=== PATIENT | male | born 1960 | race Caucasian/White ===

== ENCOUNTER 2024-04-05 15:06 | Inpatient (IN) | payer MEDICARE, MEDICAID, SELFPAY ==
[2024-04-05 15:07] VITALS: BP 126/78; PULSE 78; RESP 16; TEMP 36.6; O2SAT 99
[2024-04-05 15:08] VITALS: BP 178/107; PULSE 117; RESP 18; TEMP 36.2; O2SAT 98; BMI 23.3
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
[2024-04-05] MEDS: Ondansetron 4 MG/2 ML Vial IV (15:30)
[2024-04-05] MEDS: Phenobarbital 32.4 MG Tablet 97.2 MG PO (15:30)
[2024-04-05 15:44] LABS: Absolute Lymphocyte Count 2.59 X10^3/uL (0.83-4.51); Absolute Neutrophil Count 2.7 X10^3/uL (2.0-7.7); Basophil# 0.04 X10^3/uL; Basophil% 0.7 % (0-1); Eosinophil# 0.02 X10^3/uL; Eosinophils% 0.3 % (0-5); Hematocrit 33.1 % (40-54); Hemoglobin 11.6 g/dL (13.0-16.5); Lymphocyte # 2.59 X10^3/ul (0.83-4.51); Mean Corpuscular Hgb 31.1 pg (27.0-32.0); Mean Corpuscular Volume 88.7 fL (80-94); Mean Platelet Vol. 8.6 fl (6.2-12.0); Monocyte# 0.56 X10^3/uL; Monocyte% 9.5 % (0-10); NRBC Flagged by Analyzer 0 % (0-5); Neutrophil # 2.66 X10^3/uL (2.7-7.7); Neutrophil % 45.2 % (47-70); Platelet Count 114 K/mm3 (150-450); RBC Distribution Width SD 45.4 fl (35.1-43.9); Red Blood Count 3.73 M/mm3 (4.6-6.2); White Blood Count 5.9 K/mm3 (4.4-11.0)
[2024-04-05 15:53] LABS: International Normalized Ratio 1.1; Prothrombin Time (Protime)PT. 13.8 SECONDS (11.7-14.9)
[2024-04-05 16:06] LABS: AST(SGOT) 30 U/L (15-37); Alanine Aminotransfer ALT/SGPT 21 U/L (16-61); Albumin, Serum 3.8 g/dL (3.2-5.0); Alkaline Phosphatase 84 U/L (45-117); Anion Gap 14 (5-15); BUN 4 mg/dL (7-18); BUN/Creat Ratio 4.3 RATIO (10-20); Calcium,Total 8.7 mg/dL (8.5-10.1); Chloride 96 mmol/L (98-107); Creatinine, Serum 0.94 mg/dL (0.70-1.30); EST Glomerular Filtration Rate 86 mL/min (>60); Est Glom Filt Rate - Afr Amer 104 mL/min (>60); Estimated Creatinine Clearance 81.97 ml/min; Globulin 3.9 g/dL (2.2-4.2); Glucose 99 mg/dL (74-106); Potassium 3.3 mmol/L (3.5-5.1); Protein, Total 7.7 g/dL (6.4-8.2); Sodium Level 127 mmol/L (136-145)
--- NOTE | 2024-04-05 16:25 | NURSING ---
[facility] ETOH DEPENDENCE
[2024-04-05 16:27] LABS: Amphetamine Urine VISTA NEGATIVE (<1000 ng/mL); Barbiturate Urine VISTA NEGATIVE (< 200 ng/mL); Benzodiazepine Urine VISTA NEGATIVE (< 200 ng/mL); Cocaine Urine VISTA NEGATIVE (< 300 ng/mL); Ecstacy Urine VISTA NEGATIVE (< 500 ng/mL); Methadone Urine VISTA NEGATIVE (< 300 ng/mL); PCP Urine VISTA NEGATIVE (< 25 ng/mL); THC Urine VISTA POSITIVE (< 50 ng/mL); Vista UDS pH Range 6
[2024-04-05 17:02] VITALS: BP 155/92; PULSE 94; RESP 16; TEMP 36.3; O2SAT 98
[2024-04-05 17:07] VITALS: BP 155/92; PULSE 94; RESP 16; TEMP 36.3; O2SAT 98
[2024-04-05] MEDS: 0.9% Normal Saline (1000mL) 1,000 ML 150 ML IV (17:08)
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
[2024-04-05 17:24] VITALS: BMI 23.1
[2024-04-05 18:00] VITALS: BP 162/92; PULSE 96; RESP 18; TEMP 36.9; O2SAT 100
[2024-04-05] MEDS: hydrOXYzine PAM 25 MG Capsule 50 MG PO (18:02)
[2024-04-05] MEDS: Potassium Chloride Oral Tablet 20 MEQ 40 MEQ PO (18:02)
[2024-04-05] MEDS: Loperamide 2 MG Capsule PO (18:02)
[2024-04-05] MEDS: Acetaminophen 500 MG Tablet PO (18:02)
[2024-04-05] MEDS: Pantoprazole Sodium 40 MG Tablet PO ×2 (18:02→22:49)
[2024-04-05] MEDS: Tamsulosin HCl 0.4 MG Capsule PO (18:02)
[2024-04-05] MEDS: 0.9% Normal Saline (1000mL) 1,000 ML 75 ML IV (18:02)
[2024-04-05 18:22] LABS: Phosphorus 1.7 mg/dL (2.5-4.9)
[2024-04-05] MEDS: Losartan Potassium 100 MG Tablet PO (18:42)
[2024-04-05 19:55] VITALS: BP 120/50; PULSE 115; RESP 18; TEMP 36.4; O2SAT 98
[2024-04-05] MEDS: Phenobarbital 32.4 MG Tablet 64.8 MG PO (20:00)
[2024-04-05 21:02] LABS: Magnesium 1.2 mg/dL (1.6-2.6); Sodium Level 135 mmol/L (136-145)
[2024-04-05] MEDS: Pravastatin 40 MG Tablet PO (22:49)
[2024-04-05] MEDS: Sodium Chloride 1 GM Tablet PO (22:49)
[2024-04-05] MEDS: Mirtazapine 15 MG Tablet PO (22:49)
[2024-04-05 23:14] LABS: Bedside Glucose 108 mg/dL (74-106)
[2024-04-06 00:10] LABS: Sodium Level 138 mmol/L (136-145)
[2024-04-06 00:18] VITALS: BP 138/78; PULSE 95; RESP 18; TEMP 36.6; O2SAT 98
[2024-04-06] MEDS: Phenobarbital 32.4 MG Tablet 64.8 MG PO ×7 (00:23→23:22)
[2024-04-06 04:24] VITALS: BP 151/82; PULSE 100; RESP 18; TEMP 36.8; O2SAT 99
[2024-04-06] MEDS: Levothyroxine 75 MCG Tablet PO (06:32)
[2024-04-06] MEDS: 0.9% Normal Saline (1000mL) 1,000 ML 75 ML IV (06:32)
[2024-04-06 06:57] LABS: Bedside Glucose 91 mg/dL (74-106)
--- NOTE | 2024-04-06 07:24 | PN.HOSP_ITS ---
Reason for Visit Reason for Visit: Acute alcohol withdrawal/detox Subjective Subjective Mr. Carrasco is a 64-year-old white male who presents emergency department at [facility] on 04/05/2024 for alcohol detox. Patient has a history of chronic alcohol use and drinks about 20 beers daily. He drank about 4-5 beers prior to coming to the emergency department and reported he felt mildly restless jittery and anxious at the time of presentation but denied any tremor, shivering, or disequilibrium as well as nausea vomiting. His remote history of tobacco abuse. 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 He denied any other substance abuse. He has been through detox before but had relapsed. Vital signs on presentation showed temperature of 97.8, heart rate 78, respiratory rate 16, blood pressure was 126/78, pulse ox was 99% on room air. His CBC showed a mild normocytic anemia with a hemoglobin of 11.6 and a thrombocytopenia with a platelet count of 114,000. Chemistry panel was markedly abnormal on presentation with a sodium of 127 but on repeat improved to 138, hypokalemia with potassium of 3.3 and a serum bicarb of 17. Serum creatinine was normal. Phosphorus was low at 1.7 and magnesium was 1.2. Total bilirubin was 1.2 liver enzymes were normal. His toxicology screen was positive for cannabis and his EtOH level was 297. He was admitted to the medical surgical floor and placed on a phenobarbital taper as well as adjunctive medication for symptom control, thiamine, and folate. CIAL was ordered for monitoring and 180 was consulted. Objective Data Objective Data Vital Signs: Vital Signs Temp Pulse Resp BP Pulse Ox O2 Del Method 98.3 F 100 18 151/82 H 99 Room Air 04/06/24 04:24 04/06/24 04:24 04/06/24 04:24 04/06/24 04:24 04/06/24 04:24 04/06/24 04:24 Oxygen Delivery Method Room Air Weight: 73.255 kg Body Mass Index (BMI) 23.1 Intake & Output: Intake and Output for Last 24 Hours 04/04/24 04/05/24 04/06/24 23:59 23:59 23:59 Intake Total 152.5 / 152.5 1837.5 / 1837.5 Balance 152.5 / 152.5 1837.5 / 1837.5 Lab / Micro Data 04/05/24 15:25 04/06/24 07:41 Labs: Laboratory Results - last 24 hr 04/05/24 15:13: Urine Opiates Screen NEGATIVE, Urine Methadone Screen NEGATIVE, Ur Barbiturates Screen NEGATIVE, Ur Phencyclidine Scrn NEGATIVE, Ur Amphetamines Screen NEGATIVE, MDMA (Ecstasy) Screen NEGATIVE, U Benzodiazepines Scrn NEGATIVE, Urine Cocaine Screen NEGATIVE, U Cannabinoids Screen POSITIVE H, Ur Drug Screen Comment 04/05/24 15:25: WBC 5.9, RBC 3.73 L, Hgb 11.6 L, Hct 33.1 L, MCV 88.7, MCH 31.1, MCHC 35.0, RDW Std Deviation 45.4 H, RDW Coeff of Heidi 14.0, Plt Count 114 L, MPV 8.6, Immature Gran % (Auto) 0.300, Neut % (Auto) 45.2 L, Lymph % (Auto) 44.0 H, Highland % (Auto) 9.5, Eos % (Auto) 0.3, Baso % (Auto) 0.7, Absolute Neuts (auto) 2.7, Absolute Lymphs (auto) 2.59, Nucleated RBC % 0, PT 13.8, INR 1.1, Sodium 127 L, Potassium 3.3 L, Chloride 96 L, Carbon Dioxide 17.0 L, Anion Gap 14, BUN 4 L, Creatinine 0.94, Estim Creat Clear Calc 81.97, Est GFR (MDRD) Af Amer 104, Est GFR (MDRD) Non-Af 86, BUN/Creatinine Ratio 4.3 L, Glucose 99, Calcium 8.7, P hosphorus 1.7 L, Total Bilirubin 1.20 H, AST 30, ALT 21, Alkaline Phosphatase 84, Total Protein 7.7, Albumin 3.8, Globulin 3.9, Albumin/Globulin Ratio 1.0, Ethyl Alcohol 297.0 04/05/24 20:38: Sodium 135 L, Magnesium 1.2 L 04/05/24 22:52: POC Glucose 108 H 04/05/24 23:39: Sodium 138 04/06/24 06:36: POC Glucose 91 Physical Exam Const alert, oriented x3, no apparent distress and average body habitus; Negative for healthy appearing Constitutional Narrative: Middle-aged, white male, lying in bed, appears older than stated age, appears comfortable, nontoxic, very cooperative and pleasant HEENT head/scalp atraumatic and moist oral mucous membranes HEENT Narrative: Mallampati 2, no thrush, patient is a dentulous Head and Scalp: normocephalic Eyes PERRL, EOMs intact bilaterally and conjunctivae normal Eyes Narrative: No scleral icterus Neck no lymphadenopathy and supple Neck Narrative: Trachea midline, no thyroid enlargement Resp normal respiratory effort, no retractions, no use of accessory muscles and clear to auscultation bilaterally Auscultation: Negative for rales, rhonchi or wheezes Cardio regular rate, regular rhythm, S1 normal heart sound, S2 normal heart sound, no murmurs, no rub, no gallops and no clicks GI normal to inspection, nondistended, normoactive bowel sounds, soft to palpation and non-tender Extremity no clubbing, cyanosis or edema Extremity Narrative: Pedal pulses are 2+ Skin no wounds, skin turgor normal, no jaundice, no petechiae and no mottling Neuro oriented x3, moves all extremities and no focal motor deficits Neuro Narrative: Tremor noted Speech: speech normal Psych affect normal Psych Narrative: Very pleasant, interacts appropriately Assessment & Plan Assessment/Plan (1) Alcohol dependence: (2) Alcohol withdrawal: (3) Hypokalemia: (4) Hyponatremia: (5) Hypophosphatemia: (6) Hypomagnesemia: PLAN: Plan Acute alcohol withdrawal -Drinks about 20 beers a day and was intoxicated at time of presentation with a blood alcohol level of 297 -Continue phenobarbital taper -continue CIWA -Supportive medications for symptom management -Continue thiamine -Continue with folate -180 consultation for assistance with discharge planning Hypomagnesemia -Repeat a.m. lab and replace if low Hypophosphatemia -Repeat a.m. lab and replace if low Hypokalemia -Repeat a.m. lab and replace if low Hyponatremia -Resolved Metabolic acidosis -Serum bicarb on admission was 17 with an elevated ion anion gap -Suspect starvation versus alcohol -A.m. lab is pending Normocytic anemia -Baseline is unknown -Will repeat CBC in a.m. for stability Thrombocytopenia -Platelets 114,000 on admission -Suspect chronic with history of liver disease however baseline is unknown -Repeat lab to monitor for stability in the a.m. 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 Mcmahan after discharge -No current signs of decompensation GERD -Suspect some acute gastritis with the amount of alcohol he drinks and symptoms on presentation -Discontinue home famotidine -Continue Protonix IV twice daily -GI referral at discharge BPH with obstruction -Continue Flomax DM-2 -Hemoglobin A1c is pending -Hold home metformin -SSI -Accu-Cheks as ordered Hypertension -continue home losartan -Continue home Lasix -Continue home amlodipine 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 -Continue home levothyroxine Osteoporosis -Restart Fosamax at discharge Gout -Continue home colchicine DVT prophylaxis -SCDs -Overall low risk and encourage early and frequent ambulation CODE STATUS -Full code as per discussion--> will place order Charges/Coding Visit Charges Inpatient E&M: 67900 [facility] Hosp L3
[2024-04-06 08:00] VITALS: BP 162/89; PULSE 96; RESP 13; TEMP 36.9; O2SAT 98
[2024-04-06] MEDS: Ondansetron 8 MG Tablet PO (08:09)
[2024-04-06] MEDS: Furosemide 20 MG Tablet PO (08:09)
[2024-04-06] MEDS: Folic Acid 1 MG Tablet PO (08:09)
[2024-04-06] MEDS: Loperamide 2 MG Capsule PO ×2 (08:09→16:35)
[2024-04-06] MEDS: Pantoprazole Sodium 40 MG Tablet PO ×2 (08:10→19:48)
[2024-04-06] MEDS: Thiamine Hydrochloride 100 MG Tablet PO (08:10)
[2024-04-06] MEDS: Potassium Chloride Oral Tablet 20 MEQ 40 MEQ PO (08:10)
[2024-04-06] MEDS: amLODIPine 2.5 MG Tablet PO (08:10)
[2024-04-06] MEDS: Losartan Potassium 100 MG Tablet PO (08:11)
[2024-04-06] MEDS: Sodium Chloride 1 GM Tablet PO ×2 (08:12→21:30)
[2024-04-06] MEDS: hydrOXYzine PAM 25 MG Capsule 50 MG PO ×2 (08:17→16:35)
[2024-04-06] MEDS: Dicyclomine 10 MG Capsule 20 MG PO ×2 (08:17→16:35)
[2024-04-06] MEDS: Gabapentin 300 MG Capsule PO ×2 (08:18→18:55)
[2024-04-06] MEDS: Acetaminophen 500 MG Tablet PO (08:18)
[2024-04-06 08:27] LABS: Anion Gap 5 (5-15); BUN 6 mg/dL (7-18); BUN/Creat Ratio 6.4 RATIO (10-20); Calcium,Total 8.4 mg/dL (8.5-10.1); Chloride 111 mmol/L (98-107); Creatinine, Serum 0.93 mg/dL (0.70-1.30); EST Glomerular Filtration Rate 87 mL/min (>60); Est Glom Filt Rate - Afr Amer 105 mL/min (>60); Estimated Creatinine Clearance 82.86 ml/min; Glucose 96 mg/dL (74-106); Magnesium 1.3 mg/dL (1.6-2.6); Phosphorus 1.6 mg/dL (2.5-4.9); Sodium Level 137 mmol/L (136-145)
--- NOTE | 2024-04-06 10:57 | ADDICTION ---
This property underwriter met with PT to conduct ASAM, MSE, AUDIT, DUDIT assessments. PT A+Ox4 and participated actively. All RAMP assessments completed. PT reports that plans to f/u with treatment services in [facility]. He has agreed to outpatient treatment as well as meets the criteria for the Vivitrol shot and would like it prior to d/c. [facility] will follow up with later injections.
[2024-04-06] MEDS: Insulin Lispro 100 UNIT/ML INSULN.PEN SC (11:34)
[2024-04-06 11:53] LABS: Bedside Glucose 180 mg/dL (74-106)
[2024-04-06 12:08] LABS: Hemoglobin A1c 4.6 % (3.8-5.6)
[2024-04-06] MEDS: Magnesium Sulfate 2 GM in Dextrose 5%-Water (100mL Bag) 100 ML IV (12:19)
[2024-04-06] MEDS: Sodium Phosphate/Na Biphos 30 MMOL in 0.9% Normal Saline (250mL Bag) 250 ML 62.5 MMOL IV (12:20)
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
--- NOTE | 2024-04-06 15:57 | CHAPLAIN ---
Type of Pastoral Visit ___ Initial Visit ___ Follow-up Visit ___ On-call Visit ___ General Patient Visit ___ Spiritual Assessment ___ Family Conference ___ Bereavement ___ Rapid Response ___ Code Blue ___ Other (describe below) Pastoral Care Referral From ___ Patient ___ Family ___ Nurse ___ Physician ___ Doubler Helper ___ Collections Analyst ___ Other (describe below) Sacrament/Intervention ___ Active listening ___ Anointing ___ Evangelical ___ Bereavement ___ Communion ___ Zari exploration ___ ___ Life review ___ Prayer ___ Reconciliation ___ Sacrament of Sick ___ Supportive presence ___ Wedding ___ Other (describe below) Pastoral Comments patient was sound asleep; left a calling card and will attempt a visit tomorrow
[2024-04-06 16:00] VITALS: BP 135/91; PULSE 90; RESP 13; TEMP 36.7; O2SAT 99
[2024-04-06] MEDS: Tamsulosin HCl 0.4 MG Capsule PO (16:23)
[2024-04-06 16:34] VITALS: BP 165/91; PULSE 90
[2024-04-06] MEDS: hydrALAZINE 20 MG/ML Vial 10 MG IV (16:34)
[2024-04-06 17:04] LABS: Bedside Glucose 97 mg/dL (74-106)
[2024-04-06] MEDS: Mirtazapine 15 MG Tablet PO (21:30)
[2024-04-06] MEDS: Pravastatin 40 MG Tablet PO (21:30)
[2024-04-06 22:00] VITALS: BP 132/71; PULSE 95; RESP 17; TEMP 36.4; O2SAT 99
[2024-04-07 01:48] LABS: Bedside Glucose 108 mg/dL (74-106)
[2024-04-07] MEDS: Phenobarbital 32.4 MG Tablet 64.8 MG PO ×6 (03:43→23:50)
[2024-04-07] MEDS: Levothyroxine 75 MCG Tablet PO (03:44)
[2024-04-07 03:45] VITALS: BP 144/90; PULSE 96; RESP 16; TEMP 36.6; O2SAT 100
[2024-04-07] MEDS: hydrOXYzine PAM 25 MG Capsule 50 MG PO ×3 (05:27→18:16)
[2024-04-07] MEDS: Gabapentin 300 MG Capsule PO ×3 (05:28→21:34)
[2024-04-07 06:05] LABS: Anion Gap 5 (5-15); BUN 8 mg/dL (7-18); BUN/Creat Ratio 7.8 RATIO (10-20); Calcium,Total 8.5 mg/dL (8.5-10.1); Chloride 109 mmol/L (98-107); Creatinine, Serum 1.02 mg/dL (0.70-1.30); EST Glomerular Filtration Rate 78 mL/min (>60); Est Glom Filt Rate - Afr Amer 95 mL/min (>60); Estimated Creatinine Clearance 75.54 ml/min; Glucose 131 mg/dL (74-106); Magnesium 1.5 mg/dL (1.6-2.6); Phosphorus 2.2 mg/dL (2.5-4.9); Potassium 3.9 mmol/L (3.5-5.1); Sodium Level 140 mmol/L (136-145)
[2024-04-07 07:11] LABS: Bedside Glucose 132 mg/dL (74-106)
[2024-04-07] MEDS: Potassium Chloride Oral Tablet 20 MEQ 40 MEQ PO (07:20)
[2024-04-07] MEDS: Thiamine Hydrochloride 100 MG Tablet PO (07:20)
[2024-04-07] MEDS: amLODIPine 2.5 MG Tablet PO (07:20)
[2024-04-07] MEDS: Pantoprazole Sodium 40 MG Tablet PO ×2 (07:20→21:34)
[2024-04-07] MEDS: Folic Acid 1 MG Tablet PO (07:20)
[2024-04-07] MEDS: Losartan Potassium 100 MG Tablet PO (07:21)
[2024-04-07] MEDS: Furosemide 20 MG Tablet PO (07:21)
[2024-04-07] MEDS: Sodium Chloride 1 GM Tablet PO ×2 (07:21→21:34)
[2024-04-07] MEDS: Dicyclomine 10 MG Capsule 20 MG PO ×3 (07:29→23:50)
[2024-04-07] MEDS: Loperamide 2 MG Capsule PO (07:29)
[2024-04-07 07:30] VITALS: BP 145/93; PULSE 101; RESP 14; RESP 15; TEMP 36.7; O2SAT 99
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
[2024-04-07] MEDS: Magnesium Sulfate 2 GM in Dextrose 5%-Water (100mL Bag) 100 ML IV (10:34)
[2024-04-07] MEDS: Sodium Phosphate/Na Biphos 21 MMOL in 0.9% Normal Saline (250mL Bag) 250 ML 84 MMOL IV (10:34)
[2024-04-07] MEDS: 0.9% Saline Lock 10 ML Syringe IV ×2 (10:35→10:47)
[2024-04-07] MEDS: 0.9% Normal Saline (250mL Bag) 250 ML 15 ML IV ×2 (10:46→10:48)
[2024-04-07 11:23] LABS: Bedside Glucose 132 mg/dL (74-106)
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
--- NOTE | 2024-04-07 13:25 | PCM.PN.HOSP ---
Reason for Visit Reason for Visit: Alcohol detox Subjective Subjective Patient states he is developed a sinus headache and some congestion. Concerned that he may have a viral upper respiratory infection versus allergies. Otherwise states that from a withdrawal standpoint he seems to be doing okay. He is reporting that the plan is for inpatient treatment and wants with however it looks like he is supposed to follow-up as an outpatient in [place] and receive Vivitrol. We did discuss probable discharge tomorrow if he continues to feel well and patient is agreeable. Objective Data Objective Data Vital Signs: Vital Signs Temp Pulse Resp BP Pulse Ox O2 Del Method 98.0 F 101 H 15 145/93 H 99 Room Air 04/07/24 07:30 04/07/24 07:30 04/07/24 07:30 04/07/24 07:30 04/07/24 07:30 04/07/24 07:30 Oxygen Delivery Method Room Air Weight: 73.255 kg Body Mass Index (BMI) 23.1 Intake & Output: Intake and Output for Last 24 Hours 04/05/24 04/06/24 04/07/24 23:59 23:59 23:59 Intake Total 152.5 / 152.5 3201.5 / 3201.5 300.25 / 300.25 Balance 152.5 / 152.5 3201.5 / 3201.5 300.25 / 300.25 Lab / Micro Data 04/05/24 15:25 04/07/24 05:05 Labs: Laboratory Results - last 24 hr 04/06/24 16:25: POC Glucose 97 04/06/24 21:27: POC Glucose 108 H 04/07/24 05:05: Sodium 140, Potassium 3.9, Chloride 109 H, Carbon Dioxide 26.0, Anion Gap 5, BUN 8, Creatinine 1.02, Estim Creat Clear Calc 75.54, Est GFR (MDRD) Af Amer 95, Est GFR (MDRD) Non-Af 78, BUN/Creatinine Ratio 7.8 L, Glucose 131 H, Calcium 8.5, Phosphorus 2.2 L, Magnesium 1.5 L 04/07/24 06:37: POC Glucose 132 H 04/07/24 10:57: POC Glucose 132 H Physical Exam Const alert, oriented x3, no apparent distress, average body habitus and well nourished; Negative for healthy appearing Constitutional Narrative: Middle-aged, white male, lying in bed, appears older than stated age, appears comfortable, nontoxic, very cooperative and pleasant HEENT head/scalp atraumatic and moist oral mucous membranes Resp normal respiratory effort, no retractions, no use of accessory muscles and clear to auscultation bilaterally Auscultation: Negative for rales, rhonchi or wheezes Cardio regular rate, regular rhythm, S1 normal heart sound, S2 normal heart sound, no murmurs, no rub, no gallops and no clicks GI normal to inspection, nondistended, normoactive bowel sounds, soft to palpation and non-tender Extremity no clubbing, cyanosis or edema Neuro oriented x3, moves all extremities and no focal motor deficits Neuro Narrative: Tremor has significantly improved Speech: speech normal Psych affect normal Psych Narrative: Very pleasant, interacts appropriately Assessment & Plan Assessment/Plan (1) Alcohol dependence: (2) Alcohol withdrawal: (3) Hypokalemia: (4) Hyponatremia: (5) Hypophosphatemia: (6) Hypomagnesemia: PLAN: Plan Acute alcohol withdrawal -Drinks about 20 beers a day and was intoxicated at time of presentation with a blood alcohol level of 297 -Continue phenobarbital taper -continue CIWA -Supportive medications for symptom management -Continue thiamine -Continue with folate -180 has seen the patient plan discharge follow-up outpatient Hypomagnesemia -Improved but still low will rebolus today and recheck Hypophosphatemia -Improved but still low will rebolus and recheck tomorrow Hypokalemia -Resolved Hyponatremia -Resolved Metabolic acidosis -Resolved Normocytic anemia -Baseline is unknown Thrombocytopenia -Platelets 114,000 on admission -Suspect chronic with history of liver disease however baseline is unknown Alcoholic liver disease -Per report patient states he has seen GI previously but 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 Mcmahan after discharge -No current signs of decompensation GERD -Suspect some acute gastritis with the amount of alcohol he drinks and symptoms on presentation -Transition Protonix from IV to p.o. daily -GI referral at discharge BPH with obstruction -Continue Flomax DM-2 -4.6 A1c -Hold home metformin -SSI -Accu-Cheks as ordered Hypertension -continue home losartan -Continue home Lasix -Continue home amlodipine 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 -Continue home levothyroxine Osteoporosis -Restart Fosamax at discharge Gout -Continue home colchicine DVT prophylaxis -SCDs -Overall low risk and encourage early and frequent ambulation CODE STATUS -Full code as per discussion Charges/Coding Visit Charges Inpatient E&M: 02156 [facility] Hosp L2
[2024-04-07 14:00] VITALS: BP 142/85; PULSE 101; RESP 14; TEMP 36.4; O2SAT 97
[2024-04-07] MEDS: Tamsulosin HCl 0.4 MG Capsule PO (16:25)
[2024-04-07 16:36] LABS: Bedside Glucose 117 mg/dL (74-106)
[2024-04-07] MEDS: Acetaminophen 500 MG Tablet PO (18:16)
[2024-04-07 20:19] VITALS: BP 153/87; PULSE 97; RESP 16; TEMP 36.6; O2SAT 100
[2024-04-07] MEDS: Mirtazapine 15 MG Tablet PO (21:34)
[2024-04-07] MEDS: Pravastatin 40 MG Tablet PO (21:34)
[2024-04-07] MEDS: Insulin Lispro 100 UNIT/ML INSULN.PEN SC (21:34)
[2024-04-07 21:58] LABS: Bedside Glucose 152 mg/dL (74-106)
[2024-04-08] MEDS: Phenobarbital 32.4 MG Tablet 64.8 MG PO ×3 (02:35→15:19)
[2024-04-08] MEDS: hydrOXYzine PAM 25 MG Capsule 50 MG PO ×3 (02:35→13:14)
[2024-04-08] MEDS: Acetaminophen 500 MG Tablet PO ×2 (02:35→07:05)
[2024-04-08 02:42] VITALS: BP 140/87; PULSE 80; RESP 16; TEMP 36.3; O2SAT 100
[2024-04-08] MEDS: Levothyroxine 75 MCG Tablet PO (06:19)
[2024-04-08] MEDS: Ondansetron 8 MG Tablet PO ×2 (06:24→15:18)
[2024-04-08] MEDS: Dicyclomine 10 MG Capsule 20 MG PO ×2 (06:24→13:14)
[2024-04-08] MEDS: Gabapentin 300 MG Capsule PO ×2 (06:26→13:15)
[2024-04-08 07:31] LABS: Bedside Glucose 147 mg/dL (74-106)
[2024-04-08 08:03] LABS: Magnesium 1.8 mg/dL (1.6-2.6); Phosphorus 2.5 mg/dL (2.5-4.9)
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
[2024-04-08] MEDS: amLODIPine 2.5 MG Tablet PO (09:01)
[2024-04-08] MEDS: Pantoprazole Sodium 40 MG Tablet PO (09:01)
[2024-04-08] MEDS: Potassium Chloride Oral Tablet 20 MEQ 40 MEQ PO (09:01)
[2024-04-08] MEDS: Folic Acid 1 MG Tablet PO (09:01)
[2024-04-08] MEDS: Losartan Potassium 100 MG Tablet PO (09:02)
[2024-04-08] MEDS: Thiamine Hydrochloride 100 MG Tablet PO (09:02)
[2024-04-08] MEDS: Furosemide 20 MG Tablet PO (09:02)
[2024-04-08] MEDS: Sodium Chloride 1 GM Tablet PO (09:02)
[2024-04-08 09:13] VITALS: BP 141/85; PULSE 84; RESP 18; TEMP 36.4; O2SAT 100
[2024-04-08 09:18] VITALS: BP 141/85; PULSE 84; RESP 18; TEMP 36.4; O2SAT 100
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
--- NOTE | 2024-04-08 12:12 | CHAPLAIN ---
Type of Pastoral Visit ___ Initial Visit _x__ Follow-up Visit ___ On-call Visit ___ General Patient Visit ___ Spiritual Assessment ___ Family Conference ___ Bereavement ___ Rapid Response ___ Code Blue ___ Other (describe below) Pastoral Care Referral From _x__ Patient ___ Family ___ Nurse ___ Physician ___ Automatic Grinding Machine Operator ___ Security Sme _x__ Other (describe below) Sacrament/Intervention _x__ Active listening ___ Anointing ___ Yarsanism ___ Bereavement ___ Communion _x__ Zari exploration ___ ___ Life review _x__ Prayer ___ Reconciliation ___ Sacrament of Sick _x__ Supportive presence ___ Wedding ___ Other (describe below) Pastoral Comments call came to this retail center receptionist for a visit to this patient who had been seen yesterday; pt had requested visit from retail center receptionist again; per community health outreach worker the pt has a sitter due to SI and comments made during the night; today the patient is upset and verbally expressive of his frustration at news that I can't go to the rehab but I'm going to be sent to psychiatric hospital; pt makes plea for help and intervention; pt states that he has no clothes and has no ride unless they call my [id number]; pt continues to verbalize his fears and feelings of helplessness stating I have no one, I'm alone in this world, if I don't go to rehab I'm just going to drink again; pt asks for prayers and for this retail center receptionist to stay with me today; this retail center receptionist gave prayer and asked pt to focus on the possibilities of good that could come from this and to give these decisions a try at working; this retail center receptionist gave underwear, socks, shorts, and a blanket to the pt as a gift from retail center receptionist supplies
--- NOTE | 2024-04-08 13:20 | NURSING ---
Pt repeatedly stating medications withheld and not getting the medications needed. Santos NICOLAS for med administration. PRN medications requested administered with in 10 min. Pt complaining that his stuff was taken away and bathroom door was locked. Pt is a [facility]AMP pt and bathroom door was locked per protocol for suicide precautions.
--- NOTE | 2024-04-08 13:33 | PCM.DC.SUM ---
Providers Date of Admission: 04/05/24 Date of Discharge: 04/08/24 Primary Care Physician: Dr. Sudarshan Llanos MD Reason For Visit: ETOH DEPENDENCE Diagnosis Discharge Diagnosis (1) Alcohol dependence: Status: Acute Code(s): F10.20 - Alcohol dependence, uncomplicated (2) Alcohol withdrawal: Status: Acute Code(s): F10.939 - Alcohol use, unspecified with withdrawal, unspecified (3) Hypokalemia: Status: Acute Code(s): E87.6 - Hypokalemia (4) Hyponatremia: Status: Acute Code(s): E87.1 - Hypo-osmolality and hyponatremia (5) Hypophosphatemia: Status: Acute Code(s): E83.39 - Other disorders of phosphorus metabolism (6) Hypomagnesemia: Status: Acute Code(s): E83.42 - Hypomagnesemia Plan Medications at Discharge Home Medications alendronate 70 mg tablet (Fosamax) 70 mg PO MO 11/11/22 ondansetron 4 mg disintegrating tablet 4 mg PO Q8H 11/11/22 amlodipine 2.5 mg tablet 2.5 mg PO DAILY #3 tabs 04/08/24 colchicine 0.6 mg tablet 0.6 mg PO TID #9 tabs 04/08/24 dicyclomine 20 mg tablet 20 mg PO TID #9 tabs 04/08/24 furosemide 20 mg tablet 20 mg PO DAILY #3 tabs 04/08/24 hydroxyzine pamoate 25 mg capsule 50 mg (2 x 25 mg) PO BID #6 caps 04/08/24 levothyroxine 75 mcg tablet (Synthroid) 75 mcg PO DAILY #3 tabs 04/08/24 loratadine 10 mg tablet 10 mg PO DAILY #3 tabs 04/08/24 losartan 100 mg tablet 100 mg PO DAILY #3 tabs 04/08/24 metformin 500 mg tablet 500 mg PO BID #6 tabs 04/08/24 mirtazapine 15 mg tablet 15 mg PO QHS #3 tabs 04/08/24 nitroglycerin 0.4 mg sublingual tablet (Nitrostat) 0.4 mg sublingual Q5M PRN chest pain #3 tabs 04/08/24 pantoprazole 40 mg tablet,delayed release 40 mg PO DAILY #3 tabs 04/08/24 potassium chloride 10 mEq capsule,extended release 10 meq PO DAILY #3 caps 04/08/24 pravastatin 40 mg tablet 40 mg PO DAILY #3 tabs 04/08/24 tamsulosin 0.4 mg capsule 0.4 mg PO DAILY #3 caps 04/08/24 tizanidine 4 mg tablet 4 mg PO Q6H #12 tabs 04/08/24 Hospital Course Operations None Procedures None Summary of Care Provided Minutes Spent on Discharge: 37 Hospital Course: Mr. Ni is a 64-year-old white male who presents emergency department at [facility] on 04/05/2024 for alcohol detox. Patient has a history of chronic alcohol use and drinks about 20 beers daily. He drank about 4-5 beers prior to coming to the emergency department and reported he felt mildly restless jittery and anxious at the time of presentation but denied any tremor, shivering, or disequilibrium as well as nausea vomiting. His remote history of tobacco abuse. 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 He denied any other substance abuse. He has been through detox before but had relapsed. Vital signs on presentation showed temperature of 97.8, heart rate 78, respiratory rate 16, blood pressure was 126/78, pulse ox was 99% on room air. His CBC showed a mild normocytic anemia with a hemoglobin of 11.6 and a thrombocytopenia with a platelet count of 114,000. Chemistry panel was markedly abnormal on presentation with a sodium of 127 but on repeat improved to 138, hypokalemia with potassium of 3.3 and a serum bicarb of 17. Serum creatinine was normal. Phosphorus was low at 1.7 and magnesium was 1.2. Total bilirubin was 1.2 liver enzymes were normal. His toxicology screen was positive for cannabis and his EtOH level was 297. He was admitted to the medical surgical floor and placed on a phenobarbital taper as well as adjunctive medication for symptom control, thiamine, and folate. CIWA was ordered for monitoring and 180 was consulted. Patient had a overall uneventful withdrawal. He was maintained on his home medications and had no severe symptoms. He was evaluated by 180 as his hope was for inpatient treatment and we were able to arrange that at the time of discharge. They felt that he would be a good Vivitrol candidate as well and was given 1 dose prior to him going to the rehab facility on 04/08/2024. He did have significant electrolyte abnormalities which were corrected. Prescriptions for 72 hours of medications were sent to the pharmacy here prior to discharge to ensure he can have treatment over the weekend at the rehab facility at which she is being discharged. Patient did have some intermittent mood disorder during his stay and did at 1 point threatening suicide and was evaluated by crisis. They cleared him for discharge to rehab facility. Discharge diagnoses: Acute alcohol withdrawal-resolved Hypomagnesemia-resolved Hypophosphatemia-resolved Hypokalemia-resolved Hyponatremia-resolved Metabolic acidosis-resolved Chronic normocytic anemia Chronic thrombocytopenia Alcoholic liver disease GERD BPH DM-2 Hypertension 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 Osteoporosis Gout Physical Exam Const alert, oriented x3, no apparent distress, average body habitus, no limitations and well nourished; Negative for healthy appearing Constitutional Narrative: Middle-aged, white male, sitting up in a chair at the bedside, sitter at the bedside, appears comfortable, nontoxic General Appearance: cooperative, comfortable, well kempt, well developed and anxious Orientation / Consciousness: awake, oriented to person and oriented to place Exam Limitations: no limitations HEENT normocephalic, head/scalp atraumatic, hearing grossly normal bilaterally and moist oral mucous membranes HEENT Narrative: Mallampati 2, no thrush Eyes PERRL, EOMs intact bilaterally and conjunctivae normal Eyes Narrative: No scleral icterus Neck no lymphadenopathy and supple Neck Narrative: Trachea midline, no thyroid enlargement Resp normal respiratory effort, no retractions, no use of accessory muscles and clear to auscultation bilaterally Auscultation: Negative for rales, rhonchi or wheezes Cardio regular rate, regular rhythm, S1 normal heart sound, S2 normal heart sound, no murmurs, no rub, no gallops and no clicks GI normal to inspection, nondistended, normoactive bowel sounds, soft to palpation and non-tender Extremity no clubbing, cyanosis or edema Extremity Narrative: Pedal pulses are 2+ Skin no rashes or lesions noted, no wounds, skin turgor normal, no jaundice, no petechiae and no mottling Neuro oriented x3, CN's II-XII intact bilaterally, moves all extremities and no focal motor deficits Neuro Narrative: No tremor at this time Speech: speech normal Psych affect normal Psych Narrative: Affect is flatter today as he initially thought he was not can to be able to go to an inpatient rehab center and he was quite tearful, mood significantly improved after he found out he had a place to go for inpatient rehab Mood & Affect: anxious Weight / BMI Weight Weight: 73.255 kg Body Mass Index (BMI) 23.1 ABG / Lab / Microbiology Data 04/05/24 15:25 04/07/24 05:05 Laboratory: Laboratory Results - last 24 hr 04/07/24 16:16: POC Glucose 117 H 04/07/24 21:32: POC Glucose 152 H 04/08/24 06:11: Phosphorus 2.5, Magnesium 1.8 04/08/24 06:18: POC Glucose 147 H D/C Instructions Discharge Diet: Low fat / Low cholesterol Meaningful Use Info Meaningful Use Meaningful Use Diagnoses (Choose all that apply): None applicable Ischemic Stroke Statin Dosing Therapy Reference: STATIN DOSE THERAPY REFERENCE: * Patients > 75 years receive moderate or high dose statin therapy. * Patients 75 years or YOUNGER should receive HIGH intensity statin dose unless contraindicated. You will be required to document reason for non-treatment if statin daily dose does not meet guidelines. HIGH DOSE STATIN THERAPY DAILY Atorvastatin > than or = to 40 mg Rosuvastatin > than or = to 20 mg Amlodipine + Atorvastatin > than or = to 2.5/40 mg Ezetimibe + Simvastatin 10/80 mg Simvastatin 80mg Discharge Plan Admission Admit Date/Time: 04/05/24 16:57 Primary Reason for Your Visit: Alcohol detox Attending Provider: Zulma Walsh Primary Care Provider: Sudarshan Llanos Consulting Providers: Cody Parmar Discharge Orders/Prescriptions Prescriptions: Continued ondansetron 4 mg tablet,disintegrating 4 mg PO Q8H alendronate [Fosamax] 70 mg tablet 70 mg PO MO metformin 500 mg tablet 500 mg PO BID Qty: 6 0RF potassium chloride 10 mEq capsule, extended release 10 meq PO DAILY Qty: 3 0RF pravastatin 40 mg tablet 40 mg PO DAILY Qty: 3 0RF tizanidine 4 mg tablet 4 mg PO Q6H Qty: 12 0RF amlodipine 2.5 mg tablet 2.5 mg PO DAILY Qty: 3 0RF levothyroxine [Synthroid] 75 mcg tablet 75 mcg PO DAILY Qty: 3 0RF tamsulosin 0.4 mg capsule 0.4 mg PO DAILY Qty: 3 0RF dicyclomine 20 mg tablet 20 mg PO TID Qty: 9 0RF pantoprazole 40 mg tablet,delayed release (DR/EC) 40 mg PO DAILY Qty: 3 0RF nitroglycerin [Nitrostat] 0.4 mg tablet, sublingual 0.4 mg sublingual Q5M PRN (Reason: chest pain) Qty: 3 0RF Rx Instructions: do not exceed 3 doses per episode furosemide 20 mg tablet 20 mg PO DAILY Qty: 3 0RF mirtazapine 15 mg tablet 15 mg PO QHS Qty: 3 0RF colchicine 0.6 mg tablet 0.6 mg PO TID Qty: 9 0RF losartan 100 mg tablet 100 mg PO DAILY Qty: 3 0RF loratadine 10 mg tablet 10 mg PO DAILY Qty: 3 0RF hydroxyzine pamoate 25 mg capsule 50 mg PO BID Qty: 6 0RF Discontinued olmesartan 40 mg tablet 40 mg PO DAILY albuterol sulfate 90 mcg/actuation HFA aerosol inhaler 1 inh inhalation ONCE famotidine 20 mg tablet 20 mg PO QHS PRN (Reason: stomach upset) sodium chloride 1,000 mg tablet,soluble 1,000 mg PO BID Patient Comments: PT STATES HE HASNT TAKEN IN APPROX 3 WEEKS, TOO EXPENSIVE hydroxyzine HCl 25 mg tablet 25 mg PO Q6H PRN (Reason: itch) Referrals / Follow Up: Sudarshan Llanos MD [Primary Care Provider] - Within 1 Month Disposition Disposition (needs filled in before D/C Order can be placed): Inpatient Rehab Unit/Facility Charges/Coding Visit Charges Inpatient E&M: 69260 Disch Hosp >30min
--- NOTE | 2024-04-08 13:56 | PHA.DC.MR.R ---
Pharmacy [facility] Reconciliation Pharmacy Service has performed discharge medication reconciliation for this patient. The patient's discharge medication list was reviewed for discrepancies and discrepancies were resolved. Medications at Discharge Home Medications alendronate 70 mg tablet (Fosamax) 70 mg PO MO 11/11/22 ondansetron 4 mg disintegrating tablet 4 mg PO Q8H 11/11/22 amlodipine 2.5 mg tablet 2.5 mg PO DAILY #3 tabs 04/08/24 colchicine 0.6 mg tablet 0.6 mg PO TID #9 tabs 04/08/24 dicyclomine 20 mg tablet 20 mg PO TID #9 tabs 04/08/24 furosemide 20 mg tablet 20 mg PO DAILY #3 tabs 04/08/24 hydroxyzine pamoate 25 mg capsule 50 mg (2 x 25 mg) PO BID #6 caps 04/08/24 levothyroxine 75 mcg tablet (Synthroid) 75 mcg PO DAILY #3 tabs 04/08/24 loratadine 10 mg tablet 10 mg PO DAILY #3 tabs 04/08/24 losartan 100 mg tablet 100 mg PO DAILY #3 tabs 04/08/24 metformin 500 mg tablet 500 mg PO BID #6 tabs 04/08/24 mirtazapine 15 mg tablet 15 mg PO QHS #3 tabs 04/08/24 nitroglycerin 0.4 mg sublingual tablet (Nitrostat) 0.4 mg sublingual Q5M PRN chest pain #3 tabs 04/08/24 pantoprazole 40 mg tablet,delayed release 40 mg PO DAILY #3 tabs 04/08/24 potassium chloride 10 mEq capsule,extended release 10 meq PO DAILY #3 caps 04/08/24 pravastatin 40 mg tablet 40 mg PO DAILY #3 tabs 04/08/24 tamsulosin 0.4 mg capsule 0.4 mg PO DAILY #3 caps 04/08/24 tizanidine 4 mg tablet 4 mg PO Q6H #12 tabs 04/08/24
[2024-04-08 14:00] VITALS: BP 139/79; PULSE 90; RESP 18; TEMP 36.4; O2SAT 100
[2024-04-08] MEDS: Vivitrol Administration Needles 1 EACH MC (15:12)
[2024-04-08] MEDS: Naltrexone Microspheres 380 MG SYRINGE IM (15:12)
[2024-04-08] MEDS: Vivitrol ID Card 1 EACH MC (15:13)
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
== END 2024-04-08 18:05 | DRG 897 ==
LOC: ED 16:21 → MS3 17:06
PROVIDERS: Admitting Provider Internal Medicine; Emergency Provider Emergency Medicine; PCP Internal Medicine; Visit Provider Internal Medicine
DX: F10.239 Alcohol dependence with withdrawal, unspecified (principal); E87.1 Hypo-osmolality and hyponatremia; D69.6 Thrombocytopenia, unspecified; E83.39 Other disorders of phosphorus metabolism; E11.22 Type 2 diabetes mellitus with diabetic chronic kidney disease; D64.9 Anemia, unspecified; N18.30 Chronic kidney disease, stage 3 unspecified; E11.40 Type 2 diabetes mellitus with diabetic neuropathy, unspecified; K29.20 Alcoholic gastritis without bleeding; I12.9 Hypertensive chronic kidney disease with stage 1 through stage 4 chronic kidney disease, or unspecified chronic kidney disease; E03.9 Hypothyroidism, unspecified; K70.9 Alcoholic liver disease, unspecified; K21.9 Gastro-esophageal reflux disease without esophagitis; E87.6 Hypokalemia; E83.42 Hypomagnesemia; G47.33 Obstructive sleep apnea (adult) (pediatric); M10.9 Gout, unspecified; N40.0 Benign prostatic hyperplasia without lower urinary tract symptoms; Z79.899 Other long term (current) drug therapy; Z87.891 Personal history of nicotine dependence; Y90.8 Blood alcohol level of 240 mg/100 ml or more
CPT/HCPCS: 36415; 80048; 80053; 80307; 80320; 82962; 83036; 83735; 84100; 84295; 85025; 85610; 97110; 97162; 97166; 97530; 97535; 99284; 99406; J7030; J7050; A4216; G0480; J2405

== ENCOUNTER 2024-05-02 22:55 | Emergency (ER) | payer MEDICARE, MEDICAID, SELFPAY ==
[2024-05-02 22:56] VITALS: BP 179/89; PULSE 97; RESP 18; TEMP 36.8; O2SAT 94; BMI 25.0
--- NOTE | 2024-05-02 23:20 | CT_ITS ---
INDICATION: fall EXAMINATION: CT CERVICAL SPINE - CT Spine Cervical W/O Contrast Injection TECHNIQUE: Helically acquired images were obtained of the cervical spine. 2D reformatted images were reviewed. A radiation dose optimization technique was used for this scan. IV Contrast dosage and agent: None. COMPARISON: CT head on same day. FINDINGS: VERTEBRAE: No fracture or compression deformity. No discrete lytic or blastic abnormality. Normal alignment. Normal craniocervical junction and cervicothoracic junction with mild degenerative change. DISCS and SPINAL CANAL: Mid cervical disc height loss most prominent C5-C6 with small posterior disc osteophyte complexes most prominent C3-C4 and C5-C6 with moderate spinal canal stenosis and moderate to severe neural foraminal stenosis. No critical stenosis. NECK SOFT TISSUES: No prevertebral soft tissue swelling. There is no cervical adenopathy. Bilateral carotid atherosclerosis. LUNG APICES: Clear. CT/Spine Cervical without Contras IMPRESSION: No evidence of acute cervical spinal fracture. Spondylosis as above. Electronically Signed: Beto Urena MD at 0:18 EDT ,
--- NOTE | 2024-05-02 23:20 | CT_ITS ---
INDICATION: head injury EXAMINATION: CT BRAIN - CT Head or Brain W/O Contrast Injection TECHNIQUE: Multiple axial images were obtained of the head without intravenous contrast. A radiation dose optimization technique was used for this scan. IV Contrast dosage and agent: None. 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 No intra- or extra-axial hemorrhage. No evidence of acute infarct. No intracranial mass or mass effect. Mild periventricular and subcortical white matter hypodense chronic small vessel white matter ischemic change. There is preservation of the chaudhry/white matter interface. Posterior fossa structures are unremarkable. Mild carotid atherosclerosis. CSF SPACES: Cerebral volume appropriate for age. No hydrocephalus. Basal cisterns are patent. CALVARIUM, SKULL BASE, PARANASAL SINUSES AND MASTOID AIR CELLS: No acute osseous finding. Paransasal sinuses are clear. Mastoid air cells are clear. ORBITS: Both globes, extraocular muscles, optic nerves and retrobulbar fat appear unremarkable. ASPECTS Score for Acute Strokes: 10 CT/Brain/Head without Contrast IMPRESSION: No CT evidence of acute intracranial hemorrhage or injury. 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 Electronically Signed: Beto Urena MD at 0:15 EDT ,
--- NOTE | 2024-05-02 23:20 | RAD_ITS ---
INDICATION: fall EXAMINATION/TECHNIQUE: X-RAY - XR Pelvis 1 or 2 Views: AP pelvis COMPARISON: None. FINDINGS: PELVIC BONES: No displaced fracture, destructive or sclerotic lesions. Note that overlapping bowel shadows may however obscure fine detail. Sacroiliac joints are unremarkable with mild degenerative change. No widening of the pubic symphysis. Lower lumbar bridging osteophytes. HIPS: Normal bilateral hip alignment with minimal joint space narrowing and osteophyte formation. No visible femoral neck fracture on AP view SOFT TISSUES: No soft tissue swelling or gas. RAD/Pelvis 1 or 2 Views IMPRESSION: No visible fracture. Electronically Signed: Beto Urena MD at 0:10 EDT ,
[2024-05-02 23:31] LABS: Absolute Lymphocyte Count 2.93 X10^3/uL (0.83-4.51); Absolute Neutrophil Count 4.2 X10^3/uL (2.0-7.7); Basophil# 0.05 X10^3/uL; Basophil% 0.6 % (0-1); Eosinophil# 0.21 X10^3/uL; Eosinophils% 2.6 % (0-5); Hematocrit 34.9 % (40-54); Lymphocyte # 2.93 X10^3/ul (0.83-4.51); Lymphocyte % 36.9 % (19-41); Mean Corp Hgb Conc 34.4 g/dL (32-36); Mean Corpuscular Volume 87.3 fL (80-94); Mean Platelet Vol. 8.6 fl (6.2-12.0); Monocyte# 0.48 X10^3/uL; Monocyte% 6.1 % (0-10); NRBC Flagged by Analyzer 0 % (0-5); Neutrophil # 4.19 X10^3/uL (2.7-7.7); Neutrophil % 52.9 % (47-70); Platelet Count 185 K/mm3 (150-450); White Blood Count 7.9 K/mm3 (4.4-11.0)
[2024-05-02 23:50] LABS: AST(SGOT) 29 U/L (15-37); Alanine Aminotransfer ALT/SGPT 29 U/L (16-61); Albumin, Serum 3.8 g/dL (3.2-5.0); Alkaline Phosphatase 49 U/L (45-117); Anion Gap 16 (5-15); BUN 12 mg/dL (7-18); BUN/Creat Ratio 12.7 RATIO (10-20); Bilirubin, Direct 0.14 mg/dL (0.00-0.30); Calcium,Total 8.7 mg/dL (8.5-10.1); Chloride 100 mmol/L (98-107); Creatinine, Serum 0.95 mg/dL (0.70-1.30); EST Glomerular Filtration Rate 85 mL/min (>60); Est Glom Filt Rate - Afr Amer 103 mL/min (>60); Estimated Creatinine Clearance 81.11 ml/min; Globulin 3.6 g/dL (2.2-4.2); Glucose 88 mg/dL (74-106); Potassium 3.3 mmol/L (3.5-5.1); Protein, Total 7.4 g/dL (6.4-8.2); Sodium Level 132 mmol/L (136-145)
[2024-05-02 23:56] VITALS: BP 174/89; PULSE 82; RESP 16; O2SAT 98
[2024-05-03] VITALS: BP 160/70; PULSE 79; RESP 18; O2SAT 99
[2024-05-03] LABS: Amphetamine Urine VISTA NEGATIVE (<1000 ng/mL); Barbiturate Urine VISTA POSITIVE (< 200 ng/mL); Benzodiazepine Urine VISTA NEGATIVE (< 200 ng/mL); Cocaine Urine VISTA NEGATIVE (< 300 ng/mL); Ecstacy Urine VISTA NEGATIVE (< 500 ng/mL); Methadone Urine VISTA NEGATIVE (< 300 ng/mL); PCP Urine VISTA NEGATIVE (< 25 ng/mL); THC Urine VISTA POSITIVE (< 50 ng/mL); Vista UDS pH Range 5
[2024-05-03 01:00] VITALS: BP 171/94; PULSE 89; RESP 18; TEMP 36.8; O2SAT 95
--- NOTE | 2024-05-03 01:04 | PCM.HP.STD ---
[facility] General Date of Service: 05/03/24 Chief Complaint: Wants alcohol detox. [facility] Narrative WOODY NI, is a 64 M with a past medical history of essential hypertension, hypothyroidism, DM-2; of unknown control on Metformin, history of tobacco abuse; with subsequent COPD, SHAYLA; noncompliant with CPAP, CKD; stage III, RA, Gout, Osteoporosis, history of renal calculi, BPH, GERD, history of colonic diverticulosis, RLS, Chronic Depression, PTSD, history of migraine headaches, Glaucoma, OA; with Chronic Pain due to Lumbago and Sciatica, Chronic Anemia with Thrombocytopenia likely due to marrow suppression from EtOH, history of seizure ~1 year ago; likely related to EtOH Withdrawal, history of EtOH Pancreatitis, Chronic Hepatitis C and Chronic EtOH Abuse since age 13; with patient admitting to ~20 beers/day with subsequent Cirrhosis and recent admission here for from April 05, 2024 to April 08, 2024 for EtOH Detox complicated by Hypokalemia, Hyponatremia, Hypophosphatemia and Hypomagnesemia who re-presents to [facility] ER complaining of wanting EtOH Detox again. Mr. Ni was apparently found drunk on the floor of his home by his sister and she had him brought in for further evaluation and treatment. He states he has no one to help him and he is feeling depressed overall but he denies related fever, chills, nausea, vomiting, tremors, jitteriness or hallucinations. In the ER he was noted to have a SHE of 347 mg/dL consistent with Acute EtOH Intoxication in the setting of Chronic EtOH Abuse complicated by a UDS positive for barbiturates and cannabis compounded by clinical evidence of uncontrolled depression and patient being unable to care for himself in his current condition and he was then admitted to the PCU for ongoing care for a stay that is expected to extend beyond 2 midnights. [facility] Medical History Alcohol dependence Alcohol abuse Diabetes Rheumatoid arthritis Osteoporosis Kidney disease Pancreatitis Hepatitis BiPAP (biphasic positive airway pressure) dependence CPAP (continuous positive airway pressure) dependence Smoker COPD (chronic obstructive pulmonary disease) Migraines Seizures Diabetic neuropathy Muscle weakness Personal history of colonic polyps Deficiency of other specified B group vitamins Hyperkalemia Unilateral inguinal hernia PTSD (post-traumatic stress disorder) Abdominal pain Renal stone Slow transit constipation Dysphagia Thrombocytopenia Disorder of teeth and supporting structures Diverticulosis SHAYLA (obstructive sleep apnea) Enlarged prostate without urinary obstruction Insomnia Bilateral foot pain GERD (gastroesophageal reflux disease) Elevated LFTs Gait abnormality Knee pain Chronic pain Anxiety Asthma Glaucoma Localized edema Gout Biotin-dependent carboxylase deficiency, unspecified 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 Lumbago with sciatica HLD (hyperlipidemia) HTN (hypertension) Chronic hepatitis C Alcohol use disorder Diarrhea Nausea and vomiting Anemia Type 2 diabetes mellitus Depression Adrenogenital disorder, unspecified Chronic kidney disease, stage 3 Liver cirrhosis Emphysema lung History of syncope Gallbladder sludge Home Medications ?Medication ?Instructions ?Recorded ?Last Taken ?Type alendronate 70 mg tablet (Fosamax) 70 mg PO MO 11/11/22 03/21/24 History ondansetron 4 mg disintegrating 4 mg PO Q8H 11/11/22 04/02/24 History tablet furosemide 20 mg tablet 20 mg PO DAILY #3 tabs 04/08/24 04/02/24 Rx hydroxyzine pamoate 25 mg capsule 50 mg (2 x 25 mg) PO BID #6 caps 04/08/24 04/02/24 Rx levothyroxine 75 mcg tablet 75 mcg PO DAILY #3 tabs 04/08/24 Unknown Rx (Synthroid) loratadine 10 mg tablet 10 mg PO DAILY #3 tabs 04/08/24 Unknown Rx losartan 100 mg tablet 100 mg PO DAILY #3 tabs 04/08/24 Unknown Rx metformin 500 mg tablet 500 mg PO BID #6 tabs 04/08/24 Unknown Rx mirtazapine 15 mg tablet 15 mg PO QHS #3 tabs 04/08/24 Unknown Rx nitroglycerin 0.4 mg sublingual 0.4 mg sublingual Q5M PRN chest 04/08/24 Unknown Rx tablet (Nitrostat) pain #3 tabs pantoprazole 40 mg tablet,delayed 40 mg PO DAILY #3 tabs 04/08/24 Unknown Rx release pravastatin 40 mg tablet 40 mg PO DAILY #3 tabs 04/08/24 Unknown Rx tizanidine 4 mg tablet 4 mg PO Q6H #12 tabs 04/08/24 Unknown Rx albuterol sulfate 90 mcg/actuation 2 puff inhalation Q6H PRN PRN 05/02/24 Unknown History aerosol inhaler shortness of breath or wheezing famotidine 20 mg tablet 20 mg PO QHS PRN PRN GERD 05/03/24 Unknown History olmesartan 40 mg tablet 40 mg PO DAILY 05/03/24 Unknown History potassium chloride 10 mEq 10 meq PO DAILY 05/03/24 Unknown History tablet,extended release sertraline 50 mg tablet 50 mg PO DAILY 05/03/24 Unknown History Allergy/AdvReac Type Severity Reaction Status Date / Time allopurinol Allergy Intermediate Other Verified 05/02/24 23:01 codeine Allergy Intermediate Other Verified 05/02/24 23:01 Penicillins Allergy Intermediate Other Verified 05/02/24 23:01 Family History Father Prostate cancer History of quadruple bypass Myocardial infarction Surgical History History of cholecystectomy H/O oral surgery Previous back surgery Social History Smoking Status: Never smoker alcohol intake: current alcohol intake frequency: 3 or more drinks per day Alcohol type: beer details: Averages 18 beers per day Vital Signs Vital Signs Vital Signs: 05/02/24 22:56 05/02/24 23:56 05/03/24 00:00 Temperature 98.3 F Temperature Source Temporal Pulse Rate 97 82 79 Respiratory Rate 18 16 18 Blood Pressure 179/89 H 174/89 H 160/70 H Blood Pressure Mean 119 117 100 Pulse Ox 94 98 99 Oxygen Delivery Method Room Air Room Air Room Air Weight Weight: 174 lb 6.17 oz Body Mass Index (BMI) 25.0 Results Medical Records Data Attestation: I reviewed the patient's medical records Lab / Micro Data Attestation: I reviewed the patient's lab results. 05/02/24 23:05 05/02/24 23:05 Labs: Laboratory Results - last 24 hr 05/02/24 23:05: WBC 7.9, RBC 4.00 L, Hgb 12.0 L, Hct 34.9 L, MCV 87.3, MCH 30.0, MCHC 34.4, RDW Std Deviation 45.0 H, RDW Coeff of Heidi 14.0, Plt Count 185, MPV 8.6, Immature Gran % (Auto) 0.900, Neut % (Auto) 52.9, Lymph % (Auto) 36.9, [place] % (Auto) 6.1, Eos % (Auto) 2.6, Baso % (Auto) 0.6, Absolute Neuts (auto) 4.2, Absolute Lymphs (auto) 2.93, Nucleated RBC % 0, Sodium 132 L, Potassium 3.3 L, Chloride 100, Carbon Dioxide 16.0 L, Anion Gap 16 H, BUN 12, Creatinine 0.95, Estim Creat Clear Calc 81.11, Est GFR (MDRD) Af Amer 103, Est GFR (MDRD) Non-Af 85, BUN/Creatinine Ratio 12.7, Glucose 88, Calcium 8.7, Total Bilirubin 0.30, Direct Bilirubin 0.14, AST 29, ALT 29, Alkaline Phosphatase 49, Total Protein 7.4, Albumin 3.8, Globulin 3.6, Ethyl Alcohol 347.0 H* 05/02/24 23:26: Urine Opiates Screen NEGATIVE, Urine Methadone Screen NEGATIVE, Ur Barbiturates Screen POSITIVE H, Ur Phencyclidine Scrn NEGATIVE, Ur Amphetamines Screen NEGATIVE, MDMA (Ecstasy) Screen NEGATIVE, U Benzodiazepines Scrn NEGATIVE, Urine Cocaine Screen NEGATIVE, U Cannabinoids Screen POSITIVE H, Ur Drug Screen Comment Imaging Radiology Impression Brain CT 05/02/24 23:20 IMPRESSION: No CT evidence of acute intracranial hemorrhage or injury. 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 Electronically Signed: Beto Urena MD at 0:15 EDT , Cervical Spine CT 05/02/24 23:20 IMPRESSION: No evidence of acute cervical spinal fracture. Spondylosis as above. Electronically Signed: Beto Urena MD at 0:18 EDT , Pelvis X-Ray 05/02/24 23:20 IMPRESSION: No visible fracture. Electronically Signed: Beto Urena MD at 0:10 EDT , Assessment & Plan Assessment/Plan PLAN: Plan 1. SHE of 347 mg/dL consistent with Acute EtOH Intoxication in the setting of Chronic EtOH Abuse since age 13; with patient admitting to ~20 beers/day with subsequent Cirrhosis in the setting of known Chronic Hepatitis C - Admit to PCU for treatment under the EtOH Detox protocol primarily consisting of Phenobarbital taper. EtOH cessation will be strongly encouraged once patient michael up. Avoid Tylenol and other potentially hepatotoxic agents. We will consult Case Management and [facility] to see this patient on-rounds in the AM for further recommendations with help appreciated in advance. 2. UDS positive for barbiturates and cannabis complicating #1 - Patient will be encouraged not to use illicit drugs. 3. Uncontrolled Depression with PTSD compounding #1 & #2 - Continue home regimen and consider formal psychiatric evaluation once alcohol level drops. 4. Hypokalemia of 3.3 mmol/L present on admission adding to the pathology of #1 - #3 - Give supplemental KCl and then recheck level in the AM to ensure improvement. 5. Recent admission here for from April 05, 2024 to April 08, 2024 for EtOH Detox complicated by Hypokalemia, Hyponatremia, Hypophosphatemia and Hypomagnesemia - Noted. 6. Chronic Anemia with Thrombocytopenia likely due to marrow suppression from EtOH - Stable with hemoglobin of 12 g/dL and platelet count of 185K present on admission. 7. History of seizure ~1 year ago; likely related to EtOH Withdrawal - Noted. 8. History of EtOH Pancreatitis - Noted with no signs of recurrence at this time. 9. OA; with Chronic Pain due to Lumbago and Sciatica amplifying the negative impact of #1 - #7 - Give Ibuprofen prn. 10. Essential hypertension - Continue home regimen plus give IV Hydralazine prn for systolic blood pressure > 160 mmHg. 11. 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 - Resume Synthroid and check TSH. 12. DM-2; of unknown control on Metformin - Hold Metformin. ADA diet. FSBS q. AC/HS plus SSI. Check HgbA1c to objectively assess quality of diabetic control. 13. History of tobacco abuse; with subsequent COPD - Stable with no evidence of acute flare at this time. Tobacco cessation will be strongly encouraged with Nicotine patch offered to control cravings. 14. SHAYLA; noncompliant with CPAP - Noted. 15. CKD; stage III - Stable with creatinine of 0.95 mg/dL, BUN of 12 mg/dL and eGFR of 85 mL/min present on admission. 16. RA - Stable with no evidence of acute flare at this time. 17. Gout - Stable with no evidence of acute flare at this time. 18. Osteoporosis - Stable. 19. History of renal calculi - Noted. 20. BPH - Stable with no signs of urinary retention. 21. GERD - Continue Protonix 40 mg PO daily. 22. History of colonic diverticulosis - Noted. 23. RLS - Resume Mirtazapine as previous. 24. History of migraine headaches - Stable with no evidence of recurrence. 25. Glaucoma - Apparently stable with no complaints of vision loss or eye pain. 26. DVT prophylaxis - Lovenox 40 mg sq daily plus SCD's. Total time: Approximately 75 minutes.
--- NOTE | 2024-05-03 01:08 | EX.ED.DYSGE1 ---
HPI History of Present Illness Chief Complaint: ETOH Intox Informant: patient and EMS Narrative Narrative: Patient is a 64-year-old male with longstanding history of alcohol abuse. He states he drinks roughly 20 beers a day. He states he has done this for almost 50 years. He was recently admitted to our facility for alcohol detox roughly 3 to 4 weeks ago. He states that he has had his father his friend his dog dying and his leave him in the last few months and this is contributed to worsening substance abuse. He states this evening he was drinking as he normally does and lost his balance and fell. He states he is disabled and could not get up. He states his sister found him and called EMS and therefore he was brought to the hospital for evaluation [facility] Medical History Alcohol dependence Alcohol abuse Diabetes Rheumatoid arthritis Osteoporosis Kidney disease Pancreatitis Hepatitis BiPAP (biphasic positive airway pressure) dependence CPAP (continuous positive airway pressure) dependence Smoker COPD (chronic obstructive pulmonary disease) Migraines Seizures Diabetic neuropathy Muscle weakness Personal history of colonic polyps Deficiency of other specified B group vitamins Hyperkalemia Unilateral inguinal hernia PTSD (post-traumatic stress disorder) Abdominal pain Renal stone Slow transit constipation Dysphagia Thrombocytopenia Disorder of teeth and supporting structures Diverticulosis SHAYLA (obstructive sleep apnea) Enlarged prostate without urinary obstruction Insomnia Bilateral foot pain GERD (gastroesophageal reflux disease) Elevated LFTs Gait abnormality Knee pain Chronic pain Anxiety Asthma Glaucoma Localized edema Gout Biotin-dependent carboxylase deficiency, unspecified 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 Lumbago with sciatica HLD (hyperlipidemia) HTN (hypertension) Chronic hepatitis C Alcohol use disorder Diarrhea Nausea and vomiting Anemia Type 2 diabetes mellitus Depression Adrenogenital disorder, unspecified Chronic kidney disease, stage 3 Liver cirrhosis Emphysema lung History of syncope Gallbladder sludge Home Medications ?Medication ?Instructions ?Recorded ?Last Taken ?Type alendronate 70 mg tablet (Fosamax) 70 mg PO MO 11/11/22 03/21/24 History ondansetron 4 mg disintegrating 4 mg PO Q8H 11/11/22 04/02/24 History tablet furosemide 20 mg tablet 20 mg PO DAILY #3 tabs 04/08/24 04/02/24 Rx hydroxyzine pamoate 25 mg capsule 50 mg (2 x 25 mg) PO BID #6 caps 04/08/24 04/02/24 Rx levothyroxine 75 mcg tablet 75 mcg PO DAILY #3 tabs 04/08/24 Unknown Rx (Synthroid) loratadine 10 mg tablet 10 mg PO DAILY #3 tabs 04/08/24 Unknown Rx losartan 100 mg tablet 100 mg PO DAILY #3 tabs 04/08/24 Unknown Rx metformin 500 mg tablet 500 mg PO BID #6 tabs 04/08/24 Unknown Rx mirtazapine 15 mg tablet 15 mg PO QHS #3 tabs 04/08/24 Unknown Rx nitroglycerin 0.4 mg sublingual 0.4 mg sublingual Q5M PRN chest 04/08/24 Unknown Rx tablet (Nitrostat) pain #3 tabs pantoprazole 40 mg tablet,delayed 40 mg PO DAILY #3 tabs 04/08/24 Unknown Rx release pravastatin 40 mg tablet 40 mg PO DAILY #3 tabs 04/08/24 Unknown Rx tizanidine 4 mg tablet 4 mg PO Q6H #12 tabs 04/08/24 Unknown Rx albuterol sulfate 90 mcg/actuation 2 puff inhalation Q6H PRN PRN 05/02/24 Unknown History aerosol inhaler shortness of breath or wheezing famotidine 20 mg tablet 20 mg PO QHS PRN PRN GERD 05/03/24 Unknown History olmesartan 40 mg tablet 40 mg PO DAILY 05/03/24 Unknown History potassium chloride 10 mEq 10 meq PO DAILY 05/03/24 Unknown History tablet,extended release sertraline 50 mg tablet 50 mg PO DAILY 05/03/24 Unknown History Allergy/AdvReac Type Severity Reaction Status Date / Time allopurinol Allergy Intermediate Other Verified 05/02/24 23:01 codeine Allergy Intermediate Other Verified 05/02/24 23:01 Penicillins Allergy Intermediate Other Verified 05/02/24 23:01 Family History Father Prostate cancer History of quadruple bypass Myocardial infarction Surgical History History of cholecystectomy H/O oral surgery Previous back surgery Social History Smoking Status: Never smoker alcohol intake: current alcohol intake frequency: 3 or more drinks per day Alcohol type: beer details: Averages 18 beers per day ROS ROS ED Constitutional Constitutional ED: Denies chills or fever(s) Eyes Eyes: Denies blurry vision or change in vision ENT ENT ED: Denies sore throat Cardiovascular Cardiovascular: Denies chest pain, palpitations or racing heartbeat Respiratory/Chest Respiratory/Chest: Denies cough or dyspnea Gastrointestinal Gastrointestinal: Denies abdominal pain, diarrhea, nausea or vomiting Genitourinary Genitourinary ED: Denies dysuria Musculoskeletal Musculoskeletal: Reports myalgias Integumentary Reports Abrasions Neurologic Neurologic: Denies headache(s) Psychiatric Psychiatric: Reports depression Hematologic/Lymphatic Hematologic/Lymphatic: Denies easy bleeding or easy bruising EXAM Physical Exam Const Vital Signs: 05/02/24 22:56 05/02/24 23:56 05/03/24 00:00 Temperature 98.3 F Temperature Source Temporal Pulse Rate 97 82 79 Respiratory Rate 18 16 18 Blood Pressure 179/89 H 174/89 H 160/70 H Blood Pressure Mean 119 117 100 Pulse Ox 94 98 99 Oxygen Delivery Method Room Air Room Air Room Air 05/03/24 01:00 05/03/24 02:03 Temperature 98.2 F 98.5 F Temperature Source Pulse Rate 89 66 Respiratory Rate 18 18 Blood Pressure 171/94 H 165/87 H Blood Pressure Mean 119 113 Pulse Ox 95 97 Oxygen Delivery Method Positive well nourished and well developed General Appearance ED: well developed HEENT HEENT Narrative: Normocephalic atraumatic No signs of depressed or basilar skull fracture Eyes PERRL and EOMs intact bilaterally General Eye ED: Negative for scleral icterus Neck supple Neck Narrative: No bony deformity or step-off of the cervical spine no midline tenderness to palpation Chest Wall palpation of chest normal Chest Narrative: Chest wall stable without bony deformity or crepitance Resp normal respiratory effort and clear to auscultation bilaterally Resp Narrative: Breath sounds are diminished throughout but overall clear to auscultation without signs of respiratory distress Cardio regular rate and regular rhythm GI normal to inspection, nondistended, normoactive bowel sounds, non-tender and non-distended GI Narrative: No voluntary guarding or rigidity or pulsatile mass Auscultation: normoactive bowel sounds Palpation: soft Back/Spine Back/Spine Narrative: No bony deformity or step-off of the thoracic or lumbar spine no midline tenderness to palpation Extremity normal to inspection Extremity Narrative: Pelvis is stable there is no shortening or external rotation of either lower extremities Patient can lift both arms and legs without difficulty Neuro oriented x3 and CN's II-XII intact bilaterally Sensorium / Orientation: alert Psych Psych Narrative: Patient has a depressed/flat affect Skin no rashes or lesions noted Skin Narrative: Patient has scattered ecchymotic lesions consistent with recurrent falls and superficial abrasions but no signs of secondary infection MDM MDM MDM Narrative Medical decision making narrative: Patient arrived to the hospital hypertensive otherwise with stable vitals. He reported a longstanding history of alcohol abuse and voiced no real desire to quit. However because he had fallen from his alcohol use there was concern that he had a traumatic subdural or subarachnoid hemorrhage or potential compression fracture of the cervical spine. Secondary to his images were obtained. CT scans revealed no underlying trauma. Lab work showed polysubstance abuse with him testing positive for habituate and marijuana and an elevated alcohol level consistent with history of intoxication and abuse. The patient stated I do not care what you do with me. I have never quit drinking for more than 60 days at a time. And I have nothing to live for. Based on his intoxication history of abuse and the statement I felt he would benefit from talking to psychiatry and potentially trying to go through rehab 1 more time. Secondary to this I did try to admit the patient. However the patient is adamant that he does not want to stay in the hospital so we did contact family. Family states that as the patient is unwilling to stay in the hospital to discuss recurrent rehab and that her workup today has not show any signs of trauma that they will take him home and see if they can get him to a facility as an outpatient. History & Record Review Discussion w/independent historian: EMS personnel and Patient Lab Data Attestation: I reviewed the patient's lab results. Labs: Laboratory Results - last 24 hr 05/02/24 05/02/24 23:05 23:26 WBC 7.9 RBC 4.00 L Hgb 12.0 L Hct 34.9 L MCV 87.3 MCH 30.0 MCHC 34.4 RDW Std Deviation 45.0 H RDW Coeff of Heidi 14.0 Plt Count 185 MPV 8.6 Immature Gran % (Auto) 0.900 Neut % (Auto) 52.9 Lymph % (Auto) 36.9 [place] % (Auto) 6.1 Eos % (Auto) 2.6 Baso % (Auto) 0.6 Absolute Neuts (auto) 4.2 Absolute Lymphs (auto) 2.93 Nucleated RBC % 0 Sodium 132 L Potassium 3.3 L Chloride 100 Carbon Dioxide 16.0 L Anion Gap 16 H BUN 12 Creatinine 0.95 Estim Creat Clear Calc 81.11 Est GFR (MDRD) Af Amer 103 Est GFR (MDRD) Non-Af 85 BUN/Creatinine Ratio 12.7 Glucose 88 Calcium 8.7 Total Bilirubin 0.30 Direct Bilirubin 0.14 AST 29 ALT 29 Alkaline Phosphatase 49 Total Protein 7.4 Albumin 3.8 Globulin 3.6 Urine Opiates Screen NEGATIVE Urine Methadone Screen NEGATIVE Ur Barbiturates Screen POSITIVE H Ur Phencyclidine Scrn NEGATIVE Ur Amphetamines Screen NEGATIVE MDMA (Ecstasy) Screen NEGATIVE U Benzodiazepines Scrn NEGATIVE Urine Cocaine Screen NEGATIVE U Cannabinoids Screen POSITIVE H Ur Drug Screen Comment Ethyl Alcohol 347.0 H* Radiography Diagnostic Testing: Clinical Impression(s) from Imaging Studies Brain CT 05/02/24 23:20 IMPRESSION: No CT evidence of acute intracranial hemorrhage or injury. 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 Electronically Signed: Beto Urena MD at 0:15 EDT , Cervical Spine CT 05/02/24 23:20 IMPRESSION: No evidence of acute cervical spinal fracture. Spondylosis as above. Electronically Signed: Beto Urena MD at 0:18 EDT , Pelvis X-Ray 05/02/24 23:20 IMPRESSION: No visible fracture. Electronically Signed: Beto Urena MD at 0:10 EDT , Discharge Plan Triage Chief Complaint: ETOH Intox ED Provider: Daniel Knapp Dx/Rx/DC Orders Clinical Impression: Alcohol intoxication, Alcohol abuse, Depression, Accidental fall, Hypertension Instructions: Alcohol and Older Adults, Counseling for Depression Prescriptions: No Action ondansetron 4 mg tablet,disintegrating 4 mg PO Q8H alendronate [Fosamax] 70 mg tablet 70 mg PO MO metformin 500 mg tablet 500 mg PO BID Qty: 6 0RF pravastatin 40 mg tablet 40 mg PO DAILY Qty: 3 0RF tizanidine 4 mg tablet 4 mg PO Q6H Qty: 12 0RF levothyroxine [Synthroid] 75 mcg tablet 75 mcg PO DAILY Qty: 3 0RF pantoprazole 40 mg tablet,delayed release (DR/EC) 40 mg PO DAILY Qty: 3 0RF nitroglycerin [Nitrostat] 0.4 mg tablet, sublingual 0.4 mg sublingual Q5M PRN (Reason: chest pain) Qty: 3 0RF Rx Instructions: do not exceed 3 doses per episode furosemide 20 mg tablet 20 mg PO DAILY Qty: 3 0RF mirtazapine 15 mg tablet 15 mg PO QHS Qty: 3 0RF losartan 100 mg tablet 100 mg PO DAILY Qty: 3 0RF loratadine 10 mg tablet 10 mg PO DAILY Qty: 3 0RF hydroxyzine pamoate 25 mg capsule 50 mg PO BID Qty: 6 0RF albuterol sulfate 90 mcg/actuation HFA aerosol inhaler 2 puff inhalation Q6H PRN PRN (Reason: shortness of breath or wheezing) famotidine 20 mg tablet 20 mg PO QHS PRN PRN (Reason: GERD) potassium chloride 10 mEq tablet extended release 10 meq PO DAILY sertraline 50 mg tablet 50 mg PO DAILY olmesartan 40 mg tablet 40 mg PO DAILY Primary Care Provider: Sudarshan Llanos Referrals: Sudarshan Llanos MD [Primary Care Provider] - Print Language: Occitan Disposition Disposition: Home, Self Care Discharge Date/Time: 05/03/24 02:18
[2024-05-03 02:03] VITALS: BP 165/87; PULSE 66; RESP 18; TEMP 36.9; O2SAT 97
--- NOTE | 2024-05-03 02:05 | ED.RN ---
PATIENT GIVEN D/C INSTRUCTIONS AFTER REQUESTING TO GO HOME AND REFUSING TO BE ADMITTED. I INFORMED THE PATIENT THAT I WOULD SPEAK W/ THE DOCTOR. IN THE MEANTIME THE PATIENT ASKED RN Serene SIMPSON TO GO HOME. TRANSPORTATION WAS ESTABLISHED AND IS IN ROUTE. PATIENT GIVEN D/C INSTRUCTIONS. PATIENT CAME DRESSED IN UNDERWEAR AND T-SHIRT. HE WAS GIVEN HOSPITAL PANTS TO WEAR HOME.
== END 2024-05-03 02:18 | disposition home or self-care (01) ==
LOC: ED 05-03 01:08 → MS3 05-03 01:56
PROVIDERS: Emergency Provider Emergency Medicine; PCP Internal Medicine; Visit Provider Emergency Medicine
DX: F10.129 Alcohol abuse with intoxication, unspecified (principal); E11.22 Type 2 diabetes mellitus with diabetic chronic kidney disease; E11.40 Type 2 diabetes mellitus with diabetic neuropathy, unspecified; N18.30 Chronic kidney disease, stage 3 unspecified; Y90.8 Blood alcohol level of 240 mg/100 ml or more; I12.9 Hypertensive chronic kidney disease with stage 1 through stage 4 chronic kidney disease, or unspecified chronic kidney disease; F32.A Depression, unspecified; E78.5 Hyperlipidemia, unspecified; R29.6 Repeated falls; Z63.4 Disappearance and death of family member; Z63.5 Disruption of family by separation and divorce; Z79.84 Long term (current) use of oral hypoglycemic drugs; Z79.899 Other long term (current) drug therapy
CPT/HCPCS: 70450; 72125; 72170; 80048; 80076; 80307; 82077; 85025; 99285; A4216

== ENCOUNTER 2024-05-21 19:49 | Inpatient (IN) | payer MEDICARE, MEDICAID, SELFPAY ==
[2024-05-21 19:50] VITALS: BP 126/55; PULSE 86; RESP 16; TEMP 36.6; O2SAT 98; BMI 23.7
--- NOTE | 2024-05-21 20:14 | CT_ITS ---
STUDY: CT CERVICAL SPINE WITHOUT CONTRAST REASON FOR EXAM: Male, 64 years old. fall RADIATION DOSAGE (If Supplied By Facility): CTDIvol = ( 19.89 ) mGy, DLP = ( 420.91 ) mGycm TECHNIQUE: High resolution transaxial imaging was performed without contrast material. Sagittal and coronal images were reconstructed. Individualized dose optimization techniques were used for this CT. COMPARISON: None FINDINGS: Normal craniovertebral junction. Normal anterior atlantoaxial articulation. Normal odontoid process. Normal cervical lordosis. Normal vertebral bodies and posterior osseous elements. C2-3: Normal endplates. Normal disc height and morphology. Normal central canal and intervertebral neuroforamina. C3-4: Normal endplates. Normal disc height with mild posterior annular bulge. Mild spurring protruding to the central canal. Uncovertebral spurring narrowing the intervertebral neuroforamina, right more than left. C4-5: Normal endplates. Normal disc height and morphology. Normal central canal. Uncovertebral spurring slightly narrowing the right intervertebral neural foramen. C5-6: Spurring at the endplates. Slightly narrowed disc height. There is a prominent left paramedian disc herniation with slight mass effect upon the cord Endplate spurring protruding to the central canal. Uncovertebral spurring narrowing the intervertebral neuroforamina, right more than left. C6-7: Normal endplates. Normal disc height and morphology. Normal central canal and intervertebral neuroforamina. C7-T1: Normal endplates. Normal disc height and morphology. Normal central canal and intervertebral neuroforamina. Normal visualized soft tissue structures. CT/Spine Cervical without Contras IMPRESSION: Degenerative vertebral changes of the cervical spine. Left paramedian disc herniation at C5-6. Electronically Signed: Mundo Mackenzie DO at 22:12 EDT Reading Location ID and State: [facility] / [place] Tel [phone], Service support ,
--- NOTE | 2024-05-21 20:14 | CT_ITS ---
STUDY: CT BRAIN WITHOUT CONTRAST REASON FOR EXAM: Male, 64 years old. fall RADIATION DOSAGE (If Supplied By Facility): CTDIvol = ( 44.99 ) mGy, DLP = ( 829.85 ) mGycm TECHNIQUE: Transaxial CT imaging of the brain was performed without administration of intravenous contrast material. Individualized dose optimization techniques were used for this CT. COMPARISON: No relevant priors. FINDINGS: Normal soft tissue structures. Normal calvarium. Normal size ventricles and extra-axial spaces for the patient''s age. Normal white matter tracts of the cerebral hemispheres. Normal basal ganglia and thalami. Normal brainstem. Normal cerebellum. There is no intracranial hemorrhage. There are no findings of an acute ischemic infarction. Normal visualized paranasal sinuses. CT/Brain/Head without Contrast IMPRESSION: Normal unenhanced CT scan of the brain. Electronically Signed: Mundo Mackenzie DO at 21:57 EDT ,
--- NOTE | 2024-05-21 20:15 | EDS_ITS ---
HPI History of Present Illness Chief Complaint: Substance Abuse Detail of Chief Complaint: Alcohol abuse and fall with head injury Informant: patient Narrative Narrative: Patient presents to the emergency department via EMS after he had fallen on his kitchen floor. Patient states that he was getting ready go to bed when he fell on the kitchen tile floor. Patient states he been drinking heavily since 6 AM and had about 24 beers. Patient has history of alcohol abuse. He complains of injury to his head and pain in his neck. He denies chest pain or abdomen pain. Denies illicit drug use. Patient wants detox from alcohol. [facility] Medical History Alcohol dependence Alcohol abuse Diabetes Rheumatoid arthritis Osteoporosis Kidney disease Pancreatitis Hepatitis BiPAP (biphasic positive airway pressure) dependence CPAP (continuous positive airway pressure) dependence Smoker COPD (chronic obstructive pulmonary disease) Migraines Seizures Diabetic neuropathy Muscle weakness Personal history of colonic polyps Deficiency of other specified B group vitamins Hyperkalemia Unilateral inguinal hernia PTSD (post-traumatic stress disorder) Abdominal pain Renal stone Slow transit constipation Dysphagia Thrombocytopenia Disorder of teeth and supporting structures Diverticulosis SHAYLA (obstructive sleep apnea) Enlarged prostate without urinary obstruction Insomnia Bilateral foot pain GERD (gastroesophageal reflux disease) Elevated LFTs Gait abnormality Knee pain Chronic pain Anxiety Asthma Glaucoma Localized edema Gout Biotin-dependent carboxylase deficiency, unspecified 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 Lumbago with sciatica HLD (hyperlipidemia) HTN (hypertension) Chronic hepatitis C Alcohol use disorder Diarrhea Nausea and vomiting Anemia Type 2 diabetes mellitus Depression Adrenogenital disorder, unspecified Chronic kidney disease, stage 3 Liver cirrhosis Emphysema lung History of syncope Gallbladder sludge Home Medications ?Medication ?Instructions ?Recorded ?Last Taken ?Type ondansetron 4 mg disintegrating 4 mg PO Q8H 11/11/22 04/02/24 History tablet hydroxyzine pamoate 25 mg capsule 50 mg (2 x 25 mg) PO BID #6 caps 04/08/24 04/02/24 Rx levothyroxine 75 mcg tablet 75 mcg PO DAILY #3 tabs 04/08/24 Unknown Rx (Synthroid) loratadine 10 mg tablet 10 mg PO DAILY #3 tabs 04/08/24 Unknown Rx losartan 100 mg tablet 100 mg PO DAILY #3 tabs 04/08/24 Unknown Rx metformin 500 mg tablet 500 mg PO BID #6 tabs 04/08/24 Unknown Rx mirtazapine 15 mg tablet 15 mg PO QHS #3 tabs 04/08/24 Unknown Rx nitroglycerin 0.4 mg sublingual 0.4 mg sublingual Q5M PRN chest 04/08/24 Unknown Rx tablet (Nitrostat) pain #3 tabs pantoprazole 40 mg tablet,delayed 40 mg PO DAILY #3 tabs 04/08/24 Unknown Rx release pravastatin 40 mg tablet 40 mg PO DAILY #3 tabs 04/08/24 Unknown Rx tizanidine 4 mg tablet 4 mg PO Q6H #12 tabs 04/08/24 Unknown Rx albuterol sulfate 90 mcg/actuation 2 puff inhalation Q6H PRN PRN 05/02/24 Unknown History aerosol inhaler shortness of breath or wheezing famotidine 20 mg tablet 20 mg PO QHS PRN PRN GERD 05/03/24 Unknown History olmesartan 40 mg tablet 40 mg PO DAILY 05/03/24 Unknown History potassium chloride 10 mEq 10 meq PO DAILY 05/03/24 Unknown History tablet,extended release sertraline 50 mg tablet 50 mg PO DAILY 05/03/24 Unknown History Allergy/AdvReac Type Severity Reaction Status Date / Time allopurinol Allergy Intermediate Other Verified 05/21/24 19:55 codeine Allergy Intermediate Other Verified 05/21/24 19:55 Penicillins Allergy Intermediate Other Verified 05/21/24 19:55 Family History Father Prostate cancer History of quadruple bypass Myocardial infarction Surgical History History of cholecystectomy H/O oral surgery Previous back surgery Social History Smoking Status: Never smoker alcohol intake: current alcohol intake frequency: 3 or more drinks per day Alcohol type: beer details: Averages 18 beers per day ROS ROS ED Review of Systems ROS Unobtainable: other Constitutional Constitutional ED: Reports lethargy; Denies chills, fever(s), sweats or weight loss Eyes Eyes: Denies blurry vision, change in vision or diplopia ENT ENT ED: Denies rhinorrhea or sore throat Cardiovascular Cardiovascular: Denies chest pain, orthopnea or racing heartbeat Respiratory/Chest Respiratory/Chest: Denies cough, dyspnea, dyspnea on exertion, orthopnea or sputum Gastrointestinal Gastrointestinal: Denies abdominal pain, diarrhea, nausea or vomiting Genitourinary Genitourinary ED: Denies dysuria, hematuria or urinary frequency Musculoskeletal Musculoskeletal: Reports neck pain; Denies arthralgias, back pain or myalgias Integumentary Denies abscess, Abrasions or rash Neurologic Neurologic: Reports headache(s); Denies weakness Psychiatric Psychiatric: Denies anxiety, depression or suicidal thoughts Endocrine Endocrinology: Denies polydipsia, polyphagia or polyuria Hematologic/Lymphatic Hematologic/Lymphatic: Denies easy bleeding, easy bruising or lymphadenopathy Allergic/Immunologic Allergic/Immunologic ED: Denies mouth swelling, tongue swelling or urticaria EXAM Physical Exam Const Vital Signs: 05/21/24 19:50 05/21/24 20:49 05/21/24 21:00 Temperature 98 F Temperature Source Temporal Pulse Rate 86 77 78 Respiratory Rate 16 14 18 Blood Pressure 126/55 H 121/67 H 123/56 H Blood Pressure Mean 78 85 78 Pulse Ox 98 96 95 Oxygen Delivery Method Room Air Room Air Room Air 05/21/24 22:00 05/21/24 22:02 Temperature 98 F Temperature Source Pulse Rate 94 88 Respiratory Rate 16 18 Blood Pressure 132/76 H 132/76 H Blood Pressure Mean 94 94 Pulse Ox 99 98 Oxygen Delivery Method Room Air Positive well nourished and well developed General Appearance ED: well developed and NAD HEENT Reports TM's clear and moist mucous membranes HEENT Narrative: Patient with contusion to left frontal scalp. No bony depressions. No lacerations. normocephalic and atraumatic; Negative for trauma or tenderness Tympanic Membrane ED: Yes TM's clear Eyes PERRL and EOMs intact bilaterally General Eye ED: Negative for pale conjunctiva or scleral icterus Neck no lymphadenopathy, supple and no JVD Neck Narrative: Mild diffuse tenderness. There is no bony step-offs noted or depressions. C- collar in place. General: tenderness Chest Wall inspection of chest normal and palpation of chest normal Chest: Negative for tenderness Resp normal respiratory effort and clear to auscultation bilaterally Effort and Inspection: Negative for respiratory distress or pain with movement Auscultation: Negative for rhonchi, wheezes or diminished lung sounds Cardio regular rate, regular rhythm, S1 normal heart sound, S2 normal heart sound and no murmurs Peripheral Pulses: pulses 2+ throughout GI normal to inspection, nondistended, normoactive bowel sounds, soft to palpation, non-tender, non-distended and no masses Back/Spine no CVA tenderness and no thoracic nor lumbar tenderness Extremity Extremity Narrative: Left upper arm-patient has small superficial skin tears. No bony tenderness on exam. Normal range of motion at the shoulder and elbow as well as the wrist. Neurovascular intact distally. General Extremety ED: Negative for edema General Extremity: Negative for edema Neuro oriented x3, CN's II-XII intact bilaterally, no sensory deficits noted and gait normal Sensorium / Orientation: awake, alert, oriented to person, oriented to place and oriented to time Motor Exam: strength 5/5 throughout and strength abnormal Psych mental status grossly normal Skin no rashes or lesions noted and no wounds MDM MDM MDM Narrative Medical decision making narrative: Patient presents via EMS from home. He had a mechanical fall. Patient has been drinking heavily and his history of alcohol abuse. He was admitted to our facility in March and sent to an outpatient rehab center where they apparently put him on the sixth floor and he is having a hard time walking to even go to breakfast so he left the rehab facility. Patient started drinking again. IV line established. CT scan of the brain without contrast obtained was unremarkable. CT C-spine results pending but on my interpretation do not appreciate any obvious fractures or dislocations. CBC with differential shows white count of 3.3 with hemoglobin 11.3 and platelet count of 54. Chemistries show sodium 127 with potassium 4.1 and chloride of 92. BUN 11 and creatinine 1.23. LFTs showed a slightly elevated AST of 197 and an ALT of 84 with a normal total bilirubin of 0.9 and alkaline phosphatase of 96. Urine tox screen positive for THC. Alcohol was 294.. Will discuss case with hospitalist to evaluate patient for admission for alcohol detox. Lab Data Attestation: I reviewed the patient's lab results. Labs: Laboratory Results - last 24 hr 05/21/24 05/21/24 20:45 21:12 WBC 3.3 L RBC 3.74 L Hgb 11.3 L Hct 33.5 L MCV 89.6 MCH 30.2 MCHC 33.7 RDW Std Deviation 50.6 H RDW Coeff of Heidi 15.4 H Plt Count 54 L MPV 9.7 Immature Gran % (Auto) 0.600 Neut % (Auto) 80.4 H Lymph % (Auto) 12.0 L [place] % (Auto) 6.1 Eos % (Auto) 0.3 Baso % (Auto) 0.6 Absolute Neuts (auto) 2.6 Absolute Lymphs (auto) 0.39 L Nucleated RBC % 0 Differential Comment SEECOMMENT Platelet Estimate MOD DEC RBC Morphology N CHROM Anisocytosis RARE Macrocytosis RARE Sodium 127 L Potassium 4.1 Chloride 92 L Carbon Dioxide 17.0 L Anion Gap 18 H BUN 11 Creatinine 1.23 Estim Creat Clear Calc 62.65 Est GFR (MDRD) Af Amer 76 Est GFR (MDRD) Non-Af 63 BUN/Creatinine Ratio 8.9 L Glucose 96 Calcium 8.6 Total Bilirubin 0.90 AST 197 H ALT 84 H Alkaline Phosphatase 96 Total Protein 7.1 Albumin 3.7 Globulin 3.4 Albumin/Globulin Ratio 1.1 Urine Opiates Screen NEGATIVE Urine Methadone Screen NEGATIVE Ur Barbiturates Screen NEGATIVE Ur Phencyclidine Scrn NEGATIVE Ur Amphetamines Screen NEGATIVE MDMA (Ecstasy) Screen NEGATIVE U Benzodiazepines Scrn NEGATIVE Urine Cocaine Screen NEGATIVE U Cannabinoids Screen POSITIVE H Ur Drug Screen Comment Ethyl Alcohol 294.0 Radiography Diagnostic Testing: Clinical Impression(s) from Imaging Studies Brain CT 05/21/24 20:14 IMPRESSION: Normal unenhanced CT scan of the brain. Electronically Signed: Mundo Mackenzie DO at 21:57 EDT , Cervical Spine CT 05/21/24 20:14 IMPRESSION: Degenerative vertebral changes of the cervical spine. Left paramedian disc herniation at C5-6. Electronically Signed: Mundo Mackenzie DO at 22:12 EDT , Discharge Plan Dx/Rx/DC Orders Clinical Impression: Alcohol intoxication, Fall, Closed head injury, Skin tear, Admitted to alcohol detoxification center Disposition Disposition: Acute Care [facility]
[2024-05-21] MEDS: 0.9% Normal Saline (1000mL) 1,000 ML 150 ML IV ×2 (20:45→23:55)
[2024-05-21 20:49] VITALS: BP 121/67; PULSE 77; RESP 14; O2SAT 96
[2024-05-21 20:55] LABS: Absolute Lymphocyte Count 0.39 X10^3/uL (0.83-4.51); Absolute Neutrophil Count 2.6 X10^3/uL (2.0-7.7); Basophil# 0.02 X10^3/uL; Basophil% 0.6 % (0-1); Eosinophil# 0.01 X10^3/uL; Eosinophils% 0.3 % (0-5); Hematocrit 33.5 % (40-54); Hemoglobin 11.3 g/dL (13.0-16.5); Lymphocyte # 0.39 X10^3/ul (0.83-4.51); Mean Corp Hgb Conc 33.7 g/dL (32-36); Mean Corpuscular Hgb 30.2 pg (27.0-32.0); Mean Corpuscular Volume 89.6 fL (80-94); Mean Platelet Vol. 9.7 fl (6.2-12.0); Monocyte% 6.1 % (0-10); NRBC Flagged by Analyzer 0 % (0-5); Neutrophil # 2.62 X10^3/uL (2.7-7.7); Neutrophil % 80.4 % (47-70); POSITIVE COUNT YES; POSITIVE DIFFERENTIAL YES; Platelet Count 54 K/mm3 (150-450); RBC Distribution Width CV 15.4 % (11.6-14.6); RBC Distribution Width SD 50.6 fl (35.1-43.9); Red Blood Count 3.74 M/mm3 (4.6-6.2); White Blood Count 3.3 K/mm3 (4.4-11.0)
[2024-05-21 20:56] LABS: Differential Indicated SCAN CRITERIA MET
[2024-05-21 21:00] VITALS: BP 123/56; PULSE 78; RESP 18; O2SAT 95
[2024-05-21 21:13] LABS: ALB/GLOB Ratio 1.1 RATIO (0.9-2.4); AST(SGOT) 197 U/L (15-37); Alanine Aminotransfer ALT/SGPT 84 U/L (16-61); Albumin, Serum 3.7 g/dL (3.2-5.0); Alkaline Phosphatase 96 U/L (45-117); Anion Gap 18 (5-15); BUN 11 mg/dL (7-18); BUN/Creat Ratio 8.9 RATIO (10-20); Calcium,Total 8.6 mg/dL (8.5-10.1); Chloride 92 mmol/L (98-107); Creatinine, Serum 1.23 mg/dL (0.70-1.30); EST Glomerular Filtration Rate 63 mL/min (>60); Est Glom Filt Rate - Afr Amer 76 mL/min (>60); Estimated Creatinine Clearance 62.65 ml/min; Globulin 3.4 g/dL (2.2-4.2); Glucose 96 mg/dL (74-106); Potassium 4.1 mmol/L (3.5-5.1); Protein, Total 7.1 g/dL (6.4-8.2); Sodium Level 127 mmol/L (136-145)
[2024-05-21 21:51] LABS: Amphetamine Urine VISTA NEGATIVE (<1000 ng/mL); Barbiturate Urine VISTA NEGATIVE (< 200 ng/mL); Benzodiazepine Urine VISTA NEGATIVE (< 200 ng/mL); Cocaine Urine VISTA NEGATIVE (< 300 ng/mL); Ecstacy Urine VISTA NEGATIVE (< 500 ng/mL); Methadone Urine VISTA NEGATIVE (< 300 ng/mL); PCP Urine VISTA NEGATIVE (< 25 ng/mL); THC Urine VISTA POSITIVE (< 50 ng/mL); Vista UDS pH Range 6
[2024-05-21 22:00] VITALS: BP 132/76; PULSE 94; RESP 16; O2SAT 99
[2024-05-21 22:01] LABS: Differential Comment SEECOMMENT
[2024-05-21 22:02] VITALS: BP 132/76; PULSE 88; RESP 18; TEMP 36.6; O2SAT 98
[2024-05-21 22:02] LABS: Anisocytosis RARE; Macrocytosis RARE; Platelet Estimate MOD DEC (ADEQ); Red Cell Morphology N CHROM NORMAL (NORM C&C)
--- NOTE | 2024-05-21 23:06 | HP.PCM.HOS_ITS ---
HPI - General General Date of Admission: 05/21/24 Date of Service: 05/21/24 Chief Complaint: fall HPI Narrative WOODY RECINOS, is a 64 M who presents after a fall. Patient was intoxicated and fell hitting his head. He underwent a workup including a CT of the cervical spine that showed degenerative changes and left paramedian disc herniation of C5-C6, negative head CT. Patient was admitted last month for alcohol withdrawal and went to acute alcohol rehab. Patient was on the 6 floor did not have an elevator and was too weak to be able to go up that so that was in [facility] presented to [facility] [place] who discharged him to home. Patient has continued to drink since being at home. After his fall he is now requesting treatment for alcohol withdrawal. [facility] Medical History Alcohol dependence Alcohol abuse Diabetes Rheumatoid arthritis Osteoporosis Kidney disease Pancreatitis Hepatitis BiPAP (biphasic positive airway pressure) dependence CPAP (continuous positive airway pressure) dependence Smoker COPD (chronic obstructive pulmonary disease) Migraines Seizures Diabetic neuropathy Muscle weakness Personal history of colonic polyps Deficiency of other specified B group vitamins Hyperkalemia Unilateral inguinal hernia PTSD (post-traumatic stress disorder) Abdominal pain Renal stone Slow transit constipation Dysphagia Thrombocytopenia Disorder of teeth and supporting structures Diverticulosis SHAYLA (obstructive sleep apnea) Enlarged prostate without urinary obstruction Insomnia Bilateral foot pain GERD (gastroesophageal reflux disease) Elevated LFTs Gait abnormality Knee pain Chronic pain Anxiety Asthma Glaucoma Localized edema Gout Biotin-dependent carboxylase deficiency, unspecified 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 Lumbago with sciatica HLD (hyperlipidemia) HTN (hypertension) Chronic hepatitis C Alcohol use disorder Diarrhea Nausea and vomiting Anemia Type 2 diabetes mellitus Depression Adrenogenital disorder, unspecified Chronic kidney disease, stage 3 Liver cirrhosis Emphysema lung History of syncope Gallbladder sludge Home Medications ?Medication ?Instructions ?Recorded ?Last Taken ?Type ondansetron 4 mg disintegrating 4 mg PO Q8H 11/11/22 04/02/24 History tablet hydroxyzine pamoate 25 mg capsule 50 mg (2 x 25 mg) PO BID #6 caps 04/08/24 04/02/24 Rx levothyroxine 75 mcg tablet 75 mcg PO DAILY #3 tabs 04/08/24 Unknown Rx (Synthroid) loratadine 10 mg tablet 10 mg PO DAILY #3 tabs 04/08/24 Unknown Rx losartan 100 mg tablet 100 mg PO DAILY #3 tabs 04/08/24 Unknown Rx metformin 500 mg tablet 500 mg PO BID #6 tabs 04/08/24 Unknown Rx mirtazapine 15 mg tablet 15 mg PO QHS #3 tabs 04/08/24 Unknown Rx nitroglycerin 0.4 mg sublingual 0.4 mg sublingual Q5M PRN chest 04/08/24 Unknown Rx tablet (Nitrostat) pain #3 tabs pantoprazole 40 mg tablet,delayed 40 mg PO DAILY #3 tabs 04/08/24 Unknown Rx release pravastatin 40 mg tablet 40 mg PO DAILY #3 tabs 04/08/24 Unknown Rx tizanidine 4 mg tablet 4 mg PO Q6H #12 tabs 04/08/24 Unknown Rx albuterol sulfate 90 mcg/actuation 2 puff inhalation Q6H PRN PRN 05/02/24 Unknown History aerosol inhaler shortness of breath or wheezing famotidine 20 mg tablet 20 mg PO QHS PRN PRN GERD 05/03/24 Unknown History olmesartan 40 mg tablet 40 mg PO DAILY 05/03/24 Unknown History potassium chloride 10 mEq 10 meq PO DAILY 05/03/24 Unknown History tablet,extended release sertraline 50 mg tablet 50 mg PO DAILY 05/03/24 Unknown History Allergy/AdvReac Type Severity Reaction Status Date / Time allopurinol Allergy Intermediate Other Verified 05/21/24 19:55 codeine Allergy Intermediate Other Verified 05/21/24 19:55 Penicillins Allergy Intermediate Other Verified 05/21/24 19:55 Family History Father Prostate cancer History of quadruple bypass Myocardial infarction Surgical History History of cholecystectomy H/O oral surgery Previous back surgery Social History Smoking Status: Never smoker alcohol intake: current alcohol intake frequency: 3 or more drinks per day Alcohol type: beer details: Averages 18 beers per day ROS ROS Narrative Chronically weak and uses a walker at baseline. All review of systems were negative except as mentioned above in the history of present illness and the other review of systems. Vital Signs Vital Signs Vital Signs: 05/21/24 19:50 05/21/24 20:49 05/21/24 21:00 Temperature 36.6 C Temperature Source Temporal Pulse Rate 86 77 78 Respiratory Rate 16 14 18 Blood Pressure 126/55 H 121/67 H 123/56 H Blood Pressure Mean 78 85 78 Pulse Ox 98 96 95 Oxygen Delivery Method Room Air Room Air Room Air 05/21/24 22:00 05/21/24 22:02 Temperature 36.6 C Temperature Source Pulse Rate 94 88 Respiratory Rate 16 18 Blood Pressure 132/76 H 132/76 H Blood Pressure Mean 94 94 Pulse Ox 99 98 Oxygen Delivery Method Room Air Weight Weight: 75 kg Body Mass Index (BMI) 23.7 Physical Exam Const alert and no apparent distress Constitutional Narrative: Appears older than stated age. HEENT normocephalic and head/scalp atraumatic Resp normal respiratory effort, no retractions, no use of accessory muscles and clear to auscultation bilaterally Cardio regular rate, regular rhythm, S1 normal heart sound and S2 normal heart sound GI normal to inspection, nondistended, normoactive bowel sounds, soft to palpation, non-tender and non-distended Extremity normal to inspection and full ROM Neuro Sensorium / Orientation: awake and alert Psych affect normal Results Lab / Micro Data Attestation: I reviewed the patient's lab results. 05/21/24 20:45 05/21/24 20:45 Labs: Laboratory Results - last 24 hr 05/21/24 20:45: WBC 3.3 L, RBC 3.74 L, Hgb 11.3 L, Hct 33.5 L, MCV 89.6, MCH 30.2, MCHC 33.7, RDW Std Deviation 50.6 H, RDW Coeff of Heidi 15.4 H, Plt Count 54 L, MPV 9.7, Immature Gran % (Auto) 0.600, Neut % (Auto) 80.4 H, Lymph % (Auto) 12.0 L, [place] % (Auto) 6.1, Eos % (Auto) 0.3, Baso % (Auto) 0.6, Absolute Neuts (auto) 2.6, Absolute Lymphs (auto) 0.39 L, Nucleated RBC % 0, Differential Comment SEECOMMENT, Platelet Estimate MOD DEC, RBC Morphology N CHROM, Anisocytosis RARE, Macrocytosis RARE, Sodium 127 L, Potassium 4.1, Chloride 92 L , Carbon Dioxide 17.0 L, Anion Gap 18 H, BUN 11, Creatinine 1.23, Estim Creat Clear Calc 62.65, Est GFR (MDRD) Af Amer 76, Est GFR (MDRD) Non-Af 63, B UN/Creatinine Ratio 8.9 L, Glucose 96, Calcium 8.6, Total Bilirubin 0.90, AST 197 H, ALT 84 H, Alkaline Phosphatase 96, Total Protein 7.1, Albumin 3.7, Globulin 3.4, Albumin/Globulin Ratio 1.1, Ethyl Alcohol 294.0 05/21/24 21:12: Urine Opiates Screen NEGATIVE, Urine Methadone Screen NEGATIVE, Ur Barbiturates Screen NEGATIVE, Ur Phencyclidine Scrn NEGATIVE, Ur Amphetamines Screen NEGATIVE, MDMA (Ecstasy) Screen NEGATIVE, U Benzodiazepines Scrn NEGATIVE, Urine Cocaine Screen NEGATIVE, U Cannabinoids Screen POSITIVE H, Ur Drug Screen Comment Imaging Radiology Impression Brain CT 05/21/24 20:14 IMPRESSION: Normal unenhanced CT scan of the brain. Electronically Signed: Mundo Mackenzie DO at 21:57 EDT , Cervical Spine CT 05/21/24 20:14 IMPRESSION: Degenerative vertebral changes of the cervical spine. Left paramedian disc herniation at C5-6. Electronically Signed: Mundo Mackenzie DO at 22:12 EDT , Assessment & Plan Assessment/Plan (1) Alcohol intoxication: PLAN: With impending alcohol withdrawal. Patient alcohol level 294. Patient drinking 24 beers per day. Was admitted here earlier for alcohol withdrawal and went to rehab but was went there for 1 day because he could not go up the stairs and did not have an elevator available. Patient will be on phenobarbital drip. Thiamine and folate. Addiction medicine to see and facilitate outpatient programs. (2) Fall: PLAN: Certainly due to his alcohol intoxication. The patient also has a likely poor performance status PT OT evaluate and treat (3) Transaminitis: PLAN: Secondary to alcohol. Patient states that 95% of his liver has been compromised. Not sure how that number came to be but he does not appear to be working on 5% of the liver capacity. Will monitor (4) Pancytopenia: PLAN: Likely due to splenomegaly Will monitor. PLAN: Plan Chronic conditions * 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: Continue with levothyroxine * Hyperlipidemia: Hold statin given transaminitis VTE prophylaxis: Low risk. CODE STATUS: Addressed with the patient. Patient wishes to be full code.
[2024-05-21 23:24] VITALS: BMI 22.6
[2024-05-21 23:34] VITALS: BP 121/70; PULSE 85; RESP 18; TEMP 36.5; O2SAT 99
--- NOTE | 2024-05-21 23:48 | NURSING ---
This nurse spoke with patients PRADEEP, which is his brother in law, on the phone. Pts POA stated they would like patient to go to a exterminator helper detox. Stated he's been to 30 day treatment facilities and it just is not long enough. This nurse stated she would pass information along to patients nurse.
[2024-05-22 00:19] LABS: Bedside Glucose 69 mg/dL (74-106)
[2024-05-22] MEDS: Phenobarbital 32.4 MG Tablet PO ×7 (00:22→23:42)
[2024-05-22 00:34] LABS: Bedside Glucose 98 mg/dL (74-106)
[2024-05-22 03:33] VITALS: BP 115/56; PULSE 95; RESP 18; TEMP 37.1; O2SAT 100
[2024-05-22] MEDS: hydrOXYzine PAM 25 MG Capsule 50 MG PO ×3 (03:38→20:09)
[2024-05-22] MEDS: Dicyclomine 10 MG Capsule 20 MG PO ×2 (03:38→11:45)
[2024-05-22] MEDS: 0.9% Normal Saline (1000mL) 1,000 ML 150 ML IV (06:05)
[2024-05-22] MEDS: Ondansetron 8 MG Tablet PO (06:05)
[2024-05-22] MEDS: Levothyroxine 75 MCG Tablet PO (06:05)
[2024-05-22 06:55] LABS: Absolute Lymphocyte Count 0.68 X10^3/uL (0.83-4.51); Absolute Neutrophil Count 1.7 X10^3/uL (2.0-7.7); Basophil# 0.02 X10^3/uL; Basophil% 0.8 % (0-1); Eosinophil# 0.03 X10^3/uL; Eosinophils% 1.1 % (0-5); Hematocrit 29.2 % (40-54); Hemoglobin 9.9 g/dL (13.0-16.5); Lymphocyte # 0.68 X10^3/ul (0.83-4.51); Lymphocyte % 25.9 % (19-41); Mean Corp Hgb Conc 33.9 g/dL (32-36); Mean Corpuscular Hgb 30.7 pg (27.0-32.0); Mean Corpuscular Volume 90.4 fL (80-94); Mean Platelet Vol. 9.7 fl (6.2-12.0); Monocyte# 0.21 X10^3/uL; NRBC Flagged by Analyzer 0 % (0-5); Neutrophil # 1.69 X10^3/uL (2.7-7.7); Neutrophil % 64.2 % (47-70); POSITIVE COUNT YES; RBC Distribution Width CV 15.5 % (11.6-14.6); RBC Distribution Width SD 51.6 fl (35.1-43.9); Red Blood Count 3.23 M/mm3 (4.6-6.2); White Blood Count 2.6 K/mm3 (4.4-11.0)
[2024-05-22 07:00] LABS: Differential Indicated SCAN CRITERIA MET; Platelet Count 44 K/mm3 (150-450)
[2024-05-22 07:11] LABS: Bedside Glucose 52 mg/dL (74-106)
[2024-05-22 07:11] LABS: Bedside Glucose 92 mg/dL (74-106)
[2024-05-22 07:12] LABS: AST(SGOT) 168 U/L (15-37); Alanine Aminotransfer ALT/SGPT 76 U/L (16-61); Albumin, Serum 3.2 g/dL (3.2-5.0); Alkaline Phosphatase 87 U/L (45-117); Anion Gap 14 (5-15); BUN 9 mg/dL (7-18); BUN/Creat Ratio 8.7 RATIO (10-20); Calcium,Total 7.9 mg/dL (8.5-10.1); Chloride 101 mmol/L (98-107); Creatinine, Serum 1.04 mg/dL (0.70-1.30); EST Glomerular Filtration Rate 76 mL/min (>60); Est Glom Filt Rate - Afr Amer 92 mL/min (>60); Estimated Creatinine Clearance 72.47 ml/min; Globulin 3.1 g/dL (2.2-4.2); Glucose 91 mg/dL (74-106); Protein, Total 6.3 g/dL (6.4-8.2); Sodium Level 133 mmol/L (136-145)
[2024-05-22 08:07] VITALS: BP 125/74; PULSE 96; RESP 18; TEMP 36.6; O2SAT 99
[2024-05-22] MEDS: Pantoprazole Sodium 40 MG Tablet PO (08:09)
[2024-05-22] MEDS: Folic Acid 1 MG Tablet PO (08:09)
[2024-05-22] MEDS: Thiamine Hydrochloride 100 MG Tablet PO (08:09)
[2024-05-22] MEDS: Sertraline 50 MG Tablet PO (08:09)
[2024-05-22] MEDS: Loratadine 10 MG Tablet PO (08:09)
[2024-05-22 08:34] LABS: Magnesium 1.4 mg/dL (1.6-2.6); Phosphorus 1.8 mg/dL (2.5-4.9)
[2024-05-22 11:40] VITALS: BP 138/79; PULSE 90; RESP 18; TEMP 36.8; O2SAT 100
[2024-05-22] MEDS: Losartan Potassium 100 MG Tablet PO (11:44)
[2024-05-22] MEDS: Acetaminophen 500 MG Tablet PO (11:45)
--- NOTE | 2024-05-22 11:46 | PCM.PN.HOSP ---
Reason for Visit Reason for Visit: Diagnoses Other pancytopenia (05/21/24) Alcohol use, unspecified with intoxication, unspecified (05/21/24) Elevation of levels of liver transaminase levels (05/21/24) Unspecified fall, initial encounter (05/21/24) Subjective Subjective Patient admitted yesterday evening for acute alcohol intoxication with pending withdrawal. Saw patient bedside this morning. Patient was fatigued appearing and did have a noticeable slight tremor in his bilateral hands. Heart rate was in the 90s. Patient stated that he felt okay this morning, was having some withdrawal symptoms including tremor and mild nausea. He had been given 3 doses of phenobarbital by the time of my encounter, stated this was somewhat helpful for his symptoms but did not cause any somnolence for him and did not fully control his symptoms. He notably denied any hallucinations or sensory changes. No other new concerns at this time. Objective Data Objective Data Vital Signs: Vital Signs Temp Pulse Resp BP Pulse Ox O2 Del Method 98.3 F 90 18 138/79 H 100 Room Air 05/22/24 11:40 05/22/24 11:40 05/22/24 11:40 05/22/24 11:40 05/22/24 11:40 05/22/24 11:40 Oxygen Delivery Method Room Air Weight: 71.4 kg Body Mass Index (BMI) 22.6 Intake & Output: Intake and Output for Last 24 Hours 05/20/24 05/21/24 05/22/24 23:59 23:59 23:59 Intake Total 475 / 475 1325 / 1325 Balance 475 / 475 1325 / 1325 Lab / Micro Data 05/22/24 06:38 05/22/24 06:38 Labs: Laboratory Results - last 24 hr 05/21/24 20:45: WBC 3.3 L, RBC 3.74 L, Hgb 11.3 L, Hct 33.5 L, MCV 89.6, MCH 30.2, MCHC 33.7, RDW Std Deviation 50.6 H, RDW Coeff of Heidi 15.4 H, Plt Count 54 L, MPV 9.7, Immature Gran % (Auto) 0.600, Neut % (Auto) 80.4 H, Lymph % (Auto) 12.0 L, Collier % (Auto) 6.1, Eos % (Auto) 0.3, Baso % (Auto) 0.6, Absolute Neuts (auto) 2.6, Absolute Lymphs (auto) 0.39 L, Nucleated RBC % 0, Differential Comment SEECOMMENT, Platelet Estimate MOD DEC, RBC Morphology N CHROM, Anisocytosis RARE, Macrocytosis RARE, Sodium 127 L, Potassium 4.1, Chloride 92 L, Carbon Dioxide 17.0 L, Anion Gap 18 H, BUN 11, Creatinine 1.23, Estim Creat Clear Calc 62.65, Est GFR (MDRD) Af Amer 76, Est GFR (MDRD) Non-Af 63, BUN/Creatinine Ratio 8.9 L, Glucose 96, Calcium 8.6, Total Bilirubin 0.90, AST 197 H, ALT 84 H, Alkaline Phosphatase 96, Total Protein 7.1, Albumin 3.7, Globulin 3.4, Albumin/Globulin Ratio 1.1, Ethyl Alcohol 294.0 05/21/24 21:12: Urine Opiates Screen NEGATIVE, Urine Methadone Screen NEGATIVE, Ur Barbiturates Screen NEGATIVE, Ur Phencyclidine Scrn NEGATIVE, Ur Amphetamines Screen NEGATIVE, MDMA (Ecstasy) Screen NEGATIVE, U Benzodiazepines Scrn NEGATIVE, Urine Cocaine Screen NEGATIVE, U Cannabinoids Screen POSITIVE H, Ur Drug Screen Comment 05/21/24 23:47: POC Glucose 69 L 05/22/24 00:16: POC Glucose 98 05/22/24 05:51: POC Glucose 52 L 05/22/24 06:28: POC Glucose 92 05/22/24 06:38: WBC 2.6 L, RBC 3.23 L, Hgb 9.9 L, Hct 29.2 L, MCV 90.4, MCH 30.7, MCHC 33.9, RDW Std Deviation 51.6 H, RDW Coeff of Heidi 15.5 H, Plt Count 44 L*, MPV 9.7, Immature Gran % (Auto) 0.000, Neut % (Auto) 64.2, Lymph % (Auto) 25.9, Collier % (Auto) 8.0, Eos % (Auto) 1.1, Baso % (Auto) 0.8, Absolute Neuts (auto) 1.7 L, Absolute Lymphs (auto) 0.68 L, Nucleated RBC % 0, Diff Path Review February, Sodium 133 L, Potassium 4.0, Chloride 101, Carbon Dioxide 18.0 L, Anion Gap 14, BUN 9, Creatinine 1.04, Estim Creat Clear Calc 72.47, Est GFR (MDRD) Af Amer 92, Est GFR (MDRD) Non-Af 76, BUN/Creatinine Ratio 8.7 L, Glucose 91, Calcium 7.9 L, Phosphorus 1.8 L, Magnesium 1.4 L, Total Bilirubin 1.00, AST 168 H, ALT 76 H, Alkaline Phosphatase 87, Total Protein 6.3 L, Albumin 3.2, Globulin 3.1, Albumin/Globulin Ratio 1.0 Radiography Diagnostic Testing: Radiology Impression Brain CT 05/21/24 20:14 IMPRESSION: Normal unenhanced CT scan of the brain. Electronically Signed: Mundo Mackenzie DO at 21:57 EDT , Cervical Spine CT 05/21/24 20:14 IMPRESSION: Degenerative vertebral changes of the cervical spine. Left paramedian disc herniation at C5-6. Electronically Signed: Mundo Mackenzie DO at 22:12 EDT , Physical Exam Const alert, oriented x3, no apparent distress and average body habitus Constitutional Narrative: Middle-aged male, appears older than stated age, chronically ill-appearing, fatigued, mild bilateral upper extremity tremor noted, otherwise laying comfortably in bed, conversing normally, in no acute distress. General Appearance: cooperative and comfortable HEENT normocephalic, head/scalp atraumatic, hearing grossly normal bilaterally, nasal mucous membranes and turbinates normal and moist oral mucous membranes Eyes PERRL, EOMs intact bilaterally and conjunctivae normal Neck full ROM Chest inspection of chest normal Resp normal respiratory effort, normal air movement, no use of accessory muscles and clear to auscultation bilaterally Cardio regular rate, regular rhythm, no murmurs and peripheral pulses 2+ throughout GI normal to inspection, nondistended, normoactive bowel sounds, soft to palpation, non-tender and non-distended Back/Spine normal ROM Extremity normal to inspection, full ROM and no pedal edema Skin no rashes or lesions noted Neuro no focal motor deficits and no sensory deficits noted Speech: speech normal Psych mental status grossly normal Mood & Affect: anxious Assessment & Plan Assessment/Plan (1) Alcohol abuse: (2) Desire for detoxification: (3) Weakness: (4) Pancytopenia: (5) Transaminitis: PLAN: Plan Patient is a 64-year-old male who presented [facility] ED on 05/21/2024 with weakness and requesting alcohol detoxification. 1. Alcohol abuse with withdrawal and desire for detoxification ? Addiction medicine consulted. Alcohol level 274 on admit. Reported drinking around 24 beers daily. Started on phenobarbital taper with as needed medications per alcohol withdrawl order set on admission, will continue this. Symptoms not fully controlled, added Ativan as needed on 05/22 and will continue regular CIWA scoring. Continue folate and thiamine. Noted during recent hospitalization in March that patient follows as an outpatient in [place] and received Vivitrol there. Appreciate addiction medicine assistance. 2. Generalized weakness ? PT/OT/case management following. Patient reportedly had fall on day of admission, suspected due to acute alcohol intoxication but also some degree of general debility in setting of poor nutrition and active alcohol abuse. Decent therapy scores on hospital day 2, likely home with either home health care or outpatient therapy on discharge. 3. Alcoholic liver disease with mild transaminitis ? No formal diagnosis of cirrhosis but findings of pancytopenia with low platelets especially and physical exam findings fairly consistent with chronic liver disease. Mildly elevated LFTs likely due to mild degree of acute alcoholic hepatitis. LFTs downtrending on hospital day 2, no need to monitor further. 4. Pancytopenia ? Hemoglobin 11.3, WBC count 3.3, platelets 54 on admit. All slightly down trended on hospital day 2 after IV fluid resuscitation, platelet count 44. Presumed secondary to alcoholic liver disease with likely some degree of anemia of chronic disease. Continue to monitor CBC daily. SCDs for DVT prophylaxis. 5. Electrolyte abnormalities ? Sodium 127, magnesium 1.4, phosphorus 1.8 on admit presumed secondary to poor p.o. intake and alcohol use. Sodium 133 on hospital day 2 after IV fluid resuscitation. Monitor sodium level daily. Replete magnesium and phosphorus as needed. Chronic medical conditions: ? Hypertension: Stable. Continue home losartan. ? Type 2 diabetes mellitus: Most recent A1c 4.6%. On home metformin 500 mg twice daily. Blood sugars consistently below 100 on admission. Hold home metformin and no need for sliding scale insulin while inpatient, will plan to hold metformin on discharge as well. ? GERD: Continue home PPI. ? 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: Continue home Synthroid. ? Depression: Continue home sertraline. DVT prophylaxis: SCDs CODE STATUS: Full code, verified Expected disposition: Home, 2 to 3 days Total clinical time spent by myself addressing the patient's medical issues, reviewing all the data, and collaborating with patient's care team: 35 minutes. Charges/Coding Visit Charges Inpatient E&M: 98882 Subs Hosp L2
[2024-05-22 14:56] VITALS: BP 147/72; PULSE 88; RESP 18; O2SAT 98
[2024-05-22] MEDS: Glucerna Shake 120 ML LIQUID PO ×3 (14:59→20:09)
[2024-05-22] MEDS: Na Biphos/Potassium Phosphate PACKET 1 PACKET PO ×2 (16:16→20:09)
[2024-05-22] MEDS: Magnesium Sulfate 4gm/100mL 4 GM/100 ML IV.SOLN. IV (16:16)
[2024-05-22 16:42] LABS: Bedside Glucose 105 mg/dL (74-106)
[2024-05-22 18:50] VITALS: BP 140/71; PULSE 80; RESP 18; O2SAT 97
[2024-05-22] MEDS: Loperamide 2 MG Capsule PO (18:53)
[2024-05-22] MEDS: traZODone 100 MG Tablet PO (20:09)
[2024-05-22] MEDS: Mirtazapine 15 MG Tablet PO (20:09)
[2024-05-22 23:24] VITALS: BP 137/74; PULSE 85; RESP 16; TEMP 36.7; O2SAT 100
[2024-05-23 01:26] LABS: Bedside Glucose 139 mg/dL (74-106)
[2024-05-23 02:59] VITALS: BP 163/70; PULSE 85; RESP 18; TEMP 36.6; O2SAT 100
[2024-05-23] MEDS: Phenobarbital 32.4 MG Tablet PO ×6 (03:01→23:28)
[2024-05-23] MEDS: Gabapentin 300 MG Capsule PO ×3 (03:01→23:29)
[2024-05-23 06:42] VITALS: BP 131/84; PULSE 84; RESP 18; TEMP 36.7; O2SAT 99
[2024-05-23] MEDS: Thiamine Hydrochloride 100 MG Tablet PO (06:47)
[2024-05-23] MEDS: Folic Acid 1 MG Tablet PO (06:47)
[2024-05-23] MEDS: hydrOXYzine PAM 25 MG Capsule 50 MG PO ×3 (06:47→20:03)
[2024-05-23] MEDS: Levothyroxine 75 MCG Tablet PO (06:47)
[2024-05-23] MEDS: Na Biphos/Potassium Phosphate PACKET 1 PACKET PO ×3 (06:47→20:03)
[2024-05-23 07:01] LABS: Hematocrit 31.2 % (40-54); Hemoglobin 10.6 g/dL (13.0-16.5); Mean Corpuscular Hgb 31.3 pg (27.0-32.0); POSITIVE COUNT YES; RBC Distribution Width CV 15.6 % (11.6-14.6); RBC Distribution Width SD 52.8 fl (35.1-43.9); Red Blood Count 3.39 M/mm3 (4.6-6.2); White Blood Count 2.4 K/mm3 (4.4-11.0)
[2024-05-23 07:14] LABS: Bedside Glucose 115 mg/dL (74-106)
[2024-05-23 07:29] LABS: Platelet Count 34 K/mm3 (150-450)
[2024-05-23 07:30] LABS: Scan Indicated on CBC? Y/N YES- FLAGS NOTED
[2024-05-23 07:35] LABS: Anion Gap 7 (5-15); BUN 8 mg/dL (7-18); BUN/Creat Ratio 8.4 RATIO (10-20); Calcium,Total 8.2 mg/dL (8.5-10.1); Chloride 103 mmol/L (98-107); Creatinine, Serum 0.95 mg/dL (0.70-1.30); EST Glomerular Filtration Rate 85 mL/min (>60); Est Glom Filt Rate - Afr Amer 102 mL/min (>60); Estimated Creatinine Clearance 79.33 ml/min; Glucose 124 mg/dL (74-106); Magnesium 2.2 mg/dL (1.6-2.6); Potassium 3.7 mmol/L (3.5-5.1); Sodium Level 136 mmol/L (136-145)
[2024-05-23 07:44] LABS: Phosphorus 1.3 mg/dL (2.5-4.9)
[2024-05-23 07:49] LABS: Differential Comment SCANNED
[2024-05-23 09:13] VITALS: BP 130/78; PULSE 88; RESP 18; TEMP 36.4; O2SAT 99
[2024-05-23] MEDS: Pantoprazole Sodium 40 MG Tablet PO (09:28)
[2024-05-23] MEDS: Sertraline 50 MG Tablet PO (09:28)
[2024-05-23] MEDS: Loratadine 10 MG Tablet PO (09:28)
[2024-05-23] MEDS: Losartan Potassium 100 MG Tablet PO (09:28)
[2024-05-23] MEDS: Loperamide 2 MG Capsule PO (09:37)
[2024-05-23] MEDS: Acetaminophen 500 MG Tablet PO (09:37)
[2024-05-23] MEDS: Glucerna Shake 120 ML LIQUID PO ×4 (09:37→20:02)
--- NOTE | 2024-05-23 10:35 | ADDICTION ---
Addendum entered by Vesta Muir 05/23/24 10:42: Spoke with the Director of [facility], which is where he had inpatient previously. They have agreed to place him on the 2nd floor (They do not have 5 floors, only two) upon his return. Original Note: This comic writer met with PT to conduct ASAM, MSE, AUDIT, DUDIT assessments. PT A+Ox4 and participated actively. All RAMP assessments completed. PT reports that plans to f/u with residential treatment services, [facility]. They will [place]
--- NOTE | 2024-05-23 11:18 | ADDICTION ---
Upon further assessment and speaking with the pt, he reports he cannot walk well, at as as well as struggles with incontinence. Spoke with ALEX about possible SNF or [facility] placement. Caron STONE) will follow up.
[2024-05-23] MEDS: Menthol/Lanolin/Calamine/Znox 113 GM Tube 1 APPLIC TOPICAL ×2 (11:36→20:02)
--- NOTE | 2024-05-23 12:23 | PCM.PN.HOSP ---
Reason for Visit Reason for Visit: Diagnoses Other pancytopenia (05/21/24) Alcohol abuse, uncomplicated (05/21/24) Alcohol use, unspecified with intoxication, unspecified (05/21/24) Weakness (05/21/24) Elevation of levels of liver transaminase levels (05/21/24) Unspecified fall, initial encounter (05/21/24) Subjective Subjective No acute events overnight. Saw patient at bedside's morning. Patient had improved energy this morning, was sitting up comfortably in bed, conversing normally, in no acute distress. Patient does continue to feel quite weak. He was able to move with assistance from nursing staff from bed to bedside chair. He is concerned about being able to take care of himself at home on discharge. He otherwise denies any acute alcohol withdrawal symptoms today. No other new concerns today. Objective Data Objective Data Vital Signs: Vital Signs Temp Pulse Resp BP Pulse Ox O2 Del Method 97.6 F L 88 18 130/78 H 99 Room Air 05/23/24 09:13 05/23/24 09:13 05/23/24 09:13 05/23/24 09:13 05/23/24 09:13 05/23/24 09:18 Oxygen Delivery Method Room Air Weight: 71.4 kg Body Mass Index (BMI) 22.6 Intake & Output: Intake and Output for Last 24 Hours 05/21/24 05/22/24 05/23/24 23:59 23:59 23:59 Intake Total 475 / 475 2945 / 2945 490 / 490 Balance 475 / 475 2945 / 2945 490 / 490 Medical Nutrition Assessment Dietitian: Malnutrition Criteria Met Start: 05/22/24 12:24 Freq: Status: Active Protocol: Document 05/22/24 12:24 SLA (Rec: 05/22/24 12:24 SLA [id number]) Nutrition Malnutrition Evidence of Malnutrition Exists Yes Malnutrition (severe): Social/Behavioral/ Environmental Evidenced By Suboptimal Energy Intake ( Severe),Weight Loss (Severe) Clinical Problem Acute Disease or Injury Related Malnutrition Etiology related to etoh abuse (18-24 beers/day0 and decreased appetite at meals d/t not feeling good Signs/Symptoms as evidenced by po intake mtg <75% of est nutritional needs x 5 days and 10.2% unintended 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 Order 4 oz glucerna shake 4x/ day with medpass for increased nutrition if consumed. Lab / Micro Data 05/23/24 06:33 05/23/24 06:33 Labs: Laboratory Results - last 24 hr 05/22/24 16:21: POC Glucose 105 05/22/24 20:08: POC Glucose 139 H 05/23/24 06:33: WBC 2.4 L, RBC 3.39 L, Hgb 10.6 L, Hct 31.2 L, MCV 92.0, MCH 31.3, MCHC 34.0, RDW Std Deviation 52.8 H, RDW Coeff of Heidi 15.6 H, Plt Count 34 L*, MPV 10.0, Differential Comment SCANNED, Diff Path Review February foll, Sodium 136, Potassium 3.7, Chloride 103, Carbon Dioxide 26.0, Anion Gap 7, BUN 8, Creatinine 0.95, Estim Creat Clear Calc 79.33, Est GFR (MDRD) Af Amer 102, Est GFR (MDRD) Non-Af 85, BUN/Creatinine Ratio 8.4 L, Glucose 124 H, Calcium 8.2 L, Phosphorus 1.3 L, Magnesium 2.2 05/23/24 06:44: POC Glucose 115 H Physical Exam Const alert, oriented x3, no apparent distress and average body habitus Constitutional Narrative: Middle-aged male, appears older than stated age, chronically ill-appearing, mildly fatigued but energy improving, no tremor noted, otherwise laying comfortably in bed, conversing normally, in no acute distress. Improving. General Appearance: cooperative and comfortable HEENT normocephalic, head/scalp atraumatic, hearing grossly normal bilaterally, nasal mucous membranes and turbinates normal and moist oral mucous membranes Eyes PERRL, EOMs intact bilaterally and conjunctivae normal Neck full ROM Chest inspection of chest normal Resp normal respiratory effort, normal air movement, no use of accessory muscles and clear to auscultation bilaterally Cardio regular rate, regular rhythm, no murmurs and peripheral pulses 2+ throughout GI normal to inspection, nondistended, normoactive bowel sounds, soft to palpation, non-tender and non-distended Back/Spine normal ROM Extremity normal to inspection, full ROM and no pedal edema Skin no rashes or lesions noted Neuro no focal motor deficits and no sensory deficits noted Speech: speech normal Psych mental status grossly normal Mood & Affect: anxious Assessment & Plan Assessment/Plan (1) Alcohol abuse: (2) Desire for detoxification: (3) Weakness: (4) Pancytopenia: (5) Transaminitis: PLAN: Plan Patient is a 64-year-old male who presented [facility] ED on 05/21/2024 with weakness and requesting alcohol detoxification. 1. Alcohol abuse with withdrawal and desire for detoxification ? Addiction medicine following. Alcohol level 274 on admit. Reported drinking around 24 beers daily. Started on phenobarbital taper with as needed medications per alcohol withdrawl order set on admission, will continue this. Symptoms not fully controlled, added Ativan as needed on 05/22 and will continue regular CIWA scoring. Improved on 05/23, no withdrawal symptoms. Continue folate and thiamine. Initially planning for discharge to alcohol treatment facility but given his weakness, will need SNF placement on discharge. Case management assisting with this as noted below. 2. Generalized weakness ? PT/OT/case management following. Patient reportedly had fall on day of admission, suspected due to acute alcohol intoxication but also some degree of general debility in setting of poor nutrition and active alcohol abuse. Therapy scores borderline but patient requesting SNF placement. Planning for SNF on discharge, referral sent on 05/23. 3. Alcoholic liver disease with mild transaminitis ? No formal diagnosis of cirrhosis but findings of pancytopenia with low platelets especially and physical exam findings fairly consistent with chronic liver disease. Mildly elevated LFTs likely due to mild degree of acute alcoholic hepatitis. LFTs downtrending on hospital day 2, no need to monitor further. 4. Pancytopenia ? Hemoglobin 11.3, WBC count 3.3, platelets 54 on admit. All slightly down trended on hospital day 2 after IV fluid resuscitation, now stable. Presumed secondary to alcoholic liver disease with likely some degree of anemia of chronic disease. No need to monitor further CBCs. SCDs for DVT prophylaxis. 5. Electrolyte abnormalities ? Sodium 127, magnesium 1.4, phosphorus 1.8 on admit presumed secondary to poor p.o. intake and alcohol use. Sodium 133 on hospital day 2 after IV fluid resuscitation. Monitor sodium level daily. Replete magnesium and phosphorus as needed. Chronic medical conditions: ? Hypertension: Stable. Continue home losartan. ? Type 2 diabetes mellitus: Most recent A1c 4.6%. On home metformin 500 mg twice daily. Blood sugars consistently below 100 on admission. Hold home metformin and no need for sliding scale insulin while inpatient, will plan to hold metformin on discharge as well. ? GERD: Continue home PPI. ? 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: Continue home Synthroid. ? Depression: Continue home sertraline. DVT prophylaxis: SCDs CODE STATUS: Full code, verified Expected disposition: SNF, likely medically ready for discharge on 05/24 Total clinical time spent by myself addressing the patient's medical issues, reviewing all the data, and collaborating with patient's care team: 35 minutes. Charges/Coding Visit Charges Inpatient E&M: 20047 Subs Hosp L2
--- NOTE | 2024-05-23 12:43 | CASEMGMT ---
Discharge Planning A list of SNF providers including quality and resource use data and consistent with the patient's preferred geographic region, medical needs, and insurance network was created in [facility].? This list was provided to the ALEX Guerra Discharge Planning Asst.
[2024-05-23 13:33] LABS: Pathologist Review Reviewed
[2024-05-23 14:04] VITALS: BP 125/81; PULSE 89; RESP 18; TEMP 36.6; O2SAT 99
--- NOTE | 2024-05-23 14:59 | CASEMGMT ---
Social Work SW met w/pt in room in regard to prior level of function and anticipated discharge plan. Pt normally lives alone in a house, his brother in law and sister live next door, and his other sister lives on the same street. Pt's PCP is Dr. Llanos, pt gets his prescriptions from [facility] in [place]. Pt states his family helps him with meals and with transportation, cleaning. Pt states he does not shower as he only has a tub and cannot get in and out of the tub. Pt states he just wears the same clothes all the time. Pt also states runs out of food, SW gave pt resources for food. He thought he qualified for food stamps, asked if we can check. SW sent an email to Amy to see if she can check on this. Pt has a walker and cane, uses the walker at times. Pt would like to go to SNF, with the goal of going back home. ALEX provided to pt a list from [facility] of fpc facilities in network w/pt's insurance, in pt's preferred geographic area, and complete w/quality and resource use data. Pt would like to go to [facility] or [facility] for rehab. Pt also shared w/SW that he lost his father and best friend in February, and his girlfriend of 30 years left him in March. He states she took the dogs and she told him both dogs . ALEX offered support to pt, as pt has had multiple losses recently. ALEX inquired if pt would be interested in counseling, he is open to this. ALEX provided to pt a list of counseling agencies in the area. ALEX inquired if it would be okay to call his brother in law Piotr, as he had called in asking about placement for pt. Pt states that Piotr is over me, (Piotr is his POA) and is fine to call him. homero Bell/juany city planning teacher will make referrals in [facility]. ALEX called Piotr, let him know SW spoke w/pt about going to a long term, pt agreeable. ALEX let Piotr know referrals are being sent to [facility] and [facility]. Piotr does not want pt going to [facility], as he had a loved one he feels due to the poor care he had at the facility. Piotr is hoping pt would stay for a couple of months to get stronger. ALEX explained first we need to get pt accepted and then look to insurance to approve. After that, once pt is at the facility it's up to the insurance, pt and family and SNF to coordinate. Piotr states understanding. ALEX will continue to follow for SNF placement, awaiting acceptance and precert. SANDY Cool
--- NOTE | 2024-05-23 15:02 | CASEMGMT ---
Addendum entered by Arabella Guerra 05/24/24 11:25: [facility] has declined. SW updated. Arabella Guerra DC Planning Asst. Original Note: Discharge Planning Referral sent via [facility] to [facility]. Arabella Guerra DC Planning Asst.
--- NOTE | 2024-05-23 15:06 | CHAPLAIN ---
Type of Pastoral Visit _x__ Initial Visit ___ Follow-up Visit ___ On-call Visit ___ General Patient Visit ___ Spiritual Assessment ___ Family Conference ___ Bereavement ___ Rapid Response ___ Code Blue ___ Other (describe below) Pastoral Care Referral From _x__ Patient ___ Family ___ Nurse ___ Physician ___ Mechanical Engineering Intern ___ Operations Lead ___ Other (describe below) Sacrament/Intervention _x__ Active listening ___ Anointing ___ Latter Day ___ Bereavement ___ Communion _x__ Zari exploration ___ _x__ Life review _x__ Prayer ___ Reconciliation ___ Sacrament of Sick _x__ Supportive presence ___ Wedding ___ Other (describe below) Pastoral Comments patient was seen in previous admission this year; pt gives some updated information and repeats some of the traumas of his past; pt is scientology sensitive and seeks supportive presence, encouragement, and prayers from this nursing student; pt is talkative and is open to talk about his feelings, experiences, and concerns; pt has a plan for rehab for immediate future
[2024-05-23] MEDS: Calcium Carbonate 500 MG Tablet PO (15:57)
[2024-05-23 20:00] VITALS: BP 122/83; PULSE 89; RESP 16; TEMP 36.8; O2SAT 100
[2024-05-23] MEDS: Mirtazapine 15 MG Tablet PO (20:03)
[2024-05-23 20:28] LABS: Bedside Glucose 143 mg/dL (74-106)
[2024-05-23 23:27] VITALS: BP 143/93; PULSE 92; RESP 18; TEMP 36.6; O2SAT 99
[2024-05-23] MEDS: traZODone 100 MG Tablet PO (23:29)
[2024-05-23] MEDS: Famotidine 20 MG Tablet PO (23:29)
[2024-05-24] MEDS: Acetaminophen 500 MG Tablet PO ×2 (03:33→17:31)
[2024-05-24] MEDS: Phenobarbital 32.4 MG Tablet PO ×4 (03:33→18:09)
[2024-05-24 06:45] VITALS: BP 135/71; PULSE 85; RESP 18; TEMP 36.8; O2SAT 99
[2024-05-24] MEDS: Levothyroxine 75 MCG Tablet PO (06:47)
[2024-05-24] MEDS: Na Biphos/Potassium Phosphate PACKET 1 PACKET PO ×3 (06:47→20:33)
[2024-05-24] MEDS: Gabapentin 300 MG Capsule PO ×3 (06:48→22:56)
[2024-05-24] MEDS: Folic Acid 1 MG Tablet PO (06:48)
[2024-05-24] MEDS: Thiamine Hydrochloride 100 MG Tablet PO (06:48)
[2024-05-24 07:11] LABS: Bedside Glucose 102 mg/dL (74-106)
[2024-05-24 07:42] LABS: Albumin, Serum 2.9 g/dL (3.2-5.0); BUN 7 mg/dL (7-18); BUN/Creat Ratio 7.4 RATIO (10-20); Calcium,Total 8.5 mg/dL (8.5-10.1); Chloride 103 mmol/L (98-107); Creatinine, Serum 0.95 mg/dL (0.70-1.30); EST Glomerular Filtration Rate 85 mL/min (>60); Est Glom Filt Rate - Afr Amer 103 mL/min (>60); Estimated Creatinine Clearance 79.33 ml/min; Glucose 108 mg/dL (74-106); Potassium 3.9 mmol/L (3.5-5.1); Sodium Level 135 mmol/L (136-145)
[2024-05-24 07:57] VITALS: BP 123/78; PULSE 83; RESP 18; TEMP 36.8; O2SAT 100
[2024-05-24] MEDS: Potassium Phosphate 40 MM in 0.9% Normal Saline (500mL Bag) 500 ML 62.5 MM IV (09:15)
[2024-05-24] MEDS: 0.9% Saline Lock 10 ML Syringe IV ×2 (09:15→16:19)
[2024-05-24] MEDS: Glucerna Shake 120 ML LIQUID PO ×4 (09:22→20:33)
[2024-05-24] MEDS: Loratadine 10 MG Tablet PO (09:22)
[2024-05-24] MEDS: Losartan Potassium 100 MG Tablet PO (09:22)
[2024-05-24] MEDS: Pantoprazole Sodium 40 MG Tablet PO (09:22)
[2024-05-24] MEDS: Sertraline 50 MG Tablet PO (09:22)
[2024-05-24] MEDS: Menthol/Lanolin/Calamine/Znox 113 GM Tube 1 APPLIC TOPICAL ×2 (09:23→20:33)
--- NOTE | 2024-05-24 09:53 | PCM.PN.HOSP ---
Reason for Visit Reason for Visit: Diagnoses Other pancytopenia (05/21/24) Alcohol abuse, uncomplicated (05/21/24) Alcohol use, unspecified with intoxication, unspecified (05/21/24) Weakness (05/21/24) Elevation of levels of liver transaminase levels (05/21/24) Unspecified fall, initial encounter (05/21/24) Subjective Subjective No acute events overnight. Saw patient at bedside this morning. Appeared similar to yesterday, sitting up comfortably in bedside chair, conversing normally, in no acute distress. Continues to report feeling weaker than his baseline. Otherwise denies any alcohol withdrawal symptoms today. No new concerns today. Objective Data Objective Data Vital Signs: Vital Signs Temp Pulse Resp BP Pulse Ox O2 Del Method 98.3 F 83 18 123/78 H 100 Room Air 05/24/24 07:57 05/24/24 07:57 05/24/24 07:57 05/24/24 07:57 05/24/24 07:57 05/24/24 07:57 Oxygen Delivery Method Room Air Weight: 71.4 kg Body Mass Index (BMI) 22.6 Intake & Output: Intake and Output for Last 24 Hours 05/22/24 05/23/24 05/24/24 23:59 23:59 23:59 Intake Total 2945 / 2945 1150 / 1475 565 / 565 Balance 2945 / 2945 1150 / 1475 565 / 565 Medical Nutrition Assessment Dietitian: Malnutrition Criteria Met Start: 05/22/24 12:24 Freq: Status: Active Protocol: Document 05/22/24 12:24 SLA (Rec: 05/22/24 12:24 SLA [id number]) Nutrition Malnutrition Evidence of Malnutrition Exists Yes Malnutrition (severe): Social/Behavioral/ Environmental Evidenced By Suboptimal Energy Intake ( Severe),Weight Loss (Severe) Clinical Problem Acute Disease or Injury Related Malnutrition Etiology related to etoh abuse (18-24 beers/day0 and decreased appetite at meals d/t not feeling good Signs/Symptoms as evidenced by po intake mtg <75% of est nutritional needs x 5 days and 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 Order 4 oz glucerna shake 4x/ day with medpass for increased nutrition if consumed. Lab / Micro Data 05/23/24 06:33 05/24/24 06:12 Labs: Laboratory Results - last 24 hr 05/22/24 06:38: Diff Path Review Reviewed 05/23/24 20:08: POC Glucose 143 H 05/24/24 06:12: Sodium 135 L, Potassium 3.9, Chloride 103, Carbon Dioxide 26.0, BUN 7, Creatinine 0.95, Estim Creat Clear Calc 79.33, Est GFR (MDRD) Af Amer 103, Est GFR (MDRD) Non-Af 85, BUN/Creatinine Ratio 7.4 L, Glucose 108 H, Calcium 8.5, Phosphorus 1.0 L*, Albumin 2.9 L 05/24/24 06:47: POC Glucose 102 Physical Exam Const alert, oriented x3, no apparent distress and average body habitus Constitutional Narrative: Middle-aged male, appears older than stated age, chronically ill-appearing, mildly fatigued but energy improving, no tremor noted, otherwise sitting up comfortably in bedside chair, conversing normally, in no acute distress. Improving. General Appearance: cooperative and comfortable HEENT normocephalic, head/scalp atraumatic, hearing grossly normal bilaterally, nasal mucous membranes and turbinates normal and moist oral mucous membranes Eyes PERRL, EOMs intact bilaterally and conjunctivae normal Neck full ROM Chest inspection of chest normal Resp normal respiratory effort, normal air movement, no use of accessory muscles and clear to auscultation bilaterally Cardio regular rate, regular rhythm, no murmurs and peripheral pulses 2+ throughout GI normal to inspection, nondistended, normoactive bowel sounds, soft to palpation, non-tender and non-distended Back/Spine normal ROM Extremity normal to inspection, full ROM and no pedal edema Skin no rashes or lesions noted Neuro no focal motor deficits and no sensory deficits noted Speech: speech normal Psych mental status grossly normal Mood & Affect: anxious Assessment & Plan Assessment/Plan (1) Alcohol abuse: (2) Desire for detoxification: (3) Weakness: (4) Pancytopenia: (5) Transaminitis: PLAN: Plan Patient is a 64-year-old male who presented [facility] ED on 05/21/2024 with weakness and requesting alcohol detoxification. 1. Alcohol abuse with withdrawal and desire for detoxification ? Addiction medicine following. Alcohol level 274 on admit. Reported drinking around 24 beers daily. Started on phenobarbital taper with as needed medications per alcohol withdrawl order set on admission. Symptoms not fully controlled, added Ativan as needed on 05/22 and will continue regular CIWA scoring. Improved on 05/23, no withdrawal symptoms. Continue phenobarb taper. Continue folate and thiamine. Initially planning for discharge to alcohol treatment facility but given his weakness, will need SNF placement on discharge. Case management assisting with this as noted below. Will be medically ready for discharge once hypophosphatemia as noted below improves, likely in next 1 to 2 days. 2. Generalized weakness ? PT/OT/case management following. Patient reportedly had fall on day of admission, suspected due to acute alcohol intoxication but also some degree of general debility in setting of poor nutrition and active alcohol abuse. Therapy scores borderline but patient requesting SNF placement. Planning for SNF on discharge, referrals sent on 05/23. 3. Alcoholic liver disease with mild transaminitis ? No formal diagnosis of cirrhosis but findings of pancytopenia with low platelets especially and physical exam findings fairly consistent with chronic liver disease. Mildly elevated LFTs likely due to mild degree of acute alcoholic hepatitis. LFTs downtrending on hospital day 2, no need to monitor further. 4. Pancytopenia, stable ? Hemoglobin 11.3, WBC count 3.3, platelets 54 on admit. All slightly down trended on hospital day 2 after IV fluid resuscitation, now stable. Presumed secondary to alcoholic liver disease with likely some degree of anemia of chronic disease. No need to monitor further CBCs. SCDs for DVT prophylaxis. 5. Hyponatremia, resolved ? Sodium 127 on admission. Suspect due to poor p.o. intake and alcohol use. Improved to 136 by 05/23, no need to monitor further sodium levels. ? Sodium 127, magnesium 1.4, phosphorus 1.8 on admit presumed secondary to poor p.o. intake and alcohol use. Sodium 133 on hospital day 2 after IV fluid resuscitation. Monitor sodium level daily. Replete magnesium and phosphorus as needed. 6. Hypophosphatemia, hypomagnesemia ? Phosphorus 1.8, magnesium 1.4 on admit. Presumed secondary to poor p.o. intake and alcohol use. Phosphorus unfortunately slowly dropping despite p.o. repletion, lisseth of 1.0 on 05/24. Repleting IV on 05/24 and will continue p.o repletion as well. Magnesium improved. Chronic medical conditions: ? Hypertension: Stable. Continue home losartan. ? Type 2 diabetes mellitus: Most recent A1c 4.6%. On home metformin 500 mg twice daily. Blood sugars consistently below 100 on admission. Hold home metformin and no need for sliding scale insulin while inpatient, will plan to hold metformin on discharge as well. ? GERD: Continue home PPI. ? 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: Continue home Synthroid. ? Depression: Continue home sertraline. DVT prophylaxis: SCDs CODE STATUS: Full code, verified Expected disposition: SNF, 1 to 2 days Total clinical time spent by myself addressing the patient's medical issues, reviewing all the data, and collaborating with patient's care team: 35 minutes. Charges/Coding Visit Charges Inpatient E&M: 59267 Subs Hosp L2
--- NOTE | 2024-05-24 10:13 | CASEMGMT ---
Social Work SW spoke w/pt, let him know the referral at [facility] is still pending. SW asked for additional choices as his POA/Brother in law had said he was not in favor of pt going to [facility]. Pt states he understands this as states his father was there. Pt gave SW additional choices, [facility], [facility], [facility]. Pt states he does not really care where he goes, to just go down the list. SW also gave pt the number for [facility], let him know he would need to call himself to ask about food stamps, as Amy had let SW know they will not communicate [facility] information to her. SW also asked about pt's seizure disorder, pt states he has had that since he was a child. The hospital exemption will reflect this information. SW will continue to follow. We are still waiting for an answer from [facility]. If they cannot take pt will make additional referrals. SANDY Cool
--- NOTE | 2024-05-24 11:30 | CASEMGMT ---
Addendum entered by Arabella Guerra 05/24/24 14:04: [facility] declined referral. SW updated. Arabella Guerra DC Planning Asst. Addendum entered by Arabella Guerra 05/24/24 14:00: [facility] declined. SW updated. Arabella Guerra DC Planning Asst. Original Note: Discharge Planning Referral sent to [facility] and [facility] via [facility]. Arabella Guerra DC Planning Asst.
[2024-05-24] MEDS: hydrOXYzine PAM 25 MG Capsule 50 MG PO ×3 (11:48→22:56)
[2024-05-24] MEDS: Ondansetron 8 MG Tablet PO (11:48)
[2024-05-24] MEDS: Loperamide 2 MG Capsule PO (11:48)
[2024-05-24 12:46] LABS: Bedside Glucose 148 mg/dL (74-106)
--- NOTE | 2024-05-24 14:06 | CASEMGMT ---
Addendum entered by Arabella Guerra 05/25/24 12:19: Updates sent to [facility] with request that precert be submitted. Arabella Guerra DC Planning Asst. Addendum entered by Arabella Guerra 05/25/24 08:56: [facility] has accepted. SW updated. Arabella Guerra DC Planning Asst. Original Note: Discharge Planning Referral sent to [facility] via [employer]. Arabella Guerra DC Planning Asst.
[2024-05-24 14:45] VITALS: BP 108/71; PULSE 97; RESP 18; TEMP 36.7; O2SAT 100
[2024-05-24 14:53] LABS: Pathologist Review Reviewed
[2024-05-24] MEDS: Arthritis Pain Compound 60 CLICK TUBE TOPICAL (16:19)
[2024-05-24] MEDS: Calcium Carbonate 500 MG Tablet PO (17:31)
[2024-05-24 20:27] VITALS: BP 121/56; PULSE 85; RESP 18; TEMP 36.5; O2SAT 100
[2024-05-24] MEDS: Mirtazapine 15 MG Tablet PO (20:33)
[2024-05-24] MEDS: traZODone 100 MG Tablet PO (22:56)
[2024-05-25 02:07] VITALS: BP 98/62; PULSE 82; RESP 16; TEMP 36.6; O2SAT 98
[2024-05-25] MEDS: Phenobarbital 32.4 MG Tablet PO ×4 (02:09→19:15)
[2024-05-25] MEDS: Acetaminophen 500 MG Tablet PO ×3 (04:30→21:25)
[2024-05-25] MEDS: hydrOXYzine PAM 25 MG Capsule 50 MG PO ×5 (04:30→21:25)
--- NOTE | 2024-05-25 05:33 | NURSING ---
Patient complaining of chest pain and asking for Nitro. This RN told patient I need to get vitals and an EKG before I can give Nitro. Patient yelled Well then fuck you, I'm not doing that. You can all go to hell. This RN educated patient of policies in place for chest pain.
[2024-05-25 06:36] LABS: Albumin, Serum 3.2 g/dL (3.2-5.0); BUN 7 mg/dL (7-18); BUN/Creat Ratio 6.6 RATIO (10-20); Calcium,Total 8.8 mg/dL (8.5-10.1); Chloride 97 mmol/L (98-107); Creatinine, Serum 1.06 mg/dL (0.70-1.30); EST Glomerular Filtration Rate 75 mL/min (>60); Est Glom Filt Rate - Afr Amer 90 mL/min (>60); Glucose 147 mg/dL (74-106); Phosphorus 2.6 mg/dL (2.5-4.9); Potassium 3.6 mmol/L (3.5-5.1); Sodium Level 130 mmol/L (136-145)
[2024-05-25] MEDS: Gabapentin 300 MG Capsule PO ×2 (06:58→15:22)
[2024-05-25] MEDS: Levothyroxine 75 MCG Tablet PO (06:58)
[2024-05-25] MEDS: Na Biphos/Potassium Phosphate PACKET 1 PACKET PO ×3 (06:58→21:13)
[2024-05-25] MEDS: Sertraline 50 MG Tablet PO (08:13)
[2024-05-25] MEDS: Ondansetron 8 MG Tablet PO (08:14)
[2024-05-25] MEDS: Folic Acid 1 MG Tablet PO (08:14)
[2024-05-25] MEDS: Thiamine Hydrochloride 100 MG Tablet PO (08:14)
[2024-05-25] MEDS: Loratadine 10 MG Tablet PO (08:14)
[2024-05-25] MEDS: Pantoprazole Sodium 40 MG Tablet PO (08:14)
[2024-05-25] MEDS: Losartan Potassium 100 MG Tablet PO (08:15)
[2024-05-25] MEDS: Calcium Carbonate 500 MG Tablet PO (08:20)
[2024-05-25 09:00] VITALS: BP 115/70; PULSE 97; RESP 18; TEMP 36.8; O2SAT 100
[2024-05-25] MEDS: Menthol/Lanolin/Calamine/Znox 113 GM Tube 1 APPLIC TOPICAL ×2 (11:24→21:13)
--- NOTE | 2024-05-25 12:29 | PCM.PN.HOSP ---
Reason for Visit Reason for Visit: Diagnoses Other pancytopenia (05/21/24) Alcohol abuse, uncomplicated (05/21/24) Alcohol use, unspecified with intoxication, unspecified (05/21/24) Weakness (05/21/24) Elevation of levels of liver transaminase levels (05/21/24) Unspecified fall, initial encounter (05/21/24) Subjective Subjective Overnight patient did have a small fall onto his left side when getting up out of his bedside chair. Has some bruising noted on his left leg and left arm, with small scrape on his left forearm that is bandaged. Patient was generally unhappy with many things this morning. He was not happy about the alarm going off whenever he left his chair, though I told him this was because he had the fall last night. He stated the Tylenol was not cutting it for his worsening left-sided pain now and was asking for something stronger. He was unhappy that his medications were apparently being given to him after they were scheduled to be given. He otherwise stated he was eating and drinking fine and denied any alcohol withdrawal symptoms. No other acute concerns. Objective Data Objective Data Vital Signs: Vital Signs Temp Pulse Resp BP Pulse Ox O2 Del Method 98.3 F 97 18 115/70 100 Room Air 05/25/24 09:00 05/25/24 09:00 05/25/24 09:00 05/25/24 09:00 05/25/24 09:00 05/25/24 09:00 Oxygen Delivery Method Room Air Weight: 71.4 kg Body Mass Index (BMI) 22.6 Intake & Output: Intake and Output for Last 24 Hours 05/23/24 05/24/24 05/25/24 23:59 23:59 23:59 Intake Total 1150 / 1475 2017.3333 Balance 1150 / 1475 2017.3 Medical Nutrition Assessment Dietitian: Malnutrition Criteria Met Start: 05/22/24 12:24 Freq: Status: Active Protocol: Document 05/24/24 12:13 RMA (Rec: 05/24/24 12:13 RMA [id number]) Nutrition Malnutrition Evidence of Malnutrition Exists Yes Malnutrition (severe): Chronic,Social/Behavioral/ Environmental Evidenced By Suboptimal Energy Intake ( Severe),Weight Loss (Severe) Clinical Problem Acute Disease or Injury Related Malnutrition Etiology severe protein-calorie malnutrition in the context of chronic disease/social circumstance related to alcohol abuse and inadequate nutrient intake/nutrient-dense foods Signs/Symptoms as evidenced by BMI 22.6, PO intake meeting <50% of estimated nutritional needs x 1 month and ~10% unintentional weight loss x 6 past 1-2 months Status Active Problem Recommendation Dietitian Recommendations/Changes Continue liberal regular diet d/t signs and symptoms of malnutrition - change to CHO Control if blood glucose rises . Continue 4 oz glucerna shake 4x/day with medpass for increased nutrition if consumed. Adjust ONS as needed if PO declines at meals. Lab / Micro Data 05/23/24 06:33 05/25/24 05:22 Labs: Laboratory Results - last 24 hr 05/23/24 06:33: Diff Path Review Reviewed 05/24/24 12:27: POC Glucose 148 H 05/25/24 05:22: Sodium 130 L, Potassium 3.6, Chloride 97 L, Carbon Dioxide 22.0, BUN 7, Creatinine 1.06, Estim Creat Clear Calc 71.10, Est GFR (MDRD) Af Amer 90, Est GFR (MDRD) Non-Af 75, BUN/Creatinine Ratio 6.6 L, Glucose 147 H, Calcium 8.8, Phosphorus 2.6, Albumin 3.2 Physical Exam Const alert, oriented x3, no apparent distress and average body habitus Constitutional Narrative: Middle-aged male, appears older than stated age, chronically ill-appearing, mildly fatigued, no tremor noted, otherwise sitting up comfortably in bedside chair, conversing normally, in no acute distress. Stable. General Appearance: cooperative and comfortable HEENT normocephalic, head/scalp atraumatic, hearing grossly normal bilaterally, nasal mucous membranes and turbinates normal and moist oral mucous membranes Eyes PERRL, EOMs intact bilaterally and conjunctivae normal Neck full ROM Chest inspection of chest normal Resp normal respiratory effort, normal air movement, no use of accessory muscles and clear to auscultation bilaterally Cardio regular rate, regular rhythm, no murmurs and peripheral pulses 2+ throughout GI normal to inspection, nondistended, normoactive bowel sounds, soft to palpation, non-tender and non-distended Back/Spine normal ROM Extremity Extremity Narrative: Bruising noted on left hip and left forearm and upper arm. Neuro no focal motor deficits and no sensory deficits noted Speech: speech normal Psych mental status grossly normal Assessment & Plan Assessment/Plan (1) Alcohol abuse: (2) Desire for detoxification: (3) Weakness: (4) Pancytopenia: (5) Transaminitis: PLAN: Plan Patient is a 64-year-old male who presented [facility] ED on 05/21/2024 with weakness and requesting alcohol detoxification. 1. Alcohol abuse with withdrawal and desire for detoxification ? Addiction medicine following. Alcohol level 274 on admit. Reported drinking around 24 beers daily. Started on phenobarbital taper with as needed medications per alcohol withdrawl order set on admission. Symptoms not fully controlled, added Ativan as needed on 05/22 and will continue regular CIWA scoring. Improved on 05/23, no withdrawal symptoms. Continue phenobarb taper. Continue folate and thiamine. Initially planning for discharge to alcohol treatment facility but given his weakness, will need SNF placement on discharge. Case management assisting with this as noted below. Medically ready for discharge on 05/25. 2. Generalized weakness ? PT/OT/case management following. Patient reportedly had fall on day of admission, suspected due to acute alcohol intoxication but also some degree of general debility in setting of poor nutrition and active alcohol abuse. Therapy scores borderline but patient requesting SNF placement. Planning for SNF on discharge, accepted to [facility], pre-CERT pending. 3. Alcoholic liver disease with mild transaminitis ? No formal diagnosis of cirrhosis but findings of pancytopenia with low platelets especially and physical exam findings fairly consistent with chronic liver disease. Mildly elevated LFTs likely due to mild degree of acute alcoholic hepatitis. LFTs downtrending on hospital day 2, no need to monitor further. 4. Pancytopenia, stable ? Hemoglobin 11.3, WBC count 3.3, platelets 54 on admit. All slightly down trended on hospital day 2 after IV fluid resuscitation. Platelet count notably down to mid 30s, stable. Presumed secondary to alcoholic liver disease with likely some degree of anemia of chronic disease. No need to monitor further CBCs. SCDs for DVT prophylaxis. 5. Hyponatremia, resolved ? Sodium 127 on admission. Suspect due to poor p.o. intake and alcohol use. Improved to 136 by 05/23, no need to monitor further sodium levels. ? Sodium 127, magnesium 1.4, phosphorus 1.8 on admit presumed secondary to poor p.o. intake and alcohol use. Sodium 133 on hospital day 2 after IV fluid resuscitation. Monitor sodium level daily. Replete magnesium and phosphorus as needed. 6. Hypophosphatemia, hypomagnesemia ? Phosphorus 1.8, magnesium 1.4 on admit. Presumed secondary to poor p.o. intake and alcohol use. Phosphorus dropped despite p.o. repletion with lisseth of 1.0 on 05/24, significantly improved on 05/25 with IV Phos repletion. Continue to monitor labs daily and replete as needed. Chronic medical conditions: ? Hypertension: Stable. Continue home losartan. ? Type 2 diabetes mellitus: Most recent A1c 4.6%. On home metformin 500 mg twice daily. Blood sugars consistently below 100 on admission. Hold home metformin and no need for sliding scale insulin while inpatient, will plan to hold metformin on discharge as well. ? GERD: Continue home PPI. ? 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: Continue home Synthroid. ? Depression: Continue home sertraline. DVT prophylaxis: SCDs CODE STATUS: Full code, verified Expected disposition: SNF, medically ready for discharge on 05/25, pre-CERT pending Total clinical time spent by myself addressing the patient's medical issues, reviewing all the data, and collaborating with patient's care team: 35 minutes. Charges/Coding Visit Charges Inpatient E&M: 98450 Subs Hosp L2
[2024-05-25] MEDS: HYDROcodone Bitartrate/Apap 5/325 Tablet PO ×2 (12:40→18:45)
[2024-05-25] MEDS: Arthritis Pain Compound 60 CLICK TUBE TOPICAL (13:40)
[2024-05-25 14:07] VITALS: BP 133/83; PULSE 88; RESP 18; TEMP 37.1; O2SAT 98
[2024-05-25] MEDS: Mirtazapine 15 MG Tablet PO (21:13)
[2024-05-25] MEDS: traZODone 100 MG Tablet PO (21:25)
[2024-05-25] MEDS: Famotidine 20 MG Tablet PO (21:25)
[2024-05-25 21:37] VITALS: BP 127/76; PULSE 86; RESP 16; TEMP 36.4; O2SAT 100
[2024-05-26] MEDS: Gabapentin 300 MG Capsule PO ×2 (00:01→08:52)
[2024-05-26] MEDS: Loperamide 2 MG Capsule PO ×2 (00:01→06:37)
[2024-05-26] MEDS: Arthritis Pain Compound 60 CLICK TUBE TOPICAL ×2 (00:01→11:27)
[2024-05-26] MEDS: Ondansetron 8 MG Tablet PO ×2 (00:01→08:52)
[2024-05-26] MEDS: Dicyclomine 10 MG Capsule 20 MG PO ×2 (00:01→06:37)
[2024-05-26] MEDS: Phenobarbital 32.4 MG Tablet PO (00:26)
[2024-05-26] MEDS: Levothyroxine 75 MCG Tablet PO (06:36)
[2024-05-26] MEDS: Acetaminophen 500 MG Tablet PO (06:37)
[2024-05-26] MEDS: Na Biphos/Potassium Phosphate PACKET 1 PACKET PO ×2 (06:37→15:47)
[2024-05-26 06:42] VITALS: BP 97/64; PULSE 84; RESP 16; TEMP 36.1; O2SAT 94
[2024-05-26 08:00] VITALS: BP 117/84; PULSE 87; RESP 18; TEMP 36.9; O2SAT 98
[2024-05-26 08:02] LABS: Albumin, Serum 2.6 g/dL (3.2-5.0); BUN 7 mg/dL (7-18); BUN/Creat Ratio 6.3 RATIO (10-20); Calcium,Total 8.4 mg/dL (8.5-10.1); Chloride 100 mmol/L (98-107); Creatinine, Serum 1.11 mg/dL (0.70-1.30); EST Glomerular Filtration Rate 71 mL/min (>60); Est Glom Filt Rate - Afr Amer 86 mL/min (>60); Glucose 92 mg/dL (74-106); Phosphorus 3.6 mg/dL (2.5-4.9); Potassium 4.1 mmol/L (3.5-5.1); Sodium Level 132 mmol/L (136-145)
[2024-05-26] MEDS: Folic Acid 1 MG Tablet PO (08:52)
[2024-05-26] MEDS: hydrOXYzine PAM 25 MG Capsule 50 MG PO (08:52)
[2024-05-26] MEDS: Loratadine 10 MG Tablet PO (08:52)
[2024-05-26] MEDS: tiZANidine HCl 2 MG Tablet 4 MG PO ×2 (08:52)
[2024-05-26] MEDS: Pantoprazole Sodium 40 MG Tablet PO (08:52)
[2024-05-26] MEDS: Sertraline 50 MG Tablet PO (08:52)
[2024-05-26] MEDS: Thiamine Hydrochloride 100 MG Tablet PO (08:53)
[2024-05-26] MEDS: Losartan Potassium 100 MG Tablet PO (08:53)
[2024-05-26] MEDS: Menthol/Lanolin/Calamine/Znox 113 GM Tube 1 APPLIC TOPICAL (08:53)
--- NOTE | 2024-05-26 09:22 | CASEMGMT ---
Discharge Planning [facility] has obtained auth to admit. SW updated. Arabella Guerra DC Planning Asst.
--- NOTE | 2024-05-26 09:34 | PCM.TXEXTCAR ---
Diet Diet Order/Speech Therapy: 05/21/24 23:24 Diet: Regular - General Food consistency:: Regular Liquid Consistency:: Regular/Thin Diet Comments: With snacks three times daily as tolerated Routine Orders/Code Status Routine Lab Work: CBC and BMP Code Status: Full Code Wound(s) Left arm: Wound Type: Skin Tear left lower arm above elbow: Wound Type: Skin Tear Therapies Physical Therapy: Eval and Treat Occupational Therapy: Eval and Treat Problem/Diagnosis (1) Alcohol abuse: Status: Acute Code(s): F10.10 - Alcohol abuse, uncomplicated (2) Desire for detoxification: Status: Acute (3) Weakness: Status: Acute Code(s): R53.1 - Weakness (4) Pancytopenia: Status: Acute Code(s): D61.818 - Other pancytopenia (5) Transaminitis: Status: Acute Code(s): R74.01 - Elevation of levels of liver transaminase levels Allergies/Procedures Done in Hospital Allergies allopurinol Allergy (Intermediate, Verified 05/21/24 19:55) Other codeine Allergy (Intermediate, Verified 05/21/24 19:55) Other Penicillins Allergy (Intermediate, Verified 05/21/24 19:55) Other Procedures: None Type of Care/Length of Stay Estimated LOS: Convalescent Care Less Than 30 days Type of Care Needed: Skilled Rehab Potential: Good Prognosis: Good Additional Orders/Day of Discharge Day of Discharge: 05/26/24 Dietary and Speech Recommendations Dietitian Recommendations/Changes: Continue liberal regular diet d/t signs and symptoms of malnutrition - change to CHO Control if blood glucose rises. Continue 4 oz glucerna shake 4x/day with medpass for increased nutrition if consumed. Adjust ONS as needed if PO declines at meals. Discharge Plan Admission Admit Date/Time: 05/21/24 22:15 Attending Provider: Richie Ayala Primary Care Provider: Sudarshan Llanos Consulting Providers: Ruddy Galdamez; Wilber Jaeger Discharge Orders/Prescriptions Prescriptions: New Arthritis Pain Compound 2 click topical BID PRN PRNQty: 0 0RF Continued ondansetron 4 mg tablet,disintegrating 4 mg PO Q8H metformin 500 mg tablet 500 mg PO BID Qty: 6 0RF pravastatin 40 mg tablet 40 mg PO DAILY Qty: 3 0RF tizanidine 4 mg tablet 4 mg PO Q6H Qty: 12 0RF levothyroxine [Synthroid] 75 mcg tablet 75 mcg PO DAILY Qty: 3 0RF pantoprazole 40 mg tablet,delayed release (DR/EC) 40 mg PO DAILY Qty: 3 0RF nitroglycerin [Nitrostat] 0.4 mg tablet, sublingual 0.4 mg sublingual Q5M PRN (Reason: chest pain) Qty: 3 0RF Rx Instructions: do not exceed 3 doses per episode mirtazapine 15 mg tablet 15 mg PO QHS Qty: 3 0RF losartan 100 mg tablet 100 mg PO DAILY Qty: 3 0RF loratadine 10 mg tablet 10 mg PO DAILY Qty: 3 0RF hydroxyzine pamoate 25 mg capsule 50 mg PO BID Qty: 6 0RF albuterol sulfate 90 mcg/actuation HFA aerosol inhaler 2 puff inhalation Q6H PRN PRN (Reason: shortness of breath or wheezing) famotidine 20 mg tablet 20 mg PO QHS PRN PRN (Reason: GERD) potassium chloride 10 mEq tablet extended release 10 meq PO DAILY sertraline 50 mg tablet 50 mg PO DAILY olmesartan 40 mg tablet 40 mg PO DAILY hydroxyzine HCl 25 mg tablet 25 mg PO Q6H PRN (Reason: itching) Patient Comments: TAKE ONE TABLET BY MOUTH EVERY 6 HOURS NEEDED FOR itching ketoconazole 2 % shampoo 1 applic TOPICAL DAILY PRN Patient Comments: USE to WASH scalp daily, LEAVE on FOR 5 MINUTES, THEN rinse DIRECTED Referrals / Follow Up: Sudarshan Llanos MD [Primary Care Provider] - Disposition Disposition (needs filled in before D/C Order can be placed): [facility]itentiary Facility
--- NOTE | 2024-05-26 09:52 | CASEMGMT ---
Social Work Precert has been obtained for pt to discharge to [facility] today. Physician updated and pt is ready for dc today. 7000 exemption form completed in [facility]. DC sales service assistant notified and to complete dc Dispostion: [facility], skilled level of care, under convalescent stay GISSELL Suarez
--- NOTE | 2024-05-26 10:12 | PHA.DC.MR.R ---
Pharmacy [place] Med Reconciliation Pharmacy Service has performed discharge medication reconciliation for this patient. The patient's discharge medication list was reviewed for discrepancies and discrepancies were resolved. Medications at Discharge Home Medications ondansetron 4 mg disintegrating tablet 4 mg PO Q8H 11/11/22 hydroxyzine pamoate 25 mg capsule 50 mg (2 x 25 mg) PO BID #6 caps 04/08/24 levothyroxine 75 mcg tablet (Synthroid) 75 mcg PO DAILY #3 tabs 04/08/24 loratadine 10 mg tablet 10 mg PO DAILY #3 tabs 04/08/24 losartan 100 mg tablet 100 mg PO DAILY #3 tabs 04/08/24 metformin 500 mg tablet 500 mg PO BID #6 tabs 04/08/24 mirtazapine 15 mg tablet 15 mg PO QHS #3 tabs 04/08/24 nitroglycerin 0.4 mg sublingual tablet (Nitrostat) 0.4 mg sublingual Q5M PRN chest pain #3 tabs 04/08/24 pantoprazole 40 mg tablet,delayed release 40 mg PO DAILY #3 tabs 04/08/24 pravastatin 40 mg tablet 40 mg PO DAILY #3 tabs 04/08/24 tizanidine 4 mg tablet 4 mg PO Q6H #12 tabs 04/08/24 albuterol sulfate 90 mcg/actuation aerosol inhaler 2 puff inhalation Q6H PRN PRN shortness of breath or wheezing 05/02/24 famotidine 20 mg tablet 20 mg PO QHS PRN PRN GERD 05/03/24 olmesartan 40 mg tablet 40 mg PO DAILY 05/03/24 potassium chloride 10 mEq tablet,extended release 10 meq PO DAILY 05/03/24 sertraline 50 mg tablet 50 mg PO DAILY 05/03/24 hydroxyzine HCl 25 mg tablet 25 mg PO Q6H PRN itching 05/24/24 ketoconazole 2 % shampoo 1 applic topical DAILY PRN HEAD SORES 05/24/24 Arthritis Pain Compound 2 click topical BID PRN PRN ##0 05/26/24
[2024-05-26 11:23] VITALS: BP 80/52; PULSE 73; RESP 18; TEMP 36.6; O2SAT 96
--- NOTE | 2024-05-26 11:27 | DS.PCM_ITS ---
Providers Date of Admission: 05/21/24 Primary Care Physician: Dr. Sudarshan Llanos MD Reason For Visit: ALCOHOL WITHDRAWAL Diagnosis Discharge Diagnosis (1) Alcohol abuse: Status: Acute Code(s): F10.10 - Alcohol abuse, uncomplicated (2) Desire for detoxification: Status: Acute (3) Weakness: Status: Acute Code(s): R53.1 - Weakness (4) Pancytopenia: Status: Acute Code(s): D61.818 - Other pancytopenia (5) Transaminitis: Status: Acute Code(s): R74.01 - Elevation of levels of liver transaminase levels Medications at Discharge Home Medications ondansetron 4 mg disintegrating tablet 4 mg PO Q8H 11/11/22 losartan 100 mg tablet 100 mg PO DAILY #3 tabs 04/08/24 mirtazapine 15 mg tablet 15 mg PO QHS #3 tabs 04/08/24 nitroglycerin 0.4 mg sublingual tablet (Nitrostat) 0.4 mg sublingual Q5M PRN chest pain #3 tabs 04/08/24 tizanidine 4 mg tablet 4 mg PO Q6H #12 tabs 04/08/24 albuterol sulfate 90 mcg/actuation aerosol inhaler 2 puff inhalation Q6H PRN PRN shortness of breath or wheezing 05/02/24 famotidine 20 mg tablet 20 mg PO QHS PRN PRN GERD 05/03/24 potassium chloride 10 mEq tablet,extended release 10 meq PO DAILY 05/03/24 sertraline 50 mg tablet 50 mg PO DAILY 05/03/24 hydroxyzine HCl 25 mg tablet 25 mg PO Q6H PRN itching 05/24/24 ketoconazole 2 % shampoo 1 applic topical DAILY PRN HEAD SORES 05/24/24 Arthritis Pain Compound 2 click topical BID PRN PRN ##0 05/26/24 Hospital Course Operations None Procedures None Summary of Care Provided Minutes Spent on Discharge: 36 Hospital Course: Per HPI: WOODY RECINOS, is a 64 M who presents after a fall. Patient was intoxicated and fell hitting his head. He underwent a workup including a CT of the cervical spine that showed degenerative changes and left paramedian disc herniation of C5-C6, negative head CT. Patient was admitted last month for alcohol withdrawal and went to acute alcohol rehab. Patient was on the 6 floor did not have an elevator and was too weak to be able to go up that so that was in [facility] presented to [facility] who discharged him to home. Patient has continued to drink since being at home. After his fall he is now requesting treatment for alcohol withdrawal. Hospital Course: 1. Alcohol abuse with withdrawal and desire for detoxification ? Addiction medicine following. Alcohol level 274 on admit. Reported drinking around 24 beers daily. Started on phenobarbital taper with as needed medications per alcohol withdrawl order set on admission. Symptoms not fully controlled, added Ativan as needed on 05/22 and will continue regular CIWA scoring. Improved on 05/23, no withdrawal symptoms. Continue phenobarb taper. Continue folate and thiamine. Initially planning for discharge to alcohol treatment facility but given his weakness, will need SNF placement on discharge. Case management assisting with this as noted below. Medically ready for discharge on 05/25. 05/26/2024: Has completed alcohol withdrawal protocol 2. Generalized weakness ? PT/OT/case management following. Patient reportedly had fall on day of admission, suspected due to acute alcohol intoxication but also some degree of general debility in setting of poor nutrition and active alcohol abuse. Therapy scores borderline but patient requesting SNF placement. Planning for SNF on discharge, accepted to [facility], pre-CERT pending. 05/26/2024: Has received pre-CERT,, discussed with him the plan for discharge today he expressed understanding of the risk benefits going to the long term and would like to go today. 3. Alcoholic liver disease with mild transaminitis ? No formal diagnosis of cirrhosis but findings of pancytopenia with low platelets especially and physical exam findings fairly consistent with chronic liver disease. Mildly elevated LFTs likely due to mild degree of acute alcoholic hepatitis. LFTs downtrending on hospital day 2, no need to monitor further. 4. Pancytopenia, stable ? Hemoglobin 11.3, WBC count 3.3, platelets 54 on admit. All slightly down trended on hospital day 2 after IV fluid resuscitation. Platelet count notably down to mid 30s, stable. Presumed secondary to alcoholic liver disease with likely some degree of anemia of chronic disease. No need to monitor further CBCs. SCDs for DVT prophylaxis. 05/26/2024: This will need to be monitored as an outpatient, it is due to his alcoholic liver disease as well as likely marrow suppression from his alcohol Chronic medical conditions: ? Hypertension: Stable. Continue home losartan. ? Type 2 diabetes mellitus: Most recent A1c 4.6%. 05/26/2024: Discontinued metformin on discharge ? GERD: Last fill was in March for 3 days, will discontinue on discharge ? 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: Continue home Synthroid. No TSH in our system and his last fill was in March for 3 days, we will discontinue would recommend outpatient monitoring ? Depression: Continue home sertraline. Physical Exam Narrative General: Alert, Oriented x3, Cooperative, No apparent distress HEENT: Atraumatic, PERRLA, EOMI, Normocephalic Oral: Moist Mucosa Neck: Supple, No JVD Lungs: Diminished, Normal air movement, No rhonchi, No wheeze, No rales Cardiovascular: Regular rate, Regular Rhythm, Normal S1, Normal S2, No murmurs Abdomen: Soft, Non Tender, Non-Distended, No Hepato-splenomegaly Extremities: No edema, Capillary Refill Less than 3 Seconds Skin: Some ecchymosis over his left side from a fall while in the hospital no joint tenderness Musculoskeletal: No Tenderness to Palpation of Joints or Extremities Neurological: No focal neurological deficits, Motor Exam 5/5 strength throughout, Sensory exam intact to light touch and pain Psych/Mental Status: Normal Affect, Appropriate Medical Records Data Medical Nutrition Assessment Dietitian: Malnutrition Criteria Met Start: 05/22/24 12:24 Freq: Status: Active Protocol: Document 05/24/24 12:13 RMA (Rec: 05/24/24 12:13 RMA [id number]) Nutrition Malnutrition Evidence of Malnutrition Exists Yes Malnutrition (severe): Chronic,Social/Behavioral/ Environmental Evidenced By Suboptimal Energy Intake ( Severe),Weight Loss (Severe) Clinical Problem Acute Disease or Injury Related Malnutrition Etiology severe protein-calorie malnutrition in the context of chronic disease/social circumstance related to alcohol abuse and inadequate nutrient intake/nutrient-dense foods Signs/Symptoms as evidenced by BMI 22.6, PO intake meeting <50% of estimated nutritional needs x 1 month and ~10% unintentional weight loss x 6 past 1-2 months Status Active Problem Recommendation Dietitian Recommendations/Changes Continue liberal regular diet d/t signs and symptoms of malnutrition - change to CHO Control if blood glucose rises . Continue 4 oz glucerna shake 4x/day with medpass for increased nutrition if consumed. Adjust ONS as needed if PO declines at meals. Weight / BMI Weight Weight: 157 lb 6.561 oz Body Mass Index (BMI) 22.6 ABG / Lab / Microbiology Data 05/23/24 06:33 05/26/24 07:09 Laboratory: Laboratory Results - last 24 hr 05/26/24 07:09: Sodium 132 L, Potassium 4.1, Chloride 100, Carbon Dioxide 26.0, BUN 7, Creatinine 1.11, Estim Creat Clear Calc 67.90, Est GFR (MDRD) Af Amer 86, Est GFR (MDRD) Non-Af 71, BUN/Creatinine Ratio 6.3 L, Glucose 92, Calcium 8.4 L, Phosphorus 3.6, Albumin 2.6 L Meaningful Use Info Meaningful Use Meaningful Use Diagnoses (Choose all that apply): None applicable Ischemic Stroke Statin Dosing Therapy Reference: STATIN DOSE THERAPY REFERENCE: * Patients > 75 years receive moderate or high dose statin therapy. * Patients 75 years or YOUNGER should receive HIGH intensity statin dose unless contraindicated. You will be required to document reason for non-treatment if statin daily dose does not meet guidelines. HIGH DOSE STATIN THERAPY DAILY Atorvastatin > than or = to 40 mg Rosuvastatin > than or = to 20 mg Amlodipine + Atorvastatin > than or = to 2.5/40 mg Ezetimibe + Simvastatin 10/80 mg Simvastatin 80mg Discharge Plan Admission Admit Date/Time: 05/21/24 22:15 Attending Provider: Richie Ayala Primary Care Provider: Sudarshan Llanos Consulting Providers: Ruddy Galdamez; Wilber Jaeger Discharge Orders/Prescriptions Prescriptions: New Arthritis Pain Compound 2 click topical BID PRN PRNQty: 0 0RF Continued ondansetron 4 mg tablet,disintegrating 4 mg PO Q8H tizanidine 4 mg tablet 4 mg PO Q6H Qty: 12 0RF nitroglycerin [Nitrostat] 0.4 mg tablet, sublingual 0.4 mg sublingual Q5M PRN (Reason: chest pain) Qty: 3 0RF Rx Instructions: do not exceed 3 doses per episode mirtazapine 15 mg tablet 15 mg PO QHS Qty: 3 0RF losartan 100 mg tablet 100 mg PO DAILY Qty: 3 0RF albuterol sulfate 90 mcg/actuation HFA aerosol inhaler 2 puff inhalation Q6H PRN PRN (Reason: shortness of breath or wheezing) famotidine 20 mg tablet 20 mg PO QHS PRN PRN (Reason: GERD) potassium chloride 10 mEq tablet extended release 10 meq PO DAILY sertraline 50 mg tablet 50 mg PO DAILY hydroxyzine HCl 25 mg tablet 25 mg PO Q6H PRN (Reason: itching) Patient Comments: TAKE ONE TABLET BY MOUTH EVERY 6 HOURS NEEDED FOR itching ketoconazole 2 % shampoo 1 applic TOPICAL DAILY PRN Patient Comments: USE to WASH scalp daily, LEAVE on FOR 5 MINUTES, THEN rinse DIRECTED Discontinued metformin 500 mg tablet 500 mg PO BID Qty: 6 0RF pravastatin 40 mg tablet 40 mg PO DAILY Qty: 3 0RF levothyroxine [Synthroid] 75 mcg tablet 75 mcg PO DAILY Qty: 3 0RF pantoprazole 40 mg tablet,delayed release (DR/EC) 40 mg PO DAILY Qty: 3 0RF loratadine 10 mg tablet 10 mg PO DAILY Qty: 3 0RF hydroxyzine pamoate 25 mg capsule 50 mg PO BID Qty: 6 0RF olmesartan 40 mg tablet 40 mg PO DAILY Referrals / Follow Up: Sudarshan Llanos MD [Primary Care Provider] - Disposition Disposition (needs filled in before D/C Order can be placed): [facility] Charges/Coding Visit Charges Inpatient E&M: 86735 Disch Hosp >30min
--- NOTE | 2024-05-26 11:34 | CASEMGMT ---
Discharge Planning Discharge orders, signed med list, and transport time sent to [facility] via [facility]. Physicians will transport patient by wheelchair at 11:30a. Nursing, SW, and patient updated. VM left for patients [id number] POA (Piotr). Arabella Guerra DC Planning Asst.
[2024-05-26 11:59] VITALS: BP 80/52; PULSE 73; RESP 18; TEMP 36.6; O2SAT 96
[2024-05-26] MEDS: HYDROcodone Bitartrate/Apap 5/325 Tablet PO (12:00)
--- NOTE | 2024-05-26 13:12 | NURSING ---
Delayed discharge due to low bp.
--- NOTE | 2024-05-26 13:39 | CHAPLAIN ---
Type of Pastoral Visit ___ Initial Visit _x__ Follow-up Visit ___ On-call Visit ___ General Patient Visit ___ Spiritual Assessment ___ Family Conference ___ Bereavement ___ Rapid Response ___ Code Blue ___ Other (describe below) Pastoral Care Referral From _x__ Patient ___ Family ___ Nurse ___ Physician ___ [place] Turner ___ Oven Loader ___ Other (describe below) Sacrament/Intervention _x__ Active listening ___ Anointing ___ Latter Day ___ Bereavement ___ Communion ___ Zari exploration ___ ___ Life review _x__ Prayer ___ Reconciliation ___ Sacrament of Sick _x__ Supportive presence ___ Wedding ___ Other (describe below) Pastoral Comments follow up to this patient that was being moved for transport; however pt was told now that he cannot leave hospital due to his BP and thus the transport team put him back to bed; pt is not frustrated and expressive of his displeasure over decisions and being told he must stay in bed; pt is hungry and states that he wants to eat but that he cannot eat in bed; pt continues his protest over decisions concerning his health needs; this substitute teacher sat at bedside with the patient to encourage and support him; offered prayer and ongoing presence; pt continued his verbal expression of frustration and would not eat at this time;
[2024-05-26 15:18] VITALS: BP 90/55; PULSE 91; RESP 18; O2SAT 95
[2024-05-26 16:40] VITALS: BP 105/68; PULSE 79
== END 2024-05-26 16:45 | DRG 896 ==
LOC: ED 22:11 → MS3 22:30
PROVIDERS: Hospitalist; Emergency Provider Emergency Medicine; PCP Internal Medicine; Visit Provider Family Medicine
DX: F10.139 Alcohol abuse with withdrawal, unspecified (principal); E43 Unspecified severe protein-calorie malnutrition; E87.1 Hypo-osmolality and hyponatremia; D69.6 Thrombocytopenia, unspecified; D63.8 Anemia in other chronic diseases classified elsewhere; E11.22 Type 2 diabetes mellitus with diabetic chronic kidney disease; E11.40 Type 2 diabetes mellitus with diabetic neuropathy, unspecified; N18.30 Chronic kidney disease, stage 3 unspecified; K70.10 Alcoholic hepatitis without ascites; J44.9 Chronic obstructive pulmonary disease, unspecified; E03.9 Hypothyroidism, unspecified; I12.9 Hypertensive chronic kidney disease with stage 1 through stage 4 chronic kidney disease, or unspecified chronic kidney disease; F32.A Depression, unspecified; K21.9 Gastro-esophageal reflux disease without esophagitis; E78.5 Hyperlipidemia, unspecified; G47.33 Obstructive sleep apnea (adult) (pediatric); F41.9 Anxiety disorder, unspecified; W07.XXXA Fall from chair, initial encounter; S80.12XA Contusion of left lower leg, initial encounter; S40.022A Contusion of left upper arm, initial encounter; F10.129 Alcohol abuse with intoxication, unspecified; R74.01 Elevation of levels of liver transaminase levels; Z79.51 Long term (current) use of inhaled steroids; Z79.899 Other long term (current) drug therapy; Z79.84 Long term (current) use of oral hypoglycemic drugs; Y90.8 Blood alcohol level of 240 mg/100 ml or more; Z68.22 Body mass index [BMI] 22.0-22.9, adult
CPT/HCPCS: 36415; 70450; 72125; 80048; 80053; 80069; 80307; 82077; 82962; 83735; 84100; 85025; 85027; 97110; 97162; 97166; 97530; 97535; 97802; 99285; J7030; J7040; A4216

== ENCOUNTER 2025-05-07 23:02 | Inpatient (IN) | payer MEDICARE, MEDICAID, SELFPAY ==
[2025-05-07 23:03] VITALS: BP 158/91; PULSE 106; RESP 18; TEMP 36.6; O2SAT 97
--- NOTE | 2025-05-07 23:08 | CT_ITS ---
PROCEDURE: BRAIN/HEAD WITHOUT CONTRAST 05/07/2025 REASON FOR EXAM: FALL/TRAUMA, HEADACHE TECHNIQUE: BRAIN/HEAD WITHOUT CONTRAST Coronal and Sagittal reconstruction series were provided. One or more dose reduction techniques were used (e.g., Automated exposure control, adjustment of the mA and/or kV according to patient size, use of iterative reconstruction technique. RADIATION DOSE SUMMARY: CTDlvol: 45 mGy DLP: 816 mGycm COMPARISON: 05/21/2024 FINDINGS: Mild atrophy. No acute abnormal brain densities. No intracranial hemorrhage. No hydrocephalus or midline shift. No acute scalp or skull pathology. Clear sinuses. Unremarkable orbits. CT/Brain/Head without Contrast IMPRESSION: No acute findings Reading Location: [place] [address]
--- NOTE | 2025-05-07 23:10 | EX.ED.SAOD ---
HPI History of Present Illness Chief Complaint: ETOH Intox Informant: patient Narrative Narrative: 65-year-old male requesting alcohol detox. States he has not been in detox for a while, it was 1 year ago according to records, at least here. He states other than the occasional marijuana he does no other illicit substances. He states he drinks 24 beers per day in addition to about 6 shots of week cinnamon whiskey. States he always has the shakes in the morning when he wakes up until he starts drinking. His last drink was shortly prior to arrival, a beer. [facility] Medical History (Updated 05/08/25 @ 00:[address] Eddy Haddad MD) Marijuana smoker Alcohol abuse Diabetes Rheumatoid arthritis Osteoporosis Kidney disease Pancreatitis Hepatitis BiPAP (biphasic positive airway pressure) dependence CPAP (continuous positive airway pressure) dependence Smoker COPD (chronic obstructive pulmonary disease) Migraines Seizures Alcohol dependence Diabetic neuropathy Muscle weakness Personal history of colonic polyps Deficiency of other specified B group vitamins Hyperkalemia Unilateral inguinal hernia PTSD (post-traumatic stress disorder) Abdominal pain Renal stone Slow transit constipation Dysphagia Thrombocytopenia Disorder of teeth and supporting structures Diverticulosis SHAYLA (obstructive sleep apnea) Enlarged prostate without urinary obstruction Insomnia Bilateral foot pain GERD (gastroesophageal reflux disease) Elevated LFTs Gait abnormality Knee pain Chronic pain Anxiety Asthma Glaucoma Localized edema Gout Biotin-dependent carboxylase deficiency, unspecified 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 Lumbago with sciatica HLD (hyperlipidemia) HTN (hypertension) Chronic hepatitis C Alcohol use disorder Diarrhea Nausea and vomiting Anemia Type 2 diabetes mellitus Depression Adrenogenital disorder, unspecified Chronic kidney disease, stage 3 Liver cirrhosis Emphysema lung History of syncope Gallbladder sludge Home Medications Medication Instructions Recorded Last Taken Type ondansetron 4 mg disintegrating 4 mg PO Q8H 11/11/22 04/02/24 History tablet losartan 100 mg tablet 100 mg PO DAILY #3 tabs 04/08/24 Unknown Rx mirtazapine 15 mg tablet 15 mg PO QHS #3 tabs 04/08/24 Unknown Rx nitroglycerin 0.4 mg sublingual 0.4 mg sublingual Q5M PRN chest 04/08/24 Unknown Rx tablet (Nitrostat) pain #3 tabs tizanidine 4 mg tablet 4 mg PO Q6H #12 tabs 04/08/24 Unknown Rx albuterol sulfate 90 mcg/actuation 2 puff inhalation Q6H PRN PRN 05/02/24 Unknown History aerosol inhaler shortness of breath or wheezing famotidine 20 mg tablet 20 mg PO QHS PRN PRN GERD 05/03/24 Unknown History potassium chloride 10 mEq 10 meq PO DAILY 05/03/24 Unknown History tablet,extended release sertraline 50 mg tablet 50 mg PO DAILY 05/03/24 Unknown History hydroxyzine HCl 25 mg tablet 25 mg PO Q6H PRN itching 05/24/24 Unknown History ketoconazole 2 % shampoo 1 applic topical DAILY PRN HEAD 05/24/24 Unknown History SORES Arthritis Pain Compound 2 click topical BID PRN PRN ##0 05/26/24 Unknown Rx Allergy/AdvReac Type Severity Reaction Status Date / Time allopurinol Allergy Intermediate Other Verified 05/07/25 23:03 codeine Allergy Intermediate Other Verified 05/07/25 23:03 Penicillins Allergy Intermediate Other Verified 05/07/25 23:03 Family History Father Prostate cancer History of quadruple bypass Myocardial infarction Surgical History History of cholecystectomy H/O oral surgery Previous back surgery Social History Smoking Status: Current every day smoker tobacco type: cigarettes and smokeless tobacco alcohol intake: current alcohol intake frequency: 3 or more drinks per day Alcohol type: beer details: Averages 18 beers per day ROS ROS ED Constitutional Constitutional ED: Denies chills or fever(s) Eyes Eyes: Denies change in vision or diplopia ENT ENT ED: Denies rhinorrhea or sore throat Cardiovascular Cardiovascular: Denies chest pain or palpitations Respiratory/Chest Respiratory/Chest: Denies cough or dyspnea Gastrointestinal Gastrointestinal: Reports diarrhea, hemorrhoids and other Details: chronic upper abd soreness, no changes now ; Denies early satiety, hematemesis, hematochezia, melena, nausea or vomiting Genitourinary Genitourinary ED: Denies dysuria or hematuria Musculoskeletal Musculoskeletal: Denies back pain or neck pain Integumentary Denies abscess or rash Neurologic Neurologic: Reports headache(s); Denies paresthesias or weakness Psychiatric Psychiatric: Denies anxiety or suicidal thoughts EXAM Physical Exam Const Vital Signs: 05/07/25 23:03 05/07/25 23:12 Temperature 97.8 F 97.8 F Temperature Source Oral Oral Pulse Rate 106 H 106 H Respiratory Rate 18 18 Blood Pressure 158/91 H 158/91 H Blood Pressure Mean 113 113 Blood Pressure Source Monitor Blood Pressure Position Semi-Fowlers Blood Pressure Location Left Arm Pulse Ox 97 97 Oxygen Delivery Method Room Air Room Air Positive well nourished and well developed Constitutional Narrative: Intoxicated pleasant cooperative General Appearance ED: well developed and NAD HEENT Reports moist mucous membranes HEENT Narrative: Bilateral periorbital ecchymosis, yellowed/subacute, as well as similar nontender contusion forehead and nasal bridge without crepitance or deformity or evidence of epistaxis; no Rosario sign, no CSF otorhinorrhea, no hemotympanum. normocephalic and atraumatic Eyes PERRL and EOMs intact bilaterally Neck full ROM and supple Thyroid: Negative for tender Resp normal respiratory effort and clear to auscultation bilaterally Cardio regular rate, regular rhythm and no murmurs GI non-tender and non-distended Auscultation: normoactive bowel sounds Palpation: soft Back/Spine no CVA tenderness General Back: other FROM Extremity normal to inspection General Extremety ED: Negative for edema, pulses abnormal or tenderness General Extremity: Negative for edema or pulses abnormal Neuro oriented x3, CN's II-XII intact bilaterally and no sensory deficits noted Sensorium / Orientation: awake and alert Motor Exam: strength 5/5 throughout Psych thought process normal Skin no rashes or lesions noted and no wounds MDM MDM MDM Narrative Medical decision making narrative: Due to his periorbital ecchymosis bilaterally obtain a CT of the head to rule out intracranial injury. I reviewed the images and the result which I agree with, it is negative. He does have a contusion on the forehead, and given the lack of a basilar skull fracture on CT, his periorbital ecchymosis is likely due to simply to traumatic hematoma settling down around his preseptal orbital areas with gravity. His facial exam otherwise is fairly benign. The rest of his labs are unremarkable except for hyponatremia at 124. He has had no seizures that he knows of. His alcohol level is high right now I gave him a dose of phenobarbital to get things started to keep him from starting that withdrawal, started him on IV slow saline, and discussed with hospitalist for admission. Lab Data Attestation: I reviewed the patient's lab results. Labs: Laboratory Results - last 24 hr 05/07/25 05/07/25 23:30 23:40 WBC 9.6 RBC 4.08 L Hgb 13.1 Hct 36.2 L MCV 88.7 MCH 32.1 H MCHC 36.2 H RDW Std Deviation 46.7 H RDW Coeff of Heidi 14.5 Plt Count 129 L MPV 9.2 Immature Gran % (Auto) 1.000 H Neut % (Auto) 45.2 L Lymph % (Auto) 46.2 H [place] % (Auto) 6.7 Eos % (Auto) 0.6 Baso % (Auto) 0.3 Absolute Neuts (auto) 4.3 Absolute Lymphs (auto) 4.43 Nucleated RBC % 0 PT 13.7 INR 1.0 Sodium 124 L Potassium 3.6 Chloride 85 L Carbon Dioxide 19.1 L Anion Gap 20 H BUN 9 Creatinine 1.02 Est GFR (MDRD) Non-Af 82 BUN/Creatinine Ratio 8.6 L Glucose 98 Calcium 9.0 Total Bilirubin 0.69 AST 22 ALT 12 Alkaline Phosphatase 89 Total Protein 7.1 Albumin 4.4 Globulin 2.8 Albumin/Globulin Ratio 1.6 Urine Opiates Screen NEGATIVE U Buprenorphine Qual NEGATIVE Ur Oxycodone Screen NEGATIVE Urine Methadone Screen NEGATIVE Urine Fentanyl Screen NEGATIVE Ur Barbiturates Screen NEGATIVE Ur Phencyclidine Scrn NEGATIVE Ur Amphetamines Screen NEGATIVE U Benzodiazepines Scrn NEGATIVE Urine Cocaine Screen NEGATIVE U Cannabinoids Screen PRESUMPTIVE POSITIVE Ethyl Alcohol 272.0 H Radiography Diagnostic Testing: Clinical Impression(s) from Imaging Studies Brain CT 05/07/25 23:08 IMPRESSION: No acute findings Reading Location: [place] [address] Management Discussion w/another healthcare provider: Hospitalist Discharge Plan Triage Chief Complaint: ETOH Intox ED Provider: Eddy Haddad Dx/Rx/DC Orders Clinical Impression: Acute hyponatremia, Desire for detoxification, Alcohol dependence Prescriptions: No Action ondansetron 4 mg tablet,disintegrating 4 mg PO Q8H tizanidine 4 mg tablet 4 mg PO Q6H Qty: 12 0RF nitroglycerin [Nitrostat] 0.4 mg tablet, sublingual 0.4 mg sublingual Q5M PRN (Reason: chest pain) Qty: 3 0RF Rx Instructions: do not exceed 3 doses per episode mirtazapine 15 mg tablet 15 mg PO QHS Qty: 3 0RF losartan 100 mg tablet 100 mg PO DAILY Qty: 3 0RF albuterol sulfate 90 mcg/actuation HFA aerosol inhaler 2 puff inhalation Q6H PRN PRN (Reason: shortness of breath or wheezing) famotidine 20 mg tablet 20 mg PO QHS PRN PRN (Reason: GERD) potassium chloride 10 mEq tablet extended release 10 meq PO DAILY sertraline 50 mg tablet 50 mg PO DAILY hydroxyzine HCl 25 mg tablet 25 mg PO Q6H PRN (Reason: itching) Patient Comments: TAKE ONE TABLET BY MOUTH EVERY 6 HOURS NEEDED FOR itching ketoconazole 2 % shampoo 1 applic TOPICAL DAILY PRN Patient Comments: USE to WASH scalp daily, LEAVE on FOR 5 MINUTES, THEN rinse DIRECTED Arthritis Pain Compound 2 click topical BID PRN PRNQty: 0 0RF Primary Care Provider: Sudarshan Llanos Referrals: Sudarshan Llanos MD [Primary Care Provider] - Print Language: Ugandan Disposition Disposition: Acute Care Hospital [facility]
[2025-05-07 23:12] VITALS: BP 158/91; PULSE 106; RESP 18; TEMP 36.6; O2SAT 97
--- NOTE | 2025-05-07 23:15 | ED.RN ---
Unable to obtain medication list from the patient d/t the patient being a poor historian and intoxicated. aware.
--- OUTSIDE RECORDS SUMMARY | 2025-05-07 23:59 | XMS RPT_ITS | CCD ---
Author Organization [facility] Care Team Providers Care Steel Handler Name Role Phone ABEL HOLDER Unavailable Unavailable AN NEISHAABDI DAS Unavailable Unavailable ABEL HOLDER Unavailable Unavailable ABEL HOLDER Unavailable Unavailable JADA OCONNOR () Unavailable Unavailable Jani Quezada Primary Care Provider [phone] Jani Quezada Primary Care Provider [phone] Jani Quezada MD Primary Care Provider Jani Quezada Primary Care Provider Jani Quezada Referring Unavailable Hany Ybarra Attending Unavailable Jani Quezada Primary Care Unavailable Ashlyn Atkinson Attending Unavailable Jani Quezada Referring Unavailable Jani Quezada Primary Care Unavailable Jani Quezada Primary Care Provider Ana Callaway MD Unavailable [phone] Jani Quezada Primary Care Provider [phone] Ana Callaway MD Unavailable Lea Koehler RN Unavailable Unavailable JANI QUEZADA Primary Care UnavailJANI Pringle Referring Unavaila MUNIRA Martin Attending Unavailable MUNIRA STALEY Referring Unavailable JANI QUEZADA Primary Care Unavaila MUNIRA Martin Referring Unavailable JANI QUEZADA Primary Care Unavaila arleen STALEY, MUNIRA Referring Unavailable JANI QUEZADA Primary Care Unavaila YUE Sosa Attending Unavaila JANI Serna Primary Care Unavailable Kevin Ramires Attending Unavailabl e Katsaros, Peter Primary Care Unavailable Jopperi, Ruddy Admitting Unavailable Jopperi, Ruddy Consulting Unavailable Katsaros, Peter Primary Care Unavailable Richie Ayala Attending Unavailable Wilber Jaeger Consulting Unavailable Jopperi, Ruddy Admitting Unavailable Jopperi, Ruddy Consulting Unavailable Wilber Jaeger Attending Unavailable Katsaros, Peter Primary Care Unavailable Heide Wilber Consulting Unavailable Richie Ayala Attending Unavailable Richie Ayala Consulting Unavailable Katsaros, Peter Primary Care Unavailable Ghulam, Cody Attending Unavailable Ghulam, Cody Consulting Unavailable Ghulam, Cody Admitting Unavailable Zulma Walsh Attending Unavailable NicoTommyyn Consulting Unavailable Jopperi, Ruddy Attending Unavailable Katsaros, Peter Primary Care Unavailable Ghulam, Cody Consulting Unavailable Ghulam, Cody Admitting Unavailable Tommy Walshyn Attending Unavailable Katsaros, Peter Primary Care Unavailable Rosa Guevara Attending Unavailable Katsaros, Peter Primary Care Unavailable Rosa Guevara Attending Unavailable Katsaros, Peter Primary Care Unavailable Daniel Knapp Attending Unavailable KATSAROS, PETER Primary Care Unavailable LISA GARG Admitting Unavailable EMILIANO CHURCH Attending Unavailable NIR CRUZ Consulting Unavailable KATSAROS, PETER Primary Care Unavailable KIEL KING Admitting Unavailable CARMEN JERONIMO Consulting Unavailable CED KOENIG Attending Unavailable KATSAROS, PETER Primary Care Unavailable HAYES SCOTT Admitting Unavailable KINGSLEY WHITE Consulting Unavailable JOSE MARIA ABAD Attending Unavailable QUYNH MCKEON Referring Unavailable KATSAROS, PETER Primary Care Unavailable HAYES CASTANEDA Admitting Unavailable JOSÉ LUIS PEREZ Consulting Unavailable CARMEN JERONIMO Attending Unavailable KATSAROS, PETER Primary Care Unavailable RHIANNON BARKER Admitting Unavailable FLAVIO SHERMAN Consulting Unavailable LAURA STEVENS Attending Unavailable KATSAROS, PETER Primary Care Unavailable JÚNIOR LO Attending Unavailable KATSAROS, PETER Primary Care Unavailable MARJAN EDWARDS Admitting Unavailable EDITA SALGUERO Consulting Unavailable VAISHALI RICO Attending Unavailable FREDDIE KELLY Consulting Unavailable JÚNIOR LO Referring Unavailable KATSAROS, PETER Primary Care Unavailable JÚNIOR LO Referring Unavailable KATSAROS, PETER Primary Care Unavailable ASHLEY BELL Referring Unavailable KATSAROS, PETER Primary Care Unavailable ASHLEY BELL Referring Unavailable KATSAROS, PETER Primary Care Unavailable JÚNIOR LO Referring Unavailable JANI QUEZADA Primary Care Unavailable Allergies Allergy Classification Reported Allergen(s) Allergy Type Date of Onset Reaction(s) Facility Allopurinol (1 source) Allopurinol Drug Allergy 7 Other [facility] Opioid Agonists (1 source) Codeine Drug Allergy 3 Nausea Only [facility] Penicillins (antibiotic) (1 source) Penicillin G Drug Allergy 7 Swelling [facility] (20 sources) allopurinol; Translations: [ALLOPURINOL] Drug Allergy 7 Other: See Comments, Other [facility] (6 sources) penicillin; Translations: [PENICILLIN] Drug Allergy 7 Swelling [facility] (6 sources) Penicillins; Translations: [PENICILLINS] Propensity to adverse reactions to drug 7 [place], [place] (20 sources) Penicillin G Drug Allergy 7 Swelling [facility] (20 sources) Codeine; Translations: [CODEINE] Drug Allergy 3 Nausea Only [facility] (1 source) Codeine Drug Allergy [address] [facility] Repository (1 source) Penicillins Drug allergy (disorder) [address] [facility] Repository (4 sources) Lactose (non-medical use) Propensity to adverse reactions 4 [facility] Medications Current Medications Medication Drug Class(es) Dates Sig (Normalized) Sig (Original) acetaminophen 325 mg / oxyCODONE hydrochloride 7.5 mg oral tablet (17 sources) Opioid Agonist Start: 10-26-2023 End: 10-31-2023 take 1 tablet by mouth every six hours as needed for pain oxyCODONE-acetami nophen (Percocet) 7.5-325 MG tablet Indications: Chronic pain syndrome Take 1 tablet by mouth every 6 hours as needed for severe pain (7-10) for up to 5 days. 15 tablet 0 10/26/2023 10/31/2023 Active Start: 10-26-2023 End: 10-27-2023 take 1 tablet by mouth every six hours as needed for pain oxyCODONE-acetaminophen (Percocet) 7.5-3 25 MG per tablet 1 tablet Start: 07-03-2023 End: 07-05-2023 take 1 tablet by mouth every six hours as needed for pain oxyCODONE-acetaminophen (Percocet) 5-325 MG per tablet 1 tablet Start: 01-09-2023 End: 01-09-2023 oxyCODONE-acetaminophen (Per cocet) 5-325 MG per tablet 1 tablet Start: 01-05-2023 End: 01-12-2023 take 1 tablet by mouth every four hours as needed for pain oxyCODONE-acetaminophen (Percocet) 10-32 5 MG tablet Indications: RUQ pain Take 1 tablet by mouth every 4 hours as needed for severe pain (7-10) for up to 7 days. 42 tablet 0 01/05/2023 01/12/2023 Active Start: 06-06-2022 End: 06-07-2022 oxyCODONE-acetaminophen (PER COCET) 5-325 MG per tablet Indications: Spinal stenosis of lumbar region, unspecified whether neurogenic claudication present Take 2 tablets by mouth every 6 hours as needed for Pain for up to 1 day. Intended supply: 5 days. Take lowest dose possible to manage pain 20 tablet 0 06/06/2022 06/07/2022 Active Start: 12-23-2017 End: 06-06-2022 oxyCODONE-acetaminophen (PER COCET) 10-325 MG per tablet TAKE ONE TABLET EVERY 4 TO 6 HOURS NEEDED FOR PAIN. DO not TAKE more THAN FIVE PER DAY. 0 12/23/2017 06/06/2022 Discontinued (Stop Taking at Discharge) Start: 06-20-2017 End: 06-25-2022 take 1 tablet by mouth every six hours as needed oxyCODONE-acetaminophen (PERCOCET) 10-32 5 mg tablet Take 1 tablet by mouth every 6 hours as needed for Pain. 50 tablet 0 06/20/2017 06/25/2022 Discontinued Comment on above: Take 1 tablet by remy every 6 hours as needed for Pain. famotidine 20 mg oral tablet (20 sources) Histamine-2 Receptor Antagonist Start: 04-13-2023 End: 04-14-2024 take 1 tablet by mouth twice daily famotidine (Pepcid) 20 MG tablet Take 1 tablet (20 mg) by mouth 2 times daily. 60 tablet 04/15/2023 Active Start: 04-02-2023 End: 04-02-2023 famotidine (Pepcid) injectio n 20 mg Start: 01-05-2023 End: 01-05-2023 famotidine (Pepcid) tablet 2 0 mg levothyroxine sodium 0.075 mg oral tablet (20 sources) l-Thyroxine Start: 07-22-2024 End: 07-22-2025 take 1 tablet by mouth once daily before breakfast levothyroxine (Synthroid, Levoxyl) 75 MCG tablet Indications: 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 Take 1 tablet (75 mcg) by mouth every morning (before breakfast). 30 tablet 07/22/2024 07/22/2025 Active Start: 04-23-2024 End: 04-30-2024 take 75 ug by mouth once daily before breakfast 75 mcg, Oral, Daily before breakfast, First dose on 04/23/24 at 0600, Tube feeding (TF) interaction, obtain physician order to manage, recommend holding TF for 30 minutes before and after dose. Start: 01-21-2024 End: 01-26-2024 levothyroxine (Synthroid, Le voxyl) tablet 75 mcg Start: 10-21-2023 End: 10-27-2023 take 50 ug by mouth once daily before breakfast 50 mcg, Oral, Daily before breakfast, First dose on Thu10/21/23 at 0700, Tube feeding (TF) interaction, obtain physician order to manage, recommend holding TF for 30 minutes before and after dose. Start: 07-01-2023 End: 07-05-2023 take 50 ug by mouth once daily before breakfast 50 mcg, Oral, Daily before breakfast, First dose on Thu07/01/23 at 0700 Tube feeding (TF) interaction, obtain physician order to manage, recommend holding TF for 30 minutes before and after dose. Start: 04-11-2023 End: 04-15-2023 take 50 ug by mouth once daily before breakfast 50 mcg, Oral, Daily before breakfast, First dose on Thu04/11/23 at 0700 Tube feeding (TF) interaction, obtain physician order to manage, recommend holding TF for 30 minutes before and after dose. Start: 04-03-2023 End: 04-07-2023 take 50 ug by mouth once daily before breakfast 50 mcg, Oral, Daily before breakfast, First dose on Thu04/03/23 at 1000 Tube feeding (TF) interaction, obtain physician order to manage, recommend holding TF for 30 minutes before and after dose. Start: 03-30-2023 End: 10-27-2023 take 1 tablet by mouth once daily before breakfast levothyroxine (Synthroid, Levoxyl) 75 MCG tablet Take 75 mcg by mouth every morning (before breakfast). TAKE ON AN EMPTY STOMACH 0 03/30/2023 10/27/2023 Discontinued (Stop taking at discharge) Start: 02-11-2023 End: 02-14-2023 take 50 ug by mouth once daily before breakfast 50 mcg, Oral, Daily before breakfast, First dose on Thu02/11/23 at 0700 Tube feeding (TF) interaction, obtain physician order to manage, recommend holding TF for 30 minutes before and after dose. Start: 12-23-2022 End: 12-25-2022 take 50 ug by mouth once daily before breakfast 50 mcg, Oral, Daily before breakfast, First dose on Thu12/23/22 at 0700 Tube feeding (TF) interaction, obtain physician order to manage, recommend holding TF for 30 minutes before and after dose. Start: 10-14-2022 End: 11-06-2022 take 1 tablet by mouth once daily levothyroxine (Synthroid, Levoxyl) 75 MCG tablet Take 75 mcg by mouth daily. 0 10/14/2022 11/06/2022 Discontinued Start: 06-07-2022 take 1 tablet by remy th once daily levothyroxine (SYNTHROID) 50 MCG tablet Take 1 tablet by mouth Daily 30 tablet 0 06/07/2022 Active Start: 09-05-2019 End: 06-25-2022 take 1 tablet by mouth once daily levothyroxine (SYNTHROID) 75 mcg tablet Take 75 mcg by mouth once daily. 0 09/05/2019 06/25/2022 Discontinued Start: 04-13-2017 End: 07-21-2024 take 1 tablet by mouth once daily levothyroxine (Synthroid, Levoxyl) 50 MCG tablet TAKE 1 TABLET BY MOUTH DAILY 30 tablet 0 06/06/2022 06/06/2023 Active Start: 04-13-2017 End: 01-28-2023 levothyroxine (Synthroid, Le voxyl) 75 MCG tablet Every 24 hours. 0 04/13/2017 01/28/2023 Discontinued (Duplicate order) Start: 04-13-2017 End: 06-06-2022 take 1 tablet by mouth once daily levothyroxine (SYNTHROID) 100 mcg tablet Take 100 mcg by mouth once daily. 0 04/13/2017 Active Comment on above: Take 100 mcg by mout h once daily. Take 75 mcg by mouth once daily. lidocaine 0.04 mg/mg medicated patch (20 sources) Antiarrhythmic, Amide Local Anesthetic Start: 3 End: 3 apply 1 dose transdermal route once daily Lidocaine 4 % patch Place 1 patch on the skin daily. Do not start before April 16, 2023. 15 patch 0 04/16/2023 Active Start: 06-04-2022 lidocaine 4 % external patch 1 patch Start: 11-18-2019 End: 02-10-2023 lidocaine (Xylocaine) 2 % so lution End: 02-10-2023 lidocaine (Xylocaine) 5 % oi ntment every 8 hours. PRN 0 02/10/2023 Discontinued magnesium chloride 535 mg delayed release oral tablet (20 sources) Start: 01-19-2024 End: 07-10-2024 take 1 tablet by mouth once daily at breakfast magnesium chloride 64 MG EC tablet Indications: Hypomagnesemia Take 1 tablet (64 mg) by mouth daily (with breakfast). 60 tablet 01/21/2024 Active melatonin 5 mg oral tablet (4 sources) Start: 01-21-2024 End: 02-25-2024 take 1 tablet by mouth once daily as needed for sleep melatonin 5 MG tablet Take 1 tablet (5 mg) by mouth Nightly as needed (sleep). 30 tablet 0 01/26/2024 02/25/2024 Active miconazole nitrate 0.02 mg/mg topical powder (4 sources) Azole Antifungal Start: 01-15-2024 End: 02-19-2024 miconazole (Micotin) 2 % powder Apply topically 2 times daily. 85 g 0 01/20/2024 02/19/2024 Active nicotine 2 mg oral lozenge (20 sources) Cholinergic Nicotinic Agonist Start: 01-20-2024 End: 07-10-2024 nicotine polacrilex (Commit) 2 MG lozenge Dissolve 1 lozenge (2 mg) in the mouth every 2 hours as needed for smoking cessation. 100 lozenge 01/20/2024 Active Start: 10-27-2023 End: 04-30-2024 nicotine (Nicoderm, Step 1) 21 MG/24HR patch Place 1 patch on the skin daily. 10/27/2023 04/30/2024 Discontinued (Stop taking at discharge) Start: 10-21-2023 End: 10-27-2023 nicotine (Nicoderm, Step 1) 21 MG/24HR patch 1 patch Start: 07-01-2023 End: 07-05-2023 nicotine (Nicoderm, Step 1) 21 MG/24HR patch 1 patch nystatin [id number] unt/ml topical cream (4 sources) Polyene Antifungal Start: 01-20-2024 End: 02-19-2024 nystatin (Mycostatin) cream Apply topically 2 times daily. 30 g 0 01/20/2024 02/19/2024 Active Start: 01-15-2024 End: 01-25-2024 nystatin (Mycostatin) cream prazosin 5 mg oral capsule (1 source) alpha-Adrenergic Barbara Start: 08-01-2024 End: 08-01-2025 take 1 capsule by mouth once daily prazosin (Minipress) 5 MG capsule Indications: Nightmares Take 1 capsule (5 mg) by mouth Nightly. 30 capsule 08/01/2024 08/01/2025 Active QUEtiapine 100 mg oral tablet (1 source) Atypical Antipsychotic Start: 08-01-2024 take 1 tablet by mouth three times daily QUEtiapine (SEROquel) 100 MG tablet Indications: anxiety Take 1 tablet (100 mg) by mouth 3 times daily. 90 tablet 08/01/2024 Active sertraline 50 mg oral tablet (20 sources) Serotonin Reuptake Inhibitor Start: 07-22-2024 take 3 tablets by mouth once daily sertraline (Zoloft) 50 MG tablet Indications: Major Depressive Disorder Take 3 tablets (150 mg) by mouth daily. 07/22/2024 Active Start: 07-10-2024 End: 07-09-2024 take 1 tablet by mouth once daily sertraline (Zoloft) 100 MG tablet Take 1 tablet (100 mg) by mouth daily. 07/10/2024 07/09/2024 Discontinued Start: 07-10-2024 End: 07-10-2025 take 1 tablet by mouth once daily sertraline (Zoloft) 100 MG tablet Take 1 tablet (100 mg) by mouth daily. Do not start before July 10, 2024. 30 tablet 11 07/10/2024 07/10/2025 Suspended Start: 07-09-2024 End: 07-10-2024 take 100 mg by mouth once daily 100 mg, Oral, Daily, F irst dose (after last modification) on 07/09/24 at 0900 Start: 04-25-2024 End: 07-10-2024 take 1 tablet by mouth once daily sertraline (Zoloft) 50 MG tablet Take 1 tablet (50 mg) by mouth daily. 30 tablet 1 04/30/2024 07/10/2024 Discontinued (Stop taking at discharge) Start: 03-09-2024 End: 03-09-2024 sertraline (Zoloft) tablet 5 0 mg sodium chloride flush 0.9 % injection 3 mL (2 sources) Start: 05-15-2022 sodium chlorid e flush 0.9 % injection 3 mL Start: 06-24-2020 sodium chlorid e flush 0.9 % injection 3 mL spironolactone 25 mg oral tablet (16 sources) Aldosterone Antagonist Start: 06-10-2024 End: 07-10-2024 take 1 tablet by mouth once daily in the morning spironolactone (Aldactone) 25 MG tablet Indications: Hypertension Take 25 mg by mouth every morning. 06/10/2024 Active tamsulosin hydrochloride 0.4 mg oral capsule (20 sources) alpha-Adrenergic Barbara Start: 06-25-2020 End: 07-10-2024 take 1 capsule by mouth once daily tamsulosin (Flomax) 0.4 MG 24 hr capsule Indications: Benign Prostatic Hypertrophy Take 0.4 mg by mouth daily. 01/27/2022 Active End: 01-28-2023 tamsulosin (Flomax) 0.4 MG 2 4 hr capsule Every 24 hours. 0 01/28/2023 Discontinued tiZANidine 4 mg oral tablet (20 sources) Central alpha-2 Adrenergic Agonist Start: 01-20-2024 End: 04-30-2024 take 1 tablet by mouth every six hours as needed tiZANidine (Zanaflex) 4 MG tablet Take 1 tablet (4 mg) by mouth every 6 hours as needed for muscle spasms for up to 10 days. 30 tablet 01/26/2024 Active traZODone hydrochloride 50 mg oral tablet (3 sources) Serotonin Reuptake Inhibitor Start: 07-21-2024 take 1 tablet by mouth once daily as needed for sleep traZODone (Desyrel) 50 MG tablet Indications: Insomnia Take 1 tablet (50 mg) by mouth Nightly as needed for sleep. 07/21/2024 Active Start: 04-02-2023 End: 04-07-2023 traZODone (Desyrel) tablet 1 00 mg Completed/Discontinued Medications Medication Drug Class(es) Dates Sig (Normalized) Sig (Original) acetaminophen 500 mg oral tablet (20 sources) Start: 07-05-2024 End: 07-10-2024 take 1 tablet by mouth every six hours as needed for pain and fever 500 mg, Oral, Every 6 hours PRN, mild pain (1-3), fever, For temp greater than 100.4 F (38 C), Starting on Thu07/05/24 at 0134, Maximum dose of acetaminophen is 4000 mg from all sources in 24 hours. Start: 04-22-2024 End: 04-30-2024 take 1 tablet by mouth every six hours as needed for pain and fever acetaminophen (Tylenol) tablet 650 mg Start: 01-15-2024 End: 01-26-2024 take 1 tablet by mouth every six hours as needed for pain and fever acetaminophen (Tylenol) tablet 650 mg Start: 10-20-2023 End: 10-27-2023 take 1 tablet by mouth every six hours as needed for pain and fever acetaminophen (Tylenol) tablet 650 mg Start: 06-30-2023 End: 07-05-2023 take 1 tablet by mouth every six hours as needed for pain and fever acetaminophen (Tylenol) tablet 650 mg Start: 04-02-2023 End: 04-07-2023 take 1 tablet by mouth every six hours as needed for pain and pain and headache and fever acetaminophen (Tylenol) tablet 650 mg Start: 02-10-2023 End: 02-14-2023 take 1 tablet by mouth every six hours as needed for pain and fever acetaminophen (Tylenol) tablet 650 mg Start: 12-22-2022 End: 12-25-2022 take 1 tablet by mouth every six hours as needed for pain and fever acetaminophen (Tylenol) tablet 650 mg End: 04-15-2023 acetaminophen (Tylenol) 325 MG tablet every 4 hours as needed. 0 04/15/2023 Discontinued (Stop taking at discharge) [id number] 200 actuat albuter ol 0.09 mg/actuat metered dose inhaler (20 sources) beta2-Adrenergic Agonist Start: 07-05-2024 End: 07-10-2024 Start: 04-22-2024 End: 04-30-2024 Start: 10-20-2023 End: 10-27-2023 take 1 puff(s) by inhalation every four hours as needed for wheezing 1 puff, Inhalation, Every 4 hours PRN, shortness of breath, wheezing, Starting on Thu10/20/23 at 2154 Start: 04-10-2023 End: 04-15-2023 2.5 mg, Nebulization, 2 time s daily PRN, shortness of breath, wheezing, Starting on Thu04/10/23 at 1032 Start: 04-03-2023 End: 04-07-2023 take 1 puff(s) by inhalation every six hours as needed for wheezing 1 puff, Inhalation, Every 6 hours PRN, wheezing, Starting on Thu04/03/23 at 0950 1st line PRN wheezing Start: 04-03-2023 End: 04-07-2023 2.5 mg, Nebulization, Daily PRN, wheezing, shortness of breath, Starting on Thu04/03/23 at 0950 Start: 12-23-2022 End: 12-25-2022 2.5 mg, Nebulization, As nee ded, wheezing, shortness of breath, Starting on Thu12/23/22 at 0055 Start: 06-04-2022 take 2 puff(s) by in halation every six hours as needed 2 puff, Inhalation, EVERY 6 HOURS PRN, Starting on Thu06/04/22 at 0236, Until Discontinued, Wheezing Initiate RT Bronchodilator Protocol: Yes - Inpatient Protocol Start: 11-09-2019 End: 01-28-2023 take 2 puff(s) by mouth four times daily albuterol 108 (90 Base) MCG/ACT inhaler INHALE TWO PUFFS BY MOUTH FOUR TIMES DAILY 0 11/09/2019 01/28/2023 Discontinued (Duplicate order) Start: 11-09-2019 take 2 puff(s) by mo uth four times daily PROAIR HFA 90 mcg/actuation inhaler INHALE TWO PUFFS BY MOUTH FOUR TIMES DAILY 0 11/09/2019 Active Start: 05-05-2017 PROAIR HFA 108 (90 Base) MCG/ACT inhaler Start: 05-05-2017 PROAIR HFA 108 (90 Base) MCG/ACT inhaler End: 04-15-2023 albuterol (2.5 MG/3ML) 0.083 % nebulizer solution Take 2.5 mg by nebulization 2 times daily as needed. PRN 0 04/15/2023 Discontinued (Stop taking at discharge) albuterol (2.5 M G/3ML) 0.083% nebulizer solution Inhale 2.5 mg. PRN 0 Active albuterol 108 (9 0 Base) MCG/ACT inhaler every 4 hours. 0 Active albuterol (PROVE NTIL) 2.5 mg /3 mL (0.083 %) nebulizer solution Use 2.5 mg via nebulizer as needed. 0 Active Comment on above: Use 2.5 mg via nebul izer as needed. INHALE TWO PUFFS BY MOUTH FOUR TIMES DAILY albuterol 0.833 mg/ml / ipratropium bromide 0.167 mg/ml inhalation solution (20 sources) Anticholinergic, beta2-Adrenergic Agonist Start: 07-06-2024 End: 07-10-2024 3 mL, Nebulization, Every 4 hours PRN, wheezing, Starting on Thu07/06/24 at 1645 Start: 07-05-2024 End: 07-06-2024 3 mL, Nebulization, 2 times daily, First dose on Thu07/05/24 at 0130 Start: 07-02-2023 End: 07-05-2023 ipratropium-albuterol (Duo-N eb) 0.5-2.5 mg/3 mL nebulizer solution 3 mL Start: 06-30-2023 End: 07-01-2023 3 mL, Nebulization, Every 6 hours, First dose on Thu06/30/23 at 2110 alendronic acid 70 mg oral tablet (20 sources) Bisphosphonate Start: 05-19-2017 End: 07-21-2024 take 1 tablet by mouth every week alendronate (Fosamax) 70 MG tablet Take 70 mg by mouth once a week. 05/19/2017 07/21/2024 Discontinued (Stop taking at discharge) Comment on above: Take 70 mg by mouth once each week. ALPRAZolam 0.25 mg disintegrating oral tablet (2 sources) Benzodiazepine Start: 01-05-2023 End: 01-05-2023 ALPRAZolam (Xanax) disintegrating tablet 0.25 mg aluminum hydroxide 40 mg/ml / magnesium hydroxide 40 mg/ml / simethicone 4 mg/ml oral suspension (2 sources) Start: 04-02-2023 End: 04-07-2023 aluminum & magnesium hydroxide-simethico ne (Mylanta) 200-200-20 MG/5ML oral suspension 10 mL amLODIPine 5 mg oral tablet (20 sources) Dihydropyridine Calcium Channel Barbara Start: 07-05-2024 End: 07-10-2024 take 2.5 mg by mouth once daily 2.5 mg, Oral, Daily, First dose on Thu07/05/24 at 0900 Start: 06-01-2024 take 1 tablet by remy th once daily amLODIPine (Norvasc) 2.5 MG tablet Indications: Hypertension Take 2.5 mg by mouth daily. 06/01/2024 Active Start: 04-03-2023 End: 04-07-2023 take 2.5 mg by mouth once daily 2.5 mg, Oral, Daily, F irst dose on Thu04/03/23 at 1000 Start: 05-27-2017 End: 01-26-2024 take 2.5 mg by mouth once daily 2.5 mg, Oral, Daily, F irst dose on Thu12/23/22 at 0800 Start: 04-27-2017 End: 06-06-2022 take 10 mg by mouth once daily 10 mg, Oral, DAILY, Fir st dose on Thu06/04/22 at 0900, Until Discontinued Comment on above: Take 2.5 mg by mouth once daily. betamethasone 0.5 mg/ml / clotrimazole 10 mg/ml topical cream (20 sources) Azole Antifungal, Corticosteroid Start: 03-31-2017 End: 02-14-2023 clotrimazole-betamethas one (Lotrisone) cream PRN 0 03/31/2017 02/14/2023 Discontinued (Stop taking at discharge) Bioflavonoid Products (Alana-C) tablet (20 sources) End: 01-26-2024 Bioflavonoid Products (Alana-C) tablet Every 24 hours. 0 01/26/2024 Discontinued (Stop taking at discharge) Bioflavonoid Pro ducts (Alana-C) tablet Every 24 hours. 0 Suspended Bioflavonoid Pro ducts (Alana-C) tablet Every 24 hours. 0 Active 12 hr buPROPion hydrochloride 150 mg extended release oral tablet (7 sources) Aminoketone Start: 10-17-2019 End: 06-25-2022 take 1 tablet by mouth twice daily buPROPion SR (ZYBAN SR; WELLBUTRIN SR) 150 mg 12 hr tablet Take 150 mg by mouth twice daily. 0 10/17/2019 06/25/2022 Discontinued Start: 01-06-2018 take 150 mg by mouth once daily in the morning 150 mg, Oral, EVERY MORNING, First dose on Thu06/04/22 at 0900, Until Discontinued Do not crush or break. Comment on above: Take 150 mg by mouth twice daily. calcium carbonate 500 mg chewable tablet (20 sources) Start: 07-04-2023 End: 07-05-2023 calcium carbonate (Tums) chewable tablet 1,000 mg Start: 02-12-2023 End: 02-15-2024 calcium carbonate (Tums) ho wable tablet 500 mg calcium chloride 0.0014 meq/ ml / potassium chloride 0.004 meq/ml / sodium chloride 0.103 meq/ml / sodium lactate 0.028 meq/ml injectable solution (12 sources) Start: 01-15-2024 End: 01-16-2024 lactated ringers bolus 1,000 mL Start: 04-02-2023 End: 04-02-2023 lactated ringers bolus 1,000 mL Start: 01-05-2023 End: 01-05-2023 lactated [facility] Start: 12-23-2022 End: 12-25-2022 lactated [facility] infusion cholecalciferol 9.52 unt/ml / glucose 357 mg/ml oral gel (4 sources) Vitamin D Start: 04-22-2024 End: 04-30-2024 Start: 01-05-2023 End: 01-05-2023 glucose oral gel 15 g cloNIDine hydrochloride 0.1 mg oral tablet (4 sources) Central alpha-2 Adrenergic Agonist Start: 06-05-2022 End: 02-14-2023 cloNIDine (Catapres) 0.1 MG tablet Take 0.1 mg by mouth. 0 06/05/2022 02/14/2023 Discontinued (Stop taking at discharge) colchicine 0.6 mg oral tablet (20 sources) Start: 03-09-2023 End: 10-27-2023 take 1 tablet by mouth three times daily colchicine 0.6 MG tablet Take 0.6 mg by mouth 3 times daily. 0 03/09/2023 10/27/2023 Discontinued (Stop taking at discharge) Start: 05-16-2017 End: 12-25-2022 colchicine 0.6 MG tablet Abdoul e 0.6 mg by mouth in the morning and 0.6 mg at noon and 0.6 mg in the evening. 0 05/16/2017 12/25/2022 Discontinued (Stop taking at discharge) Start: 05-16-2017 take 0.6 mg by mouth once daily 0.6 mg, Oral, DAILY, First dose on Thu06/04/22 at 0900, Until Discontinued End: 02-14-2023 colchicine 0.6 MG tablet gavin ry 8 hours. 0 02/14/2023 Discontinued (Stop taking at discharge) Comment on above: Take 0.6 mg by mouth three times daily. cyclobenzaprine hydrochloride 10 mg oral tablet (1 source) Muscle Relaxant Start: 017 End: take 1 tablet by mouth every eight hours as needed cyclobenzaprine (FLEXERIL) 10 mg tablet Take 10 mg by mouth three times daily as needed. 0 05/28/2017 06/25/2022 Discontinued Comment on above: Take 10 mg by mouth three times daily as needed. diclofenac sodium 0.01 mg/mg topical gel (6 sources) Nonsteroidal Anti-inflammatory Drug Start: 024 End: 024 2 g, Topical, 2 times daily, First dose on Thu04/28/24 at 1330, Apply to affected area Start: 01-20-2024 End: 02-19-2024 Diclofenac Sodium (Voltaren) 1 % gel Apply 4 g topically 2 times daily. 240 g 0 01/20/2024 02/19/2024 Active Start: 01-19-2024 End: 01-25-2024 Diclofenac Sodium (Voltaren) 1 % gel 4 g dicyclomine hydrochloride 20 mg oral tablet (20 sources) Anticholinergic Start: 05-16-2024 End: 07-10-2024 take 1 tablet by mouth three times daily dicyclomine (Bentyl) 20 MG tablet Indications: Irritable Bowel Syndrome Take 20 mg by mouth 3 times daily. 05/16/2024 Suspended Start: 10-20-2023 End: 10-27-2023 take 20 mg by mouth three times daily before mealtime 20 mg, Oral, 3 times daily before meals, First dose on Thu10/20/23 at 2200 Start: 07-01-2023 End: 07-05-2023 dicyclomine (Bentyl) capsule 20 mg Start: 04-10-2023 End: 04-15-2023 take 20 mg by mouth three times daily before mealtime 20 mg, Oral, 3 times daily before meals, First dose on Thu04/10/23 at 1100 Start: 04-09-2023 End: 04-09-2023 dicyclomine (Bentyl) capsule 10 mg Start: 02-11-2023 End: 02-14-2023 take 20 mg by mouth three times daily before mealtime 20 mg, Oral, 3 times daily before meals, First dose on Thu02/11/23 at 0730 Start: 12-22-2022 End: 12-25-2022 take 20 mg by mouth three times daily before mealtime 20 mg, Oral, 3 times daily before meals, First dose on Thu12/22/22 at 2115 Start: 06-03-2022 End: 06-03-2022 dicyclomine (BENTYL) capsule 10 mg Start: 06-03-2022 End: 11-07-2023 dicyclomine (Bentyl) 20 MG t ablet Take 1 tablet (20 mg) by mouth in the morning and 1 tablet (20 mg) at noon and 1 tablet (20 mg) in the evening. Take before meals. 90 tablet 1 11/07/2022 11/07/2023 Active diphenhydrAMINE hydrochloride 50 mg oral capsule (17 sources) Histamine-1 Receptor Antagonist Start: 01-26-2024 diphenhydrAMINE (BENADryl) injection 25 mg Start: 01-26-2024 End: 04-30-2024 take 1 capsule by mouth every six hours as needed diphenhydrAMINE (BENADryl) 50 MG capsule Take 1 capsule (50 mg) by mouth every 6 hours as needed for itching. 30 tablet 01/26/2024 04/30/2024 Discontinued (Stop taking at discharge) Start: 01-21-2024 End: 01-26-2024 take 1 tablet by mouth every six hours as needed diphenhydrAMINE (BENADryl) tablet/capsule 50 mg Start: 01-05-2023 End: 01-05-2023 diphenhydrAMINE (BENADryl) i njection 12.5 mg diphenhydrAMINE hydrochloride 10 mg/ml / zinc acetate 1 mg/ml topical cream (20 sources) Histamine-1 Receptor Antagonist Start: 01-26-2024 End: 01-25-2025 diphenhydrAMINE-zinc acetate (BENADryl) cream Apply topically 3 times daily as needed for itching. 28 g 1 01/26/2024 07/05/2024 Discontinued Start: 01-21-2024 End: 01-26-2024 diphenhydrAMINE-zinc acetate (BENADryl) cream 0.4 ml enoxaparin sodium 100 mg/ml prefilled syringe (6 sources) Low Molecular Weight Heparin Start: 04-23-2024 End: 04-27-2024 inject 40 mg by subcutaneous injection every twenty-four hours 40 mg, SubCUTAneous, Every 24 hours scheduled (Daily), First dose on Thu04/23/24 at 0900, Indication of Use: Prophylaxis-DVT/PE, Indications: Prophylaxis of Venous Thromboembolism Start: 07-01-2023 End: 07-05-2023 inject 40 mg by subcutaneous injection every twenty-four hours 40 mg, SubCUTAneous, Every 24 hours scheduled (Daily), First dose on Thu07/01/23 at 0900 Indication of Use: Prophylaxis-DVT/PE Indications: Prophylaxis of Venous Thromboembolism Start: 12-22-2022 End: 12-25-2022 enoxaparin (Lovenox) syringe 30 mg escitalopram 20 mg oral tablet (8 sources) Serotonin Reuptake Inhibitor Start: 11-02-2019 End: 06-25-2022 take 1 tablet by mouth twice daily escitalopram oxalate (LEXAPRO) 20 mg tablet Take 20 mg by mouth twice daily. 0 11/02/2019 06/25/2022 Discontinued Start: 01-06-2018 take 20 mg by mouth once daily 20 mg, Oral, DAILY, First dose on Thu06/04/22 at 0900, Until Discontinued Start: 05-25-2017 End: 06-25-2022 take 1 tablet by mouth once daily escitalopram oxalate (LEXAPRO) 10 mg tablet Take 10 mg by mouth once daily. 0 05/25/2017 06/25/2022 Discontinued Comment on above: Take 10 mg by mouth once daily. Take 20 mg by mouth twice daily. 2 ml fentaNYL 0.05 mg/ml injection (4 sources) Opioid Agonist Start: 01-05-2023 End: 01-05-2023 fentaNYL (Sublimaze) injection 50 mcg Start: 01-05-2023 End: 01-05-2023 fentaNYL (Sublimaze) injecti on 25 mcg fluticasone propionate 0.05 mg/actuat metered dose nasal spray (20 sources) Corticosteroid Start: 06-30-2023 End: 07-05-2023 1 spray, Each Nostril, Daily PRN, rhinitis, Starting on Thu06/30/23 at 2109 Shake gently. Before first use, prime pump (press 6 times until fine spray appears). After use, clean tip and replace cap. Start: 04-27-2017 take 1 spray(s) nasa l route once daily as needed fluticasone (Flonase) 50 MCG/ACT nasal spray Indications: Nasal Congestion Administer 1 spray into each nostril daily as needed. 04/27/2017 Suspended Start: 04-27-2017 fluticasone (F lonase) 50 MCG/ACT nasal spray Administer 1 spray into affected nostril(s). 0 04/27/2017 Active Start: 04-27-2017 fluticasone (F LONASE) 50 mcg/actuation nasal spray Use 1 Ringold in the nose once daily as needed. 0 04/27/2017 Active End: 01-28-2023 fluticasone (Flonase) 50 MCG /ACT nasal spray Every 24 hours. 0 01/28/2023 Discontinued (Duplicate order) Comment on above: Use 1 Ringold in the n ose once daily as needed. folic acid 1 mg oral tablet (20 sources) Start: 04-10-2023 End: 04-30-2025 take 1 tablet by mouth once daily folic acid (Folvite) 1 MG tablet Take 1 tablet (1 mg) by mouth daily. 30 tablet 04/30/2024 07/05/2024 Discontinued (Therapy completed) Start: 04-03-2023 End: 04-07-2023 folic acid (Folvite) tablet 1 mg Start: 04-02-2023 End: 04-02-2023 folic acid (Folvite) tablet 1 mg Start: 12-22-2022 End: 12-25-2022 folic acid (Folvite) tablet 1 mg Start: 06-07-2022 take 1 tablet by remy th once daily folic acid (FOLVITE) 1 MG tablet Take 1 tablet by mouth daily 30 tablet 0 06/07/2022 Active Start: 06-04-2022 End: 06-06-2023 take 1 tablet by mouth once daily folic acid (Folvite) 1 MG tablet TAKE 1 TABLET BY MOUTH DAILY 30 tablet 0 06/06/2022 06/06/2023 Active folic acid 1 mg in dextrose 5 % 50 mL IVPB (2 sources) Start: 07-05-2024 End: 07-08-2024 1 mg, IntraVENous, at 100 mL/hr, Administer over 30 Minutes, Daily, First dose on Thu07/05/24 at 0900, For 3 doses furosemide 20 mg oral tablet (20 sources) Loop Diuretic Start: 05-18-2017 End: 02-14-2023 take 2 tablets by mouth twice daily furosemide (Lasix) 20 MG tablet Take 40 mg by mouth 2 times daily. 0 05/18/2017 02/14/2023 Discontinued (Stop taking at discharge) Start: 05-18-2017 take 1 tablet by remy th twice daily furosemide (Lasix) 20 MG tablet Take 20 mg by mouth 2 times daily. 0 05/18/2017 Active Start: 05-18-2017 End: 06-06-2022 take 1 tablet by mouth once daily furosemide (Lasix) 20 MG tablet Take 20 mg by mouth daily. 0 05/18/2017 Active End: 01-28-2023 furosemide (Lasix) 20 MG tab let Every 24 hours. 0 01/28/2023 Discontinued Comment on above: Take 20 mg by mouth once daily as needed. gabapentin 300 mg oral capsule (20 sources) Anti-epileptic Agent Start: 07-05-2024 End: 07-10-2024 take 300 mg by mouth three times daily 300 mg, Oral, 3 times daily, First dose (after last modification) on Thu07/05/24 at 2100 Start: 07-05-2024 End: 07-05-2024 take 100 mg by mouth twice daily 100 mg, Oral, 2 times daily, First dose on Thu07/05/24 at 0130 Start: 06-10-2024 take 2 capsules by m outh three times daily gabapentin (Neurontin) 100 MG capsule Indications: Neuropathic Pain TAKE TWO CAPSULES BY MOUTH 3 TIMES DAILY 06/10/2024 Active Start: 01-05-2023 End: 01-05-2023 gabapentin (Neurontin) capsu le 100 mg glucagon (rdna) 1 mg injecti on (5 sources) Antihypoglycemic Agent Start: 04-22-2024 End: 04-30-2024 Start: 01-05-2023 End: 01-05-2023 glucagon (human recombinant) injection 1 mg Start: 06-04-2022 glucagon (rDNA ) injection 1 mg 150 ml glucose 50 mg/ml inje ction (11 sources) Start: 04-22-2024 End: 04-30-2024 Start: 04-22-2024 End: 04-30-2024 Start: 01-05-2023 End: 01-05-2023 dextrose 50 % solution 12.5 g Start: 01-05-2023 End: 01-05-2023 dextrose 5 % infusion Start: 06-04-2022 glucose (GLUTO SE) 40 % oral gel 15 g Start: 06-04-2022 dextrose 50 % IV solution Start: 06-04-2022 dextrose 5 % s olution 250 ml glucose 50 mg/ml / sodium chloride 9 mg/ml injection (6 sources) Start: 07-04-2024 End: 07-04-2024 125 mL/hr, IntraVENous, Once , On Thu07/04/24 at 1835, For 1 dose Start: 03-09-2024 End: 03-09-2024 dextrose 5 % and sodium chlo ride 0.45 % infusion Start: 03-08-2024 End: 03-09-2024 dextrose 5 % and sodium chlo ride 0.9 % infusion 0.5 ml heparin sodium, porcine 23734 unt/ml prefilled syringe (2 sources) Unfractionated Heparin, Anti-coagulant Start: 07-05-2024 End: 07-10-2024 inject 1 dose by subcutaneous injection three times daily 5,000 Units, SubCUTAneous, Every 8 hours scheduled (3 times per day), First dose on Thu07/05/24 at 0600 1 ml hydrALAZINE hydrochloride 20 mg/ml injection (3 sources) Arteriolar Vasodilator Start: 04-22-2024 End: 04-30-2024 take 10 mg intravenously every four hours as needed for hypertension Start: 10-21-2023 End: 10-27-2023 take 10 mg intravenously every four hours as needed for hypertension hydrALAZINE (Apresoline) injection 10 mg hydrOXYzine pamoate 25 mg oral capsule (20 sources) Antihistamine Start: 04-28-2024 End: 04-30-2024 take 1 capsule by mouth every six hours as needed for anxiety 25 mg, Oral, Every 6 hours PRN, itching, anxiety, Starting on Thu04/28/24 at 1833 Start: 01-20-2024 End: 02-05-2024 take 1 capsule by mouth every eight hours as needed for anxiety hydrOXYzine pamoate (Vistaril) 25 MG capsule Take 1 capsule (25 mg) by mouth every 8 hours as needed for anxiety for up to 10 days. 30 capsule 01/26/2024 Suspended Start: 04-02-2023 End: 04-07-2023 take 1 capsule by mouth every six hours as needed for anxiety hydrOXYzine pamoate (Vistaril) capsule 50 mg End: 04-30-2024 take 1 tablet by mouth every six hours as needed hydrOXYzine HCl (Atarax) 25 MG tablet Take 25 mg by mouth every 6 hours as needed for itching. 04/30/2024 Discontinued (Stop taking at discharge) insulin lispro 100 unt/ml injectable solution (7 sources) Insulin Analog Start: 06-04-2022 End: 02-11-2023 Insulin Lispro (Humalog) injection 0-12 Units Iopamidol (1 source) Radiographic Contrast Agent Start: 07-19-2019 End: 07-19-2019 iopamidol (ISOVUE-370) 76 % injection 75 mL iopamidol (Isovue-370) 76 % injection 75 mL (2 sources) Start: 07-05-2024 End: 07-05-2024 take 75 mL intravenously once as needed 75 mL, IntraVENous, IMG once PRN, contrast, Starting on Thu07/05/24 at 1309, For 1 dose ipratropium bromide 0.2 mg/ml inhalation solution (20 sources) Anticholinergic Start: 05-04-2017 End: 04-15-2023 ipratropium (Atrovent) 0.02 % nebulizer solution PRN 0 05/04/2017 04/15/2023 Discontinued (Stop taking at discharge) ketoconazole 20 mg/ml medicated shampoo (20 sources) Azole Antifungal Start: 11-18-2019 End: 07-05-2024 ketoconazole (NIZOral) 2 % shampoo EVERY THREE DAYS 11/18/2019 07/05/2024 Discontinued (Therapy completed) Start: 11-18-2019 ketoconazole ( NIZOral) 2 % shampoo 1 ml ketorolac tromethamine 30 mg/ml cartridge (1 source) Nonsteroidal Anti-inflammatory Drug, Cyclooxygenase Inhibitor Start: 06-24-2020 End: 06-24-2020 ketorolac (TORADOL) injection 15 mg labetalol hydrochloride 5 mg/ml injectable solution (4 sources) beta-Adrenergic Barbara Start: 01-15-2024 End: 01-26-2024 labetalol (Normodyne,Tranda te) injection 10 mg labetalol (Normodyne,Trandate ) injection 5 mg (2 sources) Start: 01-05-2023 End: 01-05-2023 labetalol (Normodyne,Tranda te) injection 5 mg lansoprazole 30 mg delayed release oral capsule (1 source) Proton Pump Inhibitor Start: 03-30-2017 End: 06-25-2022 take 1 capsule by mouth once daily lansoprazole (PREVACID) 30 mg capsule Take 30 mg by mouth once daily. 0 03/30/2017 06/25/2022 Discontinued Comment on above: Take 30 mg by mouth once daily. loperamide hydrochloride 2 mg oral capsule (20 sources) Opioid Agonist Start: 07-06-2024 End: 07-10-2024 2 mg, Oral, 2 times daily, First dose (after last modification) on Thu07/06/24 at 2100, After each loose stool Start: 06-10-2024 End: 07-06-2024 take 1 capsule by mouth once daily in the morning loperamide (Imodium) 2 MG capsule Indications: Diarrhea Take 2 mg by mouth every morning. 06/10/2024 Suspended Start: 10-22-2023 End: 10-27-2023 loperamide (Imodium) capsule 2 mg Start: 04-10-2023 End: 04-15-2023 loperamide (Imodium) capsule 2 mg Start: 04-02-2023 End: 04-07-2023 loperamide (Imodium) capsule 2 mg End: 02-10-2023 loperamide (Imodium A-D) 2 M G tablet every 6 hours. PRN 0 02/10/2023 Discontinued loratadine 10 mg oral tablet (20 sources) End: 02-10-2023 loratadine (Claritin) 10 MG tablet Every 24 hours. PRN 0 02/10/2023 Discontinued LORazepam 0.5 mg oral tablet (20 sources) Benzodiazepine Start: 07-10-2024 End: 07-10-2024 take 0.5 mg by mouth once 0.5 mg, Oral, Once, On Thu07/10/24 at 0000, For 1 dose Start: 07-05-2024 End: 07-10-2024 take 1 tablet by mouth every four hours as needed for anxiety 1 mg, Oral, Every 4 hours PRN, anxiety, Starting on Thu07/05/24 at 0132 Start: 07-04-2024 End: 07-04-2024 1 mg, IntraVENous, Once, On Thu07/04/24 at 2015, For 1 dose, For IV doses dilute dose with 1ml NS. Start: 04-22-2024 End: 04-22-2024 2 mg, IntraVENous, Once, On Thu04/22/24 at 2120, For 1 dose, For IV doses dilute dose with 1ml NS. Start: 03-08-2024 End: 03-09-2024 LORazepam (Ativan) tablet 1 mg Start: 01-20-2024 End: 01-25-2024 take 1 tablet by mouth every eight hours as needed LORazepam (Ativan) tablet 0.5 mg Start: 01-18-2024 End: 01-20-2024 take 1 tablet by mouth every eight hours as needed LORazepam (Ativan) tablet 1 mg Start: 01-16-2024 End: 01-18-2024 take 1 tablet by mouth every six hours as needed LORazepam (Ativan) tablet 2 mg Start: 01-15-2024 End: 01-15-2024 LORazepam (Ativan) injection 2 mg Start: 10-20-2023 End: 10-27-2023 LORazepam (Ativan) tablet 1 mg Start: 02-10-2023 End: 02-10-2023 LORazepam (Ativan) injection 1 mg Start: 01-05-2023 End: 01-05-2023 LORazepam (Ativan) injection 0.5 mg Start: 06-05-2022 LORazepam (ATI VAN) tablet 1 mg losartan potassium 100 mg oral tablet (20 sources) Angiotensin 2 Receptor Barbara Start: 04-23-2024 End: 04-30-2024 take 100 mg by mouth once daily 100 mg, Oral, Daily, First dose on Thu04/23/24 at 0900 Start: 10-21-2023 End: 10-27-2023 take 100 mg by mouth once daily 100 mg, Oral, Daily, F irst dose on Thu10/21/23 at 0900 Start: 07-01-2023 End: 07-05-2023 take 100 mg by mouth once daily 100 mg, Oral, Daily, F irst dose on Thu07/01/23 at 0900 Start: 04-10-2023 End: 04-15-2023 take 100 mg by mouth once daily 100 mg, Oral, Daily, F irst dose on Thu04/10/23 at 1045 Start: 02-15-2023 End: 07-10-2024 take 1 tablet by mouth once daily losartan (Cozaar) 10 0 MG tablet Take 1 tablet (100 mg) by mouth daily. Do not start before February 15, 2023. 30 tablet 11 02/15/2023 Active Start: 02-11-2023 End: 02-14-2023 losartan (Cozaar) tablet 100 mg Start: 12-23-2022 End: 12-25-2022 losartan (Cozaar) tablet 100 mg magnesium oxide 400 mg oral tablet (12 sources) Start: 10-26-2023 End: 01-26-2024 take 2 tablets by mouth twice daily magnesium oxide (Mag-Ox) 400 (240 Mg) MG tablet Take 2 tablets (800 mg) by mouth 2 times daily. 0 10/26/2023 01/26/2024 Discontinued (Stop taking at discharge) Start: 10-26-2023 End: 10-27-2023 magnesium oxide (Mag-Ox) tab let 800 mg 50 ml magnesium sulfate 40 mg/ml injection (15 sources) Start: 07-04-2024 End: 07-04-2024 2,000 mg, IntraVENous, at 25 mL/hr, Administer over 2 Hours, Once, On 07/04/24 at 1835, For 1 dose, Recommended infusion rate not to exceed 1,000 mg (milligrams) per hour. Start: 04-23-2024 End: 04-23-2024 2,000 mg, IntraVENous, at 25 mL/hr, Administer over 2 Hours, Once, On 04/23/24 at 0700, For 1 dose, Recommended infusion rate not to exceed 1,000 mg (milligrams) per hour. Start: 01-22-2024 End: 01-22-2024 magnesium sulfate IVPB premi x 2,000 mg Start: 01-17-2024 End: 01-17-2024 magnesium sulfate IVPB premi x 2,000 mg Start: 10-25-2023 End: 10-26-2023 magnesium sulfate IVPB premi x 2,000 mg Start: 10-23-2023 End: 10-23-2023 magnesium sulfate IVPB 4,000 mg Start: 04-13-2023 End: 04-13-2023 magnesium sulfate IVPB premi x 2,000 mg meloxicam 7.5 mg oral tablet (1 source) Nonsteroidal Anti-inflammatory Drug Start: 04-30-2017 End: 06-25-2022 take 1 tablet by mouth once daily meloxicam (MOBIC) 7.5 mg tablet Take 7.5 mg by mouth once daily. 0 04/30/2017 06/25/2022 Discontinued Comment on above: Take 7.5 mg by mouth once daily. 1 ml meperidine hydrochloride 25 mg/ml cartridge (2 sources) Opioid Agonist Start: 01-05-2023 End: 01-05-2023 meperidine (Demerol) injection 12.5 mg metFORMIN hydrochloride 500 mg oral tablet (20 sources) Biguanide Start: 12-23-2022 End: 12-25-2022 take 1000 mg by mouth once daily at breakfast 1,000 mg, Oral, Daily with breakfast, First dose on Thu12/23/22 at 0800 Start: 05-21-2017 End: 02-14-2023 take 2 tablets by mouth once daily at breakfast metFORMIN (Glucophage) 500 MG tablet Take 1,000 mg by mouth daily (with breakfast). 0 05/21/2017 02/14/2023 Discontinued (Stop taking at discharge) Start: 05-21-2017 End: 01-28-2023 metFORMIN (GLUCOPHAGE) 500 M G tablet End: 11-06-2022 metFORMIN (Glucophage) 500 M G tablet every 12 hours. 0 11/06/2022 Discontinued Comment on above: Take 1,000 mg by remy th daily with breakfast. 5 ml metoprolol tartrate 1 mg/ml injection (1 source) beta-Adrenergic Barbara Start: 10-23-19 End: 10-27-19 take 5 mg intravenously every six hours as needed metoprolol tartrate (Lopressor) injection 5 mg mirtazapine 15 mg oral tablet (20 sources) Start: 01-22-20 End: 08-08-20 take 1 tablet by mouth once daily mirtazapine (Remeron) 15 MG tablet Take 1 tablet (15 mg) by mouth Nightly. 30 tablet 1 04/30/2024 07/09/2024 Discontinued 1 ml morphine sulfate 4 mg/ml cartridge (8 sources) Opioid Agonist Start: 10-20-19 End: 10-26-19 take 4 mg intravenously every four hours as needed for pain 4 mg, IntraVENous, Every 4 hours PRN, severe pain (7-10), Starting on Thu10/20/23 at 2154, If oral and IV narcotics ordered, use oral first and only use IV if oral is ineffective or cannot take oral. Do Not give oral and IV within 1 hour of each other unless specifically ordered. Start: 07-03-2023 End: 07-03-2023 morphine injection 2 mg Start: 12-22-2022 End: 12-25-2022 take 2 mg intravenously every four hours as needed for pain 2 mg, IntraVENous, Every 4 hours PRN, severe pain (7-10), Starting on Thu12/22/22 at 2112 Start: 12-22-2022 End: 12-22-2022 morphine sulfate (PF) inject ion 2 mg Start: 05-15-2022 End: 05-15-2022 morphine sulfate (PF) inject ion 4 mg Multiple Vitamin (Multi Vitamin) tablet (1 source) End: 01-28-2023 Multiple Vitamin (Multi Vitamin) tablet Every 24 hours. 0 01/28/2023 Discontinued 1 ml naloxone hydrochloride 0.4 mg/ml injection (1 source) Opioid Antagonist Start: 10-21-2023 End: 10-27-2023 naloxone (Narcan) injection 0.4 mg niacin 100 mg oral tablet (20 sources) Nicotinic Acid End: 07-05-2024 niacin 100 MG tablet Every 24 hours. 07/05/2024 Discontinued (Therapy completed) nitroglycerin 0.4 mg sublingual tablet (20 sources) Nitrate Vasodilator Start: 04-03-2023 End: 04-07-2023 0.4 mg, SubLINGual, Every 5 min PRN, chest pain, Starting on Thu04/03/23 at 0951 May administer up to 3 doses per episode. End: 07-05-2024 nitroglycerin (Nitrostat) 0. 4 MG SL tablet 1 tab(s) sublingually every 5 minutes x 3 doses prn 07/05/2024 Discontinued olmesartan medoxomil 40 mg oral tablet (20 sources) Angiotensin 2 Receptor Barbara Start: 03-30-2023 End: 01-26-2024 take 1 tablet by mouth once daily olmesartan (BENIcar) 40 MG tablet Take 40 mg by mouth daily. 0 03/30/2023 01/26/2024 Discontinued (Stop taking at discharge) Start: 10-14-2022 End: 02-14-2023 olmesartan (BENIcar) 40 MG t ablet Every 24 hours. 0 10/14/2022 02/14/2023 Discontinued (Stop taking at discharge) Start: 10-14-2022 End: 01-28-2023 take 1 tablet by mouth once daily olmesartan (BENIcar) 40 MG tablet Take 40 mg by mouth daily. 0 10/14/2022 01/28/2023 Discontinued 2 ml ondansetron 2 mg/ml injection (20 sources) Serotonin-3 Receptor Antagonist Start: 01-15-2024 End: 01-15-2024 ondansetron (Zofran) injection 4 mg Start: 10-20-2023 End: 10-20-2023 ondansetron (Zofran) injecti on 4 mg Start: 04-15-2023 End: 04-22-2023 take 1 tablet by mouth every eight hours as needed for nausea and vomiting ondansetron ODT (Zofran-ODT) 4 MG disintegrating tablet Take 1 tablet (4 mg) by mouth every 8 hours as needed for nausea or vomiting for up to 7 days. 20 tablet 0 04/15/2023 04/22/2023 Active Start: 04-09-2023 End: 04-10-2023 ondansetron (Zofran) injecti on 4 mg Start: 04-02-2023 End: 04-07-2023 take 1 tablet by mouth every six hours as needed for nausea and vomiting ondansetron ODT (Zofran-ODT) disintegrating tablet 4 mg Start: 02-10-2023 End: 02-10-2023 ondansetron (Zofran) injecti on 4 mg Start: 01-05-2023 End: 01-12-2023 take 1 tablet by mouth every eight hours as needed for vomiting and nausea ondansetron (Zofran) 4 MG tablet Take 1 tablet (4 mg) by mouth every 8 hours as needed for vomiting or nausea for up to 7 days. 20 tablet 0 01/05/2023 01/12/2023 Active Start: 01-05-2023 End: 01-05-2023 ondansetron (Zofran) injecti on 4 mg Start: 12-22-2022 End: 12-22-2022 ondansetron (Zofran) injecti on 4 mg Start: 06-05-2022 ondansetron (Z OFRAN) injection 8 mg Start: 06-04-2022 End: 06-05-2022 take 8 mg under the tongue three times daily as needed for nausea 8 mg, SubLINGual, 3 TIMES DAILY PRN, Starting on Thu06/04/22 at 0236, Until Mariela 06/05/22 at 1753, Nausea, Vomiting Start: 06-04-2022 End: 06-05-2022 4 mg, IntraVENous, EVERY 6 H OURS PRN, Starting on Thu06/04/22 at 0236, Until Thu06/05/22 at 1753, Nausea, Vomiting Start: 06-04-2022 End: 06-04-2022 ondansetron (ZOFRAN) injecti on 8 mg Start: 06-03-2022 End: 06-03-2022 ondansetron (ZOFRAN-ODT) disintegrating tablet 4 mg Start: 05-15-2022 End: 05-15-2022 ondansetron (ZOFRAN) injecti on 4 mg Start: 05-15-2022 End: 01-28-2023 ondansetron ODT (Zofran-ODT) [address] 4-8 mg under the tongue. PRN 0 05/15/2022 01/28/2023 Discontinued (Duplicate order) Start: 06-25-2020 End: 05-15-2022 take 1 tablet by mouth three times daily as needed for nausea ondansetron (ZOFRAN-ODT) 4 MG disintegrating tablet Take 1 tablet by mouth 3 times daily as needed for Nausea or Vomiting 21 tablet 0 06/25/2020 05/15/2022 Discontinued (LIST CLEANUP) Start: 06-24-2020 End: 06-24-2020 ondansetron (ZOFRAN) injecti on 4 mg Start: 05-11-2017 End: 06-25-2020 ondansetron (ZOFRAN) 4 mg ta blet Take 4 mg by mouth as needed. 0 05/11/2017 Active End: 04-15-2023 ondansetron (Zofran) 4 MG ta blet Every 24 hours. 0 04/15/2023 Discontinued (Stop taking at discharge) Comment on above: Take 4 mg by mouth a s needed. ondansetron ODT (Zofran-ODT) disintegrating tablet 4 mg (15 sources) Start: 07-05-20 End: 07-10-20 take 1 tablet by mouth every eight hours as needed for nausea and vomiting ondansetron ODT (Zofran-ODT) disintegrating tablet 4 mg Start: 04-22-2024 End: 04-30-2024 take 1 tablet by mouth every eight hours as needed for nausea and vomiting ondansetron ODT (Zofran-ODT) disintegrating tablet 4 mg Start: 01-15-2024 End: 01-26-2024 take 1 tablet by mouth every eight hours as needed for nausea and vomiting ondansetron ODT (Zofran-ODT) disintegrating tablet 4 mg Start: 10-20-2023 End: 10-27-2023 take 1 tablet by mouth every four hours as needed for nausea and vomiting ondansetron ODT (Zofran-ODT) disintegrating tablet 4 mg Start: 06-30-2023 End: 07-05-2023 take 1 tablet by mouth every eight hours as needed for nausea and vomiting ondansetron ODT (Zofran-ODT) disintegrating tablet 4 mg Start: 04-10-2023 End: 04-15-2023 take 1 tablet by mouth every eight hours as needed for nausea and vomiting ondansetron ODT (Zofran-ODT) disintegrating tablet 4 mg Start: 02-10-2023 End: 02-14-2023 take 1 tablet by mouth every eight hours as needed for nausea and vomiting ondansetron ODT (Zofran-ODT) disintegrating tablet 4 mg Start: 12-22-2022 End: 12-25-2022 take 1 tablet by mouth every four hours as needed for nausea and vomiting ondansetron ODT (Zofran-ODT) disintegrating tablet 4 mg oxyCODONE hydrochloride 5 mg oral tablet (20 sources) Opioid Agonist Start: 04-10-2023 End: 04-15-2023 take 1 tablet by mouth every six hours as needed for pain oxyCODONE (Roxicodone) immediate release tablet 5 mg Start: 04-07-2023 End: 04-07-2023 oxyCODONE (Roxicodone) immed iate release tablet 10 mg Start: 02-10-2023 End: 02-14-2023 take 10 mg by mouth three times daily 10 mg, Oral, 3 times daily, First dose on Thu02/10/23 at 2320 Start: 01-05-2023 End: 01-05-2023 oxyCODONE (Roxicodone) immed iate release tablet 5 mg Start: 12-22-2022 End: 12-25-2022 take 1 tablet by mouth every six hours oxyCODONE (Roxicodone) immediate release tablet 10 mg Start: 06-04-2022 oxyCODONE (AMISHA ICODONE) immediate release tablet 10 mg Start: 05-29-2017 oxyCODONE (Amisha icodone) 10 MG immediate release tablet Take 10 mg by mouth in the morning and 10 mg at noon and 10 mg in the evening and 10 mg before bedtime. 0 05/29/2017 Suspended take 2 capsules by m outh every four hours as needed for pain oxyCODONE 5 MG capsule Take 10 mg by mouth every 4 hours as needed for Pain. 0 Active take 1 capsule by mo uth every four hours as needed for pain oxyCODONE 5 MG capsule Take 5 mg by mouth every 4 hours as needed for Pain.. 0 Active Comment on above: Take 10 mg by mouth four times daily. pantoprazole 40 mg delayed release oral tablet (20 sources) Proton Pump Inhibitor Start: 10-27-2023 End: 07-10-2024 take 40 mg by mouth once daily before breakfast 40 mg, Oral, Daily before breakfast, First dose on Thu07/05/24 at 0600, Do not crush, chew, or split. Start: 10-22-2023 End: 10-26-2024 take 1 tablet by mouth in the morning pantoprazole (ProtoNix) 40 MG EC tablet Take 1 tablet (40 mg) by mouth in the morning and 1 tablet (40 mg) in the evening. Take before meals. Do not crush, chew, or split.. 10/27/2023 07/05/2024 Discontinued (Therapy completed) Start: 11-22-2019 End: 04-15-2023 take 40 mg by mouth once daily 40 mg, Oral, Daily, Fir st dose on Thu12/23/22 at 0900 Do not crush, chew, or split. End: 04-12-2023 pantoprazole (ProtoNix) 40 M G EC tablet Every 24 hours. 0 01/28/2023 Discontinued PHENobarbital 32 mg oral tablet (20 sources) Start: 04-28-2024 End: 04-30-2024 take 1 tablet by mouth every eight hours 32.4 mg, Oral, Every 8 hours, First dose (after last modification) on Thu04/28/24 at 1800 Start: 04-27-2024 End: 04-28-2024 take 1 tablet by mouth every eight hours 64.8 mg, Oral, Every 8 hours, First dose (after last modification) on Thu04/27/24 at 1800 Start: 04-26-2024 End: 04-27-2024 take 1 tablet by mouth every six hours 64.8 mg, Oral, Every 6 hours, First dose (after last modification) on Thu04/26/24 at 1600 Start: 04-23-2024 End: 04-26-2024 take 1 tablet by mouth every four hours 64.8 mg, Oral, Every 4 hours, First dose on Thu04/23/24 at 0100 Start: 04-04-2024 End: 04-04-2024 take 97.2 mg by mouth once 97.2 mg, Oral, Once, On Thu04/04/24 at 1620, For 1 dose Start: 01-19-2024 End: 01-20-2024 PHENobarbital (Luminal) tabl et 16.2 mg Start: 01-15-2024 End: 01-15-2024 PHENobarbital (Luminal) tabl et 97.2 mg Start: 10-20-2023 End: 10-23-2023 take 1 tablet by mouth every six hours PHENobarbital (Luminal) tablet 64.8 mg Start: 07-03-2023 take 1 tablet by remy th every eight hours PHENobarbital (Luminal) tablet 32.4 mg Start: 06-30-2023 End: 07-03-2023 take 1 tablet by mouth every four hours 64.8 mg, Oral, Every 4 hours, First dose on Thu06/30/23 at 2110 OK to HOLD if overly sedated Start: 06-26-2023 End: 10-27-2023 take 1 tablet by mouth every four hours PHENobarbital (Luminal) 64.8 MG tablet Indications: Alcohol withdrawal syndrome without complication (HCC) Take 1 tablet (64.8 mg) by mouth every 4 hours. 180 tablet 0 06/26/2023 10/27/2023 Discontinued (Stop taking at discharge) Start: 04-07-2023 End: 04-07-2023 take 1 tablet by mouth every six hours PHENobarbital (Luminal) tablet 16.2 mg Start: 04-06-2023 End: 04-07-2023 take 1 tablet by mouth every six hours PHENobarbital (Luminal) tablet 32.4 mg Start: 04-04-2023 End: 04-06-2023 take 1 tablet by mouth every six hours PHENobarbital (Luminal) tablet 64.8 mg Start: 04-03-2023 End: 04-04-2023 take 1 tablet by mouth every four hours PHENobarbital (Luminal) tablet 97.2 mg Start: 04-02-2023 End: 04-02-2023 PHENobarbital (Luminal) inje ction 220 mg PHENobarbital (Luminal) injection 100 mg (2 sources) Start: 07-05-2024 End: 07-06-2024 take 100 mg intravenously every four hours 100 mg, IntraVENous, Every 4 hours, First dose (after last modification) on Thu07/05/24 at 1800, Administer no faster than 1 mg/kg/minute, to a max of 60 mg/min in adults. Hold for sedation. PHENobarbital (Luminal) injection 130 mg (2 sources) Start: 04-22-2024 End: 04-22-2024 130 mg, IntraVENous, Once, On Thu04/22/24 at 2120, For 1 dose, Administer no faster than 1 mg/kg/minute, to a max of 60 mg/min in adults. PHENobarbital (Luminal) injection 65 mg (2 sources) Start: 07-05-2024 End: 07-05-2024 65 mg, IntraVENous, 3 times daily, First dose on Thu07/05/24 at 0900, Administer no faster than 1 mg/kg/minute, to a max of 60 mg/min in adults. polyethylene glycol 3350 78535 mg powder for oral solution (16 sources) Osmotic Laxative Start: 07-05-2024 End: 07-10-2024 take 17 g by mouth every twenty-four hours as needed for constipation 17 g, Oral, Daily PRN, constipation, Starting on Thu07/05/24 at 0134, 1st line for treatment of constipation - give scheduled if no bowel movement in past 24 hours. Start: 04-22-2024 End: 04-30-2024 take 17 g by mouth every twenty-four hours as needed for constipation Start: 01-15-2024 End: 01-26-2024 take 17 g by mouth every twenty-four hours as needed for constipation 17 g, Oral, Daily PRN, constipation, Starting on Thu01/15/24 at 1842, 1st line for treatment of constipation - give scheduled if no bowel movement in past 24 hours. Start: 10-20-2023 End: 10-27-2023 take 17 g by mouth every twenty-four hours as needed for constipation 17 g, Oral, Daily PRN, constipation, Starting on Thu10/20/23 at 2154, 1st line for treatment of constipation - give scheduled if no bowel movement in past 24 hours. Start: 06-30-2023 End: 07-05-2023 take 17 g by mouth every twenty-four hours as needed for constipation 17 g, Oral, Daily PRN, constipation, Starting on Thu06/30/23 at 2109 1st line for treatment of constipation - give scheduled if no bowel movement in past 24 hours. Start: 04-10-2023 End: 04-15-2023 take 17 g by mouth every twenty-four hours as needed for constipation polyethylene glycol (PEG) 3350 (Miralax) packet 17 g Start: 02-10-2023 End: 02-14-2023 take 17 g by mouth every twenty-four hours as needed for constipation 17 g, Oral, Daily PRN, constipation, Starting on Thu02/10/23 at 2316 1st line for treatment of constipation - give scheduled if no bowel movement in past 24 hours. Start: 12-23-2022 End: 12-25-2022 take 17 g by mouth every twenty-four hours as needed for constipation 17 g, Oral, Daily PRN, constipation, Starting on Thu12/23/22 at 0055 1st line for treatment of constipation - give scheduled if no bowel movement in past 24 hours. Start: 05-26-2017 End: 06-25-2022 polyethylene glycol 3350 (MIRALAX, GLYCOLAX) 17 gram/dose powder Take 17 g by mouth once daily as needed. 0 05/26/2017 06/25/2022 Discontinued Comment on above: Take 17 g by mouth o nce daily as needed. potassium bicarbonate 20 meq effervescent oral tablet (1 source) Start: 06-04-2022 End: 06-04-2022 potassium bicarb-citric acid (EFFER-K) effervescent tablet 40 mEq 100 ml potassium chloride 0.1 meq/ml injection (20 sources) Start: 07-04-2024 End: 07-04-2024 10 mEq, IntraVENous, at 100 mL/hr, Administer over 1 Hours, Every 1 hour, First dose on 07/04/24 at 1835, For 4 doses, Total dose: 40 mEq Start: 06-22-2024 take 1 tablet by remy th once daily in the morning potassium chloride CR (Klor-Con) 10 MEQ ER tablet Indications: Hypokalemia Take 10 mEq by mouth every morning. 06/22/2024 Active Start: 04-23-2024 End: 04-23-2024 40 mEq, Oral, Once, On Sat at 0700, For 1 dose, Best given with food and plenty of water to minimize gastric irritation. Do not crush or chew. Start: 04-23-2024 End: 04-23-2024 40 mEq, Oral, Once, On Sat at 0700, For 1 dose, Best given with food and plenty of water to minimize gastric irritation. Do not crush or chew. Start: 01-22-2024 End: 01-22-2024 potassium chloride CR (Klor- Con M10) ER tablet 40 mEq Start: 01-16-2024 End: 01-17-2024 potassium chloride (Klor-Con ) packet 40 mEq Start: 10-23-2023 End: 10-23-2023 potassium chloride IVPB 10 m Eq Start: 10-22-2023 End: 10-22-2023 potassium chloride CR (Klor- Con M20) ER tablet 40 mEq Start: 10-21-2023 End: 10-27-2023 take 10 capsules by mouth once daily 10 mEq, Oral, Daily, First dose on Thu10/21/23 at 0800, Capsule may be swallowed whole, or may be opened and its contents sprinkled on applesauce if consumed immediately without chewing. Do not crush or chew. Start: 07-01-2023 End: 07-05-2023 take 1 [oz_av] by mouth once daily 10 mEq, Oral, Daily, First dose on Thu07/01/23 at 0800 Capsule may be swallowed whole, or may be opened and its contents sprinkled on applesauce if consumed immediately without chewing. Dissolve each packet in 4 ounces of water = 5 mEq per 1 oz fluid. Start: 04-06-2023 End: 10-27-2023 potassium chloride CR (Klor- Con) 10 MEQ ER tablet Start: 04-03-2023 End: 04-07-2023 potassium chloride CR (Klor- Con M10) ER tablet 10 mEq Start: 02-11-2023 End: 02-14-2023 take 10 capsules by mouth once daily 10 mEq, Oral, Daily, First dose on Thu02/11/23 at 0800 Capsule may be swallowed whole, or may be opened and its contents sprinkled on applesauce if consumed immediately without chewing. Do not crush or chew. Start: 12-24-2022 End: 01-28-2023 take 1 tablet by mouth once daily potassium chloride CR (Klor-Con) 10 MEQ ER tablet Take 10 mEq by mouth daily. 0 12/24/2022 01/28/2023 Discontinued Start: 09-29-2022 End: 11-06-2022 take 1 tablet by mouth once daily potassium chloride CR (Klor-Con) 10 MEQ ER tablet Take 10 mEq by mouth daily. 0 09/29/2022 11/06/2022 Discontinued Start: 06-04-2022 10 mEq, Oral, DAILY, First dose on Thu06/04/22 at 0900, Until Discontinued Do not crush or break. Start: 06-25-2020 End: 06-25-2020 potassium chloride (KLOR-CON M) extended release tablet 20 mEq Start: 03-30-2017 End: 01-26-2024 potassium chloride ER (Micro -K) 10 MEQ ER capsule Take 10 mEq by mouth in the morning. 0 03/30/2017 01/26/2024 Discontinued (Stop taking at discharge) End: 01-28-2023 potassium chloride CR (Klor- Con) 10 MEQ ER tablet Every 24 hours. 0 01/28/2023 Discontinued End: 11-06-2022 potassium chloride CR (Klor- Con M10) 10 MEQ ER tablet Every 24 hours. 0 11/06/2022 Discontinued Comment on above: Take 10 mEq by mouth once daily. 1000 ml potassium chloride 0.02 meq/ml / sodium chloride 9 mg/ml injection (2 sources) Start: 07-05-20 End: 07-07-20 take 125 mL intravenously every hour 125 mL/hr, IntraVENous, Continuous, Starting on Thu07/05/24 at 0145 pravastatin sodium 40 mg oral tablet (20 sources) HMG-CoA Reductase Inhibitor Start: 06-14-20 End: 07-05-20 take 1 tablet by mouth once daily at bedtime pravastatin (Pravachol) 40 MG tablet 1 tab(s) orally once a day (at bedtime) 90 days 06/14/2024 07/05/2024 Discontinued (Therapy completed) Start: 06-04-2022 take 20 mg by mouth once daily 20 mg, Oral, NIGHTLY, First dose on Thu06/04/22 at 2100, Until Discontinued Start: 04-30-2017 End: 02-11-2023 take 1 tablet by mouth in the morning pravastatin (Pravachol) 40 MG tablet Take 40 mg by mouth in the morning. 0 04/30/2017 02/11/2023 Discontinued (Therapy completed) Comment on above: Take 40 mg by mouth once daily. predniSONE 20 mg oral tablet (19 sources) Start: 03-02-2023 End: 10-27-2023 take 1 tablet by mouth twice daily predniSONE (Deltasone) 20 MG tablet TAKE ONE TABLET BY MOUTH TWICE DAILY FOR 5 DAYS 0 03/02/2023 10/27/2023 Discontinued (Stop taking at discharge) Start: 01-05-2023 End: 02-14-2023 predniSONE (Deltasone) 20 MG tablet Start: 10-27-2022 End: 12-25-2022 take 1 tablet by mouth twice daily predniSONE (Deltasone) 20 MG tablet TAKE ONE TABLET BY MOUTH TWICE DAILY FOR 5 DAYS 0 10/27/2022 12/25/2022 Discontinued (Stop taking at discharge) Start: 11-18-2019 End: 06-25-2022 predniSONE (DELTASONE) 20 mg tablet prochlorperazine 5 mg/ml injectable solution (2 sources) Phenothiazine Start: 04-02-2023 End: 04-02-2023 prochlorperazine (Compazine) injection 10 mg Promethazine (4 sources) Phenothiazine Start: 01-19-2024 End: 01-26-2024 take 1 tablet by mouth every six hours as needed for nausea and vomiting promethazine (Phenergan) tablet 25 mg Start: 04-06-2023 End: 04-07-2023 inject 25 mg by intramuscular injection every six hours as needed for nausea and vomiting promethazine (Phenergan) injection 25 mg 50 ml sodium chloride 9 mg/m l injection (20 sources) Start: 07-04-2024 End: 07-04-2024 1,000 mL, IntraVENous, at 1, 000 mL/hr, Administer over 1 Hours, Once, On Thu07/04/24 at 1725, For 1 dose Start: 04-22-2024 End: 04-23-2024 take 75 mL intravenously every hour 75 mL/hr, IntraVENous, Continuous, Starting on Thu04/22/24 at 2300, For 14 hours Start: 04-04-2024 End: 04-04-2024 1,000 mL, IntraVENous, at 1, 000 mL/hr, Administer over 1 Hours, Once, On Thu04/04/24 at 1705, For 1 dose Start: 03-08-2024 End: 03-09-2024 sodium chloride 0.9 % bolus 1,000 mL Start: 01-19-2024 End: 01-20-2024 sodium chloride 0.9 % infusi on Start: 01-15-2024 End: 01-26-2024 sodium chloride 0.9 % bolus 30 mL Start: 10-20-2023 End: 10-26-2023 take 125 mL intravenously every hour 125 mL/hr, IntraVENous, Continuous, Starting on Thu10/20/23 at 2155 Start: 10-20-2023 End: 10-27-2023 10 mL, IntraVENous, Every 12 hours scheduled (2 times per day), First dose on Thu10/20/23 at 2155 Start: 10-20-2023 End: 10-27-2023 take 100 mL intravenously every hour as needed, then take 20 mL intravenously every hour as needed 5-250 mL/hr, IntraVENous, PRN, if patient receiving piggyback infusions and maintenance fluids are not ordered OR KVO fluids to protect IV site / prevent frequent line interruptions/ long duration, Starting on Thu10/20/23 at 2154, For piggyback infusion, administer at same rate as piggyback for a total of 25 mL. Enter 25 mL into dose field and piggyback rate into rate field of order. If piggyback is infusing at a rate less than 100 mL/hr, enter 25 mL into dose field and 100 mL/hr into rate field of order. For KVO fluids, enter rate of 20 mL/hr or less into rate field of order. Start: 10-20-2023 End: 10-27-2023 take 10 mL intravenously once as needed 10 mL, IntraVENous, PRN, line care, Starting on Thu10/20/23 at 2154, After every IV line use Start: 10-20-2023 End: 10-20-2023 sodium chloride 0.9 % bolus 1,000 mL Start: 07-03-2023 End: 07-03-2023 sodium chloride 0.9 % infusi on Start: 06-30-2023 End: 07-01-2023 take 100 mL intravenously every hour 100 mL/hr, IntraVENous, Continuous, Starting on Thu06/30/23 at 2110 Start: 04-14-2023 End: 04-14-2023 sodium chloride 0.9 % infusi on Start: 04-09-2023 End: 04-09-2023 sodium chloride 0.9 % bolus 1,000 mL Start: 02-13-2023 End: 02-14-2024 sodium chloride tablet 1 g Start: 02-12-2023 End: 02-12-2023 sodium chloride 0.9 % infusi on Start: 02-10-2023 End: 02-14-2023 take 100 mL intravenously every hour 100 mL/hr, IntraVENous, Continuous, Starting on Thu02/10/23 at 2320 Start: 02-10-2023 End: 02-11-2023 sodium chloride 0.9 % bolus 1,000 mL Start: 01-05-2023 End: 01-05-2023 sodium chloride 0.9 % bolus 500 mL Start: 01-05-2023 End: 01-05-2023 sodium chloride 0.9 % infusi on Start: 01-05-2023 End: 01-05-2023 sodium chloride 0.9% (NS) fl ush 10 mL Start: 12-22-2022 End: 12-23-2022 take 100 mL intravenously every hour 100 mL/hr, IntraVENous, Continuous, Starting on Thu12/22/22 at 2110 Start: 12-22-2022 End: 12-22-2022 sodium chloride 0.9 % bolus 1,000 mL Start: 06-04-2022 take 1 dose intraven ously twice daily 5-40 mL, IntraVENous, EVERY 12 HOURS SCHEDULED (2 times per day), First dose on Thu06/04/22 at 0900, Until Discontinued For Line Patency: Peripheral IV = 5 mL; Midline or Central Line = 10 mL/lumen. If following IV push medication, administer flush at same rate as the IV push. Flush volume is determined by type of infusion therapy being given. For non-viscous solutions use: Peripheral IV = 5 mL Midline or Central Line = 10 mL/lumen For viscous solutions (i.e. blood components, parenteral nutrition, contrast media, or after obtaining blood sample) use: Peripheral IV = 10 mL Midline or Central Line = 20 mL/lumen Start: 06-04-2022 IntraVENous, a t 5-250 mL/hr, PRN, if patient receiving piggyback infusions and maintenance fluids are not ordered OR KVO fluids to protect IV site / prevent frequent line interruptions/ long duration, Starting on Thu06/04/22 at 0236 For piggyback infusion, administer at same rate as piggyback for a total of 25 mL. Enter 25 mL into dose field and piggyback rate into rate field of order. If piggyback is infusing at a rate less than 100 mL/hr, enter 25 mL into dose field and 100 mL/hr into rate field of order. For KVO fluids, enter rate of 20 mL/hr or less into rate field of order. Start: 06-04-2022 take 5-40 mL intrave nously once as needed 5-40 mL, IntraVENous, PRN, Starting on Thu06/04/22 at 0236, Until Discontinued, Line Care, After every IV line use For Line Patency: Peripheral IV = 5 mL; Midline or Central Line = 10 mL/lumen. If following IV push medication, administer flush at same rate as the IV push. Flush volume is determined by type of infusion therapy being given. For non-viscous solutions use: Peripheral IV = 5 mL Midline or Central Line = 10 mL/lumen For viscous solutions (i.e. blood components, parenteral nutrition, contrast media, or after obtaining blood sample) use: Peripheral IV = 10 mL Midline or Central Line = 20 mL/lumen Start: 06-04-2022 End: 06-04-2022 0.9 % sodium chloride infusi on Start: 06-03-2022 End: 06-03-2022 0.9 % sodium chloride bolus Start: 05-15-2022 End: 05-15-2022 0.9 % sodium chloride bolus Start: 06-24-2020 End: 06-25-2020 0.9 % sodium chloride bolus stomahesive in petrolatum (ET Mix) (2 sources) Start: 01-15-2024 End: 01-26-2024 stomahesive in petrolatum (ET Mix) sulfacetamide sodium 100 mg/ml ophthalmic solution (1 source) Sulfonamide Antibacterial Start: 11-28-2019 End: 06-25-2022 take 2 drop(s) into the eye(s) every four hours sulfacetamide (BLEPH-10) 10 % ophthalmic solution instill TWO DROPS in THE affected EYE EVERY FOUR HOURS WHILE AWAKE 0 11/28/2019 06/25/2022 Discontinued Comment on above: instill TWO DROPS in THE affected EYE EVERY FOUR HOURS WHILE AWAKE testosterone micronized, bulk, 100 % powd (1 source) Start: 04-30-2017 End: 06-25-2022 testosterone micronized, bulk, 100 % powd therapeutic multivitamin-mineral s (Theragran-M) tablet (2 sources) Start: 04-02-2023 End: 04-07-2023 therapeutic multivitamin-minera ls (Theragran-M) tablet thiamine hydrochloride 100 mg/ml injectable solution (20 sources) Start: 07-05-2024 End: 07-07-2024 100 mg, IntraVENous, Daily, First dose on Thu07/05/24 at 0900, For 3 doses Start: 07-04-2024 End: 07-04-2024 100 mg, IntraVENous, Once, O n 07/04/24 at 1725, For 1 dose Start: 04-10-2023 End: 07-05-2024 take 1 tablet by mouth once daily thiamine (Vitamin B-1) 100 MG tablet Take 1 tablet (100 mg) by mouth daily. Do not start before April 16, 2023. 30 tablet 04/16/2023 07/05/2024 Discontinued (Therapy completed) Start: 04-03-2023 End: 04-07-2023 Thiamine Mononitrate (Vitami n B1) tablet 100 mg Start: 04-02-2023 End: 04-02-2023 Thiamine Mononitrate (Vitami n B1) tablet 100 mg Start: 06-07-2022 take 1 tablet by remy once daily thiamine 100 MG tablet Take 1 tablet by mouth daily 30 tablet 0 06/07/2022 Active Start: 06-04-2022 End: 02-11-2023 thiamine (Vitamin B-1) 100 M G tablet Every 24 hours. 0 06/04/2022 02/11/2023 Discontinued (Therapy completed) Start: 06-04-2022 End: 06-06-2023 take 1 tablet by mouth once daily thiamine (Vitamin B-1) 100 MG tablet TAKE 1 TABLET BY MOUTH DAILY 30 tablet 0 06/06/2022 12/22/2022 Discontinued vitamin b12 0.1 mg oral tablet (20 sources) Vitamin B12 Start: 04-03-2023 End: 04-07-2023 cyanocobalamin (Vitamin B-12 ) tablet 100 mcg inject 1 mL by intra muscular injection every month cyanocobalamin (Vitamin B-12) 1000 MCG/ML injection Indications: Vitamin B12 Deficiency 1 mL intramuscularly once a month Active inject 1 mL by intra muscular injection every month cyanocobalamin (Vitamin B-12) 1000 MCG/ML injection Indications: Vitamin B12 Deficiency 1 mL intramuscularly once a month Suspended inject 1 mL by intra muscular injection every month cyanocobalamin (Vitamin B-12) 1000 MCG/ML injection 1 mL intramuscularly once a month Suspended inject 1 mL by intra muscular injection every month cyanocobalamin (Vitamin B-12) 1000 MCG/ML injection 1 mL intramuscularly once a month Active inject 1 mL by intra muscular injection every month cyanocobalamin (Vitamin B-12) 1000 MCG/ML injection 1 mL intramuscularly once a month 0 Active End: 01-28-2023 Cyanocobalamin 5000 MCG tabl et dispersible Infuse into a venous catheter every 30 (thirty) days. 0 01/28/2023 Discontinued End: 01-28-2023 Cyanocobalamin (VITAMIN B-12 IJ) Inject as directed every 30 (thirty) days. 0 01/28/2023 Discontinued End: 01-05-2023 Cyanocobalamin (Vitamin B-12 ) 5000 MCG tablet dispersible every 12 hours. 0 01/05/2023 Discontinued (Therapy completed) Cyanocobalamin ( VITAMIN B-12 IJ) Inject as directed every 30 (thirty) days. 0 Active zolpidem tartrate 5 mg oral tablet (2 sources) gamma-Aminobutyric Acid-ergic Agonist Start: 07-04-2023 End: 07-05-2023 zolpidem (Ambien) tablet 5 mg Problems Active Problems Problem Classification Problem Date Documented Da te Episodic/Chronic Alcohol-related disorders (20 sources) Alcoholic cirrhosis of liver without ascites; Translations: [Chronic alcoholic hepatitis] Onset: 06-10-2017 Chronic Allergic reactions (4 sources) Allergy status to penicillin; Translations: [Allergy status to other drugs, medicaments and biological substances status] Onset: 05-15-2022 Episodic Anxiety disorders (5 sources) Anxiety disorder, unspecified; Translations: [Chronic post-traumatic stress disorder] Onset: 06-04-2022 Chronic Asthma (20 sources) Unspecified asthma, uncomplicated; Translations: [Asthma] Onset: 06-10-2017 08-26-2017 Chronic Calculus of urinary tract (2 sources) Calculus of kidney; Translations: [Calculus of kidney] Onset: 06-04-2022 Episodic Deficiency and other anemia (5 sources) Other pancytopenia; Translations: [Other pancytopenia] Onset: 06-04-2022 Chronic Deficiency and other anemia (20 sources) Pancytopenia; Translations: [Other pancytopenia] Onset: 01-20-2024 01-20-2024 Chronic Diabetes mellitus without complication (20 sources) Type 2 diabetes mellitus without complications; Translations: [Diabetes mellitus] Onset: 06-10-2017 08-26-2017 Chronic Disorders of lipid metabolism (20 sources) Hyperlipidemia, unspecified; Translations: [Hyperlipidemia] Onset: 06-10-2017 08-26-2017 Chronic E Codes: Adverse effects of medical drugs (2 sources) Adverse effect of loop [high-ceiling] diuretics, initial encounter; Translations: [Adverse effect of loop diuretics, initial encounter] Onset: 06-04-2022 Episodic E Codes: Fall (1 source) Unspecified fall, initial encounter; Translations: [Unspecified fall, initial encounter] Onset: 05-26-2024 Episodic E Codes: Unspecified (2 sources) Blood alcohol level of 120-199 mg/100 ml; Translations: [Blood alcohol level of 120-199 mg/100 ml] Onset: 06-04-2022 Episodic Essential hypertension (20 sources) Essential (primary) hypertension; Translations: [Essential hypertension] Onset: 06-10-2017 08-26-2017 Chronic Gastritis and duodenitis (2 sources) Gastritis, unspecified, without bleeding; Translations: [Gastritis, unspecified, without bleeding] Onset: 06-04-2022 Episodic Gout and other crystal arthropathies (2 sources) Gout, unspecified; Translations: [Gout, unspecified] Onset: 06-04-2022 Chronic Hepatitis (2 sources) Chronic viral hepatitis C; Translations: [Chronic viral hepatitis C] Onset: 06-04-2022 Chronic Malaise and fatigue (2 sources) Malaise and fatigue; Translations: [Weakness] Onset: 05-26-2024 Episodic Menopausal disorders (2 sources) Hormone replacement therapy; Translations: [Hormone replacement therapy] Onset: 06-04-2022 Episodic Mood disorders (20 sources) Recurrent major depressive episodes, mild ; Translations: [Major depressive disorder, recurrent, mild] Onset: 11-06-2022 11-06-2022 Chronic Mood disorders (20 sources) Mood disorders; Translations: [Depression, unspecified] Onset: 04-03-2023 Resolved: 07-23-2024 Nutritional deficiencies (20 sources) Nutritional marasmus; Translations: [Unspecified severe protein-calorie malnutrition] Onset: 06-04-2022 Chronic Other aftercare (2 sources) terminal gauger supervisor (current) use of oral hypoglycemic drugs; Translations: [skilled nursing (current) use of oral hypoglycemic drugs] Onset: 06-04-2022 Episodic Other aftercare (2 sources) terminal gauger supervisor (current) use of bisphosphonates; Translations: [terminal gauger supervisor (current) use of bisphosphonates] Onset: 06-04-2022 Episodic Other aftercare (2 sources) skilled nursing (current) use of opiate analgesic; Translations: [terminal gauger supervisor (current) use of opiate analgesic] Onset: 06-04-2022 Episodic Other aftercare (2 sources) Other computer terminal operator (current) drug therapy; Translations: [Other skilled nursing (current) drug therapy] Onset: 05-15-2022 Episodic Other aftercare (1 source) Postoperative visit; Translations: [Encounter for other specified surgical aftercare] Episodic Other circulatory disease (2 sources) Hypotension, unspecified; Translations: [Hypotension, unspecified] Onset: 06-04-2022 Episodic Other gastrointestinal disorders (1 source) History of esophageal varices; Translations: [Personal history of other diseases of the digestive system] Episodic Other gastrointestinal disorders (1 source) Diarrhea; Translations: [Diarrhea, unspecified] Episodic Other infections; including parasitic (2 sources) History of hepatitis C; Translations: [Personal history of other infectious and parasitic diseases] Episodic Other liver diseases (2 sources) Unspecified cirrhosis of liver; Translations: [Inflammatory liver disease, unspecified] Onset: 06-10-2017 Chronic Other liver diseases (20 sources) Inflammatory disease of liver; Translations: [Inflammatory liver disease, unspecified] Onset: 08-26-2017 08-26-2017 Chronic Other liver diseases (20 sources) Cirrhosis of liver; Translations: [Unspecified cirrhosis of liver] Onset: 08-26-2017 08-26-2017 Chronic Other nervous system disorders (2 sources) Other chronic pain; Translations: [Other chronic pain] Onset: 06-04-2022 Chronic Other nervous system disorders (20 sources) Chronic pain syndrome; Translations: [Chronic pain syndrome] Onset: 11-06-2022 11-06-2022 Chronic Other nutritional; endocrine; and metabolic disorders (1 source) Other disorders of phosphorus metabolism; Translations: [Other disorders of phosphorus metabolism] Onset: 04-08-2024 Chronic Other nutritional; endocrine; and metabolic disorders (3 sources) Hypomagnesemia; Translations: [Hypomagnesemia] Onset: 04-08-2024 Chronic Other nutritional; endocrine; and metabolic disorders (2 sources) Ketosis; Translations: [Other specified metabolic disorders] 07-04-2024 Chronic Other nutritional; endocrine; and metabolic disorders (2 sources) Hypomagnesemia; Translations: [Hypomagnesemia] 07-05-2024 Chronic Other nutritional; endocrine; and metabolic disorders (2 sources) Other specified metabolic disorders; Translations: [Other specified metabolic disorders (HCC)] Onset: 07-04-2024 Chronic Residual codes; unclassified (20 sources) Sleep apnea; Translations: [Sleep apnea, unspecified] Onset: 08-26-2017 08-26-2017 Chronic Residual codes; unclassified (20 sources) Obstructive sleep apnea syndrome; Translations: [Obstructive sleep apnea (adult) (pediatric)] Onset: 08-26-2017 12-29-2022 Chronic Residual codes; unclassified (2 sources) Edema of lower extremity; Translations: [Localized edema] 01-20-2024 Episodic Residual codes; unclassified (2 sources) Current drinker; Translations: [Other specified health status] 07-04-2024 Episodic Residual codes; unclassified (3 sources) Amnesia; Translations: [Other amnesia] Onset: 07-26-2024 07-26-2024 Episodic Screening and history of mental health and substance abuse codes (2 sources) Personal history of nicotine dependence; Translations: [Personal history of nicotine dependence] Onset: 06-04-2022 Episodic Septicemia (except in labor) (2 sources) Severe sepsis without septic shock; Translations: [Severe sepsis without septic shock] Onset: 06-04-2022 Episodic Spondylosis; intervertebral disc disorders; other back problems (20 sources) Disorder of joint of spine; Translations: [Other spondylosis with radiculopathy, lumbar region] Onset: 03-12-2018 03-12-2018 Chronic Thyroid disorders (2 sources) 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, unspecified; Translations: [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, unspecified] Onset: 06-04-2022 Chronic Unclassified (2 sources) Alcohol use, unspecified with withdrawal, unspecified; Translations: [Alcohol use, unspecified with withdrawal, unspecified] Onset: 06-04-2022 Unclassified (1 source) Low back pain, unspecified; Translations: [Low back pain, unspecified] Onset: 05-15-2022 Unclassified (1 source) Alcohol use, unspecified with withdrawal, uncomplicated; Translations: [Alcohol use, unspecified with withdrawal, uncomplicated] Onset: 04-08-2024 Unclassified (1 source) Alcohol abuse with withdrawal, unspecified; Translations: [Alcohol abuse with withdrawal, unspecified] Onset: 06-14-2024 Unclassified (1 source) Elevation of levels of liver transaminase levels; Translations: [Elevation of levels of liver transaminase levels] Onset: 05-26-2024 Unclassified (1 source) Alcohol use, unspecified with withdrawal delirium; Translations: [Alcohol use, unspecified with withdrawal delirium] Onset: 04-08-2024 Unclassified (1 source) Alcohol use, unspecified, uncomplicated; Translations: [Alcohol use, unspecified, uncomplicated] Onset: 07-24-2024 Unclassified (1 source) Other acidosis; Translations: [Other acidosis] Onset: 07-04-2024 Unclassified (1 source) Alcohol use, unspecified with withdrawal, uncomplicated (HCC); Translations: [Alcohol use, unspecified with withdrawal, uncomplicated (HCC)] Onset: 01-15-2024 Viral infection (2 sources) Disease caused by 2019-nCoV; Translations: [COVID-19] 01-15-2024 Episodic Viral infection (2 sources) COVID-19; Translations: [COVID-19] Onset: 01-15-2024 Past or Other Problems Problem Classification Problem Date Documented Date Episodic/Chronic Abdominal pain (20 sources) Right flank pain; Translations: [Unspecified abdominal pain] Onset: 05-15-2022 Episodic Acute and unspecified renal failure (20 sources) Acute kidney failure, unspecified; Translations: [Acute injury of kidney] Onset: 06-04-2022 Episodic Alcohol-related disorders (8 sources) Alcohol intoxication; Translations: [Alcohol use, unspecified with intoxication, uncomplicated] Onset: 06-04-2022 Episodic Biliary tract disease (20 sources) Hydrops of gallbladder; Translations: [Hydrops of gallbladder] Onset: 01-05-2023 Episodic Complications of surgical procedures or medical care (20 sources) Complication of surgical procedure; Translations: [Unspecified complication of procedure, initial encounter] Onset: 11-06-2022 11-06-2022 Episodic Conditions associated with dizziness or vertigo (20 sources) Postural dizziness; Translations: [Dizziness and giddiness] Onset: 06-04-2022 Episodic Fluid and electrolyte disorders (20 sources) Dehydration; Translations: [Dehydration] Onset: 06-03-2022 Episodic Genitourinary symptoms and ill-defined conditions (1 source) Discharge from penis; Translations: [Penile discharge] Episodic Medical examination/evaluatio n (1 source) Encounter for other preprocedural examination; Translations: [Encounter for other preprocedural examination] Onset: 06-10-2017 Episodic Nausea and vomiting (20 sources) Nausea; Translations: [Nausea and vomiting] Onset: 06-04-2022 Episodic Nonspecific chest pain (20 sources) Pain of intercostal space; Translations: [Intercostal pain] Onset: 11-06-2022 11-06-2022 Episodic Other connective tissue disease (20 sources) Muscle pain; Translations: [Myalgia, unspecified site] Onset: 11-06-2022 11-06-2022 Episodic Other connective tissue disease (20 sources) Recurrent falls ; Translations: [Repeated falls] Onset: 07-01-2023 07-01-2023 Episodic Other connective tissue disease (20 sources) Falls; Translations: [Repeated falls] Onset: 06-26-2023 10-21-2023 Episodic Other non-traumatic joint disorders (20 sources) Pain in right hip joint; Translations: [Pain in right hip] Onset: 11-06-2022 11-06-2022 Episodic Other non-traumatic joint disorders (20 sources) Shoulder joint pain; Translations: [Pain in unspecified shoulder] Onset: 11-06-2022 11-06-2022 Episodic Other non-traumatic joint disorders (10 sources) Hip pain; Translations: [Pain in right hip] Onset: 11-06-2022 11-06-2022 Episodic Other screening for suspected conditions (not mental disorders or infectious disease) (6 sources) Computed tomography result abnormal; Translations: [Abnormal findings on diagnostic imaging of other parts of digestive tract] Onset: 04-04-2024 Episodic Pancreatic disorders (not diabetes) (20 sources) Alcohol-induced acute pancreatitis; Translations: [Alcohol induced acute pancreatitis without necrosis or infection] Onset: 10-20-2023 10-26-2023 Episodic Residual codes; unclassified (20 sources) Alcoholism; Translations: [Alcohol use disorder] Onset: 04-02-2023 04-02-2023 Episodic Residual codes; unclassified (2 sources) Other specified health status; Translations: [Other specified health status] Onset: 07-04-2024 Episodic Residual codes; unclassified (2 sources) Localized edema; Translations: [Localized edema] Onset: 01-15-2024 Episodic Spondylosis; intervertebral disc disorders; other back problems (20 sources) Spinal stenosis, lumbar region; Translations: [Spinal stenosis of lumbar region] Onset: 06-10-2017 08-26-2017 Episodic Suicide and intentional self-inflicted injury (5 sources) Suicidal thoughts; Translations: [Suicidal ideations] Onset: 07-22-2024 07-22-2024 Episodic Syncope (5 sources) Syncope and collapse; Translations: [Syncope and collapse] Onset: 04-04-2024 Episodic Thyroid disorders (20 sources) Disorder of thyroid gland; Translations: [Disorder of thyroid, unspecified] Onset: 08-26-2017 08-26-2017 Episodic Unclassified (1 source) Alcohol use, unspecified with withdrawal, unspecified; Translations: [Alcohol use, unspecified with withdrawal, unspecified] Onset: 06-04-2022 Unclassified (1 source) Low back pain, unspecified; Translations: [Low back pain, unspecified] Onset: 05-15-2022 Unclassified (1 source) Alcohol use, unspecified with withdrawal, uncomplicated; Translations: [Alcohol use, unspecified with withdrawal, uncomplicated] Onset: 04-08-2024 Unclassified (1 source) Alcohol use, unspecified, uncomplicated; Translations: [Alcohol use, unspecified, uncomplicated] Onset: 07-22-2024 Unclassified (1 source) Other acidosis; Translations: [Other acidosis] Onset: 07-04-2024 Unclassified (1 source) Alcohol use, unspecified with withdrawal, uncomplicated (HCC); Translations: [Alcohol use, unspecified with withdrawal, uncomplicated (HCC)] Onset: 01-15-2024 Results Test Name Value [facility] 36on 10-03-[address] [place] [address] [id number] 08-01-[id number] [facility] Behavioral Health Treatment Planon 08-01-2024 Behavioral Health Treatment Plan Normal [facility] CARECOORDon 08-01-2024 [place] Normal [facility] CARECOORD TCT brother in law, l/m re dc today Normal [facility] IDNon 08-01-2024 IDN Normal [facility] IDN Normal [facility] Nursing Noteon 08-01-2024 Nursing Note Discharge instructtom salcido reviewed, all questions answered, all concerns addressed. Patient declined flu vaccine stating he will follow up with his PCP. Normal [facility] Nursing Note Normal [facility] Nursing Note Normal [facility] Progress Noteon 08-01-2024 Progress Note TCT Piotr, updated re dc today. Grateful for care and tx Normal [facility] Nursing Noteon 07-31-2024 Nursing Note Patient approached R N requesting throat spray and vistaril. Patient stated he was having some pain in his throat and having some generalized anxiety. PRN vistaril and throat spray given. Normal [facility] Nursing Note Assumed care of harika ent. Patient denies needs at this time. Normal [facility] Nursing Note Pt pleasant, coopera tive, AOx 3, Denies pain, Denies thoughts of harm to self and others, no delusional thinking voiced. Compliant with meds. Gait steady with walker, speech clear. No s/s of physical distress noted. Normal [facility] Nursing Note Normal [facility] Progress Noteon 07-31-2024 Progress Note Normal [facility] IDNon 07-30-2024 IDN Normal [facility] IDN Normal [facility] IDN Normal [facility] IDN Normal [facility] IDN Normal [facility] Nursing Noteon 07-30-2024 Nursing Note Normal [facility] Nursing Note Tums 500 mg given fo r indigestion at 1623. Normal [facility] Nursing Note Vistaril 50 mg PO gi oziel for anxiety after redirection was ineffective. Normal [facility] Nursing Note Normal [facility] Nursing Note Pt complaining of restlessness and increased anxiety. Agreeable to PRN Vistaril, given at this time. Normal [facility] Progress Noteon 07-30-2024 Progress Note Normal [facility] Progress Note Normal [facility] BASIC METABOLIC PANELon 07-19 Anion gap [Moles/Vol] 7 mmol/L Normal 3-13 [facility] Comment on above: Performed By: #### L AB15 ####Flame Channeler: ARA WRIGHT ([phone])[facility])[address] [place] [address] Calcium [Mass/Vol] 9.4 mg/dL Normal 8.4-10.4 [facility] Comment on above: Performed By: #### L AB15 ####Flame Channeler: ARA WRIGHT ([phone])[facility])[address] [place] [address] Chloride [Moles/Vol] 109 mmol/L High 98-107 [facility] Comment on above: Performed By: #### L AB15 ####Flame Channeler: ARA WRIGHT ([id number])[facility] ([facility])[address] [place] [address] CO2 [Moles/Vol] 17 mmol/L Low 22-30 [facility] Comment on above: Performed By: #### L AB15 ####Flame Channeler: ARA WRIGHT ([phone])[facility])[address] [place] [address] Creatinine [Mass/Vol] 0.92 mg/dL Normal 0.66-1.25 [facility] Comment on above: Performed By: #### L AB15 ####Flame Channeler: ARA WRIGHT ([phone])[facility])[address] [place] [address] GLOMERULAR FILTRATION RATE ML/MIN/1.73 SQ M.PREDICTED >90.0 Normal >60.0 [facility] Comment on above: Result Comment: Calc ulation based on the Chronic Kidney Disease Epidemiology Collaboration (CKD-EPI) equation refit without adjustment for race Performed By: #### L AB15 ####Flame Channeler: ARA [id number])[facility] [place] [address] Glucose [Mass/Vol] 111 mg/dL High 70-100 [facility] Comment on above: Performed By: #### L AB15 ####Flame Channeler: ARA WRIGHT ([id number])[facility] ([facility])[address] [place] [address] Potassium [Moles/Vol] 4.4 mmol/L Normal 3.5-5.1 [facility] Comment on above: Performed By: #### L AB15 ####Flame Channeler: ARA WRIGHT ([phone])[facility] ([facility])[address] [place] [address] Sodium [Moles/Vol] 134 mmol/L Low 135-145 [facility] Comment on above: Performed By: #### L AB15 ####Flame Channeler: ARA WRIGHT ([phone])[facility] ([facility])[address] [place] [address] Urea nitrogen [Mass/Vol] 17 mg/dL Normal 9-20 [facility] Comment on above: Performed By: #### L AB15 ####Flame Channeler: ARA WRIGHT ([phone])[facility] ([facility])[address] [place] [address] CARECOORDon 07-29-2024 [place] Spoke to admissions [facility] and [facility] pt will not qualify for CD treatment at facilities. Normal [facility] CAR[place]OORD Normal [facility] Nursing Noteon 07-29-2024 Nursing Note Normal [facility] Nursing Note PRN Vistaril effecti ve. Patient requesting PRN Tylenol and PRN Tums. Rates sinus pain / and has complaints of acid reflux. Normal [facility] Nursing Note Patient requesting P RN Vistaril for anxiety rated 8/ Normal [facility] Nursing Note Normal [facility] Nursing Note Patient is calm and cooperative with care and medication. Alert and oriented x 3 watching TV with peers. Denies pain SI, HI, visual and Auditory hallucination. No voiced concerns or stressors at this time. Safety precaution maintained. Normal [facility] Progress Noteon 07-29-2024 Progress Note Normal [facility] CARECOORDon 07-28-2024 CAR[place]OORD Normal [facility] GROUPNOTEon 07-28-2024 GROUPNOTE Normal [facility] IDNon 07-28-2024 IDN Normal [facility] IDN Consuming supplement s. Will increase Magic cup to tid Normal [facility] IDN Normal [facility] Nursing Noteon 07-28-2024 Nursing Note Tylenol 650 mg given for generalized pain, Vistaril 50 mg given for anxiety and Tums given for indigestion. Normal [facility] Nursing Note Normal [facility] Nursing Note Vistaril 50 mg PO gi oziel for anxiety after redirection was ineffective. Normal [facility] Nursing Note Patient given Tums 5 00 mg for indigestion. Normal [facility] Progress Noteon 07-28-2024 Progress Note Normal [facility] Progress Note Normal [facility] Progress Note Normal [facility] Progress Note Normal [facility] CARECOORDon 07-27-2024 CAR[place]OORD TCT FARIBA, l/m Normal [facility] IDNon 07-27-2024 IDN Normal [facility] Nursing Noteon 07-27-2024 Nursing Note Normal [facility] Nursing Note Patient up with walk er and a steady gait. Resting in bed, social with staff and peers. Normal [facility] Nursing Note Normal [facility] Nursing Note PRN tylenol and vist aril effective Normal [facility] Nursing Note PRN tylenol for pain and vistaril for anxiety given Normal [facility] Progress Noteon 07-27-2024 Progress Note Normal [facility] 36on 07-26-2024 36 Called and spoke yuri Gillespie and scheduled hosp f/up with ALYSSA Armas on 09/13/2024 at 3:00 pm. Thank you [facility] BASIC METABOLIC PANELon 10-0 8-2024 Anion gap [Moles/Vol] 8 mmol/L Normal 3-13 [facility] Comment on above: Performed By: #### L AB15 ####Flame Channeler: ARA WRIGHT ([phone])[facility] ([facility])[address] [place] [address] Calcium [Mass/Vol] 9.4 mg/dL Normal 8.4-10.4 [facility] Comment on above: Performed By: #### L AB15 ####Flame Channeler: ARA WRIGHT ([id number])[facility] [place] [address] Chloride [Moles/Vol] 104 mmol/L Normal 98-107 [facility] Comment on above: Performed By: #### L AB15 ####Flame Channeler: ARA WRIGHT ([phone])[facility] [place] [address] CO2 [Moles/Vol] 17 mmol/L Low 22-30 [facility] Comment on above: Performed By: #### L AB15 ####Flame Channeler: ARA WRIGHT ([phone])[facility] ([facility])[address] [place] [address] Creatinine [Mass/Vol] 0.84 mg/dL Normal 0.66-1.25 [facility] Comment on above: Performed By: #### L AB15 ####Flame Channeler: ARA WRIGHT ([phone])[facility] ([facility])[address] [place] [address] GLOMERULAR FILTRATION RATE ML/MIN/1.73 SQ M.PREDICTED >90.0 Normal >60.0 [facility] Comment on above: Result Comment: Calc ulation based on the Chronic Kidney Disease Epidemiology Collaboration (CKD-EPI) equation refit without adjustment for race Performed By: #### L AB15 ####Flame Channeler: ARA WRIGHT ([id number])[facility] [place] [address] Glucose [Mass/Vol] 100 mg/dL Normal 70-100 [facility] Comment on above: Performed By: #### L AB15 ####Flame Channeler: ARA WRIGHT ([phone])[facility])[address] [place] [address] Potassium [Moles/Vol] 4.4 mmol/L Normal 3.5-5.1 [facility] Comment on above: Performed By: #### L AB15 ####Flame Channeler: ARA WRIGHT ([phone])[facility])[address] [place] [address] Sodium [Moles/Vol] 129 mmol/L Low 135-145 [facility] Comment on above: Performed By: #### L AB15 ####Flame Channeler: ARA WRIGHT ([phone])[facility])[address] [place] [address] Urea nitrogen [Mass/Vol] 14 mg/dL Normal 9-20 [facility] Comment on above: Performed By: #### L AB15 ####Flame Channeler: ARA WRIGHT ([id number])[facility])[address] [place] [address] CARECOORDon 07-26-2024 [place] TCT PRADEEP Saldaña l/m [facility] Consulton 07-26-2024 Consult Normal [facility] GROUPNOTEon 07-26-2024 GROUPNOTE Normal [facility] IDNon 07-26-2024 IDN Normal [facility] IDN Normal [facility] Nursing Noteon 07-26-2024 Nursing Note PRN tylenol and vist aril effective Normal [facility] Nursing Note Normal [facility] Nursing Note Patient became sad o olinda another patient who was confused on the unit and felt she reminded him of his mother. Patient wanted to then be in his room for a little bit and was feeling anxious. Prn PO vistaril given for anxiety. Normal [facility] Nursing Note Normal [facility] Nursing Note PRN vistaril, tyleno l and TUMS effective Normal [facility] Nursing Note PRN Vistaril for anx iety, TUMS for heartburn, and tylenol for headache pain given. Normal [facility] Progress Noteon 07-26-2024 Progress Note Normal [facility] Progress Note Normal [facility] Progress Note Normal [facility] Progress Note Normal [facility] BASIC METABOLIC PANELon 10-0 Anion gap [Moles/Vol] 10 mmol/L Normal 3-13 [facility] Comment on above: Performed By: #### L AB15 ####Flame Channeler: ARA WRIGHT ([phone])[facility])[address] [place] [address] Calcium [Mass/Vol] 9.6 mg/dL Normal 8.4-10.4 [facility] Comment on above: Performed By: #### L AB15 ####Flame Channeler: ARA WRIGHT ([phone])[facility])[address] [place] [address] Chloride [Moles/Vol] 104 mmol/L Normal 98-107 [facility] Comment on above: Performed By: #### L AB15 ####Flame Channeler: ARA WRIGHT ([phone])[facility] ([facility])[address] [place] [address] CO2 [Moles/Vol] 16 mmol/L Low 22-30 [facility] Comment on above: Performed By: #### L AB15 ####Flame Channeler: ARA WRIGHT ([phone])[facility])[address] [place] [address] Creatinine [Mass/Vol] 0.84 mg/dL Normal 0.66-1.25 [facility] Comment on above: Performed By: #### L AB15 ####Flame Channeler: ARA WRIGHT ([phone])[facility])[address] [place] [address] GLOMERULAR FILTRATION RATE ML/MIN/1.73 SQ M.PREDICTED >90.0 Normal >60.0 [facility] Comment on above: Result Comment: Calc ulation based on the Chronic Kidney Disease Epidemiology Collaboration (CKD-EPI) equation refit without adjustment for race Performed By: #### L AB15 ####Flame Channeler: ARA WRIGHT ([phone])[facility] [place] [address] Glucose [Mass/Vol] 113 mg/dL High 70-100 [facility] Comment on above: Performed By: #### L AB15 ####Flame Channeler: ARA WRIGHT ([phone])[facility] ([facility])[address] [place] [address] Potassium [Moles/Vol] 4.2 mmol/L Normal 3.5-5.1 [facility] Comment on above: Performed By: #### L AB15 ####Flame Channeler: ARA WRIGHT ([phone])[facility] ([facility])[address] [place] [address] Sodium [Moles/Vol] 130 mmol/L Low 135-145 [facility] Comment on above: Performed By: #### L AB15 ####Flame Channeler: ARA WRIGHT ([phone])[facility] ([facility])[address] [place] [address] Urea nitrogen [Mass/Vol] 14 mg/dL Normal 9-20 [facility] Comment on above: Performed By: #### L AB15 ####Flame Channeler: ARA WRIGHT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 Pt requested P RN tylenol for pain. Pt rated pain a 3/10. PRN tylenol was administered. No further concerns at this time. Normal [facility] Progress Noteon 07-15-2024 Progress Note Normal [facility] Progress Note Normal [facility] Progress Note Normal [facility] XR FOREARM 2 VIEWS RIGHTon 0 07-15-2024 XR FOREARM 2 VIEWS RIGHT Normal [facility] GROUPNOTEon 07-14-2024 GROUPNOTE Normal [facility] Nursing Noteon 07-14-2024 Nursing Note Normal [facility] Nursing Note Normal [facility] Nursing Note Normal [facility] Nursing Note Normal [facility] Progress Noteon 07-14-2024 Progress Note Normal [facility] Progress Note Normal [facility] Progress Note Normal [facility] GROUPNOTEon 07-13-2024 GROUPNOTE Normal [facility] IDNon 07-13-2024 IDN Normal [facility] IDN Normal [facility] Nursing Noteon 07-13-2024 Nursing Note Normal [facility] Nursing Note Normal [facility] Progress Noteon 07-13-2024 Progress Note Normal [facility] XR CHEST 1 VIEWon 07-13-2024 XR CHEST 1 VIEW Normal [facility] BASIC METABOLIC PANELon 06-20 Anion gap [Moles/Vol] 10 mmol/L Normal 3-13 [facility] Comment on above: Performed By: #### L AB15 ####Flame Channeler: ARA WRIGHT ([phone])[facility])[address] [place] [address] [place] Calcium [Mass/Vol] 9.5 mg/dL Normal 8.4-10.4 [facility] Comment on above: Performed By: #### L AB15 ####Flame Channeler: ARA WRIGHT ([id number])[facility] ([facility])[address] [place] [address] [place] Chloride [Moles/Vol] 103 mmol/L Normal 98-107 [facility] Comment on above: Performed By: #### L AB15 ####Flame Channeler: ARA WRIGHT ([id number])[facility] ([facility])[address] [place] [address] [place] CO2 [Moles/Vol] 19 mmol/L Low 22-30 [facility] Comment on above: Performed By: #### L AB15 ####Flame Channeler: ARA WRIGHT ([id number])[facility] ([facility])[address] [place] [address] [place] Creatinine [Mass/Vol] 1.00 mg/dL Normal 0.66-1.25 [facility] Comment on above: Performed By: #### L AB15 ####Flame Channeler: ARA WRIGHT ([phone])[facility])[address] [place] [address] GLOMERULAR FILTRATION RATE ML/MIN/1.73 SQ M.PREDICTED 84.0 mL/min/1.73m*2 Normal >60.0 [facility] Comment on above: Result Comment: Calc ulation based on the Chronic Kidney Disease Epidemiology Collaboration (CKD-EPI) equation refit without adjustment for race Performed By: #### L AB15 ####Flame Channeler: ARA WRIGHT ([id number])[facility] ([facility])[address] [place] [address] Glucose [Mass/Vol] 129 mg/dL High 70-100 [facility] Comment on above: Performed By: #### L AB15 ####Flame Channeler: ARA WRIGHT ([phone])[facility])[address] [place] [address] Potassium [Moles/Vol] 4.2 mmol/L Normal 3.5-5.1 [facility] Comment on above: Performed By: #### L AB15 ####Flame Channeler: ARA WRIGHT ([id number])[facility] ([facility])[address] [place] [address] Sodium [Moles/Vol] 132 mmol/L Low 135-145 [facility] Comment on above: Performed By: #### L AB15 ####Flame Channeler: ARA WRIGHT ([phone])[facility])[address] [place] [address] Urea nitrogen [Mass/Vol] 14 mg/dL Normal 9-20 [facility] Comment on above: Performed By: #### L AB15 ####Flame Channeler: ARA WRIGHT ([phone])[facility])[address] [place] [address] [place] GROUPNOTEon 07-12-2024 GROUPNOTE Normal [facility] Nursing Noteon 09-24-2024 Nursing Note Normal [facility] Progress Noteon 07-12-2024 Progress Note Normal [facility] Progress Note Normal [facility] Behavioral Health Treatment Planon 07-11-2024 Behavioral Health Treatment Plan Normal [facility] CARECOORDon 07-11-2024 CARECOORD Normal [facility] CARECOORD Normal [facility] CARECOORD IMM letter given to patient. Normal [facility] Consulton 07-11-2024 Consult Normal [facility] IDNon 07-11-2024 IDN Normal [facility] LIPID PANELon 07-11-2024 Cholesterol [Mass/Vol] 170 mg/dL Normal <200 [facility] Comment on above: Order Comment: If no t done within last 12 months Performed By: #### L AB129, LAB18 ####Flame Channeler: ARA WRIGHT ([phone])[address] Cholesterol in HDL [Mass/Vol] 55 mg/dL Normal 40-60 [facility] Comment on above: Order Comment: If no t done within last 12 months Performed By: #### L AB129, LAB18 ####Flame Channeler: ARA WRIGHT ([phone])[address] Cholesterol.total/Chol esterol in HDL [Mass ratio] 3 {ratio} Normal [facility] Comment on above: Order Comment: If no t done within last 12 months Result Comment: Ref Range:< 3 Low Risk for CHD3-6 Mod Risk for CHD> 6 High Risk for CHD Performed By: #### L AB129, LAB18 ####Flame Channeler: ARA WRIGHT ([phone])[address] LOW DENSITY LIPOPROTEIN 80 mg/dL Normal 0-<100 [facility] Comment on above: Order Comment: If no t done within last 12 months Performed By: #### L AB129, LAB18 ####Flame Channeler: ARA [id number])[facility] ([facility])[address] [place] [address] Triglyceride [Mass/Vol] 175 mg/dL High <150 [facility] Comment on above: Order Comment: If no t done within last 12 months Performed By: #### L AB129, LAB18 ####Flame Channeler: ARA WRIGHT ([id number])[facility] ([facility])[address] [place] [address] Nursing Noteon 07-11-2024 Nursing Note Normal [facility] Nursing Note Pt withdrawn to room , denies any physical concerns at this time. Pt encouraged to perform ADLs and join peers for meals. Report called to Chitra CROWLEY. Normal [facility] Nursing Note Pt pleasant, coopera tive, AOx 3, Denies pain, Denies thoughts of harm to self and others, no delusional thinking voiced. Compliant with medications. Gait steady with walker, speech clear. No s/s of physical distress noted. ADLs encouraged Normal [facility] Nursing Note Pt mostly secluded t o room, admits to periods of depression but feels safe on the unit and denies SI HI or AVH, was med compliant. Up for a brief period of time to eat a snack and use bathroom at 0130. Behavior in control. Normal [facility] Progress Noteon 07-11-2024 Progress Note Normal [facility] Progress Note Normal [facility] Progress Note Normal [facility] THYROID STIMULATING HORMONEo n 07-11-2024 THYROID STIMULATING HORMONE 7.622 uIU/mL High 0.465-4.680 [facility] Comment on above: Performed By: #### L AB129, LAB18 ####Flame Channeler: ARA WRIGHT ([id number])[facility] ([facility])[address] [place] [address] BASIC METABOLIC PANELon 06-20 Anion gap [Moles/Vol] 8 mmol/L Normal 3-13 [facility] Comment on above: Performed By: #### L AB15 ####Flame Channeler: ARA WRIGHT ([phone])[facility] ([facility])[address] [place] [address] Calcium [Mass/Vol] 9.2 mg/dL Normal 8.4-10.4 [facility] Comment on above: Performed By: #### L AB15 ####Flame Channeler: ARA WRIGHT ([id number])[facility] ([facility])[address] [place] [address] Chloride [Moles/Vol] 107 mmol/L Normal 98-107 [facility] Comment on above: Performed By: #### L AB15 ####Flame Channeler: ARA WRIGHT ([phone])[facility] ([facility])[address] [place] [address] CO2 [Moles/Vol] 21 mmol/L Low 22-30 [facility] Comment on above: Performed By: #### L AB15 ####Flame Channeler: ARA WRIGHT ([phone])[facility] ([facility])[address] [place] [address] Creatinine [Mass/Vol] 0.99 mg/dL Normal 0.66-1.25 [facility] Comment on above: Performed By: #### L AB15 ####Flame Channeler: ARA WRIGHT ([id number])[facility] ([facility])[address] [place] [address] GLOMERULAR FILTRATION RATE ML/MIN/1.73 SQ M.PREDICTED 85.1 mL/min/1.73m*2 Normal >60.0 [facility] Comment on above: Result Comment: Calc ulation based on the Chronic Kidney Disease Epidemiology Collaboration (CKD-EPI) equation refit without adjustment for race Performed By: #### L AB15 ####Flame Channeler: ARA WRIGHT ([id number])[facility] ([facility])[address] [place] [address] [place] Glucose [Mass/Vol] 137 mg/dL High 70-100 [facility] Comment on above: Performed By: #### L AB15 ####Flame Channeler: ARA WRIGHT ([phone])[facility] ([facility])[address] [place] [address] Potassium [Moles/Vol] 4.2 mmol/L Normal 3.5-5.1 [facility] Comment on above: Performed By: #### L AB15 ####Flame Channeler: ARA WRIGHT ([id number])[facility] ([facility])[address] [place] [address] Sodium [Moles/Vol] 136 mmol/L Normal 135-145 [facility] Comment on above: Performed By: #### L AB15 ####Flame Channeler: ARA WRIGHT ([id number])[facility] ([facility])[address] [place] [address] Urea nitrogen [Mass/Vol] 13 mg/dL Normal 9-20 [facility] Comment on above: Performed By: #### L AB15 ####Flame Channeler: ARA WRIGHT ([phone])[facility] ([facility])[address] [place] [address] Basic metabolic 1998 panelon 07-10-2024 Anion gap [Moles/Vol] 8 mmol/L 3 - 13 mmol/L [facility] Calcium [Mass/Vol] 9.2 mg/dL 8.4 - 10. 4 mg/dL [facility] Chloride [Moles/Vol] 107 mmol/L 98 - 10 7 mmol/L [facility] CO2 [Moles/Vol] 21 mmol/L Low 22 - 30 mmol/L [facility] Creatinine [Mass/Vol] 0.99 mg/dL 0.66 - 1.25 mg/dL [facility] GFR/1.73 sq M.predicted (S/P/Bld) [Vol rate/Area] 85.1 mL/min - [facility] Comment on above: Calculation based on the Chronic Kidney Disease Epidemiology Collaboration (CKD-EPI) equation refit without adjustment for race Glucose [Mass/Vol] 137 mg/dL High 70 - 100 mg/dL [facility] Interpretation and review of laboratory results Abnormal [facility] Potassium [Moles/Vol] 4.2 mmol/L 3.5 - 5.1 mmol/L [facility] Sodium [Moles/Vol] 136 mmol/L 135 - 145 mmol/L [facility] Urea nitrogen [Mass/Vol] 13 mg/dL 9 - 20 mg/dL [facility] CARECOORDon 07-10-2024 CARECOORD Normal [facility] CBC (HEMOGRAM)on 07-10-2024 Erythrocyte distribution width (RBC) [Ratio] 14.3 % Normal 11.5-15.0 [facility] Comment on above: Performed By: #### L AB294 ####Flame Channeler: ARA WRIGHT ([id number])[facility])[address] [place] [address] Hematocrit (Bld) [Volume fraction] 29.2 % Low 40.0-52.0 [facility] Comment on above: Performed By: #### L AB294 ####Flame Channeler: ARA WRIGHT ([phone])[facility])[address] [place] [address] Hemoglobin (Bld) [Mass/Vol] 9.8 g/dL Low 13.0-18.0 [facility] Comment on above: Performed By: #### L AB294 ####Flame Channeler: ARA WRIGHT ([phone])[facility])[address] [place] [address] MCH (RBC) [Entitic mass] 30.5 pg Normal 26.0-34.0 [facility] Comment on above: Performed By: #### L AB294 ####Flame Channeler: ARA WRIGHT ([phone])[facility])[address] [place] [address] MCHC 33.6 % Normal 30.5-36.0 [facility] Comment on above: Performed By: #### L AB294 ####Flame Channeler: ARA WRIGHT ([phone])[facility])[address] [place] [address] MCV (RBC) [Entitic vol] 91.0 fL Normal 77.0-99.0 [facility] Comment on above: Performed By: #### L AB294 ####Flame Channeler: ARA WRIGHT ([id number])[facility])[address] [place] [address] Platelet mean volume (Bld) [Entitic vol] 10.4 fL Normal 9.0-12.7 [facility] Comment on above: Performed By: #### L AB294 ####Flame Channeler: ARA WRIGHT ([id number])[facility] ([facility])[address] [place] [address] Platelets (Bld) [#/Vol] 150 10*3/uL Normal 140-440 [facility] Comment on above: Performed By: #### L AB294 ####Flame Channeler: ARA WRIGHT ([id number])[facility] ([facility])[address] [place] [address] RBC (Bld) [#/Vol] 3.21 10*6/uL Low 4.40-5.90 [facility] Comment on above: Performed By: #### L [id number] ####Flame Channeler: ARA WRIGHT ([id number])[facility] ([facility])[address] [place] [address] WBC (Bld) [#/Vol] 5.7 10*3/uL Normal 3.6-10.7 [facility] Comment on above: Performed By: #### L [id number] ####Flame Channeler: ARA WRIGHT ([phone])[facility] ([facility])[address] [place] [address] CBC panel Auto (Bld)on 07-10 Erythrocyte distribution width (RBC) [Ratio] 14.3 % 11.5 - 15.0 % [facility] Hematocrit (Bld) [Volume fraction] 29.2 % Low 40.0 - 52.0 % [facility] Hemoglobin (Bld) [Mass/Vol] 9.8 g/dL Low 13.0 - 18.0 g/dL [facility] Interpretation and review of laboratory results Abnormal [facility] MCH (RBC) [Entitic mass] 30.5 pg 26.0 - 34.0 pg [facility] MCHC (RBC) [Mass/Vol] 33.6 % 30.5 - 36.0 % [facility] MCV (RBC) [Entitic vol] 91.0 fL 77.0 - 99.0 fL [facility] Platelet mean volume (Bld) [Entitic vol] 10.4 fL 9.0 - 12.7 fL [facility] Platelets (Bld) [#/Vol] 150 10*3/uL 140 - 440 10*3/uL [facility] RBC (Bld) [#/Vol] 3.21 10*6/uL Low 4.40 - 5.9 0 10*6/uL [facility] WBC (Bld) [#/Vol] 5.7 10*3/uL 3.6 - 10.7 10*3/uL [facility] IDNon 07-10-2024 IDN Normal [facility] IDN Normal [facility] Laboratory - Microbiology an d Antimicrobial susceptibilityOrdered By: Daniel Madison on 07-10-2024 SARS-CoV-2 (COVID-19) Ag IA.rapid Ql (Resp) Negative Negative [facility] Comment on above: A negative result do es not rule out the possibility of SARS-CoV-2 infection. NAAT-based methods should be considered for symptomatic patients presenting greater than seven days after onset of symptoms. Method: Lateral flow immunoassay. Fact sheets for healthcare providers and patients can be found at the following sites: https://www.fda.gov/media/605507/download https://www.fda.gov/media/277035/download Nursing Noteon 07-10-2024 Nursing Note Notified Resp about patient's Tx ordered. Normal [facility] Nursing Note Patient did not want a resp TX, his lungs are clear, no SOB. Pulse ox was 97% on RA. Normal [facility] Nursing Note Normal [facility] Progress Noteon 07-10-2024 Progress Note Nutrition update completed. Chart reviewed. Patient to be monitored and followed by the diet ammonia technician. LATRICE José Normal [facility] Progress Note Normal [facility] Progress Note Normal [facility] Progress Note Normal [facility] SARS-COV-2 ANTIGENon 024 SARS-COV-2 ANTIGEN Normal [facility] Comment on above: Performed By: #### L [id number] ####Flame Channeler: ARA WRIGHT ([phone])[address] SARS-CoV-2 (COVID-19) Ag IA. rapid Ql (Resp)Ordered By: Daniel Madison on 07-10-2024 Interpretation and review of laboratory results Normal [facility] BASIC METABOLIC PANELon 06-20 Anion gap [Moles/Vol] 8 mmol/L Normal 3-13 [facility] Comment on above: Performed By: #### L [id number] ####Flame Channeler: ARA WRIGHT ([phone])[facility])[address] [place] [address] Calcium [Mass/Vol] 9.0 mg/dL Normal 8.4-10.4 [facility] Comment on above: Performed By: #### L AB15 ####Flame Channeler: ARA WRIGHT ([id number])[facility])[address] [place] [address] Chloride [Moles/Vol] 109 mmol/L High 98-107 [facility] Comment on above: Performed By: #### L AB15 ####Flame Channeler: ARA WRIGHT ([id number])[facility] ([facility])[address] [place] [address] CO2 [Moles/Vol] 18 mmol/L Low 22-30 [facility] Comment on above: Performed By: #### L AB15 ####Flame Channeler: ARA WRIGHT ([phone])[facility])[address] [place] [address] Creatinine [Mass/Vol] 0.93 mg/dL Normal 0.66-1.25 [facility] Comment on above: Performed By: #### L AB15 ####Flame Channeler: ARA WRIGHT ([phone])[facility])[address] [place] [address] GLOMERULAR FILTRATION RATE ML/MIN/1.73 SQ M.PREDICTED >90.0 Normal >60.0 [facility] Comment on above: Result Comment: Calc ulation based on the Chronic Kidney Disease Epidemiology Collaboration (CKD-EPI) equation refit without adjustment for race Performed By: #### L AB15 ####Flame Channeler: ARA WRIGHT ([id number])[facility] ([facility])[address] [place] [address] Glucose [Mass/Vol] 125 mg/dL High 70-100 [facility] Comment on above: Performed By: #### L AB15 ####Flame Channeler: ARA WRIGHT ([phone])[facility] ([facility])[address] [place] [address] Potassium [Moles/Vol] 3.9 mmol/L Normal 3.5-5.1 [facility] Comment on above: Performed By: #### L AB15 ####Flame Channeler: ARA WRIGHT ([phone])[facility] ([facility])[address] [place] [address] Sodium [Moles/Vol] 135 mmol/L Normal 135-145 [facility] Comment on above: Performed By: #### L AB15 ####Flame Channeler: ARA WRIGHT ([phone])[facility] ([facility])[address] [place] [address] Urea nitrogen [Mass/Vol] 8 mg/dL Low 9-20 [facility] Comment on above: Performed By: #### L AB15 ####Flame Channeler: ARA WRIGHT ([phone])[facility])[address] [place] [address] Basic metabolic 1998 panelon 07-09-2024 Anion gap [Moles/Vol] 8 mmol/L 3 - 13 mmol/L [facility] Calcium [Mass/Vol] 9.0 mg/dL 8.4 - 10. 4 mg/dL [facility] Chloride [Moles/Vol] 109 mmol/L High 98 - 10 7 mmol/L [facility] CO2 [Moles/Vol] 18 mmol/L Low 22 - 30 mmol/L [facility] Creatinine [Mass/Vol] 0.93 mg/dL 0.66 - 1.25 mg/dL [facility] GFR/1.73 sq M.predicted (S/P/Bld) [Vol rate/Area] - PINF [facility] Comment on above: Calculation based on the Chronic Kidney Disease Epidemiology Collaboration (CKD-EPI) equation refit without adjustment for race Glucose [Mass/Vol] 125 mg/dL High 70 - 100 mg/dL [facility] Interpretation and review of laboratory results Abnormal [facility] Potassium [Moles/Vol] 3.9 mmol/L 3.5 - 5.1 mmol/L [facility] Sodium [Moles/Vol] 135 mmol/L 135 - 145 mmol/L [facility] Urea nitrogen [Mass/Vol] 8 mg/dL Low 9 - 20 mg/dL [facility] CBC (HEMOGRAM)on 07-09-2024 Erythrocyte distribution width (RBC) [Ratio] 13.9 % Normal 11.5-15.0 [facility] Comment on above: Performed By: #### L [id number] ####Flame Channeler: ARA WRIGHT ([phone])[address] Hematocrit (Bld) [Volume fraction] 28.3 % Low 40.0-52.0 [facility] Comment on above: Performed By: #### L [id number] ####Flame Channeler: ARA WRIGHT ([phone])[address] Hemoglobin (Bld) [Mass/Vol] 9.8 g/dL Low 13.0-18.0 [facility] Comment on above: Performed By: #### L [id number] ####Flame Channeler: ARA WRIGHT ([id number])[facility])[address] [place] [address] MCH (RBC) [Entitic mass] 30.8 pg Normal 26.0-34.0 [facility] Comment on above: Performed By: #### L [id number] ####Flame Channeler: ARA WRIGHT ([id number])[address] MCHC 34.6 % Normal 30.5-36.0 [facility] Comment on above: Performed By: #### L [id number] ####Flame Channeler: ARA WRIGHT ([phone])[facility] ([facility])[address] [place] [address] MCV (RBC) [Entitic vol] 89.0 fL Normal 77.0-99.0 [facility] Comment on above: Performed By: #### L [id number] ####Flame Channeler: ARA WRIGHT ([id number])[facility])[address] [place] [address] Platelet mean volume (Bld) [Entitic vol] 9.7 fL Normal 9.0-12.7 [facility] Comment on above: Performed By: #### L [id number] ####Flame Channeler: ARA WRIGHT ([phone])[facility])[address] [place] [address] Platelets (Bld) [#/Vol] 164 10*3/uL Normal 140-440 [facility] Comment on above: Performed By: #### L [id number] ####Flame Channeler: ARA WRIGHT ([id number])[facility])[address] [place] [address] RBC (Bld) [#/Vol] 3.18 10*6/uL Low 4.40-5.90 [facility] Comment on above: Performed By: #### L [id number] ####Flame Channeler: ARA WRIGHT ([phone])[facility])[address] [place] [address] WBC (Bld) [#/Vol] 6.3 10*3/uL Normal 3.6-10.7 [facility] Comment on above: Performed By: #### L [id number] ####Flame Channeler: ARA WRIGHT ([id number])[facility])[address] [place] [address] CBC panel Auto (Bld)on 07-09 Erythrocyte distribution width (RBC) [Ratio] 13.9 % 11.5 - 15.0 % [facility] Hematocrit (Bld) [Volume fraction] 28.3 % Low 40.0 - 52.0 % [facility] Hemoglobin (Bld) [Mass/Vol] 9.8 g/dL Low 13.0 - 18.0 g/dL [facility] Interpretation and review of laboratory results Abnormal [facility] MCH (RBC) [Entitic mass] 30.8 pg 26.0 - 34.0 pg [facility] MCHC (RBC) [Mass/Vol] 34.6 % 30.5 - 36.0 % [facility] MCV (RBC) [Entitic vol] 89.0 fL 77.0 - 99.0 fL [facility] Platelet mean volume (Bld) [Entitic vol] 9.7 fL 9.0 - 12.7 fL [facility] Platelets (Bld) [#/Vol] 164 10*3/uL 140 - 440 10*3/uL [facility] RBC (Bld) [#/Vol] 3.18 10*6/uL Low 4.40 - 5.9 0 10*6/uL [facility] WBC (Bld) [#/Vol] 6.3 10*3/uL 3.6 - 10.7 10*3/uL [facility] IDNon 07-09-2024 IDN Normal [facility] Nursing Noteon 07-09-2024 Nursing Note Normal [facility] Progress Noteon 07-09-2024 Progress Note Normal [facility] BASIC METABOLIC PANELon 06-20 Anion gap [Moles/Vol] 5 mmol/L Normal 3-13 [facility] Comment on above: Performed By: #### L AB15 ####Flame Channeler: ARA WRIGHT ([id number])[address] Calcium [Mass/Vol] 8.9 mg/dL Normal 8.4-10.4 [facility] Comment on above: Performed By: #### L AB15 ####Flame Channeler: ARA WRIGHT ([phone])[facility] ([facility])[address] [place] [address] Chloride [Moles/Vol] 108 mmol/L High 98-107 [facility] Comment on above: Performed By: #### L AB15 ####Flame Channeler: ARA WRIGHT ([phone])[facility] ([facility])[address] [place] [address] CO2 [Moles/Vol] 22 mmol/L Normal 22-30 [facility] Comment on above: Performed By: #### L AB15 ####Flame Channeler: ARA WRIGHT ([id number])[facility] ([facility])[address] [place] [address] Creatinine [Mass/Vol] 0.90 mg/dL Normal 0.66-1.25 [facility] Comment on above: Performed By: #### L AB15 ####Flame Channeler: ARA WRIGHT ([phone])[facility] ([facility])[address] [place] [address] GLOMERULAR FILTRATION RATE ML/MIN/1.73 SQ M.PREDICTED >90.0 Normal >60.0 [facility] Comment on above: Result Comment: Calc ulation based on the Chronic Kidney Disease Epidemiology Collaboration (CKD-EPI) equation refit without adjustment for race Performed By: #### L AB15 ####Flame Channeler: ARA WRIGHT ([phone])[facility] ([facility])[address] [place] [address] [place] Glucose [Mass/Vol] 97 mg/dL Normal 70-100 [facility] Comment on above: Performed By: #### L AB15 ####Flame Channeler: ARA WRIGHT ([id number])[facility] ([facility])[address] [place] [address] [place] Potassium [Moles/Vol] 4.0 mmol/L Normal 3.5-5.1 [facility] Comment on above: Performed By: #### L AB15 ####Flame Channeler: ARA WRIGHT ([id number])[facility] ([facility])[address] [place] [address] [place] Sodium [Moles/Vol] 135 mmol/L Normal 135-145 [facility] Comment on above: Performed By: #### L AB15 ####Flame Channeler: ARA WRIGHT ([id number])[facility] ([facility])[address] [place] [address] [place] Urea nitrogen [Mass/Vol] 8 mg/dL Low 9-20 [facility] Comment on above: Performed By: #### L AB15 ####Flame Channeler: ARA WRIGHT ([id number])[facility])[address] [place] [address] Basic metabolic 1998 panelon 07-08-2024 Anion gap [Moles/Vol] 5 mmol/L 3 - 13 mmol/L [facility] Calcium [Mass/Vol] 8.9 mg/dL 8.4 - 10. 4 mg/dL [facility] Chloride [Moles/Vol] 108 mmol/L High 98 - 10 7 mmol/L [facility] CO2 [Moles/Vol] 22 mmol/L 22 - 30 mmol/L [facility] Creatinine [Mass/Vol] 0.90 mg/dL 0.66 - 1.25 mg/dL [facility] GFR/1.73 sq M.predicted (S/P/Bld) [Vol rate/Area] - PINF [facility] Comment on above: Calculation based on the Chronic Kidney Disease Epidemiology Collaboration (CKD-EPI) equation refit without adjustment for race Glucose [Mass/Vol] 97 mg/dL 70 - 100 mg/dL [facility] Interpretation and review of laboratory results Abnormal [facility] Potassium [Moles/Vol] 4.0 mmol/L 3.5 - 5.1 mmol/L [facility] Sodium [Moles/Vol] 135 mmol/L 135 - 145 mmol/L [facility] Urea nitrogen [Mass/Vol] 8 mg/dL Low 9 - 20 mg/dL [facility] CARECOORDon 07-08-2024 CARECOORD Normal [facility] CARECOORD Normal [facility] CBC (HEMOGRAM)on 07-08-2024 Erythrocyte distribution width (RBC) [Ratio] 13.8 % Normal 11.5-15.0 [facility] Comment on above: Performed By: #### L [id number] ####Flame Channeler: ARA WRIGHT ([id number])[facility] ([facility])[address] [place] [address] Hematocrit (Bld) [Volume fraction] 29.1 % Low 40.0-52.0 [facility] Comment on above: Performed By: #### L [id number] ####Flame Channeler: ARA WRIGHT ([id number])[facility] ([facility])[address] [place] [address] Hemoglobin (Bld) [Mass/Vol] 10.0 g/dL Low 13.0-18.0 [facility] Comment on above: Performed By: #### L [id number] ####Flame Channeler: ARA WRIGHT ([phone])[facility])[address] [place] [address] MCH (RBC) [Entitic mass] 30.8 pg Normal 26.0-34.0 [facility] Comment on above: Performed By: #### L [id number] ####Flame Channeler: ARA WRIGHT ([phone])[facility])[address] [place] [address] MCHC 34.4 % Normal 30.5-36.0 [facility] Comment on above: Performed By: #### L [id number] ####Flame Channeler: ARA WRIGHT ([id number])[facility] ([facility])[address] [place] [address] MCV (RBC) [Entitic vol] 89.5 fL Normal 77.0-99.0 [facility] Comment on above: Performed By: #### L [id number] ####Flame Channeler: ARA WRIGHT ([id number])[facility] ([facility])[address] [place] [address] Platelet mean volume (Bld) [Entitic vol] 9.5 fL Normal 9.0-12.7 [facility] Comment on above: Performed By: #### L [id number] ####Flame Channeler: ARA WRIGHT ([id number])[facility] ([facility])[address] [place] [address] Platelets (Bld) [#/Vol] 172 10*3/uL Normal 140-440 [facility] Comment on above: Performed By: #### L [id number] ####Flame Channeler: ARA WRIGHT ([id number])[facility])[address] [place] [address] RBC (Bld) [#/Vol] 3.25 10*6/uL Low 4.40-5.90 [facility] Comment on above: Performed By: #### L [id number] ####Flame Channeler: ARA WRIGHT ([id number])[facility] ([facility])[address] [place] [address] WBC (Bld) [#/Vol] 5.4 10*3/uL Normal 3.6-10.7 [facility] Comment on above: Performed By: #### L [id number] ####Flame Channeler: ARA WRIGHT ([id number])[facility] [place] [address] CBC panel Auto (Bld)on 07-08 Erythrocyte distribution width (RBC) [Ratio] 13.8 % 11.5 - 15.0 % [facility] Hematocrit (Bld) [Volume fraction] 29.1 % Low 40.0 - 52.0 % [facility] Hemoglobin (Bld) [Mass/Vol] 10.0 g/dL Low 13.0 - 18.0 g/dL [facility] Interpretation and review of laboratory results Abnormal [facility] MCH (RBC) [Entitic mass] 30.8 pg 26.0 - 34.0 pg [facility] MCHC (RBC) [Mass/Vol] 34.4 % 30.5 - 36.0 % [facility] MCV (RBC) [Entitic vol] 89.5 fL 77.0 - 99.0 fL [facility] Platelet mean volume (Bld) [Entitic vol] 9.5 fL 9.0 - 12.7 fL [facility] Platelets (Bld) [#/Vol] 172 10*3/uL 140 - 440 10*3/uL [facility] RBC (Bld) [#/Vol] 3.25 10*6/uL Low 4.40 - 5.9 0 10*6/uL [facility] WBC (Bld) [#/Vol] 5.4 10*3/uL 3.6 - 10.7 10*3/uL [facility] IDNon 07-08-2024 IDN Normal [facility] IDN Normal [facility] IDN Normal [facility] Laboratory - Chemistry and C hemistry - challengeon 07-08-2024 Fat Ql (Stl) Normal Normal [facility] Comment on above: INTERPRETIVE INFORMA TION: Fecal Fat Qualitative Neutral fats include the monoglycerides, diglycerides, and triglycerides while split fats are the free fatty acids that are liberated from them. Impaired synthesis or secretion of pancreatic enzymes or bile may cause an increase in neutral fats while an increase in split fats suggests impaired absorption of nutrients. Performed By: [facility] [address] [place] [id number] Auto Adjud[employer] Specialist: Ana Heredia MD, PhD CLIA Number: [id number] Fat.neutral Ql (Stl) Normal Normal [facility] No Panel Informationon 07-08 [facility] Progress Noteon 07-08-2024 Progress Note Normal [facility] Progress Note Normal [facility] Progress Note Normal [facility] Progress Note Normal [facility] 36on 07-07-2024 36 Pt is currently admi tted. Will contact pt when he get discharge. Thank you Normal [facility] 36 GI Staff to schedule d hospital follow up and colonoscopy once discharged. Normal [facility] BASIC METABOLIC PANELon 06-19 Anion gap [Moles/Vol] 5 mmol/L Normal 3-13 [facility] Comment on above: Performed By: #### L AB15 ####Flame Channeler: ARA WRIGHT ([phone])[facility] ([facility])[address] [place] [address] Calcium [Mass/Vol] 8.5 mg/dL Normal 8.4-10.4 [facility] Comment on above: Performed By: #### L AB15 ####Flame Channeler: ARA WRIGHT ([phone])[facility] ([facility])[address] [place] [address] [place] Chloride [Moles/Vol] 111 mmol/L High 98-107 [facility] Comment on above: Performed By: #### L AB15 ####Flame Channeler: ARA WRIGHT ([id number])[facility] ([facility])[address] [place] [address] [place] CO2 [Moles/Vol] 17 mmol/L Low 22-30 [facility] Comment on above: Performed By: #### L AB15 ####Flame Channeler: ARA WRIGHT ([phone])[facility])[address] [place] [address] Creatinine [Mass/Vol] 0.86 mg/dL Normal 0.66-1.25 [facility] Comment on above: Performed By: #### L AB15 ####Flame Channeler: ARA WRIGHT ([phone])[facility])[address] [place] [address] GLOMERULAR FILTRATION RATE ML/MIN/1.73 SQ M.PREDICTED >90.0 Normal >60.0 [facility] Comment on above: Result Comment: Calc ulation based on the Chronic Kidney Disease Epidemiology Collaboration (CKD-EPI) equation refit without adjustment for race Performed By: #### L AB15 ####Flame Channeler: ARA WRIGHT ([id number])[facility])[address] [place] [address] Glucose [Mass/Vol] 131 mg/dL High 70-100 [facility] Comment on above: Performed By: #### L AB15 ####Flame Channeler: ARA WRIHGT ([phone])[facility])[address] [place] [address] Potassium [Moles/Vol] 3.9 mmol/L Normal 3.5-5.1 [facility] Comment on above: Performed By: #### L AB15 ####Flame Channeler: ARA WRIGHT ([phone])[facility])[address] [place] [address] [place] Sodium [Moles/Vol] 134 mmol/L Low 135-145 [facility] Comment on above: Performed By: #### L AB15 ####Flame Channeler: ARA WRIGHT ([phone])[facility])[address] [place] [address] [place] Urea nitrogen [Mass/Vol] 9 mg/dL Normal 9-20 [facility] Comment on above: Performed By: #### L AB15 ####Flame Channeler: ARA WRIGHT ([id number])[facility] ([facility])[address] [place] [address] Basic metabolic 1998 panelon 07-07-2024 Anion gap [Moles/Vol] 5 mmol/L 3 - 13 mmol/L [facility] Calcium [Mass/Vol] 8.5 mg/dL 8.4 - 10. 4 mg/dL [facility] Chloride [Moles/Vol] 111 mmol/L High 98 - 10 7 mmol/L [facility] CO2 [Moles/Vol] 17 mmol/L Low 22 - 30 mmol/L [facility] Creatinine [Mass/Vol] 0.86 mg/dL 0.66 - 1.25 mg/dL [facility] GFR/1.73 sq M.predicted (S/P/Bld) [Vol rate/Area] - PINF [facility] Comment on above: Calculation based on the Chronic Kidney Disease Epidemiology Collaboration (CKD-EPI) equation refit without adjustment for race Glucose [Mass/Vol] 131 mg/dL High 70 - 100 mg/dL [facility] Interpretation and review of laboratory results Abnormal [facility] Potassium [Moles/Vol] 3.9 mmol/L 3.5 - 5.1 mmol/L [facility] Sodium [Moles/Vol] 134 mmol/L Low 135 - 145 mmol/L [facility] Urea nitrogen [Mass/Vol] 9 mg/dL 9 - 20 mg/dL [facility] CARECOORDon 07-07-2024 CARECOORD Normal [facility] CBC (HEMOGRAM)on 07-07-2024 Erythrocyte distribution width (RBC) [Ratio] 13.6 % Normal 11.5-15.0 [facility] Comment on above: Performed By: #### L [id number] ####Flame Channeler: ARA WRIGHT ([id number])[facility] ([facility])[address] [place] [address] Hematocrit (Bld) [Volume fraction] 27.4 % Low 40.0-52.0 [facility] Comment on above: Performed By: #### L [id number] ####Flame Channeler: ARA WRIGHT ([id number])[facility] ([facility])[address] [place] [address] Hemoglobin (Bld) [Mass/Vol] 9.5 g/dL Low 13.0-18.0 [facility] Comment on above: Performed By: #### L [id number] ####Flame Channeler: ARA WRIGHT ([phone])[facility])[address] [place] [address] MCH (RBC) [Entitic mass] 30.7 pg Normal 26.0-34.0 [facility] Comment on above: Performed By: #### L [id number] ####Flame Channeler: ARA WRIGHT ([id number])[facility])[address] [place] [address] MCHC 34.7 % Normal 30.5-36.0 [facility] Comment on above: Performed By: #### L [id number] ####Flame Channeler: ARA WRIGHT ([phone])[facility] ([facility])[address] [place] [address] MCV (RBC) [Entitic vol] 88.7 fL Normal 77.0-99.0 [facility] Comment on above: Performed By: #### L [id number] ####Flame Channeler: ARA WRIGHT ([phone])[facility])[address] [place] [address] Platelet mean volume (Bld) [Entitic vol] 9.7 fL Normal 9.0-12.7 [facility] Comment on above: Performed By: #### L [id number] ####Flame Channeler: ARA WRIGHT ([id number])[facility] ([facility])[address] [place] [address] Platelets (Bld) [#/Vol] 176 10*3/uL Normal 140-440 [facility] Comment on above: Performed By: #### L [id number] ####Flame Channeler: ARA WRIGHT ([phone])[facility])[address] [place] [address] RBC (Bld) [#/Vol] 3.09 10*6/uL Low 4.40-5.90 [facility] Comment on above: Performed By: #### L [id number] ####Flame Channeler: ARA WRIGHT ([phone])[facility] ([facility])[address] [place] [address] WBC (Bld) [#/Vol] 5.3 10*3/uL Normal 3.6-10.7 [facility] Comment on above: Performed By: #### L [id number] ####Flame Channeler: ARA WRIGHT ([phone])[facility] [place] [address] CBC panel Auto (Bld)on 07-07 Erythrocyte distribution width (RBC) [Ratio] 13.6 % 11.5 - 15.0 % [facility] Hematocrit (Bld) [Volume fraction] 27.4 % Low 40.0 - 52.0 % [facility] Hemoglobin (Bld) [Mass/Vol] 9.5 g/dL Low 13.0 - 18.0 g/dL [facility] Interpretation and review of laboratory results Abnormal [facility] MCH (RBC) [Entitic mass] 30.7 pg 26.0 - 34.0 pg [facility] MCHC (RBC) [Mass/Vol] 34.7 % 30.5 - 36.0 % [facility] MCV (RBC) [Entitic vol] 88.7 fL 77.0 - 99.0 fL [facility] Platelet mean volume (Bld) [Entitic vol] 9.7 fL 9.0 - 12.7 fL [facility] Platelets (Bld) [#/Vol] 176 10*3/uL 140 - 440 10*3/uL [facility] RBC (Bld) [#/Vol] 3.09 10*6/uL Low 4.40 - 5.9 0 10*6/uL [facility] WBC (Bld) [#/Vol] 5.3 10*3/uL 3.6 - 10.7 10*3/uL [facility] IDNon 07-07-2024 IDN Normal [facility] IDN Normal [facility] IDN Normal [facility] Nursing Noteon 07-07-2024 Nursing Note This nurse entered r oom, patient was bleeding from his Right arm 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 Notified Physician. Normal [facility] Progress Noteon 07-07-2024 Progress Note Normal [facility] Progress Note Normal [facility] Progress Note Normal [facility] Progress Note Normal [facility] Progress Note Normal [facility] 36on 07-06-2024 36 Patient evaluated inpatient for diarrhea and abdominal pain. Needs OP colonoscopy. OV and please use inpatient colon spot for colonoscopy. Ok for LEENA. Normal [facility] BASIC METABOLIC PANELon 06-19 Anion gap [Moles/Vol] 10 mmol/L Normal 3-13 [facility] Comment on above: Performed By: #### L AB103, LAB15 ####Flame Channeler: ARA WRIGHT ([phone])[facility])[address] [place] [address] Calcium [Mass/Vol] 8.9 mg/dL Normal 8.4-10.4 [facility] Comment on above: Performed By: #### L AB103, LAB15 ####Flame Channeler: ARA WRIGHT ([phone])[facility])[address] [place] [address] Chloride [Moles/Vol] 108 mmol/L High 98-107 [facility] Comment on above: Performed By: #### L AB103, LAB15 ####Flame Channeler: ARA WRIGHT ([phone])[facility])[address] [place] [address] CO2 [Moles/Vol] 16 mmol/L Low 22-30 [facility] Comment on above: Performed By: #### L AB103, LAB15 ####Flame Channeler: ARA WRIGHT ([phone])[facility])[address] [place] [address] Creatinine [Mass/Vol] 0.93 mg/dL Normal 0.66-1.25 [facility] Comment on above: Performed By: #### L AB103, LAB15 ####Flame Channeler: ARA [id number])[facility])[address] [place] [address] GLOMERULAR FILTRATION RATE ML/MIN/1.73 SQ M.PREDICTED >90.0 Normal >60.0 [facility] Comment on above: Result Comment: Calc ulation based on the Chronic Kidney Disease Epidemiology Collaboration (CKD-EPI) equation refit without adjustment for race Performed By: #### L AB103, LAB15 ####Flame Channeler: ARA WRIGHT ([id number])[facility] ([facility])[address] [place] [address] Glucose [Mass/Vol] 184 mg/dL High 70-100 [facility] Comment on above: Performed By: #### L AB103, LAB15 ####Flame Channeler: ARA WRIGHT ([phone])[facility])[address] [place] [address] Potassium [Moles/Vol] 3.4 mmol/L Low 3.5-5.1 [facility] Comment on above: Performed By: #### L AB103, LAB15 ####Flame Channeler: ARA WRIGHT ([phone])[facility] ([facility])[address] [place] [address] Sodium [Moles/Vol] 135 mmol/L Normal 135-145 [facility] Comment on above: Performed By: #### L AB103, LAB15 ####Flame Channeler: ARA WRIGHT ([phone])[facility])[address] [place] [address] Urea nitrogen [Mass/Vol] 13 mg/dL Normal 9-20 [facility] Comment on above: Performed By: #### L AB103, LAB15 ####Flame Channeler: ARA WRIGHT ([phone])[facility])[address] [place] [address] Basic metabolic 1998 panelon 07-06-2024 Anion gap [Moles/Vol] 10 mmol/L 3 - 13 mmol/L [facility] Calcium [Mass/Vol] 8.9 mg/dL 8.4 - 10. 4 mg/dL [facility] Chloride [Moles/Vol] 108 mmol/L High 98 - 10 7 mmol/L [facility] CO2 [Moles/Vol] 16 mmol/L Low 22 - 30 mmol/L [facility] Creatinine [Mass/Vol] 0.93 mg/dL 0.66 - 1.25 mg/dL [facility] GFR/1.73 sq M.predicted (S/P/Bld) [Vol rate/Area] - PINF [facility] Comment on above: Calculation based on the Chronic Kidney Disease Epidemiology Collaboration (CKD-EPI) equation refit without adjustment for race Glucose [Mass/Vol] 184 mg/dL High 70 - 100 mg/dL [facility] Interpretation and review of laboratory results Abnormal [facility] Potassium [Moles/Vol] 3.4 mmol/L Low 3.5 - 5.1 mmol/L [facility] Sodium [Moles/Vol] 135 mmol/L 135 - 145 mmol/L [facility] Urea nitrogen [Mass/Vol] 13 mg/dL 9 - 20 mg/dL [facility] CARECOORDon 07-06-2024 CARECOORD Normal [facility] CBC (HEMOGRAM)on 07-06-2024 Erythrocyte distribution width (RBC) [Ratio] 13.3 % Normal 11.5-15.0 [facility] Comment on above: Performed By: #### L [id number] ####Flame Channeler: ARA WRIGHT ([phone])[address] Hematocrit (Bld) [Volume fraction] 33.1 % Low 40.0-52.0 [facility] Comment on above: Performed By: #### L [id number] ####Flame Channeler: ARA WRIGHT ([phone])[facility] ([facility])[address] [place] [address] [place] Hemoglobin (Bld) [Mass/Vol] 11.1 g/dL Low 13.0-18.0 [facility] Comment on above: Performed By: #### L AB294 ####Flame Channeler: ARA WRIGHT ([phone])[facility] ([facility])[address] [place] [address] MCH (RBC) [Entitic mass] 30.2 pg Normal 26.0-34.0 [facility] Comment on above: Performed By: #### L [id number] ####Flame Channeler: ARA WRIGHT ([phone])[facility])[address] [place] [address] MCHC 33.5 % Normal 30.5-36.0 [facility] Comment on above: Performed By: #### L [id number] ####Flame Channeler: ARA WRIGHT ([phone])[facility])[address] [place] [address] MCV (RBC) [Entitic vol] 90.2 fL Normal 77.0-99.0 [facility] Comment on above: Performed By: #### L AB294 ####Flame Channeler: ARA WRIGHT ([phone])[facility])[address] [place] [address] Platelet mean volume (Bld) [Entitic vol] 9.2 fL Normal 9.0-12.7 [facility] Comment on above: Performed By: #### L AB294 ####Flame Channeler: ARA WRIGHT ([id number])[facility])[address] [place] [address] Platelets (Bld) [#/Vol] 192 10*3/uL Normal 140-440 [facility] Comment on above: Performed By: #### L [id number] ####Flame Channeler: ARA WRIGHT ([phone])[facility])[address] [place] [address] RBC (Bld) [#/Vol] 3.67 10*6/uL Low 4.40-5.90 [facility] Comment on above: Performed By: #### L [id number] ####Flame Channeler: ARA WRIGHT ([phone])[facility])[address] [place] [address] WBC (Bld) [#/Vol] 4.5 10*3/uL Normal 3.6-10.7 [facility] Comment on above: Performed By: #### L [id number] ####Flame Channeler: ARA WRIGHT ([id number])[facility] ([facility])[address] [place] [address] CBC panel Auto (Bld)on 07-06 Erythrocyte distribution width (RBC) [Ratio] 13.3 % 11.5 - 15.0 % [facility] Hematocrit (Bld) [Volume fraction] 33.1 % Low 40.0 - 52.0 % [facility] Hemoglobin (Bld) [Mass/Vol] 11.1 g/dL Low 13.0 - 18.0 g/dL [facility] Interpretation and review of laboratory results Abnormal [facility] MCH (RBC) [Entitic mass] 30.2 pg 26.0 - 34.0 pg [facility] MCHC (RBC) [Mass/Vol] 33.5 % 30.5 - 36.0 % [facility] MCV (RBC) [Entitic vol] 90.2 fL 77.0 - 99.0 fL [facility] Platelet mean volume (Bld) [Entitic vol] 9.2 fL 9.0 - 12.7 fL [facility] Platelets (Bld) [#/Vol] 192 10*3/uL 140 - 440 10*3/uL [facility] RBC (Bld) [#/Vol] 3.67 10*6/uL Low 4.40 - 5.9 0 10*6/uL [facility] WBC (Bld) [#/Vol] 4.5 10*3/uL 3.6 - 10.7 10*3/uL [facility] IDNon 07-06-2024 IDN Normal [facility] Laboratory - Chemistry and C hemistry - challengeon 07-06-2024 Magnesium [Mass/Vol] 1.4 mg/dL Low 1.6 - 2 .3 mg/dL [facility] MAGNESIUMon 07-06-2024 Magnesium [Mass/Vol] 1.4 mg/dL Low 1.6-2.3 [facility] Comment on above: Performed By: #### L AB103, LAB15 ####Flame Channeler: ARA WRIGHT ([phone])[facility] [place] [address] Magnesium [Mass/Vol]on 07-06 Interpretation and review of laboratory results Abnormal [facility] Progress Noteon 07-06-2024 Progress Note Normal [facility] Progress Note Normal [facility] Progress Note Normal [facility] Progress Note Normal [facility] BASIC METABOLIC PANELon 06-19 Anion gap [Moles/Vol] 8 mmol/L Normal 3-13 [facility] Comment on above: Performed By: #### L AB99, LAB15 ####Flame Channeler: ARA WRIGHT ([phone])[facility] [place] [address] Calcium [Mass/Vol] 8.6 mg/dL Normal 8.4-10.4 [facility] Comment on above: Performed By: #### L AB99, LAB15 ####Flame Channeler: ARA WRIGHT ([phone])[facility] [place] [address] [place] Chloride [Moles/Vol] 100 mmol/L Normal 98-107 [facility] Comment on above: Performed By: #### L AB99, LAB15 ####Flame Channeler: ARA WRIGHT ([phone])[facility] ([facility])[address] [place] [address] [place] CO2 [Moles/Vol] 18 mmol/L Low 22-30 [facility] Comment on above: Performed By: #### L AB99, LAB15 ####Flame Channeler: ARA WRIGHT ([phone])[facility] [place] [address] [place] Creatinine [Mass/Vol] 1.13 mg/dL Normal 0.66-1.25 [facility] Comment on above: Performed By: #### L AB99, LAB15 ####Flame Channeler: ARA WRIGHT ([phone])[facility])[address] [place] [address] [place] GLOMERULAR FILTRATION RATE ML/MIN/1.73 SQ M.PREDICTED 72.6 mL/min/1.73m*2 Normal >60.0 [facility] Comment on above: Result Comment: Calc ulation based on the Chronic Kidney Disease Epidemiology Collaboration (CKD-EPI) equation refit without adjustment for race Performed By: #### L AB99, LAB15 ####Flame Channeler: ARA WRIGHT ([id number])[facility] ([facility])[address] [place] [address] Glucose [Mass/Vol] 125 mg/dL High 70-100 [facility] Comment on above: Performed By: #### L AB99, LAB15 ####Flame Channeler: ARA WRIGHT ([phone])[facility] ([facility])[address] [place] [address] Potassium [Moles/Vol] 3.1 mmol/L Low 3.5-5.1 [facility] Comment on above: Performed By: #### L AB99, LAB15 ####Flame Channeler: ARA WRIGHT ([phone])[facility] ([facility])[address] [place] [address] Sodium [Moles/Vol] 127 mmol/L Low 135-145 [facility] Comment on above: Performed By: #### L AB99, LAB15 ####Flame Channeler: RAA WRIGHT ([phone])[facility])[address] [place] [address] Urea nitrogen [Mass/Vol] 17 mg/dL Normal 9-20 [facility] Comment on above: Performed By: #### L AB99, LAB15 ####Flame Channeler: ARA WRIGHT ([phone])[facility])[address] [place] [address] Basic metabolic 1998 panelOr dered By: Gold Diaz on 07-05-2024 Anion gap [Moles/Vol] 8 mmol/L 3 - 13 mmol/L [facility] Calcium [Mass/Vol] 8.6 mg/dL 8.4 - 10. 4 mg/dL [facility] Chloride [Moles/Vol] 100 mmol/L 98 - 10 7 mmol/L [facility] CO2 [Moles/Vol] 18 mmol/L Low 22 - 30 mmol/L [facility] Creatinine [Mass/Vol] 1.13 mg/dL 0.66 - 1.25 mg/dL [facility] GFR/1.73 sq M.predicted (S/P/Bld) [Vol rate/Area] 72.6 mL/min - PINF [facility] Comment on above: Calculation based on the Chronic Kidney Disease Epidemiology Collaboration (CKD-EPI) equation refit without adjustment for race Glucose [Mass/Vol] 125 mg/dL High 70 - 100 mg/dL [facility] Interpretation and review of laboratory results Abnormal [facility] Potassium [Moles/Vol] 3.1 mmol/L Low 3.5 - 5.1 mmol/L [facility] Sodium [Moles/Vol] 127 mmol/L Low 135 - 145 mmol/L [facility] Urea nitrogen [Mass/Vol] 17 mg/dL 9 - 20 mg/dL [facility] C. DIFFICILE BY PCR WITH REF BEATRICE TO EIAon 07-05-2024 C. DIFFICILE BY PCR WITH REFLEX TO EIA C. DIFFICILE TOXIN PCR Reference Not Detected Not Detected ORDER COMMENTS: C. difficile infection is unlikely to be present. Methodology: Real-time PCR Normal [facility] Comment on above: Performed By: #### L [id number], [id number] ####Flame Channeler: ARA WRIGHT ([phone])[address] C. difficile toxin genes SHANE +probe Ql (Stl)on 07-05-2024 C. difficile toxin B tcdB gene SHANE+probe Ql (Stl) Not detected Not Detected [facility] Interpretation and review of laboratory results Normal [facility] C. difficile infecti on is unlikely to be present. Methodology: Real-time PCR [facility] CALPROTECTIN STOOL (BKR QUES T)on 07-05-2024 [facility] CALPROTECTIN, STOOL 38 mcg/g Normal [facility] Comment on above: Result Comment: Refe rence Range: <50 Normal 50-120 Borderline >120 ElevatedCalprotectin in Crohn's disease and ulcerativecolitis can be five to several thousand timesabove the reference population (50 mcg/g or less).Levels are usually 50 mcg/g or less in healthypatients and with irritable bowel syndrome. Repeattesting in 4-6 weeks is suggested for borderlinevalues.Test performed by [facility] [id number] [place] [address] [employer] Director: Rochelle Rodriguez MD,PHD,MBATest Reported by [facility],EDMdesigner [facility],[address] [place], [place] [address]Ezfzhtjhaider Soto M.D., Ph.D., Director of [phone], CLIA [id number] Performed By: #### L [id number] ####[employer] (AMDBEAKER)[id number] [place], [place] [facility] CBC W Auto Differential pane l (Bld)on 07-05-2024 Basophils (Bld) [#/Vol] 0.1 10*3/uL 0.0 - 0.2 10*3/uL [facility] Basophils/100 WBC (Bld) 0.7 % 0.0 - 2.0 % [facility] Eosinophils (Bld) [#/Vol] 0.1 10*3/uL 0.0 - 0.5 10*3/uL [facility] Eosinophils/100 WBC (Bld) 2.1 % 0.0 - 6.0 % [facility] Erythrocyte distribution width (RBC) [Ratio] 12.8 % 11.5 - 15.0 % [facility] Hematocrit (Bld) [Volume fraction] 31.6 % Low 40.0 - 52.0 % [facility] Hemoglobin (Bld) [Mass/Vol] 10.9 g/dL Low 13.0 - 18.0 g/dL [facility] Immature granulocytes (Bld) [#/Vol] 0.0 10*3/uL NINF - 0.1 10*3/uL [facility] Immature granulocytes/100 WBC (Bld) 0.4 % 0.0 - 2.0 % [facility] Interpretation and review of laboratory results Abnormal [facility] Lymphocytes (Bld) [#/Vol] 1.6 10*3/uL 1.0 - 4.3 10*3/uL [facility] Lymphocytes/100 WBC (Bld) 24.0 % 15.0 - 45.0 % [facility] MCH (RBC) [Entitic mass] 29.8 pg 26.0 - 34.0 pg [facility] MCHC (RBC) [Mass/Vol] 34.5 % 30.5 - 36.0 % [facility] MCV (RBC) [Entitic vol] 86.3 fL 77.0 - 99.0 fL [facility] Monocytes (Bld) [#/Vol] 0.6 10*3/uL 0.0 - 0.9 10*3/uL [facility] Monocytes/100 WBC (Bld) 9.1 % 5.0 - 13.0 % [facility] Neutrophils (Bld) [#/Vol] 4.3 10*3/uL 1.8 - 7.5 10*3/uL [facility] Neutrophils/100 WBC (Bld) 63.7 % 38.0 - 82.0 % [facility] Nucleated RBC/100 WBC (Bld) [Ratio] 0.0 % [facility] Platelet mean volume (Bld) [Entitic vol] 9.1 fL 9.0 - 12.7 fL [facility] Platelets (Bld) [#/Vol] 187 10*3/uL 140 - 440 10*3/uL [facility] RBC (Bld) [#/Vol] 3.66 10*6/uL Low 4.40 - 5.9 0 10*6/uL [facility] WBC (Bld) [#/Vol] 6.7 10*3/uL 3.6 - 10.7 10*3/uL [facility] CBC WITH AUTO DIFFERENTIALon 07-05-2024 Basophils (Bld) [#/Vol] 0.1 10*3/uL Normal 0.0-0.2 [facility] Comment on above: Performed By: #### L [id number] ####Flame Channeler: ARA WRIGHT ([id number])[address] Basophils/100 WBC (Bld) 0.7 % Normal 0.0-2.0 [facility] Comment on above: Performed By: #### L [id number] ####Flame Channeler: ARA WRIGHT ([phone])[facility] ([facility])[address] [place] [address] Eosinophils (Bld) [#/Vol] 0.1 10*3/uL Normal 0.0-0.5 [facility] Comment on above: Performed By: #### L [id number] ####Flame Channeler: ARA WRIGHT ([phone])[facility])[address] [place] [address] Eosinophils/100 WBC (Bld) 2.1 % Normal 0.0-6.0 [facility] Comment on above: Performed By: #### L [id number] ####Flame Channeler: ARA WRIGHT ([phone])[address] Erythrocyte distribution width (RBC) [Ratio] 12.8 % Normal 11.5-15.0 [facility] Comment on above: Performed By: #### L [id number] ####Flame Channeler: ARA WRIGHT ([id number])[address] Hematocrit (Bld) [Volume fraction] 31.6 % Low 40.0-52.0 [facility] Comment on above: Performed By: #### L [id number] ####Flame Channeler: ARA WRIGHT ([id number])[address] Hemoglobin (Bld) [Mass/Vol] 10.9 g/dL Low 13.0-18.0 [facility] Comment on above: Performed By: #### L [id number] ####Flame Channeler: ARA WRIGHT ([id number])[address] IMMATURE GRANS % 0.4 % Normal 0.0-2.0 [facility] Comment on above: Performed By: #### L [id number] ####Flame Channeler: ARA WRIGHT ([phone])[address] IMMATURE GRANS ABSOLUTE 0.0 10*3/uL Normal <0.1 [facility] Comment on above: Performed By: #### L [id number] ####Flame Channeler: ARA WRIGHT ([phone])[facility])[address] [place] [address] Lymphocytes (Bld) [#/Vol] 1.6 10*3/uL Normal 1.0-4.3 [facility] Comment on above: Performed By: #### L [id number] ####Flame Channeler: ARA WRIGHT ([phone])[facility])[address] [place] [address] Lymphocytes/100 WBC (Bld) 24.0 % Normal 15.0-45.0 [facility] Comment on above: Performed By: #### L [id number] ####Flame Channeler: ARA WRIGHT ([id number])[facility])[address] [place] [address] MCH (RBC) [Entitic mass] 29.8 pg Normal 26.0-34.0 [facility] Comment on above: Performed By: #### L [id number] ####Flame Channeler: ARA WRIGHT ([id number])[facility])[address] [place] [address] MCHC 34.5 % Normal 30.5-36.0 [facility] Comment on above: Performed By: #### L [id number] ####Flame Channeler: ARA WRIGHT ([phone])[facility])[address] [place] [address] MCV (RBC) [Entitic vol] 86.3 fL Normal 77.0-99.0 [facility] Comment on above: Performed By: #### L [id number] ####Flame Channeler: ARA WRIGHT ([phone])[facility])[address] [place] [address] Monocytes (Bld) [#/Vol] 0.6 10*3/uL Normal 0.0-0.9 [facility] Comment on above: Performed By: #### L [id number] ####Flame Channeler: ARA WRIGHT ([phone])[facility] [place] [address] Monocytes/100 WBC (Bld) 9.1 % Normal 5.0-13.0 [facility] Comment on above: Performed By: #### L [id number] ####Flame Channeler: ARA WRIGHT ([phone])[facility])[address] [place] [address] NEUTROPHILS ABSOLUTE 4.3 10*3/uL Normal 1.8-7.5 [facility] Comment on above: Performed By: #### L [id number] ####Flame Channeler: ARA WRIGHT ([phone])[facility])[address] [place] [address] Neutrophils/100 WBC (Bld) 63.7 % Normal 38.0-82.0 [facility] Comment on above: Performed By: #### L [id number] ####Flame Channeler: ARA WRIGHT ([phone])[facility] ([facility])[address] [place] [address] NRBC 0.0 /100 WBCs Normal 0.0-2.0 [facility] Comment on above: Performed By: #### L [id number] ####Flame Channeler: ARA WRIGHT ([id number])[facility] ([facility])[address] [place] [address] Platelet mean volume (Bld) [Entitic vol] 9.1 fL Normal 9.0-12.7 [facility] Comment on above: Performed By: #### L [id number] ####Flame Channeler: ARA WRIGHT ([phone])[facility] ([facility])[address] [place] [address] Platelets (Bld) [#/Vol] 187 10*3/uL Normal 140-440 [facility] Comment on above: Performed By: #### L [id number] ####Flame Channeler: ARA WRIGHT ([phone])[facility] ([facility])[address] [place] [address] RBC (Bld) [#/Vol] 3.66 10*6/uL Low 4.40-5.90 [facility] Comment on above: Performed By: #### L [id number] ####Flame Channeler: ARA WRIGHT ([id number])[facility] ([facility])[address] [place] [address] WBC (Bld) [#/Vol] 6.7 10*3/uL Normal 3.6-10.7 [facility] Comment on above: Performed By: #### L [id number] ####Flame Channeler: ARA ROBERTSONTim ([phone])[facility] [place] [address] CT ABDOMEN PELVIS W CONTRAST on 07-05-2024 CT ABDOMEN PELVIS W CONTRAST Normal [facility] CT Abdomen and Pelvis W cont rast Joaquin 07-05-2024 1. No acute process. Report Dictated on Electronically Signed By: Lloyd Onofre MD Electronically Signed Date/Time: 07/05/2024 1:55 PM T [facility] [employer] [facility]: [facility] NI : 1960 [id number] Exam Date/Time: 07/05/2024 13:10 Procedure: CT ABDOMEN PELVIS W CONTRAST Ordering Provider: PIERCE MARGIT Reason For Exam: abdominal pain, diarrhea EXAMINATION: CT ABDOMEN PELVIS W CONTRAST CLINICAL HISTORY: abdominal pain, diarrhea COMPARISON: None TECHNIQUE: Contiguous axial images were obtained through the abdomen and pelvis from the level of the diaphragmatic domes through the pubic symphysis following bolus administration of intravenous contrast. Dose reduction was employed with automated exposure control. FINDINGS: Included images of the lower thorax: No focal lung consolidation or pleural effusion. Hepatobiliary: Unremarkable liver without biliary dilation evident. The gallbladder is surgically absent. Pancreas: Unremarkable Spleen: Unremarkable Adrenal Glands: Unremarkable Kidneys and ureters: No calculi or hydroureteronephrosis. Abdominal vasculature: Atherosclerotic wall calcifications are present without aneurysm. GI tract: No evidence of obstruction. The appendix is normal. Peritoneum and retroperitoneum: No free fluid or free air is noted. Lymph Nodes: No abdominal lymphadenopathy is evident. Pelvis: Unremarkable Visualized musculoskeletal structures: No acute fracture or destructive osseous lesion is identified. Mild retrolisthesis of L2-3, L2-L5 laminectomies. [facility] Lloyd Onofre M D - 07/05/2024 Patient Name: WOODY NI : 1960 Exam Date/Time: 07/05/2024 13:10 Procedure: CT ABDOMEN PELVIS W CONTRAST Ordering Provider: PIERCE MARGIT Reason For Exam: abdominal pain, diarrhea EXAMINATION: CT ABDOMEN PELVIS W CONTRAST CLINICAL HISTORY: abdominal pain, diarrhea COMPARISON: None TECHNIQUE: Contiguous axial images were obtained through the abdomen and pelvis from the level of the diaphragmatic domes through the pubic symphysis following bolus administration of intravenous contrast. Dose reduction was employed with automated exposure control. FINDINGS: Included images of the lower thorax: No focal lung consolidation or pleural effusion. Hepatobiliary: Unremarkable liver without biliary dilation evident. The gallbladder is surgically absent. Pancreas: Unremarkable Spleen: Unremarkable Adrenal Glands: Unremarkable Kidneys and ureters: No calculi or hydroureteronephrosis. Abdominal vasculature: Atherosclerotic wall calcifications are present without aneurysm. GI tract: No evidence of obstruction. The appendix is normal. Peritoneum and retroperitoneum: No free fluid or free air is noted. Lymph Nodes: No abdominal lymphadenopathy is evident. Pelvis: Unremarkable Visualized musculoskeletal structures: No acute fracture or destructive osseous lesion is identified. Mild retrolisthesis of L2-3, L2-L5 laminectomies. IMPRESSION: 1. No acute process. Report Dictated on Electronically Signed By: Lloyd Onofre MD Electronically Signed Date/Time: 07/05/2024 1:55 PM EDT [facility] Radiology Study observation (narrative) [facility] CT Abdomen and Pelvis W cont rast IVOrdered By: Lloyd Onofre on 07-05-2024 [facility] [employer] Work Phone: Consulton 07-05-2024 Consult Normal [facility] Consult Normal [facility] Consult Normal [facility] Consult Normal [facility] Consult Normal [facility] FECAL FAT, QUALITATIVEon FECAL FAT - NEUTRAL Normal Normal Normal [facility] Comment on above: Performed By: #### L [id number] ####[facility] ([facility])[address] [place] [address] [place] FECAL FAT - SPLIT Normal Normal Normal [facility] Comment on above: Result Comment: INTE RPRETIVE INFORMATION: Fecal Fat QualitativeNeutral fats include the monoglycerides, diglycerides, andtriglycerides while split fats are the free fatty acidsthat are liberated from them. Impaired synthesis orsecretion of pancreatic enzymes or bile may cause anincrease in neutral fats while an increase in split fatssuggests impaired absorption of nutrients.Performed By: about.me[address] [place], [place] [address]Aoyntduqep Director: Ana Heredia MD, PhDCLIA Number: [id number] Performed By: #### L [id number] ####[facility] ([facility])[address] [place] [address] [place] GASTROINTESTINAL PCR PANELon 07-05-2024 GASTROINTESTINAL PCR PANEL Normal [facility] Comment on above: Performed By: #### L [id number], [id number] ####Flame Channeler: ARA WRIGHT ([phone])[facility] ([address] Gastrointestinal pathogens p mac SHANE+probe (Stl)Ordered By: Jose Bell on 07-05-2024 Adenovirus F 40/41 Not detected Not Detected [facility] Astrovirus Not detected Not Detected [facility] Campylobacter Not detected Not Detected [facility] Cryptosporidium Not detected Not Detected [facility] Cyclospora cayetanensis Not detected Not Detected [facility] Entamoeba histolytica Not detected Not Detected [facility] Enterotoxigenic E coli (ETEC) Not detected Not Detected [facility] Giardia lamblia Not detected Not Detected [facility] Interpretation and review of laboratory results Normal [facility] Norovirus GI/GII Not detected Not Detected [facility] Plesiomonas shigelloides Not detected Not Detected [facility] Rotavirus A Not detected Not Detected [facility] Salmonella Not detected Not Detected [facility] Sapovirus Not detected Not Detected [facility] Shiga toxin-producing E coli (STEC) Not detected Not Detected [facility] Shigella/Enteroinvasiv e E coli (EIEC) Not detected Not Detected [facility] Vibrio cholerae Not detected Not Detected [facility] Vibrio species Not detected Not Detected [facility] Yersinia enterocolitica Not detected Not Detected [facility] A positive Norovirus result on the Film Array GI panel should be interpreted in the context of the patient's history and clinical picture. If results are not consistent, result should be confirmed with a Norovirus specific assay. Methodology: Multiplex PCR [facility] IDNon 07-05-2024 IDN Normal [facility] IDN Normal [facility] LACTIC ACID WITH REFLEXon Lactate [Moles/Vol] 0.7 mmol/L Normal 0.7-2.0 [facility] Comment on above: Performed By: #### L [id number] ####Flame Channeler: ARA WRIGHT ([phone])[facility] ([facility])[address] [place] [address] LIPASEon 07-05-2024 Lipase [Catalytic activity/Vol] 134 U/L Normal 23-300 [facility] Comment on above: Performed By: #### L AB99, LAB15 ####Flame Channeler: ARA WRIGHT ([id number])[facility] ([address] Laboratory - Chemistry and C hemistry - challengeon 07-05-2024 Lipase [Catalytic activity/Vol] 134 U/L 23 - 300 U/L [facility] Lactate [Moles/Vol] 0.7 mmol/L 0.7 - 2. 0 mmol/L [facility] Lipase [Catalytic activity/V ol]on 07-05-2024 Interpretation and review of laboratory results Normal [facility] No Panel Informationon 07-05 Interpretation and review of laboratory results Normal [facility] Progress Noteon 07-05-2024 Progress Note Normal [facility] Progress Note Normal [facility] Progress Note Normal [facility] Progress Note Normal [facility] US ABDOMEN COMPLETEon 2023 US ABDOMEN COMPLETE Normal [facility] US Abdomenon 07-05-2024 1. Status post cholecystectomy. No biliary ductal dilatation. 2. Mild hepatocellular disease. 3. Pancreas is obscured by overlying bowel gas and not well visualized or evaluated. Report Dictated on Electronically Signed By: Juan Jose Abreu MD Electronically Signed Date/Time: 07/05/2024 8:51 AM EDT [facility] Patient Name: WOODY NI : 1960 Exam Date/Time: 07/05/2024 08:35 Procedure: US ABDOMEN COMPLETE Ordering Provider: ALMANZA FREDRICK Reason For Exam: ALCOHOLIC CIRRHOSIS ULTRASOUND ABDOMEN COMPLETE CLINICAL INDICATION: Abdominal pain cirrhosis TECHNIQUE: Grayscale sonographic images were obtained of the abdomen. Color Doppler was utilized. COMPARISON: Correlation is made to several prior studies including CT abdomen pelvis 12/22/2022 FINDINGS: Limitations: Overlying bowel gas and rib shadowing limits evaluation to some extent. Liver: Normal in size. Hepatic parenchymal echotexture is heterogeneous and coarsened. No discrete liver lesion. Gallbladder/biliary: Status post cholecystectomy. As per the neurology technologist, no sonographic Ortiz sign was present. No sonographic evidence of intrahepatic biliary ductal dilatation. Common bile duct is normal in caliber measuring six mm. Pancreas: Largely obscured by bowel gas and not well visualized or evaluated. Right kidney: 11.0 x 4.2 x 5.8 cm. Cortical thickness and echotexture appear within normal limits. No obstructive uropathy or nephrolithiasis. Punctate nonobstructing calculi better seen on prior CT Left kidney: 10.0 x 4.9 x 5.8 cm. Cortical thickness and echotexture appear within normal limits. No obstructive uropathy or nephrolithiasis. Spleen: Homogeneous in appearance. Measures 11.4 x 4.6 x 6.1 cm. Aorta and Inferior vena cava: Visualized portions appear within normal limits Ascites/additional findings: No significant ascites or other additional abnormality [facility] Lulu Abreu MD - 07/05/2024 Patient Name: WOODY NI : 1960 Exam Date/Time: 07/05/2024 08:35 Procedure: US ABDOMEN COMPLETE Ordering Provider: ALMANZA FREDRICK Reason For Exam: ALCOHOLIC CIRRHOSIS ULTRASOUND ABDOMEN COMPLETE CLINICAL INDICATION: Abdominal pain cirrhosis TECHNIQUE: Grayscale sonographic images were obtained of the abdomen. Color Doppler was utilized. COMPARISON: Correlation is made to several prior studies including CT abdomen pelvis 12/22/2022 FINDINGS: Limitations: Overlying bowel gas and rib shadowing limits evaluation to some extent. Liver: Normal in size. Hepatic parenchymal echotexture is heterogeneous and coarsened. No discrete liver lesion. Gallbladder/biliary: Status post cholecystectomy. As per the neurology technologist, no sonographic Ortiz sign was present. No sonographic evidence of intrahepatic biliary ductal dilatation. Common bile duct is normal in caliber measuring six mm. Pancreas: Largely obscured by bowel gas and not well visualized or evaluated. Right kidney: 11.0 x 4.2 x 5.8 cm. Cortical thickness and echotexture appear within normal limits. No obstructive uropathy or nephrolithiasis. Punctate nonobstructing calculi better seen on prior CT Left kidney: 10.0 x 4.9 x 5.8 cm. Cortical thickness and echotexture appear within normal limits. No obstructive uropathy or nephrolithiasis. Spleen: Homogeneous in appearance. Measures 11.4 x 4.6 x 6.1 cm. Aorta and Inferior vena cava: Visualized portions appear within normal limits Ascites/additional findings: No significant ascites or other additional abnormality IMPRESSION: 1. Status post cholecystectomy. No biliary ductal dilatation. 2. Mild hepatocellular disease. 3. Pancreas is obscured by overlying bowel gas and not well visualized or evaluated. Report Dictated on Electronically Signed By: Juan Jose Abreu MD Electronically Signed Date/Time: 07/05/2024 8:51 AM EDT [facility] Radiology Study observation (narrative) [facility] US AbdomenOrdered By: Lisandro Abreu on 07-05-2024 [facility] [employer] Work Phone: AMMONIAon 07-04-2024 Ammonia (P) [Moles/Vol] 17 umol/L Normal 9-30 [facility] Comment on above: Performed By: #### L [id number] ####Flame Channeler: TRESSA SANTIZO ([phone])[facility] ([facility])[address] [place] [address] BETA HYDROXYBUTYRATEon 07-04 BETA HYDROXYBUTYRATE 20.30 mg/dL High 0.20-2.81 [facility] Comment on above: Performed By: #### L [id number], LAB99, EIR772, LAB17, DKI087, LAB46 ####Flame Channeler: ARA WRIGHT ([phone])[facility] ([facility])[address] BLOOD GAS, VENOUS (SWR AND S HC)on 07-04-2024 BASE EXCESS (MMOL/L) IN VENOUS BLOOD -8.0 mmol/L Low -3.0-3.0 [facility] Comment on above: Performed By: #### L [id number] ####Flame Channeler: ARA WRIGHT ([phone])[facility] ([facility])[address] [place] [address] CARBON DIOXIDE (MM HG) IN VENOUS BLOOD 32 mm(Hg) Low 40-55 [facility] Comment on above: Performed By: #### L [id number] ####Flame Channeler: ARA WRIGHT ([phone])[facility] ([facility])[address] [place] [address] [place] OXYGEN (MM HG) IN VENOUS BLOOD 62 mm(Hg) Normal [facility] Comment on above: Performed By: #### L [id number] ####Flame Channeler: ARA WRIGHT ([phone])[facility] ([facility])[address] [place] [address] [place] OXYGEN SATURATION (%) IN VENOUS BLOOD 90.0 % High 60.0-80.0 [facility] Comment on above: Performed By: #### L [id number] ####Flame Channeler: ARA WRIGHT ([id number])[facility] ([facility])[address] [place] [address] BLOOD GAS, VENOUS (SWR AND S HC)Ordered By: Bhupinder Motta on 07-04-2024 CO2 [Moles/Vol] 18.0 mmol/L Low 24.0-28.0 [facility] Comment on above: Performed By: #### L [id number] ####Flame Channeler: ARA WRIGHT ([phone])[facility] ([facility])[address] [place] [address] HCO3 (Bld) [Moles/Vol] 17.5 mmol/L Low 23.0-27.0 [facility] Comment on above: Performed By: #### L [id number] ####Flame Channeler: ARA WRIGHT ([phone])[facility] ([facility])[address] [place] [address] pH (Bld) 7.343 [pH] Normal 7.310-7.410 [facility] Comment on above: Performed By: #### L [id number] ####Flame Channeler: ARA WRIGHT ([id number])[facility] ([facility])[address] [place] [address] Source Of Oxygen Room Air Normal [facility] Comment on above: Performed By: #### L [id number] ####Flame Channeler: ARA WRIGHT ([phone])[facility] ([facility])[address] [place] [address] CBC W Auto Differential pane l (Bld)Ordered By: Diana Núñez on 07-04-2024 Basophils (Bld) [#/Vol] 0.1 10*3/uL 0.0 - 0.2 10*3/uL [facility] Basophils/100 WBC (Bld) 0.7 % 0.0 - 2.0 % [facility] Eosinophils (Bld) [#/Vol] 0.1 10*3/uL 0.0 - 0.5 10*3/uL [facility] Eosinophils/100 WBC (Bld) 1.5 % 0.0 - 6.0 % [facility] Erythrocyte distribution width (RBC) [Ratio] 12.8 % 11.5 - 15.0 % [facility] Hematocrit (Bld) [Volume fraction] 32.5 % Low 40.0 - 52.0 % [facility] Hemoglobin (Bld) [Mass/Vol] 11.7 g/dL Low 13.0 - 18.0 g/dL [facility] Immature granulocytes (Bld) [#/Vol] 0.0 10*3/uL NINF - 0.1 10*3/uL [facility] Immature granulocytes/100 WBC (Bld) 0.3 % 0.0 - 2.0 % [facility] Interpretation and review of laboratory results Abnormal [facility] Lymphocytes (Bld) [#/Vol] 2.5 10*3/uL 1.0 - 4.3 10*3/uL [facility] Lymphocytes/100 WBC (Bld) 26.3 % 15.0 - 45.0 % [facility] MCH (RBC) [Entitic mass] 30.5 pg 26.0 - 34.0 pg [facility] MCHC (RBC) [Mass/Vol] 36.0 % 30.5 - 36.0 % [facility] MCV (RBC) [Entitic vol] 84.6 fL 77.0 - 99.0 fL [facility] Monocytes (Bld) [#/Vol] 0.7 10*3/uL 0.0 - 0.9 10*3/uL [facility] Monocytes/100 WBC (Bld) 7.5 % 5.0 - 13.0 % [facility] Neutrophils (Bld) [#/Vol] 6.1 10*3/uL 1.8 - 7.5 10*3/uL [facility] Neutrophils/100 WBC (Bld) 63.7 % 38.0 - 82.0 % [facility] Nucleated RBC/100 WBC (Bld) [Ratio] 0.0 % [facility] Platelet mean volume (Bld) [Entitic vol] 8.9 fL Low 9.0 - 12.7 fL [facility] Comment on above: MPV is a calculated measurement using platelet volume ratio Platelets (Bld) [#/Vol] 227 10*3/uL 140 - 440 10*3/uL [facility] RBC (Bld) [#/Vol] 3.84 10*6/uL Low 4.40 - 5.9 0 10*6/uL [facility] WBC (Bld) [#/Vol] 9.6 10*3/uL 3.6 - 10.7 10*3/uL [facility] CBC WITH AUTO DIFFERENTIALon 07-04-2024 Basophils (Bld) [#/Vol] 0.1 10*3/uL Normal 0.0-0.2 [facility] Comment on above: Performed By: #### L [id number] ####Flame Channeler: ARA WRIGHT ([id number])[facility] ([facility])[address] [place] [address] [place] Basophils/100 WBC (Bld) 0.7 % Normal 0.0-2.0 [facility] Comment on above: Performed By: #### L [id number] ####Flame Channeler: ARA WRIGHT ([phone])[facility] ([facility])[address] [place] [address] Eosinophils (Bld) [#/Vol] 0.1 10*3/uL Normal 0.0-0.5 [facility] Comment on above: Performed By: #### L [id number] ####Flame Channeler: ARA WRIGHT ([phone])[facility] ([facility])[address] [place] [address] Eosinophils/100 WBC (Bld) 1.5 % Normal 0.0-6.0 [facility] Comment on above: Performed By: #### L [id number] ####Flame Channeler: ARA WRIGHT ([phone])[facility] ([facility])[address] [place] [address] Erythrocyte distribution width (RBC) [Ratio] 12.8 % Normal 11.5-15.0 [facility] Comment on above: Performed By: #### L [id number] ####Flame Channeler: ARA WRIGHT ([phone])[facility] ([facility])[address] [place] [address] Hematocrit (Bld) [Volume fraction] 32.5 % Low 40.0-52.0 [facility] Comment on above: Performed By: #### L [id number] ####Flame Channeler: ARA WRIGHT ([phone])[facility] ([facility])[address] [place] [address] Hemoglobin (Bld) [Mass/Vol] 11.7 g/dL Low 13.0-18.0 [facility] Comment on above: Performed By: #### L [id number] ####Flame Channeler: ARA WRIGHT ([id number])[facility] ([facility])[address] [place] [address] IMMATURE GRANS % 0.3 % Normal 0.0-2.0 [facility] Comment on above: Performed By: #### L [id number] ####Flame Channeler: ARA WRIGHT ([phone])[facility] ([facility])[address] [place] [address] IMMATURE GRANS ABSOLUTE 0.0 10*3/uL Normal <0.1 [facility] Comment on above: Performed By: #### L [id number] ####Flame Channeler: ARA WRIGHT ([phone])[facility] ([facility])[address] [place] [address] Lymphocytes (Bld) [#/Vol] 2.5 10*3/uL Normal 1.0-4.3 [facility] Comment on above: Performed By: #### L [id number] ####Flame Channeler: ARA WRIGHT ([id number])[facility] ([facility])[address] [place] [address] Lymphocytes/100 WBC (Bld) 26.3 % Normal 15.0-45.0 [facility] Comment on above: Performed By: #### L [id number] ####Flame Channeler: ARA WRIGHT ([id number])[facility] ([facility])[address] [place] [address] MCH (RBC) [Entitic mass] 30.5 pg Normal 26.0-34.0 [facility] Comment on above: Performed By: #### L [id number] ####Flame Channeler: ARA WRIGHT ([phone])[facility] ([facility])[address] [place] [address] MCHC 36.0 % Normal 30.5-36.0 [facility] Comment on above: Performed By: #### L [id number] ####Flame Channeler: ARA WRIGHT ([phone])[facility] ([facility])[address] [place] [address] MCV (RBC) [Entitic vol] 84.6 fL Normal 77.0-99.0 [facility] Comment on above: Performed By: #### L [id number] ####Flame Channeler: ARA WRIGHT ([phone])[facility] ([facility])[address] [place] [address] Monocytes (Bld) [#/Vol] 0.7 10*3/uL Normal 0.0-0.9 [facility] Comment on above: Performed By: #### L [id number] ####Flame Channeler: ARA WRIGHT ([id number])[facility] ([facility])[address] [place] [address] [place] Monocytes/100 WBC (Bld) 7.5 % Normal 5.0-13.0 [facility] Comment on above: Performed By: #### L [id number] ####Flame Channeler: ARA WRIGHT ([phone])[facility] ([facility])[address] [place] [address] [place] NEUTROPHILS ABSOLUTE 6.1 10*3/uL Normal 1.8-7.5 [facility] Comment on above: Performed By: #### L [id number] ####Flame Channeler: ARA WRIGHT ([phone])[facility] ([facility])[address] [place] [address] Neutrophils/100 WBC (Bld) 63.7 % Normal 38.0-82.0 [facility] Comment on above: Performed By: #### L [id number] ####Flame Channeler: ARA WRIGHT ([phone])[facility] ([facility])[address] [place] [address] NRBC 0.0 /100 WBCs Normal 0.0-2.0 [facility] Comment on above: Performed By: #### L [id number] ####Flame Channeler: ARA WRIGHT ([phone])[facility] ([facility])[address] [place] [address] Platelet mean volume (Bld) [Entitic vol] 8.9 fL Low 9.0-12.7 [facility] Comment on above: Result Comment: MPV is a calculated measurement using platelet volume ratio Performed By: #### L [id number] ####Flame Channeler: ARA WRIGHT ([id number])[facility] ([facility])[address] [place] [address] [place] Platelets (Bld) [#/Vol] 227 10*3/uL Normal 140-440 [facility] Comment on above: Performed By: #### L [id number] ####Flame Channeler: ARA WRIGHT ([phone])[facility] ([facility])[address] [place] [address] RBC (Bld) [#/Vol] 3.84 10*6/uL Low 4.40-5.90 [facility] Comment on above: Performed By: #### L [id number] ####Flame Channeler: ARA WRIGHT ([phone])[facility] ([facility])[address] [place] [address] [place] WBC (Bld) [#/Vol] 9.6 10*3/uL Normal 3.6-10.7 [facility] Comment on above: Performed By: #### L [id number] ####Flame Channeler: ARA WRIGHT ([phone])[facility] ([facility])[address] COMPREHENSIVE METABOLIC PANE Peter 07-04-2024 Albumin [Mass/Vol] 4.1 g/dL Normal 3.5-5.0 [facility] Comment on above: Performed By: #### L [id number], LAB99, JZB585, LAB17, OUT532, LAB46 ####Flame Channeler: ARA WRIGHT ([id number])[facility] ([facility])[address] ALP [Catalytic activity/Vol] 68 U/L Normal 38-126 [facility] Comment on above: Performed By: #### L [id number], LAB99, SIF347, LAB17, TSA641, LAB46 ####Flame Channeler: ARA WRIGHT ([phone])[facility] ([facility])[address] ALT [Catalytic activity/Vol] 17 U/L Normal 0-49 [facility] Comment on above: Performed By: #### L [id number], LAB99, YLP289, LAB17, NSS161, LAB46 ####Flame Channeler: ARA WRIGHT ([phone])[facility] ([facility])[address] [place] [address] Anion gap [Moles/Vol] 20 mmol/L High 3-13 [facility] Comment on above: Performed By: #### L [id number], LAB99, WTN650, LAB17, OIY534, LAB46 ####Flame Channeler: ARA WRIGHT ([id number])[facility] ([facility])[address] [place] [address] [place] AST [Catalytic activity/Vol] 38 U/L Normal 15-46 [facility] Comment on above: Performed By: #### L [id number], LAB99, RJZ160, LAB17, EJF594, LAB46 ####Flame Channeler: ARA WRIGHT ([phone])[facility] ([facility])[address] [place], [place] [address] [place] Bilirubin [Mass/Vol] 0.8 mg/dL Normal 0.2-1.3 [facility] Comment on above: Performed By: #### L [id number], LAB99, VMZ728, LAB17, MME960, LAB46 ####Flame Channeler: ARA WRIGHT ([phone])[facility] ([facility])[address] Calcium [Mass/Vol] 8.8 mg/dL Normal 8.4-10.4 [facility] Comment on above: Performed By: #### L [id number], LAB99, KAY377, LAB17, HYU823, LAB46 ####Flame Channeler: ARA WRIGHT ([phone])[facility] ([facility])[address] [place] [address] [place] Chloride [Moles/Vol] 90 mmol/L Low 98-107 [facility] Comment on above: Performed By: #### L [id number], LAB99, AFQ712, LAB17, WJD041, LAB46 ####Flame Channeler: AAR WRIGHT ([phone])[facility] ([facility])[address] [place] [address] [place] CO2 [Moles/Vol] 14 mmol/L Low 22-30 [facility] Comment on above: Performed By: #### L [id number], LAB99, NZU868, LAB17, LEE655, LAB46 ####Flame Channeler: ARA WRIGHT ([phone])[facility] ([facility])[address] Creatinine [Mass/Vol] 1.33 mg/dL High 0.66-1.25 [facility] Comment on above: Performed By: #### L [id number], LAB99, ZLJ695, LAB17, RYB017, LAB46 ####Flame Channeler: ARA WRIGHT ([phone])[facility]ALTH[facility] DUNCAN RITTMAN (SWRLAB)[address] GLOMERULAR FILTRATION RATE ML/MIN/1.73 SQ M.PREDICTED 59.7 mL/min/1.73m*2 Low >60.0 [facility] Comment on above: Result Comment: Calc ulation based on the Chronic Kidney Disease Epidemiology Collaboration (CKD-EPI) equation refit without adjustment for race Performed By: #### L [id number], LAB99, MRH093, LAB17, YKH131, LAB46 ####Flame Channeler: ARA WRIGHT ([phone])[facility] HEALTHOctavia DUNCAN [place]TM[facility] (SWRLAB)[address] Glucose [Mass/Vol] 86 mg/dL Normal 70-100 [facility] Comment on above: Performed By: #### L [id number], LAB99, MZA566, LAB17, RBK067, LAB46 ####Flame Channeler: ARA WRIGHT ([phone])[facility] HEALTHOctavia DUNCAN RITTMAN (SWRLAB)[address] [place] [address] [place] Potassium [Moles/Vol] 2.7 mmol/L Low 3.5-5.1 [facility] Comment on above: Performed By: #### L [id number], LAB99, FFP439, LAB17, YBY110, LAB46 ####Flame Channeler: ARA WRIGHT ([phone])[facility] HEALTHOctavia DUNCAN RITTMAN (SWRLAB)[address] [place] [address] Protein [Mass/Vol] 6.6 g/dL Normal 6.3-8.2 [facility] Comment on above: Performed By: #### L [id number], LAB99, GWD729, LAB17, OEX120, LAB46 ####Flame Channeler: ARA WRIGHT ([phone])[facility]ALTHOct[facility] DUNCAN R[place]TMAN (SWRLAB)[address] [place] [address] [place] Sodium [Moles/Vol] 124 mmol/L Low 135-145 [facility] Comment on above: Performed By: #### L [id number], LAB99, ULD553, LAB17, KJM046, LAB46 ####Flame Channeler: ARA WRIGHT ([phone])[facility] (SW[facility])[address] [place] [address] Urea nitrogen [Mass/Vol] 18 mg/dL Normal 9-20 [facility] Comment on above: Performed By: #### L [id number], LAB99, RLM815, LAB17, GGZ583, LAB46 ####Flame Channeler: AAR WRIGHT ([phone])[facility] (SWRLAB)[address] [place] [address] CT HEAD WO IV CONTRASTon CT HEAD WO IV CONTRAST Normal [facility] CT Head WO contraston 2023 No acute intracrania l abnormality. 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 Report Dictated on Electronically Signed By: Barbara Henriquez MD Electronically Signed Date/Time: 07/04/2024 6:[address] [facility] Patient Name: WOODY NI : 1960 [id number] Exam Date/Time: 07/04/2024 18:06 Procedure: CT HEAD WO IV CONTRAST Ordering Provider: BELL SCOTT Reason For Exam: dizziness, generalized weakness, alcoholic CT HEAD: CLINICAL INDICATION: dizziness, generalized weakness, alcoholic TECHNIQUE: Transaxial CT sequence performed through the head with 3 mm reconstruction. Sagittal and Coronal reconstruction images included. Dose reduction was employed with automated exposure control. COMPARISON: CT head from 04/04/2024 FINDINGS: Cerebral and cerebellar parenchyma: Small focus of encephalomalacia in the left temporal lobe, likely due to a small remote infarct. Mild diffuse cortical volume loss. No acute intraparenchymal hemorrhage. No midline shift. Ventricles and Extra-axial spaces: Normal in size and morphology for the patient's age. No abnormal extracerebral collection identified. Visualized Paranasal sinuses: Mucosal thickening in the left maxillary sinus. Mastoid air cells: Normal. Visualized Orbits: Normal Calvarium and skull base: Normal [facility] Barbara Henriquez M D - 07/04/2024 Patient Name: WOODY NI: 1960 [facility]#: [id number] Exam Date/Time: 07/04/2024 18:06 Procedure: CT HEAD WO IV CONTRAST Ordering Provider: BELL SCOTT Reason For Exam: dizziness, generalized weakness, alcoholic CT HEAD: CLINICAL INDICATION: dizziness, generalized weakness, alcoholic TECHNIQUE: Transaxial CT sequence performed through the head with 3 mm reconstruction. Sagittal and Coronal reconstruction images included. Dose reduction was employed with automated exposure control. COMPARISON: CT head from 04/04/2024 FINDINGS: Cerebral and cerebellar parenchyma: Small focus of encephalomalacia in the left temporal lobe, likely due to a small remote infarct. Mild diffuse cortical volume loss. No acute intraparenchymal hemorrhage. No midline shift. Ventricles and Extra-axial spaces: Normal in size and morphology for the patient's age. No abnormal extracerebral collection identified. Visualized Paranasal sinuses: Mucosal thickening in the left maxillary sinus. Mastoid air cells: Normal. Visualized Orbits: Normal Calvarium and skull base: Normal IMPRESSION: No acute intracranial abnormality. 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 Report Dictated on Electronically Signed By: Barbara Henriquez MD Electronically Signed Date/Time: 07/04/2024 6:28 PM EDT [facility] Radiology Study observation (narrative) [facility] CT Head WO contrastOrdered B y: Barbara Henriquez on 07-04-2024 [facility] [employer] Work Phone: Comprehensive metabolic 1998 panelon 07-04-2024 Albumin [Mass/Vol] 4.1 g/dL 3.5 - 5.0 g/dL [facility] ALP [Catalytic activity/Vol] 68 U/L 38 - 126 U/L [facility] ALT [Catalytic activity/Vol] 17 U/L 0 - 49 U/L [facility] Anion gap [Moles/Vol] 20 mmol/L High 3 - 13 mmol/L [facility] AST [Catalytic activity/Vol] 38 U/L 15 - 46 U/L [facility] Bilirubin [Mass/Vol] 0.8 mg/dL 0.2 - 1 .3 mg/dL [facility] Calcium [Mass/Vol] 8.8 mg/dL 8.4 - 10. 4 mg/dL [facility] Chloride [Moles/Vol] 90 mmol/L Low 98 - 10 7 mmol/L [facility] CO2 [Moles/Vol] 14 mmol/L Low 22 - 30 mmol/L [facility] Creatinine [Mass/Vol] 1.33 mg/dL High 0.66 - 1.25 mg/dL [facility] GFR/1.73 sq M.predicted (S/P/Bld) [Vol rate/Area] 59.7 mL/min Low - PINF [facility] Comment on above: Calculation based on the Chronic Kidney Disease Epidemiology Collaboration (CKD-EPI) equation refit without adjustment for race Glucose [Mass/Vol] 86 mg/dL 70 - 100 mg/dL [facility] Potassium [Moles/Vol] 2.7 mmol/L Low 3.5 - 5.1 mmol/L [facility] Protein [Mass/Vol] 6.6 g/dL 6.3 - 8.2 g/dL [facility] Sodium [Moles/Vol] 124 mmol/L Low 135 - 145 mmol/L [facility] Urea nitrogen [Mass/Vol] 18 mg/dL 9 - 20 mg/dL [facility] ECG 12-LEADon 07-04-2024 ECG 12-LEAD IMPRESSION: Sinus rhythm RBBB and LAFB Electronically Signed On 07-04-2024 17:44:57 EDT by Ashley Bell Normal [facility] ED Nursing Noteon 07-04-2024 ED Nursing Note Report to Diana BRODERICK [address] [place] [address]. Pt signed transfer consent. Emilee Gonzalez RN 07/04/[address] [facility] ED Nursing Note Attempted to call re port to W. On hold x 6 min. Will try again Emilee Gonzalez RN 07/04/24 221 Normal [facility] ED Nursing Note Pt to [facility] via [facility] are. Pt a&ox4. VSS at transfer [facility] ED Nursing Note Normal [facility] ED Provider Noteon ED Provider Note Normal [facility] ETHANOLon 07-04-2024 ETHANOL IN SER/PLAS 0.032 g/dL High 0.000-0.010 [facility] Comment on above: Result Comment: ORDE R COMMENTS:NOTE: This result is for medical treatment only. Analysis performed using non-forensic procedures. Performed By: #### L [id number], LAB99, UHM233, LAB17, FXD215, LAB46 ####Flame Channeler: ARA WRIGHT ([id number])[facility] HEALTHOctavia CEDENO (SWRLAB)[address] [place] [address] Ethanol (Bld) [Mass/Vol]on 0 07-04-2024 Ethanol [Mass/Vol] 0.032 g/dL High 0.000 - 0.010 g/dL [facility] LACTIC ACID WITH REFLEXon Lactate [Moles/Vol] 0.6 mmol/L Low 0.7-2.0 [facility] Comment on above: Performed By: #### L [id number] ####Flame Channeler: ARA WRIGHT ([phone])[facility]ALTHOct[facility] CEDENO (SWRLAB)[address] [place] [address] Lactate [Moles/Vol] 2.6 mmol/L High 0.7-2.0 [facility] Comment on above: Performed By: #### L [id number] ####Flame Channeler: ARA WRIGHT ([phone])[facility]ALTHOct[facility] CEDENO (RLAB)[address] [place] [address] LIPASEon 07-04-2024 Lipase [Catalytic activity/Vol] 133 U/L Normal 23-300 [facility] Comment on above: Performed By: #### L [id number], LAB99, AHC400, LAB17, PCD854, LAB46 ####Flame Channeler: ARA WRIGHT ([phone])[facility]ALTHOct[facility] CEDENO (RLAB)[address] [place] [address] Laboratory - Chemistry and C hemistry - challengeon 07-04-2024 Lactate [Moles/Vol] 0.6 mmol/L Low 0.7 - 2. 0 mmol/L [facility] Ammonia (P) [Moles/Vol] 17 umol/L 9 - 30 umol/L [facility] Magnesium [Mass/Vol] 1.5 mg/dL Low 1.6 - 2 .3 mg/dL [facility] Troponin I.cardiac [Mass/Vol] 0.026 ng/mL NINF - 0.034 ng/mL [facility] Beta hydroxybutyrate [Mass/Vol] 20.30 mg/dL High 0.20 - 2.81 mg/dL [facility] Lactate [Moles/Vol] 2.6 mmol/L High 0.7 - 2. 0 mmol/L [facility] Lipase [Catalytic activity/Vol] 133 U/L 23 - 300 U/L [facility] Laboratory - Chemistry and C hemistry - challengeOrdered By: Bhupinder Motta on 07-04-2024 Oxygen (Bld) [Partial pressure] 62 mm[Hg] mm(Hg) [facility] Laboratory - Coagulationon 0 07-04-2024 PT Coag (Bld) [Time] 12.4 s High 9.0 - 12.[address] [facility] Laboratory - Microbiology an d Antimicrobial susceptibilityon 07-04-2024 FLUAV RNA SHANE+probe Ql (Resp) Not detected Not Detected [facility] FLUBV RNA SHANE+probe Ql (Resp) Not detected Not Detected [facility] RSV RNA SHANE+probe Ql (Resp) Not detected Not Detected [facility] SARS-CoV-2 (COVID-19) RNA SHANE+probe Ql (Resp) Not detected Not Detected [facility] SARS-CoV-2 (COVID-19) RNA SHANE+probe Ql (Unsp spec) Methodology: real-time, RT-PCR The SARS-CoV-2, Flu A/B, and RSV Combo assay is intended for in vitro diagnostic use under the FDA Emergency Use Authorization (EUA). This test has not been FDA cleared or approved. In compliance with this authorization, please visit www.fda.gov/media/503471/ download or www.fda.gov/media/384345/ download to access the applicable information sheets. [facility] Lipase [Catalytic activity/V ol]on 07-04-2024 Interpretation and review of laboratory results Normal [facility] MAGNESIUMon 07-04-2024 Magnesium [Mass/Vol] 1.5 mg/dL Low 1.6-2.3 [facility] Comment on above: Performed By: #### L [id number], LAB99, SLJ213, LAB17, BQM159, LAB46 ####Flame Channeler: ARA WRIGHT ([phone])[facility] (SWRLAB)[address] [place] [address] [place] Magnesium [Mass/Vol]on 07-04 Interpretation and review of laboratory results Abnormal [facility] No Panel Informationon 07-04 Interpretation and review of laboratory results Abnormal [facility] Interpretation and review of laboratory results Normal [facility] Interpretation and review of laboratory results Abnormal [facility] Interpretation and review of laboratory results Abnormal [facility] Interpretation and review of laboratory results Abnormal [facility] Heart Rate 96 bpm [facility] P [place] 58 degrees [facility] TX Interval 142 ms [facility] QRS [place] -58 degrees [facility] QRSD Interval 154 ms [facility] QT Interval 450 ms [facility] QTC Interval 570 ms [facility] T Wave [place] 10 degrees [facility] Sinus rhythm RBBB and LAFB Electronically Signed On 07-04-2024 17:44:57 EDT by Ashley Bell Ashley Hilliard MD - 07/04/2024 IMPRESSION: Sinus rhythm RBBB and LAFB Electronically Signed On 07-04-2024 17:44:57 EDT by Ashley Bell [facility] No Panel InformationOrdered By: Bhupinder Motta on 07-04-2024 BASE EXCESS -8.0 mmol/L Low -3.0 - 3.0 mmol/L [facility] pCO2 32 Low [facility] PROTHROMBIN TIMEon INR Coag (PPP) [Relative time] 1.1 {INR} Normal 0.9-1.1 [facility] Comment on above: Result Comment: Fantasma mmended Anticoagulant Therapy: SEE BELOW----- INR of 2.0 - 3.0 : - Prophylaxis of Venous Thrombosis (high-risk surgery) - Treatment of Venous Thrombosis - Treatment of Pulmonary Embolism (Includes tissue heart valves, Acute Myocardial Infarction to prevent systemic embolism, Valvular Heart Disease, and Atrial Fibrillation)----- INR of 2.5 - 3.5 : - Mechanical Prosthetic Valves (high risk) - If oral anticoagulant therapy is used to prevent Myocardial Infarction Performed By: #### L [id number] ####Flame Channeler: ARA WRIGHT ([phone])[facility] S[facility] (SWRLAB)[address] [place] [address] PT Coag (PPP) [Time] 12.4 s High 9.0-12.0 [facility] Comment on above: Performed By: #### L AB320 ####Flame Channeler: ARA WRIGHT ([phone])[facility] SJTMAN (SWRLAB)[address] [place] [address] PT Coag (Bld) [Time]on 07-04 INR Coag (PPP) [Relative time] 1.1 {INR} 0.9 - 1.1 [facility] Comment on above: Recommended Anticoag ulant Therapy: SEE BELOW ----- INR of 2.0 - 3.0 : - Prophylaxis of Venous Thrombosis (high-risk surgery) - Treatment of Venous Thrombosis - Treatment of Pulmonary Embolism (Includes tissue heart valves, Acute Myocardial Infarction to prevent systemic embolism, Valvular Heart Disease, and Atrial Fibrillation) ----- INR of 2.5 - 3.5 : - Mechanical Prosthetic Valves (high risk) - If oral anticoagulant therapy is used to prevent Myocardial Infarction SARS-COV-2, FLU A/B, AND RSV COMBOon 07-04-2024 SARS-CoV-2 (COVID-19) RNA SHANE+probe Ql (Unsp spec) Normal [facility] Comment on above: Performed By: #### L [id number] ####Flame Channeler: ARA WRIGHT ([phone])[facility] DAKOTA SIMMONSAN (SWRLAB)[address] [place] [address] SARS-CoV-2, Flu A/B, and RSV Comboon 07-04-2024 Interpretation and review of laboratory results Normal [facility] TROPONIN Ion 07-04-2024 Troponin I.cardiac [Mass/Vol] 0.026 ng/mL Normal <0.034 [facility] Comment on above: Result Comment: CLAIRE Rivera COMMENTS:Patients with high levels of Biotin oral intake (ie >5 mg/day) may have falsely decreased Troponin levels. Performed By: #### L [id number], LAB99, RZO692, LAB17, AFY196, LAB46 ####Flame Channeler: ARA WRIGHT ([phone])[facility] (RLAB)[address] [place] [address] Troponin I.cardiac [Mass/Vol ]on 07-04-2024 Interpretation and review of laboratory results Normal [facility] Patients with high l evels of Biotin oral intake (ie >5 mg/day) may have falsely decreased Troponin levels. [facility] Vital signsOrdered By: Bhupinder Motta on 07-04-2024 Oxygen saturation in Blood 90.0 % High 60.0 - 80.0 % [facility] XR Chest Single viewon 07-04 No acute cardiopulmonary disease. Report Dictated on Electronically Signed By: Marjan Ruth MD Electronically Signed Date/Time: 07/04/2024 6:[address] [facility] Patient Name: WOODY NI : 1960 [id number] Exam Date/Time: 07/04/2024 17:52 Procedure: XR CHEST 1 VIEW Ordering Provider: BELL SCOTT Reason For Exam: Muscle weakness (generalized) AP CHEST X-RAY CLINICAL INDICATION: Muscle weakness (generalized) TECHNIQUE: AP portable x-ray of the chest. COMPARISON: April 04, 2024 FINDINGS: Lines/Tubes: None Heart/Mediastinum: Within normal limits Lungs: Well-inflated and clear. No pneumothorax. Bones: Degenerative changes are seen in the thoracic spine and shoulders. No acute osseous findings. [facility] Marjan Ruth MD - 07/04/2024 Patient Name: WOODY NI : 1960 Exam Date/Time: 07/04/2024 17:52 Procedure: XR CHEST 1 VIEW Ordering Provider: BELL SCOTT Reason For Exam: Muscle weakness (generalized) AP CHEST X-RAY CLINICAL INDICATION: Muscle weakness (generalized) TECHNIQUE: AP portable x-ray of the chest. COMPARISON: April 04, 2024 FINDINGS: Lines/Tubes: None Heart/Mediastinum: Within normal limits Lungs: Well-inflated and clear. No pneumothorax. Bones: Degenerative changes are seen in the thoracic spine and shoulders. No acute osseous findings. IMPRESSION: No acute cardiopulmonary disease. Report Dictated on Electronically Signed By: Marjan Ruth MD Electronically Signed Date/Time: 07/04/2024 6:00 PM EDT [facility] [employer] Radiology Study observation (narrative) [employer] XR Chest Single viewOrdered By: Marjan Ruth on 07-04-2024 [employer] Work Phone: Basic Metabolic Profile (BMP )on 06-06-2024 BUN/CRE 11.8 RATIO Normal 10-[address] [facility] Comment on above: Order Comment: 306.1 Performed By: #### L 500.2500, L100.0100, L501.5200 #### [facility] [address] [place], [address] CA,Total 8.9 mg/dL Normal 8.5-10.[address] [facility] Comment on above: Order Comment: 306.1 Performed By: #### L 500.2500, L100.0100, L501.5200 #### [facility] [address] [place], [address] Chloride [Moles/Vol] 99 mmol/L Normal 98-107 [facility] Comment on above: Order Comment: 306.1 Performed By: #### L 500.2500, L100.0100, L501.5200 #### [facility] [address] [place], [address] CO2 [Moles/Vol] 27.0 mmol/L Normal 21.0-32.[address] [facility] Comment on above: Order Comment: 306.1 Performed By: #### L 500.2500, L100.0100, L501.5200 #### [facility] [address] [place], [address] Creatinine [Mass/Vol] 1.02 mg/dL Normal 0.70-1.30 [facility] Comment on above: Order Comment: 306.1 Result Comment: The validity of the calculated GFR GFRAA in patients over 70 years has not been determined. Clinical correlation is essential. Performed By: #### L 500.2500, L100.0100, L501.5200 #### [facility] [address] [place], [address] EST GFR - AA 95 mL/min Normal >[address] [facility] Comment on above: Order Comment: 306.1 Result Comment: Afri can Polish GFR Calc Performed By: #### L 500.2500, L100.0100, L501.5200 #### [facility] [address] [place], [address] GAP 6 Normal 5-[address] [facility] Comment on above: Order Comment: 306.1 Performed By: #### L 500.2500, L100.0100, L501.5200 #### [facility] [address] [place], [address] GFR/1.73 sq M.predicted among non-blacks MDRD (S/P/Bld) [Vol rate/Area] 78 mL/min/{1.73_m2} Normal >[address] [facility] Comment on above: Order Comment: 306.1 Result Comment: Non- GFR Calc Performed By: #### L 500.2500, L100.0100, L501.5200 #### [facility] [address] [place], [address] Glucose [Mass/Vol] 93 mg/dL Normal 74-106 [facility] Comment on above: Order Comment: 306.1 Performed By: #### L 500.2500, L100.0100, L501.5200 #### [facility] [address] [place], [address] Potassium [Moles/Vol] 3.9 mmol/L Normal 3.5-5.1 [facility] Comment on above: Order Comment: 306.1 Performed By: #### L 500.2500, L100.0100, L501.5200 #### [facility] [address] [place], [address] Sodium [Moles/Vol] 132 mmol/L Low 136-145 [facility] Comment on above: Order Comment: 306.1 Performed By: #### L 500.2500, L100.0100, L501.5200 #### [facility] [address] [place], [address] Urea nitrogen [Mass/Vol] 12 mg/dL Normal 7-[address] [facility] Comment on above: Order Comment: 306.1 Performed By: #### L 500.2500, L100.0100, L501.5200 #### [facility] [address] [place], [address] CBC W/Diff, Automatedon 08 Absolute Lymph 1.55 X10 3/uL Normal 0.83-4.[address] [facility] Comment on above: Order Comment: 306.1 Performed By: #### L 500.2500, L100.0100, L501.5200 #### [facility] [address] [place], [address] Absolute Neut 2.6 X10 3/uL Normal 2.0-7.[address] [facility] Comment on above: Order Comment: 306.1 Performed By: #### L 500.2500, L100.0100, L501.5200 #### [facility] [address] [place], [address] Basophils/100 WBC (Bld) 1.5 % High 0-[address] [facility] Comment on above: Order Comment: 306.1 Performed By: #### L 500.2500, L100.0100, L501.5200 #### [facility] [address] [place], [address] Eosinophils/100 WBC (Bld) 4.2 % Normal 0-[address] [facility] Comment on above: Order Comment: 306.1 Performed By: #### L 500.2500, L100.0100, L501.5200 #### [facility] [address] [place], [address] Erythrocyte distribution width (RBC) [Ratio] 15.0 % High 11.6-14.[address] [facility] Comment on above: Order Comment: 306.1 Performed By: #### L 500.2500, L100.0100, L501.5200 #### [facility] [address] [place], [address] Hematocrit (Bld) [Volume fraction] 31.4 % Low 40-[address] [facility] Comment on above: Order Comment: 306.1 Performed By: #### L 500.2500, L100.0100, L501.5200 #### [facility] [address] [place], [address] Hemoglobin (Bld) [Mass/Vol] 10.2 g/dL Low 13.0-16.[address] [facility] Comment on above: Order Comment: 306.1 Performed By: #### L 500.2500, L100.0100, L501.5200 #### [facility] [address] [place], [address] IG% 0.600 Normal 0.0-0.[address] [facility] Comment on above: Order Comment: 306.1 Result Comment: IG% - Immature Granulocytes (promyelocytes, myelocytes and metamyelocytes) > 1% indicates that a LEFT SHIFT is Present. Performed By: #### L 500.2500, L100.0100, L501.5200 #### [facility] [address] [place], [address] Lymphocytes/100 WBC (Bld) 32.2 % Normal 19-[address] [facility] Comment on above: Order Comment: 306.1 Performed By: #### L 500.2500, L100.0100, L501.5200 #### [facility] [address] [place], [address] MCH (RBC) [Entitic mass] 31.2 pg Normal 27.0-32.[address] [facility] Comment on above: Order Comment: 306.1 Performed By: #### L 500.2500, L100.0100, L501.5200 #### [facility] [address] [place], [address] MCHC (RBC) [Mass/Vol] 32.5 g/dL Normal 32-36 [facility] Comment on above: Order Comment: 306.1 Performed By: #### L 500.2500, L100.0100, L501.5200 #### [facility] [address] [place], [address] MCV (RBC) [Entitic vol] 96.0 fL High 80-[address] [facility] Comment on above: Order Comment: 306.1 Performed By: #### L 500.2500, L100.0100, L501.5200 #### [facility] [address] [place], [address] Monocytes/100 WBC (Bld) 7.9 % Normal 0-[address] [facility] Comment on above: Order Comment: 306.1 Performed By: #### L 500.2500, L100.0100, L501.5200 #### [facility] [address] [place], [address] Neutrophils/100 WBC (Bld) 53.6 % Normal 47-[address] [facility] Comment on above: Order Comment: 306.1 Performed By: #### L 500.2500, L100.0100, L501.5200 #### [facility] [address] [place], [address] Nucleated RBC (Bld) [#/Vol] 0 10*3/uL Normal 0-[address] [facility] Comment on above: Order Comment: 306.1 Performed By: #### L 500.2500, L100.0100, L501.5200 #### [facility] [address] [place], [address] Platelet mean volume (Bld) [Entitic vol] 9.7 fL Normal 6.2-12.[address] [facility] Comment on above: Order Comment: 306.1 Performed By: #### L 500.2500, L100.0100, L501.5200 #### [facility] [address] [place], [address] Platelets (Bld) [#/Vol] 242 10*3/uL Normal 150-[address] [facility] Comment on above: Order Comment: 306.1 Performed By: #### L 500.2500, L100.0100, L501.5200 #### [facility] [address] [place], [address] RBC (Bld) [#/Vol] 3.27 10*6/uL Low 4.6-6.2 [facility] Comment on above: Order Comment: 306.1 Performed By: #### L 500.2500, L100.0100, L501.5200 #### [facility] [address] [place], [address] RDW SD 52.6 fl High 35.1-43.[address] [facility] Comment on above: Order Comment: 306.1 Performed By: #### L 500.2500, L100.0100, L501.5200 #### [facility] [address] [place], [address] WBC (Bld) [#/Vol] 4.8 10*3/uL Normal 4.4-11.0 [facility] Comment on above: Order Comment: 306.1 Performed By: #### L 500.2500, L100.0100, L501.5200 #### [facility] [address] [place], [address] Magnesiumon 06-06-2024 Magnesium [Mass/Vol] 1.5 mg/dL Low 1.6-2.6 [facility] Comment on above: Order Comment: 306.1 Performed By: #### L 500.2500, L100.0100, L501.5200 #### [facility] [address] [place], [address] Basic Metabolic Profile (BMP )on 05-30-2024 BUN/CRE 12.1 RATIO Normal 10-[address] [facility] Comment on above: Performed By: #### L 501.5300, L501.5200 #### [facility] [address] [place], [address] CA,Total 8.4 mg/dL Low 8.5-10.[address] [facility] Comment on above: Performed By: #### L 501.5300, L501.5200 #### [facility] [address] [place], [address] Chloride [Moles/Vol] 98 mmol/L Normal 98-107 [facility] Comment on above: Performed By: #### L 501.5300, L501.5200 #### [facility] [address] [place], [address] CO2 [Moles/Vol] 24.0 mmol/L Normal 21.0-32.[address] [facility] Comment on above: Performed By: #### L 501.5300, L501.5200 #### [facility] [address] [place], [address] Creatinine [Mass/Vol] 1.07 mg/dL Normal 0.70-1.30 [facility] Comment on above: Result Comment: The validity of the calculated GFR GFRAA in patients over 70 years has not been determined. Clinical correlation is essential. Performed By: #### L 501.5300, L501.5200 #### [facility] [address] [place], [address] EST GFR - AA 89 mL/min Normal >[address] [facility] Comment on above: Result Comment: Afri can Polish GFR Calc Performed By: #### L 501.5300, L501.5200 #### [facility] [address] [place], [address] GAP 8 Normal 5-[address] [facility] Comment on above: Performed By: #### L 501.5300, L501.5200 #### [facility] [address] [place], [address] GFR/1.73 sq M.predicted among non-blacks MDRD (S/P/Bld) [Vol rate/Area] 74 mL/min/{1.73_m2} Normal >[address] [facility] Comment on above: Result Comment: Non- GFR Calc Performed By: #### L 501.5300, L501.5200 #### [facility] [address] [place], [address] Glucose [Mass/Vol] 119 mg/dL High 74-106 [facility] Comment on above: Result Comment: Fast ing Glucose result from 100 to 125 mg/dL suggests IMPAIRED HOMEOSTASIS per A.D.A. criteria. Performed By: #### L 501.5300, L501.5200 #### [facility] [address] [place], [address] Potassium [Moles/Vol] 3.9 mmol/L Normal 3.5-5.1 [facility] Comment on above: Performed By: #### L 501.5300, L501.5200 #### [facility] [address] [place], [address] Sodium [Moles/Vol] 130 mmol/L Low 136-145 [facility] Comment on above: Performed By: #### L 501.5300, L501.5200 #### [facility] [address] [place], [address] Urea nitrogen [Mass/Vol] 13 mg/dL Normal 7-[address] [facility] Comment on above: Performed By: #### L 501.5300, L501.5200 #### [facility] [address] [place], [address] CBC W/Diff, Automatedon 05-19-2023 Absolute Lymph 1.36 X10 3/uL Normal 0.83-4.[address] [facility] Comment on above: Performed By: #### L 501.5300, L501.5200 #### [facility] [address] [place], [address] Absolute Neut 1.6 X10 3/uL Low 2.0-7.[address] [facility] Comment on above: Performed By: #### L 501.5300, L501.5200 #### [facility] [address] [place], [address] Basophils/100 WBC (Bld) 0.8 % Normal 0-[address] [facility] Comment on above: Performed By: #### L 501.5300, L501.5200 #### [facility] [address] [place], [address] Eosinophils/100 WBC (Bld) 1.9 % Normal 0-[address] [facility] Comment on above: Performed By: #### L 501.5300, L501.5200 #### [facility] [address] [place], [address] Erythrocyte distribution width (RBC) [Ratio] 15.3 % High 11.6-14.[address] [facility] Comment on above: Performed By: #### L 501.5300, L501.5200 #### [facility] [address] [place], [address] Hematocrit (Bld) [Volume fraction] 28.3 % Low 40-[address] [facility] Comment on above: Performed By: #### L 501.5300, L501.5200 #### [facility] [address] [place], [address] Hemoglobin (Bld) [Mass/Vol] 9.2 g/dL Low 13.0-16.[address] [facility] Comment on above: Performed By: #### L 501.5300, L501.5200 #### [facility] [address] [place], [address] IG% 0.600 Normal 0.0-0.[address] [facility] Comment on above: Result Comment: IG% - Immature Granulocytes (promyelocytes, myelocytes and metamyelocytes) > 1% indicates that a LEFT SHIFT is Present. Performed By: #### L 501.5300, L501.5200 #### [facility] [address] [place], [address] Lymphocytes/100 WBC (Bld) 37.8 % Normal 19-[address] [facility] Comment on above: Performed By: #### L 501.5300, L501.5200 #### [facility] [address] [place], [address] MCH (RBC) [Entitic mass] 31.0 pg Normal 27.0-32.[address] [facility] Comment on above: Performed By: #### L 501.5300, L501.5200 #### [facility] [address] [place], [address] MCHC (RBC) [Mass/Vol] 32.5 g/dL Normal 32-36 [facility] Comment on above: Performed By: #### L 501.5300, L501.5200 #### [facility] [address] [place], [address] MCV (RBC) [Entitic vol] 95.3 fL High 80-[address] [facility] Comment on above: Performed By: #### L 501.5300, L501.5200 #### [facility] [address] [place], [address] Monocytes/100 WBC (Bld) 14.4 % High 0-[address] [facility] Comment on above: Performed By: #### L 501.5300, L501.5200 #### [facility] [address] [place], [address] Neutrophils/100 WBC (Bld) 44.5 % Low 47-[address] [facility] Comment on above: Performed By: #### L 501.5300, L501.5200 #### [facility] [address] [place], [address] Nucleated RBC (Bld) [#/Vol] 0 10*3/uL Normal 0-[address] [facility] Comment on above: Performed By: #### L 501.5300, L501.5200 #### [facility] [address] [place], [address] Platelet mean volume (Bld) [Entitic vol] 10.0 fL Normal 6.2-12.[address] [facility] Comment on above: Performed By: #### L 501.5300, L501.5200 #### [facility] [address] [place], [address] Platelets (Bld) [#/Vol] 125 10*3/uL Low 150-[address] [facility] Comment on above: Performed By: #### L 501.5300, L501.5200 #### [facility] [address] [place], [address] RBC (Bld) [#/Vol] 2.97 10*6/uL Low 4.6-6.2 [facility] Comment on above: Performed By: #### L 501.5300, L501.5200 #### [facility] [address] [place], [address] RDW SD 53.9 fl High 35.1-43.[address] [facility] Comment on above: Performed By: #### L 501.5300, L501.5200 #### [facility] [address] [place], [address] WBC (Bld) [#/Vol] 3.6 10*3/uL Low 4.4-11.0 [facility] Comment on above: Performed By: #### L 501.5300, L501.5200 #### [facility] [address] [place], [address] Magnesiumon 05-30-2024 Magnesium [Mass/Vol] 1.2 mg/dL Low 1.6-2.6 [facility] Comment on above: Performed By: #### L 501.5300, L501.5200 #### [facility] [address] [place], [address] Basic Metabolic Profile (BMP )on 05-27-2024 BUN/CRE 7.5 RATIO Low 10-[address] [facility] Comment on above: Order Comment: 306-1 Performed By: #### L 505.5000, L501.9100, L500.4050, L100.0100, L300.3900 #### [facility] [address] [place], [address] CA,Total 8.5 mg/dL Normal 8.5-10.[address] [facility] Comment on above: Order Comment: 306-1 Performed By: #### L 505.5000, L501.9100, L500.4050, L100.0100, L300.3900 #### [facility] [address] [place], [address] Chloride [Moles/Vol] 95 mmol/L Low 98-107 [facility] Comment on above: Order Comment: 306-1 Performed By: #### L 505.5000, L501.9100, L500.4050, L100.0100, L300.3900 #### [facility] [address] [place], [address] CO2 [Moles/Vol] 27.0 mmol/L Normal 21.0-32.[address] [facility] Comment on above: Order Comment: 306- Performed By: #### L 505.5000, L501.9100, L500.4050, L100.0100, L300.3900 #### [facility] [address] [place], [address] Creatinine [Mass/Vol] 1.33 mg/dL High 0.70-1.30 [facility] Comment on above: Order Comment: 306- Result Comment: The validity of the calculated GFR GFRAA in patients over 70 years has not been determined. Clinical correlation is essential. Performed By: #### L 505.5000, L501.9100, L500.4050, L100.0100, L300.3900 #### [facility] [address] [place], [address] EST GFR - AA 70 mL/min Normal >[address] [facility] Comment on above: Order Comment: 306- Result Comment: Afri can Polish GFR Calc Performed By: #### L 505.5000, L501.9100, L500.4050, L100.0100, L300.3900 #### [facility] [address] [place], [address] GAP 8 Normal 5-[address] [facility] Comment on above: Order Comment: 306- Performed By: #### L 505.5000, L501.9100, L500.4050, L100.0100, L300.3900 #### [facility] [address] [place], [address] GFR/1.73 sq M.predicted among non-blacks MDRD (S/P/Bld) [Vol rate/Area] 58 mL/min/{1.73_m2} Low >[address] [facility] Comment on above: Order Comment: 306-1 Result Comment: Non- GFR Calc Performed By: #### L 505.5000, L501.9100, L500.4050, L100.0100, L300.3900 #### [facility] [address] [place], [address] Glucose [Mass/Vol] 85 mg/dL Normal 74-106 [facility] Comment on above: Order Comment: 306-1 Performed By: #### L 505.5000, L501.9100, L500.4050, L100.0100, L300.3900 #### [facility] [address] [place], [address] Potassium [Moles/Vol] 3.9 mmol/L Normal 3.5-5.1 [facility] Comment on above: Order Comment: 306-1 Performed By: #### L 505.5000, L501.9100, L500.4050, L100.0100, L300.3900 #### [facility] [address] [place], [address] Sodium [Moles/Vol] 130 mmol/L Low 136-145 [facility] Comment on above: Order Comment: 306-1 Performed By: #### L 505.5000, L501.9100, L500.4050, L100.0100, L300.3900 #### [facility] [address] [place], [address] Urea nitrogen [Mass/Vol] 10 mg/dL Normal 7-[address] [facility] Comment on above: Order Comment: 306-1 Performed By: #### L 505.5000, L501.9100, L500.4050, L100.0100, L300.3900 #### [facility] [address] [place], [address] CBC W/Diff, Automatedon 08-0 9-2024 Absolute Lymph 1.55 X10 3/uL Normal 0.83-4.[address] [facility] Comment on above: Order Comment: 306-1 Performed By: #### L 505.5000, L501.9100, L500.4050, L100.0100, L300.3900 #### [facility] [address] [place], [address] Absolute Neut 1.8 X10 3/uL Low 2.0-7.[address] [facility] Comment on above: Order Comment: 306-1 Performed By: #### L 505.5000, L501.9100, L500.4050, L100.0100, L300.3900 #### [facility] [address] [place], [address] Basophils/100 WBC (Bld) 0.7 % Normal 0-[address] [facility] Comment on above: Order Comment: 306-1 Performed By: #### L 505.5000, L501.9100, L500.4050, L100.0100, L300.3900 #### [facility] [address] [place], [address] Eosinophils/100 WBC (Bld) 2.9 % Normal 0-[address] [facility] Comment on above: Order Comment: 306-1 Performed By: #### L 505.5000, L501.9100, L500.4050, L100.0100, L300.3900 #### [facility] [address] [place], [address] Erythrocyte distribution width (RBC) [Ratio] 15.0 % High 11.6-14.[address] [facility] Comment on above: Order Comment: 306-1 Performed By: #### L 505.5000, L501.9100, L500.4050, L100.0100, L300.3900 #### [facility] [address] [place], [address] Hematocrit (Bld) [Volume fraction] 28.8 % Low 40-[address] [facility] Comment on above: Order Comment: 306-1 Performed By: #### L 505.5000, L501.9100, L500.4050, L100.0100, L300.3900 #### [facility] [address] [place], [address] Hemoglobin (Bld) [Mass/Vol] 9.6 g/dL Low 13.0-16.[address] [facility] Comment on above: Order Comment: 306-1 Performed By: #### L 505.5000, L501.9100, L500.4050, L100.0100, L300.3900 #### [facility] [address] [place], [address] IG% 0.700 Normal 0.0-0.[address] [facility] Comment on above: Order Comment: 306-1 Result Comment: IG% - Immature Granulocytes (promyelocytes, myelocytes and metamyelocytes) > 1% indicates that a LEFT SHIFT is Present. Performed By: #### L 505.5000, L501.9100, L500.4050, L100.0100, L300.3900 #### [facility] [address] [place], [address] Lymphocytes/100 WBC (Bld) 37.8 % Normal 19-[address] [facility] Comment on above: Order Comment: 306-1 Performed By: #### L 505.5000, L501.9100, L500.4050, L100.0100, L300.3900 #### [facility] [address] [place], [address] MCH (RBC) [Entitic mass] 31.1 pg Normal 27.0-32.[address] [facility] Comment on above: Order Comment: 306-1 Performed By: #### L 505.5000, L501.9100, L500.4050, L100.0100, L300.3900 #### [facility] [address] [place], [address] MCHC (RBC) [Mass/Vol] 33.3 g/dL Normal 32-36 [facility] Comment on above: Order Comment: 306-1 Performed By: #### L 505.5000, L501.9100, L500.4050, L100.0100, L300.3900 #### [facility] [address] [place], [address] MCV (RBC) [Entitic vol] 93.2 fL Normal 80-[address] [facility] Comment on above: Order Comment: 306-1 Performed By: #### L 505.5000, L501.9100, L500.4050, L100.0100, L300.3900 #### [facility] [address] [place], [address] Monocytes/100 WBC (Bld) 15.1 % High 0-[address] [facility] Comment on above: Order Comment: 306-1 Performed By: #### L 505.5000, L501.9100, L500.4050, L100.0100, L300.3900 #### [facility] [address] [place], [address] Neutrophils/100 WBC (Bld) 42.8 % Low 47-[address] [facility] Comment on above: Order Comment: 306-1 Performed By: #### L 505.5000, L501.9100, L500.4050, L100.0100, L300.3900 #### [facility] [address] [place], [address] Nucleated RBC (Bld) [#/Vol] 0 10*3/uL Normal 0-[address] [facility] Comment on above: Order Comment: 306-1 Performed By: #### L 505.5000, L501.9100, L500.4050, L100.0100, L300.3900 #### [facility] [address] [place], [address] Platelet mean volume (Bld) [Entitic vol] 10.7 fL Normal 6.2-12.[address] [facility] Comment on above: Order Comment: 306-1 Performed By: #### L 505.5000, L501.9100, L500.4050, L100.0100, L300.3900 #### [facility] [address] [place], [address] Platelets (Bld) [#/Vol] 69 10*3/uL Low 150-[address] [facility] Comment on above: Order Comment: 306-1 Performed By: #### L 505.5000, L501.9100, L500.4050, L100.0100, L300.3900 #### [facility] [address] [place], [address] RBC (Bld) [#/Vol] 3.09 10*6/uL Low 4.6-6.2 [facility] Comment on above: Order Comment: 306-1 Performed By: #### L 505.5000, L501.9100, L500.4050, L100.0100, L300.3900 #### [facility] [address] [place], [address] RDW SD 51.8 fl High 35.1-43.[address] [facility] Comment on above: Order Comment: 306-1 Performed By: #### L 505.5000, L501.9100, L500.4050, L100.0100, L300.3900 #### [facility] [address] [place], [address] WBC (Bld) [#/Vol] 4.1 10*3/uL Low 4.4-11.0 [facility] Comment on above: Order Comment: 306-1 Performed By: #### L 505.5000, L501.9100, L500.4050, L100.0100, L300.3900 #### [facility] [address] [place], [place], [address] Magnesiumon 05-27-2024 Magnesium [Mass/Vol] 0.8 mg/dL Invalid Interpretation Code 1.6-2.[address] [facility] Comment on above: Order Comment: 306 Result Comment: Crit ical Result(s) Called at: 08:22:29 05/27/2024 by: JONNY Moraes. Results read back by same. Performed By: #### L 505.5000, L501.9100, L500.4050, L100.0100, L300.3900 #### [facility] [address] [place], [address] Thyroid Stim Hormone (TSH)on 05-27-2024 TSH 6.41 uIU/mL High 0.358-3.[address] [facility] Comment on above: Order Comment: Performed By: #### L 505.5000, L501.9100, L500.4050, L100.0100, L300.3900 #### [facility] [address] [place], [address] Vitamin B12on 05-27-2024 Cobalamin (Vitamin B12) [Mass/Vol] 737 pg/mL Normal 211-[address] [facility] Comment on above: Order Comment: Performed By: #### L 505.5000, L501.9100, L500.4050, L100.0100, L300.3900 #### [facility] [address] [place], [address] Vitamin D,25 Hydroxyon 05-27 Vitamin D 25-OH 64.3 ng/mL Normal [facility] Comment on above: Order Comment: Result Comment: Celine min D 25(OH) Status Range Deficiency <20 ng/mL (50nmol/L) Insufficiency 20 - 30 ng/mL (50 - 75 nmol/L) Sufficiency 30 - 100 ng/mL (75 - 250 nmol/L) Toxicity >100 ng/mL (>250 nmol/L) Performed By: #### L 505.5000, L501.9100, L500.4050, L100.0100, L300.3900 #### [facility] [address] [place], [address] Renal Profileon 05-26-2024 Albumin [Mass/Vol] 2.6 g/dL Low 3.2-5.0 [facility] Comment on above: Performed By: #### L 505.5000, L501.9100, L500.4050, L100.0100, L300.3900 #### [facility] [address] [place], [address] BUN/CRE 6.3 RATIO Low 10-[address] [facility] Comment on above: Performed By: #### L 505.5000, L501.9100, L500.4050, L100.0100, L300.3900 #### [facility] [address] [place], [address] CA,Total 8.4 mg/dL Low 8.5-10.[address] [facility] Comment on above: Performed By: #### L 505.5000, L501.9100, L500.4050, L100.0100, L300.3900 #### [facility] [address] [place], [address] Chloride [Moles/Vol] 100 mmol/L Normal 98-107 [facility] Comment on above: Performed By: #### L 505.5000, L501.9100, L500.4050, L100.0100, L300.3900 #### [facility] [address] [place], [address] CO2 [Moles/Vol] 26.0 mmol/L Normal 21.0-32.[address] [facility] Comment on above: Performed By: #### L 505.5000, L501.9100, L500.4050, L100.0100, L300.3900 #### [facility] [address] [place], [address] Creatinine [Mass/Vol] 1.11 mg/dL Normal 0.70-1.30 [facility] Comment on above: Result Comment: The validity of the calculated GFR GFRAA in patients over 70 years has not been determined. Clinical correlation is essential. Performed By: #### L 505.5000, L501.9100, L500.4050, L100.0100, L300.3900 #### [facility] [address] [place], [address] ECRCL 67.90 ml/min Normal [facility] Comment on above: Performed By: #### L 505.5000, L501.9100, L500.4050, L100.0100, L300.3900 #### [facility] [address] [place], [address] EST GFR - AA 86 mL/min Normal >[address] [facility] Comment on above: Result Comment: Afri can Polish GFR Calc Performed By: #### L 505.5000, L501.9100, L500.4050, L100.0100, L300.3900 #### [facility] [address] [place], [address] GFR/1.73 sq M.predicted among non-blacks MDRD (S/P/Bld) [Vol rate/Area] 71 mL/min/{1.73_m2} Normal >[address] [facility] Comment on above: Result Comment: Non- GFR Calc Performed By: #### L 505.5000, L501.9100, L500.4050, L100.0100, L300.3900 #### [facility] [address] [place], [address] Glucose [Mass/Vol] 92 mg/dL Normal 74-106 [facility] Comment on above: Performed By: #### L 505.5000, L501.9100, L500.4050, L100.0100, L300.3900 #### [facility] [address] [place], [address] Phosphate [Mass/Vol] 3.6 mg/dL Normal 2.5-4.9 [facility] Comment on above: Performed By: #### L 505.5000, L501.9100, L500.4050, L100.0100, L300.3900 #### [facility] [address] [place], [address] Potassium [Moles/Vol] 4.1 mmol/L Normal 3.5-5.1 [facility] Comment on above: Performed By: #### L 505.5000, L501.9100, L500.4050, L100.0100, L300.3900 #### [facility] [address] [place], [address] Sodium [Moles/Vol] 132 mmol/L Low 136-145 [facility] Comment on above: Performed By: #### L 505.5000, L501.9100, L500.4050, L100.0100, L300.3900 #### [facility] [address] [place], [address] Urea nitrogen [Mass/Vol] 7 mg/dL Normal 7-[address] [facility] Comment on above: Performed By: #### L 505.5000, L501.9100, L500.4050, L100.0100, L300.3900 #### [facility] [facility] [address] [place], [address] Renal Profileon 05-25-2024 Albumin [Mass/Vol] 3.2 g/dL Normal 3.2-5.0 [facility] Comment on above: Performed By: #### L 505.5000, L501.9100, L500.4050, L100.0100, L300.3900 #### [facility] [address] [place], [address] BUN/CRE 6.6 RATIO Low 10-[address] [facility] Comment on above: Performed By: #### L 505.5000, L501.9100, L500.4050, L100.0100, L300.3900 #### [facility] [address] [place], [address] CA,Total 8.8 mg/dL Normal 8.5-10.[address] [facility] Comment on above: Performed By: #### L 505.5000, L501.9100, L500.4050, L100.0100, L300.3900 #### [facility] [address] [place], [address] Chloride [Moles/Vol] 97 mmol/L Low 98-107 [facility] Comment on above: Performed By: #### L 505.5000, L501.9100, L500.4050, L100.0100, L300.3900 #### [facility] [address] [place], [address] CO2 [Moles/Vol] 22.0 mmol/L Normal 21.0-32.[address] [facility] Comment on above: Performed By: #### L 505.5000, L501.9100, L500.4050, L100.0100, L300.3900 #### [facility] [address] [place], [address] Creatinine [Mass/Vol] 1.06 mg/dL Normal 0.70-1.30 [facility] Comment on above: Result Comment: The validity of the calculated GFR GFRAA in patients over 70 years has not been determined. Clinical correlation is essential. Performed By: #### L 505.5000, L501.9100, L500.4050, L100.0100, L300.3900 #### [facility] [address] [place], [address] ECRCL 71.10 ml/min Normal [facility] Comment on above: Performed By: #### L 505.5000, L501.9100, L500.4050, L100.0100, L300.3900 #### [facility] [address] [place], [address] EST GFR - AA 90 mL/min Normal >[address] [facility] Comment on above: Result Comment: Afri can Polish GFR Calc Performed By: #### L 505.5000, L501.9100, L500.4050, L100.0100, L300.3900 #### [facility] [address] [place], [address] GFR/1.73 sq M.predicted among non-blacks MDRD (S/P/Bld) [Vol rate/Area] 75 mL/min/{1.73_m2} Normal >[address] [facility] Comment on above: Result Comment: Non- GFR Calc Performed By: #### L 505.5000, L501.9100, L500.4050, L100.0100, L300.3900 #### [facility] [address] [place], [address] Glucose [Mass/Vol] 147 mg/dL High 74-106 [facility] Comment on above: Result Comment: Fast ing Glucose result greater than or equal to 126 mg/dL suggests DIABETES MELLITUS per A.D.A. criteria. Performed By: #### L 505.5000, L501.9100, L500.4050, L100.0100, L300.3900 #### [facility] [address] [place], [address] Phosphate [Mass/Vol] 2.6 mg/dL Normal 2.5-4.9 [facility] Comment on above: Performed By: #### L 505.5000, L501.9100, L500.4050, L100.0100, L300.3900 #### [facility] [address] [place], [address] Potassium [Moles/Vol] 3.6 mmol/L Normal 3.5-5.1 [facility] Comment on above: Performed By: #### L 505.5000, L501.9100, L500.4050, L100.0100, L300.3900 #### [facility] [address] [place], [address] Sodium [Moles/Vol] 130 mmol/L Low 136-145 [facility] Comment on above: Performed By: #### L 505.5000, L501.9100, L500.4050, L100.0100, L300.3900 #### [facility] [address] [place], [address] Urea nitrogen [Mass/Vol] 7 mg/dL Normal 7-[address] [facility] Comment on above: Performed By: #### L 505.5000, L501.9100, L500.4050, L100.0100, L300.3900 #### [facility] [address] [place], [address] Bedside Glucoseon 05-24-2024 FINGERSTICK GLU 148 mg/dL High 74-[address] [facility] Comment on above: Result Comment: CORINNE GEMENT OF PATIENT CARE PER NURSING PROTOCOL Performed By: #### L 505.5000, L501.9100, L500.4050, L100.0100, L300.3900 #### [facility] [address] [place], [address] FINGERSTICK GLU 102 mg/dL Normal 74-[address] [facility] Comment on above: Result Comment: CORINNE GEMENT OF PATIENT CARE PER NURSING PROTOCOL Performed By: #### L 505.5000, L501.9100, L500.4050, L100.0100, L300.3900 #### [facility] [address] [place], [address] CBC-Complete Blood Cnt No Di ffon 05-24-2024 PATH REV Reviewed Normal [facility] Comment on above: Result Comment: Panc ytopenia. Leukopenia and neutropenia. Normocytic anemia. MARKED Thrombocytopenia. Clinical correlation necessary. Sundar Lei M.D. 05/24/24 AMENDED REPORT 05/24/24 1453 PATH REV previously reported as: February Performed By: #### L 501.5300, L501.5200 #### [facility] [address] [place], [address] Renal Profileon 05-24-2024 Albumin [Mass/Vol] 2.9 g/dL Low 3.2-5.0 [facility] Comment on above: Performed By: #### L 505.5000, L501.9100, L500.4050, L100.0100, L300.3900 #### [facility] [address] [place], [address] BUN/CRE 7.4 RATIO Low 10-[address] [facility] Comment on above: Performed By: #### L 505.5000, L501.9100, L500.4050, L100.0100, L300.3900 #### [facility] [address] [place], [address] CA,Total 8.5 mg/dL Normal 8.5-10.[address] [facility] Comment on above: Performed By: #### L 505.5000, L501.9100, L500.4050, L100.0100, L300.3900 #### [facility] [address] [place], [address] Chloride [Moles/Vol] 103 mmol/L Normal 98-107 [facility] Comment on above: Performed By: #### L 505.5000, L501.9100, L500.4050, L100.0100, L300.3900 #### [facility] [address] [place], [address] CO2 [Moles/Vol] 26.0 mmol/L Normal 21.0-32.[address] [facility] Comment on above: Performed By: #### L 505.5000, L501.9100, L500.4050, L100.0100, L300.3900 #### [facility] [address] [place], [address] Creatinine [Mass/Vol] 0.95 mg/dL Normal 0.70-1.30 [facility] Comment on above: Result Comment: The validity of the calculated GFR GFRAA in patients over 70 years has not been determined. Clinical correlation is essential. Performed By: #### L 505.5000, L501.9100, L500.4050, L100.0100, L300.3900 #### [facility] [address] [place], [address] ECRCL 79.33 ml/min Normal [facility] Comment on above: Performed By: #### L 505.5000, L501.9100, L500.4050, L100.0100, L300.3900 #### [facility] [address] [place], [address] EST GFR - AA 103 mL/min Normal >[address] [facility] Comment on above: Result Comment: Afri can Polish GFR Calc Performed By: #### L 505.5000, L501.9100, L500.4050, L100.0100, L300.3900 #### [facility] [address] [place], [address] GFR/1.73 sq M.predicted among non-blacks MDRD (S/P/Bld) [Vol rate/Area] 85 mL/min/{1.73_m2} Normal >[address] [facility] Comment on above: Result Comment: Non- GFR Calc Performed By: #### L 505.5000, L501.9100, L500.4050, L100.0100, L300.3900 #### [facility] [address] [place], [address] Glucose [Mass/Vol] 108 mg/dL High 74-106 [facility] Comment on above: Result Comment: Fast ing Glucose result from 100 to 125 mg/dL suggests IMPAIRED HOMEOSTASIS per A.D.A. criteria. Performed By: #### L 505.5000, L501.9100, L500.4050, L100.0100, L300.3900 #### [facility] [address] [place], [address] Phosphate [Mass/Vol] 1.0 mg/dL Invalid Interpretation Code 2.5-4.[address] [facility] Comment on above: Result Comment: Crit ical Result(s) Called at: 07:38:55 05/24/2024 by: JONNY SLAUGHTER to Aminta Alas. Results read back by same. Performed By: #### L 505.5000, L501.9100, L500.4050, L100.0100, L300.3900 #### [facility] [address] [place], [address] Potassium [Moles/Vol] 3.9 mmol/L Normal 3.5-5.1 [facility] Comment on above: Performed By: #### L 505.5000, L501.9100, L500.4050, L100.0100, L300.3900 #### [facility] [address] [place], [address] Sodium [Moles/Vol] 135 mmol/L Low 136-145 [facility] Comment on above: Performed By: #### L 505.5000, L501.9100, L500.4050, L100.0100, L300.3900 #### [facility] [address] [place], [address] Urea nitrogen [Mass/Vol] 7 mg/dL Normal 7-[address] [facility] Comment on above: Performed By: #### L 505.5000, L501.9100, L500.4050, L100.0100, L300.3900 #### [facility] [address] [place], [address] Basic Metabolic Profile (BMP )on 05-23-2024 BUN/CRE 8.4 RATIO Low 10-[address] [facility] Comment on above: Performed By: #### L 505.5000, L501.9100, L500.4050, L100.0100, L300.3900 #### [facility] [address] [place], [address] CA,Total 8.2 mg/dL Low 8.5-10.[address] [facility] Comment on above: Performed By: #### L 505.5000, L501.9100, L500.4050, L100.0100, L300.3900 #### [facility] [address] [place], [address] Chloride [Moles/Vol] 103 mmol/L Normal 98-107 [facility] Comment on above: Performed By: #### L 505.5000, L501.9100, L500.4050, L100.0100, L300.3900 #### [facility] [address] [place], [address] CO2 [Moles/Vol] 26.0 mmol/L Normal 21.0-32.[address] [facility] Comment on above: Performed By: #### L 505.5000, L501.9100, L500.4050, L100.0100, L300.3900 #### [facility] [address] [place], [address] Creatinine [Mass/Vol] 0.95 mg/dL Normal 0.70-1.30 [facility] Comment on above: Result Comment: The validity of the calculated GFR GFRAA in patients over 70 years has not been determined. Clinical correlation is essential. Performed By: #### L 505.5000, L501.9100, L500.4050, L100.0100, L300.3900 #### [facility] [address] [place], [address] ECRCL 79.33 ml/min Normal [facility] Comment on above: Performed By: #### L 505.5000, L501.9100, L500.4050, L100.0100, L300.3900 #### [facility] [address] [place], [address] EST GFR - AA 102 mL/min Normal >[address] [facility] Comment on above: Result Comment: Afri can Polish GFR Calc Performed By: #### L 505.5000, L501.9100, L500.4050, L100.0100, L300.3900 #### [facility] [address] [place], [address] GAP 7 Normal 5-[address] [facility] Comment on above: Performed By: #### L 505.5000, L501.9100, L500.4050, L100.0100, L300.3900 #### [facility] [address] [place], [address] GFR/1.73 sq M.predicted among non-blacks MDRD (S/P/Bld) [Vol rate/Area] 85 mL/min/{1.73_m2} Normal >[address] [facility] Comment on above: Result Comment: Non- GFR Calc Performed By: #### L 505.5000, L501.9100, L500.4050, L100.0100, L300.3900 #### [facility] [address] [place], [address] Glucose [Mass/Vol] 124 mg/dL High 74-106 [facility] Comment on above: Result Comment: Fast ing Glucose result from 100 to 125 mg/dL suggests IMPAIRED HOMEOSTASIS per A.D.A. criteria. Performed By: #### L 505.5000, L501.9100, L500.4050, L100.0100, L300.3900 #### [facility] [address] [place], [address] Potassium [Moles/Vol] 3.7 mmol/L Normal 3.5-5.1 [facility] Comment on above: Performed By: #### L 505.5000, L501.9100, L500.4050, L100.0100, L300.3900 #### [facility] [address] [place], [address] Sodium [Moles/Vol] 136 mmol/L Normal 136-145 [facility] Comment on above: Performed By: #### L 505.5000, L501.9100, L500.4050, L100.0100, L300.3900 #### [facility] [address] [place], [address] Urea nitrogen [Mass/Vol] 8 mg/dL Normal 7-[address] [facility] Comment on above: Performed By: #### L 505.5000, L501.9100, L500.4050, L100.0100, L300.3900 #### [facility] [address] [place], [address] Bedside Glucoseon 05-23-2024 FINGERSTICK GLU 143 mg/dL High 74-[address] [facility] Comment on above: Result Comment: CORINNE GEMENT OF PATIENT CARE PER NURSING PROTOCOL Performed By: #### L 505.5000, L501.9100, L500.4050, L100.0100, L300.3900 #### [facility] [address] [place], [address] FINGERSTICK GLU 115 mg/dL High 74-[address] [facility] Comment on above: Result Comment: CORINEN GEMENT OF PATIENT CARE PER NURSING PROTOCOL Performed By: #### L 505.5000, L501.9100, L500.4050, L100.0100, L300.3900 #### [facility] [address] [place], [address] FINGERSTICK GLU 139 mg/dL High 74-[address] [facility] Comment on above: Result Comment: CORINNE LONDONO OF PATIENT CARE PER NURSING PROTOCOL Performed By: #### L 505.5000, L501.9100, L500.4050, L100.0100, L300.3900 #### [facility] [address] [place], [address] CBC W/Diff, Automatedon 08-0 PATH REV Reviewed Normal [facility] Comment on above: Order Comment: CRITI JAMES VALUE VERIFIED. CALLED TO DEMETRIUS GRIFFITH05/22/24 Huma3 Jonh Powers.RESULTS READ BACK BY SAME. Result Comment: Panc ytopenia. Leukopenia and neutropenia. Normocytic anemia. MARKED Thrombocytopenia. Clinical correlation necessary. Sundar Lei M.D. 05/23/24 AMENDED REPORT 05/23/24 1332 PATH REV previously reported as: February kathleen Performed By: #### L 505.5000, L501.9100, L500.4050, L100.0100, L300.3900 #### [facility] [address] [place], [address] Differential Commenton 05-23 SMEAR COMMENT SCANNED Normal [facility] Comment on above: Result Comment: JÚNIOR ED THROMBOCYTOPENIA Performed By: #### L 501.5300, L501.5200 #### [facility] [address] [place], [address] Magnesiumon 05-23-2024 Magnesium [Mass/Vol] 2.2 mg/dL Normal 1.6-2.6 [facility] Comment on above: Performed By: #### L 505.5000, L501.9100, L500.4050, L100.0100, L300.3900 #### [facility] [address] [place], [address] Phosphoruson 05-23-2024 Phosphate [Mass/Vol] 1.3 mg/dL Low 2.5-4.9 [facility] Comment on above: Performed By: #### L 505.5000, L501.9100, L500.4050, L100.0100, L300.3900 #### [facility] [address] [place], [address] Bedside Glucoseon 05-22-2024 FINGERSTICK GLU 105 mg/dL Normal 74-[address] [facility] Comment on above: Result Comment: CORINNE GEMENT OF PATIENT CARE PER NURSING PROTOCOL Performed By: #### L 505.5000, L501.9100, L500.4050, L100.0100, L300.3900 #### [facility] [address] [place], [address] FINGERSTICK GLU 52 mg/dL Low 74-[address] [facility] Comment on above: Result Comment: CORINNE GEMENT OF PATIENT CARE PER NURSING PROTOCOL Performed By: #### L 501.5300, L501.5200 #### [facility] [address] [place], [address] FINGERSTICK GLU 92 mg/dL Normal 74-[address] [facility] Comment on above: Result Comment: CORINNE GEMENT OF PATIENT CARE PER NURSING PROTOCOL Performed By: #### L 505.5000, L501.9100, L500.4050, L100.0100, L300.3900 #### [facility] [address] [place], [address] FINGERSTICK GLU 98 mg/dL Normal 74-[address] [facility] Comment on above: Result Comment: CORINNE GEMENT OF PATIENT CARE PER NURSING PROTOCOL Performed By: #### L 505.5000, L501.9100, L500.4050, L100.0100, L300.3900 #### [facility] [address] [place], [address] FINGERSTICK GLU 69 mg/dL Low 74-[address] [facility] Comment on above: Result Comment: CORINNE GEMENT OF PATIENT CARE PER NURSING PROTOCOL Performed By: #### L 505.5000, L501.9100, L500.4050, L100.0100, L300.3900 #### [facility] [address] [place], [address] Comprehensive Metabolic Prof ilon 05-22-2024 Albumin [Mass/Vol] 3.2 g/dL Normal 3.2-5.0 [facility] Comment on above: Performed By: #### L 505.5000, L501.9100, L500.4050, L100.0100, L300.3900 #### [facility] [address] [place], [address] Albumin/Globulin [Mass ratio] 1.0 {ratio} Normal 0.9-2.[address] [facility] Comment on above: Performed By: #### L 505.5000, L501.9100, L500.4050, L100.0100, L300.3900 #### [facility] [address] [place], [address] ALK P 87 U/L Normal 45-[address] [facility] Comment on above: Performed By: #### L 505.5000, L501.9100, L500.4050, L100.0100, L300.3900 #### [facility] [address] [place], [address] ALT [Catalytic activity/Vol] 76 U/L High 16-[address] [facility] Comment on above: Performed By: #### L 505.5000, L501.9100, L500.4050, L100.0100, L300.3900 #### [facility] [address] [place], [address] AST [Catalytic activity/Vol] 168 U/L High 15-[address] [facility] Comment on above: Performed By: #### L 505.5000, L501.9100, L500.4050, L100.0100, L300.3900 #### [facility] [address] [place], [address] Bilirubin [Mass/Vol] 1.00 mg/dL Normal 0.20-1.00 [facility] Comment on above: Result Comment: For patients on eltrombopag therapy, use of Dimension [place] TBIL is not recommended. Performed By: #### L 505.5000, L501.9100, L500.4050, L100.0100, L300.3900 #### [facility] [address] [place], [address] BUN/CRE 8.7 RATIO Low 10-[address] [facility] Comment on above: Performed By: #### L 505.5000, L501.9100, L500.4050, L100.0100, L300.3900 #### [facility] [address] [place], [address] CA,Total 7.9 mg/dL Low 8.5-10.[address] [facility] Comment on above: Performed By: #### L 505.5000, L501.9100, L500.4050, L100.0100, L300.3900 #### [facility] [address] [place], [address] Chloride [Moles/Vol] 101 mmol/L Normal 98-107 [facility] Comment on above: Performed By: #### L 505.5000, L501.9100, L500.4050, L100.0100, L300.3900 #### [facility] [address] [place], [address] CO2 [Moles/Vol] 18.0 mmol/L Low 21.0-32.[address] [facility] Comment on above: Performed By: #### L 505.5000, L501.9100, L500.4050, L100.0100, L300.3900 #### [facility] [address] [place], [address] Creatinine [Mass/Vol] 1.04 mg/dL Normal 0.70-1.30 [facility] Comment on above: Result Comment: The validity of the calculated GFR GFRAA in patients over 70 years has not been determined. Clinical correlation is essential. Performed By: #### L 505.5000, L501.9100, L500.4050, L100.0100, L300.3900 #### [facility] [address] [place], [address] ECRCL 72.47 ml/min Normal [facility] Comment on above: Performed By: #### L 505.5000, L501.9100, L500.4050, L100.0100, L300.3900 #### [facility] [address] [place], [address] EST GFR - AA 92 mL/min Normal >[address] [facility] Comment on above: Result Comment: Afri can Polish GFR Calc Performed By: #### L 505.5000, L501.9100, L500.4050, L100.0100, L300.3900 #### [facility] [address] [place], [address] GAP 14 Normal 5-[address] [facility] Comment on above: Performed By: #### L 505.5000, L501.9100, L500.4050, L100.0100, L300.3900 #### [facility] [address] [place], [address] GFR/1.73 sq M.predicted among non-blacks MDRD (S/P/Bld) [Vol rate/Area] 76 mL/min/{1.73_m2} Normal >[address] [facility] Comment on above: Result Comment: Non- GFR Calc Performed By: #### L 505.5000, L501.9100, L500.4050, L100.0100, L300.3900 #### [facility] [address] [place], [address] Globulin (S) [Mass/Vol] 3.1 g/dL Normal 2.2-4.[address] [facility] Comment on above: Performed By: #### L 505.5000, L501.9100, L500.4050, L100.0100, L300.3900 #### [facility] [address] [place], [address] Glucose [Mass/Vol] 91 mg/dL Normal 74-106 [facility] Comment on above: Performed By: #### L 505.5000, L501.9100, L500.4050, L100.0100, L300.3900 #### [facility] [address] [place], [address] Potassium [Moles/Vol] 4.0 mmol/L Normal 3.5-5.1 [facility] Comment on above: Performed By: #### L 505.5000, L501.9100, L500.4050, L100.0100, L300.3900 #### [facility] [address] [place], [address] Sodium [Moles/Vol] 133 mmol/L Low 136-145 [facility] Comment on above: Performed By: #### L 505.5000, L501.9100, L500.4050, L100.0100, L300.3900 #### [facility] [address] [place], [address] T PROT 6.3 g/dL Low 6.4-8.[address] [facility] Comment on above: Performed By: #### L 505.5000, L501.9100, L500.4050, L100.0100, L300.3900 #### [facility] [address] [place], [address] Urea nitrogen [Mass/Vol] 9 mg/dL Normal 7-[address] [facility] Comment on above: Performed By: #### L 505.5000, L501.9100, L500.4050, L100.0100, L300.3900 #### [facility] [address] [place], [address] Magnesiumon 05-22-2024 Magnesium [Mass/Vol] 1.4 mg/dL Low 1.6-2.6 [facility] Comment on above: Performed By: #### L 505.5000, L501.9100, L500.4050, L100.0100, L300.3900 #### [facility] [address] [place], [address] Phosphoruson 05-22-2024 Phosphate [Mass/Vol] 1.8 mg/dL Low 2.5-4.9 [facility] Comment on above: Performed By: #### L 505.5000, L501.9100, L500.4050, L100.0100, L300.3900 #### [facility] [address] [place], [address] Alcohol, Blood (Medical)-Ser umon 05-21-2024 SERUM ETOH 294.0 mg/dL Normal [facility] Comment on above: Result Comment: The serum:whole blood ethanol ratio is approximately 1.14 and varies slightly with hematocrit. Medical Alcohol reference interval and critical value in non-tolerant individuals; 50 - 100 Impairment 100 Intoxication 100 - 250 Severe Poisoning 250 - 400 Deep/possible fatal coma Performed By: #### L 505.5000, L501.9100, L500.4050, L100.0100, L300.3900 #### [facility] [address] [place], [address] Brain/Head without Contrasto n 05-21-2024 Brain/Head without Contrast [facility] Imaging Services [address] [place] [address] Brain/Head without Contrast MR#: [id number] Acct: [id number] Name: WOODY NI Rep #: [id number] : 1960 M 64 From: Mundo Mackenzie DO PCP: Dr. Jani Quezada MD Status: REG ER Study: Brain/Head without Contrast Date of Exam: 01/09 Exam# [id number] Ordering Dr: Stella Mackay DO [id number] STUDY: CT BRAIN WITHOUT CONTRAST REASON FOR EXAM: Male, 64 years old. fall RADIATION DOSAGE (If Supplied By Facility): CTDIvol = ( 44.99 ) mGy, DLP = ( 829.85 ) mGycm TECHNIQUE: Transaxial CT imaging of the brain was performed without administration of intravenous contrast material. Individualized dose optimization techniques were used for this CT. COMPARISON: No relevant priors. FINDINGS: Normal soft tissue structures. Normal calvarium. Normal size ventricles and extra-axial spaces for the patient''s age. Normal white matter tracts of the cerebral hemispheres. Normal basal ganglia and thalami. Normal brainstem. Normal cerebellum. There is no intracranial hemorrhage. There are no findings of an acute ischemic infarction. Normal visualized paranasal sinuses. CT/Brain/Head without Contrast IMPRESSION: Normal unenhanced CT scan of the brain. Electronically Signed: Mundo Mackenzie DO at 21:57 EDT Reading Location ID and State: [facility] / [place] Tel [phone], Service support , CC: Dr. Jani Quezada MD; Dr. Stella Mackay DO Senior Manufacturing Test Engineer: Signed Normal [facility] CBC W/Diff, Automatedon Anisocytosis Ql (Bld) RARE Normal [facility] Comment on above: Performed By: #### L 505.5000, L501.9100, L500.4050, L100.0100, L300.3900 #### [facility] [address] [place], [address] MACROCYTOSIS RARE Normal [facility] Comment on above: Performed By: #### L 505.5000, L501.9100, L500.4050, L100.0100, L300.3900 #### [facility] [address] [place], [address] PLT EST MOD DEC Normal ADEQ [facility] Comment on above: Performed By: #### L 505.5000, L501.9100, L500.4050, L100.0100, L300.3900 #### [facility] [address] [place], [address] RED CELL MORPH N CHROM Normal NORM C C [facility] Comment on above: Performed By: #### L 505.5000, L501.9100, L500.4050, L100.0100, L300.3900 #### [facility] [address] [place], [address] SMEAR COMMENT SEECOMMENT Normal [facility] Comment on above: Result Comment: LYMP HOPENIA NOTED Performed By: #### L 505.5000, L501.9100, L500.4050, L100.0100, L300.3900 #### [facility] [address] [place], [address] Comprehensive Metabolic Prof saul 05-21-2024 Albumin [Mass/Vol] 3.7 g/dL Normal 3.2-5.0 [facility] Comment on above: Performed By: #### L 505.5000, L501.9100, L500.4050, L100.0100, L300.3900 #### [facility] [address] [place], [address] Albumin/Globulin [Mass ratio] 1.1 {ratio} Normal 0.9-2.[address] [facility] Comment on above: Performed By: #### L 505.5000, L501.9100, L500.4050, L100.0100, L300.3900 #### [facility] [address] [place], [address] ALK P 96 U/L Normal 45-[address] [facility] Comment on above: Performed By: #### L 505.5000, L501.9100, L500.4050, L100.0100, L300.3900 #### [facility] [address] [place], [address] ALT [Catalytic activity/Vol] 84 U/L High 16-[address] [facility] Comment on above: Performed By: #### L 505.5000, L501.9100, L500.4050, L100.0100, L300.3900 #### [facility] [address] [place], [address] AST [Catalytic activity/Vol] 197 U/L High 15-[address] [facility] Comment on above: Performed By: #### L 505.5000, L501.9100, L500.4050, L100.0100, L300.3900 #### [facility] [address] [place], [address] Bilirubin [Mass/Vol] 0.90 mg/dL Normal 0.20-1.00 [facility] Comment on above: Result Comment: For patients on eltrombopag therapy, use of Dimension [place] TBIL is not recommended. Performed By: #### L 505.5000, L501.9100, L500.4050, L100.0100, L300.3900 #### [facility] [address] [place], [address] BUN/CRE 8.9 RATIO Low 10-[address] [facility] Comment on above: Performed By: #### L 505.5000, L501.9100, L500.4050, L100.0100, L300.3900 #### [facility] [address] [place], [address] CA,Total 8.6 mg/dL Normal 8.5-10.[address] [facility] Comment on above: Performed By: #### L 505.5000, L501.9100, L500.4050, L100.0100, L300.3900 #### [facility] [address] [place], [address] Chloride [Moles/Vol] 92 mmol/L Low 98-107 [facility] Comment on above: Performed By: #### L 505.5000, L501.9100, L500.4050, L100.0100, L300.3900 #### [facility] [address] [place], [address] CO2 [Moles/Vol] 17.0 mmol/L Low 21.0-32.[address] [facility] Comment on above: Performed By: #### L 505.5000, L501.9100, L500.4050, L100.0100, L300.3900 #### [facility] [address] [place], [address] Creatinine [Mass/Vol] 1.23 mg/dL Normal 0.70-1.30 [facility] Comment on above: Result Comment: The validity of the calculated GFR GFRAA in patients over 70 years has not been determined. Clinical correlation is essential. Performed By: #### L 505.5000, L501.9100, L500.4050, L100.0100, L300.3900 #### [facility] [address] [place], [address] ECRCL 62.65 ml/min Normal [facility] Comment on above: Performed By: #### L 505.5000, L501.9100, L500.4050, L100.0100, L300.3900 #### [facility] [address] [place], [address] EST GFR - AA 76 mL/min Normal >[address] [facility] Comment on above: Result Comment: Afri can Polish GFR Calc Performed By: #### L 505.5000, L501.9100, L500.4050, L100.0100, L300.3900 #### [facility] [address] [place], [address] GAP 18 High 5-[address] [facility] Comment on above: Performed By: #### L 505.5000, L501.9100, L500.4050, L100.0100, L300.3900 #### [facility] [address] [place], [address] GFR/1.73 sq M.predicted among non-blacks MDRD (S/P/Bld) [Vol rate/Area] 63 mL/min/{1.73_m2} Normal >[address] [facility] Comment on above: Result Comment: Non- GFR Calc Performed By: #### L 505.5000, L501.9100, L500.4050, L100.0100, L300.3900 #### [facility] [address] [place], [address] Globulin (S) [Mass/Vol] 3.4 g/dL Normal 2.2-4.[address] [facility] Comment on above: Performed By: #### L 505.5000, L501.9100, L500.4050, L100.0100, L300.3900 #### [facility] [address] [place], [address] Glucose [Mass/Vol] 96 mg/dL Normal 74-106 [facility] Comment on above: Performed By: #### L 505.5000, L501.9100, L500.4050, L100.0100, L300.3900 #### [facility] [address] [place], [address] Potassium [Moles/Vol] 4.1 mmol/L Normal 3.5-5.1 [facility] Comment on above: Performed By: #### L 505.5000, L501.9100, L500.4050, L100.0100, L300.3900 #### [facility] [address] [place], [address] Sodium [Moles/Vol] 127 mmol/L Low 136-145 [facility] Comment on above: Performed By: #### L 505.5000, L501.9100, L500.4050, L100.0100, L300.3900 #### [facility] [address] [place], [address] T PROT 7.1 g/dL Normal 6.4-8.[address] [facility] Comment on above: Performed By: #### L 505.5000, L501.9100, L500.4050, L100.0100, L300.3900 #### [facility] [address] [place], [address] Urea nitrogen [Mass/Vol] 11 mg/dL Normal 7-[address] [facility] Comment on above: Performed By: #### L 505.5000, L501.9100, L500.4050, L100.0100, L300.3900 #### [facility] [address] [place], [address] Emergency Department Summary on 05-21-2024 Emergency Department Summary [facility] Medical Records Department [address] [place] [address] Emergency Department Summary 05/21/24 MR#: [id number] Acct: [id number] Name: WOODY NI Rep #: [id number] : 1960 64 From: Stella Mackay DO PCP: Dr. Jani Quezada MD Status:REG ER Location: ED HPI History of Present Illness Chief Complaint: Substance Abuse Detail of Chief Complaint: Alcohol abuse and fall with head injury Informant: patient Narrative Narrative: Patient presents to the emergency department via EMS after he had fallen on his kitchen floor. Patient states that he was getting ready go to bed when he fell on the kitchen tile floor. Patient states he been drinking heavily since 6 AM and had about 24 beers. Patient has history of alcohol abuse. He complains of injury to his head and pain in his neck. He denies chest pain or abdomen pain. Denies illicit drug use. Patient wants detox from alcohol. [facility] Medical History Alcohol dependence Alcohol abuse Diabetes Rheumatoid arthritis Osteoporosis Kidney disease Pancreatitis Hepatitis BiPAP (biphasic positive airway pressure) dependence CPAP (continuous positive airway pressure) dependence Smoker COPD (chronic obstructive pulmonary disease) Migraines Seizures Diabetic neuropathy Muscle weakness Personal history of colonic polyps Deficiency of other specified B group vitamins Hyperkalemia Unilateral inguinal hernia PTSD (post-traumatic stress disorder) Abdominal pain Renal stone Slow transit constipation Dysphagia Thrombocytopenia Disorder of teeth and supporting structures Diverticulosis SHAYLA (obstructive sleep apnea) Enlarged prostate without urinary obstruction Insomnia Bilateral foot pain GERD (gastroesophageal reflux disease) Elevated LFTs Gait abnormality Knee pain Chronic pain Anxiety Asthma Glaucoma Localized edema Gout Biotin-dependent carboxylase deficiency, unspecified 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 Lumbago with sciatica HLD (hyperlipidemia) HTN (hypertension) Chronic hepatitis C Alcohol use disorder Diarrhea Nausea and vomiting Anemia Type 2 diabetes mellitus Depression Adrenogenital disorder, unspecified Chronic kidney disease, stage 3 Liver cirrhosis Emphysema lung History of syncope Gallbladder sludge Home Medications ???Medication ???Instructions ???Recorded ???Last Taken ???Type ondansetron 4 mg disintegrating 4 mg PO Q8H 11/11/22 04/02/24 History tablet hydroxyzine pamoate 25 mg capsule 50 mg (2 x 25 mg) PO BID #6 caps 04/08/24 04/02/24 Rx levothyroxine 75 mcg tablet 75 mcg PO DAILY #3 tabs 04/08/24 Unknown Rx (Synthroid) loratadine 10 mg tablet 10 mg PO DAILY #3 tabs 04/08/24 Unknown Rx losartan 100 mg tablet 100 mg PO DAILY #3 tabs 04/08/24 Unknown Rx metformin 500 mg tablet 500 mg PO BID #6 tabs 04/08/24 Unknown Rx mirtazapine 15 mg tablet 15 mg PO QHS #3 tabs 04/08/24 Unknown Rx nitroglycerin 0.4 mg sublingual 0.4 mg sublingual Q5M PRN chest 04/08/24 Unknown Rx tablet (Nitrostat) pain #3 tabs pantoprazole 40 mg tablet,delayed 40 mg PO DAILY #3 tabs 04/08/24 Unknown Rx release pravastatin 40 mg tablet 40 mg PO DAILY #3 tabs 04/08/24 Unknown Rx tizanidine 4 mg tablet 4 mg PO Q6H #12 tabs 04/08/24 Unknown Rx albuterol sulfate 90 mcg/actuation 2 puff inhalation Q6H PRN PRN 05/02/24 Unknown History aerosol inhaler shortness of breath or wheezing famotidine 20 mg tablet 20 mg PO QHS PRN PRN GERD 05/03/24 Unknown History olmesartan 40 mg tablet 40 mg PO DAILY 05/03/24 Unknown History potassium chloride 10 mEq 10 meq PO DAILY 05/03/24 Unknown History tablet,extended release sertraline 50 mg tablet 50 mg PO DAILY 05/03/24 Unknown History Allergy/AdvReac Type Severity Reaction Status Date / Time allopurinol Allergy Intermediate Other Verified 05/21/24 19:55 codeine Allergy Intermediate Other Verified 05/21/24 19:55 Penicillins Allergy Intermediate Other Verified 05/21/24 19:55 Family History Father Prostate cancer History of quadruple bypass Myocardial infarction Surgical History History of cholecystectomy H/O oral surgery Previous back surgery Social History Smoking Status: Never smoker alcohol intake: current alcohol intake frequency: 3 or more drinks per day Alcohol type: beer details: Averages 18 beers per day ROS ROS ED Review of Systems ROS Unobtainable: other Constitutional Constitutional ED: Reports lethargy; Denies chills, fever(s), sweats or weight loss Eyes Eyes: Denies blurry vision, change in vision or diplopia ENT ENT ED: Denies rhinorr (more content not included)... Normal [facility]P Exam - Hospitalist [facility] Medical Records Department [address] [place] [address] H P Exam - Hospitalist 05/21/24 2306 MR#: [id number] Acct: [id number] Name: WOODY NI Rep #: [id number] : 1960 64 From: Ruddy Galdamez DO PCP: Dr. Jani Quezada MD Status:ADM [place] [id number] HPI - General General Date of Admission: 05/21/24 Date of Service: 05/21/24 Chief Complaint: fall HPI Narrative WOODY NI, is a 64 M who presents after a fall. Patient was intoxicated and fell hitting his head. He underwent a workup including a CT of the cervical spine that showed degenerative changes and left paramedian disc herniation of C5-C6, negative head CT. Patient was admitted last month for alcohol withdrawal and went to acute alcohol rehab. Patient was on the 6 floor did not have an elevator and was too weak to be able to go up that so that was in [facility] presented to [facility] who discharged him to home. Patient has continued to drink since being at home. After his fall he is now requesting treatment for alcohol withdrawal. [facility] Medical History Alcohol dependence Alcohol abuse Diabetes Rheumatoid arthritis Osteoporosis Kidney disease Pancreatitis Hepatitis BiPAP (biphasic positive airway pressure) dependence CPAP (continuous positive airway pressure) dependence Smoker COPD (chronic obstructive pulmonary disease) Migraines Seizures Diabetic neuropathy Muscle weakness Personal history of colonic polyps Deficiency of other specified B group vitamins Hyperkalemia Unilateral inguinal hernia PTSD (post-traumatic stress disorder) Abdominal pain Renal stone Slow transit constipation Dysphagia Thrombocytopenia Disorder of teeth and supporting structures Diverticulosis SHAYLA (obstructive sleep apnea) Enlarged prostate without urinary obstruction Insomnia Bilateral foot pain GERD (gastroesophageal reflux disease) Elevated LFTs Gait abnormality Knee pain Chronic pain Anxiety Asthma Glaucoma Localized edema Gout Biotin-dependent carboxylase deficiency, unspecified 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 Lumbago with sciatica HLD (hyperlipidemia) HTN (hypertension) Chronic hepatitis C Alcohol use disorder Diarrhea Nausea and vomiting Anemia Type 2 diabetes mellitus Depression Adrenogenital disorder, unspecified Chronic kidney disease, stage 3 Liver cirrhosis Emphysema lung History of syncope Gallbladder sludge Home Medications ???Medication ???Instructions ???Recorded ???Last Taken ???Type ondansetron 4 mg disintegrating 4 mg PO Q8H 11/11/22 04/02/24 History tablet hydroxyzine pamoate 25 mg capsule 50 mg (2 x 25 mg) PO BID #6 caps 04/08/24 04/02/24 Rx levothyroxine 75 mcg tablet 75 mcg PO DAILY #3 tabs 04/08/24 Unknown Rx (Synthroid) loratadine 10 mg tablet 10 mg PO DAILY #3 tabs 04/08/24 Unknown Rx losartan 100 mg tablet 100 mg PO DAILY #3 tabs 04/08/24 Unknown Rx metformin 500 mg tablet 500 mg PO BID #6 tabs 04/08/24 Unknown Rx mirtazapine 15 mg tablet 15 mg PO QHS #3 tabs 04/08/24 Unknown Rx nitroglycerin 0.4 mg sublingual 0.4 mg sublingual Q5M PRN chest 04/08/24 Unknown Rx tablet (Nitrostat) pain #3 tabs pantoprazole 40 mg tablet,delayed 40 mg PO DAILY #3 tabs 04/08/24 Unknown Rx release pravastatin 40 mg tablet 40 mg PO DAILY #3 tabs 04/08/24 Unknown Rx tizanidine 4 mg tablet 4 mg PO Q6H #12 tabs 04/08/24 Unknown Rx albuterol sulfate 90 mcg/actuation 2 puff inhalation Q6H PRN PRN 05/02/24 Unknown History aerosol inhaler shortness of breath or wheezing famotidine 20 mg tablet 20 mg PO QHS PRN PRN GERD 05/03/24 Unknown History olmesartan 40 mg tablet 40 mg PO DAILY 05/03/24 Unknown History potassium chloride 10 mEq 10 meq PO DAILY 05/03/24 Unknown History tablet,extended release sertraline 50 mg tablet 50 mg PO DAILY 05/03/24 Unknown History Allergy/AdvReac Type Severity Reaction Status Date / Time allopurinol Allergy Intermediate Other Verified 05/21/24 19:55 codeine Allergy Intermediate Other Verified 05/21/24 19:55 Penicillins Allergy Intermediate Other Verified 05/21/24 19:55 Family History Father Prostate cancer History of quadruple bypass Myocardial infarction Surgical History History of cholecystectomy H/O oral surgery Previous back surgery Social History Smoking Status: Never smoker alcohol intake: current alcohol intake frequency: 3 or more drinks per day Alcohol type: beer details: Averages 18 beers per day ROS ROS Narrative Chronically weak and uses a walker at baseline. All review of systems were negative except as mentioned abov (more content not included)... Normal [facility] Spine Cervical without Contr ason 05-21-2024 Spine Cervical without Contras [facility] Imaging Services [address] [place] [address] Spine Cervical without Contras MR#: [id number] Acct: [id number] Name: WOODY NI Rep #: [id number] : 1960 M 64 From: Mundo Mackenzie DO PCP: Dr. Jani Quezada MD Status: REG ER Study: Spine Cervical without Contras Date of Exam: 0 05/21/24 Exam# [id number] Ordering Dr: Stella Mackay DO [id number] STUDY: CT CERVICAL SPINE WITHOUT CONTRAST REASON FOR EXAM: Male, 64 years old. fall RADIATION DOSAGE (If Supplied By Facility): CTDIvol = ( 19.89 ) mGy, DLP = ( 420.91 ) mGycm TECHNIQUE: High resolution transaxial imaging was performed without contrast material. Sagittal and coronal images were reconstructed. Individualized dose optimization techniques were used for this CT. COMPARISON: None FINDINGS: Normal craniovertebral junction. Normal anterior atlantoaxial articulation. Normal odontoid process. Normal cervical lordosis. Normal vertebral bodies and posterior osseous elements. C2-3: Normal endplates. Normal disc height and morphology. Normal central canal and intervertebral neuroforamina. C3-4: Normal endplates. Normal disc height with mild posterior annular bulge. Mild spurring protruding to the central canal. Uncovertebral spurring narrowing the intervertebral neuroforamina, right more than left. C4-5: Normal endplates. Normal disc height and morphology. Normal central canal. Uncovertebral spurring slightly narrowing the right intervertebral neural foramen. C5-6: Spurring at the endplates. Slightly narrowed disc height. There is a prominent left paramedian disc herniation with slight mass effect upon the cord Endplate spurring protruding to the central canal. Uncovertebral spurring narrowing the intervertebral neuroforamina, right more than left. C6-7: Normal endplates. Normal disc height and morphology. Normal central canal and intervertebral neuroforamina. C7-T1: Normal endplates. Normal disc height and morphology. Normal central canal and intervertebral neuroforamina. Normal visualized soft tissue structures. CT/Spine Cervical without Contras IMPRESSION: Degenerative vertebral changes of the cervical spine. Left paramedian disc herniation at C5-6. Electronically Signed: Mundo Mackenzie DO at 22:12 EDT Reading Location ID and State: [facility] / [place] Tel [phone], Service support , CC: Dr. Jani Quezada MD; Dr. Stella Mackay DO Senior Manufacturing Test Engineer: Signed Normal [facility] Urine Drug Screen (VISTA)on 05-21-2024 AMPHETAMINES Negative Normal <1000 ng/mL [facility] Comment on above: Performed By: #### L 501.5300, L501.5200 #### [facility] [address] [place], [address] BARBITIURATES Negative Normal < 200 ng/mL [facility] Comment on above: Performed By: #### L 501.5300, L501.5200 #### [facility] [address] [place], [place], [address] BENZODIAZIPINE Negative Normal < 200 ng/mL [facility] Comment on above: Performed By: #### L 501.5300, L501.5200 #### [facility] [address] [place], [address] COCAINE Negative Normal < 300 ng/mL [facility] Comment on above: Performed By: #### L 501.5300, L501.5200 #### [facility] [address] [place], [address] ECSTACY Negative Normal < 500 ng/mL [facility] Comment on above: Performed By: #### L 501.5300, L501.5200 #### [facility] [address] [place], [address] METHADONE Negative Normal < 300 ng/mL [facility] Comment on above: Performed By: #### L 501.5300, L501.5200 #### [facility] [address] [place], [address] OPIATES Negative Normal < 300 ng/mL [facility] Comment on above: Performed By: #### L 501.5300, L501.5200 #### [facility] [address] [place], [address] PCP Negative Normal < 25 ng/mL [facility] Comment on above: Performed By: #### L 501.5300, L501.5200 #### [facility] [address] [place], [address] THC Positive Abnormal < 50 ng/mL [facility] Comment on above: Performed By: #### L 501.5300, L501.5200 #### [facility] [address] [place], [address] VISTA UDS PH [address] [facility] Comment on above: Performed By: #### L 501.5300, L501.5200 #### [facility] [address] [place], [address] Emergency Department Summary on 05-03-2024 Emergency Department Summary [facility] Medical Records Department [address] [place] [address] Emergency Department Summary 05/03/24 MR#: [id number] Acct: [id number] Name: WOODY NI Rep #: [id number] : 1960 64 From: Daniel Knapp DO PCP: Dr. Jani Quezada MD Status:DEP ER Location: ED HPI History of Present Illness Chief Complaint: ETOH Intox Informant: patient and EMS Narrative Narrative: Patient is a 64-year-old male with longstanding history of alcohol abuse. He states he drinks roughly 20 beers a day. He states he has done this for almost 50 years. He was recently admitted to our facility for alcohol detox roughly 3 to 4 weeks ago. He states that he has had his father his friend his dog dying and his leave him in the last few months and this is contributed to worsening substance abuse. He states this evening he was drinking as he normally does and lost his balance and fell. He states he is "disabled" and could not get up. He states his sister found him and called EMS and therefore he was brought to the hospital for evaluation [facility] Medical History Alcohol dependence Alcohol abuse Diabetes Rheumatoid arthritis Osteoporosis Kidney disease Pancreatitis Hepatitis BiPAP (biphasic positive airway pressure) dependence CPAP (continuous positive airway pressure) dependence Smoker COPD (chronic obstructive pulmonary disease) Migraines Seizures Diabetic neuropathy Muscle weakness Personal history of colonic polyps Deficiency of other specified B group vitamins Hyperkalemia Unilateral inguinal hernia PTSD (post-traumatic stress disorder) Abdominal pain Renal stone Slow transit constipation Dysphagia Thrombocytopenia Disorder of teeth and supporting structures Diverticulosis SHAYLA (obstructive sleep apnea) Enlarged prostate without urinary obstruction Insomnia Bilateral foot pain GERD (gastroesophageal reflux disease) Elevated LFTs Gait abnormality Knee pain Chronic pain Anxiety Asthma Glaucoma Localized edema Gout Biotin-dependent carboxylase deficiency, unspecified 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 Lumbago with sciatica HLD (hyperlipidemia) HTN (hypertension) Chronic hepatitis C Alcohol use disorder Diarrhea Nausea and vomiting Anemia Type 2 diabetes mellitus Depression Adrenogenital disorder, unspecified Chronic kidney disease, stage 3 Liver cirrhosis Emphysema lung History of syncope Gallbladder sludge Home Medications ???Medication ???Instructions ???Recorded ???Last Taken ???Type alendronate 70 mg tablet (Fosamax) 70 mg PO MO 11/11/22 03/21/24 History ondansetron 4 mg disintegrating 4 mg PO Q8H 11/11/22 04/02/24 History tablet furosemide 20 mg tablet 20 mg PO DAILY #3 tabs 04/08/24 04/02/24 Rx hydroxyzine pamoate 25 mg capsule 50 mg (2 x 25 mg) PO BID #6 caps 04/08/24 04/02/24 Rx levothyroxine 75 mcg tablet 75 mcg PO DAILY #3 tabs 04/08/24 Unknown Rx (Synthroid) loratadine 10 mg tablet 10 mg PO DAILY #3 tabs 04/08/24 Unknown Rx losartan 100 mg tablet 100 mg PO DAILY #3 tabs 04/08/24 Unknown Rx metformin 500 mg tablet 500 mg PO BID #6 tabs 04/08/24 Unknown Rx mirtazapine 15 mg tablet 15 mg PO QHS #3 tabs 04/08/24 Unknown Rx nitroglycerin 0.4 mg sublingual 0.4 mg sublingual Q5M PRN chest 04/08/24 Unknown Rx tablet (Nitrostat) pain #3 tabs pantoprazole 40 mg tablet,delayed 40 mg PO DAILY #3 tabs 04/08/24 Unknown Rx release pravastatin 40 mg tablet 40 mg PO DAILY #3 tabs 04/08/24 Unknown Rx tizanidine 4 mg tablet 4 mg PO Q6H #12 tabs 04/08/24 Unknown Rx albuterol sulfate 90 mcg/actuation 2 puff inhalation Q6H PRN PRN 05/02/24 Unknown History aerosol inhaler shortness of breath or wheezing famotidine 20 mg tablet 20 mg PO QHS PRN PRN GERD 05/03/24 Unknown History olmesartan 40 mg tablet 40 mg PO DAILY 05/03/24 Unknown History potassium chloride 10 mEq 10 meq PO DAILY 05/03/24 Unknown History tablet,extended release sertraline 50 mg tablet 50 mg PO DAILY 05/03/24 Unknown History Allergy/AdvReac Type Severity Reaction Status Date / Time allopurinol Allergy Intermediate Other Verified 05/02/24 23:01 codeine Allergy Intermediate Other Verified 05/02/24 23:01 Penicillins Allergy Intermediate Other Verified 05/02/24 23:01 Family History Father Prostate cancer History of quadruple bypass Myocardial infarction Surgical History History of cholecystectomy H/O oral surgery Previous back surgery Social History Smoking Status: Never smoker alcohol intake: current alcohol intake frequency: 3 or more drinks per day Alcohol type: beer (more content not included)... Normal [facility] Urine Drug Screen (VISTA)on 05-03-2024 AMPHETAMINES Negative Normal <1000 ng/mL [facility] Comment on above: Performed By: #### L 500.2500, L100.0100, L501.5200 #### [facility] [address] [facility] [address] BARBITIURATES Positive Abnormal < 200 ng/mL [facility] Comment on above: Performed By: #### L 500.2500, L100.0100, L501.5200 #### [facility] [address] [facility] [address] BENZODIAZIPINE Negative Normal < 200 ng/mL [facility] Comment on above: Performed By: #### L 500.2500, L100.0100, L501.5200 #### [facility] [address] [facility] [address] COCAINE Negative Normal < 300 ng/mL [facility] Comment on above: Performed By: #### L 500.2500, L100.0100, L501.5200 #### [facility] [address] [place], [address] ECSTACY Negative Normal < 500 ng/mL [facility] Comment on above: Performed By: #### L 500.2500, L100.0100, L501.5200 #### [facility] [address] [facility] [address] METHADONE Negative Normal < 300 ng/mL [facility] Comment on above: Performed By: #### L 500.2500, L100.0100, L501.5200 #### [facility] [address] [facility] [address] OPIATES Negative Normal < 300 ng/mL [facility] Comment on above: Performed By: #### L 500.2500, L100.0100, L501.5200 #### [facility] [address] [place], [address] PCP Negative Normal < 25 ng/mL [facility] Comment on above: Performed By: #### L 500.2500, L100.0100, L501.5200 #### [facility] [address] [place], [address] THC Positive Abnormal < 50 ng/mL [facility] Comment on above: Performed By: #### L 500.2500, L100.0100, L501.5200 #### [facility] [address] [place], [address] VISTA UDS PH [address] [facility] Comment on above: Performed By: #### L 500.2500, L100.0100, L501.5200 #### [facility] [address] [place], [address] Alcohol, Blood (Medical)-Ser umon 05-02-2024 SERUM ETOH 347.0 mg/dL Invalid Interpretation Code [facility] Comment on above: Result Comment: Crit ical Result(s) Called at: 23:58:38 05/02/2024 by: Moshe Werner. to [facility] [place]. Results read back by same. The serum:whole blood ethanol ratio is approximately 1.14 and varies slightly with hematocrit. Medical Alcohol reference interval and critical value in non-tolerant individuals; 50 - 100 Impairment 100 Intoxication 100 - 250 Severe Poisoning 250 - 400 Deep/possible fatal coma Performed By: #### L 500.2500, L100.0100, L501.5200 #### [facility] [address] [place], [address] Basic Metabolic Profile (BMP )on 05-02-2024 BUN/CRE 12.7 RATIO Normal 10-[address] [facility] Comment on above: Performed By: #### L 500.2500, L100.0100, L501.5200 #### [facility] [address] [place], [address] CA,Total 8.7 mg/dL Normal 8.5-10.[address] [facility] Comment on above: Performed By: #### L 500.2500, L100.0100, L501.5200 #### [facility] [address] [place], [address] Chloride [Moles/Vol] 100 mmol/L Normal 98-107 [facility] Comment on above: Performed By: #### L 500.2500, L100.0100, L501.5200 #### [facility] [address] [place], [address] CO2 [Moles/Vol] 16.0 mmol/L Low 21.0-32.[address] [facility] Comment on above: Performed By: #### L 500.2500, L100.0100, L501.5200 #### [facility] [address] [place], [address] Creatinine [Mass/Vol] 0.95 mg/dL Normal 0.70-1.30 [facility] Comment on above: Result Comment: The validity of the calculated GFR GFRAA in patients over 70 years has not been determined. Clinical correlation is essential. Performed By: #### L 500.2500, L100.0100, L501.5200 #### [facility] [address] [place], [address] ECRCL 81.11 ml/min Normal [facility] Comment on above: Performed By: #### L 500.2500, L100.0100, L501.5200 #### [facility] [address] [place], [address] EST GFR - AA 103 mL/min Normal >[address] [facility] Comment on above: Result Comment: Afri can Polish GFR Calc Performed By: #### L 500.2500, L100.0100, L501.5200 #### [facility] [address] [place], [address] GAP 16 High 5-[address] [facility] Comment on above: Performed By: #### L 500.2500, L100.0100, L501.5200 #### [facility] [address] [place], [address] GFR/1.73 sq M.predicted among non-blacks MDRD (S/P/Bld) [Vol rate/Area] 85 mL/min/{1.73_m2} Normal >[address] [facility] Comment on above: Result Comment: Non- GFR Calc Performed By: #### L 500.2500, L100.0100, L501.5200 #### [facility] [address] [place], [address] Glucose [Mass/Vol] 88 mg/dL Normal 74-106 [facility] Comment on above: Performed By: #### L 500.2500, L100.0100, L501.5200 #### [facility] [address] [place], [address] Potassium [Moles/Vol] 3.3 mmol/L Low 3.5-5.1 [facility] Comment on above: Performed By: #### L 500.2500, L100.0100, L501.5200 #### [facility] [address] [place], [address] Sodium [Moles/Vol] 132 mmol/L Low 136-145 [facility] Comment on above: Performed By: #### L 500.2500, L100.0100, L501.5200 #### [facility] [address] [place], [address] Urea nitrogen [Mass/Vol] 12 mg/dL Normal 7-[address] [facility] Comment on above: Performed By: #### L 500.2500, L100.0100, L501.5200 #### [facility] [address] [place], [address] Brain/Head without Contrasto n 05-02-2024 Brain/Head without Contrast [facility] Imaging Services [address] [place] [address] Brain/Head without Contrast MR#: [id number] Acct: [id number] Name: WOODY NI Rep #: [id number] : 1960 M 64 From: Beto Urena MD PCP: Dr. Jani Quezada MD Status: REG ER Study: Brain/Head without Contrast Date of Exam: 04/18 03/11 Exam# [id number] Ordering Dr: Daniel Knapp DO [id number] INDICATION: head injury EXAMINATION: CT BRAIN - CT Head or Brain W/O Contrast Injection TECHNIQUE: Multiple axial images were obtained of the head without intravenous contrast. A radiation dose optimization technique was used for this scan. IV Contrast dosage and agent: None. 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 No intra- or extra-axial hemorrhage. No evidence of acute infarct. No intracranial mass or mass effect. Mild periventricular and subcortical white matter hypodense chronic small vessel white matter ischemic change. There is preservation of the chaudhry/white matter interface. Posterior fossa structures are unremarkable. Mild carotid atherosclerosis. CSF SPACES: Cerebral volume appropriate for age. No hydrocephalus. Basal cisterns are patent. CALVARIUM, SKULL BASE, PARANASAL SINUSES AND MASTOID AIR CELLS: No acute osseous finding. Paransasal sinuses are clear. Mastoid air cells are clear. ORBITS: Both globes, extraocular muscles, optic nerves and retrobulbar fat appear unremarkable. ASPECTS Score for Acute Strokes: 10 CT/Brain/Head without Contrast IMPRESSION: No CT evidence of acute intracranial hemorrhage or injury. 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 Electronically Signed: Beto Urena MD at 0:15 EDT , CC: Dr. Jani Quezada MD; Daniel Knapp DO Senior Manufacturing Test Engineer: Signed Normal [facility] CBC W/Diff, Automatedon 04-18 Absolute Lymph 2.93 X10 3/uL Normal 0.83-4.[address] [facility] Comment on above: Performed By: #### L 500.2500, L100.0100, L501.5200 #### [facility] [address] [place], [address] Absolute Neut 4.2 X10 3/uL Normal 2.0-7.[address] [facility] Comment on above: Performed By: #### L 500.2500, L100.0100, L501.5200 #### [facility] [address] [place], [address] Basophils/100 WBC (Bld) 0.6 % Normal 0-[address] [facility] Comment on above: Performed By: #### L 500.2500, L100.0100, L501.5200 #### [facility] [address] [place], [address] Eosinophils/100 WBC (Bld) 2.6 % Normal 0-[address] [facility] Comment on above: Performed By: #### L 500.2500, L100.0100, L501.5200 #### [facility] [address] [place], [address] Erythrocyte distribution width (RBC) [Ratio] 14.0 % Normal 11.6-14.[address] [facility] Comment on above: Performed By: #### L 500.2500, L100.0100, L501.5200 #### [facility] [address] [place], [address] Hematocrit (Bld) [Volume fraction] 34.9 % Low 40-[address] [facility] Comment on above: Performed By: #### L 500.2500, L100.0100, L501.5200 #### [facility] [address] [place], [address] Hemoglobin (Bld) [Mass/Vol] 12.0 g/dL Low 13.0-16.[address] [facility] Comment on above: Performed By: #### L 500.2500, L100.0100, L501.5200 #### [facility] [address] [place], [address] IG% 0.900 Normal 0.0-0.[address] [facility] Comment on above: Result Comment: IG% - Immature Granulocytes (promyelocytes, myelocytes and metamyelocytes) > 1% indicates that a LEFT SHIFT is Present. Performed By: #### L 500.2500, L100.0100, L501.5200 #### [facility] [address] [place], [address] Lymphocytes/100 WBC (Bld) 36.9 % Normal 19-[address] [facility] Comment on above: Performed By: #### L 500.2500, L100.0100, L501.5200 #### [facility] [address] [place], [address] MCH (RBC) [Entitic mass] 30.0 pg Normal 27.0-32.[address] [facility] Comment on above: Performed By: #### L 500.2500, L100.0100, L501.5200 #### [facility] [address] [place], [address] MCHC (RBC) [Mass/Vol] 34.4 g/dL Normal 32-36 [facility] Comment on above: Performed By: #### L 500.2500, L100.0100, L501.5200 #### [facility] [address] [place], [address] MCV (RBC) [Entitic vol] 87.3 fL Normal 80-[address] [facility] Comment on above: Performed By: #### L 500.2500, L100.0100, L501.5200 #### [facility] [address] [place], [address] Monocytes/100 WBC (Bld) 6.1 % Normal 0-[address] [facility] Comment on above: Performed By: #### L 500.2500, L100.0100, L501.5200 #### [facility] [address] [place], [address] Neutrophils/100 WBC (Bld) 52.9 % Normal 47-[address] [facility] Comment on above: Performed By: #### L 500.2500, L100.0100, L501.5200 #### [facility] [address] [place], [address] Nucleated RBC (Bld) [#/Vol] 0 10*3/uL Normal 0-[address] [facility] Comment on above: Performed By: #### L 500.2500, L100.0100, L501.5200 #### [facility] [address] [place], [address] Platelet mean volume (Bld) [Entitic vol] 8.6 fL Normal 6.2-12.[address] [facility] Comment on above: Performed By: #### L 500.2500, L100.0100, L501.5200 #### [facility] [address] [place], [address] Platelets (Bld) [#/Vol] 185 10*3/uL Normal 150-[address] [facility] Comment on above: Performed By: #### L 500.2500, L100.0100, L501.5200 #### [facility] [address] [place], [address] RBC (Bld) [#/Vol] 4.00 10*6/uL Low 4.6-6.2 [facility] Comment on above: Performed By: #### L 500.2500, L100.0100, L501.5200 #### [facility] [address] [place], [address] RDW SD 45.0 fl High 35.1-43.[address] [facility] Comment on above: Performed By: #### L 500.2500, L100.0100, L501.5200 #### [facility] [address] [place], [address] WBC (Bld) [#/Vol] 7.9 10*3/uL Normal 4.4-11.0 [facility] Comment on above: Performed By: #### L 500.2500, L100.0100, L501.5200 #### [facility] [address] [place], [address] Liver Profileon 05-02-2024 Albumin [Mass/Vol] 3.8 g/dL Normal 3.2-5.0 [facility] Comment on above: Performed By: #### L 500.2500, L100.0100, L501.5200 #### [facility] [address] [place], [address] ALK P 49 U/L Normal 45-[address] [facility] Comment on above: Performed By: #### L 500.2500, L100.0100, L501.5200 #### [facility] [address] [place], [address] ALT [Catalytic activity/Vol] 29 U/L Normal 16-[address] [facility] Comment on above: Performed By: #### L 500.2500, L100.0100, L501.5200 #### [facility] [address] [place], [address] AST [Catalytic activity/Vol] 29 U/L Normal 15-[address] [facility] Comment on above: Performed By: #### L 500.2500, L100.0100, L501.5200 #### [facility] [address] [place], [address] Bilirubin [Mass/Vol] 0.30 mg/dL Normal 0.20-1.00 [facility] Comment on above: Result Comment: For patients on eltrombopag therapy, use of Dimension [place] TBIL is not recommended. Performed By: #### L 500.2500, L100.0100, L501.5200 #### [facility] [address] [place], [address] Bilirubin.direct [Mass/Vol] 0.14 mg/dL Normal 0.00-0.[address] [facility] Comment on above: Performed By: #### L 500.2500, L100.0100, L501.5200 #### [facility] [address] [place], [address] Globulin (S) [Mass/Vol] 3.6 g/dL Normal 2.2-4.[address] [facility] Comment on above: Performed By: #### L 500.2500, L100.0100, L501.5200 #### [facility] [address] [place], [address] T PROT 7.4 g/dL Normal 6.4-8.[address] [facility] Comment on above: Performed By: #### L 500.2500, L100.0100, L501.5200 #### [facility] [address] [place], [address] Pelvis 1 or 2 Viewson 2023 Pelvis 1 or 2 Views [facility] Imaging Services [address] [place] [address] Pelvis 1 or 2 Views MR#: [id number] Acct: [id number] Name: WOODY NI Rep #: [id number] : 1960 M 64 From: Beot Urena MD PCP: Dr. Jani Quezada MD Status: REG ER Study: Pelvis 1 or 2 Views Date of Exam: 05/02/24 Exam# [id number] Ordering Dr: Daniel Knapp DO [id number] INDICATION: fall EXAMINATION/TECHNIQUE: X-RAY - XR Pelvis 1 or 2 Views: AP pelvis COMPARISON: None. FINDINGS: PELVIC BONES: No displaced fracture, destructive or sclerotic lesions. Note that overlapping bowel shadows may however obscure fine detail. Sacroiliac joints are unremarkable with mild degenerative change. No widening of the pubic symphysis. Lower lumbar bridging osteophytes. HIPS: Normal bilateral hip alignment with minimal joint space narrowing and osteophyte formation. No visible femoral neck fracture on AP view SOFT TISSUES: No soft tissue swelling or gas. RAD/Pelvis 1 or 2 Views IMPRESSION: No visible fracture. Electronically Signed: Beto Urena MD at 0:10 EDT , CC: Dr. Jani Quezada MD; Daniel Knapp DO Senior Manufacturing Test Engineer: Signed Normal [facility] Spine Cervical without Contr ason 05-02-2024 Spine Cervical without Contras [facility] Imaging Services [address] [place], [place] [id number] Spine Cervical without Contras MR#: [id number] Acct: [id number] Name: WOODY NI Rep #: [id number] : 1960 M 64 From: Beto Urena MD PCP: Dr. Jani Quezada MD Status: REG ER Study: Spine Cervical without Contras Date of Exam: 0 05/02/24 Exam# [id number] Ordering Dr: Daniel Knapp DO [id number] INDICATION: fall EXAMINATION: CT CERVICAL SPINE - CT Spine Cervical W/O Contrast Injection TECHNIQUE: Helically acquired images were obtained of the cervical spine. 2D reformatted images were reviewed. A radiation dose optimization technique was used for this scan. IV Contrast dosage and agent: None. COMPARISON: CT head on same day. FINDINGS: VERTEBRAE: No fracture or compression deformity. No discrete lytic or blastic abnormality. Normal alignment. Normal craniocervical junction and cervicothoracic junction with mild degenerative change. DISCS and SPINAL CANAL: Mid cervical disc height loss most prominent C5-C6 with small posterior disc osteophyte complexes most prominent C3-C4 and C5-C6 with moderate spinal canal stenosis and moderate to severe neural foraminal stenosis. No critical stenosis. NECK SOFT TISSUES: No prevertebral soft tissue swelling. There is no cervical adenopathy. Bilateral carotid atherosclerosis. LUNG APICES: Clear. CT/Spine Cervical without Contras IMPRESSION: No evidence of acute cervical spinal fracture. Spondylosis as above. Electronically Signed: Beto Urena MD at 0:18 EDT Reading Location ID and State: [facility] / [place] Tel , Service support , CC: Dr. Jani Quezada MD; Daniel Knapp DO Senior Manufacturing Test Engineer: Signed Normal [facility] CARECOORDon 05-01-2024 CARECOAVERY Normal [facility] CARECOORDon 04-30-2024 CARECOAVERY Normal [facility] IDNon 04-30-2024 IDN Normal [facility] Laboratory - Chemistry and C hemistry - challengeon 04-30-2024 Glucose [Mass/Vol] 134 mg/dL High 70 - 100 mg/dL [facility] Glucose [Mass/Vol] 137 mg/dL High 70 - 100 mg/dL [facility] No Panel Informationon 04-30 Interpretation and review of laboratory results Abnormal [facility] Performed by: [facility], [address] [facility] [address] CLIA ID: [id number] [facility] Interpretation and review of laboratory results Abnormal [facility] Performed by: [facility], [address] [facility] [address] CLIA ID: [id number] [facility] Nursing Noteon 04-30-2024 Nursing Note AVS medication list and follow up appointment reviewed with pt. Pt medications sent to [facility] per his request. Pt states understanding. . [facility] [id number] 04-29-2024 [id number] Pt refusing home car e services. PACC signing off. Normal [facility] [id number] Tool 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 IF denied SNF placement - will follow for discharge plan for possibly home with home care. [facility] CARECOORDon 04-29-2024 CARECOAVERY Normal [facility] CAREKYORD Normal [facility] CARECOAVERY Normal [facility] Normal [facility] Laboratory - Chemistry and C hemistry - challengeon 04-29-2024 Glucose [Mass/Vol] 135 mg/dL High 70 - 100 mg/dL [facility] Glucose [Mass/Vol] 115 mg/dL High 70 - 100 mg/dL [facility] Glucose [Mass/Vol] 130 mg/dL High 70 - 100 mg/dL [facility] Glucose [Mass/Vol] 103 mg/dL High 70 - 100 mg/dL [facility] No Panel Informationon 04-29 Interpretation and review of laboratory results Abnormal [facility] Performed by: [facility], [address] [facility] [address] CLIA ID: [id number] [facility] Interpretation and review of laboratory results Abnormal [facility] Performed by: [facility], [address] [place], [facility] [address] CLIA ID: [id number] [facility] Interpretation and review of laboratory results Abnormal [facility] Performed by: [facility], [address], [facility] [address] CLIA ID: [id number] [facility] Interpretation and review of laboratory results Abnormal [facility] Performed by: [facility], [address], [facility] [address] CLIA ID: [id number] [facility] Progress Noteon 04-29-2024 Progress Note Normal [facility] Progress Note Normal [facility] Progress Note Normal [facility] Progress Note Nutrition update completed. Chart reviewed. Patient continues as a level 1 for nutrition care. Normal [facility] Progress Note Normal [facility] CARECOORDon 04-28-2024 [place] Reviewed careport an d continue to await auth. . Normal [facility] [place] Normal [facility] Laboratory - Chemistry and C hemistry - challengeon 04-28-2024 Glucose [Mass/Vol] 106 mg/dL High 70 - 100 mg/dL [facility] Glucose [Mass/Vol] 78 mg/dL 70 - 100 mg/dL [facility] Glucose [Mass/Vol] 96 mg/dL 70 - 100 mg/dL [facility] No Panel Informationon 04-28 Interpretation and review of laboratory results Abnormal [facility] Performed by: [facility], [address], [facility] [address] CLIA ID: [id number] [facility] Interpretation and review of laboratory results Normal [facility] Performed by: [facility], [address], [facility] [address] CLIA ID: [id number] [facility] Interpretation and review of laboratory results Normal [facility] Performed by: [facility], [address], [facility] [address] CLIA ID: [id number] [facility] Progress Noteon 04-28-2024 Progress Note Normal [facility] Progress Note Normal [facility] Progress Note Normal [facility] Progress Note Normal [facility] Progress Note Normal [facility] CARECOORDon 04-27-2024 [place] Normal [facility] [place] Normal [facility] [place] Normal [facility] [place] Sent updated notes lulu Rhodes via Careport per TCC request. Await review and response regarding ability to accept. TCC notified. Normal [facility] CBC W Auto Differential pane l (Bld)on 04-27-2024 Basophils (Bld) [#/Vol] 0.0 10*3/uL 0.0 - 0.2 10*3/uL [facility] Basophils/100 WBC (Bld) 0.6 % 0.0 - 2.0 % [facility] Eosinophils (Bld) [#/Vol] 0.3 10*3/uL 0.0 - 0.5 10*3/uL [facility] Eosinophils/100 WBC (Bld) 4.7 % 0.0 - 6.0 % [facility] Erythrocyte distribution width (RBC) [Ratio] 13.7 % 11.5 - 15.0 % [facility] Hematocrit (Bld) [Volume fraction] 34.2 % Low 40.0 - 52.0 % [facility] Hemoglobin (Bld) [Mass/Vol] 11.2 g/dL Low 13.0 - 18.0 g/dL [facility] Immature granulocytes (Bld) [#/Vol] 0.1 10*3/uL High NINF - 0.1 10*3/uL [facility] Immature granulocytes/100 WBC (Bld) 0.8 % 0.0 - 2.0 % [facility] Interpretation and review of laboratory results Abnormal [facility] IPF 3 [facility] Lymphocytes (Bld) [#/Vol] 2.5 10*3/uL 1.0 - 4.3 10*3/uL [facility] Lymphocytes/100 WBC (Bld) 38.4 % 15.0 - 45.0 % [facility] MCH (RBC) [Entitic mass] 30.4 pg 26.0 - 34.0 pg [facility] MCHC (RBC) [Mass/Vol] 32.7 % 30.5 - 36.0 % [facility] MCV (RBC) [Entitic vol] 92.9 fL 77.0 - 99.0 fL [facility] Monocytes (Bld) [#/Vol] 0.6 10*3/uL 0.0 - 0.9 10*3/uL [facility] Monocytes/100 WBC (Bld) 8.9 % 5.0 - 13.0 % [facility] Neutrophils (Bld) [#/Vol] 3.0 10*3/uL 1.8 - 7.5 10*3/uL [facility] Neutrophils/100 WBC (Bld) 46.6 % 38.0 - 82.0 % [facility] Nucleated RBC/100 WBC (Bld) [Ratio] 0.0 % [facility] Platelet mean volume (Bld) [Entitic vol] 9.7 fL 9.0 - 12.7 fL [facility] Platelets (Bld) [#/Vol] 105 10*3/uL Low 140 - 440 10*3/uL [facility] RBC (Bld) [#/Vol] 3.68 10*6/uL Low 4.40 - 5.9 0 10*6/uL [facility] WBC (Bld) [#/Vol] 6.4 10*3/uL 3.6 - 10.7 10*3/uL [facility] CBC WITH AUTO DIFFERENTIALon 04-27-2024 Basophils (Bld) [#/Vol] 0.0 10*3/uL Normal 0.0-0.2 [facility] Comment on above: Performed By: #### L [id number] ####Flame Channeler: TRESSA SANTIZO ([id number])[facility] [place] [address] Basophils/100 WBC (Bld) 0.6 % Normal 0.0-2.0 [facility] Comment on above: Performed By: #### L [id number] ####Flame Channeler: TRESSA SANTIZO ([phone])[facility] ([facility])[address] Eosinophils (Bld) [#/Vol] 0.3 10*3/uL Normal 0.0-0.5 [facility] Comment on above: Performed By: #### L [id number] ####Flame Channeler: TRESSA SANTIZO ([id number])[facility] ([facility])[address] Eosinophils/100 WBC (Bld) 4.7 % Normal 0.0-6.0 [facility] Comment on above: Performed By: #### L [id number] ####Flame Channeler: TRESSA SANTIZO ([id number])[facility])[address] Erythrocyte distribution width (RBC) [Ratio] 13.7 % Normal 11.5-15.0 [facility] Comment on above: Performed By: #### L [id number] ####Flame Channeler: TRESSA SANTIZO ([id number])[facility] ([facility])[address] Hematocrit (Bld) [Volume fraction] 34.2 % Low 40.0-52.0 [facility] Comment on above: Performed By: #### L [id number] ####Flame Channeler: TRESSA SANTIZO ([phone])[facility] ([facility])[address] [place] [address] Hemoglobin (Bld) [Mass/Vol] 11.2 g/dL Low 13.0-18.0 [facility] Comment on above: Performed By: #### L [id number] ####Flame Channeler: TRESSA SANTIZO ([phone])[facility] ([facility])[address] IMMATURE GRANS % 0.8 % Normal 0.0-2.0 [facility] Comment on above: Performed By: #### L [id number] ####Flame Channeler: TRESSA SANTIZO ([phone])[facility] ([facility])[address] IMMATURE GRANS ABSOLUTE 0.1 10*3/uL High <0.1 [facility] Comment on above: Performed By: #### L [id number] ####Flame Channeler: TRESSA SANTIZO ([phone])[facility] ([facility])[address] IPF 3 Normal [facility] Comment on above: Performed By: #### L [id number] ####Flame Channeler: TRESSA SANTIZO ([id number])[facility] ([facility])[address] Lymphocytes (Bld) [#/Vol] 2.5 10*3/uL Normal 1.0-4.3 [facility] Comment on above: Performed By: #### L [id number] ####Flame Channeler: TRESSA SANTIZO ([phone])[facility] ([facility])[address] Lymphocytes/100 WBC (Bld) 38.4 % Normal 15.0-45.0 [facility] Comment on above: Performed By: #### L [id number] ####Flame Channeler: TRESSA SANTIZO ([id number])[facility] ([facility])[address] MCH (RBC) [Entitic mass] 30.4 pg Normal 26.0-34.0 [facility] Comment on above: Performed By: #### L [id number] ####Flame Channeler: TRESSA SANTIZO ([phone])[facility] ([facility])[address] [place] [address] MCHC 32.7 % Normal 30.5-36.0 [facility] Comment on above: Performed By: #### L [id number] ####Flame Channeler: TRESSA SANTIZO ([id number])[facility] ([facility])[address] MCV (RBC) [Entitic vol] 92.9 fL Normal 77.0-99.0 [facility] Comment on above: Performed By: #### L [id number] ####Flame Channeler: TRESSA SANTIZO ([phone])[facility] ([facility])[address] Monocytes (Bld) [#/Vol] 0.6 10*3/uL Normal 0.0-0.9 [facility] Comment on above: Performed By: #### L [id number] ####Flame Channeler: TRESSA SANTIZO ([phone])[facility] ([facility])[address] Monocytes/100 WBC (Bld) 8.9 % Normal 5.0-13.0 [facility] Comment on above: Performed By: #### L [id number] ####Flame Channeler: TRESSA SANTIZO ([phone])[facility] ([facility])[address] NEUTROPHILS ABSOLUTE 3.0 10*3/uL Normal 1.8-7.5 [facility] Comment on above: Performed By: #### L [id number] ####Flame Channeler: TRESSA SANTIZO ([id number])[facility] ([facility])[address] Neutrophils/100 WBC (Bld) 46.6 % Normal 38.0-82.0 [facility] Comment on above: Performed By: #### L [id number] ####Flame Channeler: TRESSA SANTIZO ([id number])[facility] ([facility])[address] NRBC 0.0 /100 WBCs Normal 0.0-2.0 [facility] Comment on above: Performed By: #### L [id number] ####Flame Channeler: TRESSA SANTIZO ([id number])[facility] ([facility])[address] Platelet mean volume (Bld) [Entitic vol] 9.7 fL Normal 9.0-12.7 [facility] Comment on above: Performed By: #### L [id number] ####Flame Channeler: TRESSA SANTIZO ([phone])[facility] ([facility])[address] Platelets (Bld) [#/Vol] 105 10*3/uL Low 140-440 [facility] Comment on above: Performed By: #### L [id number] ####Flame Channeler: TRESSA SANTIZO ([id number])[facility] ([facility])[address] RBC (Bld) [#/Vol] 3.68 10*6/uL Low 4.40-5.90 [facility] Comment on above: Performed By: #### L [id number] ####Flame Channeler: TRESSA SANTIZO ([id number])[facility] ([facility])[address] WBC (Bld) [#/Vol] 6.4 10*3/uL Normal 3.6-10.7 [facility] Comment on above: Performed By: #### L [id number] ####Flame Channeler: TRESSA SANTIZO ([id number])[facility] ([facility])[address] COMPREHENSIVE METABOLIC PANE Peter 04-27-2024 Albumin [Mass/Vol] 3.9 g/dL Normal 3.5-5.0 [facility] Comment on above: Performed By: #### L [id number] ####Flame Channeler: TRESSA SANTIZO ([id number])[facility] ([facility])[address] ALP [Catalytic activity/Vol] 45 U/L Normal 38-126 [facility] Comment on above: Performed By: #### L AB17 ####Flame Channeler: TRESSA SANTIZO ([id number])[facility] ([facility])[address] ALT [Catalytic activity/Vol] 19 U/L Normal 0-49 [facility] Comment on above: Performed By: #### L AB17 ####Flame Channeler: TRESSA SANTIZO ([id number])[facility] ([facility])[address] Anion gap [Moles/Vol] 7 mmol/L Normal 3-13 [facility] Comment on above: Performed By: #### L AB17 ####Flame Channeler: TRESSA SANTIZO ([id number])[facility] ([facility])[address] AST [Catalytic activity/Vol] 29 U/L Normal 15-46 [facility] Comment on above: Performed By: #### L AB17 ####Flame Channeler: TRESSA SANTIZO ([id number])[facility])[address] Bilirubin [Mass/Vol] 0.4 mg/dL Normal 0.2-1.3 [facility] Comment on above: Performed By: #### L AB17 ####Flame Channeler: TRESSA SANTIZO ([id number])[facility] ([facility])[address] Calcium [Mass/Vol] 9.2 mg/dL Normal 8.4-10.4 [facility] Comment on above: Performed By: #### L AB17 ####Flame Channeler: TRESSA SANTIZO ([id number])[facility])[address] [place] [address] [place] Chloride [Moles/Vol] 100 mmol/L Normal 98-107 [facility] Comment on above: Performed By: #### L AB17 ####Flame Channeler: TRESSA SANTIZO ([id number])[facility] ([facility])[address] CO2 [Moles/Vol] 25 mmol/L Normal 22-30 [facility] Comment on above: Performed By: #### L AB17 ####Flame Channeler: TRESSA SANTIZO ([id number])[facility] ([facility])[address] Creatinine [Mass/Vol] 0.85 mg/dL Normal 0.66-1.25 [facility] Comment on above: Performed By: #### L AB17 ####Flame Channeler: TRESSA SANTIZO ([phone])[facility] ([facility])[address] GLOMERULAR FILTRATION RATE ML/MIN/1.73 SQ M.PREDICTED >90.0 Normal >60.0 [facility] Comment on above: Result Comment: Calc ulation based on the Chronic Kidney Disease Epidemiology Collaboration (CKD-EPI) equation refit without adjustment for raceORDER COMMENTS:Slightly Hemolyzed Performed By: #### L AB17 ####Flame Channeler: TRESSA SANTIZO ([id number])[facility] ([facility])[address] Glucose [Mass/Vol] 73 mg/dL Normal 70-100 [facility] Comment on above: Performed By: #### L AB17 ####Flame Channeler: TRESSA SANTIZO ([id number])[facility] ([facility])[address] [place] [address] [place] Potassium [Moles/Vol] 4.1 mmol/L Normal 3.5-5.1 [facility] Comment on above: Performed By: #### L AB17 ####Flame Channeler: TRESSA SANTIZO ([id number])[facility] ([facility])[address] [place] [address] [place] Protein [Mass/Vol] 6.7 g/dL Normal 6.3-8.2 [facility] Comment on above: Performed By: #### L AB17 ####Flame Channeler: TRESSA SANTIZO ([id number])[facility] ([facility])[address] [place] [address] [place] Sodium [Moles/Vol] 132 mmol/L Low 135-145 [facility] Comment on above: Performed By: #### L AB17 ####Flame Channeler: TRESSA SANTIZO ([id number])[facility] ([facility])[address] Urea nitrogen [Mass/Vol] 9 mg/dL Normal 9-20 [facility] Comment on above: Performed By: #### L AB17 ####Flame Channeler: TRESSA SANTIZO ([id number])[facility] ([facility])[address] Comprehensive metabolic 1998 panelon 04-27-2024 Albumin [Mass/Vol] 3.9 g/dL 3.5 - 5.0 g/dL [facility] ALP [Catalytic activity/Vol] 45 U/L 38 - 126 U/L [facility] ALT [Catalytic activity/Vol] 19 U/L 0 - 49 U/L [facility] Anion gap [Moles/Vol] 7 mmol/L 3 - 13 mmol/L [facility] AST [Catalytic activity/Vol] 29 U/L 15 - 46 U/L [facility] Bilirubin [Mass/Vol] 0.4 mg/dL 0.2 - 1 .3 mg/dL [facility] Calcium [Mass/Vol] 9.2 mg/dL 8.4 - 10. 4 mg/dL [facility] Chloride [Moles/Vol] 100 mmol/L 98 - 10 7 mmol/L [facility] CO2 [Moles/Vol] 25 mmol/L 22 - 30 mmol/L [facility] Creatinine [Mass/Vol] 0.85 mg/dL 0.66 - 1.25 mg/dL [facility] GFR/1.73 sq M.predicted MDRD (S/P/Bld) [Vol rate/Area] - PINF [facility] Comment on above: Calculation based on the Chronic Kidney Disease Epidemiology Collaboration (CKD-EPI) equation refit without adjustment for race Glucose [Mass/Vol] 73 mg/dL 70 - 100 mg/dL [facility] Interpretation and review of laboratory results Abnormal [facility] Potassium [Moles/Vol] 4.1 mmol/L 3.5 - 5.1 mmol/L [facility] Protein [Mass/Vol] 6.7 g/dL 6.3 - 8.2 g/dL [facility] Sodium [Moles/Vol] 132 mmol/L Low 135 - 145 mmol/L [facility] Urea nitrogen [Mass/Vol] 9 mg/dL 9 - 20 mg/dL [facility] Slightly Hemolyzed [facility] Laboratory - Chemistry and C hemistry - challengeon 04-27-2024 Glucose [Mass/Vol] 107 mg/dL High 70 - 100 mg/dL [facility] Glucose [Mass/Vol] 111 mg/dL High 70 - 100 mg/dL [facility] Glucose [Mass/Vol] 110 mg/dL High 70 - 100 mg/dL [facility] Glucose [Mass/Vol] 76 mg/dL 70 - 100 mg/dL [facility] No Panel Informationon 04-27 Interpretation and review of laboratory results Abnormal [facility] Performed by: [facility], [address] , [facility] [address] CLIA ID: [id number] [facility] Interpretation and review of laboratory results Abnormal [facility] Performed by: [facility], [address] , [facility] [address] CLIA ID: [id number] [facility] Interpretation and review of laboratory results Abnormal [facility] Performed by: [facility], [address] , [facility] [address] CLIA ID: [id number] [facility] Interpretation and review of laboratory results Normal [facility] Performed by: [facility], [address], [facility] [address] CLIA ID: [id number] [facility] Progress Noteon 04-27-2024 Progress Note Normal [facility] Progress Note Normal [facility] Progress Note Normal [facility] Progress Note Normal [facility] CARECOORDon 04-26-2024 [place] [facility] unable to accept. Dakota Rhodes able to accept and pt agreeable. Anticipate starting auth 04/27 Normal [facility] [place] Normal [facility] [place] Normal [facility] CBC W Auto Differential pane l (Bld)on 04-26-2024 Basophils (Bld) [#/Vol] 0.0 10*3/uL 0.0 - 0.2 10*3/uL [facility] Basophils/100 WBC (Bld) 0.5 % 0.0 - 2.0 % [facility] Eosinophils (Bld) [#/Vol] 0.2 10*3/uL 0.0 - 0.5 10*3/uL [facility] Eosinophils/100 WBC (Bld) 3.5 % 0.0 - 6.0 % [facility] Erythrocyte distribution width (RBC) [Ratio] 13.9 % 11.5 - 15.0 % [facility] Hematocrit (Bld) [Volume fraction] 34.3 % Low 40.0 - 52.0 % [facility] Hemoglobin (Bld) [Mass/Vol] 11.3 g/dL Low 13.0 - 18.0 g/dL [facility] Immature granulocytes (Bld) [#/Vol] 0.0 10*3/uL NINF - 0.1 10*3/uL [facility] Immature granulocytes/100 WBC (Bld) 0.7 % 0.0 - 2.0 % [facility] Interpretation and review of laboratory results Abnormal [facility] Lymphocytes (Bld) [#/Vol] 1.7 10*3/uL 1.0 - 4.3 10*3/uL [facility] Lymphocytes/100 WBC (Bld) 27.8 % 15.0 - 45.0 % [facility] MCH (RBC) [Entitic mass] 30.1 pg 26.0 - 34.0 pg [facility] MCHC (RBC) [Mass/Vol] 32.9 % 30.5 - 36.0 % [facility] MCV (RBC) [Entitic vol] 91.5 fL 77.0 - 99.0 fL [facility] Monocytes (Bld) [#/Vol] 0.5 10*3/uL 0.0 - 0.9 10*3/uL [facility] Monocytes/100 WBC (Bld) 7.4 % 5.0 - 13.0 % [facility] Neutrophils (Bld) [#/Vol] 3.6 10*3/uL 1.8 - 7.5 10*3/uL [facility] Neutrophils/100 WBC (Bld) 60.1 % 38.0 - 82.0 % [facility] Nucleated RBC/100 WBC (Bld) [Ratio] 0.0 % [facility] Platelet mean volume (Bld) [Entitic vol] 9.3 fL 9.0 - 12.7 fL [facility] Platelets (Bld) [#/Vol] 123 10*3/uL Low 140 - 440 10*3/uL [facility] RBC (Bld) [#/Vol] 3.75 10*6/uL Low 4.40 - 5.9 0 10*6/uL [facility] WBC (Bld) [#/Vol] 6.1 10*3/uL 3.6 - 10.7 10*3/uL [facility] CBC WITH AUTO DIFFERENTIALon 04-26-2024 Basophils (Bld) [#/Vol] 0.0 10*3/uL Normal 0.0-0.2 [facility] Comment on above: Performed By: #### L [id number] ####Flame Channeler: TRESSA SANTIZO ([id number])[facility])[address] [place] [address] Basophils/100 WBC (Bld) 0.5 % Normal 0.0-2.0 [facility] Comment on above: Performed By: #### L [id number] ####Flame Channeler: TRESSA SANTIZO ([phone])[facility])[address] [place] [address] Eosinophils (Bld) [#/Vol] 0.2 10*3/uL Normal 0.0-0.5 [facility] Comment on above: Performed By: #### L [id number] ####Flame Channeler: TRESSA SANTIZO ([id number])[facility])[address] Eosinophils/100 WBC (Bld) 3.5 % Normal 0.0-6.0 [facility] Comment on above: Performed By: #### L [id number] ####Flame Channeler: TRESSA SANTIZO ([id number])[facility])[address] [place] [address] Erythrocyte distribution width (RBC) [Ratio] 13.9 % Normal 11.5-15.0 [facility] Comment on above: Performed By: #### L [id number] ####Flame Channeler: TRESSA DARLYN ([id number])[facility] ([facility])[address] Hematocrit (Bld) [Volume fraction] 34.3 % Low 40.0-52.0 [facility] Comment on above: Performed By: #### L [id number] ####Flame Channeler: TRESSA DARLYN ([id number])[facility] ([facility])[address] Hemoglobin (Bld) [Mass/Vol] 11.3 g/dL Low 13.0-18.0 [facility] Comment on above: Performed By: #### L [id number] ####Flame Channeler: TRESSA SANTIZO ([id number])[facility])[address] [place] [address] IMMATURE GRANS % 0.7 % Normal 0.0-2.0 [facility] Comment on above: Performed By: #### L [id number] ####Flame Channeler: TRESSA JONESScarJAVY ([id number])[facility])[address] [place] [address] IMMATURE GRANS ABSOLUTE 0.0 10*3/uL Normal <0.1 [facility] Comment on above: Performed By: #### L [id number] ####Flame Channeler: TRESSA CHRISJAVY ([id number])[facility] ([facility])[address] [place] [address] Lymphocytes (Bld) [#/Vol] 1.7 10*3/uL Normal 1.0-4.3 [facility] Comment on above: Performed By: #### L [id number] ####Flame Channeler: TRESSA CHRISJAVY ([id number])[facility] ([facility])[address] [place] [address] Lymphocytes/100 WBC (Bld) 27.8 % Normal 15.0-45.0 [facility] Comment on above: Performed By: #### L [id number] ####Flame Channeler: TRESSA JONESScarJAVY ([id number])[facility] ([facility])[address] MCH (RBC) [Entitic mass] 30.1 pg Normal 26.0-34.0 [facility] Comment on above: Performed By: #### L [id number] ####Flame Channeler: TRESSA DARLYN ([id number])[facility] ([facility])[address] MCHC 32.9 % Normal 30.5-36.0 [facility] Comment on above: Performed By: #### L [id number] ####Flame Channeler: TRESSA DARLYN ([id number])[facility] ([facility])[address] [place] [address] MCV (RBC) [Entitic vol] 91.5 fL Normal 77.0-99.0 [facility] Comment on above: Performed By: #### L [id number] ####Flame Channeler: TRESSA CHRISJAVY ([phone])[facility] ([facility])[address] Monocytes (Bld) [#/Vol] 0.5 10*3/uL Normal 0.0-0.9 [facility] Comment on above: Performed By: #### L [id number] ####Flame Channeler: TRESSA SANTIZO ([phone])[facility] ([facility])[address] Monocytes/100 WBC (Bld) 7.4 % Normal 5.0-13.0 [facility] Comment on above: Performed By: #### L [id number] ####Flame Channeler: TRESSA SANTIZO ([id number])[facility] ([facility])[address] NEUTROPHILS ABSOLUTE 3.6 10*3/uL Normal 1.8-7.5 [facility] Comment on above: Performed By: #### L [id number] ####Flame Channeler: TRESSARAY SANTIZO ([phone])[facility] ([facility])[address] Neutrophils/100 WBC (Bld) 60.1 % Normal 38.0-82.0 [facility] Comment on above: Performed By: #### L [id number] ####Flame Channeler: TRESSA SANTIZO ([phone])[facility] ([facility])[address] NRBC 0.0 /100 WBCs Normal 0.0-2.0 [facility] Comment on above: Performed By: #### L [id number] ####Flame Channeler: TRESSA SANTIZO ([phone])[facility] ([facility])[address] Platelet mean volume (Bld) [Entitic vol] 9.3 fL Normal 9.0-12.7 [facility] Comment on above: Performed By: #### L [id number] ####Flame Channeler: TRESSARAY SANTIZO ([phone])[facility] ([facility])[address] Platelets (Bld) [#/Vol] 123 10*3/uL Low 140-440 [facility] Comment on above: Performed By: #### L [id number] ####Flame Channeler: TRESSA DARLYN ([phone])[facility] (SBHLAB)[address] RBC (Bld) [#/Vol] 3.75 10*6/uL Low 4.40-5.90 [facility] Comment on above: Performed By: #### L [id number] ####Flame Channeler: TRESSA DARLYN ([phone])[facility] (SB[facility])[address] WBC (Bld) [#/Vol] 6.1 10*3/uL Normal 3.6-10.7 [facility] Comment on above: Performed By: #### L [id number] ####Flame Channeler: TRESSA SANTIZO ([phone])[facility] (SBHLAB)[address] [place] [address] [place] IDNon 04-26-2024 IDN Normal [facility] IDN Normal [facility] Laboratory - Chemistry and C hemistry - challengeon 04-26-2024 Glucose [Mass/Vol] 102 mg/dL High 70 - 100 mg/dL [facility] Glucose [Mass/Vol] 91 mg/dL 70 - 100 mg/dL [facility] Glucose [Mass/Vol] 107 mg/dL High 70 - 100 mg/dL [facility] Glucose [Mass/Vol] 99 mg/dL 70 - 100 mg/dL [facility] No Panel Informationon 04-26 Interpretation and review of laboratory results Abnormal [facility] Performed by: [facility], [address] [place] [address] CLIA ID: [id number] [facility] Interpretation and review of laboratory results Normal [facility] Performed by: [facility], [address] [place] [address] CLIA ID: [id number] [facility] Interpretation and review of laboratory results Abnormal [facility] Performed by: [facility], [address] [place] [address] CLIA ID: [id number] [facility] Interpretation and review of laboratory results Normal [facility] Performed by: [facility], [address] [place] [address] CLIA ID: [id number] [facility] Nursing Noteon 04-26-2024 Nursing Note Normal [facility] Progress Noteon 04-26-2024 Progress Note Normal [facility] Progress Note Normal [facility] Progress Note Normal [facility] Progress Note Normal [facility] BASIC METABOLIC PANELon Anion gap [Moles/Vol] 6 mmol/L Normal 3-13 [facility] Comment on above: Performed By: #### L [id number] ####Flame Channeler: TRESSA SANTIZO ([phone])[facility] (SBHLAB)[address] Calcium [Mass/Vol] 9.2 mg/dL Normal 8.4-10.4 [facility] Comment on above: Performed By: #### L AB15 ####Flame Channeler: TRESSA SANTIZO ([phone])[facility] (SBHLAB)[address] Chloride [Moles/Vol] 100 mmol/L Normal 98-107 [facility] Comment on above: Performed By: #### L AB15 ####Flame Channeler: TRESSA SANTIZO ([phone])[facility] [place] ([facility])[address] CO2 [Moles/Vol] 25 mmol/L Normal 22-30 [facility] Comment on above: Performed By: #### L AB15 ####Flame Channeler: TRESSA SANTIZO ([phone])[facility] ([facility])[address] Creatinine [Mass/Vol] 0.89 mg/dL Normal 0.66-1.25 [facility] Comment on above: Performed By: #### L AB15 ####Flame Channeler: TRESSA SANTIZO ([phone])[facility] (SBHLAB)[address] GLOMERULAR FILTRATION RATE ML/MIN/1.73 SQ M.PREDICTED >90.0 Normal >60.0 [facility] Comment on above: Result Comment: Calc ulation based on the Chronic Kidney Disease Epidemiology Collaboration (CKD-EPI) equation refit without adjustment for race Performed By: #### L AB15 ####Flame Channeler: TRESSA SANTIZO ([phone])[facility] [place] ([facility])[address] [place] [address] [place] Glucose [Mass/Vol] 114 mg/dL High 70-100 [facility] Comment on above: Performed By: #### L AB15 ####Flame Channeler: TRESSA SANTIZO ([phone])[facility] ([facility])[address] Potassium [Moles/Vol] 4.0 mmol/L Normal 3.5-5.1 [facility] Comment on above: Performed By: #### L AB15 ####Flame Channeler: TRESSA SANTIZO ([phone])[facility] (SBHLAB)[address] Sodium [Moles/Vol] 131 mmol/L Low 135-145 [facility] Comment on above: Performed By: #### L AB15 ####Flame Channeler: TRESSA SANTIZO ([phone])[facility] (SBHLAB)[address] Urea nitrogen [Mass/Vol] 10 mg/dL Normal 9-20 [facility] Comment on above: Performed By: #### L AB15 ####Flame Channeler: TRESSA CHRISJAVY ([phone])[facility] (SBHLAB)[address] [place] [address] Basic metabolic 1998 panelon 04-25-2024 Anion gap [Moles/Vol] 6 mmol/L 3 - 13 mmol/L [facility] Calcium [Mass/Vol] 9.2 mg/dL 8.4 - 10. 4 mg/dL [facility] Chloride [Moles/Vol] 100 mmol/L 98 - 10 7 mmol/L [facility] CO2 [Moles/Vol] 25 mmol/L 22 - 30 mmol/L [facility] Creatinine [Mass/Vol] 0.89 mg/dL 0.66 - 1.25 mg/dL [facility] GFR/1.73 sq M.predicted MDRD (S/P/Bld) [Vol rate/Area] - PINF [facility] Comment on above: Calculation based on the Chronic Kidney Disease Epidemiology Collaboration (CKD-EPI) equation refit without adjustment for race Glucose [Mass/Vol] 114 mg/dL High 70 - 100 mg/dL [facility] Interpretation and review of laboratory results Abnormal [facility] Potassium [Moles/Vol] 4.0 mmol/L 3.5 - 5.1 mmol/L [facility] Sodium [Moles/Vol] 131 mmol/L Low 135 - 145 mmol/L [facility] Urea nitrogen [Mass/Vol] 10 mg/dL 9 - 20 mg/dL [facility] CARECOORDon 04-25-2024 CARECOORD Normal [facility] CBC W Auto Differential pane l (Bld)Ordered By: Philip Medrano on 04-25-2024 Erythrocyte distribution width (RBC) [Ratio] 14.1 % 11.5 - 15.0 % [facility] Hematocrit (Bld) [Volume fraction] 35.6 % Low 40.0 - 52.0 % [facility] Hemoglobin (Bld) [Mass/Vol] 11.7 g/dL Low 13.0 - 18.0 g/dL [facility] Interpretation and review of laboratory results Abnormal [facility] MCH (RBC) [Entitic mass] 30.2 pg 26.0 - 34.0 pg [facility] MCHC (RBC) [Mass/Vol] 32.9 % 30.5 - 36.0 % [facility] MCV (RBC) [Entitic vol] 91.8 fL 77.0 - 99.0 fL [facility] Platelet mean volume (Bld) [Entitic vol] 8.7 fL Low 9.0 - 12.7 fL [facility] Platelets (Bld) [#/Vol] 127 10*3/uL Low 140 - 440 10*3/uL [facility] RBC (Bld) [#/Vol] 3.88 10*6/uL Low 4.40 - 5.9 0 10*6/uL [facility] WBC (Bld) [#/Vol] 8.4 10*3/uL 3.6 - 10.7 10*3/uL [facility] CBC WITH AUTO DIFFERENTIALon 04-25-2024 Erythrocyte distribution width (RBC) [Ratio] 14.1 % Normal 11.5-15.0 [facility] Comment on above: Performed By: #### L [id number], [id number] ####Flame Channeler: TRESSA SANTIZO ([phone])[facility] ([facility])[address] [place] [address] Hematocrit (Bld) [Volume fraction] 35.6 % Low 40.0-52.0 [facility] Comment on above: Performed By: #### L [id number], [id number] ####Flame Channeler: TRESSA SANTIZO ([phone])[facility] (SBHLAB)[address] Hemoglobin (Bld) [Mass/Vol] 11.7 g/dL Low 13.0-18.0 [facility] Comment on above: Performed By: #### L [id number], [id number] ####Flame Channeler: TRESSA SANTIZO ([phone])[facility] (SBHLAB)[address] MCH (RBC) [Entitic mass] 30.2 pg Normal 26.0-34.0 [facility] Comment on above: Performed By: #### L [id number], [id number] ####Flame Channeler: TRESSA CHRISJAVY ([id number])[facility] (HLAB)[address] MCHC 32.9 % Normal 30.5-36.0 [facility] Comment on above: Performed By: #### L [id number], [id number] ####Flame Channeler: TRESSA SANTIZO ([id number])[facility] (SBHLAB)[address] MCV (RBC) [Entitic vol] 91.8 fL Normal 77.0-99.0 [facility] Comment on above: Performed By: #### L [id number], [id number] ####Flame Channeler: TRESSA SANTIZO ([id number])[facility] (SBHLAB)[address] Platelet mean volume (Bld) [Entitic vol] 8.7 fL Low 9.0-12.7 [facility] Comment on above: Performed By: #### L [id number], [id number] ####Flame Channeler: TRESSA SANTIZO ([phone])[facility] (SBHLAB)[address] Platelets (Bld) [#/Vol] 127 10*3/uL Low 140-440 [facility] Comment on above: Performed By: #### L [id number], [id number] ####Flame Channeler: TRESSA SANTIZO ([phone])[facility] (SBHLAB)[address] [place] [address] RBC (Bld) [#/Vol] 3.88 10*6/uL Low 4.40-5.90 [facility] Comment on above: Performed By: #### L [id number], [id number] ####Flame Channeler: TRESSA SANTIZO ([id number])[facility] (SBHLAB)[address] [place] [address] WBC (Bld) [#/Vol] 8.4 10*3/uL Normal 3.6-10.7 [facility] Comment on above: Performed By: #### L [id number], [id number] ####Flame Channeler: TRESSA SANTIZO ([phone])[facility] (SBHLAB)[address] [place] [address] Consulton 04-25-2024 Consult Normal [facility] Consult Normal [facility] IDNon 04-25-2024 IDN Normal [facility] Laboratory - Chemistry and C hemistry - challengeon 04-25-2024 Glucose [Mass/Vol] 105 mg/dL High 70 - 100 mg/dL [facility] Glucose [Mass/Vol] 128 mg/dL High 70 - 100 mg/dL [facility] Glucose [Mass/Vol] 104 mg/dL High 70 - 100 mg/dL [facility] Glucose [Mass/Vol] 110 mg/dL High 70 - 100 mg/dL [facility] Laboratory - Hematology and Cell countson 04-25-2024 Band form neutrophils (Bld) [#/Vol] 0.6 10*3/uL High NINF - 0.0 10*3/uL [facility] Band form neutrophils/100 WBC (Bld) 7 % High NINF - 0 % [facility] Eosinophils (Bld) [#/Vol] 0.2 10*3/uL 0.0 - 0.5 10*3/uL [facility] Eosinophils/100 WBC (Bld) 2 % 0 - 6 % [facility] Lymphocytes (Bld) [#/Vol] 0.2 10*3/uL Low 1.0 - 4.3 10*3/uL [facility] Lymphocytes/100 WBC (Bld) 2 % Low 15 - 45 % [facility] Monocytes (Bld) [#/Vol] 0.1 10*3/uL 0.0 - 0.9 10*3/uL [facility] Monocytes/100 WBC (Bld) 1 % Low 5 - 13 % [facility] Neutrophils (Bld) [#/Vol] 8.0 10*3/uL High 1.8 - 7.5 10*3/uL [facility] RBC morphology finding Nom (Bld) Normal [facility] Segmented neutrophils/100 WBC (Bld) 88 % High 38 - 82 % [facility] MANUAL DIFFERENTIAL (CELLAVI ILIANA)on 04-25-2024 BAND NEUTROPHILS TOTAL PER COUNTED LEUKOCYTES BY MANUAL COUNT 7 Normal [facility] Comment on above: Performed By: #### L [id number], [id number] ####Flame Channeler: TRESSA SANTIZO ([phone])[facility] [place] (SBHLAB)[address] [place] [address] BANDS (10*3/UL) IN BLOOD-CELLAVISION 0.6 10*3/uL High <=0.0 [facility] Comment on above: Performed By: #### L [id number], [id number] ####Flame Channeler: TRESSA SANTIZO ([id number])[facility] [place] (SB[facility]AB)[address] [place] [address] [place] BASOPHILS TOTAL PER COUNTED LEUKOCYTES BY MANUAL COUNT Normal [facility] Comment on above: Performed By: #### L [id number], [id number] ####Flame Channeler: TRESSA SANTIZO ([phone])[facility] [place] (SB[facility]AB)[address] [place] [address] [place] BLASTS TOTAL PER COUNTED LEUKOCYTES BY MANUAL COUNT Normal [facility] Comment on above: Performed By: #### L [id number], [id number] ####Flame Channeler: TRESSA SANTIZO ([phone])[facility] (SBHLAB)[address] [place] [address] [place] EOSINOPHILS (10*3/UL) IN BLOOD-CELLAVISION 0.2 10*3/uL Normal 0.0-0.5 [facility] Comment on above: Performed By: #### L [id number], [id number] ####Flame Channeler: TRESSA CHRISJAVY ([id number])[facility] [place] ([facility])[address] [place] [address] [place] EOSINOPHILS TOTAL PER COUNTED LEUKOCYTES BY MANUAL COUNT 2 High 0-1 [facility] Comment on above: Performed By: #### L [id number], [id number] ####Flame Channeler: TRESSA OJEDACER ([id number])[facility] [place] ([facility])[address] [place] [address] [place] EOSINOPHILS/100 LEUKOCYTES IN BLOOD-CELLAVISION 2 % Normal 0-6 [facility] Comment on above: Performed By: #### L [id number], [id number] ####Flame Channeler: TRESSA CHRISJAVY ([phone])[facility] (SBHLAB)[address] [place] [address] [place] LYMPHOCYTES (10*3/UL) IN BLOOD-CELLAVISION 0.2 10*3/uL Low 1.0-4.3 [facility] Comment on above: Performed By: #### L [id number], [id number] ####Flame Channeler: TRESSA SANTIZO ([id number])[facility] [place] ([facility])[address] [place] [address] [place] LYMPHOCYTES TOTAL PER COUNTED LEUKOCYTES BY MANUAL COUNT 2 Normal [facility] Comment on above: Performed By: #### L [id number], [id number] ####Flame Channeler: TRESSA CHRISJAVY ([id number])[facility] [place] ([facility])[address] [place] [address] [place] LYMPHOCYTES/100 LEUKOCYTES IN BLOOD-CELLAVISION 2 % Low 15-45 [facility] Comment on above: Performed By: #### L [id number], [id number] ####Flame Channeler: TRESSA SANTIZO ([phone])[facility] (SBHLAB)[address] [place] [address] [place] METAMYELOCYTES TOTAL PER COUNTED LEUKOCYTES BY MANUAL COUNT Normal [facility] Comment on above: Performed By: #### L [id number], [id number] ####Flame Channeler: TRESSA SANTIZO ([id number])[facility] [place] ([facility])[address] [place] [address] [place] MONOCYTES (10*3/UL) IN BLOOD-CELLAVISION 0.1 10*3/uL Normal 0.0-0.9 [facility] Comment on above: Performed By: #### L [id number], [id number] ####Flame Channeler: TRESSA SANTIZO ([id number])[facility] [place] ([facility])[address] MONOCYTES TOTAL PER COUNTED LEUKOCYTES BY MANUAL COUNT 1 Normal [facility] Comment on above: Performed By: #### L [id number], [id number] ####Flame Channeler: TRESSA SANTIZO ([phone])[facility] [place] ([facility])[address] [place] [address] [place] MONOCYTES/100 LEUKOCYTES IN BLOOD-JOSE 1 % Low 5-13 [facility] Comment on above: Performed By: #### L [id number], [id number] ####Flame Channeler: TRESSA SANTIZO ([phone])[facility] [place] ([facility])[address] [place] [address] [place] MYELOCYTES COUNTED BY MANUAL COUNT Normal [facility] Comment on above: Performed By: #### L [id number], [id number] ####Flame Channeler: TRESSA SANTIZO ([phone])[facility] [place] ([facility])[address] [place] [address] [place] NEUTROPHILS BAND FORM/100 LEUKOCYTES IN BLOOD-CELLAVISI 7 % High <=0 [facility] Comment on above: Performed By: #### L [id number], [id number] ####Flame Channeler: RTESSA [id number])[facility] (SBHLAB)[address] [place] [address] [place] NEUTROPHILS TOTAL PER COUNTED LEUKOCYTES BY MANUAL COUNT [address] [facility] Comment on above: Performed By: #### L [id number], [id number] ####Flame Channeler: TRESSA SANTIZO ([phone])[facility] (SBHLAB)[address] [place] [address] [place] PROMYELOCYTES TOTAL PER COUNTED LEUKOCYTES BY MANUAL COUNT Normal [facility] Comment on above: Performed By: #### L [id number], [id number] ####Flame Channeler: TRESSA SANTIZO ([phone])[facility] (SBHLAB)[address] RBC MORPHOLOGY IN BLOOD Normal [facility] Comment on above: Performed By: #### L [id number], [id number] ####Flame Channeler: TRESSA SANTIZO ([phone])[facility] [place] ([facility])[address] [place] [address] [place] SEGMENTED NEUTROPHILS (10*3/UL) IN BLOOD-CELLAVISION 8.0 10*3/uL High 1.8-7.5 [facility] Comment on above: Performed By: #### L [id number], [id number] ####Flame Channeler: TRESSA SANTIZO ([phone])[facility] [place] ([facility])[address] [place] [address] [place] SEGMENTED NEUTROPHILS/100 LEUKOCYTES-CE 88 % High 38-82 [facility] Comment on above: Performed By: #### L [id number], [id number] ####Flame Channeler: TRESSA SANTIZO ([phone])[facility] [place] ([facility])[address] [place] [address] [place] UNCLASSIFIED CELLS TOTAL PER COUNTED LEUKOCYTES BY MANUAL COUNT [facility] Comment on above: Performed By: #### L [id number], [id number] ####Flame Channeler: TRESSA SANTIZO ([phone])[facility] [place] ([facility])[address] [place] [address] VARIANT LYMPHOCYTES TOTAL PER COUNTED LEUKOCYTES BY MANUAL COUNT Normal [facility] Comment on above: Performed By: #### L [id number], [id number] ####Flame Channeler: TRESSA SANTIZO ([id number])[facility] (SBHLAB)[address] [place] [address] No Panel Informationon 04-25 Interpretation and review of laboratory results Abnormal [facility] Performed by: [facility], [address] [place] [address] CLIA ID: [id number] [facility] Interpretation and review of laboratory results Abnormal [facility] Performed by: [facility], [address] [place] [address] CLIA ID: [id number] [facility] Interpretation and review of laboratory results Abnormal [facility] Performed by: [facility], [address] [place] [address] CLIA ID: [id number] [facility] Interpretation and review of laboratory results Abnormal [facility] Performed by: [facility], [address] [place] [address] CLIA ID: [id number] [facility] Atypical Lymphocytes Manual [facility] Bands Manual 7 [facility] Basophils Manual [facility] Blasts Manual [facility] Eosinophils Manual 2 High 0 - 1 [facility] Interpretation and review of laboratory results Abnormal [facility] Lymphocytes Manual 2 [facility] Metamyelocytes Manual [facility] Monocytes Manual 1 [facility] Myelocytes Manual [facility] Neutrophils Manual 88 [facility] Promyelocytes Manual [facility] Unclassified Cells, Manual [facility] Nursing Noteon 04-25-2024 Nursing Note Normal [facility] Progress Noteon 04-25-2024 Progress Note Normal [facility] Progress Note Normal [facility] Progress Note Normal [facility] Progress Note Pt had a couple epis odes of emesis- yellow and undigested food. Zofran given and vitals assessed. Pt expresses that this is common for him to have emesis like this. Pt reported feeling better after IV Zofran was given. Normal [facility] CARECOORDon 04-24-2024 CAR[place]OORD Normal [facility] CBC W Auto Differential pane l (Bld)Ordered By: Michael Quinn on 04-24-2024 Basophils (Bld) [#/Vol] 0.0 10*3/uL 0.0 - 0.2 10*3/uL [facility] Basophils/100 WBC (Bld) 0.9 % 0.0 - 2.0 % [facility] Eosinophils (Bld) [#/Vol] 0.1 10*3/uL 0.0 - 0.5 10*3/uL [facility] Eosinophils/100 WBC (Bld) 2.2 % 0.0 - 6.0 % [facility] Erythrocyte distribution width (RBC) [Ratio] 14.2 % 11.5 - 15.0 % [facility] Hematocrit (Bld) [Volume fraction] 33.1 % Low 40.0 - 52.0 % [facility] Hemoglobin (Bld) [Mass/Vol] 10.9 g/dL Low 13.0 - 18.0 g/dL [facility] Immature granulocytes (Bld) [#/Vol] 0.0 10*3/uL NINF - 0.1 10*3/uL [facility] Immature granulocytes/100 WBC (Bld) 0.2 % 0.0 - 2.0 % [facility] Interpretation and review of laboratory results Abnormal [facility] Lymphocytes (Bld) [#/Vol] 1.4 10*3/uL 1.0 - 4.3 10*3/uL [facility] Lymphocytes/100 WBC (Bld) 30.3 % 15.0 - 45.0 % [facility] MCH (RBC) [Entitic mass] 30.1 pg 26.0 - 34.0 pg [facility] MCHC (RBC) [Mass/Vol] 32.9 % 30.5 - 36.0 % [facility] MCV (RBC) [Entitic vol] 91.4 fL 77.0 - 99.0 fL [facility] Monocytes (Bld) [#/Vol] 0.3 10*3/uL 0.0 - 0.9 10*3/uL [facility] Monocytes/100 WBC (Bld) 7.6 % 5.0 - 13.0 % [facility] Neutrophils (Bld) [#/Vol] 2.6 10*3/uL 1.8 - 7.5 10*3/uL [facility] Neutrophils/100 WBC (Bld) 58.8 % 38.0 - 82.0 % [facility] Nucleated RBC/100 WBC (Bld) [Ratio] 0.0 % [facility] Platelet mean volume (Bld) [Entitic vol] 8.7 fL Low 9.0 - 12.7 fL [facility] Platelets (Bld) [#/Vol] 137 10*3/uL Low 140 - 440 10*3/uL [facility] RBC (Bld) [#/Vol] 3.62 10*6/uL Low 4.40 - 5.9 0 10*6/uL [facility] WBC (Bld) [#/Vol] 4.5 10*3/uL 3.6 - 10.7 10*3/uL [facility] CBC WITH AUTO DIFFERENTIALon 04-24-2024 Basophils (Bld) [#/Vol] 0.0 10*3/uL Normal 0.0-0.2 [facility] Comment on above: Performed By: #### L [id number] ####Flame Channeler: TRESSA SANTIZO ([phone])[facility] [place] [address] Basophils/100 WBC (Bld) 0.9 % Normal 0.0-2.0 [facility] Comment on above: Performed By: #### L [id number] ####Flame Channeler: TRESSA SANTIZO ([phone])[facility])[address] [place] [address] [place] Eosinophils (Bld) [#/Vol] 0.1 10*3/uL Normal 0.0-0.5 [facility] Comment on above: Performed By: #### L [id number] ####Flame Channeler: TRESSA SANTIZO ([id number])[facility])[address] Eosinophils/100 WBC (Bld) 2.2 % Normal 0.0-6.0 [facility] Comment on above: Performed By: #### L [id number] ####Flame Channeler: TRESSA SANTIZO ([phone])[facility] [place] ([facility])[address] Erythrocyte distribution width (RBC) [Ratio] 14.2 % Normal 11.5-15.0 [facility] Comment on above: Performed By: #### L [id number] ####Flame Channeler: TRESSA SANTIZO ([phone])[facility])[address] Hematocrit (Bld) [Volume fraction] 33.1 % Low 40.0-52.0 [facility] Comment on above: Performed By: #### L [id number] ####Flame Channeler: TRESSA SANTIZO ([phone])[facility] ([facility])[address] [place] [address] Hemoglobin (Bld) [Mass/Vol] 10.9 g/dL Low 13.0-18.0 [facility] Comment on above: Performed By: #### L [id number] ####Flame Channeler: TRESSA SANTIZO ([phone])[facility])[address] IMMATURE GRANS % 0.2 % Normal 0.0-2.0 [facility] Comment on above: Performed By: #### L [id number] ####Flame Channeler: TRESSA SANTIZO ([phone])[facility])[address] IMMATURE GRANS ABSOLUTE 0.0 10*3/uL Normal <0.1 [facility] Comment on above: Performed By: #### L [id number] ####Flame Channeler: TRESSA SANTIZO ([phone])[facility])[address] Lymphocytes (Bld) [#/Vol] 1.4 10*3/uL Normal 1.0-4.3 [facility] Comment on above: Performed By: #### L [id number] ####Flame Channeler: TRESSA SANTIZO ([phone])[facility] ([facility])[address] Lymphocytes/100 WBC (Bld) 30.3 % Normal 15.0-45.0 [facility] Comment on above: Performed By: #### L [id number] ####Flame Channeler: TRESSA SANTIZO ([id number])[facility] ([facility])[address] MCH (RBC) [Entitic mass] 30.1 pg Normal 26.0-34.0 [facility] Comment on above: Performed By: #### L [id number] ####Flame Channeler: TRESSA SANTIZO ([id number])[facility] [place] ([facility])[address] MCHC 32.9 % Normal 30.5-36.0 [facility] Comment on above: Performed By: #### L [id number] ####Flame Channeler: TRESSA SANTIZO ([id number])[facility] ([facility])[address] MCV (RBC) [Entitic vol] 91.4 fL Normal 77.0-99.0 [facility] Comment on above: Performed By: #### L [id number] ####Flame Channeler: TRESSA SANTIZO ([phone])[facility] (SBHLAB)[address] [place] [address] [place] Monocytes (Bld) [#/Vol] 0.3 10*3/uL Normal 0.0-0.9 [facility] Comment on above: Performed By: #### L [id number] ####Flame Channeler: TRESSA SANTIZO ([phone])[facility] UNITTim (SBHLAB)[address] Monocytes/100 WBC (Bld) 7.6 % Normal 5.0-13.0 [facility] Comment on above: Performed By: #### L [id number] ####Flame Channeler: TRESSA SANTIZO ([phone])[facility] (SBHLAB)[address] NEUTROPHILS ABSOLUTE 2.6 10*3/uL Normal 1.8-7.5 [facility] Comment on above: Performed By: #### L [id number] ####Flame Channeler: TRESSA SANTIZO ([phone])[facility] [place] (SBHLAB)[address] Neutrophils/100 WBC (Bld) 58.8 % Normal 38.0-82.0 [facility] Comment on above: Performed By: #### L [id number] ####Flame Channeler: TRESSA SANTIZO ([phone])[facility] [place] (SBHLAB)[address] NRBC 0.0 /100 WBCs Normal 0.0-2.0 [facility] Comment on above: Performed By: #### L [id number] ####Flame Channeler: TRESSA SANTIZO ([id number])[facility] [place] (SBHLAB)[address] Platelet mean volume (Bld) [Entitic vol] 8.7 fL Low 9.0-12.7 [facility] Comment on above: Performed By: #### L [id number] ####Flame Channeler: TRESSA SANTIZO ([phone])[facility] [place] (SBHLAB)[address] [place] [address] [place] Platelets (Bld) [#/Vol] 137 10*3/uL Low 140-440 [facility] Comment on above: Performed By: #### L [id number] ####Flame Channeler: TRESSA SANTIZO ([phone])[facility] [place] (SBHLAB)[address] [place] [address] [place] RBC (Bld) [#/Vol] 3.62 10*6/uL Low 4.40-5.90 [facility] Comment on above: Performed By: #### L [id number] ####Flame Channeler: TRESSA SANTIZO ([id number])[facility] (SBHLAB)[address] WBC (Bld) [#/Vol] 4.5 10*3/uL Normal 3.6-10.7 [facility] Comment on above: Performed By: #### L [id number] ####Flame Channeler: TRESSA SANTIZO ([phone])[facility] [place] (SBHLAB)[address] COMPREHENSIVE METABOLIC PANE Peter 04-24-2024 Albumin [Mass/Vol] 3.5 g/dL Normal 3.5-5.0 [facility] Comment on above: Performed By: #### L AB17 ####Flame Channeler: TRESSA SANTIZO ([id number])[facility] [place] (SBHLAB)[address] ALP [Catalytic activity/Vol] 53 U/L Normal 38-126 [facility] Comment on above: Performed By: #### L AB17 ####Flame Channeler: TRESSA SANTIZO ([phone])[facility] [place] (SBHLAB)[address] ALT [Catalytic activity/Vol] 21 U/L Normal 0-49 [facility] Comment on above: Performed By: #### L AB17 ####Flame Channeler: TRESSA SANTIZO ([phone])[facility] [place] (SBHLAB)[address] Anion gap [Moles/Vol] 6 mmol/L Normal 3-13 [facility] Comment on above: Performed By: #### L AB17 ####Flame Channeler: TRESSA SANTIZO ([id number])[facility] [place] (SBHLAB)[address] AST [Catalytic activity/Vol] 23 U/L Normal 15-46 [facility] Comment on above: Performed By: #### L AB17 ####Flame Channeler: TRESSA SANTIZO ([phone])[facility] [place] (SBHLAB)[address] Bilirubin [Mass/Vol] 0.6 mg/dL Normal 0.2-1.3 [facility] Comment on above: Performed By: #### L AB17 ####Flame Channeler: TRESSA SANTIZO ([phone])[facility] [place] (SBHLAB)[address] Calcium [Mass/Vol] 8.8 mg/dL Normal 8.4-10.4 [facility] Comment on above: Performed By: #### L AB17 ####Flame Channeler: TRESSA SANTIZO ([phone])[facility] [place] (SBHLAB)[address] Chloride [Moles/Vol] 100 mmol/L Normal 98-107 [facility] Comment on above: Performed By: #### L AB17 ####Flame Channeler: TRESSA SANTIZO ([phone])[facility] [place] (SBHLAB)[address] CO2 [Moles/Vol] 26 mmol/L Normal 22-30 [facility] Comment on above: Performed By: #### L AB17 ####Flame Channeler: TRESSA SANTIZO ([phone])[facility] [place] (SBHLAB)[address] Creatinine [Mass/Vol] 0.87 mg/dL Normal 0.66-1.25 [facility] Comment on above: Performed By: #### L AB17 ####Flame Channeler: TRESSA SANTIZO ([phone])[facility] [place] (SBHLAB)[address] GLOMERULAR FILTRATION RATE ML/MIN/1.73 SQ M.PREDICTED >90.0 Normal >60.0 [facility] Comment on above: Result Comment: Calc ulation based on the Chronic Kidney Disease Epidemiology Collaboration (CKD-EPI) equation refit without adjustment for race Performed By: #### L AB17 ####Flame Channeler: TRESSA SANTIZO ([phone])[facility] [place] (SBHLAB)[address] Glucose [Mass/Vol] 147 mg/dL High 70-100 [facility] Comment on above: Performed By: #### L AB17 ####Flame Channeler: TRESSA SANTIZO ([id number])[facility] (SBHLAB)[address] Potassium [Moles/Vol] 4.0 mmol/L Normal 3.5-5.1 [facility] Comment on above: Performed By: #### L AB17 ####Flame Channeler: TRESSA SANTIZO ([phone])[facility] (SBHLAB)[address] Protein [Mass/Vol] 6.2 g/dL Low 6.3-8.2 [facility] Comment on above: Performed By: #### L AB17 ####Flame Channeler: TRESSA SANTIZO ([id number])[facility] (SBHLAB)[address] Sodium [Moles/Vol] 132 mmol/L Low 135-145 [facility] Comment on above: Performed By: #### L AB17 ####Flame Channeler: TRESSA SANTIZO ([id number])[facility] (SBHLAB)[address] Urea nitrogen [Mass/Vol] 7 mg/dL Low 9-20 [facility] Comment on above: Performed By: #### L AB17 ####Flame Channeler: TRESSA SANTIZO ([phone])[facility] (SBHLAB)[address] Comprehensive metabolic 1998 panelon 04-24-2024 Albumin [Mass/Vol] 3.5 g/dL 3.5 - 5.0 g/dL [facility] ALP [Catalytic activity/Vol] 53 U/L 38 - 126 U/L [facility] ALT [Catalytic activity/Vol] 21 U/L 0 - 49 U/L [facility] Anion gap [Moles/Vol] 6 mmol/L 3 - 13 mmol/L [facility] AST [Catalytic activity/Vol] 23 U/L 15 - 46 U/L [facility] Bilirubin [Mass/Vol] 0.6 mg/dL 0.2 - 1 .3 mg/dL [facility] Calcium [Mass/Vol] 8.8 mg/dL 8.4 - 10. 4 mg/dL [facility] Chloride [Moles/Vol] 100 mmol/L 98 - 10 7 mmol/L [facility] CO2 [Moles/Vol] 26 mmol/L 22 - 30 mmol/L [facility] Creatinine [Mass/Vol] 0.87 mg/dL 0.66 - 1.25 mg/dL [facility] GFR/1.73 sq M.predicted MDRD (S/P/Bld) [Vol rate/Area] - PINF [facility] Comment on above: Calculation based on the Chronic Kidney Disease Epidemiology Collaboration (CKD-EPI) equation refit without adjustment for race Glucose [Mass/Vol] 147 mg/dL High 70 - 100 mg/dL [facility] Interpretation and review of laboratory results Abnormal [facility] Potassium [Moles/Vol] 4.0 mmol/L 3.5 - 5.1 mmol/L [facility] Protein [Mass/Vol] 6.2 g/dL Low 6.3 - 8.2 g/dL [facility] Sodium [Moles/Vol] 132 mmol/L Low 135 - 145 mmol/L [facility] Urea nitrogen [Mass/Vol] 7 mg/dL Low 9 - 20 mg/dL [facility] IDNon 04-24-2024 IDN Normal [facility] Laboratory - Chemistry and C hemistry - challengeon 04-24-2024 Glucose [Mass/Vol] 176 mg/dL High 70 - 100 mg/dL [facility] Glucose [Mass/Vol] 98 mg/dL 70 - 100 mg/dL [facility] Glucose [Mass/Vol] 140 mg/dL High 70 - 100 mg/dL [facility] Glucose [Mass/Vol] 119 mg/dL High 70 - 100 mg/dL [facility] No Panel Informationon 04-24 Interpretation and review of laboratory results Abnormal [facility] Performed by: [facility], [address] [place] [address] [place] [address] CLIA ID: [id number] [facility] Interpretation and review of laboratory results Normal [facility] Performed by: [facility], [address] , [facility] [address] CLIA ID: [id number] [facility] Interpretation and review of laboratory results Abnormal [facility] Performed by: [facility], [address] , [facility] [address] CLIA ID: [id number] [facility] Interpretation and review of laboratory results Abnormal [facility] Performed by: [facility], [address] , [facility] [address] CLIA ID: [id number] [facility] Nursing Noteon 04-24-2024 Nursing Note Normal [facility] Progress Noteon 04-24-2024 Progress Note Nutrition rescreen completed. Patient assigned a level 1 for nutrition care. Normal [facility] Progress Note Normal [facility] CBC W Auto Differential pane l (Bld)on 04-23-2024 Basophils (Bld) [#/Vol] 0.1 10*3/uL 0.0 - 0.2 10*3/uL [facility] Basophils/100 WBC (Bld) 1.2 % 0.0 - 2.0 % [facility] Eosinophils (Bld) [#/Vol] 0.2 10*3/uL 0.0 - 0.5 10*3/uL [facility] Eosinophils/100 WBC (Bld) 2.0 % 0.0 - 6.0 % [facility] Erythrocyte distribution width (RBC) [Ratio] 13.9 % 11.5 - 15.0 % [facility] Hematocrit (Bld) [Volume fraction] 32.8 % Low 40.0 - 52.0 % [facility] Hemoglobin (Bld) [Mass/Vol] 11.3 g/dL Low 13.0 - 18.0 g/dL [facility] Immature granulocytes (Bld) [#/Vol] 0.0 10*3/uL NINF - 0.1 10*3/uL [facility] Immature granulocytes/100 WBC (Bld) 0.4 % 0.0 - 2.0 % [facility] Interpretation and review of laboratory results Abnormal [facility] Lymphocytes (Bld) [#/Vol] 3.7 10*3/uL 1.0 - 4.3 10*3/uL [facility] Lymphocytes/100 WBC (Bld) 48.2 % High 15.0 - 45.0 % [facility] MCH (RBC) [Entitic mass] 30.4 pg 26.0 - 34.0 pg [facility] MCHC (RBC) [Mass/Vol] 34.5 % 30.5 - 36.0 % [facility] MCV (RBC) [Entitic vol] 88.2 fL 77.0 - 99.0 fL [facility] Monocytes (Bld) [#/Vol] 0.5 10*3/uL 0.0 - 0.9 10*3/uL [facility] Monocytes/100 WBC (Bld) 6.3 % 5.0 - 13.0 % [facility] Neutrophils (Bld) [#/Vol] 3.2 10*3/uL 1.8 - 7.5 10*3/uL [facility] Neutrophils/100 WBC (Bld) 41.9 % 38.0 - 82.0 % [facility] Nucleated RBC/100 WBC (Bld) [Ratio] 0.0 % [facility] Platelet mean volume (Bld) [Entitic vol] 8.5 fL Low 9.0 - 12.7 fL [facility] Platelets (Bld) [#/Vol] 200 10*3/uL 140 - 440 10*3/uL [facility] RBC (Bld) [#/Vol] 3.72 10*6/uL Low 4.40 - 5.9 0 10*6/uL [facility] WBC (Bld) [#/Vol] 7.6 10*3/uL 3.6 - 10.7 10*3/uL [facility] CBC WITH AUTO DIFFERENTIALon 04-23-2024 Basophils (Bld) [#/Vol] 0.1 10*3/uL Normal 0.0-0.2 [facility] Comment on above: Performed By: #### L [id number] ####Flame Channeler: TRESSA SANTIZO ([phone])[facility] ([facility])[address] [place] [address] Basophils/100 WBC (Bld) 1.2 % Normal 0.0-2.0 [facility] Comment on above: Performed By: #### L [id number] ####Flame Channeler: TRESSA SANTIZO ([id number])[facility] [place] (SB[facility])[address] [place] [address] Eosinophils (Bld) [#/Vol] 0.2 10*3/uL Normal 0.0-0.5 [facility] Comment on above: Performed By: #### L [id number] ####Flame Channeler: TRESSA SANTIZO ([id number])[facility] ([facility])[address] Eosinophils/100 WBC (Bld) 2.0 % Normal 0.0-6.0 [facility] Comment on above: Performed By: #### L [id number] ####Flame Channeler: TRESSA SANTIZO ([phone])[facility] ([facility])[address] [place] [address] Erythrocyte distribution width (RBC) [Ratio] 13.9 % Normal 11.5-15.0 [facility] Comment on above: Performed By: #### L [id number] ####Flame Channeler: TRESSA SANTIZO ([id number])[facility] ([facility])[address] [place] [address] Hematocrit (Bld) [Volume fraction] 32.8 % Low 40.0-52.0 [facility] Comment on above: Performed By: #### L [id number] ####Flame Channeler: TRESSA SANTIZO ([phone])[facility] ([facility])[address] [place] [address] Hemoglobin (Bld) [Mass/Vol] 11.3 g/dL Low 13.0-18.0 [facility] Comment on above: Performed By: #### L [id number] ####Flame Channeler: TRESSA SANTIZO ([phone])[facility] ([facility])[address] IMMATURE GRANS % 0.4 % Normal 0.0-2.0 [facility] Comment on above: Performed By: #### L [id number] ####Flame Channeler: TRESSA SANTIZO ([phone])[facility] (SBHLAB)[address] IMMATURE GRANS ABSOLUTE 0.0 10*3/uL Normal <0.1 [facility] Comment on above: Performed By: #### L [id number] ####Flame Channeler: TRESSA SANTIZO ([phone])[facility]ESCAL[facility] UNITTim (SBHLAB)[address] Lymphocytes (Bld) [#/Vol] 3.7 10*3/uL Normal 1.0-4.3 [facility] Comment on above: Performed By: #### L [id number] ####Flame Channeler: TRESSA SANTIZO ([id number])[facility] UNITTim (SBAB)[address] Lymphocytes/100 WBC (Bld) 48.2 % High 15.0-45.0 [facility] Comment on above: Performed By: #### L [id number] ####Flame Channeler: TRESSA SANTIZO ([id number])[facility] UNITTim (SBHLAB)[address] MCH (RBC) [Entitic mass] 30.4 pg Normal 26.0-34.0 [facility] Comment on above: Performed By: #### L [id number] ####Flame Channeler: TRESSA SANTIZO ([phone])[facility] (SBHLAB)[address] MCHC 34.5 % Normal 30.5-36.0 [facility] Comment on above: Performed By: #### L [id number] ####Flame Channeler: TRESSA SANTIZO ([id number])[facility] UNITTim (SBHLAB)[address] MCV (RBC) [Entitic vol] 88.2 fL Normal 77.0-99.0 [facility] Comment on above: Performed By: #### L [id number] ####Flame Channeler: TRESSA SANTIZO ([id number])[facility] (SBHLAB)[address] Monocytes (Bld) [#/Vol] 0.5 10*3/uL Normal 0.0-0.9 [facility] Comment on above: Performed By: #### L [id number] ####Flame Channeler: TRESSA SANTIZO ([id number])[facility] (SBHLAB)[address] Monocytes/100 WBC (Bld) 6.3 % Normal 5.0-13.0 [facility] Comment on above: Performed By: #### L [id number] ####Flame Channeler: TRESSA SANTIZO ([id number])[facility] (SBHLAB)[address] NEUTROPHILS ABSOLUTE 3.2 10*3/uL Normal 1.8-7.5 [facility] Comment on above: Performed By: #### L [id number] ####Flame Channeler: TRESSA SANTIZO ([id number])[facility] [place] (SBHLAB)[address] Neutrophils/100 WBC (Bld) 41.9 % Normal 38.0-82.0 [facility] Comment on above: Performed By: #### L [id number] ####Flame Channeler: TRESSA SANTIZO ([phone])[facility] (SBHLAB)[address] NRBC 0.0 /100 WBCs Normal 0.0-2.0 [facility] Comment on above: Performed By: #### L [id number] ####Flame Channeler: TRESSA SANTIZO ([phone])[facility] (SBHLAB)[address] [place] [address] [place] Platelet mean volume (Bld) [Entitic vol] 8.5 fL Low 9.0-12.7 [facility] Comment on above: Performed By: #### L [id number] ####Flame Channeler: TRESSA SANTIZO ([id number])[facility] [place] (SBHLAB)[address] Platelets (Bld) [#/Vol] 200 10*3/uL Normal 140-440 [facility] Comment on above: Performed By: #### L [id number] ####Flame Channeler: TRESSA SANTIZO ([id number])[facility] (SBHLAB)[address] RBC (Bld) [#/Vol] 3.72 10*6/uL Low 4.40-5.90 [facility] Comment on above: Performed By: #### L [id number] ####Flame Channeler: TRESSA SANTIZO ([id number])[facility] (SBHLAB)[address] WBC (Bld) [#/Vol] 7.6 10*3/uL Normal 3.6-10.7 [facility] Comment on above: Performed By: #### L [id number] ####Flame Channeler: TRESSA SANTIZO ([id number])[facility] (SBHLAB)[address] [place] [address] COMPREHENSIVE METABOLIC PANE Peter 04-23-2024 Albumin [Mass/Vol] 3.7 g/dL Normal 3.5-5.0 [facility] Comment on above: Performed By: #### L AB129, LAB17, YKR338, LAB67 ####Flame Channeler: TRESSA SANTIZO ([id number])[facility] (SBHLAB)[address] ALP [Catalytic activity/Vol] 49 U/L Normal 38-126 [facility] Comment on above: Performed By: #### L AB129, LAB17, PQO829, LAB67 ####Flame Channeler: TRESSA SANTIZO ([id number])[facility] (SBHLAB)[address] ALT [Catalytic activity/Vol] 26 U/L Normal 0-49 [facility] Comment on above: Performed By: #### L AB129, LAB17, KEM211, LAB67 ####Flame Channeler: TRESSA SANTIZO ([id number])[facility] (SB[facility]AB)[address] [place] [address] [place] Anion gap [Moles/Vol] 13 mmol/L Normal 3-13 [facility] Comment on above: Performed By: #### L AB129, LAB17, VGL301, LAB67 ####Flame Channeler: TRESSA SANTIZO ([id number])[facility] (SBHLAB)[address] AST [Catalytic activity/Vol] 45 U/L Normal 15-46 [facility] Comment on above: Performed By: #### L AB129, LAB17, GCR783, LAB67 ####Flame Channeler: TRESSA SANTIZO ([id number])[facility] (SBHLAB)[address] Bilirubin [Mass/Vol] 0.5 mg/dL Normal 0.2-1.3 [facility] Comment on above: Performed By: #### L AB129, LAB17, EWK449, LAB67 ####Flame Channeler: TRESSA SANTIZO ([id number])[facility] (SBHLAB)[address] Calcium [Mass/Vol] 8.5 mg/dL Normal 8.4-10.4 [facility] Comment on above: Performed By: #### L AB129, LAB17, DPN048, LAB67 ####Flame Channeler: TRESSA SANTIZO ([phone])[facility] [place] (SB[facility])[address] [place] [address] [place] Chloride [Moles/Vol] 93 mmol/L Low 98-107 [facility] Comment on above: Performed By: #### L AB129, LAB17, EXZ460, LAB67 ####Flame Channeler: TRESSA SANTIZO ([id number])[facility] (SB[facility])[address] [place] [address] [place] CO2 [Moles/Vol] 22 mmol/L Normal 22-30 [facility] Comment on above: Performed By: #### L AB129, LAB17, CTL257, LAB67 ####Flame Channeler: TRESSA SANTIZO ([id number])[facility])[address] Creatinine [Mass/Vol] 0.94 mg/dL Normal 0.66-1.25 [facility] Comment on above: Performed By: #### L AB129, LAB17, RUN584, LAB67 ####Flame Channeler: TRESSA SANTIZO ([id number])[facility] [place] ([facility])[address] [place] [address] GLOMERULAR FILTRATION RATE ML/MIN/1.73 SQ M.PREDICTED >90.0 Normal >60.0 [facility] Comment on above: Result Comment: Calc ulation based on the Chronic Kidney Disease Epidemiology Collaboration (CKD-EPI) equation refit without adjustment for race Performed By: #### L AB129, LAB17, WHG507, LAB67 ####Flame Channeler: TRESSA SANTIZO ([id number])[facility] ([facility])[address] [place] [address] [place] Glucose [Mass/Vol] 127 mg/dL High 70-100 [facility] Comment on above: Performed By: #### L AB129, LAB17, JLR168, LAB67 ####Flame Channeler: TRESSA SANTIZO ([id number])[facility])[address] [place] [address] [place] Potassium [Moles/Vol] 3.4 mmol/L Low 3.5-5.1 [facility] Comment on above: Performed By: #### L AB129, LAB17, OYW143, LAB67 ####Flame Channeler: TRESSA SANTIZO ([phone])[facility] ([facility])[address] Protein [Mass/Vol] 6.3 g/dL Normal 6.3-8.2 [facility] Comment on above: Performed By: #### L AB129, LAB17, JWE450, LAB67 ####Flame Channeler: TRESSA SANTIZO ([id number])[facility] (SBHLAB)[address] Sodium [Moles/Vol] 128 mmol/L Low 135-145 [facility] Comment on above: Performed By: #### L AB129, LAB17, UMU816, LAB67 ####Flame Channeler: TRESSA SANTIZO ([id number])[facility] (SBHLAB)[address] Urea nitrogen [Mass/Vol] 5 mg/dL Low 9-20 [facility] Comment on above: Performed By: #### L AB129, LAB17, SSY028, LAB67 ####Flame Channeler: TRESSA CHRISJAVY ([id number])[facility] (SBHLAB)[address] Cobalamin (Vitamin B12) [Mas s/Vol]on 04-23-2024 Interpretation and review of laboratory results Normal [facility] Comprehensive metabolic 1998 panelon 04-23-2024 Albumin [Mass/Vol] 3.7 g/dL 3.5 - 5.0 g/dL [facility] ALP [Catalytic activity/Vol] 49 U/L 38 - 126 U/L [facility] ALT [Catalytic activity/Vol] 26 U/L 0 - 49 U/L [facility] Anion gap [Moles/Vol] 13 mmol/L 3 - 13 mmol/L [facility] AST [Catalytic activity/Vol] 45 U/L 15 - 46 U/L [facility] Bilirubin [Mass/Vol] 0.5 mg/dL 0.2 - 1 .3 mg/dL [facility] Calcium [Mass/Vol] 8.5 mg/dL 8.4 - 10. 4 mg/dL [facility] Chloride [Moles/Vol] 93 mmol/L Low 98 - 10 7 mmol/L [facility] CO2 [Moles/Vol] 22 mmol/L 22 - 30 mmol/L [facility] Creatinine [Mass/Vol] 0.94 mg/dL 0.66 - 1.25 mg/dL [facility] GFR/1.73 sq M.predicted MDRD (S/P/Bld) [Vol rate/Area] - PINF [facility] Comment on above: Calculation based on the Chronic Kidney Disease Epidemiology Collaboration (CKD-EPI) equation refit without adjustment for race Glucose [Mass/Vol] 127 mg/dL High 70 - 100 mg/dL [facility] Interpretation and review of laboratory results Abnormal [facility] Potassium [Moles/Vol] 3.4 mmol/L Low 3.5 - 5.1 mmol/L [facility] Protein [Mass/Vol] 6.3 g/dL 6.3 - 8.2 g/dL [facility] Sodium [Moles/Vol] 128 mmol/L Low 135 - 145 mmol/L [facility] Urea nitrogen [Mass/Vol] 5 mg/dL Low 9 - 20 mg/dL [facility] ECG 12-LEADon 04-23-2024 ECG 12-LEAD IMPRESSION: Sinus tachycardia RBBB and LAFB Electronically Signed On 04-23-2024 06:02:53 EDT by Marjan Doran Normal [facility] HEMOGLOBIN A1Con 04-23-2024 Glucose [Mass/Vol] 88 mg/dL Normal [facility] Comment on above: Order Comment: If no t done within the last 3 mos Performed By: #### L AB90 ####Flame Channeler: TRESSA SANTIZO ([phone])[facility] ([facility])[address] [place] [address] HbA1c (Bld) [Mass fraction] 4.7 % Normal <5.7 [facility] Comment on above: Order Comment: If no t done within the last 3 mos Result Comment: Norm al less than 5.7%Prediabetes 5.7% to 6.4%Diabetes 6.5% or higher--HgbA1C levels may not be accurate in patients who have renal disease, received recent blood transfusions, are anemic, or who have dyshemoglobinemia. Performed By: #### L AB90 ####Flame Channeler: TRESSA SANTIZO ([phone])[facility] ([facility])[address] [place] [address] Laboratory - Chemistry and C hemistry - challengeon 04-23-2024 Glucose [Mass/Vol] 142 mg/dL High 70 - 100 mg/dL [facility] Glucose [Mass/Vol] 133 mg/dL High 70 - 100 mg/dL [facility] Glucose [Mass/Vol] 187 mg/dL High 70 - 100 mg/dL [facility] Glucose [Mass/Vol] 124 mg/dL High 70 - 100 mg/dL [facility] Magnesium [Mass/Vol] 1.4 mg/dL Low 1.6 - 2 .3 mg/dL [facility] Average glucose Estimated from glycated hemoglobin (Bld) [Mass/Vol] 88 mg/dL [facility] Cobalamin (Vitamin B12) [Mass/Vol] 684 pg/mL 239 - 931 pg/mL [facility] TSH Qn 4.014 m[IU]/L [facility] Glucose [Mass/Vol] 148 mg/dL High 70 - 100 mg/dL [facility] Laboratory - Hematology and Cell countson 04-23-2024 HbA1c (Bld) [Mass fraction] 4.7 % NINF - 5.7 % [facility] Comment on above: Normal less than 5.7 % Prediabetes 5.7% to 6.4% Diabetes 6.5% or higher --HgbA1C levels may not be accurate in patients who have renal disease, received recent blood transfusions, are anemic, or who have dyshemoglobinemia. MAGNESIUMon 04-23-2024 Magnesium [Mass/Vol] 1.4 mg/dL Low 1.6-2.3 [facility] Comment on above: Performed By: #### L AB129, LAB17, [id number], LAB67 ####Flame Channeler: TRESSA SANTIZO ([id number])HANNA HERNANDEZ (SBHLAB)[address] [place] [address] Magnesium [Mass/Vol]on 04-23 Interpretation and review of laboratory results Abnormal [facility] No Panel Informationon 04-23 Interpretation and review of laboratory results Abnormal [facility] Performed by: [facility], [address] [address] CLIA ID: [id number] [facility] Interpretation and review of laboratory results Abnormal [facility] Performed by: [facility], [address] [facility] [address] CLIA ID: [id number] [facility] Interpretation and review of laboratory results Abnormal [facility] [employer] Performed by: [facility], [address] [facility] [address] CLIA ID: [id number] [facility] [employer] [facility] Interpretation and review of laboratory results Abnormal [facility] [employer] Performed by: [facility], [address] [facility] [address] CLIA ID: [id number] [facility] Sinus tachycardia RBBB and LAFB Electronically Signed On 04-23-2024 06:02:53 EDT by Marjan Doran CV Marjan Paredes MD - 04/23/2024 IMPRESSION: Sinus tachycardia RBBB and LAFB Electronically Signed On 04-23-2024 06:02:53 EDT by Marjan Doran [facility] [employer] Interpretation and review of laboratory results Abnormal [facility] [employer] Performed by: [facility], [address] [facility] [address] CLIA ID: [id number] [facility] [employer] No Panel InformationOrdered By: Marjan Doran on 04-23-2024 P [place] 41 degrees [employer] Work Phone: TX Interval 169 ms [facility] [employer] Work Phone: QRS [place] -48 degrees [employer] Work Phone: QRSD Interval 147 ms [employer] Work Phone: QT Interval 396 ms [employer] Work Phone: QTC Interval 513 ms [facility] Work Phone: T Wave [place] -4 degrees [employer] Work Phone: [employer] Work Phone: Nursing Noteon 04-23-2024 Nursing Note Normal [facility] Progress Noteon 04-23-2024 Progress Note Normal [facility] Progress Note Normal [facility] Progress Note Normal [facility] THYROID STIMULATING HORMONEo n 04-23-2024 THYROID STIMULATING HORMONE 4.014 uIU/mL Normal 0.465-4.680 [facility] Comment on above: Performed By: #### L AB129, LAB17, [id number], LAB67 ####Flame Channeler: TRESSA SANTIZO ([phone])[facility] ROSARIOMESCALERO SERVICE UNITTim (SBHLAB)[address] TSH Qnon 04-23-2024 Interpretation and review of laboratory results Normal [facility] VITAMIN B12on 04-23-2024 Cobalamin (Vitamin B12) [Mass/Vol] 684 pg/mL Normal 239-931 [facility] Comment on above: Performed By: #### L AB129, LAB17, [id number], LAB67 ####Flame Channeler: TRESSA SANTIZO ([phone])[facility] (SB[facility]AB)[address] Vital signsOrdered By: Jaylon Doran on 04-23-2024 Heart rate 101 /min bpm [facility] Work Phone: ACETAMINOPHEN LEVELon 2023 Acetaminophen [Mass/Vol] ug/mL Low 10.0-30.0 [facility] Comment on above: Performed By: #### L AB43, LAB17, LAB46 ####Flame Channeler: TRESSA SANTIZO ([phone])[facility])[address] [place] [address] CBC W Auto Differential pane l (Bld)Ordered By: Lorin Carmona on 04-22-2024 Erythrocyte distribution width (RBC) [Ratio] 13.7 % 11.5 - 15.0 % [facility] Hematocrit (Bld) [Volume fraction] 36.5 % Low 40.0 - 52.0 % [facility] Hemoglobin (Bld) [Mass/Vol] 12.9 g/dL Low 13.0 - 18.0 g/dL [facility] Interpretation and review of laboratory results Abnormal [facility] MCH (RBC) [Entitic mass] 30.4 pg 26.0 - 34.0 pg [facility] MCHC (RBC) [Mass/Vol] 35.3 % 30.5 - 36.0 % [facility] MCV (RBC) [Entitic vol] 86.1 fL 77.0 - 99.0 fL [facility] Platelet mean volume (Bld) [Entitic vol] 8.2 fL Low 9.0 - 12.7 fL [facility] Platelets (Bld) [#/Vol] 269 10*3/uL 140 - 440 10*3/uL [facility] RBC (Bld) [#/Vol] 4.24 10*6/uL Low 4.40 - 5.9 0 10*6/uL [facility] WBC (Bld) [#/Vol] 11.2 10*3/uL High 3.6 - 10.7 10*3/uL [facility] CBC WITH AUTO DIFFERENTIALon 04-22-2024 Erythrocyte distribution width (RBC) [Ratio] 13.7 % Normal 11.5-15.0 [facility] Comment on above: Performed By: #### L [id number], [id number] ####Flame Channeler: TRESSA SANTIZO ([phone])[facility] ([facility])[address] [place] [address] Hematocrit (Bld) [Volume fraction] 36.5 % Low 40.0-52.0 [facility] Comment on above: Performed By: #### L [id number], [id number] ####Flame Channeler: TRESSA SANTIZO ([phone])[facility] ([facility])[address] [place] [address] Hemoglobin (Bld) [Mass/Vol] 12.9 g/dL Low 13.0-18.0 [facility] Comment on above: Performed By: #### L [id number], [id number] ####Flame Channeler: TRESSA SANTIZO ([phone])[facility])[address] [place] [address] MCH (RBC) [Entitic mass] 30.4 pg Normal 26.0-34.0 [facility] Comment on above: Performed By: #### L [id number], [id number] ####Flame Channeler: TRESSA SANTIZO ([id number])[facility] ([facility])[address] [place] [address] MCHC 35.3 % Normal 30.5-36.0 [facility] Comment on above: Performed By: #### L [id number], [id number] ####Flame Channeler: TRESSA SANTIZO ([id number])[facility] [place] (SBHLAB)[address] MCV (RBC) [Entitic vol] 86.1 fL Normal 77.0-99.0 [facility] Comment on above: Performed By: #### L [id number], [id number] ####Flame Channeler: TRESSA SANTIZO ([id number])[facility] [place] ([facility])[address] Platelet mean volume (Bld) [Entitic vol] 8.2 fL Low 9.0-12.7 [facility] Comment on above: Performed By: #### L [id number], [id number] ####Flame Channeler: TRESSA SANTIZO ([id number])[facility] [place] ([facility])[address] Platelets (Bld) [#/Vol] 269 10*3/uL Normal 140-440 [facility] Comment on above: Performed By: #### L [id number], [id number] ####Flame Channeler: TRESSA SANTIZO ([id number])[facility] [place] ([facility])[address] RBC (Bld) [#/Vol] 4.24 10*6/uL Low 4.40-5.90 [facility] Comment on above: Performed By: #### L [id number], [id number] ####Flame Channeler: TRESSA SANTIZO ([id number])[facility] [place] ([facility])[address] [place] [address] [place] WBC (Bld) [#/Vol] 11.2 10*3/uL High 3.6-10.7 [facility] Comment on above: Performed By: #### L [id number], [id number] ####Flame Channeler: TRESSA SANTIZO ([phone])[facility] [place] ([facility])[address] COMPLETE URINALYSISon 2023 BILIRUBIN, TOTAL PRESENCE IN URINE Negative Normal Negative [facility] Comment on above: Performed By: #### L AB347 ####Flame Channeler: TRESSA SANTIZO ([phone])[facility] ([facility])[address] Clarity (U) Clear Normal Clear [facility] Comment on above: Performed By: #### L AB347 ####Flame Channeler: TRESSA SANTIZO ([phone])[facility] ([facility])[address] Color (U) Colorless Normal Lt. Yellow [facility] Comment on above: Performed By: #### L AB347 ####Flame Channeler: TRESSA SANTIZO ([phone])[facility] ([facility])[address] GLUCOSE (MG/DL) IN URINE Normal Normal Normal (<70) [facility] Comment on above: Performed By: #### L AB347 ####Flame Channeler: TRESSA SANTIZO ([id number])[facility] ([facility])[address] HEMOGLOBIN PRESENCE IN URINE Negative Normal Negative [facility] Comment on above: Performed By: #### L AB347 ####Flame Channeler: TRESSA SANTIZO ([phone])[facility])[address] Ketones Ql (U) Negative Normal Negative [facility] Comment on above: Performed By: #### L AB347 ####Flame Channeler: TRESSA SANTIZO ([id number])[facility] ([facility])[address] LEUKOCYTE ESTERASE PRESENCE IN URINE BY TEST STRIP Negative Normal Negative [facility] Comment on above: Performed By: #### L AB347 ####Flame Channeler: TRESSA SANTIZO ([id number])[facility] [place] ([facility])[address] NITRITE PRESENCE IN URINE Negative Normal Negative [facility] Comment on above: Performed By: #### L AB347 ####Flame Channeler: TRESSA SANTIZO ([id number])[facility] [place] ([facility])[address] pH (U) 5.5 [pH] Normal 5.0-8.0 [facility] Comment on above: Performed By: #### L AB347 ####Flame Channeler: TRESSA SANTIZO ([id number])[facility] (SB[facility])[address] Protein (U) [Mass/Vol] Negative Normal Negative [facility] Comment on above: Performed By: #### L AB347 ####Flame Channeler: TRESSA SANTIZO ([id number])[facility] (SB[facility])[address] Specific gravity (U) [Rel density] 1.003 Low 1.005-1.030 [facility] Comment on above: Performed By: #### L AB347 ####Flame Channeler: TRESSA SANTIZO ([id number])[facility] (SB[facility])[address] [place] [address] UROBILINOGEN (MG/DL) IN URINE Normal Normal Normal (0-1) [facility] Comment on above: Performed By: #### L AB347 ####Flame Channeler: TRESSA SANTIZO ([id number])[facility] (SBHLAB)[address] COMPREHENSIVE METABOLIC PANE Peter 04-22-2024 Albumin [Mass/Vol] 4.6 g/dL Normal 3.5-5.0 [facility] Comment on above: Performed By: #### L AB43, LAB17, LAB46 ####Flame Channeler: TRESSA SANTIZO ([id number])[facility] ([facility])[address] [place] [address] [place] ALP [Catalytic activity/Vol] 73 U/L Normal 38-126 [facility] Comment on above: Performed By: #### Popeye AB43, LAB17, LAB46 ####Flame Channeler: TRESSA SANTIZO ([id number])[facility] ([facility])[address] [place] [address] [place] ALT [Catalytic activity/Vol] 31 U/L Normal 0-49 [facility] Comment on above: Performed By: #### Popeye AB43, LAB17, LAB46 ####Flame Channeler: TRESSA SANTIZO ([id number])[facility] [place] ([facility])[address] Anion gap [Moles/Vol] 18 mmol/L High 3-13 [facility] Comment on above: Performed By: #### Popeye DERAS43, LAB17, LAB46 ####Flame Channeler: TRESSA SANTIZO ([id number])[facility] [place] ([facility])[address] [place] [address] [place] AST [Catalytic activity/Vol] 53 U/L High 15-46 [facility] Comment on above: Performed By: #### Popeye DERAS43, LAB17, LAB46 ####Flame Channeler: TRESSA SANTIZO ([id number])[facility] [place] ([facility])[address] [place] [address] [place] Bilirubin [Mass/Vol] 0.5 mg/dL Normal 0.2-1.3 [facility] Comment on above: Performed By: #### Popeye AB43, LAB17, LAB46 ####Flame Channeler: TRESSA SANTIZO ([id number])[facility] [place] ([facility])[address] [place] [address] [place] Calcium [Mass/Vol] 9.4 mg/dL Normal 8.4-10.4 [facility] Comment on above: Performed By: #### L AB43, LAB17, LAB46 ####Flame Channeler: TRESSA SANTIZO ([id number])[facility] [place] ([facility])[address] Chloride [Moles/Vol] 89 mmol/L Low 98-107 [facility] Comment on above: Performed By: #### Popeye AB43, LAB17, LAB46 ####Flame Channeler: TRESSA SANTIZO ([phone])[facility] (SB[facility])[address] CO2 [Moles/Vol] 20 mmol/L Low 22-30 [facility] Comment on above: Performed By: #### Popeye AB43, LAB17, LAB46 ####Flame Channeler: TRESSA SANTIZO ([phone])[facility] ([facility])[address] Creatinine [Mass/Vol] 0.78 mg/dL Normal 0.66-1.25 [facility] Comment on above: Performed By: #### Popeye PERALES, LAB17, LAB46 ####Flame Channeler: TRESSA SANTIZO ([id number])[facility] (HLAB)[address] GLOMERULAR FILTRATION RATE ML/MIN/1.73 SQ M.PREDICTED >90.0 Normal >60.0 [facility] Comment on above: Result Comment: Calc ulation based on the Chronic Kidney Disease Epidemiology Collaboration (CKD-EPI) equation refit without adjustment for race Performed By: #### Popeye DERAS43, LAB17, LAB46 ####Flame Channeler: TRESSA SANTIZO ([phone])[facility] (HLAB)[address] Glucose [Mass/Vol] 92 mg/dL Normal 70-100 [facility] Comment on above: Performed By: #### Popeye DERAS43, LAB17, LAB46 ####Flame Channeler: TRESSA SANTIZO ([id number])[facility] (HLAB)[address] Potassium [Moles/Vol] 4.2 mmol/L Normal 3.5-5.1 [facility] Comment on above: Performed By: #### L AB43, LAB17, LAB46 ####Flame Channeler: TRESSA DARLYN ([id number])[facility] (SB[facility])[address] Protein [Mass/Vol] 7.5 g/dL Normal 6.3-8.2 [facility] Comment on above: Performed By: #### L AB43, LAB17, LAB46 ####Flame Channeler: TRESSA SANTIZO ([phone])[facility] (SB[facility])[address] Sodium [Moles/Vol] 127 mmol/L Low 135-145 [facility] Comment on above: Performed By: #### L AB43, LAB17, LAB46 ####Flame Channeler: TRESSA CHRISJAVY ([id number])[facility] (SB[facility])[address] [place] [address] Urea nitrogen [Mass/Vol] 5 mg/dL Low 9-20 [facility] Comment on above: Performed By: #### L AB43, LAB17, LAB46 ####Flame Channeler: TRESSA JONESALEKSANDR ([phone])[facility] (SB[facility])[address] [place] [address] Comprehensive metabolic 1998 panelon 04-22-2024 Albumin [Mass/Vol] 4.6 g/dL 3.5 - 5.0 g/dL [facility] ALP [Catalytic activity/Vol] 73 U/L 38 - 126 U/L [facility] ALT [Catalytic activity/Vol] 31 U/L 0 - 49 U/L [facility] Anion gap [Moles/Vol] 18 mmol/L High 3 - 13 mmol/L [facility] AST [Catalytic activity/Vol] 53 U/L High 15 - 46 U/L [facility] Bilirubin [Mass/Vol] 0.5 mg/dL 0.2 - 1 .3 mg/dL [facility] Calcium [Mass/Vol] 9.4 mg/dL 8.4 - 10. 4 mg/dL [facility] Chloride [Moles/Vol] 89 mmol/L Low 98 - 10 7 mmol/L [facility] CO2 [Moles/Vol] 20 mmol/L Low 22 - 30 mmol/L [facility] Creatinine [Mass/Vol] 0.78 mg/dL 0.66 - 1.25 mg/dL [facility] GFR/1.73 sq M.predicted MDRD (S/P/Bld) [Vol rate/Area] - PINF [facility] Comment on above: Calculation based on the Chronic Kidney Disease Epidemiology Collaboration (CKD-EPI) equation refit without adjustment for race Glucose [Mass/Vol] 92 mg/dL 70 - 100 mg/dL [facility] Potassium [Moles/Vol] 4.2 mmol/L 3.5 - 5.1 mmol/L [facility] Protein [Mass/Vol] 7.5 g/dL 6.3 - 8.2 g/dL [facility] Sodium [Moles/Vol] 127 mmol/L Low 135 - 145 mmol/L [facility] Urea nitrogen [Mass/Vol] 5 mg/dL Low 9 - 20 mg/dL [facility] DRUGS OF ABUSEon 04-22-2024 AMPHETAMINE SCREEN Negative Normal [facility] Comment on above: Performed By: #### L [id number], AGY537, JJD042 ####Flame Channeler: TRESSA SANTIZO ([phone])[facility] (SBAB)[address] [place] [address] BARBITURATES SCREEN Positive Normal [facility] Comment on above: Performed By: #### L [id number], BPC448, [id number] ####Flame Channeler: TRESSA SANTIZO ([id number])[facility] (SB[facility])[address] [place] [address] BENZODIAZEPINE SCREEN Negative Normal [facility] Comment on above: Performed By: #### L [id number], XWH263, GEW798 ####Flame Channeler: TRESSA SANTIZO ([id number])[facility] (SB[facility])[address] [place] [address] COCAINE METAB. SCREEN Negative Normal [facility] Comment on above: Performed By: #### L [id number], [id number], GYR789 ####Flame Channeler: TRESSA SANTIZO ([id number])[facility] (SB[facility])[address] METHADONE SCREEN Negative Normal [facility] Comment on above: Performed By: #### L [id number], DJZ936, IIG819 ####Flame Channeler: TRESSA SANTIZO ([id number])[facility] [place] ([facility])[address] OPIATES SCREEN Negative Normal [facility] Comment on above: Performed By: #### L [id number], TFV270, RJY922 ####Flame Channeler: TRESSA SANTIZO ([phone])[facility] (SBHL[facility])[address] OXYCODONE SCREEN Positive Normal [facility] Comment on above: Performed By: #### L [id number], MEM611, IUT694 ####Flame Channeler: TRESSA SANTIZO ([phone])[facility] (SB[facility])[address] PHENCYCLIDINE SCREEN Negative Normal [facility] Comment on above: Result Comment: ORDE R COMMENTS:The expected value for all of the drugs listed above is Negative.The following drugs or drug groups have been screened for by Immunoassay at the following thresholds:Amphetamine class (1000 ng/mL)Barbiturates (200 ng/mL)Benzodiazepines (200 ng/mL)Cocaine (300 ng/mL)Methadone (300 ng/mL)Opiates (300 ng/mL)Oxycodone (100 ng/mL)PCP (25 ng/mL)NOTE: These results are for medical treatment only. Analysis performed using non-forensic procedures. POSITIVE results are NOT confirmed by a more specificalternative method unless requested. If confirmation is needed, request confirmation under separate order. Performed By: #### L [id number], KJC637, RNM226 ####Flame Channeler: TRESSA SANTIZO ([id number])[facility] (SBHLAB)[address] ED Nursing Noteon 04-22-2024 ED Nursing Note Normal [facility] ED Nursing Note Normal [facility] ED Nursing Note Detox rules signed b y patient. Witnessed by ACC RN. Ruperto Cortez RN 04/22/244 Normal [facility] ED Provider Noteon ED Provider Note Normal [facility] ETHANOLon 04-22-2024 ETHANOL IN SER/PLAS 0.309 g/dL Critically high 0.000-0.010 [facility] Comment on above: Result Comment: ORDE R COMMENTS:NOTE: This result is for medical treatment only. Analysis performed using non-forensic procedures. Performed By: #### L AB43, LAB17, LAB46 ####Flame Channeler: TRESSA SANTIZO ([id number])[facility] ([facility])[address] [place] [address] Ethanol (Bld) [Mass/Vol]Orde red By: Marlyn Levine on 04-22-2024 Ethanol [Mass/Vol] 0.309 g/dL Critically high 0.000 - 0.010 g/dL [facility] Interpretation and review of laboratory results Abnormal [facility] Laboratory - Chemistry and C hemistry - challengeOrdered By: Daniel Allen on 04-22-2024 Osmolality [Osmolality] 333 mosm/kg High [facility] - Chemistry and C hemistry - challengeon 04-22-2024 Glucose [Mass/Vol] 73 mg/dL 70 - 100 mg/dL [facility] Sodium (24H U) [Mass/Vol] 7 mmol/L Low 30 - 90 mmol/L [facility] - Drug toxicology on 04-22-2024 Amphetamines Screen method >1000 ng/mL Ql (U) Negative [facility] Barbiturates Screen method >200 ng/mL Ql (U) Positive [facility] Benzodiazepines Ql (U) Negative [facility] Methadone Screen Ql (U) Negative [facility] Opiates Screen Ql (U) Negative [facility] oxyCODONE Ql (U) Positive [facility] Phencyclidine Ql (U) Negative [facility] Acetaminophen [Mass/Vol] ug/mL Low 10.0 - 30.0 ug/mL [facility] - Hematology and Cell countson 04-22-2024 Basophils (Bld) [#/Vol] 0.2 10*3/uL 0.0 - 0.2 10*3/uL [facility] Basophils/100 WBC (Bld) 2 % 0 - 2 % [facility] Eosinophils (Bld) [#/Vol] 0.3 10*3/uL 0.0 - 0.5 10*3/uL [facility] Eosinophils/100 WBC (Bld) 3 % 0 - 6 % [facility] Lymphocytes (Bld) [#/Vol] 4.3 10*3/uL 1.0 - 4.3 10*3/uL [facility] Lymphocytes/100 WBC (Bld) 38 % 15 - 45 % [facility] Monocytes (Bld) [#/Vol] 0.1 10*3/uL 0.0 - 0.9 10*3/uL [facility] Monocytes/100 WBC (Bld) 1 % Low 5 - 13 % [facility] Neutrophils (Bld) [#/Vol] 6.3 10*3/uL 1.8 - 7.5 10*3/uL [facility] RBC morphology finding Nom (Bld) Normal [facility] Segmented neutrophils/100 WBC (Bld) 56 % 38 - 82 % [facility] - Microbiology an d Antimicrobial susceptibilityOrdered By: Aylin Moran on 04-22-2024 SARS-CoV-2 (COVID-19) Ag IA.rapid Ql (Resp) Negative Negative [facility] Comment on above: A negative result do es not rule out the possibility of SARS-CoV-2 infection. NAAT-based methods should be considered for symptomatic patients presenting greater than seven days after onset of symptoms. Method: Lateral flow immunoassay. Fact sheets for healthcare providers and patients can be found at the following sites: https://www.fda.gov/media/510767/download https://www.fda.gov/media/785064/download MANUAL DIFFERENTIAL (CELLAVI ILIANA)on 04-22-2024 BAND NEUTROPHILS TOTAL PER COUNTED LEUKOCYTES BY MANUAL COUNT Normal [facility] Comment on above: Performed By: #### L [id number], [id number] ####Flame Channeler: TRESSA SANTIZO ([id number])[facility] ([facility])[address] [place] [address] BASOPHILS (10*3/UL) IN BLOOD-CELLAVISION 0.2 10*3/uL Normal 0.0-0.2 [facility] Comment on above: Performed By: #### L [id number], [id number] ####Flame Channeler: TRESSA SANTIZO ([id number])[facility] (SB[facility])[address] [place] [address] [place] BASOPHILS TOTAL PER COUNTED LEUKOCYTES BY MANUAL COUNT 2 Normal [facility] Comment on above: Performed By: #### L [id number], [id number] ####Flame Channeler: TRESSA SANTIZO ([id number])[facility] ([facility])[address] [place] [address] [place] BASOPHILS/100 LEUKOCYTES IN BLOOD-CELLAVISION 2 % Normal 0-2 [facility] Comment on above: Performed By: #### L [id number], [id number] ####Flame Channeler: TRESSA CHRISJAVY ([id number])[facility] ([facility])[address] [place] [address] [place] BLASTS TOTAL PER COUNTED LEUKOCYTES BY MANUAL COUNT [facility] Comment on above: Performed By: #### L [id number], [id number] ####Flame Channeler: TRESSA SANTIZO ([id number])[facility] ([facility])[address] [place] [address] [place] EOSINOPHILS (10*3/UL) IN BLOOD-CELLAVISION 0.3 10*3/uL Normal 0.0-0.5 [facility] Comment on above: Performed By: #### L [id number], [id number] ####Flame Channeler: TRESSA CHRISJAVY ([id number])[facility] ([facility])[address] [place] [address] [place] EOSINOPHILS TOTAL PER COUNTED LEUKOCYTES BY MANUAL COUNT 3 High 0-1 [facility] Comment on above: Performed By: #### L [id number], [id number] ####Flame Channeler: TRESSA SANTIZO ([phone])[facility] ([facility])[address] [place] [address] [place] EOSINOPHILS/100 LEUKOCYTES IN BLOOD-CELLAVISION 3 % Normal 0-6 [facility] Comment on above: Performed By: #### L [id number], [id number] ####Flame Channeler: TRESSA SANTIZO ([id number])[facility] ([facility])[address] [place] [address] [place] LYMPHOCYTES (10*3/UL) IN BLOOD-CELLAVISION 4.3 10*3/uL Normal 1.0-4.3 [facility] Comment on above: Performed By: #### L [id number], [id number] ####Flame Channeler: TRESSA SANTIZO ([id number])[facility] ([facility])[address] LYMPHOCYTES TOTAL PER COUNTED LEUKOCYTES BY MANUAL COUNT 38 Normal [facility] Comment on above: Performed By: #### L [id number], [id number] ####Flame Channeler: TRESSA SANTIZO ([id number])[facility] ([facility])155 [place] [address] [place] LYMPHOCYTES/100 LEUKOCYTES IN BLOOD-CELLAVISION 38 % Normal 15-45 [facility] Comment on above: Performed By: #### L [id number], [id number] ####Flame Channeler: TRESSA SANTIZO ([phone])[facility] ([facility])[address] METAMYELOCYTES TOTAL PER COUNTED LEUKOCYTES BY MANUAL COUNT [facility] Comment on above: Performed By: #### L [id number], [id number] ####Flame Channeler: TRESSA CHRISJAVY ([id number])[facility] ([facility])[address] [place] [address] [place] MONOCYTES (10*3/UL) IN BLOOD-CELLAVISION 0.1 10*3/uL Normal 0.0-0.9 [facility] Comment on above: Performed By: #### L [id number], [id number] ####Flame Channeler: TRESSA SANTIZO ([phone])[facility] ([facility])[address] [place] [address] [place] MONOCYTES TOTAL PER COUNTED LEUKOCYTES BY MANUAL COUNT 1 Normal [facility] Comment on above: Performed By: #### L [id number], [id number] ####Flame Channeler: TRESSA SANTIZO ([id number])[facility] ([facility])[address] [place] [address] [place] MONOCYTES/100 LEUKOCYTES IN BLOOD-JOSE 1 % Low 5-13 [facility] Comment on above: Performed By: #### L [id number], [id number] ####Flame Channeler: TRESSA SANTIZO ([phone])[facility] ([facility])[address] [place] [address] [place] MYELOCYTES COUNTED BY MANUAL COUNT Normal [facility] Comment on above: Performed By: #### L [id number], [id number] ####Flame Channeler: TRESSA SANTIZO ([phone])[facility] ([facility])[address] [place] [address] [place] NEUTROPHILS TOTAL PER COUNTED LEUKOCYTES BY MANUAL COUNT 56 Normal [facility] Comment on above: Performed By: #### L [id number], [id number] ####Flame Channeler: TRESSA SANTIZO ([phone])[facility] ([facility])[address] [place] [address] [place] PROMYELOCYTES TOTAL PER COUNTED LEUKOCYTES BY MANUAL COUNT Normal [facility] Comment on above: Performed By: #### L [id number], [id number] ####Flame Channeler: TRESSA SANTIZO ([id number])[facility] ([facility])[address] [place] [address] [place] RBC MORPHOLOGY IN BLOOD Normal [facility] Comment on above: Performed By: #### L [id number], [id number] ####Flame Channeler: TRESSA SANTIZO ([id number])[facility] ([facility])[address] [place] [address] [place] SEGMENTED NEUTROPHILS (10*3/UL) IN BLOOD-CELLAVISION 6.3 10*3/uL Normal 1.8-7.5 [facility] Comment on above: Performed By: #### L [id number], [id number] ####Flame Channeler: TRESSA SANTIZO ([phone])[facility] [place] [address] SEGMENTED NEUTROPHILS/100 LEUKOCYTES-CE 56 % Normal 38-82 [facility] Comment on above: Performed By: #### L [id number], [id number] ####Flame Channeler: TRESSA SANTIZO ([phone])[facility] ([facility])[address] [place] [address] UNCLASSIFIED CELLS TOTAL PER COUNTED LEUKOCYTES BY MANUAL COUNT Normal [facility] Comment on above: Performed By: #### L [id number], [id number] ####Flame Channeler: TRESSA SANTIZO ([phone])[facility] ([facility])[address] [place] [address] VARIANT LYMPHOCYTES TOTAL PER COUNTED LEUKOCYTES BY MANUAL COUNT Normal [facility] Comment on above: Performed By: #### L [id number], [id number] ####Flame Channeler: TRESSA SANTIZO ([phone])[facility] ([facility])[address] [place] [address] No Panel InformationOrdered By: Daniel Allen on 04-22-2024 Interpretation and review of laboratory results Abnormal [facility] No Panel Informationon 04-22 Interpretation and review of laboratory results Normal [facility] Performed by: [facility], [address] [place] [address] CLIA ID: [id number] [facility] Interpretation and review of laboratory results Abnormal [facility] Atypical Lymphocytes Manual [facility] Bands Manual [facility] Basophils Manual 2 [facility] Blasts Manual [facility] Eosinophils Manual 3 High 0 - 1 [facility] Interpretation and review of laboratory results Abnormal [facility] Lymphocytes Manual 38 [facility] Metamyelocytes Manual [facility] Monocytes Manual 1 [facility] Myelocytes Manual [facility] Neutrophils Manual 56 [facility] Promyelocytes Manual [facility] Unclassified Cells, Manual [facility] COCAINE METAB. SCREEN Negative [facility] The expected value f or all of the drugs listed above is Negative. The following drugs or drug groups have been screened for by Immunoassay at the following thresholds: Amphetamine class (1000 ng/mL) Barbiturates (200 ng/mL) Benzodiazepines (200 ng/mL) Cocaine (300 ng/mL) Methadone (300 ng/mL) Opiates (300 ng/mL) Oxycodone (100 ng/mL) PCP (25 ng/mL) NOTE: These results are for medical treatment only. Analysis performed using non-forensic procedures. POSITIVE results are NOT confirmed by a more specific alternative method unless requested. If confirmation is needed, request confirmation under separate order. [facility] Interpretation and review of laboratory results Abnormal [facility] No Panel InformationOrdered By: Dee Viramontes on 04-22-2024 Interpretation and review of laboratory results Abnormal [facility] OSMOLALITY, URINE 154 Low [facility] OSMOLALITY, SERUMon 04-22-20 24 OSMOLALITY, SERUM 333 mOsm/kg High 280-300 [facility] Comment on above: Performed By: #### L [id number] ####Flame Channeler: TRESSA SANTIZO ([phone])[facility])[address] OSMOLALITY, URINEon 04-22-20 24 OSMOLALITY, URINE 154 mOsm/kg Low 300-1000 [facility] Comment on above: Performed By: #### L [id number], [id number], [id number] ####Flame Channeler: TRESSA SANTIZO ([phone])[facility] ([facility])[address] [place] [address] Progress Noteon 04-22-2024 Progress Note Normal [facility] SARS-COV-2 ANTIGENon 024 SARS-COV-2 ANTIGEN Normal [facility] Comment on above: Performed By: #### L [id number] ####Flame Channeler: TRESSA SANTIZO ([phone])[facility])[address] SARS-CoV-2 (COVID-19) Ag IA. rapid Ql (Resp)Ordered By: Aylin Moran on 04-22-2024 Interpretation and review of laboratory results Normal [facility] SODIUM, URINE, RANDOMon -0 Sodium (U) [Moles/Vol] 7 mmol/L Low 30-90 [facility] Comment on above: Performed By: #### L [id number], [id number], [id number] ####Flame Channeler: TRESSA SANTIZO ([phone])[facility] ([facility])[address] [place] [address] Urinalysis complete panel (U )on 04-22-2024 Bilirubin Ql (U) Negative Negative mg/dL [facility] Clarity (U) Clear Clear [facility] Color (U) Colorless Lt. Yellow [facility] Glucose Ql (U) Normal Normal (<70) mg/dL [facility] Hemoglobin Ql (U) Negative Negative mg/dL [facility] Interpretation and review of laboratory results Abnormal [facility] Ketones (U) [Mass/Vol] Negative Negat zenia mg/dL [facility] Leukocyte esterase Test strip Ql (U) Negative Negative Emma/uL [facility] Nitrite Ql (U) Negative Negative [facility] pH (U) 5.5 [pH] 5.0 - 8.0 pH [facility] Protein (U) [Mass/Vol] Negative Negat zenia mg/dL [facility] Specific gravity (U) [Rel density] 1.003 Low 1.005 - 1.030 [facility] Urobilinogen (U) [Mass/Vol] Normal Normal (0-1) mg/dL [facility] ALCOHOL, MEDICALon ALCOHOL MEDICAL < Normal <10.0 [facility] Comment on above: Result Comment: Alco hol cutoff: <10.00 mg/dL = None Detected Performed By: #### [id number] #### [facility] [address] [place] [address] Eunice Rodriguez M.D. [id number] BASIC METABOLIC PANELon 03-20 Anion gap [Moles/Vol] 17 mmol/L Normal 10-20 [facility] Comment on above: Order Comment: [facility] has implemented the eGFR calculation approach that does not have a coefficient for race that conforms to the NKF-ASN Task Force Recommendations. Performed By: #### 4 [id number] #### [facility] [address] [place], [place] [address] Eunice Rodriguez M.D. [id number] Calcium [Mass/Vol] 9.7 mg/dL Normal 8.4-10.2 [facility] Comment on above: Order Comment: [facility] has implemented the eGFR calculation approach that does not have a coefficient for race that conforms to the NKF-ASN Task Force Recommendations. Performed By: #### 4 [id number] #### [facility] [address] [place], [place] [address] Eunice Rodriguez M.D. [id number] Chloride [Moles/Vol] 103 mmol/L Normal 98-108 [facility] Comment on above: Order Comment: [facility] has implemented the eGFR calculation approach that does not have a coefficient for race that conforms to the NKF-ASN Task Force Recommendations. Performed By: #### 4 [id number] #### [facility] [address] [place], [place] [address] Eunice Rodriguez M.D. [id number] Creatinine [Mass/Vol] 1.01 mg/dL Normal 0.80-1.30 [facility] Comment on above: Order Comment: [facility] has implemented the eGFR calculation approach that does not have a coefficient for race that conforms to the NKF-ASN Task Force Recommendations. Performed By: #### 4 [id number] #### [facility] [address] [place], [place] [address] Eunice Rodriguez M.D. [id number] EGFR 83 mL/min/1.73 m2 Normal >=60 [facility] Comment on above: Order Comment: [facility] has implemented the eGFR calculation approach that does not have a coefficient for race that conforms to the NKF-ASN Task Force Recommendations. Result Comment: Brie mated GFR was calculated using the 2020 CKD-EPI creatinine equation. Performed By: #### 4 [id number] #### [facility] [address] [place], [place] [address] Eunice Rodriguez M.D. [id number] Glucose [Mass/Vol] 101 mg/dL High 65-99 [facility] Comment on above: Order Comment: [facility] has implemented the eGFR calculation approach that does not have a coefficient for race that conforms to the NKF-ASN Task Force Recommendations. Performed By: #### 4 6124 #### [facility] [address] [place], [place] [address] Eunice Rodriguez M.D. [id number] HCO3 (Bld) [Moles/Vol] 24 mmol/L Normal 21-32 [facility] Comment on above: Order Comment: [facility] has implemented the eGFR calculation approach that does not have a coefficient for race that conforms to the NKF-ASN Task Force Recommendations. Performed By: #### 4 6124 #### [facility] [address] [place], [place] [address] Eunice Rodriguez M.D. [id number] Potassium [Moles/Vol] 4.0 mmol/L Normal 3.5-5.1 [facility] Comment on above: Order Comment: [facility] has implemented the eGFR calculation approach that does not have a coefficient for race that conforms to the NKF-ASN Task Force Recommendations. Performed By: #### 4 [id number] #### [facility] [address] [place], [place] [address] Eunice Rodriguez M.D. [id number] Sodium [Moles/Vol] 140 mmol/L Normal 135-145 [facility] Comment on above: Order Comment: [facility] has implemented the eGFR calculation approach that does not have a coefficient for race that conforms to the NKF-ASN Task Force Recommendations. Performed By: #### 4 6124 #### [facility] [address] [place], [place] [address] Eunice Rodriguez M.D. [id number] Urea nitrogen [Mass/Vol] 8 mg/dL Normal 8-25 [facility] Comment on above: Order Comment: [facility] has implemented the eGFR calculation approach that does not have a coefficient for race that conforms to the NKF-ASN Task Force Recommendations. Performed By: #### 4 6124 #### [facility] [address] [place], [place] [address] Eunice Rodriguez M.D. [id number] Urea nitrogen/Creatinine [Mass ratio] 7.9 mg/mg Low 10.0-20.0 [facility] Comment on above: Order Comment: [facility] has implemented the eGFR calculation approach that does not have a coefficient for race that conforms to the NKF-ASN Task Force Recommendations. Performed By: #### 4 [id number] #### [facility] [address] [place] [address] Eunice Rodriguez M.D. [id number] CBC WITH AUTO DIFFERENTIALon 04-09-2024 AUTO NRBC 0.0 % Normal [facility] Comment on above: Performed By: #### L [id number] #### [facility] [address] [place] [address] Eunice Rodriguez M.D. [id number] AUTO NRBC ABS COUNT 0.00 K/mcL Normal 0.00-0.00 [facility] Comment on above: Performed By: #### L [id number] #### [facility] [address] [place] [address] Eunice Rodriguez M.D. [id number] BASOPHILS ABSOLUTE COUNT 0.03 K/mcL Normal 0.00-0.30 [facility] Comment on above: Performed By: #### L [id number] #### [facility] [address] [place] [address] Eunice Rodriguez M.D. [id number] Basophils/100 WBC (Bld) 0.5 % Normal [facility] Comment on above: Performed By: #### L [id number] #### [facility] [address] [place] [address] Eunice Rodriguez M.D. [id number] Eosinophils (Bld) [#/Vol] 0.05 10*3/uL Normal 0.00-0.50 [facility] Comment on above: Performed By: #### L [id number] #### [facility] [address] [place] [address] Eunice Rodriguez M.D. [id number] Eosinophils/100 WBC (Bld) 0.9 % [facility] Comment on above: Performed By: #### L [id number] #### [facility] [address] [place] [address] Eunice Rodriguez M.D. [id number] Erythrocyte distribution width (RBC) [Ratio] 15.2 % High 11.6-14.8 [facility] Comment on above: Performed By: #### L [id number] #### [facility] [address] [place] [address] Eunice Rodriguez M.D. [id number] Hematocrit (Bld) [Volume fraction] 37.1 % Low 41.0-53.0 [facility] Comment on above: Performed By: #### L [id number] #### [facility] [address] [address] Eunice Rodriguez M.D. [id number] Hemoglobin (Bld) [Mass/Vol] 12.4 g/dL Low 13.5-17.5 [facility] Comment on above: Performed By: #### L [id number] #### [facility] [address] [place] [address] Eunice Rodriguez M.D. [id number] IG ABSOLUTE 0.04 K/mcL Normal 0.00-0.30 [facility]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 tablet 15 mg PO QHS 04/05/24 04/02/24 History sodium chloride 1,000 mg soluble 1,000 mg PO BID 04/05/24 Unknown History tablet tizanidine 4 mg tablet 4 mg PO Q6H 04/05/24 04/02/24 History Allergy/AdvReac Type Severity Reaction Status Date / Time allopurinol Allergy Intermediate Other Verified 04/05/24 15:08 codeine Allergy Intermediate Other Verified 04/05/24 15:08 Penicillins Allergy Intermediate Other Verified 04/05/24 15:08 Family History Father Prostate cancer History of quadruple bypass Myocardial infarction Surgical History (more content not included)... Normal [facility] Magnesiumon 04-05-2024 Magnesium [Mass/Vol] 1.2 mg/dL Low 1.6-2.6 [facility] Comment on above: Performed By: #### L 501.5300, L501.5200 #### [facility] [address] [place], [place], [address] No Panel Informationon 04-05 P [place] 60 degrees [facility] [place] Interval 188 ms [facility] QRS [place] -49 degrees [facility] QRSD Interval 144 ms [facility] QT Interval 404 ms [facility] QTC Interval 503 ms [facility] T Wave [place] 11 degrees [facility] SINUS RHYTHM RBBB AND LAFB Compared to ECG 01/19/24 No significant change Electronically Signed On 04-05-2024 01:10:01 EDT by Rubén Hopkins D O - 04/05/2024 IMPRESSION: SINUS RHYTHM RBBB AND LAFB Compared to ECG 01/19/24 No significant change Electronically Signed On 04-05-2024 01:10:01 EDT by Rubén Hoang [facility] Phosphoruson 04-05-2024 Phosphate [Mass/Vol] 1.7 mg/dL Low 2.5-4.9 [facility] Comment on above: Performed By: #### L 501.5300, L501.5200 #### [facility] [address] [place], [place], [id number] Prothrombin Time w/INRon INR Coag (PPP) [Relative time] 1.1 {INR} Normal [facility] Comment on above: Performed By: #### L 505.5000, L501.9100, L500.4050, L100.0100, L300.3900 #### [facility] [address] [place], [address] PT Coag (PPP) [Time] 13.8 s Normal 11.7-14.9 [facility] Comment on above: Performed By: #### L 505.5000, L501.9100, L500.4050, L100.0100, L300.3900 #### [facility] [address] [place], [address] Sodium Levelon 04-05-2024 Sodium [Moles/Vol] 135 mmol/L Low 136-145 [facility] Comment on above: Performed By: #### L 501.5300, L501.5200 #### [facility] Laboratory [address] [place], [address] Urine Drug Screen (VISTA)on 04-05-2024 AMPHETAMINES Negative Normal <1000 ng/mL [facility] Comment on above: Performed By: #### L 505.5000, L501.9100, L500.4050, L100.0100, L300.3900 #### [facility] Laboratory [address] [place], [address] BARBITIURATES Negative Normal < 200 ng/mL [facility] Comment on above: Performed By: #### L 505.5000, L501.9100, L500.4050, L100.0100, L300.3900 #### [facility] Laboratory [address] [place], [address] BENZODIAZIPINE Negative Normal < 200 ng/mL [facility] Comment on above: Performed By: #### L 505.5000, L501.9100, L500.4050, L100.0100, L300.3900 #### [facility] Laboratory [address] [place], [address] COCAINE Negative Normal < 300 ng/mL [facility] Comment on above: Performed By: #### L 505.5000, L501.9100, L500.4050, L100.0100, L300.3900 #### [facility] Laboratory [address] [place], [address] ECSTACY Negative Normal < 500 ng/mL [facility] Comment on above: Performed By: #### L 505.5000, L501.9100, L500.4050, L100.0100, L300.3900 #### [facility] Laboratory [address] [place], [place], [facility] METHADONE Negative Normal < 300 ng/mL [facility] Comment on above: Performed By: #### L 505.5000, L501.9100, L500.4050, L100.0100, L300.3900 #### [facility] [address] [place], [address] OPIATES Negative Normal < 300 ng/mL [facility] Comment on above: Performed By: #### L 505.5000, L501.9100, L500.4050, L100.0100, L300.3900 #### [facility] Laboratory [address] [place], [address] PCP Negative Normal < 25 ng/mL [facility] Comment on above: Performed By: #### L 505.5000, L501.9100, L500.4050, L100.0100, L300.3900 #### [facility] [address] [place], [place], [facility] THC Positive Abnormal < 50 ng/mL [facility] Comment on above: Performed By: #### L 505.5000, L501.9100, L500.4050, L100.0100, L300.3900 #### [facility] Laboratory [address] [place], [address] VISTA UDS PH [address] [facility] Comment on above: Performed By: #### L 505.5000, L501.9100, L500.4050, L100.0100, L300.3900 #### [facility] Laboratory [address] [place], [address] Vital signson 04-05-2024 Heart rate 93 /min bpm [facility] BETA HYDROXYBUTYRATEon 04-04 BETA HYDROXYBUTYRATE 2.29 mg/dL Normal 0.20-2.81 [facility] Comment on above: Performed By: #### L [id number], [id number], [id number], [id number] ####Flame Channeler: ARA WRIGHT ([phone])[facility] (SWRLAB)[address] [place] [address] [place] BLOOD GAS, VENOUS (SWR AND S HC)on 04-04-2024 BASE EXCESS (MMOL/L) IN VENOUS BLOOD -8.0 mmol/L Low -3.0-3.0 [facility] Comment on above: Performed By: #### L [id number] ####Flame Channeler: ARA WRIGHT ([phone])[facility] (SWRLAB)[address] [place] [address] [place] CARBON DIOXIDE (MM HG) IN VENOUS BLOOD 35 mm(Hg) Low 40-55 [facility] Comment on above: Performed By: #### L [id number] ####Flame Channeler: ARA WRIGHT ([phone])[facility] (SWRLAB)[address] [place] [address] [place] CO2 [Moles/Vol] 19.0 mmol/L Low 24.0-28.0 [facility] Comment on above: Performed By: #### L [id number] ####Flame Channeler: ARA WRIGHT ([phone])[facility] (SWRLAB)[address] [place] [address] [place] HCO3 (Bld) [Moles/Vol] 17.9 mmol/L Low 23.0-27.0 [facility] Comment on above: Performed By: #### L [id number] ####Flame Channeler: ARA WRIGHT ([phone])[facility] (SWRLAB)[address] [place] [address] OXYGEN (MM HG) IN VENOUS BLOOD 31 mm(Hg) Normal [facility] Comment on above: Performed By: #### L [id number] ####Flame Channeler: ARA WRIGHT ([phone])[facility] (SWRLAB)[address] [place] [address] OXYGEN SATURATION (%) IN VENOUS BLOOD 56.0 % Low 60.0-80.0 [facility] Comment on above: Performed By: #### L [id number] ####Flame Channeler: ARA WRIGHT ([phone])[facility] (SWRLAB)[address] [place] [address] pH (Bld) 7.323 [pH] Normal 7.310-7.410 [facility] Comment on above: Performed By: #### L [id number] ####Flame Channeler: ARA WRIGHT ([phone])[facility] (SWRLAB)[address] [place] [address] SOURCE OF OXYGEN Room Air Normal [facility] Comment on above: Performed By: #### L [id number] ####Flame Channeler: ARA WRIGHT ([phone])[facility] (SWRLAB)[address] [place] [address] CBC W Auto Differential pane l (Bld)on 04-04-2024 Basophils (Bld) [#/Vol] 0.0 10*3/uL 0.0 - 0.2 10*3/uL [facility] Basophils/100 WBC (Bld) 0.6 % 0.0 - 2.0 % [facility] Eosinophils (Bld) [#/Vol] 0.0 10*3/uL 0.0 - 0.5 10*3/uL [facility] Eosinophils/100 WBC (Bld) 0.2 % 0.0 - 6.0 % [facility] Erythrocyte distribution width (RBC) [Ratio] 14.0 % 11.5 - 15.0 % [facility] Hematocrit (Bld) [Volume fraction] 31.7 % Low 40.0 - 52.0 % [facility] Hemoglobin (Bld) [Mass/Vol] 11.2 g/dL Low 13.0 - 18.0 g/dL [facility] [employer] Immature granulocytes (Bld) [#/Vol] 0.0 10*3/uL NINF - 0.1 10*3/uL [facility] [employer] Immature granulocytes/100 WBC (Bld) 0.2 % 0.0 - 2.0 % [facility] Interpretation and review of laboratory results Abnormal [facility] IPF 1 [facility] Lymphocytes (Bld) [#/Vol] 1.8 10*3/uL 1.0 - 4.3 10*3/uL [facility] Lymphocytes/100 WBC (Bld) 38.2 % 15.0 - 45.0 % [facility] MCH (RBC) [Entitic mass] 31.1 pg 26.0 - 34.0 pg [facility] MCHC (RBC) [Mass/Vol] 35.3 % 30.5 - 36.0 % [facility] MCV (RBC) [Entitic vol] 88.1 fL 77.0 - 99.0 fL [facility] [employer] Monocytes (Bld) [#/Vol] 0.5 10*3/uL 0.0 - 0.9 10*3/uL [facility] Monocytes/100 WBC (Bld) 10.3 % 5.0 - 13.0 % [facility] Neutrophils (Bld) [#/Vol] 2.4 10*3/uL 1.8 - 7.5 10*3/uL [facility] Neutrophils/100 WBC (Bld) 50.5 % 38.0 - 82.0 % [facility] Nucleated RBC/100 WBC (Bld) [Ratio] 0.0 % [facility] Platelet mean volume (Bld) [Entitic vol] 8.4 fL Low 9.0 - 12.7 fL [facility] [employer] Platelets (Bld) [#/Vol] 110 10*3/uL Low 140 - 440 10*3/uL [facility] RBC (Bld) [#/Vol] 3.60 10*6/uL Low 4.40 - 5.9 0 10*6/uL [facility] WBC (Bld) [#/Vol] 4.7 10*3/uL 3.6 - 10.7 10*3/uL [facility] CBC WITH AUTO DIFFERENTIALon 04-04-2024 Basophils (Bld) [#/Vol] 0.0 10*3/uL Normal 0.0-0.2 [facility] Comment on above: Performed By: #### L [id number] ####Flame Channeler: ARA WRIGHT ([phone])[facility] (SWRLAB)[address] [place] [address] Basophils/100 WBC (Bld) 0.6 % Normal 0.0-2.0 [facility] Comment on above: Performed By: #### L [id number] ####Flame Channeler: ARA WRIGHT ([phone])[facility] (SWRLAB)[address] [place] [address] Eosinophils (Bld) [#/Vol] 0.0 10*3/uL Normal 0.0-0.5 [facility] Comment on above: Performed By: #### L [id number] ####Flame Channeler: ARA WRIGHT ([phone])[facility] (SWRLAB)[address] [place] [address] Eosinophils/100 WBC (Bld) 0.2 % Normal 0.0-6.0 [facility] Comment on above: Performed By: #### L [id number] ####Flame Channeler: ARA WRIGHT ([phone])[facility] (SWRLAB)[address] [place] [address] Erythrocyte distribution width (RBC) [Ratio] 14.0 % Normal 11.5-15.0 [facility] Comment on above: Performed By: #### L [id number] ####Flame Channeler: ARA WRIGHT ([id number])[facility] (SWRLAB)[address] [place] [address] Hematocrit (Bld) [Volume fraction] 31.7 % Low 40.0-52.0 [facility] Comment on above: Performed By: #### L [id number] ####Flame Channeler: ARA WRIGHT ([phone])HANNA DUNC[facility]TM[facility] (SWRLAB)[address] [place] [address] Hemoglobin (Bld) [Mass/Vol] 11.2 g/dL Low 13.0-18.0 [facility] Comment on above: Performed By: #### L [id number] ####Flame Channeler: ARA WRIGHT ([phone])[facility] (SWRLAB)[address] [place] [address] IMMATURE GRANS % 0.2 % Normal 0.0-2.0 [facility] Comment on above: Performed By: #### L [id number] ####Flame Channeler: ARA WRIGHT ([phone])[facility] (SWRLAB)[address] [place] [address] IMMATURE GRANS ABSOLUTE 0.0 10*3/uL Normal <0.1 [facility] Comment on above: Performed By: #### L [id number] ####Flame Channeler: ARA WRIGHT ([phone])[facility] (SWRLAB)[address] [place] [address] [place] IPF 1 Normal [facility] Comment on above: Performed By: #### L [id number] ####Flame Channeler: ARA WRIGHT ([phone])[facility] (SWRLAB)[address] [place] [address] [place] Lymphocytes (Bld) [#/Vol] 1.8 10*3/uL Normal 1.0-4.3 [facility] Comment on above: Performed By: #### L [id number] ####Flame Channeler: ARA WRIGHT ([phone])[facility] (SWRLAB)[address] [place] [address] Lymphocytes/100 WBC (Bld) 38.2 % Normal 15.0-45.0 [facility] Comment on above: Performed By: #### L [id number] ####Flame Channeler: ARA WRIGHT ([phone])[facility] (SWRLAB)[address] [place] [address] MCH (RBC) [Entitic mass] 31.1 pg Normal 26.0-34.0 [facility] Comment on above: Performed By: #### L [id number] ####Flame Channeler: ARA WRIGHT ([phone])[facility] (SWRLAB)[address] [place] [address] MCHC 35.3 % Normal 30.5-36.0 [facility] Comment on above: Performed By: #### L [id number] ####Flame Channeler: ARA WRIGHT ([phone])[facility] (SWRLAB)[address] [place] [address] MCV (RBC) [Entitic vol] 88.1 fL Normal 77.0-99.0 [facility] Comment on above: Performed By: #### L [id number] ####Flame Channeler: ARA WRIGHT ([phone])[facility] (SWRLAB)[address] [place] [address] Monocytes (Bld) [#/Vol] 0.5 10*3/uL Normal 0.0-0.9 [facility] Comment on above: Performed By: #### L [id number] ####Flame Channeler: ARA WRIGHT ([phone])[facility] (SWRLAB)[address] [place] [address] [place] Monocytes/100 WBC (Bld) 10.3 % Normal 5.0-13.0 [facility] Comment on above: Performed By: #### L [id number] ####Flame Channeler: ARA WRIGHT ([phone])[facility] (SWRLAB)[address] [place] [address] NEUTROPHILS ABSOLUTE 2.4 10*3/uL Normal 1.8-7.5 [facility] Comment on above: Performed By: #### L [id number] ####Flame Channeler: ARA WRIGHT ([phone])HANNA DUNC[facility] RITTMAN (SWRLAB)[address] [place] [address] [place] Neutrophils/100 WBC (Bld) 50.5 % Normal 38.0-82.0 [facility] Comment on above: Performed By: #### L [id number] ####Flame Channeler: ARA WRIGHT ([phone])HANNA DUNC[facility] RITTMAN (SWRLAB)[address] [place] [address] [place] NRBC 0.0 /100 WBCs Normal 0.0-2.0 [facility] Comment on above: Performed By: #### L [id number] ####Flame Channeler: ARA WRIGHT ([phone])[facility]NA DUNC[facility] R[facility]TMAN (SWRLAB)[address] [place] [address] [place] Platelet mean volume (Bld) [Entitic vol] 8.4 fL Low 9.0-12.7 [facility] Comment on above: Performed By: #### L [id number] ####Flame Channeler: ARA WRIGHT ([phone])[facility]UNC[facility] R[facility]TMAN (SWRLAB)[address] [place] [address] [place] Platelets (Bld) [#/Vol] 110 10*3/uL Low 140-440 [facility] Comment on above: Performed By: #### L [id number] ####Flame Channeler: ARA WRIGHT ([phone])[facility] (SWRLAB)[address] [place] [address] [place] RBC (Bld) [#/Vol] 3.60 10*6/uL Low 4.40-5.90 [facility] Comment on above: Performed By: #### L [id number] ####Flame Channeler: ARA WRIGHT ([phone])[facility] (SWRLAB)[address] [place] [address] [place] WBC (Bld) [#/Vol] 4.7 10*3/uL Normal 3.6-10.7 [facility] Comment on above: Performed By: #### L [id number] ####Flame Channeler: ARA WRIGHT ([phone])[facility] GUSTAFSONTMAN (SWRLAB)[address] COMPREHENSIVE METABOLIC PANE Peter 04-04-2024 Albumin [Mass/Vol] 4.2 g/dL Normal 3.5-5.0 [facility] Comment on above: Performed By: #### L AB46, [id number], [id number], LAB17 ####Flame Channeler: ARA WRIGHT ([phone])[facility] (SWRLAB)[address] [place] [address] ALP [Catalytic activity/Vol] 67 U/L Normal 38-126 [facility] Comment on above: Performed By: #### L AB46, [id number], [id number], LAB17 ####Flame Channeler: ARA WRIGHT ([phone])[facility] (SWRLAB)[address] [place] [address] ALT [Catalytic activity/Vol] 17 U/L Normal 0-49 [facility] Comment on above: Performed By: #### L AB46, [id number], [id number], LAB17 ####Flame Channeler: ARA WRIGHT ([phone])[facility] (SWRLAB)[address] [place] [address] Anion gap [Moles/Vol] 14 mmol/L High 3-13 [facility] Comment on above: Performed By: #### L AB46, [id number], [id number], LAB17 ####Flame Channeler: ARA WRIGHT ([phone])[facility] (SWRLAB)[address] AST [Catalytic activity/Vol] 39 U/L Normal 15-46 [facility] Comment on above: Performed By: #### L AB46, [id number], [id number], LAB17 ####Flame Channeler: ARA WRIGHT ([phone])[facility] (SWRLAB)[address] [place] [address] [place] Bilirubin [Mass/Vol] 1.0 mg/dL Normal 0.2-1.3 [facility] Comment on above: Performed By: #### L AB46, [id number], [id number], LAB17 ####Flame Channeler: ARA WRIGHT ([phone])[facility] (SWRLAB)[address] [place] [address] Calcium [Mass/Vol] 8.8 mg/dL Normal 8.4-10.4 [facility] Comment on above: Performed By: #### Popeye AB46, [id number], [id number], LAB17 ####Flame Channeler: ARA WRIGHT ([phone])[facility] (SWRLAB)[address] [place] [address] [place] Chloride [Moles/Vol] 98 mmol/L Normal 98-107 [facility] Comment on above: Performed By: #### L 46, [id number], [id number], LAB17 ####Flame Channeler: ARA WRIGHT ([id number])[facility] (SWRLAB)[address] [place] [address] [place] CO2 [Moles/Vol] 16 mmol/L Low 22-30 [facility] Comment on above: Performed By: #### L AB46, [id number], [id number], LAB17 ####Flame Channeler: ARA WRIGHT ([phone])[facility] (SWRLAB)[address] [place] [address] [place] Creatinine [Mass/Vol] 0.92 mg/dL Normal 0.66-1.25 [facility] Comment on above: Performed By: #### L AB46, [id number], [id number], LAB17 ####Flame Channeler: ARA WRIGHT ([phone])[facility] (SWRLAB)[address] GLOMERULAR FILTRATION RATE ML/MIN/1.73 SQ M.PREDICTED >90.0 Normal >60.0 [facility] Comment on above: Result Comment: Calc ulation based on the Chronic Kidney Disease Epidemiology Collaboration (CKD-EPI) equation refit without adjustment for race Performed By: #### L AB46, [id number], [id number], LAB17 ####Flame Channeler: ARA WRIGHT ([phone])[facility] (SWRLAB)[address] [place] [address] [place] Glucose [Mass/Vol] 97 mg/dL Normal 70-100 [facility] Comment on above: Performed By: #### L AB46, [id number], [id number], LAB17 ####Flame Channeler: ARA WRIGHT ([phone])[facility] (SWRLAB)[address] [place] [address] [place] Potassium [Moles/Vol] 3.5 mmol/L Normal 3.5-5.1 [facility] Comment on above: Performed By: #### L AB46, [id number], [id number], LAB17 ####Flame Channeler: ARA WRIGHT ([phone])[facility] (SWRLAB)[address] [place] [address] [place] Protein [Mass/Vol] 7.2 g/dL Normal 6.3-8.2 [facility] Comment on above: Performed By: #### L AB46, [id number], [id number], LAB17 ####Flame Channeler: ARA WRIGHT ([phone])[facility] (SWRLAB)[address] [place] [address] [place] Sodium [Moles/Vol] 128 mmol/L Low 135-145 [facility] Comment on above: Performed By: #### L AB46, [id number], [id number], LAB17 ####Flame Channeler: ARA WRIGHT ([id number])[facility] IRISAN (SWRLAB)[address] Urea nitrogen [Mass/Vol] 8 mg/dL Low 9-20 [facility] Comment on above: Performed By: #### L AB46, [id number], [id number], LAB17 ####Flame Channeler: ARA WRIGHT ([phone])[facility] SJMARILYN (SWRLAB)[address] CERVICAL SPINE WO IV CONT RASTon 04-04-2024 CT CERVICAL SPINE WO IV CONTRAST Normal [facility] CT Cervical spine WO contras ton 04-04-2024 Patient Name: [facility] NI : 1960 [id number] Exam Date/Time: 04/04/2024 16:40 Procedure: CT CERVICAL SPINE WO IV CONTRAST Ordering Provider: LO MARK Reason For Exam: Neck trauma, intoxicated or obtunded (Age >= 16y) CT HEAD: CLINICAL INDICATION: Trauma TECHNIQUE: Transaxial CT sequence performed through the head with 3 mm reconstruction. Sagittal and Coronal reconstruction images included. Dose reduction employed with automated exposure control. COMPARISON: 06/30/2023 FINDINGS: Ventricles and Extra-axial spaces: Generalized enlargement of the ventricles and sulci is noted. No abnormal extracerebral collection identified. Cerebral and cerebellar parenchyma: Periventricular low attenuation areas are noted bilaterally, corresponding to chronic microvascular ischemic change. Focal encephalomalacia seen in the anterior left temporal lobe. No additional focal mass lesion or evidence for acute infarct is identified throughout the cerebrum or cerebellum. Brainstem: Normal Visualized Paranasal sinuses: Normal. Mastoid air cells: Normal Visualized Orbits: Normal Calvarium and skull base: Normal CT CERVICAL SPINE: TECHNIQUE: Transaxial sequence through the cervical spine. Coronal and sagittal reconstructions included. Dose reduction was employed with automated exposure control. COMPARISON: 06/30/2023 FINDINGS: Cervical vertebrae and joints: No fracture, subluxation or other malalignment. Normal cervical lordosis is observed. Multilevel facet and uncovertebral joint arthropathy is observed. No suspicious osseous lesion identified. Intervertebral disc spaces and spinal canal: Multilevel discogenic degenerative changes of the cervical spine is noted with anterior predominant osteophytosis observed. This is noted particularly at C5-C6. No bony encroachment upon the cervical spinal canal. Soft tissues: Surrounding soft tissues of the neck are unremarkable on this noncontrast study. Other: Lung apices are unremarkable. [facility] Don Melara MD - 04/04/2024 Patient Name: WOODY NI : 1960 [id number] Exam Date/Time: 04/04/2024 16:40 Procedure: CT CERVICAL SPINE WO IV CONTRAST Ordering Provider: LO MARK Reason For Exam: Neck trauma, intoxicated or obtunded (Age >= 16y) CT HEAD: CLINICAL INDICATION: Trauma TECHNIQUE: Transaxial CT sequence performed through the head with 3 mm reconstruction. Sagittal and Coronal reconstruction images included. Dose reduction employed with automated exposure control. COMPARISON: 06/30/2023 FINDINGS: Ventricles and Extra-axial spaces: Generalized enlargement of the ventricles and sulci is noted. No abnormal extracerebral collection identified. Cerebral and cerebellar parenchyma: Periventricular low attenuation areas are noted bilaterally, corresponding to chronic microvascular ischemic change. Focal encephalomalacia seen in the anterior left temporal lobe. No additional focal mass lesion or evidence for acute infarct is identified throughout the cerebrum or cerebellum. Brainstem: Normal Visualized Paranasal sinuses: Normal. Mastoid air cells: Normal Visualized Orbits: Normal Calvarium and skull base: Normal CT CERVICAL SPINE: TECHNIQUE: Transaxial sequence through the cervical spine. Coronal and sagittal reconstructions included. Dose reduction was employed with automated exposure control. COMPARISON: 06/30/2023 FINDINGS: Cervical vertebrae and joints: No fracture, subluxation or other malalignment. Normal cervical lordosis is observed. Multilevel facet and uncovertebral joint arthropathy is observed. No suspicious osseous lesion identified. Intervertebral disc spaces and spinal canal: Multilevel discogenic degenerative changes of the cervical spine is noted with anterior predominant osteophytosis observed. This is noted particularly at C5-C6. No bony encroachment upon the cervical spinal canal. Soft tissues: Surrounding soft tissues of the neck are unremarkable on this noncontrast study. Other: Lung apices are unremarkable. IMPRESSION: Diminished cerebral volume and evidence of chronic microvascular ischemic change without acute intracranial abnormality. Focal encephalomalacia of the anterior left temporal lobe suggesting old ischemic change or infarct. No acute abnormality identified throughout the cervical spine. Multilevel degenerative changes of the cervical spine as discussed. Report Dictated on Electronically Signed By: Don Melara MD Electronically Signed Date/Time: 04/04/2024 4:53 PM EDT [facility] Radiology Study observation (narrative) [facility] CT HEAD WO IV CONTRASTon CT HEAD WO IV CONTRAST Normal [facility] CT Head WO contraston 2023 Patient Name: WOODY NI : 1960 Exam Date/Time: 04/04/2024 16:40 Procedure: CT HEAD WO IV CONTRAST Ordering Provider: LO MARK Reason For Exam: Head trauma, moderate-severe CT HEAD: CLINICAL INDICATION: Trauma TECHNIQUE: Transaxial CT sequence performed through the head with 3 mm reconstruction. Sagittal and Coronal reconstruction images included. Dose reduction employed with automated exposure control. COMPARISON: 06/30/2023 FINDINGS: Ventricles and Extra-axial spaces: Generalized enlargement of the ventricles and sulci is noted. No abnormal extracerebral collection identified. Cerebral and cerebellar parenchyma: Periventricular low attenuation areas are noted bilaterally, corresponding to chronic microvascular ischemic change. Focal encephalomalacia seen in the anterior left temporal lobe. No additional focal mass lesion or evidence for acute infarct is identified throughout the cerebrum or cerebellum. Brainstem: Normal Visualized Paranasal sinuses: Normal. Mastoid air cells: Normal Visualized Orbits: Normal Calvarium and skull base: Normal CT CERVICAL SPINE: TECHNIQUE: Transaxial sequence through the cervical spine. Coronal and sagittal reconstructions included. Dose reduction was employed with automated exposure control. COMPARISON: 06/30/2023 FINDINGS: Cervical vertebrae and joints: No fracture, subluxation or other malalignment. Normal cervical lordosis is observed. Multilevel facet and uncovertebral joint arthropathy is observed. No suspicious osseous lesion identified. Intervertebral disc spaces and spinal canal: Multilevel discogenic degenerative changes of the cervical spine is noted with anterior predominant osteophytosis observed. This is noted particularly at C5-C6. No bony encroachment upon the cervical spinal canal. Soft tissues: Surrounding soft tissues of the neck are unremarkable on this noncontrast study. Other: Lung apices are unremarkable. [facility] Don Melara MD - 04/04/2024 Patient Name: WOODY NI : 1960 [facility]#: [id number] Exam Date/Time: 04/04/2024 16:40 Procedure: CT HEAD WO IV CONTRAST Ordering Provider: LO MARK Reason For Exam: Head trauma, moderate-severe CT HEAD: CLINICAL INDICATION: Trauma TECHNIQUE: Transaxial CT sequence performed through the head with 3 mm reconstruction. Sagittal and Coronal reconstruction images included. Dose reduction employed with automated exposure control. COMPARISON: 06/30/2023 FINDINGS: Ventricles and Extra-axial spaces: Generalized enlargement of the ventricles and sulci is noted. No abnormal extracerebral collection identified. Cerebral and cerebellar parenchyma: Periventricular low attenuation areas are noted bilaterally, corresponding to chronic microvascular ischemic change. Focal encephalomalacia seen in the anterior left temporal lobe. No additional focal mass lesion or evidence for acute infarct is identified throughout the cerebrum or cerebellum. Brainstem: Normal Visualized Paranasal sinuses: Normal. Mastoid air cells: Normal Visualized Orbits: Normal Calvarium and skull base: Normal CT CERVICAL SPINE: TECHNIQUE: Transaxial sequence through the cervical spine. Coronal and sagittal reconstructions included. Dose reduction was employed with automated exposure control. COMPARISON: 06/30/2023 FINDINGS: Cervical vertebrae and joints: No fracture, subluxation or other malalignment. Normal cervical lordosis is observed. Multilevel facet and uncovertebral joint arthropathy is observed. No suspicious osseous lesion identified. Intervertebral disc spaces and spinal canal: Multilevel discogenic degenerative changes of the cervical spine is noted with anterior predominant osteophytosis observed. This is noted particularly at C5-C6. No bony encroachment upon the cervical spinal canal. Soft tissues: Surrounding soft tissues of the neck are unremarkable on this noncontrast study. Other: Lung apices are unremarkable. IMPRESSION: Diminished cerebral volume and evidence of chronic microvascular ischemic change without acute intracranial abnormality. Focal encephalomalacia of the anterior left temporal lobe suggesting old ischemic change or infarct. No acute abnormality identified throughout the cervical spine. Multilevel degenerative changes of the cervical spine as discussed. Report Dictated on Electronically Signed By: Don Melara MD Electronically Signed Date/Time: 04/04/2024 4:53 PM EDT [facility] Radiology Study observation (narrative) [facility] Comprehensive metabolic 1998 panelon 04-04-2024 Albumin [Mass/Vol] 4.2 g/dL 3.5 - 5.0 g/dL [facility] ALP [Catalytic activity/Vol] 67 U/L 38 - 126 U/L [facility] ALT [Catalytic activity/Vol] 17 U/L 0 - 49 U/L [facility] Anion gap [Moles/Vol] 14 mmol/L High 3 - 13 mmol/L [facility] AST [Catalytic activity/Vol] 39 U/L 15 - 46 U/L [facility] Bilirubin [Mass/Vol] 1.0 mg/dL 0.2 - 1 .3 mg/dL [facility] Calcium [Mass/Vol] 8.8 mg/dL 8.4 - 10. 4 mg/dL [facility] Chloride [Moles/Vol] 98 mmol/L 98 - 10 7 mmol/L [facility] CO2 [Moles/Vol] 16 mmol/L Low 22 - 30 mmol/L [facility] Creatinine [Mass/Vol] 0.92 mg/dL 0.66 - 1.25 mg/dL [facility] GFR/1.73 sq M.predicted MDRD (S/P/Bld) [Vol rate/Area] [facility] Comment on above: Calculation based on the Chronic Kidney Disease Epidemiology Collaboration (CKD-EPI) equation refit without adjustment for race Glucose [Mass/Vol] 97 mg/dL 70 - 100 mg/dL [facility] Potassium [Moles/Vol] 3.5 mmol/L 3.5 - 5.1 mmol/L [facility] Protein [Mass/Vol] 7.2 g/dL 6.3 - 8.2 g/dL [facility] Sodium [Moles/Vol] 128 mmol/L Low 135 - 145 mmol/L [facility] Urea nitrogen [Mass/Vol] 8 mg/dL Low 9 - 20 mg/dL [facility] ED Nursing Noteon 04-04-2024 ED Nursing Note Warm blanket provide d to patient per request. Martha Okeefe RN 04/04/24 1630 Normal [facility] ED Nursing Note Normal [facility] ED Provider Noteon ED Provider Note Normal [facility] ETHANOLon 04-04-2024 ETHANOL IN SER/PLAS 0.201 g/dL High 0.000-0.010 [facility] Comment on above: Result Comment: CLAIRE Rivera COMMENTS:NOTE: This result is for medical treatment only. Analysis performed using non-forensic procedures. Performed By: #### L AB46, [id number], [id number], LAB17 ####Flame Channeler: ARA WRIGHT ([phone])[facility] [place] (SWRLAB)[address] Ethanol (Bld) [Mass/Vol]on 0 04-04-2024 Ethanol [Mass/Vol] 0.201 g/dL High 0.000 - 0.010 g/dL [facility] LACTIC ACID WITH REFLEXon Lactate [Moles/Vol] 3.8 mmol/L High 0.7-2.0 [facility] Comment on above: Performed By: #### L [id number] ####Flame Channeler: ARA WRIGHT ([phone])[facility] [place] (SWRLAB)[address] [place] [address] Laboratory - Chemistry and C hemistry - challengeon 04-04-2024 Lactate [Moles/Vol] 3.8 mmol/L High 0.7 - 2. 0 mmol/L [facility] Beta hydroxybutyrate [Mass/Vol] 2.29 mg/dL 0.20 - 2.81 mg/dL [facility] Troponin I.cardiac [Mass/Vol] ng/mL NINF - 0.034 ng/mL [facility] Laboratory - Chemistry and C hemistry - challengeOrdered By: Perla Garcia on 04-04-2024 CO2 [Moles/Vol] 19.0 mmol/L Low 24.0 - 28.0 mmol/L [facility] HCO3 (Bld) [Moles/Vol] 17.9 mmol/L Low 23.0 - 27.0 mmol/L [facility] Oxygen (Bld) [Partial pressure] 31 mm[Hg] mm(Hg) [facility] pH (Bld) 7.323 [pH] 7.310 - 7.410 [facility] No Panel Informationon 04-04 Interpretation and review of laboratory results Abnormal [facility] Interpretation and review of laboratory results Normal [facility] Diminished cerebral volume and evidence of chronic microvascular ischemic change without acute intracranial abnormality. Focal encephalomalacia of the anterior left temporal lobe suggesting old ischemic change or infarct. No acute abnormality identified throughout the cervical spine. Multilevel degenerative changes of the cervical spine as discussed. Report Dictated on Electronically Signed By: Don Melara MD Electronically Signed Date/Time: 04/04/2024 4:53 PM EDT [facility] Interpretation and review of laboratory results Abnormal [facility] No Panel InformationOrdered By: Perla Garcia on 04-04-2024 BASE EXCESS -8.0 mmol/L Low -3.0 - 3.0 mmol/L [facility] Interpretation and review of laboratory results Abnormal [facility] pCO2 35 Low [facility] Source Of Oxygen Room Air [facility] No Panel InformationOrdered By: Don Melara on 04-04-2024 [facility] Work Phone: TROPONIN, WITH SERIAL REFLEX on 04-04-2024 Troponin I.cardiac [Mass/Vol] ng/mL Normal <0.034 [facility] Comment on above: Result Comment: CLAIRE Rivera COMMENTS:Patients with high levels of Biotin oral intake (ie >5 mg/day) may have falsely decreased Troponin levels. Performed By: #### L AB46, [id number], [id number], LAB17 ####Flame Channeler: ARA WRIGHT ([phone])[facility] ([address] Troponin I.cardiac [Mass/Vol ]on 04-04-2024 Interpretation and review of laboratory results Normal [facility] Patients with high l evels of Biotin oral intake (ie >5 mg/day) may have falsely decreased Troponin levels. [facility] Vital signsOrdered By: Raz Garcia on 04-04-2024 Oxygen saturation in Blood 56.0 % Low 60.0 - 80.0 % [facility] XR Chest Single viewon 04-04 1. No evidence of an acute cardiopulmonary process. Report Dictated on Electronically Signed By: Tom Orourke MD Electronically Signed Date/Time: 04/04/2024 6:[address] [facility] Patient Name[facility] WOODY NI : 1960 [id number] Exam Date/Time: 04/04/2024 17:37 Procedure: XR CHEST 1 VIEW Ordering Provider: LO MARK Reason For Exam: CHEST PAIN CLINICAL INFORMATION: Chest pain. Portable view of the chest at 1725 hours is provided and compared with a previous study dated 10/20/2023. FINDINGS: The cardiac silhouette and mediastinum are within normal limits. The lungs are free of infiltrate or pleural effusion. The visualized bones and soft tissues are grossly unremarkable. [facility] Tom Orourke MD - 04/04/2024 Patient Name: WOODY NI : 1960 Exam Date/Time: 04/04/2024 17:37 Procedure: XR CHEST 1 VIEW Ordering Provider: LO MARK Reason For Exam: CHEST PAIN CLINICAL INFORMATION: Chest pain. Portable view of the chest at 1725 hours is provided and compared with a previous study dated 10/20/2023. FINDINGS: The cardiac silhouette and mediastinum are within normal limits. The lungs are free of infiltrate or pleural effusion. The visualized bones and soft tissues are grossly unremarkable. IMPRESSION: 1. No evidence of an acute cardiopulmonary process. Report Dictated on Electronically Signed By: Tom Orourke MD Electronically Signed Date/Time: 04/04/2024 6:12 PM EDT [facility] Radiology Study observation (narrative) [facility] [employer] XR Chest Single viewOrdered By: Tom Orourke on 04-04-2024 [employer] Work Phone: Acetaminophen [Mass/Vol]on 0 03-09-2024 Interpretation and review of laboratory results Abnormal [facility] ED Nursing Noteon 03-09-2024 ED Nursing Note Called pt home numbe r and notified family that pt left his glasses and I will be leaving them with protective services Anna Ramey RN 03/09/24 1545 Normal [facility] ED Nursing Note Normal [facility] ED Nursing Note Received call back f [place] PD that pt home is secured. Pt still wanting to leave. Per Dr. Stevens pt is OK to leave AMA. Pt ride called. Anna Ramey RN 03/09/24 1251 Normal [facility] ED Nursing Note Normal [facility] Laboratory - Chemistry and C hemistry - challengeon 03-09-2024 Glucose [Mass/Vol] 81 mg/dL 70 - 100 mg/dL [facility] Beta hydroxybutyrate [Mass/Vol] 0.81 mg/dL 0.20 - 2.81 mg/dL [facility] Base excess Calc (BldV) [Moles/Vol] -6.6000 mmol/L Low -3 - 3 mmol/L [facility] CO2 (BldV) [Partial pressure] 27.6 mm[Hg] Low [facility] HCO3 (Bld) [Moles/Vol] 16.8 mmol/L Low 23.0 - 27.0 mmol/L [facility] Oxygen (BldV) [Partial pressure] 60.7 mm[Hg] mm Hg [facility] pH (BldV) 7.392 [pH] 7.330 - 7.430 pH [facility] Laboratory - Drug toxicology on 03-09-2024 Acetaminophen [Mass/Vol] ug/mL Low 10.0 - 30.0 ug/mL [facility] Salicylates [Mass/Vol] mg/dL NINF - 20.0 mg/dL [facility] No Panel Informationon 03-09 Interpretation and review of laboratory results Normal [facility] Performed by: [facility], [address] [place] [id number] CLIA ID: [id number] [facility] Interpretation and review of laboratory results Normal [facility] FIO2 [facility] Interpretation and review of laboratory results Abnormal [facility] Performed by: [facility], [address] [facility] [address] CLIA ID: [id number] [facility] Radiology Study observation (narrative) [facility] No Panel InformationOrdered By: Steve Rose on 03-09-2024 ACETONE, SERUM Not detected Toxic > 20 Reporting Limit 5 mg/dL mg/dL [facility] ETHANOL, SERUM 0.203 Reporting Limit 0.01 g/dL g/dL (W/V) [facility] ISOPROPANOL, SERUM Not detected Toxic > 2 0 Reporting Limit 5 mg/dL mg/dL [facility] METHANOL, SERUM Not detected Toxic > 20 mg/dL, Reporting Limit 5 mg/dL mg/dL [facility] Progress Noteon 03-09-2024 Progress Note Normal [facility] Salicylates [Mass/Vol]on Interpretation and review of laboratory results Normal [facility] VOLATILE PANEL,SERUMon 03-09 ACETONE, SERUM-CAT LIST Not detected Normal Toxic > 20 Reporting Limit 5 mg/dL [facility] Comment on above: Performed By: #### L [id number] ####Flame Channeler: ARA WRIGHT ([id number])[address] ETHANOL, SERUM-NUMERIC 0.203 g/dL (W/V) Normal R eporting Limit 0.01 g/dL [facility] Comment on above: Performed By: #### L [id number] ####Flame Channeler: ARA WRIGHT ([phone])[address] ISOPROPANOL, SERUM-CAT LIST Not detected Normal Toxic > 20 Reporting Limit 5 mg/dL [facility] Comment on above: Result Comment: CLAIRE Rivera COMMENTS:NOTE:These results are for medical treatment only. Analysis performed using non-forensic procedures.This test has not been cleared by the [place] Food and Drug Administration (FDA). The FDA has determined that such clearance or approval is not necessary. The performance chararcteristics have been determined by the clinical laboratories of [facility]. Performed By: #### L [id number] ####Flame Channeler: ARA WRIGHT ([phone])[address] METHANOL, SERUM-CAT LIST Not detected Normal Toxic > 20 mg/dL, Reporting Limit 5 mg/dL [facility] Comment on above: Performed By: #### L [id number] ####Flame Channeler: ARA WRIGHT ([id number])[facility] ([facility])[address] [place] [address] Vital signson 03-09-2024 Oxygen saturation in Venous blood 91.2 % [facility] Comment on above: Performed by CLIA ID : [id number] [place], [place] ?Device: [id number] Binder Layer ID: [id number] ACETAMINOPHEN LEVELon 2023 Acetaminophen [Mass/Vol] ug/mL Low 10.0-30.0 [facility] Comment on above: Performed By: #### L AB34, LAB43, LAB17, [id number], LAB46 ####Flame Channeler: TRESSA SANTIZO ([phone])[facility])[address] [place] [address] BETA HYDROXYBUTYRATEon 03-08 BETA HYDROXYBUTYRATE 0.81 mg/dL Normal 0.20-2.81 [facility] Comment on above: Performed By: #### L AB34, LAB43, LAB17, [id number], LAB46 ####Flame Channeler: TRESSA SANTIZO ([phone])[facility])[address] [place] [address] CBC W Auto Differential pane l (Bld)Ordered By: Alen Beavers on 03-08-2024 Basophils (Bld) [#/Vol] 0.0 10*3/uL 0.0 - 0.2 10*3/uL [facility] Basophils/100 WBC (Bld) 0.1 % 0.0 - 2.0 % [facility] Eosinophils (Bld) [#/Vol] 0.0 10*3/uL 0.0 - 0.5 10*3/uL [facility] Eosinophils/100 WBC (Bld) 0.0 % 0.0 - 6.0 % [facility] Erythrocyte distribution width (RBC) [Ratio] 11.9 % 11.5 - 15.0 % [facility] Hematocrit (Bld) [Volume fraction] 37.0 % Low 40.0 - 52.0 % [facility] Hemoglobin (Bld) [Mass/Vol] 13.2 g/dL 13.0 - 18.0 g/dL [facility] [employer] Immature granulocytes (Bld) [#/Vol] 0.2 10*3/uL High NINF - 0.1 10*3/uL [facility] Immature granulocytes/100 WBC (Bld) 2.2 % High 0.0 - 2.0 % [facility] Interpretation and review of laboratory results Abnormal [facility] Lymphocytes (Bld) [#/Vol] 1.0 10*3/uL 1.0 - 4.3 10*3/uL [facility] Lymphocytes/100 WBC (Bld) 11.6 % Low 15.0 - 45.0 % [facility] MCH (RBC) [Entitic mass] 30.6 pg 26.0 - 34.0 pg [facility] MCHC (RBC) [Mass/Vol] 35.7 % 30.5 - 36.0 % [facility] MCV (RBC) [Entitic vol] 85.6 fL 77.0 - 99.0 fL [facility] [employer] Monocytes (Bld) [#/Vol] 0.1 10*3/uL 0.0 - 0.9 10*3/uL [facility] Monocytes/100 WBC (Bld) 1.2 % Low 5.0 - 13.0 % [facility] Neutrophils (Bld) [#/Vol] 7.6 10*3/uL High 1.8 - 7.5 10*3/uL [facility] Neutrophils/100 WBC (Bld) 84.9 % High 38.0 - 82.0 % [facility] Nucleated RBC/100 WBC (Bld) [Ratio] 0.0 % [facility] Platelet mean volume (Bld) [Entitic vol] 9.1 fL 9.0 - 12.7 fL [facility] Platelets (Bld) [#/Vol] 204 10*3/uL 140 - 440 10*3/uL [facility] RBC (Bld) [#/Vol] 4.32 10*6/uL Low 4.40 - 5.9 0 10*6/uL [facility] WBC (Bld) [#/Vol] 9.0 10*3/uL 3.6 - 10.7 10*3/uL [facility] CBC WITH AUTO DIFFERENTIALon 03-08-2024 Basophils (Bld) [#/Vol] 0.0 10*3/uL Normal 0.0-0.2 [facility] Comment on above: Performed By: #### L [id number] ####Flame Channeler: TRESSA CHRISJAVY ([id number])[facility] ([facility])[address] Basophils/100 WBC (Bld) 0.1 % Normal 0.0-2.0 [facility] Comment on above: Performed By: #### L [id number] ####Flame Channeler: TRESSA JONESKALAJAVY ([id number])[facility] ([facility])[address] Eosinophils (Bld) [#/Vol] 0.0 10*3/uL Normal 0.0-0.5 [facility] Comment on above: Performed By: #### L [id number] ####Flame Channeler: TRESSA CHRISJAVY ([id number])[facility] ([facility])[address] Eosinophils/100 WBC (Bld) 0.0 % Normal 0.0-6.0 [facility] Comment on above: Performed By: #### L [id number] ####Flame Channeler: TRESSA CHRISJAVY ([id number])[facility] ([facility])[address] [place] [address] Erythrocyte distribution width (RBC) [Ratio] 11.9 % Normal 11.5-15.0 [facility] Comment on above: Performed By: #### L [id number] ####Flame Channeler: TRESSA CHRISJAVY ([phone])[facility] [place] ([facility])[address] Hematocrit (Bld) [Volume fraction] 37.0 % Low 40.0-52.0 [facility] Comment on above: Performed By: #### L [id number] ####Flame Channeler: TRESSA SANTIZO ([phone])[facility] [place] ([facility])[address] Hemoglobin (Bld) [Mass/Vol] 13.2 g/dL Normal 13.0-18.0 [facility] Comment on above: Performed By: #### L [id number] ####Flame Channeler: TRESSA SANTIZO ([phone])[facility] ([facility])[address] IMMATURE GRANS % 2.2 % High 0.0-2.0 [facility] Comment on above: Performed By: #### L [id number] ####Flame Channeler: TRESSA SANTIZO ([phone])[facility] [place] ([facility])[address] IMMATURE GRANS ABSOLUTE 0.2 10*3/uL High <0.1 [facility] Comment on above: Performed By: #### L [id number] ####Flame Channeler: TRESSA SANTIZO ([id number])[facility] ([facility])[address] Lymphocytes (Bld) [#/Vol] 1.0 10*3/uL Normal 1.0-4.3 [facility] Comment on above: Performed By: #### L [id number] ####Flame Channeler: TRESSA SANTIZO ([phone])[facility] [place] ([facility])[address] Lymphocytes/100 WBC (Bld) 11.6 % Low 15.0-45.0 [facility] Comment on above: Performed By: #### L [id number] ####Flame Channeler: TRESSA SANTIZO ([phone])[facility] ([facility])[address] MCH (RBC) [Entitic mass] 30.6 pg Normal 26.0-34.0 [facility] Comment on above: Performed By: #### L [id number] ####Flame Channeler: TRESSA SANTIZO ([id number])[facility] ([facility])[address] MCHC 35.7 % Normal 30.5-36.0 [facility] Comment on above: Performed By: #### L [id number] ####Flame Channeler: TRESSA CHRISJAVY ([phone])[facility] ([facility])[address] MCV (RBC) [Entitic vol] 85.6 fL Normal 77.0-99.0 [facility] Comment on above: Performed By: #### L [id number] ####Flame Channeler: TRESSA CHRISJAVY ([id number])[facility] ([facility])[address] Monocytes (Bld) [#/Vol] 0.1 10*3/uL Normal 0.0-0.9 [facility] Comment on above: Performed By: #### L [id number] ####Flame Channeler: TRESSA CHRISJAVY ([id number])[facility] ([facility])[address] [place] [address] [place] Monocytes/100 WBC (Bld) 1.2 % Low 5.0-13.0 [facility] Comment on above: Performed By: #### L [id number] ####Flame Channeler: TRESSA SANTIZO ([phone])[facility] [place] ([facility])[address] NEUTROPHILS ABSOLUTE 7.6 10*3/uL High 1.8-7.5 [facility] Comment on above: Performed By: #### L [id number] ####Flame Channeler: TRESSA CHRISJAVY ([phone])[facility] [place] ([facility])[address] [place] [address] [place] Neutrophils/100 WBC (Bld) 84.9 % High 38.0-82.0 [facility] Comment on above: Performed By: #### L [id number] ####Flame Channeler: TRESSA SANTIZO ([phone])[facility] [place] ([facility])[address] NRBC 0.0 /100 WBCs Normal 0.0-2.0 [facility] Comment on above: Performed By: #### L [id number] ####Flame Channeler: TRESSA SANTIZO ([phone])[facility] [place] ([facility])[address] Platelet mean volume (Bld) [Entitic vol] 9.1 fL Normal 9.0-12.7 [facility] Comment on above: Performed By: #### L [id number] ####Flame Channeler: TRESSA SANTIZO ([phone])[facility] [place] ([facility])[address] Platelets (Bld) [#/Vol] 204 10*3/uL Normal 140-440 [facility] Comment on above: Performed By: #### L [id number] ####Flame Channeler: TRESSA SANTIZO ([phone])[facility] [place] ([facility])[address] RBC (Bld) [#/Vol] 4.32 10*6/uL Low 4.40-5.90 [facility] Comment on above: Performed By: #### L [id number] ####Flame Channeler: TRESSA SANTIZO ([phone])[facility] [place] ([facility])[address] WBC (Bld) [#/Vol] 9.0 10*3/uL Normal 3.6-10.7 [facility] Comment on above: Performed By: #### L [id number] ####Flame Channeler: TRESSA SANTIZO ([id number])[facility] [place] ([facility])[address] COMPREHENSIVE METABOLIC PANE Peter 03-08-2024 Albumin [Mass/Vol] 4.2 g/dL Normal 3.5-5.0 [facility] Comment on above: Performed By: #### L AB34, LAB43, LAB17, [id number], LAB46 ####Flame Channeler: TRESSA SANTIZO ([phone])[facility] [place] ([facility])[address] ALP [Catalytic activity/Vol] 49 U/L Normal 38-126 [facility] Comment on above: Performed By: #### L AB34, LAB43, LAB17, [id number], LAB46 ####Flame Channeler: TRESSA SANTIZO ([phone])[facility] ([facility])[address] ALT [Catalytic activity/Vol] 33 U/L Normal 0-49 [facility] Comment on above: Performed By: #### L AB34, LAB43, LAB17, PMA0586, LAB46 ####Flame Channeler: TRESSA SANTIZO ([id number])[facility] ([facility])[address] Anion gap [Moles/Vol] 19 mmol/L High 3-13 [facility] Comment on above: Performed By: #### L AB34, LAB43, LAB17, [id number], LAB46 ####Flame Channeler: TRESSA SANTIZO ([id number])[facility] ([facility])[address] AST [Catalytic activity/Vol] 35 U/L Normal 15-46 [facility] Comment on above: Performed By: #### L AB34, LAB43, LAB17, [id number], LAB46 ####Flame Channeler: TRESSA SANTIZO ([id number])[facility] ([facility])[address] Bilirubin [Mass/Vol] 0.9 mg/dL Normal 0.2-1.3 [facility] Comment on above: Performed By: #### L AB34, LAB43, LAB17, [id number], LAB46 ####Flame Channeler: TRESSA SANTIZO ([phone])[facility] ([facility])[address] Calcium [Mass/Vol] 8.7 mg/dL Normal 8.4-10.4 [facility] Comment on above: Performed By: #### L AB34, LAB43, LAB17, [id number], LAB46 ####Flame Channeler: TRESSA SANTIZO ([phone])[facility])[address] Chloride [Moles/Vol] 96 mmol/L Low 98-107 [facility] Comment on above: Performed By: #### L AB34, LAB43, LAB17, [id number], LAB46 ####Flame Channeler: TRESSA SANTIZO ([phone])[facility])[address] [place] [address] [place] CO2 [Moles/Vol] 14 mmol/L Low 22-30 [facility] Comment on above: Performed By: #### L AB34, LAB43, LAB17, ICV6994, LAB46 ####Flame Channeler: TRESSA SANTIZO ([phone])[facility])[address] Creatinine [Mass/Vol] 0.89 mg/dL Normal 0.66-1.25 [facility] Comment on above: Performed By: #### L AB34, LAB43, LAB17, [id number], LAB46 ####Flame Channeler: TRESSA SANTIZO ([id number])[facility] ([facility])[address] GLOMERULAR FILTRATION RATE ML/MIN/1.73 SQ M.PREDICTED >90.0 Normal >60.0 [facility] Comment on above: Result Comment: Calc ulation based on the Chronic Kidney Disease Epidemiology Collaboration (CKD-EPI) equation refit without adjustment for race Performed By: #### L AB34, LAB43, LAB17, [id number], LAB46 ####Flame Channeler: TRESSA SANTIZO ([phone])[facility] ([facility] Glucose [Mass/Vol] 138 mg/dL High 70-100 [facility] Comment on above: Performed By: #### L AB34, LAB43, LAB17, [id number], LAB46 ####Flame Channeler: TRESSA SANTIZO ([phone])[facility] ([facility])[address] Potassium [Moles/Vol] 4.4 mmol/L Normal 3.5-5.1 [facility] Comment on above: Performed By: #### L AB34, LAB43, LAB17, [id number], LAB46 ####Flame Channeler: TRESSA SANTIZO ([id number])[facility] ([facility])[address] Protein [Mass/Vol] 7.1 g/dL Normal 6.3-8.2 [facility] Comment on above: Performed By: #### L AB34, LAB43, LAB17, [id number], LAB46 ####Flame Channeler: TRESSA SANTIZO ([id number])[facility] ([facility])[address] Sodium [Moles/Vol] 130 mmol/L Low 135-145 [facility] Comment on above: Performed By: #### L AB34, LAB43, LAB17, [id number], LAB46 ####Flame Channeler: TRESSA SANTIZO ([phone])[facility] ([facility])[address] Urea nitrogen [Mass/Vol] 16 mg/dL Normal 9-20 [facility] Comment on above: Performed By: #### L AB34, LAB43, LAB17, [id number], LAB46 ####Flame Channeler: TRESSA SANTIZO ([id number])[facility] ([facility])[address] Comprehensive metabolic 1998 panelon 03-08-2024 Albumin [Mass/Vol] 4.2 g/dL 3.5 - 5.0 g/dL [facility] ALP [Catalytic activity/Vol] 49 U/L 38 - 126 U/L [facility] ALT [Catalytic activity/Vol] 33 U/L 0 - 49 U/L [facility] Anion gap [Moles/Vol] 19 mmol/L High 3 - 13 mmol/L [facility] AST [Catalytic activity/Vol] 35 U/L 15 - 46 U/L [facility] Bilirubin [Mass/Vol] 0.9 mg/dL 0.2 - 1 .3 mg/dL [facility] Calcium [Mass/Vol] 8.7 mg/dL 8.4 - 10. 4 mg/dL [facility] Chloride [Moles/Vol] 96 mmol/L Low 98 - 10 7 mmol/L [facility] CO2 [Moles/Vol] 14 mmol/L Low 22 - 30 mmol/L [facility] Creatinine [Mass/Vol] 0.89 mg/dL 0.66 - 1.25 mg/dL [facility] GFR/1.73 sq M.predicted MDRD (S/P/Bld) [Vol rate/Area] - PINF [facility] Comment on above: Calculation based on the Chronic Kidney Disease Epidemiology Collaboration (CKD-EPI) equation refit without adjustment for race Glucose [Mass/Vol] 138 mg/dL High 70 - 100 mg/dL [facility] Potassium [Moles/Vol] 4.4 mmol/L 3.5 - 5.1 mmol/L [facility] Protein [Mass/Vol] 7.1 g/dL 6.3 - 8.2 g/dL [facility] Sodium [Moles/Vol] 130 mmol/L Low 135 - 145 mmol/L [facility] Urea nitrogen [Mass/Vol] 16 mg/dL 9 - 20 mg/dL [facility] DRUGS OF ABUSEon 03-08-2024 AMPHETAMINE SCREEN Negative Normal [facility] Comment on above: Performed By: #### L [id number] ####Flame Channeler: TRESSA SANTIZO ([phone])[facility] ([facility])[address] [place] [address] BARBITURATES SCREEN Negative Normal [facility] Comment on above: Performed By: #### L [id number] ####Flame Channeler: TRESSA SANTIZO ([phone])[facility] [place] [address] BENZODIAZEPINE SCREEN Negative Normal [facility] Comment on above: Performed By: #### L [id number] ####Flame Channeler: TRESSA SANTIZO ([id number])[facility] ([facility])[address] COCAINE METAB. SCREEN Negative Normal [facility] Comment on above: Performed By: #### L [id number] ####Flame Channeler: TRESSA JONESALEKSANDR ([id number])[facility] ([facility])[address] METHADONE SCREEN Negative Normal [facility] Comment on above: Performed By: #### L [id number] ####Flame Channeler: TRESSA JONESALEKSANDR ([id number])[facility] ([facility])[address] OPIATES SCREEN Negative Normal [facility] Comment on above: Performed By: #### L [id number] ####Flame Channeler: TRESSA CHRISJAVY ([id number])[facility] ([facility])[address] OXYCODONE SCREEN Negative Normal [facility] Comment on above: Performed By: #### L [id number] ####Flame Channeler: TRESSA JONESALEKSANDR ([id number])[facility] ([facility])[address] PHENCYCLIDINE SCREEN Negative Normal [facility] Comment on above: Result Comment: CLAIRE R COMMENTS:The expected value for all of the drugs listed above is Negative.The following drugs or drug groups have been screened for by Immunoassay at the following thresholds:Amphetamine class (1000 ng/mL)Barbiturates (200 ng/mL)Benzodiazepines (200 ng/mL)Cocaine (300 ng/mL)Methadone (300 ng/mL)Opiates (300 ng/mL)Oxycodone (100 ng/mL)PCP (25 ng/mL)NOTE: These results are for medical treatment only. Analysis performed using non-forensic procedures. POSITIVE results are NOT confirmed by a more specificalternative method unless requested. If confirmation is needed, request confirmation under separate order. Performed By: #### L [id number] ####Flame Channeler: TRESSA CHRISJAVY ([id number])[facility] ([facility])[address] ED Nursing Noteon 03-08-2024 ED Nursing Note Pt. 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 Seizure pads applied to hospital bed. Marjan An RN 03/08/24 2135 Normal [facility] ED Nursing Note Normal [facility] ED Nursing Note Normal [facility] ED Provider Noteon ED Provider Note Normal [facility] ETHANOLon 03-08-2024 ETHANOL IN SER/PLAS 0.284 g/dL High 0.000-0.010 [facility] Comment on above: Result Comment: ALDAE R COMMENTS:NOTE: This result is for medical treatment only. Analysis performed using non-forensic procedures. Performed By: #### L AB34, LAB43, LAB17, [id number], LAB46 ####Flame Channeler: TRESSA SANTIZO ([phone])[facility])[address] Ethanol (Bld) [Mass/Vol]on 0 03-08-2024 Ethanol [Mass/Vol] 0.284 g/dL High 0.000 - 0.010 g/dL [facility] - Drug toxicology Ordered By: Maricruz Mesa on 03-08-2024 Amphetamines Screen method >1000 ng/mL Ql (U) Negative [facility] Barbiturates Screen method >200 ng/mL Ql (U) Negative [facility] Benzodiazepines Ql (U) Negative [facility] Methadone Screen Ql (U) Negative [facility] Opiates Screen Ql (U) Negative [facility] oxyCODONE Ql (U) Negative [facility] Phencyclidine Ql (U) Negative [facility] - Microbiology an d Antimicrobial susceptibilityon 03-08-2024 SARS-CoV-2 (COVID-19) Ag IA.rapid Ql (Resp) Negative Negative [facility] Comment on above: A negative result do es not rule out the possibility of SARS-CoV-2 infection. NAAT-based methods should be considered for symptomatic patients presenting greater than seven days after onset of symptoms. Method: Lateral flow immunoassay. Fact sheets for healthcare providers and patients can be found at the following sites: https://www.fda.gov/media/046668/download https://www.fda.gov/media/667477/download No Panel InformationOrdered By: Maricruz Mesa on 03-08-2024 COCAINE METAB. SCREEN Negative [facility] The expected value f or all of the drugs listed above is Negative. The following drugs or drug groups have been screened for by Immunoassay at the following thresholds: Amphetamine class (1000 ng/mL) Barbiturates (200 ng/mL) Benzodiazepines (200 ng/mL) Cocaine (300 ng/mL) Methadone (300 ng/mL) Opiates (300 ng/mL) Oxycodone (100 ng/mL) PCP (25 ng/mL) NOTE: These results are for medical treatment only. Analysis performed using non-forensic procedures. POSITIVE results are NOT confirmed by a more specific alternative method unless requested. If confirmation is needed, request confirmation under separate order. [facility] No Panel Informationon 03-08 Interpretation and review of laboratory results Abnormal [facility] Radiology Study observation (narrative) [facility] SALICYLATEon 03-08-2024 SALICYLATES <1.0 Normal <20.0 [facility] Comment on above: Performed By: #### L AB34, LAB43, LAB17, [id number], LAB46 ####Flame Channeler: TRESSA SANTIZO ([id number])[facility] ([facility])[address] [place] [address] SARS-COV-2 ANTIGENon 024 SARS-COV-2 ANTIGEN Normal [facility] Comment on above: Performed By: #### L [id number] ####Flame Channeler: TRESSA SANTIZO ([phone])[facility] ([facility])[address] [place] [address] SARS-CoV-2 (COVID-19) Ag IA. rapid Ql (Resp)on 03-08-2024 Interpretation and review of laboratory results Normal [facility] 36on 02-26-2024 36 Normal [facility] CARECOORDon 01-27-2024 [place] Patient Choice Patient Name: WOODY NI Date of : 1960 Normal [facility] CARECOORDon 01-26-2024 [place] Normal [facility] [place] Normal [facility] CARECOAVERY Asked by TCC to set transport to [facility]. Wheel chair transportation arranged through [employer] for 1300 last picker. 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 Normal [facility] Discharge med list transmitted to [facility] via [facility] per TCC request. 7000 was entered into [employer] for the [facility]. Normal [facility] CBC (HEMOGRAM)on 01-26-2024 Erythrocyte distribution width (RBC) [Ratio] 13.5 % Normal 11.5-15.0 [facility] Comment on above: Performed By: #### L [id number] ####Flame Channeler: ARA WRIGHT ([id number])[address] Hematocrit (Bld) [Volume fraction] 32.2 % Low 40.0-52.0 [facility] Comment on above: Performed By: #### L [id number] ####Flame Channeler: ARA WRIGHT ([id number])[address] Hemoglobin (Bld) [Mass/Vol] 11.2 g/dL Low 13.0-18.0 [facility] Comment on above: Performed By: #### L [id number] ####Flame Channeler: ARA WRIGHT ([id number])[address] MCH (RBC) [Entitic mass] 31.7 pg Normal 26.0-34.0 [facility] Comment on above: Performed By: #### L [id number] ####Flame Channeler: ARA WRIGHT ([id number])[address] MCHC 34.8 % Normal 30.5-36.0 [facility] Comment on above: Performed By: #### L [id number] ####Flame Channeler: ARA WRIGHT ([id number])[facility])[address] [place] [address] MCV (RBC) [Entitic vol] 91.2 fL Normal 77.0-99.0 [facility] Comment on above: Performed By: #### L [id number] ####Flame Channeler: ARA WRIGHT ([phone])[facility])[address] [place] [address] Platelet mean volume (Bld) [Entitic vol] 9.1 fL Normal 9.0-12.7 [facility] Comment on above: Performed By: #### L [id number] ####Flame Channeler: ARA WRIGHT ([id number])[facility])[address] [place] [address] Platelets (Bld) [#/Vol] 151 10*3/uL Normal 140-440 [facility] Comment on above: Performed By: #### L [id number] ####Flame Channeler: ARA WRIGHT ([id number])[facility])[address] [place] [address] RBC (Bld) [#/Vol] 3.53 10*6/uL Low 4.40-5.90 [facility] Comment on above: Performed By: #### L [id number] ####Flame Channeler: ARA WRIGHT ([id number])[facility])[address] [place] [address] WBC (Bld) [#/Vol] 6.1 10*3/uL Normal 3.6-10.7 [facility] Comment on above: Performed By: #### L [id number] ####Flame Channeler: ARA WRIGHT ([id number])[facility])[address] [place] [address] CBC panel Auto (Bld)on 04-09 -2024 Erythrocyte distribution width (RBC) [Ratio] 13.5 % 11.5 - 15.0 % [facility] Hematocrit (Bld) [Volume fraction] 32.2 % Low 40.0 - 52.0 % [facility] Hemoglobin (Bld) [Mass/Vol] 11.2 g/dL Low 13.0 - 18.0 g/dL [facility] Interpretation and review of laboratory results Abnormal [facility] MCH (RBC) [Entitic mass] 31.7 pg 26.0 - 34.0 pg [facility] MCHC (RBC) [Mass/Vol] 34.8 % 30.5 - 36.0 % [facility] MCV (RBC) [Entitic vol] 91.2 fL 77.0 - 99.0 fL [facility] Platelet mean volume (Bld) [Entitic vol] 9.1 fL 9.0 - 12.7 fL [facility] Platelets (Bld) [#/Vol] 151 10*3/uL 140 - 440 10*3/uL [facility] RBC (Bld) [#/Vol] 3.53 10*6/uL Low 4.40 - 5.9 0 10*6/uL [facility] WBC (Bld) [#/Vol] 6.1 10*3/uL 3.6 - 10.7 10*3/uL [facility] COMPREHENSIVE METABOLIC PANE Peter 01-26-2024 Albumin [Mass/Vol] 3.8 g/dL Normal 3.5-5.0 [facility] Comment on above: Performed By: #### L AB17 ####Flame Channeler: ARA WRIGHT ([phone])[address] ALP [Catalytic activity/Vol] 50 U/L Normal 38-126 [facility] Comment on above: Performed By: #### L AB17 ####Flame Channeler: ARA WRIGHT ([id number])[address] ALT [Catalytic activity/Vol] 18 U/L Normal 0-49 [facility] Comment on above: Performed By: #### L AB17 ####Flame Channeler: ARA WRIGHT ([id number])[facility] ([facility])[address] [place] [address] Anion gap [Moles/Vol] 10 mmol/L Normal 3-13 [facility] Comment on above: Performed By: #### L AB17 ####Flame Channeler: ARA WRIGHT ([id number])[facility] ([facility])[address] [place] [address] AST [Catalytic activity/Vol] 22 U/L Normal 15-46 [facility] Comment on above: Performed By: #### L AB17 ####Flame Channeler: ARA WRIGHT ([id number])[facility] ([facility])[address] [place] [address] Bilirubin [Mass/Vol] 0.6 mg/dL Normal 0.2-1.3 [facility] Comment on above: Performed By: #### L AB17 ####Flame Channeler: ARA WRIGHT ([id number])[facility] ([facility])[address] [place] [address] Calcium [Mass/Vol] 8.9 mg/dL Normal 8.4-10.4 [facility] Comment on above: Performed By: #### L AB17 ####Flame Channeler: ARA WRIGHT ([id number])[facility] ([facility])[address] [place] [address] Chloride [Moles/Vol] 101 mmol/L Normal 98-107 [facility] Comment on above: Performed By: #### L AB17 ####Flame Channeler: ARA WRIGHT ([id number])[facility] ([facility])[address] [place] [address] [place] CO2 [Moles/Vol] 17 mmol/L Low 22-30 [facility] Comment on above: Performed By: #### L AB17 ####Flame Channeler: ARA WRIGHT ([phone])[facility] ([facility])[address] [place] [address] Creatinine [Mass/Vol] 0.92 mg/dL Normal 0.66-1.25 [facility] Comment on above: Performed By: #### L AB17 ####Flame Channeler: ARA WRIGHT ([id number])[facility] ([facility])[address] [place] [address] GLOMERULAR FILTRATION RATE ML/MIN/1.73 SQ M.PREDICTED >90.0 Normal >60.0 [facility] Comment on above: Result Comment: Calc ulation based on the Chronic Kidney Disease Epidemiology Collaboration (CKD-EPI) equation refit without adjustment for race Performed By: #### L AB17 ####Flame Channeler: ARA WRIGHT ([id number])[facility] ([facility])[address] [place] [address] Glucose [Mass/Vol] 95 mg/dL Normal 70-100 [facility] Comment on above: Performed By: #### L AB17 ####Flame Channeler: ARA WRIGHT ([id number])[facility] ([facility])[address] [place] [address] Potassium [Moles/Vol] 3.7 mmol/L Normal 3.5-5.1 [facility] Comment on above: Performed By: #### L AB17 ####Flame Channeler: ARA WRIGHT ([id number])[facility] ([facility])[address] [place] [address] Protein [Mass/Vol] 6.7 g/dL Normal 6.3-8.2 [facility] Comment on above: Performed By: #### L AB17 ####Flame Channeler: ARA WRIGHT ([id number])[facility] ([facility])[address] [place] [address] [place] Sodium [Moles/Vol] 128 mmol/L Low 135-145 [facility] Comment on above: Performed By: #### L AB17 ####Flame Channeler: ARA WRIGHT ([id number])[facility] ([facility])[address] [place] [address] [place] Urea nitrogen [Mass/Vol] 5 mg/dL Low 9-20 [facility] Comment on above: Performed By: #### L AB17 ####Flame Channeler: ARA WRIGHT ([id number])[facility] ([facility])[address] [place], [place] [id number] [facility] Comprehensive metabolic 1998 panelon 01-26-2024 Albumin [Mass/Vol] 3.8 g/dL 3.5 - 5.0 g/dL [facility] ALP [Catalytic activity/Vol] 50 U/L 38 - 126 U/L [facility] ALT [Catalytic activity/Vol] 18 U/L 0 - 49 U/L [facility] Anion gap [Moles/Vol] 10 mmol/L 3 - 13 mmol/L [facility] AST [Catalytic activity/Vol] 22 U/L 15 - 46 U/L [facility] Bilirubin [Mass/Vol] 0.6 mg/dL 0.2 - 1 .3 mg/dL [facility] Calcium [Mass/Vol] 8.9 mg/dL 8.4 - 10. 4 mg/dL [facility] Chloride [Moles/Vol] 101 mmol/L 98 - 10 7 mmol/L [facility] CO2 [Moles/Vol] 17 mmol/L Low 22 - 30 mmol/L [facility] Creatinine [Mass/Vol] 0.92 mg/dL 0.66 - 1.25 mg/dL [facility] GFR/1.73 sq M.predicted MDRD (S/P/Bld) [Vol rate/Area] - PINF [facility] Comment on above: Calculation based on the Chronic Kidney Disease Epidemiology Collaboration (CKD-EPI) equation refit without adjustment for race Glucose [Mass/Vol] 95 mg/dL 70 - 100 mg/dL [facility] Interpretation and review of laboratory results Abnormal [facility] Potassium [Moles/Vol] 3.7 mmol/L 3.5 - 5.1 mmol/L [facility] Protein [Mass/Vol] 6.7 g/dL 6.3 - 8.2 g/dL [facility] Sodium [Moles/Vol] 128 mmol/L Low 135 - 145 mmol/L [facility] Urea nitrogen [Mass/Vol] 5 mg/dL Low 9 - 20 mg/dL [facility] Progress Noteon 01-26-2024 Progress Note Normal [facility] [id number] 01-25-2024 [id number] Tool 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 Asked to follow per tcc and check cost/benefits for home infusion. Will send to [facility] to inquire. Normal [facility] BASIC METABOLIC PANELon 04-0 Anion gap [Moles/Vol] 11 mmol/L Normal 3-13 [facility] Comment on above: Performed By: #### L AB15, [id number] ####Flame Channeler: ARA WRIGHT ([id number])[facility] [place] [address] Calcium [Mass/Vol] 9.3 mg/dL Normal 8.4-10.4 [facility] Comment on above: Performed By: #### L AB15, [id number] ####Flame Channeler: ARA WRIGHT ([id number])[facility] [place] [address] Chloride [Moles/Vol] 102 mmol/L Normal 98-107 [facility] Comment on above: Performed By: #### L AB15, [id number] ####Flame Channeler: ARA WRIGHT ([id number])[facility] [place] [address] CO2 [Moles/Vol] 16 mmol/L Low 22-30 [facility] Comment on above: Performed By: #### L AB15, [id number] ####Flame Channeler: ARA WRIGHT ([id number])[facility] ([facility])[address] [place] [address] Creatinine [Mass/Vol] 0.94 mg/dL Normal 0.66-1.25 [facility] Comment on above: Performed By: #### L AB15, [id number] ####Flame Channeler: ARA WRIGHT ([id number])[facility] ([facility])[address] [place] [address] GLOMERULAR FILTRATION RATE ML/MIN/1.73 SQ M.PREDICTED >90.0 Normal >60.0 [facility] Comment on above: Result Comment: Calc ulation based on the Chronic Kidney Disease Epidemiology Collaboration (CKD-EPI) equation refit without adjustment for race Performed By: #### L AB15, [id number] ####Flame Channeler: ARA WRIGHT ([id number])[facility] ([facility])[address] [place] [address] Glucose [Mass/Vol] 100 mg/dL Normal 70-100 [facility] Comment on above: Performed By: #### L AB15, [id number] ####Flame Channeler: ARA WRIGHT ([id number])[facility] ([facility])[address] [place] [address] Potassium [Moles/Vol] 3.6 mmol/L Normal 3.5-5.1 [facility] Comment on above: Performed By: #### L AB15, [id number] ####Flame Channeler: ARA WRIGHT ([id number])[facility] ([facility])[address] [place] [address] Sodium [Moles/Vol] 129 mmol/L Low 135-145 [facility] Comment on above: Performed By: #### L AB15, [id number] ####Flame Channeler: ARA WRIGHT ([id number])[facility] ([facility])[address] [place] [address] Urea nitrogen [Mass/Vol] 9 mg/dL Normal 9-20 [facility] Comment on above: Performed By: #### L AB15, [id number] ####Flame Channeler: ARA WRIGHT ([id number])[facility] ([facility])[address] [place] [address] Basic metabolic 1998 panelon 01-25-2024 Anion gap [Moles/Vol] 11 mmol/L 3 - 13 mmol/L [facility] Calcium [Mass/Vol] 9.3 mg/dL 8.4 - 10. 4 mg/dL [facility] Chloride [Moles/Vol] 102 mmol/L 98 - 10 7 mmol/L [facility] CO2 [Moles/Vol] 16 mmol/L Low 22 - 30 mmol/L [facility] Creatinine [Mass/Vol] 0.94 mg/dL 0.66 - 1.25 mg/dL [facility] GFR/1.73 sq M.predicted MDRD (S/P/Bld) [Vol rate/Area] - PINF [facility] Comment on above: Calculation based on the Chronic Kidney Disease Epidemiology Collaboration (CKD-EPI) equation refit without adjustment for race Glucose [Mass/Vol] 100 mg/dL 70 - 100 mg/dL [facility] Potassium [Moles/Vol] 3.6 mmol/L 3.5 - 5.1 mmol/L [facility] Sodium [Moles/Vol] 129 mmol/L Low 135 - 145 mmol/L [facility] Urea nitrogen [Mass/Vol] 9 mg/dL 9 - 20 mg/dL [facility] CARECOORDon 01-25-2024 [place] Updated notes placed to [facility] via [facility] per TCC request. Await review and response regarding ability to accept. TCC notified. Normal [facility] CAR[place]OORD Normal [facility] CBC W Auto Differential pane l (Bld)on 01-25-2024 Basophils (Bld) [#/Vol] 0.0 10*3/uL 0.0 - 0.2 10*3/uL [facility] Basophils/100 WBC (Bld) 0.7 % 0.0 - 2.0 % [facility] Eosinophils (Bld) [#/Vol] 0.1 10*3/uL 0.0 - 0.5 10*3/uL [facility] Eosinophils/100 WBC (Bld) 2.0 % 0.0 - 6.0 % [facility] Erythrocyte distribution width (RBC) [Ratio] 13.7 % 11.5 - 15.0 % [facility] Hematocrit (Bld) [Volume fraction] 34.0 % Low 40.0 - 52.0 % [facility] Hemoglobin (Bld) [Mass/Vol] 11.7 g/dL Low 13.0 - 18.0 g/dL [facility] Immature granulocytes (Bld) [#/Vol] 0.0 10*3/uL NINF - 0.1 10*3/uL [facility] Immature granulocytes/100 WBC (Bld) 0.3 % 0.0 - 2.0 % [facility] Interpretation and review of laboratory results Abnormal [facility] Lymphocytes (Bld) [#/Vol] 2.3 10*3/uL 1.0 - 4.3 10*3/uL [facility] Lymphocytes/100 WBC (Bld) 39.1 % 15.0 - 45.0 % [facility] MCH (RBC) [Entitic mass] 31.5 pg 26.0 - 34.0 pg [facility] MCHC (RBC) [Mass/Vol] 34.4 % 30.5 - 36.0 % [facility] MCV (RBC) [Entitic vol] 91.6 fL 77.0 - 99.0 fL [facility] Monocytes (Bld) [#/Vol] 0.7 10*3/uL 0.0 - 0.9 10*3/uL [facility] Monocytes/100 WBC (Bld) 11.0 % 5.0 - 13.0 % [facility] Neutrophils (Bld) [#/Vol] 2.8 10*3/uL 1.8 - 7.5 10*3/uL [facility] Neutrophils/100 WBC (Bld) 46.9 % 38.0 - 82.0 % [facility] Nucleated RBC/100 WBC (Bld) [Ratio] 0.0 % [facility] Platelet mean volume (Bld) [Entitic vol] 9.4 fL 9.0 - 12.7 fL [facility] Platelets (Bld) [#/Vol] 141 10*3/uL 140 - 440 10*3/uL [facility] RBC (Bld) [#/Vol] 3.71 10*6/uL Low 4.40 - 5.9 0 10*6/uL [facility] WBC (Bld) [#/Vol] 6.0 10*3/uL 3.6 - 10.7 10*3/uL [facility] CBC WITH AUTO DIFFERENTIALon 01-25-2024 Basophils (Bld) [#/Vol] 0.0 10*3/uL Normal 0.0-0.2 [facility] Comment on above: Performed By: #### L [id number] ####Flame Channeler: ARA WRIGHT ([phone])[address] Basophils/100 WBC (Bld) 0.7 % Normal 0.0-2.0 [facility] Comment on above: Performed By: #### L [id number] ####Flame Channeler: ARA WRIGHT ([phone])[facility])[address] [place] [address] Eosinophils (Bld) [#/Vol] 0.1 10*3/uL Normal 0.0-0.5 [facility] Comment on above: Performed By: #### L [id number] ####Flame Channeler: ARA WRIGHT ([phone])[facility])[address] [place] [address] Eosinophils/100 WBC (Bld) 2.0 % Normal 0.0-6.0 [facility] Comment on above: Performed By: #### L [id number] ####Flame Channeler: ARA WRIGHT ([phone])[facility])[address] [place] [address] Erythrocyte distribution width (RBC) [Ratio] 13.7 % Normal 11.5-15.0 [facility] Comment on above: Performed By: #### L [id number] ####Flame Channeler: ARA WRIGHT ([phone])[address] Hematocrit (Bld) [Volume fraction] 34.0 % Low 40.0-52.0 [facility] Comment on above: Performed By: #### L [id number] ####Flame Channeler: ARA WRIGHT ([phone])[address] Hemoglobin (Bld) [Mass/Vol] 11.7 g/dL Low 13.0-18.0 [facility] Comment on above: Performed By: #### L [id number] ####Flame Channeler: ARA WRIGHT ([phone])[address] IMMATURE GRANS % 0.3 % Normal 0.0-2.0 [facility] Comment on above: Performed By: #### L [id number] ####Flame Channeler: ARA WRIGHT ([phone])[address] IMMATURE GRANS ABSOLUTE 0.0 10*3/uL Normal <0.1 [facility] Comment on above: Performed By: #### L [id number] ####Flame Channeler: ARA WRIGHT ([id number])[facility])[address] [place] [address] Lymphocytes (Bld) [#/Vol] 2.3 10*3/uL Normal 1.0-4.3 [facility] Comment on above: Performed By: #### L [id number] ####Flame Channeler: ARA WRIGHT ([phone])[facility])[address] [place] [address] Lymphocytes/100 WBC (Bld) 39.1 % Normal 15.0-45.0 [facility] Comment on above: Performed By: #### L [id number] ####Flame Channeler: ARA WRIGHT ([phone])[address] MCH (RBC) [Entitic mass] 31.5 pg Normal 26.0-34.0 [facility] Comment on above: Performed By: #### L [id number] ####Flame Channeler: ARA WRIGHT ([phone])[facility])[address] [place] [address] MCHC 34.4 % Normal 30.5-36.0 [facility] Comment on above: Performed By: #### L [id number] ####Flame Channeler: ARA WRIGHT ([id number])[facility])[address] [place] [address] MCV (RBC) [Entitic vol] 91.6 fL Normal 77.0-99.0 [facility] Comment on above: Performed By: #### L [id number] ####Flame Channeler: ARA WRIGHT ([phone])[facility])[address] [place] [address] Monocytes (Bld) [#/Vol] 0.7 10*3/uL Normal 0.0-0.9 [facility] Comment on above: Performed By: #### L [id number] ####Flame Channeler: ARA WRIGHT ([phone])[facility] [place] [address] Monocytes/100 WBC (Bld) 11.0 % Normal 5.0-13.0 [facility] Comment on above: Performed By: #### L [id number] ####Flame Channeler: ARA WRIGHT ([phone])[facility] ([facility])[address] [place] [address] NEUTROPHILS ABSOLUTE 2.8 10*3/uL Normal 1.8-7.5 [facility] Comment on above: Performed By: #### L [id number] ####Flame Channeler: ARA WRIGHT ([phone])[facility])[address] [place] [address] Neutrophils/100 WBC (Bld) 46.9 % Normal 38.0-82.0 [facility] Comment on above: Performed By: #### L [id number] ####Flame Channeler: ARA WRIGHT ([phone])[facility] ([facility])[address] [place] [address] NRBC 0.0 /100 WBCs Normal 0.0-2.0 [facility] Comment on above: Performed By: #### L [id number] ####Flame Channeler: ARA WRIGHT ([phone])[facility])[address] [place] [address] Platelet mean volume (Bld) [Entitic vol] 9.4 fL Normal 9.0-12.7 [facility] Comment on above: Performed By: #### L [id number] ####Flame Channeler: ARA WRIGHT ([phone])[facility] ([facility])[address] [place] [address] Platelets (Bld) [#/Vol] 141 10*3/uL Normal 140-440 [facility] Comment on above: Performed By: #### L [id number] ####Flame Channeler: ARA WRIGHT ([phone])[facility])[address] [place] [address] RBC (Bld) [#/Vol] 3.71 10*6/uL Low 4.40-5.90 [facility] Comment on above: Performed By: #### L [id number] ####Flame Channeler: ARA WRIGHT ([phone])[facility])[address] [place] [address] WBC (Bld) [#/Vol] 6.0 10*3/uL Normal 3.6-10.7 [facility] Comment on above: Performed By: #### L [id number] ####Flame Channeler: ARA WRIGHT ([phone])[facility] ([facility])[address] [place] [address] Laboratory - Chemistry and C hemistry - challengeon 01-25-2024 Magnesium [Mass/Vol] 1.5 mg/dL Low 1.6 - 2 .3 mg/dL [facility] MAGNESIUMon 01-25-2024 Magnesium [Mass/Vol] 1.5 mg/dL Low 1.6-2.3 [facility] Comment on above: Performed By: #### L AB15, [id number] ####Flame Channeler: ARA WRIGHT ([phone])[address] No Panel Informationon 01-24 Interpretation and review of laboratory results Abnormal [facility] Progress Noteon 01-25-2024 Progress Note Normal [facility] Progress Note Normal [facility] Progress Note Normal [facility] Progress Note PHYSICAL THERAPY [facility] Name/MRN: Woody Ni ([id number]) Date: 01/25/2024 Attempted PT. Pt states he can't do any therapy right now because he needs his meds first. Will re-attempt as schedule allows. Amarilys Leary, NEEDLE BOARD REPAIRER Normal [facility] Progress Note Normal [facility] BASIC METABOLIC PANELon Anion gap [Moles/Vol] 11 mmol/L Normal 3-13 [facility] Comment on above: Performed By: #### L AB103, LAB15 ####Flame Channeler: ARA WRIGHT ([phone])[facility])[address] [place] [address] Calcium [Mass/Vol] 9.6 mg/dL Normal 8.4-10.4 [facility] Comment on above: Performed By: #### L AB103, LAB15 ####Flame Channeler: ARA WRIGHT ([phone])[facility] ([facility])[address] [place] [address] Chloride [Moles/Vol] 103 mmol/L Normal 98-107 [facility] Comment on above: Performed By: #### L AB103, LAB15 ####Flame Channeler: ARA WRIGHT ([phone])[facility] ([facility])[address] [place] [address] [place] CO2 [Moles/Vol] 18 mmol/L Low 22-30 [facility] Comment on above: Performed By: #### L AB103, LAB15 ####Flame Channeler: ARA WRIGHT ([phone])[facility] ([facility])[address] [place] [address] Creatinine [Mass/Vol] 0.86 mg/dL Normal 0.66-1.25 [facility] Comment on above: Performed By: #### L AB103, LAB15 ####Flame Channeler: ARA WRIGHT ([phone])[facility])[address] [place] [address] GLOMERULAR FILTRATION RATE ML/MIN/1.73 SQ M.PREDICTED >90.0 Normal >60.0 [facility] Comment on above: Result Comment: Calc ulation based on the Chronic Kidney Disease Epidemiology Collaboration (CKD-EPI) equation refit without adjustment for race Performed By: #### L AB103, LAB15 ####Flame Channeler: ARA WRIGHT ([id number])[facility] ([facility])[address] [place] [address] [place] Glucose [Mass/Vol] 97 mg/dL Normal 70-100 [facility] Comment on above: Performed By: #### L AB103, LAB15 ####Flame Channeler: ARA WRIGHT ([phone])[facility])[address] [place] [address] [place] Potassium [Moles/Vol] 4.0 mmol/L Normal 3.5-5.1 [facility] Comment on above: Performed By: #### L AB103, LAB15 ####Flame Channeler: ARA WRIGHT ([phone])[facility] ([facility])[address] [place] [address] Sodium [Moles/Vol] 132 mmol/L Low 135-145 [facility] Comment on above: Performed By: #### L AB103, LAB15 ####Flame Channeler: ARA WRIGHT ([phone])[facility] ([facility])[address] [place] [address] Urea nitrogen [Mass/Vol] 12 mg/dL Normal 9-20 [facility] Comment on above: Performed By: #### L AB103, LAB15 ####Flame Channeler: ARA WRIGHT ([phone])[facility] ([facility])[address] [place] [address] Basic metabolic 1998 panelon 01-24-2024 Anion gap [Moles/Vol] 11 mmol/L 3 - 13 mmol/L [facility] Calcium [Mass/Vol] 9.6 mg/dL 8.4 - 10. 4 mg/dL [facility] Chloride [Moles/Vol] 103 mmol/L 98 - 10 7 mmol/L [facility] CO2 [Moles/Vol] 18 mmol/L Low 22 - 30 mmol/L [facility] Creatinine [Mass/Vol] 0.86 mg/dL 0.66 - 1.25 mg/dL [facility] GFR/1.73 sq M.predicted MDRD (S/P/Bld) [Vol rate/Area] - PINF [facility] Comment on above: Calculation based on the Chronic Kidney Disease Epidemiology Collaboration (CKD-EPI) equation refit without adjustment for race Glucose [Mass/Vol] 97 mg/dL 70 - 100 mg/dL [facility] Interpretation and review of laboratory results Abnormal [facility] Potassium [Moles/Vol] 4.0 mmol/L 3.5 - 5.1 mmol/L [facility] Sodium [Moles/Vol] 132 mmol/L Low 135 - 145 mmol/L [facility] Urea nitrogen [Mass/Vol] 12 mg/dL 9 - 20 mg/dL [facility] CBC W Auto Differential pane l (Bld)on 01-24-2024 Basophils (Bld) [#/Vol] 0.0 10*3/uL 0.0 - 0.2 10*3/uL [facility] Basophils/100 WBC (Bld) 0.5 % 0.0 - 2.0 % [facility] Eosinophils (Bld) [#/Vol] 0.1 10*3/uL 0.0 - 0.5 10*3/uL [facility] Eosinophils/100 WBC (Bld) 2.3 % 0.0 - 6.0 % [facility] Erythrocyte distribution width (RBC) [Ratio] 13.9 % 11.5 - 15.0 % [facility] Hematocrit (Bld) [Volume fraction] 33.0 % Low 40.0 - 52.0 % [facility] Hemoglobin (Bld) [Mass/Vol] 11.6 g/dL Low 13.0 - 18.0 g/dL [facility] [employer] Immature granulocytes (Bld) [#/Vol] 0.0 10*3/uL NINF - 0.1 10*3/uL [facility] [employer] Immature granulocytes/100 WBC (Bld) 0.3 % 0.0 - 2.0 % [facility] Interpretation and review of laboratory results Abnormal [facility] Lymphocytes (Bld) [#/Vol] 2.4 10*3/uL 1.0 - 4.3 10*3/uL [facility] Lymphocytes/100 WBC (Bld) 38.5 % 15.0 - 45.0 % [facility] MCH (RBC) [Entitic mass] 32.0 pg 26.0 - 34.0 pg [facility] MCHC (RBC) [Mass/Vol] 35.2 % 30.5 - 36.0 % [facility] MCV (RBC) [Entitic vol] 91.2 fL 77.0 - 99.0 fL [facility] [employer] Monocytes (Bld) [#/Vol] 0.7 10*3/uL 0.0 - 0.9 10*3/uL [facility] Monocytes/100 WBC (Bld) 12.1 % 5.0 - 13.0 % [facility] Neutrophils (Bld) [#/Vol] 2.8 10*3/uL 1.8 - 7.5 10*3/uL [facility] Neutrophils/100 WBC (Bld) 46.3 % 38.0 - 82.0 % [facility] Nucleated RBC/100 WBC (Bld) [Ratio] 0.0 % [facility] Platelet mean volume (Bld) [Entitic vol] 9.3 fL 9.0 - 12.7 fL [facility] Platelets (Bld) [#/Vol] 128 10*3/uL Low 140 - 440 10*3/uL [facility] RBC (Bld) [#/Vol] 3.62 10*6/uL Low 4.40 - 5.9 0 10*6/uL [facility] WBC (Bld) [#/Vol] 6.1 10*3/uL 3.6 - 10.7 10*3/uL [facility] CBC WITH AUTO DIFFERENTIALon 01-24-2024 Basophils (Bld) [#/Vol] 0.0 10*3/uL Normal 0.0-0.2 [facility] Comment on above: Performed By: #### L [id number] ####Flame Channeler: ARA WRIGHT ([phone])[facility])[address] [place] [address] Basophils/100 WBC (Bld) 0.5 % Normal 0.0-2.0 [facility] Comment on above: Performed By: #### L [id number] ####Flame Channeler: ARA WRIGHT ([phone])[facility])[address] [place] [address] Eosinophils (Bld) [#/Vol] 0.1 10*3/uL Normal 0.0-0.5 [facility] Comment on above: Performed By: #### L [id number] ####Flame Channeler: ARA WRIGHT ([phone])[facility])[address] [place] [address] Eosinophils/100 WBC (Bld) 2.3 % Normal 0.0-6.0 [facility] Comment on above: Performed By: #### L [id number] ####Flame Channeler: ARA WRIGHT ([phone])[facility])[address] [place] [address] Erythrocyte distribution width (RBC) [Ratio] 13.9 % Normal 11.5-15.0 [facility] Comment on above: Performed By: #### L [id number] ####Flame Channeler: ARA WRIGHT ([phone])[facility])[address] [place] [address] Hematocrit (Bld) [Volume fraction] 33.0 % Low 40.0-52.0 [facility] Comment on above: Performed By: #### L [id number] ####Flame Channeler: ARA WRIGHT ([phone])[facility])[address] [place] [address] Hemoglobin (Bld) [Mass/Vol] 11.6 g/dL Low 13.0-18.0 [facility] Comment on above: Performed By: #### L [id number] ####Flame Channeler: ARA WRIGHT ([phone])[facility])[address] [place] [address] IMMATURE GRANS % 0.3 % Normal 0.0-2.0 [facility] Comment on above: Performed By: #### L [id number] ####Flame Channeler: ARA WRIGHT ([phone])[facility])[address] [place] [address] IMMATURE GRANS ABSOLUTE 0.0 10*3/uL Normal <0.1 [facility] Comment on above: Performed By: #### L [id number] ####Flame Channeler: ARA WRIGHT ([phone])[facility])[address] [place] [address] Lymphocytes (Bld) [#/Vol] 2.4 10*3/uL Normal 1.0-4.3 [facility] Comment on above: Performed By: #### L [id number] ####Flame Channeler: ARA WRIGHT ([id number])[facility])[address] [place] [address] Lymphocytes/100 WBC (Bld) 38.5 % Normal 15.0-45.0 [facility] Comment on above: Performed By: #### L [id number] ####Flame Channeler: ARA WRIGHT ([phone])[facility])[address] [place] [address] MCH (RBC) [Entitic mass] 32.0 pg Normal 26.0-34.0 [facility] Comment on above: Performed By: #### L [id number] ####Flame Channeler: ARA WRIGHT ([phone])[facility])[address] [place] [address] MCHC 35.2 % Normal 30.5-36.0 [facility] Comment on above: Performed By: #### L [id number] ####Flame Channeler: ARA WRIGHT ([phone])[facility])[address] [place] [address] MCV (RBC) [Entitic vol] 91.2 fL Normal 77.0-99.0 [facility] Comment on above: Performed By: #### L [id number] ####Flame Channeler: ARA WRIGHT ([phone])[facility])[address] [place] [address] Monocytes (Bld) [#/Vol] 0.7 10*3/uL Normal 0.0-0.9 [facility] Comment on above: Performed By: #### L [id number] ####Flame Channeler: ARA WRIGHT ([phone])[facility])[address] [place] [address] Monocytes/100 WBC (Bld) 12.1 % Normal 5.0-13.0 [facility] Comment on above: Performed By: #### L [id number] ####Flame Channeler: ARA WRIGHT ([phone])[facility])[address] [place] [address] NEUTROPHILS ABSOLUTE 2.8 10*3/uL Normal 1.8-7.5 [facility] Comment on above: Performed By: #### L [id number] ####Flame Channeler: ARA [id number])[facility] ([facility])[address] [place] [address] Neutrophils/100 WBC (Bld) 46.3 % Normal 38.0-82.0 [facility] Comment on above: Performed By: #### L [id number] ####Flame Channeler: ARA WRIGHT ([phone])[facility] ([facility])[address] [place] [address] NRBC 0.0 /100 WBCs Normal 0.0-2.0 [facility] Comment on above: Performed By: #### L [id number] ####Flame Channeler: ARA WRIGHT ([phone])[facility] ([facility])[address] [place] [address] Platelet mean volume (Bld) [Entitic vol] 9.3 fL Normal 9.0-12.7 [facility] Comment on above: Performed By: #### L [id number] ####Flame Channeler: ARA WRIGHT ([phone])[facility] ([facility])[address] [place] [address] Platelets (Bld) [#/Vol] 128 10*3/uL Low 140-440 [facility] Comment on above: Performed By: #### L [id number] ####Flame Channeler: ARA WRIGHT ([phone])[facility] ([facility])[address] [place] [address] RBC (Bld) [#/Vol] 3.62 10*6/uL Low 4.40-5.90 [facility] Comment on above: Performed By: #### L [id number] ####Flame Channeler: ARA WRIGHT ([phone])[facility] ([facility])[address] [place] [address] WBC (Bld) [#/Vol] 6.1 10*3/uL Normal 3.6-10.7 [facility] Comment on above: Performed By: #### L [id number] ####Flame Channeler: ARA WRIGHT ([phone])[facility] ([facility])[address] [place] [address] Laboratory - Chemistry and C hemistry - challengeon 01-24-2024 Magnesium [Mass/Vol] 1.6 mg/dL 1.6 - 2 .3 mg/dL [facility] MAGNESIUMon 01-24-2024 Magnesium [Mass/Vol] 1.6 mg/dL Normal 1.6-2.3 [facility] Comment on above: Performed By: #### L AB103, LAB15 ####Flame Channeler: ARA WRIGHT ([phone])[facility])[address] [place] [address] Magnesium [Mass/Vol]on 01-23 Interpretation and review of laboratory results Normal [facility] No Panel Informationon 01-23 [facility] Progress Noteon 01-24-2024 Progress Note Normal [facility] Progress Note Patient requesting A tivan stating so anxious and shaky Also requested tylenol and nausea med Normal [facility] BASIC METABOLIC PANELon Anion gap [Moles/Vol] 12 mmol/L Normal 3-13 [facility] Comment on above: Performed By: #### L AB15, [id number] ####Flame Channeler: ARA WRIGHT ([phone])[facility])[address] [place] [address] Calcium [Mass/Vol] 9.8 mg/dL Normal 8.4-10.4 [facility] Comment on above: Performed By: #### L AB15, [id number] ####Flame Channeler: ARA WRIGHT ([id number])[facility])[address] [place] [address] Chloride [Moles/Vol] 98 mmol/L Normal 98-107 [facility] Comment on above: Performed By: #### L AB15, [id number] ####Flame Channeler: ARA WRIGHT ([phone])[facility])[address] [place] [address] CO2 [Moles/Vol] 19 mmol/L Low 22-30 [facility] Comment on above: Performed By: #### L AB15, [id number] ####Flame Channeler: ARA WRIGHT ([phone])[facility] [place] [address] Creatinine [Mass/Vol] 0.90 mg/dL Normal 0.66-1.25 [facility] Comment on above: Performed By: #### L AB15, [id number] ####Flame Channeler: ARA WRIGHT ([phone])[facility] ([facility])[address] [place] [address] GLOMERULAR FILTRATION RATE ML/MIN/1.73 SQ M.PREDICTED >90.0 Normal >60.0 [facility] Comment on above: Result Comment: Calc ulation based on the Chronic Kidney Disease Epidemiology Collaboration (CKD-EPI) equation refit without adjustment for race Performed By: #### L AB15, SCH306 ####Flame Channeler: ARA WRIGHT ([id number])[facility] ([facility])[address] [place] [address] [place] Glucose [Mass/Vol] 136 mg/dL High 70-100 [facility] Comment on above: Performed By: #### L AB15, [id number] ####Flame Channeler: ARA WRIGHT ([phone])[facility] ([facility])[address] [place] [address] [place] Potassium [Moles/Vol] 3.9 mmol/L Normal 3.5-5.1 [facility] Comment on above: Performed By: #### L AB15, [id number] ####Flame Channeler: ARA WRIGHT ([id number])[facility] ([facility])[address] [place] [address] [place] Sodium [Moles/Vol] 130 mmol/L Low 135-145 [facility] Comment on above: Performed By: #### L AB15, [id number] ####Flame Channeler: ARA WRIGHT ([phone])[facility] ([facility])[address] [place] [address] [place] Urea nitrogen [Mass/Vol] 8 mg/dL Low 9-20 [facility] Comment on above: Performed By: #### L AB15, [id number] ####Flame Channeler: ARA WRIGHT ([id number])[facility] ([facility])[address] [place] [address] Basic metabolic 1998 panelon 01-23-2024 Anion gap [Moles/Vol] 12 mmol/L 3 - 13 mmol/L [facility] [employer] Calcium [Mass/Vol] 9.8 mg/dL 8.4 - 10. 4 mg/dL [facility] [employer] Chloride [Moles/Vol] 98 mmol/L 98 - 10 7 mmol/L [facility] [employer] CO2 [Moles/Vol] 19 mmol/L Low 22 - 30 mmol/L [facility] [employer] Creatinine [Mass/Vol] 0.90 mg/dL 0.66 - 1.25 mg/dL [facility] [employer] GFR/1.73 sq M.predicted MDRD (S/P/Bld) [Vol rate/Area] - PINF [facility] Comment on above: Calculation based on the Chronic Kidney Disease Epidemiology Collaboration (CKD-EPI) equation refit without adjustment for race Glucose [Mass/Vol] 136 mg/dL High 70 - 100 mg/dL [facility] [employer] Interpretation and review of laboratory results Abnormal [facility] [employer] Potassium [Moles/Vol] 3.9 mmol/L 3.5 - 5.1 mmol/L [facility] [employer] Sodium [Moles/Vol] 130 mmol/L Low 135 - 145 mmol/L [facility] [employer] Urea nitrogen [Mass/Vol] 8 mg/dL Low 9 - 20 mg/dL [facility] [employer] CBC W Auto Differential pane l (Bld)Ordered By: Rita Swan on 01-23-2024 Basophils (Bld) [#/Vol] 0.0 10*3/uL 0.0 - 0.2 10*3/uL [employer] Basophils/100 WBC (Bld) 0.4 % 0.0 - 2.0 % [facility] [employer] Eosinophils (Bld) [#/Vol] 0.2 10*3/uL 0.0 - 0.5 10*3/uL [employer] Eosinophils/100 WBC (Bld) 2.3 % 0.0 - 6.0 % [facility] [employer] Erythrocyte distribution width (RBC) [Ratio] 14.2 % 11.5 - 15.0 % [facility] [employer] Hematocrit (Bld) [Volume fraction] 36.0 % Low 40.0 - 52.0 % [facility] [employer] Hemoglobin (Bld) [Mass/Vol] 12.4 g/dL Low 13.0 - 18.0 g/dL [facility] Immature granulocytes (Bld) [#/Vol] 0.0 10*3/uL NINF - 0.1 10*3/uL [facility] Immature granulocytes/100 WBC (Bld) 0.4 % 0.0 - 2.0 % [facility] Interpretation and review of laboratory results Abnormal [facility] IPF 2 [facility] Lymphocytes (Bld) [#/Vol] 1.8 10*3/uL 1.0 - 4.3 10*3/uL [facility] Lymphocytes/100 WBC (Bld) 25.3 % 15.0 - 45.0 % [facility] MCH (RBC) [Entitic mass] 31.8 pg 26.0 - 34.0 pg [facility] MCHC (RBC) [Mass/Vol] 34.4 % 30.5 - 36.0 % [facility] MCV (RBC) [Entitic vol] 92.3 fL 77.0 - 99.0 fL [facility] Monocytes (Bld) [#/Vol] 1.0 10*3/uL High 0.0 - 0.9 10*3/uL [facility] Monocytes/100 WBC (Bld) 13.6 % High 5.0 - 13.0 % [facility] Neutrophils (Bld) [#/Vol] 4.1 10*3/uL 1.8 - 7.5 10*3/uL [facility] Neutrophils/100 WBC (Bld) 58.0 % 38.0 - 82.0 % [facility] Nucleated RBC/100 WBC (Bld) [Ratio] 0.0 % [facility] Platelet mean volume (Bld) [Entitic vol] 9.4 fL 9.0 - 12.7 fL [facility] Platelets (Bld) [#/Vol] 139 10*3/uL Low 140 - 440 10*3/uL [facility] RBC (Bld) [#/Vol] 3.90 10*6/uL Low 4.40 - 5.9 0 10*6/uL [facility] WBC (Bld) [#/Vol] 7.1 10*3/uL 3.6 - 10.7 10*3/uL [facility] CBC WITH AUTO DIFFERENTIALon 01-23-2024 Basophils (Bld) [#/Vol] 0.0 10*3/uL Normal 0.0-0.2 [facility] Comment on above: Performed By: #### L [id number] ####Flame Channeler: ARA WRIGHT ([phone])[facility])[address] [place] [address] Basophils/100 WBC (Bld) 0.4 % Normal 0.0-2.0 [facility] Comment on above: Performed By: #### L [id number] ####Flame Channeler: ARA WRIGHT ([phone])[facility])[address] [place] [address] Eosinophils (Bld) [#/Vol] 0.2 10*3/uL Normal 0.0-0.5 [facility] Comment on above: Performed By: #### L [id number] ####Flame Channeler: ARA WRIGHT ([phone])[facility])[address] [place] [address] Eosinophils/100 WBC (Bld) 2.3 % Normal 0.0-6.0 [facility] Comment on above: Performed By: #### L [id number] ####Flame Channeler: ARA WRIGHT ([phone])[facility])[address] [place] [address] Erythrocyte distribution width (RBC) [Ratio] 14.2 % Normal 11.5-15.0 [facility] Comment on above: Performed By: #### L [id number] ####Flame Channeler: ARA WRIGHT ([phone])[facility])[address] [place] [address] Hematocrit (Bld) [Volume fraction] 36.0 % Low 40.0-52.0 [facility] Comment on above: Performed By: #### L [id number] ####Flame Channeler: ARA WRIGHT ([phone])[facility])[address] [place] [address] Hemoglobin (Bld) [Mass/Vol] 12.4 g/dL Low 13.0-18.0 [facility] Comment on above: Performed By: #### L [id number] ####Flame Channeler: ARA WRIGHT ([phone])[facility])[address] [place] [address] IMMATURE GRANS % 0.4 % Normal 0.0-2.0 [facility] Comment on above: Performed By: #### L [id number] ####Flame Channeler: ARA WRIGHT ([phone])[facility])[address] [place] [address] IMMATURE GRANS ABSOLUTE 0.0 10*3/uL Normal <0.1 [facility] Comment on above: Performed By: #### L [id number] ####Flame Channeler: ARA WRIGHT ([phone])[address] IPF 2 Normal [facility] Comment on above: Performed By: #### L [id number] ####Flame Channeler: ARA WRIGHT ([phone])[facility])[address] [place] [address] Lymphocytes (Bld) [#/Vol] 1.8 10*3/uL Normal 1.0-4.3 [facility] Comment on above: Performed By: #### L [id number] ####Flame Channeler: ARA WRIGHT ([phone])[address] Lymphocytes/100 WBC (Bld) 25.3 % Normal 15.0-45.0 [facility] Comment on above: Performed By: #### L [id number] ####Flame Channeler: ARA WRIGHT ([phone])[facility])[address] [place] [address] MCH (RBC) [Entitic mass] 31.8 pg Normal 26.0-34.0 [facility] Comment on above: Performed By: #### L [id number] ####Flame Channeler: ARA WRIGHT ([phone])[address] MCHC 34.4 % Normal 30.5-36.0 [facility] Comment on above: Performed By: #### L [id number] ####Flame Channeler: ARA WRIGHT ([phone])[facility])[address] [place] [address] MCV (RBC) [Entitic vol] 92.3 fL Normal 77.0-99.0 [facility] Comment on above: Performed By: #### L [id number] ####Flame Channeler: ARA WRIGHT ([phone])[facility] ([facility])[address] [place] [address] Monocytes (Bld) [#/Vol] 1.0 10*3/uL High 0.0-0.9 [facility] Comment on above: Performed By: #### L [id number] ####Flame Channeler: ARA WRIGHT ([phone])[facility])[address] [place] [address] Monocytes/100 WBC (Bld) 13.6 % High 5.0-13.0 [facility] Comment on above: Performed By: #### L [id number] ####Flame Channeler: ARA WRIGHT ([phone])[facility])[address] [place] [address] NEUTROPHILS ABSOLUTE 4.1 10*3/uL Normal 1.8-7.5 [facility] Comment on above: Performed By: #### L [id number] ####Flame Channeler: ARA WRIGHT ([phone])[facility])[address] [place] [address] Neutrophils/100 WBC (Bld) 58.0 % Normal 38.0-82.0 [facility] Comment on above: Performed By: #### L [id number] ####Flame Channeler: ARA WRIGHT ([phone])[facility])[address] [place] [address] NRBC 0.0 /100 WBCs Normal 0.0-2.0 [facility] Comment on above: Performed By: #### L [id number] ####Flame Channeler: ARA WRIGHT ([phone])[facility] ([facility])[address] [place] [address] Platelet mean volume (Bld) [Entitic vol] 9.4 fL Normal 9.0-12.7 [facility] Comment on above: Performed By: #### L [id number] ####Flame Channeler: ARA WRIGHT ([phone])[facility] ([facility])[address] [place] [address] Platelets (Bld) [#/Vol] 139 10*3/uL Low 140-440 [facility] Comment on above: Performed By: #### L [id number] ####Flame Channeler: ARA WRIGHT ([phone])[facility] ([facility])[address] [place] [address] RBC (Bld) [#/Vol] 3.90 10*6/uL Low 4.40-5.90 [facility] Comment on above: Performed By: #### L [id number] ####Flame Channeler: ARA WRIGHT ([phone])[facility] ([facility])[address] [place] [address] WBC (Bld) [#/Vol] 7.1 10*3/uL Normal 3.6-10.7 [facility] Comment on above: Performed By: #### L [id number] ####Flame Channeler: ARA WRIGHT ([phone])[facility] ([facility])[address] [place] [address] Laboratory - Chemistry and C hemistry - challengeon 01-23-2024 Magnesium [Mass/Vol] 1.7 mg/dL 1.6 - 2 .3 mg/dL [facility] MAGNESIUMon 01-23-2024 Magnesium [Mass/Vol] 1.7 mg/dL Normal 1.6-2.3 [facility] Comment on above: Performed By: #### L [id number], [id number] ####Flame Channeler: ARA WRIGHT ([phone])[facility] ([facility])[address] [place] [address] Magnesium [Mass/Vol]on 01-22 Interpretation and review of laboratory results Normal [facility] No Panel Informationon 01-22 [facility] Progress Noteon 01-23-2024 Progress Note Normal [facility] C. DIFFICILE BY PCR WITH REF BEATRICE TO EIAon 01-22-2024 C. DIFFICILE BY PCR WITH REFLEX TO EIA C. DIFFICILE TOXIN PCR Reference Not Detected Not Detected ORDER COMMENTS: C. difficile infection is unlikely to be present. Methodology: Real-time PCR Normal [facility] Comment on above: Performed By: #### L [id number] ####Flame Channeler: ARA WRIGHT ([id number])[facility])[address] [place] [address] C. difficile toxin genes SHANE +probe Ql (Stl)on 01-22-2024 C. difficile toxin B tcdB gene SHANE+probe Ql (Stl) Not detected Not Detected [facility] Interpretation and review of laboratory results Normal [facility] C. difficile infecti on is unlikely to be present. Methodology: Real-time PCR [facility] CARECOORDon 01-22-2024 CARECOORD Normal [facility] CARECOORD Normal [facility] CBC W Auto Differential pane l (Bld)on 01-22-2024 Basophils (Bld) [#/Vol] 0.0 10*3/uL 0.0 - 0.2 10*3/uL [facility] Basophils/100 WBC (Bld) 0.4 % 0.0 - 2.0 % [facility] Eosinophils (Bld) [#/Vol] 0.1 10*3/uL 0.0 - 0.5 10*3/uL [facility] Eosinophils/100 WBC (Bld) 1.5 % 0.0 - 6.0 % [facility] Erythrocyte distribution width (RBC) [Ratio] 14.0 % 11.5 - 15.0 % [facility] Hematocrit (Bld) [Volume fraction] 30.1 % Low 40.0 - 52.0 % [facility] Hemoglobin (Bld) [Mass/Vol] 10.6 g/dL Low 13.0 - 18.0 g/dL [facility] Immature granulocytes (Bld) [#/Vol] 0.0 10*3/uL NINF - 0.1 10*3/uL [facility] Immature granulocytes/100 WBC (Bld) 0.2 % 0.0 - 2.0 % [facility] Interpretation and review of laboratory results Abnormal [facility] IPF 3 [facility] Lymphocytes (Bld) [#/Vol] 1.7 10*3/uL 1.0 - 4.3 10*3/uL [facility] Lymphocytes/100 WBC (Bld) 35.7 % 15.0 - 45.0 % [facility] MCH (RBC) [Entitic mass] 32.5 pg 26.0 - 34.0 pg [facility] MCHC (RBC) [Mass/Vol] 35.2 % 30.5 - 36.0 % [facility] MCV (RBC) [Entitic vol] 92.3 fL 77.0 - 99.0 fL [facility] Monocytes (Bld) [#/Vol] 0.7 10*3/uL 0.0 - 0.9 10*3/uL [facility] Monocytes/100 WBC (Bld) 13.9 % High 5.0 - 13.0 % [facility] Neutrophils (Bld) [#/Vol] 2.3 10*3/uL 1.8 - 7.5 10*3/uL [facility] Neutrophils/100 WBC (Bld) 48.3 % 38.0 - 82.0 % [facility] Nucleated RBC/100 WBC (Bld) [Ratio] 0.0 % [facility] Platelet mean volume (Bld) [Entitic vol] 10.2 fL 9.0 - 12.7 fL [facility] Platelets (Bld) [#/Vol] 83 10*3/uL Low 140 - 440 10*3/uL [facility] RBC (Bld) [#/Vol] 3.26 10*6/uL Low 4.40 - 5.9 0 10*6/uL [facility] WBC (Bld) [#/Vol] 4.7 10*3/uL 3.6 - 10.7 10*3/uL [facility] CBC WITH AUTO DIFFERENTIALon 01-22-2024 Basophils (Bld) [#/Vol] 0.0 10*3/uL Normal 0.0-0.2 [facility] Comment on above: Performed By: #### L [id number] ####Flame Channeler: ARA WRIGHT ([phone])[facility])[address] [place] [address] Basophils/100 WBC (Bld) 0.4 % Normal 0.0-2.0 [facility] Comment on above: Performed By: #### L [id number] ####Flame Channeler: ARA WRIGHT ([phone])[facility])[address] [place] [address] Eosinophils (Bld) [#/Vol] 0.1 10*3/uL Normal 0.0-0.5 [facility] Comment on above: Performed By: #### L [id number] ####Flame Channeler: ARA WRIGHT ([phone])[address] Eosinophils/100 WBC (Bld) 1.5 % Normal 0.0-6.0 [facility] Comment on above: Performed By: #### L [id number] ####Flame Channeler: ARA WRIGHT ([phone])[facility])[address] [place] [address] Erythrocyte distribution width (RBC) [Ratio] 14.0 % Normal 11.5-15.0 [facility] Comment on above: Performed By: #### L [id number] ####Flame Channeler: ARA WRIGHT ([id number])[address] Hematocrit (Bld) [Volume fraction] 30.1 % Low 40.0-52.0 [facility] Comment on above: Performed By: #### L [id number] ####Flame Channeler: ARA WRIGHT ([phone])[facility])[address] [place] [address] Hemoglobin (Bld) [Mass/Vol] 10.6 g/dL Low 13.0-18.0 [facility] Comment on above: Performed By: #### L [id number] ####Flame Channeler: ARA WRIGHT ([phone])[facility])[address] [place] [address] IMMATURE GRANS % 0.2 % Normal 0.0-2.0 [facility] Comment on above: Performed By: #### L [id number] ####Flame Channeler: ARA WRIGHT ([phone])[facility])[address] [place] [address] IMMATURE GRANS ABSOLUTE 0.0 10*3/uL Normal <0.1 [facility] Comment on above: Performed By: #### L [id number] ####Flame Channeler: ARA WRIGHT ([phone])[facility])[address] [place] [address] [place] IPF 3 Normal [facility] Comment on above: Performed By: #### L [id number] ####Flame Channeler: ARA WRIGHT ([id number])[facility])[address] [place] [address] Lymphocytes (Bld) [#/Vol] 1.7 10*3/uL Normal 1.0-4.3 [facility] Comment on above: Performed By: #### L [id number] ####Flame Channeler: ARA WRIGHT ([phone])[facility])[address] [place] [address] Lymphocytes/100 WBC (Bld) 35.7 % Normal 15.0-45.0 [facility] Comment on above: Performed By: #### L [id number] ####Flame Channeler: ARA WRIGHT ([phone])[facility])[address] [place] [address] MCH (RBC) [Entitic mass] 32.5 pg Normal 26.0-34.0 [facility] Comment on above: Performed By: #### L [id number] ####Flame Channeler: ARA WRIGHT ([phone])[facility])[address] [place] [address] MCHC 35.2 % Normal 30.5-36.0 [facility] Comment on above: Performed By: #### L [id number] ####Flame Channeler: ARA WRIGHT ([phone])[facility] ([facility])[address] [place] [address] MCV (RBC) [Entitic vol] 92.3 fL Normal 77.0-99.0 [facility] Comment on above: Performed By: #### L [id number] ####Flame Channeler: ARA WRIGHT ([id number])[facility] ([facility])[address] [place] [address] Monocytes (Bld) [#/Vol] 0.7 10*3/uL Normal 0.0-0.9 [facility] Comment on above: Performed By: #### L [id number] ####Flame Channeler: ARA WRIGHT ([id number])[facility] ([facility])[address] [place] [address] Monocytes/100 WBC (Bld) 13.9 % High 5.0-13.0 [facility] Comment on above: Performed By: #### L [id number] ####Flame Channeler: ARA WRIGHT ([id number])[facility] ([facility])[address] [place] [address] NEUTROPHILS ABSOLUTE 2.3 10*3/uL Normal 1.8-7.5 [facility] Comment on above: Performed By: #### L [id number] ####Flame Channeler: ARA WRIGHT ([phone])[facility] ([facility])[address] [place] [address] Neutrophils/100 WBC (Bld) 48.3 % Normal 38.0-82.0 [facility] Comment on above: Performed By: #### L [id number] ####Flame Channeler: ARA WRIGHT ([phone])[facility])[address] [place] [address] NRBC 0.0 /100 WBCs Normal 0.0-2.0 [facility] Comment on above: Performed By: #### L [id number] ####Flame Channeler: ARA WRIGHT ([phone])[facility] ([facility])[address] [place] [address] Platelet mean volume (Bld) [Entitic vol] 10.2 fL Normal 9.0-12.7 [facility] Comment on above: Performed By: #### L [id number] ####Flame Channeler: ARA WRIGHT ([id number])[facility])[address] [place] [address] Platelets (Bld) [#/Vol] 83 10*3/uL Low 140-440 [facility] Comment on above: Performed By: #### L [id number] ####Flame Channeler: ARA WRIGHT ([id number])[facility])[address] [place] [address] RBC (Bld) [#/Vol] 3.26 10*6/uL Low 4.40-5.90 [facility] Comment on above: Performed By: #### L [id number] ####Flame Channeler: ARA WRIGHT ([phone])[facility] ([facility])[address] [place] [address] WBC (Bld) [#/Vol] 4.7 10*3/uL Normal 3.6-10.7 [facility] Comment on above: Performed By: #### L [id number] ####Flame Channeler: ARA WRIGHT ([phone])[facility])[address] [place] [address] COMPREHENSIVE METABOLIC PANE Peter 01-22-2024 Albumin [Mass/Vol] 3.9 g/dL Normal 3.5-5.0 [facility] Comment on above: Performed By: #### L AB103, LAB17 ####Flame Channeler: ARA WRIGHT ([phone])[facility])[address] [place] [address] ALP [Catalytic activity/Vol] 43 U/L Normal 38-126 [facility] Comment on above: Performed By: #### L AB103, LAB17 ####Flame Channeler: ARA WRIGHT ([phone])[facility])[address] [place] [address] [place] ALT [Catalytic activity/Vol] 20 U/L Normal 0-49 [facility] Comment on above: Performed By: #### L ADRIANNA, LAB17 ####Flame Channeler: ARA WRIGHT ([phone])[facility] ([facility])[address] [place] [address] Anion gap [Moles/Vol] 9 mmol/L Normal 3-13 [facility] Comment on above: Performed By: #### L ADRIANNA, LAB17 ####Flame Channeler: ARA WRIGHT ([phone])[facility] ([facility])[address] [place] [address] AST [Catalytic activity/Vol] 29 U/L Normal 15-46 [facility] Comment on above: Performed By: #### Popeye RODAS, LAB17 ####Flame Channeler: ARA WRIGHT ([phone])[facility] ([facility])[address] [place] [address] Bilirubin [Mass/Vol] 0.4 mg/dL Normal 0.2-1.3 [facility] Comment on above: Performed By: #### Popeye RODAS, LAB17 ####Flame Channeler: ARA WRIGHT ([phone])[facility])[address] [place] [address] Calcium [Mass/Vol] 9.2 mg/dL Normal 8.4-10.4 [facility] Comment on above: Performed By: #### Popeye RODAS, LAB17 ####Flame Channeler: ARA WRIGHT ([phone])[facility])[address] [place] [address] [place] Chloride [Moles/Vol] 102 mmol/L Normal 98-107 [facility] Comment on above: Performed By: #### L AB103, LAB17 ####Flame Channeler: ARA WRIGHT ([phone])[facility])[address] [place] [address] [place] CO2 [Moles/Vol] 20 mmol/L Low 22-30 [facility] Comment on above: Performed By: #### L AB103, LAB17 ####Flame Channeler: ARA WRIGHT ([phone])[facility])[address] [place] [address] Creatinine [Mass/Vol] 0.71 mg/dL Normal 0.66-1.25 [facility] Comment on above: Performed By: #### L AB103, LAB17 ####Flame Channeler: ARA WRIGHT ([phone])[facility])[address] [place] [address] GLOMERULAR FILTRATION RATE ML/MIN/1.73 SQ M.PREDICTED >90.0 Normal >60.0 [facility] Comment on above: Result Comment: Calc ulation based on the Chronic Kidney Disease Epidemiology Collaboration (CKD-EPI) equation refit without adjustment for race Performed By: #### L ADRIANNA, LAB17 ####Flame Channeler: ARA WRIGHT ([phone])[facility] ([facility])[address] [place] [address] Glucose [Mass/Vol] 111 mg/dL High 70-100 [facility] Comment on above: Performed By: #### L 103, LAB17 ####Flame Channeler: ARA WRIGHT ([phone])[facility])[address] [place] [address] Potassium [Moles/Vol] 3.4 mmol/L Low 3.5-5.1 [facility] Comment on above: Performed By: #### L ABJenn, LAB17 ####Flame Channeler: ARA WRIGHT ([phone])[facility])[address] [place] [address] Protein [Mass/Vol] 6.8 g/dL Normal 6.3-8.2 [facility] Comment on above: Performed By: #### L AB103, LAB17 ####Flame Channeler: ARA WRIGHT ([phone])[facility])[address] [place] [address] Sodium [Moles/Vol] 132 mmol/L Low 135-145 [facility] Comment on above: Performed By: #### L AB103, LAB17 ####Flame Channeler: ARA WRIGHT ([phone])[facility] ([facility])[address] [place] [address] Urea nitrogen [Mass/Vol] 13 mg/dL Normal 9-20 [facility] Comment on above: Performed By: #### L AB103, LAB17 ####Flame Channeler: ARA WRIGHT ([phone])[facility] [place] [address] Comprehensive metabolic 1998 panelon 01-22-2024 Albumin [Mass/Vol] 3.9 g/dL 3.5 - 5.0 g/dL [facility] ALP [Catalytic activity/Vol] 43 U/L 38 - 126 U/L [facility] ALT [Catalytic activity/Vol] 20 U/L 0 - 49 U/L [facility] Anion gap [Moles/Vol] 9 mmol/L 3 - 13 mmol/L [facility] AST [Catalytic activity/Vol] 29 U/L 15 - 46 U/L [facility] Bilirubin [Mass/Vol] 0.4 mg/dL 0.2 - 1 .3 mg/dL [facility] Calcium [Mass/Vol] 9.2 mg/dL 8.4 - 10. 4 mg/dL [facility] Chloride [Moles/Vol] 102 mmol/L 98 - 10 7 mmol/L [facility] CO2 [Moles/Vol] 20 mmol/L Low 22 - 30 mmol/L [facility] Creatinine [Mass/Vol] 0.71 mg/dL 0.66 - 1.25 mg/dL [facility] GFR/1.73 sq M.predicted MDRD (S/P/Bld) [Vol rate/Area] - PINF [facility] Comment on above: Calculation based on the Chronic Kidney Disease Epidemiology Collaboration (CKD-EPI) equation refit without adjustment for race Glucose [Mass/Vol] 111 mg/dL High 70 - 100 mg/dL [facility] Interpretation and review of laboratory results Abnormal [facility] Potassium [Moles/Vol] 3.4 mmol/L Low 3.5 - 5.1 mmol/L [facility] Protein [Mass/Vol] 6.8 g/dL 6.3 - 8.2 g/dL [facility] Sodium [Moles/Vol] 132 mmol/L Low 135 - 145 mmol/L [facility] Urea nitrogen [Mass/Vol] 13 mg/dL 9 - 20 mg/dL [facility] Consulton 01-22-2024 Consult Normal [facility] IDNon 01-22-2024 IDN Normal [facility] Laboratory - Chemistry and C hemistry - challengeon 01-22-2024 Magnesium [Mass/Vol] 1.5 mg/dL Low 1.6 - 2 .3 mg/dL [facility] MAGNESIUMon 01-22-2024 Magnesium [Mass/Vol] 1.5 mg/dL Low 1.6-2.3 [facility] Comment on above: Performed By: #### L AB103, LAB17 ####Flame Channeler: ARA WRIGHT ([phone])[address] Magnesium [Mass/Vol]on 01-21 Interpretation and review of laboratory results Abnormal [facility] Progress Noteon 01-22-2024 Progress Note Normal [facility] Progress Note Normal [facility] Progress Note Normal [facility] CARECOORDon 01-21-2024 CARECOORD Normal [facility] CBC W Auto Differential pane l (Bld)on 01-21-2024 Basophils (Bld) [#/Vol] 0.0 10*3/uL 0.0 - 0.2 10*3/uL [facility] Basophils/100 WBC (Bld) 0.4 % 0.0 - 2.0 % [facility] Eosinophils (Bld) [#/Vol] 0.1 10*3/uL 0.0 - 0.5 10*3/uL [facility] Eosinophils/100 WBC (Bld) 1.3 % 0.0 - 6.0 % [facility] Erythrocyte distribution width (RBC) [Ratio] 13.9 % 11.5 - 15.0 % [facility] Hematocrit (Bld) [Volume fraction] 33.8 % Low 40.0 - 52.0 % [facility] Hemoglobin (Bld) [Mass/Vol] 11.8 g/dL Low 13.0 - 18.0 g/dL [facility] Immature granulocytes (Bld) [#/Vol] 0.0 10*3/uL NINF - 0.1 10*3/uL [facility] Immature granulocytes/100 WBC (Bld) 0.4 % 0.0 - 2.0 % [facility] Interpretation and review of laboratory results Abnormal [facility] IPF 3 [facility] Lymphocytes (Bld) [#/Vol] 1.5 10*3/uL 1.0 - 4.3 10*3/uL [facility] Lymphocytes/100 WBC (Bld) 33.6 % 15.0 - 45.0 % [facility] MCH (RBC) [Entitic mass] 31.8 pg 26.0 - 34.0 pg [facility] MCHC (RBC) [Mass/Vol] 34.9 % 30.5 - 36.0 % [facility] MCV (RBC) [Entitic vol] 91.1 fL 77.0 - 99.0 fL [facility] Monocytes (Bld) [#/Vol] 0.5 10*3/uL 0.0 - 0.9 10*3/uL [facility] Monocytes/100 WBC (Bld) 11.4 % 5.0 - 13.0 % [facility] Neutrophils (Bld) [#/Vol] 2.4 10*3/uL 1.8 - 7.5 10*3/uL [facility] Neutrophils/100 WBC (Bld) 52.9 % 38.0 - 82.0 % [facility] Nucleated RBC/100 WBC (Bld) [Ratio] 0.0 % [facility] Platelet mean volume (Bld) [Entitic vol] 10.0 fL 9.0 - 12.7 fL [facility] Platelets (Bld) [#/Vol] 82 10*3/uL Low 140 - 440 10*3/uL [facility] RBC (Bld) [#/Vol] 3.71 10*6/uL Low 4.40 - 5.9 0 10*6/uL [facility] WBC (Bld) [#/Vol] 4.6 10*3/uL 3.6 - 10.7 10*3/uL [facility] CBC WITH AUTO DIFFERENTIALon 01-21-2024 Basophils (Bld) [#/Vol] 0.0 10*3/uL Normal 0.0-0.2 [facility] Comment on above: Performed By: #### L [id number] ####Flame Channeler: ARA WRIGHT ([phone])[facility])[address] [place] [address] Basophils/100 WBC (Bld) 0.4 % Normal 0.0-2.0 [facility] Comment on above: Performed By: #### L [id number] ####Flame Channeler: ARA WRIGHT ([id number])[facility])[address] [place] [address] Eosinophils (Bld) [#/Vol] 0.1 10*3/uL Normal 0.0-0.5 [facility] Comment on above: Performed By: #### L [id number] ####Flame Channeler: ARA WRIGHT ([id number])[address] Eosinophils/100 WBC (Bld) 1.3 % Normal 0.0-6.0 [facility] Comment on above: Performed By: #### L [id number] ####Flame Channeler: ARA WRIGHT ([id number])[facility])[address] [place] [address] Erythrocyte distribution width (RBC) [Ratio] 13.9 % Normal 11.5-15.0 [facility] Comment on above: Performed By: #### L [id number] ####Flame Channeler: ARA WRIGHT ([id number])[address] Hematocrit (Bld) [Volume fraction] 33.8 % Low 40.0-52.0 [facility] Comment on above: Performed By: #### L [id number] ####Flame Channeler: ARA WRIGHT ([id number])[address] Hemoglobin (Bld) [Mass/Vol] 11.8 g/dL Low 13.0-18.0 [facility] Comment on above: Performed By: #### L [id number] ####Flame Channeler: ARA WRIGHT ([id number])[facility])[address] [place] [address] IMMATURE GRANS % 0.4 % Normal 0.0-2.0 [facility] Comment on above: Performed By: #### L [id number] ####Flame Channeler: ARA WRIGHT ([id number])[facility])[address] [place] [address] IMMATURE GRANS ABSOLUTE 0.0 10*3/uL Normal <0.1 [facility] Comment on above: Performed By: #### L [id number] ####Flame Channeler: ARA WRIGHT ([id number])[facility])[address] [place] [address] [place] IPF 3 Normal [facility] Comment on above: Performed By: #### L [id number] ####Flame Channeler: ARA WRIGHT ([phone])[facility])[address] [place] [address] Lymphocytes (Bld) [#/Vol] 1.5 10*3/uL Normal 1.0-4.3 [facility] Comment on above: Performed By: #### L [id number] ####Flame Channeler: ARA WRIGHT ([id number])[address] Lymphocytes/100 WBC (Bld) 33.6 % Normal 15.0-45.0 [facility] Comment on above: Performed By: #### L [id number] ####Flame Channeler: ARA WRIGHT ([phone])[facility])[address] [place] [address] MCH (RBC) [Entitic mass] 31.8 pg Normal 26.0-34.0 [facility] Comment on above: Performed By: #### L [id number] ####Flame Channeler: ARA WRIGHT ([id number])[address] MCHC 34.9 % Normal 30.5-36.0 [facility] Comment on above: Performed By: #### L [id number] ####Flame Channeler: ARA WRIGHT ([phone])[facility] ([facility])[address] [place] [address] MCV (RBC) [Entitic vol] 91.1 fL Normal 77.0-99.0 [facility] Comment on above: Performed By: #### L [id number] ####Flame Channeler: ARA WRIGHT ([phone])[facility] ([facility])[address] [place] [address] Monocytes (Bld) [#/Vol] 0.5 10*3/uL Normal 0.0-0.9 [facility] Comment on above: Performed By: #### L [id number] ####Flame Channeler: ARA WRIGHT ([id number])[facility])[address] [place] [address] Monocytes/100 WBC (Bld) 11.4 % Normal 5.0-13.0 [facility] Comment on above: Performed By: #### L [id number] ####Flame Channeler: ARA WRIGHT ([id number])[facility] ([facility])[address] [place] [address] NEUTROPHILS ABSOLUTE 2.4 10*3/uL Normal 1.8-7.5 [facility] Comment on above: Performed By: #### L [id number] ####Flame Channeler: ARA WRIGHT ([phone])[facility])[address] [place] [address] Neutrophils/100 WBC (Bld) 52.9 % Normal 38.0-82.0 [facility] Comment on above: Performed By: #### L [id number] ####Flame Channeler: ARA WRIGHT ([phone])[facility] ([facility])[address] [place] [address] [place] NRBC 0.0 /100 WBCs Normal 0.0-2.0 [facility] Comment on above: Performed By: #### L [id number] ####Flame Channeler: ARA WRIGHT ([phone])[facility])[address] [place] [address] Platelet mean volume (Bld) [Entitic vol] 10.0 fL Normal 9.0-12.7 [facility] Comment on above: Performed By: #### L [id number] ####Flame Channeler: ARA WRIGHT ([id number])[facility] ([facility])[address] [place] [address] Platelets (Bld) [#/Vol] 82 10*3/uL Low 140-440 [facility] Comment on above: Performed By: #### L [id number] ####Flame Channeler: ARA WRIGHT ([id number])[facility] ([facility])[address] [place] [address] RBC (Bld) [#/Vol] 3.71 10*6/uL Low 4.40-5.90 [facility] Comment on above: Performed By: #### L [id number] ####Flame Channeler: ARA WRIGHT ([id number])[facility] ([facility])[address] [place] [address] WBC (Bld) [#/Vol] 4.6 10*3/uL Normal 3.6-10.7 [facility] Comment on above: Performed By: #### L [id number] ####Flame Channeler: ARA WRIGHT ([id number])[facility] ([facility])[address] [place] [address] COMPREHENSIVE METABOLIC PANE Peter 01-21-2024 Albumin [Mass/Vol] 4.0 g/dL Normal 3.5-5.0 [facility] Comment on above: Performed By: #### L [id number] ####Flame Channeler: ARA WRIGHT ([phone])[facility])[address] [place] [address] ALP [Catalytic activity/Vol] 56 U/L Normal 38-126 [facility] Comment on above: Performed By: #### L [id number] ####Flame Channeler: ARA WRIGHT ([id number])[facility])[address] [place] [address] ALT [Catalytic activity/Vol] 22 U/L Normal 0-49 [facility] Comment on above: Performed By: #### L [id number] ####Flame Channeler: ARA WRIGHT ([phone])[facility] ([facility])[address] [place] [address] Anion gap [Moles/Vol] 7 mmol/L Normal 3-13 [facility] Comment on above: Performed By: #### L [id number] ####Flame Channeler: ARA WRIGHT ([id number])[facility] ([facility])[address] [place] [address] AST [Catalytic activity/Vol] 33 U/L Normal 15-46 [facility] Comment on above: Performed By: #### L [id number] ####Flame Channeler: ARA WRIGHT ([id number])[facility] ([facility])[address] [place] [address] Bilirubin [Mass/Vol] 0.5 mg/dL Normal 0.2-1.3 [facility] Comment on above: Performed By: #### L [id number] ####Flame Channeler: ARA WRIGHT ([phone])[facility] ([facility])[address] [place] [address] Calcium [Mass/Vol] 9.6 mg/dL Normal 8.4-10.4 [facility] Comment on above: Performed By: #### L [id number] ####Flame Channeler: ARA WRIGHT ([id number])[facility] ([facility])[address] [place] [address] [place] Chloride [Moles/Vol] 104 mmol/L Normal 98-107 [facility] Comment on above: Performed By: #### L [id number] ####Flame Channeler: ARA WRIGHT ([id number])[facility] ([facility])[address] [place] [address] [place] CO2 [Moles/Vol] 22 mmol/L Normal 22-30 [facility] Comment on above: Performed By: #### L [id number] ####Flame Channeler: ARA WRIGHT ([id number])[facility] ([facility])[address] [place] [address] Creatinine [Mass/Vol] 0.75 mg/dL Normal 0.66-1.25 [facility] Comment on above: Performed By: #### L [id number] ####Flame Channeler: ARA WRIGHT ([id number])[facility] ([facility])[address] [place] [address] GLOMERULAR FILTRATION RATE ML/MIN/1.73 SQ M.PREDICTED >90.0 Normal >60.0 [facility] Comment on above: Result Comment: Calc ulation based on the Chronic Kidney Disease Epidemiology Collaboration (CKD-EPI) equation refit without adjustment for race Performed By: #### L [id number] ####Flame Channeler: ARA WRIGHT ([phone])[facility] ([facility])[address] [place] [address] Glucose [Mass/Vol] 101 mg/dL High 70-100 [facility] Comment on above: Performed By: #### L [id number] ####Flame Channeler: ARA WRIGHT ([id number])[facility] ([facility])[address] [place] [address] Potassium [Moles/Vol] 3.7 mmol/L Normal 3.5-5.1 [facility] Comment on above: Performed By: #### L [id number] ####Flame Channeler: ARA WRIGHT ([id number])[facility] ([facility])[address] [place] [address] Protein [Mass/Vol] 7.1 g/dL Normal 6.3-8.2 [facility] Comment on above: Performed By: #### L [id number] ####Flame Channeler: ARA WRIGHT ([id number])[facility] ([facility])[address] [place] [address] [place] Sodium [Moles/Vol] 133 mmol/L Low 135-145 [facility] Comment on above: Performed By: #### L [id number] ####Flame Channeler: ARA WRIGHT ([id number])[facility] ([facility])[address] [place] [address] Urea nitrogen [Mass/Vol] 14 mg/dL Normal 9-20 [facility] Comment on above: Performed By: #### L [id number] ####Flame Channeler: ARA WRIGHT ([id number])[facility] ([address] Comprehensive metabolic 1998 panelon 01-21-2024 Albumin [Mass/Vol] 4.0 g/dL 3.5 - 5.0 g/dL [facility] ALP [Catalytic activity/Vol] 56 U/L 38 - 126 U/L [facility] ALT [Catalytic activity/Vol] 22 U/L 0 - 49 U/L [facility] Anion gap [Moles/Vol] 7 mmol/L 3 - 13 mmol/L [facility] AST [Catalytic activity/Vol] 33 U/L 15 - 46 U/L [facility] Bilirubin [Mass/Vol] 0.5 mg/dL 0.2 - 1 .3 mg/dL [facility] Calcium [Mass/Vol] 9.6 mg/dL 8.4 - 10. 4 mg/dL [facility] Chloride [Moles/Vol] 104 mmol/L 98 - 10 7 mmol/L [facility] CO2 [Moles/Vol] 22 mmol/L 22 - 30 mmol/L [facility] Creatinine [Mass/Vol] 0.75 mg/dL 0.66 - 1.25 mg/dL [facility] GFR/1.73 sq M.predicted MDRD (S/P/Bld) [Vol rate/Area] - PINF [facility] Comment on above: Calculation based on the Chronic Kidney Disease Epidemiology Collaboration (CKD-EPI) equation refit without adjustment for race Glucose [Mass/Vol] 101 mg/dL High 70 - 100 mg/dL [facility] Interpretation and review of laboratory results Abnormal [facility] Potassium [Moles/Vol] 3.7 mmol/L 3.5 - 5.1 mmol/L [facility] Protein [Mass/Vol] 7.1 g/dL 6.3 - 8.2 g/dL [facility] Sodium [Moles/Vol] 133 mmol/L Low 135 - 145 mmol/L [facility] Urea nitrogen [Mass/Vol] 14 mg/dL 9 - 20 mg/dL [facility] No Panel Informationon 01-20 No evidence of deep vein or superficial vein thrombosis in the right lower extremity. Vessels demonstrate normal compressibility, color filling, and phasic and spontaneous flow. No evidence of deep vein or superficial vein thrombosis in the left lower extremity. Vessels demonstrate normal compressibility, color filling, and phasic and spontaneous flow. Right Lower Venous No evidence of deep vein or superficial vein thrombosis. The common femoral, saphenofemoral junction, femoral, popliteal, gastrocnemius, soleal, greater saphenous, posterior tibial, and peroneal veins were imaged in the transverse view and showed normal compressibility. The common femoral, middle femoral, and popliteal veins were imaged in the longitudinal view and showed normal color filling and normal phasic and spontaneous flow. Left Lower Venous No evidence of deep vein or superficial vein thrombosis. The common femoral, saphenofemoral junction, femoral, popliteal, gastrocnemius, soleal, greater saphenous, posterior tibial, and peroneal veins were imaged in the transverse view and showed normal compressibility. The common femoral, middle femoral, and popliteal veins were imaged in the longitudinal view and showed normal color filling and normal phasic and spontaneous flow. Construction Grip Details A chaudhry scale, color Doppler imaging and spectral Doppler analysis ultrasound was performed. During the study longitudinal views were obtained. The exam was performed with the patient in the supine position. Overall the study quality was adequate. Study was technically difficult due to: bedside exam. CV CPACS Nursing Noteon 01-21-2024 Nursing Note Normal [facility] Progress Noteon 01-21-2024 Progress Note Normal [facility] Progress Note Normal [facility] CARECOORDon 01-20-2024 [place] Called pt to discuss SDOH resources; pt did not answer phone. Will reach out again; noted PT recommending snf. Normal [facility] [place] Normal [facility] CBC W Auto Differential pane l (Bld)Ordered By: Oksana Hurst on 01-20-2024 Basophils (Bld) [#/Vol] 0.0 10*3/uL 0.0 - 0.2 10*3/uL [facility] Basophils/100 WBC (Bld) 0.4 % 0.0 - 2.0 % [facility] Eosinophils (Bld) [#/Vol] 0.1 10*3/uL 0.0 - 0.5 10*3/uL [facility] Eosinophils/100 WBC (Bld) 1.7 % 0.0 - 6.0 % [facility] Erythrocyte distribution width (RBC) [Ratio] 13.6 % 11.5 - 15.0 % [facility] Hematocrit (Bld) [Volume fraction] 33.2 % Low 40.0 - 52.0 % [facility] Hemoglobin (Bld) [Mass/Vol] 11.7 g/dL Low 13.0 - 18.0 g/dL [facility] Immature granulocytes (Bld) [#/Vol] 0.0 10*3/uL NINF - 0.1 10*3/uL [facility] Immature granulocytes/100 WBC (Bld) 0.4 % 0.0 - 2.0 % [facility] Interpretation and review of laboratory results Abnormal [facility] IPF 4 [facility] Lymphocytes (Bld) [#/Vol] 1.9 10*3/uL 1.0 - 4.3 10*3/uL [facility] Lymphocytes/100 WBC (Bld) 35.7 % 15.0 - 45.0 % [facility] MCH (RBC) [Entitic mass] 32.0 pg 26.0 - 34.0 pg [facility] MCHC (RBC) [Mass/Vol] 35.2 % 30.5 - 36.0 % [facility] MCV (RBC) [Entitic vol] 90.7 fL 77.0 - 99.0 fL [facility] Monocytes (Bld) [#/Vol] 0.6 10*3/uL 0.0 - 0.9 10*3/uL [facility] Monocytes/100 WBC (Bld) 11.3 % 5.0 - 13.0 % [facility] Neutrophils (Bld) [#/Vol] 2.7 10*3/uL 1.8 - 7.5 10*3/uL [facility] Neutrophils/100 WBC (Bld) 50.5 % 38.0 - 82.0 % [facility] Nucleated RBC/100 WBC (Bld) [Ratio] 0.0 % [facility] Platelet mean volume (Bld) [Entitic vol] 10.1 fL 9.0 - 12.7 fL [facility] Platelets (Bld) [#/Vol] 79 10*3/uL Low 140 - 440 10*3/uL [facility] RBC (Bld) [#/Vol] 3.66 10*6/uL Low 4.40 - 5.9 0 10*6/uL [facility] WBC (Bld) [#/Vol] 5.3 10*3/uL 3.6 - 10.7 10*3/uL [facility] CBC WITH AUTO DIFFERENTIALon 01-20-2024 Basophils (Bld) [#/Vol] 0.0 10*3/uL Normal 0.0-0.2 [facility] Comment on above: Performed By: #### L [id number] ####Flame Channeler: ARA WRIGHT ([phone])[facility])[address] [place] [address] Basophils/100 WBC (Bld) 0.4 % Normal 0.0-2.0 [facility] Comment on above: Performed By: #### L [id number] ####Flame Channeler: ARA WRIGHT ([phone])[facility])[address] [place] [address] Eosinophils (Bld) [#/Vol] 0.1 10*3/uL Normal 0.0-0.5 [facility] Comment on above: Performed By: #### L [id number] ####Flame Channeler: ARA WRIGHT ([phone])[facility])[address] [place] [address] Eosinophils/100 WBC (Bld) 1.7 % Normal 0.0-6.0 [facility] Comment on above: Performed By: #### L [id number] ####Flame Channeler: ARA WRIGHT ([phone])[facility])[address] [place] [address] Erythrocyte distribution width (RBC) [Ratio] 13.6 % Normal 11.5-15.0 [facility] Comment on above: Performed By: #### L [id number] ####Flame Channeler: ARA WRIGHT ([phone])[facility])[address] [place] [address] Hematocrit (Bld) [Volume fraction] 33.2 % Low 40.0-52.0 [facility] Comment on above: Performed By: #### L [id number] ####Flame Channeler: ARA WRIGHT ([id number])[facility])[address] [place] [address] Hemoglobin (Bld) [Mass/Vol] 11.7 g/dL Low 13.0-18.0 [facility] Comment on above: Performed By: #### L [id number] ####Flame Channeler: ARA WRIGHT ([id number])[facility])[address] [place] [address] IMMATURE GRANS % 0.4 % Normal 0.0-2.0 [facility] Comment on above: Performed By: #### L [id number] ####Flame Channeler: ARA WRIGHT ([phone])[facility])[address] [place] [address] IMMATURE GRANS ABSOLUTE 0.0 10*3/uL Normal <0.1 [facility] Comment on above: Performed By: #### L [id number] ####Flame Channeler: ARA WRIGHT ([phone])[facility])[address] [place] [address] [place] IPF 4 Normal [facility] Comment on above: Performed By: #### L [id number] ####Flame Channeler: ARA WRIGHT ([id number])[facility])[address] [place] [address] Lymphocytes (Bld) [#/Vol] 1.9 10*3/uL Normal 1.0-4.3 [facility] Comment on above: Performed By: #### L [id number] ####Flame Channeler: ARA WRIGHT ([id number])[facility])[address] [place] [address] [place] Lymphocytes/100 WBC (Bld) 35.7 % Normal 15.0-45.0 [facility] Comment on above: Performed By: #### L [id number] ####Flame Channeler: ARA WRIGHT ([id number])[facility])[address] [place] [address] MCH (RBC) [Entitic mass] 32.0 pg Normal 26.0-34.0 [facility] Comment on above: Performed By: #### L [id number] ####Flame Channeler: ARA WRIGHT ([id number])[facility])[address] [place] [address] MCHC 35.2 % Normal 30.5-36.0 [facility] Comment on above: Performed By: #### L [id number] ####Flame Channeler: ARA WRIGHT ([phone])[facility])[address] [place] [address] MCV (RBC) [Entitic vol] 90.7 fL Normal 77.0-99.0 [facility] Comment on above: Performed By: #### L [id number] ####Flame Channeler: ARA WRIGHT ([id number])[facility])[address] [place] [address] Monocytes (Bld) [#/Vol] 0.6 10*3/uL Normal 0.0-0.9 [facility] Comment on above: Performed By: #### L [id number] ####Flame Channeler: ARA WRIGHT ([phone])[facility])[address] [place] [address] Monocytes/100 WBC (Bld) 11.3 % Normal 5.0-13.0 [facility] Comment on above: Performed By: #### L [id number] ####Flame Channeler: ARA WRIGHT ([id number])[facility])[address] [place] [address] NEUTROPHILS ABSOLUTE 2.7 10*3/uL Normal 1.8-7.5 [facility] Comment on above: Performed By: #### L [id number] ####Flame Channeler: ARA WRIGHT ([phone])[facility])[address] [place] [address] Neutrophils/100 WBC (Bld) 50.5 % Normal 38.0-82.0 [facility] Comment on above: Performed By: #### L [id number] ####Flame Channeler: ARA WRIGHT ([id number])[facility])[address] [place] [address] NRBC 0.0 /100 WBCs Normal 0.0-2.0 [facility] Comment on above: Performed By: #### L [id number] ####Flame Channeler: ARA WRIGHT ([id number])[facility])[address] [place] [address] Platelet mean volume (Bld) [Entitic vol] 10.1 fL Normal 9.0-12.7 [facility] Comment on above: Performed By: #### L [id number] ####Flame Channeler: ARA WRIGHT ([id number])[facility])[address] [place] [address] Platelets (Bld) [#/Vol] 79 10*3/uL Low 140-440 [facility] Comment on above: Performed By: #### L [id number] ####Flame Channeler: ARA WRIGHT ([phone])[facility])[address] [place] [address] RBC (Bld) [#/Vol] 3.66 10*6/uL Low 4.40-5.90 [facility] Comment on above: Performed By: #### L [id number] ####Flame Channeler: ARA WRIGHT ([phone])[facility])[address] [place] [address] WBC (Bld) [#/Vol] 5.3 10*3/uL Normal 3.6-10.7 [facility] Comment on above: Performed By: #### L [id number] ####Flame Channeler: ARA WRIGHT ([id number])[facility])[address] [place] [address] COMPREHENSIVE METABOLIC PANE Peter 01-20-2024 Albumin [Mass/Vol] 4.0 g/dL Normal 3.5-5.0 [facility] Comment on above: Performed By: #### L [id number], LAB17 ####Flame Channeler: ARA WRIGHT ([phone])[facility] ([facility])[address] [place] [address] ALP [Catalytic activity/Vol] 58 U/L Normal 38-126 [facility] Comment on above: Performed By: #### L AB137, LAB17 ####Flame Channeler: ARA WRIGHT ([phone])[facility] ([facility])[address] [place] [address] ALT [Catalytic activity/Vol] 21 U/L Normal 0-49 [facility] Comment on above: Performed By: #### L AB137, LAB17 ####Flame Channeler: ARA WRIGHT ([id number])[facility] ([facility])[address] [place] [address] Anion gap [Moles/Vol] 9 mmol/L Normal 3-13 [facility] Comment on above: Performed By: #### L AB137, LAB17 ####Flame Channeler: ARA WRIGHT ([phone])[facility] ([facility])[address] [place] [address] AST [Catalytic activity/Vol] 38 U/L Normal 15-46 [facility] Comment on above: Performed By: #### L AB137, LAB17 ####Flame Channeler: ARA WRIGHT ([phone])[facility] ([facility])[address] [place] [address] Bilirubin [Mass/Vol] 0.5 mg/dL Normal 0.2-1.3 [facility] Comment on above: Performed By: #### L AB137, LAB17 ####Flame Channeler: ARA WRIGHT ([id number])[facility])[address] [place] [address] Calcium [Mass/Vol] 9.2 mg/dL Normal 8.4-10.4 [facility] Comment on above: Performed By: #### L AB137, LAB17 ####Flame Channeler: ARA WRIGHT ([id number])[facility])[address] [place] [address] Chloride [Moles/Vol] 98 mmol/L Normal 98-107 [facility] Comment on above: Performed By: #### L AB137, LAB17 ####Flame Channeler: ARA WRIGHT ([id number])[facility] [place] [address] CO2 [Moles/Vol] 21 mmol/L Low 22-30 [facility] Comment on above: Performed By: #### L AB137, LAB17 ####Flame Channeler: ARA WRIGHT ([id number])[facility])57 [place] [address] Creatinine [Mass/Vol] 0.74 mg/dL Normal 0.66-1.25 [facility] Comment on above: Performed By: #### L AB137, LAB17 ####Flame Channeler: ARA WRIGHT ([phone])[facility] ([facility])[address] [place] [address] GLOMERULAR FILTRATION RATE ML/MIN/1.73 SQ M.PREDICTED >90.0 Normal >60.0 [facility] Comment on above: Result Comment: Calc ulation based on the Chronic Kidney Disease Epidemiology Collaboration (CKD-EPI) equation refit without adjustment for race Performed By: #### L AB137, LAB17 ####Flame Channeler: ARA WRIGHT ([phone])[facility] [place] [address] Glucose [Mass/Vol] 100 mg/dL Normal 70-100 [facility] Comment on above: Performed By: #### L AB137, LAB17 ####Flame Channeler: ARA WRIGHT ([phone])[facility])[address] [place] [address] Potassium [Moles/Vol] 3.7 mmol/L Normal 3.5-5.1 [facility] Comment on above: Performed By: #### L AB137, LAB17 ####Flame Channeler: ARA [phone])[facility])[address] [place] [address] Protein [Mass/Vol] 7.0 g/dL Normal 6.3-8.2 [facility] Comment on above: Performed By: #### L AB137, LAB17 ####Flame Channeler: ARA WRIGHT ([id number])[facility] ([facility])[address] [place] [address] Sodium [Moles/Vol] 129 mmol/L Low 135-145 [facility] Comment on above: Performed By: #### L AB137, LAB17 ####Flame Channeler: ARA WRIGHT ([phone])[facility] ([facility])[address] [place] [address] Urea nitrogen [Mass/Vol] 8 mg/dL Low 9-20 [facility] Comment on above: Performed By: #### L AB137, LAB17 ####Flame Channeler: ARA WRIGHT ([phone])[facility] ([facility])[address] [place] [address] Comprehensive metabolic 1998 panelon 01-20-2024 Albumin [Mass/Vol] 4.0 g/dL 3.5 - 5.0 g/dL [facility] ALP [Catalytic activity/Vol] 58 U/L 38 - 126 U/L [facility] ALT [Catalytic activity/Vol] 21 U/L 0 - 49 U/L [facility] Anion gap [Moles/Vol] 9 mmol/L 3 - 13 mmol/L [facility] AST [Catalytic activity/Vol] 38 U/L 15 - 46 U/L [facility] Bilirubin [Mass/Vol] 0.5 mg/dL 0.2 - 1 .3 mg/dL [facility] Calcium [Mass/Vol] 9.2 mg/dL 8.4 - 10. 4 mg/dL [facility] Chloride [Moles/Vol] 98 mmol/L 98 - 10 7 mmol/L [facility] CO2 [Moles/Vol] 21 mmol/L Low 22 - 30 mmol/L [facility] Creatinine [Mass/Vol] 0.74 mg/dL 0.66 - 1.25 mg/dL [facility] GFR/1.73 sq M.predicted MDRD (S/P/Bld) [Vol rate/Area] - PINF [facility] Comment on above: Calculation based on the Chronic Kidney Disease Epidemiology Collaboration (CKD-EPI) equation refit without adjustment for race Glucose [Mass/Vol] 100 mg/dL 70 - 100 mg/dL [facility] Interpretation and review of laboratory results Abnormal [facility] Potassium [Moles/Vol] 3.7 mmol/L 3.5 - 5.1 mmol/L [facility] Protein [Mass/Vol] 7.0 g/dL 6.3 - 8.2 g/dL [facility] Sodium [Moles/Vol] 129 mmol/L Low 135 - 145 mmol/L [facility] Urea nitrogen [Mass/Vol] 8 mg/dL Low 9 - 20 mg/dL [facility] ECG 12-LEADon 01-20-2024 ECG 12-LEAD IMPRESSION: Sinus rhythm RBBB and LAFB Electronically Signed On 01-20-2024 12:33:18 EDT by Júnior Salter Normal [facility] FREE T4on 01-20-2024 Free T4 [Mass/Vol] 1.07 ng/dL Normal 0.78-2.19 [facility] Comment on above: Performed By: #### L [id number] ####Flame Channeler: ARA WRIGHT ([phone])[address] Free T3 [Mass/Vol]on Interpretation and review of laboratory results Normal [facility] Free T4 [Mass/Vol]on Free T4 Dialysis [Mass/Vol] 1.07 ng/dL 0.78 - 2.19 ng/dL [facility] Interpretation and review of laboratory results Normal [facility] Laboratory - Chemistry and C hemistry - challengeon 01-20-2024 Free T3 [Mass/Vol] 3.48 pg/mL 2.77 - 5. 27 pg/mL [facility] No Panel InformationOrdered By: Júnior Salter on 01-20-2024 P [place] 47 degrees [facility] [employer] Work Phone: TX Interval 162 ms [employer] Work Phone: QRS [place] -50 degrees [employer] Work Phone: QRSD Interval 138 ms [employer] Work Phone: QT Interval 394 ms [place] [facility] Work Phone: QTC Interval 471 ms [employer] Work Phone: T Wave [place] 7 degrees [employer] Work Phone: [employer] Work Phone: No Panel Informationon 01-19 Sinus rhythm RBBB and LAFB Electronically Signed On 01-20-2024 12:33:18 EDT by Júnior Dockery MD - 01/20/2024 IMPRESSION: Sinus rhythm RBBB and LAFB Electronically Signed On 01-20-2024 12:33:18 EDT by Júnior Salter [facility] Progress Noteon 01-20-2024 Progress Note Normal [facility] Progress Note Normal [facility] Progress Note Normal [facility] T3 FREEon 01-20-2024 Free T3 [Mass/Vol] 3.48 pg/mL Normal 2.77-5.27 [facility] Comment on above: Performed By: #### L AB137, LAB17 ####Flame Channeler: ARA WRIGHT ([phone])[address] Vital signsOrdered By: Júnior Salter on 01-20-2024 Heart rate 86 /min bpm [employer] Work Phone: CARECOORDon 01-19-2024 [place]ORD Normal [facility] CBC W Auto Differential pane l (Bld)on 01-19-2024 Basophils (Bld) [#/Vol] 0.0 10*3/uL 0.0 - 0.2 10*3/uL [facility] Basophils/100 WBC (Bld) 0.4 % 0.0 - 2.0 % [facility] Eosinophils (Bld) [#/Vol] 0.1 10*3/uL 0.0 - 0.5 10*3/uL [facility] Eosinophils/100 WBC (Bld) 1.4 % 0.0 - 6.0 % [facility] Erythrocyte distribution width (RBC) [Ratio] 13.4 % 11.5 - 15.0 % [facility] [employer] Hematocrit (Bld) [Volume fraction] 33.2 % Low 40.0 - 52.0 % [facility] Hemoglobin (Bld) [Mass/Vol] 11.5 g/dL Low 13.0 - 18.0 g/dL [facility] [employer] Immature granulocytes (Bld) [#/Vol] 0.0 10*3/uL NINF - 0.1 10*3/uL [facility] Health Immature granulocytes/100 WBC (Bld) 0.2 % 0.0 - 2.0 % [facility] Interpretation and review of laboratory results Abnormal [facility] IPF 3 [facility] Lymphocytes (Bld) [#/Vol] 1.8 10*3/uL 1.0 - 4.3 10*3/uL [facility] Lymphocytes/100 WBC (Bld) 31.7 % 15.0 - 45.0 % [facility] MCH (RBC) [Entitic mass] 31.8 pg 26.0 - 34.0 pg [facility] MCHC (RBC) [Mass/Vol] 34.6 % 30.5 - 36.0 % [facility] MCV (RBC) [Entitic vol] 91.7 fL 77.0 - 99.0 fL [facility] [employer] Monocytes (Bld) [#/Vol] 0.5 10*3/uL 0.0 - 0.9 10*3/uL [facility] Monocytes/100 WBC (Bld) 8.6 % 5.0 - 13.0 % [facility] Neutrophils (Bld) [#/Vol] 3.2 10*3/uL 1.8 - 7.5 10*3/uL [facility] Neutrophils/100 WBC (Bld) 57.7 % 38.0 - 82.0 % [facility] Nucleated RBC/100 WBC (Bld) [Ratio] 0.0 % [facility] [employer] Platelet mean volume (Bld) [Entitic vol] 10.0 fL 9.0 - 12.7 fL [facility] [employer] Platelets (Bld) [#/Vol] 70 10*3/uL Low 140 - 440 10*3/uL [facility] RBC (Bld) [#/Vol] 3.62 10*6/uL Low 4.40 - 5.9 0 10*6/uL [facility] WBC (Bld) [#/Vol] 5.6 10*3/uL 3.6 - 10.7 10*3/uL [facility] CBC WITH AUTO DIFFERENTIALon 01-19-2024 Basophils (Bld) [#/Vol] 0.0 10*3/uL Normal 0.0-0.2 [facility] Comment on above: Performed By: #### L [id number] ####Flame Channeler: ARA WRIGHT ([phone])[facility])[address] [place] [address] Basophils/100 WBC (Bld) 0.4 % Normal 0.0-2.0 [facility] Comment on above: Performed By: #### L [id number] ####Flame Channeler: ARA WRIGHT ([phone])[facility])[address] [place] [address] Eosinophils (Bld) [#/Vol] 0.1 10*3/uL Normal 0.0-0.5 [facility] Comment on above: Performed By: #### L [id number] ####Flame Channeler: ARA WRIGHT ([phone])[facility] ([facility])[address] [place] [address] Eosinophils/100 WBC (Bld) 1.4 % Normal 0.0-6.0 [facility] Comment on above: Performed By: #### L [id number] ####Flame Channeler: ARA WRIGHT ([phone])[facility])[address] [place] [address] Erythrocyte distribution width (RBC) [Ratio] 13.4 % Normal 11.5-15.0 [facility] Comment on above: Performed By: #### L [id number] ####Flame Channeler: ARA WRIGHT ([phone])[facility])[address] [place] [address] Hematocrit (Bld) [Volume fraction] 33.2 % Low 40.0-52.0 [facility] Comment on above: Performed By: #### L [id number] ####Flame Channeler: ARA WRIGHT ([phone])[facility])[address] [place] [address] Hemoglobin (Bld) [Mass/Vol] 11.5 g/dL Low 13.0-18.0 [facility] Comment on above: Performed By: #### L [id number] ####Flame Channeler: ARA WRIGHT ([phone])[facility])[address] [place] [address] IMMATURE GRANS % 0.2 % Normal 0.0-2.0 [facility] Comment on above: Performed By: #### L [id number] ####Flame Channeler: ARA WRIGHT ([phone])[facility])[address] [place] [address] IMMATURE GRANS ABSOLUTE 0.0 10*3/uL Normal <0.1 [facility] Comment on above: Performed By: #### L [id number] ####Flame Channeler: ARA WRIGHT ([phone])[facility])[address] [place] [address] [place] IPF 3 Normal [facility] Comment on above: Performed By: #### L [id number] ####Flame Channeler: ARA WRIGHT ([phone])[facility])[address] [place] [address] Lymphocytes (Bld) [#/Vol] 1.8 10*3/uL Normal 1.0-4.3 [facility] Comment on above: Performed By: #### L [id number] ####Flame Channeler: ARA WRIGHT ([phone])[facility])[address] [place] [address] Lymphocytes/100 WBC (Bld) 31.7 % Normal 15.0-45.0 [facility] Comment on above: Performed By: #### L [id number] ####Flame Channeler: ARA WRIGHT ([phone])[facility])[address] [place] [address] MCH (RBC) [Entitic mass] 31.8 pg Normal 26.0-34.0 [facility] Comment on above: Performed By: #### L [id number] ####Flame Channeler: ARA WRIGHT ([phone])[facility])[address] [place] [address] MCHC 34.6 % Normal 30.5-36.0 [facility] Comment on above: Performed By: #### L [id number] ####Flame Channeler: ARA WRIGHT ([phone])[facility])[address] [place] [address] MCV (RBC) [Entitic vol] 91.7 fL Normal 77.0-99.0 [facility] Comment on above: Performed By: #### L [id number] ####Flame Channeler: ARA WRIGHT ([id number])[facility])[address] [place] [address] Monocytes (Bld) [#/Vol] 0.5 10*3/uL Normal 0.0-0.9 [facility] Comment on above: Performed By: #### L [id number] ####Flame Channeler: ARA WRIGHT ([phone])[facility])[address] [place] [address] Monocytes/100 WBC (Bld) 8.6 % Normal 5.0-13.0 [facility] Comment on above: Performed By: #### L [id number] ####Flame Channeler: ARA WRIGHT ([phone])[facility])[address] [place] [address] NEUTROPHILS ABSOLUTE 3.2 10*3/uL Normal 1.8-7.5 [facility] Comment on above: Performed By: #### L [id number] ####Flame Channeler: ARA WRIGHT ([id number])[facility])[address] [place] [address] Neutrophils/100 WBC (Bld) 57.7 % Normal 38.0-82.0 [facility] Comment on above: Performed By: #### L [id number] ####Flame Channeler: ARA WRIGHT ([phone])[facility])[address] [place] [address] NRBC 0.0 /100 WBCs Normal 0.0-2.0 [facility] Comment on above: Performed By: #### L [id number] ####Flame Channeler: ARA WRIGHT ([phone])[facility] ([facility])[address] [place] [address] Platelet mean volume (Bld) [Entitic vol] 10.0 fL Normal 9.0-12.7 [facility] Comment on above: Performed By: #### L [id number] ####Flame Channeler: ARA WRIGHT ([phone])[facility] ([facility])[address] [place] [address] Platelets (Bld) [#/Vol] 70 10*3/uL Low 140-440 [facility] Comment on above: Performed By: #### L [id number] ####Flame Channeler: ARA WRIGHT ([id number])[facility] ([facility])[address] [place] [address] RBC (Bld) [#/Vol] 3.62 10*6/uL Low 4.40-5.90 [facility] Comment on above: Performed By: #### L [id number] ####Flame Channeler: ARA WRIGHT ([phone])[facility])[address] [place] [address] WBC (Bld) [#/Vol] 5.6 10*3/uL Normal 3.6-10.7 [facility] Comment on above: Performed By: #### L [id number] ####Flame Channeler: ARA WRIGHT ([phone])[facility])[address] [place] [address] COMPREHENSIVE METABOLIC PANE Peter 01-19-2024 Albumin [Mass/Vol] 3.9 g/dL Normal 3.5-5.0 [facility] Comment on above: Performed By: #### L AB17, [id number], [id number] ####Flame Channeler: ARA WRIGHT ([id number])[facility])[address] [place] [address] [place] ALP [Catalytic activity/Vol] 56 U/L Normal 38-126 [facility] Comment on above: Performed By: #### L AB17, [id number], [id number] ####Flame Channeler: ARA WRIGHT ([phone])[facility] [place] [address] [place] ALT [Catalytic activity/Vol] 16 U/L Normal 0-49 [facility] Comment on above: Performed By: #### L AB17, [id number], [id number] ####Flame Channeler: ARA WRIGHT ([phone])[facility])[address] [place] [address] Anion gap [Moles/Vol] 9 mmol/L Normal 3-13 [facility] Comment on above: Performed By: #### Popeye AB17, [id number], [id number] ####Flame Channeler: ARA WRIGHT ([phone])[facility])[address] [place] [address] AST [Catalytic activity/Vol] 27 U/L Normal 15-46 [facility] Comment on above: Performed By: #### Popeye WOOD, [id number], [id number] ####Flame Channeler: ARA WRIGHT ([phone])[facility] ([facility])[address] [place] [address] [place] Bilirubin [Mass/Vol] 0.5 mg/dL Normal 0.2-1.3 [facility] Comment on above: Performed By: #### Popeye AB17, [id number], [id number] ####Flame Channeler: ARA WRIGHT ([phone])[facility] ([facility])[address] [place] [address] [place] Calcium [Mass/Vol] 9.2 mg/dL Normal 8.4-10.4 [facility] Comment on above: Performed By: #### L AB17, QGY426, VQX649 ####Flame Channeler: ARA WRIGHT ([id number])[facility] [place] [address] [place] Chloride [Moles/Vol] 100 mmol/L Normal 98-107 [facility] Comment on above: Performed By: #### L AB17, [id number], [id number] ####Flame Channeler: ARA WRIGHT ([id number])[facility])[address] [place] [address] CO2 [Moles/Vol] 20 mmol/L Low 22-30 [facility] Comment on above: Performed By: #### L AB17, YBD386, SGI750 ####Flame Channeler: ARA WRIGHT ([phone])[facility] ([facility])[address] [place] [address] Creatinine [Mass/Vol] 0.72 mg/dL Normal 0.66-1.25 [facility] Comment on above: Performed By: #### Popeye AB17, [id number], LRQ472 ####Flame Channeler: ARA WRIGHT ([phone])[facility])[address] [place] [address] GLOMERULAR FILTRATION RATE ML/MIN/1.73 SQ M.PREDICTED >90.0 Normal >60.0 [facility] Comment on above: Result Comment: Calc ulation based on the Chronic Kidney Disease Epidemiology Collaboration (CKD-EPI) equation refit without adjustment for race Performed By: #### Popeye AB17, [id number], [id number] ####Flame Channeler: ARA WRIGHT ([id number])[facility] ([facility])[address] [place] [address] Glucose [Mass/Vol] 126 mg/dL High 70-100 [facility] Comment on above: Performed By: #### L AB17, CUS413, UTE161 ####Flame Channeler: ARA WRIGHT ([phone])[facility])[address] [place] [address] Potassium [Moles/Vol] 3.7 mmol/L Normal 3.5-5.1 [facility] Comment on above: Performed By: #### L AB17, AIF150, DEP158 ####Flame Channeler: ARA WRIGHT ([phone])[facility])[address] [place] [address] Protein [Mass/Vol] 6.9 g/dL Normal 6.3-8.2 [facility] Comment on above: Performed By: #### L AB17, [id number], [id number] ####Flame Channeler: ARA WRIGHT ([id number])[facility] ([facility])[address] [place] [address] Sodium [Moles/Vol] 129 mmol/L Low 135-145 [facility] Comment on above: Performed By: #### L AB17, ADK510, [id number] ####Flame Channeler: ARA WRIGHT ([phone])[facility] ([facility])[address] [place] [address] Urea nitrogen [Mass/Vol] 14 mg/dL Normal 9-20 [facility] Comment on above: Performed By: #### L AB17, [id number], NJE394 ####Flame Channeler: ARA WRIGHT ([phone])[facility] ([facility])[address] [place] [address] Comprehensive metabolic 1998 panelon 01-19-2024 Albumin [Mass/Vol] 3.9 g/dL 3.5 - 5.0 g/dL [facility] ALP [Catalytic activity/Vol] 56 U/L 38 - 126 U/L [facility] ALT [Catalytic activity/Vol] 16 U/L 0 - 49 U/L [facility] Anion gap [Moles/Vol] 9 mmol/L 3 - 13 mmol/L [facility] AST [Catalytic activity/Vol] 27 U/L 15 - 46 U/L [facility] Bilirubin [Mass/Vol] 0.5 mg/dL 0.2 - 1 .3 mg/dL [facility] Calcium [Mass/Vol] 9.2 mg/dL 8.4 - 10. 4 mg/dL [facility] Chloride [Moles/Vol] 100 mmol/L 98 - 10 7 mmol/L [facility] CO2 [Moles/Vol] 20 mmol/L Low 22 - 30 mmol/L [facility] Creatinine [Mass/Vol] 0.72 mg/dL 0.66 - 1.25 mg/dL [facility] GFR/1.73 sq M.predicted MDRD (S/P/Bld) [Vol rate/Area] - PINF [facility] Comment on above: Calculation based on the Chronic Kidney Disease Epidemiology Collaboration (CKD-EPI) equation refit without adjustment for race Glucose [Mass/Vol] 126 mg/dL High 70 - 100 mg/dL [facility] Interpretation and review of laboratory results Abnormal [facility] Potassium [Moles/Vol] 3.7 mmol/L 3.5 - 5.1 mmol/L [facility] Protein [Mass/Vol] 6.9 g/dL 6.3 - 8.2 g/dL [facility] Sodium [Moles/Vol] 129 mmol/L Low 135 - 145 mmol/L [facility] Urea nitrogen [Mass/Vol] 14 mg/dL 9 - 20 mg/dL [facility] IDNon 01-19-2024 IDN Normal [facility] Laboratory - Chemistry and C hemistry - challengeon 01-19-2024 TSH Qn 4.844 m[IU]/L High [facility] Magnesium [Mass/Vol] 1.6 mg/dL 1.6 - 2 .3 mg/dL [facility] MAGNESIUMon 01-19-2024 Magnesium [Mass/Vol] 1.6 mg/dL Normal 1.6-2.3 [facility] Comment on above: Performed By: #### L AB17, [id number], [id number] ####Flame Channeler: ARA WRIGHT ([phone])[facility])[address] [place] [address] Magnesium [Mass/Vol]on 01-18 Interpretation and review of laboratory results Normal [facility] Progress Noteon 01-19-2024 Progress Note Normal [facility] Progress Note Normal [facility] Progress Note Normal [facility] Progress Note Normal [facility] THYROID STIMULATING HORMONEo n 01-19-2024 THYROID STIMULATING HORMONE 4.844 uIU/mL High 0.465-4.680 [facility] Comment on above: Performed By: #### L AB17, [id number], [id number] ####Flame Channeler: ARA WRIGHT ([phone])[facility] ([facility])[address] [place] [address] [place] TSH Qnon 01-19-2024 Interpretation and review of laboratory results Abnormal [facility] CARECOORDon 01-18-2024 CARECOORD Normal [facility] CBC W Auto Differential pane l (Bld)Ordered By: Anna Hensley on 01-18-2024 Basophils (Bld) [#/Vol] 0.0 10*3/uL 0.0 - 0.2 10*3/uL [facility] Basophils/100 WBC (Bld) 0.4 % 0.0 - 2.0 % [facility] Eosinophils (Bld) [#/Vol] 0.1 10*3/uL 0.0 - 0.5 10*3/uL [facility] Eosinophils/100 WBC (Bld) 1.9 % 0.0 - 6.0 % [facility] Erythrocyte distribution width (RBC) [Ratio] 13.5 % 11.5 - 15.0 % [facility] Hematocrit (Bld) [Volume fraction] 34.3 % Low 40.0 - 52.0 % [facility] Hemoglobin (Bld) [Mass/Vol] 12.1 g/dL Low 13.0 - 18.0 g/dL [facility] Immature granulocytes (Bld) [#/Vol] 0.0 10*3/uL NINF - 0.1 10*3/uL [facility] Immature granulocytes/100 WBC (Bld) 0.6 % 0.0 - 2.0 % [facility] Interpretation and review of laboratory results Abnormal [facility] IPF 4 [facility] Lymphocytes (Bld) [#/Vol] 2.0 10*3/uL 1.0 - 4.3 10*3/uL [facility] Lymphocytes/100 WBC (Bld) 37.8 % 15.0 - 45.0 % [facility] MCH (RBC) [Entitic mass] 31.8 pg 26.0 - 34.0 pg [facility] MCHC (RBC) [Mass/Vol] 35.3 % 30.5 - 36.0 % [facility] MCV (RBC) [Entitic vol] 90.0 fL 77.0 - 99.0 fL [facility] Monocytes (Bld) [#/Vol] 0.4 10*3/uL 0.0 - 0.9 10*3/uL [facility] Monocytes/100 WBC (Bld) 7.9 % 5.0 - 13.0 % [facility] Neutrophils (Bld) [#/Vol] 2.7 10*3/uL 1.8 - 7.5 10*3/uL [facility] Neutrophils/100 WBC (Bld) 51.4 % 38.0 - 82.0 % [facility] Nucleated RBC/100 WBC (Bld) [Ratio] 0.0 % [facility] Platelet mean volume (Bld) [Entitic vol] 10.2 fL 9.0 - 12.7 fL [facility] Platelets (Bld) [#/Vol] 62 10*3/uL Low 140 - 440 10*3/uL [facility] RBC (Bld) [#/Vol] 3.81 10*6/uL Low 4.40 - 5.9 0 10*6/uL [facility] WBC (Bld) [#/Vol] 5.3 10*3/uL 3.6 - 10.7 10*3/uL [facility] CBC WITH AUTO DIFFERENTIALon 01-18-2024 Basophils (Bld) [#/Vol] 0.0 10*3/uL Normal 0.0-0.2 [facility] Comment on above: Performed By: #### L [id number] ####Flame Channeler: ARA WRIGHT ([phone])[address] Basophils/100 WBC (Bld) 0.4 % Normal 0.0-2.0 [facility] Comment on above: Performed By: #### L [id number] ####Flame Channeler: ARA WRIGHT ([phone])[facility])[address] [place] [address] Eosinophils (Bld) [#/Vol] 0.1 10*3/uL Normal 0.0-0.5 [facility] Comment on above: Performed By: #### L [id number] ####Flame Channeler: ARA WRIGHT ([id number])[facility])[address] [place] [address] Eosinophils/100 WBC (Bld) 1.9 % Normal 0.0-6.0 [facility] Comment on above: Performed By: #### L [id number] ####Flame Channeler: ARA WRIGHT ([id number])[facility])[address] [place] [address] Erythrocyte distribution width (RBC) [Ratio] 13.5 % Normal 11.5-15.0 [facility] Comment on above: Performed By: #### L [id number] ####Flame Channeler: ARA WRIGHT ([id number])[facility])[address] [place] [address] Hematocrit (Bld) [Volume fraction] 34.3 % Low 40.0-52.0 [facility] Comment on above: Performed By: #### L [id number] ####Flame Channeler: ARA WRIGHT ([id number])[facility])[address] [place] [address] Hemoglobin (Bld) [Mass/Vol] 12.1 g/dL Low 13.0-18.0 [facility] Comment on above: Performed By: #### L [id number] ####Flame Channeler: ARA WRIGHT ([phone])[facility])[address] [place] [address] IMMATURE GRANS % 0.6 % Normal 0.0-2.0 [facility] Comment on above: Performed By: #### L [id number] ####Flame Channeler: ARA WRIGHT ([id number])[facility])[address] [place] [address] IMMATURE GRANS ABSOLUTE 0.0 10*3/uL Normal <0.1 [facility] Comment on above: Performed By: #### L [id number] ####Flame Channeler: ARA WRIGHT ([phone])[facility])[address] [place] [address] IPF 4 Normal [facility] Comment on above: Performed By: #### L [id number] ####Flame Channeler: ARA WRIGHT ([phone])[facility])[address] [place] [address] Lymphocytes (Bld) [#/Vol] 2.0 10*3/uL Normal 1.0-4.3 [facility] Comment on above: Performed By: #### L [id number] ####Flame Channeler: ARA WRIGHT ([phone])[facility])[address] [place] [address] Lymphocytes/100 WBC (Bld) 37.8 % Normal 15.0-45.0 [facility] Comment on above: Performed By: #### L [id number] ####Flame Channeler: ARA WRIGHT ([phone])[facility])[address] [place] [address] MCH (RBC) [Entitic mass] 31.8 pg Normal 26.0-34.0 [facility] Comment on above: Performed By: #### L [id number] ####Flame Channeler: ARA WRIGHT ([phone])[facility])[address] [place] [address] MCHC 35.3 % Normal 30.5-36.0 [facility] Comment on above: Performed By: #### L [id number] ####Flame Channeler: ARA WRIGHT ([phone])[facility])[address] [place] [address] MCV (RBC) [Entitic vol] 90.0 fL Normal 77.0-99.0 [facility] Comment on above: Performed By: #### L [id number] ####Flame Channeler: ARA WRIGHT ([phone])[facility])[address] [place] [address] Monocytes (Bld) [#/Vol] 0.4 10*3/uL Normal 0.0-0.9 [facility] Comment on above: Performed By: #### L [id number] ####Flame Channeler: ARA WRIGHT ([id number])[facility])[address] [place] [address] Monocytes/100 WBC (Bld) 7.9 % Normal 5.0-13.0 [facility] Comment on above: Performed By: #### L [id number] ####Flame Channeler: ARA WRIGHT ([id number])[facility] ([facility])[address] [place] [address] NEUTROPHILS ABSOLUTE 2.7 10*3/uL Normal 1.8-7.5 [facility] Comment on above: Performed By: #### L [id number] ####Flame Channeler: ARA WRIGHT ([phone])[facility] ([facility])[address] [place] [address] Neutrophils/100 WBC (Bld) 51.4 % Normal 38.0-82.0 [facility] Comment on above: Performed By: #### L [id number] ####Flame Channeler: ARA WRIGHT ([id number])[facility])[address] [place] [address] NRBC 0.0 /100 WBCs Normal 0.0-2.0 [facility] Comment on above: Performed By: #### L [id number] ####Flame Channeler: ARA WRIGHT ([phone])[facility] ([facility])[address] [place] [address] Platelet mean volume (Bld) [Entitic vol] 10.2 fL Normal 9.0-12.7 [facility] Comment on above: Performed By: #### L [id number] ####Flame Channeler: ARA WRIGHT ([id number])[facility] ([facility])[address] [place] [address] Platelets (Bld) [#/Vol] 62 10*3/uL Low 140-440 [facility] Comment on above: Performed By: #### L [id number] ####Flame Channeler: ARA WRIGHT ([phone])[facility] ([facility])[address] [place] [address] [place] RBC (Bld) [#/Vol] 3.81 10*6/uL Low 4.40-5.90 [facility] Comment on above: Performed By: #### L [id number] ####Flame Channeler: ARA WRIGHT ([phone])[facility] ([facility])[address] [place] [address] WBC (Bld) [#/Vol] 5.3 10*3/uL Normal 3.6-10.7 [facility] Comment on above: Performed By: #### L [id number] ####Flame Channeler: ARA WRIGHT ([phone])[facility] ([facility])[address] [place] [address] COMPREHENSIVE METABOLIC PANE Peter 01-18-2024 Albumin [Mass/Vol] 3.9 g/dL Normal 3.5-5.0 [facility] Comment on above: Performed By: #### L AB17, [id number] ####Flame Channeler: ARA WRIGHT ([id number])[facility] ([facility])[address] [place] [address] ALP [Catalytic activity/Vol] 59 U/L Normal 38-126 [facility] Comment on above: Performed By: #### L AB17, [id number] ####Flame Channeler: ARA WRIGHT ([phone])[facility] ([facility])[address] [place] [address] ALT [Catalytic activity/Vol] 16 U/L Normal 0-49 [facility] Comment on above: Performed By: #### L AB17, [id number] ####Flame Channeler: ARA WRIGHT ([phone])[facility] ([facility])[address] [place] [address] Anion gap [Moles/Vol] 9 mmol/L Normal 3-13 [facility] Comment on above: Performed By: #### L AB17, [id number] ####Flame Channeler: ARA WRIGHT ([id number])[facility] ([facility])[address] [place] [address] AST [Catalytic activity/Vol] 26 U/L Normal 15-46 [facility] Comment on above: Performed By: #### L AB17, [id number] ####Flame Channeler: ARA WRIGHT ([phone])[facility] ([facility])[address] [place] [address] Bilirubin [Mass/Vol] 0.7 mg/dL Normal 0.2-1.3 [facility] Comment on above: Performed By: #### L AB17, [id number] ####Flame Channeler: ARA WRIGHT ([phone])[facility])[address] [place] [address] Calcium [Mass/Vol] 9.0 mg/dL Normal 8.4-10.4 [facility] Comment on above: Performed By: #### L AB17, [id number] ####Flame Channeler: ARA WRIGHT ([phone])[facility])[address] [place] [address] Chloride [Moles/Vol] 101 mmol/L Normal 98-107 [facility] Comment on above: Performed By: #### L AB17, [id number] ####Flame Channeler: ARA WRIGHT ([phone])[facility] ([facility])[address] [place] [address] CO2 [Moles/Vol] 22 mmol/L Normal 22-30 [facility] Comment on above: Performed By: #### L AB17, [id number] ####Flame Channeler: ARA WRIGHT ([phone])[facility] ([facility])[address] [place] [address] Creatinine [Mass/Vol] 0.70 mg/dL Normal 0.66-1.25 [facility] Comment on above: Performed By: #### L AB17, [id number] ####Flame Channeler: ARA WRIGHT ([phone])[facility])[address] [place] [address] GLOMERULAR FILTRATION RATE ML/MIN/1.73 SQ M.PREDICTED >90.0 Normal >60.0 [facility] Comment on above: Result Comment: Calc ulation based on the Chronic Kidney Disease Epidemiology Collaboration (CKD-EPI) equation refit without adjustment for race Performed By: #### L AB17, [id number] ####Flame Channeler: ARA WRIGHT ([phone])[facility] ([facility])[address] [place] [address] [place] Glucose [Mass/Vol] 123 mg/dL High 70-100 [facility] Comment on above: Performed By: #### L AB17, [id number] ####Flame Channeler: ARA WRIGHT ([phone])[facility])[address] [place] [address] Potassium [Moles/Vol] 3.6 mmol/L Normal 3.5-5.1 [facility] Comment on above: Performed By: #### L AB17, [id number] ####Flame Channeler: ARA WRIGHT ([id number])[facility] ([facility])[address] [place] [address] Protein [Mass/Vol] 6.9 g/dL Normal 6.3-8.2 [facility] Comment on above: Performed By: #### L AB17, [id number] ####Flame Channeler: ARA WRIGHT ([phone])[facility] ([facility])[address] [place] [address] Sodium [Moles/Vol] 132 mmol/L Low 135-145 [facility] Comment on above: Performed By: #### L AB17, [id number] ####Flame Channeler: ARA WRIGHT ([id number])[facility] ([facility])[address] [place] [address] Urea nitrogen [Mass/Vol] 14 mg/dL Normal 9-20 [facility] Comment on above: Performed By: #### L AB17, [id number] ####Flame Channeler: ARA WRIGHT ([id number])[facility])[address] [place] [address] Comprehensive metabolic 1998 panelon 01-18-2024 Albumin [Mass/Vol] 3.9 g/dL 3.5 - 5.0 g/dL [facility] ALP [Catalytic activity/Vol] 59 U/L 38 - 126 U/L [facility] ALT [Catalytic activity/Vol] 16 U/L 0 - 49 U/L [facility] Anion gap [Moles/Vol] 9 mmol/L 3 - 13 mmol/L [facility] AST [Catalytic activity/Vol] 26 U/L 15 - 46 U/L [facility] Bilirubin [Mass/Vol] 0.7 mg/dL 0.2 - 1 .3 mg/dL [facility] Calcium [Mass/Vol] 9.0 mg/dL 8.4 - 10. 4 mg/dL [facility] Chloride [Moles/Vol] 101 mmol/L 98 - 10 7 mmol/L [facility] CO2 [Moles/Vol] 22 mmol/L 22 - 30 mmol/L [facility] Creatinine [Mass/Vol] 0.70 mg/dL 0.66 - 1.25 mg/dL [facility] GFR/1.73 sq M.predicted MDRD (S/P/Bld) [Vol rate/Area] - PINF [facility] Comment on above: Calculation based on the Chronic Kidney Disease Epidemiology Collaboration (CKD-EPI) equation refit without adjustment for race Glucose [Mass/Vol] 123 mg/dL High 70 - 100 mg/dL [facility] Interpretation and review of laboratory results Abnormal [facility] Potassium [Moles/Vol] 3.6 mmol/L 3.5 - 5.1 mmol/L [facility] Protein [Mass/Vol] 6.9 g/dL 6.3 - 8.2 g/dL [facility] Sodium [Moles/Vol] 132 mmol/L Low 135 - 145 mmol/L [facility] Urea nitrogen [Mass/Vol] 14 mg/dL 9 - 20 mg/dL [facility] Laboratory - Chemistry and C hemistry - challengeon 01-18-2024 Magnesium [Mass/Vol] 1.8 mg/dL 1.6 - 2 .3 mg/dL [facility] MAGNESIUMon 01-18-2024 Magnesium [Mass/Vol] 1.8 mg/dL Normal 1.6-2.3 [facility] Comment on above: Performed By: #### L AB17, [id number] ####Flame Channeler: ARA WRIGHT ([phone])[facility] ([address] Magnesium [Mass/Vol]on 01-17 Interpretation and review of laboratory results Normal [facility] Progress Noteon 01-18-2024 Progress Note Normal [facility] Progress Note Normal [facility] Progress Note Normal [facility] CBC W Auto Differential pane l (Bld)Ordered By: Denita Chappell on 01-17-2024 Basophils (Bld) [#/Vol] 0.0 10*3/uL 0.0 - 0.2 10*3/uL [facility] Basophils/100 WBC (Bld) 0.5 % 0.0 - 2.0 % [facility] Eosinophils (Bld) [#/Vol] 0.0 10*3/uL 0.0 - 0.5 10*3/uL [facility] Eosinophils/100 WBC (Bld) 1.0 % 0.0 - 6.0 % [facility] Erythrocyte distribution width (RBC) [Ratio] 13.2 % 11.5 - 15.0 % [facility] Hematocrit (Bld) [Volume fraction] 33.3 % Low 40.0 - 52.0 % [facility] Hemoglobin (Bld) [Mass/Vol] 11.8 g/dL Low 13.0 - 18.0 g/dL [facility] Immature granulocytes (Bld) [#/Vol] 0.0 10*3/uL NINF - 0.1 10*3/uL [facility] Immature granulocytes/100 WBC (Bld) 0.2 % 0.0 - 2.0 % [facility] Interpretation and review of laboratory results Abnormal [facility] IPF 3 [facility] Lymphocytes (Bld) [#/Vol] 1.6 10*3/uL 1.0 - 4.3 10*3/uL [facility] Lymphocytes/100 WBC (Bld) 39.1 % 15.0 - 45.0 % [facility] MCH (RBC) [Entitic mass] 32.0 pg 26.0 - 34.0 pg [facility] MCHC (RBC) [Mass/Vol] 35.4 % 30.5 - 36.0 % [facility] MCV (RBC) [Entitic vol] 90.2 fL 77.0 - 99.0 fL [facility] Monocytes (Bld) [#/Vol] 0.3 10*3/uL 0.0 - 0.9 10*3/uL [facility] Monocytes/100 WBC (Bld) 7.5 % 5.0 - 13.0 % [facility] Neutrophils (Bld) [#/Vol] 2.1 10*3/uL 1.8 - 7.5 10*3/uL [facility] Neutrophils/100 WBC (Bld) 51.7 % 38.0 - 82.0 % [facility] Nucleated RBC/100 WBC (Bld) [Ratio] 0.0 % [facility] Platelet mean volume (Bld) [Entitic vol] 9.8 fL 9.0 - 12.7 fL [facility] Platelets (Bld) [#/Vol] 52 10*3/uL Low 140 - 440 10*3/uL [facility] RBC (Bld) [#/Vol] 3.69 10*6/uL Low 4.40 - 5.9 0 10*6/uL [facility] WBC (Bld) [#/Vol] 4.1 10*3/uL 3.6 - 10.7 10*3/uL [facility] CBC WITH AUTO DIFFERENTIALon 01-17-2024 Basophils (Bld) [#/Vol] 0.0 10*3/uL Normal 0.0-0.2 [facility] Comment on above: Performed By: #### L [id number] ####Flame Channeler: ARA WRIGHT ([phone])[address] Basophils/100 WBC (Bld) 0.5 % Normal 0.0-2.0 [facility] Comment on above: Performed By: #### L [id number] ####Flame Channeler: ARA WRIGHT ([phone])[facility])[address] [place] [address] Eosinophils (Bld) [#/Vol] 0.0 10*3/uL Normal 0.0-0.5 [facility] Comment on above: Performed By: #### L [id number] ####Flame Channeler: ARA WRIGHT ([id number])[facility])[address] [place] [address] Eosinophils/100 WBC (Bld) 1.0 % Normal 0.0-6.0 [facility] Comment on above: Performed By: #### L [id number] ####Flame Channeler: ARA WRIGHT ([phone])[facility])[address] [place] [address] Erythrocyte distribution width (RBC) [Ratio] 13.2 % Normal 11.5-15.0 [facility] Comment on above: Performed By: #### L [id number] ####Flame Channeler: ARA WRIGHT ([phone])[address] Hematocrit (Bld) [Volume fraction] 33.3 % Low 40.0-52.0 [facility] Comment on above: Performed By: #### L [id number] ####Flame Channeler: ARA WRIGHT ([phone])[facility])[address] [place] [address] Hemoglobin (Bld) [Mass/Vol] 11.8 g/dL Low 13.0-18.0 [facility] Comment on above: Performed By: #### L [id number] ####Flame Channeler: ARA WRIGHT ([phone])[address] IMMATURE GRANS % 0.2 % Normal 0.0-2.0 [facility] Comment on above: Performed By: #### L [id number] ####Flame Channeler: ARA WRIGHT ([id number])[address] IMMATURE GRANS ABSOLUTE 0.0 10*3/uL Normal <0.1 [facility] Comment on above: Performed By: #### L [id number] ####Flame Channeler: ARA WRIGHT ([id number])[address] IPF 3 Normal [facility] Comment on above: Performed By: #### L [id number] ####Flame Channeler: ARA WRIGHT ([id number])[address] Lymphocytes (Bld) [#/Vol] 1.6 10*3/uL Normal 1.0-4.3 [facility] Comment on above: Performed By: #### L [id number] ####Flame Channeler: ARA WRIGHT ([phone])[facility])[address] [place] [address] Lymphocytes/100 WBC (Bld) 39.1 % Normal 15.0-45.0 [facility] Comment on above: Performed By: #### L [id number] ####Flame Channeler: ARA WRIGHT ([phone])[facility])[address] [place] [address] MCH (RBC) [Entitic mass] 32.0 pg Normal 26.0-34.0 [facility] Comment on above: Performed By: #### L [id number] ####Flame Channeler: ARA WRIGHT ([phone])[facility])[address] [place] [address] MCHC 35.4 % Normal 30.5-36.0 [facility] Comment on above: Performed By: #### L [id number] ####Flame Channeler: ARA WRIGHT ([phone])[facility])[address] [place] [address] MCV (RBC) [Entitic vol] 90.2 fL Normal 77.0-99.0 [facility] Comment on above: Performed By: #### L [id number] ####Flame Channeler: ARA WRIGHT ([phone])[facility])[address] [place] [address] Monocytes (Bld) [#/Vol] 0.3 10*3/uL Normal 0.0-0.9 [facility] Comment on above: Performed By: #### L [id number] ####Flame Channeler: ARA WRIGHT ([phone])[facility])[address] [place] [address] Monocytes/100 WBC (Bld) 7.5 % Normal 5.0-13.0 [facility] Comment on above: Performed By: #### L [id number] ####Flame Channeler: ARA WRIGHT ([phone])[facility])[address] [place] [address] NEUTROPHILS ABSOLUTE 2.1 10*3/uL Normal 1.8-7.5 [facility] Comment on above: Performed By: #### L [id number] ####Flame Channeler: ARA WRIGHT ([phone])[facility])[address] [place] [address] Neutrophils/100 WBC (Bld) 51.7 % Normal 38.0-82.0 [facility] Comment on above: Performed By: #### L [id number] ####Flame Channeler: ARA WRIGHT ([phone])[facility] ([facility])[address] [place] [address] NRBC 0.0 /100 WBCs Normal 0.0-2.0 [facility] Comment on above: Performed By: #### L [id number] ####Flame Channeler: ARA WRIGHT ([phone])[facility])[address] [place] [address] Platelet mean volume (Bld) [Entitic vol] 9.8 fL Normal 9.0-12.7 [facility] Comment on above: Performed By: #### L [id number] ####Flame Channeler: ARA WRIGHT ([id number])[facility] ([facility])[address] [place] [address] [place] Platelets (Bld) [#/Vol] 52 10*3/uL Low 140-440 [facility] Comment on above: Performed By: #### L [id number] ####Flame Channeler: ARA WRIGHT ([phone])[facility] ([facility])[address] [place] [address] RBC (Bld) [#/Vol] 3.69 10*6/uL Low 4.40-5.90 [facility] Comment on above: Performed By: #### L [id number] ####Flame Channeler: ARA WRIGHT ([phone])[facility])[address] [place] [address] WBC (Bld) [#/Vol] 4.1 10*3/uL Normal 3.6-10.7 [facility] Comment on above: Performed By: #### L [id number] ####Flame Channeler: ARA WRIGHT ([phone])[facility] ([facility])[address] [place] [address] COMPREHENSIVE METABOLIC PANE Peter 01-17-2024 Albumin [Mass/Vol] 3.9 g/dL Normal 3.5-5.0 [facility] Comment on above: Performed By: #### L AB103, LAB17 ####Flame Channeler: ARA WRIGHT ([phone])[facility] ([facility])[address] [place] [address] ALP [Catalytic activity/Vol] 64 U/L Normal 38-126 [facility] Comment on above: Performed By: #### L AB103, LAB17 ####Flame Channeler: ARA WRIGHT ([phone])[facility] ([facility])[address] [place] [address] ALT [Catalytic activity/Vol] 19 U/L Normal 0-49 [facility] Comment on above: Performed By: #### L AB103, LAB17 ####Flame Channeler: ARA WRIGHT ([id number])[facility] ([facility])[address] [place] [address] Anion gap [Moles/Vol] 11 mmol/L Normal 3-13 [facility] Comment on above: Performed By: #### L AB103, LAB17 ####Flame Channeler: ARA WRIGHT ([phone])[facility] ([facility])[address] [place] [address] AST [Catalytic activity/Vol] 33 U/L Normal 15-46 [facility] Comment on above: Performed By: #### L AB103, LAB17 ####Flame Channeler: ARA WRIGHT ([id number])[facility] ([facility])[address] [place] [address] Bilirubin [Mass/Vol] 0.8 mg/dL Normal 0.2-1.3 [facility] Comment on above: Performed By: #### L AB103, LAB17 ####Flame Channeler: ARA WRIGHT ([phone])[facility])[address] [place] [address] [place] Calcium [Mass/Vol] 8.9 mg/dL Normal 8.4-10.4 [facility] Comment on above: Performed By: #### L AB103, LAB17 ####Flame Channeler: ARA WRIGHT ([id number])[facility] [place] [address] [place] Chloride [Moles/Vol] 100 mmol/L Normal 98-107 [facility] Comment on above: Performed By: #### L AB103, LAB17 ####Flame Channeler: ARA WRIGHT ([phone])[facility] ([facility])[address] [place] [address] CO2 [Moles/Vol] 22 mmol/L Normal 22-30 [facility] Comment on above: Performed By: #### L AB103, LAB17 ####Flame Channeler: ARA WRIGHT ([id number])[facility] ([facility])[address] [place] [address] Creatinine [Mass/Vol] 0.79 mg/dL Normal 0.66-1.25 [facility] Comment on above: Performed By: #### L AB103, LAB17 ####Flame Channeler: ARA WRIGHT ([phone])[facility])[address] [place] [address] GLOMERULAR FILTRATION RATE ML/MIN/1.73 SQ M.PREDICTED >90.0 Normal >60.0 [facility] Comment on above: Result Comment: Calc ulation based on the Chronic Kidney Disease Epidemiology Collaboration (CKD-EPI) equation refit without adjustment for race Performed By: #### L AB103, LAB17 ####Flame Channeler: ARA WRIGHT ([phone])[facility] ([facility])[address] [place] [address] [place] Glucose [Mass/Vol] 111 mg/dL High 70-100 [facility] Comment on above: Performed By: #### L AB103, LAB17 ####Flame Channeler: ARA [id number])[facility])[address] [place] [address] Potassium [Moles/Vol] 3.4 mmol/L Low 3.5-5.1 [facility] Comment on above: Performed By: #### L AB103, LAB17 ####Flame Channeler: ARA WRIGHT ([phone])[facility] ([facility])[address] [place] [address] Protein [Mass/Vol] 6.8 g/dL Normal 6.3-8.2 [facility] Comment on above: Performed By: #### L AB103, LAB17 ####Flame Channeler: ARA WRIGHT ([id number])[facility] ([facility])[address] [place] [address] Sodium [Moles/Vol] 134 mmol/L Low 135-145 [facility] Comment on above: Performed By: #### L AB103, LAB17 ####Flame Channeler: ARA WRIGHT ([phone])[facility] ([facility])[address] [place] [address] Urea nitrogen [Mass/Vol] 12 mg/dL Normal 9-20 [facility] Comment on above: Performed By: #### L AB103, LAB17 ####Flame Channeler: ARA WRIGHT ([phone])[facility])[address] [place] [address] Comprehensive metabolic 1998 panelon 01-17-2024 Albumin [Mass/Vol] 3.9 g/dL 3.5 - 5.0 g/dL [facility] ALP [Catalytic activity/Vol] 64 U/L 38 - 126 U/L [facility] ALT [Catalytic activity/Vol] 19 U/L 0 - 49 U/L [facility] Anion gap [Moles/Vol] 11 mmol/L 3 - 13 mmol/L [facility] AST [Catalytic activity/Vol] 33 U/L 15 - 46 U/L [facility] Bilirubin [Mass/Vol] 0.8 mg/dL 0.2 - 1 .3 mg/dL [facility] Calcium [Mass/Vol] 8.9 mg/dL 8.4 - 10. 4 mg/dL [facility] Chloride [Moles/Vol] 100 mmol/L 98 - 10 7 mmol/L [facility] CO2 [Moles/Vol] 22 mmol/L 22 - 30 mmol/L [facility] Creatinine [Mass/Vol] 0.79 mg/dL 0.66 - 1.25 mg/dL [facility] GFR/1.73 sq M.predicted MDRD (S/P/Bld) [Vol rate/Area] - PINF [facility] Comment on above: Calculation based on the Chronic Kidney Disease Epidemiology Collaboration (CKD-EPI) equation refit without adjustment for race Glucose [Mass/Vol] 111 mg/dL High 70 - 100 mg/dL [facility] Interpretation and review of laboratory results Abnormal [facility] Potassium [Moles/Vol] 3.4 mmol/L Low 3.5 - 5.1 mmol/L [facility] Protein [Mass/Vol] 6.8 g/dL 6.3 - 8.2 g/dL [facility] Sodium [Moles/Vol] 134 mmol/L Low 135 - 145 mmol/L [facility] Urea nitrogen [Mass/Vol] 12 mg/dL 9 - 20 mg/dL [facility] [facility] IDNon 01-17-2024 IDN Normal [facility] Laboratory - Chemistry and C hemistry - challengeon 01-17-2024 Magnesium [Mass/Vol] 1.3 mg/dL Low 1.6 - 2 .3 mg/dL [facility] MAGNESIUMon 01-17-2024 Magnesium [Mass/Vol] 1.3 mg/dL Low 1.6-2.3 [facility] Comment on above: Performed By: #### L [id number], LAB17 ####Flame Channeler: ARA WRIGHT ([phone])[facility] ([address] Magnesium [Mass/Vol]on 01-16 Interpretation and review of laboratory results Abnormal [facility] Progress Noteon 01-17-2024 Progress Note Normal [facility] Progress Note Normal [facility] CBC W Auto Differential pane l (Bld)Ordered By: Rommel Card on 01-16-2024 Basophils (Bld) [#/Vol] 0.0 10*3/uL 0.0 - 0.2 10*3/uL [facility] Basophils/100 WBC (Bld) 0.3 % 0.0 - 2.0 % [facility] Eosinophils (Bld) [#/Vol] 0.0 10*3/uL 0.0 - 0.5 10*3/uL [facility] Eosinophils/100 WBC (Bld) 0.3 % 0.0 - 6.0 % [facility] Erythrocyte distribution width (RBC) [Ratio] 13.6 % 11.5 - 15.0 % [facility] Hematocrit (Bld) [Volume fraction] 33.2 % Low 40.0 - 52.0 % [facility] Hemoglobin (Bld) [Mass/Vol] 11.5 g/dL Low 13.0 - 18.0 g/dL [facility] Immature granulocytes (Bld) [#/Vol] 0.0 10*3/uL NINF - 0.1 10*3/uL [facility] Immature granulocytes/100 WBC (Bld) 0.3 % 0.0 - 2.0 % [facility] Interpretation and review of laboratory results Abnormal [facility] IPF 3 [facility] Lymphocytes (Bld) [#/Vol] 1.3 10*3/uL 1.0 - 4.3 10*3/uL [facility] Lymphocytes/100 WBC (Bld) 33.3 % 15.0 - 45.0 % [facility] MCH (RBC) [Entitic mass] 31.4 pg 26.0 - 34.0 pg [facility] MCHC (RBC) [Mass/Vol] 34.6 % 30.5 - 36.0 % [facility] MCV (RBC) [Entitic vol] 90.7 fL 77.0 - 99.0 fL [facility] Monocytes (Bld) [#/Vol] 0.3 10*3/uL 0.0 - 0.9 10*3/uL [facility] Monocytes/100 WBC (Bld) 7.0 % 5.0 - 13.0 % [facility] Neutrophils (Bld) [#/Vol] 2.3 10*3/uL 1.8 - 7.5 10*3/uL [facility] Neutrophils/100 WBC (Bld) 58.8 % 38.0 - 82.0 % [facility] Nucleated RBC/100 WBC (Bld) [Ratio] 0.0 % [facility] Platelet mean volume (Bld) [Entitic vol] 9.9 fL 9.0 - 12.7 fL [facility] Platelets (Bld) [#/Vol] 50 10*3/uL Low 140 - 440 10*3/uL [facility] RBC (Bld) [#/Vol] 3.66 10*6/uL Low 4.40 - 5.9 0 10*6/uL [facility] WBC (Bld) [#/Vol] 3.8 10*3/uL 3.6 - 10.7 10*3/uL [facility] CBC WITH AUTO DIFFERENTIALon 01-16-2024 Basophils (Bld) [#/Vol] 0.0 10*3/uL Normal 0.0-0.2 [facility] Comment on above: Performed By: #### L [id number] ####Flame Channeler: ARA WRIGHT ([phone])[facility])[address] [place] [address] Basophils/100 WBC (Bld) 0.3 % Normal 0.0-2.0 [facility] Comment on above: Performed By: #### L [id number] ####Flame Channeler: ARA WRIGHT ([phone])[facility])[address] [place] [address] Eosinophils (Bld) [#/Vol] 0.0 10*3/uL Normal 0.0-0.5 [facility] Comment on above: Performed By: #### L [id number] ####Flame Channeler: ARA WRIGHT ([phone])[facility])[address] [place] [address] Eosinophils/100 WBC (Bld) 0.3 % Normal 0.0-6.0 [facility] Comment on above: Performed By: #### L [id number] ####Flame Channeler: ARA WRIGHT ([phone])[facility])[address] [place] [address] Erythrocyte distribution width (RBC) [Ratio] 13.6 % Normal 11.5-15.0 [facility] Comment on above: Performed By: #### L [id number] ####Flame Channeler: ARA [phone])[facility])[address] [place] [address] Hematocrit (Bld) [Volume fraction] 33.2 % Low 40.0-52.0 [facility] Comment on above: Performed By: #### L [id number] ####Flame Channeler: ARA WRIGHT ([phone])[facility])[address] [place] [address] Hemoglobin (Bld) [Mass/Vol] 11.5 g/dL Low 13.0-18.0 [facility] Comment on above: Performed By: #### L [id number] ####Flame Channeler: ARA WRIGHT ([phone])[facility])[address] [place] [address] IMMATURE GRANS % 0.3 % Normal 0.0-2.0 [facility] Comment on above: Performed By: #### L [id number] ####Flame Channeler: ARA WRIGHT ([phone])[facility] ([facility])[address] [place] [address] IMMATURE GRANS ABSOLUTE 0.0 10*3/uL Normal <0.1 [facility] Comment on above: Performed By: #### L [id number] ####Flame Channeler: ARA WRIGHT ([phone])[facility])[address] [place] [address] [place] IPF 3 Normal [facility] Comment on above: Performed By: #### L [id number] ####Flame Channeler: ARA WRIGHT ([phone])[facility] ([facility])[address] [place] [address] [place] Lymphocytes (Bld) [#/Vol] 1.3 10*3/uL Normal 1.0-4.3 [facility] Comment on above: Performed By: #### L [id number] ####Flame Channeler: ARA WRIGHT ([phone])[facility])[address] [place] [address] [place] Lymphocytes/100 WBC (Bld) 33.3 % Normal 15.0-45.0 [facility] Comment on above: Performed By: #### L [id number] ####Flame Channeler: ARA WRIGHT ([phone])[facility])[address] [place] [address] MCH (RBC) [Entitic mass] 31.4 pg Normal 26.0-34.0 [facility] Comment on above: Performed By: #### L [id number] ####Flame Channeler: ARA WRIGHT ([phone])[facility])[address] [place] [address] MCHC 34.6 % Normal 30.5-36.0 [facility] Comment on above: Performed By: #### L [id number] ####Flame Channeler: ARA WRIGHT ([phone])[facility])[address] [place] [address] MCV (RBC) [Entitic vol] 90.7 fL Normal 77.0-99.0 [facility] Comment on above: Performed By: #### L [id number] ####Flame Channeler: ARA WRIGHT ([phone])[facility])[address] [place] [address] Monocytes (Bld) [#/Vol] 0.3 10*3/uL Normal 0.0-0.9 [facility] Comment on above: Performed By: #### L [id number] ####Flame Channeler: ARA WRIGHT ([phone])[facility])[address] [place] [address] Monocytes/100 WBC (Bld) 7.0 % Normal 5.0-13.0 [facility] Comment on above: Performed By: #### L [id number] ####Flame Channeler: ARA WRIGHT ([phone])[facility])[address] [place] [address] NEUTROPHILS ABSOLUTE 2.3 10*3/uL Normal 1.8-7.5 [facility] Comment on above: Performed By: #### L [id number] ####Flame Channeler: ARA WRIGHT ([phone])[facility] ([facility])[address] [place] [address] Neutrophils/100 WBC (Bld) 58.8 % Normal 38.0-82.0 [facility] Comment on above: Performed By: #### L [id number] ####Flame Channeler: ARA WRIGHT ([phone])[facility] ([facility])[address] [place] [address] NRBC 0.0 /100 WBCs Normal 0.0-2.0 [facility] Comment on above: Performed By: #### L [id number] ####Flame Channeler: ARA WIRGHT ([phone])[facility] ([facility])[address] [place] [address] Platelet mean volume (Bld) [Entitic vol] 9.9 fL Normal 9.0-12.7 [facility] Comment on above: Performed By: #### L [id number] ####Flame Channeler: ARA WRIGHT ([id number])[facility] ([facility])[address] [place] [address] Platelets (Bld) [#/Vol] 50 10*3/uL Low 140-440 [facility] Comment on above: Performed By: #### L [id number] ####Flame Channeler: ARA WRIGHT ([phone])[facility] ([facility])[address] [place] [address] RBC (Bld) [#/Vol] 3.66 10*6/uL Low 4.40-5.90 [facility] Comment on above: Performed By: #### L [id number] ####Flame Channeler: ARA WRIGHT ([phone])[facility] ([facility])[address] [place] [address] [place] WBC (Bld) [#/Vol] 3.8 10*3/uL Normal 3.6-10.7 [facility] Comment on above: Performed By: #### L [id number] ####Flame Channeler: ARA WRIGHT ([phone])[facility] ([facility])[address] [place] [address] COMPREHENSIVE METABOLIC PANE Peter 01-16-2024 Albumin [Mass/Vol] 4.3 g/dL Normal 3.5-5.0 [facility] Comment on above: Performed By: #### L 103, LAB17 ####Flame Channeler: ARA WRIGHT ([phone])[facility] ([facility])[address] [place] [address] ALP [Catalytic activity/Vol] 74 U/L Normal 38-126 [facility] Comment on above: Performed By: #### L 103, LAB17 ####Flame Channeler: ARA WRIGHT ([phone])[facility] ([facility])[address] [place] [address] ALT [Catalytic activity/Vol] 23 U/L Normal 0-49 [facility] Comment on above: Performed By: #### Popeye RODAS, LAB17 ####Flame Channeler: ARA WRIGHT ([phone])[facility] ([facility])[address] [place] [address] Anion gap [Moles/Vol] 14 mmol/L High 3-13 [facility] Comment on above: Performed By: #### L ADRIANNA, LAB17 ####Flame Channeler: ARA WRIGHT ([phone])[facility] ([facility])[address] [place] [address] AST [Catalytic activity/Vol] 47 U/L High 15-46 [facility] Comment on above: Performed By: #### L ADRIANNA, LAB17 ####Flame Channeler: ARA WRIGHT ([phone])[facility] ([facility])[address] [place] [address] [place] Bilirubin [Mass/Vol] 1.6 mg/dL High 0.2-1.3 [facility] Comment on above: Performed By: #### L AB103, LAB17 ####Flame Channeler: ARA WRIGHT ([phone])[facility] ([facility])[address] [place] [address] [place] Calcium [Mass/Vol] 8.6 mg/dL Normal 8.4-10.4 [facility] Comment on above: Performed By: #### L AB103, LAB17 ####Flame Channeler: ARA WRIGHT ([phone])[facility])[address] [place] [address] Chloride [Moles/Vol] 106 mmol/L Normal 98-107 [facility] Comment on above: Performed By: #### L 103, LAB17 ####Flame Channeler: ARA WRIGHT ([phone])[facility])[address] [place] [address] CO2 [Moles/Vol] 18 mmol/L Low 22-30 [facility] Comment on above: Performed By: #### Popeye RODAS, LAB17 ####Flame Channeler: ARA WRIGHT ([phone])[facility])[address] [place] [address] Creatinine [Mass/Vol] 0.71 mg/dL Normal 0.66-1.25 [facility] Comment on above: Performed By: #### Popeye DERAS103, LAB17 ####Flame Channeler: ARA WRIGHT ([phone])[facility])[address] [place] [address] GLOMERULAR FILTRATION RATE ML/MIN/1.73 SQ M.PREDICTED >90.0 Normal >60.0 [facility] Comment on above: Result Comment: Calc ulation based on the Chronic Kidney Disease Epidemiology Collaboration (CKD-EPI) equation refit without adjustment for race Performed By: #### L ADRIANNA, LAB17 ####Flame Channeler: ARA RWIGHT ([phone])[facility] ([facility])[address] [place] [address] Glucose [Mass/Vol] 84 mg/dL Normal 70-100 [facility] Comment on above: Performed By: #### L AB103, LAB17 ####Flame Channeler: ARA WRIGHT ([phone])[facility])[address] [place] [address] Potassium [Moles/Vol] 3.2 mmol/L Low 3.5-5.1 [facility] Comment on above: Performed By: #### L AB103, LAB17 ####Flame Channeler: ARA WRIGHT ([phone])[facility] ([facility])[address] [place] [address] Protein [Mass/Vol] 7.4 g/dL Normal 6.3-8.2 [facility] Comment on above: Performed By: #### Popeye DERAS103, LAB17 ####Flame Channeler: ARA WRIGHT ([phone])[facility] ([facility])[address] [place] [address] Sodium [Moles/Vol] 138 mmol/L Normal 135-145 [facility] Comment on above: Performed By: #### Popeye RODAS, LAB17 ####Flame Channeler: ARA WRIGHT ([phone])[facility] ([facility])[address] [place] [address] Urea nitrogen [Mass/Vol] 11 mg/dL Normal 9-20 [facility] Comment on above: Performed By: #### Popeye RODAS, LAB17 ####Flame Channeler: ARA WRIGHT ([phone])[facility] ([facility])[address] [place] [address] Comprehensive metabolic 1998 panelon 01-16-2024 Albumin [Mass/Vol] 4.3 g/dL 3.5 - 5.0 g/dL [facility] ALP [Catalytic activity/Vol] 74 U/L 38 - 126 U/L [facility] ALT [Catalytic activity/Vol] 23 U/L 0 - 49 U/L [facility] Anion gap [Moles/Vol] 14 mmol/L High 3 - 13 mmol/L [facility] AST [Catalytic activity/Vol] 47 U/L High 15 - 46 U/L [facility] Bilirubin [Mass/Vol] 1.6 mg/dL High 0.2 - 1 .3 mg/dL [facility] Calcium [Mass/Vol] 8.6 mg/dL 8.4 - 10. 4 mg/dL [facility] Chloride [Moles/Vol] 106 mmol/L 98 - 10 7 mmol/L [facility] CO2 [Moles/Vol] 18 mmol/L Low 22 - 30 mmol/L [facility] Creatinine [Mass/Vol] 0.71 mg/dL 0.66 - 1.25 mg/dL [facility] GFR/1.73 sq M.predicted MDRD (S/P/Bld) [Vol rate/Area] - PINF [facility] Comment on above: Calculation based on the Chronic Kidney Disease Epidemiology Collaboration (CKD-EPI) equation refit without adjustment for race Glucose [Mass/Vol] 84 mg/dL 70 - 100 mg/dL [facility] Interpretation and review of laboratory results Abnormal [facility] Potassium [Moles/Vol] 3.2 mmol/L Low 3.5 - 5.1 mmol/L [facility] Protein [Mass/Vol] 7.4 g/dL 6.3 - 8.2 g/dL [facility] Sodium [Moles/Vol] 138 mmol/L 135 - 145 mmol/L [facility] Urea nitrogen [Mass/Vol] 11 mg/dL 9 - 20 mg/dL [facility] Consulton 01-16-2024 Consult Normal [facility] IDNon 01-16-2024 IDN Normal [facility] Laboratory - Chemistry and C hemistry - challengeon 01-16-2024 Magnesium [Mass/Vol] 1.4 mg/dL Low 1.6 - 2 .3 mg/dL [facility] MAGNESIUMon 01-16-2024 Magnesium [Mass/Vol] 1.4 mg/dL Low 1.6-2.3 [facility] Comment on above: Performed By: #### L AB103, LAB17 ####Flame Channeler: ARA WRIGHT ([phone])[address] Magnesium [Mass/Vol]on 01-15 Interpretation and review of laboratory results Abnormal [facility] Progress Noteon 01-16-2024 Progress Note Normal [facility] Progress Note Normal [facility] Progress Note Normal [facility] CBC W Auto Differential pane l (Bld)Ordered By: Warner Francisco on 01-15-2024 Basophils (Bld) [#/Vol] 0.0 10*3/uL 0.0 - 0.2 10*3/uL [facility] Basophils/100 WBC (Bld) 0.5 % 0.0 - 2.0 % [facility] Eosinophils (Bld) [#/Vol] 0.0 10*3/uL 0.0 - 0.5 10*3/uL [facility] Eosinophils/100 WBC (Bld) 0.4 % 0.0 - 6.0 % [facility] Erythrocyte distribution width (RBC) [Ratio] 13.6 % 11.5 - 15.0 % [facility] Hematocrit (Bld) [Volume fraction] 34.5 % Low 40.0 - 52.0 % [facility] Hemoglobin (Bld) [Mass/Vol] 12.7 g/dL Low 13.0 - 18.0 g/dL [facility] Immature granulocytes (Bld) [#/Vol] 0.0 10*3/uL NINF - 0.1 10*3/uL [facility] Immature granulocytes/100 WBC (Bld) 0.3 % 0.0 - 2.0 % [facility] Interpretation and review of laboratory results Abnormal [facility] Lymphocytes (Bld) [#/Vol] 1.5 10*3/uL 1.0 - 4.3 10*3/uL [facility] Lymphocytes/100 WBC (Bld) 19.8 % 15.0 - 45.0 % [facility] MCH (RBC) [Entitic mass] 33.2 pg 26.0 - 34.0 pg [facility] MCHC (RBC) [Mass/Vol] 36.8 % High 30.5 - 36.0 % [facility] MCV (RBC) [Entitic vol] 90.1 fL 77.0 - 99.0 fL [facility] Monocytes (Bld) [#/Vol] 0.2 10*3/uL 0.0 - 0.9 10*3/uL [facility] Monocytes/100 WBC (Bld) 2.4 % Low 5.0 - 13.0 % [facility] Neutrophils (Bld) [#/Vol] 5.7 10*3/uL 1.8 - 7.5 10*3/uL [facility] Neutrophils/100 WBC (Bld) 76.6 % 38.0 - 82.0 % [facility] Nucleated RBC/100 WBC (Bld) [Ratio] 0.0 % [facility] Platelet mean volume (Bld) [Entitic vol] 9.4 fL 9.0 - 12.7 fL [facility] Platelets (Bld) [#/Vol] 73 10*3/uL Low 140 - 440 10*3/uL [facility] RBC (Bld) [#/Vol] 3.83 10*6/uL Low 4.40 - 5.9 0 10*6/uL [facility] WBC (Bld) [#/Vol] 7.4 10*3/uL 3.6 - 10.7 10*3/uL [facility] CBC WITH AUTO DIFFERENTIALon 01-15-2024 Basophils (Bld) [#/Vol] 0.0 10*3/uL Normal 0.0-0.2 [facility] Comment on above: Performed By: #### L [id number] ####Flame Channeler: ARA WRIGHT ([phone])[facility])[address] [place] [address] Basophils/100 WBC (Bld) 0.5 % Normal 0.0-2.0 [facility] Comment on above: Performed By: #### L [id number] ####Flame Channeler: ARA WRIGHT ([phone])[facility])[address] [place] [address] [place] Eosinophils (Bld) [#/Vol] 0.0 10*3/uL Normal 0.0-0.5 [facility] Comment on above: Performed By: #### L [id number] ####Flame Channeler: ARA WRIGHT ([phone])[facility])[address] [place] [address] [place] Eosinophils/100 WBC (Bld) 0.4 % Normal 0.0-6.0 [facility] Comment on above: Performed By: #### L [id number] ####Flame Channeler: ARA WRIGHT ([phone])[facility])[address] [place] [address] Erythrocyte distribution width (RBC) [Ratio] 13.6 % Normal 11.5-15.0 [facility] Comment on above: Performed By: #### L [id number] ####Flame Channeler: ARA WRIGHT ([phone])[facility] ([facility])[address] [place] [address] Hematocrit (Bld) [Volume fraction] 34.5 % Low 40.0-52.0 [facility] Comment on above: Performed By: #### L [id number] ####Flame Channeler: ARA WRIGHT ([phone])[facility])[address] [place] [address] Hemoglobin (Bld) [Mass/Vol] 12.7 g/dL Low 13.0-18.0 [facility] Comment on above: Performed By: #### L [id number] ####Flame Channeler: ARA WRIGHT ([id number])[facility])[address] [place] [address] IMMATURE GRANS % 0.3 % Normal 0.0-2.0 [facility] Comment on above: Performed By: #### L [id number] ####Flame Channeler: ARA WRIGHT ([phone])[facility])[address] [place] [address] IMMATURE GRANS ABSOLUTE 0.0 10*3/uL Normal <0.1 [facility] Comment on above: Performed By: #### L [id number] ####Flame Channeler: ARA WRIGHT ([id number])[facility])[address] [place] [address] Lymphocytes (Bld) [#/Vol] 1.5 10*3/uL Normal 1.0-4.3 [facility] Comment on above: Performed By: #### L [id number] ####Flame Channeler: ARA WRIGHT ([phone])[facility] ([facility])[address] [place] [address] [place] Lymphocytes/100 WBC (Bld) 19.8 % Normal 15.0-45.0 [facility] Comment on above: Performed By: #### L [id number] ####Flame Channeler: ARA WRIGHT ([phone])[facility])[address] [place] [address] MCH (RBC) [Entitic mass] 33.2 pg Normal 26.0-34.0 [facility] Comment on above: Performed By: #### L [id number] ####Flame Channeler: ARA WRIGHT ([phone])[facility] ([facility])[address] [place] [address] MCHC 36.8 % High 30.5-36.0 [facility] Comment on above: Performed By: #### L [id number] ####Flame Channeler: ARA WRIGHT ([phone])[facility] ([facility])[address] [place] [address] MCV (RBC) [Entitic vol] 90.1 fL Normal 77.0-99.0 [facility] Comment on above: Performed By: #### L [id number] ####Flame Channeler: ARA WRIGHT ([phone])[facility])[address] [place] [address] Monocytes (Bld) [#/Vol] 0.2 10*3/uL Normal 0.0-0.9 [facility] Comment on above: Performed By: #### L [id number] ####Flame Channeler: ARA WRIGHT ([phone])[facility] ([facility])[address] [place] [address] [place] Monocytes/100 WBC (Bld) 2.4 % Low 5.0-13.0 [facility] Comment on above: Performed By: #### L [id number] ####Flame Channeler: ARA WRIGHT ([id number])[facility] ([facility])[address] [place] [address] NEUTROPHILS ABSOLUTE 5.7 10*3/uL Normal 1.8-7.5 [facility] Comment on above: Performed By: #### L [id number] ####Flame Channeler: ARA WRIGHT ([phone])[facility] ([facility])[address] [place] [address] [place] Neutrophils/100 WBC (Bld) 76.6 % Normal 38.0-82.0 [facility] Comment on above: Performed By: #### L [id number] ####Flame Channeler: ARA WRIGHT ([phone])[facility] ([facility])[address] [place] [address] [place] NRBC 0.0 /100 WBCs Normal 0.0-2.0 [facility] Comment on above: Performed By: #### L [id number] ####Flame Channeler: ARA WRIGHT ([phone])[facility] ([facility])[address] [place] [address] [place] Platelet mean volume (Bld) [Entitic vol] 9.4 fL Normal 9.0-12.7 [facility] Comment on above: Performed By: #### L [id number] ####Flame Channeler: ARA WRIGHT ([phone])[facility] ([facility])[address] [place] [address] [place] Platelets (Bld) [#/Vol] 73 10*3/uL Low 140-440 [facility] Comment on above: Performed By: #### L [id number] ####Flame Channeler: ARA WRIGHT ([phone])[facility]ALTH[facility] DUNCAN R[facility]TMAN (SWRLAB)[address] [place] [address] [place] RBC (Bld) [#/Vol] 3.83 10*6/uL Low 4.40-5.90 [facility] Comment on above: Performed By: #### L [id number] ####Flame Channeler: ARA WRIGHT ([phone])[facility]ALTHOctavia DUNCAN RITTMAN (SWRLAB)[address] [place] [address] [place] WBC (Bld) [#/Vol] 7.4 10*3/uL Normal 3.6-10.7 [facility] Comment on above: Performed By: #### L [id number] ####Flame Channeler: ARA WRIGHT ([phone])[facility] HEALTHOctavia DUNCAN RITTMAN (SWRLAB)[address] COMPLETE URINALYSISon 2023 AMORPHOUS URATES (#/HPF) IN URINE Few Abnormal Negative [facility] Comment on above: Performed By: #### L [id number] ####Flame Channeler: ARA WRIGHT ([phone])[facility] [place] [facility] (SWRLAB)[address] [place] [address] [place] BACTERIA (#/HPF) IN URINE Few Abnormal Negative [facility] Comment on above: Performed By: #### L [id number] ####Flame Channeler: ARA WRIGHT ([phone])[facility] [place] [facility] (SWRLAB)[address] [place] [address] [place] BILIRUBIN, TOTAL PRESENCE IN URINE Negative Normal Negative [facility] Comment on above: Performed By: #### L [id number] ####Flame Channeler: ARA WRIGHT ([phone])[facility] [place] [facility] (SWRLAB)[address] [place] [address] Clarity (U) Clear Normal Clear [facility] Comment on above: Performed By: #### L [id number] ####Flame Channeler: ARA WRIGHT ([phone])[facility] [place] [facility] (SWRLAB)[address] [place] [address] Color (U) Light Yellow Normal Lt. Yellow [facility] Comment on above: Performed By: #### L [id number] ####Flame Channeler: ARA WRIGHT ([id number])[facility] (SWRL[facility])[address] [place] [address] [place] GLUCOSE (MG/DL) IN URINE Normal Normal Normal (<70) [facility] Comment on above: Performed By: #### L [id number] ####Flame Channeler: ARA WRIGHT ([id number])[facility] ([facility])[address] [place] [address] [place] HEMOGLOBIN PRESENCE IN URINE Negative Normal Negative [facility] Comment on above: Performed By: #### L [id number] ####Flame Channeler: ARA WRIGHT ([id number])[facility] ([facility])[address] [place] [address] [place] Ketones Ql (U) Trace Abnormal Negative [facility] Comment on above: Performed By: #### L [id number] ####Flame Channeler: ARA WRIGHT ([phone])[facility] ([facility])[address] [place] [address] LEUKOCYTE ESTERASE PRESENCE IN URINE BY TEST STRIP Negative Normal Negative [facility] Comment on above: Performed By: #### L [id number] ####Flame Channeler: ARA WRIGHT ([phone])[facility] ([facility])[address] [place] [address] NITRITE PRESENCE IN URINE Negative Normal Negative [facility] Comment on above: Performed By: #### L [id number] ####Flame Channeler: ARA WRIGHT ([phone])[facility] ([facility])[address] [place] [address] [place] pH (U) 5.5 [pH] Normal 5.0-8.0 [facility] Comment on above: Performed By: #### L [id number] ####Flame Channeler: ARA WRIGHT ([phone])[facility] ([facility])[address] [place] [address] [place] Protein (U) [Mass/Vol] 20 mg/dL Abnormal Negative [facility] Comment on above: Performed By: #### L [id number] ####Flame Channeler: ARA WRIGHT ([id number])[facility] ([facility])[address] [place] [address] [place] RBC (#/HPF) IN URINE SEDIMENT Negative Normal 0-2 [facility] Comment on above: Performed By: #### L [id number] ####Flame Channeler: ARA WRIGHT ([phone])[facility] [place] (SWRLAB)[address] Specific gravity (U) [Rel density] 1.014 Normal 1.005-1.030 [facility] Comment on above: Performed By: #### L [id number] ####Flame Channeler: ARA WRIGHT ([id number])[facility] ([facility])[address] [place] [address] Specimen volume (U) 12 mL Normal [facility] Comment on above: Performed By: #### L [id number] ####Flame Channeler: ARA WRIGHT ([phone])[facility] ([facility])[address] [place] [address] SQUAMOUS EPITHELIAL CELLS (#/HPF) IN URINE SEDIMENT Negative Normal 3-5 [facility] Comment on above: Performed By: #### L [id number] ####Flame Channeler: ARA WRIGHT ([phone])[facility] ([facility])[address] [place] [address] [place] UROBILINOGEN (MG/DL) IN URINE Normal Normal Normal (0-1) [facility] Comment on above: Performed By: #### L [id number] ####Flame Channeler: ARA WRIGHT ([phone])[facility] ([facility])[address] [place] [address] [place] WBC (LEUKOCYTE) (#/HPF) IN URINE SEDIMENT Negative Normal 0-5 [facility] Comment on above: Performed By: #### L [id number] ####Flame Channeler: ARA WRIGHT ([phone])[facility] ([facility])[address] [place] [address] COMPREHENSIVE METABOLIC PANE Peter 01-15-2024 Albumin [Mass/Vol] 4.7 g/dL Normal 3.5-5.0 [facility] Comment on above: Performed By: #### Popeye DERAS99, LAB17 ####Flame Channeler: ARA WRIGHT ([phone])[facility] ([facility])[address] ALP [Catalytic activity/Vol] 86 U/L Normal 38-126 [facility] Comment on above: Performed By: #### L AB99, LAB17 ####Flame Channeler: ARA WRIGHT ([phone])[facility] ([facility])[address] ALT [Catalytic activity/Vol] 29 U/L Normal 0-49 [facility] Comment on above: Performed By: #### Popeye DERAS99, LAB17 ####Flame Channeler: ARA WRIGHT ([phone])[facility] ([facility])[address] Anion gap [Moles/Vol] 14 mmol/L High 3-13 [facility] Comment on above: Performed By: #### Popeye DERAS99, LAB17 ####Flame Channeler: ARA WRIGHT ([phone])[facility] ([facility])[address] AST [Catalytic activity/Vol] 58 U/L High 15-46 [facility] Comment on above: Performed By: #### L AB99, LAB17 ####Flame Channeler: ARA WRIGHT ([phone])[facility] ([facility])[address] [place] [address] [place] Bilirubin [Mass/Vol] 1.8 mg/dL High 0.2-1.3 [facility] Comment on above: Performed By: #### L AB99, LAB17 ####Flame Channeler: ARA WRIGHT ([phone])[facility] ([facility])[address] [place] [address] [place] Calcium [Mass/Vol] 9.6 mg/dL Normal 8.4-10.4 [facility] Comment on above: Performed By: #### Popeye LASSITER, LAB17 ####Flame Channeler: ARA WRIGHT ([phone])[facility] ([facility])[address] [place] [address] [place] Chloride [Moles/Vol] 109 mmol/L High 98-107 [facility] Comment on above: Performed By: #### Popeye LASSITER, LAB17 ####Flame Channeler: ARA WRIGHT ([id number])[facility] ([facility])[address] [place] [address] [place] CO2 [Moles/Vol] 17 mmol/L Low 22-30 [facility] Comment on above: Performed By: #### Popeye LASSITER, LAB17 ####Flame Channeler: ARA WRIGHT ([phone])[facility] ([facility])[address] [place] [address] [place] Creatinine [Mass/Vol] 0.90 mg/dL Normal 0.66-1.25 [facility] Comment on above: Performed By: #### Popeye LASSITER, LAB17 ####Flame Channeler: ARA WRIGHT ([phone])[facility] ([facility])[address] [place] [address] GLOMERULAR FILTRATION RATE ML/MIN/1.73 SQ M.PREDICTED >90.0 Normal >60.0 [facility] Comment on above: Result Comment: Calc ulation based on the Chronic Kidney Disease Epidemiology Collaboration (CKD-EPI) equation refit without adjustment for race Performed By: #### L SRAVANI, LAB17 ####Flame Channeler: ARA WRIGHT ([phone])[facility] ([facility])[address] [place] [address] [place] Glucose [Mass/Vol] 133 mg/dL High 70-100 [facility] Comment on above: Performed By: #### L SRAVANI, LAB17 ####Flame Channeler: ARA WRIGHT ([phone])[facility] ([facility])[address] Potassium [Moles/Vol] 4.0 mmol/L Normal 3.5-5.1 [facility] Comment on above: Performed By: #### L AB99, LAB17 ####Flame Channeler: ARA WRIGHT ([phone])[facility] ([facility])[address] Protein [Mass/Vol] 8.1 g/dL Normal 6.3-8.2 [facility] Comment on above: Performed By: #### L AB99, LAB17 ####Flame Channeler: ARA WRIGHT ([id number])[facility] ([facility])[address] Sodium [Moles/Vol] 140 mmol/L Normal 135-145 [facility] Comment on above: Performed By: #### L AB99, LAB17 ####Flame Channeler: ARA WRIGHT ([phone])[facility] ([facility])[address] Urea nitrogen [Mass/Vol] 11 mg/dL Normal 9-20 [facility] Comment on above: Performed By: #### L AB99, LAB17 ####Flame Channeler: ARA WRIGHT ([phone])[facility] ([facility])[address] Comprehensive metabolic 1998 panelon 01-15-2024 Albumin [Mass/Vol] 4.7 g/dL 3.5 - 5.0 g/dL [facility] ALP [Catalytic activity/Vol] 86 U/L 38 - 126 U/L [facility] ALT [Catalytic activity/Vol] 29 U/L 0 - 49 U/L [facility] Anion gap [Moles/Vol] 14 mmol/L High 3 - 13 mmol/L [facility] AST [Catalytic activity/Vol] 58 U/L High 15 - 46 U/L [facility] Bilirubin [Mass/Vol] 1.8 mg/dL High 0.2 - 1 .3 mg/dL [facility] Calcium [Mass/Vol] 9.6 mg/dL 8.4 - 10. 4 mg/dL [facility] Chloride [Moles/Vol] 109 mmol/L High 98 - 10 7 mmol/L [facility] CO2 [Moles/Vol] 17 mmol/L Low 22 - 30 mmol/L [facility] Creatinine [Mass/Vol] 0.90 mg/dL 0.66 - 1.25 mg/dL [facility] GFR/1.73 sq M.predicted MDRD (S/P/Bld) [Vol rate/Area] - PINF [facility] Comment on above: Calculation based on the Chronic Kidney Disease Epidemiology Collaboration (CKD-EPI) equation refit without adjustment for race Glucose [Mass/Vol] 133 mg/dL High 70 - 100 mg/dL [facility] Interpretation and review of laboratory results Abnormal [facility] Potassium [Moles/Vol] 4.0 mmol/L 3.5 - 5.1 mmol/L [facility] Protein [Mass/Vol] 8.1 g/dL 6.3 - 8.2 g/dL [facility] Sodium [Moles/Vol] 140 mmol/L 135 - 145 mmol/L [facility] Urea nitrogen [Mass/Vol] 11 mg/dL 9 - 20 mg/dL [facility] DRUGS OF ABUSEon 01-15-2024 AMPHETAMINE SCREEN Negative Normal [facility] Comment on above: Performed By: #### L [id number] ####Flame Channeler: ARA WRIGHT ([id number])[facility] [place] [facility] ([facility])[address] [place] [address] BARBITURATES SCREEN Negative Normal [facility] Comment on above: Performed By: #### L [id number] ####Flame Channeler: ARA WRIGHT ([phone])[facility] [place] (SWRL[facility])[address] [place] [address] BENZODIAZEPINE SCREEN Negative Normal [facility] Comment on above: Performed By: #### L [id number] ####Flame Channeler: ARA WRIGHT ([id number])[facility])[address] COCAINE METAB. SCREEN Negative Normal [facility] Comment on above: Performed By: #### L [id number] ####Flame Channeler: ARA WRIGHT ([id number])[facility] [place] ([facility])[address] METHADONE SCREEN Negative Normal [facility] Comment on above: Performed By: #### L [id number] ####Flame Channeler: ARA WRIGHT ([id number])[facility] [place] ([facility])[address] OPIATES SCREEN Positive Normal [facility] Comment on above: Performed By: #### L [id number] ####Flame Channeler: ARA WRIGHT ([id number])[facility] ([facility])[address] [place] [address] OXYCODONE SCREEN Negative Normal [facility] Comment on above: Performed By: #### L [id number] ####Flame Channeler: ARA WRIGHT ([id number])[facility] [place] ([facility])[address] [place] [address] PHENCYCLIDINE SCREEN Negative Normal [facility] Comment on above: Result Comment: CLAIRE Rivera COMMENTS:The expected value for all of the drugs listed above is Negative.The following drugs or drug groups have been screened for by Immunoassay at the following thresholds:Amphetamine class (1000 ng/mL)Barbiturates (200 ng/mL)Benzodiazepines (200 ng/mL)Cocaine (300 ng/mL)Methadone (300 ng/mL)Opiates (300 ng/mL)Oxycodone (100 ng/mL)PCP (25 ng/mL)NOTE: These results are for medical treatment only. Analysis performed using non-forensic procedures. POSITIVE results are NOT confirmed by a more specificalternative method unless requested. If confirmation is needed, request confirmation under separate order. Performed By: #### L [id number] ####Flame Channeler: ARA WRIGHT ([phone])[facility] ([facility])[address] ED Nursing Noteon 01-15-2024 ED Nursing Note Phoned [facility]. Hand off report given to MEGGAN Laurent. Nurse requesting that patient have another dose of ativan prior to leaving. Physician informed. Pratibha Okeefe RN 01/15/24 1647 Normal [facility] ED Nursing Note RN spoke Christie per patient request and asked her to bring him glasses and his cane, Christie acknowledged and thanked RN for the call. Aubree Ratliff RN 01/15/24 1322 Normal [facility] ED Nursing Note Patient declined any thing to eat or drink at this time. Call light within reach Pratibha Okeefe RN 01/15/24 1241 Normal [facility] ED Nursing Note Normal [facility] ED Provider Noteon ED Provider Note Normal [facility] ETHANOLon 01-15-2024 ETHANOL IN SER/PLAS <0.010 Normal 0.000-0.010 [facility] Comment on above: Result Comment: CLAIRE Rivera COMMENTS:NOTE: This result is for medical treatment only. Analysis performed using non-forensic procedures. Performed By: #### L AB46 ####Flame Channeler: ARA WRIGHT ([phone])[facility] (RLAB)[address] [place] [address] Ethanol (Bld) [Mass/Vol]on 0 01-15-2024 Ethanol [Mass/Vol] g/dL 0.000 - 0.010 g/dL [facility] Interpretation and review of laboratory results Normal [facility] IDNon 01-15-2024 IDN Normal [facility] LIPASEon 01-15-2024 Lipase [Catalytic activity/Vol] 124 U/L Normal 23-300 [facility] Comment on above: Performed By: #### L AB99, LAB17 ####Flame Channeler: ARA WRIGHT ([id number])[facility] ([facility])[address] [place] [address] Laboratory - Chemistry and C hemistry - challengeon 01-15-2024 Lipase [Catalytic activity/Vol] 124 U/L 23 - 300 U/L [facility] - Drug toxicology Ordered By: Perla Garcia on 01-15-2024 Amphetamines Screen method >1000 ng/mL Ql (U) Negative [facility] Barbiturates Screen method >200 ng/mL Ql (U) Negative [facility] Benzodiazepines Ql (U) Negative [facility] Methadone Screen Ql (U) Negative [facility] Opiates Screen Ql (U) Positive [facility] oxyCODONE Ql (U) Negative [facility] Phencyclidine Ql (U) Negative [facility] Laboratory - Microbiology an d Antimicrobial susceptibilityon 01-15-2024 SARS-CoV-2 (COVID-19) Ag IA.rapid Ql (Resp) Positive Abnormal Negative [facility] Comment on above: This test detects moreno th viable and non-viable virus. Positive results do not differentiate between SARS-CoV and SARS-CoV-2. If differentiation of specific SARS is needed, additional testing with a NAAT-based method is required. Method: Lateral flow immunoassay. Fact sheets for healthcare providers and patients can be found at the following sites: https://www.fda.gov/media/765110/download https://www.fda.gov/media/792247/download Lipase [Catalytic activity/V ol]on 01-15-2024 Interpretation and review of laboratory results Normal [facility] No Panel InformationOrdered By: Perla Garcia on 01-15-2024 COCAINE METAB. SCREEN Negative [facility] The expected value f or all of the drugs listed above is Negative. The following drugs or drug groups have been screened for by Immunoassay at the following thresholds: Amphetamine class (1000 ng/mL) Barbiturates (200 ng/mL) Benzodiazepines (200 ng/mL) Cocaine (300 ng/mL) Methadone (300 ng/mL) Opiates (300 ng/mL) Oxycodone (100 ng/mL) PCP (25 ng/mL) NOTE: These results are for medical treatment only. Analysis performed using non-forensic procedures. POSITIVE results are NOT confirmed by a more specific alternative method unless requested. If confirmation is needed, request confirmation under separate order. [facility] No Panel Informationon 01-14 [facility] SARS-COV-2 ANTIGENon 024 SARS-COV-2 ANTIGEN Normal [facility] Comment on above: Performed By: #### L [id number] ####Flame Channeler: ARA WRIGHT ([phone])[facility] (SWRL[facility])[address] [place] [address] SARS-CoV-2 (COVID-19) Ag IA. rapid Ql (Resp)on 01-15-2024 Interpretation and review of laboratory results Abnormal [facility] Urinalysis complete panel (U )on 01-15-2024 Amorphous Urates, Urine Few Abnormal Negative /HPF [facility] Bacteria LM.HPF (Urine sed) [#/Area] Few Abnormal Negative /HPF [facility] Bilirubin Ql (U) Negative Negative mg/dL [facility] Clarity (U) Clear Clear [facility] Color (U) Light Yellow Lt. Yellow [facility] Epithelial cells.squamous LM.HPF (Urine sed) [#/Area] Negative [facility] Glucose Ql (U) Normal Normal (<70) mg/dL [facility] Hemoglobin Ql (U) Negative Negative mg/dL [facility] Interpretation and review of laboratory results Abnormal [facility] Ketones (U) [Mass/Vol] Trace Abnormal Negat zenia mg/dL [facility] Leukocyte esterase Test strip Ql (U) Negative Negative Emma/uL [facility] Nitrite Ql (U) Negative Negative [facility] pH (U) 5.5 [pH] 5.0 - 8.0 pH [facility] Protein (U) [Mass/Vol] 20 mg/dL Abnormal Negative [facility] RBC LM.HPF (Urine sed) [#/Area] Negative [facility] Specific gravity (U) [Rel density] 1.014 1.005 - 1.030 [facility] Urobilinogen (U) [Mass/Vol] Normal Normal (0-1) mg/dL [facility] Volume, Urine 12 mL [facility] WBC LM.HPF (Urine sed) [#/Area] Negative [facility] CNPNon 12-29-2023 CNPN Telephone (GSTNOR) ----- WOODY NI ([id number]) 1960 M T Date Time Provider Department 12/29/23 MUNIRA STALEY During your visit today, we recorded the following information about you: Simin Benjamin MA 12/29/2023 10:50 AM Signed Left lab results on Jose Juan VM Allergies As of Date: 12/29/2023 Noted Allergy Reaction ALLOPURINOL 06/05/2017 14 - Other: See Comments Comments: Breaks out in blisters CODEINE 12/24/2023 8 - GI Upset PENICILLIN 06/05/2017 7 - Swelling Date Reviewed: 12/25/2023 Reviewed by: Curtis Isabel RT(R) - Fully Assessed Reason for Visit: Results [95] Prescriptions as of 12/29/2023 - Calcium Carb-Magnesium Cmb #10 200 mg calcium- 100 mg chew Take by mouth. - cyanocobalamin (VITAMIN B-12) 100 mcg tab Take 100 mcg by mouth once daily. - dicyclomine (BENTYL) 20 mg tablet Take 20 mg by mouth before meals and at bedtime. - famotidine (PEPCID) 20 mg tablet Take 20 mg by mouth two times a day. - folic acid 1 mg tablet Take 1 mg by mouth once daily. - hydrocortisone (HYTONE) 2.5 % lotion Apply to affected area two times a day. - magnesium oxide 400 mg magnesium tab Take by mouth. - olmesartan (BENICAR) 40 mg tablet Take 40 mg by mouth once daily. - sodium chloride 1,000 mg TbSO Take 1,000 mg by mouth three times a day. - tamsulosin (FLOMAX) 0.4 mg Take 0.4 mg by mouth once daily. - THIAMINE HCL ORAL Take by mouth. - pantoprazole DR (PROTONIX) 40 mg tablet Take 1 tablet by mouth two times a day. On empty stomach at least 30 minutes before eating. - ondansetron (ZOFRAN) 8 mg tablet Take 1 tablet by mouth every 8 hours as needed for nausea/vomiting. - albuterol (PROVENTIL) 2.5 mg /3 mL (0.083 %) nebulizer solution Use 2.5 mg via nebulizer as needed. - alendronate (FOSAMAX) 70 mg tablet Take 70 mg by mouth once each week. - amLODIPine (NORVASC) 2.5 mg tablet Take 2.5 mg by mouth once daily. - potassium chloride SR (MICRO-K) 10 mEq CR capsule Take 10 mEq by mouth once daily. Problem List As Of Date 12/29/2023 Noted Resolved Cirrhosis (HCC) [K74.60] Hepatitis [K75.9] Thyroid disease [E07.9] Sleep apnea [G47.30] Diabetes (HCC) [E11.9] Asthma [J45.909] Essential hypertension [I10] HLD (hyperlipidemia) [E78.5] Lumbar stenosis [M48.061] 06/10/2017 Encounter Status:Closed by SIMIN BENJAMIN on 12/29/[address] [facility] A1AT SerPl-mCncon 12-25-2023 Alpha 1 antitrypsin [Mass/Vol] 147 mg/dL Normal 90-200 [facility] Comment on above: Order Comment: Speci radha Type: BLOOD SPECIMEN Ordering Facility: [facility] Address: [address] [place] [address] Performed By: #### 2 276-4, 2064-4, 1825-9, 3040-3 #### [facility] CLIA [id number] [address] [place] [address] [place] JONH BY IFA WITH REFLEXon Nuclear Ab Ql (S) Negative Normal Negative [facility] Comment on above: Order Comment: Kel garcia Type: BLOOD SPECIMEN Ordering Facility: [facility] Address: [facility], [place] [address] Result Comment: Anti -nuclear antibody test is used as an aid in diagnosis of systemic autoimmune diseases. Where positive and clinically warranted, follow-up using disease-specific testing is recommended. Low positive titers are not uncommon with advanced age, certain chronic infections, and malignancies among others. Test methodology: Indirect fluorescence immunoassay (IFA) using HEp-2 cells. Performed By: #### P LATF4 #### [facility] CLIA [id number] [address] [place] [address] [place] Ammonia Plas-sCncon 12-25-19 24 Ammonia (P) [Moles/Vol] 17 umol/L Normal 16-60 [facility] Comment on above: Order Comment: Speci men Type: BLOOD SPECIMEN Ordering Facility: [facility] Address: [facility], [place] [address] Performed By: #### P LATF4 #### [facility] CLIA [id number] [address] [place] [address] [place] CBC W Auto Differential pane l (Bld)on 12-25-2023 Basophils (Bld) [#/Vol] 0.04 10*3/uL Normal <0.11 [facility] Comment on above: Order Comment: Speci men Type: BLOOD SPECIMEN Ordering Facility: [facility] Address: [address] [place] [address] Performed By: #### 5 7021-8 #### [facility] CLIA [id number] [address] [place] [address] [place] Basophils/100 WBC (Bld) 0.4 % Normal [facility] Comment on above: Order Comment: Speci men Type: BLOOD SPECIMEN Ordering Facility: [facility] Address: [address] [place] [address] Performed By: #### 5 7021-8 #### [facility] CLIA [id number] [address] [place] [address] [place] Differential cell count method Nom (Bld) Auto Normal [facility] Comment on above: Order Comment: Speci men Type: BLOOD SPECIMEN Ordering Facility: [facility] Address: [address] [place] [address] Performed By: #### 5 7021-8 #### [facility] CLIA [id number] [address] [place] [address] [place] Eosinophils (Bld) [#/Vol] 0.04 10*3/uL Normal <0.46 [facility] Comment on above: Order Comment: Speci men Type: BLOOD SPECIMEN Ordering Facility: [facility] Address: [address] [place] [address] Performed By: #### 5 7021-8 #### [facility] CLIA [id number] [address] [place] [address] [place] Eosinophils/100 WBC (Bld) 0.4 % Normal [facility] Comment on above: Order Comment: Speci men Type: BLOOD SPECIMEN Ordering Facility: [facility] Address: [address] [place] [address] Performed By: #### 5 7021-8 #### [facility] CLIA [id number] [address] [place] [address] [place] Erythrocyte distribution width (RBC) [Ratio] 12.4 % Normal 11.5-15.0 [facility] Comment on above: Order Comment: Speci men Type: BLOOD SPECIMEN Ordering Facility: [facility] Address: [address] [place] [address] Performed By: #### 5 7021-8 #### [facility] CLIA [id number] [address] [place] [address] [place] Hematocrit (Bld) [Volume fraction] 39.0 % Normal 39.0-51.0 [facility] Comment on above: Order Comment: Speci men Type: BLOOD SPECIMEN Ordering Facility: [facility] Address: [address] [place] [address] Performed By: #### 5 7021-8 #### [facility] CLIA [id number] [address] [place] [address] [place] Hemoglobin (Bld) [Mass/Vol] 13.5 g/dL Normal 13.0-17.0 [facility] Comment on above: Order Comment: Speci men Type: BLOOD SPECIMEN Ordering Facility: [facility] Address: [address] [place] [address] Performed By: #### 5 7021-8 #### [facility] CLIA [id number] [address] [place] [address] [place] Immature granulocytes (Bld) [#/Vol] 0.10 10*3/uL High <0.10 [facility] Comment on above: Order Comment: Speci men Type: BLOOD SPECIMEN Ordering Facility: [facility] Address: [address] [place] [address] Performed By: #### 5 7021-8 #### [facility] CLIA [id number] [address] [place] [address] [place] Immature granulocytes/100 WBC (Bld) 1.0 % Normal [facility] Comment on above: Order Comment: Speci men Type: BLOOD SPECIMEN Ordering Facility: [facility] Address: [address] [place] [address] Performed By: #### 5 7021-8 #### [facility] CLIA [id number] [address] [place] [address] [place] Lymphocytes (Bld) [#/Vol] 2.60 10*3/uL Normal 1.00-4.00 [facility] Comment on above: Order Comment: Speci men Type: BLOOD SPECIMEN Ordering Facility: [facility] Address: [address] [place] [address] Performed By: #### 5 7021-8 #### [facility] CLIA [id number] [address] [place] [address] [place] Lymphocytes/100 WBC (Bld) 25.2 % Normal [facility] Comment on above: Order Comment: Speci men Type: BLOOD SPECIMEN Ordering Facility: [facility] Address: [address] [place] [address] Performed By: #### 5 7021-8 #### [facility] CLIA [id number] [address] [place] [address] [place] MCH (RBC) [Entitic mass] 32.0 pg Normal 26.0-34.0 [facility] Comment on above: Order Comment: Speci men Type: BLOOD SPECIMEN Ordering Facility: [facility] Address: [address] [place] [address] Performed By: #### 5 7021-8 #### [facility] CLIA [id number] [address] [place] [address] [place] MCHC (RBC) [Mass/Vol] 34.6 g/dL Normal 30.5-36.0 [facility] Comment on above: Order Comment: Speci men Type: BLOOD SPECIMEN Ordering Facility: [facility] Address: [address] [place] [address] Performed By: #### 5 7021-8 #### [facility] CLIA [id number] [address] [place] [address] [place] MCV (RBC) [Entitic vol] 92.4 fL Normal 80.0-100.0 [facility] Comment on above: Order Comment: Speci men Type: BLOOD SPECIMEN Ordering Facility: [facility] Address: [address] [place] [address] Performed By: #### 5 7021-8 #### [facility] CLIA [id number] [address] [place] [address] [place] Monocytes (Bld) [#/Vol] 0.46 10*3/uL Normal <0.87 [facility] Comment on above: Order Comment: Speci men Type: BLOOD SPECIMEN Ordering Facility: [facility] Address: [address] [place] [address] Performed By: #### 5 7021-8 #### [facility] CLIA [id number] [address] [place] [address] [place] Monocytes/100 WBC (Bld) 4.5 % Normal [facility] Comment on above: Order Comment: Speci men Type: BLOOD SPECIMEN Ordering Facility: [facility] Address: [address] [place] [address] Performed By: #### 5 7021-8 #### [facility] CLIA [id number] [address] [place] [address] [place] Neutrophils (Bld) [#/Vol] 7.09 10*3/uL Normal 1.45-7.50 [facility] Comment on above: Order Comment: Speci men Type: BLOOD SPECIMEN Ordering Facility: [facility] Address: [address] [place] [address] Performed By: #### 5 7021-8 #### [facility] CLIA [id number] [address] [place] [address] [place] Neutrophils/100 WBC (Bld) 68.5 % Normal [facility] Comment on above: Order Comment: Speci men Type: BLOOD SPECIMEN Ordering Facility: [facility] Address: [address] [place] [address] Performed By: #### 5 7021-8 #### [facility] CLIA [id number] [address] [place] [address] [place] Nucleated RBC (Bld) [#/Vol] 10*3/uL Normal <0.01 [facility] Comment on above: Order Comment: Speci men Type: BLOOD SPECIMEN Ordering Facility: [facility] Address: [address] [place] [address] Performed By: #### 5 7021-8 #### [facility] CLIA [id number] [address] [place] [address] [place] Nucleated RBC/100 WBC (Bld) [Ratio] 0.0 /[address] [facility] Comment on above: Order Comment: Speci men Type: BLOOD SPECIMEN Ordering Facility: [facility] Address: [address] [place] [address] Performed By: #### 5 7021-8 #### [facility] CLIA [id number] [address] [place] [address] [place] Platelet mean volume (Bld) [Entitic vol] 8.7 fL Low 9.0-12.7 [facility] Comment on above: Order Comment: Speci men Type: BLOOD SPECIMEN Ordering Facility: [facility] Address: [address] [place] [address] Performed By: #### 5 7021-8 #### [facility] CLIA [id number] [address] [place] [address] [place] Platelets (Bld) [#/Vol] 153 10*3/uL Normal 150-400 [facility] Comment on above: Order Comment: Speci men Type: BLOOD SPECIMEN Ordering Facility: [facility] Address: [address] [place] [address] Performed By: #### 5 7021-8 #### [facility] CLIA [id number] [address] [place] [address] [place] RBC (Bld) [#/Vol] 4.22 10*6/uL Normal 4.20-6.00 [facility] Comment on above: Order Comment: Speci men Type: BLOOD SPECIMEN Ordering Facility: [facility] Address: [address] [place] [address] Performed By: #### 5 7021-8 #### [facility] CLIA [id number] [address] [place] [address] [place] WBC (Bld) [#/Vol] 10.33 10*3/uL Normal 3.70-11.00 [facility] Comment on above: Order Comment: Speci men Type: BLOOD SPECIMEN Ordering Facility: [facility] Address: [address] [place] [address] Performed By: #### 5 7021-8 #### [facility] CLIA [id number] [address] [place] [address] [place] CT ABD/PEL W IVCONon 024 CT ABD/PEL W IVCON * * *Final Report* * * DATE OF EXAM: Dec 25 2023 2:24PM [facility] 0530 - CT ABD/PEL W IVCON / PROCEDURE REASON: multiple diagnoses * * * * Physician Interpretation * * * * EXAMINATION: CT ABDOMEN AND PELVIS WITH IV CONTRAST CLINICAL HISTORY: Abdominal pain TECHNIQUE: CT of the abdomen and pelvis was performed using standard technique, scanning from just above the dome of the diaphragm to the symphysis pubis. MQ: CTAP_3 Contrast: IV: 100 ml of Omnipaque 350 Oral: 12 ml of Omni 240 10-25ml diluted with water CT Radiation dose: Integrated Dose-length product (DLP) for this visit = 495 mGy*cm. CT Dose Reduction Employed: Automated exposure control(AEC) and iterative recon COMPARISON: None. RESULT: Liver: The liver demonstrates a nodular contour. There are a few small subcentimeter hypodensities in the liver which are too small to characterize. Otherwise, the liver appears unremarkable. Biliary: No bile duct dilation. The gallbladder is not visualized. Spleen: No mass. No splenomegaly. Pancreas: No mass or duct dilation. Adrenals: No mass. Kidneys: No hydronephrosis or ureteral stones are identified. A few small nonobstructive 1 mm renal calculi are noted in the upper pole the right kidney. Small left renal lesions are noted suggestive of cysts. GI tract: No dilation or wall thickening. The appendix appears normal. Lymph nodes: No abdominal or pelvic lymphadenopathy. Mesentery/Peritoneum: No ascites or mass. Retroperitoneum: No mass. Vasculature: - Abdominal aorta and iliac arteries: Atherosclerotic calcifications without aneurysm. - Celiac and SMA: Patent without stenosis. - Portal venous system (SMV, splenic vein, portal vein and branches): Patent. - Hepatic veins: Patent. Pelvis: No mass, ascites or fluid collection. Bones/Soft Tissues: No acute osseous abnormalities are identified. Degenerative changes are noted in the thoracic and lumbar spine. Convex leftward lumbar scoliosis is noted. Postsurgical changes/laminectomies from L2 through L5 S1. Multiple old rib fractures are noted bilaterally. Lower thorax: Unremarkable. Poultry Hatchery Man (topogram) images: IMPRESSION: 1. No acute findings are identified. 2. Cirrhotic morphology. 3. Right nephrolithiasis. No hydronephrosis. Senior Manufacturing Test Engineer: HAJA Transcribe Date/Time: Dec 25 2023 2:29P Dictated by : OKSANA KLINE MD This examination was interpreted and the report reviewed and electronically signed by: OKSANA KLINE MD on Dec 25 2023 2:39PM EST [id number] Normal [facility] Ceruloplasmin SerPl-mCncon 0 12-25-2023 Ceruloplasmin [Mass/Vol] 21 mg/dL Normal 15-30 [facility] Comment on above: Order Comment: Speci men Type: BLOOD SPECIMEN Ordering Facility: [facility] Address: [address] [place] [address] Performed By: #### 2 276-4, 2064-4, 1825-9, 3040-3 #### [facility] CLIA [id number] [address] [place] [address] [facility] Comprehensive metabolic 2000 panelon 12-25-2023 Albumin [Mass/Vol] 4.3 g/dL Normal 3.9-4.[address] [facility] Comment on above: Order Comment: Speci men Type: BLOOD SPECIMEN Ordering Facility: [facility] Address: [address] [place] [address] Performed By: #### 2 4323-8, 00647-6 #### [facility] CLIA [id number] [address] [place] [address] [place] ALP [Catalytic activity/Vol] 69 U/L Normal 38-113 [facility] Comment on above: Order Comment: Speci men Type: BLOOD SPECIMEN Ordering Facility: [facility] Address: [address] [place] [address] Performed By: #### 2 4323-8, 01100-9 #### [facility] CLIA [id number] [address] [place] [address] [place] ALT [Catalytic activity/Vol] 15 U/L Normal 10-54 [facility] Comment on above: Order Comment: Speci men Type: BLOOD SPECIMEN Ordering Facility: [facility] Address: [address] [place] [address], [place] [address] Performed By: #### 2 432-8, #### [facility] CLIA [id number] [address] [place] [address] [place] Anion gap [Moles/Vol] 12 mmol/L Normal 9-18 [facility] Comment on above: Order Comment: Speci men Type: BLOOD SPECIMEN Ordering Facility: [facility] Address: [address] [place] [address] Performed By: #### 2 432-8, #### [facility] CLIA [id number] [address] [place] [address] [place] AST [Catalytic activity/Vol] 16 U/L Normal 14-40 [facility] Comment on above: Order Comment: Speci men Type: BLOOD SPECIMEN Ordering Facility: [facility] Address: [address] [place] [address] Performed By: #### 2 8, #### [facility] CLIA [id number] [address] [place] [address] [place] Bilirubin [Mass/Vol] 0.6 mg/dL Normal 0.2-1.3 [facility] Comment on above: Order Comment: Speci men Type: BLOOD SPECIMEN Ordering Facility: [facility] Address: [facility] [place] [address] Performed By: #### 2 4323-05, #### [facility] CLIA [id number] [address] [place] [address] [place] Calcium [Mass/Vol] 9.6 mg/dL Normal 8.5-10.[address] [facility] Comment on above: Order Comment: Speci men Type: BLOOD SPECIMEN Ordering Facility: [facility] Address: [address] [place] [address] Performed By: #### 2 4322-8, #### [facility] CLIA [id number] [address] [place] [address] [place] Chloride [Moles/Vol] 95 mmol/L Low 97-105 [facility] Comment on above: Order Comment: Speci men Type: BLOOD SPECIMEN Ordering Facility: [facility] Address: [address] [place] [address] Performed By: #### 2 4323-8, 93204-2 #### [facility] CLIA [id number] [address] [place] [address] [place] CO2 [Moles/Vol] 23 mmol/L Normal 22-30 [facility] Comment on above: Order Comment: Speci men Type: BLOOD SPECIMEN Ordering Facility: [facility] Address: [address] [place] [address] Performed By: #### 2 4323-8, 03478-4 #### [facility] CLIA [id number] [address] [place] [address] [place] Creatinine [Mass/Vol] 0.78 mg/dL Normal 0.73-1.22 [facility] Comment on above: Order Comment: Speci men Type: BLOOD SPECIMEN Ordering Facility: [facility] Address: [address] [place] [address] Performed By: #### 2 4323-8, 17773-1 #### [facility] CLIA [id number] [address] [place] [address] [place] Creatinine and Glomerular filtration rate.predicted panel (S/P/Bld) 100 mL/min/1.73m??? Normal >=60 [facility] Comment on above: Order Comment: Speci men Type: BLOOD SPECIMEN Ordering Facility: [facility] Address: [address] [place] [address] Result Comment: Brie mated Glomerular Filtration Rate (eGFR) is calculated using the 2020 CKD-EPI creatinine equation. This equation utilizes serum creatinine, sex, and age as parameters. The creatinine assay has traceable calibration to isotope dilution-mass spectrometry. Refer to KDIGO guidelines for clinical interpretation. In patients with unstable renal function, e.g. those with acute kidney injury, the eGFR may not accurately reflect actual GFR. Performed By: #### 2 43212-24, #### [facility] CLIA [id number] [address] [place] [address] [place] Glucose [Mass/Vol] 108 mg/dL High 74-[address] [facility] Comment on above: Order Comment: Kel garcia Type: BLOOD SPECIMEN Ordering Facility: [facility] Address: [address] [place] [address] Result Comment: The [place] Diabetes Association (ADA) provides guidance for cutoff values for fasting glucose and random glucose. The ADA defines fasting as no caloric intake for at least 8 hours. Fasting plasma glucose results between 100 to 125 mg/dL indicate increased risk for diabetes (prediabetes). Fasting plasma glucose results greater than or equal to 126 mg/dL meet the criteria for diagnosis of diabetes. In the absence of unequivocal hyperglycemia, results should be confirmed by repeat testing. In a patient with classic symptoms of hyperglycemia or hyperglycemic crisis, random plasma glucose results greater than or equal to 200 mg/dL meet the criteria for diagnosis of diabetes. Reference: Standards of Medical Care in Diabetes 2016, [place] [employer] Association. Diabetes Care. 2016.39(Suppl 1). Performed By: #### 2 43212-24, #### [facility] CLIA [id number] [address] [place] [address] [place] Potassium [Moles/Vol] 3.5 mmol/L Low 3.7-5.1 [facility] Comment on above: Order Comment: Kel garcia Type: BLOOD SPECIMEN Ordering Facility: [facility] Address: [address] [place] [address] Performed By: #### 2 43212-24, #### [facility] CLIA [id number] [address] [place] [address] [place] Protein [Mass/Vol] 7.3 g/dL Normal 6.3-8.[address] [facility] Comment on above: Order Comment: Speci men Type: BLOOD SPECIMEN Ordering Facility: [facility] Address: [address] [place] [address] Performed By: #### 2 4323-8, #### [id number] [address] [place] [address] [place] Sodium [Moles/Vol] 130 mmol/L Low 136-[address] [facility] Comment on above: Order Comment: Speci men Type: BLOOD SPECIMEN Ordering Facility: [facility] Address: [address] [place] [address] Performed By: #### 2 4323-8, #### [facility] [id number] [address] [place] [address] [place] Urea nitrogen [Mass/Vol] 11 mg/dL Normal 9-24 [facility] Comment on above: Order Comment: Speci men Type: BLOOD SPECIMEN Ordering Facility: [facility] Address: [address] [place] [address] Performed By: #### 2 4323-8, #### [facility] [id number] [address] [place] [address] [place] Ferritin SerPl-mCncon 2023 Ferritin [Mass/Vol] 295.0 ng/mL Normal 30.3-565.7 [facility] Comment on above: Order Comment: Speci men Type: BLOOD SPECIMEN Ordering Facility: [facility] Address: [address] [place] [address] Performed By: #### 2 276-4, 2064-4, 1825-9, 3040-3 #### [facility] CLIA [id number] [address] [facility] [id number] [address] [place] Lipase SerPl-cCncon 12-25-19 24 Lipase [Catalytic activity/Vol] 39 U/L Normal 16-61 [facility] Comment on above: Order Comment: Speci men Type: BLOOD SPECIMEN Ordering Facility: [facility] Address: [address] [place] [address] Performed By: #### 2 276-4, 2064-4, 1825-9, 3040-3 #### [facility] CLIA [id number] [address] [place] [address] [place] Magnesium SerPl-mCncon 12-24 Magnesium [Mass/Vol] 1.8 mg/dL Normal 1.7-2.3 [facility] Comment on above: Order Comment: Speci men Type: BLOOD SPECIMEN Ordering Facility: [facility] Address: [address] [place] [address] Performed By: #### 2 4323-8, 90876-4 #### [facility] CLIA [id number] [address] [place] [address] [place] Mitochondria Ab IF Ql (S)on 12-25-2023 Mitochondria M2 Ab IA Qn (S) 1.6 Units Normal <=20.0 [facility] Comment on above: Order Comment: Speci men Type: BLOOD SPECIMEN Ordering Facility: [facility] Address: [address] [place] [address] Performed By: #### 1 4252-1, JAN, 93504-9 #### [facility] CLIA [id number] [address] [place] [address] [place] Mitochondria M2 Ab Ql (S) Negative Normal Negative [facility] Comment on above: Order Comment: Speci men Type: BLOOD SPECIMEN Ordering Facility: [facility] Address: [address] [place] [address] Result Comment: Anti -mitochondrial antibody test is used as an aid in diagnosis of primary biliary cholangitis. Clinical correlation is required. Performed By: #### 1 4252-1, JAN, 48370-2 #### [facility] CLIA [id number] [address] [place] [address] [place] PT panel Coag (PPP)on 2023 INR Coag (PPP) [Relative time] 1.0 {INR} Normal 0.9-1.3 [facility] Comment on above: Order Comment: Kel garcia Type: BLOOD SPECIMEN Ordering Facility: [facility] Address: [facility], [place] [address] Result Comment: Celine min K Antagonist (VKA) Therapeutic Range: INR 2 to 3 (Target INR of 2.5) Note: For patients treated with VKA drugs, such as warfarin, the [place] [employer] 2012 Guideline recommends a therapeutic INR range of 2 to 3 (target INR of 2.5). This recommendation includes high-risk patients with antiphospholipid syndrome with previous arterial or venous thromboembolism, current-generation mechanical or bioprosthetic aortic heart valve replacement. Note: Patients with mechanical aortic valve replacement and additional risk factors for thromboembolic events (atrial fibrillation, previous thromboembolism, LV dysfunction, hypercoagulable conditions) or an older generation mechanical AVR (i.e., ball in-Cage) or any mechanical MVR should have a INR therapeutic range of 2.5 to 3.5 (target INR of 3). Beltran GH, et al. Chest 2012, 141:7S-47S Vandana RA, et al. [facility] 2017, 70: 252-289 Performed By: #### P LATF4 #### [facility] CLIA [id number] [address] [place] [address] [place] PT Coag (PPP) [Time] 10.2 s Normal <13.1 [facility] Comment on above: Order Comment: Kel garcia Type: BLOOD SPECIMEN Ordering Facility: [facility] Address: [facility], [place] [address] Performed By: #### P LATF4 #### [facility] CLIA [id number] [address] [place] [address] [place] Smooth muscle Ab Ql (S)on ACTIN SMOOTH MUSCLE IGG QUALITATIVE Negative Normal Negative [facility] Comment on above: Order Comment: Kel garcia Type: BLOOD SPECIMEN Ordering Facility: [facility] Address: [address] [place] [address] Performed By: #### 1 4252-1, JAN, 26338-5 #### [facility] CLIA [id number] [address] [place] [address] [place] ACTIN SMOOTH MUSCLE IGG QUANTITATIVE 13 Units Normal <20 [facility] Comment on above: Order Comment: Speci men Type: BLOOD SPECIMEN Ordering Facility: [facility] Address: [address] [place] [address] Performed By: #### 1 4252-1, JAN, 12383-0 #### [facility] CLIA [id number] [address] [place] [address] [place] CNOVon 12-24-2023 CNOV Office Visit ([facility] ) ----- JORJEWOODY ([id number]) 1960 M T Date Time Provider Department 12/24/23 10:30 AM MUNIRA STALEY [facility] During your visit today, we recorded the following information about you: Pulse Blood pressure Weight Height 110/minute 120/72 78.9 kg 1.778 m Munira Staley PA-C 12/24/2023 12:52 PM Signed CHIEF COMPLAINT: Patient presents with: Hospital F/U: ER 10/20/23 HPI Accompanied by significant other Kingsley Ni is a 63 year old male with PMHx positive for DM, HTN, HLD here today for Hospital F/U (ER 10/20/23). Seen last in 2021 for h/o Hep C, cirrhosis, EtOH abuse. Pt performed labs, got recommended EGD through [facility]. Recently admitted at [facility] 10/2023 due to alcohol induced pancreatitis, wanting to quit EtOH. Hospital course reviewed and copied/pasted below. No imaging performed. Following with [facility] addition medicine program to d/c alcohol. Currently drinking 12-18 beers per day. Admits to generalized abdominal pain, 10/10, increased acid indigestion on a regular basis, intermittent episodes of emesis daily. No longer taking previously prescribed Protonix. Bms are multiple per day, loose to watery, no blood/black coloring. Weight has been fluctuating at about 10 lbs. Low grade fevers at home. [facility] Admission 10/2023 HOSPITAL COURSE: Woody Ni is a 63 y.o. male who presents to the emergency department with chief complaint of nausea and vomiting associated with upper abdominal pain. Patient has had nausea and vomiting for the past few days. The only thing he is drinking his alcohol. He has history of alcohol abuse. He has history of cirrhosis. He states he would like to quit drinking. Complains of persistent nausea and vomiting. Complains of upper abdominal discomfort. Denies chest pain or shortness of breath. States he received a phone call last week on outpatient laboratory studies done by his doctor that were abnormal but he does not know what the abnormal labs were. In the ER he was diagnosed with acute pancreatitis , his lipase was elevated he is being admitted for management and treatment . He was treated with iv fluids and pain meds. Addiction med saw him for etoh withdrawal and he was on phenobarbital. I had palliative see him as well because he was talking about just wanting to . He did speak with them but remains full code. His labs had improved he was eating a regular diet and he is being discharged to [facility] 2021 OV 2021 Woody Ni is a 62 year old male who presents for Nausea AND Vomiting (Gas, stomach upset). Has h/o Hep C, cirrhosis, pt states this never required treatment. Currently drinking four beers a day, has been drinking this for years. Takes Lasix 20 mg PRN Has been on protonix for years, no emesis for the past two weeks. Bms are solely diarrhea never formed for the past 2 mos, no blood. Lost 40 lbs unintentionally in the past four mos. Denies abd pain, fevers, current emesis/nausea. CT abd 04/2022 nonobstructing right sided kidney stone, mural stomach thickening Current Outpatient Medications Medication Sig LIDOCAINE VISCOUS 2 % solution PROAIR HFA 90 mcg/actuation inhaler INHALE TWO PUFFS BY MOUTH FOUR TIMES DAILY ketoconazole (NIZORAL) 2 % shampoo pantoprazole DR (PROTONIX) 40 mg tablet albuterol (PROVENTIL) 2.5 mg /3 mL (0.083 %) nebulizer solution Use 2.5 mg via nebulizer as needed. alendronate (FOSAMAX) 70 mg tablet Take 70 mg by mouth once each week. amLODIPine (NORVASC) 2.5 mg tablet Take 2.5 mg by mouth once daily. TRUE METRIX GLUCOSE TEST STRIP test strip clotrimazole-betamethason e (LOTRISONE) cream COLCRYS 0.6 mg tablet Take 0.6 mg by mouth three times daily. fluticasone (FLONASE) 50 mcg/actuation nasal spray Use 1 [place] in the nose once daily as needed. furosemide (LASIX) 20 mg tablet Take 20 mg by mouth once daily as needed. ipratropium (ATROVENT) 0.02 % nebulizer solution TRUEPLUS LANCETS 30 gauge misc levothyroxine (SYNTHROID) 100 mcg tablet Take 100 mcg by mouth once daily. metFORMIN (GLUCOPHAGE) 500 mg tablet Take 1,000 mg by mouth daily with breakfast. ondansetron (ZOFRAN) 4 mg tablet Take 4 mg by mouth as needed. oxyCODONE IR (ROXICODONE) 10 mg tab Take 10 mg by mouth four times daily. potassium chloride SR (MICRO-K) 10 mEq CR capsule Take 10 mEq by mouth once daily. pravastatin (PRAVACHOL) 40 mg tablet Take 40 mg by mouth once daily. No current facility-administered medications for this visit. ALLERGIES Allergen Reactions Allopurinol Other: See Comments Breaks out in blisters Penicillin Swelling Social History Tobacco Use Smoking status: Former Types: Cigars Smokeless tobacco: Never Vaping Use Vaping Use: Never used Substance Use Topics Alcohol use: No Comment: Quit drinking Drug use: No PAST MEDICAL HISTORY Diagnosis Date Anemia, iron deficiency (more content not included)... Normal [facility] CBC panel Auto (Bld)on 10-27 Erythrocyte distribution width (RBC) [Ratio] 13.8 % 11.5 - 14.5 % [facility] Hematocrit (Bld) [Volume fraction] 32.1 % Low 40.0 - 52.0 % [facility] Hemoglobin (Bld) [Mass/Vol] 10.8 g/dL Low 13.0 - 18.0 g/dL [facility] Interpretation and review of laboratory results Abnormal [facility] MCH (RBC) [Entitic mass] 34.0 pg 26.0 - 34.0 pg [facility] MCHC (RBC) [Mass/Vol] 33.7 % 32.0 - 36.0 % [facility] MCV (RBC) [Entitic vol] 100.9 fL High 80.0 - 98.0 fL [facility] Platelet mean volume (Bld) [Entitic vol] 8.2 fL 7.4 - 12.4 fL [facility] Platelets (Bld) [#/Vol] 76 10*3/uL Low 140 - 440 10*3/uL [facility] RBC (Bld) [#/Vol] 3.18 10*6/uL Low 4.40 - 5.9 0 10*6/uL [facility] WBC (Bld) [#/Vol] 3.3 10*3/uL Low 3.6 - 10.7 10*3/uL [facility] Comprehensive metabolic 1998 panelon 10-27-2023 Albumin [Mass/Vol] 3.5 g/dL 3.5 - 5.0 g/dL [facility] ALP [Catalytic activity/Vol] 70 U/L 38 - 126 U/L [facility] ALT [Catalytic activity/Vol] 50 U/L High 0 - 49 U/L [facility] Anion gap [Moles/Vol] 10 mmol/L 3 - 13 mmol/L [facility] AST [Catalytic activity/Vol] 63 U/L High 15 - 46 U/L [facility] Bilirubin [Mass/Vol] 0.6 mg/dL 0.2 - 1 .3 mg/dL [facility] Calcium [Mass/Vol] 9.1 mg/dL 8.4 - 10. 4 mg/dL [facility] Chloride [Moles/Vol] 100 mmol/L 98 - 10 7 mmol/L [facility] CO2 [Moles/Vol] 24 mmol/L 22 - 30 mmol/L [facility] Creatinine [Mass/Vol] 0.66 mg/dL 0.66 - 1.25 mg/dL [facility] GFR/1.73 sq M.predicted MDRD (S/P/Bld) [Vol rate/Area] - PINF [facility] Comment on above: Calculation based on the Chronic Kidney Disease Epidemiology Collaboration (CKD-EPI) equation refit without adjustment for race Glucose [Mass/Vol] 111 mg/dL High 70 - 100 mg/dL [facility] Potassium [Moles/Vol] 3.6 mmol/L 3.5 - 5.1 mmol/L [facility] Protein [Mass/Vol] 6.5 g/dL 6.3 - 8.2 g/dL [facility] Sodium [Moles/Vol] 134 mmol/L Low 135 - 145 mmol/L [facility] Urea nitrogen [Mass/Vol] 11 mg/dL 9 - 20 mg/dL [facility] Lipaseon 10-27-2023 Lipase [Catalytic activity/Vol] 309 U/L High 23 - 300 U/L [facility] No Panel Informationon 10-27 Interpretation and review of laboratory results Abnormal [facility] CBC panel Auto (Bld)on 10-26 Erythrocyte distribution width (RBC) [Ratio] 13.3 % 11.5 - 14.5 % [facility] Hematocrit (Bld) [Volume fraction] 30.3 % Low 40.0 - 52.0 % [facility] Hemoglobin (Bld) [Mass/Vol] 10.2 g/dL Low 13.0 - 18.0 g/dL [facility] Interpretation and review of laboratory results Abnormal [facility] MCH (RBC) [Entitic mass] 33.8 pg 26.0 - 34.0 pg [facility] MCHC (RBC) [Mass/Vol] 33.7 % 32.0 - 36.0 % [facility] MCV (RBC) [Entitic vol] 100.2 fL High 80.0 - 98.0 fL [facility] Platelet mean volume (Bld) [Entitic vol] 8.6 fL 7.4 - 12.4 fL [facility] Platelets (Bld) [#/Vol] 52 10*3/uL Low 140 - 440 10*3/uL [facility] RBC (Bld) [#/Vol] 3.02 10*6/uL Low 4.40 - 5.9 0 10*6/uL [facility] WBC (Bld) [#/Vol] 3.7 10*3/uL 3.6 - 10.7 10*3/uL [facility] Comprehensive metabolic 1998 panelon 10-26-2023 Albumin [Mass/Vol] 3.2 g/dL Low 3.5 - 5.0 g/dL [facility] ALP [Catalytic activity/Vol] 67 U/L 38 - 126 U/L [facility] ALT [Catalytic activity/Vol] 46 U/L 0 - 49 U/L [facility] Anion gap [Moles/Vol] 5 mmol/L 3 - 13 mmol/L [facility] AST [Catalytic activity/Vol] 61 U/L High 15 - 46 U/L [facility] Bilirubin [Mass/Vol] 0.6 mg/dL 0.2 - 1 .3 mg/dL [facility] Calcium [Mass/Vol] 8.8 mg/dL 8.4 - 10. 4 mg/dL [facility] Chloride [Moles/Vol] 100 mmol/L 98 - 10 7 mmol/L [facility] CO2 [Moles/Vol] 24 mmol/L 22 - 30 mmol/L [facility] Creatinine [Mass/Vol] 0.60 mg/dL Low 0.66 - 1.25 mg/dL [facility] GFR/1.73 sq M.predicted MDRD (S/P/Bld) [Vol rate/Area] - PINF [facility] Comment on above: Calculation based on the Chronic Kidney Disease Epidemiology Collaboration (CKD-EPI) equation refit without adjustment for race Glucose [Mass/Vol] 104 mg/dL High 70 - 100 mg/dL [facility] Potassium [Moles/Vol] 4.1 mmol/L 3.5 - 5.1 mmol/L [facility] Protein [Mass/Vol] 6.1 g/dL Low 6.3 - 8.2 g/dL [facility] Sodium [Moles/Vol] 130 mmol/L Low 135 - 145 mmol/L [facility] Urea nitrogen [Mass/Vol] 9 mg/dL 9 - 20 mg/dL [facility] Heparin-induced platelet ant ibodyOrdered By: Anastacia Stevenson on 10-26-2023 INTERPRETATION (PF4) Negative Negative [facility] PLATELET AB, HEPARIN 0.138 NINF [facility] No anti-platelet fac tor 4 IgG antibody is detected by JORDI assay. Heparin-induced thrombocytopenia (HIT) is unlikely, but should be excluded based on clinical factors. [facility] Lipaseon 10-26-2023 Lipase [Catalytic activity/Vol] 314 U/L High 23 - 300 U/L [facility] Magnesiumon 10-26-2023 Magnesium [Mass/Vol] 1.5 mg/dL Low 1.6 - 2 .3 mg/dL [facility] Magnesium [Mass/Vol]on 10-26 Interpretation and review of laboratory results Abnormal [facility] No Panel Informationon 10-26 Interpretation and review of laboratory results Abnormal [facility] CBC panel Auto (Bld)on 10-25 Erythrocyte distribution width (RBC) [Ratio] 13.2 % 11.5 - 14.5 % [facility] Hematocrit (Bld) [Volume fraction] 28.2 % Low 40.0 - 52.0 % [facility] Hemoglobin (Bld) [Mass/Vol] 9.8 g/dL Low 13.0 - 18.0 g/dL [facility] Interpretation and review of laboratory results Abnormal [facility] MCH (RBC) [Entitic mass] 34.4 pg High 26.0 - 34.0 pg [facility] MCHC (RBC) [Mass/Vol] 34.6 % 32.0 - 36.0 % [facility] MCV (RBC) [Entitic vol] 99.3 fL High 80.0 - 98.0 fL [facility] Platelet mean volume (Bld) [Entitic vol] 7.6 fL 7.4 - 12.4 fL [facility] Platelets (Bld) [#/Vol] 40 10*3/uL Low 140 - 440 10*3/uL [facility] RBC (Bld) [#/Vol] 2.84 10*6/uL Low 4.40 - 5.9 0 10*6/uL [facility] WBC (Bld) [#/Vol] 3.3 10*3/uL Low 3.6 - 10.7 10*3/uL [facility] Comprehensive metabolic 1998 panelon 10-25-2023 Albumin [Mass/Vol] 3.1 g/dL Low 3.5 - 5.0 g/dL [facility] ALP [Catalytic activity/Vol] 64 U/L 38 - 126 U/L [facility] ALT [Catalytic activity/Vol] 45 U/L 0 - 49 U/L [facility] Anion gap [Moles/Vol] 7 mmol/L 3 - 13 mmol/L [facility] AST [Catalytic activity/Vol] 69 U/L High 15 - 46 U/L [facility] Bilirubin [Mass/Vol] 0.7 mg/dL 0.2 - 1 .3 mg/dL [facility] Calcium [Mass/Vol] 8.4 mg/dL 8.4 - 10. 4 mg/dL [facility] Chloride [Moles/Vol] 103 mmol/L 98 - 10 7 mmol/L [facility] CO2 [Moles/Vol] 22 mmol/L 22 - 30 mmol/L [facility] Creatinine [Mass/Vol] 0.60 mg/dL Low 0.66 - 1.25 mg/dL [facility] GFR/1.73 sq M.predicted MDRD (S/P/Bld) [Vol rate/Area] - PINF [facility] Comment on above: Calculation based on the Chronic Kidney Disease Epidemiology Collaboration (CKD-EPI) equation refit without adjustment for race Glucose [Mass/Vol] 94 mg/dL 70 - 100 mg/dL [facility] Potassium [Moles/Vol] 4.0 mmol/L 3.5 - 5.1 mmol/L [facility] Protein [Mass/Vol] 5.9 g/dL Low 6.3 - 8.2 g/dL [facility] Sodium [Moles/Vol] 131 mmol/L Low 135 - 145 mmol/L [facility] Urea nitrogen [Mass/Vol] 7 mg/dL Low 9 - 20 mg/dL [facility] Lipaseon 10-25-2023 Lipase [Catalytic activity/Vol] 321 U/L High 23 - 300 U/L [facility] Magnesiumon 10-25-2023 Magnesium [Mass/Vol] 1.4 mg/dL Low 1.6 - 2 .3 mg/dL [facility] No Panel Informationon 10-25 Interpretation and review of laboratory results Abnormal [facility] CBC panel Auto (Bld)on 10-24 Erythrocyte distribution width (RBC) [Ratio] 13.2 % 11.5 - 14.5 % [facility] Hematocrit (Bld) [Volume fraction] 33.7 % Low 40.0 - 52.0 % [facility] Hemoglobin (Bld) [Mass/Vol] 11.4 g/dL Low 13.0 - 18.0 g/dL [facility] Interpretation and review of laboratory results Abnormal [facility] MCH (RBC) [Entitic mass] 34.0 pg 26.0 - 34.0 pg [facility] MCHC (RBC) [Mass/Vol] 33.8 % 32.0 - 36.0 % [facility] MCV (RBC) [Entitic vol] 100.7 fL High 80.0 - 98.0 fL [facility] Platelet mean volume (Bld) [Entitic vol] 7.8 fL 7.4 - 12.4 fL [facility] Platelets (Bld) [#/Vol] 37 10*3/uL Low 140 - 440 10*3/uL [facility] RBC (Bld) [#/Vol] 3.35 10*6/uL Low 4.40 - 5.9 0 10*6/uL [facility] WBC (Bld) [#/Vol] 3.0 10*3/uL Low 3.6 - 10.7 10*3/uL [facility] Comprehensive metabolic 1998 panelon 10-24-2023 Albumin [Mass/Vol] 3.8 g/dL 3.5 - 5.0 g/dL [facility] ALP [Catalytic activity/Vol] 84 U/L 38 - 126 U/L [facility] ALT [Catalytic activity/Vol] 65 U/L High 0 - 49 U/L [facility] Anion gap [Moles/Vol] 9 mmol/L 3 - 13 mmol/L [facility] AST [Catalytic activity/Vol] 112 U/L High 15 - 46 U/L [facility] Bilirubin [Mass/Vol] 1.7 mg/dL High 0.2 - 1 .3 mg/dL [facility] Calcium [Mass/Vol] 8.5 mg/dL 8.4 - 10. 4 mg/dL [facility] Chloride [Moles/Vol] 103 mmol/L 98 - 10 7 mmol/L [facility] CO2 [Moles/Vol] 19 mmol/L Low 22 - 30 mmol/L [facility] Creatinine [Mass/Vol] 0.59 mg/dL Low 0.66 - 1.25 mg/dL [facility] GFR/1.73 sq M.predicted MDRD (S/P/Bld) [Vol rate/Area] - PINF [facility] Comment on above: Calculation based on the Chronic Kidney Disease Epidemiology Collaboration (CKD-EPI) equation refit without adjustment for race Glucose [Mass/Vol] 89 mg/dL 70 - 100 mg/dL [facility] Interpretation and review of laboratory results Abnormal [facility] Potassium [Moles/Vol] 4.3 mmol/L 3.5 - 5.1 mmol/L [facility] Protein [Mass/Vol] 7.1 g/dL 6.3 - 8.2 g/dL [facility] Sodium [Moles/Vol] 131 mmol/L Low 135 - 145 mmol/L [facility] Urea nitrogen [Mass/Vol] 6 mg/dL Low 9 - 20 mg/dL [facility] Slightly Hemolyzed [facility] Lipaseon 10-24-2023 Lipase [Catalytic activity/Vol] 389 U/L High 23 - 300 U/L [facility] Lipase [Catalytic activity/V ol]on 10-24-2023 Interpretation and review of laboratory results Abnormal [facility] Magnesiumon 10-24-2023 Magnesium [Mass/Vol] 1.9 mg/dL 1.6 - 2 .3 mg/dL [facility] Magnesium [Mass/Vol]on 10-24 Interpretation and review of laboratory results Normal [facility] ANTI PLT FACTOR 4 ABon 10-23 Heparin induced platelet IgG Armani (S) [Interp] Negative Normal Negative [facility] Comment on above: Order Comment: Specadelaida garcia Type: BLOOD SPECIMEN Ordering Facility: [facility] Address: [place] [address] Result Comment: No a nti-platelet factor 4 IgG antibody is detected by JORDI assay. Heparin-induced thrombocytopenia (HIT) is unlikely, but should be excluded based on clinical factors. Performed By: #### P LATF4 #### [facility] CLIA [id number] [address] [place] [address] [place] Platelet factor 4 Qn (PPP) 0.138 OD Normal <0.400 [facility] Comment on above: Order Comment: Kel garcia Type: BLOOD SPECIMEN Ordering Facility: [facility] Address: [facility] [place] [address] Result Comment: Not calculated Performed By: #### P LATF4 #### [facility] CLIA [id number] [address] [place] [address] [place] CBC panel Auto (Bld)Ordered By: Daniel Allen on 10-23-2023 Erythrocyte distribution width (RBC) [Ratio] 13.3 % 11.5 - 14.5 % [facility] Hematocrit (Bld) [Volume fraction] 31.8 % Low 40.0 - 52.0 % [facility] Hemoglobin (Bld) [Mass/Vol] 11.0 g/dL Low 13.0 - 18.0 g/dL [facility] Interpretation and review of laboratory results Abnormal [facility] MCH (RBC) [Entitic mass] 34.0 pg 26.0 - 34.0 pg [facility] MCHC (RBC) [Mass/Vol] 34.5 % 32.0 - 36.0 % [facility] MCV (RBC) [Entitic vol] 98.7 fL High 80.0 - 98.0 fL [facility] Platelet mean volume (Bld) [Entitic vol] 8.2 fL 7.4 - 12.4 fL [facility] Platelets (Bld) [#/Vol] 38 10*3/uL Low 140 - 440 10*3/uL [facility] RBC (Bld) [#/Vol] 3.23 10*6/uL Low 4.40 - 5.9 0 10*6/uL [facility] WBC (Bld) [#/Vol] 4.3 10*3/uL 3.6 - 10.7 10*3/uL [facility] Cobalamin (Vitamin B12) [Mas s/Vol]on 10-23-2023 Interpretation and review of laboratory results Normal [facility] Comprehensive metabolic 1998 panelOrdered By: Montrell Charles on 10-23-2023 Albumin [Mass/Vol] 2.7 g/dL Low 3.5 - 5.0 g/dL [facility] ALP [Catalytic activity/Vol] 56 U/L 38 - 126 U/L [facility] ALT [Catalytic activity/Vol] 41 U/L 0 - 49 U/L [facility] Anion gap [Moles/Vol] 7 mmol/L 3 - 13 mmol/L [facility] AST [Catalytic activity/Vol] 86 U/L High 15 - 46 U/L [facility] Bilirubin [Mass/Vol] 1.7 mg/dL High 0.2 - 1 .3 mg/dL [facility] Calcium [Mass/Vol] 6.4 mg/dL Low 8.4 - 10. 4 mg/dL [facility] Chloride [Moles/Vol] 107 mmol/L 98 - 10 7 mmol/L [facility] CO2 [Moles/Vol] 18 mmol/L Low 22 - 30 mmol/L [facility] Creatinine [Mass/Vol] 0.47 mg/dL Low 0.66 - 1.25 mg/dL [facility] GFR/1.73 sq M.predicted MDRD (S/P/Bld) [Vol rate/Area] - PINF [facility] Comment on above: Calculation based on the Chronic Kidney Disease Epidemiology Collaboration (CKD-EPI) equation refit without adjustment for race Glucose [Mass/Vol] 90 mg/dL 70 - 100 mg/dL [facility] Interpretation and review of laboratory results Abnormal [facility] Potassium [Moles/Vol] 2.7 mmol/L Low 3.5 - 5.1 mmol/L [facility] Protein [Mass/Vol] 5.1 g/dL Low 6.3 - 8.2 g/dL [facility] Sodium [Moles/Vol] 132 mmol/L Low 135 - 145 mmol/L [facility] Urea nitrogen [Mass/Vol] 7 mg/dL Low 9 - 20 mg/dL [facility] Ferritinon 10-23-2023 Ferritin [Mass/Vol] 1190 ng/mL High 18 - 464 ng/mL [facility] Ferritin [Mass/Vol]on 2023 Interpretation and review of laboratory results Abnormal [facility] Folateon 10-23-2023 Folate [Mass/Vol] 15.8 ng/mL 2.9 - PINF ng/mL [facility] Folate [Mass/Vol]on 10-23-19 Interpretation and review of laboratory results Normal [facility] Haptoglobinon 10-23-2023 Haptoglobin [Mass/Vol] 161.5 mg/dL 30.0 - 200.0 mg/dL [facility] Interpretation and review of laboratory results Normal [facility] Iron and Iron binding capaci ty panelon 10-23-2023 Interpretation and review of laboratory results Abnormal [facility] Iron [Mass/Vol] 62 ug/dL 49 - 181 ug/dL [facility] Iron binding capacity [Mass/Vol] 201 ug/dL Low 261 - 497 ug/dL [facility] Iron saturation [Mass fraction] 31 % 15 - 50 % [facility] LDH Lactate to pyruvate reac tion [Catalytic activity/Vol]on 10-23-2023 Interpretation and review of laboratory results Normal [facility] Lactate dehydrogenaseon LDH Lactate to pyruvate reaction [Catalytic activity/Vol] 231 U/L 120 - 246 U/L [facility] Lipaseon 10-23-2023 Lipase [Catalytic activity/Vol] 446 U/L High 23 - 300 U/L [facility] Lipase [Catalytic activity/V ol]on 10-23-2023 Interpretation and review of laboratory results Abnormal [facility] Magnesiumon 10-23-2023 Magnesium [Mass/Vol] 0.8 mg/dL Critically low 1.6 - 2.3 mg/dL [facility] Magnesium [Mass/Vol]on 10-23 Interpretation and review of laboratory results Abnormal [facility] No Panel Informationon 10-23 [facility] Vitamin B12on 10-23-2023 Cobalamin (Vitamin B12) [Mass/Vol] 850 pg/mL 239 - 931 pg/mL [facility] CBC panel Auto (Bld)Ordered By: Sandy Nance on 10-22-2023 Erythrocyte distribution width (RBC) [Ratio] 13.2 % 11.5 - 14.5 % [facility] Hematocrit (Bld) [Volume fraction] 27.3 % Low 40.0 - 52.0 % [facility] Hemoglobin (Bld) [Mass/Vol] 9.1 g/dL Low 13.0 - 18.0 g/dL [facility] Interpretation and review of laboratory results Abnormal [facility] MCH (RBC) [Entitic mass] 33.6 pg 26.0 - 34.0 pg [facility] MCHC (RBC) [Mass/Vol] 33.4 % 32.0 - 36.0 % [facility] MCV (RBC) [Entitic vol] 100.6 fL High 80.0 - 98.0 fL [facility] Platelet mean volume (Bld) [Entitic vol] 7.8 fL 7.4 - 12.4 fL [facility] Platelets (Bld) [#/Vol] 36 10*3/uL Low 140 - 440 10*3/uL [facility] RBC (Bld) [#/Vol] 2.71 10*6/uL Low 4.40 - 5.9 0 10*6/uL [facility] WBC (Bld) [#/Vol] 2.0 10*3/uL Low 3.6 - 10.7 10*3/uL [facility] Comprehensive metabolic 1998 panelon 10-22-2023 Albumin [Mass/Vol] 3.8 g/dL 3.5 - 5.0 g/dL [facility] ALP [Catalytic activity/Vol] 84 U/L 38 - 126 U/L [facility] ALT [Catalytic activity/Vol] 63 U/L High 0 - 49 U/L [facility] Anion gap [Moles/Vol] 11 mmol/L 3 - 13 mmol/L [facility] AST [Catalytic activity/Vol] 153 U/L High 15 - 46 U/L [facility] Bilirubin [Mass/Vol] 3.1 mg/dL High 0.2 - 1 .3 mg/dL [facility] Calcium [Mass/Vol] 8.1 mg/dL Low 8.4 - 10. 4 mg/dL [facility] Chloride [Moles/Vol] 95 mmol/L Low 98 - 10 7 mmol/L [facility] CO2 [Moles/Vol] 23 mmol/L 22 - 30 mmol/L [facility] Creatinine [Mass/Vol] 0.59 mg/dL Low 0.66 - 1.25 mg/dL [facility] GFR/1.73 sq M.predicted MDRD (S/P/Bld) [Vol rate/Area] - PINF [facility] Comment on above: Calculation based on the Chronic Kidney Disease Epidemiology Collaboration (CKD-EPI) equation refit without adjustment for race Glucose [Mass/Vol] 121 mg/dL High 70 - 100 mg/dL [facility] Interpretation and review of laboratory results Abnormal [facility] Potassium [Moles/Vol] 3.2 mmol/L Low 3.5 - 5.1 mmol/L [facility] Protein [Mass/Vol] 7.0 g/dL 6.3 - 8.2 g/dL [facility] Sodium [Moles/Vol] 129 mmol/L Low 135 - 145 mmol/L [facility] Urea nitrogen [Mass/Vol] 5 mg/dL Low 9 - 20 mg/dL [facility] Iron and Iron binding capaci ty panelon 10-22-2023 Interpretation and review of laboratory results Abnormal [facility] Iron [Mass/Vol] 62 ug/dL 49 - 181 ug/dL [facility] Iron binding capacity [Mass/Vol] 202 ug/dL Low 261 - 497 ug/dL [facility] Iron saturation [Mass fraction] 31 % 15 - 50 % [facility] Specimen slightly hemolyzed, interpret results with caution [facility] CBC W Auto Differential pane l (Bld)Ordered By: Philip Medrano on 10-21-2023 Erythrocyte distribution width (RBC) [Ratio] 13.8 % 11.5 - 14.5 % [facility] Hematocrit (Bld) [Volume fraction] 34.9 % Low 40.0 - 52.0 % [facility] Hemoglobin (Bld) [Mass/Vol] 12.0 g/dL Low 13.0 - 18.0 g/dL [facility] Interpretation and review of laboratory results Abnormal [facility] MCH (RBC) [Entitic mass] 33.9 pg 26.0 - 34.0 pg [facility] MCHC (RBC) [Mass/Vol] 34.3 % 32.0 - 36.0 % [facility] MCV (RBC) [Entitic vol] 99.1 fL High 80.0 - 98.0 fL [facility] Nucleated RBC/100 WBC (Bld) [Ratio] 0.1 % [facility] Platelet mean volume (Bld) [Entitic vol] 6.6 fL Low 7.4 - 12.4 fL [facility] Platelets (Bld) [#/Vol] 51 10*3/uL Low 140 - 440 10*3/uL [facility] RBC (Bld) [#/Vol] 3.52 10*6/uL Low 4.40 - 5.9 0 10*6/uL [facility] WBC (Bld) [#/Vol] 4.6 10*3/uL 3.6 - 10.7 10*3/uL [facility] Lipaseon 10-21-2023 Lipase [Catalytic activity/Vol] 483 U/L High 23 - 300 U/L [facility] Lipase [Catalytic activity/V ol]on 10-21-2023 Interpretation and review of laboratory results Abnormal [facility] Manual differential performe d Ql (Bld)on 10-21-2023 Basophils (Bld) [#/Vol] 0.0 10*3/uL 0.0 - 0.2 10*3/uL [facility] Basophils Manual 1 [facility] Basophils/100 WBC (Bld) 1 % 0 - 2 % [facility] [employer] Cells Counted Total (Bld) [#] 100 {cells} [facility] [employer] Differential Method Automated differenti al reported after manual slide review [facility] [employer] Eosinophils (Bld) [#/Vol] 0.0 10*3/uL 0.0 - 0.5 10*3/uL [facility] Eosinophils Manual 1 0 - 1 [facility] Eosinophils/100 WBC (Bld) 1 % 1 - 6 % [facility] [employer] Leukocyte morphology finding Nom (Bld) Normal [facility] Lymphocytes (Bld) [#/Vol] 1.2 10*3/uL 1.0 - 4.3 10*3/uL [facility] Lymphocytes Manual 25 [facility] Lymphocytes/100 WBC (Bld) 25 % 20 - 40 % [facility] [employer] Monocytes (Bld) [#/Vol] 0.4 10*3/uL 0.0 - 0.8 10*3/uL [facility] [employer] Monocytes Manual 8 [facility] Monocytes/100 WBC (Bld) 8 % 2 - 10 % [facility] Neutrophils (Bld) [#/Vol] 3.0 10*3/uL 1.8 - 7.0 10*3/uL [facility] [employer] Neutrophils Manual 65 [facility] [employer] Platelet morphology finding Nom (Bld) Normal [facility] RBC morphology finding Nom (Bld) Normal [facility] Segmented neutrophils/100 WBC (Bld) 65 % 40 - 80 % [facility] WBC corrected for nucl RBC (Bld) [#/Vol] 4.6 10*3/uL 3.6 - 10.7 10*3/uL [facility] [employer] No Panel InformationOrdered By: Philip Medrano on 10-21-2023 [facility] [employer] Basic metabolic 1998 panelon 10-20-2023 Anion gap [Moles/Vol] 19 mmol/L High 3 - 13 mmol/L [facility] [employer] Calcium [Mass/Vol] 9.3 mg/dL 8.4 - 10. 4 mg/dL [facility] [employer] Chloride [Moles/Vol] 94 mmol/L Low 98 - 10 7 mmol/L [facility] [employer] CO2 [Moles/Vol] 19 mmol/L Low 22 - 30 mmol/L [facility] [employer] Creatinine [Mass/Vol] 0.71 mg/dL 0.66 - 1.25 mg/dL [facility] GFR/1.73 sq M.predicted MDRD (S/P/Bld) [Vol rate/Area] - PINF [facility] Comment on above: Calculation based on the Chronic Kidney Disease Epidemiology Collaboration (CKD-EPI) equation refit without adjustment for race Glucose [Mass/Vol] 92 mg/dL 70 - 100 mg/dL [facility] Potassium [Moles/Vol] 4.3 mmol/L 3.5 - 5.1 mmol/L [facility] Sodium [Moles/Vol] 133 mmol/L Low 135 - 145 mmol/L [facility] Urea nitrogen [Mass/Vol] 12 mg/dL 9 - 20 mg/dL [facility] CBC W Auto Differential pane l (Bld)Ordered By: Alen Beavers on 10-20-2023 Basophils (Bld) [#/Vol] 0.0 10*3/uL 0.0 - 0.2 10*3/uL [facility] Basophils/100 WBC (Bld) 0.9 % 0.0 - 2.0 % [facility] Eosinophils (Bld) [#/Vol] 0.0 10*3/uL 0.0 - 0.5 10*3/uL [facility] Eosinophils/100 WBC (Bld) 0.6 % Low 1.0 - 6.0 % [facility] Erythrocyte distribution width (RBC) [Ratio] 13.7 % 11.5 - 14.5 % [facility] Hematocrit (Bld) [Volume fraction] 38.3 % Low 40.0 - 52.0 % [facility] Hemoglobin (Bld) [Mass/Vol] 13.1 g/dL 13.0 - 18.0 g/dL [facility] Interpretation and review of laboratory results Abnormal [facility] Lymphocytes (Bld) [#/Vol] 1.7 10*3/uL 1.0 - 4.3 10*3/uL [facility] Lymphocytes/100 WBC (Bld) 32.5 % 20.0 - 40.0 % [facility] MCH (RBC) [Entitic mass] 33.5 pg 26.0 - 34.0 pg [facility] MCHC (RBC) [Mass/Vol] 34.1 % 32.0 - 36.0 % [facility] MCV (RBC) [Entitic vol] 98.2 fL High 80.0 - 98.0 fL [facility] Monocytes (Bld) [#/Vol] 0.4 10*3/uL 0.0 - 0.8 10*3/uL [facility] Monocytes/100 WBC (Bld) 6.8 % 2.0 - 10.0 % [facility] Neutrophils (Bld) [#/Vol] 3.1 10*3/uL 1.8 - 7.0 10*3/uL [facility] Neutrophils/100 WBC (Bld) 59.2 % 40.0 - 80.0 % [facility] Nucleated RBC/100 WBC (Bld) [Ratio] 0.2 % [facility] Platelet mean volume (Bld) [Entitic vol] 6.9 fL Low 7.4 - 12.4 fL [facility] Platelets (Bld) [#/Vol] 76 10*3/uL Low 140 - 440 10*3/uL [facility] RBC (Bld) [#/Vol] 3.90 10*6/uL Low 4.40 - 5.9 0 10*6/uL [facility] WBC (Bld) [#/Vol] 5.2 10*3/uL 3.6 - 10.7 10*3/uL [facility] COVID-19, Flu A/B, and RSV C [facility] 10-20-2023 FLUAV RNA SHANE+probe Ql (Resp) Not detected Not Detected [facility] FLUBV RNA SHANE+probe Ql (Resp) Not detected Not Detected [facility] Interpretation and review of laboratory results Normal [facility] RSV RNA SHANE+probe Ql (Resp) Not detected Not Detected [facility] SARS-CoV-2 (COVID-19) RNA SHANE+probe Ql (Resp) Not detected Not Detected [facility] SARS-CoV-2 (COVID-19) RNA SHANE+probe Ql (Unsp spec) Methodology: real-time, RT-PCR The SARS-CoV-2, Flu A/B, and RSV Combo assay is intended for in vitro diagnostic use under the FDA Emergency Use Authorization (EUA). This test has not been FDA cleared or approved. In compliance with this authorization, please visit www.fda.gov/media/979316/ download or www.fda.gov/media/614490/ download to access the applicable information sheets. [facility] Comprehensive metabolic 1998 panelon 10-20-2023 Albumin [Mass/Vol] 3.7 g/dL 3.5 - 5.0 g/dL [facility] ALP [Catalytic activity/Vol] 80 U/L 38 - 126 U/L [facility] ALT [Catalytic activity/Vol] 71 U/L High 0 - 49 U/L [facility] Anion gap [Moles/Vol] 16 mmol/L High 3 - 13 mmol/L [facility] AST [Catalytic activity/Vol] 207 U/L High 15 - 46 U/L [facility] Bilirubin [Mass/Vol] 1.2 mg/dL 0.2 - 1 .3 mg/dL [facility] Calcium [Mass/Vol] 8.4 mg/dL 8.4 - 10. 4 mg/dL [facility] Chloride [Moles/Vol] 98 mmol/L 98 - 10 7 mmol/L [facility] CO2 [Moles/Vol] 20 mmol/L Low 22 - 30 mmol/L [facility] Creatinine [Mass/Vol] 0.74 mg/dL 0.66 - 1.25 mg/dL [facility] GFR/1.73 sq M.predicted MDRD (S/P/Bld) [Vol rate/Area] - PINF [facility] Comment on above: Calculation based on the Chronic Kidney Disease Epidemiology Collaboration (CKD-EPI) equation refit without adjustment for race Glucose [Mass/Vol] 70 mg/dL 70 - 100 mg/dL [facility] Potassium [Moles/Vol] 3.6 mmol/L 3.5 - 5.1 mmol/L [facility] Protein [Mass/Vol] 6.8 g/dL 6.3 - 8.2 g/dL [facility] Sodium [Moles/Vol] 133 mmol/L Low 135 - 145 mmol/L [facility] Urea nitrogen [Mass/Vol] 10 mg/dL 9 - 20 mg/dL [facility] Drug screen panel, emergency Ordered By: Hafsa Purcell on 10-20-2023 Amphetamines Screen method >1000 ng/mL Ql (U) Negative [facility] Barbiturates Screen method >200 ng/mL Ql (U) Negative [facility] Benzodiazepines Ql (U) Negative [facility] COCAINE METAB. SCREEN Negative [facility] Methadone Screen Ql (U) Negative [facility] Opiates Screen Ql (U) Negative [facility] oxyCODONE Ql (U) Negative [facility] Phencyclidine Ql (U) Negative [facility] The expected value f or all of the drugs listed above is Negative. The following drugs or drug groups have been screened for by Immunoassay at the following thresholds: Amphetamine class (1000 ng/mL) Barbiturates (200 ng/mL) Benzodiazepines (200 ng/mL) Cocaine (300 ng/mL) Methadone (300 ng/mL) Opiates (300 ng/mL) Oxycodone (100 ng/mL) PCP (25 ng/mL) NOTE: These results are for medical treatment only. Analysis performed using non-forensic procedures. POSITIVE results are NOT confirmed by a more specific alternative method unless requested. If confirmation is needed, request confirmation under separate order. [facility] ECG 12 leadon 10-20-2023 Heart rate 99 /min bpm [facility] P [place] 0 degrees [facility] TX Interval 127 ms [facility] QRS [place] -57 degrees [facility] QRSD Interval 148 ms [facility] QT Interval 392 ms [facility] QTC Interval 503 ms [facility] T Wave [place] 6 degrees [facility] Sinus rhythm RBBB and LAFB No significant changes compared to previous Electronically Signed On 10-20-2023 18:25:24 EST by Khurram Bob CV Khurram Sinha MD - 10/20/2023 IMPRESSION: Sinus rhythm RBBB and LAFB No significant changes compared to previous Electronically Signed On 10-20-2023 18:25:24 EST by Khurram Bob [facility] Ethanol (Bld) [Mass/Vol]Orde red By: Lorin Carmona on 10-20-2023 Ethanol [Mass/Vol] 0.390 g/dL Critically high 0.000 - 0.010 g/dL [facility] Interpretation and review of laboratory results Abnormal [facility] Hepatic function 2000 panelo n 10-20-2023 Albumin [Mass/Vol] 4.6 g/dL 3.5 - 5.0 g/dL [facility] ALP [Catalytic activity/Vol] 105 U/L 38 - 126 U/L [facility] ALT [Catalytic activity/Vol] 85 U/L High 0 - 49 U/L [facility] AST [Catalytic activity/Vol] 250 U/L High 15 - 46 U/L [facility] Bilirubin [Mass/Vol] 1.4 mg/dL High 0.2 - 1 .3 mg/dL [facility] Bilirubin.conjugated [Mass/Vol] 0.0 mg/dL 0.0 - 0.3 mg/dL [facility] Protein [Mass/Vol] 8.2 g/dL 6.3 - 8.2 g/dL [facility] Lipaseon 10-20-2023 Lipase [Catalytic activity/Vol] 537 U/L High 23 - 300 U/L [facility] Lipase [Catalytic activity/Vol] 615 U/L High 23 - 300 U/L [facility] No Panel Informationon 10-20 Interpretation and review of laboratory results Abnormal [facility] Interpretation and review of laboratory results Abnormal [facility] Troponin Ion 10-20-2023 Troponin I.cardiac [Mass/Vol] ng/mL NINF - 0.034 ng/mL [facility] Troponin I.cardiac [Mass/Vol ]on 10-20-2023 Interpretation and review of laboratory results Normal [facility] Patients with high l evels of Biotin oral intake (ie >5 mg/day) may have falsely decreased Troponin levels. [facility] Interpretation and review of laboratory results Normal [facility] Patients with high l evels of Biotin oral intake (ie >5 mg/day) may have falsely decreased Troponin levels. [facility] Troponin, with Serial Reflex on 10-20-2023 Troponin I.cardiac [Mass/Vol] ng/mL NINF - 0.034 ng/mL [facility] Urinalysis complete panel (U )on 10-20-2023 Bilirubin Ql (U) Negative Negative mg/dL [facility] Clarity (U) Clear Clear [facility] Color (U) Light Yellow Lt. Yellow [facility] Glucose Ql (U) Normal Normal (<70) mg/dL [facility] Hemoglobin Ql (U) Negative Negative mg/dL [facility] Interpretation and review of laboratory results Normal [facility] Ketones (U) [Mass/Vol] Negative Negat zenia mg/dL [facility] Leukocyte esterase Test strip Ql (U) Negative Negative Emma/uL [facility] Nitrite Ql (U) Negative Negative [facility] pH (U) 5.0 [pH] 5.0 - 8.0 pH [facility] Protein (U) [Mass/Vol] Negative Negat zenia mg/dL [facility] Specific gravity (U) [Rel density] 1.006 1.005 - 1.030 [facility] Urobilinogen (U) [Mass/Vol] Normal Normal (0-1) mg/dL [facility] [employer] XR Chest Single viewon 10-20 FINDINGS AND IMPRESS ION: SUPPORT DEVICES: None OSSEOUS STRUCTURES: Unremarkable. HEART AND MEDIASTINUM: The cardiomediastinal silhouette appears unchanged from the prior exam. LUNGS AND PLEURA: The lungs are clear. No sizable pleural effusion. Report Dictated on Electronically Signed By: Richie Morrison MD Electronically Signed Date/Time: 10/20/2023 5:24 PM [facility] [employer] Patient Name: WOODY NI : 1960 Exam Date/Time: 10/20/2023 17:10 Procedure: XR CHEST 1 VIEW Ordering Provider: BOB KEVIN Reason For Exam: ABDOMINAL PAIN CHEST CLINICAL INDICATION: Abdominal pain TECHNIQUE: AP portable chest COMPARISON: 06/25/[address] [facility] Richie Morrison MD - 10/20/2023 Patient Name: WOODY NI : 1960 Exam Date/Time: 10/20/2023 17:10 Procedure: XR CHEST 1 VIEW Ordering Provider: BOB KEVIN Reason For Exam: ABDOMINAL PAIN CHEST CLINICAL INDICATION: Abdominal pain TECHNIQUE: AP portable chest COMPARISON: 06/25/2023 IMPRESSION: FINDINGS AND IMPRESSION: SUPPORT DEVICES: None OSSEOUS STRUCTURES: Unremarkable. HEART AND MEDIASTINUM: The cardiomediastinal silhouette appears unchanged from the prior exam. LUNGS AND PLEURA: The lungs are clear. No sizable pleural effusion. Report Dictated on Electronically Signed By: Richie Morrison MD Electronically Signed Date/Time: 10/20/2023 5:24 PM EST [facility] Radiology Study observation (narrative) [facility] XR Chest Single viewOrdered By: Richie Morrison on 10-20-2023 [facility] [employer] Work Phone: Basic metabolic 1998 panelon 07-05-2023 Anion gap [Moles/Vol] 5 mmol/L 3 - 13 mmol/L [facility] Calcium [Mass/Vol] 9.3 mg/dL 8.4 - 10. 4 mg/dL [facility] Chloride [Moles/Vol] 100 mmol/L 98 - 10 7 mmol/L [facility] CO2 [Moles/Vol] 25 mmol/L 22 - 30 mmol/L [facility] Creatinine [Mass/Vol] 0.87 mg/dL 0.66 - 1.25 mg/dL [facility] GFR/1.73 sq M.predicted MDRD (S/P/Bld) [Vol rate/Area] - PINF [facility] Comment on above: Calculation based on the Chronic Kidney Disease Epidemiology Collaboration (CKD-EPI) equation refit without adjustment for race Glucose [Mass/Vol] 88 mg/dL 70 - 100 mg/dL [facility] Interpretation and review of laboratory results Abnormal [facility] Potassium [Moles/Vol] 4.4 mmol/L 3.5 - 5.1 mmol/L [facility] Sodium [Moles/Vol] 130 mmol/L Low 135 - 145 mmol/L [facility] Urea nitrogen [Mass/Vol] 11 mg/dL 9 - 20 mg/dL [facility] CBC panel Auto (Bld)Ordered By: Daniel Allen on 07-05-2023 Erythrocyte distribution width (RBC) [Ratio] 14.8 % High 11.5 - 14.5 % [facility] Hematocrit (Bld) [Volume fraction] 29.4 % Low 40.0 - 52.0 % [facility] Hemoglobin (Bld) [Mass/Vol] 10.1 g/dL Low 13.0 - 18.0 g/dL [facility] Interpretation and review of laboratory results Abnormal [facility] MCH (RBC) [Entitic mass] 33.5 pg 26.0 - 34.0 pg [facility] MCHC (RBC) [Mass/Vol] 34.3 % 32.0 - 36.0 % [facility] MCV (RBC) [Entitic vol] 97.8 fL 80.0 - 98.0 fL [facility] Platelet mean volume (Bld) [Entitic vol] 7.4 fL 7.4 - 12.4 fL [facility] Platelets (Bld) [#/Vol] 219 10*3/uL 140 - 440 10*3/uL [facility] RBC (Bld) [#/Vol] 3.01 10*6/uL Low 4.40 - 5.9 0 10*6/uL [facility] WBC (Bld) [#/Vol] 4.8 10*3/uL 3.6 - 10.7 10*3/uL [facility] Basic metabolic 1998 panelon 07-04-2023 Anion gap [Moles/Vol] 7 mmol/L 3 - 13 mmol/L [facility] Calcium [Mass/Vol] 9.5 mg/dL 8.4 - 10. 4 mg/dL [facility] Chloride [Moles/Vol] 100 mmol/L 98 - 10 7 mmol/L [facility] CO2 [Moles/Vol] 25 mmol/L 22 - 30 mmol/L [facility] Creatinine [Mass/Vol] 0.97 mg/dL 0.66 - 1.25 mg/dL [facility] GFR/1.73 sq M.predicted MDRD (S/P/Bld) [Vol rate/Area] 87.7 mL/min/{1.73_m2} - PINF [facility] Comment on above: Calculation based on the Chronic Kidney Disease Epidemiology Collaboration (CKD-EPI) equation refit without adjustment for race Glucose [Mass/Vol] 107 mg/dL High 70 - 100 mg/dL [facility] Interpretation and review of laboratory results Abnormal [facility] Potassium [Moles/Vol] 4.8 mmol/L 3.5 - 5.1 mmol/L [facility] Sodium [Moles/Vol] 132 mmol/L Low 135 - 145 mmol/L [facility] Urea nitrogen [Mass/Vol] 12 mg/dL 9 - 20 mg/dL [facility] Anion gap [Moles/Vol] 8 mmol/L 3 - 13 mmol/L [facility] Calcium [Mass/Vol] 8.7 mg/dL 8.4 - 10. 4 mg/dL [facility] Chloride [Moles/Vol] 102 mmol/L 98 - 10 7 mmol/L [facility] CO2 [Moles/Vol] 20 mmol/L Low 22 - 30 mmol/L [facility] Creatinine [Mass/Vol] 0.90 mg/dL 0.66 - 1.25 mg/dL [facility] GFR/1.73 sq M.predicted MDRD (S/P/Bld) [Vol rate/Area] - [facility] Comment on above: Calculation based on the Chronic Kidney Disease Epidemiology Collaboration (CKD-EPI) equation refit without adjustment for race Glucose [Mass/Vol] 140 mg/dL High 70 - 100 mg/dL [facility] Interpretation and review of laboratory results Abnormal [facility] Potassium [Moles/Vol] 4.2 mmol/L 3.5 - 5.1 mmol/L [facility] Sodium [Moles/Vol] 130 mmol/L Low 135 - 145 mmol/L [facility] Urea nitrogen [Mass/Vol] 8 mg/dL Low 9 - 20 mg/dL [facility] Anion gap [Moles/Vol] 3 mmol/L 3 - 13 mmol/L [facility] Calcium [Mass/Vol] 8.9 mg/dL 8.4 - 10. 4 mg/dL [facility] Chloride [Moles/Vol] 103 mmol/L 98 - 10 7 mmol/L [facility] CO2 [Moles/Vol] 24 mmol/L 22 - 30 mmol/L [facility] Creatinine [Mass/Vol] 0.85 mg/dL 0.66 - 1.25 mg/dL [facility] GFR/1.73 sq M.predicted MDRD (S/P/Bld) [Vol rate/Area] - [facility] Comment on above: Calculation based on the Chronic Kidney Disease Epidemiology Collaboration (CKD-EPI) equation refit without adjustment for race Glucose [Mass/Vol] 98 mg/dL 70 - 100 mg/dL [facility] Interpretation and review of laboratory results Abnormal [facility] Potassium [Moles/Vol] 4.5 mmol/L 3.5 - 5.1 mmol/L [facility] Sodium [Moles/Vol] 130 mmol/L Low 135 - 145 mmol/L [facility] Urea nitrogen [Mass/Vol] 10 mg/dL 9 - 20 mg/dL [facility] CBC panel Auto (Bld)on 07-04 Erythrocyte distribution width (RBC) [Ratio] 14.9 % High 11.5 - 14.5 % [facility] Hematocrit (Bld) [Volume fraction] 28.1 % Low 40.0 - 52.0 % [facility] Hemoglobin (Bld) [Mass/Vol] 9.5 g/dL Low 13.0 - 18.0 g/dL [facility] Interpretation and review of laboratory results Abnormal [facility] MCH (RBC) [Entitic mass] 33.2 pg 26.0 - 34.0 pg [facility] MCHC (RBC) [Mass/Vol] 33.9 % 32.0 - 36.0 % [facility] MCV (RBC) [Entitic vol] 98.0 fL 80.0 - 98.0 fL [facility] Platelet mean volume (Bld) [Entitic vol] 7.5 fL 7.4 - 12.4 fL [facility] Platelets (Bld) [#/Vol] 190 10*3/uL 140 - 440 10*3/uL [facility] RBC (Bld) [#/Vol] 2.86 10*6/uL Low 4.40 - 5.9 0 10*6/uL [facility] WBC (Bld) [#/Vol] 3.2 10*3/uL Low 3.6 - 10.7 10*3/uL [facility] Basic metabolic 1998 panelon 07-03-2023 Anion gap [Moles/Vol] 6 mmol/L 3 - 13 mmol/L [facility] Calcium [Mass/Vol] 9.1 mg/dL 8.4 - 10. 4 mg/dL [facility] Chloride [Moles/Vol] 103 mmol/L 98 - 10 7 mmol/L [facility] CO2 [Moles/Vol] 23 mmol/L 22 - 30 mmol/L [facility] Creatinine [Mass/Vol] 0.82 mg/dL 0.66 - 1.25 mg/dL [facility] GFR/1.73 sq M.predicted MDRD (S/P/Bld) [Vol rate/Area] - PINF [facility] Comment on above: Calculation based on the Chronic Kidney Disease Epidemiology Collaboration (CKD-EPI) equation refit without adjustment for race Glucose [Mass/Vol] 112 mg/dL High 70 - 100 mg/dL [facility] Interpretation and review of laboratory results Abnormal [facility] Potassium [Moles/Vol] 4.5 mmol/L 3.5 - 5.1 mmol/L [facility] Sodium [Moles/Vol] 131 mmol/L Low 135 - 145 mmol/L [facility] Urea nitrogen [Mass/Vol] 9 mg/dL 9 - 20 mg/dL [facility] Anion gap [Moles/Vol] 6 mmol/L 3 - 13 mmol/L [facility] Calcium [Mass/Vol] 9.4 mg/dL 8.4 - 10. 4 mg/dL [facility] Chloride [Moles/Vol] 97 mmol/L Low 98 - 10 7 mmol/L [facility] CO2 [Moles/Vol] 24 mmol/L 22 - 30 mmol/L [facility] Creatinine [Mass/Vol] 0.85 mg/dL 0.66 - 1.25 mg/dL [facility] GFR/1.73 sq M.predicted MDRD (S/P/Bld) [Vol rate/Area] - [facility] Comment on above: Calculation based on the Chronic Kidney Disease Epidemiology Collaboration (CKD-EPI) equation refit without adjustment for race Glucose [Mass/Vol] 148 mg/dL High 70 - 100 mg/dL [facility] Interpretation and review of laboratory results Abnormal [facility] Potassium [Moles/Vol] 4.5 mmol/L 3.5 - 5.1 mmol/L [facility] Sodium [Moles/Vol] 127 mmol/L Low 135 - 145 mmol/L [facility] Urea nitrogen [Mass/Vol] 8 mg/dL Low 9 - 20 mg/dL [facility] Anion gap [Moles/Vol] 7 mmol/L 3 - 13 mmol/L [facility] Calcium [Mass/Vol] 9.2 mg/dL 8.4 - 10. 4 mg/dL [facility] Chloride [Moles/Vol] 98 mmol/L 98 - 10 7 mmol/L [facility] CO2 [Moles/Vol] 23 mmol/L 22 - 30 mmol/L [facility] Creatinine [Mass/Vol] 0.85 mg/dL 0.66 - 1.25 mg/dL [facility] GFR/1.73 sq M.predicted MDRD (S/P/Bld) [Vol rate/Area] - [facility] Comment on above: Calculation based on the Chronic Kidney Disease Epidemiology Collaboration (CKD-EPI) equation refit without adjustment for race Glucose [Mass/Vol] 137 mg/dL High 70 - 100 mg/dL [facility] Interpretation and review of laboratory results Abnormal [facility] Potassium [Moles/Vol] 4.4 mmol/L 3.5 - 5.1 mmol/L [facility] Sodium [Moles/Vol] 127 mmol/L Low 135 - 145 mmol/L [facility] Urea nitrogen [Mass/Vol] 6 mg/dL Low 9 - 20 mg/dL [facility] Anion gap [Moles/Vol] 6 mmol/L 3 - 13 mmol/L [facility] Calcium [Mass/Vol] 9.0 mg/dL 8.4 - 10. 4 mg/dL [facility] Chloride [Moles/Vol] 98 mmol/L 98 - 10 7 mmol/L [facility] CO2 [Moles/Vol] 22 mmol/L 22 - 30 mmol/L [facility] Creatinine [Mass/Vol] 0.82 mg/dL 0.66 - 1.25 mg/dL [facility] GFR/1.73 sq M.predicted MDRD (S/P/Bld) [Vol rate/Area] - PINF [facility] Comment on above: Calculation based on the Chronic Kidney Disease Epidemiology Collaboration (CKD-EPI) equation refit without adjustment for race Glucose [Mass/Vol] 122 mg/dL High 70 - 100 mg/dL [facility] Interpretation and review of laboratory results Abnormal [facility] Potassium [Moles/Vol] 3.9 mmol/L 3.5 - 5.1 mmol/L [facility] Sodium [Moles/Vol] 126 mmol/L Low 135 - 145 mmol/L [facility] Urea nitrogen [Mass/Vol] 7 mg/dL Low 9 - 20 mg/dL [facility] Basic metabolic 1998 panelon 07-02-2023 Anion gap [Moles/Vol] 6 mmol/L 3 - 13 mmol/L [facility] Calcium [Mass/Vol] 8.9 mg/dL 8.4 - 10. 4 mg/dL [facility] Chloride [Moles/Vol] 97 mmol/L Low 98 - 10 7 mmol/L [facility] CO2 [Moles/Vol] 23 mmol/L 22 - 30 mmol/L [facility] Creatinine [Mass/Vol] 0.80 mg/dL 0.66 - 1.25 mg/dL [facility] GFR/1.73 sq M.predicted MDRD (S/P/Bld) [Vol rate/Area] - [facility] Comment on above: Calculation based on the Chronic Kidney Disease Epidemiology Collaboration (CKD-EPI) equation refit without adjustment for race Glucose [Mass/Vol] 138 mg/dL High 70 - 100 mg/dL [facility] Interpretation and review of laboratory results Abnormal [facility] Potassium [Moles/Vol] 3.9 mmol/L 3.5 - 5.1 mmol/L [facility] Sodium [Moles/Vol] 127 mmol/L Low 135 - 145 mmol/L [facility] Urea nitrogen [Mass/Vol] 8 mg/dL Low 9 - 20 mg/dL [facility] Anion gap [Moles/Vol] 5 mmol/L 3 - 13 mmol/L [facility] Calcium [Mass/Vol] 8.5 mg/dL 8.4 - 10. 4 mg/dL [facility] Chloride [Moles/Vol] 101 mmol/L 98 - 10 7 mmol/L [facility] CO2 [Moles/Vol] 23 mmol/L 22 - 30 mmol/L [facility] Creatinine [Mass/Vol] 0.92 mg/dL 0.66 - 1.25 mg/dL [facility] GFR/1.73 sq M.predicted MDRD (S/P/Bld) [Vol rate/Area] - PINF [facility] Comment on above: Calculation based on the Chronic Kidney Disease Epidemiology Collaboration (CKD-EPI) equation refit without adjustment for race Glucose [Mass/Vol] 102 mg/dL High 70 - 100 mg/dL [facility] Interpretation and review of laboratory results Abnormal [facility] Potassium [Moles/Vol] 3.6 mmol/L 3.5 - 5.1 mmol/L [facility] Sodium [Moles/Vol] 130 mmol/L Low 135 - 145 mmol/L [facility] Urea nitrogen [Mass/Vol] 14 mg/dL 9 - 20 mg/dL [facility] CBC panel Auto (Bld)Ordered By: Sandy Nance on 07-02-2023 Erythrocyte distribution width (RBC) [Ratio] 15.3 % High 11.5 - 14.5 % [facility] Hematocrit (Bld) [Volume fraction] 29.2 % Low 40.0 - 52.0 % [facility] Hemoglobin (Bld) [Mass/Vol] 10.4 g/dL Low 13.0 - 18.0 g/dL [facility] Interpretation and review of laboratory results Abnormal [facility] MCH (RBC) [Entitic mass] 34.2 pg High 26.0 - 34.0 pg [facility] MCHC (RBC) [Mass/Vol] 35.5 % 32.0 - 36.0 % [facility] MCV (RBC) [Entitic vol] 96.2 fL 80.0 - 98.0 fL [facility] Platelet mean volume (Bld) [Entitic vol] 7.0 fL Low 7.4 - 12.4 fL [facility] Platelets (Bld) [#/Vol] 197 10*3/uL 140 - 440 10*3/uL [facility] RBC (Bld) [#/Vol] 3.03 10*6/uL Low 4.40 - 5.9 0 10*6/uL [facility] WBC (Bld) [#/Vol] 3.3 10*3/uL Low 3.6 - 10.7 10*3/uL [facility] Comprehensive metabolic 1998 panelon 07-02-2023 Albumin [Mass/Vol] 3.7 g/dL 3.5 - 5.0 g/dL [facility] ALP [Catalytic activity/Vol] 87 U/L 38 - 126 U/L [facility] ALT [Catalytic activity/Vol] 28 U/L 0 - 49 U/L [facility] Anion gap [Moles/Vol] 5 mmol/L 3 - 13 mmol/L [facility] AST [Catalytic activity/Vol] 46 U/L 15 - 46 U/L [facility] Bilirubin [Mass/Vol] 0.8 mg/dL 0.2 - 1 .3 mg/dL [facility] Calcium [Mass/Vol] 9.1 mg/dL 8.4 - 10. 4 mg/dL [facility] Chloride [Moles/Vol] 100 mmol/L 98 - 10 7 mmol/L [facility] CO2 [Moles/Vol] 23 mmol/L 22 - 30 mmol/L [facility] Creatinine [Mass/Vol] 0.97 mg/dL 0.66 - 1.25 mg/dL [facility] GFR/1.73 sq M.predicted MDRD (S/P/Bld) [Vol rate/Area] 87.7 mL/min/{1.73_m2} - PINF [facility] Comment on above: Calculation based on the Chronic Kidney Disease Epidemiology Collaboration (CKD-EPI) equation refit without adjustment for race Glucose [Mass/Vol] 133 mg/dL High 70 - 100 mg/dL [facility] Interpretation and review of laboratory results Abnormal [facility] Potassium [Moles/Vol] 3.9 mmol/L 3.5 - 5.1 mmol/L [facility] Protein [Mass/Vol] 6.5 g/dL 6.3 - 8.2 g/dL [facility] Sodium [Moles/Vol] 127 mmol/L Low 135 - 145 mmol/L [facility] Urea nitrogen [Mass/Vol] 13 mg/dL 9 - 20 mg/dL [facility] Basic metabolic 1998 panelon 07-01-2023 Anion gap [Moles/Vol] 6 mmol/L 3 - 13 mmol/L [facility] Calcium [Mass/Vol] 8.6 mg/dL 8.4 - 10. 4 mg/dL [facility] Chloride [Moles/Vol] 99 mmol/L 98 - 10 7 mmol/L [facility] CO2 [Moles/Vol] 22 mmol/L 22 - 30 mmol/L [facility] Creatinine [Mass/Vol] 1.06 mg/dL 0.66 - 1.25 mg/dL [facility] GFR/1.73 sq M.predicted MDRD (S/P/Bld) [Vol rate/Area] 78.9 mL/min/{1.73_m2} - PINF [facility] Comment on above: Calculation based on the Chronic Kidney Disease Epidemiology Collaboration (CKD-EPI) equation refit without adjustment for race Glucose [Mass/Vol] 133 mg/dL High 70 - 100 mg/dL [facility] Interpretation and review of laboratory results Abnormal [facility] Potassium [Moles/Vol] 3.8 mmol/L 3.5 - 5.1 mmol/L [facility] Sodium [Moles/Vol] 128 mmol/L Low 135 - 145 mmol/L [facility] Urea nitrogen [Mass/Vol] 15 mg/dL 9 - 20 mg/dL [facility] Anion gap [Moles/Vol] 8 mmol/L 3 - 13 mmol/L [facility] Calcium [Mass/Vol] 8.7 mg/dL 8.4 - 10. 4 mg/dL [facility] Chloride [Moles/Vol] 99 mmol/L 98 - 10 7 mmol/L [facility] CO2 [Moles/Vol] 21 mmol/L Low 22 - 30 mmol/L [facility] Creatinine [Mass/Vol] 1.08 mg/dL 0.66 - 1.25 mg/dL [facility] [employer] GFR/1.73 sq M.predicted MDRD (S/P/Bld) [Vol rate/Area] 77.1 mL/min/{1.73_m2} - [facility] Comment on above: Calculation based on the Chronic Kidney Disease Epidemiology Collaboration (CKD-EPI) equation refit without adjustment for race Glucose [Mass/Vol] 104 mg/dL High 70 - 100 mg/dL [facility] Interpretation and review of laboratory results Abnormal [facility] [employer] Potassium [Moles/Vol] 4.1 mmol/L 3.5 - 5.1 mmol/L [facility] [employer] Sodium [Moles/Vol] 128 mmol/L Low 135 - 145 mmol/L [facility] Urea nitrogen [Mass/Vol] 14 mg/dL 9 - 20 mg/dL [facility] Anion gap [Moles/Vol] 9 mmol/L 3 - 13 mmol/L [facility] Calcium [Mass/Vol] 8.6 mg/dL 8.4 - 10. 4 mg/dL [facility] Chloride [Moles/Vol] 98 mmol/L 98 - 10 7 mmol/L [facility] [employer] CO2 [Moles/Vol] 21 mmol/L Low 22 - 30 mmol/L [facility] Creatinine [Mass/Vol] 1.04 mg/dL 0.66 - 1.25 mg/dL [facility] GFR/1.73 sq M.predicted MDRD (S/P/Bld) [Vol rate/Area] 80.7 mL/min/{1.73_m2} - [facility] Comment on above: Calculation based on the Chronic Kidney Disease Epidemiology Collaboration (CKD-EPI) equation refit without adjustment for race Glucose [Mass/Vol] 78 mg/dL 70 - 100 mg/dL [facility] Interpretation and review of laboratory results Abnormal [facility] Potassium [Moles/Vol] 4.5 mmol/L 3.5 - 5.1 mmol/L [facility] Sodium [Moles/Vol] 128 mmol/L Low 135 - 145 mmol/L [facility] Urea nitrogen [Mass/Vol] 11 mg/dL 9 - 20 mg/dL [facility] CBC W Auto Differential pane l (Bld)Ordered By: Philip Medrano on 07-01-2023 Basophils (Bld) [#/Vol] 0.0 10*3/uL 0.0 - 0.2 10*3/uL [facility] Basophils/100 WBC (Bld) 0.4 % 0.0 - 2.0 % [facility] Eosinophils (Bld) [#/Vol] 0.1 10*3/uL 0.0 - 0.5 10*3/uL [facility] Eosinophils/100 WBC (Bld) 1.1 % 1.0 - 6.0 % [facility] Erythrocyte distribution width (RBC) [Ratio] 15.1 % High 11.5 - 14.5 % [facility] Hematocrit (Bld) [Volume fraction] 34.1 % Low 40.0 - 52.0 % [facility] Hemoglobin (Bld) [Mass/Vol] 12.2 g/dL Low 13.0 - 18.0 g/dL [facility] Interpretation and review of laboratory results Abnormal [facility] Lymphocytes (Bld) [#/Vol] 1.2 10*3/uL 1.0 - 4.3 10*3/uL [facility] Lymphocytes/100 WBC (Bld) 22.5 % 20.0 - 40.0 % [facility] MCH (RBC) [Entitic mass] 33.8 pg 26.0 - 34.0 pg [facility] MCHC (RBC) [Mass/Vol] 35.7 % 32.0 - 36.0 % [facility] MCV (RBC) [Entitic vol] 94.7 fL 80.0 - 98.0 fL [facility] Monocytes (Bld) [#/Vol] 0.8 10*3/uL 0.0 - 0.8 10*3/uL [facility] Monocytes/100 WBC (Bld) 14.8 % High 2.0 - 10.0 % [facility] Neutrophils (Bld) [#/Vol] 3.1 10*3/uL 1.8 - 7.0 10*3/uL [facility] Neutrophils/100 WBC (Bld) 61.2 % 40.0 - 80.0 % [facility] Nucleated RBC/100 WBC (Bld) [Ratio] 0.0 % [facility] Platelet mean volume (Bld) [Entitic vol] 7.2 fL Low 7.4 - 12.4 fL [facility] Platelets (Bld) [#/Vol] 242 10*3/uL 140 - 440 10*3/uL [facility] RBC (Bld) [#/Vol] 3.60 10*6/uL Low 4.40 - 5.9 0 10*6/uL [facility] WBC (Bld) [#/Vol] 5.1 10*3/uL 3.6 - 10.7 10*3/uL [facility] Comprehensive metabolic 1998 panelOrdered By: Montrell Charles on 07-01-2023 Albumin [Mass/Vol] 4.1 g/dL 3.5 - 5.0 g/dL [facility] ALP [Catalytic activity/Vol] 92 U/L 38 - 126 U/L [facility] ALT [Catalytic activity/Vol] 40 U/L 0 - 49 U/L [facility] Anion gap [Moles/Vol] 13 mmol/L 3 - 13 mmol/L [facility] AST [Catalytic activity/Vol] 73 U/L High 15 - 46 U/L [facility] Bilirubin [Mass/Vol] 0.7 mg/dL 0.2 - 1 .3 mg/dL [facility] Calcium [Mass/Vol] 8.9 mg/dL 8.4 - 10. 4 mg/dL [facility] Chloride [Moles/Vol] 95 mmol/L Low 98 - 10 7 mmol/L [facility] CO2 [Moles/Vol] 19 mmol/L Low 22 - 30 mmol/L [facility] Creatinine [Mass/Vol] 1.19 mg/dL 0.66 - 1.25 mg/dL [facility] GFR/1.73 sq M.predicted MDRD (S/P/Bld) [Vol rate/Area] 68.6 mL/min/{1.73_m2} - [facility] Comment on above: Calculation based on the Chronic Kidney Disease Epidemiology Collaboration (CKD-EPI) equation refit without adjustment for race Glucose [Mass/Vol] 75 mg/dL 70 - 100 mg/dL [facility] Interpretation and review of laboratory results Abnormal [facility] Potassium [Moles/Vol] 4.0 mmol/L 3.5 - 5.1 mmol/L [facility] Protein [Mass/Vol] 7.0 g/dL 6.3 - 8.2 g/dL [facility] Sodium [Moles/Vol] 128 mmol/L Low 135 - 145 mmol/L [facility] Urea nitrogen [Mass/Vol] 10 mg/dL 9 - 20 mg/dL [facility] Laboratory - Chemistry and C hemistry - challengeon 07-01-2023 Sodium (24H U) [Mass/Vol] 5 mmol/L Low 30 - 90 mmol/L [facility] No Panel InformationOrdered By: Sergio Chamberlain on 07-01-2023 Interpretation and review of laboratory results Abnormal [facility] OSMOLALITY, URINE 135 Low [facility] No Panel Informationon 07-01 Interpretation and review of laboratory results Abnormal [facility] CBC W Auto Differential pane l (Bld)Ordered By: Maricruz Mesa on 06-30-2023 Basophils (Bld) [#/Vol] 0.0 10*3/uL 0.0 - 0.2 10*3/uL [facility] Basophils/100 WBC (Bld) 0.3 % 0.0 - 2.0 % [facility] Eosinophils (Bld) [#/Vol] 0.1 10*3/uL 0.0 - 0.5 10*3/uL [facility] Eosinophils/100 WBC (Bld) 1.5 % 1.0 - 6.0 % [facility] Erythrocyte distribution width (RBC) [Ratio] 15.2 % High 11.5 - 14.5 % [facility] Hematocrit (Bld) [Volume fraction] 36.9 % Low 40.0 - 52.0 % [facility] Hemoglobin (Bld) [Mass/Vol] 13.0 g/dL 13.0 - 18.0 g/dL [facility] Interpretation and review of laboratory results Abnormal [facility] Lymphocytes (Bld) [#/Vol] 2.1 10*3/uL 1.0 - 4.3 10*3/uL [facility] Lymphocytes/100 WBC (Bld) 31.6 % 20.0 - 40.0 % [facility] MCH (RBC) [Entitic mass] 33.5 pg 26.0 - 34.0 pg [facility] MCHC (RBC) [Mass/Vol] 35.3 % 32.0 - 36.0 % [facility] MCV (RBC) [Entitic vol] 95.0 fL 80.0 - 98.0 fL [facility] Monocytes (Bld) [#/Vol] 0.7 10*3/uL 0.0 - 0.8 10*3/uL [facility] Monocytes/100 WBC (Bld) 10.9 % High 2.0 - 10.0 % [facility] Neutrophils (Bld) [#/Vol] 3.6 10*3/uL 1.8 - 7.0 10*3/uL [facility] Neutrophils/100 WBC (Bld) 55.7 % 40.0 - 80.0 % [facility] Nucleated RBC/100 WBC (Bld) [Ratio] 0.2 % [facility] Platelet mean volume (Bld) [Entitic vol] 6.9 fL Low 7.4 - 12.4 fL [facility] Platelets (Bld) [#/Vol] 256 10*3/uL 140 - 440 10*3/uL [facility] RBC (Bld) [#/Vol] 3.89 10*6/uL Low 4.40 - 5.9 0 10*6/uL [facility] WBC (Bld) [#/Vol] 6.5 10*3/uL 3.6 - 10.7 10*3/uL [facility] CT Cervical spine WO contras ton 06-30-2023 [facility]: [facility] NI : 1960 [id number] Exam Date/Time: 06/30/2023 17:49 Procedure: CT CERVICAL SPINE WO IV CONTRAST Ordering Provider: WHITLEY QUENTIN Reason For Exam: Neck trauma, dangerous injury mechanism (Age 16-64y) CT BRAIN AND CERVICAL SPINE WITHOUT CONTRAST CLINICAL INDICATION: Head trauma, abnormal mental status (Age 18-64y) TECHNIQUE: CT scan of the brain and cervical spine without IV contrast. Multiplanar reformations. Dose reduction was employed with automated exposure control. COMPARISON: CT brain, June,. FINDINGS: Brain: No parenchymal mass, mass effect, hemorrhage, midline shift or hydrocephalus. No evidence of acute cortical infarct. No abnormal, extra-axial fluid or air collection. Mild, patchy low density in the periventricular and subcortical white matter is nonspecific, but may relate to chronic small vessel ischemic change. Focal encephalomalacia suggesting old ischemic change or infarct(s) in the left temporal region again noted. Mild, diffuse volume loss. Osseous calvarium grossly intact. Cervical spine: Multilevel degenerative disc disease and spondylosis. No acute compression deformity or gross malalignment of cervical vertebral bodies. No acute fracture. No acute, osseous central spinal canal encroachment. Paraspinal soft tissues grossly unremarkable. [facility] Dallas Hanks MD - 06/30/2023 Patient Name: WOODY NI : 1960 Exam Date/Time: 06/30/2023 17:49 Procedure: CT CERVICAL SPINE WO IV CONTRAST Ordering Provider: WHITLEY QUENTIN Reason For Exam: Neck trauma, dangerous injury mechanism (Age 16-64y) CT BRAIN AND CERVICAL SPINE WITHOUT CONTRAST CLINICAL INDICATION: Head trauma, abnormal mental status (Age 18-64y) TECHNIQUE: CT scan of the brain and cervical spine without IV contrast. Multiplanar reformations. Dose reduction was employed with automated exposure control. COMPARISON: CT brain, June,. FINDINGS: Brain: No parenchymal mass, mass effect, hemorrhage, midline shift or hydrocephalus. No evidence of acute cortical infarct. No abnormal, extra-axial fluid or air collection. Mild, patchy low density in the periventricular and subcortical white matter is nonspecific, but may relate to chronic small vessel ischemic change. Focal encephalomalacia suggesting old ischemic change or infarct(s) in the left temporal region again noted. Mild, diffuse volume loss. Osseous calvarium grossly intact. Cervical spine: Multilevel degenerative disc disease and spondylosis. No acute compression deformity or gross malalignment of cervical vertebral bodies. No acute fracture. No acute, osseous central spinal canal encroachment. Paraspinal soft tissues grossly unremarkable. IMPRESSION: 1. No acute intracranial findings. Chronic ischemic and atrophic changes. 2. No acute compression deformity or apparent fracture in the cervical spine. Degenerative spondylosis. Report Dictated on Electronically Signed By: Dallas Hanks MD Electronically Signed Date/Time: 06/30/2023 5:58 PM EDT [facility] CT Head WO contraston 2022 Patient Name: WOODY NI : 1960 Exam Date/Time: 06/30/2023 17:48 Procedure: CT HEAD WO IV CONTRAST Ordering Provider: WHITLEY QUENTIN Reason For Exam: Head trauma, abnormal mental status (Age 18-64y) CT BRAIN AND CERVICAL SPINE WITHOUT CONTRAST CLINICAL INDICATION: Head trauma, abnormal mental status (Age 18-64y) TECHNIQUE: CT scan of the brain and cervical spine without IV contrast. Multiplanar reformations. Dose reduction was employed with automated exposure control. COMPARISON: CT brain, June,. FINDINGS: Brain: No parenchymal mass, mass effect, hemorrhage, midline shift or hydrocephalus. No evidence of acute cortical infarct. No abnormal, extra-axial fluid or air collection. Mild, patchy low density in the periventricular and subcortical white matter is nonspecific, but may relate to chronic small vessel ischemic change. Focal encephalomalacia suggesting old ischemic change or infarct(s) in the left temporal region again noted. Mild, diffuse volume loss. Osseous calvarium grossly intact. Cervical spine: Multilevel degenerative disc disease and spondylosis. No acute compression deformity or gross malalignment of cervical vertebral bodies. No acute fracture. No acute, osseous central spinal canal encroachment. Paraspinal soft tissues grossly unremarkable. [facility] Dlalas Hanks MD - 06/30/2023 Patient Name: WOODY NI : 1960 Exam Date/Time: 06/30/2023 17:48 Procedure: CT HEAD WO IV CONTRAST Ordering Provider: WHITLEY QUENTIN Reason For Exam: Head trauma, abnormal mental status (Age 18-64y) CT BRAIN AND CERVICAL SPINE WITHOUT CONTRAST CLINICAL INDICATION: Head trauma, abnormal mental status (Age 18-64y) TECHNIQUE: CT scan of the brain and cervical spine without IV contrast. Multiplanar reformations. Dose reduction was employed with automated exposure control. COMPARISON: CT brain, June,. FINDINGS: Brain: No parenchymal mass, mass effect, hemorrhage, midline shift or hydrocephalus. No evidence of acute cortical infarct. No abnormal, extra-axial fluid or air collection. Mild, patchy low density in the periventricular and subcortical white matter is nonspecific, but may relate to chronic small vessel ischemic change. Focal encephalomalacia suggesting old ischemic change or infarct(s) in the left temporal region again noted. Mild, diffuse volume loss. Osseous calvarium grossly intact. Cervical spine: Multilevel degenerative disc disease and spondylosis. No acute compression deformity or gross malalignment of cervical vertebral bodies. No acute fracture. No acute, osseous central spinal canal encroachment. Paraspinal soft tissues grossly unremarkable. IMPRESSION: 1. No acute intracranial findings. Chronic ischemic and atrophic changes. 2. No acute compression deformity or apparent fracture in the cervical spine. Degenerative spondylosis. Report Dictated on Electronically Signed By: Dallas Hanks MD Electronically Signed Date/Time: 06/30/2023 5:58 PM EDT [facility] Comprehensive metabolic 1998 panelOrdered By: Hafsa Purcell on 06-30-2023 Albumin [Mass/Vol] 4.8 g/dL 3.5 - 5.0 g/dL [facility] ALP [Catalytic activity/Vol] 102 U/L 38 - 126 U/L [facility] ALT [Catalytic activity/Vol] 45 U/L 0 - 49 U/L [facility] Anion gap [Moles/Vol] 14 mmol/L High 3 - 13 mmol/L [facility] AST [Catalytic activity/Vol] 83 U/L High 15 - 46 U/L [facility] Bilirubin [Mass/Vol] 0.8 mg/dL 0.2 - 1 .3 mg/dL [facility] Calcium [Mass/Vol] 9.2 mg/dL 8.4 - 10. 4 mg/dL [facility] Chloride [Moles/Vol] 86 mmol/L Low 98 - 10 7 mmol/L [facility] CO2 [Moles/Vol] 19 mmol/L Low 22 - 30 mmol/L [facility] Creatinine [Mass/Vol] 1.36 mg/dL High 0.66 - 1.25 mg/dL [facility] GFR/1.73 sq M.predicted MDRD (S/P/Bld) [Vol rate/Area] 58.5 mL/min/{1.73_m2} Low - PINF [facility] Comment on above: Calculation based on the Chronic Kidney Disease Epidemiology Collaboration (CKD-EPI) equation refit without adjustment for race Glucose [Mass/Vol] 82 mg/dL 70 - 100 mg/dL [facility] Interpretation and review of laboratory results Abnormal [facility] Potassium [Moles/Vol] 4.3 mmol/L 3.5 - 5.1 mmol/L [facility] Protein [Mass/Vol] 8.4 g/dL High 6.3 - 8.2 g/dL [facility] Sodium [Moles/Vol] 119 mmol/L Critically low 135 - 1 45 mmol/L [facility] Urea nitrogen [Mass/Vol] 11 mg/dL 9 - 20 mg/dL [facility] Ethanol (Bld) [Mass/Vol]on 0 06-30-2023 Ethanol [Mass/Vol] 0.270 g/dL High 0.000 - 0.010 g/dL [facility] Interpretation and review of laboratory results Abnormal [facility] Laboratory - Drug toxicology on 06-30-2023 Amphetamines Screen method >1000 ng/mL Ql (U) Negative [facility] Barbiturates Screen method >200 ng/mL Ql (U) Positive [facility] Benzodiazepines Ql (U) Negative [facility] Methadone Screen Ql (U) Negative [facility] Opiates Screen Ql (U) Negative [facility] oxyCODONE Ql (U) Negative [facility] Phencyclidine Ql (U) Negative [facility] Laboratory - Microbiology an d Antimicrobial susceptibilityon 06-30-2023 SARS-CoV-2 (COVID-19) Ag IA.rapid Ql (Resp) Negative Negative [facility] Comment on above: A negative result do es not rule out the possibility of SARS-CoV-2 infection. NAAT-based methods should be considered for symptomatic patients presenting greater than seven days after onset of symptoms. Method: Lateral flow immunoassay. Fact sheets for healthcare providers and patients can be found at the following sites: https://www.fda.gov/media/659625/download https://www.fda.gov/media/016519/download No Panel Informationon 06-30 COCAINE METAB. SCREEN Negative [facility] The expected value f or all of the drugs listed above is Negative. The following drugs or drug groups have been screened for by Immunoassay at the following thresholds: Amphetamine class (1000 ng/mL) Barbiturates (200 ng/mL) Benzodiazepines (200 ng/mL) Cocaine (300 ng/mL) Methadone (300 ng/mL) Opiates (300 ng/mL) Oxycodone (100 ng/mL) PCP (25 ng/mL) NOTE: These results are for medical treatment only. Analysis performed using non-forensic procedures. POSITIVE results are NOT confirmed by a more specific alternative method unless requested. If confirmation is needed, request confirmation under separate order. [facility] 1. No acute intracranial findings. Chronic ischemic and atrophic changes. 2. No acute compression deformity or apparent fracture in the cervical spine. Degenerative spondylosis. Report Dictated on Electronically Signed By: Dallas Hanks MD Electronically Signed Date/Time: 06/30/2023 5:58 PM EDT [facility] Radiology Study observation (narrative) [facility] No Panel InformationOrdered By: Dallas Hanks on 06-30-2023 [facility] Work Phone: SARS-CoV-2 (COVID-19) Ag IA. rapid Ql (Resp)on 06-30-2023 Interpretation and review of laboratory results Normal [facility] CBC panel Auto (Bld)on 04-15 Erythrocyte distribution width (RBC) [Ratio] 14.1 % 11.5 - 14.5 % [facility] Hematocrit (Bld) [Volume fraction] 31.0 % Low 40.0 - 52.0 % [facility] Hemoglobin (Bld) [Mass/Vol] 10.6 g/dL Low 13.0 - 18.0 g/dL [facility] Interpretation and review of laboratory results Abnormal [facility] MCH (RBC) [Entitic mass] 34.2 pg High 26.0 - 34.0 pg [facility] MCHC (RBC) [Mass/Vol] 34.2 % 32.0 - 36.0 % [facility] MCV (RBC) [Entitic vol] 99.9 fL High 80.0 - 98.0 fL [facility] Platelet mean volume (Bld) [Entitic vol] 7.7 fL 7.4 - 12.4 fL [facility] Platelets (Bld) [#/Vol] 185 10*3/uL 140 - 440 10*3/uL [facility] RBC (Bld) [#/Vol] 3.11 10*6/uL Low 4.40 - 5.9 0 10*6/uL [facility] WBC (Bld) [#/Vol] 4.3 10*3/uL 3.6 - 10.7 10*3/uL [facility] Comprehensive metabolic 1998 panelon 04-15-2023 Albumin [Mass/Vol] 3.6 g/dL 3.5 - 5.0 g/dL [facility] ALP [Catalytic activity/Vol] 58 U/L 38 - 126 U/L [facility] ALT [Catalytic activity/Vol] 65 U/L High 0 - 49 U/L [facility] Anion gap [Moles/Vol] 6 mmol/L 3 - 13 mmol/L [facility] AST [Catalytic activity/Vol] 87 U/L High 15 - 46 U/L [facility] Bilirubin [Mass/Vol] 0.4 mg/dL 0.2 - 1 .3 mg/dL [facility] Calcium [Mass/Vol] 8.8 mg/dL 8.4 - 10. 4 mg/dL [facility] Chloride [Moles/Vol] 100 mmol/L 98 - 10 7 mmol/L [facility] CO2 [Moles/Vol] 23 mmol/L 22 - 30 mmol/L [facility] Creatinine [Mass/Vol] 0.77 mg/dL 0.66 - 1.25 mg/dL [facility] GFR/1.73 sq M.predicted MDRD (S/P/Bld) [Vol rate/Area] - PIN[facility] Comment on above: Calculation based on the Chronic Kidney Disease Epidemiology Collaboration (CKD-EPI) equation refit without adjustment for race Glucose [Mass/Vol] 105 mg/dL High 70 - 100 mg/dL [facility] Interpretation and review of laboratory results Abnormal [facility] Potassium [Moles/Vol] 3.9 mmol/L 3.5 - 5.1 mmol/L [facility] Protein [Mass/Vol] 6.4 g/dL 6.3 - 8.2 g/dL [facility] Sodium [Moles/Vol] 129 mmol/L Low 135 - 145 mmol/L [facility] Urea nitrogen [Mass/Vol] 6 mg/dL Low 9 - 20 mg/dL [facility] CBC panel Auto (Bld)on 04-14 Erythrocyte distribution width (RBC) [Ratio] 13.8 % 11.5 - 14.5 % [facility] Hematocrit (Bld) [Volume fraction] 29.8 % Low 40.0 - 52.0 % [facility] Hemoglobin (Bld) [Mass/Vol] 10.3 g/dL Low 13.0 - 18.0 g/dL [facility] Interpretation and review of laboratory results Abnormal [facility] MCH (RBC) [Entitic mass] 34.0 pg 26.0 - 34.0 pg [facility] MCHC (RBC) [Mass/Vol] 34.6 % 32.0 - 36.0 % [facility] MCV (RBC) [Entitic vol] 98.4 fL High 80.0 - 98.0 fL [facility] Platelet mean volume (Bld) [Entitic vol] 7.4 fL 7.4 - 12.4 fL [facility] Platelets (Bld) [#/Vol] 153 10*3/uL 140 - 440 10*3/uL [facility] RBC (Bld) [#/Vol] 3.03 10*6/uL Low 4.40 - 5.9 0 10*6/uL [facility] WBC (Bld) [#/Vol] 3.5 10*3/uL Low 3.6 - 10.7 10*3/uL [facility] Comprehensive metabolic 1998 panelon 04-14-2023 Albumin [Mass/Vol] 3.5 g/dL 3.5 - 5.0 g/dL [facility] ALP [Catalytic activity/Vol] 65 U/L 38 - 126 U/L [facility] ALT [Catalytic activity/Vol] 61 U/L High 0 - 49 U/L [facility] Anion gap [Moles/Vol] 7 mmol/L 3 - 13 mmol/L [facility] AST [Catalytic activity/Vol] 83 U/L High 15 - 46 U/L [facility] Bilirubin [Mass/Vol] 0.5 mg/dL 0.2 - 1 .3 mg/dL [facility] Calcium [Mass/Vol] 8.4 mg/dL 8.4 - 10. 4 mg/dL [facility] Chloride [Moles/Vol] 97 mmol/L Low 98 - 10 7 mmol/L [facility] CO2 [Moles/Vol] 21 mmol/L Low 22 - 30 mmol/L [facility] Creatinine [Mass/Vol] 0.77 mg/dL 0.66 - 1.25 mg/dL [facility] GFR/1.73 sq M.predicted MDRD (S/P/Bld) [Vol rate/Area] - PINF [facility] Comment on above: Calculation based on the Chronic Kidney Disease Epidemiology Collaboration (CKD-EPI) equation refit without adjustment for race Glucose [Mass/Vol] 95 mg/dL 70 - 100 mg/dL [facility] Interpretation and review of laboratory results Abnormal [facility] Potassium [Moles/Vol] 3.7 mmol/L 3.5 - 5.1 mmol/L [facility] Protein [Mass/Vol] 6.2 g/dL Low 6.3 - 8.2 g/dL [facility] Sodium [Moles/Vol] 125 mmol/L Low 135 - 145 mmol/L [facility] Urea nitrogen [Mass/Vol] 6 mg/dL Low 9 - 20 mg/dL [facility] Laboratory - Chemistry and C hemistry - challengeon 04-14-2023 Magnesium [Mass/Vol] 1.8 mg/dL 1.6 - 2 .3 mg/dL [facility] Magnesium [Mass/Vol]on 04-14 Interpretation and review of laboratory results Normal [facility] CBC panel Auto (Bld)Ordered By: Sandy Nance on 04-13-2023 Erythrocyte distribution width (RBC) [Ratio] 13.7 % 11.5 - 14.5 % [facility] Hematocrit (Bld) [Volume fraction] 29.7 % Low 40.0 - 52.0 % [facility] Hemoglobin (Bld) [Mass/Vol] 10.3 g/dL Low 13.0 - 18.0 g/dL [facility] Interpretation and review of laboratory results Abnormal [facility] MCH (RBC) [Entitic mass] 34.4 pg High 26.0 - 34.0 pg [facility] MCHC (RBC) [Mass/Vol] 34.7 % 32.0 - 36.0 % [facility] MCV (RBC) [Entitic vol] 99.2 fL High 80.0 - 98.0 fL [facility] Platelet mean volume (Bld) [Entitic vol] 8.0 fL 7.4 - 12.4 fL [facility] Platelets (Bld) [#/Vol] 145 10*3/uL 140 - 440 10*3/uL [facility] RBC (Bld) [#/Vol] 2.99 10*6/uL Low 4.40 - 5.9 0 10*6/uL [facility] WBC (Bld) [#/Vol] 3.1 10*3/uL Low 3.6 - 10.7 10*3/uL [facility] Comprehensive metabolic 1998 panelon 04-13-2023 Albumin [Mass/Vol] 3.2 g/dL Low 3.5 - 5.0 g/dL [facility] ALP [Catalytic activity/Vol] 47 U/L 38 - 126 U/L [facility] ALT [Catalytic activity/Vol] 46 U/L 0 - 49 U/L [facility] Anion gap [Moles/Vol] 4 mmol/L 3 - 13 mmol/L [facility] AST [Catalytic activity/Vol] 67 U/L High 15 - 46 U/L [facility] Bilirubin [Mass/Vol] 0.5 mg/dL 0.2 - 1 .3 mg/dL [facility] Calcium [Mass/Vol] 7.9 mg/dL Low 8.4 - 10. 4 mg/dL [facility] Chloride [Moles/Vol] 99 mmol/L 98 - 10 7 mmol/L [facility] CO2 [Moles/Vol] 24 mmol/L 22 - 30 mmol/L [facility] Creatinine [Mass/Vol] 0.76 mg/dL 0.66 - 1.25 mg/dL [facility] GFR/1.73 sq M.predicted MDRD (S/P/Bld) [Vol rate/Area] - PINF [facility] Comment on above: Calculation based on the Chronic Kidney Disease Epidemiology Collaboration (CKD-EPI) equation refit without adjustment for race Glucose [Mass/Vol] 91 mg/dL 70 - 100 mg/dL [facility] Interpretation and review of laboratory results Abnormal [facility] Potassium [Moles/Vol] 3.5 mmol/L 3.5 - 5.1 mmol/L [facility] Protein [Mass/Vol] 5.7 g/dL Low 6.3 - 8.2 g/dL [facility] Sodium [Moles/Vol] 127 mmol/L Low 135 - 145 mmol/L [facility] Urea nitrogen [Mass/Vol] 8 mg/dL Low 9 - 20 mg/dL [facility] Laboratory - Chemistry and C hemistry - challengeOrdered By: Daniel Allen on 06-26-2023 Magnesium [Mass/Vol] 0.9 mg/dL Critically low 1.6 - 2.3 mg/dL [facility] Magnesium [Mass/Vol]Ordered By: Daniel Allen on 04-13-2023 Interpretation and review of laboratory results Abnormal [facility] CBC panel Auto (Bld)Ordered By: Philip Medrano on 04-12-2023 Erythrocyte distribution width (RBC) [Ratio] 14.0 % 11.5 - 14.5 % [facility] Hematocrit (Bld) [Volume fraction] 27.9 % Low 40.0 - 52.0 % [facility] Hemoglobin (Bld) [Mass/Vol] 9.8 g/dL Low 13.0 - 18.0 g/dL [facility] Interpretation and review of laboratory results Abnormal [facility] MCH (RBC) [Entitic mass] 34.7 pg High 26.0 - 34.0 pg [facility] MCHC (RBC) [Mass/Vol] 35.0 % 32.0 - 36.0 % [facility] MCV (RBC) [Entitic vol] 99.1 fL High 80.0 - 98.0 fL [facility] Platelet mean volume (Bld) [Entitic vol] 8.2 fL 7.4 - 12.4 fL [facility] Platelets (Bld) [#/Vol] 134 10*3/uL Low 140 - 440 10*3/uL [facility] RBC (Bld) [#/Vol] 2.82 10*6/uL Low 4.40 - 5.9 0 10*6/uL [facility] WBC (Bld) [#/Vol] 3.1 10*3/uL Low 3.6 - 10.7 10*3/uL [facility] Comprehensive metabolic 1998 panelon 04-12-2023 Albumin [Mass/Vol] 3.2 g/dL Low 3.5 - 5.0 g/dL [facility] ALP [Catalytic activity/Vol] 59 U/L 38 - 126 U/L [facility] ALT [Catalytic activity/Vol] 50 U/L High 0 - 49 U/L [facility] Anion gap [Moles/Vol] 4 mmol/L 3 - 13 mmol/L [facility] AST [Catalytic activity/Vol] 75 U/L High 15 - 46 U/L [facility] Bilirubin [Mass/Vol] 0.3 mg/dL 0.2 - 1 .3 mg/dL [facility] Calcium [Mass/Vol] 8.2 mg/dL Low 8.4 - 10. 4 mg/dL [facility] Chloride [Moles/Vol] 104 mmol/L 98 - 10 7 mmol/L [facility] CO2 [Moles/Vol] 24 mmol/L 22 - 30 mmol/L [facility] Creatinine [Mass/Vol] 0.90 mg/dL 0.66 - 1.25 mg/dL [facility] GFR/1.73 sq M.predicted MDRD (S/P/Bld) [Vol rate/Area] - PINF [facility] Comment on above: Calculation based on the Chronic Kidney Disease Epidemiology Collaboration (CKD-EPI) equation refit without adjustment for race Glucose [Mass/Vol] 97 mg/dL 70 - 100 mg/dL [facility] Interpretation and review of laboratory results Abnormal [facility] Potassium [Moles/Vol] 3.6 mmol/L 3.5 - 5.1 mmol/L [facility] Protein [Mass/Vol] 5.8 g/dL Low 6.3 - 8.2 g/dL [facility] Sodium [Moles/Vol] 131 mmol/L Low 135 - 145 mmol/L [facility] Urea nitrogen [Mass/Vol] 8 mg/dL Low 9 - 20 mg/dL [facility] CBC panel Auto (Bld)Ordered By: Montrell Charles on 04-11-2023 Erythrocyte distribution width (RBC) [Ratio] 14.2 % 11.5 - 14.5 % [facility] Hematocrit (Bld) [Volume fraction] 28.8 % Low 40.0 - 52.0 % [facility] Hemoglobin (Bld) [Mass/Vol] 9.9 g/dL Low 13.0 - 18.0 g/dL [facility] Interpretation and review of laboratory results Abnormal [facility] MCH (RBC) [Entitic mass] 34.6 pg High 26.0 - 34.0 pg [facility] MCHC (RBC) [Mass/Vol] 34.6 % 32.0 - 36.0 % [facility] MCV (RBC) [Entitic vol] 100.0 fL High 80.0 - 98.0 fL [facility] Platelet mean volume (Bld) [Entitic vol] 7.8 fL 7.4 - 12.4 fL [facility] Platelets (Bld) [#/Vol] 119 10*3/uL Low 140 - 440 10*3/uL [facility] RBC (Bld) [#/Vol] 2.88 10*6/uL Low 4.40 - 5.9 0 10*6/uL [facility] WBC (Bld) [#/Vol] 2.3 10*3/uL Low 3.6 - 10.7 10*3/uL [facility] Comprehensive metabolic 1998 panelon 04-11-2023 Albumin [Mass/Vol] 3.2 g/dL Low 3.5 - 5.0 g/dL [facility] ALP [Catalytic activity/Vol] 64 U/L 38 - 126 U/L [facility] ALT [Catalytic activity/Vol] 60 U/L High 0 - 49 U/L [facility] Anion gap [Moles/Vol] 5 mmol/L 3 - 13 mmol/L [facility] AST [Catalytic activity/Vol] 100 U/L High 15 - 46 U/L [facility] Bilirubin [Mass/Vol] 0.4 mg/dL 0.2 - 1 .3 mg/dL [facility] Calcium [Mass/Vol] 8.3 mg/dL Low 8.4 - 10. 4 mg/dL [facility] Chloride [Moles/Vol] 103 mmol/L 98 - 10 7 mmol/L [facility] CO2 [Moles/Vol] 22 mmol/L 22 - 30 mmol/L [facility] Creatinine [Mass/Vol] 0.94 mg/dL 0.66 - 1.25 mg/dL [facility] GFR/1.73 sq M.predicted MDRD (S/P/Bld) [Vol rate/Area] - PINF [facility] Comment on above: Calculation based on the Chronic Kidney Disease Epidemiology Collaboration (CKD-EPI) equation refit without adjustment for race Glucose [Mass/Vol] 89 mg/dL 70 - 100 mg/dL [facility] Interpretation and review of laboratory results Abnormal [facility] Potassium [Moles/Vol] 3.6 mmol/L 3.5 - 5.1 mmol/L [facility] Protein [Mass/Vol] 5.7 g/dL Low 6.3 - 8.2 g/dL [facility] Sodium [Moles/Vol] 130 mmol/L Low 135 - 145 mmol/L [facility] Urea nitrogen [Mass/Vol] 10 mg/dL 9 - 20 mg/dL [facility] [employer] [facility] [employer] No Panel InformationOrdered By: Richie Iniguez on 04-11-2023 P [place] 106 degrees [employer] Work Phone: TX Interval 158 ms [employer] Work Phone: QRS [place] -40 degrees [employer] Work Phone: QRSD Interval 140 ms [employer] Work Phone: QT Interval 368 ms [employer] Work Phone: QTC Interval 485 ms [employer] Work Phone: T Wave [place] 7 degrees [employer] Work Phone: [employer] Work Phone: No Panel Informationon 04-11 SINUS TACHYCARDIA APC RBBB and LAFB Compared to ECG 08/28/2022 19:38:24 there has been no significant interval change Electronically Signed On 04-11-2023 12:14:19 EDT by Richie Iniguez Richie Huff MD - 04/11/2023 IMPRESSION: SINUS TACHYCARDIA APC RBBB and LAFB Compared to ECG 08/28/2022 19:38:24 there has been no significant interval change Electronically Signed On 04-11-2023 12:14:19 EDT by Richie Iniguez [facility] Vital signsOrdered By: Clifton Iniguez on 04-11-2023 Heart rate 104 /min bpm [facility] [employer] Work Phone: Comprehensive metabolic 1998 panelon 04-10-2023 Albumin [Mass/Vol] 3.3 g/dL Low 3.5 - 5.0 g/dL [facility] [employer] ALP [Catalytic activity/Vol] 54 U/L 38 - 126 U/L [facility] [employer] ALT [Catalytic activity/Vol] 62 U/L High 0 - 49 U/L [facility] Anion gap [Moles/Vol] 5 mmol/L 3 - 13 mmol/L [facility] AST [Catalytic activity/Vol] 142 U/L High 15 - 46 U/L [facility] Bilirubin [Mass/Vol] 0.3 mg/dL 0.2 - 1 .3 mg/dL [facility] Calcium [Mass/Vol] 8.2 mg/dL Low 8.4 - 10. 4 mg/dL [facility] Chloride [Moles/Vol] 101 mmol/L 98 - 10 7 mmol/L [facility] CO2 [Moles/Vol] 23 mmol/L 22 - 30 mmol/L [facility] Creatinine [Mass/Vol] 0.94 mg/dL 0.66 - 1.25 mg/dL [facility] GFR/1.73 sq M.predicted MDRD (S/P/Bld) [Vol rate/Area] - PINF [facility] Comment on above: Calculation based on the Chronic Kidney Disease Epidemiology Collaboration (CKD-EPI) equation refit without adjustment for race Glucose [Mass/Vol] 83 mg/dL 70 - 100 mg/dL [facility] Interpretation and review of laboratory results Abnormal [facility] Potassium [Moles/Vol] 4.1 mmol/L 3.5 - 5.1 mmol/L [facility] Protein [Mass/Vol] 6.0 g/dL Low 6.3 - 8.2 g/dL [facility] Sodium [Moles/Vol] 129 mmol/L Low 135 - 145 mmol/L [facility] Urea nitrogen [Mass/Vol] 6 mg/dL Low 9 - 20 mg/dL [facility] Gastrointestinal pathogens p mac SHANE+probe (Stl)Ordered By: Edy Garcia on 04-10-2023 Adenovirus F 40/41 Not detected Not Detected [facility] Astrovirus Not detected Not Detected [facility] Campylobacter Not detected Not Detected [facility] Cryptosporidium Not detected Not Detected [facility] Cyclospora cayetanensis Not detected Not Detected [facility] Entamoeba histolytica Not detected Not Detected [facility] Enterotoxigenic E coli (ETEC) Not detected Not Detected [facility] Giardia lamblia Not detected Not Detected [facility] Interpretation and review of laboratory results Normal [facility] Norovirus GI/GII Not detected Not Detected [facility] Plesiomonas shigelloides Not detected Not Detected [facility] Rotavirus A Not detected Not Detected [facility] Salmonella Not detected Not Detected [facility] Sapovirus Not detected Not Detected [facility] Shiga toxin-producing E coli (STEC) Not detected Not Detected [facility] Shigella/Enteroinvasiv e E coli (EIEC) Not detected Not Detected [facility] Vibrio cholerae Not detected Not Detected [facility] Vibrio species Not detected Not Detected [facility] Yersinia enterocolitica Not detected Not Detected [facility] Methodology: Multipl ex PCR [facility] Laboratory - Chemistry and C hemistry - challengeon 04-10-2023 Sodium (24H U) [Mass/Vol] 41 mmol/L 30 - 90 mmol/L [facility] TSH Qn 3.864 m[IU]/L [facility] Sodium (24H U) [Mass/Vol] 8 mmol/L Low 30 - 90 mmol/L [facility] No Panel Informationon 04-10 Interpretation and review of laboratory results Normal [facility] Interpretation and review of laboratory results Abnormal [facility] OSMOLALITY, URINE 88 Low [facility] Interpretation and review of laboratory results Abnormal [facility] No Panel InformationOrdered By: Gabriela Franco on 04-10-2023 Interpretation and review of laboratory results Abnormal [facility] OSMOLALITY, URINE 230 Low [facility] No Panel InformationOrdered By: Aylin Moran on 04-10-2023 Interpretation and review of laboratory results Normal [facility] OSMOLALITY, SERUM 286 [facility] TSH Qnon 04-10-2023 Interpretation and review of laboratory results Normal [facility] Urinalysis complete panel (U )on 04-10-2023 Bilirubin Ql (U) Negative Negative mg/dL [facility] Clarity (U) Clear Clear [facility] Color (U) Light Yellow Lt. Yellow [facility] Glucose Ql (U) Normal Normal (<70) mg/dL [facility] Hemoglobin Ql (U) Negative Negative mg/dL [facility] Interpretation and review of laboratory results Normal [facility] Ketones (U) [Mass/Vol] Negative Negat zenia mg/dL [facility] Leukocyte esterase Test strip Ql (U) Negative Negative Emma/uL [facility] Nitrite Ql (U) Negative Negative [facility] pH (U) 5.5 [pH] 5.0 - 8.0 pH [facility] Protein (U) [Mass/Vol] Negative Negat zenia mg/dL [facility] Specific gravity (U) [Rel density] 1.006 1.005 - 1.030 [facility] Urobilinogen (U) [Mass/Vol] Normal Normal (0-1) mg/dL [facility] CBC panel Auto (Bld)Ordered By: Sloane Rubin on 04-09-2023 Erythrocyte distribution width (RBC) [Ratio] 12.8 % 11.5 - 14.5 % [facility] Hematocrit (Bld) [Volume fraction] 28.5 % Low 40.0 - 52.0 % [facility] Hemoglobin (Bld) [Mass/Vol] 10.0 g/dL Low 13.0 - 18.0 g/dL [facility] Interpretation and review of laboratory results Abnormal [facility] MCH (RBC) [Entitic mass] 33.9 pg 26.0 - 34.0 pg [facility] MCHC (RBC) [Mass/Vol] 35.1 % 32.0 - 36.0 % [facility] MCV (RBC) [Entitic vol] 96.6 fL 80.0 - 98.0 fL [facility] Platelet mean volume (Bld) [Entitic vol] 9.2 fL 7.4 - 12.4 fL [facility] Platelets (Bld) [#/Vol] 106 10*3/uL Low 140 - 440 10*3/uL [facility] RBC (Bld) [#/Vol] 2.95 10*6/uL Low 4.40 - 5.9 0 10*6/uL [facility] WBC (Bld) [#/Vol] 3.3 10*3/uL Low 3.6 - 10.7 10*3/uL [facility] Comprehensive metabolic 1998 panelon 04-09-2023 Albumin [Mass/Vol] 3.8 g/dL 3.5 - 5.0 g/dL [facility] ALP [Catalytic activity/Vol] 63 U/L 38 - 126 U/L [facility] ALT [Catalytic activity/Vol] 58 U/L High 0 - 49 U/L [facility] Anion gap [Moles/Vol] 12 mmol/L 3 - 13 mmol/L [facility] AST [Catalytic activity/Vol] 103 U/L High 15 - 46 U/L [facility] Bilirubin [Mass/Vol] 0.3 mg/dL 0.2 - 1 .3 mg/dL [facility] Calcium [Mass/Vol] 8.7 mg/dL 8.4 - 10. 4 mg/dL [facility] Chloride [Moles/Vol] 93 mmol/L Low 98 - 10 7 mmol/L [facility] CO2 [Moles/Vol] 19 mmol/L Low 22 - 30 mmol/L [facility] Creatinine [Mass/Vol] 1.04 mg/dL 0.66 - 1.25 mg/dL [facility] GFR/1.73 sq M.predicted MDRD (S/P/Bld) [Vol rate/Area] 80.7 mL/min/{1.73_m2} - PINF [facility] Comment on above: Calculation based on the Chronic Kidney Disease Epidemiology Collaboration (CKD-EPI) equation refit without adjustment for race Glucose [Mass/Vol] 110 mg/dL High 70 - 100 mg/dL [facility] Potassium [Moles/Vol] 3.9 mmol/L 3.5 - 5.1 mmol/L [facility] Protein [Mass/Vol] 6.6 g/dL 6.3 - 8.2 g/dL [facility] Sodium [Moles/Vol] 124 mmol/L Low 135 - 145 mmol/L [facility] Urea nitrogen [Mass/Vol] 9 mg/dL 9 - 20 mg/dL [facility] Ethanol (Bld) [Mass/Vol]on 0 04-09-2023 Ethanol [Mass/Vol] 0.210 g/dL High 0.000 - 0.010 g/dL [facility] Laboratory - Chemistry and C hemistry - challengeon 04-09-2023 Troponin I.cardiac [Mass/Vol] ng/mL 0.000 - 0.034 ng/mL [facility] Lipase [Catalytic activity/Vol] 287 U/L 23 - 300 U/L [facility] Laboratory - Coagulationon 0 04-09-2023 PT Coag (Bld) [Time] 11.3 s 9.0 - 12.[address] [facility] No Panel Informationon 04-09 Interpretation and review of laboratory results Normal [facility] Interpretation and review of laboratory results Abnormal [facility] PT Coag (Bld) [Time]on 04-09 INR Coag (PPP) [Relative time] 1.0 {INR} 0.9 - 1.1 [facility] Comment on above: Recommended Anticoag ulant Therapy: SEE BELOW ----- INR of 2.0 - 3.0 : - Prophylaxis of Venous Thrombosis (high-risk surgery) - Treatment of Venous Thrombosis - Treatment of Pulmonary Embolism (Includes tissue heart valves, Acute Myocardial Infarction to prevent systemic embolism, Valvular Heart Disease, and Atrial Fibrillation) ----- INR of 2.5 - 3.5 : - Mechanical Prosthetic Valves (high risk) - If oral anticoagulant therapy is used to prevent Myocardial Infarction Troponin I.cardiac [Mass/Vol ]on 04-09-2023 Interpretation and review of laboratory results Normal [facility] Patients with high l evels of Biotin oral intake (ie >5 mg/day) may have falsely decreased Troponin levels. [facility] Urinalysis complete panel (U )on 04-09-2023 Bilirubin Ql (U) Negative Negative mg/dL [facility] Clarity (U) Clear Clear [facility] Color (U) Colorless Lt. Yellow [facility] Glucose Ql (U) Normal Normal (<70) mg/dL [facility] Hemoglobin Ql (U) Negative Negative mg/dL [facility] Interpretation and review of laboratory results Abnormal [facility] Ketones (U) [Mass/Vol] Negative Negat zenia mg/dL [facility] Leukocyte esterase Test strip Ql (U) Negative Negative Emma/uL [facility] Nitrite Ql (U) Negative Negative [facility] pH (U) 5.5 [pH] 5.0 - 8.0 pH [facility] Protein (U) [Mass/Vol] Negative Negat zenia mg/dL [facility] Specific gravity (U) [Rel density] 1.002 Low 1.005 - 1.030 [facility] Urobilinogen (U) [Mass/Vol] Normal Normal (0-1) mg/dL [facility] Laboratory - Chemistry and C hemistry - challengeon 04-07-2023 Elastase.pancreatic (Stl) [Mass/Mass] >800 100 - PINF ug/g [facility] Comment on above: REFERENCE INTERVAL: Pancreatic Elastase Fecal by Immunoassay Less than 100 ug/g............Severe insufficiency 100 - 199 ug/g................Moderate insufficiency 200 ug/g or greater...........Normal INTERPRETIVE INFORMATION: Pancreatic Elastase Fecal by Immunoassay Reference intervals do not apply for infants less than one month old. Performed by [email or web address], [address] [place] [id number] [email or web address], Ana Heredia MD, PHD, Lab. Director Glucose [Mass/Vol] 114 mg/dL High 70 - 100 mg/dL [facility] Laboratory - Serology - non- microOrdered By: Adama Arteaga on 04-07-2023 Gliadin IgG IA Qn (S) U/ml NINF - 15.0 U/ml [facility] tTG IgA IA Qn (S) U/mL NINF - 15. 0 U/mL [facility] tTG IgA IA Qn (S) U/mL NINF - 15. 0 U/mL [facility] No Panel Informationon 04-07 [facility] Interpretation and review of laboratory results Abnormal [facility] Performed by: [facility], [address] [place] [address] CLIA ID: [id number] [facility] No Panel InformationOrdered By: Adama Arteaga on 04-07-2023 Deam Gliadin Peptide IgA 0.3 U/ml NINF - 15.0 U/ml [facility] Interpretation and review of laboratory results Normal [facility] TTG Interpretive Information: Results of 15 Units/mL or greater = POSITIVE Results Less than 15 Units/mL = NEGATIVE De[facility] Gliadin Peptide Interpretive Information: Results of 15 Units/mL or greater = POSITIVE Results Less than 15 Units/mL = NEGATIVE [facility] HIV 1+2 Ab+HIV1 p24 Ag IA Ql on 04-06-2023 Interpretation and review of laboratory results Normal [facility] Laboratory - Chemistry and C hemistry - challengeon 04-06-2023 Glucose [Mass/Vol] 164 mg/dL High 70 - 100 mg/dL [facility] - Drug toxicology on 04-06-2023 PHENobarbital [Mass/Vol] 32.1 ug/mL 10.0 - 40.0 ug/mL [facility] - Microbiology an d Antimicrobial susceptibilityon 04-06-2023 HIV 1+2 Ab+HIV1 p24 Ag IA Ql Non-Reactive Nonreactive [facility] Comment on above: The specimen was non -reactive for HIV-1 and HIV-2 antibodies and p24 antigen using an FDA-cleared 4th generation HIV test. Based on this non-reactive screen result, further reflexive testing was not indicated and was, therefore, not performed. No Panel Informationon 04-06 Interpretation and review of laboratory results Abnormal [facility] Performed by: [facility], [address] [place] [address] CLIA ID: [id number] [facility] Interpretation and review of laboratory results Normal [facility] No Panel InformationOrdered By: Beto De La O on 04-06-2023 Case Report Peripheral Smear Corey e: [id number] Authorizing Provider: Inder Stein DO Collected: 04/04/2023 1445 Ordering Location: [address] Received: 04/04/2023 1549 Pathologist: Beto De La O DO Specimen: Blood, Venous [facility] [employer] Phone: Pathologist Interpretation Location [facility], [address] [place] [address], CLIA: [id number]; Joint Commission: [id number]; CAP: [id number] [facility] [employer] Phone: Pathology report final diagnosis Narrative s7dfhCBsHFModTZdDWHlDeose fIbWNRmeLSpL8PhytqrDKlqNQ 9vKH9ixYmecPSlzRAhGDOuZqI px8fda422aQMuq2kvGWJKYMcr IWIELEq8k2vrRBJXmQ2pa9z7l FoeHcPaS337pmsgivGOUXr5bC keBmZqT9hpQ9PqbgeyI760k4z uz6nxgbXfgLG5dLwbWbequOY5 tLLxiUU7WAofz3DitMejxCtcL HafRBArDiGnOQlro0C5QH5nyL E5SScgLOQ4MElrz4IqUY6gIZa 3LWdql5XdjNWguGW6HLlty8An UNYthKwpSPFrdN6wWnUaNEdbg mVsbmZjbjIzXGxldmVsamMwXG wubwVoz9AyjzXouVO9TXrblhB qlJK4nPhfTCDyrG5dWMTeSM81 cRhrpQZ3HUxepL5jSXWyN58wE jFcbGkzNjBcZmktMzYwfXtcbG lzdGxldmVsXGxldmVsbmZjMjN ewLZ3UNhmAuChDzAznDT0WAkx VaRgvMV2IInuzTKhvXC6WHcgu WH8LAy0DTr8NUpoBQ32hXuzoO S9ZNbdmH4hXKTkM38nTgZluDy bXRisLCXbLNY9YP39EFfvb6Dg RDHpdDozHAQrnL9yZjLaZCrzx mVsbmZjbjIzXGxldmVsamMwXG xyydGdx5NaotTgkME6PVxvqgE ouXH2lKquIISjmN9kVRE9DG07 dDpukNZ6NHuwwG9xZBMgE71vC iFxwYefEMBuVKEvWLJ0RM75EJ ocb9KuAQLciWjhMZNefR9lAhT zXGxldmVsbmZjbjIzXGxldmVs vfPySJkbhfZgf1MjeyLtbKY0W FuqjxUzoCM0wYixEXRnyU5ePG NrAB67oBiqmJP8JBtqpX4tDEX lL35jRuSztImyZUJxZVXxBCK7 DI40UWody5MlCOMnoDbgYTYrv A7kOnDlQHabnwVwinLwxgVqGW kqiqUfmzXwCFkydnZfr8MvejY daAQ9IGwocvTpqPA8nSwsJPVy J974ZCqscaTtzvRzXtQmrml4V ZJjKRaoFcW7WBkhwG1lZoX0e1 surYP5gRD8SUdfaVF4AWddYgL cO8raFGQevE3aY64pK9atOWMl jZfrGFlcNVZgtKT1TML7WZGux 1xsZXZlbHRleHRcJzAxXHUtMz kyOSA/B348RSfcatRnmiBxUgI egza3WVNzOTjqIdy4VXexiC1c WfH4d6szhKQ7wRV6IGvqbCU0R AikFfHvI9oeLJLbjC0bB50rP5 efFUCxpLzzWHbsNDUpnNU4SEY 3HHKxn6tzCXQujAXzgNEoOoOw XHUtMzkxMyA/P748IFrfvlChc gXrLlVdhwk8FMJzHPqqMNQ9DG zdaZ0oJmA3i4iuyUM1nCQ8LTg tiJP5XCnxLsOgI6zgIDHdcD1q S14eG0krLHUbyMewSMpsUCQfq TB1GIQ5PJXlw9ohDSRdoIDtcN LfHrBqezb8d2clASZulU59zCT eodX7mRcdZmjjlKL2TGBaYnlw MzYwfXtcbGlzdGxldmVsXGxld aHkgkRtJlDinQQ2IPtnUrFuHp JpdLW7RRnmZfPycTY0NXhodIF bkHN4BSxbvVJ9XLp8YWp2PCus TNa9PYO8RnsyWrk8w5dqMMXhz O95yTClnoZ0gXeqJ5donCVqWx DjKruqHjOlbQ92a6qmWDvod1E ogvGqkheuJRGjFkzmc8waFOzs l1ScsaPawcecVDxuhFA6sPR2F XSpBQNfPmBfwKwxeP13WGGmxA HuZ569fqNmXQxzIE64LIPmrSN bscYbRsXgRLHnnYLefEU6PVEv TJ0vanugYWzvEKqeVCRcurM0T ELafIRwB0PzUGNmEZ1annxgSI Q0XSyaNZMtPQX0HeNmQXDdl1V izlf1FgEpoOBiZJjjyZRevfou czIwIFBlcmlwaGVyYWwgQmxvb 4VdJ23xCSC0DCgbBCDilJcyTh QkSgypPsInXQlhuiV6YDbmgnD pjKr0wPAkkNmfdR4pLzPwIXYI IS7cgXPolYUzsKThn7l3fZIeA OSgb2BvznfhWXMjg1wulxtrXR Krd8l0nNTkmkP1gXKrpMXqrSA qCE2gZXByr57llVQhDNj5fXHu n7ZsjffrRNVlCLEcy0V8eEmqH E1vzt7mO3shx46hLqCpruQjkD XhLOIqKNC2lCSjpQFeO8x4o1K rtsezRwKraJHeJNV5zSMrx3A5 YIcjlcKpFAAas4Tav9LxTNEar 35mNCyan2ZjEU73rFMbrNrqdz DySRWaQuocsGFoJ6lzylltiN2 qAVF8qI0kEJJ9mCWdLSS6PVKj ySP7NYVeTOYcQNJ0npIvkiMcl 5WzkZ1efG2kNW8fTAmmdPLmYD RsDLRgxDM3QNXvl9AcnZZ9oS5 yPB0rINVlmCJtq3IwKBVpi10v OVRwbcRIbYZbxGPhFQ3xMCS5r 1seFZ91xD4eo5urc5zrNBAzIO Mbm5AmkMDixmSlIsypIT7gyIA yfQ== [employer] Work Phone: [place] [facility] Work Phone: Basic metabolic 1998 panelon 04-04-2023 Anion gap [Moles/Vol] 9 mmol/L 3 - 13 mmol/L [facility] [employer] Calcium [Mass/Vol] 8.3 mg/dL Low 8.4 - 10. 4 mg/dL [facility] [employer] Chloride [Moles/Vol] 99 mmol/L 98 - 10 7 mmol/L [facility] CO2 [Moles/Vol] 21 mmol/L Low 22 - 30 mmol/L [facility] Creatinine [Mass/Vol] 0.82 mg/dL 0.66 - 1.25 mg/dL [facility] GFR/1.73 sq M.predicted MDRD (S/P/Bld) [Vol rate/Area] - PINF [facility] Comment on above: Calculation based on the Chronic Kidney Disease Epidemiology Collaboration (CKD-EPI) equation refit without adjustment for race Glucose [Mass/Vol] 188 mg/dL High 70 - 100 mg/dL [facility] Interpretation and review of laboratory results Abnormal [facility] Potassium [Moles/Vol] 3.6 mmol/L 3.5 - 5.1 mmol/L [facility] Sodium [Moles/Vol] 128 mmol/L Low 135 - 145 mmol/L [facility] Urea nitrogen [Mass/Vol] 7 mg/dL Low 9 - 20 mg/dL [facility] Cobalamin (Vitamin B12) [Mas s/Vol]on 04-04-2023 Interpretation and review of laboratory results Normal [facility] Gastrointestinal pathogens p mac SHANE+probe (Stl)Ordered By: Albert Reid on 04-04-2023 Adenovirus F 40/41 Not detected Not Detected [facility] Astrovirus Not detected Not Detected [facility] Campylobacter Not detected Not Detected [facility] Cryptosporidium Not detected Not Detected [facility] Cyclospora cayetanensis Not detected Not Detected [facility] Entamoeba histolytica Not detected Not Detected [facility] Enterotoxigenic E coli (ETEC) Not detected Not Detected [facility] Giardia lamblia Not detected Not Detected [facility] Interpretation and review of laboratory results Normal [facility] Norovirus GI/GII Not detected Not Detected [facility] Plesiomonas shigelloides Not detected Not Detected [facility] Rotavirus A Not detected Not Detected [facility] Salmonella Not detected Not Detected [facility] Sapovirus Not detected Not Detected [facility] Shiga toxin-producing E coli (STEC) Not detected Not Detected [facility] Shigella/Enteroinvasiv e E coli (EIEC) Not detected Not Detected [facility] Vibrio cholerae Not detected Not Detected [facility] Vibrio species Not detected Not Detected [facility] Yersinia enterocolitica Not detected Not Detected [facility] Methodology: Multipl ex PCR [facility] HCV Ab IA QlOrdered By: Luisana Ayala on 04-04-2023 Interpretation and review of laboratory results Abnormal [facility] HbA1c (Bld) [Mass fraction]o n 04-04-2023 Average glucose Estimated from glycated hemoglobin (Bld) [Mass/Vol] 88 mg/dL [facility] Laboratory - Chemistry and C hemistry - challengeon 04-04-2023 Cobalamin (Vitamin B12) [Mass/Vol] 605 pg/mL 239 - 931 pg/mL [facility] TSH Qn 0.787 m[IU]/L [facility] Beta hydroxybutyrate [Mass/Vol] 5.35 mg/dL High 0.20 - 2.81 mg/dL [facility] Laboratory - Hematology and Cell countson 04-04-2023 HbA1c (Bld) [Mass fraction] 4.7 % NINF - 5.7 % [facility] Comment on above: Normal less than 5.7 % Prediabetes 5.7% to 6.4% Diabetes 6.5% or higher --HgbA1C levels may not be accurate in patients who have renal disease, received recent blood transfusions, are anemic, or who have dyshemoglobinemia. Laboratory - Microbiology an d Antimicrobial susceptibilityOrdered By: Quynh Ayala on 04-04-2023 HCV Ab IA Ql Detected Abnormal Not Detected [facility] Comment on above: Patients with DETECT ED Hepatitis C Ab results should have a new specimen submitted for supplemental testing with a Hepatitis C Quantitative RNA assay (viral load), if clinically indicated. No Panel Informationon 04-04 Interpretation and review of laboratory results Abnormal [facility] TSH Qnon 04-04-2023 Interpretation and review of laboratory results Normal [facility] XR Chest Single viewon 04-04 No acute process. Report Dictated on Electronically Signed By: Frankie Lambert Electronically Signed Date/Time: 04/04/2023 1:49 PM T [facility] RADIOLOGY SYSTEM Patient Name: WOODY NI : 1960 Exam Date/Time: 04/04/2023 08:56 Procedure: XR CHEST 1 VIEW Ordering Provider: STEIN JAREK Reason For Exam: Unintentional weight loss, hx of smoking PORTABLE CHEST: INDICATION: Weight loss COMPARISON: 06/24/2020 Obtained at 0 850 hours. A single portable AP radiograph of the chest was obtained. The heart is normal in size. The mediastinal silhouette is normal. The lungs are clear. There are no effusions or infiltrates. There is no pleural thickening. Arthritic changes of the spine and shoulders are present. [facility] Frankie Lambert DO - 04/04/2023 [facility] Name: [facility] NI : 1960 [id number] Exam Date/Time: 04/04/2023 08:56 Procedure: XR CHEST 1 VIEW Ordering Provider: STEIN JAREK Reason For Exam: Unintentional weight loss, hx of smoking PORTABLE CHEST: INDICATION: Weight loss COMPARISON: 06/24/2020 Obtained at 0 850 hours. A single portable AP radiograph of the chest was obtained. The heart is normal in size. The mediastinal silhouette is normal. The lungs are clear. There are no effusions or infiltrates. There is no pleural thickening. Arthritic changes of the spine and shoulders are present. IMPRESSION: No acute process. Report Dictated on Electronically Signed By: Frankie Lambert Electronically Signed Date/Time: 04/04/2023 1:49 PM EDT [facility] Radiology Study observation (narrative) [facility] [employer] XR Chest Single viewOrdered By: Frankie Lambert on 04-04-2023 [facility] [employer] Work Phone: CBC W Auto Differential pane l (Bld)Ordered By: Perla Garcia on 04-02-2023 Basophils (Bld) [#/Vol] 0.0 10*3/uL 0.0 - 0.2 10*3/uL [facility] [employer] Basophils/100 WBC (Bld) 0.0 % 0.0 - 2.0 % [facility] Eosinophils (Bld) [#/Vol] 0.0 10*3/uL 0.0 - 0.5 10*3/uL [facility] [employer] Eosinophils/100 WBC (Bld) 0.0 % Low 1.0 - 6.0 % [facility] Erythrocyte distribution width (RBC) [Ratio] 13.0 % 11.5 - 14.5 % [facility] Hematocrit (Bld) [Volume fraction] 31.7 % Low 40.0 - 52.0 % [facility] Hemoglobin (Bld) [Mass/Vol] 11.4 g/dL Low 13.0 - 18.0 g/dL [facility] Immature granulocytes (Bld) [#/Vol] 0.0 10*3/uL NINF - 0.0 10*3/uL [facility] Immature granulocytes/100 WBC (Bld) 0.8 % High NINF - 0.0 % [facility] Interpretation and review of laboratory results Abnormal [facility] Lymphocytes (Bld) [#/Vol] 0.7 10*3/uL Low 1.0 - 4.3 10*3/uL [facility] Lymphocytes/100 WBC (Bld) 28.7 % 20.0 - 40.0 % [facility] MCH (RBC) [Entitic mass] 34.2 pg High 26.0 - 34.0 pg [facility] MCHC (RBC) [Mass/Vol] 36.0 % 32.0 - 36.0 % [facility] MCV (RBC) [Entitic vol] 95.2 fL 80.0 - 98.0 fL [facility] Monocytes (Bld) [#/Vol] 0.1 10*3/uL 0.0 - 0.8 10*3/uL [facility] Monocytes/100 WBC (Bld) 4.3 % 2.0 - 10.0 % [facility] Neutrophils (Bld) [#/Vol] 1.7 10*3/uL Low 1.8 - 7.0 10*3/uL [facility] Neutrophils/100 WBC (Bld) 66.2 % 40.0 - 80.0 % [facility] Platelet mean volume (Bld) [Entitic vol] 9.0 fL 7.4 - 12.4 fL [facility] Platelets (Bld) [#/Vol] 93 10*3/uL Low 140 - 440 10*3/uL [facility] RBC (Bld) [#/Vol] 3.33 10*6/uL Low 4.40 - 5.9 0 10*6/uL [facility] WBC (Bld) [#/Vol] 2.5 10*3/uL Low 3.6 - 10.7 10*3/uL [facility] CRP [Mass/Vol]on 04-02-2023 Interpretation and review of laboratory results Normal [facility] Comprehensive metabolic 1998 panelon 04-02-2023 Albumin [Mass/Vol] 4.3 g/dL 3.5 - 5.0 g/dL [facility] ALP [Catalytic activity/Vol] 79 U/L 38 - 126 U/L [facility] ALT [Catalytic activity/Vol] 89 U/L High 0 - 49 U/L [facility] Anion gap [Moles/Vol] 16 mmol/L High 3 - 13 mmol/L [facility] AST [Catalytic activity/Vol] 208 U/L High 15 - 46 U/L [facility] Bilirubin [Mass/Vol] 0.7 mg/dL 0.2 - 1 .3 mg/dL [facility] Calcium [Mass/Vol] 8.8 mg/dL 8.4 - 10. 4 mg/dL [facility] Chloride [Moles/Vol] 100 mmol/L 98 - 10 7 mmol/L [facility] CO2 [Moles/Vol] 18 mmol/L Low 22 - 30 mmol/L [facility] Creatinine [Mass/Vol] 0.86 mg/dL 0.66 - 1.25 mg/dL [facility] GFR/1.73 sq M.predicted MDRD (S/P/Bld) [Vol rate/Area] - PINF [facility] Comment on above: Calculation based on the Chronic Kidney Disease Epidemiology Collaboration (CKD-EPI) equation refit without adjustment for race Glucose [Mass/Vol] 111 mg/dL High 70 - 100 mg/dL [facility] Potassium [Moles/Vol] 4.3 mmol/L 3.5 - 5.1 mmol/L [facility] Protein [Mass/Vol] 7.3 g/dL 6.3 - 8.2 g/dL [facility] Sodium [Moles/Vol] 134 mmol/L Low 135 - 145 mmol/L [facility] Urea nitrogen [Mass/Vol] 4 mg/dL Low 9 - 20 mg/dL [facility] Ethanol (Bld) [Mass/Vol]Orde red By: Diane Urbina on 04-02-2023 Ethanol [Mass/Vol] 0.352 g/dL Critically high 0.000 - 0.010 g/dL [facility] Interpretation and review of laboratory results Abnormal [facility] Laboratory - Chemistry and C hemistry - challengeon 04-02-2023 CO2 [Moles/Vol] 19.0 mmol/L Low 24.0 - 28.0 mmol/L [facility] HCO3 (Bld) [Moles/Vol] 18.4 mmol/L Low 23.0 - 27.0 mmol/L [facility] Oxygen (Bld) [Partial pressure] 168 mm[Hg] High [facility] pH (Bld) 7.363 [pH] 7.330 - 7.430 [facility] CRP [Mass/Vol] mg/L NINF - 10.0 mg/L [facility] Lipase [Catalytic activity/Vol] 365 U/L High 23 - 300 U/L [facility] Laboratory - Drug toxicology Ordered By: Ashly Okeefe on 04-02-2023 Amphetamines Screen method >1000 ng/mL Ql (U) Negative [facility] Barbiturates Screen method >200 ng/mL Ql (U) Positive [facility] Benzodiazepines Ql (U) Negative [facility] Methadone Screen Ql (U) Negative [facility] Opiates Screen Ql (U) Negative [facility] oxyCODONE Ql (U) Negative [facility] Phencyclidine Ql (U) Negative [facility] Laboratory - Microbiology an d Antimicrobial susceptibilityon 04-02-2023 SARS-CoV-2 (COVID-19) Ag IA.rapid Ql (Resp) Negative Negative [facility] Comment on above: A negative result do es not rule out the possibility of SARS-CoV-2 infection. NAAT-based methods should be considered for symptomatic patients presenting greater than seven days after onset of symptoms. Method: Lateral flow immunoassay. Fact sheets for healthcare providers and patients can be found at the following sites: https://www.fda.gov/media/076592/download https://www.fda.gov/media/922970/download No Panel InformationOrdered By: Ashly Okeefe on 04-02-2023 COCAINE METAB. SCREEN Negative [facility] The expected value f or all of the drugs listed above is Negative. The following drugs or drug groups have been screened for by Immunoassay at the following thresholds: Amphetamine class (1000 ng/mL) Barbiturates (200 ng/mL) Benzodiazepines (200 ng/mL) Cocaine (300 ng/mL) Methadone (300 ng/mL) Opiates (300 ng/mL) Oxycodone (100 ng/mL) PCP (25 ng/mL) NOTE: These results are for medical treatment only. Analysis performed using non-forensic procedures. POSITIVE results are NOT confirmed by a more specific alternative method unless requested. If confirmation is needed, request confirmation under separate order. [facility] No Panel Informationon 04-02 BASE EXCESS -7.0 mmol/L Low -3.0 - 3.0 mmol/L [facility] Interpretation and review of laboratory results Abnormal [facility] pCO2 32 Low [facility] Source Of Oxygen Room Air [facility] Interpretation and review of laboratory results Abnormal [facility] Radiology Study observation (narrative) [facility] SARS-CoV-2 (COVID-19) Ag IA. rapid Ql (Resp)on 04-02-2023 Interpretation and review of laboratory results Normal [facility] US Abdomenon 04-02-2023 1. Diffuse hepatic steatosis. No acute finding. Report Dictated on Electronically Signed By: Ruperto Wheeler Electronically Signed Date/Time: 04/02/2023 5:54 PM [facility] RAD[facility] Patient Name: WOODY NI : 1960 [id number] Exam Date/Time: 04/02/2023 17:47 Procedure: US ABDOMEN COMPLETE Ordering Provider: BERMUDEZ NISHIT Reason For Exam: Evaluate aorta, right upper quadrant, kidneys. Abdominal pain COMPLETE ULTRASOUND OF THE ABDOMEN CLINICAL INDICATION: Evaluate aorta, right upper quadrant, kidneys. Abdominal pain TECHNIQUE: Real-time ultrasound of the abdomen. COMPARISON: 02/12/2023 FINDINGS: Liver shows diffuse hepatic steatosis. No focal lesion seen. No biliary tree dilatation. Gallbladder surgically absent. Common bile duct is 8.5 mm. Pancreas poorly seen secondary to overlying bowel gas. Normal kidneys measuring 11.0 x 5.2 x 6.4 cm on the right and 11.6 x 5.5 x 4.6 cm on the left. Spleen measures 9.0 x 5.1 x 7.7 cm and shows no focal lesion though evaluation is limited secondary to positioning. Visualized portions of aorta and IVC unremarkable. Proximal aorta difficult to visualize secondary to bowel gas. [facility] Ruperto Wheeler MD - 04/02/2023 Patient Name: WOODY NI : 1960 [facility]#: [id number] Exam Date/Time: 04/02/2023 17:47 Procedure: US ABDOMEN COMPLETE Ordering Provider: BERMUDEZ NISHIT Reason For Exam: Evaluate aorta, right upper quadrant, kidneys. Abdominal pain COMPLETE ULTRASOUND OF THE ABDOMEN CLINICAL INDICATION: Evaluate aorta, right upper quadrant, kidneys. Abdominal pain TECHNIQUE: Real-time ultrasound of the abdomen. COMPARISON: 02/12/2023 FINDINGS: Liver shows diffuse hepatic steatosis. No focal lesion seen. No biliary tree dilatation. Gallbladder surgically absent. Common bile duct is 8.5 mm. Pancreas poorly seen secondary to overlying bowel gas. Normal kidneys measuring 11.0 x 5.2 x 6.4 cm on the right and 11.6 x 5.5 x 4.6 cm on the left. Spleen measures 9.0 x 5.1 x 7.7 cm and shows no focal lesion though evaluation is limited secondary to positioning. Visualized portions of aorta and IVC unremarkable. Proximal aorta difficult to visualize secondary to bowel gas. IMPRESSION: 1. Diffuse hepatic steatosis. No acute finding. Report Dictated on Electronically Signed By: Ruperto Wheeler Electronically Signed Date/Time: 04/02/2023 5:54 PM EDT [facility] [employer] US AbdomenOrdered By: Ruperto díaz on 04-02-2023 [employer] Work Phone: Urinalysis complete panel (U )on 04-02-2023 Bilirubin Ql (U) Negative Negative mg/dL [facility] [employer] Clarity (U) Clear Clear [facility] [employer] Color (U) Colorless Lt. Yellow [facility] [employer] Glucose Ql (U) Normal Normal (<70) mg/dL [facility] [employer] Hemoglobin Ql (U) Negative Negative mg/dL [facility] [employer] Interpretation and review of laboratory results Abnormal [facility] Ketones (U) [Mass/Vol] Negative Negat zenia mg/dL [facility] Leukocyte esterase Test strip Ql (U) Negative Negative Emma/uL [facility] [employer] Nitrite Ql (U) Negative Negative [facility] pH (U) 5.0 [pH] 5.0 - 8.0 pH [facility] Protein (U) [Mass/Vol] Negative Negat zenia mg/dL [facility] Specific gravity (U) [Rel density] 1.002 Low 1.005 - 1.030 [facility] Urobilinogen (U) [Mass/Vol] Normal Normal (0-1) mg/dL [facility] Vital signson 04-02-2023 Oxygen saturation in Blood 99.0 % High 60.0 - 80.0 % [facility] XR Chest View and Abdomen [place] 04-02-2023 1. No acute finding. Possible ingested pill or other foreign body lower right hemipelvis. Report Dictated on Electronically Signed By: Ruperto Wheeler Electronically Signed Date/Time: 04/02/2023 6:15 PM EDT [facility] [employer] [facility] Patient Name: WOODY NI : 1960 Exam Date/Time: 04/02/2023 18:06 Procedure: XR ABDOMEN 2 VIEWS WITH CHEST 1 VIEW Ordering Provider: BERMUDEZ NISHIT Reason For Exam: abdominal pain ACUTE ABDOMINAL SERIES CLINICAL INDICATION: abdominal pain TECHNIQUE: AP and upright or decubitus views of the abdomen, frontal view of the chest. COMPARISON: None FINDINGS: Lungs are clear. No pleural effusion or pneumothorax. No vascular congestion. Heart size normal. No free intraperitoneal gas seen. Nonspecific bowel gas pattern. [place] density in the lower right hemipelvis could represent an ingested pill or other foreign body measuring about 12 x 4.[address] [facility] Ruperto Wheeler MD - 04/02/2023 Patient Name: WOODY NI : 1960 Exam Date/Time: 04/02/2023 18:06 Procedure: XR ABDOMEN 2 VIEWS WITH CHEST 1 VIEW Ordering Provider: BERMUDEZ NISHIT Reason For Exam: abdominal pain ACUTE ABDOMINAL SERIES CLINICAL INDICATION: abdominal pain TECHNIQUE: AP and upright or decubitus views of the abdomen, frontal view of the chest. COMPARISON: None FINDINGS: Lungs are clear. No pleural effusion or pneumothorax. No vascular congestion. Heart size normal. No free intraperitoneal gas seen. Nonspecific bowel gas pattern. [place] density in the lower right hemipelvis could represent an ingested pill or other foreign body measuring about 12 x 4.5 mm. IMPRESSION: 1. No acute finding. Possible ingested pill or other foreign body lower right hemipelvis. Report Dictated on Electronically Signed By: Ruperto Wheeler Electronically Signed Date/Time: 04/02/2023 6:15 PM EDT [employer] XR Chest View and Abdomen [place] and UprightOrdered By: Ruperto Wheeler on 04-02-2023 [employer] Work Phone: Basic metabolic 1998 panelon 02-14-2023 Anion gap [Moles/Vol] 0 mmol/L Low 3 - 13 mmol/L [facility] [employer] Calcium [Mass/Vol] 9.6 mg/dL 8.4 - 10. 4 mg/dL [facility] [employer] Chloride [Moles/Vol] 103 mmol/L 98 - 10 7 mmol/L [facility] [employer] CO2 [Moles/Vol] 24 mmol/L 22 - 30 mmol/L [facility] [employer] Creatinine [Mass/Vol] 1.23 mg/dL 0.66 - 1.25 mg/dL [facility] [employer] GFR/1.73 sq M.predicted MDRD (S/P/Bld) [Vol rate/Area] 66.0 mL/min/{1.73_m2} - PINF [facility] Comment on above: Calculation based on the Chronic Kidney Disease Epidemiology Collaboration (CKD-EPI) equation refit without adjustment for race Glucose [Mass/Vol] 91 mg/dL 70 - 100 mg/dL [facility] Interpretation and review of laboratory results Abnormal [facility] [employer] Potassium [Moles/Vol] 4.4 mmol/L 3.5 - 5.1 mmol/L [facility] [employer] Sodium [Moles/Vol] 128 mmol/L Low 135 - 145 mmol/L [facility] [employer] Urea nitrogen [Mass/Vol] 15 mg/dL 9 - 20 mg/dL [facility] [employer] Laboratory - Chemistry and C hemistry - challengeon 02-13-2023 Sodium [Moles/Vol] 128 mmol/L Low 135 - 145 mmol/L [facility] Sodium (24H U) [Mass/Vol] mmol/L Low 30 - 90 mmol/L [facility] Sodium [Moles/Vol] 125 mmol/L Low 135 - 145 mmol/L [facility] No Panel Informationon 02-13 Interpretation and review of laboratory results Abnormal [facility] Interpretation and review of laboratory results Abnormal [facility] Interpretation and review of laboratory results Abnormal [facility] No Panel InformationOrdered By: Aminta Ackerman on 02-13-2023 Interpretation and review of laboratory results Abnormal [facility] OSMOLALITY, URINE 111 Low [facility] Basic metabolic 1998 panelon 02-12-2023 Anion gap [Moles/Vol] 5 mmol/L 3 - 13 mmol/L [facility] Calcium [Mass/Vol] 8.3 mg/dL Low 8.4 - 10. 4 mg/dL [facility] Chloride [Moles/Vol] 100 mmol/L 98 - 10 7 mmol/L [facility] CO2 [Moles/Vol] 20 mmol/L Low 22 - 30 mmol/L [facility] Creatinine [Mass/Vol] 1.36 mg/dL High 0.66 - 1.25 mg/dL [facility] GFR/1.73 sq M.predicted MDRD (S/P/Bld) [Vol rate/Area] 58.5 mL/min/{1.73_m2} Low - PINF [facility] Comment on above: Calculation based on the Chronic Kidney Disease Epidemiology Collaboration (CKD-EPI) equation refit without adjustment for race Glucose [Mass/Vol] 104 mg/dL High 70 - 100 mg/dL [facility] Interpretation and review of laboratory results Abnormal [facility] Potassium [Moles/Vol] 4.5 mmol/L 3.5 - 5.1 mmol/L [facility] Sodium [Moles/Vol] 125 mmol/L Low 135 - 145 mmol/L [facility] Urea nitrogen [Mass/Vol] 15 mg/dL 9 - 20 mg/dL [facility] CBC panel Auto (Bld)Ordered By: Sandy Nance on 02-12-2023 Erythrocyte distribution width (RBC) [Ratio] 13.7 % 11.5 - 14.5 % [facility] Hematocrit (Bld) [Volume fraction] 28.3 % Low 40.0 - 52.0 % [facility] Hemoglobin (Bld) [Mass/Vol] 9.8 g/dL Low 13.0 - 18.0 g/dL [facility] Interpretation and review of laboratory results Abnormal [facility] MCH (RBC) [Entitic mass] 33.9 pg 26.0 - 34.0 pg [facility] MCHC (RBC) [Mass/Vol] 34.8 % 32.0 - 36.0 % [facility] MCV (RBC) [Entitic vol] 97.4 fL 80.0 - 98.0 fL [facility] Platelet mean volume (Bld) [Entitic vol] 8.2 fL 7.4 - 12.4 fL [facility] Platelets (Bld) [#/Vol] 79 10*3/uL Low 140 - 440 10*3/uL [facility] RBC (Bld) [#/Vol] 2.91 10*6/uL Low 4.40 - 5.9 0 10*6/uL [facility] WBC (Bld) [#/Vol] 2.3 10*3/uL Low 3.6 - 10.7 10*3/uL [facility] Comprehensive metabolic 1998 panelon 02-12-2023 Albumin [Mass/Vol] 3.4 g/dL Low 3.5 - 5.0 g/dL [facility] ALP [Catalytic activity/Vol] 57 U/L 38 - 126 U/L [facility] ALT [Catalytic activity/Vol] 86 U/L High 0 - 49 U/L [facility] Anion gap [Moles/Vol] 2 mmol/L Low 3 - 13 mmol/L [facility] AST [Catalytic activity/Vol] 123 U/L High 15 - 46 U/L [facility] Bilirubin [Mass/Vol] 0.7 mg/dL 0.2 - 1 .3 mg/dL [facility] Calcium [Mass/Vol] 8.0 mg/dL Low 8.4 - 10. 4 mg/dL [facility] Chloride [Moles/Vol] 100 mmol/L 98 - 10 7 mmol/L [facility] CO2 [Moles/Vol] 23 mmol/L 22 - 30 mmol/L [facility] Creatinine [Mass/Vol] 1.53 mg/dL High 0.66 - 1.25 mg/dL [facility] GFR/1.73 sq M.predicted MDRD (S/P/Bld) [Vol rate/Area] 50.8 mL/min/{1.73_m2} Low - PINF [facility] Comment on above: Calculation based on the Chronic Kidney Disease Epidemiology Collaboration (CKD-EPI) equation refit without adjustment for race Glucose [Mass/Vol] 94 mg/dL 70 - 100 mg/dL [facility] Interpretation and review of laboratory results Abnormal [facility] Potassium [Moles/Vol] 4.0 mmol/L 3.5 - 5.1 mmol/L [facility] Protein [Mass/Vol] 5.8 g/dL Low 6.3 - 8.2 g/dL [facility] Sodium [Moles/Vol] 124 mmol/L Low 135 - 145 mmol/L [facility] Urea nitrogen [Mass/Vol] 13 mg/dL 9 - 20 mg/dL [facility] Free T3 [Mass/Vol]on 023 Interpretation and review of laboratory results Normal [facility] Free T4 [Mass/Vol]on 023 Free T4 Dialysis [Mass/Vol] 1.83 ng/dL 0.78 - 2.19 ng/dL [facility] Interpretation and review of laboratory results Normal [facility] Laboratory - Chemistry and C hemistry - challengeon 02-12-2023 Sodium [Moles/Vol] 124 mmol/L Low 135 - 145 mmol/L [facility] Free T3 [Mass/Vol] 2.81 pg/mL 2.77 - 5. 27 pg/mL [facility] Sodium [Moles/Vol] 124 mmol/L Low 135 - 145 mmol/L [facility] No Panel Informationon 02-12 Interpretation and review of laboratory results Abnormal [facility] Interpretation and review of laboratory results Abnormal [facility] US Abdomenon 02-12-2023 1. No acute sonograp hic abnormality identified. 2. Hepatic steatosis. 3. Thinning of the renal cortex, which could relate to medical renal disease. Report Dictated on Electronically Signed By: Cuco Melara Electronically Signed Date/Time: 02/12/2023 9:44 AM [facility] RADIOLOGY SYSTEM Patient Name: WOODY NI : 1960 [id number] Exam Date/Time: 02/12/2023 08:56 Procedure: US ABDOMEN COMPLETE Ordering Provider: CALLAWAY JONATHAN Reason For Exam: Epigastric pain EXAMINATION: Complete abdominal ultrasound. EXAM DATE & TIME: 02/12/2023 8:56 AM EDT INDICATION: Epigastric pain ADDITIONAL INFORMATION: 63-year-old male with epigastric pain presents for evaluation COMPARISON: Gallbladder ultrasound dated 08/28/[address] abdomen pelvis dated 12/22/2022 LIMITATIONS: As below TECHNIQUE: Ultrasound real-time scan with image documentation of the abdominal contents was performed. Color Doppler imaging was also employed. FINDINGS: LIVER Echogenicity: There is increased hepatic parenchymal echogenicity and coarsening of the hepatic parenchymal echotexture. Surface nodularity: Not visualized. Masses (size and location): None. GALLBLADDER The gallbladder is surgically absent. Pericholecystic fluid: None. Sonographic Ortiz's sign: Negative. BILE DUCTS Intrahepatic ducts: No biliary dilation Common bile duct: Normal caliber. Diameter: 5 mm PANCREAS The imaged portion of the pancreatic head is unremarkable. Visualization of the body and tail is limited due to overlying bowel gas artifact. RIGHT KIDNEY Size: 10.6 x 5.4 x 5.5 cm Renal cortex: There is thinning of the renal cortex. Hydronephrosis: None. Calculi, cysts or masses: None. LEFT KIDNEY Size: 11.2 x 5.6 x 6.1 cm Renal cortex: There is thinning of the renal cortex. Hydronephrosis: None. Calculi, cysts or masses: None. SPLEEN Size: 11.5 x 6.0 x 6.1 cm Parenchyma: Unremarkable. VESSELS Aorta: Visualized portions are unremarkable. IVC: Visualized portions are unremarkable. OTHER FINDINGS None. [facility] Cuco Melara MD - 02/12/2023 Patient Name: WOODY NI : 1960 Exam Date/Time: 02/12/2023 08:56 Procedure: US ABDOMEN COMPLETE Ordering Provider: CALLAWAY JONATHAN Reason For Exam: Epigastric pain EXAMINATION: Complete abdominal ultrasound. EXAM DATE & TIME: 02/12/2023 8:56 AM EDT INDICATION: Epigastric pain ADDITIONAL INFORMATION: 63-year-old male with epigastric pain presents for evaluation COMPARISON: Gallbladder ultrasound dated 08/28/[address] abdomen pelvis dated 12/22/2022 LIMITATIONS: As below TECHNIQUE: Ultrasound real-time scan with image documentation of the abdominal contents was performed. Color Doppler imaging was also employed. FINDINGS: LIVER Echogenicity: There is increased hepatic parenchymal echogenicity and coarsening of the hepatic parenchymal echotexture. Surface nodularity: Not visualized. Masses (size and location): None. GALLBLADDER The gallbladder is surgically absent. Pericholecystic fluid: None. Sonographic Ortiz's sign: Negative. BILE DUCTS Intrahepatic ducts: No biliary dilation Common bile duct: Normal caliber. Diameter: 5 mm PANCREAS The imaged portion of the pancreatic head is unremarkable. Visualization of the body and tail is limited due to overlying bowel gas artifact. RIGHT KIDNEY Size: 10.6 x 5.4 x 5.5 cm Renal cortex: There is thinning of the renal cortex. Hydronephrosis: None. Calculi, cysts or masses: None. LEFT KIDNEY Size: 11.2 x 5.6 x 6.1 cm Renal cortex: There is thinning of the renal cortex. Hydronephrosis: None. Calculi, cysts or masses: None. SPLEEN Size: 11.5 x 6.0 x 6.1 cm Parenchyma: Unremarkable. VESSELS Aorta: Visualized portions are unremarkable. IVC: Visualized portions are unremarkable. OTHER FINDINGS None. IMPRESSION: 1. No acute sonographic abnormality identified. 2. Hepatic steatosis. 3. Thinning of the renal cortex, which could relate to medical renal disease. Report Dictated on Electronically Signed By: Cuco Melara Electronically Signed Date/Time: 02/12/2023 9:44 AM EDT [facility] Study observation (narrative) [employer] US AbdomenOrdered By: Remigio Melara on 02-12-2023 [employer] Work Phone: Basic metabolic 1998 panelon 02-11-2023 Anion gap [Moles/Vol] 8 mmol/L 3 - 13 mmol/L [facility] Calcium [Mass/Vol] 7.6 mg/dL Low 8.4 - 10. 4 mg/dL [facility] Chloride [Moles/Vol] 94 mmol/L Low 98 - 10 7 mmol/L [facility] CO2 [Moles/Vol] 20 mmol/L Low 22 - 30 mmol/L [facility] Creatinine [Mass/Vol] 1.36 mg/dL High 0.66 - 1.25 mg/dL [facility] GFR/1.73 sq M.predicted MDRD (S/P/Bld) [Vol rate/Area] 58.5 mL/min/{1.73_m2} Low - PINF [facility] Comment on above: Calculation based on the Chronic Kidney Disease Epidemiology Collaboration (CKD-EPI) equation refit without adjustment for race Glucose [Mass/Vol] 87 mg/dL 70 - 100 mg/dL [facility] Interpretation and review of laboratory results Abnormal [facility] Potassium [Moles/Vol] 4.2 mmol/L 3.5 - 5.1 mmol/L [facility] Sodium [Moles/Vol] 121 mmol/L Low 135 - 145 mmol/L [facility] Urea nitrogen [Mass/Vol] 13 mg/dL 9 - 20 mg/dL [facility] Slightly hemolyzed [facility] Anion gap [Moles/Vol] 10 mmol/L 3 - 13 mmol/L [facility] Calcium [Mass/Vol] 8.4 mg/dL 8.4 - 10. 4 mg/dL [facility] Chloride [Moles/Vol] 88 mmol/L Low 98 - 10 7 mmol/L [facility] CO2 [Moles/Vol] 21 mmol/L Low 22 - 30 mmol/L [facility] Creatinine [Mass/Vol] 1.35 mg/dL High 0.66 - 1.25 mg/dL [facility] GFR/1.73 sq M.predicted MDRD (S/P/Bld) [Vol rate/Area] 59.0 mL/min/{1.73_m2} Low - PINF [facility] Comment on above: Calculation based on the Chronic Kidney Disease Epidemiology Collaboration (CKD-EPI) equation refit without adjustment for race Glucose [Mass/Vol] 126 mg/dL High 70 - 100 mg/dL [facility] Interpretation and review of laboratory results Abnormal [facility] Potassium [Moles/Vol] 3.8 mmol/L 3.5 - 5.1 mmol/L [facility] Sodium [Moles/Vol] 120 mmol/L Low 135 - 145 mmol/L [facility] Urea nitrogen [Mass/Vol] 13 mg/dL 9 - 20 mg/dL [facility] C. difficile toxin genes SHANE +probe Ql (Stl)on 02-11-2023 C. difficile toxin PCR Not detected Not Detecte d [facility] Interpretation and review of laboratory results Normal [facility] C. difficile infecti on is unlikely to be present. Methodology: Real-time PCR [facility] CBC W Auto Differential pane l (Bld)Ordered By: Montrell Charles on 02-11-2023 Basophils (Bld) [#/Vol] 0.0 10*3/uL 0.0 - 0.2 10*3/uL [facility] Basophils/100 WBC (Bld) 0.5 % 0.0 - 2.0 % [facility] Eosinophils (Bld) [#/Vol] 0.0 10*3/uL 0.0 - 0.5 10*3/uL [facility] Eosinophils/100 WBC (Bld) 0.6 % Low 1.0 - 6.0 % [facility] Erythrocyte distribution width (RBC) [Ratio] 13.5 % 11.5 - 14.5 % [facility] Hematocrit (Bld) [Volume fraction] 28.1 % Low 40.0 - 52.0 % [facility] Hemoglobin (Bld) [Mass/Vol] 9.4 g/dL Low 13.0 - 18.0 g/dL [facility] Interpretation and review of laboratory results Abnormal [facility] Lymphocytes (Bld) [#/Vol] 0.6 10*3/uL Low 1.0 - 4.3 10*3/uL [facility] Lymphocytes/100 WBC (Bld) 24.3 % 20.0 - 40.0 % [facility] MCH (RBC) [Entitic mass] 32.7 pg 26.0 - 34.0 pg [facility] MCHC (RBC) [Mass/Vol] 33.5 % 32.0 - 36.0 % [facility] MCV (RBC) [Entitic vol] 97.9 fL 80.0 - 98.0 fL [facility] Monocytes (Bld) [#/Vol] 0.4 10*3/uL 0.0 - 0.8 10*3/uL [facility] Monocytes/100 WBC (Bld) 15.9 % High 2.0 - 10.0 % [facility] Neutrophils (Bld) [#/Vol] 1.4 10*3/uL Low 1.8 - 7.0 10*3/uL [facility] Neutrophils/100 WBC (Bld) 58.7 % 40.0 - 80.0 % [facility] Nucleated RBC/100 WBC (Bld) [Ratio] 0.1 % [facility] Platelet mean volume (Bld) [Entitic vol] 8.6 fL 7.4 - 12.4 fL [facility] Platelets (Bld) [#/Vol] 77 10*3/uL Low 140 - 440 10*3/uL [facility] RBC (Bld) [#/Vol] 2.87 10*6/uL Low 4.40 - 5.9 0 10*6/uL [facility] WBC (Bld) [#/Vol] 2.4 10*3/uL Low 3.6 - 10.7 10*3/uL [facility] Gastrointestinal pathogens p mac SHANE+probe (Stl)Ordered By: Nikos Mcdonough on 02-11-2023 Adenovirus F 40/41 Not detected Not Detected [facility] Astrovirus Not detected Not Detected [facility] Campylobacter Not detected Not Detected [facility] Cryptosporidium Not detected Not Detected [facility] Cyclospora cayetanensis Not detected Not Detected [facility] Entamoeba histolytica Not detected Not Detected [facility] Enterotoxigenic E coli (ETEC) Not detected Not Detected [facility] Giardia lamblia Not detected Not Detected [facility] Interpretation and review of laboratory results Normal [facility] Norovirus GI/GII Not detected Not Detected [facility] Plesiomonas shigelloides Not detected Not Detected [facility] Rotavirus A Not detected Not Detected [facility] Salmonella Not detected Not Detected [facility] Sapovirus Not detected Not Detected [facility] Shiga toxin-producing E coli (STEC) Not detected Not Detected [facility] Shigella/Enteroinvasiv e E coli (EIEC) Not detected Not Detected [facility] Vibrio cholerae Not detected Not Detected [facility] Vibrio species Not detected Not Detected [facility] Yersinia enterocolitica Not detected Not Detected [facility] Methodology: Multipl ex PCR [facility] Iron and Iron binding capaci ty panelon 02-11-2023 Interpretation and review of laboratory results Abnormal [facility] Iron [Mass/Vol] 89 ug/dL 49 - 181 ug/dL [facility] Iron binding capacity [Mass/Vol] 237 ug/dL Low 261 - 497 ug/dL [facility] Iron saturation [Mass fraction] 38 % 15 - 50 % [facility] Laboratory - Chemistry and C hemistry - challengeon 02-11-2023 Sodium [Moles/Vol] 121 mmol/L Low 135 - 145 mmol/L [facility] Sodium [Moles/Vol] 121 mmol/L Low 135 - 145 mmol/L [facility] TSH Qn 4.885 m[IU]/L High [facility] Sodium (24H U) [Mass/Vol] 7 mmol/L Low 30 - 90 mmol/L [facility] Glucose [Mass/Vol] 89 mg/dL 70 - 100 mg/dL [facility] No Panel Informationon 02-11 Interpretation and review of laboratory results Abnormal [facility] Interpretation and review of laboratory results Abnormal [facility] Interpretation and review of laboratory results Abnormal [facility] Interpretation and review of laboratory results Normal [facility] Performed by: Hanna Hernandez [facility], [address] [place] [address] CLIA ID: [id number] [facility] No Panel InformationOrdered By: Ophelia Mane on 02-11-2023 Interpretation and review of laboratory results Abnormal [facility] OSMOLALITY, URINE 143 Low [facility] TSH Qnon 02-11-2023 Interpretation and review of laboratory results Abnormal [facility] Urinalysis complete panel (U )on 02-11-2023 Bilirubin Ql (U) Negative Negative mg/dL [facility] Clarity (U) Clear Clear [facility] Color (U) Light Yellow Lt. Yellow [facility] Glucose Ql (U) Normal Normal (<70) mg/dL [facility] Hemoglobin Ql (U) Negative Negative mg/dL [facility] Interpretation and review of laboratory results Normal [facility] Ketones (U) [Mass/Vol] Negative Negat zenia mg/dL [facility] Leukocyte esterase Test strip Ql (U) Negative Negative Emma/uL [facility] Nitrite Ql (U) Negative Negative [facility] pH (U) 6.0 [pH] 5.0 - 8.0 pH [facility] Protein (U) [Mass/Vol] Negative Negat zenia mg/dL [facility] Specific gravity (U) [Rel density] 1.005 1.005 - 1.030 [facility] Urobilinogen (U) [Mass/Vol] Normal Normal (0-1) mg/dL [facility] CBC W Auto Differential pane l (Bld)Ordered By: Ashly Okeefe on 02-10-2023 Basophils (Bld) [#/Vol] 0.0 10*3/uL 0.0 - 0.2 10*3/uL [facility] Basophils/100 WBC (Bld) 0.2 % 0.0 - 2.0 % [facility] Eosinophils (Bld) [#/Vol] 0.0 10*3/uL 0.0 - 0.5 10*3/uL [facility] Eosinophils/100 WBC (Bld) 0.2 % Low 1.0 - 6.0 % [facility] Erythrocyte distribution width (RBC) [Ratio] 12.2 % 11.5 - 14.5 % [facility] Hematocrit (Bld) [Volume fraction] 32.1 % Low 40.0 - 52.0 % [facility] Hemoglobin (Bld) [Mass/Vol] 11.7 g/dL Low 13.0 - 18.0 g/dL [facility] Immature granulocytes (Bld) [#/Vol] 0.1 10*3/uL High NINF - 0.0 10*3/uL [facility] Immature granulocytes/100 WBC (Bld) 1.8 % High NINF - 0.0 % [facility] Interpretation and review of laboratory results Abnormal [facility] Lymphocytes (Bld) [#/Vol] 0.7 10*3/uL Low 1.0 - 4.3 10*3/uL [facility] Lymphocytes/100 WBC (Bld) 13.5 % Low 20.0 - 40.0 % [facility] MCH (RBC) [Entitic mass] 32.9 pg 26.0 - 34.0 pg [facility] MCHC (RBC) [Mass/Vol] 36.4 % High 32.0 - 36.0 % [facility] MCV (RBC) [Entitic vol] 90.2 fL 80.0 - 98.0 fL [facility] Monocytes (Bld) [#/Vol] 0.6 10*3/uL 0.0 - 0.8 10*3/uL [facility] Monocytes/100 WBC (Bld) 12.9 % High 2.0 - 10.0 % [facility] Neutrophils (Bld) [#/Vol] 3.5 10*3/uL 1.8 - 7.0 10*3/uL [facility] Neutrophils/100 WBC (Bld) 71.4 % 40.0 - 80.0 % [facility] Platelet mean volume (Bld) [Entitic vol] 9.6 fL 7.4 - 12.4 fL [facility] Comment on above: MPV is a calculated measurement using platelet volume ratio Platelets (Bld) [#/Vol] 108 10*3/uL Low 140 - 440 10*3/uL [facility] RBC (Bld) [#/Vol] 3.56 10*6/uL Low 4.40 - 5.9 0 10*6/uL [facility] WBC (Bld) [#/Vol] 4.9 10*3/uL 3.6 - 10.7 10*3/uL [facility] Comprehensive metabolic 1998 panelon 02-10-2023 Albumin [Mass/Vol] 4.6 g/dL 3.5 - 5.0 g/dL [facility] ALP [Catalytic activity/Vol] 80 U/L 38 - 126 U/L [facility] ALT [Catalytic activity/Vol] 121 U/L High 0 - 49 U/L [facility] Anion gap [Moles/Vol] 14 mmol/L High 3 - 13 mmol/L [facility] AST [Catalytic activity/Vol] 148 U/L High 15 - 46 U/L [facility] Bilirubin [Mass/Vol] 1.3 mg/dL 0.2 - 1 .3 mg/dL [facility] Calcium [Mass/Vol] 9.0 mg/dL 8.4 - 10. 4 mg/dL [facility] Chloride [Moles/Vol] 84 mmol/L Low 98 - 10 7 mmol/L [facility] CO2 [Moles/Vol] 19 mmol/L Low 22 - 30 mmol/L [facility] Creatinine [Mass/Vol] 1.50 mg/dL High 0.66 - 1.25 mg/dL [facility] GFR/1.73 sq M.predicted MDRD (S/P/Bld) [Vol rate/Area] 52.0 mL/min/{1.73_m2} Low - PINF [facility] Comment on above: Calculation based on the Chronic Kidney Disease Epidemiology Collaboration (CKD-EPI) equation refit without adjustment for race Glucose [Mass/Vol] 151 mg/dL High 70 - 100 mg/dL [facility] Interpretation and review of laboratory results Abnormal [facility] Potassium [Moles/Vol] 3.8 mmol/L 3.5 - 5.1 mmol/L [facility] Protein [Mass/Vol] 7.7 g/dL 6.3 - 8.2 g/dL [facility] Sodium [Moles/Vol] 118 mmol/L Critically low 135 - 1 45 mmol/L [facility] Urea nitrogen [Mass/Vol] 13 mg/dL 9 - 20 mg/dL [facility] Laboratory - Chemistry and C hemistry - challengeon 02-10-2023 Lipase [Catalytic activity/Vol] 152 U/L 23 - 300 U/L [facility] Laboratory - Coagulationon 0 02-10-2023 PT Coag (Bld) [Time] 12.3 s High 9.0 - 12.[address] [facility] Lipase [Catalytic activity/V ol]on 02-10-2023 Interpretation and review of laboratory results Normal [facility] PT Coag (Bld) [Time]on 02-10 INR Coag (PPP) [Relative time] 1.1 {INR} 0.9 - 1.1 [facility] Comment on above: Recommended Anticoag ulant Therapy: SEE BELOW ----- INR of 2.0 - 3.0 : - Prophylaxis of Venous Thrombosis (high-risk surgery) - Treatment of Venous Thrombosis - Treatment of Pulmonary Embolism (Includes tissue heart valves, Acute Myocardial Infarction to prevent systemic embolism, Valvular Heart Disease, and Atrial Fibrillation) ----- INR of 2.5 - 3.5 : - Mechanical Prosthetic Valves (high risk) - If oral anticoagulant therapy is used to prevent Myocardial Infarction Interpretation and review of laboratory results Abnormal [facility] Urinalysis complete panel (U )on 02-10-2023 Bilirubin Ql (U) Negative Negative mg/dL [facility] Clarity (U) Clear Clear [facility] Color (U) Light Yellow Lt. Yellow [facility] Glucose Ql (U) Normal Normal (<70) mg/dL [facility] Hemoglobin Ql (U) Negative Negative mg/dL [facility] Interpretation and review of laboratory results Normal [facility] Ketones (U) [Mass/Vol] Negative Negat zenia mg/dL [facility] Leukocyte esterase Test strip Ql (U) Negative Negative Emma/uL [facility] Nitrite Ql (U) Negative Negative [facility] pH (U) 5.5 [pH] 5.0 - 8.0 pH [facility] Protein (U) [Mass/Vol] Negative Negat zenia mg/dL [facility] Specific gravity (U) [Rel density] 1.008 1.005 - 1.030 [facility] Urobilinogen (U) [Mass/Vol] Normal Normal (0-1) mg/dL [facility] CNCOon 01-21-2023 CNCO Letter Text Normal [facility] Laboratory - Chemistry and C hemistry - challengeon 01-05-2023 Glucose [Mass/Vol] 169 mg/dL High 70 - 100 mg/dL [facility] Glucose [Mass/Vol] 114 mg/dL High 70 - 100 mg/dL [facility] No Panel Informationon 01-05 Interpretation and review of laboratory results Abnormal [facility] Performed by: [facility], [address] [place] [address] CLIA ID: [id number] [facility] Interpretation and review of laboratory results Abnormal [facility] Performed by: [facility], [address] [place] [address] CLIA ID: [id number] [facility] Basic metabolic 1998 panelon 12-25-2022 Anion gap [Moles/Vol] 5 mmol/L 3 - 13 mmol/L [facility] Calcium [Mass/Vol] 8.7 mg/dL 8.4 - 10. 4 mg/dL [facility] Chloride [Moles/Vol] 102 mmol/L 98 - 10 7 mmol/L [facility] CO2 [Moles/Vol] 23 mmol/L 22 - 30 mmol/L [facility] Creatinine [Mass/Vol] 1.36 mg/dL High 0.66 - 1.25 mg/dL [facility] GFR/1.73 sq M.predicted MDRD (S/P/Bld) [Vol rate/Area] 58.8 mL/min/{1.73_m2} Low - PINF [facility] Comment on above: Calculation based on the Chronic Kidney Disease Epidemiology Collaboration (CKD-EPI) equation refit without adjustment for race Glucose [Mass/Vol] 110 mg/dL High 70 - 100 mg/dL [facility] Interpretation and review of laboratory results Abnormal [facility] Potassium [Moles/Vol] 4.0 mmol/L 3.5 - 5.1 mmol/L [facility] Sodium [Moles/Vol] 131 mmol/L Low 135 - 145 mmol/L [facility] Urea nitrogen [Mass/Vol] 13 mg/dL 9 - 20 mg/dL [facility] Slightly Hemolyzed [facility] Laboratory - Coagulationon 0 12-25-2022 aPTT Coag (PPP) [Time] 24.2 s 20.0 - 30.5 s [facility] INR Coag (PPP) [Relative time] 1.2 {INR} High 0.9 - 1.1 [facility] Comment on above: Recommended Anticoag ulant Therapy: SEE BELOW ----- INR of 2.0 - 3.0 : - Prophylaxis of Venous Thrombosis (high-risk surgery) - Treatment of Venous Thrombosis - Treatment of Pulmonary Embolism (Includes tissue heart valves, Acute Myocardial Infarction to prevent systemic embolism, Valvular Heart Disease, and Atrial Fibrillation) ----- INR of 2.5 - 3.5 : - Mechanical Prosthetic Valves (high risk) - If oral anticoagulant therapy is used to prevent Myocardial Infarction PT Coag (Bld) [Time] 12.6 s High 9.0 - 12.[address] [facility] No Panel Informationon 12-25 Interpretation and review of laboratory results Abnormal [facility] Bacteria identified Cx Nom ( U)Ordered By: Ann Perry on 12-24-2022 Interpretation and review of laboratory results Normal [facility] Bilirubin.indirect [Mass/Vol ]on 12-24-2022 Bilirubin.conjugated [Mass/Vol] 0.0 mg/dL 0.0 - 0.3 mg/dL [facility] Interpretation and review of laboratory results Normal [facility] CBC panel Auto (Bld)Ordered By: Montrell Charles on 12-24-2022 Erythrocyte distribution width (RBC) [Ratio] 13.2 % 11.5 - 14.5 % [facility] Hematocrit (Bld) [Volume fraction] 34.9 % Low 40.0 - 52.0 % [facility] Hemoglobin (Bld) [Mass/Vol] 11.7 g/dL Low 13.0 - 18.0 g/dL [facility] Interpretation and review of laboratory results Abnormal [facility] MCH (RBC) [Entitic mass] 33.4 pg 26.0 - 34.0 pg [facility] MCHC (RBC) [Mass/Vol] 33.6 % 32.0 - 36.0 % [facility] MCV (RBC) [Entitic vol] 99.2 fL High 80.0 - 98.0 fL [facility] Platelet mean volume (Bld) [Entitic vol] 8.6 fL 7.4 - 12.4 fL [facility] Platelets (Bld) [#/Vol] 70 10*3/uL Low 140 - 440 10*3/uL [facility] RBC (Bld) [#/Vol] 3.52 10*6/uL Low 4.40 - 5.9 0 10*6/uL [facility] WBC (Bld) [#/Vol] 2.5 10*3/uL Low 3.6 - 10.7 10*3/uL [facility] Comprehensive metabolic 1998 panelon 12-24-2022 Albumin [Mass/Vol] 3.8 g/dL 3.5 - 5.0 g/dL [facility] ALP [Catalytic activity/Vol] 52 U/L 38 - 126 U/L [facility] ALT [Catalytic activity/Vol] 169 U/L High 0 - 49 U/L [facility] Anion gap [Moles/Vol] 5 mmol/L 3 - 13 mmol/L [facility] AST [Catalytic activity/Vol] 141 U/L High 15 - 46 U/L [facility] Bilirubin [Mass/Vol] 1.4 mg/dL High 0.2 - 1 .3 mg/dL [facility] Calcium [Mass/Vol] 9.0 mg/dL 8.4 - 10. 4 mg/dL [facility] Chloride [Moles/Vol] 101 mmol/L 98 - 10 7 mmol/L [facility] CO2 [Moles/Vol] 22 mmol/L 22 - 30 mmol/L [facility] Creatinine [Mass/Vol] 2.09 mg/dL High 0.66 - 1.25 mg/dL [facility] GFR/1.73 sq M.predicted MDRD (S/P/Bld) [Vol rate/Area] 35.1 mL/min/{1.73_m2} Low - PINF [facility] Comment on above: Calculation based on the Chronic Kidney Disease Epidemiology Collaboration (CKD-EPI) equation refit without adjustment for race Glucose [Mass/Vol] 89 mg/dL 70 - 100 mg/dL [facility] Interpretation and review of laboratory results Abnormal [facility] Potassium [Moles/Vol] 3.7 mmol/L 3.5 - 5.1 mmol/L [facility] Protein [Mass/Vol] 6.4 g/dL 6.3 - 8.2 g/dL [facility] Sodium [Moles/Vol] 129 mmol/L Low 135 - 145 mmol/L [facility] Urea nitrogen [Mass/Vol] 21 mg/dL High 9 - 20 mg/dL [facility] Laboratory - Chemistry and C hemistry - challengeon 12-24-2022 Glucose [Mass/Vol] 115 mg/dL High 70 - 100 mg/dL [facility] Glucose [Mass/Vol] 98 mg/dL 70 - 100 mg/dL [facility] Glucose [Mass/Vol] 136 mg/dL High 70 - 100 mg/dL [facility] Glucose [Mass/Vol] 87 mg/dL 70 - 100 mg/dL [facility] Laboratory - Microbiology an d Antimicrobial susceptibilityOrdered By: Ann Perry on 12-24-2022 Bacteria identified Cx Nom (U) No growth (<1,000 CFU/mL) [facility] No Panel Informationon 12-24 Interpretation and review of laboratory results Abnormal [facility] Performed by: [facility], [address] [place] [address] CLIA ID: [id number] [facility] Interpretation and review of laboratory results Normal [facility] Performed by: [facility], [address] [place] [address] CLIA ID: [id number] [facility] Interpretation and review of laboratory results Abnormal [facility] Performed by: [facility], [address] [facility] [address] CLIA ID: [id number] [facility] Interpretation and review of laboratory results Normal [facility] Performed by: [facility], [address] [place] [address] CLIA ID: [id number] [facility] Basic metabolic 1998 panelOr dered By: Daniel Allen on 12-23-2022 Anion gap [Moles/Vol] 7 mmol/L 3 - 13 mmol/L [facility] Calcium [Mass/Vol] 8.6 mg/dL 8.4 - 10. 4 mg/dL [facility] Chloride [Moles/Vol] 103 mmol/L 98 - 10 7 mmol/L [facility] CO2 [Moles/Vol] 18 mmol/L Low 22 - 30 mmol/L [facility] Creatinine [Mass/Vol] 5.24 mg/dL High 0.66 - 1.25 mg/dL [facility] GFR/1.73 sq M.predicted MDRD (S/P/Bld) [Vol rate/Area] 11.7 mL/min/{1.73_m2} Low - PINF [facility] Comment on above: Calculation based on the Chronic Kidney Disease Epidemiology Collaboration (CKD-EPI) equation refit without adjustment for race Glucose [Mass/Vol] 78 mg/dL 70 - 100 mg/dL [facility] Interpretation and review of laboratory results Abnormal [facility] Potassium [Moles/Vol] 4.3 mmol/L 3.5 - 5.1 mmol/L [facility] Sodium [Moles/Vol] 128 mmol/L Low 135 - 145 mmol/L [facility] Urea nitrogen [Mass/Vol] 41 mg/dL High 9 - 20 mg/dL [facility] CBC W Auto Differential pane l (Bld)Ordered By: Philip Medrano on 12-23-2022 Basophils (Bld) [#/Vol] 0.0 10*3/uL 0.0 - 0.2 10*3/uL [facility] Basophils/100 WBC (Bld) 0.5 % 0.0 - 2.0 % [facility] Eosinophils (Bld) [#/Vol] 0.1 10*3/uL 0.0 - 0.5 10*3/uL [facility] Eosinophils/100 WBC (Bld) 2.3 % 1.0 - 6.0 % [facility] Erythrocyte distribution width (RBC) [Ratio] 12.9 % 11.5 - 14.5 % [facility] Hematocrit (Bld) [Volume fraction] 33.8 % Low 40.0 - 52.0 % [facility] Hemoglobin (Bld) [Mass/Vol] 11.3 g/dL Low 13.0 - 18.0 g/dL [facility] [employer] Lymphocytes (Bld) [#/Vol] 1.2 10*3/uL 1.0 - 4.3 10*3/uL [facility] Lymphocytes/100 WBC (Bld) 39.2 % 20.0 - 40.0 % [facility] MCH (RBC) [Entitic mass] 33.4 pg 26.0 - 34.0 pg [facility] [employer] MCHC (RBC) [Mass/Vol] 33.5 % 32.0 - 36.0 % [facility] MCV (RBC) [Entitic vol] 99.5 fL High 80.0 - 98.0 fL [facility] Monocytes (Bld) [#/Vol] 0.5 10*3/uL 0.0 - 0.8 10*3/uL [facility] Monocytes/100 WBC (Bld) 15.1 % High 2.0 - 10.0 % [facility] Neutrophils (Bld) [#/Vol] 1.3 10*3/uL Low 1.8 - 7.0 10*3/uL [facility] Neutrophils/100 WBC (Bld) 42.9 % 40.0 - 80.0 % [facility] [employer] Nucleated RBC/100 WBC (Bld) [Ratio] 0.0 % [facility] [employer] Platelet mean volume (Bld) [Entitic vol] 8.5 fL 7.4 - 12.4 fL [facility] [employer] Platelets (Bld) [#/Vol] 56 10*3/uL Low 140 - 440 10*3/uL [facility] RBC (Bld) [#/Vol] 3.39 10*6/uL Low 4.40 - 5.9 0 10*6/uL [facility] WBC (Bld) [#/Vol] 3.1 10*3/uL Low 3.6 - 10.7 10*3/uL [facility] [employer] Creatinine (U) [Mass/Vol]on 12-23-2022 CREATININE, URINE 34.6 mg/dL No Range [facility] Laboratory - Chemistry and C hemistry - challengeon 12-23-2022 Glucose [Mass/Vol] 82 mg/dL 70 - 100 mg/dL [facility] [employer] Glucose [Mass/Vol] 83 mg/dL 70 - 100 mg/dL [facility] Urea nitrogen (U) [Mass/Vol] 153 mg/dL No Range [facility] Chloride (U) [Moles/Vol] 51 mmol/L 19 - 209 mmol/L [facility] Sodium (24H U) [Mass/Vol] 30 mmol/L 30 - 90 mmol/L [facility] Glucose [Mass/Vol] 144 mg/dL High 70 - 100 mg/dL [facility] Glucose [Mass/Vol] 71 mg/dL 70 - 100 mg/dL [facility] Glucose [Mass/Vol] 72 mg/dL 70 - 100 mg/dL [facility] Laboratory - Urinalysison Protein (U) [Mass/Vol] 16 mg/dL High 0 - 12 mg/dL [facility] Manual differential performe d Ql (Bld)on 12-23-2022 Anisocytosis Ql (Bld) Slight Abnormal (none) [facility] Giant platelets LM Ql (Bld) Rare Abnormal (none) [facility] Leukocyte morphology finding Nom (Bld) Normal [facility] Ovalocytes LM Ql (Bld) Slight Abnormal (none) [facility] No Panel Informationon 12-23 Interpretation and review of laboratory results Normal [facility] Performed by: [facility], [address] [place] [address] CLIA ID: [id number] [facility] Interpretation and review of laboratory results Normal [facility] Performed by: [facility], [address] [place] [address] CLIA ID: [id number] [facility] Interpretation and review of laboratory results Normal [facility] Interpretation and review of laboratory results Abnormal [facility] Interpretation and review of laboratory results Abnormal [facility] Performed by: [facility], [address] [place] [id number] CLIA ID: [id number] [facility] Interpretation and review of laboratory results Normal [facility] Performed by: [facility], [address] [place] [address] CLIA ID: [id number] [facility] Interpretation and review of laboratory results Normal [facility] Performed by: [facility], [address] [place] [address] CLIA ID: [id number] [facility] No Panel InformationOrdered By: Philip Medrano on 12-23-2022 Interpretation and review of laboratory results Abnormal [facility] Urinalysis complete panel (U )Ordered By: Aminta Ackerman on 12-23-2022 Bilirubin Ql (U) Negative Negative mg/dL [facility] Clarity (U) Clear Clear [facility] Color (U) Colorless Lt. Yellow [facility] Glucose Ql (U) Normal Normal (<70) mg/dL [facility] Hemoglobin Ql (U) Negative Negative mg/dL [facility] Interpretation and review of laboratory results Abnormal [facility] Ketones (U) [Mass/Vol] Negative Negat zenia mg/dL [facility] Leukocyte esterase Test strip Ql (U) Negative Negative Emma/uL [facility] Nitrite Ql (U) Negative Negative [facility] pH (U) 5.0 [pH] 5.0 - 8.0 pH [facility] Protein (U) [Mass/Vol] Negative Negat zenia mg/dL [facility] Specific gravity (U) [Rel density] 1.004 Low 1.005 - 1.030 [facility] Urobilinogen (U) [Mass/Vol] Normal Normal (0-1) mg/dL [facility] CBC W Auto Differential pane l (Bld)Ordered By: Ashly Okeefe on 12-22-2022 Basophils (Bld) [#/Vol] 0.0 10*3/uL 0.0 - 0.2 10*3/uL [facility] Basophils/100 WBC (Bld) 0.6 % 0.0 - 2.0 % [facility] Eosinophils (Bld) [#/Vol] 0.1 10*3/uL 0.0 - 0.5 10*3/uL [facility] Eosinophils/100 WBC (Bld) 1.6 % 1.0 - 6.0 % [facility] Erythrocyte distribution width (RBC) [Ratio] 11.9 % 11.5 - 14.5 % [facility] Hematocrit (Bld) [Volume fraction] 35.8 % Low 40.0 - 52.0 % [facility] Hemoglobin (Bld) [Mass/Vol] 12.3 g/dL Low 13.0 - 18.0 g/dL [facility] Immature granulocytes (Bld) [#/Vol] 0.0 10*3/uL NINF - 0.0 10*3/uL [facility] Immature granulocytes/100 WBC (Bld) 0.8 % High NINF - 0.0 % [facility] Interpretation and review of laboratory results Abnormal [facility] Lymphocytes (Bld) [#/Vol] 1.4 10*3/uL 1.0 - 4.3 10*3/uL [facility] Lymphocytes/100 WBC (Bld) 27.7 % 20.0 - 40.0 % [facility] MCH (RBC) [Entitic mass] 33.6 pg 26.0 - 34.0 pg [facility] MCHC (RBC) [Mass/Vol] 34.4 % 32.0 - 36.0 % [facility] MCV (RBC) [Entitic vol] 97.8 fL 80.0 - 98.0 fL [facility] Monocytes (Bld) [#/Vol] 0.7 10*3/uL 0.0 - 0.8 10*3/uL [facility] Monocytes/100 WBC (Bld) 13.6 % High 2.0 - 10.0 % [facility] Neutrophils (Bld) [#/Vol] 2.7 10*3/uL 1.8 - 7.0 10*3/uL [facility] Neutrophils/100 WBC (Bld) 55.7 % 40.0 - 80.0 % [facility] Platelet mean volume (Bld) [Entitic vol] 10.5 fL 7.4 - 12.4 fL [facility] Platelets (Bld) [#/Vol] 76 10*3/uL Low 140 - 440 10*3/uL [facility] RBC (Bld) [#/Vol] 3.66 10*6/uL Low 4.40 - 5.9 0 10*6/uL [facility] WBC (Bld) [#/Vol] 4.9 10*3/uL 3.6 - 10.7 10*3/uL [facility] This is an appended report. These results have been appended to a previously verified report. [employer] CT Abdomen WO contraston Patient Name: WOODY NI : 1960 Exam Date/Time: 12/22/2022 19:41 Procedure: CT ABDOMEN PELVIS WO IV CONTRAST Ordering Provider: MARIN MATTHEW Reason For Exam: Nausea/vomiting CT ABDOMEN AND PELVIS WITHOUT IV CONTRAST CLINICAL INDICATION: Nausea and vomiting TECHNIQUE: Multidetector spiral transaxial sequence was performed through the abdomen and pelvis. Images were reconstructed at 3 mm slice width at 3 mm interval. Dose reduction was employed with automated exposure control. COMPARISON:05/15/2022 CT abdomen and pelvis FINDINGS: Exam quality: This examination is limited for the evaluation of solid organs and vascular structures due to the lack of intravenous contrast. Lower chest: Mild bibasilar atelectasis without evidence of pleural effusion or focal consolidation. The heart is normal in size without evidence of pericardial effusion. The distal esophagus is unremarkable. Liver: The liver is normal in size without evidence of focal liver lesion. Biliary tree: Intrahepatic and extrahepatic ducts are nondilated. Gallbladder: The gallbladder is nondistended and without evidence of radiopaque stones. Pancreas: The pancreas appears unremarkable without evidence of ductal dilatation or mass. Spleen: The spleen is enlarged measuring 14 cm in length. Adrenals: Bilateral adrenal glands appear normal. Kidneys: The bilateral kidneys are normal in size. There are two 3 mm nonobstructing calculi in the superior pole of the right kidney. No evidence of hydroureteronephrosis or ureterolithiasis. Bladder: The bladder is decompressed limiting evaluation. Pelvic organs/viscera: No mass identified Bowel: The stomach is unremarkable. Questionable circumferential wall thickening of the rectum. Otherwise the visualized bowel is unremarkable without evidence of wall thickening or dilatation. Retroperitoneal/mesenteri c lymphadenopathy: There is no free fluid, loculated fluid collection, or free air. No evidence of abdominal pelvic lymphadenopathy. Aorta: There is no aneurysmal dilatation of the abdominal aorta. Moderate atherosclerotic calcifications of the abdominal aorta and its branches. Abdominal wall: Fat-containing left inguinal hernia. Bones: Moderate multilevel discogenic degenerative changes. Stable retrolisthesis at L2-L3. [facility] Ryan White MD - 12/22/2022 Patient Name: WOODY NI : 1960 [id number] Exam Date/Time: 12/22/2022 19:41 Procedure: CT ABDOMEN PELVIS WO IV CONTRAST Ordering Provider: MARIN MATTHEW Reason For Exam: Nausea/vomiting CT ABDOMEN AND PELVIS WITHOUT IV CONTRAST CLINICAL INDICATION: Nausea and vomiting TECHNIQUE: Multidetector spiral transaxial sequence was performed through the abdomen and pelvis. Images were reconstructed at 3 mm slice width at 3 mm interval. Dose reduction was employed with automated exposure control. COMPARISON:05/15/2022 CT abdomen and pelvis FINDINGS: Exam quality: This examination is limited for the evaluation of solid organs and vascular structures due to the lack of intravenous contrast. Lower chest: Mild bibasilar atelectasis without evidence of pleural effusion or focal consolidation. The heart is normal in size without evidence of pericardial effusion. The distal esophagus is unremarkable. Liver: The liver is normal in size without evidence of focal liver lesion. Biliary tree: Intrahepatic and extrahepatic ducts are nondilated. Gallbladder: The gallbladder is nondistended and without evidence of radiopaque stones. Pancreas: The pancreas appears unremarkable without evidence of ductal dilatation or mass. Spleen: The spleen is enlarged measuring 14 cm in length. Adrenals: Bilateral adrenal glands appear normal. Kidneys: The bilateral kidneys are normal in size. There are two 3 mm nonobstructing calculi in the superior pole of the right kidney. No evidence of hydroureteronephrosis or ureterolithiasis. Bladder: The bladder is decompressed limiting evaluation. Pelvic organs/viscera: No mass identified Bowel: The stomach is unremarkable. Questionable circumferential wall thickening of the rectum. Otherwise the visualized bowel is unremarkable without evidence of wall thickening or dilatation. Retroperitoneal/mesenteri c lymphadenopathy: There is no free fluid, loculated fluid collection, or free air. No evidence of abdominal pelvic lymphadenopathy. Aorta: There is no aneurysmal dilatation of the abdominal aorta. Moderate atherosclerotic calcifications of the abdominal aorta and its branches. Abdominal wall: Fat-containing left inguinal hernia. Bones: Moderate multilevel discogenic degenerative changes. Stable retrolisthesis at L2-L3. IMPRESSION: Questionable circumferential wall thickening of the rectum, please correlate with clinical concern for colitis. Further evaluation with direct visualization may be obtained as indicated. Splenomegaly. Nonobstructing right renal calculi. Report Dictated on Electronically Signed By: Ryan White Electronically Signed Date/Time: 12/22/2022 8:01 PM EST [facility] Radiology Study observation (narrative) [facility] CT Abdomen WO contrastOrdere d By: Ryan White on 12-22-2022 [facility] Work Phone: Comprehensive metabolic 1998 panelon 12-22-2022 Albumin [Mass/Vol] 4.6 g/dL 3.5 - 5.0 g/dL [facility] ALP [Catalytic activity/Vol] 59 U/L 38 - 126 U/L [facility] ALT [Catalytic activity/Vol] 214 U/L High 0 - 49 U/L [facility] Anion gap [Moles/Vol] 9 mmol/L 3 - 13 mmol/L [facility] AST [Catalytic activity/Vol] 205 U/L High 15 - 46 U/L [facility] Bilirubin [Mass/Vol] 1.0 mg/dL 0.2 - 1 .3 mg/dL [facility] Calcium [Mass/Vol] 9.6 mg/dL 8.4 - 10. 4 mg/dL [facility] Chloride [Moles/Vol] 92 mmol/L Low 98 - 10 7 mmol/L [facility] CO2 [Moles/Vol] 22 mmol/L 22 - 30 mmol/L [facility] Creatinine [Mass/Vol] 6.62 mg/dL High 0.66 - 1.25 mg/dL [facility] GFR/1.73 sq M.predicted MDRD (S/P/Bld) [Vol rate/Area] 8.8 mL/min/{1.73_m2} Low - PINF [facility] Comment on above: Calculation based on the Chronic Kidney Disease Epidemiology Collaboration (CKD-EPI) equation refit without adjustment for race Glucose [Mass/Vol] 101 mg/dL High 70 - 100 mg/dL [facility] Interpretation and review of laboratory results Abnormal [facility] Potassium [Moles/Vol] 5.1 mmol/L 3.5 - 5.1 mmol/L [facility] Protein [Mass/Vol] 7.8 g/dL 6.3 - 8.2 g/dL [facility] Sodium [Moles/Vol] 124 mmol/L Low 135 - 145 mmol/L [facility] Urea nitrogen [Mass/Vol] 46 mg/dL High 9 - 20 mg/dL [facility] Laboratory - Chemistry and C hemistry - challengeon 12-22-2022 Lipase [Catalytic activity/Vol] 111 U/L 23 - 300 U/L [employer] Lipase [Catalytic activity/V ol]on 12-22-2022 Interpretation and review of laboratory results Normal [facility] No Panel Informationon 12-22 [facility] Urinalysis complete panel (U )on 12-22-2022 Bacteria LM.HPF (Urine sed) [#/Area] Moderate Abnormal Negative /HPF [facility] Bilirubin Ql (U) Negative Negative mg/dL [facility] Clarity (U) Clear Clear [facility] Color (U) Yellow Lt. Yellow [facility] Epithelial cells.squamous LM.HPF (Urine sed) [#/Area] 0-2 [facility] Glucose Ql (U) Normal Normal (<70) mg/dL [facility] Hemoglobin Ql (U) 0.03 mg/dL Abnormal Negative [facility] Hyaline casts Auto (Urine sed) [#/Area] 3-5 Abnormal Negative /LPF [facility] Interpretation and review of laboratory results Abnormal [facility] Ketones (U) [Mass/Vol] Negative Negat zenia mg/dL [facility] Leukocyte esterase Test strip Ql (U) Negative Negative Emma/uL [facility] Mucus LM.HPF (Urine sed) [#/Area] Few Negative /LPF [facility] Nitrite Ql (U) Negative Negative [facility] pH (U) 5.0 [pH] 5.0 - 8.0 pH [facility] Protein (U) [Mass/Vol] 30 mg/dL Abnormal Negative [facility] RBC LM.HPF (Urine sed) [#/Area] Negative [facility] Specific gravity (U) [Rel density] 1.017 1.005 - 1.030 [facility] Urobilinogen (U) [Mass/Vol] Normal Normal (0-1) mg/dL [facility] Volume, Urine 12 mL [facility] WBC LM.HPF (Urine sed) [#/Area] 0-2 [facility] No Panel Informationon 07-08 [facility] Blood Occult Stool Screen #1 on 06-06-2022 Hemoglobin.gastrointes tinal Ql (Stl) Negative Negative NA [facility] Test Performed by [facility], [address], [place], [place] [address] [facility] Comp Metabolic Panelon 06-06 ALP [Catalytic activity/Vol] 65 U/L Normal 38-126 [facility] Comment on above: Performed By: #### N A3 #### [facility] [address] [place] [address] ALT [Catalytic activity/Vol] 183 U/L High 0-49 [facility] Comment on above: Result Comment: The ALT test is performed by an updated assay method. Please note that the reference intervals have been changed and are now sex specific. Performed By: #### N A3 #### [facility] [address] [place] [address] AST [Catalytic activity/Vol] 175 U/L High 15-46 [facility] Comment on above: Performed By: #### N A3 #### [facility] [address] [place] [address] Calcium [Mass/Vol] 9.0 mg/dL Normal 8.4-10.4 [facility] Comment on above: Performed By: #### N A3 #### [facility] [address] [place] [address] Glucose [Mass/Vol] 94 mg/dL Normal 70-100 [facility] Comment on above: Performed By: #### N A3 #### [place] [address] [place] [address] Protein [Mass/Vol] 6.1 g/dL Low 6.3-8.2 [facility] Comment on above: Performed By: #### N A3 #### [facility] [address] [place] [address] Urea nitrogen [Mass/Vol] 7 mg/dL Normal 7-17 [facility] Comment on above: Performed By: #### N A3 #### [facility] [address] [place] [address] Anion gap [Moles/Vol] 4 mmol/L Normal 3-13 [facility] Comment on above: Performed By: #### N A3 #### [facility] [address] [place] [address] Bilirubin [Mass/Vol] 0.7 mg/dL Normal 0.2-1.3 [facility] Comment on above: Performed By: #### N A3 #### [facility] [address] [place] [address] CO2 [Moles/Vol] 23 mmol/L Normal 22-30 [facility] Comment on above: Performed By: #### N A3 #### [facility] [address] [place] [address] Creatinine [Mass/Vol] 1.23 mg/dL Normal 0.52-1.25 [facility] Comment on above: Performed By: #### N A3 #### [facility] [address] [place] [address] GFR/1.73 sq M.predicted among blacks MDRD (S/P/Bld) [Vol rate/Area] 72.3 mL/min/{1.73_m2} Normal >60 [facility] Comment on above: Performed By: #### N A3 #### [facility] [address] [place] [address] GFR/1.73 sq M.predicted among non-blacks MDRD (S/P/Bld) [Vol rate/Area] 62.4 mL/min/{1.73_m2} Normal >60 [facility] Comment on above: Result Comment: KDIG O guidelines provide the following GFR categories: Stage GFR(ml/min/1.73 m2) Terms G1 >=90 Normal or high G2 60-89 Mildly decreased* G3a 45-59 Mildly to moderately decreased G3b 30-44 Moderately to severely decreased G4 15-29 Severely decreased G5 <15 Kidney failure *Relative to young adult level. In the absence of evidence of kidney damage, neither GFR category G1 nor G2 fulfill the criteria for CKD. The CKD-EPI equation is validated in individuals 18 years of age and older. Currently the best equation for estimating glomerular filtration rate (GFR) from serum creatinine in children is the Bedside Benjamin equation. It is less accurate in patients with extremes of muscle mass, restriction of dietary protein, ingestion of creatine, extra-renal metabolism of creatinine, or treatment with medications that affect renal tubular creatinine secretion. Performed By: #### N A3 #### [facility] [address] [place] [address] Albumin [Mass/Vol] 3.7 g/dL Normal 3.5-5.0 [facility] Comment on above: Performed By: #### N A3 #### [facility] [address] [place] [address] Chloride [Moles/Vol] 100 mmol/L Normal 98-107 [facility] Comment on above: Performed By: #### N A3 #### [facility] [address] [place] [address] Potassium [Moles/Vol] 4.6 mmol/L Normal 3.5-5.1 [facility] Comment on above: Performed By: #### N A3 #### [facility] [address] [place] [address] Sodium [Moles/Vol] 127 mmol/L Low 135-145 [facility] Comment on above: Performed By: #### N A3 #### [facility] [address] [place] [address] Comprehensive Metabolic Pane peter 06-06-2022 Albumin [Mass/Vol] 3.7 g/dL 3.5 - 5 g/dL [facility] ALP (Bld) [Catalytic activity/Vol] 65 U/L 38 - 126 U/L [facility] ALT [Catalytic activity/Vol] 183 U/L High 0 - 49 U/L [facility] Comment on above: The ALT test is perf ormed by an updated assay method. Please note that the reference intervals have been changed and are now sex specific. Anion gap [Moles/Vol] 4 mmol/L 3 - 13 mmol/L [facility] AST [Catalytic activity/Vol] 175 U/L High 15 - 46 U/L [facility] Bilirubin [Mass/Vol] 0.7 mg/dL 0.2 - 1 .3 mg/dL [facility] Calcium [Mass/Vol] 9.0 mg/dL 8.4 - 10. 4 mg/dL [facility] Chloride [Moles/Vol] 100 mmol/L 98 - 10 7 mmol/L [facility] CO2 [Moles/Vol] 23 mmol/L 22 - 30 mmol/L [facility] Creatinine [Mass/Vol] 1.23 mg/dL 0.52 - 1.25 mg/dL [facility] EGFR IF NonAfrican Polish 62.4 mL/min 60 - PINF mL/min [facility] Comment on above: KDIGO guidelines pro vide the following GFR categories: Stage GFR(ml/min/1.73 m2) Terms G1 >=90 Normal or high G2 60-89 Mildly decreased* G3a 45-59 Mildly to moderately decreased G3b 30-44 Moderately to severely decreased G4 15-29 Severely decreased G5 <15 Kidney failure *Relative to young adult level. In the absence of evidence of kidney damage, neither GFR category G1 nor G2 fulfill the criteria for CKD. The CKD-EPI equation is validated in individuals 18 years of age and older. Currently the best equation for estimating glomerular filtration rate (GFR) from serum creatinine in children is the Bedside Benjamin equation. It is less accurate in patients with extremes of muscle mass, restriction of dietary protein, ingestion of creatine, extra-renal metabolism of creatinine, or treatment with medications that affect renal tubular creatinine secretion. Free PSA/Total PSA [Mass fraction] 6.1 g/dL Low 6.3 - 8.2 g/dL [facility] GFR/1.73 sq M.predicted among blacks MDRD (S/P/Bld) [Vol rate/Area] 72.3 mL/min/{1.73_m2} 60 - PINF mL/min [facility] Glucose [Mass/Vol] 94 mg/dL 70 - 100 mg/dL [facility] Interpretation and review of laboratory results Abnormal [facility] Potassium [Moles/Vol] 4.6 mmol/L 3.5 - 5.1 mmol/L [facility] Sodium [Moles/Vol] 127 mmol/L Low 135 - 145 mmol/L [facility] Urea nitrogen (BldV) [Mass/Vol] 7 mg/dL 7 - 17 mg/dL [facility] Test Performed by [facility], [address] [place], [place] [address] [facility] Fecal Occult,Stool Single Sp econ 06-06-2022 Fecal Occult,Stool Single Spec Negative Normal Negative [facility] Comment on above: Performed By: #### N A3 #### [facility] [address] [place] [address] Glucose,Bedsideon 06-06-2022 Glucose [Mass/Vol] 153 mg/dL High 70-100 [facility] Comment on above: Result Comment: Test performed by glucose meter. Results may be 10%-15% lower than serum/plasma values. (CLIA ID [id number]) Performed By: #### N A3 #### [facility] [address] [place] [address] Glucose [Mass/Vol] 133 mg/dL High 70-100 [facility] Comment on above: Result Comment: Test performed by glucose meter. Results may be 10%-15% lower than serum/plasma values. (CLIA ID [id number]) Performed By: #### B GLU #### [facility] [address] [place] [address] [place] GASTRIC EMPTYINGon 2021 Patient Name: WOODY NI Nuclear Medicine ACCESSION EXAM DATE/TIME PROCEDURE ORDERING PROVIDER [id number] 06/06/2022 12:02 EDT [place] Gastric Emptying [id number] -OLEGHE, IFIJEN Study CPT code 80397 Reason For Exam (NM Gastric Emptying Study) Possible gastroparesis Report SOLID PHASE GASTRIC EMPTYING STUDY CLINICAL INDICATION: Gastroparesis The patient was given a standard meal of 1.1 millicurie of technetium-99m sulfur colloid prepared with egg. Anterior and posterior images over the abdomen were obtained up to two hours after ingestion. MALINI activity curves over the stomach were then calculated. COMPARISON: None FINDINGS: At one hour, there is 58 percent of original activity within the stomach. At two hours after ingestion, 27 percent of original activity remains within the stomach. Normal at two hours following ingestion is between 19 and 52 percent. IMPRESSION: Normal gastric emptying with solid meal. Report Dictated on --- Final --- Dictating Physician: MD LYN JONATHAN R Signed Date and Time: 06/06/2022 12:13 pm Signed by: MD LYN JONATHAN R Transcribed Date and Time: 06/06/2022 12:14 [facility] Ana Lyn MD - 06/06/2022 Patient Name: WOODY NI Nuclear Medicine ACCESSION EXAM DATE/TIME PROCEDURE ORDERING PROVIDER [id number] 06/06/2022 12:02 EDT NM Gastric Emptying [id number] -OLEGHE, IFIJEN Study CPT code 03212 Reason For Exam (NM Gastric Emptying Study) Possible gastroparesis Report SOLID PHASE GASTRIC EMPTYING STUDY CLINICAL INDICATION: Gastroparesis The patient was given a standard meal of 1.1 millicurie of technetium-99m sulfur colloid prepared with egg. Anterior and posterior images over the abdomen were obtained up to two hours after ingestion. MALINI activity curves over the stomach were then calculated. COMPARISON: None FINDINGS: At one hour, there is 58 percent of original activity within the stomach. At two hours after ingestion, 27 percent of original activity remains within the stomach. Normal at two hours following ingestion is between 19 and 52 percent. IMPRESSION: Normal gastric emptying with solid meal. Report Dictated on --- Final --- Dictating Physician: MD LYN JONATHAN R Signed Date and Time: 06/06/2022 12:13 pm Signed by: MD LYN JONATHAN R Transcribed Date and Time: 06/06/2022 12:14 [facility] Work Phone: Radiology Study observation (narrative) [facility] Work Phone: [place] GASTRIC EMPTYINGOrdered B y: Ana Lyn on 06-06-2022 [facility] Work Phone: NM Gastric Emptying Studyon 06-06-2022 NM Gastric Emptying Study Patient Name: WOODY NI Nuclear Medicine ACCESSION EXAM DATE/TIME PROCEDURE ORDERING PROVIDER [id number] 06/06/2022 12:02 EDT NM Gastric Emptying [id number] -JUAN IFICHAPO Study CPT code 87090 Reason For Exam (NM Gastric Emptying Study) Possible gastroparesis Report SOLID PHASE GASTRIC EMPTYING STUDY CLINICAL INDICATION: Gastroparesis The patient was given a standard meal of 1.1 millicurie of technetium-99m sulfur colloid prepared with egg. Anterior and posterior images over the abdomen were obtained up to two hours after ingestion. MALINI activity curves over the stomach were then calculated. COMPARISON: None FINDINGS: At one hour, there is 58 percent of original activity within the stomach. At two hours after ingestion, 27 percent of original activity remains within the stomach. Normal at two hours following ingestion is between 19 and 52 percent. IMPRESSION: Normal gastric emptying with solid meal. Report Dictated on Final Dictating Physician: MD LYN JONATHAN R Signed Date and Time: 06/06/2022 12:13 pm Signed by: MD EBONI, ANA [employer] Date and Time: 06/06/2022 12:14 Normal [facility] POCT Glucoseon 06-06-2022 Glucose [Mass/Vol] 153 mg/dL High 70 - 100 mg/dL [facility] Work Phone: Comment on above: Test performed by gl ucose meter. Results may be 10%-15% lower than serum/plasma values. (CLIA ID [id number]) Interpretation and review of laboratory results Abnormal [facility] Work Phone: Test Performed by [facility], [address] LAB [facility] Work Phone: Test Performed by [facility], [address] LAB POCT GlucoseOrdered By: Kaia Schaefer on 06-06-2022 Glucose [Mass/Vol] 133 mg/dL High 70 - 100 mg/dL [facility] Work Phone: Comment on above: Test performed by gl ucose meter. Results may be 10%-15% lower than serum/plasma values. (CLIA ID [id number]) Interpretation and review of laboratory results Abnormal [facility] Work Phone: [facility] Work Phone: Sodiumon 06-06-2022 Sodium [Moles/Vol] 129 mmol/L Low 135-145 [facility] Comment on above: Performed By: #### N A3 #### [facility] [address] [place] [address] CBCon 06-05-2022 Hematocrit (Bld) [Volume fraction] 31.7 % Low 40 - 52 % [facility] Hemoglobin (Bld) [Mass/Vol] 10.9 g/dL Low 13 - 18 g/dL [facility] Interpretation and review of laboratory results Abnormal [facility] MCH (RBC) [Entitic mass] 34.0 pg 26 - 34 pg [facility] MCHC (RBC) [Mass/Vol] 34.5 % 32 - 36 % [facility] MCV (RBC) [Entitic vol] 98.7 fL High 80 - 98 fL [facility] Platelet distribution width (Bld) [Ratio] 13.4 % 11.5 - 14.5 % [facility] Platelet mean volume (Bld) [Entitic vol] 8.6 fL 7.4 - 12.4 fL [facility] Comment on above: MPV is a calculated measurement using platelet volume ratio. Platelets (Bld) [#/Vol] 104 10*3/uL Low 140 - 440 10*3/uL [facility] RBC (Bld) [#/Vol] 3.21 10*6/uL Low 4.4 - 5.9 10*6/uL [facility] WBC (Bld) [#/Vol] 3.4 10*3/uL Low 3.6 - 10.7 10*3/uL [facility] Test Performed by [facility], [address] [place] [address] [facility] LAB [facility] Comp Metabolic Panelon 06-05 ALP [Catalytic activity/Vol] 58 U/L Normal 38-126 [facility] Comment on above: Performed By: #### B GLU #### [facility] [address] [place] [address] ALT [Catalytic activity/Vol] 191 U/L High 0-49 [facility] Comment on above: Result Comment: The ALT test is performed by an updated assay method. Please note that the reference intervals have been changed and are now sex specific. Performed By: #### B GLU #### [facility] [address] [place] [address] Anion gap [Moles/Vol] 7 mmol/L Normal 3-13 [facility] Comment on above: Performed By: #### B GLU #### [facility] [address] [place] [address] AST [Catalytic activity/Vol] 178 U/L High 15-46 [facility] Comment on above: Performed By: #### B GLU #### [facility] [address] [place] [address] Calcium [Mass/Vol] 8.9 mg/dL Normal 8.4-10.4 [facility] Comment on above: Performed By: #### B GLU #### [facility] [address] [place] [address] CO2 [Moles/Vol] 24 mmol/L Normal 22-30 [facility] Comment on above: Performed By: #### B GLU #### [facility] [address] [place] [address] Glucose [Mass/Vol] 93 mg/dL Normal 70-100 [facility] Comment on above: Performed By: #### B GLU #### [facility] [address] [place] [address] Protein [Mass/Vol] 6.2 g/dL Low 6.3-8.2 [facility] Comment on above: Performed By: #### B GLU #### [facility] [address] [place] [address] Urea nitrogen [Mass/Vol] 8 mg/dL Normal 7-17 [facility] Comment on above: Performed By: #### B GLU #### [facility] [address] [place] [address] Bilirubin [Mass/Vol] 0.6 mg/dL Normal 0.2-1.3 [facility] Comment on above: Performed By: #### B GLU #### [facility] [address] [place] [address] Creatinine [Mass/Vol] 1.19 mg/dL Normal 0.52-1.25 [facility] Comment on above: Performed By: #### B GLU #### [facility] [address] [place] [address] GFR/1.73 sq M.predicted among blacks MDRD (S/P/Bld) [Vol rate/Area] 75.2 mL/min/{1.73_m2} Normal >60 [facility] Comment on above: Performed By: #### B GLU #### [facility] [address] [place] [address] GFR/1.73 sq M.predicted among non-blacks MDRD (S/P/Bld) [Vol rate/Area] 64.9 mL/min/{1.73_m2} Normal >60 [facility] Comment on above: Result Comment: KDIG O guidelines provide the following GFR categories: Stage GFR(ml/min/1.73 m2) Terms G1 >=90 Normal or high G2 60-89 Mildly decreased* G3a 45-59 Mildly to moderately decreased G3b 30-44 Moderately to severely decreased G4 15-29 Severely decreased G5 <15 Kidney failure *Relative to young adult level. In the absence of evidence of kidney damage, neither GFR category G1 nor G2 fulfill the criteria for CKD. The CKD-EPI equation is validated in individuals 18 years of age and older. Currently the best equation for estimating glomerular filtration rate (GFR) from serum creatinine in children is the Bedside Benjamin equation. It is less accurate in patients with extremes of muscle mass, restriction of dietary protein, ingestion of creatine, extra-renal metabolism of creatinine, or treatment with medications that affect renal tubular creatinine secretion. Performed By: #### B GLU #### [facility] [address] [place] [address] Albumin [Mass/Vol] 3.7 g/dL Normal 3.5-5.0 [facility] Comment on above: Performed By: #### B GLU #### [facility] [address] [place] [address] Chloride [Moles/Vol] 97 mmol/L Low 98-107 [facility] Comment on above: Performed By: #### B GLU #### [facility] [address] [place] [address] Potassium [Moles/Vol] 4.5 mmol/L Normal 3.5-5.1 [facility] Comment on above: Performed By: #### B GLU #### [facility] [address] [place] [address] Sodium [Moles/Vol] 128 mmol/L Low 135-145 [facility] Comment on above: Performed By: #### B GLU #### [facility] [address] [place] [address] Comprehensive Metabolic Pane peter 06-05-2022 Albumin [Mass/Vol] 3.7 g/dL 3.5 - 5 g/dL [facility] ALP (Bld) [Catalytic activity/Vol] 58 U/L 38 - 126 U/L [facility] ALT [Catalytic activity/Vol] 191 U/L High 0 - 49 U/L [facility] Comment on above: The ALT test is perf ormed by an updated assay method. Please note that the reference intervals have been changed and are now sex specific. Anion gap [Moles/Vol] 7 mmol/L 3 - 13 mmol/L [facility] AST [Catalytic activity/Vol] 178 U/L High 15 - 46 U/L [facility] Bilirubin [Mass/Vol] 0.6 mg/dL 0.2 - 1 .3 mg/dL [facility] Calcium [Mass/Vol] 8.9 mg/dL 8.4 - 10. 4 mg/dL [facility] Chloride [Moles/Vol] 97 mmol/L Low 98 - 10 7 mmol/L [facility] CO2 [Moles/Vol] 24 mmol/L 22 - 30 mmol/L [facility] Creatinine [Mass/Vol] 1.19 mg/dL 0.52 - 1.25 mg/dL [facility] EGFR IF NonAfrican Polish 64.9 mL/min 60 - PINF mL/min [facility] Comment on above: KDIGO guidelines pro vide the following GFR categories: Stage GFR(ml/min/1.73 m2) Terms G1 >=90 Normal or high G2 60-89 Mildly decreased* G3a 45-59 Mildly to moderately decreased G3b 30-44 Moderately to severely decreased G4 15-29 Severely decreased G5 <15 Kidney failure *Relative to young adult level. In the absence of evidence of kidney damage, neither GFR category G1 nor G2 fulfill the criteria for CKD. The CKD-EPI equation is validated in individuals 18 years of age and older. Currently the best equation for estimating glomerular filtration rate (GFR) from serum creatinine in children is the Bedside Benjamin equation. It is less accurate in patients with extremes of muscle mass, restriction of dietary protein, ingestion of creatine, extra-renal metabolism of creatinine, or treatment with medications that affect renal tubular creatinine secretion. Free PSA/Total PSA [Mass fraction] 6.2 g/dL Low 6.3 - 8.2 g/dL [facility] GFR/1.73 sq M.predicted among blacks MDRD (S/P/Bld) [Vol rate/Area] 75.2 mL/min/{1.73_m2} 60 - PINF mL/min [facility] Glucose [Mass/Vol] 93 mg/dL 70 - 100 mg/dL [facility] Interpretation and review of laboratory results Abnormal [facility] Potassium [Moles/Vol] 4.5 mmol/L 3.5 - 5.1 mmol/L [facility] Sodium [Moles/Vol] 128 mmol/L Low 135 - 145 mmol/L [facility] Urea nitrogen (BldV) [Mass/Vol] 8 mg/dL 7 - 17 mg/dL [facility] Test Performed by [facility], [address] [place] [address] [facility] LAB [facility] Glucose,Bedsideon 06-05-2022 Glucose [Mass/Vol] 107 mg/dL High 70-100 [facility] Comment on above: Result Comment: Test performed by glucose meter. Results may be 10%-15% lower than serum/plasma values. (CLIA ID [id number]) Performed By: #### B GLU #### [facility] [address] [place] [address] Glucose [Mass/Vol] 94 mg/dL Normal 70-100 [facility] Comment on above: Result Comment: Test performed by glucose meter. Results may be 10%-15% lower than serum/plasma values. (CLIA ID [id number]) Performed By: #### B GLU #### [facility] [address] [place] [address] Glucose [Mass/Vol] 96 mg/dL Normal 70-100 [facility] Comment on above: Result Comment: Test performed by glucose meter. Results may be 10%-15% lower than serum/plasma values. (CLIA ID [id number]) Performed By: #### B GLU #### [facility] [address] [place] [address] Glucose [Mass/Vol] 105 mg/dL High 70-100 [facility] Comment on above: Result Comment: Test performed by glucose meter. Results may be 10%-15% lower than serum/plasma values. (CLIA ID [id number]) Performed By: #### B GLU #### [facility] [address] [place] [address] HM ENDOSCOPY REPORTon 2021 Ordered by an unspec ified provider. [facility] Hemogramon 06-05-2022 Erythrocyte distribution width (RBC) [Ratio] 13.4 % Normal 11.5-14.5 [facility] Comment on above: Performed By: #### B GLU #### [facility] [address] [place] [address] Hematocrit (Bld) [Volume fraction] 31.7 % Low 40.0-52.0 [facility] Comment on above: Performed By: #### B GLU #### [facility] [address] [place] [address] Hemoglobin (Bld) [Mass/Vol] 10.9 g/dL Low 13.0-18.0 [facility] Comment on above: Performed By: #### B GLU #### [facility] [address] [place] [address] MCH (RBC) [Entitic mass] 34.0 pg Normal 26.0-34.0 [facility] Comment on above: Performed By: #### B GLU #### [facility] [address] [place] [address] MCHC 34.5 % Normal 32.0-36.0 [facility] Comment on above: Performed By: #### B GLU #### [facility] [address] [place] [address] MCV (RBC) [Entitic vol] 98.7 fL High 80.0-98.0 [facility] Comment on above: Performed By: #### B GLU #### [facility] [address] [place] [address] Platelet mean volume (Bld) [Entitic vol] 8.6 fL Normal 7.4-12.4 [facility] Comment on above: Result Comment: MPV is a calculated measurement using platelet volume ratio. Performed By: #### B GLU #### [facility] [address] [place] [address] Platelets (Bld) [#/Vol] 104 10*3/uL Low 140-440 [facility] Comment on above: Performed By: #### B GLU #### [facility] [address] [place] [address] RBC (Bld) [#/Vol] 3.21 10*6/uL Low 4.40-5.90 [facility] Comment on above: Performed By: #### B GLU #### [facility] [address] [place] [address] WBC (Bld) [#/Vol] 3.4 10*3/uL Low 3.6-10.7 [facility] Comment on above: Performed By: #### B GLU #### [facility] [address] [place] [address] POCT GlucoseOrdered By: Елена Yoo on 06-05-2022 Glucose [Mass/Vol] 107 mg/dL High 70 - 100 mg/dL [facility] Work Phone: Comment on above: Test performed by gl ucose meter. Results may be 10%-15% lower than serum/plasma values. (CLIA ID [id number]) Interpretation and review of laboratory results Abnormal [facility] Work Phone: [facility] Work Phone: POCT Glucoseon 06-05-2022 Test Performed by [facility], [address] LAB Glucose [Mass/Vol] 94 mg/dL 70 - 100 mg/dL [facility] Work Phone: Comment on above: Test performed by gl ucose meter. Results may be 10%-15% lower than serum/plasma values. (CLIA ID [id number]) Test Performed by [facility], [address] LAB [facility] Work Phone: Test Performed by [facility], [address] LAB Test Performed by [facility], [address] LAB POCT GlucoseOrdered By: Jennifer Cordova on 06-05-2022 Glucose [Mass/Vol] 96 mg/dL 70 - 100 mg/dL [facility] Comment on above: Test performed by gl ucose meter. Results may be 10%-15% lower than serum/plasma values. (CLIA ID [id number]) [facility] POCT GlucoseOrdered By: Janett Monaco on 06-05-2022 Glucose [Mass/Vol] 105 mg/dL High 70 - 100 mg/dL [facility] Comment on above: Test performed by gl ucose meter. Results may be 10%-15% lower than serum/plasma values. (CLIA ID [id number]) Interpretation and review of laboratory results Abnormal [facility] Retic Count(%)on 06-05-2022 Retic Count(%) 1.5 Normal [facility] Comment on above: Result Comment: Newb orn < 5% Adults 0.5 - 1.5% Performed By: #### B GLU #### [facility] [address] [place] [address] Reticulocyteson 06-05-[address] Pct 1.5 [facility] Comment on above: < 5% Adults 0.5 - 1.5% Test Performed by [facility], [facility] [address] LAB [facility] Sodiumon 06-05-2022 Interpretation and review of laboratory results Abnormal [facility] Sodium [Moles/Vol] 129 mmol/L Low 135 - 145 mmol/L [facility] Test Performed by [facility], [facility] [address] LAB [facility] Sodium [Moles/Vol] 127 mmol/L Low 135-145 [facility] Comment on above: Performed By: #### N A3 #### [facility] [address] [place] [address] Interpretation and review of laboratory results Abnormal [facility] Sodium [Moles/Vol] 127 mmol/L Low 135 - 145 mmol/L [facility] Test Performed by [facility], [facility] [address] LAB [facility] Sodium [Moles/Vol] 126 mmol/L Low 135-145 [facility] Comment on above: Performed By: #### N A3 #### [facility] [address] [place] [address] Interpretation and review of laboratory results Abnormal [facility] Sodium [Moles/Vol] 126 mmol/L Low 135 - 145 mmol/L [facility] Test Performed by [facility], [address] LAB [facility] Sodium [Moles/Vol] 127 mmol/L Low 135-145 [facility] Comment on above: Performed By: #### B GLU #### [facility] [address] [place] [address] Sodium, Ur Randomon 06-05-20 22 Sodium [Moles/Vol] 63 mmol/L Normal 30-90 [facility] Comment on above: Performed By: #### N A3 #### [facility] [address] [place] [address] Sodium, Urine, Randomon 05-19 Sodium (U) [Moles/Vol] 63 mmol/L 30 - 90 mmol/L [facility] Test Performed by [facility], [address] [place], [place] [address] [facility] LAB [facility] Surgical Pathologyon 022 Surgical Pathology [id number] [facility] PATHOLOGY AND LABORATORY MEDICINE [address] [place] [address] Fax - FINAL SURGICAL PATHOLOGY REPORT NAME: WODOY NI : 1960 62 Y M [facility] NO.: [id number] LOCATION: [place] [address] PROCEDURE 06/05/2022 DATE: SURGEON: ANA CALLAWAY M.D. RECEIVED 06/05/2022 DATE: ATTENDING: MARLYN DASH MD REPORT DATE: 06/09/2022 COPIES TO: DIAGNOSIS: STOMACH, ANTRUM, BIOPSY - REACTIVE GASTROPATHY. Comment: Evaluation of the H&E-stained sections shows no evidence of Helicobacter pylori or any morphologic features to suggest infection with the organism; as such, further studies for Helicobacter are not indicated. There is no evidence of intestinal metaplasia, dysplasia or malignancy. CRH/CRH Signature> TRESSA SANTIZO M.D. CLINICAL INFORMATION: Nausea with vomiting SPECIMEN: GASTRIC BIOPSY GROSS DESCRIPTION: Received in formalin labeled "stomach antrum" is an irregular-shaped segment of pink-quezada soft tissue measuring 0.3 x 0.2 x 0.2 cm. Submitted in one cassette. BSC/JAM Disclaimer: The following statement applies to all immunohistochemistry, in situ hybridization, molecular studies, and immunofluorescence testing. The use of one or more reagents in the above tests is regulated as an analyte specific reagent (ASR). These tests were developed and their performance characteristics determined by the clinical laboratories of [facility]. They have not been cleared by the US Food and Drug Administration (FDA). The FDA has determined that such clearance or approval is not necessary. All the above immunostains were performed on paraffin embedded tissue. Appropriate positive and negative controls (where applicable) were run in parallel with the patient's specimen; these controls showed expected staining pattern, with acceptable intensity of staining. Immunohistochemical assays have not been validated on decalcified tissues. Results should be interpreted with caution given the raised possibility of false negativity on decalcified specimens. Case reviewed at [place] [address] [place] [address]. DEPARTMENT OF PATHOLOGY AND LABORATORY MEDICINE [place], [place] [address] [email or web address] Normal [facility] Add On Lab Teston 06-04-2022 Add On Rejected [facility] Test Performed by [facility], [address], [place], [place] [address] [facility] Add on test from HISon 06-04 Add on test from HIS Rejected Normal [facility] Comment on above: Performed By: #### B GLU #### [facility] [address] [place] [address] C. difficile toxin Molecular on 06-04-2022 C. difficile toxin Molecular NEGATIVE Methodology - Real Time PCR ([employer]) Clinical judgement must be used when interpreting results. Positive results may reflect colonization. Indeterminate results suggest a new specimen be submitted. _ [facility] 1 [facility] CBCon 06-04-2022 Hematocrit (Bld) [Volume fraction] 23.4 % Low 40 - 52 % [facility] Hemoglobin (Bld) [Mass/Vol] 8.0 g/dL Low 13 - 18 g/dL [facility] Interpretation and review of laboratory results Abnormal [facility] MCH (RBC) [Entitic mass] 34.5 pg High 26 - 34 pg [facility] MCHC (RBC) [Mass/Vol] 34.3 % 32 - 36 % [facility] MCV (RBC) [Entitic vol] 100.5 fL High 80 - 98 fL [facility] Platelet distribution width (Bld) [Ratio] 13.2 % 11.5 - 14.5 % [facility] Platelet mean volume (Bld) [Entitic vol] 9.2 fL 7.4 - 12.4 fL [facility] Comment on above: MPV is a calculated measurement using platelet volume ratio. Platelets (Bld) [#/Vol] 72 10*3/uL Low 140 - 440 10*3/uL [facility] RBC (Bld) [#/Vol] 2.33 10*6/uL Low 4.4 - 5.9 10*6/uL [facility] WBC (Bld) [#/Vol] 2.4 10*3/uL Low 3.6 - 10.7 10*3/uL [facility] Test Performed by [facility], [address], [place], [place] [address] [facility] CBC with Auto Differentialon 06-04-2022 Hematocrit (Bld) [Volume fraction] 30.5 % Low 40 - 52 % [facility] Hemoglobin (Bld) [Mass/Vol] 10.5 g/dL Low 13 - 18 g/dL [facility] Interpretation and review of laboratory results Abnormal [facility] MCH (RBC) [Entitic mass] 34.3 pg High 26 - 34 pg [facility] MCHC (RBC) [Mass/Vol] 34.5 % 32 - 36 % [facility] MCV (RBC) [Entitic vol] 99.5 fL High 80 - 98 fL [facility] Platelet distribution width (Bld) [Ratio] 13.3 % 11.5 - 14.5 % [facility] Platelet mean volume (Bld) [Entitic vol] 9.0 fL 7.4 - 12.4 fL [facility] Comment on above: MPV is a calculated measurement using platelet volume ratio. Platelets (Bld) [#/Vol] 98 10*3/uL Low 140 - 440 10*3/uL [facility] RBC (Bld) [#/Vol] 3.07 10*6/uL Low 4.4 - 5.9 10*6/uL [facility] WBC (Bld) [#/Vol] 3.5 10*3/uL Low 3.6 - 10.7 10*3/uL [facility] Test Performed by [facility], [address], [place], [place] [address] [facility] Clostridium difficile PCRon 06-04-2022 Clostridium difficile PCR Clostridium difficile by PCR --> Status: F NEGATIVE Methodology - Real Time PCR (Cepheid) Clinical judgement must be used when interpreting results. Positive results may reflect colonization. Indeterminate results suggest a new specimen be submitted. _ Methodology - Real Time PCR (Cepheid) Clinical judgement must be used when interpreting results. Positive results may reflect colonization. Indeterminate results suggest a new specimen be submitted. _ Normal [facility] Comment on above: Performed By: #### C DPCR #### , [id number] The performing lab is in the report. Comp Metabolic Panelon 06-04 ALP [Catalytic activity/Vol] 38 U/L Normal 38-126 [facility] Comment on above: Performed By: #### B GLU #### [facility] [address] [place] [address] ALT [Catalytic activity/Vol] 172 U/L High 0-49 [facility] Comment on above: Result Comment: The ALT test is performed by an updated assay method. Please note that the reference intervals have been changed and are now sex specific. Performed By: #### B GLU #### [facility] [address] [place] [address] Anion gap [Moles/Vol] 6 mmol/L Normal 3-13 [facility] Comment on above: Performed By: #### B GLU #### [facility] [address] [place] [address] AST [Catalytic activity/Vol] 177 U/L High 15-46 [facility] Comment on above: Performed By: #### B GLU #### [facility] [address] [place] [address] Bilirubin [Mass/Vol] 0.3 mg/dL Normal 0.2-1.3 [facility] Comment on above: Performed By: #### B GLU #### [facility] [address] [place] [address] Calcium [Mass/Vol] 6.3 mg/dL Low 8.4-10.4 [facility] Comment on above: Performed By: #### B GLU #### [facility] [address] [place] [address] CO2 [Moles/Vol] 16 mmol/L Low 22-30 [facility] Comment on above: Performed By: #### B GLU #### [facility] [address] [place] [address] Glucose [Mass/Vol] 76 mg/dL Normal 70-100 [facility] Comment on above: Performed By: #### B GLU #### [facility] [address] [place] [address] Protein [Mass/Vol] 4.7 g/dL Low 6.3-8.2 [facility] Comment on above: Performed By: #### B GLU #### [facility] [address] [place] [address] Urea nitrogen [Mass/Vol] 4 mg/dL Low 7-17 [facility] Comment on above: Performed By: #### B GLU #### [facility] [address] [place] [address] Creatinine [Mass/Vol] 1.04 mg/dL Normal 0.52-1.25 [facility] Comment on above: Performed By: #### B GLU #### [facility] [address] [place] [address] GFR/1.73 sq M.predicted among blacks MDRD (S/P/Bld) [Vol rate/Area] 88.6 mL/min/{1.73_m2} Normal >60 [facility] Comment on above: Performed By: #### B GLU #### [facility] [address] [place] [address] GFR/1.73 sq M.predicted among non-blacks MDRD (S/P/Bld) [Vol rate/Area] 76.4 mL/min/{1.73_m2} Normal >60 [facility] Comment on above: Result Comment: KDIG O guidelines provide the following GFR categories: Stage GFR(ml/min/1.73 m2) Terms G1 >=90 Normal or high G2 60-89 Mildly decreased* G3a 45-59 Mildly to moderately decreased G3b 30-44 Moderately to severely decreased G4 15-29 Severely decreased G5 <15 Kidney failure *Relative to young adult level. In the absence of evidence of kidney damage, neither GFR category G1 nor G2 fulfill the criteria for CKD. The CKD-EPI equation is validated in individuals 18 years of age and older. Currently the best equation for estimating glomerular filtration rate (GFR) from serum creatinine in children is the Bedside Benjamin equation. It is less accurate in patients with extremes of muscle mass, restriction of dietary protein, ingestion of creatine, extra-renal metabolism of creatinine, or treatment with medications that affect renal tubular creatinine secretion. Performed By: #### B GLU #### [facility] [address] [place] [address] Albumin [Mass/Vol] 2.7 g/dL Low 3.5-5.0 [facility] Comment on above: Performed By: #### B GLU #### [facility] [address] [place] [address] Chloride [Moles/Vol] 108 mmol/L High 98-107 [facility] Comment on above: Performed By: #### B GLU #### [facility] [address] [place] [address] Potassium [Moles/Vol] 3.4 mmol/L Low 3.5-5.1 [facility] Comment on above: Performed By: #### B GLU #### [facility] [address] [place] [address] Sodium [Moles/Vol] 130 mmol/L Low 135-145 [facility] Comment on above: Performed By: #### B GLU #### [facility] [address] [place] [address] Comprehensive Metabolic Pane peter 06-04-2022 Albumin [Mass/Vol] 2.7 g/dL Low 3.5 - 5 g/dL [facility] ALP (Bld) [Catalytic activity/Vol] 38 U/L 38 - 126 U/L [facility] ALT [Catalytic activity/Vol] 172 U/L High 0 - 49 U/L [facility] Comment on above: The ALT test is perf ormed by an updated assay method. Please note that the reference intervals have been changed and are now sex specific. Anion gap [Moles/Vol] 6 mmol/L 3 - 13 mmol/L [facility] AST [Catalytic activity/Vol] 177 U/L High 15 - 46 U/L [facility] Bilirubin [Mass/Vol] 0.3 mg/dL 0.2 - 1 .3 mg/dL [facility] Calcium [Mass/Vol] 6.3 mg/dL Low 8.4 - 10. 4 mg/dL [facility] Chloride [Moles/Vol] 108 mmol/L High 98 - 10 7 mmol/L [facility] CO2 [Moles/Vol] 16 mmol/L Low 22 - 30 mmol/L [facility] Creatinine [Mass/Vol] 1.04 mg/dL 0.52 - 1.25 mg/dL [facility] EGFR IF NonAfrican Polish 76.4 mL/min 60 - PINF mL/min [facility] Comment on above: KDIGO guidelines pro vide the following GFR categories: Stage GFR(ml/min/1.73 m2) Terms G1 >=90 Normal or high G2 60-89 Mildly decreased* G3a 45-59 Mildly to moderately decreased G3b 30-44 Moderately to severely decreased G4 15-29 Severely decreased G5 <15 Kidney failure *Relative to young adult level. In the absence of evidence of kidney damage, neither GFR category G1 nor G2 fulfill the criteria for CKD. The CKD-EPI equation is validated in individuals 18 years of age and older. Currently the best equation for estimating glomerular filtration rate (GFR) from serum creatinine in children is the Bedside Benjamin equation. It is less accurate in patients with extremes of muscle mass, restriction of dietary protein, ingestion of creatine, extra-renal metabolism of creatinine, or treatment with medications that affect renal tubular creatinine secretion. Free PSA/Total PSA [Mass fraction] 4.7 g/dL Low 6.3 - 8.2 g/dL [facility] GFR/1.73 sq M.predicted among blacks MDRD (S/P/Bld) [Vol rate/Area] 88.6 mL/min/{1.73_m2} 60 - PINF mL/min [facility] Glucose [Mass/Vol] 76 mg/dL 70 - 100 mg/dL [facility] Interpretation and review of laboratory results Abnormal [facility] Potassium [Moles/Vol] 3.4 mmol/L Low 3.5 - 5.1 mmol/L [facility] Sodium [Moles/Vol] 130 mmol/L Low 135 - 145 mmol/L [facility] Urea nitrogen (BldV) [Mass/Vol] 4 mg/dL Low 7 - 17 mg/dL [facility] Test Performed by [address] LAB [facility] EKG 12 Lead - Chest Painon 0 06-04-2022 [facility] Test Date: 2022-06-03 Pat Name: WOODY NI Department: EMERGENCY Room: 243 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1960 Requested By: DANIEL EWING Order Number: [id number] Reading MD: Khurram Bob Measurements Intervals [place] Rate: 75 P: 0 TX: 159 QRS: -32 QRSD: 141 T: 11 QT: 412 QTc: 459 Interpretive Statements Sinus rhythm Right bundle branch block No previous ECG available for comparison Electronically Signed On 06-04-2022 7:11:00 EDT by Khurram Bob [facility] Khurram Bob MD - 06/04/2022 [facility] Test Date: 2022-06-03 Pat Name: WOODY NI Department: EMERGENCY Room: 243 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1960 Requested By: DANIEL EWING Order Number: [id number] Reading MD: Khurram Bob Measurements Intervals [place] Rate: 75 P: 0 TX: 159 QRS: -32 QRSD: 141 T: 11 QT: 412 QTc: 459 Interpretive Statements Sinus rhythm Right bundle branch block No previous ECG available for comparison Electronically Signed On 06-04-2022 7:11:00 EDT by Khurram Bob [facility] Work Phone: EKG 12 Lead - Chest PainOrde red By: Khurram Bob on 06-04-2022 [facility] Work Phone: Ferritinon 06-04-2022 Ferritin [Mass/Vol] 981 ng/mL High 18-464 [facility] Comment on above: Performed By: #### N A3 #### [facility] [address] [place] [address] Ferritin [Mass/Vol] 981 ng/mL High 18 - 464 ng/mL [facility] Interpretation and review of laboratory results Abnormal [facility] Test Performed by [facility], [address] [place], [place] [address] [facility] GASTROINTESTINAL PCR PANELon 06-04-2022 GASTROINTESTINAL PCR PANEL GASTROINTESTINAL PCR PANEL --> Status: F NEGATIVE: No targets were detected by the [employer] Gastrointestinal PCR Panel. _ The [employer] Gastrointestinal PCR Panel can detect the following targets: Campylobacter, Plesiomonas shigelloides, Salmonella, Vibrio species, Vibrio cholerae, Yersinia enterocolitica, Shiga toxin-producing E coli (STEC) including E coli O157, Enterotoxigenic E coli (ETEC), Shigella/Enteroinvasive E coli (EIEC), Cryptosporidium, Cyclospora cayetanensis, Entamoeba histolytica, Giardia lamblia, Adenovirus F 40/41, Astrovirus, Norovirus GI/GII, Rotavirus A, Sapovirus Gastrointestinal PCR Panel. _ The [employer] Gastrointestinal PCR Panel can detect the following targets: Campylobacter, Plesiomonas shigelloides, Salmonella, Vibrio species, Vibrio cholerae, Yersinia enterocolitica, Shiga toxin-producing E coli (STEC) including E coli O157, Enterotoxigenic E coli (ETEC), Shigella/Enteroinvasive E coli (EIEC), Cryptosporidium, Cyclospora cayetanensis, Entamoeba histolytica, Giardia lamblia, Adenovirus F 40/41, Astrovirus, Norovirus GI/GII, Rotavirus A, Sapovirus Normal [facility] Comment on above: Performed By: #### B FGI #### [address] [id number] Gastrointestinal Panel by GARRY Morales 06-04-2022 Gastrointestinal PCR Panel NEGATIVE: No targets were detected by the [employer] Gastrointestinal PCR Panel. _ The [employer] Gastrointestinal PCR Panel can detect the following targets: Campylobacter, Plesiomonas shigelloides, Salmonella, Vibrio species, Vibrio cholerae, Yersinia enterocolitica, Shiga toxin-producing E coli (STEC) including E coli O157, Enterotoxigenic E coli (ETEC), Shigella/Enteroinvasive E coli (EIEC), Cryptosporidium, Cyclospora cayetanensis, Entamoeba histolytica, Giardia lamblia, Adenovirus F 40/41, Astrovirus, Norovirus GI/GII, Rotavirus A, Sapovirus [facility] Test Performed by [facility], [address] [place] [id number] [place] [address] LAB Glucose,Bedsideon 06-04-2022 Glucose [Mass/Vol] 89 mg/dL Normal 70-[address] [place] [address] Comment on above: Result Comment: Test performed by glucose meter. Results may be 10%-15% lower than serum/plasma values. (CLIA ID [id number]) Performed By: #### N A3 #### [facility] [address] [place] [address] Glucose [Mass/Vol] 104 mg/dL High 70-100 [facility] Comment on above: Result Comment: Test performed by glucose meter. Results may be 10%-15% lower than serum/plasma values. (CLIA ID [id number]) Performed By: #### N A3 #### [facility] [address] [place] [address] Glucose [Mass/Vol] 122 mg/dL High 70-100 [facility] Comment on above: Result Comment: Test performed by glucose meter. Results may be 10%-15% lower than serum/plasma values. (CLIA ID [id number]) Performed By: #### N A3 #### [facility] [address] [facility] [place] [address] Glucose [Mass/Vol] 100 mg/dL Normal 70-100 [facility] Comment on above: Result Comment: Test performed by glucose meter. Results may be 10%-15% lower than serum/plasma values. (CLIA ID [id number]) Performed By: #### B GLU #### [facility] [address] [place] [address] Hemoglobin A1Con 06-04-2022 Glucose [Mass/Vol] 94 mg/dL Normal [facility] Comment on above: Performed By: #### H A1C2 #### [facility] [address] [facility] [place] [address] HbA1c (Bld) [Mass fraction] 4.9 % Normal [facility] Comment on above: Result Comment: Norm al less than 5.7% Prediabetes 5.7% to 6.4% Diabetes 6.5% or higher --HgbA1C levels may not be accurate in patients who have renal disease, received recent blood transfusions, are anemic, or who have dyshemoglobinemia. Performed By: #### H A1C2 #### [facility] [address] [place] [address] Hemoglobin A1con 06-04-2022 HbA1c (Bld) [Mass fraction] 4.9 % [facility] Comment on above: Normal less than 5.7 % Prediabetes 5.7% to 6.4% Diabetes 6.5% or higher --HgbA1C levels may not be accurate in patients who have renal disease, received recent blood transfusions, are anemic, or who have dyshemoglobinemia. Magnesium [Mass/Vol] 94 mg/dL [facility] Test Performed by [facility], [address] [place], [place] [address] [facility] Hemogramon 06-04-2022 Erythrocyte distribution width (RBC) [Ratio] 13.2 % Normal 11.5-14.5 [facility] Comment on above: Performed By: #### B GLU #### [facility] [address] [place] [address] Hematocrit (Bld) [Volume fraction] 23.4 % Low 40.0-52.0 [facility] Comment on above: Performed By: #### B GLU #### [facility] [address] [place] [address] Hemoglobin (Bld) [Mass/Vol] 8.0 g/dL Low 13.0-18.0 [facility] Comment on above: Performed By: #### B GLU #### [facility] [address] [place] [address] MCH (RBC) [Entitic mass] 34.5 pg High 26.0-34.0 [facility] Comment on above: Performed By: #### B GLU #### [facility] [address] [place] [address] MCHC 34.3 % Normal 32.0-36.0 [facility] Comment on above: Performed By: #### B GLU #### [facility] [address] [place] [address] MCV (RBC) [Entitic vol] 100.5 fL High 80.0-98.0 [facility] Comment on above: Performed By: #### B GLU #### [facility] [address] [place] [address] Platelet mean volume (Bld) [Entitic vol] 9.2 fL Normal 7.4-12.4 [facility] Comment on above: Result Comment: MPV is a calculated measurement using platelet volume ratio. Performed By: #### B GLU #### [facility] [address] [place] [address] Platelets (Bld) [#/Vol] 72 10*3/uL Low 140-440 [facility] Comment on above: Performed By: #### B GLU #### [facility] [address] [place] [address] RBC (Bld) [#/Vol] 2.33 10*6/uL Low 4.40-5.90 [facility] Comment on above: Performed By: #### B GLU #### [facility] [address] [place] [address] WBC (Bld) [#/Vol] 2.4 10*3/uL Low 3.6-10.7 [facility] Comment on above: Performed By: #### B GLU #### [facility] [address] [place] [address] Hemogram w/ Autodiffon 06-04 Erythrocyte distribution width (RBC) [Ratio] 13.3 % Normal 11.5-14.5 [facility] Comment on above: Performed By: #### N A3 #### [facility] [address] [place] [address] Hematocrit (Bld) [Volume fraction] 30.5 % Low 40.0-52.0 [facility] Comment on above: Performed By: #### N A3 #### [facility] [address] [place] [address] Hemoglobin (Bld) [Mass/Vol] 10.5 g/dL Low 13.0-18.0 [facility] Comment on above: Performed By: #### N A3 #### [facility] [address] [place] [address] MCH (RBC) [Entitic mass] 34.3 pg High 26.0-34.0 [facility] Comment on above: Performed By: #### N A3 #### [facility] [address] [place] [address] MCHC 34.5 % Normal 32.0-36.0 [facility] Comment on above: Performed By: #### N A3 #### [facility] [address] [place] [address] MCV (RBC) [Entitic vol] 99.5 fL High 80.0-98.0 [facility] Comment on above: Performed By: #### N A3 #### [facility] [address] [place] [address] Platelet mean volume (Bld) [Entitic vol] 9.0 fL Normal 7.4-12.4 [facility] Comment on above: Result Comment: MPV is a calculated measurement using platelet volume ratio. Performed By: #### N A3 #### [facility] [address] [place] [address] Platelets (Bld) [#/Vol] 98 10*3/uL Low 140-440 [facility] Comment on above: Performed By: #### N A3 #### [facility] [address] [place] [address] RBC (Bld) [#/Vol] 3.07 10*6/uL Low 4.40-5.90 [facility] Comment on above: Performed By: #### N A3 #### [facility] [address] [place] [address] WBC (Bld) [#/Vol] 3.5 10*3/uL Low 3.6-10.7 [facility] Comment on above: Performed By: #### N A3 #### [facility] [address] [place] [address] Hepatic Functionon 2 ALP [Catalytic activity/Vol] 52 U/L Normal 38-126 [facility] Comment on above: Performed By: #### N A3 #### [facility] [address] [place] [address] ALT [Catalytic activity/Vol] 182 U/L High 0-49 [facility] Comment on above: Result Comment: The ALT test is performed by an updated assay method. Please note that the reference intervals have been changed and are now sex specific. Performed By: #### N A3 #### [facility] [address] [place] [address] AST [Catalytic activity/Vol] 192 U/L High 15-46 [facility] Comment on above: Performed By: #### N A3 #### [facility] [address] [place] [address] Bilirubin [Mass/Vol] 0.4 mg/dL Normal 0.2-1.3 [facility] Comment on above: Performed By: #### N A3 #### [facility] [address] [place] [address] Bilirubin.indirect [Mass/Vol] 0.0 mg/dL Normal 0.0-0.3 [facility] Comment on above: Performed By: #### N A3 #### [facility] [address] [place] [address] Protein [Mass/Vol] 5.8 g/dL Low 6.3-8.2 [facility] Comment on above: Performed By: #### N A3 #### [facility] [address] [place] [address] Albumin [Mass/Vol] 3.6 g/dL Normal 3.5-5.0 [facility] Comment on above: Performed By: #### N A3 #### [facility] [address] [place] [address] Hepatic Function Panelon Albumin [Mass/Vol] 3.6 g/dL 3.5 - 5 g/dL [facility] ALP (Bld) [Catalytic activity/Vol] 52 U/L 38 - 126 U/L [facility] ALT [Catalytic activity/Vol] 182 U/L High 0 - 49 U/L [facility] Comment on above: The ALT test is perf ormed by an updated assay method. Please note that the reference intervals have been changed and are now sex specific. AST [Catalytic activity/Vol] 192 U/L High 15 - 46 U/L [facility] Bilirubin [Mass/Vol] 0.4 mg/dL 0.2 - 1 .3 mg/dL [facility] Bilirubin.indirect [Mass/Vol] 0.0 mg/dL 0 - 0.3 mg/dL [facility] Free PSA/Total PSA [Mass fraction] 5.8 g/dL Low 6.3 - 8.2 g/dL [facility] Interpretation and review of laboratory results Abnormal [facility] Iron AND TIBCon 06-04-2022 Saturation 55 % High 15-50 [facility] Comment on above: Performed By: #### N A3 #### [facility] [address] [place] [address] Total Iron Binding Cap. 216 ug/dL Low 261-497 [facility] Comment on above: Performed By: #### N A3 #### [facility] [address] [place] [address] Iron, Total 119 ug/dL Normal 49-181 [facility] Comment on above: Performed By: #### N A3 #### [facility] [address] [place] [address] Iron and TIBCon 06-04-2022 Interpretation and review of laboratory results Abnormal [facility] Iron [Mass/Vol] 119 ug/dL 49 - 181 ug/dL [facility] Sat 55 % High 15 - 50 % [facility] TIBC 216 ug/dL Low 261 - 497 ug/dL [facility] Test Performed by [facility], [address] [place] [address] [facility] Lipaseon 06-04-2022 Lipase [Catalytic activity/Vol] 99 U/L Normal 23-300 [facility] Comment on above: Performed By: #### N A3 #### [facility] [address] [place] [address] Lipase [Catalytic activity/Vol] 99 U/L 23 - 300 U/L [facility] Manual Diffon 06-04-2022 Abs Eosin Cnt 0.1 10*3/uL Normal 0.0-0.5 [facility] Comment on above: Performed By: #### N A3 #### [facility] [address] [place] [address] Abs Lymph Cnt 0.9 10*3/uL Low 1.1-4.5 [facility] Comment on above: Performed By: #### N A3 #### [place] [address] [place] [address] Abs Monocyte Cnt 0.3 10*3/uL Normal 0.2-1.1 [facility] Comment on above: Performed By: #### N A3 #### [facility] [address] [place] [address] Abs Neutrophile Cnt 2.2 10*3/uL Normal 2.2-8.2 [facility] Comment on above: Performed By: #### N A3 #### [facility] [address] [place] [address] Eosinophils 3 % Normal 1-6 [facility] Comment on above: Performed By: #### N A3 #### [facility] [address] [place] [address] Hypochromia Slight Normal [facility] Comment on above: Performed By: #### N A3 #### [facility] [address] [place] [address] Lymphocytes 26 % Normal 20-40 [facility] Comment on above: Performed By: #### N A3 #### [facility] [address] [place] [address] Monocytes 8 % Normal 2-10 [facility] Comment on above: Performed By: #### N A3 #### [facility] [address] [place] [address] RBC Morphology ABNORMAL Normal [facility] Comment on above: Performed By: #### N A3 #### [facility] [address] [place] [address] Seg Neutrophils 63 % Normal 40-80 [facility] Comment on above: Performed By: #### N A3 #### [facility] [address] [place] [address] Abs Baso Cnt 0.0 10*3/uL Normal 0.0-0.2 [facility] Comment on above: Performed By: #### N A3 #### [facility] [address] [place] [address] Bands 0 % Normal 0-3 [facility] Comment on above: Performed By: #### N A3 #### [facility] [address] [place] [address] Basophils 0 % Normal 0-2 [facility] Comment on above: Performed By: #### N A3 #### [facility] [address] [place] [address] Cells counted 100 Normal [facility] Comment on above: Performed By: #### N A3 #### [facility] [address] [place] [address] Manual Differentialon 2021 Absolute Baso # 0.0 10*3/uL 0 - 0.2 10*3/uL [facility] Absolute Eos # 0.1 10*3/uL 0 - 0.5 10*3/uL [facility] Absolute Lymph # 0.9 10*3/uL Low 1.1 - 4.5 10*3/uL [facility] Absolute [place] # 0.3 10*3/uL 0.2 - 1.1 10*3/uL [facility] Absolute Neut # 2.2 10*3/uL 2.2 - 8.2 10*3/uL [facility] Bands 0 % 0 - 3 % [facility] Basophils/100 WBC (Bld) 0 % 0 - 2 % [facility] Eosinophils/100 WBC (Bld) 3 % 1 - 6 % [facility] Hypochromia Slight [facility] Interpretation and review of laboratory results Abnormal [facility] Lymphocytes/100 WBC (Bld) 26 % 20 - 40 % [facility] Monocytes/100 WBC (Bld) 8 % 2 - 10 % [facility] RBC (Bld) [#/Vol] ABNORMAL [facility] Seg Neutrophils 63 % 40 - 80 % [facility] TOTAL CELLS COUNTED 100 [facility] Test Performed by [facility], [address] [place], [address] LAB [facility] No Panel Informationon 06-04 [facility] Test Performed by [facility], [facility] [address] [place], [address] LAB [facility] Interpretation and review of laboratory results Abnormal [facility] Test Performed by [facility], [facility] [address] [place], [address] LAB [facility] Osmolalityon 06-04-2022 Serum Osmolality 265 mosm/kg Low 280 - 300 mosm/kg [facility] Osmolality,Serumon 2 Osmolality,Serum 265 mosm/kg Low 280-300 [facility] Comment on above: Performed By: #### B GLU #### [facility] [address] [place] [address] POCT GlucoseOrdered By: Alexander Walsh on 06-04-2022 Glucose [Mass/Vol] 89 mg/dL 70 - 100 mg/dL [facility] Work Phone: Comment on above: Test performed by gl ucose meter. Results may be 10%-15% lower than serum/plasma values. (CLIA ID [id number]) [facility] Work Phone: POCT Glucoseon 06-04-2022 Test Performed by [facility], [address] [place], [address] LAB Glucose [Mass/Vol] 104 mg/dL High 70 - 100 mg/dL [facility] Work Phone: Comment on above: Test performed by gl ucose meter. Results may be 10%-15% lower than serum/plasma values. (CLIA ID [id number]) Interpretation and review of laboratory results Abnormal [facility] Work Phone: Test Performed by [facility], [address] LAB [facility] Work Phone: Test Performed by [facility], [address] [place], [place], [place] [id number] [place] [address] LAB Test Performed by [facility], [address] [place], [place], [place] [id number] [place] [address] LAB POCT GlucoseOrdered By: Carter Scott on 06-04-2022 Glucose [Mass/Vol] 122 mg/dL High 70 - 100 mg/dL [facility] Work Phone: Comment on above: Test performed by gl ucose meter. Results may be 10%-15% lower than serum/plasma values. (CLIA ID [id number]) Interpretation and review of laboratory results Abnormal [facility] Work Phone: [facility] Work Phone: POCT GlucoseOrdered By: Arabella Robert on 06-04-2022 Glucose [Mass/Vol] 100 mg/dL 70 - 100 mg/dL [facility] Work Phone: Comment on above: Test performed by gl ucose meter. Results may be 10%-15% lower than serum/plasma values. (CLIA ID [id number]) [facility] Work Phone: Prothrombin Timeon 2 INR 1.3 High 0.9-1.1 [facility] [employer] [facility] Comment on above: Result Comment: Fantasma mmended Anticoagulant Therapy: SEE BELOW ----- INR of 2.0 - 3.0 : - Prophylaxis of Venous Thrombosis (high-risk surgery) - Treatment of Venous Thrombosis - Treatment of Pulmonary Embolism (Includes tissue heart valves, Acute Myocardial Infarction to prevent systemic embolism, Valvular Heart Disease, and Atrial Fibrillation) ----- INR of 2.5 - 3.5 : - Mechanical Prosthetic Valves (high risk) - If oral anticoagulant therapy is used to prevent Myocardial Infarction Performed By: #### B GLU #### [facility] [address] [place] [address] PT Coag (PPP) [Time] 13.8 s High 9.0-12.0 [facility] [employer] [facility] Comment on above: Result Comment: . Performed By: #### B GLU #### [facility] [address] [place] [address] Protime-INRon 06-04-2022 INR Coag (Bld) [Relative time] 1.3 {INR} High [facility] Comment on above: Recommended Anticoag ulant Therapy: SEE BELOW ----- INR of 2.0 - 3.0 : - Prophylaxis of Venous Thrombosis (high-risk surgery) - Treatment of Venous Thrombosis - Treatment of Pulmonary Embolism (Includes tissue heart valves, Acute Myocardial Infarction to prevent systemic embolism, Valvular Heart Disease, and Atrial Fibrillation) ----- INR of 2.5 - 3.5 : - Mechanical Prosthetic Valves (high risk) - If oral anticoagulant therapy is used to prevent Myocardial Infarction PT Coag (PPP) [Time] 13.8 s High 9 - 12 s [facility] Comment on above: . Sodiumon 06-04-2022 Interpretation and review of laboratory results Abnormal [facility] Sodium [Moles/Vol] 127 mmol/L Low 135 - 145 mmol/L [facility] Test Performed by [facility], [address] [place] [address] LAB [facility] Sodium [Moles/Vol] 125 mmol/L Low 135-145 [facility] Comment on above: Performed By: #### B GLU #### [facility] [address] [place] [address] Interpretation and review of laboratory results Abnormal [facility] Sodium [Moles/Vol] 125 mmol/L Low 135 - 145 mmol/L [facility] Test Performed by [facility], [address] [place] [address] LAB [facility] Sodium [Moles/Vol] 127 mmol/L Low 135-145 [facility] Comment on above: Performed By: #### B GLU #### [facility] [address] [place] [address] Interpretation and review of laboratory results Abnormal [facility] Sodium [Moles/Vol] 127 mmol/L Low 135 - 145 mmol/L [facility] Test Performed by [facility], [address] [place] [address] LAB [facility] TSHon 06-04-2022 TSH Qn 2.601 u[IU]/mL 0.465 - 4.68 u[IU]/mL [facility] Test Performed by [facility], [address] [place], [place] [id number] [place] [address] LAB [facility] Thyroid Stim. Hormoneon 05-19 Thyroid Stim. Hormone 2.601 u[IU]/mL Normal 0.465-4.68 0 [facility] Comment on above: Performed By: #### N A3 #### [facility] [address] [place] [address] Vitamin B12on 06-04-2022 Cobalamin (Vitamin B12) [Mass/Vol] 725 pg/mL Normal 239-931 [facility] Comment on above: Performed By: #### N A3 #### [facility] [address] [place] [address] Cobalamin (Vitamin B12) [Mass/Vol] 725 pg/mL 239 - 931 pg/mL [facility] Test Performed by [facility], [address] LAB [facility] CBC with Auto Differentialon 06-03-2022 Absolute Baso # 0.0 10*3/uL 0 - 0.2 10*3/uL [facility] Absolute Neut # 2.0 10*3/uL 1.8 - 7 10*3/uL [facility] Basophils/100 WBC (Bld) 0.5 % 0 - 2 % [facility] Eosinophils (Bld) [#/Vol] 0.2 10*3/uL 0 - 0.5 10*3/uL [facility] Eosinophils/100 WBC (Bld) 4.5 % 1 - 6 % [facility] Granulocytes/100 WBC (Bld) 50.8 % 40 - 80 % [facility] Hematocrit (Bld) [Volume fraction] 29.3 % Low 40 - 52 % [facility] Hemoglobin (Bld) [Mass/Vol] 10.6 g/dL Low 13 - 18 g/dL [facility] Interpretation and review of laboratory results Abnormal [facility] Lymphocytes (Bld) [#/Vol] 1.4 10*3/uL 1 - 4.3 10*3/uL [facility] Lymphocytes/100 WBC (Bld) 34.8 % 20 - 40 % [facility] MCH (RBC) [Entitic mass] 34.4 pg High 26 - 34 pg [facility] MCHC (RBC) [Mass/Vol] 36.2 % High 32 - 36 % [facility] MCV (RBC) [Entitic vol] 95.1 fL 80 - 98 fL [facility] Monocytes (Bld) [#/Vol] 0.4 10*3/uL 0 - 0.8 10*3/uL [facility] Monocytes/100 WBC (Bld) 8.7 % 2 - 10 % [facility] Platelet distribution width (Bld) [Ratio] 42.4 % High 11.5 - 14.5 % [facility] Platelet mean volume (Bld) [Entitic vol] 11.3 fL 7.4 - 12.4 fL [facility] Comment on above: MPV is a calculated measurement using platelet volume ratio. Platelets (Bld) [#/Vol] 91 10*3/uL Low 140 - 440 10*3/uL [facility] Comment on above: Slide scanned - slig ht thrombocytopenia RBC (Bld) [#/Vol] 3.08 10*6/uL Low 4.4 - 5.9 10*6/uL [facility] WBC (Bld) [#/Vol] 4.0 10*3/uL 3.6 - 10.7 10*3/uL [facility] Test Performed by [facility], [address] , [place], [place] [id number] [place] [address] LAB [facility] Comp Metabolic Panelon 06-03 Albumin [Mass/Vol] 4.0 g/dL Normal 3.5-5.0 [facility] Comment on above: Performed By: #### B GLU #### [facility] [address] [place] [address] ALP [Catalytic activity/Vol] 49 U/L Normal 38-126 [facility] Comment on above: Performed By: #### B GLU #### [facility] [address] [place] [address] ALT [Catalytic activity/Vol] 227 U/L High 0-49 [facility] Comment on above: Result Comment: The ALT test is performed by an updated assay method. Please note that the reference intervals have been changed and are now sex specific. Performed By: #### B GLU #### [facility] [address] [place] [address] Anion gap [Moles/Vol] 13 mmol/L Normal 3-13 [facility] Comment on above: Performed By: #### B GLU #### [facility] [address] [place] [address] AST [Catalytic activity/Vol] 288 U/L High 15-46 [facility] Comment on above: Performed By: #### B GLU #### [facility] [address] [place] [address] Bilirubin [Mass/Vol] 0.6 mg/dL Normal 0.2-1.3 [facility] Comment on above: Performed By: #### B GLU #### [facility] [address] [place] [address] Calcium [Mass/Vol] 8.6 mg/dL Normal 8.4-10.4 [facility] Comment on above: Performed By: #### B GLU #### [facility] [address] [place] [address] Chloride [Moles/Vol] 92 mmol/L Low 98-107 [facility] Comment on above: Performed By: #### B GLU #### [facility] [address] [place] [address] CO2 [Moles/Vol] 14 mmol/L Low 22-30 [facility] Comment on above: Performed By: #### B GLU #### [facility] [address] [place] [address] Creatinine [Mass/Vol] 1.66 mg/dL High 0.52-1.25 [facility] Comment on above: Performed By: #### B GLU #### [facility] [address] [place] [address] GFR/1.73 sq M.predicted among blacks MDRD (S/P/Bld) [Vol rate/Area] 50.3 mL/min/{1.73_m2} Abnormal >60 [facility] Comment on above: Performed By: #### B GLU #### [facility] [address] [place] [address] GFR/1.73 sq M.predicted among non-blacks MDRD (S/P/Bld) [Vol rate/Area] 43.4 mL/min/{1.73_m2} Abnormal >60 [facility] Comment on above: Result Comment: KDIG O guidelines provide the following GFR categories: Stage GFR(ml/min/1.73 m2) Terms G1 >=90 Normal or high G2 60-89 Mildly decreased* G3a 45-59 Mildly to moderately decreased G3b 30-44 Moderately to severely decreased G4 15-29 Severely decreased G5 <15 Kidney failure *Relative to young adult level. In the absence of evidence of kidney damage, neither GFR category G1 nor G2 fulfill the criteria for CKD. The CKD-EPI equation is validated in individuals 18 years of age and older. Currently the best equation for estimating glomerular filtration rate (GFR) from serum creatinine in children is the Bedside Benjamin equation. It is less accurate in patients with extremes of muscle mass, restriction of dietary protein, ingestion of creatine, extra-renal metabolism of creatinine, or treatment with medications that affect renal tubular creatinine secretion. Performed By: #### B GLU #### [facility] [address] [place] [address] Glucose [Mass/Vol] 114 mg/dL High 70-100 [facility] Comment on above: Performed By: #### B GLU #### [facility] [address] [place] [address] Potassium [Moles/Vol] 4.2 mmol/L Normal 3.5-5.1 [facility] Comment on above: Performed By: #### B GLU #### [facility] [address] [place] [address] Protein [Mass/Vol] 6.5 g/dL Normal 6.3-8.2 [facility] Comment on above: Performed By: #### B GLU #### [facility] [address] [place] [address] Sodium [Moles/Vol] 119 mmol/L Critically low 135-145 [facility] Comment on above: Performed By: #### B GLU #### [facility] [address] [place] [address] Urea nitrogen [Mass/Vol] 8 mg/dL Normal 7-17 [facility] Comment on above: Performed By: #### B GLU #### [facility] [address] [place] [address] Complete Urinalysison 2021 VOLUME, URINE 12 ml Normal [facility] Comment on above: Result Comment: . Performed By: #### B GLU #### [facility] [address] [place] [address] Appearance (U) Clear Normal Clear [facility] Comment on above: Result Comment: . Performed By: #### B GLU #### [facility] [address] [place] [address] Bilirubin,Urine Negative Normal Negative [facility] Comment on above: Result Comment: . Performed By: #### B GLU #### [facility] [address] [place] [address] Color (U) LIGHT YELLOW Normal Lt. Yellow [facility] Comment on above: Result Comment: . Performed By: #### B GLU #### [facility] [address] [place] [address] Glucose Ql (U) Normal Normal Normal (<70) [facility] Comment on above: Result Comment: . Performed By: #### B GLU #### [facility] [address] [place] [address] Ketone,Urine Negative Normal Negative [facility] Comment on above: Result Comment: . Performed By: #### B GLU #### [facility] [address] [place] [address] Leukocytes,Urine Negative Normal Negative [facility] Comment on above: Result Comment: . Performed By: #### B GLU #### [facility] [address] [place] [address] Nitrites,Urine Negative Normal Negative [facility] Comment on above: Result Comment: . Performed By: #### B GLU #### [facility] [address] [place] [address] Occult Blood,Urine Negative Normal Negative [facility] Comment on above: Result Comment: . Performed By: #### B GLU #### [facility] [address] [place] [address] pH,Urine 5.5 Normal 5.0-8.0 [facility] Comment on above: Result Comment: . Performed By: #### B GLU #### [facility] [address] [place] [address] Specific [place],Urine 1.007 Normal 1.005 - 1.030 [facility] Comment on above: Result Comment: . Performed By: #### B GLU #### [facility] [address] [place] [address] Total Protein,Urine Negative Normal Negative [facility] Comment on above: Result Comment: . Performed By: #### B GLU #### [facility] [address] [place] [address] Urobilinogen,Urine Normal Normal Normal (0-1) [facility] Comment on above: Result Comment: . Performed By: #### B GLU #### [facility] [address] [place] [address] Comprehensive Metabolic Pane peter 06-03-2022 Albumin [Mass/Vol] 4.0 g/dL 3.5 - 5 g/dL [facility] ALP (Bld) [Catalytic activity/Vol] 49 U/L 38 - 126 U/L [facility] ALT [Catalytic activity/Vol] 227 U/L High 0 - 49 U/L [facility] Comment on above: The ALT test is perf ormed by an updated assay method. Please note that the reference intervals have been changed and are now sex specific. Anion gap [Moles/Vol] 13 mmol/L 3 - 13 mmol/L [facility] AST [Catalytic activity/Vol] 288 U/L High 15 - 46 U/L [facility] Bilirubin [Mass/Vol] 0.6 mg/dL 0.2 - 1 .3 mg/dL [facility] Calcium [Mass/Vol] 8.6 mg/dL 8.4 - 10. 4 mg/dL [facility] Chloride [Moles/Vol] 92 mmol/L Low 98 - 10 7 mmol/L [facility] CO2 [Moles/Vol] 14 mmol/L Low 22 - 30 mmol/L [facility] Creatinine [Mass/Vol] 1.66 mg/dL High 0.52 - 1.25 mg/dL [facility] EGFR IF NonAfrican Polish 43.4 mL/min Abnormal 60 - PINF mL/min [facility] Comment on above: KDIGO guidelines pro vide the following GFR categories: Stage GFR(ml/min/1.73 m2) Terms G1 >=90 Normal or high G2 60-89 Mildly decreased* G3a 45-59 Mildly to moderately decreased G3b 30-44 Moderately to severely decreased G4 15-29 Severely decreased G5 <15 Kidney failure *Relative to young adult level. In the absence of evidence of kidney damage, neither GFR category G1 nor G2 fulfill the criteria for CKD. The CKD-EPI equation is validated in individuals 18 years of age and older. Currently the best equation for estimating glomerular filtration rate (GFR) from serum creatinine in children is the Bedside Benjamin equation. It is less accurate in patients with extremes of muscle mass, restriction of dietary protein, ingestion of creatine, extra-renal metabolism of creatinine, or treatment with medications that affect renal tubular creatinine secretion. Free PSA/Total PSA [Mass fraction] 6.5 g/dL 6.3 - 8.2 g/dL [facility] GFR/1.73 sq M.predicted among blacks MDRD (S/P/Bld) [Vol rate/Area] 50.3 mL/min/{1.73_m2} Abnormal 60 - PINF mL/min [facility] Glucose [Mass/Vol] 114 mg/dL High 70 - 100 mg/dL [facility] Interpretation and review of laboratory results Abnormal [facility] Potassium [Moles/Vol] 4.2 mmol/L 3.5 - 5.1 mmol/L [facility] Sodium [Moles/Vol] 119 mmol/L Critically low 135 - 1 45 mmol/L [facility] Urea nitrogen (BldV) [Mass/Vol] 8 mg/dL 7 - 17 mg/dL [facility] Ethanolon 06-03-2022 Ethanol Lvl 0.132 g/dL High 0 - 0.01 g/dL [facility] Comment on above: NOTE: This result is for medical treatment only. Analysis performed using non-forensic procedures. Interpretation and review of laboratory results Abnormal [facility] Test Performed by [facility], [address] , [place], [place] [id number] [place] [address] LAB [facility] Ethanol Serum/Plasmaon 06-03 Ethanol-Serum/Plasma 0.132 g/dL High 0.000-0.010 [facility] Comment on above: Result Comment: NOTE : This result is for medical treatment only. Analysis performed using non-forensic procedures. Performed By: #### B GLU #### [facility] [address] [place] [address] Hemogram w/ Autodiffon 06-03 Abs Baso Cnt 0.0 10*3/uL Normal 0.0-0.2 [facility] Comment on above: Performed By: #### B GLU #### [facility] [address] [place] [address] Abs Neutrophile Cnt 2.0 10*3/uL Normal 1.8-7.0 [facility] Comment on above: Performed By: #### B GLU #### [facility] [address] [place] [address] Basophils/100 WBC (Bld) 0.5 % Normal 0.0-2.0 [facility] Comment on above: Performed By: #### B GLU #### [facility] [address] [place] [address] Eosinophils (Bld) [#/Vol] 0.2 10*3/uL Normal 0.0-0.5 [facility] Comment on above: Performed By: #### B GLU #### [facility] [address] [place] [address] Eosinophils/100 WBC (Bld) 4.5 % Normal 1.0-6.0 [facility] Comment on above: Performed By: #### B GLU #### [facility] [address] [place] [address] Erythrocyte distribution width (RBC) [Ratio] 42.4 % High 11.5-14.5 [facility] Comment on above: Performed By: #### B GLU #### [facility] [address] [place] [address] Granulocytes/100 WBC (Bld) 50.8 % Normal 40.0-80.0 [facility] Comment on above: Performed By: #### B GLU #### [facility] [address] [place] [address] Hematocrit (Bld) [Volume fraction] 29.3 % Low 40.0-52.0 [facility] Comment on above: Performed By: #### B GLU #### [facility] [address] [place] [address] Hemoglobin (Bld) [Mass/Vol] 10.6 g/dL Low 13.0-18.0 [facility] Comment on above: Performed By: #### B GLU #### [place] [address] [place] [address] Lymphocytes (Bld) [#/Vol] 1.4 10*3/uL Normal 1.0-4.3 [facility] Comment on above: Performed By: #### B GLU #### [facility] [address] [place] [address] Lymphocytes/100 WBC (Bld) 34.8 % Normal 20.0-40.0 [facility] Comment on above: Performed By: #### B GLU #### [facility] [address] [place] [address] MCH (RBC) [Entitic mass] 34.4 pg High 26.0-34.0 [facility] Comment on above: Performed By: #### B GLU #### [facility] [address] [place] [address] MCHC 36.2 % High 32.0-36.0 [facility] Comment on above: Performed By: #### B GLU #### [facility] [address] [place] [address] MCV (RBC) [Entitic vol] 95.1 fL Normal 80.0-98.0 [facility] Comment on above: Performed By: #### B GLU #### [facility] [address] [place] [address] Monocytes (Bld) [#/Vol] 0.4 10*3/uL Normal 0.0-0.8 [facility] Comment on above: Performed By: #### B GLU #### [facility] [address] [place] [address] Monocytes/100 WBC (Bld) 8.7 % Normal 2.0-10.0 [facility] Comment on above: Performed By: #### B GLU #### [facility] [address] [place] [address] Platelet mean volume (Bld) [Entitic vol] 11.3 fL Normal 7.4-12.4 [facility] Comment on above: Result Comment: MPV is a calculated measurement using platelet volume ratio. Performed By: #### B GLU #### [facility] [address] [place] [address] Platelets (Bld) [#/Vol] 91 10*3/uL Low 140-440 [facility] Comment on above: Result Comment: Slid e scanned - slight thrombocytopenia Performed By: #### B GLU #### [facility] [address] [place] [address] RBC (Bld) [#/Vol] 3.08 10*6/uL Low 4.40-5.90 [facility] Comment on above: Performed By: #### B GLU #### [facility] [address] [place] [address] WBC (Bld) [#/Vol] 4.0 10*3/uL Normal 3.6-10.7 [facility] Comment on above: Performed By: #### B GLU #### [facility] [address] [place] [address] Lipaseon 06-03-2022 Lipase [Catalytic activity/Vol] 142 U/L Normal 23-300 [facility] Comment on above: Performed By: #### B GLU #### [facility] [address] [place] [address] Lipase [Catalytic activity/Vol] 142 U/L 23 - 300 U/L [facility] No Panel Informationon 06-03 Test Performed by [facility], [address] [place], [place] [address] [place] [address] LAB [facility] Troponin Ion 06-03-2022 Troponin I.cardiac [Mass/Vol] ng/mL Normal 0.000-0.034 [facility] Comment on above: Result Comment: . Performed By: #### B GLU #### [facility] [address] [place] [address] Troponin x1on 06-03-2022 Troponin I.cardiac [Mass/Vol] ng/mL 0 - 0.034 ng/mL [facility] Comment on above: . Urinalysison 06-03-2022 Appearance (U) Clear Clear NA [facility] Comment on above: . Bilirubin Urine Negative Negative mg/dL [facility] Comment on above: . Color (U) LIGHT YELLOW Lt. Yellow NA [facility] Comment on above: . Glucose, Ur Normal Normal (<70) mg/dL [facility] Comment on above: . Ketones Ql (U) Negative Negative mg/dL [facility] Comment on above: . LEUKOCYTES, UA Negative Negative Emma/uL [facility] Comment on above: . Nitrite, Urine Negative Negative NA [facility] Comment on above: . Occult Blood,Urine Negative Negative mg/dL [facility] Comment on above: . pH (U) 5.5 [pH] [facility] Comment on above: . Specific [place], Urine 1.007 [facility] Comment on above: . Total Protein, Urine Negative Negativ e mg/dL [facility] Comment on above: . Urobilinogen, Urine Normal Normal ( 0-1) mg/dL [facility] Comment on above: . Volume 12 ml [facility] Comment on above: . Test Performed by [facility], [address] , [place], [place] [id number] [place] [address] LAB [facility] Basic Metabolic Panelon 04-19 Calcium [Mass/Vol] 9.3 mg/dL Normal 8.4-10.4 [facility] Comment on above: Performed By: #### N A3 #### [facility] [address] [place] [address] Glucose [Mass/Vol] 99 mg/dL Normal 70-100 [facility] Comment on above: Performed By: #### N A3 #### [facility] [address] [place] [address] Urea nitrogen [Mass/Vol] 5 mg/dL Low 7-17 [facility] Comment on above: Performed By: #### N A3 #### [facility] [address] [place] [address] Anion gap [Moles/Vol] 18 mmol/L High 3-13 [facility] Comment on above: Performed By: #### N A3 #### [facility] [address] [place] [address] CO2 [Moles/Vol] 12 mmol/L Low 22-30 [facility] Comment on above: Performed By: #### N A3 #### [facility] [address] [place] [address] Creatinine [Mass/Vol] 1.40 mg/dL High 0.52-1.25 [facility] Comment on above: Performed By: #### N A3 #### [facility] [address] [place] [address] GFR/1.73 sq M.predicted among blacks MDRD (S/P/Bld) [Vol rate/Area] 61.8 mL/min/{1.73_m2} Normal >60 [facility] Comment on above: Performed By: #### N A3 #### [facility] [address] [place] [address] GFR/1.73 sq M.predicted among non-blacks MDRD (S/P/Bld) [Vol rate/Area] 53.4 mL/min/{1.73_m2} Abnormal >60 [facility] Comment on above: Result Comment: KDIG O guidelines provide the following GFR categories: Stage GFR(ml/min/1.73 m2) Terms G1 >=90 Normal or high G2 60-89 Mildly decreased* G3a 45-59 Mildly to moderately decreased G3b 30-44 Moderately to severely decreased G4 15-29 Severely decreased G5 <15 Kidney failure *Relative to young adult level. In the absence of evidence of kidney damage, neither GFR category G1 nor G2 fulfill the criteria for CKD. The CKD-EPI equation is validated in individuals 18 years of age and older. Currently the best equation for estimating glomerular filtration rate (GFR) from serum creatinine in children is the Bedside Benjamin equation. It is less accurate in patients with extremes of muscle mass, restriction of dietary protein, ingestion of creatine, extra-renal metabolism of creatinine, or treatment with medications that affect renal tubular creatinine secretion. Performed By: #### N A3 #### [facility] [address] [place] [address] Potassium [Moles/Vol] 3.5 mmol/L Normal 3.5-5.1 [facility] Comment on above: Performed By: #### N A3 #### [facility] [address] [place] [address] Sodium [Moles/Vol] 137 mmol/L Normal 135-145 [facility] Comment on above: Performed By: #### N A3 #### [facility] [facility] [address] [place] [address] Chloride [Moles/Vol] 107 mmol/L Normal 98-107 [facility] Comment on above: Performed By: #### N A3 #### [facility] [address] [place] [address] Anion gap [Moles/Vol] 18 mmol/L High 3 - 13 mmol/L [facility] Work Phone: [phone] Calcium [Mass/Vol] 9.3 mg/dL 8.4 - 10. 4 mg/dL [facility] Work Phone: [phone] Chloride [Moles/Vol] 107 mmol/L 98 - 10 7 mmol/L [facility] Work Phone: ) [phone] CO2 [Moles/Vol] 12 mmol/L Low 22 - 30 mmol/L [facility] Work Phone: [phone] Creatinine [Mass/Vol] 1.4 mg/dL High 0.52 - 1.25 mg/dL [facility] Work Phone: [phone] EGFR IF NonAfrican Polish 53.4 mL/min Abnormal 60 - PINF mL/min [facility] Work Phone: [phone] Comment on above: KDIGO guidelines pro vide the following GFR categories: Stage GFR(ml/min/1.73 m2) Terms G1 >=90 Normal or high G2 60-89 Mildly decreased* G3a 45-59 Mildly to moderately decreased G3b 30-44 Moderately to severely decreased G4 15-29 Severely decreased G5 <15 Kidney failure *Relative to young adult level. In the absence of evidence of kidney damage, neither GFR category G1 nor G2 fulfill the criteria for CKD. The CKD-EPI equation is validated in individuals 18 years of age and older. Currently the best equation for estimating glomerular filtration rate (GFR) from serum creatinine in children is the Bedside Benjamin equation. It is less accurate in patients with extremes of muscle mass, restriction of dietary protein, ingestion of creatine, extra-renal metabolism of creatinine, or treatment with medications that affect renal tubular creatinine secretion. GFR/1.73 sq M.predicted among blacks MDRD (S/P/Bld) [Vol rate/Area] 61.8 mL/min/{1.73_m2} 60 - PINF mL/min [facility] Work Phone: [phone] Glucose [Mass/Vol] 99 mg/dL 70 - 100 mg/dL [facility] Work Phone: [phone] Interpretation and review of laboratory results Abnormal [facility] Work Phone: [phone] Potassium [Moles/Vol] 3.5 mmol/L 3.5 - 5.1 mmol/L [facility] Work Phone: [phone] Sodium [Moles/Vol] 137 mmol/L 135 - 145 mmol/L [facility] Work Phone: [phone] Urea nitrogen (BldV) [Mass/Vol] 5 mg/dL Low 7 - 17 mg/dL [facility] Work Phone: [phone] Test Performed by [facility], [address] , [place], [place] [id number] [place] [address] LAB [facility] Work Phone: ) CBC with Auto Differentialon 05-15-2022 Absolute Baso # 0.0 10*3/uL 0 - 0.2 10*3/uL [facility] Work Phone: [phone] Absolute Neut # 3.4 10*3/uL 1.8 - 7 10*3/uL [facility] Work Phone: () [phone] Basophils/100 WBC (Bld) 0.8 % 0 - 2 % [facility] Work Phone: ) [phone] Eosinophils (Bld) [#/Vol] 0.0 10*3/uL 0 - 0.5 10*3/uL [facility] Work Phone: [phone] Eosinophils/100 WBC (Bld) 0.2 % Low 1 - 6 % [facility] Work Phone: () [phone] Granulocytes/100 WBC (Bld) 67.5 % 40 - 80 % [facility] Work Phone: () Hematocrit (Bld) [Volume fraction] 34.3 % Low 40 - 52 % [facility] Work Phone: [phone] Hemoglobin (Bld) [Mass/Vol] 11.8 g/dL Low 13 - 18 g/dL [facility] Work Phone: [phone] Interpretation and review of laboratory results Abnormal [facility] Work Phone: () [phone] Lymphocytes (Bld) [#/Vol] 1.2 10*3/uL 1 - 4.3 10*3/uL [facility] Work Phone: [phone] Lymphocytes/100 WBC (Bld) 23.3 % 20 - 40 % [facility] Work Phone: [phone] MCH (RBC) [Entitic mass] 34.1 pg High 26 - 34 pg [facility] Work Phone: [phone] MCHC (RBC) [Mass/Vol] 34.4 % 32 - 36 % [facility] Work Phone: [phone]() MCV (RBC) [Entitic vol] 99.1 fL High 80 - 98 fL [facility] Work Phone: () Monocytes (Bld) [#/Vol] 0.4 10*3/uL 0 - 0.8 10*3/uL [facility] Work Phone: () [phone] Monocytes/100 WBC (Bld) 7.8 % 2 - 10 % [facility] Work Phone: [phone]() Platelet distribution width (Bld) [Ratio] 13.0 % 11.5 - 14.5 % [facility] Work Phone: ) Platelet mean volume (Bld) [Entitic vol] 9.7 fL 7.4 - 12.4 fL [facility] Work Phone: [phone] Comment on above: MPV is a calculated measurement using platelet volume ratio. Platelets (Bld) [#/Vol] 112 10*3/uL Low 140 - 440 10*3/uL [facility] Work Phone: [phone] RBC (Bld) [#/Vol] 3.46 10*6/uL Low 4.4 - 5.9 10*6/uL [facility] Work Phone: [phone] WBC (Bld) [#/Vol] 5.1 10*3/uL 3.6 - 10.7 10*3/uL [facility] Work Phone: [phone] Test Performed by [facility], [facility] [place] , [address] LAB [facility] Work Phone: [phone] Abdomen Pelvis Wo Contras ton 05-15-2022 Patient Name: WOODY NI Computed Tomography ACCESSION EXAM DATE/TIME PROCEDURE ORDERING PROVIDER [id number] 05/15/2022 17:[address] Abdomen/Pelvis (No MD AMADA, HANY Lawson PO, No IV) CPT code 18004 Reason For Exam (CT Abdomen/Pelvis (No PO, No IV)) RIGHT flank pain, Hx: kidney stones Report Examination: CT abdomen/pelvis Indication: RIGHT flank pain, Hx: kidney stones Technique: Axial CT images of the abdomen/pelvis were obtained without oral or IV contrast at 3 mm intervals. Images were acquired from the lung bases through the symphysis pubis. Coronal and sagittal reconstructions were also provided for review. Findings: Diffusely diminished attenuation of the liver is present. There are two tiny nonobstructing renal stones of the right kidney. No significant hydronephrosis of either kidney. The solid organs in the upper abdomen are otherwise unremarkable. Large and small bowel are grossly unremarkable. Question diffuse mural thickening along the greater curvature the stomach. Mild aortoiliac calcification present. No abdominal/pelvic adenopathy. Levoscoliosis of the lumbar spine is present with fairly advanced degenerative disc disease, greatest at L2/L3 and L4/L5. Laminectomy changes of the lumbar spine are present. The lung bases are grossly clear. Left posterior rib fracture is present with mild hypertrophic change. Impression: Punctate nonobstructing renal stones of the right kidney. No hydronephrosis. Question diffuse mural thickening along the greater curvature the stomach. Follow-up EGD is suggested. Computed Tomography Report Report Dictated on --- Final --- Dictating Physician: MD KAM KRIKOR Signed Date and Time: 05/15/2022 5:58 pm Signed by: MD KAM KRIKOR Transcribed Date and Time: 05/15/2022 5:59 [facility] Veronica Kam MD - 05/15/2022 Patient Name: WOODY NI Computed Tomography ACCESSION EXAM DATE/TIME PROCEDURE ORDERING PROVIDER [id number] 05/15/2022 17:[address] Abdomen/Pelvis (Soheila YBARRA MD, HANY Lawson PO, No IV) CPT code 14201 Reason For Exam (CT Abdomen/Pelvis (No PO, No IV)) RIGHT flank pain, Hx: kidney stones Report Examination: CT abdomen/pelvis Indication: RIGHT flank pain, Hx: kidney stones Technique: Axial CT images of the abdomen/pelvis were obtained without oral or IV contrast at 3 mm intervals. Images were acquired from the lung bases through the symphysis pubis. Coronal and sagittal reconstructions were also provided for review. Findings: Diffusely diminished attenuation of the liver is present. There are two tiny nonobstructing renal stones of the right kidney. No significant hydronephrosis of either kidney. The solid organs in the upper abdomen are otherwise unremarkable. Large and small bowel are grossly unremarkable. Question diffuse mural thickening along the greater curvature the stomach. Mild aortoiliac calcification present. No abdominal/pelvic adenopathy. Levoscoliosis of the lumbar spine is present with fairly advanced degenerative disc disease, greatest at L2/L3 and L4/L5. Laminectomy changes of the lumbar spine are present. The lung bases are grossly clear. Left posterior rib fracture is present with mild hypertrophic change. Impression: Punctate nonobstructing renal stones of the right kidney. No hydronephrosis. Question diffuse mural thickening along the greater curvature the stomach. Follow-up EGD is suggested. Computed Tomography Report Report Dictated on --- Final --- Dictating Physician: MD KAM KRIKOR Signed Date and Time: 05/15/2022 5:58 pm Signed by: MD KAM KRIKOR Transcribed Date and Time: 05/15/2022 5:59 [facility] Work Phone: Radiology Study observation (narrative) [facility] Work Phone: CT Abdomen Pelvis Wo Contras tOrdered By: Veronica Kam on 05-15-2022 [facility] Work Phone: CT Abdomen/Pelvis w/o Contra ston 05-15-2022 CT Abdomen/Pelvis w/o Contrast Patient Name: WOODY NI Computed Tomography ACCESSION EXAM DATE/TIME PROCEDURE ORDERING PROVIDER [id number] 05/15/2022 17:[address] Abdomen/Pelvis (No MD AMADA, HANY Lawson PO, No IV) CPT code 65015 Reason For Exam (CT Abdomen/Pelvis (No PO, No IV)) RIGHT flank pain, Hx: kidney stones Report Examination: CT abdomen/pelvis Indication: RIGHT flank pain, Hx: kidney stones Technique: Axial CT images of the abdomen/pelvis were obtained without oral or IV contrast at 3 mm intervals. Images were acquired from the lung bases through the symphysis pubis. Coronal and sagittal reconstructions were also provided for review. Findings: Diffusely diminished attenuation of the liver is present. There are two tiny nonobstructing renal stones of the right kidney. No significant hydronephrosis of either kidney. The solid organs in the upper abdomen are otherwise unremarkable. Large and small bowel are grossly unremarkable. Question diffuse mural thickening along the greater curvature the stomach. Mild aortoiliac calcification present. No abdominal/pelvic adenopathy. Levoscoliosis of the lumbar spine is present with fairly advanced degenerative disc disease, greatest at L2/L3 and L4/L5. Laminectomy changes of the lumbar spine are present. The lung bases are grossly clear. Left posterior rib fracture is present with mild hypertrophic change. Impression: Punctate nonobstructing renal stones of the right kidney. No hydronephrosis. Question diffuse mural thickening along the greater curvature the stomach. Follow-up EGD is suggested. Computed Tomography Report Report Dictated on Final Dictating Physician: MD KAM KRIKOR Signed Date and Time: 05/15/2022 5:58 pm Signed by: MD KAM KRIKOR Transcribed Date and Time: 05/15/2022 5:59 Normal [facility] Complete Urinalysison 2021 Bacteria LM.HPF (Urine sed) [#/Area] Negative Normal Negative [facility] Comment on above: Result Comment: . Performed By: #### B GLU #### [facility] [address] [place] [address] Cast, Hyaline 0 - 2 Abnormal Negative [facility] Comment on above: Result Comment: . Performed By: #### B GLU #### [facility] [address] [place] [address] Mucous Threads Few Normal Negative [facility] Comment on above: Result Comment: . Performed By: #### B GLU #### [facility] [address] [place] [address] RBC LM.HPF (Urine sed) [#/Area] Negative Normal 0-2 [facility] Comment on above: Result Comment: . Performed By: #### B GLU #### [facility] [address] [place] [address] Squamous Epithelial 3 - 5 Normal 3-5 [facility] Comment on above: Result Comment: . Performed By: #### B GLU #### [facility] [address] [place] [address] VOLUME, URINE 12 ml Normal [facility] Comment on above: Result Comment: . Performed By: #### B GLU #### [facility] [address] [place] [address] WBC, Urine 0 - 2 Normal 0-5 [facility] Comment on above: Result Comment: . Performed By: #### B GLU #### [facility] [address] [place] [address] Appearance (U) Clear Normal Clear [facility] Comment on above: Result Comment: . Performed By: #### B GLU #### [facility] [address] [place] [address] Bilirubin,Urine Negative Normal Negative [facility] Comment on above: Result Comment: . Performed By: #### B GLU #### [facility] [address] [place] [address] Color (U) LIGHT YELLOW Normal Lt. Yellow [facility] Comment on above: Result Comment: . Performed By: #### B GLU #### [facility] [address] [place] [address] Glucose Ql (U) Normal Normal Normal (<70) [facility] Comment on above: Result Comment: . Performed By: #### B GLU #### [facility] [address] [place] [address] Ketone,Urine Negative Normal Negative [facility] Comment on above: Result Comment: . Performed By: #### B GLU #### [facility] [address] [place] [address] Leukocytes,Urine Negative Normal Negative [facility] Comment on above: Result Comment: . Performed By: #### B GLU #### [facility] [address] [place] [address] Nitrites,Urine Negative Normal Negative [facility] Comment on above: Result Comment: . Performed By: #### B GLU #### [facility] [address] [place] [address] Occult Blood,Urine Negative Normal Negative [facility] Comment on above: Result Comment: . Performed By: #### B GLU #### [facility] [address] [place] [address] pH,Urine 5.5 Normal 5.0-8.0 [facility] Comment on above: Result Comment: . Performed By: #### B GLU #### [facility] [address] [place] [address] Protein (U) [Mass/Vol] 20 mg/dL Abnormal Negative [facility] Comment on above: Result Comment: . Performed By: #### B GLU #### [facility] [address] [place] [address] Specific [place],Urine 1.006 Normal 1.005 - 1.030 [facility] Comment on above: Result Comment: . Performed By: #### B GLU #### [facility] [address] [place] [address] Urobilinogen,Urine Normal Normal Normal (0-1) [facility] Comment on above: Result Comment: . Performed By: #### B GLU #### [facility] [address] [place] [address] Hemogram w/ Autodiffon 05-15 Abs Baso Cnt 0.0 10*3/uL Normal 0.0-0.2 [facility] Comment on above: Performed By: #### N A3 #### [facility] [address] [place] [address] Abs Neutrophile Cnt 3.4 10*3/uL Normal 1.8-7.0 [facility] Comment on above: Performed By: #### N A3 #### [facility] [address] [place] [address] Basophils/100 WBC (Bld) 0.8 % Normal 0.0-2.0 [facility] Comment on above: Performed By: #### N A3 #### [place] [address] [place] [address] Eosinophils (Bld) [#/Vol] 0.0 10*3/uL Normal 0.0-0.5 [facility] Comment on above: Performed By: #### N A3 #### [facility] [address] [place] [address] Eosinophils/100 WBC (Bld) 0.2 % Low 1.0-6.0 [facility] Comment on above: Performed By: #### N A3 #### [facility] [address] [place] [address] Erythrocyte distribution width (RBC) [Ratio] 13.0 % Normal 11.5-14.5 [facility] Comment on above: Performed By: #### N A3 #### [facility] [address] [place] [address] Granulocytes/100 WBC (Bld) 67.5 % Normal 40.0-80.0 [facility] Comment on above: Performed By: #### N A3 #### [facility] [address] [place] [address] Hematocrit (Bld) [Volume fraction] 34.3 % Low 40.0-52.0 [facility] Comment on above: Performed By: #### N A3 #### [facility] [address] [place] [address] Hemoglobin (Bld) [Mass/Vol] 11.8 g/dL Low 13.0-18.0 [facility] Comment on above: Performed By: #### N A3 #### [facility] [address] [place] [address] Lymphocytes (Bld) [#/Vol] 1.2 10*3/uL Normal 1.0-4.3 [facility] Comment on above: Performed By: #### N A3 #### [facility] [address] [place] [address] Lymphocytes/100 WBC (Bld) 23.3 % Normal 20.0-40.0 [facility] Comment on above: Performed By: #### N A3 #### [facility] [address] [place] [address] MCH (RBC) [Entitic mass] 34.1 pg High 26.0-34.0 [facility] Comment on above: Performed By: #### N A3 #### [facility] [address] [place] [address] MCHC 34.4 % Normal 32.0-36.0 [facility] Comment on above: Performed By: #### N A3 #### [facility] [address] [place] [address] MCV (RBC) [Entitic vol] 99.1 fL High 80.0-98.0 [facility] Comment on above: Performed By: #### N A3 #### [facility] [address] [place] [address] Monocytes (Bld) [#/Vol] 0.4 10*3/uL Normal 0.0-0.8 [facility] Comment on above: Performed By: #### N A3 #### [facility] [address] [place] [address] Monocytes/100 WBC (Bld) 7.8 % Normal 2.0-10.0 [facility] Comment on above: Performed By: #### N A3 #### [facility] [address] [place] [address] Platelet mean volume (Bld) [Entitic vol] 9.7 fL Normal 7.4-12.4 [facility] Comment on above: Result Comment: MPV is a calculated measurement using platelet volume ratio. Performed By: #### N A3 #### [facility] [address] [place] [address] Platelets (Bld) [#/Vol] 112 10*3/uL Low 140-440 [facility] Comment on above: Performed By: #### N A3 #### [facility] [address] [place] [address] RBC (Bld) [#/Vol] 3.46 10*6/uL Low 4.40-5.90 [facility] Comment on above: Performed By: #### N A3 #### [facility] [address] [place] [address] WBC (Bld) [#/Vol] 5.1 10*3/uL Normal 3.6-10.7 [facility] Comment on above: Performed By: #### N A3 #### [facility] [address] [place] [address] Urinalysison 07-28-2022 Appearance (U) Clear Clear NA [facility] Work Phone: [phone] Comment on above: . Bacteria, UA Negative Negative /[HPF] [facility] Work Phone: [phone] Comment on above: . Bilirubin Urine Negative Negative mg/dL [facility] Work Phone: [phone] Comment on above: . Color (U) LIGHT YELLOW Lt. Yellow NA [facility] Work Phone: [phone] Comment on above: . Glucose, Ur Normal Normal (<70) mg/dL [facility] Work Phone: [phone] Comment on above: . Hyaline Casts, UA 0-2 Abnormal Negative /[LPF] [facility] Work Phone: [phone] Comment on above: . Interpretation and review of laboratory results Abnormal [facility] Work Phone: [phone] Ql (U) Negative Negative mg/dL [facility] Work Phone: [phone] Comment on above: . LEUKOCYTES, UA Negative Negative Emma/uL [facility] Work Phone: [phone] Comment on above: . Mucous Threads Few Negative /[LPF] [facility] Work Phone: [phone] Comment on above: . Nitrite, Urine Negative Negative NA [facility] Work Phone: [phone] Comment on above: . Occult Blood,Urine Negative Negative mg/dL [facility] Work Phone: [phone] Comment on above: . pH (U) 5.5 [pH] [facility] Work Phone: [phone] Comment on above: . Protein (U) [Mass/Vol] 20 mg/dL Abnormal Negative [facility] Work Phone: [phone] Comment on above: . RBC (U) [#/Vol] Negative 0 - 2 /[HPF] [facility] Work Phone: [phone] Comment on above: . Specific [place], Urine 1.006 [facility] Work Phone: [phone] Comment on above: . Squam Epithel, UA 3-5 3 - 5 /[HPF] [facility] Work Phone: [phone] Comment on above: . Urobilinogen, Urine Normal Normal ( 0-1) mg/dL [facility] Work Phone: Comment on above: . Volume 12 ml [facility] Work Phone: Comment on above: . WBC, UA /[HPF] 0 - 5 /[HPF] [facility] Work Phone: Comment on above: . Test Performed by [facility], [address] , [address] LAB [facility] Work Phone: CT Abdomen Pelvis Wo Fannie ton 06-24-2020 Chris, [facility] Incoming Radiology Results From [facility] - 06/24/2020 11:47 PM EDT Patient Name: WOODY NI ---CT--- Exam Date/Time 06/24/2020 23:23:[address] Abdomen/Pelvis (No PO, No IV) Ordering Physician [id number] CANTU Accession Number [id number] CPT4 Codes 72813 (CT Abdomen/Pelvis (No PO, No IV)) Reason For Exam right sided flank pain Report CT ABDOMEN AND PELVIS WITHOUT CONTRAST CLINICAL INDICATION: right sided flank pain TECHNIQUE: CT scan of the abdomen and pelvis, without IV contrast. Multiplanar reformations. COMPARISON: July,. FINDINGS: Abdomen: Solid organ evaluation limited due to lack of IV contrast. Visualized lung bases grossly clear. Old fracture deformities in left posteroinferior ribs again evident. No radiopaque gallstones. Punctate calcifications x2 in the right renal upper pole measuring approximately 2 mm each. Mild prominence of bilateral renal collecting systems about the same. No significant hydronephrosis or abnormal perinephric fluid collection. Remainder of abdominal parenchyma grossly unremarkable. Pelvis: No apparent calcifications or significant dilatation in the distal ureters. Bowel grossly unremarkable. Appendix within normal limits. No significant, free peritoneal fluid or apparent adenopathy. Abdominal aorta is nonaneurysmal. Extensive degenerative and postictal change again noted in the lumbar spine. Mild retrolisthesis in the L2-L3 level, about the same. IMPRESSION: 1. Punctate, nonobstructing, right renal calcifications. No significant hydronephrosis. Report Dictated on Workstation: [email or web address] --- Final --- Dictating Physician: MD HANKS WENDELL Signed Date and Time: 06/24/2020 11:46 pm Signed by: MD HANKS WENDELL Transcribed Date and Time: 06/24/2020 11:47 [place], [place] Patient Name: WOODY NI ---CT--- Exam Date/Time 06/24/2020 23:23:[address] Abdomen/Pelvis (No PO, No IV) Ordering Physician [id number] CANTU Accession Number [id number] CPT4 Codes 31373 (CT Abdomen/Pelvis (No PO, No IV)) Reason For Exam right sided flank pain Report CT ABDOMEN AND PELVIS WITHOUT CONTRAST CLINICAL INDICATION: right sided flank pain TECHNIQUE: CT scan of the abdomen and pelvis, without IV contrast. Multiplanar reformations. COMPARISON: July,. FINDINGS: Abdomen: Solid organ evaluation limited due to lack of IV contrast. Visualized lung bases grossly clear. Old fracture deformities in left posteroinferior ribs again evident. No radiopaque gallstones. Punctate calcifications x2 in the right renal upper pole measuring approximately 2 mm each. Mild prominence of bilateral renal collecting systems about the same. No significant hydronephrosis or abnormal perinephric fluid collection. Remainder of abdominal parenchyma grossly unremarkable. Pelvis: No apparent calcifications or significant dilatation in the distal ureters. Bowel grossly unremarkable. Appendix within normal limits. No significant, free peritoneal fluid or apparent adenopathy. Abdominal aorta is nonaneurysmal. Extensive degenerative and postictal change again noted in the lumbar spine. Mild retrolisthesis in the L2-L3 level, about the same. IMPRESSION: 1. Punctate, nonobstructing, right renal calcifications. No significant hydronephrosis. Report Dictated on Workstation: [email or web address] --- Final --- Dictating Physician: MD HANKS WENDELL Signed Date and Time: 06/24/2020 11:46 pm Signed by: MD HANKS WENDELL Transcribed Date and Time: 06/24/2020 11:47 [place], [place] Comprehensive Metabolic Pane peter 06-24-2020 Albumin [Mass/Vol] 4.6 g/dL 3.5 - 5 g/dL [place], [place] ALP [Catalytic activity/Vol] 62 U/L 38 - 126 U/L [place], [place] ALT [Catalytic activity/Vol] 60 U/L High 0 - 49 U/L [place], [place] Comment on above: The ALT test is perf ormed by an updated assay method. Please note that the reference intervals have been changed and are now sex specific. Anion gap [Moles/Vol] 13 mmol/L [place], [place] AST [Catalytic activity/Vol] 74 U/L High 15 - 46 U/L [place], [place] Bilirubin Ql (U) 1.1 mg/dL 0.2 - 1.3 mg/dL [place], [place] Calcium [Mass/Vol] 9.4 mg/dL 8.4 - 10. 4 mg/dL [place], [place] Chloride [Moles/Vol] 100 mmol/L 98 - 10 7 mmol/L [place], [place] CO2 [Moles/Vol] 26 mmol/L 22 - 30 mmol/L [place], [place] Creatinine [Mass/Vol] 0.98 mg/dL 0.52 - 1.25 mg/dL [place] EGFR IF NonAfrican Polish 83.2 mL/min >60 [place] Comment on above: KDIGO guidelines pro vide the following GFR categories: Stage GFR(ml/min/1.73 m2) Terms G1 >=90 Normal or high G2 60-89 Mildly decreased* G3a 45-59 Mildly to moderately decreased G3b 30-44 Moderately to severely decreased G4 15-29 Severely decreased G5 <15 Kidney failure *Relative to young adult level. In the absence of evidence of kidney damage, neither GFR category G1 nor G2 fulfill the criteria for CKD. The CKD-EPI equation is validated in individuals 18 years of age and older. Currently the best equation for estimating glomerular filtration rate (GFR) from serum creatinine in children is the Bedside Benjamin equation. It is less accurate in patients with extremes of muscle mass, restriction of dietary protein, ingestion of creatine, extra-renal metabolism of creatinine, or treatment with medications that affect renal tubular creatinine secretion. GFR/1.73 sq M predicted among blacks MDRD (S/P/Bld) [Vol rate/Area] mL/min/{1.73_m2} >60 mL/min [place] Glucose [Mass/Vol] 108 mg/dL High 70 - 100 mg/dL [place] Interpretation and review of laboratory results Abnormal [place] Potassium [Moles/Vol] 3.4 mmol/L Low 3.5 - 5.1 mmol/L [place] Protein [Mass/Vol] 8.0 g/dL 6.3 - 8.2 g/dL [place] Sodium [Moles/Vol] 138 mmol/L 135 - 145 mmol/L [place] Urea nitrogen [Mass/Vol] 13 mg/dL 7 - 20 mg/dL [place] Hemogram (CBC) w/Auto Diffon 06-24-2020 Absolute Baso # 0.1 10*3/uL 0 - 0.2 10*3/uL [place] Absolute Neut # 3.6 10*3/uL 1.8 - 7 10*3/uL [place] Basophils/100 WBC (Bld) 0.7 % 0 - 2 % [place] Eosinophils (Bld) [#/Vol] 0.3 10*3/uL 0 - 0.5 10*3/uL [place] Eosinophils/100 WBC (Bld) 4.2 % 1 - 6 % [place] Erythrocyte distribution width (RBC) [Ratio] 13.5 % 11.5 - 14.5 % [place] Granulocytes/100 WBC (Bld) 50.8 % 40 - 80 % [place] Hematocrit (Bld) [Volume fraction] 44.5 % 40 - 52 % [place] Hemoglobin (Bld) [Mass/Vol] 15.0 g/dL 13 - 18 g/dL [place] Lymphocytes (Bld) [#/Vol] 2.7 10*3/uL 1 - 4.3 10*3/uL [place] Lymphocytes/100 WBC (Bld) 37.0 % 20 - 40 % [place] MCH (RBC) [Entitic mass] 32.1 pg 26 - 34 pg [place] MCHC (RBC) [Mass/Vol] 33.7 % 32 - 36 % [facility] [place], [place] MCV (RBC) [Entitic vol] 95.2 fL 80 - 98 fL [place] Monocytes (Bld) [#/Vol] 0.5 10*3/uL 0 - 0.8 10*3/uL [place] Monocytes/100 WBC (Bld) 7.3 % 2 - 10 % [place] Platelet mean volume (Bld) [Entitic vol] 8.3 fL 7.4 - 10.4 fL [place] Platelets (Bld) [#/Vol] 157 10*3/uL 140 - 440 10*3/uL [place] RBC (Bld) [#/Vol] 4.67 10*6/uL 4.4 - 5.9 10*6/uL [place] WBC (Bld) [#/Vol] 7.2 10*3/uL 3.6 - 10.7 10*3/uL [place] Lipaseon 06-24-2020 Lipase [Catalytic activity/Vol] 26 U/L 23 - 300 U/L [place] Otheron 06-24-2020 Test Performed by [facility], [address] Test Performed by [facility], [address] Urinalysison 06-24-2020 Appearance (U) Clear Clear [place], [place] Comment on above: . Bilirubin Urine Negative Negative mg/dL [place] Comment on above: . Color (U) Light-Yellow Lt. Yellow [place] Comment on above: . Glucose, Ur Normal Normal (<70) mg/dL [place] Comment on above: . Ketones Ql (U) Negative Negative mg/dL [place] Comment on above: . LEUKOCYTES, UA Negative Negative Emma/uL [place] Comment on above: . Nitrite, Urine Negative Negative [place] Comment on above: . Occult Blood,Urine Negative Negative mg/dL [place] Comment on above: . pH (U) 6.0 [pH] [place] Comment on above: . Protein (U) [Mass/Vol] Negative Negat zenia mg/dL [place] Comment on above: . Specific [place], Urine 1.007 [place] Comment on above: . Urobilinogen, Urine Normal Normal ( 0-1) mg/dL [place] Comment on above: . XR CHEST PORTABLEon 06-24-20 [facility] Incoming Radiology Results From [facility] - 06/24/2020 10:50 PM EDT Patient Name: WOODY NI ---Diagnostic Radiology--- Exam Date/Time 06/24/2020 22:50:03 EDT Exam CR Chest Portable Ordering Physician MACK DAVIS Accession Number [id number] CPT4 Codes 01598 () Reason For Exam productive cough 3 days Report CHEST PORTABLE CLINICAL INDICATION: productive cough 3 days TECHNIQUE: Single, portable chest x-ray. COMPARISON: July,. FINDINGS: Cardiac and mediastinal silhouette within normal limits. Lungs are grossly clear. No significant vascular congestion. No apparent pleural effusion or pneumothorax. Bony thorax grossly unremarkable. IMPRESSION: 1. No acute consolidation. Report Dictated on Workstation: [id number] --- Final --- Dictating Physician: MD HANKS WENDELL Signed Date and Time: 06/24/2020 10:47 pm Signed by: MD HANKS WENDELL Transcribed Date and Time: 06/24/2020 10:50 [place] Patient Name: WOODY NI ---Diagnostic Radiology--- Exam Date/Time 06/24/2020 22:50:03 EDT Exam CR Chest Portable Ordering Physician [id number] BERRY Accession Number [id number] CPT4 Codes 01874 () Reason For Exam productive cough 3 days Report CHEST PORTABLE CLINICAL INDICATION: productive cough 3 days TECHNIQUE: Single, portable chest x-ray. COMPARISON: July,. FINDINGS: Cardiac and mediastinal silhouette within normal limits. Lungs are grossly clear. No significant vascular congestion. No apparent pleural effusion or pneumothorax. Bony thorax grossly unremarkable. IMPRESSION: 1. No acute consolidation. Report Dictated on Workstation: [id number] --- Final --- Dictating Physician: MD HANKS WENDELL Signed Date and Time: 06/24/2020 10:47 pm Signed by: MD HANKS WENDELL Transcribed Date and Time: 06/24/2020 10:50 [facility]- [place], CT CT ABDOMEN W CONTRAST Additi onal Contrast? Oralon 07-19-2019 Patient Name: WOODY NI ---CT--- Exam Date/Time 07/19/2019 10:40:[address] Abdomen w/ Contrast (IV Only) Ordering Physician [id number] -DANIEL LONDON Accession Number [id number] CPT4 Codes Q9967 (CT ISOVUE 370MG/ML&[id number]&ML&1 ), 21204 (CT Abdomen w/ Contrast (IV Only)) Reason For Exam GENERLIZED ABD PAIN Report EXAMINATION: CT of the Abdomen with Contrast. COMPARISON: 09/11/2015. REASON FOR STUDY: Generalized abdominal pain. TECHNIQUE: Contiguous axial 3 mm images along with multiplanar reformations were extended from the lung bases through the upper pelvis after intravenous infusion of 75 mL of Isovue-370. FINDINGS: Solid Organs: The hepatic parenchyma, spleen, pancreas and adrenal glands appear normal. Biliary Tree: The biliary tree is not appreciably dilated. The gallbladder appears normal. System: The kidneys and ureters appear normal. GI System: The stomach and bowel loops appear normal. Peritoneum, Retroperitoneum And Mesentery: No inflammatory change, free fluid or abnormal mass is shown. Vasculature: No abnormality seen. Musculoskeletal: Displaced left 9th, 10th and 11th rib fractures are evident. There is callus formation at the fracture sites. No extraskeletal soft tissue abnormality noted. Lung Bases: No abnormality noted. CONCLUSIONS: 1. No intra-abdominal or soft tissue injury identified. 2. Age-indeterminate displaced left 9th, 10th and 11th rib fractures. Report Dictated on --- Final --- Dictating Physician: MD MOE B NELSON Signed Date and Time: 07/19/2019 1:33 pm Signed by: MD MOE B NELSON Transcribed Date and Time: 07/19/2019 1:34 [place] [facility], [facility] Incoming Radiology Results From [facility] - 07/19/2019 1:34 PM EDT Patient Name: WOODY NI ---CT--- Exam Date/Time 07/19/2019 10:40:[address] Abdomen w/ Contrast (IV Only) Ordering Physician [id number] -DANIEL LONDON Accession Number [id number] CPT4 Codes Q9967 (CT ISOVUE 370MG/ML&[id number]&ML&1 ), 36322 (CT Abdomen w/ Contrast (IV Only)) Reason For Exam GENERLIZED ABD PAIN Report EXAMINATION: CT of the Abdomen with Contrast. COMPARISON: 09/11/2015. REASON FOR STUDY: Generalized abdominal pain. TECHNIQUE: Contiguous axial 3 mm images along with multiplanar reformations were extended from the lung bases through the upper pelvis after intravenous infusion of 75 mL of Isovue-370. FINDINGS: Solid Organs: The hepatic parenchyma, spleen, pancreas and adrenal glands appear normal. Biliary Tree: The biliary tree is not appreciably dilated. The gallbladder appears normal. System: The kidneys and ureters appear normal. GI System: The stomach and bowel loops appear normal. Peritoneum, Retroperitoneum And Mesentery: No inflammatory change, free fluid or abnormal mass is shown. Vasculature: No abnormality seen. Musculoskeletal: Displaced left 9th, 10th and 11th rib fractures are evident. There is callus formation at the fracture sites. No extraskeletal soft tissue abnormality noted. Lung Bases: No abnormality noted. CONCLUSIONS: 1. No intra-abdominal or soft tissue injury identified. 2. Age-indeterminate displaced left 9th, 10th and 11th rib fractures. Report Dictated on --- Final --- Dictating Physician: MD MOE B NELSON Signed Date and Time: 07/19/2019 1:33 pm Signed by: MD MOE B NELSON Transcribed Date and Time: 07/19/2019 1:34 [facility], [place] XR RIBS LEFT (2 VIEWS)on Patient Name: WOODY NI ---Diagnostic Radiology--- Exam Date/Time 07/19/2019 09:50:11 EDT Exam CR Ribs 2 Views Left Ordering Physician [id number] LIN Accession Number [id number] CPT4 Codes 36561 () Reason For Exam intercostal pain Report LEFT RIBS AND CHEST CLINICAL INDICATION: Pain. TECHNIQUE: Three views were obtained. PA chest. COMPARISON: None. FINDINGS: The cardiac and mediastinal silhouettes are unremarkable. The lungs demonstrate no consolidation or area of atelectasis. The costophrenic angles are sharp. No pneumothorax is noted. Known fractures of the left ninth 10th, and 11th ribs, best seen on the CT abdomen of 07/19/2019. Degenerative changes of the thoracic spine. Levoscoliosis of the lumbar spine with postsurgical change. IMPRESSION: 1.No acute cardiopulmonary disease. 2.Known fractures of the left ninth 10th, and 11th ribs, best seen on the CT abdomen of 07/19/2019. Report Dictated on --- Final --- Dictating Physician: MD BENZ JASON Signed Date and Time: 07/19/2019 9:49 pm Signed by: MD BENZ JASON Transcribed Date and Time: 07/19/2019 9:50 [place] [facility] Incoming Radiology Results From [facility] - 07/19/2019 9:51 PM EDT Patient Name: WOODY NI ---Diagnostic Radiology--- Exam Date/Time 07/19/2019 09:50:11 EDT Exam CR Ribs 2 Views Left Ordering Physician DANIEL ARTEAGA Accession Number [id number] CPT4 Codes 21731 () Reason For Exam intercostal pain Report LEFT RIBS AND CHEST CLINICAL INDICATION: Pain. TECHNIQUE: Three views were obtained. PA chest. COMPARISON: None. FINDINGS: The cardiac and mediastinal silhouettes are unremarkable. The lungs demonstrate no consolidation or area of atelectasis. The costophrenic angles are sharp. No pneumothorax is noted. Known fractures of the left ninth 10th, and 11th ribs, best seen on the CT abdomen of 07/19/2019. Degenerative changes of the thoracic spine. Levoscoliosis of the lumbar spine with postsurgical change. IMPRESSION: 1.No acute cardiopulmonary disease. 2.Known fractures of the left ninth 10th, and 11th ribs, best seen on the CT abdomen of 07/19/2019. Report Dictated on --- Final --- Dictating Physician: MD BENZ JASON Signed Date and Time: 07/19/2019 9:49 pm Signed by: MD BENZ JASON Transcribed Date and Time: 07/19/2019 9:50 [place] BUN 07-16-2019 Urea nitrogen [Mass/Vol] 20 mg/dL 7 - 20 mg/dL [place] Creatinine, Serumon 07-16-20 19 Creatinine [Mass/Vol] 1.13 mg/dL 0.52 - 1.25 mg/dL [place] EGFR IF NonAfrican Polish >60.0 >60 mL/min [place] Comment on above: Source- MDRD equatio n with creatinine calibration to IDMS(NKDEP) eGFR not recommended for drug dose adjustment GFR/1.73 sq M predicted among blacks MDRD (S/P/Bld) [Vol rate/Area] mL/min/{1.73_m2} >60 mL/min [place] Otheron 07-16-2019 Test Performed by [facility], [address] [place] [address]. [address] CASE MANAGEMon 06-20-2017 CASE MANAGEM HNO ID: [id number] thor: Emilee (Rn) ELEANOR Voervice: Case ManagementAuthor Type: Registered NurseType: Care Mgt Progress NoteFiled: 06/20/2017 11:32 AMNote Text:CARE MANAGEMENT DISCHARGE NOTESERVICE DATE: 06/20/2017SERVICE TIME: 11:25 AM LOS: 2 daysAdmission Date: 06/18/2017DISCHARGE ARRANGEMENT (list agency and phone number)Home and Home careProvider: [facility] FFYLAYT COMMUNICATION:Primary Care Physician: Jani Quezada Phone Number: [phone] to [facility] - Received return call from Adama @ [facility] @11:30am and informed of patient discharge home today and all dc documentssent to office thru AllscriptsTRANSPORTATION ARRANGEMENTS:Car - Family to transport homeADDITIONAL CONTACT RESOURCES:FOLLOW UP: With Dr Holder in 1-2 weeks (or as already scheduled)[phone] NATURE: Emilee Vo RN PATIENT NAME: Woody NiDATE: June 20, 2017 : 11:25 AM PAGER/CONTACT #: [phone] [facility] 06-20-2017 CNDS HNO ID: [id number] thor: ELEANOR Vasquezervice: NeurosurgeryAuthor Type: Registered NurseType: Discharge SummariesFiled: 06/23/2017 7:04 PMNote Text:DISCHARGE SUMMARYPATIENT NAME: Woody Ni ADMISSION DATE: 06/18/2017MRN: [id number] DISCHARGE DATE: 06/20/2017Attending Physician: No att. providers foundReason for Hospitalization: lumbar stenosisLumbar stenosisAsthmaDiabetes mellitusHypertensionObstr uctive sleep apneaHyperlipidemiaAlcoho lic cirrhosisHepatitis C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AnxietyHis tory of Present Illness: This is a 57-year-old male, who presents withclinical signs and symptoms of L2-S1 spondylosis, stenosis, intractablelow back pain, and lumbar radiculopathy. He has a past medical historyof asthma, DM, HLD,SHAYLA,alcoholic cirrhosis, hepatitis C, hypothyroidism,and anxiety. His imaging studies are diagnostic of multilevel lumbarspondylosis, stenosis of varying degrees of severity with associatedneural compression. The significant areas affected extend from [id number] S1.?Operations During Hospitalization: L2, L3, L4, L5, and S1 laminectomiesand decompression.Procedures During Hospitalization: No procedures performedHospital Course:Mr. Ni was taken to the operating room for the above surgery.Postoperatively he was admitted for routine postoperative care. Internalmedicine was consulted for medical management. He was started on a paincontrol regimen, DVT prophylaxis and physical therapy. He progressed andhad an uncomplicated post operative course. He was discharged.Labs and Procedures Pending at Discharge: No pending results.Consulting Teams During Hospitalization:Internal medicinePatient Condition @ Discharge: StableDischarge Disposition: Home with Home Health CareInformation Provided to Patient: Smoking Cessation Material Givendischarge instructions givenDischarge Medications: Discharge Medication List as of 06/20/2017 10:06 AMSTART taking these medicationsoxyCODONE-acet aminophen (PERCOCET) 10-325 mg tabletTake 1 tablet by mouth every 6 hours as needed for Pain.Print RX, Disp-50 tablet, R-0CONTINUE these medications which have NOT CHANGEDalendronate (FOSAMAX) 70 mg tabletTake 70 mg by mouth once each week.Historical MedamLODIPine (NORVASC) 10 mg tabletTake 10 mg by mouth once daily.Historical MedCOLCRYS 0.6 mg tabletTake 0.6 mg by mouth three times daily.Historical Med, DAWlansoprazole (PREVACID) 30 mg capsuleTake 30 mg by mouth once daily.Historical Medlevothyroxine (SYNTHROID) 100 mcg tabletTake 100 mcg by mouth once daily.Historical Medmeloxicam (MOBIC) 7.5 mg tabletTake 7.5 mg by mouth once daily.Historical MedmetFORMIN (GLUCOPHAGE) 500 mg tabletTake 1,000 mg by mouth daily with breakfast.Historical MedoxyCODONE IR (ROXICODONE) 10 mg tabTake 10 mg by mouth four times daily.Historical Medpotassium chloride SR (MICRO-K) 10 mEq CR capsuleTake 10 mEq by mouth once daily.Historical Medpravastatin (PRAVACHOL) 40 mg tabletTake 40 mg by mouth once daily.Historical Medalbuterol (PROVENTIL) 2.5 mg /3 mL (0.083 %) nebulizer solutionUse 2.5 mg via nebulizer as needed.Historical MedTRUE METRIX GLUCOSE TEST STRIP test stripHistorical Med, DAWclotrimazole-betametha sone (LOTRISONE) creamHistorical Medcyclobenzaprine (FLEXERIL) 10 mg tabletTake 10 mg by mouth three times daily as needed.Historical Medescitalopram oxalate (LEXAPRO) 10 mg tabletTake 10 mg by mouth once daily.Historical Medfluticasone (FLONASE) 50 mcg/actuation nasal sprayUse 1 Ringold in the nose once daily as needed.Historical Medfurosemide (LASIX) 20 mg tabletTake 20 mg by mouth once daily as needed.Historical Medipratropium (ATROVENT) 0.02 % nebulizer solutionHistorical MedTRUEPLUS LANCETS 30 gauge miscHistorical Med, DAWondansetron (ZOFRAN) 4 mg tabletTake 4 mg by mouth as needed.Historical Medpolyethylene glycol 3350 (MIRALAX, GLYCOLAX) 17 gram/dose powderTake 17 g by mouth once daily as needed.Historical Medtestosterone micronized, bulk, 100 % powdHistorical MedFuture Appointments:No future appointments.SIGNATURE: Gauri Carolina RN PAGER:DATE: June 23, 2017TIME: 6:53 PM [facility] CONSULT PROGon 06-20-2017 CONSULT PROG HNO ID: [id number] thor: Vianey Lau: General Internal MedicineAuthor Type: PhysicianType: Consult Progress NoteFiled: 06/20/2017 11:03 AMNote Text:INTERNAL MEDICINECONSULT PROGRESS NOTESUBJECTIVEINTERVAL HPI:Pain controlledNo nausea, vomitingMEDICATIONS: ReviewedCurrent hospital medications:lactated ringers infusion 30 mL/hr INTRAVENOUS CONTINUOUSoxyCODONE IR 10 mg tab(s) (ROXICODONE) 10 mg ORAL QIDmetFORMIN 1,000 mg tab(s) (GLUCOPHAGE) 1,000 mg ORAL DAILY WITH BREAKFASTsimvastatin 20 mg tab(s) (ZOCOR) 20 mg ORAL DAILYalbuterol 2.5 mg /3 mL (0.083 %) 2.5 mg (PROVENTIL) 2.5 mg INHALATION q 6H PRNamLODIPine 10 mg tab(s) (NORVASC) 10 mg ORAL DAILYcolchicine 0.6 mg tab(s) 0.6 mg ORAL TIDpolyethylene glycol 3350 17 g packet (MIRALAX, GLYCOLAX) 17 g ORAL DAILYPRNpotassium chloride 10 mEq tablet (K-TAB) [address] 40 mg tab(s) (PROTONIX) 40 mg ORAL DAILYescitalopram oxalate 10 mg tab(s) (LEXAPRO) 10 mg ORAL DAILYcyclobenzaprine 10 mg tab(s) (FLEXERIL) 10 mg ORAL TID PRNlevothyroxine 100 mcg tab(s) (SYNTHROID) 100 mcg ORAL DAILYNaCl 0.9% iv infusion 50 mL/hr INTRAVENOUS CONTINUOUSacetaminophen 325-650 mg tab(s) (TYLENOL) 325-650 mg ORAL q 4 H PRNoxyCODONE-acetaminophe n 5-325 mg 1-2 tablet (PERCOCET) 1-2 tablet ORAL q 4H PRNmorphine 2-5 mg injection 2-5 mg INTRAVENOUS q 2 H PRNondansetron orally disintegrating 4 mg tab(s) (ZOFRAN ODT) 4 mg ORAL q 6 HPRNondansetron (PF) 4 mg injection (ZOFRAN) 4 mg INTRAVENOUS q 6 H PRNdocusate sodium 100 mg cap(s) (COLACE) 100 mg ORAL BIDbisacodyl EC 10 mg tab(s) (DULCOLAX) 10 mg ORAL DAILYmagnesium hydroxide 400 mg/5 mL 30 mL (MOM) 30 mL ORAL DAILY PRNOBJECTIVEPHYSICAL EXAM: BP 127/71 Pulse 100 Temp (Src) 97.5 (Oral) Resp 18 Ht 5' 10" (1.78m) Wt 218 lb 4.1 oz (99.0kg) SpO2 94% BMI 31.32kg/(m2).GENERAL: Alert, no distress, cooperativeLUNGS: Lungs clear to auscultation, Good diaphragmatic excursionCARDIAC: Normal S1 and S2; no rubs, murmurs, or gallopsABDOMEN: Abdomen soft, non-tender, BS normal, No masses or organomegalyEXTREMITIES: Extremities normal, no deformities, edema, clubbing or skindiscoloration. Good capillary refill., No ulcersWOUND: Clean, dry and intactDATA:Diagnostic tests reviewed for today's visit:Most recent labsMost recent imagingIMPRESSION/RECOMME NDATIONSActive Problems:Lumbar stenosis s/p decompressionAsthmaDiabet es mellitus type 2HTNHyperlipidemiaOSAAlco holic CirrhosisHepatitis C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Anxiety?PL AN:Pain controlPT/OTDVT prophylaxisResume home medsMonitor blood sugarsOkay for DC todaySIGNATURE: Vianey Tiwari MD PATIENT NAME: Woody Ni [facility] NURSING PROGon 06-20-2017 NURSING PROG HNO ID: [id number] thor: Leonora (Rn) ELEANOR Srivastavaervice: (none)Author Type: Registered NurseType: Nursing Progress NoteFiled: 06/20/2017 10:39 AMNote Text:Discharge instructions provided regarding laminectomy, percoset, follow upappointment. Questions answered, patient verbalized understanding.Discharged via wheelchair with spouse and PCNA. [facility] PROGRESSon 06-20-2017 PROGRESS HNO ID: [id number] thor: Abel Londono: NeurosurgeryAuthor Type: PhysicianType: Progress NotesFiled: 06/20/2017 9:28 AMNote Text:NEUROSURGERY PROGRESS NOTESASSESSMENT AND PLAN:Feels good, will dc to home. Narcotic needs beyond state guidelines dueto chronic pain, complexity and size of surgical procedureSUBJECTIVE: preop symptoms resolved, feet still cooper numbness, not muchback pain now, amb better than preopMEDICATIONS:Current hospital medications:lactated ringers infusion 30 mL/hr INTRAVENOUS CONTINUOUSoxyCODONE IR 10 mg tab(s) (ROXICODONE) 10 mg ORAL QIDmetFORMIN 1,000 mg tab(s) (GLUCOPHAGE) 1,000 mg ORAL DAILY WITH BREAKFASTsimvastatin 20 mg tab(s) (ZOCOR) 20 mg ORAL DAILYalbuterol 2.5 mg /3 mL (0.083 %) 2.5 mg (PROVENTIL) 2.5 mg INHALATION q 6H PRNamLODIPine 10 mg tab(s) (NORVASC) 10 mg ORAL DAILYcolchicine 0.6 mg tab(s) 0.6 mg ORAL TIDpolyethylene glycol 3350 17 g packet (MIRALAX, GLYCOLAX) 17 g ORAL DAILYPRNpotassium chloride 10 mEq tablet (K-TAB) [address] 40 mg tab(s) (PROTONIX) 40 mg ORAL DAILYescitalopram oxalate 10 mg tab(s) (LEXAPRO) 10 mg ORAL DAILYcyclobenzaprine 10 mg tab(s) (FLEXERIL) 10 mg ORAL TID PRNlevothyroxine 100 mcg tab(s) (SYNTHROID) 100 mcg ORAL DAILYNaCl 0.9% iv infusion 50 mL/hr INTRAVENOUS CONTINUOUSacetaminophen 325-650 mg tab(s) (TYLENOL) 325-650 mg ORAL q 4 H PRNoxyCODONE-acetaminophe n 5-325 mg 1-2 tablet (PERCOCET) 1-2 tablet ORAL q 4H PRNmorphine 2-5 mg injection 2-5 mg INTRAVENOUS q 2 H PRNondansetron orally disintegrating 4 mg tab(s) (ZOFRAN ODT) 4 mg ORAL q 6 HPRNondansetron (PF) 4 mg injection (ZOFRAN) 4 mg INTRAVENOUS q 6 H PRNdocusate sodium 100 mg cap(s) (COLACE) 100 mg ORAL BIDbisacodyl EC 10 mg tab(s) (DULCOLAX) 10 mg ORAL DAILYmagnesium hydroxide 400 mg/5 mL 30 mL (MOM) 30 mL ORAL DAILY PRNOBJECTIVE: BP 127/71 Pulse 100 Temp 36.4 ?C (97.5 ?F) (Oral) Resp 18 Ht 177.8 cm (5' 10") Wt 99 kg (218 lb 4.1 oz) SpO2 94% BMI 31.32kg/m2 str 5 no focal deficits, incision looks goodSIGNATURE: Abel Holder, MDPAGER: [phone] (ELIANE)DATE of SERVICE: 06/20/2017TIME of SERVICE: 9:25 AM Normal [facility] Basic Metabolic Panlon 06-19 Anion gap 9 mmol/L Normal 0-15 [facility] Comment on above: Performed By: #### C ONABO ####[facility] [id number] [place] [address] Calcium 8.4 mg/dL Low 8.5-10.5 [facility] Comment on above: Performed By: #### C ONABO ####[facility] [address] [place] [address] Chloride 102 mmol/L Normal 98-110 [facility] Comment on above: Performed By: #### C ONABO ####[facility] [id number] [place] [address] CO2 32 mmol/L Normal 23-32 [facility] Comment on above: Result Comment: Rech ecked Performed By: #### C ONABO ####[facility] [id number] [place] [address] Creatinine 0.86 mg/dL Normal 0.70-1.40 [facility] Comment on above: Performed By: #### C ONABO ####[facility] [id number] [place] [address] eGFR (non-black) mL/min/{1.73_m2} Normal [facility] Comment on above: Performed By: #### C ONABO ####[facility] [id number] [place] [address] Result Comment: eGFR (Estimated GFR) Units of measure: mL/min/1.73 meters squaredeGFR is derived from the reexpressed MDRD Study equation using the following parameters: serum creatinine, age, gender and race. The creatinine assay has been calibrated to be traceable to IDMS.An eGFR <60 mL/min/1.73m2 for >3 months is consistent with chronic kidney disease. Refer to KDOQI guidelines for clinical interpretation.In patients with unstable renal function, e.g. those with acute kidney injury, the eGFR may not accurately reflect actual GFR. Glucose mass conc 114 mg/dL High 65-100 [facility] Comment on above: Performed By: #### C ONABO ####[facility] [id number] [place] [address] Potassium molar conc 3.4 mmol/L Low 3.5-5.0 [facility] Comment on above: Performed By: #### C ONABO ####[facility] [address] [place] [address] Sodium 143 mmol/L Normal 135-146 [facility] Comment on above: Performed By: #### C ONABO ####[facility] [address] [place] [address] Urea nitrogen 6 mg/dL Low 10-25 [facility] Comment on above: Performed By: #### C ONABO ####[facility] [address] [place] [address] CASE MANAGEMon 06-19-2017 CASE MANAGEM HNO ID: [id number] thor: Vanesa (Rn) ELEANOR Wilsonervice: Case ManagementAuthor Type: Registered NurseType: Care Mgt Progress NoteFiled: 06/19/2017 2:50 PMNote Text:CARE MANAGEMENT PROGRESS NOTESERVICE DATE: 06/19/2017SERVICE TIME: 2:47 PM LOS: 1 dayFREEDOM OF CHOICE GIVEN:Yes 06/19/2017Financial Disclosure ProvidedThe patient and/or family has been given the Provider List: YesProvider List: Home CarePreference: [facility] CareNeeds Prior to Discharge: Home Care Order;Other: See Comment;DischargePrescrip tions (Medical Clearance)EMR reviewed. PT and OT are recommending HHC at discharge. RN CM met withpatient at bedside to discuss discharge plan. List of HHC providers givenand FOC explained. [facility]. Anticipate d/c tomorrow. S/O to transport. CM department willcontinue to follow.SIGNATURE: Vanesa Wilson RN PATIENT NAME: Woody PosadaTE: June 19, 2017 : 2:47 PM PAGER/CONTACT #: [phone] Normal [facility] CBCon 06-19-2017 Erythrocyte distribution width Auto Ratio (RBC) 14.0 % Normal 11.5-15.0 [facility] Comment on above: Performed By: #### C ONABO ####[facility] [address] [place] [address] Erythrocytes (RBC) 4.15 10*6/uL Low 4.20-6.00 [facility] Comment on above: Performed By: #### C ONABO ####[facility] [address] [place] [address] Hematocrit (HCT) 37.8 % Low 39.0-51.0 [facility] Comment on above: Performed By: #### C ONABO ####[facility] [address] [place] [address] Hemoglobin mass conc (Bld) 12.9 g/dL Low 13.0-17.0 [facility] Comment on above: Performed By: #### C ONABO ####[facility] [address] [place] [address] MCH 31.1 pG Normal 26.0-34.0 [facility] Comment on above: Performed By: #### C ONABO ####[facility] [address] [place] [address] MCHC mass conc (RBC) 34.1 g/dL Normal 30.5-36.0 [facility] Comment on above: Performed By: #### C ONABO ####[facility] [address] MCV 91.1 fL Normal 80.0-100.0 [facility] Comment on above: Performed By: #### C ONABO ####[facility] Is[address]cmqkp9899 [address] Platelet mean volume (PMV) 11.1 fL Normal 9.0-12.7 [facility] Comment on above: Performed By: #### C ONABO ####[facility] [address] Platelets 122 10*3/uL Low 150-400 [facility] Comment on above: Performed By: #### C ONABO ####[facility] [address]a5640 [address] WBC (Leukocytes) 8.26 10*3/uL Normal 3.70-11.00 [facility] Comment on above: Performed By: #### C ONABO ####[facility] [address] [place], [place] [address] CONSULT PROGon 06-19-2017 CONSULT PROG HNO ID: [id number] thor: Vianey Lau: General Internal MedicineAuthor Type: PhysicianType: Consult Progress NoteFiled: 06/20/2017 12:46 AMNote Text:INTERNAL MEDICINECONSULT PROGRESS NOTESUBJECTIVEINTERVAL HPI:Pain controlledNo nausea, vomitingMEDICATIONS: ReviewedCurrent hospital medications:dexamethasone sodium phosphate 4 mg injection (DECADRON) 4 mg INTRAVENOUSq 6 Hlactated ringers infusion 30 mL/hr INTRAVENOUS CONTINUOUSoxyCODONE IR 10 mg tab(s) (ROXICODONE) 10 mg ORAL QIDmetFORMIN 1,000 mg tab(s) (GLUCOPHAGE) 1,000 mg ORAL DAILY WITH BREAKFASTsimvastatin 20 mg tab(s) (ZOCOR) 20 mg ORAL DAILYalbuterol 2.5 mg /3 mL (0.083 %) 2.5 mg (PROVENTIL) 2.5 mg INHALATION q 6H PRNamLODIPine 10 mg tab(s) (NORVASC) 10 mg ORAL DAILYcolchicine 0.6 mg tab(s) 0.6 mg ORAL TIDpolyethylene glycol 3350 17 g packet (MIRALAX, GLYCOLAX) 17 g ORAL DAILYPRNpotassium chloride 10 mEq tablet (K-TAB) [address] 40 mg tab(s) (PROTONIX) 40 mg ORAL DAILYescitalopram oxalate 10 mg tab(s) (LEXAPRO) 10 mg ORAL DAILYcyclobenzaprine 10 mg tab(s) (FLEXERIL) 10 mg ORAL TID PRNlevothyroxine 100 mcg tab(s) (SYNTHROID) 100 mcg ORAL DAILYNaCl 0.9% iv infusion 50 mL/hr INTRAVENOUS CONTINUOUSacetaminophen 325-650 mg tab(s) (TYLENOL) 325-650 mg ORAL q 4 H PRNoxyCODONE-acetaminophe n 5-325 mg 1-2 tablet (PERCOCET) 1-2 tablet ORAL q 4H PRNmorphine 2-5 mg injection 2-5 mg INTRAVENOUS q 2 H PRNondansetron orally disintegrating 4 mg tab(s) (ZOFRAN ODT) 4 mg ORAL q 6 HPRNondansetron (PF) 4 mg injection (ZOFRAN) 4 mg INTRAVENOUS q 6 H PRNdocusate sodium 100 mg cap(s) (COLACE) 100 mg ORAL BIDbisacodyl EC 10 mg tab(s) (DULCOLAX) 10 mg ORAL DAILYmagnesium hydroxide 400 mg/5 mL 30 mL (MOM) 30 mL ORAL DAILY PRNOBJECTIVEPHYSICAL EXAM: BP 116/64 Pulse 93 Temp (Src) 98 (Oral) Resp 16 Ht5' 10" (1.78m) Wt 218 lb 4.1 oz (99.0kg) SpO2 98% BMI 31.32kg/(m2).GENERAL: Alert, no distress, cooperativeLUNGS: Lungs clear to auscultation, Good diaphragmatic excursionCARDIAC: Normal S1 and S2; no rubs, murmurs, or gallopsABDOMEN: Abdomen soft, non-tender, BS normal, No masses or organomegalyEXTREMITIES: Extremities normal, no deformities, edema, clubbing or skindiscoloration. Good capillary refill., No ulcersWOUND: Clean, dry and intactDATA:Diagnostic tests reviewed for today's visit:Most recent labsMost recent imagingIMPRESSION/RECOMME NDATIONSActive Problems:Lumbar stenosis s/p decompressionAsthmaDiabet es mellitus type 2HTNHyperlipidemiaOSAAlco holic CirrhosisHepatitis C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Anxiety?PL AN:Pain controlPT/OTDVT prophylaxisResume home medsMonitor blood sugarsSIGNATURE: Vianey Tiwari MD PATIENT NAME: Woody Ni [facility] NURSING PROGon 06-19-2017 NURSING PROG HNO ID: [id number] thor: Zachariah LarsenRn) Doug Mcpherson: NursingAuthor Type: Registered NurseType: Nursing Progress NoteFiled: 06/19/2017 11:39 AMNote Text: Nursing Progress NotePatient Name: Woody NiMRN: [id number] [facility]: [id number] 0745- Assessment complete. Patient extremely agitated, belligerent ,uncooperative. Says he has not slept all night, pain was not controlled.No one brought him pain medication and no one would help him. He says hewould not eat breakfast this morning because he didn't want to have to getup and put his tray in the hallway like he did last night after dinner.Called previous nurse a liar when she said he slept most of the hhalr8531- Patient says he is not "having bad thoughts" any longer since hereceived his Lexapro.This note was completed by: Zachariah Mcpherson RN [facility] NURSING PROG HNO ID: [id number] thor: Ida Torres) Doug Gibson: (none)Author Type: Registered NurseType: Nursing Progress NoteFiled: 06/19/2017 8:07 AMNote Text:When I assumed care of Pt he stated he had not slept and would like tosleep. I gave morphine per MAR and Pt was sleeping/ snoring whenreassessed. Was pleasant all evening until around 3am became agitatedstating he was not receiving all of his narcotics. I explained hismaintenance narcotics were scheduled for 4x's during the day not buws81mfm, his flexeril 3x's a day as needed, and had morphine and percocetavailable and we can not give multiple narcotics all at once we would haveto wait at least 30 min inbetween. I offered to call To have orders retimed, but Pt refused, said he would speak to him this morning. He wasonce again pleasant, until shift change. Oncoming RN was asked the samequestions about narcotics I was asked hours earlier. When given the sameresponse Pt became increasingly agitated stating I was lying about himsleeping. [facility] PROGRESSon 06-19-2017 PROGRESS HNO ID: [id number] thor: Korin Gatese: NeurosurgeryAuthor Type: Nurse PractitionerType: Progress NotesFiled: 06/19/2017 9:20 AMNote Text:INPATIENT PROGRESS NOTESERVICE DATE: 06/19/2017SERVICE TIME: 9:18 AMSUBJECTIVECHIEF COMPLAINT: c/o painPRIMARY SERVICE: NeurosurgeryINTERVAL HPI: He states he did not get his pain medication. He believes atnight time they wouldn't give it to him. He has low back pain and leg painbilat. Has not worked with PT yet.Current hospital medications:dexamethasone sodium phosphate 4 mg injection (DECADRON) 4 mg INTRAVENOUSq 6 Hlactated ringers infusion 30 mL/hr INTRAVENOUS CONTINUOUSoxyCODONE IR 10 mg tab(s) (ROXICODONE) 10 mg ORAL QIDmetFORMIN 1,000 mg tab(s) (GLUCOPHAGE) 1,000 mg ORAL DAILY WITH BREAKFASTsimvastatin 20 mg tab(s) (ZOCOR) 20 mg ORAL DAILYalbuterol 2.5 mg /3 mL (0.083 %) 2.5 mg (PROVENTIL) 2.5 mg INHALATION q 6H PRNamLODIPine 10 mg tab(s) (NORVASC) 10 mg ORAL DAILYcolchicine 0.6 mg tab(s) 0.6 mg ORAL TIDpolyethylene glycol 3350 17 g packet (MIRALAX, GLYCOLAX) 17 g ORAL DAILYPRNpotassium chloride 10 mEq tablet (K-TAB) [address] mg tab(s) (PROTONIX) 40 mg ORAL DAILYescitalopram oxalate 10 mg tab(s) (LEXAPRO) 10 mg ORAL DAILYcyclobenzaprine 10 mg tab(s) (FLEXERIL) 10 mg ORAL TID PRNlevothyroxine 100 mcg tab(s) (SYNTHROID) 100 mcg ORAL DAILYNaCl 0.9% iv infusion 50 mL/hr INTRAVENOUS CONTINUOUSacetaminophen 325-650 mg tab(s) (TYLENOL) 325-650 mg ORAL q 4 H PRNoxyCODONE-acetaminophe n 5-325 mg 1-2 tablet (PERCOCET) 1-2 tablet ORAL q 4H PRNmorphine 2-5 mg injection 2-5 mg INTRAVENOUS q 2 H PRNondansetron orally disintegrating 4 mg tab(s) (ZOFRAN ODT) 4 mg ORAL q 6 HPRNondansetron (PF) 4 mg injection (ZOFRAN) 4 mg INTRAVENOUS q 6 H PRNdocusate sodium 100 mg cap(s) (COLACE) 100 mg ORAL BID[START ON 06/20/2017] bisacodyl EC 10 mg tab(s) (DULCOLAX) 10 mg ORAL DAILYmagnesium hydroxide 400 mg/5 mL 30 mL (MOM) 30 mL ORAL DAILY PRNOBJECTIVEPHYSICAL EXAM:BP 134/71 Pulse 104 Temp (Src) 98.2 (Oral) Resp 16 Ht 5' 10"(1.78m) Wt 218 lb 4.1 oz (99.0kg) SpO2 97% BMI 31.32 kg/(m2). GENERAL: Alert, no distress, cooperativeBACK: Back symmetric, ANTONIA drain with bloody drainage 220cc. Dressing dryand intact.EXTREMITIES: Normal exam of the extremitiesNEURO: Grossly normal cognition, motor function, and cranial nervesIII-XII. SENIOR x4, strength at least 4+/5.DATA:Diagnostic tests reviewed for today's visit:Most recent labs and imaging results.ASSESSMENT/PLANAc tive Problems: Lumbar stenosis POA: Yes Assessment AND Plan: s/p L2-S1 Laminectomy/ decompression-Keep ANTONIA drain-Decadron x 24 hour for BLE pain-Ambulate with PT-Pain control as orderedDiscussed with Dr. BurtATURE: Korin E Guilda, BEHAVIORAL INTERVENTIONIST PATIENT NAME: Woody PosadaTE: June 19, 2017 : 9:17 AM PAGER: [phone] [facility] THERAPY NTon 06-19-2017 THERAPY NT HNO ID: [id number] thor: Emilee (Ot/L) CecilService: Occupational TherapyAuthor Type: Occupational TherapistType: Therapy (PT/OT/Speech/Resp)Filed: 06/19/2017 1:34 PMNote Text:Occupational Therapy EvaluationSERVICE DATE: 06/19/2017SERVICE TIME: 1105 to 1142ROOM: [id number] Discharge Disposition: Home OTRecommended Discharge Disposition Comments: To increase safety, ease andindependence during ADLs, IADLs and functional mobilityRecommended Home Assist Level: 24 hour assistAnticipated Discharge Needs: Assist at Home;EquipmentRecommended Discharge Equipment: ReacherOT Recommendations to Nursing: Assist of 1 person to bathroom forADL?s;Encourage patient participation in ADL?s;OOB for meals;Equipment abram used in roomEquipment To Be Used In Room: (gait belt)OT 6 Clicks Score: 16Precautions/Activity Restrictions: Brace;FallRisk;Lines/Tube s/Drains;SpinePrecaution/ Activity Restriction Comments: LSO when ambulatingASSESSMENT:Ugo guidry Limited By PainPt presents with back pain and impaired functional mobility, ADLperformance, and strength impacting his ability to function without assistfrom caregivers. Requires frequent cues for safety due to impulsivityduring transfers and functional mobility, however, requires no more thanSBA-CGA. Pt requires assistance for ADLs due to pain level and post-opprecautions. Requires skilled therapy to address mobility and self-carelimitations as well as progress activities within safe limits, as ptappears to be functioning below baseline. Pt would benefit from continuedOT services post acute stay to increase ease, safety and independenceduring ADLs, IADLs and functional mobility in the home environment.Occupational Therapy Problem List: Decreased Strength;Decreased ActivityTolerance;Impaire d Self Care;Pain;Functional Mobility Impairment;SafetyDeficits Patient /Caregiver Goals: Go HomeGoals for Plan of Care:Grooming with: Supervision (at sink)Upper Body Dressing with: Supervision (to don lumbar brace)Lower Body Dressing with: Supervision (for pants/underwear with use ofadaptive equipment)Chair Transfer with: SupervisionToilet Transfer with: SupervisionProgress Toward Goals: Progressing as expectedRehab Potential: GoodPLAN:Treatment Frequency (times per week): 5 Current admissionTreatment Interventions: Education;Self Care / Home Management;FunctionalMobi lity TrainingPlan of Care developed with: Patient;FamilyTREATMENT INTERVENTIONS:Therapy Diagnosis: Reduced mobility-other;Decreased activities of dailyliving (ADL)Interventions Provided: Evaluation;Therapeutic Activity (32832);Self CareHome Management (35277)$ Evaluation-Low (86623) Billed Units: 1 unitTherapeutic Activity (61600) Treatment Minutes: 101 unitSkilled Intervention(s): Pt instructed in order to use lumbar brace duringfunctional mobility. Instructed pt in sit to stand technique with properhand placement and body positioning at edge of bedside chair. Ptinstructed and cued in use of toilet grab bar for increased independenceand safety with toilet transfers. Pt instructed and cued in proper postureand staying within frame of walker and slow pace of movement duringfunctional mobility to bathroom, sink, chair and bed. Pt instructed insafe walker placement during standing ADL at sink. Instructed and cued ptin stand to sit technique with lower extremities touching chair/bed andreaching back for surface. Instructed, cued and facilitated pt in supineto sit with log roll technique.Self Group Home Management (86104) Treatment Minutes: 141 unitSkilled Intervention(s): Pt educated in role of OT and importance notsitting up in chair for longer than 30-45 minutes at a time. Pt educatedin importance of out of bed activity (active participation in daily care,sitting in chair for meals and throughout day, functional mobility forhealing) for rehabilitation and to prevent functional decline.. Pteducated and cued in assessing self for dizziness/lightheadedness uponchanges in position. Instructed in post-op spinal instructions duringADLs and functional mobility. Provided instruction, cuing and facilitationfor donning/doffing lumbar brace. Pt educated in safe technique fordonning/doffing pants/underwear with use of adapted physical education aide. Pt educated on useof long handled sponge for increased ease and independence during lowerbody bathing. Pt instructed and cued in safe technique for clothingmanagement during toileting task. Pt educated on safe technique forstanding grooming task at sink. Pt educated on benefits of use of toiletarmrests for increased ease during toilet transfers, and of benefits ofuse of bedside commode frame over toilet at home. Pt educated in homesafety: Maintaining clean/well lit pathways, use of walker bag/basket tocarry items during functional mobility. Pt provided with "Spinal Care" OTinstructional handout. Pt educated in importance of use of call buttonfor all needs and to call and wait for nursing/therapist assistance forall out of bed/chair activity. Education in OT POC and dischargerecommendation.T otal Timed Code Treatment Minutes: 24Total Treatment Time (minutes): 37 (-3 min for toileting)FUNCTIONAL G CODE:OT 6 Clicks Score: 16 (06/19/17 1105)Self Care Current Status (G8987): CK (06/19/17 1105)Self Care Goal Status (G8988): CK (06/19/17 1105)Based on clinical assessment and the score on the 6 Clicks FunctionalAssessment Tool, the G code and corresponding severity modifiers aredocumented above.SUBJECTIVE:Current Hospital Course: Chart reviewed; Patient is a 57 year old male s/pL2-S1 decompression laminectomy. PMH: Anemia, DM, hepatitis, arthritis,asthma, essential HTN, back surgery (2004)Patient Report: Patient sitting in chair upon OT arrival, requesting touse bathroom. Patient declined use of lumbar brace to go to bathroom,however, agreeable to don once standing at sink. Patient stated plan forspouse to continue with assisting patient with socks upon return home.Home EnvironmentPatient Lives With: Family (spouse and grand kids)Assistance Available: interactive multimedia designer (works 3-9 during week)Entry To Home: Stairs;Without RailNumber Of Stairs Into Home: 2Number Of Stairs To Bed/Bath: 1Tub/Shower Type: tub showerEquipment Owned: Shower Chair;Commode-Bedside;Whe elchair;WheeledWalker;Can e; Long Handled SpongePrior Functional Level: Required AssistanceAssistance Required With: Cleaning;Laundry;Meals;Se lfCare;Shopping;Transport ationPrior Functional Level Comments: Pt utilizes cane to ambulate, does notwork, denies falls in last 6 months; spouse dons socks, indep otherwisefor ADLsOBJECTIVE:Responsiven ess: Alert;Awake (impulsive at times)Follows Commands: 3-step Commands;Cueing NeededCueing to Follow Commands: MinimumVision Deficits: Wears glassesCURRENT FUNCTIONAL STATUS:Current Activities of Daily Living Assist LevelFeeding Independent (per clinical judgment)Grooming Stand By Assistance (hand hygiene at sink)Bathing Upper Body Set Up (per clinical judgment seated)Bathing Lower Body Moderate Assistance (per clinical judgment seated)Dressing Upper Body Maximal Assistance (to don lumbar brace; Min to doffwhile seated)Dressing Lower Body Maximal Assistance (per clinical judgment)Toileting Stand By Assistance (standing clothing management)Functional Mobility Assist LevelRollingSupine to SitSit to Supine Minimal Assistance (HOB flat) Assistance provided for BLEs.ScootingSit to Stand Stand By Assistance (from chair to walker level; 2 trials)Stand to Sit Stand By Assistance (to chair, bed from walker level)Bed to Chair Stand By Assistance Stand PivotWheeled WalkerToilet/Commode Contact Guard Assistance (bathroom toilet with R grab bar)Functional Mobility Stand By Assistance (chair to bathroom to sink tochair ) Wheeled Walker; Verbal cues required for slower pace of movement, as pttends to move quickly. Line/tube management required.-Gait belt used during functional mobility and transfers for optimalsafetyHand Dominance: RightRange Of Motion: Within Functional LimitsStrength: Within Functional Limits ExceptLocation Strength Not WFL: Upper ExtremityLeft Upper Extremity Strength: Prox: 4/5, distal: NT per pt request d/t IVplacement, health outcomes liaison: WFLRight Upper Extremity Strength: Prox: 4/5, distal: 4/5, health outcomes liaison: WFLBalance: Dynamic Standing;Static StandingStatic Standing Balance: Stand By AssistanceDynamic Standing Balance: Stand By AssistanceActivity Tolerance: (denied lightheadedness/dizziness ; c/o painthroughout)Please see discipline specific clinical documentation flowsheet forcomplete details for this therapy evaluation/treatment.Pt and nursing agreeable to OT services. At end of session, pt resting inbed with bed in lowest position with HOB elevated. Lines/tubes/drainsintact include: SCDs, ANTONIA drain, peripheral IV. Tray table and call lightwithin reach. Pt's significant other in room at end of session. Nursing(RN) notified of current pt status.SIGNATURE: Emilee Payton OT/L PATIENT NAME: Woody NiDATE: June 19, 2017 : 1:21 PM PAGER: [phone] [facility] THERAPY NT HNO ID: [id number] thor: Samantha (Pt) Gaele: Physical TherapyAuthor Type: Physical TherapistType: Therapy (PT/OT/Speech/Resp)Filed: 06/19/2017 11:21 AMNote Text:Physical Therapy EvaluationSERVICE DATE: 06/19/2017SERVICE TIME: 1003 to 1038 time allowed for chart reviewROOM: [id number] Discharge Disposition: Home PTRecommended Discharge Disposition Comments: Pt with decline in functionpost lumbar surgery indicating a need for continued therapy post acutestay.Recommended Home Assist Level: 24 hour assist (initially then PRN)Recommended Discharge Equipment: No equipment needs anticipatedPT Recommendations to Nursing: Ambulate with device;To bathroom;Withassist of 1 person;OOB for mealsAmbulation Device: Wheeled WalkerPT 6 Clicks Score: 17Precautions/Activity Restrictions: Brace;FallRisk;Lines/Tube s/Drains;SpinePrecaution/ Activity Restriction Comments: LSO when ambulatingASSESSMENT :Pt presents with impaired functional mobility, strength, balance andendurance making functional activity difficult at this time. Pt is min toCGA with activity, unable to progress ambulation distance due to LSO notavailable at this time. Pt would be appropriate for home PT to assesssafety around home and address deficits for return to PLOF.Tolerated Full SessionPhysical Therapy Problem List: Pain;Decreased Strength;Functional MobilityImpairment;Balanc e ImpairedPatient /Caregiver Goals: Go HomeGoals for Plan of Care:Able to perform HEP with: Verbal Cues Only (for increased functionalstrength)Cornell g with: Stand By Assistance (to move to sidelying)Transfer supine to/from sit with: Stand By Assistance (HOB flat, no use ofbed rails to sit EOB)Transfer sit to/from stand with: Stand By Assistance (LRAD to move bed tochair)Ambulate with: Stand By AssistanceDistance: 150Device: (LRAD, LSO to navigate within home environment)Ambulate up and down curb step with: Stand By Assistance (to reachg bedand bath)Device: (LRAD if needed)Ambulate up and down steps with: Stand By AssistanceNumber of steps: 2Device: (LRAD if needed to enter home)Car transfer with: Verbal Cues OnlyGoal: Pt to demonstrate competence in donning/doffing LSO to allow forsafety with ambulationRehab Potential: GoodPLAN:Treatment Frequency (times per week): 7 (BID day 1 if able then QD) Current admissionTreatment Interventions: Education;Joint Mobility;Strengthening;Fu nctionalMobility Training;Balance Training;ModalitiesModali ties: IcePlan of Care developed with: PatientTREATMENT INTERVENTIONS:Therapy Diagnosis: Reduced mobility-other;Muscle Weakness(generalized);Uns teadiness on feetInterventions Provided: Evaluation;Therapeutic Activity (31257);GaitTraining (20108)$ Evaluation-Low (15826) Billed Units: 1 unitTherapeutic Activity (33991) Treatment Minutes: 141 unitSkilled Intervention(s):Instructe d patient in log roll technique - cues provided for hooklypositionInstructed patient in supine to sit pushing with upper extremities to situp from sidelying position, demonstration and verbal explanation alsoprovidedInstruction in sit to stand technique with proper hand placement and bodypositioning at edge of bed/chairInstruction in stand to sit technique with lower extremities touchingchair/bed and reaching back for surfaceEducation: Pt educated in role of PT during acute stay and PT POC, spinalprecautions, importance of OOB activity/ambulation with nursing to reducerisk of functional decline, rationale for discharge recommendation ofhomePT, use of call light 100% of the time for assist, parameters for safehome going, rationale for equipment recommendation of walker for stabilitywith gait, parameters of wearing LSOGait Training (98716) Treatment Minutes: 50 unitsSkilled Intervention(s):Instructi on in sequencing, gait pattern,Instruction in correction of gait deviationsInstruction in use of equipment, cues for sequence and patternTotal Timed Code Treatment Minutes: 19Total Treatment Time (minutes): 35SUBJECTIVE:Current Hospital Course: Chart reviewed; Pt presents s/p lumbarlaminectomy 06/18/2017. 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)Entry To Home: Stairs;Without RailNumber Of Stairs Into Home: 2Number Of Stairs To Bed/Bath: 1Tub/Shower Type: tub showerEquipment Owned: Shower Chair;Commode-Bedside;Whe elchair;WheeledWalker;Can ePrior Functional Level: Required AssistanceAssistance Required With: Cleaning;Laundry;Meals;Se lfCare;Shopping;Transport ationPrior Functional Level Comments: Pt utilizes cane to ambulate, does notwork, denies falls in last 6 monthsOBJECTIVE:Range Of Motion: Within Functional Limits ExceptLocation ROM Not WFL: AnkleLeft Ankle ROM: limited PF due to painRight Ankle ROM: limited PF due to painStrength: Within Functional Limits ExceptLocation Strength Not WFL: Hip Flexion;Knee Flexion;Knee Extension;AnkleDorsiflexi onLeft Hip Flexion Strength: 4-/5Right Hip Flexion Strength: 4-/5Left Knee Flexion Strength: 4-/5Right Knee Flexion Strength: 4-/5Left Knee Extension Strength: 4/5Right Knee Extension Strength: 4/5Left Ankle Dorsiflexion Strength: 4/5Right Ankle Dorsiflexion Strength: 4/5CURRENT FUNCTIONAL STATUS:Current Functional Mobility Assist Level Additional InformationRollingSupine to Sit Minimal Assistance HOB flat, use of bed railsSit to SupineScooting Contact Guard AssistanceSit to Stand Contact Guard Assistance X 2 trialsStand to Sit Contact Guard AssistanceBed to Chair Contact Guard Assistance Use of cane bed to chairToilet/CommodeGait Contact Guard Assistance Gait Device: Wheeled Walker Gait Distance (feet): 12 (forward/retro steps)StairsCurb StepCar TransferGeneral Gait Deviations: Heide decreasedBalance: Static Sitting;Dynamic Sitting;Static Standing;Dynamic StandingStatic Sitting Balance: IndependentDynamic Sitting Balance: IndependentStatic Standing Balance: Contact Guard AssistanceDynamic Standing Balance: Contact Guard Assistance-Patient in chair post-treatment, call [place] and personal belongings MEGGAN stallworth notified of patient status, denies needs at this time.-Gait belt in place for safety with all functional mobility-Lines/Tubes/Drai ns: Intact and as follows: peripheral IV, Q1Wminkc see discipline specific clinical documentation flowsheet forcomplete details for this therapy evaluation/treatment.SIGN ATURE: Samantha Trujillo PT PATIENT NAME: Woody PosadaTE: June 19, 2017 : 11:01 AM PAGER/CONTACT #: [phone] [facility] ANES Parminder 06-18-2017 ANES POST HNO ID: [id number] thor: Emmanuelle Grecoervice: AnesthesiologyAuthor Type: AnesthesiologistType: Anesthesia PostOpFiled: 06/18/2017 3:45 PMNote Text:POST ANESTHESIA EVALUATION NOTESERVICE DATE: 06/18/2017SERVICE TIME: 3:44 PMDOB: 1960Vitals: 06/18/1714Temp: 36.6 ?C (97.9 ?F) 37.2 ?C (99 ?F) 06/18/1715BP: 132/75 139/72 148/78 126/63 06/18/1715Pulse: 111 106 120 115 06/18/1715Resp: 18 18 18 18 06/18/1715SpO2: 97% 98% 97% 98%Validated Vital Signs: YesPOST ANES STATUS: No apparent anesthetic complications. The patient isappropriately hydrated with stable respiratory and cardiovascular status.Patient has safe and adequate airway control. The patient has appropriatepain relief and no significant post operative nausea or vomiting. Thepatient has achieved baseline mental status.Further assessment by Anesthesia Service: NoneOther Remarks:SIGNATURE: Emmanuelle Patino MD PATIENT NAME: Woody PosadaTE: June 18, 2017 : 3:44 PM PAGER/CONTACT #: [phone] [facility] ANES PREOPon 06-18-2017 ANES PREOP HNO ID: [id number] thor: Emmanuelle Grecoervice: AnesthesiologyAuthor Type: AnesthesiologistType: Anesthesia PreOpFiled: 06/18/2017 11:22 AMNote Text: ANESTHESIOLOGY DAY OF SURGERY NOTESERVICE DATE: 06/18/2017SERVICE TIME: 11:19 AMDOB: 1960Procedure(s) (LRB):DECOMPRESSION LAMINECTOMY LUMBAR POSTERIOR LEVEL 1 WITH C ARM (N/A)DECOMPRESSION LAMINECTOMY 1ST ADD'L LUMBAR SEGMENT (N/A)Surgeon(s):Abel HolderEstimated body mass index is 33.15 kg/(m2) as calculated from thefollowing: Height as of this encounter: 177.8 cm (5' 10"). Weight as of this encounter: 104.8 kg (231 lb).Most recent hematocrit and potassium results:Hematocrit 46.4 06/10/2017Potassium 3.8 06/10/2017ANES DOS/PREOP NOTE:Vitals: 024BP: 138/83Pulse: 94Resp: 18Temp: 36.6 ?C (97.9 ?F)TempSrc: Temporal ArterySpO2: 98%Weight: 104.8 kg (231 lb)Height: 177.8 cm (5' 10")ACTIVE PROBLEM LISTCirrhosis (Hcc)HepatitisThyroid DiseaseSleep ApneaDiabetes (Hcc)AsthmaEssential HypertensionHld (Hyperlipidemia)Lumbar StenosisPAST MEDICAL HISTORYDiagnosis Date- Anemia, iron deficiency- Arthritis- Asthma- Cirrhosis (HCC)- Colonic polyp- Diabetes (HCC)- Diverticula of colon- Esophageal varices (HCC)- Essential hypertension- Hepatitis- HLD (hyperlipidemia)- Sleep apnea- Thyroid diseasePAST SURGICAL HISTORYProcedure Laterality Date- BACK SURGERY HX 2005- COLONOSCOPY- WRIST SURGERY HX Left 1984FAMILY HISTORYProblem Relation Age of Onset- Prostate Cancer Father- Heart Father Open heart surgery- Diabetes Sister- Diabetes Other- Diabetes MotherSocial History:Social HistorySubstance Use Topics- Smoking status: Former Smoker Years: 4.00 Types: Cigars Quit date: 06/10/1983- Smokeless tobacco: Never Used- Alcohol use No Comment: Quit drinkingNo current facility-administered medications on file prior to encounter.No current outpatient prescriptions on file prior to encounter.Current Facility-Administered Medications:vancomycin 1 g in D5W 200 mL 1 g INTRAVENOUS Pre-Op Once Korin E Guilda 1g at 06/18/17 1100lactated ringers infusion 30 mL/hr INTRAVENOUS CONTINUOUS Korin E GuildaLast Rate: 30 mL/hr at 06/18/17 1100 30 mL/hr at 06/18/17 1100Allergies:ALLERGIESAl lergen Reactions- Allopurinol Other: See Comments Breaks out in blisters- Penicillin SwellingDOS EXAM: Adequate NPO Status: YesAnesthetic Risks, Benefits, Alternatives, Personnel and Consent Discussed:YesPatient agrees to proceed: YesPrevious Anesthesia: No history of adverse eventAirway Assessment: MP 3; Neck ROM: Full ROM without neurologic symptoms;Airway Evaluation: Short Neck and Thick neckSymptoms of Sleep Apnea: SHAYLA(+)Dentition: EdentulousAdditional Physical Exam:Lungs: Patient health status unchanged since recent history and physical.See history and physical for exam findings.Cardiac: Patient health status unchanged since recent history andphysical. See history and physical for exam findings.Additional Pertinent Findings: N/ABlood Products: Not anticipated for this procedureAnesthetic Plan: GeneralAnesthetic Monitoring: Standard ASA MonitorsPain Management Plan: Parenteral or OralASA Class: 3Other Medical Problems: NoneChronic Beta Barbara medication administered within 24 hours: N/AI have interviewed and examined the patient. I have reviewed the medicalrecord and/or the pre-anesthesia evaluation, pertinent labs, and testresults.Significant changes in the patient's condition since the History andPhysical, not otherwise documented in primary service progress notes: NoThis contains updated information obtained within 48 hours ofSurgery/Procedure.MARCOS WADDELL: Emmanuelle Patino MD PATIENT NAME: Woody Martin: June 18, 2017 : 11:19 AM CSN: [id number] [facility] BRIEF OP NOTon 06-18-2017 BRIEF OP NOT HNO ID: [id number] thor: Abel J DonichService: NeurosurgeryAuthor Type: PhysicianType: Brief Op NoteFiled: 06/18/2017 2:28 PMNote Text:BRIEF OPERATIVE NOTEPatient Name: Woody NiMRN: [id number] ID: [id number] Date: 06/18/2017Surgeon(s) and Share Holder(s):Surgeon(s) and Role: * Abel Holder - PrimaryProcedures and Anesthesia:Procedure(s) and Anesthesia Type: * DECOMPRESSION LAMINECTOMY LUMBAR POSTERIOR LEVEL 1 WITH C ARM -General * DECOMPRESSION LAMINECTOMY 1ST ADD'L LUMBAR SEGMENT - GeneralFindings: See full op reportEstimated Blood Loss: 150ccIntravenous Fluids: see anesthesiaCondition: goodSpecimens: nonePostop Diagnosis: lumbar stenosisSignature: Abel Holder, MDDate: June 18, 2017Time: 2:28 PM [facility] CASE MGT INIT [facility] 2016 CASE MGT [facility] HNO ID: [id number] thor: Monica (Rn) ELEANOR Maloneervice: Care ManagementAuthor Type: Registered NurseType: Care Mgt Initial AssessmentFiled: 06/18/2017 8:00 PMNote Text:CARE MANAGEMENT: ASSESSMENT AND DISCHARGE PLANSERVICE DATE: 06/18/2017SERVICE TIME: IMARY CARE PHYSICIAN:Jani Quezada, SANIYAhone: [phone] STATUS: InpatientPOTENTIAL DISCHARGE PLANSHomeHome OT/PTSkilled Nursing Facility/Intermediate Care FacilityTo Be DeterminedPatient/Represe ntative Stated Goals: to return homeNeeds Prior to Discharge: To Be Determined;OT/PT EvaluationHealth Insurance: Medicare, MedicaidLiving Arrangement: HomeLives With: with sig. otherFinancial Resources: DisabledPrimary Contact:Extended Emergency Contact InformationPrimary Emergency Contact: Susie Carl Jaxbtmng: Significant otherSupportive: YesOther Important Patient Contacts: NoneCAREGIVER ASSESSMENT:Caregiver is ready, willing and able to meet the patient's needs asrecommended by the inter-professional team? YesPatient's transition needs and plan for meeting these needs: tbdDoes the patient have an acute stroke diagnosis, or has the patient had astroke during this admission? NoADVANCE DIRECTIVES:Does Patient Have Advance Directives? No, Patient refusedDoes Patient Have Concerns About Advance Directives? NoPRIOR TO ADMISSION:Baseline Mental Status: Alert AND Oriented, Person, Place , Time andSituationFunctional Status: IndependentDoes Patient Currently Receive Any Community Services or Home Care? NoneEquipment Prior to Admission: Aerosols/Intermittent positivebreathing/Respira tory TreatmentsBedside [facility] PAPHEALTH:Health Issues Impacting Discharge Plan: Lumbar Decompression LaminectomyHealth Literacy Issues: NoPSYCHOSOCIAL:Is the Patient Psychosocially Complex? NoFamily/Patient Understanding of Illness/Diagnosis: yesMedication Adherence:Do you forget to take your medications? I do not forget to take mymedicationHave you ever stopped taking medications because you felt worse? None ofthe timeHave you ever taken less of your medication than what was prescribed byyour doctor? None of the timeIn the past 3 months, have you had issues obtaining one or more of yourmedications? None of the timeAre you interested in bedside delivery of your medications? NoFood Concerns:In the Last Month, Have You had Trouble Getting Food? No trouble gettingfoodDuring the Last Month, Have You Worried Whether Your Food Would Run OutBefore You Had Enough Money to Buy More? NoPsychosocial Needs: NoneUTILIZATION:Last Admission Date: noneIs this Within the Past 30 days? NoHas the Patient Been in a Detention Facility in the Past 30 days? NoFREEDOM OF CHOICE EXPLAINED:No waiting PT/OT evals.HANDOFF COMMUNICATION:to be done at dischargePt. Here s/p Lumbar Decompression Laminectomy today. PT/OT still to seept. Pt. States sig. Other [facility] is providing ride home. Has walker, cane,w/c and other DME at home. CM will continue to follow through discharge.SIGNATURE: Monica Malone RN PATIENT NAME: Woody PosadaTE: June 18, 2017 : 7:55 PM PAGER/CONTACT #: [phone] [facility] CONSULTon 06-18-2017 CONSULT HNO ID: [id number] thor: Vianey SharmaService: General Internal MedicineAuthor Type: PhysicianType: ConsultsFiled: 06/18/2017 10:22 PMNote Text:INTERNAL MEDICINEINITIAL CONSULTSERVICE DATE: 06/18/2017SERVICE TIME: 5 PMPrimary Care Physician: MORRIS Hoffmann FOR CONSULT: Medical managementREQUESTING PHYSICIAN: Abel Dockery COMPLAINT: Back painHPI: This is a 57 year old male who presents with back pain for anelective lumbar decompression that was done today. The post-op course sofar has been uneventful. Pain is controlled. No nausea, vomiting, fever,difficulty breathing.PAST MEDICAL HISTORYDiagnosis Date- Anemia, iron deficiency- Arthritis- Asthma- Cirrhosis (HCC)- Colonic polyp- Diabetes (HCC)- Diverticula of colon- Esophageal varices (HCC)- Essential hypertension- Hepatitis- HLD (hyperlipidemia)- Sleep apnea- Thyroid diseasePAST SURGICAL HISTORYProcedure Laterality Date- BACK SURGERY HX 2004- COLONOSCOPY- WRIST SURGERY HX Left 1984FAMILY HISTORYProblem Relation Age of Onset- Prostate Cancer Father- Heart Father Open heart surgery- Diabetes Sister- Diabetes Other- Diabetes MotherSocial HistorySubstance Use Topics- Smoking status: Former Smoker Years: 4.00 Types: Cigars Quit date: 06/10/1983- Smokeless tobacco: Never Used- Alcohol use No Comment: Quit drinkingMEDICATIONS: ReviewedALLERGIESAllergen Reactions- Allopurinol Other: See Comments Breaks out in blisters- Penicillin SwellingREVIEW OF SYSTEMS:All systems reviewed and negative except as noted above.OBJECTIVEPHYSICAL EXAM: BP 138/79 Pulse 118 Temp (Src) 98.2 (Oral) Resp 20 Ht 5' 10" (1.78m) Wt 218 lb 4.1 oz (99.0kg) SpO2 97% BMI 31.32kg/(m2).GENERAL: Alert, no distress, cooperativeSKIN: Skin color, texture, turgor normal. No rashes or lesions.HEAD/SINUSES: No significant findingsEYES: PERRLA, EOMIEARS: External ears normal, canals clearNOSE: Nares normal. Septum midline.OROPHARYNX: Lips, mucosa, and tongue normal. Teeth and gums normal.Oropharynx normal.NECK: No jugulovenous distention, No carotid bruits, Carotid pulse normalcontour, SuppleLUNGS: Lungs clear to auscultation, Good diaphragmatic excursionCARDIAC: Normal S1 and S2; no rubs, murmurs, or gallopsABDOMEN: Abdomen soft, non-tender, BS normal, No masses or organomegalyEXTREMITIES: Extremities normal, no deformities, edema, clubbing or skindiscoloration. Good capillary refill., No ulcersNEURO: Cranial nerves II-XII intactPULSES: 2+ radial, 2+ carotidWOUND: Clean, dry and intactDATA:Diagnostic tests reviewed for today's visit:Most recent labsMost recent imagingMost recent EKGIMPRESSION/RECOMMENDAT IONSActive Problems:Lumbar stenosis s/p decompressionAsthmaDiabet es mellitus type 2HTNHyperlipidemiaOSAAlco holic CirrhosisHepatitis C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AnxietyPLA N:Pain controlPT/OTDVT prophylaxisResume home medsMonitor blood sugarsSIGNATURE: Vianey Tiwari MD PATIENT NAME: Woody Martin: June 18, 2017 [facility] HISTORY PHYSICALon 7 HISTORY PHYSICAL HNO ID: [id number] thor: Abel HolderService: NeurosurgeryAuthor Type: PhysicianType: HANDPFiled: 06/18/2017 12:10 PMNote Text:UPDATED HISTORY AND PHYSICAL EXAMINATIONSERVICE DATE: 06/18/2017SERVICE TIME: 12:09 PMPHYSICAL EXAM MUST BE COMPLETED ON ADMISSIONThe History and Physical (completed in the past 30 days) has been reviewedand the patient has been examined. The contents accurately reflect thepatient's condition with the following additions or revisions since theHANDP was completed.Examination indicates no changes.This HANDP can be found in the Electronic Medical Record dated within 30days.SIGNATURE: Abel Holder MD PATIENT NAME: Woody Martin: June 18, 2017 : 12:09 PM PAGER: [facility] NURSING PROGon 06-18-2017 NURSING PROG HNO ID: [id number] thor: Josefina LarsenRnELEANOR Glezervice: NursingAuthor Type: Registered NurseType: Nursing Progress NoteFiled: 06/18/2017 11:10 AMNote Text:1010 pt to ASCU 7. AANDOx3. SENIOR TCX4. Ambulates with cane. Pt c/o back pain.PIV started without difficulty. VSS no s/sx of distress.1057 pt ready for OR. Family @ BS. Normal [facility] OPERATIVE NOon 06-18-2017 OPERATIVE NO HNO ID: [id number] thor: Abel HolderService: NeurosurgeryAuthor Type: PhysicianType: Operative ReportFiled: 06/20/2017 9:08 AMNote Text:[facility]- Operative ReportWOODY NIDOB: 1960 AGE: 57 SEX: MMRN: [id number] ACCTNUM: [id number] SVC: [facility] LOCATION: [id number] PHYSICIAN: Abel Holder M.D.DATE OF PROCEDURE: 06/18/2017SURGEON: Abel Holder M.D.PAYROLL AND BENEFITS ANALYST: Korin Lee ANIMAL CONTROL SPECIALIST.ANESTHESIA:PREOPERATI VE DIAGNOSIS(ES): L2-S1 spondylosis, stenosis, intractable lowback pain, and lumbar radiculopathy.POSTOPERATI VE DIAGNOSIS(ES): Same.NAME OF OPERATION: L2, L3, L4, L5, and S1 laminectomies anddecompression.INDICATI ONS: This is a 57-year-old male, who presents with clinical signsand symptoms of the above-stated diagnosis. His imaging studies arediagnostic of multilevel lumbar spondylosis, stenosis of varying degreesof severity with associated neural compression. The significant areasaffected extend from L2 through S1. He is felt to be an adequatecandidate for the procedure and has failed treatment thus far.EXPECTED LENGTH OF HOSPITAL STAY: Based on the complexity of theprocedure, the expected length of hospital stay is 2 to 3 nights ofinpatient stay.Based on the extent and complexity of the procedure, the patient isexpected to require narcotic pain medication in excess of state mandatedue to the procedure itself for a period of an estimated 1 to 4 weekspostoperatively.PROC EDURE: After carefully explaining the risks, benefits, andalternatives of the procedure, informed consent was obtained. Thepatient was taken to the operating suite and placed under generalendotracheal anesthesia. He was positioned prone on the Greg table.The lumbar region was prepped and draped in routine sterile fashion. Amidline vertical incision was made extending from L2 through S1 spinalsegments. Midline sharp dissection and electrocautery were used todissect down through a level inferior to the fascial layer, at which timea subperiosteal dissection was then undertaken to facilitate retraction ofthe paraspinal musculature and promote visualization of theabove-mentioned spinal segments. Intraoperative fluoroscopy was used forlevel localization. A combination of rongeurs, a high-speed drill, andKerrison punches were then used to remove the lamina at the L2, L3, L4,L5 and S1 segments with laminectomies at each level. A centraldecompression was carried out, followed by lateral recess decompressioneach side. Lateral recess decompression was performed utilizing theKerrison rongeurs and included wide foraminotomies at each level. Widediskectomy was carried out bilaterally at L4-5 including osteotomes andpituitary rongeurs.Operative findings included the following; there was a moderate stenosisat L2 and L3, severe stenosis at L4 and L5, and moderate stenosis at S1.The stenosis was secondary to multiple factors including facethypertrophy, redundant ligamentum flavum, disk herniations at each level. There was also epidural scarring related to previous surgery at L4-5.At the conclusion of the decompression, a blunt instrument could bepassed freely throughout. Meticulous hemostasis was achieved. Anepidural drain was applied and secured at a skin exit point with a suture. Marcaine and Exparel were infused through the tissue planes and theincision was then closed in multiple layers in the usual manner. Steriledressing was applied. The patient tolerated the procedurewell without apparent complications and postoperatively was transferred tothe Postanesthesia Care Unit in satisfactory condition.Abel Holder M.D.NeurosurgeryDD:[id number]: 06/18/2017 14:26:21T: 06/18/2017 23:12:00Job #: [id number] [facility] XR FLUOROSCOPYon 06-18-2017 XR FLUOROSCOPY * * *Final Report* * *DATE OF EXAM: Jun 18 2017 12:40PM MDX 1394 - XR FLUOROSCOPY / REASON: L2-S1 DECOMPRESSION * * * * Physician Interpretation * * * * EXAMINATION: Portable images obtained in operating room:HISTORY: L2-S1 DECOMPRESSIONFLUOROSCOPY TIME: 0:02 minutes.RESULTS/IMPRESSIO N: Intra-operative fluoroscopy was provided. Single lateral view of lumbosacral spine demonstrates tip of surgical instrument overlying the posterior lowest lumbar level.Senior Manufacturing Test Engineer: HAJA Transcribe Date/Time: Jun 19 2017 7:09ADictated by : JERRY WINSTON MDThis examination was interpreted and the report reviewed and electronically signed by: JERRY WINSTON MD on Jun 19 2017 7:09AM EST Normal [facility] NURSING PROGon 06-11-2017 NURSING PROG HNO ID: [id number] thor: Anna (Rn) Kel, RNService: (none)Author Type: Registered NurseType: Nursing Progress NoteFiled: 06/11/2017 7:46 AMNote Text:PACC visit complete on 06/10/17. HANDP by Aron Meeks CNP. Cbc/diff, Cmp,Pt/Ptt, TANDS and conabo from 06/10/17 results reviewed in chart. EKG dated05/28/17 and stress test dated 06/08/17 reviewed in chart with scan date of06/10/17. Chart check complete. Anna Begum RN [facility] APTTon 06-10-2017 aPTT 26.2 s Normal 23.0-32.4 [facility] Comment on above: Result Comment: The APTT can be used to monitor the therapeutic effect of heparin.The recommended therapeutic range for treatment of venous and arterial thrombosis with intravenous unfractionated heparin is 60 to 85 seconds, which corresponds to a heparin anti Xa activity level of 0.3 to 0.7 IU/mL.In patients with concomitant therapy with thrombolytic agents and/or platelet glycoprotein IIb/IIIa antagonists, the recommended therapeutic range is 53 to 71 seconds, corresponding to a heparin anti Xa activity level of 0.2 to 0.5 IU/mL.The APTT therapeutic range has been determined for the current lot of laboratory APTT reagent. Performed By: #### P T, PTT ####[facility], [place] [phone] CBC and Differentialon 06-10 Abs Baso 0.05 k/uL Normal 0.00-0.10 [facility] Comment on above: Performed By: #### C BCDIF, CMP ####[facility] [place] [phone] Abs [place] 0.61 k/uL Normal 0.00-0.86 [facility] Comment on above: Performed By: #### C BCDIF, CMP ####[place] [address] [address] [place] [phone] Abs Neut 4.65 k/uL Normal 1.45-7.50 [facility] Comment on above: Performed By: #### C BCDIF, CMP ####[place] [address] [address] [place] [phone] Basophils/100 WBC Auto (Bld) 0.6 % Normal [facility] Comment on above: Performed By: #### C BCDIF, CMP ####[place] [address] [address] [place] [phone] DTYPE Auto Diff Normal [facility] Comment on above: Performed By: #### C BCDIF, CMP ####[place] [address] [phone] Eosinophils 0.08 10*3/uL Normal 0.00-0.45 [facility] Comment on above: Performed By: #### C BCDIF, CMP ####[place] [address] [address] [place] [phone] Eosinophils/100 leukocytes 0.9 % Normal [facility] Comment on above: Performed By: #### C BCDIF, CMP ####[place] [address] [address] [place] [phone] Erythrocyte distribution width Auto Ratio (RBC) 13.1 % Normal 11.5-15.0 [facility] Comment on above: Performed By: #### C BCDIF, CMP ####[place] [address] [address] [place] [phone] Erythrocytes (RBC) 0.00 10*6/uL Normal [facility] Comment on above: Performed By: #### C BCDIF, CMP ####[place] [address] [address] [place] [phone] Erythrocytes (RBC) 0.0 /100 WBC Normal 0 [facility] Comment on above: Performed By: #### C BCDIF, CMP ####[place] [address] [address] [place] [phone] Erythrocytes (RBC) 5.13 10*6/uL Normal 4.20-6.00 [facility] Comment on above: Performed By: #### C BCDIF, CMP ####[place] [address] [address] [place] [phone] Hematocrit (HCT) 46.4 % Normal 39.0-51.0 [facility] Comment on above: Performed By: #### C BCDIF, CMP ####[place] [address] [address] [place] [phone] Hemoglobin mass conc (Bld) 15.8 g/dL Normal 13.0-17.0 [facility] Comment on above: Performed By: #### C BCDIF, CMP ####[place] [address] [address] [place] [phone] Lymphocytes 3.47 10*3/uL Normal 1.00-4.00 [facility] Comment on above: Performed By: #### C BCDIF, CMP ####[place] [address] [address] [place] [phone] Lymphocytes/100 leukocytes 39.2 % Normal [facility] Comment on above: Performed By: #### C BCDIF, CMP ####[place] [address] [address] [place] [phone] MCH 30.8 pG Normal 26.0-34.0 [facility] Comment on above: Performed By: #### C BCDIF, CMP ####[place] [address] [address] [place] [phone] MCHC mass conc (RBC) 34.1 g/dL Normal 30.5-36.0 [facility] Comment on above: Performed By: #### C BCDIF, CMP ####[place] [address]CTampa, [place] [phone] MCV 90.4 fL Normal 80.0-100.0 [facility] Comment on above: Performed By: #### C BCDIF, CMP ####[place] [address] [address], [place] [phone] Monocytes/100 leukocytes 6.9 % Normal [facility] Comment on above: Performed By: #### C BCDIF, CMP ####[place] [address] [address], [place] [phone] Neutrophils/100 WBC Auto (Bld) 52.4 % Normal [facility] Comment on above: Performed By: #### C BCDIF, CMP ####[address] [phone] Platelet mean volume (PMV) 11.0 fL Normal 9.0-12.7 [facility] Comment on above: Performed By: #### C BCELEAZARF, CMP ####[place] [address] [address] [place], [place] [phone] Platelets 224 10*3/uL Normal 150-400 [facility] Comment on above: Performed By: #### C BCDIF, CMP ####[place] [address] [place], [place] [phone] WBC (Leukocytes) 8.86 10*3/uL Normal 3.70-11.00 [facility] Comment on above: Performed By: #### C BCDIF, CMP ####[place] [address] [address], [place] [phone] Comp Metabolic Panelon 06-10 Alanine aminotransferase (ALT) 47 U/L Normal 10-54 [facility] Comment on above: Performed By: #### C BCDIF, CMP ####[address], [place] [phone] Albumin 4.9 g/dL Normal 3.9-4.9 [facility] Comment on above: Performed By: #### C BCDIF, CMP ####[place] [address] [address] [place] [phone] Alkaline phosphatase (ALP) 64 U/L Normal 36-108 [facility] Comment on above: Performed By: #### C BCDIF, CMP ####[place] [address] [address] [place] [phone] Anion gap 17 mmol/L Normal 9-18 [facility] Comment on above: Performed By: #### C BCDIF, CMP ####[place] [address] [address] [place] [phone] Aspartate aminotransferase (AST) 44 U/L High 14-40 [facility] Comment on above: Performed By: #### C BCDIF, CMP ####[place] [address] [address] [place] [phone] Bilirubin (total) 1.0 mg/dL Normal 0.2-1.3 [facility] Comment on above: Performed By: #### C BCDIF, CMP ####[place] [address] [address] [place] [phone] Calcium 9.4 mg/dL Normal 8.5-10.2 [facility] Comment on above: Performed By: #### C BCDIF, CMP ####[place] [address] [address] [place] [phone] Chloride 96 mmol/L Low 97-105 [facility] Comment on above: Performed By: #### C BCDIF, CMP ####[place] [address] [address] [place] [phone] CO2 21 mmol/L Low 22-30 [facility] Comment on above: Performed By: #### C BCDIF, CMP ####[place] [address] [place], [place] [phone] Creatinine 1.02 mg/dL Normal 0.73-1.22 [facility] Comment on above: Performed By: #### C LUCIANO, CMP ####[facility] [place], [place] [phone] eGFR (non-black) mL/min/{1.73_m2} Normal [facility] Comment on above: Performed By: #### C LUCIANO, CMP ####[address] [phone] Result Comment: eGFR (Estimated GFR) Units of measure: mL/min/1.73 meters squaredeGFR is derived from the reexpressed MDRD Study equation using the following parameters: serum creatinine, age, gender and race. The creatinine assay has been calibrated to be traceable to IDMS.An eGFR <60 mL/min/1.73m2 for >3 months is consistent with chronic kidney disease. Refer to KDOQI guidelines for clinical interpretation.In patients with unstable renal function, e.g. those with acute kidney injury, the eGFR may not accurately reflect actual GFR. Glucose mass conc 103 mg/dL High 74-99 [facility] Comment on above: Result Comment: The [place] Diabetes Association (ADA) provides guidance for cutoff values for fasting glucose and random glucose. The ADA defines fasting as no caloric intake for at least 8 hours. Fasting plasma glucose results between 100 to 125 mg/dL indicate increased risk for diabetes (prediabetes).Fasting plasma glucose results greater than or equal to 126 mg/dL meet the criteria for diagnosis of diabetes. In the absence of unequivocal hyperglycemia, results should be confirmed by repeat testing. In a patient with classic symptoms of hyperglycemia or hyperglycemic crisis, random plasma glucose results greater than or equal to 200 mg/dL meet the criteria for diagnosis of diabetes.Reference: Standards of Medical Care in Diabetes 2016, [place] [employer] Association. Diabetes Care. 2016.39(Suppl 1). Performed By: #### C LUCIANO, CMP ####[facility] [place], [place] [phone] Potassium molar conc 3.8 mmol/L Normal 3.7-5.1 [facility] Comment on above: Performed By: #### C BCDIF, CMP ####[facility] [address], [place] [phone] Protein 7.4 g/dL Normal 6.3-8.0 [facility] Comment on above: Performed By: #### C BCDIF, CMP ####[facility] [address]CTampa, [place] [phone] Sodium 134 mmol/L Low 136-144 [facility] Comment on above: Performed By: #### C BCDIF, CMP ####[facility] [address]CAmanda [place] [phone] Urea nitrogen 9 mg/dL Normal 9-24 [facility] Comment on above: Performed By: #### C BCDIF, CMP ####[facility] [address] [place], [place] [phone] Confirm Blood Typeon 017 ABO/RH(D) Positive Normal [facility] Comment on above: Performed By: #### C ONABO ####[facility] [address] [place] [phone] HISTORY PHYSICALon 7 HISTORY PHYSICAL HNO ID: [id number] thor: Debora (Analytics Intern) KELLY MeeksService: (none)Author Type: Nurse PractitionerType: HANDPFiled: 06/10/2017 10:29 AMNote Text:HISTORY AND PHYSICAL EXAMINATIONSERVICE DATE: 06/10/2017SERVICE TIME: 9:30 [facility] PH[facility]: MORRIS Hoffmann FOR VISIT:Woody Ni is a 57 year old male who is scheduled for L 2 - S 1DECOMPRESSION at the request of Dr. Abel Holder for consultation. Myfinal recommendation will be communicated back to the requesting physicianby way of shared medical record or letter.The patient has the following:ACTIVE PROBLEM LISTCirrhosis (Hcc)HepatitisThyroid DiseaseSleep ApneaDiabetes (Hcc)AsthmaEssential HypertensionHld (Hyperlipidemia)SUBJECTIV ECHIEF COMPLAINT: Pre-Op ExamHPI: 57 year old male presents with back pain. Patient states he had anemergency surgery on the back in 2004 due to his back "splintering intwo." He did have some relief after this surgery. Back pain is constantand sharp/shooting in sensation. Pain does also radiate into both lowerextremities. He does have some constant numbness and tingling in bothlower extremities. Any kind of activity and bending seems to aggravatethe pain. Pain medication helps to alleviate some of the pain. He doesfollow with pain management. Pain does tend to interfere with thepatient's sleep as well. He does ambulate with a cane for support. Norecent injections in the back. Denies recent fevers or chills.PAST MEDICAL HISTORYDiagnosis Date- Anemia, iron deficiency- Arthritis- Asthma- Cirrhosis (HCC)- Colonic polyp- Diabetes (HCC)- Diverticula of colon- Esophageal varices (HCC)- Essential hypertension- Hepatitis- HLD (hyperlipidemia)- Sleep apnea- Thyroid diseasePAST SURGICAL HISTORYProcedure Laterality Date- BACK SURGERY HX 2004- COLONOSCOPY- WRIST SURGERY HX Left 1984FAMILY HISTORYProblem Relation Age of Onset- Prostate Cancer Father- Heart Father Open heart surgery- Diabetes Sister- Diabetes Other- Diabetes MotherSOCIAL HISTORY:Social History Marital status: Single Spouse name: Years of education: Number of children:Social History Main Topics Smoking status: Former Smoker Packs/day: 0.00 Years: 4.00 Types: Cigars Quit date: 06/10/1983 Smokeless status: Never Used Alcohol use: No Comment: Quit drinking Drug use: NoMEDICATIONS:Prior to Admission medications as of 06/10/17 0955Medication Sig Last Dose Takingalbuterol (PROVENTIL) 2.5 mg /3 mL (0.083 %) nebulizer solution Use 2.5 mgvia nebulizer as needed. Yesalendronate (FOSAMAX) 70 mg tablet Take 70 mg by mouth once each week.YesamLODIPine (NORVASC) 10 mg tablet Take 10 mg by mouth once daily. YesTRUE METRIX GLUCOSE TEST STRIP test strip Yesclotrimazole-betametha sone (LOTRISONE) cream YesCOLCRYS 0.6 mg tablet Take 0.6 mg by mouth three times daily. Yescyclobenzaprine (FLEXERIL) 10 mg tablet Take 10 mg by mouth three timesdaily as needed. Yesescitalopram oxalate (LEXAPRO) 10 mg tablet Take 10 mg by mouth oncedaily. Yesfluticasone (FLONASE) 50 mcg/actuation nasal spray Use 1 Ringold in the noseonce daily as needed. Yesfurosemide (LASIX) 20 mg tablet Take 20 mg by mouth once daily as needed.Yesipratropium (ATROVENT) 0.02 % nebulizer solution YesTRUEPLUS LANCETS 30 gauge misc Yeslansoprazole (PREVACID) 30 mg capsule Take 30 mg by mouth once daily. Yeslevothyroxine (SYNTHROID) 100 mcg tablet Take 100 mcg by mouth once daily. Yesmeloxicam (MOBIC) 7.5 mg tablet Take 7.5 mg by mouth once daily. YesmetFORMIN (GLUCOPHAGE) 500 mg tablet Take 1,000 mg by mouth daily withbreakfast. Yesondansetron (ZOFRAN) 4 mg tablet Take 4 mg by mouth as needed. YesoxyCODONE IR (ROXICODONE) 10 mg tab Take 10 mg by mouth four times daily.Yespolyethylene glycol 3350 (MIRALAX, GLYCOLAX) 17 gram/dose powder Take 17 gby mouth once daily as needed. Yespotassium chloride SR (MICRO-K) 10 mEq CR capsule Take 10 mEq by mouthonce daily. Yespravastatin (PRAVACHOL) 40 mg tablet Take 40 mg by mouth once daily. Yestestosterone micronized, bulk, 100 % powd YesNo medication comments found.CURRENT ALLERGIES:ALLERGIESAllerg en Reactions- Allopurinol Other: See Comments Breaks out in blisters- Penicillin SwellingREVIEW OF SYSTEMS:PAIN ASSESSMENT: PainPain Score: 10/10Pain Location: Back-LowerDescription: AchingIntervention: MedicationGeneral: No weight loss, malaise or fevers.Neuro: Postive for Impaired Sensorium - SEE HPI. Denies TIAs, strokes,seizures, HAs.Respiratory: Positive for SHAYLA using CPAP. (+) Asthma - PRN nebulizer.Denies SOB with activity. No recent bronchitis or pneumonia.Cardiovascular: Positive for: Hypertension on Rx. (+) HLD on Rx. Normalstress test earlier this month. Denies CP, [place], DVT, PE, lightheaded,dizziness, palpitations or CHF.GI: Positive for GERD - well controlled on Rx. 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 Hepatitis C - stateshe has antibodies but not the disease. No treatment. Follows with . Denies vomiting, constipation, diarrhea.: Positive for nighttime frequency - up twice to void. Denies pain orburning with urination; no recent UTIs. No hematuria or incontinence. Nohistory of kidney stones or renal disease.Endocrine: Diabetes Mellitus on oral agent. Type 2. (+) 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on Rx.Hematology: No history of bleeding or clotting disorder. Pt is not takinganti-coagulation or platelet medications. No history of hematologicalsymptoms or problems.Oncology: No history of CA metastasis, chemo within 30 days, orradiotherapy within 90 days. Has not lost 10% of body wt in 6 months. Nohistory of oncological symptoms or problems.Psych: Anxiety - well controlled on Rx.Musculoskeletal: See HPI. (+) Bilateral knee pain r/t gout; has beenbetter since stopped drinking. No swelling of extremities.Skin: Negative for lesions, rash and itching.OBJECTIVEPHYSICAL EXAM:VITALS:BP 141/74 Pulse 94 Temp (Src) 99 (Tympanic) Resp 16 Ht 5' 10"(1.78m) Wt 213 lb (96.6kg) SpO2 98% BMI 30.56 kg/(m2).General: Alert and oriented, No acute distress, ObeseSkin: Normal color, no rash, no lesions.HEENT: Pupils equal, round and reactive., No carotid bruitsCardiovascular: Normal S1 AND S2, no rubs, murmurs or gallops. No JVD. Pulseregular.Lungs: Normal breath sounds, no wheezes or crackles., No chest deformitiesor chest wall tenderness.Abdomen: Soft, non-tender, no rigidity., No masses or organomegaly.Extremities: No deformity, no edema or tenderness, no joint swelling orclubbing.Neurological: Normal cognition. Ambulates with cane.Pulses: Carotid and radial pulses normal +2.Diagnostic tests reviewed for today's visit: Lab Value Units Date High Low HB No results within date range. HCT No results within date range. WBC No results within date range. PLT No results within date range. NA No results within date range. K No results within date range. GLUC No results within date range. BUN No results within date range. CREAT No results within date range. PTSEC No results within date range. INR No results within date range. APTT No results within date range. ALT No results within date range. AST No results within date range. TBILI No results within date range. TSH No results within date range. Lab Value Units Date High Low HCGQT No results within date range. UHCG No results within date range. HCG, BODY* No results within date range. Lab Value Units Date High Low ABORHD No results within date range. ABSCREEN No results within date range.No results found for: AGE5YMpnt recent labsMost recent imaging in Care EverywhereMost recent stress test in Care EverywhereEKG requested from Dr. Quezada' officeAssessmentASSESSWinchendon Hospital - Advised to continue same medication.Diabetes - well controlled on PO Rx. Last A1C - 5.4 (04/2017).HTN - BP 141/74 on RxHyperlipidemia on RxOSA - Patient is using CPAP/BIPAP. Advised to bring CPAP/BIPAP machine tohospitalCirrhosis r/t alcohol use; last drink March 2015Hepatitis C - LFTs WNL (04/2017). Follows with Dr. Reyes.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 on RxGERD on RxAnxiety on RxMETS:Climb a flight of stairs or walk up a hill (5.50 METs)Patient denies any chest pain or undue shortness of breath with the abovephysical activity.ASA Class: 3ANESTHESIA FINDINGS:Intubation History: No history of difficult intubationSignificant Anesthesia Considerations: NoneAirway Exam: General: Obese Mallampati Score is CLASS III ULBT: Unable to perform Neck: Normal appearance and function, Distance from hyoid to mentumduring neck extension is at least 3 finger breaths Mouth: Normal tongue size and Mouth opening greater than 2 finger breaths Dentition: EdentulousAirway History: No abnormal airway historySTOP BANG Score: SHAYLA uses CPAP/BiPAPPLANThis patient is optimally prepared for surgery pending LABS.CBC, CMP and EKG scanned into Tradyo.CONSULTS:Patient does not require consults for optimization at this time.The Following Tests/Procedures Have Been Initiated:Orders Placed This Encounter ACTIVATED PTT PROTHROMBIN TIME/PT TYPE + SCREEN,30 DAY CONABOPlanned Anesthetic: GeneralInstructions Given to Patient:Patient given verbal and written preop instructions and voicescomprehension and compliance.SIGNATURE: Debora Meeks CNP PATIENT NAME: Woody NiDATE: June 10, 2017 : 9:30 AM PAGER/CONTACT #: [facility] Protimeon 06-10-2017 INR Coag RelTime (Bld) 1.1 {INR} Normal 0.8-1.2 [facility] Comment on above: Result Comment: The PT/INR can be used to monitor the therapeutic effect of oral anticoagulants, such as warfarin. The recommended therapeutic range is an INR of 2.0 to 3.0 for most applications, including treatment and prevention of venous thrombosis,treatment of pulmonary embolism, prevention of strokes/TIA in patients with atrial fibrillation, prevention and treatment of thrombosis in patients with a lupus anticoagulant and prevention of systemic embolization in patients with heart valve disorders.There are certain conditions where clinicians may decide to use a lower or higher therapeutic range eg. 1.5 to 1.9 for secondary prevention of idiopathic venous thromboembolism and an INR 2.5 to 3.5 for older generation mechanical heart valves.Ansell, et al. CHEST 2004: 126:204S to 233S. Performed By: #### P T, PTT ####[facility] [place], [place] [phone] PT Sec 12.1 sec Normal 8.4-13.0 [facility] Comment on above: Performed By: #### P T, PTT ####[facility] [place], [place] [phone] Type and SCR (30D)on 017 ABO/RH(D) Positive [facility] Comment on above: Performed By: #### T SCR30 ####[facility] [address] [phone] Antibody Screen Negative [facility] Comment on above: Performed By: #### T SCR30 ####[facility] [address] [phone] HOSPon 05-27-2017 HOSP Patient:Kimberly Ni esMRN : Height:5' 10"(1.778 m)Weight:213 lb (96.616 kg)Outpatient Medications as of 06/18/17:albuterol (PROVENTIL) 2.5 mg /3 mL (0.083 %) nebulizer solutionalendronate (FOSAMAX) 70 mg tabletamLODIPine (NORVASC) 10 mg tabletTRUE METRIX GLUCOSE TEST STRIP test stripclotrimazole-betamet hasone (LOTRISONE) creamCOLCRYS 0.6 mg tabletcyclobenzaprine (FLEXERIL) 10 mg tabletescitalopram oxalate (LEXAPRO) 10 mg tabletfluticasone (FLONASE) 50 mcg/actuation nasal sprayfurosemide (LASIX) 20 mg tabletipratropium (ATROVENT) 0.02 % nebulizer solutionTRUEPLUS LANCETS 30 gauge misclansoprazole (PREVACID) 30 mg capsulelevothyroxine (SYNTHROID) 100 mcg tabletmeloxicam (MOBIC) 7.5 mg tabletmetFORMIN (GLUCOPHAGE) 500 mg tabletondansetron (ZOFRAN) 4 mg tabletoxyCODONE IR (ROXICODONE) 10 mg tabpolyethylene glycol 3350 (MIRALAX, GLYCOLAX) 17 gram/dose powderpotassium chloride SR (MICRO-K) 10 mEq CR capsulepravastatin (PRAVACHOL) 40 mg tablettestosterone micronized, bulk, 100 % powdAdmission/Clinic Administered Medications as of 06/18/17:lactated ringers infusionProblem List:Cirrhosis (HCC) [K74.60]Hepatitis [K75.9]Thyroid disease [E07.9]Sleep apnea [G47.30]Diabetes (HCC) [E11.9]Asthma [J45.909]Essential hypertension [I10]HLD (hyperlipidemia) [E78.5]Lumbar stenosis [M48.06]Allergies:Allopur inolPenicillinDate Verified: 06/18/17Lab ValuesLab Value Units Date High LowPOTA* 3.8 mmol/L 06/10/2017 5.1 3.7HEMA* 46.4 % 06/10/2017 51.0 39.0Progress Notes ([facility]):Neisha Reyes MD 06/05/2017 11:03 AM Josesito Ni is a 57 year old male here today in follow-up Cirrhosis. Patientto have back surgery on June 18. He denies abdominal pain, jaundice, rashoritching. He does complain of occasional dependent edema. States he has not usedalcohol in 25 months. Denies any abdominal Sxs. Still has back pain due tospinal stenosis. On pain management. Not on any unauthorized narcotics.Lab data- Nl. Liver profile and renal panel. Nl. CBC.Current Outpatient Prescriptions:PROAIR HFA 90 mcg/actuation inhaleralendronate (FOSAMAX) 70 mg tabletamLODIPine (NORVASC) 10 mg tabletazithromycin (ZITHROMAX) 250 mg tabletTRUE METRIX GLUCOSE TEST STRIP test stripclotrimazole-betamet hasone (LOTRISONE) creamCOLCRYS 0.6 mg tabletcyclobenzaprine (FLEXERIL) 10 mg tabletescitalopram oxalate (LEXAPRO) 10 mg tabletfluticasone (FLONASE) 50 mcg/actuation nasal sprayfurosemide (LASIX) 20 mg tablethydrOXYzine HCl (ATARAX) 25 mg tabletipratropium (ATROVENT) 0.02 % nebulizer solutionTRUEPLUS LANCETS 30 gauge misclansoprazole (PREVACID) 30 mg capsulelevothyroxine (SYNTHROID) 100 mcg tabletmeloxicam (MOBIC) 7.5 mg tabletmetFORMIN (GLUCOPHAGE) 500 mg tabletondansetron (ZOFRAN) 4 mg tabletoxyCODONE IR (ROXICODONE) 10 mg tabpolyethylene glycol 3350 (MIRALAX, GLYCOLAX) 17 gram/dose powderpotassium chloride SR (MICRO-K) 10 mEq CR capsulepravastatin (PRAVACHOL) 40 mg tabletpredniSONE (DELTASONE) 20 mg tablettestosterone micronized, bulk, 100 % powdNo current facility-administered medications for this visit.ALLERGIESAllergen Reactions- Allopurinol Other: See Comments Breaks out in blisters- Penicillin SwellingSocial HistorySubstance Use Topics- Smoking status: Former Smoker Types: Cigarettes- Smokeless tobacco: Never Used- Alcohol use No Comment: Quit drinkingPAST MEDICAL HISTORYDiagnosis Date- Anemia, iron deficiency- Arthritis- Asthma- Cirrhosis (HCC)- Colonic polyp- Diabetes (HCC)- Diverticula of colon- Esophageal varices (HCC)- Hepatitis- Sleep apnea- Thyroid diseasePAST SURGICAL HISTORYNo date: BACK SURGERY HXNo date: WRIST SURGERY HXFAMILY HISTORY Prostate Cancer Father Diabetes Sister Diabetes OtherREVIEW OF SYSTEMSReview of SystemsConstitutional: Positive for fatigue.Eyes: Positive for visual disturbance.Cardiovascula r: Positive for leg swelling.Endocrine: Positive for polydipsia.Musculoskeleta l: Positive for arthralgias and back pain.Neurological: Positive for weakness.Psychiatric/Beha vioral: Positive for sleep disturbance. AnxietyDepressionAll other systems reviewed and are negative.PHYSICAL EXAMBP 140/90 Pulse 92 Ht 5' 10" (1.78m) Wt 219 lb (99.3kg) BMI 31.42kg/(m2).Physical ExamConstitutional: He is oriented to person, place, and time. He appearswell-developed and well-nourished.HENT:Head: Normocephalic and atraumatic.Right Ear: External ear normal.Left Ear: External ear normal.Nose: Nose normal.Mouth/Throat: Oropharynx is clear and moist.Eyes: Conjunctivae and EOM are normal. Pupils are equal, round, and reactive tolight.Neck: Normal range of motion. Neck supple.Cardiovascular: Normal rate, regular rhythm, normal heart sounds and intactdistal pulses.Pulmonary/Chest: Effort normal and breath sounds normal.Abdominal: Soft. Bowel sounds are normal.Musculoskeletal: Normal range of motion.Uses a cane for free ambulation from weakness in legs.Neurological: He is alert and oriented to person, place, and time. He has normalreflexes.Skin: Skin is warm and dry.Psychiatric: He has a normal mood and affect. His behavior is normal. 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) (primary encounterdiagnosis)Type 2 diabetes mellitus without complication, without long-term current use ofinsulin (hcc)PLAN:Office Visit on 06/05/17-COMP METABOLIC PANEL-CBC + DIFFReturn in about 1 year (around 06/05/2018).Neisha Reyes MDDATE: 06/05/17TIME: 10:57 AMPrevious Version Normal [facility] Vital Signs Date Time Vital Sign Value Performing Clinician Facility 07-10-2024 15:01-0400 Body temperature 98.2 [degF] Ashley Bell MD Work Phone: [facility] [employer] 07-10-2024 15:01-0400 Diastolic blood pressure 82 mm[Hg] Ashley Bell MD Work Phone: [facility] [employer] 07-10-2024 15:01-0400 Heart rate 106 /min Ashley Bell MD Work Phone: [facility] [employer] 07-10-2024 15:01-0400 Respiratory rate 16 /min Ashley Bell MD Work Phone: [facility] [employer] 07-10-2024 15:01-0400 SaO2% (BldA) [Mass fraction] 96 % Ashley Bell MD Work Phone: [facility] [employer] 07-10-2024 15:01-0400 Systolic blood pressure 135 mm[Hg] Ashley Bell MD Work Phone: [facility] [employer] 07-05-2024 00:28-0400 Body height 177.8 cm Ashley Bell MD Work Phone: [facility] [employer] 07-05-2024 00:28-0400 Body mass index (BMI) [Ratio] 23.53 kg/m2 Ashley Bell MD Work Phone: [facility] [employer] 07-05-2024 00:28-0400 Body weight 74.4 kg Ashley Bell MD Work Phone: [facility] [employer] 04-30-2024 07:29-0400 Body temperature 96.3 [degF] Kassandra Adkins MD [facility] Phone: [facility] [facility] [employer] 04-30-2024 07:29-0400 Diastolic blood pressure 74 mm[Hg] Kassandra Adkins MD Work Phone: [facility] [employer] 04-30-2024 07:29-0400 Heart rate 68 /min Kassandra Adkins MD Work Phone: [facility] [employer] 04-30-2024 07:29-0400 Respiratory rate 17 /min Kassandra Adkins MD Work Phone: [facility] [employer] 04-30-2024 07:29-0400 SaO2% (BldA) [Mass fraction] 99 % Kassandra Adkins MD Work Phone: [facility] [employer] 04-30-2024 07:29-0400 Systolic blood pressure 134 mm[Hg] Kassandra Adkins MD Work Phone: [facility] [employer] 04-30-2024 06:11-0400 Body mass index (BMI) [Ratio] 25.68 kg/m2 Kassandra Adkins MD Work Phone: [facility] [employer] 04-30-2024 06:11-0400 Body weight 81.19 kg Kassandra Adkins MD Work Phone: [facility] [employer] 04-22-2024 20:43-0400 Body height 177.8 cm Kassandra Adkins MD Work Phone: [facility] [employer] 04-04-2024 17:44-0400 Diastolic blood pressure 75 mm[Hg] Júnior Lo MD Work Phone: [facility] [employer] 04-04-2024 17:44-0400 Heart rate 96 /min Júnior Lo MD Work Phone: [facility] [employer] 04-04-2024 17:44-0400 Respiratory rate 17 /min Júnior Lo MD Work Phone: [facility] [employer] 04-04-2024 17:44-0400 Systolic blood pressure 140 mm[Hg] Júnior Lo MD Work Phone: [facility] [employer] 04-04-2024 16:45-0400 SaO2% (BldA) [Mass fraction] 100 % Júnior Lo MD Work Phone: [facility] [employer] 04-04-2024 15:28-0400 Body height 177.8 cm Júnior Lo MD Work Phone: [facility] [employer] 04-04-2024 15:28-0400 Body mass index (BMI) [Ratio] 22.96 kg/m2 Júnior Lo MD Work Phone: [facility] [employer] 04-04-2024 15:28-0400 Body temperature 97.3 [degF] Júnior Lo MD Work Phone: [employer] 04-04-2024 15:28-0400 Body weight 72.58 kg Júnior Lo MD Work Phone: [employer] 03-09-2024 10:31-0400 Diastolic blood pressure 92 mm[Hg] Nir Driscoll DO Work Phone: [employer] 03-09-2024 10:31-0400 Systolic blood pressure 166 mm[Hg] Nir Driscoll DO Work Phone: [employer] 03-09-2024 09:45-0400 Heart rate 103 /min Nir Driscoll DO Work Phone: [employer] 03-09-2024 09:45-0400 Respiratory rate 16 /min Nir Driscoll DO Work Phone: [employer] 03-09-2024 09:45-0400 SaO2% (BldA) [Mass fraction] 98 % Nir Driscoll DO Work Phone: [employer] 03-08-2024 22:34-0400 Body height 177.8 cm Nir Driscoll DO Work Phone: [employer] 03-08-2024 22:34-0400 Body mass index (BMI) [Ratio] 23.68 kg/m2 Nir Driscoll DO Work Phone: [employer] 03-08-2024 22:34-0400 Body weight 74.84 kg Nir Driscoll DO Work Phone: [employer] 03-08-2024 22:32-0400 Body temperature 97.9 [degF] Nir Driscoll DO Work Phone: [facility] [employer] 01-26-2024 07:47-0400 Body temperature 97.39 [degF] Daniel Ewing DO Work Phone: [employer] [employer] 01-26-2024 07:47-0400 Diastolic blood pressure 78 mm[Hg] Daniel Gombash DO Work Phone: [employer] 01-26-2024 07:47-0400 Heart rate 82 /min Daniel Gombash DO Work Phone: [employer] 01-26-2024 07:47-0400 Respiratory rate 18 /min Daniel Gombash DO Work Phone: [employer] 01-26-2024 07:47-0400 SaO2% (BldA) [Mass fraction] 97 % Daniel Gombash DO Work Phone: [employer] 01-26-2024 07:47-0400 Systolic blood pressure 138 mm[Hg] Daniel Gombash DO Work Phone: [employer] 01-26-2024 05:50-0400 Body mass index (BMI) [Ratio] 24.85 kg/m2 Daniel Gombash DO Work Phone: [employer] 01-26-2024 05:50-0400 Body weight 78.56 kg Daniel Gombash DO Work Phone: [employer] 01-19-2024 09:58-0400 Body height 177.8 cm Daniel Gombash DO Work Phone: [employer] 10-27-2023 11:46-0500 Body temperature 97.39 [degF] Khurram Bob MD Work Phone: [employer] 10-27-2023 11:46-0500 Diastolic blood pressure 93 mm[Hg] Khurram Bob MD Work Phone: [employer] 10-27-2023 11:46-0500 Heart rate 101 /min Khurram Bob MD Work Phone: [employer] 10-27-2023 11:46-0500 Respiratory rate 16 /min Khurram Bob MD Work Phone: [employer] 10-27-2023 11:46-0500 SaO2% (BldA) [Mass fraction] 97 % Khurram Bob MD Work Phone: [employer] 10-27-2023 11:46-0500 Systolic blood pressure 134 mm[Hg] Khurram Bob MD Work Phone: [facility] [employer] 10-22-2023 10:18-0500 Body height 177.8 cm Khurram Bob MD Work Phone: [facility] [employer] 10-21-2023 17:52-0500 Body mass index (BMI) [Ratio] 22.96 kg/m2 Khurram Bob MD Work Phone: [facility] [employer] 10-21-2023 17:52-0500 Body weight 72.58 kg Khurram Bob MD Work Phone: [facility] [employer] 07-05-2023 07:36-0400 Body temperature 98.29 [degF] Steve Whitley MD Work Phone: [facility] [employer] 07-05-2023 07:36-0400 Diastolic blood pressure 90 mm[Hg] Steve Whitley MD Work Phone: [facility] [employer] 07-05-2023 07:36-0400 Heart rate 89 /min Steve Whitley MD Work Phone: [facility] [employer] 07-05-2023 07:36-0400 Respiratory rate 17 /min Steve Whitley MD Work Phone: [facility] [employer] 07-05-2023 07:36-0400 SaO2% (BldA) [Mass fraction] 97 % Steve Whitley MD Work Phone: [facility] [employer] 07-05-2023 07:36-0400 Systolic blood pressure 147 mm[Hg] Steve Whitley MD Work Phone: [facility] [employer] 07-03-2023 11:31-0400 Body height 177.8 cm Steve Whitley MD Work Phone: [facility] [employer] 04-15-2023 07:46-0400 Body temperature 97.2 [degF] Richie Acosta MD Work Phone: [facility] [employer] 04-15-2023 07:46-0400 Diastolic blood pressure 88 mm[Hg] Richie Acosta MD Work Phone: [facility] [employer] 04-15-2023 07:46-0400 Heart rate 82 /min Richie Acosta MD Work Phone: [facility] [employer] 04-15-2023 07:46-0400 Respiratory rate 18 /min Richie Acosta MD Work Phone: [facility] [employer] 04-15-2023 07:46-0400 SaO2% (BldA) [Mass fraction] 100 % Richie Acosta MD Work Phone: [facility] [employer] 04-15-2023 07:46-0400 Systolic blood pressure 142 mm[Hg] Richie Acosta MD Work Phone: [facility] [employer] 04-11-2023 08:39-0400 Body height 177.8 cm Richie Acosta MD Work Phone: [facility] [employer] 04-10-2023 08:28-0400 Body mass index (BMI) [Ratio] 22.96 kg/m2 Richie Acosta MD Work Phone: [facility] [employer] 04-10-2023 08:28-0400 Body weight 72.58 kg Richie Acosta MD Work Phone: [facility] [employer] 04-07-2023 12:14-0400 Body temperature 98.2 [degF] José Luis Bermudez MD Work Phone: [facility] [employer] 04-07-2023 12:14-0400 Diastolic blood pressure 83 mm[Hg] José Luis Bermudez MD Work Phone: [facility] [employer] 04-07-2023 12:14-0400 Heart rate 100 /min José Luis Bermudez MD Work Phone: [facility] [employer] 04-07-2023 12:14-0400 Respiratory rate 18 /min José Luis Bermudez MD Work Phone: [facility] [employer] 04-07-2023 12:14-0400 SaO2% (BldA) [Mass fraction] 97 % José Luis Bermudez MD Work Phone: [facility] [employer] 04-07-2023 12:14-0400 Systolic blood pressure 127 mm[Hg] José Luis Bermudez MD Work Phone: [facility] [employer] 04-04-2023 14:36-0400 Body height 177.8 cm José Luis Bermudez MD Work Phone: [facility] [employer] 04-02-2023 15:52-0400 Body mass index (BMI) [Ratio] 22.96 kg/m2 José Luis Bermudez MD Work Phone: [facility] [employer] 04-02-2023 15:52-0400 Body weight 72.58 kg José Luis Bermudez MD Work Phone: [facility] [employer] 02-14-2023 07:42-0400 Body temperature 97.3 [degF] Rubén Nesheim DO Work Phone: [facility] [employer] 02-14-2023 07:42-0400 Diastolic blood pressure 75 mm[Hg] Rubén Nesheim DO Work Phone: [facility] [employer] 02-14-2023 07:42-0400 Heart rate 91 /min Rubén Nesheim DO Work Phone: [facility] [employer] 02-14-2023 07:42-0400 Respiratory rate 17 /min Rubén Nesheim DO Work Phone: [facility] [employer] 02-14-2023 07:42-0400 SaO2% (BldA) [Mass fraction] 99 % Rubén Nesheim DO Work Phone: [facility] [employer] 02-14-2023 07:42-0400 Systolic blood pressure 123 mm[Hg] Rubén Nesheim DO Work Phone: [facility] [employer] 02-13-2023 05:53-0400 Body mass index (BMI) [Ratio] 26.14 kg/m2 Rubén Nesheim DO Work Phone: [facility] [employer] 02-13-2023 05:53-0400 Body weight 82.64 kg Rubén Nesheim DO Work Phone: [facility] [employer] 02-11-2023 11:27-0400 Body height 177.8 cm Rubén Nesheim DO Work Phone: [employer] 01-28-2023 10:14-0400 Body height 177.8 cm Beryl Friedt PA-C Work Phone: [employer] [employer] 01-28-2023 10:14-0400 Body mass index (BMI) [Ratio] 25.4 kg/m2 Beryl Friedt PA-C Work Phone: [facility] [employer] 01-28-2023 10:14-0400 Body temperature 98.2 [degF] Beryl Friedt PA-C Work Phone: [facility] [employer] 01-28-2023 10:140400 Body weight 80.29 kg Beryl Friedt PA-C Work Phone: [employer] [employer] 01-28-2023 10:14-0400 Diastolic blood pressure 64 mm[Hg] Beryl Friedt PA-C Work Phone: [facility] [employer] 01-28-2023 10:14-0400 Heart rate 86 /min Beryl Friedt PA-C Work Phone: [employer] 01-28-2023 10:14-0400 Systolic blood pressure 130 mm[Hg] Beryl Friedt PA-C Work Phone: [employer] 01-09-2023 14:06-0400 Diastolic blood pressure 77 mm[Hg] Júnior Lo MD Work Phone: [employer] 01-09-2023 14:06-0400 Heart rate 79 /min Júnior Lo MD Work Phone: [employer] 01-09-2023 14:06-0400 Respiratory rate 17 /min Júnior Lo MD Work Phone: [employer] 01-09-2023 14:06-0400 SaO2% (BldA) [Mass fraction] 100 % Júnior Lo MD Work Phone: [employer] 01-09-2023 14:06-0400 Systolic blood pressure 126 mm[Hg] Júnior Lo MD Work Phone: [facility] [employer] 01-09-2023 11:34-0400 Body height 177.8 cm Júnior Lo MD Work Phone: [facility] [employer] 01-09-2023 11:34-0400 Body mass index (BMI) [Ratio] 26.54 kg/m2 Júnior Lo MD Work Phone: [facility] [employer] 01-09-2023 11:34-0400 Body temperature 98.01 [degF] Júnior Lo MD Work Phone: [facility] [employer] 01-09-2023 11:34-0400 Body weight 83.92 kg Júnior Lo MD Work Phone: [facility] [employer] 01-05-2023 11:15-0400 Body temperature 97.3 [degF] Ruperto Fang MD Work Phone: [facility] [employer] 01-05-2023 11:15-0400 Heart rate 92 /min Ruperto Fang MD Work Phone: [facility] [employer] 01-05-2023 11:15-0400 Respiratory rate 15 /min Ruperto Fang MD Work Phone: [facility] [employer] 01-05-2023 11:15-0400 SaO2% (BldA) [Mass fraction] 99 % Ruperto Fang MD Work Phone: [facility] [employer] 01-05-2023 11:00-0400 Diastolic blood pressure 74 mm[Hg] Ruperto Fang MD Work Phone: [facility] [employer] 01-05-2023 11:00-0400 Systolic blood pressure 145 mm[Hg] Ruperto Fang MD Work Phone: [facility] [employer] 01-05-2023 07:55-0400 Body height 177.8 cm Ruperto Fang MD Work Phone: [facility] [employer] 01-05-2023 07:55-0400 Body mass index (BMI) [Ratio] 26.26 kg/m2 Ruperto Fang MD Work Phone: [facility] [employer] 01-05-2023 07:55-0400 Body weight 83.01 kg Ruperto Fang MD Work Phone: [facility] [employer] 12-25-2022 07:39-0500 Body temperature 97.59 [degF] Rubén Nesheim DO Work Phone: [facility] [employer] 12-25-2022 07:39-0500 Diastolic blood pressure 66 mm[Hg] Rubén Nesheim DO Work Phone: [facility] [employer] 12-25-2022 07:39-0500 Heart rate 92 /min Rubén Nesheim DO Work Phone: [facility] [employer] 12-25-2022 07:39-0500 Respiratory rate 16 /min Rubén Nesheim DO Work Phone: [facility] [employer] 12-25-2022 07:39-0500 SaO2% (BldA) [Mass fraction] 96 % Rubén Nesheim DO Work Phone: [facility] [employer] 12-25-2022 07:39-0500 Systolic blood pressure 104 mm[Hg] Rubén Nesheim DO Work Phone: [facility] [employer] 12-23-2022 07:04-0500 Body height 177.8 cm Rubén Nesheim DO Work Phone: [facility] [employer] 12-23-2022 01:13-0500 Body mass index (BMI) [Ratio] 25.46 kg/m2 Rubén Nesheim DO Work Phone: [facility] [employer] 12-23-2022 01:13-0500 Body weight 80.5 kg Rubén Nesheim DO Work Phone: [facility] [employer] 11-07-2022 11:38-0500 Body height 177.8 cm Ruperto Fang MD Work Phone: [facility] [employer] 11-07-2022 11:38-0500 Body mass index (BMI) [Ratio] 26.4 kg/m2 Ruperto Fang MD Work Phone: [facility] [employer] 11-07-2022 11:38-0500 Body temperature 96.69 [degF] Ruperto Fang MD Work Phone: [facility] 11-07-2022 11:38-0500 Body weight 83.46 kg Ruperto Fang MD Work Phone: [facility] 11-07-2022 11:38-0500 Diastolic blood pressure 105 mm[Hg] Ruperto Fang MD Work Phone: [facility] 11-07-2022 11:38-0500 Heart rate 103 /min Ruperto Fang MD Work Phone: [facility] 11-07-2022 11:38-0500 Systolic blood pressure 163 mm[Hg] Ruperto Fang MD Work Phone: [facility] 06-25-2022 15:12-0400 Body height 177.8 cm Munira Kalka PA-C Work Phone: [facility] 06-25-2022 15:12-0400 Body weight 74.39 kg Munira Kalka PA-C Work Phone: [facility] 06-25-2022 15:12-0400 Diastolic blood pressure 88 mm[Hg] Munira Kalka PA-C Work Phone: [facility] 06-25-2022 15:12-0400 Heart rate 102 /min Munira Kalka PA-C Work Phone: [facility] 06-25-2022 15:12-0400 Systolic blood pressure 142 mm[Hg] Munira Kalka PA-C Work Phone: [facility] 06-06-2022 08:02-0400 Body temperature 97.11 [degF] Daniel Gombash DO Work Phone: [facility] 06-06-2022 08:02-0400 Diastolic blood pressure 81 mm[Hg] Daniel Gombash DO Work Phone: [facility] 06-06-2022 08:02-0400 Heart rate 96 /min Daniel Gombash DO Work Phone: [facility] 06-06-2022 08:02-0400 Respiratory rate 18 /min Daniel Gombash DO Work Phone: [facility] 06-06-2022 08:02-0400 SaO2% (BldA) [Mass fraction] 99 % Daniel Gombash DO Work Phone: [facility] 06-06-2022 08:02-0400 Systolic blood pressure 130 mm[Hg] Daniel Gombash DO Work Phone: [facility] 06-05-2022 12:25-0400 Body height 177.8 cm Daniel Gombash DO Work Phone: [facility] 06-05-2022 12:25-0400 Body mass index (BMI) [Ratio] 25.4 kg/m2 Daniel Gombash DO Work Phone: [facility] 06-05-2022 12:25-0400 Body weight 80.29 kg Daniel Gombash DO Work Phone: [facility] 05-15-2022 18:35-0400 Diastolic blood pressure 74 mm[Hg] Hany Ybarra MD Work Phone: [facility] 05-15-2022 18:35-0400 Heart rate 100 /min Hany Ybarra MD Work Phone: [facility] 05-15-2022 18:35-0400 Respiratory rate 16 /min Hany Ybarra MD Work Phone: [facility] 05-15-2022 18:35-0400 SaO2% (BldA) [Mass fraction] 97 % Hany Ybarra MD Work Phone: [facility] 05-15-2022 18:35-0400 Systolic blood pressure 127 mm[Hg] Hany Ybarra MD Work Phone: [facility] 05-15-2022 17:05-0400 Body height 177.8 cm Hany Ybarra MD Work Phone: [facility] 05-15-2022 17:05-0400 Body mass index (BMI) [Ratio] 25.4 kg/m2 Hany Ybarra MD Work Phone: [facility] 05-15-2022 17:05-0400 Body temperature 98.49 [degF] Hany Ybarra MD Work Phone: [facility] 05-15-2022 17:05-0400 Body weight 80.29 kg Hany Ybarra MD Work Phone: [facility] 06-25-2020 00:27-0400 BP Diastolic 96 mm[Hg[facility] [place] [facility] [place] 06-25-2020 00:27-0400 BP Systolic 153 mm[Hg] [facility] [place] [facility] [place] 06-25-2020 00:27-0400 Pulse (Heart Rate) 97 /min [facility] [place] [place] 06-25-2020 00:27-0400 Pulse Oximetry 95 % [facility] [place] [facility] [place] 06-25-2020 00:27-0400 Respiratory Rate 18 /[facility] [place] [place] 06-24-2020 22:04-0400 Body Temperature 97.3 [degF] [facility] [place] 06-24-2020 22:01-0400 BMI (Body Mass Index) 29.89 kg/m2 [facility] [place] 06-24-2020 22:01-0400 Body weight 94.48 kg [facility] [place] [facility] [place] 06-24-2020 22:01-0400 Height 177.8 cm [facility] [place] [facility] [place] Encounters Encounter Date Encounter Type Care Provider Facility Start: 10-03-2024 End: 10-08-2024 [facility] Start: 10-03-2024 End: 10-08-2024 Patient encounter procedure Savanna Montgomery Clinical Communication Start: 07-22-2024 End: 08-01-2024 Evaluation and management of inpatient [facility] Start: 07-10-2024 End: 07-21-2024 Evaluation and management of inpatient QUYNH MCKEON [facility] Start: 07-06-2024 End: 07-06-2024 Telephone encounter Verónica Pierce PA-C Work Phone: [facility] [place] Comment on above: Care Coordination Start: 07-04-2024 End: 07-04-2024 Subsequent hospital visit by physician [facility] Exam Room [address] [facility] [address] Comment on above: Arrived Start: 07-04-2024 End: 07-04-2024 Emergency department patient visit ASHLEY BELL [facility] Start: 07-04-2024 End: 07-10-2024 Evaluation and management of inpatient Ashley Bell MD Work Phone: [facility] Trauma Neuro Progressive Care Unit PCU 3W Comment on above: Metabolic acidosis, increased anion gap (Primary Dx); Ketosis (HCC); Alcohol use; Hypokalemia; Hypomagnesemia Start: 06-06-2024 ambulatory Jani Alvarezsaros Facility :[facility] Start: 05-30-2024 ambulatory [facility] Facility :[facility] Start: 05-27-2024 ambulatory Kevin SALES Facility:[facility] Start: 05-23-2024 End: 08-21-2024 Refill Carmen Jeronimo MD Work Phone: [facility] Medical Surgical Unit MSU 4S Start: 05-21-2024 [facility] Start: 05-21-2024 End: 05-26-2024 Evaluation and management of inpatient Ruddy Jopperi Facility:[facility] Start: 05-02-2024 End: 05-03-2024 Emergency department patient visit Jani Quezada Facility:[facility] Start: 04-22-2024 End: 04-30-2024 Evaluation and management of inpatient Kassandra Adkins MD Work Phone: [facility] Medical Surgical Unit MSU 4S Comment on above: Alcohol use disorder (Primary Dx) Start: 04-08-2024 End: 04-09-2024 Emergency department patient visit YUE DU[facility] Start: 04-05-2024 ambulatory Jani Quezada Facility :[facility] Start: 04-05-2024 End: 04-08-2024 Evaluation and management of inpatient aJni Alvarezsamarti Facility:[facility] Start: 04-04-2024 End: 04-04-2024 Subsequent hospital visit by physician [facility] Exam Room [address] [facility] [address] Comment on above: Arrived Start: 04-04-2024 End: 04-04-2024 Emergency department patient visit Júnior Lo MD Work Phone: [facility] Comment on above: Syncope, unspecified syncope type (Primary Dx); Elevated lactic acid level Start: 03-08-2024 End: 03-09-2024 Evaluation and management of inpatient Nir Driscoll DO Work Phone: [facility] ED Comment on above: Hyponatremia (Primar y Dx); Alcoholic intoxication without complication (CMS/HCC) (HCC); Alcohol withdrawal syndrome without complication (HCC); High anion gap metabolic acidosis Start: 02-26-2024 ambulatory José Luis Alarcon RN [facility] Start: 02-26-2024 Patient encounter procedure José Luis Alarcon RN [facility] Communication Start: 01-15-2024 End: 01-26-2024 Evaluation and management of inpatient Daniel Ewing DO Work Phone: [facility] Observation Unit 5E Comment on above: Alcohol withdrawal s yndrome without complication (HCC) (Primary Dx); COVID-19; Leg edema; Other pancytopenia (CMS/HCC) (HCC); Alcoholic cirrhosis of liver without ascites (CMS/HCC) (HCC); Mild recurrent major depression (HCC) Start: 12-25-2023 End: 12-26-2023 ambulatory MUNIRA STALEY Facility:[facility] Start: 12-24-2023 End: 12-24-2023 ambulatory JANI QUEZADA Facility:[facility] Start: 12-17-2023 End: 12-17-2023 Subsequent hospital visit by physician Carmen Jeronimo MD Work Phone: [facility] Addiction IOP Comment on above: Arrived Start: 12-15-2023 End: 12-15-2023 Subsequent hospital visit by physician Carmen Jeronimo MD Work Phone: [facility] Addiction IOP Comment on above: Arrived Start: 12-07-2023 End: 12-07-2023 Subsequent hospital visit by physician Carmen Jeronimo MD Work Phone: [facility] Addiction IOP Comment on above: Severe alcohol use d isorder (HCC) Start: 10-20-2023 End: 10-27-2023 Evaluation and management of inpatient Khurram Bob MD Work Phone: [facility] Medical Surgical Unit MSU 4S Comment on above: 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 (Primary Dx); Alcohol use disorder, severe, dependence (HCC); Nausea and vomiting, unspecified vomiting type; Chronic pain syndrome Start: 06-30-2023 End: 07-05-2023 Evaluation and management of inpatient Steve Whitley MD Work Phone: [facility] 2E TELEMETRY Comment on above: Hyponatremia (Primar y Dx) Start: 05-26-2023 ambulatory Corinne Romeo RN [facility] Start: 05-26-2023 Patient encounter procedure Corinne Romeo RN [facility] Clinical Communication Start: 04-09-2023 End: 04-15-2023 Evaluation and management of inpatient Richie Acosta MD Work Phone: [facility] 2E TELEMETRY Comment on above: Hyponatremia (Primar y Dx); DENNYS (acute kidney injury) (CMS/HCC) (HCC) Start: 04-05-2023 Telephone encounter Anna Abbott CNP Work Phone: [facility] Gastroenterology Comment on above: Hospital Follow-up Start: 04-02-2023 End: 04-02-2023 Subsequent hospital visit by physician [facility] Us Exam Room 2 [facility] Comment on above: Arrived Start: 04-02-2023 End: 04-07-2023 Evaluation and management of inpatient José Luis Bermudez MD Work Phone: [facility] 4E DETOX Comment on above: Alcohol withdrawal s yndrome without complication (HCC) (Primary Dx); Alcohol use disorder Start: 02-16-2023 Telephone encounter Casandra Salinas RN [facility] Clinical Communication Comment on above: Hospital Follow-up Start: 02-10-2023 End: 02-14-2023 Evaluation and management of inpatient Rubén Hoang DO Work Phone: [facility] 2E TELEMETRY Comment on above: Hyponatremia (Primar y Dx); Alcohol dependence with unspecified alcohol-induced disorder (HCC); Chronic pain syndrome; Myalgia; Acute kidney injury (CMS/HCC) (HCC) Start: 01-28-2023 End: 01-28-2023 Postop follow up visit related to original px Beryl Holder PA-C Work Phone: [facility] Comment on above: Encounter for postop erative care (Primary Dx); Gallbladder sludge; 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) Start: 01-12-2023 Telephone encounter Ruperto castelan MD Work Phone: [facility] Comment on above: Advice Only Start: 01-09-2023 End: 01-09-2023 Emergency department patient visit Júnior Lo MD Work Phone: [facility] Comment on above: Ascites due to alcoh olic cirrhosis (CMS/HCC) (HCC) (Primary Dx) Start: 01-05-2023 End: 01-05-2023 Subsequent hospital visit by physician Ruperto Fang MD Work Phone: [facility] Comment on above: RUQ pain (Primary Dx ); Right upper quadrant pain; Other specified diseases of gallbladder Start: 12-30-2022 Telephone encounter Beryl chandler PA-C Work Phone: [facility] Start: 12-27-2022 Telephone encounter Leah Kimble RN [facility] Clinical Communication Comment on above: Hospital Follow-up Start: 12-22-2022 End: 12-22-2022 Subsequent hospital visit by physician [facility] Ct Exam Room [address] [facility] [address] Comment on above: Arrived Canceled (Patient) Start: 12-22-2022 End: 12-25-2022 Evaluation and management of inpatient Rubén Hoang DO Work Phone: [facility] Comment on above: DENNYS (acute kidney in jury) (CMS/HCC) (HCC) (Primary Dx); Acute kidney injury (CMS/HCC) (HCC) Start: 12-11-2022 Orders Only Beryl Holder PA-C Work Phone: [facility] Comment on above: Preop examination (P rimary Dx) Start: 12-11-2022 Preprocedural examination done Beryl Gallo EDWARDS Work Phone: [facility] Start: 11-20-2022 Telephone encounter Ruperto castelan MD Work Phone: [facility] [place] [facility] Comment on above: Surgery Scheduling Start: 11-07-2022 End: 11-07-2022 Office outpatient new 30 minutes Ruperto Fang MD Work Phone: [facility] Comment on above: Right upper quadrant abdominal pain (Primary Dx); Gallbladder sludge; Alcoholic cirrhosis of liver without ascites (CMS/HCC) (HCC) Start: 07-11-2022 Telephone encounter Munira RAMIREZC Work Phone: [facility] Comment on above: Results Start: 07-08-2022 Telephone encounter Munira SHAH-C Work Phone: [facility] Comment on above: Results Start: 07-08-2022 End: 07-08-2022 Subsequent hospital visit by physician [facility] Work Phone: Radiology Comment on above: History of hepatitis C [Z86.19] Start: 06-25-2022 End: 06-25-2022 Patient encounter procedure Munira Staley PA-C Work Phone: [facility] Comment on above: Abnormal CT scan, st [facility] (Primary Dx); History of esophageal varices; Diarrhea, unspecified type; History of hepatitis C; Abnormal results of liver function studies Start: 06-04-2022 End: 06-06-2022 Evaluation and management of inpatient Ashlyn Atkinson [facility] Start: 06-03-2022 End: 06-06-2022 Evaluation and management of inpatient Daniel Faulknerjonathanmicheal Work Phone: [facility] Comment on above: Syncope and collapse (Primary Dx); Hyponatremia; Acute alcoholic intoxication without complication (HCC); Spinal stenosis of lumbar region, unspecified whether neurogenic claudication present Start: 05-15-2022 End: 05-15-2022 Emergency department patient visit Jani Quezada [facility] Start: 05-15-2022 End: 05-15-2022 Emergency department patient visit Hany Ybarra MD Work Phone: [facility] Comment on above: Acute exacerbation o f chronic low back pain (Primary Dx); Non-intractable vomiting with nausea, unspecified vomiting type; Dehydration Start: 06-24-2020 End: 06-25-2020 Emergency department patient visit Jani Quezada [facility] ED Comment on above: Right flank pain (Pr imary Dx); Penile discharge; Malaise and fatigue; Nausea Start: 07-19-2019 End: 07-19-2019 Subsequent hospital visit by physician Daniel London Work Phone: [facility] Comment on above: Arrived Start: 07-16-2019 End: 07-16-2019 Subsequent hospital visit by physician Daniel London Work Phone: [facility] Laboratory Start: 06-18-2017 End: 06-20-2017 Evaluation and management of inpatient [facility] Start: 06-10-2017 End: 06-10-2017 Ambulatory [facility] Procedures Date Procedure Procedure Detail Performing Clinician Start: 07-11-2024 Lipid 1996 panel - S tomas or Plasma Verónica Pierce PA-C Work Phone: Start: 07-11-2024 Thyrotropin [Units/v olume] in Serum or Plasma Verónica Pierce PA-C Work Phone: Start: 07-10-2024 SARS-CoV-2 (COVID-19 ) Ag [Presence] in Respiratory specimen by Rapid immunoassay Emiliano Church [employer] Work Phone: Start: 07-10-2024 Basic metabolic pane l calcium total Emiliano Church DO Work Phone: Start: 07-09-2024 Basic metabolic pane l calcium total Emiliano Church DO Work Phone: Start: 07-08-2024 Basic metabolic pane l calcium total Emiliano Lulu. Church DO Work Phone: Start: 07-07-2024 Basic metabolic pane l calcium total Emiliano Lulu. Church DO Work Phone: Start: 07-06-2024 Basic metabolic pane l calcium total Emiliano Lawson. Church DO Work Phone: Start: 07-05-2024 Fat/lipids feces qualitative Verónica SHAH-Humberto Work Phone: Start: 07-05-2024 Ct abdomen & pelvis w/contrast material Verónica Pierce PA-C Work Phone: Start: 07-05-2024 Us abdominal real ti me w/image documentation Virgilio Almanza MD Work Phone: Start: 07-05-2024 Iadna-dna/rna gi pth gn multiplex probe tq 12-25 Virgilio Almanza MD Work Phone: Start: 07-05-2024 Inf agent det nuclei c acid clostridium amp probe Verónica SHAH-C Work Phone: Start: 07-05-2024 Basic metabolic pane l calcium total Virgilio Almanza MD Work Phone: Start: 07-04-2024 Assay of lactate Ashlye Bell MD Work Phone: Start: 07-04-2024 Ct head/brain w/o co ntrast material Ashley Bell MD Work Phone: Start: 07-04-2024 Radiologic exam ches t single view Ashley Bell MD Work Phone: Start: 07-04-2024 Ecg routine ecg w/le ast 12 lds trcg only w/o i&r Ashley Bell MD Work Phone: Start: 07-04-2024 SARS-COV-2, FLU A/B, AND RSV COMBO Ashley Bell MD Work Phone: Start: 07-04-2024 Blood gases any comb ination ph pco2 po2 co2 hco3 Ashley Bell MD Work Phone: Start: 07-04-2024 Comprehensive metabo lic panel Ashley Bell MD Work Phone: Start: 07-04-2024 Drug test def 1-7 classes Ashley Bell MD Work Phone: Start: 04-30-2024 Glucose quantitative blood xcpt reagent strip Ced Koenig MD Work Phone: Start: 04-30-2024 Glucose quantitative blood xcpt reagent strip Ced Koenig MD Work Phone: Start: 04-29-2024 Glucose quantitative blood xcpt reagent strip Ced Koenig MD Work Phone: Start: 04-29-2024 Glucose quantitative blood xcpt reagent strip Ced Koenig MD Work Phone: Start: 04-29-2024 Glucose quantitative blood xcpt reagent strip Ced Koenig MD Work Phone: Start: 04-29-2024 Glucose quantitative blood xcpt reagent strip Ced Koenig MD Work Phone: Start: 04-28-2024 Glucose quantitative blood xcpt reagent strip Ced Koenig MD Work Phone: Start: 04-28-2024 Glucose quantitative blood xcpt reagent strip Ced Koenig MD Work Phone: Start: 04-28-2024 Glucose quantitative blood xcpt reagent strip Ced Koenig MD Work Phone: Start: 04-27-2024 Glucose quantitative blood xcpt reagent strip Ced Koenig MD Work Phone: Start: 04-27-2024 Glucose quantitative blood xcpt reagent strip Ced Koenig MD Work Phone: Start: 04-27-2024 Glucose quantitative blood xcpt reagent strip Ced Koenig MD Work Phone: Start: 04-27-2024 Glucose quantitative blood xcpt reagent strip Ced Koenig MD Work Phone: Start: 04-27-2024 Blood count complete auto&auto difrntl wbc Reid Ilodi DO Work Phone: Start: 04-27-2024 Comprehensive metabo lic panel Ced Koenig MD Work Phone: Start: 04-26-2024 Glucose quantitative blood xcpt reagent strip Ced Koenig MD Work Phone: Start: 04-26-2024 Glucose quantitative blood xcpt reagent strip Ced Koenig MD Work Phone: Start: 04-26-2024 Blood count complete auto&auto difrntl wbc Reid Fu DO Work Phone: Start: 04-26-2024 Glucose quantitative blood xcpt reagent strip Ced Koenig MD Work Phone: Start: 04-26-2024 Glucose quantitative blood xcpt reagent strip Ced Koenig MD Work Phone: Start: 04-25-2024 Glucose quantitative blood xcpt reagent strip Reid Fu DO Work Phone: Start: 04-25-2024 Glucose quantitative blood xcpt reagent strip Reid Fu DO Work Phone: Start: 04-25-2024 Glucose quantitative blood xcpt reagent strip Reid Fu DO Work Phone: Start: 04-25-2024 Glucose quantitative blood xcpt reagent strip Reid Fu DO Work Phone: Start: 04-25-2024 Basic metabolic pane l calcium total Reid Fu DO Work Phone: Start: 04-25-2024 Manual Differential panel - Blood Reid Fu DO Work Phone: Start: 04-24-2024 Glucose quantitative blood xcpt reagent strip Reid Fu DO Work Phone: Start: 04-24-2024 Glucose quantitative blood xcpt reagent strip Reid Fu DO Work Phone: Start: 04-24-2024 Glucose quantitative blood xcpt reagent strip Reid Fu DO Work Phone: Start: 04-24-2024 Comprehensive metabo lic panel Kiel King MD Work Phone: Start: 04-24-2024 Glucose quantitative blood xcpt reagent strip Reid Ilodi DO Work Phone: Start: 04-23-2024 Glucose quantitative blood xcpt reagent strip Kiel King MD Work Phone: Start: 04-23-2024 Glucose quantitative blood xcpt reagent strip Kiel King MD Work Phone: Start: 04-23-2024 Glucose quantitative blood xcpt reagent strip Angi Astorga MD Work Phone: Start: 04-23-2024 Glucose quantitative blood xcpt reagent strip Angi Astorga MD Work Phone: Start: 04-23-2024 End: 04-23-2024 Comprehensive metabolic panel Kiel King MD Work Phone: Start: 04-23-2024 Thyrotropin [Units/v olume] in Serum or Plasma Ashley Bell MD Work Phone: Start: 04-22-2024 End: 04-22-2024 Assay of osmolality blood Kiel King MD Work Phone: Start: 04-22-2024 SARS-CoV-2 (COVID-19 ) Ag [Presence] in Respiratory specimen by Rapid immunoassay Kassandra Adkins MD Work Phone: Start: 04-22-2024 Urinalysis complete panel - Urine Kassandra Adkins MD Work Phone: Start: 04-22-2024 Urnls dip stick/tabl et rgnt auto w/o microscopy Kassandra Adkins MD Work Phone: Start: 04-22-2024 End: 04-22-2024 Comprehensive metabolic panel Kassandra Adkins MD Work Phone: Start: 04-22-2024 End: 04-22-2024 Drug test def 1-7 classes Kassandra lowry MD Work Phone: Start: 04-22-2024 Manual Differential panel - Blood Kassandra Adkins MD Work Phone: Start: 04-22-2024 Ecg routine ecg w/le ast 12 lds trcg only w/o i&r Kassandra Adkins MD Work Phone: Start: 04-04-2024 Radiologic exam ches t single view Júnior Lo MD Work Phone: Start: 04-04-2024 Blood gases any comb ination ph pco2 po2 co2 hco3 Júnior Lo MD Work Phone: Start: 04-04-2024 Ct cervical spine w/ o contrast material Júnior Lo MD Work Phone: Start: 04-04-2024 Ct head/brain w/o co ntrast material Júnior Lo MD Work Phone: Start: 04-04-2024 Ecg routine ecg w/le ast 12 lds trcg only w/o i&r Júnior Lo MD Work Phone: Start: 04-04-2024 End: 04-04-2024 Comprehensive metabolic panel Júnior Lo MD Work Phone: Start: 04-04-2024 Drug test def 1-7 classes Júnior Lo MD Work Phone: Start: 03-09-2024 Glucose quantitative blood xcpt reagent strip Nir Wilber Driscoll DO Work Phone: Start: 03-09-2024 VOLATILE PANEL,SERUM Krystle jesica Driscoll DO Work Phone: Start: 03-08-2024 Blood gases any comb ination ph pco2 po2 co2 hco3 Nir Wilber Driscoll DO Work Phone: Start: 03-08-2024 SARS-CoV-2 (COVID-19 ) Ag [Presence] in Respiratory specimen by Rapid immunoassay Marjan Reyes MD Work Phone: Start: 03-08-2024 Comprehensive metabo lic panel Marjan Reyes MD Work Phone: Start: 03-08-2024 End: 03-08-2024 Drug screen analgesics non-opioid 1 or 2 Nir Driscoll DO Work Phone: Start: 01-26-2024 Comprehensive metabo lic panel Radha Berry MD Work Phone: Start: 01-25-2024 Basic metabolic pane l calcium total Ethel Kuzmin DO Work Phone: Start: 01-24-2024 Basic metabolic pane l calcium total Ethel Kuzmin DO Work Phone: Start: 01-23-2024 Basic metabolic pane l calcium total Ethel Kuzmin DO Work Phone: Start: 01-22-2024 Inf agent det nuclei c acid clostridium amp probe Ethel Kuzmin DO Work Phone: Start: 01-22-2024 Comprehensive metabo lic panel Radha Berry MD Work Phone: Start: 01-21-2024 Dup-scan xtr veins c omplete bilateral study Ethel Kuzmin DO Work Phone: Start: 01-21-2024 Comprehensive metabo lic panel Radha Berry MD Work Phone: Start: 01-20-2024 Assay of free thyroxine Ethel Kuzmin DO Work Phone: Start: 01-20-2024 Comprehensive metabo lic panel Radha Berry MD Work Phone: Start: 01-19-2024 Ecg routine ecg w/le ast 12 lds trcg only w/o i&r Ethel Leezmin DO Work Phone: Start: 01-19-2024 Thyrotropin [Units/v olume] in Serum or Plasma Daniel Nateash DO Work Phone: Start: 01-19-2024 Comprehensive metabo lic panel Radha Berry MD Work Phone: Start: 01-18-2024 Comprehensive metabo lic panel Hayes Scott MD Work Phone: Start: 01-17-2024 Comprehensive metabo lic panel Hayes Scott MD Work Phone: Start: 01-16-2024 Comprehensive metabo lic panel Hayes Scott MD Work Phone: Start: 01-15-2024 SARS-CoV-2 (COVID-19 ) Ag [Presence] in Respiratory specimen by Rapid immunoassay Daniel Ewing DO Work Phone: Start: 01-15-2024 Urinalysis complete panel - Urine Daniel Ewing DO Work Phone: Start: 01-15-2024 Urnls dip stick/tabl et reagent auto microscopy Daniel Ewing DO Work Phone: Start: 01-15-2024 Comprehensive metabo lic panel Daniel Ewing DO Work Phone: Start: 01-15-2024 End: 01-15-2024 Drug test def 1-7 classes Daniel luna DO Work Phone: Start: 10-27-2023 Comprehensive metabo lic panel Kacie M Esterle DO Work Phone: Start: 10-26-2023 Comprehensive metabo lic panel Kacie M Esterle DO Work Phone: Start: 10-25-2023 Comprehensive metabo lic panel Kacie M Esterle DO Work Phone: Start: 10-24-2023 Comprehensive metabo lic panel Kacie M Esterle DO Work Phone: Start: 10-23-2023 Antibody identificat ion platelet antibodies Jose Ellsworth MD Work Phone: Start: 10-23-2023 Comprehensive metabo lic panel Kacie M Esterle DO Work Phone: Start: 10-22-2023 Assay of iron Kacie Misha Es terle DO Work Phone: Start: 10-22-2023 Comprehensive metabo lic panel Kaice M Esterle DO Work Phone: Start: 10-22-2023 Blood count complete automated Kacie Misha Esterle DO Work Phone: Start: 10-21-2023 Assay of lipase Kacie M Esterle DO Work Phone: Start: 10-21-2023 Blood count complete automated Kacie Benz DO Work Phone: Start: 10-21-2023 Manual differential performed [Presence] in Blood Kacie Cabral Esterkrzysztof DO Work Phone: Start: 10-20-2023 Comprehensive metabo lic panel Kacie Benz DO Work Phone: Start: 10-20-2023 Urinalysis complete panel - Urine Khurram Bob MD Work Phone: Start: 10-20-2023 Urnls dip stick/tabl et rgnt auto w/o microscopy Khurram Bbo MD Work Phone: Start: 10-20-2023 Basic metabolic pane l calcium total Khurram Bob MD Work Phone: Start: 10-20-2023 End: 10-20-2023 Drug test def 1-7 classes Khurram byrd MD Work Phone: Start: 10-20-2023 SARS-COV-2, FLU A/B, AND RSV COMBO Khurram Bob MD Work Phone: Start: 10-20-2023 Ecg routine ecg w/le ast 12 lds trcg only w/o i&r Khurram Bob MD Work Phone: Start: 10-20-2023 Radiologic exam ches t single view Khurram Bob MD Work Phone: Start: 07-05-2023 Basic metabolic pane l calcium total Kacie Cabral Esterle DO Work Phone: Start: 07-04-2023 Basic metabolic pane l calcium total Kacie Misha Esterle DO Work Phone: Start: 07-04-2023 Basic metabolic pane l calcium total Ophelia Ramos [employer]INCIPLE SOFTWARE ENGINEER - [employer]IMAL [employer]IST Work Phone: Start: 07-04-2023 Basic metabolic pane l calcium total Ophelia Ramos PRINCIPLE SOFTWARE ENGINEER - ANIMAL CONTROL SPECIALIST Work Phone: Start: 07-03-2023 Basic metabolic pane l calcium total Ophelia Ramos [facility] Work Phone: Start: 07-03-2023 Basic metabolic pane l calcium total Ophelia Ramos [facility] Work Phone: Start: 07-03-2023 Basic metabolic pane l calcium total Ophelia Ramos [facility] Work Phone: Start: 07-02-2023 End: 07-03-2023 Basic metabolic panel calcium total Ophelia Ramos [facility] Work Phone: Start: 07-02-2023 Basic metabolic pane l calcium total Kacie Cabral Esterle Work Phone: Start: 07-02-2023 Comprehensive metabo lic panel Ophelia Ramos [facility] Work Phone: Start: 07-01-2023 Basic metabolic pane l calcium total Ophelia Ramos [facility] Work Phone: Start: 07-01-2023 Basic metabolic pane l calcium total Ophelia Ramos [facility] Work Phone: Start: 07-01-2023 Basic metabolic pane l calcium total Ophelia Ramos [facility] Work Phone: Start: 07-01-2023 Comprehensive metabo lic panel Kacie Cabral Esterle DO Work Phone: Start: 06-30-2023 SARS-CoV-2 (COVID-19 ) Ag [Presence] in Respiratory specimen by Rapid immunoassay Steve Whitley MD Work Phone: Start: 06-30-2023 End: 06-30-2023 Comprehensive metabolic panel Steve Whitley MD Work Phone: Start: 06-30-2023 End: 06-30-2023 Drug test def 1-7 classes Steve gomez MD Work Phone: Start: 06-30-2023 Ct cervical spine w/ o contrast material Steve Whitley MD Work Phone: Start: 06-30-2023 Ct head/brain w/o co ntrast material Steve Whitley MD Work Phone: Start: 04-15-2023 Comprehensive metabo lic panel Laura Stevens MD Work Phone: Start: 04-14-2023 Comprehensive metabo lic panel Laura Stevens MD Work Phone: Start: 04-13-2023 Assay of magnesium Michelle Stevens MD Work Phone: Start: 04-13-2023 Comprehensive metabo lic panel Daja Johnson MD Work Phone: Start: 04-12-2023 Comprehensive metabo lic panel Daja Johnson MD Work Phone: Start: 04-11-2023 Comprehensive metabo lic panel Daja Johnson MD Work Phone: Start: 04-10-2023 Assay of osmolality urine Ophelia Sanchez [employer]INCIPLE SOFTWARE ENGINEER - ANIMAL CONTROL SPECIALIST Work Phone: Start: 04-10-2023 Urnls dip stick/tabl et rgnt auto w/o microscopy Ophelia Sanchez [employer]INCIPLE SOFTWARE ENGINEER - ANIMAL CONTROL SPECIALIST Work Phone: Start: 04-10-2023 Comprehensive metabo lic panel Rhiannon Barker MD Work Phone: Start: 04-10-2023 End: 04-10-2023 Assay of osmolality blood Rhiannon Barker MD Work Phone: Start: 04-10-2023 Thyrotropin [Units/v olume] in Serum or Plasma Richie Acosta MD Work Phone: Start: 04-09-2023 Iadna-dna/rna gi pth gn multiplex probe tq 10-12 Richie Acosta MD Work Phone: Start: 04-09-2023 Urnls dip stick/tabl et rgnt auto w/o microscopy Richie Acosta MD Work Phone: Start: 04-09-2023 Comprehensive metabo lic panel Richie Acosta MD Work Phone: Start: 04-09-2023 Drug test def 1-7 classes Richie Acosta MD Work Phone: Start: 04-09-2023 Ecg routine ecg w/le ast 12 lds trcg only w/o i&r Richie Acosta MD Work Phone: Start: 04-07-2023 Glucose quantitative blood xcpt reagent strip Maxwell Hinosn MD Work Phone: Start: 04-06-2023 Glucose quantitative blood xcpt reagent strip Maxwell Hinson MD Work Phone: Start: 04-06-2023 Drug screen quantita tive phenobarbital Alberto Perez MD Work Phone: Start: 04-04-2023 PANCREATIC ELASTASE, FECAL Inder Stein DO Work Phone: Start: 04-04-2023 Basic metabolic pane l calcium total Inder Stein DO Work Phone: Start: 04-04-2023 Hepatitis c antibody Ja rekacie Stein DO Work Phone: Start: 04-04-2023 End: 04-04-2023 Iaad ia hiv-1 ag w/hiv-1 & hiv-2 antbdy single Inder Delacruzva DO Work Phone: Start: 04-04-2023 Radiologic exam ches t single view Inder Stein DO Work Phone: Start: 04-02-2023 Blood gases any comb ination ph pco2 po2 co2 hco3 José Luis Bermudez MD Work Phone: Start: 04-02-2023 Radiologic exam comp lete acute abdomen series José Luis Bermudez MD Work Phone: Start: 04-02-2023 SARS-CoV-2 (COVID-19 ) Ag [Presence] in Respiratory specimen by Rapid immunoassay José Luis Bermudez MD Work Phone: Start: 04-02-2023 Drug tst prsmv instr mnt chem analyzers pr date José Luis Bermudez MD Work Phone: Start: 04-02-2023 Urinalysis complete panel - Urine José Luis Bermudez MD Work Phone: Start: 04-02-2023 Urnls dip stick/tabl et rgnt auto w/o microscopy José Luis Bermudez MD Work Phone: Start: 04-02-2023 Us abdominal real ti me w/image documentation José Luis Bermudez MD Work Phone: Start: 04-02-2023 Comprehensive metabo lic panel José Luis Bermudez MD Work Phone: Start: 04-02-2023 Drug test def 1-7 classes José Luis Bermudez MD Work Phone: Start: 04-02-2023 End: 04-02-2023 Thyrotropin [Units/volume] in Serum or Plasma Inder Morteza Stein DO Work Phone: Start: 02-14-2023 Basic metabolic pane l calcium total Ophelia Ramos PRINCIPLE SOFTWARE ENGINEER - [employer]IMAL CONTROL SPECIALIST Work Phone: Start: 02-13-2023 Sodium serum plasma or whole blood Ophelia Ramos PRINCIPLE SOFTWARE ENGINEER - ANIMAL CONTROL SPECIALIST Work Phone: Start: 02-13-2023 Sodium serum plasma or whole blood Ophelia Ramos PRINCIPLE SOFTWARE ENGINEER - ANIMAL CONTROL SPECIALIST Work Phone: Start: 02-12-2023 Basic metabolic pane l calcium total Kacie Benz DO Work Phone: Start: 02-12-2023 Sodium serum plasma or whole blood Ophelia Ramos PRINCIPLE SOFTWARE ENGINEER - ANIMAL CONTROL SPECIALIST Work Phone: Start: 02-12-2023 Sodium serum plasma or whole blood Ophelia Ramos PRINCIPLE SOFTWARE ENGINEER - ANIMAL CONTROL SPECIALIST Work Phone: Start: 02-12-2023 Us abdominal real ti me w/image documentation Ana Callaway MD Work Phone: Start: 02-12-2023 Comprehensive metabo lic panel Kacie Benz DO Work Phone: Start: 02-11-2023 Sodium serum plasma or whole blood Ophelia Ramos PRINCIPLE SOFTWARE ENGINEER [employer] Work Phone: Start: 02-11-2023 End: 02-11-2023 Sodium serum plasma or whole blood Ophelia Ramos PRINCIPLE SOFTWARE ENGINEER [employer] Work Phone: Start: 02-11-2023 Assay of osmolality urine Ophelia Ramos PRINCIPLE SOFTWARE ENGINEER [employer] Work Phone: Start: 02-11-2023 Urnls dip stick/tabl et rgnt auto w/o microscopy Ophelia Ramos PRINCIPLE SOFTWARE ENGINEER [employer] Work Phone: Start: 02-11-2023 Iadna-dna/rna gi pth gn multiplex probe tq 10-12 Kacie Benz DO Work Phone: Start: 02-11-2023 Inf agent det nuclei c acid clostridium amp probe Kacie Benz DO Work Phone: Start: 02-11-2023 End: 02-11-2023 Blood count complete auto&auto difrntl wbc Kacie Benz DO Work Phone: Start: 02-11-2023 Basic metabolic pane l calcium total Kacie Benz DO Work Phone: Start: 02-11-2023 Thyrotropin [Units/v olume] in Serum or Plasma Rubén Nesheim DO Work Phone: Start: 02-11-2023 Basic metabolic pane l calcium total Rubén G Nesheim DO Work Phone: Start: 02-10-2023 Urinalysis complete panel - Urine Rubén G Nesheim DO Work Phone: Start: 02-10-2023 Urnls dip stick/tabl et rgnt auto w/o microscopy Rubén Hoang DO Work Phone: Start: 02-10-2023 Comprehensive metabo lic panel Rubén Hoang DO Work Phone: Start: 01-05-2023 Glucose quantitative blood xcpt reagent strip Ruperto Fang MD Work Phone: Start: 01-05-2023 Glucose quantitative blood xcpt reagent strip Ruperto Fang MD Work Phone: Start: 12-25-2022 Basic metabolic pane l calcium total Kacie M Esterle DO Work Phone: Start: 12-24-2022 Glucose quantitative blood xcpt reagent strip Kacie M Esterle DO Work Phone: Start: 12-24-2022 Glucose quantitative blood xcpt reagent strip Kacie M Esterle DO Work Phone: Start: 12-24-2022 Glucose quantitative blood xcpt reagent strip Kacie M Esterle DO Work Phone: Start: 12-24-2022 Glucose quantitative blood xcpt reagent strip Kacie M Esterle DO Work Phone: Start: 12-24-2022 Comprehensive metabo lic panel Kacie M Esterle DO Work Phone: Start: 12-23-2022 Glucose quantitative blood xcpt reagent strip Kacie M Esterle DO Work Phone: Start: 12-23-2022 Glucose quantitative blood xcpt reagent strip Kacie M Esterle DO Work Phone: Start: 12-23-2022 Chloride urine Ophelia Okeefe PRINCIPLE SOFTWARE ENGINEER - ANIMAL CONTROL SPECIALIST Work Phone: Start: 12-23-2022 Urnls dip stick/tabl et rgnt auto w/o microscopy Ophelia Maldonado PRINCIPLE SOFTWARE ENGINEER - ANIMAL CONTROL SPECIALIST Work Phone: Start: 12-23-2022 Glucose quantitative blood xcpt reagent strip Kacie M Esterle DO Work Phone: Start: 12-23-2022 End: 12-23-2022 Glucose quantitative blood xcpt reagent strip Kacie M Esterle DO Work Phone: Start: 12-23-2022 Basic metabolic pane l calcium total Kacie Benz DO Work Phone: Start: 12-23-2022 Manual differential performed [Presence] in Blood Kacie Benz DO Work Phone: Start: 12-22-2022 Ct abdomen & pelvis w/o contrast material Beto Marin DO Work Phone: Start: 12-22-2022 Culture bacterial quanttative colony count urine Kacie Benz DO Work Phone: Start: 12-22-2022 Urinalysis complete panel - Urine Beto Marin DO Work Phone: Start: 12-22-2022 Comprehensive metabo lic panel Beto Marin DO Work Phone: Start: 07-08-2022 Us abdominal real ti me w/image limited Munira Staley PA-C Work Phone: Start: 06-06-2022 Gluc bld gluc mntr d ev cleared fda spec home use Marlyn Dash MD Work Phone: Start: 06-06-2022 Gastric emptying dorie ging study Ashlyn Atkinson MD Work Phone: Start: 06-06-2022 Gluc bld gluc mntr d ev cleared fda spec home use Marlyn Dash MD Work Phone: Start: 06-06-2022 Comprehensive metabo lic panel Marlyn Dash MD Work Phone: Start: 06-06-2022 Virus centrifuge enh ncd id imfluor stain ea Anna Stewart PRINCIPLE SOFTWARE ENGINEER - ANIMAL CONTROL SPECIALIST Work Phone: Start: 06-05-2022 Sodium serum plasma or whole blood Marlyn Dash MD Work Phone: Start: 06-05-2022 Gluc bld gluc mntr d ev cleared fda spec home use Marlyn Dash MD Work Phone: Start: 06-05-2022 Sodium serum plasma or whole blood Marlyn Dash MD Work Phone: Start: 06-05-2022 Gluc bld gluc mntr d ev cleared fda spec home use Daniel Ewing DO Work Phone: Start: 06-05-2022 [facility] ENDOSCOPY REPORT Phy josie Generic Start: 06-05-2022 End: 06-05-2022 Sodium serum plasma or whole blood Marlyn Dash MD Work Phone: Start: 06-05-2022 End: 06-05-2022 Comprehensive metabolic panel Marlyn Dash MD Work Phone: Start: 06-05-2022 Gluc bld gluc mntr d ev cleared fda spec home use Daniel Ewing DO Work Phone: Start: 06-04-2022 Sodium serum plasma or whole blood Marlyn Dash MD Work Phone: Start: 06-04-2022 Gluc bld gluc mntr d ev cleared fda spec home use Marlyn Dash MD Work Phone: Start: 06-04-2022 End: 06-04-2022 Sodium serum plasma or whole blood Marlyn Dash MD Work Phone: Start: 06-04-2022 End: 06-04-2022 Cyanocobalamin vitamin b-12 Jonny Cerdal PRINCIPLE SOFTWARE ENGINEER - ANIMAL CONTROL SPECIALIST Work Phone: Start: 06-04-2022 Hepatic function panel Jonny Raffel PRINCIPLE SOFTWARE ENGINEER - ANIMAL CONTROL SPECIALIST Work Phone: Start: 06-04-2022 Manual Differential panel - Blood Unknown Provider Result Start: 06-04-2022 ADD ON LAB TEST Maldonado Stewart PRINCIPLE SOFTWARE ENGINEER - ANIMAL CONTROL SPECIALIST Work Phone: Start: 06-04-2022 Hemoglobin glycosylated a1c Marlyn Dash MD Work Phone: Start: 06-04-2022 Iadna-dna/rna gi pth gn multiplex probe tq 12-25 Marlyn Dash MD Work Phone: Start: 06-04-2022 Inf agent det nuclei c acid clostridium amp probe Marlyn Dash MD Work Phone: Start: 06-04-2022 Gluc bld gluc mntr d ev cleared fda spec home use Daniel Faulknermbash DO Work Phone: Start: 06-04-2022 Comprehensive metabo lic panel Marlyn Dash MD Work Phone: Start: 06-04-2022 Thyrotropin [Units/v olume] in Serum or Plasma Ruperto Fang MD Work Phone: Start: 06-03-2022 Urnls dip stick/tabl et rgnt auto w/o microscopy Daniel A Gombash DO Work Phone: Start: 06-03-2022 Assay of ethanol Daniel Octavia Gombash DO Work Phone: Start: 06-03-2022 Comprehensive metabo lic panel Daniel Octavia Gombash DO Work Phone: Start: 06-03-2022 Ecg routine ecg w/le ast 12 lds w/i&r Daniel Faulknermbash DO Work Phone: Start: 05-15-2022 Ct abdomen & pelvis w/o contrast material Hany Ybarra MD Work Phone: Start: 05-15-2022 Basic metabolic pane l calcium total Hany Ybarra MD Work Phone: Start: 05-15-2022 Urnls dip stick/tabl et rgnt auto w/o microscopy Hany Ybarra MD Work Phone: Start: 06-24-2020 Ct abdomen & pelvis w/o contrast material Mack N Polce Work Phone: Start: 06-24-2020 Assay of lipase Mack N Polce Work Phone: Start: 06-24-2020 Blood count complete auto&auto difrntl wbc Mack N Polce Work Phone: Start: 06-24-2020 Comprehensive metabo lic panel Mack N Polce Work Phone: Start: 06-24-2020 Urnls dip stick/tabl et rgnt auto w/o microscopy Mack Palacios Work Phone: Start: 06-24-2020 Radiologic exam ches t single view Mack Tim Palacios Work Phone: Start: 07-19-2019 Ct abdomen w/contras t material Daniel Lulu London Work Phone: Start: 07-19-2019 Radex ribs unilatera l 2 views Daniel Lawson Wipster Work Phone: Start: 07-16-2019 Assay of urea nitrog en quantitative Daniel London Work Phone: Start: 07-16-2019 Creatinine blood Daniel Lawson Drummond Work Phone: Plan of Treatment Date Care Activity Detail Author Start: 08-26-2028 DTaP/Tdap/Td vaccine (2 - Td or Tdap) DTaP/Tdap/Td vaccine (2 - Td or Tdap) [facility] Start: 08-26-2028 DTaP/Tdap/Td Vaccines (2 - Td or Tdap) DTaP/Tdap/Td Vaccines (2 - Td or Tdap) [facility] Start: 07-29-2025 Diabetes: Estimated Glomerular Filtration Rate for Kidney Health Diabetes: Estimated Glomerular Filtration Rate for Kidney Health [facility] Start: 07-26-2025 Diabetes: Estimated Glomerular Filtration Rate for Kidney Health Diabetes: Estimated Glomerular Filtration Rate for Kidney Health [facility] Start: 07-22-2025 Hemoglobin A1c measurement Diabetes: Hemoglobin A1C [facility] Start: 07-16-2025 Diabetes: Estimated Glomerular Filtration Rate for Kidney Health Diabetes: Estimated Glomerular Filtration Rate for Kidney Health [facility] Start: 07-12-2025 Diabetes: Estimated Glomerular Filtration Rate for Kidney Health Diabetes: Estimated Glomerular Filtration Rate for Kidney Health [facility] Start: 07-11-2025 Lipid panel Lipid Panel [facility] Start: 07-11-2025 Thyroid stimulating hormone measurement TSH Level [facility] Start: 07-10-2025 Diabetes: Estimated Glomerular Filtration Rate for Kidney Health Diabetes: Estimated Glomerular Filtration Rate for Kidney Health [facility] Start: 07-07-2025 Diabetes: Estimated Glomerular Filtration Rate for Kidney Health Diabetes: Estimated Glomerular Filtration Rate for Kidney Health [facility] Start: 07-06-2025 Diabetes: Estimated Glomerular Filtration Rate for Kidney Health Diabetes: Estimated Glomerular Filtration Rate for Kidney Health [facility] Start: 07-05-2025 Diabetes: Estimated Glomerular Filtration Rate for Kidney Health Diabetes: Estimated Glomerular Filtration Rate for Kidney Health [facility] Start: 04-27-2025 Diabetes: Estimated Glomerular Filtration Rate for Kidney Health Diabetes: Estimated Glomerular Filtration Rate for Kidney Health [facility] Start: 04-23-2025 Hemoglobin A1c measurement Diabetes: Hemoglobin A1C [facility] Start: 04-23-2025 Thyroid stimulating hormone measurement TSH Level [facility] Start: 04-04-2025 Diabetes: Estimated Glomerular Filtration Rate for Kidney Health Diabetes: Estimated Glomerular Filtration Rate for Kidney Health [facility] Start: 03-08-2025 Diabetes: Estimated Glomerular Filtration Rate for Kidney Health Diabetes: Estimated Glomerular Filtration Rate for Kidney Health [facility] Start: 01-25-2025 Diabetes: Estimated Glomerular Filtration Rate for Kidney Health Diabetes: Estimated Glomerular Filtration Rate for Kidney Health [facility] Start: 01-21-2025 Depression Monitoring Depression Monitoring [facility] Start: 01-18-2025 Thyroid stimulating hormone measurement TSH Level [facility] Start: 01-07-2025 Depression Monitoring Depression Monitoring [facility] Start: 01-02-2025 Depression Monitoring Depression Monitoring [facility] Start: 10-26-2024 Depression Monitoring Depression Monitoring [facility] Start: 09-13-2024 End: 09-13-2024 Patient encounter procedure 09/13/2024 3:00 PM EST Office Visit [facility] [place] [address] [phone] Ana Armas PA-C [address] [id number] [facility] [place] Start: 07-23-2024 Depression Monitoring Depression Monitoring [facility] Start: 07-23-2024 Depresssion Monitoring Depresssion Monitoring [facility] Start: 06-19-2024 COVID-19 Vaccine ( season) COVID-19 Vaccine () [facility] Start: 06-19-2024 COVID-19 Vaccine () COVID-19 Vaccine () [facility] Start: 06-19-2024 Influenza vaccination [facility] Start: 06-06-2024 Depresssion Monitoring Depresssion Monitoring [facility] Start: 04-10-2024 Thyroid stimulating hormone measurement TSH Level [facility] Start: 04-02-2024 Hemoglobin A1c measurement Diabetes: Hemoglobin A1C [facility] Start: 04-02-2024 Thyroid stimulating hormone measurement TSH Level [facility] Start: 02-12-2024 Thyroid stimulating hormone measurement TSH Level [facility] Start: 01-21-2024 End: 01-21-2024 Patient encounter procedure 01/21/2024 5:30 PM EDT Appointment [facility] [address] [place] [address] Carmen Jeronimo MD [address] [place] [phone] [employer] [facility] Start: 01-19-2024 End: 01-19-2024 Patient encounter procedure 01/19/2024 5:30 PM EDT Appointment [facility] [address] [place] [address] Carmen Jeronimo MD [address] [place] [phone] [facility] Start: 01-18-2024 End: 01-18-2024 Patient encounter procedure 01/18/2024 5:30 PM EDT Appointment [facility] [address] [place] [address] Carmen Jeronimo MD [address] [place] [phone] [facility] Start: 01-14-2024 End: 01-14-2024 Patient encounter procedure 01/14/2024 5:30 PM EDT Appointment [facility] [address] [place] [phone] Carmen Jeronimo MD [address] [place] [address] [address] [place] [address] [facility] Start: 01-12-2024 End: 01-12-2024 Patient encounter procedure 01/12/2024 5:30 PM EDT Appointment [facility] [address] [place] [address] Carmen Jeronimo MD [address] [place] [phone] [facility] Start: 01-11-2024 End: 01-11-2024 Patient encounter procedure 01/11/2024 5:30 PM EDT Appointment [facility] [address] [place] [phone] Carmen Jeronimo MD [address] [place] [phone] [employer] [facility] Start: 01-07-2024 End: 01-07-2024 Patient encounter procedure 01/07/2024 5:30 PM EDT Appointment [facility] [address] [place] [phone] Carmen Jeronimo MD [address] [place] [phone] [employer] Start: 01-05-2024 End: 01-05-2024 Patient encounter procedure 01/05/2024 5:30 PM EDT Appointment [facility] [address] [place] [address] Carmen Jeronimo MD [address] [place] [phone] [facility] Start: 01-04-2024 End: 01-04-2024 Patient encounter procedure 01/04/2024 5:30 PM EDT Appointment [facility] [address] [facility] [place] [address] Carmen Jeronimo MD [address] [place] [phone] [facility] Start: 12-31-2023 End: 12-31-2023 Patient encounter procedure 12/31/2023 5:30 PM EDT Appointment [facility] [address] [facility] [place] [address] Carmen Jeronimo MD [address] [place] [phone] [facility] Start: 12-29-2023 End: 12-29-2023 Patient encounter procedure 12/29/2023 5:30 PM EDT Appointment [facility] [address] [place] [address], [place] [address] Carmen Jeronimo MD [address] [place] [phone] [employer] [facility] Start: 12-28-2023 End: 12-28-2023 Patient encounter procedure 12/28/2023 5:30 PM EDT Appointment [facility] [address] [facility] [place] [address] Carmen Jeronimo MD [address] [place] [phone] [facility] Start: 12-24-2023 End: 12-24-2023 Patient encounter procedure 12/24/2023 5:30 PM EST Appointment [facility] [address] [place] [address] Carmen Jeronimo MD [address] [place] [address] [address] [place] [address] [employer] [facility] Start: 12-22-2023 End: 12-22-2023 Patient encounter procedure 12/22/2023 5:30 PM EST Appointment [facility] [address] [place] [address] Carmen Jeronimo MD [address] [place] [address] [address] [place] [phone] [employer] [facility] Start: 12-21-2023 End: 12-21-2023 Patient encounter procedure 12/21/2023 5:30 PM EST Appointment [facility] [address] [place] [address] Carmen Jeronimo MD [address] [place] [address] [address] [place] [address] [employer] [facility] Start: 12-17-2023 End: 12-17-2023 Patient encounter procedure [facility] Start: 12-15-2023 End: 12-15-2023 Patient encounter procedure [facility] Start: 10-19-2023 Medicare Advantage Annual Wellness Visit Medicare Advantage Annual Wellness Visit [facility] Start: 10-03-2023 Depresssion Monitoring Depresssion Monitoring [facility] Start: 07-03-2023 Hemoglobin A1c measurement Diabetes: Hemoglobin A1C [facility] Start: 06-19-2023 COVID-19 Vaccine ( season) COVID-19 Vaccine () [facility] Start: 06-19-2023 Influenza vaccination [facility] Start: 06-06-2023 Screening for malignant neoplasm of colon [facility] Start: 06-04-2023 Hemoglobin A1c measurement A1C test (Diabetic or Prediabetic) [facility] Start: 06-04-2023 Thyroid stimulating hormone measurement TSH Level [employer] Start: 04-27-2023 End: 04-15-2024 Basic metabolic 1998 panel - Serum or Plasma Basic metabolic panel Lab Routine Hyponatremia Expected: 04/27/2023 (Approximate), Expires: 04/15/2024 [employer] Work Phone: Comment on above: Expected: 04/27/2023 (Approximate), Expi res: 04/15/2024 Start: 03-31-2023 Hemoglobin A1c measurement Diabetes: Hemoglobin A1C [facility] [employer] Start: 02-15-2023 End: 02-15-2024 Basic metabolic 1998 panel - Serum or Plasma Basic metabolic panel Lab Routine Hyponatremia Acute kidney injury (CMS/HCC) (HCC) Expected: 02/15/2023 (Approximate), Expires: 02/15/2024 [employer] Work Phone: Comment on above: Expected: 02/15/2023 (Approximate), Expi res: 02/15/2024 Start: 01-21-2023 End: 01-21-2023 Patient encounter procedure 01/21/2023 Office Visit General Surgery [facility] Start: 01-05-2023 End: 01-05-2023 Admission to same day surgery center 01/05/2023 Surgery Procedural Ruperto Fang MD [address] [place] [address] [address] [place] [address] LAPAROSCOPIC CHOLECYSTECTOMY, POSSIBLE OPEN [12801 (CPT )] [facility] Comment on above: LAPAROSCOPIC CHOLECYSTECTOMY, POSSIBLE O PEN [64337 (CPT )] Start: 01-05-2023 End: 01-05-2023 Anesthesia consultation 01/05/2023 Anesthesia Event Procedural Erika Lazar, PRINCIPLE SOFTWARE ENGINEER - ANIMAL CONTROL SPECIALIST [address] [place] [address] [facility] Start: 01-05-2023 End: 01-05-2023 Laparoscopy surg cholecystectomy LAPAROSCOPIC CHOLECYSTECTOMY Right upper quadrant pain Other specified diseases of gallbladder 01/05/2023 9:30 AM EDT [facility] Start: 01-05-2023 Subsequent hospital visit by physician 01/05/2023 Hospital Encounter Procedural Ruperto Fang MD [address] [place] [address] [address] [place] [address] [facility] Start: 12-29-2022 End: 12-29-2022 Admission to establishment [facility] Pre-Admit Testing Start: 12-11-2022 End: 12-11-2023 Hepatic function 2000 panel - Serum or Plasma Hepatic function panel Lab Routine Preop examination Expected: 12/11/2022 (Approximate), Expires: 12/11/2023 [facility] Work Phone: Comment on above: Expected: 12/11/2022 (Approximate), Expi res: 12/11/2023 Start: 09-04-2022 Hemoglobin A1c measurement Diabetes: Hemoglobin A1C [facility] Start: 06-25-2022 End: 08-25-2022 CBC W Auto Differential panel - Blood CBC + DIFF Lab Routine Abnormal CT scan, stomach Expected: 06/25/2022, Expires: 08/25/2022 [facility] Work Phone: Comment on above: Expected: 06/25/2022, Expires: 2 Start: 06-25-2022 End: 08-25-2022 Comprehensive metabolic 2000 panel - Serum or Plasma COMP METABOLIC PANEL Lab Routine Abnormal CT scan, stomach Expected: 06/25/2022, Expires: 08/25/2022 [facility] Work Phone: Comment on above: Expected: 06/25/2022, Expires: 2 Start: 06-25-2022 End: 08-25-2022 HEPATITIS A ANTIBODY, IGG HEPATITIS A ANTIBODY, IGG Lab Routine History of hepatitis C Expected: 06/25/2022, Expires: 08/25/2022 [facility] Work Phone: Comment on above: Expected: 06/25/2022, Expires: 2 Start: 06-25-2022 End: 08-25-2022 Hepatitis B virus core Ab [Presence] in Serum HEP B CORE AB TOTAL Lab Routine History of hepatitis C Expected: 06/25/2022, Expires: 08/25/2022 [facility] Work Phone: Comment on above: Expected: 06/25/2022, Expires: 2 Start: 06-25-2022 End: 08-25-2022 Hepatitis B virus surface Ab [Presence] in Serum by Immunoassay HEP B SURF AG SCRN Lab Routine History of hepatitis C Expected: 06/25/2022, Expires: 08/25/2022 [facility] Work Phone: Comment on above: Expected: 06/25/2022, Expires: 2 Start: 06-25-2022 End: 08-25-2022 Hepatitis B virus surface Ab [Units/volume] in Serum HEP B SURF AB QUANT Lab Routine History of hepatitis C Expected: 06/25/2022, Expires: 08/25/2022 [facility] Work Phone: Comment on above: Expected: 06/25/2022, Expires: 2 Start: 06-25-2022 End: 08-25-2022 Hepatitis C virus RNA [Units/volume] (viral load) in Serum or Plasma by SHANE with probe detection HCV QUANT RNA BY PCR Lab Routine History of hepatitis C Expected: 06/25/2022, Expires: 08/25/2022 [facility] Work Phone: Comment on above: Expected: 06/25/2022, Expires: 2 Start: 06-25-2022 End: 08-25-2022 Lipase [Enzymatic activity/volume] in Serum or Plasma LIPASE BLD Lab Routine Abnormal CT scan, stomach Expected: 06/25/2022, Expires: 08/25/2022 [facility] Work Phone: Comment on above: Expected: 06/25/2022, Expires: 2 Start: 06-25-2022 End: 08-25-2022 PT panel - Platelet poor plasma by Coagulation assay PROTHROMBIN TIME/PT Lab Routine History of hepatitis C Abnormal results of liver function studies Expected: 06/25/2022, Expires: 08/25/2022 [facility] Work Phone: Comment on above: Expected: 06/25/2022, Expires: 2 Start: 06-19-2022 Influenza vaccination [facility] Start: 07-16-2020 Creatinine measurement Creatinine monitoring [place], [place] Start: 07-16-2020 Creatinine monitoring Creatinine monitoring [place], [place] Start: 06-19-2020 Influenza vaccination Flu vaccine (#1) [place], [place] Start: 2020 HEPATITIS B (1 of 3 - Risk 3-dose series) HEPATITIS B (1 of 3 - Risk 3-dose series) [facility] Start: 2020 Hepatitis B Vaccines (1 of 3 - Risk 3-dose series) Hepatitis B Vaccines (1 of 3 - Risk 3-dose series) [facility] Start: 2020 RSV Immunization aged 60 or older (1 - 1-dose 60+ series) RSV Immunization aged 60 or older (1 - 1-dose 60+ series) [facility] Start: 2020 RSV Immunization for Adults (1 - Risk 60-74 years 1-dose series) RSV Immunization for Adults (1 - Risk 60-74 years 1-dose series) [facility] Start: 07-19-2019 Hospital Encounter 07/19/2019 Hospital Encounter Radiology Daniel London MD [address] [phone] [facility] Start: 06-19-2019 Influenza vaccination Flu vaccine (#1) [place] Start: 04-10-2019 Annual Wellness Visit (AWV) Annual Wellness Visit (AWV) [place] Start: 08-28-2018 Pneumococcal 0-64 years Vaccine (2 - PPSV23 or PCV20) Pneumococcal 0-64 years Vaccine (2 - PPSV23 or PCV20) [facility] Start: 08-28-2018 Pneumococcal Vaccine: Pediatrics (0 to 5 Years) and At-Risk Patients (6 to 64 Years) (2 - PPSV23 if available, else PCV20) Pneumococcal Vaccine: Pediatrics (0 to 5 Years) and At-Risk Patients (6 to 64 Years) (2 - PPSV23 if available, else PCV20) [facility] Start: 10-23-2017 Pneumococcal Vaccine: 50+ Years (2 of 2 - PPSV23) Pneumococcal Vaccine: 50+ Years (2 of 2 - PPSV23) [facility] Start: 10-23-2017 Pneumococcal Vaccine: Pediatrics (0 to 5 Years) and At-Risk Patients (6 to 64 Years) (2 - PPSV23 if available, else PCV20) Pneumococcal Vaccine: Pediatrics (0 to 5 Years) and At-Risk Patients (6 to 64 Years) (2 - PPSV23 if available, else PCV20) [facility] Start: 10-23-2017 Pneumococcal Vaccine: Pediatrics (0 to 5 Years) and At-Risk Patients (6 to 64 Years) (2 of 2 - PPSV23 or PCV20) Pneumococcal Vaccine: Pediatrics (0 to 5 Years) and At-Risk Patients (6 to 64 Years) (2 of 2 - PPSV23 or PCV20) [facility] Start: 09-06-2016 A1C test (Diabetic or Prediabetic) A1C test (Diabetic or Prediabetic) [place] Start: 09-06-2016 Creatinine monitoring Creatinine monitoring [place], [place] Start: 09-06-2016 HbA1c (Bld) [Mass fraction] A1C test (Diabetic or Prediabetic) [place] Start: 09-06-2016 Hemoglobin A1c measurement A1C test (Diabetic or Prediabetic) [facility] Start: 09-06-2016 Lipid panel [facility] Start: 09-06-2016 Lipid screen Lipid screen [place] Start: 09-06-2016 Potassium monitoring Potassium monitoring [place] Start: 02-03-2015 PROSTATE CANCER SCREENING DISCUSSION PROSTATE CANCER SCREENING DISCUSSION [facility] Start: 02-03-2010 Colon cancer screen colonoscopy Colon cancer screen colonoscopy [place] Start: 02-03-2010 Screening for malignant neoplasm of colon Colon cancer screen colonoscopy [place] Start: 02-03-2010 Shingles Vaccine (1 of 2) Shingles Vaccine (1 of 2) [facility] Start: 02-03-2010 SHINGRIX VACCINE (1 of 2) SHINGRIX VACCINE (1 of 2) [facility] Start: 02-03-2010 Zoster Vaccines (1 of 2) Zoster Vaccines (1 of 2) [facility] Start: 02-03-2005 COLOGUARD (FIT-DNA) COLOGUARD (FIT-DNA) [facility] Start: 02-03-2005 Colonoscopy COLONOSCOPY [facility] Start: 02-03-2005 COLORECTAL CANCER SCREENING COLORECTAL CANCER SCREENING [facility] Start: 02-03-[address] COLONOGRAPHY [facility] Start: 02-03-2005 FECAL OCCULT BLOOD FECAL OCCULT BLOOD [facility] Start: 02-03-2005 Screening for malignant neoplasm of colon [facility] Start: 02-03-2005 SIGMOIDOSCOPY SIGMOIDOSCOPY [facility] Start: 2000 Prostate specific antigen measurement Prostate Specific Antigen (PSA) Screening or Monitoring [facility] Start: 02-03-1979 DTaP/Tdap/Td vaccine (1 - Tdap) DTaP/Tdap/Td vaccine (1 - Tdap) [facility] Start: 02-03-1979 Hepatitis A Vaccines (1 of 2 - Risk 2-dose series) Hepatitis A Vaccines (1 of 2 - Risk 2-dose series) [facility] Start: 02-03-1979 Hepatitis B Vaccine (1 of 3 - Risk 3-dose series) Hepatitis B Vaccine (1 of 3 - Risk 3-dose series) [email or web address] Start: 02-03-1979 Urine microalbumin profile DTAP,TDAP,TD (1 - Tdap) [facility] Start: 02-03-1979 Urine screening for protein Diabetes: Urine Protein Screening [facility] Start: 02-03-1978 ANNUAL PCP TEAM CHRONIC DISEASE VISIT ANNUAL PCP TEAM CHRONIC DISEASE VISIT [facility] Start: 02-03-1978 BP CONTROLLED (<130/80) BP CONTROLLED (<130/80) [facility] in Start: 02-03-1978 Diabetes: Urine Albumin-Creatinine Ratio for [facility]ney Health Diabetes: Urine Albumin-Creatinine Ratio for Kidney Health [facility] Start: 02-03-1978 Diabetic microalbuminuria test Diabetic microalbuminuria test [facility] Start: 02-03-1978 Diabetic retinal exam Diabetic retinal exam [facility] Start: 02-03-1978 Hepatitis B surface antibody level LDL CHOLESTEROL [facility] Start: 02-03-1978 Hepatitis C screening Hepatitis C screen [facility] Start: 02-03-1978 HIV SCREENING HIV SCREENING [facility] Start: 02-03-1978 SPIROMETRY SPIROMETRY [facility] Start: 02-03-1978 Urine screening for protein Diabetic microalbuminuria test [facility] Start: 02-03-1975 HIV screen HIV screen [place], [place] Start: 02-03-1975 HIV screening HIV screen [facility] Start: 1972 Adult depression screening assessment DEPRESSION SCREENING [facility] Start: 1972 Depression Screen Depression Screen [facility] Start: 1972 Depresssion Monitoring Depresssion Monitoring [facility] Start: 02-03-1970 [object Object] Diabetic foot exam [facility] Start: 02-03-1970 Diabetic foot examination [facility] Start: 02-03-1970 Diabetic retinal exam Diabetic retinal exam [place], [place] Start: 02-03-1970 Glaucoma screening Diabetes: Retinopathy Screening [facility] Start: 02-03-1970 Hepatitis B screening URINE ALBUMIN:CREATININE RATIO [facility] Start: 02-03-1970 Hepatitis C antibody, confirmatory test DILATED RETINAL EXAM [facility] Start: 02-03-1970 Preventive dental service Diabetes: Dental Exam [facility] Start: 02-03-1966 PNEUMOCOCCAL (1 - PCV) PNEUMOCOCCAL (1 - PCV) [facility] Start: 02-03-1966 Pneumococcal 0-64 years Vaccine (1 - PCV) Pneumococcal 0-64 years Vaccine (1 - PCV) [facility] Start: 02-03-1966 Pneumococcal 0-64 years Vaccine (1 of 1 - PPSV23) Pneumococcal 0-64 years Vaccine (1 of 1 - PPSV23) [place] Start: 02-03-1965 Hemoglobin A1c/Hemoglobin.total in Blood HBA1C [facility] Start: 02-03-1961 HEPATITIS A (1 of 2 - Risk 2-dose series) HEPATITIS A (1 of 2 - Risk 2-dose series) [facility] Start: 02-03-1961 Hepatitis A vaccine (1 of 2 - Risk 2-dose series) Hepatitis A vaccine (1 of 2 - Risk 2-dose series) [facility] Start: 02-03-1961 Hepatitis A Vaccines (1 of 2 - Risk 2-dose series) Hepatitis A Vaccines (1 of 2 - Risk 2-dose series) [facility] Start: 02-03-1961 MMR Vaccines (1 of 1 - Standard series) MMR Vaccines (1 of 1 - Standard series) [facility] Start: 1960 COVID-19 Vaccine (#1) COVID-19 Vaccine (#1) [facility] Start: 1960 Annual wellness visit Medicare Initial Physical (IPPE) [facility] Start: 1960 Annual Wellness Visit (AWV) Annual Wellness Visit (AWV) [facility] Start: 1960 Hepatitis C screen Hepatitis C screen [place], [place] Start: 1960 Hepatitis C screening Hepatitis C screen [place] Start: 1960 HIV screening HIV Screening [facility] Start: 1960 Lipid panel Lipid Panel [facility] Start: 1960 Medicare Advantage Annual Wellness Visit (AWV) Medicare Advantage Annual Wellness Visit (AWV) [facility] Start: 1960 Medicare Annual Wellness (AWV) Medicare Annual Wellness (AWV) [facility] Start: 1960 Screening for malignant neoplasm of colon [facility] End: 06-25-2020 Add On Lab Test Add On Lab Test Lab Routine One Time for 1 Occurrences starting 06/25/2020 until 06/25/2020 [place] Comment on above: One Time for 1 Occurrences starting 04/2020 until 06/25/2020 End: 03-08-2024 Blood gases, venous measurement Blood gas, venous (ACH and SBH) Lab STAT Once (Lab) for 1 Occurrences starting 03/08/2024 until 03/08/2024 [facility] Work Phone: Comment on above: Once (Lab) for 1 Occurrences starting until 03/08/2024 End: 06-04-2022 C. difficile toxin Molecular C. difficile toxin Molecular Microbiology Add-On 48 HRS for 47 Hours starting 06/04/2022 until 06/04/2022 [facility] Comment on above: 48 HRS for 47 Hours starting 05/19 until 06/04/2022 End: 06-24-2020 C. Trachomatis / N. Gonorrhoeae, DNA Probe C. Trachomatis / N. Gonorrhoeae, DNA Probe Microbiology Routine One Time for 1 Occurrences starting 06/24/2020 until 06/24/2020 [place] Comment on above: One Time for 1 Occurrences starting 03/2020 until 06/24/2020 C. Trachomatis / N. Gonorrhoeae, DNA Probe C. Trachomatis / N. Gonorrhoeae, DNA Probe Microbiology STAT 06/24/2020 11:30 PM EDT [facility] [place] End: 07-05-2024 Calprotectin (BKR QUEST) [facility] [employer] Work Phone: Comment on above: Once (Lab) for 1 Occurrences starting until 07/05/2024 Clostridioides diffi cile toxin genes [Presence] in Stool by SHANE with probe detection C. DIFFICILE PCR Lab Routine Diarrhea, unspecified type Ordered: 06/25/2022 [facility] Work Phone: Comment on above: Ordered: 06/25/2022 End: 06-25-2023 EGD DIAGNOSTIC EGD DIAGNOSTIC Endoscopy Routine Abnormal CT scan, stomach History of esophageal varices 1 Occurrences starting 06/25/2022 until 06/25/2023 [facility] Work Phone: Comment on above: 1 Occurrences starting 06/25/2022 until 06/25/2023 ENTERIC BACTERIAL PA LEVON BY PCR ENTERIC BACTERIAL PANEL BY PCR Lab Routine Diarrhea, unspecified type Ordered: 06/25/2022 [facility] Work Phone: Comment on above: Ordered: 06/25/2022 Giardia lamblia+Cryptosporidium sp Ag [Presence] in Stool by Immunoassay CRYPTOSPORIDIUM AND GIARDIA ANTIGENS BY EIA Microbiology Routine Diarrhea, unspecified type Ordered: 06/25/2022 [facility] Work Phone: Comment on above: Ordered: 06/25/2022 Glucose [Mass/volume ] in Serum or Plasma POCT GLUCOSE Point of Care Testing Routine 4X Daily (AC & HS) until discontinued starting 06/04/2022 [facility] Work Phone: Comment on above: 4X Daily (AC & HS) until discontinued st arting 06/04/2022 Glucose [Mass/volume ] in Serum or Plasma [employer] Work Phone: Comment on above: 4X Daily (AC & HS) until discontinued st arting 06/04/2022 As Needed until disc ontinued starting 06/04/2022 End: 04-05-2023 Hepatitis C virus RNA panel (viral load) in Serum or Plasma by SHANE with probe detection Hepatitis C viral load Lab Routine Morning draw (Lab) for 1 Occurrences starting 04/05/2023 until 04/05/2023 [facility] [employer] [facility] Work Phone: Comment on above: Morning draw (Lab) for 1 Occurrences sta rting 04/05/2023 until 04/05/2023 Hepatitis C virus RN A panel (viral load) in Serum or Plasma by SHANE with probe detection Hepatitis C viral load Lab Routine 04/05/2023 6:15 AM EDT [facility] [employer] Oxygen therapy [[facility] Data Set] Initiate Oxygen Therapy Protocol Respiratory Care Routine As Needed until discontinued starting 06/04/2022 [employer] Work Phone: Comment on above: As Needed until discontinued starting End: 06-05-2022 Reticulocytes Reticulocytes Lab Add-On One Time for 1 Occurrences starting 06/05/2022 until 06/05/2022 [employer] Work Phone: Comment on above: One Time for 1 Occurrences starting 05/19 until 06/05/2022 End: 06-05-2022 Surgical Pathology Surgical Pathology Lab Routine Once for 1 Occurrences starting 06/05/2022 until 06/05/2022 [employer] Work Phone: Comment on above: Once for 1 Occurrences starting 06/05/20 until 06/05/2022 Surgical Pathology Surgical Path ology Lab Routine 06/05/2022 12:00 AM EDT [facility] Work Phone: Tissue exam [facility] [employer] Work Phone: Comment on above: Release Upon Ordering for 1 Occurrences starting 01/05/2023 End: 07-25-2023 Us abdominal real time w/image limited US ABD RT UPPER QUADRANT Radiology Routine History of hepatitis C 1 Occurrences starting 06/25/2022 until 07/25/2023 [facility] Work Phone: Comment on above: 1 Occurrences starting 06/25/2022 until 07/25/2023 Immunizations Immunization Date Immunization Notes Care Provider Venu barrios 07-01-2023 influenza vac subuni t quadrivalent (Flucelvax) injection 0.5 mL Steve Whitley MD Work Phone: [facility] [employer] 07-17-2020 influenza, injectabl e, quadrivalent, contains preservative Beryl Friedt PA-C Work Phone: [facility] [employer] 07-17-2020 influenza virus vaccine, unspecified formulation Beryl Friedt PA-C Work Phone: [facility] [employer] 08-16-2019 influenza, injectabl e, quadrivalent, contains preservative Beryl Friedt PA-C Work Phone: [facility] [employer] 08-26-2018 influenza, injectabl e, quadrivalent, contains preservative Beryl Friedt PA-C Work Phone: [facility] [employer] 08-26-2018 tetanus toxoid, reduced diphtheria toxoid, and acellular pertussis vaccine, adsorbed Beryl Friedt PA-C Work Phone: [facility] [employer] 08-28-2017 influenza, injectabl e, quadrivalent, contains preservative Beryl Friedt PA-C Work Phone: [facility] [employer] 08-28-2017 pneumococcal conjuga te vaccine, 13 valent Beryl Friedt PA-C Work Phone: [facility] 07-18-2016 influenza, seasonal, injectable Munira Staley PA-C Work Phone: [facility] 07-11-2016 influenza, injectabl e, quadrivalent, contains preservative Beryl Friedt PA-C Work Phone: [facility] [employer] 08-17-2015 influenza, injectabl e, quadrivalent, contains preservative Beryl Friedt PA-C Work Phone: [facility] [employer] NEGATED: Highlighted row has not occurred!07-06-2024 influenza, injectable, madin candido canine kidney, preservative free Verónica Pierce PA-C Work Phone: [facility] [employer] Comment on above: Deferred: Other - Pt states "not right now" NEGATED: Highlighted row has not occurred!12-23-2022 influenza, injectable, quadrivalent, preservative free Beryl Friedt PA-C Work Phone: [facility] Comment on above: Deferred: Patient Re fused Payers Date Payer Category Payer Self-pay 2023 Medicare HMO ANTHEM DUAL ADVA NTAGE [id number] 2023 Medicare [id number] 2018 Medicaid MEDICAID [facility] DEPT OF JOB xxxxxxxxxxxx 2018-Present [phone] [address] [place] [address] xxxxxxxxxxxx [id number] 2017 Medicaid [id number] 2017 Medicaid [id number] 2016 Medicare MEDICARE MEDICAR E PART A AND B xxxxxxxxxx 2016-Present [phone] [place] [address] xxxxxxxxxx [id number] 2016 Medicare MEDICARE MEDICAR E PART A AND B [id number] 2016-Present [phone] [place] [address] [id number] 2007 Medicare [id number] 1960 Unknown [id number] 1960 Unknown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 intramuscularly once a month dicyclomine (BENTYL) 20 mg, Oral, 3 times daily famotidine (PEPCID) 20 mg, Oral, 2 times daily fluticasone (Flonase) 50 MCG/ACT nasal spray 1 spray, Each Nostril, Daily PRN gabapentin (Neurontin) 100 MG capsule TAKE TWO CAPSULES BY MOUTH 3 TIMES DAILY hydrOXYzine pamoate (VISTARIL) 25 mg, Oral, Every 8 hours PRN ipratropium-albuterol (Duo-Neb) 0.5-2.5 mg/3 mL nebulizer solution Every 6 hours levothyroxine (Synthroid, Levoxyl) 50 MCG tablet TAKE 1 TABLET BY MOUTH DAILY loperamide (IMODIUM) 2 mg, Oral, Every morning losartan (COZAAR) 100 mg, Oral, Daily magnesium chloride 64 mg, Oral, Daily with breakfast mirtazapine (REMERON) 15 mg, Oral, Nightly nicotine polacrilex (COMMIT) 2 mg, Mouth/Throat, Every 2 hour PRN potassium chloride CR (Klor-Con) 10 MEQ ER tablet 10 mEq, Oral, Every morning sertraline (ZOLOFT) 50 mg, Oral, Daily spironolactone (ALDACTONE) 25 mg, Oral, Every morning tamsulosin (FLOMAX) 0.4 mg, Oral, Daily tiZANidine (ZANAFLEX) 4 mg, Oral, Every 6 hours PRN Allergies: Allergies Allergen Reactions Allopurinol Other Breaks out in blisters Codeine Nausea Only Penicillin G Swelling History: Past Medical and Psychiatric History: 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 Nausea and vomiting 12/22/22-12/26/22 admitted at [facility] Pain management Sleep apnea noncompliant with device Family Psychiatric and Medical History: Family History Problem Relation Name Age of Onset Depression Mother Depression Maternal Grandmother PAST SURGICAL HISTORY Past Surgical History: Procedure Laterality Date BACK SURGERY x 2 CHOLECYSTECTOMY LAMINECTOMY LAP,CHOLECYSTECTOMY (HISTORICAL) N/A 01/05/2023 WISDOM TOOTH EXTRACTION Social History: Social Connections: Socially Isolated (12/07/2023) Social Connection and Isolation Panel [NHANES] Frequency of Communication with Friends and Family: Never Frequency of Social Gatherings with Friends and Family: Never Attends Amish Services: Never Active Member of Clubs or Organizations: No Attends Club or Organization Meetings: Not on file Marital Status: Living with partner Social Determinants of Health Tobacco Use: High Risk (04/29/2024) Patient History Smoking Tobacco Use: Every Day Smokeless Tobacco Use: Former Passive Exposure: Not on file Alcohol Use: Alcohol Misuse (07/05/2024) AUDIT-C Frequency of Alcohol Consumption: 4 or more times a week Average Number of Drinks: 7 to 9 Frequency of Binge Drinking: Daily or almost daily Financial Resource Strain: High Risk (01/15/2024) Overall Financial Resource Strain (CARDIA) Difficulty of Paying Living Expenses: Hard Food Insecurity: Food Insecurity Present (07/05/2024) Hunger Vital Sign Worried About Running Out of Food in the Last Year: Sometimes true Ran Out of Food in the Last Year: Sometimes true Transportation Needs: No Transportation Needs (07/05/2024) PRAPARE - Transportation Lack of Transportation (Medical): No Lack of Transportation (Non-Medical): No Physical Activity: Unknown (01/15/2024) Exercise Vital Sign Days of Exercise per Week: 0 days Minutes of Exercise per Session: Not on file Recent Concern: Physical Activity - Inactive (01/15/2024) Exercise Vital Sign Days of Exercise per Week: 0 days Minutes of Exercise per Session: 0 min Stress: No Stress Concern Present (04/03/2023) [facility] [place] [facility] [employer] [facility] - Occupational Stress Questionnaire Feeling of Stress : Not at all Social Connections: Socially Isolated (12/07/2023) Social Connection and Isolation Panel [NHANES] Frequency of Communication with Friends and Family: Never Frequency of Social Gatherings with Friends and Family: Never Attends Amish Services: Never Active Member of Clubs or Organizations: No Attends Club or Organization Meetings: Not on file Marital Status: Living with partner Intimate Partner Violence: Not At Risk (07/05/2024) Humiliation, Afraid, Rape, and Kick questionnaire Fear of Current or Ex-Partner: No Emotionally Abused: No Physically Abused: No Sexually Abused: No Depression: At risk (07/05/2024) PHQ-2 PHQ-2 Score: 6 Housing Stability: Low Risk (07/05/2024) Housing Stability Vital Sign Unable to Pay for Housing in the Last Year: No Number of Times Moved in the Last Year: 1 Homeless in the Last Year: No Utilities: Not At Risk (07/05/2024) [facility] Utilities Threatened with loss of utilities: No Health Literacy: Not on file OBJECTIVE: PHYSICAL EXAM: Vitals: Vitals: 07/07/24 0555 07/07/24 0741 07/07/24 1645 07/07/24 2124 BP: 122/77 133/93 151/94 116/63 BP Location: Left arm Right arm Patient Position: Lying Lying Pulse: 95 106 115 99 Resp: Temp: 36.3 C (97.4 F) 36.7 C (98 F) TempSrc: Temporal Temporal SpO2: 100% 100% 99% Weight: Height: Physical Exam: Physical Exam Vitals and nursing note reviewed. Exam conducted with a employment representative present. Constitutional: General: He is not in acute distress. Appearance: Normal appearance. He is not ill-appearing. HENT: Head: Normocephalic and atraumatic. Cardiovascular: Rate and Rhythm: Normal rate. Pulmonary: Effort: Pulmonary effort is normal. No respiratory distress. Skin: General: Skin is warm and dry. Neurological: Mental Status: He is alert and oriented to person, place, and time. Psychiatric: Attention and Perception: Attention and perception normal. Mood and Affect: Mood and affect normal. Speech: Speech normal. Behavior: Behavior normal. Behavior is cooperative. Thought Content: Thought content normal. Thought content does not include suicidal ideation. Thought content does not include suicidal plan. Cognition and Memory: Cognition and memory normal. Judgment: Judgment normal. Labs: I reviewed pertinent laboratory results, radiographic results, Most recent EKG, and Other Clinical Notes at the time of today's encounter. Recent Results (from the past 72 hour(s)) CBC Collection Time: 07/06/24 10:41 AM Result Value Ref Range Auto WBC 4.5 3.6 - 10.7 10*3/uL RBC 3.67 (L) 4.40 - 5.90 10*6/uL Hemoglobin 11.1 (L) 13.0 - 18.0 g/dL Hematocrit 33.1 (L) 40.0 - 52.0 % MCV 90.2 77.0 - 99.0 fL MCH 30.2 26.0 - 34.0 pg MCHC 33.5 30.5 - 36.0 % RDW 13.3 11.5 - 15.0 % Platelets 192 140 - 440 10*3/uL MPV 9.2 9.0 - 12.7 fL Basic metabolic panel Collection Time: 07/06/24 10:41 AM Result Value Ref Range SODIUM 135 135 - 145 mmol/L POTASSIUM 3.4 (L) 3.5 - 5.1 mmol/L CHLORIDE 108 (H) 98 - 107 mmol/L CARBON DIOXIDE 16 (L) 22 - 30 mmol/L UREA NITROGEN 13 9 - 20 mg/dL CREATININE 0.93 0.66 - 1.25 mg/dL GLUCOSE 184 (H) 70 - 100 mg/dL CALCIUM 8.9 8.4 - 10.4 mg/dL ANION GAP 10 3 - 13 mmol/L eGFR >90.0 >60.0 mL/min/1.73m*2 Magnesium Collection Time: 07/06/24 10:41 AM Result Value Ref Range MAGNESIUM 1.4 (L) 1.6 - 2.3 mg/dL CBC Collection Time: 07/07/24 3:30 AM Result Value Ref Range Auto WBC 5.3 3.6 - 10.7 10*3/uL RBC 3.09 (L) 4.40 - 5.90 10*6/uL Hemoglobin 9.5 (L) 13.0 - 18.0 g/dL Hematocrit 27.4 (L) 40.0 - 52.0 % MCV 88.7 77.0 - 99.0 fL MCH 30.7 26.0 - 34.0 pg MCHC 34.7 30.5 - 36.0 % RDW 13.6 11.5 - 15.0 % Platelets 176 140 - 440 10*3/uL MPV 9.7 9.0 - 12.7 fL Basic metabolic panel Collection Time: 07/07/24 3:30 AM Result Value Ref Range SODIUM 134 (L) 135 - 145 mmol/L POTASSIUM 3.9 3.5 - 5.1 mmol/L CHLORIDE 111 (H) 98 - 107 mmol/L CARBON DIOXIDE 17 (L) 22 - 30 mmol/L UREA NITROGEN 9 9 - 20 mg/dL CREATININE 0.86 0.66 - 1.25 mg/dL GLUCOSE 131 (H) 70 - 100 mg/dL CALCIUM 8.5 8.4 - 10.4 mg/dL ANION GAP 5 3 - 13 mmol/L eGFR >90.0 >60.0 mL/min/1.73m*2 CBC Collection Time: 07/08/24 3:28 AM Result Value Ref Range Auto WBC 5.4 3.6 - 10.7 10*3/uL RBC 3.25 (L) 4.40 - 5.90 10*6/uL Hemoglobin 10.0 (L) 13.0 - 18.0 g/dL Hematocrit 29.1 (L) 40.0 - 52.0 % MCV 89.5 77.0 - 99.0 fL MCH 30.8 26.0 - 34.0 pg MCHC 34.4 30.5 - 36.0 % RDW 13.8 11.5 - 15.0 % Platelets 172 140 - 440 10*3/uL MPV 9.5 9.0 - 12.7 fL Basic metabolic panel Collection Time: 07/08/24 3:28 AM Result Value Ref Range SODIUM 135 135 - 145 mmol/L POTASSIUM 4.0 3.5 - 5.1 mmol/L CHLORIDE 108 (H) 98 - 107 mmol/L CARBON DIOXIDE 22 22 - 30 mmol/L UREA NITROGEN 8 (L) 9 - 20 mg/dL CREATININE 0.90 0.66 - 1.25 mg/dL GLUCOSE 97 70 - 100 mg/dL CALCIUM 8.9 8.4 - 10.4 mg/dL ANION GAP 5 3 - 13 mmol/L eGFR >90.0 >60.0 mL/min/1.73m*2 Mental Status Exam: MSE: Level of consciousness: Alert Orientation: Person, Place, and Year Appearance: Appropriate ; appears stated age Gait: Did Not Observe Behavior: Cooperative Eye contact: good Motor Activity: WNL Speech: WNL Mood: Euthymic Affect: Mood Congruent Thought Process: Organized Thought Content: Denies Suicidal/Homicidal Ideation, Intent, or Plan, Hopeful, and Future Oriented Thought Perception: WNL Fund of Knowledge: appropriate for education level Attention/Concentration: WNL Cognition: WNL Memory: WNL Insight: Fair Judgement: Fair ASSESSMENT: Patient Active Problem List Diagnosis Osteoarthritis of spine with radiculopathy, lumbar region Essential hypertension Hyponatremia Diabetes (HCC) Hypovolemia Cirrhosis (HCC) Chronic alcoholic hepatitis Asthma Severe malnutrition (CMS/HCC) (HCC) Thyroid disease SHAYLA (obstructive sleep apnea) Lumbar stenosis Postural dizziness with presyncope HLD (hyperlipidemia) Hepatitis Intractable nausea and vomiting Chronic pain syndrome Complication of surgical procedure Intercostal pain Low back pain Mild recurrent major depression (HCC) Myalgia Right hip pain Shoulder joint pain Acute kidney injury (HCC) DENNYS (acute kidney injury) (HCC) Gallbladder sludge RUQ pain Acute on chronic cholecystitis 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) Severe alcohol use disorder (HCC) Alcohol withdrawal syndrome with complication (HCC) Alcohol abuse Recurrent falls Alcohol induced acute pancreatitis without necrosis or infection Repeated falls Moderate malnutrition (CMS/HCC) (HCC) Alcohol withdrawal syndrome without complication (HCC) Other pancytopenia (CMS/HCC) (HCC) Alcohol use disorder Metabolic acidosis, increased anion gap 1. Metabolic acidosis, increased anion gap 2. Ketosis (HCC) 3. Alcohol use 4. Hypokalemia 5. Hypomagnesemia Major depressive disorder, recurrent, severe, without psychotic features PLAN: RECOMMENDATIONS: Disposition: Pt is accepting of medical care, denies suicidal/homicidal ideation, intent or plan, and no noted bere or psychosis. Pt does not meet criteria for inpatient psychiatric hospitalization. Will discontinue psychiatric hold and constant steam presser. Medications: Will increase sertraline to 100 mg daily Labs: per georgina Delirium precautions: Avoid sedating/anticholinergic medications, encourage sleep hygiene, minimize barriers to nutrition, optimize sensory input and access to assistive devices (dentures, glasses, etc) where indicated, encourage time up in chair as able, D/c Pascual, restraints, IV lines, as able and reserve agitation PRNs for instances where patient is danger to self/others/treatment. Recommendations shared with primary team. Follow up: peripherally as able, provided [facility] resources for OP follow up after ETOH rehabilitation. On this day, 07/08/24, I spent total time 35 minutes preparing to see the pt, reviewing previous notes, obtaining/reviewing separately obtained, history, test results, coordinating care with hospital staff, counseling/educating the patient/family/caregiver and face to face with the patient discussing the diagnosis, current symptom burden, medication side effects, medication change options, and importance of compliance with the treatment plan as well as documenting all relevant and pertinent clinical information in the patient's electronic record on the day of the visit. Images from the original note were not included. ADDICTION MEDICINE PROGRESS NOTE Patient: Woody Ni Problem List: Principal Problem: Metabolic acidosis, increased anion gap SUBJECTIVE Chief Complaint Patient presents with Dizziness Vomiting Alcohol Problem Last 4 CIWA scores per RN assessments Interim History Patient's withdrawal symptoms continue to improve. He denies nausea, vomiting, constipation, and diarrhea. He denies SI/HI/AH. He continues to see some "floating embers" in his vision, but does not find them concerning. He has no other questions or concerns at this time. Review of Systems Review of Systems Constitutional: Negative for activity change, appetite change, diaphoresis, fatigue and fever. HENT: Negative for rhinorrhea. Eyes: Negative for photophobia. Respiratory: Negative for chest tightness and shortness of breath. Cardiovascular: Negative for chest pain. Gastrointestinal: Negative for abdominal pain, constipation, diarrhea, nausea and vomiting. Musculoskeletal: Negative for arthralgias, back pain, gait problem and myalgias. Skin: Negative for rash and wound. Neurological: Negative for dizziness, tremors, seizures, weakness, light-headedness, numbness and headaches. Psychiatric/Behavioral: Positive for hallucinations (visual hallucinations). Negative for agitation, confusion, decreased concentration, dysphoric mood, sleep disturbance and suicidal ideas. The patient is not nervous/anxious. All other systems reviewed and are negative. OBJECTIVE Vitals Vitals: 07/07/24 0555 07/07/24 0741 07/07/24 1645 07/07/24 2124 BP: 122/77 133/93 151/94 116/63 BP Location: Left arm Right arm Patient Position: Lying Lying Pulse: 95 106 115 99 Resp: 16 Temp: 36.3 C (97.4 F) 36.7 C (98 F) TempSrc: Temporal Temporal SpO2: 100% 100% 99% Weight: Height: Physical Exam Vitals and nursing note reviewed. Constitutional: General: He is not in acute distress. Appearance: Normal appearance. He is not ill-appearing, toxic-appearing or diaphoretic. HENT: Head: Normocephalic. Nose: Nose normal. Mouth/Throat: Mouth: Mucous membranes are moist. Eyes: Extraocular Movements: Extraocular movements intact. Cardiovascular: Pulses: Normal pulses. Pulmonary: Effort: Pulmonary effort is normal. Skin: General: Skin is warm and dry. Neurological: General: No focal deficit present. Mental Status: He is alert and oriented to person, place, and time. Cranial Nerves: Cranial nerves 2-12 are intact. Motor: Motor function is intact. Psychiatric: Attention and Perception: Attention normal. He perceives visual ("floating embers") hallucinations. Mood and Affect: Mood and affect normal. Speech: Speech normal. Behavior: Behavior normal. Behavior is cooperative. Thought Content: Thought content normal. Cognition and Memory: Cognition and memory normal. Judgment: Judgment normal. Medications Home Meds Current Outpatient Medications Medication Instructions albuterol 108 (90 Base) MCG/ACT inhaler 2 puffs, Inhalation, Every 6 hours PRN alendronate (FOSAMAX) 70 mg, Oral, Weekly amLODIPine (NORVASC) 2.5 mg, Oral, Daily cyanocobalamin (Vitamin B-12) 1000 MCG/ML injection 1 mL intramuscularly once a month dicyclomine (BENTYL) 20 mg, Oral, 3 times daily famotidine (PEPCID) 20 mg, Oral, 2 times daily fluticasone (Flonase) 50 MCG/ACT nasal spray 1 spray, Each Nostril, Daily PRN gabapentin (Neurontin) 100 MG capsule TAKE TWO CAPSULES BY MOUTH 3 TIMES DAILY hydrOXYzine pamoate (VISTARIL) 25 mg, Oral, Every 8 hours PRN ipratropium-albuterol (Duo-Neb) 0.5-2.5 mg/3 mL nebulizer solution Every 6 hours levothyroxine (Synthroid, Levoxyl) 50 MCG tablet TAKE 1 TABLET BY MOUTH DAILY loperamide (IMODIUM) 2 mg, Oral, Every morning losartan (COZAAR) 100 mg, Oral, Daily magnesium chloride 64 mg, Oral, Daily with breakfast mirtazapine (REMERON) 15 mg, Oral, Nightly nicotine polacrilex (COMMIT) 2 mg, Mouth/Throat, Every 2 hour PRN potassium chloride CR (Klor-Con) 10 MEQ ER tablet 10 mEq, Oral, Every morning sertraline (ZOLOFT) 50 mg, Oral, Daily spironolactone (ALDACTONE) 25 mg, Oral, Every morning tamsulosin (FLOMAX) 0.4 mg, Oral, Daily tiZANidine (ZANAFLEX) 4 mg, Oral, Every 6 hours PRN Scheduled Inpatient Meds amLODIPine, 2.5 mg, Oral, Daily dicyclomine, 20 mg, Oral, TID gabapentin, 300 mg, Oral, TID heparin, 5,000 Units, SubCUTAneous, 3 times per day influenza, 0.5 mL, IntraMUSCular, Once loperamide, 2 mg, Oral, BID losartan, 100 mg, Oral, Daily magnesium chloride, 1 tablet, Oral, Daily with breakfast mirtazapine, 15 mg, Oral, Nightly pantoprazole, 40 mg, Oral, qAM AC PHENobarbital, 100 mg, IntraVENous, q8h Followed by [START ON 07/09/2024] PHENobarbital, 100 mg, IntraVENous, q12h sertraline, 50 mg, Oral, Daily spironolactone, 25 mg, Oral, q AM tamsulosin, 0.4 mg, Oral, Daily PRN Inpatient Meds PRN medications: acetaminophen, albuterol, ipratropium-albuterol, LORazepam, nicotine polacrilex, ondansetron ODT OR ondansetron, polyethylene glycol (PEG) 3350 Continuous Inpatient Infusions Recent Imaging CT abdomen pelvis w contrast Result Date: 07/05/2024 Patient Name: WOOYD NI : 1960 Exam Date/Time: 07/05/2024 13:10 Procedure: CT ABDOMEN PELVIS W CONTRAST Ordering Provider: PIERCE MARGIT Reason For Exam: abdominal pain, diarrhea EXAMINATION: CT ABDOMEN PELVIS W CONTRAST CLINICAL HISTORY: abdominal pain, diarrhea COMPARISON: None TECHNIQUE: Contiguous axial images were obtained through the abdomen and pelvis from the level of the diaphragmatic domes through the pubic symphysis following bolus administration of intravenous contrast. Dose reduction was employed with automated exposure control. FINDINGS: Included images of the lower thorax: No focal lung consolidation or pleural effusion. Hepatobiliary: Unremarkable liver without biliary dilation evident. The gallbladder is surgically absent. Pancreas: Unremarkable Spleen: Unremarkable Adrenal Glands: Unremarkable Kidneys and ureters: No calculi or hydroureteronephrosis. Abdominal vasculature: Atherosclerotic wall calcifications are present without aneurysm. GI tract: No evidence of obstruction. The appendix is normal. Peritoneum and retroperitoneum: No free fluid or free air is noted. Lymph Nodes: No abdominal lymphadenopathy is evident. Pelvis: Unremarkable Visualized musculoskeletal structures: No acute fracture or destructive osseous lesion is identified. Mild retrolisthesis of L2-3, L2-L5 laminectomies. 1. No acute process. Report Dictated on Electronically Signed By: Lloyd Onofre MD Electronically Signed Date/Time: 07/05/2024 1:55 PM EDT US abdomen complete Result Date: 07/05/2024 [facility] Name: [facility] NI : 1960 [id number] Exam Date/Time: 07/05/2024 08:35 Procedure: US ABDOMEN COMPLETE Ordering Provider: ALMANZA FREDRICK Reason For Exam: ALCOHOLIC CIRRHOSIS ULTRASOUND ABDOMEN COMPLETE CLINICAL INDICATION: Abdominal pain cirrhosis TECHNIQUE: Grayscale sonographic images were obtained of the abdomen. Color Doppler was utilized. COMPARISON: Correlation is made to several prior studies including CT abdomen pelvis 12/22/2022 FINDINGS: Limitations: Overlying bowel gas and rib shadowing limits evaluation to some extent. Liver: Normal in size. Hepatic parenchymal echotexture is heterogeneous and coarsened. No discrete liver lesion. Gallbladder/biliary: Status post cholecystectomy. As per the neurology technologist, no sonographic Ortiz sign was present. No sonographic evidence of intrahepatic biliary ductal dilatation. Common bile duct is normal in caliber measuring six mm. Pancreas: Largely obscured by bowel gas and not well visualized or evaluated. Right kidney: 11.0 x 4.2 x 5.8 cm. Cortical thickness and echotexture appear within normal limits. No obstructive uropathy or nephrolithiasis. Punctate nonobstructing calculi better seen on prior CT Left kidney: 10.0 x 4.9 x 5.8 cm. Cortical thickness and echotexture appear within normal limits. No obstructive uropathy or nephrolithiasis. Spleen: Homogeneous in appearance. Measures 11.4 x 4.6 x 6.1 cm. Aorta and Inferior vena cava: Visualized portions appear within normal limits Ascites/additional findings: No significant ascites or other additional abnormality 1. Status post cholecystectomy. No biliary ductal dilatation. 2. Mild hepatocellular disease. 3. Pancreas is obscured by overlying bowel gas and not well visualized or evaluated. Report Dictated on Electronically Signed By: Juan Jose Abreu MD Electronically Signed Date/Time: 07/05/2024 8:[address] head wo IV contrast Result Date: 07/04/2024 Patient Name: WOODY NI : 1960 Exam Date/Time: 07/04/2024 18:06 Procedure: CT HEAD WO IV CONTRAST Ordering Provider: BELL SCOTT Reason For Exam: dizziness, generalized weakness, alcoholic CT HEAD: CLINICAL INDICATION: dizziness, generalized weakness, alcoholic TECHNIQUE: Transaxial CT sequence performed through the head with 3 mm reconstruction. Sagittal and Coronal reconstruction images included. Dose reduction was employed with automated exposure control. COMPARISON: CT head from 04/04/2024 FINDINGS: Cerebral and cerebellar parenchyma: Small focus of encephalomalacia in the left temporal lobe, likely due to a small remote infarct. Mild diffuse cortical volume loss. No acute intraparenchymal hemorrhage. No midline shift. Ventricles and Extra-axial spaces: Normal in size and morphology for the patient's age. No abnormal extracerebral collection identified. Visualized Paranasal sinuses: Mucosal thickening in the left maxillary sinus. Mastoid air cells: Normal. Visualized Orbits: Normal Calvarium and skull base: Normal No acute intracranial abnormality. 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 Report Dictated on Electronically Signed By: Barbara Henriquez MD Electronically Signed Date/Time: 07/04/2024 6:28 PM EDT XR chest 1 view Result Date: 07/04/2024 Patient Name: WOODY NI : 1960 Exam Date/Time: 07/04/2024 17:52 Procedure: XR CHEST 1 VIEW Ordering Provider: BELL SCOTT Reason For Exam: Muscle weakness (generalized) AP CHEST X-RAY CLINICAL INDICATION: Muscle weakness (generalized) TECHNIQUE: AP portable x-ray of the chest. COMPARISON: April 04, 2024 FINDINGS: Lines/Tubes: None Heart/Mediastinum: Within normal limits Lungs: Well-inflated and clear. No pneumothorax. Bones: Degenerative changes are seen in the thoracic spine and shoulders. No acute osseous findings. No acute cardiopulmonary disease. Report Dictated on Electronically Signed By: Marjan Ruth MD Electronically Signed Date/Time: 07/04/2024 6:00 PM EDT ECG 12 lead if not already done by Squad Sinus rhythm RBBB and LAFB Electronically Signed On 07-04-2024 17:44:57 EDT by Ashley Bell Labs CBC: Recent Labs 07/06/24 1041 07/07/24 0330 07/08/24 0328 WBC 4.5 5.3 5.4 HGB 11.1* 9.5* 10.0* PLT 192 176 172 MCV 90.2 88.7 89.5 RDW 13.3 13.6 13.8 BMP: Recent Labs 07/06/24 1041 07/07/24 0330 07/08/24 0328 NA 135 134* 135 K 3.4* 3.9 4.0 CL 108* 111* 108* CO2 16* 17* 22 BUN 13 9 8* CREATININE 0.93 0.86 0.90 CALCIUM 8.9 8.5 8.9 MG 1.4* -- -- Liver Profile: No results for input(s): "AST", "ALT", "BILITOT", "ALKPHOS", "PROT", "LIPASE", "INR" in the last 72 hours. No lab exists for component: LABALBU Glucose: Recent Labs 07/06/24 1041 07/07/24 0330 07/08/24 0328 GLUCOSE 184* 131* 97 Lactic Acid: No lab exists for component: "LACTA" Cardiac Injury Profile: No results for input(s): "CKTOTAL", "CKMB", "TROPONINI" in the last 72 hours. Last 24 Hours: Recent Results (from the past 24 hour(s)) CBC Collection Time: 07/08/24 3:28 AM Result Value Ref Range Auto WBC 5.4 3.6 - 10.7 10*3/uL RBC 3.25 (L) 4.40 - 5.90 10*6/uL Hemoglobin 10.0 (L) 13.0 - 18.0 g/dL Hematocrit 29.1 (L) 40.0 - 52.0 % MCV 89.5 77.0 - 99.0 fL MCH 30.8 26.0 - 34.0 pg MCHC 34.4 30.5 - 36.0 % RDW 13.8 11.5 - 15.0 % Platelets 172 140 - 440 10*3/uL MPV 9.5 9.0 - 12.7 fL Basic metabolic panel Collection Time: 07/08/24 3:28 AM Result Value Ref Range SODIUM 135 135 - 145 mmol/L POTASSIUM 4.0 3.5 - 5.1 mmol/L CHLORIDE 108 (H) 98 - 107 mmol/L CARBON DIOXIDE 22 22 - 30 mmol/L UREA NITROGEN 8 (L) 9 - 20 mg/dL CREATININE 0.90 0.66 - 1.25 mg/dL GLUCOSE 97 70 - 100 mg/dL CALCIUM 8.9 8.4 - 10.4 mg/dL ANION GAP 5 3 - 13 mmol/L eGFR >90.0 >60.0 mL/min/1.73m*2 ASSESSMENT & PLAN Alcohol use disorder Counseled patient on biopsychosocial consequences of substance use. Encouraged professional chemical dependency treatment. Encouraged 12 step meeting attendance. Follow up plan for addiction management discussed with patient: Patient advised to follow up with AA outpatient. Patient wishes to be started on Naltrexone post detox. Naltrexone 50 mg Daily PO Alcohol withdrawal Last use of EtOH was on 07/03/2024 at 1800. Phenobarbital taper to manage alcohol withdrawal symptoms. 100 mg IV q12h for today. Adjunct thiamine/folic acid Gabapentin 300 mg 3 times daily CIWA scores per unit protocol. PRN medications for withdrawal symptom management added. Depression PTSD Continue home medications: Sertraline 50 mg daily Remeron 15 mg nightly Consulted psychiatry for further treatment and management. Patient placed on yellow slip. Disposition: Discharge per primary team ADM will sign off. Secure chat if further consultation needed. This patient was staffed with Dr. Perez. Electronically signed by Josefina Newton MD at 9:13 AM Associated attestation - Alberto Perez MD - 07/08/2024 12:55 PM EDT Patient seen and examined by me. Discussed patient with the resident/fellow/LEENA. Agree with assessment and plan as written. I discussion regarding this patient's condition ,chemical dependency, psychiatric and medical history, symptoms and signs , reviewing past detoxification hospitalizations, assessing withdrawal status, evaluating detoxification medications, and discussing lab work and treatment plan ,importance of compliance with the treatment with providing options, as well as documenting on the day of the visit. Alberto Perez MD 07/08/24 12:55 PM Images from the original note were not included. OCCUPATIONAL THERAPY [facility] Treatment Note Name/MRN: Woody Ni ([id number]) Date of : 1960 Age: 64 y.o. Room/Bed: W3-336/W3-336 B Discharge Recommendation: Detention Facility, Home with assist PRN Prior Level of Function ADL Assistance: Independent Ambulation Assistance: Independent Transfer Assistance: Independent Assessment Limited session, pt to have IV placed, needs to be in bed for same. Would benefit from ongoing therapies, SNF vs home with assist/HHC. Will further assess when more functional activities can be completed. Subjective Pt in bed, RN to put IV in soon. Pt agrees to OT bed level while awaiting. Pain: No specific c/o pain this session. Medical Precautions: No active isolations Proper PPE donned/doffed in accordance with facility standards. Fall Risk: Maurice Fall Risk Score: 85 (Medium Risk) Maurice Fall Risk Score: 85 (High Risk) Family/Caregiver Present: none Objective ADLs Grooming: Supervision, bed level Bed Mobility Supv to reposition at midline Exercise Comment: BUE ROM, 2 sets x 10 reps x 5 exer with brief rest breaks, min cues for technique. Suggest completion of same 2-3x/day. Pt verbalizes understanding, states has been doing "some" LE exer as well. Plan Continue acute OT per plan of care. Safety/Education Safety Safety Devices in place: call light within reach, left in bed, and steam presser present Restraints: N/A Education exer Will need ongoing education. AM-PAC AM-PAC Inpatient Daily Activity Raw Score: 21 ADL Inpatient CMS G-Code Modifier: CJ Goals Patient Stated Goal: No specific goal stated this session Encounter Problems Encounter Problems (Active) Balance Patient will maintain static standing balance for 5 minutes with independence in order to demonstrate decreased risk of falling. (Not Addressed) Start: 07/05/24 Expected End: 08/02/24 Bathing Patient will utilize adaptive techniques to bathe body mod indep. (Not Addressed) Start: 07/05/24 Expected End: 08/02/24 Cognition Patient will utilize 1 coping skill to reduce risk of substance use and to increase independence with daily routines with no more than min cues. (Not Addressed) Start: 07/05/24 Expected End: 08/02/24 Dressings Lower Extremities Patient will dress lower body indep. (Not Addressed) Start: 07/05/24 Expected End: 08/02/24 Instrumental Activities of Daily Living Patient will implement 2 energy conservation techniques during ADLs with no more than min cues. (Not Addressed) Start: 07/05/24 Expected End: 08/02/24 Toileting Patient will complete toileting tasks indep. (Not Addressed) Start: 07/05/24 Expected End: 08/02/24 Transfers Patient will complete functional transfer with least restrictive device with independence in order to prepare for ambulation. (Not Addressed) Start: 07/05/24 Expected End: 08/02/24 Therapy Time Individual Co-treatment Time In 1445 Time Out 1453 Minutes 8 Timed Code Treatment Minutes: (Ther Ex--1) DARWIN Gonzales Images from the original note were not included. PHYSICAL THERAPY [facility] Name/MRN: Woody Ni ([id number]) Date: 07/07/2024 Per nursing staff, patient has been agitated, restless, and tearful this date. Upon arrival to room, 1:1 sitter reports that patient has only just finally calmed down and fell asleep. Will attempt later as able. Concepcion Aguirre PTA [facility] Department of Psychiatry Nurse Practitioner Note *Please contact Outpatient 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Psychiatry Listed in [facility] On-Call Finder Mon-Fri: From 1700 - 0800 and on Thursday & Thursday* TODAY'S DATE: 07/07/24 ADMISSION DATE: 07/04/2024 Hospital Day: 3 IDENTIFYING INFORMATION Name: Woody Ni : 1960 Consulting Practitioner: DARREN Khoury SUBJECTIVE: CHIEF COMPLAINT: CC: Chief Complaint Patient presents with Dizziness Vomiting Alcohol Problem Principal Problem: Metabolic acidosis, increased anion gap For every encounter with this patient, if applicable this Provider wore appropriate PPE including but not limited to standard precautions, N95 mask, surgical mask, gown and/or protective eyewear. Chart reviewed, including notes, labs, imagining, allergies, and medications, all pertinent information discussed with medical staff, nursing, social work, and patient/family if necessary. HISTORY OF PRESENT ILLNESS: HPI: In brief, Woody Ni is a 64 y.o., male who was hospitalized at [facility] for Metabolic acidosis, increased anion gap on 07/04/2024. PMH of depression, HTN, DM admitted for metabolic acidosis. Psychiatry consulted for depression. Interval History: pt seen in follow up for depression with suicidal ideation. The patient was seen and examined. The chart was reviewed. Pt seen sleeping soundly with constant steam presser at bedside. Pt does not arouse to voice, no noted distress, respirations equal and unlabored. Tolerating Rx mirtazapine and sertraline without side effects. REVIEW OF SYSTEMS: MEDICAL REVIEW OF SYMPTOMS: Review of Systems Constitutional: Positive for activity change. Respiratory: Negative for cough and shortness of breath. Cardiovascular: Negative for chest pain. Gastrointestinal: Positive for abdominal pain, diarrhea and nausea. Neurological: Negative for speech difficulty. Psychiatric/Behavioral: Positive for dysphoric mood and suicidal ideas. All other systems reviewed and are negative. Medications: Current Facility Administered Medications: Current Facility-Administered Medications: acetaminophen (Tylenol) tablet 500 mg, 500 mg, Oral, q6h PRN, Virgilio Almanza MD, 500 mg at 07/07/24 0612 albuterol 108 (90 Base) MCG/ACT inhaler 2 puff, 2 puff, Inhalation, q6h PRN, Virgilio Almanza MD amLODIPine (Norvasc) tablet 2.5 mg, 2.5 mg, Oral, Daily, Virgilio Almanza MD, 2.5 mg at 07/07/24 0949 dicyclomine (Bentyl) tablet 20 mg, 20 mg, Oral, TID, Virgilio Almanza MD, 20 mg at 07/07/24 1440 folic acid 1 mg in dextrose 5 % 50 mL IVPB, 1 mg, IntraVENous, Daily, Virgilio Almanza MD, Stopped at 07/06/24 0856 gabapentin (Neurontin) capsule 300 mg, 300 mg, Oral, TID, Josefina Newton MD, 300 mg at 07/07/24 1440 heparin injection 5,000 Units, 5,000 Units, SubCUTAneous, 3 times per day, Virgilio Almanza MD, 5,000 Units at 07/07/24 1440 influenza vac tiss-cult subunt (Flucelvax) injection 0.5 mL, 0.5 mL, IntraMUSCular, Once, Virgilio Almanza MD ipratropium-albuterol (Duo-Neb) 0.5-2.5 mg/3 mL nebulizer solution 3 mL, 3 mL, Nebulization, q4h PRN, Emiliano Church DO loperamide (Imodium) capsule 2 mg, 2 mg, Oral, BID, Verónica Pierce PA-C, 2 mg at 07/07/24 0949 LORazepam (Ativan) tablet 1 mg, 1 mg, Oral, q4h PRN, Virgilio Almanza MD, 1 mg at 07/07/24 1219 losartan (Cozaar) tablet 100 mg, 100 mg, Oral, Daily, Virgilio Almanza MD, 100 mg at 07/07/24 0949 magnesium chloride EC tablet 64 mg, 1 tablet, Oral, Daily with breakfast, Virgiilo Almanza MD, 64 mg at 07/06/24 1032 mirtazapine (Remeron) tablet 15 mg, 15 mg, Oral, Nightly, Virgilio Almanza MD, 15 mg at 07/06/242025 nicotine polacrilex (Commit) lozenge 2 mg, 2 mg, Mouth/Throat, q2h PRN, Virgilio Almanza MD ondansetron ODT (Zofran-ODT) disintegrating tablet 4 mg, 4 mg, Oral, q8h PRN OR ondansetron (Zofran) injection 4 mg, 4 mg, IntraVENous, q6h PRN, Virgilio Almanza MD pantoprazole (ProtoNix) EC tablet 40 mg, 40 mg, Oral, qAM AC, Virgilio Almanza MD, 40 mg at 07/07/24 0607 [] PHENobarbital (Luminal) injection 100 mg, 100 mg, IntraVENous, Q4H, 100 mg at 07/07/24 0131 FOLLOWED BY PHENobarbital (Luminal) injection 100 mg, 100 mg, IntraVENous, q6h, 100 mg at 07/07/24 1430 FOLLOWED BY [START ON 07/08/2024] PHENobarbital (Luminal) injection 100 mg, 100 mg, IntraVENous, q8h FOLLOWED BY [START ON 07/09/2024] PHENobarbital (Luminal) injection 100 mg, 100 mg, IntraVENous, q12h, Josefina Newton MD polyethylene glycol (PEG) 3350 (Miralax) packet 17 g, 17 g, Oral, Daily PRN, Virgilio Almanza MD sertraline (Zoloft) tablet 50 mg, 50 mg, Oral, Daily, Emiliano Church, , 50 mg at 07/07/24 0948 sodium chloride 0.9 % with KCl 20 mEq/L infusion, 125 mL/hr, IntraVENous, Continuous, Virgilio Almanza MD, Stopped at 07/07/24 0603 spironolactone (Aldactone) tablet 25 mg, 25 mg, Oral, q AM, Virgilio Almanza MD, 25 mg at 07/07/24 0949 tamsulosin (Flomax) 24 hr capsule 0.4 mg, 0.4 mg, Oral, Daily, Virgilio Almanza MD, 0.4 mg at 07/07/24 0949 Medications Prior to Admission: Current Outpatient Medications Medication Instructions albuterol 108 (90 Base) MCG/ACT inhaler 2 puffs, Inhalation, Every 6 hours PRN alendronate (FOSAMAX) 70 mg, Oral, Weekly amLODIPine (NORVASC) 2.5 mg, Oral, Daily cyanocobalamin (Vitamin B-12) 1000 MCG/ML injection 1 mL intramuscularly once a month dicyclomine (BENTYL) 20 mg, Oral, 3 times daily famotidine (PEPCID) 20 mg, Oral, 2 times daily fluticasone (Flonase) 50 MCG/ACT nasal spray 1 spray, Each Nostril, Daily PRN gabapentin (Neurontin) 100 MG capsule TAKE TWO CAPSULES BY MOUTH 3 TIMES DAILY hydrOXYzine pamoate (VISTARIL) 25 mg, Oral, Every 8 hours PRN ipratropium-albuterol (Duo-Neb) 0.5-2.5 mg/3 mL nebulizer solution Every 6 hours levothyroxine (Synthroid, Levoxyl) 50 MCG tablet TAKE 1 TABLET BY MOUTH DAILY loperamide (IMODIUM) 2 mg, Oral, Every morning losartan (COZAAR) 100 mg, Oral, Daily magnesium chloride 64 mg, Oral, Daily with breakfast mirtazapine (REMERON) 15 mg, Oral, Nightly nicotine polacrilex (COMMIT) 2 mg, Mouth/Throat, Every 2 hour PRN potassium chloride CR (Klor-Con) 10 MEQ ER tablet 10 mEq, Oral, Every morning sertraline (ZOLOFT) 50 mg, Oral, Daily spironolactone (ALDACTONE) 25 mg, Oral, Every morning tamsulosin (FLOMAX) 0.4 mg, Oral, Daily tiZANidine (ZANAFLEX) 4 mg, Oral, Every 6 hours PRN Allergies: Allergies Allergen Reactions Allopurinol Other Breaks out in blisters Codeine Nausea Only Penicillin G Swelling History: Past Medical and Psychiatric History: 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 Nausea and vomiting 12/22/22-12/26/22 admitted at [facility] Pain management Sleep apnea noncompliant with device Family Psychiatric and Medical History: Family History Problem Relation Name Age of Onset Depression Mother Depression Maternal Grandmother PAST SURGICAL HISTORY Past Surgical History: Procedure Laterality Date BACK SURGERY x 2 CHOLECYSTECTOMY LAMINECTOMY LAP,CHOLECYSTECTOMY (HISTORICAL) N/A 01/05/2023 WISDOM TOOTH EXTRACTION Social History: Social Connections: Socially Isolated (12/07/2023) Social Connection and Isolation Panel [NHANES] Frequency of Communication with Friends and Family: Never Frequency of Social Gatherings with Friends and Family: Never Attends Amish Services: Never Active Member of Clubs or Organizations: No Attends Club or Organization Meetings: Not on file Marital Status: Living with partner Social Determinants of Health Tobacco Use: High Risk (04/29/2024) Patient History Smoking Tobacco Use: Every Day Smokeless Tobacco Use: Former Passive Exposure: Not on file Alcohol Use: Alcohol Misuse (07/05/2024) AUDIT-C Frequency of Alcohol Consumption: 4 or more times a week Average Number of Drinks: 7 to 9 Frequency of Binge Drinking: Daily or almost daily Financial Resource Strain: High Risk (01/15/2024) Overall Financial Resource Strain (CARDIA) Difficulty of Paying Living Expenses: Hard Food Insecurity: Food Insecurity Present (07/05/2024) Hunger Vital Sign Worried About Running Out of Food in the Last Year: Sometimes true Ran Out of Food in the Last Year: Sometimes true Transportation Needs: No Transportation Needs (07/05/2024) PRAPARE - Transportation Lack of Transportation (Medical): No Lack of Transportation (Non-Medical): No Physical Activity: Unknown (01/15/2024) Exercise Vital Sign Days of Exercise per Week: 0 days Minutes of Exercise per Session: Not on file Recent Concern: Physical Activity - Inactive (01/15/2024) Exercise Vital Sign Days of Exercise per Week: 0 days Minutes of Exercise per Session: 0 min Stress: No Stress Concern Present (04/03/2023) [employer] [place] [employer] - Occupational Stress Questionnaire Feeling of Stress : Not at all Social Connections: Socially Isolated (12/07/2023) Social Connection and Isolation Panel [NHANES] Frequency of Communication with Friends and Family: Never Frequency of Social Gatherings with Friends and Family: Never Attends Amish Services: Never Active Member of Clubs or Organizations: No Attends Club or Organization Meetings: Not on file Marital Status: Living with partner Intimate Partner Violence: Not At Risk (07/05/2024) Humiliation, Afraid, Rape, and Kick questionnaire Fear of Current or Ex-Partner: No Emotionally Abused: No Physically Abused: No Sexually Abused: No Depression: At risk (07/05/2024) PHQ-2 PHQ-2 Score: 6 Housing Stability: Low Risk (07/05/2024) Housing Stability Vital Sign Unable to Pay for Housing in the Last Year: No Number of Times Moved in the Last Year: 1 Homeless in the Last Year: No Utilities: Not At Risk (07/05/2024) [facility] Utilities Threatened with loss of utilities: No Health Literacy: Not on file OBJECTIVE: PHYSICAL EXAM: Vitals: Vitals: 07/07/24 0135 07/07/24 0219 07/07/24 0555 07/07/24 0741 BP: 99/53 122/77 133/93 BP Location: Right arm Left arm Patient Position: Lying Lying Pulse: 92 95 106 Resp: 16 16 Temp: 36.4 C (97.6 F) 36.3 C (97.4 F) TempSrc: Temporal Temporal SpO2: 96% 98% 100% Weight: Height: Physical Exam: Physical Exam Physical Exam Vitals and nursing note reviewed. Constitutional: General: He is not in acute distress. Appearance: Normal appearance. He is not ill-appearing. HENT: Head: Normocephalic and atraumatic. Nose: Nose normal. Cardiovascular: Rate and Rhythm: Tachycardia present. Pulmonary: Effort: Pulmonary effort is normal. No respiratory distress. Skin: General: Skin is warm and dry. Neurological: Mental Status: He is alert and oriented to person, place, and time. Psychiatric: Attention and Perception: Attention normal. He perceives visual (black shadows in peripheral vision) hallucinations. Mood and Affect: Mood is depressed. Affect is mood congruent Speech: Speech normal. Behavior: Behavior normal. Behavior is cooperative. Thought Content: Thought content includes suicidal ideation. Thought content includes suicidal plan. Cognition and Memory: Cognition and memory normal. Judgment: Judgment normal. Labs: I reviewed pertinent laboratory results, radiographic results, Most recent EKG, and Other Clinical Notes at the time of today's encounter. Recent Results (from the past 72 hour(s)) CBC auto differential Collection Time: 07/04/24 5:35 PM Result Value Ref Range Auto WBC 9.6 3.6 - 10.7 10*3/uL RBC 3.84 (L) 4.40 - 5.90 10*6/uL Hemoglobin 11.7 (L) 13.0 - 18.0 g/dL Hematocrit 32.5 (L) 40.0 - 52.0 % MCV 84.6 77.0 - 99.0 fL MCH 30.5 26.0 - 34.0 pg MCHC 36.0 30.5 - 36.0 % RDW 12.8 11.5 - 15.0 % Platelets 227 140 - 440 10*3/uL MPV 8.9 (L) 9.0 - 12.7 fL nRBC 0.0 0.0 - 2.0 /100 WBCs Neutrophils Relative 63.7 38.0 - 82.0 % Lymphocytes Relative 26.3 15.0 - 45.0 % Monocytes Relative 7.5 5.0 - 13.0 % Eosinophils Relative 1.5 0.0 - 6.0 % Basophils Relative 0.7 0.0 - 2.0 % Immature Grans % 0.3 0.0 - 2.0 % Neutrophils Absolute 6.1 1.8 - 7.5 10*3/uL Lymphocytes Absolute 2.5 1.0 - 4.3 10*3/uL Monocytes Absolute 0.7 0.0 - 0.9 10*3/uL Eosinophils Absolute 0.1 0.0 - 0.5 10*3/uL Basophils Absolute 0.1 0.0 - 0.2 10*3/uL Immature Grans Absolute 0.0 <0.1 10*3/uL Troponin I Collection Time: 07/04/24 5:35 PM Result Value Ref Range TROPONIN I 0.026 <0.034 ng/mL Lactic acid with reflex Collection Time: 07/04/24 5:35 PM Result Value Ref Range LACTIC ACID 2.6 (H) 0.7 - 2.0 mmol/L Ethanol Collection Time: 07/04/24 5:35 PM Result Value Ref Range ETHANOL IN SER/PLAS 0.032 (H) 0.000 - 0.010 g/dL Beta Hydroxybutyrate Collection Time: 07/04/24 5:35 PM Result Value Ref Range BETA HYDROXYBUTYRATE 20.30 (H) 0.20 - 2.81 mg/dL Blood gas, venous ([place]) Collection Time: 07/04/24 5:35 PM Result Value Ref Range pH 7.343 7.310 - 7.410 pCO2 32 (L) 40 - 55 mm(Hg) pO2 62 mm(Hg) BASE EXCESS -8.0 (L) -3.0 - 3.0 mmol/L HCO3 17.5 (L) 23.0 - 27.0 mmol/L TCO2 18.0 (L) 24.0 - 28.0 mmol/L O2 Saturation 90.0 (H) 60.0 - 80.0 % Source Of Oxygen Room Air Protime-INR Collection Time: 07/04/24 5:35 PM Result Value Ref Range PROTHROMBIN TIME 12.4 (H) 9.0 - 12.0 s INR 1.1 0.9 - 1.1 Ammonia Collection Time: 07/04/24 5:35 PM Result Value Ref Range AMMONIA 17 9 - 30 umol/L Lipase Collection Time: 07/04/24 5:35 PM Result Value Ref Range LIPASE 133 23 - 300 U/L Comprehensive metabolic panel Collection Time: 07/04/24 5:35 PM Result Value Ref Range SODIUM 124 (L) 135 - 145 mmol/L POTASSIUM 2.7 (L) 3.5 - 5.1 mmol/L CHLORIDE 90 (L) 98 - 107 mmol/L CARBON DIOXIDE 14 (L) 22 - 30 mmol/L ANION GAP 20 (H) 3 - 13 mmol/L UREA NITROGEN 18 9 - 20 mg/dL CREATININE 1.33 (H) 0.66 - 1.25 mg/dL GLUCOSE 86 70 - 100 mg/dL CALCIUM 8.8 8.4 - 10.4 mg/dL AST (SGOT) 38 15 - 46 U/L ALT 17 0 - 49 U/L ALKALINE PHOSPHATASE 68 38 - 126 U/L ALBUMIN 4.1 3.5 - 5.0 g/dL BILIRUBIN, TOTAL 0.8 0.2 - 1.3 mg/dL TOTAL PROTEIN 6.6 6.3 - 8.2 g/dL eGFR 59.7 (L) >60.0 mL/min/1.73m*2 Magnesium Collection Time: 07/04/24 5:35 PM Result Value Ref Range MAGNESIUM 1.5 (L) 1.6 - 2.3 mg/dL SARS-CoV-2, Flu A/B, and RSV Combo Collection Time: 07/04/24 5:37 PM Specimen: Nasopharynx; Swab Result Value Ref Range SARS-CoV-2 Not Detected Not Detected Respiratory Syncytial Virus Not Detected Not Detected Influenza A Not Detected Not Detected Influenza B Not Detected Not Detected ECG 12 lead if not already done by Squad Collection Time: 07/04/24 5:41 PM Result Value Ref Range Heart Rate 96 bpm QRSD Interval 154 ms QT Interval 450 ms QTC Interval 570 ms P [place] 58 degrees QRS [place] -58 degrees T Wave [place] 10 degrees TX Interval 142 ms Lactic acid with reflex Collection Time: 07/04/24 10:02 PM Result Value Ref Range LACTIC ACID 0.6 (L) 0.7 - 2.0 mmol/L Basic metabolic panel Collection Time: 07/05/24 2:46 AM Result Value Ref Range SODIUM 127 (L) 135 - 145 mmol/L POTASSIUM 3.1 (L) 3.5 - 5.1 mmol/L CHLORIDE 100 98 - 107 mmol/L CARBON DIOXIDE 18 (L) 22 - 30 mmol/L UREA NITROGEN 17 9 - 20 mg/dL CREATININE 1.13 0.66 - 1.25 mg/dL GLUCOSE 125 (H) 70 - 100 mg/dL CALCIUM 8.6 8.4 - 10.4 mg/dL ANION GAP 8 3 - 13 mmol/L eGFR 72.6 >60.0 mL/min/1.73m*2 CBC auto differential Collection Time: 07/05/24 2:46 AM Result Value Ref Range Auto WBC 6.7 3.6 - 10.7 10*3/uL RBC 3.66 (L) 4.40 - 5.90 10*6/uL Hemoglobin 10.9 (L) 13.0 - 18.0 g/dL Hematocrit 31.6 (L) 40.0 - 52.0 % MCV 86.3 77.0 - 99.0 fL MCH 29.8 26.0 - 34.0 pg MCHC 34.5 30.5 - 36.0 % RDW 12.8 11.5 - 15.0 % Platelets 187 140 - 440 10*3/uL MPV 9.1 9.0 - 12.7 fL nRBC 0.0 0.0 - 2.0 /100 WBCs Neutrophils Relative 63.7 38.0 - 82.0 % Lymphocytes Relative 24.0 15.0 - 45.0 % Monocytes Relative 9.1 5.0 - 13.0 % Eosinophils Relative 2.1 0.0 - 6.0 % Basophils Relative 0.7 0.0 - 2.0 % Immature Grans % 0.4 0.0 - 2.0 % Neutrophils Absolute 4.3 1.8 - 7.5 10*3/uL Lymphocytes Absolute 1.6 1.0 - 4.3 10*3/uL Monocytes Absolute 0.6 0.0 - 0.9 10*3/uL Eosinophils Absolute 0.1 0.0 - 0.5 10*3/uL Basophils Absolute 0.1 0.0 - 0.2 10*3/uL Immature Grans Absolute 0.0 <0.1 10*3/uL Lactic acid with reflex Collection Time: 07/05/24 2:46 AM Result Value Ref Range LACTIC ACID 0.7 0.7 - 2.0 mmol/L Lipase Collection Time: 07/05/24 2:46 AM Result Value Ref Range LIPASE 134 23 - 300 U/L Gastrointestinal PCR Panel Collection Time: 07/05/24 4:09 AM Specimen: Per Rectum; Stool Result Value Ref Range Campylobacter Not Detected Not Detected Plesiomonas shigelloides Not Detected Not Detected Salmonella Not Detected Not Detected Vibrio species Not Detected Not Detected Vibrio cholerae Not Detected Not Detected Yersinia enterocolitica Not Detected Not Detected Enterotoxigenic E coli (ETEC) Not Detected Not Detected Shiga toxin-producing E coli (STEC) Not Detected Not Detected Shigella/Enteroinvasive E coli (EIEC) Not Detected Not Detected Cryptosporidium Not Detected Not Detected Cyclospora cayetanensis Not Detected Not Detected Entamoeba histolytica Not Detected Not Detected Giardia lamblia Not Detected Not Detected Adenovirus F 40/41 Not Detected Not Detected Astrovirus Not Detected Not Detected Norovirus GI/GII Not Detected Not Detected Rotavirus A Not Detected Not Detected Sapovirus Not Detected Not Detected C. DIFFICILE by PCR with Reflex to EIA Collection Time: 07/05/24 4:09 AM Specimen: Per Rectum; Stool Result Value Ref Range C. difficile toxin PCR Not Detected Not Detected CBC Collection Time: 07/06/24 10:41 AM Result Value Ref Range Auto WBC 4.5 3.6 - 10.7 10*3/uL RBC 3.67 (L) 4.40 - 5.90 10*6/uL Hemoglobin 11.1 (L) 13.0 - 18.0 g/dL Hematocrit 33.1 (L) 40.0 - 52.0 % MCV 90.2 77.0 - 99.0 fL MCH 30.2 26.0 - 34.0 pg MCHC 33.5 30.5 - 36.0 % RDW 13.3 11.5 - 15.0 % Platelets 192 140 - 440 10*3/uL MPV 9.2 9.0 - 12.7 fL Basic metabolic panel Collection Time: 07/06/24 10:41 AM Result Value Ref Range SODIUM 135 135 - 145 mmol/L POTASSIUM 3.4 (L) 3.5 - 5.1 mmol/L CHLORIDE 108 (H) 98 - 107 mmol/L CARBON DIOXIDE 16 (L) 22 - 30 mmol/L UREA NITROGEN 13 9 - 20 mg/dL CREATININE 0.93 0.66 - 1.25 mg/dL GLUCOSE 184 (H) 70 - 100 mg/dL CALCIUM 8.9 8.4 - 10.4 mg/dL ANION GAP 10 3 - 13 mmol/L eGFR >90.0 >60.0 mL/min/1.73m*2 Magnesium Collection Time: 07/06/24 10:41 AM Result Value Ref Range MAGNESIUM 1.4 (L) 1.6 - 2.3 mg/dL CBC Collection Time: 07/07/24 3:30 AM Result Value Ref Range Auto WBC 5.3 3.6 - 10.7 10*3/uL RBC 3.09 (L) 4.40 - 5.90 10*6/uL Hemoglobin 9.5 (L) 13.0 - 18.0 g/dL Hematocrit 27.4 (L) 40.0 - 52.0 % MCV 88.7 77.0 - 99.0 fL MCH 30.7 26.0 - 34.0 pg MCHC 34.7 30.5 - 36.0 % RDW 13.6 11.5 - 15.0 % Platelets 176 140 - 440 10*3/uL MPV 9.7 9.0 - 12.7 fL Basic metabolic panel Collection Time: 07/07/24 3:30 AM Result Value Ref Range SODIUM 134 (L) 135 - 145 mmol/L POTASSIUM 3.9 3.5 - 5.1 mmol/L CHLORIDE 111 (H) 98 - 107 mmol/L CARBON DIOXIDE 17 (L) 22 - 30 mmol/L UREA NITROGEN 9 9 - 20 mg/dL CREATININE 0.86 0.66 - 1.25 mg/dL GLUCOSE 131 (H) 70 - 100 mg/dL CALCIUM 8.5 8.4 - 10.4 mg/dL ANION GAP 5 3 - 13 mmol/L eGFR >90.0 >60.0 mL/min/1.73m*2 Mental Status Exam: MSE: Deferred dt pt sleeping ASSESSMENT: Patient Active Problem List Diagnosis Osteoarthritis of spine with radiculopathy, lumbar region Essential hypertension Hyponatremia Diabetes (HCC) Hypovolemia Cirrhosis (HCC) Chronic alcoholic hepatitis Asthma Severe malnutrition (CMS/HCC) (HCC) Thyroid disease SHAYLA (obstructive sleep apnea) Lumbar stenosis Postural dizziness with presyncope HLD (hyperlipidemia) Hepatitis Intractable nausea and vomiting Chronic pain syndrome Complication of surgical procedure Intercostal pain Low back pain Mild recurrent major depression (HCC) Myalgia Right hip pain Shoulder joint pain Acute kidney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 alcoholic hepatitis Asthma Severe malnutrition (CMS/HCC) (HCC) Thyroid disease SHAYLA (obstructive sleep apnea) Lumbar stenosis Postural dizziness with presyncope HLD (hyperlipidemia) Hepatitis Intractable nausea and vomiting Chronic pain syndrome Complication of surgical procedure Intercostal pain Low back pain Mild recurrent major depression (HCC) Myalgia Right hip pain Shoulder joint pain Acute kidney injury (HCC) DENNYS (acute kidney injury) (HCC) Gallbladder sludge RUQ pain Acute on chronic cholecystitis 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) Severe alcohol use disorder (HCC) Alcohol withdrawal syndrome with complication (HCC) Alcohol abuse Recurrent falls Alcohol induced acute pancreatitis without necrosis or infection Repeated falls Moderate malnutrition (CMS/HCC) (HCC) Alcohol withdrawal syndrome without complication (HCC) Other pancytopenia (CMS/HCC) (HCC) Alcohol use disorder Metabolic acidosis, increased anion gap 1. Metabolic acidosis, increased anion gap 2. Ketosis (HCC) 3. Alcohol use 4. Hypokalemia 5. Hypomagnesemia Major depressive disorder, recurrent, severe, without psychotic features Suicidal Ideation PLAN: RECOMMENDATIONS: Disposition: Pt is currently medically admitted. 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 Pt may not leave AMA. Medications: continue home sertraline and mirtazapine as currently prescribed Labs: per primary Delirium precautions: Avoid sedating/anticholinergic medications, encourage sleep hygiene, minimize barriers to nutrition, optimize sensory input and access to assistive devices (dentures, glasses, etc) where indicated, encourage time up in chair as able, D/c Pasc[place], restraints, IV lines, as able and reserve agitation PRNs for instances where patient is danger to self/others/treatment. Follow up: psychiatry to follow On this day, 07/06/24, I spent total time 35 minutes preparing to see the pt, reviewing previous notes, obtaining/reviewing separately obtained, history, test results, coordinating care with hospital staff, counseling/educating the patient/family/caregiver and face to face with the patient discussing the diagnosis, current symptom burden, medication side effects, medication change options, and importance of compliance with the treatment plan as well as documenting all relevant and pertinent clinical information in the patient's electronic record on the day of the visit. [facility] Respiratory Care Department Progress Note As part of the Respiratory Assessment Program (RAP), the following Respiratory Therapist evaluation has been completed, including a chart review and clinical/physical assessment. Respiratory Therapist RAP Evaluation Guideline Points 0 1 2 3 4 Points Strongly Consider History Factor No Pulmonary conditions Stable Pulmonary condition(s) Surgery or Intervention that may impact Pulmonary system (at risk) Surgery or Intervention that is impacting Pulmonary system Active Exacerbation of Pulmonary Condition 0 Respiratory Pattern Regular, RR= 12-18 TABOR or Increased RR= 19-24 Irregular, or RR= 25-30 SOB, talk in short sentences, or RR= 31-35 Severe SOB, accessory muscle use, one word answers, or RR>35 0 Aerosol Med(s), High Flow O2 Breath Sounds Clear Diminished in 1 lobe Diminished in ? 2 lobes Adventitious breath sounds Coarse crackles, Wheezes, or Diminished in >2 lobes 0 Aerosol Med(s), Bronchial Hygiene, Hyperinflation Cough & Sputum Strong cough, no secretion retention or production Weak cough, no secretion retention or production Weak cough, w/ production (less often than Q2hr), or secretion retention No cough, w/ secretion retention or production (less often than Q2hr) Significant secretion production (more often than Q2hr) or mucus plug 0 Aerosol Med(s), Bronchial Hygiene, Hyperinflation Level of Activity Ambulatory Ambulatory with Assist Up in chair or edge of bed (dangle) Non-ambulatory, bedridden with active ROM Completely paralyzed or without active ROM 0 Triage 5 0-2 Triage 4 3-5 Triage 3 6-10 Triage 2 11-14 Triage 1 ?15 Total 0 Triage Score = 5 TRIAGE SCORING - SUGGESTED FREQUENCIES Aerosol Therapy Bronchial Hygiene Hyperinflation Triage Score Q4h & PRN 1 Q4hWA (QID) & PRN 2 TID & PRN 3 BID & PRN 4 PRN 5 Therapy(s) Indicated Yes/No Aerosol Medication n Hyperinflation n Bronchial Hygiene n High Flow Oxygen n RT to enter/modify frequency of treatment order in EMR/EHR to match this RAP evaluation. Based on this RAP evaluation the following therapy is being initiated: N/A At the following frequency: Duoneb Q4PRN Comments: R/A Spo2 99% Thank you for involving Respiratory in the care of this patient, Images from the original note were not included. ADDICTION MEDICINE PROGRESS NOTE Patient: Woody Ni Problem List: Principal Problem: Metabolic acidosis, increased anion gap SUBJECTIVE Chief Complaint Patient presents with Dizziness Vomiting Alcohol Problem Last 4 CIWA scores per RN assessments - N/A Interim History Patient was found lying in bed upon entering the room. Patient was calm and cooperative throughout the interview. Patient states that he is feeling better than yesterday. His weakness, nausea, and vomiting have resolved. Patient is still experiencing visual hallucinations of small, black, indistinguishable objects moving through his vision mostly in the periphery. He is also experiencing tinnitus bilaterally. Patient denies auditory hallucinations or homicidal ideation. Patient is having passive suicidal ideation without plan with thoughts of "I have been on this earth too long". He is not having thoughts of wanting to do anything to end his life at the moment, but he is tired of being on this earth. He discloses that he is still having flashbacks regarding his past trauma, but he did not have any nightmares overnight. Review of Systems Review of Systems Constitutional: Negative for activity change, appetite change, diaphoresis, fatigue and fever. HENT: Positive for tinnitus (bilateral). Negative for rhinorrhea. Eyes: Negative for photophobia. Respiratory: Negative for chest tightness and shortness of breath. Cardiovascular: Negative for chest pain. Gastrointestinal: Negative for abdominal pain, constipation, diarrhea, nausea and vomiting. Musculoskeletal: Negative for arthralgias, back pain, gait problem and myalgias. Skin: Negative for rash and wound. Neurological: Negative for dizziness, tremors, seizures, weakness, light-headedness, numbness and headaches. Psychiatric/Behavioral: Positive for dysphoric mood, hallucinations (VH of small, black, indistinguishable objects) and suicidal ideas (passive, w/o plan). Negative for agitation, confusion, decreased concentration and sleep disturbance. The patient is not nervous/anxious. Endorses flashbacks All other systems reviewed and are negative. OBJECTIVE Vitals Vitals: 07/05/24 2242 07/06/24 0359 07/06/24 0652 07/06/24 1300 BP: 102/61 121/78 115/74 125/90 BP Location: Right arm Patient Position: Lying Pulse: 89 99 88 114 Resp: Temp: 36.3 C (97.3 F) 36.3 C (97.3 F) 36.4 C (97.6 F) TempSrc: Temporal Temporal Temporal SpO2: 97% 98% 99% 99% Weight: Height: Physical Exam Vitals and nursing note reviewed. Constitutional: General: He is not in acute distress. Appearance: Normal appearance. He is not ill-appearing or toxic-appearing. HENT: Head: Normocephalic. Nose: Nose normal. Mouth/Throat: Mouth: Mucous membranes are moist. Eyes: Extraocular Movements: Extraocular movements intact. Right eye: Nystagmus (mild) present. Left eye: Nystagmus (mild) present. Pulmonary: Effort: Pulmonary effort is normal. Skin: General: Skin is warm and dry. Neurological: General: No focal deficit present. Mental Status: He is alert and oriented to person, place, and time. Cranial Nerves: Cranial nerves 2-12 are intact. Motor: Motor function is intact. Comments: Bilateral hand tremor-improved from yesterday Psychiatric: Attention and Perception: Attention normal. He perceives visual (black shadows in peripheral vision) hallucinations. Mood and Affect: Mood is depressed. Affect is blunt. Speech: Speech normal. Behavior: Behavior normal. Behavior is cooperative. Thought Content: Thought content normal. Cognition and Memory: Cognition and memory normal. Comments: Insight: Fair Judgment: Fair Medications Home Meds Current Outpatient Medications Medication Instructions albuterol 108 (90 Base) MCG/ACT inhaler 2 puffs, Inhalation, Every 6 hours PRN alendronate (FOSAMAX) 70 mg, Oral, Weekly amLODIPine (NORVASC) 2.5 mg, Oral, Daily cyanocobalamin (Vitamin B-12) 1000 MCG/ML injection 1 mL intramuscularly once a month dicyclomine (BENTYL) 20 mg, Oral, 3 times daily famotidine (PEPCID) 20 mg, Oral, 2 times daily fluticasone (Flonase) 50 MCG/ACT nasal spray 1 spray, Each Nostril, Daily PRN gabapentin (Neurontin) 100 MG capsule TAKE TWO CAPSULES BY MOUTH 3 TIMES DAILY hydrOXYzine pamoate (VISTARIL) 25 mg, Oral, Every 8 hours PRN ipratropium-albuterol (Duo-Neb) 0.5-2.5 mg/3 mL nebulizer solution Every 6 hours levothyroxine (Synthroid, Levoxyl) 50 MCG tablet TAKE 1 TABLET BY MOUTH DAILY loperamide (IMODIUM) 2 mg, Oral, Every morning losartan (COZAAR) 100 mg, Oral, Daily magnesium chloride 64 mg, Oral, Daily with breakfast mirtazapine (REMERON) 15 mg, Oral, Nightly nicotine polacrilex (COMMIT) 2 mg, Mouth/Throat, Every 2 hour PRN potassium chloride CR (Klor-Con) 10 MEQ ER tablet 10 mEq, Oral, Every morning sertraline (ZOLOFT) 50 mg, Oral, Daily spironolactone (ALDACTONE) 25 mg, Oral, Every morning tamsulosin (FLOMAX) 0.4 mg, Oral, Daily tiZANidine (ZANAFLEX) 4 mg, Oral, Every 6 hours PRN Scheduled Inpatient Meds amLODIPine, 2.5 mg, Oral, Daily dicyclomine, 20 mg, Oral, TID folic acid 1 mg in dextrose 5 % 50 mL IVPB, 1 mg, IntraVENous, Daily gabapentin, 300 mg, Oral, TID heparin, 5,000 Units, SubCUTAneous, 3 times per day influenza, 0.5 mL, IntraMUSCular, Once ipratropium-albuterol, 3 mL, Nebulization, BID loperamide, 2 mg, Oral, BID losartan, 100 mg, Oral, Daily magnesium chloride, 1 tablet, Oral, Daily with breakfast mirtazapine, 15 mg, Oral, Nightly pantoprazole, 40 mg, Oral, qAM AC PHENobarbital, 100 mg, IntraVENous, Q4H Followed by [START ON 07/07/2024] PHENobarbital, 100 mg, IntraVENous, q6h Followed by [START ON 07/08/2024] PHENobarbital, 100 mg, IntraVENous, q8h Followed by [START ON 07/09/2024] PHENobarbital, 100 mg, IntraVENous, q12h sertraline, 50 mg, Oral, Daily spironolactone, 25 mg, Oral, q AM tamsulosin, 0.4 mg, Oral, Daily thiamine, 100 mg, IntraVENous, Daily PRN Inpatient Meds PRN medications: acetaminophen, albuterol, LORazepam, nicotine polacrilex, ondansetron ODT OR ondansetron, polyethylene glycol (PEG) 3350 Continuous Inpatient Infusions sodium chloride 0.9 % with KCl, 125 mL/hr, Last Rate: 125 mL/hr (07/06/24 0550) Recent Imaging CT abdomen pelvis w contrast Result Date: 07/05/2024 Patient Name: WOODY NI : 1960 Exam Date/Time: 07/05/2024 13:10 Procedure: CT ABDOMEN PELVIS W CONTRAST Ordering Provider: PIERCE MARGIT Reason For Exam: abdominal pain, diarrhea EXAMINATION: CT ABDOMEN PELVIS W CONTRAST CLINICAL HISTORY: abdominal pain, diarrhea COMPARISON: None TECHNIQUE: Contiguous axial images were obtained through the abdomen and pelvis from the level of the diaphragmatic domes through the pubic symphysis following bolus administration of intravenous contrast. Dose reduction was employed with automated exposure control. FINDINGS: Included images of the lower thorax: No focal lung consolidation or pleural effusion. Hepatobiliary: Unremarkable liver without biliary dilation evident. The gallbladder is surgically absent. Pancreas: Unremarkable Spleen: Unremarkable Adrenal Glands: Unremarkable Kidneys and ureters: No calculi or hydroureteronephrosis. Abdominal vasculature: Atherosclerotic wall calcifications are present without aneurysm. GI tract: No evidence of obstruction. The appendix is normal. Peritoneum and retroperitoneum: No free fluid or free air is noted. Lymph Nodes: No abdominal lymphadenopathy is evident. Pelvis: Unremarkable Visualized musculoskeletal structures: No acute fracture or destructive osseous lesion is identified. Mild retrolisthesis of L2-3, L2-L5 laminectomies. 1. No acute process. Report Dictated on Electronically Signed By: Lloyd Onofre MD Electronically Signed Date/Time: 07/05/2024 1:55 PM EDT US abdomen complete Result Date: 07/05/2024 [facility] Name[facility] NI : 1960 [id number] Exam Date/Time: 07/05/2024 08:35 Procedure: US ABDOMEN COMPLETE Ordering Provider: ALMANZA FREDRICK Reason For Exam: ALCOHOLIC CIRRHOSIS ULTRASOUND ABDOMEN COMPLETE CLINICAL INDICATION: Abdominal pain cirrhosis TECHNIQUE: Grayscale sonographic images were obtained of the abdomen. Color Doppler was utilized. COMPARISON: Correlation is made to several prior studies including CT abdomen pelvis 12/22/2022 FINDINGS: Limitations: Overlying bowel gas and rib shadowing limits evaluation to some extent. Liver: Normal in size. Hepatic parenchymal echotexture is heterogeneous and coarsened. No discrete liver lesion. Gallbladder/biliary: Status post cholecystectomy. As per the neurology technologist, no sonographic Ortiz sign was present. No sonographic evidence of intrahepatic biliary ductal dilatation. Common bile duct is normal in caliber measuring six mm. Pancreas: Largely obscured by bowel gas and not well visualized or evaluated. Right kidney: 11.0 x 4.2 x 5.8 cm. Cortical thickness and echotexture appear within normal limits. No obstructive uropathy or nephrolithiasis. Punctate nonobstructing calculi better seen on prior CT Left kidney: 10.0 x 4.9 x 5.8 cm. Cortical thickness and echotexture appear within normal limits. No obstructive uropathy or nephrolithiasis. Spleen: Homogeneous in appearance. Measures 11.4 x 4.6 x 6.1 cm. Aorta and Inferior vena cava: Visualized portions appear within normal limits Ascites/additional findings: No significant ascites or other additional abnormality 1. Status post cholecystectomy. No biliary ductal dilatation. 2. Mild hepatocellular disease. 3. Pancreas is obscured by overlying bowel gas and not well visualized or evaluated. Report Dictated on Electronically Signed By: Juan Jose Abreu MD Electronically Signed Date/Time: 07/05/2024 8:[address] head wo IV contrast Result Date: 07/04/2024 Patient Name: WOODY NI : 1960 [id number] Exam Date/Time: 07/04/2024 18:06 Procedure: CT HEAD WO IV CONTRAST Ordering Provider: BELL SCOTT Reason For Exam: dizziness, generalized weakness, alcoholic CT HEAD: CLINICAL INDICATION: dizziness, generalized weakness, alcoholic TECHNIQUE: Transaxial CT sequence performed through the head with 3 mm reconstruction. Sagittal and Coronal reconstruction images included. Dose reduction was employed with automated exposure control. COMPARISON: CT head from 04/04/2024 FINDINGS: Cerebral and cerebellar parenchyma: Small focus of encephalomalacia in the left temporal lobe, likely due to a small remote infarct. Mild diffuse cortical volume loss. No acute intraparenchymal hemorrhage. No midline shift. Ventricles and Extra-axial spaces: Normal in size and morphology for the patient's age. No abnormal extracerebral collection identified. Visualized Paranasal sinuses: Mucosal thickening in the left maxillary sinus. Mastoid air cells: Normal. Visualized Orbits: Normal Calvarium and skull base: Normal No acute intracranial abnormality. 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 Report Dictated on Electronically Signed By: Barbara Henriquez MD Electronically Signed Date/Time: 07/04/2024 6:28 PM EDT XR chest 1 view Result Date: 07/04/2024 Patient Name: WOODY NI : 1960 [id number] Exam Date/Time: 07/04/2024 17:52 Procedure: XR CHEST 1 VIEW Ordering Provider: BELL SCOTT Reason For Exam: Muscle weakness (generalized) AP CHEST X-RAY CLINICAL INDICATION: Muscle weakness (generalized) TECHNIQUE: AP portable x-ray of the chest. COMPARISON: April 04, 2024 FINDINGS: Lines/Tubes: None Heart/Mediastinum: Within normal limits Lungs: Well-inflated and clear. No pneumothorax. Bones: Degenerative changes are seen in the thoracic spine and shoulders. No acute osseous findings. No acute cardiopulmonary disease. Report Dictated on Electronically Signed By: Marjan Ruth MD Electronically Signed Date/Time: 07/04/2024 6:00 PM EDT ECG 12 lead if not already done by Squad Sinus rhythm RBBB and LAFB Electronically Signed On 07-04-2024 17:44:57 EDT by Ashley Bell Labs CBC: Recent Labs 07/04/24173407/05/2424507/06/24 1041 WBC 9.6 6.7 4.5 HGB 11.7* 10.9* 11.1* PLT 227 187 192 MCV 84.6 86.3 90.2 RDW 12.8 12.8 13.3 BMP: Recent Labs 07/04/24173407/05/246 07/06/24 1041 NA 124* 127* 135 K 2.7* 3.1* 3.4* CL 90* 100 108* CO2 14* 18* 16* BUN 18 17 13 CREATININE 1.33* 1.13 0.93 CALCIUM 8.8 8.6 8.9 MG 1.5* -- 1.4* Liver Profile: Recent Labs 07/04/24173407/05/24245 AST 38 -- ALT 17 -- BILITOT 0.8 -- ALKPHOS 68 -- PROT 6.6 -- LIPASE 133 134 INR 1.1 -- Glucose: Recent Labs 07/04/24 1735 07/05/24 0246 07/06/24 1041 GLUCOSE 86 125* 184* Lactic Acid: No lab exists for component: "LACTA" Cardiac Injury Profile: Recent Labs 07/04/24 1735 TROPONINI 0.026 Last 24 Hours: Recent Results (from the past 24 hour(s)) CBC Collection Time: 07/06/24 10:41 AM Result Value Ref Range Auto WBC 4.5 3.6 - 10.7 10*3/uL RBC 3.67 (L) 4.40 - 5.90 10*6/uL Hemoglobin 11.1 (L) 13.0 - 18.0 g/dL Hematocrit 33.1 (L) 40.0 - 52.0 % MCV 90.2 77.0 - 99.0 fL MCH 30.2 26.0 - 34.0 pg MCHC 33.5 30.5 - 36.0 % RDW 13.3 11.5 - 15.0 % Platelets 192 140 - 440 10*3/uL MPV 9.2 9.0 - 12.7 fL Basic metabolic panel Collection Time: 07/06/24 10:41 AM Result Value Ref Range SODIUM 135 135 - 145 mmol/L POTASSIUM 3.4 (L) 3.5 - 5.1 mmol/L CHLORIDE 108 (H) 98 - 107 mmol/L CARBON DIOXIDE 16 (L) 22 - 30 mmol/L UREA NITROGEN 13 9 - 20 mg/dL CREATININE 0.93 0.66 - 1.25 mg/dL GLUCOSE 184 (H) 70 - 100 mg/dL CALCIUM 8.9 8.4 - 10.4 mg/dL ANION GAP 10 3 - 13 mmol/L eGFR >90.0 >60.0 mL/min/1.73m*2 Magnesium Collection Time: 07/06/24 10:41 AM Result Value Ref Range MAGNESIUM 1.4 (L) 1.6 - 2.3 mg/dL ASSESSMENT & PLAN Alcohol use disorder Counseled patient on biopsychosocial consequences of substance use. Encouraged professional chemical dependency treatment. Encouraged 12 step meeting attendance. Follow up plan for addiction management discussed with patient: Patient shows interest in CD IOP, AA, and naltrexone/Vivitrol options to maintain sobriety post discharge. Alcohol withdrawal Last use of EtOH was on 07/03/2024 at 1800. Phenobarbital taper to manage alcohol withdrawal symptoms. 100 mg IV q for hours for today. Adjunct thiamine/folic acid Gabapentin 300 mg 3 times daily CIWA scores per unit protocol. PRN medications for withdrawal symptom management added. Depression PTSD Continue home medications: Sertraline 50 mg daily Remeron 15 mg nightly Consulted psychiatry for further treatment and management. Patient placed on yellow slip. Disposition: Discharge anticipated in 3-4 days. Will follow. This patient was staffed with Dr. Perez. Electronically signed by Josefina Newton MD at 1:09 PM Associated attestation - Alberto Perez MD - 07/06/2024 3:02 PM EDT Patient seen and examined by me. Discussed patient with the resident/fellow/LEENA. Agree with assessment and plan as written. I provided discussion regarding this patient's condition ,chemical dependency, psychiatric and medical history, symptoms and signs , reviewing past detoxification hospitalizations, assessing withdrawal status, evaluating detoxification medications, and discussing lab work and treatment plan ,importance of compliance with the treatment with providing options, as well as documenting on the day of the visit. Alberto Perez MD 07/06/24 3:02 PM Department of Internal Medicine Gastroenterology Progress Note SUBJECTIVE: GI following for Diarrhea. Pt is laying in bed without any acute distress. Pt denies any current abdominal pain, however, does exhibit rebound tenderness on physical exam. Pt reports no significant changes related to his diarrhea. He initially reports 10-12 watery BM later reducing number to 8. Denies any blood or mucus in stool. When pt is asked, if current frequency of BM is normal for him, he states that he has 15-20 BM at home, saying he feels the need to go after every beer he drinks. Pt reports improvement in nausea with no vomiting since last visit. Pt denies any SOB or chest discomfort. Denies fever and chills. Pt endorses no further questions or complaints. Medications Scheduled Meds: Current Facility-Administered Medications: acetaminophen (Tylenol) tablet 500 mg, 500 mg, Oral, q6h PRN, Virgilio Almanza MD, 500 mg at 07/05/24 1640 albuterol 108 (90 Base) MCG/ACT inhaler 2 puff, 2 puff, Inhalation, q6h PRN, Virgilio Almanza MD amLODIPine (Norvasc) tablet 2.5 mg, 2.5 mg, Oral, Daily, Virgilio Almanza MD, 2.5 mg at 07/05/24935 dicyclomine (Bentyl) tablet 20 mg, 20 mg, Oral, TID, Virgilio Almanza MD, 20 mg at 07/05/242004 folic acid 1 mg in dextrose 5 % 50 mL IVPB, 1 mg, IntraVENous, Daily, Virgilio Almanza MD, Stopped at 07/05/24 1010 gabapentin (Neurontin) capsule 300 mg, 300 mg, Oral, TID, Josefina Newton MD, 300 mg at 07/05/242003 heparin injection 5,000 Units, 5,000 Units, SubCUTAneous, 3 times per day, Virgilio Almanza MD, 5,000 Units at 07/06/24 0550 influenza vac tiss-cult subunt (Flucelvax) injection 0.5 mL, 0.5 mL, IntraMUSCular, Once, Virgilio Almanza MD ipratropium-albuterol (Duo-Neb) 0.5-2.5 mg/3 mL nebulizer solution 3 mL, 3 mL, Nebulization, BID, Virgilio Almanza MD, 3 mL at 07/05/24 1544 loperamide (Imodium) capsule 2 mg, 2 mg, Oral, q AM, Virgilio Almanza MD, 2 mg at 07/05/24935 LORazepam (Ativan) tablet 1 mg, 1 mg, Oral, q4h PRN, Virgilio Almanza MD, 1 mg at 07/06/24 0030 losartan (Cozaar) tablet 100 mg, 100 mg, Oral, Daily, Virgilio Almanza MD, 100 mg at 07/05/2436 magnesium chloride EC tablet 64 mg, 1 tablet, Oral, Daily with breakfast, Virgilio Almanza MD, 64 mg at 07/05/24 0938 mirtazapine (Remeron) tablet 15 mg, 15 mg, Oral, Nightly, Virgilio Almanza MD, 15 mg at 07/05/242003 nicotine polacrilex (Commit) lozenge 2 mg, 2 mg, Mouth/Throat, q2h PRN, Virgilio Almanza MD ondansetron ODT (Zofran-ODT) disintegrating tablet 4 mg, 4 mg, Oral, q8h PRN OR ondansetron (Zofran) injection 4 mg, 4 mg, IntraVENous, q6h PRN, Virgilio Almanza MD pantoprazole (ProtoNix) EC tablet 40 mg, 40 mg, Oral, qAM AC, Virgilio Almanza MD, 40 mg at 07/06/24 0549 PHENobarbital (Luminal) injection 100 mg, 100 mg, IntraVENous, Q4H, Josefina Newton MD, 100 mg at 07/06/24 0334 polyethylene glycol (PEG) 3350 (Miralax) packet 17 g, 17 g, Oral, Daily PRN, Virgilio Almanza MD sertraline (Zoloft) tablet 50 mg, 50 mg, Oral, Daily, Emiliano Church, , 50 mg at 07/05/24 1155 sodium chloride 0.9 % with KCl 20 mEq/L infusion, 125 mL/hr, IntraVENous, Continuous, Virgilio Almanza MD, Last Rate: 125 mL/hr at 07/06/24 0550, 125 mL/hr at 07/06/24 0550 spironolactone (Aldactone) tablet 25 mg, 25 mg, Oral, q AM, Virgilio Almanza MD, 25 mg at 07/05/24 0936 tamsulosin (Flomax) 24 hr capsule 0.4 mg, 0.4 mg, Oral, Daily, Virgilio Almanza MD, 0.4 mg at 07/05/24 0936 thiamine (Vitamin B1) injection 100 mg, 100 mg, IntraVENous, Daily, Virgilio Almanza MD, 100 mg at 07/05/24 0937 OBJECTIVE VITALS: BP 115/74 Pulse 88 Temp 36.3 C (97.3 F) (Temporal) Resp 18 Ht 5' 10" (1.778 m) Wt 164 lb 0.4 oz (74.4 kg) SpO2 99% BMI 23.53 kg/m Average, Min, and Max for last24 hours Vitals: TEMPERATURE: Temp Av.4 C (97.5 F) Min: 36.3 C (97.3 F) Max: 36.7 C (98.1 F) RESPIRATIONS RANGE: Resp Av.2 Min: 16 Max: 20 PULSE RANGE: Pulse Av.2 Min: 88 Max: 104 BLOOD PRESSURE RANGE: Systolic (24hrs), Av , Min:101 , Max:134 ; Diastolic (24hrs), Av, Min:61, Max:78 PULSE OXIMETRY RANGE:SpO2 Av % Min: 94 % Max: 99 % No intake/output data recorded. Constitutional: No acute distress. Eyes: Pupils are equal and round; Conjunctiva are not injected; Sclera are non-icteric. ENT: Ears/nose without external abnormalities. Oral mucosa is pink and moist. Neck: No JVD. No carotid bruits; No thyromegaly. Respiratory: Clear to auscultation bilaterally without any added sounds. Effort is normal Heart: Regular, Normal S1 and S2. No murmur; No added sounds. Abdomen: Normal BS, soft, non-tender,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 is visibly tearful and distraught. Pt tells this RN "You are my best chance right now, and I trust you and I need to be honest with you. I tried calling my ex- a little bit ago and she told me to lose her number and forget her. None of my family has come to see me and they don't care about me. I lied to the psychiatrist yesterday, and I am not proud of it as it was a huge mistake. I have no friends, you nurses are my best friends right now. I want to kill myself and I can not get rid of these thoughts no matter how hard I try." Pt endorses feelings of hopelessness, shame, and deep sadness. Pt says his heart hurts and he needs help badly. Pt says he is scared that he would do something he can not reverse if he were to leave the hospital in this state. Pt remains tearful throughout entire encounter. Attending and psychiatry notified. This RN remains at the bedside until a steam presser can be present for pt safety. Attending Dr. Church came to the bedside to speak with the pt at this time. Pt reassured and comforted. 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 Notified Physician. documented in this encounter [facility] 07-09-2024 Plan of care note The patient is Moderately Stable - Low risk of patient condition declining or worsening The patient's goals for the shift include pt safety The clinical goals for the shift include stay safe and free from falls Over the shift, the patient did make progress toward the following goals. Barriers to progression include none. Recommendations to address these barriers include none. Problem: Pain - Adult Goal: Verbalizes/displays adequate comfort level or baseline comfort level Outcome: Progressing Problem: Safety - Adult Goal: Free from fall injury Outcome: Progressing Problem: Discharge Planning Goal: Discharge to home or other facility with appropriate resources Outcome: Progressing Problem: Chronic Conditions and Co-morbidities Goal: Patient's chronic conditions and co-morbidity symptoms are monitored and maintained or improved Outcome: Progressing Problem: Knowledge Deficit Goal: Patient/family/caregiver demonstrates understanding of disease process, treatment plan, medications, and discharge instructions Outcome: Progressing Problem: Potential for Compromised Skin Integrity Goal: Skin Integrity is Maintained or Improved Outcome: Progressing Goal: Nutritional status is improving Outcome: Progressing Problem: Urinary Incontinence Goal: Perineal skin integrity is maintained or improved Outcome: Progressing Problem: Inadequate Coping Goal: Demonstrates ability to cope effectively Outcome: Progressing Goal: Verbalizes adaptive coping mechanisms Outcome: Progressing Goal: Verbalizes personal strengths Outcome: Progressing Problem: Potential for Suicide Goal: Remain free from self harm Outcome: Progressing Problem: Discharge Barriers Goal: My discharge needs are met Outcome: Progressing T [facility] 07-08-2024 Plan of care note Problem: Pain - Adult Goal: Verbalizes/displays adequate comfort level or baseline comfort level Outcome: Progressing Problem: Safety - Adult Goal: Free from fall injury Outcome: Progressing Problem: Discharge Planning Goal: Discharge to home or other facility with appropriate resources Outcome: Progressing Problem: Chronic Conditions and Co-morbidities Goal: Patient's chronic conditions and co-morbidity symptoms are monitored and maintained or improved Outcome: Progressing Problem: Knowledge Deficit Goal: Patient/family/caregiver demonstrates understanding of disease process, treatment plan, medications, and discharge instructions Outcome: Progressing T [facility] 07-08-2024 Note Formatting of this n ote might be different from the original. Patient Choice Patient Name: WOODY NI Date of : 1960 All Providers Sent Referral Name: Dakota Rhodes [facility] Member Phone: [phone] Address: [address] [place] [address] Name: [facility] Phone: [phone] Address: [address] [place] [address] Name: [facility] Phone: [phone] Address: [address] [place] [address] [facility] 07-08-2024 Note Formatting of this n ote might be different from the original. Patient Choice Patient Name: WOODY NI Date of : 1960 All Providers Sent Referral Name: Dakota Rhodes - [facility] Member Phone: [phone] Address: [address] [place] [address] Name: [facility] Phone: [phone] Address: [address] [place] [address] Name: [facility] Phone: [phone] Address: [address] [place] [address] [facility] 07-08-2024 Note Formatting of this n ote might be different from the original. [facility] per [facility] request. Await review and response regarding ability to accept. TCC notified. [facility] 07-08-2024 Note Formatting of this n ote might be different from the original. Referral placed to SNFs [facility] via [facility] per TCC request. Await review and response regarding ability to accept. TCC notified. [facility] 07-08-2024 Note Formatting of this n ote might be different from the original. Met with patient- sitter discontinued SI discontinued . Ready for discharge NOT going to [facility] , feels better- wants to go to SNF. [facility]errals sent to [facility]- [facility] 2-[facility] 3- [facility] T[facility] tasked weekend to follow need therapy and auth isaias , 7000. Not able to discharge ti ll Thursday [facility] 07-08-2024 Note Formatting of this n ote might be different from the original. Met with patient- sitter discontinued SI discontinued . Ready for discharge NOT going to [facility] , feels better- wants to go to SNF. Referrals sent to [address] [place] [address] [facility] tasked weekend to follow need therapy and auth isaias , 7000. Not able to discharge ti thursday [facility] 07-08-2024 Hospital Discharge instructions LEAH Jimenez CNP - 07/08/2024 11:35 AM EDT [facility] Address: [address] [place] [address] Walk-in Clinic: 12:00 pm [facility] [address], [address] [place] [address] [facility] documented in this encounter [facility] 07-08-2024 Plan of care note The patient is Moderately Stable - Low risk of patient condition declining or worsening The patient's goals for the shift include safety and rest The clinical goals for the shift include stay safe and free from falls Over the shift, the patient did make progress toward the following goals. Barriers to progression include none. Recommendations to address these barriers include none. Problem: Pain - Adult Goal: Verbalizes/displays adequate comfort level or baseline comfort level Outcome: Progressing Problem: Safety - Adult Goal: Free from fall injury Outcome: Progressing Problem: Discharge Planning Goal: Discharge to home or other facility with appropriate resources Outcome: Progressing Problem: Chronic Conditions and Co-morbidities Goal: Patient's chronic conditions and co-morbidity symptoms are monitored and maintained or improved Outcome: Progressing Problem: Knowledge Deficit Goal: Patient/family/caregiver demonstrates understanding of disease process, treatment plan, medications, and discharge instructions Outcome: Progressing Problem: Potential for Compromised Skin Integrity Goal: Skin Integrity is Maintained or Improved Outcome: Progressing Goal: Nutritional status is improving Outcome: Progressing Problem: Urinary Incontinence Goal: Perineal skin integrity is maintained or improved Outcome: Progressing Problem: Inadequate Coping Goal: Demonstrates ability to cope effectively Outcome: Progressing Goal: Verbalizes adaptive coping mechanisms Outcome: Progressing Goal: Verbalizes personal strengths Outcome: Progressing Problem: Potential for Suicide Goal: Remain free from self harm Outcome: Progressing Problem: Discharge Barriers Goal: My discharge needs are met Outcome: Progressing T [facility] 07-08-2024 Plan of care note Problem: Pain - Adult Goal: Verbalizes/displays adequate comfort level or baseline comfort level 07/08/2024144 by Jazmin Evans RN Outcome: Progressing 07/07/20242130 by Jazmin Evans RN Outcome: Progressing Flowsheets (Taken 07/07/20242117) Verbalizes/displays adequate comfort level or baseline comfort level: Encourage patient to monitor pain and request assistance Assess pain using appropriate pain scale Problem: Safety - Adult Goal: Free from fall injury 07/08/2024144 by Jazmin Evans RN Outcome: Progressing 07/07/20242130 by Jazmin Evans RN Outcome: Progressing Flowsheets (Taken 07/07/20241958) Free from fall injury: Instruct family/caregiver on patient safety Problem: Discharge Planning Goal: Discharge to home or other facility with appropriate resources 07/08/2024144 by Jazmin Evans RN Outcome: Progressing 07/07/20242130 by Jazmin Evans RN Outcome: Progressing Problem: Chronic Conditions and Co-morbidities Goal: Patient's chronic conditions and co-morbidity symptoms are monitored and maintained or improved 07/08/2024144 by Jazmin Evans RN Outcome: Progressing 07/07/20242130 by Jazmin Evans RN Outcome: Progressing Problem: Knowledge Deficit Goal: Patient/family/caregiver demonstrates understanding of disease process, treatment plan, medications, and discharge instructions 07/08/2024144 by Jazmin Evans RN Outcome: Progressing 07/07/20242130 by Jazmin Evans RN Outcome: Progressing Problem: Potential for Compromised Skin Integrity Goal: Skin Integrity is Maintained or Improved 07/08/2024 014 by Jazmin Evans RN Outcome: Progressing 07/07/20242130 by Jazmin Evans RN Outcome: Progressing Goal: Nutritional status is improving 07/08/2024 014 by Jazmin Evans RN Outcome: Progressing 07/07/2024 213 by Jazmin Evans RN Outcome: Progressing Problem: Urinary Incontinence Goal: Perineal skin integrity is maintained or improved 07/08/2024 014 by Jazmin Evans RN Outcome: Progressing 07/07/2024 213 by Jazmin Evans RN Outcome: Progressing Problem: Inadequate Coping Goal: Demonstrates ability to cope effectively 07/08/2024 014 by Jazmin Evans RN Outcome: Progressing 07/07/20242130 by Jazmin Evans RN Outcome: Progressing Goal: Verbalizes adaptive coping mechanisms 07/08/2024 014 by Jazmin Evans RN Outcome: Progressing 07/07/20242130 by Jazmin Evans RN Outcome: Progressing Goal: Verbalizes personal strengths 07/08/2024144 by Jazmin Evans RN Outcome: Progressing 07/07/2024 213 by Jazmin Evans RN Outcome: Progressing Problem: Potential for Suicide Goal: Remain free from self harm 07/08/2024144 by Jazmin Evans RN Outcome: Progressing 07/07/20242130 by Jazmin Evans RN Outcome: Progressing Problem: Discharge Barriers Goal: My discharge needs are met 07/08/2024144 by Jazmin Evans RN Outcome: Progressing 07/07/20242130 by Jazmin Evans RN Outcome: Progressing [facility] 07-07-2024 Nurse Note This nurse entered room, patient was bleeding from his Right arm 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 Notified Physician. [facility] 07-07-2024 Plan of care note The patient is Moderately Stable - Low risk of patient condition declining or worsening The patient's goals for the shift include Pt safety, withdrawal management. The clinical goals for the shift include stay safe and free from fallsanxiety management. Over the shift, the patient did not make progress toward the following goals. Barriers to progression include Picking at skin. Recommendations to address these barriers include Sitter encouraged to watch patient closely, covered open area with dressing and adaptic. . Problem: Potential for Compromised Skin Integrity Goal: Skin Integrity is Maintained or Improved Outcome: Not Progressing [facility] 07-07-2024 Telephone encounter Note Pt is currently admitted. Will contact pt when he get discharge. Thank you [facility] 07-07-2024 Miscellaneous Notes Pt is currently admitted. Will contact pt when he get discharge. Thank you GI Staff to scheduled hospital follow up and colonoscopy once discharged. Patient evaluated inpatient for diarrhea and abdominal pain. Needs OP colonoscopy. OV and please use inpatient colon spot for colonoscopy. Ok for LEENA. documented in this encounter [facility] 07-07-2024 Miscellaneous Notes Pt is currently admitted. Will contact pt when he get discharge. Thank you GI Staff to scheduled hospital follow up and colonoscopy once discharged. Patient evaluated inpatient for diarrhea and abdominal pain. Needs OP colonoscopy. OV and please use inpatient colon spot for colonoscopy. Ok for LEENA. documented in this encounter [facility] [employer] 07-07-2024 Note Formatting of this n ote might be different from the original. Care Managment Initial Assessment Date: 07/07/2024 Patient Name: Woody Ni : 1960 Patient Information Source of Information: Patient Cognition/Language: WFL - Within Functional Limits Permission given to speak with patient underwriting account representative/caregiver as indicated: Yes Confirmation of Payer with patient/family: Yes Payer Name: [employer] medicare [place]: No Confirmation of Primary Care Physician: Confirmed PCP Name: dr quezada Seen in last 2 years?: Yes Primary Caregiver: Self If assistance needed, confirmed caregiver ready, willing and able to care for patient at discharge: No Confirmed with: Living Arrangements Current Residence: Private Residence Number of Floors Number of Entry Steps: Bed/Bath Levels: Facility: Facility Name: Plan to Return: Lives with: Alone Support Systems: Family members, Friends/neighbors Activities of Daily Living Ambulation: Assistance Bathing/Dressing: Assistance Elimination/Continence/Toileting: Assistance Feeding: Assistance Who Assists with Activities of Daily Living: self Instrumental Activities of Daily Living Prescription Coverage: Yes Pharmacy Used: [address] [facility] Retail Pharmacy [facility] Retail Pharmacy Medication Management: Independent Transportation/Shopping: Independent Transportation Mode: Car Needs Assistance with Transportation at Discharge: Yes Meal Preparation: Independent Laundry/Cleaning: Independent Finances/Bill Paying: Independent Communication: Independent Types of Care Services/Equipment Utilized Care Services: Dialysis Type: Durable Medical Equipment: Cane, Walker, Wheelchair (standard or power), Bedside Commode, Scooter, Nebulizer, Raised Toilet Seat Patient's Goal/Discharge Plan Patient expects to be discharged to: [facility] Discharge Planning Actions: Continue to follow Patient's Choice Rights and [employer] and Collaborative Relationships Disclosed as Indicated for Post-Acute Care: Interdisciplinary Team Engagement: Social Work Referral for: Transportation Assistance, Community Resources, Direction Home Waiver Additional Information: Re admitted , from home. Has pcp , script coverage, . Sig SDOH, sw met with him, he is agreeable to go to [facility] [place] . Vs snf active with services. SW following . Waiting on medical stability for transfer Anna Yoder RN [facility] 07-07-2024 Note Formatting of this n ote might be different from the original. Care Managment Initial Assessment Date: 07/07/2024 Patient Name: Woody Ni : 1960 Patient Information Source of Information: Patient Cognition/Language: WFL - Within Functional Limits Permission given to speak with patient underwriting account representative/caregiver as indicated: Yes Confirmation of Payer with patient/family: Yes Payer Name: [employer] medicare [place]: No Confirmation of Primary Care Physician: Confirmed PCP Name: dr quezada Seen in last 2 years?: Yes Primary Caregiver: Self If assistance needed, confirmed caregiver ready, willing and able to care for patient at discharge: No Confirmed with: Living Arrangements Current Residence: Private Residence Number of Floors Number of Entry Steps: Bed/Bath Levels: Facility: Facility Name: Plan to Return: Lives with: Alone Support Systems: Family members, Friends/neighbors Activities of Daily Living Ambulation: Assistance Bathing/Dressing: Assistance Elimination/Continence/Toileting: Assistance Feeding: Assistance Who Assists with Activities of Daily Living: self Instrumental Activities of Daily Living Prescription Coverage: Yes Pharmacy Used: [facility] [place] [place] - [address] [facility] [address] [facility] Retail Pharmacy [facility] Retail Pharmacy Medication Management: Independent Transportation/Shopping: Independent Transportation Mode: Car Needs Assistance with Transportation at Discharge: Yes Meal Preparation: Independent Laundry/Cleaning: Independent Finances/Bill Paying: Independent Communication: Independent Types of Care Services/Equipment Utilized Care Services: Dialysis Type: Durable Medical Equipment: Cane, Walker, Wheelchair (standard or power), Bedside Commode, Scooter, Nebulizer, Raised Toilet Seat Patient's Goal/Discharge Plan Patient expects to be discharged to: [facility] Discharge Planning Actions: Continue to follow Patient's Choice Rights and [employer] and Collaborative Relationships Disclosed as Indicated for Post-Acute Care: Interdisciplinary Team Engagement: Social Work Referral for: Transportation Assistance, Community Resources, Direction Home Waiver Additional Information: Re admitted , from home. Has pcp , script coverage, . Sig SDOH, sw met with him, he is agreeable to go to [facility] . Vs snf active with services. SW following . Waiting on medical stability for transfer Anna Yoder RN [facility] 07-07-2024 Telephone encounter Note GI Staff to scheduled hospital follow up and colonoscopy once discharged. [facility] 07-07-2024 Plan of care note Problem: Pain - Adult Goal: Verbalizes/displays adequate comfort level or baseline comfort level 07/07/2024352 by Jazmin Evans RN Outcome: Progressing 07/07/2024344 by Jazmin Evans RN Outcome: Progressing 07/07/2024 012 by Jazmin Evans RN Outcome: Progressing Flowsheets (Taken 07/07/2024 0016) Verbalizes/displays adequate comfort level or baseline comfort level: Encourage patient to monitor pain and request assistance Assess pain using appropriate pain scale 07/07/2024 000 by Jazmin Evans RN Outcome: Progressing Problem: Safety - Adult Goal: Free from fall injury 07/07/2024 035 by aJzmin Evans RN Outcome: Progressing 07/07/2024 0345 by Jazmin Evans RN Outcome: Progressing 07/07/2024 012 by Jazmin Evans RN Outcome: Progressing 07/07/2024 0009 by Jazmin Evans, RN Outcome: Progressing Problem: Discharge Planning Goal: Discharge to home or other facility with appropriate resources 07/07/2024352 by Jazmin Evans, RN Outcome: Progressing 07/07/2024344 by Jazmin Evans, RN Outcome: Progressing 07/07/2024123 by Jazmin Evans, RN Outcome: Progressing 07/07/2024 000 by Jazmin Evans, RN Outcome: Progressing Problem: Chronic Conditions and Co-morbidities Goal: Patient's chronic conditions and co-morbidity symptoms are monitored and maintained or improved 07/07/2024352 by Jazmin Evans, RN Outcome: Progressing 07/07/2024344 by Jazmin Evans, RN Outcome: Progressing 07/07/2024123 by Jazmin Evans, RN Outcome: Progressing 07/07/2024 000 by Jazmin Evans, RN Outcome: Progressing Problem: Knowledge Deficit Goal: Patient/family/caregiver demonstrates understanding of disease process, treatment plan, medications, and discharge instructions 07/07/2024352 by Jazmin Evans, RN Outcome: Progressing 07/07/2024344 by Jazmin Evans, RN Outcome: Progressing 07/07/2024123 by Jazmin Evans, RN Outcome: Progressing 07/07/2024 000 by Jazmin Evans, RN Outcome: Progressing Problem: Potential for Compromised Skin Integrity Goal: Skin Integrity is Maintained or Improved 07/07/2024352 by Jazmin Evans, RN Outcome: Progressing 07/07/2024344 by Jazmin Evans, RN Outcome: Progressing 07/07/2024123 by Jazmin Evans, RN Outcome: Progressing 07/07/2024 000 by Jazmin Evans, RN Outcome: Progressing Goal: Nutritional status is improving 07/07/2024352 by Jazmin Evans, RN Outcome: Progressing 07/07/2024344 by Jazmin Evans, RN Outcome: Progressing 07/07/2024123 by Jazmin Evans, RN Outcome: Progressing 07/07/2024 000 by Jazmin Evans, RN Outcome: Progressing Problem: Urinary Incontinence Goal: Perineal skin integrity is maintained or improved 07/07/2024352 by Jazmin Evans, RN Outcome: Progressing 07/07/2024344 by Jazmin Evans, RN Outcome: Progressing 07/07/2024 012 by Jazmin Evans, RN Outcome: Progressing 07/07/2024 000 by Jazmin Evans, RN Outcome: Progressing Problem: Inadequate Coping Goal: Demonstrates ability to cope effectively 07/07/2024 035 by Jazmin Evans, RN Outcome: Progressing 07/07/2024 034 by Jazmin Evans, RN Outcome: Progressing 07/07/2024 012 by Jazmin Evans, RN Outcome: Progressing 07/07/2024 000 by Jazmin Evans, RN Outcome: Progressing Goal: Verbalizes adaptive coping mechanisms 07/07/2024 035 by Jazmin Evans, RN Outcome: Progressing 07/07/2024344 by Jazmin Evans, RN Outcome: Progressing 07/07/2024123 by Jazmin Evans, RN Outcome: Progressing 07/07/2024 000 by Jazmin Evans, RN Outcome: Progressing Goal: Verbalizes personal strengths 07/07/2024352 by Jazmin Evans, RN Outcome: Progressing 07/07/2024 034 by Jazmin Evans, RN Outcome: Progressing 07/07/2024 012 by Jazmin Evans, RN Outcome: Progressing 07/07/2024 000 by Jazmin Evans, RN Outcome: Progressing Problem: Potential for Suicide Goal: Remain free from self harm 07/07/2024352 by Jazmin Evans, RN Outcome: Progressing 07/07/2024 034 by Jazmin Evans, RN Outcome: Progressing 07/07/2024123 by Jazmin Evans, RN Outcome: Progressing 07/07/2024 000 by Jazmin Evans, RN Outcome: Progressing Problem: Discharge Barriers Goal: My discharge needs are met 07/07/2024352 by Jazmin Evans, RN Outcome: Progressing 07/07/2024 034 by Jazmin Evans, RN Outcome: Progressing 07/07/2024 012 by Jazmin Evans, RN Outcome: Progressing 07/07/2024 000 by Jazmin Evans, RN Outcome: Progressing [facility] 07-07-2024 Plan of care note Problem: Pain - Adult Goal: Verbalizes/displays adequate comfort level or baseline comfort level 07/07/2024123 by Jazmin Evans RN Outcome: Progressing 07/07/20248 by Jazmin Evans RN Outcome: Progressing Problem: Safety - Adult Goal: Free from fall injury 07/07/2024123 by Jazmin Evans RN Outcome: Progressing 07/07/20248 by Jazmin Evans RN Outcome: Progressing Problem: Discharge Planning Goal: Discharge to home or other facility with appropriate resources 07/07/2024123 by Jazmin Evans RN Outcome: Progressing 07/07/20248 by Jazmin Evans RN Outcome: Progressing Problem: Chronic Conditions and Co-morbidities Goal: Patient's chronic conditions and co-morbidity symptoms are monitored and maintained or improved 07/07/2024123 by Jazmin Evans RN Outcome: Progressing 07/07/20248 by Jazmin Evans RN Outcome: Progressing Problem: Knowledge Deficit Goal: Patient/family/caregiver demonstrates understanding of disease process, treatment plan, medications, and discharge instructions 07/07/2024123 by Jazmin Evans RN Outcome: Progressing 07/07/20248 by Jazmin Evans RN Outcome: Progressing Problem: Potential for Compromised Skin Integrity Goal: Skin Integrity is Maintained or Improved 07/07/2024123 by Jazmin Evans RN Outcome: Progressing 07/07/20248 by Jazmin Evans RN Outcome: Progressing Goal: Nutritional status is improving 07/07/2024123 by Jazmin Evans RN Outcome: Progressing 07/07/20248 by Jazmin Evans RN Outcome: Progressing Problem: Urinary Incontinence Goal: Perineal skin integrity is maintained or improved 07/07/2024123 by Jazmin Evans RN Outcome: Progressing 07/07/20248 by Jazmin Evans RN Outcome: Progressing Problem: Inadequate Coping Goal: Demonstrates ability to cope effectively 07/07/2024123 by Jazmin Evans RN Outcome: Progressing 07/07/20248 by Jazmin Evans RN Outcome: Progressing Goal: Verbalizes adaptive coping mechanisms 07/07/2024123 by Jazmin Evans RN Outcome: Progressing 07/07/20248 by Jazmin Evans RN Outcome: Progressing Goal: Verbalizes personal strengths 07/07/2024123 by Jazmin Evans RN Outcome: Progressing 07/07/20248 by Jazmin Evans RN Outcome: Progressing Problem: Potential for Suicide Goal: Remain free from self harm 07/07/2024123 by Jazmin Evans RN Outcome: Progressing 07/07/20248 by Jazmin Evans RN Outcome: Progressing Problem: Discharge Barriers Goal: My discharge needs are met 07/07/2024123 by Jazmin Evans RN Outcome: Progressing 07/07/20248 by Jazmin Evans RN Outcome: Progressing [facility] 07-06-2024 Note Formatting of this n ote might be different from the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 Grans % 0.3 0.0 - 2.0 % Neutrophils Absolute 6.1 1.8 - 7.5 10*3/uL Lymphocytes Absolute 2.5 1.0 - 4.3 10*3/uL Monocytes Absolute 0.7 0.0 - 0.9 10*3/uL Eosinophils Absolute 0.1 0.0 - 0.5 10*3/uL Basophils Absolute 0.1 0.0 - 0.2 10*3/uL Immature Grans Absolute 0.0 <0.1 10*3/uL Troponin I Collection Time: 07/04/24 5:35 PM Result Value Ref Range TROPONIN I 0.026 <0.034 ng/mL Lactic acid with reflex Collection Time: 07/04/24 5:35 PM Result Value Ref Range LACTIC ACID 2.6 (H) 0.7 - 2.0 mmol/L Ethanol Collection Time: 07/04/24 5:35 PM Result Value Ref Range ETHANOL IN SER/PLAS 0.032 (H) 0.000 - 0.010 g/dL Beta Hydroxybutyrate Collection Time: 07/04/24 5:35 PM Result Value Ref Range BETA HYDROXYBUTYRATE 20.30 (H) 0.20 - 2.81 mg/dL Blood gas, venous ([place] and [place]) Collection Time: 07/04/24 5:35 PM Result Value Ref Range pH 7.343 7.310 - 7.410 pCO2 32 (L) 40 - 55 mm(Hg) pO2 62 mm(Hg) BASE EXCESS -8.0 (L) -3.0 - 3.0 mmol/L HCO3 17.5 (L) 23.0 - 27.0 mmol/L TCO2 18.0 (L) 24.0 - 28.0 mmol/L O2 Saturation 90.0 (H) 60.0 - 80.0 % Source Of Oxygen Room Air Protime-INR Collection Time: 07/04/24 5:35 PM Result Value Ref Range PROTHROMBIN TIME 12.4 (H) 9.0 - 12.0 s INR 1.1 0.9 - 1.1 Ammonia Collection Time: 07/04/24 5:35 PM Result Value Ref Range AMMONIA 17 9 - 30 umol/L Lipase Collection Time: 07/04/24 5:35 PM Result Value Ref Range LIPASE 133 23 - 300 U/L Comprehensive metabolic panel Collection Time: 07/04/24 5:35 PM Result Value Ref Range SODIUM 124 (L) 135 - 145 mmol/L POTASSIUM 2.7 (L) 3.5 - 5.1 mmol/L CHLORIDE 90 (L) 98 - 107 mmol/L CARBON DIOXIDE 14 (L) 22 - 30 mmol/L ANION GAP 20 (H) 3 - 13 mmol/L UREA NITROGEN 18 9 - 20 mg/dL CREATININE 1.33 (H) 0.66 - 1.25 mg/dL GLUCOSE 86 70 - 100 mg/dL CALCIUM 8.8 8.4 - 10.4 mg/dL AST (SGOT) 38 15 - 46 U/L ALT 17 0 - 49 U/L ALKALINE PHOSPHATASE 68 38 - 126 U/L ALBUMIN 4.1 3.5 - 5.0 g/dL BILIRUBIN, TOTAL 0.8 0.2 - 1.3 mg/dL TOTAL PROTEIN 6.6 6.3 - 8.2 g/dL eGFR 59.7 (L) >60.0 mL/min/1.73m*2 Magnesium Collection Time: 07/04/24 5:35 PM Result Value Ref Range MAGNESIUM 1.5 (L) 1.6 - 2.3 mg/dL SARS-CoV-2, Flu A/B, and RSV Combo Collection Time: 07/04/24 5:37 PM Specimen: Nasopharynx; Swab Result Value Ref Range SARS-CoV-2 Not Detected Not Detected Respiratory Syncytial Virus Not Detected Not Detected Influenza A Not Detected Not Detected Influenza B Not Detected Not Detected ECG 12 lead if not already done by Squad Collection Time: 07/04/24 5:41 PM Result Value Ref Range Heart Rate 96 bpm QRSD Interval 154 ms QT Interval 450 ms QTC Interval 570 ms P [place] 58 degrees QRS [place] -58 degrees T Wave [place] 10 degrees TX Interval 142 ms Lactic acid with reflex Collection Time: 07/04/24 10:02 PM Result Value Ref Range LACTIC ACID 0.6 (L) 0.7 - 2.0 mmol/L Basic metabolic panel Collection Time: 07/05/24 2:46 AM Result Value Ref Range SODIUM 127 (L) 135 - 145 mmol/L POTASSIUM 3.1 (L) 3.5 - 5.1 mmol/L CHLORIDE 100 98 - 107 mmol/L CARBON DIOXIDE 18 (L) 22 - 30 mmol/L UREA NITROGEN 17 9 - 20 mg/dL CREATININE 1.13 0.66 - 1.25 mg/dL GLUCOSE 125 (H) 70 - 100 mg/dL CALCIUM 8.6 8.4 - 10.4 mg/dL ANION GAP 8 3 - 13 mmol/L eGFR 72.6 >60.0 mL/min/1.73m*2 CBC auto differential Collection Time: 07/05/24 2:46 AM Result Value Ref Range Auto WBC 6.7 3.6 - 10.7 10*3/uL RBC 3.66 (L) 4.40 - 5.90 10*6/uL Hemoglobin 10.9 (L) 13.0 - 18.0 g/dL Hematocrit 31.6 (L) 40.0 - 52.0 % MCV 86.3 77.0 - 99.0 fL MCH 29.8 26.0 - 34.0 pg MCHC 34.5 30.5 - 36.0 % RDW 12.8 11.5 - 15.0 % Platelets 187 140 - 440 10*3/uL MPV 9.1 9.0 - 12.7 fL nRBC 0.0 0.0 - 2.0 /100 WBCs Neutrophils Relative 63.7 38.0 - 82.0 % Lymphocytes Relative 24.0 15.0 - 45.0 % Monocytes Relative 9.1 5.0 - 13.0 % Eosinophils Relative 2.1 0.0 - 6.0 % Basophils Relative 0.7 0.0 - 2.0 % Immature Grans % 0.4 0.0 - 2.0 % Neutrophils Absolute 4.3 1.8 - 7.5 10*3/uL Lymphocytes Absolute 1.6 1.0 - 4.3 10*3/uL Monocytes Absolute 0.6 0.0 - 0.9 10*3/uL Eosinophils Absolute 0.1 0.0 - 0.5 10*3/uL Basophils Absolute 0.1 0.0 - 0.2 10*3/uL Immature Grans Absolute 0.0 <0.1 10*3/uL Lactic acid with reflex Collection Time: 07/05/24 2:46 AM Result Value Ref Range LACTIC ACID 0.7 0.7 - 2.0 mmol/L Lipase Collection Time: 07/05/24 2:46 AM Result Value Ref Range LIPASE 134 23 - 300 U/L Gastrointestinal PCR Panel Collection Time: 07/05/24 4:09 AM Specimen: Per Rectum; Stool Result Value Ref Range Campylobacter Not Detected Not Detected Plesiomonas shigelloides Not Detected Not Detected Salmonella Not Detected Not Detected Vibrio species Not Detected Not Detected Vibrio cholerae Not Detected Not Detected Yersinia enterocolitica Not Detected Not Detected Enterotoxigenic E coli (ETEC) Not Detected Not Detected Shiga toxin-producing E coli (STEC) Not Detected Not Detected Shigella/Enteroinvasive E coli (EIEC) Not Detected Not Detected Cryptosporidium Not Detected Not Detected Cyclospora cayetanensis Not Detected Not Detected Entamoeba histolytica Not Detected Not Detected Giardia lamblia Not Detected Not Detected Adenovirus F 40/41 Not Detected Not Detected Astrovirus Not Detected Not Detected Norovirus GI/GII Not Detected Not Detected Rotavirus A Not Detected Not Detected Sapovirus Not Detected Not Detected MEDICATIONS Home Meds Current Outpatient Medications Medication Instructions albuterol 108 (90 Base) MCG/ACT inhaler 2 puffs, Inhalation, Every 6 hours PRN alendronate (FOSAMAX) 70 mg, Oral, Weekly amLODIPine (NORVASC) 2.5 mg, Oral, Daily cyanocobalamin (Vitamin B-12) 1000 MCG/ML injection 1 mL intramuscularly once a month dicyclomine (BENTYL) 20 mg, Oral, 3 times daily famotidine (PEPCID) 20 mg, Oral, 2 times daily fluticasone (Flonase) 50 MCG/ACT nasal spray 1 spray, Each Nostril, Daily PRN gabapentin (Neurontin) 100 MG capsule TAKE TWO CAPSULES BY MOUTH 3 TIMES DAILY hydrOXYzine pamoate (VISTARIL) 25 mg, Oral, Every 8 hours PRN ipratropium-albuterol (Duo-Neb) 0.5-2.5 mg/3 mL nebulizer solution Every 6 hours levothyroxine (Synthroid, Levoxyl) 50 MCG tablet TAKE 1 TABLET BY MOUTH DAILY loperamide (IMODIUM) 2 mg, Oral, Every morning losartan (COZAAR) 100 mg, Oral, Daily magnesium chloride 64 mg, Oral, Daily with breakfast mirtazapine (REMERON) 15 mg, Oral, Nightly nicotine polacrilex (COMMIT) 2 mg, Mouth/Throat, Every 2 hour PRN potassium chloride CR (Klor-Con) 10 MEQ ER tablet 10 mEq, Oral, Every morning sertraline (ZOLOFT) 50 mg, Oral, Daily spironolactone (ALDACTONE) 25 mg, Oral, Every morning tamsulosin (FLOMAX) 0.4 mg, Oral, Daily tiZANidine (ZANAFLEX) 4 mg, Oral, Every 6 hours PRN Scheduled Inpatient Meds amLODIPine, 2.5 mg, Oral, Daily dicyclomine, 20 mg, Oral, TID folic acid 1 mg in dextrose 5 % 50 mL IVPB, 1 mg, IntraVENous, Daily gabapentin, 100 mg, Oral, BID heparin, 5,000 Units, SubCUTAneous, 3 times per day [START ON 07/06/2024] influenza, 0.5 mL, IntraMUSCular, Once ipratropium-albuterol, 3 mL, Nebulization, BID loperamide, 2 mg, Oral, q AM losartan, 100 mg, Oral, Daily magnesium chloride, 1 tablet, Oral, Daily with breakfast mirtazapine, 15 mg, Oral, Nightly pantoprazole, 40 mg, Oral, qAM AC PHENobarbital, 65 mg, IntraVENous, TID spironolactone, 25 mg, Oral, q AM tamsulosin, 0.4 mg, Oral, Daily thiamine, 100 mg, IntraVENous, Daily PRN Inpatient Meds PRN medications: acetaminophen, albuterol, LORazepam, nicotine polacrilex, ondansetron ODT OR ondansetron, polyethylene glycol (PEG) 3350 Continuous Inpatient Infusions sodium chloride 0.9 % with KCl, 125 mL/hr, Last Rate: 125 mL/hr (07/05/24 0208) ASSESSMENT & PLAN Alcohol use disorder Counseled patient on biopsychosocial consequences of substance use. Encouraged professional chemical dependency treatment. Encouraged 12 step meeting attendance. Follow up plan for addiction management discussed with patient: Patient shows interest in [facility] IOP, AA, and naltrexone/Vivitrol options to maintain sobriety post discharge. Alcohol withdrawal Last use of EtOH was on 07/03/2024 at 1800. Phenobarbital taper to manage alcohol withdrawal symptoms. 100 mg IV q for hours for today. Adjunct thiamine/folic acid Gabapentin 300 mg 3 times daily CIWA scores per unit protocol. PRN medications for withdrawal symptom management added. Depression PTSD Continue home medications: Sertraline 50 mg daily Remeron 15 mg nightly Nightmares and associated physical symptoms. Consider addition of prazosin 2 mg nightly. Consulted psychiatry for further treatment and management. Disposition: Discharge anticipated in 4-5 days. Will follow. This patient was staffed with Dr. Perez. Electronically signed by Josefina Newton MD at 8:50 AM. Associated attestation - Alberto Perez MD - 07/06/2024 1:26 PM EDT Patient seen and examined by me yesterday Discussed patient with the resident/fellow/LEENA. Agree with assessment and plan as written. I provided discussion regarding this patient's condition ,chemical dependency, psychiatric and medical history, symptoms and signs , reviewing past detoxification hospitalizations, assessing withdrawal status, evaluating detoxification medications, and discussing lab work and treatment plan ,importance of compliance with the treatment with providing options, as well as documenting on the day of the visit. Alberto Perez MD 07/06/24 1:26 PM [facility] 07-05-2024 History and physical note Attending History and Physical Admit Date: 07/04/2024 PCP: Jani Quezada CHIEF COMPLAINT: Weakness Reason for Admission: Diarrhea History Obtained From: patient HISTORY OF PRESENT ILLNESS: Woody is a 64 y.o. male with past medical history below who presents with chief complaint listed above. The patient has not eaten for at least 5 days, he states his left him. He does drink at least 24 beers a day has had diarrhea which is liquid loose watery no blood melena or hematochezia. Patient currently is being admitted for intoxication, volume depletion, hypokalemia, hyponatremia, metabolic acidosis, probably related to alcohol his lactic acid is elevated at 2.6 with fluid resuscitation did decrease to 0.6. He also was complaining of abdominal pain nausea however no vomiting. Beta hydroxybutyrate level 20.30, ethanol level 0.032. Will admit for further evaluation and management. 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 Nausea and vomiting 12/22/22-12/26/22 admitted at [facility] Pain management Sleep apnea noncompliant with device Past Surgical History: Past Surgical History: Procedure Laterality Date BACK SURGERY x 2 CHOLECYSTECTOMY LAMINECTOMY LAP,CHOLECYSTECTOMY (HISTORICAL) N/A 01/05/2023 WISDOM TOOTH EXTRACTION Social History: Social History Socioeconomic History Marital status: Spouse name: Not on file Number of children: Not on file Years of education: Not on file Highest education level: Not on file Occupational History Not on file Tobacco Use Smoking status: Every Day Types: Cigars Smokeless tobacco: Former Vaping Use Vaping status: Every Day Substances: CBD, canabis Devices: Disposable Substance and Sexual Activity Alcohol use: Yes Alcohol/week: 105.0 standard drinks of alcohol Types: 105 Cans of beer per week Comment: 15-18 beers/day Drug use: Yes Types: Marijuana Comment: daily Sexual activity: Not Currently Other Topics Concern Not on file Social History Narrative Not on file Social Determinants of Health Financial Resource Strain: High Risk (01/15/2024) Overall Financial Resource Strain (CARDIA) Difficulty of Paying Living Expenses: Hard Food Insecurity: Food Insecurity Present (07/05/2024) Hunger Vital Sign Worried About Running Out of Food in the Last Year: Sometimes true Ran Out of Food in the Last Year: Sometimes true Transportation Needs: No Transportation Needs (07/05/2024) PRAPARE - Transportation Lack of Transportation (Medical): No Lack of Transportation (Non-Medical): No Physical Activity: Unknown (01/15/2024) Exercise Vital Sign Days of Exercise per Week: 0 days Minutes of Exercise per Session: Not on file Recent Concern: Physical Activity - Inactive (01/15/2024) Exercise Vital Sign Days of Exercise per Week: 0 days Minutes of Exercise per Session: 0 min Stress: No Stress Concern Present (04/03/2023) [employer] - Occupational Stress Questionnaire Feeling of Stress : Not at all Social Connections: Socially Isolated (12/07/2023) Social Connection and Isolation Panel [NHANES] Frequency of Communication with Friends and Family: Never Frequency of Social Gatherings with Friends and Family: Never Attends Amish Services: Never Active Member of Clubs or Organizations: No Attends Club or Organization Meetings: Not on file Marital Status: Living with partner Intimate Partner Violence: Not At Risk (07/05/2024) Humiliation, Afraid, Rape, and Kick questionnaire Fear of Current or Ex-Partner: No Emotionally Abused: No Physically Abused: No Sexually Abused: No Housing Stability: Low Risk (07/05/2024) Housing Stability Vital Sign Unable to Pay for Housing in the Last Year: No Number of Times Moved in the Last Year: 1 Homeless in the Last Year: No Family History: Family History Problem Relation Name Age of Onset Depression Mother Depression Maternal Grandmother Medications Prior to Admission: No current facility-administered medications on file prior to encounter. Current Outpatient Medications on File Prior to Encounter Medication Sig Dispense Refill amLODIPine (Norvasc) 2.5 MG tablet Take 2.5 mg by mouth daily. dicyclomine (Bentyl) 20 MG tablet Take 20 mg by mouth 3 times daily. gabapentin (Neurontin) 100 MG capsule TAKE TWO CAPSULES BY MOUTH 3 TIMES DAILY loperamide (Imodium) 2 MG capsule Take 2 mg by mouth every morning. potassium chloride CR (Klor-Con) 10 MEQ ER tablet Take 10 mEq by mouth every morning. spironolactone (Aldactone) 25 MG tablet Take 25 mg by mouth every morning. [DISCONTINUED] pravastatin (Pravachol) 40 MG tablet 1 tab(s) orally once a day (at bedtime) 90 days albuterol 108 (90 Base) MCG/ACT inhaler Inhale 2 puffs every 6 hours as needed for shortness of breath or wheezing. alendronate (Fosamax) 70 MG tablet Take 70 mg by mouth once a week. cyanocobalamin (Vitamin B-12) 1000 MCG/ML injection 1 mL intramuscularly once a month famotidine (Pepcid) 20 MG tablet Take 1 tablet (20 mg) by mouth 2 times daily. 60 tablet 0 fluticasone (Flonase) 50 MCG/ACT nasal spray Administer 1 spray into each nostril daily as needed. hydrOXYzine pamoate (Vistaril) 25 MG capsule Take 1 capsule (25 mg) by mouth every 8 hours as needed for anxiety for up to 10 days. 30 capsule 0 ipratropium-albuterol (Duo-Neb) 0.5-2.5 mg/3 mL nebulizer solution every 6 hours. levothyroxine (Synthroid, Levoxyl) 50 MCG tablet TAKE 1 TABLET BY MOUTH DAILY (Patient taking differently: Take 75 mcg by mouth every morning (before breakfast).) 30 tablet 0 losartan (Cozaar) 100 MG tablet Take 1 tablet (100 mg) by mouth daily. Do not start before February 15, 2023. 30 tablet 11 magnesium chloride 64 MG EC tablet Take 1 tablet (64 mg) by mouth daily (with breakfast). 60 tablet 0 mirtazapine (Remeron) 15 MG tablet Take 1 tablet (15 mg) by mouth Nightly. 30 tablet 1 nicotine polacrilex (Commit) 2 MG lozenge Dissolve 1 lozenge (2 mg) in the mouth every 2 hours as needed for smoking cessation. 100 lozenge 0 sertraline (Zoloft) 50 MG tablet Take 1 tablet (50 mg) by mouth daily. 30 tablet 1 tamsulosin (Flomax) 0.4 MG 24 hr capsule Take 0.4 mg by mouth daily. tiZANidine (Zanaflex) 4 MG tablet Take 1 tablet (4 mg) by mouth every 6 hours as needed for muscle spasms for up to 10 days. 30 tablet 0 [DISCONTINUED] diphenhydrAMINE-zinc acetate (BENADryl) cream Apply topically 3 times daily as needed for itching. 28 g 1 [DISCONTINUED] folic acid (Folvite) 1 MG tablet Take 1 tablet (1 mg) by mouth daily. 30 tablet 0 [DISCONTINUED] ketoconazole (NIZOral) 2 % shampoo EVERY THREE DAYS [DISCONTINUED] niacin 100 MG tablet Every 24 hours. [DISCONTINUED] nitroglycerin (Nitrostat) 0.4 MG SL tablet 1 tab(s) sublingually every 5 minutes x 3 doses prn [DISCONTINUED] pantoprazole (ProtoNix) 40 MG EC tablet Take 1 tablet (40 mg) by mouth in the morning and 1 tablet (40 mg) in the evening. Take before meals. Do not crush, chew, or split.. [DISCONTINUED] thiamine (Vitamin B-1) 100 MG tablet Take 1 tablet (100 mg) by mouth daily. Do not start before April 16, 2023. 30 tablet 0 Allergies: Allergies Allergen Reactions Allopurinol Other Breaks out in blisters Codeine Nausea Only Lactose Penicillin G Swelling REVIEW OF SYSTEMS: Constitutional: Negative for fever, chills, activity change and unexpected weight change. HEENT: Negative for congestion, postnasal drip and sneezing. Eyes: Negative for itching and visual disturbance. Respiratory: Negative for apnea, cough, choking, chest tightness, shortness of breath, wheezing and stridor. Cardiovascular: Negative for chest pain. Gastrointestinal: Negative for nausea, vomiting, abdominal pain, diarrhea and blood in stool. Genitourinary: Negative for dysuria, frequency and flank pain. Musculoskeletal: Negative for myalgias and joint swelling. Skin: Negative for rash. Neurological: Negative for dizziness, tremors, seizures, syncope, facial asymmetry, speech difficulty, weakness, numbness and headaches. Hematological: Negative for adenopathy. Psychiatric/Behavioral: Negative for suicidal ideas, behavioral problems, self-injury and dysphoric mood. Vitals: BP 127/69 (BP Location: Right arm, Patient Position: Lying) Pulse 89 Temp (!) 35.9 C (96.6 F) (Temporal) Resp 16 Ht 5' 10" (1.778 m) Wt 164 lb 0.4 oz (74.4 kg) SpO2 98% BMI 23.53 kg/m BMI Classification: Normal Weight (BMI 18.5-24.9) Pulse Ox: SpO2 Av.2 % Min: 96 % Max: 99 % Supplemental O2: PHYSICAL EXAM: Physical Exam General Appearance is that of a debilitated disheveled middle-aged gentleman in acute distress alert and oriented at the time of examination however, is slow to respond. The head was normal no evidence of any trauma neck was supple there was no JVD HJR or lymphadenopathy no evidence of organomegaly Lungs reveal rare crackles at both bases otherwise clear there were no wheezes noted. There were no rhonchi. Heart rhythm regular and rapid S1/S2 heart sounds are distant there were no extrasystoles premature systoles clicks or rubs. The abdomen was soft there was mid epigastric subxiphoid and right upper quadrant tenderness to palpation no rebound tenderness or guarding the liver edge could not be palpated. Lower abdominal examination was otherwise unremarkable. Range of motion of both upper and lower extremities appear to be symmetrical there are no lateralizing signs skin is otherwise warm and dry to touch. There were no ecchymosis or petechial lesions noted in either the upper or the lower extremities bilaterally. DATA: CBC: Recent Labs 07/04/24 1735 WBC 9.6 RBC 3.84* HGB 11.7* HCT 32.5* MCV 84.6 RDW 12.8 PLT 227 BMP: Recent Labs 07/04/24 1735 NA 124* K 2.7* CL 90* CO2 14* BUN 18 CREATININE 1.33* GLUCOSE 86 CALCIUM 8.8 ANIONGAP 20* LIVER PROFILE: Recent Labs 07/04/24 1735 AST 38 ALT 17 BILITOT 0.8 ALKPHOS 68 PROT 6.6 PT/INR: Recent Labs 07/04/24 1735 PROTIME 12.4* INR 1.1 CARDIAC ENZYMES: Recent Labs 07/04/24 1735 TROPONINI 0.026 Procalcitonin: No results found for: "PROCAL" Urine Culture: Results for orders placed or performed during the hospital encounter of 12/22/22 Urine culture Specimen: Urine, Clean Catch Result Value Ref Range Urine Culture No growth (<1,000 CFU/mL) COVID-19 PCR: No results for input(s): "COVID19" in the last 72 hours. I reviewed: [x] laboratory results [x] radiographic results At the time of today's encounter. Pt was advised of the results. Data: (CAT1) Reviewed 3 or more notes from different specialty or health system (each=1). (LOW: 2x CAT1 or independent historian MOD: 3x CAT1 or 1x CAT3 EXTENSIVE: 3x CAT1 and 1x CAT3) Assessment Discussed management with the ED provider and agree with hospitalization. Acute, acute on chronic, unstable/uncontrolled chronic problems/diagnoses: Alcohol intoxication with metabolic acidosis, the patient did have a resting tremor at the time of examination. Hypokalemia Hyponatremia [place] Tobacco dependency by history. Stable chronic problems affecting care, new non-acute diagnoses: Diarrhea probably result of alcohol usage. Labile hypertension Insomnia Plan As a result of the above findings & factors, the following mgmt was pursued: -Thiamine 100 mg IV x 3 days, folic acid 1 mg IV x 3 days, IV fluids, potassium replacement. Monitor sodium levels, may require phenobarbital IV as well as Ativan as needed - am labs, replace lytes prn - PT/OT/CM/SW - delirium precautions: increase activity - DVT prophylaxis: enoxaparin and encourage ambulation Complexity: Acute illness or injury posing a threat to life or body function (HIGH). Risk: Use/consideration of a high risk treatment or study: IV controlled substances (HIGH). Advance Directive: Prior Anticipated Discharge - Date -07/08/2024 - Location - Home - Pending the following -treatment results 30 Total time spent (which include face to face and non face to face encounters) : 30 minutes. Extended Emergency Contact Information Primary Emergency Contact: Kingsley Carl Mobile Relation: Significant Other [employer] Woody Ni : 1960 Primary Care Physician: Jani Quezada The patient and/or family/surrogate voluntarily agreed to participate in ACP services. Patient s cognitive capacity: Alert and oriented x 3 Code Status: [X_] [FULL CODE - Continue all advanced life support: CPR,intubation,invasive procedures] [_] [DNR-[facility] - DO NOT do CPR, intubation] [_] [DNR-[facility] - Comfort care only] [_] DNR form [was/was not] signed Summary of discussion: The patient health care POA/ surrogate is the following: Not available. [Condition that instigated the ACP on this DOS, relevant PMH, functional status, goals of care, and whom this was discussed with including names and relationship to the patient, and any relevant advance care documentation discussion] I answered all the patient/family questions that I could within the range and scope of the current medical situation. We discussed the medical conditions, risks, benefits, outcomes, and goals of care at this time for the patient's medical issues at hand in the face of the patient's chronic issues and current presentation. Total time spent: 30 alert and oriented x 3 minutes were spent discussing the patient's resuscitation status, advance care planning, and end of life care, with patient and/or family/surrogate. Virgilio Almanza MD [facility] [employer] Work Phone: 07-05-2024 Note [employer] [facility] 07-05-2024 History and physical note Attending History and Physical Admit Date: 07/04/2024 PCP: Jani Quezada CHIEF COMPLAINT: Weakness Reason for Admission: Diarrhea History Obtained From: patient HISTORY OF PRESENT ILLNESS: Woody is a 64 y.o. male with past medical history below who presents with chief complaint listed above. The patient has not eaten for at least 5 days, he states his left him. He does drink at least 24 beers a day has had diarrhea which is liquid loose watery no blood melena or hematochezia. Patient currently is being admitted for intoxication, volume depletion, hypokalemia, hyponatremia, metabolic acidosis, probably related to alcohol his lactic acid is elevated at 2.6 with fluid resuscitation did decrease to 0.6. He also was complaining of abdominal pain nausea however no vomiting. Beta hydroxybutyrate level 20.30, ethanol level 0.032. Will admit for further evaluation and management. 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 Nausea and vomiting 12/22/22-12/26/22 admitted at [facility] Pain management Sleep apnea noncompliant with device Past Surgical History: Past Surgical History: Procedure Laterality Date BACK SURGERY x 2 CHOLECYSTECTOMY LAMINECTOMY LAP,CHOLECYSTECTOMY (HISTORICAL) N/A 01/05/2023 WISDOM TOOTH EXTRACTION Social History: Social History Socioeconomic History Marital status: Spouse name: Not on file Number of children: Not on file Years of education: Not on file Highest education level: Not on file Occupational History Not on file Tobacco Use Smoking status: Every Day Types: Cigars Smokeless tobacco: Former Vaping Use Vaping status: Every Day Substances: CBD, canabis Devices: Disposable Substance and Sexual Activity Alcohol use: Yes Alcohol/week: 105.0 standard drinks of alcohol Types: 105 Cans of beer per week Comment: 15-18 beers/day Drug use: Yes Types: Marijuana Comment: daily Sexual activity: Not Currently Other Topics Concern Not on file Social History Narrative Not on file Social Determinants of Health Financial Resource Strain: High Risk (01/15/2024) Overall Financial Resource Strain (CARDIA) Difficulty of Paying Living Expenses: Hard Food Insecurity: Food Insecurity Present (07/05/2024) Hunger Vital Sign Worried About Running Out of Food in the Last Year: Sometimes true Ran Out of Food in the Last Year: Sometimes true Transportation Needs: No Transportation Needs (07/05/2024) PRAPARE - Transportation Lack of Transportation (Medical): No Lack of Transportation (Non-Medical): No Physical Activity: Unknown (01/15/2024) Exercise Vital Sign Days of Exercise per Week: 0 days Minutes of Exercise per Session: Not on file Recent Concern: Physical Activity - Inactive (01/15/2024) Exercise Vital Sign Days of Exercise per Week: 0 days Minutes of Exercise per Session: 0 min Stress: No Stress Concern Present (04/03/2023) [employer] [place] [employer] - Occupational Stress Questionnaire Feeling of Stress : Not at all Social Connections: Socially Isolated (12/07/2023) Social Connection and Isolation Panel [NHANES] Frequency of Communication with Friends and Family: Never Frequency of Social Gatherings with Friends and Family: Never Attends [employer] Services: Never Active Member of Clubs or Organizations: No Attends Club or Organization Meetings: Not on file Marital Status: Living with partner Intimate Partner Violence: Not At Risk (07/05/2024) Humiliation, Afraid, Rape, and Kick questionnaire Fear of Current or Ex-Partner: No Emotionally Abused: No Physically Abused: No Sexually Abused: No Housing Stability: Low Risk (07/05/2024) Housing Stability Vital Sign Unable to Pay for Housing in the Last Year: No Number of Times Moved in the Last Year: 1 Homeless in the Last Year: No Family History: Family History Problem Relation Name Age of Onset Depression Mother Depression Maternal Grandmother Medications Prior to Admission: No current facility-administered medications on file prior to encounter. Current Outpatient Medications on File Prior to Encounter Medication Sig Dispense Refill amLODIPine (Norvasc) 2.5 MG tablet Take 2.5 mg by mouth daily. dicyclomine (Bentyl) 20 MG tablet Take 20 mg by mouth 3 times daily. gabapentin (Neurontin) 100 MG capsule TAKE TWO CAPSULES BY MOUTH 3 TIMES DAILY loperamide (Imodium) 2 MG capsule Take 2 mg by mouth every morning. potassium chloride CR (Klor-Con) 10 MEQ ER tablet Take 10 mEq by mouth every morning. spironolactone (Aldactone) 25 MG tablet Take 25 mg by mouth every morning. [DISCONTINUED] pravastatin (Pravachol) 40 MG tablet 1 tab(s) orally once a day (at bedtime) 90 days albuterol 108 (90 Base) MCG/ACT inhaler Inhale 2 puffs every 6 hours as needed for shortness of breath or wheezing. alendronate (Fosamax) 70 MG tablet Take 70 mg by mouth once a week. cyanocobalamin (Vitamin B-12) 1000 MCG/ML injection 1 mL intramuscularly once a month famotidine (Pepcid) 20 MG tablet Take 1 tablet (20 mg) by mouth 2 times daily. 60 tablet 0 fluticasone (Flonase) 50 MCG/ACT nasal spray Administer 1 spray into each nostril daily as needed. hydrOXYzine pamoate (Vistaril) 25 MG capsule Take 1 capsule (25 mg) by mouth every 8 hours as needed for anxiety for up to 10 days. 30 capsule 0 ipratropium-albuterol (Duo-Neb) 0.5-2.5 mg/3 mL nebulizer solution every 6 hours. levothyroxine (Synthroid, Levoxyl) 50 MCG tablet TAKE 1 TABLET BY MOUTH DAILY (Patient taking differently: Take 75 mcg by mouth every morning (before breakfast).) 30 tablet 0 losartan (Cozaar) 100 MG tablet Take 1 tablet (100 mg) by mouth daily. Do not start before February 15, 2023. 30 tablet 11 magnesium chloride 64 MG EC tablet Take 1 tablet (64 mg) by mouth daily (with breakfast). 60 tablet 0 mirtazapine (Remeron) 15 MG tablet Take 1 tablet (15 mg) by mouth Nightly. 30 tablet 1 nicotine polacrilex (Commit) 2 MG lozenge Dissolve 1 lozenge (2 mg) in the mouth every 2 hours as needed for smoking cessation. 100 lozenge 0 sertraline (Zoloft) 50 MG tablet Take 1 tablet (50 mg) by mouth daily. 30 tablet 1 tamsulosin (Flomax) 0.4 MG 24 hr capsule Take 0.4 mg by mouth daily. tiZANidine (Zanaflex) 4 MG tablet Take 1 tablet (4 mg) by mouth every 6 hours as needed for muscle spasms for up to 10 days. 30 tablet 0 [DISCONTINUED] diphenhydrAMINE-zinc acetate (BENADryl) cream Apply topically 3 times daily as needed for itching. 28 g 1 [DISCONTINUED] folic acid (Folvite) 1 MG tablet Take 1 tablet (1 mg) by mouth daily. 30 tablet 0 [DISCONTINUED] ketoconazole (NIZOral) 2 % shampoo EVERY THREE DAYS [DISCONTINUED] niacin 100 MG tablet Every 24 hours. [DISCONTINUED] nitroglycerin (Nitrostat) 0.4 MG SL tablet 1 tab(s) sublingually every 5 minutes x 3 doses prn [DISCONTINUED] pantoprazole (ProtoNix) 40 MG EC tablet Take 1 tablet (40 mg) by mouth in the morning and 1 tablet (40 mg) in the evening. Take before meals. Do not crush, chew, or split.. [DISCONTINUED] thiamine (Vitamin B-1) 100 MG tablet Take 1 tablet (100 mg) by mouth daily. Do not start before April 16, 2023. 30 tablet 0 Allergies: Allergies Allergen Reactions Allopurinol Other Breaks out in blisters Codeine Nausea Only Lactose Penicillin G Swelling REVIEW OF SYSTEMS: Constitutional: Negative for fever, chills, activity change and unexpected weight change. HEENT: Negative for congestion, postnasal drip and sneezing. Eyes: Negative for itching and visual disturbance. Respiratory: Negative for apnea, cough, choking, chest tightness, shortness of breath, wheezing and stridor. Cardiovascular: Negative for chest pain. Gastrointestinal: Negative for nausea, vomiting, abdominal pain, diarrhea and blood in stool. Genitourinary: Negative for dysuria, frequency and flank pain. Musculoskeletal: Negative for myalgias and joint swelling. Skin: Negative for rash. Neurological: Negative for dizziness, tremors, seizures, syncope, facial asymmetry, speech difficulty, weakness, numbness and headaches. Hematological: Negative for adenopathy. Psychiatric/Behavioral: Negative for suicidal ideas, behavioral problems, self-injury and dysphoric mood. Vitals: BP 127/69 (BP Location: Right arm, Patient Position: Lying) Pulse 89 Temp (!) 35.9 C (96.6 F) (Temporal) Resp 16 Ht 5' 10" (1.778 m) Wt 164 lb 0.4 oz (74.4 kg) SpO2 98% BMI 23.53 kg/m BMI Classification: Normal Weight (BMI 18.5-24.9) Pulse Ox: SpO2 Av.2 % Min: 96 % Max: 99 % Supplemental O2: PHYSICAL EXAM: Physical Exam General Appearance is that of a debilitated disheveled middle-aged gentleman in acute distress alert and oriented at the time of examination however, is slow to respond. The head was normal no evidence of any trauma neck was supple there was no JVD HJR or lymphadenopathy no evidence of organomegaly Lungs reveal rare crackles at both bases otherwise clear there were no wheezes noted. There were no rhonchi. Heart rhythm regular and rapid S1/S2 heart sounds are distant there were no extrasystoles premature systoles clicks or rubs. The abdomen was soft there was mid epigastric subxiphoid and right upper quadrant tenderness to palpation no rebound tenderness or guarding the liver edge could not be palpated. Lower abdominal examination was otherwise unremarkable. Range of motion of both upper and lower extremities appear to be symmetrical there are no lateralizing signs skin is otherwise warm and dry to touch. There were no ecchymosis or petechial lesions noted in either the upper or the lower extremities bilaterally. DATA: CBC: Recent Labs 07/04/24 1735 WBC 9.6 RBC 3.84* HGB 11.7* HCT 32.5* MCV 84.6 RDW 12.8 PLT 227 BMP: Recent Labs 07/04/24 1735 NA 124* K 2.7* CL 90* CO2 14* BUN 18 CREATININE 1.33* GLUCOSE 86 CALCIUM 8.8 ANIONGAP 20* LIVER PROFILE: Recent Labs 07/04/24 1735 AST 38 ALT 17 BILITOT 0.8 ALKPHOS 68 PROT 6.6 PT/INR: Recent Labs 07/04/24 1735 PROTIME 12.4* INR 1.1 CARDIAC ENZYMES: Recent Labs 07/04/24 1735 TROPONINI 0.026 Procalcitonin: No results found for: "PROCAL" Urine Culture: Results for orders placed or performed during the hospital encounter of 12/22/22 Urine culture Specimen: Urine, Clean Catch Result Value Ref Range Urine Culture No growth (<1,000 CFU/mL) COVID-19 PCR: No results for input(s): "COVID19" in the last 72 hours. I reviewed: [x] laboratory results [x] radiographic results At the time of today's encounter. Pt was advised of the results. Data: (CAT1) Reviewed 3 or more notes from different specialty or health system (each=1). (LOW: 2x CAT1 or independent historian MOD: 3x CAT1 or 1x CAT3 EXTENSIVE: 3x CAT1 and 1x CAT3) Assessment Discussed management with the ED provider and agree with hospitalization. Acute, acute on chronic, unstable/uncontrolled chronic problems/diagnoses: Alcohol intoxication with metabolic acidosis, the patient did have a resting tremor at the time of examination. Hypokalemia Hyponatremia DENNYS Tobacco dependency by history. Stable chronic problems affecting care, new non-acute diagnoses: Diarrhea probably result of alcohol usage. Labile hypertension Insomnia Plan As a result of the above findings & factors, the following mgmt was pursued: -Thiamine 100 mg IV x 3 days, folic acid 1 mg IV x 3 days, IV fluids, potassium replacement. Monitor sodium levels, may require phenobarbital IV as well as Ativan as needed - am labs, replace lytes prn - PT/OT/CM/SW - delirium precautions: increase activity - DVT prophylaxis: enoxaparin and encourage ambulation Complexity: Acute illness or injury posing a threat to life or body function (HIGH). Risk: Use/consideration of a high risk treatment or study: IV controlled substances (HIGH). Advance Directive: Prior Anticipated Discharge - Date -07/08/2024 - Location - Home - Pending the following -treatment results 30 Total time spent (which include face to face and non face to face encounters) : 30 minutes. Extended Emergency Contact Information Primary Emergency Contact: Kingsley Carl Mobile Relation: Significant Other [employer] Woody Ni : 1960 Primary Care Physician: Jani Quezada The patient and/or family/surrogate voluntarily agreed to participate in ACP services. Patient s cognitive capacity: Alert and oriented x 3 Code Status: [X_] [FULL CODE - Continue all advanced life support: CPR,intubation,invasive procedures] [_] [DNR-[facility] - DO NOT do CPR, intubation] [_] [DNR-[facility] - Comfort care only] [_] DNR form [was/was not] signed Summary of discussion: The patient health care POA/ surrogate is the following: Not available. [Condition that instigated the ACP on this DOS, relevant PMH, functional status, goals of care, and whom this was discussed with including names and relationship to the patient, and any relevant advance care documentation discussion] I answered all the patient/family questions that I could within the range and scope of the current medical situation. We discussed the medical conditions, risks, benefits, outcomes, and goals of care at this time for the patient's medical issues at hand in the face of the patient's chronic issues and current presentation. Total time spent: 30 alert and oriented x 3 minutes were spent discussing the patient's resuscitation status, advance care planning, and end of life care, with patient and/or family/surrogate. Virgilio Almanza MD Division of Hospitalist Medicine [facility] documented in this encounter [facility] 07-05-2024 Plan of care note Problem: Pain - Adult Goal: Verbalizes/displays adequate comfort level or baseline comfort level Outcome: Progressing Problem: Safety - Adult Goal: Free from fall injury Outcome: Progressing Problem: Discharge Planning Goal: Discharge to home or other facility with appropriate resources Outcome: Progressing Problem: Chronic Conditions and Co-morbidities Goal: Patient's chronic conditions and co-morbidity symptoms are monitored and maintained or improved Outcome: Progressing [facility] 07-04-2024 Emergency department [facility]. Pt signed transfer consent. Emilee Gonzalez RN 07/04/242243 [facility] 07-04-2024 Emergency department Note Report to Diana Wooten [facility]. Pt signed transfer consent. Emilee Gonzalez RN 07/04/24 2244 Attempted to call report to 3W. On hold x 6 min. Will try again Emilee Gonzalez RN 07/04/24 2218 EMERGENCY DEPARTMENT ENCOUNTER Pt Name: Woody Ni Birthdate 1960 Date of evaluation: 07/04/2024 ED Provider: Ashley Bell MD CHIEF COMPLAINT Chief Complaint Patient presents with Dizziness Vomiting Alcohol Problem HISTORY OF PRESENT ILLNESS (Location/Symptom, Timing/Onset, Context/Setting, Quality, Duration, Modifying Factors, Severity) Note limiting factors. I wore appropriate PPE for the entirety of this encounter. HPI Woody Ni is a 64 y.o. who presents to the emergency department chief complaint of feeling unwell for the last 5 days. Patient states that he feels dizzy when he moves his head. States it is transient before improving. Patient endorses drinking a case or 12 tall boy, but ice daily. States that recently he has been only to drink a couple. Reportedly lives by himself. States that he is had nausea, vomiting, diarrhea. Denies chest pain or shortness of breath. Denies abdominal pain. Noted medically and detoxed in April of this year, about 5 months prior. Nursing Notes were reviewed. Outside historians: EMS REVIEW OF SYSTEMS Review of Systems Constitutional: Negative for fever. HENT: Negative for sore throat. Eyes: Negative for visual disturbance. Respiratory: Negative for cough and shortness of breath. Cardiovascular: Negative for chest pain. Gastrointestinal: Positive for diarrhea, nausea and vomiting. Negative for abdominal pain. Genitourinary: Negative for dysuria. Musculoskeletal: Negative for neck pain and neck stiffness. Skin: Negative for wound. Neurological: Positive for dizziness. Negative for headaches. Pertinent positives and negatives as per HPI PAST MEDICAL HISTORY 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 Nausea and vomiting 12/22/22-12/26/22 admitted at [facility] Pain management Sleep apnea noncompliant with device SURGICAL HISTORY Past Surgical History: Procedure Laterality Date BACK SURGERY x 2 CHOLECYSTECTOMY LAMINECTOMY LAP,CHOLECYSTECTOMY (HISTORICAL) N/A 01/05/2023 WISDOM TOOTH EXTRACTION CURRENT MEDICATIONS Current Discharge Medication List CONTINUE these medications which have NOT CHANGED Details amLODIPine (Norvasc) 2.5 MG tablet Take 2.5 mg by mouth daily. dicyclomine (Bentyl) 20 MG tablet Take 20 mg by mouth 3 times daily. gabapentin (Neurontin) 100 MG capsule TAKE TWO CAPSULES BY MOUTH 3 TIMES DAILY loperamide (Imodium) 2 MG capsule Take 2 mg by mouth every morning. potassium chloride CR (Klor-Con) 10 MEQ ER tablet Take 10 mEq by mouth every morning. spironolactone (Aldactone) 25 MG tablet Take 25 mg by mouth every morning. albuterol 108 (90 Base) MCG/ACT inhaler Inhale 2 puffs every 6 hours as needed for shortness of breath or wheezing. alendronate (Fosamax) 70 MG tablet Take 70 mg by mouth once a week. cyanocobalamin (Vitamin B-12) 1000 MCG/ML injection 1 mL intramuscularly once a month famotidine (Pepcid) 20 MG tablet Take 1 tablet (20 mg) by mouth 2 times daily. Qty: 60 tablet, Refills: 0 fluticasone (Flonase) 50 MCG/ACT nasal spray Administer 1 spray into each nostril daily as needed. hydrOXYzine pamoate (Vistaril) 25 MG capsule Take 1 capsule (25 mg) by mouth every 8 hours as needed for anxiety for up to 10 days. Qty: 30 capsule, Refills: 0 ipratropium-albuterol (Duo-Neb) 0.5-2.5 mg/3 mL nebulizer solution every 6 hours. levothyroxine (Synthroid, Levoxyl) 50 MCG tablet TAKE 1 TABLET BY MOUTH DAILY Qty: 30 tablet, Refills: 0 Comments: RX MIAN:0 DISPS MIAN:0 losartan (Cozaar) 100 MG tablet Take 1 tablet (100 mg) by mouth daily. Do not start before February 15, 2023. Qty: 30 tablet, Refills: 11 magnesium chloride 64 MG EC tablet Take 1 tablet (64 mg) by mouth daily (with breakfast). Qty: 60 tablet, Refills: 0 mirtazapine (Remeron) 15 MG tablet Take 1 tablet (15 mg) by mouth Nightly. Qty: 30 tablet, Refills: 1 nicotine polacrilex (Commit) 2 MG lozenge Dissolve 1 lozenge (2 mg) in the mouth every 2 hours as needed for smoking cessation. Qty: 100 lozenge, Refills: 0 sertraline (Zoloft) 50 MG tablet Take 1 tablet (50 mg) by mouth daily. Qty: 30 tablet, Refills: 1 tamsulosin (Flomax) 0.4 MG 24 hr capsule Take 0.4 mg by mouth daily. tiZANidine (Zanaflex) 4 MG tablet Take 1 tablet (4 mg) by mouth every 6 hours as needed for muscle spasms for up to 10 days. Qty: 30 tablet, Refills: 0 ALLERGIES Allopurinol, Codeine, Lactose, and Penicillin g FAMILY HISTORY Family History Problem Relation Name Age of Onset Depression Mother Depression Maternal Grandmother SOCIAL HISTORY Social History Socioeconomic History Marital status: Tobacco Use Smoking status: Every Day Types: Cigars Smokeless tobacco: Former Vaping Use Vaping status: Every Day Substances: CBD, canabis Devices: Disposable Substance and Sexual Activity Alcohol use: Yes Alcohol/week: 105.0 standard drinks of alcohol Types: 105 Cans of beer per week Comment: 15-18 beers/day Drug use: Yes Types: Marijuana Comment: daily Sexual activity: Not Currently Social Determinants of Health Financial Resource Strain: High Risk (01/15/2024) Overall Financial Resource Strain (CARDIA) Difficulty of Paying Living Expenses: Hard Food Insecurity: Food Insecurity Present (07/05/2024) Hunger Vital Sign Worried About Running Out of Food in the Last Year: Sometimes true Ran Out of Food in the Last Year: Sometimes true Transportation Needs: No Transportation Needs (07/05/2024) PRAPARE - Transportation Lack of Transportation (Medical): No Lack of Transportation (Non-Medical): No Physical Activity: Unknown (01/15/2024) Exercise Vital Sign Days of Exercise per Week: 0 days Recent Concern: Physical Activity - Inactive (01/15/2024) Exercise Vital Sign Days of Exercise per Week: 0 days Minutes of Exercise per Session: 0 min Stress: No Stress Concern Present (04/03/2023) [place] [employer] - Occupational Stress Questionnaire Feeling of Stress : Not at all Social Connections: Socially Isolated (12/07/2023) Social Connection and Isolation Panel [NHANES] Frequency of Communication with Friends and Family: Never Frequency of Social Gatherings with Friends and Family: Never Attends Amish Services: Never Active Member of Clubs or Organizations: No Marital Status: Living with partner Intimate Partner Violence: Not At Risk (07/05/2024) Humiliation, Afraid, Rape, and Kick questionnaire Fear of Current or Ex-Partner: No Emotionally Abused: No Physically Abused: No Sexually Abused: No Housing Stability: Low Risk (07/05/2024) Housing Stability Vital Sign Unable to Pay for Housing in the Last Year: No Number of Times Moved in the Last Year: 1 Homeless in the Last Year: No PHYSICAL EXAM ED Triage Vitals [07/04/24 1721] Temp Heart Rate Resp BP 36.8 C (98.2 F) 100 16 98/59 SpO2 Temp Source Heart Rate Source Patient Position 96 % Oral Monitor Lying BP Location FiO2 (%) Right arm -- Physical Exam Vitals and nursing note reviewed. Constitutional: General: He is not in acute distress. Comments: 64-year-old male HENT: Head: Normocephalic and atraumatic. Mouth/Throat: Mouth: Mucous membranes are dry. Pharynx: Oropharynx is clear. Comments: No tongue fasciculations. Eyes: Extraocular Movements: Extraocular movements intact. Pupils: Pupils are equal, round, and reactive to light. Cardiovascular: Rate and Rhythm: Regular rhythm. Tachycardia present. Pulmonary: Effort: Pulmonary effort is normal. Abdominal: Palpations: Abdomen is soft. Tenderness: There is no abdominal tenderness. Musculoskeletal: Cervical back: Normal range of motion. Skin: General: Skin is warm and dry. Neurological: General: No focal deficit present. Mental Status: He is alert and oriented to person, place, and time. Sensory: No sensory deficit. Motor: No weakness. Gait: Gait normal. Comments: Able to lift all 4 extremities against gravity. Bilateral lower leg weakness. No focal neurological deficit appreciated on exam. No significant tremors or tongue fasciculations on exam. DIAGNOSTIC RESULTS RADIOLOGY (Per Emergency Physician): Interpretation per the Radiologist below, if available at the time of this note: CT head wo IV contrast Final Result No acute intracranial abnormality. 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 Report Dictated on Electronically Signed By: Barbara Henriquez MD Electronically Signed Date/Time: 07/04/2024 6:28 PM EDT XR chest 1 view Final Result No acute cardiopulmonary disease. Report Dictated on Electronically Signed By: Marjan Ruth MD Electronically Signed Date/Time: 07/04/2024 6:00 PM EDT US abdomen complete (Results Pending) LABS: Labs Reviewed CBC WITH AUTO DIFFERENTIAL - Abnormal Result Value Auto WBC 9.6 RBC 3.84 (*) Hemoglobin 11.7 (*) Hematocrit 32.5 (*) MCV 84.6 MCH 30.5 MCHC 36.0 RDW 12.8 Platelets 227 MPV 8.9 (*) nRBC 0.0 Neutrophils Relative 63.7 Lymphocytes Relative 26.3 Monocytes Relative 7.5 Eosinophils Relative 1.5 Basophils Relative 0.7 Immature Grans % 0.3 Neutrophils Absolute 6.1 Lymphocytes Absolute 2.5 Monocytes Absolute 0.7 Eosinophils Absolute 0.1 Basophils Absolute 0.1 Immature Grans Absolute 0.0 LACTIC ACID WITH REFLEX - Abnormal LACTIC ACID 2.6 (*) ETHANOL - Abnormal ETHANOL IN SER/PLAS 0.032 (*) Narrative: NOTE: This result is for medical treatment only. Analysis performed using non-forensic procedures. BETA HYDROXYBUTYRATE - Abnormal BETA HYDROXYBUTYRATE 20.30 (*) BLOOD GAS, VENOUS (SWR AND SHC) - Abnormal pH 7.343 pCO2 32 (*) pO2 62 BASE EXCESS -8.0 (*) HCO3 17.5 (*) TCO2 18.0 (*) O2 Saturation 90.0 (*) Source Of Oxygen Room Air PROTHROMBIN TIME - Abnormal PROTHROMBIN TIME 12.4 (*) INR 1.1 COMPREHENSIVE METABOLIC PANEL - Abnormal SODIUM 124 (*) POTASSIUM 2.7 (*) CHLORIDE 90 (*) CARBON DIOXIDE 14 (*) ANION GAP 20 (*) UREA NITROGEN 18 CREATININE 1.33 (*) GLUCOSE 86 CALCIUM 8.8 AST (SGOT) 38 ALT 17 ALKALINE PHOSPHATASE 68 ALBUMIN 4.1 BILIRUBIN, TOTAL 0.8 TOTAL PROTEIN 6.6 eGFR 59.7 (*) MAGNESIUM - Abnormal MAGNESIUM 1.5 (*) LACTIC ACID WITH REFLEX - Abnormal LACTIC ACID 0.6 (*) BASIC METABOLIC PANEL - Abnormal SODIUM 127 (*) POTASSIUM 3.1 (*) CHLORIDE 100 CARBON DIOXIDE 18 (*) UREA NITROGEN 17 CREATININE 1.13 GLUCOSE 125 (*) CALCIUM 8.6 ANION GAP 8 eGFR 72.6 CBC WITH AUTO DIFFERENTIAL - Abnormal Auto WBC 6.7 RBC 3.66 (*) Hemoglobin 10.9 (*) Hematocrit 31.6 (*) MCV 86.3 MCH 29.8 MCHC 34.5 RDW 12.8 Platelets 187 MPV 9.1 nRBC 0.0 Neutrophils Relative 63.7 Lymphocytes Relative 24.0 Monocytes Relative 9.1 Eosinophils Relative 2.1 Basophils Relative 0.7 Immature Grans % 0.4 Neutrophils Absolute 4.3 Lymphocytes Absolute 1.6 Monocytes Absolute 0.6 Eosinophils Absolute 0.1 Basophils Absolute 0.1 Immature Grans Absolute 0.0 SARS-COV-2, FLU A/B, AND RSV COMBO - Normal SARS-CoV-2 Not Detected Respiratory Syncytial Virus Not Detected Influenza A Not Detected Influenza B Not Detected Narrative: Methodology: real-time, RT-PCR The SARS-CoV-2, Flu A/B, and RSV Combo assay is intended for in vitro diagnostic use under the FDA Emergency Use Authorization (EUA). This test has not been FDA cleared or approved. In compliance with this authorization, please visit www.fda.gov/media/506080/download or www.fda.gov/media/794087/download to access the applicable information sheets. GASTROINTESTINAL PCR PANEL - Normal Campylobacter Not Detected Plesiomonas shigelloides Not Detected Salmonella Not Detected Vibrio species Not Detected Vibrio cholerae Not Detected Yersinia enterocolitica Not Detected Enterotoxigenic E coli (ETEC) Not Detected Shiga toxin-producing E coli (STEC) Not Detected Shigella/Enteroinvasive E coli (EIEC) Not Detected Cryptosporidium Not Detected Cyclospora cayetanensis Not Detected Entamoeba histolytica Not Detected Giardia lamblia Not Detected Adenovirus F 40/41 Not Detected Astrovirus Not Detected Norovirus GI/GII Not Detected Rotavirus A Not Detected Sapovirus Not Detected Narrative: A positive Norovirus result on the Film Array GI panel should be interpreted in the context of the patient's history and clinical picture. If results are not consistent, result should be confirmed with a Norovirus specific assay. Methodology: Multiplex PCR TROPONIN I - Normal TROPONIN I 0.026 Narrative: Patients with high levels of Biotin oral intake (ie >5 mg/day) may have falsely decreased Troponin levels. AMMONIA - Normal AMMONIA 17 LIPASE - Normal LIPASE 133 LACTIC ACID WITH REFLEX - Normal LACTIC ACID 0.7 LIPASE - Normal LIPASE 134 COMPREHENSIVE METABOLIC PANEL WITH MG REFLEX Narrative: The following orders were created for panel order Comprehensive Metabolic Panel with Mg Reflex. Procedure Abnormality Status --------- ------ Comprehensive metabolic p...[[id number]] Abnormal Final result Please view results for these tests on the individual orders. All other labs were within normal range or not returned as of this dictation. EMERGENCY DEPARTMENT COURSE and DIFFERENTIAL DIAGNOSIS/MDM: Vitals: Vitals: 07/04/24 2207 07/04/24 2309 07/05/24 0028 07/05/24 0538 BP: 121/68 125/70 127/69 137/71 BP Location: Right arm Right arm Patient Position: Lying Lying Pulse: 86 89 89 88 Resp: 14 17 16 16 Temp: (!) 35.9 C (96.6 F) 36.1 C (96.9 F) TempSrc: Temporal Temporal SpO2: 96% 99% 98% 99% Weight: 74.4 kg (164 lb 0.4 oz) Height: 1.778 m (5' 10") Medications tamsulosin (Flomax) 24 hr capsule 0.4 mg (has no administration in time range) albuterol 108 (90 Base) MCG/ACT inhaler 2 puff (has no administration in time range) ipratropium-albuterol (Duo-Neb) 0.5-2.5 mg/3 mL nebulizer solution 3 mL (has no administration in time range) magnesium chloride EC tablet 64 mg (has no administration in time range) amLODIPine (Norvasc) tablet 2.5 mg (has no administration in time range) dicyclomine (Bentyl) tablet 20 mg (has no administration in time range) gabapentin (Neurontin) capsule 100 mg (100 mg Oral Given 07/05/24 0208) loperamide (Imodium) capsule 2 mg (has no administration in time range) spironolactone (Aldactone) tablet 25 mg (has no administration in time range) mirtazapine (Remeron) tablet 15 mg (15 mg Oral Given 07/05/24207) nicotine polacrilex (Commit) lozenge 2 mg (has no administration in time range) losartan (Cozaar) tablet 100 mg (has no administration in time range) sodium chloride 0.9 % with KCl 20 mEq/L infusion (125 mL/hr IntraVENous New Bag 07/05/24207) folic acid 1 mg in dextrose 5 % 50 mL IVPB (has no administration in time range) PHENobarbital (Luminal) injection 65 mg (has no administration in time range) LORazepam (Ativan) tablet 1 mg (1 mg Oral Given 07/05/24557) acetaminophen (Tylenol) tablet 500 mg (has no administration in time range) ondansetron ODT (Zofran-ODT) disintegrating tablet 4 mg (has no administration in time range) Or ondansetron (Zofran) injection 4 mg (has no administration in time range) polyethylene glycol (PEG) 3350 (Miralax) packet 17 g (has no administration in time range) influenza vac tiss-cult subunt (Flucelvax) injection 0.5 mL (has no administration in time range) heparin injection 5,000 Units (5,000 Units SubCUTAneous Given 07/05/24557) thiamine (Vitamin B1) injection 100 mg (has no administration in time range) pantoprazole (ProtoNix) EC tablet 40 mg (40 mg Oral Given 07/05/24557) sodium chloride 0.9 % bolus 1,000 mL (0 mL IntraVENous Stopped 07/04/241842) thiamine (Vitamin B1) injection 100 mg (100 mg IntraVENous Given 07/04/241742) magnesium sulfate IVPB premix 2,000 mg (0 mg IntraVENous Stopped 07/04/242048) potassium chloride IVPB 10 mEq (0 mEq IntraVENous Stopped 07/04/242305) dextrose 5 % and sodium chloride 0.9 % infusion (125 mL/hr IntraVENous New Bag 07/04/241848) LORazepam (Ativan) injection 1 mg (1 mg IntraVENous Given 07/04/242032) Patient evaluated for his generalized malaise and feeling unwell. Patient overall is nontoxic-appearing he does not appear to be withdrawing from alcohol. Blood pressure is at lower limits. Regular rate around 100 bpm. No clinical signs of withdrawal. Patient clinically is dehydrated. Concern for failure to thrive. Blood work concerning for an anion gap metabolic acidosis. Normal blood glucose level. [place] to be consistent with a suspected alcoholic, starvation ketosis. Patient treated with thiamine. Started on D5 normal saline drip. Patient has electrolyte abnormalities with hypokalemia and hypomagnesia. Provided intravenous replacement. Patient discussed with hospitalist and admitted for further evaluation monitoring. Patient elected for [facility] as he expressed interest in further addiction medicine, detoxification assistance once medically cleared. SCREENINGS Cheryl Coma Scale Best Eye Response: Spontaneous Best Verbal Response: Oriented Best Motor Response: Follows commands Cheryl Coma Scale Score: 15 ED Course as of 07/05/24 0745 ThuJul 04, [id number] eGFR(!): 59.7 DENNYS [SP] 182 Carbon Dioxide (CO2)(!): 14 [SP] 182 ANION GAP(!): 20 [SP] 1828 Anion gap metabolic acidosis [SP] 182 PH: 7.343 [SP] 1828 HCO3(!): 17.5 [SP] 1828 pCO2(!): 32 [SP] 1828 Respiratory compensation [SP] 1828 POTASSIUM(!): 2.7 [SP] 1828 SODIUM(!): 124 [SP] 1828 CHLORIDE(!): 90 [SP] 1828 BETA HYDROXYBUTYRATE(!): 20.30 [SP] 1828 LACTIC ACID(!): 2.6 [SP] 1828 GLUCOSE: 86 [SP] 1828 Suspected alcoholic starvation ketosis. [SP] 1829 ETHANOL IN SER/PLAS(!): 0.032 Patient currently does not appear to be withdrawing. Blood pressure within normal limits. [SP] 1829 TROPONIN I: 0.026 [SP] 1829 LACTIC ACID(!): 2.6 [SP] 1836 SARS-CoV-2, Flu A/B, and RSV Combo Not detected [SP] 185 POTASSIUM(!): 2.7 [SP] 1855 MAGNESIUM(!): 1.5 [SP] ED Course User Index [SP] Ashley Bell MD Diagnoses as of 07/05/24 0745 Metabolic acidosis, increased anion gap Ketosis (HCC) Alcohol use Hypokalemia Hypomagnesemia MDM elements: The patient presented with chief complaint of generalized malaise with nausea and vomiting. The differential diagnosis associated with this patient's presentation includes ACS, pancreatitis, gastritis, gastroenteritis, electrolyte abnormalities, viral syndrome. Our workup consisted of ordering/reviewing: EKG, blood work x-ray, respiratory test. To aid in management, I performed an independent interpretation of EKG; see my interpretation elsewhere in the chart. I discussed their care with Admitting team . The patient will be Admitted. Patient is in agreement with this plan. PROCEDURES: Unless otherwise noted below, none Procedures CRITICAL CARE TIME Total Critical Care time was at least 20 minutes, excluding separately reportable procedures. There was a high probability of clinically significant/life threatening deterioration in the patient's condition which required my urgent intervention. FINAL IMPRESSION 1. Metabolic acidosis, increased anion gap 2. Ketosis (HCC) 3. Alcohol use 4. Hypokalemia 5. Hypomagnesemia DISPOSITION Admit 07/04/2024 06:56:55 PM PATIENT REFERRED TO: No follow-up provider specified. DISCHARGE MEDICATIONS: Current Discharge Medication List (Comment: Please note this report has been produced using speech recognition software and may contain errors related to that system including errors in grammar, punctuation, and spelling, as well as words and phrases that may be inappropriate. If there are any questions or concerns please feel free to contact the dictating provider for clarification.) Ashley Bell MD (electronically signed) Emergency Medicine Provider Ashley Bell MD 07/05/24 0747 Pt to ER by [facility] with complaints of vomiting, diarrhea, dizziness, general weakness, and ETOH use. States has not felt well x 5 days. Generalized abd pain. States he is not eating and is drinking less ETOH than usual. Had "4 tall boys and some beers" today. Denies fever, chills, chest pain, shortness of breath, cough. Denies being around anyone else who has been sick recently. Pt alert and oriented x 4. Skin warm and dry. Respirations even and unlabored. Call light in reach. Side rails up x 2 for safety. Pt to [facility] via [facility]. Pt a&ox4. VSS at transfer documented in this encounter [facility] 07-04-2024 Emergency department Note Attempted to call report to 3W. On hold x 6 min. Will try again Emilee Gonzalez RN 07/04/248 [facility] 07-04-2024 Note NOTE: This result is for medical treatment only. Analysis performed using non-forensic procedures. [facility] 07-04-2024 Emergency department Triage note Pt to ER by [facility] with complaints of vomiting, diarrhea, dizziness, general weakness, and ETOH use. States has not felt well x 5 days. Generalized abd pain. States he is not eating and is drinking less ETOH than usual. Had "4 tall boys and some beers" today. Denies fever, chills, chest pain, shortness of breath, cough. Denies being around anyone else who has been sick recently. Pt alert and oriented x 4. Skin warm and dry. Respirations even and unlabored. Call light in reach. Side rails up x 2 for safety. [facility] 07-04-2024 Emergency department Triage note Pt to [facility] via [facility]. Pt a&ox4. VSS at transfer [facility] 07-04-2024 Physician Emergency department Note EMERGENCY DEPARTMENT ENCOUNTER Pt Name: Woody Ni Birthdate 1960 Date of evaluation: 07/04/2024 ED Provider: Ashley Bell MD CHIEF COMPLAINT Chief Complaint Patient presents with Dizziness Vomiting Alcohol Problem HISTORY OF PRESENT ILLNESS (Location/Symptom, Timing/Onset, Context/Setting, Quality, Duration, Modifying Factors, Severity) Note limiting factors. I wore appropriate PPE for the entirety of this encounter. HPI Woody Ni is a 64 y.o. who presents to the emergency department chief complaint of feeling unwell for the last 5 days. Patient states that he feels dizzy when he moves his head. States it is transient before improving. Patient endorses drinking a case or 12 tall boy, but ice daily. States that recently he has been only to drink a couple. Reportedly lives by himself. States that he is had nausea, vomiting, diarrhea. Denies chest pain or shortness of breath. Denies abdominal pain. Noted medically and detoxed in April of this year, about 5 months prior. Nursing Notes were reviewed. Outside historians: EMS REVIEW OF SYSTEMS Review of Systems Constitutional: Negative for fever. HENT: Negative for sore throat. Eyes: Negative for visual disturbance. Respiratory: Negative for cough and shortness of breath. Cardiovascular: Negative for chest pain. Gastrointestinal: Positive for diarrhea, nausea and vomiting. Negative for abdominal pain. Genitourinary: Negative for dysuria. Musculoskeletal: Negative for neck pain and neck stiffness. Skin: Negative for wound. Neurological: Positive for dizziness. Negative for headaches. Pertinent positives and negatives as per HPI PAST MEDICAL HISTORY 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 Nausea and vomiting 12/22/22-12/26/22 admitted at [facility] Pain management Sleep apnea noncompliant with device SURGICAL HISTORY Past Surgical History: Procedure Laterality Date BACK SURGERY x 2 CHOLECYSTECTOMY LAMINECTOMY LAP,CHOLECYSTECTOMY (HISTORICAL) N/A 01/05/2023 WISDOM TOOTH EXTRACTION CURRENT MEDICATIONS Current Discharge Medication List CONTINUE these medications which have NOT CHANGED Details amLODIPine (Norvasc) 2.5 MG tablet Take 2.5 mg by mouth daily. dicyclomine (Bentyl) 20 MG tablet Take 20 mg by mouth 3 times daily. gabapentin (Neurontin) 100 MG capsule TAKE TWO CAPSULES BY MOUTH 3 TIMES DAILY loperamide (Imodium) 2 MG capsule Take 2 mg by mouth every morning. potassium chloride CR (Klor-Con) 10 MEQ ER tablet Take 10 mEq by mouth every morning. spironolactone (Aldactone) 25 MG tablet Take 25 mg by mouth every morning. albuterol 108 (90 Base) MCG/ACT inhaler Inhale 2 puffs every 6 hours as needed for shortness of breath or wheezing. alendronate (Fosamax) 70 MG tablet Take 70 mg by mouth once a week. cyanocobalamin (Vitamin B-12) 1000 MCG/ML injection 1 mL intramuscularly once a month famotidine (Pepcid) 20 MG tablet Take 1 tablet (20 mg) by mouth 2 times daily. Qty: 60 tablet, Refills: 0 fluticasone (Flonase) 50 MCG/ACT nasal spray Administer 1 spray into each nostril daily as needed. hydrOXYzine pamoate (Vistaril) 25 MG capsule Take 1 capsule (25 mg) by mouth every 8 hours as needed for anxiety for up to 10 days. Qty: 30 capsule, Refills: 0 ipratropium-albuterol (Duo-Neb) 0.5-2.5 mg/3 mL nebulizer solution every 6 hours. levothyroxine (Synthroid, Levoxyl) 50 MCG tablet TAKE 1 TABLET BY MOUTH DAILY Qty: 30 tablet, Refills: 0 Comments: RX MIAN:0 DISPS MIAN:0 losartan (Cozaar) 100 MG tablet Take 1 tablet (100 mg) by mouth daily. Do not start before February 15, 2023. Qty: 30 tablet, Refills: 11 magnesium chloride 64 MG EC tablet Take 1 tablet (64 mg) by mouth daily (with breakfast). Qty: 60 tablet, Refills: 0 mirtazapine (Remeron) 15 MG tablet Take 1 tablet (15 mg) by mouth Nightly. Qty: 30 tablet, Refills: 1 nicotine polacrilex (Commit) 2 MG lozenge Dissolve 1 lozenge (2 mg) in the mouth every 2 hours as needed for smoking cessation. Qty: 100 lozenge, Refills: 0 sertraline (Zoloft) 50 MG tablet Take 1 tablet (50 mg) by mouth daily. Qty: 30 tablet, Refills: 1 tamsulosin (Flomax) 0.4 MG 24 hr capsule Take 0.4 mg by mouth daily. tiZANidine (Zanaflex) 4 MG tablet Take 1 tablet (4 mg) by mouth every 6 hours as needed for muscle spasms for up to 10 days. Qty: 30 tablet, Refills: 0 ALLERGIES Allopurinol, Codeine, Lactose, and Penicillin g FAMILY HISTORY Family History Problem Relation Name Age of Onset Depression Mother Depression Maternal Grandmother SOCIAL HISTORY Social History Socioeconomic History Marital status: Tobacco Use Smoking status: Every Day Types: Cigars Smokeless tobacco: Former Vaping Use Vaping status: Every Day Substances: CBD, canabis Devices: Disposable Substance and Sexual Activity Alcohol use: Yes Alcohol/week: 105.0 standard drinks of alcohol Types: 105 Cans of beer per week Comment: 15-18 beers/day Drug use: Yes Types: Marijuana Comment: daily Sexual activity: Not Currently Social Determinants of Health Financial Resource Strain: High Risk (01/15/2024) Overall Financial Resource Strain (CARDIA) Difficulty of Paying Living Expenses: Hard Food Insecurity: Food Insecurity Present (07/05/2024) Hunger Vital Sign Worried About Running Out of Food in the Last Year: Sometimes true Ran Out of Food in the Last Year: Sometimes true Transportation Needs: No Transportation Needs (07/05/2024) PRAPARE - Transportation Lack of Transportation (Medical): No Lack of Transportation (Non-Medical): No Physical Activity: Unknown (01/15/2024) Exercise Vital Sign Days of Exercise per Week: 0 days Recent Concern: Physical Activity - Inactive (01/15/2024) Exercise Vital Sign Days of Exercise per Week: 0 days Minutes of Exercise per Session: 0 min Stress: No Stress Concern Present (04/03/2023) [place] [employer] - Occupational Stress Questionnaire Feeling of Stress : Not at all Social Connections: Socially Isolated (12/07/2023) Social Connection and Isolation Panel [NHANES] Frequency of Communication with Friends and Family: Never Frequency of Social Gatherings with Friends and Family: Never Attends Amish Services: Never Active Member of Clubs or Organizations: No Marital Status: Living with partner Intimate Partner Violence: Not At Risk (07/05/2024) Humiliation, Afraid, Rape, and Kick questionnaire Fear of Current or Ex-Partner: No Emotionally Abused: No Physically Abused: No Sexually Abused: No Housing Stability: Low Risk (07/05/2024) Housing Stability Vital Sign Unable to Pay for Housing in the Last Year: No Number of Times Moved in the Last Year: 1 Homeless in the Last Year: No PHYSICAL EXAM ED Triage Vitals [07/04/24 1721] Temp Heart Rate Resp BP 36.8 C (98.2 F) 100 16 98/59 SpO2 Temp Source Heart Rate Source Patient Position 96 % Oral Monitor Lying BP Location FiO2 (%) Right arm -- Physical Exam Vitals and nursing note reviewed. Constitutional: General: He is not in acute distress. Comments: 64-year-old male HENT: Head: Normocephalic and atraumatic. Mouth/Throat: Mouth: Mucous membranes are dry. Pharynx: Oropharynx is clear. Comments: No tongue fasciculations. Eyes: Extraocular Movements: Extraocular movements intact. Pupils: Pupils are equal, round, and reactive to light. Cardiovascular: Rate and Rhythm: Regular rhythm. Tachycardia present. Pulmonary: Effort: Pulmonary effort is normal. Abdominal: Palpations: Abdomen is soft. Tenderness: There is no abdominal tenderness. Musculoskeletal: Cervical back: Normal range of motion. Skin: General: Skin is warm and dry. Neurological: General: No focal deficit present. Mental Status: He is alert and oriented to person, place, and time. Sensory: No sensory deficit. Motor: No weakness. Gait: Gait normal. Comments: Able to lift all 4 extremities against gravity. Bilateral lower leg weakness. No focal neurological deficit appreciated on exam. No significant tremors or tongue fasciculations on exam. DIAGNOSTIC RESULTS RADIOLOGY (Per Emergency Physician): Interpretation per the Radiologist below, if available at the time of this note: CT head wo IV contrast Final Result No acute intracranial abnormality. 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 Report Dictated on Electronically Signed By: Barbara Henriquez MD Electronically Signed Date/Time: 07/04/2024 6:28 PM EDT XR chest 1 view Final Result No acute cardiopulmonary disease. Report Dictated on Electronically Signed By: Marjan Ruth MD Electronically Signed Date/Time: 07/04/2024 6:00 PM EDT US abdomen complete (Results Pending) LABS: Labs Reviewed CBC WITH AUTO DIFFERENTIAL - Abnormal Result Value Auto WBC 9.6 RBC 3.84 (*) Hemoglobin 11.7 (*) Hematocrit 32.5 (*) MCV 84.6 MCH 30.5 MCHC 36.0 RDW 12.8 Platelets 227 MPV 8.9 (*) nRBC 0.0 Neutrophils Relative 63.7 Lymphocytes Relative 26.3 Monocytes Relative 7.5 Eosinophils Relative 1.5 Basophils Relative 0.7 Immature Grans % 0.3 Neutrophils Absolute 6.1 Lymphocytes Absolute 2.5 Monocytes Absolute 0.7 Eosinophils Absolute 0.1 Basophils Absolute 0.1 Immature Grans Absolute 0.0 LACTIC ACID WITH REFLEX - Abnormal LACTIC ACID 2.6 (*) ETHANOL - Abnormal ETHANOL IN SER/PLAS 0.032 (*) Narrative: NOTE: This result is for medical treatment only. Analysis performed using non-forensic procedures. BETA HYDROXYBUTYRATE - Abnormal BETA HYDROXYBUTYRATE 20.30 (*) BLOOD GAS, VENOUS (SWR AND SHC) - Abnormal pH 7.343 pCO2 32 (*) pO2 62 BASE EXCESS -8.0 (*) HCO3 17.5 (*) TCO2 18.0 (*) O2 Saturation 90.0 (*) Source Of Oxygen Room Air PROTHROMBIN TIME - Abnormal PROTHROMBIN TIME 12.4 (*) INR 1.1 COMPREHENSIVE METABOLIC PANEL - Abnormal SODIUM 124 (*) POTASSIUM 2.7 (*) CHLORIDE 90 (*) CARBON DIOXIDE 14 (*) ANION GAP 20 (*) UREA NITROGEN 18 CREATININE 1.33 (*) GLUCOSE 86 CALCIUM 8.8 AST (SGOT) 38 ALT 17 ALKALINE PHOSPHATASE 68 ALBUMIN 4.1 BILIRUBIN, TOTAL 0.8 TOTAL PROTEIN 6.6 eGFR 59.7 (*) MAGNESIUM - Abnormal MAGNESIUM 1.5 (*) LACTIC ACID WITH REFLEX - Abnormal LACTIC ACID 0.6 (*) BASIC METABOLIC PANEL - Abnormal SODIUM 127 (*) POTASSIUM 3.1 (*) CHLORIDE 100 CARBON DIOXIDE 18 (*) UREA NITROGEN 17 CREATININE 1.13 GLUCOSE 125 (*) CALCIUM 8.6 ANION GAP 8 eGFR 72.6 CBC WITH AUTO DIFFERENTIAL - Abnormal Auto WBC 6.7 RBC 3.66 (*) Hemoglobin 10.9 (*) Hematocrit 31.6 (*) MCV 86.3 MCH 29.8 MCHC 34.5 RDW 12.8 Platelets 187 MPV 9.1 nRBC 0.0 Neutrophils Relative 63.7 Lymphocytes Relative 24.0 Monocytes Relative 9.1 Eosinophils Relative 2.1 Basophils Relative 0.7 Immature Grans % 0.4 Neutrophils Absolute 4.3 Lymphocytes Absolute 1.6 Monocytes Absolute 0.6 Eosinophils Absolute 0.1 Basophils Absolute 0.1 Immature Grans Absolute 0.0 SARS-COV-2, FLU A/B, AND RSV COMBO - Normal SARS-CoV-2 Not Detected Respiratory Syncytial Virus Not Detected Influenza A Not Detected Influenza B Not Detected Narrative: Methodology: real-time, RT-PCR The SARS-CoV-2, Flu A/B, and RSV Combo assay is intended for in vitro diagnostic use under the FDA Emergency Use Authorization (EUA). This test has not been FDA cleared or approved. In compliance with this authorization, please visit www.fda.gov/media/492802/download or www.fda.gov/media/109363/download to access the applicable information sheets. GASTROINTESTINAL PCR PANEL - Normal Campylobacter Not Detected Plesiomonas shigelloides Not Detected Salmonella Not Detected Vibrio species Not Detected Vibrio cholerae Not Detected Yersinia enterocolitica Not Detected Enterotoxigenic E coli (ETEC) Not Detected Shiga toxin-producing E coli (STEC) Not Detected Shigella/Enteroinvasive E coli (EIEC) Not Detected Cryptosporidium Not Detected Cyclospora cayetanensis Not Detected Entamoeba histolytica Not Detected Giardia lamblia Not Detected Adenovirus F 40/41 Not Detected Astrovirus Not Detected Norovirus GI/GII Not Detected Rotavirus A Not Detected Sapovirus Not Detected Narrative: A positive Norovirus result on the Film Array GI panel should be interpreted in the context of the patient's history and clinical picture. If results are not consistent, result should be confirmed with a Norovirus specific assay. Methodology: Multiplex PCR TROPONIN I - Normal TROPONIN I 0.026 Narrative: Patients with high levels of Biotin oral intake (ie >5 mg/day) may have falsely decreased Troponin levels. AMMONIA - Normal AMMONIA 17 LIPASE - Normal LIPASE 133 LACTIC ACID WITH REFLEX - Normal LACTIC ACID 0.7 LIPASE - Normal LIPASE 134 COMPREHENSIVE METABOLIC PANEL WITH MG REFLEX Narrative: The following orders were created for panel order Comprehensive Metabolic Panel with Mg Reflex. Procedure Abnormality Status --------- ------ Comprehensive metabolic p...[[id number]] Abnormal Final result Please view results for these tests on the individual orders. All other labs were within normal range or not returned as of this dictation. EMERGENCY DEPARTMENT COURSE and DIFFERENTIAL DIAGNOSIS/MDM: Vitals: Vitals: 07/04/24 2207 07/04/24 2309 07/05/24 0028 07/05/24 0538 BP: 121/68 125/70 127/69 137/71 BP Location: Right arm Right arm Patient Position: Lying Lying Pulse: 86 89 89 88 Resp: Temp: (!) 35.9 C (96.6 F) 36.1 C (96.9 F) TempSrc: Temporal Temporal SpO2: 96% 99% 98% 99% Weight: 74.4 kg (164 lb 0.4 oz) Height: 1.778 m (5' 10") Medications tamsulosin (Flomax) 24 hr capsule 0.4 mg (has no administration in time range) albuterol 108 (90 Base) MCG/ACT inhaler 2 puff (has no administration in time range) ipratropium-albuterol (Duo-Neb) 0.5-2.5 mg/3 mL nebulizer solution 3 mL (has no administration in time range) magnesium chloride EC tablet 64 mg (has no administration in time range) amLODIPine (Norvasc) tablet 2.5 mg (has no administration in time range) dicyclomine (Bentyl) tablet 20 mg (has no administration in time range) gabapentin (Neurontin) capsule 100 mg (100 mg Oral Given 07/05/24207) loperamide (Imodium) capsule 2 mg (has no administration in time range) spironolactone (Aldactone) tablet 25 mg (has no administration in time range) mirtazapine (Remeron) tablet 15 mg (15 mg Oral Given 07/05/24 020) nicotine polacrilex (Commit) lozenge 2 mg (has no administration in time range) losartan (Cozaar) tablet 100 mg (has no administration in time range) sodium chloride 0.9 % with KCl 20 mEq/L infusion (125 mL/hr IntraVENous New Bag 07/05/24207) folic acid 1 mg in dextrose 5 % 50 mL IVPB (has no administration in time range) PHENobarbital (Luminal) injection 65 mg (has no administration in time range) LORazepam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 partner Intimate Partner Violence: Not At Risk (04/22/2024) Humiliation, Afraid, Rape, and Kick questionnaire Fear of Current or Ex-Partner: No Emotionally Abused: No Physically Abused: No Sexually Abused: No Housing Stability: Low Risk (01/15/2024) Housing Stability Vital Sign Unable to Pay for Housing in the Last Year: No Number of Places Lived in the Last Year: 1 Unstable Housing in the Last Year: No Recent Concern: Housing Stability - High Risk (10/21/2023) Housing Stability Vital Sign Unable to Pay for Housing in the Last Year: Yes Number of Places Lived in the Last Year: 1 Unstable Housing in the Last Year: No 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 Nausea and vomiting 12/22/22-12/26/22 admitted at [facility] Pain management Sleep apnea noncompliant with device Past Surgical History: Procedure Laterality Date BACK SURGERY x 2 CHOLECYSTECTOMY LAMINECTOMY LAP,CHOLECYSTECTOMY (HISTORICAL) N/A 01/05/2023 WISDOM TOOTH EXTRACTION Family History Problem Relation Name Age of Onset Depression Mother Depression Maternal Grandmother Labs Recent Results (from the past 48 hour(s)) POCT glucose meter Collection Time: 04/27/24 9:08 PM Result Value Ref Range Glucose 107 (H) 70 - 100 mg/dL POCT glucose meter Collection Time: 04/28/24 8:32 AM Result Value Ref Range Glucose 96 70 - 100 mg/dL POCT glucose meter Collection Time: 04/28/24 11:58 AM Result Value Ref Range Glucose 78 70 - 100 mg/dL POCT glucose meter Collection Time: 04/28/24 7:33 PM Result Value Ref Range Glucose 106 (H) 70 - 100 mg/dL POCT glucose meter Collection Time: 04/29/24 7:34 AM Result Value Ref Range Glucose 103 (H) 70 - 100 mg/dL POCT glucose meter Collection Time: 04/29/24 12:01 PM Result Value Ref Range Glucose 130 (H) 70 - 100 mg/dL POCT glucose meter Collection Time: 04/29/24 4:07 PM Result Value Ref Range Glucose 115 (H) 70 - 100 mg/dL Medications Home Meds: Prior to Admission medications Medication Sig Start Date End Date Taking? Authorizing Provider albuterol 108 (90 Base) MCG/ACT inhaler Inhale 2 puffs every 6 hours as needed for shortness of breath or wheezing. Yes Historical Provider, diphenhydrAMINE-zinc acetate (BENADryl) cream Apply topically 3 times daily as needed for itching. 01/26/24 01/25/25 Yes Jose Maria Abad MD hydrOXYzine HCl (Atarax) 25 MG tablet Take 25 mg by mouth every 6 hours as needed for itching. Yes Historical Provider, ipratropium-albuterol (Duo-Neb) 0.5-2.5 mg/3 mL nebulizer solution every 6 hours. Yes Historical Provider, magnesium chloride 64 MG EC tablet Take 1 tablet (64 mg) by mouth daily (with breakfast). 01/21/24 Yes Ethel Anna, DO niacin 100 MG tablet Every 24 hours. Yes Historical Provider, pantoprazole (ProtoNix) 40 MG EC tablet Take 1 tablet (40 mg) by mouth in the morning and 1 tablet (40 mg) in the evening. Take before meals. Do not crush, chew, or split.. 10/27/23 10/26/24 Yes Kacie Benz, DO tamsulosin (Flomax) 0.4 MG 24 hr capsule Take 0.4 mg by mouth daily. 01/27/22 Yes Historical Provider, thiamine (Vitamin B-1) 100 MG tablet Take 1 tablet (100 mg) by mouth daily. Do not start before April 16, 2023. 04/16/23 Yes Ced Koenig MD alendronate (Fosamax) 70 MG tablet Take 70 mg by mouth once a week. 05/19/17 Historical Provider, cyanocobalamin (Vitamin B-12) 1000 MCG/ML injection 1 mL intramuscularly once a month Historical Provider, diphenhydrAMINE (BENADryl) 50 MG capsule Take 1 capsule (50 mg) by mouth every 6 hours as needed for itching. 01/26/24 02/25/24 Jose Maria Abad MD famotidine (Pepcid) 20 MG tablet Take 1 tablet (20 mg) by mouth 2 times daily. 04/15/23 04/14/24 Ced Koenig MD fluticasone (Flonase) 50 MCG/ACT nasal spray Administer 1 spray into each nostril daily as needed. 04/27/17 Historical ProviderMD hydrOXYzine pamoate (Vistaril) 25 MG capsule Take 1 capsule (25 mg) by mouth every 8 hours as needed for anxiety for up to 10 days. 01/26/24 02/05/24 Jose Maria Abad MD ketoconazole (NIZOral) 2 % shampoo EVERY THREE DAYS 11/18/19 Historical Provider, levothyroxine (Synthroid, Levoxyl) 50 MCG tablet TAKE 1 TABLET BY MOUTH DAILY Patient taking differently: Take 75 mcg by mouth every morning (before breakfast). 06/06/22 01/18/24 Nicolas Qiu losartan (Cozaar) 100 MG tablet Take 1 tablet (100 mg) by mouth daily. Do not start before February 15, 2023. 02/15/23 02/15/24 Kacie Benz DO mirtazapine (Remeron) 15 MG tablet Take 1 tablet (15 mg) by mouth Nightly. 04/25/24 06/24/24 Carmen Jeronimo MD nicotine (Nicoderm, Step 1) 21 MG/24HR patch Place 1 patch on the skin daily. 10/27/23 11/26/23 Kacie Benz DO nicotine polacrilex (Commit) 2 MG lozenge Dissolve 1 lozenge (2 mg) in the mouth every 2 hours as needed for smoking cessation. 01/20/24 02/19/24 Ethel Anna, nitroglycerin (Nitrostat) 0.4 MG SL tablet 1 tab(s) sublingually every 5 minutes x 3 doses prn Historical Provider, sertraline (Zoloft) 50 MG tablet Take 1 tablet (50 mg) by mouth daily. 04/25/24 06/24/24 Carmen Jeronimo MD tiZANidine (Zanaflex) 4 MG tablet Take 1 tablet (4 mg) by mouth every 6 hours as needed for muscle spasms for up to 10 days. 01/26/24 02/05/24 Jose Maria Abad MD mirtazapine (Remeron) 15 MG tablet Take 1 tablet (15 mg) by mouth Nightly. 01/26/24 04/25/24 Jose Maria Abad MD Inpatient Scheduled Meds: Diclofenac Sodium, 2 g, Topical, BID folic acid, 1 mg, Oral, Daily levothyroxine, 75 mcg, Oral, qAM AC losartan, 100 mg, Oral, Daily mirtazapine, 15 mg, Oral, Nightly pantoprazole, 40 mg, Oral, BID AC PHENobarbital, 32.4 mg, Oral, q8h sertraline, 50 mg, Oral, Daily tamsulosin, 0.4 mg, Oral, Daily thiamine, 100 mg, Oral, Daily Inpatient PRN Meds: PRN medications: acetaminophen OR acetaminophen, albuterol, dextrose, dextrose, glucagon (rDNA), glucose, hydrALAZINE, hydrOXYzine pamoate, ondansetron ODT OR ondansetron, polyethylene glycol (PEG) 3350, tiZANidine Exam Vitals: 04/28/24 0839 04/28/24 1935 04/29/24 0500 04/29/24 0736 BP: 141/87 112/55 112/63 BP Location: Left arm Left arm Left arm Patient Position: Sitting Lying Lying Pulse: 78 80 73 Resp: 19 18 Temp: 36.2 C (97.2 F) 36.1 C (97 F) (!) 35.5 C (95.9 F) TempSrc: Temporal Temporal Temporal SpO2: 100% 99% 98% Weight: 81.1 kg (178 lb 12.8 oz) Height: Physical Exam Patient resting in bed. He is not flushed or diaphoretic. Oriented x 4. Anxious, restless, very despondent. No significant tremors. No auditory, tactile or visual disturbances Assessment & Plan Diagnosis: Alcohol dependence/withdrawal Patient essentially stable from a detox perspective. Phenobarbital changed to as needed only. Since the patient appears to be going home, I am providing him with referral for the [facility] IOP program hopefully-- he will call to schedule an appointment to enter the program. Flavio Sherman MD Addiction Medicine 04/29/2024 at 5:04 PM --50-- minutes were spent reviewing the patient's records, evaluating the patient, entering orders, coordinating care with the treatment team, and creating a progress note. Narrative portions of the note are written utilizing [employer] software. While every effort is made to dictate clearly and proofread, errors in the dictation may still occur. If there are any questions regarding the dictation please do not hesitate to contact the author. Images from the original note were not included. OCCUPATIONAL THERAPY [facility] Treatment Note Name/MRN: Woody Ni ([id number]) Date of : 1960 Age: 64 y.o. Room/Bed: B4-451/B4-451 A Visit #: 5 out of 5 Discharge Recommendation: Detention Facility, Continue to assess pending progress Equipment Needed: Yes Other: TBD at next level of care Assessment Pt tolerated session fair and is making progress with OT POC. Pt performed transfers/mobility with SBA. Pt is limited by impaired strength, balance, and endurance. Pt demo's mild instability with mobility without use of device, requiring SBA to ensure safety/stability. He would continue to benefit from skilled OT services in order to improve safety and IND in occupational performance. OT rec is SNF upon planned discharge. Subjective Pt supine in bed upon arrival, pleasant and agreeable. Per RN, pt okay to see. Pain: RN managing pain. Medical Precautions: No active isolations Proper PPE donned/doffed in accordance with facility standards. Fall Risk: Maurice Fall Risk Score: 45 (High Risk) Family/Caregiver Present: none Objective Bed Mobility Pt seated in chair pre/post session. Transfers/Mobility Sit to stand: SBA Stand to sit: SBA Standing balance: SBA Functional mobility: SBA Pt performed STS to/from chair with no device with SBA, VC's for hand placement for push up from/reach back to seated surface with good carry over. Increased time to rise. SBA for standing balance with no device, slight instability but no true LOB noted. Pt required use of environmental supports throughout for stability. Pt performed functional mobility within room with SBA with no device. Pt with mild reliance on environmental supports for ambulation within room. SBA for safety throughout. VC's for safety awareness with good understanding noted. Device(s) used: front wheeled walker Cognition Exceptions - Safety judgement: decreased awareness of need for safety - Problem solving: assistance required to generate solutions, assistance required to implement solutions, assistance required to identify errors made, and assistance required to correct errors made - Insights: decreased awareness of deficits Plan Continue acute OT per plan of care. Safety/Education Safety Safety Devices in place: All fall risk precautions in place, call light within reach, left in chair, gait belt, patient at risk for falls, nurse notified, and no alarms engaged upon entry Restraints: No Education Education Given To: patient Education Provided: OT Role, Plan of Care, Transfer Training, Energy Conservation, Fall Prevention Education, Discharge Recommendations, and Benefits of Increasing Activity Education Method: Verbal, Demonstration, and Teach Back Barriers to Learning: None Education Outcome: Verbalized Understanding, Demonstrated Understanding, and Continued Education Needed AM-PAC AM-PAC Inpatient Daily Activity Raw Score: 22 ADL Inpatient CMS G-Code Modifier: CJ Goals Patient Stated Goal: Encounter Problems Encounter Problems (Active) Balance Patient will tolerate standing for 4 minutes to allow for completion of ADL tasks, SBA level. (Progressing) Start: 04/23/24 Expected End: 04/28/24 Dressings Lower Extremities Patient will complete lower body ADL's at SBA level. (Not Addressed) Start: 04/23/24 Expected End: 04/28/24 Mobility pt will complete functional mobility to bathroom with LRAD at SBA level. (Progressing) Start: 04/23/24 Expected End: 04/28/24 Therapeutic Exercise pt will demo good participation in BUE exercises to increase endurance and strength for participation in ADL tasks. (Not Addressed) Start: 04/23/24 Expected End: 04/28/24 Toileting Patient will complete toileting tasks at standard toilet with SBA. (Not Addressed) Start: 04/23/24 Expected End: 04/28/24 Transfers pt will complete std toilet transfers at SBA level (Progressing) Start: 04/23/24 Expected End: 04/28/24 Therapy Time Individual Co-treatment Time In 0158 Time Out 0207 Minutes 9 Timed Code Treatment Minutes: 9 Minutes (1 THER ACT) BERTA Valdovinos Hospitalist Progress Note 04/29/2024 Subjective: Admit Date: 04/22/2024 PCP: Jnai Quezada Room#: B4-762/B4-711 A BRIEF HOSPITAL COURSE: Admitted for alcohol use Interval History: Sitting on chair. 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 CARDIAC ENZYMES: No results for input(s): "TROPONINI" in the last 72 hours. Procalcitonin: No results found for: "PROCAL" COVID-19 PCR: No results for input(s): "COVID19" in the last 72 hours. Objective: Vitals: BP 112/63 (BP Location: Left arm, Patient Position: Lying) Pulse 73 Temp (!) 35.5 C (95.9 F) (Temporal) Resp 18 Ht 5' 10" (1.778 m) Wt 178 lb 12.8 oz (81.1 kg) Comment: Standing Scale SpO2 98% BMI 25.66 kg/m Pulse Ox: SpO2 Av.5 % Min: 98 % Max: 99 % Supplemental O2: Physical Exam Constitutional: Appearance: Normal appearance. Cardiovascular: Rate and Rhythm: Normal rate and regular rhythm. Heart sounds: Normal heart sounds. Pulmonary: Effort: Pulmonary effort is normal. Breath sounds: Normal breath sounds. Abdominal: General: Bowel sounds are normal. Palpations: Abdomen is soft. Musculoskeletal: Comments: Trace edema LE Neurological: General: No focal deficit present. Mental Status: He is alert and oriented to person, place, and time. Medications: Scheduled PRN Diclofenac Sodium, 2 g, Topical, BID folic acid, 1 mg, Oral, Daily levothyroxine, 75 mcg, Oral, qAM AC losartan, 100 mg, Oral, Daily mirtazapine, 15 mg, Oral, Nightly pantoprazole, 40 mg, Oral, BID AC PHENobarbital, 32.4 mg, Oral, q8h sertraline, 50 mg, Oral, Daily tamsulosin, 0.4 mg, Oral, Daily thiamine, 100 mg, Oral, Daily PRN medications: acetaminophen OR acetaminophen, albuterol, dextrose, dextrose, glucagon (rDNA), glucose, hydrALAZINE, hydrOXYzine pamoate, ondansetron ODT OR ondansetron, polyethylene glycol (PEG) 3350, tiZANidine Continuous Assessment Data: (CAT1) Reviewed 1 notes from different specialty or health system (each=1). (LOW: 2x CAT1 or independent historian MOD: 3x CAT1 or 1x CAT3 EXTENSIVE: 3x CAT1 and 1x CAT3) Acute, acute on chronic, unstable/uncontrolled chronic problems/diagnoses: Alcohol intoxication Alcohol use disorder Major depressive disorder, recurrent, severe, without psychosis Unspecified anxiety disorder DM2 Electrolyte imbalance Thrombocytopenia Stable chronic problems affecting care, new non-acute diagnoses: Hypertension Anemia Depression Hep C 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 GERD SHAYLA BPH Chronic pain Plan As a result of the above findings & factors, the following mgmt was pursued: - continue phenobarb taper. - DC planning - am labs, replace lytes prn - PT/OT/CM/SW - delirium precautions: increase activity - DVT prophylaxis: enoxaparin and encourage ambulation Advance Directive: Full Code Anticipated Discharge Extended Emergency Contact Information Primary Emergency Contact: Kingsley Carl Mobile Relation: Significant Other Ced Koenig MD Division of Hospitalist Medicine [employer] Nutrition update completed. Chart reviewed. Patient continues as a level 1 for nutrition care. Images from the original note were not included. PHYSICAL THERAPY [facility] Name/MRN: Woody Ni ([id number]) Date: 04/29/2024 Chart Reviewed. PT attempted. Pt very agitated about a worker that "belittled him all night" Reports that his pain levels are very high and his sugar is low and he feels just as bad as he did yesterday. Will re-attempt as schedule permits. Nurse aware of situation. Jennifer Fallon, NEEDLE BOARD REPAIRER Images from the original note were not included. PHYSICAL THERAPY [facility] Name/MRN: Woody Ni ([id number]) Date: 04/28/2024 PT chart reviewed. Upon PT entry patient was sitting in a chair. Patient refused skilled PT services at this time due to complaints of "dizziness" and "low blood sugar". Patient reported that they need to order food and will not participate until they eat. Will re attempt if time permits. Marisa Kelly, SPT Images from the original note were not included. Addiction Medicine Patient: Woody Ni Admit Date: 04/22/2024 Primary Care Physician: Jani Quezada History of Present Illness Diagnosis: Alcohol dependence/withdrawal The patient continues to be monitored by chemical dependency services. As of this morning the patient was receiving phenobarbital 64.8 mg every 8 hours. He did state that he felt much better in reference to withdrawal symptomatology. Anxiety, tremors minimal. Appetite intact. He is anticipating [facility] to [facility]. Social History Socioeconomic History Marital status: Spouse name: Not on file Number of children: Not on file Years of education: Not on file Highest education level: Not on file Occupational History Not on file Tobacco Use Smoking status: Every Day Types: Cigars Smokeless tobacco: Former Vaping Use Vaping status: Every Day Substances: CBD, canabis Devices: Disposable Substance and Sexual Activity Alcohol use: Yes Alcohol/week: 105.0 standard drinks of alcohol Types: 105 Cans of beer per week Comment: 15-18 beers/day Drug use: Yes Types: Marijuana Comment: daily Sexual activity: Not on file Other Topics Concern Not on file Social History Narrative Not on file Social Determinants of Health Financial Resource Strain: High Risk (01/15/2024) Overall Financial Resource Strain (CARDIA) Difficulty of Paying Living Expenses: Hard Food Insecurity: Food Insecurity Present (01/15/2024) Hunger Vital Sign Worried About Running Out of Food in the Last Year: Sometimes true Ran Out of Food in the Last Year: Sometimes true Transportation Needs: No Transportation Needs (01/15/2024) PRAPARE - Transportation Lack of Transportation (Medical): No Lack of Transportation (Non-Medical): No Physical Activity: Unknown (01/15/2024) Exercise Vital Sign Days of Exercise per Week: 0 days Minutes of Exercise per Session: Not on file Recent Concern: Physical Activity - Inactive (01/15/2024) Exercise Vital Sign Days of Exercise per Week: 0 days Minutes of Exercise per Session: 0 min Stress: No Stress Concern Present (04/03/2023) [employer] [place] [employer] - Occupational Stress Questionnaire Feeling of Stress : Not at all Social Connections: Socially Isolated (12/07/2023) Social Connection and Isolation Panel [NHANES] Frequency of Communication with Friends and Family: Never Frequency of Social Gatherings with Friends and Family: Never Attends [employer]ish Services: Never Active Member of Clubs or Organizations: No Attends Club or Organization Meetings: Not on file Marital Status: Living with partner Intimate Partner Violence: Not At Risk (04/22/2024) Humiliation, Afraid, Rape, and Kick questionnaire Fear of Current or Ex-Partner: No Emotionally Abused: No Physically Abused: No Sexually Abused: No Housing Stability: Low Risk (01/15/2024) Housing Stability Vital Sign Unable to Pay for Housing in the Last Year: No Number of Places Lived in the Last Year: 1 Unstable Housing in the Last Year: No Recent Concern: Housing Stability - High Risk (10/21/2023) Housing Stability Vital Sign Unable to Pay for Housing in the Last Year: Yes Number of Places Lived in the Last Year: 1 Unstable Housing in the Last Year: No 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 Nausea and vomiting 12/22/22-12/26/22 admitted at [facility] Pain management Sleep apnea noncompliant with device Past Surgical History: Procedure Laterality Date BACK SURGERY x 2 CHOLECYSTECTOMY LAMINECTOMY LAP,CHOLECYSTECTOMY (HISTORICAL) N/A 01/05/2023 WISDOM TOOTH EXTRACTION Family History Problem Relation Name Age of Onset Depression Mother Depression Maternal Grandmother Labs Recent Results (from the past 48 hour(s)) CBC auto differential Collection Time: 04/26/24 12:45 PM Result Value Ref Range Auto WBC 6.1 3.6 - 10.7 10*3/uL RBC 3.75 (L) 4.40 - 5.90 10*6/uL Hemoglobin 11.3 (L) 13.0 - 18.0 g/dL Hematocrit 34.3 (L) 40.0 - 52.0 % MCV 91.5 77.0 - 99.0 fL MCH 30.1 26.0 - 34.0 pg MCHC 32.9 30.5 - 36.0 % RDW 13.9 11.5 - 15.0 % Platelets 123 (L) 140 - 440 10*3/uL MPV 9.3 9.0 - 12.7 fL nRBC 0.0 0.0 - 2.0 /100 WBCs Neutrophils Relative 60.1 38.0 - 82.0 % Lymphocytes Relative 27.8 15.0 - 45.0 % Monocytes Relative 7.4 5.0 - 13.0 % Eosinophils Relative 3.5 0.0 - 6.0 % Basophils Relative 0.5 0.0 - 2.0 % Immature Grans % 0.7 0.0 - 2.0 % Neutrophils Absolute 3.6 1.8 - 7.5 10*3/uL Lymphocytes Absolute 1.7 1.0 - 4.3 10*3/uL Monocytes Absolute 0.5 0.0 - 0.9 10*3/uL Eosinophils Absolute 0.2 0.0 - 0.5 10*3/uL Basophils Absolute 0.0 0.0 - 0.2 10*3/uL Immature Grans Absolute 0.0 <0.1 10*3/uL POCT glucose meter Collection Time: 04/26/24 4:54 PM Result Value Ref Range Glucose 91 70 - 100 mg/dL POCT glucose meter Collection Time: 04/26/24 7:31 PM Result Value Ref Range Glucose 102 (H) 70 - 100 mg/dL Comprehensive metabolic panel Collection Time: 04/27/24 3:22 AM Result Value Ref Range SODIUM 132 (L) 135 - 145 mmol/L POTASSIUM 4.1 3.5 - 5.1 mmol/L CHLORIDE 100 98 - 107 mmol/L CARBON DIOXIDE 25 22 - 30 mmol/L ANION GAP 7 3 - 13 mmol/L UREA NITROGEN 9 9 - 20 mg/dL CREATININE 0.85 0.66 - 1.25 mg/dL GLUCOSE 73 70 - 100 mg/dL CALCIUM 9.2 8.4 - 10.4 mg/dL AST (SGOT) 29 15 - 46 U/L ALT 19 0 - 49 U/L ALKALINE PHOSPHATASE 45 38 - 126 U/L ALBUMIN 3.9 3.5 - 5.0 g/dL BILIRUBIN, TOTAL 0.4 0.2 - 1.3 mg/dL TOTAL PROTEIN 6.7 6.3 - 8.2 g/dL eGFR >90.0 >60.0 mL/min/1.73m*2 CBC auto differential Collection Time: 04/27/24 6:01 AM Result Value Ref Range Auto WBC 6.4 3.6 - 10.7 10*3/uL RBC 3.68 (L) 4.40 - 5.90 10*6/uL Hemoglobin 11.2 (L) 13.0 - 18.0 g/dL Hematocrit 34.2 (L) 40.0 - 52.0 % MCV 92.9 77.0 - 99.0 fL MCH 30.4 26.0 - 34.0 pg MCHC 32.7 30.5 - 36.0 % RDW 13.7 11.5 - 15.0 % Platelets 105 (L) 140 - 440 10*3/uL MPV 9.7 9.0 - 12.7 fL nRBC 0.0 0.0 - 2.0 /100 WBCs Neutrophils Relative 46.6 38.0 - 82.0 % Lymphocytes Relative 38.4 15.0 - 45.0 % Monocytes Relative 8.9 5.0 - 13.0 % Eosinophils Relative 4.7 0.0 - 6.0 % Basophils Relative 0.6 0.0 - 2.0 % Immature Grans % 0.8 0.0 - 2.0 % Neutrophils Absolute 3.0 1.8 - 7.5 10*3/uL Lymphocytes Absolute 2.5 1.0 - 4.3 10*3/uL Monocytes Absolute 0.6 0.0 - 0.9 10*3/uL Eosinophils Absolute 0.3 0.0 - 0.5 10*3/uL Basophils Absolute 0.0 0.0 - 0.2 10*3/uL Immature Grans Absolute 0.1 (H) <0.1 10*3/uL IPF 3 POCT glucose meter Collection Time: 04/27/24 7:34 AM Result Value Ref Range Glucose 76 70 - 100 mg/dL POCT glucose meter Collection Time: 04/27/24 11:08 AM Result Value Ref Range Glucose 110 (H) 70 - 100 mg/dL POCT glucose meter Collection Time: 04/27/24 4:25 PM Result Value Ref Range Glucose 111 (H) 70 - 100 mg/dL POCT glucose meter Collection Time: 04/27/24 9:08 PM Result Value Ref Range Glucose 107 (H) 70 - 100 mg/dL POCT glucose meter Collection Time: 04/28/24 8:32 AM Result Value Ref Range Glucose 96 70 - 100 mg/dL Medications Home Meds: Prior to Admission medications Medication Sig Start Date End Date Taking? Authorizing Provider albuterol 108 (90 Base) MCG/ACT inhaler Inhale 2 puffs every 6 hours as needed for shortness of breath or wheezing. Yes Historical Provider, diphenhydrAMINE-zinc acetate (BENADryl) cream Apply topically 3 times daily as needed for itching. 01/26/24 01/25/25 Yes Jose Maria Abad MD hydrOXYzine HCl (Atarax) 25 MG tablet Take 25 mg by mouth every 6 hours as needed for itching. Yes Historical Provider, ipratropium-albuterol (Duo-Neb) 0.5-2.5 mg/3 mL nebulizer solution every 6 hours. Yes Historical Provider, magnesium chloride 64 MG EC tablet Take 1 tablet (64 mg) by mouth daily (with breakfast). 01/21/24 Yes Ethel Anna, DO niacin 100 MG tablet Every 24 hours. Yes Historical Provider, pantoprazole (ProtoNix) 40 MG EC tablet Take 1 tablet (40 mg) by mouth in the morning and 1 tablet (40 mg) in the evening. Take before meals. Do not crush, chew, or split.. 10/27/23 10/26/24 Yes Kacie Benz, DO tamsulosin (Flomax) 0.4 MG 24 hr capsule Take 0.4 mg by mouth daily. 01/27/22 Yes Historical Provider, thiamine (Vitamin B-1) 100 MG tablet Take 1 tablet (100 mg) by mouth daily. Do not start before April 16, 2023. 04/16/23 Yes Ced Koenig MD alendronate (Fosamax) 70 MG tablet Take 70 mg by mouth once a week. 05/19/17 Historical Provider, cyanocobalamin (Vitamin B-12) 1000 MCG/ML injection 1 mL intramuscularly once a month Historical Provider, diphenhydrAMINE (BENADryl) 50 MG capsule Take 1 capsule (50 mg) by mouth every 6 hours as needed for itching. 01/26/24 02/25/24 Jose Maria Abad MD famotidine (Pepcid) 20 MG tablet Take 1 tablet (20 mg) by mouth 2 times daily. 04/15/23 04/14/24 Ced Koenig MD fluticasone (Flonase) 50 MCG/ACT nasal spray Administer 1 spray into each nostril daily as needed. 04/27/17 Historical Provider, hydrOXYzine pamoate (Vistaril) 25 MG capsule Take 1 capsule (25 mg) by mouth every 8 hours as needed for anxiety for up to 10 days. 01/26/24 02/05/24 Jose Maria Abad MD ketoconazole (NIZOral) 2 % shampoo EVERY THREE DAYS 11/18/19 Historical Provider, levothyroxine (Synthroid, Levoxyl) 50 MCG tablet TAKE 1 TABLET BY MOUTH DAILY Patient taking differently: Take 75 mcg by mouth every morning (before breakfast). 06/06/22 01/18/24 Nicolas Qiu losartan (Cozaar) 100 MG tablet Take 1 tablet (100 mg) by mouth daily. Do not start before February 15, 2023. 02/15/23 02/15/24 Kacie Benz DO mirtazapine (Remeron) 15 MG tablet Take 1 tablet (15 mg) by mouth Nightly. 04/25/24 06/24/24 Carmen Jeronimo MD nicotine (Nicoderm, Step 1) 21 MG/24HR patch Place 1 patch on the skin daily. 10/27/23 11/26/23 Kacie Benz, DO nicotine polacrilex (Commit) 2 MG lozenge Dissolve 1 lozenge (2 mg) in the mouth every 2 hours as needed for smoking cessation. 01/20/24 02/19/24 Ethel Anna, nitroglycerin (Nitrostat) 0.4 MG SL tablet 1 tab(s) sublingually every 5 minutes x 3 doses prn Historical Provider, sertraline (Zoloft) 50 MG tablet Take 1 tablet (50 mg) by mouth daily. 04/25/24 06/24/24 Carmen Jeronimo MD tiZANidine (Zanaflex) 4 MG tablet Take 1 tablet (4 mg) by mouth every 6 hours as needed for muscle spasms for up to 10 days. 01/26/24 02/05/24 Jose Maria Abad MD mirtazapine (Remeron) 15 MG tablet Take 1 tablet (15 mg) by mouth Nightly. 01/26/24 04/25/24 Jose Maria Abad MD Inpatient Scheduled Meds: folic acid, 1 mg, Oral, Daily levothyroxine, 75 mcg, Oral, qAM AC losartan, 100 mg, Oral, Daily mirtazapine, 15 mg, Oral, Nightly pantoprazole, 40 mg, Oral, BID AC PHENobarbital, 32.4 mg, Oral, q8h sertraline, 50 mg, Oral, Daily tamsulosin, 0.4 mg, Oral, Daily thiamine, 100 mg, Oral, Daily Inpatient PRN Meds: PRN medications: acetaminophen OR acetaminophen, albuterol, dextrose, dextrose, glucagon (rDNA), glucose, hydrALAZINE, ondansetron ODT OR ondansetron, polyethylene glycol (PEG) 3350 Exam Vitals: 04/27/24 0831 04/27/24 1851 04/28/24 0500 04/28/24 0839 BP: 154/84 150/84 141/87 BP Location: Right arm Left arm Patient Position: Sitting Sitting Pulse: 78 88 78 Resp: 18 Temp: 36.1 C (97 F) (!) 35.7 C (96.2 F) 36.2 C (97.2 F) TempSrc: Temporal Temporal Temporal SpO2: 100% 99% 100% Weight: 74.9 kg (165 lb 1.5 oz) Height: Physical Exam Patient is not flushed or diaphoretic. Oriented x 4. Mild tremors persist. No auditory, tactile or visual disturbances Assessment & Plan Diagnosis: Alcohol dependence/withdrawal Phenobarbital decreased to 34.8 mg every 8 hours. As noted, tentative plan is for this patient to transition to nursing facility. Will monitor Flavio Sherman MD Addiction Medicine 04/28/2024 at 11:40 AM --50-- minutes were spent reviewing the patient's records, evaluating the patient, entering orders, coordinating care with the treatment team, and creating a progress note. Narrative portions of the note are written utilizing [employer] software. While every effort is made to dictate clearly and proofread, errors in the dictation may still occur. If there are any questions regarding the dictation please do not hesitate to contact the author. Hospitalist Progress Note 04/28/2024 Subjective: Admit Date: 04/22/2024 PCP: Jani Quezada Room#: B4-885/B4-005 A BRIEF HOSPITAL COURSE: Admitted for alcohol use Interval History: Sitting on chair. 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 CARDIAC ENZYMES: No results for input(s): "TROPONINI" in the last 72 hours. Procalcitonin: No results found for: "PROCAL" COVID-19 PCR: No results for input(s): "COVID19" in the last 72 hours. Objective: Vitals: BP 141/87 (BP Location: Left arm, Patient Position: Sitting) Pulse 78 Temp 36.2 C (97.2 F) (Temporal) Resp 18 Ht 5' 10" (1.778 m) Wt 165 lb 1.5 oz (74.9 kg) SpO2 100% BMI 23.69 kg/m Pulse Ox: SpO2 Av.5 % Min: 99 % Max: 100 % Supplemental O2: Physical Exam Constitutional: Appearance: Normal appearance. Cardiovascular: Rate and Rhythm: Normal rate and regular rhythm. Heart sounds: Normal heart sounds. Pulmonary: Effort: Pulmonary effort is normal. Breath sounds: Normal breath sounds. Abdominal: General: Bowel sounds are normal. Palpations: Abdomen is soft. Musculoskeletal: Comments: Trace edema LE Neurological: General: No focal deficit present. Mental Status: He is alert and oriented to person, place, and time. Medications: Scheduled PRN folic acid, 1 mg, Oral, Daily levothyroxine, 75 mcg, Oral, qAM AC losartan, 100 mg, Oral, Daily mirtazapine, 15 mg, Oral, Nightly pantoprazole, 40 mg, Oral, BID AC PHENobarbital, 32.4 mg, Oral, q8h sertraline, 50 mg, Oral, Daily tamsulosin, 0.4 mg, Oral, Daily thiamine, 100 mg, Oral, Daily PRN medications: acetaminophen OR acetaminophen, albuterol, dextrose, dextrose, glucagon (rDNA), glucose, hydrALAZINE, ondansetron ODT OR ondansetron, polyethylene glycol (PEG) 3350 Continuous Assessment Data: (CAT1) Reviewed 1 notes from different specialty or health system (each=1). (LOW: 2x CAT1 or independent historian MOD: 3x CAT1 or 1x CAT3 EXTENSIVE: 3x CAT1 and 1x CAT3) Acute, acute on chronic, unstable/uncontrolled chronic problems/diagnoses: Alcohol intoxication Alcohol use disorder Major depressive disorder, recurrent, severe, without psychosis Unspecified anxiety disorder DM2 Electrolyte imbalance Thrombocytopenia Stable chronic problems affecting care, new non-acute diagnoses: Hypertension Anemia Depression Hep C 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 GERD SHAYLA BPH Chronic pain Plan As a result of the above findings & factors, the following mgmt was pursued: - continue with phenobarb taper - plan to DC to SNF - am labs, replace lytes prn - PT/OT/CM/SW - delirium precautions: increase activity - DVT prophylaxis: enoxaparin and encourage ambulation Advance Directive: Full Code Anticipated Discharge Extended Emergency Contact Information Primary Emergency Contact: Kingsley Carl Mobile Relation: Significant Other Ced Koenig MD Division of Hospitalist Medicine [facility] Hospitalist Progress Note 04/28/2024 Subjective: Admit Date: 04/22/2024 PCP: Jani Quezada Room#: [id number] A BRIEF HOSPITAL COURSE: Admitted for alcohol use Interval History: Sitting comfortably on chair. No new complaints. Adult diet Regular; Low Sodium (2 gm); 1800 ml 24HR INTAKE/OUTPUT: No intake or output data in the 24 hours ending 04/28/24 1113 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 Nausea and vomiting 12/22/22-12/26/22 admitted at [facility] Pain management Sleep apnea noncompliant with device LABS: CBC: Recent Labs 04/26/24 1245 04/27/24 0601 WBC 6.1 6.4 RBC 3.75* 3.68* HGB 11.3* 11.2* HCT 34.3* 34.2* MCV 91.5 92.9 RDW 13.9 13.7 PLT 123* 105* BMP: Recent Labs 04/27/24 0322 NA 132* K 4.1 CL 100 CO2 25 BUN 9 CREATININE 0.85 GLUCOSE 73 CALCIUM 9.2 ANIONGAP 7 LIVER PROFILE: Recent Labs 04/27/24 0322 AST 29 ALT 19 BILITOT 0.4 ALKPHOS 45 PROT 6.7 PT/INR: No results for input(s): "PROTIME", "INR" in the last 72 hours. CARDIAC ENZYMES: No results for input(s): "TROPONINI" in the last 72 hours. Procalcitonin: No results found for: "PROCAL" COVID-19 PCR: No results for input(s): "COVID19" in the last 72 hours. Objective: Vitals: BP 141/87 (BP Location: Left arm, Patient Position: Sitting) Pulse 78 Temp 36.2 C (97.2 F) (Temporal) Resp 18 Ht 5' 10" (1.778 m) Wt 165 lb 1.5 oz (74.9 kg) SpO2 100% BMI 23.69 kg/m Pulse Ox: SpO2 Av.5 % Min: 99 % Max: 100 % Supplemental O2: Physical Exam Constitutional: Appearance: Normal appearance. Cardiovascular: Rate and Rhythm: Normal rate and regular rhythm. Heart sounds: Normal heart sounds. Pulmonary: Effort: Pulmonary effort is normal. Breath sounds: Normal breath sounds. Abdominal: General: Bowel sounds are normal. Palpations: Abdomen is soft. Musculoskeletal: Comments: Trace edema LE Neurological: General: No focal deficit present. Mental Status: He is alert and oriented to person, place, and time. Medications: Scheduled PRN folic acid, 1 mg, Oral, Daily insulin lispro, 0-12 Units, SubCUTAneous, TID WC And insulin lispro, 0-12 Units, SubCUTAneous, Nightly levothyroxine, 75 mcg, Oral, qAM AC losartan, 100 mg, Oral, Daily mirtazapine, 15 mg, Oral, Nightly pantoprazole, 40 mg, Oral, BID AC PHENobarbital, 64.8 mg, Oral, q8h sertraline, 50 mg, Oral, Daily tamsulosin, 0.4 mg, Oral, Daily thiamine, 100 mg, Oral, Daily PRN medications: acetaminophen OR acetaminophen, albuterol, dextrose, dextrose, glucagon (rDNA), glucose, hydrALAZINE, ondansetron ODT OR ondansetron, polyethylene glycol (PEG) 3350 Continuous Assessment Data: (CAT1) Reviewed 1 notes from different specialty or health system (each=1). (LOW: 2x CAT1 or independent historian MOD: 3x CAT1 or 1x CAT3 EXTENSIVE: 3x CAT1 and 1x CAT3) Acute, acute on chronic, unstable/uncontrolled chronic problems/diagnoses: Alcohol intoxication Alcohol use disorder Major depressive disorder, recurrent, severe, without psychosis Unspecified anxiety disorder DM2 Electrolyte imbalance Thrombocytopenia Stable chronic problems affecting care, new non-acute diagnoses: Hypertension Anemia Depression Hep C 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 GERD SHAYLA BPH Chronic pain Plan As a result of the above findings & factors, the following mgmt was pursued: - continue with phenobarb taper - plan to DC to SNF - am labs, replace lytes prn - PT/OT/CM/SW - delirium precautions: increase activity - DVT prophylaxis: enoxaparin and encourage ambulation Advance Directive: Full Code Anticipated Discharge Extended Emergency Contact Information Primary Emergency Contact: Malcom,Kingsley Mobile Relation: Significant Other Ced Koenig MD Division of Hospitalist Medicine [facility] Images from the original note were not included. OCCUPATIONAL THERAPY [facility] Treatment Note Name/MRN: Woody Ni ([id number]) Date of : 1960 Age: 64 y.o. Room/Bed: [facility] A Visit #: 4 out of 5 visits Discharge Recommendation: Detention Facility, Continue to assess pending progress Equipment Needed: Yes Other: TBD at next level of care Prior Level of Function ADL Assistance: Needs Assist assist for LB ADL's. Sponge bathes. Ambulation Assistance: Independent Transfer Assistance: Independent Assessment Pt seated up in chair upon arrival. STS at CGA. Functional mobility at [facility] with occ Eliezer for stability. Activity tolerance of ~ 4min. Pt is limited by impaired strength, balance, and endurance. SOB noted. He would continue to benefit from skilled OT services in order to improve safety and IND in occupational performance. OT rec is SNF upon planned discharge. Subjective Agreeable for OT this date. Per RNzachary for tx Pain: 0-10 pain scale: 5/10 Location: generalized Medical Precautions: No active isolations Proper PPE donned/doffed in accordance with facility standards. Fall Risk: Maurice Fall Risk Score: 35 (Medium Risk) Precautions/Restrictions: N/A Family/Caregiver Present: none Objective ADLs LE Dressing: SBA Pt performed LB dressing at SBA with max cuing for initiation of tasks with pt stating "once my clothes are on I don't take them off, haven't showered in years". Pt able to claritza/doff socks and shoes with no physical assist using figure 4 technique. Transfers/Mobility Sit to stand: Contact Guard Stand to sit: Contact Guard Standing balance: Contact Guard Functional mobility: Contact Guard, Min Assist Pt performed STS at CGA. Functional mobility in eubanks with FWW at CGA for balance with occ instability noted with Eliezer for balance. Pt stating increased generalized pain this date presenting with limited endurance and frequent standing rest breaks. SOB noted with cuing for PLB with good carryover. Activity tolerance of ~ 4min this date. Device(s) used: standard walker Cognition Exceptions - Safety judgement: decreased awareness of need for safety - Problem solving: assistance required to generate solutions, assistance required to implement solutions, assistance required to identify errors made, and assistance required to correct errors made - Insights: decreased awareness of deficits Plan Continue acute OT per plan of care. Safety/Education Safety Safety Devices in place: All fall risk precautions in place, call light within reach, left in chair, gait belt, and patient at risk for falls Restraints: No Education Education Given To: patient Education Provided: OT Role, Plan of Care, Transfer Training, and Benefits of Increasing Activity Education Method: Verbal and Teach Back Barriers to Learning: Cognition Education Outcome: Verbalized Understanding, Demonstrated Understanding, and Continued Education Needed AM-PAC AM-PAC Inpatient Daily Activity Raw Score: 22 ADL Inpatient CMS G-Code Modifier: CJ Goals Patient Stated Goal: get stronger Encounter Problems Encounter Problems (Active) Balance Patient will tolerate standing for 4 minutes to allow for completion of ADL tasks, SBA level. (Progressing) Start: 04/23/24 Expected End: 04/28/24 Dressings Lower Extremities Patient will complete lower body ADL's at SBA level. (Progressing) Start: 04/23/24 Expected End: 04/28/24 Mobility pt will complete functional mobility to bathroom with LRAD at SBA level. (Progressing) Start: 04/23/24 Expected End: 04/28/24 Therapeutic Exercise pt will demo good participation in BUE exercises to increase endurance and strength for participation in ADL tasks. (Not Addressed) Start: 04/23/24 Expected End: 04/28/24 Toileting Patient will complete toileting tasks at standard toilet with SBA. (Not Addressed) Start: 04/23/24 Expected End: 04/28/24 Transfers pt will complete std toilet transfers at SBA level (Progressing) Start: 04/23/24 Expected End: 04/28/24 Therapy Time Individual Co-treatment Time In 0854 Time Out 0913 Minutes 19 Timed Code Treatment Minutes: 19 Minutes (1 TA) KIERSTEN Diaz Hospitalist Progress Note 04/27/2024 Subjective: Admit Date: 04/22/2024 PCP: Jani Quezada Room#: [id number] A BRIEF HOSPITAL COURSE: Admitted for alcohol use Interval History: Sitting comfortably on chair. No new complaints. 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 Nausea and vomiting 12/22/22-12/26/22 admitted at [facility] Pain management Sleep apnea noncompliant with device LABS: CBC: Recent Labs 04/25/24 0231 04/26/24 1245 04/27/24 0601 WBC 8.4 6.1 6.4 RBC 3.88* 3.75* 3.68* HGB 11.7* 11.3* 11.2* HCT 35.6* 34.3* 34.2* MCV 91.8 91.5 92.9 RDW 14.1 13.9 13.7 PLT 127* 123* 105* BMP: Recent Labs 04/25/24 0231 04/27/24 0322 NA 131* 132* K 4.0 4.1 CL 100 100 CO2 25 25 BUN 10 9 CREATININE 0.89 0.85 GLUCOSE 114* 73 CALCIUM 9.2 9.2 ANIONGAP 6 7 LIVER PROFILE: Recent Labs 04/27/24 0322 AST 29 ALT 19 BILITOT 0.4 ALKPHOS 45 PROT 6.7 PT/INR: No results for input(s): "PROTIME", "INR" in the last 72 hours. CARDIAC ENZYMES: No results for input(s): "TROPONINI" in the last 72 hours. Procalcitonin: No results found for: "PROCAL" COVID-19 PCR: No results for input(s): "COVID19" in the last 72 hours. Objective: Vitals: BP 154/84 Pulse 78 Temp 36.1 C (97 F) (Temporal) Resp 18 Ht 5' 10" (1.778 m) Wt 164 lb 3.2 oz (74.5 kg) SpO2 100% BMI 23.56 kg/m Pulse Ox: SpO2 Av.5 % Min: 97 % Max: 100 % Supplemental O2: Physical Exam Constitutional: Appearance: Normal appearance. Cardiovascular: Rate and Rhythm: Normal rate and regular rhythm. Heart sounds: Normal heart sounds. Pulmonary: Effort: Pulmonary effort is normal. Breath sounds: Normal breath sounds. Abdominal: General: Bowel sounds are normal. Palpations: Abdomen is soft. Musculoskeletal: Comments: Trace edema LE Neurological: General: No focal deficit present. Mental Status: He is alert and oriented to person, place, and time. Medications: Scheduled PRN folic acid, 1 mg, Oral, Daily insulin lispro, 0-12 Units, SubCUTAneous, TID WC And insulin lispro, 0-12 Units, SubCUTAneous, Nightly levothyroxine, 75 mcg, Oral, qAM AC losartan, 100 mg, Oral, Daily mirtazapine, 15 mg, Oral, Nightly pantoprazole, 40 mg, Oral, BID AC PHENobarbital, 64.8 mg, Oral, q8h sertraline, 50 mg, Oral, Daily tamsulosin, 0.4 mg, Oral, Daily thiamine, 100 mg, Oral, Daily PRN medications: acetaminophen OR acetaminophen, albuterol, dextrose, dextrose, glucagon (rDNA), glucose, hydrALAZINE, ondansetron ODT OR ondansetron, polyethylene glycol (PEG) 3350 Continuous Assessment Data: (CAT1) Reviewed 1 notes from different specialty or health system (each=1). (LOW: 2x CAT1 or independent historian MOD: 3x CAT1 or 1x CAT3 EXTENSIVE: 3x CAT1 and 1x CAT3) Acute, acute on chronic, unstable/uncontrolled chronic problems/diagnoses: Alcohol intoxication Alcohol use disorder Major depressive disorder, recurrent, severe, without psychosis Unspecified anxiety disorder DM2 Electrolyte imbalance Thrombocytopenia Stable chronic problems affecting care, new non-acute diagnoses: Hypertension Anemia Depression Hep C 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 GERD SHAYLA BPH Chronic pain Plan As a result of the above findings & factors, the following mgmt was pursued: - continue with phenobarb taper - plan to DC to SNF - am labs, replace lytes prn - PT/OT/CM/SW - delirium precautions: increase activity - DVT prophylaxis: enoxaparin and encourage ambulation Advance Directive: Full Code Anticipated Discharge Extended Emergency Contact Information Primary Emergency Contact: Kingsley Carl [place] Relation: Significant Other Ced Koenig MD Division of Hospitalist Medicine [facility] Images from the original note were not included. OCCUPATIONAL THERAPY [facility] Treatment Note Name/MRN: Woody Ni ([id number]) Date of : 1960 Age: 64 y.o. Room/Bed: B4-451/B4451 A Visit #: 3 out of 5 visits Discharge Recommendation: Detention Facility, Continue to assess pending progress Equipment Needed: Yes Other: TBD at next level of care Prior Level of Function ADL Assistance: Needs Assist assist for LB ADL's. Sponge bathes. Ambulation Assistance: Independent Transfer Assistance: Independent Assessment Pt tolerated session fair and is making progress towards OT POC. He completed transfers/mobility with CGA-Min A. Pt is limited by impaired strength, balance, and endurance. Pt demo's mild instability with mobility without use of device, requiring CGA to ensure safety/stability. He would continue to benefit from skilled OT services in order to improve safety and IND in occupational performance. OT rec is SNF upon planned discharge. Subjective Pt supine in bed upon arrival, pleasant and agreeable. Per RN, pt okay to see. Pain: 0-10 pain scale: 6/10 Location: Generalized Medical Precautions: No active isolations Proper PPE donned/doffed in accordance with facility standards. Fall Risk: Maurice Fall Risk Score: 50 (High Risk) Precautions/Restrictions: N/A Family/Caregiver Present: none Objective ADLs LE Dressing: SBA Pt performed LE dressing with SBA while seated EOB, he utilized modified figure 4 tech to doff/don fariba socks. Increased time to complete. Bed Mobility Pt seated in chair pre/post session. Transfers/Mobility Sit to stand: Contact Guard Stand to sit: Contact Guard Standing balance: Contact Guard Functional mobility: Contact Guard, Min Assist Pt performed STS to/from chair with no device with CGA, VC's for hand placement for push up from/reach back to seated surface with good carry over. CGA for standing balance with no device, slight instability but no true LOB noted. Pt required use of environmental supports throughout for stability. Pt performed functional mobility within room/hallway with CGA-Min A with no device, pt required Min A x1 for slight correction of LOB. Pt with mild reliance on environmental supports for ambulation within hallway. CGA for safety throughout. Device(s) used: none Cognition Exceptions - Safety judgement: decreased awareness of need for safety - Problem solving: assistance required to generate solutions, assistance required to implement solutions, assistance required to identify errors made, and assistance required to correct errors made - Insights: decreased awareness of deficits Plan Continue acute OT per plan of care. Safety/Education Safety Safety Devices in place: All fall risk precautions in place, call light within reach, gait belt, patient at risk for falls, nurse notified, and no alarms engaged upon entry Restraints: No Education Education Given To: patient Education Provided: OT Role, Plan of Care, ADL Adaptive Strategies, Transfer Training, Energy Conservation, Fall Prevention Education, Discharge Recommendations, and Benefits of Increasing Activity Education Method: Verbal, Demonstration, and Teach Back Barriers to Learning: None Education Outcome: Verbalized Understanding, Demonstrated Understanding, and Continued Education Needed AM-PAC AM-PAC Inpatient Daily Activity Raw Score: 22 ADL Inpatient CMS G-Code Modifier: CJ Goals Patient Stated Goal: get stronger Encounter Problems Encounter Problems (Active) Balance Patient will tolerate standing for 4 minutes to allow for completion of ADL tasks, SBA level. (Progressing) Start: 04/23/24 Expected End: 04/28/24 Dressings Lower Extremities Patient will complete lower body ADL's at SBA level. (Progressing) Start: 04/23/24 Expected End: 04/28/24 Mobility pt will complete functional mobility to bathroom with LRAD at SBA level. (Progressing) Start: 04/23/24 Expected End: 04/28/24 Therapeutic Exercise pt will demo good participation in BUE exercises to increase endurance and strength for participation in ADL tasks. (Not Addressed) Start: 04/23/24 Expected End: 04/28/24 Toileting Patient will complete toileting tasks at standard toilet with SBA. (Progressing) Start: 04/23/24 Expected End: 04/28/24 Transfers pt will complete std toilet transfers at SBA level (Progressing) Start: 04/23/24 Expected End: 04/28/24 Therapy Time Individual Co-treatment Time In 1145 Time Out 1202 Minutes 17 Timed Code Treatment Minutes: 17 Minutes (1 THER ACT) BERTA Valdovinos Images from the original note were not included. Addiction Medicine Patient: Woody Ni Admit Date: 04/22/2024 Primary Care Physician: Jani Quezada History of Present Illness Diagnosis: Alcohol dependence/withdrawal The patient continues to be monitored by chemical dependency services. As of this morning he was receiving phenobarbital 64.8 mg every 6 hours. In reference to withdrawal symptomatology, the patient did state that he feels better each day. Anxiety, sweats, tremors steadily abating. Appetite improved. Tentative plans are for this patient to transition to nursing facility. Social History Socioeconomic History Marital status: Spouse name: Not on file Number of children: Not on file Years of education: Not on file Highest education level: Not on file Occupational History Not on file Tobacco Use Smoking status: Every Day Types: Cigars Smokeless tobacco: Former Vaping Use Vaping status: Every Day Substances: CBD, canabis Devices: Disposable Substance and Sexual Activity Alcohol use: Yes Alcohol/week: 105.0 standard drinks of alcohol Types: 105 Cans of beer per week Comment: 15-18 beers/day Drug use: Yes Types: Marijuana Comment: daily Sexual activity: Not on file Other Topics Concern Not on file Social History Narrative Not on file Social Determinants of Health Financial Resource Strain: High Risk (01/15/2024) Overall Financial Resource Strain (CARDIA) Difficulty of Paying Living Expenses: Hard Food Insecurity: Food Insecurity Present (01/15/2024) Hunger Vital Sign Worried About Running Out of Food in the Last Year: Sometimes true Ran Out of Food in the Last Year: Sometimes true Transportation Needs: No Transportation Needs (01/15/2024) PRAPARE - Transportation Lack of Transportation (Medical): No Lack of Transportation (Non-Medical): No Physical Activity: Unknown (01/15/2024) Exercise Vital Sign Days of Exercise per Week: 0 days Minutes of Exercise per Session: Not on file Recent Concern: Physical Activity - Inactive (01/15/2024) Exercise Vital Sign Days of Exercise per Week: 0 days Minutes of Exercise per Session: 0 min Stress: No Stress Concern Present (04/03/2023) [employer] [place] [employer] - Occupational Stress Questionnaire Feeling of Stress : Not at all Social Connections: Socially Isolated (12/07/2023) Social Connection and Isolation Panel [NHANES] Frequency of Communication with Friends and Family: Never Frequency of Social Gatherings with Friends and Family: Never Attends Amish Services: Never Active Member of Clubs or Organizations: No Attends Club or Organization Meetings: Not on file Marital Status: Living with partner Intimate Partner Violence: Not At Risk (04/22/2024) Humiliation, Afraid, Rape, and Kick questionnaire Fear of Current or Ex-Partner: No Emotionally Abused: No Physically Abused: No Sexually Abused: No Housing Stability: Low Risk (01/15/2024) Housing Stability Vital Sign Unable to Pay for Housing in the Last Year: No Number of Places Lived in the Last Year: 1 Unstable Housing in the Last Year: No Recent Concern: Housing Stability - High Risk (10/21/2023) Housing Stability Vital Sign Unable to Pay for Housing in the Last Year: Yes Number of Places Lived in the Last Year: 1 Unstable Housing in the Last Year: No 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 Nausea and vomiting 12/22/22-12/26/22 admitted at [facility] Pain management Sleep apnea noncompliant with device Past Surgical History: Procedure Laterality Date BACK SURGERY x 2 CHOLECYSTECTOMY LAMINECTOMY LAP,CHOLECYSTECTOMY (HISTORICAL) N/A 01/05/2023 WISDOM TOOTH EXTRACTION Family History Problem Relation Name Age of Onset Depression Mother Depression Maternal Grandmother Labs Recent Results (from the past 48 hour(s)) POCT glucose meter Collection Time: 04/25/24 11:46 AM Result Value Ref Range Glucose 104 (H) 70 - 100 mg/dL POCT glucose meter Collection Time: 04/25/24 4:39 PM Result Value Ref Range Glucose 128 (H) 70 - 100 mg/dL POCT glucose meter Collection Time: 04/25/24 8:20 PM Result Value Ref Range Glucose 105 (H) 70 - 100 mg/dL POCT glucose meter Collection Time: 04/26/24 7:42 AM Result Value Ref Range Glucose 99 70 - 100 mg/dL POCT glucose meter Collection Time: 04/26/24 11:08 AM Result Value Ref Range Glucose 107 (H) 70 - 100 mg/dL CBC auto differential Collection Time: 04/26/24 12:45 PM Result Value Ref Range Auto WBC 6.1 3.6 - 10.7 10*3/uL RBC 3.75 (L) 4.40 - 5.90 10*6/uL Hemoglobin 11.3 (L) 13.0 - 18.0 g/dL Hematocrit 34.3 (L) 40.0 - 52.0 % MCV 91.5 77.0 - 99.0 fL MCH 30.1 26.0 - 34.0 pg MCHC 32.9 30.5 - 36.0 % RDW 13.9 11.5 - 15.0 % Platelets 123 (L) 140 - 440 10*3/uL MPV 9.3 9.0 - 12.7 fL nRBC 0.0 0.0 - 2.0 /100 WBCs Neutrophils Relative 60.1 38.0 - 82.0 % Lymphocytes Relative 27.8 15.0 - 45.0 % Monocytes Relative 7.4 5.0 - 13.0 % Eosinophils Relative 3.5 0.0 - 6.0 % Basophils Relative 0.5 0.0 - 2.0 % Immature Grans % 0.7 0.0 - 2.0 % Neutrophils Absolute 3.6 1.8 - 7.5 10*3/uL Lymphocytes Absolute 1.7 1.0 - 4.3 10*3/uL Monocytes Absolute 0.5 0.0 - 0.9 10*3/uL Eosinophils Absolute 0.2 0.0 - 0.5 10*3/uL Basophils Absolute 0.0 0.0 - 0.2 10*3/uL Immature Grans Absolute 0.0 <0.1 10*3/uL POCT glucose meter Collection Time: 04/26/24 4:54 PM Result Value Ref Range Glucose 91 70 - 100 mg/dL POCT glucose meter Collection Time: 04/26/24 7:31 PM Result Value Ref Range Glucose 102 (H) 70 - 100 mg/dL Comprehensive metabolic panel Collection Time: 04/27/24 3:22 AM Result Value Ref Range SODIUM 132 (L) 135 - 145 mmol/L POTASSIUM 4.1 3.5 - 5.1 mmol/L CHLORIDE 100 98 - 107 mmol/L CARBON DIOXIDE 25 22 - 30 mmol/L ANION GAP 7 3 - 13 mmol/L UREA NITROGEN 9 9 - 20 mg/dL CREATININE 0.85 0.66 - 1.25 mg/dL GLUCOSE 73 70 - 100 mg/dL CALCIUM 9.2 8.4 - 10.4 mg/dL AST (SGOT) 29 15 - 46 U/L ALT 19 0 - 49 U/L ALKALINE PHOSPHATASE 45 38 - 126 U/L ALBUMIN 3.9 3.5 - 5.0 g/dL BILIRUBIN, TOTAL 0.4 0.2 - 1.3 mg/dL TOTAL PROTEIN 6.7 6.3 - 8.2 g/dL eGFR >90.0 >60.0 mL/min/1.73m*2 CBC auto differential Collection Time: 04/27/24 6:01 AM Result Value Ref Range Auto WBC 6.4 3.6 - 10.7 10*3/uL RBC 3.68 (L) 4.40 - 5.90 10*6/uL Hemoglobin 11.2 (L) 13.0 - 18.0 g/dL Hematocrit 34.2 (L) 40.0 - 52.0 % MCV 92.9 77.0 - 99.0 fL MCH 30.4 26.0 - 34.0 pg MCHC 32.7 30.5 - 36.0 % RDW 13.7 11.5 - 15.0 % Platelets 105 (L) 140 - 440 10*3/uL MPV 9.7 9.0 - 12.7 fL nRBC 0.0 0.0 - 2.0 /100 WBCs Neutrophils Relative 46.6 38.0 - 82.0 % Lymphocytes Relative 38.4 15.0 - 45.0 % Monocytes Relative 8.9 5.0 - 13.0 % Eosinophils Relative 4.7 0.0 - 6.0 % Basophils Relative 0.6 0.0 - 2.0 % Immature Grans % 0.8 0.0 - 2.0 % Neutrophils Absolute 3.0 1.8 - 7.5 10*3/uL Lymphocytes Absolute 2.5 1.0 - 4.3 10*3/uL Monocytes Absolute 0.6 0.0 - 0.9 10*3/uL Eosinophils Absolute 0.3 0.0 - 0.5 10*3/uL Basophils Absolute 0.0 0.0 - 0.2 10*3/uL Immature Grans Absolute 0.1 (H) <0.1 10*3/uL IPF 3 POCT glucose meter Collection Time: 04/27/24 7:34 AM Result Value Ref Range Glucose 76 70 - 100 mg/dL POCT glucose meter Collection Time: 04/27/24 11:08 AM Result Value Ref Range Glucose 110 (H) 70 - 100 mg/dL Medications Home Meds: Prior to Admission medications Medication Sig Start Date End Date Taking? Authorizing Provider albuterol 108 (90 Base) MCG/ACT inhaler Inhale 2 puffs every 6 hours as needed for shortness of breath or wheezing. Yes Historical Provider, diphenhydrAMINE-zinc acetate (BENADryl) cream Apply topically 3 times daily as needed for itching. 01/26/24 01/25/25 Yes Jose Maria Abad MD hydrOXYzine HCl (Atarax) 25 MG tablet Take 25 mg by mouth every 6 hours as needed for itching. Yes Historical Provider, ipratropium-albuterol (Duo-Neb) 0.5-2.5 mg/3 mL nebulizer solution every 6 hours. Yes Historical Provider, magnesium chloride 64 MG EC tablet Take 1 tablet (64 mg) by mouth daily (with breakfast). 01/21/24 Yes Ethel Anna, DO niacin 100 MG tablet Every 24 hours. Yes Historical Provider, pantoprazole (ProtoNix) 40 MG EC tablet Take 1 tablet (40 mg) by mouth in the morning and 1 tablet (40 mg) in the evening. Take before meals. Do not crush, chew, or split.. 10/27/23 10/26/24 Yes Kacie Benz, DO tamsulosin (Flomax) 0.4 MG 24 hr capsule Take 0.4 mg by mouth daily. 01/27/22 Yes Historical Provider, thiamine (Vitamin B-1) 100 MG tablet Take 1 tablet (100 mg) by mouth daily. Do not start before April 16, 2023. 04/16/23 Yes Ced Koenig MD alendronate (Fosamax) 70 MG tablet Take 70 mg by mouth once a week. 05/19/17 Historical Provider, cyanocobalamin (Vitamin B-12) 1000 MCG/ML injection 1 mL intramuscularly once a month Historical Provider, diphenhydrAMINE (BENADryl) 50 MG capsule Take 1 capsule (50 mg) by mouth every 6 hours as needed for itching. 01/26/24 02/25/24 Jose Maria Abad MD famotidine (Pepcid) 20 MG tablet Take 1 tablet (20 mg) by mouth 2 times daily. 04/15/23 04/14/24 Ced Koenig MD fluticasone (Flonase) 50 MCG/ACT nasal spray Administer 1 spray into each nostril daily as needed. 04/27/17 Historical Provider, hydrOXYzine pamoate (Vistaril) 25 MG capsule Take 1 capsule (25 mg) by mouth every 8 hours as needed for anxiety for up to 10 days. 01/26/24 02/05/24 Jose Maria Abad MD ketoconazole (NIZOral) 2 % shampoo EVERY THREE DAYS 11/18/19 Historical Provider, levothyroxine (Synthroid, Levoxyl) 50 MCG tablet TAKE 1 TABLET BY MOUTH DAILY Patient taking differently: Take 75 mcg by mouth every morning (before breakfast). 06/06/22 01/18/24 Nicolas Qiu losartan (Cozaar) 100 MG tablet Take 1 tablet (100 mg) by mouth daily. Do not start before February 15, 2023. 02/15/23 02/15/24 Kacie Benz DO mirtazapine (Remeron) 15 MG tablet Take 1 tablet (15 mg) by mouth Nightly. 04/25/24 06/24/24 Carmen Jeronimo MD nicotine (Nicoderm, Step 1) 21 MG/24HR patch Place 1 patch on the skin daily. 10/27/23 11/26/23 Kacie Benz DO nicotine polacrilex (Commit) 2 MG lozenge Dissolve 1 lozenge (2 mg) in the mouth every 2 hours as needed for smoking cessation. 01/20/24 02/19/24 Ethel Anna, nitroglycerin (Nitrostat) 0.4 MG SL tablet 1 tab(s) sublingually every 5 minutes x 3 doses prn Historical Provider, sertraline (Zoloft) 50 MG tablet Take 1 tablet (50 mg) by mouth daily. 04/25/24 06/24/24 Carmen Jeronimo MD tiZANidine (Zanaflex) 4 MG tablet Take 1 tablet (4 mg) by mouth every 6 hours as needed for muscle spasms for up to 10 days. 01/26/24 02/05/24 Jose Maria Abad MD mirtazapine (Remeron) 15 MG tablet Take 1 tablet (15 mg) by mouth Nightly. 01/26/24 04/25/24 Jose Maria Abad MD Inpatient Scheduled Meds: folic acid, 1 mg, Oral, Daily insulin lispro, 0-12 Units, SubCUTAneous, TID WC And insulin lispro, 0-12 Units, SubCUTAneous, Nightly levothyroxine, 75 mcg, Oral, qAM AC losartan, 100 mg, Oral, Daily mirtazapine, 15 mg, Oral, Nightly pantoprazole, 40 mg, Oral, BID AC PHENobarbital, 64.8 mg, Oral, q6h sertraline, 50 mg, Oral, Daily tamsulosin, 0.4 mg, Oral, Daily thiamine, 100 mg, Oral, Daily Inpatient PRN Meds: PRN medications: acetaminophen OR acetaminophen, albuterol, dextrose, dextrose, glucagon (rDNA), glucose, hydrALAZINE, ondansetron ODT OR ondansetron, polyethylene glycol (PEG) 3350 Exam Vitals: 04/26/24 0742 04/26/24 1929 04/27/24 0500 04/27/24 0831 BP: (!) 157/104 158/85 154/84 BP Location: Left arm Left arm Patient Position: Lying Lying Pulse: 85 91 78 Resp: 18 18 Temp: 36.8 C (98.2 F) 36.9 C (98.4 F) 36.1 C (97 F) TempSrc: Temporal Temporal Temporal SpO2: 99% 97% 100% Weight: 74.5 kg (164 lb 3.2 oz) Height: Physical Exam Patient resting in the day chair. He is not flushed or diaphoretic. Oriented x 4. Pleasant mild tremors noted. No auditory, tactile or visual disturbances Assessment & Plan Diagnosis: Alcohol dependence/withdrawal Will continue phenobarbital taper for alcohol withdrawal syndrome, monitor. As noted, plans are for him to enter a nursing facility once he is released from the hospital. At that point in time arrangements for counseling can be made. Flavio Sherman MD Addiction Medicine 04/27/2024 at 11:30 AM --50-- minutes were spent reviewing the patient's records, evaluating the patient, entering orders, coordinating care with the treatment team, and creating a progress note. Narrative portions of the note are written utilizing [employer] software. While every effort is made to dictate clearly and proofread, errors in the dictation may still occur. If there are any questions regarding the dictation please do not hesitate to contact the author. Images from the original note were not included. PHYSICAL THERAPY [facility] Name/MRN: Woody Ni ([id number]) Date: 04/27/2024 Chart review completed. Patient currently working with OT and unavailable to participate in PT at this time.. Will continue to follow and re-attempt as schedule allows. Melina Gonzalez-[facility] Images from the original note were not included. OCCUPATIONAL THERAPY [facility] Treatment Note Name/MRN: Woody Ni ([id number]) Date of : 1960 Age: 64 y.o. [facility] A Visit #: 1 out of 5 visits Discharge Recommendation: Detention Facility, Continue to assess pending progress Equipment Needed: Yes Other: TBD at next level of care Prior Level of Function ADL Assistance: Needs Assist assist for LB ADL's. Sponge bathes. Ambulation Assistance: Independent Transfer Assistance: Independent Assessment Pt pleasant and agreeable to OT. States he would like to wash his hair and get some clean socks and underwear. Pt is SBA for bathing and UB/LB dressing including socks and slippers. Min assist needed to wash his hair at the sink as he did not want to get right wrist IV wet. Pt also reports back pain and could not bend over too far. Pt is SBA for mouth care standing at the sink. Pt appreciative for ADL's and states he feels better. Pt limited by fatigue and can be a little impulsive at times. Pt is recommended for SNF but will continue to assess progress. Subjective Pleasant and cooperative. Was singing in his room after therapy session. Pain: Pt reports back pain in standing but did not rate. Medical Precautions: No active isolations Proper PPE donned/doffed in accordance with facility standards. Fall Risk: Maurice Fall Risk Score: 50 (High Risk) Precautions/Restrictions: N/A Family/Caregiver Present: none Objective ADLs Grooming: SBA UE Bathing: SBA LE Bathing: SBA UE Dressing: SBA LE Dressing: SBA Pt is SBA in standing for safety with balance. Tends to be a little impulsive when reaching for items and does most everything standing except starting pants over feet and socks. Pt does not use a device for balance but holds onto the sink to steady himself during ADL's. Bed Mobility Supine to sit: Modified Independent Transfers/Mobility Sit to stand: Supervision Stand to sit: Supervision Sitting balance: Modified Independent Standing balance: Supervision, SBA Functional mobility: SBA Pt is SBA to take steps between the sink and the bed. No LOB but moves quickly and over reaches at times. Denies dizziness. Device(s) used: none Cognition Exceptions - Safety judgement: decreased awareness of need for safety - Problem solving: assistance required to generate solutions, assistance required to implement solutions, assistance required to identify errors made, and assistance required to correct errors made - Insights: decreased awareness of deficits Pt initially frustrated and "wanting to walk out". Then tearful and states "I have no one" and then at end of session, pt happy and singing. Plan Continue acute OT per plan of care. Safety/Education Safety Safety Devices in place: All fall risk precautions in place, call light within reach, left in bed, gait belt, and patient left sitting EOB Restraints: No Education Education Given To: patient Education Provided: OT Role, Plan of Care, ADL Adaptive Strategies, Transfer Training, Fall Prevention Education, and Benefits of Increasing Activity Education Method: Verbal and Demonstration Barriers to Learning: Cognition Education Outcome: Verbalized Understanding, Demonstrated Understanding, and Continued Education Needed AM-PAC AM-PAC Inpatient Daily Activity Raw Score: 22 ADL Inpatient CMS G-Code Modifier: CJ Goals Patient Stated Goal: get stronger Encounter Problems Encounter Problems (Active) Balance Patient will tolerate standing for 4 minutes to allow for completion of ADL tasks, SBA level. (Progressing) Start: 04/23/24 Expected End: 04/28/24 Dressings Lower Extremities Patient will complete lower body ADL's at SBA level. (Progressing) Start: 04/23/24 Expected End: 04/28/24 Mobility pt will complete functional mobility to bathroom with LRAD at SBA level. (Not Addressed) Start: 04/23/24 Expected End: 04/28/24 Therapeutic Exercise pt will demo good participation in BUE exercises to increase endurance and strength for participation in ADL tasks. (Not Addressed) Start: 04/23/24 Expected End: 04/28/24 Toileting Patient will complete toileting tasks at standard toilet with SBA. (Not Addressed) Start: 04/23/24 Expected End: 04/28/24 Transfers pt will complete std toilet transfers at SBA level (Not Addressed) Start: 04/23/24 Expected End: 04/28/24 Therapy Time Individual Co-treatment Time In 1455 Time Out 1518 Minutes 23 Timed Code Treatment Minutes: 23 Minutes (adl and ther act) DARWIN Mckinley Images from the original note were not included. PHYSICAL THERAPY [facility] Treatment Note Name/MRN: Woody Ni ([id number]) Date of : 1960 Age: 64 y.o. Room/Bed: [facility] A Visit #: 2 out of 7 visits Discharge Recommendation: Continue to assess pending progress, Detention Facility Other: TBD at next level of care Prior Level of Function ADL Assistance: Needs Assist - assist for LB dressing and some assist for bathing Ambulation Assistance: Independent Device(s) used: quad cane Transfer Assistance: Independent Assessment Pt demonstrates continued motivation to participate in mobility progressing to SBA with FWW, CGA/Eliezer with no device and SBA for transfers with and without device. Pt remains a high fall risk due to level of fatigue, weakness and level of assist to complete steps (Eliezer/modA x 1) increasing his risk of readmission. Pt could benefit from continued PT in order to progress toward goals. SNF remains appropriate at this time due to fall risk and safety concerns. Subjective Patient very pleasant and agreeable to therapy session this date. Per RN patient okay for therapy. Observation: no lines present Pain: Pt denies any current pain. Medical Precautions: No active isolations Proper PPE donned/doffed in accordance with facility standards. Fall Risk: Maurice Fall Risk Score: 50 (High Risk) Precautions/Restrictions: N/A Overall Cognitive Status: WFL Overall Orientation Status: Oriented x4 Family/Caregiver Present: none Objective Transfers/Mobility Sit to stand: SBA, Contact Guard, to FWW from EOB, to no device from chair with no UE support 10x with rest breaks Stand to sit: SBA, Contact Guard Denies dizziness on initial stance. No true LOB on initial stance. Increased time to complete 10 STS with no UE support in order to challenge strength and balance. Pt able to complete without true LOB, increased time to complete with rest breaks to complete. Pt very motivated to complete to the best of his ability. Device(s) used: none and front wheeled walker Ambulation Ambulation 1 Assistive device(s) used: front wheeled walker Assist level: SBA Distance (ft): 80 ft x 2 Quality of gait: No LOB, reciprocal stepping, B foot clearance, slow heide Pt requires cues for posture and proximity to FWW in order to improve safety and stability. Pt corrects with cues. Increased fatigue noted with increased distance. Ambulation 2 Assistive device(s) used: none Assist level: Contact Guard, Min Assist Distance (ft): 80 ft x 2 Quality of gait: No LOB, reciprocal stepping, shuffling, uneven step length, wide JM, slow heide, postural sway Pt ambulated with no device this date in order to challenge functional balance. Pt with increased instability with no device and poor gait mechanics, worsening with fatigue. Pt could benefit from a FWW at this time for safety. Stairs Stairs 1 Assistive device(s) used: none Assist level: Min Assist, Mod Assist # of steps: 1 step, 2 steps Rails: left Additional factors: non-reciprocal going up, non-reciprocal going down Pt requires physical assist for support to complete 1 and 2 steps with hand rail at this time due to weakness and fatigue. Pt with poor eccentric control noted on descent and momentum to complete ascent. Pt is unsafe to complete steps without assist at this time. Plan Continue acute PT per plan of care. Safety/Education Safety Safety Devices in place: All fall risk precautions in place, call light within reach, left in chair, gait belt, patient at risk for falls, nurse notified, and no alarms engaged upon entry Restraints: N/A Education Education Given To: patient Education Provided: PT Role, PT Goals, Gait Training, Plan of Care, Transfer Training, Equipment, Fall Prevention Education, Discharge Recommendations, and Benefits of Increasing Activity Education Method: Verbal, Demonstration, and Teach Back Barriers to Learning: None Education Outcome: Verbalized Understanding, Demonstrated Understanding, and Continued Education Needed Outcome Measures AM-PAC AM-PAC Inpatient Mobility Raw Score : 17 AM-PAC Inpatient Mobility Raw Score (No Stairs) : 15 Goals Patient Stated Goal: Patient states he wants to get stronger and walk better. Encounter Problems Encounter Problems (Active) Balance Patient will maintain dynamic standing balance for 5 minutes with modified independence in order to demonstrate decreased risk of falling. (Progressing) Start: 04/23/24 Expected End: 04/30/24 Exercise Patient will complete lower extremity exercises for 1-2 sets / 10 reps in order to improve strength and activity tolerance for mobility. (Not Addressed) Start: 04/23/24 Expected End: 04/30/24 Mobility Patient will ambulate 100 feet with modified independence and least restrictive device in order to improve safety and independence with mobility. (Progressing) Start: 04/23/24 Expected End: 04/30/24 Patient will be able to go up and down a curb/step 2x with least restrictive device and supervision in order to safely negotiate home. (Progressing) Start: 04/23/24 Expected End: 04/30/24 Transfers Patient will perform bed mobility with modified independence in order to improve independence and prepare for out of bed mobility. (Not Addressed) Start: 04/23/24 Expected End: 04/30/24 Patient will complete functional transfers with least restrictive device with modified independence in order to prepare for ambulation. (Progressing) Start: 04/23/24 Expected End: 04/30/24 Therapy Time Individual Co-treatment Time In 1350 Time Out 1421 Minutes 31 Timed Code Treatment Minutes: 26 Minutes (gait x 1, theract x 1) Debora Li PT Hospitalist Progress Note 04/26/2024 Subjective: Admit Date: 04/22/2024 PCP: Jani Quezada Room#: B4-451/B4-451 A BRIEF HOSPITAL COURSE: Admitted for alcohol use Interval History: No new complaints. Tolerating diet well. 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 Nausea and vomiting 12/22/22-12/26/22 admitted at [facility] Pain management Sleep apnea noncompliant with device LABS: CBC: Recent Labs 04/24/24 0838 04/25/24 0231 WBC 4.5 8.4 RBC 3.62* 3.88* HGB 10.9* 11.7* HCT 33.1* 35.6* MCV 91.4 91.8 RDW 14.2 14.1 PLT 137* 127* BMP: Recent Labs 04/24/24 0838 04/25/24 0231 NA 132* 131* K 4.0 4.0 CL 100 100 CO2 26 25 BUN 7* 10 CREATININE 0.87 0.89 GLUCOSE 147* 114* CALCIUM 8.8 9.2 ANIONGAP 6 6 LIVER PROFILE: Recent Labs 04/24/24 0838 AST 23 ALT 21 BILITOT 0.6 ALKPHOS 53 PROT 6.2* PT/INR: No results for input(s): "PROTIME", "INR" in the last 72 hours. CARDIAC ENZYMES: No results for input(s): "TROPONINI" in the last 72 hours. Procalcitonin: No results found for: "PROCAL" COVID-19 PCR: No results for input(s): "COVID19" in the last 72 hours. Objective: Vitals: BP (!) 157/104 (BP Location: Left arm, Patient Position: Lying) Pulse 85 Temp 36.8 C (98.2 F) (Temporal) Resp 18 Ht 5' 10" (1.778 m) Wt 165 lb 3.2 oz (74.9 kg) SpO2 99% BMI 23.70 kg/m Pulse Ox: SpO2 Av.8 % Min: 98 % Max: 100 % Supplemental O2: Physical Exam Constitutional: Appearance: Normal appearance. Cardiovascular: Rate and Rhythm: Normal rate and regular rhythm. Heart sounds: Normal heart sounds. Pulmonary: Effort: Pulmonary effort is normal. Breath sounds: Normal breath sounds. Abdominal: General: Bowel sounds are normal. Palpations: Abdomen is soft. Musculoskeletal: Comments: Trace edema LE Neurological: General: No focal deficit present. Mental Status: He is alert and oriented to person, place, and time. Medications: Scheduled PRN enoxaparin, 40 mg, SubCUTAneous, Daily folic acid, 1 mg, Oral, Daily insulin lispro, 0-12 Units, SubCUTAneous, TID WC And insulin lispro, 0-12 Units, SubCUTAneous, Nightly levothyroxine, 75 mcg, Oral, qAM AC losartan, 100 mg, Oral, Daily mirtazapine, 15 mg, Oral, Nightly pantoprazole, 40 mg, Oral, BID AC PHENobarbital, 64.8 mg, Oral, q6h sertraline, 50 mg, Oral, Daily tamsulosin, 0.4 mg, Oral, Daily thiamine, 100 mg, Oral, Daily PRN medications: acetaminophen OR acetaminophen, albuterol, dextrose, dextrose, glucagon (rDNA), glucose, hydrALAZINE, ondansetron ODT OR ondansetron, polyethylene glycol (PEG) 3350 Continuous Assessment Data: (CAT1) Reviewed 1 notes from different specialty or health system (each=1). (LOW: 2x CAT1 or independent historian MOD: 3x CAT1 or 1x CAT3 EXTENSIVE: 3x CAT1 and 1x CAT3) Acute, acute on chronic, unstable/uncontrolled chronic problems/diagnoses: Alcohol intoxication Alcohol use disorder Major depressive disorder, recurrent, severe, without psychosis Unspecified anxiety disorder DM2 Electrolyte imbalance Thrombocytopenia Stable chronic problems affecting care, new non-acute diagnoses: Hypertension Anemia Depression Hep C 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 GERD SHAYLA BPH Chronic pain Plan As a result of the above findings & factors, the following mgmt was pursued: - psych meds adjusted by psychiatry - addiction medicine consulted>> decreased dos of phenobarb today to 64.5 - labs in am - am labs, replace lytes prn - PT/OT/CM/SW - delirium precautions: increase activity - DVT prophylaxis: enoxaparin and encourage ambulation Advance Directive: Full Code Anticipated Discharge Extended Emergency Contact Information Primary Emergency Contact: Kingsley Carl [place] Relation: Significant Other Ced Koenig MD Division of Hospitalist Medicine [facility] Images from the original note were not included. Addiction Medicine Patient: Woody Ni Admit Date: 04/22/2024 Primary Care Physician: Jani Quezada History of Present Illness Diagnosis: Alcohol dependence/withdrawal Patient continues to be monitored by chemical dependency services. As of this morning patient was receiving phenobarbital 64.8 mg every 4 hours for alcohol withdrawal. In reference to withdrawal symptomatology, the patient stated that he feels better, but continues to experience intermittent anxiety, restlessness, tremulousness. It is my understanding that this patient ultimately will be transitioning to a nursing facility. Consequently, arrangements for the intensive outpatient program will have to be held for now and addressed while he is at the [facility]pc. Social History Socioeconomic History Marital status: Spouse name: Not on file Number of children: Not on file Years of education: Not on file Highest education level: Not on file Occupational History Not on file Tobacco Use Smoking status: Every Day Types: Cigars Smokeless tobacco: Former Vaping Use Vaping status: Every Day Substances: CBD, canabis Devices: Disposable Substance and Sexual Activity Alcohol use: Yes Alcohol/week: 105.0 standard drinks of alcohol Types: 105 Cans of beer per week Comment: 15-18 beers/day Drug use: Yes Types: Marijuana Comment: daily Sexual activity: Not on file Other Topics Concern Not on file Social History Narrative Not on file Social Determinants of Health Financial Resource Strain: High Risk (01/15/2024) Overall Financial Resource Strain (CARDIA) Difficulty of Paying Living Expenses: Hard Food Insecurity: Food Insecurity Present (01/15/2024) Hunger Vital Sign Worried About Running Out of Food in the Last Year: Sometimes true Ran Out of Food in the Last Year: Sometimes true Transportation Needs: No Transportation Needs (01/15/2024) PRAPARE - Transportation Lack of Transportation (Medical): No Lack of Transportation (Non-Medical): No Physical Activity: Unknown (01/15/2024) Exercise Vital Sign Days of Exercise per Week: 0 days Minutes of Exercise per Session: Not on file Recent Concern: Physical Activity - Inactive (01/15/2024) Exercise Vital Sign Days of Exercise per Week: 0 days Minutes of Exercise per Session: 0 min Stress: No Stress Concern Present (04/03/2023) [employer] [place] [employer] - Occupational Stress Questionnaire Feeling of Stress : Not at all Social Connections: Socially Isolated (12/07/2023) Social Connection and Isolation Panel [NHANES] Frequency of Communication with Friends and Family: Never Frequency of Social Gatherings with Friends and Family: Never Attends [employer] Services: Never Active Member of Clubs or Organizations: No Attends Club or Organization Meetings: Not on file Marital Status: Living with partner Intimate Partner Violence: Not At Risk (04/22/2024) Humiliation, Afraid, Rape, and Kick questionnaire Fear of Current or Ex-Partner: No Emotionally Abused: No Physically Abused: No Sexually Abused: No Housing Stability: Low Risk (01/15/2024) Housing Stability Vital Sign Unable to Pay for Housing in the Last Year: No Number of Places Lived in the Last Year: 1 Unstable Housing in the Last Year: No Recent Concern: Housing Stability - High Risk (10/21/2023) Housing Stability Vital Sign Unable to Pay for Housing in the Last Year: Yes Number of Places Lived in the Last Year: 1 Unstable Housing in the Last Year: No 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 Nausea and vomiting 12/22/22-12/26/22 admitted at [facility] Pain management Sleep apnea noncompliant with device Past Surgical History: Procedure Laterality Date BACK SURGERY x 2 CHOLECYSTECTOMY LAMINECTOMY LAP,CHOLECYSTECTOMY (HISTORICAL) N/A 01/05/2023 WISDOM TOOTH EXTRACTION Family History Problem Relation Name Age of Onset Depression Mother Depression Maternal Grandmother Labs Recent Results (from the past 48 hour(s)) POCT glucose meter Collection Time: 04/24/24 5:25 PM Result Value Ref Range Glucose 98 70 - 100 mg/dL POCT glucose meter Collection Time: 04/24/24 7:43 PM Result Value Ref Range Glucose 176 (H) 70 - 100 mg/dL CBC auto differential Collection Time: 04/25/24 2:31 AM Result Value Ref Range Auto WBC 8.4 3.6 - 10.7 10*3/uL RBC 3.88 (L) 4.40 - 5.90 10*6/uL Hemoglobin 11.7 (L) 13.0 - 18.0 g/dL Hematocrit 35.6 (L) 40.0 - 52.0 % MCV 91.8 77.0 - 99.0 fL MCH 30.2 26.0 - 34.0 pg MCHC 32.9 30.5 - 36.0 % RDW 14.1 11.5 - 15.0 % Platelets 127 (L) 140 - 440 10*3/uL MPV 8.7 (L) 9.0 - 12.7 fL Basic metabolic panel Collection Time: 04/25/24 2:31 AM Result Value Ref Range SODIUM 131 (L) 135 - 145 mmol/L POTASSIUM 4.0 3.5 - 5.1 mmol/L CHLORIDE 100 98 - 107 mmol/L CARBON DIOXIDE 25 22 - 30 mmol/L UREA NITROGEN 10 9 - 20 mg/dL CREATININE 0.89 0.66 - 1.25 mg/dL GLUCOSE 114 (H) 70 - 100 mg/dL CALCIUM 9.2 8.4 - 10.4 mg/dL ANION GAP 6 3 - 13 mmol/L eGFR >90.0 >60.0 mL/min/1.73m*2 MANUAL DIFFERENTIAL (CELLAVISION) Collection Time: 04/25/24 2:31 AM Result Value Ref Range RBC Morphology Normal Neutrophils % 88 (H) 38 - 82 % Bands % 7 (H) <=0 % Lymphocytes % 2 (L) 15 - 45 % Monocytes % 1 (L) 5 - 13 % Eosinophils % 2 0 - 6 % Absolute Neutrophil Count 8.0 (H) 1.8 - 7.5 10*3/uL Bands Absolute 0.6 (H) <=0.0 10*3/uL Lymphocytes Absolute 0.2 (L) 1.0 - 4.3 10*3/uL Monocytes Absolute 0.1 0.0 - 0.9 10*3/uL Eosinophils Absolute 0.2 0.0 - 0.5 10*3/uL Neutrophils Manual 88 Lymphocytes Manual 2 Monocytes Manual 1 Eosinophils Manual 2 (H) 0 - 1 Basophils Manual Bands Manual 7 Metamyelocytes Manual Myelocytes Manual Promyelocytes Manual Blasts Manual Atypical Lymphocytes Manual Unclassified Cells, Manual POCT glucose meter Collection Time: 04/25/24 6:07 AM Result Value Ref Range Glucose 110 (H) 70 - 100 mg/dL POCT glucose meter Collection Time: 04/25/24 11:46 AM Result Value Ref Range Glucose 104 (H) 70 - 100 mg/dL POCT glucose meter Collection Time: 04/25/24 4:39 PM Result Value Ref Range Glucose 128 (H) 70 - 100 mg/dL POCT glucose meter Collection Time: 04/25/24 8:20 PM Result Value Ref Range Glucose 105 (H) 70 - 100 mg/dL POCT glucose meter Collection Time: 04/26/24 7:42 AM Result Value Ref Range Glucose 99 70 - 100 mg/dL POCT glucose meter Collection Time: 04/26/24 11:08 AM Result Value Ref Range Glucose 107 (H) 70 - 100 mg/dL Medications Home Meds: Prior to Admission medications Medication Sig Start Date End Date Taking? Authorizing Provider albuterol 108 (90 Base) MCG/ACT inhaler Inhale 2 puffs every 6 hours as needed for shortness of breath or wheezing. Yes Historical Provider, diphenhydrAMINE-zinc acetate (BENADryl) cream Apply topically 3 times daily as needed for itching. 01/26/24 01/25/25 Yes Jose Maria Abad MD hydrOXYzine HCl (Atarax) 25 MG tablet Take 25 mg by mouth every 6 hours as needed for itching. Yes Historical Provider, ipratropium-albuterol (Duo-Neb) 0.5-2.5 mg/3 mL nebulizer solution every 6 hours. Yes Historical Provider, magnesium chloride 64 MG EC tablet Take 1 tablet (64 mg) by mouth daily (with breakfast). 01/21/24 Yes Ethel Anna, DO niacin 100 MG tablet Every 24 hours. Yes Historical Provider, pantoprazole (ProtoNix) 40 MG EC tablet Take 1 tablet (40 mg) by mouth in the morning and 1 tablet (40 mg) in the evening. Take before meals. Do not crush, chew, or split.. 10/27/23 10/26/24 Yes Kacie Benz, DO tamsulosin (Flomax) 0.4 MG 24 hr capsule Take 0.4 mg by mouth daily. 01/27/22 Yes Historical Provider, thiamine (Vitamin B-1) 100 MG tablet Take 1 tablet (100 mg) by mouth daily. Do not start before April 16, 2023. 04/16/23 Yes Ced Koenig MD alendronate (Fosamax) 70 MG tablet Take 70 mg by mouth once a week. 05/19/17 Historical Provider, cyanocobalamin (Vitamin B-12) 1000 MCG/ML injection 1 mL intramuscularly once a month Historical Provider, diphenhydrAMINE (BENADryl) 50 MG capsule Take 1 capsule (50 mg) by mouth every 6 hours as needed for itching. 01/26/24 02/25/24 Jose Maria Abad MD famotidine (Pepcid) 20 MG tablet Take 1 tablet (20 mg) by mouth 2 times daily. 04/15/23 04/14/24 Ced Koenig MD fluticasone (Flonase) 50 MCG/ACT nasal spray Administer 1 spray into each nostril daily as needed. 04/27/17 Historical Provider, hydrOXYzine pamoate (Vistaril) 25 MG capsule Take 1 capsule (25 mg) by mouth every 8 hours as needed for anxiety for up to 10 days. 01/26/24 02/05/24 Jose Maria Abad MD ketoconazole (NIZOral) 2 % shampoo EVERY THREE DAYS 11/18/19 Historical Provider, levothyroxine (Synthroid, Levoxyl) 50 MCG tablet TAKE 1 TABLET BY MOUTH DAILY Patient taking differently: Take 75 mcg by mouth every morning (before breakfast). 06/06/22 01/18/24 Nicolas Qiu losartan (Cozaar) 100 MG tablet Take 1 tablet (100 mg) by mouth daily. Do not start before February 15, 2023. 02/15/23 02/15/24 Kacie Benz DO mirtazapine (Remeron) 15 MG tablet Take 1 tablet (15 mg) by mouth Nightly. 04/25/24 06/24/24 Carmen Jeronimo MD nicotine (Nicoderm, Step 1) 21 MG/24HR patch Place 1 patch on the skin daily. 10/27/23 11/26/23 Kacie Benz DO nicotine polacrilex (Commit) 2 MG lozenge Dissolve 1 lozenge (2 mg) in the mouth every 2 hours as needed for smoking cessation. 01/20/24 02/19/24 Ethel Anna DO nitroglycerin (Nitrostat) 0.4 MG SL tablet 1 tab(s) sublingually every 5 minutes x 3 doses prn Historical Provider, sertraline (Zoloft) 50 MG tablet Take 1 tablet (50 mg) by mouth daily. 04/25/24 06/24/24 Carmen Jeronimo MD tiZANidine (Zanaflex) 4 MG tablet Take 1 tablet (4 mg) by mouth every 6 hours as needed for muscle spasms for up to 10 days. 01/26/24 02/05/24 Jose Maria Abad MD mirtazapine (Remeron) 15 MG tablet Take 1 tablet (15 mg) by mouth Nightly. 01/26/24 04/25/24 Jose Maria Abad MD Inpatient Scheduled Meds: enoxaparin, 40 mg, SubCUTAneous, Daily folic acid, 1 mg, Oral, Daily insulin lispro, 0-12 Units, SubCUTAneous, TID WC And insulin lispro, 0-12 Units, SubCUTAneous, Nightly levothyroxine, 75 mcg, Oral, qAM AC losartan, 100 mg, Oral, Daily mirtazapine, 15 mg, Oral, Nightly pantoprazole, 40 mg, Oral, BID AC PHENobarbital, 64.8 mg, Oral, q6h sertraline, 50 mg, Oral, Daily tamsulosin, 0.4 mg, Oral, Daily thiamine, 100 mg, Oral, Daily Inpatient PRN Meds: PRN medications: acetaminophen OR acetaminophen, albuterol, dextrose, dextrose, glucagon (rDNA), glucose, hydrALAZINE, ondansetron ODT OR ondansetron, polyethylene glycol (PEG) 3350 Exam Vitals: 04/25/24 2139 04/26/24 0147 04/26/24 0546 04/26/24 0742 BP: 111/72 111/63 151/83 (!) 157/104 BP Location: Right arm Left arm Patient Position: Lying Lying Pulse: 88 79 85 85 Resp: 18 18 18 Temp: 36.8 C (98.2 F) 36.6 C (97.8 F) 36.8 C (98.2 F) TempSrc: Temporal Temporal Temporal SpO2: 98% 98% 99% Weight: Height: Physical Exam Patient slightly flushed but is not diaphoretic. Moderate tremors persist. Still anxious, restless. Oriented x 4. No auditory, tactile or visual disturbances Assessment & Plan Diagnosis: Alcohol dependence/withdrawal Phenobarbital decreased to 64.8 mg every 6 hours. Will monitor. Flavio Sherman MD Addiction Medicine 04/26/2024 at 12:12 PM --50-- minutes were spent reviewing the patient's records, evaluating the patient, entering orders, coordinating care with the treatment team, and creating a progress note. Narrative portions of the note are written utilizing [employer] software. While every effort is made to dictate clearly and proofread, errors in the dictation may still occur. If there are any questions regarding the dictation please do not hesitate to contact the author. Images from the original note were not included. OCCUPATIONAL THERAPY [facility] Treatment Note Name/MRN: Woody Ni ([id number]) Date of : 1960 Age: 64 y.o. [facility]: [facility] A Visit #: 1 out of 5 visits Discharge Recommendation: Detention Facility, Continue to assess pending progress Equipment Needed: Yes Other: TBD at next level of care Prior Level of Function ADL Assistance: Needs Assist assist for LB ADL's. Sponge bathes. Ambulation Assistance: Independent Transfer Assistance: Independent Assessment Pt tolerated session fair and is making progress towards OT POC. He completed bed mobility with SBA and increased time, and transfers/mobility with CGA. Pt is limited by impaired strength, balance, and endurance. He would continue to benefit from skilled OT services in order to improve safety and IND in occupational performance. OT rec is SNF upon planned discharge. Subjective Pt supine in bed upon arrival, pleasant and agreeable. Per RN, pt okay to see. Pain: Pt denies any current pain. Medical Precautions: No active isolations Proper PPE donned/doffed in accordance with facility standards. Fall Risk: Maurice Fall Risk Score: 50 (High Risk) Precautions/Restrictions: N/A Family/Caregiver Present: none Objective Bed Mobility Supine to sit: SBA Sit to supine: SBA Pt performed bed mobility to/from supine to EOB with SBA, HOB elevated and with use of bed rails. No physical assist required. Denied dizziness with positional change. Transfers/Mobility Sit to stand: Contact Guard Stand to sit: Contact Guard Standing balance: Contact Guard Functional mobility: Contact Guard Pt performed STS to/from EOB to FWW with CGA, VC's for hand placement for push up from/reach back to seated surface with good carry over. CGA for standing balance at FWW, slight instability but no true LOB noted. Pt performed functional household distance mobility with use of FWW, he tolerated fair and demo'd good safety awareness. He required seated recovery period d/t fatigue. Device(s) used: front wheeled walker and hospital bed Cognition Exceptions - Safety judgement: decreased awareness of need for safety - Problem solving: assistance required to generate solutions, assistance required to implement solutions, assistance required to identify errors made, and assistance required to correct errors made - Insights: decreased awareness of deficits Plan Continue acute OT per plan of care. Safety/Education Safety Safety Devices in place: All fall risk precautions in place, call light within reach, left in bed, gait belt, patient at risk for falls, nurse notified, and no alarms engaged upon entry Restraints: No Education Education Given To: patient Education Provided: OT Role, Plan of Care, Transfer Training, Energy Conservation, Fall Prevention Education, Discharge Recommendations, and Benefits of Increasing Activity Education Method: Verbal, Demonstration, and Teach Back Barriers to Learning: None Education Outcome: Verbalized Understanding, Demonstrated Understanding, and Continued Education Needed AM-PAC AM-PAC Inpatient Daily Activity Raw Score: 21 ADL Inpatient CMS G-Code Modifier: CJ Goals Patient Stated Goal: get stronger Encounter Problems Encounter Problems (Active) Balance Patient will tolerate standing for 4 minutes to allow for completion of ADL tasks, SBA level. (Progressing) Start: 04/23/24 Expected End: 04/28/24 Dressings Lower Extremities Patient will complete lower body ADL's at SBA level. (Not Addressed) Start: 04/23/24 Expected End: 04/28/24 Mobility pt will complete functional mobility to bathroom with LRAD at SBA level. (Progressing) Start: 04/23/24 Expected End: 04/28/24 Therapeutic Exercise pt will demo good participation in BUE exercises to increase endurance and strength for participation in ADL tasks. (Not Addressed) Start: 04/23/24 Expected End: 04/28/24 Toileting Patient will complete toileting tasks at standard toilet with SBA. (Not Addressed) Start: 04/23/24 Expected End: 04/28/24 Transfers pt will complete std toilet transfers at SBA level (Progressing) Start: 04/23/24 Expected End: 04/28/24 Therapy Time Individual Co-treatment Time In 0152 Time Out 0209 Minutes 17 Timed Code Treatment Minutes: 17 Minutes (1 THER ACT) BERTA Valdovinos Hospitalist Progress Note 04/25/2024 Subjective: Admit Date: 04/22/2024 PCP: Jani Quezada Room#: E3-560/G7-295 A Brief Hospital course: Presents for alcohol detox. He has been depressed over his father dying in February, his dog dying and his spouse leaving him in March. He drinks a case of beer a day. He is intoxicated. He would like help with detox. He has been drinking for many years. He has had withdrawal seizures in the past. Admitted for further evaluation and management. Interval History: 04/25/2024-Patient had some nausea and vomiting overnight. Feels better today. Less tremulous. Case and plan discussed with patient. All questions answered. 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 Nausea and vomiting 12/22/22-12/26/22 admitted at [facility] Pain management Sleep apnea noncompliant with device Adult diet Regular; Low Sodium (2 gm); 1800 ml 24HR INTAKE/OUTPUT: Intake/Output Summary (Last 24 hours) at 04/25/2024 1734 Last data filed at 04/25/2024 0744 Gross per 24 hour Intake 240 ml Output -- Net 240 ml LABS: CBC: Recent Labs 04/23/2421904/24/24 0838 04/25/24 0231 WBC 7.6 4.5 8.4 RBC 3.72* 3.62* 3.88* HGB 11.3* 10.9* 11.7* HCT 32.8* 33.1* 35.6* MCV 88.2 91.4 91.8 RDW 13.9 14.2 14.1 PLT 200 137* 127* BMP: Recent Labs 04/23/2421904/24/24 0838 04/25/24 0231 NA 128* 132* 131* K 3.4* 4.0 4.0 CL 93* 100 100 CO2 22 26 25 BUN 5* 7* 10 CREATININE 0.94 0.87 0.89 GLUCOSE 127* 147* 114* CALCIUM 8.5 8.8 9.2 ANIONGAP 13 6 6 LIVER PROFILE: Recent Labs 04/22/24211906/24 0220 04/24/24 0838 AST 53* 45 23 ALT 31 26 21 BILITOT 0.5 0.5 0.6 ALKPHOS 73 49 53 PROT 7.5 6.3 6.2* PT/INR: No results for input(s): "PROTIME", "INR" in the last 72 hours. CARDIAC ENZYMES: No results for input(s): "TROPONINI" in the last 72 hours. Procalcitonin: No results found for: "PROCAL" COVID-19 PCR: No results for input(s): "COVID19" in the last 72 hours. Objective: Vitals: BP 105/66 (BP Location: Right arm, Patient Position: Lying) Pulse 99 Temp 36.6 C (97.8 F) (Temporal) Resp 17 Ht 5' 10" (1.778 m) Wt 165 lb 3.2 oz (74.9 kg) SpO2 96% BMI 23.70 kg/m Pulse Ox: SpO2 Av.7 % Min: 94 % Max: 97 % Supplemental O2: Physical Exam Cardiovascular: Rate and Rhythm: Normal rate and regular rhythm. Pulses: Normal pulses. Heart sounds: Normal heart sounds. Pulmonary: Effort: Pulmonary effort is normal. Breath sounds: Normal breath sounds. Abdominal: General: Bowel sounds are normal. Palpations: Abdomen is soft. Medications: Scheduled PRN enoxaparin, 40 mg, SubCUTAneous, Daily folic acid, 1 mg, Oral, Daily insulin lispro, 0-12 Units, SubCUTAneous, TID WC And insulin lispro, 0-12 Units, SubCUTAneous, Nightly levothyroxine, 75 mcg, Oral, qAM AC losartan, 100 mg, Oral, Daily mirtazapine, 15 mg, Oral, Nightly pantoprazole, 40 mg, Oral, BID AC PHENobarbital, 64.8 mg, Oral, Q4H sertraline, 50 mg, Oral, Daily tamsulosin, 0.4 mg, Oral, Daily thiamine, 100 mg, Oral, Daily PRN medications: acetaminophen OR acetaminophen, albuterol, dextrose, dextrose, glucagon (rDNA), glucose, hydrALAZINE, ondansetron ODT OR ondansetron, polyethylene glycol (PEG) 3350 Continuous Assessment Data: (CAT1) Reviewed 3 or more notes from different specialty or health system (each=1). (LOW: 2x CAT1 or independent historian MOD: 3x CAT1 or 1x CAT3 EXTENSIVE: 3x CAT1 and 1x CAT3) Acute, acute on chronic, unstable/uncontrolled chronic problems/diagnoses: Alcohol intoxication Alcohol use disorder Major depressive disorder, recurrent, severe, without psychosis Unspecified anxiety disorder DM2 Electrolyte imbalance Stable chronic problems affecting care, new non-acute diagnoses: Hypertension Anemia Depression Hep C 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 GERD SHAYLA BPH Chronic pain Plan As a result of the above findings & factors, the following mgmt was pursued: - CIWA protocol, scheduled phenobarb, addiction medicine following and patient will follow up outpatient at [facility] - psych recs noted and appreciated, continue Remeron, started on Zoloft and continue at discharge - am labs, replace lytes prn - PT/OT/CM/SW - delirium precautions: increase activity - DVT prophylaxis: enoxaparin and encourage ambulation Complexity: Acute illness or injury posing a threat to life or body function (HIGH). Risk: Prescription drug/IVF/colloid was initiated, discontinued, adjusted; or reviewed with decision to maintain current orders (MOD). Advance Directive: Full Code Anticipated Discharge - Date - 04/26/24-04/27/24? - Location - Home - Pending the following - facility choice, insurance auth/precert Total time spent (which include face to face and non face to face encounters) : 39 minutes Extended Emergency Contact Information Primary Emergency Contact: MalcomKingsley Mobile Relation: Significant Other Reid Fu DO Division of Hospitalist Medicine [place] [facility] [place] [place] from the original note were not included. PHYSICAL THERAPY [facility] Treatment Note Name/MRN: Woody Ni ([id number]) Date of : 1960 Age: 64 y.o. Room/Bed: B4451/B4-043 A Visit #: 1 out of 7 visits . Discharge Recommendation: Continue to assess pending progress, Detention Facility Other: TBD at next level of care Prior Level of Function ADL Assistance: Needs Assist - assist for LB dressing and some assist for bathing Ambulation Assistance: Independent Device(s) used: quad cane Transfer Assistance: Independent Assessment Pt demonstrates continued motivation to participate in PT in order to improve strength and activity tolerance for home going. Pt demonstrates improved stability this date with FWW and improved distance for ambulation. Pt remains a high fall risk secondary to his increased fatigue and weakness. Pt requires CGA with FWW and CGA/Eliezer with no device. could benefit from continued PT in order to progress toward goals. Subjective Patient very kind and pleasant and agreeable to therapy session this date. Per RN patient okay for therapy. Observation: no lines present Pain: Pt denies any current pain. Medical Precautions: No active isolations Proper PPE donned/doffed in accordance with facility standards. Fall Risk: Maurice Fall Risk Score: 50 (High Risk) Precautions/Restrictions: N/A Overall Cognitive Status: WFL Overall Orientation Status: Oriented x4 Family/Caregiver Present: none Objective Bed Mobility Supine to sit: Supervision Sit to supine: NT patient up in bathroom end of session Scooting: Supervision Denies dizziness with positional changes. Transfers/Mobility Sit to stand: SBA, to FWW and to no device from EOB Stand to sit: SBA Denies dizziness on initial stance. No true LOB or instability. Cues for safe placement of FWW. Device(s) used: none and front wheeled walker Ambulation Ambulation 1 Assistive device(s) used: front wheeled walker Assist level: SBA, Contact Guard Distance (ft): 80 ft x 4 (standing rest breaks) Quality of gait: No LOB, reciprocal stepping, B foot clearance, slow heide, path deviations Pt demonstrates increased tolerance for mobility this date demonstrating ability to complete multiple bouts of ambulation with standing rest breaks between trials in order to improve functional activity tolerance and strength. Pt continues to c/o fatigue and demonstrates occasional instability requiring CGA and FWW. Ambulation 2 Assistive device(s) used: none Assist level: Contact Guard Distance (ft): 10 ft x 1 Quality of gait: reciprocal stepping, uneven step length, wide JM, slow heide, postural sway, path deviations, instability through all phases Pt demonstrates instability with no device and need for B UE support at this time. Pt agreeable to continue to use FWW at this time. Exercises Gluteal Sets: 1 set / 10 reps in sitting Marchin set / 1 minute B LE in sitting Knee Long Arc Quad: 1 set / 10 reps R and L LE in sitting Ankle Pumps: 1 set / 10 reps B LE in sitting Comments: Initiated B LE exercises in order to improve strength and activity tolerance for mobility. Pt educated on technique and rationale for exercises in order to improve patients understanding and compliance with exercises. Pt demonstrates good understanding and ability to complete at this time. Plan Continue acute PT per plan of care. Safety/Education Safety Safety Devices in place: All fall risk precautions in place, call light within reach, left in chair, gait belt, patient at risk for falls, nurse notified, no alarms engaged upon entry, and left in bathroom Restraints: N/A Education Education Given To: patient Education Provided: PT Role, PT Goals, Gait Training, Plan of Care, Home Exercise Program, Transfer Training, Equipment, Fall Prevention Education, Discharge Recommendations, and Benefits of Increasing Activity Education Method: Verbal, Demonstration, and Teach Back Barriers to Learning: None Education Outcome: Verbalized Understanding, Demonstrated Understanding, and Continued Education Needed Outcome Measures AM-PAC AM-PAC Inpatient Mobility Raw Score (No Stairs) : 15 Goals Patient Stated Goal: Patient states he wants to get stronger and walk better. Encounter Problems Encounter Problems (Active) Balance Patient will maintain dynamic standing balance for 5 minutes with modified independence in order to demonstrate decreased risk of falling. (Progressing) Start: 04/23/24 Expected End: 04/30/24 Exercise Patient will complete lower extremity exercises for 1-2 sets / 10 reps in order to improve strength and activity tolerance for mobility. (Progressing) Start: 04/23/24 Expected End: 04/30/24 Mobility Patient will ambulate 100 feet with modified independence and least restrictive device in order to improve safety and independence with mobility. (Progressing) Start: 04/23/24 Expected End: 04/30/24 Patient will be able to go up and down a curb/step 2x with least restrictive device and supervision in order to safely negotiate home. (Not Addressed) Start: 04/23/24 Expected End: 04/30/24 Transfers Patient will perform bed mobility with modified independence in order to improve independence and prepare for out of bed mobility. (Progressing) Start: 04/23/24 Expected End: 04/30/24 Patient will complete functional transfers with least restrictive device with modified independence in order to prepare for ambulation. (Progressing) Start: 04/23/24 Expected End: 04/30/24 Therapy Time Individual Co-treatment Time In 1037 Time Out 1104 Minutes 27 Timed Code Treatment Minutes: 25 Minutes (gait x 1, therex x 1) Debora Li PT Pt had a couple episodes of emesis- yellow and undigested food. Zofran given and vitals assessed. Pt expresses that this is common for him to have emesis like this. Pt reported feeling better after IV Zofran was given. Nutrition rescreen completed. Patient assigned a level 1 for nutrition care. Hospitalist Progress Note 04/24/2024 Subjective: Admit Date: 04/22/2024 PCP: Jani Quezada Room#: B4-451/B4-451 A Brief Hospital course: Presents for alcohol detox. He has been depressed over his father dying in February, his dog dying and his spouse leaving him in March. He drinks a case of beer a day. He is intoxicated. He would like help with detox. He has been drinking for many years. He has had withdrawal seizures in the past. Admitted for further evaluation and management. Interval History: 04/24/2024-No overnight issues. Patient states that he still has shaking in hands/tremulous. Case and plan discussed with patient. All questions answered. 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 Nausea and vomiting 12/22/22-12/26/22 admitted at [facility] Pain management Sleep apnea noncompliant with device Adult diet Regular; Low Sodium (2 gm); 1800 ml 24HR INTAKE/OUTPUT: Intake/Output Summary (Last 24 hours) at 04/24/2024 1353 Last data filed at 04/24/2024 0835 Gross per 24 hour Intake 240 ml Output -- Net 240 ml LABS: CBC: Recent Labs 04/22/24211904/23/2421904/24/24 0838 WBC 11.2* 7.6 4.5 RBC 4.24* 3.72* 3.62* HGB 12.9* 11.3* 10.9* HCT 36.5* 32.8* 33.1* MCV 86.1 88.2 91.4 RDW 13.7 13.9 14.2 PLT 269 200 137* BMP: Recent Labs 04/22/24211904/23/2421904/24/24 0838 NA 127* 128* 132* K 4.2 3.4* 4.0 CL 89* 93* 100 CO2 20* 22 26 BUN 5* 5* 7* CREATININE 0.78 0.94 0.87 GLUCOSE 92 127* 147* CALCIUM 9.4 8.5 8.8 ANIONGAP 18* 13 6 LIVER PROFILE: Recent Labs 04/22/24211904/23/2421904/24/24 0838 AST 53* 45 23 ALT 31 26 21 BILITOT 0.5 0.5 0.6 ALKPHOS 73 49 53 PROT 7.5 6.3 6.2* PT/INR: No results for input(s): "PROTIME", "INR" in the last 72 hours. CARDIAC ENZYMES: No results for input(s): "TROPONINI" in the last 72 hours. Procalcitonin: No results found for: "PROCAL" COVID-19 PCR: No results for input(s): "COVID19" in the last 72 hours. Objective: Vitals: BP 122/84 (BP Location: Right arm, Patient Position: Lying) Pulse 86 Temp 36.9 C (98.5 F) (Temporal) Resp 20 Ht 5' 10" (1.778 m) Wt 165 lb 3.2 oz (74.9 kg) SpO2 92% BMI 23.70 kg/m Pulse Ox: SpO2 Av.3 % Min: 92 % Max: 99 % Supplemental O2: Physical Exam Cardiovascular: Rate and Rhythm: Normal rate and regular rhythm. Pulses: Normal pulses. Heart sounds: Normal heart sounds. Pulmonary: Effort: Pulmonary effort is normal. Breath sounds: Normal breath sounds. Abdominal: General: Bowel sounds are normal. Palpations: Abdomen is soft. Medications: Scheduled PRN enoxaparin, 40 mg, SubCUTAneous, Daily folic acid, 1 mg, Oral, Daily insulin lispro, 0-12 Units, SubCUTAneous, TID WC And insulin lispro, 0-12 Units, SubCUTAneous, Nightly levothyroxine, 75 mcg, Oral, qAM AC losartan, 100 mg, Oral, Daily mirtazapine, 15 mg, Oral, Nightly pantoprazole, 40 mg, Oral, BID AC PHENobarbital, 64.8 mg, Oral, Q4H tamsulosin, 0.4 mg, Oral, Daily thiamine, 100 mg, Oral, Daily PRN medications: acetaminophen OR acetaminophen, albuterol, dextrose, dextrose, glucagon (rDNA), glucose, hydrALAZINE, ondansetron ODT OR ondansetron, polyethylene glycol (PEG) 3350 Continuous Assessment Data: (CAT1) Reviewed 3 or more notes from different specialty or health system (each=1). (LOW: 2x CAT1 or independent historian MOD: 3x CAT1 or 1x CAT3 EXTENSIVE: 3x CAT1 and 1x CAT3) Acute, acute on chronic, unstable/uncontrolled chronic problems/diagnoses: Alcohol intoxication Alcohol use disorder Depression DM2 Electrolyte imbalance Stable chronic problems affecting care, new non-acute diagnoses: Hypertension Anemia Depression Hep C 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 GERD SHAYLA BPH Chronic pain Plan As a result of the above findings & factors, the following mgmt was pursued: - CIWA protocol, scheduled phenobarb, addiction medicine consulted - am labs, replace lytes prn - PT/OT/CM/SW - delirium precautions: increase activity - DVT prophylaxis: enoxaparin and encourage ambulation Complexity: Acute illness or injury posing a threat to life or body function (HIGH). Risk: Prescription drug/IVF/colloid was initiated, discontinued, adjusted; or reviewed with decision to maintain current orders (MOD). Advance Directive: Full Code Anticipated Discharge - Date - 04/26/24? - Location - Home - Pending the following - detox Total time spent (which include face to face and non face to face encounters) : 38 minutes Extended Emergency Contact Information Primary Emergency Contact: Kingsley Carl Mobile Relation: Significant Other Reid Fu DO Division of Hospitalist Medicine [place] [place] from the original note were not included. OCCUPATIONAL THERAPY [facility] Initial Evaluation Name/MRN: Woody Ni ([id number]) Evaluation Date: 04/23/2024 Date of : 1960 Admission Date: 04/22/2024 8:39 PM Age: 64 y.o. Room/Bed: B4-451/B4-451 A Discharge Recommendation: Detention Facility, Continue to assess pending progress Equipment Needed: Yes Other: TBD at next level of care Assessment IMPRESSION: Pt admitted to ED on 04/22 with depression and need for detox. Prior to admission, pt lived with spouse and performed ADLs with min assist and mobility indep with quad cane. Upon eval, pt required SBA for bed mobility, CGA for transfers, CGA progressing to min assist for mobility with FWW, and min for ADLs. Pt presents with the following deficits including but not limited to safety awareness, balance, activity tolerance, ADL's, transfers. Recommend SNF upon DC. Pt would benefit from skilled OT services in order to increase safety and independence in occupational tasks. Performance Deficits /Impairments: Increased Pain, Decreased Functional Mobility, Decreased ADL status, Decreased Strength, Decreased Safety Awareness, Decreased Endurance, Decreased Balance, and Decreased High Level IADLs Prognosis: Fair Decision Making: Medium Complexity Subjective OK to see pt per nurse. Pt lying in bed upon therapist arrival. Agreeable to evaluation. Pain: 0-10 pain scale: 10/10 Location: generalized 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 Nausea and vomiting 12/22/22-12/26/22 admitted at [facility] Pain management Sleep apnea noncompliant with device Past Surgical History: Past Surgical History: Procedure Laterality Date BACK SURGERY x 2 CHOLECYSTECTOMY LAMINECTOMY LAP,CHOLECYSTECTOMY (HISTORICAL) N/A 01/05/2023 WISDOM TOOTH EXTRACTION Admission Diagnosis: Patient Active Problem List Diagnosis Date Noted Alcohol use disorder 04/22/2024 Other pancytopenia (CMS/HCC) (HCC) 01/20/2024 Alcohol withdrawal syndrome without complication (HCC) 01/15/2024 Moderate malnutrition (CMS/HCC) (HCC) 10/22/2023 Alcohol induced acute pancreatitis without necrosis or infection 10/20/2023 Recurrent falls 07/01/2023 Repeated falls 06/26/2023 Alcohol abuse 06/22/2023 Severe malnutrition (CMS/HCC) (HCC) 04/11/2023 Severe alcohol use disorder (HCC) 04/02/2023 Alcohol withdrawal syndrome with complication (HCC) 04/02/2023 Gallbladder sludge 01/05/2023 RUQ pain 01/05/2023 Acute on chronic cholecystitis 01/05/2023 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) 01/05/2023 Acute kidney injury (HCC) 12/22/2022 [place] (acute kidney injury) (HCC) 12/22/2022 Chronic pain syndrome 11/06/2022 Complication of surgical procedure 11/06/2022 Intercostal pain 11/06/2022 Low back pain 11/06/2022 Mild recurrent major depression (HCC) 11/06/2022 Myalgia 11/06/2022 Right hip pain 11/06/2022 Shoulder joint pain 11/06/2022 Intractable nausea and vomiting 06/05/2022 Hypovolemia 06/04/2022 Chronic alcoholic hepatitis 06/04/2022 Postural dizziness with presyncope 06/04/2022 Hyponatremia 06/03/2022 Osteoarthritis of spine with radiculopathy, lumbar region 03/12/2018 Essential hypertension 08/26/2017 Diabetes (HCC) 08/26/2017 Cirrhosis (HCC) 08/26/2017 Asthma 08/26/2017 Thyroid disease 08/26/2017 SHAYLA (obstructive sleep apnea) 08/26/2017 HLD (hyperlipidemia) 08/26/2017 Hepatitis 08/26/2017 Lumbar stenosis 06/10/2017 Medical Precautions: No active isolations Proper PPE donned/doffed in accordance with facility standards. Fall Risk: Maurice Fall Risk Score: 35 (Medium Risk) Precautions/Restrictions: N/A Family/Caregiver Present: none Overall Cognitive Status: Exceptions - Safety judgement: decreased awareness of need for safety - Problem solving: assistance required to generate solutions, assistance required to implement solutions, assistance required to identify errors made, and assistance required to correct errors made - Insights: decreased awareness of deficits Overall Orientation Status: Oriented x4 Social/Functional History Patient admitted from home. Lives With: Spouse Type of Home: single family home Home Layout: Two Level Home Home Access: Stairs to Enter without Rails (# of stairs: 2) Bathroom Shower/Tub: Tub/Shower Combo does not use Toilet: Standard Home Equipment: quad cane Homemaking Responsibilities: Needs Assist Receives Help From: Spouse Active Environmental Field Office Manager: No Prior Level of Function ADL Assistance: Needs Assist assist for LB ADL's. Sponge bathes. Ambulation Assistance: Independent Transfer Assistance: Independent Objective ADLs LE Dressing: Min Assist Toileting: Contact Guard Don 1 slipper with SBA. Pt reports he is unable to don socks. Complete toileting on std toilet. Upper Extremity Assessment AROM: WFL PROM: WFL Strength: Exceptions: generalized weakness Vision: wears glasses at all times and and are being used during the eval Hearing: normal Bed Mobility Supine to sit: SBA Sit to supine: SBA Scooting: SBA No reports of dizziness with change of position. Use of bed features. Transfers/Functional Mobility Sit to stand: Contact Guard Stand to sit: Contact Guard Toilet: Contact Guard Standing balance: Contact Guard Functional mobility: Min Assist Device(s) used: Front wheeled walker Sit to stand from EOB, CGA. Amb throughout hallway and to the BR, use of FWW, CGA progressing to min assist with fatigue. Completes toilet transfer to std toilet, CGA. Cues for safe walker techniques. AM-PAC AM-PAC Inpatient Daily Activity Raw Score: 21 ADL Inpatient CMS G-Code Modifier: CJ Plan Pt would benefit from skilled acute OT services to address Strengthening, Balance Training, Functional Mobility Training, Endurance Training, Safety Education and Training, Patient/Caregiver Training, Equipment Evaluation/Education, and Self-Care/ADL Training. Frequency: 5 visits during current hospital admission or until additional recommendations are made Barriers: Pain, Limited family support, Limited safety awareness, Depression, Decreased endurance, Lower extremity weakness, and Long standing deficits Prognosis: good Safety/Education Safety Safety Devices in place: All fall risk precautions in place, call light within reach, left in bed, gait belt, and patient at risk for falls Restraints: N/A Education Education Given To: patient Education Provided: OT Role, Plan of Care, and Benefits of Increasing Activity Education Method: Verbal and Demonstration Barriers to Learning: None Education Outcome: Verbalized Understanding Goals Patient Stated Goal: get stronger Encounter Problems Encounter Problems (Active) Balance Patient will tolerate standing for 4 minutes to allow for completion of ADL tasks, SBA level. Start: 04/23/24 Expected End: 04/28/24 Dressings Lower Extremities Patient will complete lower body ADL's at SBA level. Start: 04/23/24 Expected End: 04/28/24 Mobility pt will complete functional mobility to bathroom with LRAD at SBA level. Start: 04/23/24 Expected End: 04/28/24 Therapeutic Exercise pt will demo good participation in BUE exercises to increase endurance and strength for participation in ADL tasks. Start: 04/23/24 Expected End: 04/28/24 Toileting Patient will complete toileting tasks at standard toilet with SBA. Start: 04/23/24 Expected End: 04/28/24 Transfers pt will complete std toilet transfers at SBA level Start: 04/23/24 Expected End: 04/28/24 Therapy Time Individual Co-treatment Time In 1317 Time Out 1334 Minutes 17 Arabella Silva OT Patient's Occupational Therapy Plan of Care supervision is transferred to a [facility] Therapy Services Occupational Therapist. Goals and/or treatment plan was established in collaboration with patient/family/other representatives. Images from the original note were not included. PHYSICAL THERAPY [facility] Initial Evaluation Name/MRN: Woody Ni ([id number]) Evaluation Date: 04/23/2024 Date of : 1960 Admission Date: 04/22/2024 8:39 PM Age: 64 y.o. Room/Bed: B4-451/B4451 A Discharge Recommendation: Detention Facility Other: TBD at next level of care Assessment IMPRESSION: Pt presents with decreased functional mobility, decreased strength, decreased safety awareness, decreased endurance and impaired balance. Pt has decreased standing balance, poor activity tolerance, decreased safety awareness and weakness requiring physical assist of 1 person in order to safely complete minimal OOB mobility placing him at a high risk of falling. Pt could benefit from skilled PT in order to address his decreased functional mobility, strength, balance and safety. Pt has medical history as listed below that that contributes to his clinical presentation. At baseline patient is functionally independent with a quad cane. Currently patient is unsafe to return home secondary to his increased need for assist and fall risks with mobility. Diagnosis: Pt admitted for ETOH detox. Prognosis: good Performance Deficits /Impairments: Increased Pain, Decreased Functional Mobility, Decreased Strength, Decreased Safety Awareness, Decreased Endurance, and Decreased Balance Decision Making: Medium Complexity Subjective Patient pleasant and agreeable to therapy session this date. Per RN patient okay for therapy. Co-eval with OT. Observation: PIV intact Pain: 0-10 pain scale: 10/10 Location: generalized 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 Nausea and vomiting 12/22/22-12/26/22 admitted at [facility] Pain management Sleep apnea noncompliant with device Past Surgical History: Past Surgical History: Procedure Laterality Date BACK SURGERY x 2 CHOLECYSTECTOMY LAMINECTOMY LAP,CHOLECYSTECTOMY (HISTORICAL) N/A 01/05/2023 WISDOM TOOTH EXTRACTION Admission Diagnosis: Patient Active Problem List Diagnosis Date Noted Alcohol use disorder 04/22/2024 Other pancytopenia (CMS/HCC) (HCC) 01/20/2024 Alcohol withdrawal syndrome without complication (HCC) 01/15/2024 Moderate malnutrition (CMS/HCC) (HCC) 10/22/2023 Alcohol induced acute pancreatitis without necrosis or infection 10/20/2023 Recurrent falls 07/01/2023 Repeated falls 06/26/2023 Alcohol abuse 06/22/2023 Severe malnutrition (CMS/HCC) (HCC) 04/11/2023 Severe alcohol use disorder (HCC) 04/02/2023 Alcohol withdrawal syndrome with complication (HCC) 04/02/2023 Gallbladder sludge 01/05/2023 RUQ pain 01/05/2023 Acute on chronic cholecystitis 01/05/2023 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) 01/05/2023 Acute kidney injury (HCC) 12/22/2022 [place] (acute kidney injury) (HCC) 12/22/2022 Chronic pain syndrome 11/06/2022 Complication of surgical procedure 11/06/2022 Intercostal pain 11/06/2022 Low back pain 11/06/2022 Mild recurrent major depression (HCC) 11/06/2022 Myalgia 11/06/2022 Right hip pain 11/06/2022 Shoulder joint pain 11/06/2022 Intractable nausea and vomiting 06/05/2022 Hypovolemia 06/04/2022 Chronic alcoholic hepatitis 06/04/2022 Postural dizziness with presyncope 06/04/2022 Hyponatremia 06/03/2022 Osteoarthritis of spine with radiculopathy, lumbar region 03/12/2018 Essential hypertension 08/26/2017 Diabetes (HCC) 08/26/2017 Cirrhosis (HCC) 08/26/2017 Asthma 08/26/2017 Thyroid disease 08/26/2017 SHAYLA (obstructive sleep apnea) 08/26/2017 HLD (hyperlipidemia) 08/26/2017 Hepatitis 08/26/2017 Lumbar stenosis 06/10/2017 Medical Precautions: No active isolations Proper PPE donned/doffed in accordance with facility standards. Fall Risk: Maurice Fall Risk Score: 35 (Medium Risk) Precautions/Restrictions: Seizure Precautions Family/Caregiver Present: none Overall Cognitive Status: Exceptions - Safety judgement: decreased awareness of need for safety - Problem solving: assistance required to generate solutions, assistance required to implement solutions, assistance required to identify errors made, assistance required to correct errors made, and decreased awareness of errors - Insights: decreased awareness of deficits - Sequencing: requires cues for some Overall Orientation Status: Oriented x4 Vision: wears glasses at all times and and are being used during the eval Hearing: normal Social/Functional History Patient admitted from home. Lives With: Spouse Type of Home: single family home Home Layout: Two Level Home and Able to Live on Main Level Home Access: Stairs to Enter without Rails (# of stairs: 1+1) Bathroom Shower/Tub: Washes at sink/bed - unable to utilize main floor shower due to shower not working properly, has been sponge bathing for years per patient report Toilet: Standard Home Equipment: front wheeled walker and quad cane Homemaking Responsibilities: Needs Assist Receives Help From: Spouse Active Environmental Field Office Manager: No Prior Level of Function ADL Assistance: Needs Assist - assist for LB dressing and some assist for bathing Ambulation Assistance: Independent Device(s) used: quad cane Transfer Assistance: Independent Objective Lower Extremity Assessment AROM: WFL Strength: Pt demonstrates appropriate B LE and quad strength in order to safely participate in OOB mobility, generalized weakness noted Bed Mobility: Supine to sit: SBA Sit to supine: SBA Scooting: SBA Denies dizziness with positional changes. Momentum to complete with use of bed rails. Transfers Sit to stand: Contact Guard, to FWW from EOB and commode Stand to sit: Contact Guard Denies dizziness on initial stance. Cues for safety and FWW placement. Decreased eccentric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 in [place]. He grew up with both parents. He finished high school. No college. He has never been . He does not have any kids. He has a girlfriend of 30 years recently left him. Also his father recently. 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 Mental status exam: This is a middle-aged male who appears his stated age of 64. He was disheveled and unkempt. He made fair eye contact. No abnormal involuntary movements were noted. His gait and station was normal. Muscle tone and strength appeared to be within normal range. No atrophy deformities noted. No spasticity, cogwheel rigidity or facility was noted. Psychomotor activity was within normal range. Mood was depressed. Affect was constricted. Speech and thought process: Normal rate, rhythm and volume. Generally organized, current and spontaneous. Not tangential or circumstantial. No paucity of speech or perseveration was noted. Thought process was devoid of any loose associations, paranoid thought blocking. Thought content: No hallucinations or delusions. Denied any current suicidal or homicidal ideations, intent or plan. No obsessions or compulsions. No preoccupations. Sensorium: Alert and oriented x 3. His recent and remote memory was intact. He had an average intelligence. His fund of knowledge is appropriate for his level of education. His attention concentration was fair. His use of language was appropriate. Impulse control was fair. Reality testing was intact. Insight and judgment was fair. His vitals include a temperature of 97.8 F, respirations 17/min, heart rate 79/min, blood pressure is 105/66 mmHg Assessment: Major depressive disorder, recurrent, severe, without psychosis Unspecified anxiety disorder Plan: At this time I will continue his Remeron 15 mg nightly and we will start him on Zoloft 50 mg daily. The dose of Zoloft had been increased to titrate with his symptoms. The patient is not actively suicidal or homicidal. He does not need inpatient psychiatric care at this time. Associated Order(s): IP CONSULT TO ADDICTION MEDICINE Images from the original note were not included. Addiction Medicine Patient: Woody Ni Admit Date: 04/22/2024 Primary Care Physician: Jani Quezada History of Present Illness Diagnosis: Alcohol dependence/withdrawal The patient is a 64-year-old male presenting to [facility] for treatment of alcohol dependence/withdrawal. Patient well-known to chemical dependency services. Prior to coming the hospital consuming at least 24 beers daily, with the most recent use just prior to admission. His blood alcohol level at the time of admission was 0.309 Previous treatment-he has been seen both on the detoxification unit and by the consultation service on several occasions.. Most recent consultations were in June 2023 and January 2024. He has never been involved in any formal treatment beyond detoxification-typically has not followed up with counseling recommendations. At one point in time he was abstinent for 2 years but relapsed 7 years ago. There is a clear history loss of control, increased tolerance, continued use despite adverse consequences, inability to abstain successfully on his own. Withdrawal positive for anxiety, sweats, tremors and withdrawal seizures. He did allude to multiple losses recently. His father and dog both . His spouse also recently left him. He does report increased depressive symptomatology. Social History Socioeconomic History Marital status: Spouse name: Not on file Number of children: Not on file Years of education: Not on file Highest education level: Not on file Occupational History Not on file Tobacco Use Smoking status: Every Day Types: Cigars Smokeless tobacco: Former Vaping Use Vaping status: Every Day Substances: CBD, canabis Devices: Disposable Substance and Sexual Activity Alcohol use: Yes Alcohol/week: 105.0 standard drinks of alcohol Types: 105 Cans of beer per week Comment: 15-18 beers/day Drug use: Yes Types: Marijuana Comment: daily Sexual activity: Not on file Other Topics Concern Not on file Social History Narrative Not on file Social Determinants of Health Financial Resource Strain: High Risk (01/15/2024) Overall Financial Resource Strain (CARDIA) Difficulty of Paying Living Expenses: Hard Food Insecurity: Food Insecurity Present (01/15/2024) Hunger Vital Sign Worried About Running Out of Food in the Last Year: Sometimes true Ran Out of Food in the Last Year: Sometimes true Transportation Needs: No Transportation Needs (01/15/2024) PRAPARE - Transportation Lack of Transportation (Medical): No Lack of Transportation (Non-Medical): No Physical Activity: Unknown (01/15/2024) Exercise Vital Sign Days of Exercise per Week: 0 days Minutes of Exercise per Session: Not on file Recent Concern: Physical Activity - Inactive (01/15/2024) Exercise Vital Sign Days of Exercise per Week: 0 days Minutes of Exercise per Session: 0 min Stress: No Stress Concern Present (04/03/2023) [employer] - Occupational Stress Questionnaire Feeling of Stress : Not at all Social Connections: Socially Isolated (12/07/2023) Social Connection and Isolation Panel [NHANES] Frequency of Communication with Friends and Family: Never Frequency of Social Gatherings with Friends and Family: Never Attends [employer] Services: Never Active Member of Clubs or Organizations: No Attends Club or Organization Meetings: Not on file Marital Status: Living with partner Intimate Partner Violence: Not At Risk (04/22/2024) Humiliation, Afraid, Rape, and Kick questionnaire Fear of Current or Ex-Partner: No Emotionally Abused: No Physically Abused: No Sexually Abused: No Housing Stability: Low Risk (01/15/2024) Housing Stability Vital Sign Unable to Pay for Housing in the Last Year: No Number of Places Lived in the Last Year: 1 Unstable Housing in the Last Year: No Recent Concern: Housing Stability - High Risk (10/21/2023) Housing Stability Vital Sign Unable to Pay for Housing in the Last Year: Yes Number of Places Lived in the Last Year: 1 Unstable Housing in the Last Year: No 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 Nausea and vomiting 12/22/22-12/26/22 admitted at [facility] Pain management Sleep apnea noncompliant with device Past Surgical History: Procedure Laterality Date BACK SURGERY x 2 CHOLECYSTECTOMY LAMINECTOMY LAP,CHOLECYSTECTOMY (HISTORICAL) N/A 01/05/2023 WISDOM TOOTH EXTRACTION Family History Problem Relation Name Age of Onset Depression Mother Depression Maternal Grandmother Labs Recent Results (from the past 48 hour(s)) POCT glucose meter Collection Time: 04/23/24 4:13 PM Result Value Ref Range Glucose 133 (H) 70 - 100 mg/dL POCT glucose meter Collection Time: 04/23/24 7:21 PM Result Value Ref Range Glucose 142 (H) 70 - 100 mg/dL POCT glucose meter Collection Time: 04/24/24 7:33 AM Result Value Ref Range Glucose 119 (H) 70 - 100 mg/dL CBC auto differential Collection Time: 04/24/24 8:38 AM Result Value Ref Range Auto WBC 4.5 3.6 - 10.7 10*3/uL RBC 3.62 (L) 4.40 - 5.90 10*6/uL Hemoglobin 10.9 (L) 13.0 - 18.0 g/dL Hematocrit 33.1 (L) 40.0 - 52.0 % MCV 91.4 77.0 - 99.0 fL MCH 30.1 26.0 - 34.0 pg MCHC 32.9 30.5 - 36.0 % RDW 14.2 11.5 - 15.0 % Platelets 137 (L) 140 - 440 10*3/uL MPV 8.7 (L) 9.0 - 12.7 fL nRBC 0.0 0.0 - 2.0 /100 WBCs Neutrophils Relative 58.8 38.0 - 82.0 % Lymphocytes Relative 30.3 15.0 - 45.0 % Monocytes Relative 7.6 5.0 - 13.0 % Eosinophils Relative 2.2 0.0 - 6.0 % Basophils Relative 0.9 0.0 - 2.0 % Immature Grans % 0.2 0.0 - 2.0 % Neutrophils Absolute 2.6 1.8 - 7.5 10*3/uL Lymphocytes Absolute 1.4 1.0 - 4.3 10*3/uL Monocytes Absolute 0.3 0.0 - 0.9 10*3/uL Eosinophils Absolute 0.1 0.0 - 0.5 10*3/uL Basophils Absolute 0.0 0.0 - 0.2 10*3/uL Immature Grans Absolute 0.0 <0.1 10*3/uL Comprehensive metabolic panel Collection Time: 04/24/24 8:38 AM Result Value Ref Range SODIUM 132 (L) 135 - 145 mmol/L POTASSIUM 4.0 3.5 - 5.1 mmol/L CHLORIDE 100 98 - 107 mmol/L CARBON DIOXIDE 26 22 - 30 mmol/L ANION GAP 6 3 - 13 mmol/L UREA NITROGEN 7 (L) 9 - 20 mg/dL CREATININE 0.87 0.66 - 1.25 mg/dL GLUCOSE 147 (H) 70 - 100 mg/dL CALCIUM 8.8 8.4 - 10.4 mg/dL AST (SGOT) 23 15 - 46 U/L ALT 21 0 - 49 U/L ALKALINE PHOSPHATASE 53 38 - 126 U/L ALBUMIN 3.5 3.5 - 5.0 g/dL BILIRUBIN, TOTAL 0.6 0.2 - 1.3 mg/dL TOTAL PROTEIN 6.2 (L) 6.3 - 8.2 g/dL eGFR >90.0 >60.0 mL/min/1.73m*2 POCT glucose meter Collection Time: 04/24/24 11:27 AM Result Value Ref Range Glucose 140 (H) 70 - 100 mg/dL POCT glucose meter Collection Time: 04/24/24 5:25 PM Result Value Ref Range Glucose 98 70 - 100 mg/dL POCT glucose meter Collection Time: 04/24/24 7:43 PM Result Value Ref Range Glucose 176 (H) 70 - 100 mg/dL CBC auto differential Collection Time: 04/25/24 2:31 AM Result Value Ref Range Auto WBC 8.4 3.6 - 10.7 10*3/uL RBC 3.88 (L) 4.40 - 5.90 10*6/uL Hemoglobin 11.7 (L) 13.0 - 18.0 g/dL Hematocrit 35.6 (L) 40.0 - 52.0 % MCV 91.8 77.0 - 99.0 fL MCH 30.2 26.0 - 34.0 pg MCHC 32.9 30.5 - 36.0 % RDW 14.1 11.5 - 15.0 % Platelets 127 (L) 140 - 440 10*3/uL MPV 8.7 (L) 9.0 - 12.7 fL Basic metabolic panel Collection Time: 04/25/24 2:31 AM Result Value Ref Range SODIUM 131 (L) 135 - 145 mmol/L POTASSIUM 4.0 3.5 - 5.1 mmol/L CHLORIDE 100 98 - 107 mmol/L CARBON DIOXIDE 25 22 - 30 mmol/L UREA NITROGEN 10 9 - 20 mg/dL CREATININE 0.89 0.66 - 1.25 mg/dL GLUCOSE 114 (H) 70 - 100 mg/dL CALCIUM 9.2 8.4 - 10.4 mg/dL ANION GAP 6 3 - 13 mmol/L eGFR >90.0 >60.0 mL/min/1.73m*2 MANUAL DIFFERENTIAL (CELLAVISION) Collection Time: 04/25/24 2:31 AM Result Value Ref Range RBC Morphology Normal Neutrophils % 88 (H) 38 - 82 % Bands % 7 (H) <=0 % Lymphocytes % 2 (L) 15 - 45 % Monocytes % 1 (L) 5 - 13 % Eosinophils % 2 0 - 6 % Absolute Neutrophil Count 8.0 (H) 1.8 - 7.5 10*3/uL Bands Absolute 0.6 (H) <=0.0 10*3/uL Lymphocytes Absolute 0.2 (L) 1.0 - 4.3 10*3/uL Monocytes Absolute 0.1 0.0 - 0.9 10*3/uL Eosinophils Absolute 0.2 0.0 - 0.5 10*3/uL Neutrophils Manual 88 Lymphocytes Manual 2 Monocytes Manual 1 Eosinophils Manual 2 (H) 0 - 1 Basophils Manual Bands Manual 7 Metamyelocytes Manual Myelocytes Manual Promyelocytes Manual Blasts Manual Atypical Lymphocytes Manual Unclassified Cells, Manual POCT glucose meter Collection Time: 04/25/24 6:07 AM Result Value Ref Range Glucose 110 (H) 70 - 100 mg/dL Medications Home Meds: Prior to Admission medications Medication Sig Start Date End Date Taking? Authorizing Provider albuterol 108 (90 Base) MCG/ACT inhaler Inhale 2 puffs every 6 hours as needed for shortness of breath or wheezing. Yes Historical Provider, diphenhydrAMINE-zinc acetate (BENADryl) cream Apply topically 3 times daily as needed for itching. 01/26/24 01/25/25 Yes Jose Maria Abad MD hydrOXYzine HCl (Atarax) 25 MG tablet Take 25 mg by mouth every 6 hours as needed for itching. Yes Historical Provider, ipratropium-albuterol (Duo-Neb) 0.5-2.5 mg/3 mL nebulizer solution every 6 hours. Yes Historical Provider, magnesium chloride 64 MG EC tablet Take 1 tablet (64 mg) by mouth daily (with breakfast). 01/21/24 Yes Ethel Anna, niacin 100 MG tablet Every 24 hours. Yes Historical Provider, pantoprazole (ProtoNix) 40 MG EC tablet Take 1 tablet (40 mg) by mouth in the morning and 1 tablet (40 mg) in the evening. Take before meals. Do not crush, chew, or split.. 10/27/23 10/26/24 Yes Kacie Benz, tamsulosin (Flomax) 0.4 MG 24 hr capsule Take 0.4 mg by mouth daily. 01/27/22 Yes Historical Provider, thiamine (Vitamin B-1) 100 MG tablet Take 1 tablet (100 mg) by mouth daily. Do not start before April 16, 2023. 04/16/23 Yes Ced Koenig MD alendronate (Fosamax) 70 MG tablet Take 70 mg by mouth once a week. 05/19/17 Historical Provider, cyanocobalamin (Vitamin B-12) 1000 MCG/ML injection 1 mL intramuscularly once a month Historical Provider, diphenhydrAMINE (BENADryl) 50 MG capsule Take 1 capsule (50 mg) by mouth every 6 hours as needed for itching. 01/26/24 02/25/24 Jose Maria Abad MD famotidine (Pepcid) 20 MG tablet Take 1 tablet (20 mg) by mouth 2 times daily. 04/15/23 04/14/24 Ced Koenig MD fluticasone (Flonase) 50 MCG/ACT nasal spray Administer 1 spray into each nostril daily as needed. 04/27/17 Historical Provider, hydrOXYzine pamoate (Vistaril) 25 MG capsule Take 1 capsule (25 mg) by mouth every 8 hours as needed for anxiety for up to 10 days. 01/26/24 02/05/24 Jose Maria Abad MD ketoconazole (NIZOral) 2 % shampoo EVERY THREE DAYS 11/18/19 Historical Provider, levothyroxine (Synthroid, Levoxyl) 50 MCG tablet TAKE 1 TABLET BY MOUTH DAILY Patient taking differently: Take 75 mcg by mouth every morning (before breakfast). 06/06/22 01/18/24 Nicolas Qiu losartan (Cozaar) 100 MG tablet Take 1 tablet (100 mg) by mouth daily. Do not start before February 15, 2023. 02/15/23 02/15/24 Kacie Benz DO mirtazapine (Remeron) 15 MG tablet Take 1 tablet (15 mg) by mouth Nightly. 01/26/24 02/25/24 Jose Maria Abad MD nicotine (Nicoderm, Step 1) 21 MG/24HR patch Place 1 patch on the skin daily. 10/27/23 11/26/23 Kacie Benz DO nicotine polacrilex (Commit) 2 MG lozenge Dissolve 1 lozenge (2 mg) in the mouth every 2 hours as needed for smoking cessation. 01/20/24 02/19/24 Etheleliza Anna DO nitroglycerin (Nitrostat) 0.4 MG SL tablet 1 tab(s) sublingually every 5 minutes x 3 doses prn Historical Provider, tiZANidine (Zanaflex) 4 MG tablet Take 1 tablet (4 mg) by mouth every 6 hours as needed for muscle spasms for up to 10 days. 01/26/24 02/05/24 Jose Maria Abad MD Inpatient Scheduled Meds: enoxaparin, 40 mg, SubCUTAneous, Daily folic acid, 1 mg, Oral, Daily insulin lispro, 0-12 Units, SubCUTAneous, TID WC And insulin lispro, 0-12 Units, SubCUTAneous, Nightly levothyroxine, 75 mcg, Oral, qAM AC losartan, 100 mg, Oral, Daily mirtazapine, 15 mg, Oral, Nightly pantoprazole, 40 mg, Oral, BID AC PHENobarbital, 64.8 mg, Oral, Q4H tamsulosin, 0.4 mg, Oral, Daily thiamine, 100 mg, Oral, Daily Inpatient PRN Meds: PRN medications: acetaminophen OR acetaminophen, albuterol, dextrose, dextrose, glucagon (rDNA), glucose, hydrALAZINE, ondansetron ODT OR ondansetron, polyethylene glycol (PEG) 3350 Exam Vitals: 04/24/24 0735 04/24/24 1943 04/25/24 0118 04/25/24 0744 BP: 122/84 120/63 129/78 105/66 BP Location: Right arm Right arm Right arm Right arm Patient Position: Lying Sitting Lying Lying Pulse: 86 95 101 99 Resp: 20 16 18 17 Temp: 36.9 C (98.5 F) 37 C (98.6 F) 37.2 C (98.9 F) 36.6 C (97.8 F) TempSrc: Temporal Temporal Temporal Temporal SpO2: 92% 97% 94% 96% Weight: Height: Physical Exam Patient bed ridden, flushed, diaphoretic. Oriented x 4. Cooperative. Moderate tremors persist. No auditory, tactile or visual disturbances. Assessment & Plan Diagnosis: Dependence/withdrawal Will continue phenobarbital as ordered for alcohol withdrawal syndrome. He is willing to pursue the outpatient program. I have requested the counselor from [facility] meet with the patient to facilitate his entry into the program. Psychiatric evaluation also ordered due to multiple recent losses in his life. Flavio Sherman MD Addiction Medicine 04/25/2024 at 11:44 AM --55-- minutes were spent reviewing the patient's records, evaluating the patient, entering orders, coordinating care with the treatment team, and creating a progress note. Narrative portions of the note are written utilizing [employer] software. While every effort is made to dictate clearly and proofread, errors in the dictation may still occur. If there are any questions regarding the dictation please do not hesitate to contact the author. documented in this encounter [facility] 04-25-2024 Consult note Associated Order (s): IP CONSULT TO ADDICTION MEDICINE Images from the original note were not included. Addiction Medicine Patient: Woody Ni Admit Date: 04/22/2024 Primary Care Physician: Jani Quezada History of Present Illness Diagnosis: Alcohol dependence/withdrawal The patient is a 64-year-old male presenting to [facility] for treatment of alcohol dependence/withdrawal. Patient well-known to chemical dependency services. Prior to coming the hospital consuming at least 24 beers daily, with the most recent use just prior to admission. His blood alcohol level at the time of admission was 0.309 Previous treatment-he has been seen both on the detoxification unit and by the consultation service on several occasions.. Most recent consultations were in June 2023 and January 2024. He has never been involved in any formal treatment beyond detoxification-typically has not followed up with counseling recommendations. At one point in time he was abstinent for 2 years but relapsed 7 years ago. There is a clear history loss of control, increased tolerance, continued use despite adverse consequences, inability to abstain successfully on his own. Withdrawal positive for anxiety, sweats, tremors and withdrawal seizures. He did allude to multiple losses recently. His father and dog both . His spouse also recently left him. He does report increased depressive symptomatology. Social History Socioeconomic History Marital status: Spouse name: Not on file Number of children: Not on file Years of education: Not on file Highest education level: Not on file Occupational History Not on file Tobacco Use Smoking status: Every Day Types: Cigars Smokeless tobacco: Former Vaping Use Vaping status: Every Day Substances: CBD, canabis Devices: Disposable Substance and Sexual Activity Alcohol use: Yes Alcohol/week: 105.0 standard drinks of alcohol Types: 105 Cans of beer per week Comment: 15-18 beers/day Drug use: Yes Types: Marijuana Comment: daily Sexual activity: Not on file Other Topics Concern Not on file Social History Narrative Not on file Social Determinants of Health Financial Resource Strain: High Risk (01/15/2024) Overall Financial Resource Strain (CARDIA) Difficulty of Paying Living Expenses: Hard Food Insecurity: Food Insecurity Present (01/15/2024) Hunger Vital Sign Worried About Running Out of Food in the Last Year: Sometimes true Ran Out of Food in the Last Year: Sometimes true Transportation Needs: No Transportation Needs (01/15/2024) PRAPARE - Transportation Lack of Transportation (Medical): No Lack of Transportation (Non-Medical): No Physical Activity: Unknown (01/15/2024) Exercise Vital Sign Days of Exercise per Week: 0 days Minutes of Exercise per Session: Not on file Recent Concern: Physical Activity - Inactive (01/15/2024) Exercise Vital Sign Days of Exercise per Week: 0 days Minutes of Exercise per Session: 0 min Stress: No Stress Concern Present (04/03/2023) [employer] - Occupational Stress Questionnaire Feeling of Stress : Not at all Social Connections: Socially Isolated (12/07/2023) Social Connection and Isolation Panel [NHANES] Frequency of Communication with Friends and Family: Never Frequency of Social Gatherings with Friends and Family: Never Attends [employer] Services: Never Active Member of Clubs or Organizations: No Attends Club or Organization Meetings: Not on file Marital Status: Living with partner Intimate Partner Violence: Not At Risk (04/22/2024) Humiliation, Afraid, Rape, and Kick questionnaire Fear of Current or Ex-Partner: No Emotionally Abused: No Physically Abused: No Sexually Abused: No Housing Stability: Low Risk (01/15/2024) Housing Stability Vital Sign Unable to Pay for Housing in the Last Year: No Number of Places Lived in the Last Year: 1 Unstable Housing in the Last Year: No Recent Concern: Housing Stability - High Risk (10/21/2023) Housing Stability Vital Sign Unable to Pay for Housing in the Last Year: Yes Number of Places Lived in the Last Year: 1 Unstable Housing in the Last Year: No 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 Nausea and vomiting 12/22/22-12/26/22 admitted at [facility] Pain management Sleep apnea noncompliant with device Past Surgical History: Procedure Laterality Date BACK SURGERY x 2 CHOLECYSTECTOMY LAMINECTOMY LAP,CHOLECYSTECTOMY (HISTORICAL) N/A 01/05/2023 WISDOM TOOTH EXTRACTION Family History Problem Relation Name Age of Onset Depression Mother Depression Maternal Grandmother Labs Recent Results (from the past 48 hour(s)) POCT glucose meter Collection Time: 04/23/24 4:13 PM Result Value Ref Range Glucose 133 (H) 70 - 100 mg/dL POCT glucose meter Collection Time: 04/23/24 7:21 PM Result Value Ref Range Glucose 142 (H) 70 - 100 mg/dL POCT glucose meter Collection Time: 04/24/24 7:33 AM Result Value Ref Range Glucose 119 (H) 70 - 100 mg/dL CBC auto differential Collection Time: 04/24/24 8:38 AM Result Value Ref Range Auto WBC 4.5 3.6 - 10.7 10*3/uL RBC 3.62 (L) 4.40 - 5.90 10*6/uL Hemoglobin 10.9 (L) 13.0 - 18.0 g/dL Hematocrit 33.1 (L) 40.0 - 52.0 % MCV 91.4 77.0 - 99.0 fL MCH 30.1 26.0 - 34.0 pg MCHC 32.9 30.5 - 36.0 % RDW 14.2 11.5 - 15.0 % Platelets 137 (L) 140 - 440 10*3/uL MPV 8.7 (L) 9.0 - 12.7 fL nRBC 0.0 0.0 - 2.0 /100 WBCs Neutrophils Relative 58.8 38.0 - 82.0 % Lymphocytes Relative 30.3 15.0 - 45.0 % Monocytes Relative 7.6 5.0 - 13.0 % Eosinophils Relative 2.2 0.0 - 6.0 % Basophils Relative 0.9 0.0 - 2.0 % Immature Grans % 0.2 0.0 - 2.0 % Neutrophils Absolute 2.6 1.8 - 7.5 10*3/uL Lymphocytes Absolute 1.4 1.0 - 4.3 10*3/uL Monocytes Absolute 0.3 0.0 - 0.9 10*3/uL Eosinophils Absolute 0.1 0.0 - 0.5 10*3/uL Basophils Absolute 0.0 0.0 - 0.2 10*3/uL Immature Grans Absolute 0.0 <0.1 10*3/uL Comprehensive metabolic panel Collection Time: 04/24/24 8:38 AM Result Value Ref Range SODIUM 132 (L) 135 - 145 mmol/L POTASSIUM 4.0 3.5 - 5.1 mmol/L CHLORIDE 100 98 - 107 mmol/L CARBON DIOXIDE 26 22 - 30 mmol/L ANION GAP 6 3 - 13 mmol/L UREA NITROGEN 7 (L) 9 - 20 mg/dL CREATININE 0.87 0.66 - 1.25 mg/dL GLUCOSE 147 (H) 70 - 100 mg/dL CALCIUM 8.8 8.4 - 10.4 mg/dL AST (SGOT) 23 15 - 46 U/L ALT 21 0 - 49 U/L ALKALINE PHOSPHATASE 53 38 - 126 U/L ALBUMIN 3.5 3.5 - 5.0 g/dL BILIRUBIN, TOTAL 0.6 0.2 - 1.3 mg/dL TOTAL PROTEIN 6.2 (L) 6.3 - 8.2 g/dL eGFR >90.0 >60.0 mL/min/1.73m*2 POCT glucose meter Collection Time: 04/24/24 11:27 AM Result Value Ref Range Glucose 140 (H) 70 - 100 mg/dL POCT glucose meter Collection Time: 04/24/24 5:25 PM Result Value Ref Range Glucose 98 70 - 100 mg/dL POCT glucose meter Collection Time: 04/24/24 7:43 PM Result Value Ref Range Glucose 176 (H) 70 - 100 mg/dL CBC auto differential Collection Time: 04/25/24 2:31 AM Result Value Ref Range Auto WBC 8.4 3.6 - 10.7 10*3/uL RBC 3.88 (L) 4.40 - 5.90 10*6/uL Hemoglobin 11.7 (L) 13.0 - 18.0 g/dL Hematocrit 35.6 (L) 40.0 - 52.0 % MCV 91.8 77.0 - 99.0 fL MCH 30.2 26.0 - 34.0 pg MCHC 32.9 30.5 - 36.0 % RDW 14.1 11.5 - 15.0 % Platelets 127 (L) 140 - 440 10*3/uL MPV 8.7 (L) 9.0 - 12.7 fL Basic metabolic panel Collection Time: 04/25/24 2:31 AM Result Value Ref Range SODIUM 131 (L) 135 - 145 mmol/L POTASSIUM 4.0 3.5 - 5.1 mmol/L CHLORIDE 100 98 - 107 mmol/L CARBON DIOXIDE 25 22 - 30 mmol/L UREA NITROGEN 10 9 - 20 mg/dL CREATININE 0.89 0.66 - 1.25 mg/dL GLUCOSE 114 (H) 70 - 100 mg/dL CALCIUM 9.2 8.4 - 10.4 mg/dL ANION GAP 6 3 - 13 mmol/L eGFR >90.0 >60.0 mL/min/1.73m*2 MANUAL DIFFERENTIAL (CELLAVISION) Collection Time: 04/25/24 2:31 AM Result Value Ref Range RBC Morphology Normal Neutrophils % 88 (H) 38 - 82 % Bands % 7 (H) <=0 % Lymphocytes % 2 (L) 15 - 45 % Monocytes % 1 (L) 5 - 13 % Eosinophils % 2 0 - 6 % Absolute Neutrophil Count 8.0 (H) 1.8 - 7.5 10*3/uL Bands Absolute 0.6 (H) <=0.0 10*3/uL Lymphocytes Absolute 0.2 (L) 1.0 - 4.3 10*3/uL Monocytes Absolute 0.1 0.0 - 0.9 10*3/uL Eosinophils Absolute 0.2 0.0 - 0.5 10*3/uL Neutrophils Manual 88 Lymphocytes Manual 2 Monocytes Manual 1 Eosinophils Manual 2 (H) 0 - 1 Basophils Manual Bands Manual 7 Metamyelocytes Manual Myelocytes Manual Promyelocytes Manual Blasts Manual Atypical Lymphocytes Manual Unclassified Cells, Manual POCT glucose meter Collection Time: 04/25/24 6:07 AM Result Value Ref Range Glucose 110 (H) 70 - 100 mg/dL Medications Home Meds: Prior to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 [phone] [facility] [place] [phone] [facility], [place], [place] [phone] [facility], [place], [place] [phone] [facility], [place], [place] [phone] [facility] [place], [place], [place] [phone] [facility], [facility], [place], [place]-PHP, [facility], [facility] [phone] [employer] [facility] - Peer Youth Development Professional service: [phone] [facility]: [phone] ext. [phone] Medicaid Health Coverage: [employer] JFS: [phone] Ruperto Cortez RN 04/22/242209 Detox rules signed by patient. Witnessed by ACC RN. Ruperto Cortez RN 04/22/242203 EMERGENCY DEPARTMENT ENCOUNTER Pt Name: Woody Ni Birthdate 1960 Date of evaluation: 04/22/2024 ED Provider: Kassandra Adkins MD CHIEF COMPLAINT Chief Complaint Patient presents with Alcohol Intoxication Pt presents with squad for etoh intoxication. Per pt, he has consumed 24 beers this afternoon, which he reports is his normal for what he reports "for the last 50 years". Pt denies any cp, sob, n/v/d or headache. Pt also denies n/v/d. Pt has no other complaints or concerns at this time. Last drink at 1842. HISTORY OF PRESENT ILLNESS (Location/Symptom, Timing/Onset, Context/Setting, Quality, Duration, Modifying Factors, Severity) Note limiting factors. HPI Woody Ni is a 64 y.o. male who presents to the emergency department for alcohol intoxication. Patient states that he drinks about 24 beers a day and has been doing this since the age of 13. Has gone to alcohol drawl in the past and has had alcohol withdrawal seizures as well. His last drink was around 6 PM this evening. States that he was coming in in order to get help with detoxification. Nursing Notes were reviewed. 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 ALENDRONATE (FOSAMAX) 70 MG TABLET Take 70 mg by mouth once a week. CYANOCOBALAMIN (VITAMIN B-12) 1000 MCG/ML INJECTION 1 mL intramuscularly once a month DIPHENHYDRAMINE (BENADRYL) 50 MG CAPSULE Take 1 capsule (50 mg) by mouth every 6 hours as needed for itching. DIPHENHYDRAMINE-ZINC ACETATE (BENADRYL) CREAM Apply topically 3 times daily as needed for itching. FAMOTIDINE (PEPCID) 20 MG TABLET Take 1 tablet (20 mg) by mouth 2 times daily. FLUTICASONE (FLONASE) 50 MCG/ACT NASAL SPRAY Administer 1 spray into each nostril daily as needed. HYDROXYZINE HCL (ATARAX) 25 MG TABLET Take 25 mg by mouth every 6 hours as needed for itching. HYDROXYZINE PAMOATE (VISTARIL) 25 MG CAPSULE Take 1 capsule (25 mg) by mouth every 8 hours as needed for anxiety for up to 10 days. IPRATROPIUM-ALBUTEROL (DUO-NEB) 0.5-2.5 MG/3 ML NEBULIZER SOLUTION every 6 hours. KETOCONAZOLE (NIZORAL) 2 % SHAMPOO EVERY THREE DAYS LEVOTHYROXINE (SYNTHROID, LEVOXYL) 50 MCG TABLET TAKE 1 TABLET BY MOUTH DAILY LOSARTAN (COZAAR) 100 MG TABLET Take 1 tablet (100 mg) by mouth daily. Do not start before February 15, 2023. MAGNESIUM CHLORIDE 64 MG EC TABLET Take 1 tablet (64 mg) by mouth daily (with breakfast). MIRTAZAPINE (REMERON) 15 MG TABLET Take 1 tablet (15 mg) by mouth Nightly. NIACIN 100 MG TABLET Every 24 hours. NICOTINE (NICODERM, STEP 1) 21 MG/24HR PATCH Place 1 patch on the skin daily. NICOTINE POLACRILEX (COMMIT) 2 MG LOZENGE Dissolve 1 lozenge (2 mg) in the mouth every 2 hours as needed for smoking cessation. NITROGLYCERIN (NITROSTAT) 0.4 MG SL TABLET 1 tab(s) sublingually every 5 minutes x 3 doses prn PANTOPRAZOLE (PROTONIX) 40 MG EC TABLET Take 1 tablet (40 mg) by mouth in the morning and 1 tablet (40 mg) in the evening. Take before meals. Do not crush, chew, or split.. TAMSULOSIN (FLOMAX) 0.4 MG 24 HR CAPSULE Take 0.4 mg by mouth daily. THIAMINE (VITAMIN B-1) 100 MG TABLET Take 1 tablet (100 mg) by mouth daily. Do not start before April 16, 2023. TIZANIDINE (ZANAFLEX) 4 MG TABLET Take 1 tablet (4 mg) by mouth every 6 hours as needed for muscle spasms for up to 10 days. ALLERGIES Allopurinol, Codeine, and Penicillin g FAMILY HISTORY Family History Problem Relation Name Age of Onset Depression Mother Depression Maternal Grandmother SOCIAL HISTORY Social History Socioeconomic History Marital status: Tobacco Use Smoking status: Every Day Types: Cigars Smokeless tobacco: Former Vaping Use Vaping status: Every Day Substances: CBD, canabis Devices: Disposable Substance and Sexual Activity Alcohol use: Yes Alcohol/week: 105.0 standard drinks of alcohol Types: 105 Cans of beer per week Comment: 15-18 beers/day Drug use: Yes Types: Marijuana Comment: daily Social Determinants of Health Financial Resource Strain: High Risk (01/15/2024) Overall Financial Resource Strain (CARDIA) Difficulty of Paying Living Expenses: Hard Food Insecurity: Food Insecurity Present (01/15/2024) Hunger Vital Sign Worried About Running Out of Food in the Last Year: Sometimes true Ran Out of Food in the Last Year: Sometimes true Transportation Needs: No Transportation Needs (01/15/2024) PRAPARE - Transportation Lack of Transportation (Medical): No Lack of Transportation (Non-Medical): No Physical Activity: Unknown (01/15/2024) Exercise Vital Sign Days of Exercise per Week: 0 days Recent Concern: Physical Activity - Inactive (01/15/2024) Exercise Vital Sign Days of Exercise per Week: 0 days Minutes of Exercise per Session: 0 min Stress: No Stress Concern Present (04/03/2023) [employer] [place] [employer] - Occupational Stress Questionnaire Feeling of Stress : Not at all Social Connections: Socially Isolated (12/07/2023) Social Connection and Isolation Panel [NHANES] Frequency of Communication with Friends and Family: Never Frequency of Social Gatherings with Friends and Family: Never Attends Amish Services: Never Active Member of Clubs or Organizations: No Marital Status: Living with partner Intimate Partner Violence: Not At Risk (01/15/2024) Humiliation, Afraid, Rape, and Kick questionnaire Fear of Current or Ex-Partner: No Emotionally Abused: No Physically Abused: No Sexually Abused: No Housing Stability: Low Risk (01/15/2024) Housing Stability Vital Sign Unable to Pay for Housing in the Last Year: No Number of Places Lived in the Last Year: 1 Unstable Housing in the Last Year: No Recent Concern: Housing Stability - High Risk (10/21/2023) Housing Stability Vital Sign Unable to Pay for Housing in the Last Year: Yes Number of Places Lived in the Last Year: 1 Unstable Housing in the Last Year: No SCREENINGS [place] Coma Scale Best Eye Response: Spontaneous Best Verbal Response: Oriented Best Motor Response: Follows commands Cheryl Coma Scale Score: 15 PHYSICAL EXAM ED Triage Vitals [04/22/242042] Temp Heart Rate Resp BP 37 C (98.6 F) 100 16 (!) 165/108 SpO2 Temp Source Heart Rate Source Patient Position 98 % Oral -- -- BP Location FiO2 (%) -- -- Physical Exam Intoxicated Male in no acute distress. Vital signs reviewed and unremarkable. Head is normocephalic and atraumatic. Lungs are clear to auscultation bilaterally. No increased work of breathing. Abdomen soft nontender to palpation. DIAGNOSTIC RESULTS RADIOLOGY (Per Emergency Physician): Interpretation per the Radiologist below, if available at the time of this note: No orders to display LABS: Labs Reviewed CBC WITH AUTO DIFFERENTIAL - Abnormal Result Value Auto WBC 11.2 (*) RBC 4.24 (*) Hemoglobin 12.9 (*) Hematocrit 36.5 (*) MCV 86.1 MCH 30.4 MCHC 35.3 RDW 13.7 Platelets 269 MPV 8.2 (*) COMPREHENSIVE METABOLIC PANEL - Abnormal SODIUM 127 (*) POTASSIUM 4.2 CHLORIDE 89 (*) CARBON DIOXIDE 20 (*) ANION GAP 18 (*) UREA NITROGEN 5 (*) CREATININE 0.78 GLUCOSE 92 CALCIUM 9.4 AST (SGOT) 53 (*) ALT 31 ALKALINE PHOSPHATASE 73 ALBUMIN 4.6 BILIRUBIN, TOTAL 0.5 TOTAL PROTEIN 7.5 eGFR >90.0 ETHANOL - Abnormal ETHANOL IN SER/PLAS 0.309 (*) Narrative: NOTE: This result is for medical treatment only. Analysis performed using non-forensic procedures. ACETAMINOPHEN LEVEL - Abnormal ACETAMINOPHEN <10.0 (*) COMPLETE URINALYSIS - Abnormal Color, Urine Colorless Clarity, Urine Clear pH, Urine 5.5 Leukocytes, Urine Negative Nitrite, Urine Negative Protein, Urine Negative Glucose, Urine Normal Bilirubin, Urine Negative Ketones, Urine Negative Urobilinogen, Urine Normal Blood, Urine Negative SPECIFIC GRAVITY OF URINE (NUMERIC) 1.003 (*) SARS-COV-2 ANTIGEN DRUGS OF ABUSE AMPHETAMINE SCREEN Negative BARBITURATES SCREEN Positive BENZODIAZEPINE SCREEN Negative COCAINE METAB. SCREEN Negative METHADONE SCREEN Negative OPIATES SCREEN Negative OXYCODONE SCREEN Positive PHENCYCLIDINE SCREEN Negative Narrative: The expected value for all of the drugs listed above is Negative. The following drugs or drug groups have been screened for by Immunoassay at the following thresholds: Amphetamine class (1000 ng/mL) Barbiturates (200 ng/mL) Benzodiazepines (200 ng/mL) Cocaine (300 ng/mL) Methadone (300 ng/mL) Opiates (300 ng/mL) Oxycodone (100 ng/mL) PCP (25 ng/mL) NOTE: These results are for medical treatment only. Analysis performed using non-forensic procedures. POSITIVE results are NOT confirmed by a more specific alternative method unless requested. If confirmation is needed, request confirmation under separate order. COMPLETE URINALYSIS WITH REFLEX TO CULTURE Narrative: The following orders were created for panel order Complete Urinalysis with reflex to Culture. Procedure Abnormality Status --------- ------ Complete Urinalysis[[id number]] Abnormal Final result Please view results for these tests on the individual orders. MANUAL DIFFERENTIAL (CELLAVISION) All other labs were within normal range or not returned as of this dictation. EMERGENCY DEPARTMENT COURSE and DIFFERENTIAL DIAGNOSIS/MDM: Vitals: Vitals: 04/22/24204204/22/242102 BP: (!) 165/108 (!) 165/108 Pulse: 100 100 Resp: 16 Temp: 37 C (98.6 F) TempSrc: Oral SpO2: 98% Weight: 72.6 kg (160 lb) Height: 1.778 m (5' 10") Medications folic acid (Folvite) tablet 1 mg (1 mg Oral Given 04/22/242140) thiamine (Vitamin B1) tablet 100 mg (100 mg Oral Given 04/22/242140) LORazepam (Ativan) injection 2 mg (2 mg IntraVENous Given 04/22/242129) PHENobarbital (Luminal) injection 130 mg (130 mg IntraVENous Given 04/22/242132) Medical Decision Making Problems Addressed: Alcohol use disorder: complicated acute illness or injury Amount and/or Complexity of Data Reviewed Labs: ordered. ECG/medicine tests: ordered. Risk OTC drugs. Prescription drug management. Decision regarding hospitalization. 64-year-old male presenting to the emergency department today for alcohol use disorder at home for detoxification. Afebrile hemodynamically stable on arrival. States that he was helping to get help with detox as he drinks 24 beers a day. Has been going through a lot recently which is caused him to relapse including his leaving him as well as his dad dying and his dog dying. He is not suicidal or homicidal at this time. Medical clearance labs were done and he does have elevated ethanol level which is to be expected in the setting of alcohol use disorder. The addiction care medicine nurse did come to evaluate the patient and recommended medical admission for help with detox. Patient is agreeable to admission. Admitted in stable condition. Diagnostic tests considered but not performed: External records reviewed: Diagnostics interpreted by me: Discussions with other clinicians: ADM nurse Chronic conditions impacting care: Social determinants of health affecting care: Alcoholism ED Medications managed: Medications folic acid (Folvite) tablet 1 mg (1 mg Oral Given 04/22/242140) thiamine (Vitamin B1) tablet 100 mg (100 mg Oral Given 04/22/242140) LORazepam (Ativan) injection 2 mg (2 mg IntraVENous Given 04/22/242129) PHENobarbital (Luminal) injection 130 mg (130 mg IntraVENous Given 04/22/242132) Prescription drugs considered: I Kassandra Adkins MD am the primary teacher of record. FINAL IMPRESSION 1. Alcohol use disorder DISPOSITION Admit 04/22/2024 10:07:27 PM PATIENT REFERRED TO: No follow-up provider specified. DISCHARGE MEDICATIONS: New Prescriptions No medications on file (Comment: Please note this report has been produced using speech recognition software and may contain errors related to that system including errors in grammar, punctuation, and spelling, as well as words and phrases that may be inappropriate. If there are any questions or concerns please feel free to contact the dictating provider for clarification.) Kassandra Adkins MD (electronically signed) Emergency Medicine Provider Kassandra Adkins MD 04/22/242209 documented in this encounter [facility] 04-22-2024 Emergency department Note Below are additional resources that you may find beneficial in your treatment: 12-Step: Heroin Anonymous : Nestor Fernandez: [phone], Dong Sanchez: [phone] Narcotics Anonymous: 888-GET_HOPE ([phone]) Izzy Moneye.org Alcohol Anonymous: [place].org Cocaine Anonymous: https://www.[place].org/meetings/akr onmeetings, NarAnon: 568.696.1533: 12-step program for families & friends of people with addiction. CRISIS: Homeless Hotline: 215.809.7983 Domestic Violence help line anytime: 179.707.2033 Crisis Hotline: 11/05- 431.305.4627 ADM Addiction Helpline: 993.220.4548 (available 8:30 AM to 4:00 PM ) 2-1-1 2-1-1 helps people across [facility] find local resources when they don't know where to turn for help. We are available 24 hours a day, 7 days a week. For help, simply dial 1-1 to speak to one of our trained professionals. METHADONE TREATMENT: [facility], [place] [phone] [facility] [place], [place] [phone] [facility], [place] [phone] [facility], [place] [phone] [facility]- [phone] ext. [phone] [facility] ([place])- [phone] DETOX TREATMENT: [facility]: anytime @ [phone] for alcohol & drug addiction help. [facility] [place], [place] [phone] [facility] coordination: [phone] (Medicare not accepted) [facility] [place]: [phone] (Adrian Medicaid not accepted) [facility] [place]: [phone] (Adrian Medicaid not accepted) [place], [place]: [phone] (Will Coordinate Transportation) [facility] [place]: [phone] [place]: [phone], [facility] [place]: [phone] [place], [place] [phone] [facility] [place] [facility] [place]: [phone] (Will Coordinate Transportation) [facility], [place], [place] [phone] ext. [phone] [place], [place] (pt. must be medically cleared prior to admission in ED) [place], [place] [phone] [place], [place]: [phone] (Adrian Medicaid not accepted) Jerad LOGAN [facility] [place] [phone] (Will Coordinate Transportation) [phone] OUTPATIENT TREATMENT: [facility] @ [place], [place] [phone] [facility]: Inpatient or Outpatient- [phone] 1st Step MAT Program @ [facility] ED: [phone] 1st Step MAT Program @ [facility] ED: [phone] 1st Step MAT Program @ [facility] ED: [phone], INTENSIVE OUTPATIENT PROGRAMS @ [facility] [place], [place] [phone] [place], [place] [phone] [place], [place] [phone] [place], [place] [phone] [facility]: [phone] [facility], [place], [place] [phone] [facility], [place]: [phone], [place]: [phone] [facility] [place]: [phone] [facility], [place]: [phone], [place]: [phone] [facility], [place]: [phone]; [place]: [phone] [facility] (Emphasis on minorities): [email or web address], [place], [place] [phone] [facility]: [facility] & [place], [place]: [phone] [place], [place] [phone] [facility] [place], [place] [phone] [facility] [phone] [facility] SERVICES: [employer] (180): [place] [phone] Day [place] & [place]: [phone] RESIDENTIAL TREATMENT FACILITIES: [facility] [place], [place] [phone] (admission coordinated by -Adamaris Mcgovern ext [phone]) [facility] [place]: [phone]; Men's services inpt. & women services - Outpt. [place], [place] [phone] [place], [place] [phone] [facility], [place], [place] [phone] [facility], [place], [place] [phone] [facility], [place], [place] [phone] [facility], [place], [place] [phone] [facility] [place], [place], [place] [phone] [facility], [place], [place]-[facility], [facility], [facility] [phone] [facility] Professional service: [phone] [facility]: [phone] ext. [phone] Medicaid Health Coverage: [employer] JFS: [phone] Ruperto Cortez RN 04/22/242209 [facility] [employer] 04-22-2024 History and physical note Attending History and Physical Admit Date: 04/22/2024 PCP: Jani Quezada CHIEF COMPLAINT: depression/help with alcohol detox Reason for Admission: depression/help with alcohol detox History Obtained From: patient/chart HISTORY OF PRESENT ILLNESS: Woody is a 64 y.o. male with past medical history below who presents with chief complaint listed above. He has been depressed over his father dying in February, his dog dying and his spouse leaving him in March. He drinks a case of beer a day. He is intoxicated. He would like help with detox. He has been drinking for many years. He has had withdrawal seizures in the past. He denies cp, sob, cough, n/v, f/c, dizziness. He is weak. Will admit for further evaluation and management. 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 Nausea and vomiting 12/22/22-12/26/22 admitted at [facility] Pain management Sleep apnea noncompliant with device Past Surgical History: Past Surgical History: Procedure Laterality Date BACK SURGERY x 2 CHOLECYSTECTOMY LAMINECTOMY LAP,CHOLECYSTECTOMY (HISTORICAL) N/A 01/05/2023 WISDOM TOOTH EXTRACTION Social History: Social History Socioeconomic History Marital status: Spouse name: Not on file Number of children: Not on file Years of education: Not on file Highest education level: Not on file Occupational History Not on file Tobacco Use Smoking status: Every Day Types: Cigars Smokeless tobacco: Former Vaping Use Vaping status: Every Day Substances: CBD, canabis Devices: Disposable Substance and Sexual Activity Alcohol use: Yes Alcohol/week: 105.0 standard drinks of alcohol Types: 105 Cans of beer per week Comment: 15-18 beers/day Drug use: Yes Types: Marijuana Comment: daily Sexual activity: Not on file Other Topics Concern Not on file Social History Narrative Not on file Social Determinants of Health Financial Resource Strain: High Risk (01/15/2024) Overall Financial Resource Strain (CARDIA) Difficulty of Paying Living Expenses: Hard Food Insecurity: Food Insecurity Present (01/15/2024) Hunger Vital Sign Worried About Running Out of Food in the Last Year: Sometimes true Ran Out of Food in the Last Year: Sometimes true Transportation Needs: No Transportation Needs (01/15/2024) PRAPARE - Transportation Lack of Transportation (Medical): No Lack of Transportation (Non-Medical): No Physical Activity: Unknown (01/15/2024) Exercise Vital Sign Days of Exercise per Week: 0 days Minutes of Exercise per Session: Not on file Recent Concern: Physical Activity - Inactive (01/15/2024) Exercise Vital Sign Days of Exercise per Week: 0 days Minutes of Exercise per Session: 0 min Stress: No Stress Concern Present (04/03/2023) [employer] [place] [employer] - Occupational Stress Questionnaire Feeling of Stress : Not at all Social Connections: Socially Isolated (12/07/2023) Social Connection and Isolation Panel [NHANES] Frequency of Communication with Friends and Family: Never Frequency of Social Gatherings with Friends and Family: Never Attends Amish Services: Never Active Member of Clubs or Organizations: No Attends Club or Organization Meetings: Not on file Marital Status: Living with partner Intimate Partner Violence: Not At Risk (01/15/2024) Humiliation, Afraid, Rape, and Kick questionnaire Fear of Current or Ex-Partner: No Emotionally Abused: No Physically Abused: No Sexually Abused: No Housing Stability: Low Risk (01/15/2024) Housing Stability Vital Sign Unable to Pay for Housing in the Last Year: No Number of Places Lived in the Last Year: 1 Unstable Housing in the Last Year: No Recent Concern: Housing Stability - High Risk (10/21/2023) Housing Stability Vital Sign Unable to Pay for Housing in the Last Year: Yes Number of Places Lived in the Last Year: 1 Unstable Housing in the Last Year: No Family History: Family History Problem Relation Name Age of Onset Depression Mother Depression Maternal Grandmother Medications Prior to Admission: No current facility-administered medications on file prior to encounter. Current Outpatient Medications on File Prior to Encounter Medication Sig Dispense Refill albuterol 108 (90 Base) MCG/ACT inhaler Inhale 2 puffs every 6 hours as needed for shortness of breath or wheezing. alendronate (Fosamax) 70 MG tablet Take 70 mg by mouth once a week. cyanocobalamin (Vitamin B-12) 1000 MCG/ML injection 1 mL intramuscularly once a month diphenhydrAMINE (BENADryl) 50 MG capsule Take 1 capsule (50 mg) by mouth every 6 hours as needed for itching. 30 tablet 0 diphenhydrAMINE-zinc acetate (BENADryl) cream Apply topically 3 times daily as needed for itching. 28 g 1 famotidine (Pepcid) 20 MG tablet Take 1 tablet (20 mg) by mouth 2 times daily. 60 tablet 0 fluticasone (Flonase) 50 MCG/ACT nasal spray Administer 1 spray into each nostril daily as needed. [] folic acid (Folvite) 1 MG tablet Take 1 tablet (1 mg) by mouth daily. Do not start before April 16, 2023. 30 tablet 0 hydrOXYzine HCl (Atarax) 25 MG tablet Take 25 mg by mouth every 6 hours as needed for itching. hydrOXYzine pamoate (Vistaril) 25 MG capsule Take 1 capsule (25 mg) by mouth every 8 hours as needed for anxiety for up to 10 days. 30 capsule 0 ipratropium-albuterol (Duo-Neb) 0.5-2.5 mg/3 mL nebulizer solution every 6 hours. ketoconazole (NIZOral) 2 % shampoo EVERY THREE DAYS levothyroxine (Synthroid, Levoxyl) 50 MCG tablet TAKE 1 TABLET BY MOUTH DAILY (Patient taking differently: Take 75 mcg by mouth every morning (before breakfast).) 30 tablet 0 losartan (Cozaar) 100 MG tablet Take 1 tablet (100 mg) by mouth daily. Do not start before February 15, 2023. 30 tablet 11 magnesium chloride 64 MG EC tablet Take 1 tablet (64 mg) by mouth daily (with breakfast). 60 tablet 0 mirtazapine (Remeron) 15 MG tablet Take 1 tablet (15 mg) by mouth Nightly. 30 tablet 0 niacin 100 MG tablet Every 24 hours. nicotine (Nicoderm, Step 1) 21 MG/24HR patch Place 1 patch on the skin daily. nicotine polacrilex (Commit) 2 MG lozenge Dissolve 1 lozenge (2 mg) in the mouth every 2 hours as needed for smoking cessation. 100 lozenge 0 nitroglycerin (Nitrostat) 0.4 MG SL tablet 1 tab(s) sublingually every 5 minutes x 3 doses prn pantoprazole (ProtoNix) 40 MG EC tablet Take 1 tablet (40 mg) by mouth in the morning and 1 tablet (40 mg) in the evening. Take before meals. Do not crush, chew, or split.. tamsulosin (Flomax) 0.4 MG 24 hr capsule Take 0.4 mg by mouth daily. thiamine (Vitamin B-1) 100 MG tablet Take 1 tablet (100 mg) by mouth daily. Do not start before April 16, 2023. 30 tablet 0 tiZANidine (Zanaflex) 4 MG tablet Take 1 tablet (4 mg) by mouth every 6 hours as needed for muscle spasms for up to 10 days. 30 tablet 0 Allergies: Allergies Allergen Reactions Allopurinol Other Breaks out in blisters Codeine Nausea Only Penicillin G Swelling REVIEW OF SYSTEMS: As per HPI otherwise 10 system review is unremarkable. Vitals: BP (!) 165/108 Pulse 100 Temp 37 C (98.6 F) (Oral) Resp 16 Ht 5' 10" (1.778 m) Wt 160 lb (72.6 kg) SpO2 98% BMI 22.96 kg/m BMI Classification: Normal Weight (BMI 18.5-24.9) Pulse Ox: SpO2 Av % Min: 98 % Max: 98 % Supplemental O2: PHYSICAL EXAM: Physical Exam Vitals and nursing note reviewed. Constitutional: General: He is not in acute distress. HENT: Head: Normocephalic and atraumatic. Mouth/Throat: Mouth: Mucous membranes are dry. Eyes: Extraocular Movements: Extraocular movements intact. Conjunctiva/sclera: Conjunctivae normal. Pupils: Pupils are equal, round, and reactive to light. Cardiovascular: Rate and Rhythm: Regular rhythm. Tachycardia present. Pulses: Normal pulses. Heart sounds: Murmur heard. Pulmonary: Effort: Pulmonary effort is normal. Breath sounds: Normal breath sounds. Abdominal: General: Bowel sounds are normal. There is no distension. Palpations: Abdomen is soft. Tenderness: There is no abdominal tenderness. There is no rebound. Musculoskeletal: General: Normal range of motion. Cervical back: Neck supple. Right lower leg: No edema. Left lower leg: No edema. Skin: General: Skin is warm and dry. Capillary Refill: Capillary refill takes less than 2 seconds. Neurological: General: No focal deficit present. Mental Status: He is alert. He is disoriented. Psychiatric: Comments: Calm currently. Appears intoxicated DATA: CBC: Recent Labs 04/22/242119 WBC 11.2* RBC 4.24* HGB 12.9* HCT 36.5* MCV 86.1 RDW 13.7 PLT 269 BMP: Recent Labs 04/22/242119 NA 127* K 4.2 CL 89* CO2 20* BUN 5* CREATININE 0.78 GLUCOSE 92 CALCIUM 9.4 ANIONGAP 18* LIVER PROFILE: Recent Labs 04/22/242119 AST 53* ALT 31 BILITOT 0.5 ALKPHOS 73 PROT 7.5 PT/INR: No results for input(s): "PROTIME", "INR" in the last 72 hours. CARDIAC ENZYMES: No results for input(s): "TROPONINI" in the last 72 hours. Procalcitonin: No results found for: "PROCAL" Urine Culture: Results for orders placed or performed during the hospital encounter of 12/22/22 Urine culture Specimen: Urine, Clean Catch Result Value Ref Range Urine Culture No growth (<1,000 CFU/mL) COVID-19 PCR: No results for input(s): "COVID19" in the last 72 hours. I reviewed: [x] laboratory results [x] radiographic results At the time of today's encounter. Pt was advised of the results. Assessment Alcohol intoxication Alcohol use disorder HTN with increased BP DM2 Hyponatremia Anemia Depression Hep C 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 GERD SHAYLA BPH Chronic pain Plan I discussed management with the ED clinician and agree with the need for hospitalization, monitor on telemetry, CIWA, phenobarb, ADM evaluation, prn apresoline, follow up BP, IVF, POCT ,SS insulin, fluid restriction, check serum/urine OSM, urine sodium, IS, PT/OT, follow up labs, review home meds and continue as appropriate, discharge planning, see admission orders. - am labs, replace lytes prn - PT/OT/CM/SW - delirium precautions: increase activity - DVT prophylaxis: enoxaparin and encourage ambulation Advance Directive: Prior Anticipated Discharge - Date - 04/25-04/26 - Location - Home vs skilled facility - Pending the following - clinical improvement, completion of detox, PT/OT, disposition finalization and when OK with ADM Total time spent (which include face to face and non face to face encounters) : 64 minutes. Toxic drug monitoring/narrow therapeutic index drug monitoring : # Drug name : # Route administered : # Method of monitoring : Extended Emergency Contact Information Primary Emergency Contact: Kingsley Carl Mobile Relation: Significant Other Kiel King MD Division of Hospitalist Medicine [facility] 04-22-2024 Note [facility] 04-22-2024 History and physical note Attending History and Physical Admit Date: 04/22/2024 PCP: Jani Quezada CHIEF COMPLAINT: depression/help with alcohol detox Reason for Admission: depression/help with alcohol detox History Obtained From: patient/chart HISTORY OF PRESENT ILLNESS: Woody is a 64 y.o. male with past medical history below who presents with chief complaint listed above. He has been depressed over his father dying in February, his dog dying and his spouse leaving him in March. He drinks a case of beer a day. He is intoxicated. He would like help with detox. He has been drinking for many years. He has had withdrawal seizures in the past. He denies cp, sob, cough, n/v, f/c, dizziness. He is weak. Will admit for further evaluation and management. 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 Nausea and vomiting 12/22/22-12/26/22 admitted at [facility] Pain management Sleep apnea noncompliant with device Past Surgical History: Past Surgical History: Procedure Laterality Date BACK SURGERY x 2 CHOLECYSTECTOMY LAMINECTOMY LAP,CHOLECYSTECTOMY (HISTORICAL) N/A 01/05/2023 WISDOM TOOTH EXTRACTION Social History: Social History Socioeconomic History Marital status: Spouse name: Not on file Number of children: Not on file Years of education: Not on file Highest education level: Not on file Occupational History Not on file Tobacco Use Smoking status: Every Day Types: Cigars Smokeless tobacco: Former Vaping Use Vaping status: Every Day Substances: CBD, canabis Devices: Disposable Substance and Sexual Activity Alcohol use: Yes Alcohol/week: 105.0 standard drinks of alcohol Types: 105 Cans of beer per week Comment: 15-18 beers/day Drug use: Yes Types: Marijuana Comment: daily Sexual activity: Not on file Other Topics Concern Not on file Social History Narrative Not on file Social Determinants of Health Financial Resource Strain: High Risk (01/15/2024) Overall Financial Resource Strain (CARDIA) Difficulty of Paying Living Expenses: Hard Food Insecurity: Food Insecurity Present (01/15/2024) Hunger Vital Sign Worried About Running Out of Food in the Last Year: Sometimes true Ran Out of Food in the Last Year: Sometimes true Transportation Needs: No Transportation Needs (01/15/2024) PRAPARE - Transportation Lack of Transportation (Medical): No Lack of Transportation (Non-Medical): No Physical Activity: Unknown (01/15/2024) Exercise Vital Sign Days of Exercise per Week: 0 days Minutes of Exercise per Session: Not on file Recent Concern: Physical Activity - Inactive (01/15/2024) Exercise Vital Sign Days of Exercise per Week: 0 days Minutes of Exercise per Session: 0 min Stress: No Stress Concern Present (04/03/2023) [employer] - Occupational Stress Questionnaire Feeling of Stress : Not at all Social Connections: Socially Isolated (12/07/2023) Social Connection and Isolation Panel [NHANES] Frequency of Communication with Friends and Family: Never Frequency of Social Gatherings with Friends and Family: Never Attends Amish Services: Never Active Member of Clubs or Organizations: No Attends Club or Organization Meetings: Not on file Marital Status: Living with partner Intimate Partner Violence: Not At Risk (01/15/2024) Humiliation, Afraid, Rape, and Kick questionnaire Fear of Current or Ex-Partner: No Emotionally Abused: No Physically Abused: No Sexually Abused: No Housing Stability: Low Risk (01/15/2024) Housing Stability Vital Sign Unable to Pay for Housing in the Last Year: No Number of Places Lived in the Last Year: 1 Unstable Housing in the Last Year: No Recent Concern: Housing Stability - High Risk (10/21/2023) Housing Stability Vital Sign Unable to Pay for Housing in the Last Year: Yes Number of Places Lived in the Last Year: 1 Unstable Housing in the Last Year: No Family History: Family History Problem Relation Name Age of Onset Depression Mother Depression Maternal Grandmother Medications Prior to Admission: No current facility-administered medications on file prior to encounter. Current Outpatient Medications on File Prior to Encounter Medication Sig Dispense Refill albuterol 108 (90 Base) MCG/ACT inhaler Inhale 2 puffs every 6 hours as needed for shortness of breath or wheezing. alendronate (Fosamax) 70 MG tablet Take 70 mg by mouth once a week. cyanocobalamin (Vitamin B-12) 1000 MCG/ML injection 1 mL intramuscularly once a month diphenhydrAMINE (BENADryl) 50 MG capsule Take 1 capsule (50 mg) by mouth every 6 hours as needed for itching. 30 tablet 0 diphenhydrAMINE-zinc acetate (BENADryl) cream Apply topically 3 times daily as needed for itching. 28 g 1 famotidine (Pepcid) 20 MG tablet Take 1 tablet (20 mg) by mouth 2 times daily. 60 tablet 0 fluticasone (Flonase) 50 MCG/ACT nasal spray Administer 1 spray into each nostril daily as needed. [] folic acid (Folvite) 1 MG tablet Take 1 tablet (1 mg) by mouth daily. Do not start before April 16, 2023. 30 tablet 0 hydrOXYzine HCl (Atarax) 25 MG tablet Take 25 mg by mouth every 6 hours as needed for itching. hydrOXYzine pamoate (Vistaril) 25 MG capsule Take 1 capsule (25 mg) by mouth every 8 hours as needed for anxiety for up to 10 days. 30 capsule 0 ipratropium-albuterol (Duo-Neb) 0.5-2.5 mg/3 mL nebulizer solution every 6 hours. ketoconazole (NIZOral) 2 % shampoo EVERY THREE DAYS levothyroxine (Synthroid, Levoxyl) 50 MCG tablet TAKE 1 TABLET BY MOUTH DAILY (Patient taking differently: Take 75 mcg by mouth every morning (before breakfast).) 30 tablet 0 losartan (Cozaar) 100 MG tablet Take 1 tablet (100 mg) by mouth daily. Do not start before February 15, 2023. 30 tablet 11 magnesium chloride 64 MG EC tablet Take 1 tablet (64 mg) by mouth daily (with breakfast). 60 tablet 0 mirtazapine (Remeron) 15 MG tablet Take 1 tablet (15 mg) by mouth Nightly. 30 tablet 0 niacin 100 MG tablet Every 24 hours. nicotine (Nicoderm, Step 1) 21 MG/24HR patch Place 1 patch on the skin daily. nicotine polacrilex (Commit) 2 MG lozenge Dissolve 1 lozenge (2 mg) in the mouth every 2 hours as needed for smoking cessation. 100 lozenge 0 nitroglycerin (Nitrostat) 0.4 MG SL tablet 1 tab(s) sublingually every 5 minutes x 3 doses prn pantoprazole (ProtoNix) 40 MG EC tablet Take 1 tablet (40 mg) by mouth in the morning and 1 tablet (40 mg) in the evening. Take before meals. Do not crush, chew, or split.. tamsulosin (Flomax) 0.4 MG 24 hr capsule Take 0.4 mg by mouth daily. thiamine (Vitamin B-1) 100 MG tablet Take 1 tablet (100 mg) by mouth daily. Do not start before April 16, 2023. 30 tablet 0 tiZANidine (Zanaflex) 4 MG tablet Take 1 tablet (4 mg) by mouth every 6 hours as needed for muscle spasms for up to 10 days. 30 tablet 0 Allergies: Allergies Allergen Reactions Allopurinol Other Breaks out in blisters Codeine Nausea Only Penicillin G Swelling REVIEW OF SYSTEMS: As per HPI otherwise 10 system review is unremarkable. Vitals: BP (!) 165/108 Pulse 100 Temp 37 C (98.6 F) (Oral) Resp 16 Ht 5' 10" (1.778 m) Wt 160 lb (72.6 kg) SpO2 98% BMI 22.96 kg/m BMI Classification: Normal Weight (BMI 18.5-24.9) Pulse Ox: SpO2 Av % Min: 98 % Max: 98 % Supplemental O2: PHYSICAL EXAM: Physical Exam Vitals and nursing note reviewed. Constitutional: General: He is not in acute distress. HENT: Head: Normocephalic and atraumatic. Mouth/Throat: Mouth: Mucous membranes are dry. Eyes: Extraocular Movements: Extraocular movements intact. Conjunctiva/sclera: Conjunctivae normal. Pupils: Pupils are equal, round, and reactive to light. Cardiovascular: Rate and Rhythm: Regular rhythm. Tachycardia present. Pulses: Normal pulses. Heart sounds: Murmur heard. Pulmonary: Effort: Pulmonary effort is normal. Breath sounds: Normal breath sounds. Abdominal: General: Bowel sounds are normal. There is no distension. Palpations: Abdomen is soft. Tenderness: There is no abdominal tenderness. There is no rebound. Musculoskeletal: General: Normal range of motion. Cervical back: Neck supple. Right lower leg: No edema. Left lower leg: No edema. Skin: General: Skin is warm and dry. Capillary Refill: Capillary refill takes less than 2 seconds. Neurological: General: No focal deficit present. Mental Status: He is alert. He is disoriented. Psychiatric: Comments: Calm currently. Appears intoxicated DATA: CBC: Recent Labs 04/22/242119 WBC 11.2* RBC 4.24* HGB 12.9* HCT 36.5* MCV 86.1 RDW 13.7 PLT 269 BMP: Recent Labs 04/22/242119 NA 127* K 4.2 CL 89* CO2 20* BUN 5* CREATININE 0.78 GLUCOSE 92 CALCIUM 9.4 ANIONGAP 18* LIVER PROFILE: Recent Labs 04/22/242119 AST 53* ALT 31 BILITOT 0.5 ALKPHOS 73 PROT 7.5 PT/INR: No results for input(s): "PROTIME", "INR" in the last 72 hours. CARDIAC ENZYMES: No results for input(s): "TROPONINI" in the last 72 hours. Procalcitonin: No results found for: "PROCAL" Urine Culture: Results for orders placed or performed during the hospital encounter of 12/22/22 Urine culture Specimen: Urine, Clean Catch Result Value Ref Range Urine Culture No growth (<1,000 CFU/mL) COVID-19 PCR: No results for input(s): "COVID19" in the last 72 hours. I reviewed: [x] laboratory results [x] radiographic results At the time of today's encounter. Pt was advised of the results. Assessment Alcohol intoxication Alcohol use disorder HTN with increased BP DM2 Hyponatremia Anemia Depression Hep C 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 GERD SHAYLA BPH Chronic pain Plan I discussed management with the ED clinician and agree with the need for hospitalization, monitor on telemetry, CIWA, phenobarb, ADM evaluation, prn apresoline, follow up BP, IVF, POCT ,SS insulin, fluid restriction, check serum/urine OSM, urine sodium, IS, PT/OT, follow up labs, review home meds and continue as appropriate, discharge planning, see admission orders. - am labs, replace lytes prn - PT/OT/CM/SW - delirium precautions: increase activity - DVT prophylaxis: enoxaparin and encourage ambulation Advance Directive: Prior Anticipated Discharge - Date - 04/25-04/26 - Location - Home vs skilled facility - Pending the following - clinical improvement, completion of detox, PT/OT, disposition finalization and when OK with ADM Total time spent (which include face to face and non face to face encounters) : 64 minutes. Toxic drug monitoring/narrow therapeutic index drug monitoring : # Drug name : # Route administered : # Method of monitoring : Extended Emergency Contact Information Primary Emergency Contact: Kingsley Carl Mobile Relation: Significant Other Kiel King MD Division of Hospitalist Medicine [facility] documented in this encounter [facility] 04-22-2024 Emergency department Note Detox rules signed by patient. Witnessed by [facility] RN. Ruperto Cortez RN 04/22/242203 [facility] 04-22-2024 Note NOTE: This result is for medical treatment only. Analysis performed using non-forensic procedures. [facility] 04-22-2024 Physician Emergency department Note EMERGENCY DEPARTMENT ENCOUNTER Pt Name: Woody Ni Birthdate 1960 Date of evaluation: 04/22/2024 ED Provider: Kassandra Adkins MD CHIEF COMPLAINT Chief Complaint Patient presents with Alcohol Intoxication Pt presents with squad for etoh intoxication. Per pt, he has consumed 24 beers this afternoon, which he reports is his normal for what he reports "for the last 50 years". Pt denies any cp, sob, n/v/d or headache. Pt also denies n/v/d. Pt has no other complaints or concerns at this time. Last drink at 1842. HISTORY OF PRESENT ILLNESS (Location/Symptom, Timing/Onset, Context/Setting, Quality, Duration, Modifying Factors, Severity) Note limiting factors. HPI Woody Ni is a 64 y.o. male who presents to the emergency department for alcohol intoxication. Patient states that he drinks about 24 beers a day and has been doing this since the age of 13. Has gone to alcohol drawl in the past and has had alcohol withdrawal seizures as well. His last drink was around 6 PM this evening. States that he was coming in in order to get help with detoxification. Nursing Notes were reviewed. 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 ALENDRONATE (FOSAMAX) 70 MG TABLET Take 70 mg by mouth once a week. CYANOCOBALAMIN (VITAMIN B-12) 1000 MCG/ML INJECTION 1 mL intramuscularly once a month DIPHENHYDRAMINE (BENADRYL) 50 MG CAPSULE Take 1 capsule (50 mg) by mouth every 6 hours as needed for itching. DIPHENHYDRAMINE-ZINC ACETATE (BENADRYL) CREAM Apply topically 3 times daily as needed for itching. FAMOTIDINE (PEPCID) 20 MG TABLET Take 1 tablet (20 mg) by mouth 2 times daily. FLUTICASONE (FLONASE) 50 MCG/ACT NASAL SPRAY Administer 1 spray into each nostril daily as needed. HYDROXYZINE HCL (ATARAX) 25 MG TABLET Take 25 mg by mouth every 6 hours as needed for itching. HYDROXYZINE PAMOATE (VISTARIL) 25 MG CAPSULE Take 1 capsule (25 mg) by mouth every 8 hours as needed for anxiety for up to 10 days. IPRATROPIUM-ALBUTEROL (DUO-NEB) 0.5-2.5 MG/3 ML NEBULIZER SOLUTION every 6 hours. KETOCONAZOLE (NIZORAL) 2 % SHAMPOO EVERY THREE DAYS LEVOTHYROXINE (SYNTHROID, LEVOXYL) 50 MCG TABLET TAKE 1 TABLET BY MOUTH DAILY LOSARTAN (COZAAR) 100 MG TABLET Take 1 tablet (100 mg) by mouth daily. Do not start before February 15, 2023. MAGNESIUM CHLORIDE 64 MG EC TABLET Take 1 tablet (64 mg) by mouth daily (with breakfast). MIRTAZAPINE (REMERON) 15 MG TABLET Take 1 tablet (15 mg) by mouth Nightly. NIACIN 100 MG TABLET Every 24 hours. NICOTINE (NICODERM, STEP 1) 21 MG/24HR PATCH Place 1 patch on the skin daily. NICOTINE POLACRILEX (COMMIT) 2 MG LOZENGE Dissolve 1 lozenge (2 mg) in the mouth every 2 hours as needed for smoking cessation. NITROGLYCERIN (NITROSTAT) 0.4 MG SL TABLET 1 tab(s) sublingually every 5 minutes x 3 doses prn PANTOPRAZOLE (PROTONIX) 40 MG EC TABLET Take 1 tablet (40 mg) by mouth in the morning and 1 tablet (40 mg) in the evening. Take before meals. Do not crush, chew, or split.. TAMSULOSIN (FLOMAX) 0.4 MG 24 HR CAPSULE Take 0.4 mg by mouth daily. THIAMINE (VITAMIN B-1) 100 MG TABLET Take 1 tablet (100 mg) by mouth daily. Do not start before April 16, 2023. TIZANIDINE (ZANAFLEX) 4 MG TABLET Take 1 tablet (4 mg) by mouth every 6 hours as needed for muscle spasms for up to 10 days. ALLERGIES Allopurinol, Codeine, and Penicillin g FAMILY HISTORY Family History Problem Relation Name Age of Onset Depression Mother Depression Maternal Grandmother SOCIAL HISTORY Social History Socioeconomic History Marital status: Tobacco Use Smoking status: Every Day Types: Cigars Smokeless tobacco: Former Vaping Use Vaping status: Every Day Substances: CBD, canabis Devices: Disposable Substance and Sexual Activity Alcohol use: Yes Alcohol/week: 105.0 standard drinks of alcohol Types: 105 Cans of beer per week Comment: 15-18 beers/day Drug use: Yes Types: Marijuana Comment: daily Social Determinants of Health Financial Resource Strain: High Risk (01/15/2024) Overall Financial Resource Strain (CARDIA) Difficulty of Paying Living Expenses: Hard Food Insecurity: Food Insecurity Present (01/15/2024) Hunger Vital Sign Worried About Running Out of Food in the Last Year: Sometimes true Ran Out of Food in the Last Year: Sometimes true Transportation Needs: No Transportation Needs (01/15/2024) PRAPARE - Transportation Lack of Transportation (Medical): No Lack of Transportation (Non-Medical): No Physical Activity: Unknown (01/15/2024) Exercise Vital Sign Days of Exercise per Week: 0 days Recent Concern: Physical Activity - Inactive (01/15/2024) Exercise Vital Sign Days of Exercise per Week: 0 days Minutes of Exercise per Session: 0 min Stress: No Stress Concern Present (04/03/2023) [employer] - Occupational Stress Questionnaire Feeling of Stress : Not at all Social Connections: Socially Isolated (12/07/2023) Social Connection and Isolation Panel [NHANES] Frequency of Communication with Friends and Family: Never Frequency of Social Gatherings with Friends and Family: Never Attends [employer] Services: Never Active Member of Clubs or Organizations: No Marital Status: Living with partner Intimate Partner Violence: Not At Risk (01/15/2024) Humiliation, Afraid, Rape, and Kick questionnaire Fear of Current or Ex-Partner: No Emotionally Abused: No Physically Abused: No Sexually Abused: No Housing Stability: Low Risk (01/15/2024) Housing Stability Vital Sign Unable to Pay for Housing in the Last Year: No Number of Places Lived in the Last Year: 1 Unstable Housing in the Last Year: No Recent Concern: Housing Stability - High Risk (10/21/2023) Housing Stability Vital Sign Unable to Pay for Housing in the Last Year: Yes Number of Places Lived in the Last Year: 1 Unstable Housing in the Last Year: No SCREENINGS Cheryl Coma Scale Best Eye Response: Spontaneous Best Verbal Response: Oriented Best Motor Response: Follows commands Cheryl Coma Scale Score: 15 PHYSICAL EXAM ED Triage Vitals [04/22/242042] Temp Heart Rate Resp BP 37 C (98.6 F) 100 16 (!) 165/108 SpO2 Temp Source Heart Rate Source Patient Position 98 % Oral -- -- BP Location FiO2 (%) -- -- Physical Exam Intoxicated Male in no acute distress. Vital signs reviewed and unremarkable. Head is normocephalic and atraumatic. Lungs are clear to auscultation bilaterally. No increased work of breathing. Abdomen soft nontender to palpation. DIAGNOSTIC RESULTS RADIOLOGY (Per Emergency Physician): Interpretation per the Radiologist below, if available at the time of this note: No orders to display LABS: Labs Reviewed CBC WITH AUTO DIFFERENTIAL - Abnormal Result Value Auto WBC 11.2 (*) RBC 4.24 (*) Hemoglobin 12.9 (*) Hematocrit 36.5 (*) MCV 86.1 MCH 30.4 MCHC 35.3 RDW 13.7 Platelets 269 MPV 8.2 (*) COMPREHENSIVE METABOLIC PANEL - Abnormal SODIUM 127 (*) POTASSIUM 4.2 CHLORIDE 89 (*) CARBON DIOXIDE 20 (*) ANION GAP 18 (*) UREA NITROGEN 5 (*) CREATININE 0.78 GLUCOSE 92 CALCIUM 9.4 AST (SGOT) 53 (*) ALT 31 ALKALINE PHOSPHATASE 73 ALBUMIN 4.6 BILIRUBIN, TOTAL 0.5 TOTAL PROTEIN 7.5 eGFR >90.0 ETHANOL - Abnormal ETHANOL IN SER/PLAS 0.309 (*) Narrative: NOTE: This result is for medical treatment only. Analysis performed using non-forensic procedures. ACETAMINOPHEN LEVEL - Abnormal ACETAMINOPHEN <10.0 (*) COMPLETE URINALYSIS - Abnormal Color, Urine Colorless Clarity, Urine Clear pH, Urine 5.5 Leukocytes, Urine Negative Nitrite, Urine Negative Protein, Urine Negative Glucose, Urine Normal Bilirubin, Urine Negative Ketones, Urine Negative Urobilinogen, Urine Normal Blood, Urine Negative SPECIFIC GRAVITY OF URINE (NUMERIC) 1.003 (*) SARS-COV-2 ANTIGEN DRUGS OF ABUSE AMPHETAMINE SCREEN Negative BARBITURATES SCREEN Positive BENZODIAZEPINE SCREEN Negative COCAINE METAB. SCREEN Negative METHADONE SCREEN Negative OPIATES SCREEN Negative OXYCODONE SCREEN Positive PHENCYCLIDINE SCREEN Negative Narrative: The expected value for all of the drugs listed above is Negative. The following drugs or drug groups have been screened for by Immunoassay at the following thresholds: Amphetamine class (1000 ng/mL) Barbiturates (200 ng/mL) Benzodiazepines (200 ng/mL) Cocaine (300 ng/mL) Methadone (300 ng/mL) Opiates (300 ng/mL) Oxycodone (100 ng/mL) PCP (25 ng/mL) NOTE: These results are for medical treatment only. Analysis performed using non-forensic procedures. POSITIVE results are NOT confirmed by a more specific alternative method unless requested. If confirmation is needed, request confirmation under separate order. COMPLETE URINALYSIS WITH REFLEX TO CULTURE Narrative: The following orders were created for panel order Complete Urinalysis with reflex to Culture. Procedure Abnormality Status --------- ------ Complete Urinalysis[[id number]] Abnormal Final result Please view results for these tests on the individual orders. MANUAL DIFFERENTIAL (CELLAVISION)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 Types: Marijuana Comment: daily Social Determinants of Health Financial Resource Strain: High Risk (01/15/2024) Overall Financial Resource Strain (CARDIA) Difficulty of Paying Living Expenses: Hard Food Insecurity: Food Insecurity Present (01/15/2024) Hunger Vital Sign Worried About Running Out of Food in the Last Year: Sometimes true Ran Out of Food in the Last Year: Sometimes true Transportation Needs: No Transportation Needs (01/15/2024) PRAPARE - Transportation Lack of Transportation (Medical): No Lack of Transportation (Non-Medical): No Physical Activity: Inactive (01/15/2024) Exercise Vital Sign Days of Exercise per Week: 0 days Minutes of Exercise per Session: 0 min Stress: No Stress Concern Present (04/03/2023) [employer] - Occupational Stress Questionnaire Feeling of Stress : Not at all Social Connections: Socially Isolated (12/07/2023) Social Connection and Isolation Panel [NHANES] Frequency of Communication with Friends and Family: Never Frequency of Social Gatherings with Friends and Family: Never Attends Amish Services: Never Active Member of Clubs or Organizations: No Marital Status: Living with partner Intimate Partner Violence: Not At Risk (01/15/2024) Humiliation, Afraid, Rape, and Kick questionnaire Fear of Current or Ex-Partner: No Emotionally Abused: No Physically Abused: No Sexually Abused: No Housing Stability: Low Risk (01/15/2024) Housing Stability Vital Sign Unable to Pay for Housing in the Last Year: No Number of Places Lived in the Last Year: 1 Unstable Housing in the Last Year: No Recent Concern: Housing Stability - High Risk (10/21/2023) Housing Stability Vital Sign Unable to Pay for Housing in the Last Year: Yes Number of Places Lived in the Last Year: 1 Unstable Housing in the Last Year: No PHYSICAL EXAM ED Triage Vitals [03/08/24 2232] Temp Heart Rate Resp BP 36.6 C (97.9 F) 109 18 133/87 SpO2 Temp Source Heart Rate Source Patient Position 95 % Temporal Monitor -- BP Location FiO2 (%) -- -- Physical Exam Constitutional: General: He is not in acute distress. Appearance: He is not ill-appearing. HENT: Head: Normocephalic. Eyes: Conjunctiva/sclera: Conjunctivae normal. Pulmonary: Effort: Pulmonary effort is normal. Abdominal: General: Abdomen is flat. Tenderness: There is no abdominal tenderness. Musculoskeletal: General: No deformity. Skin: General: Skin is warm and dry. Psychiatric: Mood and Affect: Mood normal. DIAGNOSTIC RESULTS RADIOLOGY (Per Emergency Physician): Interpretation per the Radiologist below, if available at the time of this note: No orders to display LABS: Labs Reviewed CBC WITH AUTO DIFFERENTIAL - Abnormal Result Value Auto WBC 9.0 RBC 4.32 (*) Hemoglobin 13.2 Hematocrit 37.0 (*) MCV 85.6 MCH 30.6 MCHC 35.7 RDW 11.9 Platelets 204 MPV 9.1 nRBC 0.0 Neutrophils Relative 84.9 (*) Lymphocytes Relative 11.6 (*) Monocytes Relative 1.2 (*) Eosinophils Relative 0.0 Basophils Relative 0.1 Immature Grans % 2.2 (*) Neutrophils Absolute 7.6 (*) Lymphocytes Absolute 1.0 Monocytes Absolute 0.1 Eosinophils Absolute 0.0 Basophils Absolute 0.0 Immature Grans Absolute 0.2 (*) COMPREHENSIVE METABOLIC PANEL - Abnormal SODIUM 130 (*) POTASSIUM 4.4 CHLORIDE 96 (*) CARBON DIOXIDE 14 (*) ANION GAP 19 (*) UREA NITROGEN 16 CREATININE 0.89 GLUCOSE 138 (*) CALCIUM 8.7 AST (SGOT) 35 ALT 33 ALKALINE PHOSPHATASE 49 ALBUMIN 4.2 BILIRUBIN, TOTAL 0.9 TOTAL PROTEIN 7.1 eGFR >90.0 ETHANOL - Abnormal ETHANOL IN SER/PLAS 0.284 (*) Narrative: NOTE: This result is for medical treatment only. Analysis performed using non-forensic procedures. ACETAMINOPHEN LEVEL - Abnormal ACETAMINOPHEN <10.0 (*) POCT VENOUS BLOOD GAS UNSOLICITED RESULTS - Abnormal pH, Venous 7.392 pCO2, Venous 27.6 (*) pO2, Venous 60.7 HCO3, Venous 16.8 (*) Base Excess, Venous -6.6 (*) SO2, Venous 91.2 FIO2 Narrative: Performed by: [facility], [address] [place] [id number] CLIA ID: [id number] SARS-COV-2 ANTIGEN - Normal SARS-CoV-2 Antigen Negative BETA HYDROXYBUTYRATE - Normal BETA HYDROXYBUTYRATE 0.81 SALICYLATE - Normal SALICYLATES <1.0 DRUGS OF ABUSE AMPHETAMINE SCREEN Negative BARBITURATES SCREEN Negative BENZODIAZEPINE SCREEN Negative COCAINE METAB. SCREEN Negative METHADONE SCREEN Negative OPIATES SCREEN Negative OXYCODONE SCREEN Negative PHENCYCLIDINE SCREEN Negative Narrative: The expected value for all of the drugs listed above is Negative. The following drugs or drug groups have been screened for by Immunoassay at the following thresholds: Amphetamine class (1000 ng/mL) Barbiturates (200 ng/mL) Benzodiazepines (200 ng/mL) Cocaine (300 ng/mL) Methadone (300 ng/mL) Opiates (300 ng/mL) Oxycodone (100 ng/mL) PCP (25 ng/mL) NOTE: These results are for medical treatment only. Analysis performed using non-forensic procedures. POSITIVE results are NOT confirmed by a more specific alternative method unless requested. If confirmation is needed, request confirmation under separate order. BLOOD GAS, VENOUS VOLATILE PANEL,SERUM All other labs were within normal range or not returned as of this dictation. EMERGENCY DEPARTMENT COURSE and DIFFERENTIAL DIAGNOSIS/MDM: Vitals: Vitals: 03/08/24 2232 03/08/24223303/08/24 2317 BP: 133/87 133/87 Pulse: 109 109 Resp: 18 Temp: 36.6 C (97.9 F) TempSrc: Temporal SpO2: 95% Weight: 74.8 kg (165 lb) Height: 1.778 m (5' 10") Medications thiamine (Vitamin B1) tablet 100 mg (has no administration in time range) folic acid (Folvite) tablet 1 mg (has no administration in time range) LORazepam (Ativan) tablet 1 mg ( Oral See Alternative 03/08/242347) Or LORazepam (Ativan) injection 1 mg ( IntraVENous See Alternative 03/08/242347) Or LORazepam (Ativan) tablet 2 mg (2 mg Oral Given 03/08/242347) Or LORazepam (Ativan) injection 2 mg ( IntraVENous See Alternative 03/08/242347) Or LORazepam (Ativan) tablet 3 mg ( Oral See Alternative 03/08/242347) Or LORazepam (Ativan) injection 3 mg ( IntraVENous See Alternative 03/08/242347) Or LORazepam (Ativan) tablet 4 mg ( Oral See Alternative 03/08/242347) Or LORazepam (Ativan) injection 4 mg ( IntraVENous See Alternative 03/08/242347) sodium chloride 0.9 % bolus 1,000 mL (1,000 mL IntraVENous New Bag 03/08/24 2342) dextrose 5 % and sodium chloride 0.9 % infusion (100 mL/hr IntraVENous New Bag 03/08/243) SCREENINGS 11:12 PM - The patient presented with chief complaint of alcohol intoxication, seeking detox. See history and physical exam above. Differential diagnose includes but is not limited to alcohol intoxication, alcohol withdrawal syndrome, other drug intoxication. Ativan ordered per [facility] protocol. To aid in management, I performed an independent interpretation of all laboratory tests, EKG, imaging, and other diagnostics ordered. Labs reveal hyponatremia, low bicarb, and elevated anion gap. VBG reveals normal pH, the patient is compensated. Beta hydroxybutyrate is negative, salicylate, acetaminophen, and volatile panel were ordered. The patient was given 1 L normal saline bolus and D5 normal saline infusion. Given the patient's electrolyte abnormalities he will require admission for further monitoring and evaluation. I discussed the case with admitting physician, Dr. Barker, who is agreeable. Patient's care was significantly impacted by social determinants of health including Alcoholism. PROCEDURES: Unless otherwise noted below, none Procedures CRITICAL CARE TIME FINAL IMPRESSION 1. Hyponatremia 2. Alcoholic intoxication without complication (CMS/HCC) (HCC) 3. Alcohol withdrawal syndrome without complication (HCC) 4. High anion gap metabolic acidosis DISPOSITION Admit 03/09/2024 12:37:06 AM PATIENT REFERRED TO: No follow-up provider specified. DISCHARGE MEDICATIONS: New Prescriptions No medications on file (Comment: Please note this report has been produced using speech recognition software and may contain errors related to that system including errors in grammar, punctuation, and spelling, as well as words and phrases that may be inappropriate. If there are any questions or concerns please feel free to contact the dictating provider for clarification.) Nir Driscoll DO (electronically signed) Emergency Medicine Provider Nir Driscoll DO 03/09/24 0038 documented in this encounter [facility] 03-09-2024 Hospital course Narrative Discharge Summary Woody Ni : 1960 ADMIT DATE: 03/08/2024 DISCHARGE DATE: 03/09/2024 PRIMARY CARE PHYSICIAN: Jani Quezada VISIT STATUS: Observation CODE STATUS: Prior DISCHARGE DIAGNOSES: Chronic ethanol abuse for detox Ethanol withdrawals mild with sweating and tremors High anion gap metabolic acidosis Major depression and anxiety Acute hyponatremia HOSPITAL COURSE: Patient is a 64-year-old gentleman with chronic ethanol abuse admitted to the hospital for interest in detox he had mild withdrawal effects with sweating and tremors, was in high anion gap metabolic acidosis with hyponatremia has history of major depression and anxiety, patient admitted and placed on CIWA protocol with thiamine and folic acid along with IV fluids, addiction medicine consulted for further management, however patient signed out AGAINST MEDICAL ADVICE citing reason : Home situation SIGNIFICANT DIAGNOSTIC STUDIES: CBC and CMP CONSULTANTS: Addiction medicine-not seen the patient RECOMMENDED NEXT STEPS: Follow-up with PCP/addiction medicine quit drinking ethanol DISCHARGE MEDICATIONS: Medication List ASK your doctor about these medications albuterol 108 (90 Base) MCG/ACT inhaler alendronate 70 MG tablet Commonly known as: Fosamax cyanocobalamin 1000 MCG/ML injection Commonly known as: Vitamin B-12 diphenhydrAMINE 50 MG capsule Commonly known as: BENADryl Take 1 capsule (50 mg) by mouth every 6 hours as needed for itching. diphenhydrAMINE-zinc acetate cream Commonly known as: BENADryl Apply topically 3 times daily as needed for itching. famotidine 20 MG tablet Commonly known as: Pepcid Take 1 tablet (20 mg) by mouth 2 times daily. fluticasone 50 MCG/ACT nasal spray Commonly known as: Flonase folic acid 1 MG tablet Commonly known as: Folvite Take 1 tablet (1 mg) by mouth daily. Do not start before April 16, 2023. hydrOXYzine HCl 25 MG tablet Commonly known as: Atarax hydrOXYzine pamoate 25 MG capsule Commonly known as: Vistaril Take 1 capsule (25 mg) by mouth every 8 hours as needed for anxiety for up to 10 days. ipratropium-albuterol 0.5-2.5 mg/3 mL nebulizer solution Commonly known as: Duo-Neb ketoconazole 2 % shampoo Commonly known as: NIZOral levothyroxine 50 MCG tablet Commonly known as: Synthroid, Levoxyl TAKE 1 TABLET BY MOUTH DAILY losartan 100 MG tablet Commonly known as: Cozaar Take 1 tablet (100 mg) by mouth daily. Do not start before February 15, 2023. magnesium chloride 64 MG EC tablet Take 1 tablet (64 mg) by mouth daily (with breakfast). mirtazapine 15 MG tablet Commonly known as: Remeron Take 1 tablet (15 mg) by mouth Nightly. niacin 100 MG tablet nicotine 21 MG/24HR patch Commonly known as: Nicoderm, Step 1 Place 1 patch on the skin daily. nicotine polacrilex 2 MG lozenge Commonly known as: Commit Dissolve 1 lozenge (2 mg) in the mouth every 2 hours as needed for smoking cessation. nitroglycerin 0.4 MG SL tablet Commonly known as: Nitrostat pantoprazole 40 MG EC tablet Commonly known as: ProtoNix Take 1 tablet (40 mg) by mouth in the morning and 1 tablet (40 mg) in the evening. Take before meals. Do not crush, chew, or split.. tamsulosin 0.4 MG 24 hr capsule Commonly known as: Flomax thiamine 100 MG tablet Commonly known as: Vitamin B-1 Take 1 tablet (100 mg) by mouth daily. Do not start before April 16, 2023. tiZANidine 4 MG tablet Commonly known as: Zanaflex Take 1 tablet (4 mg) by mouth every 6 hours as needed for muscle spasms for up to 10 days. DIET: Adult diet Regular ACTIVITY: COMPLEXITY OF FOLLOW UP: [] Moderate Complexity: follow up within 7-14 calendar days (97770) [] Severe Complexity: follow up within 7 calendar days (08119) FOLLOW UP TESTING, PENDING RESULTS OR REFERRALS AT TRANSITIONAL CARE VISIT: [] Yes [] No PENDING STUDIES: DISPOSITION: FACILITY/HOME CARE AGENCY NAME: Follow up with No follow-up provider specified. on INSTRUCTIONS TO MA/SW: Please call patient on day after discharge (must document patient contacted within 2 business days of discharge). FOLLOW UP QUESTIONS FOR MA/SW: 1. Did you get medications filled and taking them as instructed from discharge? 2. Are you following your discharge instructions from your hospital stay? 3. Please confirm patient is scheduled for a follow up appointment within the above time frame. DISCHARGE TIME : >56 min SIGNED: LAURA STEVENS MD, MD 03/09/2024, 4:07 PM documented in this encounter [facility] 03-09-2024 Note [facility] 03-09-2024 Emergency department Note [facility] RN spoke to pt. Regarding treatment. RN encouraged pt. To continue the plan to receive inpt. Detox tx.. Pt. Voiced concern for his belongings as he was not home when his SO left the pt. To go to [place]. [facility] RN reviewed residential treatment opportunities; [facility] in [place], [place] the pt. Must be detox/sober. [facility] in [place], [place] & [facility] who have male residential treatment facilities in [place], [place] & [place], [place] & the will coordinate transportation for the pt. & intoxicated. Both those residential companies will provide inpt. Detox & than move the pt. Into residential treatment. Pt. Has the contact information. Marjan An RN 03/09/24 1414 [facility] 03-09-2024 Emergency department Note Received call back from that pt home is secured. Pt still wanting to leave. Per Dr. Stevens pt is OK to leave AMA. Pt ride called. Anna Ramey RN 03/09/24 1251 [facility] 03-09-2024 Note Formatting of this n ote might be different from the original. Patient wants to leave the hospital seen at bedside and requested him to stay, he declined, he has mental capacity to make decisions. # He will sign out AGAINST MEDICAL ADVICE # He will return to the emergency department if symptoms severe -advised not to drive [facility] 03-09-2024 Note Formatting of this n ote might be different from the original. Patient wants to leave the hospital seen at bedside and requested him to stay, he declined, he has mental capacity to make decisions. # He will sign out AGAINST MEDICAL ADVICE # He will return to the emergency department if symptoms severe -advised not to drive [facility] 03-09-2024 Miscellaneous Notes Patient wants to leave the hospital seen at bedside and requested him to stay, he declined, he has mental capacity to make decisions. # He will sign out AGAINST MEDICAL ADVICE # He will return to the emergency department if symptoms severe -advised not to drive documented in this encounter [facility] 03-09-2024 Emergency department Note Pt states he is concerned about his home being open and would like to leave AMA. Pt has attempted contacting family and no one is able to go make sure his home is secure. This RN called [place] [employer] non-emergent line and requested officers secure the pt home. Pt aware and states he still wishes to leave AMA. Dr. Perez made aware. Anna Ramey RN 03/09/24 1225 [facility] 03-09-2024 Note NOTE:These results a re for medical treatment only. Analysis performed using non-forensic procedures. This test has not been cleared by the US Food and Drug Administration (FDA). The FDA has determined that such clearance or approval is not necessary. The performance chararcteristics have been determined by the clinical laboratories of [facility]. [facility] 03-09-2024 Note NOTE:These results a re for medical treatment only. Analysis performed using non-forensic procedures. This test has not been cleared by the US Food and Drug Administration (FDA). The FDA has determined that such clearance or approval is not necessary. The performance chararcteristics have been determined by the clinical laboratories of [facility]. [facility] 03-09-2024 History and physical note Images from the original note were not included. Attending History and Physical Admit Date: 03/08/2024 PCP: Jani Quezada CHIEF COMPLAINT: I want to be detoxed Reason for Admission: For ethanol detox, prevention of ethanol withdrawal effects History Obtained From: HISTORY OF PRESENT ILLNESS: Woody is a 64 y.o. male with past medical history below who presents with chief complaint listed above. Patient drinks about 18 beers every day drinking for last few years, he is also depressed as his left him and his dad 2 weeks ago Interested in detox-currently having mild tremors and diaphoresis, denies chest pain or shortness of breath, denies vomiting or diarrhea, patient given normal saline bolus in the emergency department along with CIWA protocol placement. Labs personally interpreted by me, venous ABG pCO2 27.6 and bicarb 16.8, sodium 130, potassium 4.4, bicarb of 14 and anion gap of 19 with BUN and creatinine 0.89/16, AST/ALT 35/33, serum glucose of 81, H&H 13.2/37, serum ethanol level 0.824 Urine drug screen is negative. Will admit for further evaluation and management. 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 Nausea and vomiting 12/22/22-12/26/22 admitted at [facility] Pain management Sleep apnea noncompliant with device Past Surgical History: Past Surgical History: Procedure Laterality Date BACK SURGERY x 2 CHOLECYSTECTOMY LAMINECTOMY LAP,CHOLECYSTECTOMY (HISTORICAL) N/A 01/05/2023 WISDOM TOOTH EXTRACTION Social History: Social History Socioeconomic History Marital status: Spouse name: Not on file Number of children: Not on file Years of education: Not on file Highest education level: Not on file Occupational History Not on file Tobacco Use Smoking status: Every Day Types: Cigars Smokeless tobacco: Former Vaping Use Vaping Use: Every day Substances: CBD, canabis Devices: Disposable Substance and Sexual Activity Alcohol use: Yes Alcohol/week: 105.0 standard drinks of alcohol Types: 105 Cans of beer per week Comment: 15-18 beers/day Drug use: Yes Types: Marijuana Comment: daily Sexual activity: Not on file Other Topics Concern Not on file Social History Narrative Not on file Social Determinants of Health Financial Resource Strain: High Risk (01/15/2024) Overall Financial Resource Strain (CARDIA) Difficulty of Paying Living Expenses: Hard Food Insecurity: Food Insecurity Present (01/15/2024) Hunger Vital Sign Worried About Running Out of Food in the Last Year: Sometimes true Ran Out of Food in the Last Year: Sometimes true Transportation Needs: No Transportation Needs (01/15/2024) PRAPARE - Transportation Lack of Transportation (Medical): No Lack of Transportation (Non-Medical): No Physical Activity: Inactive (01/15/2024) Exercise Vital Sign Days of Exercise per Week: 0 days Minutes of Exercise per Session: 0 min Stress: No Stress Concern Present (04/03/2023) [employer] - Occupational Stress Questionnaire Feeling of Stress : Not at all Social Connections: Socially Isolated (12/07/2023) Social Connection and Isolation Panel [NHANES] Frequency of Communication with Friends and Family: Never Frequency of Social Gatherings with Friends and Family: Never Attends [employer]ish Services: Never Active Member of Clubs or Organizations: No Attends Club or Organization Meetings: Not on file Marital Status: Living with partner Intimate Partner Violence: Not At Risk (01/15/2024) Humiliation, Afraid, Rape, and Kick questionnaire Fear of Current or Ex-Partner: No Emotionally Abused: No Physically Abused: No Sexually Abused: No Housing Stability: Low Risk (01/15/2024) Housing Stability Vital Sign Unable to Pay for Housing in the Last Year: No Number of Places Lived in the Last Year: 1 Unstable Housing in the Last Year: No Recent Concern: Housing Stability - High Risk (10/21/2023) Housing Stability Vital Sign Unable to Pay for Housing in the Last Year: Yes Number of Places Lived in the Last Year: 1 Unstable Housing in the Last Year: No Family History: Family History Problem Relation Name Age of Onset Depression Mother Depression Maternal Grandmother Medications Prior to Admission: No current facility-administered medications on file prior to encounter. Current Outpatient Medications on File Prior to Encounter Medication Sig Dispense Refill albuterol 108 (90 Base) MCG/ACT inhaler Inhale 2 puffs every 6 hours as needed for shortness of breath or wheezing. alendronate (Fosamax) 70 MG tablet Take 70 mg by mouth once a week. cyanocobalamin (Vitamin B-12) 1000 MCG/ML injection 1 mL intramuscularly once a month diphenhydrAMINE (BENADryl) 50 MG capsule Take 1 capsule (50 mg) by mouth every 6 hours as needed for itching. 30 tablet 0 diphenhydrAMINE-zinc acetate (BENADryl) cream Apply topically 3 times daily as needed for itching. 28 g 1 famotidine (Pepcid) 20 MG tablet Take 1 tablet (20 mg) by mouth 2 times daily. 60 tablet 0 fluticasone (Flonase) 50 MCG/ACT nasal spray Administer 1 spray into each nostril daily as needed. folic acid (Folvite) 1 MG tablet Take 1 tablet (1 mg) by mouth daily. Do not start before April 16, 2023. 30 tablet 0 hydrOXYzine HCl (Atarax) 25 MG tablet Take 25 mg by mouth every 6 hours as needed for itching. hydrOXYzine pamoate (Vistaril) 25 MG capsule Take 1 capsule (25 mg) by mouth every 8 hours as needed for anxiety for up to 10 days. 30 capsule 0 ipratropium-albuterol (Duo-Neb) 0.5-2.5 mg/3 mL nebulizer solution every 6 hours. ketoconazole (NIZOral) 2 % shampoo EVERY THREE DAYS levothyroxine (Synthroid, Levoxyl) 50 MCG tablet TAKE 1 TABLET BY MOUTH DAILY (Patient taking differently: Take 75 mcg by mouth every morning (before breakfast).) 30 tablet 0 losartan (Cozaar) 100 MG tablet Take 1 tablet (100 mg) by mouth daily. Do not start before February 15, 2023. 30 tablet 11 magnesium chloride 64 MG EC tablet Take 1 tablet (64 mg) by mouth daily (with breakfast). 60 tablet 0 mirtazapine (Remeron) 15 MG tablet Take 1 tablet (15 mg) by mouth Nightly. 30 tablet 0 niacin 100 MG tablet Every 24 hours. nicotine (Nicoderm, Step 1) 21 MG/24HR patch Place 1 patch on the skin daily. nicotine polacrilex (Commit) 2 MG lozenge Dissolve 1 lozenge (2 mg) in the mouth every 2 hours as needed for smoking cessation. 100 lozenge 0 nitroglycerin (Nitrostat) 0.4 MG SL tablet 1 tab(s) sublingually every 5 minutes x 3 doses prn pantoprazole (ProtoNix) 40 MG EC tablet Take 1 tablet (40 mg) by mouth in the morning and 1 tablet (40 mg) in the evening. Take before meals. Do not crush, chew, or split.. tamsulosin (Flomax) 0.4 MG 24 hr capsule Take 0.4 mg by mouth daily. thiamine (Vitamin B-1) 100 MG tablet Take 1 tablet (100 mg) by mouth daily. Do not start before April 16, 2023. 30 tablet 0 tiZANidine (Zanaflex) 4 MG tablet Take 1 tablet (4 mg) by mouth every 6 hours as needed for muscle spasms for up to 10 days. 30 tablet 0 Allergies: Allergies Allergen Reactions Allopurinol Other Breaks out in blisters Codeine Nausea Only Penicillin G Swelling REVIEW OF SYSTEMS: Constitutional: positive for tremors and sweating HEENT: Negative for congestion, postnasal drip and sneezing. Eyes: Negative for itching and visual disturbance. Respiratory: Negative for apnea, cough, choking, chest tightness, shortness of breath, wheezing and stridor. Cardiovascular: Negative for chest pain. Gastrointestinal: Positive for nausea, negative for vomiting, abdominal pain, diarrhea and blood in stool. Genitourinary: Negative for dysuria, frequency and flank pain. Musculoskeletal: Negative for myalgias and joint swelling. Skin: Negative for rash. Neurological: Negative for dizziness, tremors, seizures, syncope, facial asymmetry, speech difficulty, weakness, numbness and headaches. Hematological: Negative for adenopathy. Psychiatric/Behavioral: Positive for anxiety and depression, denies suicidal ideation Vitals: BP 113/61 Pulse 80 Temp 36.6 C (97.9 F) (Temporal) Resp 18 Ht 5' 10" (1.778 m) Wt 165 lb (74.8 kg) SpO2 96% BMI 23.68 kg/m BMI Classification: Normal Weight (BMI 18.5-24.9) Pulse Ox: SpO2 Av.3 % Min: 95 % Max: 100 % Supplemental O2: PHYSICAL EXAM: Physical Exam Constitutional: Appearance: He is ill-appearing and diaphoretic. Cardiovascular: Rate and Rhythm: Regular rhythm. Tachycardia present. Pulses: Normal pulses. Heart sounds: Normal heart sounds. Pulmonary: Effort: Pulmonary effort is normal. Breath sounds: Normal breath sounds. Abdominal: Palpations: Abdomen is soft. Musculoskeletal: General: Normal range of motion. Skin: General: Skin is warm. Capillary Refill: Capillary refill takes less than 2 seconds. Neurological: Mental Status: He is oriented to person, place, and time. Psychiatric: Mood and Affect: Mood is anxious. DATA: CBC: Recent Labs 03/08/240 WBC 9.0 RBC 4.32* HGB 13.2 HCT 37.0* MCV 85.6 RDW 11.9 PLT 204 BMP: Recent Labs 03/08/242299 NA 130* K 4.4 CL 96* CO2 14* BUN 16 CREATININE 0.89 GLUCOSE 138* CALCIUM 8.7 ANIONGAP 19* LIVER PROFILE: Recent Labs 03/08/242299 AST 35 ALT 33 BILITOT 0.9 ALKPHOS 49 PROT 7.1 PT/INR: No results for input(s): "PROTIME", "INR" in the last 72 hours. CARDIAC ENZYMES: No results for input(s): "TROPONINI" in the last 72 hours. Procalcitonin: No results found for: "PROCAL" Urine Culture: Results for orders placed or performed during the hospital encounter of 12/22/22 Urine culture Specimen: Urine, Clean Catch Result Value Ref Range Urine Culture No growth (<1,000 CFU/mL) COVID-19 PCR: No results for input(s): "COVID19" in the last 72 hours. I reviewed: [x] laboratory results [x] radiographic results At the time of today's encounter. Pt was advised of the results. Assessment Discussed management with the ED provider and agree with hospitalization. Acute, acute on chronic, unstable/uncontrolled chronic problems/diagnoses: Chronic ethanol abuse for detox Ethanol withdrawals mild with sweating and tremors High anion gap metabolic acidosis Major depression and anxiety Stable chronic problems affecting care, new non-acute diagnoses: 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 Nausea and vomiting 12/22/22-12/26/22 admitted at [facility] Pain management Sleep apnea noncompliant with device Plan As a result of the above findings & factors, the following mgmt was pursued: -Admit to the medical floor, consult addiction medicine, CIWA protocol, thiamine and folic acid, start Zoloft 50 mg daily Needs outpatient addiction medicine and psychiatry follow-up - am labs, replace lytes prn - PT/OT/CM/SW - delirium precautions: - DVT prophylaxis: Complexity: Risk: Advance Directive: Prior Anticipated Discharge - Date - - Location - - Pending the following - Total time spent (which include face to face and non face to face encounters) : 74 minutes. Toxic drug monitoring/narrow therapeutic index drug monitoring : # Drug name : # Route administered : # Method of monitoring : Extended Emergency Contact Information Primary Emergency Contact: Kingsley Carl Relation: Significant Other [employer] Woody Ni : 1960 Primary Care Physician: Jani Quezada The patient and/or family/surrogate voluntarily agreed to participate in ACP services. Patient s cognitive capacity: Code Status: [_] [FULL CODE - Continue all advanced life support: CPR,intubation,invasive procedures] [_] [DNR-CCA - DO NOT do CPR, intubation] [_] [DNR-HARDWOOD SAWYER - Comfort care only] [_] DNR form [was/was not] signed Summary of discussion: The patient health care POA/ surrogate is the following: [Condition that instigated the ACP on this DOS, relevant PMH, functional status, goals of care, and whom this was discussed with including names and relationship to the patient, and any relevant advance care documentation discussion] I answered all the patient/family questions that I could within the range and scope of the current medical situation. We discussed the medical conditions, risks, benefits, outcomes, and goals of care at this time for the patient's medical issues at hand in the face of the patient's chronic issues and current presentation. Total time spent: minutes were spent discussing the patient's resuscitation status, advance care planning, and end of life care, with patient and/or family/surrogate. LAURA STEVENS MD, MD Division of Hospitalist Medicine [facility] 03-09-2024 Note [facility] 03-09-2024 History and physical note Images from the original note were not included. Attending History and Physical Admit Date: 03/08/2024 PCP: Jani Quezada CHIEF COMPLAINT: I want to be detoxed Reason for Admission: For ethanol detox, prevention of ethanol withdrawal effects History Obtained From: HISTORY OF PRESENT ILLNESS: Woody is a 64 y.o. male with past medical history below who presents with chief complaint listed above. Patient drinks about 18 beers every day drinking for last few years, he is also depressed as his left him and his dad 2 weeks ago Interested in detox-currently having mild tremors and diaphoresis, denies chest pain or shortness of breath, denies vomiting or diarrhea, patient given normal saline bolus in the emergency department along with CIWA protocol placement. Labs personally interpreted by me, venous ABG pCO2 27.6 and bicarb 16.8, sodium 130, potassium 4.4, bicarb of 14 and anion gap of 19 with BUN and creatinine 0.89/16, AST/ALT 35/33, serum glucose of 81, H&H 13.2/37, serum ethanol level 0.824 Urine drug screen is negative. Will admit for further evaluation and management. 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 Nausea and vomiting 12/22/22-12/26/22 admitted at [facility] Pain management Sleep apnea noncompliant with device Past Surgical History: Past Surgical History: Procedure Laterality Date BACK SURGERY x 2 CHOLECYSTECTOMY LAMINECTOMY LAP,CHOLECYSTECTOMY (HISTORICAL) N/A 01/05/2023 WISDOM TOOTH EXTRACTION Social History: Social History Socioeconomic History Marital status: Spouse name: Not on file Number of children: Not on file Years of education: Not on file Highest education level: Not on file Occupational History Not on file Tobacco Use Smoking status: Every Day Types: Cigars Smokeless tobacco: Former Vaping Use Vaping Use: Every day Substances: CBD, canabis Devices: Disposable Substance and Sexual Activity Alcohol use: Yes Alcohol/week: 105.0 standard drinks of alcohol Types: 105 Cans of beer per week Comment: 15-18 beers/day Drug use: Yes Types: Marijuana Comment: daily Sexual activity: Not on file Other Topics Concern Not on file Social History Narrative Not on file Social Determinants of Health Financial Resource Strain: High Risk (01/15/2024) Overall Financial Resource Strain (CARDIA) Difficulty of Paying Living Expenses: Hard Food Insecurity: Food Insecurity Present (01/15/2024) Hunger Vital Sign Worried About Running Out of Food in the Last Year: Sometimes true Ran Out of Food in the Last Year: Sometimes true Transportation Needs: No Transportation Needs (01/15/2024) PRAPARE - Transportation Lack of Transportation (Medical): No Lack of Transportation (Non-Medical): No Physical Activity: Inactive (01/15/2024) Exercise Vital Sign Days of Exercise per Week: 0 days Minutes of Exercise per Session: 0 min Stress: No Stress Concern Present (04/03/2023) [employer] [place] [employer] - Occupational Stress Questionnaire Feeling of Stress : Not at all Social Connections: Socially Isolated (12/07/2023) Social Connection and Isolation Panel [NHANES] Frequency of Communication with Friends and Family: Never Frequency of Social Gatherings with Friends and Family: Never Attends Amish Services: Never Active Member of Clubs or Organizations: No Attends Club or Organization Meetings: Not on file Marital Status: Living with partner Intimate Partner Violence: Not At Risk (01/15/2024) Humiliation, Afraid, Rape, and Kick questionnaire Fear of Current or Ex-Partner: No Emotionally Abused: No Physically Abused: No Sexually Abused: No Housing Stability: Low Risk (01/15/2024) Housing Stability Vital Sign Unable to Pay for Housing in the Last Year: No Number of Places Lived in the Last Year: 1 Unstable Housing in the Last Year: No Recent Concern: Housing Stability - High Risk (10/21/2023) Housing Stability Vital Sign Unable to Pay for Housing in the Last Year: Yes Number of Places Lived in the Last Year: 1 Unstable Housing in the Last Year: No Family History: Family History Problem Relation Name Age of Onset Depression Mother Depression Maternal Grandmother Medications Prior to Admission: No current facility-administered medications on file prior to encounter. Current Outpatient Medications on File Prior to Encounter Medication Sig Dispense Refill albuterol 108 (90 Base) MCG/ACT inhaler Inhale 2 puffs every 6 hours as needed for shortness of breath or wheezing. alendronate (Fosamax) 70 MG tablet Take 70 mg by mouth once a week. cyanocobalamin (Vitamin B-12) 1000 MCG/ML injection 1 mL intramuscularly once a month diphenhydrAMINE (BENADryl) 50 MG capsule Take 1 capsule (50 mg) by mouth every 6 hours as needed for itching. 30 tablet 0 diphenhydrAMINE-zinc acetate (BENADryl) cream Apply topically 3 times daily as needed for itching. 28 g 1 famotidine (Pepcid) 20 MG tablet Take 1 tablet (20 mg) by mouth 2 times daily. 60 tablet 0 fluticasone (Flonase) 50 MCG/ACT nasal spray Administer 1 spray into each nostril daily as needed. folic acid (Folvite) 1 MG tablet Take 1 tablet (1 mg) by mouth daily. Do not start before April 16, 2023. 30 tablet 0 hydrOXYzine HCl (Atarax) 25 MG tablet Take 25 mg by mouth every 6 hours as needed for itching. hydrOXYzine pamoate (Vistaril) 25 MG capsule Take 1 capsule (25 mg) by mouth every 8 hours as needed for anxiety for up to 10 days. 30 capsule 0 ipratropium-albuterol (Duo-Neb) 0.5-2.5 mg/3 mL nebulizer solution every 6 hours. ketoconazole (NIZOral) 2 % shampoo EVERY THREE DAYS levothyroxine (Synthroid, Levoxyl) 50 MCG tablet TAKE 1 TABLET BY MOUTH DAILY (Patient taking differently: Take 75 mcg by mouth every morning (before breakfast).) 30 tablet 0 losartan (Cozaar) 100 MG tablet Take 1 tablet (100 mg) by mouth daily. Do not start before February 15, 2023. 30 tablet 11 magnesium chloride 64 MG EC tablet Take 1 tablet (64 mg) by mouth daily (with breakfast). 60 tablet 0 mirtazapine (Remeron) 15 MG tablet Take 1 tablet (15 mg) by mouth Nightly. 30 tablet 0 niacin 100 MG tablet Every 24 hours. nicotine (Nicoderm, Step 1) 21 MG/24HR patch Place 1 patch on the skin daily. nicotine polacrilex (Commit) 2 MG lozenge Dissolve 1 lozenge (2 mg) in the mouth every 2 hours as needed for smoking cessation. 100 lozenge 0 nitroglycerin (Nitrostat) 0.4 MG SL tablet 1 tab(s) sublingually every 5 minutes x 3 doses prn pantoprazole (ProtoNix) 40 MG EC tablet Take 1 tablet (40 mg) by mouth in the morning and 1 tablet (40 mg) in the evening. Take before meals. Do not crush, chew, or split.. tamsulosin (Flomax) 0.4 MG 24 hr capsule Take 0.4 mg by mouth daily. thiamine (Vitamin B-1) 100 MG tablet Take 1 tablet (100 mg) by mouth daily. Do not start before April 16, 2023. 30 tablet 0 tiZANidine (Zanaflex) 4 MG tablet Take 1 tablet (4 mg) by mouth every 6 hours as needed for muscle spasms for up to 10 days. 30 tablet 0 Allergies: Allergies Allergen Reactions Allopurinol Other Breaks out in blisters Codeine Nausea Only Penicillin G Swelling REVIEW OF SYSTEMS: Constitutional: positive for tremors and sweating HEENT: Negative for congestion, postnasal drip and sneezing. Eyes: Negative for itching and visual disturbance. Respiratory: Negative for apnea, cough, choking, chest tightness, shortness of breath, wheezing and stridor. Cardiovascular: Negative for chest pain. Gastrointestinal: Positive for nausea, negative for vomiting, abdominal pain, diarrhea and blood in stool. Genitourinary: Negative for dysuria, frequency and flank pain. Musculoskeletal: Negative for myalgias and joint swelling. Skin: Negative for rash. Neurological: Negative for dizziness, tremors, seizures, syncope, facial asymmetry, speech difficulty, weakness, numbness and headaches. Hematological: Negative for adenopathy. Psychiatric/Behavioral: Positive for anxiety and depression, denies suicidal ideation Vitals: BP 113/61 Pulse 80 Temp 36.6 C (97.9 F) (Temporal) Resp 18 Ht 5' 10" (1.778 m) Wt 165 lb (74.8 kg) SpO2 96% BMI 23.68 kg/m BMI Classification: Normal Weight (BMI 18.5-24.9) Pulse Ox: SpO2 Av.3 % Min: 95 % Max: 100 % Supplemental O2: PHYSICAL EXAM: Physical Exam Constitutional: Appearance: He is ill-appearing and diaphoretic. Cardiovascular: Rate and Rhythm: Regular rhythm. Tachycardia present. Pulses: Normal pulses. Heart sounds: Normal heart sounds. Pulmonary: Effort: Pulmonary effort is normal. Breath sounds: Normal breath sounds. Abdominal: Palpations: Abdomen is soft. Musculoskeletal: General: Normal range of motion. Skin: General: Skin is warm. Capillary Refill: Capillary refill takes less than 2 seconds. Neurological: Mental Status: He is oriented to person, place, and time. Psychiatric: Mood and Affect: Mood is anxious. DATA: CBC: Recent Labs 03/08/24 2300 WBC 9.0 RBC 4.32* HGB 13.2 HCT 37.0* MCV 85.6 RDW 11.9 PLT 204 BMP: Recent Labs 03/08/242299 NA 130* K 4.4 CL 96* CO2 14* BUN 16 CREATININE 0.89 GLUCOSE 138* CALCIUM 8.7 ANIONGAP 19* LIVER PROFILE: Recent Labs 03/08/24 2300 AST 35 ALT 33 BILITOT 0.9 ALKPHOS 49 PROT 7.1 PT/INR: No results for input(s): "PROTIME", "INR" in the last 72 hours. CARDIAC ENZYMES: No results for input(s): "TROPONINI" in the last 72 hours. Procalcitonin: No results found for: "PROCAL" Urine Culture: Results for orders placed or performed during the hospital encounter of 12/22/22 Urine culture Specimen: Urine, Clean Catch Result Value Ref Range Urine Culture No growth (<1,000 CFU/mL) COVID-19 PCR: No results for input(s): "COVID19" in the last 72 hours. I reviewed: [x] laboratory results [x] radiographic results At the time of today's encounter. Pt was advised of the results. Assessment Discussed management with the ED provider and agree with hospitalization. Acute, acute on chronic, unstable/uncontrolled chronic problems/diagnoses: Chronic ethanol abuse for detox Ethanol withdrawals mild with sweating and tremors High anion gap metabolic acidosis Major depression and anxiety Stable chronic problems affecting care, new non-acute diagnoses: 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 Nausea and vomiting 12/22/22-12/26/22 admitted at [facility] Pain management Sleep apnea noncompliant with device Plan As a result of the above findings & factors, the following mgmt was pursued: -Admit to the medical floor, consult addiction medicine, CIWA protocol, thiamine and folic acid, start Zoloft 50 mg daily Needs outpatient addiction medicine and psychiatry follow-up - am labs, replace lytes prn - PT/OT/CM/SW - delirium precautions: - DVT prophylaxis: Complexity: Risk: Advance Directive: Prior Anticipated Discharge - Date - - Location - - Pending the following - Total time spent (which include face to face and non face to face encounters) : 74 minutes. Toxic drug monitoring/narrow therapeutic index drug monitoring : # Drug name : # Route administered : # Method of monitoring : Extended Emergency Contact Information Primary Emergency Contact: Kingsley Carl Relation: Significant Other [employer] Woody Ni : 1960 Primary Care Physician: Jani Quezada The patient and/or family/surrogate voluntarily agreed to participate in ACP services. Patient s cognitive capacity: Code Status: [_] [FULL CODE - Continue all advanced life support: CPR,intubation,invasive procedures] [_] [DNR-CCA - DO NOT do CPR, intubation] [_] [DNR-HARDWOOD SAWYER - Comfort care only] [_] DNR form [was/was not] signed Summary of discussion: The patient health care POA/ surrogate is the following: [Condition that instigated the ACP on this DOS, relevant PMH, functional status, goals of care, and whom this was discussed with including names and relationship to the patient, and any relevant advance care documentation discussion] I answered all the patient/family questions that I could within the range and scope of the current medical situation. We discussed the medical conditions, risks, benefits, outcomes, and goals of care at this time for the patient's medical issues at hand in the face of the patient's chronic issues and current presentation. Total time spent: minutes were spent discussing the patient's resuscitation status, advance care planning, and end of life care, with patient and/or family/surrogate. LAURA STEVENS MD, MD Division of Hospitalist Medicine [facility] documented in this encounter [facility] 03-08-2024 Emergency department Note Pt. 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 Seizure pads applied to hospital bed. Marjan An RN 03/08/24 3742 [facility] 03-08-2024 Emergency department Note ACC RN spoke to pt. Regarding his Audit C score + 12; pt. Drinks daily > 18 beers daily over thew last 2 weeks. Pt. Drank today, 18 beers. Pt's. CIWA -14. Pt. Reports he recent inpt. Detox @ [facility] admit 01/15/24 thru 04/09/24 - 11 days. Pt. requesting inpt. Detox. ACC RN discussed residential treatment following detox to allow pt. time in a structured environment as the pt. completes IOP. ACC RN provided pt. With educational info regarding Strategies for Sobriety, Long & short-term effects of alcohol use, [facility] Resource info, [facility] Tx. Services, other community tx. Resources, Peer Youth Development Professional service info.. Pt. Signed MALINI for SO () & 2 sisters. Pt. Reports Mood disorder - anxiety, grieving loss of father & separation from SO. Pt. signed detox unit guidelines. Pt. has Medicare with [employer]. Marjan An RN 03/08/24 5300 [facility] 03-08-2024 Note NOTE: This result is for medical treatment only. Analysis performed using non-forensic procedures. [facility] 03-08-2024 Emergency department Note Below are additional resources that you may find beneficial in your treatment: 12-Step: Alcohol Anonymous: [place] [employer] Anon: [phone]: 12-step program for families & friends of people with addiction. CRISIS: Homeless Hotline: 722.161.1651 [facility]OMELESS [facility] 11/05 line-11/05 OFFICE: [phone] [facility]: [address] [place] [address] [phone] (24 Hours) Domestic Violence help line anytime: 797.923.3943 Crisis Hotline: 11/05- 226.734.9682 [facility] Addiction Helpline: 982.339.3854 (available 8:30 AM to 4:00 PM ) 2-1-1 2-1-1 helps people across [facility] find local resources when they don't know where to turn for help. We are available 24 hours a day, 7 days a week. For help, simply dial -- to speak to one of our trained professionals. DETOX TREATMENT: [facility], [place], [place] [phone] /[facility] Crisis Center: anytime @ [phone] for alcohol & drug addiction help. [facility] coordination: [phone] (Medicare not accepted) [facility], [place], [place] [phone] [facility] [place]: [phone] [facility], [place]: [phone], [place], [place]: [phone] [facility] [place] [phone] Adolescent detox [place], [place] [phone] [facility], [place]: [phone] [facility], [place], [place] [phone] ext. [phone] [place], [place] (pt. must be medically cleared prior to admission in ED) [facility], [place], [place] [phone] OUTPATIENT TREATMENT: [facility] Addiction [facility] @ [place], [place] [phone]. Intensive Outpatient Programs- [place], [place] [phone] [place], [place] [phone] [facility] [phone] [facility] Addiction Treatment: [place], [place] [phone] or [phone]. [facility]: [phone] [facility], [place]: [phone], [place]: [phone] [facility] [place]: [phone] [facility], [place]: [phone], [place]: [phone] [facility] [place]: [phone] [facility], [place], [place] [phone] [place] [facility], [place], [place] [phone] Behavioral Health Services: [facility]: [phone]-[phone], [place]-[phone], [place]- [phone] [facility], [place]: [phone]: [phone] [facility], [place], [place] [phone] [facility], [place], [place] [phone] RESIDENTIAL TREATMENT FACILITIES: [facility]: inpt. Or outpt. - [phone] [facility], [place], [place] [phone] [address] [place], [place] [phone] [facility] ([facility]) @ [facility] [phone] [facility] tx., [place], [place] [phone] (admission coordinated by -Adamaris Mcgovern ext [phone]) [facility], [place], [place]: [phone]; Men's services inpt. & women services - Outpt. [place], [place] [phone] [facility], [place], [place] [phone] [facility] [place], [place] [phone] [facility], [place], [place] [phone] [facility] [place], [place] [phone] [facility] - [place], [place] [phone] [facility], [place], [place] [phone] [place], [place] [phone] OTHER SERVICES: [email or web address] - [facility] Professional Service: [phone] [facility]: [phone] ext. [phone] Medicaid Health Coverage: [employer] [place]. JFS: [phone] Marjan An RN 03/08/24 [facility] 03-08-2024 Physician Emergency department Note EMERGENCY DEPARTMENT ENCOUNTER Pt Name: Woody Ni Birthdate 1960 Date of evaluation: 03/08/2024 ED Provider: Nir Driscoll DO CHIEF COMPLAINT Chief Complaint Patient presents with Alcohol Intoxication Pt requesting alcohol detox, states he drinking an 18 pack of beer daily. Pt states two recent periods of sobriety, one of 51 days and one of 59. Pt states he is depressed secondary to father passing two weeks ago and leaving him. Pt denies SI, HI, AVH. Pt denies seizures with detox. HISTORY OF PRESENT ILLNESS (Location/Symptom, Timing/Onset, Context/Setting, Quality, Duration, Modifying Factors, Severity) Note limiting factors. I wore appropriate PPE for the entirety of this encounter. HPI Woody Ni is a 64 y.o. who presents to the emergency department with alcohol intoxication seeking detox. The patient was brought to the emergency department by police. He reports that he has been drinking alcohol every day for a few weeks. He reports drinking about 18 standard drinks daily. His last drink was about 12 hours prior to presentation. He reports that he is seeking detox, he has prior history of periods of time where he has not been drinking alcohol. He admits to history of alcohol withdrawal seizures. He reports that he feels anxiety at this time. He denies other drug use. Denies other complaints. Nursing Notes were reviewed. Limitations to history: Outside historians: REVIEW OF SYSTEMS Review of Systems Psychiatric/Behavioral: The patient is nervous/anxious. Pertinent positives and negatives as per HPI PAST MEDICAL HISTORY 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 Nausea and vomiting 12/22/22-12/26/22 admitted at [facility] Pain management Sleep apnea noncompliant with device SURGICAL HISTORY Past Surgical History: Procedure Laterality Date BACK SURGERY x 2 CHOLECYSTECTOMY LAMINECTOMY LAP,CHOLECYSTECTOMY (HISTORICAL) N/A 01/05/2023 WISDOM TOOTH EXTRACTION CURRENT MEDICATIONS Previous Medications ALBUTEROL 108 (90 BASE) MCG/ACT INHALER Inhale 2 puffs every 6 hours as needed for shortness of breath or wheezing. ALENDRONATE (FOSAMAX) 70 MG TABLET Take 70 mg by mouth once a week. CYANOCOBALAMIN (VITAMIN B-12) 1000 MCG/ML INJECTION 1 mL intramuscularly once a month DIPHENHYDRAMINE (BENADRYL) 50 MG CAPSULE Take 1 capsule (50 mg) by mouth every 6 hours as needed for itching.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 Goal: Skin Integrity is Maintained or Improved Outcome: Progressing Goal: Nutritional status is improving Outcome: Progressing Problem: Urinary Incontinence Goal: Perineal skin integrity is maintained or improved Outcome: Progressing Problem: Problem Interventions Goal: Assess Nutritional Intake Outcome: Progressing The patient is Moderately Stable - Low risk of patient condition declining or worsening The patient's goals for the shift include rest The clinical goals for the shift include get admitted Problem: Pain Goal: My pain/discomfort is manageable Outcome: Progressing Problem: Safety Goal: Patient will be injury free during hospitalization Outcome: Progressing Problem: Safety Goal: I will remain free of falls Outcome: Progressing Problem: Daily Care Goal: Daily care needs are met Outcome: Progressing Problem: Psychosocial Needs Goal: Demonstrates ability to cope with hospitalization/illness Outcome: Progressing The patient is Moderately Stable - Low risk of patient condition declining or worsening The patient's goals for the shift include rest The clinical goals for the shift include remain HDS Problem: Pain Goal: My pain/discomfort is manageable Outcome: Progressing Problem: Safety Goal: Patient will be injury free during hospitalization Outcome: Progressing Goal: I will remain free of falls Outcome: Progressing Problem: Daily Care Goal: Daily care needs are met Outcome: Progressing Problem: Psychosocial Needs Goal: Demonstrates ability to cope with hospitalization/illness Outcome: Progressing Goal: Collaborate with me, my family, and caregiver to identify my specific goals Outcome: Progressing Problem: Discharge Barriers Goal: My discharge needs are met Outcome: Progressing Problem: Knowledge Deficit Goal: Patient/family/caregiver demonstrates understanding of disease process, treatment plan, medications, and discharge instructions Outcome: Progressing Problem: Potential for Compromised Skin Integrity Goal: Skin Integrity is Maintained or Improved Outcome: Progressing Goal: Nutritional status is improving Outcome: Progressing Problem: Urinary Incontinence Goal: Perineal skin integrity is maintained or improved Outcome: Progressing documented in this encounter [facility] 01-26-2024 Note Formatting of this n ote might be different from the original. Asked by [facility] to set transport to [facility]. Wheel chair transportation arranged through [employer] for 1300 last picker. 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 T [facility] 01-26-2024 Note Formatting of this n ote might be different from the original. Asked by [facility] to set transport to [facility]. Wheel chair transportation arranged through [facility] for 1300 last picker. 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 T [facility] 01-26-2024 Note Formatting of this n ote might be different from the original. Patient Choice Patient Name: WOODY NI Date of : 1960 All Providers Sent Referral Name: Zahroof Valves. Address: [address] [place] [address] Name: [place] - [facility] Member Phone: [phone] Address: [address] [place] [id number] T [facility] 01-26-2024 Note Formatting of this n ote might be different from the original. Patient Choice Patient Name: WOODY NI Date of : 1960 All Providers Sent Referral Name: Zahroof Valves. Address: [address] [place] [address] Name: [facility]al [facility] - [facility] Member Phone: [phone] Address: [address] [place] [id number] T [facility] 01-26-2024 Note Formatting of this n ote might be different from the original. Discharge med list transmitted to [facility] via [employer] per TCC request. [id number] was entered into [employer] for the [facility]. [facility] 01-26-2024 Note Formatting of this n ote might be different from the original. Discharge med list transmitted to [facility] via [employer] per TCC request. [id number] was entered into [employer] for the [facility]. [facility] 01-26-2024 Note [facility] 01-26-2024 Hospital course Narrative Discharge Summary Woody Ni : 1960 ADMIT DATE: 01/15/2024 DISCHARGE DATE: 01/26/2024 PRIMARY CARE PHYSICIAN: Jani Quezada VISIT STATUS: Admission CODE STATUS: Full Code DISCHARGE DIAGNOSES: Principal Problem: Alcohol withdrawal syndrome without complication (HCC) Active Problems: Other pancytopenia (CMS/HCC) (HCC) HOSPITAL COURSE: Pt with h/o alcoholism, anxiety/depression, HTN, hypothyroidism, SHAYLA, gout, HepC, liver cirrhosis, chronic pain , DM2, hyponatremia, ETOH induced pancreatitis Pt drinks 18 beer daily, last drink on 01/13 at 6 pm . Woke up in the morning with abdominal pain a/w N/V/Diarrhea and presented to [place] ED. In ED he was feeling tremulous like going through WD. Feeling better after antiemetics and lorazepam. Found to have COVID infection and unable to go to detox unit and was admitted to for further eval and management He completed 3 days remdesivir for severe disease ppx Completed phenobarb taper 01/19 Benadryl helps his chronic pruritus He was DC to [facility] SIGNIFICANT DIAGNOSTIC STUDIES: none CONSULTANTS: Psychiatry RECOMMENDED NEXT STEPS: SNF DISCHARGE MEDICATIONS: Medication List START taking these medications Diclofenac Sodium 1 % gel Commonly known as: Voltaren Apply 4 g topically 2 times daily. folic acid 1 MG tablet Commonly known as: Folvite Take 1 tablet (1 mg) by mouth daily. Do not start before April 16, 2023. magnesium chloride 64 MG EC tablet Take 1 tablet (64 mg) by mouth daily (with breakfast). miconazole 2 % powder Commonly known as: Micotin Apply topically 2 times daily. nicotine polacrilex 2 MG lozenge Commonly known as: Commit Dissolve 1 lozenge (2 mg) in the mouth every 2 hours as needed for smoking cessation. nystatin cream Commonly known as: Mycostatin Apply topically 2 times daily. CHANGE how you take these medications levothyroxine 50 MCG tablet Commonly known as: Synthroid, Levoxyl TAKE 1 TABLET BY MOUTH DAILY What changed: how much to take how to take this when to take this CONTINUE taking these medications albuterol 108 (90 Base) MCG/ACT inhaler alendronate 70 MG tablet Commonly known as: Fosamax cyanocobalamin 1000 MCG/ML injection Commonly known as: Vitamin B-12 famotidine 20 MG tablet Commonly known as: Pepcid Take 1 tablet (20 mg) by mouth 2 times daily. fluticasone 50 MCG/ACT nasal spray Commonly known as: Flonase hydrOXYzine HCl 25 MG tablet Commonly known as: Atarax ipratropium-albuterol 0.5-2.5 mg/3 mL nebulizer solution Commonly known as: Duo-Neb ketoconazole 2 % shampoo Commonly known as: NIZOral niacin 100 MG tablet nicotine 21 MG/24HR patch Commonly known as: Nicoderm, Step [address] Place 1 patch on the skin daily. nitroglycerin 0.4 MG SL tablet Commonly known as: Nitrostat pantoprazole 40 MG EC tablet Commonly known as: ProtoNix Take 1 tablet (40 mg) by mouth in the morning and 1 tablet (40 mg) in the evening. Take before meals. Do not crush, chew, or split.. tamsulosin 0.4 MG 24 hr capsule Commonly known as: Flomax thiamine 100 MG tablet Commonly known as: Vitamin B-1 Take 1 tablet (100 mg) by mouth daily. Do not start before April 16, 2023. STOP taking these medications calcium carbonate 500 MG chewable tablet Commonly known as: Tums Alana-C tablet magnesium oxide 400 (240 Mg) MG tablet Commonly known as: Mag-Ox ASK your doctor about these medications amLODIPine 2.5 MG tablet Commonly known as: Norvasc losartan 100 MG tablet Commonly known as: Cozaar Take 1 tablet (100 mg) by mouth daily. Do not start before February 15, 2023. olmesartan 40 MG tablet Commonly known as: BENIcar potassium chloride ER 10 MEQ ER capsule Commonly known as: Micro-K sodium chloride 1 g tablet Take 1 tablet (1 g) by mouth in the morning and 1 tablet (1 g) in the evening. Take with meals. Where to Get Your Medications These medications were sent to [facility] [address] [facility] [address], [facility] [id number] Diclofenac Sodium 1 % gel magnesium chloride 64 MG EC tablet miconazole 2 % powder nicotine polacrilex 2 MG lozenge nystatin cream DIET: Adult diet Regular; 2000 ml ACTIVITY: No restriction. COMPLEXITY OF FOLLOW UP: [x] Moderate Complexity: follow up within 7-14 calendar days (19296) [] Severe Complexity: follow up within 7 calendar days (14873) FOLLOW UP TESTING, PENDING RESULTS OR REFERRALS AT TRANSITIONAL CARE VISIT: [] Yes [x] No PENDING STUDIES: none DISPOSITION: Skilled Facility FACILITY/HOME CARE AGENCY NAME: [facility] Follow up with No follow-up provider specified. To pioneer MACKENZIE to schedule follow up INSTRUCTIONS TO MA/SW: Please call patient on day after discharge (must document patient contacted within 2 business days of discharge). FOLLOW UP QUESTIONS FOR MA/SW: 1. Did you get medications filled and taking them as instructed from discharge? 2. Are you following your discharge instructions from your hospital stay? 3. Please confirm patient is scheduled for a follow up appointment within the above time frame. DISCHARGE TIME: > 30 minutes SIGNED: Jose Maria Abad MD 01/26/2024, 8:11 AM documented in this encounter [facility] 01-26-2024 History of Present illness Narrative Images from the original note were not included. Hospitalist Progress Note 01/26/2024 Subjective: Admit Date: 01/15/2024 PCP: Jani Quezada Room#: D0-703/E5-359 A Chief Complaint Patient presents with Vomiting Withdrawal Alcohol BRIEF HOSPITAL COURSE: Pt with h/o alcoholism, anxiety/depression, HTN, hypothyroidism, SHAYLA, gout, HepC, liver cirrhosis, chronic pain , DM2, hyponatremia, ETOH induced pancreatitis Pt drinks 18 beer daily, last drink on 01/13 at 6 pm . Woke up in the morning with abdominal pain a/w N/V/Diarrhea and presented to [place] ED. In ED he was feeling tremulous like going through WD. Feeling better after antiemetics and lorazepam. Found to have COVID infection and unable to go to detox unit and was admitted to for further eval and management He completed 3 days remdesivir for severe disease ppx Completed phenobarb taper 01/19 Benadryl helps his chronic pruritus Awaiting SNF Interval History: No acute overnight changes He c/o itching and chronic pain and leg edema, unchanged. Patient is seen and examined, sitting comfortably on his bedside chair, not in acute distress, denies any new acute complaints Detox completed, Ativan discontinued Labs reviewed sodium 128, mildly low Case and plan of care discussed with patient and bedside nurse. All questions answered Adult diet Regular; 2000 ml 24HR INTAKE/OUTPUT: Intake/Output Summary (Last 24 hours) at 01/26/2024 0744 Last data filed at 01/26/2024 0626 Gross per 24 hour Intake 150 ml Output -- Net 150 ml 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 Nausea and vomiting 12/22/22-12/26/22 admitted at [facility] Pain management Sleep apnea noncompliant with device LABS: CBC: Recent Labs 01/24/24 0051 01/25/24 0114 01/26/24 0206 WBC 6.1 6.0 6.1 RBC 3.62* 3.71* 3.53* HGB 11.6* 11.7* 11.2* HCT 33.0* 34.0* 32.2* MCV 91.2 91.6 91.2 RDW 13.9 13.7 13.5 PLT 128* 141 151 BMP: Recent Labs 01/24/24 0051 01/25/24 0114 01/26/24 0206 NA 132* 129* 128* K 4.0 3.6 3.7 CL 103 102 101 CO2 18* 16* 17* BUN 12 9 5* CREATININE 0.86 0.94 0.92 GLUCOSE 97 100 95 CALCIUM 9.6 9.3 8.9 ANIONGAP 11 11 10 LIVER PROFILE: Recent Labs 01/26/24 0206 AST 22 ALT 18 BILITOT 0.6 ALKPHOS 50 PROT 6.7 PT/INR: No results for input(s): "PROTIME", "INR" in the last 72 hours. CARDIAC ENZYMES: No results for input(s): "TROPONINI" in the last 72 hours. Procalcitonin: No results found for: "PROCAL" COVID-19 PCR: No results for input(s): "COVID19" in the last 72 hours. Objective: Vitals: BP 157/93 (BP Location: Left arm, Patient Position: Sitting) Pulse 99 Temp 36.7 C (98 F) (Temporal) Resp 20 Ht 5' 10" (1.778 m) Wt 173 lb 3.2 oz (78.6 kg) SpO2 99% BMI 24.85 kg/m Pulse Ox: SpO2 Av.3 % Min: 97 % Max: 99 % Supplemental O2: O2 Flow Rate (L/min): 2.5 L/min Physical Exam Vitals and nursing note reviewed. Constitutional: Appearance: Ill appearance: chronically. Comments: Looks better HENT: Head: Normocephalic and atraumatic. Nose: Nose normal. Mouth/Throat: Mouth: Mucous membranes are moist. Eyes: Extraocular Movements: Extraocular movements intact. Cardiovascular: Rate and Rhythm: Normal rate and regular rhythm. Pulmonary: Effort: Pulmonary effort is normal. No respiratory distress. Breath sounds: Decreased breath sounds present. Abdominal: General: Bowel sounds are normal. There is no distension. Tenderness: There is no abdominal tenderness. Musculoskeletal: General: Swelling (improved) present. No tenderness. Skin: General: Skin is warm and dry. Neurological: General: No focal deficit present. Mental Status: He is alert. Medications: Scheduled PRN folic acid, 1 mg, Oral, Daily levothyroxine, 75 mcg, Oral, qAM AC losartan, 100 mg, Oral, Daily magnesium chloride, 1 tablet, Oral, Daily with breakfast miconazole, , Topical, BID mirtazapine, 15 mg, Oral, Nightly pantoprazole, 40 mg, Oral, BID sodium chloride, 1 g, Oral, BID WC tamsulosin, 0.4 mg, Oral, Daily thiamine, 100 mg, Oral, TID PRN medications: acetaminophen OR acetaminophen, calcium carbonate, diphenhydrAMINE, diphenhydrAMINE-zinc acetate, hydrOXYzine pamoate, labetalol, melatonin, ondansetron ODT OR ondansetron, polyethylene glycol (PEG) 3350, promethazine OR promethazine OR promethazine, sodium chloride, stomahesive in petrolatum, tiZANidine Continuous Assessment Data: (CAT1) Reviewed 2 or more notes from different specialty or health system (each=1). (CAT1) Reviewed 3 or more labs/studies ordered by another provider not previously counted (each=1, panels count as 1). (CAT3) Mgmt of the patient was discussed with RN regarding pt's condition and Tx plan (LOW: 2x CAT1 or independent historian MOD: 3x CAT1 or 1x CAT3 EXTENSIVE: 3x CAT1 and 1x CAT3) Acute, acute on chronic, unstable/uncontrolled chronic problems/diagnoses: ETOH withdrawal/severe alcohol dependence - phenobarb taper -> completed 01/19 - continue ativan prn . Needed x 2 in last 24 hrs - CIWA - thiamine, folate COVID -19 infection - completed remdesivir x 3 days - no hypoxia USD + opiates ( none given in ED and none prescribed on PDMP since 2022) Chronic pain - cont prn tylenol, voltaren gel, - lido patches - declining - prn tizanidine Abd pain/nausea/v/diarrhea - abd pain/n/v resolved - still occasional diarrhea/loose stools - appetite is poor , but improving --> encouraged ONS Dehydration Hyponatremia - acute on chronic - Na = 129 --> 133 -> 132--> 129-->128 - no improvement with NS --> IVF discontinued 01/19 - tsh,slightly elevated, but t3/4 wnl - supplement mg PO to keep >2 - noted pt used to be on salt tabs --> resumed 01/20 - add oral fluid restriction - monitor Groin irritation - miconazole powder + nystatin cream 9.. Hypomagnesemia - Mg = 1.6 on 01/18 -> supplement PO - today Mg = 1.5 - > cont PO and give 2 g IV 10. Hypokalemia - replace PO x 2 to keep K >4 11. Pruritus - benadryl prn 12. Leg edema - LE US : no DVT 13. Diarrhea - likely covid related - c. Diff negative Stable chronic problems affecting care, new non-acute diagnoses: Repeated falls Thrombocytopenia Anemia - b12, folate wnl in October 2023 Moderate malnutrition SHAYLA ( noncompliant with CPAP) Gout HCV - lft ok GERD BPH - resume flomax 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 - resume home levothyroxine Depression/anxiety - prn hydroxyzine . C/s psychiatry -->started mirtazapine. Appreciate input Chronic pain - lido patches , voltaren gel, prn tylenol HTN - at home on norvasc 2.5 and losartan 100 --> cont to hold norvasc ( leg edema) ; resumed losartan and monitor Plan As a result of the above findings & factors, the following mgmt was pursued: - as above - am labs, replace lytes prn - PT/OT/CM/SW - delirium precautions: increase activity and limit nighttime disturbances - DVT prophylaxis: SCDs and encourage ambulation Complexity: Acute illness with systemic symptoms (MOD). Risk: Prescription drug/IVF/colloid was initiated, discontinued, adjusted; or reviewed with decision to maintain current orders (MOD). Advance Directive: Full Code Anticipated Discharge - Date - tbd - Location -[facility] - Pending the following - precert (per notes accepted at [facility]) Total time spent (which include face to face and non face to face encounters) : 35 minutes Toxic drug monitoring/narrow therapeutic index drug monitoring : # Drug name : # Route administered : # Method of monitoring : Extended Emergency Contact Information Primary Emergency Contact: MalcomKingsley Relation: Significant Other Jose Maria Abad MD Division of Hospitalist Medicine Acute [facility] Pt asking RN this morning for ativan, zofran, zanaflex, vistaril, tylenol, and benedryl all at the same time. RN educated pt that these are PRN medications and not scheduled and can't all be given at the same time. Images from the original note were not included. PHYSICAL THERAPY [facility] Treatment Note Name/MRN: Woody Ni ([id number]) Date of : 1960 Age: 63 y.o. Room/Bed: [facility] A Discharge Recommendation: Detention Facility Equipment Needed: (TBD at next level of care) Prior Level of Function ADL Assistance: Independent Ambulation Assistance: Independent Device(s) used: cane Transfer Assistance: Independent Reports his works "all the time," does not have other assistance available. Assessment Pt with unsteady gait, forward flexed. Min assist for balance. Currently recommend SNF level therapy at discharge. Subjective Pt standing in room and walking towards trash can to throw away a bunch of old food. Agreeable to PT. Pt expresses that he is excited about going to [facility] later today. Pain: c/o chronic back pain, did not rate it on a pain scale. Medical Precautions: Droplet Plus Proper PPE donned/doffed in accordance with facility standards. Fall Risk: Maurice Fall Risk Score: 45 (High Risk) Precautions/Restrictions: Seizure Precautions Overall Cognitive Status: WNL Overall Orientation Status: Oriented x4 Family/Caregiver Present: none Objective Ambulation Ambulation 1 Assistive device(s) used: none Assist level: Min Assist Distance (ft): 5 ft, 12 ft Quality of gait: slow heide, instability through all phases, forward flexed. Transfers/Mobility Stand to sit: Min Assist Cues for hand placement, decreased eccentric control Device(s) used: none Exercises Exercises Hip Flexion: seated marching x 10 reps, AROM Hip Abduction: seated with no resistance x 10 reps Hip Adduction: seated with pillow squeeze x 10 reps Knee Long Arc Quad: seated x 10 reps, AROM with thigh supported Ankle Pumps: seated x 10 reps, AROM Upper Extremity: BUE punches x 10 reps, AROM Plan Continue acute PT per plan of care. Safety/Education Safety Safety Devices in place: All fall risk precautions in place, call light within reach, left in chair, and no alarms engaged upon entry Restraints: No Education HEP, Gait Outcome Measures AM-PAC AM-PAC Inpatient Mobility Raw Score (No Stairs) : 17 JH-HLM JH-HLM Score: Walked 10 steps or more (i.e. walked to restroom) Goals Patient Stated Goal: To get better, "I just need help" "to go to [facility] today" Encounter Problems Encounter Problems (Active) Mobility Patient will ambulate 300 feet with modified independence and least restrictive device in order to improve safety and independence with mobility. (Initiated) Start: 01/20/24 Expected End: 02/10/24 Transfers Patient will perform bed mobility with modified independence in order to improve independence and prepare for out of bed mobility. (Not Addressed) Start: 01/20/24 Expected End: 02/10/24 Patient will complete functional transfer with least restrictive device with modified independence in order to prepare for ambulation. (Progressing) Start: 01/20/24 Expected End: 02/10/24 Therapy Time Individual Co-treatment Time In 1139 Time Out 1156 Minutes 17 Timed Code Treatment Minutes: 17 Minutes (TP) Amarilys Leary PTA Images from the original note were not included. OCCUPATIONAL THERAPY [facility] Treatment Note Name/MRN: Woody Ni ([id number]) Date of : 1960 Age: 63 y.o. Room/Bed: E5-507/E5-507 A Discharge Recommendation: Detention Facility Other: TBD next level therapy Prior Level of Function ADL Assistance: Needs Assist Ambulation Assistance: Independent Device(s) used: cane Transfer Assistance: Independent Assessment Min assist for sit<->stand, standing, LE dressing and supv for set up for self feeding. Pt. demonstrated body tremors noted with standing. See above for dc recommendation. Subjective Pt. Up in his recliner, 10/10 back pain and requesting Ativan -informed nursing. Pt. Agreeable to OT with encouragment. Medical Precautions: Droplet Plus Proper PPE donned/doffed in accordance with facility standards. Fall Risk: Maurice Fall Risk Score: 35 (Medium Risk) Precautions/Restrictions: Seizure Precautions Family/Caregiver Present: none Objective ADLs Feeding: Supervision, after setup LE Dressing: Min Assist to doff/don socks and shoes sitting in the recliner Transfers/Mobility Sit to stand: Min Assist Stand to sit: Min Assist Standing balance: Min Assist With OT 2-3 min's. Device(s) used: none Cognition - Arousal/alertness: appropriate responses to stimuli - Following commands: follows one step commands with increased time and follows one step commands with repetition - Attention span: attends with cues to redirect - Memory: appears intact - Safety judgement: decreased awareness of need for assistance and decreased awareness of need for safety - Problem solving: assistance required to generate solutions - Insights: decreased awareness of deficits - Initiation: requires cues for some - Sequencing: requires cues for some Plan Continue acute OT per plan of care. Safety/Education Safety Safety Devices in place: All fall risk precautions in place, call light within reach, left in chair, patient at risk for falls, nurse notified, and no alarms engaged upon entry Restraints: No Education Education Given To: patient Education Provided: ADL Adaptive Strategies, Transfer Training, and Fall Prevention Education Education Method: Verbal and Demonstration Barriers to Learning: None Education Outcome: Verbalized Understanding and Demonstrated Understanding AM-PAC AM-PAC Inpatient Daily Activity Raw Score: 18 ADL Inpatient CMS G-Code Modifier: CK Goals Patient Stated Goal: To go to rehab Encounter Problems Encounter Problems (Active) Balance Patient will maintain dynamic standing balance for 6 minutes with modified independence in order to demonstrate decreased risk of falling. (Progressing) Start: 01/21/24 Expected End: 02/18/24 Bathing Patient will utilize adaptive techniques to bathe body with mod I (Not Addressed) Start: 01/21/24 Expected End: 02/18/24 Dressings Lower Extremities Patient will dress lower body with mod I (Progressing) Start: 01/21/24 Expected End: 02/18/24 Toileting Patient will complete toileting tasks at standard toilet with modified independence. (Not Addressed) Start: 01/21/24 Expected End: 02/18/24 Transfers Patient will complete functional transfer with straight cane with modified independence in order to prepare for ambulation. (Progressing) Start: 01/21/24 Expected End: 02/18/24 Therapy Time Individual Co-treatment Time In 1031 Time Out 1051 Minutes 20 Timed Code Treatment Minutes: 20 Minutes (selfcare-1) DARWIN Wade Images from the original note were not included. PHYSICAL THERAPY [facility] Name/MRN: Woody Ni ([id number]) Date: 01/25/2024 Attempted PT. Pt states he can't do any therapy right now because he needs his meds first. Will re-attempt as schedule allows. Amarilys Leary PTA Images from the original note were not included. Hospitalist Progress Note 01/25/2024 Subjective: Admit Date: 01/15/2024 PCP: Jani Quezada Room#: [id number] A Chief Complaint Patient presents with Vomiting Withdrawal Alcohol BRIEF HOSPITAL COURSE: Pt with h/o alcoholism, anxiety/depression, HTN, hypothyroidism, SHAYLA, gout, HepC, liver cirrhosis, chronic pain , DM2, hyponatremia, ETOH induced pancreatitis Pt drinks 18 beer daily, last drink on 01/13 at 6 pm . Woke up in the morning with abdominal pain a/w N/V/Diarrhea and presented to [place] ED. In ED he was feeling tremulous like going through WD. Feeling better after antiemetics and lorazepam. Found to have COVID infection and unable to go to detox unit and was admitted to for further eval and management He completed 3 days remdesivir for severe disease ppx Completed phenobarb taper / Benadryl helps his chronic pruritus Awaiting SNF Interval History: No acute overnight changes Patient is seen and examined, sitting comfortably on his bedside chair, not in acute distress, denies any new acute complaints Detox completed, Ativan discontinued Labs reviewed sodium 129, mildly low Case and plan of care discussed with patient and bedside nurse. All questions answered Adult diet Regular 24HR INTAKE/OUTPUT: No intake or output data in the 24 hours ending 01/25/24 1213 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 Nausea and vomiting 12/22/22-12/26/22 admitted at [facility] Pain management Sleep apnea noncompliant with device LABS: CBC: Recent Labs 01/23/24 0841 01/24/24 0051 01/25/24 0114 WBC 7.1 6.1 6.0 RBC 3.90* 3.62* 3.71* HGB 12.4* 11.6* 11.7* HCT 36.0* 33.0* 34.0* MCV 92.3 91.2 91.6 RDW 14.2 13.9 13.7 PLT 139* 128* 141 BMP: Recent Labs 01/23/24 0841 01/24/24 0051 01/25/24 011 NA 130* 132* 129* K 3.9 4.0 3.6 CL 98 103 102 CO2 19* 18* 16* BUN 8* 12 9 CREATININE 0.90 0.86 0.94 GLUCOSE 136* 97 100 CALCIUM 9.8 9.6 9.3 ANIONGAP 12 11 11 LIVER PROFILE: No results for input(s): "AST", "ALT", "BILITOT", "ALKPHOS", "PROT" in the last 72 hours. No lab exists for component: LABALBU PT/INR: No results for input(s): "PROTIME", "INR" in the last 72 hours. CARDIAC ENZYMES: No results for input(s): "TROPONINI" in the last 72 hours. Procalcitonin: No results found for: "PROCAL" COVID-19 PCR: No results for input(s): "COVID19" in the last 72 hours. Objective: Vitals: BP (!) 173/101 (BP Location: Right arm, Patient Position: Sitting) Pulse 89 Temp 36.8 C (98.3 F) (Temporal) Resp 18 Ht 5' 10" (1.778 m) Wt 172 lb 3.6 oz (78.1 kg) SpO2 99% BMI 24.71 kg/m Pulse Ox: SpO2 Av.5 % Min: 99 % Max: 100 % Supplemental O2: O2 Flow Rate (L/min): 2.5 L/min Physical Exam Vitals and nursing note reviewed. Constitutional: Appearance: Ill appearance: chronically. Comments: Looks better HENT: Head: Normocephalic and atraumatic. Nose: Nose normal. Mouth/Throat: Mouth: Mucous membranes are moist. Eyes: Extraocular Movements: Extraocular movements intact. Cardiovascular: Rate and Rhythm: Normal rate and regular rhythm. Pulmonary: Effort: Pulmonary effort is normal. No respiratory distress. Breath sounds: Decreased breath sounds present. Abdominal: General: Bowel sounds are normal. There is no distension. Tenderness: There is no abdominal tenderness. Musculoskeletal: General: Swelling (improved) present. No tenderness. Skin: General: Skin is warm and dry. Neurological: General: No focal deficit present. Mental Status: He is alert. Medications: Scheduled PRN folic acid, 1 mg, Oral, Daily levothyroxine, 75 mcg, Oral, qAM AC losartan, 100 mg, Oral, Daily magnesium chloride, 1 tablet, Oral, Daily with breakfast miconazole, , Topical, BID mirtazapine, 15 mg, Oral, Nightly pantoprazole, 40 mg, Oral, BID sodium chloride, 1 g, Oral, BID WC tamsulosin, 0.4 mg, Oral, Daily thiamine, 100 mg, Oral, TID PRN medications: acetaminophen OR acetaminophen, calcium carbonate, diphenhydrAMINE, diphenhydrAMINE-zinc acetate, hydrOXYzine pamoate, labetalol, melatonin, ondansetron ODT OR ondansetron, polyethylene glycol (PEG) 3350, promethazine OR promethazine OR promethazine, sodium chloride, stomahesive in petrolatum, tiZANidine Continuous Assessment Data: (CAT1) Reviewed 2 or more notes from different specialty or health system (each=1). (CAT1) Reviewed 3 or more labs/studies ordered by another provider not previously counted (each=1, panels count as 1). (CAT3) Mgmt of the patient was discussed with RN regarding pt's condition and Tx plan (LOW: 2x CAT1 or independent historian MOD: 3x CAT1 or 1x CAT3 EXTENSIVE: 3x CAT1 and 1x CAT3) Acute, acute on chronic, unstable/uncontrolled chronic problems/diagnoses: ETOH withdrawal/severe alcohol dependence - phenobarb taper -> completed 01/19 - continue ativan prn . Needed x 2 in last 24 hrs - CIWA - thiamine, folate COVID -19 infection - completed remdesivir x 3 days - no hypoxia USD + opiates ( none given in ED and none prescribed on PDMP since 2022) Chronic pain - cont prn tylenol, voltaren gel, - lido patches - declining - prn tizanidine Abd pain/nausea/v/diarrhea - abd pain/n/v resolved - still occasional diarrhea/loose stools - appetite is poor , but improving --> encouraged ONS Dehydration Hyponatremia - acute on chronic - Na = 129 --> 133 -> 132--> 129 - no improvement with NS --> IVF discontinued 01/19 - tsh,slightly elevated, but t3/4 wnl - supplement mg PO to keep >2 - noted pt used to be on salt tabs --> resumed 01/20 - monitor Groin irritation - miconazole powder + nystatin cream 9.. Hypomagnesemia - Mg = 1.6 on 01/18 -> supplement PO - today Mg = 1.5 - > cont PO and give 2 g IV 10. Hypokalemia - replace PO x 2 to keep K >4 11. Pruritus - benadryl pnr 12. Leg edema - LE US : no DVT 13. Diarrhea - likely covid related - c. Diff negative Stable chronic problems affecting care, new non-acute diagnoses: Repeated falls Thrombocytopenia Anemia - b12, folate wnl in October 2023 Moderate malnutrition SHAYLA ( noncompliant with CPAP) Gout HCV - lft ok GERD BPH - resume flomax 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 - resume home levothyroxine Depression/anxiety - prn hydroxyzine . C/s psychiatry -->started mirtazapine. Appreciate input Chronic pain - lido patches , voltaren gel, prn tylenol HTN - at home on norvasc 2.5 and losartan 100 --> cont to hold norvasc ( leg edema) ; resumed losartan and monitor Plan As a result of the above findings & factors, the following mgmt was pursued: - as above - am labs, replace lytes prn - PT/OT/CM/SW - delirium precautions: increase activity and limit nighttime disturbances - DVT prophylaxis: SCDs and encourage ambulation Complexity: Acute illness with systemic symptoms (MOD). Risk: Prescription drug/IVF/colloid was initiated, discontinued, adjusted; or reviewed with decision to maintain current orders (MOD). Advance Directive: Full Code Anticipated Discharge - Date - tbd - Location -SNF - Pending the following - snf acceptance and precert Total time spent (which include face to face and non face to face encounters) : 35 minutes Toxic drug monitoring/narrow therapeutic index drug monitoring : # Drug name : # Route administered : # Method of monitoring : Extended Emergency Contact Information Primary Emergency Contact: Kingsley Carl Relation: Significant Other Radha Berry MD Division of Hospitalist Medicine [facility] Images from the original note were not included. Hospitalist Progress Note 01/24/2024 Subjective: Admit Date: 01/15/2024 PCP: Jani Quezada Room#: [id number] A Chief Complaint Patient presents with Vomiting Withdrawal Alcohol BRIEF HOSPITAL COURSE: Pt with h/o alcoholism, anxiety/depression, HTN, hypothyroidism, SHAYLA, gout, HepC, liver cirrhosis, chronic pain , DM2, hyponatremia, ETOH induced pancreatitis Pt drinks 18 beer daily, last drink on 01/13 at 6 pm . Woke up in the morning with abdominal pain a/w N/V/Diarrhea and presented to [place] ED. In ED he was feeling tremulous like going through WD. Feeling better after antiemetics and lorazepam. Found to have COVID infection and unable to go to detox unit and was admitted to for further eval and management He completed 3 days remdesivir for severe disease ppx Completed phenobarb taper /3 Benadryl helps his chronic pruritus Interval History: Required ativan x 2 in the last 24 hrs again Reports sore throat today, says he vomited yesterday and this am Still having diarrhea. 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 Nausea and vomiting 12/22/22-12/26/22 admitted at [facility] Pain management Sleep apnea noncompliant with device LABS: CBC: Recent Labs 01/22/24 0003 01/23/24 0841 01/24/24 0051 WBC 4.7 7.1 6.1 RBC 3.26* 3.90* 3.62* HGB 10.6* 12.4* 11.6* HCT 30.1* 36.0* 33.0* MCV 92.3 92.3 91.2 RDW 14.0 14.2 13.9 PLT 83* 139* 128* BMP: Recent Labs 01/22/24 0003 01/23/24 0841 01/24/24 0051 NA 132* 130* 132* K 3.4* 3.9 4.0 CL 102 98 103 CO2 20* 19* 18* BUN 13 8* 12 CREATININE 0.71 0.90 0.86 GLUCOSE 111* 136* 97 CALCIUM 9.2 9.8 9.6 ANIONGAP 9 12 11 LIVER PROFILE: Recent Labs 01/22/24 0003 AST 29 ALT 20 BILITOT 0.4 ALKPHOS 43 PROT 6.8 PT/INR: No results for input(s): "PROTIME", "INR" in the last 72 hours. CARDIAC ENZYMES: No results for input(s): "TROPONINI" in the last 72 hours. Procalcitonin: No results found for: "PROCAL" COVID-19 PCR: No results for input(s): "COVID19" in the last 72 hours. Objective: Vitals: BP 127/80 (BP Location: Right arm, Patient Position: Lying) Pulse 68 Temp 36.6 C (97.9 F) (Temporal) Resp 13 Ht 5' 10" (1.778 m) Wt 172 lb 3.6 oz (78.1 kg) SpO2 97% BMI 24.71 kg/m Pulse Ox: SpO2 Av % Min: 97 % Max: 97 % Supplemental O2: O2 Flow Rate (L/min): 2.5 L/min Physical Exam Vitals and nursing note reviewed. Constitutional: Appearance: Ill appearance: chronically. HENT: Head: Normocephalic and atraumatic. Nose: Nose normal. Mouth/Throat: Mouth: Mucous membranes are moist. Eyes: Extraocular Movements: Extraocular movements intact. Cardiovascular: Rate and Rhythm: Normal rate and regular rhythm. Pulmonary: Effort: Pulmonary effort is normal. No respiratory distress. Breath sounds: Decreased breath sounds present. Abdominal: General: Bowel sounds are normal. There is no distension. Tenderness: There is no abdominal tenderness. Musculoskeletal: General: Swelling present. No tenderness. Skin: General: Skin is warm and dry. Neurological: General: No focal deficit present. Mental Status: He is alert. Medications: Scheduled PRN Diclofenac Sodium, 4 g, Topical, BID folic acid, 1 mg, Oral, Daily levothyroxine, 75 mcg, Oral, qAM AC Lidocaine, 2 patch, TransDERmal, Daily losartan, 100 mg, Oral, Daily magnesium chloride, 1 tablet, Oral, Daily with breakfast miconazole, , Topical, BID mirtazapine, 15 mg, Oral, Nightly nystatin, , Topical, BID sodium chloride, 1 g, Oral, BID WC tamsulosin, 0.4 mg, Oral, Daily thiamine, 100 mg, Oral, TID PRN medications: acetaminophen OR acetaminophen, calcium carbonate, diphenhydrAMINE, diphenhydrAMINE-zinc acetate, hydrOXYzine pamoate, labetalol, LORazepam, LORazepam, melatonin, nicotine polacrilex OR nicotine polacrilex, ondansetron ODT OR ondansetron, polyethylene glycol (PEG) 3350, promethazine OR promethazine OR promethazine, sodium chloride, stomahesive in petrolatum, tiZANidine Continuous Assessment Data: (CAT1) Reviewed 1 or more notes from different specialty or health system (each=1). (CAT1) Reviewed 2 or more labs/studies ordered by another provider not previously counted (each=1, panels count as 1). (CAT3) Mgmt of the patient was discussed with RN regarding pt's condition and Tx plan (LOW: 2x CAT1 or independent historian MOD: 3x CAT1 or 1x CAT3 EXTENSIVE: 3x CAT1 and 1x CAT3) Acute, acute on chronic, unstable/uncontrolled chronic problems/diagnoses: ETOH withdrawal/severe alcohol dependence - phenobarb taper -> completed 01/19 - continue ativan prn . Needed x 2 in last 24 hrs - CIWA - thiamine, folate COVID -19 infection - completed remdesivir x 3 days - no hypoxia USD + opiates ( none given in ED and none prescribed on PDMP since 2022) Chronic pain - cont prn tylenol, voltaren gel, - lido patches - declining - prn tizanidine Abd pain/nausea/v/diarrhea - abd pain/n/v resolved - still occasional diarrhea/loose stools - appetite is poor , but improving --> encouraged ONS Dehydration Hyponatremia - acute on chronic - Na = 129 --> 133 -> 132 - no improvement with NS --> IVF discontinued 01/19 - tsh,slightly elevated, but t3/4 wnl - supplement mg PO to keep >2 - noted pt used to be on salt tabs --> resumed 01/20, continue - monitor Groin irritation - miconazole powder + nystatin cream 9.. Hypomagnesemia - supplemented PO and IV - cont PO 10. Hypokalemia - replaced and improved 11. Pruritus - benadryl pnr 12. Leg edema - LE US : no DVT 13. Diarrhea - likely covid related - c. Diff negative Stable chronic problems affecting care, new non-acute diagnoses: Repeated falls Thrombocytopenia Anemia - b12, folate wnl in October 2023 Moderate malnutrition SHAYLA ( noncompliant with CPAP) Gout HCV - lft ok GERD BPH - resume flomax 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 - resume home levothyroxine Depression/anxiety - prn hydroxyzine . C/s psychiatry -->started mirtazapine. Appreciate input Chronic pain - lido patches , voltaren gel, prn tylenol HTN - at home on norvasc 2.5 and losartan 100 --> cont to hold norvasc ( leg edema) ; resumed losartan and monitor Plan As a result of the above findings & factors, the following mgmt was pursued: - as above - am labs, replace lytes prn - PT/OT/CM/SW - delirium precautions: increase activity and limit nighttime disturbances - DVT prophylaxis: SCDs and encourage ambulation Complexity: Acute illness with systemic symptoms (MOD). Risk: Prescription drug/IVF/colloid was initiated, discontinued, adjusted; or reviewed with decision to maintain current orders (MOD). Advance Directive: Full Code Anticipated Discharge - Date - tbd - Location -SNF - Pending the following - snf acceptance and precert Total time spent (which include face to face and non face to face encounters) : minutes Toxic drug monitoring/narrow therapeutic index drug monitoring : # Drug name : # Route administered : # Method of monitoring : Extended Emergency Contact Information Primary Emergency Contact: Kingsley Carl Relation: Significant Other Ethel Anna DO Division of Hospitalist Medicine [facility] Patient requesting Ativan stating so anxious and shaky Also requested tylenol and nausea med Images from the original note were not included. Hospitalist Progress Note 01/23/2024 Subjective: Admit Date: 01/15/2024 PCP: Jani Quezada Room#: [id number] A Chief Complaint Patient presents with Vomiting Withdrawal Alcohol BRIEF HOSPITAL COURSE: Pt with h/o alcoholism, anxiety/depression, HTN, hypothyroidism, SHAYLA, gout, HepC, liver cirrhosis, chronic pain , DM2, hyponatremia, ETOH induced pancreatitis Pt drinks 18 beer daily, last drink on 01/13 at 6 pm . Woke up in the morning with abdominal pain a/w N/V/Diarrhea and presented to [place] ED. In ED he was feeling tremulous like going through WD. Feeling better after antiemetics and lorazepam. Found to have COVID infection and unable to go to detox unit and was admitted to for further eval and management He completed 3 days remdesivir for severe disease ppx Completed phenobarb taper /3 Benadryl helps his chronic pruritus Interval History: Required ativan x 2 in the last 24 hrs Appetite is better Still having diarrhea, c.diff negative Awaiting SNF Adult diet Regular 24HR INTAKE/OUTPUT: No intake or output data in the 24 hours ending 01/23/24 0640 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 Nausea and vomiting 12/22/22-12/26/22 admitted at [facility] Pain management Sleep apnea noncompliant with device LABS: CBC: Recent Labs 01/21/2432201/22/24 0003 WBC 4.6 4.7 RBC 3.71* 3.26* HGB 11.8* 10.6* HCT 33.8* 30.1* MCV 91.1 92.3 RDW 13.9 14.0 PLT 82* 83* BMP: Recent Labs 01/21/2432201/22/24 0003 NA 133* 132* K 3.7 3.4* CL 104 102 CO2 22 20* BUN 14 13 CREATININE 0.75 0.71 GLUCOSE 101* 111* CALCIUM 9.6 9.2 ANIONGAP 7 9 LIVER PROFILE: Recent Labs 01/21/2432201/22/24 0003 AST 33 29 ALT 22 20 BILITOT 0.5 0.4 ALKPHOS 56 43 PROT 7.1 6.8 PT/INR: No results for input(s): "PROTIME", "INR" in the last 72 hours. CARDIAC ENZYMES: No results for input(s): "TROPONINI" in the last 72 hours. Procalcitonin: No results found for: "PROCAL" COVID-19 PCR: No results for input(s): "COVID19" in the last 72 hours. Objective: Vitals: BP 135/81 (BP Location: Left arm, Patient Position: Sitting) Pulse 85 Temp 36.7 C (98.1 F) (Temporal) Resp 18 Ht 5' 10" (1.778 m) Wt 172 lb 3.6 oz (78.1 kg) SpO2 98% BMI 24.71 kg/m Pulse Ox: SpO2 Av % Min: 98 % Max: 100 % Supplemental O2: O2 Flow Rate (L/min): 2.5 L/min Physical Exam Vitals and nursing note reviewed. Constitutional: Appearance: Ill appearance: chronically. Comments: Looks better HENT: Head: Normocephalic and atraumatic. Nose: Nose normal. Mouth/Throat: Mouth: Mucous membranes are moist. Eyes: Extraocular Movements: Extraocular movements intact. Cardiovascular: Rate and Rhythm: Normal rate and regular rhythm. Pulmonary: Effort: Pulmonary effort is normal. No respiratory distress. Breath sounds: Decreased breath sounds present. Abdominal: General: Bowel sounds are normal. There is no distension. Tenderness: There is no abdominal tenderness. Musculoskeletal: General: Swelling (improved) present. No tenderness. Skin: General: Skin is warm and dry. Neurological: General: No focal deficit present. Mental Status: He is alert. Medications: Scheduled PRN Diclofenac Sodium, 4 g, Topical, BID folic acid, 1 mg, Oral, Daily levothyroxine, 75 mcg, Oral, qAM AC Lidocaine, 2 patch, TransDERmal, Daily losartan, 100 mg, Oral, Daily magnesium chloride, 1 tablet, Oral, Daily with breakfast miconazole, , Topical, BID mirtazapine, 15 mg, Oral, Nightly nystatin, , Topical, BID sodium chloride, 1 g, Oral, BID WC tamsulosin, 0.4 mg, Oral, Daily thiamine, 100 mg, Oral, TID PRN medications: acetaminophen OR acetaminophen, calcium carbonate, diphenhydrAMINE, diphenhydrAMINE-zinc acetate, hydrOXYzine pamoate, labetalol, LORazepam, LORazepam, melatonin, nicotine polacrilex OR nicotine polacrilex, ondansetron ODT OR ondansetron, polyethylene glycol (PEG) 3350, promethazine OR promethazine OR promethazine, sodium chloride, stomahesive in petrolatum, tiZANidine Continuous Assessment Data: (CAT1) Reviewed 2 or more notes from different specialty or health system (each=1). (CAT1) Reviewed 3 or more labs/studies ordered by another provider not previously counted (each=1, panels count as 1). (CAT3) Mgmt of the patient was discussed with RN regarding pt's condition and Tx plan (LOW: 2x CAT1 or independent historian MOD: 3x CAT1 or 1x CAT3 EXTENSIVE: 3x CAT1 and 1x CAT3) Acute, acute on chronic, unstable/uncontrolled chronic problems/diagnoses: ETOH withdrawal/severe alcohol dependence - phenobarb taper -> completed 01/19 - continue ativan prn . Needed x 2 in last 24 hrs - CIWA - thiamine, folate COVID -19 infection - completed remdesivir x 3 days - no hypoxia USD + opiates ( none given in ED and none prescribed on PDMP since 2022) Chronic pain - cont prn tylenol, voltaren gel, - lido patches - declining - prn tizanidine Abd pain/nausea/v/diarrhea - abd pain/n/v resolved - still occasional diarrhea/loose stools - appetite is poor , but improving --> encouraged ONS Dehydration Hyponatremia - acute on chronic - Na = 129 --> 133 -> 132 - no improvement with NS --> IVF discontinued 01/19 - tsh,slightly elevated, but t3/4 wnl - supplement mg PO to keep >2 - noted pt used to be on salt tabs --> resumed 01/20 - monitor Groin irritation - miconazole powder + nystatin cream 9.. Hypomagnesemia - Mg = 1.6 on 01/18 -> supplement PO - today Mg = 1.5 - > cont PO and give 2 g IV 10. Hypokalemia - replace PO x 2 to keep K >4 11. Pruritus - benadryl pnr 12. Leg edema - LE US : no DVT 13. Diarrhea - likely covid related - c. Diff negative Stable chronic problems affecting care, new non-acute diagnoses: Repeated falls Thrombocytopenia Anemia - b12, folate wnl in October 2023 Moderate malnutrition SHAYLA ( noncompliant with CPAP) Gout HCV - lft ok GERD BPH - resume flomax 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 - resume home levothyroxine Depression/anxiety - prn hydroxyzine . C/s psychiatry -->started mirtazapine. Appreciate input Chronic pain - lido patches , voltaren gel, prn tylenol HTN - at home on norvasc 2.5 and losartan 100 --> cont to hold norvasc ( leg edema) ; resumed losartan and monitor Plan As a result of the above findings & factors, the following mgmt was pursued: - as above - am labs, replace lytes prn - PT/OT/CM/SW - delirium precautions: increase activity and limit nighttime disturbances - DVT prophylaxis: SCDs and encourage ambulation Complexity: Acute illness with systemic symptoms (MOD). Risk: Prescription drug/IVF/colloid was initiated, discontinued, adjusted; or reviewed with decision to maintain current orders (MOD). Advance Directive: Full Code Anticipated Discharge - Date - tbd - Location -SNF - Pending the following - snf acceptance and precert Total time spent (which include face to face and non face to face encounters) : minutes Toxic drug monitoring/narrow therapeutic index drug monitoring : # Drug name : # Route administered : # Method of monitoring : Extended Emergency Contact Information Primary Emergency Contact: Kingsley Carl Relation: Significant Other Ethel Anna DO Division of Hospitalist Medicine [facility] Nutrition Assessment Type and Reason for Visit: Reassess Nutrition Recommendations/Plan: Per MNT Protocol, will liberalize diet to promote PO intake Continue ONS: Ensure HP TID Encouraged frequent small meals Obtain current, actual weight (as able) for malnutrition assessment - will order per MNT protocol RD will monitor overall nutrition status and will follow weekly Malnutrition Assessment: Malnutrition Status: Insufficient data Context: Acute Illness Findings of the 6 clinical characteristics of malnutrition: Energy Intake: 50% or less of estimated energy requirements for 5 or more days Weight Loss: Unable to assess (need current weight) Body Fat Loss: Unable to assess (COVID isolation) Muscle Mass Loss: Unable to assess (COVID isolation) Fluid Accumulation: No significant fluid accumulation (per flowsheet) Sterilisation Technician Strength: Normal health outcomes liaison strength Nutrition Assessment: Pt with PMH including alcoholism, cirrhosis, HTN, DM, hepatitis C, hypothyroidism, gout, chronic back pain, SHAYLA, depression, falls, debility, presented to [facility] ED on 01/15/24 with N/V/D and abdominal pain present upon awakening. Pt reported that he drinks 18 beers daily, feeling tremulous like going through withdrawals. Symptoms improved with lorazepam + antiemetics + phenobarb; found to have COVID infection. He requests admission for detox, however due to isolation status cannot not go to detox unit. Noted social work is following due to complaints of food insecurity and financial struggles. He remains in [facility] plus isolation. RD called into room for interview. Pt reports no improvement in appetite or PO intake, states he is taking zofran however food is often cold when medicine takes effect. He is consuming ONS 100% generally and states he is tolerating those well. Pt does complain that santiago items he would like to order are prohibited. He is unsure why he has a GI soft diet ordered and denies symptoms of GERD or hx of ulcers. RD advised that diet will be liberalized and encouraged pt to order snack foods he can consume any time when appetite is good and medicine is effective. Ptverbalized understanding. Estimated Daily Nutrient Needs: Energy Requirements Based On: Kcal/kg Weight Used for Energy Requirements: [place] Weight for Energy Calculation (kg): 75 kg Total Energy Requirements (kcals/day): 27 kcal/kg = 2024 kcal/day Weight Used for Protein Requirements: [place] Weight in Kg Used for Protein Requirements: 75 kg Estimated Total Protein (g/day): 1.1 g/kg = 83 g/day Estimated Daily Total Fluid (ml/day): per MD Nutrition Related Findings: Nutrition History: Independent of feeding. Lives with: Spouse/significant other, Children Room Service Room Service: Selective GI symptoms: Decreased appetite. Pranav Scale Score: 21 .Wound Type: None Net IO Since Admission: -42 mL [01/22/24 1413] Edema: none Bowel Sounds (All Quadrants): Active, Present Abdomen Inspection: Soft, Nondistended Last BM Date: 01/18/24 Labs and meds reviewed: Diclofenac Sodium, 4 g, Topical, BID folic acid, 1 mg, Oral, Daily levothyroxine, 75 mcg, Oral, qAM AC Lidocaine, 2 patch, TransDERmal, Daily losartan, 100 mg, Oral, Daily magnesium chloride, 1 tablet, Oral, Daily with breakfast magnesium sulfate, 2,000 mg, IntraVENous, Once miconazole, , Topical, BID mirtazapine, 15 mg, Oral, Nightly nystatin, , Topical, BID potassium chloride CR, 40 mEq, Oral, BID sodium chloride, 1 g, Oral, BID WC tamsulosin, 0.4 mg, Oral, Daily thiamine, 100 mg, Oral, TID BMP: Recent Labs 01/20/24 0537 01/21/24 0323 01/22/24 0003 NA 129* 133* 132* K 3.7 3.7 3.4* CL 98 104 102 CO2 21* 22 20* BUN 8* 14 13 CREATININE 0.74 0.75 0.71 GLUCOSE 100 101* 111* CALCIUM 9.2 9.6 9.2 MG -- -- 1.5* Current Nutrition Therapies: Adult diet Regular; GI Catron (GERD/Peptic Ulcer) Current Oral Intake Average Meal Intake: 0% Average Supplements Intake: 76-100% (per pt report) Anthropometric Measures: Height: 177.8 cm (5' 10") Current Body Weight: (DANTE- no new weight) Admission Body Weight: 79.3 kg (174 lb 13.2 oz) ([facility] 01/14) Usual Body Weight: (171# on 02/11/23, 172# on 04/11/23, 160# on 10/22/23) [place] Body Weight (lbs) (Calculated): 166 lbs [place] Body Weight (Kg) (Calculated): 75 kg % [place] Body Weight (Calculated): 105.3 % BMI (kg/m2) (Calculated): 25.1 Weight Adjustment For: No Adjustment BMI Categories: Overweight (BMI 25.0-29.9) Wt Readings from Last 10 Encounters: 01/18/24 79.3 kg (174 lb 13.2 oz) 10/21/23 72.6 kg (160 lb) 06/22/23 74.8 kg (165 lb) 04/10/23 72.6 kg (160 lb) 03/10/23 78 kg (172 lb) 02/13/23 82.6 kg (182 lb 3.2 oz) 01/28/23 80.3 kg (177 lb) 01/09/23 83.9 kg (185 lb) 01/05/23 83 kg (183 lb) 12/29/22 83.3 kg (183 lb 11.2 oz) Nutrition Diagnosis: Inadequate protein-energy intake related to catabolic illness, altered GI function as evidenced by vomiting, nausea (reported poor intake, increased needs related to COVID infection) Inadequate protein intake related to other (comment) (excessive ETOH abuse) as evidenced by lab values, poor intake prior to admission Nutrition Interventions: Food and/or Nutrient Delivery: Continue Oral Nutrition Supplement, Modify Current Diet Nutrition Education/Counseling: No recommendation at this time Coordination of Nutrition Care: Continue to monitor while inpatient Goals: Goals: PO intake 75% or greater, by next RD assessment Nutrition Monitoring and Evaluation: Behavioral-Environmental Outcomes: None Identified Food/Nutrient Intake Outcomes: Food and Nutrient Intake, Supplement Intake Physical Signs/Symptoms Outcomes: Biochemical Data, Nutrition Focused Physical Findings, Skin, Weight, Diarrhea, GI Status, Nausea or Vomiting, Fluid Status or Edema, Hemodynamic Status, Meal Time Behavior Discharge Planning: Too soon to determine Sloane Lyons RD, LD Contact: *[phone] or via Tradyo chat Images from the original note were not included. OCCUPATIONAL THERAPY [facility] Treatment Note Name/MRN: Woody Ni ([id number]) Date of : 1960 Age: 63 y.o. Room/Bed: E5507/E5507 A Discharge Recommendation: Detention Facility Other: TBD next level therapy Prior Level of Function ADL Assistance: Needs Assist Ambulation Assistance: Independent Device(s) used: cane Transfer Assistance: Independent Assessment Currently, Pt required CGA for functional transfers and MIN A for functional mobility using FWW. Pt required MIN A for UB ADL and MIN A for LB ADL. Pt required CGA for toilet transfer and SBA for all aspects of toilet hygiene. Pt is limited by pain, decreased standing balance and decreased mobility hindering indep and safety with functional tasks. Recommending SNF upon discharge in order to achieve highest level of function. Subjective Pt seated in chair upon entry. Pt reports pain 10/10 in thoracic region, bilateral legs, and stomach- nsg notifed of such. Pt stated "I'm itching so damn bad- I could scratch my skin right off!" GRANADOS/L offered to assist in applying cream to arms, legs and back for comfort - Pt receptive- nsg notified of c/o of itching. Pt reported "I don't have anyone left that cares about me!" GRANADOS/L provdied Pt provided with coping and grounding strategies to assist with emotional wellbeing- Nsg notified that Pt verbally expressing feelings of depression/ anxiety. Pain: RN managing pain. Medical Precautions: Droplet Plus Proper PPE donned/doffed in accordance with facility standards. Fall Risk: Maurice Fall Risk Score: 30 (Medium Risk) Precautions/Restrictions: Seizure Precautions Family/Caregiver Present: none Objective ADLs Grooming: Contact Guard- progressed from sitting to standing to perform oral hygiene with verbal cues for sequencing and gathering ADL supplies required. UE Bathing: MIN A - physical assist to wash back and apply cream to dorsal aspects of bilateral arms and sides of body d/t c/o of itching. LE Bathing: Contact Guard- to wash from thighs to knees- difficulty with functional reach/ pain in thoracic region- educated on LHS to increase safety and indep. LE Dressing: MIN A to doff/ claritza gripper socks with physical assist to claritza R sock- Pt able to claritza L sock using figure four method- however, declined use of AE. Toileting: Min Assist- for safety turning and backing up towards commode; SBA for all aspects of toilet hygiene. - Pt declined UB Dressing- and opted to keep personal clothes on and not claritza new clothing at this time. Transfers/Mobility Sit to stand: Contact Guard- x 3 from chair level with tactile cues for anterior wt shift. Stand to sit: SBA + verbal cues for correct hand placement. Sitting balance: Supervision Standing balance: Contact Guard, Min Assist- CGA for static standing balance approx 6 minutes ; MIN A for dynamic standing balance with focus on functional reaching in multiple directions and heights d/t decreased wt shifting when crossing midline + tactile cues for improved posture and wt shifting to increase safety. Functional mobility: Min Assist- ambulating from chair towards bathroom x 2 using FWW + tactile cues for safe walker mgmt and increasing narrow JM. Device(s) used: front wheeled walker Cognition - Following commands: follows one step commands with increased time - Memory: decreased short term memory - Safety judgement: decreased awareness of need for assistance - Problem solving: assistance required to generate solutions - Insights: decreased awareness of deficits - Initiation: requires cues for some - Sequencing: requires cues for some Plan Continue acute OT per plan of care. Safety/Education Safety Safety Devices in place: All fall risk precautions in place, call light within reach, left in chair, chair alarm in place, and nurse notified Restraints: No Education Education Given To: patient Education Provided: OT Role, Plan of Care, Transfer Training, Energy Conservation, Orientation, Discharge Recommendations, Benefits of Increasing Activity, Breathing Techniques, and Coping/ grounding strategies d/t anxiety and depression. Education Method: Verbal, Demonstration, and Teach Back Barriers to Learning: Cognition Education Outcome: Verbalized Understanding and Continued Education Needed AM-PAC AM-PAC Inpatient Daily Activity Raw Score: 18 ADL Inpatient CMS G-Code Modifier: CK Goals Patient Stated Goal: To go to rehab Encounter Problems Encounter Problems (Active) Balance Patient will maintain dynamic standing balance for 6 minutes with modified independence in order to demonstrate decreased risk of falling. (Slowly Progressing) Start: 01/21/24 Expected End: 02/18/24 Bathing Patient will utilize adaptive techniques to bathe body with mod I (Progressing) Start: 01/21/24 Expected End: 02/18/24 Dressings Lower Extremities Patient will dress lower body with mod I (Progressing) Start: 01/21/24 Expected End: 02/18/24 Toileting Patient will complete toileting tasks at standard toilet with modified independence. (Progressing) Start: 01/21/24 Expected End: 02/18/24 Transfers Patient will complete functional transfer with straight cane with modified independence in order to prepare for ambulation. (Slowly Progressing) Start: 01/21/24 Expected End: 02/18/24 Therapy Time Individual Co-treatment Time In 922 Time Out 1001 Minutes 38 Timed Code Treatment Minutes: 38 Minutes (2-ADL; 1- FUNCT ACT) DARWIN Lewis Images from the original note were not included. Hospitalist Progress Note 01/22/2024 Subjective: Admit Date: 01/15/2024 PCP: Jani Quezada Room#: E5-550/E5-656 A Chief Complaint Patient presents with Vomiting Withdrawal Alcohol BRIEF HOSPITAL COURSE: Pt with h/o alcoholism, anxiety/depression, HTN, hypothyroidism, SHAYLA, gout, HepC, liver cirrhosis, chronic pain , DM2, hyponatremia, ETOH induced pancreatitis Pt drinks 18 beer daily, last drink on 01/13 at 6 pm . Woke up in the morning with abdominal pain a/w N/V/Diarrhea and presented to [place] ED. In ED he was feeling tremulous like going through WD. Feeling better after antiemetics and lorazepam. Found to have COVID infection and unable to go to detox unit and was admitted to for further eval and management He completed 3 days remdesivir for severe disease ppx Interval History: Completed phenobarb taper 01/19 Received ativan x 1 yesterday Benadryl helps his pruritus Says his skin has been itchy for years, says drinking alcohol helps Reports 7 - 8 episodes of diarrhea since yesterday Appetite improved Adult diet Regular; GI Catron (GERD/Peptic Ulcer) 24HR INTAKE/OUTPUT: Intake/Output Summary (Last 24 hours) at 01/22/2024 0824 Last data filed at 01/22/2024 0526 Gross per 24 hour Intake 880 ml Output 300 ml Net 580 ml 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 Nausea and vomiting 12/22/22-12/26/22 admitted at [facility] Pain management Sleep apnea noncompliant with device LABS: CBC: Recent Labs 01/20/2453601/21/2432201/22/24 0003 WBC 5.3 4.6 4.7 RBC 3.66* 3.71* 3.26* HGB 11.7* 11.8* 10.6* HCT 33.2* 33.8* 30.1* MCV 90.7 91.1 92.3 RDW 13.6 13.9 14.0 PLT 79* 82* 83* BMP: Recent Labs 01/20/2453601/21/2432201/22/24 0003 NA 129* 133* 132* K 3.7 3.7 3.4* CL 98 104 102 CO2 21* 22 20* BUN 8* 14 13 CREATININE 0.74 0.75 0.71 GLUCOSE 100 101* 111* CALCIUM 9.2 9.6 9.2 ANIONGAP 9 7 9 LIVER PROFILE: Recent Labs 01/20/2453601/21/2432201/22/24 0003 AST 38 33 29 ALT 21 22 20 BILITOT 0.5 0.5 0.4 ALKPHOS 58 56 43 PROT 7.0 7.1 6.8 PT/INR: No results for input(s): "PROTIME", "INR" in the last 72 hours. CARDIAC ENZYMES: No results for input(s): "TROPONINI" in the last 72 hours. Procalcitonin: No results found for: "PROCAL" COVID-19 PCR: No results for input(s): "COVID19" in the last 72 hours. Objective: Vitals: BP (!) 161/104 (BP Location: Left arm, Patient Position: Sitting) Pulse 85 Temp 36.4 C (97.5 F) (Temporal) Resp 16 Ht 5' 10" (1.778 m) Wt 174 lb 13.2 oz (79.3 kg) SpO2 100% BMI 25.08 kg/m Pulse Ox: SpO2 Av.7 % Min: 97 % Max: 100 % Supplemental O2: O2 Flow Rate (L/min): 2.5 L/min Physical Exam Vitals and nursing note reviewed. Constitutional: Appearance: Ill appearance: chronically. Comments: HENT: Head: Normocephalic and atraumatic. Nose: Nose normal. Mouth/Throat: Mouth: Mucous membranes are moist. Eyes: Extraocular Movements: Extraocular movements intact. Cardiovascular: Rate and Rhythm: Normal rate and regular rhythm. Pulmonary: Effort: Pulmonary effort is normal. No respiratory distress. Breath sounds: Decreased breath sounds present. Abdominal: General: Bowel sounds are normal. There is no distension. Tenderness: There is no abdominal tenderness. Musculoskeletal: General: Swelling (improved) present. No tenderness. Skin: General: Skin is warm and dry. Neurological: General: No focal deficit present. Mental Status: He is alert. Medications: Scheduled PRN Diclofenac Sodium, 4 g, Topical, BID folic acid, 1 mg, Oral, Daily levothyroxine, 75 mcg, Oral, qAM AC Lidocaine, 2 patch, TransDERmal, Daily losartan, 100 mg, Oral, Daily magnesium chloride, 1 tablet, Oral, Daily with breakfast magnesium sulfate, 2,000 mg, IntraVENous, Once miconazole, , Topical, BID nystatin, , Topical, BID potassium chloride CR, 40 mEq, Oral, BID sodium chloride, 1 g, Oral, BID WC tamsulosin, 0.4 mg, Oral, Daily thiamine, 100 mg, Oral, TID PRN medications: acetaminophen OR acetaminophen, calcium carbonate, diphenhydrAMINE, diphenhydrAMINE-zinc acetate, hydrOXYzine pamoate, labetalol, LORazepam, LORazepam, melatonin, nicotine polacrilex OR nicotine polacrilex, ondansetron ODT OR ondansetron, polyethylene glycol (PEG) 3350, promethazine OR promethazine OR promethazine, sodium chloride, stomahesive in petrolatum, tiZANidine Continuous Assessment Data: (CAT1) Reviewed 1 or more notes from different specialty or health system (each=1). (CAT1) Reviewed 3 or more labs/studies ordered by another provider not previously counted (each=1, panels count as 1). (CAT3) Mgmt of the patient was discussed with TCC - >plan for SNF , await acceptance/approval D/w RN regarding pt feeling depressed -> psychiatry c/s ordered (LOW: 2x CAT1 or independent historian MOD: 3x CAT1 or 1x CAT3 EXTENSIVE: 3x CAT1 and 1x CAT3) Acute, acute on chronic, unstable/uncontrolled chronic problems/diagnoses: ETOH withdrawal/severe alcohol dependence - phenobarb taper -> completed 01/19 - continue ativan prn - CIWA - thiamine, folate COVID -19 infection - completed remdesivir x 3 days - no hypoxia USD + opiates ( none given in ED and none prescribed on PDMP since 2022) Chronic pain - cont prn tylenol, voltaren gel, lido patches, prn tizanidine Abd pain/nausea/v/diarrhea - abd pain/n/v resolved - still occasional diarrhea/loose stools - appetite is poor , but improving --> encouraged ONS Dehydration Hyponatremia - acute on chronic - Na = 129 --> 133 -> 132 - no improvement with NS --> IVF discontinued 01/19 - tsh,slightly elevated, but t3/4 wnl - supplement mg PO to keep >2 - noted pt used to be on salt tabs --> resumed 01/20 - monitor Groin irritation - miconazole powder + nystatin cream 9.. Hypomagnesemia - Mg = 1.6 on 01/18 -> supplement PO - today Mg = 1.5 - > cont PO and give 2 g IV 10. Hypokalemia - replace PO x 2 to keep K >4 11. Pruritus - benadryl pnr 12. Leg edema - LE US : no DVT 13. Diarrhea - possibly covid related. Check c. diff Stable chronic problems affecting care, new non-acute diagnoses: Repeated falls Thrombocytopenia Anemia - b12, folate wnl in October 2023 Moderate malnutrition SHAYLA ( noncompliant with CPAP) Gout HCV - lft ok GERD BPH - resume flomax 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 - resume home levothyroxine Depression/anxiety - prn hydroxyzine . C/s psychiatry -->started mirtazapine. Appreciate input Chronic pain - lido patches , voltaren gel, prn tylenol HTN - at home on norvasc 2.5 and losartan 100 --> cont to hold norvasc ( leg edema) ; resumed losartan and monitor Plan As a result of the above findings & factors, the following mgmt was pursued: - as above - am labs, replace lytes prn - PT/OT/CM/SW - delirium precautions: increase activity and limit nighttime disturbances - DVT prophylaxis: SCDs and encourage ambulation Complexity: Acute illness with systemic symptoms (MOD). Risk: Prescription drug/IVF/colloid was initiated, discontinued, adjusted; or reviewed with decision to maintain current orders (MOD). Advance Directive: Full Code Anticipated Discharge - Date - tbd - Location -SNF - Pending the following - snf acceptance and precert Total time spent (which include face to face and non face to face encounters) : minutes Toxic drug monitoring/narrow therapeutic index drug monitoring : # Drug name : # Route administered : # Method of monitoring : Extended Emergency Contact Information Primary Emergency Contact: Kingsley Carl Relation: Significant Other Ethel Anna DO Division of Hospitalist Medicine Acute care [facility] Images from the original note were not included. OCCUPATIONAL THERAPY [facility] Initial Evaluation Name/MRN: Woody Ni ([id number]) Evaluation Date: 01/21/2024 Date of : 1960 Admission Date: 01/15/2024 10:30 AM Age: 63 y.o. Room/Bed: [facility] A Discharge Recommendation: Detention Facility Other: TBD next level therapy Assessment IMPRESSION: Patient is a 63 yo male admitted due to alcohol withdrawal syndrome and Covid-19. He is able to complete lower body ADLs with min assist and supervision for all other ADLs. The pt completes functional mobility at min assist level with increased time for balance. Mostly limited by impaired endurance and generalized weakness, and impaired balance. The pt is not safe to return home upon discharge and SNF level therapy is recommended. Performance Deficits /Impairments: Decreased Functional Mobility, Decreased ADL status, Decreased Strength, Decreased Safety Awareness, Decreased Cognition, Decreased Endurance, Decreased Balance, and Decreased High Level IADLs Prognosis: Good Decision Making: Low Complexity Subjective Pt seen sitting upright in chair and agreeable to therapy. Pain: Pt denies any current pain. 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 Nausea and vomiting 12/22/22-12/26/22 admitted at [facility] Pain management Sleep apnea noncompliant with device Past Surgical History: Past Surgical History: Procedure Laterality Date BACK SURGERY x 2 CHOLECYSTECTOMY LAMINECTOMY LAP,CHOLECYSTECTOMY (HISTORICAL) N/A 01/05/2023 WISDOM TOOTH EXTRACTION Admission Diagnosis: Patient Active Problem List Diagnosis Date Noted Other pancytopenia (CMS/HCC) (HCC) 01/20/2024 Alcohol withdrawal syndrome without complication (HCC) 01/15/2024 Moderate malnutrition (CMS/HCC) (HCC) 10/22/2023 Alcohol induced acute pancreatitis without necrosis or infection 10/20/2023 Recurrent falls 07/01/2023 Repeated falls 06/26/2023 Alcohol abuse 06/22/2023 Severe malnutrition (CMS/HCC) (HCC) 04/11/2023 Severe alcohol use disorder (HCC) 04/02/2023 Alcohol withdrawal syndrome with complication (HCC) 04/02/2023 Gallbladder sludge 01/05/2023 RUQ pain 01/05/2023 Acute on chronic cholecystitis 01/05/2023 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) 01/05/2023 Acute kidney injury (HCC) 12/22/2022 DENNYS (acute kidney injury) (HCC) 12/22/2022 Chronic pain syndrome 11/06/2022 Complication of surgical procedure 11/06/2022 Intercostal pain 11/06/2022 Low back pain 11/06/2022 Mild recurrent major depression (HCC) 11/06/2022 Myalgia 11/06/2022 Right hip pain 11/06/2022 Shoulder joint pain 11/06/2022 Intractable nausea and vomiting 06/05/2022 Hypovolemia 06/04/2022 Chronic alcoholic hepatitis 06/04/2022 Postural dizziness with presyncope 06/04/2022 Hyponatremia 06/03/2022 Osteoarthritis of spine with radiculopathy, lumbar region 03/12/2018 Essential hypertension 08/26/2017 Diabetes (HCC) 08/26/2017 Cirrhosis (HCC) 08/26/2017 Asthma 08/26/2017 Thyroid disease 08/26/2017 SHAYLA (obstructive sleep apnea) 08/26/2017 HLD (hyperlipidemia) 08/26/2017 Hepatitis 08/26/2017 Lumbar stenosis 06/10/2017 Medical Precautions: Droplet Plus Proper PPE donned/doffed in accordance with facility standards. Fall Risk: Maurice Fall Risk Score: 35 (Medium Risk) Precautions/Restrictions: Seizure Precautions Family/Caregiver Present: none Overall Cognitive Status: WFL Overall Orientation Status: Oriented x4 Social/Functional History Patient admitted from home. Lives With: Spouse Type of Home: single family home Home Layout: Two Level Home, ADLs on Main Level, and Able to Live on Main Level Home Access: Stairs to Enter with Rails (# of stairs: 2) Bathroom Shower/Tub: Pt reports he has not been able to shower in 18 months due to not being able to get into tub. Would eventually benefit from TTB and grab bars Toilet: Standard Home Equipment: cane Homemaking Responsibilities: Needs Assist Receives Help From: Spouse Active Environmental Field Office Manager: No Prior Level of Function ADL Assistance: Needs Assist Ambulation Assistance: Independent Device(s) used: cane Transfer Assistance: Independent Objective ADLs LE Dressing: Min Assist, Assist needed to thread R LE through pant holes. Toileting: SBA Upper Extremity Assessment AROM: WFL PROM: WNL Strength: WFL Vision: not assessed this session Hearing: normal Bed Mobility Not tested as pt sitting upright in chair upon OT arrival Transfers/Functional Mobility Sit to stand: Contact Guard Stand to sit: Contact Guard Toilet: Contact Guard Sitting balance: Independent Standing balance: Min Assist Functional mobility: Min Assist, Hand held assist with cane in opposite hand to steady balance for all functional mobility. Device(s) used: cane Hand dominance: Right AM-PAC Plan Pt would benefit from skilled acute OT services to address Strengthening, ROM, Balance Training, Functional Mobility Training, Endurance Training, Cognitive Reorientation, Pain Management, Safety Education and Training, Patient/Caregiver Training, Equipment Evaluation/Education, Positioning, Self-Care/ADL Training, and Home Management Training. Frequency: 2x/week for 4 weeks Barriers: None Prognosis: good Safety/Education Safety Safety Devices in place: All fall risk precautions in place, call light within reach, left in chair, chair alarm in place, gait belt, patient at risk for falls, and nurse notified Restraints: No Education Education Given To: patient Education Provided: OT Role, Plan of Care, and Discharge Recommendations Education Method: Verbal Barriers to Learning: None Education Outcome: Verbalized Understanding Goals Patient Stated Goal: To go to rehab Encounter Problems Encounter Problems (Active) Balance Patient will maintain dynamic standing balance for 6 minutes with modified independence in order to demonstrate decreased risk of falling. Start: 01/21/24 Expected End: 02/18/24 Bathing Patient will utilize adaptive techniques to bathe body with mod I Start: 01/21/24 Expected End: 02/18/24 Dressings Lower Extremities Patient will dress lower body with mod I Start: 01/21/24 Expected End: 02/18/24 Toileting Patient will complete toileting tasks at standard toilet with modified independence. Start: 01/21/24 Expected End: 02/18/24 Transfers Patient will complete functional transfer with straight cane with modified independence in order to prepare for ambulation. Start: 01/21/24 Expected End: 02/18/24 Therapy Time Individual Co-treatment Time In 1145 Time Out 1206 Minutes 21 Jefferson Mora OT Patient's Occupational Therapy Plan of Care supervision is transferred to a [facility] Services Occupational Therapist. Goals and/or treatment plan was established in collaboration with patient/family/other representatives. Images from the original note were not included. Hospitalist Progress Note 01/21/2024 Subjective: Admit Date: 01/15/2024 PCP: Jani Quezada Room#: [id number] A Chief Complaint Patient presents with Vomiting Withdrawal Alcohol BRIEF HOSPITAL COURSE: Pt with h/o alcoholism, anxiety/depression, HTN, hypothyroidism, SHAYLA, gout, HepC, liver cirrhosis, chronic pain , DM2, hyponatremia, ETOH induced pancreatitis Pt drinks 18 beer daily, last drink on 01/13 at 6 pm . Woke up in the morning with abdominal pain a/w N/V/Diarrhea and presented to [place] ED. In ED he was feeling tremulous like going through WD. Feeling better after antiemetics and lorazepam. Found to have COVID infection and unable to go to detox unit and was admitted to for further eval and management He completed 3 days remdesivir for severe disease ppx Interval History: Completed phenobarb taper yesterday . Has received ativan prn x 3 in the last 24 hrs Refused salt tab yesterday Appetite improving + loose stool this am Overall feeling better today. Notes itching. 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 Nausea and vomiting 12/22/22-12/26/22 admitted at [facility] Pain management Sleep apnea noncompliant with device LABS: CBC: Recent Labs 01/19/248 01/20/2437 01/21/24322 WBC 5.6 5.3 4.6 RBC 3.62* 3.66* 3.71* HGB 11.5* 11.7* 11.8* HCT 33.2* 33.2* 33.8* MCV 91.7 90.7 91.1 RDW 13.4 13.6 13.9 PLT 70* 79* 82* BMP: Recent Labs 01/19/248 01/20/2437 01/21/24 0323 NA 129* 129* 133* K 3.7 3.7 3.7 CL 100 98 104 CO2 20* 21* 22 BUN 14 8* 14 CREATININE 0.72 0.74 0.75 GLUCOSE 126* 100 101* CALCIUM 9.2 9.2 9.6 ANIONGAP 9 9 7 LIVER PROFILE: Recent Labs 01/19/24 0028 01/20/24 0537 01/21/24 0323 AST 27 38 33 ALT 16 21 22 BILITOT 0.5 0.5 0.5 ALKPHOS 56 58 56 PROT 6.9 7.0 7.1 PT/INR: No results for input(s): "PROTIME", "INR" in the last 72 hours. CARDIAC ENZYMES: No results for input(s): "TROPONINI" in the last 72 hours. Procalcitonin: No results found for: "PROCAL" COVID-19 PCR: No results for input(s): "COVID19" in the last 72 hours. Objective: Vitals: BP 158/91 (BP Location: Right arm, Patient Position: Sitting) Pulse 100 Temp 36.8 C (98.3 F) (Temporal) Resp 20 Ht 5' 10" (1.778 m) Wt 174 lb 13.2 oz (79.3 kg) SpO2 98% BMI 25.08 kg/m Pulse Ox: SpO2 Av.7 % Min: 98 % Max: 100 % Supplemental O2: O2 Flow Rate (L/min): 2.5 L/min Physical Exam Vitals and nursing note reviewed. Constitutional: Appearance: Ill appearance: chronically. Comments: Looks better today HENT: Head: Normocephalic and atraumatic. Nose: Nose normal. Mouth/Throat: Mouth: Mucous membranes are moist. Eyes: Extraocular Movements: Extraocular movements intact. Cardiovascular: Rate and Rhythm: Normal rate and regular rhythm. Pulmonary: Effort: Pulmonary effort is normal. No respiratory distress. Breath sounds: Decreased breath sounds present. Abdominal: General: Bowel sounds are normal. There is no distension. Tenderness: There is no abdominal tenderness. Musculoskeletal: General: Swelling (improved) present. No tenderness. Skin: General: Skin is warm and dry. Neurological: General: No focal deficit present. Mental Status: He is alert. Medications: Scheduled PRN Diclofenac Sodium, 4 g, Topical, BID diphenhydrAMINE, 50 mg, Oral, Once folic acid, 1 mg, Oral, Daily levothyroxine, 75 mcg, Oral, qAM AC Lidocaine, 2 patch, TransDERmal, Daily losartan, 100 mg, Oral, Daily magnesium chloride, 1 tablet, Oral, Daily with breakfast miconazole, , Topical, BID nystatin, , Topical, BID sodium chloride, 1 g, Oral, BID WC tamsulosin, 0.4 mg, Oral, Daily thiamine, 100 mg, Oral, TID PRN medications: acetaminophen OR acetaminophen, hydrOXYzine pamoate, labetalol, LORazepam, LORazepam, nicotine polacrilex OR nicotine polacrilex, ondansetron ODT OR ondansetron, polyethylene glycol (PEG) 3350, promethazine OR promethazine OR promethazine, sodium chloride, stomahesive in petrolatum, tiZANidine Continuous Assessment Data: (CAT1) Reviewed 1 or more notes from different specialty or health system (each=1). (CAT1) Reviewed 1 or more labs/studies ordered by another provider not previously counted (each=1, panels count as 1). Reviewed 1 tests ordered by myself (CAT3) Mgmt of the patient was discussed with TCC - >plan for SNF D/w RN regarding meds/pruritus (LOW: 2x CAT1 or independent historian MOD: 3x CAT1 or 1x CAT3 EXTENSIVE: 3x CAT1 and 1x CAT3) Acute, acute on chronic, unstable/uncontrolled chronic problems/diagnoses: ETOH withdrawal/severe alcohol dependence - phenobarb taper -> completed 01/19 - continue ativan prn - CIWA - thiamine, folate COVID -19 infection - completed remdesivir x 3 days - no hypoxia USD + opiates ( none given in ED and none prescribed on PDMP since 2022) Chronic pain - pt is asking for oxycodone " while he is here" - would like to avoid given addictive properties - cont prn tylenol, voltaren gel, lido patches, prn tizanidine Abd pain/nausea/v/diarrhea - abd pain/n/v resolved - still occasional diarrhea/loose stools - appetite is poor , but improving --> encouraged ONS Dehydration Hyponatremia - acute on chronic - Na = 129 --> 133 - no improvement with NS --> IVF discontinued 01/19 - tsh,slightly elevated, but t3/4 wnl - supplement mg PO to keep >2 - noted pt used to be on salt tabs --> resumed 01/19, however he didn't want to take - monitor Groin irritation - miconazole powder + nystatin cream 9.. Hypomagnesemia - Mg = 1.6 on 01/18 -> supplement PO 10. Leg edema - LE US : no DVT 11. Pruritus - benadryl pnr Stable chronic problems affecting care, new non-acute diagnoses: Repeated falls Thrombocytopenia Anemia - b12, folate wnl in October 2023 Moderate malnutrition SHAYLA ( noncompliant with CPAP) Gout HCV - lft ok GERD BPH - resume flomax 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 - resume home levothyroxine Depression/anxiety - resume hydroxyzine Chronic pain - lido patches , voltaren gel, prn tylenol HTN - at home on norvasc 2.5 and losartan 100 --> cont to hold norvasc ( leg edema) ; resumed losartan and monitor Plan As a result of the above findings & factors, the following mgmt was pursued: - as above - am labs, replace lytes prn - PT/OT/CM/SW - delirium precautions: increase activity and limit nighttime disturbances - DVT prophylaxis: SCDs and encourage ambulation Complexity: Acute illness with systemic symptoms (MOD). Risk: Prescription drug/IVF/colloid was initiated, discontinued, adjusted; or reviewed with decision to maintain current orders (MOD). Advance Directive: Full Code Anticipated Discharge - Date - tbd - Location -SNF - Pending the following - snf acceptance and precert Total time spent (which include face to face and non face to face encounters) : minutes Toxic drug monitoring/narrow therapeutic index drug monitoring : # Drug name : # Route administered : # Method of monitoring : Extended Emergency Contact Information Primary Emergency Contact: Kingsley Carl Relation: Significant Other Ethel Anna DO Division of Hospitalist Medicine [facility] Images from the original note were not included. Addiction Team Progress Note January,. 2024 WednesDAY ACTIVE PROBLEMS: Alcohol Dependence Alcohol Withdrawal COVID infection (isolation/remdisivir) Remains in isolation; Per attending RN, he's less irritable than yesterday; extending phenobarb for w/d seemed to help. Visited with pt in person today while wearing PPE Alert, fully oriented & coherent; Pleasant mood with congenial affect; Withdrawal; NO symptoms evident upon assessing; CIWA score this am: 9 (tremor/Headache/anxiety); Has not been threatening AMA dischsrge LAST scheduled dose of phenobarb 16mg received this am; 3 doses PRN ativan in 24 hrs. Addiction Did not discuss at this time due to OT/PT needs; Provided him with packet of information on : 1) area treatment options; 2) anticraving medications; 3) AA Meeting Schedule 4) [facility] Per notes, PT is recommending SKNF transition due to debility EXAM: Disheveled but overall appearing much better; NO tremors or Diaphoresis noted Debilitated / walker dependent NO janudice evident NO tachycardia; minor elevations in BP readings Afebrile Na remains low at 129; Platelet level at 79 Plan: No further phenobarbital PRN ativan to 0.5mg q 8 hrs/withdrawal Hopefully, he'll be accepted at a nursing facility that has Addiction Treatment as part of their offerings. Has packet of resources as noted above. Will sign off but be available for any further help needed. Mona Eckert APRN Images from the original note were not included. Hospitalist Progress Note 01/20/2024 Subjective: Admit Date: 01/15/2024 PCP: Jani Quezada Room#: [id number] A Chief Complaint Patient presents with Vomiting Withdrawal Alcohol BRIEF HOSPITAL COURSE: Pt with h/o alcoholism, anxiety/depression, HTN, hypothyroidism, SHAYLA, gout, HepC, liver cirrhosis, chronic pain , DM2, hyponatremia, ETOH induced pancreatitis Pt drinks 18 beer daily, last drink on 01/13 at 6 pm . Woke up in the morning with abdominal pain a/w N/V/Diarrhea and presented to [place] ED. In ED he was feeling tremulous like going through WD. Feeling better after antiemetics and lorazepam. Found to have COVID infection and unable to go to detox unit and was admitted to for further eval and management He completed 3 days remdesivir for severe disease ppx Interval History: Today pt reports feeling a little better. Phenobarb taper was extended yesterday and he found it helpful Reports ongoing aches all over and asking if he can have oxycodone for it Appetite remains poor He has ensure supplements piled on the table. Says he has not been drinking them because of difficulty opening the seal. Helped him to open and he finished one bottle quickly --> broke the plastic seal of 2 more bottles and encouraged him to drink to improve his nutrition status Reports multiple Bms today No overnight issues. Case and plan discussed with patient and bedside nurse. All questions answered. 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 Nausea and vomiting 12/22/22-12/26/22 admitted at [facility] Pain management Sleep apnea noncompliant with device LABS: CBC: Recent Labs 01/18/24 0620 01/19/24 0028 01/20/24 0537 WBC 5.3 5.6 5.3 RBC 3.81* 3.62* 3.66* HGB 12.1* 11.5* 11.7* HCT 34.3* 33.2* 33.2* MCV 90.0 91.7 90.7 RDW 13.5 13.4 13.6 PLT 62* 70* 79* BMP: Recent Labs 01/18/24 0620 01/19/24 0028 01/20/24 0537 NA 132* 129* 129* K 3.6 3.7 3.7 CL 101 100 98 CO2 22 20* 21* BUN 14 14 8* CREATININE 0.70 0.72 0.74 GLUCOSE 123* 126* 100 CALCIUM 9.0 9.2 9.2 ANIONGAP 9 9 9 LIVER PROFILE: Recent Labs 01/18/24 0620 01/19/24 0028 01/20/24 0537 AST 26 27 38 ALT 16 16 21 BILITOT 0.7 0.5 0.5 ALKPHOS 59 56 58 PROT 6.9 6.9 7.0 PT/INR: No results for input(s): "PROTIME", "INR" in the last 72 hours. CARDIAC ENZYMES: No results for input(s): "TROPONINI" in the last 72 hours. Procalcitonin: No results found for: "PROCAL" COVID-19 PCR: No results for input(s): "COVID19" in the last 72 hours. Objective: Vitals: BP 150/95 (BP Location: Left arm, Patient Position: Sitting) Pulse 82 Temp 36.6 C (97.9 F) (Temporal) Resp 16 Ht 5' 10" (1.778 m) Wt 174 lb 13.2 oz (79.3 kg) SpO2 97% BMI 25.08 kg/m Pulse Ox: SpO2 Av.5 % Min: 97 % Max: 98 % Supplemental O2: O2 Flow Rate (L/min): 2.5 L/min Physical Exam Vitals and nursing note reviewed. Constitutional: Appearance: Ill appearance: chronically. HENT: Head: Normocephalic and atraumatic. Nose: Nose normal. Mouth/Throat: Mouth: Mucous membranes are moist. Eyes: Extraocular Movements: Extraocular movements intact. Cardiovascular: Rate and Rhythm: Normal rate and regular rhythm. Pulmonary: Effort: Pulmonary effort is normal. No respiratory distress. Breath sounds: Decreased breath sounds present. Abdominal: General: Bowel sounds are normal. There is no distension. Tenderness: There is no abdominal tenderness. Musculoskeletal: General: Swelling present. No tenderness. Skin: General: Skin is warm and dry. Neurological: General: No focal deficit present. Mental Status: He is alert. Medications: Scheduled PRN Diclofenac Sodium, 4 g, Topical, BID folic acid, 1 mg, Oral, Daily Lidocaine, 2 patch, TransDERmal, Daily magnesium chloride, 1 tablet, Oral, Daily with breakfast miconazole, , Topical, BID nystatin, , Topical, BID thiamine, 100 mg, Oral, TID PRN medications: acetaminophen OR acetaminophen, labetalol, LORazepam, LORazepam, nicotine polacrilex OR nicotine polacrilex, ondansetron ODT OR ondansetron, polyethylene glycol (PEG) 3350, promethazine OR promethazine OR promethazine, sodium chloride, stomahesive in petrolatum Continuous sodium chloride, 100 mL/hr, Last Rate: 100 mL/hr (01/19/24 2306) Assessment Data: (CAT1) Reviewed 2 or more notes from different specialty or health system (each=1). (CAT1) Reviewed 2 or more labs/studies ordered by another provider not previously counted (each=1, panels count as 1). (CAT3) Mgmt of the patient was discussed with TCC - > possibly SNF with ETOH rehab support capabilities pending acceptance/precert (LOW: 2x CAT1 or independent historian MOD: 3x CAT1 or 1x CAT3 EXTENSIVE: 3x CAT1 and 1x CAT3) Acute, acute on chronic, unstable/uncontrolled chronic problems/diagnoses: ETOH withdrawal/severe alcohol dependence - phenobarb taper -> completed today - continue ativan prn - CIWA - thiamine, folate COVID -19 infection - completed remdesivir x 3 days - no hypoxia USD + opiates ( none given in ED and none prescribed on PDMP since 2022) Chronic pain - pt is asking for oxycodone " while he is here" - would like to avoid given addictive properties - prn tylenol, voltaren gel, lido patches - add prn tizanidine Abd pain/nausea/v/diarrhea - resolved - appetite is poor --> encouraged ONS Dehydration Hyponatremia - acute on chronic - Na = 129 today - NS @ 100 ml/hr with no improvement in NA --> stop at this time - tsh,slightly elevated, but t3/4 wnl - supplement mg PO to keep >2 - noted pt used to be on salt tabs --> resume and monitor Groin irritation - miconazole powder + nystatin cream 9.. Hypomagnesemia - Mg = 1.6 on 01/18 -> supplement PO 10. Leg edema - check LE US Stable chronic problems affecting care, new non-acute diagnoses: Repeated falls Thrombocytopenia Anemia - b12, folate wnl in October 2023 Moderate malnutrition SHAYLA ( noncompliant with CPAP) Gout HCV - lft ok GERD BPH - resume flomax 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 - resume home levothyroxine Depression/anxiety - resume hydroxyzine Chronic pain - lido patches , voltaren gel, prn tylenol HTN - at home on norvasc 2.5 and losartan 100 --> cont to hold losartan ( leg edema) ; resume losartan and monitor Plan As a result of the above findings & factors, the following mgmt was pursued: - as above - am labs, replace lytes prn - PT/OT/CM/SW - delirium precautions: increase activity and limit nighttime disturbances - DVT prophylaxis: SCDs and encourage ambulation Complexity: Acute illness or injury posing a threat to life or body function (HIGH). Risk: Use/consideration of therapy requiring intensive monitoring: medical management EtOH withdrawal (seizures, autonomic hyperactivity, electrolyte derangements, delirium tremens, ); telemetry, BMP, +/- phenobarb levels (HIGH). Advance Directive: Full Code Anticipated Discharge - Date - tbd - Location - Home vs SNF - Pending the following - hyponatremia improvement ; snf acceptance and precert Total time spent (which include face to face and non face to face encounters) : minutes Toxic drug monitoring/narrow therapeutic index drug monitoring : # Drug name : # Route administered : # Method of monitoring : Extended Emergency Contact Information Primary Emergency Contact: Kingsley Carl Relation: Significant Other Ethel Anna DO Division of Hospitalist Medicine [facility] Images from the original note were not included. PHYSICAL THERAPY [facility] Initial Evaluation Name/MRN: Woody Ni ([id number]) Evaluation Date: 01/20/2024 Date of : 1960 Admission Date: 01/15/2024 10:30 AM Age: 63 y.o. Room/Bed: [id number] A Discharge Recommendation: Detention Facility Equipment Needed: (TBD) Assessment IMPRESSION: Patient is a 63 yo male admitted due to alcohol withdrawal syndrome and Covid-19. He is most limited by general weakness and impaired standing balance. He performed bed mobility with SBA and transfers with CGA. He ambulated short distances using straight cane vs no device with min A due to unsteadiness, tends to reach for lujan/furniture for stability. Patient is not safe to return home, recommend SNF level therapies at discharge. Diagnosis: alcohol withdrawal syndrome and Covid-19 Prognosis: good Performance Deficits /Impairments: Increased Pain, Decreased Functional Mobility, Decreased ADL status, Decreased Strength, Decreased Endurance, Decreased Balance, and Decreased Coordination Decision Making: Medium Complexity Subjective RN cleared patient for PT eval. Patient awake in bed, agreeable to therapy. 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 Nausea and vomiting 12/22/22-12/26/22 admitted at [facility] Pain management Sleep apnea noncompliant with device Past Surgical History: Past Surgical History: Procedure Laterality Date BACK SURGERY x 2 CHOLECYSTECTOMY LAMINECTOMY LAP,CHOLECYSTECTOMY (HISTORICAL) N/A 01/05/2023 WISDOM TOOTH EXTRACTION Admission Diagnosis: Patient Active Problem List Diagnosis Date Noted Alcohol withdrawal syndrome without complication (HCC) 01/15/2024 Moderate malnutrition (CMS/HCC) (HCC) 10/22/2023 Alcohol induced acute pancreatitis without necrosis or infection 10/20/2023 Recurrent falls 07/01/2023 Repeated falls 06/26/2023 Alcohol abuse 06/22/2023 Severe malnutrition (CMS/HCC) (HCC) 04/11/2023 Severe alcohol use disorder (HCC) 04/02/2023 Alcohol withdrawal syndrome with complication (HCC) 04/02/2023 Gallbladder sludge 01/05/2023 RUQ pain 01/05/2023 Acute on chronic cholecystitis 01/05/2023 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) 01/05/2023 Acute kidney injury (HCC) 12/22/2022 DENNYS (acute kidney injury) (HCC) 12/22/2022 Chronic pain syndrome 11/06/2022 Complication of surgical procedure 11/06/2022 Intercostal pain 11/06/2022 Low back pain 11/06/2022 Mild recurrent major depression (HCC) 11/06/2022 Myalgia 11/06/2022 Right hip pain 11/06/2022 Shoulder joint pain 11/06/2022 Intractable nausea and vomiting 06/05/2022 Hypovolemia 06/04/2022 Chronic alcoholic hepatitis 06/04/2022 Postural dizziness with presyncope 06/04/2022 Hyponatremia 06/03/2022 Osteoarthritis of spine with radiculopathy, lumbar region 03/12/2018 Essential hypertension 08/26/2017 Diabetes (HCC) 08/26/2017 Cirrhosis (HCC) 08/26/2017 Asthma 08/26/2017 Thyroid disease 08/26/2017 SHAYLA (obstructive sleep apnea) 08/26/2017 HLD (hyperlipidemia) 08/26/2017 Hepatitis 08/26/2017 Lumbar stenosis 06/10/2017 Medical Precautions: Droplet Plus Proper PPE donned/doffed in accordance with facility standards. Fall Risk: Maurice Fall Risk Score: 45 (High Risk) Precautions/Restrictions: Seizure Precautions Lines/Drains/Airways: PIV Skin care precautions, fall precautions Family/Caregiver Present: none Overall Cognitive Status: WFL Overall Orientation Status: Oriented x4 Hearing: normal Social/Functional History Patient admitted from home. Lives With: Spouse Type of Home: single family home Home Layout: Two Level Home, ADLs on Main Level, and Able to Live on Main Level Home Access: Stairs to Enter with Rails (# of stairs: 2) Bathroom Shower/Tub: Toilet: Home Equipment: cane Homemaking Responsibilities: Needs Assist Receives Help From: Spouse Active Environmental Field Office Manager: No Prior Level of Function ADL Assistance: Independent Ambulation Assistance: Independent Device(s) used: cane Transfer Assistance: Independent Reports his works "all the time," does not have other assistance available. Objective Lower Extremity Assessment AROM: WFL PROM: WFL Strength: WFL (BLE at least 3+/5 based on functional observation) Bed Mobility: Supine to sit: SBA Scooting: SBA Transfers Sit to stand: Contact Guard Stand to sit: Contact Guard From EOB x2 reps, slow velocity, unsteady Ambulation Ambulation 1 Assistive device(s) used: none Assist level: Min Assist Distance (ft): 15 Quality of gait: step to pattern, wide JM, slow heide, instability through all phases, tends to reach for lujan/furniture for stability, easily fatigued Ambulation 2 Assistive device(s) used: cane Assist level: Min Assist Distance (ft): 15 Quality of gait: step to pattern, wide JM, slow heide, instability through all phases, tends to reach for lujan/furniture for stability, easily fatigued Tremors: yes (noted intention tremors BUE) Outcome Measures AM-PAC How much HELP from another person do you currently need Turning from your back to your side while in a flat bed without using bedrails?: None Moving from lying on your back to sitting on the side of a flat bed without using bedrails?: None Moving to and from a bed to a chair (including a wheelchair)?: A Little Standing up from a chair using your arms (wheelchair or bedside chair)?: A Little Walking in a hospital room?: A Little Stair climbing assessed?: No AM-PAC Inpatient Mobility Raw Score (No Stairs) : 17 [facility] Score: Walked 25 ft or more (i.e. walked outside of room) Plan Pt would benefit from skilled acute PT services to address Strengthening, Balance Training, Functional Mobility Training, Endurance Training, Gait Training, Neuromuscular Re-Education Training, Safety Education and Training, Patient/Caregiver Training, Equipment Evaluation/Education, and HEP . Frequency: 2x/week 3 weeks Barriers: Pain, Limited family support, Decreased endurance, Medical complications, and Stairs at home Safety/Education Safety Safety Devices in place: call light within reach, left in chair, gait belt, patient at risk for falls, nurse notified, and no alarms engaged upon entry Restraints: No Education Education Given To: patient Education Provided: PT Role, PT Goals, Plan of Care, Discharge Recommendations, and Benefits of Increasing Activity Education Method: Verbal Barriers to Learning: None Education Outcome: Verbalized Understanding Goals Patient Stated Goal: To get better, I just need help Encounter Problems Encounter Problems (Active) Mobility Patient will ambulate 300 feet with modified independence and least restrictive device in order to improve safety and independence with mobility. Start: 01/20/24 Expected End: 02/10/24 Transfers Patient will perform bed mobility with modified independence in order to improve independence and prepare for out of bed mobility. Start: 01/20/24 Expected End: 02/10/24 Patient will complete functional transfer with least restrictive device with modified independence in order to prepare for ambulation. Start: 01/20/24 Expected End: 02/10/24 Therapy Time Individual Co-treatment Time In 1054 Time Out 1108 Minutes 14 Ida Case PT Patient's Physical Therapy Plan of Care supervision is transferred to a [facility] Therapy Services Physical Therapist. Goals and/or treatment plan was established in collaboration with patient/family/other representatives. This provider wore appropriate PPE throughout session per facility guidelines. Images from the original note were not included. Addiction Team Progress Note January,. 2023 ACTIVE PROBLEMS: Alcohol Dependence Alcohol Withdrawal COVID infection (isolation/remdisivir) Remains in isolation; Encounter completed per: >Collaborating with attending RN >Chart review >Phone discussion with patient; >Phone discussion with family member (per pt request) RN tells me he's more agitated and wanting to leave AMA (Notes: this is a repeating pattern) Chart review shows LOW platelet level (70) Phenobarb taper placed by primary team completed last ; He continues to receive PRN ativan Course of Remdisivir completed. VS reflect modest elevations in HR and BP readings. LABS show acute drop in Na (129) Following admission in October, noted transition to Detention Facility ([facility]) Patient phone call: fully oriented/coherent; irritable saying he wants to leave hospital as he no longer is getting phenobarb and has to wait for PRN ativan. He agrees to remain in hospital for continuation of phenobarbital taper. He has no plans for what he'll do when he returns home. He tells me he called his neighbor (as we discussed yesterday), advising that he NOT deliver beer to him. We discussed option of [facility] program which his son completed, HOWEVER (per family), he's not eligible as he was not "honorably" discharged from [employer]. Family/Friend discussion: Friend, Kingsley, talked with me; she reports that even if neighbor sincerely commits to not bringing beer, it would not last. PLAN Taper PRN ativan to 1mg q 8 hrs Extend Luminal taper to 16mg tid x 3; then stop Recommend PT/OT evaluation for recommendations on disposition: If assisted facility is recommended due to debility: one that offers CHEMDEP treatment as part of their program may be his best option towards Recovery (ie: [facility] or [facility]) Will follow thru tomorrow and provide list of viable treatment options for RECOVERY Nutrition Assessment Type and Reason for Visit: Reassess Nutrition Recommendations/Plan: Continue diet as ordered Encourage PO intake Continue ONS RD will monitor PO intake, weight, labs, overall nutrition status and will follow weekly Malnutrition Assessment: Malnutrition Status: At risk for malnutrition (Comment) Context: Acute Illness Findings of the 6 clinical characteristics of malnutrition: Energy Intake: Mild decrease in energy intake (Comment) (poor intake during admission, ? meeting energy needs with etoh intake prior to admission) Weight Loss: No significant weight loss (per weight hx) Body Fat Loss: Unable to assess (COVID isolation) Muscle Mass Loss: Unable to assess (COVID isolation) Fluid Accumulation: No significant fluid accumulation (per flowsheet) Sterilisation Technician Strength: Normal health outcomes liaison strength Nutrition Assessment: Pt with PMH including alcoholism, cirrhosis, HTN, DM, hepatitis C, hypothyroidism, gout, chronic back pain, SHAYLA, depression, falls, debility, presented to [facility] ED on 01/15/24 with N/V/D and abdominal pain present upon awakening. Pt reported that he drinks 18 beers daily, feeling tremulous like going through withdrawals. Symptoms improved with lorazepam + antiemetics + phenobarb; found to have COVID infection. He requests admission for detox, however due to isolation status cannot not go to detox unit. He remains in droplet plus isolation. RD called into pt room for interview. He reports continued poor intake at meals, is ordering three meals daily but reports minimal intake. He is documented with PO intake for three meals: one with >50% consumed and two with >75 % consumed. Pt states he has missed some Ensure but is generally consuming them completely and reports "they're helping." He also reports nausea and vomiting "every now and again" however denies further needs, reporting plan for discharge today ("they're kicking me out today"). Estimated Daily Nutrient Needs: Energy Requirements Based On: Kcal/kg Weight Used for Energy Requirements: [place] Weight for Energy Calculation (kg): 75 kg Total Energy Requirements (kcals/day): 27 kcal/kg = 2024 kcal/day Weight Used for Protein Requirements: [place] Weight in Kg Used for Protein Requirements: 75 kg Estimated Total Protein (g/day): 1.1 g/kg = 83 g/day Estimated Daily Total Fluid (ml/day): per MD Nutrition Related Findings: Lives with: Spouse/significant other, Children Room Service Room Service: Selective Pranav Scale Score: 20 .Wound Type: None Net IO Since Admission: 688 mL [01/19/24 1400] Edema: none Bowel Sounds (All Quadrants): Active Abdomen Inspection: Soft, Nondistended Last BM Date: 01/18/24 Labs and meds reviewed: folic acid, 1 mg, Oral, Daily Lidocaine, 2 patch, TransDERmal, Daily magnesium chloride, 1 tablet, Oral, Daily with breakfast miconazole, , Topical, BID nystatin, , Topical, BID thiamine, 100 mg, Oral, TID sodium chloride, 100 mL/hr, Last Rate: 100 mL/hr (01/19/24 1311) BMP: Recent Labs 01/17/24 0053 01/18/24 0620 01/19/24 0028 NA 134* 132* 129* K 3.4* 3.6 3.7 CL 100 101 100 CO2 22 22 20* BUN 12 14 14 CREATININE 0.79 0.70 0.72 GLUCOSE 111* 123* 126* CALCIUM 8.9 9.0 9.2 MG 1.3* 1.8 1.6 Lab Results Component Value Date HGBA1C 4.7 04/02/2023 Current Nutrition Therapies: Adult diet Regular; GI Catron (GERD/Peptic Ulcer) Current Oral Intake Average Meal Intake: 76-100% Average Supplements Intake: 51-75% Anthropometric Measures: Height: 177.8 cm (5' 10") Current Body Weight: 79.3 kg (174 lb 13.2 oz) (01/17) Admission Body Weight: 79.3 kg (174 lb 13.2 oz) ([facility] 01/14) Usual Body Weight: (171# on 02/11/23, 172# on 04/11/23, 160# on 10/22/23) [place] Body Weight (lbs) (Calculated): 166 lbs [place] Body Weight (Kg) (Calculated): 75 kg % [place] Body Weight (Calculated): 105.3 % BMI (kg/m2) (Calculated): 25.1 Weight Adjustment For: No Adjustment BMI Categories: Overweight (BMI 25.0-29.9) Wt Readings from Last 10 Encounters: 01/18/24 79.3 kg (174 lb 13.2 oz) 10/21/23 72.6 kg (160 lb) 06/22/23 74.8 kg (165 lb) 04/10/23 72.6 kg (160 lb) 03/10/23 78 kg (172 lb) 02/13/23 82.6 kg (182 lb 3.2 oz) 01/28/23 80.3 kg (177 lb) 01/09/23 83.9 kg (185 lb) 01/05/23 83 kg (183 lb) 12/29/22 83.3 kg (183 lb 11.2 oz) Nutrition Diagnosis: Inadequate protein-energy intake related to catabolic illness, altered GI function as evidenced by vomiting, nausea (reported poor intake, increased needs related to COVID infection) Nutrition Interventions: Food and/or Nutrient Delivery: Continue Current Diet, Continue Oral Nutrition Supplement Nutrition Education/Counseling: No recommendation at this time Coordination of Nutrition Care: Continue to monitor while inpatient Goals: Goals: PO intake 75% or greater, by next RD assessment Nutrition Monitoring and Evaluation: Behavioral-Environmental Outcomes: None Identified Food/Nutrient Intake Outcomes: Food and Nutrient Intake, Supplement Intake Physical Signs/Symptoms Outcomes: Biochemical Data, Nutrition Focused Physical Findings, Skin, Weight, Diarrhea, GI Status, Nausea or Vomiting, Fluid Status or Edema, Hemodynamic Status, Meal Time Behavior Discharge Planning: Too soon to determine Sloane Lyons RD, LD Contact: *[phone] or via Tradyo chat Wound Care consulted for Pressure Injury Prevention. Pt's Pranav score= 18 on 01/15, Pranav now=20 Skin Care precaution order set in place. Spoilage Worker consult in place. PT consult N/A, subscores=3. Will continue to follow pt. Please Voicera for any questions or concerns. Gina Sarmiento RN, CWCN Images from the original note were not included. Hospitalist Progress Note 01/19/2024 Subjective: Admit Date: 01/15/2024 PCP: Jani Quezada Room#: [id number] A Chief Complaint Patient presents with Vomiting Withdrawal Alcohol BRIEF HOSPITAL COURSE: Pt with h/o alcoholism, anxiety/depression, HTN, hypothyroidism, SHAYLA, gout, HepC, liver cirrhosis, chronic pain , DM2, hyponatremia, ETOH induced pancreatitis Pt drinks 18 beer daily, last drink on 01/13 at 6 pm . Woke up in the morning with abdominal pain a/w N/V/Diarrhea and presented to [place] ED. In ED he was feeling tremulous like going through WD. Feeling better after antiemetics and lorazepam. Found to have COVID infection and unable to go to detox unit and was admitted to for further eval and management He completed 3 days remdesivir for severe disease ppx Interval History: This am pt was agitated, wanting to go home On my evaluation pt reports he is having aches and pains all over, congestion in his L ear Says he is drinking alcohol to help with his pain Na is down to 129 today. Says he has not been eating for the last couple days because he has not had zofran and is afraid his nausea would flair up No overnight issues. Case and plan discussed with patient and bedside nurse. All questions answered. 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 Nausea and vomiting 12/22/22-12/26/22 admitted at [facility] Pain management Sleep apnea noncompliant with device LABS: CBC: Recent Labs 01/17/245201/18/2461901/19/24 0028 WBC 4.1 5.3 5.6 RBC 3.69* 3.81* 3.62* HGB 11.8* 12.1* 11.5* HCT 33.3* 34.3* 33.2* MCV 90.2 90.0 91.7 RDW 13.2 13.5 13.4 PLT 52* 62* 70* BMP: Recent Labs 01/17/245201/18/2461901/19/24 0028 NA 134* 132* 129* K 3.4* 3.6 3.7 CL 100 101 100 CO2 22 22 20* BUN 12 14 14 CREATININE 0.79 0.70 0.72 GLUCOSE 111* 123* 126* CALCIUM 8.9 9.0 9.2 ANIONGAP 11 9 9 LIVER PROFILE: Recent Labs 01/17/245201/18/2461901/19/2427 AST 33 26 27 ALT 19 16 16 BILITOT 0.8 0.7 0.5 ALKPHOS 64 59 56 PROT 6.8 6.9 6.9 PT/INR: No results for input(s): "PROTIME", "INR" in the last 72 hours. CARDIAC ENZYMES: No results for input(s): "TROPONINI" in the last 72 hours. Procalcitonin: No results found for: "PROCAL" COVID-19 PCR: No results for input(s): "COVID19" in the last 72 hours. Objective: Vitals: BP (!) 159/101 (BP Location: Left arm, Patient Position: Lying) Pulse 98 Temp 36.7 C (98 F) (Temporal) Resp 16 Ht 5' 10" (1.778 m) Wt 174 lb 13.2 oz (79.3 kg) SpO2 98% BMI 25.08 kg/m Pulse Ox: SpO2 Av.8 % Min: 97 % Max: 98 % Supplemental O2: O2 Flow Rate (L/min): 2.5 L/min Physical Exam Vitals and nursing note reviewed. Constitutional: Appearance: Ill appearance: chronically. HENT: Head: Normocephalic and atraumatic. Right Ear: There is impacted cerumen. Nose: Nose normal. Mouth/Throat: Mouth: Mucous membranes are moist. Eyes: Extraocular Movements: Extraocular movements intact. Cardiovascular: Rate and Rhythm: Normal rate and regular rhythm. Pulmonary: Effort: Pulmonary effort is normal. No respiratory distress. Breath sounds: Decreased breath sounds present. Abdominal: General: Bowel sounds are normal. There is no distension. Tenderness: There is no abdominal tenderness. Musculoskeletal: General: No swelling or tenderness. Skin: General: Skin is warm and dry. Neurological: General: No focal deficit present. Mental Status: He is alert. Medications: Scheduled PRN folic acid, 1 mg, Oral, Daily miconazole, , Topical, BID nystatin, , Topical, BID thiamine, 100 mg, Oral, TID PRN medications: acetaminophen OR acetaminophen, labetalol, LORazepam, LORazepam, nicotine polacrilex OR nicotine polacrilex, ondansetron ODT OR ondansetron, polyethylene glycol (PEG) 3350, sodium chloride, stomahesive in petrolatum Continuous Assessment Data: (CAT1) Reviewed 3 or more notes from different specialty or health system (each=1). (CAT1) Reviewed 3 or more labs/studies ordered by another provider not previously counted (each=1, panels count as 1). (CAT3) Mgmt of the patient was discussed with TCC, plan to DC home when ready (LOW: 2x CAT1 or independent historian MOD: 3x CAT1 or 1x CAT3 EXTENSIVE: 3x CAT1 and 1x CAT3) Acute, acute on chronic, unstable/uncontrolled chronic problems/diagnoses: ETOH withdrawal/severe alcohol dependence - phenobarb taper -> completed - ativan prn - CIWA - thiamine, folate COVID -19 infection - completed remdesivir x 3 days - no hypoxia USD + opiates ( none given in ED and none prescribed on PDMP since 2022) Abd pain/nausea/v/diarrhea - resolved Dehydration Hyponatremia - acute on chronic - Na = 129 today - start NS @ 100 ml/hr and monitor - check tsh, mg Groin irritation - miconazole powder + nystatin cream 8. Hypomagnesemia - replaced, recheck Mg = 1.6 -> supplement PO Stable chronic problems affecting care, new non-acute diagnoses: Repeated falls Thrombocytopenia Anemia Moderate malnutrition SHAYLA ( noncompliant with CPAP) Gout HCV - lft ok GERD BPH 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 Depression/anxiety Chronic pain - lido patches , voltaren gel, prn tylenol Plan As a result of the above findings & factors, the following mgmt was pursued: - as above - am labs, replace lytes prn - PT/OT/CM/SW - delirium precautions: increase activity and limit nighttime disturbances - DVT prophylaxis: SCDs and encourage ambulation Complexity: Acute illness or injury posing a threat to life or body function (HIGH). Risk: Use/consideration of therapy requiring intensive monitoring: medical management EtOH withdrawal (seizures, autonomic hyperactivity, electrolyte derangements, delirium tremens, ); telemetry, BMP, +/- phenobarb levels (HIGH). Advance Directive: Full Code Anticipated Discharge - Date - 01/20/24 - Location - Home - Pending the following - hyponatremia improvement Total time spent (which include face to face and non face to face encounters) : minutes Toxic drug monitoring/narrow therapeutic index drug monitoring : # Drug name : # Route administered : # Method of monitoring : Extended Emergency Contact Information Primary Emergency Contact: Kingsley Carl Relation: Significant Other Ethel Anna DO Division of Hospitalist Medicine [facility] Addiction Team Progress Note January, ACTIVE PROBLEMS: Alcohol Dependence Alcohol Withdrawal COVID infection (isolation/remdisivir) Remains isolated, on remdisivir. In effort to diminish chance of transmitting virus and to preserve equipment, encounter conducted via chart note review: FIDENCIO britt; talking with attending RN, talking with Woody via room phone. RN reports that he seems in no acute distress; no overt s/s of withdrawal In talking with Woody, he sounds weak, lethargic; coughing frequently. Endorses feeling " about the same" as yesterday, maybe a "little better" Tells me headaches (?COVID) continue. Withdrawal VS readings show mild tachycardia and intermittent hypertensive readings Labs show drop in Na (132); LFTs/bili nml. PLTS low: (52) Luminal has been tapering (per primary team): 32mg q 8 today 3 doses PRN ativan 2mg in past 24 hrs. Addiction Issues: We talked at length about his inability to refrain/stop alcohol consumption. Says he wants to stop and continued to use the word :"try" when discussing what he may do. Tells me beer is "delivered" to him by his neighbor. He agrees to call neighbor to tell him he wants to stop drinking, Tells me that alcoholism has controlled his life; that he can hardly walk. Would like to enter a [facility] but debility poses a challenge. PLAN Luminal tapering per primary team Continue PRN ativan, HOWEVER, will taper to 1mg PRN q 8hrs. Continue thiamine Will follow and discuss available options for treatment in consideration of physical limitations.: IF pt/ot recommend a skilled facility, one that has addiction treatment as part of their program may be a viable option. Mona Eckert APRN Images from the original note were not included. Hospitalist Progress Note 01/18/2024 Subjective: Admit Date: 01/15/2024 PCP: Jani Quezada Room#: [id number] A Brief Hospital course: Woody is a 63 y.o. male with past medical history below who presents with chief complaint of abdominal pain associated with nausea, vomiting, diarrhea. Patient initially presented to [facility] ED with N/V/D with abdominal pain. Reports that he drinks 18 beers daily, went to bed after last drink at 1800 on 01/13, symptoms present upon awakening. Feeling tremulous like going through withdrawals. History of EtOH-related pancreatitis, however lipase normal and symptoms improved with lorazepam + antiemetics + phenobarb; found to have COVID infection, due to isolation status cannot not go to detox unit. Will admit for further evaluation and management. On arrival to floor reports still having some loose stools, but nausea and abdominal pain have completely resolved. Addiction medicine following, on phenobarbital taper Interval History: 01/18/2024-No overnight issues. Patient is seen and examined, sleeping on his bed comfortably, not in acute distress, easy to awaken, he offers no new acute complaints Labs reviewed sodium 132, hemoglobin 12.1, stable, magnesium levels ordered Case and plan discussed with patient and bedside nurse. All questions answered. 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 Nausea and vomiting 12/22/22-12/26/22 admitted at [facility] Pain management Sleep apnea noncompliant with device Adult diet Regular; GI Catron (GERD/Peptic Ulcer) 24HR INTAKE/OUTPUT: Intake/Output Summary (Last 24 hours) at 01/18/2024 0658 Last data filed at 01/17/2024 1336 Gross per 24 hour Intake 43.33 ml Output -- Net 43.33 ml LABS: CBC: Recent Labs 01/16/24 0028 01/17/24 0053 01/18/24 0620 WBC 3.8 4.1 5.3 RBC 3.66* 3.69* 3.81* HGB 11.5* 11.8* 12.1* HCT 33.2* 33.3* 34.3* MCV 90.7 90.2 90.0 RDW 13.6 13.2 13.5 PLT 50* 52* 62* BMP: Recent Labs 01/15/24 1050 01/16/24 0028 01/17/24 0053 NA 140 138 134* K 4.0 3.2* 3.4* CL 109* 106 100 CO2 17* 18* 22 BUN 11 11 12 CREATININE 0.90 0.71 0.79 GLUCOSE 133* 84 111* CALCIUM 9.6 8.6 8.9 ANIONGAP 14* 14* 11 LIVER PROFILE: Recent Labs 01/15/24 1050 01/16/24 0028 01/17/24 0053 AST 58* 47* 33 ALT 29 23 19 BILITOT 1.8* 1.6* 0.8 ALKPHOS 86 74 64 PROT 8.1 7.4 6.8 PT/INR: No results for input(s): "PROTIME", "INR" in the last 72 hours. CARDIAC ENZYMES: No results for input(s): "TROPONINI" in the last 72 hours. Procalcitonin: No results found for: "PROCAL" COVID-19 PCR: No results for input(s): "COVID19" in the last 72 hours. Objective: Vitals: BP 138/94 Pulse 108 Temp 36.9 C (98.5 F) (Temporal) Resp 16 Ht 5' 10" (1.778 m) Wt 174 lb 13.2 oz (79.3 kg) SpO2 97% BMI 25.08 kg/m Pulse Ox: SpO2 Av.5 % Min: 95 % Max: 97 % Supplemental O2: O2 Flow Rate (L/min): 2.5 L/min Physical Exam HENT: Head: Normocephalic and atraumatic. Mouth/Throat: Mouth: Mucous membranes are moist. Cardiovascular: Rate and Rhythm: Tachycardia present. Pulmonary: Effort: Pulmonary effort is normal. Abdominal: Palpations: Abdomen is soft. Skin: General: Skin is warm and dry. Neurological: Mental Status: He is alert and oriented to person, place, and time. Psychiatric: Mood and Affect: Mood normal. Medications: Scheduled PRN folic acid, 1 mg, Oral, Daily miconazole, , Topical, BID nystatin, , Topical, BID PHENobarbital, 32.4 mg, Oral, TID thiamine, 100 mg, Oral, TID PRN medications: acetaminophen OR acetaminophen, labetalol, LORazepam, LORazepam, nicotine polacrilex OR nicotine polacrilex, ondansetron ODT OR ondansetron, polyethylene glycol (PEG) 3350, sodium chloride, stomahesive in petrolatum Continuous Assessment Data: (CAT1) Reviewed 3 or more notes from different specialty or health system (each=1). (CAT1) Reviewed 3 or more labs/studies previously ordered by me not previously counted (each=1, panels count as 1). (CAT1) Ordered 2 new labs and/or studies (each=1, panels count as 1). (LOW: 2x CAT1 or independent historian MOD: 3x CAT1 or 1x CAT3 EXTENSIVE: 3x CAT1 and 1x CAT3) Acute, acute on chronic, unstable/uncontrolled chronic problems/diagnoses: AUD, severe Repeated falls, chronic Moderate malnutrition per prior documentation, chronic Macrocytic anemia (MCV normal today), chronic Thrombocytopenia, chronic UDS (+)opiates, none given in ED and none prescribed in PDMP since 2022 COVID-19, SpO2 >97% on RA Diarrhea Dehydration hypovolemia d/t the above Groin irritation Stable chronic problems affecting care, new non-acute diagnoses: DM2 HTN Hyponatremia SHAYLA noncompliant with CPAP Chronic pain (pain mgmt) Gout HCV GERD BPH 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 Depression & anxiety Plan As a result of the above findings & factors, the following mgmt was pursued: - phenobarb taper - CIWA -COVID isolation, completed remdesivir -Addiction medicine following - miconazole powder & skin care -Labs reviewed sodium 132, hemoglobin 12.1, stable, magnesium levels ordered - am labs, replace lytes prn - PT/OT/CM/SW - delirium precautions: increase activity, limit nighttime disturbances, and avoid anticholinergic meds, benzos, etc - DVT prophylaxis: SCDs and encourage ambulation Complexity: Acute illness with systemic symptoms (MOD). Risk: Advance Directive: Full Code Anticipated Discharge - Date -1 to 2 days - Location -likely home - Pending the following -pending alcohol detox Total time spent (which include face to face and non face to face encounters) : 36 minutes Extended Emergency Contact Information Primary Emergency Contact: Kingsley Carl Relation: Significant Other Radha Berry MD Division of Hospitalist Medicine Inpatient Medical Services[place] Respiratory Care Department Progress Note Comment or reasoning for refusal: Patient was seen in attempts to fulfill CPAP/BiPAP/AutoPAP order. Patient refused PAP therapy/study at this time. Patient was educated on medical need and reasoning for physician order to ensure patient was making an informed medical decision. All of the patient's questions were answered at this time and patient was informed that if the patient changes their mind regarding wearing PAP to hit their "call light" or inform their nurse to contact Respiratory. A second, consecutive night of refusing PAP therapy/study results in order completion in the EMR. If future CPAP/BiPAP/AutoPAP therapy or study is indicated please place another order in the EMR and the assigned Respiratory Therapist will reattempt to fulfill orders. Reason for refusal: pt refused Thank you for involving Respiratory in the care of this patient, Addiction Team Progress Note January 17, 2024Thursday ACTIVE PROBLEMS: Alcohol Dependence Alcohol Withdrawal COVID infection (isolation/remdisivir) Remains isolated, on remdisivir. In effort to diminish chance of transmitting virus and to preserve equipment, encounter conducted via chart note review: FIDENCIO britt; talking with attending RN, talking with Woody via room phone. RN reports positive tremors but NO diaphoresis; In talking with Woody, he sounds weak, lethargic, anxious. Endorses feeling "shakey" but says the phenobarb and ativan helps Tells me he's having headaches (?COVID) and not able to attend to TV or reading. Tells me his family "left me" to go out of town; has been unable to talk with them. Withdrawal VS readings show tachycardia and hypertension Labs show drop inMg 1.3; Bili now wnl Luminal has been tapering (per primary team): 64mg q 6 thru today; 32mg q 8 tomorrow. 3 doses PRN ativan 2mg in past 24 hrs. Addiction Issues: He expresses desire for rehab towards [facility]; will discuss options as he progresses PLAN Luminal tapering per primary team Continue PRN ativan Continue thiamine Will follow and discuss available options for treatment in consideration of physical limitations. Mona Eckert APRN Images from the original note were not included. Hospitalist Progress Note 01/17/2024 Subjective: Admit Date: 01/15/2024 PCP: Jani Quezada Room#: [id number] A Brief Hospital course: Woody is a 63 y.o. male with past medical history below who presents with chief complaint of abdominal pain associated with nausea, vomiting, diarrhea. Patient initially presented to [facility] with N/V/D with abdominal pain. Reports that he drinks 18 beers daily, went to bed after last drink at 1800 on 01/13, symptoms present upon awakening. Feeling tremulous like going through withdrawals. History of EtOH-related pancreatitis, however lipase normal and symptoms improved with lorazepam + antiemetics + phenobarb; found to have COVID infection, due to isolation status cannot not go to detox unit. Will admit for further evaluation and management. On arrival to floor reports still having some loose stools, but nausea and abdominal pain have completely resolved. Interval History: 01/17/2024-No overnight issues. Patient is seen and examined, comfortably lying on his bed without in any acute distress Labs reviewed potassium 3.4, replaced, magnesium 1.3, replaced, hemoglobin 11.8, stable Case and plan discussed with patient and bedside nurse. All questions answered. 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 Nausea and vomiting 12/22/22-12/26/22 admitted at [facility] Pain management Sleep apnea noncompliant with device Adult diet Regular; GI Catron (GERD/Peptic Ulcer) 24HR INTAKE/OUTPUT: Intake/Output Summary (Last 24 hours) at 01/17/2024 0807 Last data filed at 01/16/2024 1200 Gross per 24 hour Intake 250 ml Output -- Net 250 ml LABS: CBC: Recent Labs 01/15/24 1050 01/16/24 0028 01/17/24 0053 WBC 7.4 3.8 4.1 RBC 3.83* 3.66* 3.69* HGB 12.7* 11.5* 11.8* HCT 34.5* 33.2* 33.3* MCV 90.1 90.7 90.2 RDW 13.6 13.6 13.2 PLT 73* 50* 52* BMP: Recent Labs 01/15/24 1050 01/16/24 0028 01/17/24 0053 NA 140 138 134* K 4.0 3.2* 3.4* CL 109* 106 100 CO2 17* 18* 22 BUN 11 11 12 CREATININE 0.90 0.71 0.79 GLUCOSE 133* 84 111* CALCIUM 9.6 8.6 8.9 ANIONGAP 14* 14* 11 LIVER PROFILE: Recent Labs 01/15/24 1050 01/16/24 0028 01/17/24 0053 AST 58* 47* 33 ALT 29 23 19 BILITOT 1.8* 1.6* 0.8 ALKPHOS 86 74 64 PROT 8.1 7.4 6.8 PT/INR: No results for input(s): "PROTIME", "INR" in the last 72 hours. CARDIAC ENZYMES: No results for input(s): "TROPONINI" in the last 72 hours. Procalcitonin: No results found for: "PROCAL" COVID-19 PCR: No results for input(s): "COVID19" in the last 72 hours. Objective: Vitals: BP (!) 162/95 (BP Location: Left arm, Patient Position: Lying) Pulse 95 Temp 36.4 C (97.5 F) (Temporal) Resp 18 Ht 5' 10" (1.778 m) Wt 174 lb 13.2 oz (79.3 kg) SpO2 99% BMI 25.08 kg/m Pulse Ox: SpO2 Av.6 % Min: 97 % Max: 99 % Supplemental O2: O2 Flow Rate (L/min): 2.5 L/min Physical Exam HENT: Head: Normocephalic and atraumatic. Mouth/Throat: Mouth: Mucous membranes are moist. Cardiovascular: Rate and Rhythm: Tachycardia present. Pulmonary: Effort: Pulmonary effort is normal. Abdominal: Palpations: Abdomen is soft. Skin: General: Skin is warm and dry. Comments: Bilateral groin with maceration & irritation. Neurological: Mental Status: He is alert and oriented to person, place, and time. Psychiatric: Mood and Affect: Mood normal. Medications: Scheduled PRN folic acid, 1 mg, Oral, Daily miconazole, , Topical, BID nystatin, , Topical, BID PHENobarbital, 64.8 mg, Oral, q6h Followed by PHENobarbital, 32.4 mg, Oral, TID remdesivir (Veklury) 100 mg in sodium chloride 0.9 % 250 mL IVPB, 100 mg, IntraVENous, q24h thiamine, 100 mg, Oral, TID PRN medications: acetaminophen OR acetaminophen, labetalol, LORazepam, LORazepam, nicotine polacrilex OR nicotine polacrilex, ondansetron ODT OR ondansetron, polyethylene glycol (PEG) 3350, sodium chloride, stomahesive in petrolatum Continuous Assessment Data: (CAT1) Reviewed 3 or more notes from different specialty or health system (each=1). (CAT1) Reviewed 3 or more labs/studies previously ordered by me not previously counted (each=1, panels count as 1). (CAT1) Ordered 2 new labs and/or studies (each=1, panels count as 1). (LOW: 2x CAT1 or independent historian MOD: 3x CAT1 or 1x CAT3 EXTENSIVE: 3x CAT1 and 1x CAT3) Acute, acute on chronic, unstable/uncontrolled chronic problems/diagnoses: AUD, severe Repeated falls, chronic Moderate malnutrition per prior documentation, chronic Macrocytic anemia (MCV normal today), chronic Thrombocytopenia, chronic UDS (+)opiates, none given in ED and none prescribed in PDMP since 2022 COVID-19, SpO2 >97% on RA Diarrhea Dehydration hypovolemia d/t the above Stable chronic problems affecting care, new non-acute diagnoses: DM2 HTN Hyponatremia SHAYLA noncompliant with CPAP Chronic pain (pain mgmt) Gout HCV GERD BPH 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 Depression & anxiety Plan As a result of the above findings & factors, the following mgmt was pursued: - IVF - phenobarb taper - CIWA -COVID isolation, continue with remdesivir -Addiction medicine following, appreciated - miconazole powder & skin care -Labs reviewed potassium 3.4, replaced, magnesium 1.3, replaced, hemoglobin 11.8, stable - am labs, replace lytes prn - PT/OT/CM/SW - delirium precautions: increase activity, limit nighttime disturbances, and avoid anticholinergic meds, benzos, etc - DVT prophylaxis: SCDs and encourage ambulation Complexity: Acute illness with systemic symptoms (MOD). Risk: Advance Directive: Full Code Anticipated Discharge - Date -TBD - Location -likely home - Pending the following -pending alcohol detox Total time spent (which include face to face and non face to face encounters) : 36.5 minutes Extended Emergency Contact Information Primary Emergency Contact: Kingsley Carl Relation: Significant Other Radha Berry MD Division of Hospitalist Medicine [facility]patient [facility] [place] Nutrition Assessment Type and Reason for Visit: Initial, Positive Nutrition Screen (-# weight loss, decreased intake/appetite) Nutrition Recommendations/Plan: Recommend liberalize diet to Regular. Pt reports continued emesis and diarrhea. Per MNT protocol, will initiate Ensure HP vanilla TID. Pt requested 4 daily, so will monitor need to increase frequency. Recommend obtain updated A1c. Recommend multivitamin. Noted Pot and Mag levels low, recommend continue to replace PRN and monitor for refeeding syndrome. Will monitor weights. Monitor weight, labs, I/Os, skin integrity and overall nutrition status. RD to follow up weekly. Malnutrition Assessment: Malnutrition Status: At risk for malnutrition (Comment) (Hx chronic moderate malnutrition from 10/22/23. Only meets 1 criteria at this time) Context: Chronic Illness Findings of the 6 clinical characteristics of malnutrition: Energy Intake: 75% or less estimated energy requirements for 1 month or longer (Pt with chronic ETOH abuse drinking 18 beers daily with little intake of actual food (per pt). Now with acute nausea/vomiting/diarrhea since 01/14) Weight Loss: Mild weight loss (specify amount and time period) (pt with weight decline from 210# 08/2022 to 182# 02/13/23 to 160# 10/21/23 and CBW 174# bed weight 01/14) Body Fat Loss: Unable to assess (Droplet Plus isolation) Muscle Mass Loss: Unable to assess (Droplet Plus isolation) Fluid Accumulation: No significant fluid accumulation Sterilisation Technician Strength: Not Performed Nutrition Assessment: 63yo M with PMHx ETOH abuse, Alcoholic Cirrhosis, Chronic Macrocytic anemia, Chronic Thrombocytopenia, Hyponatremia, Opiate Abuse, Chronic Pain, Diabetes, 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, HTN and Gout who presented to the ED with N/V/D and abdominal pain present upon awakening this AM. Reports that he drinks 18 beers daily, went to bed after last drink at 1800 yesterday, symptoms present upon awakening. Feeling tremulous like going through withdrawals. History of EtOH-related pancreatitis, however lipase normal and symptoms improved with lorazepam + antiemetics + phenobarb; found to have COVID infection (+01/14). He requests admission for detox, however due to isolation status cannot not go to detox unit. Labs with dehydration hypovolemia. On arrival to floor reports still having some loose stools, but nausea and abdominal pain have completely resolved. UDS (+)opiates. On phenobarb taper w/ ADM consulted. On a Regular; GI bland diet. Of note, pt with a hx of chronic moderate malnutrition identified on 10/22/23 r/t decreased appetite x 1 month prior d/t increased daily ETOH intake and weight loss over the past 1-2 years from 210# 08/2022 --> 182# 02/13/23 --> 160# bed 10/21/23. Pt with a CBW of 174# (bed). RD spoke with pt via phone d/t Droplet Plus isolation. He reports he started throwing up again and having diarrhea so he needs 'a lot of Ensures'. Likes the vanilla flavor and requested "at least 4" per day d/t not being able to tolerate PO intake d/t emesis. Interview was kept brief d/t pt's nausea but he states he wasn't really eating anything at home aside from drinking beer. RD asked how long this was going on and pt replied "50 years, since I was 13 years old". He reports his weight has been around 170#. Estimated Daily Nutrient Needs: Energy Requirements Based On: Kcal/kg Weight Used for Energy Requirements: [place] Weight for Energy Calculation (kg): 75 kg Total Energy Requirements (kcals/day): 27 kcal/kg = 2024 kcal/day Weight Used for Protein Requirements: [place] Weight in Kg Used for Protein Requirements: 75 kg Estimated Total Protein (g/day): 1.1 g/kg = 83 g/day Estimated Daily Total Fluid (ml/day): per MD Nutrition Related Findings: Pranav = 18, GI = bm 01/14 (loose), +nausea, I/O+, Labs: Pot 3.2, Mag 1.4, AST 47, Bili 1.6, HgbA1c 4.7 (03/2023), Meds: Folic Acid, Remdesivir Wound Type: Wound Consult Pending Current Nutrition Therapies: Adult diet Regular; GI Catron (GERD/Peptic Ulcer) Current Oral Intake Average Meal Intake: Unable to assess Average Supplements Intake: None Ordered Anthropometric Measures: Height: 177.8 cm (5' 10") Current Body Weight: 79.3 kg (174 lb 13.2 oz) (01/14 bed) Admission Body Weight: 72.6 kg (160 lb 0.9 oz) (01/14 stated) Usual Body Weight: (Per chart: 10/21 160# bed, 06/22 165# bed, 04/10 160#, 03/10 172#, 02/11 171#, 12/29 183#, 12/22 180#) [place] Body Weight (lbs) (Calculated): 166 lbs [place] Body Weight (Kg) (Calculated): 75 kg % [place] Body Weight (Calculated): 105.3 % BMI (kg/m2) (Calculated): 25.1 Weight Adjustment For: No Adjustment BMI Categories: Overweight (BMI 25.0-29.9) Nutrition Diagnosis: In context of acute illness or injury related to inadequate protein-energy intake, altered GI function as evidenced by nausea, vomiting, diarrhea In context of social or environmental circumstances, Inadequate protein intake related to other (comment) (excessive ETOH abuse) as evidenced by lab values, poor intake prior to admission Nutrition Interventions: Nutrition Education/Counseling: No recommendation at this time Coordination of Nutrition Care: Continue to monitor while inpatient Goals: Goals: PO intake 75% or greater, by next RD assessment Nutrition Monitoring and Evaluation: Behavioral-Environmental Outcomes: None Identified Food/Nutrient Intake Outcomes: Food and Nutrient Intake, Supplement Intake Physical Signs/Symptoms Outcomes: Biochemical Data, Nutrition Focused Physical Findings, Skin, Weight, Diarrhea, GI Status, Nausea or Vomiting, Fluid Status or Edema, Hemodynamic Status, Meal Time Behavior Discharge Planning: Too soon to determine Raya Blandon RD Contact: *[phone] Images from the original note were not included. Hospitalist Progress Note 01/16/2024 Subjective: Admit Date: 01/15/2024 PCP: Jani Quezada Room#: [id number] A Brief Hospital course: Woody is a 63 y.o. male with past medical history below who presents with chief complaint of abdominal pain associated with nausea, vomiting, diarrhea. Patient initially presented to [facility] with N/V/D with abdominal pain. Reports that he drinks 18 beers daily, went to bed after last drink at 1800 on 01/13, symptoms present upon awakening. Feeling tremulous like going through withdrawals. History of EtOH-related pancreatitis, however lipase normal and symptoms improved with lorazepam + antiemetics + phenobarb; found to have COVID infection, due to isolation status cannot not go to detox unit. Will admit for further evaluation and management. On arrival to floor reports still having some loose stools, but nausea and abdominal pain have completely resolved. Interval History: 01/16/2024-No overnight issues. Patient is seen and examined, resting on his bed comfortably, not in acute distress Labs reviewed potassium 3.3, replaced, hemoglobin 11.5, dropped from 12.7 Case and plan discussed with patient and bedside nurse. All questions answered. 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 Nausea and vomiting 12/22/22-12/26/22 admitted at [facility] Pain management Sleep apnea noncompliant with device Adult diet Regular; GI Catron (GERD/Peptic Ulcer) 24HR INTAKE/OUTPUT: Intake/Output Summary (Last 24 hours) at 01/16/2024 0805 Last data filed at 01/16/2024 0612 Gross per 24 hour Intake 1482 ml Output 1300 ml Net 182 ml LABS: CBC: Recent Labs 01/15/24 1050 01/16/24 0028 WBC 7.4 3.8 RBC 3.83* 3.66* HGB 12.7* 11.5* HCT 34.5* 33.2* MCV 90.1 90.7 RDW 13.6 13.6 PLT 73* 50* BMP: Recent Labs 01/15/24 1050 01/16/24 0028 NA 140 138 K 4.0 3.2* CL 109* 106 CO2 17* 18* BUN 11 11 CREATININE 0.90 0.71 GLUCOSE 133* 84 CALCIUM 9.6 8.6 ANIONGAP 14* 14* LIVER PROFILE: Recent Labs 01/15/24 1050 01/16/24 0028 AST 58* 47* ALT 29 23 BILITOT 1.8* 1.6* ALKPHOS 86 74 PROT 8.1 7.4 PT/INR: No results for input(s): "PROTIME", "INR" in the last 72 hours. CARDIAC ENZYMES: No results for input(s): "TROPONINI" in the last 72 hours. Procalcitonin: No results found for: "PROCAL" COVID-19 PCR: No results for input(s): "COVID19" in the last 72 hours. Objective: Vitals: BP 150/99 Pulse 104 Temp 37.2 C (98.9 F) (Temporal) Resp 18 Ht 5' 10" (1.778 m) Wt 174 lb 13.2 oz (79.3 kg) SpO2 99% BMI 25.08 kg/m Pulse Ox: SpO2 Av.4 % Min: 97 % Max: 100 % Supplemental O2: O2 Flow Rate (L/min): 2.5 L/min Physical Exam HENT: Head: Normocephalic and atraumatic. Mouth/Throat: Mouth: Mucous membranes are moist. Cardiovascular: Rate and Rhythm: Tachycardia present. Pulmonary: Effort: Pulmonary effort is normal. Abdominal: Palpations: Abdomen is soft. Skin: General: Skin is warm and dry. Comments: Bilateral groin with maceration & irritation. Neurological: Mental Status: He is alert and oriented to person, place, and time. Psychiatric: Mood and Affect: Mood normal. Medications: Scheduled PRN folic acid, 1 mg, Oral, Daily miconazole, , Topical, BID nystatin, , Topical, BID PHENobarbital, 64.8 mg, Oral, Q4H Followed by PHENobarbital, 64.8 mg, Oral, q6h Followed by [START ON 01/17/2024] PHENobarbital, 32.4 mg, Oral, TID remdesivir (Veklury) 100 mg in sodium chloride 0.9 % 250 mL IVPB, 100 mg, IntraVENous, q24h thiamine, 100 mg, Oral, Daily PRN medications: acetaminophen OR acetaminophen, labetalol, LORazepam OR LORazepam OR LORazepam OR LORazepam OR LORazepam OR LORazepam OR LORazepam OR LORazepam, nicotine polacrilex OR nicotine polacrilex, ondansetron ODT OR ondansetron, polyethylene glycol (PEG) 3350, sodium chloride, stomahesive in petrolatum Continuous Assessment Data: (CAT1) Reviewed 3 or more notes from different specialty or health system (each=1). (CAT1) Reviewed 3 or more labs/studies ordered by another provider not previously counted (each=1, panels count as 1). (CAT1) Ordered 2 new labs and/or studies (each=1, panels count as 1). (LOW: 2x CAT1 or independent historian MOD: 3x CAT1 or 1x CAT3 EXTENSIVE: 3x CAT1 and 1x CAT3) Acute, acute on chronic, unstable/uncontrolled chronic problems/diagnoses: AUD, severe Repeated falls, chronic Moderate malnutrition per prior documentation, chronic Macrocytic anemia (MCV normal today), chronic Thrombocytopenia, chronic UDS (+)opiates, none given in ED and none prescribed in PDMP since 2022 COVID-19, SpO2 >97% on RA Diarrhea Dehydration hypovolemia d/t the above Stable chronic problems affecting care, new non-acute diagnoses: DM2 HTN Hyponatremia SHAYLA noncompliant with CPAP Chronic pain (pain mgmt) Gout HCV GERD BPH 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 Depression & anxiety Plan As a result of the above findings & factors, the following mgmt was pursued: - IVF - phenobarb taper - CIWA - has risk factors for more severe COVID infection and AST/ALT okay, will start 3-day course remdes - ADM consult - miconazole powder & skin care - am labs, replace lytes prn - PT/OT/CM/SW - delirium precautions: increase activity, limit nighttime disturbances, and avoid anticholinergic meds, benzos, etc - DVT prophylaxis: SCDs and encourage ambulation Complexity: Acute illness with systemic symptoms (MOD). Risk: Advance Directive: Full Code Anticipated Discharge - Date -TBD - Location -likely home - Pending the following -pending alcohol detox Total time spent (which include face to face and non face to face encounters) : 40.5 minutes Extended Emergency Contact Information Primary Emergency Contact: Kingsley Carl Relation: Significant Other Radha Berry MD Division of Hospitalist Medicine Inpatient Medical Services[place] Respiratory Care Department Progress Note Comment or reasoning for refusal: Patient was seen in attempts to fulfill CPAP/BiPAP/AutoPAP order. Patient refused PAP therapy/study at this time. Patient was educated on medical need and reasoning for physician order to ensure patient was making an informed medical decision. All of the patient's questions were answered at this time and patient was informed that if the patient changes their mind regarding wearing PAP to hit their "call light" or inform their nurse to contact Respiratory. A second, consecutive night of refusing PAP therapy/study results in order completion in the EMR. If future CPAP/BiPAP/AutoPAP therapy or study is indicated please place another order in the EMR and the assigned Respiratory Therapist will reattempt to fulfill orders. Reason for refusal: pt didn't want to try PAP on 2l nc Thank you for involving Respiratory in the care of this patient, documented in this encounter [facility] 01-25-2024 Note Formatting of this n ote might be different from the original. Updated notes placed to [facility] via [facility] per TCC request. Await review and response regarding ability to accept. TCC notified. [facility] 01-25-2024 Note Formatting of this n ote might be different from the original. Updated notes placed to [facility] via [facility] per TCC request. Await review and response regarding ability to accept. TCC notified. [facility] 01-25-2024 Note Formatting of this n ote might be different from the original. Pt remains on east. Pt is medically ready for DC. TCC tasked PT and OT to see today. [facility]. No covid needed, pt is able to go now with [facility] covid isolation policy. Updated PT and OT notes in. TCC tasked [facility] to send updated MD,PT, and OT notes to [facility]. TCC messaged SNF via careport to start auth once updated notes are received. TCC updated pt at bedside. Pt agreeable to plan. Auth pending. TCC will follow for auth approval. [facility] 01-25-2024 Note Formatting of this n ote might be different from the original. Pt remains on 5 east. Pt is medically ready for DC. TCC tasked PT and OT to see today. [facility]. No covid needed, pt is able to go now with SNF covid isolation policy. Updated PT and OT notes in. TCC tasked [facility] to send updated MD,PT, and OT notes to [facility]. TCC messaged SNF via careport to start auth once updated notes are received. TCC updated pt at bedside. Pt agreeable to plan. Auth pending. TCC will follow for auth approval. [facility] 01-22-2024 Hospital Discharge instructions LEAH Jimenez CNP - 01/22/2024 2:46 PM EDT [facility] Traumatic Stress [address], [address] [place] [address] [facility] Address: [address] [place] [address], [place] [address] Walk-in Clinic: 12:00 pm [facility] [address] , [address] [place] [address] ALEXANDER Rosario - 01/22/2024 12:36 PM EDT Phone numbers for Community Assistance: Food [place] [phone] [facility] Community Assistance [phone] [facility] [phone] Dedra Raymundo RN - 01/26/2024 8:11 AM EDT Continuity of Care Form Patient Name: Woody Ni : 1960 Admit date: 01/15/2024 Discharge date: 01/26/2024 Code Status Order: Full Code Advance Directives: N Admitting Physician: Hayes Scott MD PCP: Jani Quezada Discharging Nurse: Roxanna BRODERICK Discharging Hospital Unit/Room#: E5-507/E5-507 A Discharging Unit Emergency Contact: Extended Emergency Contact Information Primary Emergency Contact: Kingsley Carl Troy Relation: Significant Other Past Surgical History: Past Surgical History: Procedure Laterality Date BACK SURGERY x 2 CHOLECYSTECTOMY LAMINECTOMY LAP,CHOLECYSTECTOMY (HISTORICAL) N/A 01/05/2023 WISDOM TOOTH EXTRACTION Immunization History: Immunization History Administered Date(s) Administered Influenza, injectable, quadrivalent 08/17/2015, 07/11/2016, 08/28/2017, 08/26/2018, 08/16/2019, 07/17/2020 Influenza, seasonal, injectable 07/18/2016 Pneumococcal Conjugate PCV 13 08/28/2017 Tdap 08/26/2018 Active Problems: Medical Problems Problem List * (Principal) Alcohol withdrawal syndrome without complication (HCC) Hyponatremia Hypovolemia Chronic alcoholic hepatitis Severe malnutrition (CMS/HCC) (HCC) (Chronic) Postural dizziness with presyncope Intractable nausea and vomiting Chronic pain syndrome Complication of surgical procedure Intercostal pain Low back pain Mild recurrent major depression (HCC) Myalgia Right hip pain Shoulder joint pain Acute kidney injury (HCC) DENNYS (acute kidney injury) (HCC) Gallbladder sludge RUQ pain Acute on chronic cholecystitis 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) Severe alcohol use disorder (HCC) (Chronic) Alcohol withdrawal syndrome with complication (HCC) Alcohol abuse Recurrent falls Alcohol induced acute pancreatitis without necrosis or infection Repeated falls Moderate malnutrition (CMS/HCC) (HCC) (Chronic) Other pancytopenia (CMS/HCC) (HCC) Osteoarthritis of spine with radiculopathy, lumbar region Essential hypertension Diabetes (HCC) Cirrhosis (HCC) Asthma Thyroid disease SHAYLA (obstructive sleep apnea) Lumbar stenosis HLD (hyperlipidemia) Hepatitis Isolation/Infection: No active isolations No active infections Nurse Assessment: Last Vital Signs: BP 138/78 (BP Location: Left arm, Patient Position: Lying) Pulse 82 Temp 36.3 C (97.4 F) (Temporal) Resp 18 Ht 5' 10" (1.778 m) Wt 173 lb 3.2 oz (78.6 kg) SpO2 97% BMI 24.85 kg/m Last documented pain score (0-10 scale): Last Weight: Wt Readings from Last 1 Encounters: 01/26/24 173 lb 3.2 oz (78.6 kg) Mental Status: ISAIAS Patient Mental Status: oriented and alert IV Access: ISAIAS IV Access: None Nursing Mobility/ADLs: Walking Minimal assistance Transfer Independent Bathing Independent Dressing Independent Toileting Independent 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 Independent Med Delivery no Wound Care Documentation and Therapy: Elimination: Continence: Bowel: yes Bladder: yes Urinary Catheter: None Colostomy/Ileostomy/Ileal Conduit: None Date of Last BM: 01/26/2024 Intake/Output Summary (Last 24 hours) at 01/26/2024 0810 Last data filed at 01/26/2024 0626 Gross per 24 hour Intake 150 ml Output -- Net 150 ml I/O last 3 completed shifts: In: 150 (1.9 mL/kg) [P.O.:150] Out: - (0 mL/kg) Weight: 78.6 kg Safety Concerns: at risk for falls Impairments/Disabilities: none Nutrition Therapy: Current Nutrition Therapy: Oral diet: general Routes of Feeding: oral Liquids: no restrictions Daily Fluid Restriction: no Last Modified Barium Swallow with Video (Video Swallowing Test): not done Treatments at the Time of Hospital Discharge: Respiratory Treatments: NA Oxygen Therapy: is not on home oxygen therapy. Ventilator: No ventilator support Rehab Therapies: physical therapy and occupational therapy Weight Bearing Status/Restrictions: no restriction Other Medical Equipment (for information only, NOT a DME order): wheeled walker Other Treatments: NA Patient's personal belongings (please select all that are sent with patient): none RN SIGNATURE: MANAGEMENT/SOCIAL WORK SECTION Inpatient Status Date: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 the shift include remain HDS Problem: Pain Goal: My pain/discomfort is manageable Outcome: Progressing Problem: Safety Goal: Patient will be injury free during hospitalization Outcome: Progressing Goal: I will remain free of falls Outcome: Progressing Problem: Daily Care Goal: Daily care needs are met Outcome: Progressing Problem: Psychosocial Needs Goal: Demonstrates ability to cope with hospitalization/illness Outcome: Progressing Goal: Collaborate with me, my family, and caregiver to identify my specific goals Outcome: Progressing Problem: Discharge Barriers Goal: My discharge needs are met Outcome: Progressing Problem: Knowledge Deficit Goal: Patient/family/caregiver demonstrates understanding of disease process, treatment plan, medications, and discharge instructions Outcome: Progressing Problem: Potential for Compromised Skin Integrity Goal: Skin Integrity is Maintained or Improved Outcome: Progressing Goal: Nutritional status is improving Outcome: Progressing Problem: Urinary Incontinence Goal: Perineal skin integrity is maintained or improved Outcome: Progressing [facility] 01-15-2024 History and physical note Images from the original note were not included. Attending History and Physical Admit Date: 01/15/2024 PCP: Jani Quezada CHIEF COMPLAINT: N/V/D with abdominal pain Reason for Admission: medically-managed EtOH detox History Obtained From: Patient HISTORY OF PRESENT ILLNESS: Woody is a 63 y.o. male with past medical history below who presents with chief complaint listed above. Patient presented to [facility] ED with N/V/D with abdominal pain present upon awakening this AM. Reports that he drinks 18 beers daily, went to bed after last drink at 1800 yesterday, symptoms present upon awakening. Feeling tremulous like going through withdrawals. History of EtOH-related pancreatitis, however lipase normal and symptoms improved with lorazepam + antiemetics + phenobarb; found to have COVID infection. He requests admission for detox, however due to isolation status cannot not go to detox unit. Will admit for further evaluation and management. On arrival to floor reports still having some loose stools, but nausea and abdominal pain have completely resolved. 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 Nausea and vomiting 12/22/22-12/26/22 admitted at [facility] Pain management Sleep apnea noncompliant with device Past Surgical History: Past Surgical History: Procedure Laterality Date BACK SURGERY x 2 CHOLECYSTECTOMY LAMINECTOMY LAP,CHOLECYSTECTOMY (HISTORICAL) N/A 01/05/2023 WISDOM TOOTH EXTRACTION Social History: Social History Socioeconomic History Marital status: Spouse name: Not on file Number of children: Not on file Years of education: Not on file Highest education level: Not on file Occupational History Not on file Tobacco Use Smoking status: Every Day Types: Cigars Smokeless tobacco: Former Vaping Use Vaping Use: Every day Substances: CBD, canabis Devices: Disposable Substance and Sexual Activity Alcohol use: Yes Alcohol/week: 105.0 standard drinks of alcohol Types: 105 Cans of beer per week Comment: 15-18 beers/day Drug use: Yes Types: Marijuana Comment: daily Sexual activity: Not on file Other Topics Concern Not on file Social History Narrative Not on file Social Determinants of Health Financial Resource Strain: High Risk (01/15/2024) Overall Financial Resource Strain (CARDIA) Difficulty of Paying Living Expenses: Hard Food Insecurity: Food Insecurity Present (01/15/2024) Hunger Vital Sign Worried About Running Out of Food in the Last Year: Sometimes true Ran Out of Food in the Last Year: Sometimes true Transportation Needs: No Transportation Needs (01/15/2024) PRAPARE - Transportation Lack of Transportation (Medical): No Lack of Transportation (Non-Medical): No Physical Activity: Inactive (01/15/2024) Exercise Vital Sign Days of Exercise per Week: 0 days Minutes of Exercise per Session: 0 min Stress: No Stress Concern Present (04/03/2023) [employer] [place] - Occupational Stress Questionnaire Feeling of Stress : Not at all Social Connections: Socially Isolated (12/07/2023) Social Connection and Isolation Panel [NHANES] Frequency of Communication with Friends and Family: Never Frequency of Social Gatherings with Friends and Family: Never Attends Amish Services: Never Active Member of Clubs or Organizations: No Attends Club or Organization Meetings: Not on file Marital Status: Living with partner Intimate Partner Violence: Not At Risk (01/15/2024) Humiliation, Afraid, Rape, and Kick questionnaire Fear of Current or Ex-Partner: No Emotionally Abused: No Physically Abused: No Sexually Abused: No Housing Stability: Low Risk (01/15/2024) Housing Stability Vital Sign Unable to Pay for Housing in the Last Year: No Number of Places Lived in the Last Year: 1 Unstable Housing in the Last Year: No Recent Concern: Housing Stability - High Risk (10/21/2023) Housing Stability Vital Sign Unable to Pay for Housing in the Last Year: Yes Number of Places Lived in the Last Year: 1 Unstable Housing in the Last Year: No Family History: Family History Problem Relation Name Age of Onset Depression Mother Depression Maternal Grandmother Medications Prior to Admission: Current Outpatient Medications Medication Instructions albuterol 108 (90 Base) MCG/ACT inhaler 1 puff, Inhalation, Every 4 hours PRN alendronate (FOSAMAX) 70 mg, Oral, Weekly amLODIPine (NORVASC) 2.5 mg, Oral, Daily Bioflavonoid Products (Alana-C) tablet Every 24 hours calcium carbonate (TUMS) 500 mg, Oral, Daily cyanocobalamin (Vitamin B-12) 1000 MCG/ML injection 1 mL intramuscularly once a month famotidine (PEPCID) 20 mg, Oral, 2 times daily fluticasone (Flonase) 50 MCG/ACT nasal spray 1 spray, Each Nostril, Daily PRN folic acid (FOLVITE) 1 mg, Oral, Daily ipratropium-albuterol (Duo-Neb) 0.5-2.5 mg/3 mL nebulizer solution Every 6 hours ketoconazole (NIZOral) 2 % shampoo EVERY THREE DAYS levothyroxine (Synthroid, Levoxyl) 50 MCG tablet TAKE 1 TABLET BY MOUTH DAILY losartan (COZAAR) 100 mg, Oral, Daily magnesium oxide (MAG-OX) 800 mg, Oral, 2 times daily niacin 100 MG tablet Every 24 hours nicotine (Nicoderm, Step 1) 21 MG/24HR patch 1 patch, TransDERmal, Daily nitroglycerin (Nitrostat) 0.4 MG SL tablet 1 tab(s) sublingually every 5 minutes x 3 doses prn olmesartan (BENICAR) 40 mg, Oral, Daily pantoprazole (PROTONIX) 40 mg, Oral, 2 times daily before meals, Do not crush, chew, or split. potassium chloride ER (Micro-K) 10 MEQ ER capsule 10 mEq, Oral, Daily sodium chloride 1 g, Oral, 2 times daily with meals tamsulosin (FLOMAX) 0.4 mg, Oral, Daily thiamine (VITAMIN B-1) 100 mg, Oral, Daily Allergies: Allergies Allergen Reactions Allopurinol Other Breaks out in blisters Codeine Nausea Only Penicillin G Swelling REVIEW OF SYSTEMS: See HPI. Vitals: BP (!) 171/119 (BP Location: Left arm) Pulse (!) 121 Temp 37 C (98.6 F) (Temporal) Resp 17 Ht 5' 10" (1.778 m) Wt 174 lb 13.2 oz (79.3 kg) SpO2 97% BMI 25.08 kg/m BMI Classification: Overweight (BMI 25.0-29.9) Pulse Ox: SpO2 Av.8 % Min: 97 % Max: 99 % PHYSICAL EXAM: General appearance: NAD. Cooperative with exam. Respiratory: CTAB. Normal effort. Cardiovascular: Mildly tachycardic, regular. No M/R/G. No pedal edema. Abdomen: NBS. Soft. NT/ND. Integument: Bilateral groin with maceration & irritation. Neurologic: Alert. Answering questions & following directions appropriately. Visible tremor in hands. LABS/STUDIES/REVIEW OF EXTERNAL RECORDS: The following labs and/or studies were reviewed by me as part of the admissions process. HEME: Recent Labs 01/15/24 1050 WBC 7.4 RBC 3.83* HGB 12.7* HCT 34.5* MCV 90.1 RDW 13.6 PLT 73* CHEM: Recent Labs 01/15/24 1050 NA 140 K 4.0 CL 109* CO2 17* BUN 11 CREATININE 0.90 EGFR >90.0 GLUCOSE 133* CALCIUM 9.6 ANIONGAP 14* LIVER: Recent Labs 01/15/24 1050 AST 58* ALT 29 BILITOT 1.8* ALKPHOS 86 ALBUMIN 4.7 PROT 8.1 LIPASE 124 URINE: Recent Labs 01/15/24 1131 COLORU Light Yellow CLARITYU Clear RENU 5.5 LEUKOCYTESU Negative NITRITEU Negative PROTUR 20* GLUCOSEU Normal BILIRUBINU Negative KETONESU Trace* UROBILINOGEN Normal BLOODU Negative Recent Labs 01/15/24 1131 RBCU Negative WBCU Negative SQUAMEPIU Negative BACTERIAU Few* Encounter Date: 10/20/23 ECG 12 lead Result Value Heart Rate 99 QRSD Interval 148 QT Interval 392 QTC Interval 503 P [place] 0 QRS [place] -57 T Wave [place] 6 TX Interval 127 Impression Sinus rhythm RBBB and LAFB No significant changes compared to previous Electronically Signed On 10-20-2023 18:25:24 EST by Khurram Bob CXR portable: SUPPORT DEVICES: None OSSEOUS STRUCTURES: Unremarkable. HEART AND MEDIASTINUM: The cardiomediastinal silhouette appears unchanged from the prior exam. LUNGS AND PLEURA: The lungs are clear. No sizable pleural effusion. MEDICAL DECISION MAKING: Acute, acute on chronic, unstable/uncontrolled chronic problems: AUD, severe Repeated falls, chronic Moderate malnutrition per prior documentation, chronic Macrocytic anemia (MCV normal today), chronic Thrombocytopenia, chronic UDS (+)opiates, none given in ED and none prescribed in PDMP since 2022 COVID-19, SpO2 >97% on RA Diarrhea Dehydration hypovolemia d/t the above Stable chronic problems affecting care, new non-acute diagnoses: DM2 HTN Hyponatremia SHAYLA noncompliant with CPAP Chronic pain (pain mgmt) Gout HCV GERD BPH 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 Depression & anxiety As a result of the above findings & factors, the following mgmt was pursued: - IVF - phenobarb taper - CIWA - has risk factors for more severe COVID infection and AST/ALT okay, will start 3-day course remdes - ADM consult - miconazole powder & skin care - delirium precautions: increase activity - DVT prophylaxis: SCDs and encourage ambulation Data: (CAT1) Reviewed 3 or more labs and/or studies obtained by the ED (each=1, lab panels count as 1). (CAT3) Discussed with ED provider, Dr. Ewing , regarding patient's eval & mgmt thus far, and agree with the plan for transfer to [facility] & hospitalization. Code status: Full Code I have discussed code status with patient, and they have elected for FULL CODE at time of admission. They state that they do have an advance directive. Please forward a copy of this H&P to the patient's PCP. Thank you. Hayes Scott MD Division of Hospitalist Medicine Inpatient Medical Services[place] Data: Extensive (Two out of three: 3x CAT1, 1x CAT2, 1x CAT3) Risk: Admission to hospital-level care was considered or occurred (HIGH). [employer] Work Phone: 01-15-2024 Note [employer] [facility] 01-15-2024 History and physical note Images from the original note were not included. Attending History and Physical Admit Date: 01/15/2024 PCP: Jani Quezada CHIEF COMPLAINT: N/V/D with abdominal pain Reason for Admission: medically-managed EtOH detox History Obtained From: Patient HISTORY OF PRESENT ILLNESS: Woody is a 63 y.o. male with past medical history below who presents with chief complaint listed above. Patient presented to [facility] ED with N/V/D with abdominal pain present upon awakening this AM. Reports that he drinks 18 beers daily, went to bed after last drink at 1800 yesterday, symptoms present upon awakening. Feeling tremulous like going through withdrawals. History of EtOH-related pancreatitis, however lipase normal and symptoms improved with lorazepam + antiemetics + phenobarb; found to have COVID infection. He requests admission for detox, however due to isolation status cannot not go to detox unit. Will admit for further evaluation and management. On arrival to floor reports still having some loose stools, but nausea and abdominal pain have completely resolved. 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 Nausea and vomiting 12/22/22-12/26/22 admitted at [facility] Pain management Sleep apnea noncompliant with device Past Surgical History: Past Surgical History: Procedure Laterality Date BACK SURGERY x 2 CHOLECYSTECTOMY LAMINECTOMY LAP,CHOLECYSTECTOMY (HISTORICAL) N/A 01/05/2023 WISDOM TOOTH EXTRACTION Social History: Social History Socioeconomic History Marital status: Spouse name: Not on file Number of children: Not on file Years of education: Not on file Highest education level: Not on file Occupational History Not on file Tobacco Use Smoking status: Every Day Types: Cigars Smokeless tobacco: Former Vaping Use Vaping Use: Every day Substances: CBD, canabis Devices: Disposable Substance and Sexual Activity Alcohol use: Yes Alcohol/week: 105.0 standard drinks of alcohol Types: 105 Cans of beer per week Comment: 15-18 beers/day Drug use: Yes Types: Marijuana Comment: daily Sexual activity: Not on file Other Topics Concern Not on file Social History Narrative Not on file Social Determinants of Health Financial Resource Strain: High Risk (01/15/2024) Overall Financial Resource Strain (CARDIA) Difficulty of Paying Living Expenses: Hard Food Insecurity: Food Insecurity Present (01/15/2024) Hunger Vital Sign Worried About Running Out of Food in the Last Year: Sometimes true Ran Out of Food in the Last Year: Sometimes true Transportation Needs: No Transportation Needs (01/15/2024) PRAPARE - Transportation Lack of Transportation (Medical): No Lack of Transportation (Non-Medical): No Physical Activity: Inactive (01/15/2024) Exercise Vital Sign Days of Exercise per Week: 0 days Minutes of Exercise per Session: 0 min Stress: No Stress Concern Present (04/03/2023) [employer] [place] [employer] - Occupational Stress Questionnaire Feeling of Stress : Not at all Social Connections: Socially Isolated (12/07/2023) Social Connection and Isolation Panel [NHANES] Frequency of Communication with Friends and Family: Never Frequency of Social Gatherings with Friends and Family: Never Attends Amish Services: Never Active Member of Clubs or Organizations: No Attends Club or Organization Meetings: Not on file Marital Status: Living with partner Intimate Partner Violence: Not At Risk (01/15/2024) Humiliation, Afraid, Rape, and Kick questionnaire Fear of Current or Ex-Partner: No Emotionally Abused: No Physically Abused: No Sexually Abused: No Housing Stability: Low Risk (01/15/2024) Housing Stability Vital Sign Unable to Pay for Housing in the Last Year: No Number of Places Lived in the Last Year: 1 Unstable Housing in the Last Year: No Recent Concern: Housing Stability - High Risk (10/21/2023) Housing Stability Vital Sign Unable to Pay for Housing in the Last Year: Yes Number of Places Lived in the Last Year: 1 Unstable Housing in the Last Year: No Family History: Family History Problem Relation Name Age of Onset Depression Mother Depression Maternal Grandmother Medications Prior to Admission: Current Outpatient Medications Medication Instructions albuterol 108 (90 Base) MCG/ACT inhaler 1 puff, Inhalation, Every 4 hours PRN alendronate (FOSAMAX) 70 mg, Oral, Weekly amLODIPine (NORVASC) 2.5 mg, Oral, Daily Bioflavonoid Products (Alana-C) tablet Every 24 hours calcium carbonate (TUMS) 500 mg, Oral, Daily cyanocobalamin (Vitamin B-12) 1000 MCG/ML injection 1 mL intramuscularly once a month famotidine (PEPCID) 20 mg, Oral, 2 times daily fluticasone (Flonase) 50 MCG/ACT nasal spray 1 spray, Each Nostril, Daily PRN folic acid (FOLVITE) 1 mg, Oral, Daily ipratropium-albuterol (Duo-Neb) 0.5-2.5 mg/3 mL nebulizer solution Every 6 hours ketoconazole (NIZOral) 2 % shampoo EVERY THREE DAYS levothyroxine (Synthroid, Levoxyl) 50 MCG tablet TAKE 1 TABLET BY MOUTH DAILY losartan (COZAAR) 100 mg, Oral, Daily magnesium oxide (MAG-OX) 800 mg, Oral, 2 times daily niacin 100 MG tablet Every 24 hours nicotine (Nicoderm, Step 1) 21 MG/24HR patch 1 patch, TransDERmal, Daily nitroglycerin (Nitrostat) 0.4 MG SL tablet 1 tab(s) sublingually every 5 minutes x 3 doses prn olmesartan (BENICAR) 40 mg, Oral, Daily pantoprazole (PROTONIX) 40 mg, Oral, 2 times daily before meals, Do not crush, chew, or split. potassium chloride ER (Micro-K) 10 MEQ ER capsule 10 mEq, Oral, Daily sodium chloride 1 g, Oral, 2 times daily with meals tamsulosin (FLOMAX) 0.4 mg, Oral, Daily thiamine (VITAMIN B-1) 100 mg, Oral, Daily Allergies: Allergies Allergen Reactions Allopurinol Other Breaks out in blisters Codeine Nausea Only Penicillin G Swelling REVIEW OF SYSTEMS: See HPI. Vitals: BP (!) 171/119 (BP Location: Left arm) Pulse (!) 121 Temp 37 C (98.6 F) (Temporal) Resp 17 Ht 5' 10" (1.778 m) Wt 174 lb 13.2 oz (79.3 kg) SpO2 97% BMI 25.08 kg/m BMI Classification: Overweight (BMI 25.0-29.9) Pulse Ox: SpO2 Av.8 % Min: 97 % Max: 99 % PHYSICAL EXAM: General appearance: NAD. Cooperative with exam. Respiratory: CTAB. Normal effort. Cardiovascular: Mildly tachycardic, regular. No M/R/G. No pedal edema. Abdomen: NBS. Soft. NT/ND. Integument: Bilateral groin with maceration & irritation. Neurologic: Alert. Answering questions & following directions appropriately. Visible tremor in hands. LABS/STUDIES/REVIEW OF EXTERNAL RECORDS: The following labs and/or studies were reviewed by me as part of the admissions process. HEME: Recent Labs 01/15/24 1050 WBC 7.4 RBC 3.83* HGB 12.7* HCT 34.5* MCV 90.1 RDW 13.6 PLT 73* CHEM: Recent Labs 01/15/24 1050 NA 140 K 4.0 CL 109* CO2 17* BUN 11 CREATININE 0.90 EGFR >90.0 GLUCOSE 133* CALCIUM 9.6 ANIONGAP 14* LIVER: Recent Labs 01/15/24 1050 AST 58* ALT 29 BILITOT 1.8* ALKPHOS 86 ALBUMIN 4.7 PROT 8.1 LIPASE 124 URINE: Recent Labs 01/15/24 1131 COLORU Light Yellow CLARITYU Clear RENU 5.5 LEUKOCYTESU Negative NITRITEU Negative PROTUR 20* GLUCOSEU Normal BILIRUBINU Negative KETONESU Trace* UROBILINOGEN Normal BLOODU Negative Recent Labs 01/15/24 1131 RBCU Negative WBCU Negative SQUAMEPIU Negative BACTERIAU Few* Encounter Date: 10/20/23 ECG 12 lead Result Value Heart Rate 99 QRSD Interval 148 QT Interval 392 QTC Interval 503 P [place] 0 QRS [place] -57 T Wave [place] 6 TX Interval 127 Impression Sinus rhythm RBBB and LAFB No significant changes compared to previous Electronically Signed On 10-20-2023 18:25:24 EST by Khurram Bob CXR portable: SUPPORT DEVICES: None OSSEOUS STRUCTURES: Unremarkable. HEART AND MEDIASTINUM: The cardiomediastinal silhouette appears unchanged from the prior exam. LUNGS AND PLEURA: The lungs are clear. No sizable pleural effusion. MEDICAL DECISION MAKING: Acute, acute on chronic, unstable/uncontrolled chronic problems: AUD, severe Repeated falls, chronic Moderate malnutrition per prior documentation, chronic Macrocytic anemia (MCV normal today), chronic Thrombocytopenia, chronic UDS (+)opiates, none given in ED and none prescribed in PDMP since 2022 COVID-19, SpO2 >97% on RA Diarrhea Dehydration hypovolemia d/t the above Stable chronic problems affecting care, new non-acute diagnoses: DM2 HTN Hyponatremia SHAYLA noncompliant with CPAP Chronic pain (pain mgmt) Gout HCV GERD BPH 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 Depression & anxiety As a result of the above findings & factors, the following mgmt was pursued: - IVF - phenobarb taper - CIWA - has risk factors for more severe COVID infection and AST/ALT okay, will start 3-day course remdes - ADM consult - miconazole powder & skin care - delirium precautions: increase activity - DVT prophylaxis: SCDs and encourage ambulation Data: (CAT1) Reviewed 3 or more labs and/or studies obtained by the ED (each=1, lab panels count as 1). (CAT3) Discussed with ED provider, Dr. Ewing , regarding patient's eval & mgmt thus far, and agree with the plan for transfer to [facility] & hospitalization. Code status: Full Code I have discussed code status with patient, and they have elected for FULL CODE at time of admission. They state that they do have an advance directive. Please forward a copy of this H&P to the patient's PCP. Thank you. Hayes Scott MD Division of Hospitalist Medicine [place] [place]: Extensive (Two out of three: 3x CAT1, 1x CAT2, 1x CAT3) Risk: Admission to hospital-level care was considered or occurred (HIGH). documented in this encounter [facility] 01-15-2024 Emergency department Note Phoned [facility]. Hand off report given to MEGGAN Laurent. Nurse requesting that patient have another dose of ativan prior to leaving. Physician informed. Pratibha Okeefe RN 01/15/24 1647 [facility] 01-15-2024 Emergency department Note Phoned [facility]. Hand off report given to MEGGAN Laurent. Nurse requesting that patient have another dose of ativan prior to leaving. Physician informed. Pratibha Okeefe RN 01/15/24 1647 RN spoke Christie per patient request and asked her to bring him glasses and his cane, Christie acknowledged and thanked RN for the call. Aubree Ratliff RN 01/15/24 1322 Patient declined anything to eat or drink at this time. Call light within reach Pratibha Okeefe RN 01/15/24 1241 EMERGENCY DEPARTMENT ENCOUNTER Pt Name: Woody Ni Birthdate 1960 Date of evaluation: 01/15/2024 ED Provider: Daniel Ewing DO CHIEF COMPLAINT Chief Complaint Patient presents with Vomiting Withdrawal Alcohol HISTORY OF PRESENT ILLNESS (Location/Symptom, Timing/Onset, Context/Setting, Quality, Duration, Modifying Factors, Severity) Note limiting factors. I wore appropriate PPE for the entirety of this encounter. HPI Woody Ni is a 63 y.o. male who presents to the emergency department with nausea vomiting diarrhea upper abdominal pain. Also feeling tremulous like he is going through alcohol withdrawals. Patient drinks 18 beers a day. Last drink was around 6 PM last night. Woke up this morning with upper abdominal pain nausea and vomiting and tremulousness prompting him to call 911. Admitted in October with pancreatitis and alcohol withdrawals. Has never had alcohol withdrawal seizure. Denies any other illicit drug use. No fevers chills chest pain shortness of breath. Denies any urinary symptoms. Nursing Notes were reviewed. REVIEW OF SYSTEMS 14 systems reviewed and otherwise acutely negative except as in the [place]. 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 ALENDRONATE (FOSAMAX) 70 MG TABLET Take 70 mg by mouth once a week. AMLODIPINE (NORVASC) 2.5 MG TABLET Take 2.5 mg by mouth in the morning. BIOFLAVONOID PRODUCTS (ALANA-C) TABLET Every 24 hours. CALCIUM CARBONATE (TUMS) 500 MG CHEWABLE TABLET Chew 1 tablet (500 mg) daily. Do not start before February 15, 2023. CYANOCOBALAMIN (VITAMIN B-12) 1000 MCG/ML INJECTION 1 mL intramuscularly once a month FAMOTIDINE (PEPCID) 20 MG TABLET Take 1 tablet (20 mg) by mouth 2 times daily. FLUTICASONE (FLONASE) 50 MCG/ACT NASAL SPRAY Administer 1 spray into each nostril daily as needed. FOLIC ACID (FOLVITE) 1 MG TABLET Take 1 tablet (1 mg) by mouth daily. Do not start before April 16, 2023. IPRATROPIUM-ALBUTEROL (DUO-NEB) 0.5-2.5 MG/3 ML NEBULIZER SOLUTION every 6 hours. KETOCONAZOLE (NIZORAL) 2 % SHAMPOO EVERY THREE DAYS LEVOTHYROXINE (SYNTHROID, LEVOXYL) 50 MCG TABLET TAKE 1 TABLET BY MOUTH DAILY LOSARTAN (COZAAR) 100 MG TABLET Take 1 tablet (100 mg) by mouth daily. Do not start before February 15, 2023. MAGNESIUM OXIDE (MAG-OX) 400 (240 MG) MG TABLET Take 2 tablets (800 mg) by mouth 2 times daily. NIACIN 100 MG TABLET Every 24 hours. NICOTINE (NICODERM, STEP 1) 21 MG/24HR PATCH Place 1 patch on the skin daily. NITROGLYCERIN (NITROSTAT) 0.4 MG SL TABLET 1 tab(s) sublingually every 5 minutes x 3 doses prn OLMESARTAN (BENICAR) 40 MG TABLET Take 40 mg by mouth daily. PANTOPRAZOLE (PROTONIX) 40 MG EC TABLET Take 1 tablet (40 mg) by mouth in the morning and 1 tablet (40 mg) in the evening. Take before meals. Do not crush, chew, or split.. POTASSIUM CHLORIDE ER (MICRO-K) 10 MEQ ER CAPSULE Take 10 mEq by mouth in the morning. SODIUM CHLORIDE 1 G TABLET Take 1 tablet (1 g) by mouth in the morning and 1 tablet (1 g) in the evening. Take with meals. TAMSULOSIN (FLOMAX) 0.4 MG 24 HR CAPSULE Take 0.4 mg by mouth daily. THIAMINE (VITAMIN B-1) 100 MG TABLET Take 1 tablet (100 mg) by mouth daily. Do not start before April 16, 2023. ALLERGIES Allopurinol, Codeine, and Penicillin g FAMILY HISTORY Family History Problem Relation Name Age of Onset Depression Mother Depression Maternal Grandmother SOCIAL HISTORY Social History Socioeconomic History Marital status: Tobacco Use Smoking status: Every Day Types: Cigars Smokeless tobacco: Former Vaping Use Vaping Use: Every day Substances: CBD, canabis Devices: Disposable Substance and Sexual Activity Alcohol use: Yes Alcohol/week: 105.0 standard drinks of alcohol Types: 105 Cans of beer per week Comment: 15-18 beers/day Drug use: Yes Types: Marijuana Comment: daily Social Determinants of Health Financial Resource Strain: High Risk (12/07/2023) Overall Financial Resource Strain (CARDIA) Difficulty of Paying Living Expenses: Hard Food Insecurity: No Food Insecurity (12/07/2023) Hunger Vital Sign Worried About Running Out of Food in the Last Year: Never true Ran Out of Food in the Last Year: Never true Transportation Needs: No Transportation Needs (10/21/2023) PRAPARE - Transportation Lack of Transportation (Medical): No Lack of Transportation (Non-Medical): No Physical Activity: Inactive (04/03/2023) Exercise Vital Sign Days of Exercise per Week: 0 days Minutes of Exercise per Session: 0 min Stress: No Stress Concern Present (04/03/2023) [employer] [place] [employer] - Occupational Stress Questionnaire Feeling of Stress : Not at all Social Connections: Socially Isolated (12/07/2023) Social Connection and Isolation Panel [NHANES] Frequency of Communication with Friends and Family: Never Frequency of Social Gatherings with Friends and Family: Never Attends Amish Services: Never Active Member of Clubs or Organizations: No Marital Status: Living with partner Intimate Partner Violence: Not At Risk (10/21/2023) Humiliation, Afraid, Rape, and Kick questionnaire Fear of Current or Ex-Partner: No Emotionally Abused: No Physically Abused: No Sexually Abused: No Housing Stability: Low Risk (12/07/2023) Housing Stability Vital Sign Unable to Pay for Housing in the Last Year: No Number of Places Lived in the Last Year: 1 Unstable Housing in the Last Year: No Recent Concern: Housing Stability - High Risk (10/21/2023) Housing Stability Vital Sign Unable to Pay for Housing in the Last Year: Yes Number of Places Lived in the Last Year: 1 Unstable Housing in the Last Year: No SCREENINGS PHYSICAL EXAM ED Triage Vitals Temp Pulse Resp BP -- -- -- -- SpO2 Temp src Heart Rate Source Patient Position -- -- -- -- BP Location FiO2 (%) -- -- CONSTITUTIONAL: AOx4, no apparent distress, appears stated age, tremulous HEAD: normocephalic, atraumatic EYES: PERRL, EOMI ENT: moist mucous membranes, uvula midline NECK: supple, symmetric BACK: symmetric LUNGS: clear to auscultation bilaterally CARDIOVASCULAR: Tachycardic rate and regular rhythm ABDOMEN: soft, mild epigastric tenderness to palpation, non-distended with normal active bowel sounds : deferred NEUROLOGIC: MAEx4, no focal sensory or motor deficits MUSCULOSKELETAL: no clubbing, cyanosis or edema SKIN: no exposed rash DIAGNOSTIC RESULTS Procedures/EKG: EKG was reviewed by myself. Physician EKG interpretation can be found in [facility] RADIOLOGY (Per Emergency Physician): Interpretation per the Radiologist below, if available at the time of this note: No orders to display ED BEDSIDE ULTRASOUND: Performed by ED Physician - none LABS: Labs Reviewed SARS-COV-2 ANTIGEN - Abnormal Result Value SARS-CoV-2 Antigen Positive (*) CBC WITH AUTO DIFFERENTIAL - Abnormal Auto WBC 7.4 RBC 3.83 (*) Hemoglobin 12.7 (*) Hematocrit 34.5 (*) MCV 90.1 MCH 33.2 MCHC 36.8 (*) RDW 13.6 Platelets 73 (*) MPV 9.4 nRBC 0.0 Neutrophils Relative 76.6 Lymphocytes Relative 19.8 Monocytes Relative 2.4 (*) Eosinophils Relative 0.4 Basophils Relative 0.5 Immature Grans % 0.3 Neutrophils Absolute 5.7 Lymphocytes Absolute 1.5 Monocytes Absolute 0.2 Eosinophils Absolute 0.0 Basophils Absolute 0.0 Immature Grans Absolute 0.0 COMPREHENSIVE METABOLIC PANEL - Abnormal SODIUM 140 POTASSIUM 4.0 CHLORIDE 109 (*) CARBON DIOXIDE 17 (*) ANION GAP 14 (*) UREA NITROGEN 11 CREATININE 0.90 GLUCOSE 133 (*) CALCIUM 9.6 AST (SGOT) 58 (*) ALT 29 ALKALINE PHOSPHATASE 86 ALBUMIN 4.7 BILIRUBIN, TOTAL 1.8 (*) TOTAL PROTEIN 8.1 eGFR >90.0 COMPLETE URINALYSIS - Abnormal Color, Urine Light Yellow Clarity, Urine Clear pH, Urine 5.5 Leukocytes, Urine Negative Nitrite, Urine Negative Protein, Urine 20 (*) Glucose, Urine Normal Bilirubin, Urine Negative Ketones, Urine Trace (*) Urobilinogen, Urine Normal Blood, Urine Negative Volume, Urine 12 mL RBC, Urine Negative WBC, Urine Negative Squamous Epithelial, Urine Negative Bacteria, Urine Few (*) Amorphous Urates, Urine Few (*) SPECIFIC GRAVITY OF URINE (NUMERIC) 1.014 LIPASE - Normal LIPASE 124 ETHANOL - Normal ETHANOL IN SER/PLAS <0.010 Narrative: NOTE: This result is for medical treatment only. Analysis performed using non-forensic procedures. COMPLETE URINALYSIS WITH REFLEX TO CULTURE Narrative: The following orders were created for panel order Urinalysis Complete with reflex to Culture. Procedure Abnormality Status --------- ------ Complete Urinalysis[[id number]] Abnormal Final result Please view results for these tests on the individual orders. DRUGS OF ABUSE AMPHETAMINE SCREEN Negative BARBITURATES SCREEN Negative BENZODIAZEPINE SCREEN Negative COCAINE METAB. SCREEN Negative METHADONE SCREEN Negative OPIATES SCREEN Positive OXYCODONE SCREEN Negative PHENCYCLIDINE SCREEN Negative Narrative: The expected value for all of the drugs listed above is Negative. The following drugs or drug groups have been screened for by Immunoassay at the following thresholds: Amphetamine class (1000 ng/mL) Barbiturates (200 ng/mL) Benzodiazepines (200 ng/mL) Cocaine (300 ng/mL) Methadone (300 ng/mL) Opiates (300 ng/mL) Oxycodone (100 ng/mL) PCP (25 ng/mL) NOTE: These results are for medical treatment only. Analysis performed using non-forensic procedures. POSITIVE results are NOT confirmed by a more specific alternative method unless requested. If confirmation is needed, request confirmation under separate order. All other labs were within normal range or not returned as of this dictation. EMERGENCY DEPARTMENT COURSE and DIFFERENTIAL DIAGNOSIS/MDM: Vitals: Vitals: 01/15/24 1237 01/15/24 1342 01/15/24 1345 01/15/24 1438 BP: (!) 171/105 (!) 172/102 (!) 172/102 (!) 163/102 BP Location: Right arm Patient Position: Sitting Pulse: (!) 113 (!) 119 (!) 118 (!) 120 Resp: 23 Temp: TempSrc: SpO2: 99% Weight: EMERGENCY DEPARTMENT COURSE and DIFFERENTIAL DIAGNOSIS/MDM: Vitals: Vitals: 01/15/24 1237 01/15/24 1342 01/15/24 1345 01/15/24 1438 BP: (!) 171/105 (!) 172/102 (!) 172/102 (!) 163/102 BP Location: Right arm Patient Position: Sitting Pulse: (!) 113 (!) 119 (!) 118 (!) 120 Resp: 23 Temp: TempSrc: SpO2: 99% Weight: The patient presented with a chief complaint of tremulousness feels like he is withdrawing from alcohol, last drink 6 PM. Patient also with mild epigastric pain. Does have a history of alcoholic pancreatitis. Patient also would like to go through detox. The differential diagnosis associated with this patient's presentation includes alcohol withdrawal, pancreatitis, COVID. Our workup consisted of ordering/reviewing abdominal lab work which are near his baseline. No elevation in lipase. Patient feeling improved after Ativan Zofran and fluids. As he is requesting detox, urine drug screen COVID ordered, was positive for opiates. Patient denies illicit drug abuse. Patient also found to be COVID-19 positive. As he is COVID-positive, will admit the patient medically with a consultation to detox. Oral phenobarbital administered after the patient's nausea improved. Admitted to [facility]. Diagnoses as of 01/15/24 1506 Alcohol withdrawal syndrome without complication (HCC) COVID-19 Diagnostic tests considered but not performed: CT scan of the abdomen pelvis however pain rather benign and resolving as his withdrawal symptoms improved External records reviewed: Inpatient notes discharge summary reviewed from 10/27/2023 the patient was admitted for alcohol withdrawal and pancreatitis Diagnostics interpreted by me: none Discussions with other clinicians: Admitting team ACS Chronic conditions impacting care: Hepatitis C Social determinants of health affecting care: Alcoholism ED Medications managed: Medications ondansetron (Zofran) injection 4 mg (4 mg IntraVENous Given 01/15/24 1051) LORazepam (Ativan) injection 2 mg (2 mg IntraVENous Given 01/15/24 1051) sodium chloride 0.9 % bolus 1,000 mL (0 mL IntraVENous Stopped 01/15/24 1229) PHENobarbital (Luminal) tablet 97.2 mg (97.2 mg Oral Given 01/15/24 1233) CONSULTS: None PROCEDURES: Unless otherwise noted below, none Procedures Patients symptoms are consistent with sepsis, severe sepsis, or septic shock (If yes use ".sepsiscoremeasure"): FINAL IMPRESSION 1. Alcohol withdrawal syndrome without complication (HCC) 2. COVID-19 DISPOSITION/PLAN admit PATIENT REFERRED TO: No follow-up provider specified. DISCHARGE MEDICATIONS: New Prescriptions No medications on file (Comment: Please note this report has been produced using speech recognition software and may contain errors related to that system including errors in grammar, punctuation, and spelling, as well as words and phrases that may be inappropriate. If there are any questions or concerns please feel free to contact the dictating provider for clarification.) Daniel Ewing DO (electronically signed) Emergency Medicine Provider Daniel Ewing DO 01/15/24 1510 Patient arrived from home via squad to room 6. Patient transferred from [facility] to ED bed by medics without difficulty. Patient called squad for generalized weakness and alcohol withdrawal. Patient actively coughing, vomiting and shaking upon arrival. Patient admits to drinking 18 beers yesterday but has had nothing today because he feels ill. Patient also complains of headache and diarrhea. Patient placed on acidizer and CIWA done upon arrival. Seizure pads placed on bed. documented in this encounter [facility] 01-15-2024 Emergency department Note RN spoke Christie per patient request and asked her to bring him glasses and his cane, Christie acknowledged and thanked RN for the call. Aubree Ratliff RN 01/15/24 1322 [facility] 01-15-2024 Note NOTE: This result is for medical treatment only. Analysis performed using non-forensic procedures. [facility] 01-15-2024 Emergency department Note Patient declined anything to eat or drink at this time. Call light within reach Pratibha Okeefe RN 01/15/24 1241 [facility] 01-15-2024 Emergency department Triage note Patient arrived from home via squad to room 6. Patient transferred from [facility] to ED bed by medics without difficulty. Patient called squad for generalized weakness and alcohol withdrawal. Patient actively coughing, vomiting and shaking upon arrival. Patient admits to drinking 18 beers yesterday but has had nothing today because he feels ill. Patient also complains of headache and diarrhea. Patient placed on acidizer and CIWA done upon arrival. Seizure pads placed on bed. [facility] 01-15-2024 Physician Emergency department Note EMERGENCY DEPARTMENT ENCOUNTER Pt Name: Woody Ni Birthdate 1960 Date of evaluation: 01/15/2024 ED Provider: Daniel Ewing DO CHIEF COMPLAINT Chief Complaint Patient presents with Vomiting Withdrawal Alcohol HISTORY OF PRESENT ILLNESS (Location/Symptom, Timing/Onset, Context/Setting, Quality, Duration, Modifying Factors, Severity) Note limiting factors. I wore appropriate PPE for the entirety of this encounter. HPI Woody Ni is a 63 y.o. male who presents to the emergency department with nausea vomiting diarrhea upper abdominal pain. Also feeling tremulous like he is going through alcohol withdrawals. Patient drinks 18 beers a day. Last drink was around 6 PM last night. Woke up this morning with upper abdominal pain nausea and vomiting and tremulousness prompting him to call 911. Admitted in October with pancreatitis and alcohol withdrawals. Has never had alcohol withdrawal seizure. Denies any other illicit drug use. No fevers chills chest pain shortness of breath. Denies any urinary symptoms. Nursing Notes were reviewed. REVIEW OF SYSTEMS 14 systems reviewed and otherwise acutely negative except as in the [place]. 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 ALENDRONATE (FOSAMAX) 70 MG TABLET Take 70 mg by mouth once a week. AMLODIPINE (NORVASC) 2.5 MG TABLET Take 2.5 mg by mouth in the morning. BIOFLAVONOID PRODUCTS (ALANA-C) TABLET Every 24 hours. CALCIUM CARBONATE (TUMS) 500 MG CHEWABLE TABLET Chew 1 tablet (500 mg) daily. Do not start before February 15, 2023. CYANOCOBALAMIN (VITAMIN B-12) 1000 MCG/ML INJECTION 1 mL intramuscularly once a month FAMOTIDINE (PEPCID) 20 MG TABLET Take 1 tablet (20 mg) by mouth 2 times daily. FLUTICASONE (FLONASE) 50 MCG/ACT NASAL SPRAY Administer 1 spray into each nostril daily as needed. FOLIC ACID (FOLVITE) 1 MG TABLET Take 1 tablet (1 mg) by mouth daily. Do not start before April 16, 2023. IPRATROPIUM-ALBUTEROL (DUO-NEB) 0.5-2.5 MG/3 ML NEBULIZER SOLUTION every 6 hours. KETOCONAZOLE (NIZORAL) 2 % SHAMPOO EVERY THREE DAYS LEVOTHYROXINE (SYNTHROID, LEVOXYL) 50 MCG TABLET TAKE 1 TABLET BY MOUTH DAILY LOSARTAN (COZAAR) 100 MG TABLET Take 1 tablet (100 mg) by mouth daily. Do not start before February 15, 2023. MAGNESIUM OXIDE (MAG-OX) 400 (240 MG) MG TABLET Take 2 tablets (800 mg) by mouth 2 times daily. NIACIN 100 MG TABLET Every 24 hours. NICOTINE (NICODERM, STEP 1) 21 MG/24HR PATCH Place 1 patch on the skin daily. NITROGLYCERIN (NITROSTAT) 0.4 MG SL TABLET 1 tab(s) sublingually every 5 minutes x 3 doses prn OLMESARTAN (BENICAR) 40 MG TABLET Take 40 mg by mouth daily. PANTOPRAZOLE (PROTONIX) 40 MG EC TABLET Take 1 tablet (40 mg) by mouth in the morning and 1 tablet (40 mg) in the evening. Take before meals. Do not crush, chew, or split.. POTASSIUM CHLORIDE ER (MICRO-K) 10 MEQ ER CAPSULE Take 10 mEq by mouth in the morning. SODIUM CHLORIDE 1 G TABLET Take 1 tablet (1 g) by mouth in the morning and 1 tablet (1 g) in the evening. Take with meals. TAMSULOSIN (FLOMAX) 0.4 MG 24 HR CAPSULE Take 0.4 mg by mouth daily. THIAMINE (VITAMIN B-1) 100 MG TABLET Take 1 tablet (100 mg) by mouth daily. Do not start before April 16, 2023. ALLERGIES Allopurinol, Codeine, and Penicillin g FAMILY HISTORY Family History Problem Relation Name Age of Onset Depression Mother Depression Maternal Grandmother SOCIAL HISTORY Social History Socioeconomic History Marital status: Tobacco Use Smoking status: Every Day Types: Cigars Smokeless tobacco: Former Vaping Use Vaping Use: Every day Substances: CBD, canabis Devices: Disposable Substance and Sexual Activity Alcohol use: Yes Alcohol/week: 105.0 standard drinks of alcohol Types: 105 Cans of beer per week Comment: 15-18 beers/day Drug use: Yes Types: Marijuana Comment: daily Social Determinants of Health Financial Resource Strain: High Risk (12/07/2023) Overall Financial Resource Strain (CARDIA) Difficulty of Paying Living Expenses: Hard Food Insecurity: No Food Insecurity (12/07/2023) Hunger Vital Sign Worried About Running Out of Food in the Last Year: Never true Ran Out of Food in the Last Year: Never true Transportation Needs: No Transportation Needs (10/21/2023) PRAPARE - Transportation Lack of Transportation (Medical): No Lack of Transportation (Non-Medical): No Physical Activity: Inactive (04/03/2023) Exercise Vital Sign Days of Exercise per Week: 0 days Minutes of Exercise per Session: 0 min Stress: No Stress Concern Present (04/03/2023) [employer] [place] [employer] - Occupational Stress Questionnaire Feeling of Stress : Not at all Social Connections: Socially Isolated (12/07/2023) Social Connection and Isolation Panel [NHANES] Frequency of Communication with Friends and Family: Never Frequency of Social Gatherings with Friends and Family: Never Attends [employer] Services: Never Active Member of Clubs or Organizations: No Marital Status: Living with partner Intimate Partner Violence: Not At Risk (10/21/2023) Humiliation, Afraid, Rape, and Kick questionnaire Fear of Current or Ex-Partner: No Emotionally Abused: No Physically Abused: No Sexually Abused: No Housing Stability: Low Risk (12/07/2023) Housing Stability Vital Sign Unable to Pay for Housing in the Last Year: No Number of Places Lived in the Last Year: 1 Unstable Housing in the Last Year: No Recent Concern: Housing Stability - High Risk (10/21/2023) Housing Stability Vital Sign Unable to Pay for Housing in the Last Year: Yes Number of Places Lived in the Last Year: 1 Unstable Housing in the Last Year: No SCREENINGS PHYSICAL EXAM ED Triage Vitals Temp Pulse Resp BP -- -- -- -- SpO2 Temp src Heart Rate Source Patient Position -- -- -- -- BP Location FiO2 (%) -- -- CONSTITUTIONAL: AOx4, no apparent distress, appears stated age, tremulous HEAD: normocephalic, atraumatic EYES: PERRL, EOMI ENT: moist mucous membranes, uvula midline NECK: supple, symmetric BACK: symmetric LUNGS: clear to auscultation bilaterally CARDIOVASCULAR: Tachycardic rate and regular rhythm ABDOMEN: soft, mild epigastric tenderness to palpation, non-distended with normal active bowel sounds : deferred NEUROLOGIC: MAEx4, no focal sensory or motor deficits MUSCULOSKELETAL: no clubbing, cyanosis or edema SKIN: no exposed rash DIAGNOSTIC RESULTS Procedures/EKG: EKG was reviewed by myself. Physician EKG interpretation can be found in [facility] RADIOLOGY (Per Emergency Physician): Interpretation per the Radiologist below, if available at the time of this note: No orders to display ED BEDSIDE ULTRASOUND: Performed by ED Physician - none LABS: Labs Reviewed SARS-COV-2 ANTIGEN - Abnormal Result Value SARS-CoV-2 Antigen Positive (*) CBC WITH AUTO DIFFERENTIAL - Abnormal Auto WBC 7.4 RBC 3.83 (*) Hemoglobin 12.7 (*) Hematocrit 34.5 (*) MCV 90.1 MCH 33.2 MCHC 36.8 (*) RDW 13.6 Platelets 73 (*) MPV 9.4 nRBC 0.0 Neutrophils Relative 76.6 Lymphocytes Relative 19.8 Monocytes Relative 2.4 (*) Eosinophils Relative 0.4 Basophils Relative 0.5 Immature Grans % 0.3 Neutrophils Absolute 5.7 Lymphocytes Absolute 1.5 Monocytes Absolute 0.2 Eosinophils Absolute 0.0 Basophils Absolute 0.0 Immature Grans Absolute 0.0 COMPREHENSIVE METABOLIC PANEL - Abnormal SODIUM 140 POTASSIUM 4.0 CHLORIDE 109 (*) CARBON DIOXIDE 17 (*) ANION GAP 14 (*) UREA NITROGEN 11 CREATININE 0.90 GLUCOSE 133 (*) CALCIUM 9.6 AST (SGOT) 58 (*) ALT 29 ALKALINE PHOSPHATASE 86 ALBUMIN 4.7 BILIRUBIN, TOTAL 1.8 (*) TOTAL PROTEIN 8.1 eGFR >90.0 COMPLETE URINALYSIS - Abnormal Color, Urine Light Yellow Clarity, Urine Clear pH, Urine 5.5 Leukocytes, Urine Negative Nitrite, Urine Negative Protein, Urine 20 (*) Glucose, Urine Normal Bilirubin, Urine Negative Ketones, Urine Trace (*) Urobilinogen, Urine Normal Blood, Urine Negative Volume, Urine 12 mL RBC, Urine Negative WBC, Urine Negative Squamous Epithelial, Urine Negative Bacteria, Urine Few (*) Amorphous Urates, Urine Few (*) SPECIFIC GRAVITY OF URINE (NUMERIC) 1.014 LIPASE - Normal LIPASE 124 ETHANOL - Normal ETHANOL IN SER/PLAS <0.010 Narrative: NOTE: This result is for medical treatment only. Analysis performed using non-forensic procedures. COMPLETE URINALYSIS WITH REFLEX TO CULTURE Narrative: The following orders were created for panel order Urinalysis Complete with reflex to Culture. Procedure Abnormality Status --------- ------ Complete Urinalysis[[id number]] Abnormal Final result Please view results for these tests on the individual orders. DRUGS OF ABUSE AMPHETAMINE SCREEN Negative BARBITURATES SCREEN Negative BENZODIAZEPINE SCREEN Negative COCAINE METAB. SCREEN Negative METHADONE SCREEN Negative OPIATES SCREEN Positive OXYCODONE SCREEN Negative PHENCYCLIDINE SCREEN Negative Narrative: The expected value for all of the drugs listed above is Negative. The following drugs or drug groups have been screened for by Immunoassay at the following thresholds: Amphetamine class (1000 ng/mL) Barbiturates (200 ng/mL) Benzodiazepines (200 ng/mL) Cocaine (300 ng/mL) Methadone (300 ng/mL) Opiates (300 ng/mL) Oxycodone (100 ng/mL) PCP (25 ng/mL) NOTE: These results are for medical treatment only. Analysis performed using non-forensic procedures. POSITIVE results are NOT confirmed by a more specific alternative method unless requested. If confirmation is needed, request confirmation under separate order. All other labs were within normal range or not returned as of this dictation. EMERGENCY DEPARTMENT COURSE and DIFFERENTIAL DIAGNOSIS/MDM: Vitals: Vitals: 01/15/24 1237 01/15/24 1342 01/15/24 1345 01/15/24 1438 BP: (!) 171/105 (!) 172/102 (!) 172/102 (!) 163/102 BP Location: Right arm Patient Position: Sitting Pulse: (!) 113 (!) 119 (!) 118 (!) 120 Resp: 23 Temp: TempSrc: SpO2: 99% Weight: EMERGENCY DEPARTMENT COURSE and DIFFERENTIAL DIAGNOSIS/MDM: Vitals: Vitals: 01/15/24 1237 01/15/24 1342 01/15/24 1345 01/15/24 1438 BP: (!) 171/105 (!) 172/102 (!) 172/102 (!) 163/102 BP Location: Right arm Patient Position: Sitting Pulse: (!) 113 (!) 119 (!) 118 (!) 120 Resp: 23 Temp: TempSrc: SpO2: 99% Weight: The patient presented with a chief complaint of tremulousness feels like he is withdrawing from alcohol, last drink 6 PM. Patient also with mild epigastric pain. Does have a history of alcoholic pancreatitis. Patient also would like to go through detox. The differential diagnosis associated with this patient's presentation includes alcohol withdrawal, pancreatitis, COVID. Our workup consisted of ordering/reviewing abdominal lab work which are near his baseline. No elevation in lipase. Patient feeling improved after Ativan Zofran and fluids. As he is requesting detox, urine drug screen COVID ordered, was positive for opiates. Patient denies illicit drug abuse. Patient also found to be COVID-19 positive. As he is COVID-positive, will admit the patient medically with a consultation to detox. Oral phenobarbital administered after the patient's nausea improved. Admitted to [facility]. Diagnoses as of 01/15/24 1506 Alcohol withdrawal syndrome without complication (HCC) COVID-19 Diagnostic tests considered but not performed: CT scan of the abdomen pelvis however pain rather benign and resolving as his withdrawal symptoms improved External records reviewed: Inpatient notes discharge summary reviewed from 10/27/2023 the patient was admitted for alcohol withdrawal and pancreatitis Diagnostics interpreted by me: none Discussions with other clinicians: Admitting team ACS Chronic conditions impacting care: Hepatitis C Social determinants of health affecting care: Alcoholism ED Medications managed: Medications ondansetron (Zofran) injection 4 mg (4 mg IntraVENous Given 01/15/24 1051) LORazepam (Ativan) injection 2 mg (2 mg IntraVENous Given 01/15/24 1051) sodium chloride 0.9 % bolus 1,000 mL (0 mL IntraVENous Stopped 01/15/24 1229) PHENobarbital (Luminal) tablet 97.2 mg (97.2 mg Oral Given 01/15/24 1233) CONSULTS: None PROCEDURES: Unless otherwise noted below, none Procedures Patients symptoms are consistent with sepsis, severe sepsis, or septic shock (If yes use ".sepsiscoremeasure"): FINAL IMPRESSION 1. Alcohol withdrawal syndrome without complication (HCC) 2. COVID-19 DISPOSITION/PLAN admit PATIENT REFERRED TO: No follow-up provider specified. DISCHARGE MEDICATIONS: New Prescriptions No medications on file (Comment: Please note this report has been produced using speech recognition software and may contain errors related to that system including errors in grammar, punctuation, and spelling, as well as words and phrases that may be inappropriate. If there are any questions or concerns please feel free to contact the dictating provider for clarification.) Daniel Ewing DO (electronically signed) Emergency Medicine Provider Daniel Ewing DO 01/15/24 1510 [facility] 12-25-2023 Note HNO ID: [id number] Author: CURTIS ISABEL RT(R) Service: ? Author Type: Concrete Building Assembler Type: Progress Notes Filed: 12/25/2023 14:59 Note Text: Radiology Service Progress Note DATE OF SERVICE: December 25, 2023 TIME: 2:59 PM PATIENT IDENTITY VERIFICATION COMPLETED USING TWO (2) STANDARD IDENTIFIERS: Name and Date of confirmed by patient verbally. FALL SCREENING: Has the patient had 2 falls in the last year or 1 fall with injury or currently using an Ambulatory Assistive Device (Walker, Cane, Wheelchair, Crutches, etc.)? No PATIENT GENDER DATA: Male PATIENT RELEVANT IMPLANT DATA REVIEWED: Yes PATIENT PRESENTS WITH AN IMPLANTABLE OR ATTACHED FIRER DIESEL LOCOMOTIVE: No ALLERGIES: Reviewed and unchanged CONTRAST ALLERGY: NO. EXAM: CT -CONTRAST INDUCED NEPHROPATHY RISK FACTORS: Patient age > 60 years CREATININE: Creatinine Date Value Ref Range Status 12/25/2023 0.78 0.73 - 1.22 mg/dL Final 07/08/2022 1.09 0.73 - 1.22 mg/dL Final 06/19/2017 0.86 0.70 - 1.40 mg/dL Final Estimated Glomerular Filtration Rate Date Value Ref Range Status 12/25/2023 100 >=60 mL/min/1.73m? Final Comment: Estimated Glomerular Filtration Rate (eGFR) is calculated using the 2020 CKD-EPI creatinine equation. This equation utilizes serum creatinine, sex, and age as parameters. The creatinine assay has traceable calibration to isotope dilution-mass spectrometry. Refer to KDIGO guidelines for clinical interpretation. In patients with unstable renal function, e.g. those with acute kidney injury, the eGFR may not accurately reflect actual GFR. eGFR- Date Value Ref Range Status 06/19/2017 >60 Final P.O.C.T. RESULTS: POC done: Yes, See Lab Tab December 25, 2023 TREATMENT: N/A PERIPHERAL IV DATA: Ambulatory: A peripheral IV was started in the Left antecubital site with a Angio cath: 22 gauge. RADIOLOGY DEPARTMENT: CT; Exam(s) Completed: Abdomen/Pelvis SIGNATURE: RT Carly(R) PATIENT NAME: Woody Ni DATE: December 25, 2023 TIME: 2:[address] [facility] 12-24-2023 Note HNO ID: [id number] Author: MUNIRA STALEY PA-C Service: ? Author Type: Physician Share Holder Type: Progress Notes Filed: 12/24/2023 12:52 Note Text: CHIEF COMPLAINT: Patient presents with: Hospital F/U: ER 10/20/23 HPI Accompanied by significant other Kingsley Ni is a 63 year old male with PMHx positive for DM, HTN, HLD here today for Hospital F/U (ER 10/20/23). Seen last in 2021 for h/o Hep C, cirrhosis, EtOH abuse. Pt performed labs, got recommended EGD through [facility]. Recently admitted at [facility] 10/2023 due to alcohol induced pancreatitis, wanting to quit EtOH. Hospital course reviewed and copied/pasted below. No imaging performed. Following with [facility] addition medicine program to d/c alcohol. Currently drinking 12-18 beers per day. Admits to generalized abdominal pain, 10/10, increased acid indigestion on a regular basis, intermittent episodes of emesis daily. No longer taking previously prescribed Protonix. Bms are multiple per day, loose to watery, no blood/black coloring. Weight has been fluctuating at about 10 lbs. Low grade fevers at home. [facility] Admission 10/2023 HOSPITAL COURSE: Woody Ni is a 63 y.o. male who presents to the emergency department with chief complaint of nausea and vomiting associated with upper abdominal pain. Patient has had nausea and vomiting for the past few days. The only thing he is drinking his alcohol. He has history of alcohol abuse. He has history of cirrhosis. He states he would like to quit drinking. Complains of persistent nausea and vomiting. Complains of upper abdominal discomfort. Denies chest pain or shortness of breath. States he received a phone call last week on outpatient laboratory studies done by his doctor that were abnormal but he does not know what the abnormal labs were. In the ER he was diagnosed with acute pancreatitis , his lipase was elevated he is being admitted for management and treatment . He was treated with iv fluids and pain meds. Addiction med saw him for etoh withdrawal and he was on phenobarbital. I had palliative see him as well because he was talking about just wanting to . He did speak with them but remains full code. His labs had improved he was eating a regular diet and [facility] 2021 Woody Ni is a 62 year old male who presents for Nausea AND Vomiting (Gas, stomach upset). Has h/o Hep C, cirrhosis, pt states this never required treatment. Currently drinking four beers a day, has been drinking this for years. Takes Lasix 20 mg PRN Has been on protonix for years, no emesis for the past two weeks. Bms are solely diarrhea never formed for the past 2 mos, no blood. Lost 40 lbs unintentionally in the past four mos. Denies abd pain, fevers, current emesis/nausea. CT abd 04/2022 nonobstructing right sided kidney stone, mural stomach thickening Current Outpatient Medications Medication Sig LIDOCAINE VISCOUS 2 % solution PROAIR HFA 90 mcg/actuation inhaler INHALE TWO PUFFS BY MOUTH FOUR TIMES DAILY ketoconazole (NIZORAL) 2 % shampoo pantoprazole DR (PROTONIX) 40 mg tablet albuterol (PROVENTIL) 2.5 mg /3 mL (0.083 %) nebulizer solution Use 2.5 mg via nebulizer as needed. alendronate (FOSAMAX) 70 mg tablet Take 70 mg by mouth once each week. amLODIPine (NORVASC) 2.5 mg tablet Take 2.5 mg by mouth once daily. TRUE METRIX GLUCOSE TEST STRIP test strip clotrimazole-betamethasone (LOTRISONE) cream COLCRYS 0.6 mg tablet Take 0.6 mg by mouth three times daily. fluticasone (FLONASE) 50 mcg/actuation nasal spray Use 1 [place] in the nose once daily as needed. furosemide (LASIX) 20 mg tablet Take 20 mg by mouth once daily as needed. ipratropium (ATROVENT) 0.02 % nebulizer solution TRUEPLUS LANCETS 30 gauge misc levothyroxine (SYNTHROID) 100 mcg tablet Take 100 mcg by mouth once daily. metFORMIN (GLUCOPHAGE) 500 mg tablet Take 1,000 mg by mouth daily with breakfast. ondansetron (ZOFRAN) 4 mg tablet Take 4 mg by mouth as needed. oxyCODONE IR (ROXICODONE) 10 mg tab Take 10 mg by mouth four times daily. potassium chloride SR (MICRO-K) 10 mEq CR capsule Take 10 mEq by mouth once daily. pravastatin (PRAVACHOL) 40 mg tablet Take 40 mg by mouth once daily. No current facility-administered medications for this visit. ALLERGIES Allergen Reactions Allopurinol Other: See Comments Breaks out in blisters Penicillin Swelling Social History Tobacco Use Smoking status: Former Types: Cigars Smokeless tobacco: Never Vaping Use Vaping Use: Never used Substance Use Topics Alcohol use: No Comment: Quit drinking Drug use: No PAST MEDICAL HISTORY Diagnosis Date Anemia, iron deficiency Arthritis Asthma Cirrhosis (HCC) Colonic polyp Diabetes (HCC) Diverticula of colon Esophageal varices (HCC) Essential hypertension Hepatitis HLD (hyperlipidemia) Sleep apnea Thyroid disease PAST SURGICAL HISTORY Procedure Laterality (more content not included)... [facility] 12-07-2023 History of Present illness Narrative Outpatient Behavioral Health Initial Assessment Start Time: 856, End Time: [address]8 [address] a [address] Appointed Guardian? None Does patient have a Durable Power of Search Engine Optimization Consultant? Yes (Name) (Kingsley Murdock only) Does the patient have an Advanced Directive? If Yes, copy received? Patient would like information No Screening Tool Score Comment (required for each screening tool) PHQ-9 23 (PHQ-2: 6) severe NEMESIO-7 21 severe AUDIT-C 12 significant DAST-10 (!) 8 significant Life Events Checklist Positive 8 items selected PCL-5 0 insignificant Language Preferred Language: Portuguese Languages Spoken: Portuguese Presenting Problem(s) Reason for visit as reported by patient Chief Complaint Patient presents with Alcohol Problem Referral Information Referral source as reported by patient: Emergency Department (Comment Name) ([facility]) History of presenting problem(s) (Onset, duration, precipitating factors, why person is here now, contributing stressors): Pt reported problem drinking at age 13. He stated he's been drinking over 50 years. He stated he has cirrhosis, HEP C, thyroid disease, kidney disease. He stated, "They took my gall bladder out. My stomach kills me all the time." Pt reported drinking 18+ beer daily. Current Environment/Living Situation Housing Stability In the last 12 months, was there a time when you were not able to pay the mortgage or rent on time?: No In the last 12 months, how many places have you lived?: 1 In the last 12 months, was there a time when you did not have a steady place to sleep or slept in a long-term (including now)?: No Patient feels safe at home: Yes Living Arrangements: Spouse/significant other Type of Residence: Private residence Current Family Circumstances (include family involvement, level of family support for treatment, bereavement concerns) Support Systems: Spouse/significant other, Family members Lack of Caregiver Support: No Childhood/Adolescent History (note any significant developmental issues, history of abuse/neglect, history of emotional or behavioral concerns, what was it like growing up in your family, etc.): Pt reported, "Played baseball, football, basketball." Pt reported his dad worked everyday and his mother took care of them. He stated they worked in a garden. He stated he used to aggravate his sister's horse. Family of Origin History Parents' Marital Status: If parents never each other, which parent was primary caregiver? How does patient describe relationship with parents: "Great." He stated he misses his mother. Pt stated his mother passed Jun 2010. How were drugs/alcohol used in your family growing up?: Pt stated his uncle was the only one who drank. Uncle got him into it. Relationship History Describe history of significant partner relationships: (describe history of marriages/other significant romantic relationships): Pt reported he's been in a committed relationship for "too long." Number of Children: 1 Ages: Pt has one adult child, 3 "step" kids but all are adult; 7 grandkids Custody status/concerns (if any): NA Has any spouse/significant other struggled with mental health, alcohol or drug problems? No Does patient have any history (childhood or as an adult) of any of the following (document in the medical history): Abuse/Domestic Violence: No Neglect: No Exploitation: No Sexual History Gender Identify: male Sexual Orientation: Straight Have you ever traded sex for anything (i.e. food, money, drugs)? No Have you ever been coerced or forced to engage in any sexual activity? No Cultural & Ethnic Information (note patient's cultural beliefs, values and traditions and identify any impact on treatment) Pt denies Jainism/Spiritual Orientation (note if patient identifies any belief in higher power, yazdanism belief, or not. Identify any spiritual/yazdanism beliefs about suicide) Pt denies Educational History Highest level of education attained: Pt reported one year in college Education background (type, setting): public Academic performance and preferred areas of study: finance and accounting Attitude toward academic achievement: "I should have done better." Interest in future education/training: "No" Vocation/Employment History (If not employed, is patient seeking work, disabled, comment if unemployment related to behavioral health needs at this time) Employment Status: Disabled Current Employer: Not answered Start Date: Not answered Service Status: [place] [employer]: [employer] Years Served: 4 Additional Comments: Financial Issues How hard is it for you to pay for the very basics like food, housing, medical care, and heating?: Hard Social/Support System (describe usual social, peer-group, environmental settings - note if any recent changes) Support Systems: Spouse/significant other, Family members Social Connections In a typical week, how many times do you talk on the phone with family, friends, or neighbors?: Never How often do you get together with friends or relatives?: Never How often do you attend temple or yazdanism services?: Never Do you belong to any clubs or organizations such as temple groups, unions, fraternal or athletic groups, or school groups?: No Are you , , , , never , or living with a partner?: Living with partner (pt twice) Leisure & Recreational Interests (hobbies, interests, usual social activities - note if any recent changes) Pt reported, "word games, word search, play solitaire." Ability to Self Care It's almost impossible. My shower is broke and I can't get down or up." Pt reported he cleans at the sink. [facility] Resources Accessed Medicare and Medicaid Legal History Current Legal Issues?: No Legal Guardian: NA Are Legal Issues Impacting Treatment?: No Comments: No on 12/07/2023 (Age - 63y) Current Issue Description: NA Custody Issues?: NA Days Incarcerated in Past Month: 0 Past Legal Issue: No Comments: No on 12/07/2023 (Age - 63y) Previous DUI?: Drug Related Charges?: No Comments: No on 12/07/2023 (Age - 63y) If the patient has ever been arrested, describe the charges:: NA If the patient has ever been to [facility] or in [facility], list where and how much time the patient served:: NA Is there a relationship between the presenting condition and legal involvement? 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 Primary Care Provider Jani Quezada Date of last visit/physical (note patient estimate if date unknown & offer referral if more than 12 months ago): "this month" - Dr. Quezada Allergies Allergies Allergen Reactions Allopurinol Other Breaks out in blisters Codeine Nausea Only Penicillin G Swelling Pain Screening (note if involved with pain management program, date(s) and reason) Are you currently experiencing physical pain that makes it difficult to function in your normal routines at home, work, etc.?: Yes Are you receiving medical treatment to treat your physical pain?: No Please note any concerns regarding your physical pain impacting your ability to actively participate in your behavioral health treatment at this time:: Pt reported that he has had back surgeries and was on pain mgmt 20 years. Got off Jun 2023 due to alcohol use. Pt stated he was drinking to stop the pain. Clinician Concerns, Clarifications, Referral Note any concerns or clarifications:: PCP Referral Indicated:: No Nutrition Screening (note any specific concerns) If you are following a specific diet, please identify:: NA Do you have any food allergies or sensitivities?: No Have you experienced a weight loss or gain of 10 pounds or more in the last 3 months?: No Do you have tooth/mouth/dental problems that make it hard for you to eat?: Yes (no teeth) Have you experienced a decrease in food intake and/or appetite?: No Within the past 12 months, you worried that your food would run out before you got the money to buy more.: Never true Within the past 12 months, the food you bought just didn't last and you didn't have money to get more.: Never true Do you have any other nutrition concerns at this time?: No Clinician Concerns, Clarifications, Referral Note any concerns or clarifications:: NA Referral Indicated:: No Hospitalized/ER/Surgery in the last 3 months (if yes, include date and reason) Pt went to detox 10/20/23. He was in a assisted rehab facility 11/10/23 Past Surgical History: Procedure Laterality Date BACK SURGERY x 2 CHOLECYSTECTOMY LAMINECTOMY LAP,CHOLECYSTECTOMY (HISTORICAL) N/A 01/05/2023 WISDOM TOOTH EXTRACTION Psychiatric & Substance Use Treatment History (Current/Past, Inpatient/Outpatient) Inpatient Hospitalization: No Comments: No on 12/07/2023 Outpatient Hospitalization: No Comments: No on 12/07/2023 Partial Hospitalization: No Comments: No on 12/07/2023 Emergency Room Visits: No Comments: No on 12/07/2023 In-home Behavioral Health Services: No Comments: No on 12/07/2023 Intensive Outpatient: No Comments: No on 12/07/2023 Subacute Treatment: No Comments: No on 12/07/2023 Inpatient Substance Abuse Treatment: No Comments: No on 12/07/2023 Extended Day Treatment: No Comments: No on 12/07/2023 Outpatient Substance Abuse Treatment: No Comments: No on 12/07/2023 Emotional & Behavioral Symptoms & Functioning (current and past history) Depression Description: Onset 20 years ago, recurrent Symptoms: Feelings of worthlessness or guilt, Depressed mood most of the day, nearly every day for at least two weeks, Change in energy level, Impaired concentration, Loss of interest, Depressed mood, Increased irritability, Feelings of hopelessness, Indecisiveness, Isolative, Sleep disturbance Bere Description: No problems reported or observed Symptoms: Anxiety Symptoms: Generalized, Restless or feeling keyed up or on edge, Excessive anxiety and worry that occurs more days than not for at least 6 months about a number of events or activities, Excessive anxiety and worry, Palpitations, Difficulty concentrating or mind going blank, Social phobias Description: "Ever since I was little, I had anxiety. Shaky, nervous, don't want to be around anybody." Pt reported social anxiety. Dr. Márquez used to treat him for NEMESIO Panic Description: Pt reported, "It just happens, you can't control it." Pt reported "sweat, shake, heart hurts, stomach hurts, your mind goes crazy." Pt has panic attacks once every two months. Symptoms: Fear of "going crazy", Fear of losing control, Quickened heart beat, Palpitations, Shaking, One or more attacks followed by a month (or longer) of significant abnormal change in behavior in response to the attack(s), One or more attacks followed by a month (or longer) of persistent worry about having more panic attacks, Abnormal sweating Trauma Description: Symptoms: No problems reported or observed Other notable emotional/behavioral symptoms/functioning not listed above: NA In-Depth Substance Use Assessment In-Depth Substance Use Assessment needed? Yes If no assessment needed, reason: No data recorded If assessment needed, substance(s): Alcohol Alcohol Age at first use: 13 year(s) old How was/is alcohol obtained: purchase Current type, amount and frequency: 18+beers daily for 30 years Pattern of use: daily Last use date and amount: 49 days ago Current route or method of ingestion: oral Tolerance or withdrawal: yes, yes Marijuana (No data recorded) Age at first use: No data recorded How was/is marijuana obtained: No data recorded Current type, amount and frequency: No data recorded Pattern of use: No data recorded Last use date and amount: No data recorded Current route or method of ingestion: No data recorded Tolerance or withdrawal: No data recorded Opiates (No data recorded) Age at first use: No data recorded How were/are opiates obtained: No data recorded Current type, amount and frequency: No data recorded Pattern of use: No data recorded Last use date and amount: No data recorded Current route or method of ingestion: No data recorded Tolerance or withdrawal: No data recorded Sedatives (No data recorded Age at first use: No data recorded How were/are sedatives obtained: No data recorded Current type, amount and frequency: No data recorded Pattern of use: No data recorded Last use date and amount: No data recorded Current route or method of ingestion: No data recorded Tolerance or withdrawal: No data recorded Nicotine (No data recorded) Age at first use: No data recorded How was/is nicotine obtained: No data recorded Current type, amount and frequency: No data recorded Pattern of use: No data recorded Last use date and amount: No data recorded Current route or method of ingestion: No data recorded Tolerance or withdrawal: No data recorded Stimulants (No data recorded) Age at first use: No data recorded How were/are stimulants obtained: No data recorded Current type, amount and frequency: No data recorded Pattern of use: No data recorded Last use date and amount: No data recorded Current route or method of ingestion: No data recorded Tolerance or withdrawal: No data recorded Other Hallucinogens (No data recorded) Age at first use: No data recorded How were/are hallucinogens obtained: No data recorded Current type, amount and frequency: No data recorded Pattern of use: No data recorded Last use date and amount: No data recorded Current route or method of ingestion: No data recorded Tolerance or withdrawal: No data recorded Any other forms of addiction noted? N/A Additional Information Regarding Drug of Choice Morning use? Yes Do you believe you can control your use once you start? No Longest and last period of voluntary abstinence: 2 year period of sobriety in [id number]. Then his medication got reduced. Twelve-step meeting attendance? No (while in detox) Are you willing to attend 12-Step meetings? Maybe Do you have a sponsor? No When you have cut down or stopped using your drug(s) of choice, have you experienced any of the following? Shakes/tremors; Weakness; Nervousness/irritability; Cravings; Sleep difficulties; Heart palpitations; Depression; Nausea/vomiting; Muscle aches; Bloody diarrhea; Strange dreams; Sweating History of/Need for Detox Admission Number of detox admissions: 6 Location: "6 in the last year" Date: No data recorded Is there an immediate need for a detox admission at the time of this assessment? Yes Diagnostic Criteria for Substance-Use Disorders Checklist 1. Is the substance often taken in larger amounts or over a longer period than was intended? Yes 2. Is there a persistent desire or unsuccessful efforts to cut down or control use? Yes 3. Is a great deal of time spent in activities necessary to obtain a substance, or recovering from its effects? Yes 4. Does the client have a craving or strong desire or urge to use substances? Yes 5. Is there a recurrent substance use resulting in a failure to fulfill major role obligations at work, school or home? Yes 6. Is there continued substance use despite having persistent or recurrent social or interpersonal problems caused or exacerbated by the effects of the substance use? Yes 7. Are important social, occupational, or recreational activities given up or reduced because of substance use? No 8. Is there recurrent substance use in situations in which it is physically hazardous? No 9. Is substance use continued despite knowledge of having a persistent or recurrent physical or psychological problem that is likely to have been cause or exacerbated by substance use? Yes 10a) Does client have a need for markedly increased amounts of a substance to achieve intoxication or desired effect? Yes 10b) Does client experience a markedly diminished effect with continued use of the same amount of a substance? Yes 11a) Has the client experienced withdrawal syndrome? Yes 11b) Has the client continued to take a substance to avoid withdrawal, or taken some other substance in order to feel okay? Yes Substance: Alcohol Alcohol Severity: Severe Substance Use Disorder Cannabis Severity: No data recorded Hallucinogens Severity: No data recorded Inhalants Severity: No data recorded Opioids Severity: No data recorded Sedative/Hypnotics Severity: No data recorded Stimulants Severity: No data recorded Other Severity: No data recorded Remission Status Specify remission status if applicable: No data recorded Substance(s) in remission: Alcohol How long has client been free of all symptoms? 49 days Summary of Multidimensional Assessment (ASAM) 0 Dimension 1 Severity Rating (Substance Use, Acute Intoxication, Withdrawal Potential): No Risk/Stable, Rationale: Pt reported 49 days sober 3 Dimension 2 Severity Rating (Biomedical Conditions and Complications): Severe, Rationale: chronic health conditions 3 Dimension 3 Severity Rating (Emotional, Behavioral, or Cognitive Conditions and Complications): Severe, Rationale: severe anxiety, depression, social anxiety, panic attacks, isolative behaviors 2 Dimension 4 Severity Rating (Readiness to Change): Moderate, Rationale: apprehensive with group settings; has some motivation but fiance encouraging treatment 2 Dimension 5 Severity Rating (Relapse, Continued Use, or Continued Problem Potential): Moderate, Rationale: has friend who delivers alcohol, pt has chronic pain and shakes a lot; had 2 yr period of alcohol cessation but was on pain management 2 Dimension 6 Severity Rating (Recovery/Living Environment): Moderate, Rationale: fiance is supportive of recovery; pt stays home primarily Needs, Strengths, Preferences, and Goals (short & long-term personal goals) Needs: BELKYS, MH medication evaluation, screen for MAT Strengths: Support from family, Sense of humor, Stable housing Preferences: evening group Goals Increase coping skills to promote long-term recovery and improve ability to perform daily activities (pt-stated) Clearing out my mind. Mental Status Exam General Observations Appearance: Unkempt Demeanor: Spontaneous Activity: Tremors Speech: Logical/coherent Eye Contact: Glaring Mood & Affect Mood: Anxious, Dysphoric Affect: Normal Behavior Behavior: Cooperative Cognition Orientation Level: Oriented X4 Level of Consciousness: Alert Thought Processes: Bailey Thought Content: Unremarkable Delusions: (none reported or observed) Perceptions: Not altered Memory Tested: No Memory Disturbance: Yes Attention Deficit: No Judgment: Limited Insight: Impaired Suicide Risk Assessment Suicide Risk Assessment (Assess lethality if SI present) Ideation: Pt denies Intent: Pt denies Plan: Pt denies Self abusive behaviors: Pt denies Assessed Level of Suicide Risk Suicidal Ideation 1. Wish to be (Lifetime): Yes Wish to be Description (Lifetime): Pt reported "years ago" when he was in the [place]. 2. Non-Specific Active Suicidal Thoughts (Lifetime): No Suicidal Behavior Actual Attempt (Lifetime): No Actual Attempt (Past 3 Months): No Has subject engaged in non-suicidal self-injurious behavior? (Lifetime): No Has subject engaged in non-suicidal self-injurious behavior? (Past 3 Months): No Interrupted Attempts (Lifetime): No Interrupted Attempts (Past 3 Months): No Aborted or Self-Interrupted Attempt (Lifetime): No Aborted or Self-Interrupted Attempt (Past 3 Months): No Preparatory Acts or Behavior (Lifetime): No Preparatory Acts or Behavior (Past 3 Months): No C-SSRS Risk (Lifetime/Recent) Calculated C-SSRS Risk Score (Lifetime/Recent): No Risk Indicated Suicidal and Self-Injurious Behavior Actual Attempt (Past 3 Months): No Actual Attempt (Lifetime): No Interrupted Attempts (Past 3 Months): No Interrupted Attempts (Lifetime): No Aborted or Self-Interrupted Attempt (Past 3 Months): No Aborted or Self-Interrupted Attempt (Lifetime): No Preparatory Acts or Behavior (Past 3 Months): No Preparatory Acts or Behavior (Lifetime): No Has subject engaged in non-suicidal self-injurious behavior? (Past 3 Months): No Has subject engaged in non-suicidal self-injurious behavior? (Lifetime): No Clinical Status (Recent) Clinical Status (Recent): Substance abuse or dependence, Agitation or severe anxiety, Major depressive episode, Chronic physical pain or other acute medical problem (HIV/AIDS, COPD, cancer, etc.) Protective Factors (Recent) Protective Factors (Recent): Supportive social network or family Other Protective Factors Other Protective Factors: "my grandkids" Suicidal, Self-Injurious or Aggressive Behavior Describe any suicidal, self-injurious or aggressive behavior (include dates): Pt denies SIB Rationale for Risk Level (Narrative to include description of ALL FOUR of the following: historical and current suicidal ideation, suicidal behaviors, non-suicidal self-harming behaviors, and protective factors that support the level of suicide-risk selected. Rationale to include comment on each endorsed item on C-SSRS as well as clarification re: any baseline and/or significant changes in thoughts and behaviors related to suicide risk): Pt appears to be low risk at time of assessment. He denies SI. He stated he had a wish to be while serving in the . Pt identified protective factors including grandchildren. He stated he is too "chicken" to think about killing himself. He has support from fiance and other family members. Resources/Interventions Provided Suicidal ideation will be monitored each program day, Other (Comment) (provided 988 magnet and instructions for use) Homicide/Aggressive Behavior Risk Assessment Does patient have any current/history of homicidal ideation? (Explain: identify any history of ideation, intent, plan and/or actual homicidal behaviors) History: No Current: No Does patient have any history of aggressive behavior/threats towards others that does not include homicidal intent? History: No Current: No Comments Re: Significant MSE Findings NA Recommended Level of Care 2.1 Intensive Outpatient Services Level of Care Placed 2.1 Intensive Outpatient Services Patient's Response to Recommendations Pt open to trying IOP, prefers no therapy but open to psych eval for medication Diagnostic Impression (F10.20) Severe alcohol use disorder (HCC) Narrative Summary & Justification for Level of Care Pt is a 63 y.o. twice male referred by detox for CD assessment/treatment. Pt reported drinking 18+ beers daily for the last 50 years. He started drinking at age [age] years old. He has not had any alcohol for 49 days to date of this assessment. He went to detox in October followed by 2 wks at a assisted facility. Pt was terminated from pain management Jun 2023. He was accompanied by fiance at assessment. He collects disability. Pt has several chronic conditions including but not limited to high cholesterol, high blood pressure, cirrhosis, hepatitis C, hypodthyroidism. He reported back problems and had surgeries in the past. Pt reported 2 year period of alcohol abstinence but the doctor's decreased his dosage, causing him to drink to manage pain. Pt reported ongoing shakiness and black stool. He was advised to seek medical attention. He is open to evaluation for Vivitrol and psychotropic meds to manage anxiety and depression. He noted anxiety, panic attacks, and social anxiety during childhood. R/O NEMESIO with panic attacks and dysthymia. Pt stated he doesn't like to leave the house. He communicates with family and live-in [facility]. He reported a friend delivers his alcohol but has been advised not to do so anymore. He reported Dr. Márquez used to prescribe him Lexapro and Wellbutrin but she relocated to [place]. Pt interested in establishing care with a psychiatrist. Pt advised to contact [facility] psychiatry or community mental health. Pt apprehensive but open to trying CD IOP. He will start 12/15/23 in the evening. Pt uses a cane to walk. He was advised to use wheelchair as needed when he reports to group. Linked Episodes Type: Episode: Status: Noted: Resolved: Last update: Updated by: Behavioral Health - Addiction IOP Behavioral Health - Addiction IOP - November 2023 Active 11/25/2023 12/07/2023 10:15 AM Obstetrics Physician Template Comments:Episode created by system 11/25/2023 1:19 PM HIPOLITO Lafleur documented in this encounter [facility] 10-27-2023 History of Present illness Narrative Report given to Iliana at [facility]. Images from the original note were not included. PHYSICAL THERAPY [facility] Treatment Note Name/MRN: Woody Ni ([id number]) Date of : 1960 Age: 63 y.o. Room/Bed: B4-454/B4-454 B Visit #: 1 out of 5 visits Discharge Recommendation: Detention Facility Equipment Needed: No Prior Level of Function ADL Assistance: Independent Ambulation Assistance: Independent Device(s) used: quad cane Transfer Assistance: Independent Assessment Pt demonstrates decreased functional mobility with reports of severe pain all over however demonstrates ability to mobilize with limited assist. Pt did express increased pain in R hip with exercises and required light assist to decrease friction. Pt required cueing and light assist to complete transfers but reports inability to mobilize and does demonstrate full body tremors while in stance but was stable. Pt will benefit from continued therapy to further improve functional mobility to prior level of function as was recommended Subjective Pt hesitant to participate but agreed with coaxing. Pt reports being lonely with no visitors. Pain: 0-10 pain scale: 10/10 Location: all over all the time Medical Precautions: No active isolations Proper PPE donned/doffed in accordance with facility standards. Fall Risk: Maurice Fall Risk Score: 60 (High Risk) Precautions/Restrictions: N/A Overall Cognitive Status: WFL Overall Orientation Status: Oriented x4 Family/Caregiver Present: none Objective Transfers/Mobility Sit to stand: Min Assist Stand to sit: Min Assist Pt required cueing for safer hand placement during transitions with light assist to support and weight shift with cueing for technique while performing. Pt able to come to a full stand to walker. Pt required cueing for hand placement when returning to sit and light support to control eccentrically. Pt reports surprise in ability to perform stance but declined a second attempt Device(s) used: front wheeled walker Exercises Exercises Quad Sets: 1 set / 10 reps in supine B LE Heelslides: 1 set / 10 reps in supine B LE alternating with decreased ROM on R LE noted due to weakness and hip pain Gluteal Sets: 1 set / 10 reps in supine Hip Abduction: 1 set / 10 reps in supine B LE individually with light assist to decrease friction Knee Short Arc Quad: 1 set / 10 reps in supine B LE individually Ankle Pumps: 1 set / 10 reps in supine B LE Comments: Exercises performed to increase strength and activity tolerance for mobility with good teach back but limited movement on R LE due to increased hip pain Bed Mobility Supine to sit: Independent Sit to supine: Independent Pt completed transitions to and from a flat surface without usage of bed rails and no instability noted Balance: Pt demonstrated ability to maintain stance with slightly flexed knees and trunk with inability to correct with cueing and noted full tremors while in stance in which pt reports having all the time ( even from a child) No balance loss occurred while standing for 2 minutes with close SBA /light MIN A for safety Plan Continue acute PT per plan of care. Safety/Education Safety Safety Devices in place: All fall risk precautions in place, call light within reach, left in bed, gait belt, patient at risk for falls, and nurse notified Restraints: No Education Education Given To: patient Education Provided: PT Role, PT Goals, Plan of Care, Home Exercise Program, Precautions, Transfer Training, and Equipment Education Method: Verbal, Demonstration, and Teach Back Barriers to Learning: None Education Outcome: Verbalized Understanding, Demonstrated Understanding, and Continued Education Needed Outcome Measures AM-PAC AM-PAC Inpatient Mobility Raw Score (No Stairs) : 13 Goals Patient Stated Goal: Pt did not state. Encounter Problems Encounter Problems (Active) Balance Patient will maintain dynamic standing balance for 5 minutes with SBA in order to demonstrate decreased risk of falling. (Progressing) Start: 10/21/23 Expected End: 10/27/23 Exercise Patient will complete lower extremity exercises for 1-2 sets / 5-10 reps in order to improve strength and activity tolerance for mobility. (Progressing) Start: 10/21/23 Expected End: 10/27/23 Mobility Patient will ambulate 50 feet with SBA and least restrictive device in order to improve safety and independence with mobility. (Not Addressed) Start: 10/21/23 Expected End: 10/27/23 Pain - Adult Transfers Patient will perform bed mobility with modified independence in order to improve independence and prepare for out of bed mobility. (Completed) Start: 10/21/23 Expected End: 10/27/23 Resolved: 10/26/23 Patient will complete functional transfer with least restrictive device with SBA in order to prepare for ambulation. (Progressing) Start: 10/21/23 Expected End: 10/27/23 Therapy Time Individual Co-treatment Time In 1050 Time Out 1115 Minutes 25 Timed Code Treatment Minutes: 23 Minutes (ther ex and ther act) Zakiya Jaffe PTA Images from the original note were not included. OCCUPATIONAL THERAPY [facility] Treatment Note Name/MRN: Woody Ni ([id number]) Date of : 1960 Age: 63 y.o. Room[facility]: [facility]/B[facility] B Visit #: 2 out of 5 visits Discharge Recommendation: Detention Facility Equipment Needed: No Prior Level of Function ADL Assistance: Independent Ambulation Assistance: Independent Device(s) used: quad cane Transfer Assistance: Independent Assessment Pt with poor activity tolerance this date. Pt was laying on his right side and propped up on his right elbow when GRANADOS entered the room. IV beeping and pt hitting the cancel button on the IV approximately 8-10 times. Pt agrees to a BSC transfer. Pt is SBA but poor safety awareness and poor hand placement. Pt had stood up by pushing on the BSC that was about 8 inches away and facing the bed. Also a towel on the floor that he was standing on. Pt needing cues for which way to turn due to the IV in right arm. Pt was able to manage pants up/down and padmini-care in standing after voiding in the BSC. Pt is CGA to transfer back to the bed and cues to turn and for safety. Pt not turning completely before sitting on the bed. Towel removed from under the BSC at end of transfer and washed his face sitting EOB. Pt reports 10/10 pain in back and RN aware. Min assist for scooting to center of the bed once in supine. Pt would benefit from continued OT to increase strength and endurance needed for ADL's and transfers. OT recs SNF at discharge. Subjective Pt reports 10/10 pain and wants morphine. RN made aware. Pt also states "I feel like I'm getting a cold. I have a sore throat" Pain: 0-10 pain scale: 10/10 Location: back Medical Precautions: No active isolations Proper PPE donned/doffed in accordance with facility standards. Fall Risk: Maurice Fall Risk Score: 60 (High Risk) Precautions/Restrictions: N/A Family/Caregiver Present: none Objective ADLs Grooming: SBA, after setup, washed his face sitting EOB. Pt declines to comb his hair. Toileting: Contact Guard, Pt agreeable to use the BSC. Was able to manage pulling his pants up and down in standing and was able to perform padmini-care with a warm bath wipe. Pt stood approximately 30-45 seconds for task. Pt had no true LOB but is unsteady with poor safety awareness when standing. Towel under his feet and also under the BSC. Pt in too much pain and declines other ADL's. Pt wearing a clean brief and pants. Bed Mobility Supine to sit: Supervision Sit to supine: Supervision Scooting: Min Assist, Min assist to scoot hips to center of the bed. Transfers/Mobility Sit to stand: Supervision, Contact Guard, supervision from EOB and CGA from the BSC Stand to sit: Contact Guard Bedside commode: Contact Guard Sitting balance: Modified Independent Standing balance: Contact Guard Functional mobility: Not attempted. Pt states several times that he cannot walk. Pt in too much pain and did not want to attempt at this time. RN medicating pt for pain at end of session. Pt stood 30-45 sec for padmini-care after toileting. No LOB or c/o dizziness. Pt educated on safety and towel was removed from under the BSC. Pt wearing non-slip socks. Device(s) used: bedside commode and hospital bed Cognition Pt continues to demo diminished cognition at this time. Demonstrates poor safety awareness with transfers. Pt needs increased cueing for safety and proper hand placement during OOB activity. Cueing for sequencing and initiation of tasks. Pt demos diminished problem solving capability during BSC transfer at this time. Impaired Plan Continue acute OT per plan of care. Safety/Education Safety Safety Devices in place: All fall risk precautions in place, call light within reach, left in bed, and nurse notified Restraints: No Education Education Given To: patient Education Provided: OT Role, Plan of Care, Transfer Training, Fall Prevention Education, and Benefits of Increasing Activity Education Method: Verbal and Demonstration Barriers to Learning: None Education Outcome: Verbalized Understanding, Demonstrated Understanding, and Continued Education Needed AM-PAC AM-PAC Inpatient Daily Activity Raw Score: 17 ADL Inpatient CMS G-Code Modifier: CK Goals Patient Stated Goal: none stated Encounter Problems Encounter Problems (Active) Balance Patient will tolerate standing mod I for 3 minutes to allow for increased participation in functional activities (Progressing) Start: 10/21/23 Expected End: 10/29/23 Dressings Lower Extremities Patient will dress lower body mod I (Not Addressed) Start: 10/21/23 Expected End: 10/29/23 Mobility Patient will demonstrate functional ambulation mod I (Not Addressed) Start: 10/21/23 Expected End: 10/29/23 Toileting Patient will complete toileting tasks at standard toilet with modified independence. (Slowly Progressing) Start: 10/21/23 Expected End: 10/29/23 Transfers Patient will complete functional transfer with least restrictive device with modified independence in order to prepare for ambulation. (Progressing) Start: 10/21/23 Expected End: 10/29/23 Therapy Time Individual Co-treatment Time In 0844 Time Out 0853 Minutes 9 Timed Code Treatment Minutes: 8 Minutes (adl) [facility] Department of Family Medicine Daily Progress Note Subjective Chief Complaint (required for billing): Alcohol induced acute pancreatitis without necrosis or infection Pt not doing well today very sad tells me he can't take much more. He just wants to at times I will have palliative see him today. ROS: Review of Systems Objective BP (!) 132/91 (BP Location: Left arm, Patient Position: Sitting) Pulse 104 Temp 36.5 C (97.7 F) (Temporal) Resp 18 Ht 5' 10" (1.778 m) Wt 160 lb (72.6 kg) SpO2 98% BMI 22.96 kg/m Physical Exam Pt is alert and oriented x 3 Heent wnl Heart regular Lungs ctab Abd epigastric tenderness Ext no edema Labs Notable Labs: Current Medications Medication orders reviewed, see MAR Assessment/Plan Principal Problem: Alcohol induced acute pancreatitis without necrosis or infection Active Problems: Severe alcohol use disorder (HCC) Alcohol withdrawal syndrome with complication (HCC) Repeated falls Moderate malnutrition (CMS/HCC) (HCC) Acute pancreatitis Etoh abuse Cirrhosis HPL HTN Pancytopenia due to etoh Anemia worse Hypomagnesemia Hypokalemia Plan Replace electrolytes Monitor labs Await snf placement Dc iv morphine change to po Consult palliative FEN:Adult diet Regular GI prophylaxis: ppi DVT prophylaxis: none # Anticipated Discharge - Date - 1-2 d - Location - Skilled Facility - Pending the following - KACIE BENZ DO 10/26/23 8:49 AM Department of Family Medicine Daily Progress Note Subjective Chief Complaint (required for billing): Alcohol induced acute pancreatitis without necrosis or infection Pt states he feels miserable today but is eating ok so far ROS: Review of Systems Objective BP (!) 160/102 (BP Location: Left arm, Patient Position: Sitting) Pulse 98 Temp 36.6 C (97.9 F) (Temporal) Resp 18 Ht 5' 10" (1.778 m) Wt 160 lb (72.6 kg) SpO2 97% BMI 22.96 kg/m Physical Exam Pt is alert and oriented x 3 Heent wnl Heart regular Lungs ctab Abd epigastric tenderness Ext no edema Labs Notable Labs: Current Medications Medication orders reviewed, see MAR Assessment/Plan Principal Problem: Alcohol induced acute pancreatitis without necrosis or infection Active Problems: Severe alcohol use disorder (HCC) Alcohol withdrawal syndrome with complication (HCC) Repeated falls Moderate malnutrition (CMS/HCC) (HCC) Acute pancreatitis Etoh abuse Cirrhosis HPL HTN Pancytopenia due to etoh Anemia worse Hypomagnesemia Hypokalemia Plan Replace electrolytes Monitor labs Await snf placement FEN:Adult diet Regular GI prophylaxis: PPI ordered DVT prophylaxis: none # Anticipated Discharge - Date - 1-2 d - Location - Skilled Facility - Pending the following - jessy EBNZ DO 10/25/23 9:56 AM Patient seen and chart reviewed. No bleed or thrombosis. Afebrile. Adequate oxygenation on room air. Baseline mentation. Persistent low grade HTN and tachycardia. Exam otherwise stable X 5 systems. Hgb 11.4 WBC 3.0 K Platelets 37 K BUN 6 Creatinine 0.59 GFR > 90 ml/min. LDH 231 Haptoglobin 161.5. No hemolysis. Pancytopenia unchanged. Discussed with patient, , and staff genetic counselor. Total visit time > 35 minutes. Department of Family Medicine Daily Progress Note Subjective Chief Complaint (required for billing): Alcohol induced acute pancreatitis without necrosis or infection Pt sound asleep this am lipase is trending down he is less tachycardic and bp is improving ROS: Review of Systems Objective BP 130/84 (BP Location: Left arm, Patient Position: Lying) Pulse 105 Temp 36.5 C (97.7 F) (Temporal) Resp 16 Ht 5' 10" (1.778 m) Wt 160 lb (72.6 kg) SpO2 99% BMI 22.96 kg/m Physical Exam Pt is alert and oriented x 3 Heent wnl Heart regular Lungs ctab Abd epigastric tenderness Ext no edema Labs Notable Labs: Current Medications Medication orders reviewed, see MAR Assessment/Plan Principal Problem: Alcohol induced acute pancreatitis without necrosis or infection Active Problems: Severe alcohol use disorder (HCC) Alcohol withdrawal syndrome with complication (HCC) Repeated falls Moderate malnutrition (CMS/HCC) (HCC) Acute pancreatitis Etoh abuse Cirrhosis HPL HTN Pancytopenia due to etoh Anemia worse Hypomagnesemia Hypokalemia FEN:Adult diet Regular GI prophylaxis: PPI ordered DVT prophylaxis: none # Anticipated Discharge - Date - 1-2 d - Location - [facility] Facility - Pending the following - auth KACIE BENZ DO 10/24/23 10:46 AM Hematology/Oncology Attending Progress Note SUBJECTIVE: Patient seen and chart reviewed. No bleed or thrombosis. OBJECTIVE BP 130/84 (BP Location: Left arm, Patient Position: Lying) Pulse 105 Temp 36.5 C (97.7 F) (Temporal) Resp 16 Ht 1.778 m (5' 10") Wt 72.6 kg (160 lb) SpO2 99% BMI 22.96 kg/m Physical CONSTITUTIONAL: Fatigue NECK: Not evaluated HEMATOLOGIC/LYMPHATICS: no significant cervical adenopathy, no significant axillary adenopathy, and no significant inguinal adenopathy LUNGS: crackles and rhonchi CARDIOVASCULAR: S1, S2, tachycardia. ABDOMEN: soft the abdomen diffusely tender. NEUROLOGIC: No focal signs. SKIN: Traumatic purpura. 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 Pharmacy has raised the possibility of spontaneous HIT even without heparin exposure. Low possibility for HIT on [place] criteria. Will order PF4 titer. Discussed with patient's staff genetic counselor. Will continue to monitor. Total visit time > 35 minutes. Images from the original note were not included. PHYSICAL THERAPY [facility] Name/MRN: Woody Ni ([id number]) Date: 10/23/2023 Chart review completed this date. PT attempted. RN cleared for therapy. States pt is currently on the BSC. NEEDLE BOARD REPAIRER enters the room to find pt in bed c/o not being allowed to use the BSC. NEEDLE BOARD REPAIRER notices BSC lid up with urine in the basin. Pt states nsg won't let him get up for anything...not to walk, go to the bathroom, nothing! NEEDLE BOARD REPAIRER explains she is there to see how he is moving and to allow him to get up and move about. Pt scoffs and says, No! The nurse says I can't get up so I am not getting up." Pt then rolls away from NEEDLE BOARD REPAIRER and closes his eyes. Max encouragement provided with no success. Multiple options for therapy participation provided with no success. PT will continue to follow. Will re-attempt another time/date as schedule permits. Iliana Anne, NEEDLE BOARD REPAIRER Images from the original note were not included. OCCUPATIONAL THERAPY [facility] Treatment Note Name/MRN: Woody Ni ([id number]) Date of : 1960 Age: 63 y.o. Room/Bed: B4-454/B4454 B Visit #: 1 out of 5 visits Discharge Recommendation: Detention Facility Equipment Needed: No Prior Level of Function ADL Assistance: Independent Ambulation Assistance: Independent Device(s) used: quad cane Transfer Assistance: Independent Assessment Pt seen for OT treatment focused on functional transfers, bed mobility, mobility with a FWW, and bathroom level toileting this date. He was able to complete bathroom level toileiting this date with CGA overall for safety and stability. He requires increased cueing for safety throughout. No physical assist for transfers / mobility this date with CGA overall and cueing for proper device management and problem solving. He continues to be limited by diminished fatigue and cognition at this time. He would benefit from skilled OT services to address the below. Recommend planned discharge for SNF. Subjective Pleasant and cooperative. OK to see per RN. Pain: Pt denies any current pain. Medical Precautions: No active isolations Proper PPE donned/doffed in accordance with facility standards. Fall Risk: Maurice Fall Risk Score: 60 (High Risk) Precautions/Restrictions: N/A Family/Caregiver Present: none Objective ADLs Toileting: Contact Guard Pt completed bathroom level toileting this date with increased time. No true LOB noted this date with OOB activity. He was able to complete pericare and pants management without physical assist at this time, however diminished stability noted at this time and increased cueing for sequencing and safety throughout. Bed Mobility Supine to sit: SBA Sit to supine: SBA Scooting: SBA HOB elevated, increased time required to complete. Denies dizziness with positional changes. Increased reliance on bed rails for completion of bed mob. Pt was able to mobilize BLE and trunk into / OOB without physical assist at this time. Mild instability noted. Transfers/Mobility Sit to stand: Contact Guard Stand to sit: Contact Guard Toilet: Contact Guard Sitting balance: SBA Standing balance: Contact Guard Functional mobility: Contact Guard Pt completed sit<>stand from EOB to FWW with increased time and fair hand placement with cueing required to push up from / reach back for seated surfaces. He denies dizziness with positional changes this date. He was able to complete short mobility in room to bathroom with FWW with fair device management. Pt required cueing for problem solving side steps at EOB d/t limitations from space in room for device management. He completed short mobility in hallway with increased time this date and fair device management. Mild fatigue noted with completion. Device(s) used: front wheeled walker Cognition: Pt continues to demo diminished cognition at this time. He requires increased cueing for safety and proper hand placement / device management during OOB activity. Cueing for sequencing and initiation required during OOB activity. Pt demos diminished problem solving capability during device management around EOB at this time. Plan Continue acute OT per plan of care. Safety/Education Safety Safety Devices in place: All fall risk precautions in place, call light within reach, left in bed, bed alarm in place, gait belt, patient at risk for falls, nurse notified, and steam presser present Restraints: No Education Education Given To: patient Education Provided: Plan of Care, ADL Adaptive Strategies, Transfer Training, Equipment, Fall Prevention Education, and Benefits of Increasing Activity Education Method: Verbal, Demonstration, and Teach Back Barriers to Learning: Cognition Education Outcome: Verbalized Understanding and Continued Education Needed AM-PAC AM-PAC Inpatient Daily Activity Raw Score: 17 ADL Inpatient CMS G-Code Modifier: CK Goals Patient Stated Goal: none stated Encounter Problems Encounter Problems (Active) Balance Patient will tolerate standing mod I for 3 minutes to allow for increased participation in functional activities (Progressing) Start: 10/21/23 Expected End: 10/29/23 Dressings Lower Extremities Patient will dress lower body mod I (Not Addressed) Start: 10/21/23 Expected End: 10/29/23 Mobility Patient will demonstrate functional ambulation mod I (Progressing) Start: 10/21/23 Expected End: 10/29/23 Toileting Patient will complete toileting tasks at standard toilet with modified independence. (Progressing) Start: 10/21/23 Expected End: 10/29/23 Transfers Patient will complete functional transfer with least restrictive device with modified independence in order to prepare for ambulation. (Progressing) Start: 10/21/23 Expected End: 10/29/23 Therapy Time Individual Co-treatment Time In 912 Time Out 0930 Minutes 17 Timed Code Treatment Minutes: 17 Minutes (ADL) Maicol Ortiz OT I wrote for the phenobarbital taper to be completed by Thursday, but he doesn't necessarily have to stay until then if withdrawal symptoms have resolved by then. He is greatly improved from a withdrawal standpoint. Thrombocytopenia likely 2/2 to skilled nursing alcoholism but no signs of bleeding or need for transfusion now. IV mag ordered for hypomagnesemia. I put contact information for [facility] cessation counseling programs and MAT options in his discharge instructions. Signing off. Department of Family Medicine Daily Progress Note Subjective Chief Complaint (required for billing): Alcohol induced acute pancreatitis without necrosis or infection Pt sleeping this am no new issues overnight. His lipase is down a little but his K and mag are low ROS: Review of Systems Objective BP 117/80 (BP Location: Right arm, Patient Position: Lying) Pulse (!) 121 Temp 36.2 C (97.2 F) (Temporal) Resp 18 Ht 5' 10" (1.778 m) Wt 160 lb (72.6 kg) SpO2 95% BMI 22.96 kg/m Physical Exam Pt is alert and oriented x 3 Heent wnl Heart regular Lungs ctab Abd epigastric tenderness Ext no edema Labs Notable Labs: k 2.7 mag 0.8 Current Medications Medication orders reviewed, see MAR Assessment/Plan Principal Problem: Alcohol induced acute pancreatitis without necrosis or infection Active Problems: Severe alcohol use disorder (HCC) Alcohol withdrawal syndrome with complication (HCC) Repeated falls Moderate malnutrition (CMS/HCC) (HCC) Acute pancreatitis Etoh abuse Cirrhosis HPL HTN Pancytopenia due to etoh Anemia worse Hypomagnesemia Hypokalemia Plan Replace electrolytes. Monitor labs FEN:Adult diet Regular GI prophylaxis: NA DVT prophylaxis: SCDs # Anticipated Discharge - Date - 1-2 d - Location - Skilled Facility - Pending the following - auth KACIE BENZ DO 10/23/23 9:56 AM Nutrition Assessment Type and Reason for Visit: Initial, Positive Nutrition Screen (wound, decreased PO, wt loss) Nutrition Recommendations/Plan: Continue with Adult diet Full liquid as tolerated. Recommend goal diet of Low Fat/chol for tolerance of diet with Pancreatitis. Lipase still slightly elevated, but trending down towards wnl. Most recently 483. Please document pt's PO intakes via flowsheet to accurately assess PO intake adequacy. Initiate Ensure high protein BID per MNT protocol. Ensure High Protein provides 160 kcals, 16 g protein per serving. ETOH hx- on Thiamine/Folate supplementation. Receiving K+ replacement for slight hypokalemia (3.2) Monitor intakes, weights, and labs weekly. RD will follow. Malnutrition Assessment: Malnutrition Status: Moderate malnutrition Context: Social/Environmental Circumstances Findings of the 6 clinical characteristics of malnutrition: Energy Intake: Less than 75% estimated energy requirements for 3 months or longer Weight Loss: Greater than 20% over 1 year (Total of 23.8% wt loss in 1 yr, 2 mo; 12.1% wt loss in 9 mo) Body Fat Loss: No significant body fat loss Muscle Mass Loss: Mild muscle mass loss Thigh (quadraceps), Calf (gastrocnemius) Fluid Accumulation: No significant fluid accumulation Sterilisation Technician Strength: Not Performed Nutrition Assessment: Pt was admitted with ab pain, nausea/vomiting due to Acute Alcoholic Pancreatitis. Lipase still elevated but trending down, most recently 483. Pt was advanced to full liquids this AM. Encouraged pt to trial full liquids at bedside. Pt was adamant that he was told he could have solid foods. Explained to pt that we have to ensure he is first tolerating full liquids prior to further advancement to solids foods. Clarified with Dr. Benz- pt to remain on full liquids for now due to ongoing GI symptoms. Pt reported that he has had a decreased appetite for about a month. Pt with extensive ETOH use history, noted use of about 42 beers a week per hx, or upwards 18 beers daily some days. This AM, pt is weak and shaky, high risk for alcohol withdrawal. When asked about his UBW, pt stated that he weighed up to 250# at one point, but unable to state exact time frame. Per EMR wt history review, pt did have a weight of 210# on 08/2022, 182#-02/13/23. Pt endorses a 12.1% wt loss in 9 mo and a total of 23.8% wt loss in a year and 2 months. Estimated Daily Nutrient Needs: Energy Requirements Based On: Kcal/kg Weight Used for Energy Requirements: Current Weight for Energy Calculation (kg): 73 kg Total Energy Requirements (kcals/day): 1267-6894 kcals (25-30 kcals/kg) Weight Used for Protein Requirements: Current Weight in Kg Used for Protein Requirements: 73 kg Estimated Total Protein (g/day): 73-88 (1-1.2g/kg) Estimated Daily Total Fluid (ml/day): 3041-5851 ml/day or per MD Nutrition Related Findings: no edema; Na 129, K+ 3.2, Cl 95, BUN 5, Cr 0.59, glucose 121, 70, 92, Ca++ 8.1, Hgb 9.1, Hct 27.3, Lipase 483, albumin 3.8 Wound Type: (bruising) Current Nutrition Therapies: Adult diet Full liquid Current Oral Intake Average Meal Intake: (just advanced from clear liquids to full liquids) Average Supplements Intake: None Ordered Anthropometric Measures: Height: 177.8 cm (5' 10") Current Body Weight: 72.5 kg (159 lb 12.8 oz) Weight Source: Bed Scale Admission Body Weight: 72.6 kg (160 lb) (bed scale) Usual Body Weight: 95.3 kg (210 lb) (210#- 08/2022, 182#-02/13/23) % Weight Change (Calculated): -23.9 [place] Body Weight (lbs) (Calculated): 166 lbs [place] Body Weight (Kg) (Calculated): 75 kg % [place] Body Weight (Calculated): 96.3 % BMI (kg/m2) (Calculated): 22.9 Weight Adjustment For: No Adjustment BMI Categories: Normal Weight (BMI 18.5-24.9) Nutrition Diagnosis: Moderate malnutrition related to psychological cause or life stress, inadequate protein-energy intake, other (comment), altered GI function (ETOH hx) as evidenced by poor intake prior to admission, mild muscle loss, weight loss greater than or equal to 20% in 1 year Altered GI function related to acute injury/trauma as evidenced by nausea, vomiting, diarrhea, GI abnormality Nutrition Interventions: Nutrition Education/Counseling: No recommendation at this time Coordination of Nutrition Care: Continue to monitor while inpatient Plan of Care discussed with: Patient, Dr. Benz Goals: Goals: PO intake 75% or greater, by next RD assessment, other (specify) Specify Other Goals: Altered GI symptoms will resolve Nutrition Monitoring and Evaluation: Behavioral-Environmental Outcomes: None Identified Food/Nutrient Intake Outcomes: Diet Advancement/Tolerance, Food and Nutrient Intake, Supplement Intake Physical Signs/Symptoms Outcomes: Biochemical Data, GI Status, Fluid Status or Edema, Nutrition Focused Physical Findings, Skin, Weight Discharge Planning: Too soon to determine Kristine George RD Contact: *[phone] or via Secure Chat Department of Family Medicine Daily Progress Note Subjective Chief Complaint (required for billing): Alcohol induced acute pancreatitis without necrosis or infection Pt doing ok today he is still having some nausea and emesis pain is still there. He wants to eat more but I dont want to advance him too fast ROS: Review of Systems Objective BP (!) 141/100 (BP Location: Left arm, Patient Position: Sitting) Comment: RN notified Pulse 105 Temp 36.3 C (97.4 F) (Temporal) Resp 18 Ht 5' 10" (1.778 m) Wt 160 lb (72.6 kg) SpO2 98% BMI 22.96 kg/m Physical Exam Pt is alert and oriented x 3 Heent wnl Heart regular Lungs ctab Abd epigastric tenderness Ext no edema Labs Notable Labs: pancytopenia Current Medications Medication orders reviewed, see MAR Assessment/Plan Principal Problem: Alcohol induced acute pancreatitis without necrosis or infection Active Problems: Severe alcohol use disorder (HCC) Alcohol withdrawal syndrome with complication (HCC) Repeated falls Acute pancreatitis Etoh abuse Cirrhosis HPL HTN Pancytopenia due to etoh Anemia worse today no signs of active bleeding Plan Consult heme due to low platelets and hemoglobin ? Need for EGD Monitor labs Replace K Full liquid diet FEN:Adult diet Clear liquid GI prophylaxis: PPI ordered DVT prophylaxis: none # Anticipated Discharge - Date - ? - Location - Skilled Facility - Pending the following - KACIE BENZ DO 10/22/23 9:03 AM Images from the original note were not included. OCCUPATIONAL THERAPY [facility] Initial Evaluation Name/MRN: Woody Ni ([id number]) Evaluation Date: 10/21/2023 Date of : 1960 Admission Date: 10/20/2023 5:00 PM Age: 63 y.o. Room/Bed: 09/29 Discharge Recommendation: Detention Facility Equipment Needed: No Assessment IMPRESSION: Pt admitted 10/20 with vomiting. Pt found to have alcohol induced pancreatitis. Pt is independent with ADLs and functional mobility with cane at baseline. At time of eval, pt is min-max A with ADLs and min A for transfers and side steps with fww. Pt is limited by weakness, balance deficits, poor activity tolerance, and cognition. Pt noted to have full body tremors during eval. Pt is functioning below baseline and would benefit from skilled OT services to maximize safety and independence with ADLs and functional mobility. Rec SNF. Performance Deficits /Impairments: Increased Pain, Decreased Functional Mobility, Decreased ADL status, Decreased Strength, Decreased Safety Awareness, Decreased Cognition, Decreased Endurance, Decreased Balance, and Decreased High Level IADLs Prognosis: Fair Decision Making: Medium Complexity Subjective Pt supine in bed at arrival. Pt ok to see per RN. ED tele in tact. Pt was agreeable to OT eval. Pain: c/o pain throughout session, did not rate 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 Nausea and vomiting 12/22/22-12/26/22 admitted at [facility] Pain management Sleep apnea noncompliant with device Past Surgical History: Past Surgical History: Procedure Laterality Date BACK SURGERY x 2 CHOLECYSTECTOMY LAMINECTOMY LAP,CHOLECYSTECTOMY (HISTORICAL) N/A 01/05/2023 WISDOM TOOTH EXTRACTION Admission Diagnosis: Patient Active Problem List Diagnosis Date Noted Alcohol induced acute pancreatitis without necrosis or infection 10/20/2023 Recurrent falls 07/01/2023 Repeated falls 06/26/2023 Alcohol abuse 06/22/2023 Severe malnutrition (CMS/HCC) (HCC) 04/11/2023 Severe alcohol use disorder (HCC) 04/02/2023 Alcohol withdrawal syndrome with complication (HCC) 04/02/2023 Gallbladder sludge 01/05/2023 RUQ pain 01/05/2023 Acute on chronic cholecystitis 01/05/2023 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) 01/05/2023 Acute kidney injury (HCC) 12/22/2022 DENN[place] (acute kidney injury) (HCC) 12/22/2022 Chronic pain syndrome 11/06/2022 Complication of surgical procedure 11/06/2022 Intercostal pain 11/06/2022 Low back pain 11/06/2022 Mild recurrent major depression (HCC) 11/06/2022 Myalgia 11/06/2022 Right hip pain 11/06/2022 Shoulder joint pain 11/06/2022 Intractable nausea and vomiting 06/05/2022 Hypovolemia 06/04/2022 Chronic alcoholic hepatitis 06/04/2022 Postural dizziness with presyncope 06/04/2022 Hyponatremia 06/03/2022 Osteoarthritis of spine with radiculopathy, lumbar region 03/12/2018 Essential hypertension 08/26/2017 Diabetes (HCC) 08/26/2017 Cirrhosis (HCC) 08/26/2017 Asthma 08/26/2017 Thyroid disease 08/26/2017 SHAYLA (obstructive sleep apnea) 08/26/2017 HLD (hyperlipidemia) 08/26/2017 Hepatitis 08/26/2017 Lumbar stenosis 06/10/2017 Medical Precautions: No active isolations Proper PPE donned/doffed in accordance with facility standards. Fall Risk: Maurice Fall Risk Score: 35 (Medium Risk) Precautions/Restrictions: N/A Family/Caregiver Present: none Overall Cognitive Status: Exceptions - Attention span: attends with cues to redirect - Memory: decreased short term memory - Safety judgement: decreased awareness of need for safety - Problem solving: decreased awareness of errors - Initiation: requires cues for some - Sequencing: requires cues for some Overall Orientation Status: Oriented to Place and Oriented to Person Social/Functional History Patient admitted from home. Lives With: Spouse Type of Home: House Home Layout: Two level, Able to Live on Main level with bedroom/bathroom Home Access: Stairs to enter without rails Entrance Stairs - Number of Steps: 1 Bathroom Shower/Tub: Tub/Shower unit, Shower chair with back Bathroom Toilet: Standard Bathroom Equipment: Grab bars in shower Bathroom Accessibility: Accessible ADL Assistance: Needs assistance Homemaking Assistance: Needs assistance Homemaking Responsibilities: No Ambulation Assistance: Independent With device?: Yes Device: small base quad cane Transfer Assistance: Independent Active Environmental Field Office Manager: No Occupation: On disability Prior Level of Function ADL Assistance: Independent Ambulation Assistance: Independent Device(s) used: quad cane Transfer Assistance: Independent Objective ADLs LE Dressing: Max Assist Pt required max A for donning bilateral shoes sitting EOB. Pt declined further ADLs. Pt anticipated to require min A for balance with standing aspects of ADLs. Pt requires BSC level toileting d/t transfer status. Upper Extremity Assessment AROM: WFL PROM: WFL Strength: Exceptions: mild weakness Vision: no visual deficits Hearing: normal Bed Mobility Supine to sit: Min Assist Sit to supine: Contact Guard Scooting: SBA Denies dizziness in sitting. Increased time to complete and Eliezer for trunk management. Transfers/Functional Mobility Sit to stand: Min Assist Stand to sit: Min Assist Functional mobility: Min Assist Pt standing from EOB to fww with min A for elevation and balance. Pt demo full body tremors and rapid fatigue in standing. Pt able to take a few lateral steps along EOB with fww with min Afor balance and walker mgmt. Pt unable to attempt further ambulation d/t fatigue. Device(s) used: front wheeled walker AM-PAC AM-PAC Inpatient Daily Activity Raw Score: 16 ADL Inpatient CMS G-Code Modifier: CK Plan Pt would benefit from skilled acute OT services to address Strengthening, ROM, Balance Training, Functional Mobility Training, Endurance Training, Pain Management, Safety Education and Training, Patient/Caregiver Training, Equipment Evaluation/Education, Self-Care/ADL Training, Home Management Training, and Cognitive/Perceptual Training. Frequency: 5 visits during current hospital admission or until additional recommendations are made Barriers: Confusion and Decreased endurance Prognosis: fair Safety/Education Safety Safety Devices in place: All fall risk precautions in place, call light within reach, left in bed, gait belt, patient at risk for falls, nurse notified, and no alarms engaged upon entry Restraints: N/A Education Education Given To: patient Education Provided: OT Role, Plan of Care, Transfer Training, Equipment, Fall Prevention Education, and Discharge Recommendations Education Method: Verbal and Teach Back Barriers to Learning: None Education Outcome: Verbalized Understanding and Continued Education Needed Goals Patient Stated Goal: none stated Encounter Problems Encounter Problems (Active) Balance Patient will tolerate standing mod I for 3 minutes to allow for increased participation in functional activities Start: 10/21/23 Expected End: 10/29/23 Dressings Lower Extremities Patient will dress lower body mod I Start: 10/21/23 Expected End: 10/29/23 Mobility Patient will demonstrate functional ambulation mod I Start: 10/21/23 Expected End: 10/29/23 Toileting Patient will complete toileting tasks at standard toilet with modified independence. Start: 10/21/23 Expected End: 10/29/23 Transfers Patient will complete functional transfer with least restrictive device with modified independence in order to prepare for ambulation. Start: 10/21/23 Expected End: 10/29/23 Therapy Time Individual Co-treatment Time In 1048 Time Out 1058 (co eval with PT) Minutes 10 Veronica Padilla OT Patient's Occupational Therapy Plan of Care supervision is transferred to a [facility] Therapy Services Occupational Therapist. Goals and/or treatment plan was established in collaboration with patient/family/other representatives. Images from the original note were not included. PHYSICAL THERAPY [facility] Initial Evaluation Name/MRN: Woody Ni ([id number]) Evaluation Date: 10/21/2023 Date of : 1960 Admission Date: 10/20/2023 5:00 PM Age: 63 y.o. Room/Bed: 09/29 Discharge Recommendation: Detention Facility Equipment Needed: No Assessment IMPRESSION: Pt admitted 10/20 with vomiting and ETOH abuse. Pt presents with the below deficits limiting his functional independence. On evaluation patient requires Min-CGA for bed mobility and Eliezer for transfers and steps along EOB with use of FWW. Pt is limited by rapid fatigue and significant tremors in UE and LE in standing. Pt should benefit from skilled PT to increase functional independence and safety. Rec SNF. Prognosis: good Performance Deficits /Impairments: Increased Pain, Decreased Functional Mobility, Decreased ADL status, Decreased Strength, Decreased Safety Awareness, Decreased Cognition, Decreased Endurance, Decreased Balance, and Decreased Posture Decision Making: Medium Complexity Subjective Pt lying in bed and agreeable to therapy Pain: Pt denies any current pain. 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 Nausea and vomiting 12/22/22-12/26/22 admitted at [facility] Pain management Sleep apnea noncompliant with device Past Surgical History: Past Surgical History: Procedure Laterality Date BACK SURGERY x 2 CHOLECYSTECTOMY LAMINECTOMY LAP,CHOLECYSTECTOMY (HISTORICAL) N/A 01/05/2023 WISDOM TOOTH EXTRACTION Admission Diagnosis: Patient Active Problem List Diagnosis Date Noted Alcohol induced acute pancreatitis without necrosis or infection 10/20/2023 Recurrent falls 07/01/2023 Alcohol abuse 06/22/2023 Severe malnutrition (CMS/HCC) (HCC) 04/11/2023 Severe alcohol use disorder (HCC) 04/02/2023 Alcohol withdrawal syndrome without complication (HCC) 04/02/2023 Gallbladder sludge 01/05/2023 RUQ pain 01/05/2023 Acute on chronic cholecystitis 01/05/2023 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) 01/05/2023 Acute kidney injury (HCC) 12/22/2022 DENNYS (acute kidney injury) (HCC) 12/22/2022 Chronic pain syndrome 11/06/2022 Complication of surgical procedure 11/06/2022 Intercostal pain 11/06/2022 Low back pain 11/06/2022 Mild recurrent major depression (HCC) 11/06/2022 Myalgia 11/06/2022 Right hip pain 11/06/2022 Shoulder joint pain 11/06/2022 Intractable nausea and vomiting 06/05/2022 Hypovolemia 06/04/2022 Chronic alcoholic hepatitis 06/04/2022 Postural dizziness with presyncope 06/04/2022 Hyponatremia 06/03/2022 Osteoarthritis of spine with radiculopathy, lumbar region 03/12/2018 Essential hypertension 08/26/2017 Diabetes (HCC) 08/26/2017 Cirrhosis (HCC) 08/26/2017 Asthma 08/26/2017 Thyroid disease 08/26/2017 SHAYLA (obstructive sleep apnea) 08/26/2017 HLD (hyperlipidemia) 08/26/2017 Hepatitis 08/26/2017 Lumbar stenosis 06/10/2017 Medical Precautions: No active isolations Proper PPE donned/doffed in accordance with facility standards. Fall Risk: Maurice Fall Risk Score: 35 (Medium Risk) Precautions/Restrictions: Seizure Precautions Family/Caregiver Present: none Overall Cognitive Status: WFL Overall Orientation Status: Oriented to Place and Oriented to Person Vision: no visual deficits Hearing: normal Social/Functional History Lives With: Spouse Type of Home: House Home Layout: Two level, Able to Live on Main level with bedroom/bathroom Home Access: Stairs to enter without rails Entrance Stairs - Number of Steps: 1 Bathroom Shower/Tub: Tub/Shower unit, Shower chair with back Bathroom Toilet: Standard Bathroom Equipment: Grab bars in shower Bathroom Accessibility: Accessible ADL Assistance: Needs assistance Homemaking Assistance: Needs assistance Homemaking Responsibilities: No Ambulation Assistance: Independent With device?: Yes Device: small base quad cane Transfer Assistance: Independent Active Environmental Field Office Manager: No Occupation: On disability Prior Level of Function ADL Assistance: Independent Ambulation Assistance: Independent Device(s) used: quad cane Transfer Assistance: Independent Objective Lower Extremity Assessment AROM: WFL PROM: WFL Strength: Exceptions: <3/5 observed functionally Bed Mobility: Supine to sit: Min Assist Sit to supine: Contact Guard Scooting: SBA Denies dizziness in sitting. Increased time to complete and Eliezer for trunk management. Transfers Sit to stand: Min Assist Stand to sit: Min Assist From EOB to FWW with Eliezer to complete. Denies dizziness. Demos increased tremors and rapid fatigue in standing. Completed a few lateral steps along EOB, however unable to attempt ambulation due to fatigue. Ambulation Did not assess this session. Outcome Measures AM-PAC How much HELP from another person do you currently need Turning from your back to your side while in a flat bed without using bedrails?: A Little Moving from lying on your back to sitting on the side of a flat bed without using bedrails?: A Little Moving to and from a bed to a chair (including a wheelchair)?: A Little Standing up from a chair using your arms (wheelchair or bedside chair)?: A Little Walking in a hospital room?: A Lot Stair climbing assessed?: No AM-PAC Inpatient Mobility Raw Score (No Stairs) : 14 Plan Pt would benefit from skilled acute PT services to address Strengthening, ROM, Balance Training, Functional Mobility Training, Endurance Training, Gait Training, Pain Management, Safety Education and Training, Patient/Caregiver Training, Equipment Evaluation/Education, and Positioning. Frequency: 5 visits Barriers: Decreased endurance Safety/Education Safety Safety Devices in place: All fall risk precautions in place, call light within reach, left in bed, gait belt, patient at risk for falls, and nurse notified Restraints: N/A Education Education Given To: patient Education Provided: PT Role, PT Goals, Plan of Care, Precautions, Transfer Training, Equipment, and Discharge Recommendations Education Method: Verbal and Demonstration Barriers to Learning: None Education Outcome: Continued Education Needed Goals Patient Stated Goal: Pt did not state. Encounter Problems Encounter Problems (Active) Balance Patient will maintain dynamic standing balance for 5 minutes with SBA in order to demonstrate decreased risk of falling. Start: 10/21/23 Expected End: 10/27/23 Exercise Patient will complete lower extremity exercises for 1-2 sets / 5-10 reps in order to improve strength and activity tolerance for mobility. Start: 10/21/23 Expected End: 10/27/23 Mobility Patient will ambulate 50 feet with SBA and least restrictive device in order to improve safety and independence with mobility. Start: 10/21/23 Expected End: 10/27/23 Transfers Patient will perform bed mobility with modified independence in order to improve independence and prepare for out of bed mobility. Start: 10/21/23 Expected End: 10/27/23 Patient will complete functional transfer with least restrictive device with SBA in order to prepare for ambulation. Start: 10/21/23 Expected End: 10/27/23 Therapy Time Individual Co-treatment Time In 1048 Time Out 1058 Minutes 10 Krystle Bull PT Patient's Physical Therapy Plan of Care supervision is transferred to a [facility] Therapy Services Physical Therapist. Goals and/or treatment plan was established in collaboration with patient/family/other representatives. documented in this encounter [facility] 10-27-2023 Note Formatting of this n ote might be different from the original. SW follow up. Met with patient at bedside, introduced self and role. Patient reports that he has completed HCPOA in the past. Reports that he has appointed his significant other, Kingsley as his HCPOA. Patient report he has signed paperwork awhile ago. Patient asking for SW to call and discuss this with Kingsley to verify. Spoke with Kingsley and she verifies that HCPOA has been completed. No other SW needs identified. SW remains available if any other needs or concerns arise. [facility] 10-27-2023 Miscellaneous Notes SW follow up. Met with patient at bedside, introduced self and role. Patient reports that he has completed HCPOA in the past. Reports that he has appointed his significant other, Kingsley as his HCPOA. Patient report he has signed paperwork awhile ago. Patient asking for SW to call and discuss this with Kingsley to verify. Spoke with Kingsley and she verifies that HCPOA has been completed. No other SW needs identified. SW remains available if any other needs or concerns arise. Transportation arranged through [facility] by cot set for 12 pm. Notified RN and TCC of transportation time. [facility]ified [facility] of [facility]. Will update patient at bedside. Patient does have a SW consult for HCPOA. Will complete HCPOA paperwork with patient prior to discharge. Patient Choice Patient Name: WOODY NI Date of : 1960 All Providers Sent Referral Name: [facility] - CPAN Member Phone: [phone] [address]: [address] [place] [address] [facility] per TCC request. 7000 was entered into [facility] for the SNF- Facility is aware Discharge order written. Tasked FLOUR TESTER to complete 7000 and send dc packet to [facility]. Did update primary care nurse and home health care social worker. . Updated attending that auth has been obtained for [facility]. Checking to determine if auth is good through tomorrow. . Images from the original note were not included. [facility] Palliative Care Transitions of Care Note Woody Ni : 1960 ADMIT DATE: 10/20/2023 DISCHARGE DATE: TBD PRIMARY CARE PHYSICIAN: Jani Quezada CODE STATUS: Full Code DISCHARGE DIAGNOSES: Principal Problem: Alcohol induced acute pancreatitis without necrosis or infection Active Problems: Severe alcohol use disorder (HCC) Alcohol withdrawal syndrome with complication (HCC) Repeated falls Moderate malnutrition (CMS/HCC) (HCC) HOSPITAL COURSE: Woody Ni is a 63 y.o. male with PMHx of Chronic back pain of last 25 yrs, Chronic alcohol abuse who was admitted to [facility] on 10/20/23 with complain of nausea, vomiting, abdominal pain. Patient admitted with diagnosis of acute pancreatitis. Patient was started on IVF, GI, Addiction medicine consult. Chronic pain - patient has chronic pain which he states is from his back and has been there for last 25 yrs - patient stated that his goal is for his back pain to be controlled - patient stated he has had 2 back surgeries, he is on disability - stated he used to go to pain management services but he was discharged from their practice because of his alcohol use - discussed with patient that since patient's pain is chronic and our team do not specialize in chronic pain management, our team would not be able to assist his pain Abdominal pain/nausea/vomiting/diarrhea - patient seen by GI team, per notes lipase is elevated suggesting pancreatitis Chronic alcohol abuse - patient has long history of alcohol abuse - patient seen by Joya from addition medicine program on 10/21, per his notes SW to finalize an addition treatment plan before discharge - per Dr. Hinson's notes he will likely need to go to SNF before he is accepted at a residential alcohol treatment facility CODE STATUS DISCUSSIONS: - met with patient this morning, introduced self and role - patient was awake, alert, oriented X 3, patient at this time has medical decision making capacity - discussed HCPOA, patient stated that his one and only friend Kingsley Carl of last 26 yrs and who he has been living with makes all his medical decisions - no official HCPOA document has been signed, will request assistance from home health care social worker - discussed CPR, intubation, vent - patient stated that he is not ready to give up, is not ready to - stated he wants everything possible to be done to save his life including CPR, intubation, vent - Code status remains Full Code - since patient has clearly established goals our team will sign off at this time DISPOSITION: TBD Follow up with PCP on patient to call. If appointment not scheduled, patient should be scheduled within 1 weeks. Reason for Outpatient/Home/ECF Palliative Care follow-up: N/A Opiate Prescribing Not prescribed by our team SIGNED: ERNESTINE MARTIN MD 10/26/2023, 9:32 AM Images from the original note were not included. Care Management Progress Note Remains on cont ivf, did receive iv ativan x 1 last pm and is still requiring iv morphine for pain. Continue to await auth for [facility]. Did call and request OT also see patient this am for insurance updates. .. Discharge Milestones and Delays Expected Date/Time: 10/25/[address] discharge order Complete med reconciliation Case mgmt discharge readiness Clinical Stability Diagnsotic Workup Expected Discharge History Expected Date/Time Set By Reviewed At 10/25/2023 Monica Scott RN 10/23/2023 8:51 AM ciwas protocol, addiction med, gi, will need auth for snf" 10/24/2023 Lea Gee RN 10/22/2023 8:32 AM ciwas protocol, addiction med, gi, will need auth for snf and choices." 10/23/2023 Kacie Benz DO 10/21/2023 5:41 PM 10/23/2023 Kacie Benz DO 10/20/2023 7:35 PM 10/23/2023 Khurram Bob MD 10/20/2023 6:20 PM Length of Stay (Days): 6 GMLOS: 4.7 Referral placed to [facility] via [facility] per TCC request. Await review and response regarding ability to accept. TCC notified. Care Managment Initial Assessment Date: 10/22/2023 Patient Name: Woody Ni : 1960 Patient Information Source of Information: Patient Name/Contact Information: KINGSLEY CARL [phone] SIGNIFICANT OTHER Cognition/Language: WFL - Within Functional Limits Permission given to speak with patient underwriting account representative/caregiver as indicated: Yes Confirmation of Payer with patient/family: Payer Name: [employer] MED[employer]AGE AND MEDICAID : Yes Confirmation of Primary Care Physician: Confirmed PCP Name: BRYANT Seen in last 2 years?: Yes Primary Caregiver: Self If assistance needed, confirmed caregiver ready, willing and able to care for patient at discharge: Yes Confirmed with: PER PATIENT HIS S.O. KINGSLEY Living Arrangements Current Residence: House Number of Floors 2 Number of Entry Steps: 3 Bed/Bath Levels: Both first floor Facility: Facility Name: [facility] Plan to Return: Comments ([place]) Lives with: Spouse/significant other, Children (SPOUSE AND 41 YR OLD STEP SON MARTIN MONTANEZ) Support Systems: Spouse/significant other, Children Activities of Daily Living Ambulation: Independent (FWW) Bathing/Dressing: Assistance Elimination/Continence/Toileting: Independent (BSC) Feeding: Independent Who Assists with Activities of Daily Living: NA Instrumental Activities of Daily Living Prescription Coverage: Yes Pharmacy Used: [facility] [place] Medication Management: Prescription pick-up Who assists with medication securing and setup?: KINGSLEY Transportation/Shopping: Assistance Provider Transportation/Shopping Assistance Provider Name: KINGSLEY Transportation Mode: Car Needs Assistance with Transportation at Discharge: Yes Meal Preparation: Assistance Provider Meal Prep Assistance Provider Name: KINGSLEY Laundry/Cleaning: Assistance Provider Laundry/Cleaning Assistance Provider Name: KINGSLEY Finances/Bill Paying: Assistance Provider Finances/Bill Payer Assistance Provider Name: KINGSLEY Communication: Independent Types of Care Services/Equipment Utilized Care Services: Dialysis Type: NA Durable Medical Equipment: Walker, Wheelchair (standard or power), Bedside Commode, Raised Toilet Seat, Shower Seat, Nebulizer Patient's Goal/Discharge Plan Patient expects to be discharged to: HOME WITH HHC VS SNF Discharge Planning Actions: Detention Facility referral indicated [place] of choice: [place] of choice discussed, Choice list provided Patient's Choice Rights and [employer] and Collaborative Relationships Disclosed as Indicated for Post-Acute Care: Interdisciplinary Team Engagement: PT/OT, Home Health Care Social Work Referral for: Additional Information: Inpatient status from home with etoh induced pancreatitis. Discharge preparation checklist reviewed with patient. He lives at home with significant other and his 41 year old step son. States uses fww and wc at home. States significant other assist with bathing and household tasks. Therapy is recommending snf. Did provide with snf list. States he will need to discuss with his significant other regarding if he will need snf upon discharge. Did call and spoke with Kingsley and she would like referral made to [facility]. Tasked [facility] to place referral to [facility] and requested that if they are able to accept to please submit for insurance authorization. . . Lea Gee RN Problem: Pain - Adult Goal: Verbalizes/displays adequate comfort level or baseline comfort level Outcome: Progressing Problem: Safety - Adult Goal: Free from fall injury Outcome: Progressing Problem: Discharge Planning Goal: Discharge to home or other facility with appropriate resources Outcome: Progressing Problem: Chronic Conditions and Co-morbidities Goal: Patient's chronic conditions and co-morbidity symptoms are monitored and maintained or improved Outcome: Progressing Problem: Knowledge Deficit Goal: Patient/family/caregiver demonstrates understanding of disease process, treatment plan, medications, and discharge instructions Outcome: Progressing Problem: Potential for Compromised Skin Integrity Goal: Skin Integrity is Maintained or Improved Outcome: Progressing Goal: Nutritional status is improving Outcome: Progressing Problem: Urinary Incontinence Goal: Perineal skin integrity is maintained or improved Outcome: Progressing The patient is Moderately Stable - Low risk of patient condition declining or worsening The patient's goals for the shift include rest The clinical goals for the shift include rest Admitted from home with alcohol induced pancreatitis. Admitted to telemetry unit. . GI and addiction med consulted. Started on phenobarbital taper, ivf, ciwa protocol, clear liquids and pt/ot. Ciwa score has ranged from 2-16 in last 24 hours. Last 12 hours has been 2. Did receive prn iv ativan 2 mg at 1830 last evening. Increased Neutropenia and thrombocytopenia this am. Sodium and potassium down. LFTs are improving. Therapy recommending snf. Will provide patient with snf list to review. Will need accepting facility and insurance auth prior to discharge... Problem: Pain - Adult Goal: Verbalizes/displays adequate comfort level or baseline comfort level Outcome: Progressing Problem: Safety - Adult Goal: Free from fall injury Outcome: Progressing Problem: Discharge Planning Goal: Discharge to home or other facility with appropriate resources Outcome: Progressing Problem: Chronic Conditions and Co-morbidities Goal: Patient's chronic conditions and co-morbidity symptoms are monitored and maintained or improved Outcome: Progressing The patient is Moderately Stable - Low risk of patient condition declining or worsening The patient's goals for the shift include The clinical goals for the shift include documented in this encounter [facility] 10-27-2023 Hospital course Narrative Discharge Summary Woody Ni : 1960 ADMIT DATE: 10/20/2023 DISCHARGE DATE: 10/27/2023 PRIMARY CARE PHYSICIAN: Jani Quezada VISIT STATUS: Admission CODE STATUS: Full Code DISCHARGE DIAGNOSES: Principal Problem: Alcohol induced acute pancreatitis without necrosis or infection Active Problems: Severe alcohol use disorder (HCC) Alcohol withdrawal syndrome with complication (HCC) Repeated falls Moderate malnutrition (CMS/HCC) (HCC) HOSPITAL COURSE: Woody Ni is a 63 y.o. male who presents to the emergency department with chief complaint of nausea and vomiting associated with upper abdominal pain. Patient has had nausea and vomiting for the past few days. The only thing he is drinking his alcohol. He has history of alcohol abuse. He has history of cirrhosis. He states he would like to quit drinking. Complains of persistent nausea and vomiting. Complains of upper abdominal discomfort. Denies chest pain or shortness of breath. States he received a phone call last week on outpatient laboratory studies done by his doctor that were abnormal but he does not know what the abnormal labs were. In the ER he was diagnosed with acute pancreatitis , his lipase was elevated he is being admitted for management and treatment . He was treated with iv fluids and pain meds. Addiction med saw him for etoh withdrawal and he was on phenobarbital. I had palliative see him as well because he was talking about just wanting to . He did speak with them but remains full code. His labs had improved he was eating a regular diet and he is being discharged to [facility] SIGNIFICANT DIAGNOSTIC STUDIES: Labs xrays CONSULTANTS: GI addiction med RECOMMENDED NEXT STEPS: snf DISCHARGE MEDICATIONS: Medication List START taking these medications folic acid 1 MG tablet Commonly known as: Folvite Take 1 tablet (1 mg) by mouth daily. Do not start before April 16, 2023. magnesium oxide 400 (240 Mg) MG tablet Commonly known as: Mag-Ox Take 2 tablets (800 mg) by mouth 2 times daily. nicotine 21 MG/24HR patch Commonly known as: Nicoderm, Step 1 Place 1 patch on the skin daily. oxyCODONE-acetaminophen 7.5-325 MG tablet Commonly known as: Percocet Take 1 tablet by mouth every 6 hours as needed for severe pain (7-10) for up to 5 days. pantoprazole 40 MG EC tablet Commonly known as: ProtoNix Take 1 tablet (40 mg) by mouth in the morning and 1 tablet (40 mg) in the evening. Take before meals. Do not crush, chew, or split.. CHANGE how you take these medications levothyroxine 50 MCG tablet Commonly known as: Synthroid, Levoxyl TAKE 1 TABLET BY MOUTH DAILY What changed: Another medication with the same name was removed. Continue taking this medication, and follow the directions you see here. potassium chloride ER 10 MEQ ER capsule Commonly known as: Micro-K What changed: Another medication with the same name was removed. Continue taking this medication, and follow the directions you see here. CONTINUE taking these medications albuterol 108 (90 Base) MCG/ACT inhaler alendronate 70 MG tablet Commonly known as: Fosamax amLODIPine 2.5 MG tablet Commonly known as: Norvasc calcium carbonate 500 MG chewable tablet Commonly known as: Tums Chew 1 tablet (500 mg) daily. Do not start before February 15, 2023. cyanocobalamin 1000 MCG/ML injection Commonly known as: Vitamin B-12 dicyclomine 20 MG tablet Commonly known as: Bentyl Take 1 tablet (20 mg) by mouth in the morning and 1 tablet (20 mg) at noon and 1 tablet (20 mg) in the evening. Take before meals. Alana-C tablet famotidine 20 MG tablet Commonly known as: Pepcid Take 1 tablet (20 mg) by mouth 2 times daily. fluticasone 50 MCG/ACT nasal spray Commonly known as: Flonase ipratropium-albuterol 0.5-2.5 mg/3 mL nebulizer solution Commonly known as: Duo-Neb ketoconazole 2 % shampoo Commonly known as: NIZOral losartan 100 MG tablet Commonly known as: Cozaar Take 1 tablet (100 mg) by mouth daily. Do not start before February 15, 2023. niacin 100 MG tablet nitroglycerin 0.4 MG SL tablet Commonly known as: Nitrostat olmesartan 40 MG tablet Commonly known as: BENIcar sodium chloride 1 g tablet Take 1 tablet (1 g) by mouth in the morning and 1 tablet (1 g) in the evening. Take with meals. tamsulosin 0.4 MG 24 hr capsule Commonly known as: Flomax thiamine 100 MG tablet Commonly known as: Vitamin B-1 Take 1 tablet (100 mg) by mouth daily. Do not start before April 16, 2023. STOP taking these medications colchicine 0.6 MG tablet PHENobarbital 64.8 MG tablet Commonly known as: Luminal predniSONE 20 MG tablet Commonly known as: Deltasone Where to Get Your Medications You can get these medications from any pharmacy Bring a paper prescription for each of these medications oxyCODONE-acetaminophen 7.5-325 MG tablet Information about where to get these medications is not yet available Ask your nurse or doctor about these medications magnesium oxide 400 (240 Mg) MG tablet nicotine 21 MG/24HR patch pantoprazole 40 MG EC tablet DIET: Adult diet Regular ACTIVITY: Up with assist COMPLEXITY OF FOLLOW UP: [] Moderate Complexity: follow up within 7-14 calendar days (66008) [] Severe Complexity: follow up within 7 calendar days (30646) FOLLOW UP TESTING, PENDING RESULTS OR REFERRALS AT TRANSITIONAL CARE VISIT: [] Yes [] No PENDING STUDIES: none DISPOSITION: Skilled Facility [facility] Follow up with Wild Rowe DO [address] [facility] [address] Schedule an appointment as soon as possible for a visit Peg to help with alcohol cravings [facility] IOP [address] [facility] [id number] Schedule an appointment as soon as possible for a visit Intensive Outpatient Program (IOP) for alcohol cessation counseling INSTRUCTIONS TO MA/SW: Please call patient on day after discharge (must document patient contacted within 2 business days of discharge). FOLLOW UP QUESTIONS FOR MA/SW: 1. Did you get medications filled and taking them as instructed from discharge? 2. Are you following your discharge instructions from your hospital stay? 3. Please confirm patient is scheduled for a follow up appointment within the above time frame. DISCHARGE TIME: > 30 minutes SIGNED: KACIE BENZ DO 10/27/2023, 9:00 AM documented in this encounter [facility] 10-27-2023 Note Formatting of this n ote might be different from the original. Transportation arranged through [facility] by cot set for 12 pm. Notified RN and TCC of transportation time. Notified Dakota [facility] of transportation via [employer]. Will update patient at bedside. Patient does have a SW consult for HCPOA. Will complete HCPOA paperwork with patient prior to discharge. [facility] 10-27-2023 Note Formatting of this n ote might be different from the original. Patient Choice Patient Name: WOODY NI Date of : 1960 All Providers Sent Referral Name: Dakota LIZ Member Phone: [phone] Address: [address] [place] [id number] [facility] [employer] 10-27-2023 Note Formatting of this n ote might be different from the original. Discharge med list transmitted to [facility] via [facility] per TCC request. 7000 was entered into [facility] for the SNF- Facility is aware [facility] 10-27-2023 Note Formatting of this n ote might be different from the original. Discharge order written. Tasked [employer] to complete 7000 and send dc packet to Dakota Rhodes. Did update primary care nurse and home health care social worker. . [facility] 10-26-2023 Note Formatting of this n ote might be different from the original. Updated attending that auth has been obtained for [facility]. Checking to determine if auth is good through tomorrow. . [facility] 10-26-2023 Note Formatting of this n ote is different from the original. Images from the original note were not included. [facility] Palliative Care Transitions of Care Note Woody Ni : 1960 ADMIT DATE: 10/20/2023 DISCHARGE DATE: TBD PRIMARY CARE PHYSICIAN: Jani Quezada CODE STATUS: Full Code DISCHARGE DIAGNOSES: Principal Problem: Alcohol induced acute pancreatitis without necrosis or infection Active Problems: Severe alcohol use disorder (HCC) Alcohol withdrawal syndrome with complication (HCC) Repeated falls Moderate malnutrition (CMS/HCC) (HCC) HOSPITAL COURSE: Woody Ni is a 63 y.o. male with PMHx of Chronic back pain of last 25 yrs, Chronic alcohol abuse who was admitted to [facility] on 10/20/23 with complain of nausea, vomiting, abdominal pain. Patient admitted with diagnosis of acute pancreatitis. Patient was started on IVF, GI, Addiction medicine consult. Chronic pain - patient has chronic pain which he states is from his back and has been there for last 25 yrs - patient stated that his goal is for his back pain to be controlled - patient stated he has had 2 back surgeries, he is on disability - stated he used to go to pain management services but he was discharged from their practice because of his alcohol use - discussed with patient that since patient's pain is chronic and our team do not specialize in chronic pain management, our team would not be able to assist his pain Abdominal pain/nausea/vomiting/diarrhea - patient seen by GI team, per notes lipase is elevated suggesting pancreatitis Chronic alcohol abuse - patient has long history of alcohol abuse - patient seen by Joya from addition medicine program on 10/21, per his notes SW to finalize an addition treatment plan before discharge - per Dr. Hinson's notes he will likely need to go to SNF before he is accepted at a residential alcohol treatment facility CODE STATUS DISCUSSIONS: - met with patient this morning, introduced self and role - patient was awake, alert, oriented X 3, patient at this time has medical decision making capacity - discussed HCPOA, patient stated that his one and only friend Kingsley Carl of last 26 yrs and who he has been living with makes all his medical decisions - no official HCPOA document has been signed, will request assistance from home health care social worker - discussed CPR, intubation, vent - patient stated that he is not ready to give up, is not ready to - stated he wants everything possible to be done to save his life including CPR, intubation, vent - Code status remains Full Code - since patient has clearly established goals our team will sign off at this time DISPOSITION: TBD Follow up with PCP on patient to call. If appointment not scheduled, patient should be scheduled within 1 weeks. Reason for Outpatient/Home/ECF Palliative Care follow-up: N/A Opiate Prescribing Not prescribed by our team SIGNED: ERNESTINE MARTIN MD 10/26/2023, 9:32 AM [facility] 10-26-2023 Consult note Associated Order (s): IP CONSULT TO PALLIATIVE CARE Images from the original note were not included. Palliative Care Initial Consult Chief Complaint: Woody Ni is a 63 y.o. male with chief complaint of nausea, vomiting , abdominal pain Palliative care consulted for goals of care Palliative Care is actively following. Assessment/Plan Goals of care - met with patient this morning, introduced self and role - patient was awake, alert, oriented X 3, patient at this time has medical decision making capacity - discussed HCPOA, patient stated that his one and only friend Kingsley Carl of last 26 yrs and who he has been living with makes all his medical decisions - no official HCPOA document has been signed, will request assistance from home health care social worker - discussed CPR, intubation, vent - patient stated that he is not ready to give up, is not ready to - stated he wants everything possible to be done to save his life including CPR, intubation, vent - Code status remains Full Code - since patient has clearly established goals our team will sign off at this time Chronic pain - patient has chronic pain which he states is from his back and has been there for last 25 yrs - patient stated that his goal is for his back pain to be controlled - patient stated he has had 2 back surgeries, he is on disability - stated he used to go to pain management services but he was discharged from their practice because of his alcohol use - discussed with patient that since patient's pain is chronic and our team do not specialize in chronic pain management, our team would not be able to assist his pain Abdominal pain/nausea/vomiting/diarrhea - patient seen by GI team, per notes lipase is elevated suggesting pancreatitis Chronic alcohol abuse - patient has long history of alcohol abuse - patient seen by Joya from addition medicine program on 10/21, per his notes SW to finalize an addition treatment plan before discharge - per Dr. Hinson's notes he will likely need to go to SNF before he is accepted at a residential alcohol treatment facility Palliative Care Encounter - will continue to follow for ongoing monitoring of progression of Dyspnea, Pain, and Constipation as well as for appropriateness for hospice care due to Acute pancreatitis - will continue to evaluate test results related to Acute pancreatitis , medication effectiveness for Pain and Agitation, response to treatment of Acute pancreatitis Total of 85 minutes spent on this encounter including Chart review, Patient visit and exam, Documentation in EHR, Care coordination, and Communicating with primary attending or other consultants. Discharge planning: Ready for discharge from Palliative Care perspective, no follow-up needed Patient meets criteria for general inpatient hospice care including the following: N/A - Palliative Care Patient Referrals to: None Discussed patient and the plan of care with the other interdisciplinary team (IDT) members of Palliative Care Team, and with Patient Subjective: Hospital days prior to consult: 6 days Trauma Consult: no. (If yes, please add .traumapall dotphrase for tracking purposes.) Subjective/Events Woody Ni is a 63 y.o. male with PMHx of Chronic back pain of last 25 yrs, Chronic alcohol abuse who was admitted to [facility] on 10/20/23 with complain of nausea, vomiting, abdominal pain. Patient admitted with diagnosis of acute pancreatitis. Patient was started on IVF, GI, Addiction medicine consult. Pain Assessment (If Pain Scale >0) Description: sharp Duration: year(s) Frequency:Daily Location: back Alleviating Factors: pain medication Exacerbating Factors: movement Effect:Change in Function, Interference with Activities, Sleep, and Mood Goals of care:Cure and Live Longer Advance Directives: Full Code Surrogate: Friend Prognosis: depends upon goals Spiritual assessment: No spiritual distress identified Bereavement and grief: Low Risk Bereavement 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 Nausea and vomiting 12/22/22-12/26/22 admitted at [facility] Pain management Sleep apnea noncompliant with device Past Surgical History: Procedure Laterality Date BACK SURGERY x 2 CHOLECYSTECTOMY LAMINECTOMY LAP,CHOLECYSTECTOMY (HISTORICAL) N/A 01/05/2023 WISDOM TOOTH EXTRACTION Family History Problem Relation Name Age of Onset Depression Mother Depression Maternal Grandmother Unable to obtain family history due to N/A- family history available Allergies Allergen Reactions Allopurinol Other Breaks out in blisters Codeine Nausea Only Penicillin G Swelling Review of Systems ROS: See palliative care ROS/ESAS below; All other systems were reviewed and are negative. [place] Symptom Assessment Score [place] Score Pain Score 9 Tiredness Score 6 Nausea Score 3 Depression Score 0 Anxiety Score 0 Drowsiness Score 0 Anorexia Score (0= eating well, 10= not eating) 6 Wellbeing Score (10= worst sense of well-being) 8 Constipation 0 Dyspnea Score (0= no shortness of breath) 0 FLACC Scale (For Pain Assessment of the Non-Verbal Patient) Patient verbal Assessed by: provider. Social history: [place] status: yes, served in [employer] Marital status: co-habitating Living status: with friend Work history: on disability Advance Care Planning: The patient has capacity to make healthcare and advanced care planning decisions Yes The patient's identified surrogate decision maker is Friend. Discussion participants: Provider - myself and PatientDiagnosis and Prognosis, Goals of Care, Treatment Options, Advanced Care Planning, and Prior Expressed Wishes We discussed goals of care related to the patient's current health as documented below: - see A and P We discussed [id number] concerns identified by the patient/surrogate, including - see A and P Interventions reviewed: Resuscitation procedures (CPR), Mechanical ventilator support, and Diagnostic testing Advance Care Planning Documents: Healthcare Power of [employer] Consultant: Not completed Financial Power of [employer] Engine [employer] Consultant: Other Unknown Living Will: Not completed Code Status: Full Code In addition to the time spent evaluating and managing the patient's medical diagnoses above, 15 minutes of this encounter was spent discussing advanced care planning documented above. Please bill [id number] for 16-46 minutes and add additional [id number] for >46 minutes. Family Meeting: Participants: patient Family meeting was held to discuss:Diagnosis and Prognosis, Goals of Care, Treatment Options, Symptom Management, Advanced Care Planning, and Prior Expressed Wishes Objective: Physical Exam BP (!) 132/91 (BP Location: Left arm, Patient Position: Sitting) Pulse 104 Temp 36.5 C (97.7 F) (Temporal) Resp 18 Ht 5' 10" (1.778 m) Wt 160 lb (72.6 kg) SpO2 98% BMI 22.96 kg/m Physical Exam Constitutional: Appearance: He is ill-appearing. HENT: Head: Normocephalic and atraumatic. Right Ear: External ear normal. Nose: Nose normal. Mouth/Throat: Mouth: Mucous membranes are moist. Eyes: General: No scleral icterus. Pupils: Pupils are equal, round, and reactive to light. Cardiovascular: Rate and Rhythm: Regular rhythm. Tachycardia present. Pulses: Normal pulses. Heart sounds: Normal heart sounds. No murmur heard. Pulmonary: Breath sounds: No stridor. No wheezing or rhonchi. Comments: Bilateral basal crackles present Abdominal: General: Bowel sounds are normal. Palpations: Abdomen is soft. Musculoskeletal: General: No swelling. Cervical back: Normal range of motion and neck supple. Right lower leg: No edema. Left lower leg: No edema. Skin: General: Skin is warm. Coloration: Skin is not jaundiced. Neurological: Mental Status: He is alert and oriented to person, place, and time. Motor: Weakness present. Psychiatric: Comments: No agitation Current Medications: Inpatient medications reviewed: yes Home medications reviewed: yes OARRS Reviewed: Yes-03/12/23 Oxycodobe 10 mg # 120 24 Hour PRN Meds: Percocet 7.5/325 mg x 1, Morphine 4 mg IV X 4 Results/Verification of Data Review Objective data reviewed (be specific which labs, imaging reports with dates reviewed): - labs, imaging, OARRS reviewed 10/26/23 Data in Support of Terminal Illness: Is patient hospice appropriate? TBD Transition Note Initiated: yes. [facility] [employer] Phone: 10-26-2023 Consult note Associated Order (s): IP CONSULT TO PALLIATIVE CARE Images from the original note were not included. Palliative Care Initial Consult Chief Complaint: Woody Ni is a 63 y.o. male with chief complaint of nausea, vomiting , abdominal pain Palliative care consulted for goals of care Palliative Care is actively following. Assessment/Plan Goals of care - met with patient this morning, introduced self and role - patient was awake, alert, oriented X 3, patient at this time has medical decision making capacity - discussed HCPOA, patient stated that his one and only friend Kingsley Carl of last 26 yrs and who he has been living with makes all his medical decisions - no official HCPOA document has been signed, will request assistance from home health care social worker - discussed CPR, intubation, vent - patient stated that he is not ready to give up, is not ready to - stated he wants everything possible to be done to save his life including CPR, intubation, vent - Code status remains Full Code - since patient has clearly established goals our team will sign off at this time Chronic pain - patient has chronic pain which he states is from his back and has been there for last 25 yrs - patient stated that his goal is for his back pain to be controlled - patient stated he has had 2 back surgeries, he is on disability - stated he used to go to pain management services but he was discharged from their practice because of his alcohol use - discussed with patient that since patient's pain is chronic and our team do not specialize in chronic pain management, our team would not be able to assist his pain Abdominal pain/nausea/vomiting/diarrhea - patient seen by GI team, per notes lipase is elevated suggesting pancreatitis Chronic alcohol abuse - patient has long history of alcohol abuse - patient seen by Joya from addition medicine program on 10/21, per his notes SW to finalize an addition treatment plan before discharge - per Dr. Hinson's notes he will likely need to go to SNF before he is accepted at a residential alcohol treatment facility Palliative Care Encounter - will continue to follow for ongoing monitoring of progression of Dyspnea, Pain, and Constipation as well as for appropriateness for hospice care due to Acute pancreatitis - will continue to evaluate test results related to Acute pancreatitis , medication effectiveness for Pain and Agitation, response to treatment of Acute pancreatitis Total of 85 minutes spent on this encounter including Chart review, Patient visit and exam, Documentation in EHR, Care coordination, and Communicating with primary attending or other consultants. Discharge planning: Ready for discharge from Palliative Care perspective, no follow-up needed Patient meets criteria for general inpatient hospice care including the following: N/A - Palliative Care Patient Referrals to: None Discussed patient and the plan of care with the other interdisciplinary team (IDT) members of Palliative Care Team, and with Patient Subjective: Hospital days prior to consult: 6 days Trauma Consult: no. (If yes, please add .traumapall dotphrase for tracking purposes.) Subjective/Events Woody Ni is a 63 y.o. male with PMHx of Chronic back pain of last 25 yrs, Chronic alcohol abuse who was admitted to [facility] on 10/20/23 with complain of nausea, vomiting, abdominal pain. Patient admitted with diagnosis of acute pancreatitis. Patient was started on IVF, GI, Addiction medicine consult. Pain Assessment (If Pain Scale >0) Description: sharp Duration: year(s) Frequency:Daily Location: back Alleviating Factors: pain medication Exacerbating Factors: movement Effect:Change in Function, Interference with Activities, Sleep, and Mood Goals of care:Cure and Live Longer Advance Directives: Full Code Surrogate: Friend Prognosis: depends upon goals Spiritual assessment: No spiritual distress identified Bereavement and grief: Low Risk Bereavement Past Medical History: Diagnosis Date Acid reflux Alcoholism (CMS/HCC) ([facility]) Anxiety Back pain Chronic pain syndrome Cirrhosis (HCC) Dehydration 12/22/22-12/26/22 admitted to [facility] Depression Diabetes mellitus (HCC) Gout Hepatitis C Hypertension Hyponatremia 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 Nausea and vomiting 12/22/22-12/26/22 admitted at [facility] Pain management Sleep apnea noncompliant with device Past Surgical History: Procedure Laterality Date BACK SURGERY x 2 CHOLECYSTECTOMY LAMINECTOMY LAP,CHOLECYSTECTOMY (HISTORICAL) N/A 01/05/2023 WISDOM TOOTH EXTRACTION Family History Problem Relation Name Age of Onset Depression Mother Depression Maternal Grandmother Unable to obtain family history due to N/A- family history available Allergies Allergen Reactions Allopurinol Other Breaks out in blisters Codeine Nausea Only Penicillin G Swelling Review of Systems ROS: See palliative care ROS/ESAS below; All other systems were reviewed and are negative. [place] Symptom Assessment Score [place] Score Pain Score 9 Tiredness Score 6 Nausea Score 3 Depression Score 0 Anxiety Score 0 Drowsiness Score 0 Anorexia Score (0= eating well, 10= not eating) 6 Wellbeing Score (10= worst sense of well-being) 8 Constipation 0 Dyspnea Score (0= no shortness of breath) 0 FLACC Scale (For Pain Assessment of the Non-Verbal Patient) Patient verbal Assessed by: provider. Social history: [place] status: yes, served in [employer] Marital status: co-habitating Living status: with friend Work history: on disability Advance Care Planning: The patient has capacity to make healthcare and advanced care planning decisions Yes The patient's identified surrogate decision maker is Friend. Discussion participants: Provider - myself and PatientDiagnosis and Prognosis, Goals of Care, Treatment Options, Advanced Care Planning, and Prior Expressed Wishes We discussed goals of care related to the patient's current health as documented below: - see A and P We discussed [id number] concerns identified by the patient/surrogate, including - see A and P Interventions reviewed: Resuscitation procedures (CPR), Mechanical ventilator support, and Diagnostic testing Advance Care Planning Documents: Healthcare Power of Search Engine Optimization Consultant: Not completed Financial Power of Search Engine Optimization Consultant: Other Unknown Living Will: Not completed Code Status: Full Code In addition to the time spent evaluating and managing the patient's medical diagnoses above, 15 minutes of this encounter was spent discussing advanced care planning documented above. Please bill [id number] for 16-46 minutes and add additional [id number] for >46 minutes. Family Meeting: Participants: patient Family meeting was held to discuss:Diagnosis and Prognosis, Goals of Care, Treatment Options, Symptom Management, Advanced Care Planning, and Prior Expressed Wishes Objective: Physical Exam BP (!) 132/91 (BP Location: Left arm, Patient Position: Sitting) Pulse 104 Temp 36.5 C (97.7 F) (Temporal) Resp 18 Ht 5' 10" (1.778 m) Wt 160 lb (72.6 kg) SpO2 98% BMI 22.96 kg/m Physical Exam Constitutional: Appearance: He is ill-appearing. HENT: Head: Normocephalic and atraumatic. Right Ear: External ear normal. Nose: Nose normal. Mouth/Throat: Mouth: Mucous membranes are moist. Eyes: General: No scleral icterus. Pupils: Pupils are equal, round, and reactive to light. Cardiovascular: Rate and Rhythm: Regular rhythm. Tachycardia present. Pulses: Normal pulses. Heart sounds: Normal heart sounds. No murmur heard. Pulmonary: Breath sounds: No stridor. No wheezing or rhonchi. Comments: Bilateral basal crackles present Abdominal: General: Bowel sounds are normal. Palpations: Abdomen is soft. Musculoskeletal: General: No swelling. Cervical back: Normal range of motion and neck supple. Right lower leg: No edema. Left lower leg: No edema. Skin: General: Skin is warm. Coloration: Skin is not jaundiced. Neurological: Mental Status: He is alert and oriented to person, place, and time. Motor: Weakness present. Psychiatric: Comments: No agitation Current Medications: Inpatient medications reviewed: yes Home medications reviewed: yes OARRS Reviewed: Yes-03/12/23 Oxycodobe 10 mg # 120 24 Hour PRN Meds: Percocet 7.5/325 mg x 1, Morphine 4 mg IV X 4 Results/Verification of Data Review Objective data reviewed (be specific which labs, imaging reports with dates reviewed): - labs, imaging, OARRS reviewed 10/26/23 Data in Support of Terminal Illness: Is patient hospice appropriate? TBD Transition Note Initiated: yes. Associated Order(s): IP CONSULT TO HEM/ONC This is dictation of a consultation on a Woody Ni. Patient of Dr. Benz currently 454 bed B. This is a 63-year-old white male presented to [facility] ER 10/20/2023 with complaints of nausea, vomiting, and upper abdominal pain. Patient has a history of approximately 18 cans of beer on a daily basis consisting of "tall boys". During the course of evaluation patient was noted to have thrombocytopenia and I have been asked to assess. Patient was seen in consultation June 2023 for similar hematological findings. Prior to June 2023 patient denied any prior hematological disorder. Patient denied any prior hematological evaluation. Patient currently has no weight loss, fevers, chills, or night sweats. Past medical history includes acid reflux, alcoholism, anxiety, back pain, chronic pain syndrome, cirrhosis, dehydration, depression, diabetes mellitus, gout, hepatitis C, hypertension, hyponatremia, hypothyroidism, skilled nursing prescription opioid use, nausea and vomiting, pain management, and sleep apnea. Patient is noncompliant with CPAP. Past surgical history includes back surgery x 2, cholecystectomy, laminectomy, and remote history of teeth extraction. Patient denies any bleeding or thrombotic events associated with surgical procedures. Patient denies any episode of thrombophilia. Other than bruising patient denies any active bleeding diathesis including mopped assist, hematic emesis, bright red blood per rectum, melanotic stool, or hematuria. Patient's last colonoscopy was 15 years ago. 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 Patient denies any XRT exposure. Patient has had delirium tremens in the past with visual hallucinations. Otherwise patient's review of systems is negative for 10 systems. Patient family psychosocial history. Patient lives in the home environment assisted by server security administrator family members. Objective examination shows middle-aged white male, chronically debilitated, alert and appropriate. BMI of 22.96. HEENT is without pathological adenopathy. Lungs coarse breath sounds few basal crackles. Heart shows an S1-S2 tachycardia. The abdomen is soft distended no palpable organomegaly. Some left upper quadrant tenderness to palpation. Groin/Fem without adenopathy. Extremities show chronic stasis changes. Skin shows traumatic purpura. Breast show gynecomastia. Neurological fails to reveal any focal neurological sign Labs shows a hemoglobin 9.1 hematocrit 27.3 white count 2.0 MCV of 100.6 platelets 36,000. Sodium 129 potassium 3.2 BUN 5 creatinine 0.59 GFR greater than 90 cc/min glucose 121 calcium 8.1 total protein 7.0 albumin 3.8 alk phos 84 AST 153 AST 63 total bilirubin 3.1 troponin 0.012. Platelet morphology is normal. WBC morphology is normal. SARS COVID 2 by PCR not detected. Influenza A and Influenza B by PCR not detected. RSV by PCR not detected. Urinalysis specific gravity is 1.006.. Urobilinogen is normal. Leukocyte Estrace is negative. Alcohol level at admission was 0.390. Drug screen was otherwise negative. Chest x-ray reveals a cardiomediastinal silhouette stable. Lungs are clear. No sizable pleural effusions. EKG shows normal sinus rhythm with right bundle branch block and left anterior fascicular block. No significant changes compared to previous studies. IMPRESSION and PLAN: Middle-aged white male with pancytopenia with evidence for acute on chronic thrombocytopenia. Suspect the patient has component of chronic thrombocytopenia dating from at least the last 2 years associated with steatosis and possibly splenic sequestration. Acute pancytopenia is most likely reflective of bone marrow suppression associated with high active use of alcohol at the time of admission. Suspect that pancytopenia should improve with cessation of further alcohol use. No indication for platelet transfusion unless active bleed or platelet count less than 10,000. Otherwise concur with current measures. Will continue to monitor. Extensive discussion with patient and staff genetic counselor. Patient represents a case of high complexity medical decision making. Signature: Jose Ellsworth MD Associated Order(s): Inpatient consult to Gastroenterology Images from the original note were not included. GI CONSULTATION Patient: Woody Ni : 1960 Primary Care Physician: Jani Quezada Inpatient consult to Gastroenterology Consult performed by: Ana Callaway MD Consult ordered by: Kacie Benz DO REASON FOR CONSULTATION: Acute alcoholic pancreatitis HISTORY OF PRESENT ILLNESS: Woody Ni is a 63 y.o. male with PMH below who presented to the ER complaining of abdominal pain and nausea/vomiting/diarrhea. Patient reports that he was in his usual state of health when on Thursday he began to get upper abdominal pain. Reports this was a sharp stabbing pain radiating to the back. On a pain scale he rates it a 10 out of 10. Eventually he began to have nausea and vomiting as well as some occasional diarrhea. Pain persisted and he reported that it felt similar to previous episodes of pancreatitis. Patient has a history of alcohol abuse and continues to drink. In the ER labs showed: Sodium 133, potassium 4.3, BUN 12, creatinine 0.71, lipase 615, total bilirubin 1.4, alkaline phosphatase 105, AST 250, ALT 85, WBC 5.2, hemoglobin 13.1, MCV 98.2, platelet 76. Patient was admitted for further evaluation management. 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 He has quit using smokeless tobacco. ETOH: reports current alcohol use of about 42.0 standard drinks of alcohol per week. DRUGS: reports current drug use. Drug: Marijuana. Medications: Prior to Admission medications Medication Sig Start Date End Date Taking? Authorizing Provider albuterol 108 (90 Base) MCG/ACT inhaler Inhale 1 puff every 4 hours as needed. Historical Provider, alendronate (Fosamax) 70 MG tablet Take 70 mg by mouth once a week. 05/19/17 Historical Provider, amLODIPine (Norvasc) 2.5 MG tablet Take 2.5 mg by mouth in the morning. 05/27/17 Historical Provider, Bioflavonoid Products (Alana-C) tablet Every 24 hours. Historical Provider, calcium carbonate (Tums) 500 MG chewable tablet Chew 1 tablet (500 mg) daily. Do not start before February 15, 2023. 02/15/23 02/15/24 Kacie Benz DO cyanocobalamin (Vitamin B-12) 1000 MCG/ML injection 1 mL intramuscularly once a month Historical Provider, dicyclomine (Bentyl) 20 MG tablet Take 1 tablet (20 mg) by mouth in the morning and 1 tablet (20 mg) at noon and 1 tablet (20 mg) in the evening. Take before meals. 11/07/22 11/07/23 Beryl Holder PA-C famotidine (Pepcid) 20 MG tablet Take 1 tablet (20 mg) by mouth 2 times daily. 04/15/23 04/14/24 Ced Koenig MD fluticasone (Flonase) 50 MCG/ACT nasal spray Administer 1 spray into each nostril daily as needed. 04/27/17 Historical ProviderMD folic acid (Folvite) 1 MG tablet Take 1 tablet (1 mg) by mouth daily. Do not start before April 16, 2023. 04/16/23 04/15/24 Ced Koenig MD ipratropium-albuterol (Duo-Neb) 0.5-2.5 mg/3 mL nebulizer solution every 6 hours. Historical Provider, ketoconazole (NIZOral) 2 % shampoo EVERY THREE DAYS 11/18/19 Historical Provider, levothyroxine (Synthroid, Levoxyl) 50 MCG tablet TAKE 1 TABLET BY MOUTH DAILY 06/06/22 06/06/23 Nicolas Qiu losartan (Cozaar) 100 MG tablet Take 1 tablet (100 mg) by mouth daily. Do not start before February 15, 2023. 02/15/23 02/15/24 Kacie Benz DO niacin 100 MG tablet Every 24 hours. Historical Provider, nitroglycerin (Nitrostat) 0.4 MG SL tablet 1 tab(s) sublingually every 5 minutes x 3 doses prn Historical Provider, PHENobarbital (Luminal) 64.8 MG tablet Take 1 tablet (64.8 mg) by mouth every 4 hours. 06/26/23 07/26/23 Kacie Benz DO potassium chloride ER (Micro-K) 10 MEQ ER capsule Take 10 mEq by mouth in the morning. 03/30/17 Historical Provider, sodium chloride 1 g tablet Take 1 tablet (1 g) by mouth in the morning and 1 tablet (1 g) in the evening. Take with meals. 02/14/23 02/14/24 Kacie Benz DO tamsulosin (Flomax) 0.4 MG 24 hr capsule Take 0.4 mg by mouth daily. 01/27/22 Historical Provider, thiamine (Vitamin B-1) 100 MG tablet Take 1 tablet (100 mg) by mouth daily. Do not start before April 16, 2023. 04/16/23 Ced Koenig MD @MEDCMED@ ALLERGIES: Allergies Allergen Reactions Allopurinol Other Breaks out in blisters Codeine Nausea Only Penicillin G Swelling REVIEW OF SYSTEMS: No fever, chills, or sweats. Normal appetite and weight. No GRANADOS, visual disturbance, eye pain, jaundice, sore throat or mouth ulcers. No skin rash or itching. No CP, SOB, TABOR, cough or wheeze. No urinary frequency, urgency, hematuria, or dysuria. No myalgia, arthralgia, or joint swelling. No weakness, numbness, or confusion. GI per HPI. No polyuria, polydipsia, heat or cold intolerance. PHYSICAL EXAM: VS: BP (!) 140/86 Pulse 102 Temp 37.3 C (99.2 F) (Oral) Resp 16 SpO2 96% There is no height or weight on file to calculate BMI. GENERAL: Pleasant and NAD. HEENT: NCAT, PERRLA, EOMI, Scleral anicteric. Oropharhynx clear with no erythema or exudate. Neck supple, no cervical LAD or thyromegaly. CV: RRR, NL S1/S2, no murmurs. Distal pulses palpable and equal b/l. LUNGS: CTA b/l. Normal percussion and palpation. No W/R/R. Abdomen: + BS, soft, epigastric TTP. non-distended. No hepatosplenomegaly. No mass felt. No rebound or guarding. No hernia. Extremities: No C/C/E. No muscle atrophy. Skin: No skin lesion or breakdown. Lymph: No cervical or supraclavicular LAD. Musculoskeletal: Strength 5/5 in all exts. No joint tenderness or effusions in LEs. Neurologic: A&O x 3, CN II-XII grossly intact. No asterixis. Non-focal. Psych: Normal affect and speech. LABS AND IMAGING: Recent blood work and relevant radiologic and endoscopic studies were reviewed and discussed with the patient. CBC: Recent Labs 10/20/23171810/21/23 0641 WBC 5.2 4.6 HGB 13.1 12.0* HCT 38.3* 34.9* PLT 76* 51* HEPATIC: Recent Labs 10/20/23171810/20/23 2243 AST 250* 207* ALT 85* 71* BILITOT 1.4* 1.2 ALKPHOS 105 80 LIPASE/AMYLASE: Recent Labs 10/20/23224210/21/23 1122 LIPASE 537* 483* LACTATE: No lab exists for component: "LACTA" BNP: No results for input(s): "BNP" in the last 72 hours. INR: No results for input(s): "INR" in the last 72 hours. ECG 12 lead Sinus rhythm RBBB and LAFB No significant changes compared to previous Electronically Signed On 10-20-2023 18:25:24 EST by Khurram Bob XR chest 1 view Narrative: Patient Name: WOODY NI : 1960 Exam Date/Time: 10/20/2023 17:10 Procedure: XR CHEST 1 VIEW Ordering Provider: BOB KEVIN Reason For Exam: ABDOMINAL PAIN CHEST CLINICAL INDICATION: Abdominal pain TECHNIQUE: AP portable chest COMPARISON: 06/25/2023 Impression: FINDINGS AND IMPRESSION: SUPPORT DEVICES: None OSSEOUS STRUCTURES: Unremarkable. HEART AND MEDIASTINUM: The cardiomediastinal silhouette appears unchanged from the prior exam. LUNGS AND PLEURA: The lungs are clear. No sizable pleural effusion. Report Dictated on Electronically Signed By: Richie Morrison MD Electronically Signed Date/Time: 10/20/2023 5:24 PM EST IMPRESSION / RECOMMENDATIONS: Hyperlipidemia Diabetes Obstructive sleep apnea Marijuana use Alcohol abuse -CIWA -Thiamine and folic acid - addiction medicine following -Encourage complete cessation of all alcohol Thrombocytopenia Macrocytic anemia Abdominal pain/nausea/vomiting/diarrhea: Lipase is elevated suggesting pancreatitis. This would likely be related to alcohol use EGD 06/05/2022: Normal duodenum. Mild gastritis. Normal esophagus with questionable decreased motility. -IV hydration -Supportive therapies per primary service -Monitor LFTs/lipase -Clear liquid diet until patient has some improvement in abdominal pain. Currently rating it a 10 out of 10. -Monitor electrolytes and replace as needed -Antiemetics and analgesics per primary service (Comment: Please note this report has been produced using speech recognition software and may contain errors related to that system including errors in grammar, punctuation, and spelling, as well as words and phrases that may be inappropriate. If there are any questions or concerns please feel free to contact the dictating provider for clarification.) Associated Order(s): IP CONSULT TO ADDICTION MEDICINE Images from the original note were not included. ADDICTION MEDICINE CONSULTATION H&P Patient: Woody Ni Admit Date: 10/20/2023 Primary Care Physician: Jani Quezada Reason for Consultation: "ETOH abuse." HISTORY OF PRESENT ILLNESS Chief Complaint Patient presents with Vomiting Pt comes to the ed today due to vomiting pts family states he is a heavy drinker pt is positive ETOH aprox 18 beers pt states he would like to speak to someone about resources to quit drinking pt is nauseous in triage. Woody Ni is a 63 y.o. obese, white male with a PMH of DM, Hep C, cirrhosis, hypothyroidism, gout, chronic back pain, SHAYLA, depression, previous history of prescription opioid use that was admitted for alcohol withdrawal management. He also has concerns regarding placement due to recurrent falls, generalized weakness, and an ability to take care of himself. This is occurring in the context of alcoholism. He was admitted back in June 2023 for the same reason. Case management was attempting to find him placement at a SNF at that time but he ended up leaving AMA before that could be finalized. It seems he resumed drinking immediately after leaving then and has continued to drink since. Continues to have functional limitations with repeated falls and an inability to care for himself. PT has recommended he go directly to a SNF again after this hospitalization. From a previous consultation note in June 2023: He was discharged directly to [facility] for assisted due to generalized weakness, ambulation issues, etc. He was having frequent falls at home prior to that admission. Unfortunately, it seems he left AMA from that facility within a day or so and resumed drinking immediately. It seems his family brought him back to the ED. Of note, patient had liver biopsy while admitted at [facility] in 12/2022 and findings consistent with liver cirrhosis. Patient was receiving opioids for chronic pain from a pain management facility but around February 2023 he was dismissed from that program due to alcohol use while receiving prescription opioids. He no longer receives opioids for pain, and it seems his alcohol use has escalated to compensate for a lack of narcotics for pain control. He has now been admitted to a hospital at least 4 times since then for the same issues. He has never pursued professional chemical dependency treatment after any of those admissions and usually leaves AMA. Woody Ni states that he is having withdrawal symptoms now. On admission, a urine drug screen was negative, and a serum alcohol level was 390 on 10/20/23 @ 1719. Liver enzymes were elevated, and Na was 133 on admission. Lipase was elevated at 615 on admission. Abdominal pain is ongoing but improved. SUBSTANCE USE HISTORY Brief Substance Use Narrative Patient reports that he for started drinking alcohol when he was 16 years old. 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 Patient denies any history withdrawal seizures, or DTs. Patient does report history of falls while intoxicated including hitting his head during these falls. He has also been diagnosed with numerous biopsychosocial problems related to alcoholism including liver cirrhosis, recurrent falls, thrombocytopenia, etc... Patient is currently drinking to the point of intoxication, blackouts, and vomiting. Patient denies any history of MAT for substance use disorder, engagement in IOP or AA. He did receive chronic narcotic therapy for back issues for years, but did continue drinking while receiving those narcotics and was dismissed from that clinic around 02/2023. Otherwise, he denies abusing opioids or any other drugs. Current Substance Use Alcohol: about a case, 24 cans of 12 oz beer, daily. Amphetamines: denies. Benzos: denies. Cocaine: denies. Hallucinogens: denies. Marijuana: denies, but has admitted in the past. Nicotine: daily. Opioids: formerly prescribed narcotics, not since February 2023. Treatment History Inpatient Rehab: denies. Chem Dep IOP: denies. Detoxifications: several at [facility] but usually leaves [facility] Step Meetings: denies. Medication Assisted Treatment: denies. Consequences [] IVDA. [x] Blackouts related to substance use. [] History of withdrawal seizures. [] History of delirium tremens. [] History of overdoses. [] Legal consequences of substance use. Substance Use Disorder Criteria 2-3 = mild; 4-5 = moderate; 6 or >6 = severe substance use disorder [x] Taking substance in larger amounts and/or for longer than intended. [x] Wanting to cut down or quit but not being able to. [x] Spending a lot of time obtaining the substance. [x] Craving or a strong desire to use substance. [x] Repeatedly doesn't carry out major obligations due to substance use. [x] Using despite recurring social or interpersonal problems. [x] Reducing social, occupational, or recreational activities. [x] Recurrent use in physically hazardous situations. [x] Consistent use despite recurrent physical or psychological difficulties. [x] Tolerance (increased amounts to achieve intoxication or diminished effect). [x] Withdrawal syndrome or the substance is used to avoid withdrawal. REMAINING HISTORY Psychiatric History Current Psychiatrist: denies Current Medications: denies Diagnoses: denies but likely meets criteria for depression Previous Medication Trials: denies Psychiatric Hospitalizations: denies Previous Suicide Attempts: denies Adverse Childhood Events: denies Trauma History: likely History of Head Injuries: yes Past Medical History 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 Nausea and vomiting 12/22/22-12/26/22 admitted at [facility] Pain management Sleep apnea noncompliant with device Past Surgical History Past Surgical History: Procedure Laterality Date BACK SURGERY x 2 CHOLECYSTECTOMY LAMINECTOMY LAP,CHOLECYSTECTOMY (HISTORICAL) N/A 01/05/2023 WISDOM TOOTH EXTRACTION Family History Family History Problem Relation Name Age of Onset Depression Mother Depression Maternal Grandmother Social Determinants of Health Tobacco Use: High Risk (07/01/2023) Patient History Smoking Tobacco Use: Every Day Smokeless Tobacco Use: Former Passive Exposure: Not on file Alcohol Use: Alcohol Misuse (06/22/2023) AUDIT-C Frequency of Alcohol Consumption: 4 or more times a week Average Number of Drinks: 10 or more Frequency of Binge Drinking: Daily or almost daily Financial Resource Strain: Not on file Food Insecurity: Not on file Transportation Needs: No Transportation Needs (06/22/2023) PRAPARE - Transportation Lack of Transportation (Medical): No Lack of Transportation (Non-Medical): No Physical Activity: Inactive (04/03/2023) Exercise Vital Sign Days of Exercise per Week: 0 days Minutes of Exercise per Session: 0 min Stress: No Stress Concern Present (04/03/2023) [employer] [place] [employer] - Occupational Stress Questionnaire Feeling of Stress : Not at all Social Connections: Not on file Intimate Partner Violence: Not At Risk (06/22/2023) Humiliation, Afraid, Rape, and Kick questionnaire Fear of Current or Ex-Partner: No Emotionally Abused: No Physically Abused: No Sexually Abused: No Depression: None or minimal depression (04/03/2023) PHQ-9 PHQ-9 Score: 3 Housing Stability: Low Risk (06/22/2023) Housing Stability Vital Sign Unable to Pay for Housing in the Last Year: No Number of Places Lived in the Last Year: 1 Unstable Housing in the Last Year: No Utilities: Not on file REVIEW OF SYSTEMS Review of Systems Constitutional: Positive for activity change, appetite change and diaphoresis. Gastrointestinal: Positive for abdominal distention, abdominal pain and nausea. Neurological: Positive for tremors and weakness (recurrent falls). Psychiatric/Behavioral: Positive for sleep disturbance. The patient is nervous/anxious. All other systems reviewed and are negative. EXAM Vitals Vitals: 10/21/23 0438 10/21/23 0710 10/21/23 0800 10/21/23 1200 BP: (!) 158/81 (!) 157/97 (!) 161/103 (!) 140/86 Pulse: 97 107 102 102 Resp: 18 18 16 16 Temp: TempSrc: SpO2: 96% 96% 97% 96% Physical Exam Vitals and nursing note reviewed. Constitutional: Appearance: He is obese. He is ill-appearing. HENT: Head: Normocephalic and atraumatic. Mouth/Throat: Mouth: Mucous membranes are dry. Eyes: General: No scleral icterus. Extraocular Movements: Extraocular movements intact. Conjunctiva/sclera: Conjunctivae normal. Cardiovascular: Rate and Rhythm: Regular rhythm. Tachycardia present. Pulmonary: Effort: Pulmonary effort is normal. Breath sounds: Normal breath sounds. Abdominal: General: There is distension. Tenderness: There is abdominal tenderness. There is no guarding. Musculoskeletal: General: Normal range of motion. Skin: General: Skin is warm and dry. Neurological: General: No focal deficit present. Mental Status: He is alert and oriented to person, place, and time. Motor: Tremor present. Psychiatric: Attention and Perception: Attention and perception normal. Mood and Affect: Mood and affect normal. IMAGING ECG 12 lead Result Date: 10/20/2023 Sinus rhythm RBBB and LAFB No significant changes compared to previous Electronically Signed On 10-20-2023 18:25:24 EST by Khurram Bob XR chest 1 view Result Date: 10/20/2023 Patient Name: WOODY NI : 1960 [id number] Exam Date/Time: 10/20/2023 17:10 Procedure: XR CHEST 1 VIEW Ordering Provider: BOB KEVIN Reason For Exam: ABDOMINAL PAIN CHEST CLINICAL INDICATION: Abdominal pain TECHNIQUE: AP portable chest COMPARISON: 06/25/2023 FINDINGS AND IMPRESSION: SUPPORT DEVICES: None OSSEOUS STRUCTURES: Unremarkable. HEART AND MEDIASTINUM: The cardiomediastinal silhouette appears unchanged from the prior exam. LUNGS AND PLEURA: The lungs are clear. No sizable pleural effusion. Report Dictated on Electronically Signed By: Richie Morrison MD Electronically Signed Date/Time: 10/20/2023 5:24 PM EST LABS Recent Results (from the past 48 hour(s)) ECG 12 lead Collection Time: 10/20/23 5:14 PM Result Value Ref Range Heart Rate 99 bpm QRSD Interval 148 ms QT Interval 392 ms QTC Interval 503 ms P [place] 0 degrees QRS [place] -57 degrees T Wave [place] 6 degrees [place] Interval 127 ms COVID-19, Flu A/B, and RSV Combo Collection Time: 10/20/23 5:18 PM Specimen: Nasopharynx; Swab Result Value Ref Range SARS-CoV-2 Not Detected Not Detected Respiratory Syncytial Virus Not Detected Not Detected Influenza A Not Detected Not Detected Influenza B Not Detected Not Detected CBC auto differential Collection Time: 10/20/23 5:19 PM Result Value Ref Range Auto WBC 5.2 3.6 - 10.7 10*3/uL RBC 3.90 (L) 4.40 - 5.90 10*6/uL Hemoglobin 13.1 13.0 - 18.0 g/dL Hematocrit 38.3 (L) 40.0 - 52.0 % MCV 98.2 (H) 80.0 - 98.0 fL MCH 33.5 26.0 - 34.0 pg MCHC 34.1 32.0 - 36.0 % RDW 13.7 11.5 - 14.5 % Platelets 76 (L) 140 - 440 10*3/uL MPV 6.9 (L) 7.4 - 12.4 fL nRBC 0.2 0.0 - 2.0 /100 WBCs Neutrophils Relative 59.2 40.0 - 80.0 % Lymphocytes Relative 32.5 20.0 - 40.0 % Monocytes Relative 6.8 2.0 - 10.0 % Eosinophils Relative 0.6 (L) 1.0 - 6.0 % Basophils Relative 0.9 0.0 - 2.0 % Neutrophils Absolute 3.1 1.8 - 7.0 10*3/uL Lymphocytes Absolute 1.7 1.0 - 4.3 10*3/uL Monocytes Absolute 0.4 0.0 - 0.8 10*3/uL Eosinophils Absolute 0.0 0.0 - 0.5 10*3/uL Basophils Absolute 0.0 0.0 - 0.2 10*3/uL Lipase Collection Time: 10/20/23 5:19 PM Result Value Ref Range LIPASE 615 (H) 23 - 300 U/L Basic metabolic panel Collection Time: 10/20/23 5:19 PM Result Value Ref Range SODIUM 133 (L) 135 - 145 mmol/L POTASSIUM 4.3 3.5 - 5.1 mmol/L CHLORIDE 94 (L) 98 - 107 mmol/L CARBON DIOXIDE 19 (L) 22 - 30 mmol/L UREA NITROGEN 12 9 - 20 mg/dL CREATININE 0.71 0.66 - 1.25 mg/dL GLUCOSE 92 70 - 100 mg/dL CALCIUM 9.3 8.4 - 10.4 mg/dL ANION GAP 19 (H) 3 - 13 mmol/L eGFR >90.0 >60.0 mL/min/1.73m*2 Hepatic function panel Collection Time: 10/20/23 5:19 PM Result Value Ref Range BILIRUBIN, TOTAL 1.4 (H) 0.2 - 1.3 mg/dL BILIRUBIN, DIRECT 0.0 0.0 - 0.3 mg/dL ALKALINE PHOSPHATASE 105 38 - 126 U/L AST (SGOT) 250 (H) 15 - 46 U/L ALT 85 (H) 0 - 49 U/L ALBUMIN 4.6 3.5 - 5.0 g/dL TOTAL PROTEIN 8.2 6.3 - 8.2 g/dL Troponin, with Serial Reflex Collection Time: 10/20/23 5:19 PM Result Value Ref Range TROPONIN I <0.012 <0.034 ng/mL Ethanol Collection Time: 10/20/23 5:19 PM Result Value Ref Range ETHANOL IN SER/PLAS 0.390 (HH) 0.000 - 0.010 g/dL Drug screen panel, emergency Collection Time: 10/20/23 5:37 PM Result Value Ref Range AMPHETAMINE SCREEN Negative BARBITURATES SCREEN Negative BENZODIAZEPINE SCREEN Negative COCAINE METAB. SCREEN Negative METHADONE SCREEN Negative OPIATES SCREEN Negative OXYCODONE SCREEN Negative PHENCYCLIDINE SCREEN Negative Complete Urinalysis Collection Time: 10/20/23 5:37 PM Result Value Ref Range Color, Urine Light Yellow Lt. Yellow Clarity, Urine Clear Clear pH, Urine 5.0 5.0 - 8.0 pH Leukocytes, Urine Negative Negative Emma/uL Nitrite, Urine Negative Negative Protein, Urine Negative Negative mg/dL Glucose, Urine Normal Normal (<70) mg/dL Bilirubin, Urine Negative Negative mg/dL Ketones, Urine Negative Negative mg/dL Urobilinogen, Urine Normal Normal (0-1) mg/dL Blood, Urine Negative Negative mg/dL SPECIFIC GRAVITY OF URINE (NUMERIC) 1.006 1.005 - 1.030 Troponin I Collection Time: 10/20/23 10:43 PM Result Value Ref Range TROPONIN I <0.012 <0.034 ng/mL Lipase Collection Time: 10/20/23 10:43 PM Result Value Ref Range LIPASE 537 (H) 23 - 300 U/L Comprehensive metabolic panel Collection Time: 10/20/23 10:43 PM Result Value Ref Range SODIUM 133 (L) 135 - 145 mmol/L POTASSIUM 3.6 3.5 - 5.1 mmol/L CHLORIDE 98 98 - 107 mmol/L CARBON DIOXIDE 20 (L) 22 - 30 mmol/L ANION GAP 16 (H) 3 - 13 mmol/L UREA NITROGEN 10 9 - 20 mg/dL CREATININE 0.74 0.66 - 1.25 mg/dL GLUCOSE 70 70 - 100 mg/dL CALCIUM 8.4 8.4 - 10.4 mg/dL AST (SGOT) 207 (H) 15 - 46 U/L ALT 71 (H) 0 - 49 U/L ALKALINE PHOSPHATASE 80 38 - 126 U/L ALBUMIN 3.7 3.5 - 5.0 g/dL BILIRUBIN, TOTAL 1.2 0.2 - 1.3 mg/dL TOTAL PROTEIN 6.8 6.3 - 8.2 g/dL eGFR >90.0 >60.0 mL/min/1.73m*2 CBC auto differential Collection Time: 10/21/23 6:41 AM Result Value Ref Range Auto WBC 4.6 3.6 - 10.7 10*3/uL RBC 3.52 (L) 4.40 - 5.90 10*6/uL Hemoglobin 12.0 (L) 13.0 - 18.0 g/dL Hematocrit 34.9 (L) 40.0 - 52.0 % MCV 99.1 (H) 80.0 - 98.0 fL MCH 33.9 26.0 - 34.0 pg MCHC 34.3 32.0 - 36.0 % RDW 13.8 11.5 - 14.5 % Platelets 51 (L) 140 - 440 10*3/uL MPV 6.6 (L) 7.4 - 12.4 fL nRBC 0.1 0.0 - 2.0 /100 WBCs Man Differential Collection Time: 10/21/23 6:41 AM Result Value Ref Range Adjusted WBC 4.6 3.6 - 10.7 10*3/uL Neutrophils % 65 40 - 80 % Lymphocytes % 25 20 - 40 % Monocytes % 8 2 - 10 % Eosinophils % 1 1 - 6 % Basophils % 1 0 - 2 % Absolute Neutrophil Count 3.0 1.8 - 7.0 10*3/uL Lymphocytes Absolute 1.2 1.0 - 4.3 10*3/uL Monocytes Absolute 0.4 0.0 - 0.8 10*3/uL Eosinophils Absolute 0.0 0.0 - 0.5 10*3/uL Basophils Absolute 0.0 0.0 - 0.2 10*3/uL RBC Morphology Normal WBC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 He has quit using smokeless tobacco. ETOH: reports current alcohol use of about 42.0 standard drinks of alcohol per week. DRUGS: reports current drug use. Drug: Marijuana. Medications: Prior to Admission medications Medication Sig Start Date End Date Taking? Authorizing Provider albuterol 108 (90 Base) MCG/ACT inhaler Inhale 1 puff every 4 hours as needed. Historical Provider, alendronate (Fosamax) 70 MG tablet Take 70 mg by mouth once a week. 05/19/17 Historical Provider, amLODIPine (Norvasc) 2.5 MG tablet Take 2.5 mg by mouth in the morning. 05/27/17 Historical Provider, Bioflavonoid Products (Alana-C) tablet Every 24 hours. Historical Provider, calcium carbonate (Tums) 500 MG chewable tablet Chew 1 tablet (500 mg) daily. Do not start before February 15, 2023. 02/15/23 02/15/24 Kacie Benz DO cyanocobalamin (Vitamin B-12) 1000 MCG/ML injection 1 mL intramuscularly once a month Historical Provider, dicyclomine (Bentyl) 20 MG tablet Take 1 tablet (20 mg) by mouth in the morning and 1 tablet (20 mg) at noon and 1 tablet (20 mg) in the evening. Take before meals. 11/07/22 11/07/23 Beryl Holder PA-C famotidine (Pepcid) 20 MG tablet Take 1 tablet (20 mg) by mouth 2 times daily. 04/15/23 04/14/24 Ced Koenig MD fluticasone (Flonase) 50 MCG/ACT nasal spray Administer 1 spray into each nostril daily as needed. 04/27/17 Historical Provider, folic acid (Folvite) 1 MG tablet Take 1 tablet (1 mg) by mouth daily. Do not start before April 16, 2023. 04/16/23 04/15/24 Ced Koenig MD ipratropium-albuterol (Duo-Neb) 0.5-2.5 mg/3 mL nebulizer solution every 6 hours. Historical Provider, ketoconazole (NIZOral) 2 % shampoo EVERY THREE DAYS 11/18/19 Historical Provider, levothyroxine (Synthroid, Levoxyl) 50 MCG tablet TAKE 1 TABLET BY MOUTH DAILY 06/06/22 06/06/23 Nicolas Qiu losartan (Cozaar) 100 MG tablet Take 1 tablet (100 mg) by mouth daily. Do not start before February 15, 2023. 02/15/23 02/15/24 Kacie Benz DO niacin 100 MG tablet Every 24 hours. Historical Provider, nitroglycerin (Nitrostat) 0.4 MG SL tablet 1 tab(s) sublingually every 5 minutes x 3 doses prn Historical Provider, PHENobarbital (Luminal) 64.8 MG tablet Take 1 tablet (64.8 mg) by mouth every 4 hours. 06/26/23 07/26/23 Kacie Benz DO potassium chloride ER (Micro-K) 10 MEQ ER capsule Take 10 mEq by mouth in the morning. 03/30/17 Historical Provider, sodium chloride 1 g tablet Take 1 tablet (1 g) by mouth in the morning and 1 tablet (1 g) in the evening. Take with meals. 02/14/23 02/14/24 Kacie Benz DO tamsulosin (Flomax) 0.4 MG 24 hr capsule Take 0.4 mg by mouth daily. 01/27/22 Historical Provider, thiamine (Vitamin B-1) 100 MG tablet Take 1 tablet (100 mg) by mouth daily. Do not start before April 16, 2023. 04/16/23 Ced Koenig MD @[facility]@ ALLERGIES: Allergies Allergen Reactions Allopurinol Other Breaks out in blisters Codeine Nausea Only Penicillin G Swelling REVIEW OF SYSTEMS: No fever, chills, or sweats. Normal appetite and weight. No GRANADOS, visual disturbance, eye pain, jaundice, sore throat or mouth ulcers. No skin rash or itching. No CP, SOB, TABOR, cough or wheeze. No urinary frequency, urgency, hematuria, or dysuria. No myalgia, arthralgia, or joint swelling. No weakness, numbness, or confusion. GI per HPI. No polyuria, polydipsia, heat or cold intolerance. PHYSICAL EXAM: VS: BP (!) 140/86 Pulse 102 Temp 37.3 C (99.2 F) (Oral) Resp 16 SpO2 96% There is no height or weight on file to calculate BMI. GENERAL: Pleasant and NAD. HEENT: NCAT, PERRLA, EOMI, Scleral anicteric. Oropharhynx clear with no erythema or exudate. Neck supple, no cervical LAD or thyromegaly. CV: RRR, NL S1/S2, no murmurs. Distal pulses palpable and equal b/l. LUNGS: CTA b/l. Normal percussion and palpation. No W/R/R. Abdomen: + BS, soft, epigastric TTP. non-distended. No hepatosplenomegaly. No mass felt. No rebound or guarding. No hernia. Extremities: No C/C/E. No muscle atrophy. Skin: No skin lesion or breakdown. Lymph: No cervical or supraclavicular LAD. Musculoskeletal: Strength 5/5 in all exts. No joint tenderness or effusions in LEs. Neurologic: A&O x 3, CN II-XII grossly intact. No asterixis. Non-focal. Psych: Normal affect and speech. LABS AND IMAGING: Recent blood work and relevant radiologic and endoscopic studies were reviewed and discussed with the patient. CBC: Recent Labs 10/20/23171810/21/23 0641 WBC 5.2 4.6 HGB 13.1 12.0* HCT 38.3* 34.9* PLT 76* 51* HEPATIC: Recent Labs 10/20/23 17110/20/23 2243 AST 250* 207* ALT 85* 71* BILITOT 1.4* 1.2 ALKPHOS 105 80 LIPASE/AMYLASE: Recent Labs 10/20/23 2243 10/21/23 1122 LIPASE 537* 483* LACTATE: No lab exists for component: "LACTA" BNP: No results for input(s): "BNP" in the last 72 hours. INR: No results for input(s): "INR" in the last 72 hours. ECG 12 lead Sinus rhythm RBBB and LAFB No significant changes compared to previous Electronically Signed On 10-20-2023 18:25:24 EST by Khurram Bob XR chest 1 view Narrative: Patient Name: WOODY NI : 1960 Exam Date/Time: 10/20/2023 17:10 Procedure: XR CHEST 1 VIEW Ordering Provider: BOB KEVIN Reason For Exam: ABDOMINAL PAIN CHEST CLINICAL INDICATION: Abdominal pain TECHNIQUE: AP portable chest COMPARISON: 06/25/2023 Impression: FINDINGS AND IMPRESSION: SUPPORT DEVICES: None OSSEOUS STRUCTURES: Unremarkable. HEART AND MEDIASTINUM: The cardiomediastinal silhouette appears unchanged from the prior exam. LUNGS AND PLEURA: The lungs are clear. No sizable pleural effusion. Report Dictated on Electronically Signed By: Richie Morrison MD Electronically Signed Date/Time: 10/20/2023 5:24 PM EST IMPRESSION / RECOMMENDATIONS: Hyperlipidemia Diabetes Obstructive sleep apnea Marijuana use Alcohol abuse -CIWA -Thiamine and folic acid - addiction medicine following -Encourage complete cessation of all alcohol Thrombocytopenia Macrocytic anemia Abdominal pain/nausea/vomiting/diarrhea: Lipase is elevated suggesting pancreatitis. This would likely be related to alcohol use EGD 06/05/2022: Normal duodenum. Mild gastritis. Normal esophagus with questionable decreased motility. -IV hydration -Supportive therapies per primary service -Monitor LFTs/lipase -Clear liquid diet until patient has some improvement in abdominal pain. Currently rating it a 10 out of 10. -Monitor electrolytes and replace as needed -Antiemetics and analgesics per primary service (Comment: Please note this report has been produced using speech recognition software and may contain errors related to that system including errors in grammar, punctuation, and spelling, as well as words and phrases that may be inappropriate. If there are any questions or concerns please feel free to contact the dictating provider for clarification.) [facility]23 Consult note Associated Order (s): IP CONSULT TO ADDICTION MEDICINE Images from the original note were not included. ADDICTION MEDICINE CONSULTATION H&P Patient: Woody Ni Admit Date: 10/20/2023 Primary Care Physician: Jani Quezada Reason for Consultation: "ETOH abuse." HISTORY OF PRESENT ILLNESS Chief Complaint Patient presents with Vomiting Pt comes to the ed today due to vomiting pts family states he is a heavy drinker pt is positive ETOH aprox 18 beers pt states he would like to speak to someone about resources to quit drinking pt is nauseous in triage. Woody Ni is a 63 y.o. obese, white male with a PMH of DM, Hep C, cirrhosis, hypothyroidism, gout, chronic back pain, SHAYLA, depression, previous history of prescription opioid use that was admitted for alcohol withdrawal management. He also has concerns regarding placement due to recurrent falls, generalized weakness, and an ability to take care of himself. This is occurring in the context of alcoholism. He was admitted back in June 2023 for the same reason. Case management was attempting to find him placement at a SNF at that time but he ended up leaving AMA before that could be finalized. It seems he resumed drinking immediately after leaving then and has continued to drink since. Continues to have functional limitations with repeated falls and an inability to care for himself. PT has recommended he go directly to a SNF again after this hospitalization. From a previous consultation note in June 2023: He was discharged directly to [facility] for assisted due to generalized weakness, ambulation issues, etc. He was having frequent falls at home prior to that admission. Unfortunately, it seems he left AMA from that facility within a day or so and resumed drinking immediately. It seems his family brought him back to the ED. Of note, patient had liver biopsy while admitted at [facility] in 12/2022 and findings consistent with liver cirrhosis. Patient was receiving opioids for chronic pain from a pain management facility but around February 2023 he was dismissed from that program due to alcohol use while receiving prescription opioids. He no longer receives opioids for pain, and it seems his alcohol use has escalated to compensate for a lack of narcotics for pain control. He has now been admitted to a hospital at least 4 times since then for the same issues. He has never pursued professional chemical dependency treatment after any of those admissions and usually leaves AMA. Woody Ni states that he is having withdrawal symptoms now. On admission, a urine drug screen was negative, and a serum alcohol level was 390 on 10/20/23 @ 1719. Liver enzymes were elevated, and Na was 133 on admission. Lipase was elevated at 615 on admission. Abdominal pain is ongoing but improved. SUBSTANCE USE HISTORY Brief Substance Use Narrative Patient reports that he for started drinking alcohol when he was 16 years old. 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 Patient denies any history withdrawal seizures, or DTs. Patient does report history of falls while intoxicated including hitting his head during these falls. He has also been diagnosed with numerous biopsychosocial problems related to alcoholism including liver cirrhosis, recurrent falls, thrombocytopenia, etc... Patient is currently drinking to the point of intoxication, blackouts, and vomiting. Patient denies any history of MAT for substance use disorder, engagement in IOP or AA. He did receive chronic narcotic therapy for back issues for years, but did continue drinking while receiving those narcotics and was dismissed from that clinic around 02/2023. Otherwise, he denies abusing opioids or any other drugs. Current Substance Use Alcohol: about a case, 24 cans of 12 oz beer, daily. Amphetamines: denies. Benzos: denies. Cocaine: denies. Hallucinogens: denies. Marijuana: denies, but has admitted in the past. Nicotine: daily. Opioids: formerly prescribed narcotics, not since February 2023. Treatment History Inpatient Rehab: denies. Chem Dep IOP: denies. Detoxifications: several at [facility] but usually leaves [facility] Meetings: denies. Medication Assisted Treatment: denies. Consequences [] IVDA. [x] Blackouts related to substance use. [] History of withdrawal seizures. [] History of delirium tremens. [] History of overdoses. [] Legal consequences of substance use. Substance Use Disorder Criteria 2-3 = mild; 4-5 = moderate; 6 or >6 = severe substance use disorder [x] Taking substance in larger amounts and/or for longer than intended. [x] Wanting to cut down or quit but not being able to. [x] Spending a lot of time obtaining the substance. [x] Craving or a strong desire to use substance. [x] Repeatedly doesn't carry out major obligations due to substance use. [x] Using despite recurring social or interpersonal problems. [x] Reducing social, occupational, or recreational activities. [x] Recurrent use in physically hazardous situations. [x] Consistent use despite recurrent physical or psychological difficulties. [x] Tolerance (increased amounts to achieve intoxication or diminished effect). [x] Withdrawal syndrome or the substance is used to avoid withdrawal. REMAINING HISTORY Psychiatric History Current Psychiatrist: denies Current Medications: denies Diagnoses: denies but likely meets criteria for depression Previous Medication Trials: denies Psychiatric Hospitalizations: denies Previous Suicide Attempts: denies Adverse Childhood Events: denies Trauma History: likely History of Head Injuries: yes Past Medical History 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 Nausea and vomiting 12/22/22-12/26/22 admitted at [facility] Pain management Sleep apnea noncompliant with device Past Surgical History Past Surgical History: Procedure Laterality Date BACK SURGERY x 2 CHOLECYSTECTOMY LAMINECTOMY LAP,CHOLECYSTECTOMY (HISTORICAL) N/A 01/05/2023 WISDOM TOOTH EXTRACTION Family History Family History Problem Relation Name Age of Onset Depression Mother Depression Maternal Grandmother Social Determinants of Health Tobacco Use: High Risk (07/01/2023) Patient History Smoking Tobacco Use: Every Day Smokeless Tobacco Use: Former Passive Exposure: Not on file Alcohol Use: Alcohol Misuse (06/22/2023) AUDIT-C Frequency of Alcohol Consumption: 4 or more times a week Average Number of Drinks: 10 or more Frequency of Binge Drinking: Daily or almost daily Financial Resource Strain: Not on file Food Insecurity: Not on file Transportation Needs: No Transportation Needs (06/22/2023) PRAPARE - Transportation Lack of Transportation (Medical): No Lack of Transportation (Non-Medical): No Physical Activity: Inactive (04/03/2023) Exercise Vital Sign Days of Exercise per Week: 0 days Minutes of Exercise per Session: 0 min Stress: No Stress Concern Present (04/03/2023) [employer] [place] [employer] - Occupational Stress Questionnaire Feeling of Stress : Not at all Social Connections: Not on file Intimate Partner Violence: Not At Risk (06/22/2023) Humiliation, Afraid, Rape, and Kick questionnaire Fear of Current or Ex-Partner: No Emotionally Abused: No Physically Abused: No Sexually Abused: No Depression: None or minimal depression (04/03/2023) PHQ-9 PHQ-9 Score: 3 Housing Stability: Low Risk (06/22/2023) Housing Stability Vital Sign Unable to Pay for Housing in the Last Year: No Number of Places Lived in the Last Year: 1 Unstable Housing in the Last Year: No Utilities: Not on file REVIEW OF SYSTEMS Review of Systems Constitutional: Positive for activity change, appetite change and diaphoresis. Gastrointestinal: Positive for abdominal distention, abdominal pain and nausea. Neurological: Positive for tremors and weakness (recurrent falls). Psychiatric/Behavioral: Positive for sleep disturbance. The patient is nervous/anxious. All other systems reviewed and are negative. EXAM Vitals Vitals: 10/21/23 0438 10/21/23 0710 10/21/23 0800 10/21/23 1200 BP: (!) 158/81 (!) 157/97 (!) 161/103 (!) 140/86 Pulse: 97 107 102 102 Resp: 18 18 16 16 Temp: TempSrc: SpO2: 96% 96% 97% 96% Physical Exam Vitals and nursing note reviewed. Constitutional: Appearance: He is obese. He is ill-appearing. HENT: Head: Normocephalic and atraumatic. Mouth/Throat: Mouth: Mucous membranes are dry. Eyes: General: No scleral icterus. Extraocular Movements: Extraocular movements intact. Conjunctiva/sclera: Conjunctivae normal. Cardiovascular: Rate and Rhythm: Regular rhythm. Tachycardia present. Pulmonary: Effort: Pulmonary effort is normal. Breath sounds: Normal breath sounds. Abdominal: General: There is distension. Tenderness: There is abdominal tenderness. There is no guarding. Musculoskeletal: General: Normal range of motion. Skin: General: Skin is warm and dry. Neurological: General: No focal deficit present. Mental Status: He is alert and oriented to person, place, and time. Motor: Tremor present. Psychiatric: Attention and Perception: Attention and perception normal. Mood and Affect: Mood and affect normal. IMAGING ECG 12 lead Result Date: 10/20/2023 Sinus rhythm RBBB and LAFB No significant changes compared to previous Electronically Signed On 10-20-2023 18:25:24 EST by Khurram Bob XR chest 1 view Result Date: 10/20/2023 Patient Name: WOODY NI : 1960 Exam Date/Time: 10/20/2023 17:10 Procedure: XR CHEST 1 VIEW Ordering Provider: BOB KEVIN Reason For Exam: ABDOMINAL PAIN CHEST CLINICAL INDICATION: Abdominal pain TECHNIQUE: AP portable chest COMPARISON: 06/25/2023 FINDINGS AND IMPRESSION: SUPPORT DEVICES: None OSSEOUS STRUCTURES: Unremarkable. HEART AND MEDIASTINUM: The cardiomediastinal silhouette appears unchanged from the prior exam. LUNGS AND PLEURA: The lungs are clear. No sizable pleural effusion. Report Dictated on Electronically Signed By: Richie Morrison MD Electronically Signed Date/Time: 10/20/2023 5:24 PM EST LABS Recent Results (from the past 48 hour(s)) ECG 12 lead Collection Time: 10/20/23 5:14 PM Result Value Ref Range Heart Rate 99 bpm QRSD Interval 148 ms QT Interval 392 ms QTC Interval 503 ms P [place] 0 degrees QRS [place] -57 degrees T Wave [place] 6 degrees [place] Interval 127 ms COVID-19, Flu A/B, and RSV Combo Collection Time: 10/20/23 5:18 PM Specimen: Nasopharynx; Swab Result Value Ref Range SARS-CoV-2 Not Detected Not Detected Respiratory Syncytial Virus Not Detected Not Detected Influenza A Not Detected Not Detected Influenza B Not Detected Not Detected CBC auto differential Collection Time: 10/20/23 5:19 PM Result Value Ref Range Auto WBC 5.2 3.6 - 10.7 10*3/uL RBC 3.90 (L) 4.40 - 5.90 10*6/uL Hemoglobin 13.1 13.0 - 18.0 g/dL Hematocrit 38.3 (L) 40.0 - 52.0 % MCV 98.2 (H) 80.0 - 98.0 fL MCH 33.5 26.0 - 34.0 pg MCHC 34.1 32.0 - 36.0 % RDW 13.7 11.5 - 14.5 % Platelets 76 (L) 140 - 440 10*3/uL MPV 6.9 (L) 7.4 - 12.4 fL nRBC 0.2 0.0 - 2.0 /100 WBCs Neutrophils Relative 59.2 40.0 - 80.0 % Lymphocytes Relative 32.5 20.0 - 40.0 % Monocytes Relative 6.8 2.0 - 10.0 % Eosinophils Relative 0.6 (L) 1.0 - 6.0 % Basophils Relative 0.9 0.0 - 2.0 % Neutrophils Absolute 3.1 1.8 - 7.0 10*3/uL Lymphocytes Absolute 1.7 1.0 - 4.3 10*3/uL Monocytes Absolute 0.4 0.0 - 0.8 10*3/uL Eosinophils Absolute 0.0 0.0 - 0.5 10*3/uL Basophils Absolute 0.0 0.0 - 0.2 10*3/uL Lipase Collection Time: 10/20/23 5:19 PM Result Value Ref Range LIPASE 615 (H) 23 - 300 U/L Basic metabolic panel Collection Time: 10/20/23 5:19 PM Result Value Ref Range SODIUM 133 (L) 135 - 145 mmol/L POTASSIUM 4.3 3.5 - 5.1 mmol/L CHLORIDE 94 (L) 98 - 107 mmol/L CARBON DIOXIDE 19 (L) 22 - 30 mmol/L UREA NITROGEN 12 9 - 20 mg/dL CREATININE 0.71 0.66 - 1.25 mg/dL GLUCOSE 92 70 - 100 mg/dL CALCIUM 9.3 8.4 - 10.4 mg/dL ANION GAP 19 (H) 3 - 13 mmol/L eGFR >90.0 >60.0 mL/min/1.73m*2 Hepatic function panel Collection Time: 10/20/23 5:19 PM Result Value Ref Range BILIRUBIN, TOTAL 1.4 (H) 0.2 - 1.3 mg/dL BILIRUBIN, DIRECT 0.0 0.0 - 0.3 mg/dL ALKALINE PHOSPHATASE 105 38 - 126 U/L AST (SGOT) 250 (H) 15 - 46 U/L ALT 85 (H) 0 - 49 U/L ALBUMIN 4.6 3.5 - 5.0 g/dL TOTAL PROTEIN 8.2 6.3 - 8.2 g/dL Troponin, with Serial Reflex Collection Time: 10/20/23 5:19 PM Result Value Ref Range TROPONIN I <0.012 <0.034 ng/mL Ethanol Collection Time: 10/20/23 5:19 PM Result Value Ref Range ETHANOL IN SER/PLAS 0.390 (HH) 0.000 - 0.010 g/dL Drug screen panel, emergency Collection Time: 10/20/23 5:37 PM Result Value Ref Range AMPHETAMINE SCREEN Negative BARBITURATES SCREEN Negative BENZODIAZEPINE SCREEN Negative COCAINE METAB. SCREEN Negative METHADONE SCREEN Negative OPIATES SCREEN Negative OXYCODONE SCREEN Negative PHENCYCLIDINE SCREEN Negative Complete Urinalysis Collection Time: 10/20/23 5:37 PM Result Value Ref Range Color, Urine Light Yellow Lt. Yellow Clarity, Urine Clear Clear pH, Urine 5.0 5.0 - 8.0 pH Leukocytes, Urine Negative Negative Emma/uL Nitrite, Urine Negative Negative Protein, Urine Negative Negative mg/dL Glucose, Urine Normal Normal (<70) mg/dL Bilirubin, Urine Negative Negative mg/dL Ketones, Urine Negative Negative mg/dL Urobilinogen, Urine Normal Normal (0-1) mg/dL Blood, Urine Negative Negative mg/dL SPECIFIC GRAVITY OF URINE (NUMERIC) 1.006 1.005 - 1.030 Troponin I Collection Time: 10/20/23 10:43 PM Result Value Ref Range TROPONIN I <0.012 <0.034 ng/mL Lipase Collection Time: 10/20/23 10:43 PM Result Value Ref Range LIPASE 537 (H) 23 - 300 U/L Comprehensive metabolic panel Collection Time: 10/20/23 10:43 PM Result Value Ref Range SODIUM 133 (L) 135 - 145 mmol/L POTASSIUM 3.6 3.5 - 5.1 mmol/L CHLORIDE 98 98 - 107 mmol/L CARBON DIOXIDE 20 (L) 22 - 30 mmol/L ANION GAP 16 (H) 3 - 13 mmol/L UREA NITROGEN 10 9 - 20 mg/dL CREATININE 0.74 0.66 - 1.25 mg/dL GLUCOSE 70 70 - 100 mg/dL CALCIUM 8.4 8.4 - 10.4 mg/dL AST (SGOT) 207 (H) 15 - 46 U/L ALT 71 (H) 0 - 49 U/L ALKALINE PHOSPHATASE 80 38 - 126 U/L ALBUMIN 3.7 3.5 - 5.0 g/dL BILIRUBIN, TOTAL 1.2 0.2 - 1.3 mg/dL TOTAL PROTEIN 6.8 6.3 - 8.2 g/dL eGFR >90.0 >60.0 mL/min/1.73m*2 CBC auto differential Collection Time: 10/21/23 6:41 AM Result Value Ref Range Auto WBC 4.6 3.6 - 10.7 10*3/uL RBC 3.52 (L) 4.40 - 5.90 10*6/uL Hemoglobin 12.0 (L) 13.0 - 18.0 g/dL Hematocrit 34.9 (L) 40.0 - 52.0 % MCV 99.1 (H) 80.0 - 98.0 fL MCH 33.9 26.0 - 34.0 pg MCHC 34.3 32.0 - 36.0 % RDW 13.8 11.5 - 14.5 % Platelets 51 (L) 140 - 440 10*3/uL MPV 6.6 (L) 7.4 - 12.4 fL nRBC 0.1 0.0 - 2.0 /100 WBCs Man Differential Collection Time: 10/21/23 6:41 AM Result Value Ref Range Adjusted WBC 4.6 3.6 - 10.7 10*3/uL Neutrophils % 65 40 - 80 % Lymphocytes % 25 20 - 40 % Monocytes % 8 2 - 10 % Eosinophils % 1 1 - 6 % Basophils % 1 0 - 2 % Absolute Neutrophil Count 3.0 1.8 - 7.0 10*3/uL Lymphocytes Absolute 1.2 1.0 - 4.3 10*3/uL Monocytes Absolute 0.4 0.0 - 0.8 10*3/uL Eosinophils Absolute 0.0 0.0 - 0.5 10*3/uL Basophils Absolute 0.0 0.0 - 0.2 10*3/uL RBC Morphology Normal WBC Morphology Normal PLT Morphology Normal Total Counted 100 Neutrophils Manual 65 Lymphocytes Manual 25 Monocytes Manual 8 Eosinophils Manual 1 0 - 1 Basophils Manual 1 Differential Method Automated differential reported after manual slide review Lipase Collection Time: 10/21/23 11:22 AM Result Value Ref Range LIPASE 483 (H) 23 - 300 U/L MEDICATIONS Home Meds Current Outpatient Medications Medication Instructions albuterol 108 (90 Base) MCG/ACT inhaler 1 puff, Inhalation, Every 4 hours PRN alendronate (FOSAMAX) 70 mg, Oral, Weekly amLODIPine (NORVASC) 2.5 mg, Oral, Daily Bioflavonoid Products (Alana-C) tablet Every 24 hours calcium carbonate (TUMS) 500 mg, Oral, Daily cyanocobalamin (Vitamin B-12) 1000 MCG/ML injection 1 mL intramuscularly once a month dicyclomine (BENTYL) 20 mg, Oral, 3 times daily before meals famotidine (PEPCID) 20 mg, Oral, 2 times daily fluticasone (Flonase) 50 MCG/ACT nasal spray 1 spray, Each Nostril, Daily PRN folic acid (FOLVITE) 1 mg, Oral, Daily ipratropium-albuterol (Duo-Neb) 0.5-2.5 mg/3 mL nebulizer solution Every 6 hours ketoconazole (NIZOral) 2 % shampoo EVERY THREE DAYS levothyroxine (Synthroid, Levoxyl) 50 MCG tablet TAKE 1 TABLET BY MOUTH DAILY losartan (COZAAR) 100 mg, Oral, Daily niacin 100 MG tablet Every 24 hours nitroglycerin (Nitrostat) 0.4 MG SL tablet 1 tab(s) sublingually every 5 minutes x 3 doses prn PHENobarbital (LUMINAL) 64.8 mg, Oral, Every 4 hours potassium chloride ER (Micro-K) 10 MEQ ER capsule 10 mEq, Oral, Daily sodium chloride 1 g, Oral, 2 times daily with meals tamsulosin (FLOMAX) 0.4 mg, Oral, Daily thiamine (VITAMIN B-1) 100 mg, Oral, Daily Scheduled Inpatient Meds amLODIPine, 2.5 mg, Oral, Daily dicyclomine, 20 mg, Oral, TID AC famotidine, 20 mg, Oral, BID folic acid, 1 mg, Oral, Daily levothyroxine, 50 mcg, Oral, qAM AC losartan, 100 mg, Oral, Daily PHENobarbital, 64.8 mg, Oral, Q4H potassium chloride CR, 10 mEq, Oral, Daily sodium chloride 0.9%, 10 mL, IntraVENous, 2 times per day sodium chloride, 1 g, Oral, BID WC tamsulosin, 0.4 mg, Oral, Daily thiamine, 100 mg, Oral, Daily PRN Inpatient Meds PRN medications: acetaminophen OR acetaminophen, albuterol, hydrALAZINE, LORazepam OR LORazepam OR LORazepam OR LORazepam OR LORazepam OR LORazepam OR LORazepam OR LORazepam, morphine sulfate, naloxone, ondansetron ODT OR ondansetron, polyethylene glycol (PEG) 3350, sodium chloride, sodium chloride 0.9% Continuous Inpatient Infusions sodium chloride, 125 mL/hr, Last Rate: 125 mL/hr (10/21/23 0642) ASSESSMENT & PLAN Severe alcohol use disorder History of prescription opioid use (none recently) Cigarette smoker Counseled patient on biopsychosocial consequences of substance use. Encouraged professional chemical dependency treatment. Encouraged 12 step meeting attendance. SW to finalize an addiction treatment plan before discharge: Unclear at this time He will likely need to go to a SNF before he is accepted at a residential alcohol treatment facility.. Alcohol withdrawal Nicotine withdrawal Last use of alcohol was on 10/20/23. Phenobarbital taper to manage alcohol withdrawal symptoms. Continue 64 mg q 4 hours for today. Symptom-triggered Ativan PRN per CIWA protocol also ordered for in between scheduled phenobarbital. Thiamine/folic acid. Nicotine patch. CIWA scores per unit protocol. PRN medications for withdrawal symptom management added. Recurrent falls Inability to care for himself/failure to thrive PT/OT, will likely need placement again Hyponatremia Alcoholic ketoacidosis Alcoholic pancreatitis - mild Electrolyte abnormalities Severe malnutrition Alcoholic cirrhosis Elevated liver enzymes HTN Mgmt per GI and IM Chronic back pain Formerly on chronic narcotics Last rx in February per [facility], he was dismissed from pain mgmt due to alcoholism Will defer to primary team about need for opioids now but recommend avoiding if possible Disposition: Per primary team. Will follow. I reviewed the patient's medical record, and reviewed test results. I educated and then counseled the patient on any substance use disorder or chemical dependency related issues. This included a face to face evaluation and physical examination, and coordinating care on a substance use disorder treatment plan as well as documenting clinical information on the day of visit. [facility] 10-21-2023 History and physical note Department of Family Medicine Attending History and Physical CHIEF COMPLAINT: n/v abd pain Reason for Admission: acute pancreatitis History Obtained From: patient History of Present Illness Woody Ni is a 63 y.o. male who presents to the emergency department with chief complaint of nausea and vomiting associated with upper abdominal pain. Patient has had nausea and vomiting for the past few days. The only thing he is drinking his alcohol. He has history of alcohol abuse. He has history of cirrhosis. He states he would like to quit drinking. Complains of persistent nausea and vomiting. Complains of upper abdominal discomfort. Denies chest pain or shortness of breath. States he received a phone call last week on outpatient laboratory studies done by his doctor that were abnormal but he does not know what the abnormal labs were. In the ER he was diagnosed with acute pancreatitis , his lipase was elevated he is being admitted for management and treatment 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 Nausea and vomiting 12/22/22-12/26/22 admitted at [facility] Pain management Sleep apnea noncompliant with device Past Surgical History: Past Surgical History: Procedure Laterality Date BACK SURGERY x 2 CHOLECYSTECTOMY LAMINECTOMY LAP,CHOLECYSTECTOMY (HISTORICAL) N/A 01/05/2023 WISDOM TOOTH EXTRACTION Medications Prior to Admission: (Not in a hospital admission) Allergies: Allopurinol, Codeine, and Penicillin g Social History: Social History Socioeconomic History Marital status: Tobacco Use Smoking status: Every Day Types: Cigars Smokeless tobacco: Former Vaping Use Vaping Use: Every day Substances: CBD, canabis Devices: Disposable Substance and Sexual Activity Alcohol use: Yes Alcohol/week: 42.0 standard drinks of alcohol Types: 42 Cans of beer per week Comment: TALL BOY ARE DOUBLE BEERS 42 per week Drug use: Yes Types: Marijuana Comment: daily Social Determinants of Health Transportation Needs: No Transportation Needs (06/22/2023) PRAPARE - Transportation Lack of Transportation (Medical): No Lack of Transportation (Non-Medical): No Physical Activity: Inactive (04/03/2023) Exercise Vital Sign Days of Exercise per Week: 0 days Minutes of Exercise per Session: 0 min Stress: No Stress Concern Present (04/03/2023) [employer] - Occupational Stress Questionnaire Feeling of Stress : Not at all Intimate Partner Violence: Not At Risk (06/22/2023) Humiliation, Afraid, Rape, and Kick questionnaire Fear of Current or Ex-Partner: No Emotionally Abused: No Physically Abused: No Sexually Abused: No Housing Stability: Low Risk (06/22/2023) Housing Stability Vital Sign Unable to Pay for Housing in the Last Year: No Number of Places Lived in the Last Year: 1 Unstable Housing in the Last Year: No Family History: Family History Problem Relation Name Age of Onset Depression Mother Depression Maternal Grandmother REVIEW OF SYSTEMS: Review of Systems 10 point ros negative except for HPI Objective Vitals: BP (!) 161/103 Pulse 102 Temp 37.3 C (99.2 F) (Oral) Resp 18 SpO2 96% Physical Exam Pt is alert and oriented x 3 Heent wnl Heart regular Lungs ctab Abd epigastric tenderness Ext no edema Assessment/Plan Patient Active Problem List Diagnosis Osteoarthritis of spine with radiculopathy, lumbar region Essential hypertension Hyponatremia Diabetes (HCC) Hypovolemia Cirrhosis (HCC) Chronic alcoholic hepatitis Asthma Severe malnutrition (CMS/HCC) (HCC) Thyroid disease SHAYLA (obstructive sleep apnea) Lumbar stenosis Postural dizziness with presyncope HLD (hyperlipidemia) Hepatitis Intractable nausea and vomiting Chronic pain syndrome Complication of surgical procedure Intercostal pain Low back pain Mild recurrent major depression (HCC) Myalgia Right hip pain Shoulder joint pain Acute kidney injury (HCC) DENNYS (acute kidney injury) (HCC) Gallbladder sludge RUQ pain Acute on chronic cholecystitis 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) Severe alcohol use disorder (HCC) Alcohol withdrawal syndrome without complication (HCC) Alcohol abuse Recurrent falls Alcohol induced acute pancreatitis without necrosis or infection Acute pancreatitis Etoh abuse Cirrhosis HPL HTN Plan Admit to med floor Consult GI Consult addiction med Ivf Clears Pain control KACIE BENZ DO 10/21/23 9:07 AM [facility] 10-21-2023 History and physical note Department of Family Medicine Attending History and Physical CHIEF COMPLAINT: n/v abd pain Reason for Admission: acute pancreatitis History Obtained From: patient History of Present Illness Woody Ni is a 63 y.o. male who presents to the emergency department with chief complaint of nausea and vomiting associated with upper abdominal pain. Patient has had nausea and vomiting for the past few days. The only thing he is drinking his alcohol. He has history of alcohol abuse. He has history of cirrhosis. He states he would like to quit drinking. Complains of persistent nausea and vomiting. Complains of upper abdominal discomfort. Denies chest pain or shortness of breath. States he received a phone call last week on outpatient laboratory studies done by his doctor that were abnormal but he does not know what the abnormal labs were. 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 Nausea and vomiting 12/22/22-12/26/22 admitted at [facility] Pain management Sleep apnea noncompliant with device Past Surgical History: Past Surgical History: Procedure Laterality Date BACK SURGERY x 2 CHOLECYSTECTOMY LAMINECTOMY LAP,CHOLECYSTECTOMY (HISTORICAL) N/A 01/05/2023 WISDOM TOOTH EXTRACTION Medications Prior to Admission: (Not in a hospital admission) Allergies: Allopurinol, Codeine, and Penicillin g Social History: Social History Socioeconomic History Marital status: Tobacco Use Smoking status: Every Day Types: Cigars Smokeless tobacco: Former Vaping Use Vaping Use: Every day Substances: CBD, canabis Devices: Disposable Substance and Sexual Activity Alcohol use: Yes Alcohol/week: 42.0 standard drinks of alcohol Types: 42 Cans of beer per week Comment: TALL BOY ARE DOUBLE BEERS 42 per week Drug use: Yes Types: Marijuana Comment: daily Social Determinants of Health Transportation Needs: No Transportation Needs (06/22/2023) PRAPARE - Transportation Lack of Transportation (Medical): No Lack of Transportation (Non-Medical): No Physical Activity: Inactive (04/03/2023) Exercise Vital Sign Days of Exercise per Week: 0 days Minutes of Exercise per Session: 0 min Stress: No Stress Concern Present (04/03/2023) [employer] [place] [employer] - Occupational Stress Questionnaire Feeling of Stress : Not at all Intimate Partner Violence: Not At Risk (06/22/2023) Humiliation, Afraid, Rape, and Kick questionnaire Fear of Current or Ex-Partner: No Emotionally Abused: No Physically Abused: No Sexually Abused: No Housing Stability: Low Risk (06/22/2023) Housing Stability Vital Sign Unable to Pay for Housing in the Last Year: No Number of Places Lived in the Last Year: 1 Unstable Housing in the Last Year: No Family History: Family History Problem Relation Name Age of Onset Depression Mother Depression Maternal Grandmother REVIEW OF SYSTEMS: Review of Systems 10 point ros negative except for HPI Objective Vitals: BP (!) 161/103 Pulse 102 Temp 37.3 C (99.2 F) (Oral) Resp 18 SpO2 96% Physical Exam Pt is alert and oriented x 3 Heent wnl Heart regular Lungs ctab Abd epigastric tenderness Ext no edema Assessment/Plan Patient Active Problem List Diagnosis Osteoarthritis of spine with radiculopathy, lumbar region Essential hypertension Hyponatremia Diabetes (HCC) Hypovolemia Cirrhosis (HCC) Chronic alcoholic hepatitis Asthma Severe malnutrition (CMS/HCC) (HCC) Thyroid disease SHAYLA (obstructive sleep apnea) Lumbar stenosis Postural dizziness with presyncope HLD (hyperlipidemia) Hepatitis Intractable nausea and vomiting Chronic pain syndrome Complication of surgical procedure Intercostal pain Low back pain Mild recurrent major depression (HCC) Myalgia Right hip pain Shoulder joint pain Acute kidney injury (HCC) [place] (acute kidney injury) (HCC) Gallbladder sludge RUQ pain Acute on chronic cholecystitis 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) Severe alcohol use disorder (HCC) Alcohol withdrawal syndrome without complication (HCC) Alcohol abuse Recurrent falls Alcohol induced acute pancreatitis without necrosis or infection Acute pancreatitis Etoh abuse Cirrhosis HPL HTN Plan Admit to med floor Consult GI Consult addiction med Ivf Clears Pain control KACIE BENZ DO 10/21/23 9:07 AM documented in this encounter [facility] 10-20-2023 Note NOTE: This result is for medical treatment only. Analysis performed using non-forensic procedures. [facility] 10-20-2023 Emergency department Note Bed: 12 Expected date: 10/20/23 Expected time: Means of arrival: Comments: Philip Garrido RN [id number] [facility] 10-20-2023 Emergency department Note EMERGENCY DEPARTMENT ENCOUNTER Pt Name: Woody Ni Birthdate 1960 Date of evaluation: 10/20/2023 ED Provider: Khurram Bob MD CHIEF COMPLAINT Chief Complaint Patient presents with Vomiting Pt comes to the ed today due to vomiting pts family states he is a heavy drinker pt is positive ETOH aprox 18 beers pt states he would like to speak to someone about resources to quit drinking pt is nauseous in triage. HISTORY OF PRESENT ILLNESS (Location/Symptom, Timing/Onset, Context/Setting, Quality, Duration, Modifying Factors, Severity) Note limiting factors. I wore appropriate PPE for the entirety of this encounter. HPI Woody Ni is a 63 y.o. male who presents to the emergency department with chief complaint of nausea and vomiting associated with upper abdominal pain. Patient has had nausea and vomiting for the past few days. The only thing he is drinking his alcohol. He has history of alcohol abuse. He has history of cirrhosis. He states he would like to quit drinking. Complains of persistent nausea and vomiting. Complains of upper abdominal discomfort. Denies chest pain or shortness of breath. States he received a phone call last week on outpatient laboratory studies done by his doctor that were abnormal but he does not know what the abnormal labs were. Nursing Notes were reviewed. Limitations to history: None Outside historians: None REVIEW OF SYSTEMS Review of Systems: Pertinent positives as above per history of present illness. Other systems reviewed and found to be negative to a total of 10 systems reviewed. 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 ALENDRONATE (FOSAMAX) 70 MG TABLET Take 70 mg by mouth once a week. AMLODIPINE (NORVASC) 2.5 MG TABLET Take 2.5 mg by mouth in the morning. BIOFLAVONOID PRODUCTS (ALANA-C) TABLET Every 24 hours. CALCIUM CARBONATE (TUMS) 500 MG CHEWABLE TABLET Chew 1 tablet (500 mg) daily. Do not start before February 15, 2023. CYANOCOBALAMIN (VITAMIN B-12) 1000 MCG/ML INJECTION 1 mL intramuscularly once a month DICYCLOMINE (BENTYL) 20 MG TABLET Take 1 tablet (20 mg) by mouth in the morning and 1 tablet (20 mg) at noon and 1 tablet (20 mg) in the evening. Take before meals. FAMOTIDINE (PEPCID) 20 MG TABLET Take 1 tablet (20 mg) by mouth 2 times daily. FLUTICASONE (FLONASE) 50 MCG/ACT NASAL SPRAY Administer 1 spray into each nostril daily as needed. FOLIC ACID (FOLVITE) 1 MG TABLET Take 1 tablet (1 mg) by mouth daily. Do not start before April 16, 2023. IPRATROPIUM-ALBUTEROL (DUO-NEB) 0.5-2.5 MG/3 ML NEBULIZER SOLUTION every 6 hours. KETOCONAZOLE (NIZORAL) 2 % SHAMPOO EVERY THREE DAYS LEVOTHYROXINE (SYNTHROID, LEVOXYL) 50 MCG TABLET TAKE 1 TABLET BY MOUTH DAILY LOSARTAN (COZAAR) 100 MG TABLET Take 1 tablet (100 mg) by mouth daily. Do not start before February 15, 2023. NIACIN 100 MG TABLET Every 24 hours. NITROGLYCERIN (NITROSTAT) 0.4 MG SL TABLET 1 tab(s) sublingually every 5 minutes x 3 doses prn PHENOBARBITAL (LUMINAL) 64.8 MG TABLET Take 1 tablet (64.8 mg) by mouth every 4 hours. POTASSIUM CHLORIDE ER (MICRO-K) 10 MEQ ER CAPSULE Take 10 mEq by mouth in the morning. SODIUM CHLORIDE 1 G TABLET Take 1 tablet (1 g) by mouth in the morning and 1 tablet (1 g) in the evening. Take with meals. TAMSULOSIN (FLOMAX) 0.4 MG 24 HR CAPSULE Take 0.4 mg by mouth daily. THIAMINE (VITAMIN B-1) 100 MG TABLET Take 1 tablet (100 mg) by mouth daily. Do not start before April 16, 2023. ALLERGIES Allopurinol, Codeine, and Penicillin g FAMILY HISTORY Family History Problem Relation Name Age of Onset Depression Mother Depression Maternal Grandmother SOCIAL HISTORY Social History Socioeconomic History Marital status: Tobacco Use Smoking status: Every Day Types: Cigars Smokeless tobacco: Former Vaping Use Vaping Use: Every day Substances: CBD, canabis Devices: Disposable Substance and Sexual Activity Alcohol use: Yes Alcohol/week: 42.0 standard drinks of alcohol Types: 42 Cans of beer per week Comment: TALL BOY ARE DOUBLE BEERS 42 per week Drug use: Yes Types: Marijuana Comment: daily Social Determinants of Health Transportation Needs: No Transportation Needs (06/22/2023) PRAPARE - Transportation Lack of Transportation (Medical): No Lack of Transportation (Non-Medical): No Physical Activity: Inactive (04/03/2023) Exercise Vital Sign Days of Exercise per Week: 0 days Minutes of Exercise per Session: 0 min Stress: No Stress Concern Present (04/03/2023) [employer] - Occupational Stress Questionnaire Feeling of Stress : Not at all Intimate Partner Violence: Not At Risk (06/22/2023) Humiliation, Afraid, Rape, and Kick questionnaire Fear of Current or Ex-Partner: No Emotionally Abused: No Physically Abused: No Sexually Abused: No Housing Stability: Low Risk (06/22/2023) Housing Stability Vital Sign Unable to Pay for Housing in the Last Year: No Number of Places Lived in the Last Year: 1 Unstable Housing in the Last Year: No SCREENINGS PHYSICAL EXAM ED Triage Vitals Temp Heart Rate Resp BP 10/20/23 1645 10/20/23 1645 10/20/23 1650 10/20/23 1650 36.2 C (97.2 F) 108 17 (!) 159/113 SpO2 Temp Source Heart Rate Source Patient Position 10/20/23 1645 10/20/23 1645 10/20/23 1645 -- 97 % Temporal Monitor BP Location FiO2 (%) -- -- Physical Exam: Vital signs reviewed in nurse's notes. Patient is nontoxic in appearance. No respiratory distress. Head: Normocephalic, atraumatic Eyes: Pupils are equal, round and reactive to light. EOMI. Conjunctiva clear. Sclera anicteric ENT: Mucous membranes moist. Throat shows no erythema exudates or edema. Neck: No anterior adenopathy. No tenderness or stiffness. Chest: Nontender. No obvious flail segments. Lungs: Clear to auscultation bilaterally. No wheezing rales or rhonchi. Heart: Regular rate and rhythm. No audible murmur or gallop. Abdomen: Soft, nondistended, with epigastric area tenderness. No rebound or guarding. No signs of peritonitis. Back: No midline tenderness. No flank area tenderness. Extremities: No gross deformity. No obvious tenderness. No obvious joint swelling. No calf tenderness. Negative Homans sign. Good distal pulses in all 4 extremities. Neurologic: Alert and fully oriented. No focal motor, sensory deficits in all 4 extremities. Cranial nerves II through XII grossly intact. Cerebellar testing intact. DIAGNOSTIC RESULTS Procedures/EKG: Normal sinus rhythm. Rate of 99. Left axis deviation. Right bundle branch block. Left anterior fascicular block. No acute appearing ST segment elevations. No significant change compared to previous of 06/25/2023. Today's EKG interpreted by this examiner EKG was reviewed by myself. Physician EKG interpretation can be found in [facility] (Per Emergency Physician): Chest x-ray: No acute infiltrate. No effusion. Interpreted by this examiner. Interpretation per the Radiologist below, if available at the time of this note: XR chest 1 view Final Result FINDINGS AND IMPRESSION: SUPPORT DEVICES: None OSSEOUS STRUCTURES: Unremarkable. HEART AND MEDIASTINUM: The cardiomediastinal silhouette appears unchanged from the prior exam. LUNGS AND PLEURA: The lungs are clear. No sizable pleural effusion. Report Dictated on Electronically Signed By: Richie Morrison MD Electronically Signed Date/Time: 10/20/2023 5:24 PM EST ED BEDSIDE ULTRASOUND: Performed by ED Physician - none LABS: Labs Reviewed CBC WITH AUTO DIFFERENTIAL - Abnormal Result Value Auto WBC 5.2 RBC 3.90 (*) Hemoglobin 13.1 Hematocrit 38.3 (*) MCV 98.2 (*) MCH 33.5 MCHC 34.1 RDW 13.7 Platelets 76 (*) MPV 6.9 (*) nRBC 0.2 Neutrophils Relative 59.2 Lymphocytes Relative 32.5 Monocytes Relative 6.8 Eosinophils Relative 0.6 (*) Basophils Relative 0.9 Neutrophils Absolute 3.1 Lymphocytes Absolute 1.7 Monocytes Absolute 0.4 Eosinophils Absolute 0.0 Basophils Absolute 0.0 LIPASE - Abnormal LIPASE 615 (*) BASIC METABOLIC PANEL - Abnormal SODIUM 133 (*) POTASSIUM 4.3 CHLORIDE 94 (*) CARBON DIOXIDE 19 (*) UREA NITROGEN 12 CREATININE 0.71 GLUCOSE 92 CALCIUM 9.3 ANION GAP 19 (*) eGFR >90.0 HEPATIC FUNCTION PANEL - Abnormal BILIRUBIN, TOTAL 1.4 (*) BILIRUBIN, DIRECT 0.0 ALKALINE PHOSPHATASE 105 AST (SGOT) 250 (*) ALT 85 (*) ALBUMIN 4.6 TOTAL PROTEIN 8.2 ETHANOL - Abnormal ETHANOL IN SER/PLAS 0.390 (*) Narrative: NOTE: This result is for medical treatment only. Analysis performed using non-forensic procedures. SARS-COV-2, FLU A/B, AND RSV COMBO - Normal SARS-CoV-2 Not Detected Respiratory Syncytial Virus Not Detected Influenza A Not Detected Influenza B Not Detected Narrative: Methodology: real-time, RT-PCR The SARS-CoV-2, Flu A/B, and RSV Combo assay is intended for in vitro diagnostic use under the FDA Emergency Use Authorization (EUA). This test has not been FDA cleared or approved. In compliance with this authorization, please visit www.fda.gov/media/678143/download or www.fda.gov/media/938091/download to access the applicable information sheets. TROPONIN, WITH SERIAL REFLEX - Normal TROPONIN I <0.012 Narrative: Patients with high levels of Biotin oral intake (ie >5 mg/day) may have falsely decreased Troponin levels. COMPLETE URINALYSIS - Normal Color, Urine Light Yellow Clarity, Urine Clear pH, Urine 5.0 Leukocytes, Urine Negative Nitrite, Urine Negative Protein, Urine Negative Glucose, Urine Normal Bilirubin, Urine Negative Ketones, Urine Negative Urobilinogen, Urine Normal Blood, Urine Negative SPECIFIC GRAVITY OF URINE (NUMERIC) 1.006 COMPLETE URINALYSIS WITH REFLEX TO CULTURE Narrative: The following orders were created for panel order Urinalysis Complete with reflex to Culture. Procedure Abnormality Status --------- ------ Complete Urinalysis[[id number]] Normal Final result Please view results for these tests on the individual orders. DRUGS OF ABUSE AMPHETAMINE SCREEN Negative BARBITURATES SCREEN Negative BENZODIAZEPINE SCREEN Negative COCAINE METAB. SCREEN Negative METHADONE SCREEN Negative OPIATES SCREEN Negative OXYCODONE SCREEN Negative PHENCYCLIDINE SCREEN Negative Narrative: The expected value for all of the drugs listed above is Negative. The following drugs or drug groups have been screened for by Immunoassay at the following thresholds: Amphetamine class (1000 ng/mL) Barbiturates (200 ng/mL) Benzodiazepines (200 ng/mL) Cocaine (300 ng/mL) Methadone (300 ng/mL) Opiates (300 ng/mL) Oxycodone (100 ng/mL) PCP (25 ng/mL) NOTE: These results are for medical treatment only. Analysis performed using non-forensic procedures. POSITIVE results are NOT confirmed by a more specific alternative method unless requested. If confirmation is needed, request confirmation under separate order. TROPONIN I Lab studies are obtained. Alcohol level is 390. Bilirubin mildly elevated 1.4 with mildly elevated AST and ALT. Troponin is normal. Lipase is over 600. Laboratory studies reviewed by this examiner. EMERGENCY DEPARTMENT COURSE and DIFFERENTIAL DIAGNOSIS/MDM: Vitals: Vitals: 10/20/23 1645 10/20/23 1650 BP: (!) 159/113 Pulse: 108 103 Resp: 17 Temp: 36.2 C (97.2 F) TempSrc: Temporal SpO2: 97% 98% Patient has nausea and vomiting. He does have a history of hyponatremia but does not have severe hyponatremia here. He has mildly low bicarb, mildly elevated anion gap acidosis. I suspect this is most likely alcoholic ketoacidosis. He has mildly elevated lipase that may represent a pancreatitis. Because of persistent vomiting I do feel he needs to be admitted for IV fluids and monitoring. I discussed this with Dr. Benz covering for patient's primary care provider who agrees with plans for admission. Patient is admitted in stable condition. Of note he reports he would like detox but currently there are no detox beds available. The patient presented with chief complaint of nausea vomiting. The differential diagnosis associated with this patient's presentation includes dehydration, electrolyte abnormality, alcoholism, alcohol ketoacidosis, pancreatitis. Our workup consisted of ordering/reviewing: Laboratory studies, EKG. To aid in management, I performed an independent interpretation of EKG; see my interpretation elsewhere in the chart. I also reviewed external records from Inpatient notes hospitalizations in June of this year 2 different times for treatment of alcohol abuse, alcohol withdrawal, and hyponatremia. Admission in March of this year for hyponatremia and kidney injury. I discussed their care with Admitting team Dr. Benz. Consideration for escalation of care with: Admission/observation for hydration, consideration for detox evaluation. The patient will be Admitted. The patient requires hospitalization due to intractable nausea and vomiting The patient needs Med/surg level of care and not appropriate for a lower acuity location of care due to needing IV fluids, IV medications, frequent vital sign monitoring, observation for potential alcohol withdrawal Patient is in agreement with this plan. Patient's care was significantly impacted by social determinants of health including Alcoholism. Medications sodium chloride 0.9 % bolus 1,000 mL (1,000 mL IntraVENous New Bag 10/20/231736) ondansetron (Zofran) injection 4 mg (4 mg IntraVENous Given 10/20/231736) REVAL: PROCEDURES: Unless otherwise noted below, none Procedures Patients symptoms are consistent with sepsis, severe sepsis, or septic shock (If yes use ".sepsiscoremeasure"): no FINAL IMPRESSION 1. Alcohol induced acute pancreatitis without necrosis or infection 2. Alcohol use disorder, severe, dependence (HCC) 3. Nausea and vomiting, unspecified vomiting type DISPOSITION Admit 10/20/2023 06:20:39 PM PATIENT REFERRED TO: No follow-up provider specified. DISCHARGE MEDICATIONS: New Prescriptions No medications on file (Comment: Please note this report has been produced using speech recognition software and may contain errors related to that system including errors in grammar, punctuation, and spelling, as well as words and phrases that may be inappropriate. If there are any questions or concerns please feel free to contact the dictating provider for clarification.) Khurram Bob MD (electronically signed) Emergency Medicine Provider Khurram Bob MD 10/20/23 1830 Bed: 12 Expected date: 10/20/23 Expected time: Means of arrival: Comments: Philip Garrido RN 10/20/23 2131 documented in this encounter [facility] 10-20-2023 Physician Emergency department Note EMERGENCY DEPARTMENT ENCOUNTER Pt Name: Woody Ni Birthdate 1960 Date of evaluation: 10/20/2023 ED Provider: Khurram Bob MD CHIEF COMPLAINT Chief Complaint Patient presents with Vomiting Pt comes to the ed today due to vomiting pts family states he is a heavy drinker pt is positive ETOH aprox 18 beers pt states he would like to speak to someone about resources to quit drinking pt is nauseous in triage. HISTORY OF PRESENT ILLNESS (Location/Symptom, Timing/Onset, Context/Setting, Quality, Duration, Modifying Factors, Severity) Note limiting factors. I wore appropriate PPE for the entirety of this encounter. HPI Woody Ni is a 63 y.o. male who presents to the emergency department with chief complaint of nausea and vomiting associated with upper abdominal pain. Patient has had nausea and vomiting for the past few days. The only thing he is drinking his alcohol. He has history of alcohol abuse. He has history of cirrhosis. He states he would like to quit drinking. Complains of persistent nausea and vomiting. Complains of upper abdominal discomfort. Denies chest pain or shortness of breath. States he received a phone call last week on outpatient laboratory studies done by his doctor that were abnormal but he does not know what the abnormal labs were. Nursing Notes were reviewed. Limitations to history: None Outside historians: None REVIEW OF SYSTEMS Review of Systems: Pertinent positives as above per history of present illness. Other systems reviewed and found to be negative to a total of 10 systems reviewed. 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 ALENDRONATE (FOSAMAX) 70 MG TABLET Take 70 mg by mouth once a week. AMLODIPINE (NORVASC) 2.5 MG TABLET Take 2.5 mg by mouth in the morning. BIOFLAVONOID PRODUCTS (ALANA-C) TABLET Every 24 hours. CALCIUM CARBONATE (TUMS) 500 MG CHEWABLE TABLET Chew 1 tablet (500 mg) daily. Do not start before February 15, 2023. CYANOCOBALAMIN (VITAMIN B-12) 1000 MCG/ML INJECTION 1 mL intramuscularly once a month DICYCLOMINE (BENTYL) 20 MG TABLET Take 1 tablet (20 mg) by mouth in the morning and 1 tablet (20 mg) at noon and 1 tablet (20 mg) in the evening. Take before meals. FAMOTIDINE (PEPCID) 20 MG TABLET Take 1 tablet (20 mg) by mouth 2 times daily. FLUTICASONE (FLONASE) 50 MCG/ACT NASAL SPRAY Administer 1 spray into each nostril daily as needed. FOLIC ACID (FOLVITE) 1 MG TABLET Take 1 tablet (1 mg) by mouth daily. Do not start before April 16, 2023. IPRATROPIUM-ALBUTEROL (DUO-NEB) 0.5-2.5 MG/3 ML NEBULIZER SOLUTION every 6 hours. KETOCONAZOLE (NIZORAL) 2 % SHAMPOO EVERY THREE DAYS LEVOTHYROXINE (SYNTHROID, LEVOXYL) 50 MCG TABLET TAKE 1 TABLET BY MOUTH DAILY LOSARTAN (COZAAR) 100 MG TABLET Take 1 tablet (100 mg) by mouth daily. Do not start before February 15, 2023. NIACIN 100 MG TABLET Every 24 hours. NITROGLYCERIN (NITROSTAT) 0.4 MG SL TABLET 1 tab(s) sublingually every 5 minutes x 3 doses prn PHENOBARBITAL (LUMINAL) 64.8 MG TABLET Take 1 tablet (64.8 mg) by mouth every 4 hours. POTASSIUM CHLORIDE ER (MICRO-K) 10 MEQ ER CAPSULE Take 10 mEq by mouth in the morning. SODIUM CHLORIDE 1 G TABLET Take 1 tablet (1 g) by mouth in the morning and 1 tablet (1 g) in the evening. Take with meals. TAMSULOSIN (FLOMAX) 0.4 MG 24 HR CAPSULE Take 0.4 mg by mouth daily. THIAMINE (VITAMIN B-1) 100 MG TABLET Take 1 tablet (100 mg) by mouth daily. Do not start before April 16, 2023. ALLERGIES Allopurinol, Codeine, and Penicillin g FAMILY HISTORY Family History Problem Relation Name Age of Onset Depression Mother Depression Maternal Grandmother SOCIAL HISTORY Social History Socioeconomic History Marital status: Tobacco Use Smoking status: Every Day Types: Cigars Smokeless tobacco: Former Vaping Use Vaping Use: Every day Substances: CBD, canabis Devices: Disposable Substance and Sexual Activity Alcohol use: Yes Alcohol/week: 42.0 standard drinks of alcohol Types: 42 Cans of beer per week Comment: TALL BOY ARE DOUBLE BEERS 42 per week Drug use: Yes Types: Marijuana Comment: daily Social Determinants of Health Transportation Needs: No Transportation Needs (06/22/2023) PRAPARE - Transportation Lack of Transportation (Medical): No Lack of Transportation (Non-Medical): No Physical Activity: Inactive (04/03/2023) Exercise Vital Sign Days of Exercise per Week: 0 days Minutes of Exercise per Session: 0 min Stress: No Stress Concern Present (04/03/2023) [employer] - Occupational Stress Questionnaire Feeling of Stress : Not at all Intimate Partner Violence: Not At Risk (06/22/2023) Humiliation, Afraid, Rape, and Kick questionnaire Fear of Current or Ex-Partner: No Emotionally Abused: No Physically Abused: No Sexually Abused: No Housing Stability: Low Risk (06/22/2023) Housing Stability Vital Sign Unable to Pay for Housing in the Last Year: No Number of Places Lived in the Last Year: 1 Unstable Housing in the Last Year: No SCREENINGS PHYSICAL EXAM ED Triage Vitals Temp Heart Rate Resp BP 10/20/23 1645 10/20/23 1645 10/20/23 1650 10/20/23 1650 36.2 C (97.2 F) 108 17 (!) 159/113 SpO2 Temp Source Heart Rate Source Patient Position 10/20/23 1645 10/20/23 1645 10/20/23 1645 -- 97 % Temporal Monitor BP Location FiO2 (%) -- -- Physical Exam: Vital signs reviewed in nurse's notes. Patient is nontoxic in appearance. No respiratory distress. Head: Normocephalic, atraumatic Eyes: Pupils are equal, round and reactive to light. EOMI. Conjunctiva clear. Sclera anicteric ENT: Mucous membranes moist. Throat shows no erythema exudates or edema. Neck: No anterior adenopathy. No tenderness or stiffness. Chest: Nontender. No obvious flail segments. Lungs: Clear to auscultation bilaterally. No wheezing rales or rhonchi. Heart: Regular rate and rhythm. No audible murmur or gallop. Abdomen: Soft, nondistended, with epigastric area tenderness. No rebound or guarding. No signs of peritonitis. Back: No midline tenderness. No flank area tenderness. Extremities: No gross deformity. No obvious tenderness. No obvious joint swelling. No calf tenderness. Negative Homans sign. Good distal pulses in all 4 extremities. Neurologic: Alert and fully oriented. No focal motor, sensory deficits in all 4 extremities. Cranial nerves II through XII grossly intact. Cerebellar testing intact. DIAGNOSTIC RESULTS Procedures/EKG: Normal sinus rhythm. Rate of 99. Left axis deviation. Right bundle branch block. Left anterior fascicular block. No acute appearing ST segment elevations. No significant change compared to previous of 06/25/2023. Today's EKG interpreted by this examiner EKG was reviewed by myself. Physician EKG interpretation can be found in [facility] (Per Emergency Physician): Chest x-ray: No acute infiltrate. No effusion. Interpreted by this examiner. Interpretation per the Radiologist below, if available at the time of this note: XR chest 1 view Final Result FINDINGS AND IMPRESSION: SUPPORT DEVICES: None OSSEOUS STRUCTURES: Unremarkable. HEART AND MEDIASTINUM: The cardiomediastinal silhouette appears unchanged from the prior exam. LUNGS AND PLEURA: The lungs are clear. No sizable pleural effusion. Report Dictated on Electronically Signed By: Richie Morrison MD Electronically Signed Date/Time: 10/20/2023 5:24 PM EST ED BEDSIDE ULTRASOUND: Performed by ED Physician - none LABS: Labs Reviewed CBC WITH AUTO DIFFERENTIAL - Abnormal Result Value Auto WBC 5.2 RBC 3.90 (*) Hemoglobin 13.1 Hematocrit 38.3 (*) MCV 98.2 (*) MCH 33.5 MCHC 34.1 RDW 13.7 Platelets 76 (*) MPV 6.9 (*) nRBC 0.2 Neutrophils Relative 59.2 Lymphocytes Relative 32.5 Monocytes Relative 6.8 Eosinophils Relative 0.6 (*) Basophils Relative 0.9 Neutrophils Absolute 3.1 Lymphocytes Absolute 1.7 Monocytes Absolute 0.4 Eosinophils Absolute 0.0 Basophils Absolute 0.0 LIPASE - Abnormal LIPASE 615 (*) BASIC METABOLIC PANEL - Abnormal SODIUM 133 (*) POTASSIUM 4.3 CHLORIDE 94 (*) CARBON DIOXIDE 19 (*) UREA NITROGEN 12 CREATININE 0.71 GLUCOSE 92 CALCIUM 9.3 ANION GAP 19 (*) eGFR >90.0 HEPATIC FUNCTION PANEL - Abnormal BILIRUBIN, TOTAL 1.4 (*) BILIRUBIN, DIRECT 0.0 ALKALINE PHOSPHATASE 105 AST (SGOT) 250 (*) ALT 85 (*) ALBUMIN 4.6 TOTAL PROTEIN 8.2 ETHANOL - Abnormal ETHANOL IN SER/PLAS 0.390 (*) Narrative: NOTE: This result is for medical treatment only. Analysis performed using non-forensic procedures. SARS-COV-2, FLU A/B, AND RSV COMBO - Normal SARS-CoV-2 Not Detected Respiratory Syncytial Virus Not Detected Influenza A Not Detected Influenza B Not Detected Narrative: Methodology: real-time, RT-PCR The SARS-CoV-2, Flu A/B, and RSV Combo assay is intended for in vitro diagnostic use under the FDA Emergency Use Authorization (EUA). This test has not been FDA cleared or approved. In compliance with this authorization, please visit www.fda.gov/media/161358/download or www.fda.gov/media/709690/download to access the applicable information sheets. TROPONIN, WITH SERIAL REFLEX - Normal TROPONIN I <0.012 Narrative: Patients with high levels of Biotin oral intake (ie >5 mg/day) may have falsely decreased Troponin levels. COMPLETE URINALYSIS - Normal Color, Urine Light Yellow Clarity, Urine Clear pH, Urine 5.0 Leukocytes, Urine Negative Nitrite, Urine Negative Protein, Urine Negative Glucose, Urine Normal Bilirubin, Urine Negative Ketones, Urine Negative Urobilinogen, Urine Normal Blood, Urine Negative SPECIFIC GRAVITY OF URINE (NUMERIC) 1.006 COMPLETE URINALYSIS WITH REFLEX TO CULTURE Narrative: The following orders were created for panel order Urinalysis Complete with reflex to Culture. Procedure Abnormality Status --------- ------ Complete Urinalysis[[id number]] Normal Final result Please view results for these tests on the individual orders. DRUGS OF ABUSE AMPHETAMINE SCREEN Negative BARBITURATES SCREEN Negative BENZODIAZEPINE SCREEN Negative COCAINE METAB. SCREEN Negative METHADONE SCREEN Negative OPIATES SCREEN Negative OXYCODONE SCREEN Negative PHENCYCLIDINE SCREEN Negative Narrative: The expected value for all of the drugs listed above is Negative. The following drugs or drug groups have been screened for by Immunoassay at the following thresholds: Amphetamine class (1000 ng/mL) Barbiturates (200 ng/mL) Benzodiazepines (200 ng/mL) Cocaine (300 ng/mL) Methadone (300 ng/mL) Opiates (300 ng/mL) Oxycodone (100 ng/mL) PCP (25 ng/mL) NOTE: These results are for medical treatment only. Analysis performed using non-forensic procedures. POSITIVE results are NOT confirmed by a more specific alternative method unless requested. If confirmation is needed, request confirmation under separate order. TROPONIN I Lab studies are obtained. Alcohol level is 390. Bilirubin mildly elevated 1.4 with mildly elevated AST and ALT. Troponin is normal. Lipase is over 600. Laboratory studies reviewed by this examiner. EMERGENCY DEPARTMENT COURSE and DIFFERENTIAL DIAGNOSIS/MDM: Vitals: Vitals: 10/20/23 1645 10/20/23 1650 BP: (!) 159/113 Pulse: 108 103 Resp: 17 Temp: 36.2 C (97.2 F) TempSrc: Temporal SpO2: 97% 98% Patient has nausea and vomiting. He does have a history of hyponatremia but does not have severe hyponatremia here. He has mildly low bicarb, mildly elevated anion gap acidosis. I suspect this is most likely alcoholic ketoacidosis. He has mildly elevated lipase that may represent a pancreatitis. Because of persistent vomiting I do feel he needs to be admitted for IV fluids and monitoring. I discussed this with Dr. Benz covering for patient's primary care provider who agrees with plans for admission. Patient is admitted in stable condition. Of note he reports he would like detox but currently there are no detox beds available. The patient presented with chief complaint of nausea vomiting. The differential diagnosis associated with this patient's presentation includes dehydration, electrolyte abnormality, alcoholism, alcohol ketoacidosis, pancreatitis. Our workup consisted of ordering/reviewing: Laboratory studies, EKG. To aid in management, I performed an independent interpretation of EKG; see my interpretation elsewhere in the chart. I also reviewed external records from Inpatient notes hospitalizations in June of this year 2 different times for treatment of alcohol abuse, alcohol withdrawal, and hyponatremia. Admission in March of this year for hyponatremia and kidney injury. I discussed their care with Admitting team Dr. Benz. Consideration for escalation of care with: Admission/observation for hydration, consideration for detox evaluation. The patient will be Admitted. The patient requires hospitalization due to intractable nausea and vomiting The patient needs Med/surg level of care and not appropriate for a lower acuity location of care due to needing IV fluids, IV medications, frequent vital sign monitoring, observation for potential alcohol withdrawal Patient is in agreement with this plan. Patient's care was significantly impacted by social determinants of health including Alcoholism. Medications sodium chloride 0.9 % bolus 1,000 mL (1,000 mL IntraVENous New Bag 10/20/231736) ondansetron (Zofran) injection 4 mg (4 mg IntraVENous Given 10/20/231736) REVAL: PROCEDURES: Unless otherwise noted below, none Procedures Patients symptoms are consistent with sepsis, severe sepsis, or septic shock (If yes use ".sepsiscoremeasure"): no FINAL IMPRESSION 1. Alcohol induced acute pancreatitis without necrosis or infection 2. Alcohol use disorder, severe, dependence (HCC) 3. Nausea and vomiting, unspecified vomiting type DISPOSITION Admit 10/20/2023 06:20:39 PM PATIENT REFERRED TO: No follow-up provider specified. DISCHARGE MEDICATIONS: New Prescriptions No medications on file (Comment: Please note this report has been produced using speech recognition software and may contain errors related to that system including errors in grammar, punctuation, and spelling, as well as words and phrases that may be inappropriate. If there are any questions or concerns please feel free to contact the dictating provider for clarification.) Khurram Bob MD (electronically signed) Emergency Medicine Provider Khurram Bob MD 10/20/23 [facility] [employer] 07-05-2023 History of Present illness Narrative [facility] Progress Note Subjective/ 63 y.o. year old male who we are seeing in consultation for hyponatremia. Restless and upset that nobody is bringing him any pain medications or anxiety medications No shortness of breath No issues with UOP No other new issues at this time ROS done and negative unless mentioned as above No change in PFSH All data labs/interval notes and overnight issues are reviewed Objective/ Vitals: 07/04/23 1500 07/04/23203807/04/23204207/05/23 0736 BP: 138/82 (!) 149/88 (!) 147/90 BP Location: Left arm Left arm Patient Position: Lying Lying Pulse: 100 98 98 89 Resp: 17 18 17 Temp: 37 C (98.6 F) 36.7 C (98 F) 36.8 C (98.3 F) TempSrc: Oral Temporal Temporal SpO2: 99% 98% 98% 97% Height: PF: No intake or output data in the 24 hours ending 07/05/23 1511 amLODIPine, 2.5 mg, Oral, Daily dicyclomine, 20 mg, Oral, TID AC enoxaparin, 40 mg, SubCUTAneous, Daily famotidine, 20 mg, Oral, BID folic acid, 1 mg, Oral, Daily influenza, 0.5 mL, IntraMUSCular, Prior to discharge ipratropium-albuterol, 3 mL, Nebulization, BID ipratropium-albuterol, 3 mL, Nebulization, Once levothyroxine, 50 mcg, Oral, qAM AC losartan, 100 mg, Oral, Daily nicotine, 1 patch, TransDERmal, Daily potassium chloride, 10 mEq, Oral, Daily sodium chloride, 1 g, Oral, BID WC tamsulosin, 0.4 mg, Oral, Daily thiamine, 100 mg, Oral, Daily PRN medications: acetaminophen OR acetaminophen, calcium carbonate, fluticasone, ondansetron ODT OR ondansetron, oxyCODONE-acetaminophen, polyethylene glycol (PEG) 3350, zolpidem Constitutional: Alert, fatigued, no apparent distress Eyes: No icterus, no pallor HEENT: no pallor/cyanosis or icterus Cardiovascular: tachycardia+, S1, S2 without m/r/g Respiratory: CTA B without w/r/r GI: +bs, soft, nt : pascual -ve Ext: no LE edema Neck: supple, no thyroid enlargement, no JVD elevation Skin: warm, moist, no rashes Results from last 7 days Lab Units 07/05/23 0422 07/04/23 1726 07/04/23 0405 SODIUM mmol/L 130* 132* 130* POTASSIUM mmol/L 4.4 4.8 4.2 CHLORIDE mmol/L 100 100 102 CO2 mmol/L 25 25 20* BUN mg/dL 11 12 8* CREATININE mg/dL 0.87 0.97 0.90 GLUCOSE mg/dL 88 107* 140* CALCIUM mg/dL 9.3 9.5 8.7 Results from last 7 days Lab Units 07/05/23 0422 07/04/23 0405 07/02/23 0507 WBC AUTO 10*3/uL 4.8 3.2* 3.3* HEMOGLOBIN g/dL 10.1* 9.5* 10.4* HEMATOCRIT % 29.4* 28.1* 29.2* PLATELETS AUTO 10*3/uL 219 190 197 Assessment/Plan Acute hyponatremia 2/2 beer potomania +/- volume depletion from poor po intake 2. Failure to thrive 3. ETOH abuse 4. Severe protein calorie malnutrition 5. Failure to thrive 6. Fall, multiple 7. HTN essential Plan: -Na levels stable -C/w FR: 1.2L -Encourage 3 meals a day high in protein -Na rate of correction not to exceed >8mEq/L/day to prevent neurological sequelae, please notify nephrology if rate of rise is exceeding above parameters -PVR not done, likely would not be accurate -HCO3 dropped, monitor -Alcohol cessation education -Ok for discharge from renal standpoint for Na >125 -We will follow closely with you -Related concerns of him wanting pain and anxiety meds to patient's RN to be forwarded to primary team. Pt requesting AMA papers. Dr. Benz aware of pt concerns. Discussed issues re: cont. Care and rehab. Pt states, "leaving anyway." Called to room per pt. Pt states, no one has brought meds, offered him water." Teary eyed, on phone with family member discussing same concerns.Assured POC was in place, and Dr Benz was aware of concerns. Called to room per pt, pt noted to be sitting in chair, states, Wants something now for pain and nerves. Dr. Benz aware. [facility] Progress Note Subjective/ 63 y.o. year old male who we are seeing in consultation for hyponatremia. NAEON Resting in chair Family at bedside No issues with UOP No other new issues at this time ROS done and negative unless mentioned as above No change in PFSH All data labs/interval notes and overnight issues are reviewed Objective/ Vitals: 07/03/23 0900 07/03/23 1131 07/03/23201407/04/23 0900 BP: 111/80 (!) 147/92 BP Location: Left arm Patient Position: Sitting Pulse: 102 99 109 Resp: 19 18 20 Temp: 36.7 C (98.1 F) 36.7 C (98.1 F) TempSrc: Temporal Temporal SpO2: 99% 98% 99% Height: 1.778 m (5' 10") PF: Intake/Output Summary (Last 24 hours) at 07/04/2023 1524 Last data filed at 07/03/2023 1700 Gross per 24 hour Intake -- Output 500 ml Net -500 ml amLODIPine, 2.5 mg, Oral, Daily dicyclomine, 20 mg, Oral, TID AC enoxaparin, 40 mg, SubCUTAneous, Daily famotidine, 20 mg, Oral, BID folic acid, 1 mg, Oral, Daily influenza, 0.5 mL, IntraMUSCular, Prior to discharge ipratropium-albuterol, 3 mL, Nebulization, BID ipratropium-albuterol, 3 mL, Nebulization, Once levothyroxine, 50 mcg, Oral, qAM AC losartan, 100 mg, Oral, Daily nicotine, 1 patch, TransDERmal, Daily potassium chloride, 10 mEq, Oral, Daily sodium chloride, 1 g, Oral, BID WC tamsulosin, 0.4 mg, Oral, Daily thiamine, 100 mg, Oral, Daily PRN medications: acetaminophen OR acetaminophen, calcium carbonate, fluticasone, LORazepam OR LORazepam OR LORazepam OR LORazepam OR LORazepam OR LORazepam OR LORazepam OR LORazepam, ondansetron ODT OR ondansetron, oxyCODONE-acetaminophen, polyethylene glycol (PEG) 3350 Constitutional: Alert, fatigued, no apparent distress Eyes: No icterus, no pallor HEENT: no pallor/cyanosis or icterus Cardiovascular: tachycardia+, S1, S2 without m/r/g Respiratory: CTA B without w/r/r GI: +bs, soft, nt : pascual -ve Ext: no LE edema Neck: supple, no thyroid enlargement, no JVD elevation Skin: warm, moist, no rashes Results from last 7 days Lab Units 07/04/23 0405 07/04/23 0110 07/03/23 2135 SODIUM mmol/L 130* 130* 131* POTASSIUM mmol/L 4.2 4.5 4.5 CHLORIDE mmol/L 102 103 103 CO2 mmol/L 20* 24 23 BUN mg/dL 8* 10 9 CREATININE mg/dL 0.90 0.85 0.82 GLUCOSE mg/dL 140* 98 112* CALCIUM mg/dL 8.7 8.9 9.1 Results from last 7 days Lab Units 07/04/23 0405 07/02/23 0507 07/01/23 0505 WBC AUTO 10*3/uL 3.2* 3.3* 5.1 HEMOGLOBIN g/dL 9.5* 10.4* 12.2* HEMATOCRIT % 28.1* 29.2* 34.1* PLATELETS AUTO 10*3/uL 190 197 242 Assessment/Plan Acute hyponatremia 2/2 beer potomania +/- volume depletion from poor po intake 2. Failure to thrive 3. ETOH abuse 4. Severe protein calorie malnutrition 5. Failure to thrive 6. Fall, multiple 7. HTN essential Plan: -Na levels better with IVF. -C/w FR: 1.2L -Encourage 3 meals a day high in protein -Na rate of correction not to exceed >8mEq/L/day to prevent neurological sequelae, please notify nephrology if rate of rise is exceeding above parameters -PVR not done, likely would not be accurate -HCO3 dropped, monitor -Alcohol cessation education -Ok for discharge from renal standpoint for Na >125 -We will follow closely with you Department of Family Medicine Daily Progress Note Subjective Chief Complaint (required for billing): Hyponatremia Pt all concerned about his money today states he cannot go to a snf they take all his money and he cant even call home because his phone was shut of ROS: Review of Systems Objective BP (!) 147/92 Pulse 109 Temp 36.7 C (98.1 F) (Temporal) Resp 20 Ht 5' 10" (1.778 m) SpO2 99% PF (!) 16 L/min BMI 23.68 kg/m Physical Exam Pt is alert and oriented x 3 Heent wnl Heart regular Lungs ctab Abd benign Ext no edema Labs Notable Labs: Current Medications Medication orders reviewed, see MAR Assessment/Plan Principal Problem: Hyponatremia Active Problems: Severe malnutrition (CMS/HCC) (HCC) Severe alcohol use disorder (HCC) Recurrent falls Alcoholism Frequent falls Chronic back pain Hyponatremia Cirrhoisis HTN Plan Awaiting calls back from rehab centers PT now recommending snf FEN:Adult diet Regular GI prophylaxis: PPI ordered DVT prophylaxis: lovenox # Anticipated Discharge - Date - 2d - Location - Skilled Facility - Pending the following - auth KACIE BENZ DO 07/04/23 9:28 AM Physical Therapy Facility/Department: [address] Physical Therapy Daily Treatment Note NAME: Woody Ni : 1960 Date of Service: 07/03/2023 Discharge Recommendations: Detention Facility PT Equipment Recommendations Equipment Needed: No Assessment Requires PT Follow-Up: Yes Assessment: Pt demonstrates continued need for 1 person physical assist for OOB mobility as patient demonstrates poor insight and safety awareness as well as instability with no device placing him at a high risk of falling. Pt is currently CGA for transfers and ambulation with FWW and Eliezer for ambulation with no device. Pt limited by weakness and fatigue and could beneift from continued PT in order to progress toward goals. SNF recommendation is appropriate at this time as 24 hour assist is not an option for home going. Patient Diagnosis(es): The encounter diagnosis was Hyponatremia. has a past medical history of Acid reflux, Alcoholism (CMS/HCC) (HCC), Anxiety, Back pain, Chronic pain syndrome, Cirrhosis (HCC), Dehydration, Depression, Diabetes mellitus (HCC), Gout, Hepatitis C, Hypertension, Hyponatremia, 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, 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, Nausea and vomiting, Pain management, and Sleep apnea. has a past surgical history that includes Back surgery; Laminectomy; [place] tooth extraction; lap,cholecystectomy (historical) (N/A, 01/05/2023); and Cholecystectomy. Restrictions Restrictions/Precautions Restrictions/Precautions: General Precautions, Fall Risk, Seizure (CIWA) Required Braces or Orthoses?: No Subjective General Chart Reviewed: Yes Patient Assessed for Rehabilitation Services: Yes Additional Pertinent Hx: Pt admitted 06/30 with frequent falls, wishing to detox from alcohol. Of note, pt was recently admitted for the same concerns but returned home from the SNF and continued to drink. Family / Caregiver Present: Yes (spouse) Follows Commands: Within Functional Limits General Comment Comments: Per RN patient okay for therapy. Subjective Subjective: Pt pleasant and agreeable to therapy. Patient Stated Goal: Pt did not state Pain Assessment Pain Assessment: No/denies pain Cognition/Orientation Overall Cognitive Status: Exceptions Arousal/Alertness: Appropriate responses to stimuli Following Commands: Follows all commands without difficulty Attention Span: Appears intact Safety Judgement: Decreased awareness of need for assistance, Decreased awareness of need for safety Insights: Decreased awareness of deficits Cognition Comment: mild decreased safety awareness as pt reports not using SPC or FWW at home with frequent falls Overall Orientation Status: Within Functional Limits Objective Bed mobility Supine to Sit: Supervision Sit to Supine: (NT patient up in chair end of session) Scooting: Supervision Comment: Denies dizziness with positional changes. Transfers Sit to Stand: Contact guard assistance (to no device from EOB and to FWW from commode) Stand to sit: Contact guard assistance Comment: Denies dizziness on initial stance. No true LOB, noted postural sway on initial stance. Cues for hand placement on descent to improve safety. Ambulation Ambulation: Yes Ambulation 1 Surface 1: Level tile Device 1: Rolling walker Assistance 1: Contact guard Quality of Gait Comment 1: Pt demonstrates short reciprocal stepping pattern, B foot clearance, no true LOB, instability with turns and fatigue. Distance (ft) 1: 80 ft x 2, 10 ft x 1 Comments 1: Pt demonstrates need for cues to use FWW as patient reports he does not use a device when his is not home and no one tells him to as he doesn't think he needs it. Pt demonstrates need for cues for posture and proximity to device in order to improve safety and adjust/maintain COG over JM. Pt adjusts with cues, however does not maintain. Ambulation 2 Surface 2: Level tile Device 2: No device Assistance 2: Minimum assistance Quality of Gait Comment 2: Pt demonstrates short reciprocal stepping pattern, B foot clearance, wide JM, postural sway and 2 LOB with assist to correct Distance (ft) 2: 40 ft x 1 Comments 2: Completed ambulation without device to challenge balance and demonstrate instability to patient as compared to ambulating with FWW. Pt demonstrates poor insight into deficits and limitations, and decreased balance recovery strategies at this time placing him at a high risk of falling. Exercises Comments: Declined to complete at this time due to fatigue after mobility with PT and recent OT session. Plan # of visits: 5 visits Current Treatment Recommendations: Strengthening, Balance Training, Functional Mobility Training, Transfer Training, Endurance Training, Gait Training, Stair training, Neuromuscular Re-education, Pain Management, Home Exercise Program, Safety Education & Training, Patient/Caregiver Education & Training, Equipment Evaluation, Education, & procurement, Positioning Plan Comment: Goals and/or treatment plan were established in collaboration with patient. Safety Safety Devices Type of Devices: All fall risk precautions in place, Call light within reach, Gait belt, Patient at risk for falls, Nurse notified, No alarms engaged upon entry into room, Left in chair AM-PAC Score AM-PAC Inpatient Mobility Raw Score (No Stairs) : 15 Goals Encounter Problems Encounter Problems (Active) Exercise Patient will complete lower extremity exercises for 1-2 sets / 5-10 reps in order to improve strength and activity tolerance for mobility. (Not Addressed) Start: 07/01/23 Expected End: 07/08/23 Mobility Patient will ambulate 100 feet with modified independence and rolling walker in order to improve safety and independence with mobility. (Progressing) Start: 07/01/23 Expected End: 07/08/23 Patient will ascend and descend 8 stairs with one railing and SBA in order to safely negotiate home. (Not Addressed) Start: 07/01/23 Expected End: 07/08/23 Transfers Patient will perform bed mobility with modified independence in order to improve independence and prepare for out of bed mobility. (Progressing) Start: 07/01/23 Expected End: 07/08/23 Patient will complete functional transfer with least restrictive device with modified independence in order to prepare for ambulation. (Progressing) Start: 07/01/23 Expected End: 07/08/23 Education Education Given To: Patient, Family Education Provided: Goals, Energy Conservation, PT Role, General Safety, Gait Training, Plan of Care, Discharge recommendations, Functional Mobility Training, Equipment, Transfer Training, Precautions, Injury Prevention Education Method: Demonstration, Verbal Barriers to Learning: None Education Outcome: Verbalized understanding, Demonstrated understanding, Continued education needed Therapy Time Individual Co-treatment Time In 1016 Time Out 1029 Minutes 13 Timed Code Treatment Minutes: 11 Minutes (gait x 1) Debora Li PT Nutrition Assessment Type and Reason for Visit: Initial (DTR ref) Nutrition Recommendations/Plan: Continue regular diet. Appetite/intakes are adequate this date. Initiate Ensure Plus TID per pt request. Intakes are good at this time, but with poor nutrition prior to admission. Ensure Plus High Protein provides 350 kcals, 20g protein per serving. Monitor %PO intakes, PO tolerance/GI status, weight trends, labs, overall nutrition status. Malnutrition Assessment: Malnutrition Status: At risk for malnutrition (Comment) (chronic EtOH) Context: Social/Environmental Circumstances Findings of the 6 clinical characteristics of malnutrition: Energy Intake: Less than 75% estimated energy requirements for 3 months or longer (inconsistent nutrition r/t alcohol intake.) Weight Loss: No significant weight loss Body Fat Loss: Unable to assess (did not complete NFPE pt in the middle of lunch) Muscle Mass Loss: Unable to assess Fluid Accumulation: Mild Extremities Sterilisation Technician Strength: Not Performed Nutrition Assessment: Pt admitted 06/30 requesting to detox from alcohol and be placed in rehab facility. Pt recently left AMA from another rehab facility ([facility]) and has been drinking at home since. Family brought pt in d/t fear of pt injuring himself d/t frequent falls. Pt with PMH of anxiety, chronic pain syndrome, EtOH abuse, liver cirrhosis, HTN, T2DM (a1c 4.7% 03/2023), Hep C, hypothyroidism, gout, depression. SHE 0.270 on admit. Pt does have hx of meeting severe malnutrition in March,. Weight appears to of been maintained from that time period (~75kg). Pt reports hx of weighing over 200# a year ago, difficult to pinpoint when this was as there is an office visit weight of 164# 06/25/22. Pt is currently on a regular diet. Nephro following for hyponatremia. Most recent intake 100%. Pt reports good appetite/intakes at this time. Does admit to poor PO prior to admission r/t alcohol. Pt does not have teeth- denies need to alter textures of menu items. Also reports chronic sore throat r/t chronic frequent emesis. Pt is requesting Ensure Plus TID. Estimated Daily Nutrient Needs: Energy Requirements Based On: Kcal/kg Weight Used for Energy Requirements: [place] Weight for Energy Calculation (kg): 75 kg Total Energy Requirements (kcals/day): 2667-4844 Weight Used for Protein Requirements: [place] Weight in Kg Used for Protein Requirements: 75 kg Estimated Total Protein (g/day): 85-100 Estimated Daily Total Fluid (ml/day): Nutrition Related Findings: A&Ox4; +1BLE edema; Pranav 19; +BS; diarrhea; distended abd. Wound Type: None Current Nutrition Therapies: Adult diet Regular Current Oral Intake Average Meal Intake: 76-100% Average Supplements Intake: None Ordered Anthropometric Measures: Height: 177.8 cm (5' 10") Current Body Weight: 74.8 kg (165 lb) Usual Body Weight: 80.7 kg (178 lb) % Weight Change (Calculated): -7.3 [place] Body Weight (lbs) (Calculated): 166 lbs [place] Body Weight (Kg) (Calculated): 75 kg % [place] Body Weight (Calculated): 99.4 % BMI (kg/m2) (Calculated): 23.7 BMI Categories: Normal Weight (BMI 18.5-24.9) Nutrition Diagnosis: Predicted inadequate energy intake related to psychological cause or life stress as evidenced by poor intake prior to admission (chronic EtOH use.) related to as evidenced by Nutrition Interventions: Nutrition Education/Counseling: No recommendation at this time Coordination of Nutrition Care: Continue to monitor while inpatient Goals: Goals: Meet at least 75% of estimated needs, prior to discharge Nutrition Monitoring and Evaluation: Food/Nutrient Intake Outcomes: Diet Advancement/Tolerance, Food and Nutrient Intake, Supplement Intake Physical Signs/Symptoms Outcomes: Biochemical Data, Chewing or Swallowing, GI Status, Fluid Status or Edema, Hemodynamic Status, Nutrition Focused Physical Findings, Skin, Weight, Meal Time Behavior, Diarrhea Discharge Planning: Too soon to determine Christine Viveros RD Contact: [phone] [facility] Progress Note Subjective/ 63 y.o. year old male who we are seeing in consultation for hyponatremia. NAEON BP is high Could be related to pain Resting in chair Family at bedside No issues with UOP No other new issues at this time ROS done and negative unless mentioned as above No change in PFSH All data labs/interval notes and overnight issues are reviewed Objective/ Vitals: 07/03/23 0120 07/03/23 0750 07/03/23 0900 07/03/23 1131 BP: (!) 156/93 (!) 146/80 BP Location: Patient Position: Pulse: 92 101 102 Resp: 18 19 Temp: 36.6 C (97.8 F) 36.7 C (98.1 F) TempSrc: Temporal Temporal SpO2: 98% 98% 99% Height: 1.778 m (5' 10") PF: No intake or output data in the 24 hours ending 07/03/23 1247 amLODIPine, 2.5 mg, Oral, Daily dicyclomine, 20 mg, Oral, TID AC enoxaparin, 40 mg, SubCUTAneous, Daily famotidine, 20 mg, Oral, BID folic acid, 1 mg, Oral, Daily influenza, 0.5 mL, IntraMUSCular, Prior to discharge ipratropium-albuterol, 3 mL, Nebulization, BID levothyroxine, 50 mcg, Oral, qAM AC losartan, 100 mg, Oral, Daily nicotine, 1 patch, TransDERmal, Daily PHENobarbital, 32.4 mg, Oral, q8h potassium chloride, 10 mEq, Oral, Daily sodium chloride, 1 g, Oral, BID WC tamsulosin, 0.4 mg, Oral, Daily thiamine, 100 mg, Oral, Daily sodium chloride, 100 mL/hr PRN medications: acetaminophen OR acetaminophen, fluticasone, LORazepam OR LORazepam OR LORazepam OR LORazepam OR LORazepam OR LORazepam OR LORazepam OR LORazepam, ondansetron ODT OR ondansetron, oxyCODONE-acetaminophen, polyethylene glycol (PEG) 3350 Constitutional: Alert, fatigued, no apparent distress Eyes: No icterus, no pallor HEENT: no pallor/cyanosis or icterus Cardiovascular: tachycardia+, S1, S2 without m/r/g Respiratory: CTA B without w/r/r GI: +bs, soft, nt : pascual -ve Ext: no LE edema Neck: supple, no thyroid enlargement, no JVD elevation Skin: warm, moist, no rashes Results from last 7 days Lab Units 07/03/23 0528 07/03/23 0000 07/02/23 2043 SODIUM mmol/L 127* 126* 127* POTASSIUM mmol/L 4.4 3.9 3.9 CHLORIDE mmol/L 98 98 97* CO2 mmol/L 23 BUN mg/dL 6* 7* 8* CREATININE mg/dL 0.85 0.82 0.80 GLUCOSE mg/dL 137* 122* 138* CALCIUM mg/dL 9.2 9.0 8.9 Results from last 7 days Lab Units 07/02/23 0507 07/01/23 0505 06/30/23 1829 WBC AUTO 10*3/uL 3.3* 5.1 6.5 HEMOGLOBIN g/dL 10.4* 12.2* 13.0 HEMATOCRIT % 29.2* 34.1* 36.9* PLATELETS AUTO 10*3/uL 197 242 256 Assessment/Plan Acute hyponatremia 2/2 beer potomania +/- volume depletion from poor po intake 2. Failure to thrive 3. ETOH abuse 4. Severe protein calorie malnutrition 5. Failure to thrive 6. Fall, multiple 7. HTN essential Plan: -Na now at 127 -C/w FR: 1.2L -Will give 1 more L of NS to gauge response -Ur Na was 17 and could be suggestive of volume depletion vs liver innervated -Encourage 3 meals a day high in protein -Na rate of correction not to exceed >8mEq/L/day to prevent neurological sequelae, please notify nephrology if rate of rise is exceeding above parameters -PVR not done, likely would not be accurate -HCO3 better -Alcohol cessation education -All other care per primary team -Ok for discharge from renal standpoint for Na >125 -We will follow closely with you Thank you for the consult and the opportunity to participate in the care of this patient. Please do not hesitate to contact us with any questions or concerns. Ophelia Ramos APRN, ANIMAL CONTROL SPECIALIST [facility], [facility] [phone] Associated attestation - Kennedi Pérez MD - 07/03/2023 9:59 PM EDT Seen and examined. Agree with above A and P. Hyponatremia +ve, hypovolemic. NS X 1 L today. Alcohol cessation counseling. Lowering PNB to 32 mg q 8 hours for 3 doses then discontinuing. Patient sleeping/snoring when I attempted to see him today Chart reviewed. I believe withdrawal symptoms are near resolution at this point. I did speak to Michael of case management via secure chat - she is working diligently on finding a alcohol rehab center for the patient to attend after discharge. PT/OT re-eval seems to indicate patient not in need for SNF for physical therapy, and he has been walking around the unit with cane per staff. So I revise my original reservation about him going to alcohol rehab directly. t seems unlikely that patient will be accepted directly over the weekend, and Thursday would be the earliest we would here from any facility. Signing off but please contact me over the weekend if I can be of any assistance. Images from the original note were not included. Occupational Therapy OCCUPATIONAL THERAPY [facility] Treatment Note Name/MRN: Woody Ni ([id number]) Date of : 1960 Age: 63 y.o. Room/Bed: [facility] A Visit #: 1 out of 4 of visits Discharge Recommendation: 24 hr care with Home OT Equipment Needed: none Prior Level of Function ADL Assistance: Independent Ambulation Assistance: Independent Device(s) used: cane Transfer Assistance: Independent Assessment Pt is making good progress with OT for ADLS and transfers with pt overall at a sup to CGA level with slight limitations from decrease bal and strength. Pt reports having very little assistance at home due to working 2 jobs. OT is recommending pt to discharge to home with 24 hr care and home health OT but if that is not available then would recommend SNF level therapy. Subjective Pt supine in bed and agreeable to OT tx. Pain: Pt reports generalized pain but does not rate Medical Precautions: No active isolations Proper PPE donned/doffed in accordance with facility standards. Fall Risk: Maurice Fall Risk Score: 85 (High Risk) Precautions/Restrictions: Seizure Precautions Family/Caregiver Present: none Objective ADLs Grooming: Modified Independent LE Dressing: SBA Toileting: Supervision Pt training for ADLs while seated with intermittent standing with figure 4 tech for initiation and then standing to complete LB with SBA. Mod I with grooming tasks while standing at sink with setup. Toilet hygiene while seated with clothing mgmt in standing. Bed Mobility Supine to sit: Min Assist Pt completed bed mob with min A with pt needing to pull up on therapist for trunk control. Pt left seated in recliner at end of session. Transfers/Mobility Sit to stand: Contact Guard Stand to sit: SBA Toilet: Contact Guard Sitting balance: Modified Independent Standing balance: Supervision Functional mobility: SBA Pt training for transfers to FWW with min cues for hand placement and fair teachback by pt, no true LOB noted but slightly unsteady, denies dizziness. Use of grab bars with toilet transfers. Pt completed functional mob in room using FWW with SBA with no true LOB noted. Device(s) used: front wheeled walker, hospital bed, and grab bars Cognition - WFL Plan Continue acute OT per plan of care. Safety/Education Safety Safety Devices in place: All fall risk precautions in place, call light within reach, left in chair, gait belt, patient at risk for falls, nurse notified, and no alarms engaged upon entry Restraints: No Education Education Given To: patient Education Provided: ADL Adaptive Strategies, Transfer Training, and Fall Prevention Education Education Method: Demonstration, Verbal, and Teach Back Barriers to Learning: Cognition Education Outcome: Verbalized Understanding, Demonstrated Understanding, and Continued Education Needed AM-PAC AM-PAC Inpatient Daily Activity Raw Score: 21 ADL Inpatient CMS G-Code Modifier: CJ Goals Patient Stated Goal: to go to alcohol rehab Encounter Problems Encounter Problems (Active) Balance Patient will maintain dynamic standing balance for 4 minutes with modified independence in order to demonstrate decreased risk of falling. (Progressing) Start: 07/01/23 Expected End: 07/05/23 Dressings Lower Extremities Patient will perform full body ADLs with Mod I (Progressing) Start: 07/01/23 Expected End: 07/05/23 Mobility Pt will perform functional mobility and transfers with LRAD and Mod I (Progressing) Start: 07/01/23 Expected End: 07/05/23 Toileting Patient will complete toileting tasks at standard toilet with modified independence. (Progressing) Start: 07/01/23 Expected End: 07/05/23 Therapy Time Individual Co-treatment Time In 810 Time Out 0827 Minutes 16 Timed Code Treatment Minutes: 16 Minutes (1 ADL) BERTA Ramirez Department of Family Medicine Daily Progress Note Subjective Chief Complaint (required for billing): Hyponatremia Pt resting this am still waiting on an accepting facility ROS: Review of Systems Objective BP (!) 146/80 Pulse 102 Temp 36.7 C (98.1 F) (Temporal) Resp 19 SpO2 99% PF (!) 16 L/min Physical Exam Pt is alert and oriented x 3 Heent wnl Heart regular Lungs ctab Abd benign Ext no edema Labs Notable Labs: Current Medications Medication orders reviewed, see MAR Assessment/Plan Principal Problem: Hyponatremia Active Problems: Severe malnutrition (CMS/HCC) (HCC) Severe alcohol use disorder (HCC) Recurrent falls Alcoholism Frequent falls Chronic back pain Hyponatremia Cirrhoisis HTN Plan Awaiting calls back from rehab centers PT now recommending snf FEN:Adult diet Regular GI prophylaxis: PPI ordered DVT prophylaxis: lovenox # Anticipated Discharge - Date - 10-20 d - Location - Skilled Facility - Pending the following - auth KACIE BENZ DO 07/03/23 9:24 AM [facility] Progress Note Subjective/ 63 y.o. year old male who we are seeing in consultation for hyponatremia. NAEON BP is high Resting in bed asleep No issues with UOP No other new issues at this time ROS done and negative unless mentioned as above No change in PFSH All data labs/interval notes and overnight issues are reviewed Objective/ Vitals: 07/01/23199907/01/23 2317 07/02/23 0258 07/02/23 0821 BP: 119/80 (!) 146/91 (!) 148/86 135/85 BP Location: Left arm Left arm Patient Position: Lying Lying Pulse: 92 97 97 99 Resp: 18 16 18 18 Temp: 36.7 C (98.1 F) 36.7 C (98.1 F) 36.7 C (98 F) TempSrc: Oral Oral Tympanic SpO2: 98% 97% 100% PF: No intake or output data in the 24 hours ending 07/02/23 1035 amLODIPine, 2.5 mg, Oral, Daily dicyclomine, 20 mg, Oral, TID AC enoxaparin, 40 mg, SubCUTAneous, Daily famotidine, 20 mg, Oral, BID folic acid, 1 mg, Oral, Daily influenza, 0.5 mL, IntraMUSCular, Prior to discharge ipratropium-albuterol, 3 mL, Nebulization, BID levothyroxine, 50 mcg, Oral, qAM AC losartan, 100 mg, Oral, Daily nicotine, 1 patch, TransDERmal, Daily PHENobarbital, 64.8 mg, Oral, Q4H potassium chloride, 10 mEq, Oral, Daily sodium chloride, 1 g, Oral, BID WC tamsulosin, 0.4 mg, Oral, Daily thiamine, 100 mg, Oral, Daily PRN medications: acetaminophen OR acetaminophen, fluticasone, LORazepam OR LORazepam OR LORazepam OR LORazepam OR LORazepam OR LORazepam OR LORazepam OR LORazepam, ondansetron ODT OR ondansetron, polyethylene glycol (PEG) 3350 Constitutional: Alert, awake, no apparent distress Eyes: No icterus, no pallor HEENT: no pallor/cyanosis or icterus Cardiovascular: S1, S2 without m/r/g Respiratory: CTA B without w/r/r GI: +bs, soft, nt : pascual -ve Ext: no LE edema Neck: supple, no thyroid enlargement, no JVD elevation Skin: warm, moist, no rashes Results from last 7 days Lab Units 07/02/23 0507 07/02/23 0108 07/01/23 1908 SODIUM mmol/L 127* 130* 128* POTASSIUM mmol/L 3.9 3.6 3.8 CHLORIDE mmol/L 100 101 99 CO2 mmol/L 23 23 22 BUN mg/dL 13 14 15 CREATININE mg/dL 0.97 0.92 1.06 GLUCOSE mg/dL 133* 102* 133* CALCIUM mg/dL 9.1 8.5 8.6 Results from last 7 days Lab Units 07/02/23 0507 07/01/23 0505 06/30/23 1829 WBC AUTO 10*3/uL 3.3* 5.1 6.5 HEMOGLOBIN g/dL 10.4* 12.2* 13.0 HEMATOCRIT % 29.2* 34.1* 36.9* PLATELETS AUTO 10*3/uL 197 242 256 Assessment/Plan Acute hyponatremia 2/2 beer potomania +/- volume depletion from poor po intake 2. Acute NAGMA, resolved 3. ETOH abuse 4. Severe protein calorie malnutrition 5. Failure to thrive 6. Fall, multiple 7. HTN essential Plan: -Na now at 127 -Tighten restriction: 1.2L since no longer a concern for overcorrection -Low threshold for more IVF is improvement is stalled -Encourage 3 meals a day high in protein -Na rate of correction not to exceed >8mEq/L/day to prevent neurological sequelae, please notify nephrology if rate of rise is exceeding above parameters -PVR not done -HCO3 better -Needs outpatient assistance with alcohol cessation, recommend addiction med consult -All other care per primary team -We will follow closely with you Thank you for the consult and the opportunity to participate in the care of this patient. Please do not hesitate to contact us with any questions or concerns. Ophelia Ramos APRN, ANIMAL CONTROL SPECIALIST [facility], [facility] [phone] Associated attestation - Kennedi Pérez MD - 07/02/2023 5:26 PM EDT I have reviewed the above assessment and plan with the [facility] [employer] [employer]. I agree with above note. Hyponatremia +, Na levels dropped slightly. Tighten FR. Increased protein in the diet recommended. Alcohol cessation counseling. Department of Family Medicine Daily Progress Note Subjective Chief Complaint (required for billing): Hyponatremia Pt doing ok today his sodium is coming up addiction med still feels that he needs snf for rehab and getting into addiction rehab outpt ROS: Review of Systems Objective BP 135/85 Pulse 99 Temp 36.7 C (98 F) (Tympanic) Resp 18 SpO2 100% PF (!) 16 L/min Physical Exam Pt is alert and oriented x 3 Heent wnl Heart regular Lungs ctab Abd benign Ext no edema Labs Notable Labs: Current Medications Medication orders reviewed, see MAR Assessment/Plan Principal Problem: Hyponatremia Active Problems: Severe malnutrition (CMS/HCC) (HCC) Severe alcohol use disorder (HCC) Recurrent falls Alcoholism Frequent falls Chronic back pain Hyponatremia Cirrhoisis HTN Plan Awaiting calls back from rehab centers FEN:Adult diet Regular GI prophylaxis: PPI ordered DVT prophylaxis: SCDs # Anticipated Discharge - Date 2 d - Location - addiction rehab - Pending the following - KACIE BENZ DO 07/02/23 9:37 AM Nutrition rescreen completed. Pt referred to RD for malnutrition and FTT. [facility] Respiratory Care Department Progress Note As part of the Respiratory Assessment Program (RAP), the following Respiratory Therapist evaluation has been completed, including a chart review and clinical/physical assessment. Respiratory Therapist RAP Evaluation Guideline Points 0 1 2 3 4 Points Strongly Consider History Factor No Pulmonary conditions Stable Pulmonary condition(s) Surgery or Intervention that may impact Pulmonary system (at risk) Surgery or Intervention that is impacting Pulmonary system Active Exacerbation of Pulmonary Condition 0 Respiratory Pattern Regular, RR= 12-18 TABOR or Increased RR= 19-24 Irregular, or RR= 25-30 SOB, talk in short sentences, or RR= 31-35 Severe SOB, accessory muscle use, one word answers, or RR>35 0 Aerosol Med(s), High Flow O2 Breath Sounds Clear Diminished in 1 lobe Diminished in ? 2 lobes Adventitious breath sounds Coarse crackles, Wheezes, or Diminished in >2 lobes 4 Aerosol Med(s), Bronchial Hygiene, Hyperinflation Cough & Sputum Strong cough, no secretion retention or production Weak cough, no secretion retention or production Weak cough, w/ production (less often than Q2hr), or secretion retention No cough, w/ secretion retention or production (less often than Q2hr) Significant secretion production (more often than Q2hr) or mucus plug 0 Aerosol Med(s), Bronchial Hygiene, Hyperinflation Level of Activity Ambulatory Ambulatory with Assist Up in chair or edge of bed (dangle) Non-ambulatory, bedridden with active ROM Completely paralyzed or without active ROM 1 Triage 5 0-2 Triage 4 3-5 Triage 3 6-10 Triage 2 11-14 Triage 1 ?15 Total 5 Triage Score = 4 TRIAGE SCORING - SUGGESTED FREQUENCIES Aerosol Therapy Bronchial Hygiene Hyperinflation Triage Score Q4h & PRN 1 Q4hWA (QID) & PRN 2 TID & PRN 3 BID & PRN 4 PRN 5 Therapy(s) Indicated Yes/No Aerosol Medication y Hyperinflation n Bronchial Hygiene n High Flow Oxygen n RT to enter/modify frequency of treatment order in EMR/EHR to match this RAP evaluation. Based on this RAP evaluation the following therapy is being initiated: DUONEB At the following frequency: BID Comments: Thank you for involving Respiratory in the care of this patient, Physical Therapy Facility/Department: [facility] Physical Therapy Initial Evaluation NAME: Woody Ni : 1960 Date of Service: 07/01/2023 Discharge Recommendations: Home with Home health PT, Home with assist PRN, Continue to assess pending progress PT Equipment Recommendations Equipment Needed: No Assessment Requires PT Follow-Up: Yes Assessment: Pt is a 63 y.o. male admitted 06/30 with frequent falls, wishing to detox from alcohol. Of note, pt was recently admitted for the same concerns but returned home from the SNF and continued to drink. Pt was previously independent with functional mobility with SPC, however, pt endorses frequent falls and forgets to use SPC. Pt is currently requiring SUP for bed mobility, CGA for functional transfers and ambulation with SPC vs FWW. Pt demos improved stability with FWW compared to SPC. Pt is currently limited by endurance, fatigue and is at an increased risk for falls. Pt will benefit from acute skilled PT to address current deficits. Recommend home with [facility] PT and PRN assist pending progress, however, pt endorses wanting to explore alcohol rehab at this time. Performance Deficits/Impairments: Decreased functional mobility , Decreased endurance, Decreased balance, Decreased strength Activity Tolerance Comment: Pt limited by endurance, fatigue Decision Making: Medium Complexity History: Pt admitted 06/30 with frequent falls, wishing to detox from alcohol. Of note, pt was recently admitted for the same concerns but returned home from the SNF and continued to drink. Exam: AM-PAC Clinical Presentation: Pt admitted 06/30 with frequent falls, wishing to detox from alcohol. Of note, pt was recently admitted for the same concerns but returned home from the SNF and continued to drink. Pt has significant past medical history as indicated impacting pt's current clinical presentation. Pt is currently SUP to CGA for functional mobility. Recommend home with [facility] PT and PRN assist pending progress. Barriers to Learning: None Barriers to Learning: None Activity Tolerance Activity Tolerance: Patient limited by fatigue, Patient limited by endurance Patient Diagnosis(es): The encounter diagnosis was Hyponatremia. 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 has a past surgical history that includes Back surgery; Laminectomy; [place] tooth extraction; lap,cholecystectomy (historical) (N/A, 01/05/2023); and Cholecystectomy. Restrictions Restrictions/Precautions Restrictions/Precautions: General Precautions, Fall Risk, Seizure (CIWA) Required Braces or Orthoses?: No Vision/Hearing Vision: Within Functional Limits Hearing: Functional/adequate for paticipation in therapy Cognition/Orientation Overall Cognitive Status: Exceptions Arousal/Alertness: Appropriate responses to stimuli Following Commands: Follows all commands without difficulty Attention Span: Appears intact Insights: Decreased awareness of deficits Cognition Comment: mild decreased safety awareness as pt reports not using SPC at home with frequent falls Overall Orientation Status: Within Functional Limits Subjective General Chart Reviewed: Yes Patient Assessed for Rehabilitation Services: Yes Additional Pertinent Hx: Pt admitted 06/30 with frequent falls, wishing to detox from alcohol. Of note, pt was recently admitted for the same concerns but returned home from the SNF and continued to drink. Family / Caregiver Present: No Follows Commands: Within Functional Limits General Comment Comments: Per RN okay for therapy Subjective Subjective: Pt pleasant and agreeable to therapy session Patient Stated Goal: Pt did not state Pain Assessment Pain Assessment: No/denies pain Social/Functional History Social/Functional History Lives With: Spouse Type of Home: House Home Layout: Two level, Performs ADL's on one level Home Access: Stairs to enter with rails Entrance Stairs - Number of Steps: 8 Bathroom Shower/Tub: Walk-in shower Bathroom Toilet: Standard Home Equipment: Cane, Rolling walker ADL Assistance: Independent Ambulation Assistance: Independent With device?: Yes (SPC) Device: straight cane Transfer Assistance: Independent Objective Observation/Palpation Posture: Good Observation: PIV being disconnected by RN upon therapist arrival Gross Assessment: Yes Strength: Generally decreased, functional Bed mobility Supine to Sit: Unable to assess Sit to Supine: Supervision Scooting: Supervision Comment: Pt sitting EOB at start of session. Pt returns to supine at SUP, no significant difficulty noted. Pt scoots to position in bed at SUP. Transfers Sit to Stand: Contact guard assistance Stand to sit: Contact guard assistance Comment: Pt completes x2 sit<->stand transfers throughout session. x1 from EOB to SPC, x1 from toilet to SPC. Pt completes at CGA to monitor stability, no signficant LOB. Pt denies dizziness with position change. Ambulation Ambulation: Yes Ambulation 1 Surface 1: Level tile Device 1: Single point cane Assistance 1: Contact guard Quality of Gait 1: No LOB, reciprocal stepping, shuffling, postural sway, path deviations Quality of Gait Comment 1: Pt demos short, reciprocal gait pattern, appropriate SPC navigation, general instability without significant LOB Distance (ft) 1: ~75 feet x2 Comments 1: CGA to monitor stability due to lateral sway. Ambulation 2 Surface 2: Level tile Device 2: Rolling walker Assistance 2: Contact guard Quality of Gait 2: No LOB, reciprocal stepping, slow hedie Quality of Gait Comment 2: Pt demos short, reciprocal gait pattern, mild forward flexed posture Distance (ft) 2: ~50 feet Comments 2: Pt requires cues for upright posture, maintain JM within FWW with fair carryover of cues. Pt demos improvement in stability with FWW compared to SPC. Recommended use of FWW compared to SPC with pt verbalizing understanding. Balance Posture: Good Sitting - Static: Good Sitting - Dynamic: Good Standing - Static: Fair Standing - Dynamic: Fair Plan # of visits: 5 Current Treatment Recommendations: Strengthening, Balance Training, Functional Mobility Training, Transfer Training, Endurance Training, Gait Training, Stair training, Neuromuscular Re-education, Pain Management, Home Exercise Program, Safety Education & Training, Patient/Caregiver Education & Training, Equipment Evaluation, Education, & procurement, Positioning Plan Comment: Goals and plan of care established in collaboration with pt Safety Safety Devices Safety Devices in Place: Yes Type of Devices: All fall risk precautions in place, Call light within reach, Gait belt, Patient at risk for falls, Left in bed, Nurse notified, No alarms engaged upon entry into room AM-PAC Score AM-PAC Inpatient Mobility Raw Score (No Stairs) : 15 Goals Encounter Problems Encounter Problems (Active) Exercise Patient will complete lower extremity exercises for 1-2 sets / 5-10 reps in order to improve strength and activity tolerance for mobility. Start: 07/01/23 Expected End: 07/08/23 Mobility Patient will ambulate 100 feet with modified independence and rolling walker in order to improve safety and independence with mobility. Start: 07/01/23 Expected End: 07/08/23 Patient will ascend and descend 8 stairs with one railing and SBA in order to safely negotiate home. Start: 07/01/23 Expected End: 07/08/23 Transfers Patient will perform bed mobility with modified independence in order to improve independence and prepare for out of bed mobility. Start: 07/01/23 Expected End: 07/08/23 Patient will complete functional transfer with least restrictive device with modified independence in order to prepare for ambulation. Start: 07/01/23 Expected End: 07/08/23 Education Education Given To: Patient Education Provided: Goals, Energy Conservation, PT Role, General Safety, Gait Training, Plan of Care, Discharge recommendations, Functional Mobility Training, Equipment, Transfer Training, Precautions, Injury Prevention Education Method: Demonstration, Verbal Barriers to Learning: None Education Outcome: Verbalized understanding, Demonstrated understanding, Continued education needed Therapy Time Individual Co-treatment Time In 900 (co-eval with OT) Time Out 0916 Minutes 15 Munira Ramey PT Images from the original note were not included. Occupational Therapy OCCUPATIONAL THERAPY [facility] Initial Evaluation Name/MRN: Woody Ni ([id number]) Evaluation Date: 07/01/2023 Date of : 1960 Admission Date: 06/30/2023 5:32 PM Age: 63 y.o. Room/Bed: 11/20 Discharge Recommendation: Home with Home OT Equipment Needed: none Assessment IMPRESSION: Pt admitted to ED on 06/30 with a fall and wishing to detox from alcohol. Of note, pt was recently admitted for the same concerns but returned home from the SNF and continued to drink. Prior to admission, pt lived with his significant other and performed ADLs independently. He used a cane for mobility. Upon eval, pt required supervision for bed mobility, CGA for transfers, SBA-CGA for mobility with FWW and cane respectively, and SBA for LB ADLs. Pt is slightly below baseline and would benefit from skilled OT to improve safety and independence. Pt would benefit from alcohol rehab and reports that he wishes to explore this option. At this time, pt will not qualify for SNF placement. Recommend [facility] upon DC from this facility or alcohol rehab. Performance Deficits /Impairments: Decreased Functional Mobility, Decreased ADL status, Decreased Endurance, and Decreased Balance Prognosis: Good Decision Making: Medium Complexity Subjective Pt sitting at EOB, pleasant and cooperative, needing to use the bathroom. Pain: Pt denies any current pain. 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 Nausea and vomiting 12/22/22-12/26/22 admitted at [facility] Pain management Sleep apnea noncompliant with device Past Surgical History: Past Surgical History: Procedure Laterality Date BACK SURGERY x 2 CHOLECYSTECTOMY LAMINECTOMY LAP,CHOLECYSTECTOMY (HISTORICAL) N/A 01/05/2023 WISDOM TOOTH EXTRACTION Admission Diagnosis: Patient Active Problem List Diagnosis Date Noted Alcohol abuse 06/22/2023 Severe malnutrition (CMS/HCC) (HCC) 04/11/2023 Severe alcohol use disorder (HCC) 04/02/2023 Alcohol withdrawal syndrome without complication (HCC) 04/02/2023 Gallbladder sludge 01/05/2023 RUQ pain 01/05/2023 Acute on chronic cholecystitis 01/05/2023 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) 01/05/2023 Acute kidney injury (CMS/HCC) (HCC) 12/22/2022 [place] (acute kidney injury) (CMS/HCC) (HCC) 12/22/2022 Chronic pain syndrome 11/06/2022 Complication of surgical procedure 11/06/2022 Intercostal pain 11/06/2022 Low back pain 11/06/2022 Mild recurrent major depression (HCC) 11/06/2022 Myalgia 11/06/2022 Right hip pain 11/06/2022 Shoulder joint pain 11/06/2022 Intractable nausea and vomiting 06/05/2022 Hypovolemia 06/04/2022 Chronic alcoholic hepatitis 06/04/2022 Postural dizziness with presyncope 06/04/2022 Hyponatremia 06/03/2022 Osteoarthritis of spine with radiculopathy, lumbar region 03/12/2018 Essential hypertension 08/26/2017 Diabetes (HCC) 08/26/2017 Cirrhosis (HCC) 08/26/2017 Asthma 08/26/2017 Thyroid disease 08/26/2017 SHAYLA (obstructive sleep apnea) 08/26/2017 HLD (hyperlipidemia) 08/26/2017 Hepatitis 08/26/2017 Lumbar stenosis 06/10/2017 Medical Precautions: No active isolations Proper PPE donned/doffed in accordance with facility standards. Fall Risk: Maurice Fall Risk Score: 50 (High Risk) Precautions/Restrictions: Seizure Precautions Family/Caregiver Present: none Overall Cognitive Status: Decreased safety. Pt reports that he falls because he does not use his cane. Overall Orientation Status: Oriented x4 Social/Functional History Patient admitted from home. Lives With: Spouse Type of Home: single family home Home Layout: Two Level Home and ADLs on Main Level Home Access: Stairs to Enter without Rails (# of stairs: 8) Bathroom Shower/Tub: Walk in Shower Toilet: Standard Home Equipment: cane Homemaking Responsibilities: Needs Assist Receives Help From: Spouse Active Environmental Field Office Manager: N/A Prior Level of Function ADL Assistance: Independent Ambulation Assistance: Independent Device(s) used: cane Transfer Assistance: Independent Objective ADLs LE Dressing: SBA Toileting: SBA Pt able to perform bathroom level toileting with SBA when performing hygiene after a BM. He doffed his brief and sweat pants and was able to don a new brief, socks, shoes and hospital pants while sitting on the toilet with SBA. Pt then stood at the sink with SBA to wash his hands. Upper Extremity Assessment AROM: WFL PROM: WFL Strength: WFL Coordination: WFL Tone: WFL Sensation: WFL Vision: wears glasses at all times and and are NOT being used during the eval Hearing: normal Hand dominance: N/A Bed Mobility: Sit to supine: Supervision Scooting: Supervision Pt sitting at EOB at beginning of session. He was able to scoot and return to supine with supervision. Denied dizziness. Transfers/Functional Mobility Sit to stand: Contact Guard Stand to sit: Contact Guard Toilet: Contact Guard Sitting balance: Supervision Standing balance: SBA Functional mobility: SBA, Contact Guard Pt able to stand from EOB to the cane with CGA. He transferred on and off the toilet using the R grab bar with CGA. He was able to sit at EOB with supervision and required SBA for standing at the sink to wash hands. He then walked a long functional distance in the eubanks. He initially required CGA using the cane. No overt LOB noted, but pt walked with a lateral sway. Provided a FWW and pt was able to progress to SBA. Less sway noted. Pt admits that he does not always use his cane at home and that likely attributes to his falls. Recommending the FWW to improve balance and safety. Device(s) used: front wheeled walker and cane AM-PAC AM-PAC Inpatient Daily Activity Raw Score: 21 ADL Inpatient CMS G-Code Modifier: CJ Plan Pt would benefit from skilled acute OT services to address Strengthening, Balance Training, Functional Mobility Training, Endurance Training, Safety Education and Training, Patient/Caregiver Training, Equipment Evaluation/Education, Self-Care/ADL Training, and Home Management Training. Frequency: 4 of visits during current hospital admission or until additional recommendations are made Barriers: Limited safety awareness and ETOH use disorder Prognosis: good Safety/Education Safety Safety Devices in place: All fall risk precautions in place, call light within reach, left in bed, gait belt, patient at risk for falls, nurse notified, and no alarms engaged upon entry Restraints: N/A Education Education Given To: patient Education Provided: OT Role, Plan of Care, Equipment, and Discharge Recommendations Education Method: Verbal Barriers to Learning: None Education Outcome: Verbalized Understanding and Continued Education Needed Goals Patient Stated Goal: to go to alcohol rehab Encounter Problems Encounter Problems (Active) Balance Patient will maintain dynamic standing balance for 4 minutes with modified independence in order to demonstrate decreased risk of falling. Start: 07/01/23 Expected End: 07/05/23 Dressings Lower Extremities Patient will perform full body ADLs with Mod I Start: 07/01/23 Expected End: 07/05/23 Mobility Pt will perform functional mobility and transfers with LRAD and Mod I Start: 07/01/23 Expected End: 07/05/23 Toileting Patient will complete toileting tasks at standard toilet with modified independence. Start: 07/01/23 Expected End: 07/05/23 Therapy Time Individual Co-treatment Time In 900 Time Out 0916 Minutes 15 Unique Ortiz OT Patient's Occupational Therapy Plan of Care supervision is transferred to a [facility] Occupational Therapist. Goals and/or treatment plan was established in collaboration with patient/family/other representatives. documented in this encounter [facility] 07-05-2023 Hospital course Narrative Discharge Summary Woody Ni : 1960 ADMIT DATE: 06/30/2023 DISCHARGE DATE: 07/05/2023 PRIMARY CARE PHYSICIAN: Jani Quezdaa VISIT STATUS: Admission CODE STATUS: Prior DISCHARGE DIAGNOSES: Principal Problem: Hyponatremia Active Problems: Severe malnutrition (CMS/HCC) (HCC) Severe alcohol use disorder (HCC) Recurrent falls HOSPITAL COURSE: Woody Ni is a 63 y.o. who presents to the emergency department with chief complaint of requesting detox and placement at rehab. He was just admitted for alcohol detox and then was placed at rehab because he was weak and unable to care for himself or walk. He has been drinking since leaving the rehab facility brought in by family now to try to again get admitted is having frequent falls at home and is likely a danger to himself. He apparently signed out AMA from [facility] and then started drinking again. He states they wouldn't give him phenobarb there his workup today shows a sodium of 119 he is being admitted for further treatment. He was seen by addiction med and they felt he needed a SNF prior to rehab. He was also seen by nephrol due to his low Na . He was doing better overall but case mgmt was having a hard time finding somewhere for him to go the patient got tired of waiting and signed himself out AMA SIGNIFICANT DIAGNOSTIC STUDIES: Labs CONSULTANTS: Nephro and addiction med RECOMMENDED NEXT STEPS: home DISCHARGE MEDICATIONS: Medication List ASK your doctor about these medications albuterol 108 (90 Base) MCG/ACT inhaler alendronate 70 MG tablet Commonly known as: Fosamax amLODIPine 2.5 MG tablet Commonly known as: Norvasc calcium carbonate 500 MG chewable tablet Commonly known as: Tums Chew 1 tablet (500 mg) daily. Do not start before February 15, 2023. cyanocobalamin 1000 MCG/ML injection Commonly known as: Vitamin B-12 dicyclomine 20 MG tablet Commonly known as: Bentyl Take 1 tablet (20 mg) by mouth in the morning and 1 tablet (20 mg) at noon and 1 tablet (20 mg) in the evening. Take before meals. Alana-C tablet famotidine 20 MG tablet Commonly known as: Pepcid Take 1 tablet (20 mg) by mouth 2 times daily. fluticasone 50 MCG/ACT nasal spray Commonly known as: Flonase folic acid 1 MG tablet Commonly known as: Folvite Take 1 tablet (1 mg) by mouth daily. Do not start before April 16, 2023. ipratropium-albuterol 0.5-2.5 mg/3 mL nebulizer solution Commonly known as: Duo-Neb ketoconazole 2 % shampoo Commonly known as: NIZOral levothyroxine 50 MCG tablet Commonly known as: Synthroid, Levoxyl TAKE 1 TABLET BY MOUTH DAILY losartan 100 MG tablet Commonly known as: Cozaar Take 1 tablet (100 mg) by mouth daily. Do not start before February 15, 2023. niacin 100 MG tablet nitroglycerin 0.4 MG SL tablet Commonly known as: Nitrostat PHENobarbital 64.8 MG tablet Commonly known as: Luminal Take 1 tablet (64.8 mg) by mouth every 4 hours. potassium chloride ER 10 MEQ ER capsule Commonly known as: Micro-K sodium chloride 1 g tablet Take 1 tablet (1 g) by mouth in the morning and 1 tablet (1 g) in the evening. Take with meals. tamsulosin 0.4 MG 24 hr capsule Commonly known as: Flomax thiamine 100 MG tablet Commonly known as: Vitamin B-1 Take 1 tablet (100 mg) by mouth daily. Do not start before April 16, 2023. DIET: No diet orders on file ACTIVITY: No restriction. COMPLEXITY OF FOLLOW UP: [] Moderate Complexity: follow up within 7-14 calendar days (39738) [] Severe Complexity: follow up within 7 calendar days (11276) FOLLOW UP TESTING, PENDING RESULTS OR REFERRALS AT TRANSITIONAL CARE VISIT: [] Yes [] No PENDING STUDIES: none DISPOSITION: Home FACILITY/HOME CARE AGENCY NAME: Follow up with Jani Quezada [address] [facility] [facility] [id number] In 2 days INSTRUCTIONS TO MA/SW: Please call patient on day after discharge (must document patient contacted within 2 business days of discharge). FOLLOW UP QUESTIONS FOR MA/SW: 1. Did you get medications filled and taking them as instructed from discharge? 2. Are you following your discharge instructions from your hospital stay? 3. Please confirm patient is scheduled for a follow up appointment within the above time frame. DISCHARGE TIME: < 30 minutes SIGNED: KACIE BENZ DO 07/05/2023, 8:46 PM documented in this encounter [facility] 07-04-2023 Note Formatting of this n ote might be different from the original. Did provide patient with snf list with counseling programs available to choose for post discharge therapy. [facility] 07-04-2023 Note Formatting of this n ote might be different from the original. Did provide patient with snf list with counseling programs available to choose for post discharge therapy. [facility] 07-04-2023 Miscellaneous Notes Did provide patient with snf list with counseling programs available to choose for post discharge therapy. S/W, follow up PT this afternoon is now recommending SNF. I did update TCC of this. I am still awaiting responses back from Treatment Centers. SNFs with a Drug Counseling program would be beneficial for patient. I will continue with search for Treatment Center while SNF being pursued. S/W, follow up I did visit patient in room to discuss planning and updates. I did update the patient on status of attempting to find a Residential Treatment Center. I did also discuss his therapy evaluations recommending [facility]/24 hrs supervision. The patient asked " they think I get around ok?" " I cant do anything." He does acknowledge however that he was able to walk today, groom at the sink, and can do the dishes at home but will need to sit as his legs get weak. I did call patient Significant Other Christie with the patient via speaker phone in his room ( noone else in room) I did update Christie on Treatment Centers and recommendations from therapy. Christie did state that functionally, the patient can ambulate at home. The patient noted he has not been able to take a shower for months. Christie noted the patient will not get in the shower as a knob is broken to the water. They use a knife to to wrench the water on and the patient is afraid the knife will fall on his foot. Christie noted his limiting factor at home is his ETOH use, which causes him to have falls. Await responses from [facility] and [facility]. S/W, follow up I did update Chemical Dependency Physician as to therapy recommendations. OT stating today HHC and 24 hrs supervision, if no 24 hrs supervision then SNF. I did speak with OT, patient not in need of Nursing facility for therapy, but basically 24 hrs supervision. 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 [facility]: No [place] Medicare, PHP with [facility] [place]: No response, placed another call [facility]: No Medicare 1st Step: [facility] [place]: LVM : No bed, maybe an opening next week, faxing info over to [phone]. S/W, follow up Que Maldonado from [facility] did respond and stated they do have open Residential beds. Que did ask for patient clinical info. I did email Que the info this AM. I did include patient therapy evals to show patient is ambulating and recommendation is for HHC. Await clinical review. S/W, follow up Calls placed to the following Treatment Centers: [facility]: Message left for Hafsa Perez ) [facility] [place]: [phone] [facility]: No male beds at this time [facility] [place]: [phone] Await calls back Care Managment Initial Assessment Date: 07/01/2023 Patient Name: Woody Ni : 1960 Patient Information Source of Information: Patient Cognition/Language: WFL - Within Functional Limits Permission given to speak with patient underwriting account representative/caregiver as indicated: Yes Confirmation of Payer with patient/family: Yes Payer Name: [place]/ Medicaid secondary [place]: Yes (Is not Active with [facility]) Confirmation of Primary Care Physician: Confirmed PCP Name: Dr. Quezada Seen in last 2 years?: Yes Primary Caregiver: Spouse/significant other (Christie Carl) If assistance needed, confirmed caregiver ready, willing and able to care for patient at discharge: Yes Confirmed with: Patient Living Arrangements Current Residence: House Number of Floors 2 Number of Entry Steps: 1 Bed/Bath Levels: Both first floor Facility: Facility Name: Plan to Return: Lives with: Spouse/significant other Support Systems: Spouse/significant other Activities of Daily Living Ambulation: Independent Bathing/Dressing: Assistance Elimination/Continence/Toileting: Independent Feeding: Independent Who Assists with Activities of Daily Living: Dennis Rosales Instrumental Activities of Daily Living Prescription Coverage: Yes Pharmacy Used: [facility] Medication Management: Independent (christie will assist if needed) Transportation/Shopping: Assistance Provider Transportation/Shopping Assistance Provider Name: Christie Transportation Mode: Car Needs Assistance with Transportation at Discharge: No Meal Preparation: Assistance Provider Meal Prep Assistance Provider Name: Christie Laundry/Cleaning: Assistance Provider Laundry/Cleaning Assistance Provider Name: Christie Finances/Bill Paying: Assistance Provider Finances/Bill Payer Assistance Provider Name: Christie Communication: Independent Types of Care Services/Equipment Utilized Care Services: Dialysis Type: Durable Medical Equipment: Walker, Cane, Wheelchair (standard or power) (No home O2, daughter currently has his tub bench) Patient's Goal/Discharge Plan Patient expects to be discharged to: Residential Treatment center Discharge Planning Actions: Continue to follow (Residential Treatment center) Patient's Choice Rights and [employer] and Collaborative Relationships Disclosed as Indicated for Post-Acute Care: Yes Interdisciplinary Team Engagement: Addiction Medicine, PT/OT Social Work Referral for: Community Resources, Other (Comment) (ETOH resources) Additional Information: Patient in from home with falls and ETOH intoxication, asking for Detox and Rehab. Patient reports PCP sent him in for evaluation I did visit patient in his ED room to assess. Patient AOX3, no signs of intoxication now. The patient resides with his Girlfriend of 26 years Kingsley. They reside in a 2SH with 1SE. The patient reports he lives on the lower level only, bed and bath on this floor. The patient has a walker, cane and wheelchair. He does not have home O2. He reports no outside services coming in to the home. He sees Dr. Quezada and uses the [facility] in [place] as his pharmacy. He is a [place] but is not [facility] the [facility]. The patient reports that his Significant Other Kingsley ( 26 yrs together) does the cleaning, cooking and finances. He notes she works two jobs. The patient is on Disability from a back injury suffered on the job ( back fractures). Sociall Security is approx $1100 month[address] patient [address] not drive. The patient does admit to drinking 24 beers a day. He has been drinking since he was 14 yrs old. He has gone through detox one time and was Sober for 27 days after. He notes he recently was sent to [facility] for some short term rehab. Chart review reveals he was just sent to the facility on 06/26. He notes he left the facility as they ran out of his Phenobarbitol. He was sent to the facility skilled under his [place] insurance. The patient has been seen again by therapy and HHC has been recommended. The patient has voiced that he desires Residential Treatment for his ETOH. S/W will work to see if patient can get into a facility from here. ELL Murray documented in this encounter [facility] 07-03-2023 Note Formatting of this n ote might be different from the original. S/W, follow up PT this afternoon is now recommending SNF. I did update TCC of this. I am still awaiting responses back from Treatment Centers. SNFs with a Drug Counseling program would be beneficial for patient. I will continue with search for Treatment Center while SNF being pursued. [facility] 07-03-2023 Note Formatting of this n ote might be different from the original. S/W, follow up PT this afternoon is now recommending SNF. I did update TCC of this. I am still awaiting responses back from Treatment Centers. SNFs with a Drug Counseling program would be beneficial for patient. I will continue with search for Treatment Center while SNF being pursued. [facility] 07-03-2023 Note Formatting of this n ote might be different from the original. S/W, follow up I did visit patient in room to discuss planning and updates. I did update the patient on status of attempting to find a Residential Treatment Center. I did also discuss his therapy evaluations recommending [facility]/24 hrs supervision. The patient asked " they think I get around ok?" " I cant do anything." He does acknowledge however that he was able to walk today, groom at the sink, and can do the dishes at home but will need to sit as his legs get weak. I did call patient Significant Other Christie with the patient via speaker phone in his room ( noone else in room) I did update Christie on Treatment Centers and recommendations from therapy. Christie did state that functionally, the patient can ambulate at home. The patient noted he has not been able to take a shower for months. Christie noted the patient will not get in the shower as a knob is broken to the water. They use a knife to to wrench the water on and the patient is afraid the knife will fall on his foot. Christie noted his limiting factor at home is his ETOH use, which causes him to have falls. Await responses from [facility], [facility] and [facility]. [facility] 07-03-2023 Note Formatting of this n ote might be different from the original. S/W, follow up I did visit patient in room to discuss planning and updates. I did update the patient on status of attempting to find a Residential Treatment Center. I did also discuss his therapy evaluations recommending [facility]/24 hrs supervision. The patient asked " they think I get around ok?" " I cant do anything." He does acknowledge however that he was able to walk today, groom at the sink, and can do the dishes at home but will need to sit as his legs get weak. I did call patient Significant Other Christie with the patient via speaker phone in his room ( noone else in room) I did update Christie on Treatment Centers and recommendations from therapy. Christie did state that functionally, the patient can ambulate at home. The patient noted he has not been able to take a shower for months. Christie noted the patient will not get in the shower as a knob is broken to the water. They use a knife to to wrench the water on and the patient is afraid the knife will fall on his foot. Christie noted his limiting factor at home is his ETOH use, which causes him to have falls. Await responses from , y and [facility]. [facility] 07-03-2023 Note Formatting of this n ote might be different from the original. S/W, follow up I did update Chemical Dependency Physician as to therapy recommendations. OT stating today HHC and 24 hrs supervision, if no 24 hrs supervision then SNF. I did speak with OT, patient not in need of Nursing facility for therapy, but basically 24 hrs supervision. 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 [facility]: No [place] Medicare, PHP with [facility] : No response, placed another call [facility]: No Medicare 1st Step: [facility]: [facility] : No bed, maybe an opening next week, faxing info over to [phone]. [facility] 07-03-2023 Note Formatting of this n ote might be different from the original. S/W, follow up I did update Chemical Dependency Physician as to therapy recommendations. OT stating today HHC and 24 hrs supervision, if no 24 hrs supervision then SNF. I did speak with OT, patient not in need of Nursing facility for therapy, but basically 24 hrs supervision. 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 [facility]: No [place] Medicare, PHP with [facility] [place]: No response, placed another call [place]: No Medicare 1st Step: [facility]: [facility] : No bed, maybe an opening next week, faxing info over to [phone]. [facility] 07-03-2023 Note Formatting of this n ote might be different from the original. S/W, follow up Que Okeefe from [facility] did respond and stated they do have open Residential beds. Que did ask for patient clinical info. I did email Que the info this AM. I did include patient therapy evals to show patient is ambulating and recommendation is for HHC. Await clinical review. [facility] 07-03-2023 Note Formatting of this n ote might be different from the original. S/W, follow up Que Okeefe from [facility] did respond and stated they do have open Residential beds. Que did ask for patient clinical info. I did email Que the info this AM. I did include patient therapy evals to show patient is ambulating and recommendation is for [facility]. Await clinical review. [facility] 07-02-2023 Note Formatting of this n ote might be different from the original. S/W, follow up Calls placed to the following Treatment Centers: [facility]: Message left for Hafsa Perez ) [facility] [place]: [phone] [facility]: No male beds at this time [facility] [place]: [phone] Await calls back [facility] 07-02-2023 Note Formatting of this n ote might be different from the original. S/W, follow up Calls placed to the following Treatment Centers: [facility]: Message left for Hafsa Perez ) [place]: [phone] [facility]: No male beds at this time [facility] [place]: [phone] Await calls back [facility] 07-01-2023 Consult note Associated Order (s): IP CONSULT TO ADDICTION MEDICINE Images from the original note were not included. ADDICTION MEDICINE CONSULTATION H&P Patient: Woody Ni Admit Date: 06/30/2023 Primary Care Physician: Jani Quezada Reason for Consultation: "etoh abuse." HISTORY OF PRESENT ILLNESS Chief Complaint Patient presents with Fall Woody Ni is a 63 y.o. year old obese, white male with a PMH of DM, Hep C, cirrhosis, hypothyroidism, gout, chronic back pain, SHAYLA, depression, previous history of prescription opioid use (last rx filled for 30 days on 03/12/23, oxycodone 10 mg tabs, #120) that was admitted to assist with placement due to recurrent falls, generalized weakness, and an ability to take care of himself. This is occurring in the context of alcoholism. He was just admitted at [facility] for the same reasons, from 06/21/23 - 06/26/23. He was seen by my colleague and detoxed from alcohol with a phenobarbital taper. 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 He was discharged directly to [facility] for assisted due to generalized weakness, ambulation issues, etc. He was having frequent falls at home prior to that admission. Unfortunately, it seems he left AMA from that facility within a day or so and resumed drinking immediately. It seems his family brought him back to the ED. Woody Ni states that he is drinking daily, but denies any other drug use. NA 119 on admission and likely due to alcohol. Nephrology has been consulted. Of note, patient had liver biopsy while admitted at [facility] in 12/2022 and findings consistent with liver cirrhosis. Patient was receiving opioids for chronic pain from a pain management facility but around February 2023 he was dismissed from that program due to using alcohol while receiving opioids. He no longer receives opioids for pain, and it seems his alcohol use has escalated to compensate for a lack of narcotics. He has now been admitted to a hospital at least 3 times since then for the same issues. He has never pursued professional chemical dependency treatment after any of those admissions. On admission, a urine drug screen was positive for barbiturates, and a serum alcohol level was 270 on 06/30/23 @ 1829. SUBSTANCE USE HISTORY Brief Substance Use Narrative Patient reports that he for started drinking alcohol when he was 16 years old. 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 Patient denies any history withdrawal seizures, or DTs. Patient does report history of falls while intoxicated including those with head injury. He has also been diagnosed with numerous biopsychosocial problems related to alcoholism including liver cirrhosis, recurrent falls, etc... Patient is currently drinking to the point of intoxication, blackouts, and vomiting. Patient denies any history of MAT for substance use disorder, engagement in IOP or AA. He did receive chronic narcotic therapy for back issues for years, but did continue drinking while receiving those narcotics and was dismissed from that clinic around 02/2023. Otherwise, he denies abusing opioids or any other drugs. Current Substance Use Alcohol: about a case, 24 cans of 12 oz beer, daily. Amphetamines: denies. Benzos: denies. Cocaine: denies. Hallucinogens: denies. Marijuana: denies, but has admitted in the past. Nicotine: daily. Opioids: formerly prescribed narcotics, not since February 2023. Treatment History Inpatient Rehab: denies. Chem Dep IOP: denies. Detoxifications: several at [facility]. 12 Step Meetings: denies. Medication Assisted Treatment: denies. Consequences [] IVDA. [x] Blackouts related to substance use. [] History of withdrawal seizures. [] History of delirium tremens. [] History of overdoses. [] Legal consequences of substance use. Substance Use Disorder Criteria 2-3 = mild; 4-5 = moderate; 6 or >6 = severe substance use disorder [x] Taking substance in larger amounts and/or for longer than intended. [x] Wanting to cut down or quit but not being able to. [x] Spending a lot of time obtaining the substance. [x] Craving or a strong desire to use substance. [x] Repeatedly doesn't carry out major obligations due to substance use. [x] Using despite recurring social or interpersonal problems. [x] Reducing social, occupational, or recreational activities. [x] Recurrent use in physically hazardous situations. [x] Consistent use despite recurrent physical or psychological difficulties. [x] Tolerance (increased amounts to achieve intoxication or diminished effect). [x] Withdrawal syndrome or the substance is used to avoid withdrawal. REMAINING HISTORY Psychiatric History Current Psychiatrist: denies Current Medications: denies Diagnoses: denies but likely meets criteria for depression Previous Medication Trials: denies Psychiatric Hospitalizations: denies Previous Suicide Attempts: denies Adverse Childhood Events: denies Trauma History: likely History of Head Injuries: yes Past Medical History 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 Nausea and vomiting 12/22/22-12/26/22 admitted at [facility] Pain management Sleep apnea noncompliant with device Past Surgical History Past Surgical History: Procedure Laterality Date BACK SURGERY x 2 CHOLECYSTECTOMY LAMINECTOMY LAP,CHOLECYSTECTOMY (HISTORICAL) N/A 01/05/2023 WISDOM TOOTH EXTRACTION Family History Family History Problem Relation Name Age of Onset Depression Mother Depression Maternal Grandmother Social Determinants of Health Tobacco Use: High Risk (07/01/2023) Patient History Smoking Tobacco Use: Every Day Smokeless Tobacco Use: Former Passive Exposure: Not on file Alcohol Use: Heavy Drinker (06/22/2023) AUDIT-C Frequency of Alcohol Consumption: 4 or more times a week Average Number of Drinks: 10 or more Frequency of Binge Drinking: Daily or almost daily Financial Resource Strain: Not on file Food Insecurity: Not on file Transportation Needs: No Transportation Needs (06/22/2023) PRAPARE - Transportation Lack of Transportation (Medical): No Lack of Transportation (Non-Medical): No Physical Activity: Inactive (04/03/2023) Exercise Vital Sign Days of Exercise per Week: 0 days Minutes of Exercise per Session: 0 min Stress: No Stress Concern Present (04/03/2023) [employer] [place] [employer] - Occupational Stress Questionnaire Feeling of Stress : Not at all Social Connections: Not on file Intimate Partner Violence: Not At Risk (06/22/2023) Humiliation, Afraid, Rape, and Kick questionnaire Fear of Current or Ex-Partner: No Emotionally Abused: No Physically Abused: No Sexually Abused: No Depression: None or minimal depression (04/03/2023) PHQ-9 PHQ-9 Score: 3 Housing Stability: Low Risk (06/22/2023) Housing Stability Vital Sign Unable to Pay for Housing in the Last Year: No Number of Places Lived in the Last Year: 1 Unstable Housing in the Last Year: No REVIEW OF SYSTEMS Review of Systems Constitutional: Positive for activity change, appetite change and fatigue. Respiratory: Positive for shortness of breath. Gastrointestinal: Positive for nausea. Musculoskeletal: Positive for arthralgias, back pain and gait problem. Neurological: Positive for tremors, weakness and headaches. Psychiatric/Behavioral: Positive for dysphoric mood and sleep disturbance. The patient is nervous/anxious. EXAM Vitals Vitals: 06/30/23 2300 06/30/23 2306 07/01/23 0500 07/01/23 0923 BP: 131/69 131/81 133/78 Pulse: 83 86 98 97 Resp: 18 18 18 18 Temp: 36.8 C (98.2 F) 36.7 C (98.1 F) 36.7 C (98.1 F) TempSrc: Oral Oral Oral SpO2: 97% 97% 98% 98% PF: (!) 16 L/min Physical Exam Vitals and nursing note reviewed. Constitutional: General: He is not in acute distress. Appearance: He is obese. He is ill-appearing. HENT: Head: Normocephalic and atraumatic. Mouth/Throat: Mouth: Mucous membranes are dry. Eyes: General: No scleral icterus. Extraocular Movements: Extraocular movements intact. Conjunctiva/sclera: Conjunctivae normal. Cardiovascular: Rate and Rhythm: Regular rhythm. Tachycardia present. Pulmonary: Effort: Pulmonary effort is normal. Breath sounds: Normal breath sounds. Abdominal: General: There is distension. Musculoskeletal: General: Normal range of motion. Skin: General: Skin is warm. Neurological: General: No focal deficit present. Mental Status: He is alert and oriented to person, place, and time. Cranial Nerves: Cranial nerves 2-12 are intact. Motor: Weakness and tremor present. Psychiatric: Attention and Perception: Attention and perception normal. Mood and Affect: Mood normal. Affect is flat. Speech: Speech normal. Behavior: Behavior normal. Behavior is cooperative. Judgment: Judgment is inappropriate. IMAGING CT head wo IV contrast Result Date: 06/30/2023 Patient Name: WOODY NI : 1960 Exam Date/Time: 06/30/2023 17:48 Procedure: CT HEAD WO IV CONTRAST Ordering Provider: WHITLEY QUENTIN Reason For Exam: Head trauma, abnormal mental status (Age 18-64y) CT BRAIN AND CERVICAL SPINE WITHOUT CONTRAST CLINICAL INDICATION: Head trauma, abnormal mental status (Age 18-64y) TECHNIQUE: CT scan of the brain and cervical spine without IV contrast. Multiplanar reformations. Dose reduction was employed with automated exposure control. COMPARISON: CT brain, June,. FINDINGS: Brain: No parenchymal mass, mass effect, hemorrhage, midline shift or hydrocephalus. No evidence of acute cortical infarct. No abnormal, extra-axial fluid or air collection. Mild, patchy low density in the periventricular and subcortical white matter is nonspecific, but may relate to chronic small vessel ischemic change. Focal encephalomalacia suggesting old ischemic change or infarct(s) in the left temporal region again noted. Mild, diffuse volume loss. Osseous calvarium grossly intact. Cervical spine: Multilevel degenerative disc disease and spondylosis. No acute compression deformity or gross malalignment of cervical vertebral bodies. No acute fracture. No acute, osseous central spinal canal encroachment. Paraspinal soft tissues grossly unremarkable. 1. No acute intracranial findings. Chronic ischemic and atrophic changes. 2. No acute compression deformity or apparent fracture in the cervical spine. Degenerative spondylosis. Report Dictated on Electronically Signed By: Dallas Hanks MD Electronically Signed Date/Time: 06/30/2023 5:[address] cervical spine wo IV contrast Result Date: 06/30/2023 Patient Name: WOODY NI : 1960 [id number] Exam Date/Time: 06/30/2023 17:49 Procedure: CT CERVICAL SPINE WO IV CONTRAST Ordering Provider: WHITLEY QUENTIN Reason For Exam: Neck trauma, dangerous injury mechanism (Age 16-64y) CT BRAIN AND CERVICAL SPINE WITHOUT CONTRAST CLINICAL INDICATION: Head trauma, abnormal mental status (Age 18-64y) TECHNIQUE: CT scan of the brain and cervical spine without IV contrast. Multiplanar reformations. Dose reduction was employed with automated exposure control. COMPARISON: CT brain, June,. FINDINGS: Brain: No parenchymal mass, mass effect, hemorrhage, midline shift or hydrocephalus. No evidence of acute cortical infarct. No abnormal, extra-axial fluid or air collection. Mild, patchy low density in the periventricular and subcortical white matter is nonspecific, but may relate to chronic small vessel ischemic change. Focal encephalomalacia suggesting old ischemic change or infarct(s) in the left temporal region again noted. Mild, diffuse volume loss. Osseous calvarium grossly intact. Cervical spine: Multilevel degenerative disc disease and spondylosis. No acute compression deformity or gross malalignment of cervical vertebral bodies. No acute fracture. No acute, osseous central spinal canal encroachment. Paraspinal soft tissues grossly unremarkable. 1. No acute intracranial findings. Chronic ischemic and atrophic changes. 2. No acute compression deformity or apparent fracture in the cervical spine. Degenerative spondylosis. Report Dictated on Electronically Signed By: Dallas Hanks MD Electronically Signed Date/Time: 06/30/2023 5:58 PM EDT LABS Recent Results (from the past 48 hour(s)) CBC auto differential Collection Time: 06/30/23 6:29 PM Result Value Ref Range Auto WBC 6.5 3.6 - 10.7 10*3/uL RBC 3.89 (L) 4.40 - 5.90 10*6/uL Hemoglobin 13.0 13.0 - 18.0 g/dL Hematocrit 36.9 (L) 40.0 - 52.0 % MCV 95.0 80.0 - 98.0 fL MCH 33.5 26.0 - 34.0 pg MCHC 35.3 32.0 - 36.0 % RDW 15.2 (H) 11.5 - 14.5 % Platelets 256 140 - 440 10*3/uL MPV 6.9 (L) 7.4 - 12.4 fL nRBC 0.2 0.0 - 2.0 /100 WBCs Neutrophils Relative 55.7 40.0 - 80.0 % Lymphocytes Relative 31.6 20.0 - 40.0 % Monocytes Relative 10.9 (H) 2.0 - 10.0 % Eosinophils Relative 1.5 1.0 - 6.0 % Basophils Relative 0.3 0.0 - 2.0 % Neutrophils Absolute 3.6 1.8 - 7.0 10*3/uL Lymphocytes Absolute 2.1 1.0 - 4.3 10*3/uL Monocytes Absolute 0.7 0.0 - 0.8 10*3/uL Eosinophils Absolute 0.1 0.0 - 0.5 10*3/uL Basophils Absolute 0.0 0.0 - 0.2 10*3/uL Comprehensive metabolic panel Collection Time: 06/30/23 6:29 PM Result Value Ref Range SODIUM 119 (LL) 135 - 145 mmol/L POTASSIUM 4.3 3.5 - 5.1 mmol/L CHLORIDE 86 (L) 98 - 107 mmol/L CARBON DIOXIDE 19 (L) 22 - 30 mmol/L ANION GAP 14 (H) 3 - 13 mmol/L UREA NITROGEN 11 9 - 20 mg/dL CREATININE 1.36 (H) 0.66 - 1.25 mg/dL GLUCOSE 82 70 - 100 mg/dL CALCIUM 9.2 8.4 - 10.4 mg/dL AST (SGOT) 83 (H) 15 - 46 U/L ALT 45 0 - 49 U/L ALKALINE PHOSPHATASE 102 38 - 126 U/L ALBUMIN 4.8 3.5 - 5.0 g/dL BILIRUBIN, TOTAL 0.8 0.2 - 1.3 mg/dL TOTAL PROTEIN 8.4 (H) 6.3 - 8.2 g/dL eGFR 58.5 (L) >60.0 mL/min/1.73m*2 Ethanol Collection Time: 06/30/23 6:29 PM Result Value Ref Range ETHANOL IN SER/PLAS 0.270 (H) 0.000 - 0.010 g/dL Drug screen panel, emergency Collection Time: 06/30/23 6:30 PM Result Value Ref Range AMPHETAMINE SCREEN Negative BARBITURATES SCREEN Positive BENZODIAZEPINE SCREEN Negative COCAINE METAB. SCREEN Negative METHADONE SCREEN Negative OPIATES SCREEN Negative OXYCODONE SCREEN Negative PHENCYCLIDINE SCREEN Negative SARS-CoV-2 Antigen Collection Time: 06/30/23 6:30 PM Specimen: Nasal; Swab Result Value Ref Range SARS-CoV-2 Antigen Negative Negative Sodium, urine, random Collection Time: 06/30/23 6:30 PM Result Value Ref Range SODIUM, URINE 5 (L) 30 - 90 mmol/L Osmolality, urine Collection Time: 06/30/23 6:30 PM Result Value Ref Range OSMOLALITY, URINE 135 (L) 300 - 1,000 mOsm/kg CBC auto differential Collection Time: 07/01/23 5:05 AM Result Value Ref Range Auto WBC 5.1 3.6 - 10.7 10*3/uL RBC 3.60 (L) 4.40 - 5.90 10*6/uL Hemoglobin 12.2 (L) 13.0 - 18.0 g/dL Hematocrit 34.1 (L) 40.0 - 52.0 % MCV 94.7 80.0 - 98.0 fL MCH 33.8 26.0 - 34.0 pg MCHC 35.7 32.0 - 36.0 % RDW 15.1 (H) 11.5 - 14.5 % Platelets 242 140 - 440 10*3/uL MPV 7.2 (L) 7.4 - 12.4 fL nRBC 0.0 0.0 - 2.0 /100 WBCs Neutrophils Relative 61.2 40.0 - 80.0 % Lymphocytes Relative 22.5 20.0 - 40.0 % Monocytes Relative 14.8 (H) 2.0 - 10.0 % Eosinophils Relative 1.1 1.0 - 6.0 % Basophils Relative 0.4 0.0 - 2.0 % Neutrophils Absolute 3.1 1.8 - 7.0 10*3/uL Lymphocytes Absolute 1.2 1.0 - 4.3 10*3/uL Monocytes Absolute 0.8 0.0 - 0.8 10*3/uL Eosinophils Absolute 0.1 0.0 - 0.5 10*3/uL Basophils Absolute 0.0 0.0 - 0.2 10*3/uL Comprehensive metabolic panel Collection Time: 07/01/23 5:05 AM Result Value Ref Range SODIUM 128 (L) 135 - 145 mmol/L POTASSIUM 4.0 3.5 - 5.1 mmol/L CHLORIDE 95 (L) 98 - 107 mmol/L CARBON DIOXIDE 19 (L) 22 - 30 mmol/L ANION GAP 13 3 - 13 mmol/L UREA NITROGEN 10 9 - 20 mg/dL CREATININE 1.19 0.66 - 1.25 mg/dL GLUCOSE 75 70 - 100 mg/dL CALCIUM 8.9 8.4 - 10.4 mg/dL AST (SGOT) 73 (H) 15 - 46 U/L ALT 40 0 - 49 U/L ALKALINE PHOSPHATASE 92 38 - 126 U/L ALBUMIN 4.1 3.5 - 5.0 g/dL BILIRUBIN, TOTAL 0.7 0.2 - 1.3 mg/dL TOTAL PROTEIN 7.0 6.3 - 8.2 g/dL eGFR 68.6 >60.0 mL/min/1.73m*2 Basic metabolic panel Collection Time: 07/01/23 9:30 AM Result Value Ref Range SODIUM 128 (L) 135 - 145 mmol/L POTASSIUM 4.5 3.5 - 5.1 mmol/L CHLORIDE 98 98 - 107 mmol/L CARBON DIOXIDE 21 (L) 22 - 30 mmol/L UREA NITROGEN 11 9 - 20 mg/dL CREATININE 1.04 0.66 - 1.25 mg/dL GLUCOSE 78 70 - 100 mg/dL CALCIUM 8.6 8.4 - 10.4 mg/dL ANION GAP 9 3 - 13 mmol/L eGFR 80.7 >60.0 mL/min/1.73m*2 MEDICATIONS Home Meds Current Outpatient Medications Medication Instructions albuterol 108 (90 Base) MCG/ACT inhaler 1 puff, Inhalation, Every 4 hours PRN alendronate (FOSAMAX) 70 mg, Oral, Weekly amLODIPine (NORVASC) 2.5 mg, Oral, Daily Bioflavonoid Products (Alana-C) tablet Every 24 hours calcium carbonate (TUMS) 500 mg, Oral, Daily cyanocobalamin (Vitamin B-12) 1000 MCG/ML injection 1 mL intramuscularly once a month dicyclomine (BENTYL) 20 mg, Oral, 3 times daily before meals famotidine (PEPCID) 20 mg, Oral, 2 times daily fluticasone (Flonase) 50 MCG/ACT nasal spray 1 spray, Each Nostril, Daily PRN folic acid (FOLVITE) 1 mg, Oral, Daily ipratropium-albuterol (Duo-Neb) 0.5-2.5 mg/3 mL nebulizer solution Every 6 hours ketoconazole (NIZOral) 2 % shampoo EVERY THREE DAYS levothyroxine (Synthroid, Levoxyl) 50 MCG tablet TAKE 1 TABLET BY MOUTH DAILY losartan (COZAAR) 100 mg, Oral, Daily niacin 100 MG tablet Every 24 hours nitroglycerin (Nitrostat) 0.4 MG SL tablet 1 tab(s) sublingually every 5 minutes x 3 doses prn PHENobarbital (LUMINAL) 64.8 mg, Oral, Every 4 hours potassium chloride ER (Micro-K) 10 MEQ ER capsule 10 mEq, Oral, Daily sodium chloride 1 g, Oral, 2 times daily with meals tamsulosin (FLOMAX) 0.4 mg, Oral, Daily thiamine (VITAMIN B-1) 100 mg, Oral, Daily Scheduled Inpatient Meds amLODIPine, 2.5 mg, Oral, Daily dicyclomine, 20 mg, Oral, TID AC enoxaparin, 40 mg, SubCUTAneous, Daily famotidine, 20 mg, Oral, BID folic acid, 1 mg, Oral, Daily influenza, 0.5 mL, IntraMUSCular, Prior to discharge ipratropium-albuterol, 3 mL, Nebulization, q6h levothyroxine, 50 mcg, Oral, qAM AC losartan, 100 mg, Oral, Daily PHENobarbital, 64.8 mg, Oral, Q4H potassium chloride, 10 mEq, Oral, Daily sodium chloride, 1 g, Oral, BID WC tamsulosin, 0.4 mg, Oral, Daily thiamine, 100 mg, Oral, Daily PRN Inpatient Meds PRN medications: acetaminophen OR acetaminophen, fluticasone, LORazepam OR LORazepam OR LORazepam OR LORazepam OR LORazepam OR LORazepam OR LORazepam OR LORazepam, ondansetron ODT OR ondansetron, polyethylene glycol (PEG) 3350 Continuous Inpatient Infusions None ASSESSMENT & PLAN Severe alcohol use disorder Cigarette smoker Counseled patient on biopsychosocial consequences of substance use. Encouraged professional chemical dependency treatment. Encouraged 12 step meeting attendance. There is minimal chance this patient will be accepted at a residential treatment facility for alcoholism in this condition. He has to be able to ambulate and care for himself to be admitted at such a facility. His best best to eventually get admitted to an alcohol rehab (which I believe he desperately needs) is to go to a SNF first and regain strength. Then enroll in [facility]'s chemical dependency intensive outpatient program, and use our assistance to get into an alcohol rehab. This is a 1-2 month process most likely. Alcohol withdrawal - minimal Nicotine withdrawal Last use of alcohol was on 06/30/23. He was just admitted and detoxed from alcohol with phenobarbital from 06/21 - 06/26. Even if he immediately resumed drinking, I doubt he will have severe withdrawal symptoms this time. OK to continue phenobarbital to manage alcohol withdrawal symptoms for today. 64 mg q 4 hours for today. Thiamine/folic acid. OK to continue atian prn per CIWA protocol for in between scheduled phenobarbital doses. CIWA scores per unit protocol. Nicotine patch PRN medications for withdrawal symptom management added. Recurrent falls Inability to care for himself/failure to thrive PT/OT, will likely need placement again CT head negative Hyponatremia Alcoholic ketoacidosis Electrolyte abnormalities Severe malnutrition Alcoholic cirrhosis Elevated liver enzymes HTN Mgmt per nephrology, critical care, IM Chronic back pain Formerly on chronic narcotics Last rx in February per [facility], he was dismissed from pain mgmt due to alcoholism Will defer to primary team about need for opioids now Disposition: per primary team Will follow. I reviewed the patient's medical record, and reviewed test results. I educated and then counseled the patient on any substance use disorder or chemical dependency related issues. This included a face to face evaluation and physical examination, and coordinating care on a substance use disorder treatment plan as well as documenting clinical information on the day of visit. [facility] 07-01-2023 Consult note Associated Order (s): IP CONSULT TO ADDICTION MEDICINE Images from the original note were not included. ADDICTION MEDICINE CONSULTATION H&P Patient: Woody Ni Admit Date: 06/30/2023 Primary Care Physician: Jani Quezada Reason for Consultation: "etoh abuse." HISTORY OF PRESENT ILLNESS Chief Complaint Patient presents with Fall Woody iN is a 63 y.o. year old obese, white male with a PMH of DM, Hep C, cirrhosis, hypothyroidism, gout, chronic back pain, SHAYLA, depression, previous history of prescription opioid use (last rx filled for 30 days on 03/12/23, oxycodone 10 mg tabs, #120) that was admitted to assist with placement due to recurrent falls, generalized weakness, and an ability to take care of himself. This is occurring in the context of alcoholism. He was just admitted at [facility] for the same reasons, from 06/21/23 - 06/26/23. He was seen by my colleague and detoxed from alcohol with a phenobarbital taper. 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 He was discharged directly to [facility] for assisted due to generalized weakness, ambulation issues, etc. He was having frequent falls at home prior to that admission. Unfortunately, it seems he left AMA from that facility within a day or so and resumed drinking immediately. It seems his family brought him back to the ED. Woody Ni states that he is drinking daily, but denies any other drug use. NA 119 on admission and likely due to alcohol. Nephrology has been consulted. Of note, patient had liver biopsy while admitted at [facility] in 12/2022 and findings consistent with liver cirrhosis. Patient was receiving opioids for chronic pain from a pain management facility but around February 2023 he was dismissed from that program due to using alcohol while receiving opioids. He no longer receives opioids for pain, and it seems his alcohol use has escalated to compensate for a lack of narcotics. He has now been admitted to a hospital at least 3 times since then for the same issues. He has never pursued professional chemical dependency treatment after any of those admissions. On admission, a urine drug screen was positive for barbiturates, and a serum alcohol level was 270 on 06/30/23 @ 1829. SUBSTANCE USE HISTORY Brief Substance Use Narrative Patient reports that he for started drinking alcohol when he was 16 years old. 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 Patient denies any history withdrawal seizures, or DTs. Patient does report history of falls while intoxicated including those with head injury. He has also been diagnosed with numerous biopsychosocial problems related to alcoholism including liver cirrhosis, recurrent falls, etc... Patient is currently drinking to the point of intoxication, blackouts, and vomiting. Patient denies any history of MAT for substance use disorder, engagement in IOP or AA. He did receive chronic narcotic therapy for back issues for years, but did continue drinking while receiving those narcotics and was dismissed from that clinic around 02/2023. Otherwise, he denies abusing opioids or any other drugs. Current Substance Use Alcohol: about a case, 24 cans of 12 oz beer, daily. Amphetamines: denies. Benzos: denies. Cocaine: denies. Hallucinogens: denies. Marijuana: denies, but has admitted in the past. Nicotine: daily. Opioids: formerly prescribed narcotics, not since February 2023. Treatment History Inpatient Rehab: denies. Chem Dep IOP: denies. Detoxifications: several at [facility]. 12 Step Meetings: denies. Medication Assisted Treatment: denies. Consequences [] IVDA. [x] Blackouts related to substance use. [] History of withdrawal seizures. [] History of delirium tremens. [] History of overdoses. [] Legal consequences of substance use. Substance Use Disorder Criteria 2-3 = mild; 4-5 = moderate; 6 or >6 = severe substance use disorder [x] Taking substance in larger amounts and/or for longer than intended. [x] Wanting to cut down or quit but not being able to. [x] Spending a lot of time obtaining the substance. [x] Craving or a strong desire to use substance. [x] Repeatedly doesn't carry out major obligations due to substance use. [x] Using despite recurring social or interpersonal problems. [x] Reducing social, occupational, or recreational activities. [x] Recurrent use in physically hazardous situations. [x] Consistent use despite recurrent physical or psychological difficulties. [x] Tolerance (increased amounts to achieve intoxication or diminished effect). [x] Withdrawal syndrome or the substance is used to avoid withdrawal. REMAINING HISTORY Psychiatric History Current Psychiatrist: denies Current Medications: denies Diagnoses: denies but likely meets criteria for depression Previous Medication Trials: denies Psychiatric Hospitalizations: denies Previous Suicide Attempts: denies Adverse Childhood Events: denies Trauma History: likely History of Head Injuries: yes Past Medical History 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 Nausea and vomiting 12/22/22-12/26/22 admitted at [facility] Pain management Sleep apnea noncompliant with device Past Surgical History Past Surgical History: Procedure Laterality Date BACK SURGERY x 2 CHOLECYSTECTOMY LAMINECTOMY LAP,CHOLECYSTECTOMY (HISTORICAL) N/A 01/05/2023 WISDOM TOOTH EXTRACTION Family History Family History Problem Relation Name Age of Onset Depression Mother Depression Maternal Grandmother Social Determinants of Health Tobacco Use: High Risk (07/01/2023) Patient History Smoking Tobacco Use: Every Day Smokeless Tobacco Use: Former Passive Exposure: Not on file Alcohol Use: Heavy Drinker (06/22/2023) AUDIT-C Frequency of Alcohol Consumption: 4 or more times a week Average Number of Drinks: 10 or more Frequency of Binge Drinking: Daily or almost daily Financial Resource Strain: Not on file Food Insecurity: Not on file Transportation Needs: No Transportation Needs (06/22/2023) PRAPARE - Transportation Lack of Transportation (Medical): No Lack of Transportation (Non-Medical): No Physical Activity: Inactive (04/03/2023) Exercise Vital Sign Days of Exercise per Week: 0 days Minutes of Exercise per Session: 0 min Stress: No Stress Concern Present (04/03/2023) [employer] - Occupational Stress Questionnaire Feeling of Stress : Not at all Social Connections: Not on file Intimate Partner Violence: Not At Risk (06/22/2023) Humiliation, Afraid, Rape, and Kick questionnaire Fear of Current or Ex-Partner: No Emotionally Abused: No Physically Abused: No Sexually Abused: No Depression: None or minimal depression (04/03/2023) PHQ-9 PHQ-9 Score: 3 Housing Stability: Low Risk (06/22/2023) Housing Stability Vital Sign Unable to Pay for Housing in the Last Year: No Number of Places Lived in the Last Year: 1 Unstable Housing in the Last Year: No REVIEW OF SYSTEMS Review of Systems Constitutional: Positive for activity change, appetite change and fatigue. Respiratory: Positive for shortness of breath. Gastrointestinal: Positive for nausea. Musculoskeletal: Positive for arthralgias, back pain and gait problem. Neurological: Positive for tremors, weakness and headaches. Psychiatric/Behavioral: Positive for dysphoric mood and sleep disturbance. The patient is nervous/anxious. EXAM Vitals Vitals: 06/30/23 2300 06/30/23 2306 07/01/23 0500 07/01/23 0923 BP: 131/69 131/81 133/78 Pulse: 83 86 98 97 Resp: 18 18 18 18 Temp: 36.8 C (98.2 F) 36.7 C (98.1 F) 36.7 C (98.1 F) TempSrc: Oral Oral Oral SpO2: 97% 97% 98% 98% PF: (!) 16 L/min Physical Exam Vitals and nursing note reviewed. Constitutional: General: He is not in acute distress. Appearance: He is obese. He is ill-appearing. HENT: Head: Normocephalic and atraumatic. Mouth/Throat: Mouth: Mucous membranes are dry. Eyes: General: No scleral icterus. Extraocular Movements: Extraocular movements intact. Conjunctiva/sclera: Conjunctivae normal. Cardiovascular: Rate and Rhythm: Regular rhythm. Tachycardia present. Pulmonary: Effort: Pulmonary effort is normal. Breath sounds: Normal breath sounds. Abdominal: General: There is distension. Musculoskeletal: General: Normal range of motion. Skin: General: Skin is warm. Neurological: General: No focal deficit present. Mental Status: He is alert and oriented to person, place, and time. Cranial Nerves: Cranial nerves 2-12 are intact. Motor: Weakness and tremor present. Psychiatric: Attention and Perception: Attention and perception normal. Mood and Affect: Mood normal. Affect is flat. Speech: Speech normal. Behavior: Behavior normal. Behavior is cooperative. Judgment: Judgment is inappropriate. IMAGING CT head wo IV contrast Result Date: 06/30/2023 Patient Name: WOODY NI : 1960 [facility]#: [id number] Exam Date/Time: 06/30/2023 17:48 Procedure: CT HEAD WO IV CONTRAST Ordering Provider: WHITLEY QUENTIN Reason For Exam: Head trauma, abnormal mental status (Age 18-64y) CT BRAIN AND CERVICAL SPINE WITHOUT CONTRAST CLINICAL INDICATION: Head trauma, abnormal mental status (Age 18-64y) TECHNIQUE: CT scan of the brain and cervical spine without IV contrast. Multiplanar reformations. Dose reduction was employed with automated exposure control. COMPARISON: CT brain, June,. FINDINGS: Brain: No parenchymal mass, mass effect, hemorrhage, midline shift or hydrocephalus. No evidence of acute cortical infarct. No abnormal, extra-axial fluid or air collection. Mild, patchy low density in the periventricular and subcortical white matter is nonspecific, but may relate to chronic small vessel ischemic change. Focal encephalomalacia suggesting old ischemic change or infarct(s) in the left temporal region again noted. Mild, diffuse volume loss. Osseous calvarium grossly intact. Cervical spine: Multilevel degenerative disc disease and spondylosis. No acute compression deformity or gross malalignment of cervical vertebral bodies. No acute fracture. No acute, osseous central spinal canal encroachment. Paraspinal soft tissues grossly unremarkable. 1. No acute intracranial findings. Chronic ischemic and atrophic changes. 2. No acute compression deformity or apparent fracture in the cervical spine. Degenerative spondylosis. Report Dictated on Electronically Signed By: Dallas Hanks MD Electronically Signed Date/Time: 06/30/2023 5:[address] cervical spine wo IV contrast Result Date: 06/30/2023 [facility] Name: WOODY NI : 1960 [id number] Exam Date/Time: 06/30/2023 17:49 Procedure: CT CERVICAL SPINE WO IV CONTRAST Ordering Provider: WHITLEY QUENTIN Reason For Exam: Neck trauma, dangerous injury mechanism (Age 16-64y) CT BRAIN AND CERVICAL SPINE WITHOUT CONTRAST CLINICAL INDICATION: Head trauma, abnormal mental status (Age 18-64y) TECHNIQUE: CT scan of the brain and cervical spine without IV contrast. Multiplanar reformations. Dose reduction was employed with automated exposure control. COMPARISON: CT brain, June,. FINDINGS: Brain: No parenchymal mass, mass effect, hemorrhage, midline shift or hydrocephalus. No evidence of acute cortical infarct. No abnormal, extra-axial fluid or air collection. Mild, patchy low density in the periventricular and subcortical white matter is nonspecific, but may relate to chronic small vessel ischemic change. Focal encephalomalacia suggesting old ischemic change or infarct(s) in the left temporal region again noted. Mild, diffuse volume loss. Osseous calvarium grossly intact. Cervical spine: Multilevel degenerative disc disease and spondylosis. No acute compression deformity or gross malalignment of cervical vertebral bodies. No acute fracture. No acute, osseous central spinal canal encroachment. Paraspinal soft tissues grossly unremarkable. 1. No acute intracranial findings. Chronic ischemic and atrophic changes. 2. No acute compression deformity or apparent fracture in the cervical spine. Degenerative spondylosis. Report Dictated on Electronically Signed By: Dallas Hanks MD Electronically Signed Date/Time: 06/30/2023 5:58 PM EDT LABS Recent Results (from the past 48 hour(s)) CBC auto differential Collection Time: 06/30/23 6:29 PM Result Value Ref Range Auto WBC 6.5 3.6 - 10.7 10*3/uL RBC 3.89 (L) 4.40 - 5.90 10*6/uL Hemoglobin 13.0 13.0 - 18.0 g/dL Hematocrit 36.9 (L) 40.0 - 52.0 % MCV 95.0 80.0 - 98.0 fL MCH 33.5 26.0 - 34.0 pg MCHC 35.3 32.0 - 36.0 % RDW 15.2 (H) 11.5 - 14.5 % Platelets 256 140 - 440 10*3/uL MPV 6.9 (L) 7.4 - 12.4 fL nRBC 0.2 0.0 - 2.0 /100 WBCs Neutrophils Relative 55.7 40.0 - 80.0 % Lymphocytes Relative 31.6 20.0 - 40.0 % Monocytes Relative 10.9 (H) 2.0 - 10.0 % Eosinophils Relative 1.5 1.0 - 6.0 % Basophils Relative 0.3 0.0 - 2.0 % Neutrophils Absolute 3.6 1.8 - 7.0 10*3/uL Lymphocytes Absolute 2.1 1.0 - 4.3 10*3/uL Monocytes Absolute 0.7 0.0 - 0.8 10*3/uL Eosinophils Absolute 0.1 0.0 - 0.5 10*3/uL Basophils Absolute 0.0 0.0 - 0.2 10*3/uL Comprehensive metabolic panel Collection Time: 06/30/23 6:29 PM Result Value Ref Range SODIUM 119 (LL) 135 - 145 mmol/L POTASSIUM 4.3 3.5 - 5.1 mmol/L CHLORIDE 86 (L) 98 - 107 mmol/L CARBON DIOXIDE 19 (L) 22 - 30 mmol/L ANION GAP 14 (H) 3 - 13 mmol/L UREA NITROGEN 11 9 - 20 mg/dL CREATININE 1.36 (H) 0.66 - 1.25 mg/dL GLUCOSE 82 70 - 100 mg/dL CALCIUM 9.2 8.4 - 10.4 mg/dL AST (SGOT) 83 (H) 15 - 46 U/L ALT 45 0 - 49 U/L ALKALINE PHOSPHATASE 102 38 - 126 U/L ALBUMIN 4.8 3.5 - 5.0 g/dL BILIRUBIN, TOTAL 0.8 0.2 - 1.3 mg/dL TOTAL PROTEIN 8.4 (H) 6.3 - 8.2 g/dL eGFR 58.5 (L) >60.0 mL/min/1.73m*2 Ethanol Collection Time: 06/30/23 6:29 PM Result Value Ref Range ETHANOL IN SER/PLAS 0.270 (H) 0.000 - 0.010 g/dL Drug screen panel, emergency Collection Time: 06/30/23 6:30 PM Result Value Ref Range AMPHETAMINE SCREEN Negative BARBITURATES SCREEN Positive BENZODIAZEPINE SCREEN Negative COCAINE METAB. SCREEN Negative METHADONE SCREEN Negative OPIATES SCREEN Negative OXYCODONE SCREEN Negative PHENCYCLIDINE SCREEN Negative SARS-CoV-2 Antigen Collection Time: 06/30/23 6:30 PM Specimen: Nasal; Swab Result Value Ref Range SARS-CoV-2 Antigen Negative Negative Sodium, urine, random Collection Time: 06/30/23 6:30 PM Result Value Ref Range SODIUM, URINE 5 (L) 30 - 90 mmol/L Osmolality, urine Collection Time: 06/30/23 6:30 PM Result Value Ref Range OSMOLALITY, URINE 135 (L) 300 - 1,000 mOsm/kg CBC auto differential Collection Time: 07/01/23 5:05 AM Result Value Ref Range Auto WBC 5.1 3.6 - 10.7 10*3/uL RBC 3.60 (L) 4.40 - 5.90 10*6/uL Hemoglobin 12.2 (L) 13.0 - 18.0 g/dL Hematocrit 34.1 (L) 40.0 - 52.0 % MCV 94.7 80.0 - 98.0 fL MCH 33.8 26.0 - 34.0 pg MCHC 35.7 32.0 - 36.0 % RDW 15.1 (H) 11.5 - 14.5 % Platelets 242 140 - 440 10*3/uL MPV 7.2 (L) 7.4 - 12.4 fL nRBC 0.0 0.0 - 2.0 /100 WBCs Neutrophils Relative 61.2 40.0 - 80.0 % Lymphocytes Relative 22.5 20.0 - 40.0 % Monocytes Relative 14.8 (H) 2.0 - 10.0 % Eosinophils Relative 1.1 1.0 - 6.0 % Basophils Relative 0.4 0.0 - 2.0 % Neutrophils Absolute 3.1 1.8 - 7.0 10*3/uL Lymphocytes Absolute 1.2 1.0 - 4.3 10*3/uL Monocytes Absolute 0.8 0.0 - 0.8 10*3/uL Eosinophils Absolute 0.1 0.0 - 0.5 10*3/uL Basophils Absolute 0.0 0.0 - 0.2 10*3/uL Comprehensive metabolic panel Collection Time: 07/01/23 5:05 AM Result Value Ref Range SODIUM 128 (L) 135 - 145 mmol/L POTASSIUM 4.0 3.5 - 5.1 mmol/L CHLORIDE 95 (L) 98 - 107 mmol/L CARBON DIOXIDE 19 (L) 22 - 30 mmol/L ANION GAP 13 3 - 13 mmol/L UREA NITROGEN 10 9 - 20 mg/dL CREATININE 1.19 0.66 - 1.25 mg/dL GLUCOSE 75 70 - 100 mg/dL CALCIUM 8.9 8.4 - 10.4 mg/dL AST (SGOT) 73 (H) 15 - 46 U/L ALT 40 0 - 49 U/L ALKALINE PHOSPHATASE 92 38 - 126 U/L ALBUMIN 4.1 3.5 - 5.0 g/dL BILIRUBIN, TOTAL 0.7 0.2 - 1.3 mg/dL TOTAL PROTEIN 7.0 6.3 - 8.2 g/dL eGFR 68.6 >60.0 mL/min/1.73m*2 Basic metabolic panel Collection Time: 07/01/23 9:30 AM Result Value Ref Range SODIUM 128 (L) 135 - 145 mmol/L POTASSIUM 4.5 3.5 - 5.1 mmol/L CHLORIDE 98 98 - 107 mmol/L CARBON DIOXIDE 21 (L) 22 - 30 mmol/L UREA NITROGEN 11 9 - 20 mg/dL CREATININE 1.04 0.66 - 1.25 mg/dL GLUCOSE 78 70 - 100 mg/dL CALCIUM 8.6 8.4 - 10.4 mg/dL ANION GAP 9 3 - 13 mmol/L eGFR 80.7 >60.0 mL/min/1.73m*2 MEDICATIONS Home Meds Current Outpatient Medications Medication Instructions albuterol 108 (90 Base) MCG/ACT inhaler 1 puff, Inhalation, Every 4 hours PRN alendronate (FOSAMAX) 70 mg, Oral, Weekly amLODIPine (NORVASC) 2.5 mg, Oral, Daily Bioflavonoid Products (Alana-C) tablet Every 24 hours calcium carbonate (TUMS) 500 mg, Oral, Daily cyanocobalamin (Vitamin B-12) 1000 MCG/ML injection 1 mL intramuscularly once a month dicyclomine (BENTYL) 20 mg, Oral, 3 times daily before meals famotidine (PEPCID) 20 mg, Oral, 2 times daily fluticasone (Flonase) 50 MCG/ACT nasal spray 1 spray, Each Nostril, Daily PRN folic acid (FOLVITE) 1 mg, Oral, Daily ipratropium-albuterol (Duo-Neb) 0.5-2.5 mg/3 mL nebulizer solution Every 6 hours ketoconazole (NIZOral) 2 % shampoo EVERY THREE DAYS levothyroxine (Synthroid, Levoxyl) 50 MCG tablet TAKE 1 TABLET BY MOUTH DAILY losartan (COZAAR) 100 mg, Oral, Daily niacin 100 MG tablet Every 24 hours nitroglycerin (Nitrostat) 0.4 MG SL tablet 1 tab(s) sublingually every 5 minutes x 3 doses prn PHENobarbital (LUMINAL) 64.8 mg, Oral, Every 4 hours potassium chloride ER (Micro-K) 10 MEQ ER capsule 10 mEq, Oral, Daily sodium chloride 1 g, Oral, 2 times daily with meals tamsulosin (FLOMAX) 0.4 mg, Oral, Daily thiamine (VITAMIN B-1) 100 mg, Oral, Daily Scheduled Inpatient Meds amLODIPine, 2.5 mg, Oral, Daily dicyclomine, 20 mg, Oral, TID AC enoxaparin, 40 mg, SubCUTAneous, Daily famotidine, 20 mg, Oral, BID folic acid, 1 mg, Oral, Daily influenza, 0.5 mL, IntraMUSCular, Prior to discharge ipratropium-albuterol, 3 mL, Nebulization, q6h levothyroxine, 50 mcg, Oral, qAM AC losartan, 100 mg, Oral, Daily PHENobarbital, 64.8 mg, Oral, Q4H potassium chloride, 10 mEq, Oral, Daily sodium chloride, 1 g, Oral, BID WC tamsulosin, 0.4 mg, Oral, Daily thiamine, 100 mg, Oral, Daily PRN Inpatient Meds PRN medications: acetaminophen OR acetaminophen, fluticasone, LORazepam OR LORazepam OR LORazepam OR LORazepam OR LORazepam OR LORazepam OR LORazepam OR LORazepam, ondansetron ODT OR ondansetron, polyethylene glycol (PEG) 3350 Continuous Inpatient Infusions None ASSESSMENT & PLAN Severe alcohol use disorder Cigarette smoker Counseled patient on biopsychosocial consequences of substance use. Encouraged professional chemical dependency treatment. Encouraged 12 step meeting attendance. There is minimal chance this patient will be accepted at a residential treatment facility for alcoholism in this condition. He has to be able to ambulate and care for himself to be admitted at such a facility. His best best to eventually get admitted to an alcohol rehab (which I believe he desperately needs) is to go to a SNF first and regain strength. Then enroll in [facility]'s chemical dependency intensive outpatient program, and use our assistance to get into an alcohol rehab. This is a 1-2 month process most likely. Alcohol withdrawal - minimal Nicotine withdrawal Last use of alcohol was on 06/30/23. He was just admitted and detoxed from alcohol with phenobarbital from 06/21 - 06/26. Even if he immediately resumed drinking, I doubt he will have severe withdrawal symptoms this time. OK to continue phenobarbital to manage alcohol withdrawal symptoms for today. 64 mg q 4 hours for today. Thiamine/folic acid. OK to continue atian prn per CIWA protocol for in between scheduled phenobarbital doses. CIWA scores per unit protocol. Nicotine patch PRN medications for withdrawal symptom management added. Recurrent falls Inability to care for himself/failure to thrive PT/OT, will likely need placement again CT head negative Hyponatremia Alcoholic ketoacidosis Electrolyte abnormalities Severe malnutrition Alcoholic cirrhosis Elevated liver enzymes HTN Mgmt per nephrology, critical care, IM Chronic back pain Formerly on chronic narcotics Last rx in February per [facility], he was dismissed from pain mgmt due to alcoholism Will defer to primary team about need for opioids now Disposition: per primary team Will follow. I reviewed the patient's medical record, and reviewed test results. I educated and then counseled the patient on any substance use disorder or chemical dependency related issues. This included a face to face evaluation and physical examination, and coordinating care on a substance use disorder treatment plan as well as documenting clinical information on the day of visit. Associated Order(s): IP CONSULT TO NEPHROLOGY [facility] Consult Note Reason for Consult: hyponatremia Requesting Physician: Steve Whitley MD;Lis* Chief Complaint: Chief Complaint Patient presents with Fall History of Present Ilness: Woody Ni is a 63 y.o. who presents to the emergency department with chief complaint of requesting detox and placement at rehab. He was just admitted for alcohol detox and then was placed at rehab because he was weak and unable to care for himself or walk. He has been drinking since leaving the rehab facility brought in by family now to try to again get admitted is having frequent falls at home and is likely a danger to himself. Denies chest pain, SOB, N/V/D or pain. Nephrology is asked to see the patient for hyponatremia. Patient currently has an Na level of 128, previously 119 and has a chronically low baseline. Patient is known to us from previous admissions. Chronic use of ETOH as mentioned above. Drinking about 24 beers a day per him. Poor protein intake daily is suspected. No use of thiazide diuretics, SSRIs or anti-epileptics. No known use of NSAIDs. Denies issues with UOP. No known head injury. Smokes cigars and marijuana as well. 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 Current Outpatient Medications on File Prior to Encounter Medication Sig Dispense Refill albuterol 108 (90 Base) MCG/ACT inhaler Inhale 1 puff every 4 hours as needed. alendronate (Fosamax) 70 MG tablet Take 70 mg by mouth once a week. amLODIPine (Norvasc) 2.5 MG tablet Take 2.5 mg by mouth in the morning. Bioflavonoid Products (Alana-C) tablet Every 24 hours. calcium carbonate (Tums) 500 MG chewable tablet Chew 1 tablet (500 mg) daily. Do not start before February 15, 2023. 30 tablet 11 cyanocobalamin (Vitamin B-12) 1000 MCG/ML injection 1 mL intramuscularly once a month dicyclomine (Bentyl) 20 MG tablet Take 1 tablet (20 mg) by mouth in the morning and 1 tablet (20 mg) at noon and 1 tablet (20 mg) in the evening. Take before meals. 90 tablet 1 famotidine (Pepcid) 20 MG tablet Take 1 tablet (20 mg) by mouth 2 times daily. 60 tablet 0 fluticasone (Flonase) 50 MCG/ACT nasal spray Administer 1 spray into each nostril daily as needed. folic acid (Folvite) 1 MG tablet Take 1 tablet (1 mg) by mouth daily. Do not start before April 16, 2023. 30 tablet 0 ipratropium-albuterol (Duo-Neb) 0.5-2.5 mg/3 mL nebulizer solution every 6 hours. ketoconazole (NIZOral) 2 % shampoo EVERY THREE DAYS levothyroxine (Synthroid, Levoxyl) 50 MCG tablet TAKE 1 TABLET BY MOUTH DAILY 30 tablet 0 losartan (Cozaar) 100 MG tablet Take 1 tablet (100 mg) by mouth daily. Do not start before February 15, 2023. 30 tablet 11 niacin 100 MG tablet Every 24 hours. nitroglycerin (Nitrostat) 0.4 MG SL tablet 1 tab(s) sublingually every 5 minutes x 3 doses prn PHENobarbital (Luminal) 64.8 MG tablet Take 1 tablet (64.8 mg) by mouth every 4 hours. 180 tablet 0 potassium chloride ER (Micro-K) 10 MEQ ER capsule Take 10 mEq by mouth in the morning. sodium chloride 1 g tablet Take 1 tablet (1 g) by mouth in the morning and 1 tablet (1 g) in the evening. Take with meals. 60 tablet 11 tamsulosin (Flomax) 0.4 MG 24 hr capsule Take 0.4 mg by mouth daily. thiamine (Vitamin B-1) 100 MG tablet Take 1 tablet (100 mg) by mouth daily. Do not start before April 16, 2023. 30 tablet 0 [DISCONTINUED] Lidocaine 4 % patch Place 1 patch on the skin daily. Do not start before April 16, 2023. 15 patch 0 [DISCONTINUED] oxyCODONE (Roxicodone) 10 MG immediate release tablet Take 10 mg by mouth in the morning and 10 mg at noon and 10 mg in the evening and 10 mg before bedtime. Allergies: Allopurinol, Codeine, and Penicillin g Social History: Social History Socioeconomic History Marital status: Spouse name: Not on file Number of children: Not on file Years of education: Not on file Highest education level: Not on file Occupational History Not on file Tobacco Use Smoking status: Every Day Types: Cigars Last attempt to quit: 1982 Years since quittin.7 Smokeless tobacco: Former Vaping Use Vaping Use: Every day Substances: CBD, canabis Devices: Disposable Substance and Sexual Activity Alcohol use: Yes Alcohol/week: 42.0 standard drinks of alcohol Types: 42 Cans of beer per week Comment: TALL BOY ARE DOUBLE BEERS 42 per week Drug use: Yes Types: Marijuana Comment: daily Sexual activity: Not on file Other Topics Concern Not on file Social History Narrative Not on file Social Determinants of Health Financial Resource Strain: Not on file Food Insecurity: Not on file Transportation Needs: No Transportation Needs (06/22/2023) PRAPARE - Transportation Lack of Transportation (Medical): No Lack of Transportation (Non-Medical): No Physical Activity: Inactive (04/03/2023) Exercise Vital Sign Days of Exercise per Week: 0 days Minutes of Exercise per Session: 0 min Stress: No Stress Concern Present (04/03/2023) [employer] - Occupational Stress Questionnaire Feeling of Stress : Not at all Social Connections: Not on file Intimate Partner Violence: Not At Risk (06/22/2023) Humiliation, Afraid, Rape, and Kick questionnaire Fear of Current or Ex-Partner: No Emotionally Abused: No Physically Abused: No Sexually Abused: No Housing Stability: Low Risk (06/22/2023) Housing Stability Vital Sign Unable to Pay for Housing in the Last Year: No Number of Places Lived in the Last Year: 1 Unstable Housing in the Last Year: No Family History: Family History Problem Relation Name Age of Onset Depression Mother Depression Maternal Grandmother Review of Systems: Pertinent positives stated above in HPI. All other systems were reviewed and were negative. Physical exam: Constitutional: Vitals: 06/30/23 1730 06/30/23 2300 06/30/23 2306 07/01/23 0500 BP: (!) 148/87 131/69 131/81 Pulse: 79 83 86 98 Resp: 16 18 18 18 Temp: (!) 35.8 C (96.5 F) 36.8 C (98.2 F) 36.7 C (98.1 F) TempSrc: Temporal Oral Oral SpO2: 98% 97% 97% 98% CURRENT TEMPERATURE: Temp: 36.7 C (98.1 F) MAXIMUM TEMPERATURE OVER 24HRS: Temp (24hrs), Av.4 C (97.6 F), Min:35.8 C (96.5 F), Max:36.8 C (98.2 F) CURRENT PULSE: Heart Rate: 98 CURRENT BLOOD PRESSURE: BP: 131/81 24HR BLOOD PRESSURE RANGE: Systolic (24hrs), Av , Min:131 , Max:148 ; Diastolic (24hrs), Av, Min:69, Max:87 24HR INTAKE/OUTPUT: No intake or output data in the 24 hours ending 07/01/23920 Physical Exam: Appearance: NAD, awake, alert, cooperative to exam, malnourished+ Eyes: PERRLA, clear sclera ENT: hearing normal, no oral thrush, no erythema or exudate on hard or soft palate, tongue normal, dry mucus membranes Neck: supple, no JVD, no thyromegaly Respiratory: breathing unlabored, lungs CTA B/L anteriorly without w/r/r Cardiovascular: heart RRR without m/g/r, pedal pulses palpable Gastrointestinal: abdomen soft, non-tender, non-distended, normoactive bowel sounds. No masses or hernia. Musculoskeletal: normal muscle strength and tone, no edema of BLE Skin: warm and dry, no rash or wounds Neurologic: symmetric strength and sensation Psychiatric: alert and oriented to person/place/time, judgement and insight normal, memory intact, normal mood and range of affect Data: LIVER PROFILE: Recent Labs 06/30/23182807/01/23 0505 AST 83* 73* ALT 45 40 BILITOT 0.8 0.7 ALKPHOS 102 92 CBC: Recent Labs 06/30/23182807/01/23 0505 WBC 6.5 5.1 RBC 3.89* 3.60* HGB 13.0 12.2* HCT 36.9* 34.1* MCV 95.0 94.7 RDW 15.2* 15.1* PLT 256 242 BMP: Recent Labs 06/30/23182807/01/23 0505 NA 119* 128* K 4.3 4.0 CL 86* 95* CO2 19* 19* BUN 11 10 CREATININE 1.36* 1.19 BNP: No results for input(s): BNP in the last 72 hours. ABGs: No results found for: PH, PCO2, PO2, HCO3, O2SAT Nephro Labs: amLODIPine, 2.5 mg, Oral, Daily dicyclomine, 20 mg, Oral, TID AC enoxaparin, 40 mg, SubCUTAneous, Daily famotidine, 20 mg, Oral, BID folic acid, 1 mg, Oral, Daily influenza, 0.5 mL, IntraMUSCular, Prior to discharge ipratropium-albuterol, 3 mL, Nebulization, q6h levothyroxine, 50 mcg, Oral, qAM AC losartan, 100 mg, Oral, Daily PHENobarbital, 64.8 mg, Oral, Q4H potassium chloride, 10 mEq, Oral, Daily sodium chloride, 1 g, Oral, BID WC tamsulosin, 0.4 mg, Oral, Daily thiamine, 100 mg, Oral, Daily PRN medications: acetaminophen OR acetaminophen, fluticasone, LORazepam OR LORazepam OR LORazepam OR LORazepam OR LORazepam OR LORazepam OR LORazepam OR LORazepam, ondansetron ODT OR ondansetron, polyethylene glycol (PEG) 3350 No results for input(s): COLORU, CLARITYU, PH, PHUR, LABSPEC, GLUCOSEU, BLOODU, LEUKOCYTESUR, NITRITE, BILIRUBINUR, UROBILINOGEN, BACTERIA, AMORPHOUS, CASTS in the last 72 hours. No lab exists for component: PROTEINUA, KEYTONESU, RBCUA, WBCUA, CRYSTAL Imaging: reviewed Assessment: Acute hyponatremia 2/2 beer potomania +/- volume depletion from poor po intake 2. Acute NAGMA 3. ETOH abuse 4. Severe protein calorie malnutrition 5. Failure to thrive 6. Fall, multiple 7. HTN essential Plan: -Na 128 from 119, borderline overcorrection -High risk for ODS in the setting of ETOH abuse and low presenting Na level -Ur Na c/w volume depletion, agree with IVF as has been administered, will hold off on further IVF for now to prevent overcorrection -Fluid restriction: 1.8L for now -Encourage 3 meals a day high in protein -Need to control pain/vomiting with prn medications to suppress further ADH stimulation -Na rate of correction not to exceed >8mEq/L/day to prevent neurological sequelae, please notify nephrology if rate of rise is exceeding above parameters -Check bladder scan x1 for pvr -Expect HCO3 to improve on its own now that NS is not infusing -Needs outpatient assistance with alcohol cessation, recommend addiction med consult -All other care per primary team -We will follow closely with you Thank you for the consult and the opportunity to participate in the care of this patient. Please do not hesitate to call with any questions or concerns. Ophelia Ramos APRN, ANIMAL CONTROL SPECIALIST [facility], [facility] [phone] office Associated attestation - Kennedi Pérez MD - 07/01/2023 3:34 PM EDT Seen and examined. Agree with above A and p. Hyponatremia responding to volume. Borderline rapid overcorrection of Na, hold IVF. Periodic Na checks throughout the rest of the day to trend Na. Alcohol cessation counseling. documented in this encounter [facility] 07-01-2023 Note Formatting of this n ote might be different from the original. Care Managment Initial Assessment Date: 07/01/2023 Patient Name: Woody Ni : 1960 Patient Information Source of Information: Patient Cognition/Language: WFL - Within Functional Limits Permission given to speak with patient underwriting account representative/caregiver as indicated: Yes Confirmation of Payer with patient/family: Yes Payer Name: [place]/ Medicaid secondary : Yes (Is not Active with [facility]) Confirmation of Primary Care Physician: Confirmed PCP Name: Dr. Quezada Seen in last 2 years?: Yes Primary Caregiver: Spouse/significant other (Christie Carl) If assistance needed, confirmed caregiver ready, willing and able to care for patient at discharge: Yes Confirmed with: Patient Living Arrangements Current Residence: House Number of Floors 2 Number of Entry Steps: 1 Bed/Bath Levels: Both first floor Facility: Facility Name: Plan to Return: Lives with: Spouse/significant other Support Systems: Spouse/significant other Activities of Daily Living Ambulation: Independent Bathing/Dressing: Assistance Elimination/Continence/Toileting: Independent Feeding: Independent Who Assists with Activities of Daily Living: Dennis Rosales Instrumental Activities of Daily Living Prescription Coverage: Yes Pharmacy Used: [facility] Medication Management: Independent (christie will assist if needed) Transportation/Shopping: Assistance Provider Transportation/Shopping Assistance Provider Name: Christie Transportation Mode: Car Needs Assistance with Transportation at Discharge: No Meal Preparation: Assistance Provider Meal Prep Assistance Provider Name: Christie Laundry/Cleaning: Assistance Provider Laundry/Cleaning Assistance Provider Name: Christie Finances/Bill Paying: Assistance Provider Finances/Bill Payer Assistance Provider Name: Christie Communication: Independent Types of Care Services/Equipment Utilized Care Services: Dialysis Type: Durable Medical Equipment: Walker, Cane, Wheelchair (standard or power) (No home O2, daughter currently has his tub bench) Patient's Goal/Discharge Plan Patient expects to be discharged to: Residential Treatment center Discharge Planning Actions: Continue to follow (Residential Treatment center) Patient's Choice Rights and [employer] and Collaborative Relationships Disclosed as Indicated for Post-Acute Care: Yes Interdisciplinary Team Engagement: Addiction Medicine, PT/OT Social Work Referral for: Community Resources, Other (Comment) (ETOH resources) Additional Information: Patient in from home with falls and ETOH intoxication, asking for Detox and Rehab. Patient reports PCP sent him in for evaluation I did visit patient in his ED room to assess. Patient AOX3, no signs of intoxication now. The patient resides with his Girlfriend of 26 years Kingsley. They reside in a 2SH with 1SE. The patient reports he lives on the lower level only, bed and bath on this floor. The patient has a walker, cane and wheelchair. He does not have home O2. He reports no outside services coming in to the home. He sees Dr. Quezada and uses the [facility] in [place] as his pharmacy. He is a [place] but is not in the [place] medical system. The patient reports that his Significant Other Kingsley ( 26 yrs together) does the cleaning, cooking and finances. He notes she works two jobs. The patient is on Disability from a back injury suffered on the job ( back fractures). Sociall Security is approx $1100 month[address] patient [address] not drive. The patient does admit to drinking 24 beers a day. He has been drinking since he was 14 yrs old. He has gone through detox one time and was Sober for 27 days after. He notes he recently was sent to [facility] for some short term rehab. Chart review reveals he was just sent to the facility on 06/26. He notes he left the facility as they ran out of his Phenobarbitol. He was sent to the facility skilled under his [employer] insurance. The patient has been seen again by therapy and HHC has been recommended. The patient has voiced that he desires Residential Treatment for his ETOH. S/W will work to see if patient can get into a facility from here. [facility] 07-01-2023 Note Formatting of this n ote might be different from the original. Care Managment Initial Assessment Date: 07/01/2023 Patient Name: Woody Ni : 1960 Patient Information Source of Information: Patient Cognition/Language: WFL - Within Functional Limits Permission given to speak with patient underwriting account representative/caregiver as indicated: Yes Confirmation of Payer with patient/family: Yes Payer Name: [place]/ Medicaid secondary : Yes (Is not Active with [facility] medical) Confirmation of Primary Care Physician: Confirmed PCP Name: Dr. Quezada Seen in last 2 years?: Yes Primary Caregiver: Spouse/significant other (Christie Carl) If assistance needed, confirmed caregiver ready, willing and able to care for patient at discharge: Yes Confirmed with: Patient Living Arrangements Current Residence: House Number of Floors 2 Number of Entry Steps: 1 Bed/Bath Levels: Both first floor Facility: Facility Name: Plan to Return: Lives with: Spouse/significant other Support Systems: Spouse/significant other Activities of Daily Living Ambulation: Independent Bathing/Dressing: Assistance Elimination/Continence/Toileting: Independent Feeding: Independent Who Assists with Activities of Daily Living: Dennis Rosales Instrumental Activities of Daily Living Prescription Coverage: Yes Pharmacy Used: [facility] Medication Management: Independent (christie will assist if needed) Transportation/Shopping: Assistance Provider Transportation/Shopping Assistance Provider Name: Christie Transportation Mode: Car Needs Assistance with Transportation at Discharge: No Meal Preparation: Assistance Provider Meal Prep Assistance Provider Name: Christie Laundry/Cleaning: Assistance Provider Laundry/Cleaning Assistance Provider Name: Christie Finances/Bill Paying: Assistance Provider Finances/Bill Payer Assistance Provider Name: Christie Communication: Independent Types of Care Services/Equipment Utilized Care Services: Dialysis Type: Durable Medical Equipment: Walker, Cane, Wheelchair (standard or power) (No home O2, daughter currently has his tub bench) Patient's Goal/Discharge Plan Patient expects to be discharged to: Residential Treatment center Discharge Planning Actions: Continue to follow (Residential Treatment center) Patient's Choice Rights and [employer] and Collaborative Relationships Disclosed as Indicated for Post-Acute Care: Yes Interdisciplinary Team Engagement: Addiction Medicine, PT/OT Social Work Referral for: Community Resources, Other (Comment) (ETOH resources) Additional Information: Patient in from home with falls and ETOH intoxication, asking for Detox and Rehab. Patient reports PCP sent him in for evaluation I did visit patient in his ED room to assess. Patient AOX3, no signs of intoxication now. The patient resides with his Girlfriend of 26 years Kingsley. They reside in a 2SH with 1SE. The patient reports he lives on the lower level only, bed and bath on this floor. The patient has a walker, cane and wheelchair. He does not have home O2. He reports no outside services coming in to the home. He sees Dr. Quezada and uses the [facility] in [place] as his pharmacy. He is a [place] but is not in the [place] medical [place]. The patient reports that his Significant Other Kingsley ( 26 yrs together) does the cleaning, cooking and finances. He notes she works two jobs. The patient is on Disability from a back injury suffered on the job ( back fractures). Sociall Security is approx $1100 month[address] patient [address] not [address]. The patient does admit to drinking 24 beers a day. He has been drinking since he was 14 yrs old. He has gone through detox one time and was Sober for 27 days after. He notes he recently was sent to [facility] for some short term rehab. Chart review reveals he was just sent to the facility on 06/26. He notes he left the facility as they ran out of his Phenobarbitol. He was sent to the facility skilled under his [place] insurance. The patient has been seen again by therapy and HHC has been recommended. The patient has voiced that he desires Residential Treatment for his ETOH. S/W will work to see if patient can get into a facility from here. [facility] 07-01-2023 Consult note Associated Order (s): IP CONSULT TO NEPHROLOGY [facility] Consult Note Reason for Consult: hyponatremia Requesting Physician: Steve Whitley MD;Lis* Chief Complaint: Chief Complaint Patient presents with Fall History of Present Ilness: Woody Ni is a 63 y.o. who presents to the emergency department with chief complaint of requesting detox and placement at rehab. He was just admitted for alcohol detox and then was placed at rehab because he was weak and unable to care for himself or walk. He has been drinking since leaving the rehab facility brought in by family now to try to again get admitted is having frequent falls at home and is likely a danger to himself. Denies chest pain, SOB, N/V/D or pain. Nephrology is asked to see the patient for hyponatremia. Patient currently has an Na level of 128, previously 119 and has a chronically low baseline. Patient is known to us from previous admissions. Chronic use of ETOH as mentioned above. Drinking about 24 beers a day per him. Poor protein intake daily is suspected. No use of thiazide diuretics, SSRIs or anti-epileptics. No known use of NSAIDs. Denies issues with UOP. No known head injury. Smokes cigars and marijuana as well. 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 Current Outpatient Medications on File Prior to Encounter Medication Sig Dispense Refill albuterol 108 (90 Base) MCG/ACT inhaler Inhale 1 puff every 4 hours as needed. alendronate (Fosamax) 70 MG tablet Take 70 mg by mouth once a week. amLODIPine (Norvasc) 2.5 MG tablet Take 2.5 mg by mouth in the morning. Bioflavonoid Products (Alana-C) tablet Every 24 hours. calcium carbonate (Tums) 500 MG chewable tablet Chew 1 tablet (500 mg) daily. Do not start before February 15, 2023. 30 tablet 11 cyanocobalamin (Vitamin B-12) 1000 MCG/ML injection 1 mL intramuscularly once a month dicyclomine (Bentyl) 20 MG tablet Take 1 tablet (20 mg) by mouth in the morning and 1 tablet (20 mg) at noon and 1 tablet (20 mg) in the evening. Take before meals. 90 tablet 1 famotidine (Pepcid) 20 MG tablet Take 1 tablet (20 mg) by mouth 2 times daily. 60 tablet 0 fluticasone (Flonase) 50 MCG/ACT nasal spray Administer 1 spray into each nostril daily as needed. folic acid (Folvite) 1 MG tablet Take 1 tablet (1 mg) by mouth daily. Do not start before April 16, 2023. 30 tablet 0 ipratropium-albuterol (Duo-Neb) 0.5-2.5 mg/3 mL nebulizer solution every 6 hours. ketoconazole (NIZOral) 2 % shampoo EVERY THREE DAYS levothyroxine (Synthroid, Levoxyl) 50 MCG tablet TAKE 1 TABLET BY MOUTH DAILY 30 tablet 0 losartan (Cozaar) 100 MG tablet Take 1 tablet (100 mg) by mouth daily. Do not start before February 15, 2023. 30 tablet 11 niacin 100 MG tablet Every 24 hours. nitroglycerin (Nitrostat) 0.4 MG SL tablet 1 tab(s) sublingually every 5 minutes x 3 doses prn PHENobarbital (Luminal) 64.8 MG tablet Take 1 tablet (64.8 mg) by mouth every 4 hours. 180 tablet 0 potassium chloride ER (Micro-K) 10 MEQ ER capsule Take 10 mEq by mouth in the morning. sodium chloride 1 g tablet Take 1 tablet (1 g) by mouth in the morning and 1 tablet (1 g) in the evening. Take with meals. 60 tablet 11 tamsulosin (Flomax) 0.4 MG 24 hr capsule Take 0.4 mg by mouth daily. thiamine (Vitamin B-1) 100 MG tablet Take 1 tablet (100 mg) by mouth daily. Do not start before April 16, 2023. 30 tablet 0 [DISCONTINUED] Lidocaine 4 % patch Place 1 patch on the skin daily. Do not start before April 16, 2023. 15 patch 0 [DISCONTINUED] oxyCODONE (Roxicodone) 10 MG immediate release tablet Take 10 mg by mouth in the morning and 10 mg at noon and 10 mg in the evening and 10 mg before bedtime. Allergies: Allopurinol, Codeine, and Penicillin g Social History: Social History Socioeconomic History Marital status: Spouse name: Not on file Number of children: Not on file Years of education: Not on file Highest education level: Not on file Occupational History Not on file Tobacco Use Smoking status: Every Day Types: Cigars Last attempt to quit: 1982 Years since quittin.7 Smokeless tobacco: Former Vaping Use Vaping Use: Every day Substances: CBD, canabis Devices: Disposable Substance and Sexual Activity Alcohol use: Yes Alcohol/week: 42.0 standard drinks of alcohol Types: 42 Cans of beer per week Comment: TALL BOY ARE DOUBLE BEERS 42 per week Drug use: Yes Types: Marijuana Comment: daily Sexual activity: Not on file Other Topics Concern Not on file Social History Narrative Not on file Social Determinants of Health Financial Resource Strain: Not on file Food Insecurity: Not on file Transportation Needs: No Transportation Needs (06/22/2023) PRAPARE - Transportation Lack of Transportation (Medical): No Lack of Transportation (Non-Medical): No Physical Activity: Inactive (04/03/2023) Exercise Vital Sign Days of Exercise per Week: 0 days Minutes of Exercise per Session: 0 min Stress: No Stress Concern Present (04/03/2023) [employer] [place] [employer] - Occupational Stress Questionnaire Feeling of Stress : Not at all Social Connections: Not on file Intimate Partner Violence: Not At Risk (06/22/2023) Humiliation, Afraid, Rape, and Kick questionnaire Fear of Current or Ex-Partner: No Emotionally Abused: No Physically Abused: No Sexually Abused: No Housing Stability: Low Risk (06/22/2023) Housing Stability Vital Sign Unable to Pay for Housing in the Last Year: No Number of Places Lived in the Last Year: 1 Unstable Housing in the Last Year: No Family History: Family History Problem Relation Name Age of Onset Depression Mother Depression Maternal Grandmother Review of Systems: Pertinent positives stated above in HPI. All other systems were reviewed and were negative. Physical exam: Constitutional: Vitals: 06/30/23 1730 06/30/23 2300 06/30/23 2306 07/01/23 0500 BP: (!) 148/87 131/69 131/81 Pulse: 79 83 86 98 Resp: 16 18 18 18 Temp: (!) 35.8 C (96.5 F) 36.8 C (98.2 F) 36.7 C (98.1 F) TempSrc: Temporal Oral Oral SpO2: 98% 97% 97% 98% CURRENT TEMPERATURE: Temp: 36.7 C (98.1 F) MAXIMUM TEMPERATURE OVER 24HRS: Temp (24hrs), Av.4 C (97.6 F), Min:35.8 C (96.5 F), Max:36.8 C (98.2 F) CURRENT PULSE: Heart Rate: 98 CURRENT BLOOD PRESSURE: BP: 131/81 24HR BLOOD PRESSURE RANGE: Systolic (24hrs), Av , Min:131 , Max:148 ; Diastolic (24hrs), Av, Min:69, Max:87 24HR INTAKE/OUTPUT: No intake or output data in the 24 hours ending 07/01/23920 Physical Exam: Appearance: NAD, awake, alert, cooperative to exam, malnourished+ Eyes: PERRLA, clear sclera ENT: hearing normal, no oral thrush, no erythema or exudate on hard or soft palate, tongue normal, dry mucus membranes Neck: supple, no JVD, no thyromegaly Respiratory: breathing unlabored, lungs CTA B/L anteriorly without w/r/r Cardiovascular: heart RRR without m/g/r, pedal pulses palpable Gastrointestinal: abdomen soft, non-tender, non-distended, normoactive bowel sounds. No masses or hernia. Musculoskeletal: normal muscle strength and tone, no edema of BLE Skin: warm and dry, no rash or wounds Neurologic: symmetric strength and sensation Psychiatric: alert and oriented to person/place/time, judgement and insight normal, memory intact, normal mood and range of affect Data: LIVER PROFILE: Recent Labs 06/30/23182807/01/23 0505 AST 83* 73* ALT 45 40 BILITOT 0.8 0.7 ALKPHOS 102 92 CBC: Recent Labs 06/30/23182807/01/23 0505 WBC 6.5 5.1 RBC 3.89* 3.60* HGB 13.0 12.2* HCT 36.9* 34.1* MCV 95.0 94.7 RDW 15.2* 15.1* PLT 256 242 BMP: Recent Labs 06/30/23182807/01/23 0505 NA 119* 128* K 4.3 4.0 CL 86* 95* CO2 19* 19* BUN 11 10 CREATININE 1.36* 1.19 BNP: No results for input(s): BNP in the last 72 hours. ABGs: No results found for: PH, PCO2, PO2, HCO3, O2SAT Nephro Labs: amLODIPine, 2.5 mg, Oral, Daily dicyclomine, 20 mg, Oral, TID AC enoxaparin, 40 mg, SubCUTAneous, Daily famotidine, 20 mg, Oral, BID folic acid, 1 mg, Oral, Daily influenza, 0.5 mL, IntraMUSCular, Prior to discharge ipratropium-albuterol, 3 mL, Nebulization, q6h levothyroxine, 50 mcg, Oral, qAM AC losartan, 100 mg, Oral, Daily PHENobarbital, 64.8 mg, Oral, Q4H potassium chloride, 10 mEq, Oral, Daily sodium chloride, 1 g, Oral, BID WC tamsulosin, 0.4 mg, Oral, Daily thiamine, 100 mg, Oral, Daily PRN medications: acetaminophen OR acetaminophen, fluticasone, LORazepam OR LORazepam OR LORazepam OR LORazepam OR LORazepam OR LORazepam OR LORazepam OR LORazepam, ondansetron ODT OR ondansetron, polyethylene glycol (PEG) 3350 No results for input(s): COLORU, CLARITYU, PH, PHUR, LABSPEC, GLUCOSEU, BLOODU, LEUKOCYTESUR, NITRITE, BILIRUBINUR, UROBILINOGEN, BACTERIA, AMORPHOUS, CASTS in the last 72 hours. No lab exists for component: PROTEINUA, KEYTONESU, RBCUA, WBCUA, CRYSTAL Imaging: reviewed Assessment: Acute hyponatremia 2/2 beer potomania +/- volume depletion from poor po intake 2. Acute NAGMA 3. ETOH abuse 4. Severe protein calorie malnutrition 5. Failure to thrive 6. Fall, multiple 7. HTN essential Plan: -Na 128 from 119, borderline overcorrection -High risk for ODS in the setting of ETOH abuse and low presenting Na level -Ur Na c/w volume depletion, agree with IVF as has been administered, will hold off on further IVF for now to prevent overcorrection -Fluid restriction: 1.8L for now -Encourage 3 meals a day high in protein -Need to control pain/vomiting with prn medications to suppress further ADH stimulation -Na rate of correction not to exceed >8mEq/L/day to prevent neurological sequelae, please notify nephrology if rate of rise is exceeding above parameters -Check bladder scan x1 for pvr -Expect HCO3 to improve on its own now that NS is not infusing -Needs outpatient assistance with alcohol cessation, recommend addiction med consult -All other care per primary team -We will follow closely with you Thank you for the consult and the opportunity to participate in the care of this patient. Please do not hesitate to call with any questions or concerns. Ophelia Ramos APRN, ANIMAL CONTROL SPECIALIST [facility], [facility] [phone] office Associated attestation - Kennedi Pérez MD - 07/01/2023 3:34 PM EDT Seen and examined. Agree with above A and p. Hyponatremia responding to volume. Borderline rapid overcorrection of Na, hold IVF. Periodic Na checks throughout the rest of the day to trend Na. Alcohol cessation counseling. [facility] 07-01-2023 History and physical note Department of Family Medicine Attending History and Physical CHIEF COMPLAINT: etoh abuse Reason for Admission: same History Obtained From: patient History of Present Illness Woody Ni is a 63 y.o. who presents to the emergency department with chief complaint of requesting detox and placement at rehab. He was just admitted for alcohol detox and then was placed at rehab because he was weak and unable to care for himself or walk. He has been drinking since leaving the rehab facility brought in by family now to try to again get admitted is having frequent falls at home and is likely a danger to himself. He apparently signed out AMA from [facility] and then started drinking again. 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 Nausea and vomiting 12/22/22-12/26/22 admitted at [facility] Pain management Sleep apnea noncompliant with device Past Surgical History: Past Surgical History: Procedure Laterality Date BACK SURGERY x 2 CHOLECYSTECTOMY LAMINECTOMY LAP,CHOLECYSTECTOMY (HISTORICAL) N/A 01/05/2023 WISDOM TOOTH EXTRACTION Medications Prior to Admission: (Not in a hospital admission) Allergies: Allopurinol, Codeine, and Penicillin g Social History: Social History Socioeconomic History Marital status: Tobacco Use Smoking status: Every Day Types: Cigars Last attempt to quit: 1983 Years since quittin.7 Smokeless tobacco: Former Vaping Use Vaping Use: Every day Substances: CBD, canabis Devices: Disposable Substance and Sexual Activity Alcohol use: Yes Alcohol/week: 42.0 standard drinks of alcohol Types: 42 Cans of beer per week Comment: TALL BOY ARE DOUBLE BEERS 42 per week Drug use: Yes Types: Marijuana Comment: daily Social Determinants of Health Transportation Needs: No Transportation Needs (06/22/2023) PRAPARE - Transportation Lack of Transportation (Medical): No Lack of Transportation (Non-Medical): No Physical Activity: Inactive (04/03/2023) Exercise Vital Sign Days of Exercise per Week: 0 days Minutes of Exercise per Session: 0 min Stress: No Stress Concern Present (04/03/2023) [employer] - Occupational Stress Questionnaire Feeling of Stress : Not at all Intimate Partner Violence: Not At Risk (06/22/2023) Humiliation, Afraid, Rape, and Kick questionnaire Fear of Current or Ex-Partner: No Emotionally Abused: No Physically Abused: No Sexually Abused: No Housing Stability: Low Risk (06/22/2023) Housing Stability Vital Sign Unable to Pay for Housing in the Last Year: No Number of Places Lived in the Last Year: 1 Unstable Housing in the Last Year: No Family History: Family History Problem Relation Name Age of Onset Depression Mother Depression Maternal Grandmother REVIEW OF SYSTEMS: Review of Systems 10 point ros negative except for HPI Objective Vitals: BP 131/81 Pulse 98 Temp 36.7 C (98.1 F) (Oral) Resp 18 SpO2 98% Physical Exam Pt is alert and oriented x 3 Heent wnl Heart regular Lungs ctab Abd benign Ext no edema Assessment/Plan Patient Active Problem List Diagnosis Osteoarthritis of spine with radiculopathy, lumbar region Essential hypertension Hyponatremia Diabetes (HCC) Hypovolemia Cirrhosis (HCC) Chronic alcoholic hepatitis Asthma Severe malnutrition (CMS/HCC) (HCC) Thyroid disease SHAYLA (obstructive sleep apnea) Lumbar stenosis Postural dizziness with presyncope HLD (hyperlipidemia) Hepatitis Intractable nausea and vomiting Chronic pain syndrome Complication of surgical procedure Intercostal pain Low back pain Mild recurrent major depression (HCC) Myalgia Right hip pain Shoulder joint pain Acute kidney injury (CMS/HCC) (HCC) [place] (acute kidney injury) (CMS/HCC) (HCC) Gallbladder sludge RUQ pain Acute on chronic cholecystitis 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) Severe alcohol use disorder (HCC) Alcohol withdrawal syndrome without complication (HCC) Alcohol abuse Alcoholism Frequent falls Chronic back pain Hyponatremia Cirrhoisis HTN Plan Admit to tele Consult renal Consult addiction med KACIE BENZ DO 07/01/23 9:04 AM [facility] 07-01-2023 History and physical note Department of Family Medicine Attending History and Physical CHIEF COMPLAINT: etoh abuse Reason for Admission: same History Obtained From: patient History of Present Illness Woody Ni is a 63 y.o. who presents to the emergency department with chief complaint of requesting detox and placement at rehab. He was just admitted for alcohol detox and then was placed at rehab because he was weak and unable to care for himself or walk. He has been drinking since leaving the rehab facility brought in by family now to try to again get admitted is having frequent falls at home and is likely a danger to himself. He apparently signed out AMA from [facility] and then started drinking again. 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 Nausea and vomiting 12/22/22-12/26/22 admitted at [facility] Pain management Sleep apnea noncompliant with device Past Surgical History: Past Surgical History: Procedure Laterality Date BACK SURGERY x 2 CHOLECYSTECTOMY LAMINECTOMY LAP,CHOLECYSTECTOMY (HISTORICAL) N/A 01/05/2023 WISDOM TOOTH EXTRACTION Medications Prior to Admission: (Not in a hospital admission) Allergies: Allopurinol, Codeine, and Penicillin g Social History: Social History Socioeconomic History Marital status: Tobacco Use Smoking status: Every Day Types: Cigars Last attempt to quit: 1982 Years since quittin.7 Smokeless tobacco: Former Vaping Use Vaping Use: Every day Substances: CBD, canabis Devices: Disposable Substance and Sexual Activity Alcohol use: Yes Alcohol/week: 42.0 standard drinks of alcohol Types: 42 Cans of beer per week Comment: TALL BOY ARE DOUBLE BEERS 42 per week Drug use: Yes Types: Marijuana Comment: daily Social Determinants of Health Transportation Needs: No Transportation Needs (06/22/2023) PRAPARE - Transportation Lack of Transportation (Medical): No Lack of Transportation (Non-Medical): No Physical Activity: Inactive (04/03/2023) Exercise Vital Sign Days of Exercise per Week: 0 days Minutes of Exercise per Session: 0 min Stress: No Stress Concern Present (04/03/2023) [employer] - Occupational Stress Questionnaire Feeling of Stress : Not at all Intimate Partner Violence: Not At Risk (06/22/2023) Humiliation, Afraid, Rape, and Kick questionnaire Fear of Current or Ex-Partner: No Emotionally Abused: No Physically Abused: No Sexually Abused: No Housing Stability: Low Risk (06/22/2023) Housing Stability Vital Sign Unable to Pay for Housing in the Last Year: No Number of Places Lived in the Last Year: 1 Unstable Housing in the Last Year: No Family History: Family History Problem Relation Name Age of Onset Depression Mother Depression Maternal Grandmother REVIEW OF SYSTEMS: Review of Systems 10 point ros negative except for HPI Objective Vitals: BP 131/81 Pulse 98 Temp 36.7 C (98.1 F) (Oral) Resp 18 SpO2 98% Physical Exam Pt is alert and oriented x 3 Heent wnl Heart regular Lungs ctab Abd benign Ext no edema Assessment/Plan Patient Active Problem List Diagnosis Osteoarthritis of spine with radiculopathy, lumbar region Essential hypertension Hyponatremia Diabetes (HCC) Hypovolemia Cirrhosis (HCC) Chronic alcoholic hepatitis Asthma Severe malnutrition (CMS/HCC) (HCC) Thyroid disease SHAYLA (obstructive sleep apnea) Lumbar stenosis Postural dizziness with presyncope HLD (hyperlipidemia) Hepatitis Intractable nausea and vomiting Chronic pain syndrome Complication of surgical procedure Intercostal pain Low back pain Mild recurrent major depression (HCC) Myalgia Right hip pain Shoulder joint pain Acute kidney injury (CMS/HCC) (HCC) [place] (acute kidney injury) (CMS/HCC) (HCC) Gallbladder sludge RUQ pain Acute on chronic cholecystitis 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) Severe alcohol use disorder (HCC) Alcohol withdrawal syndrome without complication (HCC) Alcohol abuse Alcoholism Frequent falls Chronic back pain Hyponatremia Cirrhoisis HTN Plan Admit to tele Consult renal Consult addiction med KACIE BENZ DO 07/01/23 9:04 AM documented in this encounter [facility] 06-30-2023 Note NOTE: This result is for medical treatment only. Analysis performed using non-forensic procedures. [facility] 06-30-2023 Emergency department Note Pt to CT Alea Okeefe RN 06/30/231747 [facility] 06-30-2023 Emergency department Note Pt to CT Alea Okeefe RN 06/30/231747 EMERGENCY DEPARTMENT ENCOUNTER Pt Name: Woody Ni Birthdate 1960 Date of evaluation: 06/30/2023 ED Provider: Steve Whitley MD CHIEF COMPLAINT Chief Complaint Patient presents with Fall HISTORY OF PRESENT ILLNESS (Location/Symptom, Timing/Onset, Context/Setting, Quality, Duration, Modifying Factors, Severity) Note limiting factors. I wore appropriate PPE for the entirety of this encounter. HPI Woody Ni is a 63 y.o. who presents to the emergency department with chief complaint of requesting detox and placement at rehab. He was just admitted for alcohol detox and then was placed at rehab because he was weak and unable to care for himself or walk. He has been drinking since leaving the rehab facility brought in by family now to try to again get admitted is having frequent falls at home and is likely a danger to himself. Nursing Notes were reviewed. Limitations to history: Outside historians: Significant other REVIEW OF SYSTEMS Review of Systems Pertinent positives and negatives as per HPI. 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 ALENDRONATE (FOSAMAX) 70 MG TABLET Take 70 mg by mouth once a week. AMLODIPINE (NORVASC) 2.5 MG TABLET Take 2.5 mg by mouth in the morning. BIOFLAVONOID PRODUCTS (ALANA-C) TABLET Every 24 hours. CALCIUM CARBONATE (TUMS) 500 MG CHEWABLE TABLET Chew 1 tablet (500 mg) daily. Do not start before February 15, 2023. CYANOCOBALAMIN (VITAMIN B-12) 1000 MCG/ML INJECTION 1 mL intramuscularly once a month DICYCLOMINE (BENTYL) 20 MG TABLET Take 1 tablet (20 mg) by mouth in the morning and 1 tablet (20 mg) at noon and 1 tablet (20 mg) in the evening. Take before meals. FAMOTIDINE (PEPCID) 20 MG TABLET Take 1 tablet (20 mg) by mouth 2 times daily. FLUTICASONE (FLONASE) 50 MCG/ACT NASAL SPRAY Administer 1 spray into each nostril daily as needed. FOLIC ACID (FOLVITE) 1 MG TABLET Take 1 tablet (1 mg) by mouth daily. Do not start before April 16, 2023. IPRATROPIUM-ALBUTEROL (DUO-NEB) 0.5-2.5 MG/3 ML NEBULIZER SOLUTION every 6 hours. KETOCONAZOLE (NIZORAL) 2 % SHAMPOO EVERY THREE DAYS LEVOTHYROXINE (SYNTHROID, LEVOXYL) 50 MCG TABLET TAKE 1 TABLET BY MOUTH DAILY LOSARTAN (COZAAR) 100 MG TABLET Take 1 tablet (100 mg) by mouth daily. Do not start before February 15, 2023. NIACIN 100 MG TABLET Every 24 hours. NITROGLYCERIN (NITROSTAT) 0.4 MG SL TABLET 1 tab(s) sublingually every 5 minutes x 3 doses prn PHENOBARBITAL (LUMINAL) 64.8 MG TABLET Take 1 tablet (64.8 mg) by mouth every 4 hours. POTASSIUM CHLORIDE ER (MICRO-K) 10 MEQ ER CAPSULE Take 10 mEq by mouth in the morning. SODIUM CHLORIDE 1 G TABLET Take 1 tablet (1 g) by mouth in the morning and 1 tablet (1 g) in the evening. Take with meals. TAMSULOSIN (FLOMAX) 0.4 MG 24 HR CAPSULE Take 0.4 mg by mouth daily. THIAMINE (VITAMIN B-1) 100 MG TABLET Take 1 tablet (100 mg) by mouth daily. Do not start before April 16, 2023. ALLERGIES Allopurinol, Codeine, and Penicillin g FAMILY HISTORY Family History Problem Relation Name Age of Onset Depression Mother Depression Maternal Grandmother SOCIAL HISTORY Social History Socioeconomic History Marital status: Tobacco Use Smoking status: Every Day Types: Cigars Last attempt to quit: 1983 Years since quittin.7 Smokeless tobacco: Former Vaping Use Vaping Use: Every day Substances: CBD, canabis Devices: Disposable Substance and Sexual Activity Alcohol use: Yes Alcohol/week: 42.0 standard drinks of alcohol Types: 42 Cans of beer per week Comment: TALL BOY ARE DOUBLE BEERS 42 per week Drug use: Yes Types: Marijuana Comment: daily Social Determinants of Health Transportation Needs: No Transportation Needs (06/22/2023) PRAPARE - Transportation Lack of Transportation (Medical): No Lack of Transportation (Non-Medical): No Physical Activity: Inactive (04/03/2023) Exercise Vital Sign Days of Exercise per Week: 0 days Minutes of Exercise per Session: 0 min Stress: No Stress Concern Present (04/03/2023) [employer] - Occupational Stress Questionnaire Feeling of Stress : Not at all Intimate Partner Violence: Not At Risk (06/22/2023) Humiliation, Afraid, Rape, and Kick questionnaire Fear of Current or Ex-Partner: No Emotionally Abused: No Physically Abused: No Sexually Abused: No Housing Stability: Low Risk (06/22/2023) Housing Stability Vital Sign Unable to Pay for Housing in the Last Year: No Number of Places Lived in the Last Year: 1 Unstable Housing in the Last Year: No SCREENINGS PHYSICAL EXAM ED Triage Vitals [06/30/23 1730] Temp Heart Rate Resp BP (!) 35.8 C (96.5 F) 79 16 (!) 148/87 SpO2 Temp Source Heart Rate Source Patient Position 98 % Temporal Monitor -- BP Location FiO2 (%) -- -- Physical Exam Vitals and nursing note reviewed. Constitutional: General: He is not in acute distress. Appearance: He is well-developed. Comments: Intoxicated but awake alert follows commands and can answer questions HENT: Head: Normocephalic and atraumatic. Eyes: Conjunctiva/sclera: Conjunctivae normal. Abdominal: Palpations: Abdomen is soft. Musculoskeletal: Comments: No significant pain on palpation of the CT or L-spine. No significant pain on palpation range of motion of the upper and lower extremities is able to ambulate without pain. Neurological: General: No focal deficit present. Mental Status: He is alert and oriented to person, place, and time. Comments: Moves all 4 extremities with equal strength no numbness throughout. Psychiatric: Mood and Affect: Mood normal. Behavior: Behavior normal. DIAGNOSTIC RESULTS Procedures/EKG: EKG was reviewed by myself. Physician EKG interpretation can be found in [facility] RADIOLOGY (Per Emergency Physician): Interpretation per the Radiologist below, if available at the time of this note: CT head wo IV contrast (Results Pending) CT cervical spine wo IV contrast (Results Pending) ED BEDSIDE ULTRASOUND: Performed by ED Physician - none LABS: Labs Reviewed SARS-COV-2 ANTIGEN CBC WITH AUTO DIFFERENTIAL COMPREHENSIVE METABOLIC PANEL DRUGS OF ABUSE ETHANOL All other labs were within normal range or not returned as of this dictation. EMERGENCY DEPARTMENT COURSE and DIFFERENTIAL DIAGNOSIS/MDM: Vitals: Vitals: 06/30/23 1730 BP: (!) 148/87 Pulse: 79 Resp: 16 Temp: (!) 35.8 C (96.5 F) TempSrc: Temporal SpO2: 98% Patient and family presenting requesting detox and placement as he is having numerous falls and analogies been drinking. He said Dr. Quezada sent him in for evaluation. Plan check labs CT of the head and neck given his frequent falls and if as he michael he still wants to do detox will try to get him readmitted. Diagnoses as of 06/30/231906 Hyponatremia Medications - No data to display REVAL: Patient has a sodium of 119 spoke with the ICU felt that given he is mentating probably okay for the floor which does seem reasonable with Dr. Benz is kind of to admit patient to her service he stable for admission. CRITICAL CARE TIME CONSULTS: None PROCEDURES: Unless otherwise noted below, none Procedures Patients symptoms are consistent with sepsis, severe sepsis, or septic shock (If yes use ".sepsiscoremeasure"): no FINAL IMPRESSION No diagnosis found. DISPOSITION PATIENT REFERRED TO: No follow-up provider specified. DISCHARGE MEDICATIONS: New Prescriptions No medications on file (Comment: Please note this report has been produced using speech recognition software and may contain errors related to that system including errors in grammar, punctuation, and spelling, as well as words and phrases that may be inappropriate. If there are any questions or concerns please feel free to contact the dictating provider for clarification.) Steve Whitley MD (electronically signed) Emergency Medicine Provider Steve Whitley MD 06/30/23 1739 Steve Whitley MD 06/30/231906 Pt presents with increasing falls. Was recently sent to [facility] where he left on his own. Pt admits to drinking a case of beer daily. States he is currently drunk. Pt has generalized bruising to whole body from previous falls. Visitor with pt states pt hit his head last night with fall, no LOC. Not on blood thinners. documented in this encounter [facility] 06-30-2023 Emergency department Triage note Pt presents with increasing falls. Was recently sent to [facility] where he left on his own. Pt admits to drinking a case of beer daily. States he is currently drunk. Pt has generalized bruising to whole body from previous falls. Visitor with pt states pt hit his head last night with fall, no LOC. Not on blood thinners. [facility] 06-30-2023 Physician Emergency department Note EMERGENCY DEPARTMENT ENCOUNTER Pt Name: Woody Ni Birthdate 1960 Date of evaluation: 06/30/2023 ED Provider: Steve Whitley MD CHIEF COMPLAINT Chief Complaint Patient presents with Fall HISTORY OF PRESENT ILLNESS (Location/Symptom, Timing/Onset, Context/Setting, Quality, Duration, Modifying Factors, Severity) Note limiting factors. I wore appropriate PPE for the entirety of this encounter. HPI Woody Ni is a 63 y.o. who presents to the emergency department with chief complaint of requesting detox and placement at rehab. He was just admitted for alcohol detox and then was placed at rehab because he was weak and unable to care for himself or walk. He has been drinking since leaving the rehab facility brought in by family now to try to again get admitted is having frequent falls at home and is likely a danger to himself. Nursing Notes were reviewed. Limitations to history: Outside historians: Significant other REVIEW OF SYSTEMS Review of Systems Pertinent positives and negatives as per HPI. 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 ALENDRONATE (FOSAMAX) 70 MG TABLET Take 70 mg by mouth once a week. AMLODIPINE (NORVASC) 2.5 MG TABLET Take 2.5 mg by mouth in the morning. BIOFLAVONOID PRODUCTS (ALANA-C) TABLET Every 24 hours. CALCIUM CARBONATE (TUMS) 500 MG CHEWABLE TABLET Chew 1 tablet (500 mg) daily. Do not start before February 15, 2023. CYANOCOBALAMIN (VITAMIN B-12) 1000 MCG/ML INJECTION 1 mL intramuscularly once a month DICYCLOMINE (BENTYL) 20 MG TABLET Take 1 tablet (20 mg) by mouth in the morning and 1 tablet (20 mg) at noon and 1 tablet (20 mg) in the evening. Take before meals. FAMOTIDINE (PEPCID) 20 MG TABLET Take 1 tablet (20 mg) by mouth 2 times daily. FLUTICASONE (FLONASE) 50 MCG/ACT NASAL SPRAY Administer 1 spray into each nostril daily as needed. FOLIC ACID (FOLVITE) 1 MG TABLET Take 1 tablet (1 mg) by mouth daily. Do not start before April 16, 2023. IPRATROPIUM-ALBUTEROL (DUO-NEB) 0.5-2.5 MG/3 ML NEBULIZER SOLUTION every 6 hours. KETOCONAZOLE (NIZORAL) 2 % SHAMPOO EVERY THREE DAYS LEVOTHYROXINE (SYNTHROID, LEVOXYL) 50 MCG TABLET TAKE 1 TABLET BY MOUTH DAILY LOSARTAN (COZAAR) 100 MG TABLET Take 1 tablet (100 mg) by mouth daily. Do not start before February 15, 2023. NIACIN 100 MG TABLET Every 24 hours. NITROGLYCERIN (NITROSTAT) 0.4 MG SL TABLET 1 tab(s) sublingually every 5 minutes x 3 doses prn PHENOBARBITAL (LUMINAL) 64.8 MG TABLET Take 1 tablet (64.8 mg) by mouth every 4 hours. POTASSIUM CHLORIDE ER (MICRO-K) 10 MEQ ER CAPSULE Take 10 mEq by mouth in the morning. SODIUM CHLORIDE 1 G TABLET Take 1 tablet (1 g) by mouth in the morning and 1 tablet (1 g) in the evening. Take with meals. TAMSULOSIN (FLOMAX) 0.4 MG 24 HR CAPSULE Take 0.4 mg by mouth daily. THIAMINE (VITAMIN B-1) 100 MG TABLET Take 1 tablet (100 mg) by mouth daily. Do not start before April 16, 2023. ALLERGIES Allopurinol, Codeine, and Penicillin g FAMILY HISTORY Family History Problem Relation Name Age of Onset Depression Mother Depression Maternal Grandmother SOCIAL HISTORY Social History Socioeconomic History Marital status: Tobacco Use Smoking status: Every Day Types: Cigars Last attempt to quit: 1982 Years since quittin.7 Smokeless tobacco: Former Vaping Use Vaping Use: Every day Substances: CBD, canabis Devices: Disposable Substance and Sexual Activity Alcohol use: Yes Alcohol/week: 42.0 standard drinks of alcohol Types: 42 Cans of beer per week Comment: TALL BOY ARE DOUBLE BEERS 42 per week Drug use: Yes Types: Marijuana Comment: daily Social Determinants of Health Transportation Needs: No Transportation Needs (06/22/2023) PRAPARE - Transportation Lack of Transportation (Medical): No Lack of Transportation (Non-Medical): No Physical Activity: Inactive (04/03/2023) Exercise Vital Sign Days of Exercise per Week: 0 days Minutes of Exercise per Session: 0 min Stress: No Stress Concern Present (04/03/2023) [employer] - Occupational Stress Questionnaire Feeling of Stress : Not at all Intimate Partner Violence: Not At Risk (06/22/2023) Humiliation, Afraid, Rape, and Kick questionnaire Fear of Current or Ex-Partner: No Emotionally Abused: No Physically Abused: No Sexually Abused: No Housing Stability: Low Risk (06/22/2023) Housing Stability Vital Sign Unable to Pay for Housing in the Last Year: No Number of Places Lived in the Last Year: 1 Unstable Housing in the Last Year: No SCREENINGS PHYSICAL EXAM ED Triage Vitals [06/30/23 1730] Temp Heart Rate Resp BP (!) 35.8 C (96.5 F) 79 16 (!) 148/87 SpO2 Temp Source Heart Rate Source Patient Position 98 % Temporal Monitor -- BP Location FiO2 (%) -- -- Physical Exam Vitals and nursing note reviewed. Constitutional: General: He is not in acute distress. Appearance: He is well-developed. Comments: Intoxicated but awake alert follows commands and can answer questions HENT: Head: Normocephalic and atraumatic. Eyes: Conjunctiva/sclera: Conjunctivae normal. Abdominal: Palpations: Abdomen is soft. Musculoskeletal: Comments: No significant pain on palpation of the CT or L-spine. No significant pain on palpation range of motion of the upper and lower extremities is able to ambulate without pain. Neurological: General: No focal deficit present. Mental Status: He is alert and oriented to person, place, and time. Comments: Moves all 4 extremities with equal strength no numbness throughout. Psychiatric: Mood and Affect: Mood normal. Behavior: Behavior normal. DIAGNOSTIC RESULTS Procedures/EKG: EKG was reviewed by myself. [facility] RADIOLOGY (Per Emergency Physician): Interpretation per the Radiologist below, if available at the time of this note: CT head wo IV contrast (Results Pending) CT cervical spine wo IV contrast (Results Pending) ED BEDSIDE ULTRASOUND: Performed by ED Physician - none LABS: Labs Reviewed SARS-COV-2 ANTIGEN CBC WITH AUTO DIFFERENTIAL COMPREHENSIVE METABOLIC PANEL DRUGS OF ABUSE ETHANOL All other labs were within normal range or not returned as of this dictation. EMERGENCY DEPARTMENT COURSE and DIFFERENTIAL DIAGNOSIS/MDM: Vitals: Vitals: 06/30/23 1730 BP: (!) 148/87 Pulse: 79 Resp: 16 Temp: (!) 35.8 C (96.5 F) TempSrc: Temporal SpO2: 98% Patient and family presenting requesting detox and placement as he is having numerous falls and analogies been drinking. He said Dr. Quezada sent him in for evaluation. Plan check labs CT of the head and neck given his frequent falls and if as he michael he still wants to do detox will try to get him readmitted. Diagnoses as of 06/30/23 190 Hyponatremia Medications - No data to display REVAL: Patient has a sodium of 119 spoke with the ICU felt that given he is mentating probably okay for the floor which does seem reasonable with Dr. Benz is kind of to admit patient to her service he stable for admission. CRITICAL CARE TIME CONSULTS: None PROCEDURES: Unless otherwise noted below, none Procedures Patients symptoms are consistent with sepsis, severe sepsis, or septic shock (If yes use ".sepsiscoremeasure"): no FINAL IMPRESSION No diagnosis found. DISPOSITION PATIENT REFERRED TO: No follow-up provider specified. DISCHARGE MEDICATIONS: New Prescriptions No medications on file (Comment: Please note this report has been produced using speech recognition software and may contain errors related to that system including errors in grammar, punctuation, and spelling, as well as words and phrases that may be inappropriate. If there are any questions or concerns please feel free to contact the dictating provider for clarification.) Steve Whitley MD (electronically signed) Emergency Medicine Provider Steve Whitley MD 06/30/23 1736 Steve Whitley MD 06/30/23 1904 [facility] 05-26-2023 Telephone encounter Note S: Patient's called to cancel appointment. B: Onset of symptoms/concern 05/26/2023 at 08;00 A: Pt has no transportation to appointment. R: Please call pt back at [phone] to reschedule. Appointment cancelled. Reason for Disposition General information question, no triage required and triager able to answer question Answer Assessment - Initial Assessment Questions 1. REASON FOR CALL or QUESTION: What is your reason for calling today?" or "How can I best help you?" or "What question do you have that I can help answer?" Cancel appointment for 05/26/2023 at 08:00 No transportation Protocols used: Information Only Call - No [id number] [facility] 05-26-2023 Miscellaneous Notes S: Patient's called to cancel appointment. B: Onset of symptoms/concern 05/26/2023 at 08;00 A: Pt has no transportation to appointment. R: Please call pt back at [phone] to reschedule. Appointment cancelled. Reason for Disposition General information question, no triage required and triager able to answer question Answer Assessment - Initial Assessment Questions 1. REASON FOR CALL or QUESTION: What is your reason for calling today?" or "How can I best help you?" or "What question do you have that I can help answer?" Cancel appointment for 05/26/2023 at 08:00 No transportation Protocols used: Information Only Call - No [id number] documented in this encounter [facility] 04-15-2023 History of Present illness Narrative Images from the original note were not included. Addiction Medicine Patient: Woody Ni Admit Date: 04/09/2023 Primary Care Physician: Jani Quezada History of Present Illness Patient continues to be monitored by chemical dependency services. He is stable from a detox perspective, and has not required any detoxification medications since admission. It is my understanding that the patient is being discharged today. Social History Socioeconomic History Marital status: Spouse name: Not on file Number of children: Not on file Years of education: Not on file Highest education level: Not on file Occupational History Not on file Tobacco Use Smoking status: Every Day Types: Cigars Last attempt to quit: 1982 Years since quittin.5 Smokeless tobacco: Former Vaping Use Vaping Use: Every day Substances: CBD, canabis Devices: Disposable Substance and Sexual Activity Alcohol use: Yes Alcohol/week: 42.0 standard drinks of alcohol Types: 42 Cans of beer per week Comment: TALL BOY ARE DOUBLE BEERS 42 per week Drug use: Yes Types: Marijuana Comment: daily Sexual activity: Not on file Other Topics Concern Not on file Social History Narrative Not on file Social Determinants of Health Financial Resource Strain: Not on file Food Insecurity: Not on file Transportation Needs: No Transportation Needs (04/03/2023) PRAPARE - Transportation Lack of Transportation (Medical): No Lack of Transportation (Non-Medical): No Physical Activity: Inactive (04/03/2023) Exercise Vital Sign Days of Exercise per Week: 0 days Minutes of Exercise per Session: 0 min Stress: No Stress Concern Present (04/03/2023) [employer] [place] [employer] - Occupational Stress Questionnaire Feeling of Stress : Not at all Social Connections: Not on file Intimate Partner Violence: Not At Risk (02/11/2023) Humiliation, Afraid, Rape, and Kick questionnaire Fear of Current or Ex-Partner: No Emotionally Abused: No Physically Abused: No Sexually Abused: No Housing Stability: Low Risk (04/03/2023) Housing Stability Vital Sign Unable to Pay for Housing in the Last Year: No Number of Places Lived in the Last Year: 1 Unstable Housing in the Last Year: No 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 Nausea and vomiting 12/22/22-12/26/22 admitted at [facility] Pain management Sleep apnea noncompliant with device Past Surgical History: Procedure Laterality Date BACK SURGERY x 2 CHOLECYSTECTOMY LAMINECTOMY LAP,CHOLECYSTECTOMY (HISTORICAL) N/A 01/05/2023 WISDOM TOOTH EXTRACTION Family History Problem Relation Name Age of Onset Depression Mother Depression Maternal Grandmother Labs Recent Results (from the past 48 hour(s)) Magnesium Collection Time: 04/13/23 11:56 PM Result Value Ref Range MAGNESIUM 1.8 1.6 - 2.3 mg/dL CBC Collection Time: 04/14/23 2:07 AM Result Value Ref Range Auto WBC 3.5 (L) 3.6 - 10.7 10*3/uL RBC 3.03 (L) 4.40 - 5.90 10*6/uL Hemoglobin 10.3 (L) 13.0 - 18.0 g/dL Hematocrit 29.8 (L) 40.0 - 52.0 % MCV 98.4 (H) 80.0 - 98.0 fL MCH 34.0 26.0 - 34.0 pg MCHC 34.6 32.0 - 36.0 % RDW 13.8 11.5 - 14.5 % Platelets 153 140 - 440 10*3/uL MPV 7.4 7.4 - 12.4 fL Comprehensive metabolic panel Collection Time: 04/14/23 2:07 AM Result Value Ref Range SODIUM 125 (L) 135 - 145 mmol/L POTASSIUM 3.7 3.5 - 5.1 mmol/L CHLORIDE 97 (L) 98 - 107 mmol/L CARBON DIOXIDE 21 (L) 22 - 30 mmol/L ANION GAP 7 3 - 13 mmol/L UREA NITROGEN 6 (L) 9 - 20 mg/dL CREATININE 0.77 0.66 - 1.25 mg/dL GLUCOSE 95 70 - 100 mg/dL CALCIUM 8.4 8.4 - 10.4 mg/dL AST (SGOT) 83 (H) 15 - 46 U/L ALT 61 (H) 0 - 49 U/L ALKALINE PHOSPHATASE 65 38 - 126 U/L ALBUMIN 3.5 3.5 - 5.0 g/dL BILIRUBIN, TOTAL 0.5 0.2 - 1.3 mg/dL TOTAL PROTEIN 6.2 (L) 6.3 - 8.2 g/dL eGFR >90.0 >60.0 mL/min/1.73m*2 CBC Collection Time: 04/15/23 3:59 AM Result Value Ref Range Auto WBC 4.3 3.6 - 10.7 10*3/uL RBC 3.11 (L) 4.40 - 5.90 10*6/uL Hemoglobin 10.6 (L) 13.0 - 18.0 g/dL Hematocrit 31.0 (L) 40.0 - 52.0 % MCV 99.9 (H) 80.0 - 98.0 fL MCH 34.2 (H) 26.0 - 34.0 pg MCHC 34.2 32.0 - 36.0 % RDW 14.1 11.5 - 14.5 % Platelets 185 140 - 440 10*3/uL MPV 7.7 7.4 - 12.4 fL Comprehensive metabolic panel Collection Time: 04/15/23 3:59 AM Result Value Ref Range SODIUM 129 (L) 135 - 145 mmol/L POTASSIUM 3.9 3.5 - 5.1 mmol/L CHLORIDE 100 98 - 107 mmol/L CARBON DIOXIDE 23 22 - 30 mmol/L ANION GAP 6 3 - 13 mmol/L UREA NITROGEN 6 (L) 9 - 20 mg/dL CREATININE 0.77 0.66 - 1.25 mg/dL GLUCOSE 105 (H) 70 - 100 mg/dL CALCIUM 8.8 8.4 - 10.4 mg/dL AST (SGOT) 87 (H) 15 - 46 U/L ALT 65 (H) 0 - 49 U/L ALKALINE PHOSPHATASE 58 38 - 126 U/L ALBUMIN 3.6 3.5 - 5.0 g/dL BILIRUBIN, TOTAL 0.4 0.2 - 1.3 mg/dL TOTAL PROTEIN 6.4 6.3 - 8.2 g/dL eGFR >90.0 >60.0 mL/min/1.73m*2 Medications Home Meds: Prior to Admission medications Medication Sig Start Date End Date Taking? Authorizing Provider acetaminophen (Tylenol) 325 MG tablet every 4 hours as needed. Historical Provider, albuterol (2.5 MG/3ML) 0.083% nebulizer solution Take 2.5 mg by nebulization 2 times daily as needed. PRN Historical Provider, albuterol 108 (90 Base) MCG/ACT inhaler Inhale 1 puff every 4 hours as needed. Historical Provider, alendronate (Fosamax) 70 MG tablet Take 70 mg by mouth once a week. 05/19/17 Historical Provider, amLODIPine (Norvasc) 2.5 MG tablet Take 2.5 mg by mouth in the morning. 05/27/17 Historical Provider, Bioflavonoid Products (Alana-C) tablet Every 24 hours. Historical Provider, calcium carbonate (Tums) 500 MG chewable tablet Chew 1 tablet (500 mg) daily. Do not start before February 15, 2023. 02/15/23 02/15/24 Kacie Benz DO cyanocobalamin (Vitamin B-12) 1000 MCG/ML injection 1 mL intramuscularly once a month Historical Provider, dicyclomine (Bentyl) 20 MG tablet Take 1 tablet (20 mg) by mouth in the morning and 1 tablet (20 mg) at noon and 1 tablet (20 mg) in the evening. Take before meals. 11/07/22 11/07/23 Beryl Holder PA-C famotidine (Pepcid) 20 MG tablet Take 1 tablet (20 mg) by mouth 2 times daily. 04/15/23 04/14/24 Ced Koenig MD fluticasone (Flonase) 50 MCG/ACT nasal spray Administer 1 spray into each nostril daily as needed. 04/27/17 Historical ProviderMD folic acid (Folvite) 1 MG tablet Take 1 tablet (1 mg) by mouth daily. Do not start before April 16, 2023. 04/16/23 04/15/24 Ced Koenig MD ipratropium (Atrovent) 0.02 % nebulizer solution PRN 05/04/17 Historical Provider, ipratropium-albuterol (Duo-Neb) 0.5-2.5 mg/3 mL nebulizer solution every 6 hours. Historical Provider, ketoconazole (NIZOral) 2 % shampoo EVERY THREE DAYS 11/18/19 Historical Provider, levothyroxine (Synthroid, Levoxyl) 50 MCG tablet TAKE 1 TABLET BY MOUTH DAILY 06/06/22 06/06/23 Nicolas Qiu Lidocaine 4 % patch Place 1 patch on the skin daily. Do not start before April 16, 2023. 04/16/23 Ced Koenig MD losartan (Cozaar) 100 MG tablet Take 1 tablet (100 mg) by mouth daily. Do not start before February 15, 2023. 02/15/23 02/15/24 Kacie Benz DO niacin 100 MG tablet Every 24 hours. Historical ProviderMD nitroglycerin (Nitrostat) 0.4 MG SL tablet 1 tab(s) sublingually every 5 minutes x 3 doses prn Historical ProviderMD ondansetron (Zofran) 4 MG tablet Every 24 hours. Historical Provider, ondansetron ODT (Zofran-ODT) 4 MG disintegrating tablet Take 1 tablet (4 mg) by mouth every 8 hours as needed for nausea or vomiting for up to 7 days. 04/15/23 04/22/23 Ced Koenig MD oxyCODONE (Roxicodone) 10 MG immediate release tablet Take 10 mg by mouth in the morning and 10 mg at noon and 10 mg in the evening and 10 mg before bedtime. 05/29/17 Historical ProviderMD pantoprazole (ProtoNix) 40 MG EC tablet Take 40 mg by mouth daily. Historical Provider, potassium chloride ER (Micro-K) 10 MEQ ER capsule Take 10 mEq by mouth in the morning. 03/30/17 Historical ProviderMD sodium chloride 1 g tablet Take 1 tablet (1 g) by mouth in the morning and 1 tablet (1 g) in the evening. Take with meals. 02/14/23 02/14/24 Kacie Benz DO tamsulosin (Flomax) 0.4 MG 24 hr capsule Take 0.4 mg by mouth daily. 01/27/22 Historical ProviderMD thiamine (Vitamin B-1) 100 MG tablet Take 1 tablet (100 mg) by mouth daily. Do not start before April 16, 2023. 04/16/23 Ced Koenig MD Inpatient Scheduled Meds: amLODIPine, 2.5 mg, Oral, Daily calcium carbonate, 500 mg, Oral, Daily dicyclomine, 20 mg, Oral, TID AC famotidine, 20 mg, Oral, BID folic acid, 1 mg, Oral, Daily levothyroxine, 50 mcg, Oral, qAM AC Lidocaine, 2 patch, TransDERmal, Daily losartan, 100 mg, Oral, Daily sodium chloride, 1 g, Oral, BID WC tamsulosin, 0.4 mg, Oral, Daily Thiamine Mononitrate, 100 mg, Oral, Daily Inpatient PRN Meds: PRN medications: albuterol, loperamide, ondansetron ODT OR ondansetron, oxyCODONE, polyethylene glycol (PEG) 3350 Exam Vitals: 04/14/23 0738 04/14/23 1529 04/14/23 1945 04/15/23 0746 BP: (!) 156/85 (!) 154/92 (!) 144/92 (!) 142/88 BP Location: Left arm Left arm Left arm Patient Position: Sitting Sitting Sitting Pulse: 87 85 84 82 Resp: 18 18 20 18 Temp: 36.4 C (97.5 F) 36.1 C (97 F) (!) 35.8 C (96.5 F) 36.2 C (97.2 F) TempSrc: Temporal Temporal Temporal Temporal SpO2: 99% 100% 99% 100% Weight: Height: Physical Exam He is sitting in the day chair. He is not flushed or diaphoretic. Pleasant, cooperative. Oriented x4. No tremors. No auditory, tactile or visual disturbances Assessment & Plan Patient discharged to home. I will be contacting the patient in reference to a possible outpatient virtual chemical dependency program which is offered via the [facility]. FLAVIO SHERMAN MD Addiction Medicine 04/15/2023 at 12:03 PM -35- minutes were spent reviewing the patient's records, evaluating the patient, entering orders, coordinating care with the treatment team, and creating a progress note. Narrative portions of the note are written utilizing [employer] software. While every effort is made to dictate clearly and proofread, errors in the dictation may still occur. If there are any questions regarding the dictation please do not hesitate to contact the author. [facility] Progress Note Subjective/ 63 y.o. year old male who we are seeing in consultation for hyponatremia. NAEON Appetite better yesterday Drinking ensures TID Good urine output. BP stable. No SOB. ROS otherwise negative. No change in PFSh. Objective/ Vitals: 04/14/23 0738 04/14/23 1529 04/14/23 1945 04/15/23 0746 BP: (!) 156/85 (!) 154/92 (!) 144/92 (!) 142/88 BP Location: Left arm Left arm Left arm Patient Position: Sitting Sitting Sitting Pulse: 87 85 84 82 Resp: 18 18 20 18 Temp: 36.4 C (97.5 F) 36.1 C (97 F) (!) 35.8 C (96.5 F) 36.2 C (97.2 F) TempSrc: Temporal Temporal Temporal Temporal SpO2: 99% 100% 99% 100% Weight: Height: 24HR INTAKE/OUTPUT: Intake/Output Summary (Last 24 hours) at 04/15/2023 1058 Last data filed at 04/14/2023 1100 Gross per 24 hour Intake 320 ml Output -- Net 320 ml Constitutional: Alert, awake, no apparent distress Head: AT NC Neck: No JVD, no thyromegaly Cardiovascular: S1, S2 without m/r/g Respiratory: CTA B without w/r/r Abdomen: soft, nt Ext: 1+ B/L pitting LE edema amLODIPine, 2.5 mg, Oral, Daily calcium carbonate, 500 mg, Oral, Daily dicyclomine, 20 mg, Oral, TID AC famotidine, 20 mg, Oral, BID folic acid, 1 mg, Oral, Daily levothyroxine, 50 mcg, Oral, qAM AC Lidocaine, 2 patch, TransDERmal, Daily losartan, 100 mg, Oral, Daily sodium chloride, 1 g, Oral, BID WC tamsulosin, 0.4 mg, Oral, Daily Thiamine Mononitrate, 100 mg, Oral, Daily PRN medications: albuterol, loperamide, ondansetron ODT OR ondansetron, oxyCODONE, polyethylene glycol (PEG) 3350 Data/ Recent Labs 04/13/23 0327 04/14/23 0207 04/15/23 0359 WBC 3.1* 3.5* 4.3 HGB 10.3* 10.3* 10.6* HCT 29.7* 29.8* 31.0* MCV 99.2* 98.4* 99.9* PLT 145 153 185 Recent Labs 04/13/23 0327 04/13/23 2356 04/14/23 0207 04/15/23 0359 NA 127* -- 125* 129* K 3.5 -- 3.7 3.9 CL 99 -- 97* 100 CO2 24 -- 21* 23 GLUCOSE 91 -- 95 105* MG 0.9* 1.8 -- -- BUN 8* -- 6* 6* CREATININE 0.76 -- 0.77 0.77 Assessment/ Acute on chronic hyponatremia is multifactorial 2/2 intravascular volume depletion from vomiting/diarrhea vs ADH stimulus from nausea/pain vs hypervolemic hyponatremia from liver disease +/- beer potomania 2. Alcoholic cirrhosis of the liver 3. Protein calorie malnutrition 4. ETOH abuse 5. Pain disorder 6. Pancytopenia 7. 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 Hx of hepatitis C 9. Acute hypomagnesemia Plan/ Na better s/p 500 mL IVF Eating better too yesterday and today Nausea+, likely contributing to ADH stimulus Need to control nausea/pain with prns outpatient to prevent readmission Encourage po protein intake, educated about protein rich foods Maintain FR 1.2 L/day and po protein goal of 1gm/kg/day Renal function at baseline, suspect some component of falsely low scr in the setting of poor muscle mass Cannot increase NaCl tabs due to worsening BP Patient is not a candidate for tolvaptan 2/2 liver decompensation Mg stable s/p supplement yesterday 04/13 Tolerating H2 barbara, keep off PPI if possible 2/2 hypomagnesemia D/w Dr Koenig [facility] [place] further changes Ok for discharge planning from renal standpoint, outpatient BMP ordered and needs close follow up with nephrology in 1 week Will follow. Thank you for the consult and the opportunity to participate in the care of this patient. Please do not hesitate to call with any questions or concerns. Ophelia Ramos APRN, ANIMAL CONTROL SPECIALIST [facility], [facility] [phone] office [facility] Neph[facility] Progress Note Subjective/ 63 y.o. year old male who we are seeing in consultation for hyponatremia. NAEON Not eating solid food Having nausea whenever he eats solid food Drinking ensures TID Good urine output. BP stable. No SOB. ROS otherwise negative. No change in PFSh. Objective/ Vitals: 04/13/23 0744 04/13/23 1540 04/13/23 2122 04/14/23 0738 BP: 124/79 133/80 (!) 152/91 (!) 156/85 BP Location: Left arm Left arm Left arm Left arm Patient Position: Sitting Lying Lying Sitting Pulse: 87 78 81 87 Resp: 18 18 18 18 Temp: 36.9 C (98.5 F) 36.6 C (97.8 F) 36.5 C (97.7 F) 36.4 C (97.5 F) TempSrc: Temporal Temporal Temporal Temporal SpO2: 96% 97% 99% 99% Weight: Height: 24HR INTAKE/OUTPUT: Intake/Output Summary (Last 24 hours) at 04/14/2023 1355 Last data filed at 04/14/2023 1100 Gross per 24 hour Intake 520 ml Output 50 ml Net 470 ml Constitutional: Alert, awake, no apparent distress Head: AT NC Neck: No JVD, no thyromegaly Cardiovascular: S1, S2 without m/r/g Respiratory: CTA B without w/r/r Abdomen: soft, nt Ext: 1+ B/L pitting LE edema amLODIPine, 2.5 mg, Oral, Daily calcium carbonate, 500 mg, Oral, Daily dicyclomine, 20 mg, Oral, TID AC famotidine, 20 mg, Oral, BID folic acid, 1 mg, Oral, Daily levothyroxine, 50 mcg, Oral, qAM AC Lidocaine, 2 patch, TransDERmal, Daily losartan, 100 mg, Oral, Daily sodium chloride, 1 g, Oral, BID WC tamsulosin, 0.4 mg, Oral, Daily Thiamine Mononitrate, 100 mg, Oral, Daily sodium chloride, 100 mL/hr PRN medications: albuterol, loperamide, ondansetron ODT OR ondansetron, oxyCODONE, polyethylene glycol (PEG) 3350 sodium chloride, 100 mL/hr Data/ Recent Labs 04/12/23 0442 04/13/23 0327 04/14/23 0207 WBC 3.1* 3.1* 3.5* HGB 9.8* 10.3* 10.3* HCT 27.9* 29.7* 29.8* MCV 99.1* 99.2* 98.4* PLT 134* 145 153 Recent Labs 04/12/23 0442 04/13/23 0327 04/13/23 2356 04/14/23 0207 NA 131* 127* -- 125* K 3.6 3.5 -- 3.7 CL 104 99 -- 97* CO2 24 24 -- 21* GLUCOSE 97 91 -- 95 MG -- 0.9* 1.8 -- BUN 8* 8* -- 6* CREATININE 0.90 0.76 -- 0.77 Assessment/ Acute on chronic hyponatremia is multifactorial 2/2 intravascular volume depletion from vomiting/diarrhea vs ADH stimulus from nausea/pain vs hypervolemic hyponatremia from liver disease +/- beer potomania 2. Alcoholic cirrhosis of the liver 3. Protein calorie malnutrition 4. ETOH abuse 5. Pain disorder 6. Pancytopenia 7. 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 Hx of hepatitis C 9. Acute hypomagnesemia Plan/ Na continues to worsen Not eating solid food d/t nausea Nausea+, likely contributing to ADH stimulus Need to control nausea/pain with prns Will give 500 mL NS to gauge response Encourage po protein intake, educated about protein rich foods Maintain FR 1.2 L/day. Protein goal of 1gm/kg/day Renal function okay Cannot increase NaCl tabs due to worsening BP Patient is not a candidate for tolvaptan 2/2 liver decompensation Mg stable s/p supplement yesterday 04/13 Tolerating H2 barbara, keep off PPI if possible 2/2 hypomagnesemia D/w Dr Maldonado LOC[facility] No further changes Will follow. Thank you for the consult and the opportunity to participate in the care of this patient. Please do not hesitate to call with any questions or concerns. Ophelia Ramos, LEAH, ANIMAL CONTROL SPECIALIST [facility], [facility] [phone] office Associated attestation - Kennedi Pérez MD - 04/14/2023 4:52 PM EDT I have reviewed the above assessment and plan with the [facility]. I agree with above note. Hyponatremia +, worsening. Needs to eat more and have nausea controlled. NS x 500 ml today. Will not increase sodium tablets as that will worsen BP and volume status Okay to dc from renal standpoint as well as nausea will be taken care of outpatient. Complicated MDM. Images from the original note were not included. Hospitalist Progress Note 04/14/[id number]: Please secure chat me for patient care issues. [phone]: Please secure chat [facility] Hospitalist for any issues. Subjective: Admit Date: 04/09/2023 PCP: Jani Quezada Room#: [id number] A Chief complaint: poor oral intake Interval History: Poor oral intake. Nausea +, no vomiting. Afebrile. No abdominal pain. 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 Nausea and vomiting 12/22/22-12/26/22 admitted at [facility] Pain management Sleep apnea noncompliant with device LABS: CBC: Recent Labs 04/12/23 0442 04/13/23 0327 04/14/23 0207 WBC 3.1* 3.1* 3.5* RBC 2.82* 2.99* 3.03* HGB 9.8* 10.3* 10.3* HCT 27.9* 29.7* 29.8* MCV 99.1* 99.2* 98.4* RDW 14.0 13.7 13.8 PLT 134* 145 153 BMP: Recent Labs 04/12/23 0442 04/13/23 0327 04/14/23 0207 NA 131* 127* 125* K 3.6 3.5 3.7 CL 104 99 97* CO2 24 24 21* BUN 8* 8* 6* CREATININE 0.90 0.76 0.77 GLUCOSE 97 91 95 CALCIUM 8.2* 7.9* 8.4 ANIONGAP 4 4 7 LIVER PROFILE: Recent Labs 04/12/23 0442 04/13/23 0327 04/14/23 0207 AST 75* 67* 83* ALT 50* 46 61* BILITOT 0.3 0.5 0.5 ALKPHOS 59 47 65 PROT 5.8* 5.7* 6.2* PT/INR: No results for input(s): PROTIME, INR in the last 72 hours. CARDIAC ENZYMES: No results for input(s): TROPONINI in the last 72 hours. Procalcitonin: No results found for: PROCAL COVID-19 PCR: No results for input(s): COVID19 in the last 72 hours. Objective: Vitals: BP (!) 156/85 (BP Location: Left arm, Patient Position: Sitting) Pulse 87 Temp 36.4 C (97.5 F) (Temporal) Resp 18 Ht 5' 10" (1.778 m) Wt 160 lb (72.6 kg) SpO2 99% BMI 22.96 kg/m Pulse Ox: SpO2 Av.3 % Min: 97 % Max: 99 % Physical Exam Constitutional: Appearance: Normal appearance. Cardiovascular: Rate and Rhythm: Normal rate and regular rhythm. Pulses: Normal pulses. Heart sounds: Normal heart sounds. Pulmonary: Effort: Pulmonary effort is normal. Breath sounds: Normal breath sounds. Abdominal: General: Bowel sounds are normal. Palpations: Abdomen is soft. Musculoskeletal: Right lower leg: No edema. Left lower leg: No edema. Neurological: General: No focal deficit present. Mental Status: He is alert and oriented to person, place, and time. Psychiatric: Mood and Affect: Mood normal. Medications: amLODIPine, 2.5 mg, Oral, Daily calcium carbonate, 500 mg, Oral, Daily dicyclomine, 20 mg, Oral, TID AC famotidine, 20 mg, Oral, BID folic acid, 1 mg, Oral, Daily levothyroxine, 50 mcg, Oral, qAM AC Lidocaine, 2 patch, TransDERmal, Daily losartan, 100 mg, Oral, Daily sodium chloride, 1 g, Oral, BID WC tamsulosin, 0.4 mg, Oral, Daily Thiamine Mononitrate, 100 mg, Oral, Daily Assessment Acute hyponatremia/SIADH due to excess ethanol intake DENNYS due to dehydration Elevated LFT due to alcohol liver disease Status post liver biopsy December 2022 Acute diarrhea causing volume depletion/dehydration-stool studies negative History of hepatitis C Thrombocytopenia due to liver disease Chronic problems: 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 Hypertension Anxiety and depression Obstructive sleep apnea on Pap noncompliant Gastroesophageal reflux disease Anemia, stable H/H , no overt bleeding Mild leucopenia Medical Decision Making Seen and examined. Feels weak, Sodium down to 125 today- will discuss with nephrology. Still poor oral intake. Labs in am. -am labs, replace lytes prn -increase activity -DVT prophylaxis: [] Lovenox [] Heparin [] SCDs [x] Encourage ambulation [] Already on Anticoagulation Anticipated Discharge - Date -04/15 - Location - if serum NA improves, home - Pending the following - clinical improvement Total time spent (which include face to face and non face to face encounters) : 35 minutes Toxic drug monitoring/narrow therapeutic index drug monitoring : # Drug name : # Route administered : # Method of monitoring : Extended Emergency Contact Information Primary Emergency Contact: Kingsley Carl Relation: Spouse Ced Koenig MD Division of Hospitalist Medicine Acute care [facility] PAGER: Epic chat Occupational Therapy Facility/Department: 2E Occupational Therapy Initial Evaluation NAME: Woody Ni : 1960 Date of Service: 04/13/2023 Discharge Recommendations: Home with assist PRN Assessment REQUIRES OT FOLLOW-UP: No No Skilled OT: Independent with ADL's, Independent with functional mobility, At baseline function, No OT goals identified Assessment: Pt admitted to ED on 04/09 with poor P.O intake, nausea, vomiting, and abdominal pain. Pt found to have tachycardia and HTN and was dx with hyponatremia d/t dehydration. Prior to admission, pt lived with his S/O and required assist for LB ADls. Pt walks minimally in the house with a cane. Upon eval, pt able to perform functional mobility and transfers with Mod I. Pt with no concerns for ADL performance and is at baseline with Mod I for UB and Min A for LB. No acute OT needs identified. Rec home with PRN assist. Prognosis: Good Decision Making: Low Complexity Exam: AM-PAC Assistance / Modification: Mod I Activity Tolerance Activity Tolerance: Patient Tolerated treatment well Patient Diagnosis(es): The encounter diagnosis was Hyponatremia. 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 has a past surgical history that includes Back surgery; Laminectomy; [place] tooth extraction; lap,cholecystectomy (historical) (N/A, 01/05/2023); and Cholecystectomy. Restrictions Restrictions/Precautions Restrictions/Precautions: General Precautions, Fall Risk (CIWA) Required Braces or Orthoses?: No Vision/Hearing Vision: Within Functional Limits Hearing: Functional/adequate for paticipation in therapy Cognition/Orientation Overall Cognitive Status: WFL Overall Orientation Status: Within Normal Limits Subjective General Chart Reviewed: Yes Patient Assessed for Rehabilitation Services: Yes Family / Caregiver Present: Yes (S/O) Subjective Subjective: Pt stating that he is on disability and can't do much but was agreeable to therapy with encouragement. General Comments Comments: Per RN, pt Ok to see Patient Stated Goal: to go home Pain Assessment Pain Assessment: 0-10 Pain Score: 9 Pain Type: Acute pain Pain Location: Back Social/Functional History Social/Functional History Lives With: Spouse Type of Home: House Home Layout: Two level, Able to Live on Main level with bedroom/bathroom Home Access: Stairs to enter without rails Entrance Stairs - Number of Steps: 1 Bathroom Shower/Tub: Tub/Shower unit, Shower chair with back Bathroom Toilet: Standard Bathroom Equipment: Grab bars in shower Bathroom Accessibility: Accessible ADL Assistance: Needs assistance Homemaking Assistance: Needs assistance Homemaking Responsibilities: No Ambulation Assistance: Independent With device?: Yes Device: small base quad cane Transfer Assistance: Independent Active Environmental Field Office Manager: No Occupation: On disability Objective Gross Assessment: Yes AROM: Generally decreased, functional PROM: Generally decreased, functional Strength: Generally decreased, functional Coordination: Generally decreased, functional Tone: Normal Sensation: Impaired (reports diabetic neuropathy) Observation/Palpation Posture: Fair Observation: forward bent posture; PIV intact Balance Sitting Balance: Modified independent Standing Balance: Modified independent Standing Balance Time: ~ 20 seconds Activity: static standing Comment: Pt stood at EOB with Mod I for balance using IV pole for steadying support. Pt with hunched posture. Functional Mobility Functional - Mobility Device: No device Activity: Other Assist Level: Modified independent Functional Mobility Comments: Pt able to walk a moderate distance in the [place] with no AD, however he used the IV pole for steadying support and managed it himself. Pt with a hunched posture and general unsteadiness at times but no true LOB observed. Pt reports this distance to be his baseline ADL Feeding: Modified independent Grooming: Modified independent UE Bathing: Modified independent LE Bathing: Minimal assistance UE Dressing: Modified independent LE Dressing: Minimal assistance Toileting: Modified independent Additional Comments: Pt able to perform UB ADls with Mod I. Can perform bathroom level toileting. Min A for LB ADls which he reports is his baseline. pt declined to learn the AE to improve independence. Bed mobility Supine to Sit: Modified independent Sit to Supine: Modified independent Scooting: Modified independent Comment: Pt completed with Mod I. HOB slightly elevated. denied dizziness. Transfers Sit to stand: Modified independent Stand to sit: Modified independent Transfer Comments: Pt able to perform transfers with mod I. He used the IV pole for steadying support. Plan Times per Week: OT eval only Plan Comment: POC established in collaboration with pt Safety Safety Devices in place: Yes Type of devices: Left in bed, Nurse notified, Call light within reach AM-PAC Score AM-PAC Inpatient Daily Activity Raw Score: 22 ADL Inpatient CMS G-Code Modifier: CJ Goals No goals Education Education Given To: Patient, Family Education Provided: OT role, Plan of care, Discharge recommendations Education Method: Verbal Barriers to Learning: None Education Outcome: Verbalized understanding Therapy Time Individual Co-treatment Time In 1305 Time Out 1314 Minutes 9 Unique Griffin OT Physical Therapy Facility/Department: [facility] Physical Therapy Initial Evaluation NAME: Woody Ni : 1960 Date of Service: 04/13/2023 Discharge Recommendations: Home with assist PRN PT Equipment Recommendations Equipment Needed: No Assessment Requires PT Follow-Up: No Assessment: Pt admitted 04/09 with poor PO intake, abdominal pain, nausea and vomiting. Pt recently admitted for alcohol detox and left for a family event. Pt found to have hypertension, tachycardia and hyponatremia. On evaluation patient completed all mobility MOD I and ambulates with UE support. Pt states he is currently at baseline LOF and has no concerns for returning home. Pt declining [facility] PT services. Will discharge at this time due to no acute needs. Decision Making: Low Complexity History: PMH listed below. Exam: AM-PAC Clinical Presentation: Pt has PMH as indicated below that contributes to his clinical presentation. Barriers to Learning: none Barriers to Learning: none Activity Tolerance Activity Tolerance: Patient Tolerated treatment well Patient Diagnosis(es): The encounter diagnosis was Hyponatremia. has a past medical history of Acid reflux, Alcoholism (CMS/HCC) (HCC), Anxiety, Back pain, Chronic pain syndrome, Cirrhosis (HCC), Dehydration, Depression, Diabetes mellitus (HCC), Gout, Hepatitis C, Hypertension, Hyponatremia, 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, 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, Nausea and vomiting, Pain management, and Sleep apnea. has a past surgical history that includes Back surgery; Laminectomy; [place] tooth extraction; lap,cholecystectomy (historical) (N/A, 01/05/2023); and Cholecystectomy. Restrictions Restrictions/Precautions Restrictions/Precautions: General Precautions, Fall Risk (CIWA) Required Braces or Orthoses?: No Vision/Hearing Vision: Within Functional Limits Hearing: Functional/adequate for paticipation in therapy Cognition/Orientation Overall Cognitive Status: WFL Overall Orientation Status: Within Normal Limits Subjective General Chart Reviewed: Yes Patient Assessed for Rehabilitation Services: Yes Family / Caregiver Present: Yes () Follows Commands: Within Functional Limits General Comment Comments: Per RN patient okay for therapy Subjective Subjective: Pt lying in bed and agreeable to therapy Patient Stated Goal: To return home. Pain Assessment Pain Assessment: 0-10 Pain Score: 9 Pain Type: Chronic pain Pain Location: Back Pain Orientation: Lower Pain Descriptors: Aching Pain Interventions: Ambulation/increased activity, Repositioned Social/Functional History Social/Functional History Lives With: Spouse Type of Home: House Home Layout: Two level, Able to Live on Main level with bedroom/bathroom Home Access: Stairs to enter without rails Entrance Stairs - Number of Steps: 1 Bathroom Shower/Tub: Tub/Shower unit, Shower chair with back Bathroom Toilet: Standard Bathroom Equipment: Grab bars in shower Bathroom Accessibility: Accessible ADL Assistance: Needs assistance Homemaking Assistance: Needs assistance Homemaking Responsibilities: No Ambulation Assistance: Independent With device?: Yes Device: small base quad cane Transfer Assistance: Independent Active Environmental Field Office Manager: No Occupation: On disability Objective Observation/Palpation Posture: Fair Observation: forward bent posture; PIV intact Gross Assessment: Yes AROM: Generally decreased, functional PROM: Generally decreased, functional Strength: Generally decreased, functional Coordination: Generally decreased, functional Tone: Normal Sensation: Impaired (chronic neuropathy in bilateral feet) Bed mobility Supine to Sit: Modified independent Sit to Supine: Modified independent Scooting: Modified independent Comment: HOB slightly elevated. Denies dizziness. No assist needed. Transfers Sit to Stand: Modified independent Stand to sit: Modified independent Comment: from EOB to one UE support. Denies dizziness in standing. No acute LOB noted. Ambulation Ambulation: Yes Ambulation 1 Surface 1: Level tile Device 1: No device (UE support on IV pole) Assistance 1: Mod independent Quality of Gait 1: equal step length, reciprocal stepping, slow hiede Quality of Gait Comment 1: forward bent posture due to chronic LBP Distance (ft) 1: ~100'x1 Comments 1: Pt completed with slow heide and c/o chronic LBP. No acute LOB or unsteadiness noted. No increase in SOB. Balance Posture: Fair Sitting - Static: Good Sitting - Dynamic: Good Standing - Static: Good Standing - Dynamic: Good, - Plan Times per Week: eval only Safety Safety Devices Safety Devices in Place: Yes Type of Devices: All fall risk precautions in place, Call light within reach, Left in bed, Nurse notified AM-PAC Score AM-PAC Inpatient Mobility Raw Score (No Stairs) : 20 Goals Eval only Education Education Given To: Patient Education Provided: PT Role, Plan of Care, Energy Conservation Education Method: Verbal Barriers to Learning: None Education Outcome: Verbalized understanding Therapy Time Individual Co-treatment Time In 1305 Time Out 1314 Minutes 9 Krystle Bull PT [facility] Progress Note Subjective/ 63 y.o. year old male who we are seeing in consultation for hyponatremia. NAEON Eating better. Good urine output. BP stable. No SOB. ROS otherwise negative. No change in PFSh. Objective/ Vitals: 04/12/23 1141 04/12/23 1552 04/12/23 1934 04/13/23 0744 BP: (!) 152/88 125/82 (!) 146/94 124/79 BP Location: Left arm Left arm Left arm Left arm Patient Position: Sitting Sitting Sitting Sitting Pulse: 93 90 83 87 Resp: 18 18 18 18 Temp: 36.4 C (97.5 F) 36.2 C (97.1 F) 36.5 C (97.7 F) 36.9 C (98.5 F) TempSrc: Temporal Temporal Temporal Temporal SpO2: 99% 98% 97% 96% Weight: Height: 24HR INTAKE/OUTPUT: Intake/Output Summary (Last 24 hours) at 04/13/2023 1329 Last data filed at 04/13/2023 1052 Gross per 24 hour Intake 390 ml Output -- Net 390 ml Constitutional: Alert, awake, no apparent distress Head: AT NC Neck: No JVD, no thyromegaly Cardiovascular: S1, S2 without m/r/g Respiratory: CTA B without w/r/r Abdomen: soft, nt Ext: trace B/L pitting LE edema amLODIPine, 2.5 mg, Oral, Daily calcium carbonate, 500 mg, Oral, Daily dicyclomine, 20 mg, Oral, TID AC folic acid, 1 mg, Oral, Daily levothyroxine, 50 mcg, Oral, qAM AC Lidocaine, 2 patch, TransDERmal, Daily losartan, 100 mg, Oral, Daily magnesium sulfate, 2,000 mg, IntraVENous, Once pantoprazole, 40 mg, Oral, Daily sodium chloride, 1 g, Oral, BID WC tamsulosin, 0.4 mg, Oral, Daily Thiamine Mononitrate, 100 mg, Oral, Daily PRN medications: albuterol, loperamide, ondansetron ODT OR ondansetron, oxyCODONE, polyethylene glycol (PEG) 3350 Data/ Recent Labs 04/11/23 0211 04/12/23 44104/13/23 0327 WBC 2.3* 3.1* 3.1* HGB 9.9* 9.8* 10.3* HCT 28.8* 27.9* 29.7* MCV 100.0* 99.1* 99.2* PLT 119* 134* 145 Recent Labs 04/11/23 0211 04/12/23 0442 04/13/23 0327 NA 130* 131* 127* K 3.6 3.6 3.5 CL 103 104 99 CO2 22 24 24 GLUCOSE 89 97 91 MG -- -- 0.9* BUN 10 8* 8* CREATININE 0.94 0.90 0.76 Assessment/ Acute on chronic hyponatremia is multifactorial 2/2 intravascular volume depletion from vomiting/diarrhea vs ADH stimulus from nausea/pain vs hypervolemic hyponatremia from liver disease +/- beer potomania 2. Alcoholic cirrhosis of the liver 3. Protein calorie malnutrition 4. ETOH abuse 5. Pain disorder 6. Pancytopenia 7. 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 Hx of hepatitis C 9. Acute hypomagnesemia Plan/ Hyponatremia fluctuating, Na dropped to 127 from 130 Nausea+, likely contributing to ADH stimulus Need to control nausea/pain with prns Encourage po protein intake, educated about protein rich foods Maintain FR 1.2 L/day. Protein goal of 1gm/kg/day Renal function okay Salt tablets noted, acceptable as long as doesn't worsen BP or volume overload. Agree with magnesium supplementation as ordered Discontinue PPI 2/2 persistent chronic hypomagnesemia, start pepcid BID and monitor symptoms of gerd No further changes Will follow. Thank you for the consult and the opportunity to participate in the care of this patient. Please do not hesitate to call with any questions or concerns. Ophelia Ramos, LEAH, ANIMAL CONTROL SPECIALIST [facility], [facility] [phone] office Associated attestation - Kennedi Pérez MD - 04/13/2023 3:13 PM EDT I have reviewed the above assessment and plan with the [facility]. I agree with above note. Hyponatremia, hypomagnesemia, low BUN. Poor po intake thought of as main etiology multiple abnormalities on bloodwork. PPI changed to H2 barbara. Images from the original note were not included. Addiction Medicine Patient: Woody Ni Admit Date: 04/09/2023 Primary Care Physician: Jani Quezada History of Present Illness The patient continues to be monitored by chemical dependency services. He has been ordered lorazepam on a as needed basis for alcohol withdrawal symptomatology. He has not required any as needed lorazepam since his admission to the hospital. He is essentially stable from a detoxification perspective. He was recently detoxified at [facility], but shortly after release from the hospital he relapsed. Social History Socioeconomic History Marital status: Spouse name: Not on file Number of children: Not on file Years of education: Not on file Highest education level: Not on file Occupational History Not on file Tobacco Use Smoking status: Every Day Types: Cigars Last attempt to quit: 1982 Years since quittin.5 Smokeless tobacco: Former Vaping Use Vaping Use: Every day Substances: CBD, canabis Devices: Disposable Substance and Sexual Activity Alcohol use: Yes Alcohol/week: 42.0 standard drinks of alcohol Types: 42 Cans of beer per week Comment: TALL BOY ARE DOUBLE BEERS 42 per week Drug use: Yes Types: Marijuana Comment: daily Sexual activity: Not on file Other Topics Concern Not on file Social History Narrative Not on file Social Determinants of Health Financial Resource Strain: Not on file Food Insecurity: Not on file Transportation Needs: No Transportation Needs (04/03/2023) PRAPARE - Transportation Lack of Transportation (Medical): No Lack of Transportation (Non-Medical): No Physical Activity: Inactive (04/03/2023) Exercise Vital Sign Days of Exercise per Week: 0 days Minutes of Exercise per Session: 0 min Stress: No Stress Concern Present (04/03/2023) [employer] [place] [facility] [employer] [facility] - Occupational Stress Questionnaire Feeling of Stress : Not at all Social Connections: Not on file Intimate Partner Violence: Not At Risk (02/11/2023) Humiliation, Afraid, Rape, and Kick questionnaire Fear of Current or Ex-Partner: No Emotionally Abused: No Physically Abused: No Sexually Abused: No Housing Stability: Low Risk (04/03/2023) Housing Stability Vital Sign Unable to Pay for Housing in the Last Year: No Number of Places Lived in the Last Year: 1 Unstable Housing in the Last Year: No 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 Nausea and vomiting 12/22/22-12/26/22 admitted at [facility] Pain management Sleep apnea noncompliant with device Past Surgical History: Procedure Laterality Date BACK SURGERY x 2 CHOLECYSTECTOMY LAMINECTOMY LAP,CHOLECYSTECTOMY (HISTORICAL) N/A 01/05/2023 WISDOM TOOTH EXTRACTION Family History Problem Relation Name Age of Onset Depression Mother Depression Maternal Grandmother Labs Recent Results (from the past 48 hour(s)) CBC Collection Time: 04/12/23 4:42 AM Result Value Ref Range Auto WBC 3.1 (L) 3.6 - 10.7 10*3/uL RBC 2.82 (L) 4.40 - 5.90 10*6/uL Hemoglobin 9.8 (L) 13.0 - 18.0 g/dL Hematocrit 27.9 (L) 40.0 - 52.0 % MCV 99.1 (H) 80.0 - 98.0 fL MCH 34.7 (H) 26.0 - 34.0 pg MCHC 35.0 32.0 - 36.0 % RDW 14.0 11.5 - 14.5 % Platelets 134 (L) 140 - 440 10*3/uL MPV 8.2 7.4 - 12.4 fL Comprehensive metabolic panel Collection Time: 04/12/23 4:42 AM Result Value Ref Range SODIUM 131 (L) 135 - 145 mmol/L POTASSIUM 3.6 3.5 - 5.1 mmol/L CHLORIDE 104 98 - 107 mmol/L CARBON DIOXIDE 24 22 - 30 mmol/L ANION GAP 4 3 - 13 mmol/L UREA NITROGEN 8 (L) 9 - 20 mg/dL CREATININE 0.90 0.66 - 1.25 mg/dL GLUCOSE 97 70 - 100 mg/dL CALCIUM 8.2 (L) 8.4 - 10.4 mg/dL AST (SGOT) 75 (H) 15 - 46 U/L ALT 50 (H) 0 - 49 U/L ALKALINE PHOSPHATASE 59 38 - 126 U/L ALBUMIN 3.2 (L) 3.5 - 5.0 g/dL BILIRUBIN, TOTAL 0.3 0.2 - 1.3 mg/dL TOTAL PROTEIN 5.8 (L) 6.3 - 8.2 g/dL eGFR >90.0 >60.0 mL/min/1.73m*2 CBC Collection Time: 04/13/23 3:27 AM Result Value Ref Range Auto WBC 3.1 (L) 3.6 - 10.7 10*3/uL RBC 2.99 (L) 4.40 - 5.90 10*6/uL Hemoglobin 10.3 (L) 13.0 - 18.0 g/dL Hematocrit 29.7 (L) 40.0 - 52.0 % MCV 99.2 (H) 80.0 - 98.0 fL MCH 34.4 (H) 26.0 - 34.0 pg MCHC 34.7 32.0 - 36.0 % RDW 13.7 11.5 - 14.5 % Platelets 145 140 - 440 10*3/uL MPV 8.0 7.4 - 12.4 fL Comprehensive metabolic panel Collection Time: 04/13/23 3:27 AM Result Value Ref Range SODIUM 127 (L) 135 - 145 mmol/L POTASSIUM 3.5 3.5 - 5.1 mmol/L CHLORIDE 99 98 - 107 mmol/L CARBON DIOXIDE 24 22 - 30 mmol/L ANION GAP 4 3 - 13 mmol/L UREA NITROGEN 8 (L) 9 - 20 mg/dL CREATININE 0.76 0.66 - 1.25 mg/dL GLUCOSE 91 70 - 100 mg/dL CALCIUM 7.9 (L) 8.4 - 10.4 mg/dL AST (SGOT) 67 (H) 15 - 46 U/L ALT 46 0 - 49 U/L ALKALINE PHOSPHATASE 47 38 - 126 U/L ALBUMIN 3.2 (L) 3.5 - 5.0 g/dL BILIRUBIN, TOTAL 0.5 0.2 - 1.3 mg/dL TOTAL PROTEIN 5.7 (L) 6.3 - 8.2 g/dL eGFR >90.0 >60.0 mL/min/1.73m*2 Magnesium Collection Time: 04/13/23 3:27 AM Result Value Ref Range MAGNESIUM 0.9 (LL) 1.6 - 2.3 mg/dL Medications Home Meds: Prior to Admission medications Medication Sig Start Date End Date Taking? Authorizing Provider acetaminophen (Tylenol) 325 MG tablet every 4 hours as needed. Historical Provider, albuterol (2.5 MG/3ML) 0.083% nebulizer solution Take 2.5 mg by nebulization 2 times daily as needed. PRN Historical Provider, albuterol 108 (90 Base) MCG/ACT inhaler Inhale 1 puff every 4 hours as needed. Historical Provider, alendronate (Fosamax) 70 MG tablet Take 70 mg by mouth once a week. 05/19/17 Historical Provider, amLODIPine (Norvasc) 2.5 MG tablet Take 2.5 mg by mouth in the morning. 05/27/17 Historical Provider, Bioflavonoid Products (Alana-C) tablet Every 24 hours. Historical Provider, calcium carbonate (Tums) 500 MG chewable tablet Chew 1 tablet (500 mg) daily. Do not start before February 15, 2023. 02/15/23 02/15/24 Kacie Benz, cyanocobalamin (Vitamin B-12) 1000 MCG/ML injection 1 mL intramuscularly once a month Historical Provider, dicyclomine (Bentyl) 20 MG tablet Take 1 tablet (20 mg) by mouth in the morning and 1 tablet (20 mg) at noon and 1 tablet (20 mg) in the evening. Take before meals. 11/07/22 11/07/23 Beryl Holder PA-C fluticasone (Flonase) 50 MCG/ACT nasal spray Administer 1 spray into each nostril daily as needed. 04/27/17 Historical Provider, ipratropium (Atrovent) 0.02 % nebulizer solution PRN 05/04/17 Historical Provider, ipratropium-albuterol (Duo-Neb) 0.5-2.5 mg/3 mL nebulizer solution every 6 hours. Historical Provider, ketoconazole (NIZOral) 2 % shampoo EVERY THREE DAYS 11/18/19 Historical Provider, levothyroxine (Synthroid, Levoxyl) 50 MCG tablet TAKE 1 TABLET BY MOUTH DAILY 06/06/22 06/06/23 Nicolas Qiu losartan (Cozaar) 100 MG tablet Take 1 tablet (100 mg) by mouth daily. Do not start before February 15, 2023. 02/15/23 02/15/24 Kacie Benz DO niacin 100 MG tablet Every 24 hours. Historical Provider, nitroglycerin (Nitrostat) 0.4 MG SL tablet 1 tab(s) sublingually every 5 minutes x 3 doses prn Historical Provider, ondansetron (Zofran) 4 MG tablet Every 24 hours. Historical Provider, oxyCODONE (Roxicodone) 10 MG immediate release tablet Take 10 mg by mouth in the morning and 10 mg at noon and 10 mg in the evening and 10 mg before bedtime. 05/29/17 Historical Provider, pantoprazole (ProtoNix) 40 MG EC tablet Take 40 mg by mouth daily. Historical Provider, potassium chloride ER (Micro-K) 10 MEQ ER capsule Take 10 mEq by mouth in the morning. 03/30/17 Historical Provider, sodium chloride 1 g tablet Take 1 tablet (1 g) by mouth in the morning and 1 tablet (1 g) in the evening. Take with meals. 02/14/23 02/14/24 Kacie Benz DO tamsulosin (Flomax) 0.4 MG 24 hr capsule Take 0.4 mg by mouth daily. 01/27/22 Historical Provider, Inpatient Scheduled Meds: amLODIPine, 2.5 mg, Oral, Daily calcium carbonate, 500 mg, Oral, Daily dicyclomine, 20 mg, Oral, TID AC folic acid, 1 mg, Oral, Daily levothyroxine, 50 mcg, Oral, qAM AC Lidocaine, 2 patch, TransDERmal, Daily losartan, 100 mg, Oral, Daily magnesium sulfate, 2,000 mg, IntraVENous, Once pantoprazole, 40 mg, Oral, Daily sodium chloride, 1 g, Oral, BID WC tamsulosin, 0.4 mg, Oral, Daily Thiamine Mononitrate, 100 mg, Oral, Daily Inpatient PRN Meds: PRN medications: albuterol, loperamide, ondansetron ODT OR ondansetron, oxyCODONE, polyethylene glycol (PEG) 3350 Exam Vitals: 04/12/23 1141 04/12/23 1552 04/12/23 1934 04/13/23 0744 BP: (!) 152/88 125/82 (!) 146/94 124/79 BP Location: Left arm Left arm Left arm Left arm Patient Position: Sitting Sitting Sitting Sitting Pulse: 93 90 83 87 Resp: 18 18 18 18 Temp: 36.4 C (97.5 F) 36.2 C (97.1 F) 36.5 C (97.7 F) 36.9 C (98.5 F) TempSrc: Temporal Temporal Temporal Temporal SpO2: 99% 98% 97% 96% Weight: Height: Physical Exam Patient was sitting up in the day chair. Pleasant, cooperative. Denied any significant withdrawal symptomatology including anxiety, sweats, tremors. He is not flushed or diaphoretic. Oriented x4. There are no auditory, tactile or visual disturbances. He continues to be monitored closely by the medical team for hyponatremia, dehydration, elevated LFTs. Thrombocytopenia, leukopenia. Assessment & Plan Plan is for this patient is to enter the virtual outpatient CD program affiliated with the [facility]. FLAVIO SHERMAN MD Addiction Medicine 04/13/2023 at 12:48 PM -35- minutes were spent reviewing the patient's records, evaluating the patient, entering orders, coordinating care with the treatment team, and creating a progress note. Narrative portions of the note are written utilizing [employer] software. While every effort is made to dictate clearly and proofread, errors in the dictation may still occur. If there are any questions regarding the dictation please do not hesitate to contact the author. Images from the original note were not included. Hospitalist Progress Note 04/13/2023 [phone]: Please secure chat [place] for patient care issues. [phone]: Please secure chat [facility] Hospitalist for any issues. Subjective: Admit Date: 04/09/2023 PCP: Jani Quezada Room#: [id number] A Chief complaint: Having nausea since last night, Zofran helping Interval History: No overnight issues. Denies chest pain, sob, abdominal pain, diarrhea, constipation, fevers, or chills. 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 Nausea and vomiting 12/22/22-12/26/22 admitted at [facility] Pain management Sleep apnea noncompliant with device LABS: CBC: Recent Labs 04/11/2321004/12/232 04/13/23326 WBC 2.3* 3.1* 3.1* RBC 2.88* 2.82* 2.99* HGB 9.9* 9.8* 10.3* HCT 28.8* 27.9* 29.7* MCV 100.0* 99.1* 99.2* RDW 14.2 14.0 13.7 PLT 119* 134* 145 BMP: Recent Labs 04/11/2321004/12/2344104/13/23326 NA 130* 131* 127* K 3.6 3.6 3.5 CL 103 104 99 CO2 22 24 BUN 10 8* 8* CREATININE 0.94 0.90 0.76 GLUCOSE 89 97 91 CALCIUM 8.3* 8.2* 7.9* ANIONGAP 5 4 4 LIVER PROFILE: Recent Labs 04/11/2321004/12/232 04/13/23326 AST 100* 75* 67* ALT 60* 50* 46 BILITOT 0.4 0.3 0.5 ALKPHOS 64 59 47 PROT 5.7* 5.8* 5.7* PT/INR: No results for input(s): PROTIME, INR in the last 72 hours. CARDIAC ENZYMES: No results for input(s): TROPONINI in the last 72 hours. Procalcitonin: No results found for: PROCAL COVID-19 PCR: No results for input(s): COVID19 in the last 72 hours. Objective: Vitals: BP 124/79 (BP Location: Left arm, Patient Position: Sitting) Pulse 87 Temp 36.9 C (98.5 F) (Temporal) Resp 18 Ht 5' 10" (1.778 m) Wt 160 lb (72.6 kg) SpO2 96% BMI 22.96 kg/m Pulse Ox: SpO2 Av % Min: 96 % Max: 98 % Physical Exam Constitutional: Appearance: He is obese. Cardiovascular: Rate and Rhythm: Normal rate and regular rhythm. Pulses: Normal pulses. Heart sounds: Normal heart sounds. Pulmonary: Effort: Pulmonary effort is normal. Breath sounds: Normal breath sounds. Abdominal: General: There is no distension. Palpations: Abdomen is soft. Tenderness: There is no abdominal tenderness. Medications: amLODIPine, 2.5 mg, Oral, Daily calcium carbonate, 500 mg, Oral, Daily dicyclomine, 20 mg, Oral, TID AC folic acid, 1 mg, Oral, Daily levothyroxine, 50 mcg, Oral, qAM AC Lidocaine, 2 patch, TransDERmal, Daily losartan, 100 mg, Oral, Daily magnesium sulfate, 4,000 mg, IntraVENous, Once pantoprazole, 40 mg, Oral, Daily sodium chloride, 1 g, Oral, BID WC tamsulosin, 0.4 mg, Oral, Daily Thiamine Mononitrate, 100 mg, Oral, Daily Assessment Acute hyponatremia/SIADH due to excess ethanol intake DENNYS due to dehydration Elevated LFT due to alcohol liver disease Status post liver biopsy December 2022 Acute diarrhea causing volume depletion/dehydration-stool studies negative History of hepatitis C Thrombocytopenia due to liver disease Severe Malnutrition Chronic problems: 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 Hypertension Anxiety and depression Obstructive sleep apnea on Pap noncompliant Gastroesophageal reflux disease Medical Decision Making Patient admitted for alcohol excess use with hyponatremia, sodium levels fluctuating, 127 today, nephrology following, on fluid restriction at 100 cc/day, protein supplements and salt tablets Patient having nausea-Zofran helping, pain and nausea should be controlled for decreasing ADH stimulation Alcohol cessation advised given, no withdrawal effects, await PT and OT assessments with assisted facility placement -am labs, replace lytes prn -increase activity -DVT prophylaxis: [] Lovenox [] Heparin [] SCDs [x] Encourage ambulation [] Already on Anticoagulation Anticipated Discharge - Date -April 14 or - Location -assisted facility - Pending the following -bed availability and insurance approval Total time spent (which include face to face and non face to face encounters) : 36 minutes Toxic drug monitoring/narrow therapeutic index drug monitoring : # Drug name : Lovenox # Route administered : Subcutaneous # Method of monitoring : CBC Extended Emergency Contact Information Primary Emergency Contact: Kingsley Carl Relation: Spouse LAURA STEVENS MD, Division of Hospitalist Medicine [facility] PAGER: Epic chat [facility] Nephrology Progress Note Subjective/ 63 y.o. year old male who we are seeing in consultation for hyponatremia. Eating better. Good urine output. BP stable. No SOB. ROS otherwise negative. No change in PFSh. Objective/ Vitals: 04/12/23 0436 04/12/23 0749 04/12/23 1141 04/12/23 1552 BP: (!) 156/89 131/86 (!) 152/88 125/82 BP Location: Left arm Left arm Left arm Patient Position: Sitting Sitting Sitting Pulse: 97 68 93 90 Resp: 18 18 18 18 Temp: 36.6 C (97.9 F) 36.6 C (97.8 F) 36.4 C (97.5 F) 36.2 C (97.1 F) TempSrc: Temporal Temporal Temporal Temporal SpO2: 96% 98% 99% 98% Weight: Height: 24HR INTAKE/OUTPUT: Intake/Output Summary (Last 24 hours) at 04/12/2023 1826 Last data filed at 04/12/2023 1721 Gross per 24 hour Intake 420 ml Output -- Net 420 ml Constitutional: Alert, awake, no apparent distress Head: AT NC Neck: No JVD, no thyromegaly Cardiovascular: S1, S2 without m/r/g Respiratory: CTA B without w/r/r Abdomen: soft, nt Ext: NO B/L pitting LE edema @MEDCMED@ Data/ Recent Labs 04/09/236 04/11/23 0211 04/12/23 0442 WBC 3.3* 2.3* 3.1* HGB 10.0* 9.9* 9.8* HCT 28.5* 28.8* 27.9* MCV 96.6 100.0* 99.1* PLT 106* 119* 134* Recent Labs 04/10/23 0529 04/11/23 0211 04/12/23 0442 NA 129* 130* 131* K 4.1 3.6 3.6 CL 101 103 104 CO2 24 GLUCOSE 83 89 97 BUN 6* 10 8* CREATININE 0.94 0.94 0.90 Assessment/ Acute on chronic hyponatremia is multifactorial 2/2 intravascular volume depletion from vomiting/diarrhea vs ADH stimulus from nausea/pain vs hypervolemic hyponatremia from liver disease +/- beer potomania 2. Alcoholic cirrhosis of the liver 3. Protein calorie malnutrition 4. ETOH abuse 5. Pain disorder 6. Pancytopenia 7. 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 Hx of hepatitis C Plan/ Hyponatremia improving slowly Encourage po protein intake. FR 1.2 L/day. Renal function okay. Salt tablets added, acceptable as long as doesn't worsen BP or volume overload. Will follow. Kennedi Pérez MD [facility] Images from the original note were not included. Hospitalist Progress Note 04/12/[id number]: Please secure chat me for patient care issues. [phone]: Please secure chat [facility] Hospitalist for any issues. Subjective: Admit Date: 04/09/2023 PCP: Jani Quezada Room#: [id number] A Chief complaint: Hyponatremia and diarrhea improving Interval History: No overnight issues. Denies chest pain, sob, nausea, vomiting, constipation, fevers, or chills. Adult diet Regular; 1200 ml @[id number]@ 24HR INTAKE/OUTPUT: Intake/Output Summary (Last 24 hours) at 04/12/2023 1217 Last data filed at 04/11/2023 1232 Gross per 24 hour Intake 100 ml Output -- Net 100 ml 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 Nausea and vomiting 12/22/22-12/26/22 admitted at [facility] Pain management Sleep apnea noncompliant with device LABS: CBC: Recent Labs 04/09/23203504/11/2321004/12/23441 WBC 3.3* 2.3* 3.1* RBC 2.95* 2.88* 2.82* HGB 10.0* 9.9* 9.8* HCT 28.5* 28.8* 27.9* MCV 96.6 100.0* 99.1* RDW 12.8 14.2 14.0 PLT 106* 119* 134* BMP: Recent Labs 04/10/2352804/11/2321004/12/23441 NA 129* 130* 131* K 4.1 3.6 3.6 CL 101 103 104 CO2 BUN 6* 10 8* CREATININE 0.94 0.94 0.90 GLUCOSE 83 89 97 CALCIUM 8.2* 8.3* 8.2* ANIONGAP 5 5 4 LIVER PROFILE: Recent Labs 04/10/2352804/11/2321004/12/23441 AST 142* 100* 75* ALT 62* 60* 50* BILITOT 0.3 0.4 0.3 ALKPHOS 54 64 59 PROT 6.0* 5.7* 5.8* PT/INR: Recent Labs 04/09/232035 PROTIME 11.3 INR 1.0 CARDIAC ENZYMES: Recent Labs 04/09/232035 TROPONINI <0.012 Procalcitonin: No results found for: PROCAL COVID-19 PCR: No results for input(s): COVID19 in the last 72 hours. Objective: Vitals: BP (!) 152/88 (BP Location: Left arm, Patient Position: Sitting) Pulse 93 Temp 36.4 C (97.5 F) (Temporal) Resp 18 Ht 5' 10" (1.778 m) Wt 160 lb (72.6 kg) SpO2 99% BMI 22.96 kg/m Pulse Ox: SpO2 Av.1 % Min: 96 % Max: 99 % Physical Exam Constitutional: Appearance: He is obese. Cardiovascular: Rate and Rhythm: Normal rate and regular rhythm. Pulses: Normal pulses. Heart sounds: Normal heart sounds. Pulmonary: Effort: Pulmonary effort is normal. Breath sounds: Normal breath sounds. Abdominal: General: There is no distension. Palpations: Abdomen is soft. Tenderness: There is no abdominal tenderness. Medications: amLODIPine, 2.5 mg, Oral, Daily calcium carbonate, 500 mg, Oral, Daily dicyclomine, 20 mg, Oral, TID AC folic acid, 1 mg, Oral, Daily levothyroxine, 50 mcg, Oral, qAM AC Lidocaine, 2 patch, TransDERmal, Daily losartan, 100 mg, Oral, Daily pantoprazole, 40 mg, Oral, Daily sodium chloride, 1 g, Oral, BID WC tamsulosin, 0.4 mg, Oral, Daily Thiamine Mononitrate, 100 mg, Oral, Daily Assessment Acute hyponatremia due to excess ethanol intake DENNYS due to dehydration Elevated LFT due to alcohol liver disease Status post liver biopsy December 2022 Acute diarrhea causing volume depletion/dehydration-stool studies negative History of hepatitis C Chronic problems: 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 Hypertension Anxiety and depression Obstructive sleep apnea on Pap noncompliant Gastroesophageal reflux disease Medical Decision Making Patient abdominal pain and diarrhea has hyponatremia, nephrology following on fluid restriction and protein intake, feeling better, sodium 131 today On CIWA protocol-no severe withdrawal effects PT and OT assessments -am labs, replace lytes prn -increase activity -DVT prophylaxis: [] Lovenox [] Heparin [] SCDs [x] Encourage ambulation [] Already on Anticoagulation Anticipated Discharge - Date - - Location - - Pending the following - Total time spent (which include face to face and non face to face encounters) : 36minutes Toxic drug monitoring/narrow therapeutic index drug monitoring : # Drug name : # Route administered : # Method of monitoring : Extended Emergency Contact Information Primary Emergency Contact: Kingsley Carl Relation: Spouse LAURA STEVENS MD, Division of Hospitalist Medicine [facility] [employer] PAGER: Epic chat [facility] Progress Note Subjective/ 63 y.o. year old male who we are seeing in consultation for hyponatremia. Eating better. Good urine output. BP stable. No SOB. ROS otherwise negative. No change in PFSh. Objective/ Vitals: 04/11/23 0419 04/11/23 0739 04/11/23 0839 04/11/23 1128 BP: (!) 159/86 123/70 115/73 BP Location: Left arm Left arm Left arm Patient Position: Lying Sitting Sitting Pulse: 93 92 87 Resp: 16 18 18 Temp: 36.4 C (97.6 F) (!) 35.8 C (96.5 F) 36.4 C (97.6 F) TempSrc: Temporal Temporal Temporal SpO2: 99% 99% 97% Weight: Height: 1.778 m (5' 10") 24HR INTAKE/OUTPUT: Intake/Output Summary (Last 24 hours) at 04/11/2023 1509 Last data filed at 04/11/2023 1232 Gross per 24 hour Intake 1287 ml Output -- Net 1287 ml Constitutional: Alert, awake, no apparent distress Head: AT NC Neck: No JVD, no thyromegaly Cardiovascular: S1, S2 without m/r/g Respiratory: CTA B without w/r/r Abdomen: soft, nt Ext: NO B/L pitting LE edema @MEDCMED@ Data/ Recent Labs 04/09/23203504/11/23 0211 WBC 3.3* 2.3* HGB 10.0* 9.9* HCT 28.5* 28.8* MCV 96.6 100.0* PLT 106* 119* Recent Labs 04/09/23203504/10/23 0529 04/11/23 0211 NA 124* 129* 130* K 3.9 4.1 3.6 CL 93* 101 103 CO2 19* 23 22 GLUCOSE 110* 83 89 BUN 9 6* 10 CREATININE 1.04 0.94 0.94 Assessment/ Acute on chronic hyponatremia is multifactorial 2/2 intravascular volume depletion from vomiting/diarrhea vs ADH stimulus from nausea/pain vs hypervolemic hyponatremia from liver disease +/- beer potomania 2. Alcoholic cirrhosis of the liver 3. Protein calorie malnutrition 4. ETOH abuse 5. Pain disorder 6. Pancytopenia 7. 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 Hx of hepatitis C Plan/ Hyponatremia improving slowly Encourage po protein intake. FR 1.2 L/day. Renal function okay. Salt tablets added, acceptable as long as doesn't worsen BP or volume overload. Will follow. Kennedi Pérez MD [facility] Images from the original note were not included. Hospitalist Progress Note 04/11/[id number]: Please page me ([phone]) for patient care issues. [phone]: Please page [facility] Hospitalist for any issues. Subjective: Admit Date: 04/09/2023 PCP: Jani Quezada Room#: [id number]/[id number] A Interval History: Patient doing much better this monring he states. He denies chest pain, sob. Still with abdominal pain but states it is alot better. Back pain is a lot better as well. No nausea, vomiting. Also states diarrhea stopped at 4am. No constipation, fevers, or chills. Adult diet Regular; 1200 ml @[id number]@ 24HR INTAKE/OUTPUT: Intake/Output Summary (Last 24 hours) at 04/11/2023 1308 Last data filed at 04/11/2023 1232 Gross per 24 hour Intake 1287 ml Output -- Net 1287 ml 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 Nausea and vomiting 12/22/22-12/26/22 admitted at [facility] Pain management Sleep apnea noncompliant with device LABS: CBC: Recent Labs 04/09/23203504/11/23 021 WBC 3.3* 2.3* RBC 2.95* 2.88* HGB 10.0* 9.9* HCT 28.5* 28.8* MCV 96.6 100.0* RDW 12.8 14.2 PLT 106* 119* BMP: Recent Labs 04/09/23203504/10/23 0529 04/11/23 0211 NA 124* 129* 130* K 3.9 4.1 3.6 CL 93* 101 103 CO2 * 22 BUN 9 6* 10 CREATININE 1.04 0.94 0.94 GLUCOSE 110* 83 89 CALCIUM 8.7 8.2* 8.3* ANIONGAP 12 5 5 LIVER PROFILE: Recent Labs 04/09/23203504/10/23 0529 04/11/23 0211 AST 103* 142* 100* ALT 58* 62* 60* BILITOT 0.3 0.3 0.4 ALKPHOS 63 54 64 PROT 6.6 6.0* 5.7* PT/INR: Recent Labs 04/09/232035 PROTIME 11.3 INR 1.0 CARDIAC ENZYMES: Recent Labs 04/09/232035 TROPONINI <0.012 Procalcitonin: No results found for: PROCAL COVID-19 PCR: No results for input(s): COVID19 in the last 72 hours. Objective: Vitals: BP 115/73 (BP Location: Left arm, Patient Position: Sitting) Pulse 87 Temp 36.4 C (97.6 F) (Temporal) Resp 18 Ht 5' 10" (1.778 m) Wt 160 lb (72.6 kg) SpO2 97% BMI 22.96 kg/m Pulse Ox: SpO2 Av.3 % Min: 97 % Max: 99 % Supplemental O2: General appearance: No apparent distress, appears stated age, HEENT: Eyes: No scleral icterus Oral: Tongue is semi-moist Cardiovascular: S1/S2 heard, RRR Respiratory: Clear to auscultation bilaterally Abdomen: Soft, some generalize pain to palp but looks completely comfortable, non-distended bowel sounds positive Musculoskeletal: No obvious deformities seen Skin: No visible rashes or lesions. Medications: amLODIPine, 2.5 mg, Oral, Daily calcium carbonate, 500 mg, Oral, Daily dicyclomine, 20 mg, Oral, TID AC folic acid, 1 mg, Oral, Daily levothyroxine, 50 mcg, Oral, qAM AC Lidocaine, 2 patch, TransDERmal, Daily losartan, 100 mg, Oral, Daily pantoprazole, 40 mg, Oral, Daily sodium chloride, 1 g, Oral, BID WC tamsulosin, 0.4 mg, Oral, Daily Thiamine Mononitrate, 100 mg, Oral, Daily Assessment # Hyponatremia - sodium was 124 in ER. Sodium better now at 130. Likely related to ETOH use and poor solute intake/dehydration. Of note, he is on salt tablet outpatient and states he has been taking it. Improved now with NS IVF (now off of IVF). Resumed home salt tablets. Monitor for ongoing improvement. Nephrology following/managing # Mild renal insufficiency on admission due to dehydration - resolved with IVF # Elevated LFTs likely related to Alcoholic hepatitis in the setting of alcoholic cirrhosis - trending down. # Alcoholic cirrhosis - diagnosed by liver biopsy outpatient. # ETOH use disorder with acute intoxication on admission - was just detoxed a week ago but went home and continued drinking beer. Started on thiamine/folate and PRN ativan per [facility] protocol. Addiction med consulted/following. He had made a commitment to follow-up with [facility] virtual program. Hopefully he will return to this program after he is released from the hospital. # Chronic opioid use with acute withdrawal - was seeing pain management and getting opioids outpatient but was stopped 10 days ago by pain management during ETOH use disorder per patient. Addiction med to see. # Acute diarrhea - GI panel was negative. TSH normal. Suspect withdrawing from opioids. Says pain management stopped his pain meds 10 days ago due to his ETOH use. Now resolved with placing on roxicodone po PRN. # Pancytopenia - likely related to ETOH use, bone marrow suppression from ETOH/low platelets from cirrhosis with hypersplenia. Monitor for improvement. # Acute on Chronic pain (back and abd) - hx of seeing pain management outpatient. Was on chronic opioid but was stopped 10 days ago due to his ETOH use per patient. Will use roxicodone PRN while here but explained that cannot prescribe him any on discharge. Also would like input from addiction med as well as if they plan to detox and need to stop the roxicodone, then will stop. Any input from palliative care would also be appreciated. Added lidocaine patch. pain a lot better now. # Hx of Hep C # Chronic hypothyroidism - resumed home synthroid. Check TSH in light of diarrhea. # Reported hx of diabetes in records but NOT a diabetic. NOT on any home diabetic meds and last HgbA1C on 04/02 was stone cold normal at 4.7 # Chronic HTN - resumed home bp meds # Hx of anxiety/depression # SHAYLA - noncompliant with PAP # GERD Plan Check daily labs. Continue to monitor for any signs of ETOH withdrawal. Continue thiamine/folate and prn ativan. Continue lidocaine patch and PRN roxicodone with plans to wean. Continue all other tx the same (see above). Toxic drug monitoring/narrow therapeutic index drug monitoring if any: # Drug name : # Route administered : # Method of monitoring : Extended Emergency Contact Information Primary Emergency Contact: Kingsley Carl Relation: Spouse DAJA JOHNSON MD Division of Hospitalist Medicine Inpatient Medical Services/[facility] PAGER: Epic chat documented in this encounter [facility] 04-15-2023 Note Formatting of this n ote is different from the original. Images from the original note were not included. Care Management Progress Note Pt has discharge order.Denied discharge needs or concerns. Pt to return home with . Instructed pt to follow up with PCP in 1 week & to obtain lab work per attending note. Pt verbalized understanding. Discharge Milestones and Delays Expected Date/Time: 04/15/2023 Discharge provider: Richie Acosta MD Disposition: Home or Self Care Transport status: No current request Discharge Milestones Place discharge order Complete med reconciliation Case mgmt discharge readiness Clinical Stability Diagnsotic Workup Expected Discharge History Expected Date/Time Set By Reviewed At 04/15/2023 Ced Koenig MD 04/15/2023 9:13 AM TCC estimate 04/15/2023 Monica Scott RN 04/14/2023 8:35 AM 04/14/2023 Monica Scott RN 04/13/2023 8:36 AM 04/13/2023 Monica Scott RN 04/10/2023 8:38 AM 04/13/2023 Richie Acosta MD 04/10/2023 7:43 AM 04/12/2023 Richie Acosta MD 04/10/2023 12:25 AM Length of Stay (Days): 5 GMLOS: 2.6 [facility] 04-15-2023 Note Formatting of this n ote is different from the original. Images from the original note were not included. Care Management Progress Note Pt has discharge order.Denied discharge needs or concerns. Pt to return home with . Instructed pt to follow up with PCP in 1 week & to obtain lab work per attending note. Pt verbalized understanding. Discharge Milestones and Delays Expected Date/Time: 04/15/2023 Discharge provider: Richie Acosta MD Disposition: Home or Self Care Transport status: No current request Discharge Milestones Place discharge order Complete med reconciliation Case mgmt discharge readiness Clinical Stability Diagnsotic Workup Expected Discharge History Expected Date/Time Set By Reviewed At 04/15/2023 Ced Koenig MD 04/15/2023 9:13 AM TCC estimate 04/15/2023 Monica Scott RN 04/14/2023 8:35 AM 04/14/2023 Monica Scott RN 04/13/2023 8:36 AM 04/13/2023 Monica Scott RN 04/10/2023 8:38 AM 04/13/2023 Richie Acosta MD 04/10/2023 7:43 AM 04/12/2023 Richie Acosta MD 04/10/2023 12:25 AM Length of Stay (Days): 5 GMLOS: 2.6 [facility] 04-15-2023 Miscellaneous Notes Images from the original note were not included. Care Management Progress Note Pt has discharge order.Denied discharge needs or concerns. Pt to return home with . Instructed pt to follow up with PCP in 1 week & to obtain lab work per attending note. Pt verbalized understanding. Discharge Milestones and Delays Expected Date/Time: 04/15/2023 Discharge provider: Richie Acosta MD Disposition: Home or Self Care Transport status: No current request Discharge Milestones Place discharge order Complete med reconciliation Case mgmt discharge readiness Clinical Stability Diagnsotic Workup Expected Discharge History Expected Date/Time Set By Reviewed At 04/15/2023 Ced Koenig MD 04/15/2023 9:13 AM TCC estimate 04/15/2023 Monica Scott RN 04/14/2023 8:35 AM 04/14/2023 Monica Scott RN 04/13/2023 8:36 AM 04/13/2023 Monica Scott RN 04/10/2023 8:38 AM 04/13/2023 Richie Acosta MD 04/10/2023 7:43 AM 04/12/2023 Richie Acosta MD 04/10/2023 12:25 AM Length of Stay (Days): 5 GMLOS: 2.6 Images from the original note were not included. Care Management Progress Note TRANSITIONAL CARE DAILY NOTE/UPDATES: Patient remains on 2E due to hyponatremia. Clinical updates: Sodium today was 125., Patient states has pain when eating solid food, poor PO intake. Nephrology and addiction med following. Discharge plan: home when medically stable. Discharge obstacles: none noted. TCC to continue to follow. Discharge Milestones and Delays Expected Date/Time: 04/15/2023 Discharge provider: Richie Acosta MD Disposition: Home or Self Care Discharge Milestones Place discharge order Complete med reconciliation Case mgmt discharge readiness Clinical Stability Diagnsotic Workup Expected Discharge History Expected Date/Time Set By Reviewed At 04/15/2023 Monica Scott RN 04/14/2023 8:35 AM TCC estimate 04/14/2023 Monica Scott RN 04/13/2023 8:36 AM 04/13/2023 Monica Scott RN 04/10/2023 8:38 AM 04/13/2023 Richie Acosta MD 04/10/2023 7:43 AM 04/12/2023 Richie Acosta MD 04/10/2023 12:25 AM Length of Stay (Days): 4 GMLOS: 2.6 The patient is Moderately Unstable - Medium risk of patient condition declining or worsening The patient's goals for the shift include rest The clinical goals for the shift include safety Over the shift, the patient did not make progress toward the following goals. Barriers to progression include none at this time. Recommendations to address these barriers include continue current care plan. Patient may be discharged in a.m. to home, once electrolytes stabilize and nausea controlled, did well with PT and OT. Images from the original note were not included. Care Management Progress Note TRANSITIONAL CARE DAILY NOTE/UPDATES: Patient remains on 2E due to hyponatremia. Clinical updates: Sodium today was 127, magnesium was 0.9. Magnesium replaced via IV. Nephrology and addiction med following. Discharge plan: home when medically stable. Discharge obstacles: none noted. TCC to continue to follow. Discharge Milestones and Delays Expected Date/Time: 04/14/2023 Discharge provider: Richie Acosta MD Disposition: Home or Self Care Discharge Milestones Place discharge order Complete med reconciliation Case mgmt discharge readiness Clinical Stability Diagnsotic Workup Expected Discharge History Expected Date/Time Set By Reviewed At 04/14/2023 Monica Scott RN 04/13/2023 8:36 AM TCC estimate 04/13/2023 Monica Scott RN 04/10/2023 8:38 AM 04/13/2023 Richie Acosta MD 04/10/2023 7:43 AM 04/12/2023 Richie Acosta MD 04/10/2023 12:25 AM Length of Stay (Days): 3 GMLOS: 2.6 Met with patient and his significant other this afternoon to complete HCPOA paperwork. Copies given to patient and his girfriend. Copy placed in the chart. Met with patient at his bedside to discuss completing the HCPOA paperwork. Patient states he would like to designate his log term girlfriend of 25 years, Kingsley Carl. He states she will be in after work this afternoon around 2:00 and would like to complete it at that time. Will print the paperwork and have it ready. Provided patient with informational booklet on HCPOA and updated that will inform home health care social worker on Thursday that he would like to complete. Hcpoa paperwork. . Care Managment Initial Assessment Date: 04/10/2023 Patient Name: Woody Ni : 1960 Patient Information Source of Information: Patient Cognition/Language: WFL - Within Functional Limits Permission given to speak with patient underwriting account representative/caregiver as indicated: Yes (Kingsley Carl (Spouse) [phone]) Confirmation of Payer with patient/family: Yes Payer Name: Medicare A&B,, 2 Medicaid [place]: Yes (does not follow with [facility]) Confirmation of Primary Care Physician: Confirmed PCP Name: Jani Quezada Seen in last 2 years?: Yes Primary Caregiver: Self If assistance needed, confirmed caregiver ready, willing and able to care for patient at discharge: Confirmed with: Living Arrangements Current Residence: House Number of Floors 2 Number of Entry Steps: 1 Bed/Bath Levels: Both first floor Facility: Facility Name: Plan to Return: Lives with: Spouse/significant other Support Systems: Spouse/significant other Activities of Daily Living Ambulation: Assistance (walker and/or cane) Bathing/Dressing: Independent Elimination/Continence/Toileting: Independent Feeding: Independent Who Assists with Activities of Daily Living: Instrumental Activities of Daily Living Prescription Coverage: Yes Pharmacy Used: [facility] in [place] Medication Management: Independent Transportation/Shopping: Assistance Provider Transportation/Shopping Assistance Provider Name: Transportation Mode: Car Needs Assistance with Transportation at Discharge: No ( will transport) Meal Preparation: Assistance Provider Meal Prep Assistance Provider Name: Laundry/Cleaning: Assistance Provider Laundry/Cleaning Assistance Provider Name: Finances/Bill Paying: Assistance Provider Finances/Bill Payer Assistance Provider Name: Communication: Independent Types of Care Services/Equipment Utilized Care Services: Dialysis Type: NA Durable Medical Equipment: Cane, Walker, Wheelchair (standard or power) Patient's Goal/Discharge Plan Patient expects to be discharged to: home Discharge Planning Actions: Continue to follow Patient's Choice Rights and [employer] and Collaborative Relationships Disclosed as Indicated for Post-Acute Care: Interdisciplinary Team Engagement: Social Work Referral for: Additional Information: Spoke with patient at bedside. Introduced self and role. Discharge planning needs discussed. Patient denies any needs at this time. Patient in hospital due to abdominal pain and diarrhea. Patient states he hasn't been able to eat in 7 days. Patient was inpatient for several days for detox, was discharged 2 days ago. Sodium on admission was 124, now it's 129. TCC will continue to follow. 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 -DC on salt tablet, fluid restriction and zofran ODT for nausea. - follow up with CMP with PCP DENNYS due to dehydration- improved Elevated LFT due to alcohol liver disease - improving and stable, - follow up with CMP with PCP Acute diarrhea causing volume depletion/dehydration -stool studies negative -diarrhea improved History of hepatitis C Thrombocytopenia due to liver disease- improved mild leucopenia - likely from underlying liver disease, improved and stable Alcohol use disorder - addiction medicine consulted , detoxed - follow up with [facility] virtual program. Alcoholic liver disease /alcoholic cirrhosis -Status post liver biopsy December 2022 Severe malnutrition- decreased oral intake Chronic back pain - lidocaine patch Chronic opioid use - Chronic problems: 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 Hypertension Anxiety and depression Obstructive sleep apnea on Pap noncompliant Gastroesophageal reflux disease Anemia, stable H/H , no overt bleeding HOSPITAL COURSE: Admitted for abdominal pain and diarrhea. Stool studies negative and diarrhea improved. Addiction medicine consulted for acohol use and detoxed using as needed ativan. Serum na low due to dehydration, poor solute intake and underlying SIADH. Improved with salt tablet , fluid restriction. Nephrology consulted. DC home in stable condition with follow up with PCP in 1 week. CBC and CMP on follow up with PCP. SIGNIFICANT DIAGNOSTIC STUDIES: USG abdomen complete: Diffuse hepatic steatosis CONSULTANTS: ID, palliative care, nephrology RECOMMENDED NEXT STEPS: Follow up with PCP in 1 week. CBC, CMP on follow up with PCP Exam: BP (!) 142/88 (BP Location: Left arm, Patient Position: Sitting) Pulse 82 Temp 36.2 C (97.2 F) (Temporal) Resp 18 Ht 5' 10" (1.778 m) Wt 160 lb (72.6 kg) SpO2 100% BMI 22.96 kg/m General: alert, awake Chest : b/l equal air entry, no added sound CVS: s1,s2,mo PA: soft, NT, BS+ Ext; edema + Neuro: alert, awake, appropriate, no focal lateralizing signs noted. DISCHARGE MEDICATIONS: Medication List START taking these medications famotidine 20 MG tablet Commonly known as: Pepcid Take 1 tablet (20 mg) by mouth 2 times daily. folic acid 1 MG tablet Commonly known as: Folvite Take 1 tablet (1 mg) by mouth daily. Do not start before April 16, 2023. Start taking on: April 16, 2023 Lidocaine 4 % patch Place 1 patch on the skin daily. Do not start before April 16, 2023. Start taking on: April 16, 2023 ondansetron ODT 4 MG disintegrating tablet Commonly known as: Zofran-ODT Take 1 tablet (4 mg) by mouth every 8 hours as needed for nausea or vomiting for up to 7 days. thiamine 100 MG tablet Commonly known as: Vitamin B-1 Take 1 tablet (100 mg) by mouth daily. Do not start before April 16, 2023. Start taking on: April 16, 2023 CHANGE how you take these medications albuterol 108 (90 Base) MCG/ACT inhaler What changed: Another medication with the same name was removed. Continue taking this medication, and follow the directions you see here. CONTINUE taking these medications alendronate 70 MG tablet Commonly known as: Fosamax amLODIPine 2.5 MG tablet Commonly known as: Norvasc calcium carbonate 500 MG chewable tablet Commonly known as: Tums Chew 1 tablet (500 mg) daily. Do not start before February 15, 2023. cyanocobalamin 1000 MCG/ML injection Commonly known as: Vitamin B-12 dicyclomine 20 MG tablet Commonly known as: Bentyl Take 1 tablet (20 mg) by mouth in the morning and 1 tablet (20 mg) at noon and 1 tablet (20 mg) in the evening. Take before meals. Alana-C tablet fluticasone 50 MCG/ACT nasal spray Commonly known as: Flonase ipratropium-albuterol 0.5-2.5 mg/3 mL nebulizer solution Commonly known as: Duo-Neb ketoconazole 2 % shampoo Commonly known as: NIZOral levothyroxine 50 MCG tablet Commonly known as: Synthroid, Levoxyl TAKE 1 TABLET BY MOUTH DAILY losartan 100 MG tablet Commonly known as: Cozaar Take 1 tablet (100 mg) by mouth daily. Do not start before February 15, 2023. niacin 100 MG tablet nitroglycerin 0.4 MG SL tablet Commonly known as: Nitrostat oxyCODONE 10 MG immediate release tablet Commonly known as: Roxicodone potassium chloride ER 10 MEQ ER capsule Commonly known as: Micro-K sodium chloride 1 g tablet Take 1 tablet (1 g) by mouth in the morning and 1 tablet (1 g) in the evening. Take with meals. tamsulosin 0.4 MG 24 hr capsule Commonly known as: Flomax STOP taking these medications acetaminophen 325 MG tablet Commonly known as: Tylenol ipratropium 0.02 % nebulizer solution Commonly known as: Atrovent ondansetron 4 MG tablet Commonly known as: Zofran pantoprazole 40 MG EC tablet Commonly known as: ProtoNix Where to Get Your Medications These medications were sent to [facility] [address] [place] [address] Hours: Thursday to Thursday 10 am to 6 pm famotidine 20 MG tablet folic acid 1 MG tablet Lidocaine 4 % patch ondansetron ODT 4 MG disintegrating tablet thiamine 100 MG tablet DIET: Adult diet Regular; 1200 ml ACTIVITY: No restriction. COMPLEXITY OF FOLLOW UP: [x] Moderate Complexity: follow up within 7-14 calendar days (03197) [] Severe Complexity: follow up within 7 calendar days (25245) FOLLOW UP TESTING, PENDING RESULTS OR REFERRALS AT TRANSITIONAL CARE VISIT: [x] Yes [] No PENDING STUDIES: DISPOSITION: Home FACILITY/HOME CARE AGENCY NAME: Follow up with Jani Quezada [address] [facility] [address] [facility] [id number] Follow up in 1 week(s) cbc/CMP on follow up Ophelia Ramos, PRINCIPLE SOFTWARE ENGINEER - ANIMAL CONTROL SPECIALIST [address] [facility] [address] Follow up in 1 week(s) follow up kidney dr on INSTRUCTIONS TO MA/SW: Please call patient on day after discharge (must document patient contacted within 2 business days of discharge). FOLLOW UP QUESTIONS FOR MA/SW: 1. Did you get medications filled and taking them as instructed from discharge? 2. Are you following your discharge instructions from your hospital stay? 3. Please confirm patient is scheduled for a follow up appointment within the above time frame. DISCHARGE TIME: 45 min SIGNED: Ced Koenig MD 04/15/2023, 11:35 AM documented in this encounter [facility] 04-15-2023 Hospital Discharge instructions Ced Koenig MD - 04/15/2023 9:14 AM EDT BMP /CMP on follow up with PCP in 1 week. Follow up with PCP in 1 week. Lea Kim RN - 04/15/2023 11:15 AM EDT As tolerated or instructed by physician Lea Kim RN - 04/15/2023 9:32 AM EDT Fluid restriction of 1200 ml. Avoid processed foods high in salt, sugar, and alcohol Ced Koenig MD - 04/15/2023 9:32 AM EDT Continuity of Care Form Patient Name: Woody Ni : 1960 Admit date: 04/09/2023 Discharge date: Code Status Order: Full Code Advance Directives: N Admitting Physician: Rhiannon Barker MD PCP: Jani Quezada Discharging Nurse: Discharging Hospital Unit/Room#: B2-260/B2-260 A Discharging Unit Phone Number: Emergency Contact: Extended Emergency Contact Information Primary Emergency Contact: Kingsley Carl Relation: Spouse Past Surgical History: Past Surgical History: Procedure Laterality Date BACK SURGERY x 2 CHOLECYSTECTOMY LAMINECTOMY LAP,CHOLECYSTECTOMY (HISTORICAL) N/A 01/05/2023 WISDOM TOOTH EXTRACTION Immunization History: Immunization History Administered Date(s) Administered Influenza, injectable, quadrivalent 08/17/2015, 07/11/2016, 08/28/2017, 08/26/2018, 08/16/2019, 07/17/2020 Influenza, seasonal, injectable 07/18/2016 Pneumococcal Conjugate PCV 13 08/28/2017 Tdap 08/26/2018 Active Problems: Medical Problems Problem List * (Principal) Hyponatremia Hypovolemia Chronic alcoholic hepatitis Severe malnutrition (CMS/HCC) (HCC) (Chronic) Postural dizziness with presyncope Intractable nausea and vomiting Chronic pain syndrome Complication of surgical procedure Intercostal pain Low back pain Mild recurrent major depression (HCC) Myalgia Right hip pain Shoulder joint pain Acute kidney injury (CMS/HCC) (HCC) DENNYS (acute kidney injury) (CMS/HCC) (HCC) Gallbladder sludge RUQ pain Acute on chronic cholecystitis 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) Severe alcohol use disorder (HCC) (Chronic) Alcohol withdrawal syndrome without complication (HCC) Osteoarthritis of spine with radiculopathy, lumbar region Essential hypertension Diabetes (HCC) Cirrhosis (HCC) Asthma Thyroid disease SHAYLA (obstructive sleep apnea) Lumbar stenosis HLD (hyperlipidemia) Hepatitis Isolation/Infection: No active isolations No active infections Nurse Assessment: Last Vital Signs: BP (!) 142/88 (BP Location: Left arm, Patient Position: Sitting) Pulse 82 Temp 36.2 C (97.2 F) (Temporal) Resp 18 Ht 5' 10" (1.778 m) Wt 160 lb (72.6 kg) SpO2 100% BMI 22.96 kg/m Last documented pain score (0-10 scale): Last Weight: Wt Readings from Last 1 Encounters: 04/10/23 160 lb (72.6 kg) Mental Status: {ISAIAS Patient Mental Status:03471} IV Access: {ISAIAS IV Access:76410} Nursing Mobility/ADLs: Walking {GORDON ADL:83419::"Independent"} Transfer {GORDON ADL:82968::"Independent"} Bathing {GORDON ADL:97401::"Independent"} Dressing {GORDON ADL:44604::"Independent"} Toileting {GORDON ADL:29845::"Independent"} Feeding {GORDON ADL:61159::"Independent"} 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 {GORDON ADL:45929::"Independent"} Med Delivery {yes/no:41386} Wound Care Documentation and Therapy: Wound/Incision 01/05/23 Incision Abdomen - Upper Quadrant (Active) Number of days: 99 Elimination: Continence: Bowel: {yes/no:32682} Bladder: {yes/no:05737} Urinary Catheter: {ISAIAS Urinary Catheter:04576} Colostomy/Ileostomy/Ileal Conduit: {YES / NO:} Date of Last BM: Intake/Output Summary (Last 24 hours) at 04/15/2023 0932 Last data filed at 04/14/2023 1100 Gross per 24 hour Intake 320 ml Output -- Net 320 ml I/O last 3 completed shifts: In: 420 (5.8 mL/kg) [P.O.:320; I.V.:100 (1.4 mL/kg)] Out: 50 (0.7 mL/kg) [Urine:50 (0 mL/kg/hr)] Weight: 72.6 kg Safety Concerns: {ISAIAS Safety Concerns:29509} Impairments/Disabilities: {ISAIAS Impairments/Disabilities:73729} Nutrition Therapy: Current Nutrition Therapy: {ISAIAS Diet List:28617} Routes of Feeding: {routes of feedin} Liquids: {liquid consistency:48084} Daily Fluid Restriction: {daily fluid restriction:34229} Last Modified Barium Swallow with Video (Video Swallowing Test): {done not done:38985} Treatments at the Time of Hospital Discharge: Respiratory Treatments: Oxygen Therapy: {Therapy; copd oxygen:41267} Ventilator: {ISAIAS Ventilator:61149} Rehab Therapies: {GEN THERAPY DISCIPLINE SCAL:7093401} Weight Bearing Status/Restrictions: {POD WEIGHT BEARIN} Other Medical Equipment (for information only, NOT a DME order): {Assistive Devices DME:64916} Other Treatments: Patient's personal belongings (please select all that are sent with patient): {ISAIAS Patient Belongings:66829} RN SIGNATURE: {E-signature:76196} CASE MANAGEMENT/SOCIAL WORK SECTION Inpatient Status Date: Readmission Risk Assessment Score: @READMISSIONRISKDETAILS@ Discharging to Facility/ Agency Name: Address: Phone: Fax: Dialysis Facility (if applicable) Name: Address: Dialysis Schedule: Phone: Fax: Automotive T[employer] Worker/Wharf Helper signature: {E-signature:48907} PHYSICIAN SECTION Prognosis: {Rehab Prognosis:69624} Condition at Discharge: {Patient Condition:05888} Rehab Potential (if transferring to Rehab): {Rehab Prognosis:55879} Recommended Labs or Other Treatments After Discharge: Physician Certification: I certify the above information and transfer of Woody Ni is necessary for the continuing treatment of the diagnosis listed and that he requires {ISAIAS Level of Care:52124} for {greater less than:08579} 30 days. Update Admission H&P: {ISAIAS Changes in H&P:68957} PHYSICIAN SIGNATURE: {E-signature:74805} The following attachments cannot be sent through Care Everywhere.Hyponatremia (Portuguese)documented in this encounter [facility] 04-14-2023 Note Formatting of this n ote is different from the original. Images from the original note were not included. Care Management Progress Note TRANSITIONAL CARE DAILY NOTE/UPDATES: Patient remains on 2E due to hyponatremia. Clinical updates: Sodium today was 125., Patient states has pain when eating solid food, poor PO intake. Nephrology and addiction med following. Discharge plan: home when medically stable. Discharge obstacles: none noted. TCC to continue to follow. Discharge Milestones and Delays Expected Date/Time: 04/15/2023 Discharge provider: Richie Acosta MD Disposition: Home or Self Care Discharge Milestones Place discharge order Complete med reconciliation Case mgmt discharge readiness Clinical Stability Diagnsotic Workup Expected Discharge History Expected Date/Time Set By Reviewed At 04/15/2023 Monica Scott RN 04/14/2023 8:35 AM TCC estimate 04/14/2023 Monica Scott RN 04/13/2023 8:36 AM 04/13/2023 Monica Scott RN 04/10/2023 8:38 AM 04/13/2023 Richie Acosta MD 04/10/2023 7:43 AM 04/12/2023 Richie Acosta MD 04/10/2023 12:25 AM Length of Stay (Days): 4 GMLOS: 2.6 [facility] 04-14-2023 Note Formatting of this n ote is different from the original. Images from the original note were not included. Care Management Progress Note TRANSITIONAL CARE DAILY NOTE/UPDATES: Patient remains on 2E due to hyponatremia. Clinical updates: Sodium today was 125., Patient states has pain when eating solid food, poor PO intake. Nephrology and addiction med following. Discharge plan: home when medically stable. Discharge obstacles: none noted. TCC to continue to follow. Discharge Milestones and Delays Expected Date/Time: 04/15/2023 Discharge provider: Richie Acosta MD Disposition: Home or Self Care Discharge Milestones Place discharge order Complete med reconciliation Case mgmt discharge readiness Clinical Stability Diagnsotic Workup Expected Discharge History Expected Date/Time Set By Reviewed At 04/15/2023 Monica Scott RN 04/14/2023 8:35 AM TCC estimate 04/14/2023 Monica Scott RN 04/13/2023 8:36 AM 04/13/2023 Monica Scott RN 04/10/2023 8:38 AM 04/13/2023 Richie Acosta MD 04/10/2023 7:43 AM 04/12/2023 Richie Acosta MD 04/10/2023 12:25 AM Length of Stay (Days): 4 GMLOS: 2.6 [facility] 04-13-2023 Plan of care note The patient is Moderately Unstable - Medium risk of patient condition declining or worsening The patient's goals for the shift include rest The clinical goals for the shift include safety Over the shift, the patient did not make progress toward the following goals. Barriers to progression include none at this time. Recommendations to address these barriers include continue current care plan. T [facility] 04-13-2023 Note Formatting of this n ote might be different from the original. Patient may be discharged in a.m. to home, once electrolytes stabilize and nausea controlled, did well with PT and OT. [facility] 04-13-2023 Note Formatting of this n ote might be different from the original. Patient may be discharged in a.m. to home, once electrolytes stabilize and nausea controlled, did well with PT and OT. [facility] 04-13-2023 Note Formatting of this n ote is different from the original. Images from the original note were not included. Care Management Progress Note TRANSITIONAL CARE DAILY NOTE/UPDATES: Patient remains on 2E due to hyponatremia. Clinical updates: Sodium today was 127, magnesium was 0.9. Magnesium replaced via IV. Nephrology and addiction med following. Discharge plan: home when medically stable. Discharge obstacles: none noted. TCC to continue to follow. Discharge Milestones and Delays Expected Date/Time: 04/14/2023 Discharge provider: Richie Acosta MD Disposition: Home or Self Care Discharge Milestones Place discharge order Complete med reconciliation Case mgmt discharge readiness Clinical Stability Diagnsotic Workup Expected Discharge History Expected Date/Time Set By Reviewed At 04/14/2023 Monica Scott RN 04/13/2023 8:36 AM TCC estimate 04/13/2023 Monica Scott RN 04/10/2023 8:38 AM 04/13/2023 Richie Acosta MD 04/10/2023 7:43 AM 04/12/2023 Richie Acosta MD 04/10/2023 12:25 AM Length of Stay (Days): 3 GMLOS: 2.6 [facility] 04-13-2023 Note Formatting of this n ote is different from the original. Images from the original note were not included. Care Management Progress Note TRANSITIONAL CARE DAILY NOTE/UPDATES: Patient remains on 2E due to hyponatremia. Clinical updates: Sodium today was 127, magnesium was 0.9. Magnesium replaced via IV. Nephrology and addiction med following. Discharge plan: home when medically stable. Discharge obstacles: none noted. TCC to continue to follow. Discharge Milestones and Delays Expected Date/Time: 04/14/2023 Discharge provider: Richie Acosta MD Disposition: Home or Self Care Discharge Milestones Place discharge order Complete med reconciliation Case mgmt discharge readiness Clinical Stability Diagnsotic Workup Expected Discharge History Expected Date/Time Set By Reviewed At 04/14/2023 Monica Scott RN 04/13/2023 8:36 AM TCC estimate 04/13/2023 Monica Scott RN 04/10/2023 8:38 AM 04/13/2023 Richie Acosta MD 04/10/2023 7:43 AM 04/12/2023 Richie Acosta MD 04/10/2023 12:25 AM Length of Stay (Days): 3 GMLOS: 2.6 [facility] 04-13-2023 Note Formatting of this n ote might be different from the original. Met with patient and his significant other this afternoon to complete HCPOA paperwork. Copies given to patient and his girfriend. Copy placed in the chart. [facility] 04-13-2023 Note Formatting of this n ote might be different from the original. Met with patient and his significant other this afternoon to complete HCPOA paperwork. Copies given to patient and his girfriend. Copy placed in the chart. [facility] 04-13-2023 Note Formatting of this n ote might be different from the original. Met with patient at his bedside to discuss completing the HCPOA paperwork. Patient states he would like to designate his log term girlfriend of 25 years, Kingsley Carl. He states she will be in after work this afternoon around 2:00 and would like to complete it at that time. Will print the paperwork and have it ready. [facility] 04-13-2023 Note Formatting of this n ote might be different from the original. Met with patient at his bedside to discuss completing the HCPOA paperwork. Patient states he would like to designate his log term girlfriend of 25 years, Kingsley Carl. He states she will be in after work this afternoon around 2:00 and would like to complete it at that time. Will print the paperwork and have it ready. [facility] 04-11-2023 Note Formatting of this n ote might be different from the original. Provided patient with informational booklet on HCPOA and updated that will inform home health care social worker on Thursday that he would like to complete. Hcpoa paperwork. . [facility] 04-11-2023 Note Formatting of this n ote might be different from the original. Provided patient with informational booklet on HCPOA and updated that will inform home health care social worker on Thursday that he would like to complete. [facility] paperwork. . [facility] 04-11-2023 Consult note Associated Order (s): IP CONSULT TO DIETITIAN Nutrition Assessment Type and Reason for Visit: Initial Nutrition Recommendations/Plan: Continue: Regular diet with 1200 mL daily fluid restriction Assist and encourage room-ser vice participation to assure patient is ordering high protein foods with all meals Per MNT protocol, adjusted ONS Ensure High Protein (+160 kcal, 16 g protein, 240 mL/serving) Ensure Plus High Protein (+350 kcal, 20 g protein, 240 mL/serving) Please record % meals and oral nutrition supplements consumed in flow-sheet for most accurate nutrient intake assessment. Obtain actual standing scale weight as able for most accurate anthropometric data RDN to continue to monitor weekly: fluid accumulation, weight, skin integrity, trends in lab values, ability to meet > 75% estimated needs via PO and ONS, improvement in clinical status, discharge planning. Malnutrition Assessment: Malnutrition Status: Severe malnutrition Context: Social/Environmental Circumstances Findings of the 6 clinical characteristics of malnutrition: Energy Intake: Less than 75% estimated energy requirements for 3 months or longer Weight Loss: Mild weight loss (specify amount and time period) (-6.1% weight loss over six months per EMR) Body Fat Loss: Severe body fat loss Triceps, Orbital, Buccal region Muscle Mass Loss: Severe muscle mass loss Calf (gastrocnemius), Thigh (quadraceps), Clavicles (pectoralis & deltoids), Temples (temporalis) Fluid Accumulation: No significant fluid accumulation Sterilisation Technician Strength: Measurable reduction in health outcomes liaison strength Nutrition Assessment: 63 year old man with PMHX: anxiety, chronic pain syndrome, EtOH abuse (multiple admits over the past six months as result), liver cirrhosis, HTN, DMII(A1C=4.7% on 04/02/23); significant surgical history: S/p Laparoscopic cholecystectomy with liver biopsy (01/05/23). Most recently admitted to [facility] 04/02-04/07/23 requesting dextox, noted SHE on admit: 0.352. Currently presents to [facility] with inability to tolerate oral intake, nausea, emesis, and watery stooling. 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 Significant labs on admit: Na+(124), AST(103), ALT(58), Hb(10), Hct(28.5), unremarkable UA and -GI PCR panel. SHE(0.210). Admitted to F; ADM consulted and following, per their assessment: patient stated that shortly after leaving the hospital he relapsed and has been drinking on virtually daily basis since then . Nephrology consulted and following for hyponatremia. Resting in bed at time of visit, reports he was unable to eat this morning- did drink 100% ensure shake. Poor PO since leaving [facility] less than one week ago: I didn t eat when I was at [facility], and I didn t eat at home . Does like Ensure shakes- educated that Ensure is to supplement diet not replace meals, he verbalized understandings and agreeable to modifying ONS to between meals to encourage PO at meal times. Patient further endorses chronic mastication and swallowing issues. I haven t had diarrhea since 4 am I had it for the last 8 days . Consent obtained and NFPE completed. +Bed scale weight obtained: 78.4 kg or 172.8#. Cites unintentional weight loss over the past year, I used to be 240 pounds, now I m like 160 Estimated Daily Nutrient Needs: Energy Requirements Based On: Kcal/kg Weight Used for Energy Requirements: [place] Weight for Energy Calculation (kg): 75 kg Total Energy Requirements (kcals/day): 1812-9932 (25-30 kcal/kg IBW) Weight Used for Protein Requirements: [place] Weight in Kg Used for Protein Requirements: 75 kg Estimated Total Protein (g/day): 75-113 (1.0-1.5 g protien/kg IBW) Estimated Daily Total Fluid (ml/day): per MD Nutrition Related Findings: Pranav score=18, +multiple scratches and scabs. No edema noted. +I/O balance. Meds and labs reviewed. +Severe PCM on admit to [facility] earlier in the month Wound Type: None Current Nutrition Therapies: Adult diet Regular; 1200 ml Current Oral Intake Average Meal Intake: 1-25% Average Supplements Intake: 76-100% Anthropometric Measures: Height: 177.8 cm (5' 10") Current Body Weight: 78.4 kg (172 lb 13.5 oz) Weight Source: Bed Scale Admission Body Weight: 72.1 kg (159 lb) (stated 04/09/23) Usual Body Weight: 83.5 kg (184 lb) (11/07/22; 177# 01/28/23) % Weight Change (Calculated): -6.1 [place] Body Weight (lbs) (Calculated): 166 lbs [place] Body Weight (Kg) (Calculated): 75 kg % [place] Body Weight (Calculated): 104.1 % BMI (kg/m2) (Calculated): 24.8 Weight Adjustment For: No Adjustment BMI Categories: Normal Weight (BMI 18.5-24.9) Nutrition Diagnosis: Severe malnutrition, In context of social or environmental circumstances related to inadequate protein-energy intake as evidenced by severe loss of subcutaneous fat, severe muscle loss, poor intake prior to admission, Criteria as identified in malnutrition assessment Altered GI function related to biting/chewing (masticatory) difficulty, swallowing difficulty as evidenced by (patient report) Nutrition Interventions: Nutrition Education/Counseling: Education not indicated Coordination of Nutrition Care: Continue to monitor while inpatient Plan of Care discussed with: MEGGAN weeks, ALEX Goals: Goals: Meet at least 75% of estimated needs (via PO and ONS) Nutrition Monitoring and Evaluation: Behavioral-Environmental Outcomes: Readiness for Change Food/Nutrient Intake Outcomes: Food and Nutrient Intake, Supplement Intake Physical Signs/Symptoms Outcomes: Meal Time Behavior, Chewing or Swallowing, Biochemical Data, Hemodynamic Status, Nutrition Focused Physical Findings, Weight, GI Status, Nausea or Vomiting, Fluid Status or Edema, Skin Discharge Planning: Continue current diet, Continue Oral Nutrition Supplement Mona Gardiner RDN, LDN, Contact: *[phone] [facility] 04-11-2023 Consult note Associated Order (s): IP CONSULT TO DIETITIAN Nutrition Assessment Type and Reason for Visit: Initial Nutrition Recommendations/Plan: Continue: Regular diet with 1200 mL daily fluid restriction Assist and encourage room-ser vice participation to assure patient is ordering high protein foods with all meals Per MNT protocol, adjusted ONS Ensure High Protein (+160 kcal, 16 g protein, 240 mL/serving) Ensure Plus High Protein (+350 kcal, 20 g protein, 240 mL/serving) Please record % meals and oral nutrition supplements consumed in flow-sheet for most accurate nutrient intake assessment. Obtain actual standing scale weight as able for most accurate anthropometric data RDN to continue to monitor weekly: fluid accumulation, weight, skin integrity, trends in lab values, ability to meet > 75% estimated needs via PO and ONS, improvement in clinical status, discharge planning. Malnutrition Assessment: Malnutrition Status: Severe malnutrition Context: Social/Environmental Circumstances Findings of the 6 clinical characteristics of malnutrition: Energy Intake: Less than 75% estimated energy requirements for 3 months or longer Weight Loss: Mild weight loss (specify amount and time period) (-6.1% weight loss over six months per EMR) Body Fat Loss: Severe body fat loss Triceps, Orbital, Buccal region Muscle Mass Loss: Severe muscle mass loss Calf (gastrocnemius), Thigh (quadraceps), Clavicles (pectoralis & deltoids), Temples (temporalis) Fluid Accumulation: No significant fluid accumulation Sterilisation Technician Strength: Measurable reduction in health outcomes liaison strength Nutrition Assessment: 63 year old man with PMHX: anxiety, chronic pain syndrome, EtOH abuse (multiple admits over the past six months as result), liver cirrhosis, HTN, DMII(A1C=4.7% on 04/02/23); significant surgical history: S/p Laparoscopic cholecystectomy with liver biopsy (01/05/23). Most recently admitted to [facility] 04/02-04/07/23 requesting dextox, noted SHE on admit: 0.352. Currently presents to [facility] with inability to tolerate oral intake, nausea, emesis, and watery stooling. 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 Significant labs on admit: Na+(124), AST(103), ALT(58), Hb(10), Hct(28.5), unremarkable UA and -GI PCR panel. SHE(0.210). Admitted to F; ADM consulted and following, per their assessment: patient stated that shortly after leaving the hospital he relapsed and has been drinking on virtually daily basis since then . Nephrology consulted and following for hyponatremia. Resting in bed at time of visit, reports he was unable to eat this morning- did drink 100% ensure shake. Poor PO since leaving [facility] less than one week ago: I didn t eat when I was at [facility], and I didn t eat at home . Does like Ensure shakes- educated that Ensure is to supplement diet not replace meals, he verbalized understandings and agreeable to modifying ONS to between meals to encourage PO at meal times. Patient further endorses chronic mastication and swallowing issues. I haven t had diarrhea since 4 am I had it for the last 8 days . Consent obtained and NFPE completed. +Bed scale weight obtained: 78.4 kg or 172.8#. Cites unintentional weight loss over the past year, I used to be 240 pounds, now I m like 160 Estimated Daily Nutrient Needs: Energy Requirements Based On: Kcal/kg Weight Used for Energy Requirements: [place] Weight for Energy Calculation (kg): 75 kg Total Energy Requirements (kcals/day): 3996-7460 (25-30 kcal/kg IBW) Weight Used for Protein Requirements: [place] Weight in Kg Used for Protein Requirements: 75 kg Estimated Total Protein (g/day): 75-113 (1.0-1.5 g protien/kg IBW) Estimated Daily Total Fluid (ml/day): per MD Nutrition Related Findings: Pranav score=18, +multiple scratches and scabs. No edema noted. +I/O balance. Meds and labs reviewed. +Severe PCM on admit to [facility] earlier in the month Wound Type: None Current Nutrition Therapies: Adult diet Regular; 1200 ml Current Oral Intake Average Meal Intake: 1-25% Average Supplements Intake: 76-100% Anthropometric Measures: Height: 177.8 cm (5' 10") Current Body Weight: 78.4 kg (172 lb 13.5 oz) Weight Source: Bed Scale Admission Body Weight: 72.1 kg (159 lb) (stated 04/09/23) Usual Body Weight: 83.5 kg (184 lb) (11/07/22; 177# 01/28/23) % Weight Change (Calculated): -6.1 [place] Body Weight (lbs) (Calculated): 166 lbs [place] Body Weight (Kg) (Calculated): 75 kg % [place] Body Weight (Calculated): 104.1 % BMI (kg/m2) (Calculated): 24.8 Weight Adjustment For: No Adjustment BMI Categories: Normal Weight (BMI 18.5-24.9) Nutrition Diagnosis: Severe malnutrition, In context of social or environmental circumstances related to inadequate protein-energy intake as evidenced by severe loss of subcutaneous fat, severe muscle loss, poor intake prior to admission, Criteria as identified in malnutrition assessment Altered GI function related to biting/chewing (masticatory) difficulty, swallowing difficulty as evidenced by (patient report) Nutrition Interventions: Nutrition Education/Counseling: Education not indicated Coordination of Nutrition Care: Continue to monitor while inpatient Plan of Care discussed with: MEGGAN weeks, SW Goals: Goals: Meet at least 75% of estimated needs (via PO and ONS) Nutrition Monitoring and Evaluation: Behavioral-Environmental Outcomes: Readiness for Change Food/Nutrient Intake Outcomes: Food and Nutrient Intake, Supplement Intake Physical Signs/Symptoms Outcomes: Meal Time Behavior, Chewing or Swallowing, Biochemical Data, Hemodynamic Status, Nutrition Focused Physical Findings, Weight, GI Status, Nausea or Vomiting, Fluid Status or Edema, Skin Discharge Planning: Continue current diet, Continue Oral Nutrition Supplement Mona Gardiner RDN, LDN, Contact: [phone] Associated Order(s): IP CONSULT TO ADDICTION MEDICINE Images from the original note were not included. Addiction Medicine Patient: Woody Ni Admit Date: 04/09/2023 Primary Care Physician: Jani Quezada History of Present Illness The patient is a 63-year-old male presenting to [facility] for stabilization of alcohol dependence/withdrawal. Patient is known to chemical dependency services, and was recently detoxified at [facility] from April 03 to April 07. He stated that shortly after leaving the hospital he relapsed and has been drinking on virtually daily basis since then. There is a clear history of loss of control, increased tolerance, continued use despite adverse consequences, inability to abstain successfully on his own. Withdrawal positive for anxiety, sweats, tremors but there is no documented of DTs or seizures. History of falling on several occasions while intoxicated. In reference to previous treatment, he has never been involved in any formal outpatient treatment or 12-step involvement. At one point in time he was abstinent from alcohol for 2 years but relapsed 6 years ago. Psychiatric history noncontributory Past medical history fairly extensive pertinent hypertension hypothyroidism GERD self reflux, BPH, neuropathy, hyponatremia. He is admitted under the medical service. Social History Socioeconomic History Marital status: Spouse name: Not on file Number of children: Not on file Years of education: Not on file Highest education level: Not on file Occupational History Not on file Tobacco Use Smoking status: Every Day Types: Cigars Last attempt to quit: 1982 Years since quittin.5 Smokeless tobacco: Former Vaping Use Vaping Use: Every day Substances: CBD, canabis Devices: Disposable Substance and Sexual Activity Alcohol use: Yes Alcohol/week: 42.0 standard drinks of alcohol Types: 42 Cans of beer per week Comment: TALL BOY ARE DOUBLE BEERS 42 per week Drug use: Yes Types: Marijuana Comment: daily Sexual activity: Not on file Other Topics Concern Not on file Social History Narrative Not on file Social Determinants of Health Financial Resource Strain: Not on file Food Insecurity: Not on file Transportation Needs: No Transportation Needs (04/03/2023) PRAPARE - Transportation Lack of Transportation (Medical): No Lack of Transportation (Non-Medical): No Physical Activity: Inactive (04/03/2023) Exercise Vital Sign Days of Exercise per Week: 0 days Minutes of Exercise per Session: 0 min Stress: No Stress Concern Present (04/03/2023) [employer] [place] [employer] - Occupational Stress Questionnaire Feeling of Stress : Not at all Social Connections: Not on file Intimate Partner Violence: Not At Risk (02/11/2023) Humiliation, Afraid, Rape, and Kick questionnaire Fear of Current or Ex-Partner: No Emotionally Abused: No Physically Abused: No Sexually Abused: No Housing Stability: Low Risk (04/03/2023) Housing Stability Vital Sign Unable to Pay for Housing in the Last Year: No Number of Places Lived in the Last Year: 1 Unstable Housing in the Last Year: No 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 Nausea and vomiting 12/22/22-12/26/22 admitted at [facility] Pain management Sleep apnea noncompliant with device Past Surgical History: Procedure Laterality Date BACK SURGERY x 2 CHOLECYSTECTOMY LAMINECTOMY LAP,CHOLECYSTECTOMY (HISTORICAL) N/A 01/05/2023 WISDOM TOOTH EXTRACTION Family History Problem Relation Name Age of Onset Depression Mother Depression Maternal Grandmother Labs Recent Results (from the past 48 hour(s)) ECG 12 lead Collection Time: 04/09/23 8:35 PM Result Value Ref Range Heart Rate 104 bpm QRSD Interval 140 ms QT Interval 368 ms QTC Interval 485 ms P [place] 106 degrees QRS [place] -40 degrees T Wave [place] 7 degrees TX Interval 158 ms Comprehensive metabolic panel Collection Time: 04/09/23 8:36 PM Result Value Ref Range SODIUM 124 (L) 135 - 145 mmol/L POTASSIUM 3.9 3.5 - 5.1 mmol/L CHLORIDE 93 (L) 98 - 107 mmol/L CARBON DIOXIDE 19 (L) 22 - 30 mmol/L ANION GAP 12 3 - 13 mmol/L UREA NITROGEN 9 9 - 20 mg/dL CREATININE 1.04 0.66 - 1.25 mg/dL GLUCOSE 110 (H) 70 - 100 mg/dL CALCIUM 8.7 8.4 - 10.4 mg/dL AST (SGOT) 103 (H) 15 - 46 U/L ALT 58 (H) 0 - 49 U/L ALKALINE PHOSPHATASE 63 38 - 126 U/L ALBUMIN 3.8 3.5 - 5.0 g/dL BILIRUBIN, TOTAL 0.3 0.2 - 1.3 mg/dL TOTAL PROTEIN 6.6 6.3 - 8.2 g/dL eGFR 80.7 >60.0 mL/min/1.73m*2 CBC Collection Time: 04/09/23 8:36 PM Result Value Ref Range Auto WBC 3.3 (L) 3.6 - 10.7 10*3/uL RBC 2.95 (L) 4.40 - 5.90 10*6/uL Hemoglobin 10.0 (L) 13.0 - 18.0 g/dL Hematocrit 28.5 (L) 40.0 - 52.0 % MCV 96.6 80.0 - 98.0 fL MCH 33.9 26.0 - 34.0 pg MCHC 35.1 32.0 - 36.0 % RDW 12.8 11.5 - 14.5 % Platelets 106 (L) 140 - 440 10*3/uL MPV 9.2 7.4 - 12.4 fL Lipase Collection Time: 04/09/23 8:36 PM Result Value Ref Range LIPASE 287 23 - 300 U/L Troponin I Collection Time: 04/09/23 8:36 PM Result Value Ref Range TROPONIN I <0.012 0.000 - 0.034 ng/mL Protime-INR Collection Time: 04/09/23 8:36 PM Result Value Ref Range PROTHROMBIN TIME 11.3 9.0 - 12.0 s INR 1.0 0.9 - 1.1 Ethanol Collection Time: 04/09/23 8:36 PM Result Value Ref Range ETHANOL IN SER/PLAS 0.210 (H) 0.000 - 0.010 g/dL Complete Urinalysis Collection Time: 04/09/23 9:29 PM Result Value Ref Range Color, Urine Colorless Lt. Yellow Clarity, Urine Clear Clear pH, Urine 5.5 5.0 - 8.0 pH Leukocytes, Urine Negative Negative Emma/uL Nitrite, Urine Negative Negative Protein, Urine Negative Negative mg/dL Glucose, Urine Normal Normal (<70) mg/dL Bilirubin, Urine Negative Negative mg/dL Ketones, Urine Negative Negative mg/dL Urobilinogen, Urine Normal Normal (0-1) mg/dL Blood, Urine Negative Negative mg/dL SPECIFIC GRAVITY OF URINE (NUMERIC) 1.002 (L) 1.005 - 1.030 Gastrointestinal PCR Panel Collection Time: 04/09/23 10:21 PM Specimen: Per Rectum; Stool Result Value Ref Range Campylobacter Not Detected Not Detected Plesiomonas shigelloides Not Detected Not Detected Salmonella Not Detected Not Detected Vibrio species Not Detected Not Detected Vibrio cholerae Not Detected Not Detected Yersinia enterocolitica Not Detected Not Detected Enterotoxigenic E coli (ETEC) Not Detected Not Detected Shiga toxin-producing E coli (STEC) Not Detected Not Detected Shigella/Enteroinvasive E coli (EIEC) Not Detected Not Detected Cryptosporidium Not Detected Not Detected Cyclospora cayetanensis Not Detected Not Detected Entamoeba histolytica Not Detected Not Detected Giardia lamblia Not Detected Not Detected Adenovirus F 40/41 Not Detected Not Detected Astrovirus Not Detected Not Detected Norovirus GI/GII Not Detected Not Detected Rotavirus A Not Detected Not Detected Sapovirus Not Detected Not Detected Osmolality Collection Time: 04/10/23 2:15 AM Result Value Ref Range OSMOLALITY, SERUM 286 280 - 300 mOsm/kg Osmolality, urine Collection Time: 04/10/23 2:20 AM Result Value Ref Range OSMOLALITY, URINE 88 (L) 300 - 1,000 mOsm/kg Sodium, urine, random Collection Time: 04/10/23 2:20 AM Result Value Ref Range SODIUM, URINE 8 (L) 30 - 90 mmol/L Comprehensive metabolic panel Collection Time: 04/10/23 5:29 AM Result Value Ref Range SODIUM 129 (L) 135 - 145 mmol/L POTASSIUM 4.1 3.5 - 5.1 mmol/L CHLORIDE 101 98 - 107 mmol/L CARBON DIOXIDE 23 22 - 30 mmol/L ANION GAP 5 3 - 13 mmol/L UREA NITROGEN 6 (L) 9 - 20 mg/dL CREATININE 0.94 0.66 - 1.25 mg/dL GLUCOSE 83 70 - 100 mg/dL CALCIUM 8.2 (L) 8.4 - 10.4 mg/dL AST (SGOT) 142 (H) 15 - 46 U/L ALT 62 (H) 0 - 49 U/L ALKALINE PHOSPHATASE 54 38 - 126 U/L ALBUMIN 3.3 (L) 3.5 - 5.0 g/dL BILIRUBIN, TOTAL 0.3 0.2 - 1.3 mg/dL TOTAL PROTEIN 6.0 (L) 6.3 - 8.2 g/dL eGFR >90.0 >60.0 mL/min/1.73m*2 TSH Collection Time: 04/10/23 5:29 AM Result Value Ref Range THYROID STIMULATING HORMONE 3.864 0.465 - 4.680 uIU/mL Complete Urinalysis Collection Time: 04/10/23 12:39 PM Result Value Ref Range Color, Urine Light Yellow Lt. Yellow Clarity, Urine Clear Clear pH, Urine 5.5 5.0 - 8.0 pH Leukocytes, Urine Negative Negative Emma/uL Nitrite, Urine Negative Negative Protein, Urine Negative Negative mg/dL Glucose, Urine Normal Normal (<70) mg/dL Bilirubin, Urine Negative Negative mg/dL Ketones, Urine Negative Negative mg/dL Urobilinogen, Urine Normal Normal (0-1) mg/dL Blood, Urine Negative Negative mg/dL SPECIFIC GRAVITY OF URINE (NUMERIC) 1.006 1.005 - 1.030 Sodium, urine, random Collection Time: 04/10/23 12:39 PM Result Value Ref Range SODIUM, URINE 41 30 - 90 mmol/L Osmolality, urine Collection Time: 04/10/23 12:39 PM Result Value Ref Range OSMOLALITY, URINE 230 (L) 300 - 1,000 mOsm/kg Medications Home Meds: Prior to Admission medications Medication Sig Start Date End Date Taking? Authorizing Provider acetaminophen (Tylenol) 325 MG tablet every 4 hours as needed. Historical ProviderMD albuterol (2.5 MG/3ML) 0.083% nebulizer solution Take 2.5 mg by nebulization 2 times daily as needed. PRN Historical ProviderMD albuterol 108 (90 Base) MCG/ACT inhaler Inhale 1 puff every 4 hours as needed. Historical Provider, alendronate (Fosamax) 70 MG tablet Take 70 mg by mouth once a week. 05/19/17 Historical ProviderMD amLODIPine (Norvasc) 2.5 MG tablet Take 2.5 mg by mouth in the morning. 05/27/17 Historical ProviderMD Bioflavonoid Products (Alana-C) tablet Every 24 hours. Historical Provider, calcium carbonate (Tums) 500 MG chewable tablet Chew 1 tablet (500 mg) daily. Do not start before February 15, 2023. 02/15/23 02/15/24 Kacie Benz DO cyanocobalamin (Vitamin B-12) 1000 MCG/ML injection 1 mL intramuscularly once a month Historical Provider, dicyclomine (Bentyl) 20 MG tablet Take 1 tablet (20 mg) by mouth in the morning and 1 tablet (20 mg) at noon and 1 tablet (20 mg) in the evening. Take before meals. 11/07/22 11/07/23 Beryl Holder PA-C fluticasone (Flonase) 50 MCG/ACT nasal spray Administer 1 spray into each nostril daily as needed. 04/27/17 Historical Provider, ipratropium (Atrovent) 0.02 % nebulizer solution PRN 05/04/17 Historical Provider, ipratropium-albuterol (Duo-Neb) 0.5-2.5 mg/3 mL nebulizer solution every 6 hours. Historical Provider, ketoconazole (NIZOral) 2 % shampoo EVERY THREE DAYS 11/18/19 Historical Provider, levothyroxine (Synthroid, Levoxyl) 50 MCG tablet TAKE 1 TABLET BY MOUTH DAILY 06/06/22 06/06/23 Nicolas Qiu losartan (Cozaar) 100 MG tablet Take 1 tablet (100 mg) by mouth daily. Do not start before February 15, 2023. 02/15/23 02/15/24 Kacie Benz DO niacin 100 MG tablet Every 24 hours. Historical Provider, nitroglycerin (Nitrostat) 0.4 MG SL tablet 1 tab(s) sublingually every 5 minutes x 3 doses prn Historical Provider, ondansetron (Zofran) 4 MG tablet Every 24 hours. Historical Provider, oxyCODONE (Roxicodone) 10 MG immediate release tablet Take 10 mg by mouth in the morning and 10 mg at noon and 10 mg in the evening and 10 mg before bedtime. 05/29/17 Historical Provider, pantoprazole (ProtoNix) 40 MG EC tablet Take 40 mg by mouth daily. Historical Provider, potassium chloride ER (Micro-K) 10 MEQ ER capsule Take 10 mEq by mouth in the morning. 03/30/17 Historical ProviderMD sodium chloride 1 g tablet Take 1 tablet (1 g) by mouth in the morning and 1 tablet (1 g) in the evening. Take with meals. 02/14/23 02/14/24 Kacie Benz, tamsulosin (Flomax) 0.4 MG 24 hr capsule Take 0.4 mg by mouth daily. 01/27/22 Historical Provider, Inpatient Scheduled Meds: amLODIPine, 2.5 mg, Oral, Daily calcium carbonate, 500 mg, Oral, Daily dicyclomine, 20 mg, Oral, TID AC folic acid, 1 mg, Oral, Daily [START ON 04/11/2023] levothyroxine, 50 mcg, Oral, qAM AC Lidocaine, 2 patch, TransDERmal, Daily losartan, 100 mg, Oral, Daily pantoprazole, 40 mg, Oral, Daily sodium chloride, 1 g, Oral, BID WC tamsulosin, 0.4 mg, Oral, Daily Thiamine Mononitrate, 100 mg, Oral, Daily Inpatient PRN Meds: PRN medications: albuterol, loperamide, LORazepam OR LORazepam OR LORazepam OR LORazepam OR LORazepam OR LORazepam OR LORazepam OR LORazepam, ondansetron ODT OR ondansetron, oxyCODONE, polyethylene glycol (PEG) 3350 Exam Vitals: 04/10/23 0700 04/10/23 0758 04/10/23 0828 04/10/23 1120 BP: (!) 142/80 (!) 143/88 BP Location: Left arm Left arm Patient Position: Lying Lying Pulse: 92 91 96 Resp: 18 18 Temp: 36.9 C (98.4 F) 37.2 C (98.9 F) TempSrc: Temporal Temporal SpO2: 97% 98% 97% Weight: 160 lb (72.6 kg) Height: 5' 10" (1.778 m) Physical Exam In meeting with the patient, he was resting at bedside. He is slightly disheveled but is not flushed or diaphoretic. Mild to moderate resting tremors noted. Oriented x4, pleasant, cooperative. There are no auditory, tactile or visual disturbances. He is quite remorseful about his relapse and is committed to do what ever is necessary to stabilize his recovery. Assessment & Plan At this point in time we will continue detox regimen, lorazepam on a as needed basis for alcohol withdrawal symptomatology. He had made a commitment to follow-up with [facility]. Hopefully he will return to this program after he is released from the hospital. We will follow FLAVIO SHERMAN MD Addiction Medicine 04/10/2023 at 1:49 PM -55- minutes were spent reviewing the patient's records, evaluating the patient, entering orders, coordinating care with the treatment team, and creating a progress note. Narrative portions of the note are written utilizing [employer] software. While every effort is made to dictate clearly and proofread, errors in the dictation may still occur. If there are any questions regarding the dictation please do not hesitate to contact the author. Associated Order(s): IP CONSULT TO PALLIATIVE CARE Images from the original note were not included. Palliative Care Initial Consult Chief Complaint: Woody Ni is a 63 y.o. male with chief complaint of hyponatremia, abdominal pain Palliative Care provider will follow-up on 04/13/23. Assessment/Plan Goals of Care - FULL - pt does not advance care planning documents in [facility] - Kingsley [place] (significant other x 25 years): [phone] - pts goal is to abstain from Etoh so he can continue to be prescribed oxycodone - he is interested in inpatient ETOH detox - pt is not . Has long time partner Kingsley - no biological children - Father is still living --> in his late 80s - consult to assist with HCPOA paperwork Chronic opioid prescription use - follows with [facility], [address] --> [phone] - opiates prescribed since 2016 by above - has been on opiates since 2002 - per pt Pain Management team said they would not prescribe oxycodone while he was using alcohol - agree with low dose oxycodone order in place, 5mg q6hrs prn Hyponatremia - chronic --> 118-128 in January 2023; 126 in May 2023 - 124 on admission, now 129 - on fluid restriction of 1200mL - pt wanting to drink ensure as well --> will ask for dietary input/support ETOH Abuse / dependence - recent detox, however resumed active use after discharged - on CIWA protocol - pt states he is wanting to abstain from alcohol so he is able to be prescribed oxycodone for his chronic pain Diarrhea - infectious work up neg - TSH ordered and pending - opiate withdrawal high on differential - add imodium prn Liver Cirrhosis - s/p liver biopsy 12/2022 - no signs of end stage disease --> no ascites, pt denies esoph varices, no encephalopathy - alb 3.8, INR 1.0 - MELD-Na 16 --> <2% 90 day mortality Chronic pain - back and abdominal - agree with lidoderm patches - limited tylenol, 2 grams daily (okay in setting of cirrhosis) an option as well - abdominal exam benign Palliative Care Encounter - plan as above - will sign off Discharge planning: Ready for discharge from Palliative Care perspective, no follow-up needed Patient meets criteria for general inpatient hospice care including the following: N/A - Palliative Care Patient Referrals to: Social work Discussed patient and the plan of care with the other interdisciplinary team (IDT) members of Palliative Care Team, and with Primary Attending and Patient Subjective: Hospital days prior to consult: 1 Subjective/Events 63 y/o man with h/o alcohol use disorder, liver cirrhosis, HTN, hyponatremia, 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 Pt was discharged from inpatient alcohol detox 2 days prior to presentation. Per documentation chronic opioids were stopped by pain management 10 days ago. Na in ED was 124. Pt takes salt tablets at home. He is a full code. Palliative team is consulted to assist with advanced directives, pain and GOC. Pain Assessment (If Pain Scale >0) Description: aching, stabbing, and throbbing Duration: year(s) Frequency:Daily Location: abdomen and back Alleviating Factors: pain medication Exacerbating Factors: unable to associate with any factor Effect:Change in Function and Interference with Activities Goals of care:Improve or Maintain Function/Quality of Life Advance Directives: Full Code Surrogate: pt wanting to complete HCPOA Prognosis: unknown Spiritual assessment: No spiritual distress identified Bereavement and grief: Grief Issues Not Identified 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 Nausea and vomiting 12/22/22-12/26/22 admitted at [facility] Pain management Sleep apnea noncompliant with device Past Surgical History: Procedure Laterality Date BACK SURGERY x 2 CHOLECYSTECTOMY LAMINECTOMY LAP,CHOLECYSTECTOMY (HISTORICAL) N/A 01/05/2023 WISDOM TOOTH EXTRACTION Family History Problem Relation Name Age of Onset Depression Mother Depression Maternal Grandmother Unable to obtain family history due to N/A- family history available Allergies Allergen Reactions Allopurinol Other Breaks out in blisters Codeine Nausea Only Penicillin G Swelling Review of Systems Constitutional: Negative for fever and unexpected weight change. HENT: Positive for sore throat. Eyes: Negative for visual disturbance. Respiratory: Negative for shortness of breath. Cardiovascular: Negative for chest pain and leg swelling. Gastrointestinal: Positive for abdominal pain, diarrhea, nausea and vomiting. Musculoskeletal: Positive for back pain. Neurological: Negative for seizures, syncope and headaches. Hematological: Does not bruise/bleed easily. Psychiatric/Behavioral: Negative for agitation and confusion. ROS: See palliative care ROS/ESAS below; [place] Symptom Assessment Score [place] Score Pain Score "High" Tiredness Score 5 Nausea Score 0 Depression Score 0 Anxiety Score 0 Drowsiness Score 0 Anorexia Score (0= eating well, 10= not eating) 0 Wellbeing Score (10= worst sense of well-being) 5 Constipation 0 Dyspnea Score (0= no shortness of breath) 0 Assessed by: patient and provider. 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 Constitutional: General: He is not in acute distress. Appearance: He is not diaphoretic. Comments: Sitting up in bed, smiling, engaged HENT: Head: Normocephalic and atraumatic. Nose: Nose normal. No rhinorrhea. Mouth/Throat: Pharynx: Oropharynx is clear. No oropharyngeal exudate. Comments: edentulous Eyes: General: No scleral icterus. Conjunctiva/sclera: Conjunctivae normal. Cardiovascular: Rate and Rhythm: Normal rate. Pulses: Normal pulses. Heart sounds: No murmur heard. Pulmonary: Effort: Pulmonary effort is normal. No respiratory distress. Breath sounds: No wheezing or rhonchi. Abdominal: General: There is no distension. Palpations: Abdomen is soft. Tenderness: There is no abdominal tenderness. There is no guarding. Musculoskeletal: Right lower leg: No edema. Left lower leg: No edema. Skin: General: Skin is warm and dry. Coloration: Skin is not jaundiced. Findings: No bruising. Neurological: Mental Status: He is alert and oriented to person, place, and time. Psychiatric: Mood and Affect: Mood normal. Behavior: Behavior normal. Thought Content: Thought content normal. Judgment: Judgment normal. Current Medications: Inpatient medications reviewed: yes Home medications reviewed: yes OARRS Reviewed: Yes-monthly scripts for oxycodone 10mg, #120, 30days; last filled 03/12/23 24 Hour PRN Meds: oxycodone 5mg x 1 Results/Verification of Data Review Objective data reviewed (be specific which labs, imaging reports with dates reviewed): 04/10/23 MAR/vitals/BMP Data in Support of Terminal Illness: Is patient hospice appropriate? no Transition Note Initiated: no. Signing off . Woody Ni has been seen in consultation by [facility] during their admission to [facility]. They currently have no uncontrolled symptoms and have established goals of care and we have signed off of their case. The patient has established follow-up with chronic pain management. Associated Order(s): IP CONSULT TO NEPHROLOGY [facility] Consult Note Reason for Consult: hyponatremia Requesting Physician: Daja Johnson MD Chief Complaint: Chief Complaint Patient presents with Abdominal Pain History of Present Ilness: Woody is a 63 y.o. male with PMH per EMR including alcoholism, chronic pain syndrome, cirrhosis, diabetes, hypertension, hyponatremia, prior cholecystectomy, presents concern for abdominal pain, diarrhea. Patient reports he was hospitalized for alcohol detox for the last week. He describes achy pain throughout his abdomen, he denies fever chills, cough, chest pain, shortness of breath, lightheadedness or dizziness, denies hematochezia or melena, dysuria, or other symptoms or concerns. He reports he last drank 2 beers earlier yesterday, otherwise has not drank for the last week. Patient denies recent antibiotic use. Of note, he was seeing pain management and getting opioids outpatient but was stopped 10 days ago by pain management during ETOH use disorder per patient. Nephrology is asked to see the patient for hyponatremia. Patient currently has an Na level of 129, previously 124 and has a chronically low baseline of ~130. He reports over the last 7 days he has had poor p.o. tolerance including nausea vomiting and watery bowel movements, he endorses diffuse abdominal pain that is ongoing and unchanged for the last 10 years (of note: in [facility], he followed with surgery and had cholecystectomy/liver biopsy in december of this year - biopsy consistent with liver cirrhosis). Denies issues with UOP. No recent falls. No use of thiazides. Daily smoker +ve. 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 Current Outpatient Medications on File Prior to Encounter Medication Sig Dispense Refill acetaminophen (Tylenol) 325 MG tablet every 4 hours as needed. albuterol (2.5 MG/3ML) 0.083% nebulizer solution Take 2.5 mg by nebulization 2 times daily as needed. PRN albuterol 108 (90 Base) MCG/ACT inhaler Inhale 1 puff every 4 hours as needed. alendronate (Fosamax) 70 MG tablet Take 70 mg by mouth once a week. amLODIPine (Norvasc) 2.5 MG tablet Take 2.5 mg by mouth in the morning. Bioflavonoid Products (Alana-C) tablet Every 24 hours. calcium carbonate (Tums) 500 MG chewable tablet Chew 1 tablet (500 mg) daily. Do not start before February 15, 2023. 30 tablet 11 cyanocobalamin (Vitamin B-12) 1000 MCG/ML injection 1 mL intramuscularly once a month dicyclomine (Bentyl) 20 MG tablet Take 1 tablet (20 mg) by mouth in the morning and 1 tablet (20 mg) at noon and 1 tablet (20 mg) in the evening. Take before meals. 90 tablet 1 fluticasone (Flonase) 50 MCG/ACT nasal spray Administer 1 spray into each nostril daily as needed. ipratropium (Atrovent) 0.02 % nebulizer solution PRN ipratropium-albuterol (Duo-Neb) 0.5-2.5 mg/3 mL nebulizer solution every 6 hours. ketoconazole (NIZOral) 2 % shampoo EVERY THREE DAYS levothyroxine (Synthroid, Levoxyl) 50 MCG tablet TAKE 1 TABLET BY MOUTH DAILY 30 tablet 0 losartan (Cozaar) 100 MG tablet Take 1 tablet (100 mg) by mouth daily. Do not start before February 15, 2023. 30 tablet 11 niacin 100 MG tablet Every 24 hours. nitroglycerin (Nitrostat) 0.4 MG SL tablet 1 tab(s) sublingually every 5 minutes x 3 doses prn ondansetron (Zofran) 4 MG tablet Every 24 hours. oxyCODONE (Roxicodone) 10 MG immediate release tablet Take 10 mg by mouth in the morning and 10 mg at noon and 10 mg in the evening and 10 mg before bedtime. pantoprazole (ProtoNix) 40 MG EC tablet Take 40 mg by mouth daily. potassium chloride ER (Micro-K) 10 MEQ ER capsule Take 10 mEq by mouth in the morning. sodium chloride 1 g tablet Take 1 tablet (1 g) by mouth in the morning and 1 tablet (1 g) in the evening. Take with meals. 60 tablet 11 tamsulosin (Flomax) 0.4 MG 24 hr capsule Take 0.4 mg by mouth daily. Allergies: Allopurinol, Codeine, and Penicillin g Social History: Social History Socioeconomic History Marital status: Spouse name: Not on file Number of children: Not on file Years of education: Not on file Highest education level: Not on file Occupational History Not on file Tobacco Use Smoking status: Every Day Types: Cigars Last attempt to quit: 1982 Years since quittin.5 Smokeless tobacco: Former Vaping Use Vaping Use: Every day Substances: CBD, canabis Devices: Disposable Substance and Sexual Activity Alcohol use: Yes Alcohol/week: 42.0 standard drinks of alcohol Types: 42 Cans of beer per week Comment: TALL BOY ARE DOUBLE BEERS 42 per week Drug use: Yes Types: Marijuana Comment: daily Sexual activity: Not on file Other Topics Concern Not on file Social History Narrative Not on file Social Determinants of Health Financial Resource Strain: Not on file Food Insecurity: Not on file Transportation Needs: No Transportation Needs (04/03/2023) PRAPARE - Transportation Lack of Transportation (Medical): No Lack of Transportation (Non-Medical): No Physical Activity: Inactive (04/03/2023) Exercise Vital Sign Days of Exercise per Week: 0 days Minutes of Exercise per Session: 0 min Stress: No Stress Concern Present (04/03/2023) [employer] [place] [employer] - Occupational Stress Questionnaire Feeling of Stress : Not at all Social Connections: Not on file Intimate Partner Violence: Not At Risk (02/11/2023) Humiliation, Afraid, Rape, and Kick questionnaire Fear of Current or Ex-Partner: No Emotionally Abused: No Physically Abused: No Sexually Abused: No Housing Stability: Low Risk (04/03/2023) Housing Stability Vital Sign Unable to Pay for Housing in the Last Year: No Number of Places Lived in the Last Year: 1 Unstable Housing in the Last Year: No Family History: Family History Problem Relation Name Age of Onset Depression Mother Depression Maternal Grandmother Review of Systems: Pertinent positives stated above in HPI. All other systems were reviewed and were negative. Physical exam: Constitutional: Vitals: 04/10/23 0700 04/10/23 0758 04/10/23 0828 04/10/23 1120 BP: (!) 142/80 (!) 143/88 BP Location: Left arm Left arm Patient Position: Lying Lying Pulse: 92 91 96 Resp: 18 18 Temp: 36.9 C (98.4 F) 37.2 C (98.9 F) TempSrc: Temporal Temporal SpO2: 97% 98% 97% Weight: 72.6 kg (160 lb) Height: 1.778 m (5' 10") CURRENT TEMPERATURE: Temp: 37.2 C (98.9 F) MAXIMUM TEMPERATURE OVER 24HRS: Temp (24hrs), Av.9 C (98.4 F), Min:36.7 C (98 F), Max:37.2 C (98.9 F) CURRENT PULSE: Heart Rate: 96 CURRENT BLOOD PRESSURE: BP: (!) 143/88 24HR BLOOD PRESSURE RANGE: Systolic (24hrs), Av , Min:97 , Max:151 ; Diastolic (24hrs), Av, Min:66, Max:95 24HR INTAKE/OUTPUT: Intake/Output Summary (Last 24 hours) at 04/10/2023 1152 Last data filed at 04/10/2023 0532 Gross per 24 hour Intake 1300 ml Output 700 ml Net 600 ml Physical Exam: Appearance: NAD, awake, alert, cooperative to exam Eyes: PERRLA, clear sclera ENT: hearing normal, no oral thrush, no erythema or exudate on hard or soft palate, tongue normal Neck: supple, no JVD, no thyromegaly Respiratory: breathing unlabored, lungs CTA B/L anteriorly without w/r/r Cardiovascular: heart RRR without m/g/r, pedal pulses palpable Gastrointestinal: abdomen soft, non-tender, non-distended, normoactive bowel sounds. No masses or hernia. Musculoskeletal: normal muscle strength and tone, no edema of BLE Skin: warm and dry, no rash or wounds Neurologic: symmetric strength and sensation Psychiatric: alert and oriented to person/place/time, judgement and insight normal, memory intact, normal mood and range of affect Data: LIVER PROFILE: Recent Labs 04/09/23203504/10/23 0529 AST 103* 142* ALT 58* 62* BILITOT 0.3 0.3 ALKPHOS 63 54 CBC: Recent Labs 04/09/232035 WBC 3.3* RBC 2.95* HGB 10.0* HCT 28.5* MCV 96.6 RDW 12.8 PLT 106* BMP: Recent Labs 04/09/23203504/10/23 0529 NA 124* 129* K 3.9 4.1 CL 93* 101 CO2 19* 23 BUN 9 6* CREATININE 1.04 0.94 BNP: No results for input(s): BNP in the last 72 hours. ABGs: No results found for: PH, PCO2, PO2, HCO3, O2SAT Nephro Labs: amLODIPine, 2.5 mg, Oral, Daily calcium carbonate, 500 mg, Oral, Daily dicyclomine, 20 mg, Oral, TID AC folic acid, 1 mg, Oral, Daily [START ON 04/11/2023] levothyroxine, 50 mcg, Oral, qAM AC Lidocaine, 2 patch, TransDERmal, Daily losartan, 100 mg, Oral, Daily pantoprazole, 40 mg, Oral, Daily sodium chloride, 1 g, Oral, BID WC tamsulosin, 0.4 mg, Oral, Daily Thiamine Mononitrate, 100 mg, Oral, Daily PRN medications: albuterol, LORazepam OR LORazepam OR LORazepam OR LORazepam OR LORazepam OR LORazepam OR LORazepam OR LORazepam, ondansetron ODT OR ondansetron, oxyCODONE, polyethylene glycol (PEG) 3350 Recent Labs 04/09/232128 COLORU Colorless CLARITYU Clear GLUCOSEU Normal BLOODU Negative UROBILINOGEN Normal Imaging: reviewed Assessment: Acute on chronic hyponatremia is multifactorial 2/2 intravascular volume depletion from vomiting/diarrhea vs ADH stimulus from nausea/pain vs hypervolemic hyponatremia from liver disease +/- beer potomania 2. Alcoholic cirrhosis of the liver 3. Protein calorie malnutrition 4. ETOH abuse 5. Pain disorder 6. Pancytopenia 7. 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 Hx of hepatitis C Plan: -Na 129, improved from 124 -Responded well to the 1L of IVF, hold further IVF for now -Fluid restriction: 1.2L daily or less -Component of ur Na likely falsely low in the setting of advanced liver disease -Encourage 3 meals a day high in protein and ensure supplements ordered, goal of 1 gm/kg/day -Need to control pain/vomiting with prn medications to suppress further ADH stimulation -Na rate of correction not to exceed >8mEq/L/day to prevent neurological sequelae, please notify nephrology if rate of rise is exceeding above parameters -Bladder scan x1 pvr -Check orthos x1 -Needs to quit alcohol use, beer potomania +ve from calorie/carb intake from beer with lack of protein -Complex MDM -We will follow closely with you Thank you for the consult and the opportunity to participate in the care of this patient. Please do not hesitate to call with any questions or concerns. Ophelia Ramos APRN, ANIMAL CONTROL SPECIALIST [facility], [facility] [phone] office Associated attestation - Kennedi Pérez MD - 04/10/2023 6:35 PM EDT Seen and examined. Agree with above A and p. Patient established with me outpatient. H/o DENNYS 12/2022 when we saw him, recovered from DENNYS well. Here with hyponatremia, better with IVF. FR and higher protein intake for now. Will follow. documented in this encounter [facility] 04-10-2023 Consult note Associated Order (s): IP CONSULT TO ADDICTION MEDICINE Images from the original note were not included. Addiction Medicine Patient: Woody Ni Admit Date: 04/09/2023 Primary Care Physician: Jani Quezada History of Present Illness The patient is a 63-year-old male presenting to [facility] for stabilization of alcohol dependence/withdrawal. Patient is known to chemical dependency services, and was recently detoxified at [facility] from April 03 to April 07. He stated that shortly after leaving the hospital he relapsed and has been drinking on virtually daily basis since then. There is a clear history of loss of control, increased tolerance, continued use despite adverse consequences, inability to abstain successfully on his own. Withdrawal positive for anxiety, sweats, tremors but there is no documented of DTs or seizures. History of falling on several occasions while intoxicated. In reference to previous treatment, he has never been involved in any formal outpatient treatment or 12-step involvement. At one point in time he was abstinent from alcohol for 2 years but relapsed 6 years ago. Psychiatric history noncontributory Past medical history fairly extensive pertinent hypertension hypothyroidism GERD self reflux, BPH, neuropathy, hyponatremia. He is admitted under the medical service. Social History Socioeconomic History Marital status: Spouse name: Not on file Number of children: Not on file Years of education: Not on file Highest education level: Not on file Occupational History Not on file Tobacco Use Smoking status: Every Day Types: Cigars Last attempt to quit: 1982 Years since quittin.5 Smokeless tobacco: Former Vaping Use Vaping Use: Every day Substances: CBD, canabis Devices: Disposable Substance and Sexual Activity Alcohol use: Yes Alcohol/week: 42.0 standard drinks of alcohol Types: 42 Cans of beer per week Comment: TALL BOY ARE DOUBLE BEERS 42 per week Drug use: Yes Types: Marijuana Comment: daily Sexual activity: Not on file Other Topics Concern Not on file Social History Narrative Not on file Social Determinants of Health Financial Resource Strain: Not on file Food Insecurity: Not on file Transportation Needs: No Transportation Needs (04/03/2023) PRAPARE - Transportation Lack of Transportation (Medical): No Lack of Transportation (Non-Medical): No Physical Activity: Inactive (04/03/2023) Exercise Vital Sign Days of Exercise per Week: 0 days Minutes of Exercise per Session: 0 min Stress: No Stress Concern Present (04/03/2023) [employer] [place] [employer] - Occupational Stress Questionnaire Feeling of Stress : Not at all Social Connections: Not on file Intimate Partner Violence: Not At Risk (02/11/2023) Humiliation, Afraid, Rape, and Kick questionnaire Fear of Current or Ex-Partner: No Emotionally Abused: No Physically Abused: No Sexually Abused: No Housing Stability: Low Risk (04/03/2023) Housing Stability Vital Sign Unable to Pay for Housing in the Last Year: No Number of Places Lived in the Last Year: 1 Unstable Housing in the Last Year: No 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 Nausea and vomiting 12/22/22-12/26/22 admitted at [facility] Pain management Sleep apnea noncompliant with device Past Surgical History: Procedure Laterality Date BACK SURGERY x 2 CHOLECYSTECTOMY LAMINECTOMY LAP,CHOLECYSTECTOMY (HISTORICAL) N/A 01/05/2023 WISDOM TOOTH EXTRACTION Family History Problem Relation Name Age of Onset Depression Mother Depression Maternal Grandmother Labs Recent Results (from the past 48 hour(s)) ECG 12 lead Collection Time: 04/09/23 8:35 PM Result Value Ref Range Heart Rate 104 bpm QRSD Interval 140 ms QT Interval 368 ms QTC Interval 485 ms P [place] 106 degrees QRS [place] -40 degrees T Wave [place] 7 degrees TX Interval 158 ms Comprehensive metabolic panel Collection Time: 04/09/23 8:36 PM Result Value Ref Range SODIUM 124 (L) 135 - 145 mmol/L POTASSIUM 3.9 3.5 - 5.1 mmol/L CHLORIDE 93 (L) 98 - 107 mmol/L CARBON DIOXIDE 19 (L) 22 - 30 mmol/L ANION GAP 12 3 - 13 mmol/L UREA NITROGEN 9 9 - 20 mg/dL CREATININE 1.04 0.66 - 1.25 mg/dL GLUCOSE 110 (H) 70 - 100 mg/dL CALCIUM 8.7 8.4 - 10.4 mg/dL AST (SGOT) 103 (H) 15 - 46 U/L ALT 58 (H) 0 - 49 U/L ALKALINE PHOSPHATASE 63 38 - 126 U/L ALBUMIN 3.8 3.5 - 5.0 g/dL BILIRUBIN, TOTAL 0.3 0.2 - 1.3 mg/dL TOTAL PROTEIN 6.6 6.3 - 8.2 g/dL eGFR 80.7 >60.0 mL/min/1.73m*2 CBC Collection Time: 04/09/23 8:36 PM Result Value Ref Range Auto WBC 3.3 (L) 3.6 - 10.7 10*3/uL RBC 2.95 (L) 4.40 - 5.90 10*6/uL Hemoglobin 10.0 (L) 13.0 - 18.0 g/dL Hematocrit 28.5 (L) 40.0 - 52.0 % MCV 96.6 80.0 - 98.0 fL MCH 33.9 26.0 - 34.0 pg MCHC 35.1 32.0 - 36.0 % RDW 12.8 11.5 - 14.5 % Platelets 106 (L) 140 - 440 10*3/uL MPV 9.2 7.4 - 12.4 fL Lipase Collection Time: 04/09/23 8:36 PM Result Value Ref Range LIPASE 287 23 - 300 U/L Troponin I Collection Time: 04/09/23 8:36 PM Result Value Ref Range TROPONIN I <0.012 0.000 - 0.034 ng/mL Protime-INR Collection Time: 04/09/23 8:36 PM Result Value Ref Range PROTHROMBIN TIME 11.3 9.0 - 12.0 s INR 1.0 0.9 - 1.1 Ethanol Collection Time: 04/09/23 8:36 PM Result Value Ref Range ETHANOL IN SER/PLAS 0.210 (H) 0.000 - 0.010 g/dL Complete Urinalysis Collection Time: 04/09/23 9:29 PM Result Value Ref Range Color, Urine Colorless Lt. Yellow Clarity, Urine Clear Clear pH, Urine 5.5 5.0 - 8.0 pH Leukocytes, Urine Negative Negative Emma/uL Nitrite, Urine Negative Negative Protein, Urine Negative Negative mg/dL Glucose, Urine Normal Normal (<70) mg/dL Bilirubin, Urine Negative Negative mg/dL Ketones, Urine Negative Negative mg/dL Urobilinogen, Urine Normal Normal (0-1) mg/dL Blood, Urine Negative Negative mg/dL SPECIFIC GRAVITY OF URINE (NUMERIC) 1.002 (L) 1.005 - 1.030 Gastrointestinal PCR Panel Collection Time: 04/09/23 10:21 PM Specimen: Per Rectum; Stool Result Value Ref Range Campylobacter Not Detected Not Detected Plesiomonas shigelloides Not Detected Not Detected Salmonella Not Detected Not Detected Vibrio species Not Detected Not Detected Vibrio cholerae Not Detected Not Detected Yersinia enterocolitica Not Detected Not Detected Enterotoxigenic E coli (ETEC) Not Detected Not Detected Shiga toxin-producing E coli (STEC) Not Detected Not Detected Shigella/Enteroinvasive E coli (EIEC) Not Detected Not Detected Cryptosporidium Not Detected Not Detected Cyclospora cayetanensis Not Detected Not Detected Entamoeba histolytica Not Detected Not Detected Giardia lamblia Not Detected Not Detected Adenovirus F 40/41 Not Detected Not Detected Astrovirus Not Detected Not Detected Norovirus GI/GII Not Detected Not Detected Rotavirus A Not Detected Not Detected Sapovirus Not Detected Not Detected Osmolality Collection Time: 04/10/23 2:15 AM Result Value Ref Range OSMOLALITY, SERUM 286 280 - 300 mOsm/kg Osmolality, urine Collection Time: 04/10/23 2:20 AM Result Value Ref Range OSMOLALITY, URINE 88 (L) 300 - 1,000 mOsm/kg Sodium, urine, random Collection Time: 04/10/23 2:20 AM Result Value Ref Range SODIUM, URINE 8 (L) 30 - 90 mmol/L Comprehensive metabolic panel Collection Time: 04/10/23 5:29 AM Result Value Ref Range SODIUM 129 (L) 135 - 145 mmol/L POTASSIUM 4.1 3.5 - 5.1 mmol/L CHLORIDE 101 98 - 107 mmol/L CARBON DIOXIDE 23 22 - 30 mmol/L ANION GAP 5 3 - 13 mmol/L UREA NITROGEN 6 (L) 9 - 20 mg/dL CREATININE 0.94 0.66 - 1.25 mg/dL GLUCOSE 83 70 - 100 mg/dL CALCIUM 8.2 (L) 8.4 - 10.4 mg/dL AST (SGOT) 142 (H) 15 - 46 U/L ALT 62 (H) 0 - 49 U/L ALKALINE PHOSPHATASE 54 38 - 126 U/L ALBUMIN 3.3 (L) 3.5 - 5.0 g/dL BILIRUBIN, TOTAL 0.3 0.2 - 1.3 mg/dL TOTAL PROTEIN 6.0 (L) 6.3 - 8.2 g/dL eGFR >90.0 >60.0 mL/min/1.73m*2 TSH Collection Time: 04/10/23 5:29 AM Result Value Ref Range THYROID STIMULATING HORMONE 3.864 0.465 - 4.680 uIU/mL Complete Urinalysis Collection Time: 04/10/23 12:39 PM Result Value Ref Range Color, Urine Light Yellow Lt. Yellow Clarity, Urine Clear Clear pH, Urine 5.5 5.0 - 8.0 pH Leukocytes, Urine Negative Negative Emma/uL Nitrite, Urine Negative Negative Protein, Urine Negative Negative mg/dL Glucose, Urine Normal Normal (<70) mg/dL Bilirubin, Urine Negative Negative mg/dL Ketones, Urine Negative Negative mg/dL Urobilinogen, Urine Normal Normal (0-1) mg/dL Blood, Urine Negative Negative mg/dL SPECIFIC GRAVITY OF URINE (NUMERIC) 1.006 1.005 - 1.030 Sodium, urine, random Collection Time: 04/10/23 12:39 PM Result Value Ref Range SODIUM, URINE 41 30 - 90 mmol/L Osmolality, urine Collection Time: 04/10/23 12:39 PM Result Value Ref Range OSMOLALITY, URINE 230 (L) 300 - 1,000 mOsm/kg Medications Home Meds: Prior to Admission medications Medication Sig Start Date End Date Taking? Authorizing Provider acetaminophen (Tylenol) 325 MG tablet every 4 hours as needed. Historical Provider, albuterol (2.5 MG/3ML) 0.083% nebulizer solution Take 2.5 mg by nebulization 2 times daily as needed. PRN Historical Provider, albuterol 108 (90 Base) MCG/ACT inhaler Inhale 1 puff every 4 hours as needed. Historical Provider, alendronate (Fosamax) 70 MG tablet Take 70 mg by mouth once a week. 05/19/17 Historical Provider, amLODIPine (Norvasc) 2.5 MG tablet Take 2.5 mg by mouth in the morning. 05/27/17 Historical Provider, Bioflavonoid Products (Alana-C) tablet Every 24 hours. Historical Provider, calcium carbonate (Tums) 500 MG chewable tablet Chew 1 tablet (500 mg) daily. Do not start before February 15, 2023. 02/15/23 02/15/24 Kacie Benz DO cyanocobalamin (Vitamin B-12) 1000 MCG/ML injection 1 mL intramuscularly once a month Historical Provider, dicyclomine (Bentyl) 20 MG tablet Take 1 tablet (20 mg) by mouth in the morning and 1 tablet (20 mg) at noon and 1 tablet (20 mg) in the evening. Take before meals. 11/07/22 11/07/23 Beryl Holder PA-C fluticasone (Flonase) 50 MCG/ACT nasal spray Administer 1 spray into each nostril daily as needed. 04/27/17 Historical ProviderMD ipratropium (Atrovent) 0.02 % nebulizer solution PRN 05/04/17 Historical ProviderMD ipratropium-albuterol (Duo-Neb) 0.5-2.5 mg/3 mL nebulizer solution every 6 hours. Historical Provider, ketoconazole (NIZOral) 2 % shampoo EVERY THREE DAYS 11/18/19 Historical Provider, levothyroxine (Synthroid, Levoxyl) 50 MCG tablet TAKE 1 TABLET BY MOUTH DAILY 06/06/22 06/06/23 Nicolas Qiu losartan (Cozaar) 100 MG tablet Take 1 tablet (100 mg) by mouth daily. Do not start before February 15, 2023. 02/15/23 02/15/24 Kacie Benz DO niacin 100 MG tablet Every 24 hours. Historical Provider, nitroglycerin (Nitrostat) 0.4 MG SL tablet 1 tab(s) sublingually every 5 minutes x 3 doses prn Historical Provider, ondansetron (Zofran) 4 MG tablet Every 24 hours. Historical Provider, oxyCODONE (Roxicodone) 10 MG immediate release tablet Take 10 mg by mouth in the morning and 10 mg at noon and 10 mg in the evening and 10 mg before bedtime. 05/29/17 Historical ProviderMD pantoprazole (ProtoNix) 40 MG EC tablet Take 40 mg by mouth daily. Historical Provider, potassium chloride ER (Micro-K) 10 MEQ ER capsule Take 10 mEq by mouth in the morning. 03/30/17 Historical ProviderMD sodium chloride 1 g tablet Take 1 tablet (1 g) by mouth in the morning and 1 tablet (1 g) in the evening. Take with meals. 02/14/23 02/14/24 Kacie Benz DO tamsulosin (Flomax) 0.4 MG 24 hr capsule Take 0.4 mg by mouth daily. 01/27/22 Historical ProviderMD Inpatient Scheduled Meds: amLODIPine, 2.5 mg, Oral, Daily calcium carbonate, 500 mg, Oral, Daily dicyclomine, 20 mg, Oral, TID AC folic acid, 1 mg, Oral, Daily [START ON 04/11/2023] levothyroxine, 50 mcg, Oral, qAM AC Lidocaine, 2 patch, TransDERmal, Daily losartan, 100 mg, Oral, Daily pantoprazole, 40 mg, Oral, Daily sodium chloride, 1 g, Oral, BID WC tamsulosin, 0.4 mg, Oral, Daily Thiamine Mononitrate, 100 mg, Oral, Daily Inpatient PRN Meds: PRN medications: albuterol, loperamide, LORazepam OR LORazepam OR LORazepam OR LORazepam OR LORazepam OR LORazepam OR LORazepam OR LORazepam, ondansetron ODT OR ondansetron, oxyCODONE, polyethylene glycol (PEG) 3350 Exam Vitals: 04/10/23 0700 04/10/23 0758 04/10/23 0828 04/10/23 1120 BP: (!) 142/80 (!) 143/88 BP Location: Left arm Left arm Patient Position: Lying Lying Pulse: 92 91 96 Resp: 18 18 Temp: 36.9 C (98.4 F) 37.2 C (98.9 F) TempSrc: Temporal Temporal SpO2: 97% 98% 97% Weight: 160 lb (72.6 kg) Height: 5' 10" (1.778 m) Physical Exam In meeting with the patient, he was resting at bedside. He is slightly disheveled but is not flushed or diaphoretic. Mild to moderate resting tremors noted. Oriented x4, pleasant, cooperative. There are no auditory, tactile or visual disturbances. He is quite remorseful about his relapse and is committed to do what ever is necessary to stabilize his recovery. Assessment & Plan At this point in time we will continue detox regimen, lorazepam on a as needed basis for alcohol withdrawal symptomatology. He had made a commitment to follow-up with [facility] virtual program. Hopefully he will return to this program after he is released from the hospital. We will follow FLAVIO SHERMAN MD Addiction Medicine 04/10/2023 at 1:49 PM -55- minutes were spent reviewing the patient's records, evaluating the patient, entering orders, coordinating care with the treatment team, and creating a progress note. Narrative portions of the note are written utilizing [employer] software. While every effort is made to dictate clearly and proofread, errors in the dictation may still occur. If there are any questions regarding the dictation please do not hesitate to contact the author. [facility] 04-10-2023 Consult note Associated Order (s): IP CONSULT TO PALLIATIVE CARE Images from the original note were not included. Palliative Care Initial Consult Chief Complaint: Woody Ni is a 63 y.o. male with chief complaint of hyponatremia, abdominal pain Palliative Care provider will follow-up on 04/13/23. Assessment/Plan Goals of Care - FULL - pt does not advance care planning documents in [facility] - Kingsley Carl (significant other x 25 years): [phone] - pts goal is to abstain from Etoh so he can continue to be prescribed oxycodone - he is interested in inpatient ETOH detox - pt is not . Has long time partner Kingsley - no biological children - Father is still living --> in his late 80s - consult to assist with HCPOA paperwork Chronic opioid prescription use - follows with [facility], [address] --> [phone] - opiates prescribed since 2016 by above - has been on opiates since 2002 - per pt Pain Management team said they would not prescribe oxycodone while he was using alcohol - agree with low dose oxycodone order in place, 5mg q6hrs prn Hyponatremia - chronic --> 118-128 in January 2023; 126 in May 2023 - 124 on admission, now 129 - on fluid restriction of 1200mL - pt wanting to drink ensure as well --> will ask for dietary input/support ETOH Abuse / dependence - recent detox, however resumed active use after discharged - on CIWA protocol - pt states he is wanting to abstain from alcohol so he is able to be prescribed oxycodone for his chronic pain Diarrhea - infectious work up neg - TSH ordered and pending - opiate withdrawal high on differential - add imodium prn Liver Cirrhosis - s/p liver biopsy 12/2022 - no signs of end stage disease --> no ascites, pt denies esoph varices, no encephalopathy - alb 3.8, INR 1.0 - MELD-Na 16 --> <2% 90 day mortality Chronic pain - back and abdominal - agree with lidoderm patches - limited tylenol, 2 grams daily (okay in setting of cirrhosis) an option as well - abdominal exam benign Palliative Care Encounter - plan as above - will sign off Discharge planning: Ready for discharge from Palliative Care perspective, no follow-up needed Patient meets criteria for general inpatient hospice care including the following: N/A - Palliative Care Patient Referrals to: Social work Discussed patient and the plan of care with the other interdisciplinary team (IDT) members of Palliative Care Team, and with Primary Attending and Patient Subjective: Hospital days prior to consult: 1 Subjective/Events 63 y/o man with h/o alcohol use disorder, liver cirrhosis, HTN, hyponatremia, 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 Pt was discharged from inpatient alcohol detox 2 days prior to presentation. Per documentation chronic opioids were stopped by pain management 10 days ago. Na in ED was 124. Pt takes salt tablets at home. He is a full code. Palliative team is consulted to assist with advanced directives, pain and GOC. Pain Assessment (If Pain Scale >0) Description: aching, stabbing, and throbbing Duration: year(s) Frequency:Daily Location: abdomen and back Alleviating Factors: pain medication Exacerbating Factors: unable to associate with any factor Effect:Change in Function and Interference with Activities Goals of care:Improve or Maintain Function/Quality of Life Advance Directives: Full Code Surrogate: pt wanting to complete HCPOA Prognosis: unknown Spiritual assessment: No spiritual distress identified Bereavement and grief: Grief Issues Not Identified 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 Nausea and vomiting 12/22/22-12/26/22 admitted at [facility] Pain management Sleep apnea noncompliant with device Past Surgical History: Procedure Laterality Date BACK SURGERY x 2 CHOLECYSTECTOMY LAMINECTOMY LAP,CHOLECYSTECTOMY (HISTORICAL) N/A 01/05/2023 WISDOM TOOTH EXTRACTION Family History Problem Relation Name Age of Onset Depression Mother Depression Maternal Grandmother Unable to obtain family history due to N/A- family history available Allergies Allergen Reactions Allopurinol Other Breaks out in blisters Codeine Nausea Only Penicillin G Swelling Review of Systems Constitutional: Negative for fever and unexpected weight change. HENT: Positive for sore throat. Eyes: Negative for visual disturbance. Respiratory: Negative for shortness of breath. Cardiovascular: Negative for chest pain and leg swelling. Gastrointestinal: Positive for abdominal pain, diarrhea, nausea and vomiting. Musculoskeletal: Positive for back pain. Neurological: Negative for seizures, syncope and headaches. Hematological: Does not bruise/bleed easily. Psychiatric/Behavioral: Negative for agitation and confusion. ROS: See palliative care ROS/ESAS below; [place] Symptom Assessment Score [place] Score Pain Score "High" Tiredness Score 5 Nausea Score 0 Depression Score 0 Anxiety Score 0 Drowsiness Score 0 Anorexia Score (0= eating well, 10= not eating) 0 Wellbeing Score (10= worst sense of well-being) 5 Constipation 0 Dyspnea Score (0= no shortness of breath) 0 Assessed by: patient and provider. 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 Constitutional: General: He is not in acute distress. Appearance: He is not diaphoretic. Comments: Sitting up in bed, smiling, engaged HENT: Head: Normocephalic and atraumatic. Nose: Nose normal. No rhinorrhea. Mouth/Throat: Pharynx: Oropharynx is clear. No oropharyngeal exudate. Comments: edentulous Eyes: General: No scleral icterus. Conjunctiva/sclera: Conjunctivae normal. Cardiovascular: Rate and Rhythm: Normal rate. Pulses: Normal pulses. Heart sounds: No murmur heard. Pulmonary: Effort: Pulmonary effort is normal. No respiratory distress. Breath sounds: No wheezing or rhonchi. Abdominal: General: There is no distension. Palpations: Abdomen is soft. Tenderness: There is no abdominal tenderness. There is no guarding. Musculoskeletal: Right lower leg: No edema. Left lower leg: No edema. Skin: General: Skin is warm and dry. Coloration: Skin is not jaundiced. Findings: No bruising. Neurological: Mental Status: He is alert and oriented to person, place, and time. Psychiatric: Mood and Affect: Mood normal. Behavior: Behavior normal. Thought Content: Thought content normal. Judgment: Judgment normal. Current Medications: Inpatient medications reviewed: yes Home medications reviewed: yes OARRS Reviewed: Yes-monthly scripts for oxycodone 10mg, #120, 30days; last filled 03/12/23 24 Hour PRN Meds: oxycodone 5mg x 1 Results/Verification of Data Review Objective data reviewed (be specific which labs, imaging reports with dates reviewed): 04/10/23 MAR/vitals/BMP Data in Support of Terminal Illness: Is patient hospice appropriate? no Transition Note Initiated: no. Signing off . Woody Ni has been seen in consultation by [facility] during their admission to [facility]. They currently have no uncontrolled symptoms and have established goals of care and we have signed off of their case. The patient has established follow-up with chronic pain management. [facility] Work Phone: 04-10-2023 Consult note Associated Order (s): IP CONSULT TO NEPHROLOGY [facility] Consult Note Reason for Consult: hyponatremia Requesting Physician: Daja Johnson MD Chief Complaint: Chief Complaint Patient presents with Abdominal Pain History of Present Ilness: Woody is a 63 y.o. male with PMH per EMR including alcoholism, chronic pain syndrome, cirrhosis, diabetes, hypertension, hyponatremia, prior cholecystectomy, presents concern for abdominal pain, diarrhea. Patient reports he was hospitalized for alcohol detox for the last week. He describes achy pain throughout his abdomen, he denies fever chills, cough, chest pain, shortness of breath, lightheadedness or dizziness, denies hematochezia or melena, dysuria, or other symptoms or concerns. He reports he last drank 2 beers earlier yesterday, otherwise has not drank for the last week. Patient denies recent antibiotic use. Of note, he was seeing pain management and getting opioids outpatient but was stopped 10 days ago by pain management during ETOH use disorder per patient. Nephrology is asked to see the patient for hyponatremia. Patient currently has an Na level of 129, previously 124 and has a chronically low baseline of ~130. He reports over the last 7 days he has had poor p.o. tolerance including nausea vomiting and watery bowel movements, he endorses diffuse abdominal pain that is ongoing and unchanged for the last 10 years (of note: in [facility], he followed with surgery and had cholecystectomy/liver biopsy in december of this year - biopsy consistent with liver cirrhosis). Denies issues with UOP. No recent falls. No use of thiazides. Daily smoker +ve. 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 Nausea and vomiting 12/22/22-12/26/22 admitted at [facility] Pain management Sleep apnea noncompliant with device Past Surgical History: Past Surgical History: Procedure Laterality Date BACK SURGERY x 2 CHOLECYSTECTOMY LAMINECTOMY LAP,CHOLECYSTECTOMY (HISTORICAL) N/A 01/05/2023 WISDOM TOOTH EXTRACTION Home Medications: No current facility-administered medications on file prior to encounter. Current Outpatient Medications on File Prior to Encounter Medication Sig Dispense Refill acetaminophen (Tylenol) 325 MG tablet every 4 hours as needed. albuterol (2.5 MG/3ML) 0.083% nebulizer solution Take 2.5 mg by nebulization 2 times daily as needed. PRN albuterol 108 (90 Base) MCG/ACT inhaler Inhale 1 puff every 4 hours as needed. alendronate (Fosamax) 70 MG tablet Take 70 mg by mouth once a week. amLODIPine (Norvasc) 2.5 MG tablet Take 2.5 mg by mouth in the morning. Bioflavonoid Products (Alana-C) tablet Every 24 hours. calcium carbonate (Tums) 500 MG chewable tablet Chew 1 tablet (500 mg) daily. Do not start before February 15, 2023. 30 tablet 11 cyanocobalamin (Vitamin B-12) 1000 MCG/ML injection 1 mL intramuscularly once a month dicyclomine (Bentyl) 20 MG tablet Take 1 tablet (20 mg) by mouth in the morning and 1 tablet (20 mg) at noon and 1 tablet (20 mg) in the evening. Take before meals. 90 tablet 1 fluticasone (Flonase) 50 MCG/ACT nasal spray Administer 1 spray into each nostril daily as needed. ipratropium (Atrovent) 0.02 % nebulizer solution PRN ipratropium-albuterol (Duo-Neb) 0.5-2.5 mg/3 mL nebulizer solution every 6 hours. ketoconazole (NIZOral) 2 % shampoo EVERY THREE DAYS levothyroxine (Synthroid, Levoxyl) 50 MCG tablet TAKE 1 TABLET BY MOUTH DAILY 30 tablet 0 losartan (Cozaar) 100 MG tablet Take 1 tablet (100 mg) by mouth daily. Do not start before February 15, 2023. 30 tablet 11 niacin 100 MG tablet Every 24 hours. nitroglycerin (Nitrostat) 0.4 MG SL tablet 1 tab(s) sublingually every 5 minutes x 3 doses prn ondansetron (Zofran) 4 MG tablet Every 24 hours. oxyCODONE (Roxicodone) 10 MG immediate release tablet Take 10 mg by mouth in the morning and 10 mg at noon and 10 mg in the evening and 10 mg before bedtime. pantoprazole (ProtoNix) 40 MG EC tablet Take 40 mg by mouth daily. potassium chloride ER (Micro-K) 10 MEQ ER capsule Take 10 mEq by mouth in the morning. sodium chloride 1 g tablet Take 1 tablet (1 g) by mouth in the morning and 1 tablet (1 g) in the evening. Take with meals. 60 tablet 11 tamsulosin (Flomax) 0.4 MG 24 hr capsule Take 0.4 mg by mouth daily. Allergies: Allopurinol, Codeine, and Penicillin g Social History: Social History Socioeconomic History Marital status: Spouse name: Not on file Number of children: Not on file Years of education: Not on file Highest education level: Not on file Occupational History Not on file Tobacco Use Smoking status: Every Day Types: Cigars Last attempt to quit: 1982 Years since quittin.5 Smokeless tobacco: Former Vaping Use Vaping Use: Every day Substances: CBD, canabis Devices: Disposable Substance and Sexual Activity Alcohol use: Yes Alcohol/week: 42.0 standard drinks of alcohol Types: 42 Cans of beer per week Comment: TALL BOY ARE DOUBLE BEERS 42 per week Drug use: Yes Types: Marijuana Comment: daily Sexual activity: Not on file Other Topics Concern Not on file Social History Narrative Not on file Social Determinants of Health Financial Resource Strain: Not on file Food Insecurity: Not on file Transportation Needs: No Transportation Needs (04/03/2023) PRAPARE - Transportation Lack of Transportation (Medical): No Lack of Transportation (Non-Medical): No Physical Activity: Inactive (04/03/2023) Exercise Vital Sign Days of Exercise per Week: 0 days Minutes of Exercise per Session: 0 min Stress: No Stress Concern Present (04/03/2023) [employer] - Occupational Stress Questionnaire Feeling of Stress : Not at all Social Connections: Not on file Intimate Partner Violence: Not At Risk (02/11/2023) Humiliation, Afraid, Rape, and Kick questionnaire Fear of Current or Ex-Partner: No Emotionally Abused: No Physically Abused: No Sexually Abused: No Housing Stability: Low Risk (04/03/2023) Housing Stability Vital Sign Unable to Pay for Housing in the Last Year: No Number of Places Lived in the Last Year: 1 Unstable Housing in the Last Year: No Family History: Family History Problem Relation Name Age of Onset Depression Mother Depression Maternal Grandmother Review of Systems: Pertinent positives stated above in HPI. All other systems were reviewed and were negative. Physical exam: Constitutional: Vitals: 04/10/23 0700 04/10/23 0758 04/10/23 0828 04/10/23 1120 BP: (!) 142/80 (!) 143/88 BP Location: Left arm Left arm Patient Position: Lying Lying Pulse: 92 91 96 Resp: 18 18 Temp: 36.9 C (98.4 F) 37.2 C (98.9 F) TempSrc: Temporal Temporal SpO2: 97% 98% 97% Weight: 72.6 kg (160 lb) Height: 1.778 m (5' 10") CURRENT TEMPERATURE: Temp: 37.2 C (98.9 F) MAXIMUM TEMPERATURE OVER 24HRS: Temp (24hrs), Av.9 C (98.4 F), Min:36.7 C (98 F), Max:37.2 C (98.9 F) CURRENT PULSE: Heart Rate: 96 CURRENT BLOOD PRESSURE: BP: (!) 143/88 24HR BLOOD PRESSURE RANGE: Systolic (24hrs), Av , Min:97 , Max:151 ; Diastolic (24hrs), Av, Min:66, Max:95 24HR INTAKE/OUTPUT: Intake/Output Summary (Last 24 hours) at 04/10/2023 1152 Last data filed at 04/10/2023 0532 Gross per 24 hour Intake 1300 ml Output 700 ml Net 600 ml Physical Exam: Appearance: NAD, awake, alert, cooperative to exam Eyes: PERRLA, clear sclera ENT: hearing normal, no oral thrush, no erythema or exudate on hard or soft palate, tongue normal Neck: supple, no JVD, no thyromegaly Respiratory: breathing unlabored, lungs CTA B/L anteriorly without w/r/r Cardiovascular: heart RRR without m/g/r, pedal pulses palpable Gastrointestinal: abdomen soft, non-tender, non-distended, normoactive bowel sounds. No masses or hernia. Musculoskeletal: normal muscle strength and tone, no edema of BLE Skin: warm and dry, no rash or wounds Neurologic: symmetric strength and sensation Psychiatric: alert and oriented to person/place/time, judgement and insight normal, memory intact, normal mood and range of affect Data: LIVER PROFILE: Recent Labs 04/09/23203504/10/23 0529 AST 103* 142* ALT 58* 62* BILITOT 0.3 0.3 ALKPHOS 63 54 CBC: Recent Labs 04/09/232035 WBC 3.3* RBC 2.95* HGB 10.0* HCT 28.5* MCV 96.6 RDW 12.8 PLT 106* BMP: Recent Labs 04/09/23203504/10/23 0529 NA 124* 129* K 3.9 4.1 CL 93* 101 CO2 19* 23 BUN 9 6* CREATININE 1.04 0.94 BNP: No results for input(s): BNP in the last 72 hours. ABGs: No results found for: PH, PCO2, PO2, HCO3, O2SAT Nephro Labs: amLODIPine, 2.5 mg, Oral, Daily calcium carbonate, 500 mg, Oral, Daily dicyclomine, 20 mg, Oral, TID AC folic acid, 1 mg, Oral, Daily [START ON 04/11/2023] levothyroxine, 50 mcg, Oral, qAM AC Lidocaine, 2 patch, TransDERmal, Daily losartan, 100 mg, Oral, Daily pantoprazole, 40 mg, Oral, Daily sodium chloride, 1 g, Oral, BID WC tamsulosin, 0.4 mg, Oral, Daily Thiamine Mononitrate, 100 mg, Oral, Daily PRN medications: albuterol, LORazepam OR LORazepam OR LORazepam OR LORazepam OR LORazepam OR LORazepam OR LORazepam OR LORazepam, ondansetron ODT OR ondansetron, oxyCODONE, polyethylene glycol (PEG) 3350 Recent Labs 04/09/232128 COLORU Colorless CLARITYU Clear GLUCOSEU Normal BLOODU Negative UROBILINOGEN Normal Imaging: reviewed Assessment: Acute on chronic hyponatremia is multifactorial 2/2 intravascular volume depletion from vomiting/diarrhea vs ADH stimulus from nausea/pain vs hypervolemic hyponatremia from liver disease +/- beer potomania 2. Alcoholic cirrhosis of the liver 3. Protein calorie malnutrition 4. ETOH abuse 5. Pain disorder 6. Pancytopenia 7. 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 Hx of hepatitis C Plan: -Na 129, improved from 124 -Responded well to the 1L of IVF, hold further IVF for now -Fluid restriction: 1.2L daily or less -Component of ur Na likely falsely low in the setting of advanced liver disease -Encourage 3 meals a day high in protein and ensure supplements ordered, goal of 1 gm/kg/day -Need to control pain/vomiting with prn medications to suppress further ADH stimulation -Na rate of correction not to exceed >8mEq/L/day to prevent neurological sequelae, please notify nephrology if rate of rise is exceeding above parameters -Bladder scan x1 pvr -Check orthos x1 -Needs to quit alcohol use, beer potomania +ve from calorie/carb intake from beer with lack of protein -Complex MDM -We will follow closely with you Thank you for the consult and the opportunity to participate in the care of this patient. Please do not hesitate to call with any questions or concerns. Ophelia Ramos APRN, ANIMAL CONTROL SPECIALIST [facility], [facility] [phone] office Associated attestation - Kennedi Pérez MD - 04/10/2023 6:35 PM EDT Seen and examined. Agree with above A and p. Patient established with me outpatient. H/o DENNYS 12/2022 when we saw him, recovered from DENNYS well. Here with hyponatremia, better with IVF. FR and higher protein intake for now. Will follow. [facility] [employer] 04-10-2023 Note Formatting of this n ote might be different from the original. Care Managment Initial Assessment Date: 04/10/2023 Patient Name: Woody Ni : 1960 Patient Information Source of Information: Patient Cognition/Language: WFL - Within Functional Limits Permission given to speak with patient underwriting account representative/caregiver as indicated: Yes (Kingsley Carl (Spouse) [phone]) Confirmation of Payer with patient/family: Yes Payer Name: Medicare A&B,, 2 Medicaid : Yes (does not follow with VA) Confirmation of Primary Care Physician: Confirmed PCP Name: Jani Quezada Seen in last 2 years?: Yes Primary Caregiver: Self If assistance needed, confirmed caregiver ready, willing and able to care for patient at discharge: Confirmed with: Living Arrangements Current Residence: House Number of Floors 2 Number of Entry Steps: 1 Bed/Bath Levels: Both first floor Facility: Facility Name: Plan to Return: Lives with: Spouse/significant other Support Systems: Spouse/significant other Activities of Daily Living Ambulation: Assistance (walker and/or cane) Bathing/Dressing: Independent Elimination/Continence/Toileting: Independent Feeding: Independent Who Assists with Activities of Daily Living: Instrumental Activities of Daily Living Prescription Coverage: Yes Pharmacy Used: [facility] in [place] Medication Management: Independent Transportation/Shopping: Assistance Provider Transportation/Shopping Assistance Provider Name: Transportation Mode: Car Needs Assistance with Transportation at Discharge: No ( will transport) Meal Preparation: Assistance Provider Meal Prep Assistance Provider Name: Laundry/Cleaning: Assistance Provider Laundry/Cleaning Assistance Provider Name: Finances/Bill Paying: Assistance Provider Finances/Bill Payer Assistance Provider Name: Communication: Independent Types of Care Services/Equipment Utilized Care Services: Dialysis Type: NA Durable Medical Equipment: Cane, Walker, Wheelchair (standard or power) Patient's Goal/Discharge Plan Patient expects to be discharged to: home Discharge Planning Actions: Continue to follow Patient's Choice Rights and [employer] and Collaborative Relationships Disclosed as Indicated for Post-Acute Care: Interdisciplinary Team Engagement: Social Work Referral for: Additional Information: Spoke with patient at bedside. Introduced self and role. Discharge planning needs discussed. Patient denies any needs at this time. Patient in hospital due to abdominal pain and diarrhea. Patient states he hasn't been able to eat in 7 days. Patient was inpatient for several days for detox, was discharged 2 days ago. Sodium on admission was 124, now it's 129. TCC will continue to follow. Monica Scott RN [facility] 04-10-2023 Note Formatting of this n ote might be different from the original. Care Managment Initial Assessment Date: 04/10/2023 Patient Name: Woody Ni : 1960 Patient Information Source of Information: Patient Cognition/Language: WFL - Within Functional Limits Permission given to speak with patient underwriting account representative/caregiver as indicated: Yes (Kingsley Carl (Spouse) [phone]) Confirmation of Payer with patient/family: Yes Payer Name: Medicare A&B,, 2 Medicaid [place]: Yes (does not follow with [facility]) Confirmation of Primary Care Physician: Confirmed PCP Name: Jani Quezada Seen in last 2 years?: Yes Primary Caregiver: Self If assistance needed, confirmed caregiver ready, willing and able to care for patient at discharge: Confirmed with: Living Arrangements Current Residence: House Number of Floors 2 Number of Entry Steps: 1 Bed/Bath Levels: Both first floor Facility: Facility Name: Plan to Return: Lives with: Spouse/significant other Support Systems: Spouse/significant other Activities of Daily Living Ambulation: Assistance (walker and/or cane) Bathing/Dressing: Independent Elimination/Continence/Toileting: Independent Feeding: Independent Who Assists with Activities of Daily Living: Instrumental Activities of Daily Living Prescription Coverage: Yes Pharmacy Used: [facility] in [place] Medication Management: Independent Transportation/Shopping: Assistance Provider Transportation/Shopping Assistance Provider Name: Transportation Mode: Car Needs Assistance with Transportation at Discharge: No ( will transport) Meal Preparation: Assistance Provider Meal Prep Assistance Provider Name: Laundry/Cleaning: Assistance Provider Laundry/Cleaning Assistance Provider Name: Finances/Bill Paying: Assistance Provider Finances/Bill Payer Assistance Provider Name: Communication: Independent Types of Care Services/Equipment Utilized Care Services: Dialysis Type: NA Durable Medical Equipment: Cane, Walker, Wheelchair (standard or power) Patient's Goal/Discharge Plan Patient expects to be discharged to: home Discharge Planning Actions: Continue to follow Patient's Choice Rights and [employer] and Collaborative Relationships Disclosed as Indicated for Post-Acute Care: Interdisciplinary Team Engagement: Social Work Referral for: Additional Information: Spoke with patient at bedside. Introduced self and role. Discharge planning needs discussed. Patient denies any needs at this time. Patient in hospital due to abdominal pain and diarrhea. Patient states he hasn't been able to eat in 7 days. Patient was inpatient for several days for detox, was discharged 2 days ago. Sodium on admission was 124, now it's 129. TCC will continue to follow. Monica Scott RN [facility] 04-10-2023 History and physical note Attending History and Physical Admit Date: 04/09/2023 PCP: Jani Quezada CHIEF COMPLAINT: Abdominal pain/diarrhea History Obtained From: patient/ER HISTORY OF PRESENT ILLNESS: Woody is a 63 y.o. male with PMH per EMR including alcoholism, chronic pain syndrome, cirrhosis, diabetes, hypertension, hyponatremia, prior cholecystectomy, presents concern for abdominal pain, diarrhea. Patient reports he was hospitalized for alcohol detox for the last week, discharged 2 days ago, he reports over the last 7 days he has had poor p.o. tolerance including nausea vomiting and watery bowel movements, he endorses to ER diffuse abdominal pain that is ongoing and unchanged for the last 10 years (of note: in [facility], he followed with surgery and had cholecystectomy/liver biopsy in december of this year - biopsy consistent with liver cirrhosis). He describes achy pain throughout his abdomen, he denies fever chills, cough, chest pain, shortness of breath, lightheadedness or dizziness, denies hematochezia or melena, dysuria, or other symptoms or concerns, he reports he last drank 2 beers earlier today, otherwise has not drank for the last week. Patient denies recent antibiotic use. Of note, he was seeing pain management and getting opioids outpatient but was stopped 10 days ago by pain management during ETOH use disorder per patient. 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 Nausea and vomiting 12/22/22-12/26/22 admitted at [facility] Pain management Sleep apnea noncompliant with device Past Surgical History: Past Surgical History: Procedure Laterality Date BACK SURGERY x 2 CHOLECYSTECTOMY LAMINECTOMY LAP,CHOLECYSTECTOMY (HISTORICAL) N/A 01/05/2023 WISDOM TOOTH EXTRACTION Family History: Family History Problem Relation Name Age of Onset Depression Mother Depression Maternal Grandmother Medications Prior to Admission: No current facility-administered medications on file prior to encounter. Current Outpatient Medications on File Prior to Encounter Medication Sig Dispense Refill acetaminophen (Tylenol) 325 MG tablet every 4 hours as needed. albuterol (2.5 MG/3ML) 0.083% nebulizer solution Take 2.5 mg by nebulization 2 times daily as needed. PRN albuterol 108 (90 Base) MCG/ACT inhaler Inhale 1 puff every 4 hours as needed. alendronate (Fosamax) 70 MG tablet Take 70 mg by mouth once a week. amLODIPine (Norvasc) 2.5 MG tablet Take 2.5 mg by mouth in the morning. Bioflavonoid Products (Alana-C) tablet Every 24 hours. calcium carbonate (Tums) 500 MG chewable tablet Chew 1 tablet (500 mg) daily. Do not start before February 15, 2023. 30 tablet 11 cyanocobalamin (Vitamin B-12) 1000 MCG/ML injection 1 mL intramuscularly once a month dicyclomine (Bentyl) 20 MG tablet Take 1 tablet (20 mg) by mouth in the morning and 1 tablet (20 mg) at noon and 1 tablet (20 mg) in the evening. Take before meals. 90 tablet 1 fluticasone (Flonase) 50 MCG/ACT nasal spray Administer 1 spray into each nostril daily as needed. ipratropium (Atrovent) 0.02 % nebulizer solution PRN ipratropium-albuterol (Duo-Neb) 0.5-2.5 mg/3 mL nebulizer solution every 6 hours. ketoconazole (NIZOral) 2 % shampoo EVERY THREE DAYS levothyroxine (Synthroid, Levoxyl) 50 MCG tablet TAKE 1 TABLET BY MOUTH DAILY 30 tablet 0 losartan (Cozaar) 100 MG tablet Take 1 tablet (100 mg) by mouth daily. Do not start before February 15, 2023. 30 tablet 11 niacin 100 MG tablet Every 24 hours. nitroglycerin (Nitrostat) 0.4 MG SL tablet 1 tab(s) sublingually every 5 minutes x 3 doses prn ondansetron (Zofran) 4 MG tablet Every 24 hours. oxyCODONE (Roxicodone) 10 MG immediate release tablet Take 10 mg by mouth in the morning and 10 mg at noon and 10 mg in the evening and 10 mg before bedtime. pantoprazole (ProtoNix) 40 MG EC tablet Take 40 mg by mouth daily. potassium chloride ER (Micro-K) 10 MEQ ER capsule Take 10 mEq by mouth in the morning. sodium chloride 1 g tablet Take 1 tablet (1 g) by mouth in the morning and 1 tablet (1 g) in the evening. Take with meals. 60 tablet 11 tamsulosin (Flomax) 0.4 MG 24 hr capsule Take 0.4 mg by mouth daily. Allergies: Allopurinol, Codeine, and Penicillin g Social History: Social History Socioeconomic History Marital status: Spouse name: Not on file Number of children: Not on file Years of education: Not on file Highest education level: Not on file Occupational History Not on file Tobacco Use Smoking status: Every Day Types: Cigars Last attempt to quit: 1982 Years since quittin.5 Smokeless tobacco: Former Vaping Use Vaping Use: Every day Substances: CBD, canabis Devices: Disposable Substance and Sexual Activity Alcohol use: Yes Alcohol/week: 42.0 standard drinks of alcohol Types: 42 Cans of beer per week Comment: TALL BOY ARE DOUBLE BEERS 42 per week Drug use: Yes Types: Marijuana Comment: daily Sexual activity: Not on file Other Topics Concern Not on file Social History Narrative Not on file Social Determinants of Health Financial Resource Strain: Not on file Food Insecurity: Not on file Transportation Needs: No Transportation Needs (04/03/2023) PRAPARE - Transportation Lack of Transportation (Medical): No Lack of Transportation (Non-Medical): No Physical Activity: Inactive (04/03/2023) Exercise Vital Sign Days of Exercise per Week: 0 days Minutes of Exercise per Session: 0 min Stress: No Stress Concern Present (04/03/2023) [employer] - Occupational Stress Questionnaire Feeling of Stress : Not at all Social Connections: Not on file Intimate Partner Violence: Not At Risk (02/11/2023) Humiliation, Afraid, Rape, and Kick questionnaire Fear of Current or Ex-Partner: No Emotionally Abused: No Physically Abused: No Sexually Abused: No Housing Stability: Low Risk (04/03/2023) Housing Stability Vital Sign Unable to Pay for Housing in the Last Year: No Number of Places Lived in the Last Year: 1 Unstable Housing in the Last Year: No REVIEW OF SYSTEMS: Other than patient's chronic conditions and those complaints in the history above, the rest of the 10 systems review were done and were negative. Vitals: BP (!) 142/80 (BP Location: Left arm, Patient Position: Lying) Pulse 91 Temp 36.9 C (98.4 F) (Temporal) Resp 18 Ht 5' 10" (1.778 m) Wt 160 lb (72.6 kg) SpO2 98% BMI 22.96 kg/m BMI Classification: Normal Weight (BMI 18.5-24.9) Pulse Ox: SpO2 Av.1 % Min: 92 % Max: 100 % Supplemental O2: PHYSICAL EXAM: General appearance: No apparent distress, appears stated age and cooperative with exam. HEENT: Eyes: No scleral icterus Oral: Tongue is semi-moist Cardiovascular: S1/S2 heard, RRR Respiratory: Clear to auscultation bilaterally Abdomen: Soft, some abdominal pain with palp, non-distended bowel sounds positive Musculoskeletal: No obvious deformities seen Skin: No visible rashes or lesions. DATA: CBC: Recent Labs 04/09/232035 WBC 3.3* RBC 2.95* HGB 10.0* HCT 28.5* MCV 96.6 RDW 12.8 PLT 106* BMP: Recent Labs 04/09/23203504/10/23 0529 NA 124* 129* K 3.9 4.1 CL 93* 101 CO2 19* 23 BUN 9 6* CREATININE 1.04 0.94 GLUCOSE 110* 83 CALCIUM 8.7 8.2* ANIONGAP 12 5 LIVER PROFILE: Recent Labs 04/09/23203504/10/23 0529 AST 103* 142* ALT 58* 62* BILITOT 0.3 0.3 ALKPHOS 63 54 PROT 6.6 6.0* PT/INR: Recent Labs 04/09/232035 PROTIME 11.3 INR 1.0 CARDIAC ENZYMES: Recent Labs 04/09/232035 TROPONINI <0.012 Procalcitonin: No results found for: PROCAL Urine Culture: Results for orders placed or performed during the hospital encounter of 12/22/22 Urine culture Specimen: Urine, Clean Catch Result Value Ref Range Urine Culture No growth (<1,000 CFU/mL) COVID-19 PCR: No results for input(s): COVID19 in the last 72 hours. I reviewed: [x] laboratory results [x] radiographic results At the time of today's encounter. Pt was advised of the results. IMPRESSION: # Hyponatremia - sodium was 124 in ER. Sodium better now at 129. Likely related to ETOH use and poor solute intake/dehydration. Of note, he is on salt tablet outpatient and states he has been taking it. Improved now with NS IVF. Resumed home salt tablets. Off IVF now. Monitor for ongoing improvement. Consult nephrology to manage. # Mild renal insufficiency on admission due to dehydration - resolved with IVF # Elevated LFTs likely related to Alcoholic hepatitis in the setting of alcoholic cirrhosis # Alcoholic cirrhosis - diagnosed by liver biopsy outpatient. # ETOH use disorder with acute intoxication on admission - was just detoxed a week ago but went home and continued drinking beer. Start thiamine/folate and PRN ativan per [facility] protocol. Consult to addiction med. # Chronic opioid use with acute withdrawal - was seeing pain management and getting opioids outpatient but was stopped 10 days ago by pain management during ETOH use disorder per patient. Addiction med to see. # Acute diarrhea - GI panel was negative. Check TSH. Suspect withdrawing from opioids. Says pain management stopped his pain meds 10 days ago due to his ETOH use. # Pancytopenia - likely related to ETOH use, bone marrow suppression from ETOH/low platelets from cirrhosis with hypersplenia. # Chronic pain (back and abd) - hx of seeing pain management outpatient. Was on chronic opioid but was stopped 10 days ago due to his ETOH use per patient. Will use roxicodone PRN while here but explained that cannot prescribe him any on discharge. Also would like input from addiction med as well as if they plan to detox and need to stop the roxicodone, then will stop. Any input from palliative care would also be appreciated. Added lidocaine patch. # Hx of Hep C # Chronic hypothyroidism - resumed home synthroid. Check TSH in light of diarrhea. # Reported hx of diabetes in records but NOT a diabetic. NOT on any home diabetic meds and last HgbA1C on 04/02 was stone cold normal at 4.7 # Chronic HTN - resumed home bp meds # Hx of anxiety/depression # SHAYLA - noncompliant with PAP # GERD PLAN: consult palliative care for symptoms management of chronic back pain/cirrhosis. Added lidocaine patch and will do roxicodone PRN while here until input from addiction med, Heplock IVF. Regular diet, Start thiamine/folate and PRN ativan per [facility] protocol. Consult to addiction med. Check daily labs, monitor for improvement in diarrhea, consider checking for c diff if no improvement, check TSH, resume home meds, lovenox for dvt proph, please see the rest of the orders for plan of care. -PT/OT eval/increase activity -am labs, replace lytes prn -vitals per routine -home meds as ordered -DVT prophylaxis: [] Lovenox [] Heparin [] SCDs [x] Encourage ambulation [] Already on Anticoagulation -see below for additional orders, further recommendations to follow Orders Placed This Encounter Procedures Gastrointestinal PCR Panel Comprehensive metabolic panel CBC Lipase Complete Urinalysis Troponin I Protime-INR Ethanol Osmolality, urine Osmolality Sodium, urine, random Comprehensive Metabolic Panel with Mg Reflex Comprehensive metabolic panel Telemetry monitoring for Other Indication; hyponatremia ECG 12 lead Admit to inpatient Code status: Prior Please forward a copy of this H&P to the patient's PCP. Thank you. Electronically signed by @[email or web address]@ on @TDNR@ at @NOWNR@ [facility] 04-10-2023 History and physical note Attending History and Physical Admit Date: 04/09/2023 PCP: Jani Quezada CHIEF COMPLAINT: Abdominal pain/diarrhea History Obtained From: patient/ER HISTORY OF PRESENT ILLNESS: Woody is a 63 y.o. male with PMH per EMR including alcoholism, chronic pain syndrome, cirrhosis, diabetes, hypertension, hyponatremia, prior cholecystectomy, presents concern for abdominal pain, diarrhea. Patient reports he was hospitalized for alcohol detox for the last week, discharged 2 days ago, he reports over the last 7 days he has had poor p.o. tolerance including nausea vomiting and watery bowel movements, he endorses to ER diffuse abdominal pain that is ongoing and unchanged for the last 10 years (of note: in [facility], he followed with surgery and had cholecystectomy/liver biopsy in december of this year - biopsy consistent with liver cirrhosis). He describes achy pain throughout his abdomen, he denies fever chills, cough, chest pain, shortness of breath, lightheadedness or dizziness, denies hematochezia or melena, dysuria, or other symptoms or concerns, he reports he last drank 2 beers earlier today, otherwise has not drank for the last week. Patient denies recent antibiotic use. Of note, he was seeing pain management and getting opioids outpatient but was stopped 10 days ago by pain management during ETOH use disorder per patient. 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 Nausea and vomiting 12/22/22-12/26/22 admitted at [facility] Pain management Sleep apnea noncompliant with device Past Surgical History: Past Surgical History: Procedure Laterality Date BACK SURGERY x 2 CHOLECYSTECTOMY LAMINECTOMY LAP,CHOLECYSTECTOMY (HISTORICAL) N/A 01/05/2023 WISDOM TOOTH EXTRACTION Family History: Family History Problem Relation Name Age of Onset Depression Mother Depression Maternal Grandmother Medications Prior to Admission: No current facility-administered medications on file prior to encounter. Current Outpatient Medications on File Prior to Encounter Medication Sig Dispense Refill acetaminophen (Tylenol) 325 MG tablet every 4 hours as needed. albuterol (2.5 MG/3ML) 0.083% nebulizer solution Take 2.5 mg by nebulization 2 times daily as needed. PRN albuterol 108 (90 Base) MCG/ACT inhaler Inhale 1 puff every 4 hours as needed. alendronate (Fosamax) 70 MG tablet Take 70 mg by mouth once a week. amLODIPine (Norvasc) 2.5 MG tablet Take 2.5 mg by mouth in the morning. Bioflavonoid Products (Alana-C) tablet Every 24 hours. calcium carbonate (Tums) 500 MG chewable tablet Chew 1 tablet (500 mg) daily. Do not start before February 15, 2023. 30 tablet 11 cyanocobalamin (Vitamin B-12) 1000 MCG/ML injection 1 mL intramuscularly once a month dicyclomine (Bentyl) 20 MG tablet Take 1 tablet (20 mg) by mouth in the morning and 1 tablet (20 mg) at noon and 1 tablet (20 mg) in the evening. Take before meals. 90 tablet 1 fluticasone (Flonase) 50 MCG/ACT nasal spray Administer 1 spray into each nostril daily as needed. ipratropium (Atrovent) 0.02 % nebulizer solution PRN ipratropium-albuterol (Duo-Neb) 0.5-2.5 mg/3 mL nebulizer solution every 6 hours. ketoconazole (NIZOral) 2 % shampoo EVERY THREE DAYS levothyroxine (Synthroid, Levoxyl) 50 MCG tablet TAKE 1 TABLET BY MOUTH DAILY 30 tablet 0 losartan (Cozaar) 100 MG tablet Take 1 tablet (100 mg) by mouth daily. Do not start before February 15, 2023. 30 tablet 11 niacin 100 MG tablet Every 24 hours. nitroglycerin (Nitrostat) 0.4 MG SL tablet 1 tab(s) sublingually every 5 minutes x 3 doses prn ondansetron (Zofran) 4 MG tablet Every 24 hours. oxyCODONE (Roxicodone) 10 MG immediate release tablet Take 10 mg by mouth in the morning and 10 mg at noon and 10 mg in the evening and 10 mg before bedtime. pantoprazole (ProtoNix) 40 MG EC tablet Take 40 mg by mouth daily. potassium chloride ER (Micro-K) 10 MEQ ER capsule Take 10 mEq by mouth in the morning. sodium chloride 1 g tablet Take 1 tablet (1 g) by mouth in the morning and 1 tablet (1 g) in the evening. Take with meals. 60 tablet 11 tamsulosin (Flomax) 0.4 MG 24 hr capsule Take 0.4 mg by mouth daily. Allergies: Allopurinol, Codeine, and Penicillin g Social History: Social History Socioeconomic History Marital status: Spouse name: Not on file Number of children: Not on file Years of education: Not on file Highest education level: Not on file Occupational History Not on file Tobacco Use Smoking status: Every Day Types: Cigars Last attempt to quit: 1982 Years since quittin.5 Smokeless tobacco: Former Vaping Use Vaping Use: Every day Substances: CBD, canabis Devices: Disposable Substance and Sexual Activity Alcohol use: Yes Alcohol/week: 42.0 standard drinks of alcohol Types: 42 Cans of beer per week Comment: TALL BOY ARE DOUBLE BEERS 42 per week Drug use: Yes Types: Marijuana Comment: daily Sexual activity: Not on file Other Topics Concern Not on file Social History Narrative Not on file Social Determinants of Health Financial Resource Strain: Not on file Food Insecurity: Not on file Transportation Needs: No Transportation Needs (04/03/2023) PRAPARE - Transportation Lack of Transportation (Medical): No Lack of Transportation (Non-Medical): No Physical Activity: Inactive (04/03/2023) Exercise Vital Sign Days of Exercise per Week: 0 days Minutes of Exercise per Session: 0 min Stress: No Stress Concern Present (04/03/2023) [facility] [place] [facility] [employer] [facility] - Occupational Stress Questionnaire Feeling of Stress : Not at all Social Connections: Not on file Intimate Partner Violence: Not At Risk (02/11/2023) Humiliation, Afraid, Rape, and Kick questionnaire Fear of Current or Ex-Partner: No Emotionally Abused: No Physically Abused: No Sexually Abused: No Housing Stability: Low Risk (04/03/2023) Housing Stability Vital Sign Unable to Pay for Housing in the Last Year: No Number of Places Lived in the Last Year: 1 Unstable Housing in the Last Year: No REVIEW OF SYSTEMS: Other than patient's chronic conditions and those complaints in the history above, the rest of the 10 systems review were done and were negative. Vitals: BP (!) 142/80 (BP Location: Left arm, Patient Position: Lying) Pulse 91 Temp 36.9 C (98.4 F) (Temporal) Resp 18 Ht 5' 10" (1.778 m) Wt 160 lb (72.6 kg) SpO2 98% BMI 22.96 kg/m BMI Classification: Normal Weight (BMI 18.5-24.9) Pulse Ox: SpO2 Av.1 % Min: 92 % Max: 100 % Supplemental O2: PHYSICAL EXAM: General appearance: No apparent distress, appears stated age and cooperative with exam. HEENT: Eyes: No scleral icterus Oral: Tongue is semi-moist Cardiovascular: S1/S2 heard, RRR Respiratory: Clear to auscultation bilaterally Abdomen: Soft, some abdominal pain with palp, non-distended bowel sounds positive Musculoskeletal: No obvious deformities seen Skin: No visible rashes or lesions. DATA: CBC: Recent Labs 04/09/232035 WBC 3.3* RBC 2.95* HGB 10.0* HCT 28.5* MCV 96.6 RDW 12.8 PLT 106* BMP: Recent Labs 04/09/23203504/10/23 0529 NA 124* 129* K 3.9 4.1 CL 93* 101 CO2 19* 23 BUN 9 6* CREATININE 1.04 0.94 GLUCOSE 110* 83 CALCIUM 8.7 8.2* ANIONGAP 12 5 LIVER PROFILE: Recent Labs 04/09/23203504/10/23 0529 AST 103* 142* ALT 58* 62* BILITOT 0.3 0.3 ALKPHOS 63 54 PROT 6.6 6.0* PT/INR: Recent Labs 04/09/232035 PROTIME 11.3 INR 1.0 CARDIAC ENZYMES: Recent Labs 04/09/232035 TROPONINI <0.012 Procalcitonin: No results found for: PROCAL Urine Culture: Results for orders placed or performed during the hospital encounter of 12/22/22 Urine culture Specimen: Urine, Clean Catch Result Value Ref Range Urine Culture No growth (<1,000 CFU/mL) COVID-19 PCR: No results for input(s): COVID19 in the last 72 hours. I reviewed: [x] laboratory results [x] radiographic results At the time of today's encounter. Pt was advised of the results. IMPRESSION: # Hyponatremia - sodium was 124 in ER. Sodium better now at 129. Likely related to ETOH use and poor solute intake/dehydration. Of note, he is on salt tablet outpatient and states he has been taking it. Improved now with NS IVF. Resumed home salt tablets. Off IVF now. Monitor for ongoing improvement. Consult nephrology to manage. # Mild renal insufficiency on admission due to dehydration - resolved with IVF # Elevated LFTs likely related to Alcoholic hepatitis in the setting of alcoholic cirrhosis # Alcoholic cirrhosis - diagnosed by liver biopsy outpatient. # ETOH use disorder with acute intoxication on admission - was just detoxed a week ago but went home and continued drinking beer. Start thiamine/folate and PRN ativan per [facility] protocol. Consult to addiction med. # Chronic opioid use with acute withdrawal - was seeing pain management and getting opioids outpatient but was stopped 10 days ago by pain management during ETOH use disorder per patient. Addiction med to see. # Acute diarrhea - GI panel was negative. Check TSH. Suspect withdrawing from opioids. Says pain management stopped his pain meds 10 days ago due to his ETOH use. # Pancytopenia - likely related to ETOH use, bone marrow suppression from ETOH/low platelets from cirrhosis with hypersplenia. # Chronic pain (back and abd) - hx of seeing pain management outpatient. Was on chronic opioid but was stopped 10 days ago due to his ETOH use per patient. Will use roxicodone PRN while here but explained that cannot prescribe him any on discharge. Also would like input from addiction med as well as if they plan to detox and need to stop the roxicodone, then will stop. Any input from palliative care would also be appreciated. Added lidocaine patch. # Hx of Hep C # Chronic hypothyroidism - resumed home synthroid. Check TSH in light of diarrhea. # Reported hx of diabetes in records but NOT a diabetic. NOT on any home diabetic meds and last HgbA1C on 6/15 was stone cold normal at 4.7 # Chronic HTN - resumed home bp meds # Hx of anxiety/depression # SHAYLA - noncompliant with PAP # GERD PLAN: consult palliative care for symptoms management of chronic back pain/cirrhosis. Added lidocaine patch and will do roxicodone PRN while here until input from addiction med, Heplock IVF. Regular diet, Start thiamine/folate and PRN ativan per [facility] protocol. Consult to addiction med. Check daily labs, monitor for improvement in diarrhea, consider checking for c diff if no improvement, check TSH, resume home meds, lovenox for dvt proph, please see the rest of the orders for plan of care. -PT/OT eval/increase activity -am labs, replace lytes prn -vitals per routine -home meds as ordered -DVT prophylaxis: [] Lovenox [] Heparin [] SCDs [x] Encourage ambulation [] Already on Anticoagulation -see below for additional orders, further recommendations to follow Orders Placed This Encounter Procedures Gastrointestinal PCR Panel Comprehensive metabolic panel CBC Lipase Complete Urinalysis Troponin I Protime-INR Ethanol Osmolality, urine Osmolality Sodium, urine, random Comprehensive Metabolic Panel with Mg Reflex Comprehensive metabolic panel Telemetry monitoring for Other Indication; hyponatremia ECG 12 lead Admit to inpatient Code status: Prior Please forward a copy of this H&P to the patient's PCP. Thank you. Electronically signed by @[email or web address]@ on @[email or web address]@ at @NOWNR@ documented in this encounter [facility] 04-10-2023 Emergency department Note Report to [facility] staff. Jere Dooley RN 04/10/23701 [facility] 04-10-2023 Emergency department Note Report to [facility] staff. Jere Dooley RN 04/10/23701 Jere Dooley RN 04/10/23 0122 Jere Dooley RN 04/10/23 0134 [facility] called for transport to [facility]. ETA of 3 hours. Jere Dooley RN 04/10/23 0044 Pt ambulatory to and from restroom independently. Pt had BM loose stool; specimen collected and sent to lab. Pt again refers to this RN as "babydoll" then states the police guard is "going to come in here and beat me up" for saying that. Debora Watts RN 04/09/232221 This RN to room to start IV on pt. Pt immediately requesting "phenergan shot." Pt was informed that this RN was in room to start IV and then pt would be medicated by Norma BRODERICK after, and that this RN did not know which specific meds were ordered. Pt stating "OK baby doll" to this RN. Since arrival at [facility] pt has continually been calling staff "baby doll" and other endearing terms and acting inappropriately toward staff. Pt does appear intoxicated as well. fire officer was notified and did speak with pt about addressing staff appropriately. This RN and Norma BRODERICK to bedside together for safety. When staff entered room pt had his blanket over his head and stating that he did not mean to offend staff with his "pet name" use. During EKG, IV insertion and med administration, however, the pt continued to refer to both RN's multiple time as baby doll, dear, etc., then would attempt to correct himself and say "nurses" instead. Then pt would again say "baby doll" and other inappropriate terms. Pt was continually reminded to refrain from this but the behavior persisted. Debora Watts RN 04/09/232052 Debora Watts RN 04/09/232056 Emergency Department Encounter [facility] ED Patient: Woody Ni : 1960 Date of Evaluation: 04/09/2023 ED Provider: Richie Acosta MD Note: I wore an N95 mask and gloves during this encounter. CHIEF COMPLAINT: Abdominal pain, diarrhea HPI: Woody Ni is a 63 y.o. male with PMH per EMR including alcoholism, chronic pain syndrome, cirrhosis, diabetes, hypertension, hyponatremia, prior cholecystectomy, presents concern for abdominal pain, diarrhea. Patient reports he was hospitalized for alcohol detox for the last week, discharged 2 days ago, he reports over the last 7 days he has had poor p.o. tolerance including nausea vomiting and watery bowel movements, he endorses diffuse abdominal pain that is ongoing and unchanged for the last 10 years, describes achy pain throughout his abdomen, he denies fever chills, cough, chest pain, shortness of breath, lightheadedness or dizziness, denies hematochezia or melena, dysuria, or other symptoms or concerns, he reports he last drank 2 beers earlier today, otherwise has not drank for the last week. Patient denies recent antibiotic use. REVIEW OF SYSTEMS: Pertinent positives and negatives as per HPI. HISTORIES: PAST MEDICAL HISTORY: as per HPI SOCIAL HISTORY: Per EMR history of tobacco use, alcohol use, erroneous MEDICATIONS: Nursing notes and EMR reviewed ALLERGIES: Nursing notes and EMR reviewed PHYSICAL EXAM: Vital signs: reviewed General: no apparent discomfort or distress, well appearing Eyes: no conjunctival injection, eyes tracking HEENT: airway patent, mucous membranes dry Cardiovascular: regular rhythm, normal rate Respiratory: non-labored breathing, breath sounds clear, no wheezing crackles or rhonchi Gastrointestinal: soft, non-distended, non-tender to deep palpation throughout, no rigidity rebounding or guarding Extremities: no obvious deformity, non edematous Integumentary: warm, dry Neurologic: aler and oriented, nonslurred speech, answering questions appropriately, moves all extremities MEDICAL DECISION MAKING: Medications ondansetron (Zofran) injection 4 mg (4 mg IntraVENous Given 04/09/232037) sodium chloride 0.9 % bolus 1,000 mL (0 mL IntraVENous Stopped 04/09/232107) dicyclomine (Bentyl) capsule 10 mg (10 mg Oral Given 04/09/232037) ondansetron (Zofran) injection 4 mg (4 mg IntraVENous Given 04/10/23207) Woody Ni is a 63 y.o. male who presents as above, with chronic abdominal pain unchanged from baseline, nausea vomiting and diarrhea ongoing for 7 days, recent hospitalization for alcohol detox reports discharged 2 days ago, benign abdominal exam, nontoxic-appearing, he is afebrile, hypertensive, tachycardic-suspect related to dehydration in the setting of poor p.o. intake and vomiting/diarrhea, presentation concerning for metabolic process including dehydration, electrolyte disturbance, clinically low suspicion for an acute intra-abdominal process, discussed with patient, will obtain work-up to evaluate including laboratory evaluation, EKG, will treat with Zofran and IV fluids. Labs obtained, interpreted by me, notable for sodium 124 previously 128 on 04/04/2023, and 134 on 04/02/2023, AST predominant transaminitis with otherwise unremarkable LFTs and lipase, creatinine 1.04, leukopenia WBC 3.3, hemoglobin 10.0, platelets 106 -comparable to prior evaluation, INR 1.0, ethanol 0.210 EKG obtained, per my interpretation, notable for sinus arrhythmia with tachycardic rate, right bundle branch block with left anterior fascicular block. Troponin WNL Given hyponatremia, poor p.o. tolerance, plan for hospitalization for further evaluation and management including IV hydration, I discussed with admitting Dr. Barker at [facility], accepts patient for telemetry admission, patient agreeable, stable for admission at this time. DIAGNOSIS: Hyponatremia, alcohol intoxication, transaminitis DISPOSITION: Admission at [facility] PRESCRIPTIONS: New Prescriptions No medications on file Comment: Please note this report has been produced using speech recognition software and may contain errors related to that system including errors in grammar, punctuation, and spelling, as well as words and phrases that may be inappropriate. If there are any questions or concerns please feel free to contact the dictating provider for clarification. Richie Acosta MD Acute Care [facility] Richie Acosta MD 04/10/23 0240 Patient is here for abdominal pain. He was in the hospital recently for detox and left early for a birthday constitution party. He states he has not ate in 7 days and his stomach is killing him. He admits to drinking 2 beers daily and he is trying to be good. He drank before arrival. He was dropped off by his . He complains of diarrhea. Patient told the same story 3 times upon arrival and appears intoxicated. He states his dropped him off and he was supposed to be at [facility]. Patient uncooperative with intake and would not answer questions directly. Call light within reach and blanket given for comfort. documented in this encounter [facility] 04-10-2023 Emergency department Note Jere Dooley RN 04/10/23 0122 Jere Dooley RN 04/10/23 0134 [facility] 04-10-2023 Emergency department Note [facility] called for transport to [facility]. ETA of 3 hours. Jere Dooley RN 04/10/23 0044 [facility] 04-09-2023 Emergency department Note Pt ambulatory to and from restroom independently. Pt had BM loose stool; specimen collected and sent to lab. Pt again refers to this RN as "chung" then states the police guard is "going to come in here and beat me up" for saying that. Debora Watts RN 04/09/232221 [facility] 04-09-2023 Note NOTE: This result is for medical treatment only. Analysis performed using non-forensic procedures. [facility] 04-09-2023 Emergency department Note This RN to room to start IV on pt. Pt immediately requesting "phenergan shot." Pt was informed that this RN was in room to start IV and then pt would be medicated by Norma BRODERICK after, and that this RN did not know which specific meds were ordered. Pt stating "OK baby doll" to this RN. Since arrival at [facility] pt has continually been calling staff "baby doll" and other endearing terms and acting inappropriately toward staff. Pt does appear intoxicated as well. fire officer was notified and did speak with pt about addressing staff appropriately. This RN and Norma BRODERICK to bedside together for safety. When staff entered room pt had his blanket over his head and stating that he did not mean to offend staff with his "pet name" use. During EKG, IV insertion and med administration, however, the pt continued to refer to both RN's multiple time as baby doll, dear, etc., then would attempt to correct himself and say "nurses" instead. Then pt would again say "baby doll" and other inappropriate terms. Pt was continually reminded to refrain from this but the behavior persisted. Debora Watts RN 04/09/232052 Debora Watts RN 04/09/232056 [facility] 04-09-2023 Emergency department Triage note Patient is here for abdominal pain. He was in the hospital recently for detox and left early for a birthday constitution party. He states he has not ate in 7 days and his stomach is killing him. He admits to drinking 2 beers daily and he is trying to be good. He drank before arrival. He was dropped off by his . He complains of diarrhea. Patient told the same story 3 times upon arrival and appears intoxicated. He states his dropped him off and he was supposed to be at [facility]. Patient uncooperative with intake and would not answer questions directly. Call light within reach and blanket given for comfort. [facility] 04-09-2023 Physician Emergency department Note Emergency Department Encounter [facility] Patient: Woody Ni : 1960 Date of Evaluation: 04/09/2023 ED Provider: Richie Acosta MD Note: I wore an N95 mask and gloves during this encounter. CHIEF COMPLAINT: Abdominal pain, diarrhea HPI: Woody Ni is a 63 y.o. male with PMH per EMR including alcoholism, chronic pain syndrome, cirrhosis, diabetes, hypertension, hyponatremia, prior cholecystectomy, presents concern for abdominal pain, diarrhea. Patient reports he was hospitalized for alcohol detox for the last week, discharged 2 days ago, he reports over the last 7 days he has had poor p.o. tolerance including nausea vomiting and watery bowel movements, he endorses diffuse abdominal pain that is ongoing and unchanged for the last 10 years, describes achy pain throughout his abdomen, he denies fever chills, cough, chest pain, shortness of breath, lightheadedness or dizziness, denies hematochezia or melena, dysuria, or other symptoms or concerns, he reports he last drank 2 beers earlier today, otherwise has not drank for the last week. Patient denies recent antibiotic use. REVIEW OF SYSTEMS: Pertinent positives and negatives as per HPI. HISTORIES: PAST MEDICAL HISTORY: as per HPI SOCIAL HISTORY: Per EMR history of tobacco use, alcohol use, erroneous MEDICATIONS: Nursing notes and EMR reviewed ALLERGIES: Nursing notes and EMR reviewed PHYSICAL EXAM: Vital signs: reviewed General: no apparent discomfort or distress, well appearing Eyes: no conjunctival injection, eyes tracking HEENT: airway patent, mucous membranes dry Cardiovascular: regular rhythm, normal rate Respiratory: non-labored breathing, breath sounds clear, no wheezing crackles or rhonchi Gastrointestinal: soft, non-distended, non-tender to deep palpation throughout, no rigidity rebounding or guarding Extremities: no obvious deformity, non edematous Integumentary: warm, dry Neurologic: aler and oriented, nonslurred speech, answering questions appropriately, moves all extremities MEDICAL DECISION MAKING: Medications ondansetron (Zofran) injection 4 mg (4 mg IntraVENous Given 04/09/232037) sodium chloride 0.9 % bolus 1,000 mL (0 mL IntraVENous Stopped 04/09/232107) dicyclomine (Bentyl) capsule 10 mg (10 mg Oral Given 04/09/232037) ondansetron (Zofran) injection 4 mg (4 mg IntraVENous Given 04/10/23207) Woody Ni is a 63 y.o. male who presents as above, with chronic abdominal pain unchanged from baseline, nausea vomiting and diarrhea ongoing for 7 days, recent hospitalization for alcohol detox reports discharged 2 days ago, benign abdominal exam, nontoxic-appearing, he is afebrile, hypertensive, tachycardic-suspect related to dehydration in the setting of poor p.o. intake and vomiting/diarrhea, presentation concerning for metabolic process including dehydration, electrolyte disturbance, clinically low suspicion for an acute intra-abdominal process, discussed with patient, will obtain work-up to evaluate including laboratory evaluation, EKG, will treat with Zofran and IV fluids. Labs obtained, interpreted by me, notable for sodium 124 previously 128 on 04/04/2023, and 134 on 04/02/2023, AST predominant transaminitis with otherwise unremarkable LFTs and lipase, creatinine 1.04, leukopenia WBC 3.3, hemoglobin 10.0, platelets 106 -comparable to prior evaluation, INR 1.0, ethanol 0.210 EKG obtained, per my interpretation, notable for sinus arrhythmia with tachycardic rate, right bundle branch block with left anterior fascicular block. Troponin WNL Given hyponatremia, poor p.o. tolerance, plan for hospitalization for further evaluation and management including IV hydration, I discussed with admitting Dr. Barker at [facility], accepts patient for telemetry admission, patient agreeable, stable for admission at this time. DIAGNOSIS: Hyponatremia, alcohol intoxication, transaminitis DISPOSITION: Admission at [facility] PRESCRIPTIONS: New Prescriptions No medications on file Comment: Please note this report has been produced using speech recognition software and may contain errors related to that system including errors in grammar, punctuation, and spelling, as well as words and phrases that may be inappropriate. If there are any questions or concerns please feel free to contact the dictating provider for clarification. Richie Acosta MD Acute [facility] Richie Acosta MD 04/10/23 0240 [facility] 04-09-2023 Telephone encounter Note Called pt and left a VM requesting a callback to get him scheduled for a GI follow up. Callback number provided. [facility] 04-09-2023 Miscellaneous Notes Called pt and left a VM requesting a callback to get him scheduled for a GI follow up. Callback number provided. Pt says he saw Dr Valdes in the hosp and was told to contact the office so he could be seen hernando for a follow up. Pt is recently at hospital. Will send out letter to his mailing address. Thank you Please contact patient for hospital follow up for chronic liver disease, history of ETOH abuse and chronic diarrhea documented in this encounter [facility] 04-09-2023 Telephone encounter Note Pt says he saw Dr Valdes in the hosp and was told to contact the office so he could be seen hernando for a follow up. [facility] 04-07-2023 Nurse Note Patient discharge AVS reviewed with patient. Signature obtained. Patient educated on possible overdose due to lower tolerance. Patient understands. Patient denied having any SI/HI/AVH and any pain. 1245- Patient wheeled off unit via wheelchair by transport. [facility] 04-07-2023 Nurse Note Patient discharge AVS reviewed with patient. Signature obtained. Patient educated on possible overdose due to lower tolerance. Patient understands. Patient denied having any SI/HI/AVH and any pain. 1245- Patient wheeled off unit via wheelchair by transport. Patient alert and oreinted during morning assessment. Patient denied having any SI/HI/AVH. Patient complains of 10/10 headache, and nausea. Patient given PRN tylenol at 0923, PRN Zofran at 0924 and PRN Phenergan injection at 0930. Patient encouraged to notify nursing staff of any needs. Will monitor for patient safety. Pt alert and oriented, med compliant, pt states slept poorly through the night, pt denies SI/HI/AVH, pt complains of nausea, vomiting and diarrhea through the night. Pt complains of back pain, tylenol helped and zofran was helpful with nausea and imodium helped for now with diarrhea, will reevaluate. Pt up in group room and social with peers. Pt unable to keep any food down besides chicken broth and ensure at times. 1239- Pt complains of diarrhea, nausea, and back pain, and anxiety pt medicated with tylenol, zofran and imodium, vistaril 1335- pt states tylenol, zofran, vistaril and imodium were effective. 1557- pt complains of diarrhea, medicated with imodium 1629- Pt medicated with phenergan for vomiting and nausea. 1650- Pt states phenergan was effective Pt encouraged to update staff with any change in condition. Will monitor pt for safety. Patient alert and oriented during morning assessment. Patient denied having any SI/HI/AVH and pain. Patient med compliant. Patient complains of having indigestion. Patient given PRN Mylanta. Patient ordered breakfast but did not eat; has no appetite. Patient seen by gastroenterology this morning. Patient encouraged to notify nursing staff of any needs. Will monitor for patient safety. Patient alert and oriented during morning shift assessment. Patient denied having any withdrawal symptoms/SI/HI/AVH. Patient med compliant with all Meds. Patient complains of having 9/10 lower back pain. Patient given PRN tylenol. Patient requested albuterol; 1 puff given. Patient encouraged to order breakfast. Patient encouraged to notify nursing staff of any needs. Will continue to monitor for patient safety. Blood and stool collected for labs and sent to lab for testing. PRN Imodium given to patient at 1545 for diarrhea. Pt alert and oriented, med compliant, pt complains of poor sleep through the night, pt denies SI/HI/AVH, N&V. Pt complains of diarrhea, back pain, tremors, and anxiety. Pt medicated with phenobarbitol, tylenol, zofran, vistaril, and imodium, will reevaluate effectiveness. Pt back to bed to rest, lunch ordered at 1000 1000- pt states vistaril, zofran, tylenol and imodium were effective. 1144 Pt complains of diarrhea, medicated with imodium. 1244- Pts diarrhea resolved at this time. 1500- Pt complains of indigestion medicated with maalox 1600- Maalox effective at this time. 1733- Maalox given for indigestion and imodium given for diarrhea 1833- Maalox and imodium effective Pt encouraged to update staff with any change in condition. Will monitor pt for safety. documented in this encounter [facility] 04-07-2023 Note Formatting of this n ote might be different from the original. FLIGHT SECURITY SPECIALIST saw patient to discuss aftercare plans and treatment post discharge. Patient was reminded about virtual intake appointment with [facility] program on 04/08/2023 at 1:30 PM. FLIGHT SECURITY SPECIALIST explained that agency has sent a link via text messages on his phone. Patient denied current SI/HI/AVH. Patient reported that their son would be picking them up from the hospital and taking them back home. Patient denied needing anything further from FLIGHT SECURITY SPECIALIST at the time. FLIGHT SECURITY SPECIALIST informed patient's nurse about conversation. [facility] 04-07-2023 Note Formatting of this n ote might be different from the original. FLIGHT SECURITY SPECIALIST saw patient to discuss aftercare plans and treatment post discharge. Patient was reminded about virtual intake appointment with [facility] program on 04/08/2023 at 1:30 PM. FLIGHT SECURITY SPECIALIST explained that agency has sent a link via text messages on his phone. Patient denied current SI/HI/AVH. Patient reported that their son would be picking them up from the hospital and taking them back home. Patient denied needing anything further from FLIGHT SECURITY SPECIALIST at the time. FLIGHT SECURITY SPECIALIST informed patient's nurse about conversation. [facility] 04-07-2023 Miscellaneous Notes FLIGHT SECURITY SPECIALIST saw patient to discuss aftercare plans and treatment post discharge. Patient was reminded about virtual intake appointment with [facility] program on 04/08/2023 at 1:30 PM. FLIGHT SECURITY SPECIALIST explained that agency has sent a link via text messages on his phone. Patient denied current SI/HI/AVH. Patient reported that their son would be picking them up from the hospital and taking them back home. Patient denied needing anything further from FLIGHT SECURITY SPECIALIST at the time. GISSELL informed patient's nurse about conversation. Problem: Sensory Perceptual Alteration as Evidenced by Goal: Cooperates with admission process Outcome: Adequate for Discharge Goal: Patient/Family participate in treatment and discharge plans Outcome: Adequate for Discharge Goal: Patient/Family verbalizes awareness of resources Outcome: Adequate for Discharge Goal: Participates in unit activities Outcome: Adequate for Discharge Goal: Discusses signs/symptoms of illness/treatment options Outcome: Adequate for Discharge Goal: Initiates reality-based interactions Outcome: Adequate for Discharge Goal: Able to discuss content of hallucinations/delusions Outcome: Adequate for Discharge Goal: Notifies staff when experiencing hallucinations/delusions Outcome: Adequate for Discharge Goal: Verbalizes reduction in hallucinations/delusions Outcome: Adequate for Discharge Goal: Will not act on psychotic perception Outcome: Adequate for Discharge Goal: Understands least restrictive measures Outcome: Adequate for Discharge Goal: Free from restraint events Outcome: Adequate for Discharge Problem: Problem Interventions Goal: Dietary Supplements Outcome: Adequate for Discharge Department: [facility] Group Topic: Other Group Date: 04/06/2023 Start Time: 1108 End Time: 1203 Facilitators: Dee Blas Number of Participants: 7 Group Name: Recreation Therapy Treatment Modality: Recreation Therapy Purpose: enhance coping skills, encourage positivity Summary: Gratitude - Patients are given the opportunity to explore positives in their life. Patients explore challenges they face in recognizing gratitude during a difficult time. Name: Woody Ni Date of : 1960 MR: [id number] Appearance: Good eye contact Affect: Appropriate Behavior: Pleasant Alertness: Alert Speech: Appropriate Level/Quality of Participation: engaged Interactions with others: supportive Interventions utilized were Building rapport and engagement and Empathic listening Patient's Response to Intervention: Patient participated appropriately in intervention. Patient engaged in discussion and was able to identify multiple areas of gratitude. Patient spoke about the impact of their addiction on their lives, as well as, plans to improve their lives. Patient had good eye contact with interactions and was supportive toward peers. Continue to encourage group participation as appropriate. Patients Problems: Patient Active Problem List Diagnosis Osteoarthritis of spine with radiculopathy, lumbar region Essential hypertension Hyponatremia Diabetes (HCC) Hypovolemia Cirrhosis (HCC) Chronic alcoholic hepatitis Asthma Severe malnutrition (CMS/HCC) (HCC) Thyroid disease SHAYLA (obstructive sleep apnea) Lumbar stenosis Postural dizziness with presyncope HLD (hyperlipidemia) Hepatitis Intractable nausea and vomiting Chronic pain syndrome Complication of surgical procedure Intercostal pain Low back pain Mild recurrent major depression (HCC) Myalgia Right hip pain Shoulder joint pain Acute kidney injury (CMS/HCC) (HCC) DENNYS (acute kidney injury) (CMS/HCC) (HCC) Gallbladder sludge RUQ pain Acute on chronic cholecystitis 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) Severe alcohol use disorder (HCC) Alcohol withdrawal syndrome without complication (HCC) The patient is Moderately Stable - Low risk of patient condition declining or worsening The patient's goals for the shift include rest The clinical goals for the shift include safety Problem: Sensory Perceptual Alteration as Evidenced by Goal: Cooperates with admission process Outcome: Progressing Goal: Patient/Family participate in treatment and discharge plans Outcome: Progressing Goal: Patient/Family verbalizes awareness of resources Outcome: Progressing Goal: Participates in unit activities Outcome: Progressing Goal: Discusses signs/symptoms of illness/treatment options Outcome: Progressing Goal: Initiates reality-based interactions Outcome: Progressing Goal: Able to discuss content of hallucinations/delusions Outcome: Progressing Goal: Notifies staff when experiencing hallucinations/delusions Outcome: Progressing Goal: Verbalizes reduction in hallucinations/delusions Outcome: Progressing Goal: Will not act on psychotic perception Outcome: Progressing Goal: Understands least restrictive measures Outcome: Progressing Goal: Free from restraint events Outcome: Progressing Problem: Problem Interventions Goal: Dietary Supplements Outcome: Progressing Problem: Sensory Perceptual Alteration as Evidenced by Goal: Cooperates with admission process Outcome: Adequate for Discharge Goal: Patient/Family participate in treatment and discharge plans Outcome: Adequate for Discharge Goal: Patient/Family verbalizes awareness of resources Outcome: Adequate for Discharge Goal: Participates in unit activities Outcome: Adequate for Discharge Goal: Discusses signs/symptoms of illness/treatment options Outcome: Adequate for Discharge Goal: Initiates reality-based interactions Outcome: Adequate for Discharge Goal: Able to discuss content of hallucinations/delusions Outcome: Adequate for Discharge Goal: Notifies staff when experiencing hallucinations/delusions Outcome: Adequate for Discharge Goal: Verbalizes reduction in hallucinations/delusions Outcome: Adequate for Discharge Goal: Will not act on psychotic perception Outcome: Adequate for Discharge Goal: Understands least restrictive measures Outcome: Adequate for Discharge Goal: Free from restraint events Outcome: Adequate for Discharge Problem: Problem Interventions Goal: Dietary Supplements Outcome: Adequate for Discharge Problem: Sensory Perceptual Alteration as Evidenced by Goal: Cooperates with admission process Outcome: Adequate for Discharge Goal: Patient/Family participate in treatment and discharge plans Outcome: Adequate for Discharge Goal: Patient/Family verbalizes awareness of resources Outcome: Adequate for Discharge Goal: Participates in unit activities Outcome: Adequate for Discharge Goal: Discusses signs/symptoms of illness/treatment options Outcome: Adequate for Discharge Goal: Initiates reality-based interactions Outcome: Adequate for Discharge Goal: Able to discuss content of hallucinations/delusions Outcome: Adequate for Discharge Goal: Notifies staff when experiencing hallucinations/delusions Outcome: Adequate for Discharge Goal: Verbalizes reduction in hallucinations/delusions Outcome: Adequate for Discharge Goal: Will not act on psychotic perception Outcome: Adequate for Discharge Goal: Understands least restrictive measures Outcome: Adequate for Discharge Goal: Free from restraint events Outcome: Adequate for Discharge Problem: Problem Interventions Goal: Dietary Supplements Outcome: Adequate for Discharge Problem: Sensory Perceptual Alteration as Evidenced by Goal: Cooperates with admission process Outcome: Progressing Goal: Patient/Family participate in treatment and discharge plans Outcome: Progressing Goal: Patient/Family verbalizes awareness of resources Outcome: Progressing Goal: Participates in unit activities Outcome: Progressing Goal: Discusses signs/symptoms of illness/treatment options Outcome: Progressing Goal: Initiates reality-based interactions Outcome: Progressing Goal: Able to discuss content of hallucinations/delusions Outcome: Progressing Goal: Notifies staff when experiencing hallucinations/delusions Outcome: Progressing Goal: Verbalizes reduction in hallucinations/delusions Outcome: Progressing Goal: Will not act on psychotic perception Outcome: Progressing Goal: Understands least restrictive measures Outcome: Progressing Goal: Free from restraint events Outcome: Progressing Consult acknowledged. Labs and vitals reviewed. The patient will be seen tomorrow with full consult note to follow. Thank you for the opportunity to participate in the care of this patient. Please reach out with concerns or questions. Inder Stein DO FLIGHT SECURITY SPECIALIST met with patient who was still agreeable to virtual IOP program with [facility] program. Patient signed MALINI. FLIGHT SECURITY SPECIALIST will send referral information for intake appointment. All information will be included in patient's discharge paperwork. Behavioral Health Psycho-Social Assessment (Social Work) Date: 04/03/2023 Patient Name: Woody Ni : 1960 Identifying Information: Patient is a 63-year-old male admitted to E4 for detox from alcohol. Patient is unknown to recommended team as he has not been previously on the unit. Presenting Problem: Patient presented to the ED on 04/02/2023 requesting detox from alcohol. Patient reports that he has been drinking with his last drink occurring on 04/02/2023. Patient reports that epigastric abdominal pain. 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 Patient reports seeing a GI specialist and has been advised to stop drinking. Psychiatric History: Patient reports mental health diagnosis of depression and anxiety. Patient is not currently on any medication for mental health needs. Patient does report previous history of being on Ativan. Patient does not currently engage with any outpatient mental health treatment. Patient not report any past history of outpatient mental health treatment. Patient denies any history of psychiatric admission. Patient denies any recent or past history of suicide attempts. Patient denies any current SI/HI/AVH. Patient does report previous history of passive SI secondary to intoxication. Patient denies plan, intent, or method but reports more increased feelings of sadness and depression. Patient denies any recent or past history of SIB. Substance Abuse/Use: Patient reports that he is currently drinking 6, 24 ounce but ice beers daily. Patient denies any liquor use. Patient reports that his last use was 04/02/2023. Patient's labs are positive for alcohol (0.352). Patient's labs are also positive for barbiturates. Patient reports that he for started drinking alcohol when he was 16 years old. Patient reports his drink became regular/social when he turned 18 years old and enlisted in the [employer]. Patient reports his drink became problematic within his 20s. Patient denies any history of alcohol overdoses, withdrawal seizures, or DTs. Patient does report history of falls while intoxicated including those with head injury. Patient is currently drinking to the point of intoxication, blackouts, and vomiting. Patient denies any history of MAT for substance use disorder, engagement in IOP or AA. Patient reports his longest period of sobriety is 5 to 6 years which ended 2 years ago. Patient denies any previous history of detox or residential treatment. Medical/Self-care Issues: Patient reports medical issues of cirrhosis of the liver. Patient reports struggles with self-care secondary to substance use. Patient reports increasing with frequency and tolerance over time. Patient also reports struggling to recover from the effects of substance use. Patient reports experiencing poor hygiene, sleep, and nutrition secondary to substance use disorder. Legal/Trauma/ History: Patient denies any current or past legal issues. Patient denies any history of trauma abuse as an adolescent. Patient denies any history of trauma or abuse as an adult. Patient is a [employer] . Patient reports having a listed shortly after turning 18 years old. Patient reports he was stationed [place] miles from [facility] in -. Patient reports having an honorable discharge. Family Constellation/Childhood History: Patient reports he is currently living in [place] patient denies have any biological children. Patient reports having 3 stepchildren whom he has help to raise. [place] with his longtime girlfriend. Patient has a previous history of divorce. Patient reports that he has 2 sisters whom he maintains a relationship with. Patient reports that his mother . Patient reports his 86-year-old father currently lives with one of his sisters. Patient reports that he grew up in [place] by his biological mother and father. Patient denies any history of adolescent childhood trauma or abuse. 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 Patient is currently unemployed and receives SSI/SSD. Cultural/Spirituality/Leisure: Patient denies any cultural needs or concerns at the current time. Patient denies identify any yazdanism preference at current time. Patient is not attending services anywhere. Patient reports in his leisure time he enjoys watching [place] [employer] sports and football. Support Systems/Collateral Information: Patient reports that his girlfriend is his primary social support. Patient reports that she is sober and supportive of all of his recovery efforts and needs. Patient reports that she is aware that he was admitted to the hospital. C-SSRS Actual Attempt (Past 3 Months): No (Patient denies any history of psychiatric admission. Patient denies any recent history of suicide attempts.) Actual Attempt (Lifetime): No (Patient denies any past history of suicide attempts.) Interrupted Attempts (Past 3 Months): No (Patient denies) Interrupted Attempts (Lifetime): No (Patient denies) Aborted or Self-Interrupted Attempt (Past 3 Months): No (Patient denies) Aborted or Self-Interrupted Attempt (Lifetime): No (Patient denies) Preparatory Acts or Behavior (Past 3 Months): No (Patient denies) Preparatory Acts or Behavior (Lifetime): No (Patient denies) Has subject engaged in non-suicidal self-injurious behavior? (Past 3 Months): No (Patient denies any recent history of SIB.) Has subject engaged in non-suicidal self-injurious behavior? (Lifetime): No (Patient denies any past history of SIB.) Suicidal Ideation: (Patient denies any current SI/HI/AVH. Patient does report previous history of passive SI secondary to intoxication. Patient denies plan, intent, or method but reports more increased feelings of sadness and depression.) Activating Events (Recent): Recent loss(es) or other significant negative event(s) (legal, financial, relationship, etc.) Describe:: Ongoing struggles with substance use disorder. Treatment History: Previous psychiatric diagnoses and treatments, Not receiving treatment (Patient reports mental health diagnosis of depression and anxiety. Patient is not currently on any medication for mental health needs. Patient does report previous history of being on Ativan. Patient does not currently engage with any OP MH Tx) Clinical Status (Recent): Hopelessness, Major depressive episode, Substance abuse or dependence, Agitation or severe anxiety, Highly impulsive behavior, Perceived burden on family or others, Chronic physical pain or other acute medical problem (HIV/AIDS, COPD, cancer, etc.) (Risk factors) Protective Factors (Recent): Identifies reasons for living, Responsibility to family or others and/or living with family, Supportive social network or family (Protective factors) Describe any suicidal, self-injurious or aggressive behavior (include dates): Patient denies any history of psychiatric admission. Patient denies any recent or past history of suicide attempts. Patient denies any current SI/HI/AVH. Patient does report previous history of passive SI secondary to intoxication. Patient denies plan, intent, or method but reports more increased feelings of sadness and depression. Patient denies any recent or past history of SIB. Patient reports mental health diagnosis of depression and anxiety. Patient is not currently on any medication for mental health needs. Patient does report previous history of being on Ativan. Patient does not currently engage with any outpatient mental health treatment. Patient not report any past history of outpatient mental health treatment. Plan: Patient reports having some limitations with outpatient treatment due to transportation issues. Patient and FLIGHT SECURITY SPECIALIST discussed alternative options in the community that provide virtual assessment and IOP services. Patient is interested in the services and willing to engage in them. FLIGHT SECURITY SPECIALIST will assist patient with scheduling aftercare appointments. Patient encouraged to engage in activities that are offered and ways in the unit. Patient not report anything additional at current time. Patient encouraged to seek out FLIGHT SECURITY SPECIALIST unit staff should he identify any additional needs or concerns. Comment: Please note this report has been produced using speech recognition software and may contain errors related to that system including errors in grammar, punctuation, and spelling, as well as words and phrases that may be inappropriate. If there are any questions or concerns please feel free to contact the dictating provider for clarification. documented in this encounter [facility] 04-07-2023 Hospital course Narrative Physician Discharge Summary Patient ID: Woody Ni [id number] y.o. 1960 Admit date: 04/02/2023 Discharge date and time: 04/07/23 Admitting Physician: Maxwell Hinson MD Discharge Physician: ALBERTO PEREZ MD, DO Admission Diagnoses: Alcohol withdrawal syndrome without complication (HCC) [F10.930] Alcohol use disorder [F10.90] Substance dependence disorder Discharge Diagnoses: Alcohol withdrawal syndrome without complication (HCC) [F10.930] Alcohol use disorder [F10.90] Admission Condition: UNSTABLE, IN ACTIVE WITHDRAWAL Discharged Condition: STABLE, GOOD Hospital Course: Patient was admitted to the detox unit and started on phenobarbital, the dose of which was tapered according to his clinical signs and symptoms. Patient was given prn medications as well as thiamine and folic acid. Patient was monitored with the [facility]. On the day of discharge patient was denying residual symptoms of withdrawal. Patient was compliant with the rules and regulations of the unit and appropriate with staff and peers. On the day of discharge the patient was supposed to stay another day but he got so irritated saying that he can not take his pain medication which he failed to mention prior to that He says he has been getting it for 20 years legally and want to go get his script and take his pain meds Advised to tell his provider about his alcohol issue Reviewed his oars and he has been getting his oxycodone regularly ROS Patient denies nausea, vomitting, diarrhea. Denies CP or SOB.Denies audio-, visual or tactile hallucinations. Denies dizziness or visual changes. Denies acute pain. Denies rhinorrhea, lacrimation, cough or sore throat. No difficulty ambulating, urinating, swallowing Review of systems: Denies suicidal or homicidal ideation denies tactile auditory or visual hallucinations All of systems ROS was completed and was negative unless stated above Consults: IP CONSULT TO DIETITIAN IP CONSULT TO INTERNAL MEDICINE IP CONSULT TO GI Significant Diagnostic Studies: Recent Results (from the past 48 hour(s)) Phenobarbital level Collection Time: 04/06/23 4:10 PM Result Value Ref Range PHENOBARBITAL 32.1 10.0 - 40.0 ug/mL POCT glucose meter Collection Time: 04/06/23 6:06 PM Result Value Ref Range Glucose 164 (H) 70 - 100 mg/dL POCT glucose meter Collection Time: 04/07/23 4:18 AM Result Value Ref Range Glucose 114 (H) 70 - 100 mg/dL Discharge Exam: BP 128/80 (BP Location: Right arm, Patient Position: Lying) Pulse 90 Temp 36.2 C (97.2 F) (Temporal) Resp 18 Ht 1.778 m (5' 10") Wt 72.6 kg (160 lb) SpO2 99% BMI 22.96 kg/m Patient seen and examined. Alert and oriented x 3. NAD. Head NCAT. Skin: warm. PERRL. Sclera clear. Conjunctiva clear. No nystagmus. Tongue is pink, moist, midline and non-tremulous. Upper extremeties demonstrate no gross visible or palpable tremor. Chest: moves symmetrically with respiration, no audible wheezes. CNII-XII are grossly intact. Sensation appears to be intact in distal extremities and no visible edema noted in distal extremities. Gait stable. Insight and judgement are fair. Denies suicidal or homocidal ideation. Cognition intact. Denies audio, visual or tactile hallucinations. Not responding to internal stimuli Disposition: home Patient Instructions: @MEDDISCHARGEMEDSCONT@ Activity: RESUME REGULAR ACTIVITY Diet: RESUME REGULAR HOME DIET Follow-up with PCP in 1-2 WEEKS Instructions After detox you should abstain from any use of any mood altering chemical Appointment with your primary care physician should be scheduled It is highly recommended that you attend post hospital treatment Please read the information give to you - Intro to 12 step programs Call the National Suicide Prevention Hotline if needed at: 3-634-882-IBPO (5626) Please call the following number should you have questions regarding your discharge or aftercare appointments: [address] I spent total time 35 minutes counseling and coordinating care and provided discussion regarding the patient condition, diagnosis, symptoms signs and lab work, and treatment plan and options. Signed: ALBERTO PEREZ MD, MD 04/07/2023 11:11 AM documented in this encounter [facility] 04-07-2023 History of Present illness Narrative Chief complaint Chief Complaint Patient presents with Alcohol Problem Seen for follow up of substance dependence and use and to monitor withdrawals S: Patient seen and examined. Overall symptoms improving. REVIEW OF SYMPTOMS: Patient denies CP or SOB.Denies audio-, visual or tactile hallucinations. Denies dizziness or visual changes. Denies acute pain. Denies rhinorrhea, lacrimation, cough or sore throat. No difficulty ambulating, urinating, swallowing. Denies rash Has been having nausea and diarrhea The patient says that theses symptoms has been chronic for long time now even way before coming to the detox and he says that he has appointments with gi for that issue O: Vitals: 04/07/23 0845 BP: 128/80 Pulse: 90 Resp: 18 Temp: 36.2 C (97.2 F) SpO2: 99% Patient seen and examined. Alert and oriented x 3. NAD. Head: NCAT. Skin: warm, dry CNII-XII are grossly intact. And symmetrical Sensation appears to be intact in distal extremities and Gait stable. Insight and judgement are fair. Denies suicidal or homocidal ideation. Cognition intact. Denies audio, visual or tactile hallucinations. Not responding to internal stimuli, good eye contact. Recent Results (from the past 24 hour(s)) Phenobarbital level Collection Time: 04/06/23 4:10 PM Result Value Ref Range PHENOBARBITAL 32.1 10.0 - 40.0 ug/mL POCT glucose meter Collection Time: 04/06/23 6:06 PM Result Value Ref Range Glucose 164 (H) 70 - 100 mg/dL POCT glucose meter Collection Time: 04/07/23 4:18 AM Result Value Ref Range Glucose 114 (H) 70 - 100 mg/dL Assessment/Plan: alcohol use disorder severe with withdrawal Day # 3-4 of no use Evaluated the patient ciwa score and is low, and will adjust the phenobarb according to the current symptoms/signs continue to monitor and participate in the unit acitivities Estimate need 1-2 extra days of detox recommend follow up after discharge per SW I spent total time 50 minutes counseling, coordinating care and provided discussion regarding this patient's condition ,chemical dependency, psychiatric and medical history, symptoms and signs , reviewing past detoxification hospitalizations, assessing withdrawal status, evaluating detoxification medications, and discussing lab work and treatment plan, with providing options. ALBERTO PEREZ MD, MD Addiction Medicine 04/07/2023 at 9:37 AM This nurse to care for patient during shift. Pt cooperative but very intrusive and attention seeking at times. Pt had moments of anger during shift making statements of "I hate the nurses here". When asked why patient stated, "I said I hate that the nurses don't believe me". Pt educated that nurses are doing all they can in giving pt the healthcare we can. Pt became argumentative in which this nurse ended encounter. Pt also continued to bring other patient encounters up throughout the night to this nurse and other nurse on shift. Pt educated that encounter was over and did not need to continue to be brought up. Pt requested oxycodone in which this nurse educated pt that that specific medication was not ordered in which pt than began making comments about "well I didn't sign anything to be here" and " I don't remember signing anything to be here I was drunk" and "I said I would give up my alcohol not my pain pills". This nurse educated patient that this is a voluntary unit and that in order for patient to be admitted to this floor, consent had to be given. Pt behavior began to calm down towards the end of the shift in which pt was laughing and interacting with staff and peers appropriately. Pt apologized to this nurse and other shift nurse for behaviors throughout the night. This nurse educated patient that it was ok and that the staff here cares about the patient and the care being received. Pt verbalized understanding. Pt demonstrated use of the call light appropriately and was encouraged to notify staff of any changes/needs that may arise. Pt again verbalized understanding. Chief complaint Chief Complaint Patient presents with Alcohol Problem Seen for follow up of substance dependence and use and to monitor withdrawals S: Patient seen and examined. Overall symptoms improving. REVIEW OF SYMPTOMS: Patient denies CP or SOB.Denies audio-, visual or tactile hallucinations. Denies dizziness or visual changes. Denies acute pain. Denies rhinorrhea, lacrimation, cough or sore throat. No difficulty ambulating, urinating, swallowing. Denies rash O: Vitals: 04/06/23 1104 BP: 123/71 Pulse: 101 Resp: 16 Temp: 36.4 C (97.5 F) SpO2: 98% Patient seen and examined. Alert and oriented x 3. NAD. Head: NCAT. Skin: warm, dry CNII-XII are grossly intact. And symmetrical Sensation appears to be intact in distal extremities and Gait stable. Insight and judgement are fair. Denies suicidal or homocidal ideation. Cognition intact. Denies audio, visual or tactile hallucinations. Not responding to internal stimuli, good eye contact. No results found for this or any previous visit (from the past 24 hour(s)). Assessment/Plan: alcohol use disorder severe with withdrawal Day # 2-3 of no use Evaluated the patient ciwa score and is low, and will adjust the phenobarb according to the current symptoms/signs continue to monitor and participate in the unit acitivities Estimate need 1-2 extra days of detox recommend follow up after discharge per SW I spent total time 50 minutes counseling, coordinating care and provided discussion regarding this patient's condition ,chemical dependency, psychiatric and medical history, symptoms and signs , reviewing past detoxification hospitalizations, assessing withdrawal status, evaluating detoxification medications, and discussing lab work and treatment plan, with providing options. ALBERTO PEREZ MD, MD Addiction Medicine 04/06/2023 at 11:20 AM Images from the original note were not included. Addiction Medicine Patient: Woody Ni Admit Date: 04/02/2023 Primary Care Physician: Jani Quezada History of Present Illness The patient continues to be monitored by chemical dependency services. As of this morning patient was receiving phenobarbital 64.8 mg every 6 hours for alcohol withdrawal syndrome. He did state that he felt much better in reference to withdrawal symptomatology. Anxiety, sweats, tremors abating. Appetite intact. Feels stronger, more alert. Medical work-up in progress for weight loss, possible neuropathy. Pertinent findings to this point patient positive for hep C virus antibody. Sodium remains low at 128. There is a history of cirrhosis. GI php consultant did recommend outpatient EGD, colonoscopy and work-up for hepatitis C treatment. Social History Socioeconomic History Marital status: Spouse name: Not on file Number of children: Not on file Years of education: Not on file Highest education level: Not on file Occupational History Not on file Tobacco Use Smoking status: Every Day Types: Cigars Last attempt to quit: 1982 Years since quittin.4 Smokeless tobacco: Former Vaping Use Vaping Use: Every day Substances: CBD, canabis Devices: Disposable Substance and Sexual Activity Alcohol use: Yes Alcohol/week: 42.0 standard drinks of alcohol Types: 42 Cans of beer per week Comment: TALL BOY ARE DOUBLE BEERS 42 per week Drug use: Yes Types: Marijuana Comment: daily Sexual activity: Not on file Other Topics Concern Not on file Social History Narrative Not on file Social Determinants of Health Financial Resource Strain: Not on file Food Insecurity: Not on file Transportation Needs: No Transportation Needs (04/03/2023) PRAPARE - Transportation Lack of Transportation (Medical): No Lack of Transportation (Non-Medical): No Physical Activity: Inactive (04/03/2023) Exercise Vital Sign Days of Exercise per Week: 0 days Minutes of Exercise per Session: 0 min Stress: No Stress Concern Present (04/03/2023) [employer] [employer] - Occupational Stress Questionnaire Feeling of Stress : Not at all Social Connections: Not on file Intimate Partner Violence: Not At Risk (02/11/2023) Humiliation, Afraid, Rape, and Kick questionnaire Fear of Current or Ex-Partner: No Emotionally Abused: No Physically Abused: No Sexually Abused: No Housing Stability: Low Risk (04/03/2023) Housing Stability Vital Sign Unable to Pay for Housing in the Last Year: No Number of Places Lived in the Last Year: 1 Unstable Housing in the Last Year: No 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 Nausea and vomiting 12/22/22-12/26/22 admitted at [facility] Pain management Sleep apnea noncompliant with device Past Surgical History: Procedure Laterality Date BACK SURGERY x 2 CHOLECYSTECTOMY LAMINECTOMY LAP,CHOLECYSTECTOMY (HISTORICAL) N/A 01/05/2023 WISDOM TOOTH EXTRACTION Family History Problem Relation Name Age of Onset Depression Mother Depression Maternal Grandmother Labs Recent Results (from the past 48 hour(s)) Hepatitis C antibody Collection Time: 04/04/23 2:45 PM Result Value Ref Range HEPATITIS C VIRUS AB Detected (A) Not Detected Basic metabolic panel Collection Time: 04/04/23 2:45 PM Result Value Ref Range SODIUM 128 (L) 135 - 145 mmol/L POTASSIUM 3.6 3.5 - 5.1 mmol/L CHLORIDE 99 98 - 107 mmol/L CARBON DIOXIDE 21 (L) 22 - 30 mmol/L UREA NITROGEN 7 (L) 9 - 20 mg/dL CREATININE 0.82 0.66 - 1.25 mg/dL GLUCOSE 188 (H) 70 - 100 mg/dL CALCIUM 8.3 (L) 8.4 - 10.4 mg/dL ANION GAP 9 3 - 13 mmol/L eGFR >90.0 >60.0 mL/min/1.73m*2 Vitamin B12 Collection Time: 04/04/23 2:45 PM Result Value Ref Range VITAMIN B12 605 239 - 931 pg/mL Gastrointestinal PCR Panel Collection Time: 04/04/23 3:21 PM Specimen: Per Rectum; Stool Result Value Ref Range Campylobacter Not Detected Not Detected Plesiomonas shigelloides Not Detected Not Detected Salmonella Not Detected Not Detected Vibrio species Not Detected Not Detected Vibrio cholerae Not Detected Not Detected Yersinia enterocolitica Not Detected Not Detected Enterotoxigenic E coli (ETEC) Not Detected Not Detected Shiga toxin-producing E coli (STEC) Not Detected Not Detected Shigella/Enteroinvasive E coli (EIEC) Not Detected Not Detected Cryptosporidium Not Detected Not Detected Cyclospora cayetanensis Not Detected Not Detected Entamoeba histolytica Not Detected Not Detected Giardia lamblia Not Detected Not Detected Adenovirus F 40/41 Not Detected Not Detected Astrovirus Not Detected Not Detected Norovirus GI/GII Not Detected Not Detected Rotavirus A Not Detected Not Detected Sapovirus Not Detected Not Detected Medications Home Meds: Prior to Admission medications Medication Sig Start Date End Date Taking? Authorizing Provider acetaminophen (Tylenol) 325 MG tablet every 4 hours as needed. Historical Provider, albuterol (2.5 MG/3ML) 0.083% nebulizer solution Inhale 2.5 mg. PRN Historical Provider, albuterol 108 (90 Base) MCG/ACT inhaler every 4 hours. Historical Provider, alendronate (Fosamax) 70 MG tablet Take 70 mg by mouth once a week. 05/19/17 Historical Provider, amLODIPine (Norvasc) 2.5 MG tablet Take 2.5 mg by mouth in the morning. 05/27/17 Historical Provider, Bioflavonoid Products (Alana-C) tablet Every 24 hours. Historical Provider, calcium carbonate (Tums) 500 MG chewable tablet Chew 1 tablet (500 mg) daily. Do not start before February 15, 2023. 02/15/23 02/15/24 Kacie Benz, cyanocobalamin (Vitamin B-12) 1000 MCG/ML injection 1 mL intramuscularly once a month Historical Provider, dicyclomine (Bentyl) 20 MG tablet Take 1 tablet (20 mg) by mouth in the morning and 1 tablet (20 mg) at noon and 1 tablet (20 mg) in the evening. Take before meals. 11/07/22 11/07/23 Beryl Holder PA-C fluticasone (Flonase) 50 MCG/ACT nasal spray Administer 1 spray into affected nostril(s). 04/27/17 Historical Provider, ipratropium (Atrovent) 0.02 % nebulizer solution PRN 05/04/17 Historical Provider, ipratropium-albuterol (Duo-Neb) 0.5-2.5 mg/3 mL nebulizer solution every 6 hours. Historical Provider, ketoconazole (NIZOral) 2 % shampoo EVERY THREE DAYS 11/18/19 Historical Provider, levothyroxine (Synthroid, Levoxyl) 50 MCG tablet TAKE 1 TABLET BY MOUTH DAILY 06/06/22 06/06/23 Nicolas Qiu losartan (Cozaar) 100 MG tablet Take 1 tablet (100 mg) by mouth daily. Do not start before February 15, 2023. 02/15/23 02/15/24 Kacie Benz DO niacin 100 MG tablet Every 24 hours. Historical Provider, nitroglycerin (Nitrostat) 0.4 MG SL tablet 1 tab(s) sublingually every 5 minutes x 3 doses prn Historical Provider, ondansetron (Zofran) 4 MG tablet Every 24 hours. Historical Provider, oxyCODONE (Roxicodone) 10 MG immediate release tablet Take 10 mg by mouth in the morning and 10 mg at noon and 10 mg in the evening and 10 mg before bedtime. 05/29/17 Historical Provider, pantoprazole (ProtoNix) 40 MG EC tablet Take 40 mg by mouth daily. Historical Provider, potassium chloride ER (Micro-K) 10 MEQ ER capsule Take 10 mEq by mouth in the morning. 03/30/17 Historical Provider, sodium chloride 1 g tablet Take 1 tablet (1 g) by mouth in the morning and 1 tablet (1 g) in the evening. Take with meals. 02/14/23 02/14/24 Kacie Benz, tamsulosin (Flomax) 0.4 MG 24 hr capsule Take 0.4 mg by mouth daily. 01/27/22 Historical Provider, Inpatient Scheduled Meds: amLODIPine, 2.5 mg, Oral, Daily cyanocobalamin, 100 mcg, Oral, Daily dicyclomine, 20 mg, Oral, TID AC folic acid, 1 mg, Oral, Daily levothyroxine, 50 mcg, Oral, qAM AC losartan, 100 mg, Oral, Daily pantoprazole, 40 mg, Oral, Daily PHENobarbital, 64.8 mg, Oral, q6h potassium chloride CR, 10 mEq, Oral, Daily sodium chloride, 1 g, Oral, BID WC tamsulosin, 0.4 mg, Oral, Daily therapeutic multivitamin-minerals, 1 tablet, Oral, Daily Thiamine Mononitrate, 100 mg, Oral, Daily Inpatient PRN Meds: PRN medications: acetaminophen, albuterol, albuterol, aluminum & magnesium hydroxide-simethicone, hydrOXYzine pamoate, loperamide, nitroglycerin, ondansetron ODT, traZODone Exam Vitals: 04/04/23 2346 04/05/23 0527 04/05/23 0812 04/05/23 1116 BP: 132/88 (!) 133/96 110/74 139/87 BP Location: Right arm Right arm Patient Position: Lying Lying Pulse: 79 84 96 98 Resp: 18 18 16 15 Temp: 36.6 C (97.8 F) 36.7 C (98 F) 36.2 C (97.2 F) 36.4 C (97.5 F) TempSrc: Temporal Temporal Temporal Temporal SpO2: 99% 99% 100% 99% Weight: Height: Physical Exam Patient resting comfortably in bed. He is not flushed or diaphoretic. Oriented x4, pleasant. Moderate tremors persist. Ambulating more steadily with the assistance of a cane. There are no auditory, tactile or visual disturbances. Assessment & Plan At this point in time we will continue phenobarbital taper for alcohol withdrawal syndrome, monitor. Medical work-up continues.. Tentative plan is for this patient to transition to the [facility] intensive outpatient program at [facility] FLAVIO SHERMAN MD Addiction Medicine 04/05/2023 at 1:32 PM -50-- minutes were spent reviewing the patient's records, evaluating the patient, entering orders, coordinating care with the treatment team, and creating a progress note. Narrative portions of the note are written utilizing [employer] software. While every effort is made to dictate clearly and proofread, errors in the dictation may still occur. If there are any questions regarding the dictation please do not hesitate to contact the author. Images from the original note were not included. [facility] Progress Note 6AM-6PM please message me via [employer] Secure Chat. 6PM-6AM please page [facility] [employer] Woody Ni : 1960(63 y.o.) PCP: Jani Quezada Assessment and Plan: Principal Problem: Alcohol withdrawal syndrome without complication (HCC) Active Problems: Severe malnutrition (CMS/HCC) (HCC) Severe alcohol use disorder (HCC) #Unintentional Weight Loss #Malnutrition #EtOH Use disorder #Pancytopenia #Transaminitis -HCV came back positive, viral load has been ordered. 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 Please reach out for questions or change in clinical status I personally examined the patient and reviewed chart, data, labs and radiology reports. Plan of care was discussed with patient, all questions answered. Total time spent: 35 minutes, preparing to see the patient (reviewed prior notes and current laboratory findings/imaging reports), performing the exam and evaluation, counseling the patient, ordering labs and/or diagnostic studies, documenting the encounter and coordinating care. Subjective: Chief Complaint Patient presents with Alcohol Problem Interval History: Patient seen and evaluated at bedside. No acute issues overnight. Feeling better this morning. Vomiting is improved. Continues to have significant diarrhea. He denies F/C, chest pain, sob, abdominal pain, N/V. Review of Systems: Other than patient's chronic conditions and those complaints in the history above, the rest of the 10 systems review were done and were negative. Objective: Vitals: 04/04/23 1436 04/04/23 1722 04/04/23 2346 04/05/23 0527 BP: 136/87 132/88 (!) 133/96 BP Location: Right arm Right arm Patient Position: Lying Lying Pulse: 87 79 84 Resp: 16 18 18 Temp: 36.7 C (98 F) 36.6 C (97.8 F) 36.7 C (98 F) TempSrc: Temporal Temporal Temporal SpO2: 99% 99% 99% Weight: Height: 5' 10" (1.778 m) Physical Exam Constitutional: General: He is not in acute distress. HENT: Head: Normocephalic. Mouth/Throat: Mouth: Mucous membranes are moist. Eyes: Extraocular Movements: Extraocular movements intact. Pulmonary: Effort: Pulmonary effort is normal. Musculoskeletal: General: Normal range of motion. Skin: General: Skin is warm. Neurological: General: No focal deficit present. Mental Status: He is alert. Psychiatric: Mood and Affect: Mood normal. Lab Results Component Value Date WBC 2.5 (L) 04/02/2023 HGB 11.4 (L) 04/02/2023 HCT 31.7 (L) 04/02/2023 MCV 95.2 04/02/2023 PLT 93 (L) 04/02/2023 Lab Results Component Value Date NA 128 (L) 04/04/2023 K 3.6 04/04/2023 CL 99 04/04/2023 CO2 21 (L) 04/04/2023 BUN 7 (L) 04/04/2023 CREATININE 0.82 04/04/2023 GLUCOSE 188 (H) 04/04/2023 CALCIUM 8.3 (L) 04/04/2023 Additional results of the last 24 hours have been reviewed. This nurse to monitor patient throughout shift. Pt calm, cooperative, and friendly. Medication compliant throughout shift. Pt denies si/hi, a/v/t disturbances, and n/v. C/O diarrhea, headache, and anxiety. Pt uses call light appropriately. Pt encouraged to continue to notify staff of any needs/changes that arise. Pt verbalized understanding. Images from the original note were not included. Addiction Medicine Patient: Woody Ni Admit Date: 04/02/2023 Primary Care Physician: Jani Quezada History of Present Illness The patient continues to be monitored by chemical dependency services. He remains on phenobarbital for alcohol withdrawal syndrome. In meeting with the patient today, he was in excellent spirits. He did state that withdrawal symptomatology was significantly improved. Anxiety, sweats, tremors, restlessness abating. Appetite intact. Still ambulating slowly with the assistance of a cane. Social History Socioeconomic History Marital status: Spouse name: Not on file Number of children: Not on file Years of education: Not on file Highest education level: Not on file Occupational History Not on file Tobacco Use Smoking status: Every Day Types: Cigars Last attempt to quit: 1983 Years since quittin.4 Smokeless tobacco: Former Vaping Use Vaping Use: Every day Substances: CBD, canabis Devices: Disposable Substance and Sexual Activity Alcohol use: Yes Alcohol/week: 42.0 standard drinks of alcohol Types: 42 Cans of beer per week Comment: TALL BOY ARE DOUBLE BEERS 42 per week Drug use: Yes Types: Marijuana Comment: daily Sexual activity: Not on file Other Topics Concern Not on file Social History Narrative Not on file Social Determinants of Health Financial Resource Strain: Not on file Food Insecurity: Not on file Transportation Needs: No Transportation Needs (04/03/2023) PRAPARE - Transportation Lack of Transportation (Medical): No Lack of Transportation (Non-Medical): No Physical Activity: Inactive (04/03/2023) Exercise Vital Sign Days of Exercise per Week: 0 days Minutes of Exercise per Session: 0 min Stress: No Stress Concern Present (04/03/2023) [facility] [employer] - Occupational Stress Questionnaire Feeling of Stress : Not at all Social Connections: Not on file Intimate Partner Violence: Not At Risk (02/11/2023) Humiliation, Afraid, Rape, and Kick questionnaire Fear of Current or Ex-Partner: No Emotionally Abused: No Physically Abused: No Sexually Abused: No Housing Stability: Low Risk (04/03/2023) Housing Stability Vital Sign Unable to Pay for Housing in the Last Year: No Number of Places Lived in the Last Year: 1 Unstable Housing in the Last Year: No 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 Nausea and vomiting 12/22/22-12/26/22 admitted at [facility] Pain management Sleep apnea noncompliant with device Past Surgical History: Procedure Laterality Date BACK SURGERY x 2 CHOLECYSTECTOMY LAMINECTOMY LAP,CHOLECYSTECTOMY (HISTORICAL) N/A 01/05/2023 WISDOM TOOTH EXTRACTION Family History Problem Relation Name Age of Onset Depression Mother Depression Maternal Grandmother Labs Recent Results (from the past 48 hour(s)) CBC auto differential Collection Time: 04/02/23 4:42 PM Result Value Ref Range Auto WBC 2.5 (L) 3.6 - 10.7 10*3/uL RBC 3.33 (L) 4.40 - 5.90 10*6/uL Hemoglobin 11.4 (L) 13.0 - 18.0 g/dL Hematocrit 31.7 (L) 40.0 - 52.0 % MCV 95.2 80.0 - 98.0 fL MCH 34.2 (H) 26.0 - 34.0 pg MCHC 36.0 32.0 - 36.0 % RDW 13.0 11.5 - 14.5 % Platelets 93 (L) 140 - 440 10*3/uL MPV 9.0 7.4 - 12.4 fL Neutrophils Relative 66.2 40.0 - 80.0 % Lymphocytes Relative 28.7 20.0 - 40.0 % Monocytes Relative 4.3 2.0 - 10.0 % Eosinophils Relative 0.0 (L) 1.0 - 6.0 % Basophils Relative 0.0 0.0 - 2.0 % Immature Grans % 0.8 (H) <=0.0 % Neutrophils Absolute 1.7 (L) 1.8 - 7.0 10*3/uL Lymphocytes Absolute 0.7 (L) 1.0 - 4.3 10*3/uL Monocytes Absolute 0.1 0.0 - 0.8 10*3/uL Eosinophils Absolute 0.0 0.0 - 0.5 10*3/uL Basophils Absolute 0.0 0.0 - 0.2 10*3/uL Immature Grans Absolute 0.0 <=0.0 10*3/uL Comprehensive metabolic panel Collection Time: 04/02/23 4:42 PM Result Value Ref Range SODIUM 134 (L) 135 - 145 mmol/L POTASSIUM 4.3 3.5 - 5.1 mmol/L CHLORIDE 100 98 - 107 mmol/L CARBON DIOXIDE 18 (L) 22 - 30 mmol/L ANION GAP 16 (H) 3 - 13 mmol/L UREA NITROGEN 4 (L) 9 - 20 mg/dL CREATININE 0.86 0.66 - 1.25 mg/dL GLUCOSE 111 (H) 70 - 100 mg/dL CALCIUM 8.8 8.4 - 10.4 mg/dL AST (SGOT) 208 (H) 15 - 46 U/L ALT 89 (H) 0 - 49 U/L ALKALINE PHOSPHATASE 79 38 - 126 U/L ALBUMIN 4.3 3.5 - 5.0 g/dL BILIRUBIN, TOTAL 0.7 0.2 - 1.3 mg/dL TOTAL PROTEIN 7.3 6.3 - 8.2 g/dL eGFR >90.0 >60.0 mL/min/1.73m*2 Lipase Collection Time: 04/02/23 4:42 PM Result Value Ref Range LIPASE 365 (H) 23 - 300 U/L C-reactive protein Collection Time: 04/02/23 4:42 PM Result Value Ref Range C REACTIVE PROTEIN <5.0 <10.0 mg/L Ethanol Collection Time: 04/02/23 4:42 PM Result Value Ref Range ETHANOL IN SER/PLAS 0.352 (HH) 0.000 - 0.010 g/dL TSH Collection Time: 04/02/23 4:42 PM Result Value Ref Range THYROID STIMULATING HORMONE 0.787 0.465 - 4.680 uIU/mL Hemoglobin A1c Collection Time: 04/02/23 4:42 PM Result Value Ref Range HEMOGLOBIN A1C 4.7 <5.7 % ESTIMATED AVERAGE GLUCOSE 88 mg/dL Beta Hydroxybutyrate Collection Time: 04/02/23 4:42 PM Result Value Ref Range BETA HYDROXYBUTYRATE 5.35 (H) 0.20 - 2.81 mg/dL Complete Urinalysis Collection Time: 04/02/23 5:49 PM Result Value Ref Range Color, Urine Colorless Lt. Yellow Clarity, Urine Clear Clear pH, Urine 5.0 5.0 - 8.0 pH Leukocytes, Urine Negative Negative Emma/uL Nitrite, Urine Negative Negative Protein, Urine Negative Negative mg/dL Glucose, Urine Normal Normal (<70) mg/dL Bilirubin, Urine Negative Negative mg/dL Ketones, Urine Negative Negative mg/dL Urobilinogen, Urine Normal Normal (0-1) mg/dL Blood, Urine Negative Negative mg/dL SPECIFIC GRAVITY OF URINE (NUMERIC) 1.002 (L) 1.005 - 1.030 Drug screen panel, emergency Collection Time: 04/02/23 5:49 PM Result Value Ref Range AMPHETAMINE SCREEN Negative BARBITURATES SCREEN Positive BENZODIAZEPINE SCREEN Negative COCAINE METAB. SCREEN Negative METHADONE SCREEN Negative OPIATES SCREEN Negative OXYCODONE SCREEN Negative PHENCYCLIDINE SCREEN Negative SARS-CoV-2 Antigen Collection Time: 04/02/23 5:51 PM Specimen: Nasal; Swab Result Value Ref Range SARS-CoV-2 Antigen Negative Negative Blood gas, venous ([place]) Collection Time: 04/02/23 6:08 PM Result Value Ref Range pH 7.363 7.330 - 7.430 pCO2 32 (L) 40 - 55 mm(Hg) pO2 168 (H) 30 - 50 mm(Hg) BASE EXCESS -7.0 (L) -3.0 - 3.0 mmol/L HCO3 18.4 (L) 23.0 - 27.0 mmol/L TCO2 19.0 (L) 24.0 - 28.0 mmol/L O2 Saturation 99.0 (H) 60.0 - 80.0 % Source Of Oxygen Room Air Medications Home Meds: Prior to Admission medications Medication Sig Start Date End Date Taking? Authorizing Provider acetaminophen (Tylenol) 325 MG tablet every 4 hours as needed. Historical Provider, albuterol (2.5 MG/3ML) 0.083% nebulizer solution Inhale 2.5 mg. PRN Historical Provider, albuterol 108 (90 Base) MCG/ACT inhaler every 4 hours. Historical Provider, alendronate (Fosamax) 70 MG tablet Take 70 mg by mouth once a week. 05/19/17 Historical Provider, amLODIPine (Norvasc) 2.5 MG tablet Take 2.5 mg by mouth in the morning. 05/27/17 Historical Provider, Bioflavonoid Products (Alana-C) tablet Every 24 hours. Historical Provider, calcium carbonate (Tums) 500 MG chewable tablet Chew 1 tablet (500 mg) daily. Do not start before February 15, 2023. 02/15/23 02/15/24 Kacie Benz, cyanocobalamin (Vitamin B-12) 1000 MCG/ML injection 1 mL intramuscularly once a month Historical Provider, dicyclomine (Bentyl) 20 MG tablet Take 1 tablet (20 mg) by mouth in the morning and 1 tablet (20 mg) at noon and 1 tablet (20 mg) in the evening. Take before meals. 11/07/22 11/07/23 Beryl Holder PA-C fluticasone (Flonase) 50 MCG/ACT nasal spray Administer 1 spray into affected nostril(s). 04/27/17 Historical Provider, ipratropium (Atrovent) 0.02 % nebulizer solution PRN 05/04/17 Historical Provider, ipratropium-albuterol (Duo-Neb) 0.5-2.5 mg/3 mL nebulizer solution every 6 hours. Historical Provider, ketoconazole (NIZOral) 2 % shampoo EVERY THREE DAYS 11/18/19 Historical ProviderMD levothyroxine (Synthroid, Levoxyl) 50 MCG tablet TAKE 1 TABLET BY MOUTH DAILY 06/06/22 06/06/23 Nicolas Qiu losartan (Cozaar) 100 MG tablet Take 1 tablet (100 mg) by mouth daily. Do not start before February 15, 2023. 02/15/23 02/15/24 Kacie Benz DO niacin 100 MG tablet Every 24 hours. Historical Provider, nitroglycerin (Nitrostat) 0.4 MG SL tablet 1 tab(s) sublingually every 5 minutes x 3 doses prn Historical Provider, ondansetron (Zofran) 4 MG tablet Every 24 hours. Historical Provider, oxyCODONE (Roxicodone) 10 MG immediate release tablet Take 10 mg by mouth in the morning and 10 mg at noon and 10 mg in the evening and 10 mg before bedtime. 05/29/17 Historical ProviderMD pantoprazole (ProtoNix) 40 MG EC tablet Take 40 mg by mouth daily. Historical Provider, potassium chloride ER (Micro-K) 10 MEQ ER capsule Take 10 mEq by mouth in the morning. 03/30/17 Historical ProviderMD sodium chloride 1 g tablet Take 1 tablet (1 g) by mouth in the morning and 1 tablet (1 g) in the evening. Take with meals. 02/14/23 02/14/24 Kacie Benz DO tamsulosin (Flomax) 0.4 MG 24 hr capsule Take 0.4 mg by mouth daily. 01/27/22 Historical ProviderMD Inpatient Scheduled Meds: amLODIPine, 2.5 mg, Oral, Daily cyanocobalamin, 100 mcg, Oral, Daily dicyclomine, 20 mg, Oral, TID AC folic acid, 1 mg, Oral, Daily levothyroxine, 50 mcg, Oral, qAM AC losartan, 100 mg, Oral, Daily pantoprazole, 40 mg, Oral, Daily PHENobarbital, 64.8 mg, Oral, q6h potassium chloride CR, 10 mEq, Oral, Daily sodium chloride, 1 g, Oral, BID WC tamsulosin, 0.4 mg, Oral, Daily therapeutic multivitamin-minerals, 1 tablet, Oral, Daily Thiamine Mononitrate, 100 mg, Oral, Daily Inpatient PRN Meds: PRN medications: acetaminophen, albuterol, albuterol, aluminum & magnesium hydroxide-simethicone, hydrOXYzine pamoate, loperamide, nitroglycerin, ondansetron ODT, traZODone Exam Vitals: 04/04/23 0637 04/04/23 0842 04/04/23 1143 04/04/23 1436 BP: (!) 136/101 116/84 (!) 155/95 BP Location: Right arm Patient Position: Lying Pulse: 91 108 83 Resp: 16 16 16 Temp: 36.6 C (97.8 F) 36.8 C (98.3 F) 36.9 C (98.5 F) TempSrc: Temporal Temporal Temporal SpO2: 98% 98% 99% Weight: Height: 1.778 m (5' 10") Physical Exam Patient is slightly flushed but is not diaphoretic. Mild tremors noted. Appears fatigued, slightly sedated. Slow to respond to questions, but pleasant, cooperative. Oriented x4. No auditory, tactile or visual disturbances Assessment & Plan At this point in time we will continue phenobarbital taper for alcohol withdrawal syndrome and will investigate counseling options. Full medical work-up in place for neuropathy, 60 pound weight loss. Lab studies have been ordered. FLAVIO SHERMAN MD Addiction Medicine 04/04/2023 at 3:12 PM -35- minutes were spent reviewing the patient's records, evaluating the patient, entering orders, coordinating care with the treatment team, and creating a progress note. Narrative portions of the note are written utilizing [employer] software. While every effort is made to dictate clearly and proofread, errors in the dictation may still occur. If there are any questions regarding the dictation please do not hesitate to contact the author. Pt medication compliant throughout shift. Calm and cooperative. Denies si/hi. Pt given call light within reach and encouraged to notify staff if any needs/changes arise. Pt demonstrated throughout night knowledge of use. Pt arrived to the unit via wheelchair. Pt is cooperative with admission process. Pt states he has been drinking for 47 years. States he drinks a 12 pk of beer daily. Longest period of sobriety is 2 yrs approx 5-6 years ago. He lives with his long time girlfriend and has been on disability for 20+ years. He states he occasionally smokes marijuana to help with his nausea. Pt states he has lost >60 lbs in 5 mo due to n/v. He is up with a cane and can walk short distances but states he doesn't leave the house often. He denies problems caused by alcohol outside of health problems. Patient presented to the [facility] ER seeking alcohol detox. Alcohol use x40 plus years. Told by MD that he needs detox due to this liver issues and overall health. Was not interested in quitting or detox as recently as 03/10/23. Drinks 12 [place] Lights per day with last use 15 minutes [employer]. Told another nurse that he drinks 42 cans of beer per week. Also says in his history that he drinks [employer] which contains two normal sized beers. ETOH 0.352. No withdrawal symptoms. Given Phenobarbital 220 mg IV. Extensive medical history. Hx of depression and anxiety. Denies SI or HI. Denies plan or intent. Longest period sober was 2 years during which time he claimed to have been taking better care of himself (walking, drinking water, etc.) and talking to family. Served 4 years in the [employer]. Strengths include health insurance coverage. Barriers include extensive medical history and long history of alcohol use. Recommend that patient be admitted to [address] for inpatient detox. documented in this encounter [facility] 04-07-2023 Nurse Note Patient alert and oreinted during morning assessment. Patient denied having any SI/HI/AVH. Patient complains of 10/10 headache, and nausea. Patient given PRN tylenol at 0923, PRN Zofran at 0924 and PRN Phenergan injection at 0930. Patient encouraged to notify nursing staff of any needs. Will monitor for patient safety. [facility] 04-07-2023 Plan of care note Problem: Sensory Perceptual Alteration as Evidenced by Goal: Cooperates with admission process Outcome: Adequate for Discharge Goal: Patient/Family participate in treatment and discharge plans Outcome: Adequate for Discharge Goal: Patient/Family verbalizes awareness of resources Outcome: Adequate for Discharge Goal: Participates in unit activities Outcome: Adequate for Discharge Goal: Discusses signs/symptoms of illness/treatment options Outcome: Adequate for Discharge Goal: Initiates reality-based interactions Outcome: Adequate for Discharge Goal: Able to discuss content of hallucinations/delusions Outcome: Adequate for Discharge Goal: Notifies staff when experiencing hallucinations/delusions Outcome: Adequate for Discharge Goal: Verbalizes reduction in hallucinations/delusions Outcome: Adequate for Discharge Goal: Will not act on psychotic perception Outcome: Adequate for Discharge Goal: Understands least restrictive measures Outcome: Adequate for Discharge Goal: Free from restraint events Outcome: Adequate for Discharge Problem: Problem Interventions Goal: Dietary Supplements Outcome: Adequate for Discharge [facility] 04-06-2023 Note Peripheral smear sli de prepared for evaluation. [employer] Work Phone: 04-06-2023 Note Peripheral smear sli de prepared for evaluation. [facility] Work Phone: 04-06-2023 Group counseling note Department: [facility] ACTIVITIES THERAPY Group Topic: Other Group Date: 04/06/2023 Start Time: 1108 End Time: 1203 Facilitators: Dee Blas Number of Participants: 7 Group Name: Recreation Therapy Treatment Modality: Recreation Therapy Purpose: enhance coping skills, encourage positivity Summary: Gratitude - Patients are given the opportunity to explore positives in their life. Patients explore challenges they face in recognizing gratitude during a difficult time. Name: Woody Ni Date of : 1960 MR: [id number] Appearance: Good eye contact Affect: Appropriate Behavior: Pleasant Alertness: Alert Speech: Appropriate Level/Quality of Participation: engaged Interactions with others: supportive Interventions utilized were Building rapport and engagement and Empathic listening Patient's Response to Intervention: Patient participated appropriately in intervention. Patient engaged in discussion and was able to identify multiple areas of gratitude. Patient spoke about the impact of their addiction on their lives, as well as, plans to improve their lives. Patient had good eye contact with interactions and was supportive toward peers. Continue to encourage group participation as appropriate. Patients Problems: Patient Active Problem List Diagnosis Osteoarthritis of spine with radiculopathy, lumbar region Essential hypertension Hyponatremia Diabetes (HCC) Hypovolemia Cirrhosis (HCC) Chronic alcoholic hepatitis Asthma Severe malnutrition (CMS/HCC) (HCC) Thyroid disease SHAYLA (obstructive sleep apnea) Lumbar stenosis Postural dizziness with presyncope HLD (hyperlipidemia) Hepatitis Intractable nausea and vomiting Chronic pain syndrome Complication of surgical procedure Intercostal pain Low back pain Mild recurrent major depression (HCC) Myalgia Right hip pain Shoulder joint pain Acute kidney injury (CMS/HCC) (HCC) DENNYS (acute kidney injury) (CMS/HCC) (HCC) Gallbladder sludge RUQ pain Acute on chronic cholecystitis 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) Severe alcohol use disorder (HCC) Alcohol withdrawal syndrome without complication (HCC) T [facility] 04-06-2023 Plan of care note The patient is Moderately Stable - Low risk of patient condition declining or worsening The patient's goals for the shift include rest The clinical goals for the shift include safety Problem: Sensory Perceptual Alteration as Evidenced by Goal: Cooperates with admission process Outcome: Progressing Goal: Patient/Family participate in treatment and discharge plans Outcome: Progressing Goal: Patient/Family verbalizes awareness of resources Outcome: Progressing Goal: Participates in unit activities Outcome: Progressing Goal: Discusses signs/symptoms of illness/treatment options Outcome: Progressing Goal: Initiates reality-based interactions Outcome: Progressing Goal: Able to discuss content of hallucinations/delusions Outcome: Progressing Goal: Notifies staff when experiencing hallucinations/delusions Outcome: Progressing Goal: Verbalizes reduction in hallucinations/delusions Outcome: Progressing Goal: Will not act on psychotic perception Outcome: Progressing Goal: Understands least restrictive measures Outcome: Progressing Goal: Free from restraint events Outcome: Progressing Problem: Problem Interventions Goal: Dietary Supplements Outcome: Progressing [facility] 04-06-2023 Nurse Note Pt alert and oriented, med compliant, pt states slept poorly through the night, pt denies SI/HI/AVH, pt complains of nausea, vomiting and diarrhea through the night. Pt complains of back pain, tylenol helped and zofran was helpful with nausea and imodium helped for now with diarrhea, will reevaluate. Pt up in group room and social with peers. Pt unable to keep any food down besides chicken broth and ensure at times. 1239- Pt complains of diarrhea, nausea, and back pain, and anxiety pt medicated with tylenol, zofran and imodium, vistaril 1335- pt states tylenol, zofran, vistaril and imodium were effective. 1557- pt complains of diarrhea, medicated with imodium 1629- Pt medicated with phenergan for vomiting and nausea. 1650- Pt states phenergan was effective Pt encouraged to update staff with any change in condition. Will monitor pt for safety. [facility] 04-06-2023 Telephone encounter Note Pt is recently at hospital. Will send out letter to his mailing address. Thank you [facility] 04-06-2023 Miscellaneous Notes Pt is recently at hospital. Will send out letter to his mailing address. Thank you Please contact patient for hospital follow up for chronic liver disease, history of ETOH abuse and chronic diarrhea documented in this encounter [facility] 04-05-2023 Plan of care note Problem: Sensory Perceptual Alteration as Evidenced by Goal: Cooperates with admission process Outcome: Adequate for Discharge Goal: Patient/Family participate in treatment and discharge plans Outcome: Adequate for Discharge Goal: Patient/Family verbalizes awareness of resources Outcome: Adequate for Discharge Goal: Participates in unit activities Outcome: Adequate for Discharge Goal: Discusses signs/symptoms of illness/treatment options Outcome: Adequate for Discharge Goal: Initiates reality-based interactions Outcome: Adequate for Discharge Goal: Able to discuss content of hallucinations/delusions Outcome: Adequate for Discharge Goal: Notifies staff when experiencing hallucinations/delusions Outcome: Adequate for Discharge Goal: Verbalizes reduction in hallucinations/delusions Outcome: Adequate for Discharge Goal: Will not act on psychotic perception Outcome: Adequate for Discharge Goal: Understands least restrictive measures Outcome: Adequate for Discharge Goal: Free from restraint events Outcome: Adequate for Discharge Problem: Problem Interventions Goal: Dietary Supplements Outcome: Adequate for Discharge T [facility] 04-05-2023 Telephone encounter Note Please contact patient for hospital follow up for chronic liver disease, history of ETOH abuse and chronic diarrhea T [facility] [employer] Work Phone: 04-05-2023 Consult note Associated Order (s): IP CONSULT TO GI Images from the original note were not included. Department of Internal Medicine Gastroenterology Attending Consult Note Reason for Consult: The patient was seen in consultation at the request of Inder Stein re: Daily non-bloody vomiting, 10-15 episodes of diarrhea daily x 1 year CHIEF COMPLAINT: diarrhea History Obtained From: patient, chart HISTORY OF PRESENT ILLNESS: The patient is a 63 y.o. male with significant past medical history of Alcohol abuse, hypertension, hypothyroidism,GERD, BPH, neuropathy who presents with diarrhea. Patient endorses chronic diarrhea x 1 year at least. 10 Bms a day. Associated with urgency and incontinence. Not associated with abdominal pain, hematochezia or melena. Does not know if he has ever had a colonoscopy. Had EGD in the past. Denies n/v currently. No vomiting for three days. Denies ever having hematemesis. Previously followed with Dr. Reyes. Had willow a few months ago and was told he had cirrhosis. Has been drinking alcohol for 46 years. Got worse in the in late 70's early 80's. Lab Results Component Value Date INR 1.1 02/10/2023 INR 1.1 12/29/2022 INR 1.2 (H) 12/25/2022 PROTIME 12.3 (H) 02/10/2023 PROTIME 11.5 12/29/2022 PROTIME 12.6 (H) 12/25/2022 Allergies: Allopurinol, Codeine, and Penicillin g Current Medications: Current Facility-Administered Medications: acetaminophen (Tylenol) tablet 650 mg, 650 mg, Oral, q6h PRN, Maxwell Hinson MD, 650 mg at 04/04/23 2325 albuterol (2.5 MG/3ML) 0.083% nebulizer solution 2.5 mg, 2.5 mg, Nebulization, Daily PRN, Maxwell Hinson MD albuterol 108 (90 Base) MCG/ACT inhaler 1 puff, 1 puff, Inhalation, q6h PRN, Maxwell Hinson MD, 1 puff at 04/04/23 0848 aluminum & magnesium hydroxide-simethicone (Mylanta) 200-200-20 MG/5ML oral suspension 10 mL, 10 mL, Oral, TID PRN, Maxwell Hinson MD, 10 mL at 04/05/23 0930 amLODIPine (Norvasc) tablet 2.5 mg, 2.5 mg, Oral, Daily, Maxwell Hinson MD, 2.5 mg at 04/05/23 0815 cyanocobalamin (Vitamin B-12) tablet 100 mcg, 100 mcg, Oral, Daily, Flavio Sherman MD, 100 mcg at 04/05/23 0814 dicyclomine (Bentyl) tablet 20 mg, 20 mg, Oral, TID AC, Flavio Sherman MD, 20 mg at 04/05/23 0654 folic acid (Folvite) tablet 1 mg, 1 mg, Oral, Daily, Flavio Sherman MD, 1 mg at 04/05/23 08 hydrOXYzine pamoate (Vistaril) capsule 50 mg, 50 mg, Oral, q6h PRN, Maxwell Hinson MD, 50 mg at 04/05/23 0049 levothyroxine (Synthroid, Levoxyl) tablet 50 mcg, 50 mcg, Oral, qAM AC, Maxwell Hinson MD, 50 mcg at 04/05/23 06 loperamide (Imodium) capsule 2 mg, 2 mg, Oral, 4x daily PRN, Maxwell Hinson MD, 2 mg at 04/04/23 2325 losartan (Cozaar) tablet 100 mg, 100 mg, Oral, Daily, Maxwell Hinson MD, 100 mg at 04/05/23813 nitroglycerin (Nitrostat) SL tablet 0.4 mg, 0.4 mg, SubLINGual, q5 min PRN, Maxwell Hinson MD ondansetron ODT (Zofran-ODT) disintegrating tablet 4 mg, 4 mg, Oral, q6h PRN, Maxwell Hinson MD pantoprazole (ProtoNix) EC tablet 40 mg, 40 mg, Oral, Daily, Maxwell Hinson MD, 40 mg at 04/05/23 08 PHENobarbital (Luminal) tablet 64.8 mg, 64.8 mg, Oral, q6h, Flavio Sherman MD, 64.8 mg at 04/05/23 06 potassium chloride CR (Klor-Con M10) ER tablet 10 mEq, 10 mEq, Oral, Daily, Flavio Sherman MD, 10 mEq at 04/05/23813 sodium chloride tablet 1 g, 1 g, Oral, BID WC, Flavio Sherman MD, 1 g at 04/05/23 08 tamsulosin (Flomax) 24 hr capsule 0.4 mg, 0.4 mg, Oral, Daily, Maxwell Hinson MD, 0.4 mg at 04/05/23 08 therapeutic multivitamin-minerals (Theragran-M) tablet, 1 tablet, Oral, Daily, Maxwell Hinson MD, 1 tablet at 04/05/23813 Thiamine Mononitrate (Vitamin B1) tablet 100 mg, 100 mg, Oral, Daily, Flavio Sherman MD, 100 mg at 04/05/23 08 traZODone (Desyrel) tablet 100 mg, 100 mg, Oral, Nightly PRN, Maxwell Hinson MD, 100 mg at 04/04/232111 Past Medical History: Active Ambulatory Problems Diagnosis Date Noted Osteoarthritis of spine with radiculopathy, lumbar region 03/12/2018 Essential hypertension 08/26/2017 Hyponatremia 06/03/2022 Diabetes (HCC) 08/26/2017 Hypovolemia 06/04/2022 Cirrhosis (HCC) 08/26/2017 Chronic alcoholic hepatitis 06/04/2022 Asthma 08/26/2017 Severe malnutrition (CMS/HCC) (HCC) 04/04/2023 Thyroid disease 08/26/2017 SHAYLA (obstructive sleep apnea) 08/26/2017 Lumbar stenosis 06/10/2017 Postural dizziness with presyncope 06/04/2022 HLD (hyperlipidemia) 08/26/2017 Hepatitis 08/26/2017 Intractable nausea and vomiting 06/05/2022 Chronic pain syndrome 11/06/2022 Complication of surgical procedure 11/06/2022 Intercostal pain 11/06/2022 Low back pain 11/06/2022 Mild recurrent major depression (HCC) 11/06/2022 Myalgia 11/06/2022 Right hip pain 11/06/2022 Shoulder joint pain 11/06/2022 Acute kidney injury (CMS/HCC) (HCC) 12/22/2022 DENNYS (acute kidney injury) (CMS/HCC) (HCC) 12/22/2022 Gallbladder sludge 01/05/2023 RUQ pain 01/05/2023 Acute on chronic cholecystitis 01/05/2023 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) 01/05/2023 Resolved Ambulatory Problems Diagnosis Date Noted No Resolved Ambulatory Problems Past Medical History: Diagnosis Date Acid reflux Alcoholism (CMS/HCC) (HCC) Anxiety Back pain Dehydration Depression Diabetes mellitus (HCC) Gout Hepatitis C Hypertension 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 Nausea and vomiting Pain management Sleep apnea Past Surgical History: Social History Socioeconomic History Marital status: Spouse name: Not on file Number of children: Not on file Years of education: Not on file Highest education level: Not on file Occupational History Not on file Tobacco Use Smoking status: Every Day Types: Cigars Last attempt to quit: 1983 Years since quittin.4 Smokeless tobacco: Former Vaping Use Vaping Use: Every day Substances: CBD, canabis Devices: Disposable Substance and Sexual Activity Alcohol use: Yes Alcohol/week: 42.0 standard drinks of alcohol Types: 42 Cans of beer per week Comment: TALL BOY ARE DOUBLE BEERS 42 per week Drug use: Yes Types: Marijuana Comment: daily Sexual activity: Not on file Other Topics Concern Not on file Social History Narrative Not on file Social Determinants of Health Financial Resource Strain: Not on file Food Insecurity: Not on file Transportation Needs: No Transportation Needs (04/03/2023) PRAPARE - Transportation Lack of Transportation (Medical): No Lack of Transportation (Non-Medical): No Physical Activity: Inactive (04/03/2023) Exercise Vital Sign Days of Exercise per Week: 0 days Minutes of Exercise per Session: 0 min Stress: No Stress Concern Present (04/03/2023) [employer] - Occupational Stress Questionnaire Feeling of Stress : Not at all Social Connections: Not on file Intimate Partner Violence: Not At Risk (02/11/2023) Humiliation, Afraid, Rape, and Kick questionnaire Fear of Current or Ex-Partner: No Emotionally Abused: No Physically Abused: No Sexually Abused: No Housing Stability: Low Risk (04/03/2023) Housing Stability Vital Sign Unable to Pay for Housing in the Last Year: No Number of Places Lived in the Last Year: 1 Unstable Housing in the Last Year: No Family History: Family History Problem Relation Name Age of Onset Depression Mother Depression Maternal Grandmother No family history colon or stomach cancer. Social History: TOBACCO: reports that he has been smoking cigars. He has quit using smokeless tobacco. ETOH: reports current alcohol use of about 42.0 standard drinks of alcohol per week. DRUGS: reports current drug use. Drug: Marijuana. 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 Normal appetite and weight. No GRANADOS, visual disturbance, eye pain, jaundice, sore throat or mouth ulcers. No skin rash or itching. No CP, SOB, TABOR, cough or wheeze. No urinary frequency, urgency, hematuria, or dysuria. No myalgia, arthralgia, or joint swelling. No weakness, numbness, or confusion. GI per HPI. No polyuria, polydipsia, heat or cold intolerance. PHYSICAL EXAM: VS: BP 110/74 Pulse 96 Temp 36.2 C (97.2 F) (Temporal) Resp 16 Ht 5' 10" (1.778 m) Wt 160 lb (72.6 kg) SpO2 100% BMI 22.96 kg/m Body mass index is 22.96 kg/m . Constitutional: No acute distress. Well-nourished. Well hydrated Head/Eyes: Pupils are equal and round; Conjunctiva are not injected; Sclera are non-icteric. ENT: Ears/nose without external abnormalities. Oral mucosa is pink and moist. Neck: supple Respiratory: Clear to auscultation bilaterally without any added sounds. Effort is normal Heart: Regular, Normal S1 and S2. No murmur; No added sounds. Abdomen: Normal BS, soft, non-tender, non-distended; no hepatomegaly. Extremities/Skin: No LE edema; Skin warm to touch and well perfused. Musculoskeletal: AROM all extremities Psychiatric: AAO x 3, answers appropriately, normal mood, normal affect. Non-focal. DATA: Recent blood work and relevant radiologic and endoscopic studies were reviewed and discussed with the patient. CBC: Recent Labs 04/02/23 1642 WBC 2.5* RBC 3.33* HGB 11.4* HCT 31.7* MCV 95.2 MCH 34.2* MCHC 36.0 RDW 13.0 PLT 93* MPV 9.0 CMP: Recent Labs 04/02/23 1642 04/04/23 1445 NA 134* 128* K 4.3 3.6 CL 100 99 CO2 18* 21* BUN 4* 7* CREATININE 0.86 0.82 GLUCOSE 111* 188* CALCIUM 8.8 8.3* PROT 7.3 -- BILITOT 0.7 -- ALKPHOS 79 -- AST 208* -- ALT 89* -- Lab Results Component Value Date HEPCAB Detected (A) 04/04/2023 Lab Results Component Value Date LIPASE 365 (H) 04/02/2023 Lab Results Component Value Date CRP <5.0 04/02/2023 PT/INR: No results for input(s): INR in the last 72 hours. Exam Date/Time: 04/02/2023 17:47 Procedure: US ABDOMEN COMPLETE Ordering Provider: BERMUDEZ NISHIT Reason For Exam: Evaluate aorta, right upper quadrant, kidneys. Abdominal pain COMPLETE ULTRASOUND OF THE ABDOMEN CLINICAL INDICATION: Evaluate aorta, right upper quadrant, kidneys. Abdominal pain TECHNIQUE: Real-time ultrasound of the abdomen. COMPARISON: 02/12/2023 FINDINGS: Liver shows diffuse hepatic steatosis. No focal lesion seen. No biliary tree dilatation. Gallbladder surgically absent. Common bile duct is 8.5 mm. Pancreas poorly seen secondary to overlying bowel gas. Normal kidneys measuring 11.0 x 5.2 x 6.4 cm on the right and 11.6 x 5.5 x 4.6 cm on the left. Spleen measures 9.0 x 5.1 x 7.7 cm and shows no focal lesion though evaluation is limited secondary to positioning. Visualized portions of aorta and IVC unremarkable. Proximal aorta difficult to visualize secondary to bowel gas. IMPRESSION: 1. Diffuse hepatic steatosis. No acute finding. Report Dictated on Electronically Signed By: Ruperto Wheeler Electronically Signed Date/Time: 04/02/2023 5:54 PM EDT Exam Date/Time: 02/12/2023 08:56 Procedure: US ABDOMEN COMPLETE Ordering Provider: CALLAWAY JONATHAN Reason For Exam: Epigastric pain EXAMINATION: Complete abdominal ultrasound. EXAM DATE & TIME: 02/12/2023 8:56 AM EDT INDICATION: Epigastric pain ADDITIONAL INFORMATION: 63-year-old male with epigastric pain presents for evaluation COMPARISON: Gallbladder ultrasound dated 08/28/[address] abdomen pelvis dated 12/22/2022 LIMITATIONS: As below TECHNIQUE: Ultrasound real-time scan with image documentation of the abdominal contents was performed. Color Doppler imaging was also employed. FINDINGS: LIVER Echogenicity: There is increased hepatic parenchymal echogenicity and coarsening of the hepatic parenchymal echotexture. Surface nodularity: Not visualized. Masses (size and location): None. GALLBLADDER The gallbladder is surgically absent. Pericholecystic fluid: None. Sonographic Ortiz's sign: Negative. BILE DUCTS Intrahepatic ducts: No biliary dilation Common bile duct: Normal caliber. Diameter: 5 mm PANCREAS The imaged portion of the pancreatic head is unremarkable. Visualization of the body and tail is limited due to overlying bowel gas artifact. RIGHT KIDNEY Size: 10.6 x 5.4 x 5.5 cm Renal cortex: There is thinning of the renal cortex. Hydronephrosis: None. Calculi, cysts or masses: None. LEFT KIDNEY Size: 11.2 x 5.6 x 6.1 cm Renal cortex: There is thinning of the renal cortex. Hydronephrosis: None. Calculi, cysts or masses: None. SPLEEN Size: 11.5 x 6.0 x 6.1 cm Parenchyma: Unremarkable. VESSELS Aorta: Visualized portions are unremarkable. IVC: Visualized portions are unremarkable. OTHER FINDINGS None. IMPRESSION: 1. No acute sonographic abnormality identified. 2. Hepatic steatosis. 3. Thinning of the renal cortex, which could relate to medical renal disease. Exam Date/Time: 12/22/2022 19:41 Procedure: CT ABDOMEN PELVIS WO IV CONTRAST Ordering Provider: MARIN MATTHEW Reason For Exam: Nausea/vomiting CT ABDOMEN AND PELVIS WITHOUT IV CONTRAST CLINICAL INDICATION: Nausea and vomiting TECHNIQUE: Multidetector spiral transaxial sequence was performed through the abdomen and pelvis. Images were reconstructed at 3 mm slice width at 3 mm interval. Dose reduction was employed with automated exposure control. COMPARISON:05/15/2022 CT abdomen and pelvis FINDINGS: Exam quality: This examination is limited for the evaluation of solid organs and vascular structures due to the lack of intravenous contrast. Lower chest: Mild bibasilar atelectasis without evidence of pleural effusion or focal consolidation. The heart is normal in size without evidence of pericardial effusion. The distal esophagus is unremarkable. Liver: The liver is normal in size without evidence of focal liver lesion. Biliary tree: Intrahepatic and extrahepatic ducts are nondilated. Gallbladder: The gallbladder is nondistended and without evidence of radiopaque stones. Pancreas: The pancreas appears unremarkable without evidence of ductal dilatation or mass. Spleen: The spleen is enlarged measuring 14 cm in length. Adrenals: Bilateral adrenal glands appear normal. Kidneys: The bilateral kidneys are normal in size. There are two 3 mm nonobstructing calculi in the superior pole of the right kidney. No evidence of hydroureteronephrosis or ureterolithiasis. Bladder: The bladder is decompressed limiting evaluation. Pelvic organs/viscera: No mass identified Bowel: The stomach is unremarkable. Questionable circumferential wall thickening of the rectum. Otherwise the visualized bowel is unremarkable without evidence of wall thickening or dilatation. Retroperitoneal/mesenteric lymphadenopathy: There is no free fluid, loculated fluid collection, or free air. No evidence of abdominal pelvic lymphadenopathy. Aorta: There is no aneurysmal dilatation of the abdominal aorta. Moderate atherosclerotic calcifications of the abdominal aorta and its branches. Abdominal wall: Fat-containing left inguinal hernia. Bones: Moderate multilevel discogenic degenerative changes. Stable retrolisthesis at L2-L3. IMPRESSION: Questionable circumferential wall thickening of the rectum, please correlate with clinical concern for colitis. Further evaluation with direct visualization may be obtained as indicated. Splenomegaly. Nonobstructing right renal calculi. IMPRESSION/RECOMMENDATIONS: Chronic n/v- resolved x 3 days. Ultrasound/CT steatosis; no obstructive process; no evidence of pancreatitis Chronic liver disease- intraop liver biosy 01/05/2023 consistent with cirrhosis; platlets 93; INR 1.1 Chronic diarrhea- GI panel negative; fecal elastase pending; CRP normal Hepatitis C antibody positive- viral load pending --continue Pantoprazole --continue supportive management --There is no evidence for urgent need for EGD/Colon --recommend outpatient EGD and colonoscopy; variceal screening, colon cancer screening; rule out IBD/microscopic colitis --Hepatitis C tx as indicated- recommend consult to ID if positive --await fecal elastase- consider need for PERT --the GI service will sign off; please reconsult if needed ATTENDING NOTE: Pt is being followed by inpatient GI service for: Nausea, vomiting, diarrhea Above note has also been edited to reflect my additional findings and recommendations Family present at bedside none Brief Exam Gen: comfortable, NAD HEENT: anicteric sclera Chest: normal respiratory effort Abd: benign Ext: no c/c/e Neuro: nonfocal Labs/Studies reviewed in Epic GI PCR negative ASSESSMENT/PLAN: Nausea/Vomiting - now resolved Chronic Diarrhea GERD H/O EGD - done by Dr. Callaway for evaluation of n/v - see above details H/O cholecystectomy H/O liver biopsy 12/2022 during cholecystectomy Cirrhosis HCV Ab+ Alcohol withdrawal --Continue supportive care, antiemetics prn --Advance diet as tolerated --Consider Imodium prn or Cholestyramine --Follow-up pending stool studies and pending labs --Additional assessment and plan as noted above --GI inpatient service will follow peripherally and sign off at this time, please call if new issues/questions arise. --Recommend patient arrange for follow-up in outpatient GI clinic (with his established outpatient Lpn Rn Dr. Reyes) upon discharge from hospital. ZACK VALDES MD [employer] Work Phone: 04-05-2023 Consult note Associated Order (s): IP CONSULT TO GI Images from the original note were not included. Department of Internal Medicine Gastroenterology Attending Consult Note Reason for Consult: The patient was seen in consultation at the request of Inder Stein re: Daily non-bloody vomiting, 10-15 episodes of diarrhea daily x 1 year CHIEF COMPLAINT: diarrhea History Obtained From: patient, chart HISTORY OF PRESENT ILLNESS: The patient is a 63 y.o. male with significant past medical history of Alcohol abuse, hypertension, hypothyroidism,GERD, BPH, neuropathy who presents with diarrhea. Patient endorses chronic diarrhea x 1 year at least. 10 Bms a day. Associated with urgency and incontinence. Not associated with abdominal pain, hematochezia or melena. Does not know if he has ever had a colonoscopy. Had EGD in the past. Denies n/v currently. No vomiting for three days. Denies ever having hematemesis. Previously followed with Dr. Reyes. Had willow a few months ago and was told he had cirrhosis. Has been drinking alcohol for 46 years. Got worse in the in late 70's early 80's. Lab Results Component Value Date INR 1.1 02/10/2023 INR 1.1 12/29/2022 INR 1.2 (H) 12/25/2022 PROTIME 12.3 (H) 02/10/2023 PROTIME 11.5 12/29/2022 PROTIME 12.6 (H) 12/25/2022 Allergies: Allopurinol, Codeine, and Penicillin g Current Medications: Current Facility-Administered Medications: acetaminophen (Tylenol) tablet 650 mg, 650 mg, Oral, q6h PRN, Maxwell Hinson MD, 650 mg at 04/04/23 5996 albuterol (2.5 MG/3ML) 0.083% nebulizer solution 2.5 mg, 2.5 mg, Nebulization, Daily PRN, Maxwell Hinson MD albuterol 108 (90 Base) MCG/ACT inhaler 1 puff, 1 puff, Inhalation, q6h PRN, Maxwell Hinson MD, 1 puff at 04/04/23 0848 aluminum & magnesium hydroxide-simethicone (Mylanta) 200-200-20 MG/5ML oral suspension 10 mL, 10 mL, Oral, TID PRN, Maxwell Hinson MD, 10 mL at 04/05/23 0930 amLODIPine (Norvasc) tablet 2.5 mg, 2.5 mg, Oral, Daily, Maxwell Hinson MD, 2.5 mg at 04/05/23 0815 cyanocobalamin (Vitamin B-12) tablet 100 mcg, 100 mcg, Oral, Daily, Flavio Sherman MD, 100 mcg at 04/05/23 0814 dicyclomine (Bentyl) tablet 20 mg, 20 mg, Oral, TID AC, Flavio Sherman MD, 20 mg at 04/05/23 0654 folic acid (Folvite) tablet 1 mg, 1 mg, Oral, Daily, Flavio Sherman MD, 1 mg at 04/05/23 0814 hydrOXYzine pamoate (Vistaril) capsule 50 mg, 50 mg, Oral, q6h PRN, Maxwell Hinson MD, 50 mg at 04/05/23 0049 levothyroxine (Synthroid, Levoxyl) tablet 50 mcg, 50 mcg, Oral, qAM AC, Maxwell Hinson MD, 50 mcg at 04/05/23 0625 loperamide (Imodium) capsule 2 mg, 2 mg, Oral, 4x daily PRN, Maxwell Hinson MD, 2 mg at 04/04/23 2325 losartan (Cozaar) tablet 100 mg, 100 mg, Oral, Daily, Maxwell Hinson MD, 100 mg at 04/05/23 0814 nitroglycerin (Nitrostat) SL tablet 0.4 mg, 0.4 mg, SubLINGual, q5 min PRN, Maxwell Hinson MD ondansetron ODT (Zofran-ODT) disintegrating tablet 4 mg, 4 mg, Oral, q6h PRN, Maxwell Hinson MD pantoprazole (ProtoNix) EC tablet 40 mg, 40 mg, Oral, Daily, Maxwell Hinson MD, 40 mg at 04/05/23 08 PHENobarbital (Luminal) tablet 64.8 mg, 64.8 mg, Oral, q6h, Flavio Sherman MD, 64.8 mg at 04/05/23 0625 potassium chloride CR (Klor-Con M10) ER tablet 10 mEq, 10 mEq, Oral, Daily, Flavio Sherman MD, 10 mEq at 04/05/23 0814 sodium chloride tablet 1 g, 1 g, Oral, BID WC, Flavio Sherman MD, 1 g at 04/05/23 0815 tamsulosin (Flomax) 24 hr capsule 0.4 mg, 0.4 mg, Oral, Daily, Maxwell Hinson MD, 0.4 mg at 04/05/23 0814 therapeutic multivitamin-minerals (Theragran-M) tablet, 1 tablet, Oral, Daily, Maxwell Hinson MD, 1 tablet at 04/05/23 0814 Thiamine Mononitrate (Vitamin B1) tablet 100 mg, 100 mg, Oral, Daily, Flavio Sherman MD, 100 mg at 04/05/23 08 traZODone (Desyrel) tablet 100 mg, 100 mg, Oral, Nightly PRN, Maxwell Hinson MD, 100 mg at 04/04/232111 Past Medical History: Active Ambulatory Problems Diagnosis Date Noted Osteoarthritis of spine with radiculopathy, lumbar region 03/12/2018 Essential hypertension 08/26/2017 Hyponatremia 06/03/2022 Diabetes (HCC) 08/26/2017 Hypovolemia 06/04/2022 Cirrhosis (HCC) 08/26/2017 Chronic alcoholic hepatitis 06/04/2022 Asthma 08/26/2017 Severe malnutrition (CMS/HCC) (HCC) 04/04/2023 Thyroid disease 08/26/2017 SHAYLA (obstructive sleep apnea) 08/26/2017 Lumbar stenosis 06/10/2017 Postural dizziness with presyncope 06/04/2022 HLD (hyperlipidemia) 08/26/2017 Hepatitis 08/26/2017 Intractable nausea and vomiting 06/05/2022 Chronic pain syndrome 11/06/2022 Complication of surgical procedure 11/06/2022 Intercostal pain 11/06/2022 Low back pain 11/06/2022 Mild recurrent major depression (HCC) 11/06/2022 Myalgia 11/06/2022 Right hip pain 11/06/2022 Shoulder joint pain 11/06/2022 Acute kidney injury (CMS/HCC) (HCC) 12/22/2022 DENNYS (acute kidney injury) (CMS/HCC) (HCC) 12/22/2022 Gallbladder sludge 01/05/2023 RUQ pain 01/05/2023 Acute on chronic cholecystitis 01/05/2023 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) 01/05/2023 Resolved Ambulatory Problems Diagnosis Date Noted No Resolved Ambulatory Problems Past Medical History: Diagnosis Date Acid reflux Alcoholism (CMS/HCC) (HCC) Anxiety Back pain Dehydration Depression Diabetes mellitus (HCC) Gout Hepatitis C Hypertension 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 Nausea and vomiting Pain management Sleep apnea Past Surgical History: Social History Socioeconomic History Marital status: Spouse name: Not on file Number of children: Not on file Years of education: Not on file Highest education level: Not on file Occupational History Not on file Tobacco Use Smoking status: Every Day Types: Cigars Last attempt to quit: 1982 Years since quittin.4 Smokeless tobacco: Former Vaping Use Vaping Use: Every day Substances: CBD, canabis Devices: Disposable Substance and Sexual Activity Alcohol use: Yes Alcohol/week: 42.0 standard drinks of alcohol Types: 42 Cans of beer per week Comment: TALL BOY ARE DOUBLE BEERS 42 per week Drug use: Yes Types: Marijuana Comment: daily Sexual activity: Not on file Other Topics Concern Not on file Social History Narrative Not on file Social Determinants of Health Financial Resource Strain: Not on file Food Insecurity: Not on file Transportation Needs: No Transportation Needs (04/03/2023) PRAPARE - Transportation Lack of Transportation (Medical): No Lack of Transportation (Non-Medical): No Physical Activity: Inactive (04/03/2023) Exercise Vital Sign Days of Exercise per Week: 0 days Minutes of Exercise per Session: 0 min Stress: No Stress Concern Present (04/03/2023) [employer] - Occupational Stress Questionnaire Feeling of Stress : Not at all Social Connections: Not on file Intimate Partner Violence: Not At Risk (02/11/2023) Humiliation, Afraid, Rape, and Kick questionnaire Fear of Current or Ex-Partner: No Emotionally Abused: No Physically Abused: No Sexually Abused: No Housing Stability: Low Risk (04/03/2023) Housing Stability Vital Sign Unable to Pay for Housing in the Last Year: No Number of Places Lived in the Last Year: 1 Unstable Housing in the Last Year: No Family History: Family History Problem Relation Name Age of Onset Depression Mother Depression Maternal Grandmother No family history colon or stomach cancer. Social History: TOBACCO: reports that he has been smoking cigars. He has quit using smokeless tobacco. ETOH: reports current alcohol use of about 42.0 standard drinks of alcohol per week. DRUGS: reports current drug use. Drug: Marijuana. 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 Normal appetite and weight. No GRANADOS, visual disturbance, eye pain, jaundice, sore throat or mouth ulcers. No skin rash or itching. No CP, SOB, TABOR, cough or wheeze. No urinary frequency, urgency, hematuria, or dysuria. No myalgia, arthralgia, or joint swelling. No weakness, numbness, or confusion. GI per HPI. No polyuria, polydipsia, heat or cold intolerance. PHYSICAL EXAM: VS: BP 110/74 Pulse 96 Temp 36.2 C (97.2 F) (Temporal) Resp 16 Ht 5' 10" (1.778 m) Wt 160 lb (72.6 kg) SpO2 100% BMI 22.96 kg/m Body mass index is 22.96 kg/m . Constitutional: No acute distress. Well-nourished. Well hydrated Head/Eyes: Pupils are equal and round; Conjunctiva are not injected; Sclera are non-icteric. ENT: Ears/nose without external abnormalities. Oral mucosa is pink and moist. Neck: supple Respiratory: Clear to auscultation bilaterally without any added sounds. Effort is normal Heart: Regular, Normal S1 and S2. No murmur; No added sounds. Abdomen: Normal BS, soft, non-tender, non-distended; no hepatomegaly. Extremities/Skin: No LE edema; Skin warm to touch and well perfused. Musculoskeletal: AROM all extremities Psychiatric: AAO x 3, answers appropriately, normal mood, normal affect. Non-focal. DATA: Recent blood work and relevant radiologic and endoscopic studies were reviewed and discussed with the patient. CBC: Recent Labs 06/15/23 1642 WBC 2.5* RBC 3.33* HGB 11.4* HCT 31.7* MCV 95.2 MCH 34.2* MCHC 36.0 RDW 13.0 PLT 93* MPV 9.0 CMP: Recent Labs 04/02/23 1642 04/04/23 1445 NA 134* 128* K 4.3 3.6 CL 100 99 CO2 18* 21* BUN 4* 7* CREATININE 0.86 0.82 GLUCOSE 111* 188* CALCIUM 8.8 8.3* PROT 7.3 -- BILITOT 0.7 -- ALKPHOS 79 -- AST 208* -- ALT 89* -- Lab Results Component Value Date HEPCAB Detected (A) 04/04/2023 Lab Results Component Value Date LIPASE 365 (H) 04/02/2023 Lab Results Component Value Date CRP <5.0 04/02/2023 PT/INR: No results for input(s): INR in the last 72 hours. Exam Date/Time: 04/02/2023 17:47 Procedure: US ABDOMEN COMPLETE Ordering Provider: BERMUDEZ NISHIT Reason For Exam: Evaluate aorta, right upper quadrant, kidneys. Abdominal pain COMPLETE ULTRASOUND OF THE ABDOMEN CLINICAL INDICATION: Evaluate aorta, right upper quadrant, kidneys. Abdominal pain TECHNIQUE: Real-time ultrasound of the abdomen. COMPARISON: 02/12/2023 FINDINGS: Liver shows diffuse hepatic steatosis. No focal lesion seen. No biliary tree dilatation. Gallbladder surgically absent. Common bile duct is 8.5 mm. Pancreas poorly seen secondary to overlying bowel gas. Normal kidneys measuring 11.0 x 5.2 x 6.4 cm on the right and 11.6 x 5.5 x 4.6 cm on the left. Spleen measures 9.0 x 5.1 x 7.7 cm and shows no focal lesion though evaluation is limited secondary to positioning. Visualized portions of aorta and IVC unremarkable. Proximal aorta difficult to visualize secondary to bowel gas. IMPRESSION: 1. Diffuse hepatic steatosis. No acute finding. Report Dictated on Electronically Signed By: Ruperto Wheeler Electronically Signed Date/Time: 04/02/2023 5:54 PM EDT Exam Date/Time: 02/12/2023 08:56 Procedure: US ABDOMEN COMPLETE Ordering Provider: CALLAWAY JONATHAN Reason For Exam: Epigastric pain EXAMINATION: Complete abdominal ultrasound. EXAM DATE & TIME: 02/12/2023 8:56 AM EDT INDICATION: Epigastric pain ADDITIONAL INFORMATION: 63-year-old male with epigastric pain presents for evaluation COMPARISON: Gallbladder ultrasound dated 08/28/[address] abdomen pelvis dated 12/22/2022 LIMITATIONS: As below TECHNIQUE: Ultrasound real-time scan with image documentation of the abdominal contents was performed. Color Doppler imaging was also employed. FINDINGS: LIVER Echogenicity: There is increased hepatic parenchymal echogenicity and coarsening of the hepatic parenchymal echotexture. Surface nodularity: Not visualized. Masses (size and location): None. GALLBLADDER The gallbladder is surgically absent. Pericholecystic fluid: None. Sonographic Ortiz's sign: Negative. BILE DUCTS Intrahepatic ducts: No biliary dilation Common bile duct: Normal caliber. Diameter: 5 mm PANCREAS The imaged portion of the pancreatic head is unremarkable. Visualization of the body and tail is limited due to overlying bowel gas artifact. RIGHT KIDNEY Size: 10.6 x 5.4 x 5.5 cm Renal cortex: There is thinning of the renal cortex. Hydronephrosis: None. Calculi, cysts or masses: None. LEFT KIDNEY Size: 11.2 x 5.6 x 6.1 cm Renal cortex: There is thinning of the renal cortex. Hydronephrosis: None. Calculi, cysts or masses: None. SPLEEN Size: 11.5 x 6.0 x 6.1 cm Parenchyma: Unremarkable. VESSELS Aorta: Visualized portions are unremarkable. IVC: Visualized portions are unremarkable. OTHER FINDINGS None. IMPRESSION: 1. No acute sonographic abnormality identified. 2. Hepatic steatosis. 3. Thinning of the renal cortex, which could relate to medical renal disease. Exam Date/Time: 12/22/2022 19:41 Procedure: CT ABDOMEN PELVIS WO IV CONTRAST Ordering Provider: MARIN MATTHEW Reason For Exam: Nausea/vomiting CT ABDOMEN AND PELVIS WITHOUT IV CONTRAST CLINICAL INDICATION: Nausea and vomiting TECHNIQUE: Multidetector spiral transaxial sequence was performed through the abdomen and pelvis. Images were reconstructed at 3 mm slice width at 3 mm interval. Dose reduction was employed with automated exposure control. COMPARISON:05/15/2022 CT abdomen and pelvis FINDINGS: Exam quality: This examination is limited for the evaluation of solid organs and vascular structures due to the lack of intravenous contrast. Lower chest: Mild bibasilar atelectasis without evidence of pleural effusion or focal consolidation. The heart is normal in size without evidence of pericardial effusion. The distal esophagus is unremarkable. Liver: The liver is normal in size without evidence of focal liver lesion. Biliary tree: Intrahepatic and extrahepatic ducts are nondilated. Gallbladder: The gallbladder is nondistended and without evidence of radiopaque stones. Pancreas: The pancreas appears unremarkable without evidence of ductal dilatation or mass. Spleen: The spleen is enlarged measuring 14 cm in length. Adrenals: Bilateral adrenal glands appear normal. Kidneys: The bilateral kidneys are normal in size. There are two 3 mm nonobstructing calculi in the superior pole of the right kidney. No evidence of hydroureteronephrosis or ureterolithiasis. Bladder: The bladder is decompressed limiting evaluation. Pelvic organs/viscera: No mass identified Bowel: The stomach is unremarkable. Questionable circumferential wall thickening of the rectum. Otherwise the visualized bowel is unremarkable without evidence of wall thickening or dilatation. Retroperitoneal/mesenteric lymphadenopathy: There is no free fluid, loculated fluid collection, or free air. No evidence of abdominal pelvic lymphadenopathy. Aorta: There is no aneurysmal dilatation of the abdominal aorta. Moderate atherosclerotic calcifications of the abdominal aorta and its branches. Abdominal wall: Fat-containing left inguinal hernia. Bones: Moderate multilevel discogenic degenerative changes. Stable retrolisthesis at L2-L3. IMPRESSION: Questionable circumferential wall thickening of the rectum, please correlate with clinical concern for colitis. Further evaluation with direct visualization may be obtained as indicated. Splenomegaly. Nonobstructing right renal calculi. IMPRESSION/RECOMMENDATIONS: Chronic n/v- resolved x [address] Ultrasound/CT steatosis; no obstructive process; no evidence of pancreatitis Chronic liver disease- intraop liver biosy 01/05/2023 consistent with cirrhosis; platlets 93; INR 1.1 Chronic diarrhea- GI panel negative; fecal elastase pending; CRP normal Hepatitis C antibody positive- viral load pending --continue Pantoprazole --continue supportive management --There is no evidence for urgent need for EGD/Colon --recommend outpatient EGD and colonoscopy; variceal screening, colon cancer screening; rule out IBD/microscopic colitis --Hepatitis C tx as indicated- recommend consult to ID if positive --await fecal elastase- consider need for PERT --the GI service will sign off; please reconsult if needed ATTENDING NOTE: Pt is being followed by inpatient GI service for: Nausea, vomiting, diarrhea Above note has also been edited to reflect my additional findings and recommendations Family present at bedside none Brief Exam Gen: comfortable, NAD HEENT: anicteric sclera Chest: normal respiratory effort Abd: benign Ext: no c/c/e Neuro: nonfocal Labs/Studies reviewed in [facility] GI PCR negative ASSESSMENT/PLAN: Nausea/Vomiting - now resolved Chronic Diarrhea GERD H/O EGD - done by Dr. Callaway for evaluation of n/v - see above details H/O cholecystectomy H/O liver biopsy 12/2022 during cholecystectomy Cirrhosis HCV Ab+ Alcohol withdrawal --Continue supportive care, antiemetics prn --Advance diet as tolerated --Consider Imodium prn or Cholestyramine --Follow-up pending stool studies and pending labs --Additional assessment and plan as noted above --GI inpatient service will follow peripherally and sign off at this time, please call if new issues/questions arise. --Recommend patient arrange for follow-up in outpatient GI clinic (with his established outpatient Lpn Rn Dr. Reyes) upon discharge from hospital. ZACK VALDES MD Associated Order(s): IP CONSULT TO DIETITIAN Nutrition Assessment Type and Reason for Visit: Initial, Consult, Positive Nutrition Screen (weight loss, decreased appetite, consult for unintentional weight loss) Nutrition Recommendations/Plan: PATIENT MEETS ASPEN/AND GUIDELINES FOR SEVERE MALNUTRITION IN THE CONTEXT OF CHRONIC ILLNESS. 1. Pt is currently ordered a Regular Diet. --> DM history noted however HgbA1c 4.7% on 04/02/23, noted slight hyperglycemia of 111mg/dL in labs today, continue to monitor need for CHO Controlled restrictions however would favor liberal regular diet at this time to promote improved PO intake. --> pt states he has been having issues with swallowing- states that he will go to swallow food and it wont go down and 'will nearly choke me to ' so he has to spit the food out, states that he has no trouble swallowing liquids- may be beneficial to have COIL PLACER assess to ensure no swallowing complications. 2. Will continue to monitor PO intake for adequacy once better established- lunch tray observed with 1 bite of hamburger consumed. 3. Per MNT Protocol will initiate Ensure High Protein TID with meals (monitor need to change to Ensure Plus HP pending bowel status), opted for Ensure HP at this time given lower fat content to hopefully in turn promote improved tolerance (noted elevated lipase), 8fl oz Ensure HP provides 160 calories, 16gm protein, pt favors chocolate flavor. 4. Will continue to monitor GI recommendations as consult is completed and need for nutrition education. 5. Will continue to monitor weight changes, labs and overall nutrition status 6. RD will continue to follow up weekly Malnutrition Assessment: Malnutrition Status: Severe malnutrition Context: Chronic Illness Findings of the 6 clinical characteristics of malnutrition: Energy Intake: 75% or less estimated energy requirements for 1 month or longer Weight Loss: Greater than 5% over 1 month (12.8% loss over 1.5 month time period (182# standing scale on 02/13 to CBW 160#), pt himself reports UBW of 220# with associated 60# weight loss x5 months however this is not corroborated in EPIC review) Body Fat Loss: Unable to assess (deferred at this time for pt comfort) Muscle Mass Loss: Unable to assess (deferred at this time for pt comfort) Fluid Accumulation: No significant fluid accumulation Sterilisation Technician Strength: Not Performed Nutrition Assessment: pt with PMH significant for anxiety, depression, DM, hypothyroidism, HTN, cirrhosis, alcohol abuse and reflux who presented to 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, lab studies demonstrated mild to moderate elevation of LFTs (AST 208, ALT 89, bilirubin 0.7), Na initially low but improved, lipase noted to be elvated at 365, pt initiated on phenobarbital for alcohol withdrawal syndrome and transferred to detox for further management, Medicine service consulted today due to unintentional weight loss- pt stated to that he used to weigh 230-240# at his heaviest but has been losing weight for at least a year, stated he only eats about 1 meal a day due to a decreased appetite, pt has also been having associated non-bloody vomiting (states this can last for 3-4 hours), diarrhea (10-15 non-bloody BM/day x1 year duration) and abdominal pain, pt stated food does not affect his vomiting or diarrhea but feels that EtOH use worsens it, GI consulted today and consult is pending, KUB ordered and showed no acute findings and possible ingested pill or other foreign body lower right hemipelvis measuring 12x4.5mm, abdominal ultrasound completed showing diffuse hepatic steatosis and no acute findings, CXR without acute findings, in terms of nutrition pt is currently ordered a Regular Diet (active since 04/02, no PO intakes in flowsheets to review). RD spoke with pt in room, pt states that his appetite has not been good for awhile, RD observed lunch tray with 2 bites of hamburger eaten with 1 bite spit back out, pt states that he has been having issues with swallowing as well- states that he will go to swallow food and it wont go down and 'will nearly choke me to ' so he has to spit the food out, states that he has no trouble swallowing liquids, pt asking for Ensure- states he will 'bong one right now', states that he likes the chocolate flavor, CBW 160# estimated on 04/02- RD unable to obtain bedscale weight as pt was sitting edge of bed, per EPIC review --> 05/15: 177#, 11/07: 184#, 12/23: 177# bedscale, 02/13: 182# standing scale, 03/10: 172#, pt himself is reporting UBW of ~220# with 60# loss x5 months, will initiate ONS and monitor GI recommendations. Estimated Daily Nutrient Needs: Energy Requirements Based On: Kcal/kg Weight Used for Energy Requirements: Current Weight for Energy Calculation (kg): 72.6 kg Total Energy Requirements (kcals/day): 2033-2178kcals/day Weight Used for Protein Requirements: Current Weight in Kg Used for Protein Requirements: 72.6 kg Estimated Total Protein (g/day): 87-94gm pro/day Estimated Daily Total Fluid (ml/day): per MD recommendations Nutrition Related Findings: Pranav = 19, skin intact, missing teeth, active bowel sounds, BM 04/04- diarrhea, pt states that his poop has been 'extra smelly lately', GI consulted and pending, ongoing swallowing issues with solid foods as well Wound Type: None Current Nutrition Therapies: Adult diet Regular Current Oral Intake Average Meal Intake: 1-25% Average Supplements Intake: None Ordered (pt requested to receive Ensure multiple times during assessment today) Anthropometric Measures: Height: 177.8 cm (5' 10") Current Body Weight: 72.6 kg (160 lb) (estimated 04/02) Weight Source: (estimated) Admission Body Weight: 72.6 kg (160 lb) (estimated 04/02) Usual Body Weight: 82.6 kg (182 lb) (per EPIC review --> 05/15: 177#, 11/07: 184#, 12/23: 177# bedscale, 02/13: 182# standing scale, 03/10: 172#, pt himself reports UBW of 220# with 60# loss x5 months) % Weight Change (Calculated): -12.1 [place] Body Weight (lbs) (Calculated): 166 lbs [place] Body Weight (Kg) (Calculated): 75 kg % [place] Body Weight (Calculated): 96.4 % BMI (kg/m2) (Calculated): 23 Weight Adjustment For: No Adjustment BMI Categories: Normal Weight (BMI 18.5-24.9) Nutrition Diagnosis: Severe malnutrition, In context of chronic illness related to (alcohol use history, ongoing issues with N/V/D for 5 months now with associated poor appetite/intake, eating 1 meal/day at best, having issues with swallowing solid foods) as evidenced by (</=75% energy intake compared to estimated energy needs for >/= 1 month, 12.8% weight loss over 1.5 months (02/13: 182# standing scale to CBW 160#)) Nutrition Interventions: Nutrition Education/Counseling: No recommendation at this time Coordination of Nutrition Care: Continue to monitor while inpatient Goals: Goals: PO intake 50% or greater, by next RD assessment Nutrition Monitoring and Evaluation: Behavioral-Environmental Outcomes: None Identified Food/Nutrient Intake Outcomes: Diet Advancement/Tolerance, Food and Nutrient Intake, Supplement Intake Physical Signs/Symptoms Outcomes: Biochemical Data, GI Status, Diarrhea, Nausea or Vomiting, Fluid Status or Edema, Meal Time Behavior, Weight, Skin, Nutrition Focused Physical Findings Discharge Planning: Continue current diet Karoline Bajwa RD Contact: available via [employer] or *[phone] Associated Order(s): IP CONSULT TO INTERNAL MEDICINE Images from the original note were not included. [facility] Initial Consult Woody Ni : 1960(63 y.o.) PCP: Jani Quezada Assessment and Plan: Principal Problem: Alcohol withdrawal syndrome without complication (HCC) Active Problems: Severe alcohol use disorder (HCC) #Unintentional Weight Loss #Malnutrition #EtOH Use disorder #Pancytopenia #Transaminitis -Patient has lost about 20 pounds in the past year but more overall. I suspect this is most likely due to EtOH use disorder however will start the workup to rule out additional underlying pathology -HCV, HIV, TSH, A1C (was ok a few months ago) ordered -CRP was wnl when checked this admission -CXR ordered -CBC shows pancytopenia. Again this is suspected to be secondary to EtOH use disorder and chronic liver disease however will start will a peripheral smear -Elevated AST/ALT ratio consistent with liver injury secondary to EtOH -Patient is due for repeat colonoscopy -Agree with thiamine and folic acid supplementation #Chronic diarrhea #Daily emesis -Has been having 10-15 bowel movements per day for a year per his report. Not affected by food, no blood -GI panel, fecal elastase and celiac panel ordered -Does have a hx of cholecystectomy which could be contributing to symptoms -Will have GI evaluate to due daily vomiting and significant diarrhea ongoing for at least 1 year #AGMA -Seen on CMP from admission. 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 Hospital medicine will follow along BMI Classification: Body mass index is 22.96 kg/m . morbid obesity BMI 40 or > I personally examined the patient and reviewed chart, data, labs and radiology reports. Plan of care was discussed with patient, all questions answered. Total time spent: 80 minutes , preparing to see the patient (reviewed prior notes and current laboratory findings/imaging reports), performing the exam and evaluation, counseling the patient, ordering labs and/or diagnostic studies, documenting the encounter and coordinating care. 6AM-6PM please page: Dr. Inder Stein, DO 6PM-6AM please page: [facility] Internal Medicine Subjective: Chief Complaint Patient presents with Alcohol Problem Interval History: Woody Ni is a 63 y.o. male admitted to [facility] for EtOH detox. [facility] consulted for unintentional weight loss. Per chart review, since May of 2022, the patient has lost approximately 20 pounds (177->160lbs). He states that he used to weigh 230-240lbs at his heaviest but has been losing weight for at least a year. He states he only eats about 1 meal a day and this is due to a decreased appetite. Associated with the weight loss is daily non-bloody vomiting (states this can last for 3-4 hours), diarrhea (10-15 non-bloody bowel movements for over a year), abdominal pain. He states that food does not affect his vomiting or diarrhea but feels that his EtOH use worsens it. He had a colonoscopy completed 8-9 years ago where he states they found polyps. He states he was told he should undergo a colonoscopy every 2 years however has not followed up since. He denies F/C, chest pain, sob, cough, night sweats, urinary symptoms. 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 Nausea and vomiting 12/22/22-12/26/22 admitted at [facility] Pain management Sleep apnea noncompliant with device Past Surgical History: Procedure Laterality Date BACK SURGERY x 2 CHOLECYSTECTOMY LAMINECTOMY LAP,CHOLECYSTECTOMY (HISTORICAL) N/A 01/05/2023 WISDOM TOOTH EXTRACTION Family History Problem Relation Name Age of Onset Depression Mother Depression Maternal Grandmother Social History Socioeconomic History Marital status: Spouse name: Not on file Number of children: Not on file Years of education: Not on file Highest education level: Not on file Occupational History Not on file Tobacco Use Smoking status: Every Day Types: Cigars Last attempt to quit: 1982 Years since quittin.4 Smokeless tobacco: Former Vaping Use Vaping Use: Every day Substances: CBD, canabis Devices: Disposable Substance and Sexual Activity Alcohol use: Yes Alcohol/week: 42.0 standard drinks of alcohol Types: 42 Cans of beer per week Comment: TALL BOY ARE DOUBLE BEERS 42 per week Drug use: Yes Types: Marijuana Comment: daily Sexual activity: Not on file Other Topics Concern Not on file Social History Narrative Not on file Social Determinants of Health Financial Resource Strain: Not on file Food Insecurity: Not on file Transportation Needs: No Transportation Needs (04/03/2023) PRAPARE - Transportation Lack of Transportation (Medical): No Lack of Transportation (Non-Medical): No Physical Activity: Inactive (04/03/2023) Exercise Vital Sign Days of Exercise per Week: 0 days Minutes of Exercise per Session: 0 min Stress: No Stress Concern Present (04/03/2023) [employer] [place] [employer] - Occupational Stress Questionnaire Feeling of Stress : Not at all Social Connections: Not on file Intimate Partner Violence: Not At Risk (02/11/2023) Humiliation, Afraid, Rape, and Kick questionnaire Fear of Current or Ex-Partner: No Emotionally Abused: No Physically Abused: No Sexually Abused: No Housing Stability: Low Risk (04/03/2023) Housing Stability Vital Sign Unable to Pay for Housing in the Last Year: No Number of Places Lived in the Last Year: 1 Unstable Housing in the Last Year: No Allergies Allergen Reactions Allopurinol Other Breaks out in blisters Codeine Nausea Only Penicillin G Swelling Prior to Admission medications Medication Sig Start Date End Date Taking? Authorizing Provider acetaminophen (Tylenol) 325 MG tablet every 4 hours as needed. Historical Provider, albuterol (2.5 MG/3ML) 0.083% nebulizer solution Inhale 2.5 mg. PRN Historical Provider, albuterol 108 (90 Base) MCG/ACT inhaler every 4 hours. Historical Provider, alendronate (Fosamax) 70 MG tablet Take 70 mg by mouth once a week. 05/19/17 Historical Provider, amLODIPine (Norvasc) 2.5 MG tablet Take 2.5 mg by mouth in the morning. 05/27/17 Historical Provider, Bioflavonoid Products (Alana-C) tablet Every 24 hours. Historical Provider, calcium carbonate (Tums) 500 MG chewable tablet Chew 1 tablet (500 mg) daily. Do not start before February 15, 2023. 02/15/23 02/15/24 Kacie Benz DO cyanocobalamin (Vitamin B-12) 1000 MCG/ML injection 1 mL intramuscularly once a month Historical Provider, dicyclomine (Bentyl) 20 MG tablet Take 1 tablet (20 mg) by mouth in the morning and 1 tablet (20 mg) at noon and 1 tablet (20 mg) in the evening. Take before meals. 11/07/22 11/07/23 Beryl Holder PA-C fluticasone (Flonase) 50 MCG/ACT nasal spray Administer 1 spray into affected nostril(s). 04/27/17 Historical Provider, ipratropium (Atrovent) 0.02 % nebulizer solution PRN 05/04/17 Historical Provider, ipratropium-albuterol (Duo-Neb) 0.5-2.5 mg/3 mL nebulizer solution every 6 hours. Historical Provider, ketoconazole (NIZOral) 2 % shampoo EVERY THREE DAYS 11/18/19 Historical Provider, levothyroxine (Synthroid, Levoxyl) 50 MCG tablet TAKE 1 TABLET BY MOUTH DAILY 06/06/22 06/06/23 Nicolas Qiu losartan (Cozaar) 100 MG tablet Take 1 tablet (100 mg) by mouth daily. Do not start before February 15, 2023. 02/15/23 02/15/24 Kacie Benz DO niacin 100 MG tablet Every 24 hours. Historical Provider, nitroglycerin (Nitrostat) 0.4 MG SL tablet 1 tab(s) sublingually every 5 minutes x 3 doses prn Historical Provider, ondansetron (Zofran) 4 MG tablet Every 24 hours. Historical Provider, oxyCODONE (Roxicodone) 10 MG immediate release tablet Take 10 mg by mouth in the morning and 10 mg at noon and 10 mg in the evening and 10 mg before bedtime. 05/29/17 Historical Provider, pantoprazole (ProtoNix) 40 MG EC tablet Take 40 mg by mouth daily. Historical Provider, potassium chloride ER (Micro-K) 10 MEQ ER capsule Take 10 mEq by mouth in the morning. 03/30/17 Historical Provider, sodium chloride 1 g tablet Take 1 tablet (1 g) by mouth in the morning and 1 tablet (1 g) in the evening. Take with meals. 02/14/23 02/14/24 Kacie Benz, tamsulosin (Flomax) 0.4 MG 24 hr capsule Take 0.4 mg by mouth daily. 01/27/22 Historical Provider, Review of Systems-Please see HPI, otherwise complete ROS is negative Objective: Vitals: 04/03/23 1116 04/03/23 1712 04/03/23 2330 04/04/23 0637 BP: (!) 148/81 127/76 127/74 (!) 136/101 BP Location: Left arm Right arm Left arm Right arm Patient Position: Lying Lying Lying Lying Pulse: 98 103 86 91 Resp: 16 16 16 16 Temp: 36.4 C (97.6 F) 36.9 C (98.4 F) 36.6 C (97.8 F) TempSrc: Temporal Temporal Temporal SpO2: 95% 98% 99% 98% Weight: Height: Physical Exam Constitutional: General: He is not in acute distress. HENT: Head: Normocephalic. Mouth/Throat: Mouth: Mucous membranes are moist. Eyes: Extraocular Movements: Extraocular movements intact. Cardiovascular: Rate and Rhythm: Normal rate and regular rhythm. Heart sounds: No murmur heard. Pulmonary: Effort: Pulmonary effort is normal. Breath sounds: Normal breath sounds. Abdominal: Palpations: Abdomen is soft. Tenderness: There is abdominal tenderness. Comments: Significant tenderness in the RUQ and RLQ Musculoskeletal: General: Normal range of motion. Skin: General: Skin is warm. Comments: Quezada complexion Neurological: Mental Status: He is alert. Mental status is at baseline. Psychiatric: Mood and Affect: Mood normal. Lab Results Component Value Date NA 134 (L) 04/02/2023 K 4.3 04/02/2023 CL 100 04/02/2023 CO2 18 (L) 04/02/2023 BUN 4 (L) 04/02/2023 CREATININE 0.86 04/02/2023 GLUCOSE 111 (H) 04/02/2023 CALCIUM 8.8 04/02/2023 PROT 7.3 04/02/2023 BILITOT 0.7 04/02/2023 ALKPHOS 79 04/02/2023 AST 208 (H) 04/02/2023 ALT 89 (H) 04/02/2023 Lab Results Component Value Date WBC 2.5 (L) 04/02/2023 HGB 11.4 (L) 04/02/2023 HCT 31.7 (L) 04/02/2023 MCV 95.2 04/02/2023 PLT 93 (L) 04/02/2023 Additional results since admission have been reviewed. 6AM-6PM please message me via [employer]. 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 Patient denied having any SI/HI/AVH and pain. Patient med compliant. Patient complains of having indigestion. Patient given PRN Mylanta. Patient ordered breakfast but did not eat; has no appetite. Patient seen by gastroenterology this morning. Patient encouraged to notify nursing staff of any needs. Will monitor for patient safety. [facility] [employer] 04-04-2023 Plan of care note Problem: Sensory Perceptual Alteration as Evidenced by Goal: Cooperates with admission process Outcome: Adequate for Discharge Goal: Patient/Family participate in treatment and discharge plans Outcome: Adequate for Discharge Goal: Patient/Family verbalizes awareness of resources Outcome: Adequate for Discharge Goal: Participates in unit activities Outcome: Adequate for Discharge Goal: Discusses signs/symptoms of illness/treatment options Outcome: Adequate for Discharge Goal: Initiates reality-based interactions Outcome: Adequate for Discharge Goal: Able to discuss content of hallucinations/delusions Outcome: Adequate for Discharge Goal: Notifies staff when experiencing hallucinations/delusions Outcome: Adequate for Discharge Goal: Verbalizes reduction in hallucinations/delusions Outcome: Adequate for Discharge Goal: Will not act on psychotic perception Outcome: Adequate for Discharge Goal: Understands least restrictive measures Outcome: Adequate for Discharge Goal: Free from restraint events Outcome: Adequate for Discharge Problem: Problem Interventions Goal: Dietary Supplements Outcome: Adequate for Discharge [facility] 04-04-2023 Consult note Associated Order (s): IP CONSULT TO DIETITIAN Nutrition Assessment Type and Reason for Visit: Initial, Consult, Positive Nutrition Screen (weight loss, decreased appetite, MD consult for unintentional weight loss) Nutrition Recommendations/Plan: PATIENT MEETS ASPEN/AND GUIDELINES FOR SEVERE MALNUTRITION IN THE CONTEXT OF CHRONIC ILLNESS. 1. Pt is currently ordered a Regular Diet. --> DM history noted however HgbA1c 4.7% on 04/02/23, noted slight hyperglycemia of 111mg/dL in labs today, continue to monitor need for CHO Controlled restrictions however would favor liberal regular diet at this time to promote improved PO intake. --> pt states he has been having issues with swallowing- states that he will go to swallow food and it wont go down and 'will nearly choke me to ' so he has to spit the food out, states that he has no trouble swallowing liquids- may be beneficial to have COIL PLACER assess to ensure no swallowing complications. 2. Will continue to monitor PO intake for adequacy once better established- lunch tray observed with 1 bite of hamburger consumed. 3. Per MNT Protocol will initiate Ensure High Protein TID with meals (monitor need to change to Ensure Plus HP pending bowel status), opted for Ensure HP at this time given lower fat content to hopefully in turn promote improved tolerance (noted elevated lipase), 8fl oz Ensure HP provides 160 calories, 16gm protein, pt favors chocolate flavor. 4. Will continue to monitor GI recommendations as consult is completed and need for nutrition education. 5. Will continue to monitor weight changes, labs and overall nutrition status 6. RD will continue to follow up weekly Malnutrition Assessment: Malnutrition Status: Severe malnutrition Context: Chronic Illness Findings of the 6 clinical characteristics of malnutrition: Energy Intake: 75% or less estimated energy requirements for 1 month or longer Weight Loss: Greater than 5% over 1 month (12.8% loss over 1.5 month time period (182# standing scale on 02/13 to CBW 160#), pt himself reports UBW of 220# with associated 60# weight loss x5 months however this is not corroborated in EPIC review) Body Fat Loss: Unable to assess (deferred at this time for pt comfort) Muscle Mass Loss: Unable to assess (deferred at this time for pt comfort) Fluid Accumulation: No significant fluid accumulation Sterilisation Technician Strength: Not Performed Nutrition Assessment: pt with PMH significant for anxiety, depression, DM, hypothyroidism, HTN, cirrhosis, alcohol abuse and reflux who presented to 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, lab studies demonstrated mild to moderate elevation of LFTs (AST 208, ALT 89, bilirubin 0.7), Na initially low but improved, lipase noted to be elvated at 365, pt initiated on phenobarbital for alcohol withdrawal syndrome and transferred to detox for further management, Medicine service consulted today due to unintentional weight loss- pt stated to MD that he used to weigh 230-240# at his heaviest but has been losing weight for at least a year, stated he only eats about 1 meal a day due to a decreased appetite, pt has also been having associated non-bloody vomiting (states this can last for 3-4 hours), diarrhea (10-15 non-bloody BM/day x1 year duration) and abdominal pain, pt stated food does not affect his vomiting or diarrhea but feels that EtOH use worsens it, GI consulted today and consult is pending, KUB ordered and showed no acute findings and possible ingested pill or other foreign body lower right hemipelvis measuring 12x4.5mm, abdominal ultrasound completed showing diffuse hepatic steatosis and no acute findings, CXR without acute findings, in terms of nutrition pt is currently ordered a Regular Diet (active since 04/02, no PO intakes in flowsheets to review). RD spoke with pt in room, pt states that his appetite has not been good for awhile, RD observed lunch tray with 2 bites of hamburger eaten with 1 bite spit back out, pt states that he has been having issues with swallowing as well- states that he will go to swallow food and it wont go down and 'will nearly choke me to ' so he has to spit the food out, states that he has no trouble swallowing liquids, pt asking for Ensure- states he will 'bong one right now', states that he likes the chocolate flavor, CBW 160# estimated on 04/02- RD unable to obtain bedscale weight as pt was sitting edge of bed, per EPIC review --> 05/15: 177#, 11/07: 184#, 12/23: 177# bedscale, 02/13: 182# standing scale, 03/10: 172#, pt himself is reporting UBW of ~220# with 60# loss x5 months, will initiate ONS and monitor GI recommendations. Estimated Daily Nutrient Needs: Energy Requirements Based On: Kcal/kg Weight Used for Energy Requirements: Current Weight for Energy Calculation (kg): 72.6 kg Total Energy Requirements (kcals/day): 3-2178kcals/day Weight Used for Protein Requirements: Current Weight in Kg Used for Protein Requirements: 72.6 kg Estimated Total Protein (g/day): 87-94gm pro/day Estimated Daily Total Fluid (ml/day): per MD recommendations Nutrition Related Findings: Pranav = 19, skin intact, missing teeth, active bowel sounds, BM 04/04- diarrhea, pt states that his poop has been 'extra smelly lately', GI consulted and pending, ongoing swallowing issues with solid foods as well Wound Type: None Current Nutrition Therapies: Adult diet Regular Current Oral Intake Average Meal Intake: 1-25% Average Supplements Intake: None Ordered (pt requested to receive Ensure multiple times during assessment today) Anthropometric Measures: Height: 177.8 cm (5' 10") Current Body Weight: 72.6 kg (160 lb) (estimated 04/02) Weight Source: (estimated) Admission Body Weight: 72.6 kg (160 lb) (estimated 04/02) Usual Body Weight: 82.6 kg (182 lb) (per EPIC review --> 05/15: 177#, 11/07: 184#, 12/23: 177# bedscale, 02/13: 182# standing scale, 03/10: 172#, pt himself reports UBW of 220# with 60# loss x5 months) % Weight Change (Calculated): -12.1 [place] Body Weight (lbs) (Calculated): 166 lbs [place] Body Weight (Kg) (Calculated): 75 kg % [place] Body Weight (Calculated): 96.4 % BMI (kg/m2) (Calculated): 23 Weight Adjustment For: No Adjustment BMI Categories: Normal Weight (BMI 18.5-24.9) Nutrition Diagnosis: Severe malnutrition, In context of chronic illness related to (alcohol use history, ongoing issues with N/V/D for 5 months now with associated poor appetite/intake, eating 1 meal/day at best, having issues with swallowing solid foods) as evidenced by (/= 1 month, 12.8% weight loss over 1.5 months (02/13: 182# standing scale to CBW 160#)) Nutrition Interventions: Nutrition Education/Counseling: No recommendation at this time Coordination of Nutrition Care: Continue to monitor while inpatient Goals: Goals: PO intake 50% or greater, by next RD assessment Nutrition Monitoring and Evaluation: Behavioral-Environmental Outcomes: None Identified Food/Nutrient Intake Outcomes: Diet Advancement/Tolerance, Food and Nutrient Intake, Supplement Intake Physical Signs/Symptoms Outcomes: Biochemical Data, GI Status, Diarrhea, Nausea or Vomiting, Fluid Status or Edema, Meal Time Behavior, Weight, Skin, Nutrition Focused Physical Findings Discharge Planning: Continue current diet Karoline Bajwa RD Contact: available via [employer] chat or *[phone] [facility] 04-04-2023 Nurse Note Patient alert and oriented during morning shift assessment. Patient denied having any withdrawal symptoms/SI/HI/AVH. Patient med compliant with all Meds. Patient complains of having 9/10 lower back pain. Patient given PRN tylenol. Patient requested albuterol; 1 puff given. Patient encouraged to order breakfast. Patient encouraged to notify nursing staff of any needs. Will continue to monitor for patient safety. Blood and stool collected for labs and sent to lab for testing. PRN Imodium given to patient at 1545 for diarrhea. [facility] 04-04-2023 Consult note Associated Order (s): IP CONSULT TO INTERNAL MEDICINE Images from the original note were not included. [facility] Initial Consult Woody Ni : 1960(63 y.o.) PCP: Jani Quezada Assessment and Plan: Principal Problem: Alcohol withdrawal syndrome without complication (HCC) Active Problems: Severe alcohol use disorder (HCC) #Unintentional Weight Loss #Malnutrition #EtOH Use disorder #Pancytopenia #Transaminitis -Patient has lost about 20 pounds in the past year but more overall. I suspect this is most likely due to EtOH use disorder however will start the workup to rule out additional underlying pathology -HCV, HIV, TSH, A1C (was ok a few months ago) ordered -CRP was wnl when checked this admission -CXR ordered -CBC shows pancytopenia. Again this is suspected to be secondary to EtOH use disorder and chronic liver disease however will start will a peripheral smear -Elevated AST/ALT ratio consistent with liver injury secondary to EtOH -Patient is due for repeat colonoscopy -Agree with thiamine and folic acid supplementation #Chronic diarrhea #Daily emesis -Has been having 10-15 bowel movements per day for a year per his report. Not affected by food, no blood -GI panel, fecal elastase and celiac panel ordered -Does have a hx of cholecystectomy which could be contributing to symptoms -Will have GI evaluate to due daily vomiting and significant diarrhea ongoing for at least 1 year #AGMA -Seen on CMP from admission. 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 Hospital medicine will follow along BMI Classification: Body mass index is 22.96 kg/m . morbid obesity BMI 40 or > I personally examined the patient and reviewed chart, data, labs and radiology reports. Plan of care was discussed with patient, all questions answered. Total time spent: 80 minutes , preparing to see the patient (reviewed prior notes and current laboratory findings/imaging reports), performing the exam and evaluation, counseling the patient, ordering labs and/or diagnostic studies, documenting the encounter and coordinating care. 6AM-6PM please page: Dr. Inder Stein, DO 6PM-6AM please page: [facility] Internal Medicine Subjective: Chief Complaint Patient presents with Alcohol Problem Interval History: Woody Ni is a 63 y.o. male admitted to [facility] for EtOH detox. [facility] consulted for unintentional weight loss. Per chart review, since May of 2022, the patient has lost approximately 20 pounds (177->160lbs). He states that he used to weigh 230-240lbs at his heaviest but has been losing weight for at least a year. He states he only eats about 1 meal a day and this is due to a decreased appetite. Associated with the weight loss is daily non-bloody vomiting (states this can last for 3-4 hours), diarrhea (10-15 non-bloody bowel movements for over a year), abdominal pain. He states that food does not affect his vomiting or diarrhea but feels that his EtOH use worsens it. He had a colonoscopy completed 8-9 years ago where he states they found polyps. He states he was told he should undergo a colonoscopy every 2 years however has not followed up since. He denies F/C, chest pain, sob, cough, night sweats, urinary symptoms. 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 Nausea and vomiting 12/22/22-12/26/22 admitted at [facility] Pain management Sleep apnea noncompliant with device Past Surgical History: Procedure Laterality Date BACK SURGERY x 2 CHOLECYSTECTOMY LAMINECTOMY LAP,CHOLECYSTECTOMY (HISTORICAL) N/A 01/05/2023 WISDOM TOOTH EXTRACTION Family History Problem Relation Name Age of Onset Depression Mother Depression Maternal Grandmother Social History Socioeconomic History Marital status: Spouse name: Not on file Number of children: Not on file Years of education: Not on file Highest education level: Not on file Occupational History Not on file Tobacco Use Smoking status: Every Day Types: Cigars Last attempt to quit: 1983 Years since quittin.4 Smokeless tobacco: Former Vaping Use Vaping Use: Every day Substances: CBD, canabis Devices: Disposable Substance and Sexual Activity Alcohol use: Yes Alcohol/week: 42.0 standard drinks of alcohol Types: 42 Cans of beer per week Comment: TALL BOY ARE DOUBLE BEERS 42 per week Drug use: Yes Types: Marijuana Comment: daily Sexual activity: Not on file Other Topics Concern Not on file Social History Narrative Not on file Social Determinants of Health Financial Resource Strain: Not on file Food Insecurity: Not on file Transportation Needs: No Transportation Needs (04/03/2023) PRAPARE - Transportation Lack of Transportation (Medical): No Lack of Transportation (Non-Medical): No Physical Activity: Inactive (04/03/2023) Exercise Vital Sign Days of Exercise per Week: 0 days Minutes of Exercise per Session: 0 min Stress: No Stress Concern Present (04/03/2023) [employer] - Occupational Stress Questionnaire Feeling of Stress : Not at all Social Connections: Not on file Intimate Partner Violence: Not At Risk (02/11/2023) Humiliation, Afraid, Rape, and Kick questionnaire Fear of Current or Ex-Partner: No Emotionally Abused: No Physically Abused: No Sexually Abused: No Housing Stability: Low Risk (04/03/2023) Housing Stability Vital Sign Unable to Pay for Housing in the Last Year: No Number of Places Lived in the Last Year: 1 Unstable Housing in the Last Year: No Allergies Allergen Reactions Allopurinol Other Breaks out in blisters Codeine Nausea Only Penicillin G Swelling Prior to Admission medications Medication Sig Start Date End Date Taking? Authorizing Provider acetaminophen (Tylenol) 325 MG tablet every 4 hours as needed. Historical Provider, albuterol (2.5 MG/3ML) 0.083% nebulizer solution Inhale 2.5 mg. PRN Historical Provider, albuterol 108 (90 Base) MCG/ACT inhaler every 4 hours. Historical Provider, alendronate (Fosamax) 70 MG tablet Take 70 mg by mouth once a week. 05/19/17 Historical Provider, amLODIPine (Norvasc) 2.5 MG tablet Take 2.5 mg by mouth in the morning. 05/27/17 Historical Provider, Bioflavonoid Products (Alana-C) tablet Every 24 hours. Historical Provider, calcium carbonate (Tums) 500 MG chewable tablet Chew 1 tablet (500 mg) daily. Do not start before February 15, 2023. 02/15/23 02/15/24 Kacie Benz, cyanocobalamin (Vitamin B-12) 1000 MCG/ML injection 1 mL intramuscularly once a month Historical Provider, dicyclomine (Bentyl) 20 MG tablet Take 1 tablet (20 mg) by mouth in the morning and 1 tablet (20 mg) at noon and 1 tablet (20 mg) in the evening. Take before meals. 11/07/22 11/07/23 Beryl Holder PA-C fluticasone (Flonase) 50 MCG/ACT nasal spray Administer 1 spray into affected nostril(s). 04/27/17 Historical Provider, ipratropium (Atrovent) 0.02 % nebulizer solution PRN 05/04/17 Historical Provider, ipratropium-albuterol (Duo-Neb) 0.5-2.5 mg/3 mL nebulizer solution every 6 hours. Historical Provider, ketoconazole (NIZOral) 2 % shampoo EVERY THREE DAYS 11/18/19 Historical Provider, levothyroxine (Synthroid, Levoxyl) 50 MCG tablet TAKE 1 TABLET BY MOUTH DAILY 06/06/22 06/06/23 Nicolas Qiu losartan (Cozaar) 100 MG tablet Take 1 tablet (100 mg) by mouth daily. Do not start before February 15, 2023. 02/15/23 02/15/24 Kacie Benz DO niacin 100 MG tablet Every 24 hours. Historical Provider, nitroglycerin (Nitrostat) 0.4 MG SL tablet 1 tab(s) sublingually every 5 minutes x 3 doses prn Historical Provider, ondansetron (Zofran) 4 MG tablet Every 24 hours. Historical Provider, oxyCODONE (Roxicodone) 10 MG immediate release tablet Take 10 mg by mouth in the morning and 10 mg at noon and 10 mg in the evening and 10 mg before bedtime. 05/29/17 Historical Provider, pantoprazole (ProtoNix) 40 MG EC tablet Take 40 mg by mouth daily. Historical Provider, potassium chloride ER (Micro-K) 10 MEQ ER capsule Take 10 mEq by mouth in the morning. 03/30/17 Historical Provider, sodium chloride 1 g tablet Take 1 tablet (1 g) by mouth in the morning and 1 tablet (1 g) in the evening. Take with meals. 02/14/23 02/14/24 Kacie Benz, tamsulosin (Flomax) 0.4 MG 24 hr capsule Take 0.4 mg by mouth daily. 01/27/22 Historical Provider, Review of Systems-Please see HPI, otherwise complete ROS is negative Objective: Vitals: 04/03/23 1116 04/03/23 1712 04/03/23 2330 04/04/23 0637 BP: (!) 148/81 127/76 127/74 (!) 136/101 BP Location: Left arm Right arm Left arm Right arm Patient Position: Lying Lying Lying Lying Pulse: 98 103 86 91 Resp: 16 16 16 Temp: 36.4 C (97.6 F) 36.9 C (98.4 F) 36.6 C (97.8 F) TempSrc: Temporal Temporal Temporal SpO2: 95% 98% 99% 98% Weight: Height: Physical Exam Constitutional: General: He is not in acute distress. HENT: Head: Normocephalic. Mouth/Throat: Mouth: Mucous membranes are moist. Eyes: Extraocular Movements: Extraocular movements intact. Cardiovascular: Rate and Rhythm: Normal rate and regular rhythm. Heart sounds: No murmur heard. Pulmonary: Effort: Pulmonary effort is normal. Breath sounds: Normal breath sounds. Abdominal: Palpations: Abdomen is soft. Tenderness: There is abdominal tenderness. Comments: Significant tenderness in the RUQ and RLQ Musculoskeletal: General: Normal range of motion. Skin: General: Skin is warm. Comments: Quezada complexion Neurological: Mental Status: He is alert. Mental status is at baseline. Psychiatric: Mood and Affect: Mood normal. Lab Results Component Value Date NA 134 (L) 04/02/2023 K 4.3 04/02/2023 CL 100 04/02/2023 CO2 18 (L) 04/02/2023 BUN 4 (L) 04/02/2023 CREATININE 0.86 04/02/2023 GLUCOSE 111 (H) 04/02/2023 CALCIUM 8.8 04/02/2023 PROT 7.3 04/02/2023 BILITOT 0.7 04/02/2023 ALKPHOS 79 04/02/2023 AST 208 (H) 04/02/2023 ALT 89 (H) 04/02/2023 Lab Results Component Value Date WBC 2.5 (L) 04/02/2023 HGB 11.4 (L) 04/02/2023 HCT 31.7 (L) 04/02/2023 MCV 95.2 04/02/2023 PLT 93 (L) 04/02/2023 Additional results since admission have been reviewed. 6AM-6PM please message me via [employer]. 6PM-6AM please page [facility] [facility] 04-04-2023 Plan of care note Problem: Sensory Perceptual Alteration as Evidenced by Goal: Cooperates with admission process Outcome: Progressing Goal: Patient/Family participate in treatment and discharge plans Outcome: Progressing Goal: Patient/Family verbalizes awareness of resources Outcome: Progressing Goal: Participates in unit activities Outcome: Progressing Goal: Discusses signs/symptoms of illness/treatment options Outcome: Progressing Goal: Initiates reality-based interactions Outcome: Progressing Goal: Able to discuss content of hallucinations/delusions Outcome: Progressing Goal: Notifies staff when experiencing hallucinations/delusions Outcome: Progressing Goal: Verbalizes reduction in hallucinations/delusions Outcome: Progressing Goal: Will not act on psychotic perception Outcome: Progressing Goal: Understands least restrictive measures Outcome: Progressing Goal: Free from restraint events Outcome: Progressing T [facility] 04-03-2023 Plan of care note Consult acknowledged. Labs and vitals reviewed. The patient will be seen tomorrow with full consult note to follow. Thank you for the opportunity to participate in the care of this patient. Please reach out with concerns or questions. Inder Stein DO [facility] 04-03-2023 History and physical note [facility] Patient: Woody Ni Admit Date: 04/02/2023 Primary Care Physician: Jani Quezada History of Present Illness The patient is a 63-year-old male presenting to the detoxification unit for treatment of alcohol dependence/withdrawal. Prior to coming the hospital consuming six 24 ounce beers. Denies hard liquor use. He also denied use of any illicit drugs. When he presented to the hospital his blood alcohol level was 0.32 There is a clear history of loss of control, increased tolerance, continued use despite adverse consequences, inability to abstain successfully on his own. Withdrawal positive for anxiety, sweats, tremors but there is no document history of DTs or seizures. He has fallen on several occasions while intoxicated. He has never been involved in any formal outpatient treatment or 12-step involvement. At one point in time he was abstinent from alcohol for 2 years but relapsed 6 years ago. He was not involved in any 12-step meetings--- basically stayed sober on his own. Psychiatric history noncontributory. Past medical history is pertinent for hypertension, hypothyroidism,GERD, BPH, neuropathy. 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 Lab studies did demonstrate mild to moderate elevation of LFTs AST 208 ALT 89 bilirubin 0.7. Sodium initially low at 121 but most recent value was 134. Social History Socioeconomic History Marital status: Spouse name: Not on file Number of children: Not on file Years of education: Not on file Highest education level: Not on file Occupational History Not on file Tobacco Use Smoking status: Every Day Types: Cigars Last attempt to quit: 1982 Years since quittin.4 Smokeless tobacco: Former Vaping Use Vaping Use: Every day Substances: CBD, canabis Devices: Disposable Substance and Sexual Activity Alcohol use: Yes Alcohol/week: 42.0 standard drinks of alcohol Types: 42 Cans of beer per week Comment: TALL BOY ARE DOUBLE BEERS 42 per week Drug use: Yes Types: Marijuana Comment: daily Sexual activity: Not on file Other Topics Concern Not on file Social History Narrative Not on file Social Determinants of Health Financial Resource Strain: Not on file Food Insecurity: Not on file Transportation Needs: No Transportation Needs (04/03/2023) PRAPARE - Transportation Lack of Transportation (Medical): No Lack of Transportation (Non-Medical): No Physical Activity: Inactive (04/03/2023) Exercise Vital Sign Days of Exercise per Week: 0 days Minutes of Exercise per Session: 0 min Stress: No Stress Concern Present (04/03/2023) [employer] - Occupational Stress Questionnaire Feeling of Stress : Not at all Social Connections: Not on file Intimate Partner Violence: Not At Risk (02/11/2023) Humiliation, Afraid, Rape, and Kick questionnaire Fear of Current or Ex-Partner: No Emotionally Abused: No Physically Abused: No Sexually Abused: No Housing Stability: Low Risk (04/03/2023) Housing Stability Vital Sign Unable to Pay for Housing in the Last Year: No Number of Places Lived in the Last Year: 1 Unstable Housing in the Last Year: No 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 Nausea and vomiting 12/22/22-12/26/22 admitted at [facility] Pain management Sleep apnea noncompliant with device Past Surgical History: Procedure Laterality Date BACK SURGERY x 2 CHOLECYSTECTOMY LAMINECTOMY LAP,CHOLECYSTECTOMY (HISTORICAL) N/A 01/05/2023 WISDOM TOOTH EXTRACTION Family History Problem Relation Name Age of Onset Depression Mother Depression Maternal Grandmother Labs Recent Results (from the past 48 hour(s)) CBC auto differential Collection Time: 04/02/23 4:42 PM Result Value Ref Range Auto WBC 2.5 (L) 3.6 - 10.7 10*3/uL RBC 3.33 (L) 4.40 - 5.90 10*6/uL Hemoglobin 11.4 (L) 13.0 - 18.0 g/dL Hematocrit 31.7 (L) 40.0 - 52.0 % MCV 95.2 80.0 - 98.0 fL MCH 34.2 (H) 26.0 - 34.0 pg MCHC 36.0 32.0 - 36.0 % RDW 13.0 11.5 - 14.5 % Platelets 93 (L) 140 - 440 10*3/uL MPV 9.0 7.4 - 12.4 fL Neutrophils Relative 66.2 40.0 - 80.0 % Lymphocytes Relative 28.7 20.0 - 40.0 % Monocytes Relative 4.3 2.0 - 10.0 % Eosinophils Relative 0.0 (L) 1.0 - 6.0 % Basophils Relative 0.0 0.0 - 2.0 % Immature Grans % 0.8 (H) <=0.0 % Neutrophils Absolute 1.7 (L) 1.8 - 7.0 10*3/uL Lymphocytes Absolute 0.7 (L) 1.0 - 4.3 10*3/uL Monocytes Absolute 0.1 0.0 - 0.8 10*3/uL Eosinophils Absolute 0.0 0.0 - 0.5 10*3/uL Basophils Absolute 0.0 0.0 - 0.2 10*3/uL Immature Grans Absolute 0.0 <=0.0 10*3/uL Comprehensive metabolic panel Collection Time: 04/02/23 4:42 PM Result Value Ref Range SODIUM 134 (L) 135 - 145 mmol/L POTASSIUM 4.3 3.5 - 5.1 mmol/L CHLORIDE 100 98 - 107 mmol/L CARBON DIOXIDE 18 (L) 22 - 30 mmol/L ANION GAP 16 (H) 3 - 13 mmol/L UREA NITROGEN 4 (L) 9 - 20 mg/dL CREATININE 0.86 0.66 - 1.25 mg/dL GLUCOSE 111 (H) 70 - 100 mg/dL CALCIUM 8.8 8.4 - 10.4 mg/dL AST (SGOT) 208 (H) 15 - 46 U/L ALT 89 (H) 0 - 49 U/L ALKALINE PHOSPHATASE 79 38 - 126 U/L ALBUMIN 4.3 3.5 - 5.0 g/dL BILIRUBIN, TOTAL 0.7 0.2 - 1.3 mg/dL TOTAL PROTEIN 7.3 6.3 - 8.2 g/dL eGFR >90.0 >60.0 mL/min/1.73m*2 Lipase Collection Time: 04/02/23 4:42 PM Result Value Ref Range LIPASE 365 (H) 23 - 300 U/L C-reactive protein Collection Time: 04/02/23 4:42 PM Result Value Ref Range C REACTIVE PROTEIN <5.0 <10.0 mg/L Ethanol Collection Time: 04/02/23 4:42 PM Result Value Ref Range ETHANOL IN SER/PLAS 0.352 (HH) 0.000 - 0.010 g/dL Complete Urinalysis Collection Time: 04/02/23 5:49 PM Result Value Ref Range Color, Urine Colorless Lt. Yellow Clarity, Urine Clear Clear pH, Urine 5.0 5.0 - 8.0 pH Leukocytes, Urine Negative Negative Emma/uL Nitrite, Urine Negative Negative Protein, Urine Negative Negative mg/dL Glucose, Urine Normal Normal (<70) mg/dL Bilirubin, Urine Negative Negative mg/dL Ketones, Urine Negative Negative mg/dL Urobilinogen, Urine Normal Normal (0-1) mg/dL Blood, Urine Negative Negative mg/dL SPECIFIC GRAVITY OF URINE (NUMERIC) 1.002 (L) 1.005 - 1.030 Drug screen panel, emergency Collection Time: 04/02/23 5:49 PM Result Value Ref Range AMPHETAMINE SCREEN Negative BARBITURATES SCREEN Positive BENZODIAZEPINE SCREEN Negative COCAINE METAB. SCREEN Negative METHADONE SCREEN Negative OPIATES SCREEN Negative OXYCODONE SCREEN Negative PHENCYCLIDINE SCREEN Negative SARS-CoV-2 Antigen Collection Time: 04/02/23 5:51 PM Specimen: Nasal; Swab Result Value Ref Range SARS-CoV-2 Antigen Negative Negative Blood gas, venous ([place]) Collection Time: 04/02/23 6:08 PM Result Value Ref Range pH 7.363 7.330 - 7.430 pCO2 32 (L) 40 - 55 mm(Hg) pO2 168 (H) 30 - 50 mm(Hg) BASE EXCESS -7.0 (L) -3.0 - 3.0 mmol/L HCO3 18.4 (L) 23.0 - 27.0 mmol/L TCO2 19.0 (L) 24.0 - 28.0 mmol/L O2 Saturation 99.0 (H) 60.0 - 80.0 % Source Of Oxygen Room Air Medications Home Meds: Prior to Admission medications Medication Sig Start Date End Date Taking? Authorizing Provider acetaminophen (Tylenol) 325 MG tablet every 4 hours as needed. Historical Provider, albuterol (2.5 MG/3ML) 0.083% nebulizer solution Inhale 2.5 mg. PRN Historical Provider, albuterol 108 (90 Base) MCG/ACT inhaler every 4 hours. Historical Provider, alendronate (Fosamax) 70 MG tablet Take 70 mg by mouth once a week. 05/19/17 Historical Provider, amLODIPine (Norvasc) 2.5 MG tablet Take 2.5 mg by mouth in the morning. 05/27/17 Historical Provider, Bioflavonoid Products (Alana-C) tablet Every 24 hours. Historical Provider, calcium carbonate (Tums) 500 MG chewable tablet Chew 1 tablet (500 mg) daily. Do not start before February 15, 2023. 02/15/23 02/15/24 Kacie Benz DO cyanocobalamin (Vitamin B-12) 1000 MCG/ML injection 1 mL intramuscularly once a month Historical Provider, dicyclomine (Bentyl) 20 MG tablet Take 1 tablet (20 mg) by mouth in the morning and 1 tablet (20 mg) at noon and 1 tablet (20 mg) in the evening. Take before meals. 11/07/22 11/07/23 Beryl Holder PA-C fluticasone (Flonase) 50 MCG/ACT nasal spray Administer 1 spray into affected nostril(s). 04/27/17 Historical Provider, ipratropium (Atrovent) 0.02 % nebulizer solution PRN 05/04/17 Historical Provider, ipratropium-albuterol (Duo-Neb) 0.5-2.5 mg/3 mL nebulizer solution every 6 hours. Historical Provider, ketoconazole (NIZOral) 2 % shampoo EVERY THREE DAYS 11/18/19 Historical Provider, levothyroxine (Synthroid, Levoxyl) 50 MCG tablet TAKE 1 TABLET BY MOUTH DAILY 06/06/22 06/06/23 Nicolas Qiu losartan (Cozaar) 100 MG tablet Take 1 tablet (100 mg) by mouth daily. Do not start before February 15, 2023. 02/15/23 02/15/24 Kacie Benz DO niacin 100 MG tablet Every 24 hours. Historical Provider, nitroglycerin (Nitrostat) 0.4 MG SL tablet 1 tab(s) sublingually every 5 minutes x 3 doses prn Historical Provider, ondansetron (Zofran) 4 MG tablet Every 24 hours. Historical Provider, oxyCODONE (Roxicodone) 10 MG immediate release tablet Take 10 mg by mouth in the morning and 10 mg at noon and 10 mg in the evening and 10 mg before bedtime. 05/29/17 Historical Provider, pantoprazole (ProtoNix) 40 MG EC tablet Take 40 mg by mouth daily. Historical Provider, potassium chloride ER (Micro-K) 10 MEQ ER capsule Take 10 mEq by mouth in the morning. 03/30/17 Historical Provider, sodium chloride 1 g tablet Take 1 tablet (1 g) by mouth in the morning and 1 tablet (1 g) in the evening. Take with meals. 02/14/23 02/14/24 Kacie Benz, tamsulosin (Flomax) 0.4 MG 24 hr capsule Take 0.4 mg by mouth daily. 01/27/22 Historical Provider, Inpatient Scheduled Meds: amLODIPine, 2.5 mg, Oral, Daily levothyroxine, 50 mcg, Oral, qAM AC losartan, 100 mg, Oral, Daily pantoprazole, 40 mg, Oral, Daily PHENobarbital, 97.2 mg, Oral, Q4H tamsulosin, 0.4 mg, Oral, Daily therapeutic multivitamin-minerals, 1 tablet, Oral, Daily Inpatient PRN Meds: PRN medications: acetaminophen, albuterol, albuterol, aluminum & magnesium hydroxide-simethicone, hydrOXYzine pamoate, loperamide, nitroglycerin, ondansetron ODT, traZODone Exam Vitals: 04/02/23 1846 04/02/23 2230 04/03/23 0532 04/03/23 1116 BP: (!) 134/95 (!) 147/77 139/81 (!) 148/81 BP Location: Left arm Patient Position: Lying Pulse: 94 101 103 98 Resp: 18 16 Temp: 36.9 C (98.4 F) 37.9 C (100.2 F) 36.4 C (97.6 F) TempSrc: Temporal SpO2: 100% 98% 96% 95% Weight: Height: Physical Exam Patient bed ridden, disheveled, flushed, diaphoretic. Moderate to marked tremors noted. Very fatigued, slightly sedated. Pleasant, cooperative. Oriented x4 but slow to respond to questions. No auditory, tactile or visual disturbances. Assessment & Plan At this point in time patient remains on phenobarbital for alcohol withdrawal syndrome. As patient stabilizes will investigate treatment options. I did request medical consultation for medical issues noted above including 60 pound weight loss, neuropathy. FLAVIO SHERMAN MD Addiction Medicine 04/03/2023 at 2:07 PM -75-- minutes were spent reviewing the patient's records, evaluating the patient, entering orders, coordinating care with the treatment team, and creating a progress note. [facility] 04-03-2023 History and physical note [facility] Addiction Medicine Patient: Woody Ni Admit Date: 04/02/2023 Primary Care Physician: Jani Quezada History of Present Illness The patient is a 63-year-old male presenting to the detoxification unit for treatment of alcohol dependence/withdrawal. Prior to coming the hospital consuming six 24 ounce beers. Denies hard liquor use. He also denied use of any illicit drugs. When he presented to the hospital his blood alcohol level was 0.32 There is a clear history of loss of control, increased tolerance, continued use despite adverse consequences, inability to abstain successfully on his own. Withdrawal positive for anxiety, sweats, tremors but there is no document history of DTs or seizures. He has fallen on several occasions while intoxicated. He has never been involved in any formal outpatient treatment or 12-step involvement. At one point in time he was abstinent from alcohol for 2 years but relapsed 6 years ago. He was not involved in any 12-step meetings--- basically stayed sober on his own. Psychiatric history noncontributory. Past medical history is pertinent for hypertension, hypothyroidism,GERD, BPH, neuropathy. 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 Lab studies did demonstrate mild to moderate elevation of LFTs AST 208 ALT 89 bilirubin 0.7. Sodium initially low at 121 but most recent value was 134. Social History Socioeconomic History Marital status: Spouse name: Not on file Number of children: Not on file Years of education: Not on file Highest education level: Not on file Occupational History Not on file Tobacco Use Smoking status: Every Day Types: Cigars Last attempt to quit: 1982 Years since quittin.4 Smokeless tobacco: Former Vaping Use Vaping Use: Every day Substances: CBD, canabis Devices: Disposable Substance and Sexual Activity Alcohol use: Yes Alcohol/week: 42.0 standard drinks of alcohol Types: 42 Cans of beer per week Comment: TALL BOY ARE DOUBLE BEERS 42 per week Drug use: Yes Types: Marijuana Comment: daily Sexual activity: Not on file Other Topics Concern Not on file Social History Narrative Not on file Social Determinants of Health Financial Resource Strain: Not on file Food Insecurity: Not on file Transportation Needs: No Transportation Needs (04/03/2023) PRAPARE - Transportation Lack of Transportation (Medical): No Lack of Transportation (Non-Medical): No Physical Activity: Inactive (04/03/2023) Exercise Vital Sign Days of Exercise per Week: 0 days Minutes of Exercise per Session: 0 min Stress: No Stress Concern Present (04/03/2023) [employer] [place] [employer] - Occupational Stress Questionnaire Feeling of Stress : Not at all Social Connections: Not on file Intimate Partner Violence: Not At Risk (02/11/2023) Humiliation, Afraid, Rape, and Kick questionnaire Fear of Current or Ex-Partner: No Emotionally Abused: No Physically Abused: No Sexually Abused: No Housing Stability: Low Risk (04/03/2023) Housing Stability Vital Sign Unable to Pay for Housing in the Last Year: No Number of Places Lived in the Last Year: 1 Unstable Housing in the Last Year: No 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 Nausea and vomiting 12/22/22-12/26/22 admitted at [facility] Pain management Sleep apnea noncompliant with device Past Surgical History: Procedure Laterality Date BACK SURGERY x 2 CHOLECYSTECTOMY LAMINECTOMY LAP,CHOLECYSTECTOMY (HISTORICAL) N/A 01/05/2023 WISDOM TOOTH EXTRACTION Family History Problem Relation Name Age of Onset Depression Mother Depression Maternal Grandmother Labs Recent Results (from the past 48 hour(s)) CBC auto differential Collection Time: 04/02/23 4:42 PM Result Value Ref Range Auto WBC 2.5 (L) 3.6 - 10.7 10*3/uL RBC 3.33 (L) 4.40 - 5.90 10*6/uL Hemoglobin 11.4 (L) 13.0 - 18.0 g/dL Hematocrit 31.7 (L) 40.0 - 52.0 % MCV 95.2 80.0 - 98.0 fL MCH 34.2 (H) 26.0 - 34.0 pg MCHC 36.0 32.0 - 36.0 % RDW 13.0 11.5 - 14.5 % Platelets 93 (L) 140 - 440 10*3/uL MPV 9.0 7.4 - 12.4 fL Neutrophils Relative 66.2 40.0 - 80.0 % Lymphocytes Relative 28.7 20.0 - 40.0 % Monocytes Relative 4.3 2.0 - 10.0 % Eosinophils Relative 0.0 (L) 1.0 - 6.0 % Basophils Relative 0.0 0.0 - 2.0 % Immature Grans % 0.8 (H) <=0.0 % Neutrophils Absolute 1.7 (L) 1.8 - 7.0 10*3/uL Lymphocytes Absolute 0.7 (L) 1.0 - 4.3 10*3/uL Monocytes Absolute 0.1 0.0 - 0.8 10*3/uL Eosinophils Absolute 0.0 0.0 - 0.5 10*3/uL Basophils Absolute 0.0 0.0 - 0.2 10*3/uL Immature Grans Absolute 0.0 <=0.0 10*3/uL Comprehensive metabolic panel Collection Time: 04/02/23 4:42 PM Result Value Ref Range SODIUM 134 (L) 135 - 145 mmol/L POTASSIUM 4.3 3.5 - 5.1 mmol/L CHLORIDE 100 98 - 107 mmol/L CARBON DIOXIDE 18 (L) 22 - 30 mmol/L ANION GAP 16 (H) 3 - 13 mmol/L UREA NITROGEN 4 (L) 9 - 20 mg/dL CREATININE 0.86 0.66 - 1.25 mg/dL GLUCOSE 111 (H) 70 - 100 mg/dL CALCIUM 8.8 8.4 - 10.4 mg/dL AST (SGOT) 208 (H) 15 - 46 U/L ALT 89 (H) 0 - 49 U/L ALKALINE PHOSPHATASE 79 38 - 126 U/L ALBUMIN 4.3 3.5 - 5.0 g/dL BILIRUBIN, TOTAL 0.7 0.2 - 1.3 mg/dL TOTAL PROTEIN 7.3 6.3 - 8.2 g/dL eGFR >90.0 >60.0 mL/min/1.73m*2 Lipase Collection Time: 04/02/23 4:42 PM Result Value Ref Range LIPASE 365 (H) 23 - 300 U/L C-reactive protein Collection Time: 04/02/23 4:42 PM Result Value Ref Range C REACTIVE PROTEIN <5.0 <10.0 mg/L Ethanol Collection Time: 04/02/23 4:42 PM Result Value Ref Range ETHANOL IN SER/PLAS 0.352 (HH) 0.000 - 0.010 g/dL Complete Urinalysis Collection Time: 04/02/23 5:49 PM Result Value Ref Range Color, Urine Colorless Lt. Yellow Clarity, Urine Clear Clear pH, Urine 5.0 5.0 - 8.0 pH Leukocytes, Urine Negative Negative Emma/uL Nitrite, Urine Negative Negative Protein, Urine Negative Negative mg/dL Glucose, Urine Normal Normal (<70) mg/dL Bilirubin, Urine Negative Negative mg/dL Ketones, Urine Negative Negative mg/dL Urobilinogen, Urine Normal Normal (0-1) mg/dL Blood, Urine Negative Negative mg/dL SPECIFIC GRAVITY OF URINE (NUMERIC) 1.002 (L) 1.005 - 1.030 Drug screen panel, emergency Collection Time: 04/02/23 5:49 PM Result Value Ref Range AMPHETAMINE SCREEN Negative BARBITURATES SCREEN Positive BENZODIAZEPINE SCREEN Negative COCAINE METAB. SCREEN Negative METHADONE SCREEN Negative OPIATES SCREEN Negative OXYCODONE SCREEN Negative PHENCYCLIDINE SCREEN Negative SARS-CoV-2 Antigen Collection Time: 04/02/23 5:51 PM Specimen: Nasal; Swab Result Value Ref Range SARS-CoV-2 Antigen Negative Negative Blood gas, venous ([place]) Collection Time: 04/02/23 6:08 PM Result Value Ref Range pH 7.363 7.330 - 7.430 pCO2 32 (L) 40 - 55 mm(Hg) pO2 168 (H) 30 - 50 mm(Hg) BASE EXCESS -7.0 (L) -3.0 - 3.0 mmol/L HCO3 18.4 (L) 23.0 - 27.0 mmol/L TCO2 19.0 (L) 24.0 - 28.0 mmol/L O2 Saturation 99.0 (H) 60.0 - 80.0 % Source Of Oxygen Room Air Medications Home Meds: Prior to Admission medications Medication Sig Start Date End Date Taking? Authorizing Provider acetaminophen (Tylenol) 325 MG tablet every 4 hours as needed. Historical Provider, albuterol (2.5 MG/3ML) 0.083% nebulizer solution Inhale 2.5 mg. PRN Historical Provider, albuterol 108 (90 Base) MCG/ACT inhaler every 4 hours. Historical Provider, alendronate (Fosamax) 70 MG tablet Take 70 mg by mouth once a week. 05/19/17 Historical Provider, amLODIPine (Norvasc) 2.5 MG tablet Take 2.5 mg by mouth in the morning. 05/27/17 Historical Provider, Bioflavonoid Products (Alana-C) tablet Every 24 hours. Historical Provider, calcium carbonate (Tums) 500 MG chewable tablet Chew 1 tablet (500 mg) daily. Do not start before February 15, 2023. 02/15/23 02/15/24 Kacie Benz DO cyanocobalamin (Vitamin B-12) 1000 MCG/ML injection 1 mL intramuscularly once a month Historical Provider, dicyclomine (Bentyl) 20 MG tablet Take 1 tablet (20 mg) by mouth in the morning and 1 tablet (20 mg) at noon and 1 tablet (20 mg) in the evening. Take before meals. 11/07/22 11/07/23 Beryl Holder PA-C fluticasone (Flonase) 50 MCG/ACT nasal spray Administer 1 spray into affected nostril(s). 04/27/17 Historical ProviderMD ipratropium (Atrovent) 0.02 % nebulizer solution PRN 05/04/17 Historical Provider, ipratropium-albuterol (Duo-Neb) 0.5-2.5 mg/3 mL nebulizer solution every 6 hours. Historical Provider, ketoconazole (NIZOral) 2 % shampoo EVERY THREE DAYS 11/18/19 Historical ProviderMD levothyroxine (Synthroid, Levoxyl) 50 MCG tablet TAKE 1 TABLET BY MOUTH DAILY 06/06/22 06/06/23 Nicolas Kangkrzysztof losartan (Cozaar) 100 MG tablet Take 1 tablet (100 mg) by mouth daily. Do not start before February 15, 2023. 02/15/23 02/15/24 Kacie Benz DO niacin 100 MG tablet Every 24 hours. Historical Provider, nitroglycerin (Nitrostat) 0.4 MG SL tablet 1 tab(s) sublingually every 5 minutes x 3 doses prn Historical Provider, ondansetron (Zofran) 4 MG tablet Every 24 hours. Historical Provider, oxyCODONE (Roxicodone) 10 MG immediate release tablet Take 10 mg by mouth in the morning and 10 mg at noon and 10 mg in the evening and 10 mg before bedtime. 05/29/17 Historical ProviderMD pantoprazole (ProtoNix) 40 MG EC tablet Take 40 mg by mouth daily. Historical Provider, potassium chloride ER (Micro-K) 10 MEQ ER capsule Take 10 mEq by mouth in the morning. 03/30/17 Historical ProviderMD sodium chloride 1 g tablet Take 1 tablet (1 g) by mouth in the morning and 1 tablet (1 g) in the evening. Take with meals. 02/14/23 02/14/24 Kacie Benz DO tamsulosin (Flomax) 0.4 MG 24 hr capsule Take 0.4 mg by mouth daily. 01/27/22 Historical ProviderMD Inpatient Scheduled Meds: amLODIPine, 2.5 mg, Oral, Daily levothyroxine, 50 mcg, Oral, qAM AC losartan, 100 mg, Oral, Daily pantoprazole, 40 mg, Oral, Daily PHENobarbital, 97.2 mg, Oral, Q4H tamsulosin, 0.4 mg, Oral, Daily therapeutic multivitamin-minerals, 1 tablet, Oral, Daily Inpatient PRN Meds: PRN medications: acetaminophen, albuterol, albuterol, aluminum & magnesium hydroxide-simethicone, hydrOXYzine pamoate, loperamide, nitroglycerin, ondansetron ODT, traZODone Exam Vitals: 04/02/23 1846 04/02/23 2230 04/03/23 0532 04/03/23 1116 BP: (!) 134/95 (!) 147/77 139/81 (!) 148/81 BP Location: Left arm Patient Position: Lying Pulse: 94 101 103 98 Resp: 18 17 16 Temp: 36.9 C (98.4 F) 37.9 C (100.2 F) 36.4 C (97.6 F) TempSrc: Temporal SpO2: 100% 98% 96% 95% Weight: Height: Physical Exam Patient bed ridden, disheveled, flushed, diaphoretic. Moderate to marked tremors noted. Very fatigued, slightly sedated. Pleasant, cooperative. Oriented x4 but slow to respond to questions. No auditory, tactile or visual disturbances. Assessment & Plan At this point in time patient remains on phenobarbital for alcohol withdrawal syndrome. As patient stabilizes will investigate treatment options. I did request medical consultation for medical issues noted above including 60 pound weight loss, neuropathy. FLAVIO SHERMAN MD Addiction Medicine 04/03/2023 at 2:07 PM -75-- minutes were spent reviewing the patient's records, evaluating the patient, entering orders, coordinating care with the treatment team, and creating a progress note. documented in this encounter [facility] 04-03-2023 Note Formatting of this n ote might be different from the original. FLIGHT SECURITY SPECIALIST met with patient who was still agreeable to virtual IOP program with [facility] program. Patient signed MALINI. FLIGHT SECURITY SPECIALIST will send referral information for intake appointment. All information will be included in patient's discharge paperwork. [facility] 04-03-2023 Note Formatting of this n ote might be different from the original. FLIGHT SECURITY SPECIALIST met with patient who was still agreeable to virtual IOP program with [facility] program. Patient signed MALINI. FLIGHT SECURITY SPECIALIST will send referral information for intake appointment. All information will be included in patient's discharge paperwork. [facility] 04-03-2023 Hospital Discharge instructions GISSELL Childers - 04/03/2023 9:20 AM EDT After detox you should abstain from any use of any mood altering chemical Appointment with your primary care physician should be scheduled It is highly recommended that you attend post hospital treatment Please read the information give to you - Intro to 12 step programs Call the National Suicide Prevention Hotline if needed at: 0-090-376-TVBM (2280) Please call the following number should you have questions regarding your discharge or aftercare appointments: 4 Psychiatric documented in this encounter [facility] 04-03-2023 Note Formatting of this n ote might be different from the original. Behavioral Health Psycho-Social Assessment (Social Work) Date: 04/03/2023 Patient Name: Woody Ni : 1960 Identifying Information: Patient is a 63-year-old male admitted to for detox from alcohol. Patient is unknown to recommended team as he has not been previously on the unit. Presenting Problem: Patient presented to the ED on 04/02/2023 requesting detox from alcohol. Patient reports that he has been drinking with his last drink occurring on 04/02/2023. Patient reports that epigastric abdominal pain. 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 Patient reports seeing a GI specialist and has been advised to stop drinking. Psychiatric History: Patient reports mental health diagnosis of depression and anxiety. Patient is not currently on any medication for mental health needs. Patient does report previous history of being on Ativan. Patient does not currently engage with any outpatient mental health treatment. Patient not report any past history of outpatient mental health treatment. Patient denies any history of psychiatric admission. Patient denies any recent or past history of suicide attempts. Patient denies any current SI/HI/AVH. Patient does report previous history of passive SI secondary to intoxication. Patient denies plan, intent, or method but reports more increased feelings of sadness and depression. Patient denies any recent or past history of SIB. Substance Abuse/Use: Patient reports that he is currently drinking 6, 24 ounce but ice beers daily. Patient denies any liquor use. Patient reports that his last use was 04/02/2023. Patient's labs are positive for alcohol (0.352). Patient's labs are also positive for barbiturates. Patient reports that he for started drinking alcohol when he was 16 years old. Patient reports his drink became regular/social when he turned 18 years old and enlisted in the [employer]. Patient reports his drink became problematic within his 20s. Patient denies any history of alcohol overdoses, withdrawal seizures, or DTs. Patient does report history of falls while intoxicated including those with head injury. Patient is currently drinking to the point of intoxication, blackouts, and vomiting. Patient denies any history of MAT for substance use disorder, engagement in IOP or AA. Patient reports his longest period of sobriety is 5 to 6 years which ended 2 years ago. Patient denies any previous history of detox or residential treatment. Medical/Self-care Issues: Patient reports medical issues of cirrhosis of the liver. Patient reports struggles with self-care secondary to substance use. Patient reports increasing with frequency and tolerance over time. Patient also reports struggling to recover from the effects of substance use. Patient reports experiencing poor hygiene, sleep, and nutrition secondary to substance use disorder. Legal/Trauma/ History: Patient denies any current or past legal issues. Patient denies any history of trauma abuse as an adolescent. Patient denies any history of trauma or abuse as an adult. Patient is a [employer] . Patient reports having a listed shortly after turning 18 years old. Patient reports he was stationed 5 miles from [facility] in . Patient reports having an honorable discharge. Family Constellation/Childhood History: Patient reports he is currently living in [place] patient denies have any biological children. Patient reports having 3 stepchildren whom he has help to raise. [place] with his longtime girlfriend. Patient has a previous history of divorce. Patient reports that he has 2 sisters whom he maintains a relationship with. Patient reports that his mother . Patient reports his 86-year-old father currently lives with one of his sisters. Patient reports that he grew up in [facility] by his biological mother and father. Patient denies any history of adolescent childhood trauma or abuse. 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 Patient is currently unemployed and receives SSI/SSD. Cultural/Spirituality/Leisure: Patient denies any cultural needs or concerns at the current time. Patient denies identify any yazdanism preference at current time. Patient is not attending services anywhere. Patient reports in his leisure time he enjoys watching [place] [employer] sports and football. Support Systems/Collateral Information: Patient reports that his girlfriend is his primary social support. Patient reports that she is sober and supportive of all of his recovery efforts and needs. Patient reports that she is aware that he was admitted to the hospital. C-SSRS Actual Attempt (Past 3 Months): No (Patient denies any history of psychiatric admission. Patient denies any recent history of suicide attempts.) Actual Attempt (Lifetime): No (Patient denies any past history of suicide attempts.) Interrupted Attempts (Past 3 Months): No (Patient denies) Interrupted Attempts (Lifetime): No (Patient denies) Aborted or Self-Interrupted Attempt (Past 3 Months): No (Patient denies) Aborted or Self-Interrupted Attempt (Lifetime): No (Patient denies) Preparatory Acts or Behavior (Past 3 Months): No (Patient denies) Preparatory Acts or Behavior (Lifetime): No (Patient denies) Has subject engaged in non-suicidal self-injurious behavior? (Past 3 Months): No (Patient denies any recent history of SIB.) Has subject engaged in non-suicidal self-injurious behavior? (Lifetime): No (Patient denies any past history of SIB.) Suicidal Ideation: (Patient denies any current SI/HI/AVH. Patient does report previous history of passive SI secondary to intoxication. Patient denies plan, intent, or method but reports more increased feelings of sadness and depression.) Activating Events (Recent): Recent loss(es) or other significant negative event(s) (legal, financial, relationship, etc.) Describe:: Ongoing struggles with substance use disorder. Treatment History: Previous psychiatric diagnoses and treatments, Not receiving treatment (Patient reports mental health diagnosis of depression and anxiety. Patient is not currently on any medication for mental health needs. Patient does report previous history of being on Ativan. Patient does not currently engage with any OP MH Tx) Clinical Status (Recent): Hopelessness, Major depressive episode, Substance abuse or dependence, Agitation or severe anxiety, Highly impulsive behavior, Perceived burden on family or others, Chronic physical pain or other acute medical problem (HIV/AIDS, COPD, cancer, etc.) (Risk factors) Protective Factors (Recent): Identifies reasons for living, Responsibility to family or others and/or living with family, Supportive social network or family (Protective factors) Describe any suicidal, self-injurious or aggressive behavior (include dates): Patient denies any history of psychiatric admission. Patient denies any recent or past history of suicide attempts. Patient denies any current SI/HI/AVH. Patient does report previous history of passive SI secondary to intoxication. Patient denies plan, intent, or method but reports more increased feelings of sadness and depression. Patient denies any recent or past history of SIB. Patient reports mental health diagnosis of depression and anxiety. Patient is not currently on any medication for mental health needs. Patient does report previous history of being on Ativan. Patient does not currently engage with any outpatient mental health treatment. Patient not report any past history of outpatient mental health treatment. Plan: Patient reports having some limitations with outpatient treatment due to transportation issues. Patient and FLIGHT SECURITY SPECIALIST discussed alternative options in the community that provide virtual assessment and IOP services. Patient is interested in the services and willing to engage in them. FLIGHT SECURITY SPECIALIST will assist patient with scheduling aftercare appointments. Patient encouraged to engage in activities that are offered and ways in the unit. Patient not report anything additional at current time. Patient encouraged to seek out FLIGHT SECURITY SPECIALIST unit staff should he identify any additional needs or concerns. Comment: Please note this report has been produced using speech recognition software and may contain errors related to that system including errors in grammar, punctuation, and spelling, as well as words and phrases that may be inappropriate. If there are any questions or concerns please feel free to contact the dictating provider for clarification. [facility] 04-03-2023 Note Formatting of this n ote might be different from the original. Behavioral Health Psycho-Social Assessment (Social Work) Date: 04/03/2023 Patient Name: Woody Ni : 1960 Identifying Information: Patient is a 63-year-old male admitted to E4 for detox from alcohol. Patient is unknown to recommended team as he has not been previously on the unit. Presenting Problem: Patient presented to the ED on 04/02/2023 requesting detox from alcohol. Patient reports that he has been drinking with his last drink occurring on 04/02/2023. Patient reports that epigastric abdominal pain. 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 Patient reports seeing a GI specialist and has been advised to stop drinking. Psychiatric History: Patient reports mental health diagnosis of depression and anxiety. Patient is not currently on any medication for mental health needs. Patient does report previous history of being on Ativan. Patient does not currently engage with any outpatient mental health treatment. Patient not report any past history of outpatient mental health treatment. Patient denies any history of psychiatric admission. Patient denies any recent or past history of suicide attempts. Patient denies any current SI/HI/AVH. Patient does report previous history of passive SI secondary to intoxication. Patient denies plan, intent, or method but reports more increased feelings of sadness and depression. Patient denies any recent or past history of SIB. Substance Abuse/Use: Patient reports that he is currently drinking 6, 24 ounce but ice beers daily. Patient denies any liquor use. Patient reports that his last use was 04/02/2023. Patient's labs are positive for alcohol (0.352). Patient's labs are also positive for barbiturates. Patient reports that he for started drinking alcohol when he was 16 years old. Patient reports his drink became regular/social when he turned 18 years old and enlisted in the [employer]. Patient reports his drink became problematic within his 20s. Patient denies any history of alcohol overdoses, withdrawal seizures, or DTs. Patient does report history of falls while intoxicated including those with head injury. Patient is currently drinking to the point of intoxication, blackouts, and vomiting. Patient denies any history of MAT for substance use disorder, engagement in IOP or AA. Patient reports his longest period of sobriety is 5 to 6 years which ended 2 years ago. Patient denies any previous history of detox or residential treatment. Medical/Self-care Issues: Patient reports medical issues of cirrhosis of the liver. Patient reports struggles with self-care secondary to substance use. Patient reports increasing with frequency and tolerance over time. Patient also reports struggling to recover from the effects of substance use. Patient reports experiencing poor hygiene, sleep, and nutrition secondary to substance use disorder. Legal/Trauma/ History: Patient denies any current or past legal issues. Patient denies any history of trauma abuse as an adolescent. Patient denies any history of trauma or abuse as an adult. Patient is a [employer] . Patient reports having a listed shortly after turning 18 years old. Patient reports he was stationed 5 miles from [facility] in . Patient reports having an honorable discharge. Family Constellation/Childhood History: Patient reports he is currently living in [place] patient denies have any biological children. Patient reports having 3 stepchildren whom he has help to raise. [place] with his longtime girlfriend. Patient has a previous history of divorce. Patient reports that he has 2 sisters whom he maintains a relationship with. Patient reports that his mother . Patient reports his 86-year-old father currently lives with one of his sisters. Patient reports that he grew up in [facility] by his biological mother and father. Patient denies any history of adolescent childhood trauma or abuse. 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 Patient is currently unemployed and receives SSI/SSD. Cultural/Spirituality/Leisure: Patient denies any cultural needs or concerns at the current time. Patient denies identify any yazdanism preference at current time. Patient is not attending services anywhere. Patient reports in his leisure time he enjoys watching [place] [employer] sports and football. Support Systems/Collateral Information: Patient reports that his girlfriend is his primary social support. Patient reports that she is sober and supportive of all of his recovery efforts and needs. Patient reports that she is aware that he was admitted to the hospital. C-SSRS Actual Attempt (Past 3 Months): No (Patient denies any history of psychiatric admission. Patient denies any recent history of suicide attempts.) Actual Attempt (Lifetime): No (Patient denies any past history of suicide attempts.) Interrupted Attempts (Past 3 Months): No (Patient denies) Interrupted Attempts (Lifetime): No (Patient denies) Aborted or Self-Interrupted Attempt (Past 3 Months): No (Patient denies) Aborted or Self-Interrupted Attempt (Lifetime): No (Patient denies) Preparatory Acts or Behavior (Past 3 Months): No (Patient denies) Preparatory Acts or Behavior (Lifetime): No (Patient denies) Has subject engaged in non-suicidal self-injurious behavior? (Past 3 Months): No (Patient denies any recent history of SIB.) Has subject engaged in non-suicidal self-injurious behavior? (Lifetime): No (Patient denies any past history of SIB.) Suicidal Ideation: (Patient denies any current SI/HI/AVH. Patient does report previous history of passive SI secondary to intoxication. Patient denies plan, intent, or method but reports more increased feelings of sadness and depression.) Activating Events (Recent): Recent loss(es) or other significant negative event(s) (legal, financial, relationship, etc.) Describe:: Ongoing struggles with substance use disorder. Treatment History: Previous psychiatric diagnoses and treatments, Not receiving treatment (Patient reports mental health diagnosis of depression and anxiety. Patient is not currently on any medication for mental health needs. Patient does report previous history of being on Ativan. Patient does not currently engage with any OP MH Tx) Clinical Status (Recent): Hopelessness, Major depressive episode, Substance abuse or dependence, Agitation or severe anxiety, Highly impulsive behavior, Perceived burden on family or others, Chronic physical pain or other acute medical problem (HIV/AIDS, COPD, cancer, etc.) (Risk factors) Protective Factors (Recent): Identifies reasons for living, Responsibility to family or others and/or living with family, Supportive social network or family (Protective factors) Describe any suicidal, self-injurious or aggressive behavior (include dates): Patient denies any history of psychiatric admission. Patient denies any recent or past history of suicide attempts. Patient denies any current SI/HI/AVH. Patient does report previous history of passive SI secondary to intoxication. Patient denies plan, intent, or method but reports more increased feelings of sadness and depression. Patient denies any recent or past history of SIB. Patient reports mental health diagnosis of depression and anxiety. Patient is not currently on any medication for mental health needs. Patient does report previous history of being on Ativan. Patient does not currently engage with any outpatient mental health treatment. Patient not report any past history of outpatient mental health treatment. Plan: Patient reports having some limitations with outpatient treatment due to transportation issues. Patient and FLIGHT SECURITY SPECIALIST discussed alternative options in the community that provide virtual assessment and IOP services. Patient is interested in the services and willing to engage in them. FLIGHT SECURITY SPECIALIST will assist patient with scheduling aftercare appointments. Patient encouraged to engage in activities that are offered and ways in the unit. Patient not report anything additional at current time. Patient encouraged to seek out FLIGHT SECURITY SPECIALIST unit staff should he identify any additional needs or concerns. Comment: Please note this report has been produced using speech recognition software and may contain errors related to that system including errors in grammar, punctuation, and spelling, as well as words and phrases that may be inappropriate. If there are any questions or concerns please feel free to contact the dictating provider for clarification. [facility] 04-03-2023 Nurse Note Pt alert and oriented, med compliant, pt complains of poor sleep through the night, pt denies SI/HI/AVH, N&V. Pt complains of diarrhea, back pain, tremors, and anxiety. Pt medicated with phenobarbitol, tylenol, zofran, vistaril, and imodium, will reevaluate effectiveness. Pt back to bed to rest, lunch ordered at 1000 1000- pt states vistaril, zofran, tylenol and imodium were effective. 1144 Pt complains of diarrhea, medicated with imodium. 1244- Pts diarrhea resolved at this time. 1500- Pt complains of indigestion medicated with maalox 1600- Maalox effective at this time. 1733- Maalox given for indigestion and imodium given for diarrhea 1833- Maalox and imodium effective Pt encouraged to update staff with any change in condition. Will monitor pt for safety. T [facility] 04-02-2023 Emergency department Note Patient left with Physician's crew. Ruperto Velazquez RN 04/02/232058 [facility] 04-02-2023 Emergency department Note Patient left with Physician's crew. Ruperto Velazquez RN 04/02/232058 Warm blanket to patient. Ruperto Velazquez RN 04/02/232040 Patient's belongings inventoried by life science technical officer. Ruperto Velazquez RN 04/02/232014 Report to 4E. Ruperto Velazquez RN 04/02/232014 [facility] gave ETA Ruperto Velazquez RN 04/02/231950 Phone to patient. Ruperto Velazquez RN 04/02/231910 Report from dayshift Rns. Pt. Resting, no distress noted. Ruperto Velazquez RN 04/02/231910 Lab called with panic ETOH 0.352. Dr. Bermudez aware mEilee Gonzalez, MEGGAN 04/02/23 1714 Patient up to bathroom, and back to bed. Ophelia Schultz RN 04/02/23 1641 EMERGENCY DEPARTMENT ENCOUNTER Pt Name: Woody Ni Birthdate 1960 Date of evaluation: 04/02/2023 CHIEF COMPLAINT Chief Complaint Patient presents with Alcohol Problem HISTORY OF PRESENT ILLNESS History provided by: Patient and friend Woody Ni is a 63 y.o. male who presents to the emergency department reporting he wants detox from alcohol. He reports he has been drinking alcohol including today. He reports some epigastric abdominal pain. He reports that pain is from alcoholic cirrhosis. He reports he has seen a GI specialist for that and has been advised to stop drinking. He has been vomiting. He has been having diarrhea. REVIEW OF SYSTEMS Review of Systems CURRENT MEDICATIONS Previous Medications ACETAMINOPHEN (TYLENOL) 325 MG TABLET every 4 hours as needed. ALBUTEROL (2.5 MG/3ML) 0.083% NEBULIZER SOLUTION Inhale 2.5 mg. PRN ALBUTEROL 108 (90 BASE) MCG/ACT INHALER every 4 hours. ALENDRONATE (FOSAMAX) 70 MG TABLET Take 70 mg by mouth once a week. AMLODIPINE (NORVASC) 2.5 MG TABLET Take 2.5 mg by mouth in the morning. BIOFLAVONOID PRODUCTS (ALANA-C) TABLET Every 24 hours. CALCIUM CARBONATE (TUMS) 500 MG CHEWABLE TABLET Chew 1 tablet (500 mg) daily. Do not start before February 15, 2023. CYANOCOBALAMIN (VITAMIN B-12) 1000 MCG/ML INJECTION 1 mL intramuscularly once a month DICYCLOMINE (BENTYL) 20 MG TABLET Take 1 tablet (20 mg) by mouth in the morning and 1 tablet (20 mg) at noon and 1 tablet (20 mg) in the evening. Take before meals. FLUTICASONE (FLONASE) 50 MCG/ACT NASAL SPRAY Administer 1 spray into affected nostril(s). IPRATROPIUM (ATROVENT) 0.02 % NEBULIZER SOLUTION PRN IPRATROPIUM-ALBUTEROL (DUO-NEB) 0.5-2.5 MG/3 ML NEBULIZER SOLUTION every 6 hours. KETOCONAZOLE (NIZORAL) 2 % SHAMPOO EVERY THREE DAYS LEVOTHYROXINE (SYNTHROID, LEVOXYL) 50 MCG TABLET TAKE 1 TABLET BY MOUTH DAILY LOSARTAN (COZAAR) 100 MG TABLET Take 1 tablet (100 mg) by mouth daily. Do not start before February 15, 2023. NIACIN 100 MG TABLET Every 24 hours. NITROGLYCERIN (NITROSTAT) 0.4 MG SL TABLET 1 tab(s) sublingually every 5 minutes x 3 doses prn ONDANSETRON (ZOFRAN) 4 MG TABLET Every 24 hours. OXYCODONE (ROXICODONE) 10 MG IMMEDIATE RELEASE TABLET Take 10 mg by mouth in the morning and 10 mg at noon and 10 mg in the evening and 10 mg before bedtime. PANTOPRAZOLE (PROTONIX) 40 MG EC TABLET Take 40 mg by mouth daily. POTASSIUM CHLORIDE ER (MICRO-K) 10 MEQ ER CAPSULE Take 10 mEq by mouth in the morning. SODIUM CHLORIDE 1 G TABLET Take 1 tablet (1 g) by mouth in the morning and 1 tablet (1 g) in the evening. Take with meals. TAMSULOSIN (FLOMAX) 0.4 MG 24 HR CAPSULE Take 0.4 mg by mouth daily. ALLERGIES Allopurinol, Codeine, and Penicillin g FAMILY HISTORY Family History Problem Relation Name Age of Onset Depression Mother Depression Maternal Grandmother SOCIAL HISTORY Social History Socioeconomic History Marital status: Tobacco Use Smoking status: Every Day Types: Cigars Last attempt to quit: 1983 Years since quittin.4 Smokeless tobacco: Former Vaping Use Vaping Use: Every day Substances: CBD, canabis Devices: Disposable Substance and Sexual Activity Alcohol use: Yes Alcohol/week: 42.0 standard drinks of alcohol Types: 42 Cans of beer per week Comment: TALL BOY ARE DOUBLE BEERS 42 per week Drug use: Yes Types: Marijuana Comment: daily Social Determinants of Health Transportation Needs: No Transportation Needs (02/11/2023) PRAPARE - Transportation Lack of Transportation (Medical): No Lack of Transportation (Non-Medical): No Intimate Partner Violence: Not At Risk (02/11/2023) Humiliation, Afraid, Rape, and Kick questionnaire Fear of Current or Ex-Partner: No Emotionally Abused: No Physically Abused: No Sexually Abused: No Housing Stability: Low Risk (02/11/2023) Housing Stability Vital Sign Unable to Pay for Housing in the Last Year: No Number of Places Lived in the Last Year: 1 Unstable Housing in the Last Year: No PHYSICAL EXAM Vitals: 04/02/23 1647 04/02/23 1659 04/02/23 1717 04/02/23 1846 BP: 127/81 127/81 131/80 (!) 134/95 Pulse: 98 92 80 94 Resp: 14 15 Temp: TempSrc: SpO2: 100% 100% 100% 100% Weight: Height: Physical Exam Vitals and nursing note reviewed. Constitutional: General: He is in acute distress. Appearance: He is normal weight. He is ill-appearing. HENT: Head: Atraumatic. Cardiovascular: Rate and Rhythm: Regular rhythm. Tachycardia present. Heart sounds: Normal heart sounds. Pulmonary: Effort: Pulmonary effort is normal. Breath sounds: Normal breath sounds. Abdominal: General: Bowel sounds are normal. There is no distension. Palpations: Abdomen is soft. Tenderness: There is no abdominal tenderness. There is no right CVA tenderness, left CVA tenderness, guarding or rebound. Hernia: No hernia is present. Musculoskeletal: Right lower leg: No tenderness. No edema. Left lower leg: No tenderness. No edema. Skin: General: Skin is warm. Neurological: Mental Status: He is alert and oriented to person, place, and time. Cranial Nerves: Cranial nerves 2-12 are intact. Sensory: Sensation is intact. Motor: Motor function is intact. Gait: Gait is intact. Deep Tendon Reflexes: Reflexes are normal and symmetric. Psychiatric: Attention and Perception: Perception normal. Speech: Speech is slurred. Behavior: Behavior normal. Thought Content: Thought content normal. SCREENINGS Medical decision making Medical Decision Making Problems Addressed: Alcohol use disorder: complicated acute illness or injury Amount and/or Complexity of Data Reviewed Labs: ordered. Radiology: ordered. Risk OTC drugs. Prescription drug management. Decision regarding hospitalization. DIAGNOSTIC RESULTS Procedures/EKG: Physician EKG interpretation can be found in [facility] if done RADIOLOGY (Per Emergency Physician): Interpretation per the Radiologist below, if available at the time of this note: XR abdomen 2 views w chest 1 view Final Result 1. No acute finding. Possible ingested pill or other foreign body lower right hemipelvis. Report Dictated on Electronically Signed By: Ruperto Wheeler Electronically Signed Date/Time: 04/02/2023 6:15 PM EDT US abdomen complete Final Result 1. Diffuse hepatic steatosis. No acute finding. Report Dictated on Electronically Signed By: Ruperto Wheeler Electronically Signed Date/Time: 04/02/2023 5:54 PM EDT LABS: Labs Reviewed CBC WITH AUTO DIFFERENTIAL - Abnormal Result Value Auto WBC 2.5 (*) RBC 3.33 (*) Hemoglobin 11.4 (*) Hematocrit 31.7 (*) MCV 95.2 MCH 34.2 (*) MCHC 36.0 RDW 13.0 Platelets 93 (*) MPV 9.0 Neutrophils Relative 66.2 Lymphocytes Relative 28.7 Monocytes Relative 4.3 Eosinophils Relative 0.0 (*) Basophils Relative 0.0 Immature Grans % 0.8 (*) Neutrophils Absolute 1.7 (*) Lymphocytes Absolute 0.7 (*) Monocytes Absolute 0.1 Eosinophils Absolute 0.0 Basophils Absolute 0.0 Immature Grans Absolute 0.0 COMPREHENSIVE METABOLIC PANEL - Abnormal SODIUM 134 (*) POTASSIUM 4.3 CHLORIDE 100 CARBON DIOXIDE 18 (*) ANION GAP 16 (*) UREA NITROGEN 4 (*) CREATININE 0.86 GLUCOSE 111 (*) CALCIUM 8.8 AST (SGOT) 208 (*) ALT 89 (*) ALKALINE PHOSPHATASE 79 ALBUMIN 4.3 BILIRUBIN, TOTAL 0.7 TOTAL PROTEIN 7.3 eGFR >90.0 LIPASE - Abnormal LIPASE 365 (*) COMPLETE URINALYSIS - Abnormal Color, Urine Colorless Clarity, Urine Clear pH, Urine 5.0 Leukocytes, Urine Negative Nitrite, Urine Negative Protein, Urine Negative Glucose, Urine Normal Bilirubin, Urine Negative Ketones, Urine Negative Urobilinogen, Urine Normal Blood, Urine Negative SPECIFIC GRAVITY OF URINE (NUMERIC) 1.002 (*) ETHANOL - Abnormal ETHANOL IN SER/PLAS 0.352 (*) Narrative: NOTE: This result is for medical treatment only. Analysis performed using non-forensic procedures. BLOOD GAS, VENOUS (SWR AND [facility]) - Abnormal pH 7.363 pCO2 32 (*) pO2 168 (*) BASE EXCESS -7.0 (*) HCO3 18.4 (*) TCO2 19.0 (*) O2 Saturation 99.0 (*) Source Of Oxygen Room Air SARS-COV-2 ANTIGEN - Normal SARS-CoV-2 Antigen Negative C-REACTIVE PROTEIN - Normal C REACTIVE PROTEIN <5.0 COMPLETE URINALYSIS WITH REFLEX TO CULTURE Narrative: The following orders were created for panel order Urinalysis Complete with reflex to Culture. Procedure Abnormality Status --------- ------ Complete Urinalysis[[id number]] Abnormal Final result Please view results for these tests on the individual orders. DRUGS OF ABUSE Medications ordered: Medications lactated ringers bolus 1,000 mL ( IntraVENous Stopped 04/02/231748) PHENobarbital (Luminal) injection 220 mg (220 mg IntraVENous Given 04/02/231649) prochlorperazine (Compazine) injection 10 mg (10 mg IntraVENous Given 04/02/231653) famotidine (Pepcid) injection 20 mg (20 mg IntraVENous Given 04/02/231656) folic acid (Folvite) tablet 1 mg (1 mg Oral Given 04/02/231740) Thiamine Mononitrate (Vitamin B1) tablet 100 mg (100 mg Oral Given 04/02/231740) Diagnoses as of 04/02/231935 Alcohol use disorder Alcohol withdrawal syndrome without complication (HCC) * No order type specified * REVAL: CRITICAL CARE TIME CONSULTS: None PROCEDURES: Procedures FINAL IMPRESSION 1. Alcohol use disorder DISPOSITION/PLAN DISPOSITION Admit 04/02/2023 06:59:59 PM Case was discussed with MAXWELL Tam and patient was accepted for hospitalization to the detox unit thank you PATIENT REFERRED TO: No follow-up provider specified. I prescribed: New Prescriptions No medications on file (Comment: this report has been produced using speech recognition software and may contain errors related to that system including errors in grammar, punctuation, and spelling, as well as words and phrases that may be inappropriate) JOSÉ LUIS BERMUDEZ MD (electronically signed) José Luis Bermudez MD 04/02/231899 Pt comes to ed asking for alcohol detox claiming his pcp told him to come in because of his severe liver cirrhosis. Pt claims he drinks so much due to uncontrolled pain management in back due to injuries in the past. Pt also states he gets marijuana from his sons medical marijuana prescription. Pt's last drink was 15min prior to admission and he states he drinks 12-18 beers a day. Report to 4E. Ruperto Velazquez RN 04/02/232013 documented in this encounter [facility] 04-02-2023 Emergency department Note Warm blanket to patient. Ruperto Velazquez RN 04/02/232040 [facility] 04-02-2023 Emergency department Note Patient's belongings inventoried by life science technical officer. Ruperto Velazquez RN 04/02/232014 [facility] 04-02-2023 Emergency department Note Report to 4E. Ruperto Velazquez RN 04/02/232014 [facility] 04-02-2023 Emergency department Note [facility] gave ETA Ruperto Velazquez RN 04/02/231950 [facility] 04-02-2023 Emergency department Note Phone to patient. Ruperto Velazquez RN 04/02/231910 [facility] 04-02-2023 Emergency department Note Report from dayshift Rns. Pt. Resting, no distress noted. Ruperto Velazquez RN 04/02/23 1911 [facility] 04-02-2023 Note NOTE: This result is for medical treatment only. Analysis performed using non-forensic procedures. [facility] 04-02-2023 Emergency department Note Lab called with panic ETOH 0.352. Dr. Bermudez aware Emilee Gonzalez RN 04/02/23 1714 [facility] 04-02-2023 Emergency department Note Patient up to bathroom, and back to bed. Ophelia Schultz RN 04/02/23 1641 [facility] 04-02-2023 Emergency department Triage note Pt comes to ed asking for alcohol detox claiming his pcp told him to come in because of his severe liver cirrhosis. Pt claims he drinks so much due to uncontrolled pain management in back due to injuries in the past. Pt also states he gets marijuana from his sons medical marijuana prescription. Pt's last drink was 15min prior to admission and he states he drinks 12-18 beers a day. [facility] 04-02-2023 Physician Emergency department Note EMERGENCY DEPARTMENT ENCOUNTER Pt Name: Woody Ni Birthdate 1960 Date of evaluation: 04/02/2023 CHIEF COMPLAINT Chief Complaint Patient presents with Alcohol Problem HISTORY OF PRESENT ILLNESS History provided by: Patient and friend Woody Ni is a 63 y.o. male who presents to the emergency department reporting he wants detox from alcohol. He reports he has been drinking alcohol including today. He reports some epigastric abdominal pain. He reports that pain is from alcoholic cirrhosis. He reports he has seen a GI specialist for that and has been advised to stop drinking. He has been vomiting. He has been having diarrhea. REVIEW OF SYSTEMS Review of Systems CURRENT MEDICATIONS Previous Medications ACETAMINOPHEN (TYLENOL) 325 MG TABLET every 4 hours as needed. ALBUTEROL (2.5 MG/3ML) 0.083% NEBULIZER SOLUTION Inhale 2.5 mg. PRN ALBUTEROL 108 (90 BASE) MCG/ACT INHALER every 4 hours. ALENDRONATE (FOSAMAX) 70 MG TABLET Take 70 mg by mouth once a week. AMLODIPINE (NORVASC) 2.5 MG TABLET Take 2.5 mg by mouth in the morning. BIOFLAVONOID PRODUCTS (ALANA-C) TABLET Every 24 hours. CALCIUM CARBONATE (TUMS) 500 MG CHEWABLE TABLET Chew 1 tablet (500 mg) daily. Do not start before February 15, 2023. CYANOCOBALAMIN (VITAMIN B-12) 1000 MCG/ML INJECTION 1 mL intramuscularly once a month DICYCLOMINE (BENTYL) 20 MG TABLET Take 1 tablet (20 mg) by mouth in the morning and 1 tablet (20 mg) at noon and 1 tablet (20 mg) in the evening. Take before meals. FLUTICASONE (FLONASE) 50 MCG/ACT NASAL SPRAY Administer 1 spray into affected nostril(s). IPRATROPIUM (ATROVENT) 0.02 % NEBULIZER SOLUTION PRN IPRATROPIUM-ALBUTEROL (DUO-NEB) 0.5-2.5 MG/3 ML NEBULIZER SOLUTION every 6 hours. KETOCONAZOLE (NIZORAL) 2 % SHAMPOO EVERY THREE DAYS LEVOTHYROXINE (SYNTHROID, LEVOXYL) 50 MCG TABLET TAKE 1 TABLET BY MOUTH DAILY LOSARTAN (COZAAR) 100 MG TABLET Take 1 tablet (100 mg) by mouth daily. Do not start before February 15, 2023. NIACIN 100 MG TABLET Every 24 hours. NITROGLYCERIN (NITROSTAT) 0.4 MG SL TABLET 1 tab(s) sublingually every 5 minutes x 3 doses prn ONDANSETRON (ZOFRAN) 4 MG TABLET Every 24 hours. OXYCODONE (ROXICODONE) 10 MG IMMEDIATE RELEASE TABLET Take 10 mg by mouth in the morning and 10 mg at noon and 10 mg in the evening and 10 mg before bedtime. PANTOPRAZOLE (PROTONIX) 40 MG EC TABLET Take 40 mg by mouth daily. POTASSIUM CHLORIDE ER (MICRO-K) 10 MEQ ER CAPSULE Take 10 mEq by mouth in the morning. SODIUM CHLORIDE 1 G TABLET Take 1 tablet (1 g) by mouth in the morning and 1 tablet (1 g) in the evening. Take with meals. TAMSULOSIN (FLOMAX) 0.4 MG 24 HR CAPSULE Take 0.4 mg by mouth daily. ALLERGIES Allopurinol, Codeine, and Penicillin g FAMILY HISTORY Family History Problem Relation Name Age of Onset Depression Mother Depression Maternal Grandmother SOCIAL HISTORY Social History Socioeconomic History Marital status: Tobacco Use Smoking status: Every Day Types: Cigars Last attempt to quit: 1982 Years since quittin.4 Smokeless tobacco: Former Vaping Use Vaping Use: Every day Substances: CBD, canabis Devices: Disposable Substance and Sexual Activity Alcohol use: Yes Alcohol/week: 42.0 standard drinks of alcohol Types: 42 Cans of beer per week Comment: TALL BOY ARE DOUBLE BEERS 42 per week Drug use: Yes Types: Marijuana Comment: daily Social Determinants of Health Transportation Needs: No Transportation Needs (02/11/2023) PRAPARE - Transportation Lack of Transportation (Medical): No Lack of Transportation (Non-Medical): No Intimate Partner Violence: Not At Risk (02/11/2023) Humiliation, Afraid, Rape, and Kick questionnaire Fear of Current or Ex-Partner: No Emotionally Abused: No Physically Abused: No Sexually Abused: No Housing Stability: Low Risk (02/11/2023) Housing Stability Vital Sign Unable to Pay for Housing in the Last Year: No Number of Places Lived in the Last Year: 1 Unstable Housing in the Last Year: No PHYSICAL EXAM Vitals: 04/02/23 1647 04/02/23 1659 04/02/23 1717 04/02/23 1846 BP: 127/81 127/81 131/80 (!) 134/95 Pulse: 98 92 80 94 Resp: 14 15 Temp: TempSrc: SpO2: 100% 100% 100% 100% Weight: Height: Physical Exam Vitals and nursing note reviewed. Constitutional: General: He is in acute distress. Appearance: He is normal weight. He is ill-appearing. HENT: Head: Atraumatic. Cardiovascular: Rate and Rhythm: Regular rhythm. Tachycardia present. Heart sounds: Normal heart sounds. Pulmonary: Effort: Pulmonary effort is normal. Breath sounds: Normal breath sounds. Abdominal: General: Bowel sounds are normal. There is no distension. Palpations: Abdomen is soft. Tenderness: There is no abdominal tenderness. There is no right CVA tenderness, left CVA tenderness, guarding or rebound. Hernia: No hernia is present. Musculoskeletal: Right lower leg: No tenderness. No edema. Left lower leg: No tenderness. No edema. Skin: General: Skin is warm. Neurological: Mental Status: He is alert and oriented to person, place, and time. Cranial Nerves: Cranial nerves 2-12 are intact. Sensory: Sensation is intact. Motor: Motor function is intact. Gait: Gait is intact. Deep Tendon Reflexes: Reflexes are normal and symmetric. Psychiatric: Attention and Perception: Perception normal. Speech: Speech is slurred. Behavior: Behavior normal. Thought Content: Thought content normal. SCREENINGS Medical decision making Medical Decision Making Problems Addressed: Alcohol use disorder: complicated acute illness or injury Amount and/or Complexity of Data Reviewed Labs: ordered. Radiology: ordered. Risk OTC drugs. Prescription drug management. Decision regarding hospitalization. DIAGNOSTIC RESULTS Procedures/EKG: Physician EKG interpretation can be found in [facility] if done RADIOLOGY (Per Emergency Physician): Interpretation per the Radiologist below, if available at the time of this note: XR abdomen 2 views w chest 1 view Final Result 1. No acute finding. Possible ingested pill or other foreign body lower right hemipelvis. Report Dictated on Electronically Signed By: Ruperto Wheeler Electronically Signed Date/Time: 04/02/2023 6:15 PM EDT US abdomen complete Final Result 1. Diffuse hepatic steatosis. No acute finding. Report Dictated on Electronically Signed By: Ruperto Wheeler Electronically Signed Date/Time: 04/02/2023 5:54 PM EDT LABS: Labs Reviewed CBC WITH AUTO DIFFERENTIAL - Abnormal Result Value Auto WBC 2.5 (*) RBC 3.33 (*) Hemoglobin 11.4 (*) Hematocrit 31.7 (*) MCV 95.2 MCH 34.2 (*) MCHC 36.0 RDW 13.0 Platelets 93 (*) MPV 9.0 Neutrophils Relative 66.2 Lymphocytes Relative 28.7 Monocytes Relative 4.3 Eosinophils Relative 0.0 (*) Basophils Relative 0.0 Immature Grans % 0.8 (*) Neutrophils Absolute 1.7 (*) Lymphocytes Absolute 0.7 (*) Monocytes Absolute 0.1 Eosinophils Absolute 0.0 Basophils Absolute 0.0 Immature Grans Absolute 0.0 COMPREHENSIVE METABOLIC PANEL - Abnormal SODIUM 134 (*) POTASSIUM 4.3 CHLORIDE 100 CARBON DIOXIDE 18 (*) ANION GAP 16 (*) UREA NITROGEN 4 (*) CREATININE 0.86 GLUCOSE 111 (*) CALCIUM 8.8 AST (SGOT) 208 (*) ALT 89 (*) ALKALINE PHOSPHATASE 79 ALBUMIN 4.3 BILIRUBIN, TOTAL 0.7 TOTAL PROTEIN 7.3 eGFR >90.0 LIPASE - Abnormal LIPASE 365 (*) COMPLETE URINALYSIS - Abnormal Color, Urine Colorless Clarity, Urine Clear pH, Urine 5.0 Leukocytes, Urine Negative Nitrite, Urine Negative Protein, Urine Negative Glucose, Urine Normal Bilirubin, Urine Negative Ketones, Urine Negative Urobilinogen, Urine Normal Blood, Urine Negative SPECIFIC GRAVITY OF URINE (NUMERIC) 1.002 (*) ETHANOL - Abnormal ETHANOL IN SER/PLAS 0.352 (*) Narrative: NOTE: This result is for medical treatment only. Analysis performed using non-forensic procedures. BLOOD GAS, VENOUS ([facility]) - Abnormal pH 7.363 pCO2 32 (*) pO2 168 (*) BASE EXCESS -7.0 (*) HCO3 18.4 (*) TCO2 19.0 (*) O2 Saturation 99.0 (*) Source Of Oxygen Room Air SARS-COV-2 ANTIGEN - Normal SARS-CoV-2 Antigen Negative C-REACTIVE PROTEIN - Normal C REACTIVE PROTEIN <5.0 COMPLETE URINALYSIS WITH REFLEX TO CULTURE Narrative: The following orders were created for panel order Urinalysis Complete with reflex to Culture. Procedure Abnormality Status --------- ------ Complete Urinalysis[[id number]] Abnormal Final result Please view results for these tests on the individual orders. DRUGS OF ABUSE Medications ordered: Medications lactated ringers bolus 1,000 mL ( IntraVENous Stopped 04/02/231748) PHENobarbital (Luminal) injection 220 mg (220 mg IntraVENous Given 04/02/231649) prochlorperazine (Compazine) injection 10 mg (10 mg IntraVENous Given 04/02/231653) famotidine (Pepcid) injection 20 mg (20 mg IntraVENous Given 04/02/231656) folic acid (Folvite) tablet 1 mg (1 mg Oral Given 04/02/231740) Thiamine Mononitrate (Vitamin B1) tablet 100 mg (100 mg Oral Given 04/02/231740) Diagnoses as of 04/02/23 193 Alcohol use disorder Alcohol withdrawal syndrome without complication (HCC) * No order type specified * REVAL: CRITICAL CARE TIME CONSULTS: None PROCEDURES: Procedures FINAL IMPRESSION 1. Alcohol use disorder DISPOSITION/PLAN DISPOSITION Admit 04/02/2023 06:59:59 PM Case was discussed with MAXWELL Tam and patient was accepted for hospitalization to the detox unit thank you PATIENT REFERRED TO: No follow-up provider specified. I prescribed: New Prescriptions No medications on file (Comment: this report has been produced using speech recognition software and may contain errors related to that system including errors in grammar, punctuation, and spelling, as well as words and phrases that may be inappropriate) JOSÉ LUIS BERMUDEZ MD (electronically signed) José Luis Bermudez MD 04/02/231899 [facility] [employer] Work Phone: 04-02-2023 Emergency department Note Report to 4E. Ruperto Velazquez RN 04/02/232013 [facility] 02-17-2023 Miscellaneous Notes Attempt #2 - no answer/no contact S: Patient admitted to: [facility] B: Discharged on :February 14, 2023 A: Hospital follow up call initiated to discuss any medication changes, follow up appointments and discharge instructions: diagnosis: hyponatremia R: No contact x 1 at : [phone] documented in this encounter [facility] 02-17-2023 Telephone encounter Note Attempt #2 - no answer/no contact [facility] 02-16-2023 Telephone encounter Note S: Patient admitted to: [facility] B: Discharged on :February 14, 2023 A: Hospital follow up call initiated to discuss any medication changes, follow up appointments and discharge instructions: diagnosis: hyponatremia R: No contact x 1 at : [phone] [facility] 02-14-2023 History of Present illness Narrative Front wheeled walker brought up to room by nursing inspection supervisor. Homegoing instructions given. Iid discontinued. [facility] Progress Note Subjective/ 63 y.o. year old male who we are seeing in consultation for hyponatremia. Got hypotensive last night Subsequently received IVF x1L Feeling ok now Resting in bed Still having diarrhea No other new issues at this time ROS done and negative unless mentioned as above No change in PFSH All data labs/interval notes and overnight issues are reviewed Objective/ Vitals: 02/12/23 2300 02/13/23 0326 02/13/23 0553 02/13/23 0803 BP: 95/62 94/57 109/72 BP Location: Right arm Right arm Right arm Patient Position: Lying Lying Lying Pulse: 93 82 82 Resp: 18 18 18 Temp: (!) 35.5 C (95.9 F) (!) 35.6 C (96 F) (!) 35.4 C (95.7 F) TempSrc: Temporal Temporal Temporal SpO2: 99% 99% 99% Weight: 82.6 kg (182 lb 3.2 oz) Height: No intake or output data in the 24 hours ending 02/13/23 1353 amLODIPine, 2.5 mg, Oral, Daily calcium carbonate, 500 mg, Oral, Daily dicyclomine, 20 mg, Oral, TID AC levothyroxine, 50 mcg, Oral, qAM AC losartan, 100 mg, Oral, Daily oxyCODONE, 10 mg, Oral, TID pantoprazole, 40 mg, Oral, Daily potassium chloride CR, 10 mEq, Oral, Daily tamsulosin, 0.4 mg, Oral, Daily [Held by provider] sodium chloride, 100 mL/hr, Last Rate: 100 mL/hr (02/10/23 4606) PRN medications: acetaminophen OR acetaminophen, ondansetron ODT OR ondansetron, polyethylene glycol (PEG) 3350 Constitutional: Alert, awake, no apparent distress Eyes: No icterus, no pallor HEENT: no pallor/cyanosis or icterus Cardiovascular: S1, S2 without m/r/g Respiratory: CTA B without w/r/r GI: +bs, soft, nt : pascual absent Ext: no LE edema Neck: supple, no thyroid enlargement, no JVD elevation Skin: warm, moist, no rashes Results from last 7 days Lab Units 02/13/23 1128 02/13/23 0253 02/12/23 2217 02/12/23 1054 02/12/23 0232 02/11/23 1329 02/11/23 0446 SODIUM mmol/L 128* 125* 125* < > 124* < > 121* POTASSIUM mmol/L -- -- 4.5 -- 4.0 -- 4.2 CHLORIDE mmol/L -- -- 100 -- 100 -- 94* CO2 mmol/L -- -- 20* -- 23 -- 20* BUN mg/dL -- -- 15 -- 13 -- 13 CREATININE mg/dL -- -- 1.36* -- 1.53* -- 1.36* GLUCOSE mg/dL -- -- 104* -- 94 -- 87 CALCIUM mg/dL -- -- 8.3* -- 8.0* -- 7.6* < > = values in this interval not displayed. Results from last 7 days Lab Units 02/12/23 0232 02/11/23 0607 02/10/23 2153 WBC AUTO 10*3/uL 2.3* 2.4* 4.9 HEMOGLOBIN g/dL 9.8* 9.4* 11.7* HEMATOCRIT % 28.3* 28.1* 32.1* PLATELETS AUTO 10*3/uL 79* 77* 108* Assessment/Plan Acute hyponatremia 2. DENNYS 2/2 volume depletion 3. Severe alcohol use disorder 4. Anemia 5. Acute NAGMA 2/2 diarrhea Plan: -Na improving slowly -Urine studies still c/w volume depletion/poor osmolar intake -Fluid restriction: 1.2L -Encourage 3 meals a day high in protein and ensure supplements ordered -Start NaCl 1 gm BID, BP can tolerate and no swelling on board -PVR not done -TSH is high, check t3/t4 and defer management to primary -C diff negative and iron sat is >30% -All other care per primary team -We will follow closely with you Thank you for the consult and the opportunity to participate in the care of this patient. Please do not hesitate to contact us with any questions or concerns. Ophelia Ramos APRN, ANIMAL CONTROL SPECIALIST [facility], [facility] [phone] Associated attestation - Kennedi Pérez MD - 02/13/2023 5:16 PM EDT I have reviewed the above assessment and plan with the [facility]. I agree with above note. Consistently poor solute intake. Bp low as well. Add salt tablets. Possible discharge in AM if Na levels 127 meq/L or above. Cr stable. We will setup outpatient fu Department of Family Medicine Daily Progress Note Subjective Chief Complaint (required for billing): Hyponatremia Pt doing ok this am no further emesis diarrhea resolving na is still low ROS: Review of Systems Objective BP 109/72 (BP Location: Right arm, Patient Position: Lying) Pulse 82 Temp (!) 35.4 C (95.7 F) (Temporal) Resp 18 Ht 5' 10" (1.778 m) Wt 182 lb 3.2 oz (82.6 kg) SpO2 99% BMI 26.14 kg/m Physical Exam Pt is alert and oriented x 3 Heent wnl Heart regular Lungs ctab Abd tender in the upper quad Ext no edema Labs Notable Labs: low na Current Medications Medication orders reviewed, see MAR Assessment/Plan Principal Problem: Hyponatremia N/V/D Abdominal pain Hyponatremia DENNYS Anemia H/o etoh abuse remote pancytopenia Plan Stool studies negative Await GI consult Us ruq ordered Renal following hyponatremia FEN:Adult diet Easy to Chew; 1200 ml GI prophylaxis: PPI ordered DVT prophylaxis: lovenox # Anticipated Discharge - Date - 10-20 d - Location - Home with Home Health Care - Pending the following - KACIE BENZ DO 02/13/23 11:11 AM [facility] Progress Note Subjective/ 63 y.o. year old male who we are seeing in consultation for hyponatremia. Got hypotensive last night Subsequently received IVF x1L Feeling ok now Resting in bed Still having diarrhea No other new issues at this time ROS done and negative unless mentioned as above No change in PFSH All data labs/interval notes and overnight issues are reviewed Objective/ Vitals: 02/12/23 0500 02/12/23 0834 02/12/23 1127 02/12/23 1136 BP: 129/69 (!) 76/41 102/57 BP Location: Left arm Left arm Right arm Patient Position: Sitting Sitting Lying Pulse: 85 90 85 Resp: 18 18 18 Temp: 36.2 C (97.1 F) 36.2 C (97.2 F) 36.2 C (97.1 F) TempSrc: Temporal Temporal Temporal SpO2: 100% 99% 100% Weight: 80.8 kg (178 lb 3.2 oz) Height: Intake/Output Summary (Last 24 hours) at 02/12/2023 1226 Last data filed at 02/11/2023 2100 Gross per 24 hour Intake 1000 ml Output 200 ml Net 800 ml amLODIPine, 2.5 mg, Oral, Daily calcium carbonate, 500 mg, Oral, Daily dicyclomine, 20 mg, Oral, TID AC levothyroxine, 50 mcg, Oral, qAM AC losartan, 100 mg, Oral, Daily oxyCODONE, 10 mg, Oral, TID pantoprazole, 40 mg, Oral, Daily potassium chloride CR, 10 mEq, Oral, Daily tamsulosin, 0.4 mg, Oral, Daily [Held by provider] sodium chloride, 100 mL/hr, Last Rate: 100 mL/hr (02/10/23 2345) sodium chloride, 100 mL/hr PRN medications: acetaminophen OR acetaminophen, ondansetron ODT OR ondansetron, polyethylene glycol (PEG) 3350 Constitutional: Alert, awake, no apparent distress Eyes: No icterus, no pallor HEENT: no pallor/cyanosis or icterus Cardiovascular: S1, S2 without m/r/g Respiratory: CTA B without w/r/r GI: +bs, soft, nt : pascual absent Ext: no LE edema Neck: supple, no thyroid enlargement, no JVD elevation Skin: warm, moist, no rashes Results from last 7 days Lab Units 02/12/23 1054 02/12/23 0232 02/11/23 1959 02/11/23 1329 02/11/23 0446 02/11/23 0015 SODIUM mmol/L 124* 124* 121* < > 121* 120* POTASSIUM mmol/L -- 4.0 -- -- 4.2 3.8 CHLORIDE mmol/L -- 100 -- -- 94* 88* CO2 mmol/L -- 23 -- -- 20* 21* BUN mg/dL -- 13 -- -- 13 13 CREATININE mg/dL -- 1.53* -- -- 1.36* 1.35* GLUCOSE mg/dL -- 94 -- -- 87 126* CALCIUM mg/dL -- 8.0* -- -- 7.6* 8.4 < > = values in this interval not displayed. Results from last 7 days Lab Units 02/12/23 0232 02/11/23 0607 02/10/23 2153 WBC AUTO 10*3/uL 2.3* 2.4* 4.9 HEMOGLOBIN g/dL 9.8* 9.4* 11.7* HEMATOCRIT % 28.3* 28.1* 32.1* PLATELETS AUTO 10*3/uL 79* 77* 108* Assessment/Plan Acute hyponatremia 2. DENNYS 2/2 volume depletion 3. Severe alcohol use disorder 4. Anemia 5. Acute NAGMA 2/2 diarrhea Plan: -Na improving -Urine studies suggest mixed picture hyponatremia with volume depletion from diarrhea and beer potomania -Will give 1 more L of NS -Fluid restriction: 1.2L -Encourage 3 meals a day high in protein and ensure supplements ordered -C/w Q6 Na checks -HIGH RISK of hyponatremia overcorrection -Na rate of correction not to exceed >8mEq/L/day to prevent neurological sequelae, please notify nephrology if rate of rise is exceeding above parameters -PVR not done -TSH is high, check t3/t4 and defer management to primary -C diff negative and iron sat is >30% -We will follow closely with you Thank you for the consult and the opportunity to participate in the care of this patient. Please do not hesitate to contact us with any questions or concerns. Ophelia Ramos APRN, ANIMAL CONTROL SPECIALIST [facility], [facility] [phone] Associated attestation - Kennedi Pérez MD - 02/12/2023 3:45 PM EDT ,I have reviewed the above assessment and plan with the [facility]. I agree with above note. Slowly improving sodium levels. More IVF ordered today as listed in [facility] note. Department of Family Medicine Daily Progress Note Subjective Chief Complaint (required for billing): Hyponatremia Pt doing ok today no more emesis has had some diarrhea his stool studies are nefative ROS: Review of Systems Objective BP 115/75 (BP Location: Right arm, Patient Position: Sitting) Pulse 101 Temp 36.3 C (97.4 F) (Temporal) Resp 18 Ht 5' 10" (1.778 m) Wt 178 lb 3.2 oz (80.8 kg) SpO2 100% BMI 25.57 kg/m Physical Exam\\ Pt is alert and oriented x 3 Heent wnl Heart regular Lungs ctab Abd tender in the upper quad Ext no edema Labs Notable Labs: Current Medications Medication orders reviewed, see MAR Assessment/Plan Principal Problem: Hyponatremia N/V/D Abdominal pain Hyponatremia DENNYS Anemia H/o etoh abuse remote pancytopenia Plan Stool studies negative Await GI consult Us ruq ordered Renal following hyponatremia FEN:Adult diet Easy to Chew; 1200 ml GI prophylaxis: PPI ordered DVT prophylaxis: lovenox # Anticipated Discharge - Date - 10-20 d - Location - Home with Home Health Care - Pending the following - KACIE BENZ DO 02/12/23 7:59 PM Occupational Therapy Facility/Department: [address] Occupational Therapy Initial Evaluation NAME: Woody Ni : 1960 Date of Service: 02/11/2023 Discharge Recommendations: Home with assist PRN, Home with Home health OT OT Equipment Recommendations Equipment Needed: No Assessment REQUIRES OT FOLLOW-UP: No No Skilled OT: At baseline function, No OT goals identified Performance deficits / Impairments: Decreased functional mobility , Decreased safe awareness, Decreased endurance, Decreased strength Assessment: Pt admit 02/10 with nausea, vomiting and diarrhea. Pt found to have alcohol dependence, hyponatremia and is GI/Cdiff rule out. Pt needed assist from spouse at baseline prior to admit with ADLs, functional mobilty/transfers with cane. Pt is currently functioning at SUP level for seated UE ADLs, and seated LE ADLs, CGA for standing portions of ADL tasks. Pt demo's bed mobility with Min A/SBA, transfers with CGA/Min A for controlled descent, and functional mobilty with FWW with CGA, due to increased fatigue. Discussed POC with evaluating PT, pt to remain on PT caseload to address decreased endurance, increased fatigue, and increasing independence with functional mobility/transfers. Pt appears to be at baseline for basic ADLs and has no acute OT needs at this time. OT evaluation only completed this date. Rec planned DC for home with assist PRN and HHC services. Prognosis: Good Decision Making: Low Complexity History: Pt admit 02/10 with nausea, vomiting and diarrhea. Pt found to have alcohol dependence, hyponatremia and is GI/Cdiff rule out. Exam: [facility] Assistance / Modification: SUP-Eliezer for ADLs baseline Activity Tolerance Activity Tolerance: Patient limited by fatigue, Patient limited by pain Patient Diagnosis(es): The primary encounter diagnosis was Hyponatremia. A diagnosis of Alcohol dependence with unspecified alcohol-induced disorder (HCC) was also pertinent to this visit. has a past medical history of Acid reflux, Anxiety, Back pain, Cirrhosis (HCC), Dehydration, Diabetes mellitus (HCC), Gout, Hepatitis C, Hypertension, 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, Nausea and vomiting, and Sleep apnea. has a past surgical history that includes Back surgery; Laminectomy; [place] tooth extraction; lap,cholecystectomy (historical) (N/A, 01/05/2023); and Cholecystectomy. Restrictions Restrictions/Precautions Restrictions/Precautions: General Precautions, Fall Risk, Contact Precautions (enhanced contact, c-diff r/o) Required Braces or Orthoses?: No Vision/Hearing Vision: Within Functional Limits Hearing: Functional/adequate for paticipation in therapy Cognition/Orientation Overall Cognitive Status: WFL Overall Orientation Status: Within Normal Limits Subjective General Chart Reviewed: Yes Patient Assessed for Rehabilitation Services: Yes Family / Caregiver Present: No Subjective Subjective: Pt plesant and cooperative General Comments Comments: Okay to see per RN Patient Stated Goal: not addressed at this time. Pain Assessment Pain Assessment: 0-10 (reports pain "everywhere"; not formally rated) Social/Functional History Social/Functional History Lives With: Spouse Type of Home: House Home Layout: Two level, Performs ADL's on one level, Able to Live on Main level with bedroom/bathroom Home Access: Stairs to enter with rails Entrance Stairs - Number of Steps: 1 Entrance Stairs - Rails: Both Bathroom Shower/Tub: Tub/Shower unit Bathroom Toilet: Standard Bathroom Equipment: Grab bars in shower, Grab bars around toilet, Shower chair Bathroom Accessibility: Walker accessible Home Equipment: Cane, Rolling walker Receives Help From: Family ADL Assistance: Needs assistance Homemaking Assistance: Needs assistance Homemaking Responsibilities: No Ambulation Assistance: Needs assistance With device?: Yes Device: small base quad cane Transfer Assistance: Needs assistance Active Environmental Field Office Manager: No Objective Gross Assessment: Yes AROM: Generally decreased, functional (>90 degrees shoulder flexion grossly observed with functional activity) Strength: Generally decreased, functional (>3+/5 BUE strength grossly observed with functional activity) Observation/Palpation Posture: Fair Observation: PIV intact; tele intact Balance Sitting Balance: Supervision Standing Balance: Contact guard assistance Standing Balance Time: 3 minutes Activity: standing EOB Comment: with FWW, CGA required for stability Functional Mobility Functional - Mobility Device: Rolling Walker Activity: Other (from EOB to short distance in hallway) Assist Level: Contact guard assistance Functional Mobility Comments: Pt requires CGA for safety/stability with functional mobilty for short distance mobiilty in hallway, limited by decreased endurance and fatigue. No overt LOB noted. ADL Grooming: Supervision UE Bathing: Supervision LE Bathing: Minimal assistance UE Dressing: Supervision LE Dressing: Minimal assistance Toileting: Contact guard assistance Additional Comments: Pt reports needing assist from spouse with ADLs prior to admission. Pt demo's seated UE ADLs/seated grooming with SUP, Min A for LE ADLs, requires CGA for standing portions of tasks/functional mobility. Bed mobility Supine to Sit: Minimal assistance Sit to Supine: Stand by assistance Scooting: Stand by assistance Comment: HOB elevated, requires use of bedrail and 1 hand old with Min A to sit EOB, SBA for sit to supine. C/o dizziness with positional changes seated EOB, improvement noted with seated break. Transfers Sit to stand: Contact guard assistance Stand to sit: Minimal assistance Transfer Comments: CGA from EOB to FWW, Min A for controlled descent due to fatigue. Plan Times per Week: OT eval only completed Plan Comment: OT eval only completed, no acute OT goals established Safety Safety Devices in place: Yes Type of devices: All fall risk precautions in place, Gait belt, Patient at risk for falls, Left in bed, Nurse notified, No alarms engaged upon entry into room, Call light within reach Restraints Initially in place: No AM-PAC Score AM-PAC Inpatient Daily Activity Raw Score: 19 ADL Inpatient CMS G-Code Modifier: CK Goals OT eval only completed, no acute OT goals established at this time. Education Education Given To: Patient Education Provided: OT Role, Plan of Care, Transfer Training, Energy Conservation Education Method: Demonstration, Verbal Barriers to Learning: None Education Outcome: Verbalized understanding, Demonstrated understanding Therapy Time Individual Co-treatment Time In 0931 Time Out 0947 Minutes 16 POC supervision transferred to rehab service department Occupational Therapist oJnny Yeh OT Nutrition Assessment Type and Reason for Visit: Initial, Positive Nutrition Screen (weight loss, decreased PO) Nutrition Recommendations/Plan: Continue with Adult diet Easy to Chew; 1200 ml Monitor ability to liberalize primary diet if there's no continued need for Easy to chew restriction. Fluid restriction for hyponatremia. Most recent Na -121 Please document pt's PO intakes via flowsheet to accurately assess PO intake adequacy. MD ordered Ensure Plus High Protein TID which pt was agreeable to continue. Ensure Plus High Protein provides 350 kcals, 20g protein per serving. Will not count ONS towards fluid restriction. Protein content in ONS may help improve sodium levels. Monitor intakes, weights, and labs weekly. RD will follow. 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 Also with ETOH use hx) Weight Loss: (Weights are up and down, fluctuating between 171-210#) Body Fat Loss: Unable to assess Muscle Mass Loss: Unable to assess Fluid Accumulation: No significant fluid accumulation Sterilisation Technician Strength: Not Performed Nutrition Assessment: Pt was admitted with complaints of vomiting and diarrhea with hyponatremia. Pt also reported to RD that he used to weigh 222# about ten months ago. Appears that pt's weights fluctuate. Had a weight documented @210# (08/28/22), but was 177# on (06/05/22). PT reported that he had been having vomiting and diarrhea for 10 months, which was suspected to be 2/2 gall bladder, but pt is s/p GB removal a few weeks ago with no improvement in symptoms. 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 Pt has ETOH use hx- reportedly drinks six 16oz beers/day. Nephro modified pt's diet to Easy to Chew, 1200 ml/day fluid restriction for hyponatremia. Suspect Easy to chew to encourage softer foods in hopes of improving vomiting/diarrhea. Pt is also ordered chocolate Ensure Plus TID by , which pt was agreeable to continue. Pt likes chocolate flavor. Estimated Daily Nutrient Needs: Energy Requirements Based On: Kcal/kg Weight Used for Energy Requirements: [place] Weight for Energy Calculation (kg): 75 kg Total Energy Requirements (kcals/day): 3597-1204 kcals (25-30 kcals/kg) Weight Used for Protein Requirements: [place] Weight in Kg Used for Protein Requirements: 75 kg Estimated Total Protein (g/day): 75-90 (1-1.2g/kg) Estimated Daily Total Fluid (ml/day): Pt is currently on a 1200 ml/day fluid restriction Nutrition Related Findings: no edema; Na 121, Cl 94, CO2 20, Cr 1.36, GFR 58.5, Hgb 9.4, Hct 28.1, Hgb A1c 5.0% (12/29/22), albumin 4.6 Wound Type: None Current Nutrition Therapies: Adult diet Easy to Chew; 1200 ml Current Oral Intake Average Meal Intake: (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 Has desire to eat currently) Average Supplements Intake: None Ordered Anthropometric Measures: Height: 177.8 cm (5' 10") Current Body Weight: 77.6 kg (171 lb) Weight Source: Not Specified Admission Body Weight: 79.4 kg (175 lb) (stated) Usual Body Weight: (177-210#) [place] Body Weight (lbs) (Calculated): 166 lbs [place] Body Weight (Kg) (Calculated): 75 kg % [place] Body Weight (Calculated): 103 % BMI (kg/m2) (Calculated): 24.5 Weight Adjustment For: No Adjustment BMI Categories: Normal Weight (BMI 18.5-24.9) Nutrition Diagnosis: Increased nutrient needs related to increase demand for energy/nutrients as evidenced by lab values, weight loss Altered GI function related to altered GI structure, acute injury/trauma as evidenced by GI abnormality, vomiting, diarrhea, lab values Nutrition Interventions: Nutrition Education/Counseling: No recommendation at this time Coordination of Nutrition Care: Continue to monitor while inpatient Plan of Care discussed with: Pt Goals: Goals: PO intake 75% or greater, by next RD assessment Nutrition Monitoring and Evaluation: Behavioral-Environmental Outcomes: None Identified Food/Nutrient Intake Outcomes: Diet Advancement/Tolerance, Food and Nutrient Intake, Supplement Intake Physical Signs/Symptoms Outcomes: Biochemical Data, GI Status, Nausea or Vomiting, Diarrhea, Fluid Status or Edema, Nutrition Focused Physical Findings, Skin, Weight Discharge Planning: Continue Oral Nutrition Supplement Kristine George RD Contact: *[phone] or via Secure Chat Physical Therapy Facility/Department: [facility] 2E Physical Therapy Initial Evaluation NAME: Woody Ni : 1960 Date of Service: 02/11/2023 Discharge Recommendations: Home with assist PRN, Home with Home health PT Assessment Requires PT Follow-Up: Yes Assessment: Pt admitted 02/10 with nausea, vomiting and diarrhea. Pt found to have alcohol dependence, hyponatremia and is GI/Cdiff rule out. Pt presents with the below deficits limiting his functional independence. On evaluation patient requires SBA/Eliezer for bed mobility, CGA/Eliezer for transfers and CGA for ambulation with FWW. Pt demos decreased safety awareness and is limited by decreased endurance and weakness. Pt should benefit from skilled PT to increase functional endurance and strength. [facility] PT and assist. Performance Deficits/Impairments: Decreased functional mobility , Decreased ADL status, Decreased ROM, Decreased strength, Decreased safe awareness, Decreased endurance, Decreased balance, Increased pain, Decreased posture Decision Making: Medium Complexity History: Pt admitted 02/10 with nausea, vomiting and diarrhea. Pt found to have alcohol dependence, hyponatremia and is GI/Cdiff rule out. PMH listed below. Exam: AM-PAC Clinical Presentation: Pt has PMH as indicated below that contributes to his clinical presentation. Pt has sedentary lifestyle at home and uses SPC for mobility. Rec [facility], however patient is declining due to living environment. Barriers to Learning: none Barriers to Learning: none Activity Tolerance Activity Tolerance: Patient limited by fatigue, Patient limited by pain, Patient limited by endurance Patient Diagnosis(es): The primary encounter diagnosis was Hyponatremia. A diagnosis of Alcohol dependence with unspecified alcohol-induced disorder (HCC) was also pertinent to this visit. has a past medical history of Acid reflux, Anxiety, Back pain, Cirrhosis (HCC), Dehydration, Diabetes mellitus (HCC), Gout, Hepatitis C, Hypertension, 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, Nausea and vomiting, and Sleep apnea. has a past surgical history that includes Back surgery; Laminectomy; [place] tooth extraction; lap,cholecystectomy (historical) (N/A, 01/05/2023); and Cholecystectomy. Restrictions Restrictions/Precautions Restrictions/Precautions: General Precautions, Fall Risk Required Braces or Orthoses?: No Vision/Hearing Vision: Within Functional Limits Hearing: Functional/adequate for paticipation in therapy Cognition/Orientation Overall Cognitive Status: WFL Overall Orientation Status: Within Normal Limits Subjective General Chart Reviewed: Yes Patient Assessed for Rehabilitation Services: Yes Family / Caregiver Present: No Follows Commands: Within Functional Limits General Comment Comments: Per RN patient okay for therapy Subjective Subjective: Pt lying in bed and agreeable to therapy Patient Stated Goal: To return home. Social/Functional History Social/Functional History Lives With: Spouse Type of Home: House Home Layout: Two level, Performs ADL's on one level, Able to Live on Main level with bedroom/bathroom Home Access: Stairs to enter with rails Entrance Stairs - Number of Steps: 1 Entrance Stairs - Rails: Both Bathroom Shower/Tub: Tub/Shower unit Bathroom Toilet: Standard Bathroom Equipment: Grab bars in shower, Grab bars around toilet, Shower chair Bathroom Accessibility: Walker accessible Home Equipment: Cane, Rolling walker Receives Help From: Family ADL Assistance: Needs assistance Homemaking Assistance: Needs assistance Homemaking Responsibilities: No Ambulation Assistance: Needs assistance With device?: Yes Device: small base quad cane Transfer Assistance: Needs assistance Active Environmental Field Office Manager: No Objective Observation/Palpation Posture: Fair Observation: PIV intact; tele intact Gross Assessment Gross Assessment: Yes AROM: Generally decreased, functional PROM: Generally decreased, functional Strength: Generally decreased, functional Coordination: Generally decreased, functional Tone: Normal Sensation: Intact Gross Assessment: Yes AROM: Generally decreased, functional PROM: Generally decreased, functional Strength: Generally decreased, functional Coordination: Generally decreased, functional Tone: Normal Sensation: Intact Bed mobility Supine to Sit: Minimal assistance Sit to Supine: Stand by assistance Scooting: Stand by assistance Comment: HOB elevated and additional time to complete. Pt requires eliezer for trunk management for supine to sit. Reports dizziness in sitting initially that improved with static sitting. Transfers Sit to Stand: Contact guard assistance Stand to sit: Minimal Assistance Comment: from EOB to FWW with CGA for safety. Pt requires Eliezer for controlled descent. Denies dizziness. Ambulation Ambulation: Yes Ambulation 1 Surface 1: Level tile Device 1: Rolling walker Assistance 1: Contact guard Quality of Gait 1: slow heide, reciprocal stepping, shuffling Distance (ft) 1: ~40'x1 Comments 1: Pt limited by rapid fatigue and demos decreased safety awareness. Educated on use of FWW at home for safety and no longer use single point cane due to unsteadiness and back pain. Balance Posture: Fair Sitting - Static: Good Sitting - Dynamic: Good Standing - Static: Fair Standing - Dynamic: Fair, - Plan # of visits: 4 visits Current Treatment Recommendations: Strengthening, ROM, Balance Training, Functional Mobility Training, Transfer Training, Gait Training, Stair training, Endurance Training, Pain Management, Home Exercise Program, Safety Education & Training, Patient/Caregiver Education & Training, Equipment Evaluation, Education, & procurement, Positioning Plan Comment: all goals and/or treatment were established in collaboration with patient Safety Safety Devices Safety Devices in Place: Yes Type of Devices: All fall risk precautions in place, Call light within reach, Gait belt, Patient at risk for falls, Left in bed, Nurse notified AM-PAC Score AM-PAC Inpatient Mobility Raw Score: 17 Mobility Inpatient CMS G-Code Modifier: CK Goals Encounter Problems Encounter Problems (Active) Balance Patient will maintain dynamic standing balance for 5 minutes with SBA in order to demonstrate decreased risk of falling. Start: 02/11/23 Expected End: 02/16/23 Exercise Patient will complete lower extremity exercises for 1-2 sets / 5-10 reps in order to improve strength and activity tolerance for mobility. Start: 02/11/23 Expected End: 02/16/23 Mobility Patient will ambulate 100 feet with supervision and least restrictive device in order to improve safety and independence with mobility. Start: 02/11/23 Expected End: 02/16/23 Patient will ascend and descend 1 stairs with least restrictive device and SBA in order to safely negotiate home. Start: 02/11/23 Expected End: 02/16/23 Transfers Patient will perform bed mobility with modified independence in order to improve independence and prepare for out of bed mobility. Start: 02/11/23 Expected End: 02/16/23 Patient will complete functional transfer with least restrictive device with modified independence in order to prepare for ambulation. Start: 02/11/23 Expected End: 02/16/23 Education Education Given To: Patient Education Provided: Goals, PT Role, Plan of Care, Discharge recommendations, Transfer Training, Family Education, Gait Training, Equipment, Energy Conservation, Functional Mobility Training Education Method: Verbal, Demonstration Barriers to Learning: None Education Outcome: Verbalized understanding, Continued education needed Therapy Time Individual Co-treatment Time In 0932 Time Out 0947 Minutes 15 Krystle Bull PT documented in this encounter [facility] 02-14-2023 Hospital Discharge instructions Lynne Moser RN - 02/14/2023 10:41 AM EDT [place] to chew healthy diet restrict fluid intake documented in this encounter [facility] 02-14-2023 Hospital course Narrative Images from the original note were not included. Discharge Summary Woody Ni : 1960 ADMIT DATE: 02/10/2023 DISCHARGE DATE: 02/14/2023 PRIMARY CARE PHYSICIAN: Jani Quezada VISIT STATUS: Admission CODE STATUS: Full Code DISCHARGE DIAGNOSES: Principal Problem: Hyponatremia HOSPITAL COURSE: Pt admitted with n/v/d and hyponatremia. He was seen by renal and GI. His n/v/d resolved and his sodium was slowly coming up with fluid and then salt tablets. He has Dennys due to volume depletion . He is johnnie home and will have a bmp done this week . He e will follow up with dr quezada this week as well SIGNIFICANT DIAGNOSTIC STUDIES: Labs xray CONSULTANTS: GI renal RECOMMENDED NEXT STEPS: home DISCHARGE MEDICATIONS: Medication List START taking these medications calcium carbonate 500 MG chewable tablet Commonly known as: Tums Chew 1 tablet (500 mg) daily. Do not start before February 15, 2023. Start taking on: February 15, 2023 losartan 100 MG tablet Commonly known as: Cozaar Take 1 tablet (100 mg) by mouth daily. Do not start before February 15, 2023. Start taking on: February 15, 2023 sodium chloride 1 g tablet Take 1 tablet (1 g) by mouth in the morning and 1 tablet (1 g) in the evening. Take with meals. CONTINUE taking these medications acetaminophen 325 MG tablet Commonly known as: Tylenol * albuterol (2.5 MG/3ML) 0.083% nebulizer solution * albuterol 108 (90 Base) MCG/ACT inhaler alendronate 70 MG tablet Commonly known as: Fosamax amLODIPine 2.5 MG tablet Commonly known as: Norvasc cyanocobalamin 1000 MCG/ML injection Commonly known as: Vitamin B-12 dicyclomine 20 MG tablet Commonly known as: Bentyl Take 1 tablet (20 mg) by mouth in the morning and 1 tablet (20 mg) at noon and 1 tablet (20 mg) in the evening. Take before meals. Alana-C tablet fluticasone 50 MCG/ACT nasal spray Commonly known as: Flonase ipratropium 0.02 % nebulizer solution Commonly known as: Atrovent ipratropium-albuterol 0.5-2.5 mg/3 mL nebulizer solution Commonly known as: Duo-Neb ketoconazole 2 % shampoo Commonly known as: NIZOral levothyroxine 50 MCG tablet Commonly known as: Synthroid, Levoxyl TAKE 1 TABLET BY MOUTH DAILY niacin 100 MG tablet nitroglycerin 0.4 MG SL tablet Commonly known as: Nitrostat ondansetron 4 MG tablet Commonly known as: Zofran oxyCODONE 10 MG immediate release tablet Commonly known as: Roxicodone pantoprazole 40 MG EC tablet Commonly known as: ProtoNix potassium chloride ER 10 MEQ ER capsule Commonly known as: Micro-K tamsulosin 0.4 MG 24 hr capsule Commonly known as: Flomax * This list has 2 medication(s) that are the same as other medications prescribed for you. Read the directions carefully, and ask your doctor or other care provider to review them with you. STOP taking these medications cloNIDine 0.1 MG tablet Commonly known as: Catapres clotrimazole-betamethasone cream Commonly known as: Lotrisone colchicine 0.6 MG tablet furosemide 20 MG tablet Commonly known as: Lasix metFORMIN 500 MG tablet Commonly known as: Glucophage olmesartan 40 MG tablet Commonly known as: BENIcar predniSONE 20 MG tablet Commonly known as: Deltasone Where to Get Your Medications You can get these medications from any pharmacy Bring a paper prescription for each of these medications losartan 100 MG tablet sodium chloride 1 g tablet Information about where to get these medications is not yet available Ask your nurse or doctor about these medications calcium carbonate 500 MG chewable tablet DIET: Adult diet Easy to Chew; 1200 ml ACTIVITY: No restriction. COMPLEXITY OF FOLLOW UP: [] Moderate Complexity: follow up within 7-14 calendar days (22843) [] Severe Complexity: follow up within 7 calendar days (89154) FOLLOW UP TESTING, PENDING RESULTS OR REFERRALS AT TRANSITIONAL CARE VISIT: [] Yes [] No PENDING STUDIES: none DISPOSITION: Home FACILITY/HOME CARE AGENCY NAME: Follow up with Kennedi Pérez MD [address] [facility] [place] [address] Follow up Outpatinet labs in 1 week and follow up in office in 1-[address] quezada this week INSTRUCTIONS TO MA/SW: Please call patient on day after discharge (must document patient contacted within 2 business days of discharge). FOLLOW UP QUESTIONS FOR MA/SW: 1. Did you get medications filled and taking them as instructed from discharge? 2. Are you following your discharge instructions from your hospital stay? 3. Please confirm patient is scheduled for a follow up appointment within the above time frame. DISCHARGE TIME: < 30 minutes SIGNED: KACIE BENZ DO 02/14/2023, 9:17 AM documented in this encounter [facility] 02-14-2023 Plan of care note Problem: Potential for Compromised Skin Integrity Goal: Skin Integrity is Maintained or Improved Outcome: Progressing Problem: Urinary Incontinence Goal: Perineal skin integrity is maintained or improved Outcome: Progressing [facility] 02-14-2023 Miscellaneous Notes Problem: Potential for Compromised Skin Integrity Goal: Skin Integrity is Maintained or Improved Outcome: Progressing Problem: Urinary Incontinence Goal: Perineal skin integrity is maintained or improved Outcome: Progressing Images from the original note were not included. Care Management Progress Note Sodium at 3am was 125. This am's level remains pending. Upper Gi pending for this morning. Received 1 liter of fluids yesterday. Blood pressure soft throughout the night. Incomplete I/o. Needs PVR. Will discuss with nursing during morning rounds. Anticipated discharge plan is home with significant other when medically stable. Patient refusing home care services. FWW ordered yesterday per [place] child welfare caseworker request. [employer] notified. Discharge Milestones and Delays Expected Date/Time: 02/13/[address] discharge order Complete med reconciliation Request transport Case mgmt discharge readiness Expected Discharge History Expected Date/Time Set By Reviewed At 02/13/2023 Lea Gee RN 02/12/2023 10:08 AM 02/13/2023 Lea Gee RN 02/11/2023 9:58 AM 02/13/2023 Kacie Benz DO 02/11/2023 2:34 AM 02/13/2023 Kacie Benz, DO 02/10/2023 10:59 PM Length of Stay (Days): 3 GMLOS: No GMLOS Documented .. Received message from [employer] child welfare caseworker that patient was requesting FWW. Order obtained and [employer] liaison notified. Images from the original note were not included. Care Management Progress Note Sodium improved to 124 this morning. Remains on every 6 hours sodium levels. Hemoglobin stable. Platelets low but stable. Lfts elevated but improving. GI ordered upper GI and US of abdomen which are pending for this morning. Stool cultures are normal. Therapy did evaluate yesterday and recommended home with [facility]. Patient did refuse yesterday. Will discuss with him again prior to discharge to determine if he has changed his mind. Discharge plan home with [facility] vs home with significant other when medically stable. Discharge Milestones and Delays Expected Date/Time: 02/13/[address] discharge order Complete med reconciliation Request transport Case mgmt discharge readiness Expected Discharge History Expected Date/Time Set By Reviewed At 02/13/2023 Lea Gee RN 02/11/2023 9:58 AM 02/13/2023 Kacie Benz DO 02/11/2023 2:34 AM 02/13/2023 Kacie Benz, 02/10/2023 10:59 PM Length of Stay (Days): 2 GMLOS: No GMLOS Documented .. Care Managment Initial Assessment Date: 02/11/2023 Patient Name: Woody Ni : 1960 Patient Information Source of Information: Patient Name/Contact Information: KINGSLEY CARL [phone] SIGNIFICANT OTHER FOR 25 YEARS Cognition/Language: WFL - Within Functional Limits Permission given to speak with patient underwriting account representative/caregiver as indicated: Yes Confirmation of Payer with patient/family: Yes Payer Name: MEDICARE AND MEDICAID [place]: No Confirmation of Primary Care Physician: Confirmed PCP Name: DR. QUEZADA Seen in last 2 years?: Yes Primary Caregiver: Spouse/significant other If assistance needed, confirmed caregiver ready, willing and able to care for patient at discharge: Confirmed with: Living Arrangements Current Residence: House Number of Floors 2 Number of Entry Steps: 1 Bed/Bath Levels: Both first floor Facility: Facility Name: [facility] Plan to Return: Yes Lives with: Spouse/significant other, Extended family members (KINGSLEY AND HER 41 YEAR OLD SON) Support Systems: Spouse/significant other, Children Activities of Daily Living Ambulation: Independent (USES CANE WHEN OUTSIDE AND FWW WHEN "REALLY HURTING") Bathing/Dressing: Assistance Elimination/Continence/Toileting: Assistance Feeding: Independent Who Assists with Activities of Daily Living: Instrumental Activities of Daily Living Prescription Coverage: Yes Pharmacy Used: [facility] Medication Management: Prescription pick-up Who assists with medication securing and setup?: KINGSLEY MANAGES SECURING AND SETTING UP MEDS Transportation/Shopping: Assistance Provider Transportation/Shopping Assistance Provider Name: KINGSLEY Transportation Mode: Car Needs Assistance with Transportation at Discharge: No (KINGSLEY) Meal Preparation: Assistance Provider Meal Prep Assistance Provider Name: KINGSLEY Laundry/Cleaning: Assistance Provider Laundry/Cleaning Assistance Provider Name: KINGSLEY Finances/Bill Paying: Assistance Provider Finances/Bill Payer Assistance Provider Name: KINGSLEY Communication: Independent Types of Care Services/Equipment Utilized Care Services: Dialysis Type: NA Durable Medical Equipment: Cane, Walker, Shower Seat, Wheelchair (standard or power), Nebulizer Patient's Goal/Discharge Plan Patient expects to be discharged to: HOME Discharge Planning Actions: Continue to follow Patient's Choice Rights and [employer] and Collaborative Relationships Disclosed as Indicated for Post-Acute Care: NA Interdisciplinary Team Engagement: Social Work Referral for: Community Resources Additional Information: inpatient status from home with hyponatremia. . Discharge preparation checklist reviewed with patient. Has prescription coverage and able to afford medications. Lives at home with his significant other and her 41 year old son. Uses cane when he is outside and fww when he is "really hurting". States significant other assists with bathing and getting to the bathroom. Has nebulizer machine with medications. Do not use oxygen at home. Admits to drinking a 6 pack of beer daily, but states has not drank for 7- 8 days following his gallbladder surgery. States his pcp recently dc'd his metformin as his blood sugar was in the 80's and his hemoglobin a1c was 5.0. is denying anticipating any needs upon discharge and is declining home care services. States significant other Kingsley is able to assist at home if needed. Discharge plan is home with significant other when medically stable.. Lea Gee RN Admitted from home with n/v/d. Patient also has history of etoh abuse. Sodium was 118 on arrival to ER. Currently 121. Receiving IVF, GI and Renal are consulted. Stool specimens are pending. Hemoglobin, platelets, and wbc are down this am. Possibly due to ivf. Pt/ot evals are ordered and pending. Discharge plan remains pending clinical improvement and etoh withdrawal symptoms. May benefit from addiction med consult. . documented in this encounter [facility] 02-13-2023 Note Formatting of this n ote is different from the original. Images from the original note were not included. Care Management Progress Note Sodium at 3am was 125. This am's level remains pending. Upper Gi pending for this morning. Received 1 liter of fluids yesterday. Blood pressure soft throughout the night. Incomplete I/o. Needs PVR. Will discuss with nursing during morning rounds. Anticipated discharge plan is home with significant other when medically stable. Patient refusing home care services. FWW ordered yesterday per child welfare caseworker request. [employer] notified. Discharge Milestones and Delays Expected Date/Time: 02/13/[address] discharge order Complete med reconciliation Request transport Case mgmt discharge readiness Expected Discharge History Expected Date/Time Set By Reviewed At 02/13/2023 Lea Gee RN 02/12/2023 10:08 AM 02/13/2023 Lea Gee RN 02/11/2023 9:58 AM 02/13/2023 Kacie Benz DO 02/11/2023 2:34 AM 02/13/2023 Kacie Benz DO 02/10/2023 10:59 PM Length of Stay (Days): 3 GMLOS: No GMLOS Documented .. [facility] 02-13-2023 Note Formatting of this n ote is different from the original. Images from the original note were not included. Care Management Progress Note Sodium at 3am was 125. This am's level remains pending. Upper Gi pending for this morning. Received 1 liter of fluids yesterday. Blood pressure soft throughout the night. Incomplete I/o. Needs PVR. Will discuss with nursing during morning rounds. Anticipated discharge plan is home with significant other when medically stable. Patient refusing home care services. FWW ordered yesterday per [employer] child welfare caseworker request. [employer] notified. Discharge Milestones and Delays Expected Date/Time: 02/13/[address] discharge order Complete med reconciliation Request transport Case mgmt discharge readiness Expected Discharge History Expected Date/Time Set By Reviewed At 02/13/2023 Lea Gee RN 02/12/2023 10:08 AM 02/13/2023 Lea Gee RN 02/11/2023 9:58 AM 02/13/2023 Kacie Benz, 02/11/2023 2:34 AM 02/13/2023 Kacie Benz, DO 02/10/2023 10:59 PM Length of Stay (Days): 3 GMLOS: No GMLOS Documented .. [facility] 02-12-2023 Note Formatting of this n ote might be different from the original. Received message from [employer] child welfare caseworker that patient was requesting FWW. Order obtained and [employer] liaison notified. [facility] 02-12-2023 Note Formatting of this n ote might be different from the original. Received message from [employer] child welfare caseworker that patient was requesting FWW. Order obtained and [employer] liaison notified. [facility] 02-12-2023 Note Formatting of this n ote is different from the original. Images from the original note were not included. Care Management Progress Note Sodium improved to 124 this morning. Remains on every 6 hours sodium levels. Hemoglobin stable. Platelets low but stable. Lfts elevated but improving. GI ordered upper GI and US of abdomen which are pending for this morning. Stool cultures are normal. Therapy did evaluate yesterday and recommended home with [facility]. Patient did refuse yesterday. Will discuss with him again prior to discharge to determine if he has changed his mind. Discharge plan home with [facility] vs home with significant other when medically stable. Discharge Milestones and Delays Expected Date/Time: 02/13/[address] discharge order Complete med reconciliation Request transport Case mgmt discharge readiness Expected Discharge History Expected Date/Time Set By Reviewed At 02/13/2023 Lea Gee RN 02/11/2023 9:58 AM 02/13/2023 Kacie Benz, DO 02/11/2023 2:34 AM 02/13/2023 Kacie Benz, DO 02/10/2023 10:59 PM Length of Stay (Days): 2 GMLOS: No GMLOS Documented .. [facility] 02-12-2023 Note Formatting of this n ote is different from the original. Images from the original note were not included. Care Management Progress Note Sodium improved to 124 this morning. Remains on every 6 hours sodium levels. Hemoglobin stable. Platelets low but stable. Lfts elevated but improving. GI ordered upper GI and US of abdomen which are pending for this morning. Stool cultures are normal. Therapy did evaluate yesterday and recommended home with [facility]. Patient did refuse yesterday. Will discuss with him again prior to discharge to determine if he has changed his mind. Discharge plan home with [facility] vs home with significant other when medically stable. Discharge Milestones and Delays Expected Date/Time: 02/13/[address] discharge order Complete med reconciliation Request transport Case mgmt discharge readiness Expected Discharge History Expected Date/Time Set By Reviewed At 02/13/2023 Lea Gee RN 02/11/2023 9:58 AM 02/13/2023 Kacie Benz, 02/11/2023 2:34 AM 02/13/2023 Kacie Benz, DO 02/10/2023 10:59 PM Length of Stay (Days): 2 GMLOS: No GMLOS Documented .. [facility] 02-12-2023 Consult note Associated Order (s): Inpatient consult to Gastroenterology Images from the original note were not included. GI CONSULTATION Patient: Woody Ni : 1960 Primary Care Physician: Jani Quezada Inpatient consult to Gastroenterology Consult performed by: Ana Callaway MD Consult ordered by: Kacie Benz DO REASON FOR CONSULTATION: Nausea/vomiting/diarrhea HISTORY OF PRESENT ILLNESS: Woody Ni is a 63 y.o. male with PMH below who presented to the ER complaining of nausea/vomiting and diarrhea. Patient has been having similar episodes over the past 6 to 12 months. At one point it was thought to be his gallbladder which was eventually removed and he did have some relief in symptoms however the nausea and vomiting returned over the past week. Denies any exacerbating or relieving factors. Symptoms progressively worsened. Patient reports eventually was having issues tolerating oral intake. Patient does drink daily and began having tremors and therefore came to the emergency room. Patient also uses marijuana daily. In the ER labs showed: Sodium 118, potassium 3.8, BUN 13, creatinine 1.5, normal hepatic function panel except for elevated AST at 148 and ALT at 121. WBC 4.9, hemoglobin 11.7, platelets 108, INR 1.1 C. difficile negative. GI PCR panel negative. Patient admitted for further evaluation management. PAST MEDICAL HISTORY: Past Medical History: Diagnosis Date Acid reflux Anxiety Back pain Cirrhosis (HCC) Dehydration 12/22/22-12/26/22 admitted to [facility] Diabetes mellitus (HCC) Gout Hepatitis C Hypertension 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 Nausea and vomiting 12/22/22-12/26/22 admitted at [facility] Sleep apnea noncompliant with device PAST SURGICAL HISTORY: Past Surgical History: Procedure Laterality Date BACK SURGERY x 2 CHOLECYSTECTOMY LAMINECTOMY LAP,CHOLECYSTECTOMY (HISTORICAL) N/A 01/05/2023 WISDOM TOOTH EXTRACTION FAMILY HISTORY: Family History Problem Relation Name Age of Onset Depression Mother Depression Maternal Grandmother SOCIAL HISTORY: TOBACCO: reports that he quit smoking about 40 years ago. His smoking use included cigars. He has quit using smokeless tobacco. ETOH: reports current alcohol use of about 21.0 standard drinks per week. DRUGS: reports current drug use. Drug: Marijuana. Medications: Prior to Admission medications Medication Sig Start Date End Date Taking? Authorizing Provider acetaminophen (Tylenol) 325 MG tablet every 4 hours as needed. Historical Provider, albuterol (2.5 MG/3ML) 0.083% nebulizer solution Inhale 2.5 mg. PRN Historical Provider, albuterol 108 (90 Base) MCG/ACT inhaler every 4 hours. Historical Provider, alendronate (Fosamax) 70 MG tablet Take 70 mg by mouth once a week. 05/19/17 Historical Provider, amLODIPine (Norvasc) 2.5 MG tablet Take 2.5 mg by mouth in the morning. 05/27/17 Historical Provider, Bioflavonoid Products (Alana-C) tablet Every 24 hours. Historical Provider, cloNIDine (Catapres) 0.1 MG tablet Take 0.1 mg by mouth. 06/05/22 Historical Provider, clotrimazole-betamethasone (Lotrisone) cream PRN 03/31/17 Historical Provider, colchicine 0.6 MG tablet every 8 hours. Historical Provider, cyanocobalamin (Vitamin B-12) 1000 MCG/ML injection 1 mL intramuscularly once a month Historical Provider, dicyclomine (Bentyl) 20 MG tablet Take 1 tablet (20 mg) by mouth in the morning and 1 tablet (20 mg) at noon and 1 tablet (20 mg) in the evening. Take before meals. 11/07/22 11/07/23 Beryl Holder PA-C fluticasone (Flonase) 50 MCG/ACT nasal spray Administer 1 spray into affected nostril(s). 04/27/17 Historical Provider, furosemide (Lasix) 20 MG tablet Take 40 mg by mouth 2 times daily. 05/18/17 Historical Provider, ipratropium (Atrovent) 0.02 % nebulizer solution PRN 05/04/17 Historical Provider, ipratropium-albuterol (Duo-Neb) 0.5-2.5 mg/3 mL nebulizer solution every 6 hours. Historical Provider, ketoconazole (NIZOral) 2 % shampoo EVERY THREE DAYS 11/18/19 Historical Provider, levothyroxine (Synthroid, Levoxyl) 50 MCG tablet TAKE 1 TABLET BY MOUTH DAILY 06/06/22 06/06/23 Nicolas Qiu metFORMIN (Glucophage) 500 MG tablet Take 1,000 mg by mouth daily (with breakfast). 05/21/17 Historical Provider, niacin 100 MG tablet Every 24 hours. Historical Provider, nitroglycerin (Nitrostat) 0.4 MG SL tablet 1 tab(s) sublingually every 5 minutes x 3 doses prn Historical Provider, olmesartan (BENIcar) 40 MG tablet Every 24 hours. 10/14/22 Historical Provider, ondansetron (Zofran) 4 MG tablet Every 24 hours. Historical Provider, oxyCODONE (Roxicodone) 10 MG immediate release tablet Take 10 mg by mouth in the morning and 10 mg at noon and 10 mg in the evening and 10 mg before bedtime. 05/29/17 Historical Provider, pantoprazole (ProtoNix) 40 MG EC tablet Take 40 mg by mouth daily. Historical Provider, potassium chloride ER (Micro-K) 10 MEQ ER capsule Take 10 mEq by mouth in the morning. 03/30/17 Historical Provider, predniSONE (Deltasone) 20 MG tablet 01/05/23 Historical Provider, tamsulosin (Flomax) 0.4 MG 24 hr capsule Take 0.4 mg by mouth daily. 01/27/22 Historical Provider, Insulin Lispro (Humalog) 100 UNIT/ML solution injection Inject under the skin. 06/04/22 02/11/23 Historical Provider, lidocaine (Xylocaine) 2 % solution 11/18/19 02/10/23 Historical Provider, lidocaine (Xylocaine) 5 % ointment every 8 hours. PRN 02/10/23 Historical Provider, loperamide (Imodium A-D) 2 MG tablet every 6 hours. PRN 02/10/23 Historical Provider, loratadine (Claritin) 10 MG tablet Every 24 hours. PRN 02/10/23 Historical Provider, pravastatin (Pravachol) 40 MG tablet Take 40 mg by mouth in the morning. 04/30/17 02/11/23 Historical Provider, thiamine (Vitamin B-1) 100 MG tablet Every 24 hours. 06/04/22 02/11/23 Historical Provider, @MEDED@ ALLERGIES: Allergies Allergen Reactions Allopurinol Other Breaks out in blisters Codeine Nausea Only Penicillin G Swelling REVIEW OF SYSTEMS: No fever, chills, or sweats. Normal appetite and weight. No GRANADOS, visual disturbance, eye pain, jaundice, sore throat or mouth ulcers. No skin rash or itching. No CP, SOB, TABOR, cough or wheeze. No urinary frequency, urgency, hematuria, or dysuria. No myalgia, arthralgia, or joint swelling. No weakness, numbness, or confusion. GI per HPI. No polyuria, polydipsia, heat or cold intolerance. PHYSICAL EXAM: VS: BP (!) 150/94 (BP Location: Left arm) Pulse 82 Temp 36.1 C (97 F) (Temporal) Resp 20 Ht 5' 10" (1.778 m) Wt 171 lb 12.8 oz (77.9 kg) SpO2 96% BMI 24.65 kg/m Body mass index is 24.65 kg/m . GENERAL: Pleasant and NAD. HEENT: NCAT, PERRLA, EOMI, Scleral anicteric. Oropharhynx clear with no erythema or exudate. Neck supple, no cervical LAD or thyromegaly. CV: RRR, NL S1/S2, no murmurs. Distal pulses palpable and equal b/l. LUNGS: CTA b/l. Normal percussion and palpation. No W/R/R. Abdomen: + BS, soft, non-tender and non-distended. No hepatosplenomegaly. No mass felt. No rebound or guarding. No hernia. Extremities: No C/C/E. No muscle atrophy. Skin: No skin lesion or breakdown. Lymph: No cervical or supraclavicular LAD. Musculoskeletal: Strength 5/5 in all exts. No joint tenderness or effusions in LEs. Neurologic: A&O x 3, CN II-XII grossly intact. No asterixis. Non-focal. Psych: Normal affect and speech. LABS AND IMAGING: Recent blood work and relevant radiologic and endoscopic studies were reviewed and discussed with the patient. CBC: Recent Labs 02/10/23 2153 02/11/23 0607 WBC 4.9 2.4* HGB 11.7* 9.4* HCT 32.1* 28.1* PLT 108* 77* HEPATIC: Recent Labs 02/10/232152 AST 148* ALT 121* BILITOT 1.3 ALKPHOS 80 LIPASE/AMYLASE: Recent Labs 02/10/232152 LIPASE 152 LACTATE: No lab exists for component: LACTA BNP: No results for input(s): BNP in the last 72 hours. INR: Recent Labs 02/10/232152 INR 1.1 @RISRSLT@ @IMAGES@ CT abdomen pelvis wo IV contrast Narrative: Patient Name: WOODY NI : 1960 Exam Date/Time: 12/22/2022 19:41 Procedure: CT ABDOMEN PELVIS WO IV CONTRAST Ordering Provider: MARIN MATTHEW Reason For Exam: Nausea/vomiting CT ABDOMEN AND PELVIS WITHOUT IV CONTRAST CLINICAL INDICATION: Nausea and vomiting TECHNIQUE: Multidetector spiral transaxial sequence was performed through the abdomen and pelvis. Images were reconstructed at 3 mm slice width at 3 mm interval. Dose reduction was employed with automated exposure control. COMPARISON:05/15/2022 CT abdomen and pelvis FINDINGS: Exam quality: This examination is limited for the evaluation of solid organs and vascular structures due to the lack of intravenous contrast. Lower chest: Mild bibasilar atelectasis without evidence of pleural effusion or focal consolidation. The heart is normal in size without evidence of pericardial effusion. The distal esophagus is unremarkable. Liver: The liver is normal in size without evidence of focal liver lesion. Biliary tree: Intrahepatic and extrahepatic ducts are nondilated. Gallbladder: The gallbladder is nondistended and without evidence of radiopaque stones. Pancreas: The pancreas appears unremarkable without evidence of ductal dilatation or mass. Spleen: The spleen is enlarged measuring 14 cm in length. Adrenals: Bilateral adrenal glands appear normal. Kidneys: The bilateral kidneys are normal in size. There are two 3 mm nonobstructing calculi in the superior pole of the right kidney. No evidence of hydroureteronephrosis or ureterolithiasis. Bladder: The bladder is decompressed limiting evaluation. Pelvic organs/viscera: No mass identified Bowel: The stomach is unremarkable. Questionable circumferential wall thickening of the rectum. Otherwise the visualized bowel is unremarkable without evidence of wall thickening or dilatation. Retroperitoneal/mesenteric lymphadenopathy: There is no free fluid, loculated fluid collection, or free air. No evidence of abdominal pelvic lymphadenopathy. Aorta: There is no aneurysmal dilatation of the abdominal aorta. Moderate atherosclerotic calcifications of the abdominal aorta and its branches. Abdominal wall: Fat-containing left inguinal hernia. Bones: Moderate multilevel discogenic degenerative changes. Stable retrolisthesis at L2-L3. Impression: Questionable circumferential wall thickening of the rectum, please correlate with clinical concern for colitis. Further evaluation with direct visualization may be obtained as indicated. Splenomegaly. Nonobstructing right renal calculi. Report Dictated on Electronically Signed By: Ryan White Electronically Signed Date/Time: 12/22/2022 8:01 PM EST IMPRESSION / RECOMMENDATIONS: Hyperlipidemia Diabetes Obstructive sleep apnea Marijuana use Alcohol abuse -CIWA -Thiamine and folic acid DENNYS/hyponatremia -Nephrology following Anemia Abdominal pain/nausea/vomiting/diarrhea: Unclear etiology at this point. Stool studies unremarkable. EGD 06/05/2022: Normal duodenum. Mild gastritis. Normal esophagus with questionable decreased motility. -PPI -Antiemetics -Abdominal ultrasound -Barium upper GI series to look for any dysmotility (Comment: Please note this report has been produced using speech recognition software and may contain errors related to that system including errors in grammar, punctuation, and spelling, as well as words and phrases that may be inappropriate. If there are any questions or concerns please feel free to contact the dictating provider for clarification.) [employer] Phone: 02-12-2023 Consult note Associated Order (s): Inpatient consult to Gastroenterology Images from the original note were not included. GI CONSULTATION Patient: Woody Ni : 1960 Primary Care Physician: Jani Quezada Inpatient consult to Gastroenterology Consult performed by: Ana Callaway MD Consult ordered by: Kacie Benz DO REASON FOR CONSULTATION: Nausea/vomiting/diarrhea HISTORY OF PRESENT ILLNESS: Woody Ni is a 63 y.o. male with PMH below who presented to the ER complaining of nausea/vomiting and diarrhea. Patient has been having similar episodes over the past 6 to 12 months. At one point it was thought to be his gallbladder which was eventually removed and he did have some relief in symptoms however the nausea and vomiting returned over the past week. Denies any exacerbating or relieving factors. Symptoms progressively worsened. Patient reports eventually was having issues tolerating oral intake. Patient does drink daily and began having tremors and therefore came to the emergency room. Patient also uses marijuana daily. In the ER labs showed: Sodium 118, potassium 3.8, BUN 13, creatinine 1.5, normal hepatic function panel except for elevated AST at 148 and ALT at 121. WBC 4.9, hemoglobin 11.7, platelets 108, INR 1.1 C. difficile negative. GI PCR panel negative. Patient admitted for further evaluation management. PAST MEDICAL HISTORY: Past Medical History: Diagnosis Date Acid reflux Anxiety Back pain Cirrhosis (HCC) Dehydration 12/22/22-12/26/22 admitted to [facility] Diabetes mellitus (HCC) Gout Hepatitis C Hypertension 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 Nausea and vomiting 12/22/22-12/26/22 admitted at [facility] Sleep apnea noncompliant with device PAST SURGICAL HISTORY: Past Surgical History: Procedure Laterality Date BACK SURGERY x 2 CHOLECYSTECTOMY LAMINECTOMY LAP,CHOLECYSTECTOMY (HISTORICAL) N/A 01/05/2023 WISDOM TOOTH EXTRACTION FAMILY HISTORY: Family History Problem Relation Name Age of Onset Depression Mother Depression Maternal Grandmother SOCIAL HISTORY: TOBACCO: reports that he quit smoking about 40 years ago. His smoking use included cigars. He has quit using smokeless tobacco. ETOH: reports current alcohol use of about 21.0 standard drinks per week. DRUGS: reports current drug use. Drug: Marijuana. Medications: Prior to Admission medications Medication Sig Start Date End Date Taking? Authorizing Provider acetaminophen (Tylenol) 325 MG tablet every 4 hours as needed. Historical Provider, albuterol (2.5 MG/3ML) 0.083% nebulizer solution Inhale 2.5 mg. PRN Historical Provider, albuterol 108 (90 Base) MCG/ACT inhaler every 4 hours. Historical Provider, alendronate (Fosamax) 70 MG tablet Take 70 mg by mouth once a week. 05/19/17 Historical Provider, amLODIPine (Norvasc) 2.5 MG tablet Take 2.5 mg by mouth in the morning. 05/27/17 Historical Provider, Bioflavonoid Products (Alana-C) tablet Every 24 hours. Historical Provider, cloNIDine (Catapres) 0.1 MG tablet Take 0.1 mg by mouth. 06/05/22 Historical Provider, clotrimazole-betamethasone (Lotrisone) cream PRN 03/31/17 Historical Provider, colchicine 0.6 MG tablet every 8 hours. Historical Provider, cyanocobalamin (Vitamin B-12) 1000 MCG/ML injection 1 mL intramuscularly once a month Historical Provider, dicyclomine (Bentyl) 20 MG tablet Take 1 tablet (20 mg) by mouth in the morning and 1 tablet (20 mg) at noon and 1 tablet (20 mg) in the evening. Take before meals. 11/07/22 11/07/23 Beryl Holder PA-C fluticasone (Flonase) 50 MCG/ACT nasal spray Administer 1 spray into affected nostril(s). 04/27/17 Historical Provider, furosemide (Lasix) 20 MG tablet Take 40 mg by mouth 2 times daily. 05/18/17 Historical Provider, ipratropium (Atrovent) 0.02 % nebulizer solution PRN 05/04/17 Historical Provider, ipratropium-albuterol (Duo-Neb) 0.5-2.5 mg/3 mL nebulizer solution every 6 hours. Historical Provider, ketoconazole (NIZOral) 2 % shampoo EVERY THREE DAYS 11/18/19 Historical Provider, levothyroxine (Synthroid, Levoxyl) 50 MCG tablet TAKE 1 TABLET BY MOUTH DAILY 06/06/22 06/06/23 Nicolas Qiu metFORMIN (Glucophage) 500 MG tablet Take 1,000 mg by mouth daily (with breakfast). 05/21/17 Historical Provider, niacin 100 MG tablet Every 24 hours. Historical Provider, nitroglycerin (Nitrostat) 0.4 MG SL tablet 1 tab(s) sublingually every 5 minutes x 3 doses prn Historical Provider, olmesartan (BENIcar) 40 MG tablet Every 24 hours. 10/14/22 Historical Provider, ondansetron (Zofran) 4 MG tablet Every 24 hours. Historical Provider, oxyCODONE (Roxicodone) 10 MG immediate release tablet Take 10 mg by mouth in the morning and 10 mg at noon and 10 mg in the evening and 10 mg before bedtime. 05/29/17 Historical Provider, pantoprazole (ProtoNix) 40 MG EC tablet Take 40 mg by mouth daily. Historical Provider, potassium chloride ER (Micro-K) 10 MEQ ER capsule Take 10 mEq by mouth in the morning. 03/30/17 Historical Provider, predniSONE (Deltasone) 20 MG tablet 01/05/23 Historical Provider, tamsulosin (Flomax) 0.4 MG 24 hr capsule Take 0.4 mg by mouth daily. 01/27/22 Historical Provider, Insulin Lispro (Humalog) 100 UNIT/ML solution injection Inject under the skin. 06/04/22 02/11/23 Historical Provider, lidocaine (Xylocaine) 2 % solution 11/18/19 02/10/23 Historical Provider, lidocaine (Xylocaine) 5 % ointment every 8 hours. PRN 02/10/23 Historical Provider, loperamide (Imodium A-D) 2 MG tablet every 6 hours. PRN 02/10/23 Historical Provider, loratadine (Claritin) 10 MG tablet Every 24 hours. PRN 02/10/23 Historical Provider, pravastatin (Pravachol) 40 MG tablet Take 40 mg by mouth in the morning. 04/30/17 02/11/23 Historical Provider, thiamine (Vitamin B-1) 100 MG tablet Every 24 hours. 06/04/22 02/11/23 Historical Provider, @MEDED@ ALLERGIES: Allergies Allergen Reactions Allopurinol Other Breaks out in blisters Codeine Nausea Only Penicillin G Swelling REVIEW OF SYSTEMS: No fever, chills, or sweats. Normal appetite and weight. No GRANADOS, visual disturbance, eye pain, jaundice, sore throat or mouth ulcers. No skin rash or itching. No CP, SOB, TABOR, cough or wheeze. No urinary frequency, urgency, hematuria, or dysuria. No myalgia, arthralgia, or joint swelling. No weakness, numbness, or confusion. GI per HPI. No polyuria, polydipsia, heat or cold intolerance. PHYSICAL EXAM: VS: BP (!) 150/94 (BP Location: Left arm) Pulse 82 Temp 36.1 C (97 F) (Temporal) Resp 20 Ht 5' 10" (1.778 m) Wt 171 lb 12.8 oz (77.9 kg) SpO2 96% BMI 24.65 kg/m Body mass index is 24.65 kg/m . GENERAL: Pleasant and NAD. HEENT: NCAT, PERRLA, EOMI, Scleral anicteric. Oropharhynx clear with no erythema or exudate. Neck supple, no cervical LAD or thyromegaly. CV: RRR, NL S1/S2, no murmurs. Distal pulses palpable and equal b/l. LUNGS: CTA b/l. Normal percussion and palpation. No W/R/R. Abdomen: + BS, soft, non-tender and non-distended. No hepatosplenomegaly. No mass felt. No rebound or guarding. No hernia. Extremities: No C/C/E. No muscle atrophy. Skin: No skin lesion or breakdown. Lymph: No cervical or supraclavicular LAD. Musculoskeletal: Strength 5/5 in all exts. No joint tenderness or effusions in LEs. Neurologic: A&O x 3, CN II-XII grossly intact. No asterixis. Non-focal. Psych: Normal affect and speech. LABS AND IMAGING: Recent blood work and relevant radiologic and endoscopic studies were reviewed and discussed with the patient. CBC: Recent Labs 02/10/23215202/11/23 0607 WBC 4.9 2.4* HGB 11.7* 9.4* HCT 32.1* 28.1* PLT 108* 77* HEPATIC: Recent Labs 02/10/232152 AST 148* ALT 121* BILITOT 1.3 ALKPHOS 80 LIPASE/AMYLASE: Recent Labs 02/10/232152 LIPASE 152 LACTATE: No lab exists for component: LACTA BNP: No results for input(s): BNP in the last 72 hours. INR: Recent Labs 02/10/232152 INR 1.1 @RISRSLT@ @IMAGES@ CT abdomen pelvis wo IV contrast Narrative: Patient Name: WOODY NI : 1960 Exam Date/Time: 12/22/2022 19:41 Procedure: CT ABDOMEN PELVIS WO IV CONTRAST Ordering Provider: MARIN MATTHEW Reason For Exam: Nausea/vomiting CT ABDOMEN AND PELVIS WITHOUT IV CONTRAST CLINICAL INDICATION: Nausea and vomiting TECHNIQUE: Multidetector spiral transaxial sequence was performed through the abdomen and pelvis. Images were reconstructed at 3 mm slice width at 3 mm interval. Dose reduction was employed with automated exposure control. COMPARISON:05/15/2022 CT abdomen and pelvis FINDINGS: Exam quality: This examination is limited for the evaluation of solid organs and vascular structures due to the lack of intravenous contrast. Lower chest: Mild bibasilar atelectasis without evidence of pleural effusion or focal consolidation. The heart is normal in size without evidence of pericardial effusion. The distal esophagus is unremarkable. Liver: The liver is normal in size without evidence of focal liver lesion. Biliary tree: Intrahepatic and extrahepatic ducts are nondilated. Gallbladder: The gallbladder is nondistended and without evidence of radiopaque stones. Pancreas: The pancreas appears unremarkable without evidence of ductal dilatation or mass. Spleen: The spleen is enlarged measuring 14 cm in length. Adrenals: Bilateral adrenal glands appear normal. Kidneys: The bilateral kidneys are normal in size. There are two 3 mm nonobstructing calculi in the superior pole of the right kidney. No evidence of hydroureteronephrosis or ureterolithiasis. Bladder: The bladder is decompressed limiting evaluation. Pelvic organs/viscera: No mass identified Bowel: The stomach is unremarkable. Questionable circumferential wall thickening of the rectum. Otherwise the visualized bowel is unremarkable without evidence of wall thickening or dilatation. Retroperitoneal/mesenteric lymphadenopathy: There is no free fluid, loculated fluid collection, or free air. No evidence of abdominal pelvic lymphadenopathy. Aorta: There is no aneurysmal dilatation of the abdominal aorta. Moderate atherosclerotic calcifications of the abdominal aorta and its branches. Abdominal wall: Fat-containing left inguinal hernia. Bones: Moderate multilevel discogenic degenerative changes. Stable retrolisthesis at L2-L3. Impression: Questionable circumferential wall thickening of the rectum, please correlate with clinical concern for colitis. Further evaluation with direct visualization may be obtained as indicated. Splenomegaly. Nonobstructing right renal calculi. Report Dictated on Electronically Signed By: Ryan White Electronically Signed Date/Time: 12/22/2022 8:01 PM EST IMPRESSION / RECOMMENDATIONS: Hyperlipidemia Diabetes Obstructive sleep apnea Marijuana use Alcohol abuse -CIWA -Thiamine and folic acid DENNYS/hyponatremia -Nephrology following Anemia Abdominal pain/nausea/vomiting/diarrhea: Unclear etiology at this point. Stool studies unremarkable. EGD 06/05/2022: Normal duodenum. Mild gastritis. Normal esophagus with questionable decreased motility. -PPI -Antiemetics -Abdominal ultrasound -Barium upper GI series to look for any dysmotility (Comment: Please note this report has been produced using speech recognition software and may contain errors related to that system including errors in grammar, punctuation, and spelling, as well as words and phrases that may be inappropriate. If there are any questions or concerns please feel free to contact the dictating provider for clarification.) Associated Order(s): IP CONSULT TO NEPHROLOGY [facility] Consult Note Reason for Consult: hyponatremia Requesting Physician: Kacie Benz DO Chief Complaint: Chief Complaint Patient presents with Vomiting Diarrhea History of Present Ilness: Woody Ni is a 63 y.o. male who presents to the emergency department complaining of vomiting and diarrhea. Patient reports he has a history of the same. He had been feeling better after he had his gallbladder removed a few weeks ago. However, over the last few days he has been having recurrent symptoms. He was unable to drink today and he typically drinks (6) 16 ounce beers per day. He started to have some tremor related to lack of alcohol use. Nephrology is asked to see the patient for hyponatremia. Patient currently has an Na level of 121, previously 120, as low as 118 on presentation to the hospital and baseline ~128-130. Chronic abuse of alcohol +ve. Former tobacco use. Daily use of vape and marijuana. He takes lasix and olmesartan daily at home. +ve N/V/D. Denies pain. Past Medical History: Past Medical History: Diagnosis Date Acid reflux Anxiety Back pain Cirrhosis (HCC) Dehydration 12/22/22-12/26/22 admitted to [facility] Diabetes mellitus (HCC) Gout Hepatitis C Hypertension 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 Nausea and vomiting 12/22/22-12/26/22 admitted at [facility] Sleep apnea noncompliant with device Past Surgical History: Past Surgical History: Procedure Laterality Date BACK SURGERY x 2 CHOLECYSTECTOMY LAMINECTOMY LAP,CHOLECYSTECTOMY (HISTORICAL) N/A 01/05/2023 WISDOM TOOTH EXTRACTION Home Medications: No current facility-administered medications on file prior to encounter. Current Outpatient Medications on File Prior to Encounter Medication Sig Dispense Refill acetaminophen (Tylenol) 325 MG tablet every 4 hours as needed. albuterol (2.5 MG/3ML) 0.083% nebulizer solution Inhale 2.5 mg. PRN albuterol 108 (90 Base) MCG/ACT inhaler every 4 hours. alendronate (Fosamax) 70 MG tablet Take 70 mg by mouth once a week. amLODIPine (Norvasc) 2.5 MG tablet Take 2.5 mg by mouth in the morning. Bioflavonoid Products (Alana-C) tablet Every 24 hours. cloNIDine (Catapres) 0.1 MG tablet Take 0.1 mg by mouth. clotrimazole-betamethasone (Lotrisone) cream PRN colchicine 0.6 MG tablet every 8 hours. cyanocobalamin (Vitamin B-12) 1000 MCG/ML injection 1 mL intramuscularly once a month dicyclomine (Bentyl) 20 MG tablet Take 1 tablet (20 mg) by mouth in the morning and 1 tablet (20 mg) at noon and 1 tablet (20 mg) in the evening. Take before meals. 90 tablet 1 fluticasone (Flonase) 50 MCG/ACT nasal spray Administer 1 spray into affected nostril(s). furosemide (Lasix) 20 MG tablet Take 40 mg by mouth 2 times daily. ipratropium (Atrovent) 0.02 % nebulizer solution PRN ipratropium-albuterol (Duo-Neb) 0.5-2.5 mg/3 mL nebulizer solution every 6 hours. ketoconazole (NIZOral) 2 % shampoo EVERY THREE DAYS levothyroxine (Synthroid, Levoxyl) 50 MCG tablet TAKE 1 TABLET BY MOUTH DAILY 30 tablet 0 metFORMIN (Glucophage) 500 MG tablet Take 1,000 mg by mouth daily (with breakfast). niacin 100 MG tablet Every 24 hours. nitroglycerin (Nitrostat) 0.4 MG SL tablet 1 tab(s) sublingually every 5 minutes x 3 doses prn olmesartan (BENIcar) 40 MG tablet Every 24 hours. ondansetron (Zofran) 4 MG tablet Every 24 hours. oxyCODONE (Roxicodone) 10 MG immediate release tablet Take 10 mg by mouth in the morning and 10 mg at noon and 10 mg in the evening and 10 mg before bedtime. pantoprazole (ProtoNix) 40 MG EC tablet Take 40 mg by mouth daily. potassium chloride ER (Micro-K) 10 MEQ ER capsule Take 10 mEq by mouth in the morning. predniSONE (Deltasone) 20 MG tablet tamsulosin (Flomax) 0.4 MG 24 hr capsule Take 0.4 mg by mouth daily. [DISCONTINUED] Insulin Lispro (Humalog) 100 UNIT/ML solution injection Inject under the skin. [DISCONTINUED] lidocaine (Xylocaine) 2 % solution [DISCONTINUED] lidocaine (Xylocaine) 5 % ointment every 8 hours. PRN [DISCONTINUED] loperamide (Imodium A-D) 2 MG tablet every 6 hours. PRN [DISCONTINUED] loratadine (Claritin) 10 MG tablet Every 24 hours. PRN [DISCONTINUED] pravastatin (Pravachol) 40 MG tablet Take 40 mg by mouth in the morning. [DISCONTINUED] thiamine (Vitamin B-1) 100 MG tablet Every 24 hours. Allergies: Allopurinol, Codeine, and Penicillin g Social History: Social History Socioeconomic History Marital status: Spouse name: Not on file Number of children: Not on file Years of education: Not on file Highest education level: Not on file Occupational History Not on file Tobacco Use Smoking status: Former Types: Cigars Quit date: 1982 Years since quittin.3 Smokeless tobacco: Former Vaping Use Vaping Use: Every day Substances: CBD, canabis Devices: Disposable Substance and Sexual Activity Alcohol use: Yes Alcohol/week: 21.0 standard drinks Types: 21 Cans of beer per week Comment: TALL BOY ARE DOUBLE BEERS 42 per week Drug use: Yes Types: Marijuana Comment: daily Sexual activity: Not on file Other Topics Concern Not on file Social History Narrative Not on file Social Determinants of Health Financial Resource Strain: Not on file Food Insecurity: Not on file Transportation Needs: No Transportation Needs Lack of Transportation (Medical): No Lack of Transportation (Non-Medical): No Physical Activity: Not on file Stress: Not on file Social Connections: Not on file Intimate Partner Violence: Not At Risk Fear of Current or Ex-Partner: No Emotionally Abused: No Physically Abused: No Sexually Abused: No Housing Stability: Low Risk Unable to Pay for Housing in the Last Year: No Number of Places Lived in the Last Year: 1 Unstable Housing in the Last Year: No Family History: Family History Problem Relation Name Age of Onset Depression Mother Depression Maternal Grandmother Review of Systems: Pertinent positives stated above in HPI. All other systems were reviewed and were negative. Physical exam: Constitutional: Vitals: 02/11/23 0141 02/11/23 0142 02/11/23 0242 02/11/23 0744 BP: 118/85 (!) 150/94 134/84 BP Location: Left arm Pulse: 74 82 80 Resp: 12 20 20 Temp: 36.1 C (97 F) 36.1 C (96.9 F) TempSrc: Temporal Temporal SpO2: 99% 96% 98% Weight: 77.9 kg (171 lb 12.8 oz) Height: 1.778 m (5' 10") CURRENT TEMPERATURE: Temp: 36.1 C (96.9 F) MAXIMUM TEMPERATURE OVER 24HRS: Temp (24hrs), Av.2 C (97.2 F), Min:36.1 C (96.9 F), Max:36.5 C (97.7 F) CURRENT PULSE: Heart Rate: 80 CURRENT BLOOD PRESSURE: BP: 134/84 24HR BLOOD PRESSURE RANGE: Systolic (24hrs), Av , Min:118 , Max:150 ; Diastolic (24hrs), Av, Min:76, Max:98 24HR INTAKE/OUTPUT: No intake or output data in the 24 hours ending 02/11/23 0947 Physical Exam: Appearance: NAD, awake, alert, cooperative to exam Eyes: PERRLA, clear sclera ENT: hearing normal, no oral thrush, no erythema or exudate on hard or soft palate, tongue normal, moist mucus membranes Neck: supple, no JVD, no thyromegaly Respiratory: breathing unlabored, lungs CTA B/L anteriorly without w/r/r Cardiovascular: heart RRR without m/g/r, pedal pulses palpable Gastrointestinal: abdomen soft, non-tender, non-distended, normoactive bowel sounds. No masses or hernia. Musculoskeletal: normal muscle strength and tone, no edema of BLE Skin: warm and dry, no rash or wounds Neurologic: symmetric strength and sensation Psychiatric: alert and oriented to person/place/time, judgement and insight normal, memory intact, normal mood and range of affect Data: LIVER PROFILE: Recent Labs 02/10/232152 AST 148* ALT 121* BILITOT 1.3 ALKPHOS 80 CBC: Recent Labs 02/10/23215202/11/23 0607 WBC 4.9 2.4* RBC 3.56* 2.87* HGB 11.7* 9.4* HCT 32.1* 28.1* MCV 90.2 97.9 RDW 12.2 13.5 PLT 108* 77* BMP: Recent Labs 02/10/23215202/11/23 0015 02/11/23 0446 NA 118* 120* 121* K 3.8 3.8 4.2 CL 84* 88* 94* CO2 19* 21* 20* BUN 13 13 13 CREATININE 1.50* 1.35* 1.36* BNP: No results for input(s): BNP in the last 72 hours. ABGs: No results found for: PH, PCO2, PO2, HCO3, O2SAT Nephro Labs: amLODIPine, 2.5 mg, Oral, Daily dicyclomine, 20 mg, Oral, TID AC levothyroxine, 50 mcg, Oral, qAM AC losartan, 100 mg, Oral, Daily oxyCODONE, 10 mg, Oral, TID pantoprazole, 40 mg, Oral, Daily potassium chloride CR, 10 mEq, Oral, Daily tamsulosin, 0.4 mg, Oral, Daily sodium chloride, 100 mL/hr, Last Rate: 100 mL/hr (02/10/23 2345) PRN medications: acetaminophen OR acetaminophen, ondansetron ODT OR ondansetron, polyethylene glycol (PEG) 3350 Recent Labs 02/10/23 2240 COLORU Light Yellow CLARITYU Clear GLUCOSEU Normal BLOODU Negative UROBILINOGEN Normal Imaging: reviewed Assessment: Acute hyponatremia 2/2 suspected beer potomania +/- poor po intake in the setting of N/V/D 2. DENNYS 2/2 volume depletion 3. Severe alcohol use disorder 4. Anemia 5. Acute NAGMA 2/2 diarrhea Plan: -Na 121 -Check UA and urine studies -Fluid restriction: 1.2L -Encourage 3 meals a day high in protein and ensure supplements ordered -Need to control pain/vomiting with prn medications to suppress further ADH stimulation -Q6 Na checks -HIGH RISK of hyponatremia overcorrection -Na rate of correction not to exceed >8mEq/L/day to prevent neurological sequelae, please notify nephrology if rate of rise is exceeding above parameters -Check bladder scan x1 for pvr -Check TSH -C diff and iron studies pending -We will follow closely with you Thank you for the consult and the opportunity to participate in the care of this patient. Please do not hesitate to call with any questions or concerns. Ophelia Ramos APRN, ANIMAL CONTROL SPECIALIST [facility], [facility] [phone] office Associated attestation - Kennedi Pérez MD - 02/11/2023 4:00 PM EDT Seen and examined. Agree with above A and p. Acute hyponatremia DENNYS 2/2 ATN Alcohol abuse Acute metabolic acidosis (NAGMA) from diarrhea. Hyponatremia from beer potomania and poor solute intake for last few days. FR 1.2 L/day. Increase po protein intake to provide solute load. Control nausea, vomiting. Await next Na check. Recent DENNYS 2/2 ATN which was severe in 12/2022, monitoring renal function closely, has slowly improved over time. documented in this encounter [facility] 02-11-2023 Note Formatting of this n ote might be different from the original. Care Managment Initial Assessment Date: 02/11/2023 Patient Name: Woody Ni : 1960 Patient Information Source of Information: Patient Name/Contact Information: KINGSLEY CARL [phone] SIGNIFICANT OTHER FOR 25 YEARS Cognition/Language: WFL - Within Functional Limits Permission given to speak with patient underwriting account representative/caregiver as indicated: Yes Confirmation of Payer with patient/family: Yes Payer Name: MEDICARE AND MEDICAID : No Confirmation of Primary Care Physician: Confirmed PCP Name: DR. QUEZADA Seen in last 2 years?: Yes Primary Caregiver: Spouse/significant other If assistance needed, confirmed caregiver ready, willing and able to care for patient at discharge: Confirmed with: Living Arrangements Current Residence: House Number of Floors 2 Number of Entry Steps: 1 Bed/Bath Levels: Both first floor Facility: Facility Name: [facility] Plan to Return: Yes Lives with: Spouse/significant other, Extended family members (KINGSLEY AND HER 41 YEAR OLD SON) Support Systems: Spouse/significant other, Children Activities of Daily Living Ambulation: Independent (USES CANE WHEN OUTSIDE AND FWW WHEN "REALLY HURTING") Bathing/Dressing: Assistance Elimination/Continence/Toileting: Assistance Feeding: Independent Who Assists with Activities of Daily Living: Instrumental Activities of Daily Living Prescription Coverage: Yes Pharmacy Used: [facility] Medication Management: Prescription pick-up Who assists with medication securing and setup?: KINGSLEY MANAGES SECURING AND SETTING UP MEDS Transportation/Shopping: Assistance Provider Transportation/Shopping Assistance Provider Name: KINGSLEY Transportation Mode: Car Needs Assistance with Transportation at Discharge: No (KINGSLEY) Meal Preparation: Assistance Provider Meal Prep Assistance Provider Name: KINGSLEY Laundry/Cleaning: Assistance Provider Laundry/Cleaning Assistance Provider Name: KINGSLEY Finances/Bill Paying: Assistance Provider Finances/Bill Payer Assistance Provider Name: KINGSLEY Communication: Independent Types of Care Services/Equipment Utilized Care Services: Dialysis Type: NA Durable Medical Equipment: Cane, Walker, Shower Seat, Wheelchair (standard or power), Nebulizer Patient's Goal/Discharge Plan Patient expects to be discharged to: HOME Discharge Planning Actions: Continue to follow Patient's Choice Rights and [employer] and Collaborative Relationships Disclosed as Indicated for Post-Acute Care: [facility] Interdisciplinary Team Engagement: Social Work Referral for: Community Resources Additional Information: inpatient status from home with hyponatremia. . Discharge preparation checklist reviewed with patient. Has prescription coverage and able to afford medications. Lives at home with his significant other and her 41 year old son. Uses cane when he is outside and fww when he is "really hurting". States significant other assists with bathing and getting to the bathroom. Has nebulizer machine with medications. Do not use oxygen at home. Admits to drinking a 6 pack of beer daily, but states has not drank for 7- 8 days following his gallbladder surgery. States his pcp recently dc'd his metformin as his blood sugar was in the 80's and his hemoglobin a1c was 5.0. is denying anticipating any needs upon discharge and is declining home care services. States significant other Kingsley is able to assist at home if needed. Discharge plan is home with significant other when medically stable.. Lea Gee RN T [facility] 02-11-2023 Note Formatting of this n ote might be different from the original. Care Managment Initial Assessment Date: 02/11/2023 Patient Name: Woody Ni : 1960 Patient Information Source of Information: Patient Name/Contact Information: KINGSLEY CARL [phone] SIGNIFICANT OTHER FOR 25 YEARS Cognition/Language: WFL - Within Functional Limits Permission given to speak with patient underwriting account representative/caregiver as indicated: Yes Confirmation of Payer with patient/family: Yes Payer Name: MEDICARE AND MEDICAID : No Confirmation of Primary Care Physician: Confirmed PCP Name: DR. QUEZADA Seen in last 2 years?: Yes Primary Caregiver: Spouse/significant other If assistance needed, confirmed caregiver ready, willing and able to care for patient at discharge: Confirmed with: Living Arrangements Current Residence: House Number of Floors 2 Number of Entry Steps: 1 Bed/Bath Levels: Both first floor Facility: Facility Name: [facility] Plan to Return: Yes Lives with: Spouse/significant other, Extended family members (KINGSLEY AND HER 41 YEAR OLD SON) Support Systems: Spouse/significant other, Children Activities of Daily Living Ambulation: Independent (USES CANE WHEN OUTSIDE AND FWW WHEN "REALLY HURTING") Bathing/Dressing: Assistance Elimination/Continence/Toileting: Assistance Feeding: Independent Who Assists with Activities of Daily Living: Instrumental Activities of Daily Living Prescription Coverage: Yes Pharmacy Used: [facility] Medication Management: Prescription pick-up Who assists with medication securing and setup?: KINGSLEY MANAGES SECURING AND SETTING UP MEDS Transportation/Shopping: Assistance Provider Transportation/Shopping Assistance Provider Name: KINGSLEY Transportation Mode: Car Needs Assistance with Transportation at Discharge: No (KINGSLEY) Meal Preparation: Assistance Provider Meal Prep Assistance Provider Name: KINGSLEY Laundry/Cleaning: Assistance Provider Laundry/Cleaning Assistance Provider Name: KINGSLEY Finances/Bill Paying: Assistance Provider Finances/Bill Payer Assistance Provider Name: KINGSLEY Communication: Independent Types of Care Services/Equipment Utilized Care Services: Dialysis Type: NA Durable Medical Equipment: Cane, Walker, Shower Seat, Wheelchair (standard or power), Nebulizer Patient's Goal/Discharge Plan Patient expects to be discharged to: HOME Discharge Planning Actions: Continue to follow Patient's Choice Rights and [employer] and Collaborative Relationships Disclosed as Indicated for Post-Acute Care: NA Interdisciplinary Team Engagement: Social Work Referral for: Community Resources Additional Information: inpatient status from home with hyponatremia. . Discharge preparation checklist reviewed with patient. Has prescription coverage and able to afford medications. Lives at home with his significant other and her 41 year old son. Uses cane when he is outside and fww when he is "really hurting". States significant other assists with bathing and getting to the bathroom. Has nebulizer machine with medications. Do not use oxygen at home. Admits to drinking a 6 pack of beer daily, but states has not drank for 7- 8 days following his gallbladder surgery. States his pcp recently dc'd his metformin as his blood sugar was in the 80's and his hemoglobin a1c was 5.0. is denying anticipating any needs upon discharge and is declining home care services. States significant other Kingsley is able to assist at home if needed. Discharge plan is home with significant other when medically stable.. Lea Gee RN [facility] 02-11-2023 Consult note Associated Order (s): IP CONSULT TO NEPHROLOGY [facility] Consult Note Reason for Consult: hyponatremia Requesting Physician: Kacie Benz DO Chief Complaint: Chief Complaint Patient presents with Vomiting Diarrhea History of Present Ilness: Woody Ni is a 63 y.o. male who presents to the emergency department complaining of vomiting and diarrhea. Patient reports he has a history of the same. He had been feeling better after he had his gallbladder removed a few weeks ago. However, over the last few days he has been having recurrent symptoms. He was unable to drink today and he typically drinks (6) 16 ounce beers per day. He started to have some tremor related to lack of alcohol use. Nephrology is asked to see the patient for hyponatremia. Patient currently has an Na level of 121, previously 120, as low as 118 on presentation to the hospital and baseline ~128-130. Chronic abuse of alcohol +ve. Former tobacco use. Daily use of vape and marijuana. He takes lasix and olmesartan daily at home. +ve N/V/D. Denies pain. Past Medical History: Past Medical History: Diagnosis Date Acid reflux Anxiety Back pain Cirrhosis (HCC) Dehydration 12/22/22-12/26/22 admitted to [facility] Diabetes mellitus (HCC) Gout Hepatitis C Hypertension 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 Nausea and vomiting 12/22/22-12/26/22 admitted at [facility] Sleep apnea noncompliant with device Past Surgical History: Past Surgical History: Procedure Laterality Date BACK SURGERY x 2 CHOLECYSTECTOMY LAMINECTOMY LAP,CHOLECYSTECTOMY (HISTORICAL) N/A 01/05/2023 WISDOM TOOTH EXTRACTION Home Medications: No current facility-administered medications on file prior to encounter. Current Outpatient Medications on File Prior to Encounter Medication Sig Dispense Refill acetaminophen (Tylenol) 325 MG tablet every 4 hours as needed. albuterol (2.5 MG/3ML) 0.083% nebulizer solution Inhale 2.5 mg. PRN albuterol 108 (90 Base) MCG/ACT inhaler every 4 hours. alendronate (Fosamax) 70 MG tablet Take 70 mg by mouth once a week. amLODIPine (Norvasc) 2.5 MG tablet Take 2.5 mg by mouth in the morning. Bioflavonoid Products (Alana-C) tablet Every 24 hours. cloNIDine (Catapres) 0.1 MG tablet Take 0.1 mg by mouth. clotrimazole-betamethasone (Lotrisone) cream PRN colchicine 0.6 MG tablet every 8 hours. cyanocobalamin (Vitamin B-12) 1000 MCG/ML injection 1 mL intramuscularly once a month dicyclomine (Bentyl) 20 MG tablet Take 1 tablet (20 mg) by mouth in the morning and 1 tablet (20 mg) at noon and 1 tablet (20 mg) in the evening. Take before meals. 90 tablet 1 fluticasone (Flonase) 50 MCG/ACT nasal spray Administer 1 spray into affected nostril(s). furosemide (Lasix) 20 MG tablet Take 40 mg by mouth 2 times daily. ipratropium (Atrovent) 0.02 % nebulizer solution PRN ipratropium-albuterol (Duo-Neb) 0.5-2.5 mg/3 mL nebulizer solution every 6 hours. ketoconazole (NIZOral) 2 % shampoo EVERY THREE DAYS levothyroxine (Synthroid, Levoxyl) 50 MCG tablet TAKE 1 TABLET BY MOUTH DAILY 30 tablet 0 metFORMIN (Glucophage) 500 MG tablet Take 1,000 mg by mouth daily (with breakfast). niacin 100 MG tablet Every 24 hours. nitroglycerin (Nitrostat) 0.4 MG SL tablet 1 tab(s) sublingually every 5 minutes x 3 doses prn olmesartan (BENIcar) 40 MG tablet Every 24 hours. ondansetron (Zofran) 4 MG tablet Every 24 hours. oxyCODONE (Roxicodone) 10 MG immediate release tablet Take 10 mg by mouth in the morning and 10 mg at noon and 10 mg in the evening and 10 mg before bedtime. pantoprazole (ProtoNix) 40 MG EC tablet Take 40 mg by mouth daily. potassium chloride ER (Micro-K) 10 MEQ ER capsule Take 10 mEq by mouth in the morning. predniSONE (Deltasone) 20 MG tablet tamsulosin (Flomax) 0.4 MG 24 hr capsule Take 0.4 mg by mouth daily. [DISCONTINUED] Insulin Lispro (Humalog) 100 UNIT/ML solution injection Inject under the skin. [DISCONTINUED] lidocaine (Xylocaine) 2 % solution [DISCONTINUED] lidocaine (Xylocaine) 5 % ointment every 8 hours. PRN [DISCONTINUED] loperamide (Imodium A-D) 2 MG tablet every 6 hours. PRN [DISCONTINUED] loratadine (Claritin) 10 MG tablet Every 24 hours. PRN [DISCONTINUED] pravastatin (Pravachol) 40 MG tablet Take 40 mg by mouth in the morning. [DISCONTINUED] thiamine (Vitamin B-1) 100 MG tablet Every 24 hours. Allergies: Allopurinol, Codeine, and Penicillin g Social History: Social History Socioeconomic History Marital status: Spouse name: Not on file Number of children: Not on file Years of education: Not on file Highest education level: Not on file Occupational History Not on file Tobacco Use Smoking status: Former Types: Cigars Quit date: 1982 Years since quittin.3 Smokeless tobacco: Former Vaping Use Vaping Use: Every day Substances: CBD, canabis Devices: Disposable Substance and Sexual Activity Alcohol use: Yes Alcohol/week: 21.0 standard drinks Types: 21 Cans of beer per week Comment: TALL BOY ARE DOUBLE BEERS 42 per week Drug use: Yes Types: Marijuana Comment: daily Sexual activity: Not on file Other Topics Concern Not on file Social History Narrative Not on file Social Determinants of Health Financial Resource Strain: Not on file Food Insecurity: Not on file Transportation Needs: No Transportation Needs Lack of Transportation (Medical): No Lack of Transportation (Non-Medical): No Physical Activity: Not on file Stress: Not on file Social Connections: Not on file Intimate Partner Violence: Not At Risk Fear of Current or Ex-Partner: No Emotionally Abused: No Physically Abused: No Sexually Abused: No Housing Stability: Low Risk Unable to Pay for Housing in the Last Year: No Number of Places Lived in the Last Year: 1 Unstable Housing in the Last Year: No Family History: Family History Problem Relation Name Age of Onset Depression Mother Depression Maternal Grandmother Review of Systems: Pertinent positives stated above in HPI. All other systems were reviewed and were negative. Physical exam: Constitutional: Vitals: 02/11/23 0141 02/11/23 0142 02/11/23 0242 02/11/23 0744 BP: 118/85 (!) 150/94 134/84 BP Location: Left arm Pulse: 74 82 80 Resp: 12 20 20 Temp: 36.1 C (97 F) 36.1 C (96.9 F) TempSrc: Temporal Temporal SpO2: 99% 96% 98% Weight: 77.9 kg (171 lb 12.8 oz) Height: 1.778 m (5' 10") CURRENT TEMPERATURE: Temp: 36.1 C (96.9 F) MAXIMUM TEMPERATURE OVER 24HRS: Temp (24hrs), Av.2 C (97.2 F), Min:36.1 C (96.9 F), Max:36.5 C (97.7 F) CURRENT PULSE: Heart Rate: 80 CURRENT BLOOD PRESSURE: BP: 134/84 24HR BLOOD PRESSURE RANGE: Systolic (24hrs), Av , Min:118 , Max:150 ; Diastolic (24hrs), Av, Min:76, Max:98 24HR INTAKE/OUTPUT: No intake or output data in the 24 hours ending 02/11/23 0947 Physical Exam: Appearance: NAD, awake, alert, cooperative to exam Eyes: PERRLA, clear sclera ENT: hearing normal, no oral thrush, no erythema or exudate on hard or soft palate, tongue normal, moist mucus membranes Neck: supple, no JVD, no thyromegaly Respiratory: breathing unlabored, lungs CTA B/L anteriorly without w/r/r Cardiovascular: heart RRR without m/g/r, pedal pulses palpable Gastrointestinal: abdomen soft, non-tender, non-distended, normoactive bowel sounds. No masses or hernia. Musculoskeletal: normal muscle strength and tone, no edema of BLE Skin: warm and dry, no rash or wounds Neurologic: symmetric strength and sensation Psychiatric: alert and oriented to person/place/time, judgement and insight normal, memory intact, normal mood and range of affect Data: LIVER PROFILE: Recent Labs 02/10/232152 AST 148* ALT 121* BILITOT 1.3 ALKPHOS 80 CBC: Recent Labs 02/10/23215202/11/23 0607 WBC 4.9 2.4* RBC 3.56* 2.87* HGB 11.7* 9.4* HCT 32.1* 28.1* MCV 90.2 97.9 RDW 12.2 13.5 PLT 108* 77* BMP: Recent Labs 02/10/23215202/11/23 0015 02/11/23 0446 NA 118* 120* 121* K 3.8 3.8 4.2 CL 84* 88* 94* CO2 19* 21* 20* BUN 13 13 13 CREATININE 1.50* 1.35* 1.36* BNP: No results for input(s): BNP in the last 72 hours. ABGs: No results found for: PH, PCO2, PO2, HCO3, O2SAT Nephro Labs: amLODIPine, 2.5 mg, Oral, Daily dicyclomine, 20 mg, Oral, TID AC levothyroxine, 50 mcg, Oral, qAM AC losartan, 100 mg, Oral, Daily oxyCODONE, 10 mg, Oral, TID pantoprazole, 40 mg, Oral, Daily potassium chloride CR, 10 mEq, Oral, Daily tamsulosin, 0.4 mg, Oral, Daily sodium chloride, 100 mL/hr, Last Rate: 100 mL/hr (02/10/23 2345) PRN medications: acetaminophen OR acetaminophen, ondansetron ODT OR ondansetron, polyethylene glycol (PEG) 3350 Recent Labs 02/10/23 2240 COLORU Light Yellow CLARITYU Clear GLUCOSEU Normal BLOODU Negative UROBILINOGEN Normal Imaging: reviewed Assessment: Acute hyponatremia 2/2 suspected beer potomania +/- poor po intake in the setting of N/V/D 2. DENNYS 2/2 volume depletion 3. Severe alcohol use disorder 4. Anemia 5. Acute NAGMA 2/2 diarrhea Plan: -Na 121 -Check UA and urine studies -Fluid restriction: 1.2L -Encourage 3 meals a day high in protein and ensure supplements ordered -Need to control pain/vomiting with prn medications to suppress further ADH stimulation -Q6 Na checks -HIGH RISK of hyponatremia overcorrection -Na rate of correction not to exceed >8mEq/L/day to prevent neurological sequelae, please notify nephrology if rate of rise is exceeding above parameters -Check bladder scan x1 for pvr -Check TSH -C diff and iron studies pending -We will follow closely with you Thank you for the consult and the opportunity to participate in the care of this patient. Please do not hesitate to call with any questions or concerns. Ophelia Ramos APRN, ANIMAL CONTROL SPECIALIST [facility], [facility] [phone] office Associated attestation - Kennedi Pérez MD - 02/11/2023 4:00 PM EDT Seen and examined. Agree with above A and p. Acute hyponatremia DENNYS 2/2 ATN Alcohol abuse Acute metabolic acidosis (NAGMA) from diarrhea. Hyponatremia from beer potomania and poor solute intake for last few days. FR 1.2 L/day. Increase po protein intake to provide solute load. Control nausea, vomiting. Await next Na check. Recent DENNYS 2/2 ATN which was severe in 12/2022, monitoring renal function closely, has slowly improved over time. [facility] 02-11-2023 History and physical note Department of Family Medicine Attending History and Physical CHIEF COMPLAINT: n/v/d Reason for Admission: same hyponatremia History Obtained From: patient History of Present Illness Woody Ni is a 63 y.o. male who presents to the emergency department complaining of vomiting and diarrhea. Patient reports he has a history of the same. He had been feeling better after he had his gallbladder removed a few weeks ago. However, over the last few days he has been having recurrent symptoms. He was unable to drink today and he typically drinks 616 ounce beers per day. He started to have some tremor related to lack of alcohol use. Past Medical History: Past Medical History: Diagnosis Date Acid reflux Anxiety Back pain Cirrhosis (HCC) Dehydration 12/22/22-12/26/22 admitted to [facility] Diabetes mellitus (HCC) Gout Hepatitis C Hypertension 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 Nausea and vomiting 12/22/22-12/26/22 admitted at [facility] Sleep apnea noncompliant with device Past Surgical History: Past Surgical History: Procedure Laterality Date BACK SURGERY x 2 CHOLECYSTECTOMY LAMINECTOMY LAP,CHOLECYSTECTOMY (HISTORICAL) N/A 01/05/2023 WISDOM TOOTH EXTRACTION Medications Prior to Admission: Medications Prior to Admission Medication Sig Dispense Refill Last Dose acetaminophen (Tylenol) 325 MG tablet every 4 hours as needed. More than a month albuterol (2.5 MG/3ML) 0.083% nebulizer solution Inhale 2.5 mg. PRN More than a month albuterol 108 (90 Base) MCG/ACT inhaler every 4 hours. More than a month alendronate (Fosamax) 70 MG tablet Take 70 mg by mouth once a week. 02/09/2023 amLODIPine (Norvasc) 2.5 MG tablet Take 2.5 mg by mouth in the morning. 02/08/2023 Bioflavonoid Products (Alana-C) tablet Every 24 hours. More than a month cloNIDine (Catapres) 0.1 MG tablet Take 0.1 mg by mouth. 02/08/2023 clotrimazole-betamethasone (Lotrisone) cream PRN Past Month colchicine 0.6 MG tablet every 8 hours. Past Week cyanocobalamin (Vitamin B-12) 1000 MCG/ML injection 1 mL intramuscularly once a month 01/28/2023 dicyclomine (Bentyl) 20 MG tablet Take 1 tablet (20 mg) by mouth in the morning and 1 tablet (20 mg) at noon and 1 tablet (20 mg) in the evening. Take before meals. 90 tablet 1 Past Week fluticasone (Flonase) 50 MCG/ACT nasal spray Administer 1 spray into affected nostril(s). More than a month furosemide (Lasix) 20 MG tablet Take 40 mg by mouth 2 times daily. ipratropium (Atrovent) 0.02 % nebulizer solution PRN More than a month ipratropium-albuterol (Duo-Neb) 0.5-2.5 mg/3 mL nebulizer solution every 6 hours. More than a month ketoconazole (NIZOral) 2 % shampoo EVERY THREE DAYS Past Week levothyroxine (Synthroid, Levoxyl) 50 MCG tablet TAKE 1 TABLET BY MOUTH DAILY 30 tablet 0 Past Week metFORMIN (Glucophage) 500 MG tablet Take 1,000 mg by mouth daily (with breakfast). niacin 100 MG tablet Every 24 hours. Past Week nitroglycerin (Nitrostat) 0.4 MG SL tablet 1 tab(s) sublingually every 5 minutes x 3 doses prn More than a month olmesartan (BENIcar) 40 MG tablet Every 24 hours. Past Week ondansetron (Zofran) 4 MG tablet Every 24 hours. Past Week oxyCODONE (Roxicodone) 10 MG immediate release tablet Take 10 mg by mouth in the morning and 10 mg at noon and 10 mg in the evening and 10 mg before bedtime. Past Week pantoprazole (ProtoNix) 40 MG EC tablet Take 40 mg by mouth daily. Past Week potassium chloride ER (Micro-K) 10 MEQ ER capsule Take 10 mEq by mouth in the morning. Past Week predniSONE (Deltasone) 20 MG tablet Past Week tamsulosin (Flomax) 0.4 MG 24 hr capsule Take 0.4 mg by mouth daily. Past Week Allergies: Allopurinol, Codeine, and Penicillin g Social History: Social History Socioeconomic History Marital status: Tobacco Use Smoking status: Former Types: Cigars Quit date: 1982 Years since quittin.3 Smokeless tobacco: Former Vaping Use Vaping Use: Every day Substances: CBD, canabis Devices: Disposable Substance and Sexual Activity Alcohol use: Yes Alcohol/week: 21.0 standard drinks Types: 21 Cans of beer per week Comment: TALL BOY ARE DOUBLE BEERS 42 per week Drug use: Yes Types: Marijuana Comment: daily Social Determinants of Health Transportation Needs: No Transportation Needs Lack of Transportation (Medical): No Lack of Transportation (Non-Medical): No Intimate Partner Violence: Not At Risk Fear of Current or Ex-Partner: No Emotionally Abused: No Physically Abused: No Sexually Abused: No Housing Stability: Low Risk Unable to Pay for Housing in the Last Year: No Number of Places Lived in the Last Year: 1 Unstable Housing in the Last Year: No Family History: Family History Problem Relation Name Age of Onset Depression Mother Depression Maternal Grandmother REVIEW OF SYSTEMS: Review of Systems 10 point ros negative except for HPI Objective Vitals: BP 134/84 Pulse 80 Temp 36.1 C (96.9 F) (Temporal) Resp 20 Ht 5' 10" (1.778 m) Wt 171 lb 12.8 oz (77.9 kg) SpO2 98% BMI 24.65 kg/m Physical Exam Pt is alert and oriented x 3 Heent wnl Heart regular Lungs ctab Abd tender in the upper quad Ext no edema Assessment/Plan Patient Active Problem List Diagnosis Osteoarthritis of spine with radiculopathy, lumbar region Essential hypertension Hyponatremia Diabetes (HCC) Hypovolemia Cirrhosis (HCC) Chronic alcoholic hepatitis Asthma Severe malnutrition (CMS/HCC) (HCC) Thyroid disease SHAYLA (obstructive sleep apnea) Lumbar stenosis Postural dizziness with presyncope HLD (hyperlipidemia) Hepatitis Intractable nausea and vomiting Chronic pain syndrome Complication of surgical procedure Intercostal pain Low back pain Mild recurrent major depression (HCC) Myalgia Right hip pain Shoulder joint pain Acute kidney injury (CMS/HCC) (HCC) DENNYS (acute kidney injury) (CMS/HCC) (HCC) Gallbladder sludge RUQ pain Acute on chronic cholecystitis 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) N/V/D Abdominal pain Hyponatremia DENNYS Anemia H/o etoh abuse remote Plan Admit to med tele Consult nephro Consult GI Send stool for cultures Ivf hydration Check iron levels KACIE BENZ DO 02/11/23 9:20 AM T [facility] 02-11-2023 History and physical note Department of Family Medicine Attending History and Physical CHIEF COMPLAINT: n/v/d Reason for Admission: same hyponatremia History Obtained From: patient History of Present Illness Woody Ni is a 63 y.o. male who presents to the emergency department complaining of vomiting and diarrhea. Patient reports he has a history of the same. He had been feeling better after he had his gallbladder removed a few weeks ago. However, over the last few days he has been having recurrent symptoms. He was unable to drink today and he typically drinks 616 ounce beers per day. He started to have some tremor related to lack of alcohol use. Past Medical History: Past Medical History: Diagnosis Date Acid reflux Anxiety Back pain Cirrhosis (HCC) Dehydration 12/22/22-12/26/22 admitted to [facility] Diabetes mellitus (HCC) Gout Hepatitis C Hypertension 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 Nausea and vomiting 12/22/22-12/26/22 admitted at [facility] Sleep apnea noncompliant with device Past Surgical History: Past Surgical History: Procedure Laterality Date BACK SURGERY x 2 CHOLECYSTECTOMY LAMINECTOMY LAP,CHOLECYSTECTOMY (HISTORICAL) N/A 01/05/2023 WISDOM TOOTH EXTRACTION Medications Prior to Admission: Medications Prior to Admission Medication Sig Dispense Refill Last Dose acetaminophen (Tylenol) 325 MG tablet every 4 hours as needed. More than a month albuterol (2.5 MG/3ML) 0.083% nebulizer solution Inhale 2.5 mg. PRN More than a month albuterol 108 (90 Base) MCG/ACT inhaler every 4 hours. More than a month alendronate (Fosamax) 70 MG tablet Take 70 mg by mouth once a week. 02/09/2023 amLODIPine (Norvasc) 2.5 MG tablet Take 2.5 mg by mouth in the morning. 02/08/2023 Bioflavonoid Products (Alana-C) tablet Every 24 hours. More than a month cloNIDine (Catapres) 0.1 MG tablet Take 0.1 mg by mouth. 02/08/2023 clotrimazole-betamethasone (Lotrisone) cream PRN Past Month colchicine 0.6 MG tablet every 8 hours. Past Week cyanocobalamin (Vitamin B-12) 1000 MCG/ML injection 1 mL intramuscularly once a month 01/28/2023 dicyclomine (Bentyl) 20 MG tablet Take 1 tablet (20 mg) by mouth in the morning and 1 tablet (20 mg) at noon and 1 tablet (20 mg) in the evening. Take before meals. 90 tablet 1 Past Week fluticasone (Flonase) 50 MCG/ACT nasal spray Administer 1 spray into affected nostril(s). More than a month furosemide (Lasix) 20 MG tablet Take 40 mg by mouth 2 times daily. ipratropium (Atrovent) 0.02 % nebulizer solution PRN More than a month ipratropium-albuterol (Duo-Neb) 0.5-2.5 mg/3 mL nebulizer solution every 6 hours. More than a month ketoconazole (NIZOral) 2 % shampoo EVERY THREE DAYS Past Week levothyroxine (Synthroid, Levoxyl) 50 MCG tablet TAKE 1 TABLET BY MOUTH DAILY 30 tablet 0 Past Week metFORMIN (Glucophage) 500 MG tablet Take 1,000 mg by mouth daily (with breakfast). niacin 100 MG tablet Every 24 hours. Past Week nitroglycerin (Nitrostat) 0.4 MG SL tablet 1 tab(s) sublingually every 5 minutes x 3 doses prn More than a month olmesartan (BENIcar) 40 MG tablet Every 24 hours. Past Week ondansetron (Zofran) 4 MG tablet Every 24 hours. Past Week oxyCODONE (Roxicodone) 10 MG immediate release tablet Take 10 mg by mouth in the morning and 10 mg at noon and 10 mg in the evening and 10 mg before bedtime. Past Week pantoprazole (ProtoNix) 40 MG EC tablet Take 40 mg by mouth daily. Past Week potassium chloride ER (Micro-K) 10 MEQ ER capsule Take 10 mEq by mouth in the morning. Past Week predniSONE (Deltasone) 20 MG tablet Past Week tamsulosin (Flomax) 0.4 MG 24 hr capsule Take 0.4 mg by mouth daily. Past Week Allergies: Allopurinol, Codeine, and Penicillin g Social History: Social History Socioeconomic History Marital status: Tobacco Use Smoking status: Former Types: Cigars Quit date: 1982 Years since quittin.3 Smokeless tobacco: Former Vaping Use Vaping Use: Every day Substances: CBD, canabis Devices: Disposable Substance and Sexual Activity Alcohol use: Yes Alcohol/week: 21.0 standard drinks Types: 21 Cans of beer per week Comment: TALL BOY ARE DOUBLE BEERS 42 per week Drug use: Yes Types: Marijuana Comment: daily Social Determinants of Health Transportation Needs: No Transportation Needs Lack of Transportation (Medical): No Lack of Transportation (Non-Medical): No Intimate Partner Violence: Not At Risk Fear of Current or Ex-Partner: No Emotionally Abused: No Physically Abused: No Sexually Abused: No Housing Stability: Low Risk Unable to Pay for Housing in the Last Year: No Number of Places Lived in the Last Year: 1 Unstable Housing in the Last Year: No Family History: Family History Problem Relation Name Age of Onset Depression Mother Depression Maternal Grandmother REVIEW OF SYSTEMS: Review of Systems 10 point ros negative except for HPI Objective Vitals: BP 134/84 Pulse 80 Temp 36.1 C (96.9 F) (Temporal) Resp 20 Ht 5' 10" (1.778 m) Wt 171 lb 12.8 oz (77.9 kg) SpO2 98% BMI 24.65 kg/m Physical Exam Pt is alert and oriented x 3 Heent wnl Heart regular Lungs ctab Abd tender in the upper quad Ext no edema Assessment/Plan Patient Active Problem List Diagnosis Osteoarthritis of spine with radiculopathy, lumbar region Essential hypertension Hyponatremia Diabetes (HCC) Hypovolemia Cirrhosis (HCC) Chronic alcoholic hepatitis Asthma Severe malnutrition (CMS/HCC) (HCC) Thyroid disease SHAYLA (obstructive sleep apnea) Lumbar stenosis Postural dizziness with presyncope HLD (hyperlipidemia) Hepatitis Intractable nausea and vomiting Chronic pain syndrome Complication of surgical procedure Intercostal pain Low back pain Mild recurrent major depression (HCC) Myalgia Right hip pain Shoulder joint pain Acute kidney injury (CMS/HCC) (HCC) DENNYS (acute kidney injury) (CMS/HCC) (HCC) Gallbladder sludge RUQ pain Acute on chronic cholecystitis 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) N/V/D Abdominal pain Hyponatremia DENNYS Anemia H/o etoh abuse remote Plan Admit to med tele Consult nephro Consult GI Send stool for cultures Ivf hydration Check iron levels KACIE BENZ DO 02/11/23 9:20 AM documented in this encounter [facility] 02-11-2023 Note Formatting of this n ote might be different from the original. Admitted from home with n/v/d. Patient also has history of etoh abuse. Sodium was 118 on arrival to ER. Currently 121. Receiving IVF, GI and Renal are consulted. Stool specimens are pending. Hemoglobin, platelets, and wbc are down this am. Possibly due to ivf. Pt/ot evals are ordered and pending. Discharge plan remains pending clinical improvement and etoh withdrawal symptoms. May benefit from addiction med consult. . [facility] 02-11-2023 Note Formatting of this n ote might be different from the original. Admitted from home with n/v/d. Patient also has history of etoh abuse. Sodium was 118 on arrival to ER. Currently 121. Receiving IVF, GI and Renal are consulted. Stool specimens are pending. Hemoglobin, platelets, and wbc are down this am. Possibly due to ivf. Pt/ot evals are ordered and pending. Discharge plan remains pending clinical improvement and etoh withdrawal symptoms. May benefit from addiction med consult. . [facility] 02-11-2023 Emergency department Note Ice chips provided. No other needs at this time. Call light at bedside. Adri Parra 02/11/23 0019 [facility] 02-11-2023 Emergency department Note Ice chips provided. No other needs at this time. Call light at bedside. Adri Parra 02/11/23 0019 Per physicans they outsourced to Sergio Lynn new ETA will be [phone]. Ophelia Schultz RN 02/10/23 6524 Critical sodium level received from [place] in lab; sodium is 118, and primary nurse MEGGAN Jacinto notified. Aubree Ratliff RN 02/10/23 [address] [facility] ED Patient: Woody Ni : 1960 Date of Evaluation: 02/10/2023 ED Provider: Rubén Hoang DO Chief Complaint Chief Complaint Patient presents with Vomiting Diarrhea [place] Woody Ni is a 63 y.o. male who presents to the emergency department complaining of vomiting and diarrhea. Patient reports he has a history of the same. He had been feeling better after he had his gallbladder removed a few weeks ago. However, over the last few days he has been having recurrent symptoms. He was unable to drink today and he typically drinks 616 ounce beers per day. He started to have some tremor related to lack of alcohol use. Additional history obtained from : n/a Barriers to obtaining history from patient: n/a ROS: Review of Systems completed as follows: (Bold = positive, Not bold = negative) GENERAL: fevers, chills, malaise ENT: runny nose, congestion, sore throat, ear pain NEURO: weakness, numbness of tingling, headache CARDIOVASCULAR: chest pain, syncope PULMONARY: shortness of breath, cough, wheezing GASTROINTESTINAL: nausea, vomiting, abdominal pain, diarrhea, constipation, MUSCULOSKELETAL: pain GENITAL/URINARY: dysuria, hematuria, increased urinary frequency, hesitancy, flank pain SKIN: rash, lesions, wound Past History Past Medical History: Diagnosis Date Acid reflux Anxiety Back pain Cirrhosis (HCC) Dehydration 12/22/22-12/26/22 admitted to [facility] Diabetes mellitus (HCC) Gout Hepatitis C Hypertension 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 Nausea and vomiting 12/22/22-12/26/22 admitted at [facility] Sleep apnea noncompliant with device Past Surgical History: Procedure Laterality Date BACK SURGERY x 2 CHOLECYSTECTOMY LAMINECTOMY LAP,CHOLECYSTECTOMY (HISTORICAL) N/A 01/05/2023 WISDOM TOOTH EXTRACTION Social History Socioeconomic History Marital status: Tobacco Use Smoking status: Former Types: Cigars Quit date: 1982 Years since quittin.3 Smokeless tobacco: Former Vaping Use Vaping Use: Every day Substances: CBD, canabis Devices: Disposable Substance and Sexual Activity Alcohol use: Yes Alcohol/week: 21.0 standard drinks Types: 21 Cans of beer per week Comment: TALL BOY ARE DOUBLE BEERS 42 per week Drug use: Yes Types: Marijuana Comment: daily Social Determinants of Health Transportation Needs: No Transportation Needs Lack of Transportation (Medical): No Lack of Transportation (Non-Medical): No Intimate Partner Violence: Not At Risk Fear of Current or Ex-Partner: No Emotionally Abused: No Physically Abused: No Sexually Abused: No Housing Stability: Unknown Unable to Pay for Housing in the Last Year: No Unstable Housing in the Last Year: No I have reviewed the history above as provided by nursing notes. Medications/Allergies Previous Medications ACETAMINOPHEN (TYLENOL) 325 MG TABLET every 4 hours as needed. ALBUTEROL (2.5 MG/3ML) 0.083% NEBULIZER SOLUTION Inhale 2.5 mg. PRN ALBUTEROL 108 (90 BASE) MCG/ACT INHALER every 4 hours. ALENDRONATE (FOSAMAX) 70 MG TABLET Take 70 mg by mouth once a week. AMLODIPINE (NORVASC) 2.5 MG TABLET Take 2.5 mg by mouth in the morning. BIOFLAVONOID PRODUCTS (ALANA-C) TABLET Every 24 hours. CLONIDINE (CATAPRES) 0.1 MG TABLET Take 0.1 mg by mouth. CLOTRIMAZOLE-BETAMETHASONE (LOTRISONE) CREAM PRN COLCHICINE 0.6 MG TABLET every 8 hours. CYANOCOBALAMIN (VITAMIN B-12) 1000 MCG/ML INJECTION 1 mL intramuscularly once a month DICYCLOMINE (BENTYL) 20 MG TABLET Take 1 tablet (20 mg) by mouth in the morning and 1 tablet (20 mg) at noon and 1 tablet (20 mg) in the evening. Take before meals. FLUTICASONE (FLONASE) 50 MCG/ACT NASAL SPRAY Administer 1 spray into affected nostril(s). FUROSEMIDE (LASIX) 20 MG TABLET Take 20 mg by mouth 2 times daily. INSULIN LISPRO (HUMALOG) 100 UNIT/ML SOLUTION INJECTION Inject under the skin. IPRATROPIUM (ATROVENT) 0.02 % NEBULIZER SOLUTION PRN IPRATROPIUM-ALBUTEROL (DUO-NEB) 0.5-2.5 MG/3 ML NEBULIZER SOLUTION every 6 hours. KETOCONAZOLE (NIZORAL) 2 % SHAMPOO EVERY THREE DAYS LEVOTHYROXINE (SYNTHROID, LEVOXYL) 50 MCG TABLET TAKE 1 TABLET BY MOUTH DAILY METFORMIN (GLUCOPHAGE) 500 MG TABLET Take 1,000 mg by mouth daily (with breakfast). NIACIN 100 MG TABLET Every 24 hours. NITROGLYCERIN (NITROSTAT) 0.4 MG SL TABLET 1 tab(s) sublingually every 5 minutes x 3 doses prn OLMESARTAN (BENICAR) 40 MG TABLET Every 24 hours. ONDANSETRON (ZOFRAN) 4 MG TABLET Every 24 hours. OXYCODONE (ROXICODONE) 10 MG IMMEDIATE RELEASE TABLET Take 10 mg by mouth in the morning and 10 mg at noon and 10 mg in the evening and 10 mg before bedtime. PANTOPRAZOLE (PROTONIX) 40 MG EC TABLET Take 40 mg by mouth daily. POTASSIUM CHLORIDE ER (MICRO-K) 10 MEQ ER CAPSULE Take 10 mEq by mouth in the morning. PRAVASTATIN (PRAVACHOL) 40 MG TABLET Take 40 mg by mouth in the morning. PREDNISONE (DELTASONE) 20 MG TABLET TAMSULOSIN (FLOMAX) 0.4 MG 24 HR CAPSULE Take 0.4 mg by mouth daily. THIAMINE (VITAMIN B-1) 100 MG TABLET Every 24 hours. Allergies Allergen Reactions Allopurinol Other Breaks out in blisters Codeine Nausea Only Penicillin G Swelling I have reviewed the history above as provided by nursing notes. Physical Exam ED Triage Vitals [02/10/23 2132] Temp Heart Rate Resp BP 36.5 C (97.7 F) 95 16 139/88 SpO2 Temp Source Heart Rate Source Patient Position 98 % Oral Monitor -- BP Location FiO2 (%) -- -- GENERAL: The patient appears nourished and normally developed. Vital signs as documented. EYES: PERRL. No scleral icterus or orbital trauma noted. HEENT: Mucous membranes moist. Nares patent without copious rhinorrhea. LUNGS: Lungs are clear to auscultation, without any respiratory distress. CARDIAC: Rhythm is regular. No murmur appreciated ABDOMEN: Nontender, soft, with no obvious masses, and no peritoneal signs. EXTREMITIES: Non edematous, with no obvious deformities. SKIN: Good color, with no significant rashes. No pallor. NEURO: No obvious neurological deficits, normal sensation and strength bilaterally. Mild tremor noted. Diagnostics Labs: Results for orders placed or performed during the hospital encounter of 02/10/23 CBC auto differential Result Value Ref Range Auto WBC 4.9 3.6 - 10.7 10*3/uL RBC 3.56 (L) 4.40 - 5.90 10*6/uL Hemoglobin 11.7 (L) 13.0 - 18.0 g/dL Hematocrit 32.1 (L) 40.0 - 52.0 % MCV 90.2 80.0 - 98.0 fL MCH 32.9 26.0 - 34.0 pg MCHC 36.4 (H) 32.0 - 36.0 % RDW 12.2 11.5 - 14.5 % Platelets 108 (L) 140 - 440 10*3/uL MPV 9.6 7.4 - 12.4 fL Neutrophils Relative 71.4 40.0 - 80.0 % Lymphocytes Relative 13.5 (L) 20.0 - 40.0 % Monocytes Relative 12.9 (H) 2.0 - 10.0 % Eosinophils Relative 0.2 (L) 1.0 - 6.0 % Basophils Relative 0.2 0.0 - 2.0 % Immature Grans % 1.8 (H) <=0.0 % Neutrophils Absolute 3.5 1.8 - 7.0 10*3/uL Lymphocytes Absolute 0.7 (L) 1.0 - 4.3 10*3/uL Monocytes Absolute 0.6 0.0 - 0.8 10*3/uL Eosinophils Absolute 0.0 0.0 - 0.5 10*3/uL Basophils Absolute 0.0 0.0 - 0.2 10*3/uL Immature Grans Absolute 0.1 (H) <=0.0 10*3/uL Comprehensive metabolic panel Result Value Ref Range SODIUM 118 (LL) 135 - 145 mmol/L POTASSIUM 3.8 3.5 - 5.1 mmol/L CHLORIDE 84 (L) 98 - 107 mmol/L CARBON DIOXIDE 19 (L) 22 - 30 mmol/L ANION GAP 14 (H) 3 - 13 mmol/L UREA NITROGEN 13 9 - 20 mg/dL CREATININE 1.50 (H) 0.66 - 1.25 mg/dL GLUCOSE 151 (H) 70 - 100 mg/dL CALCIUM 9.0 8.4 - 10.4 mg/dL AST (SGOT) 148 (H) 15 - 46 U/L ALT 121 (H) 0 - 49 U/L ALKALINE PHOSPHATASE 80 38 - 126 U/L ALBUMIN 4.6 3.5 - 5.0 g/dL BILIRUBIN, TOTAL 1.3 0.2 - 1.3 mg/dL TOTAL PROTEIN 7.7 6.3 - 8.2 g/dL eGFR 52.0 (L) >60.0 mL/min/1.73m*2 Lipase Result Value Ref Range LIPASE 152 23 - 300 U/L Protime-INR Result Value Ref Range PROTHROMBIN TIME 12.3 (H) 9.0 - 12.0 s INR 1.1 0.9 - 1.1 Complete Urinalysis Result Value Ref Range Color, Urine Light Yellow Lt. Yellow Clarity, Urine Clear Clear pH, Urine 5.5 5.0 - 8.0 pH Leukocytes, Urine Negative Negative Emma/uL Nitrite, Urine Negative Negative Protein, Urine Negative Negative mg/dL Glucose, Urine Normal Normal (<70) mg/dL Bilirubin, Urine Negative Negative mg/dL Ketones, Urine Negative Negative mg/dL Urobilinogen, Urine Normal Normal (0-1) mg/dL Blood, Urine Negative Negative mg/dL SPECIFIC GRAVITY OF URINE (NUMERIC) 1.008 1.005 - 1.030 Basic metabolic panel Result Value Ref Range SODIUM 120 (L) 135 - 145 mmol/L POTASSIUM 3.8 3.5 - 5.1 mmol/L CHLORIDE 88 (L) 98 - 107 mmol/L CARBON DIOXIDE 21 (L) 22 - 30 mmol/L UREA NITROGEN 13 9 - 20 mg/dL CREATININE 1.35 (H) 0.66 - 1.25 mg/dL GLUCOSE 126 (H) 70 - 100 mg/dL CALCIUM 8.4 8.4 - 10.4 mg/dL ANION GAP 10 3 - 13 mmol/L eGFR 59.0 (L) >60.0 mL/min/1.73m*2 Radiographs: No orders to display Procedures/EKG: EKG Interpreted in [employer] software by myself SCREENINGS EMERGENCY DEPARTMENT COURSE and DIFFERENTIAL DIAGNOSIS/MDM: Vitals: Vitals: 02/11/23 0041 02/11/23 0112 02/11/23 0141 02/11/23 0142 BP: 131/79 126/76 118/85 Pulse: 77 73 74 Resp: 13 14 12 Temp: TempSrc: SpO2: 100% 99% 99% Weight: Height: The patient presented with a chief complaint of vomiting and diarrhea. Vital signs reviewed. Exam does not reveal overt abdominal tenderness. Patient does have mild tremor. Concern for mild alcohol withdrawal syndrome. I will treat with Zofran for nausea, IV Ativan for mild alcohol withdrawal. I will check CBC, metabolic panel, lipase given patient's history of cirrhosis and concern for possible pancreatitis, other acute electrolyte abnormality among other diagnoses. Patient was given a liter of IV fluids for possible dehydration. On repeat evaluation, patient is feeling slightly better. His CBC is essentially unremarkable however his BMP does show hyponatremia with sodium of 118. Chart review shows patient has had history of this in the past. He has corrected his sodium very quickly with IV fluid ministration. For this reason I will not order more than 1 L of normal saline at this time. His lipase is not elevated. Discussed with his admitting doctor, Dr. Benz who agreed to accept patient for admission to the hospital for hyponatremia. I did recheck a BMP and see that his sodium is already improved to 120 and I do not feel that he requires ICU level care at this time. Diagnoses as of 02/11/232 Hyponatremia Alcohol dependence with unspecified alcohol-induced disorder (HCC) Diagnostic tests considered but not performed: Symptoms CT scan of the abdomen pelvis however patient has minimal abdominal tenderness on exam and has known history of cirrhosis. I have low suspicion for ascites and therefore low suspicion for SBP External records reviewed: Reviewed general surgery follow-up on 01/28/2023 where patient was seen postoperatively for laparoscopic cholecystectomy with Dr. Fang. His pain was controlled and he is not having any need for additional narcotics. Reviewed discharge summary from 12/25/2022 where patient was admitted for acute kidney injury. His creatinine was as high as 6. He was treated with IV fluids and his creatinine improved. Discussions with other clinicians: Discussed with Dr. Benz regarding admission Chronic conditions impacting care: Alcoholic liver cirrhosis Social determinants of health affecting care: Alcohol abuse ED Medications managed: Medications amLODIPine (Norvasc) tablet 2.5 mg (has no administration in time range) dicyclomine (Bentyl) capsule 20 mg (has no administration in time range) levothyroxine (Synthroid, Levoxyl) tablet 50 mcg (has no administration in time range) metFORMIN (Glucophage) tablet 1,000 mg (has no administration in time range) olmesartan (BENIcar) tablet 40 mg (has no administration in time range) oxyCODONE (Roxicodone) immediate release tablet 10 mg (10 mg Oral Given 02/10/232349) pantoprazole (ProtoNix) EC tablet 40 mg (has no administration in time range) potassium chloride CR (Klor-Con M10) ER tablet 10 mEq (has no administration in time range) pravastatin (Pravachol) tablet 40 mg (has no administration in time range) tamsulosin (Flomax) 24 hr capsule 0.4 mg (has no administration in time range) acetaminophen (Tylenol) tablet 650 mg (has no administration in time range) Or acetaminophen (Tylenol) suppository 650 mg (has no administration in time range) ondansetron ODT (Zofran-ODT) disintegrating tablet 4 mg (has no administration in time range) Or ondansetron (Zofran) injection 4 mg (has no administration in time range) polyethylene glycol (PEG) 3350 (Miralax) packet 17 g (has no administration in time range) sodium chloride 0.9 % infusion (100 mL/hr IntraVENous New Bag 02/10/23 2345) sodium chloride 0.9 % bolus 1,000 mL (0 mL IntraVENous Stopped 02/10/23 2257) ondansetron (Zofran) injection 4 mg (4 mg IntraVENous Given 02/10/23 2158) LORazepam (Ativan) injection 1 mg (1 mg IntraVENous Given 02/10/23 2200) Patients symptoms are consistent with sepsis, severe sepsis or septic shock (if yes, use ".sepsiscoremeasure") - no Final Impression 1. Hyponatremia 2. Alcohol dependence with unspecified alcohol-induced disorder (HCC) DISPOSITION admit Comment: Please note this report has been produced using speech recognition software and may contain errors related to that system including errors in grammar, punctuation, and spelling, as well as words and phrases that may be inappropriate. If there are any questions or concerns please feel free to contact the dictating provider for clarification. Rubén Hoang DO [employer] Rubén Hoang DO 02/11/23 0212 Patient to room 12 with c/o N/V/D, headache, cough for 2 days. Patient reports testing himself for COVID 2 days ago with negative results. V/S obtained, call light within reach. documented in this encounter [facility] 02-10-2023 Emergency department Note Per physicans they outsourced to Sergio Shane new ETA will be [phone]. Ophelia Schultz RN 02/10/23 2336 [facility] 02-10-2023 Emergency department Note Critical sodium level received from [place] in lab; sodium is 118, and primary nurse MEGGAN Jacinto notified. Aubree Ratliff RN 02/10/23 2246 [facility] 02-10-2023 Emergency department Triage note Patient to room 12 with c/o N/V/D, headache, cough for 2 days. Patient reports testing himself for COVID 2 days ago with negative results. V/S obtained, call light within reach. [facility] 02-10-2023 Physician Emergency department Note Emergency Department Encounter [facility] ED Patient: Woody Ni : 1960 Date of Evaluation: 02/10/2023 ED Provider: Rubén Hoang DO Chief Complaint Chief Complaint Patient presents with Vomiting Diarrhea ABENA Ni is a 63 y.o. male who presents to the emergency department complaining of vomiting and diarrhea. Patient reports he has a history of the same. He had been feeling better after he had his gallbladder removed a few weeks ago. However, over the last few days he has been having recurrent symptoms. He was unable to drink today and he typically drinks 616 ounce beers per day. He started to have some tremor related to lack of alcohol use. Additional history obtained from : n/a Barriers to obtaining history from patient: n/a ROS: Review of Systems completed as follows: (Bold = positive, Not bold = negative) GENERAL: fevers, chills, malaise ENT: runny nose, congestion, sore throat, ear pain NEURO: weakness, numbness of tingling, headache CARDIOVASCULAR: chest pain, syncope PULMONARY: shortness of breath, cough, wheezing GASTROINTESTINAL: nausea, vomiting, abdominal pain, diarrhea, constipation, MUSCULOSKELETAL: pain GENITAL/URINARY: dysuria, hematuria, increased urinary frequency, hesitancy, flank pain SKIN: rash, lesions, wound Past History Past Medical History: Diagnosis Date Acid reflux Anxiety Back pain Cirrhosis (HCC) Dehydration 12/22/22-12/26/22 admitted to [facility] Diabetes mellitus (HCC) Gout Hepatitis C Hypertension 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 Nausea and vomiting 12/22/22-12/26/22 admitted at [facility] Sleep apnea noncompliant with device Past Surgical History: Procedure Laterality Date BACK SURGERY x 2 CHOLECYSTECTOMY LAMINECTOMY LAP,CHOLECYSTECTOMY (HISTORICAL) N/A 01/05/2023 WISDOM TOOTH EXTRACTION Social History Socioeconomic History Marital status: Tobacco Use Smoking status: Former Types: Cigars Quit date: 1982 Years since quittin.3 Smokeless tobacco: Former Vaping Use Vaping Use: Every day Substances: CBD, canabis Devices: Disposable Substance and Sexual Activity Alcohol use: Yes Alcohol/week: 21.0 standard drinks Types: 21 Cans of beer per week Comment: TALL BOY ARE DOUBLE BEERS 42 per week Drug use: Yes Types: Marijuana Comment: daily Social Determinants of Health Transportation Needs: No Transportation Needs Lack of Transportation (Medical): No Lack of Transportation (Non-Medical): No Intimate Partner Violence: Not At Risk Fear of Current or Ex-Partner: No Emotionally Abused: No Physically Abused: No Sexually Abused: No Housing Stability: Unknown Unable to Pay for Housing in the Last Year: No Unstable Housing in the Last Year: No I have reviewed the history above as provided by nursing notes. Medications/Allergies Previous Medications ACETAMINOPHEN (TYLENOL) 325 MG TABLET every 4 hours as needed. ALBUTEROL (2.5 MG/3ML) 0.083% NEBULIZER SOLUTION Inhale 2.5 mg. PRN ALBUTEROL 108 (90 BASE) MCG/ACT INHALER every 4 hours. ALENDRONATE (FOSAMAX) 70 MG TABLET Take 70 mg by mouth once a week. AMLODIPINE (NORVASC) 2.5 MG TABLET Take 2.5 mg by mouth in the morning. BIOFLAVONOID PRODUCTS (ALANA-C) TABLET Every 24 hours. CLONIDINE (CATAPRES) 0.1 MG TABLET Take 0.1 mg by mouth. CLOTRIMAZOLE-BETAMETHASONE (LOTRISONE) CREAM PRN COLCHICINE 0.6 MG TABLET every 8 hours. CYANOCOBALAMIN (VITAMIN B-12) 1000 MCG/ML INJECTION 1 mL intramuscularly once a month DICYCLOMINE (BENTYL) 20 MG TABLET Take 1 tablet (20 mg) by mouth in the morning and 1 tablet (20 mg) at noon and 1 tablet (20 mg) in the evening. Take before meals. FLUTICASONE (FLONASE) 50 MCG/ACT NASAL SPRAY Administer 1 spray into affected nostril(s). FUROSEMIDE (LASIX) 20 MG TABLET Take 20 mg by mouth 2 times daily. INSULIN LISPRO (HUMALOG) 100 UNIT/ML SOLUTION INJECTION Inject under the skin. IPRATROPIUM (ATROVENT) 0.02 % NEBULIZER SOLUTION PRN IPRATROPIUM-ALBUTEROL (DUO-NEB) 0.5-2.5 MG/3 ML NEBULIZER SOLUTION every 6 hours. KETOCONAZOLE (NIZORAL) 2 % SHAMPOO EVERY THREE DAYS LEVOTHYROXINE (SYNTHROID, LEVOXYL) 50 MCG TABLET TAKE 1 TABLET BY MOUTH DAILY METFORMIN (GLUCOPHAGE) 500 MG TABLET Take 1,000 mg by mouth daily (with breakfast). NIACIN 100 MG TABLET Every 24 hours. NITROGLYCERIN (NITROSTAT) 0.4 MG SL TABLET 1 tab(s) sublingually every 5 minutes x 3 doses prn OLMESARTAN (BENICAR) 40 MG TABLET Every 24 hours. ONDANSETRON (ZOFRAN) 4 MG TABLET Every 24 hours. OXYCODONE (ROXICODONE) 10 MG IMMEDIATE RELEASE TABLET Take 10 mg by mouth in the morning and 10 mg at noon and 10 mg in the evening and 10 mg before bedtime. PANTOPRAZOLE (PROTONIX) 40 MG EC TABLET Take 40 mg by mouth daily. POTASSIUM CHLORIDE ER (MICRO-K) 10 MEQ ER CAPSULE Take 10 mEq by mouth in the morning. PRAVASTATIN (PRAVACHOL) 40 MG TABLET Take 40 mg by mouth in the morning. PREDNISONE (DELTASONE) 20 MG TABLET TAMSULOSIN (FLOMAX) 0.4 MG 24 HR CAPSULE Take 0.4 mg by mouth daily. THIAMINE (VITAMIN B-1) 100 MG TABLET Every 24 hours. Allergies Allergen Reactions Allopurinol Other Breaks out in blisters Codeine Nausea Only Penicillin G Swelling I have reviewed the history above as provided by nursing notes. Physical Exam ED Triage Vitals [02/10/23 2132] Temp Heart Rate Resp BP 36.5 C (97.7 F) 95 16 139/88 SpO2 Temp Source Heart Rate Source Patient Position 98 % Oral Monitor -- BP Location FiO2 (%) -- -- GENERAL: The patient appears nourished and normally developed. Vital signs as documented. EYES: PERRL. No scleral icterus or orbital trauma noted. HEENT: Mucous membranes moist. Nares patent without copious rhinorrhea. LUNGS: Lungs are clear to auscultation, without any respiratory distress. CARDIAC: Rhythm is regular. No murmur appreciated ABDOMEN: Nontender, soft, with no obvious masses, and no peritoneal signs. EXTREMITIES: Non edematous, with no obvious deformities. SKIN: Good color, with no significant rashes. No pallor. NEURO: No obvious neurological deficits, normal sensation and strength bilaterally. Mild tremor noted. Diagnostics Labs: Results for orders placed or performed during the hospital encounter of 02/10/23 CBC auto differential Result Value Ref Range Auto WBC 4.9 3.6 - 10.7 10*3/uL RBC 3.56 (L) 4.40 - 5.90 10*6/uL Hemoglobin 11.7 (L) 13.0 - 18.0 g/dL Hematocrit 32.1 (L) 40.0 - 52.0 % MCV 90.2 80.0 - 98.0 fL MCH 32.9 26.0 - 34.0 pg MCHC 36.4 (H) 32.0 - 36.0 % RDW 12.2 11.5 - 14.5 % Platelets 108 (L) 140 - 440 10*3/uL MPV 9.6 7.4 - 12.4 fL Neutrophils Relative 71.4 40.0 - 80.0 % Lymphocytes Relative 13.5 (L) 20.0 - 40.0 % Monocytes Relative 12.9 (H) 2.0 - 10.0 % Eosinophils Relative 0.2 (L) 1.0 - 6.0 % Basophils Relative 0.2 0.0 - 2.0 % Immature Grans % 1.8 (H) <=0.0 % Neutrophils Absolute 3.5 1.8 - 7.0 10*3/uL Lymphocytes Absolute 0.7 (L) 1.0 - 4.3 10*3/uL Monocytes Absolute 0.6 0.0 - 0.8 10*3/uL Eosinophils Absolute 0.0 0.0 - 0.5 10*3/uL Basophils Absolute 0.0 0.0 - 0.2 10*3/uL Immature Grans Absolute 0.1 (H) <=0.0 10*3/uL Comprehensive metabolic panel Result Value Ref Range SODIUM 118 (LL) 135 - 145 mmol/L POTASSIUM 3.8 3.5 - 5.1 mmol/L CHLORIDE 84 (L) 98 - 107 mmol/L CARBON DIOXIDE 19 (L) 22 - 30 mmol/L ANION GAP 14 (H) 3 - 13 mmol/L UREA NITROGEN 13 9 - 20 mg/dL CREATININE 1.50 (H) 0.66 - 1.25 mg/dL GLUCOSE 151 (H) 70 - 100 mg/dL CALCIUM 9.0 8.4 - 10.4 mg/dL AST (SGOT) 148 (H) 15 - 46 U/L ALT 121 (H) 0 - 49 U/L ALKALINE PHOSPHATASE 80 38 - 126 U/L ALBUMIN 4.6 3.5 - 5.0 g/dL BILIRUBIN, TOTAL 1.3 0.2 - 1.3 mg/dL TOTAL PROTEIN 7.7 6.3 - 8.2 g/dL eGFR 52.0 (L) >60.0 mL/min/1.73m*2 Lipase Result Value Ref Range LIPASE 152 23 - 300 U/L Protime-INR Result Value Ref Range PROTHROMBIN TIME 12.3 (H) 9.0 - 12.0 s INR 1.1 0.9 - 1.1 Complete Urinalysis Result Value Ref Range Color, Urine Light Yellow Lt. Yellow Clarity, Urine Clear Clear pH, Urine 5.5 5.0 - 8.0 pH Leukocytes, Urine Negative Negative Emma/uL Nitrite, Urine Negative Negative Protein, Urine Negative Negative mg/dL Glucose, Urine Normal Normal (<70) mg/dL Bilirubin, Urine Negative Negative mg/dL Ketones, Urine Negative Negative mg/dL Urobilinogen, Urine Normal Normal (0-1) mg/dL Blood, Urine Negative Negative mg/dL SPECIFIC GRAVITY OF URINE (NUMERIC) 1.008 1.005 - 1.030 Basic metabolic panel Result Value Ref Range SODIUM 120 (L) 135 - 145 mmol/L POTASSIUM 3.8 3.5 - 5.1 mmol/L CHLORIDE 88 (L) 98 - 107 mmol/L CARBON DIOXIDE 21 (L) 22 - 30 mmol/L UREA NITROGEN 13 9 - 20 mg/dL CREATININE 1.35 (H) 0.66 - 1.25 mg/dL GLUCOSE 126 (H) 70 - 100 mg/dL CALCIUM 8.4 8.4 - 10.4 mg/dL ANION GAP 10 3 - 13 mmol/L eGFR 59.0 (L) >60.0 mL/min/1.73m*2 Radiographs: No orders to display Procedures/EKG: EKG Interpreted in [employer] software by myself SCREENINGS EMERGENCY DEPARTMENT COURSE and DIFFERENTIAL DIAGNOSIS/MDM: Vitals: Vitals: 02/11/23 0041 02/11/23 0112 02/11/23 0141 02/11/23 0142 BP: 131/79 126/76 118/85 Pulse: 77 73 74 Resp: 13 14 12 Temp: TempSrc: SpO2: 100% 99% 99% Weight: Height: The patient presented with a chief complaint of vomiting and diarrhea. Vital signs reviewed. Exam does not reveal overt abdominal tenderness. Patient does have mild tremor. Concern for mild alcohol withdrawal syndrome. I will treat with Zofran for nausea, IV Ativan for mild alcohol withdrawal. I will check CBC, metabolic panel, lipase given patient's history of cirrhosis and concern for possible pancreatitis, other acute electrolyte abnormality among other diagnoses. Patient was given a liter of IV fluids for possible dehydration. On repeat evaluation, patient is feeling slightly better. His CBC is essentially unremarkable however his BMP does show hyponatremia with sodium of 118. Chart review shows patient has had history of this in the past. He has corrected his sodium very quickly with IV fluid ministration. For this reason I will not order more than 1 L of normal saline at this time. His lipase is not elevated. Discussed with his admitting doctor, Dr. Benz who agreed to accept patient for admission to the hospital for hyponatremia. I did recheck a BMP and see that his sodium is already improved to 120 and I do not feel that he requires ICU level care at this time. Diagnoses as of 02/11/23211 Hyponatremia Alcohol dependence with unspecified alcohol-induced disorder (HCC) Diagnostic tests considered but not performed: Symptoms CT scan of the abdomen pelvis however patient has minimal abdominal tenderness on exam and has known history of cirrhosis. I have low suspicion for ascites and therefore low suspicion for SBP External records reviewed: Reviewed general surgery follow-up on 01/28/2023 where patient was seen postoperatively for laparoscopic cholecystectomy with Dr. Fang. His pain was controlled and he is not having any need for additional narcotics. Reviewed discharge summary from 12/25/2022 where patient was admitted for acute kidney injury. His creatinine was as high as 6. He was treated with IV fluids and his creatinine improved. Discussions with other clinicians: Discussed with Dr. Benz regarding admission Chronic conditions impacting care: Alcoholic liver cirrhosis Social determinants of health affecting care: Alcohol abuse ED Medications managed: Medications amLODIPine (Norvasc) tablet 2.5 mg (has no administration in time range) dicyclomine (Bentyl) capsule 20 mg (has no administration in time range) levothyroxine (Synthroid, Levoxyl) tablet 50 mcg (has no administration in time range) metFORMIN (Glucophage) tablet 1,000 mg (has no administration in time range) olmesartan (BENIcar) tablet 40 mg (has no administration in time range) oxyCODONE (Roxicodone) immediate release tablet 10 mg (10 mg Oral Given 02/10/23 2350) pantoprazole (ProtoNix) EC tablet 40 mg (has no administration in time range) potassium chloride CR (Klor-Con M10) ER tablet 10 mEq (has no administration in time range) pravastatin (Pravachol) tablet 40 mg (has no administration in time range) tamsulosin (Flomax) 24 hr capsule 0.4 mg (has no administration in time range) acetaminophen (Tylenol) tablet 650 mg (has no administration in time range) Or acetaminophen (Tylenol) suppository 650 mg (has no administration in time range) ondansetron ODT (Zofran-ODT) disintegrating tablet 4 mg (has no administration in time range) Or ondansetron (Zofran) injection 4 mg (has no administration in time range) polyethylene glycol (PEG) 3350 (Miralax) packet 17 g (has no administration in time range) sodium chloride 0.9 % infusion (100 mL/hr IntraVENous New Bag 02/10/23 2345) sodium chloride 0.9 % bolus 1,000 mL (0 mL IntraVENous Stopped 02/10/23 2257) ondansetron (Zofran) injection 4 mg (4 mg IntraVENous Given 02/10/232157) LORazepam (Ativan) injection 1 mg (1 mg IntraVENous Given 02/10/232199) Patients symptoms are consistent with sepsis, severe sepsis or septic shock (if yes, use ".sepsiscoremeasure") - no Final Impression 1. Hyponatremia 2. Alcohol dependence with unspecified alcohol-induced disorder (HCC) DISPOSITION admit Comment: Please note this report has been produced using speech recognition software and may contain errors related to that system including errors in grammar, punctuation, and spelling, as well as words and phrases that may be inappropriate. If there are any questions or concerns please feel free to contact the dictating provider for clarification. Rubén Hoang DO [employer] Rubén Hoang DO 02/11/23 0212 [facility] 01-28-2023 History of Present illness Narrative [facility] - Surgery Patient Name: Woody Ni Date: 01/28/23 S: Woody Ni follows up for a post operative visit after undergoing a laparoscopic cholecystectomy, Liver bx with Dr Fang on 01/05/23. He is doing well without any major postoperative complications. His pain control is well controlled and he is not asking for narcotic refills. His bowel function has returned to normal without constipation or diarrhea. His appetite is returning to normal but reports still cannot tolerate meat. Will have nausea after eating meat. Reports h/o nausea with intermittent emesis for the past 20 years and has been taking either phenergan or zofran during this time. Currently uses marijuana which is helpful. He is still drinking beer on daily basis. We discussed his pathology being positive for cirrhosis and the need for immediate cessation of alcohol intake. Received letter from his GI specialist to make appt. He is pleased to report the RUQ pain has resolved since surgery. Allergies Allergen Reactions Allopurinol Other Breaks out in blisters Codeine Nausea Only Penicillin G Swelling Current Outpatient Medications Medication Sig Dispense Refill acetaminophen (Tylenol) 325 MG tablet every 4 hours as needed. albuterol (2.5 MG/3ML) 0.083% nebulizer solution Inhale 2.5 mg. PRN albuterol 108 (90 Base) MCG/ACT inhaler every 4 hours. alendronate (Fosamax) 70 MG tablet Take 70 mg by mouth once a week. amLODIPine (Norvasc) 2.5 MG tablet Take 2.5 mg by mouth in the morning. clotrimazole-betamethasone (Lotrisone) cream PRN colchicine 0.6 MG tablet every 8 hours. cyanocobalamin (Vitamin B-12) 1000 MCG/ML injection 1 mL intramuscularly once a month dicyclomine (Bentyl) 20 MG tablet Take 1 tablet (20 mg) by mouth in the morning and 1 tablet (20 mg) at noon and 1 tablet (20 mg) in the evening. Take before meals. 90 tablet 1 fluticasone (Flonase) 50 MCG/ACT nasal spray Administer 1 spray into affected nostril(s). furosemide (Lasix) 20 MG tablet Take 20 mg by mouth 2 times daily. ipratropium (Atrovent) 0.02 % nebulizer solution PRN ipratropium-albuterol (Duo-Neb) 0.5-2.5 mg/3 mL nebulizer solution every 6 hours. ketoconazole (NIZOral) 2 % shampoo EVERY THREE DAYS levothyroxine (Synthroid, Levoxyl) 50 MCG tablet TAKE 1 TABLET BY MOUTH DAILY 30 tablet 0 levothyroxine (Synthroid, Levoxyl) 50 MCG tablet Take by mouth. loperamide (Imodium A-D) 2 MG tablet every 6 hours. PRN loratadine (Claritin) 10 MG tablet Every 24 hours. PRN metFORMIN (Glucophage) 500 MG tablet Take 1,000 mg by mouth daily (with breakfast). niacin 100 MG tablet Every 24 hours. nitroglycerin (Nitrostat) 0.4 MG SL tablet 1 tab(s) sublingually every 5 minutes x 3 doses prn olmesartan (BENIcar) 40 MG tablet Every 24 hours. ondansetron (Zofran) 4 MG tablet Every 24 hours. oxyCODONE (Roxicodone) 10 MG immediate release tablet Take 10 mg by mouth in the morning and 10 mg at noon and 10 mg in the evening and 10 mg before bedtime. pantoprazole (ProtoNix) 40 MG EC tablet Take 40 mg by mouth daily. potassium chloride ER (Micro-K) 10 MEQ ER capsule Take 10 mEq by mouth in the morning. pravastatin (Pravachol) 40 MG tablet Take 40 mg by mouth in the morning. tamsulosin (Flomax) 0.4 MG 24 hr capsule Take 0.4 mg by mouth daily. acetaminophen (Tylenol) 325 MG tablet every 4 hours. albuterol 108 (90 Base) MCG/ACT inhaler INHALE TWO PUFFS BY MOUTH FOUR TIMES DAILY amLODIPine (Norvasc) 2.5 MG tablet Take 1 tablet by mouth daily. Bioflavonoid Products (Alana-C) tablet Every 24 hours. cloNIDine (Catapres) 0.1 MG tablet Take 0.1 mg by mouth. dicyclomine (Bentyl) 20 MG tablet Take by mouth. fluticasone (Flonase) 50 MCG/ACT nasal spray Every 24 hours. folic acid (Folvite) 1 MG tablet TAKE 1 TABLET BY MOUTH DAILY (Patient not taking: Reported on 01/28/2023) 30 tablet 0 Insulin Lispro (Humalog) 100 UNIT/ML solution injection Inject under the skin. levothyroxine (Synthroid, Levoxyl) 75 MCG tablet Every 24 hours. lidocaine (Xylocaine) 2 % solution lidocaine (Xylocaine) 5 % ointment every 8 hours. PRN loratadine (Claritin) 10 MG tablet Every 24 hours. ondansetron ODT (Zofran-ODT) [address] 4-8 mg under the tongue. PRN predniSONE (Deltasone) 20 MG tablet thiamine (Vitamin B-1) 100 MG tablet Every 24 hours. No current facility-administered medications for this visit. Past Medical History: Diagnosis Date Acid reflux Anxiety Back pain Cirrhosis (HCC) Dehydration 12/22/22-12/26/22 admitted to [facility] Diabetes mellitus (HCC) Gout Hepatitis C Hypertension 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 Nausea and vomiting 12/22/22-12/26/22 admitted at [facility] Sleep apnea noncompliant with device O: BP 130/64 (BP Location: Right arm, Patient Position: Sitting, BP Cuff Size: Large adult) Pulse 86 Temp 36.8 C (98.2 F) (Temporal) Ht 5' 10" (1.778 m) Wt 177 lb (80.3 kg) BMI 25.40 kg/m Physical Exam: The wounds are healing well. There is no evidence of infection, erythema or hernia. Small non tender seroma at umbilicus. No fluid wave noted on abdominal exam today. No jaundice. Pathology: Final Diagnosis A. Liver, wedge biopsy: - Consistent with cirrhosis with mild steatosis Comment: Sections demonstrate a micronodular liver architecture highlighted with a trichrome stain. There is mild macrovesicular steatosis occupying approximately 10% of the liver volume. There is no evidence of ballooning degeration, lobular activity, or Aurelia's hyaline. An iron stain is negative for increased iron storage. B. Gallbladder, cholecystectomy: - Mild chronic cholecystitis Electronically signed by Philip Rodriguez Assessment/Plan Woody was seen today for post-op. Diagnoses and all orders for this visit: Encounter for postoperative care (Primary) Gallbladder sludge 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) He may advance diet as tolerated. He may increase their activity to a normal level yet refrain from lifting greater than 15# for one month after surgery. Again counseled on discontinuation of alcohol consumption and need to make f/u with GI. He can follow-up with us prn. The patient was seen and examined independently and relevant data reviewed by myself. A full chart review was performed. Patient Care Team: Jani Quezada as PCP - General Ana Callaway MD (Gastroenterology) documented in this encounter [facility] 01-12-2023 Telephone encounter Note Called and spoke to Kingsley and gave her the information regarding drainage. She voiced understanding. They have not yet made appt with GI [facility] 01-12-2023 Miscellaneous Notes Called and spoke to Kingsley and gave her the information regarding drainage. She voiced understanding. They have not yet made appt with GI Patient has ascites from his cirrhotic liver. This is a build up of fluid in his abdomen. He is going to continue to have drainage until wound closes which can take a few weeks. Need to continue to change dressing as needed. Please ask if he made appt with GI. Thanks. Name of caller: Kingsley Contact phone number: [phone] Relationship to Patient: spouse Provider: Dr Fang Practice: [facility] [place] Chief Complaint/Reason for Call: Kingsley states pt was told to call today with an update on his wound. Kingsley states that there has been no change and there continues to be drainage from the wound especially when pt moves. Kingsley states that the pt has not developed any other symptoms. Please advise. Best time of day caller can be reached: any Patient advised that office/PCP has 24-48 business hours to return their call: N/A documented in this encounter [facility] 01-12-2023 Telephone encounter Note Patient has ascites from his cirrhotic liver. This is a build up of fluid in his abdomen. He is going to continue to have drainage until wound closes which can take a few weeks. Need to continue to change dressing as needed. Please ask if he made appt with GI. Thanks. [facility] 01-12-2023 Telephone encounter Note Name of caller: Kingsley Contact phone number: [phone] Relationship to Patient: spouse Provider: Dr Fang Practice: [facility] [place] Chief Complaint/Reason for Call: Kingsley states pt was told to call today with an update on his wound. Kingsley states that there has been no change and there continues to be drainage from the wound especially when pt moves. Kingsley states that the pt has not developed any other symptoms. Please advise. Best time of day caller can be reached: any Patient advised that office/PCP has 24-48 business hours to return their call: N/A [facility] 01-09-2023 Emergency department Note Pt given chux and dressing supplies to go home with. Instructed to increase Lasix to 40mg Thursday, Thursday and Thursday. Pt and verbalized understanding Emilee Gonzalez RN 01/09/23 1406 [facility] 01-09-2023 Emergency department Note Pt given chux and dressing supplies to go home with. Instructed to increase Lasix to 40mg Thursday, Thursday and Thursday. Pt and verbalized understanding Emilee Gonzalez RN 01/09/23 1409 Waiting for call back from Dr. Zografakis. Pt and aware Emilee Gonzalez RN 01/09/23 1351 EMERGENCY DEPARTMENT ENCOUNTER Pt Name: Woody Ni Birthdate 1960 Date of evaluation: 01/09/2023 ED Provider: JÚNIOR LO MD CHIEF COMPLAINT Chief Complaint Patient presents with Post-op Problem Leaking fluid from incision site HISTORY OF PRESENT ILLNESS (Location/Symptom, Timing/Onset, Context/Setting, Quality, Duration, Modifying Factors, Severity) Note limiting factors. I wore appropriate PPE for the entirety of this encounter. HPI Woody Ni is a 62 y.o. male who presents to the emergency department with chief complaint of leaking from an abdominal incision from a laparoscopic cholecystectomy. No increase in pain. States that it is a clear liquid without any odor. Denies any fevers. No nausea no vomiting Nursing Notes were reviewed. Limitations to history: None Outside historians: None REVIEW OF SYSTEMS Review of Systems Pertinent positives and negatives as per HPI. PAST MEDICAL HISTORY Past Medical History: Diagnosis Date Acid reflux Anxiety Back pain Cirrhosis (CMS/HCC) (HCC) Dehydration 12/22/22-12/26/22 admitted to [facility] Diabetes mellitus (HCC) Gout Hepatitis C Hypertension 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 Nausea and vomiting 12/22/22-12/26/22 admitted at [facility] Sleep apnea noncompliant with device SURGICAL HISTORY Past Surgical History: Procedure Laterality Date BACK SURGERY x 2 LAMINECTOMY LAP,CHOLECYSTECTOMY (HISTORICAL) N/A 01/05/2023 WISDOM TOOTH EXTRACTION CURRENT MEDICATIONS Previous Medications ACETAMINOPHEN (TYLENOL) 325 MG TABLET every 4 hours as needed. ACETAMINOPHEN (TYLENOL) 325 MG TABLET every 4 hours. ALBUTEROL (2.5 MG/3ML) 0.083% NEBULIZER SOLUTION Inhale 2.5 mg. PRN ALBUTEROL (PROAIR HFA) 108 (90 BASE) MCG/ACT INHALER every 4 hours. ALBUTEROL 108 (90 BASE) MCG/ACT INHALER INHALE TWO PUFFS BY MOUTH FOUR TIMES DAILY ALENDRONATE (FOSAMAX) 70 MG TABLET Take 70 mg by mouth once a week. AMLODIPINE (NORVASC) 2.5 MG TABLET Take 2.5 mg by mouth in the morning. AMLODIPINE (NORVASC) 2.5 MG TABLET Take 1 tablet by mouth daily. BIOFLAVONOID PRODUCTS (ALANA-C) TABLET Every 24 hours. CLOTRIMAZOLE-BETAMETHASONE (LOTRISONE) CREAM PRN COLCHICINE 0.6 MG TABLET every 8 hours. CYANOCOBALAMIN (VITAMIN B-12 IJ) Inject as directed every 30 (thirty) days. CYANOCOBALAMIN (VITAMIN B-12) 1000 MCG/ML INJECTION 1 mL intramuscularly once a month DICYCLOMINE (BENTYL) 20 MG TABLET Take 1 tablet (20 mg) by mouth in the morning and 1 tablet (20 mg) at noon and 1 tablet (20 mg) in the evening. Take before meals. DICYCLOMINE (BENTYL) 20 MG TABLET Take by mouth. FLUTICASONE (FLONASE) 50 MCG/ACT NASAL SPRAY Administer 1 spray into affected nostril(s). FLUTICASONE (FLONASE) 50 MCG/ACT NASAL SPRAY Every 24 hours. FOLIC ACID (FOLVITE) 1 MG TABLET TAKE 1 TABLET BY MOUTH DAILY FUROSEMIDE (LASIX) 20 MG TABLET Take 20 mg by mouth daily. IPRATROPIUM (ATROVENT) 0.02 % NEBULIZER SOLUTION PRN IPRATROPIUM-ALBUTEROL (DUO-NEB) 0.5-2.5 MG/3 ML NEBULIZER SOLUTION every 6 hours. KETOCONAZOLE (NIZORAL) 2 % SHAMPOO EVERY THREE DAYS LEVOTHYROXINE (SYNTHROID, LEVOXYL) 50 MCG TABLET TAKE 1 TABLET BY MOUTH DAILY LEVOTHYROXINE (SYNTHROID, LEVOXYL) 75 MCG TABLET Every 24 hours. LIDOCAINE (XYLOCAINE) 2 % SOLUTION LIDOCAINE (XYLOCAINE) 5 % OINTMENT every 8 hours. PRN LOPERAMIDE (IMODIUM A-D) 2 MG TABLET every 6 hours. PRN LORATADINE (CLARITIN) 10 MG TABLET Every 24 hours. PRN LORATADINE (CLARITIN) 10 MG TABLET Every 24 hours. METFORMIN (GLUCOPHAGE) 500 MG TABLET Take 1,000 mg by mouth daily (with breakfast). NIACIN 100 MG TABLET Every 24 hours. NITROGLYCERIN (NITROSTAT) 0.4 MG SL TABLET 1 tab(s) sublingually every 5 minutes x 3 doses prn OLMESARTAN (BENICAR) 40 MG TABLET Take 40 mg by mouth daily. OLMESARTAN (BENICAR) 40 MG TABLET Every 24 hours. ONDANSETRON (ZOFRAN) 4 MG TABLET Take 1 tablet (4 mg) by mouth every 8 hours as needed for vomiting or nausea for up to 7 days. ONDANSETRON (ZOFRAN) 4 MG TABLET Every 24 hours. ONDANSETRON ODT (ZOFRAN-ODT) [address] 4-8 mg under the tongue. PRN OXYCODONE (ROXICODONE) 10 MG IMMEDIATE RELEASE TABLET Take 10 mg by mouth in the morning and 10 mg at noon and 10 mg in the evening and 10 mg before bedtime. OXYCODONE-ACETAMINOPHEN (PERCOCET) 10-325 MG TABLET Take 1 tablet by mouth every 4 hours as needed for severe pain (7-10) for up to 7 days. PANTOPRAZOLE (PROTONIX) 40 MG EC TABLET Take 40 mg by mouth daily. POTASSIUM CHLORIDE CR (KLOR-CON) 10 MEQ ER TABLET Take 10 mEq by mouth daily. POTASSIUM CHLORIDE ER (MICRO-K) 10 MEQ ER CAPSULE Take 10 mEq by mouth in the morning. PRAVASTATIN (PRAVACHOL) 40 MG TABLET Take 40 mg by mouth in the morning. PREDNISONE (DELTASONE) 20 MG TABLET TAMSULOSIN (FLOMAX) 0.4 MG 24 HR CAPSULE Take 0.4 mg by mouth daily. THIAMINE (VITAMIN B-1) 100 MG TABLET Every 24 hours. ALLERGIES Allopurinol, Codeine, and Penicillin g FAMILY HISTORY Family History Problem Relation Name Age of Onset Depression Mother Depression Maternal Grandmother SOCIAL HISTORY Social History Socioeconomic History Marital status: Tobacco Use Smoking status: Former Types: Cigars Quit date: 1982 Years since quittin.2 Smokeless tobacco: Former Vaping Use Vaping Use: Every day Substances: CBD, canabis Devices: Disposable Substance and Sexual Activity Alcohol use: Yes Alcohol/week: 21.0 standard drinks Types: 21 Cans of beer per week Comment: TALL BOY ARE DOUBLE BEERS 42 per week Drug use: Yes Types: Marijuana Comment: daily Social Determinants of Health Transportation Needs: No Transportation Needs Lack of Transportation (Medical): No Lack of Transportation (Non-Medical): No Intimate Partner Violence: Not At Risk Fear of Current or Ex-Partner: No Emotionally Abused: No Physically Abused: No Sexually Abused: No Housing Stability: Unknown Unable to Pay for Housing in the Last Year: No Unstable Housing in the Last Year: No SCREENINGS PHYSICAL EXAM ED Triage Vitals [01/09/23 1134] Temp Heart Rate Resp BP 36.7 C (98 F) 88 16 127/74 SpO2 Temp Source Heart Rate Source Patient Position 100 % Oral -- Sitting BP Location FiO2 (%) Right arm -- General appearance: Well-appearing, no acute distress. Psych: Awake alert and oriented 3. Pleasant and cooperative. Skin: Warm and dry. Neck: Supple. Cardiovascular: Regular rate and rhythm Abdomen: Soft, nontender, and nondistended, no rebound, rigidity, or guarding, positive bowel sounds 4 quadrants. Incisions have Steri-Strips over top of them with no drainage. The one that is just above the umbilicus the dressing is saturated with a serous drainage no sanguinous drainage no odor no erythema no localized tenderness DIAGNOSTIC RESULTS Interpretation per the Radiologist below, if available at the time of this note: No orders to display ED BEDSIDE ULTRASOUND: Performed by ED Physician - none LABS: Labs Reviewed - No data to display All other labs were within normal range or not returned as of this dictation. EMERGENCY DEPARTMENT COURSE and DIFFERENTIAL DIAGNOSIS/MDM: Vitals: Vitals: 01/09/23 1134 BP: 127/74 BP Location: Right arm Patient Position: Sitting Pulse: 88 Resp: 16 Temp: 36.7 C (98 F) TempSrc: Oral SpO2: 100% Weight: 83.9 kg (185 lb) Height: 1.778 m (5' 10") The patient presented with a chief complaint of drainage from a surgical wound. The differential diagnosis associated with this patient's presentation includes abscess versus seroma. Do not initially feel that there is any emergent work-up as it appears that this is likely a seroma with no increase in pain or localized pain, no erythema or swelling, no skin changes, there is serous only drainage Diagnoses as of 01/09/23 1353 Ascites due to alcoholic cirrhosis (CMS/HCC) (HCC) Diagnostic tests considered but not performed: CT scan of the abdomen pelvis Discussions with other clinicians: Sample Steamer Dr. Fang directed that this is likely due to the patient's known liver cirrhosis and ascites ED Medications managed: Medications oxyCODONE-acetaminophen (Percocet) 5-325 MG per tablet 1 tablet (1 tablet Oral Given 01/09/23 1328) Prescription drugs considered: Medications oxyCODONE-acetaminophen (Percocet) 5-325 MG per tablet 1 tablet (1 tablet Oral Given 01/09/23 1328) Directed the patient to take increased amounts of Lasix over the weekend contact his primary care doctor and Dr. Fang on Thursday. CRITICAL CARE TIME CONSULTS: None PROCEDURES: Unless otherwise noted below, none Procedures FINAL IMPRESSION 1. Ascites due to alcoholic cirrhosis (CMS/HCC) (HCC) DISPOSITION Discharge 01/09/2023 01:52:34 PM PATIENT REFERRED TO: Jani Quezada [address] [facility] [address] [facility] [address] Schedule an appointment as soon as possible for a visit [facility] [address] [facility] [address] As needed DISCHARGE MEDICATIONS: New Prescriptions No medications on file (Comment: Please note this report has been produced using speech recognition software and may contain errors related to that system including errors in grammar, punctuation, and spelling, as well as words and phrases that may be inappropriate. If there are any questions or concerns please feel free to contact the dictating provider for clarification.) JÚNIOR LO MD (electronically signed) Emergency Medicine Provider Júnior Lo MD 01/09/23 7707 Pt to ER with complaint of leaking fluid from surgical site. Pt had laparoscopic gallbladder removal 4 days ago. (01/05/23). States has been ding well after surgery but noticed his abd swelling and leaking fluid from umbilical site. States he has been putting a small gauze and a bandaid over site, but has leaked through 3 times today onto his shirt. States he called surgeon's office and they "would get back to them", but never called back. Denies increased pain. States he is in pain management for back pain- states his pain is always and 8/10. Pt ambulatory on arrival with steady gait. Alert and oriented x 3. Skin warm and dry. Respirations even and unlabored. Incision site without redness or edema. + clear fluid oozing out, bandaid dressing and pt shirt wet. documented in this encounter [facility] 01-09-2023 Hospital Discharge instructions Júnior Lo MD - 01/09/2023 1:53 PM EDT Take 40 mg a day of the Lasix Thursday Contact your doctor and Dr. Fang on Thursday to inform them of how you are doing. The following attachments cannot be sent through Care Everywhere.Cirrhosis (Portuguese)documented in this encounter [facility] 01-09-2023 Emergency department Note Waiting for call back from Dr. Fang. Pt and aware Emilee Gonzalez RN 01/09/23 1351 [facility] 01-09-2023 Emergency department Triage note Pt to ER with complaint of leaking fluid from surgical site. Pt had laparoscopic gallbladder removal 4 days ago. (01/05/23). States has been ding well after surgery but noticed his abd swelling and leaking fluid from umbilical site. States he has been putting a small gauze and a bandaid over site, but has leaked through 3 times today onto his shirt. States he called surgeon's office and they "would get back to them", but never called back. Denies increased pain. States he is in pain management for back pain- states his pain is always and 8/10. Pt ambulatory on arrival with steady gait. Alert and oriented x 3. Skin warm and dry. Respirations even and unlabored. Incision site without redness or edema. + clear fluid oozing out, bandaid dressing and pt shirt wet. [facility] 01-09-2023 Physician Emergency department Note EMERGENCY DEPARTMENT ENCOUNTER Pt Name: Woody Ni Birthdate 1960 Date of evaluation: 01/09/2023 ED Provider: JÚNIOR LO MD CHIEF COMPLAINT Chief Complaint Patient presents with Post-op Problem Leaking fluid from incision site HISTORY OF PRESENT ILLNESS (Location/Symptom, Timing/Onset, Context/Setting, Quality, Duration, Modifying Factors, Severity) Note limiting factors. I wore appropriate PPE for the entirety of this encounter. HPI Woody Ni is a 62 y.o. male who presents to the emergency department with chief complaint of leaking from an abdominal incision from a laparoscopic cholecystectomy. No increase in pain. States that it is a clear liquid without any odor. Denies any fevers. No nausea no vomiting Nursing Notes were reviewed. Limitations to history: None Outside historians: None REVIEW OF SYSTEMS Review of Systems Pertinent positives and negatives as per HPI. PAST MEDICAL HISTORY Past Medical History: Diagnosis Date Acid reflux Anxiety Back pain Cirrhosis (CMS/HCC) (HCC) Dehydration 12/22/22-12/26/22 admitted to [facility] Diabetes mellitus (HCC) Gout Hepatitis C Hypertension 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 Nausea and vomiting 12/22/22-12/26/22 admitted at [facility] Sleep apnea noncompliant with device SURGICAL HISTORY Past Surgical History: Procedure Laterality Date BACK SURGERY x 2 LAMINECTOMY LAP,CHOLECYSTECTOMY (HISTORICAL) N/A 01/05/2023 WISDOM TOOTH EXTRACTION CURRENT MEDICATIONS Previous Medications ACETAMINOPHEN (TYLENOL) 325 MG TABLET every 4 hours as needed. ACETAMINOPHEN (TYLENOL) 325 MG TABLET every 4 hours. ALBUTEROL (2.5 MG/3ML) 0.083% NEBULIZER SOLUTION Inhale 2.5 mg. PRN ALBUTEROL (PROAIR HFA) 108 (90 BASE) MCG/ACT INHALER every 4 hours. ALBUTEROL 108 (90 BASE) MCG/ACT INHALER INHALE TWO PUFFS BY MOUTH FOUR TIMES DAILY ALENDRONATE (FOSAMAX) 70 MG TABLET Take 70 mg by mouth once a week. AMLODIPINE (NORVASC) 2.5 MG TABLET Take 2.5 mg by mouth in the morning. AMLODIPINE (NORVASC) 2.5 MG TABLET Take 1 tablet by mouth daily. BIOFLAVONOID PRODUCTS (ALANA-C) TABLET Every 24 hours. CLOTRIMAZOLE-BETAMETHASONE (LOTRISONE) CREAM PRN COLCHICINE 0.6 MG TABLET every 8 hours. CYANOCOBALAMIN (VITAMIN B-12 IJ) Inject as directed every 30 (thirty) days. CYANOCOBALAMIN (VITAMIN B-12) 1000 MCG/ML INJECTION 1 mL intramuscularly once a month DICYCLOMINE (BENTYL) 20 MG TABLET Take 1 tablet (20 mg) by mouth in the morning and 1 tablet (20 mg) at noon and 1 tablet (20 mg) in the evening. Take before meals. DICYCLOMINE (BENTYL) 20 MG TABLET Take by mouth. FLUTICASONE (FLONASE) 50 MCG/ACT NASAL SPRAY Administer 1 spray into affected nostril(s). FLUTICASONE (FLONASE) 50 MCG/ACT NASAL SPRAY Every 24 hours. FOLIC ACID (FOLVITE) 1 MG TABLET TAKE 1 TABLET BY MOUTH DAILY FUROSEMIDE (LASIX) 20 MG TABLET Take 20 mg by mouth daily. IPRATROPIUM (ATROVENT) 0.02 % NEBULIZER SOLUTION PRN IPRATROPIUM-ALBUTEROL (DUO-NEB) 0.5-2.5 MG/3 ML NEBULIZER SOLUTION every 6 hours. KETOCONAZOLE (NIZORAL) 2 % SHAMPOO EVERY THREE DAYS LEVOTHYROXINE (SYNTHROID, LEVOXYL) 50 MCG TABLET TAKE 1 TABLET BY MOUTH DAILY LEVOTHYROXINE (SYNTHROID, LEVOXYL) 75 MCG TABLET Every 24 hours. LIDOCAINE (XYLOCAINE) 2 % SOLUTION LIDOCAINE (XYLOCAINE) 5 % OINTMENT every 8 hours. PRN LOPERAMIDE (IMODIUM A-D) 2 MG TABLET every 6 hours. PRN LORATADINE (CLARITIN) 10 MG TABLET Every 24 hours. PRN LORATADINE (CLARITIN) 10 MG TABLET Every 24 hours. METFORMIN (GLUCOPHAGE) 500 MG TABLET Take 1,000 mg by mouth daily (with breakfast). NIACIN 100 MG TABLET Every 24 hours. NITROGLYCERIN (NITROSTAT) 0.4 MG SL TABLET 1 tab(s) sublingually every 5 minutes x 3 doses prn OLMESARTAN (BENICAR) 40 MG TABLET Take 40 mg by mouth daily. OLMESARTAN (BENICAR) 40 MG TABLET Every 24 hours. ONDANSETRON (ZOFRAN) 4 MG TABLET Take 1 tablet (4 mg) by mouth every 8 hours as needed for vomiting or nausea for up to 7 days. ONDANSETRON (ZOFRAN) 4 MG TABLET Every 24 hours. ONDANSETRON ODT (ZOFRAN-ODT) [address] 4-8 mg under the tongue. PRN OXYCODONE (ROXICODONE) 10 MG IMMEDIATE RELEASE TABLET Take 10 mg by mouth in the morning and 10 mg at noon and 10 mg in the evening and 10 mg before bedtime. OXYCODONE-ACETAMINOPHEN (PERCOCET) 10-325 MG TABLET Take 1 tablet by mouth every 4 hours as needed for severe pain (7-10) for up to 7 days. PANTOPRAZOLE (PROTONIX) 40 MG EC TABLET Take 40 mg by mouth daily. POTASSIUM CHLORIDE CR (KLOR-CON) 10 MEQ ER TABLET Take 10 mEq by mouth daily. POTASSIUM CHLORIDE ER (MICRO-K) 10 MEQ ER CAPSULE Take 10 mEq by mouth in the morning. PRAVASTATIN (PRAVACHOL) 40 MG TABLET Take 40 mg by mouth in the morning. PREDNISONE (DELTASONE) 20 MG TABLET TAMSULOSIN (FLOMAX) 0.4 MG 24 HR CAPSULE Take 0.4 mg by mouth daily. THIAMINE (VITAMIN B-1) 100 MG TABLET Every 24 hours. ALLERGIES Allopurinol, Codeine, and Penicillin g FAMILY HISTORY Family History Problem Relation Name Age of Onset Depression Mother Depression Maternal Grandmother SOCIAL HISTORY Social History Socioeconomic History Marital status: Tobacco Use Smoking status: Former Types: Cigars Quit date: 1982 Years since quittin.2 Smokeless tobacco: Former Vaping Use Vaping Use: Every day Substances: CBD, canabis Devices: Disposable Substance and Sexual Activity Alcohol use: Yes Alcohol/week: 21.0 standard drinks Types: 21 Cans of beer per week Comment: TALL BOY ARE DOUBLE BEERS 42 per week Drug use: Yes Types: Marijuana Comment: daily Social Determinants of Health Transportation Needs: No Transportation Needs Lack of Transportation (Medical): No Lack of Transportation (Non-Medical): No Intimate Partner Violence: Not At Risk Fear of Current or Ex-Partner: No Emotionally Abused: No Physically Abused: No Sexually Abused: No Housing Stability: Unknown Unable to Pay for Housing in the Last Year: No Unstable Housing in the Last Year: No SCREENINGS PHYSICAL EXAM ED Triage Vitals [01/09/23 1134] Temp Heart Rate Resp BP 36.7 C (98 F) 88 16 127/74 SpO2 Temp Source Heart Rate Source Patient Position 100 % Oral -- Sitting BP Location FiO2 (%) Right arm -- General appearance: Well-appearing, no acute distress. Psych: Awake alert and oriented 3. Pleasant and cooperative. Skin: Warm and dry. Neck: Supple. Cardiovascular: Regular rate and rhythm Abdomen: Soft, nontender, and nondistended, no rebound, rigidity, or guarding, positive bowel sounds 4 quadrants. Incisions have Steri-Strips over top of them with no drainage. The one that is just above the umbilicus the dressing is saturated with a serous drainage no sanguinous drainage no odor no erythema no localized tenderness DIAGNOSTIC RESULTS Interpretation per the Radiologist below, if available at the time of this note: No orders to display ED BEDSIDE ULTRASOUND: Performed by ED Physician - none LABS: Labs Reviewed - No data to display All other labs were within normal range or not returned as of this dictation. EMERGENCY DEPARTMENT COURSE and DIFFERENTIAL DIAGNOSIS/MDM: Vitals: Vitals: 01/09/23 1134 BP: 127/74 BP Location: Right arm Patient Position: Sitting Pulse: 88 Resp: 16 Temp: 36.7 C (98 F) TempSrc: Oral SpO2: 100% Weight: 83.9 kg (185 lb) Height: 1.778 m (5' 10") The patient presented with a chief complaint of drainage from a surgical wound. The differential diagnosis associated with this patient's presentation includes abscess versus seroma. Do not initially feel that there is any emergent work-up as it appears that this is likely a seroma with no increase in pain or localized pain, no erythema or swelling, no skin changes, there is serous only drainage Diagnoses as of 01/09/23 1353 Ascites due to alcoholic cirrhosis (CMS/HCC) (HCC) Diagnostic tests considered but not performed: CT scan of the abdomen pelvis Discussions with other clinicians: Sample Steamer Dr. Fang directed that this is likely due to the patient's known liver cirrhosis and ascites ED Medications managed: Medications oxyCODONE-acetaminophen (Percocet) 5-325 MG per tablet 1 tablet (1 tablet Oral Given 01/09/23 1328) Prescription drugs considered: Medications oxyCODONE-acetaminophen (Percocet) 5-325 MG per tablet 1 tablet (1 tablet Oral Given 01/09/23 1328) Directed the patient to take increased amounts of Lasix over the weekend contact his primary care doctor and Dr. Fang on Thursday. CRITICAL CARE TIME CONSULTS: None PROCEDURES: Unless otherwise noted below, none Procedures FINAL IMPRESSION 1. Ascites due to alcoholic cirrhosis (CMS/HCC) (HCC) DISPOSITION Discharge 01/09/2023 01:52:34 PM PATIENT REFERRED TO: Jani Alvarezrocael [address] [facility] [address] [facility] [id number] Schedule an appointment as soon as possible for a visit [facility] [address] [facility] [address] As needed DISCHARGE MEDICATIONS: New Prescriptions No medications on file (Comment: Please note this report has been produced using speech recognition software and may contain errors related to that system including errors in grammar, punctuation, and spelling, as well as words and phrases that may be inappropriate. If there are any questions or concerns please feel free to contact the dictating provider for clarification.) JÚNIOR LO MD (electronically signed) Emergency Medicine Provider Júnior Lo MD 01/09/23 9958 [employer] Work Phone: 01-05-2023 Note Formatting of this n ote might be different from the original. Images from the original note were not included. [facility] - Surgery [facility] Physicians Surgery Patient Name: Woody Ni OPERATIVE NOTE DATE OF PROCEDURE: 01/05/2023 SURGEON: Ruperto Fang MD PAYROLL AND BENEFITS ANALYST: Genna Castro DO PREOPERATIVE DIAGNOSIS: Gallbladder sludge RUQ pain POSTOPERATIVE DIAGNOSIS: Same, plus acute on chronic cholecystitis Nodular liver consistent with alcoholic cirrhosis with ascites OPERATION: Laparoscopic cholecystectomy Laparoscopic liver biopsy ANESTHESIA: General anesthesia ESTIMATED BLOOD LOSS: Minimal COMPLICATIONS: None SPECIMENS: Gallbladder, liver wedge biopsy PREOPERATIVE MEDICATIONS: ancef HISTORY: The patient is a 62 y.o. year old male with history of above preop diagnosis. I explained the risk, benefits, expected outcome, and alternatives to the procedure. Patient understands and is in agreement to proceed with operation. PROCEDURE: The patient was brought to the operating room and placed in supine position. After initiation of general anesthesia by the Anesthesia Department, the abdomen was prepped and draped normal sterile fashion. A Veress needle was placed in the left upper quadrant and insufflated without difficulty. We placed four 5 mm trocars, one in the left upper quadrant, 2 in the right upper quadrant, and 1 in the infraumbilical position. Upon entering the abdomen, the gallbladder was identified, grasped, and retracted cephalad. There was gallbladder wall thickening and pericholecystic fluid noted with acute on chronic cholecystitis. He also was noted to have a nodular liver consistent with cirrhosis. In addition there was nonpurulent ascites noted. The peritoneum overlying the junction of the cystic duct was stripped free. Hook electrocautery was used to detach the lateral peritoneal attachments, the left and right side of the gallbladder up towards the fundus. We isolated the cystic duct and cystic artery and dissected the posterior aspect of the gallbladder from the gallbladder fossa. There were only 2 structures noted, the cystic duct and the cystic artery. We placed 3 clips on the stay side of the cystic duct and 1 clip on the gallbladder side and the cystic duct was divided. We placed 2 clips on the stay side of the cystic artery, 1 clip on the gallbladder side and the cystic artery was divided. Hook electrocautery was used to remove the gallbladder from the gallbladder fossa. Prior to amputating the gallbladder, we again re-evaluated our clip structures, there was no evidence of bleeding or bilious extravasation. The gallbladder was amputated and removed using a wound protection device. The right upper quadrant was copiously irrigated and the effluent aspirated. Because of the new liver changes noted with nodular and dense cirrhotic appearing liver consistent with alcoholic cirrhosis with ascites, liver biopsy was performed. Multiple bites of the right lobe of the liver were obtained using a laparoscopic liver wedge biopsy forcep. Multiple bites were obtained including capsule and tissue of the liver. This was sent to pathology for pathologic interpretation. Bovie electrocautery was used to provide appropriate hemostasis of the liver biopsy site. Multiple sutures of 0 Vicryl was used to close the fascial defect at the gallbladder extraction site. The skin was closed using 4-0 Monocryl. He tolerated the procedure well, was extubated, and sent to the recovery room in stable condition. [facility] 01-05-2023 Note Formatting of this n ote might be different from the original. Images from the original note were not included. [facility] - Surgery [facility] Physicians Surgery Patient Name: Woody Ni OPERATIVE NOTE DATE OF PROCEDURE: 01/05/2023 SURGEON: Ruperto Fang MD PAYROLL AND BENEFITS ANALYST: Genna Castro DO PREOPERATIVE DIAGNOSIS: Gallbladder sludge RUQ pain POSTOPERATIVE DIAGNOSIS: Same, plus acute on chronic cholecystitis Nodular liver consistent with alcoholic cirrhosis with ascites OPERATION: Laparoscopic cholecystectomy Laparoscopic liver biopsy ANESTHESIA: General anesthesia ESTIMATED BLOOD LOSS: Minimal COMPLICATIONS: None SPECIMENS: Gallbladder, liver wedge biopsy PREOPERATIVE MEDICATIONS: ancef HISTORY: The patient is a 62 y.o. year old male with history of above preop diagnosis. I explained the risk, benefits, expected outcome, and alternatives to the procedure. Patient understands and is in agreement to proceed with operation. PROCEDURE: The patient was brought to the operating room and placed in supine position. After initiation of general anesthesia by the Anesthesia Department, the abdomen was prepped and draped normal sterile fashion. A Veress needle was placed in the left upper quadrant and insufflated without difficulty. We placed four 5 mm trocars, one in the left upper quadrant, 2 in the right upper quadrant, and 1 in the infraumbilical position. Upon entering the abdomen, the gallbladder was identified, grasped, and retracted cephalad. There was gallbladder wall thickening and pericholecystic fluid noted with acute on chronic cholecystitis. He also was noted to have a nodular liver consistent with cirrhosis. In addition there was nonpurulent ascites noted. The peritoneum overlying the junction of the cystic duct was stripped free. Hook electrocautery was used to detach the lateral peritoneal attachments, the left and right side of the gallbladder up towards the fundus. We isolated the cystic duct and cystic artery and dissected the posterior aspect of the gallbladder from the gallbladder fossa. There were only 2 structures noted, the cystic duct and the cystic artery. We placed 3 clips on the stay side of the cystic duct and 1 clip on the gallbladder side and the cystic duct was divided. We placed 2 clips on the stay side of the cystic artery, 1 clip on the gallbladder side and the cystic artery was divided. Hook electrocautery was used to remove the gallbladder from the gallbladder fossa. Prior to amputating the gallbladder, we again re-evaluated our clip structures, there was no evidence of bleeding or bilious extravasation. The gallbladder was amputated and removed using a wound protection device. The right upper quadrant was copiously irrigated and the effluent aspirated. Because of the new liver changes noted with nodular and dense cirrhotic appearing liver consistent with alcoholic cirrhosis with ascites, liver biopsy was performed. Multiple bites of the right lobe of the liver were obtained using a laparoscopic liver wedge biopsy forcep. Multiple bites were obtained including capsule and tissue of the liver. This was sent to pathology for pathologic interpretation. Bovie electrocautery was used to provide appropriate hemostasis of the liver biopsy site. Multiple sutures of 0 Vicryl was used to close the fascial defect at the gallbladder extraction site. The skin was closed using 4-0 Monocryl. He tolerated the procedure well, was extubated, and sent to the recovery room in stable condition. [facility] 01-05-2023 Miscellaneous Notes Images from the original note were not included. [facility] - Surgery [facility] Physicians Surgery Patient Name: Woody Ni OPERATIVE NOTE DATE OF PROCEDURE: 01/05/2023 SURGEON: Ruperto Fang MD PAYROLL AND BENEFITS ANALYST: Genna Castro DO PREOPERATIVE DIAGNOSIS: Gallbladder sludge RUQ pain POSTOPERATIVE DIAGNOSIS: Same, plus acute on chronic cholecystitis Nodular liver consistent with alcoholic cirrhosis with ascites OPERATION: Laparoscopic cholecystectomy Laparoscopic liver biopsy ANESTHESIA: General anesthesia ESTIMATED BLOOD LOSS: Minimal COMPLICATIONS: None SPECIMENS: Gallbladder, liver wedge biopsy PREOPERATIVE MEDICATIONS: ancef HISTORY: The patient is a 62 y.o. year old male with history of above preop diagnosis. I explained the risk, benefits, expected outcome, and alternatives to the procedure. Patient understands and is in agreement to proceed with operation. PROCEDURE: The patient was brought to the operating room and placed in supine position. After initiation of general anesthesia by the Anesthesia Department, the abdomen was prepped and draped normal sterile fashion. A Veress needle was placed in the left upper quadrant and insufflated without difficulty. We placed four 5 mm trocars, one in the left upper quadrant, 2 in the right upper quadrant, and 1 in the infraumbilical position. Upon entering the abdomen, the gallbladder was identified, grasped, and retracted cephalad. There was gallbladder wall thickening and pericholecystic fluid noted with acute on chronic cholecystitis. He also was noted to have a nodular liver consistent with cirrhosis. In addition there was nonpurulent ascites noted. The peritoneum overlying the junction of the cystic duct was stripped free. Hook electrocautery was used to detach the lateral peritoneal attachments, the left and right side of the gallbladder up towards the fundus. We isolated the cystic duct and cystic artery and dissected the posterior aspect of the gallbladder from the gallbladder fossa. There were only 2 structures noted, the cystic duct and the cystic artery. We placed 3 clips on the stay side of the cystic duct and 1 clip on the gallbladder side and the cystic duct was divided. We placed 2 clips on the stay side of the cystic artery, 1 clip on the gallbladder side and the cystic artery was divided. Hook electrocautery was used to remove the gallbladder from the gallbladder fossa. Prior to amputating the gallbladder, we again re-evaluated our clip structures, there was no evidence of bleeding or bilious extravasation. The gallbladder was amputated and removed using a wound protection device. The right upper quadrant was copiously irrigated and the effluent aspirated. Because of the new liver changes noted with nodular and dense cirrhotic appearing liver consistent with alcoholic cirrhosis with ascites, liver biopsy was performed. Multiple bites of the right lobe of the liver were obtained using a laparoscopic liver wedge biopsy forcep. Multiple bites were obtained including capsule and tissue of the liver. This was sent to pathology for pathologic interpretation. Bovie electrocautery was used to provide appropriate hemostasis of the liver biopsy site. Multiple sutures of 0 Vicryl was used to close the fascial defect at the gallbladder extraction site. The skin was closed using 4-0 Monocryl. He tolerated the procedure well, was extubated, and sent to the recovery room in stable condition. documented in this encounter [facility] 01-05-2023 Attending History and physical note Images from the original note were not included. [facility] - Surgery [facility] Physicians Surgery Patient Name: Woody Ni Date: 01/05/23 Update History & Physical The patient's History and Physical was reviewed with the patient and there were no significant changes. I examined the patient and there were no significant changes from the previous History and Physical. I verify that the patient's condition and planned treatment has not changed. I also confirm the necessity for the procedure still present. Plan: The risk, benefits, expected outcome, and alternative to the recommended procedure have been discussed with the patient. Patient understands and wants to proceed with the procedure. Gallbladder sludge Plan lap willow Source Note - Erika Lazar APRN - ANIMAL CONTROL SPECIALIST - 12/29/2022 11:30 AM EDT Images from the original note were not included. Comprehensive PreSurgical History and Physical ? Name: Woody Ni : 1960 (Age-62 y.o.) Date of Service: Pt seen/examined on 12/29/2022 Procedure Information Date/Time: 01/05/23929 Procedure: LAPAROSCOPIC CHOLECYSTECTOMY, POSSIBLE OPEN (Abdomen) - 90 minutes total Location: [address] Operating Room Surgeons: Ruperto Fang MD Chief Complaint: Other specified disease of gallbladder History Of Present Illness: 62 y.o. male who we are asked to see/evaluate by Dr. Fang for pre-operative evaluation prior to above procedure . ? Denies history of OH, CAD, CHF, TIA, CVA Past Medical History: Past Medical History: No date: Acid reflux No date: Anxiety No date: Back pain No date: Cirrhosis (CMS/HCC) (HCC) No date: Dehydration Comment: 12/22/22-12/26/22 admitted to [facility] No date: Diabetes mellitus (HCC) No date: Gout No date: Hepatitis C No date: Hypertension No date: 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 No date: Nausea and vomiting Comment: 12/22/22-12/26/22 admitted at [facility] Past Surgical History: Past Surgical History: No date: BACK SURGERY Comment: x 2 No date: LAMINECTOMY No date: WISDOM TOOTH EXTRACTION Medications Prior to Admission: Prior to Admission medications Medication Sig Start Date End Date Taking? Authorizing Provider acetaminophen (Tylenol) 325 MG tablet every 4 hours. Historical Provider, albuterol (2.5 MG/3ML) 0.083% nebulizer solution Inhale 2.5 mg. Historical Provider, albuterol 108 (90 Base) MCG/ACT inhaler INHALE TWO PUFFS BY MOUTH FOUR TIMES DAILY 11/09/19 Historical Provider, alendronate (Fosamax) 70 MG tablet Take 70 mg by mouth once a week. 05/19/17 Historical Provider, amLODIPine (Norvasc) 2.5 MG tablet Take 2.5 mg by mouth in the morning. 05/27/17 Historical Provider, Bioflavonoid Products (Alana-C) tablet Every 24 hours. Historical Provider, clotrimazole-betamethasone (Lotrisone) cream 03/31/17 Historical Provider, Cyanocobalamin (Vitamin B-12) 5000 MCG tablet dispersible every 12 hours. Historical Provider, dicyclomine (Bentyl) 20 MG tablet Take 1 tablet (20 mg) by mouth in the morning and 1 tablet (20 mg) at noon and 1 tablet (20 mg) in the evening. Take before meals. 11/07/22 11/07/23 Beryl Holder PA-C fluticasone (Flonase) 50 MCG/ACT nasal spray Administer 1 spray into affected nostril(s). 04/27/17 Historical Provider, folic acid (Folvite) 1 MG tablet TAKE 1 TABLET BY MOUTH DAILY 06/06/22 06/06/23 Nicolas Qiu furosemide (Lasix) 20 MG tablet Take 20 mg by mouth. 05/18/17 Historical Provider, ipratropium (Atrovent) 0.02 % nebulizer solution 05/04/17 Historical Provider, ketoconazole (NIZOral) 2 % shampoo 11/18/19 Historical Provider, levothyroxine (Synthroid, Levoxyl) 50 MCG tablet TAKE 1 TABLET BY MOUTH DAILY 06/06/22 06/06/23 Nicolas Qiu lidocaine (Xylocaine) 2 % solution 11/18/19 Historical Provider, lidocaine (Xylocaine) 5 % ointment every 8 hours. Historical Provider, loperamide (Imodium A-D) 2 MG tablet every 6 hours. Historical Provider, loratadine (Claritin) 10 MG tablet Every 24 hours. Historical Provider, metFORMIN (Glucophage) 500 MG tablet Take 1,000 mg by mouth daily (with breakfast). 05/21/17 Historical ProviderMD niacin 100 MG tablet Every 24 hours. Historical Provider, olmesartan (BENIcar) 40 MG tablet Take 40 mg by mouth daily. 10/14/22 Historical Provider, ondansetron ODT (Zofran-ODT) [address] 4-8 mg under the tongue. 05/15/22 Historical ProviderMD oxyCODONE (Roxicodone) 10 MG immediate release tablet Take 10 mg by mouth in the morning and 10 mg at noon and 10 mg in the evening and 10 mg before bedtime. 05/29/17 Historical ProviderMD pantoprazole (ProtoNix) 40 MG EC tablet Take 40 mg by mouth daily. Historical ProviderMD potassium chloride ER (Micro-K) 10 MEQ ER capsule Take 10 mEq by mouth in the morning. 03/30/17 Historical ProviderMD pravastatin (Pravachol) 40 MG tablet Take 40 mg by mouth in the morning. 04/30/17 Historical ProviderMD tamsulosin (Flomax) 0.4 MG 24 hr capsule Take 0.4 mg by mouth daily. 01/27/22 Historical ProviderMD colchicine 0.6 MG tablet Take 0.6 mg by mouth in the morning and 0.6 mg at noon and 0.6 mg in the evening. 05/16/17 12/25/22 Historical ProviderMD levothyroxine (Synthroid, Levoxyl) 75 MCG tablet Every 24 hours. 12/25/22 Historical ProviderMD predniSONE (Deltasone) 20 MG tablet TAKE ONE TABLET BY MOUTH TWICE DAILY FOR 5 DAYS 10/27/22 12/25/22 Historical ProviderMD CHRONIC NARCOTIC USE: Yes- Oxycodone 10mg IR Allergies: Allopurinol and Penicillin g Can the patient take acetaminophen: Yes Social History: TOBACCO: reports that he quit smoking about 40 years ago. His smoking use included cigars. He has quit using smokeless tobacco. ETOH: reports current alcohol use of about 21.0 standard drinks per week. Social History Substance and Sexual Activity Drug Use Yes Types: Marijuana Comment: daily Family History: Family History Problem Relation Name Age of Onset Depression Mother Depression Maternal Grandmother REVIEW OF SYSTEMS: Review of Systems Constitutional: Negative for chills and fever. HENT: Negative for congestion and trouble swallowing. Respiratory: Negative for cough and shortness of breath. Cardiovascular: Negative for chest pain and leg swelling. Gastrointestinal: Negative for abdominal pain, nausea and vomiting. Skin: Negative for rash. Neurological: Negative for weakness and headaches. Physical Exam: Physical Exam Constitutional: Appearance: Normal appearance. HENT: Head: Normocephalic and atraumatic. Mouth/Throat: Mouth: Mucous membranes are moist. Pharynx: Oropharynx is clear. Eyes: Pupils: Pupils are equal, round, and reactive to light. Cardiovascular: Rate and Rhythm: Normal rate. Pulmonary: Effort: Pulmonary effort is normal. Breath sounds: Normal breath sounds. Musculoskeletal: General: Normal range of motion. Cervical back: Normal range of motion. Skin: General: Skin is warm and dry. Capillary Refill: Capillary refill takes less than 2 seconds. Neurological: General: No focal deficit present. Mental Status: He is alert and oriented to person, place, and time. Psychiatric: Mood and Affect: Mood normal. Behavior: Behavior normal. Vitals: Vitals Value Taken Time BP 157/90 12/29/22 1151 Temp 36.3 C (97.3 F) 12/29/22 1151 Pulse 89 12/29/22 1151 Resp 16 12/29/22 1151 SpO2 98 % 12/29/22 1151 Labs: repeated in PAT d/t abnormal results below Lab Results Component Value Date WBC 2.5 (L) 12/24/2022 HGB 11.7 (L) 12/24/2022 HCT 34.9 (L) 12/24/2022 MCV 99.2 (H) 12/24/2022 PLT 70 (L) 12/24/2022 Lab Results Component Value Date NA 131 (L) 12/25/2022 K 4.0 12/25/2022 CL 102 12/25/2022 CO2 23 12/25/2022 BUN 13 12/25/2022 CREATININE 1.36 (H) 12/25/2022 GLUCOSE 110 (H) 12/25/2022 CALCIUM 8.7 12/25/2022 PROT 6.4 12/24/2022 ALKPHOS 52 12/24/2022 AST 141 (H) 12/24/2022 ALT 169 (H) 12/24/2022 EGFR 58.8 (L) 12/25/2022 Nico's Simple Cardiac Risk Index: NICO'S SIMPLE CARDIAC RISK SCORE: 0 Interpretation: 0 Points Class I 0.5% 1 Point Class II 1.3% 2 Points Class III 3.6% 3+ Points Class IV 9.1% METS >4 METS (Able to climb a flight of stairs with no chest pain or shortness of breath): Yes PAT Pain Score: Pain Score: 9 Postop Pain Management Plan (Pain consult ordered?): Chronic pain diagnosis - Pain consult recommended, will defer consult to surgical team. ? EKG: completed 08/28/22- SR wit RBBB and LAFB- compared to EKG 05/2022 and no changes I have reviewed the EKG if indicated and there is no concern for ischemic changes or significant heart block. ECHO and EF:None on file No components found for: LVEF, LVEFMODE ASSESSMENT/PLAN: Patient is considered low/intermediate risk for this low/intermediate risk procedure/surgery () with no reducible risk factors. Based on the above evaluation, the benefits of the planned procedure likely exceed the risks. The patient is medically optimized to proceed with the planned procedure without any further cardiopulmonary testing. 1) specified diseases of gallbladder - Managed per surgery 2) Asthma / SHAYLA/ smokes marijuana Albuterol Atrovent Does NOT use CPAP 3) T2DM Metformin A1c ordered in PAT 4) HTN/ Hyperlipidemia Pravastatin Bencar Norvasc Lasix 5) Osteoporosis Fosamax 6) ETOH abuse/ Hx Hepatitis C and alcoholic Cirrhosis Labs ordered per protocol Folvite Vitamin B-12 7) 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 Synthroid 50mcg 8) GERD Prilosec Protonix Bentyl 9) chronic pain Oxycodone 10mg IR Visit Type: Pre-Admission Testing Visit Labs Ordered: YES - PER PAT PROTOCOL Sleep Referral Ordered: NO - NEGATIVE SCREEN PER SLEEP REFERRAL PROTOCOL Electronically signed by: Erika Lazar APRN - KELLY Date: 12/29/2022 at 12:08 PM PAT Protocol referenced includes: 1. Anesthesia Lab Protocol Orders 2. Perioperative Cardiovascular Risk Assessment 3. Anesthesia Assessment 4. Pain Assessment and Acute Pain Service Consult (if appropriate) 5. Medical Clearance/Consult from Internal Medicine (IMS) 6. Shower/Wash Order (for designated surgeries) 7. SHAYLA Screen and Sleep Clinic Referral (if appropriate) [facility] 01-05-2023 History and physical note Images from the original note were not included. [facility] - Surgery [facility] Physicians Surgery Patient Name: Woody Ni Date: 01/05/23 Update History & Physical The patient's History and Physical was reviewed with the patient and there were no significant changes. I examined the patient and there were no significant changes from the previous History and Physical. I verify that the patient's condition and planned treatment has not changed. I also confirm the necessity for the procedure still present. Plan: The risk, benefits, expected outcome, and alternative to the recommended procedure have been discussed with the patient. Patient understands and wants to proceed with the procedure. Gallbladder sludge Plan lap willow Source Note - Erika Lazar APRN - ANIMAL CONTROL SPECIALIST - 12/29/2022 11:30 AM EDT Images from the original note were not included. Comprehensive PreSurgical History and Physical ? Name: Woody Ni : 1960 (Age-62 y.o.) Date of Service: Pt seen/examined on 12/29/2022 Procedure Information Date/Time: 01/05/23 0930 Procedure: LAPAROSCOPIC CHOLECYSTECTOMY, POSSIBLE OPEN (Abdomen) - 90 minutes total Location: [facility] OR [address] [place] [address] Operating Room Surgeons: Ruperto Fang MD Chief Complaint: Other specified disease of gallbladder History Of Present Illness: 62 y.o. male who we are asked to see/evaluate by Dr. Fang for pre-operative evaluation prior to above procedure . ? Denies history of [place], CAD, CHF, TIA, CVA Past Medical History: Past Medical History: No date: Acid reflux No date: Anxiety No date: Back pain No date: Cirrhosis (CMS/HCC) (HCC) No date: Dehydration Comment: 12/22/22-12/26/22 admitted to [facility] No date: Diabetes mellitus (HCC) No date: Gout No date: Hepatitis C No date: Hypertension No date: 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 No date: Nausea and vomiting Comment: 12/22/22-12/26/22 admitted at [facility] Past Surgical History: Past Surgical History: No date: BACK SURGERY Comment: x 2 No date: LAMINECTOMY No date: WISDOM TOOTH EXTRACTION Medications Prior to Admission: Prior to Admission medications Medication Sig Start Date End Date Taking? Authorizing Provider acetaminophen (Tylenol) 325 MG tablet every 4 hours. Historical Provider, albuterol (2.5 MG/3ML) 0.083% nebulizer solution Inhale 2.5 mg. Historical Provider, albuterol 108 (90 Base) MCG/ACT inhaler INHALE TWO PUFFS BY MOUTH FOUR TIMES DAILY 11/09/19 Historical Provider, alendronate (Fosamax) 70 MG tablet Take 70 mg by mouth once a week. 05/19/17 Historical Provider, amLODIPine (Norvasc) 2.5 MG tablet Take 2.5 mg by mouth in the morning. 05/27/17 Historical Provider, Bioflavonoid Products (Alana-C) tablet Every 24 hours. Historical Provider, clotrimazole-betamethasone (Lotrisone) cream 03/31/17 Historical Provider, Cyanocobalamin (Vitamin B-12) 5000 MCG tablet dispersible every 12 hours. Historical Provider, dicyclomine (Bentyl) 20 MG tablet Take 1 tablet (20 mg) by mouth in the morning and 1 tablet (20 mg) at noon and 1 tablet (20 mg) in the evening. Take before meals. 11/07/22 11/07/23 Beryl Holder PA-C fluticasone (Flonase) 50 MCG/ACT nasal spray Administer 1 spray into affected nostril(s). 04/27/17 Historical Provider, folic acid (Folvite) 1 MG tablet TAKE 1 TABLET BY MOUTH DAILY 06/06/22 06/06/23 Nicolas Qiu furosemide (Lasix) 20 MG tablet Take 20 mg by mouth. 05/18/17 Historical Provider, ipratropium (Atrovent) 0.02 % nebulizer solution 05/04/17 Historical Provider, ketoconazole (NIZOral) 2 % shampoo 11/18/19 Historical Provider, levothyroxine (Synthroid, Levoxyl) 50 MCG tablet TAKE 1 TABLET BY MOUTH DAILY 06/06/22 06/06/23 Nicolas Qiu lidocaine (Xylocaine) 2 % solution 11/18/19 Historical Provider, lidocaine (Xylocaine) 5 % ointment every 8 hours. Historical Provider, loperamide (Imodium A-D) 2 MG tablet every 6 hours. Historical Provider, loratadine (Claritin) 10 MG tablet Every 24 hours. Historical Provider, metFORMIN (Glucophage) 500 MG tablet Take 1,000 mg by mouth daily (with breakfast). 05/21/17 Historical Provider, niacin 100 MG tablet Every 24 hours. Historical Provider, olmesartan (BENIcar) 40 MG tablet Take 40 mg by mouth daily. 10/14/22 Historical Provider, ondansetron ODT (Zofran-ODT) [address] 4-8 mg under the tongue. 05/15/22 Historical Provider, oxyCODONE (Roxicodone) 10 MG immediate release tablet Take 10 mg by mouth in the morning and 10 mg at noon and 10 mg in the evening and 10 mg before bedtime. 05/29/17 Historical Provider, pantoprazole (ProtoNix) 40 MG EC tablet Take 40 mg by mouth daily. Historical Provider, potassium chloride ER (Micro-K) 10 MEQ ER capsule Take 10 mEq by mouth in the morning. 03/30/17 Historical Provider, pravastatin (Pravachol) 40 MG tablet Take 40 mg by mouth in the morning. 04/30/17 Historical ProviderMD tamsulosin (Flomax) 0.4 MG 24 hr capsule Take 0.4 mg by mouth daily. 01/27/22 Historical ProviderMD colchicine 0.6 MG tablet Take 0.6 mg by mouth in the morning and 0.6 mg at noon and 0.6 mg in the evening. 05/16/17 12/25/22 Historical ProviderMD levothyroxine (Synthroid, Levoxyl) 75 MCG tablet Every 24 hours. 12/25/22 Historical Provider, predniSONE (Deltasone) 20 MG tablet TAKE ONE TABLET BY MOUTH TWICE DAILY FOR 5 DAYS 10/27/22 12/25/22 Historical Provider, CHRONIC NARCOTIC USE: Yes- Oxycodone 10mg IR Allergies: Allopurinol and Penicillin g Can the patient take acetaminophen: Yes Social History: TOBACCO: reports that he quit smoking about 40 years ago. His smoking use included cigars. He has quit using smokeless tobacco. ETOH: reports current alcohol use of about 21.0 standard drinks per week. Social History Substance and Sexual Activity Drug Use Yes Types: Marijuana Comment: daily Family History: Family History Problem Relation Name Age of Onset Depression Mother Depression Maternal Grandmother REVIEW OF SYSTEMS: Review of Systems Constitutional: Negative for chills and fever. HENT: Negative for congestion and trouble swallowing. Respiratory: Negative for cough and shortness of breath. Cardiovascular: Negative for chest pain and leg swelling. Gastrointestinal: Negative for abdominal pain, nausea and vomiting. Skin: Negative for rash. Neurological: Negative for weakness and headaches. Physical Exam: Physical Exam Constitutional: Appearance: Normal appearance. HENT: Head: Normocephalic and atraumatic. Mouth/Throat: Mouth: Mucous membranes are moist. Pharynx: Oropharynx is clear. Eyes: Pupils: Pupils are equal, round, and reactive to light. Cardiovascular: Rate and Rhythm: Normal rate. Pulmonary: Effort: Pulmonary effort is normal. Breath sounds: Normal breath sounds. Musculoskeletal: General: Normal range of motion. Cervical back: Normal range of motion. Skin: General: Skin is warm and dry. Capillary Refill: Capillary refill takes less than 2 seconds. Neurological: General: No focal deficit present. Mental Status: He is alert and oriented to person, place, and time. Psychiatric: Mood and Affect: Mood normal. Behavior: Behavior normal. Vitals: Vitals Value Taken Time BP 157/90 12/29/22 1151 Temp 36.3 C (97.3 F) 12/29/22 1151 Pulse 89 12/29/22 1151 Resp 16 12/29/22 1151 SpO2 98 % 12/29/22 1151 Labs: repeated in PAT d/t abnormal results below Lab Results Component Value Date WBC 2.5 (L) 12/24/2022 HGB 11.7 (L) 12/24/2022 HCT 34.9 (L) 12/24/2022 MCV 99.2 (H) 12/24/2022 PLT 70 (L) 12/24/2022 Lab Results Component Value Date NA 131 (L) 12/25/2022 K 4.0 12/25/2022 CL 102 12/25/2022 CO2 23 12/25/2022 BUN 13 12/25/2022 CREATININE 1.36 (H) 12/25/2022 GLUCOSE 110 (H) 12/25/2022 CALCIUM 8.7 12/25/2022 PROT 6.4 12/24/2022 ALKPHOS 52 12/24/2022 AST 141 (H) 12/24/2022 ALT 169 (H) 12/24/2022 EGFR 58.8 (L) 12/25/2022 Nico's Simple Cardiac Risk Index: NICO'S SIMPLE CARDIAC RISK SCORE: 0 Interpretation: 0 Points Class I 0.5% 1 Point Class II 1.3% 2 Points Class III 3.6% 3+ Points Class IV 9.1% METS >4 METS (Able to climb a flight of stairs with no chest pain or shortness of breath): Yes PAT Pain Score: Pain Score: 9 Postop Pain Management Plan (Pain consult ordered?): Chronic pain diagnosis - Pain consult recommended, will defer consult to surgical team. ? EKG: completed 08/28/22- SR wit RBBB and LAFB- compared to EKG 05/2022 and no changes I have reviewed the EKG if indicated and there is no concern for ischemic changes or significant heart block. ECHO and EF:None on file No components found for: LVEF, LVEFMODE ASSESSMENT/PLAN: Patient is considered low/intermediate risk for this low/intermediate risk procedure/surgery () with no reducible risk factors. Based on the above evaluation, the benefits of the planned procedure likely exceed the risks. The patient is medically optimized to proceed with the planned procedure without any further cardiopulmonary testing. 1) specified diseases of gallbladder - Managed per surgery 2) Asthma / SHAYLA/ smokes marijuana Albuterol Atrovent Does NOT use CPAP 3) T2DM Metformin A1c ordered in PAT 4) HTN/ Hyperlipidemia Pravastatin Bencar Norvasc Lasix 5) Osteoporosis Fosamax 6) ETOH abuse/ Hx Hepatitis C and alcoholic Cirrhosis Labs ordered per protocol Folvite Vitamin B-12 7) 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 Synthroid 50mcg 8) GERD Prilosec Protonix Bentyl 9) chronic pain Oxycodone 10mg IR Visit Type: Pre-Admission Testing Visit Labs Ordered: YES - PER PAT PROTOCOL Sleep Referral Ordered: NO - NEGATIVE SCREEN PER SLEEP REFERRAL PROTOCOL Electronically signed by: LEAH Paris CNP Date: 12/29/2022 at 12:08 PM PAT Protocol referenced includes: 1. Anesthesia Lab Protocol Orders 2. Perioperative Cardiovascular Risk Assessment 3. Anesthesia Assessment 4. Pain Assessment and Acute Pain Service Consult (if appropriate) 5. Medical Clearance/Consult from Internal Medicine (IMS) 6. Shower/Wash Order (for designated surgeries) 7. SHAYLA Screen and Sleep Clinic Referral (if appropriate) documented in this encounter [facility] 01-05-2023 Hospital Discharge instructions Ruperto Fang MD - 01/05/2023 7:34 AM EDT Images from the original note were not included. [facility] - Surgery [facility] Physicians Surgery DISCHARGE INSTRUCTIONS FOR DR. FANG Thank you very much for allowing me to participate in your care, it is truly a privilege. Below please see discharge orders that will help you during your recovery. Please do not hesitate to call the office during the day at [phone] for any questions. After hours, the same number will allow you to reach the on-call surgeon. Please remove the Steri-Strips 5 days after surgery. Please remove the Steri-Strips as instructed 5 days after your date of surgery, remove them on 01/10/23. This includes any clear bandages and gauze placed in the navel, if applicable. If you have been provided with an abdominal binder, this is for your comfort. Please take this off in order to shower and use it as needed for your comfort. There is no designated time frame with which you should wear the binder. Again, it is only for your comfort and symptom relief. Please shower the day after surgery. Soap and water is adequate. Keep the incisions clean and dry. No lotions or ointments until you are seen in the office. Surgery can hurt! Please make every effort to take the pain medicine as instructed to help reduce your discomfort. I usually recommend that you take pain medicine when you wake up in the morning and before you go to sleep. Schedule the rest of the day in order to not interfere with medication dosages as prescribed. If you feel that the medicine is not working, please call the office. Should you have nausea after surgery (the most common complaint after surgery) you will be provided with a prescription for Zofran. Please utilize this should you have any postoperative nausea or vomiting. If you feel that the medicine is not working, please call the office. Please use Miralax (available over the counter) until you have a bowel movement. Constipation is routine after surgery and adding the Miralax will help prevent constipation. For any emergencies, please dial 911. Thank you again for allowing me to participate in your care, and get well soon! Best regards, Ruperto Fang M.D., F.A.C.S. documented in this encounter [facility] 12-30-2022 Telephone encounter Note Spoke with patient's pain management physician, Dr Horowitz, regarding postop pain control plan. Patient currently takes Oxycodone 10mg QID for chronic pain. Per Dr Horowitz recommendation, patient is to hold/stop taking the oxycodone and our office to write for Percocet 10/325 1 tablet q4-6hrs for how ever long we feel necessary. Once we no longer need to prescribe pain medication, patient to resume the Oxycodone 10mg as prescribed by pain management. [facility] 12-30-2022 Miscellaneous Notes Spoke with patient's pain management physician, Dr Horowitz, regarding postop pain control plan. Patient currently takes Oxycodone 10mg QID for chronic pain. Per Dr Horowitz recommendation, patient is to hold/stop taking the oxycodone and our office to write for Percocet 10/325 1 tablet q4-6hrs for how ever long we feel necessary. Once we no longer need to prescribe pain medication, patient to resume the Oxycodone 10mg as prescribed by pain management. documented in this encounter [facility] 12-27-2022 Telephone encounter Note Date/Time patient contacted: 12/27 4:40 Has a follow up appointment been made with your primary care provider? (If yes, note date/time of appt. If no, are we able to schedule or get patient in contact with provider) : pre op blood work on Thursday. Surgery will call on Thursday for PCP Have your prescriptions been filled?: (If no, why not, contact pharmacist if needed): na Now that you are home, I want to make sure that you understand the most important things about taking care of yourself. I see that you were discharged with a diagnosis of DENNYS, do you know what symptoms or health problems to watch for or when to call your provider? yes Do you have any other questions about your discharge or follow up care instructions?: (if yes, what) : no Are there any caregivers from the hospital that you would like to recognize or compliment? Everyone was great to him. [facility] 12-27-2022 Miscellaneous Notes Date/Time patient contacted: 12/27 4:40 Has a follow up appointment been made with your primary care provider? (If yes, note date/time of appt. If no, are we able to schedule or get patient in contact with provider) : pre op blood work on Thursday. Surgery will call on Thursday for PCP Have your prescriptions been filled?: (If no, why not, contact pharmacist if needed): na Now that you are home, I want to make sure that you understand the most important things about taking care of yourself. I see that you were discharged with a diagnosis of DENNYS, do you know what symptoms or health problems to watch for or when to call your provider? yes Do you have any other questions about your discharge or follow up care instructions?: (if yes, what) : no Are there any caregivers from the hospital that you would like to recognize or compliment? Everyone was great to him. documented in this encounter [facility] 12-25-2022 Miscellaneous Notes Was following for possible C services. Both OT and PT therapies have noted that patient has no acute therapy needs at this time. Denies need. Patient to have future elective cholecystectomy later this month. This PACC will sign off this referral. Problem: Pain - Adult Goal: Verbalizes/displays adequate comfort level or baseline comfort level Outcome: Progressing Problem: Safety - Adult Goal: Free from fall injury Outcome: Progressing Problem: Discharge Planning Goal: Discharge to home or other facility with appropriate resources Outcome: Progressing Problem: Problem Interventions Goal: Promote nutritional intake Outcome: Progressing The patient is Moderately Stable - Low risk of patient condition declining or worsening The patient's goals for the shift include safety The clinical goals for the shift include fluids and comfort Tool 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 Aware PT therapy recommending home with assist PRN with no acute PT needs at this time. Will follow and await final discharge plan. Patient is being monitored for possible surgical intervention on this admit. Care Managment Initial Assessment Date: 12/23/2022 Patient Name: Woody Ni : 1960 Patient Information Source of Information: Patient Cognition/Language: WFL - Within Functional Limits Permission given to speak with patient underwriting account representative/caregiver as indicated: Yes Confirmation of Payer with patient/family: Yes Payer Name: Medicare : Yes Confirmation of Primary Care Physician: Confirmed PCP Name: Dr. Quezada Seen in last 2 years?: Yes Primary Caregiver: Self If assistance needed, confirmed caregiver ready, willing and able to care for patient at discharge: Confirmed with: Living Arrangements Current Residence: House Number of Floors 2 (Lives on main level) Number of Entry Steps: 2 Bed/Bath Levels: Facility: Facility Name: Plan to Return: Yes Lives with: Spouse/significant other Support Systems: Spouse/significant other Activities of Daily Living Ambulation: Independent Bathing/Dressing: Independent Elimination/Continence/Toileting: Independent Feeding: Independent Who Assists with Activities of Daily Living: Instrumental Activities of Daily Living Prescription Coverage: Yes Pharmacy Used: [facility] Medication Management: Independent Transportation/Shopping: Assistance Provider Transportation/Shopping Assistance Provider Name: Miguel Angel Gillespie Transportation Mode: Needs Assistance with Transportation at Discharge: No Meal Preparation: Independent Laundry/Cleaning: Independent Finances/Bill Paying: Independent Communication: Independent Types of Care Services/Equipment Utilized Care Services: (N/A) Dialysis Type: NA Durable Medical Equipment: Cane, Walker, Wheelchair (standard or power) Patient's Goal/Discharge Plan Patient expects to be discharged to: Home with Home Care Discharge Planning Actions: Continue to follow Patient's Choice Rights and [employer] and Collaborative Relationships Disclosed as Indicated for Post-Acute Care: Yes Interdisciplinary Team Engagement: Social Work Referral for: Additional Information: Patient admitted with RUQ pain, elevated Cr. Nephrology, GI consulted and PT evaluation pending and OT recommending home therapy. Referral placed in [facility] to Home Care. Miguel Angel Gillespie will provide transportation home. Alexandra Chaves RN The patient is Moderately Stable - Low risk of patient condition declining or worsening The patient's goals for the shift include The clinical goals for the shift include documented in this encounter [facility] 12-25-2022 Note Formatting of this n ote might be different from the original. Was following for possible HHC services. Both OT and PT therapies have noted that patient has no acute therapy needs at this time. Denies need. Patient to have future elective cholecystectomy later this month. This PACC will sign off this referral. [employer] 12-25-2022 Note Formatting of this n ote might be different from the original. Was following for possible HHC services. Both OT and PT therapies have noted that patient has no acute therapy needs at this time. Denies need. Patient to have future elective cholecystectomy later this month. This PACC will sign off this referral. [facility] [employer] 12-25-2022 History of Present illness Narrative GENERAL SURGERY Progress Note PATIENT NAME: Woody Ni TODAY'S DATE: 12/25/2022 SUBJECTIVE: Follow up on abdominal pain, nausea and vomiting. Feels good today. Denies abdominal pain. Tolerating diet without pain nausea or vomiting. Hoping to go home today. Pain controlled Yes Other Complaints No Flatus/BM/or Ostomy function {Yes OBJECTIVE: VITALS: BP 104/66 (BP Location: Right arm, Patient Position: Sitting) Pulse 92 Temp 36.4 C (97.6 F) (Temporal) Resp 16 Ht 5' 10" (1.778 m) Wt 177 lb 7.5 oz (80.5 kg) SpO2 96% BMI 25.46 kg/m INTAKE/OUTPUT: I/O last 3 completed shifts: In: 1218.3 (15.1 mL/kg) [P.O.:240; I.V.:978.3 (12.2 mL/kg)] Out: - (0 mL/kg) Weight: 80.5 kg No intake/output data recorded. REVIEW OF SYSTEMS: Pertinent positives and negatives as per interval history section PHYSICAL EXAM: CONSTITUTIONAL: A&O x 3, LUNGS: Resp effort easy and unlabored, breath sounds normal CARDIOVASCULAR: RRR ABDOMEN: soft non distended non tender MUSCULOSKELETAL: Normal range of motion NEUROLOGIC: Level of Alertness: alert PSYCHIATRIC: Speech is normal SKIN: Warm, dry, and intact Data: CBC: Recent Labs 12/22/22 1845 12/23/228 12/24/22 0336 WBC 4.9 3.1* 2.5* HGB 12.3* 11.3* 11.7* HCT 35.8* 33.8* 34.9* PLT 76* 56* 70* BMP: Recent Labs 12/23/22 0338 12/24/22 0336 12/25/22 0240 NA 128* 129* 131* K 4.3 3.7 4.0 CL 103 101 102 CO2 18* 22 23 BUN 41* 21* 13 CREATININE 5.24* 2.09* 1.36* GLUCOSE 78 89 110* Hepatic: Recent Labs 12/22/225 12/24/226 AST 205* 141* ALT 214* 169* BILITOT 1.0 1.4* ALKPHOS 59 52 ASSESSMENT AND PLAN: Mr. Ni is a 62 y.o. M presenting with nausea/vomiting -Cr improving to 1.36, nephrology following -CT demonstrating questionable rectum thickening, nondistended gallbladder without stones -US gallbladder August 2022 with diffuse hepatic steatosis, gallbladder wall thickening, possible tiny pericholecystic fluid, no gallstones -Tolerating low fat diet -Medical mgmt per primary team Disposition: Patient tolerating low fat diet without abdominal symptoms. Okay for discharge home with plans for elective cholecystectomy with Dr. Fang later this month. Patient counseled on risks, benefits, and alternatives of treatment plan today. Patient states an understanding and willingness to proceed with plan. Marlyn Jones, LEAH - ANIMAL CONTROL SPECIALIST Occupational Therapy Facility/Department: [facility] Occupational Therapy Treatment NAME: Woody Ni : 1960 Date of Service: 12/24/2022 Discharge Recommendations: Home with assist PRN, Home with Home health OT Assessment Performance deficits / Impairments: Decreased functional mobility , Decreased ADL status, Decreased ROM, Decreased endurance, Decreased balance, Decreased high-level IADLs, Decreased posture Assessment: Pt participated in OT treatment addressing bed mobility, transfers, fx mobility, dressing and activity tolerance to maximize his indep for discharge. Pt goals are adequate for discharge OT will sign off. Pt is safe to return home with PRN assist. Prognosis: Good History: Pt in 12/22 with c/o nausea / vomiting, underlying cirrhosis and RUQ flank pain. Exam: AM-PAC REQUIRES OT FOLLOW-UP: Yes Patient Diagnosis(es): The primary encounter diagnosis was DENNYS (acute kidney injury) (CMS/HCC) (HCC). A diagnosis of Acute kidney injury (CMS/HCC) (HCC) was also pertinent to this visit. has a past medical history of Anxiety, Back pain, Cirrhosis (CMS/HCC) (HCC), Diabetes mellitus (HCC), Gout, Hepatitis C, Hypertension, and 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. has a past surgical history that includes Back surgery; Laminectomy; and [place] tooth extraction. Restrictions Restrictions/Precautions Restrictions/Precautions: General Precautions, Fall Risk Required Braces or Orthoses?: No Cognition/Orientation Overall Cognitive Status: WFL Overall Orientation Status: Within Functional Limits Subjective Subjective Subjective: pleasant and cooperative General Comments Comments: Ok to see per RN Pain Assessment Pain Assessment: 0-10 Pain Score: 5 - Moderate pain Pain Location: Back Pain Orientation: Right Objective Putting On/Taking Off Footwear Assistance Level: Independent Skilled Clinical Factors: able to don doff B socks independently Toileting Skilled Clinical Factors: transfer only Balance Sitting Balance: Modified independent Standing Balance: Modified independent Functional Mobility Functional - Mobility Device: Cane Activity: (pt ambulated to bathroom and then out in the hallway- long house hold/short community distances.) Functional Mobility Comments: Pt ambulated to/from bathroom and in the hallway (long house hold distances/short community distances) Toilet Transfers Toilet - Technique: Ambulating Equipment Used: Grab bars Toilet Transfer: Modified independent Toilet Transfers Comments: pt has grab bars at home Bed mobility Supine to Sit: Modified independent Sit to Supine: Modified independent Comment: pt seated on one side of the bed, transitions to supine and sits up on the other side of the bed independently Transfers Stand to sit: Modified independent Transfer Comments: Pt stood from EOB up to cane with no cues for hand placement. Denies dizziness with positional changes. Plan Times per Week: d/c OT Safety Safety Devices in place: Yes Type of devices: All fall risk precautions in place, Call light within reach, Gait belt, Patient at risk for falls, Left in bed, Nurse notified Restraints Initially in place: No AM-PAC Score AM-PAC Inpatient Daily Activity Raw Score: 24 ADL Inpatient CMS G-Code Modifier: CH Goals Encounter Problems Encounter Problems (Active) Dressing Upper Extremities Patient will complete upper body dressing MOD I (Adequate for Discharge) Start: 12/23/22 Expected End: 12/30/22 Dressings Lower Extremities Patient will dress lower body MOD I (Adequate for Discharge) Start: 12/23/22 Expected End: 12/30/22 Mobility Patient will demonstrate functional mobility with MOD I and FWW (Adequate for Discharge) Start: 12/23/22 Expected End: 12/30/22 Toileting Patient will complete toileting tasks at standard toilet with modified independence. (Adequate for Discharge) Start: 12/23/22 Expected End: 12/30/22 Transfers Patient will complete functional transfer with rolling walker with modified independence in order to prepare for ambulation. (Adequate for Discharge) Start: 12/23/22 Expected End: 12/30/22 Therapy Time Individual Co-treatment Time In 1344 Time Out 1356 Minutes 12 Timed Code Treatment Minutes: 12 Minutes (self) Toma Hardwick OT [facility] Progress Note Subjective/ 62 y.o. year old male who we are seeing in consultation for DENNYS. NAEON Resting in bed Feels better Appetite good, no N/V No other new issues at this time ROS done and negative unless mentioned as above No change in PFSH All data labs/interval notes and overnight issues are reviewed Objective/ Vitals: 12/24/22 0007 12/24/22 0421 12/24/22 0746 12/24/22 1124 BP: 135/79 (!) 145/94 130/80 134/79 BP Location: Right arm Right arm Left arm Right arm Patient Position: Lying Lying Sitting Sitting Pulse: 85 86 80 81 Resp: 18 18 14 16 Temp: 36 C (96.8 F) 36.3 C (97.4 F) 36.2 C (97.1 F) 35.8 C (96.4 F) TempSrc: Tympanic Temporal Temporal Temporal SpO2: 98% 96% 98% Weight: Height: Intake/Output Summary (Last 24 hours) at 12/24/2022 1140 Last data filed at 12/24/2022 0800 Gross per 24 hour Intake 1218.33 ml Output 175 ml Net 1043.33 ml amLODIPine, 2.5 mg, Oral, Daily dicyclomine, 20 mg, Oral, TID AC enoxaparin, 30 mg, SubCUTAneous, Daily folic acid, 1 mg, Oral, Daily influenza vaccine split quadravalent, 0.5 mL, IntraMUSCular, Once levothyroxine, 50 mcg, Oral, qAM AC [Held by provider] losartan, 100 mg, Oral, Daily [Held by provider] metFORMIN, 1,000 mg, Oral, Daily with breakfast oxyCODONE, 10 mg, Oral, q6h pantoprazole, 40 mg, Oral, Daily tamsulosin, 0.4 mg, Oral, Daily lactated Ringer's, 100 mL/hr, Last Rate: 100 mL/hr (12/24/22 1046) PRN medications: acetaminophen OR acetaminophen, albuterol, morphine, ondansetron ODT OR ondansetron, polyethylene glycol (PEG) 3350 Constitutional: Alert, awake, no apparent distress Eyes: No icterus, no pallor HEENT: no pallor/cyanosis or icterus Cardiovascular: S1, S2 without m/r/g Respiratory: CTA B without w/r/r GI: +bs, soft, nt : pascual absent Ext: no LE edema Neck: supple, no thyroid enlargement, no JVD elevation Skin: warm, moist, no rashes Results from last 7 days Lab Units 12/24/22 0336 12/23/22 0338 12/22/22 1845 SODIUM mmol/L 129* 128* 124* POTASSIUM mmol/L 3.7 4.3 5.1 CHLORIDE mmol/L 101 103 92* CO2 mmol/L 22 18* 22 BUN mg/dL 21* 41* 46* CREATININE mg/dL 2.09* 5.24* 6.62* GLUCOSE mg/dL 89 78 101* CALCIUM mg/dL 9.0 8.6 9.6 Results from last 7 days Lab Units 12/24/22 0336 12/23/22 0338 12/22/22 1845 WBC AUTO 10*3/uL 2.5* 3.1* 4.9 HEMOGLOBIN g/dL 11.7* 11.3* 12.3* HEMATOCRIT % 34.9* 33.8* 35.8* PLATELETS AUTO 10*3/uL 70* 56* 76* Assessment/Plan DENNYS/ATN 2/2 severe volume depletion from poor p.o. intake in the setting of chronic nausea vomiting in the setting of losartan and diuresis 2. Acute hyponatremia secondary to DENNYS with impaired free water clearance + poor solute intake 3. Acute NAGMA secondary to IVF normal saline + DENNYS 4. Intractable nausea and vomiting 5. Chronic cholecystitis 6. Alcohol abuse Plan: -Scr improved very nicely, bl~1.0, non-oliguric, BP stable -C/w IVF for 1 more day -Hold losartan and lasix -Ok for prn diuresis for s/s of SOB -PVR negative for AUR -Na continues to improve -All other care per primary -Anticipate ok for discharge planning from renal standpoint in ~24-48 hours -Ok for cholecystectomy from renal standpoint -We will follow closely with you Thank you for the consult and the opportunity to participate in the care of this patient. Please do not hesitate to contact us with any questions or concerns. Ophelia Okeefe APRN, ANIMAL CONTROL SPECIALIST [facility], [facility] [phone] Seen and examined. Agree with above assessment and plan. Cr improving. C/w IVF for one more day. Attending Attestation [facility] - Surgery [facility] Physicians Surgery Patient Name: Woody Ni Date: 12/24/22 Patient seen and examined. Tolerating diet. Having bowel function. Ambulating. Voiding. Exam: Abdomen: Soft, nontender, nondistended. Assessment and Plan: 62 y.o. male with nausea and emesis CT scan and prior ultrasound demonstrate gallbladder wall thickening with gallbladder sludge. Normal common bile duct. LFTs slightly elevated this admission. Has a history of 6 pack daily drinking. Last drink 10/15 DENNYS with creatinine greater than 6 upon presentation, slowly improving with IV fluids Continue gentle IV fluid resuscitation for acute kidney injury. We will advance diet as tolerated to low fat diet The patient's abdominal pain has improved and he would like to go home and proceed with elective cholecystectomy with Dr. Fang Ok to discharge in AM if tolerates low fat diet. I personally supervised my PA in the evaluation and management of Woody Ni in the development of a treatment plan for this patient. I personally interviewed the patient and performed an individual physical examination. In addition, I discussed the patient's condition and treatment options with them. I have also reviewed and agree with the past medical, family and social history and care plan unless otherwise noted. All of the patient's questions were answered. low medical decision making and case complexity with 25 minute total care time including chart review, care coordination and face to face encounter was spent discussing/counseling the patient regarding the care plan for this patient. The patient was seen and examined independently and relevant data reviewed by myself. A full chart review was performed. Colin Sánchez MD General Surgery Pager #[phone] Perfect Serve: Colin Sánchez 3:55 PM 12/24/2022 GENERAL SURGERY Progress Note PATIENT NAME: Woody Ni TODAY'S DATE: 12/24/2022 SUBJECTIVE: Patient seen today sitting up in bed, in good spirits. He states that he feels much better since admission, notes that he is urinating normally now. Patient denies current abdominal pain, nausea, or vomiting. He is tolerating CLD and agreeable to trial FLD. Patient hopeful for surgery HERNANDO but does understand benefits of medical optimization and surgery with established surgeon. Pain controlled Yes Other Complaints No Flatus/BM/or Ostomy function Yes OBJECTIVE: VITALS: BP 134/79 (BP Location: Right arm, Patient Position: Sitting) Pulse 81 Temp 35.8 C (96.4 F) (Temporal) Resp 16 Ht 5' 10" (1.778 m) Wt 177 lb 7.5 oz (80.5 kg) SpO2 98% BMI 25.46 kg/m INTAKE/OUTPUT: I/O last 3 completed shifts: In: 4031.7 (50.1 mL/kg) [P.O.:240; I.V.:1791.7 (22.3 mL/kg); IV Piggyback:2000] Out: 175 (2.2 mL/kg) [Urine:175 (0.1 mL/kg/hr)] Weight: 80.5 kg I/O this shift: In: 240 [P.O.:240] Out: - REVIEW OF SYSTEMS: Pertinent positives and negatives as per interval history section PHYSICAL EXAM: CONSTITUTIONAL: A&O x 3, LUNGS: Resp effort easy and unlabored, breath sounds normal CARDIOVASCULAR: RRR ABDOMEN: soft, nondistended, nontender, peritoneal signs absent MUSCULOSKELETAL: Normal range of motion NEUROLOGIC: Level of Alertness: alert PSYCHIATRIC: Speech is normal SKIN: Warm, dry, and intact Data: CBC: Recent Labs 12/22/22184412/23/2233712/24/22 0336 WBC 4.9 3.1* 2.5* HGB 12.3* 11.3* 11.7* HCT 35.8* 33.8* 34.9* PLT 76* 56* 70* BMP: Recent Labs 12/22/22184412/23/2233712/24/22335 NA 124* 128* 129* K 5.1 4.3 3.7 CL 92* 103 101 CO2 22 18* 22 BUN 46* 41* 21* CREATININE 6.62* 5.24* 2.09* GLUCOSE 101* 78 89 Hepatic: Recent Labs 12/22/22184412/24/22 0336 AST 205* 141* ALT 214* 169* BILITOT 1.0 1.4* ALKPHOS 59 52 ASSESSMENT AND PLAN: Mr. Ni is a 62 y.o. M presenting with nausea/vomiting -Cr improving to 2.09, nephrology following -LFTs improving, bilirubin 1.4 -CT demonstrating questionable rectum thickening, nondistended gallbladder without stones -US gallbladder August 2022 with diffuse hepatic steatosis, gallbladder wall thickening, possible tiny pericholecystic fluid, no gallstones -WBC 2.5, Hgb 11.7 -Trial FLD -IVF -Medical mgmt per primary team Disposition: Patient symptomatically improved today and tolerating diet, trial FLD. Continue medical optimization. If continues to improve, plan for lap cholecystectomy as scheduled with Dr. Walsh on 01/05. If patient were to become acutely symptomatic, may consider surgical intervention this hospitalization. Will continue to follow. Patient counseled on risks, benefits, and alternatives of treatment plan today. Patient states an understanding and willingness to proceed with plan. ALYSSA [facility]og[facility] Department of Family Medicine Daily Progress Note Subjective Chief Complaint (required for billing): Acute kidney injury (CMS/HCC) (HCC) Pt doing well today still having a little pain but tolerating diet. His creatinine is down to 2 today ROS: Review of Systems Objective BP 115/74 Pulse 90 Temp 36.9 C (98.5 F) Resp 18 Ht 5' 10" (1.778 m) Wt 177 lb 7.5 oz (80.5 kg) SpO2 95% BMI 25.46 kg/m Physical Exam Pt is alert and oriented x 3 Heent wnl Heart regular Lungs ctab Abd tender in the ruq Ext no edema Labs Notable Labs: Current Medications Medication orders reviewed, see MAR Assessment/Plan Principal Problem: Acute kidney injury (CMS/HCC) (HCC) Active Problems: DENNYS (acute kidney injury) (CMS/HCC) (HCC) Abdominal pain RUQ pain cholecystitis DENNYS due to dehydration Cirrhosis HTN HPL Pancytopenia Plan If continues to improve he can go home and have his surgery on the FEN:Adult diet Regular; Low Fat (less than or equal to 50 gm/day) GI prophylaxis: PPI ordered DVT prophylaxis: lovenox # Anticipated Discharge - Date - 1 d - Location - Home - Pending the following - KACIE BENZ DO 12/24/22 8:26 PM Physical Therapy Facility/Department: [facility] Physical Therapy Initial Evaluation NAME: Woody Ni : 1960 Date of Service: 12/23/2022 Discharge Recommendations: Home with assist PRN PT Equipment Recommendations Equipment Needed: No Assessment Assessment: Pt admitted 12/22 with nausea, vomiting and liver cirrhosis. Pt with RUQ pain. GI following with possible cholecystectomy. On evaluation patient completed all mobility independently and ambulated functional distance with use of single point cane. Pt with abdominal pain throughout that did not change with mobility. Pt has no acute PT needs at this time and is safe to return home with prn assist. Decision Making: Low Complexity History: Pt admitted 12/22 with nausea, vomiting and liver cirrhosis. Pt with RUQ pain. GI following with possible cholecystectomy. PMH listed below. Exam: AM-PAC Clinical Presentation: Pt has PMH as indicated below that contributes to his clinical presentatin. Barriers to Learning: none Requires PT Follow-Up: No Barriers to Learning: none Activity Tolerance Activity Tolerance: Patient Tolerated treatment well Patient Diagnosis(es): The primary encounter diagnosis was DENNYS (acute kidney injury) (CMS/HCC) (HCC). A diagnosis of Acute kidney injury (CMS/HCC) (HCC) was also pertinent to this visit. has a past medical history of Anxiety, Back pain, Cirrhosis (CMS/HCC) (HCC), Diabetes mellitus (HCC), Gout, Hepatitis C, Hypertension, and 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. has a past surgical history that includes Back surgery; Laminectomy; and [place] tooth extraction. Restrictions Restrictions/Precautions Restrictions/Precautions: General Precautions, Fall Risk Required Braces or Orthoses?: No Vision/Hearing Vision: Within Functional Limits Hearing: Functional/adequate for paticipation in therapy Cognition/Orientation Overall Cognitive Status: WFL Overall Orientation Status: Within Functional Limits Subjective General Chart Reviewed: Yes Patient Assessed for Rehabilitation Services: Yes Family / Caregiver Present: No Follows Commands: Within Functional Limits General Comment Comments: Per RN patient okay for therapy Subjective Subjective: Pt lying in bed and agreeable to therapy Social/Functional History Social/Functional History Lives With: Spouse Type of Home: House Home Layout: Two level Bathroom Shower/Tub: Tub/Shower unit Bathroom Equipment: (denies) Bathroom Accessibility: Accessible Home Equipment: Cane, Rolling walker, Wheelchair-manual ADL Assistance: Independent Homemaking Assistance: Independent Homemaking Responsibilities: Yes Ambulation Assistance: Independent (with cane) Transfer Assistance: Independent Active Environmental Field Office Manager: No Patient's Environmental Field Office Manager Info: Objective Observation/Palpation Posture: Fair Observation: forward flexed posture; PIV detached by RN for mobility Gross Assessment Gross Assessment: Yes AROM: Generally decreased, functional PROM: Generally decreased, functional Strength: Generally decreased, functional Coordination: Generally decreased, functional Tone: Normal Sensation: Intact Gross Assessment: Yes AROM: Generally decreased, functional PROM: Generally decreased, functional Strength: Generally decreased, functional Coordination: Generally decreased, functional Tone: Normal Sensation: Intact Bed mobility Supine to Sit: Modified independent Sit to Supine: Modified independent Scooting: Modified independent Comment: HOB slightly elevated. No difficulty completing. Denies dizziness. Transfers Sit to Stand: Modified independent Stand to sit: Modified independent Comment: from EOB to SPC with no assist. No difficulty completing Ambulation Ambulation: Yes Ambulation 1 Surface 1: Level tile Device 1: Single point cane Assistance 1: Mod independent Quality of Gait 1: slow heide, reciprocal stepping Distance (ft) 1: ~300'x1 Comments 1: Pt completed with SPC and demos normal gait mechanics with increased time. No unsteadiness noted. Balance Posture: Good Sitting - Static: Good Sitting - Dynamic: Good Standing - Static: Good Standing - Dynamic: Good, - Plan Times per Week: eval and treat only Safety Safety Devices Safety Devices in Place: Yes Type of Devices: All fall risk precatuions in place, Call light within reach, Gait belt AM-PAC Score AM-PAC Inpatient Mobility Raw Score: 24 Mobility Inpatient [facility] G-Code Modifier: CH Goals Eval only Education Education Given To: Patient Education Provided: PT Role, Plan of Care, Energy Conservation, Gait Training Education Method: Verbal Barriers to Learning: None Education Outcome: Verbalized understanding Therapy Time Individual Co-treatment Time In 1537 Time Out 1548 Minutes 11 Krystle Bull PT Occupational Therapy Facility/Department: [address] Occupational Therapy Initial Evaluation NAME: Woody Ni : 1960 Date of Service: 12/23/2022 Discharge Recommendations: Home with assist PRN, Home with Home health OT OT Equipment Recommendations Equipment Needed: No Assessment Performance deficits / Impairments: Decreased functional mobility , Decreased ADL status, Decreased ROM, Decreased endurance, Decreased balance, Decreased high-level IADLs, Decreased posture Assessment: Pt in 12/22 with c/o nausea / vomiting, underlying cirrhosis and RUQ flank pain. He was previously IND for ADLs, IADLs, and functional transfers / mobility with a SPC. He is currently CGA - SBA for ADLs, functional transfers / mobility with a SPC. He fatigues quicky with OOB activity, reporting increased c/o dizziness with OOB activity. He would benefit from skilled OT services to address the above. Recommend planned D/C for [facility] OT with assist PRN. Prognosis: Good Decision Making: Medium Complexity History: Pt in 12/22 with c/o nausea / vomiting, underlying cirrhosis and RUQ flank pain. Exam: AM-PAC Assistance / Modification: CGA - SBA REQUIRES OT FOLLOW-UP: Yes Activity Tolerance Activity Tolerance: Patient limited by fatigue Patient Diagnosis(es): The primary encounter diagnosis was [place] (acute kidney injury) (CMS/HCC) (HCC). A diagnosis of Acute kidney injury (CMS/HCC) (HCC) was also pertinent to this visit. has a past medical history of Anxiety, Back pain, Cirrhosis (CMS/HCC) (HCC), Diabetes mellitus (HCC), Gout, Hepatitis C, Hypertension, and 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. has a past surgical history that includes Back surgery; Laminectomy; and [place] tooth extraction. Restrictions Restrictions/Precautions Restrictions/Precautions: General Precautions, Fall Risk Required Braces or Orthoses?: No Vision/Hearing Vision: Within Functional Limits Hearing: Functional/adequate for paticipation in therapy Cognition/Orientation Overall Cognitive Status: WFL Overall Orientation Status: Within Functional Limits Subjective General Chart Reviewed: Yes Patient Assessed for Rehabilitation Services: Yes Family / Caregiver Present: No Subjective Subjective: pleasant and cooperative General Comments Comments: Ok to see per RN Pain Assessment Pain Assessment: 0-10 Pain Score: 10 - Worst possible pain Pain Type: Acute pain Pain Location: Abdomen, Back Pain Orientation: Right, Lower Pain Interventions: Ambulation/increased activity, Repositioned, Rest (RN aware) Social/Functional History Social/Functional History Lives With: Spouse Type of Home: House Home Layout: Two level Bathroom Shower/Tub: Tub/Shower unit Bathroom Equipment: (denies) Bathroom Accessibility: Accessible Home Equipment: Cane, Rolling walker, Wheelchair-manual ADL Assistance: Independent Homemaking Assistance: Independent Homemaking Responsibilities: Yes Ambulation Assistance: Independent (with cane) Transfer Assistance: Independent Active Environmental Field Office Manager: No Patient's Environmental Field Office Manager Info: Objective Gross Assessment: Yes AROM: Generally decreased, functional (~ 90 BUE shoulder flexion functionally observed) Strength: Generally decreased, functional (> +3/5 grossly observed with functional activity) Observation/Palpation Posture: Fair Observation: forward flexed posture, PIV intact and in place Balance Sitting Balance: Stand by assistance (seated EOB) Standing Balance: Contact guard assistance (SBA becoming CGA with fatigue and light headedness) Standing Balance Time: ~ 2 minutes Activity: standing EOB, standing rest breaks in hallway Comment: no true LOB, incresaed reliance on cane and environmental supports for stability. Increased fatigue noted with no SOB. Minimal c/o lightheadedness leading to increased instability. Functional Mobility Functional - Mobility Device: Cane Activity: Other (functional home distances in hallway) Assist Level: Contact guard assistance Functional Mobility Comments: Initially SBA transitioning to CGA as pt fatigued and became light headed. He initially utilized only the cane, however transitioned to utilizing environmental supports on non supported side. Assist for IV line management ADL Feeding: Modified independent Grooming: Stand by assistance UE Bathing: Stand by assistance LE Bathing: Contact guard assistance UE Dressing: Stand by assistance LE Dressing: Contact guard assistance Toileting: Contact guard assistance Additional Comments: Pt requires increased time to complete all functional tasks this date. He demos appropriate functional reach for participation in seated and standing ADLs. Pt however limited by increased fatigue and instability with OOB activity, limiting participation in standing ADLs. Bed mobility Supine to Sit: Stand by assistance Sit to Supine: Stand by assistance Scooting: Stand by assistance Comment: HOB elevated, increased time required to complete. No c/o dizziness. Use of bed rails noted. Pt able to mobilize BLE and trunk to EOB without physical assist this date. Transfers Sit to stand: Stand by assistance Stand to sit: Stand by assistance Transfer Comments: from EOB to cane. No true LOB, use of bed rails for support. No c/o dizziness with positonal changes. Good BLE management for proper JM. Extended time required to complete. Mild c/o pain with activity. Plan Times per Week: 5 visits Current Treatment Recommendations: Strengthening, Balance Training, Functional Mobility Training, Endurance Training, Pain Management, Safety Education & Training, Patient/Caregiver Education & Training, Equipment Evaluation, Education, & procurement, Home Management Training, Self-Care / ADL Plan Comment: POC and goals established in collaboration with pt. Safety Safety Devices in place: Yes Type of devices: All fall risk precautions in place, Call light within reach, Gait belt, Patient at risk for falls, Left in bed, Nurse notified Restraints Initially in place: No AM-PAC Score AM-PAC Inpatient Daily Activity Raw Score: 19 ADL Inpatient CMS G-Code Modifier: CK Goals Encounter Problems Encounter Problems (Active) Dressing Upper Extremities Patient will complete upper body dressing MOD I Start: 12/23/22 Expected End: 12/30/22 Dressings Lower Extremities Patient will dress lower body MOD I Start: 12/23/22 Expected End: 12/30/22 Mobility Patient will demonstrate functional mobility with MOD I and FWW Start: 12/23/22 Expected End: 12/30/22 Toileting Patient will complete toileting tasks at standard toilet with modified independence. Start: 12/23/22 Expected End: 12/30/22 Transfers Patient will complete functional transfer with rolling walker with modified independence in order to prepare for ambulation. Start: 12/23/22 Expected End: 12/30/22 Education Education Given To: Patient Education Provided: OT Role, Plan of Care, Transfer Training Education Method: Demonstration, Verbal Barriers to Learning: None Education Outcome: Demonstrated understanding, Verbalized understanding, Continued education needed Therapy Time Individual Co-treatment Time In 815 Time Out 0828 Minutes 12 Maicol Ortiz OT Nutrition Assessment Type and Reason for Visit: Initial, Positive Nutrition Screen (Unsure amount weight loss, decreased intake/appetite) Nutrition Recommendations/Plan: Recommend advance diet to Full Liquids. Pt tolerating CLD well. Monitor need for low-fat diet when pt's diet is fully advanced. Per MNT protocol, will initiate Ensure Clear apple BID (8 oz = 240 kcals, 8 gm protein). Recommend obtain updated HgbA1c (last 4.9 06/04/22). Monitor weight, labs, I/Os, skin integrity and overall nutrition status. RD to follow up weekly. Malnutrition Assessment: Malnutrition Status: At risk for malnutrition (Comment) (Pt has a hx of Severe Malnutrition (06/04/22) however he appears well nourished and his wt is stable. 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 Last emesis 12/21 vs 12/22, tolerating CLD well since 12/22) Weight Loss: No significant weight loss Body Fat Loss: No significant body fat loss Muscle Mass Loss: No significant muscle mass loss Fluid Accumulation: No significant fluid accumulation Sterilisation Technician Strength: Not Performed Nutrition Assessment: 62 y.o. male with PMHx DM, HTN, hypothyroid, cirrhosis that presents with nausea and vomiting (intermittent for several weeks and months however it is gotten worse over the last few days). Patient states he does have cirrhosis from drinking--reports has not had an alcoholic beverage since December 16 (has hx drinking 6 beers/day). Patient states that he also knows that he has a bad gallbladder--has a follow-up with general surgery to at some point have the gallbladder out. Patient is diabetic but has not been checking his BS for the past week. Labs: sodium of 124, creatinine of 6.62, elevated AST and ALT. Suspect severe dehydration due to GI losses--received 2 L of normal saline. Admitted d/t DENNYS. Pt is currently on a clear liquid diet. RD visited pt this AM. 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 He reports tolerating CLD well so far. At baseline pt reports taking small bites of meals and eating slowly d/t nausea. He reports he has gallbladder surgery scheduled for January 15 which he hopes will help with the n/v. Pt denies following a diabetic at home. RD offered diet education/discussion however pt declined and stated he would like to talk to his PCP about it. Pt appears well nourished with no muscle/subcutaneous fat losses observed. He reports a UBW of 180#. Of note, pt has a hx of severe malnutrition in the context of acute illness diagnosed during a previous admit on 06/04/22. His weight at that time had decreased from 222# (February 2022) to 177# (06/04/22). It appears his weight has remained stable since then, as his CBW is 177# (12/23 bed). Pt agreeable to Ensure clear apple. Estimated Daily Nutrient Needs: Energy Requirements Based On: Kcal/kg Weight Used for Energy Requirements: [place] Weight for Energy Calculation (kg): 75 kg Total Energy Requirements (kcals/day): 27-30 kcal/kg = 5187-0199 kcal/day Weight Used for Protein Requirements: [place] Weight in Kg Used for Protein Requirements: 75 kg Estimated Total Protein (g/day): 1.2-1.4 g/kg = 90-105 g/day Estimated Daily Total Fluid (ml/day): per MD Nutrition Related Findings: Pranav = 22, GI WDL, I/O+, Labs: BG 72/71, last HgbA1c 4.9 (06/04/22), Na 128, Cr 5.24, Meds: +Synthroid Wound Type: None Current Nutrition Therapies: Adult diet Clear liquid Current Oral Intake Average Meal Intake: (CLD) Average Supplements Intake: None Ordered Anthropometric Measures: Height: 177.8 cm (5' 10") Current Body Weight: 80.5 kg (177 lb 7.5 oz) (12/23 bed) Admission Body Weight: 81.6 kg (179 lb 14.3 oz) (12/22 stated) Usual Body Weight: 81.6 kg (180 lb) (180# stated. Per chart: 11/07/22 184#, 08/28/22 210# (outlier?), 06/05 177#, 05/15 177#) % Weight Change (Calculated): -1.4 [place] Body Weight (lbs) (Calculated): 166 lbs [place] Body Weight (Kg) (Calculated): 75 kg % [place] Body Weight (Calculated): 106.9 % BMI (kg/m2) (Calculated): 25.5 Weight Adjustment For: No Adjustment BMI Categories: Normal Weight (BMI 18.5-24.9) Nutrition Diagnosis: Inadequate energy intake related to altered GI function as evidenced by nausea, vomiting Nutrition Interventions: Nutrition Education/Counseling: Education declined Coordination of Nutrition Care: Continue to monitor while inpatient Goals: Goals: Meet at least 75% of estimated needs, by next RD assessment Nutrition Monitoring and Evaluation: Behavioral-Environmental Outcomes: None Identified Food/Nutrient Intake Outcomes: Food and Nutrient Intake, Supplement Intake, Diet Advancement/Tolerance Physical Signs/Symptoms Outcomes: Biochemical Data, Nutrition Focused Physical Findings, Skin, Weight, Nausea or Vomiting, Meal Time Behavior Discharge Planning: Too soon to determine Raya Blandon RD Contact: *[phone] documented in this encounter [facility] 12-24-2022 Plan of care note Problem: Pain - Adult Goal: Verbalizes/displays adequate comfort level or baseline comfort level Outcome: Progressing Problem: Safety - Adult Goal: Free from fall injury Outcome: Progressing Problem: Discharge Planning Goal: Discharge to home or other facility with appropriate resources Outcome: Progressing Problem: Problem Interventions Goal: Promote nutritional intake Outcome: Progressing The patient is Moderately Stable - Low risk of patient condition declining or worsening The patient's goals for the shift include safety The clinical goals for the shift include fluids and comfort [facility] 12-23-2022 Note Formatting of this n ote might be different from the original. Tool 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 Aware PT therapy recommending home with assist PRN with no acute PT needs at this time. Will follow and await final discharge plan. Patient is being monitored for possible surgical intervention on this admit. [facility] 12-23-2022 Note Formatting of this n ote might be different from the original. Tool 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 Aware PT therapy recommending home with assist PRN with no acute PT needs at this time. Will follow and await final discharge plan. Patient is being monitored for possible surgical intervention on this admit. [facility] 12-23-2022 Consult note Associated Order (s): Inpatient consult to Gastroenterology Images from the original note were not included. GI CONSULTATION Patient: Woody Ni : 1960 Primary Care Physician: Jani Quezada Inpatient consult to Gastroenterology Consult performed by: Ana Callaway MD Consult ordered by: Kacie Benz DO REASON FOR CONSULTATION: Nausea and vomiting, thickening in the rectum HISTORY OF PRESENT ILLNESS: Woody Ni is a 62 y.o. male with PMH below who presented to the ER complaining of abdominal pain and nausea/vomiting. Patient reports for about the last 9 months he has had issues with intermittent right upper quadrant pain that radiates to the back. This is often associated with some nausea and occasional vomiting. Exacerbated by food. Patient reports this started a few days ago the pain significantly worsened and then the nausea and vomiting progressed and he could not tolerate any oral intake. Patient does report sometimes massaging the area improves the pain but does never go away completely. No overt bleeding. Patient reports that he was scheduled to have a cholecystectomy with Dr. Fang on 01/05/2023. In the ER labs showed: Sodium 124, potassium 5.1, BUN 46, creatinine 6.62, alkaline phosphatase 59, AST 205, ALT 214, total bilirubin 1, normal lipase, WBC 49, hemoglobin 12.3, platelets 76. CT abdomen/pelvis shows: Questionable circumferential wall thickening of the rectum. Splenomegaly. Nonobstructing right renal calculi. Patient admitted for further evaluation and management. PAST MEDICAL HISTORY: Past Medical History: Diagnosis Date Anxiety Back pain Cirrhosis (CMS/HCC) (HCC) Diabetes mellitus (HCC) Gout Hepatitis C Hypertension Hypothyroidism PAST SURGICAL HISTORY: Past Surgical History: Procedure Laterality Date BACK SURGERY LAMINECTOMY WISDOM TOOTH EXTRACTION FAMILY HISTORY: Family History Problem Relation Name Age of Onset Depression Mother Depression Maternal Grandmother SOCIAL HISTORY: TOBACCO: reports that he has quit smoking. His smoking use included cigars. He has quit using smokeless tobacco. ETOH: reports current alcohol use of about 21.0 standard drinks per week. DRUGS: reports current drug use. Drug: Marijuana. Medications: Prior to Admission medications Medication Sig Start Date End Date Taking? Authorizing Provider acetaminophen (Tylenol) 325 MG tablet every 4 hours. Historical Provider, albuterol (2.5 MG/3ML) 0.083% nebulizer solution Inhale 2.5 mg. Historical Provider, albuterol 108 (90 Base) MCG/ACT inhaler INHALE TWO PUFFS BY MOUTH FOUR TIMES DAILY 11/09/19 Historical Provider, alendronate (Fosamax) 70 MG tablet Take 70 mg by mouth once a week. 05/19/17 Historical Provider, amLODIPine (Norvasc) 2.5 MG tablet Take 2.5 mg by mouth in the morning. 05/27/17 Historical Provider, Bioflavonoid Products (Alana-C) tablet Every 24 hours. Historical Provider, clotrimazole-betamethasone (Lotrisone) cream 03/31/17 Historical Provider, colchicine 0.6 MG tablet Take 0.6 mg by mouth in the morning and 0.6 mg at noon and 0.6 mg in the evening. 05/16/17 Historical Provider, Cyanocobalamin (Vitamin B-12) 5000 MCG tablet dispersible every 12 hours. Historical Provider, dicyclomine (Bentyl) 20 MG tablet Take 1 tablet (20 mg) by mouth in the morning and 1 tablet (20 mg) at noon and 1 tablet (20 mg) in the evening. Take before meals. 11/07/22 11/07/23 Beryl Holder PA-C fluticasone (Flonase) 50 MCG/ACT nasal spray Administer 1 spray into affected nostril(s). 04/27/17 Historical Provider, folic acid (Folvite) 1 MG tablet TAKE 1 TABLET BY MOUTH DAILY 06/06/22 06/06/23 Nicolas Qiu furosemide (Lasix) 20 MG tablet Take 20 mg by mouth. 05/18/17 Historical Provider, ipratropium (Atrovent) 0.02 % nebulizer solution 05/04/17 Historical Provider, ketoconazole (NIZOral) 2 % shampoo 11/18/19 Historical Provider, levothyroxine (Synthroid, Levoxyl) 50 MCG tablet TAKE 1 TABLET BY MOUTH DAILY 06/06/22 06/06/23 Nicolas Qiu levothyroxine (Synthroid, Levoxyl) 75 MCG tablet Every 24 hours. Historical Provider, lidocaine (Xylocaine) 2 % solution 11/18/19 Historical Provider, lidocaine (Xylocaine) 5 % ointment every 8 hours. Historical Provider, loperamide (Imodium A-D) 2 MG tablet every 6 hours. Historical Provider, loratadine (Claritin) 10 MG tablet Every 24 hours. Historical Provider, metFORMIN (Glucophage) 500 MG tablet Take 1,000 mg by mouth daily (with breakfast). 05/21/17 Historical Provider, niacin 100 MG tablet Every 24 hours. Historical Provider, olmesartan (BENIcar) 40 MG tablet Take 40 mg by mouth daily. 10/14/22 Historical Provider, ondansetron ODT (Zofran-ODT) [address] 4-8 mg under the tongue. 05/15/22 Historical Provider, oxyCODONE (Roxicodone) 10 MG immediate release tablet Take 10 mg by mouth in the morning and 10 mg at noon and 10 mg in the evening and 10 mg before bedtime. 05/29/17 Historical Provider, pantoprazole (ProtoNix) 40 MG EC tablet Take 40 mg by mouth daily. Historical Provider, potassium chloride ER (Micro-K) 10 MEQ ER capsule Take 10 mEq by mouth in the morning. 03/30/17 Historical Provider, pravastatin (Pravachol) 40 MG tablet Take 40 mg by mouth in the morning. 04/30/17 Historical Provider, predniSONE (Deltasone) 20 MG tablet TAKE ONE TABLET BY MOUTH TWICE DAILY FOR 5 DAYS 10/27/22 Historical Provider, tamsulosin (Flomax) 0.4 MG 24 hr capsule Take 0.4 mg by mouth daily. 01/27/22 Historical Provider, thiamine (Vitamin B-1) 100 MG tablet TAKE 1 TABLET BY MOUTH DAILY Patient not taking: Reported on 11/07/2022 06/06/22 12/22/22 Nicolas Qiu @[facility]@ ALLERGIES: Allergies Allergen Reactions Allopurinol Other Breaks out in blisters Penicillin G Swelling REVIEW OF SYSTEMS: No fever, chills, or sweats. Normal appetite and weight. No GRANADOS, visual disturbance, eye pain, jaundice, sore throat or mouth ulcers. No skin rash or itching. No CP, SOB, TABOR, cough or wheeze. No urinary frequency, urgency, hematuria, or dysuria. No myalgia, arthralgia, or joint swelling. No weakness, numbness, or confusion. GI per HPI. No polyuria, polydipsia, heat or cold intolerance. PHYSICAL EXAM: VS: BP 114/80 (BP Location: Right arm, Patient Position: Sitting) Pulse 96 Temp 36.3 C (97.4 F) (Temporal) Resp 18 Ht 5' 10" (1.778 m) Wt 177 lb 7.5 oz (80.5 kg) SpO2 99% BMI 25.46 kg/m Body mass index is 25.46 kg/m . GENERAL: Pleasant and NAD. HEENT: NCAT, PERRLA, EOMI, Scleral anicteric. Oropharhynx clear with no erythema or exudate. Neck supple, no cervical LAD or thyromegaly. CV: RRR, NL S1/S2, no murmurs. Distal pulses palpable and equal b/l. LUNGS: CTA b/l. Normal percussion and palpation. No W/R/R. Abdomen: + BS, soft, + TTP right upper quadrant region, non-distended. No hepatosplenomegaly. No mass felt. No rebound or guarding. No hernia. Extremities: No C/C/E. No muscle atrophy. Skin: No skin lesion or breakdown. Lymph: No cervical or supraclavicular LAD. Musculoskeletal: Strength 5/5 in all exts. No joint tenderness or effusions in LEs. Neurologic: A&O x 3, CN II-XII grossly intact. No asterixis. Non-focal. Psych: Normal affect and speech. LABS AND IMAGING: Recent blood work and relevant radiologic and endoscopic studies were reviewed and discussed with the patient. CBC: Recent Labs 12/22/22184412/23/22 0338 WBC 4.9 3.1* HGB 12.3* 11.3* HCT 35.8* 33.8* PLT 76* 56* HEPATIC: Recent Labs 12/22/22 1845 AST 205* ALT 214* BILITOT 1.0 ALKPHOS 59 LIPASE/AMYLASE: Recent Labs 12/22/22 184 LIPASE 111 LACTATE: No lab exists for component: LACTA BNP: No results for input(s): BNP in the last 72 hours. INR: No results for input(s): INR in the last 72 hours. @RISRSLT@ @IMAGES@ CT abdomen pelvis wo IV contrast Narrative: Patient Name: WOODY NI : 1960 Exam Date/Time: 12/22/2022 19:41 Procedure: CT ABDOMEN PELVIS WO IV CONTRAST Ordering Provider: MARIN MATTHEW Reason For Exam: Nausea/vomiting CT ABDOMEN AND PELVIS WITHOUT IV CONTRAST CLINICAL INDICATION: Nausea and vomiting TECHNIQUE: Multidetector spiral transaxial sequence was performed through the abdomen and pelvis. Images were reconstructed at 3 mm slice width at 3 mm interval. Dose reduction was employed with automated exposure control. COMPARISON:05/15/2022 CT abdomen and pelvis FINDINGS: Exam quality: This examination is limited for the evaluation of solid organs and vascular structures due to the lack of intravenous contrast. Lower chest: Mild bibasilar atelectasis without evidence of pleural effusion or focal consolidation. The heart is normal in size without evidence of pericardial effusion. The distal esophagus is unremarkable. Liver: The liver is normal in size without evidence of focal liver lesion. Biliary tree: Intrahepatic and extrahepatic ducts are nondilated. Gallbladder: The gallbladder is nondistended and without evidence of radiopaque stones. Pancreas: The pancreas appears unremarkable without evidence of ductal dilatation or mass. Spleen: The spleen is enlarged measuring 14 cm in length. Adrenals: Bilateral adrenal glands appear normal. Kidneys: The bilateral kidneys are normal in size. There are two 3 mm nonobstructing calculi in the superior pole of the right kidney. No evidence of hydroureteronephrosis or ureterolithiasis. Bladder: The bladder is decompressed limiting evaluation. Pelvic organs/viscera: No mass identified Bowel: The stomach is unremarkable. Questionable circumferential wall thickening of the rectum. Otherwise the visualized bowel is unremarkable without evidence of wall thickening or dilatation. Retroperitoneal/mesenteric lymphadenopathy: There is no free fluid, loculated fluid collection, or free air. No evidence of abdominal pelvic lymphadenopathy. Aorta: There is no aneurysmal dilatation of the abdominal aorta. Moderate atherosclerotic calcifications of the abdominal aorta and its branches. Abdominal wall: Fat-containing left inguinal hernia. Bones: Moderate multilevel discogenic degenerative changes. Stable retrolisthesis at L2-L3. Impression: Questionable circumferential wall thickening of the rectum, please correlate with clinical concern for colitis. Further evaluation with direct visualization may be obtained as indicated. Splenomegaly. Nonobstructing right renal calculi. Report Dictated on Electronically Signed By: Ryan White Electronically Signed Date/Time: 12/22/2022 8:01 PM EST @ISMA@ IMPRESSION / RECOMMENDATIONS: 1. Hypertension 2. Hypothyroid 3. Anxiety 4. Chronic back pain 5. Diabetes 6. 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 Alcohol abuse: Patient reports he has been sober since 12/16/2022 9. Right upper quadrant abdominal pain: Patient reports he was supposed to have a cholecystectomy on 01/05/2023 -General surgery following and reports that they will consider cholecystectomy if patient's overall clinical condition improves within the next couple days 10. Abnormal imaging: CT scan reports questionable circumferential wall thickening of the rectum. Patient reports he had a colonoscopy about 8 years ago that was normal to the best of his knowledge. Patient denies any rectal bleeding. Patient does have intermittent diarrhea. Diarrhea has been worse over the past few days. -Stool studies -Patient will need a colonoscopy but this can likely be done as an outpatient after cholecystectomy GI will follow peripherally in case something arises related to liver that we can help with. Please feel free to contact us if you think we can be of any assistance. (Comment: Please note this report has been produced using speech recognition software and may contain errors related to that system including errors in grammar, punctuation, and spelling, as well as words and phrases that may be inappropriate. If there are any questions or concerns please feel free to contact the dictating provider for clarification.) [employer] Phone: 12-23-2022 Consult note Associated Order (s): Inpatient consult to Gastroenterology Images from the original note were not included. GI CONSULTATION Patient: Woody Ni : 1960 Primary Care Physician: Jani Quezada Inpatient consult to Gastroenterology Consult performed by: Ana Callaway MD Consult ordered by: Kacie Benz DO REASON FOR CONSULTATION: Nausea and vomiting, thickening in the rectum HISTORY OF PRESENT ILLNESS: Woody Ni is a 62 y.o. male with PMH below who presented to the ER complaining of abdominal pain and nausea/vomiting. Patient reports for about the last 9 months he has had issues with intermittent right upper quadrant pain that radiates to the back. This is often associated with some nausea and occasional vomiting. Exacerbated by food. Patient reports this started a few days ago the pain significantly worsened and then the nausea and vomiting progressed and he could not tolerate any oral intake. Patient does report sometimes massaging the area improves the pain but does never go away completely. No overt bleeding. Patient reports that he was scheduled to have a cholecystectomy with Dr. Fang on 01/05/2023. In the ER labs showed: Sodium 124, potassium 5.1, BUN 46, creatinine 6.62, alkaline phosphatase 59, AST 205, ALT 214, total bilirubin 1, normal lipase, WBC 49, hemoglobin 12.3, platelets 76. CT abdomen/pelvis shows: Questionable circumferential wall thickening of the rectum. Splenomegaly. Nonobstructing right renal calculi. Patient admitted for further evaluation and management. PAST MEDICAL HISTORY: Past Medical History: Diagnosis Date Anxiety Back pain Cirrhosis (CMS/HCC) (HCC) Diabetes mellitus (HCC) Gout Hepatitis C Hypertension Hypothyroidism PAST SURGICAL HISTORY: Past Surgical History: Procedure Laterality Date BACK SURGERY LAMINECTOMY WISDOM TOOTH EXTRACTION FAMILY HISTORY: Family History Problem Relation Name Age of Onset Depression Mother Depression Maternal Grandmother SOCIAL HISTORY: TOBACCO: reports that he has quit smoking. His smoking use included cigars. He has quit using smokeless tobacco. ETOH: reports current alcohol use of about 21.0 standard drinks per week. DRUGS: reports current drug use. Drug: Marijuana. Medications: Prior to Admission medications Medication Sig Start Date End Date Taking? Authorizing Provider acetaminophen (Tylenol) 325 MG tablet every 4 hours. Historical Provider, albuterol (2.5 MG/3ML) 0.083% nebulizer solution Inhale 2.5 mg. Historical Provider, albuterol 108 (90 Base) MCG/ACT inhaler INHALE TWO PUFFS BY MOUTH FOUR TIMES DAILY 11/09/19 Historical Provider, alendronate (Fosamax) 70 MG tablet Take 70 mg by mouth once a week. 05/19/17 Historical Provider, amLODIPine (Norvasc) 2.5 MG tablet Take 2.5 mg by mouth in the morning. 05/27/17 Historical Provider, Bioflavonoid Products (Alana-C) tablet Every 24 hours. Historical Provider, clotrimazole-betamethasone (Lotrisone) cream 03/31/17 Historical Provider, colchicine 0.6 MG tablet Take 0.6 mg by mouth in the morning and 0.6 mg at noon and 0.6 mg in the evening. 05/16/17 Historical Provider, Cyanocobalamin (Vitamin B-12) 5000 MCG tablet dispersible every 12 hours. Historical Provider, dicyclomine (Bentyl) 20 MG tablet Take 1 tablet (20 mg) by mouth in the morning and 1 tablet (20 mg) at noon and 1 tablet (20 mg) in the evening. Take before meals. 11/07/22 11/07/23 Beryl Holder PA-C fluticasone (Flonase) 50 MCG/ACT nasal spray Administer 1 spray into affected nostril(s). 04/27/17 Historical Provider, folic acid (Folvite) 1 MG tablet TAKE 1 TABLET BY MOUTH DAILY 06/06/22 06/06/23 Nicolas Qiu furosemide (Lasix) 20 MG tablet Take 20 mg by mouth. 05/18/17 Historical Provider, ipratropium (Atrovent) 0.02 % nebulizer solution 05/04/17 Historical Provider, ketoconazole (NIZOral) 2 % shampoo 11/18/19 Historical Provider, levothyroxine (Synthroid, Levoxyl) 50 MCG tablet TAKE 1 TABLET BY MOUTH DAILY 06/06/22 06/06/23 Nicolas Qiu levothyroxine (Synthroid, Levoxyl) 75 MCG tablet Every 24 hours. Historical Provider, lidocaine (Xylocaine) 2 % solution 11/18/19 Historical Provider, lidocaine (Xylocaine) 5 % ointment every 8 hours. Historical Provider, loperamide (Imodium A-D) 2 MG tablet every 6 hours. Historical Provider, loratadine (Claritin) 10 MG tablet Every 24 hours. Historical Provider, metFORMIN (Glucophage) 500 MG tablet Take 1,000 mg by mouth daily (with breakfast). 05/21/17 Historical Provider, niacin 100 MG tablet Every 24 hours. Historical Provider, olmesartan (BENIcar) 40 MG tablet Take 40 mg by mouth daily. 10/14/22 Historical Provider, ondansetron ODT (Zofran-ODT) [address] 4-8 mg under the tongue. 05/15/22 Historical Provider, oxyCODONE (Roxicodone) 10 MG immediate release tablet Take 10 mg by mouth in the morning and 10 mg at noon and 10 mg in the evening and 10 mg before bedtime. 05/29/17 Historical Provider, pantoprazole (ProtoNix) 40 MG EC tablet Take 40 mg by mouth daily. Historical Provider, potassium chloride ER (Micro-K) 10 MEQ ER capsule Take 10 mEq by mouth in the morning. 03/30/17 Historical Provider, pravastatin (Pravachol) 40 MG tablet Take 40 mg by mouth in the morning. 04/30/17 Historical Provider, predniSONE (Deltasone) 20 MG tablet TAKE ONE TABLET BY MOUTH TWICE DAILY FOR 5 DAYS 10/27/22 Historical Provider, tamsulosin (Flomax) 0.4 MG 24 hr capsule Take 0.4 mg by mouth daily. 01/27/22 Historical Provider, thiamine (Vitamin B-1) 100 MG tablet TAKE 1 TABLET BY MOUTH DAILY Patient not taking: Reported on 11/07/2022 06/06/22 12/22/22 Nicolas Kangkrzysztof @MEDCMED@ ALLERGIES: Allergies Allergen Reactions Allopurinol Other Breaks out in blisters Penicillin G Swelling REVIEW OF SYSTEMS: No fever, chills, or sweats. Normal appetite and weight. No GRANADOS, visual disturbance, eye pain, jaundice, sore throat or mouth ulcers. No skin rash or itching. No CP, SOB, TABOR, cough or wheeze. No urinary frequency, urgency, hematuria, or dysuria. No myalgia, arthralgia, or joint swelling. No weakness, numbness, or confusion. GI per HPI. No polyuria, polydipsia, heat or cold intolerance. PHYSICAL EXAM: VS: BP 114/80 (BP Location: Right arm, Patient Position: Sitting) Pulse 96 Temp 36.3 C (97.4 F) (Temporal) Resp 18 Ht 5' 10" (1.778 m) Wt 177 lb 7.5 oz (80.5 kg) SpO2 99% BMI 25.46 kg/m Body mass index is 25.46 kg/m . GENERAL: Pleasant and NAD. HEENT: NCAT, PERRLA, EOMI, Scleral anicteric. Oropharhynx clear with no erythema or exudate. Neck supple, no cervical LAD or thyromegaly. CV: RRR, NL S1/S2, no murmurs. Distal pulses palpable and equal b/l. LUNGS: CTA b/l. Normal percussion and palpation. No W/R/R. Abdomen: + BS, soft, + TTP right upper quadrant region, non-distended. No hepatosplenomegaly. No mass felt. No rebound or guarding. No hernia. Extremities: No C/C/E. No muscle atrophy. Skin: No skin lesion or breakdown. Lymph: No cervical or supraclavicular LAD. Musculoskeletal: Strength 5/5 in all exts. No joint tenderness or effusions in LEs. Neurologic: A&O x 3, CN II-XII grossly intact. No asterixis. Non-focal. Psych: Normal affect and speech. LABS AND IMAGING: Recent blood work and relevant radiologic and endoscopic studies were reviewed and discussed with the patient. CBC: Recent Labs 12/22/22184412/23/22 0338 WBC 4.9 3.1* HGB 12.3* 11.3* HCT 35.8* 33.8* PLT 76* 56* HEPATIC: Recent Labs 12/22/221844 AST 205* ALT 214* BILITOT 1.0 ALKPHOS 59 LIPASE/AMYLASE: Recent Labs 12/22/221844 LIPASE 111 LACTATE: No lab exists for component: LACTA BNP: No results for input(s): BNP in the last 72 hours. INR: No results for input(s): INR in the last 72 hours. @RISRSLT@ @IMAGES@ CT abdomen pelvis wo IV contrast Narrative: Patient Name: WOODY NI : 1960 Exam Date/Time: 12/22/2022 19:41 Procedure: CT ABDOMEN PELVIS WO IV CONTRAST Ordering Provider: MARIN MATTHEW Reason For Exam: Nausea/vomiting CT ABDOMEN AND PELVIS WITHOUT IV CONTRAST CLINICAL INDICATION: Nausea and vomiting TECHNIQUE: Multidetector spiral transaxial sequence was performed through the abdomen and pelvis. Images were reconstructed at 3 mm slice width at 3 mm interval. Dose reduction was employed with automated exposure control. COMPARISON:05/15/2022 CT abdomen and pelvis FINDINGS: Exam quality: This examination is limited for the evaluation of solid organs and vascular structures due to the lack of intravenous contrast. Lower chest: Mild bibasilar atelectasis without evidence of pleural effusion or focal consolidation. The heart is normal in size without evidence of pericardial effusion. The distal esophagus is unremarkable. Liver: The liver is normal in size without evidence of focal liver lesion. Biliary tree: Intrahepatic and extrahepatic ducts are nondilated. Gallbladder: The gallbladder is nondistended and without evidence of radiopaque stones. Pancreas: The pancreas appears unremarkable without evidence of ductal dilatation or mass. Spleen: The spleen is enlarged measuring 14 cm in length. Adrenals: Bilateral adrenal glands appear normal. Kidneys: The bilateral kidneys are normal in size. There are two 3 mm nonobstructing calculi in the superior pole of the right kidney. No evidence of hydroureteronephrosis or ureterolithiasis. Bladder: The bladder is decompressed limiting evaluation. Pelvic organs/viscera: No mass identified Bowel: The stomach is unremarkable. Questionable circumferential wall thickening of the rectum. Otherwise the visualized bowel is unremarkable without evidence of wall thickening or dilatation. Retroperitoneal/mesenteric lymphadenopathy: There is no free fluid, loculated fluid collection, or free air. No evidence of abdominal pelvic lymphadenopathy. Aorta: There is no aneurysmal dilatation of the abdominal aorta. Moderate atherosclerotic calcifications of the abdominal aorta and its branches. Abdominal wall: Fat-containing left inguinal hernia. Bones: Moderate multilevel discogenic degenerative changes. Stable retrolisthesis at L2-L3. Impression: Questionable circumferential wall thickening of the rectum, please correlate with clinical concern for colitis. Further evaluation with direct visualization may be obtained as indicated. Splenomegaly. Nonobstructing right renal calculi. Report Dictated on Electronically Signed By: Ryan White Electronically Signed Date/Time: 12/22/2022 8:01 PM EST @ISMA@ IMPRESSION / RECOMMENDATIONS: 1. Hypertension 2. Hypothyroid 3. Anxiety 4. Chronic back pain 5. Diabetes 6. 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 Alcohol abuse: Patient reports he has been sober since 12/16/2022 9. Right upper quadrant abdominal pain: Patient reports he was supposed to have a cholecystectomy on 01/05/2023 -General surgery following and reports that they will consider cholecystectomy if patient's overall clinical condition improves within the next couple days 10. Abnormal imaging: CT scan reports questionable circumferential wall thickening of the rectum. Patient reports he had a colonoscopy about 8 years ago that was normal to the best of his knowledge. Patient denies any rectal bleeding. Patient does have intermittent diarrhea. Diarrhea has been worse over the past few days. -Stool studies -Patient will need a colonoscopy but this can likely be done as an outpatient after cholecystectomy GI will follow peripherally in case something arises related to liver that we can help with. Please feel free to contact us if you think we can be of any assistance. (Comment: Please note this report has been produced using speech recognition software and may contain errors related to that system including errors in grammar, punctuation, and spelling, as well as words and phrases that may be inappropriate. If there are any questions or concerns please feel free to contact the dictating provider for clarification.) Associated Order(s): IP CONSULT TO GENERAL SURGERY Images from the original note were not included. Attending Attestation [facility] - Surgery [facility] Physicians Surgery Patient Name: Woody Ni Date: 12/23/22 Patient seen and examined. Presents with nausea, emesis and inability to tolerate p.o. Upon presentation he was found to have have DENNYS with creatinine greater than 6. He denies history of kidney issues. He has had this intermittent nausea and emesis for several months. He was seen by Dr. Fang in October and scheduled for surgery in November, this was subsequently rescheduled to January 05. Since admission his nausea and abdominal pain have slightly improved. He is tolerating clear liquid diet. Exam: Abdomen: Soft, mildly tender to palpation in the right upper quadrant nondistended. Assessment and Plan: 62 y.o. male with nausea and emesis Labs, notes and imaging reviewed CT scan and prior ultrasound demonstrate gallbladder wall thickening with gallbladder sludge. Normal common bile duct. LFTs slightly elevated this admission. DENNYS with creatinine greater than 6 upon presentation, slowly improving with IV fluids, creatinine 5.24 today. Continue gentle IV fluid resuscitation for acute kidney injury. We will advance diet as tolerated. If the patient's acute kidney injury resolves and the patient's abdominal pain improves, would recommend that the keep his appointment on January 05 for laparoscopic cholecystectomy outpatient with Dr. Fang. If the patient's acute kidney injury resolves and his pain does not improve, would recommend surgery this admission. We will continue to follow with serial exams Discussed with patient and I personally supervised my resident in the evaluation and management of Woody Ni in the development of a treatment plan for this patient. I personally interviewed the patient and performed an individual physical examination. In addition, I discussed the patient's condition and treatment options with them. I have also reviewed and agree with the past medical, family and social history and care plan unless otherwise noted. All of the patient's questions were answered. moderate medical decision making and case complexity with 60 minute total care time including chart review, care coordination and face to face encounter was spent discussing/counseling the patient regarding the care plan for this patient. The patient was seen and examined independently and relevant data reviewed by myself. A full chart review was performed. Colin Sánchez MD General Surgery Pager #[phone] Perfect Serve: Colin Sánchez 4:56 PM 12/23/2022 Department of General Surgery Consult PATIENT NAME: Woody Ni DATE OF : 1960 ADMISSION DATE: 12/22/2022 5:48 PM TODAY'S DATE: 12/23/2022 Reason for Consult: Nausea, vomiting & RUQ abdominal pain HISTORY OF PRESENT ILLNESS: The patient is a 62 y.o. male who presents with nausea and vomiting. PMH significant for liver cirrhosis. Has had nausea and vomiting for the past couple of months that has worsened in the past couple of days and as a result he was unable to tolerate anything PO prior to arriving to the ED. Emesis was non-bloody and non-bilious. For the past couple of months had been eating food in small portions to avoid episodes of emesis. Also has had upper abdominal pain located in both RUQ and LUQ that increased in frequency within the past couple of days. Pain is stabbing and intermittent lasting for 15 sec or longer at a time occurring at various times throughout the day. Relieved with massaging RUQ and LUQ regions and sitting upright in bed. Usually patient does not have a bowel movement for a couple of days and then has a watery BM. Denies any blood in stool or dark colored stools. Thoroughly reviewed the patient's medical history, family history, social history and review of systems with the patient today in the office. Please see medical record for pertinent positives. Past Medical History: Anxiety Back pain Cirrhosis (CMS/HCC) (HCC) Diabetes mellitus (HCC) Gout Hepatitis C Hypertension Hypothyroidism Past Surgical History: BACK SURGERY LAMINECTOMY WISDOM TOOTH EXTRACTION Current Medications: Prior to Admission medications Medication Sig Start Date End Date Taking? Authorizing Provider acetaminophen (Tylenol) 325 MG tablet every 4 hours. Historical Provider, albuterol (2.5 MG/3ML) 0.083% nebulizer solution Inhale 2.5 mg. Historical Provider, albuterol 108 (90 Base) MCG/ACT inhaler INHALE TWO PUFFS BY MOUTH FOUR TIMES DAILY 11/09/19 Historical Provider, alendronate (Fosamax) 70 MG tablet Take 70 mg by mouth once a week. 05/19/17 Historical Provider, amLODIPine (Norvasc) 2.5 MG tablet Take 2.5 mg by mouth in the morning. 05/27/17 Historical Provider, Bioflavonoid Products (Alana-C) tablet Every 24 hours. Historical Provider, clotrimazole-betamethasone (Lotrisone) cream 03/31/17 Historical Provider, colchicine 0.6 MG tablet Take 0.6 mg by mouth in the morning and 0.6 mg at noon and 0.6 mg in the evening. 05/16/17 Historical Provider, Cyanocobalamin (Vitamin B-12) 5000 MCG tablet dispersible every 12 hours. Historical Provider, dicyclomine (Bentyl) 20 MG tablet Take 1 tablet (20 mg) by mouth in the morning and 1 tablet (20 mg) at noon and 1 tablet (20 mg) in the evening. Take before meals. 11/07/22 11/07/23 Beryl Holder PA-C fluticasone (Flonase) 50 MCG/ACT nasal spray Administer 1 spray into affected nostril(s). 04/27/17 Historical Provider, folic acid (Folvite) 1 MG tablet TAKE 1 TABLET BY MOUTH DAILY 06/06/22 06/06/23 Nicolas Qiu furosemide (Lasix) 20 MG tablet Take 20 mg by mouth. 05/18/17 Historical Provider, ipratropium (Atrovent) 0.02 % nebulizer solution 05/04/17 Historical Provider, ketoconazole (NIZOral) 2 % shampoo 11/18/19 Historical Provider, levothyroxine (Synthroid, Levoxyl) 50 MCG tablet TAKE 1 TABLET BY MOUTH DAILY 06/06/22 06/06/23 Nicolas Qiu levothyroxine (Synthroid, Levoxyl) 75 MCG tablet Every 24 hours. Historical Provider, lidocaine (Xylocaine) 2 % solution 11/18/19 Historical Provider, lidocaine (Xylocaine) 5 % ointment every 8 hours. Historical Provider, loperamide (Imodium A-D) 2 MG tablet every 6 hours. Historical Provider, loratadine (Claritin) 10 MG tablet Every 24 hours. Historical Provider, metFORMIN (Glucophage) 500 MG tablet Take 1,000 mg by mouth daily (with breakfast). 05/21/17 Historical Provider, niacin 100 MG tablet Every 24 hours. Historical Provider, olmesartan (BENIcar) 40 MG tablet Take 40 mg by mouth daily. 10/14/22 Historical Provider, ondansetron ODT (Zofran-ODT) [address] 4-8 mg under the tongue. 05/15/22 Historical Provider, oxyCODONE (Roxicodone) 10 MG immediate release tablet Take 10 mg by mouth in the morning and 10 mg at noon and 10 mg in the evening and 10 mg before bedtime. 05/29/17 Historical Provider, pantoprazole (ProtoNix) 40 MG EC tablet Take 40 mg by mouth daily. Historical Provider, potassium chloride ER (Micro-K) 10 MEQ ER capsule Take 10 mEq by mouth in the morning. 03/30/17 Historical Provider, pravastatin (Pravachol) 40 MG tablet Take 40 mg by mouth in the morning. 04/30/17 Historical Provider, predniSONE (Deltasone) 20 MG tablet TAKE ONE TABLET BY MOUTH TWICE DAILY FOR 5 DAYS 10/27/22 Historical Provider, tamsulosin (Flomax) 0.4 MG 24 hr capsule Take 0.4 mg by mouth daily. 01/27/22 Historical Provider, thiamine (Vitamin B-1) 100 MG tablet TAKE 1 TABLET BY MOUTH DAILY Patient not taking: Reported on 11/07/2022 06/06/22 12/22/22 Nicolas Qiu Allergies: Allopurinol and Penicillin g Social History: Social History Socioeconomic History Marital status: Spouse name: Not on file Number of children: Not on file Years of education: Not on file Highest education level: Not on file Occupational History Not on file Tobacco Use Smoking status: Former Types: Cigars Smokeless tobacco: Former Vaping Use Vaping Use: Never used Substance and Sexual Activity Alcohol use: Yes Alcohol/week: 21.0 standard drinks Types: 21 Cans of beer per week Comment: TALL BOY ARE DOUBLE BEERS 42 Drug use: Yes Types: Marijuana Sexual activity: Not on file Other Topics Concern Not on file Social History Narrative Not on file Social Determinants of Health Financial Resource Strain: Not on file Food Insecurity: Not on file Transportation Needs: No Transportation Needs Lack of Transportation (Medical): No Lack of Transportation (Non-Medical): No Physical Activity: Not on file Stress: Not on file Social Connections: Not on file Intimate Partner Violence: Not At Risk Fear of Current or Ex-Partner: No Emotionally Abused: No Physically Abused: No Sexually Abused: No Housing Stability: Unknown Unable to Pay for Housing in the Last Year: No Number of Places Lived in the Last Year: Not on file Unstable Housing in the Last Year: No Family History: Depression Mother Depression Maternal Grandmother REVIEW OF SYSTEMS: RESPIRATORY: SOB (chronic with no recent change) CARDIOVASCULAR: Negative for chest pains GASTROINTESTINAL: nausea and vomiting NEUROLOGICAL: Dizziness and lightheadedness prior to arriving in ED * All other ROS reviewed see HPI for pertinent positives and negatives. PHYSICAL EXAM: VITALS: BP 136/79 Pulse 75 Temp 36.2 C (97.2 F) (Temporal) Resp 16 Ht 5' 10" (1.778 m) Wt 177 lb 7.5 oz (80.5 kg) SpO2 100% BMI 25.46 kg/m 24HR INTAKE/OUTPUT: I/O last 3 completed shifts: In: 2813.3 (34.9 mL/kg) [I.V.:813.3 (10.1 mL/kg); IV Piggyback:1999] Out: - (0 mL/kg) Weight: 80.5 kg I/O this shift: In: 240 [P.O.:240] Out: - CONSTITUTIONAL: Appears well nourished. No distress ENT: Normocepalic,atraumatic, without obvious abnormality LUNGS: Resp effort easy and unlabored, breath sounds normal CARDIOVASCULAR: RRR, No murmur ABDOMEN: normoactive bowel sounds, soft, slightly distended, TTP in RUQ, LUQ and slightly in epigastric regions, no scars or hernia, no peritoneal signs, bilateral CVA tenderness MUSCULOSKELETAL: Normal range of motion, no edema NEUROLOGIC: Mental Status Exam: Level of Alertness: A&O x 3 Sensation globally intact PSYCHIATRIC: Oriented to person, place, and time. Speech is normal, mood appears normal SKIN: Warm, dry, and intact DATA: CBC: Recent Labs 12/22/22184412/23/22 0338 WBC 4.9 3.1* HGB 12.3* 11.3* HCT 35.8* 33.8* PLT 76* 56* BMP: Recent Labs 12/22/22184412/23/22 0338 NA 124* 128* K 5.1 4.3 CL 92* 103 CO2 22 18* BUN 46* 41* CREATININE 6.62* 5.24* GLUCOSE 101* 78 Hepatic: Recent Labs 12/22/221844 AST 205* ALT 214* BILITOT 1.0 ALKPHOS 59 Mag: No results for input(s): MG in the last 72 hours. Phos: No results for input(s): PHOS in the last 72 hours. INR: No results for input(s): INR in the last 72 hours. IMPRESSION/RECOMMENDATIONS: N/V 2/2 gallbladder sludge & wall thickening in the setting of liver cirrhosis Gallbladder US 09/09 showed wall thickening with tiny amount of of pericholecystic fluid - continue conservative management as per primary team - cont IV fluids for DENNYS - cont CLD - will consider cholecystectomy if patient's overall clinical condition improves within next couple of days Patient counseled on risks, benefits, and alternatives of treatment plan at length. Patient states an understanding and willingness to proceed with plan. Thank you for the opportunity to care for your patient, please don't hesitate to contact me for any questions or concerns you may have. Kacie Ybarra MD Personal Pager [phone] [facility] Surgery Pager [phone] during hours 7:30a-4:30p Thursday-Thursday After hours, please contact physician irrigation equipment mechanic. Associated Order(s): IP CONSULT TO NEPHROLOGY [facility] Consult Note Reason for Consult: DENNYS Requesting Physician: Kacie Benz DO Chief Complaint: Chief Complaint Patient presents with Vomiting History of Present Ilness: Woody Ni is a 62 y.o. male who presents to the emergency department nausea and vomiting. Patient states he does have cirrhosis from drinking. States he has not had an alcoholic beverage since December 16. Patient states he plans to have his gallbladder out within the next couple weeks. Given the patient having the underlying cirrhosis and possible ascites there concern giving the surgery could be somewhat complicated. Patient states he has had right upper quadrant right flank pain and back pain for several days now. States he has had intermittent nausea and vomiting for several weeks and months however it is gotten worse over the last few days. Patient denies any other associated symptoms. Denies chest pain shortness of breath, chest pain, dizziness, diarrhea. Nephrology is asked to see the patient for DENNYS. Patient currently has a serum creatinine level of 5.24, previously 6.60 with a baseline of about 1.0. Denies any history of renal issues. As mentioned above, patient has a history of nausea vomiting over the past couple months, but has gotten worse within the last week or so. He did quit drinking 8 days ago on December 16. He is a former smoker, quit in the 1980s sometime. He smoked between 1 to 2 packs daily for the better part of 20 years. He denies any NSAID use. Denies any issues with urine output, until a couple days ago. Stated he was straining last night to urinate and what he did void was dark in color. Past Medical History: Past Medical History: Diagnosis Date Anxiety Back pain Cirrhosis (CMS/HCC) (HCC) Diabetes mellitus (HCC) Gout Hepatitis C Hypertension Hypothyroidism Past Surgical History: Past Surgical History: Procedure Laterality Date BACK SURGERY LAMINECTOMY WISDOM TOOTH EXTRACTION Home Medications: No current facility-administered medications on file prior to encounter. Current Outpatient Medications on File Prior to Encounter Medication Sig Dispense Refill acetaminophen (Tylenol) 325 MG tablet every 4 hours. albuterol (2.5 MG/3ML) 0.083% nebulizer solution Inhale 2.5 mg. albuterol 108 (90 Base) MCG/ACT inhaler INHALE TWO PUFFS BY MOUTH FOUR TIMES DAILY alendronate (Fosamax) 70 MG tablet Take 70 mg by mouth once a week. amLODIPine (Norvasc) 2.5 MG tablet Take 2.5 mg by mouth in the morning. Bioflavonoid Products (Alana-C) tablet Every 24 hours. clotrimazole-betamethasone (Lotrisone) cream colchicine 0.6 MG tablet Take 0.6 mg by mouth in the morning and 0.6 mg at noon and 0.6 mg in the evening. Cyanocobalamin (Vitamin B-12) 5000 MCG tablet dispersible every 12 hours. dicyclomine (Bentyl) 20 MG tablet Take 1 tablet (20 mg) by mouth in the morning and 1 tablet (20 mg) at noon and 1 tablet (20 mg) in the evening. Take before meals. 90 tablet 1 fluticasone (Flonase) 50 MCG/ACT nasal spray Administer 1 spray into affected nostril(s). folic acid (Folvite) 1 MG tablet TAKE 1 TABLET BY MOUTH DAILY 30 tablet 0 furosemide (Lasix) 20 MG tablet Take 20 mg by mouth. ipratropium (Atrovent) 0.02 % nebulizer solution ketoconazole (NIZOral) 2 % shampoo levothyroxine (Synthroid, Levoxyl) 50 MCG tablet TAKE 1 TABLET BY MOUTH DAILY 30 tablet 0 levothyroxine (Synthroid, Levoxyl) 75 MCG tablet Every 24 hours. lidocaine (Xylocaine) 2 % solution lidocaine (Xylocaine) 5 % ointment every 8 hours. loperamide (Imodium A-D) 2 MG tablet every 6 hours. loratadine (Claritin) 10 MG tablet Every 24 hours. metFORMIN (Glucophage) 500 MG tablet Take 1,000 mg by mouth daily (with breakfast). niacin 100 MG tablet Every 24 hours. olmesartan (BENIcar) 40 MG tablet Take 40 mg by mouth daily. ondansetron ODT (Zofran-ODT) [address] 4-8 mg under the tongue. oxyCODONE (Roxicodone) 10 MG immediate release tablet Take 10 mg by mouth in the morning and 10 mg at noon and 10 mg in the evening and 10 mg before bedtime. pantoprazole (ProtoNix) 40 MG EC tablet Take 40 mg by mouth daily. potassium chloride ER (Micro-K) 10 MEQ ER capsule Take 10 mEq by mouth in the morning. pravastatin (Pravachol) 40 MG tablet Take 40 mg by mouth in the morning. predniSONE (Deltasone) 20 MG tablet TAKE ONE TABLET BY MOUTH TWICE DAILY FOR 5 DAYS tamsulosin (Flomax) 0.4 MG 24 hr capsule Take 0.4 mg by mouth daily. [DISCONTINUED] thiamine (Vitamin B-1) 100 MG tablet TAKE 1 TABLET BY MOUTH DAILY (Patient not taking: Reported on 11/07/2022) 30 tablet 0 Allergies: Allopurinol and Penicillin g Social History: Social History Socioeconomic History Marital status: Spouse name: Not on file Number of children: Not on file Years of education: Not on file Highest education level: Not on file Occupational History Not on file Tobacco Use Smoking status: Former Types: Cigars Smokeless tobacco: Former Vaping Use Vaping Use: Never used Substance and Sexual Activity Alcohol use: Yes Alcohol/week: 21.0 standard drinks Types: 21 Cans of beer per week Comment: TALL BOY ARE DOUBLE BEERS 42 Drug use: Yes Types: Marijuana Sexual activity: Not on file Other Topics Concern Not on file Social History Narrative Not on file Social Determinants of Health Financial Resource Strain: Not on file Food Insecurity: Not on file Transportation Needs: No Transportation Needs Lack of Transportation (Medical): No Lack of Transportation (Non-Medical): No Physical Activity: Not on file Stress: Not on file Social Connections: Not on file Intimate Partner Violence: Not At Risk Fear of Current or Ex-Partner: No Emotionally Abused: No Physically Abused: No Sexually Abused: No Housing Stability: Unknown Unable to Pay for Housing in the Last Year: No Number of Places Lived in the Last Year: Not on file Unstable Housing in the Last Year: No Family History: Family History Problem Relation Name Age of Onset Depression Mother Depression Maternal Grandmother Review of Systems: Pertinent positives stated above in HPI. All other systems were reviewed and were negative. Physical exam: Constitutional: Vitals: 12/23/22 0113 12/23/22 0449 12/23/22 0704 12/23/22 0839 BP: 116/76 136/79 BP Location: Right arm Patient Position: Lying Pulse: 84 75 Resp: 18 16 Temp: 36.7 C (98 F) 36.2 C (97.2 F) TempSrc: Temporal Temporal SpO2: 100% 100% Weight: 80.5 kg (177 lb 7.5 oz) Height: 1.778 m (5' 10") 1.778 m (5' 10") CURRENT TEMPERATURE: Temp: 36.2 C (97.2 F) MAXIMUM TEMPERATURE OVER 24HRS: Temp (24hrs), Av.6 C (97.9 F), Min:36.2 C (97.2 F), Max:36.8 C (98.3 F) CURRENT PULSE: Heart Rate: 75 CURRENT BLOOD PRESSURE: BP: 136/79 24HR BLOOD PRESSURE RANGE: Systolic (24hrs), Av , Min:106 , Max:152 ; Diastolic (24hrs), Av, Min:74, Max:84 24HR INTAKE/OUTPUT: Intake/Output Summary (Last 24 hours) at 12/23/2022 1056 Last data filed at 12/23/2022 0852 Gross per 24 hour Intake 3053.33 ml Output -- Net 3053.33 ml Physical Exam: Appearance: NAD, awake, alert, cooperative to exam Eyes: PERRLA, clear sclera ENT: hearing normal, no oral thrush, no erythema or exudate on hard or soft palate, tongue normal, dry mucus membranes Neck: supple, no JVD, no thyromegaly Respiratory: breathing unlabored, lungs CTA B/L anteriorly without w/r/r Cardiovascular: heart RRR without m/g/r, pedal pulses palpable Gastrointestinal: abdomen soft, non-tender, non-distended, normoactive bowel sounds. No masses or hernia. Musculoskeletal: normal muscle strength and tone, no edema of BLE Skin: warm and dry, no rash or wounds Neurologic: symmetric strength and sensation Psychiatric: alert and oriented to person/place/time, judgement and insight normal, memory intact, normal mood and range of affect Data: LIVER PROFILE: Recent Labs 12/22/221844 AST 205* ALT 214* BILITOT 1.0 ALKPHOS 59 CBC: Recent Labs 12/22/22184412/23/22337 WBC 4.9 3.1* RBC 3.66* 3.39* HGB 12.3* 11.3* HCT 35.8* 33.8* MCV 97.8 99.5* RDW 11.9 12.9 PLT 76* 56* BMP: Recent Labs 12/22/22184412/23/22337 NA 124* 128* K 5.1 4.3 CL 92* 103 CO2 22 18* BUN 46* 41* CREATININE 6.62* 5.24* BNP: No results for input(s): BNP in the last 72 hours. ABGs: No results found for: PH, PCO2, PO2, HCO3, O2SAT Nephro Labs: Recent Labs 12/22/221932 COLORU Yellow CLARITYU Clear GLUCOSEU Normal BLOODU 0.03* UROBILINOGEN Normal Imaging: reviewed Assessment: DENNYS/ATN 2/2 severe volume depletion from poor p.o. intake in the setting of chronic nausea vomiting in the setting of losartan and diuresis 2. Acute hyponatremia secondary to DENNYS with impaired free water clearance + poor solute intake 3. Acute NAGMA secondary to IVF normal saline + DENNYS 4. Intractable nausea and vomiting 5. Chronic cholecystitis 6. Alcohol abuse Plan: -Scr currently 5.24, bl~1.0, non-oliguric, BP stable -Scr may worsen tomorrow 2/2 losartan given -No acute need for LIQUEFIER at this time but can still be considered high risk -Volume status: hypovolemic, c/w IVF at this time, change to LR as becoming acidotic -Hold losartan and lasix -DENNYS workup ordered, urine lytes unreliable in the setting of diuresis -PVR negative for AUR -Na already improving, trend -Avoid nephrotoxins and contrast dye -Dose all meds per current eGFR -All other care per primary -We will follow closely with you Thank you for the consult and the opportunity to participate in the care of this patient. Please do not hesitate to call with any questions or concerns. Ophelia Okeefe APRN, ANIMAL CONTROL SPECIALIST [facility], [facility] [phone] office Seen and examined. Agree with above A and P. Severe DENNYS 2/2 ATN, volume depletion. Responding to IVF. Change IVF to LR to address worsening acidosis from NS. No LIQUEFIER indications, will follow. documented in this encounter [facility] 12-23-2022 Consult note Associated Order (s): IP CONSULT TO GENERAL SURGERY Images from the original note were not included. Attending Attestation [facility] - Surgery [facility] Physicians Surgery Patient Name: Woody Ni Date: 12/23/22 Patient seen and examined. Presents with nausea, emesis and inability to tolerate p.o. Upon presentation he was found to have have DENNYS with creatinine greater than 6. He denies history of kidney issues. He has had this intermittent nausea and emesis for several months. He was seen by Dr. Fang in October and scheduled for surgery in November, this was subsequently rescheduled to January 05. Since admission his nausea and abdominal pain have slightly improved. He is tolerating clear liquid diet. Exam: Abdomen: Soft, mildly tender to palpation in the right upper quadrant nondistended. Assessment and Plan: 62 y.o. male with nausea and emesis Labs, notes and imaging reviewed CT scan and prior ultrasound demonstrate gallbladder wall thickening with gallbladder sludge. Normal common bile duct. LFTs slightly elevated this admission. DENNYS with creatinine greater than 6 upon presentation, slowly improving with IV fluids, creatinine 5.24 today. Continue gentle IV fluid resuscitation for acute kidney injury. We will advance diet as tolerated. If the patient's acute kidney injury resolves and the patient's abdominal pain improves, would recommend that the keep his appointment on January 05 for laparoscopic cholecystectomy outpatient with Dr. Fang. If the patient's acute kidney injury resolves and his pain does not improve, would recommend surgery this admission. We will continue to follow with serial exams Discussed with patient and I personally supervised my resident in the evaluation and management of Woody Ni in the development of a treatment plan for this patient. I personally interviewed the patient and performed an individual physical examination. In addition, I discussed the patient's condition and treatment options with them. I have also reviewed and agree with the past medical, family and social history and care plan unless otherwise noted. All of the patient's questions were answered. moderate medical decision making and case complexity with 60 minute total care time including chart review, care coordination and face to face encounter was spent discussing/counseling the patient regarding the care plan for this patient. The patient was seen and examined independently and relevant data reviewed by myself. A full chart review was performed. Colin Sánchez MD General Surgery Pager #[phone] Perfect Serve: Colin Sánchez 4:56 PM 12/23/2022 Department of General Surgery Consult PATIENT NAME: Woody Ni DATE OF : 1960 ADMISSION DATE: 12/22/2022 5:48 PM TODAY'S DATE: 12/23/2022 Reason for Consult: Nausea, vomiting & RUQ abdominal pain HISTORY OF PRESENT ILLNESS: The patient is a 62 y.o. male who presents with nausea and vomiting. PMH significant for liver cirrhosis. Has had nausea and vomiting for the past couple of months that has worsened in the past couple of days and as a result he was unable to tolerate anything PO prior to arriving to the ED. Emesis was non-bloody and non-bilious. For the past couple of months had been eating food in small portions to avoid episodes of emesis. Also has had upper abdominal pain located in both RUQ and LUQ that increased in frequency within the past couple of days. Pain is stabbing and intermittent lasting for 15 sec or longer at a time occurring at various times throughout the day. Relieved with massaging RUQ and LUQ regions and sitting upright in bed. Usually patient does not have a bowel movement for a couple of days and then has a watery BM. Denies any blood in stool or dark colored stools. Thoroughly reviewed the patient's medical history, family history, social history and review of systems with the patient today in the office. Please see medical record for pertinent positives. Past Medical History: Anxiety Back pain Cirrhosis (CMS/HCC) (HCC) Diabetes mellitus (HCC) Gout Hepatitis C Hypertension Hypothyroidism Past Surgical History: BACK SURGERY LAMINECTOMY WISDOM TOOTH EXTRACTION Current Medications: Prior to Admission medications Medication Sig Start Date End Date Taking? Authorizing Provider acetaminophen (Tylenol) 325 MG tablet every 4 hours. Historical Provider, albuterol (2.5 MG/3ML) 0.083% nebulizer solution Inhale 2.5 mg. Historical Provider, albuterol 108 (90 Base) MCG/ACT inhaler INHALE TWO PUFFS BY MOUTH FOUR TIMES DAILY 11/09/19 Historical Provider, alendronate (Fosamax) 70 MG tablet Take 70 mg by mouth once a week. 05/19/17 Historical Provider, amLODIPine (Norvasc) 2.5 MG tablet Take 2.5 mg by mouth in the morning. 05/27/17 Historical Provider, Bioflavonoid Products (Alana-C) tablet Every 24 hours. Historical Provider, clotrimazole-betamethasone (Lotrisone) cream 03/31/17 Historical Provider, colchicine 0.6 MG tablet Take 0.6 mg by mouth in the morning and 0.6 mg at noon and 0.6 mg in the evening. 05/16/17 Historical Provider, Cyanocobalamin (Vitamin B-12) 5000 MCG tablet dispersible every 12 hours. Historical Provider, dicyclomine (Bentyl) 20 MG tablet Take 1 tablet (20 mg) by mouth in the morning and 1 tablet (20 mg) at noon and 1 tablet (20 mg) in the evening. Take before meals. 11/07/22 11/07/23 Beryl Holder PA-C fluticasone (Flonase) 50 MCG/ACT nasal spray Administer 1 spray into affected nostril(s). 04/27/17 Historical Provider, folic acid (Folvite) 1 MG tablet TAKE 1 TABLET BY MOUTH DAILY 06/06/22 06/06/23 Nicolas Qiu furosemide (Lasix) 20 MG tablet Take 20 mg by mouth. 05/18/17 Historical Provider, ipratropium (Atrovent) 0.02 % nebulizer solution 05/04/17 Historical Provider, ketoconazole (NIZOral) 2 % shampoo 11/18/19 Historical Provider, levothyroxine (Synthroid, Levoxyl) 50 MCG tablet TAKE 1 TABLET BY MOUTH DAILY 06/06/22 06/06/23 Nicolas Qiu levothyroxine (Synthroid, Levoxyl) 75 MCG tablet Every 24 hours. Historical Provider, lidocaine (Xylocaine) 2 % solution 11/18/19 Historical Provider, lidocaine (Xylocaine) 5 % ointment every 8 hours. Historical Provider, loperamide (Imodium A-D) 2 MG tablet every 6 hours. Historical Provider, loratadine (Claritin) 10 MG tablet Every 24 hours. Historical Provider, metFORMIN (Glucophage) 500 MG tablet Take 1,000 mg by mouth daily (with breakfast). 05/21/17 Historical Provider, niacin 100 MG tablet Every 24 hours. Historical Provider, olmesartan (BENIcar) 40 MG tablet Take 40 mg by mouth daily. 10/14/22 Historical Provider, ondansetron ODT (Zofran-ODT) [address] 4-8 mg under the tongue. 05/15/22 Historical Provider, oxyCODONE (Roxicodone) 10 MG immediate release tablet Take 10 mg by mouth in the morning and 10 mg at noon and 10 mg in the evening and 10 mg before bedtime. 05/29/17 Historical Provider, pantoprazole (ProtoNix) 40 MG EC tablet Take 40 mg by mouth daily. Historical Provider, potassium chloride ER (Micro-K) 10 MEQ ER capsule Take 10 mEq by mouth in the morning. 03/30/17 Historical Provider, pravastatin (Pravachol) 40 MG tablet Take 40 mg by mouth in the morning. 04/30/17 Historical Provider, predniSONE (Deltasone) 20 MG tablet TAKE ONE TABLET BY MOUTH TWICE DAILY FOR 5 DAYS 10/27/22 Historical Provider, tamsulosin (Flomax) 0.4 MG 24 hr capsule Take 0.4 mg by mouth daily. 01/27/22 Historical Provider, thiamine (Vitamin B-1) 100 MG tablet TAKE 1 TABLET BY MOUTH DAILY Patient not taking: Reported on 11/07/2022 06/06/22 12/22/22 Nicolas Qiu Allergies: Allopurinol and Penicillin g Social History: Social History Socioeconomic History Marital status: Spouse name: Not on file Number of children: Not on file Years of education: Not on file Highest education level: Not on file Occupational History Not on file Tobacco Use Smoking status: Former Types: Cigars Smokeless tobacco: Former Vaping Use Vaping Use: Never used Substance and Sexual Activity Alcohol use: Yes Alcohol/week: 21.0 standard drinks Types: 21 Cans of beer per week Comment: TALL BOY ARE DOUBLE BEERS 42 Drug use: Yes Types: Marijuana Sexual activity: Not on file Other Topics Concern Not on file Social History Narrative Not on file Social Determinants of Health Financial Resource Strain: Not on file Food Insecurity: Not on file Transportation Needs: No Transportation Needs Lack of Transportation (Medical): No Lack of Transportation (Non-Medical): No Physical Activity: Not on file Stress: Not on file Social Connections: Not on file Intimate Partner Violence: Not At Risk Fear of Current or Ex-Partner: No Emotionally Abused: No Physically Abused: No Sexually Abused: No Housing Stability: Unknown Unable to Pay for Housing in the Last Year: No Number of Places Lived in the Last Year: Not on file Unstable Housing in the Last Year: No Family History: Depression Mother Depression Maternal Grandmother REVIEW OF SYSTEMS: RESPIRATORY: SOB (chronic with no recent change) CARDIOVASCULAR: Negative for chest pains GASTROINTESTINAL: nausea and vomiting NEUROLOGICAL: Dizziness and lightheadedness prior to arriving in ED * All other ROS reviewed see HPI for pertinent positives and negatives. PHYSICAL EXAM: VITALS: BP 136/79 Pulse 75 Temp 36.2 C (97.2 F) (Temporal) Resp 16 Ht 5' 10" (1.778 m) Wt 177 lb 7.5 oz (80.5 kg) SpO2 100% BMI 25.46 kg/m 24HR INTAKE/OUTPUT: I/O last 3 completed shifts: In: 2813.3 (34.9 mL/kg) [I.V.:813.3 (10.1 mL/kg); IV Piggyback:1999] Out: - (0 mL/kg) Weight: 80.5 kg I/O this shift: In: 240 [P.O.:240] Out: - CONSTITUTIONAL: Appears well nourished. No distress ENT: Normocepalic,atraumatic, without obvious abnormality LUNGS: Resp effort easy and unlabored, breath sounds normal CARDIOVASCULAR: RRR, No murmur ABDOMEN: normoactive bowel sounds, soft, slightly distended, TTP in RUQ, LUQ and slightly in epigastric regions, no scars or hernia, no peritoneal signs, bilateral CVA tenderness MUSCULOSKELETAL: Normal range of motion, no edema NEUROLOGIC: Mental Status Exam: Level of Alertness: A&O x 3 Sensation globally intact PSYCHIATRIC: Oriented to person, place, and time. Speech is normal, mood appears normal SKIN: Warm, dry, and intact DATA: CBC: Recent Labs 12/22/22184412/23/22337 WBC 4.9 3.1* HGB 12.3* 11.3* HCT 35.8* 33.8* PLT 76* 56* BMP: Recent Labs 12/22/22184412/23/22337 NA 124* 128* K 5.1 4.3 CL 92* 103 CO2 22 18* BUN 46* 41* CREATININE 6.62* 5.24* GLUCOSE 101* 78 Hepatic: Recent Labs 12/22/221844 AST 205* ALT 214* BILITOT 1.0 ALKPHOS 59 Mag: No results for input(s): MG in the last 72 hours. Phos: No results for input(s): PHOS in the last 72 hours. INR: No results for input(s): INR in the last 72 hours. IMPRESSION/RECOMMENDATIONS: N/V 2/2 gallbladder sludge & wall thickening in the setting of liver cirrhosis Gallbladder US 09/09 showed wall thickening with tiny amount of of pericholecystic fluid - continue conservative management as per primary team - cont IV fluids for DENNYS - cont CLD - will consider cholecystectomy if patient's overall clinical condition improves within next couple of days Patient counseled on risks, benefits, and alternatives of treatment plan at length. Patient states an understanding and willingness to proceed with plan. Thank you for the opportunity to care for your patient, please don't hesitate to contact me for any questions or concerns you may have. Kacie Ybarra MD Personal Pager [phone] [facility] Surgery Pager [phone] during hours 7:30a-4:30p Thursday-Thursday After hours, please contact physician irrigation equipment mechanic. [facility] 12-23-2022 Consult note Associated Order (s): IP CONSULT TO NEPHROLOGY [facility] Consult Note Reason for Consult: DENNYS Requesting Physician: Kacie Benz DO Chief Complaint: Chief Complaint Patient presents with Vomiting History of Present Ilness: Woody Ni is a 62 y.o. male who presents to the emergency department nausea and vomiting. Patient states he does have cirrhosis from drinking. States he has not had an alcoholic beverage since December 16. Patient states he plans to have his gallbladder out within the next couple weeks. Given the patient having the underlying cirrhosis and possible ascites there concern giving the surgery could be somewhat complicated. Patient states he has had right upper quadrant right flank pain and back pain for several days now. States he has had intermittent nausea and vomiting for several weeks and months however it is gotten worse over the last few days. Patient denies any other associated symptoms. Denies chest pain shortness of breath, chest pain, dizziness, diarrhea. Nephrology is asked to see the patient for DENNYS. Patient currently has a serum creatinine level of 5.24, previously 6.60 with a baseline of about 1.0. Denies any history of renal issues. As mentioned above, patient has a history of nausea vomiting over the past couple months, but has gotten worse within the last week or so. He did quit drinking 8 days ago on December 16. He is a former smoker, quit in the 1980s sometime. He smoked between 1 to 2 packs daily for the better part of 20 years. He denies any NSAID use. Denies any issues with urine output, until a couple days ago. Stated he was straining last night to urinate and what he did void was dark in color. Past Medical History: Past Medical History: Diagnosis Date Anxiety Back pain Cirrhosis (CMS/HCC) (HCC) Diabetes mellitus (HCC) Gout Hepatitis C Hypertension Hypothyroidism Past Surgical History: Past Surgical History: Procedure Laterality Date BACK SURGERY LAMINECTOMY WISDOM TOOTH EXTRACTION Home Medications: No current facility-administered medications on file prior to encounter. Current Outpatient Medications on File Prior to Encounter Medication Sig Dispense Refill acetaminophen (Tylenol) 325 MG tablet every 4 hours. albuterol (2.5 MG/3ML) 0.083% nebulizer solution Inhale 2.5 mg. albuterol 108 (90 Base) MCG/ACT inhaler INHALE TWO PUFFS BY MOUTH FOUR TIMES DAILY alendronate (Fosamax) 70 MG tablet Take 70 mg by mouth once a week. amLODIPine (Norvasc) 2.5 MG tablet Take 2.5 mg by mouth in the morning. Bioflavonoid Products (Alana-C) tablet Every 24 hours. clotrimazole-betamethasone (Lotrisone) cream colchicine 0.6 MG tablet Take 0.6 mg by mouth in the morning and 0.6 mg at noon and 0.6 mg in the evening. Cyanocobalamin (Vitamin B-12) 5000 MCG tablet dispersible every 12 hours. dicyclomine (Bentyl) 20 MG tablet Take 1 tablet (20 mg) by mouth in the morning and 1 tablet (20 mg) at noon and 1 tablet (20 mg) in the evening. Take before meals. 90 tablet 1 fluticasone (Flonase) 50 MCG/ACT nasal spray Administer 1 spray into affected nostril(s). folic acid (Folvite) 1 MG tablet TAKE 1 TABLET BY MOUTH DAILY 30 tablet 0 furosemide (Lasix) 20 MG tablet Take 20 mg by mouth. ipratropium (Atrovent) 0.02 % nebulizer solution ketoconazole (NIZOral) 2 % shampoo levothyroxine (Synthroid, Levoxyl) 50 MCG tablet TAKE 1 TABLET BY MOUTH DAILY 30 tablet 0 levothyroxine (Synthroid, Levoxyl) 75 MCG tablet Every 24 hours. lidocaine (Xylocaine) 2 % solution lidocaine (Xylocaine) 5 % ointment every 8 hours. loperamide (Imodium A-D) 2 MG tablet every 6 hours. loratadine (Claritin) 10 MG tablet Every 24 hours. metFORMIN (Glucophage) 500 MG tablet Take 1,000 mg by mouth daily (with breakfast). niacin 100 MG tablet Every 24 hours. olmesartan (BENIcar) 40 MG tablet Take 40 mg by mouth daily. ondansetron ODT (Zofran-ODT) [address] 4-8 mg under the tongue. oxyCODONE (Roxicodone) 10 MG immediate release tablet Take 10 mg by mouth in the morning and 10 mg at noon and 10 mg in the evening and 10 mg before bedtime. pantoprazole (ProtoNix) 40 MG EC tablet Take 40 mg by mouth daily. potassium chloride ER (Micro-K) 10 MEQ ER capsule Take 10 mEq by mouth in the morning. pravastatin (Pravachol) 40 MG tablet Take 40 mg by mouth in the morning. predniSONE (Deltasone) 20 MG tablet TAKE ONE TABLET BY MOUTH TWICE DAILY FOR 5 DAYS tamsulosin (Flomax) 0.4 MG 24 hr capsule Take 0.4 mg by mouth daily. [DISCONTINUED] thiamine (Vitamin B-1) 100 MG tablet TAKE 1 TABLET BY MOUTH DAILY (Patient not taking: Reported on 11/07/2022) 30 tablet 0 Allergies: Allopurinol and Penicillin g Social History: Social History Socioeconomic History Marital status: Spouse name: Not on file Number of children: Not on file Years of education: Not on file Highest education level: Not on file Occupational History Not on file Tobacco Use Smoking status: Former Types: Cigars Smokeless tobacco: Former Vaping Use Vaping Use: Never used Substance and Sexual Activity Alcohol use: Yes Alcohol/week: 21.0 standard drinks Types: 21 Cans of beer per week Comment: TALL BOY ARE DOUBLE BEERS 42 Drug use: Yes Types: Marijuana Sexual activity: Not on file Other Topics Concern Not on file Social History Narrative Not on file Social Determinants of Health Financial Resource Strain: Not on file Food Insecurity: Not on file Transportation Needs: No Transportation Needs Lack of Transportation (Medical): No Lack of Transportation (Non-Medical): No Physical Activity: Not on file Stress: Not on file Social Connections: Not on file Intimate Partner Violence: Not At Risk Fear of Current or Ex-Partner: No Emotionally Abused: No Physically Abused: No Sexually Abused: No Housing Stability: Unknown Unable to Pay for Housing in the Last Year: No Number of Places Lived in the Last Year: Not on file Unstable Housing in the Last Year: No Family History: Family History Problem Relation Name Age of Onset Depression Mother Depression Maternal Grandmother Review of Systems: Pertinent positives stated above in HPI. All other systems were reviewed and were negative. Physical exam: Constitutional: Vitals: 12/23/22 0113 12/23/22 0449 12/23/22 0704 12/23/22 0839 BP: 116/76 136/79 BP Location: Right arm Patient Position: Lying Pulse: 84 75 Resp: 18 16 Temp: 36.7 C (98 F) 36.2 C (97.2 F) TempSrc: Temporal Temporal SpO2: 100% 100% Weight: 80.5 kg (177 lb 7.5 oz) Height: 1.778 m (5' 10") 1.778 m (5' 10") CURRENT TEMPERATURE: Temp: 36.2 C (97.2 F) MAXIMUM TEMPERATURE OVER 24HRS: Temp (24hrs), Av.6 C (97.9 F), Min:36.2 C (97.2 F), Max:36.8 C (98.3 F) CURRENT PULSE: Heart Rate: 75 CURRENT BLOOD PRESSURE: BP: 136/79 24HR BLOOD PRESSURE RANGE: Systolic (24hrs), Av , Min:106 , Max:152 ; Diastolic (24hrs), Av, Min:74, Max:84 24HR INTAKE/OUTPUT: Intake/Output Summary (Last 24 hours) at 12/23/2022 1056 Last data filed at 12/23/2022 0852 Gross per 24 hour Intake 3053.33 ml Output -- Net 3053.33 ml Physical Exam: Appearance: NAD, awake, alert, cooperative to exam Eyes: PERRLA, clear sclera ENT: hearing normal, no oral thrush, no erythema or exudate on hard or soft palate, tongue normal, dry mucus membranes Neck: supple, no JVD, no thyromegaly Respiratory: breathing unlabored, lungs CTA B/L anteriorly without w/r/r Cardiovascular: heart RRR without m/g/r, pedal pulses palpable Gastrointestinal: abdomen soft, non-tender, non-distended, normoactive bowel sounds. No masses or hernia. Musculoskeletal: normal muscle strength and tone, no edema of BLE Skin: warm and dry, no rash or wounds Neurologic: symmetric strength and sensation Psychiatric: alert and oriented to person/place/time, judgement and insight normal, memory intact, normal mood and range of affect Data: LIVER PROFILE: Recent Labs 12/22/221844 AST 205* ALT 214* BILITOT 1.0 ALKPHOS 59 CBC: Recent Labs 12/22/22184412/23/22 0338 WBC 4.9 3.1* RBC 3.66* 3.39* HGB 12.3* 11.3* HCT 35.8* 33.8* MCV 97.8 99.5* RDW 11.9 12.9 PLT 76* 56* BMP: Recent Labs 12/22/22184412/23/22 0338 NA 124* 128* K 5.1 4.3 CL 92* 103 CO2 22 18* BUN 46* 41* CREATININE 6.62* 5.24* BNP: No results for input(s): BNP in the last 72 hours. ABGs: No results found for: PH, PCO2, PO2, HCO3, O2SAT Nephro Labs: Recent Labs 12/22/22 1933 COLORU Yellow CLARITYU Clear GLUCOSEU Normal BLOODU 0.03* UROBILINOGEN Normal Imaging: reviewed Assessment: DENNYS/ATN 2/2 severe volume depletion from poor p.o. intake in the setting of chronic nausea vomiting in the setting of losartan and diuresis 2. Acute hyponatremia secondary to DENNYS with impaired free water clearance + poor solute intake 3. Acute NAGMA secondary to IVF normal saline + DENNYS 4. Intractable nausea and vomiting 5. Chronic cholecystitis 6. Alcohol abuse Plan: -Scr currently 5.24, bl~1.0, non-oliguric, BP stable -Scr may worsen tomorrow 2/2 losartan given -No acute need for LIQUEFIER at this time but can still be considered high risk -Volume status: hypovolemic, c/w IVF at this time, change to LR as becoming acidotic -Hold losartan and lasix -DENNYS workup ordered, urine lytes unreliable in the setting of diuresis -PVR negative for AUR -Na already improving, trend -Avoid nephrotoxins and contrast dye -Dose all meds per current eGFR -All other care per primary -We will follow closely with you Thank you for the consult and the opportunity to participate in the care of this patient. Please do not hesitate to call with any questions or concerns. Ophelia Okeefe APRN, ANIMAL CONTROL SPECIALIST [facility], [facility] [phone] office Seen and examined. Agree with above A and P. Severe DENNYS 2/2 ATN, volume depletion. Responding to IVF. Change IVF to LR to address worsening acidosis from NS. No LIQUEFIER indications, will follow. [facility] 12-23-2022 Note Formatting of this n ote might be different from the original. Care Managment Initial Assessment Date: 12/23/2022 Patient Name: Woody Ni : 1960 Patient Information Source of Information: Patient Cognition/Language: WFL - Within Functional Limits Permission given to speak with patient underwriting account representative/caregiver as indicated: Yes Confirmation of Payer with patient/family: Yes Payer Name: Medicare [place]: Yes Confirmation of Primary Care Physician: Confirmed PCP Name: Dr. Quezada Seen in last 2 years?: Yes Primary Caregiver: Self If assistance needed, confirmed caregiver ready, willing and able to care for patient at discharge: Confirmed with: Living Arrangements Current Residence: House Number of Floors 2 (Lives on main level) Number of Entry Steps: 2 Bed/Bath Levels: Facility: Facility Name: Plan to Return: Yes Lives with: Spouse/significant other Support Systems: Spouse/significant other Activities of Daily Living Ambulation: Independent Bathing/Dressing: Independent Elimination/Continence/Toileting: Independent Feeding: Independent Who Assists with Activities of Daily Living: Instrumental Activities of Daily Living Prescription Coverage: Yes Pharmacy Used: [facility] Medication Management: Independent Transportation/Shopping: Assistance Provider Transportation/Shopping Assistance Provider Name: Girlfriend Kingsley Transportation Mode: Needs Assistance with Transportation at Discharge: No Meal Preparation: Independent Laundry/Cleaning: Independent Finances/Bill Paying: Independent Communication: Independent Types of Care Services/Equipment Utilized Care Services: (N/A) Dialysis Type: NA Durable Medical Equipment: Cane, Walker, Wheelchair (standard or power) Patient's Goal/Discharge Plan Patient expects to be discharged to: Home with Home Care Discharge Planning Actions: Continue to follow Patient's Choice Rights and [employer] and Collaborative Relationships Disclosed as Indicated for Post-Acute Care: Yes Interdisciplinary Team Engagement: Social Work Referral for: Additional Information: Patient admitted with RUQ pain, elevated Cr. Nephrology, GI consulted and PT evaluation pending and OT recommending home therapy. Referral placed in [facility] to Home Care. Hattiefrienhomero Gillespie will provide transportation home. Alexandra Chaves RN [facility] 12-23-2022 Note Formatting of this n ote might be different from the original. Care Managment Initial Assessment Date: 12/23/2022 Patient Name: Woody Ni : 1960 Patient Information Source of Information: Patient Cognition/Language: WFL - Within Functional Limits Permission given to speak with patient underwriting account representative/caregiver as indicated: Yes Confirmation of Payer with patient/family: Yes Payer Name: Medicare : Yes Confirmation of Primary Care Physician: Confirmed PCP Name: Dr. Quezada Seen in last 2 years?: Yes Primary Caregiver: Self If assistance needed, confirmed caregiver ready, willing and able to care for patient at discharge: Confirmed with: Living Arrangements Current Residence: House Number of Floors 2 (Lives on main level) Number of Entry Steps: 2 Bed/Bath Levels: Facility: Facility Name: Plan to Return: Yes Lives with: Spouse/significant other Support Systems: Spouse/significant other Activities of Daily Living Ambulation: Independent Bathing/Dressing: Independent Elimination/Continence/Toileting: Independent Feeding: Independent Who Assists with Activities of Daily Living: Instrumental Activities of Daily Living Prescription Coverage: Yes Pharmacy Used: [facility] Medication Management: Independent Transportation/Shopping: Assistance Provider Transportation/Shopping Assistance Provider Name: Miguel Angel Gillespie Transportation Mode: Needs Assistance with Transportation at Discharge: No Meal Preparation: Independent Laundry/Cleaning: Independent Finances/Bill Paying: Independent Communication: Independent Types of Care Services/Equipment Utilized Care Services: (N/A) Dialysis Type: NA Durable Medical Equipment: Cane, Walker, Wheelchair (standard or power) Patient's Goal/Discharge Plan Patient expects to be discharged to: Home with Home Care Discharge Planning Actions: Continue to follow Patient's Choice Rights and [employer] and Collaborative Relationships Disclosed as Indicated for Post-Acute Care: Yes Interdisciplinary Team Engagement: Social Work Referral for: Additional Information: Patient admitted with RUQ pain, elevated Cr. Nephrology, GI consulted and PT evaluation pending and OT recommending home therapy. Referral placed in [facility] to Home Care. Hattiefrluz maria Gillespie will provide transportation home. Alexandra Chaves RN [facility] 12-23-2022 History and physical note Department of Family Medicine Attending History and Physical CHIEF COMPLAINT: n/v Reason for Admission: same with DENNYS History Obtained From: patient History of Present Illness Woody Ni is a 62 y.o. male who presents to the emergency department nausea and vomiting. Patient states he does have cirrhosis from drinking. States he has not had an alcoholic beverage since December 16. Patient states he plans to have his gallbladder out within the next couple weeks. Given the patient having the underlying cirrhosis and possible ascites there concern giving the surgery could be somewhat complicated. Patient states he has had right upper quadrant right flank pain and back pain for several days now. States he has had intermittent nausea and vomiting for several weeks and months however it is gotten worse over the last few days. Patient denies any other associated symptoms. Denies chest pain shortness of breath, chest pain, dizziness, diarrhea. He is still having some pain in the ruq on exam today. He is scheduled for surgery January [address] Walsh. His creatinine had bumped over 6nnow down to 5 today with fluids Past Medical History: Past Medical History: Diagnosis Date Anxiety Back pain Cirrhosis (CMS/HCC) (HCC) Diabetes mellitus (HCC) Gout Hepatitis C Hypertension Hypothyroidism Past Surgical History: Past Surgical History: Procedure Laterality Date BACK SURGERY LAMINECTOMY WISDOM TOOTH EXTRACTION Medications Prior to Admission: Medications Prior to Admission Medication Sig Dispense Refill Last Dose acetaminophen (Tylenol) 325 MG tablet every 4 hours. albuterol (2.5 MG/3ML) 0.083% nebulizer solution Inhale 2.5 mg. albuterol 108 (90 Base) MCG/ACT inhaler INHALE TWO PUFFS BY MOUTH FOUR TIMES DAILY alendronate (Fosamax) 70 MG tablet Take 70 mg by mouth once a week. amLODIPine (Norvasc) 2.5 MG tablet Take 2.5 mg by mouth in the morning. Bioflavonoid Products (Alana-C) tablet Every 24 hours. clotrimazole-betamethasone (Lotrisone) cream colchicine 0.6 MG tablet Take 0.6 mg by mouth in the morning and 0.6 mg at noon and 0.6 mg in the evening. Cyanocobalamin (Vitamin B-12) 5000 MCG tablet dispersible every 12 hours. dicyclomine (Bentyl) 20 MG tablet Take 1 tablet (20 mg) by mouth in the morning and 1 tablet (20 mg) at noon and 1 tablet (20 mg) in the evening. Take before meals. 90 tablet 1 fluticasone (Flonase) 50 MCG/ACT nasal spray Administer 1 spray into affected nostril(s). folic acid (Folvite) 1 MG tablet TAKE 1 TABLET BY MOUTH DAILY 30 tablet 0 furosemide (Lasix) 20 MG tablet Take 20 mg by mouth. ipratropium (Atrovent) 0.02 % nebulizer solution ketoconazole (NIZOral) 2 % shampoo levothyroxine (Synthroid, Levoxyl) 50 MCG tablet TAKE 1 TABLET BY MOUTH DAILY 30 tablet 0 levothyroxine (Synthroid, Levoxyl) 75 MCG tablet Every 24 hours. lidocaine (Xylocaine) 2 % solution lidocaine (Xylocaine) 5 % ointment every 8 hours. loperamide (Imodium A-D) 2 MG tablet every 6 hours. loratadine (Claritin) 10 MG tablet Every 24 hours. metFORMIN (Glucophage) 500 MG tablet Take 1,000 mg by mouth daily (with breakfast). niacin 100 MG tablet Every 24 hours. olmesartan (BENIcar) 40 MG tablet Take 40 mg by mouth daily. ondansetron ODT (Zofran-ODT) [address] 4-8 mg under the tongue. oxyCODONE (Roxicodone) 10 MG immediate release tablet Take 10 mg by mouth in the morning and 10 mg at noon and 10 mg in the evening and 10 mg before bedtime. pantoprazole (ProtoNix) 40 MG EC tablet Take 40 mg by mouth daily. potassium chloride ER (Micro-K) 10 MEQ ER capsule Take 10 mEq by mouth in the morning. pravastatin (Pravachol) 40 MG tablet Take 40 mg by mouth in the morning. predniSONE (Deltasone) 20 MG tablet TAKE ONE TABLET BY MOUTH TWICE DAILY FOR 5 DAYS tamsulosin (Flomax) 0.4 MG 24 hr capsule Take 0.4 mg by mouth daily. Allergies: Allopurinol and Penicillin g Social History: Social History Socioeconomic History Marital status: Tobacco Use Smoking status: Former Types: Cigars Smokeless tobacco: Former Vaping Use Vaping Use: Never used Substance and Sexual Activity Alcohol use: Yes Alcohol/week: 21.0 standard drinks Types: 21 Cans of beer per week Comment: TALL BOY ARE DOUBLE BEERS 42 Drug use: Yes Types: Marijuana Social Determinants of Health Transportation Needs: No Transportation Needs Lack of Transportation (Medical): No Lack of Transportation (Non-Medical): No Intimate Partner Violence: Not At Risk Fear of Current or Ex-Partner: No Emotionally Abused: No Physically Abused: No Sexually Abused: No Housing Stability: Unknown Unable to Pay for Housing in the Last Year: No Unstable Housing in the Last Year: No Family History: Family History Problem Relation Name Age of Onset Depression Mother Depression Maternal Grandmother REVIEW OF SYSTEMS: Review of Systems 10 point ros negative except for hpi Objective Vitals: BP 137/84 (BP Location: Left arm, Patient Position: Lying) Pulse 88 Temp 36 C (96.8 F) (Temporal) Resp 18 Ht 5' 10" (1.778 m) Wt 177 lb 7.5 oz (80.5 kg) SpO2 95% BMI 25.46 kg/m Physical Exam Pt is alert and oriented x 3 Heent wnl Heart regular Lungs ctab Abd tender in the ruq Ext no edema Assessment/Plan Patient Active Problem List Diagnosis Osteoarthritis of spine with radiculopathy, lumbar region Essential hypertension Hyponatremia Diabetes (HCC) Hypovolemia Cirrhosis (CMS/HCC) (HCC) Chronic alcoholic hepatitis Asthma Severe malnutrition (CMS/HCC) (HCC) Thyroid disease Sleep apnea Lumbar stenosis Postural dizziness with presyncope HLD (hyperlipidemia) Hepatitis Intractable nausea and vomiting Chronic pain syndrome Complication of surgical procedure Intercostal pain Low back pain Mild recurrent major depression (HCC) Myalgia Right hip pain Shoulder joint pain Acute kidney injury (CMS/HCC) (HCC) DENNYS (acute kidney injury) (CMS/HCC) (HCC) Abdominal pain RUQ pain cholecystitis DENNYS due to dehydration Cirrhosis HTN HPL pancytopenia Plan Admit to tele Consult gen surgery Consult renal Ivf hydration Pain control Monitor labs KACIE BENZ DO 12/23/22 8:43 PM [facility] 12-23-2022 History and physical note Department of Family Medicine Attending History and Physical CHIEF COMPLAINT: n/v Reason for Admission: same with DENNYS History Obtained From: patient History of Present Illness Woody Ni is a 62 y.o. male who presents to the emergency department nausea and vomiting. Patient states he does have cirrhosis from drinking. States he has not had an alcoholic beverage since December 16. Patient states he plans to have his gallbladder out within the next couple weeks. Given the patient having the underlying cirrhosis and possible ascites there concern giving the surgery could be somewhat complicated. Patient states he has had right upper quadrant right flank pain and back pain for several days now. States he has had intermittent nausea and vomiting for several weeks and months however it is gotten worse over the last few days. Patient denies any other associated symptoms. Denies chest pain shortness of breath, chest pain, dizziness, diarrhea. He is still having some pain in the ruq on exam today. He is scheduled for surgery January [address] Walsh. His creatinine had bumped over 6nnow down to 5 today with fluids Past Medical History: Past Medical History: Diagnosis Date Anxiety Back pain Cirrhosis (CMS/HCC) (HCC) Diabetes mellitus (HCC) Gout Hepatitis C Hypertension Hypothyroidism Past Surgical History: Past Surgical History: Procedure Laterality Date BACK SURGERY LAMINECTOMY WISDOM TOOTH EXTRACTION Medications Prior to Admission: Medications Prior to Admission Medication Sig Dispense Refill Last Dose acetaminophen (Tylenol) 325 MG tablet every 4 hours. albuterol (2.5 MG/3ML) 0.083% nebulizer solution Inhale 2.5 mg. albuterol 108 (90 Base) MCG/ACT inhaler INHALE TWO PUFFS BY MOUTH FOUR TIMES DAILY alendronate (Fosamax) 70 MG tablet Take 70 mg by mouth once a week. amLODIPine (Norvasc) 2.5 MG tablet Take 2.5 mg by mouth in the morning. Bioflavonoid Products (Alana-C) tablet Every 24 hours. clotrimazole-betamethasone (Lotrisone) cream colchicine 0.6 MG tablet Take 0.6 mg by mouth in the morning and 0.6 mg at noon and 0.6 mg in the evening. Cyanocobalamin (Vitamin B-12) 5000 MCG tablet dispersible every 12 hours. dicyclomine (Bentyl) 20 MG tablet Take 1 tablet (20 mg) by mouth in the morning and 1 tablet (20 mg) at noon and 1 tablet (20 mg) in the evening. Take before meals. 90 tablet 1 fluticasone (Flonase) 50 MCG/ACT nasal spray Administer 1 spray into affected nostril(s). folic acid (Folvite) 1 MG tablet TAKE 1 TABLET BY MOUTH DAILY 30 tablet 0 furosemide (Lasix) 20 MG tablet Take 20 mg by mouth. ipratropium (Atrovent) 0.02 % nebulizer solution ketoconazole (NIZOral) 2 % shampoo levothyroxine (Synthroid, Levoxyl) 50 MCG tablet TAKE 1 TABLET BY MOUTH DAILY 30 tablet 0 levothyroxine (Synthroid, Levoxyl) 75 MCG tablet Every 24 hours. lidocaine (Xylocaine) 2 % solution lidocaine (Xylocaine) 5 % ointment every 8 hours. loperamide (Imodium A-D) 2 MG tablet every 6 hours. loratadine (Claritin) 10 MG tablet Every 24 hours. metFORMIN (Glucophage) 500 MG tablet Take 1,000 mg by mouth daily (with breakfast). niacin 100 MG tablet Every 24 hours. olmesartan (BENIcar) 40 MG tablet Take 40 mg by mouth daily. ondansetron ODT (Zofran-ODT) [address] 4-8 mg under the tongue. oxyCODONE (Roxicodone) 10 MG immediate release tablet Take 10 mg by mouth in the morning and 10 mg at noon and 10 mg in the evening and 10 mg before bedtime. pantoprazole (ProtoNix) 40 MG EC tablet Take 40 mg by mouth daily. potassium chloride ER (Micro-K) 10 MEQ ER capsule Take 10 mEq by mouth in the morning. pravastatin (Pravachol) 40 MG tablet Take 40 mg by mouth in the morning. predniSONE (Deltasone) 20 MG tablet TAKE ONE TABLET BY MOUTH TWICE DAILY FOR 5 DAYS tamsulosin (Flomax) 0.4 MG 24 hr capsule Take 0.4 mg by mouth daily. Allergies: Allopurinol and Penicillin g Social History: Social History Socioeconomic History Marital status: Tobacco Use Smoking status: Former Types: Cigars Smokeless tobacco: Former Vaping Use Vaping Use: Never used Substance and Sexual Activity Alcohol use: Yes Alcohol/week: 21.0 standard drinks Types: 21 Cans of beer per week Comment: TALL BOY ARE DOUBLE BEERS 42 Drug use: Yes Types: Marijuana Social Determinants of Health Transportation Needs: No Transportation Needs Lack of Transportation (Medical): No Lack of Transportation (Non-Medical): No Intimate Partner Violence: Not At Risk Fear of Current or Ex-Partner: No Emotionally Abused: No Physically Abused: No Sexually Abused: No Housing Stability: Unknown Unable to Pay for Housing in the Last Year: No Unstable Housing in the Last Year: No Family History: Family History Problem Relation Name Age of Onset Depression Mother Depression Maternal Grandmother REVIEW OF SYSTEMS: Review of Systems 10 point ros negative except for hpi Objective Vitals: BP 137/84 (BP Location: Left arm, Patient Position: Lying) Pulse 88 Temp 36 C (96.8 F) (Temporal) Resp 18 Ht 5' 10" (1.778 m) Wt 177 lb 7.5 oz (80.5 kg) SpO2 95% BMI 25.46 kg/m Physical Exam Pt is alert and oriented x 3 Heent wnl Heart regular Lungs ctab Abd tender in the ruq Ext no edema Assessment/Plan Patient Active Problem List Diagnosis Osteoarthritis of spine with radiculopathy, lumbar region Essential hypertension Hyponatremia Diabetes (HCC) Hypovolemia Cirrhosis (CMS/HCC) (HCC) Chronic alcoholic hepatitis Asthma Severe malnutrition (CMS/HCC) (HCC) Thyroid disease Sleep apnea Lumbar stenosis Postural dizziness with presyncope HLD (hyperlipidemia) Hepatitis Intractable nausea and vomiting Chronic pain syndrome Complication of surgical procedure Intercostal pain Low back pain Mild recurrent major depression (HCC) Myalgia Right hip pain Shoulder joint pain Acute kidney injury (CMS/HCC) (HCC) DENNYS (acute kidney injury) (CMS/HCC) (HCC) Abdominal pain RUQ pain cholecystitis DENNYS due to dehydration Cirrhosis HTN HPL pancytopenia Plan Admit to tele Consult gen surgery Consult renal Ivf hydration Pain control Monitor labs KACIE BENZ DO 12/23/22 8:43 PM documented in this encounter [facility] 12-23-2022 Plan of care note The patient is Moderately Stable - Low risk of patient condition declining or worsening The patient's goals for the shift include The clinical goals for the shift include [facility] 12-23-2022 Emergency department Note Patient ambulated to EMS stretcher without difficulty Josephine Valverde RN 12/23/22 0005 [facility] 12-23-2022 Emergency department Note Patient ambulated to EMS stretcher without difficulty Josephine Valverde RN 12/23/22 0005 Patient appears to be in no acute distress. Respirations even and non labored. A&O x3. Bed locked, in low position, and call light within reach. No further needs. Skin assessed and no wounds or sores visible. Patient denies having any broken skin or sores Josephine Valverde RN 12/22/22 3109 Warm blankets provided to patient Josephine Valverde RN 12/22/22 2106 Patient ambulated to restroom with IV pole. No difficulty Josephine Valverde RN 12/22/222038 Patient appears to be in no acute distress. Respirations even and non labored. A&O x3. Bed locked, in low position, and call light within reach. No further needs. Spouse at bedside Josephine Valverde RN 12/22/222035 Patient at bedside with urinal Josephine Valverde RN 12/22/221926 Patient signed out to below 3 VCV attending. In short this is a 62-year-old male who presented for nausea and vomiting. He has a history of liver cirrhosis. He has known gallbladder pathology and has follow-up planned for further evaluation of this. He continues to have right upper abdominal pain. Patient had right upper quadrant pain on exam. Plan of care was to order labs, CT scan of the abdomen pelvis. I did review patient's blood work. His CBC does not show leukocytosis. His metabolic panel however did show a sodium of 124, creatinine of 6.62. This is markedly increased from previous. He also has elevated AST and ALT. I suspect she has severe dehydration and due to GI losses. He received 2 L of normal saline. His urinalysis does not show evidence of infection. CT scan of the abdomen pelvis did not show any acute findings. Given acute kidney injury I do feel patient requires admission. Discussed with Dr. Benz who agreed to accept patient for telemetry admission at [facility]. Rubén Hoang DO 12/23/22 0015 Patient arrived ambulatory with cane to room 15 without difficulty. Patient complains of vomiting for the past week. Patient is scheduled for GB removal on 01/05. Patient also complains of RLQ abdominal pain 07/28. Patient states he has also been having muscle cramps. Patient is diabetic but has not been checking his BS for the past week. Patient is A&Ox4. at bedside. documented in this encounter [facility] 12-22-2022 Emergency department Note Patient appears to be in no acute distress. Respirations even and non labored. A&O x3. Bed locked, in low position, and call light within reach. No further needs. Skin assessed and no wounds or sores visible. Patient denies having any broken skin or sores Josephine Valverde RN 12/22/222355 [facility] 12-22-2022 Emergency department Note Warm blankets provided to patient Josephine Valverde RN 12/22/222105 [facility] 12-22-2022 Emergency department Note Patient ambulated to restroom with IV pole. No difficulty Josephine Valverde RN 12/22/222038 [facility] 12-22-2022 Emergency department Note Patient appears to be in no acute distress. Respirations even and non labored. A&O x3. Bed locked, in low position, and call light within reach. No further needs. Spouse at bedside Josephine Valverde RN 12/22/222035 [facility] 12-22-2022 Note Questionable circumf erential wall thickening of the rectum, please correlate with clinical concern for colitis. Further evaluation with direct visualization may be obtained as indicated. Splenomegaly. Nonobstructing right renal calculi. Report Dictated on Electronically Signed By: Ryan White Electronically Signed Date/Time: 12/22/2022 8:01 PM [facility] [facility] 12-22-2022 Emergency department Note Patient at bedside with urinal Josephine Valverde RN 12/22/22 192 [facility] 12-22-2022 Emergency department Triage note Patient arrived ambulatory with cane to room 15 without difficulty. Patient complains of vomiting for the past week. Patient is scheduled for GB removal on 01/05. Patient also complains of RLQ abdominal pain 07/28. Patient states he has also been having muscle cramps. Patient is diabetic but has not been checking his BS for the past week. Patient is A&Ox4. at bedside. [facility] [employer] 12-22-2022 Physician Emergency department Note Patient signed out to below 3 VCV attending. In short this is a 62-year-old male who presented for nausea and vomiting. He has a history of liver cirrhosis. He has known gallbladder pathology and has follow-up planned for further evaluation of this. He continues to have right upper abdominal pain. Patient had right upper quadrant pain on exam. Plan of care was to order labs, CT scan of the abdomen pelvis. I did review patient's blood work. His CBC does not show leukocytosis. His metabolic panel however did show a sodium of 124, creatinine of 6.62. This is markedly increased from previous. He also has elevated AST and ALT. I suspect she has severe dehydration and due to GI losses. He received 2 L of normal saline. His urinalysis does not show evidence of infection. CT scan of the abdomen pelvis did not show any acute findings. Given acute kidney injury I do feel patient requires admission. Discussed with Dr. Benz who agreed to accept patient for telemetry admission at [facility]. Rubén Hoang DO 12/23/22 0015 [facility] 12-05-2022 Telephone encounter Note LVM requesting return call to confirm surgical itinerary was received for surgery scheduled 01/05/[address] Fang[address] [facility] 12-05-2022 Miscellaneous Notes LVM requesting return call to confirm surgical itinerary was received for surgery scheduled 01/05/[address] Fang. LVM asking patient to call back to confirm surgery dates. Name of caller: Kingsley Contact phone number: [phone] Relationship to Patient: spouse/SO Provider: Dr Ruperto Fang Practice: [facility] Chief Complaint/Reason for Call: Pt's spouse called to check on scheduling surgery for her . The office had tried to reach them. Surgery date of 12.16.2022 at 11am is being offered. This date and time is accepted. Please advise. Best time of day caller can be reached: any Patient advised that office/PCP has 24-48 business hours to return their call: No LVM for patient to return call to schedule surgery. Offering 12/16/22 @ 11:00am. documented in this encounter [facility] 11-27-2022 Telephone encounter Note LVM asking patient to call back to confirm surgery dates. [facility] 11-27-2022 Miscellaneous Notes LVM asking patient to call back to confirm surgery dates. Name of caller: Kingsley Contact phone number: [phone] Relationship to Patient: spouse/SO Provider: Dr Ruperto Fang Practice: [facility] Chief Complaint/Reason for Call: Pt's spouse called to check on scheduling surgery for her . The office had tried to reach them. Surgery date of 12.16.2022 at 11am is being offered. This date and time is accepted. Please advise. Best time of day caller can be reached: any Patient advised that office/PCP has 24-48 business hours to return their call: No LVM for patient to return call to schedule surgery. Offering 12/16/22 @ 11:00am. documented in this encounter [facility] 11-26-2022 Telephone encounter Note Name of caller: Kingsley Contact phone number: [phone] Relationship to Patient: spouse/SO Provider: Dr Ruperto Fang Practice: [facility] Chief Complaint/Reason for Call: Pt's spouse called to check on scheduling surgery for her . The office had tried to reach them. Surgery date of 12.16.2022 at 11am is being offered. This date and time is accepted. Please advise. Best time of day caller can be reached: any Patient advised that office/PCP has 24-48 business hours to return their call: No [facility] 11-26-2022 Miscellaneous Notes Name of caller: Kingsley Contact phone number: [phone] Relationship to Patient: spouse/SO Provider: Dr Ruperto Zografakis Practice: [facility] Chief Complaint/Reason for Call: Pt's spouse called to check on scheduling surgery for her . The office had tried to reach them. Surgery date of 12.16.2022 at 11am is being offered. This date and time is accepted. Please advise. Best time of day caller can be reached: any Patient advised that office/PCP has 24-48 business hours to return their call: No LVM for patient to return call to schedule surgery. Offering 12/16/22 @ 11:00am. documented in this encounter [facility] 11-20-2022 Telephone encounter Note LVM for patient to return call to schedule surgery. Offering 12/16/22 @ 11:00am. [facility] 11-20-2022 Miscellaneous Notes LVM for patient to return call to schedule surgery. Offering 12/16/22 @ 11:00am. documented in this encounter [facility] 11-07-2022 History of Present illness Narrative Images from the original note were not included. [facility] Physicians Surgery Patient Name: Woody Ni Date: 11/07/22 HPI: Woody Ni is a 62 y.o. male who presents with postprandial RUQ pain and emesis. Reports symptoms present for past 9 months. Has been to ED on 2 occassions due to pain and dehydration from vomiting. States pain occurs only after eating but will having vomiting every morning. US in June showed gallbladder sludge and US in August showed gallbladder wall thickening and pericholecystic fluid. Denies f/c. He has been having loose stool over the past few month. Denies melena or hematochezia. No previous abdominal surgeries. H/o DM, HTN, hep c (never received treatment and no active infection; +antibody). He was diagnosed with cirrhosis (no varices on recent EGD and no ascites on US). Former cigar smoker. Drinks 6 pack of beer per night. Smokes marijuana. I personally reviewed the patient intake form and discussed the ROS with the patient. The ROS is negative except for what is listed in HPI. US Abd 07/08/22 & 08/28/22 reviewed GES 06/06/[address] A/P 05/15/22 reviewed PMHx: Past Medical History: Diagnosis Date Anxiety Back pain Cirrhosis (CMS/HCC) (HCC) Diabetes mellitus (HCC) Gout Hepatitis C Hypertension Hypothyroidism PSHx: Past Surgical History: Procedure Laterality Date BACK SURGERY LAMINECTOMY WISDOM TOOTH EXTRACTION PFMHx: Family History Problem Relation Name Age of Onset Depression Mother Depression Maternal Grandmother ALL: Allergies Allergen Reactions Allopurinol Other Breaks out in blisters Penicillin G Swelling MEDS: Current Outpatient Medications Medication Sig Dispense Refill acetaminophen (Tylenol) 325 MG tablet every 4 hours. albuterol (2.5 MG/3ML) 0.083% nebulizer solution Inhale 2.5 mg. albuterol 108 (90 Base) MCG/ACT inhaler INHALE TWO PUFFS BY MOUTH FOUR TIMES DAILY alendronate (Fosamax) 70 MG tablet Take 70 mg by mouth once a week. amLODIPine (Norvasc) 2.5 MG tablet Take 2.5 mg by mouth in the morning. Bioflavonoid Products (Alana-C) tablet Every 24 hours. clotrimazole-betamethasone (Lotrisone) cream colchicine 0.6 MG tablet Take 0.6 mg by mouth in the morning and 0.6 mg at noon and 0.6 mg in the evening. Cyanocobalamin (Vitamin B-12) 5000 MCG tablet dispersible every 12 hours. fluticasone (Flonase) 50 MCG/ACT nasal spray Administer 1 spray into affected nostril(s). folic acid (Folvite) 1 MG tablet TAKE 1 TABLET BY MOUTH DAILY 30 tablet 0 furosemide (Lasix) 20 MG tablet Take 20 mg by mouth. ipratropium (Atrovent) 0.02 % nebulizer solution ketoconazole (NIZOral) 2 % shampoo levothyroxine (Synthroid, Levoxyl) 50 MCG tablet TAKE 1 TABLET BY MOUTH DAILY 30 tablet 0 lidocaine (Xylocaine) 2 % solution lidocaine (Xylocaine) 5 % ointment every 8 hours. loperamide (Imodium A-D) 2 MG tablet every 6 hours. loratadine (Claritin) 10 MG tablet Every 24 hours. metFORMIN (Glucophage) 500 MG tablet Take 1,000 mg by mouth daily (with breakfast). niacin 100 MG tablet Every 24 hours. olmesartan (BENIcar) 40 MG tablet Take 40 mg by mouth daily. ondansetron ODT (Zofran-ODT) [address] 4-8 mg under the tongue. oxyCODONE (Roxicodone) 10 MG immediate release tablet Take 10 mg by mouth in the morning and 10 mg at noon and 10 mg in the evening and 10 mg before bedtime. pantoprazole (ProtoNix) 40 MG EC tablet Take 40 mg by mouth daily. potassium chloride ER (Micro-K) 10 MEQ ER capsule Take 10 mEq by mouth in the morning. pravastatin (Pravachol) 40 MG tablet Take 40 mg by mouth in the morning. tamsulosin (Flomax) 0.4 MG 24 hr capsule Take 0.4 mg by mouth daily. dicyclomine (Bentyl) 20 MG tablet Take 1 tablet (20 mg) by mouth in the morning and 1 tablet (20 mg) at noon and 1 tablet (20 mg) in the evening. Take before meals. 90 tablet 1 levothyroxine (Synthroid, Levoxyl) 75 MCG tablet Every 24 hours. predniSONE (Deltasone) 20 MG tablet TAKE ONE TABLET BY MOUTH TWICE DAILY FOR 5 DAYS thiamine (Vitamin B-1) 100 MG tablet TAKE 1 TABLET BY MOUTH DAILY (Patient not taking: Reported on 11/07/2022) 30 tablet 0 No current facility-administered medications for this visit. SOCIAL Hx: Social History Socioeconomic History Marital status: Spouse name: Not on file Number of children: Not on file Years of education: Not on file Highest education level: Not on file Occupational History Not on file Tobacco Use Smoking status: Former Types: Cigars Smokeless tobacco: Former Substance and Sexual Activity Alcohol use: Yes Alcohol/week: 21.0 standard drinks Types: 21 Cans of beer per week Comment: TALL BOY ARE DOUBLE BEERS 42 Drug use: Yes Types: Marijuana Sexual activity: Not on file Other Topics Concern Not on file Social History Narrative Not on file Social Determinants of Health Financial Resource Strain: Not on file Food Insecurity: Not on file Transportation Needs: Not on file Physical Activity: Not on file Stress: Not on file Social Connections: Not on file Intimate Partner Violence: Not on file Housing Stability: Not on file DIAGNOSTIC EVALUATION: EGD 06/05/22 Dr Callaway Pathology 06/04/22 DIAGNOSIS: STOMACH, ANTRUM, BIOPSY - REACTIVE GASTROPATHY. Comment: Evaluation of the H&E-stained sections shows no evidence of Helicobacter pylori or any morphologic features to suggest infection with the organism; as such, further studies for Helicobacter are not indicated. There is no evidence of intestinal metaplasia, dysplasia or malignancy. US abd 08/28/22 IMPRESSION: 1. Diffuse hepatic steatosis. Gallbladder wall thickening, possible tiny amount of pericholecystic fluid. Negative Ortiz sign and no gallstones, however. US 07/08/22 @ [facility] IMPRESSION: Slightly coarsened hepatic echotexture with heterogeneous echogenicity which can be seen in association with fatty infiltration. No focal solid mass. Tiny simple cyst left hepatic lobe. Spleen at the upper limits of normal in size without focal mass. Gallbladder undistended with possible trace sludge but no calcified gallstones. Diffuse circumferential gallbladder wall thickening is present without edema or pericholecystic fluid. Both kidneys demonstrate diffuse cortical thinning and increased echogenicity which can be seen in chronic medical renal disease. GES 06/06/22 IMPRESSION: Normal gastric emptying with solid meal. CT A/P 05/15/22 Impression: Punctate nonobstructing renal stones of the right kidney. No hydronephrosis. Question diffuse mural thickening along the greater curvature the stomach. Follow-up EGD is suggested. Physical Examination: BP (!) 163/105 (BP Location: Right arm, Patient Position: Sitting, BP Cuff Size: Large adult) Pulse 103 Temp 35.9 C (96.7 F) (Temporal) Ht 5' 10" (1.778 m) Wt 184 lb (83.5 kg) BMI 26.40 kg/m He stands Height: 5' 10" (177.8 cm) tall with a weight of Weight: 184 lb (83.5 kg) , resulting in a BMI of Body mass index is 26.4 kg/m .. General: The patient is awake, alert, and oriented, and is in no apparent distress. Head and Neck: Normocephalic and atraumatic. Respiratory: Nonlabored breathing Abdomen: Soft, focally tender, nondistended. No abdominal scars as he has not had any prior abdominal surgery no umbilical changes or skin changes noted. Extremities: Ambulatory with a cane for assistance. Neurological: Intact x 4 extremities, no focal deficits notes. Skin: No rashes or lesions noted. Rectal: Not done. Hernia: no hernias found on exam IMPRESSION/PLAN: Woody was seen today for new patient. Diagnoses and all orders for this visit: Right upper quadrant abdominal pain (Primary) Gallbladder sludge Alcoholic cirrhosis of liver without ascites (CMS/HCC) (HCC) Other orders - dicyclomine (Bentyl) 20 MG tablet; Take 1 tablet (20 mg) by mouth in the morning and 1 tablet (20 mg) at noon and 1 tablet (20 mg) in the evening. Take before meals. 62yo with postprandial RUQ pain and US showing sludge and wall thickening. He does have cirrhosis but no ascites noted on US. Will plan for laparoscopic cholecystectomy. He will need medical risk stratification from his primary care physician. We will proceed with surgical intervention. I met with the patient today to discuss risks and benefits of laparoscopic Cholecystectomy, including, but not limited to injury to the cystic duct or common bile duct, conversion to open, the need for reoperative or endoscopic therapy, prolonged mechanical ventilation, and . We discussed potential for postcholecystectomy chronic diarrhea, the potential for hemorrhage, infection, incomplete resolution of His symptoms, as well as cardiac and pulmonary-related complications. The patient understands and wishes to proceed. Non-operative alternatives were discussed with the patient and they wish to proceed with surgical intervention. Plan: Initial Pre-Operative Testing Primary Procedure: laparoscopic cholecystectomy Clearance: PAT I met with him today, and his , to discuss risk and benefits of laparoscopic cholecystectomy. I discussed with him regarding incomplete resolution of his symptoms because of his underlying hepatic disease however he has an abnormal gallbladder ultrasound with circumferential wall thickening and sludge. No evidence of ascites on recent imaging. Negative EGD without evidence of varices. Proceed with surgical scheduling. He is in pain management, we will need to reach out to them prior to surgery so that we have an appropriate postoperative care plan for administration of narcotics postoperatively. I personally performed the evaluation and management of Woody Ni in the development of a treatment plan for this patient. I personally interviewed the patient and performed an individual physical examination. In addition, I discussed the patient's condition and treatment options with them. I have also reviewed and agree with the past medical, family and social history unless otherwise noted. All of the patient's questions were answered. I discussed/counseled the patient regarding the risks and benefits of surgery as well as the preoperative and postoperative care plan for this patient.The patient was seen and examined independently and relevant data reviewed by myself. A full chart review was performed. Patient Care Team: Jani Quezada as PCP - General Ana Callaway MD (Gastroenterology) hf documented in this encounter [facility] 07-11-2022 Miscellaneous Notes Called and spoke to Christie. They are going to call [facility] to get setup for the EGD and will call to schedule the consult with surgeon as well. Christine Fish Pt's significant other, Kingsley, notified. Please contact to schedule EGD. Terese Sarmiento Ma ----- Message from Munira Staley PA-C sent at 07/11/2022 10:38 AM EDT ----- No immunity to Hep A or B for which vaccination is recommended through local pharmacy/health department. No evidence of active Hep C infection. Decreased blood counts/worsened anemia, recommend that he schedules EGD at earliest availability. Reflex orders placed to assess for iron deficiencies that could be causing anemia. Munira Staley PA-C documented in this encounter [facility] 07-08-2022 Miscellaneous Notes Order placed, please advise pt on surg consult Munira Staley PA-C Spoke with pt's Fiance regarding results. Pt has been having right side abdominal pain for months. They would like a referral to see a surgeon. Us report faxed to PCP Terese Sarmiento Ma ----- Message from Munira Staley PA-C sent at 07/08/2022 2:10 PM EDT ----- Fatty appearing liver. Gallbladder wall thickening which is a nonspecific finding. No acute signs of inflammation. If any right sided abdominal pain/increased nausea it may be worthwhile to see a surgeon. Findings of possible chronic kidney disease, follow up with PCP regarding this. Munira Staley PA-C documented in this encounter [facility] 07-08-2022 History of Present illness Narrative Radiology Service Progress Note PATIENT NAME: Woody Ni DATE OF SERVICE: July 08, 2022 TIME: 9:12 AM PATIENT IDENTITY VERIFICATION COMPLETED USING TWO (2) IDENTIFIERS: Name and Date of confirmed by patient verbally. FALL SCREENING: Has the patient had 2 falls in the last year or 1 fall with injury or currently using an Ambulatory Assistive Device (Walker, Cane, Wheelchair, Crutches, etc.)? No PATIENT GENDER DATA: Male PATIENT RELEVANT IMPLANT DATA REVIEWED: Not Applicable RADIOLOGY DEPARTMENT: Ultrasound PERIPHERAL IV DATA: Not applicable SIGNED BY: Leonora Barfield RDMS RVT July 08, 2022 9:12 AM documented in this encounter [facility] 06-25-2022 Instructions Munira Staley PA-C - 06/25/2022 3:34 PM EDT Recommend high protein, high fiber diet. Promotion of salivation through oral lozenges/chewing gum Drink plenty of water Avoid NSAIDs (such as Advil, Ibuprofen, Excedrin, Mobic), tobacco, alcohol, carbonated beverages, caffeine, chocolate, tomato based sauces, spicy/fatty foods, and peppermint Avoid eating less than 3 hours before bed. Elevate the head of the bed 6 inches, or invest in a wedge pillow. Laying on left side with head elevated may help alleviate reflux symptoms. documented in this encounter [facility] 06-25-2022 History of Present illness Narrative CHIEF COMPLAINT: Patient presents with: Nausea & Vomiting: Gas, stomach upset, weight loss HPI: Woody Ni is a 62 year old male who presents for Nausea & Vomiting (Gas, stomach upset). Has h/o Hep C, cirrhosis, pt states this never required treatment. Currently drinking four beers a day, has been drinking this for years. Takes Lasix 20 mg PRN Has been on protonix for years, no emesis for the past two weeks. Bms are solely diarrhea never formed for the past 2 mos, no blood. Lost 40 lbs unintentionally in the past four mos. Denies abd pain, fevers, current emesis/nausea. CT abd 04/2022 nonobstructing right sided kidney stone, mural stomach thickening Record Review: [facility] / Outside records reviewed. PAST MEDICAL HISTORY Diagnosis Date Anemia, iron deficiency Arthritis Asthma Cirrhosis (HCC) Colonic polyp Diabetes (HCC) Diverticula of colon Esophageal varices (HCC) Essential hypertension Hepatitis HLD (hyperlipidemia) Sleep apnea Thyroid disease PAST SURGICAL HISTORY Procedure Laterality Date BACK SURGERY HX 2005 COLONOSCOPY 02/08/2014 normal COLONOSCOPY 01/20/2011 2 cm tubulovillous adenoma, anal fissure w/skin tag noted COLONOSCOPY 07/03/2003 normal EGD 10/29/2015 varices in the lower third of esophagus EGD 03/01/2013 gastritis with negative H pylori EGD W/O BRSH SPEC VARICIES INJ 05/06/2022 LIVER BIOPSY 01/28/2013 chronic hepatitis C, grade 2, stage 2-3 WRIST SURGERY HX Left 1985 Allergies: ALLERGIES Allergen Reactions Allopurinol Other: See Comments Breaks out in blisters Penicillin Swelling Medications: LIDOCAINE VISCOUS 2 % solution PROAIR HFA 90 mcg/actuation inhaler INHALE TWO PUFFS BY MOUTH FOUR TIMES DAILY ketoconazole (NIZORAL) 2 % shampoo pantoprazole DR (PROTONIX) 40 mg tablet albuterol (PROVENTIL) 2.5 mg /3 mL (0.083 %) nebulizer solution Use 2.5 mg via nebulizer as needed. alendronate (FOSAMAX) 70 mg tablet Take 70 mg by mouth once each week. amLODIPine (NORVASC) 2.5 mg tablet Take 2.5 mg by mouth once daily. TRUE METRIX GLUCOSE TEST STRIP test strip clotrimazole-betamethasone (LOTRISONE) cream COLCRYS 0.6 mg tablet Take 0.6 mg by mouth three times daily. fluticasone (FLONASE) 50 mcg/actuation nasal spray Use 1 Ringold in the nose once daily as needed. furosemide (LASIX) 20 mg tablet Take 20 mg by mouth once daily as needed. ipratropium (ATROVENT) 0.02 % nebulizer solution TRUEPLUS LANCETS 30 gauge misc levothyroxine (SYNTHROID) 100 mcg tablet Take 100 mcg by mouth once daily. metFORMIN (GLUCOPHAGE) 500 mg tablet Take 1,000 mg by mouth daily with breakfast. ondansetron (ZOFRAN) 4 mg tablet Take 4 mg by mouth as needed. oxyCODONE IR (ROXICODONE) 10 mg tab Take 10 mg by mouth four times daily. potassium chloride SR (MICRO-K) 10 mEq CR capsule Take 10 mEq by mouth once daily. pravastatin (PRAVACHOL) 40 mg tablet Take 40 mg by mouth once daily. FAMILY HISTORY Problem Relation Age of Onset Diabetes Mother Prostate Cancer Father Heart Father Open heart surgery Diabetes Sister Diabetes Other Colon Cancer No Family History Employer And Job Title: None on file Years Of Education Completed: Not specified Marital Status: Social History Tobacco Use Smoking status: Former Types: Cigars Quit date: 06/10/1983 Years since quittin.0 Smokeless tobacco: Never Vaping Use Vaping Use: Never used Substance Use Topics Alcohol use: No Comment: Quit drinking Drug use: No Review of Systems: Review of Systems Constitutional: Positive for appetite change. Cardiovascular: Positive for leg swelling. Gastrointestinal: Positive for diarrhea, nausea and vomiting. Gas, Heartburn All other systems reviewed and are negative. Are you taking any blood thinners? No Physical Examination: BP 142/88 Pulse 102 Ht 5' 10" (1.78m) Wt 164 lb (74.4kg) BMI 23.53 kg/(m^2). Physical Exam Constitutional: General: He is not in acute distress. Appearance: Normal appearance. He is normal weight. He is not ill-appearing, toxic-appearing or diaphoretic. HENT: Head: Normocephalic and atraumatic. Nose: Nose normal. Eyes: General: No scleral icterus. Right eye: No discharge. Left eye: No discharge. Extraocular Movements: Extraocular movements intact. Conjunctiva/sclera: Conjunctivae normal. Pupils: Pupils are equal, round, and reactive to light. Cardiovascular: Rate and Rhythm: Normal rate and regular rhythm. Pulses: Normal pulses. Heart sounds: Normal heart sounds. No murmur heard. No friction rub. No gallop. Pulmonary: Effort: No respiratory distress. Breath sounds: Normal breath sounds. No stridor. No wheezing, rhonchi or rales. Chest: Chest wall: No tenderness. Abdominal: General: Abdomen is flat. Bowel sounds are normal. There is no distension. Palpations: Abdomen is soft. There is no mass. Tenderness: There is no abdominal tenderness. There is no right CVA tenderness, left CVA tenderness, guarding or rebound. Hernia: No hernia is present. Musculoskeletal: General: Normal range of motion. Cervical back: Normal range of motion and neck supple. Comments: Ambulates with cane. Skin: General: Skin is warm and dry. Neurological: General: No focal deficit present. Mental Status: He is alert and oriented to person, place, and time. Psychiatric: Mood and Affect: Mood normal. Behavior: Behavior normal. Assessment/Plan (R93.3) Abnormal CT scan, stomach (primary encounter diagnosis) (Z87.19) History of esophageal varices (R19.7) Diarrhea, unspecified type (Z86.19) History of hepatitis C (R94.5) Abnormal results of liver function studies 1. Abnormal CT scan, stomach - CBC + DIFF; Future - COMP METABOLIC PANEL; Future - LIPASE BLD; Future - EGD DIAGNOSTIC; Future - Continue Protonix 40 mg daily, Zofran PRN - Discussed gastritis precautions - Avoid NSAIDs - EGD to assess gastric thickening noted on CT 04/2022 Recommend high protein, high fiber diet. Promotion of salivation through oral lozenges/chewing gum Drink plenty of water Avoid NSAIDs (such as Advil, Ibuprofen, Excedrin, Mobic), tobacco, alcohol, carbonated beverages, caffeine, chocolate, tomato based sauces, spicy/fatty foods, and peppermint Avoid eating less than 3 hours before bed. Elevate the head of the bed 6 inches, or invest in a wedge pillow. Laying on left side with head elevated may help alleviate reflux symptoms. 2. History of esophageal varices - EGD DIAGNOSTIC; Future 3. Diarrhea, unspecified type - C. DIFFICILE PCR - CRYPTOSPORIDIUM AND GIARDIA ANTIGENS BY EIA - ENTERIC BACTERIAL PANEL BY PCR - Stool studies to r/o ID - Avoid Imodium - Encouraged low sugar electrolyte rich beverages 4. History of hepatitis C - US ABD RT UPPER QUADRANT; Future - HCV QUANT RNA BY PCR; Future - PROTHROMBIN TIME/PT; Future - HEPATITIS A ANTIBODY, IGG; Future - HEP B SURF AB QUANT; Future - HEP B CORE AB TOTAL; Future - HEP B SURF AG SCRN; Future - h/o Hep C, never received tx, told by PCP tx was not needed, plan to recheck HCV RNA, no image/bx confirmation of cirrhosis. Has h/o varices from 2016. Per pt EGD from 2021 showed no varices - Check Hep A/B immunity Recommended to please call office/go to ER if fever, chills, chest pain, SOB, diarrhea, nausea, emesis, worsening abdominal pain, dehydration occurs I spent a total of 30 minutes on the date of the service which included preparing to see the patient, [id number] patient care, completing clinical documentation, obtaining and/or reviewing separately obtained history, performing a medically appropriate examination, counseling and educating the patient/family/caregiver, ordering medications, tests, or procedures, communicating with other HCPs (not separately reported), independently interpreting results (not separately reported), communicating results to the patient/family/caregiver, and care coordination (not separately reported). Munira Staley PA-C June 25, 2022 3:38 PM documented in this encounter [facility] 06-06-2022 Note Hospitalist Discharg e Summary Patient ID: Woody Ni Patient : 1960 Patient's PCP: Jani Quezada MD Admit Date: 06/03/2022 Admitting Physician: Marlyn Dash MD Discharge Date: 06/06/22 Discharge Physician: Nicolas Qiu MD Discharge Condition: Stable Discharge Disposition: Home Hospital course in brief: (Please refer to daily progress notes for a comprehensive review of the hospitalization by requesting medical records) 62 y.o. male who presents with complaints of dehydration and poor toleration of p.o. intake He presents for for a brief syncopal episode which he attributes to his low volume state. Admits to drinking 6 beers today prior to him losing consciousness and the last drink was at noon . States he started to feel lightheaded and passed out. Syncopal episode was brief, his son heard him fall and came to help States he currently feels back to baseline. EMS report that his blood pressures was initially in the 60s systolic. After about 500 mL of fluid the patient is 95/60 at this time. No tachycardia was noted on workup in the ED He states that he will have nausea vomiting after coughing fits usually at night. He does not have nausea/vomiting directly in response to eating. He states he has had diarrhea as well for about 3 weeks. He doesn't have any blood in stool or hematemesis. The patient drinks 4-6 beers on average per day and denies a history of withdrawals. He has not been eating a good diet Na noted to be 119 during workup in ED, received 2 boluses of fluid. After arrival here, sodium was 130 Hospital course GI consultation-EGD with biopsy-normal examination and biopsied. Patient's hyponatremia likely due to beer potomania-improved without intervention. Patient has normocytic anemia likely also due to poor nutrition. Patient discharged with recommendations for alcohol cessation but patient was unwilling to discuss further. Patient was discharged in stable condition otherwise. Consults: IP CONSULT TO SOCIAL WORK IP CONSULT TO DIETITIAN IP CONSULT TO GI Discharge Diagnoses: Hypokalemia likely due to diuretic Hyponatremia-likely. [place] Nausea vomiting resolved Upretx-opnqphb-[id number] DENNYS-resolved Hypokalemia Alcohol use disorder Hypertension Hypothyroidism Type 2 diabetes Hepatitis C Chronic back pain Severe malnutrition Pancytopenia likely due to alcohol use, poor nutrition and cirrhosis Discharge exam: BP 130/81 Pulse 96 Temp 97.1 ?F (36.2 ?C) (Temporal) Resp 18 Ht 5' 10" (1.778 m) Wt 177 lb (80.3 kg) SpO2 99% BMI 25.40 kg/m? Constitutional: oriented to person, place, and time,appears well-developed and well-nourished. HEENT: Right Ear: External ear normal. Left Ear: External ear normal. Mouth/Throat: Oropharynx is clear and moist. Eyes: Conjunctivae and EOM are normal. PERRLA. Neck: Normal range of motion. No thyromegaly present. No bruit. No JVD Cardiovascular: Normal rate, regular rhythm, normal heart sounds. No murmurs appreciated Pulmonary/Chest: Effort normal and breath sounds normal. No rhonchi or rales appreciated Abdominal: Soft. Bowel sounds are normal. Exhibits no distension. No tenderness. Musculoskeletal: Normal range of motion. Exhibits no edema. deferred Neurological: is alert and oriented to person, place, and time. Motor and sensation grossly intact. Skin: Skin is warm and dry. No rashes, lesions. Psychiatric: has a normal mood and affect. Behavior is normal. Discharge Instructions / Follow up: Patient was advised to follow-up with PCP within 1 week of discharge and repeat BMP to follow sodium, potassium. Continued appropriate risk factor modification of blood pressure, diabetes and serum lipids will remain essential to reducing risk of future atherosclerotic development Activity: activity as tolerated Significant labs: CBC: Recent Labs 06/04/22 0219 06/04/22 1243 06/05/22 0523 WBC 2.4* 3.5* 3.4* RBC 2.33* 3.07* 3.21* HGB 8.0* 10.5* 10.9* HCT 23.4* 30.5* 31.7* MCV 100.5* 99.5* 98.7* RDW 13.2 13.3 13.4 PLT 72* 98* 104* BMP: Recent Labs 06/04/22 0219 06/04/22 1012 06/05/22 0523 06/05/22 1105 06/05/22 1705 06/05/22 2232 06/06/22 0510 NA 130* < > 128* < > 127* 129* 127* K 3.4* -- 4.5 -- -- -- 4.6 CL 108* -- 97* -- -- -- 100 CO2 16* -- 24 -- -- -- 23 BUN 4* -- 8 -- -- -- 7 CREATININE 1.04 -- 1.19 -- -- -- 1.23 < > = values in this interval not displayed. LFT: Recent Labs 06/03/22 1850 06/04/22 0219 06/04/22 1243 06/05/22 0523 06/06/22 0510 PROT 6.5 < > 5.8* 6.2* 6.1* ALKPHOS 49 < > 52 58 65 ALT 227* < > 182* 191* 183* AST 288* < > 192* 178* 175* BILITOT 0.6 < > 0.4 0.6 0.7 LIPASE 142 -- 99 -- -- < > = values in this interval not displayed. PT/INR: Recent Labs 06/04/22 0219 INR 1.3* BNP: No results for input(s): BNP in the last 72 hours. Hgb A1C: Lab Results Component Valu (more content not included)... [facility] 06-06-2022 Hospital course Narrative Images from the original note were not included. Hospitalist Discharge Summary Patient ID: Woody Ni Patient : 1960 Patient's PCP: Jani Quezada MD Admit Date: 06/03/2022 Admitting Physician: Marlyn Dash MD Discharge Date: 06/06/22 Discharge Physician: Nicolas Qiu MD Discharge Condition: Stable Discharge Disposition: Home Hospital course in brief: (Please refer to daily progress notes for a comprehensive review of the hospitalization by requesting medical records) 62 y.o. male who presents with complaints of dehydration and poor toleration of p.o. intake He presents for for a brief syncopal episode which he attributes to his low volume state. Admits to drinking 6 beers today prior to him losing consciousness and the last drink was at noon . States he started to feel lightheaded and passed out. Syncopal episode was brief, his son heard him fall and came to help States he currently feels back to baseline. EMS report that his blood pressures was initially in the 60s systolic. After about 500 mL of fluid the patient is 95/60 at this time. No tachycardia was noted on workup in the ED He states that he will have nausea vomiting after coughing fits usually at night. He does not have nausea/vomiting directly in response to eating. He states he has had diarrhea as well for about 3 weeks. He doesn't have any blood in stool or hematemesis. The patient drinks 4-6 beers on average per day and denies a history of withdrawals. He has not been eating a good diet Na noted to be 119 during workup in ED, received 2 boluses of fluid. After arrival here, sodium was 130 Hospital course GI consultation-EGD with biopsy-normal examination and biopsied. Patient's hyponatremia likely due to beer potomania-improved without intervention. Patient has normocytic anemia likely also due to poor nutrition. Patient discharged with recommendations for alcohol cessation but patient was unwilling to discuss further. Patient was discharged in stable condition otherwise. Consults: IP CONSULT TO SOCIAL WORK IP CONSULT TO DIETITIAN IP CONSULT TO GI Discharge Diagnoses: Hypokalemia likely due to diuretic Hyponatremia-likely. [place] Nausea vomiting resolved Spkqfu-iogkeal-lxcgtwuwxa DENNYS-resolved Hypokalemia Alcohol use disorder Hypertension Hypothyroidism Type 2 diabetes Hepatitis C Chronic back pain Discharge exam: BP 130/81 Pulse 96 Temp 97.1 F (36.2 C) (Temporal) Resp 18 Ht 5' 10" (1.778 m) Wt 177 lb (80.3 kg) SpO2 99% BMI 25.40 kg/m Constitutional: oriented to person, place, and time,appears well-developed and well-nourished. HEENT: Right Ear: External ear normal. Left Ear: External ear normal. Mouth/Throat: Oropharynx is clear and moist. Eyes: Conjunctivae and EOM are normal. PERRLA. Neck: Normal range of motion. No thyromegaly present. No bruit. No JVD Cardiovascular: Normal rate, regular rhythm, normal heart sounds. No murmurs appreciated Pulmonary/Chest: Effort normal and breath sounds normal. No rhonchi or rales appreciated Abdominal: Soft. Bowel sounds are normal. Exhibits no distension. No tenderness. Musculoskeletal: Normal range of motion. Exhibits no edema. deferred Neurological: is alert and oriented to person, place, and time. Motor and sensation grossly intact. Skin: Skin is warm and dry. No rashes, lesions. Psychiatric: has a normal mood and affect. Behavior is normal. Discharge Instructions / Follow up: Patient was advised to follow-up with PCP within 1 week of discharge and repeat BMP to follow sodium, potassium. Continued appropriate risk factor modification of blood pressure, diabetes and serum lipids will remain essential to reducing risk of future atherosclerotic development Activity: activity as tolerated Significant labs: CBC: Recent Labs 06/04/22 0219 06/04/22 1243 06/05/22 0523 WBC 2.4* 3.5* 3.4* RBC 2.33* 3.07* 3.21* HGB 8.0* 10.5* 10.9* HCT 23.4* 30.5* 31.7* MCV 100.5* 99.5* 98.7* RDW 13.2 13.3 13.4 PLT 72* 98* 104* BMP: Recent Labs 06/04/22 0219 06/04/22 1012 06/05/22 0523 06/05/22 1105 06/05/22 1705 06/05/22 2232 06/06/22 0510 NA 130* < > 128* < > 127* 129* 127* K 3.4* -- 4.5 -- -- -- 4.6 CL 108* -- 97* -- -- -- 100 CO2 16* -- 24 -- -- -- 23 BUN 4* -- 8 -- -- -- 7 CREATININE 1.04 -- 1.19 -- -- -- 1.23 < > = values in this interval not displayed. LFT: Recent Labs 06/03/22 1850 06/04/22 0219 06/04/22 1243 06/05/22 0523 06/06/22 0510 PROT 6.5 < > 5.8* 6.2* 6.1* ALKPHOS 49 < > 52 58 65 ALT 227* < > 182* 191* 183* AST 288* < > 192* 178* 175* BILITOT 0.6 < > 0.4 0.6 0.7 LIPASE 142 -- 99 -- -- < > = values in this interval not displayed. PT/INR: Recent Labs 06/04/22 021 INR 1.3* BNP: No results for input(s): BNP in the last 72 hours. Hgb A1C: Lab Results Component Value Date LABA1C 4.9 06/04/2022 Folate and B12: Lab Results Component Value Date HMIVRSXR20 725 06/04/2022 , No results found for: FOLATE Thyroid Studies: Lab Results Component Value Date TSH 2.601 06/04/2022 Urinalysis: Lab Results Component Value Date/Time NITRU Negative 06/03/2022 07:47 PM WBCUA 0-2 05/15/2022 05:12 PM BACTERIA Negative 05/15/2022 05:12 PM RBCUA Negative 05/15/2022 05:12 PM GLUCOSEU Normal 06/03/2022 07:47 PM Imaging: NM GASTRIC EMPTYING Result Date: 06/06/2022 Patient Name: WOODY NI Nuclear Medicine ACCESSION EXAM DATE/TIME PROCEDURE ORDERING PROVIDER [id number] 06/06/2022 12:02 EDT NM Gastric Emptying 197433 -JUAN IFIJEN Study CPT code 08345 Reason For Exam (NM Gastric Emptying Study) Possible gastroparesis Report SOLID PHASE GASTRIC EMPTYING STUDY CLINICAL INDICATION: Gastroparesis The patient was given a standard meal of 1.1 millicurie of technetium-99m sulfur colloid prepared with egg. Anterior and posterior images over the abdomen were obtained up to two hours after ingestion. MALINI activity curves over the stomach were then calculated. COMPARISON: None FINDINGS: At one hour, there is 58 percent of original activity within the stomach. At two hours after ingestion, 27 percent of original activity remains within the stomach. Normal at two hours following ingestion is between 19 and 52 percent. IMPRESSION: Normal gastric emptying with solid meal. Report Dictated on --- Final --- Dictating Physician: MD LYN JONATHAN R Signed Date and Time: 06/06/2022 12:13 pm Signed by: MD LYN JONATHAN R Transcribed Date and Time: 06/06/2022 12:14 CT Abdomen Pelvis Wo Contrast Result Date: 05/15/2022 [id number]ed Tomography ACCESSION EXAM DATE/TIME PROCEDURE ORDERING PROVIDER [id number] 05/15/2022 17:[address] Abdomen/Pelvis (No MD AMADA, HANY T PO, No IV) CPT code 48683 Reason For Exam (CT Abdomen/Pelvis (No PO, No IV)) RIGHT flank pain, Hx: kidney stones Report Examination: CT abdomen/pelvis Indication: RIGHT flank pain, Hx: kidney stones Technique: Axial CT images of the abdomen/pelvis were obtained without oral or IV contrast at 3 mm intervals. Images were acquired from the lung bases through the symphysis pubis. Coronal and sagittal reconstructions were also provided for review. Findings: Diffusely diminished attenuation of the liver is present. There are two tiny nonobstructing renal stones of the right kidney. No significant hydronephrosis of either kidney. The solid organs in the upper abdomen are otherwise unremarkable. Large and small bowel are grossly unremarkable. Question diffuse mural thickening along the greater curvature the stomach. Mild aortoiliac calcification present. No abdominal/pelvic adenopathy. Levoscoliosis of the lumbar spine is present with fairly advanced degenerative disc disease, greatest at L2/L3 and L4/L5. Laminectomy changes of the lumbar spine are present. The lung bases are grossly clear. Left posterior rib fracture is present with mild hypertrophic change. Impression: Punctate nonobstructing renal stones of the right kidney. No hydronephrosis. Question diffuse mural thickening along the greater curvature the stomach. Follow-up EGD is suggested. Computed Tomography Report Report Dictated on --- Final --- Dictating Physician: MD KAM KRIKOR Signed Date and Time: 05/15/2022 5:58 pm Signed by: MD KAM KRIKOR Transcribed Date and Time: 05/15/2022 5:59 Discharge Medications: Medication List START taking these medications folic acid 1 MG tablet Commonly known as: FOLVITE Take 1 tablet by mouth daily Start taking on: June 07, 2022 oxyCODONE-acetaminophen 5-325 MG per tablet Commonly known as: Percocet Take 2 tablets by mouth every 6 hours as needed for Pain for up to 1 day. Intended supply: 5 days. Take lowest dose possible to manage pain Replaces: oxyCODONE-acetaminophen 10-325 MG per tablet thiamine 100 MG tablet Take 1 tablet by mouth daily Start taking on: June 07, 2022 CHANGE how you take these medications levothyroxine 50 MCG tablet Commonly known as: SYNTHROID Take 1 tablet by mouth Daily Start taking on: June 07, 2022 What changed: medication strength how much to take how to take this when to take this CONTINUE taking these medications alendronate 70 MG tablet Commonly known as: FOSAMAX buPROPion 150 MG extended release tablet Commonly known as: Wellbutrin XL Take 1 tablet by mouth every morning clotrimazole-betamethasone 1-0.05 % cream Commonly known as: LOTRISONE Colcrys 0.6 MG tablet Generic drug: colchicine escitalopram 20 MG tablet Commonly known as: LEXAPRO Take 1 tablet by mouth daily metFORMIN 500 MG tablet Commonly known as: GLUCOPHAGE ondansetron 4 MG disintegrating tablet Commonly known as: ZOFRAN-ODT Place 1-2 tablets under the tongue 3 times daily as needed for Nausea or Vomiting oxyCODONE 5 MG capsule pantoprazole 40 MG tablet Commonly known as: PROTONIX pravastatin 40 MG tablet Commonly known as: PRAVACHOL ProAir HFA 108 (90 Base) MCG/ACT inhaler Generic drug: albuterol sulfate HFA tamsulosin 0.4 MG capsule Commonly known as: FLOMAX Take 1 capsule by mouth daily STOP taking these medications amLODIPine 10 MG tablet Commonly known as: NORVASC furosemide 20 MG tablet Commonly known as: LASIX oxyCODONE-acetaminophen 10-325 MG per tablet Commonly known as: PERCOCET Replaced by: oxyCODONE-acetaminophen 5-325 MG per tablet potassium chloride 10 MEQ extended release capsule Commonly known as: MICRO-K Where to Get Your Medications These medications were sent to [address] [place] - P [phone] - F [phone] [place] [id number] folic acid 1 MG tablet levothyroxine 50 MCG tablet thiamine 100 MG tablet Information about where to get these medications is not yet available Ask your nurse or doctor about these medications oxyCODONE-acetaminophen 5-325 MG per tablet Time Spent on discharge is more than 40 minutes in the examination, evaluation, counseling and review of medications and discharge plan. +++++++++++++++++++++++++++++++++++ ++++++++++++++ Nicolas Qiu MD HOSPITALIST +++++++++++++++++++++++++++++++++++ ++++++++++++++ NOTE: This report was transcribed using voice recognition software. Every effort was made to ensure accuracy; however, inadvertent computerized certified genetic counselor errors may be present. documented in this encounter [facility] Work Phone: 06-05-2022 History of Present illness Narrative Images from the original note were not included. Hospitalist Progress Note 06/05/2022 [phone]: Please page me ([phone]) for patient care issues. [phone]: Please page [facility] night Hospitalist for any issues. Subjective: Admit Date: 06/03/2022 PCP: Jani Quezada MD Room#: 243/2431 Interval History: Follow-up for intractable nausea and vomiting ADULT DIET; Regular; 5 carb choices (75 gm/meal) Patient Vitals for the past 96 hrs (Last 3 readings): Weight 06/05/22 1225 177 lb (80.3 kg) 06/03/22 1843 177 lb (80.3 kg) 24HR INTAKE/OUTPUT: No intake or output data in the 24 hours ending 06/05/22 1750 Past Medical History: Diagnosis Date Anxiety Back pain Diabetes mellitus (HCC) Gout Hepatitis C Hypertension Hypothyroidism LABS: CBC: Recent Labs 06/04/22 0219 06/04/22 1243 06/05/22 0523 WBC 2.4* 3.5* 3.4* RBC 2.33* 3.07* 3.21* HGB 8.0* 10.5* 10.9* HCT 23.4* 30.5* 31.7* MCV 100.5* 99.5* 98.7* RDW 13.2 13.3 13.4 PLT 72* 98* 104* BMP: Recent Labs 06/03/22 1850 06/04/22 0219 06/04/22 1012 06/05/22 0523 06/05/22 1105 06/05/22 1705 NA 119* 130* < > 128* 126* 127* K 4.2 3.4* -- 4.5 -- -- CL 92* 108* -- 97* -- -- CO2 14* 16* -- 24 -- -- BUN 8 4* -- 8 -- -- CREATININE 1.66* 1.04 -- 1.19 -- -- GLUCOSE 114* 76 -- 93 -- -- CALCIUM 8.6 6.3* -- 8.9 -- -- ANIONGAP 13 6 -- 7 -- -- < > = values in this interval not displayed. LIVER PROFILE: Recent Labs 06/04/22 02106/04/22 1243 06/05/22 0523 AST 177* 192* 178* ALT 172* 182* 191* BILITOT 0.3 0.4 0.6 ALKPHOS 38 52 58 LABALBU 2.7* 3.6 3.7 PROT 4.7* 5.8* 6.2* PT/INR: Recent Labs 06/04/22218 PROTIME 13.8* INR 1.3* CARDIAC ENZYMES: Recent Labs 06/03/22 185 TROPONINI <0.012 Procalcitonin: No results found for: PROCAL COVID-19 PCR: No results for input(s): COVID19 in the last 72 hours. Objective: Vitals: BP (!) 159/91 Pulse 84 Temp 97.5 F (36.4 C) (Temporal) Resp 18 Ht 5' 10" (1.778 m) Wt 177 lb (80.3 kg) SpO2 97% BMI 25.40 kg/m Pulse Ox: SpO2 Av.3 % Min: 97 % Max: 100 % Supplemental O2: Medications: sodium chloride dextrose cloNIDine 0.1 mg Oral BID [Held by provider] amLODIPine 10 mg Oral Daily colchicine 0.6 mg Oral Daily levothyroxine 50 mcg Oral Daily potassium chloride 10 mEq Oral Daily pravastatin 20 mg Oral Nightly pantoprazole 40 mg Oral Daily escitalopram 20 mg Oral Daily buPROPion 150 mg Oral QAM tamsulosin 0.4 mg Oral Daily sodium chloride flush 5-40 mL IntraVENous 2 times per day thiamine 100 mg Oral Daily folic acid 1 mg Oral Daily insulin lispro 0-8 Units SubCUTAneous TID WC insulin lispro 0-4 Units SubCUTAneous Nightly lidocaine 1 patch TransDERmal Daily Assessment Hypovolemia Hyponatremia Nausea/vomiting Anemia DENNYS-resolved Hypotension Hypokalemia Alcohol use disorder HTN Hypothyroidism DM2 Hepatitis C Chronic back pain Plan Hyponatremia -We will check secondary to beer potomania and hypovolemia. Slowly improving. Continue to monitor. Hypovolemia/hypotension -Improving with IV fluids. Nausea/vomiting -Questionable diffuse wall thickening of the greater curvature of the esophagus noted on CT of the abdomen. Possible gastritis. Suspect gastroparesis though. Underwent EGD today. Results pending. May need a gastric emptying study. Will order for tomorrow morning. Scheduled Zofran. Anemia -no signs of bleeding per patient -Woke up. DENNYS-resolved Alcohol use disorder -Patient is on CIWA protocol. We will continue. Hypokalemia Replete K Rest of home medications per regimen. -DVT prophylaxis: [] Lovenox [] Heparin [] SCDs [x] Encourage ambulation [] Already on Anticoagulation Advance Directive: No Order Discharge planning: TBD Ashlyn Atkinson MD Division of Hospitalist Medicine Inpatient Medical Services/[facility]: [phone] CIWA score increasing, orders placed for Ativan for alcohol withdrawal. This patient was seen as a hospital courtesy for improved patient care at the request of Dr Atkinson. Thank you for allowing me to participate in the medical care of your patient. Work Categories (check all that apply) [] Avoidable Day Recovered [] Query Response for [name] [] Discharge Planning [] Readmission Risk Addressed [] PSI / HAC reviewed [] Med Rec Addressed [] SOI Expected Impact [] ROM Expected Impact [] POA Clarified [] LIQUEFIER Avoided [] Nursing Function [] Provider Function for [name] [x] Orders Placed [] Symptom Assessment [] Patient Experience [] Patient / Caregiver Conversation Physical Therapy Facility/Department: [facility] Physical Therapy Initial Assessment Name: Woody Ni : 1960 Date of Service: 06/05/2022 Discharge Recommendations: Home with assist PRN, Home with Home health PT PT Equipment Recommendations Equipment Needed: No Patient Diagnosis(es): The primary encounter diagnosis was Syncope and collapse. Diagnoses of Hyponatremia and Acute alcoholic intoxication without complication (HCC) were also pertinent to this visit. Past Medical History: has a past medical history of Anxiety, Back pain, Diabetes mellitus (HCC), Gout, Hepatitis C, Hypertension, and Hypothyroidism. Past Surgical History: has a past surgical history that includes back surgery and laminectomy. Assessment Body Structures, Functions, Activity Limitations Requiring Skilled Therapeutic Intervention: Decreased functional mobility ;Decreased ROM;Decreased strength;Decreased safe awareness;Decreased endurance;Decreased balance;Increased pain;Decreased posture Assessment: Patient admitted 06/03 with dizziness and dehydration. Pt also with syncopal episode and was found to have ETOH abuse, hyponatremia, hypokalemia and hypotension. Pt presents with the above deficits limiting his functioanl independence. On evaluation patient requires SBA for bed mobility and transfers and CGA for ambulation with single point cane. Pt demos decreased balance and is limited by rapid fatigue with SOB. Pt should benefit from skilled PT to increase functional independence and safety with mobility. Rec [facility] PT and assist prn. Therapy Prognosis: Good Decision Making: Medium Complexity History: Patient admitted 06/03 with dizziness and dehydration. Pt also with syncopal episode and was found to have ETOH abuse, hyponatremia, hypokalemia and hypotension. PMH listed above. Exam: AM-PAC Clinical Presentation: Pt has PMH as indicated above that contributes to his clinical presentation. At baseline patient lives with his and is functionally independent with a cane. Pt is normally sedentary at home due to poor endurance. Rec [facility] upon discharge. Barriers to Learning: none Requires PT Follow-Up: Yes Activity Tolerance Activity Tolerance: Patient limited by fatigue;Patient limited by endurance;Patient limited by pain Plan Plan Plan: (5 visits) Current Treatment Recommendations: Strengthening, ROM, Balance training, Functional mobility training, Transfer training, Gait training, Stair training, Endurance training, Pain management, Home exercise program, Safety education & training, Patient/Caregiver education & training, Equipment evaluation, education, & procurement, Positioning, Therapeutic activities Plan Comment: all goals and/or treatment were established in collaboration with [facility] Safety Devices Type of Devices: All fall risk precautions in place, Call light within reach, Gait belt, Patient at risk for falls, Left in bed, Nurse notified Restraints Restraints Initially in Place: No Restrictions Restrictions/Precautions Restrictions/Precautions: Fall Risk, General Precautions, Contact Precautions (CIWA) Required Braces or Orthoses?: No Subjective Pain: abdominal pain 06/28 and chronic back pain 05/28 General Chart Reviewed: Yes Patient assessed for rehabilitation services?: Yes Family / Caregiver Present: No Follows Commands: Within Functional Limits General Comment Comments: Per RN patient okay for therapy. Subjective Subjective: Pt lying in bed and agreeable to therapy Social/Functional History Social/Functional History Lives With: Spouse Type of Home: House Home Layout: Two level, Able to Live on Main level with bedroom/bathroom Home Access: Stairs to enter without rails Entrance Stairs - Number of Steps: 2 Bathroom Shower/Tub: Tub/Shower unit Bathroom Toilet: Standard Bathroom Equipment: (denies) Bathroom Accessibility: Accessible Home Equipment: Cane, Walker, rolling, Wheelchair-manual Receives Help From: Family ADL Assistance: Independent Homemaking Assistance: Independent ( mainly completes) Homemaking Responsibilities: Yes Ambulation Assistance: Independent Transfer Assistance: Independent Active Environmental Field Office Manager: No Patient's Environmental Field Office Manager Info: Christie Mode of Transportation: Car Education: NA 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 Vision/Hearing Vision Vision: Within Functional Limits Hearing Hearing: Within functional limits Cognition Orientation Overall Orientation Status: Within Functional Limits Cognition Overall Cognitive Status: WFL Objective Heart Rate: 90 Heart Rate Source: Monitor BP: (!) 150/99 BP Location: Left Arm Patient Position: Sitting MAP (Calculated): 116 Resp: 16 SpO2: 98 % Observation/Palpation Posture: Good Observation: tele intact Gross Assessment AROM: Within functional limits PROM: Within functional limits Strength: Within functional limits Coordination: Within functional limits Tone: Normal Sensation: Intact Bed mobility Sit to Supine: Stand by assistance Scooting: Stand by assistance Bed Mobility Comments: HOB elevated and increased time to complete. Pt educated on log roll for pain control, however completed with impulsiveness and sat up in pain. Pt with decreased nausea this date. Transfers Sit to Stand: Stand by assistance Stand to sit: Stand by assistance Comment: from EOB to SPC with SBA for safety. General unsteadiness with no acute LOB noted. Denies dizzines. Ambulation Surface: level tile Device: Single point cane Assistance: Contact guard assistance Quality of Gait: Pt ambulates with short reciprocal steps and wide JM. Demos acute LOB with change in direction and requires CGA for safety throughout. Pt leaned against wall in hallway for standing rest break due to increased SOB. Gait Deviations: Slow Heide;Increased JM;Decreased step length;Decreased step height;Staggers Distance: ~50'x1 Comments: Pt limited by fatigue and pain this date. Demos dereased safety awareness. May benefit from FWW for safety. More Ambulation?: No Stairs/Curb Stairs?: No Balance Posture: Fair Sitting - Static: Good Sitting - Dynamic: Good Standing - Static: Fair;+ Standing - Dynamic: Fair;- AM-PAC Score AM-PAC Inpatient Mobility Raw Score : 17 (06/05/22828) AM-PAC Inpatient T-Scale Score : 42.13 (06/05/22828) Mobility Inpatient CMS 0-100% Score: 50.57 (06/05/22828) Mobility Inpatient CMS G-Code Modifier : CK (06/05/22828) Goals Short Term Goals Time Frame for Short term goals: 5 visits Short term goal 1: Pt will complete bed mobility MOD I to increase independence. Short term goal 2: Pt will complete functional transfers with LRAD MOD I in preparation for gait. Short term goal 3: Pt will ambulate 100' with LRAD and MOD I to increase endurance and safety. Short term goal 4: Pt will complete 1-2 sets/ 5-10 reps LE exercises to increase strength and activity tolerance. Short term goal 5: Pt will complete 2 stairs with HR and SBA to enter home safely. Patient Goals Patient goals : To feel better and go home. Education Patient Education Education Given To: Patient Education Provided: Role of Therapy;Plan of Care;Precautions;Transfer Training;Equipment;Energy Conservation;Fall Prevention Strategies Education Method: Demonstration;Verbal Barriers to Learning: None Education Outcome: Verbalized understanding;Demonstrated understanding;Continued education needed Therapy Time Individual Concurrent Group Co-treatment Time In 748 Time Out 0759 Minutes 10 Krystle Bull PT Occupational Therapy Facility/Department: [facility] Occupational Therapy Initial Assessment Name: Woody Ni : 1960 Date of Service: 06/04/2022 Having reviewed the treatment plan and goals for this patient, I certify that the plan of care below is medically necessary and appropriate. Discharge Recommendations: Home with Home health OT, Home with assist PRN OT Equipment Recommendations Equipment Needed: No Patient Diagnosis(es): The primary encounter diagnosis was Syncope and collapse. Diagnoses of Hyponatremia and Acute alcoholic intoxication without complication (HCC) were also pertinent to this visit. Past Medical History: has a past medical history of Anxiety, Back pain, Diabetes mellitus (HCC), Gout, Hepatitis C, Hypertension, and Hypothyroidism. Past Surgical History: has a past surgical history that includes back surgery and laminectomy. Assessment Performance deficits / Impairments: Decreased functional mobility ;Decreased ADL status;Decreased endurance;Decreased balance;Decreased high-level IADLs Assessment: Pt in 06/03 with brief syncopal episodes, lightheadedness, dizziness, and some abodminal cramping. Pt reports that he has had prolonged nausea / vomiting prior to admission. He was previously IND for ADLs, IADLs, and functional transfers / mobility. He is currently CGA - SBA for ADLs, functional transfers / mobility without a device. He requires mildly increased time this date for rest breaks 2/2 increased nausea with multiple episodes of emesis this visit. He demos increased fatigue following bathroom level mobility. Pt would benefit from skilled OT services to address the above performance deficits. Recommend planned d/c for [facility] OT with assist PRN. Prognosis: Good Decision Making: Medium Complexity History: Pt in 06/03 with brief syncopal episodes, lightheadedness, dizziness, and some abodminal cramping. Exam: AM-PAC Assistance / Modification: CGA - SBA REQUIRES OT FOLLOW-UP: Yes Activity Tolerance Activity Tolerance: Patient limited by fatigue;Treatment limited secondary to medical complications (free text) Activity Tolerance Comments: increased nausea / emesis Plan Plan Times per Week: 4 visits Current Treatment Recommendations: Balance training, Functional mobility training, Endurance training, Safety education & training, Patient/Caregiver education & training, Equipment evaluation, education, & procurement, Self-Care / ADL, Home management training Plan Comment: POC and goals established in collaboration with pt. Restrictions Restrictions/Precautions Restrictions/Precautions: Fall Risk, General Precautions, Contact Precautions (Cdiff contact) Required Braces or Orthoses?: No Subjective General Chart Reviewed: Yes Patient assessed for rehabilitation services?: Yes Family / Caregiver Present: No Subjective Subjective: pleasant and cooperative General Comment Comments: OK to see per RN c/o 06/28 back pain at this time Social/Functional History Social/Functional History Lives With: Spouse Type of Home: House Home Layout: Two level, Able to Live on Main level with bedroom/bathroom Home Access: Stairs to enter without rails Entrance Stairs - Number of Steps: 2 Bathroom Shower/Tub: Tub/Shower unit Bathroom Equipment: (denies) Bathroom Accessibility: Accessible Home Equipment: Cane, Walker, rolling, Wheelchair-manual ADL Assistance: Independent Homemaking Assistance: Independent Homemaking Responsibilities: Yes Ambulation Assistance: Independent Transfer Assistance: Independent Active Environmental Field Office Manager: No Patient's Environmental Field Office Manager Info: Christie Objective Heart Rate: 95 Heart Rate Source: Monitor BP: 104/71 BP Location: Left Arm Patient Position: Supine MAP (Calculated): 82 Resp: 16 SpO2: 97 % O2 Device: None (Room air) Observation/Palpation Posture: Good Observation: tele intact Safety Devices Type of Devices: All fall risk precautions in place;Call light within reach;Gait belt;Patient at risk for falls;Left in bed;Nurse notified Restraints Restraints Initially in Place: No Balance Sitting: (SUP seated EOB) Standing: (CGA - SBA in standing, no device, no gross LOB) Gait Overall Level of Assistance: Contact-guard assistance (no device, no gross LOB, increased time required to complete. Mild instability noted, requiring CGA for safety during functional mobility.) Distance (ft): (to / from bathroom) Assistive Device: Gait belt Toilet Transfers Toilet - Technique: Ambulating Equipment Used: Grab bars Toilet Transfer: Stand by assistance Toilet Transfers Comments: no gross LOB, increased reliance on grab bars for bathroom level toileting. Increased time required to complete.No c/o dizziness with changes in position. AROM: Generally decreased, functional (~ 90 BUE shoulder flexion functionally observed) Strength: Generally decreased, functional (> +3/5 grossly observed with functional transfers) ADL Feeding: Modified independent Grooming: Stand by assistance UE Bathing: Stand by assistance LE Bathing: Contact guard assistance UE Dressing: Stand by assistance LE Dressing: Contact guard assistance Toileting: Contact guard assistance Additional Comments: Pt severely limited by increased nausea this date, requiring multiple rest breaks 2/2 multiple episodes of emesis. He was able to complete bathroom level toileting with CGA overall and no physical assist for pericare or pants management. Increased time required to complete. No gross LOB noted. Pt completed hand hygiene at sink as well as partial oral hygiene with use of mouth wash following episodes of emesis. No gross LOB in standing this date Bed mobility Sit to Supine: Stand by assistance Scooting: Stand by assistance Bed Mobility Comments: no gross LOB, HOB elevated, no c/o dizziness, continued increased nause and emesis with bed mobility. no assist required. Mildly extended time to complete Transfers Sit to stand: Stand by assistance Stand to sit: Stand by assistance Transfer Comments: no gross LOB, no use of device, good hand placement for push up from / reach back for seated surfaces. No c/o dizziness with changes in position. SBA for safety d/t mild instability Vision Vision: Within Functional Limits Hearing Hearing: Within functional limits Cognition Overall Cognitive Status: WFL Orientation Overall Orientation Status: Within Functional Limits Education Given To: Patient Education Provided: Role of Therapy;Plan of Care;ADL Adaptive Strategies;Transfer Training;Energy Conservation Education Method: Demonstration;Verbal Barriers to Learning: None Education Outcome: Verbalized understanding;Demonstrated understanding AM-PAC Score AM-[facility] Inpatient Daily Activity Raw Score: 19 (06/04/22 112) AM-PAC Inpatient ADL T-Scale Score : 40.22 (06/04/22 1120) ADL Inpatient CMS 0-100% Score: 42.8 (06/04/22 1120) ADL Inpatient CMS G-Code Modifier : CK (06/04/221119) Goals Short Term Goals Time Frame for Short term goals: 4 visits Short Term Goal 1: Pt will complete full body ADLs with MOD I Short Term Goal 2: Pt will complete bathroom level toileting with MOD I And LRD Short Term Goal 3: Pt will complete functional transfers / mobility with MOD I and LRD Short Term Goal 4: Pt will tolerate > 3 minutes of functional standing to increase endurance for ADLs and functional mobility with MOD I and LRD Patient Goals Patient goals : none stated Therapy Time Individual Concurrent Group Co-treatment Time In 0920 Time Out 0934 Minutes 14 Maicol Ortiz OT Follow-up at bedside regarding concern for large increase in sodium. Discussed with patient the risk for seizures. Also discussed need for frequent lab draws for monitoring, verbalized understanding. Continues to experience nausea and vomiting, has been experiencing symptoms since April. Scheduled for a GI follow-up in early June. IMS provider updated with discussion and EMR review. GI PCR recently sent to nursing, add-on for fecal occult blood order placed. This patient was seen as a hospital courtesy for improved patient care.Thank you for allowing me to participate in the medical care of your patient. Work Categories (check all that apply) [] Avoidable Day Recovered [] Query Response for [name] [] Discharge Planning [] Readmission Risk Addressed [] PSI / HAC reviewed [] Med Rec Addressed [] SOI Expected Impact [] ROM Expected Impact [] POA Clarified [] LIQUEFIER Avoided [] Nursing Function [x] Provider Function for [name] [x] Orders Placed [] Symptom Assessment [] Patient Experience [x] Patient / Caregiver Conversation Physical Therapy Facility/Department: [facility] Name: Woody Ni : 1960 Date of Service: 06/04/2022 Orders received for PT eval and treat. Chart review completed. RN cleared pt for PT but reports pt has been very nauseous. Attempted PT evaluation but pt reports intractible nausea and vomiting, not even able to keep medicine down. Pt unable to be encouraged to participate in therapy at this time. Will continue to follow and attempt at later time or date as schedule allows. Anna Monterroso PT Images from the original note were not included. Hospitalist Progress Note 06/04/2022 9:54 AM [phone]: Please perfect serve me for patient care issues. [phone]: Please page IMS night Hospitalist for any issues. Subjective: Admit Date: 06/03/2022 PCP: Jani Quezada MD Room#: 243/2431 Interval History: has not been able to tolerate any PO since yesterday, per patient has been vomiting intermittently for months and takes zofran with each meal or he cannot keep anything down. Discussed anemia and patient denies melena, hematochezia, hematemesis, hematuria or nose bleeds. ADULT ORAL NUTRITION SUPPLEMENT; PM Snack, AM Snack, HS Snack; Low Calorie/High Protein Oral Supplement ADULT DIET; Full Liquid; 4 carb choices (60 gm/meal) Patient Vitals for the past 96 hrs (Last 3 readings): Weight 06/03/22 1843 177 lb (80.3 kg) 24HR INTAKE/OUTPUT: Intake/Output Summary (Last 24 hours) at 06/04/2022 0954 Last data filed at 06/03/2022 2326 Gross per 24 hour Intake 2000 ml Output 925 ml Net 1075 ml Past Medical History: Diagnosis Date Anxiety Back pain Diabetes mellitus (HCC) Gout Hepatitis C Hypertension Hypothyroidism Medications: sodium chloride dextrose amLODIPine 10 mg Oral Daily colchicine 0.6 mg Oral Daily levothyroxine 50 mcg Oral Daily potassium chloride 10 mEq Oral Daily pravastatin 20 mg Oral Nightly pantoprazole 40 mg Oral Daily escitalopram 20 mg Oral Daily buPROPion 150 mg Oral QAM tamsulosin 0.4 mg Oral Daily sodium chloride flush 5-40 mL IntraVENous 2 times per day thiamine 100 mg Oral Daily folic acid 1 mg Oral Daily insulin lispro 0-8 Units SubCUTAneous TID WC insulin lispro 0-4 Units SubCUTAneous Nightly LABS: CBC: Recent Labs 06/03/22184906/04/22218 WBC 4.0 2.4* RBC 3.08* 2.33* HGB 10.6* 8.0* HCT 29.3* 23.4* MCV 95.1 100.5* RDW 42.4* 13.2 PLT 91* 72* BMP: Recent Labs 06/03/22184906/04/22218 NA 119* 130* K 4.2 3.4* CL 92* 108* CO2 14* 16* BUN 8 4* CREATININE 1.66* 1.04 GLUCOSE 114* 76 CALCIUM 8.6 6.3* ANIONGAP 13 6 LIVER PROFILE: Recent Labs 06/03/22184906/04/22218 AST 288* 177* ALT 227* 172* BILITOT 0.6 0.3 ALKPHOS 49 38 LABALBU 4.0 2.7* PROT 6.5 4.7* PT/INR: Recent Labs 06/04/22218 PROTIME 13.8* INR 1.3* CARDIAC ENZYMES: Recent Labs 06/03/221849 TROPONINI <0.012 Procalcitonin: No results found for: PROCAL COVID-19 PCR: No results for input(s): COVID19 in the last 72 hours. Objective: Vitals: BP (!) 141/79 Pulse 96 Temp (!) 96.7 F (35.9 C) (Temporal) Resp 18 Ht 5' 10" (1.778 m) Wt 177 lb (80.3 kg) SpO2 98% BMI 25.40 kg/m Pulse Ox: SpO2 Av.3 % Min: 96 % Max: 100 % Supplemental O2: General appearance: No acute distress and cooperative HEENT: atraumatic, EOM's intact, MATTHEW, poor dentition Respiratory: CTA with no wheeze, rhonchi or rales. No acute respiratory distress Cardiovascular: Regular rate and rhythm with normal S1/S2 without murmurs. Abdomen: Soft, no organomegaly appreciated, no pain induced with palpation, but patient points to RUQ and LUQ as area of discomfort Musculoskeletal: No clubbing, cyanosis or edema bilaterally. Full range of motion without deformity. Skin: Skin color normal, no rashes or lesions. Neurologic: Neurovascularly intact without any focal sensory/motor deficits. Assessment Hypovolemia Hyponatremia Nausea/vomiting Anemia DENNYS-resolved Hypotension Hypokalemia Alcohol use disorder HTN Hypothyroidism DM2 Hepatitis C Chronic back pain Plan Hyponatremia -corrected quickly with 2 liters of fluids inER -patient hemodynamically and neurologically stable - likely acute with hypovolemia resolution with fluids -due to rapid improvement will monitor for next 24 hours, recheck in AM -may need additional fluids if lowering further -may need nephrology tomorrow Hypovolemia/hypotension -BP's stable, orthostatics negative this AM -continue to encourage PO Nausea/vomiting -CT back in April 2022 with Question diffuse mural thickening along the greater curvature the stomach. -per patient has required zofran to tolerate food for years -lipase and LFT's ordered -GI consult for this and anemia -PRN zofran Anemia -no signs of bleeding per patient -GI consult -iron studies, b12 ordered -PPI ordered DENNYS-resolved Alcohol use disorder -no signs of alcohol withdrawal at this time, per patient he has never had symptoms -continue CIWA's -to note no PRN benzo's are ordered currently Hypokalemia Replete K HTN/HLD -hold amlodipine in setting of hypotension -continue statin Rest of home medications per regimen. -am labs, replace lytes prn -increase activity -DVT prophylaxis: [] Lovenox [] Heparin [x] SCDs [x] Encourage ambulation [] Already on Anticoagulation Advance Directive: No Order Discharge planning: TBD LEAH Lopez CNP Division of Hospitalist Medicine Inpatient Medical Services PAGER: Perfect serve Comprehensive Nutrition Assessment Type and Reason for Visit: Initial, Positive Nutrition Screen, Consult (weight loss, poor PO) Nutrition Recommendations/Plan: Modify diet to 60g CHO/meal, full liquid per MNT protocol. Pt still having intolerance issues of diet and is not currently appropriate for advancement to solid foods. Pt requesting to be placed back on IV fluids due to diet intolerance. Continue with Ensure high protein TID as ordered. Ensure High Protein provides 160 kcals, 16 g protein per serving. If placed on fluid restriction due to hyponatremia, do not count ONS towards fluid limit due to medical necessity and may also help improve sodium levels due to protein content. Hgb A1c pending at this time. If poor PO persists, modify ONS to a standard high calorie ONS instead to help meet adequate needs. (Ensure Plus High Protein) GI panel pending. Nausea/vomiting/diarrhea persists. Monitor intakes, wts, and labs. RD will follow. Malnutrition Assessment: Malnutrition Status: Severe malnutrition (06/04/22 0927) Context: Acute Illness Findings of the 6 clinical characteristics of malnutrition: Energy Intake: 50% or less of estimated energy requirements for 5 or more days Weight Loss: Greater than 7.5% over 3 months (20.3% wt loss in 3 months. From 222# (February 2022) to 177# CBW) Nutrition Assessment: Pt was admitted with complaints of dizziness and dehydration. 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 EMS reported that pt had a diastolic pressure in the 60s. Post rehydration with 500 ml fluid, BP increased to 95/60. Pt with noted hx of ETOH use, reportedly drinking 6 beers/day contributing to pt's hyponatremic status. Pt was seen by RD this AM and still with active nausea/vomiting, just post emesis this AM. Pt also still reporting diarrhea which has been ongoing for about three weeks now. Pt reported that he left a stool sample (diarrhea) in the bathroom. GI panel pending at this time. Pt is planned for EGD once pt's hyponatremia and ETOH withdrawal symptoms improve. Nutrition Related Findings: no edema; Na 130, K+ 3.4, Cl 108, BUN 4, corrected ca++ 7.1, Glucose 76, 114, Hgb 8, Hct 23.4, Hgb A1c pending, GI panel pending Wound Type: None Current Nutrition Intake & Therapies: Average Meal Intake: 0%, 1-25% Average Supplements Intake: (ONS just ordered; pt to receive) ADULT ORAL NUTRITION SUPPLEMENT; PM Snack, AM Snack, HS Snack; Low Calorie/High Protein Oral Supplement ADULT DIET; Full Liquid; 4 carb choices (60 gm/meal) Anthropometric Measures: Height: 5' 10" (177.8 cm) [place] Body Weight (IBW): 166 lbs (75 kg) Admission Body Weight: 177 lb (80.3 kg) Current Body Weight: 177 lb (80.3 kg), 106.6 % IBW. Weight Source: Stated Current BMI (kg/m2): 25.4 Usual Body Weight: 222 lb (100.7 kg) (February 2022) % Weight Change (Calculated): -20.3 Weight Adjustment For: No Adjustment BMI Categories: Overweight (BMI 25.0-29.9) Estimated Daily Nutrient Needs: Energy Requirements Based On: Kcal/kg Weight Used for Energy Requirements: Current Energy (kcal/day): 3738-0420 kcals (25-30) Weight Used for Protein Requirements: Current Protein (g/day): 96-112 (1.2-1.4) Fluid (ml/day): per MD- hyponatremic Nutrition Diagnosis: Severe malnutrition related to inadequate protein-energy intake, altered GI function, psychological cause or life stress as evidenced by poor intake prior to admission, weight loss 7.5% in 3 months Altered GI function related to acute injury/trauma as evidenced by GI abnormality, nausea, vomiting, diarrhea, lab values Nutrition Interventions: Food and/or Nutrient Delivery: Modify Current Diet, Continue Oral Nutrition Supplement Nutrition Education/Counseling: No recommendation at this time Coordination of Nutrition Care: Continue to monitor while inpatient Plan of Care discussed with: Pt Goals: Goals: PO intake 50% or greater, by next RD assessment Nutrition Monitoring and Evaluation: Behavioral-Environmental Outcomes: None Identified Food/Nutrient Intake Outcomes: Diet Advancement/Tolerance, Food and Nutrient Intake, Supplement Intake Physical Signs/Symptoms Outcomes: Biochemical Data, GI Status, Diarrhea, Nausea or Vomiting, Fluid Status or Edema, Weight, Skin, Nutrition Focused Physical Findings Discharge Planning: Continue Oral Nutrition Supplement Kristine George RD, LD Contact: *[phone] documented in this encounter [facility] Work Phone: 05-15-2022 Hospital Discharge instructions Hany Ybarra MD - 05/15/2022 6:07 PM EDT Drink plenty of fluids. Continue your prescriptions as previously as prescribed. Add the Zofran for nausea and vomiting if needed. Follow-up with your doctor for the recommended upper and lower endoscopy. For severe or worsening symptoms, return to the ER! documented in this encounter [facility] Work Phone: Evaluation note Diagnosis Acute exacerbation of chronic low back pain- Primary Non-intractable vomiting with nausea, unspecified vomiting type Dehydration documented in this encounter [facility] Work Phone: Evaluation note* Diagnosis Hypovolemia- Primary Syncope and collapse Hyponatremia Hyposmolality and/or hyponatremia Acute alcoholic intoxication without complication (HCC) Spinal stenosis of lumbar region, unspecified whether neurogenic claudication present Chronic alcoholic hepatitis Acute alcoholic hepatitis Diabetes (HCC) Postural dizziness with presyncope Severe malnutrition (HCC) Nutritional marasmus Intractable nausea and vomiting Persistent vomiting documented in this encounter [facility] Phone: Evaluation note* Diagnosis Abnormal CT scan, stomach- Primary Nonspecific (abnormal) findings on radiological and other examination of gastrointestinal tract History of esophageal varices Personal history of other diseases of digestive system Diarrhea, unspecified type History of hepatitis C Personal history of other infectious and parasitic disease Abnormal results of liver function studies Nonspecific abnormal results of liver function study documented in this encounter [facility] note* Diagnosis Hydrops of gallbladder- Primary RUQ pain Abdominal pain, right upper quadrant documented in this encounter [facility] note* Diagnosis History of hepatitis C Personal history of other infectious and parasitic disease documented in this encounter [facility] note* Diagnosis Ascites due to alcoholic cirrhosis (CMS/HCC) (HCC)- Primary documented in this encounter [facility] note* Diagnosis Encounter for postoperative care- Primary Gallbladder sludge 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) documented in this encounter [facility] note* Diagnosis Hyponatremia- Primary Hyposmolality and/or hyponatremia Hyponatremia Hyposmolality and/or hyponatremia Alcohol dependence with unspecified alcohol-induced disorder (HCC) Chronic pain syndrome Myalgia Unspecified myalgia and myositis Acute kidney injury (CMS/HCC) (HCC) documented in this encounter [facility] note* Diagnosis Alcohol withdrawal syndrome without complication (HCC)- Primary Alcohol use disorder Alcohol withdrawal syndrome without complication (HCC) Severe alcohol use disorder (HCC) Severe malnutrition (CMS/HCC) (HCC) Nutritional marasmus documented in this encounter [facility] note* Diagnosis Hyponatremia- Primary Hyposmolality and/or hyponatremia Hyponatremia Hyposmolality and/or hyponatremia [place] (acute kidney injury) (CMS/HCC) (HCC) Severe malnutrition (CMS/HCC) (HCC) Nutritional marasmus documented in this encounter [facility] note* Diagnosis Hyponatremia- Primary Hyposmolality and/or hyponatremia Hyponatremia Hyposmolality and/or hyponatremia Severe alcohol use disorder (HCC) Severe malnutrition (CMS/HCC) (HCC) Nutritional marasmus Recurrent falls [facility]* Diagnosis Alcohol induced acute pancreatitis without necrosis or infection- Primary Alcohol induced acute pancreatitis without necrosis or infection Alcohol use disorder, severe, dependence (HCC) Nausea and vomiting, unspecified vomiting type Chronic pain syndrome Alcohol withdrawal syndrome with complication (HCC) Repeated falls Severe alcohol use disorder (HCC) Moderate malnutrition (CMS/HCC) (HCC) documented [facility]* Diagnosis Severe alcohol use disorder (HCC) documented in this encounter [facility]* Diagnosis Alcohol withdrawal syndrome without complication (HCC)- Primary Alcohol withdrawal syndrome without complication (HCC) COVID-19 Leg edema Edema Other pancytopenia (CMS/HCC) (HCC) Other pancytopenia Alcoholic cirrhosis of liver without ascites (CMS/HCC) (HCC) 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, recurrent episode, mild Other pancytopenia (CMS/HCC) (HCC) Other pancytopenia documented in this encounter [facility]* Diagnosis Hyponatremia- Primary Hyposmolality and/or hyponatremia Hyponatremia Hyposmolality and/or hyponatremia Alcoholic intoxication without complication (CMS/HCC) (HCC) Alcohol withdrawal syndrome without complication (HCC) High anion gap metabolic acidosis documented in this encounter [facility]* Diagnosis Syncope, unspecified syncope type- Primary Elevated lactic acid level documented in this encounter [facility]* Diagnosis Alcohol use disorder- Primary Alcohol use disorder documented in this encounter [facility]* Diagnosis Metabolic acidosis, increased anion gap- Primary Metabolic acidosis, increased anion gap Ketosis (HCC) Acidosis Alcohol use Other problems related to lifestyle Hypokalemia Hypopotassemia Hypomagnesemia Disorders of magnesium metabolism documented in this encounter [facility]* Diagnosis Right upper quadrant abdominal pain- Primary Gallbladder sludge Alcoholic cirrhosis of liver without ascites (CMS/HCC) (HCC) documented in this encounter [facility]* Diagnosis Preop examination- Primary Unspecified pre-operative examination Right upper quadrant pain Abdominal pain, right upper quadrant Other specified diseases of gallbladder documented in this encounter [facility]* Diagnosis Acute kidney injury (CMS/HCC) (HCC)- Primary Acute kidney injury (CMS/HCC) (HCC) [place] (acute kidney injury) (CMS/HCC) (HCC) [place] (acute kidney injury) (CMS/HCC) (HCC) Right upper quadrant pain Abdominal pain, right upper quadrant Other specified diseases of gallbladder documented in this encounter [facility]* Diagnosis Gallbladder sludge- Primary RUQ pain Abdominal pain, right upper quadrant Right upper quadrant pain Abdominal pain, right upper quadrant Other specified diseases of gallbladder RUQ pain Abdominal pain, right upper quadrant Acute on chronic cholecystitis 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) [facility] Attachments The following attachments cannot be sent through Care Everywhere. * Alcohol Withdrawal [facility] (Portuguese[facility] Attachments The following attachments cannot be sent through Care Everywhere. * Syncope (Fainting) (Portuguese) [facility] Out[facility] Procedure (Routine) - Pending Review Specialty Diagnoses / Procedures Referred By Magalie lawson Referred To Contact [facility] Diagnoses Abnormal CT scan, stomach History of esophageal varices Procedures EGD DIAGNOSTIC ESOPHAGOGASTRODUODENOS COPY TRANSORAL DIAGNOSTIC Munira Staley PA-C [address] [facility] [place] [address] [facility] [address] [place] [address] Referral ID Status Reason Start Date Expiration Date Visits Requested Visits Authorized [id number] Pending Review Auto-Generat ed Referral 06/25/2022 06/25/2023 1 1 * Diagnostic Procedure Only (Routine) - Pending Review Specialty Diagnoses / Procedures Referred By Magalie lawson Referred To Contact US IMAGING Diagnoses History of hepatitis C Procedures US ABD RT UPPER QUADRANT US ABDOMINAL REAL TIME W/IMAGE LIMITED Munira Staley PA-C [address] [facility] [place] [address] Us Imaging Referral ID Status Reason Start Date Expiration Date Visits Requested Visits Authorized [id number] Pending Review Auto-Generat ed Referral 06/25/2022 07/25/2023 1 1 [facility] Diagnostic Procedure Only (Routine) - Closed Specialty Diagnoses / Procedures Referred By Magalie t Referred To Contact US IMAGING Diagnoses History of hepatitis C Procedures US ABD RT UPPER QUADRANT US ABDOMINAL REAL TIME W/IMAGE LIMITED Munira Staley PA-C [address] [place] [address] Us Imaging Referral ID Status Reason Start Date Expiration Date V isits Requested Visits Authorized [id number] Closed Auto-Generate d Referral 06/25/2022 07/25/2023 1 1 [facility] Summary Purpose Family History No Family History Records FoundNo Family History Records FoundNo Family History Records FoundNo Family History Records FoundNo Family History Records FoundNo Family History Records FoundNo Family History Records Found Advance Directives No Advanced Directives Records Found Date Activated Date Inactivated Comments 07/23/2024 4:49 AM 08/01/2024 3:14 PM Date Activated Date Inactivated Comments 07/10/2024 4:49 PM 07/21/2024 3:52 PM Date Activated Date Inactivated Comments 07/05/2024 1:35 AM 07/10/2024 3:58 PM Date Activated Date Inactivated Comments 04/22/2024 10:46 PM 04/30/2024 5:39 PM Date Activated Date Inactivated Comments 01/15/2024 6:43 PM 01/26/2024 7:33 PM Documents on File Type Date Recorded 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 Advance Directives and Living Will Power of Search Engine Optimization Consultant Documents on File Type Date Recorded 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 ACP-Advance Directive ACP-Power of Search Engine Optimization Consultant Latest Code Status on File Code Status Date Activated Date Inactivated Comments Full Code 12/22/2022 9:08 PM 12/25/2022 12:54 PM Latest Code Status on File Code Status Date Activated Date Inactivated Comments Full Code 01/05/2023 7:49 AM 01/05/2023 2:31 PM Code Status History Code Status Date Activated Date Inactivated Comments Full Code 12/22/2022 9:08 PM 12/25/2022 12:54 PM Latest Code Status on File Code Status Date Activated Date Inactivated Comments Full Code 02/10/2023 11:16 PM 02/14/2023 4:04 PM Code Status History Code Status Date Activated Date Inactivated Comments Full Code 01/05/2023 7:49 AM 01/05/2023 2:31 PM Full Code 12/22/2022 9:08 PM 12/25/2022 12:54 PM Latest Code Status on File Code Status Date Activated Date Inactivated Comments Full Code 04/02/2023 7:36 PM Code Status History Code Status Date Activated Date Inactivated Comments Full Code 02/10/2023 11:16 PM 02/14/2023 4:04 PM Full Code 01/05/2023 7:49 AM 01/05/2023 2:31 PM Full Code 12/22/2022 9:08 PM 12/25/2022 12:54 PM Latest Code Status on File Code Status Date Activated Date Inactivated Comments Full Code 04/02/2023 7:36 PM 04/07/2023 3:18 PM Latest Code Status on File Code Status Date Activated Date Inactivated Comments Full Code 04/10/2023 10:32 AM 04/15/2023 4:01 PM Code Status History Code Status Date Activated Date Inactivated Comments Full Code 04/02/2023 7:36 PM 04/07/2023 3:18 PM Full Code 02/10/2023 11:16 PM 02/14/2023 4:04 PM Full Code 01/05/2023 7:49 AM 01/05/2023 2:31 PM Full Code 12/22/2022 9:08 PM 12/25/2022 12:54 PM Latest Code Status on File Code Status Date Activated Date Inactivated Comments Full Code 04/10/2023 10:32 AM 04/15/2023 4:01 PM Code Status History Code Status Date Activated Date Inactivated Comments Full Code 04/02/2023 7:36 PM 04/07/2023 3:18 PM Full Code 02/10/2023 11:16 PM 02/14/2023 4:04 PM Full Code 01/05/2023 7:49 AM 01/05/2023 2:31 PM Full Code 12/22/2022 9:08 PM 12/25/2022 12:54 PM Latest Code Status on File Code Status Date Activated Date Inactivated Comments Full Code 06/22/2023 5:38 AM Code Status History Code Status Date Activated Date Inactivated Comments Full Code 04/10/2023 10:32 AM 04/15/2023 4:01 PM Full Code 04/02/2023 7:36 PM 04/07/2023 3:18 PM Full Code 02/10/2023 11:16 PM 02/14/2023 4:04 PM Full Code 01/05/2023 7:49 AM 01/05/2023 2:31 PM Latest Code Status on File Code Status Date Activated Date Inactivated Comments Full Code 06/30/2023 9:09 PM 07/05/2023 5:03 PM Code Status History Code Status Date Activated Date Inactivated Comments Full Code 06/22/2023 5:38 AM 06/26/2023 11:35 PM Full Code 04/10/2023 10:32 AM 04/15/2023 4:01 PM Full Code 04/02/2023 7:36 PM 04/07/2023 3:18 PM Full Code 02/10/2023 11:16 PM 02/14/2023 4:04 PM Latest Code Status on File Code Status Date Activated Date Inactivated Comments Full Code 10/20/2023 8:47 PM 10/27/2023 3:26 PM Code Status History Code Status Date Activated Date Inactivated Comments Full Code 06/30/2023 9:09 PM 07/05/2023 5:03 PM Full Code 06/22/2023 5:38 AM 06/26/2023 11:35 PM Full Code 04/10/2023 10:32 AM 04/15/2023 4:01 PM Full Code 04/02/2023 7:36 PM 04/07/2023 3:18 PM Latest Code Status on File Code Status Date Activated Date Inactivated Comments Full Code 01/15/2024 6:43 PM 01/26/2024 7:33 PM Code Status History Code Status Date Activated Date Inactivated Comments Full Code 10/20/2023 8:47 PM 10/27/2023 3:26 PM Full Code 06/30/2023 9:09 PM 07/05/2023 5:03 PM Full Code 06/22/2023 5:38 AM 06/26/2023 11:35 PM Full Code 04/10/2023 10:32 AM 04/15/2023 4:01 PM Date Activated Date Inactivated Comments 01/15/2024 6:43 PM 01/26/2024 7:33 PM Date Activated Date Inactivated Comments 10/20/2023 8:47 PM 10/27/2023 3:26 PM Date Activated Date Inactivated Comments 06/30/2023 9:09 PM 07/05/2023 5:03 PM Date Activated Date Inactivated Comments 06/22/2023 5:38 AM 06/26/2023 11:35 PM Date Activated Date Inactivated Comments 04/10/2023 10:32 AM 04/15/2023 4:01 PM Date Activated Date Inactivated Comments 04/22/2024 10:46 PM 04/30/2024 5:39 PM Date Activated Date Inactivated Comments 01/15/2024 6:43 PM 01/26/2024 7:33 PM Date Activated Date Inactivated Comments 10/20/2023 8:47 PM 10/27/2023 3:26 PM Date Activated Date Inactivated Comments 06/30/2023 9:09 PM 07/05/2023 5:03 PM Date Activated Date Inactivated Comments 06/22/2023 5:38 AM 06/26/2023 11:35 PM Date Activated Date Inactivated Comments 07/05/2024 1:35 AM Date Activated Date Inactivated Comments 04/22/2024 10:46 PM 04/30/2024 5:39 PM Date Activated Date Inactivated Comments 01/15/2024 6:43 PM 01/26/2024 7:33 PM Date Activated Date Inactivated Comments 10/20/2023 8:47 PM 10/27/2023 3:26 PM Date Activated Date Inactivated Comments 06/30/2023 9:09 PM 07/05/2023 5:03 PM Date Activated Date Inactivated Comments 07/10/2024 4:49 PM Date Activated Date Inactivated Comments 07/05/2024 1:35 AM 07/10/2024 3:58 PM Date Activated Date Inactivated Comments 04/22/2024 10:46 PM 04/30/2024 5:39 PM Date Activated Date Inactivated Comments 01/15/2024 6:43 PM 01/26/2024 7:33 PM Date Activated Date Inactivated Comments 10/20/2023 8:47 PM 10/27/2023 3:26 PM Date Activated Date Inactivated Comments 07/23/2024 4:49 AM Latest Code Status on File Code Status Date Activated Date Inactivated Comments Full Code 12/22/2022 9:08 PM Latest Code Status on File Code Status Date Activated Date Inactivated Comments Full Code 01/05/2023 7:49 AM 01/05/2023 2:31 PM Code Status History Code Status Date Activated Date Inactivated Comments Full Code 12/22/2022 9:08 PM 12/25/2022 12:54 PM Discharge Instructions * Instructions* Mack Palacios PA-C - 06/25/2020 Follow-up with urology within the week. Follow-up with her primary doctor within 2-3 days for reevaluation and further examination. Return to the Emergency Department if symptoms worsen or do not improve. You will be notified of her pending results. documented in this encounter Assessments Diagnosis Right flank pain Abdominal pain, unspecified site Penile discharge Urethral discharge Malaise and fatigue Other malaise and fatigue Nausea Nausea alone Reason for Referral Specialty Diagnoses / Procedures Referred By Contac t Referred To Contact General Surgery Diagnoses Hydrops of gallbladder RUQ pain Procedures CONSULT TO GENERAL SURGERY OFFICE/OUTPATIENT [facility] 60-74 MINUTES Munira Staley PA-C [address] [place] [address] Referral ID Status Reason Start Date Expiration Date Visits Requested Visits Authorized [id number] Authorized PCP Requested Referral 07/08/2022 07/08/2023 1 1 Specialty Diagnoses / Procedures Referred By Contac t Referred To Contact eCd Koenig MD [address], [address] [address] Referral ID Status Reason Start Date Expiration Date Visits Re quested Visits Authorized [id number] Closed 1 1 Specialty Diagnoses / Procedures Referred By Contac t Referred To Contact Genna Castro DO [address] [place] [address] Referral ID Status Reason Start Date Expiration Date Visits Re quested Visits Authorized [id number] Closed 1 1 Additional Source Comments (unrecognized sect ion and content) No Status Records FoundNo Status Records FoundNo Status Records FoundNo Status Records FoundNo Status Records FoundNo Status Records FoundNo Status Records Found INFORMATION SOURCE (unrecogn ized section and content) DATE CREATED AUTHOR 04/14/2018 [facility] DATE CREATED AUTHOR AUTHOR'S ORGANIZ ATION 07/16/2022 [facility] DATE CREATED AUTHOR AUTHOR'S ORGANIZ ATION 10/25/2023 [facility] DATE CREATED AUTHOR AUTHOR'S ORGANIZ ATION 12/30/2023 [facility] DATE CREATED AUTHOR AUTHOR'S ORGANIZ ATION 04/20/2024 [facility] DATE CREATED AUTHOR AUTHOR'S ORGANIZ ATION [facility]/20[facility] DATE CREATED AUTHOR AUTHOR'S ORGANIZ ATION 12/18/2024 [facility] Reason for Visit (unrecogniz ed section and content) Reason Comments Flank Pain Right sided flank pa in that started around 06/11/2020, pt denies any events that would of caused or related to complaint Penile Discharge States discharge is yellow, creamy and foul smelling, pt denies any events that would of caused or related to complaint Reason Comments Flank Pain Emesis Reason Comments Loss of Consciousness Reason Comments Nausea & Vomiting Gas, stomach upset. EGD 05/06/22 at [facility] Reason Comments Results Reason Comments Radiology US Specialty Diagnoses / Procedures Referred By Contac t Referred To Contact US IMAGING Diagnoses History of hepatitis C Procedures US ABD RT UPPER QUADRANT US ABDOMINAL REAL TIME W/IMAGE LIMITED Munira Staley PA-C [address] [place] [address] Us Imaging Referral ID Status Reason Start Date Expiration Date V isits Requested Visits Authorized [id number] Closed Auto-Generate d Referral 06/25/2022 07/25/2023 1 1 Reason Comments Results Reason Comments Post-op Problem Leaking fluid from i ncision site Reason Comments Post-op ALS 2 WK POST-OP LAP SHU POSS OPEN Reason Comments Vomiting Diarrhea Specialty Diagnoses / Procedures Referred By Contac t Referred To Contact Diagnoses Hyponatremia Alcohol dependence with unspecified alcohol-induced disorder (HCC) Procedures . Kacie Benz, DO [address] [place] [address] [facility] [address] [place] [address] Referral ID Status Reason Start Date Expiration Date Visits Re quested Visits Authorized [id number] 1 1 Reason Onset Date Comments Hospital Follow-up 02/16/2023 Reason Onset Date Comments Hospital Follow-up 04/05/2023 Reason Comments Alcohol Problem Specialty Diagnoses / Procedures Referred By Contac t Referred To Contact Diagnoses Alcohol withdrawal syndrome without complication (HCC) Alcohol use disorder Procedures . Maxwell Hinson MD [address] [place] [address] [facility] [address] [facility] [address] [place] [address] Referral ID Status Reason Start Date Expiration Date Visits Re quested Visits Authorized [id number] 1 1 Reason Comments Abdominal Pain Specialty Diagnoses / Procedures Referred By Contac t Referred To Contact Diagnoses Hyponatremia Procedures E87.1 Rhiannon Barker MD [address] [facility] [address] [place] [address] [facility] [address] [place] [address] Referral ID Status Reason Start Date Expiration Date Visits Re quested Visits Authorized [id number] 1 1 Reason Onset Date Comments Cancelled Appointment 05/26/2023 05/26/2023 at 08;00 Reason Onset Date Comments Advice Only 01/12/2023 Reason Comments Fall Specialty Diagnoses / Procedures Referred By Contac t Referred To Contact Diagnoses Hyponatremia Procedures . Kacie Benz DO [address] [place] [address] [facility] [address] [place] [address] Referral ID Status Reason Start Date Expiration Date Visits Re quested Visits Authorized [id number] 1 1 Reason Comments Vomiting Pt comes to the ed t [facility] due to vomiting pts family states he is a heavy drinker pt is positive ETOH aprox 18 beers pt states he would like to speak to someone about resources to quit drinking pt is nauseous in triage. Specialty Diagnoses / Procedures Referred By Contac t Referred To Contact Diagnoses Alcohol induced acute pancreatitis without necrosis or infection Procedures . Kacie Benz DO [address] [place] [address] [facility] [address] [place] [address] Referral ID Status Reason Start Date Expiration Date Visits Re quested Visits Authorized [id number] 1 1 Reason Comments Vomiting Withdrawal Alcohol Specialty Diagnoses / Procedures Referred By Contac t Referred To Contact Diagnoses Alcohol withdrawal syndrome without complication (HCC) Procedures .. Hayes Scott MD [address] [place] [address] [facility] [address] [place] [address] Referral ID Status Reason Start Date Expiration Date Visits Re quested Visits Authorized [id number] 1 1 Reason Onset Date Comments Med Refill 02/26/2024 Reason Comments Alcohol Intoxication Pt requesting alcoh ol detox, states he drinking an 18 pack of beer daily. Pt states two recent periods of sobriety, one of 51 days and one of 59. Pt states he is depressed secondary to father passing two weeks ago and leaving him. Pt denies SI, HI, AVH. Pt denies seizures with detox. Reason Comments Weakness, Gen Alcoholic, fell down and hit his head cut above right eye Reason Comments Alcohol Intoxication Pt presents with sq uad for etoh intoxication. Per pt, he has consumed 24 beers this afternoon, which he reports is his normal for what he reports "for the last 50 years". Pt denies any cp, sob, n/v/d or headache. Pt also denies n/v/d. Pt has no other complaints or concerns at this time. Last drink at 1842. Specialty Diagnoses / Procedures Referred By Contac t Referred To Contact Diagnoses Alcohol use disorder Procedures - Kiel King MD [address] [place] [address] [facility] [address] [place] [address] Referral ID Status Reason Start Date Expiration Date Visits Re quested Visits Authorized [id number] 1 1 Reason Comments Dizziness Vomiting Alcohol Problem Specialty Diagnoses / Procedures Referred By Contac t Referred To Contact Diagnoses Ketosis (HCC) Alcohol use Metabolic acidosis, increased anion gap Procedures . 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 Reason Onset Date Comments Surgery Scheduling 11/20/2022 Reason Comments Vomiting Specialty Diagnoses / Procedures Referred By Contac t Referred To Contact Diagnoses DENNYS (acute kidney injury) (CMS/HCC) (HCC) Acute kidney injury (CMS/HCC) (HCC) Procedures N17.9 Kacie Benz, DO [address] [place] [address] [facility] Telemetry [address] [place] [phone] Referral ID Status Reason Start Date Expiration Date Visits Re quested Visits Authorized [id number] 1 1 Reason Onset Date Comments Hospital Follow-up 12/27/2022 Specialty Diagnoses / Procedures Referred By Contac t Referred To Contact Diagnoses Right upper quadrant pain Other specified diseases of gallbladder Right upper quadrant pain [R10.11] Other specified diseases of gallbladder [K82.8] Procedures TX LAPAROSCOPY SURG CHOLECYSTECTOMY LAPAROSCOPIC CHOLECYSTECTOMY, POSSIBLE OPEN Ruperto Fang MD [address] [place] [address] [address] [place] [address] [facility] Main Or [address] [place] [address] Referral ID Status Reason Start Date Expiration Date Visits Re quested Visits Authorized [id number] 1 1 Reason Onset Date Comments Sinusitis 10/03/2024 Ordered Prescriptions (unrec ognized section and content) Prescription Sig Dispensed Refills Start Date End Da te ondansetron (ZOFRAN-ODT) [address] 1-2 tablets under the tongue 3 times daily as needed for Nausea or Vomiting 20 tablet 0 05/15/2022 Prescription Sig Dispensed Refills Start Date End Da te oxyCODONE-acetaminophen (PERCOCET) 5-325 MG per tabletIndications:Spinal stenosis of lumbar region, unspecified whether neurogenic claudication present Take 2 tablets by mouth every 6 hours as needed for Pain for up to 1 day. Intended supply: 5 days. Take lowest dose possible to manage pain 20 tablet 0 06/06/2022 06/07/2022 thiamine 100 MG tablet Take 1 tablet by mouth daily 30 tablet 0 06/07/2022 levothyroxine (SYNTHROID) 50 MCG tablet Take 1 tablet by mouth Daily 30 tablet 0 06/07/2022 folic acid (FOLVITE) 1 MG tablet Take 1 tablet by mouth daily 30 tablet 0 06/07/2022 Scheduled Active and Recently Administ ered Medications (unrecognized section and content) Medication Order 05/13/2022 05/14/2022 05/15/2022 0.9 % sodium chloride bolus (COMPLETED) 1,000 mL (12.5 mL/kg), IntraVENous, at 983.6 mL/hr, Administer over 61 Minutes, ONCE, On Mariela 05/15/22 at 1710, For 1 dose 1716 (New Bag - Prov ider: Emilee Gonzalez RN)183 (Stopped - Provider: Emilee Gonzalez RN) morphine sulfate (PF) injection 4 mg (COMPLETED) 4 mg, IntraVENous, ONCE, 1 dose, On Mariela 05/15/22 at 1710, If oral and IV narcotics ordered, use oral first and only use IV if oral is ineffective or cannot take oral. Do Not give oral and IV within 1 hour of each other unless specifically ordered. 171 (Given - Provid er: Emilee Gonzalez RN) ondansetron (ZOFRAN) injection 4 mg (COMPLETED) 4 mg, IntraVENous, ONCE, 1 dose, On Mariela 05/15/22 at 1710 171 (Given - Provid er: Emilee Gonzalez RN) sodium chloride flush 0.9 % injection 3 mL(Linked Group 1) 3 mL, IntraVENous, EVERY 8 HOURS, First dose on Mariela 05/15/22 at 1710, Until Discontinued, Flush line with 3-5 mL 172 (Given - Provid er: Emilee Gonzalez RN) Linked Groups Order Group 1: Saline lock IV (COMPLETED) Routine, CONTINUOUS, Starting on Mariela 05/15/22 at 1715, Until Specified And sodium chloride flush 0.9 % injection 3 mLJump to med 3 mL, IntraVENous, EVERY 8 HOURS, First dose on Mariela 05/15/22 at 1710, Until Discontinued
Flush line with 3-5 mL
Scheduled Medication Order 06/04/2022 06/05/2022 06/06/2022 amLODIPine (NORVASC) tablet 10 mg 10 mg, Oral, DAILY, First dose on Thu06/04/22 at 0900, Until Discontinued 120 (Not Given - Provider: Gibran Mahajan RN - Reason: Other - Comment: ok to hold per [facility])1236 (Held by provider - Provider: LEAH Lopez CNP - Reason: Other - Comment: hypotension) 0900 (Automatically Held - Provider: LEAH Lopez CNP) 0900 (Automatically Held - Provider: LEAH Lopez CNP) buPROPion (WELLBUTRIN XL) extended release tablet 150 mg 150 mg, Oral, EVERY MORNING, First dose on Thu06/04/22 at 0900, Until Discontinued, Do not crush or break. 0759 (Given - Provider: Gibran Mahajan RN) 0817 (Given - Provider: Gibran Mahajan RN) 1207 (Given - Provider: Debora Pat RN) cloNIDine (CATAPRES) tablet 0.1 mg 0.1 mg, Oral, 2 TIMES DAILY, First dose on Mariela 06/05/22 at 1830, Until Discontinued 2030 (Given - Provider: Monica Gonzalez LPN) 1206 (Given - Provider: Debora Pat RN)2100 (Due) colchicine (COLCRYS) tablet 0.6 mg 0.6 mg, Oral, DAILY, First dose on Thu06/04/22 at 0900, Until Discontinued 0758 (Given - Provider: Gibran Mahajan RN) 0817 (Given - Provider: Gibran Mahajan RN) 1207 (Given - Provider: Debora Pat RN) escitalopram (LEXAPRO) tablet 20 mg 20 mg, Oral, DAILY, First dose on Thu06/04/22 at 0900, Until Discontinued 0758 (Given - Provider: Gibran Mahajan RN) 0816 (Given - Provider: Gibran Mahajan RN) 1208 (Given - Provider: Debora Pat RN) folic acid (FOLVITE) tablet 1 mg 1 mg, Oral, DAILY, First dose on Thu06/04/22 at 0900, Until Discontinued 0839 (Given - Provider: Gibran Mahajan RN) 0816 (Given - Provider: Gibran Mahajan RN) 1207 (Given - Provider: Debora Pat RN) insulin lispro (HUMALOG) injection vial 0-4 Units 0-4 Units, SubCUTAneous, NIGHTLY, First dose on Thu06/04/22 at 2100, Until Discontinued, If continuous tube feedings/TPN/NPO, give correction dose based on result, no reduction in dose. If eating or bolus tube feeding: Corrective Bedtime Algorithm Glucose: Dose: 70-299 No Insulin 300-349 4 Units Over 349 4 Units and notify physician 210 (Not Given - Provider: Monica Gonzalez LPN - Reason: Order parameters not met) 2030 (Not Given - Provider: Monica Gonzalez LPN - Reason: Order parameters not met) 2100 (Due) insulin lispro (HUMALOG) injection vial 0-8 Units 0-8 Units, SubCUTAneous, 3 TIMES DAILY WITH MEALS, First dose on Thu06/04/22 at 0800, Until Discontinued, Medium Dose Corrective Algorithm Glucose: Dose: 70-199 No Insulin 200-249 2 Units 250-299 4 Units 300-349 6 Units Over 349 8 Units and notify physician 0733 (Not Given - Provider: Gibran Mahajan RN - Reason: Order parameters not met)1234 (Not Given - Provider: Gibran Mahajan RN - Reason: Order parameters not met)1640 (Not Given - Provider: Gibran Mahajan RN - Reason: Order parameters not met) 0742 (Not Given - Provider: Gibran Mahajan RN - Reason: Order parameters not met)1235 (Not Given - Provider: Gibran Mahajan RN - Reason: Patient not available)1639 (Not Given - Provider: Gibran Mahajan RN - Reason: Order parameters not met) 0911 (Not Given - Provider: Debora Pat RN - Reason: Order parameters not met)1213 (Not Given - Provider: Debora Pat RN - Reason: Order parameters not met)1700 (Due) levothyroxine (SYNTHROID) tablet 50 mcg 50 mcg, Oral, DAILY, First dose on Thu06/04/22 at 0900, Until Discontinued, Tube feeding (TF) interaction, obtain physician order to manage, recommend holding TF for 30 minutes before and after dose. 0758 (Given - Provider: Gibran Mahajan RN) 0522 (Given - Provider: Monica Gonzalez LPN) 0511 (Given - Provider: Monica Gonzalez LPN) lidocaine 4 % external patch 1 patch 1 patch, TransDERmal, Administer over 12 Hours, DAILY, First dose on Thu06/04/22 at 1645, Apply patch to back. Patch may remain in place for up to 12 hours in any 24 hour period. 1634 (Patch Applied - Provider: Gibran Mahajan RN) 0531 (Patch Removed - Provider: Monica Gonzalez LPN)0820 (Patch Applied - Provider: Gibran Mahajan RN)2030 (Patch Removed - Provider: Monica Gonzalez LPN) 1207 (Not Given - Provider: Debora Pat RN - Reason: Patient/family refused) ondansetron (ZOFRAN) injection 8 mg (COMPLETED) 8 mg, IntraVENous, ONCE, 1 dose, On Thu06/04/22 at 0115 0111 (Given - Provider: Sarina Pulido RN) ondansetron (ZOFRAN) injection 8 mg 8 mg, IntraVENous, EVERY 8 HOURS, First dose (after last modification) on Thu06/06/22 at 0100, Until Discontinued 0120 (Given - Provider: Arabella Luke RN)1210 (Given - Provider: Debora Pat RN)1700 (Due - Provider: Yazmin Bermudez [facility]) pantoprazole (PROTONIX) tablet 40 mg 40 mg, Oral, DAILY, First dose on Thu06/04/22 at 0900, Until Discontinued, Do not crush or break. 0758 (Given - Provider: Gibran Mahajan RN) 0817 (Given - Provider: Gibran Mahajan RN) 1207 (Given - Provider: Debora Pat RN) potassium bicarb-citric acid (EFFER-K) effervescent tablet 40 mEq (COMPLETED) 40 mEq, Oral, ONCE, 1 dose, On Thu06/04/22 at 0745, Do not chew or crush. Dissolve flavored tablets completely in 3 to 4 ounces of cold water; unflavored tablets may be dissolved in 3 to 4 ounces of cold juice. Patient to sip slowly over a 5 to 10 minute period. May further dilute if GI adverse effects occur. 0839 (Given - Provider: Gibran Mahajan RN) potassium chloride (KLOR-CON M) extended release tablet 10 mEq 10 mEq, Oral, DAILY, First dose on Thu06/04/22 at 0900, Until Discontinued, Do not crush or break. 0758 (Given - Provider: Gibran Mahajan RN) 08 (Given - Provider: Gibran Mahajan RN) 1207 (Given - Provider: Debora Pat RN) pravastatin (PRAVACHOL) tablet 20 mg 20 mg, Oral, NIGHTLY, First dose on Thu06/04/22 at 2100, Until Discontinued 2104 (Given - Provider: Monica Gonzalez LPN) 2030 (Given - Provider: Monica Gonzalez LPN) 2100 (Due) sodium chloride flush 0.9 % injection 5-40 mL 5-40 mL, IntraVENous, EVERY 12 HOURS SCHEDULED (2 times per day), First dose on Thu06/04/22 at 0900, Until Discontinued, For Line Patency: Peripheral IV = 5 mL; Midline or Central Line = 10 mL/lumen. If following IV push medication, administer flush at same rate as the IV push. Flush volume is determined by type of infusion therapy being given. For non-viscous solutions use: Peripheral IV = 5 mL Midline or Central Line = 10 mL/lumen For viscous solutions (i.e. blood components, parenteral nutrition, contrast media, or after obtaining blood sample) use: Peripheral IV = 10 mL Midline or Central Line = 20 mL/lumen 0759 (Given - Provider: Gibran Mahajan RN)2108 (Given - Provider: Monica Gonzalez LPN) 0817 (Given - Provider: Gibran Mahajan RN)2032 (Given - Provider: Monica Gonzalez LPN) 0914 (Given - Provider: Debora Pat RN)2100 (Due) tamsulosin (FLOMAX) capsule 0.4 mg 0.4 mg, Oral, DAILY, First dose on Thu06/04/22 at 0900, Until Discontinued, Do not crush or break. 0759 (Given - Provider: Gibran Mahajan, MEGGAN) 0817 (Given - Provider: Gibran Mahajan, RN) 1207 (Given - Provider: Debora Pat RN) thiamine tablet 100 mg 100 mg, Oral, DAILY, First dose on Thu06/04/22 at 0900, Until Discontinued 0758 (Given - Provider: Gibran Mahajan, MEGGAN) 0816 (Given - Provider: Gibran Mahajan, RN) 1206 (Given - Provider: Debora Pat RN) Continuous Medication Order 06/04/2022 06/05/2022 06/06/2022 0.9 % sodium chloride infusion (CANCELED) IntraVENous, at 150 mL/hr, CONTINUOUS, Starting on Thu06/04/22 at 0130 0112 (New Bag - Provider: Sarina Pulido RN)0435 (Stopped - Provider: Sarina Pulido RN) PRN Medication Order 06/04/2022 06/05/2022 06/06/2022 0.9 % sodium chloride infusion IntraVENous, at 5-250 mL/hr, PRN, if patient receiving piggyback infusions and maintenance fluids are not ordered OR KVO fluids to protect IV site / prevent frequent line interruptions/ long duration, Starting on Thu06/04/22 at 0236, For piggyback infusion, administer at same rate as piggyback for a total of 25 mL. Enter 25 mL into dose field and piggyback rate into rate field of order. If piggyback is infusing at a rate less than 100 mL/hr, enter 25 mL into dose field and 100 mL/hr into rate field of order. For KVO fluids, enter rate of 20 mL/hr or less into rate field of order. albuterol sulfate HFA (PROVENTIL;VENTOLIN;PROA IR) 108 (90 Base) MCG/ACT inhaler 2 puff 2 puff, Inhalation, EVERY 6 HOURS PRN, Starting on Thu06/04/22 at 0236, Until Discontinued, Wheezing, Initiate RT Bronchodilator Protocol: Yes - Inpatient Protocol dextrose 5 % solution 100 mL/hr, IntraVENous, PRN, Low blood sugar, Starting on Thu06/04/22 at 0728, Start infusion following administration of dextrose 50% or glucagon. dextrose 50 % IV solution 12.5 g, IntraVENous, PRN, Starting on Thu06/04/22 at 0728, Until Discontinued, Low blood sugar, Blood glucose less than 70 mg/dL and patient NOT ALERT or NPO., If patient does not respond within 5 minutes, repeat dose x1. Start D5W at 100 mL/hour until ordering provider can be reached. Repeat blood glucose in 15 minutes. If blood glucose is less than 70 mg/dL, repeat treatment and recheck blood glucose in 15 minutes x2. If using Glucostabilizer, dose as instructed per system. glucagon (rDNA) injection 1 mg 1 mg, IntraMUSCular, PRN, Starting on Thu06/04/22 at 0728, Until Discontinued, Low blood sugar, Blood glucose less than 70 mg/dL and patient NOT ALERT or NPO and does not have IV access., After administration, attempt intravenous access and start D5W at 100 mL/hr. Repeat blood glucose in 15 minutes x2 and notify provider. glucose (GLUTOSE) 40 % oral gel 15 g 15 g, Oral, PRN, Starting on Thu06/04/22 at 0728, Until Discontinued, Low blood sugar, If blood glucose less than 50 mg/dL and patient ALERT and TOLERATING PO, give 2 tubes glucose gel. If blood glucose less than 70 mg/dL and patient ALERT and TOLERATING PO, give 1 tube glucose gel. Repeat blood glucose in 15 minutes. If blood glucose is less than 70 mg/dL, repeat treatment and recheck blood glucose in 15 minutes x2 and notify provider. LORazepam (ATIVAN) injection 1 mg(Linked Group 1) 1 mg, IntraVENous, EVERY 1 HOUR PRN (WITHDRAWAL), Starting on Thu06/05/22 at 1021, Until Discontinued, Withdrawal, For alcohol withdrawal., For CIWA score 8 to 10. If both oral and intravenous CIWA medications ordered, use intravenous if unable to tolerate oral equivalent. Reassess CIWA one hour after each dose of medication and as needed. 1816 (See Alternative - Provider: Gibran Mahajan RN) 0002 (See Alternative - Provider: Monica Gonzalez LPN)1204 (See Alternative - Provider: Debora Pat RN) LORazepam (ATIVAN) injection 2 mg(Linked Group 1) 2 mg, IntraVENous, EVERY 1 HOUR PRN (WITHDRAWAL), Starting on Mariela 8 at 1021, Until Discontinued, Withdrawal, For alcohol withdrawal., For CIWA score 11 to 15. If both oral and intravenous CIWA medications ordered, use intravenous if unable to tolerate oral equivalent. Reassess CIWA one hour after each dose of medication and as needed. 1815 (See Alternative - Provider: Gibran Mahajan RN) 0002 (See Alternative - Provider: Monica Gonzalez LPN)120 (See Alternative - Provider: Debora Pat RN) LORazepam (ATIVAN) injection 3 mg(Linked Group 1) 3 mg, IntraVENous, EVERY 1 HOUR PRN (WITHDRAWAL), Starting on Mariela 8/22 at 1021, Until Discontinued, Withdrawal, For alcohol withdrawal., For CIWA score 16 to 20. If both oral and intravenous CIWA medications ordered, use intravenous if unable to tolerate oral equivalent. Reassess CIWA one hour after each dose of medication and as needed. 1815 (See Alternative - Provider: Gibran Mahajan RN) 0002 (See Alternative - Provider: Monica Gonzalez LPN)120 (See Alternative - Provider: Debora Pat RN) LORazepam (ATIVAN) injection 4 mg(Linked Group 1) 4 mg, IntraVENous, EVERY 1 HOUR PRN (WITHDRAWAL), Starting on Mariela 8/22 at 1021, Until Discontinued, Withdrawal, For alcohol withdrawal., For CIWA score greater than 20. If both oral and intravenous CIWA medications ordered, use intravenous if unable to tolerate oral equivalent. Reassess CIWA one hour after each dose of medication and as needed. 1815 (See Alternative - Provider: Gibran Mahajan RN) 0002 (See Alternative - Provider: Monica Gonzalez LPN)120 (See Alternative - Provider: Debora Pat RN) LORazepam (ATIVAN) tablet 1 mg(Linked Group 1) 1 mg, Oral, EVERY 1 HOUR PRN (WITHDRAWAL), Starting on Mariela 818/22 at 1021, Until Discontinued, For alcohol withdrawal., For CIWA score 8 to 10. Reassess CIWA one hour after each dose of medication and as needed. 1815 (Given - Provider: Gibran Mahajan RN) 0002 (Given - Provider: Monica Gonzalez LPN)1204 (Given - Provider: Debora Pat RN) LORazepam (ATIVAN) tablet 2 mg(Linked Group 1) 2 mg, Oral, EVERY 1 HOUR PRN (WITHDRAWAL), Starting on Marilea 06/05/22 at 1021, Until Discontinued, For alcohol withdrawal., For CIWA score 11 to 15. Reassess CIWA one hour after each dose of medication and as needed. 1815 (See Alternative - Provider: Gibran Mahajan RN) 0002 (See Alternative - Provider: Monica Gonzalez LPN)1204 (See Alternative - Provider: Debora Pat RN) LORazepam (ATIVAN) tablet 3 mg(Linked Group 1) 3 mg, Oral, EVERY 1 HOUR PRN (WITHDRAWAL), Starting on Thu06/05/22 at 1021, Until Discontinued, For alcohol withdrawal., For CIWA score 16 to 20. Reassess CIWA one hour after each dose of medication and as needed. 1815 (See Alternative - Provider: Gibran Mahajan RN) 0002 (See Alternative - Provider: Monica Gonzalez LPN)1204 (See Alternative - Provider: Debora Pat RN) LORazepam (ATIVAN) tablet 4 mg(Linked Group 1) 4 mg, Oral, EVERY 1 HOUR PRN (WITHDRAWAL), Starting on Thu06/05/22 at 1021, Until Discontinued, For alcohol withdrawal., For CIWA score greater than 20. Reassess CIWA one hour after each dose of medication and as needed. 1815 (See Alternative - Provider: Gibran Mahajan RN) 0002 (See Alternative - Provider: Monica Gonzalez LPN)1204 (See Alternative - Provider: Debora Pat RN) ondansetron (ZOFRAN) injection 4 mg (CANCELED) 4 mg, IntraVENous, EVERY 6 HOURS PRN, Starting on Thu06/04/22 at 0236, Until Thu06/05/22 at 1753, Nausea, Vomiting 0846 (Given - Provider: Gibran Mahajan RN)1448 (Given - Provider: Gibran Mahajan RN) ondansetron (ZOFRAN-ODT) disintegrating tablet 8 mg (CANCELED) 8 mg, SubLINGual, 3 TIMES DAILY PRN, Starting on Thu06/04/22 at 0236, Until Mariela 06/05/22 at 1753, Nausea, Vomiting 2105 (Given - Provider: Monica Gonzalez LPN) 0815 (Given - Provider: Gibran Mahajan RN)1717 (Given - Provider: Gibran Mahajan RN) oxyCODONE (ROXICODONE) immediate release tablet 10 mg(Linked Group 2) 10 mg, Oral, EVERY 6 HOURS PRN, Starting on Thu06/04/22 at 0155, Until Discontinued, Pain Severe (7-10) 0230 (See Alternative - Provider: Sarina Pulido RN)0841 (See Alternative - Provider: Gibran Mahajan RN)1448 (See Alternative - Provider: Gibran Mahajan RN)2105 (Given - Provider: Monica Gonzalez LPN) 0216 (Given - Provider: Monica Gonzalez LPN)0818 (Given - Provider: Gibran Mahajan RN)1521 (See Alternative - Provider: Gibran Mahajan RN)2231 (Given - Provider: Monica Gonzalez LPN) 0510 (Given - Provider: Monica Gonzalez LPN)1204 (See Alternative - Provider: Debora Pat RN) oxyCODONE (ROXICODONE) immediate release tablet 10 mg(Linked Group 2) 10 mg, Oral, EVERY 6 HOURS PRN, Starting on Thu06/04/22 at 0155, Until Discontinued, Pain Severe (7-10) 0230 (Given - Provider: Sarina Pulido RN)0841 (Given - Provider: Gibran Mahajan RN)1448 (Given - Provider: Gibran Mahajan RN)2105 (See Alternative - Provider: Monica Gonzalez LPN) 0216 (See Alternative - Provider: Monica Gonzalez LPN)0818 (See Alternative - Provider: Gibran Mahajan RN)1521 (Given - Provider: Gibran Mahajan RN)2231 (See Alternative - Provider: Monica Gonzalez LPN) 0510 (See Alternative - Provider: Monica Gonzalez LPN)1204 (Given - Provider: Debora Pat RN) sodium chloride flush 0.9 % injection 5-40 mL 5-40 mL, IntraVENous, PRN, Starting on Thu06/04/22 at 0236, Until Discontinued, Line Care, After every IV line use, For Line Patency: Peripheral IV = 5 mL; Midline or Central Line = 10 mL/lumen. If following IV push medication, administer flush at same rate as the IV push. Flush volume is determined by type of infusion therapy being given. For non-viscous solutions use: Peripheral IV = 5 mL Midline or Central Line = 10 mL/lumen For viscous solutions (i.e. blood components, parenteral nutrition, contrast media, or after obtaining blood sample) use: Peripheral IV = 10 mL Midline or Central Line = 20 mL/lumen Linked Groups Order Group 1: LORazepam (ATIVAN) tablet 1 mgJump to med 1 mg, Oral, EVERY 1 HOUR PRN (WITHDRAWAL), Starting on Thu06/05/22 at 1021, Until Discontinued, For alcohol withdrawal.
For CIWA score 8 to 10. Reassess CIWA one hour after each dose of medication and as needed.
Or LORazepam (ATIVAN) injection 1 mgJump to med 1 mg, IntraVENous, EVERY 1 HOUR PRN (WITHDRAWAL), Starting on Thu06/05/22 at 1021, Until Discontinued, Withdrawal, For alcohol withdrawal.
For CIWA score 8 to 10. If both oral and intravenous CIWA medications ordered, use intravenous if unable to tolerate oral equivalent. Reassess CIWA one hour after each dose of medication and as needed.
Or LORazepam (ATIVAN) tablet 2 mgJump to med 2 mg, Oral, EVERY 1 HOUR PRN (WITHDRAWAL), Starting on Thu06/05/22 at 1021, Until Discontinued, For alcohol withdrawal.
For CIWA score 11 to 15. Reassess CIWA one hour after each dose of medication and as needed.
Or LORazepam (ATIVAN) injection 2 mgJump to med 2 mg, IntraVENous, EVERY 1 HOUR PRN (WITHDRAWAL), Starting on Mariela 06/05/22 at 1021, Until Discontinued, Withdrawal, For alcohol withdrawal.
For CIWA score 11 to 15. If both oral and intravenous CIWA medications ordered, use intravenous if unable to tolerate oral equivalent. Reassess CIWA one hour after each dose of medication and as needed.
Or LORazepam (ATIVAN) tablet 3 mgJump to med 3 mg, Oral, EVERY 1 HOUR PRN (WITHDRAWAL), Starting on Mariela 06/05/22 at 1021, Until Discontinued, For alcohol withdrawal.
For CIWA score 16 to 20. Reassess CIWA one hour after each dose of medication and as needed.
Or LORazepam (ATIVAN) injection 3 mgJump to med 3 mg, IntraVENous, EVERY 1 HOUR PRN (WITHDRAWAL), Starting on Mariela 06/05/22 at 1021, Until Discontinued, Withdrawal, For alcohol withdrawal.
For CIWA score 16 to 20. If both oral and intravenous CIWA medications ordered, use intravenous if unable to tolerate oral equivalent. Reassess CIWA one hour after each dose of medication and as needed.
Or LORazepam (ATIVAN) tablet 4 mgJump to med 4 mg, Oral, EVERY 1 HOUR PRN (WITHDRAWAL), Starting on Mariela 06/05/22 at 1021, Until Discontinued, For alcohol withdrawal.
For CIWA score greater than 20. Reassess CIWA one hour after each dose of medication and as needed.
Or LORazepam (ATIVAN) injection 4 mgJump to med 4 mg, IntraVENous, EVERY 1 HOUR PRN (WITHDRAWAL), Starting on Mariela 06/05/22 at 1021, Until Discontinued, Withdrawal, For alcohol withdrawal.
For CIWA score greater than 20. If both oral and intravenous CIWA medications ordered, use intravenous if unable to tolerate oral equivalent. Reassess CIWA one hour after each dose of medication and as needed.
Group 2: oxyCODONE (ROXICODONE) immediate release tablet 10 mgJump to med 10 mg, Oral, EVERY 6 HOURS PRN, Starting on Thu06/04/22 at 0155, Until Discontinued, Pain Severe (7-10) Or oxyCODONE (ROXICODONE) immediate release tablet 10 mgJump to med 10 mg, Oral, EVERY 6 HOURS PRN, Starting on Thu06/04/22 at 0155, Until Discontinued, Pain Severe (7-10) Scheduled Medication Order 01/07/2023 01/08/2023 01/09/2023 oxyCODONE-acetaminophen (Percocet) 5-325 MG per tablet 1 tablet (COMPLETED) 1 tablet, Oral, Once, On Thu01/09/23 at 1310, For 1 dose, Maximum dose of acetaminophen is 4000 mg from all sources in 24 hours. 1328 (Given - Provid er: Emilee Gonzalez RN) Scheduled Medication Order 02/12/2023 02/13/2023 02/14/2023 amLODIPine (Norvasc) tablet 2.5 mg 2.5 mg, Oral, Daily, First dose on Thu02/11/23 at 0800 0834 (Given - Provider: Melinda Nixon RN) 0917 (Given - Provider: Melinda Nixon RN) 0807 (Given - Provider: Lynne Moser, RN) calcium carbonate (Tums) chewable tablet 500 mg 500 mg, Oral, Daily, First dose on Thu02/12/23 at 0900 0833 (Given - Provider: Melinda Nixon RN) 0917 (Given - Provider: Melinda Nixon RN) 0806 (Given - Provider: Lynne Moser, RN) dicyclomine (Bentyl) capsule 20 mg 20 mg, Oral, 3 times daily before meals, First dose on Thu02/11/23 at 0730 0654 (Given - Provider: Viviana Kirk RN)1100 (Not Given - Provider: Melinda Nixon RN - Reason: Other)1325 (Given - Provider: Melinda Nixon RN) 0624 (Given - Provider: Cuco Cancino RN)1152 (Given - Provider: Melinda Nixon RN)1628 (Given - Provider: Melinda Nixon RN) 0732 (Given - Provider: Thanh Hayse RN)1106 (Given - Provider: Lynne Moser, RN)1600 (Canceled Entry - Provider: Automatic Discharge Provider - Comment: Automatically canceled at discontinue of medication order) levothyroxine (Synthroid, Levoxyl) tablet 50 mcg 50 mcg, Oral, Daily before breakfast, First dose on Thu02/11/23 at 0700, Tube feeding (TF) interaction, obtain physician order to manage, recommend holding TF for 30 minutes before and after dose. 0654 (Given - Provider: Viviana Kirk, MEGGAN) 0624 (Given - Provider: Cuco Cancino, RN) 0732 (Given - Provider: Thanh Hayes, RN) losartan (Cozaar) tablet 100 mg 100 mg, Oral, Daily, First dose on Thu02/11/23 at 0900, [employer] approved therapeutic substitution for olmesartan 0833 (Given - Provider: Melinda Nixon RN) 0917 (Given - Provider: Melinda Nixon RN) 0807 (Given - Provider: Lynne Moser, RN) oxyCODONE (Roxicodone) immediate release tablet 10 mg 10 mg, Oral, 3 times daily, First dose on Thu02/10/23 at 2320 0834 (Given - Provider: Melinda Nixon RN)1325 (Given - Provider: Melinda Nixon, MEGGAN)2002 (Given - Provider: Cuco Cancino RN) 0918 (Given - Provider: Melinda Nixon RN)1628 (Given - Provider: Melinda Nixon RN)2126 (Given - Provider: Cuco Cancino, MEGGAN) 0739 (Given - Provider: Thanh Hayes, RN)1400 (Canceled Entry - Provider: Automatic Discharge Provider - Comment: Automatically canceled at discontinue of medication order) pantoprazole (ProtoNix) EC tablet 40 mg 40 mg, Oral, Daily, First dose on Thu02/11/23 at 0900, Do not crush, chew, or split. 0834 (Given - Provider: Melinda Nixon RN) 0917 (Given - Provider: Melinda Nixon RN) 0807 (Given - Provider: Lynne Moser, RN) potassium chloride CR (Klor-Con M10) ER tablet 10 mEq 10 mEq, Oral, Daily, First dose on Thu02/11/23 at 0800, Capsule may be swallowed whole, or may be opened and its contents sprinkled on applesauce if consumed immediately without chewing. Do not crush or chew. 0800 (Given - Provider: Melinda Nixon RN) 0918 (Given - Provider: Melinda Nixon RN) 0807 (Given - Provider: Lynne Moser RN) sodium chloride tablet 1 g 1 g, Oral, 2 times daily with meals, First dose on Thu02/13/23 at 1700 1628 (Given - Provider: Melinda Nixon RN) 0806 (Given - Provider: Lynne Moser RN) tamsulosin (Flomax) 24 hr capsule 0.4 mg 0.4 mg, Oral, Daily, First dose on Thu02/11/23 at 0900, Do not crush, chew, or split. 0833 (Given - Provider: Melinda Nixon RN) 0918 (Given - Provider: Melinda Nixon RN) 0806 (Given - Provider: Lynne Moser RN) Continuous Medication Order 02/12/2023 02/13/2023 02/14/2023 sodium chloride 0.9 % infusion 100 mL/hr, IntraVENous, Continuous, Starting on Thu02/10/23 at 2320 1604 (Unheld by prov ider - Provider: Automatic Discharge Provider) sodium chloride 0.9 % infusion () 100 mL/hr, IntraVENous, Continuous, Starting on Thu02/12/23 at 1230, For 10 hours 1321 (New Bag - Provider: Melinda Nixon RN)2218 (Stopped - Provider: Cuco Cancino RN) PRN Medication Order 02/12/2023 02/13/2023 02/14/2023 acetaminophen (Tylenol) suppository 650 mg(Linked Group 1) 650 mg, Rectal, Every 6 hours PRN, mild pain (1-3), fever, For temp greater than 100.4 F (38 C), Starting on Thu02/10/23 at 2316, Administer if oral route cannot be used. Maximum dose of acetaminophen is 4000 mg from all sources in 24 hours. 0156 (See Alternative - Provider: Cuco Cancino RN) acetaminophen (Tylenol) tablet 650 mg(Linked Group 1) 650 mg, Oral, Every 6 hours PRN, mild pain (1-3), fever, For temp greater than 100.4 F (38 C), Starting on Thu02/10/23 at 2316, Maximum dose of acetaminophen is 4000 mg from all sources in 24 hours. 0156 (Given - Provider: Cuco Cancino RN - Comment: back) ondansetron (Zofran) injection 4 mg(Linked Group 2) 4 mg, IntraVENous, Every 6 hours PRN, nausea, vomiting, Starting on Thu02/10/23 at 2316, 1st Line. Give IV if patient is unable to take orally. If inadequate response within 60 minutes, proceed to next-line agent or contact provider if no further options ordered. ondansetron ODT (Zofran-ODT) disintegrating tablet 4 mg(Linked Group 2) 4 mg, Oral, Every 8 hours PRN, nausea, vomiting, Starting on Thu02/10/23 at 2316, 1st Line. If inadequate response within 60 minutes, proceed to next-line agent or contact provider if no further options ordered. Patient should allow tablet to dissolve on tongue. Do not remove from blister pack until just before administering. polyethylene glycol (PEG) 3350 (Miralax) packet 17 g 17 g, Oral, Daily PRN, constipation, Starting on Thu02/10/23 at 2316, 1st line for treatment of constipation - give scheduled if no bowel movement in past 24 hours. Linked Groups Order Group 1: acetaminophen (Tylenol) tablet 650 mgJump to med 650 mg, Oral, Every 6 hours PRN, mild pain (1-3), fever, For temp greater than 100.4 F (38 C), Starting on Thu02/10/23 at 2316
Maximum dose of acetaminophen is 4000 mg from all sources in 24 hours.
Or acetaminophen (Tylenol) suppository 650 mgJump to med 650 mg, Rectal, Every 6 hours PRN, mild pain (1-3), fever, For temp greater than 100.4 F (38 C), Starting on Thu02/10/23 at 2316
Administer if oral route cannot be used. Maximum dose of acetaminophen is 4000 mg from all sources in 24 hours.
Group 2: ondansetron ODT (Zofran-ODT) disintegrating tablet 4 mgJump to med 4 mg, Oral, Every 8 hours PRN, nausea, vomiting, Starting on Thu02/10/23 at 2316
1st Line. If inadequate response within 60 minutes, proceed to next-line agent or contact provider if no further options ordered. Patient should allow tablet to dissolve on tongue. Do not remove from blister pack until just before administering.
Or ondansetron (Zofran) injection 4 mgJump to med 4 mg, IntraVENous, Every 6 hours PRN, nausea, vomiting, Starting on Thu02/10/23 at 2316
1st Line. Give IV if patient is unable to take orally. If inadequate response within 60 minutes, proceed to next-line agent or contact provider if no further options ordered.
Scheduled Medication Order 04/05/2023 04/06/2023 04/07/2023 amLODIPine (Norvasc) tablet 2.5 mg 2.5 mg, Oral, Daily, First dose on Thu04/03/23 at 1000 0815 (Given - Provider: Shakila Damon RN) 0835 (Given - Provider: Melissa De Luna RN) 0923 (Given - Provider: Shakila Damon RN) cyanocobalamin (Vitamin B-12) tablet 100 mcg 100 mcg, Oral, Daily, First dose on Thu04/03/23 at 1800 0814 (Given - Provider: Shakila Damon RN) 0834 (Given - Provider: Melissa De Luna RN) 0922 (Given - Provider: Shakila Damon RN) dicyclomine (Bentyl) tablet 20 mg 20 mg, Oral, 3 times daily before meals, First dose on Thu04/03/23 at 1600 0654 (Given - Provider: Radha Man RN)1044 (Given - Provider: Shakila Damon RN)1607 (Given - Provider: Shakila Damon RN) 0541 (Given - Provider: Radha Man, MEGGAN)1024 (Given - Provider: Melissa De Luna, MEGGAN)1557 (Given - Provider: Melissa De Luna RN) 0623 (Given - Provider: Radha Man RN)1106 (Given - Provider: Shakila Damon RN) folic acid (Folvite) tablet 1 mg 1 mg, Oral, Daily, First dose on Thu04/03/23 at 1800 0814 (Given - Provider: Shakila Damon RN) 0834 (Given - Provider: Melissa De Luna RN) 0923 (Given - Provider: Shakila Damon, MEGGAN) levothyroxine (Synthroid, Levoxyl) tablet 50 mcg 50 mcg, Oral, Daily before breakfast, First dose on Thu04/03/23 at 1000, Tube feeding (TF) interaction, obtain physician order to manage, recommend holding TF for 30 minutes before and after dose. 0625 (Given - Provider: Radha Man RN) 0618 (Given - Provider: Radha Man RN) 0622 (Given - Provider: Radha Man RN) losartan (Cozaar) tablet 100 mg 100 mg, Oral, Daily, First dose on Thu04/03/23 at 1000 0814 (Given - Provider: Shakila Damon RN) 0835 (Given - Provider: Melissa De Luna RN) 0922 (Given - Provider: Shakila Damon, MEGGAN) oxyCODONE (Roxicodone) immediate release tablet 10 mg (COMPLETED) 10 mg, Oral, Once, On Thu04/07/23 at 1130, For 1 dose 1147 (Given - Provider: Shakila Damon, MEGGAN) pantoprazole (ProtoNix) EC tablet 40 mg 40 mg, Oral, Daily, First dose on Thu04/03/23 at 1000, Do not crush, chew, or split. 0815 (Given - Provider: hSakila Damon RN) 0834 (Given - Provider: Melissa De Luna RN) 0922 (Given - Provider: Shakila Damon, MEGGAN) PHENobarbital (Luminal) tablet 16.2 mg 16.2 mg, Oral, Every 6 hours, First dose (after last modification) on Thu04/07/23 at 1245, OK to HOLD or DELAY for oversedation 1245 (Not Given - Provider: Shakila Damon RN - Reason: Other - Comment: patient discharged) PHENobarbital (Luminal) tablet 32.4 mg (CANCELED) 32.4 mg, Oral, Every 6 hours, First dose (after last modification) on Thu04/06/23 at 1245, OK to HOLD or DELAY for oversedation 1205 (Given - Provider: Melissa De Luna RN)1824 (Given - Provider: Melissa De Luna RN) 0016 (Given - Provider: Radha aMn RN)0621 (Given - Provider: Radha Man RN) PHENobarbital (Luminal) tablet 64.8 mg (CANCELED) 64.8 mg, Oral, Every 6 hours, First dose (after last modification) on 04/04/23 at 1845, OK to HOLD or DELAY for oversedation 0049 (Given - Provider: Radha Man RN)0625 (Given - Provider: Radha Man RN)1258 (Given - Provider: Shakila Damon RN)1813 (Given - Provider: Shakila Damon RN)2352 (Given - Provider: Radha Man RN) 0618 (Given - Provider: Radha Man RN) potassium chloride CR (Klor-Con M10) ER tablet 10 mEq 10 mEq, Oral, Daily, First dose on Thu04/03/23 at 1545, Best given with food and plenty of water to minimize gastric irritation. Do not crush or chew. 0814 (Given - Provider: Shakila Damon RN) 0834 (Given - Provider: Melissa De Luna RN) 0922 (Given - Provider: Shakila Damon RN) sodium chloride tablet 1 g 1 g, Oral, 2 times daily with meals, First dose on Thu04/03/23 at 1700 0815 (Given - Provider: Shakila Damon RN)1607 (Given - Provider: Shakila Damon RN) 0834 (Given - Provider: Melissa De Lnua, MEGGAN)1600 (Given - Provider: Melissa De Luna RN) 0923 (Given - Provider: Shakila Damon, MEGGAN) tamsulosin (Flomax) 24 hr capsule 0.4 mg 0.4 mg, Oral, Daily, First dose on Thu04/03/23 at 1000, Do not crush, chew, or split. 0814 (Given - Provider: Shakila Damon RN) 0835 (Given - Provider: Melissa De Luna RN) 0923 (Given - Provider: Shakila Damon, MEGGAN) therapeutic multivitamin-minerals (Theragran-M) tablet 1 tablet, Oral, Daily, First dose on Thu04/02/23 at 1940 0814 (Given - Provider: Shakila Damon RN) 0834 (Given - Provider: Melissa De Luna, MEGGAN) 0922 (Given - Provider: Shakila Damon RN) Thiamine Mononitrate (Vitamin B1) tablet 100 mg 100 mg, Oral, Daily, First dose on Thu04/03/23 at 1800 0815 (Given - Provider: Shakila Damon RN) 0834 (Given - Provider: Melissa De Luna RN) 0922 (Given - Provider: Shakila Damon RN) PRN Medication Order 04/05/2023 04/06/2023 04/07/2023 acetaminophen (Tylenol) tablet 650 mg 650 mg, Oral, Every 6 hours PRN, mild pain (1-3), moderate pain (4-6), headaches, fever, severe pain 7-10, Starting on Thu04/02/23 at 1935 1442 (Given - Provider: Shakila Damon RN)2105 (Given - Provider: Radha Man RN) 0546 (Given - Provider: Radha Man RN)1239 (Given - Provider: Melissa De Luna RN) 0258 (Given - Provider: Radha Man RN)0923 (Given - Provider: Shakila Damon RN) albuterol (2.5 MG/3ML) 0.083% nebulizer solution 2.5 mg 2.5 mg, Nebulization, Daily PRN, wheezing, shortness of breath, Starting on Thu04/03/23 at 0950 albuterol 108 (90 Base) MCG/ACT inhaler 1 puff 1 puff, Inhalation, Every 6 hours PRN, wheezing, Starting on Thu04/03/23 at 0950, 1st line PRN wheezing aluminum & magnesium hydroxide-simethicone (Mylanta) 200-200-20 MG/5ML oral suspension 10 mL 10 mL, Oral, 3 times daily PRN, indigestion, Starting on Thu04/02/23 at 1935 0930 (Given - Provider: Shakila Damon RN)2105 (Given - Provider: Radha Man RN) 1024 (Given - Provider: Melissa De Luna RN)1824 (Given - Provider: Melissa De Luna RN) hydrOXYzine pamoate (Vistaril) capsule 50 mg 50 mg, Oral, Every 6 hours PRN, allergies, anxiety, Starting on Thu04/02/23 at 1935 0049 (Given - Provider: Radha Man RN)1442 (Given - Provider: Shakila Damon RN)2106 (Given - Provider: Radha Man RN) 0546 (Given - Provider: Radha Man RN)1205 (Given - Provider: Melissa De Luna RN)2112 (Given - Provider: Radha Man RN) loperamide (Imodium) capsule 2 mg 2 mg, Oral, 4 times daily PRN, diarrhea, Starting on Thu04/02/23 at 1935, After each loose stool 1612 (Given - Provider: Shakila Damon RN)2106 (Given - Provider: Radha Man RN) 0539 (Given - Provider: Radha Man RN)1024 (Given - Provider: Melissa De Luna RN)1557 (Given - Provider: Melissa De Luna RN)1823 (Given - Provider: Melissa De Luna RN) 0638 (Given - Provider: Radha Man RN) nitroglycerin (Nitrostat) SL tablet 0.4 mg 0.4 mg, SubLINGual, Every 5 min PRN, chest pain, Starting on Thu04/03/23 at 0951, May administer up to 3 doses per episode. ondansetron ODT (Zofran-ODT) disintegrating tablet 4 mg 4 mg, Oral, Every 6 hours PRN, nausea, vomiting, Starting on Thu04/02/23 at 1935 2106 (Given - Provider: Radha Man RN) 0539 (Given - Provider: Radha Man RN)1242 (Given - Provider: Melissa De Luna RN) 0100 (Given - Provider: Radha Man RN)0924 (Given - Provider: Shakila Damon RN) promethazine (Phenergan) injection 25 mg 25 mg, IntraMUSCular, Every 6 hours PRN, nausea, vomiting, 2nd line treatment for nausea, Starting on Thu04/06/23 at 1200, Only to be given as IM injection. 1629 (Given - Provider: Melissa De Luna RN) 0930 (Given - Provider: Shakila Damon RN - Comment: Per Dr. Perez; give with ondansetron.) traZODone (Desyrel) tablet 100 mg 100 mg, Oral, Nightly PRN, sleep, Starting on Mariela 04/02/23 at 1935 2352 (Given - Provider: Radha Man, MEGGAN) 2112 (Given - Provider: Rahda Man, MEGGAN) Scheduled Medication Order 04/13/2023 04/14/2023 04/15/2023 amLODIPine (Norvasc) tablet 2.5 mg 2.5 mg, Oral, Daily, First dose on Thu04/10/23 at 1045 0815 (Given - Provider: West Long RN) 0739 (Given - Provider: West Long RN) 0844 (Given - Provider: Lea Kim RN) calcium carbonate (Tums) chewable tablet 500 mg 500 mg, Oral, Daily, First dose on Thu04/10/23 at 1045 0815 (Given - Provider: West Long RN) 0810 (Given - Provider: West Long RN) 0844 (Given - Provider: Lea Kim RN) dicyclomine (Bentyl) capsule 20 mg 20 mg, Oral, 3 times daily before meals, First dose on Thu04/10/23 at 1100 0653 (Given - Provider: Viviana Kirk RN)1100 (Given - Provider: West Long RN)1633 (Given - Provider: West Long RN) 0554 (Given - Provider: Anna James RN)1119 (Given - Provider: West Long RN)1533 (Given - Provider: West Long RN) 0844 (Given - Provider: Lea Kim RN)1125 (Given - Provider: Lea Kim RN) famotidine (Pepcid) tablet 20 mg 20 mg, Oral, 2 times daily, First dose on Thu04/13/23 at 1345 1400 (Given - Provider: West Long RN)1944 (Given - Provider: Anna James RN) 0806 (Given - Provider: West Long RN)2030 (Given - Provider: Anny Patel RN) 0845 (Given - Provider: Lea Kim RN) folic acid (Folvite) tablet 1 mg 1 mg, Oral, Daily, First dose on Thu04/10/23 at 1045 0815 (Given - Provider: West Long RN) 0806 (Given - Provider: West Long RN) 0844 (Given - Provider: Lea Kim RN) levothyroxine (Synthroid, Levoxyl) tablet 50 mcg 50 mcg, Oral, Daily before breakfast, First dose on Thu04/11/23 at 0700, Tube feeding (TF) interaction, obtain physician order to manage, recommend holding TF for 30 minutes before and after dose. 0653 (Given - Provider: Viviana Kirk RN) 0554 (Given - Provider: Anna James RN) 0507 (Given - Provider: Anny Patel RN) Lidocaine 4 % patch 2 patch 2 patch, TransDERmal, Administer over 12 Hours, Daily, First dose on Thu04/10/23 at 1145, Apply patch to lower back area of pain. Okay to cut and place as needed. Patch may remain in place for up to 12 hours in any 24 hour period. 0815 (Medication Applied - Provider: West Long RN - Comment: lower back)1820 (Medication Removed - Provider: West Long RN - Comment: removed by patient) 08 (Medication Applied - Provider: West Long RN - Comment: lower back)2005 (Medication Removed - Provider: Anny Patel RN) 0845 (Medication Applied - Provider: Lea Kim RN)1356 (Due: Medication Removed - Provider: Automatic Discharge Provider - Comment: Time automatically adjusted from order being discontinued) losartan (Cozaar) tablet 100 mg 100 mg, Oral, Daily, First dose on Thu04/10/23 at 1045 0815 (Given - Provider: West Long RN) 0806 (Given - Provider: West Long RN) 0843 (Given - Provider: Lea Kim RN) magnesium sulfate IVPB premix 2,000 mg (COMPLETED) 2,000 mg, IntraVENous, at 25 mL/hr, Administer over 2 Hours, Once, On Thu04/13/23 at 0515, For 1 dose, Recommended infusion rate not to exceed 1,000 mg (milligrams) per hour. 0542 (New Bag - Provider: Viviana Kirk RN)0742 (Stopped - Provider: West Long RN) magnesium sulfate IVPB premix 2,000 mg (COMPLETED) 2,000 mg, IntraVENous, at 25 mL/hr, Administer over 2 Hours, Once, On Thu04/13/23 at 1245, For 1 dose, Recommended infusion rate not to exceed 1,000 mg (milligrams) per hour. 1247 (New Bag - Provider: West Long RN)1447 (Stopped - Provider: West Long RN) pantoprazole (ProtoNix) EC tablet 40 mg (CANCELED) 40 mg, Oral, Daily, First dose on Thu04/10/23 at 1045, Do not crush, chew, or split. 0815 (Given - Provider: West Long RN) sodium chloride tablet 1 g 1 g, Oral, 2 times daily with meals, First dose on Thu04/10/23 at 1045 0814 (Given - Provider: West Long RN)1633 (Given - Provider: West Long RN) 0739 (Given - Provider: West Long RN)1617 (Given - Provider: West Long RN) 0845 (Given - Provider: Lea Kim, MEGGAN) tamsulosin (Flomax) 24 hr capsule 0.4 mg 0.4 mg, Oral, Daily, First dose on Thu04/10/23 at 1045, Do not crush, chew, or split. 0815 (Given - Provider: West Long RN) 0806 (Given - Provider: West Long RN) 0843 (Given - Provider: Lea Kim, MEGGAN) Thiamine Mononitrate (Vitamin B1) tablet 100 mg 100 mg, Oral, Daily, First dose on Thu04/10/23 at 1045 0815 (Given - Provider: West Long RN) 0807 (Given - Provider: West Long RN) 0844 (Given - Provider: Lea Kim RN) Continuous Medication Order 04/13/2023 04/14/2023 04/15/2023 sodium chloride 0.9 % infusion () 100 mL/hr, IntraVENous, Continuous, Starting on Thu04/14/23 at 1330, For 5 hours 1400 (New Bag - Provider: West Long RN)1900 (Stopped - Provider: Anny Patel RN) PRN Medication Order 04/13/2023 04/14/2023 04/15/2023 albuterol (2.5 MG/3ML) 0.083% nebulizer solution 2.5 mg 2.5 mg, Nebulization, 2 times daily PRN, shortness of breath, wheezing, Starting on Thu04/10/23 at 1032 1234 (Given - Provider: Oksana Lopez RCP) loperamide (Imodium) capsule 2 mg 2 mg, Oral, 4 times daily PRN, diarrhea, Starting on Thu04/10/23 at 1304, After each loose stool ondansetron (Zofran) injection 4 mg(Linked Group 1) 4 mg, IntraVENous, Every 6 hours PRN, nausea, vomiting, Starting on Thu04/10/23 at 1030, 1st Line. Give IV if patient is unable to take orally. If inadequate response within 60 minutes, proceed to next-line agent or contact provider if no further options ordered. 0411 (Given - Provider: Viviana Kirk RN)1052 (Given - Provider: West Long RN)1700 (Given - Provider: West Long RN) 1816 (Given - Provider: West Long RN) 0507 (Given - Provider: Anny Patel RN)1122 (Given - Provider: Lea Kim RN) ondansetron ODT (Zofran-ODT) disintegrating tablet 4 mg(Linked Group 1) 4 mg, Oral, Every 8 hours PRN, nausea, vomiting, Starting on Thu04/10/23 at 1030, 1st Line. If inadequate response within 60 minutes, proceed to next-line agent or contact provider if no further options ordered. Patient should allow tablet to dissolve on tongue. Do not remove from blister pack until just before administering. 0411 (See Alternative - Provider: Viviana Kirk RN)1052 (See Alternative - Provider: West Long RN)1700 (See Alternative - Provider: West Long RN) 1816 (See Alternative - Provider: West Long RN) 0507 (See Alternative - Provider: Anny Patel RN)1122 (See Alternative - Provider: Lea Kim, RN) oxyCODONE (Roxicodone) immediate release tablet 5 mg 5 mg, Oral, Every 6 hours PRN, severe pain (7-10), Starting on Thu04/10/23 at 1140 0050 (Given - Provider: Viviana Kirk RN)0653 (Given - Provider: Viviana Kirk RN)1305 (Given - Provider: West Long RN)1944 (Given - Provider: Anna James RN) 0138 (Given - Provider: Anna James RN)0745 (Given - Provider: West Long RN)1401 (Given - Provider: West Long RN)2031 (Given - Provider: Anny Patel RN) 0226 (Given - Provider: Anny Patel RN)0843 (Given - Provider: Lea Kim RN) polyethylene glycol (PEG) 3350 (Miralax) packet 17 g 17 g, Oral, Daily PRN, constipation, Starting on Thu04/10/23 at 1030, 1st line for treatment of constipation - give scheduled if no bowel movement in past 24 hours. 1124 (Given - Provider: West Long RN) Linked Groups Order Group 1: ondansetron ODT (Zofran-ODT) disintegrating tablet 4 mgJump to med 4 mg, Oral, Every 8 hours PRN, nausea, vomiting, Starting on Thu04/10/23 at 1030
1st Line. If inadequate response within 60 minutes, proceed to next-line agent or contact provider if no further options ordered. Patient should allow tablet to dissolve on tongue. Do not remove from blister pack until just before administering.
Or ondansetron (Zofran) injection 4 mgJump to med 4 mg, IntraVENous, Every 6 hours PRN, nausea, vomiting, Starting on Thu04/10/23 at 1030
1st Line. Give IV if patient is unable to take orally. If inadequate response within 60 minutes, proceed to next-line agent or contact provider if no further options ordered.
Scheduled Medication Order 07/03/2023 07/04/2023 07/05/2023 amLODIPine (Norvasc) tablet 2.5 mg 2.5 mg, Oral, Daily, First dose on Thu07/01/23 at 0800 0857 (Given - Provider: Leonora Contreras RN) 0856 (Given - Provider: Lea Kim RN) 0825 (Given - Provider: Lea Kim RN) dicyclomine (Bentyl) capsule 20 mg 20 mg, Oral, 3 times daily before meals, First dose (after last reorder) on Thu07/01/23 at 1600 0857 (Given - Provider: Leonora Contreras RN)1126 (Given - Provider: Leonora Contreras RN)1725 (Given - Provider: Carina Charles RN) 0856 (Given - Provider: Lea Kim RN)1209 (Given - Provider: Lea Kim RN)1606 (Given - Provider: Lea Kim RN) 0603 (Given - Provider: Anastacia Rome, MEGGAN)1114 (Given - Provider: Lea Kim, MEGGAN)1600 (Canceled Entry - Provider: Automatic Discharge Provider - Comment: Automatically canceled at discontinue of medication order) enoxaparin (Lovenox) syringe 40 mg 40 mg, SubCUTAneous, Every 24 hours scheduled (Daily), First dose on Thu07/01/23 at 0900, Indication of Use: Prophylaxis-DVT/PE, Indications: Prophylaxis of Venous Thromboembolism 0858 (Given - Provider: Leonora Contreras RN) 0857 (Given - Provider: Lea Kim RN) 0900 (Not Given - Provider: Lea Kim RN - Reason: Patient/family refused) famotidine (Pepcid) tablet 20 mg 20 mg, Oral, 2 times daily, First dose on Thu06/30/23 at 2110 0857 (Given - Provider: Leonora Contreras RN)2033 (Given - Provider: Thaddeus Castillo RN) 0854 (Given - Provider: Lea Kim RN)2058 (Given - Provider: Anastacia Rome RN) 0825 (Given - Provider: Lea Kim RN) folic acid (Folvite) tablet 1 mg 1 mg, Oral, Daily, First dose on Thu07/01/23 at 0900 0857 (Given - Provider: Leonora Contreras RN) 0855 (Given - Provider: Lea Kim RN) 0825 (Given - Provider: Lea Kim RN) influenza vac subunit quadrivalent (Flucelvax) injection 0.5 mL 0.5 mL, IntraMUSCular, Prior to discharge, Starting on Thu07/01/23 at 0900, For 1 dose ipratropium-albuterol (Duo-Neb) 0.5-2.5 mg/3 mL nebulizer solution 3 mL 3 mL, Nebulization, 2 times daily, First dose (after last modification) on Mariela 07/02/23 at 0800 0900 (Given - Provider: Sally Sanders RCP)2000 (Canceled Entry - Provider: Automatic Discharge Provider - Comment: Automatically canceled at discontinue of medication order) 0800 (Canceled Entry - Provider: Automatic Discharge Provider - Comment: Automatically canceled at discontinue of medication order)204 (Given - Provider: Lakshmi Toro RCP) 0952 (Not Given - Provider: Jose Schroeder RCP - Reason: Patient/family refused) ipratropium-albuterol (Duo-Neb) 0.5-2.5 mg/3 mL nebulizer solution 3 mL 3 mL, Nebulization, Once, On 07/04/23 at 0415, For 1 dose 0415 (Canceled Entry - Provider: Automatic Discharge Provider - Comment: Automatically canceled at discontinue of medication order) levothyroxine (Synthroid, Levoxyl) tablet 50 mcg 50 mcg, Oral, Daily before breakfast, First dose on Thu07/01/23 at 0700, Tube feeding (TF) interaction, obtain physician order to manage, recommend holding TF for 30 minutes before and after dose. 0519 (Given - Provider: Leonora Leon RN) 0548 (Given - Provider: Thaddeus Castillo RN) 0600 (Given - Provider: Anastacia Rome RN) losartan (Cozaar) tablet 100 mg 100 mg, Oral, Daily, First dose on Thu07/01/23 at 0900 0857 (Given - Provider: Leonora Contreras RN) 0855 (Given - Provider: Lea Kim RN) 0825 (Given - Provider: Lea Kim RN) morphine injection 2 mg (COMPLETED) 2 mg, IntraVENous, Once, On Thu07/03/23 at 2100, For 1 dose 2105 (Given - Provider: Thaddeus Castillo RN) nicotine (Nicoderm, Step 1) 21 MG/24HR patch 1 patch 1 patch, TransDERmal, Administer over 24 Hours, Daily, First dose on Thu07/01/23 at 1515 0858 (Medication Removed - Provider: Leonora Contreras RN)0900 (Not Given - Provider: Leonora Contreras RN - Reason: Patient/family refused) 0900 (Not Given - Provider: Lea Kim RN - Reason: Patient/family refused) 0900 (Not Given - Provider: Lea Kim RN - Reason: Patient/family refused) PHENobarbital (Luminal) tablet 32.4 mg (COMPLETED) 32.4 mg, Oral, Every 8 hours, First dose (after last modification) on Thu07/03/23 at 1700, For 3 doses, OK to HOLD if overly sedated 1726 (Given - Provider: Carina Charles RN) 0108 (Given - Provider: Thaddeus Castillo, MEGGAN)0855 (Given - Provider: Lea Kim RN) PHENobarbital (Luminal) tablet 64.8 mg (CANCELED) 64.8 mg, Oral, Every 4 hours, First dose on Thu06/30/23 at 2110, OK to HOLD if overly sedated 0040 (Given - Provider: Lea Mcneil RN)0519 (Given - Provider: Leonora Leon, MEGGAN)0857 (Given - Provider: Leonora Contreras, MEGGAN) potassium chloride (Klor-Con) packet 10 mEq 10 mEq, Oral, Daily, First dose on Thu07/01/23 at 0800, Capsule may be swallowed whole, or may be opened and its contents sprinkled on applesauce if consumed immediately without chewing. Dissolve each packet in 4 ounces of water = 5 mEq per 1 oz fluid. 0857 (Given - Provider: Leonora Contreras RN) 0854 (Given - Provider: Lea Kim RN) 0826 (Given - Provider: Lea Kim RN) sodium chloride tablet 1 g 1 g, Oral, 2 times daily with meals, First dose on Thu07/01/23 at 0800 0800 (Given - Provider: Leonora Contreras RN)1700 (Given - Provider: Carina Charles RN) 0800 (Given - Provider: Lea Kim RN)1700 (Given - Provider: Lea Kim RN) 0800 (Given - Provider: Lea Kim RN) tamsulosin (Flomax) 24 hr capsule 0.4 mg 0.4 mg, Oral, Daily, First dose on Thu07/01/23 at 0900, Do not crush, chew, or split. 0857 (Given - Provider: Leonora Contreras RN) 0854 (Given - Provider: Lea Kim RN) 0825 (Given - Provider: Lea Kim RN) thiamine (Vitamin B1) tablet 100 mg 100 mg, Oral, Daily, First dose on Thu07/01/23 at 0900 0857 (Given - Provider: Leonora Contreras RN) 0856 (Given - Provider: Lea Kim RN) 0826 (Given - Provider: Lea Kmi RN) Continuous Medication Order 07/03/2023 07/04/2023 07/05/2023 sodium chloride 0.9 % infusion () 100 mL/hr, IntraVENous, Continuous, Starting on Thu07/03/23 at 1300, For 10 hours 1354 (New Bag - Provider: Leonora Contreras RN)2107 (Rate/Dose Verify - Provider: Thaddeus Castillo RN)2300 (Stopped - Provider: Thaddeus Castillo RN) PRN Medication Order 07/03/2023 07/04/2023 07/05/2023 acetaminophen (Tylenol) suppository 650 mg(Linked Group 1) 650 mg, Rectal, Every 6 hours PRN, mild pain (1-3), fever, For temp greater than 100.4 F (38 C), Starting on Thu06/30/23 at 2109, Administer if oral route cannot be used. Maximum dose of acetaminophen is 4000 mg from all sources in 24 hours. acetaminophen (Tylenol) tablet 650 mg(Linked Group 1) 650 mg, Oral, Every 6 hours PRN, mild pain (1-3), fever, For temp greater than 100.4 F (38 C), Starting on Thu06/30/23 at 2108, Maximum dose of acetaminophen is 4000 mg from all sources in 24 hours. calcium carbonate (Tums) chewable tablet 1,000 mg 1,000 mg, Oral, 2 times daily PRN, indigestion, heartburn, Starting on Thu07/04/23 at 0534 0548 (Given - Provider: Thaddeus Castillo RN) fluticasone (Flonase) nasal spray 1 spray 1 spray, Each Nostril, Daily PRN, rhinitis, Starting on Thu06/30/23 at 2108, Shake gently. Before first use, prime pump (press 6 times until fine spray appears). After use, clean tip and replace cap. LORazepam (Ativan) tablet 1 mg (CANCELED) 1 mg, Oral, Every 1 hour PRN, other, For alcohol withdrawal, Starting on Thu06/30/23 at 2108, For CIWA score 8 to 10. Reassess CIWA one hour after each dose of medication and as needed. 2057 (Given - Provider: Anastacia Rome, RN) ondansetron (Zofran) injection 4 mg(Linked Group 2) 4 mg, IntraVENous, Every 6 hours PRN, nausea, vomiting, Starting on Thu06/30/23 at 2108, 1st Line. Give IV if patient is unable to take orally. If inadequate response within 60 minutes, proceed to next-line agent or contact provider if no further options ordered. 626 (Given - Provider: Leonora Leon RN) 040 (Given - Provider: Thaddeus Castillo RN) 044 (Given - Provider: Anastacia Rome, RN) ondansetron ODT (Zofran-ODT) disintegrating tablet 4 mg(Linked Group 2) 4 mg, Oral, Every 8 hours PRN, nausea, vomiting, Starting on Thu06/30/23 at 2108, 1st Line. If inadequate response within 60 minutes, proceed to next-line agent or contact provider if no further options ordered. Patient should allow tablet to dissolve on tongue. Do not remove from blister pack until just before administering. 626 (See Alternative - Provider: Leonora Leon RN) 0401 (See Alternative - Provider: Thaddeus Castillo RN) 0446 (See Alternative - Provider: Anastacia Rome, MEGGAN) oxyCODONE-acetaminophen (Percocet) 5-325 MG per tablet 1 tablet 1 tablet, Oral, Every 6 hours PRN, severe pain (7-10), Starting on Thu07/03/23 at 1123, Maximum dose of acetaminophen is 4000 mg from all sources in 24 hours. 1126 (Given - Provider: Leonora Contreras RN)1729 (Given - Provider: Carina Charles RN) 0108 (Given - Provider: Thaddeus Castillo RN)1210 (Given - Provider: Lea Kim, MEGGAN)1732 (Given - Provider: Lea Kim RN)2321 (Given - Provider: Anastacia Rome, MEGGAN) 0603 (Given - Provider: Anastacia Rome, MEGGAN)1114 (Given - Provider: Lea Kim, MEGGAN) polyethylene glycol (PEG) 3350 (Miralax) packet 17 g 17 g, Oral, Daily PRN, constipation, Starting on Thu06/30/23 at 2109, 1st line for treatment of constipation - give scheduled if no bowel movement in past 24 hours. 1232 (Given - Provider: Lea Kim RN) zolpidem (Ambien) tablet 5 mg 5 mg, Oral, Nightly PRN, sleep, Starting on 07/04/23 at 2138 2212 (Given - Provider: Anastacia Rome RN) Linked Groups Order Group 1: acetaminophen (Tylenol) tablet 650 mgJump to med 650 mg, Oral, Every 6 hours PRN, mild pain (1-3), fever, For temp greater than 100.4 F (38 C), Starting on Thu06/30/23 at 2109
Maximum dose of acetaminophen is 4000 mg from all sources in 24 hours.
Or acetaminophen (Tylenol) suppository 650 mgJump to med 650 mg, Rectal, Every 6 hours PRN, mild pain (1-3), fever, For temp greater than 100.4 F (38 C), Starting on Thu06/30/23 at 2109
Administer if oral route cannot be used. Maximum dose of acetaminophen is 4000 mg from all sources in 24 hours.
Group 2: ondansetron ODT (Zofran-ODT) disintegrating tablet 4 mgJump to med 4 mg, Oral, Every 8 hours PRN, nausea, vomiting, Starting on Thu06/30/23 at 2109
1st Line. If inadequate response within 60 minutes, proceed to next-line agent or contact provider if no further options ordered. Patient should allow tablet to dissolve on tongue. Do not remove from blister pack until just before administering.
Or ondansetron (Zofran) injection 4 mgJump to med 4 mg, IntraVENous, Every 6 hours PRN, nausea, vomiting, Starting on Thu06/30/23 at 2109
1st Line. Give IV if patient is unable to take orally. If inadequate response within 60 minutes, proceed to next-line agent or contact provider if no further options ordered.
Scheduled Medication Order 10/25/2023 10/26/2023 10/27/2023 amLODIPine (Norvasc) tablet 2.5 mg 2.5 mg, Oral, Daily, First dose on Thu10/21/23 at 0800 0850 (Given - Provider: Erika Fowler RN) 0857 (Given - Provider: Mónica Anders RN) 0927 (Given - Provider: Mónica Anders RN) dicyclomine (Bentyl) capsule 20 mg 20 mg, Oral, 3 times daily before meals, First dose on Thu10/20/23 at 2200 0620 (Given - Provider: Daniel Weinstein RN)1047 (Given - Provider: Erika Fowler RN)1617 (Given - Provider: Erika Fowler RN) 0608 (Given - Provider: Daniel Weinstein, RN)1122 (Given - Provider: Mónica Anders RN)1625 (Given - Provider: Mónica Anders RN) 0552 (Given - Provider: Daniel Weinstein, MEGGAN)1206 (Given - Provider: Mónica Anders, MEGGAN) folic acid (Folvite) tablet 1 mg 1 mg, Oral, Daily, First dose on Thu10/21/23 at 0900 0850 (Given - Provider: Erika Fowler RN) 0857 (Given - Provider: Mónica Anders RN) 0927 (Given - Provider: Mónica Anders RN) levothyroxine (Synthroid, Levoxyl) tablet 50 mcg 50 mcg, Oral, Daily before breakfast, First dose on Thu10/21/23 at 0700, Tube feeding (TF) interaction, obtain physician order to manage, recommend holding TF for 30 minutes before and after dose. 0621 (Given - Provider: Daniel Weinstein RN) 0608 (Given - Provider: Daniel Weinstein RN) 0552 (Given - Provider: Daniel Weinstein RN) losartan (Cozaar) tablet 100 mg 100 mg, Oral, Daily, First dose on Thu10/21/23 at 0900 0850 (Given - Provider: Erika Fowler RN) 0857 (Given - Provider: Mónica Anders RN) 0927 (Given - Provider: Mónica Anders RN) magnesium oxide (Mag-Ox) tablet 800 mg 800 mg, Oral, 2 times daily, First dose on Thu10/26/23 at 0945 0959 (Given - Provider: Mónica Anders RN)2006 (Given - Provider: Daniel Weinstein RN) 0927 (Given - Provider: Mónica Anders RN) magnesium sulfate IVPB premix 2,000 mg (COMPLETED) 2,000 mg, IntraVENous, at 25 mL/hr, Administer over 2 Hours, Once, On Thu10/25/23 at 1000, For 1 dose, Recommended infusion rate not to exceed 1,000 mg (milligrams) per hour. 1047 (New Bag - Provider: Erika Fowler RN)1247 (Stopped - Provider: Erika Fowler RN) magnesium sulfate IVPB premix 2,000 mg (COMPLETED) 2,000 mg, IntraVENous, at 25 mL/hr, Administer over 2 Hours, Once, On Thu10/26/23 at 0945, For 1 dose, Recommended infusion rate not to exceed 1,000 mg (milligrams) per hour. 1121 (New Bag - Provider: Mónica Anders RN)1321 (Stopped - Provider: Mónica Anders RN) nicotine (Nicoderm, Step 1) 21 MG/24HR patch 1 patch 1 patch, TransDERmal, Administer over 24 Hours, Daily, First dose on Thu10/21/23 at 1240 0900 (Not Given - Provider: Erika Fowler RN - Reason: Other - Comment: pt states he does not smoke) 0900 (Not Given - Provider: Mónica Anders RN - Reason: Patient/family refused) 0900 (Not Given - Provider: Mónica Anders RN - Reason: Patient/family refused) pantoprazole (ProtoNix) EC tablet 40 mg 40 mg, Oral, 2 times daily before meals, First dose on Thu10/22/23 at 1600, Do not crush, chew, or split. 0621 (Given - Provider: Daniel Weinstein RN)1617 (Given - Provider: Erika Fowler RN) 0608 (Given - Provider: Daniel Weinstein RN)1625 (Given - Provider: Mónica Anders RN) 0552 (Given - Provider: Daniel Weinstein RN) PHENobarbital (Luminal) tablet 32.4 mg (COMPLETED)(Linked Group 1) 32.4 mg, Oral, Every 8 hours, First dose on Thu10/24/23 at 1600, For 4 doses, OK to HOLD if overly sedated 0017 (Given - Provider: Daniel Weinstein RN)0850 (Given - Provider: Erika Fowler RN)1617 (Given - Provider: Erika Fowler RN) potassium chloride CR (Klor-Con M10) ER tablet 10 mEq 10 mEq, Oral, Daily, First dose on Thu10/21/23 at 0800, Capsule may be swallowed whole, or may be opened and its contents sprinkled on applesauce if consumed immediately without chewing. Do not crush or chew. 0850 (Given - Provider: Erika Fowler RN) 0857 (Given - Provider: Mónica Anders, MEGGAN) 0928 (Given - Provider: Mónica Anders RN) sodium chloride 0.9% (NS) flush 10 mL 10 mL, IntraVENous, Every 12 hours scheduled (2 times per day), First dose on Thu10/20/23 at 2155 0900 (Not Given - Provider: Erika Fowler RN - Reason: IV Fluids Infusing)2038 (Given - Provider: Daniel Weinstein RN) 0900 (Not Given - Provider: Mónica Anders RN - Reason: IV Fluids Infusing)2006 (Given - Provider: Daniel Weinstein RN) 0928 (Given - Provider: Mónica Anders RN) sodium chloride tablet 1 g 1 g, Oral, 2 times daily with meals, First dose on Thu10/21/23 at 0800 0859 (Given - Provider: Erika Fowler RN)1617 (Given - Provider: Erika Fowler RN) 0857 (Given - Provider: Mónica Anders RN)1725 (Given - Provider: Mónica Anders RN) 0927 (Given - Provider: Mónica Anders RN) tamsulosin (Flomax) 24 hr capsule 0.4 mg 0.4 mg, Oral, Daily, First dose on Thu10/21/23 at 0900, Do not crush, chew, or split. 0850 (Given - Provider: Erika Fowler RN) 0857 (Given - Provider: Mónica Anders RN) 0928 (Given - Provider: Mónica Anders RN) thiamine (Vitamin B1) tablet 100 mg 100 mg, Oral, Daily, First dose on Thu10/21/23 at 0900 0850 (Given - Provider: Erika Fowler RN) 0857 (Given - Provider: Mónica Anders RN) 0927 (Given - Provider: Mónica Anders RN) Continuous Medication Order 10/25/2023 10/26/2023 10/27/2023 sodium chloride 0.9 % infusion (CANCELED) 125 mL/hr, IntraVENous, Continuous, Starting on Thu10/20/23 at 2155 1618 (New Bag - Provider: Erika Fowler RN) 0251 (New Bag - Provider: Daniel Weinstein, MEGGAN)1000 (Stopped - Provider: Mónica Anders RN) PRN Medication Order 10/25/2023 10/26/2023 10/27/2023 acetaminophen (Tylenol) suppository 650 mg(Linked Group 2) 650 mg, Rectal, Every 6 hours PRN, mild pain (1-3), fever, For temp greater than 100.4 F (38 C), Starting on Thu10/20/23 at 2154, Administer if oral route cannot be used. Maximum dose of acetaminophen is 4000 mg from all sources in 24 hours. acetaminophen (Tylenol) tablet 650 mg(Linked Group 2) 650 mg, Oral, Every 6 hours PRN, mild pain (1-3), fever, For temp greater than 100.4 F (38 C), Starting on Thu10/20/23 at 2153, Maximum dose of acetaminophen is 4000 mg from all sources in 24 hours. albuterol 108 (90 Base) MCG/ACT inhaler 1 puff 1 puff, Inhalation, Every 4 hours PRN, shortness of breath, wheezing, Starting on Thu10/20/23 at 2153 hydrALAZINE (Apresoline) injection 10 mg 10 mg, IntraVENous, Every 4 hours PRN, high blood pressure, >150, Starting on Thu10/21/23 at 0906 0355 (Given - Provider: Daniel Weinstein RN) loperamide (Imodium) capsule 2 mg 2 mg, Oral, 4 times daily PRN, diarrhea, Starting on Thu10/22/23 at 1200, After each loose stool 1925 (Given - Provider: Daniel Weinstein RN) LORazepam (Ativan) injection 1 mg(Linked Group 3) 1 mg, IntraVENous, Every 1 hour PRN, withdrawal, For alcohol withdrawal, Starting on Thu10/20/23 at 2153, For CIWA score 8 to 10. If both oral and intravenous CIWA medications ordered, use intravenous if unable to tolerate oral equivalent. Reassess CIWA one hour after each dose of medication and as needed. For IV doses dilute dose with 1ml NS. 0258 (Given - Provider: Daniel Weinstein RN)1503 (See Alternative - Provider: Erika Fowler RN)1926 (See Alternative - Provider: Daniel Weinstein RN)2047 (See Alternative - Provider: Daniel Weinstein RN) 0020 (See Alternative - Provider: Daniel Weinstein RN)0250 (See Alternative - Provider: Daniel Weinstein RN)0355 (Given - Provider: Daniel Weinstein RN)1310 (See Alternative - Provider: Mónica Anders, MEGGAN)1747 (See Alternative - Provider: Mónica Anders, MEGGAN) 0129 (See Alternative - Provider: Daniel Weinstein RN)1206 (See Alternative - Provider: Mónica Anders RN) LORazepam (Ativan) injection 2 mg(Linked Group 3) 2 mg, IntraVENous, Every 1 hour PRN, withdrawal, For alcohol withdrawal., Starting on Thu10/20/23 at 2154, For CIWA score 11 to 15. If both oral and intravenous CIWA medications ordered, use intravenous if unable to tolerate oral equivalent. Reassess CIWA one hour after each dose of medication and as needed. For IV doses dilute dose with 1ml NS. 0258 (See Alternative - Provider: Daniel Weinstein RN)1503 (See Alternative - Provider: Erika Fowler RN)1926 (See Alternative - Provider: Daniel Weinstein RN)2047 (See Alternative - Provider: Daniel Weinstein RN) 0020 (See Alternative - Provider: Daniel Weinstein RN)0250 (See Alternative - Provider: Daniel Weinstein RN)0355 (See Alternative - Provider: Daniel Weinstein RN)1310 (See Alternative - Provider: Mónica Anders RN)1747 (See Alternative - Provider: Mónica Anders RN) 0129 (See Alternative - Provider: Daniel Weinstein RN)1206 (See Alternative - Provider: Mónica Anders RN) LORazepam (Ativan) injection 3 mg(Linked Group 3) 3 mg, IntraVENous, Every 1 hour PRN, withdrawal, For alcohol withdrawal, Starting on Thu10/20/23 at 2154, For CIWA score 16 to 20. If both oral and intravenous CIWA medications ordered, use intravenous if unable to tolerate oral equivalent. Reassess CIWA one hour after each dose of medication and as needed. For IV doses dilute dose with 1ml NS. 0258 (See Alternative - Provider: Daniel Weinstein RN)1503 (See Alternative - Provider: Erika Fowler RN)1926 (See Alternative - Provider: Daniel Weinstein RN)2047 (See Alternative - Provider: Daniel Weinstein RN) 0020 (See Alternative - Provider: Daniel Weinstein RN)0250 (See Alternative - Provider: Daniel Weinstein RN)0355 (See Alternative - Provider: Daniel Weinstein RN)1310 (See Alternative - Provider: Mónica Anders RN)1747 (See Alternative - Provider: Mónica Anders RN) 0129 (See Alternative - Provider: Daniel Weinstein RN)1206 (See Alternative - Provider: Mónica Anders RN) LORazepam (Ativan) injection 4 mg(Linked Group 3) 4 mg, IntraVENous, Every 1 hour PRN, withdrawal, For alcohol withdrawal, Starting on Thu10/20/23 at 2154, For CIWA score greater than 20. If both oral and intravenous CIWA medications ordered, use intravenous if unable to tolerate oral equivalent. Reassess CIWA one hour after each dose of medication and as needed. For IV doses dilute dose with 1ml NS. 0258 (See Alternative - Provider: Daniel Weinstein RN)1503 (See Alternative - Provider: Erika Fowler RN)1926 (See Alternative - Provider: Danile Weinstein RN)2047 (See Alternative - Provider: Daniel Weinstein RN) 0020 (See Alternative - Provider: Daniel Weinstein RN)0250 (See Alternative - Provider: Daniel Weinstein RN)0355 (See Alternative - Provider: Daniel Weinstein RN)1310 (See Alternative - Provider: Mónica Anders RN)1747 (See Alternative - Provider: Mónica Anders RN) 0129 (See Alternative - Provider: Daniel Weinstein RN)1206 (See Alternative - Provider: Mónica Anders RN) LORazepam (Ativan) tablet 1 mg(Linked Group 3) 1 mg, Oral, Every 1 hour PRN, other, For alcohol withdrawal, Starting on Thu10/20/23 at 2154, For CIWA score 8 to 10. Reassess CIWA one hour after each dose of medication and as needed. 0258 (See Alternative - Provider: Daniel Weinstein RN)1503 (Given - Provider: Erika Fowler RN)1926 (Given - Provider: Daniel Weinstein RN)2047 (Given - Provider: Daniel Weinstein RN) 0020 (Given - Provider: Daniel Weinstein RN)0250 (Given - Provider: Daniel Weinstein RN)0355 (See Alternative - Provider: Daniel Weinstein RN)1310 (Given - Provider: Mónica Anders RN)1747 (Given - Provider: Mónica Anders RN) 0129 (Given - Provider: Daniel Weinstein RN)1206 (Given - Provider: Mónica Anders RN) LORazepam (Ativan) tablet 2 mg(Linked Group 3) 2 mg, Oral, Every 1 hour PRN, other, For alcohol withdrawal, Starting on Thu10/20/23 at 2154, For CIWA score 11 to 15. Reassess CIWA one hour after each dose of medication and as needed. 0258 (See Alternative - Provider: Daniel Weinstein RN)1503 (See Alternative - Provider: Erika Fowler RN)1926 (See Alternative - Provider: Daniel Weinstein RN)204 (See Alternative - Provider: Daniel Weinstein RN) 0020 (See Alternative - Provider: Daniel Weinstein RN)0250 (See Alternative - Provider: Daniel Weinstein RN)0355 (See Alternative - Provider: Daniel Weinstein RN)1310 (See Alternative - Provider: Mónica Anders RN)1747 (See Alternative - Provider: Mónica Anders RN) 0129 (See Alternative - Provider: Daniel Weinstein RN)1206 (See Alternative - Provider: Mónica Anders RN) LORazepam (Ativan) tablet 3 mg(Linked Group 3) 3 mg, Oral, Every 1 hour PRN, other, For alcohol withdrawal, Starting on Thu10/20/23 at 2154, For CIWA score 16 to 20. Reassess CIWA one hour after each dose of medication and as needed. 0258 (See Alternative - Provider: Daniel Weinstein RN)1503 (See Alternative - Provider: Erika Fowler RN)1926 (See Alternative - Provider: Daniel Weinstein RN)2047 (See Alternative - Provider: Daniel Weinstein RN) 0020 (See Alternative - Provider: Daniel Weinstein RN)0250 (See Alternative - Provider: Daniel Weinstein RN)0355 (See Alternative - Provider: Daniel Weinstein RN)1310 (See Alternative - Provider: Mónica Anders RN)1747 (See Alternative - Provider: Mónica Anders RN) 0129 (See Alternative - Provider: Daniel Weinstein RN)1206 (See Alternative - Provider: Mónica Anders RN) LORazepam (Ativan) tablet 4 mg(Linked Group 3) 4 mg, Oral, Every 1 hour PRN, other, For alcohol withdrawal, Starting on Thu10/20/23 at 2154, For CIWA score greater than 20. Reassess CIWA one hour after each dose of medication and as needed. 0258 (See Alternative - Provider: Daniel Weinstein RN)1503 (See Alternative - Provider: Erika Fowler RN)1926 (See Alternative - Provider: Daniel Weinstein RN)2047 (See Alternative - Provider: Daniel Weinstein RN) 0020 (See Alternative - Provider: Daniel Weinstein RN)0250 (See Alternative - Provider: Daniel Weinstein RN)0355 (See Alternative - Provider: Daniel Weinstein RN)1310 (See Alternative - Provider: Mónica Anders RN)1747 (See Alternative - Provider: Mónica Anders RN) 0129 (See Alternative - Provider: Daniel Weinstein RN)1206 (See Alternative - Provider: Mónica Anders RN) metoprolol tartrate (Lopressor) injection 5 mg 5 mg, IntraVENous, Every 6 hours PRN, tachycardia, >110, Starting on Thu10/23/23 at 1903 morphine injection 4 mg (CANCELED) 4 mg, IntraVENous, Every 4 hours PRN, severe pain (7-10), Starting on Thu10/20/23 at 2154, If oral and IV narcotics ordered, use oral first and only use IV if oral is ineffective or cannot take oral. Do Not give oral and IV within 1 hour of each other unless specifically ordered. 0258 (Given - Provider: Daniel Weinstein RN)1146 (Given - Provider: Erika Fowler, MEGGAN)1617 (Given - Provider: Erika Fowler, MEGGAN)2038 (Given - Provider: Daniel Weinstein RN) 0115 (Given - Provider: Daniel Weinstein RN) naloxone (Narcan) injection 0.4 mg 0.4 mg, IntraVENous, Every 5 min PRN, opioid reversal, respiratory depression, Starting on Thu10/21/23 at 0909, +++ For RR <10, pinpoint pupils, over sedation for opioid reversal - MUST notify irrigation equipment mechanic provider immediately after first dose, may give IM or SQ if no IV access +++ ondansetron (Zofran) injection 4 mg(Linked Group 4) 4 mg, IntraVENous, Every 6 hours PRN, nausea, vomiting, Starting on Thu10/20/23 at 2101, 1st Line. Give IV if patient is unable to take orally. If inadequate response within 60 minutes, proceed to next-line agent or contact provider if no further options ordered. 0125 (See Alternative - Provider: Daniel Weinstein RN) ondansetron ODT (Zofran-ODT) disintegrating tablet 4 mg(Linked Group 4) 4 mg, Oral, Every 4 hours PRN, nausea, vomiting, Starting on Thu10/20/23 at 2101, 1st Line. If inadequate response within 60 minutes, proceed to next-line agent or contact provider if no further options ordered. Patient should allow tablet to dissolve on tongue. Do not remove from blister pack until just before administering. 0125 (Given - Provider: Daniel Weinstein RN) oxyCODONE-acetaminophen (Percocet) 7.5-325 MG per tablet 1 tablet 1 tablet, Oral, Every 6 hours PRN, severe pain (7-10), Starting on Thu10/26/23 at 0850, Maximum dose of acetaminophen is 4000 mg from all sources in 24 hours. 0857 (Given - Provider: Mónica Anders RN)1529 (Given - Provider: Mónica Anders RN)2134 (Given - Provider: Daniel Weinstein RN) 0345 (Given - Provider: Daniel Weinstein RN)1012 (Given - Provider: Mónica Anders RN) polyethylene glycol (PEG) 3350 (Miralax) packet 17 g 17 g, Oral, Daily PRN, constipation, Starting on Thu10/20/23 at 2154, 1st line for treatment of constipation - give scheduled if no bowel movement in past 24 hours. sodium chloride 0.9 % infusion 5-250 mL/hr, IntraVENous, PRN, if patient receiving piggyback infusions and maintenance fluids are not ordered OR KVO fluids to protect IV site / prevent frequent line interruptions/ long duration, Starting on Thu10/20/23 at 2154, For piggyback infusion, administer at same rate as piggyback for a total of 25 mL. Enter 25 mL into dose field and piggyback rate into rate field of order. If piggyback is infusing at a rate less than 100 mL/hr, enter 25 mL into dose field and 100 mL/hr into rate field of order. For KVO fluids, enter rate of 20 mL/hr or less into rate field of order. sodium chloride 0.9% (NS) flush 10 mL 10 mL, IntraVENous, PRN, line care, Starting on Thu10/20/23 at 2154, After every IV line use Linked Groups Order Group 1: PHENobarbital (Luminal) tablet 32.4 mg (COMPLETED) 32.4 mg, Oral, Every 6 hours, First dose (after last modification) on Thu10/23/23 at 1600, For 4 doses, OK to HOLD if overly sedated Followed by PHENobarbital (Luminal) tablet 32.4 mg (COMPLETED)Jump to med 32.4 mg, Oral, Every 8 hours, First dose on Thu10/24/23 at 1600, For 4 doses, OK to HOLD if overly sedated Group 2: acetaminophen (Tylenol) tablet 650 mgJump to med 650 mg, Oral, Every 6 hours PRN, mild pain (1-3), fever, For temp greater than 100.4 F (38 C), Starting on Thu10/20/23 at 2153, Maximum dose of acetaminophen is 4000 mg from all sources in 24 hours. Or acetaminophen (Tylenol) suppository 650 mgJump to med 650 mg, Rectal, Every 6 hours PRN, mild pain (1-3), fever, For temp greater than 100.4 F (38 C), Starting on Thu10/20/23 at 2154, Administer if oral route cannot be used. Maximum dose of acetaminophen is 4000 mg from all sources in 24 hours. Group 3: LORazepam (Ativan) tablet 1 mgJump to med 1 mg, Oral, Every 1 hour PRN, other, For alcohol withdrawal, Starting on Thu10/20/23 at 2154, For CIWA score 8 to 10. Reassess CIWA one hour after each dose of medication and as needed. Or LORazepam (Ativan) injection 1 mgJump to med 1 mg, IntraVENous, Every 1 hour PRN, withdrawal, For alcohol withdrawal, Starting on Thu10/20/23 at 2153, For CIWA score 8 to 10. If both oral and intravenous CIWA medications ordered, use intravenous if unable to tolerate oral equivalent. Reassess CIWA one hour after each dose of medication and as needed. For IV doses dilute dose with 1ml NS. Or LORazepam (Ativan) tablet 2 mgJump to med 2 mg, Oral, Every 1 hour PRN, other, For alcohol withdrawal, Starting on Thu10/20/23 at 215, For CIWA score 11 to 15. Reassess CIWA one hour after each dose of medication and as needed. Or LORazepam (Ativan) injection 2 mgJump to med 2 mg, IntraVENous, Every 1 hour PRN, withdrawal, For alcohol withdrawal., Starting on Thu10/20/23 at 2153, For CIWA score 11 to 15. If both oral and intravenous CIWA medications ordered, use intravenous if unable to tolerate oral equivalent. Reassess CIWA one hour after each dose of medication and as needed. For IV doses dilute dose with 1ml NS. Or LORazepam (Ativan) tablet 3 mgJump to med 3 mg, Oral, Every 1 hour PRN, other, For alcohol withdrawal, Starting on Thu10/20/23 at 2154, For CIWA score 16 to 20. Reassess CIWA one hour after each dose of medication and as needed. Or LORazepam (Ativan) injection 3 mgJump to med 3 mg, IntraVENous, Every 1 hour PRN, withdrawal, For alcohol withdrawal, Starting on Thu10/20/23 at 4, For CIWA score 16 to 20. If both oral and intravenous CIWA medications ordered, use intravenous if unable to tolerate oral equivalent. Reassess CIWA one hour after each dose of medication and as needed. For IV doses dilute dose with 1ml NS. Or LORazepam (Ativan) tablet 4 mgJump to med 4 mg, Oral, Every 1 hour PRN, other, For alcohol withdrawal, Starting on Thu10/20/23 at 4, For CIWA score greater than 20. Reassess CIWA one hour after each dose of medication and as needed. Or LORazepam (Ativan) injection 4 mgJump to med 4 mg, IntraVENous, Every 1 hour PRN, withdrawal, For alcohol withdrawal, Starting on Thu10/20/23 at 2154, For CIWA score greater than 20. If both oral and intravenous CIWA medications ordered, use intravenous if unable to tolerate oral equivalent. Reassess CIWA one hour after each dose of medication and as needed. For IV doses dilute dose with 1ml NS. Group 4: ondansetron ODT (Zofran-ODT) disintegrating tablet 4 mgJump to med 4 mg, Oral, Every 4 hours PRN, nausea, vomiting, Starting on Thu10/20/23 at 2101, 1st Line. If inadequate response within 60 minutes, proceed to next-line agent or contact provider if no further options ordered. Patient should allow tablet to dissolve on tongue. Do not remove from blister pack until just before administering. Or ondansetron (Zofran) injection 4 mgJump to med 4 mg, IntraVENous, Every 6 hours PRN, nausea, vomiting, Starting on Thu10/20/23 at 2101, 1st Line. Give IV if patient is unable to take orally. If inadequate response within 60 minutes, proceed to next-line agent or contact provider if no further options ordered. Scheduled Medication Order 01/24/2024 01/25/2024 01/26/2024 Diclofenac Sodium (Voltaren) 1 % gel 4 g (CANCELED) 4 g, Topical, 2 times daily, First dose on Thu01/19/24 at 2100, Apply to affected area 0855 (Not Given - Provider: Raya Zavala RN - Reason: Patient/family refused)2100 (Not Given - Provider: Ary Evans RN - Reason: Patient/family refused) 0958 (Given - Provider: Monica Simons RN) diphenhydrAMINE (BENADryl) injection 25 mg (COMPLETED) 25 mg, IntraVENous, Once, On Thu01/26/24 at 0200, For 1 dose 0201 (Given - Provider: Tiny Yang RN) folic acid (Folvite) tablet 1 mg 1 mg, Oral, Daily, First dose on Thu01/15/24 at 1930 0852 (Given - Provider: Raya Zavala RN) 0957 (Given - Provider: Monica Simons RN) 0830 (Given - Provider: Dedra Raymundo RN) levothyroxine (Synthroid, Levoxyl) tablet 75 mcg 75 mcg, Oral, Daily before breakfast, First dose on Thu01/21/24 at 0600, Tube feeding (TF) interaction, obtain physician order to manage, recommend holding TF for 30 minutes before and after dose. 0530 (Given - Provider: Ary Evans RN) 0646 (Given - Provider: Ary Evans RN) 0621 (Given - Provider: Tiny Yang, MEGGAN) losartan (Cozaar) tablet 100 mg 100 mg, Oral, Daily, First dose on Thu01/20/24 at 1745 0852 (Given - Provider: Raya Zavala RN) 0957 (Given - Provider: Monica Simons RN) 0830 (Given - Provider: Dedra Raymundo, MEGGAN) magnesium chloride EC tablet 64 mg 64 mg (1 tablet), Oral, Daily with breakfast, First dose on Thu01/19/24 at 1300, Do not crush, chew, or split. 0851 (Given - Provider: Raya Zavala RN) 0958 (Given - Provider: Monica Simons RN) 0830 (Given - Provider: Dedra Raymundo, MEGGAN) miconazole (Micotin) 2 % powder Topical, 2 times daily, First dose on Thu01/15/24 at 2100, For use in irritated intertriginous areas. 0853 (Given - Provider: Raya Zavala RN)2099 (Not Given - Provider: Ary Evans RN - Reason: Patient/family refused) 1013 (Given - Provider: Monica Simons RN)2134 (Given - Provider: Tiny Yang RN) 0900 (Not Given - Provider: Dedra Raymundo RN - Reason: Patient/family refused) mirtazapine (Remeron) tablet 15 mg 15 mg, Oral, Nightly, First dose on Thu01/22/24 at 2100 2030 (Given - Provider: Ary Evans RN) 2130 (Given - Provider: Tiny Yang RN) nystatin (Mycostatin) cream (CANCELED) Topical, 2 times daily, First dose on Thu01/15/24 at 2100 0853 (Given - Provider: Raya Zavala RN)2029 (Given - Provider: Ary Evans RN) 0900 (Not Given - Provider: Monica Simons RN - Reason: Patient/family refused) pantoprazole (ProtoNix) EC tablet 40 mg 40 mg, Oral, 2 times daily, First dose on Thu01/24/24 at 1245, Do not crush, chew, or split. 1301 (Given - Provider: Raya Zavala RN) 0607 (Given - Provider: Ary Evans, RN)1503 (Given - Provider: Monica Simons RN) 0621 (Given - Provider: Tiny Yang, RN)1422 (Given - Provider: Dedra Raymundo, MEGGAN) sodium chloride tablet 1 g 1 g, Oral, 2 times daily with meals, First dose on Thu01/20/24 at 1745 0851 (Given - Provider: Raya Zavala RN)1702 (Given - Provider: Raya Zavala RN) 0958 (Given - Provider: Monica Simons RN)1826 (Given - Provider: Monica Simons RN) 0831 (Given - Provider: Dedra Raymundo, MEGGAN)1700 (Canceled Entry - Provider: Automatic Discharge Provider - Comment: Automatically canceled at discontinue of medication order) tamsulosin (Flomax) 24 hr capsule 0.4 mg 0.4 mg, Oral, Daily, First dose on Thu01/20/24 at 1745, Do not crush, chew, or split. 0852 (Given - Provider: Raya Zavala RN) 0957 (Given - Provider: Monica Simons RN) 0830 (Given - Provider: Dedra Raymundo, MEGGAN) thiamine (Vitamin B1) tablet 100 mg 100 mg, Oral, 3 times daily, First dose (after last modification) on Thu01/16/24 at 2100 0852 (Given - Provider: Raya Zavala RN)1301 (Given - Provider: Raya Zavala RN)2030 (Given - Provider: Ary Evans, MEGGAN) 0957 (Given - Provider: Monica Simons RN)1504 (Given - Provider: Monica Simons RN)2131 (Given - Provider: Tiny Yang, RN) 0830 (Given - Provider: Dedra Raymundo, MEGGAN)1422 (Given - Provider: Dedra Raymundo RN) PRN Medication Order 01/24/2024 01/25/2024 01/26/2024 acetaminophen (Tylenol) suppository 650 mg(Linked Group 1) 650 mg, Rectal, Every 6 hours PRN, mild pain (1-3), fever, For temp greater than 100.4 F (38 C), Starting on 01/15/24 at 1842, Administer if oral route cannot be used. Maximum dose of acetaminophen is 4000 mg from all sources in 24 hours. 0049 (See Alternative - Provider: Ary Evans RN)0528 (See Alternative - Provider: Ary Evans RN)113 (See Alternative - Provider: Raya Zavala RN)2030 (See Alternative - Provider: Ary Evans RN) 010 (See Alternative - Provider: Ary Evans RN)124 (See Alternative - Provider: Poornima Ortiz, MEGGAN)185 (See Alternative - Provider: Monica Simons, MEGGAN) 0921 (See Alternative - Provider: Dedra Raymundo, MEGGAN) acetaminophen (Tylenol) tablet 650 mg(Linked Group 1) 650 mg, Oral, Every 6 hours PRN, mild pain (1-3), fever, For temp greater than 100.4 F (38 C), Starting on Thu01/15/24 at 1842, Maximum dose of acetaminophen is 4000 mg from all sources in 24 hours. 0049 (Given - Provider: Ary Evans RN)0528 (Given - Provider: Ary Evans RN)113 (Given - Provider: Raya Zavala RN)2030 (Given - Provider: Ary Evans RN) 010 (Given - Provider: Ary Evans RN)124 (Given - Provider: Poornima Ortiz, MEGGAN)1859 (Given - Provider: Monica Simons, MEGGAN) 0921 (Given - Provider: Dedra Raymundo RN) calcium carbonate (Tums) chewable tablet 500 mg 500 mg, Oral, PRN, indigestion, heartburn, Starting on Mariela 01/21/24 at 2148 0049 (Given - Provider: Ary Evans RN)0851 (Given - Provider: Raya Zavala RN)2030 (Given - Provider: Ary Evans RN) 1008 (Given - Provider: Monica Simons, RN)1242 (Given - Provider: Poornima Ortiz, RN)1649 (Given - Provider: Monica Simons RN) 1156 (Given - Provider: Dedra Raymundo, MEGGAN) diphenhydrAMINE (BENADryl) tablet/capsule 50 mg 50 mg, Oral, Every 6 hours PRN, itching, Starting on Thu01/21/24 at 1555 0049 (Given - Provider: Ary Evans RN)0855 (Given - Provider: Raya Zavala RN)1702 (Given - Provider: Raya Zavala, MEGGAN) 0104 (Given - Provider: Ary Evans RN)1241 (Given - Provider: Poornima Ortiz RN)2317 (Given - Provider: Tiny Yang, MEGGAN) 0621 (Given - Provider: Tiny Yang, RN)1252 (Given - Provider: Dedra Raymundo, MEGGAN) diphenhydrAMINE-zinc acetate (BENADryl) cream Topical, 3 times daily PRN, itching, Starting on Mariela 01/21/24 at 2307 1852 (Given - Provider: Raya Zavala RN) 1012 (Given - Provider: Monica Simons RN)2133 (Given - Provider: Tiny Yang, MEGGAN) hydrOXYzine pamoate (Vistaril) capsule 25 mg 25 mg, Oral, Every 8 hours PRN, anxiety, Starting on Thu01/21/24 at 1555 0259 (Given - Provider: Ary Evans RN)1131 (Given - Provider: Raya Zavala RN)2030 (Given - Provider: Ary Evans RN) 0607 (Given - Provider: Ary Evans, MEGGAN)1503 (Given - Provider: Monica Simons RN) 0202 (Given - Provider: Tiny Yang RN)1028 (Given - Provider: Dedra Raymundo RN) labetalol (Normodyne,Trandate) injection 10 mg 10 mg, IntraVENous, Every 6 hours PRN, high blood pressure, SBP > 180 DBP > 100, Starting on Thu01/15/24 at 2337 LORazepam (Ativan) tablet 0.5 mg (CANCELED) 0.5 mg, Oral, Every 8 hours PRN, withdrawal, Starting on Thu01/20/24 at 0730 0542 (Given - Provider: Ary Evans, RN)1423 (Given - Provider: Raya Zavala, MEGGAN)2357 (Given - Provider: Ary Evans, RN) 1052 (Given - Provider: Monica Simons, RN) melatonin tablet 5 mg 5 mg, Oral, Nightly PRN, sleep, Starting on Mariela 01/21/24 at 2028 2132 (Given - Provider: Tiny Yang RN) ondansetron (Zofran) injection 4 mg(Linked Group 2) 4 mg, IntraVENous, Every 6 hours PRN, nausea, vomiting, Starting on Thu01/15/24 at 1842, 1st Line. Give IV if patient is unable to take orally. If inadequate response within 60 minutes, proceed to next-line agent or contact provider if no further options ordered. 1301 (See Alternative - Provider: Raya Zavala, MEGGAN) 1011 (See Alternative - Provider: Monica Simons RN) ondansetron ODT (Zofran-ODT) disintegrating tablet 4 mg(Linked Group 2) 4 mg, Oral, Every 8 hours PRN, nausea, vomiting, Starting on Thu01/15/24 at 1842, 1st Line. If inadequate response within 60 minutes, proceed to next-line agent or contact provider if no further options ordered. Patient should allow tablet to dissolve on tongue. Do not remove from blister pack until just before administering. 1301 (Given - Provider: Raya Zavala, MEGGAN) 1011 (Given - Provider: Monica Simons RN) polyethylene glycol (PEG) 3350 (Miralax) packet 17 g 17 g, Oral, Daily PRN, constipation, Starting on Thu01/15/24 at 1842, 1st line for treatment of constipation - give scheduled if no bowel movement in past 24 hours. promethazine (Phenergan) injection 25 mg(Linked Group 3) 25 mg, IntraMUSCular, Every 4 hours PRN, nausea, vomiting, Starting on Thu01/19/24 at 1255, Give IM if patient is unable to take orally or receive rectally. Not for IV administration. 0528 (See Alternative - Provider: Ary Evans RN)1851 (See Alternative - Provider: Raya Zavala, MEGGAN) 1504 (See Alternative - Provider: Monica Simons RN) 0922 (See Alternative - Provider: Dedra Raymundo, RN)1520 (See Alternative - Provider: Dedra Raymundo, RN) promethazine (Phenergan) suppository 25 mg(Linked Group 3) 25 mg, Rectal, Every 12 hours PRN, nausea, vomiting, Starting on Thu01/19/24 at 1255, Give TX if patient is unable to take orally. 0528 (See Alternative - Provider: Ary Evans RN)185 (See Alternative - Provider: Raya Zavala RN) 1504 (See Alternative - Provider: Monica Simons RN) 0922 (See Alternative - Provider: Dedra Raymundo, MEGGAN)1520 (See Alternative - Provider: Dedra Raymundo, RN) promethazine (Phenergan) tablet 25 mg(Linked Group 3) 25 mg, Oral, Every 6 hours PRN, nausea, vomiting, Starting on Thu01/19/24 at 1255 0528 (Given - Provider: Ary Evans RN)185 (Given - Provider: Raya Zavala RN) 1504 (Given - Provider: Monica Simons RN) 0922 (Given - Provider: Dedra Raymundo, MEGGAN)1520 (Given - Provider: Dedra Raymundo, MEGGNA) sodium chloride 0.9 % bolus 30 mL 30 mL, IntraVENous, at 180 mL/hr, Administer over 10 Minutes, PRN, for Remdesivir line flush, Starting on Thu01/15/24 at 1925, For 1 dose stomahesive in petrolatum (ET Mix) Topical, PRN, dry skin, Starting on Thu01/15/24 at 1918 tiZANidine (Zanaflex) tablet 4 mg 4 mg, Oral, Every 6 hours PRN, muscle spasms, Starting on Thu01/20/24 at 1718 0049 (Given - Provider: Ary Evans RN)0851 (Given - Provider: Raya Zavala RN)1702 (Given - Provider: Raya Zavala RN) 0104 (Given - Provider: Ary Evans RN)1008 (Not Given - Provider: Monica Simons RN - Reason: Other)2318 (Given - Provider: Tiny Yang RN) 0922 (Given - Provider: Dedra Raymundo, MEGGAN)1520 (Given - Provider: Dedra Raymundo RN) Linked Groups Order Group 1: acetaminophen (Tylenol) tablet 650 mgJump to med 650 mg, Oral, Every 6 hours PRN, mild pain (1-3), fever, For temp greater than 100.4 F (38 C), Starting on Thu01/15/24 at 1842, Maximum dose of acetaminophen is 4000 mg from all sources in 24 hours. Or acetaminophen (Tylenol) suppository 650 mgJump to med 650 mg, Rectal, Every 6 hours PRN, mild pain (1-3), fever, For temp greater than 100.4 F (38 C), Starting on Thu01/15/24 at 1842, Administer if oral route cannot be used. Maximum dose of acetaminophen is 4000 mg from all sources in 24 hours. Group 2: ondansetron ODT (Zofran-ODT) disintegrating tablet 4 mgJump to med 4 mg, Oral, Every 8 hours PRN, nausea, vomiting, Starting on Thu01/15/24 at 1842, 1st Line. If inadequate response within 60 minutes, proceed to next-line agent or contact provider if no further options ordered. Patient should allow tablet to dissolve on tongue. Do not remove from blister pack until just before administering. Or ondansetron (Zofran) injection 4 mgJump to med 4 mg, IntraVENous, Every 6 hours PRN, nausea, vomiting, Starting on Thu01/15/24 at 1842, 1st Line. Give IV if patient is unable to take orally. If inadequate response within 60 minutes, proceed to next-line agent or contact provider if no further options ordered. Group 3: promethazine (Phenergan) tablet 25 mgJump to med 25 mg, Oral, Every 6 hours PRN, nausea, vomiting, Starting on Thu01/19/24 at 1255 Or promethazine (Phenergan) suppository 25 mgJump to med 25 mg, Rectal, Every 12 hours PRN, nausea, vomiting, Starting on Thu01/19/24 at 1255, Give [place] if patient is unable to take orally. Or promethazine (Phenergan) injection 25 mgJump to med 25 mg, IntraMUSCular, Every 4 hours PRN, nausea, vomiting, Starting on Thu01/19/24 at 1255, Give IM if patient is unable to take orally or receive rectally. Not for IV administration. Scheduled Medication Order 03/07/2024 03/08/2024 03/09/2024 dextrose 5 % and sodium chloride 0.9 % infusion (COMPLETED) 100 mL/hr, IntraVENous, Once, On Thu03/08/24 at 2330, For 1 dose 2343 (New Bag - Provider: Monica Hernandez RN) 1000 (Rate/Dose Verify - Provider: Anna Ramey RN)1026 (Stopped - Provider: Anna Ramey RN) folic acid (Folvite) tablet 1 mg 1 mg, Oral, Daily, First dose on Thu03/09/24 at 0900 0950 (Given - Provid er: Anna Ramey RN) sertraline (Zoloft) tablet 50 mg 50 mg, Oral, Daily, First dose on Thu03/09/24 at 1015 1029 (Given - Provid er: Anna Ramey RN) sodium chloride 0.9 % bolus 1,000 mL (COMPLETED) 1,000 mL, IntraVENous, at 1,000 mL/hr, Administer over 1 Hours, Once, On Thu03/08/24 at 2330, For 1 dose 2342 (New Bag - Provider: Monica Hernandez RN) 0042 (Stopped - Provider: Monica Hernandez RN) thiamine (Vitamin B1) tablet 100 mg 100 mg, Oral, Daily, First dose on Thu03/09/24 at 0900 0950 (Given - Provid er: Anna Ramey RN) Continuous Medication Order 03/07/2024 03/08/2024 03/09/2024 dextrose 5 % and sodium chloride 0.45 % infusion 100 mL/hr, IntraVENous, Continuous, Starting on Thu03/09/24 at 1015 1030 (New Bag - Prov ider: Anna Ramey RN)1407 (Stopped - Provider: Anna Ramey RN) PRN Medication Order 03/07/2024 03/08/2024 03/09/2024 LORazepam (Ativan) injection 1 mg(Linked Group 1) 1 mg, IntraVENous, Every 1 hour PRN, withdrawal, For alcohol withdrawal, Starting on Thu03/08/24 at 2311, For CIWA score 8 to 10. If both oral and intravenous CIWA medications ordered, use intravenous if unable to tolerate oral equivalent. Reassess CIWA one hour after each dose of medication and as needed. For IV doses dilute dose with 1ml NS. 2348 (See Alternative - Provider: Monica Hernandez RN) 0102 (See Alternative - Provider: Monica Hernandez RN)0950 (See Alternative - Provider: Anna Ramey, RN) LORazepam (Ativan) injection 2 mg(Linked Group 1) 2 mg, IntraVENous, Every 1 hour PRN, withdrawal, For alcohol withdrawal., Starting on Thu03/08/24 at 2311, For CIWA score 11 to 15. If both oral and intravenous CIWA medications ordered, use intravenous if unable to tolerate oral equivalent. Reassess CIWA one hour after each dose of medication and as needed. For IV doses dilute dose with 1ml NS. 2348 (See Alternative - Provider: Monica Hernandez RN) 0102 (See Alternative - Provider: Monica Hernandez RN)0950 (See Alternative - Provider: Anna Ramey, RN) LORazepam (Ativan) injection 3 mg(Linked Group 1) 3 mg, IntraVENous, Every 1 hour PRN, withdrawal, For alcohol withdrawal, Starting on Thu03/08/24 at 2311, For CIWA score 16 to 20. If both oral and intravenous CIWA medications ordered, use intravenous if unable to tolerate oral equivalent. Reassess CIWA one hour after each dose of medication and as needed. For IV doses dilute dose with 1ml NS. 2348 (See Alternative - Provider: Monica Hernandez RN) 0102 (See Alternative - Provider: Monica Hernandez RN)0950 (See Alternative - Provider: Anna Ramey, RN) LORazepam (Ativan) injection 4 mg(Linked Group 1) 4 mg, IntraVENous, Every 1 hour PRN, withdrawal, For alcohol withdrawal, Starting on Thu03/08/24 at 2311, For CIWA score greater than 20. If both oral and intravenous CIWA medications ordered, use intravenous if unable to tolerate oral equivalent. Reassess CIWA one hour after each dose of medication and as needed. For IV doses dilute dose with 1ml NS. 2348 (See Alternative - Provider: Monica Hernandez RN) 0102 (See Alternative - Provider: Monica Hernandez RN)0950 (See Alternative - Provider: Anna Ramey, RN) LORazepam (Ativan) tablet 1 mg(Linked Group 1) 1 mg, Oral, Every 1 hour PRN, other, For alcohol withdrawal, Starting on Thu03/08/24 at 2311, For CIWA score 8 to 10. Reassess CIWA one hour after each dose of medication and as needed. 2348 (See Alternative - Provider: Monica Hernandez RN) 0102 (See Alternative - Provider: Monica Hernandez RN)0950 (See Alternative - Provider: Anna Ramey RN) LORazepam (Ativan) tablet 2 mg(Linked Group 1) 2 mg, Oral, Every 1 hour PRN, other, For alcohol withdrawal, Starting on Thu03/08/24 at 2311, For CIWA score 11 to 15. Reassess CIWA one hour after each dose of medication and as needed. 2348 (Given - Provider: Monica Hernandez RN - Comment: [id number]) 0102 (See Alternative - Provider: Monica Hernandez RN)0950 (See Alternative - Provider: Anna Ramey RN) LORazepam (Ativan) tablet 3 mg(Linked Group 1) 3 mg, Oral, Every 1 hour PRN, other, For alcohol withdrawal, Starting on Thu03/08/24 at 2311, For CIWA score 16 to 20. Reassess CIWA one hour after each dose of medication and as needed. 2348 (See Alternative - Provider: Monica Hernandez RN) 0102 (Given - Provider: Monica Hernandez RN)0950 (Given - Provider: Anna Ramey RN) LORazepam (Ativan) tablet 4 mg(Linked Group 1) 4 mg, Oral, Every 1 hour PRN, other, For alcohol withdrawal, Starting on Thu03/08/24 at 2311, For CIWA score greater than 20. Reassess CIWA one hour after each dose of medication and as needed. 2348 (See Alternative - Provider: Monica Hernandez RN) 0102 (See Alternative - Provider: Monica Hernandez RN)0950 (See Alternative - Provider: Anna Ramey RN) Linked Groups Order Group 1: LORazepam (Ativan) tablet 1 mgJump to med 1 mg, Oral, Every 1 hour PRN, other, For alcohol withdrawal, Starting on Thu03/08/24 at 2311, For CIWA score 8 to 10. Reassess CIWA one hour after each dose of medication and as needed. Or LORazepam (Ativan) injection 1 mgJump to med 1 mg, IntraVENous, Every 1 hour PRN, withdrawal, For alcohol withdrawal, Starting on Thu03/08/24 at 2311, For CIWA score 8 to 10. If both oral and intravenous CIWA medications ordered, use intravenous if unable to tolerate oral equivalent. Reassess CIWA one hour after each dose of medication and as needed. For IV doses dilute dose with 1ml NS. Or LORazepam (Ativan) tablet 2 mgJump to med 2 mg, Oral, Every 1 hour PRN, other, For alcohol withdrawal, Starting on Thu03/08/24 at 2311, For CIWA score 11 to 15. Reassess CIWA one hour after each dose of medication and as needed. Or LORazepam (Ativan) injection 2 mgJump to med 2 mg, IntraVENous, Every 1 hour PRN, withdrawal, For alcohol withdrawal., Starting on Thu03/08/24 at 2311, For CIWA score 11 to 15. If both oral and intravenous CIWA medications ordered, use intravenous if unable to tolerate oral equivalent. Reassess CIWA one hour after each dose of medication and as needed. For IV doses dilute dose with 1ml NS. Or LORazepam (Ativan) tablet 3 mgJump to med 3 mg, Oral, Every 1 hour PRN, other, For alcohol withdrawal, Starting on Thu03/08/24 at 2311, For CIWA score 16 to 20. Reassess CIWA one hour after each dose of medication and as needed. Or LORazepam (Ativan) injection 3 mgJump to med 3 mg, IntraVENous, Every 1 hour PRN, withdrawal, For alcohol withdrawal, Starting on Thu03/08/24 at 2311, For CIWA score 16 to 20. If both oral and intravenous CIWA medications ordered, use intravenous if unable to tolerate oral equivalent. Reassess CIWA one hour after each dose of medication and as needed. For IV doses dilute dose with 1ml NS. Or LORazepam (Ativan) tablet 4 mgJump to med 4 mg, Oral, Every 1 hour PRN, other, For alcohol withdrawal, Starting on Thu03/08/24 at 2311, For CIWA score greater than 20. Reassess CIWA one hour after each dose of medication and as needed. Or LORazepam (Ativan) injection 4 mgJump to med 4 mg, IntraVENous, Every 1 hour PRN, withdrawal, For alcohol withdrawal, Starting on Thu03/08/24 at 2311, For CIWA score greater than 20. If both oral and intravenous CIWA medications ordered, use intravenous if unable to tolerate oral equivalent. Reassess CIWA one hour after each dose of medication and as needed. For IV doses dilute dose with 1ml NS. Scheduled Medication Order 04/02/2024 04/03/2024 04/04/2024 PHENobarbital tablet 97.2 mg (COMPLETED) 97.2 mg, Oral, Once, On Thu04/04/24 at 1620, For 1 dose 1646 (Given - Provid er: Norma Platt RN) sodium chloride 0.9 % bolus 1,000 mL 1,000 mL, IntraVENous, at 1,000 mL/hr, Administer over 1 Hours, Once, On Thu04/04/24 at 1705, For 1 dose 1710 (New Bag - Prov ider: Norma Platt RN)1810 (Stopped - Provider: Norma Platt RN) Scheduled Medication Order 04/28/2024 04/29/2024 04/30/2024 Diclofenac Sodium (Voltaren) 1 % gel 2 g 2 g, Topical, 2 times daily, First dose on Thu04/28/24 at 1330, Apply to affected area 1625 (Given - Provider: Haydee Beard LPN)2113 (Given - Provider: Joanna Lopez RN) 0848 (Given - Provider: Haydee Beard LPN)1958 (Given - Provider: José Luis Mckeon, MEGGAN) 0740 (Given - Provider: Jonny Johnson, MEGGAN)0900 (Canceled Entry - Provider: Jonny Johnson, MEGGAN) folic acid (Folvite) tablet 1 mg 1 mg, Oral, Daily, First dose (after last modification) on Thu04/22/24 at 2140 0840 (Given - Provider: Haydee Beard LPN) 0848 (Given - Provider: Haydee Beard LPN) 0926 (Given - Provider: Jonny Johnson, MEGGAN) levothyroxine (Synthroid, Levoxyl) tablet 75 mcg 75 mcg, Oral, Daily before breakfast, First dose on 04/23/24 at 0600, Tube feeding (TF) interaction, obtain physician order to manage, recommend holding TF for 30 minutes before and after dose. 0426 (Given - Provider: Joanna Lopez RN) 0441 (Given - Provider: Joanna Lopez RN) 0550 (Given - Provider: José Luis Mckeon RN) losartan (Cozaar) tablet 100 mg 100 mg, Oral, Daily, First dose on 04/23/24 at 0900 0840 (Given - Provider: Haydee Beard LPN) 0848 (Given - Provider: Haydee Beard LPN) 0926 (Given - Provider: Jonny Johnson RN) mirtazapine (Remeron) tablet 15 mg 15 mg, Oral, Nightly, First dose on Thu04/22/24 at 2300 2113 (Given - Provider: Joanna Lopez RN) 1956 (Given - Provider: José Luis Mckeon RN) pantoprazole (ProtoNix) EC tablet 40 mg 40 mg, Oral, 2 times daily before meals, First dose on 04/23/24 at 0700, Do not crush, chew, or split. 0427 (Given - Provider: Joanna Lopez RN)0700 (Not Given - Provider: Haydee Beard LPN - Reason: Order parameters not met)1513 (Given - Provider: Morteza Hollis RN) 0441 (Given - Provider: Joanna Lopez RN)0630 (Given - Provider: Joanna Lopez RN)1608 (Given - Provider: Haydee Beard LPN) 0550 (Given - Provider: José Luis Mckeon RN)1600 (Canceled Entry - Provider: Automatic Discharge Provider - Comment: Automatically canceled at discontinue of medication order) PHENobarbital tablet 32.4 mg (CANCELED) 32.4 mg, Oral, Every 8 hours, First dose (after last modification) on Mariela 04/28/24 at 1800 1802 (Given - Provider: Haydee Beard LPN) 0205 (Given - Provider: Joanna Lopez RN)1050 (Given - Provider: Haydee Beard LPN)1724 (Given - Provider: Haydee Beard LPN) 0205 (Given - Provider: José Luis Mckeon, MEGGAN) PHENobarbital tablet 64.8 mg (CANCELED) 64.8 mg, Oral, Every 8 hours, First dose (after last modification) on Thu04/27/24 at 1800 0229 (Given - Provider: Joanna Lopez RN)1044 (Given - Provider: Haydee Beard LPN) sertraline (Zoloft) tablet 50 mg 50 mg, Oral, Daily, First dose on Thu04/25/24 at 1530 0840 (Given - Provider: Haydee Beard LPN) 0848 (Given - Provider: Haydee Beard LPN) 0926 (Given - Provider: Jonny Johnson, MEGGAN) tamsulosin (Flomax) 24 hr capsule 0.4 mg 0.4 mg, Oral, Daily, First dose on Thu04/23/24 at 0900, Do not crush, chew, or split. 0840 (Given - Provider: Haydee Beard LPN) 0848 (Given - Provider: Haydee Beard LPN) 0926 (Given - Provider: Jonny Johnson RN) thiamine (Vitamin B1) tablet 100 mg 100 mg, Oral, Daily, First dose (after last modification) on Thu04/22/24 at 2140 0840 (Given - Provider: Haydee Beard LPN) 0848 (Given - Provider: Haydee Beard LPN) 0926 (Given - Provider: Jonny Johnson RN) PRN Medication Order 04/28/2024 04/29/2024 04/30/2024 acetaminophen (Tylenol) suppository 650 mg(Linked Group 1) 650 mg, Rectal, Every 6 hours PRN, mild pain (1-3), fever, For temp greater than 100.4 F (38 C), Starting on Thu04/22/24 at 2246, Administer if oral route cannot be used. Maximum dose of acetaminophen is 4000 mg from all sources in 24 hours. 0426 (See Alternative - Provider: Joanna Lopez RN)2329 (See Alternative - Provider: Joanna Lopez RN) 1955 (See Alternative - Provider: José Luis Mckeon RN) 0740 (See Alternative - Provider: Jonny Johnson RN) acetaminophen (Tylenol) tablet 650 mg(Linked Group 1) 650 mg, Oral, Every 6 hours PRN, mild pain (1-3), fever, For temp greater than 100.4 F (38 C), Starting on Thu04/22/24 at 2246, Maximum dose of acetaminophen is 4000 mg from all sources in 24 hours. 0426 (Given - Provider: Joanna Lopez, RN)2329 (Given - Provider: Joanna Lopez, RN) 1955 (Given - Provider: José Luis Mckeon RN) 0740 (Given - Provider: Jonny Johnson RN) albuterol 108 (90 Base) MCG/ACT inhaler 2 puff 2 puff, Inhalation, Every 6 hours PRN, shortness of breath, wheezing, Starting on Thu04/22/24 at 2246 dextrose 5 % infusion 100 mL/hr, IntraVENous, PRN, Blood sugar less than 70mg/dL, Starting on Thu04/22/24 at 2246, Start infusion following administration of dextrose 50% or glucagon. dextrose 50 % solution 12.5 g 12.5 g, IntraVENous, PRN, low blood sugar, Blood glucose less than 70 mg/dL and patient NOT ALERT or NPO., Starting on Thu04/22/24 at 2246, If patient does not respond within 5 minutes, repeat dose x1. Start D5W at 100 mL/hour until ordering provider can be reached. Repeat blood glucose in 15 minutes. If blood glucose is less than 70 mg/dL, repeat treatment and recheck blood glucose in 15 minutes x2. If using Glucostabilizer, dose as instructed per system. glucagon (human recombinant) injection 1 mg 1 mg, IntraMUSCular, PRN, low blood sugar, Blood glucose less than 70 mg/dL and patient NOT ALERT or NPO and does not have IV access., Starting on Thu04/22/24 at 2246, After administration, attempt intravenous access and start D5W at 100 mL/hr. Repeat blood glucose in 15 minutes x2 and notify provider. glucose oral gel 15 g 15 g, Oral, As needed, low blood sugar, Starting on Thu04/22/24 at 2246, If blood glucose less than 50 mg/dL and patient ALERT and NOT NPO, give 2 tubes glucose gel. If blood glucose less than 70 mg/dL and patient ALERT and NOT NPO, give 1 tube glucose gel. Repeat blood glucose in 15 minutes. If blood glucose is less than 70 mg/dL, repeat treatment and recheck blood glucose in 15 minutes x2 and notify provider. hydrALAZINE (Apresoline) injection 10 mg 10 mg, IntraVENous, Every 4 hours PRN, high blood pressure, SBP >175 or DBP >90, Starting on Thu04/22/24 at 2246 hydrOXYzine pamoate (Vistaril) capsule 25 mg 25 mg, Oral, Every 6 hours PRN, itching, anxiety, Starting on Thu04/28/24 at 1833 2113 (Given - Provider: Joanna Lopez RN) 0443 (Given - Provider: Joanna Lopez RN)1050 (Given - Provider: Haydee Beard LPN)1724 (Given - Provider: Haydee Beard LPN) 0008 (Given - Provider: José Luis Mckeon, MEGGAN)0554 (Given - Provider: José Luis Mckeon, MEGGAN)1151 (Given - Provider: Jonny Johnson RN) ondansetron (Zofran) injection 4 mg(Linked Group 2) 4 mg, IntraVENous, Every 6 hours PRN, nausea, vomiting, Starting on Thu04/22/24 at 2246, 1st Line. Give IV if patient is unable to take orally. If inadequate response within 60 minutes, proceed to next-line agent or contact provider if no further options ordered. 0430 (See Alternative - Provider: Joanna Lopez RN)1513 (Given - Provider: Morteza Hollis, RN) ondansetron ODT (Zofran-ODT) disintegrating tablet 4 mg(Linked Group 2) 4 mg, Oral, Every 8 hours PRN, nausea, vomiting, Starting on Thu04/22/24 at 2246, 1st Line. If inadequate response within 60 minutes, proceed to next-line agent or contact provider if no further options ordered. Patient should allow tablet to dissolve on tongue. Do not remove from blister pack until just before administering. 0430 (Given - Provider: Joanna Lopez RN)1513 (See Alternative - Provider: Morteza Hollis, RN) polyethylene glycol (PEG) 3350 (Miralax) packet 17 g 17 g, Oral, Daily PRN, constipation, Starting on Thu04/22/24 at 2246, 1st line for treatment of constipation - give scheduled if no bowel movement in past 24 hours. tiZANidine (Zanaflex) tablet 4 mg 4 mg, Oral, Every 6 hours PRN, muscle spasms, Starting on Mariela 04/28/24 at 1834 2113 (Given - Provider: Joanna Lopez, RN) 0443 (Given - Provider: Joanna Lopez RN)1050 (Given - Provider: Haydee Beard LPN)1724 (Given - Provider: Haydee Beard LPN) 0008 (Given - Provider: José Luis Mckeon, MEGGAN)0554 (Given - Provider: José Luis Mckeon, RN)1209 (Given - Provider: Jonny Johnson RN) Linked Groups Order Group 1: acetaminophen (Tylenol) tablet 650 mgJump to med 650 mg, Oral, Every 6 hours PRN, mild pain (1-3), fever, For temp greater than 100.4 F (38 C), Starting on Thu04/22/24 at 2246, Maximum dose of acetaminophen is 4000 mg from all sources in 24 hours. Or acetaminophen (Tylenol) suppository 650 mgJump to med 650 mg, Rectal, Every 6 hours PRN, mild pain (1-3), fever, For temp greater than 100.4 F (38 C), Starting on Thu04/22/24 at 2246, Administer if oral route cannot be used. Maximum dose of acetaminophen is 4000 mg from all sources in 24 hours. Group 2: ondansetron ODT (Zofran-ODT) disintegrating tablet 4 mgJump to med 4 mg, Oral, Every 8 hours PRN, nausea, vomiting, Starting on Thu04/22/24 at 2246, 1st Line. If inadequate response within 60 minutes, proceed to next-line agent or contact provider if no further options ordered. Patient should allow tablet to dissolve on tongue. Do not remove from blister pack until just before administering. Or ondansetron (Zofran) injection 4 mgJump to med 4 mg, IntraVENous, Every 6 hours PRN, nausea, vomiting, Starting on Thu04/22/24 at 2246, 1st Line. Give IV if patient is unable to take orally. If inadequate response within 60 minutes, proceed to next-line agent or contact provider if no further options ordered. Scheduled Medication Order 07/08/2024 07/09/2024 07/10/2024 amLODIPine (Norvasc) tablet 2.5 mg 2.5 mg, Oral, Daily, First dose on Thu07/05/24 at 0900 0822 (Given - Provider: Edilberto Grove RN) 0824 (Given - Provider: Edilberto Grove RN) 0849 (Given - Provider: Edilberto Grove RN) dicyclomine (Bentyl) tablet 20 mg 20 mg, Oral, 3 times daily, First dose on Thu07/05/24 at 0900 0830 (Given - Provider: Edilberto Grove RN)1358 (Given - Provider: Edilberto Grove RN)2019 (Given - Provider: Diana Chisholm RN) 0823 (Given - Provider: Edilberto Grove RN)1358 (Given - Provider: Edilberto Grove RN)212 (Given - Provider: Ayesha Ferrari RN) 0848 (Given - Provider: Edilberto Grove RN)1306 (Given - Provider: Edilberto Grove RN) gabapentin (Neurontin) capsule 300 mg 300 mg, Oral, 3 times daily, First dose (after last modification) on Thu07/05/24 at 2100 0822 (Given - Provider: Edilberto Grove RN)1358 (Given - Provider: Edilberto Grove RN)2019 (Given - Provider: Diana Chisholm RN) 08 (Given - Provider: Edilberto Grove RN)1358 (Given - Provider: Edilberto Grove RN)212 (Given - Provider: Ayesha Ferrari RN) 0849 (Given - Provider: Edilberto Grove RN)1306 (Given - Provider: Edilberto Grove RN) heparin injection 5,000 Units 5,000 Units, SubCUTAneous, Every 8 hours scheduled (3 times per day), First dose on Thu07/05/24 at 0600 0559 (Given - Provider: Jazmin Evans RN)1357 (Given - Provider: Edilberto Grove RN)2019 (Given - Provider: Diana Chisholm RN) 0544 (Given - Provider: Diana Chisholm RN)135 (Given - Provider: Edilberto Grove RN)212 (Given - Provider: Ayesha Ferrari RN) 0547 (Given - Provider: Ayesha Ferrari RN)1306 (Given - Provider: Edilberto Grove RN) loperamide (Imodium) capsule 2 mg 2 mg, Oral, 2 times daily, First dose (after last modification) on Thu07/06/24 at 2100, After each loose stool 0823 (Given - Provider: Edilberto Grove RN)2019 (Given - Provider: Diana Chisholm RN) 08 (Given - Provider: Edilberto Grove RN)2123 (Given - Provider: Ayesha Ferrari RN) 0849 (Given - Provider: Edilberto Grove RN) LORazepam (Ativan) tablet 0.5 mg (COMPLETED) 0.5 mg, Oral, Once, On Thu07/10/24 at 0000, For 1 dose 0010 (Given - Provider: Ayesha Ferrari RN) losartan (Cozaar) tablet 100 mg 100 mg, Oral, Daily, First dose on Thu07/05/24 at 0900 0823 (Given - Provider: Edilberto Grove RN) 0824 (Given - Provider: Edilberto Grove RN) 0849 (Given - Provider: Edilberto Grove RN) magnesium chloride EC tablet 64 mg 64 mg (1 tablet), Oral, Daily with breakfast, First dose on Thu07/05/24 at 0800, Do not crush, chew, or split. 0824 (Given - Provider: Edilberto Grove RN) 08 (Given - Provider: Edilberto Grove RN) 0849 (Given - Provider: Edilberto Grove RN) mirtazapine (Remeron) tablet 15 mg 15 mg, Oral, Nightly, First dose on Thu07/05/24 at 0130 2019 (Given - Provider: Diana Chisholm RN) 2123 (Given - Provider: Ayesha Ferrari RN) pantoprazole (ProtoNix) EC tablet 40 mg 40 mg, Oral, Daily before breakfast, First dose on Thu07/05/24 at 0600, Do not crush, chew, or split. 0559 (Given - Provider: Jazmin Evans RN) 0544 (Given - Provider: Diana Chisholm RN) 0541 (Given - Provider: Ayesha Ferrari RN) PHENobarbital (Luminal) injection 100 mg (COMPLETED)(Linked Group 1) 100 mg, IntraVENous, Every 6 hours, First dose on Thu07/07/24 at 0830, For 4 doses, Administer no faster than 1 mg/kg/minute, to a max of 60 mg/min in adults. Hold for sedation. 0319 (Given - Provider: Jazmin Evans RN) PHENobarbital (Luminal) injection 100 mg (CANCELED)(Linked Group 1) 100 mg, IntraVENous, Every 8 hours, First dose on Thu07/08/24 at 1030, For 4 doses, Administer no faster than 1 mg/kg/minute, to a max of 60 mg/min in adults. Hold for sedation. 1030 (Given - Provider: Edilberto Grove RN) PHENobarbital (Luminal) injection 100 mg (COMPLETED) 100 mg, IntraVENous, Every 12 hours, First dose (after last modification) on Thu07/08/24 at 2230, For 2 doses, Administer no faster than 1 mg/kg/minute, to a max of 60 mg/min in adults. Hold for sedation. 2223 (Given - Provider: Diana Chisholm RN) 1028 (Given - Provider: Edilberto Grove RN) sertraline (Zoloft) tablet 100 mg 100 mg, Oral, Daily, First dose (after last modification) on Thu07/09/24 at 0900 0824 (Given - Provider: Edilberto Grove RN) 0849 (Given - Provider: Edilberto Grove RN) sertraline (Zoloft) tablet 50 mg (CANCELED) 50 mg, Oral, Daily, First dose on Thu07/05/24 at 1000 0823 (Given - Provider: Edilberto Grove, MEGGAN) spironolactone (Aldactone) tablet 25 mg 25 mg, Oral, Every morning, First dose on Thu07/05/24 at 0900 0823 (Given - Provider: Edilberto Grove RN) 0823 (Given - Provider: Edilberto Grove, MEGGAN) 0849 (Given - Provider: Edilberto Grove, MEGGAN) tamsulosin (Flomax) 24 hr capsule 0.4 mg 0.4 mg, Oral, Daily, First dose on Thu07/05/24 at 0900, Do not crush, chew, or split. 0823 (Given - Provider: Edilberot Grove RN) 0823 (Given - Provider: Edilberto Grove RN) 0849 (Given - Provider: Edilberto Grove RN) PRN Medication Order 07/08/2024 07/09/2024 07/10/2024 acetaminophen (Tylenol) tablet 500 mg 500 mg, Oral, Every 6 hours PRN, mild pain (1-3), fever, For temp greater than 100.4 F (38 C), Starting on Thu07/05/24 at 0134, Maximum dose of acetaminophen is 4000 mg from all sources in 24 hours. 0333 (Given - Provider: Diana Chisholm RN)1545 (Given - Provider: Edilberto Grove RN) 0355 (Given - Provider: Ayesha Ferrari, MEGGAN)1305 (Given - Provider: Edilberto Grove RN) albuterol 108 (90 Base) MCG/ACT inhaler 2 puff 2 puff, Inhalation, Every 6 hours PRN, shortness of breath, wheezing, Starting on Thu07/05/24 at 0117 ipratropium-albuterol (Duo-Neb) 0.5-2.5 mg/3 mL nebulizer solution 3 mL 3 mL, Nebulization, Every 4 hours PRN, wheezing, Starting on Thu07/06/24 at 1645 LORazepam (Ativan) tablet 1 mg 1 mg, Oral, Every 4 hours PRN, anxiety, Starting on Thu07/05/24 at 0132 1359 (Given - Provider: Edilberto Grove RN) 0333 (Given - Provider: Diana Chisholm RN)1545 (Given - Provider: Edilberto Grove RN)2124 (Given - Provider: Ayesha Ferrari, MEGGAN) 0354 (Given - Provider: Ayesha Ferrari RN) nicotine polacrilex (Commit) lozenge 2 mg 2 mg, Mouth/Throat, Every 2 hour PRN, smoking cessation, Starting on Thu07/05/24 at 0119 ondansetron (Zofran) injection 4 mg(Linked Group 2) 4 mg, IntraVENous, Every 6 hours PRN, nausea, vomiting, Starting on Thu07/05/24 at 0134, 1st Line. Give IV if patient is unable to take orally. If inadequate response within 60 minutes, proceed to next-line agent or contact provider if no further options ordered. ondansetron ODT (Zofran-ODT) disintegrating tablet 4 mg(Linked Group 2) 4 mg, Oral, Every 8 hours PRN, nausea, vomiting, Starting on Thu07/05/24 at 0134, 1st Line. If inadequate response within 60 minutes, proceed to next-line agent or contact provider if no further options ordered. Patient should allow tablet to dissolve on tongue. Do not remove from blister pack until just before administering. polyethylene glycol (PEG) 3350 (Miralax) packet 17 g 17 g, Oral, Daily PRN, constipation, Starting on Thu07/05/24 at 0134, 1st line for treatment of constipation - give scheduled if no bowel movement in past 24 hours. Linked Groups Order Group 1: PHENobarbital (Luminal) injection 100 mg () 100 mg, IntraVENous, Every 4 hours, First dose (after last modification) on Thu07/06/24 at 1630, For 4 doses, Administer no faster than 1 mg/kg/minute, to a max of 60 mg/min in adults. Hold for sedation. Followed by PHENobarbital (Luminal) injection 100 mg (COMPLETED)Jump to med 100 mg, IntraVENous, Every 6 hours, First dose on Mariela 07/07/24 at 0830, For 4 doses, Administer no faster than 1 mg/kg/minute, to a max of 60 mg/min in adults. Hold for sedation. Followed by PHENobarbital (Luminal) injection 100 mg (CANCELED)Jump to med 100 mg, IntraVENous, Every 8 hours, First dose on Thu07/08/24 at 1030, For 4 doses, Administer no faster than 1 mg/kg/minute, to a max of 60 mg/min in adults. Hold for sedation. Followed by PHENobarbital (Luminal) injection 100 mg (CANCELED) 100 mg, IntraVENous, Every 12 hours, First dose on Thu07/09/24 at 1830, For 4 doses, Administer no faster than 1 mg/kg/minute, to a max of 60 mg/min in adults. Hold for sedation. Group 2: ondansetron ODT (Zofran-ODT) disintegrating tablet 4 mgJump to med 4 mg, Oral, Every 8 hours PRN, nausea, vomiting, Starting on Thu07/05/24 at 0134, 1st Line. If inadequate response within 60 minutes, proceed to next-line agent or contact provider if no further options ordered. Patient should allow tablet to dissolve on tongue. Do not remove from blister pack until just before administering. Or ondansetron (Zofran) injection 4 mgJump to med 4 mg, IntraVENous, Every 6 hours PRN, nausea, vomiting, Starting on Thu07/05/24 at 0134, 1st Line. Give IV if patient is unable to take orally. If inadequate response within 60 minutes, proceed to next-line agent or contact provider if no further options ordered. Scheduled Medication Order 12/23/2022 12/24/2022 12/25/2022 amLODIPine (Norvasc) tablet 2.5 mg 2.5 mg, Oral, Daily, First dose on Thu12/23/22 at 0800 0847 (Given - Provider: Lyudmila Shane RN) 0825 (Given - Provider: Lyudmila Shane RN) 0804 (Given - Provider: Jose Luna, MEGGAN) dicyclomine (Bentyl) capsule 20 mg 20 mg, Oral, 3 times daily before meals, First dose on Thu12/22/22 at 2115 0616 (Given - Provider: Gill Briggs RN)1050 (Given - Provider: Lyudmila Shane RN)1535 (Given - Provider: Lyudmila Shane RN) 0613 (Given - Provider: Gill Briggs RN)1045 (Given - Provider: Lyudmila Shane RN)1457 (Given - Provider: Lyudmila Shane RN) 0543 (Given - Provider: Viviana Rosenberg RN)1100 (Canceled Entry - Provider: Jose Luna RN - Comment: discharged) enoxaparin (Lovenox) syringe 30 mg 30 mg, SubCUTAneous, Every 24 hours scheduled (Daily), First dose (after last reorder) on Thu12/22/22 at 2240, Renal dosing, Indication of Use: Prophylaxis-DVT/PE, Indications: Prophylaxis of Venous Thromboembolism 0825 (Given - Provider: Lyudmila Shane RN) 0804 (Given - Provider: Jose Luna, MEGGAN) folic acid (Folvite) tablet 1 mg 1 mg, Oral, Daily, First dose (after last reorder) on Thu12/22/22 at 2240 0847 (Given - Provider: Lyudmila Shane RN) 0825 (Given - Provider: Lyudmila Shane RN) 0804 (Given - Provider: Jose Luna RN) levothyroxine (Synthroid, Levoxyl) tablet 50 mcg 50 mcg, Oral, Daily before breakfast, First dose on Thu12/23/22 at 0700, Tube feeding (TF) interaction, obtain physician order to manage, recommend holding TF for 30 minutes before and after dose. 0615 (Given - Provider: Gill Briggs RN) 0612 (Given - Provider: Gill Briggs RN) 0543 (Given - Provider: Viviana Rosenberg RN) losartan (Cozaar) tablet 100 mg 100 mg, Oral, Daily, First dose on Thu12/23/22 at 0900, [employer] approved therapeutic substitution for Olmesartan 0847 (Given - Provider: Lyudmila Shane RN)1508 (Held by provider - Provider: LEAH Matias CNP - Reason: Change in vital signs) 0900 (Dose Auto Held - Provider: LEAH Matias CNP) 0900 (Dose Auto Held - Provider: LEAH Matias CNP)1254 (Unheld by provider - Provider: Automatic Discharge Provider) metFORMIN (Glucophage) tablet 1,000 mg 1,000 mg, Oral, Daily with breakfast, First dose on Thu12/23/22 at 0800 0055 (Held by provider - Provider: Gill Briggs RN - Reason: Fluid imbalance)0800 (Dose Auto Held) 0800 (Dose Auto Held) 0800 (Dose Auto Held)1254 (Unheld by provider - Provider: Automatic Discharge Provider) oxyCODONE (Roxicodone) immediate release tablet 10 mg (CANCELED) 10 mg, Oral, 3 times daily, First dose on Thu12/22/22 at 2115 0003 (Given - Provider: Josephine Valverde RN - Comment: not needed per pt given prior morphine admin)0847 (Given - Provider: Lyudmila Shane RN) oxyCODONE (Roxicodone) immediate release tablet 10 mg 10 mg, Oral, Every 6 hours, First dose (after last modification) on Thu12/23/22 at 1500 1425 (Given - Provider: Lyudmila Shane RN)2111 (Given - Provider: Gill Briggs RN) 0334 (Given - Provider: Gill Briggs RN)0825 (Given - Provider: Lyudmila Shane RN)1457 (Given - Provider: Lyudmila Shane RN)2006 (Given - Provider: Viviana Rosenberg, MEGGAN) 022 (Given - Provider: Viviana Rosenberg, MEGGAN)0807 (Given - Provider: Jose Luna, RN) pantoprazole (ProtoNix) EC tablet 40 mg 40 mg, Oral, Daily, First dose on Thu12/23/22 at 0900, Do not crush, chew, or split. 0852 (Given - Provider: Lyudmila Shane RN) 0825 (Given - Provider: Lyudmila Shane RN) 0804 (Given - Provider: Jose Luna, RN) tamsulosin (Flomax) 24 hr capsule 0.4 mg 0.4 mg, Oral, Daily, First dose on Thu12/23/22 at 0900, Do not crush, chew, or split. 0852 (Given - Provider: Lyudmila Shane RN) 0825 (Given - Provider: Lyudmila Shane RN) 0804 (Given - Provider: oJse Luna, RN) Continuous Medication Order 12/23/2022 12/24/2022 12/25/2022 lactated Ringer's infusion 100 mL/hr, IntraVENous, Administer over 10 Hours, Continuous, Starting on Thu12/23/22 at 1515 1535 (New Bag - Provider: Lyudmila Shane RN) 0122 (Rate/Dose Verify - Provider: Gill Briggs RN)0613 (New Bag - Provider: Gill Briggs RN)1046 (New Bag - Provider: Lyudmila Shane RN)2046 (Stopped - Provider: Viviana Rosenberg RN) sodium chloride 0.9 % infusion (CANCELED) 100 mL/hr, IntraVENous, Continuous, Starting on Thu12/22/22 at 2110 0652 (Rate/Dose Verify - Provider: Gill Briggs RN)0852 (New Bag - Provider: Lyudmila Shane, RN)1535 (Stopped - Provider: Lyudmila Shane, RN) PRN Medication Order 12/23/2022 12/24/2022 12/25/2022 acetaminophen (Tylenol) suppository 650 mg(Linked Group 1) 650 mg, Rectal, Every 6 hours PRN, mild pain (1-3), fever, For temp greater than 100.4 F (38 C), Starting on Thu12/22/22 at 2108, Administer if oral route cannot be used. Maximum dose of acetaminophen is 4000 mg from all sources in 24 hours. acetaminophen (Tylenol) tablet 650 mg(Linked Group 1) 650 mg, Oral, Every 6 hours PRN, mild pain (1-3), fever, For temp greater than 100.4 F (38 C), Starting on Thu12/22/22 at 2108, Maximum dose of acetaminophen is 4000 mg from all sources in 24 hours. albuterol (2.5 MG/3ML) 0.083% nebulizer solution 2.5 mg 2.5 mg, Nebulization, As needed, wheezing, shortness of breath, Starting on Thu12/23/22 at 0055 morphine injection 2 mg 2 mg, IntraVENous, Every 4 hours PRN, severe pain (7-10), Starting on Thu12/22/22 at 2112 0332 (Given - Provider: Gill Briggs RN) ondansetron (Zofran) injection 4 mg(Linked Group 2) 4 mg, IntraVENous, Every 6 hours PRN, nausea, vomiting, Starting on Thu12/22/22 at 2108, 1st Line. Give IV if patient is unable to take orally. If inadequate response within 60 minutes, proceed to next-line agent or contact provider if no further options ordered. ondansetron ODT (Zofran-ODT) disintegrating tablet 4 mg(Linked Group 2) 4 mg, Oral, Every 4 hours PRN, nausea, vomiting, Starting on Thu12/22/22 at 2108, 1st Line. If inadequate response within 60 minutes, proceed to next-line agent or contact provider if no further options ordered. Patient should allow tablet to dissolve on tongue. Do not remove from blister pack until just before administering. polyethylene glycol (PEG) 3350 (Miralax) packet 17 g 17 g, Oral, Daily PRN, constipation, Starting on Thu12/23/22 at 0055, 1st line for treatment of constipation - give scheduled if no bowel movement in past 24 hours. Linked Groups Order Group 1: acetaminophen (Tylenol) tablet 650 mgJump to med 650 mg, Oral, Every 6 hours PRN, mild pain (1-3), fever, For temp greater than 100.4 F (38 C), Starting on Thu12/22/22 at 2108
Maximum dose of acetaminophen is 4000 mg from all sources in 24 hours.
Or acetaminophen (Tylenol) suppository 650 mgJump to med 650 mg, Rectal, Every 6 hours PRN, mild pain (1-3), fever, For temp greater than 100.4 F (38 C), Starting on Thu12/22/22 at 2108
Administer if oral route cannot be used. Maximum dose of acetaminophen is 4000 mg from all sources in 24 hours.
Group 2: ondansetron ODT (Zofran-ODT) disintegrating tablet 4 mgJump to med 4 mg, Oral, Every 4 hours PRN, nausea, vomiting, Starting on Thu12/22/22 at 2108
1st Line. If inadequate response within 60 minutes, proceed to next-line agent or contact provider if no further options ordered. Patient should allow tablet to dissolve on tongue. Do not remove from blister pack until just before administering.
Or ondansetron (Zofran) injection 4 mgJump to med 4 mg, IntraVENous, Every 6 hours PRN, nausea, vomiting, Starting on Thu12/22/22 at 2108
1st Line. Give IV if patient is unable to take orally. If inadequate response within 60 minutes, proceed to next-line agent or contact provider if no further options ordered.
Scheduled Medication Order 01/03/2023 01/04/2023 01/05/2023 clindamycin in D5W (Cleocin) IVPB 900 mg (COMPLETED) 900 mg, IntraVENous, at 50 mL/hr, Administer over 60 Minutes, Once, On Thu01/05/23 at 0800, For 1 dose, Preprocedure, Administer within 1 hour prior to incision. premix bag, Suspected Indication (Select all that apply): Surgical Prophylaxis 0903 (Given - Provid er: Nir Charles CRNA)1029 (Anesthesia Volume Adjustment - Provider: Nir Charles CRNA) famotidine (Pepcid) tablet 20 mg (COMPLETED) 20 mg, Oral, Once, On Thu01/05/23 at 0800, For 1 dose, Preprocedure 0804 (Given - Provid er: Jennifer May RN) gabapentin (Neurontin) capsule 100 mg (COMPLETED) 100 mg, Oral, Once, On Thu01/05/23 at 0800, For 1 dose, Preprocedure, For Age >69 or Low GFR. 0804 (Given - Provid er: Jennifer May RN) sodium chloride 0.9% (NS) flush 10 mL 10 mL, IntraVENous, Every 12 hours scheduled (2 times per day), First dose on Thu01/05/23 at 0900, Preprocedure 0900 (Canceled Entry - Provider: Automatic Discharge Provider - Comment: Automatically canceled at discontinue of medication order) sodium chloride 0.9% (NS) flush 10 mL 10 mL, IntraVENous, Every 12 hours scheduled (2 times per day), First dose on Thu01/05/23 at 1030, Recovery (only) 1030 (Canceled Entry - Provider: Automatic Discharge Provider - Comment: Automatically canceled at discontinue of medication order) sodium chloride 0.9% (NS) flush 5-40 mL 5-40 mL, IntraVENous, Every 12 hours, First dose on Thu01/05/23 at 0800, Preprocedure, For Line Patency: Peripheral IV = 5 mL; Midline or Central Line = 10 mL/lumen. If following IV push medication, administer flush at same rate as the IV push. Flush volume is determined by type of infusion therapy being given. For non-viscous solutions use: Peripheral IV = 5 mL Midline or Central Line = 10 mL/lumen For viscous solutions (i.e. blood components, parenteral nutrition, contrast media, or after obtaining blood sample) use: Peripheral IV = 10 mL Midline or Central Line = 20 mL/lumen 0800 (Canceled Entry - Provider: Automatic Discharge Provider - Comment: Automatically canceled at discontinue of medication order) Continuous Medication Order 01/03/2023 01/04/2023 01/05/2023 lactated Ringer's (LR) infusion 50 mL/hr, IntraVENous, Continuous, Starting on Thu01/05/23 at 0800, Preprocedure, Upon admission to sameday - please start iv if patient does not have iv access. Use 500ml NS for patients on dialysis. 0805 (New Bag - Prov ider: Jennifer May RN)0856 (Continued by Anesthesia - Provider: Nir Charles CRNA)1011 (Stopped - Provider: Nir Charles CRNA) lactated ringers infusion 125 mL/hr, IntraVENous, Continuous, Starting on Thu01/05/23 at 1030, Recovery (only) 1030 (Canceled Entry - Provider: Automatic Discharge Provider - Comment: Automatically canceled at discontinue of medication order) PRN Medication Order 01/03/2023 01/04/2023 01/05/2023 ALPRAZolam (Xanax) disintegrating tablet 0.25 mg (COMPLETED) 0.25 mg, Oral, PRN, anxiety, Starting on Thu01/05/23 at 0749, For 1 dose, Preprocedure, Using dry hands, place tablet on top of tongue and allow to disintegrate. Administration with water is not necessary. 0804 (Given - Provid er: Jennifer May RN) dextrose 5 % infusion 100 mL/hr, IntraVENous, PRN, Blood sugar less than 70mg/dL, Starting on Thu01/05/23 at 0749, Preprocedure, Start infusion following administration of dextrose 50% or glucagon. dextrose 50 % solution 12.5 g 12.5 g, IntraVENous, PRN, low blood sugar, Blood glucose less than 70 mg/dL and patient NOT ALERT or NPO., Starting on Thu01/05/23 at 0749, Preprocedure, If patient does not respond within 5 minutes, repeat dose x1. Start D5W at 100 mL/hour until ordering provider can be reached. Repeat blood glucose in 15 minutes. If blood glucose is less than 70 mg/dL, repeat treatment and recheck blood glucose in 15 minutes x2. If using Glucostabilizer, dose as instructed per system. diphenhydrAMINE (BENADryl) injection 12.5 mg 12.5 mg, IntraVENous, Once PRN, itching, Starting on Thu01/05/23 at 1024, For 1 dose, Recovery (only) fentaNYL (Sublimaze) injection 25 mcg 25 mcg, IntraVENous, Every 5 min PRN, moderate pain (4-6), Starting on Thu01/05/23 at 1024, For 3 doses, Recovery (only), Phase I and Phase II- Initial therapy for moderate pain (4-6). Restricted to a 90 minute time frame starting when the patient can verbally state their pain score. If after 2 doses the pain score does not decrease by more than one point, then call the provider. If oral meds are utilized, do not return to initial therapy medications. fentaNYL (Sublimaze) injection 50 mcg (COMPLETED) 50 mcg, IntraVENous, Every 5 min PRN, severe pain (7-10), Starting on Thu01/05/23 at 1024, For 3 doses, Recovery (only), Phase I and Phase II- Initial therapy for severe pain (7-10). Restricted to a 90 minute time frame starting when the patient can verbally state their pain score. If after 2 doses the pain score does not decrease by more than one point, then call the provider. If oral meds are utilized, do not return to initial therapy medications. 1030 (Given - Provid er: Christen Coombs RN)1055 (Given - Provider: Christen Coombs RN)1100 (Given - Provider: Christen Coombs RN) glucagon (human recombinant) injection 1 mg 1 mg, IntraMUSCular, PRN, low blood sugar, Blood glucose less than 70 mg/dL and patient NOT ALERT or NPO and does not have IV access., Starting on Thu01/05/23 at 0749, Preprocedure, After administration, attempt intravenous access and start D5W at 100 mL/hr. Repeat blood glucose in 15 minutes x2 and notify provider. glucose oral gel 15 g 15 g, Oral, As needed, low blood sugar, Starting on Thu01/05/23 at 0749, Preprocedure, If blood glucose less than 50 mg/dL and patient ALERT and NOT NPO, give 2 tubes glucose gel. If blood glucose less than 70 mg/dL and patient ALERT and NOT NPO, give 1 tube glucose gel. Repeat blood glucose in 15 minutes. If blood glucose is less than 70 mg/dL, repeat treatment and recheck blood glucose in 15 minutes x2 and notify provider. hydrALAZINE (Apresoline) injection 5 mg(Linked Group 1) 5 mg, IntraVENous, Every 15 min PRN, high blood pressure, for SBP greater than 160 mmHg for 2 consecutive measurements taken from different sites, Starting on Thu01/05/23 at 1024, For 2 doses, Recovery (only), PRN for SBP > 160 for 2 consecutive measurements, and if one of the following conditions is met: 1) If IV labetolol is ineffective. 2) If HR is under 60. 3) If patient has heart block, COPD or asthma. If both labetalol and hydralazine ineffective, notify anesthesia provider. Insulin Lispro (Humalog) injection 0-12 Units 0-12 Units, SubCUTAneous, PRN, high blood sugar, Surgery patient, Starting on Thu01/05/23 at 0749, For 3 doses, Preprocedure, Corrective Low Dose Algorithm Glucose: Dose: 70-180 No Insulin 181-240 4 Unit 241-300 6 Units 301-350 8 Units 351-400 10 Units Over 400 12 Units and notify physician labetalol (Normodyne,Trandate) injection 5 mg(Linked Group 1) 5 mg, IntraVENous, Every 10 min PRN, high blood pressure, for SBP greater than 160 mmHg for 2 consecutive measurements taken from different sites., Starting on Thu01/05/23 at 1024, For 2 doses, Recovery (only), PRN for SBP >160 for 2 consecutive measurements, if HR is 60 or greater. If beta barbara is contraindicated (HR less than 60, heart block, COPD or asthma) use hydralazine IV order. LORazepam (Ativan) injection 0.5 mg (COMPLETED) 0.5 mg, IntraVENous, Once PRN, for anxiety or muscle spasm., Starting on Thu01/05/23 at 1024, For 1 dose, Recovery (only), For IV doses dilute dose with 1ml NS. 1030 (Given - Provid er: Christen Coombs RN) meperidine (Demerol) injection 12.5 mg 12.5 mg, IntraVENous, Every 5 min PRN, shivering, Starting on Thu01/05/23 at 1024, For 4 doses, Recovery (only), May give every 5 minutes to max of 50mg. ondansetron (Zofran) injection 4 mg 4 mg, IntraVENous, Once PRN, nausea, Starting on Thu01/05/23 at 1024, For 1 dose, Recovery (only), Initial antiemetic therapy. Oxidized Cellulose external pad (CANCELED) As needed, Starting on Thu01/05/23 at 0959, Intraprocedure 0959 (Given - Provid er: Ruperto Fang MD) oxyCODONE (Roxicodone) immediate release tablet 10 mg(Linked Group 2) 10 mg, Oral, PRN, severe pain (7-10), Starting on Thu01/05/23 at 1024, For 1 dose, Recovery (only), PHASE II oxyCODONE (Roxicodone) immediate release tablet 5 mg(Linked Group 2) 5 mg, Oral, PRN, moderate pain (4-6), Starting on Thu01/05/23 at 1024, For 1 dose, Recovery (only), PHASE II sodium chloride 0.9 % bolus 500 mL 500 mL, IntraVENous, at 1,000 mL/hr, Administer over 0.5 Hours, PRN, Anti-nausea, Starting on Thu01/05/23 at 1024, Recovery (only), Indications: Anti-nausea sodium chloride 0.9 % infusion 5-250 mL/hr, IntraVENous, PRN, if patient receiving piggyback infusions and maintenance fluids are not ordered OR KVO fluids to protect IV site / prevent frequent line interruptions/ long duration, Starting on Thu01/05/23 at 0749, Preprocedure, For piggyback infusion, administer at same rate as piggyback for a total of 25 mL. Enter 25 mL into dose field and piggyback rate into rate field of order. If piggyback is infusing at a rate less than 100 mL/hr, enter 25 mL into dose field and 100 mL/hr into rate field of order. For KVO fluids, enter rate of 20 mL/hr or less into rate field of order. sodium chloride 0.9 % infusion 5-250 mL/hr, IntraVENous, PRN, if patient receiving piggyback infusions and maintenance fluids are not ordered OR KVO fluids to protect IV site / prevent frequent line interruptions / long duration, Starting on Thu01/05/23 at 0749, Preprocedure, For piggyback infusion, administer at same rate as piggyback for a total of 25 mL. Enter 25 mL into dose field and piggyback rate into rate field of order. If piggyback is infusing at a rate less than 100 mL/hr, enter 25 mL into dose field and 100 mL/hr into rate field of order. For KVO fluids, enter rate of 20 mL/hr or less into rate field of order. sodium chloride 0.9 % infusion 5-250 mL/hr, IntraVENous, PRN, if patient receiving piggyback infusions and maintenance fluids are not ordered OR KVO fluids to protect IV site / prevent frequent line interruptions/ long duration, Starting on Thu01/05/23 at 1024, Recovery (only), For piggyback infusion, administer at same rate as piggyback for a total of 25 mL. Enter 25 mL into dose field and piggyback rate into rate field of order. If piggyback is infusing at a rate less than 100 mL/hr, enter 25 mL into dose field and 100 mL/hr into rate field of order. For KVO fluids, enter rate of 20 mL/hr or less into rate field of order. sodium chloride 0.9 % irrigation solution (CANCELED) As needed, Starting on Thu01/05/23 at 1000, Intraprocedure 1000 (Given - Provid er: Ruperto Fang MD) sodium chloride 0.9% (NS) flush 10 mL 10 mL, IntraVENous, PRN, line care, Starting on Thu01/05/23 at 0749, Preprocedure, After every IV line use sodium chloride 0.9% (NS) flush 10 mL 10 mL, IntraVENous, PRN, line care, Starting on Thu01/05/23 at 1024, Recovery (only), After every IV line use sodium chloride 0.9% (NS) flush 5-40 mL 5-40 mL, IntraVENous, PRN, line care, After every IV line use, Starting on Thu01/05/23 at 0749, Preprocedure, For Line Patency: Peripheral IV = 5 mL; Midline or Central Line = 10 mL/lumen. If following IV push medication, administer flush at same rate as the IV push. Flush volume is determined by type of infusion therapy being given. For non-viscous solutions use: Peripheral IV = 5 mL Midline or Central Line = 10 mL/lumen For viscous solutions (i.e. blood components, parenteral nutrition, contrast media, or after obtaining blood sample) use: Peripheral IV = 10 mL Midline or Central Line = 20 mL/lumen sterile water irrigation solution (CANCELED) As needed, Starting on Thu01/05/23 at 0918, Intraprocedure 0918 (Given - Provid er: Ruperto Fang MD) Linked Groups Order Group 1: labetalol (Normodyne,Trandate) injection 5 mgJump to med 5 mg, IntraVENous, Every 10 min PRN, high blood pressure, for SBP greater than 160 mmHg for 2 consecutive measurements taken from different sites., Starting on Thu01/05/23 at 1024, For 2 doses, Recovery (only)
PRN for SBP >160 for 2 consecutive measurements, if HR is 60 or greater. If beta barbara is contraindicated (HR less than 60, heart block, COPD or asthma) use hydralazine IV order.
Or hydrALAZINE (Apresoline) injection 5 mgJump to med 5 mg, IntraVENous, Every 15 min PRN, high blood pressure, for SBP greater than 160 mmHg for 2 consecutive measurements taken from different sites, Starting on Thu01/05/23 at 1024, For 2 doses, Recovery (only)
PRN for SBP > 160 for 2 consecutive measurements, and if one of the following conditions is met: 1) If IV labetolol is ineffective. 2) If HR is under 60. 3) If patient has heart block, COPD or asthma. If both labetalol and hydralazine ineffective, notify anesthesia provider.
Group 2: oxyCODONE (Roxicodone) immediate release tablet 5 mgJump to med 5 mg, Oral, PRN, moderate pain (4-6), Starting on Thu01/05/23 at 1024, For 1 dose, Recovery (only)
PHASE II
Or oxyCODONE (Roxicodone) immediate release tablet 10 mgJump to med 10 mg, Oral, PRN, severe pain (7-10), Starting on Thu01/05/23 at 1024, For 1 dose, Recovery (only)
PHASE II
Care Teams (unrecognized sec tion and content) Steel Handler Relationship Specialty Start Date End Date Jani Quezada MD PCP - General 09/06/15 Steel Handler Relationship Specialty Start Date End Date Jani Quezada MD PCP - General 09/06/15 Steel Handler Relationship Specialty Start Date End Date Jani Quezada [address] [place] [address] PCP - General Internal Medicine 05/26/17 Steel Handler Relationship Specialty Start Date End Date Jani Quezada [address] [place] [address] PCP - General Internal Medicine 05/26/17 Steel Handler Relationship Specialty Start Date End Date Jani Quezada [address] [place] [address] PCP - General Internal Medicine 05/26/17 Steel Handler Relationship Specialty Start Date End Date Jani Quezada [address] [place] [phone] PCP - General 09/06/15 Ana Callaway MD [address] [place] [address] Gastroenterology 11/07/22 Steel Handler Relationship Specialty Start Date End Date Jani Quezada [address] [place] [phone] PCP - General 09/06/15 Ana Callaway MD [address] [place] [address] Gastroenterology 11/07/22 Steel Handler Relationship Specialty Start Date End Date Jani Quezada [address] [place] [phone] PCP - General 09/06/15 Ana Callaway MD [address] [place] [address] [place], [place] [phone] Gastroenterology 11/07/22 Steel Handler Relationship Specialty Start Date End Date Jani Quezada [address] [place] [phone] PCP - General 09/06/15 Ana Callaway MD [address] [place] [address] [facility] [address] [place], [place] [phone] Gastroenterology 11/07/22 Steel Handler Relationship Specialty Start Date End Date Jani Quezada [address] [place] [phone] PCP - General 09/06/15 Ana Callaway MD [address] [place] [address] [facility] [address] [place], [place] [phone] Gastroenterology 11/07/22 Steel Handler Relationship Specialty Start Date End Date Jani Quezada [address] [place] [phone] PCP - General 09/06/15 Ana Callaway MD [address] [place] [address] [facility] [address] [place], [place] [phone] Gastroenterology 11/07/22 Steel Handler Relationship Specialty Start Date End Date Jani Quezada [address] [place] [phone] PCP - General 09/06/15 nAa Callaway MD [address] [place] [address] [place] [address] Gastroenterology 11/07/22 Steel Handler Relationship Specialty Start Date End Date Jani Quezada [address] [place] [phone] PCP - General 09/06/15 Ana Callaway MD [address] [place] [address] [place] [address] Gastroenterology 11/07/22 Steel Handler Relationship Specialty Start Date End Date Jani Quezada [address] [place] [phone] PCP - General 09/06/15 Ana Callaway MD [address] [place] [address] [place] [address] Gastroenterology 11/07/22 Steel Handler Relationship Specialty Start Date End Date Jani Quezada [address] [place] [phone] PCP - General 09/06/15 Ana Callaway MD [address] [place] [address] [place] [address] Gastroenterology 11/07/22 Steel Handler Relationship Specialty Start Date End Date Jani Quezada [address] [place] [phone] PCP - General 09/06/15 Ana Callaway MD [address] [place], [place] [phone] Gastroenterology 11/07/22 Lea Koehler, die mounterDairy Equipment Specialist Direct Support Professional 04/16/2303/20 Steel Handler Relationship Specialty Start Date End Date Jani Quezada [address] [place] [address] PCP - General 09/06/15 Ana Callaway MD [address] [place], [place] [phone] Gastroenterology 11/07/22 Steel Handler Relationship Specialty Start Date End Date Jani Quezada [address] [place] [address] PCP - General 09/06/15 Ana Callaway MD [address] [place], [place] [phone] Gastroenterology 11/07/22 Steel Handler Relationship Specialty Start Date End Date Jani Quezada [address] [place] [address] PCP - General 09/06/15 Ana Callaway MD [address] [place], [place] [phone] Gastroenterology 11/07/22 Steel Handler Relationship Specialty Start Date End Date Jani Quezada [address] [place] [phone] PCP - General 09/06/15 Ana Callaway MD [address] [place] [address] [place] [address] Gastroenterology 11/07/22 Steel Handler Relationship Specialty Start Date End Date Jani Quezada [address] [place] [phone] PCP - General 09/06/15 Ana Callaway MD [address] [place] [address] [place], [place] [phone] Gastroenterology 11/07/22 Steel Handler Relationship Specialty Start Date End Date Jani Quezada [address] [place] [phone] PCP - General 09/06/15 Ana Callaway MD [address] [place] [address] [place] [address] Gastroenterology 11/07/22 Steel Handler Relationship Specialty Start Date End Date Jani Quezada [address] [place] [phone] PCP - General 09/06/15 Ana Callaway MD [address] [place], [place] [phone] Gastroenterology 11/07/22 Steel Handler Relationship Specialty Start Date End Date Jani Quezada [address] [place] [phone] PCP - General 09/06/15 Ana Callaway MD [address] [place] [address] Gastroenterology 11/07/22 Steel Handler Relationship Specialty Start Date End Date Jani Quezada [address] [place] [phone] PCP - General 09/06/15 Ana Callaway MD [address] [place] [address] [place] [address] Gastroenterology 11/07/22 Steel Handler Relationship Specialty Start Date End Date Jani Quezada [address] [place] [phone] PCP - General 09/06/15 Ana Callaway MD [address] [place] [address] Gastroenterology 11/07/22 Steel Handler Relationship Specialty Start Date End Date Jani Quezada [address] [place] [phone] PCP - General 09/06/15 Ana Callaway MD [address] [place] [address] Gastroenterology 11/07/22 Steel Handler Relationship Specialty Start Date End Date Jani Quezada [address] [place] [phone] PCP - General 09/06/15 Ana Callaway MD [address] [place] [address] Gastroenterology 11/07/22 Steel Handler Relationship Specialty Start Date End Date Jani Quezada [address] [place] [phone] PCP - General 09/06/15 Ana Callaway MD [address] [place] [address] Gastroenterology 11/07/22 Steel Handler Relationship Specialty Start Date End Date Jani Quezada [address] [place] [phone] PCP - General 09/06/15 Ana Callaway MD [address] [place] [address] Gastroenterology 11/07/22 Steel Handler Relationship Specialty Start Date End Date Jani Quezada [address] [place] [phone] PCP - General 09/06/15 Ana Callaway MD [address] [place] [address] Gastroenterology 11/07/22 Steel Handler Relationship Specialty Start Date End Date Jani Quezada [address] [place] [phone] PCP - General 09/06/15 Ana Callaway MD [address] [facility] [address] [place] [address] Gastroenterology 11/07/22 Steel Handler Relationship Specialty Start Date End Date Bryant Jani [address] [place] [phone] PCP - General 09/06/15 Ana Callaway MD [address] [facility] [address] [facility] [address] [place], [place] [phone] Gastroenterology 11/07/22 Steel Handler Relationship Specialty Start Date End Date ChrisJani kidd [address] [place] [phone] PCP - General 09/06/15 Ana Callaway MD 1 [facility] [address] [place] [address] Gastroenterology 11/07/22 Steel Handler Relationship Specialty Start Date End Date ChrisJani kidd [address] [place] [phone] PCP - General 09/06/15 Ana Callaway MD 1 [facility] [address] [place] [address] Gastroenterology 11/07/22 Steel Handler Relationship Specialty Start Date End Date ChrisJani kidd [address] [place] [phone] PCP - General 09/06/15 Ana Callaway MD [address] [facility] [address] [facility] [address] [place] [address] Gastroenterology 11/07/22 Steel Handler Relationship Specialty Start Date End Date Jani Quezada [address] [place] [phone] PCP - General 09/06/15 Ana Callaway MD [address] [place] [address] [place] [address] Gastroenterology 11/07/22 Steel Handler Relationship Specialty Start Date End Date Jani Quezada [address] [place] [phone] PCP - General 09/06/15 Ana Callaway MD [address] [place] [address] [place], [place] [phone] Gastroenterology 11/07/22 Steel Handler Relationship Specialty Start Date End Date Jani Quezada [address] [place] [phone] PCP - General 09/06/15 Ana Callaway MD [address] [place] [address] [place] [address] Gastroenterology 11/07/22 Steel Handler Relationship Specialty Start Date End Date Jani Quezada [address] [place] [phone] PCP - General 09/06/15 Ana Callaway MD [address] [place] [address] [place] [address] Gastroenterology 11/07/22 Steel Handler Relationship Specialty Start Date End Date Jani Quezada [address] [place] [phone] PCP - General 09/06/15 Ana Callaway MD [address] [place] [address] [place] [address] Gastroenterology 11/07/22 Steel Handler Relationship Specialty Start Date End Date Jani Quezada [address] [place] [phone] PCP - General 09/06/15 Ana Callaway MD 1 [facility] [address] [place], [place] [phone] Gastroenterology 11/07/22 Steel Handler Relationship Specialty Start Date End Date Jani Quezada [address] [place] [phone] PCP - General 09/06/15 Ana Callaway MD 1 [facility] [address] [place], [place] [phone] Gastroenterology 11/07/22 Source Comments (unrecognize d section and content) In the event this informatio n is protected by the Federal Confidentiality of Alcohol and Drug Abuse Patient Records regulations: The Federal rules restrict any use of the information to criminally investigate or prosecute any alcohol or drug abuse patient.[facility] the event this information is protected by the Federal Confidentiality of Alcohol and Drug Abuse Patient Records regulations: The Federal rules restrict any use of the information to criminally investigate or prosecute any alcohol or drug abuse patient.[facility] the event this information is protected by the Federal Confidentiality of Alcohol and Drug Abuse Patient Records regulations: The Federal rules restrict any use of the information to criminally investigate or prosecute any alcohol or drug abuse patient.[facility] the event this information is protected by the Federal Confidentiality of Alcohol and Drug Abuse Patient Records regulations: The Federal rules restrict any use of the information to criminally investigate or prosecute any alcohol or drug abuse patient.[facility] FOR RECORDS PERTAINING TO PATIENTS WHO ARE OR HAVE BEEN ENROLLED IN A CHEMICAL DEPENDENCY/SUBSTANCEABUSE PROGRAM, SOME INFORMATION MAY BE OMITTED. This clinical summary was aggregated from multiple sources. Caution should be exercised in using it in the provision of clinical care. This summary normalizes information from multiple sources, and as a consequence, information in this document may materially change the coding, format and clinical context of patient data. In addition, data may be omitted in some cases. CLINICAL DECISIONS SHOULD BE BASED ON THE PRIMARY CLINICAL RECORDS. [facility] [employer] [facility]. provides no warranty or guarantee of the accuracy or completeness of information in this document.
[2025-05-08] VITALS (13 sets, daily range): BP systolic 94–146; BP diastolic 59–90; PULSE 67–99; RESP 15–18; TEMP 36.3–36.6; O2SAT 93–98; BMI 29.5
[2025-05-08 00:08] LABS: Prothrombin Time (Protime)PT. 13.7 SECONDS (11.7-14.9)
[2025-05-08 00:15] LABS: Hematocrit 36.2 % (40-54); Hemoglobin 13.1 g/dL (13.0-16.5); Immature Granulocytes Count 0.100 X10^3/uL (0.0-0.0); Mean Corp Hgb Conc 36.2 g/dL (32-36); Mean Corpuscular Volume 88.7 fL (80-94); Mean Platelet Vol. 9.2 fl (6.2-12.0); NRBC Flagged by Analyzer 0 % (0-5); Platelet Count 129 K/mm3 (150-450); RBC Distribution Width CV 14.5 % (11.6-14.6); RBC Distribution Width SD 46.7 fl (35.1-43.9); Red Blood Count 4.08 M/mm3 (4.6-6.2); White Blood Count 9.6 K/mm3 (4.4-11.0)
[2025-05-08 00:24] LABS: AST(SGOT) 22 U/L (<=37); Alanine Aminotransfer ALT/SGPT 12 U/L (<=46); Albumin, Serum 4.4 g/dL (3.4-4.8); Alcohol, Blood (Medical)-Serum 272.0 mg/dL (<=10.0); Alkaline Phosphatase 89 U/L (40-129); Anion Gap 20 (5-15); BUN 9 mg/dL (4-19); BUN/Creat Ratio 8.6 RATIO (10-20); Calcium,Total 9.0 mg/dL (7.6-11.0); Carbon Dioxide 19.1 mmol/L (21.0-32.0); Chloride 85 mmol/L (98-108); Globulin 2.8 g/dL (2.2-4.2); Glucose 98 mg/dL (70-99); Potassium 3.6 mmol/L (3.3-5.1)
[2025-05-08 00:49] LABS: Barbiturate Urine NEGATIVE (< 200 ng/mL); Benzodiazepine Urine NEGATIVE (< 200 ng/mL); PCP Urine NEGATIVE (< 25 ng/mL); THC Urine PRESUMPTIVE POSITIVE (< 50 ng/mL)
[2025-05-08] MEDS: 0.9% Normal Saline (1000mL) 1,000 ML 150 ML IV (00:56)
--- NOTE | 2025-05-08 01:07 | PCM.HP.STD ---
[facility] - General General Date of Admission: 05/08/25 Date of Service: 05/08/25 Chief Complaint: Desire for EtOH Detox and Fall. HPI Narrative WOODY RECINOS, is a 65 M with a past medical history of essential hypertension; on losartan, hypothyroidism; not on treatment, chronic hepatitis C, history of tobacco abuse; subsequent COPD, SHAYLA; noncompliant with CPAP, depression with anxiety; on mirtazapine and sertraline, history of migraine headaches, history of cholecystectomy, GERD; on famotidine, history of RA, OA; with lumbago and sciatica, history of admission here from May 21, 2024 to May 26, 2024 for for treatment of acute EtOH intoxication in setting of chronic alcohol abuse; with cirrhosis with fall complicated by alcoholic liver disease with mild transaminitis and pancytopenia; due to marrow suppression from EtOH in addition to generalized weakness and continued chronic EtOH abuse; with patient drinking a case of beer daily in addition to ~6 shots of cinnamon whiskey per day who presents to [facility] ER requesting EtOH detox. Mr. Beck reports he drank a beer shortly prior to arrival and only came to the ER because his significant other threatened to throw them out. He admits to recent fall with subsequent contusions under both eyes with headache and nonbloody diarrhea with upper abdominal soreness but he denies associated focal neurologic deficits or recent seizure activity. He also admits to occasional cannabis abuse but denies other illicit drug use. He states he always has shakes in the morning when he wakes up until he starts drinking. He states his symptoms are very similar to his previous admission last year. He denies associated fever, chills, runny nose, sore throat, visual changes, hallucinations, discharge from eyes, chest pain, palpitations, heart racing, shortness of breath, cough, dysuria, hematuria, back pain or rash. In the ER he was noted to have a SHE of 272 mg/dL present on admission consistent with acute EtOH intoxication in the setting of chronic EtOH abuse with UDS positive for cannabinoids complicated by laboratory evidence of Hyponatremia of 124 mmol/L present on admission likely due to beer Potomania in addition to incidentally noted moderate Thrombocytopenia of 129K present on admission likely due to marrow suppression from EtOH. He was then admitted to the general medical floor for treatment under the EtOH detoxification protocol for [facility] that is expected to extend beyond 2 midnights. [facility] Medical History Marijuana smoker Alcohol abuse Diabetes Rheumatoid arthritis Osteoporosis Kidney disease Pancreatitis Hepatitis BiPAP (biphasic positive airway pressure) dependence CPAP (continuous positive airway pressure) dependence Smoker COPD (chronic obstructive pulmonary disease) Migraines Seizures Alcohol dependence Diabetic neuropathy Muscle weakness Personal history of colonic polyps Deficiency of other specified B group vitamins Hyperkalemia Unilateral inguinal hernia PTSD (post-traumatic stress disorder) Abdominal pain Renal stone Slow transit constipation Dysphagia Thrombocytopenia Disorder of teeth and supporting structures Diverticulosis SHAYLA (obstructive sleep apnea) Enlarged prostate without urinary obstruction Insomnia Bilateral foot pain GERD (gastroesophageal reflux disease) Elevated LFTs Gait abnormality Knee pain Chronic pain Anxiety Asthma Glaucoma Localized edema Gout Biotin-dependent carboxylase deficiency, unspecified Hypothyroidism Lumbago with sciatica HLD (hyperlipidemia) HTN (hypertension) Chronic hepatitis C Alcohol use disorder Diarrhea Nausea and vomiting Anemia Type 2 diabetes mellitus Depression Adrenogenital disorder, unspecified Chronic kidney disease, stage 3 Liver cirrhosis Emphysema lung History of syncope Gallbladder sludge Home Medications Medication Instructions Recorded Last Taken Type losartan 100 mg tablet 100 mg PO DAILY #3 tabs 04/08/24 Unknown Rx mirtazapine 15 mg tablet 15 mg PO QHS #3 tabs 04/08/24 Unknown Rx nitroglycerin 0.4 mg sublingual 0.4 mg sublingual Q5M PRN chest 04/08/24 Unknown Rx tablet (Nitrostat) pain #3 tabs albuterol sulfate 90 mcg/actuation 2 puff inhalation Q6H PRN PRN 05/02/24 Unknown History aerosol inhaler shortness of breath or wheezing potassium chloride 10 mEq 10 meq PO DAILY REPLACEMENT 05/03/24 Unknown History tablet,extended release dicyclomine 20 mg tablet 20 mg PO TID CRAMPS 05/08/25 Unknown History hydroxyzine pamoate 50 mg capsule 50 mg PO Q6H PRN PRN 05/08/25 Unknown History ITCHING/ANXIETY levothyroxine 75 mcg tablet 75 mcg PO DAILY THYROID 05/08/25 Unknown History omeprazole 40 mg capsule,delayed 40 mg PO DAILY STOMACH 05/08/25 Unknown History release ondansetron HCl 8 mg tablet 8 mg PO Q8H PRN PRN nausea and 05/08/25 Unknown History vomiting pravastatin 80 mg tablet 80 mg PO QHS CHOLESTEROL 05/08/25 Unknown History tamsulosin 0.4 mg capsule 0.4 mg PO DAILY URINE 05/08/25 Unknown History tizanidine 4 mg tablet 4 mg PO Q6H PRN muscle spasticity 05/08/25 Unknown History Allergy/AdvReac Type Severity Reaction Status Date / Time allopurinol Allergy Intermediate Other Verified 05/07/25 23:03 codeine Allergy Intermediate Other Verified 05/07/25 23:03 Penicillins Allergy Intermediate Other Verified 05/07/25 23:03 Family History Father Prostate cancer History of quadruple bypass Myocardial infarction Surgical History History of cholecystectomy H/O oral surgery Previous back surgery Social History Smoking Status: Current every day smoker tobacco type: smokeless tobacco alcohol intake: current alcohol intake frequency: 3 or more drinks per day Alcohol type: beer details: Averages 18 beers per day ROS ROS Narrative Review of Systems: Constitutional: Patient denies fever or chills. Eyes: Patient denies changes in vision, hallucinations or discharge from eyes. ENT: Patient denies runny nose, sore throat or ear pain. Resp: Patient denies shortness of breath or cough. CV: Patient denies chest pain, palpitations, heart racing or lower extremity edema. GI: Patient admits to nonbloody diarrhea and chronic upper abdominal soreness. He denies nausea, vomiting early satiety or blood in stools or vomit. : Patient denies dysuria or hematuria. MSK: Patient denies arthralgias or myalgias. Skin: Patient denies rash, abscess, wounds or jaundice. Psych: Patient denies symptoms uncontrolled depression or anxiety. Neuro: Patient admits to headache after recent fall as per HPI. He denies paresthesias or focal neurologic weakness. Allergy: Patient denies lip swelling, tongue swelling or urticaria. Hematology: Patient denies easy bleeding or easy bruisability. Endocrinology: Patient denies polyuria, polydipsia, polyphagia or heat/cold intolerance. 14 point ROS otherwise negative except for positives noted above in HPI. Vital Signs Vital Signs Vital Signs: 05/07/25 23:03 05/07/25 23:12 05/08/25 00:00 Temperature 97.8 F 97.8 F Temperature Source Oral Oral Pulse Rate 106 H 106 H 79 Respiratory Rate 18 18 18 Blood Pressure 158/91 H 158/91 H 112/63 Blood Pressure Mean 113 113 79 Blood Pressure Source Monitor Blood Pressure Position Semi-Fowlers Blood Pressure Location Left Arm Pulse Ox 97 97 96 Oxygen Delivery Method Room Air Room Air Room Air 05/08/25 00:00 Temperature 97.9 F Temperature Source Pulse Rate 79 Respiratory Rate 18 Blood Pressure 112/63 Blood Pressure Mean 79 Blood Pressure Source Blood Pressure Position Blood Pressure Location Pulse Ox 96 Oxygen Delivery Method Physical Exam Const alert, oriented x3, no apparent distress, average body habitus and healthy appearing Constitutional Narrative: Patient is intoxicated but pleasant and cooperative. General Appearance: cooperative HEENT normocephalic, head/scalp atraumatic, hearing grossly normal bilaterally and moist oral mucous membranes Eyes PERRL, EOMs intact bilaterally and conjunctivae normal Eyes Narrative: Patient has bilateral periorbital ecchymoses that are yellowed and subacute with similar nontender contusion to the forehead and nasal bridge without crepitus or deformity. No Rosario sign. Neck no lymphadenopathy, supple and no JVD Resp normal respiratory effort, no retractions, no use of accessory muscles and clear to auscultation bilaterally Cardio regular rate and regular rhythm GI normal to inspection, nondistended, normoactive bowel sounds, soft to palpation, non-tender and non-distended Extremity normal to inspection, full ROM and no clubbing, cyanosis or edema Skin Skin Narrative: Patient has evidence of rash. Neuro oriented x3, CN's II-XII intact bilaterally, moves all extremities and no focal motor deficits Neuro Narrative: Patient is intoxicated Sensorium / Orientation: awake, alert, oriented to person, oriented to place and oriented to time Speech: speech normal Psych affect normal Results Medical Records Data Attestation: I reviewed the patient's medical records Lab / Micro Data Attestation: I reviewed the patient's lab results. 05/07/25 23:30 05/07/25 23:30 Labs: Laboratory Results - last 24 hr 05/07/25 23:30: WBC 9.6, RBC 4.08 L, Hgb 13.1, Hct 36.2 L, MCV 88.7, MCH 32.1 H, MCHC 36.2 H, RDW Std Deviation 46.7 H, RDW Coeff of Heidi 14.5, Plt Count 129 L, MPV 9.2, Immature Gran % (Auto) 1.000 H, Neut % (Auto) 45.2 L, Lymph % (Auto) 46.2 H, [place] % (Auto) 6.7, Eos % (Auto) 0.6, Baso % (Auto) 0.3, Absolute Neuts (auto) 4.3, Absolute Lymphs (auto) 4.43, Nucleated RBC % 0, PT 13.7, INR 1.0, Sodium 124 L, Potassium 3.6, Chloride 85 L, Carbon Dioxide 19.1 L, Anion Gap 20 H, BUN 9, Creatinine 1.02, Est GFR (MDRD) Non-Af 82, BUN/Creatinine Ratio 8.6 L, Glucose 98, Calcium 9.0, Total Bilirubin 0.69, AST 22, ALT 12, Alkaline Phosphatase 89, Total Protein 7.1, Albumin 4.4, Globulin 2.8, Albumin/Globulin Ratio 1.6, Ethyl Alcohol 272.0 H 05/07/25 23:40: Urine Opiates Screen NEGATIVE, U Buprenorphine Qual NEGATIVE, Ur Oxycodone Screen NEGATIVE, Urine Methadone Screen NEGATIVE, Urine Fentanyl Screen NEGATIVE, Ur Barbiturates Screen NEGATIVE, Ur Phencyclidine Scrn NEGATIVE, Ur Amphetamines Screen NEGATIVE, U Benzodiazepines Scrn NEGATIVE, Urine Cocaine Screen NEGATIVE, U Cannabinoids Screen PRESUMPTIVE POSITIVE Imaging Radiology Impression Brain CT 05/07/25 23:08 IMPRESSION: No acute findings Reading Location: [place] [id number] Assessment & Plan Assessment/Plan (1) Alcohol intoxication: QUALIFIERS: Complication of substance-induced condition: uncomplicated Qualified Code(s): F10.920 - Alcohol use, unspecified with intoxication, uncomplicated (2) Alcohol dependence: QUALIFIERS: Complication of substance-induced condition: uncomplicated Substance use status: with intoxication Qualified Code(s): F10.220 - Alcohol dependence with intoxication, uncomplicated (3) Cannabis abuse: (4) Hyponatremia: (5) Acute cystitis without hematuria: (6) Thrombocytopenia: (7) Diarrhea: QUALIFIERS: Diarrhea type: unspecified type Qualified Code(s): R19.7 - Diarrhea, unspecified (8) Tobacco abuse: PLAN: Plan 1. SHE of 272 mg/dL present on admission consistent with acute EtOH intoxication in the setting of chronic EtOH - Admit to general medical floor for treatment under the EtOH detoxification protocol primarily consisting of phenobarbital taper. EtOH cessation was strongly encouraged. Give ondansetron as needed nausea and vomiting. Give ibuprofen as needed for pain or fever. Finally, we will consult Case Management see this patient on rounds in the a.m. for further recommendations with help appreciated advance. 2. Cannabis Abuse with positive UDS this admission complicating #1 - Cannabis Cessation was strongly encouraged. 3. Hyponatremia of 124 mmol/L present on admission likely due to beer Potomania complicating #1 & #2 - Continue NS IVF begun in the ER. Recheck BMP q. 6 hours to aim for correction of 8-10 mmol/L per 24 hours. Check urine and serum osmolality. Check urinalysis to evaluate specific gravity. 4. UA positive for Acute Cystitis; without hematuria adding to the medical complexity of #1 - #3 - Start IV Azactam with listed allergy to PCU and potential drug interactions with quinolones and await culture and sensitivity data. 5. Thrombocytopenia of 129K present on admission likely due to marrow suppression from chronic EtOH abuse outlined in #1 - Check CBC daily to follow trend. 6. Diarrhea with chronic upper abdominal soreness adding to the burden of disease outlined from #1 - #4 - Check stool studies and placed on enteric precautions until infectious etiology ruled out. 7. History of tobacco abuse; subsequent COPD - Tobacco Cessation was strongly encouraged with Nicotine patch offered to control cravings. 8. History of admission here from May 21, 2020 for May 26, 2020 for for treatment of acute EtOH intoxication in setting of chronic alcohol abuse; with cirrhosis with fall complicated by alcoholic liver disease with mild transaminitis and pancytopenia; due to marrow suppression from EtOH - Noted. 9. Essential hypertension; on losartan - Continue losartan as before. 10. Hypothyroidism; not on treatment - Check TSH. 11. Chronic hepatitis C - Noted. 12. SHAYLA; noncompliant with CPAP - Note. 13. Depression with anxiety; on mirtazapine and sertraline - Maintain home regimen plus give as needed hydroxyzine for breakthrough symptoms. 14. History of migraine headaches - Give sumatriptan as needed for headache with 1 dose to be given now. 15. History of cholecystectomy - Noted. 16. GERD; on famotidine - Continue famotidine as previous. 17. History of RA - Stable with no evidence of acute flare at this time. 18. OA; with lumbago and sciatica - Give ibuprofen as needed as outlined in #1. 19. DVT prophylaxis - Lovenox 40 mg sq daily plus SCD's. Total time: Approximately (but not less than) 75 minutes. Charges/Coding Visit Charges Inpatient E&M: 60633 Init Hosp L3
--- OUTSIDE RECORDS SUMMARY | 2025-05-08 01:37 | XMS RPT_ITS | CCD ---
Author Organization [facility] Care Team Providers Care Carroting Machine Offbearer Name Role Phone ABEL HOLDER Unavailable Unavailable AN NEISHAABDI DAS Unavailable Unavailable ABEL HOLDER Unavailable Unavailable ABEL HOLDER Unavailable Unavailable JADA OCONNOR () Unavailable Unavailable Jani Quezada Primary Care Provider Jani Quezada Primary Care Provider Jani Quezada MD Primary Care Provider Jani Quezada Primary Care Provider Jani Quezada Referring Unavailable Hany Ybarra Attending Unavailable Jani Quezada Primary Care Unavailable Ashlyn Atkinson Attending Unavailable Jani Quezada Referring Unavailable Jani Quezada Primary Care Unavailable Jani Quezada Primary Care Provider Ana Callaway MD Unavailable Jani Quezada Primary Care Provider [phone] Ana Callaway MD Unavailable Lea Koehler RN [...] source) Allopurinol Drug Allergy [address] [facility] Opioid Agonists (1 source) Codeine Drug Allergy 3 Nausea [address] [facility] Penicillins (antibiotic) (1 source) Penicillin G Drug Allergy [address] [facility] (20 sources) allopurinol; Translations: [ALLOPURINOL] Drug Allergy 7 Other: See Comments, Other [facility] Repository (6 sources) penicillin; Translations: [PENICILLIN] Drug Allergy 7 Swelling [facility] Repository (6 sources) Penicillins; Translations: [PENICILLINS] Propensity to adverse reactions to drug 7 [place] (20 sources) Penicillin G Drug Allergy [address] [facility] (20 sources) Codeine; Translations: [CODEINE] Drug Allergy 3 Nausea Only [facility] (1 source) Codeine Drug Allergy 4 [facility] Repository (1 source) Penicillins Drug allergy (disorder) 4 [facility] Repository (4 sources) Lactose (non-medical use) Propensity to adverse reactions [address] [facility] Medications Current Medications Medication Drug Class(es) [...] 1) 21 MG/24HR patch 1 patch nystatin [id number] unt/ml topical cream (4 sources) Polyene Antifungal [...] 0 04/15/2023 Discontinued (Stop taking at discharge) [id number] 200 actuat albuter ol 0.09 mg/actuat metered [...] LONASE) 50 mcg/actuation nasal spray Use 1 [place] in the nose once daily as needed. 0 04/27/2017 Active End: 01-28-2023 fluticasone (Flonase) 50 MCG /ACT nasal spray Every 24 hours. 0 01/28/2023 Discontinued (Duplicate order) Comment on above: Use 1 [place] in the n ose once daily as [...] % infusion 0.5 ml heparin sodium, porcine 57814 unt/ml prefilled syringe (2 sources) Unfractionated Heparin, [...] 60 mg/min in adults. 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 Behavioral Health Treatment Planon 08-01-2024 Behavioral Health Treatment Plan Normal [facility] CARECOORDon 08-01-2024 [facility] Normal [facility] CARECOORD TCT brother in law, l/m re dc today Normal [facility] IDNon 08-01-2024 IDN Normal [facility] IDN Normal [facility] Nursing Noteon 08-01-2024 Nursing Note Discharge instructtom salcido reviewed, all questions answered, all concerns addressed. Patient declined flu vaccine stating he will follow up with his PCP. Normal [facility] Nursing Note Normal [facility] Nursing Note Normal [facility] Progress Noteon 08-01-2024 Progress Note TCT Piotr, updated re dc today. Grateful for care and tx Normal [facility] Nursing Noteon 07-31-2024 Nursing Note Patient approached R N requesting throat spray and vistaril. Patient stated he was having some pain in his throat and having some generalized anxiety. PRN vistaril and throat spray given. Normal [facility] Nursing Note Assumed care of harika ent. Patient denies needs at this time. Normal [facility] Nursing Note Pt pleasant, coopera tive, AOx 3, Denies pain, Denies thoughts of harm to self and others, no delusional thinking voiced. Compliant with meds. Gait steady with walker, speech clear. No s/s of physical distress noted. Normal [facility] Nursing Note Normal [facility] Progress Noteon 07-31-2024 Progress Note Normal [facility] IDNon 07-30-2024 IDN Normal [facility] IDN Normal [facility] IDN Normal [facility] IDN Normal [facility] IDN Normal [facility] Nursing Noteon 07-30-2024 Nursing Note Normal [facility] Nursing Note Tums 500 mg given fo r indigestion at 1623. Normal [facility] Nursing Note Vistaril 50 mg PO gi oziel for anxiety after redirection was ineffective. Normal [facility] Nursing Note Normal [facility] Nursing Note Pt complaining of restlessness and increased anxiety. Agreeable to PRN Vistaril, given at this time. Normal [facility] Progress Noteon 07-30-2024 Progress Note Normal [facility] Progress Note Normal [facility] BASIC METABOLIC PANELon 07-19 Anion gap [Moles/Vol] 7 mmol/L Normal 3-13 [facility] Comment on above: Performed By: #### L AB15 ####Fur Comber: ARA WRIGHT ([id number])[facility])[address] [place] [address] Calcium [Mass/Vol] 9.4 mg/dL Normal 8.4-10.4 [facility] Comment on above: Performed By: #### L AB15 ####Fur Comber: ARA WRIGHT ([id number])[facility])[address] [place] [address] Chloride [Moles/Vol] 109 mmol/L High 98-107 [facility] Comment on above: Performed By: #### L AB15 ####Fur Comber: ARA WRIGHT ([id number])[facility] ([facility])[address] [place] [address] CO2 [Moles/Vol] 17 mmol/L Low 22-30 [facility] Comment on above: Performed By: #### L AB15 ####Fur Comber: ARA WRIGHT ([id number])[facility])[address] [place] [address] Creatinine [Mass/Vol] 0.92 mg/dL Normal 0.66-1.25 [facility] Comment on above: Performed By: #### L AB15 ####Fur Comber: ARA WRIGHT ([id number])[facility])[address] [place] [address] GLOMERULAR FILTRATION RATE ML/MIN/1.73 SQ M.PREDICTED >90.0 Normal >60.0 [facility] Comment on above: Result Comment: Calc ulation based on the Chronic Kidney Disease Epidemiology Collaboration (CKD-EPI) equation refit without adjustment for race Performed By: #### L AB15 ####Fur Comber: ARA [id number])[facility] [place] [address] Glucose [Mass/Vol] 111 mg/dL High 70-100 [facility] Comment on above: Performed By: #### L AB15 ####Fur Comber: ARA WRIGHT ([id number])[facility] ([facility])[address] [place] [address] Potassium [Moles/Vol] 4.4 mmol/L Normal 3.5-5.1 [facility] Comment on above: Performed By: #### L AB15 ####Fur Comber: ARA WRIGHT ([id number])[facility] ([facility])[address] [place] [address] Sodium [Moles/Vol] 134 mmol/L Low 135-145 [facility] Comment on above: Performed By: #### L AB15 ####Fur Comber: ARA WRIGHT ([id number])[facility] ([facility])[address] [place] [address] Urea nitrogen [Mass/Vol] 17 mg/dL Normal 9-20 [facility] Comment on above: Performed By: #### L AB15 ####Fur Comber: ARA WRIGHT ([id number])[facility] ([facility])[address] [place] [address] CARECOORDon 07-29-2024 CAR[place]OORD Spoke to admissions [facility] pt will not qualify for CD treatment at facilities. Normal [facility] CARECOORD Normal [facility] Nursing Noteon 07-29-2024 Nursing Note Normal [facility] Nursing Note PRN Vistaril effecti ve. Patient requesting PRN Tylenol and PRN Tums. Rates sinus pain / and has complaints of acid reflux. Normal [facility] Nursing Note Patient requesting P RN Vistaril for anxiety rated 8/ Normal [facility] Nursing Note Normal [facility] Nursing Note Patient is calm and cooperative with care and medication. Alert and oriented x 3 watching TV with peers. Denies pain SI, HI, visual and Auditory hallucination. No voiced concerns or stressors at this time. Safety precaution maintained. Normal [facility] Progress Noteon 07-29-2024 Progress Note Normal [facility] CARECOORDon 07-28-2024 CARECOORD Normal [facility] GROUPNOTEon 07-28-2024 GROUPNOTE Normal [facility] IDNon 07-28-2024 IDN Normal [facility] IDN Consuming supplement s. Will increase Magic cup to tid Normal [facility] IDN Normal [facility] Nursing Noteon 07-28-2024 Nursing Note Tylenol 650 mg given for generalized pain, Vistaril 50 mg given for anxiety and Tums given for indigestion. Normal [facility] Nursing Note Normal [facility] Nursing Note Vistaril 50 mg PO gi oziel for anxiety after redirection was ineffective. Normal [facility] Nursing Note Patient given Tums 5 00 mg for indigestion. Normal [facility] Progress Noteon 07-28-2024 Progress Note Normal [facility] Progress Note Normal [facility] Progress Note Normal [facility] Progress Note Normal [facility] CARECOORDon 07-27-2024 CARECOORD TCT FARIBA, l/m Normal [facility] IDNon 07-27-2024 IDN Normal [facility] Nursing Noteon 07-27-2024 Nursing Note Normal [facility] Nursing Note Patient up with walk er and a steady gait. Resting in bed, social with staff and peers. Normal [facility] Nursing Note Normal [facility] Nursing Note PRN tylenol and vist aril effective Normal [facility] Nursing Note PRN tylenol for pain and vistaril for anxiety given Normal [facility] Progress Noteon 07-27-2024 Progress Note Normal [facility] 36on 07-26-2024 36 Called and spoke yuri Gillespie and scheduled hosp f/up with ALYSSA Armas on 09/13/2024 at 3:00 pm. Thank you [facility] BASIC METABOLIC PANELon 10-0 8-2024 Anion gap [Moles/Vol] 8 mmol/L Normal 3-13 [facility] Comment on above: Performed By: #### L AB15 ####Fur Comber: ARA WRIGHT ([id number])[facility] ([facility])[address] [place] [address] Calcium [Mass/Vol] 9.4 mg/dL Normal 8.4-10.4 [facility] Comment on above: Performed By: #### L AB15 ####Fur Comber: ARA WRIGHT ([id number])[facility] [place] [address] Chloride [Moles/Vol] 104 mmol/L Normal 98-107 [facility] Comment on above: Performed By: #### L AB15 ####Fur Comber: ARA WRIGHT ([id number])[facility] [place] [address] CO2 [Moles/Vol] 17 mmol/L Low 22-30 [facility] Comment on above: Performed By: #### L AB15 ####Fur Comber: ARA WRIGHT ([id number])[facility] ([facility])[address] [place] [address] Creatinine [Mass/Vol] 0.84 mg/dL Normal 0.66-1.25 [facility] Comment on above: Performed By: #### L AB15 ####Fur Comber: ARA WRIGHT ([id number])[facility] ([facility])[address] [place] [address] GLOMERULAR FILTRATION RATE ML/MIN/1.73 SQ M.PREDICTED >90.0 Normal >60.0 [facility] Comment on above: Result Comment: Calc ulation based on the Chronic Kidney Disease Epidemiology Collaboration (CKD-EPI) equation refit without adjustment for race Performed By: #### L AB15 ####Fur Comber: ARA WRIGHT ([id number])[facility] [place] [address] Glucose [Mass/Vol] 100 mg/dL Normal 70-100 [facility] Comment on above: Performed By: #### L AB15 ####Fur Comber: ARA WRIGHT ([id number])[facility])[address] [place] [address] Potassium [Moles/Vol] 4.4 mmol/L Normal 3.5-5.1 [facility] Comment on above: Performed By: #### L AB15 ####Fur Comber: ARA WRIGHT ([id number])[facility])[address] [place] [address] Sodium [Moles/Vol] 129 mmol/L Low 135-145 [facility] Comment on above: Performed By: #### L AB15 ####Fur Comber: ARA WRIGHT ([id number])[facility])[address] [place] [address] Urea nitrogen [Mass/Vol] 14 mg/dL Normal 9-20 [facility] Comment on above: Performed By: #### L AB15 ####Fur Comber: ARA WRIGHT ([id number])[facility])[address] [place] [address] CARECOORDon 07-26-2024 [place] TCT PRADEEP Saldaña l/m [facility] Consulton 07-26-2024 Consult Normal [facility] GROUPNOTEon 07-26-2024 GROUPNOTE Normal [facility] IDNon 07-26-2024 IDN Normal [facility] IDN Normal [facility] Nursing Noteon 07-26-2024 Nursing Note PRN tylenol and vist aril effective Normal [facility] Nursing Note Normal [facility] Nursing Note Patient became sad o olinda another patient who was confused on the unit and felt she reminded him of his mother. Patient wanted to then be in his room for a little bit and was feeling anxious. Prn PO vistaril given for anxiety. Normal [facility] Nursing Note Normal [facility] Nursing Note PRN vistaril, tyleno l and TUMS effective Normal [facility] Nursing Note PRN Vistaril for anx iety, TUMS for heartburn, and tylenol for headache pain given. Normal [facility] Progress Noteon 07-26-2024 Progress Note Normal [facility] Progress Note Normal [facility] Progress Note Normal [facility] Progress Note Normal [facility] BASIC METABOLIC PANELon 10-0 Anion gap [Moles/Vol] 10 mmol/L Normal 3-13 [facility] Comment on above: Performed By: #### L AB15 ####Fur Comber: ARA WRIGHT ([id number])[facility])[address] [place] [address] Calcium [Mass/Vol] 9.6 mg/dL Normal 8.4-10.4 [facility] Comment on above: Performed By: #### L AB15 ####Fur Comber: ARA WRIGHT ([id number])[facility])[address] [place] [address] Chloride [Moles/Vol] 104 mmol/L Normal 98-107 [facility] Comment on above: Performed By: #### L AB15 ####Fur Comber: ARA WRIGHT ([id number])[facility] ([facility])[address] [place] [address] CO2 [Moles/Vol] 16 mmol/L Low 22-30 [facility] Comment on above: Performed By: #### L AB15 ####Fur Comber: ARA WRIGHT ([id number])[facility])[address] [place] [address] Creatinine [Mass/Vol] 0.84 mg/dL Normal 0.66-1.25 [facility] Comment on above: Performed By: #### L AB15 ####Fur Comber: ARA WRIGHT ([id number])[facility])[address] [place] [address] GLOMERULAR FILTRATION RATE ML/MIN/1.73 SQ M.PREDICTED >90.0 Normal >60.0 [facility] Comment on above: Result Comment: Calc ulation based on the Chronic Kidney Disease Epidemiology Collaboration (CKD-EPI) equation refit without adjustment for race Performed By: #### L AB15 ####Fur Comber: ARA WRIGHT ([id number])[facility] [place] [address] Glucose [Mass/Vol] 113 mg/dL High 70-100 [facility] Comment on above: Performed By: #### L AB15 ####Fur Comber: ARA WRIGHT ([id number])[facility] ([facility])[address] [place] [address] Potassium [Moles/Vol] 4.2 mmol/L Normal 3.5-5.1 [facility] Comment on above: Performed By: #### L AB15 ####Fur Comber: ARA WRIGHT ([id number])[facility] ([facility])[address] [place] [address] Sodium [Moles/Vol] 130 mmol/L Low 135-145 [facility] Comment on above: Performed By: #### L AB15 ####Fur Comber: ARA WRIGHT ([id number])[facility] ([facility])[address] [place] [address] Urea nitrogen [Mass/Vol] 14 mg/dL Normal 9-20 [facility] Comment on above: Performed By: #### L AB15 ####Fur Comber: ARA WRIGHT ([id number])[facility] ([facility])[address] [place] [address] Behavioral Health Treatment Planon 07-25-2024 Behavioral Health Treatment Plan Normal [facility] CARECOORDon 07-25-2024 CARECOORD Per [facility] pt is a ble to return at ma. Normal [facility] CARECOORD Normal [facility] CARECOORD IMM letter given to patient. Normal [facility] GROUPNOTEon 07-25-2024 GROUPNOTE Normal [facility] Nursing Noteon 07-25-2024 Nursing Note Normal [facility] Nursing Note Normal [facility] Nursing Note Normal [facility] Progress Noteon 07-25-2024 Progress Note Patient was approach ed about group and denied interest at this time. Continue to engage Patient in groups to address stated treatment goals and objectives. LYUDMILA ClarkS Normal [facility] Progress Note Normal [facility] Progress Note Normal [facility] Progress Note Normal [facility] BASIC METABOLIC PANELon 10-0 Anion gap [Moles/Vol] 9 mmol/L Normal 3-13 [facility] Comment on above: Performed By: #### L AB15 ####Fur Comber: ARA WRIGHT ([id number])[facility] ([facility])[address] [place] [address] Calcium [Mass/Vol] 9.5 mg/dL Normal 8.4-10.4 [facility] Comment on above: Performed By: #### L AB15 ####Fur Comber: ARA WRIGHT ([id number])[facility] ([facility])[address] [place] [address] Chloride [Moles/Vol] 101 mmol/L Normal 98-107 [facility] Comment on above: Performed By: #### L AB15 ####Fur Comber: ARA WRIGHT ([id number])[facility] ([facility])[address] [place] [address] CO2 [Moles/Vol] 18 mmol/L Low 22-30 [facility] Comment on above: Performed By: #### L AB15 ####Fur Comber: ARA WRIGHT ([id number])[facility])[address] [place] [address] Creatinine [Mass/Vol] 0.89 mg/dL Normal 0.66-1.25 [facility] Comment on above: Performed By: #### L AB15 ####Fur Comber: ARA WRIGHT ([id number])[facility])[address] [place] [address] GLOMERULAR FILTRATION RATE ML/MIN/1.73 SQ M.PREDICTED >90.0 Normal >60.0 [facility] Comment on above: Result Comment: Calc ulation based on the Chronic Kidney Disease Epidemiology Collaboration (CKD-EPI) equation refit without adjustment for race Performed By: #### L AB15 ####Fur Comber: ARA WRIGHT ([id number])[facility])[address] [place] [address] Glucose [Mass/Vol] 110 mg/dL High 70-100 [facility] Comment on above: Performed By: #### L AB15 ####Fur Comber: ARA WRIGHT ([id number])[facility] ([facility])[address] [place] [address] Potassium [Moles/Vol] 4.3 mmol/L Normal 3.5-5.1 [facility] Comment on above: Performed By: #### L AB15 ####Fur Comber: ARA WRIGHT ([id number])[facility])[address] [place] [address] Sodium [Moles/Vol] 128 mmol/L Low 135-145 [facility] Comment on above: Performed By: #### L AB15 ####Fur Comber: ARA WRIGHT ([id number])[facility])[address] [place] [address] Urea nitrogen [Mass/Vol] 12 mg/dL Normal 9-20 [facility] Comment on above: Performed By: #### L AB15 ####Fur Comber: ARA WRIGHT ([id number])[facility])[address] [place] [address] CARECOORDon 07-24-2024 [facility] Patient seen and evaluated in coverage. Please see resident's physician note for details Normal [facility] Nursing Noteon 07-24-2024 Nursing Note Normal [facility] Nursing Note Patient resting in b ed after the vistaril. Normal [facility] Nursing Note Patient has anxiety, has hand tremors, Vistaril 50 mg for c/o anxiety, upset with people at times, support given. Normal [facility] Nursing Note Pt compliant with medications, cooperative with care, denies pain, denies harm to self and others, pt appreciative of care. Pt denies AVH. Encouraged ADLs. Normal [facility] Nursing Note Normal [facility] OSMOLALITY, SERUMon 07-24-20 24 OSMOLALITY, SERUM 275 mOsm/kg Low 280-300 [facility] Comment on above: Performed By: #### L AB107 ####Fur Comber: ARA WRIGHT ([id number])[address] OSMOLALITY, URINEon 07-24-20 24 OSMOLALITY, URINE 230 mOsm/kg Low 300-1000 [facility] Comment on above: Performed By: #### L AB420, [id number] ####Fur Comber: ARA WRIGHT ([id number])[facility])[address] [place] [address] Progress Noteon 07-24-2024 Progress Note Normal [facility] Progress Note Normal [facility] Progress Note Normal [facility] SODIUM, URINE, RANDOMon 10-0 Sodium (U) [Moles/Vol] 39 mmol/L Normal 30-90 [facility] Comment on above: Performed By: #### L AB420, [id number] ####Fur Comber: ARA WRIGHT ([id number])[address] CARECOORDon 07-23-2024 CARECOORD Patient seen and exa mined in coverage. Full note by resident physician. Normal [facility] CAR[place]OORD Normal [facility] Consulton 07-23-[address] [facility] ED Nursing Noteon 07-23-2024 ED Nursing Note Report to loida Mchugh RN 07/23/[address] [facility] ED Nursing Note Pt report called to todd Mchugh RN 07/23/[address] [facility] GROUPNOTEon 07-23-2024 GROUPNOTE Normal [facility] IDNon 07-23-2024 IDN Will admit to consum ing > 50% of supplements. 1 Kris orange bid 10a/HS, 1 Ensure Max @ 2p daily [facility] IDN Normal [facility] [facility] IDN Normal [facility] Nursing Noteon 07-23-2024 Nursing Note Normal [facility] Nursing Note Normal [facility] Nursing Note Normal [facility] Nursing Note Normal [facility] Progress Noteon 07-23-2024 Progress Note Normal [facility] Progress Note Normal [facility] Progress Note Normal [facility] CBC WITH AUTO DIFFERENTIALon 07-22-2024 Basophils (Bld) [#/Vol] 0.0 10*3/uL Normal 0.0-0.2 [facility] Comment on above: Performed By: #### L [id number] ####Fur Comber: ARA WRIGHT ([id number])[facility]ENTERA [place] (SWRLAB)[address] [place] [address] [place] Basophils/100 WBC (Bld) 0.5 % Normal 0.0-2.0 [facility] Comment on above: Performed By: #### L [id number] ####Fur Comber: ARA WRIGHT ([id number])[facility]ENTERA [place] (SWRLAB)[address] [place] [address] [place] Eosinophils (Bld) [#/Vol] 0.2 10*3/uL Normal 0.0-0.5 [facility] Comment on above: Performed By: #### L [id number] ####Fur Comber: ARA WRIGHT ([id number])[facility] CENTEROctavia LARADAKOTA RITTMAN (SWRLAB)[address] [place] [address] [place] Eosinophils/100 WBC (Bld) 1.9 % Normal 0.0-6.0 [facility] Comment on above: Performed By: #### L [id number] ####Fur Comber: ARA WRIGHT ([id number])[facility]ENTERA [place] (SWRLAB)[address] [place] [address] [place] Erythrocyte distribution width (RBC) [Ratio] 14.1 % Normal 11.5-15.0 [facility] Comment on above: Performed By: #### L [id number] ####Fur Comber: ARA WRIGHT ([id number])[facility] [place] RITTMAN (SWRLAB)[address] [place] [address] Hematocrit (Bld) [Volume fraction] 32.0 % Low 40.0-52.0 [facility] Comment on above: Performed By: #### L [id number] ####Fur Comber: ARA WRIGHT ([id number])[facility] CENTEROctavia DUNC[place] RITTMAN (SWRLAB)[address] [place] [address] Hemoglobin (Bld) [Mass/Vol] 11.0 g/dL Low 13.0-18.0 [facility] Comment on above: Performed By: #### L [id number] ####Fur Comber: ARA WRIGHT ([id number])[facility] CENTEROctavia [place] R[place]AN (SWRLAB)[address] [place] [address] IMMATURE GRANS % 0.2 % Normal 0.0-2.0 [facility] Comment on above: Performed By: #### L [id number] ####Fur Comber: ARA WRIGHT ([id number])[facility] CENTEROctavia [place] RIT[place] (SWRLAB)[address] [place] [address] IMMATURE GRANS ABSOLUTE 0.0 10*3/uL Normal <0.1 [facility] Comment on above: Performed By: #### L [id number] ####Fur Comber: ARA WRIGHT ([id number])[facility] CENTEROctavia [place] R[place] (SWRLAB)[address] [place] [address] Lymphocytes (Bld) [#/Vol] 1.9 10*3/uL Normal 1.0-4.3 [facility] Comment on above: Performed By: #### L [id number] ####Fur Comber: ARA WRIGHT ([id number])[facility] CENTEROctavia [place] R[place] (SWRLAB)[address] [place] [address] [place] Lymphocytes/100 WBC (Bld) 22.7 % Normal 15.0-45.0 [facility] Comment on above: Performed By: #### L [id number] ####Fur Comber: ARA WRIGHT ([id number])[facility] CENTEROctavia [place] R[place] (SWRLAB)[address] [place] [address] MCH (RBC) [Entitic mass] 30.8 pg Normal 26.0-34.0 [facility] Comment on above: Performed By: #### L [id number] ####Fur Comber: ARA WRIGHT ([id number])[facility] CENTEROctavia [place] R[place] (SWRLAB)[address] [place] [address] MCHC 34.4 % Normal 30.5-36.0 [facility] Comment on above: Performed By: #### L [id number] ####Fur Comber: ARA WRIGHT ([id number])[facility] CENTEROctavia [place] R[place] (SWRLAB)[address] [place] [address] MCV (RBC) [Entitic vol] 89.6 fL Normal 77.0-99.0 [facility] Comment on above: Performed By: #### L [id number] ####Fur Comber: ARA WRIGHT ([id number])[facility] CENTEROctavia [place] R[place] (SWRLAB)[address] [place] [address] Monocytes (Bld) [#/Vol] 0.6 10*3/uL Normal 0.0-0.9 [facility] Comment on above: Performed By: #### L [id number] ####Fur Comber: ARA WRIGHT ([id number])[facility] CENTEROctavia [place] R[place] (SWRLAB)[address] [place] [address] [place] Monocytes/100 WBC (Bld) 6.8 % Normal 5.0-13.0 [facility] Comment on above: Performed By: #### L [id number] ####Fur Comber: ARA WRIGHT ([id number])[facility] CENTEROctavia [place] R[place] (SWRLAB)[address] [place] [address] NEUTROPHILS ABSOLUTE 5.7 10*3/uL Normal 1.8-7.5 [facility] Comment on above: Performed By: #### L [id number] ####Fur Comber: ARA WRIGHT ([id number])[facility] CENTEROctavia [place] (SWRLAB)[address] [place] [address] Neutrophils/100 WBC (Bld) 67.9 % Normal 38.0-82.0 [facility] Comment on above: Performed By: #### L [id number] ####Fur Comber: ARA WRIGHT ([id number])[facility] CENTEROctavia [place] R[place] (SWRLAB)[address] [place] [address] NRBC 0.0 /100 WBCs Normal 0.0-2.0 [facility] Comment on above: Performed By: #### L [id number] ####Fur Comber: ARA WRIGHT ([id number])[facility] CENTEROctavia [place] (SWRLAB)[address] [place] [address] Platelet mean volume (Bld) [Entitic vol] 9.2 fL Normal 9.0-12.7 [facility]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 nitrogen [Mass/Vol] 13 mg/dL 9 - 20 mg/dL [facility] CARECOORDon 07-10-2024 CARECOORD Normal [facility] CBC (HEMOGRAM)on 07-10-2024 Erythrocyte distribution width (RBC) [Ratio] 14.3 % Normal 11.5-15.0 [facility] Comment on above: Performed By: #### L AB294 ####Fur Comber: ARA WRIGHT ([id number])[facility])[address] [place] [address] Hematocrit (Bld) [Volume fraction] 29.2 % Low 40.0-52.0 [facility] Comment on above: Performed By: #### L AB294 ####Fur Comber: ARA WRIGHT ([id number])[facility])[address] [place] [address] Hemoglobin (Bld) [Mass/Vol] 9.8 g/dL Low 13.0-18.0 [facility] Comment on above: Performed By: #### L AB294 ####Fur Comber: ARA WRIGHT ([id number])[facility])[address] [place] [address] MCH (RBC) [Entitic mass] 30.5 pg Normal 26.0-34.0 [facility] Comment on above: Performed By: #### L AB294 ####Fur Comber: ARA WRIGHT ([id number])[facility])[address] [place] [address] MCHC 33.6 % Normal 30.5-36.0 [facility] Comment on above: Performed By: #### L AB294 ####Fur Comber: ARA WRIGHT ([id number])[facility])[address] [place] [address] MCV (RBC) [Entitic vol] 91.0 fL Normal 77.0-99.0 [facility] Comment on above: Performed By: #### L AB294 ####Fur Comber: ARA WRIGHT ([id number])[facility])[address] [place] [address] Platelet mean volume (Bld) [Entitic vol] 10.4 fL Normal 9.0-12.7 [facility] Comment on above: Performed By: #### L AB294 ####Fur Comber: ARA WRIGHT ([id number])[facility] ([facility])[address] [place] [address] Platelets (Bld) [#/Vol] 150 10*3/uL Normal 140-440 [facility] Comment on above: Performed By: #### L AB294 ####Fur Comber: ARA WRIGHT ([id number])[facility] ([facility])[address] [place] [address] RBC (Bld) [#/Vol] 3.21 10*6/uL Low 4.40-5.90 [facility] Comment on above: Performed By: #### L AB294 ####Fur Comber: ARA WRIGHT ([id number])[facility] ([facility])[address] [place] [address] WBC (Bld) [#/Vol] 5.7 10*3/uL Normal 3.6-10.7 [facility] Comment on above: Performed By: #### L AB294 ####Fur Comber: ARA WRIGHT ([id number])[facility] ([facility])[address] [place] [address] CBC panel Auto (Bld)on 07-10 Erythrocyte distribution width (RBC) [Ratio] 14.3 % 11.5 - 15.0 % [facility] Hematocrit (Bld) [Volume fraction] 29.2 % Low 40.0 - 52.0 % [facility] Hemoglobin (Bld) [Mass/Vol] 9.8 g/dL Low 13.0 - 18.0 g/dL [facility] Interpretation and review of laboratory results Abnormal [facility] MCH (RBC) [Entitic mass] 30.5 pg 26.0 - 34.[address] [facility] MCHC (RBC) [Mass/Vol] 33.6 % 30.5 - 36.0 % [facility] MCV (RBC) [Entitic vol] 91.0 fL 77.0 - 99.[address] [facility] Platelet mean volume (Bld) [Entitic vol] 10.4 fL 9.0 - 12.[address] [facility] Platelets (Bld) [#/Vol] 150 10*3/uL 140 - 440 10*3/uL [facility] RBC (Bld) [#/Vol] 3.21 10*6/uL Low 4.40 - 5.9 0 10*6/uL [facility] WBC (Bld) [#/Vol] 5.7 10*3/uL 3.6 - 10.7 10*3/uL [facility] IDNon 07-10-2024 IDN Normal [facility] IDN Normal [facility] Laboratory - Microbiology an d Antimicrobial susceptibilityOrdered By: Daniel Madison on 07-10-2024 SARS-CoV-2 (COVID-19) Ag IA.rapid Ql (Resp) Negative Negative [facility] Comment on above: A negative result do es not rule out the possibility of SARS-CoV-2 infection. NAAT-based methods should be considered for symptomatic patients presenting greater than seven days after onset of symptoms. Method: Lateral flow immunoassay. Fact sheets for healthcare providers and patients can be found at the following sites: https://www.fda.gov/media/290824/download https://www.fda.gov/media/844720/download Nursing Noteon 07-10-2024 Nursing Note Notified Resp about patient's Tx ordered. Normal [facility] Nursing Note Patient did not want a resp TX, his lungs are clear, no SOB. Pulse ox was 97% on RA. Normal [facility] Nursing Note Normal [facility] Progress Noteon 07-10-2024 Progress Note Nutrition update completed. Chart reviewed. Patient to be monitored and followed by the diet edger technician. LATRICE José Normal [facility] Progress Note Normal [facility] Progress Note Normal [facility] Progress Note Normal [facility] SARS-COV-2 ANTIGENon 024 SARS-COV-2 ANTIGEN Normal [facility] Comment on above: Performed By: #### L [id number] ####Fur Comber: ARA WRIGHT ([id number])[address] SARS-CoV-2 (COVID-19) Ag IA. rapid Ql (Resp)Ordered By: Daniel Madison on 07-10-2024 Interpretation and review of laboratory results Normal [facility] BASIC METABOLIC PANELon 06-20 Anion gap [Moles/Vol] 8 mmol/L Normal 3-13 [facility] Comment on above: Performed By: #### L AB15 ####Fur Comber: ARA WRIGHT ([id number])[facility])[address] [place] [address] Calcium [Mass/Vol] 9.0 mg/dL Normal 8.4-10.4 [facility] Comment on above: Performed By: #### L AB15 ####Fur Comber: ARA WRIGHT ([id number])[facility])[address] [place] [address] Chloride [Moles/Vol] 109 mmol/L High 98-107 [facility] Comment on above: Performed By: #### L AB15 ####Fur Comber: ARA WRIGHT ([id number])[facility] ([facility])[address] [place] [address] CO2 [Moles/Vol] 18 mmol/L Low 22-30 [facility] Comment on above: Performed By: #### L AB15 ####Fur Comber: ARA WRIGHT ([id number])[facility])[address] [place] [address] Creatinine [Mass/Vol] 0.93 mg/dL Normal 0.66-1.25 [facility] Comment on above: Performed By: #### L AB15 ####Fur Comber: ARA WRIGHT ([id number])[facility])[address] [place] [address] GLOMERULAR FILTRATION RATE ML/MIN/1.73 SQ M.PREDICTED >90.0 Normal >60.0 [facility] Comment on above: Result Comment: Calc ulation based on the Chronic Kidney Disease Epidemiology Collaboration (CKD-EPI) equation refit without adjustment for race Performed By: #### L AB15 ####Fur Comber: ARA WRIGHT ([id number])[facility] ([facility])[address] [place] [address] Glucose [Mass/Vol] 125 mg/dL High 70-100 [facility] Comment on above: Performed By: #### L AB15 ####Fur Comber: ARA WRIGHT ([id number])[facility] ([facility])[address] [place] [address] Potassium [Moles/Vol] 3.9 mmol/L Normal 3.5-5.1 [facility] Comment on above: Performed By: #### L AB15 ####Fur Comber: ARA WRIGHT ([id number])[facility] ([facility])[address] [place] [address] Sodium [Moles/Vol] 135 mmol/L Normal 135-145 [facility] Comment on above: Performed By: #### L AB15 ####Fur Comber: ARA WRIGHT ([id number])[facility] ([facility])[address] [place] [address] Urea nitrogen [Mass/Vol] 8 mg/dL Low 9-20 [facility] Comment on above: Performed By: #### L AB15 ####Fur Comber: ARA WRIGHT ([id number])[facility])[address] [place] [address] Basic metabolic 1998 panelon 07-09-2024 Anion gap [Moles/Vol] 8 mmol/L 3 - 13 mmol/L [facility] Calcium [Mass/Vol] 9.0 mg/dL 8.4 - 10. 4 mg/dL [facility] Chloride [Moles/Vol] 109 mmol/L High 98 - 10 7 mmol/L [facility] CO2 [Moles/Vol] 18 mmol/L Low 22 - 30 mmol/L [facility] Creatinine [Mass/Vol] 0.93 mg/dL 0.66 - 1.25 mg/dL [facility] GFR/1.73 sq M.predicted (S/P/Bld) [Vol rate/Area] - PINF [facility] Comment on above: Calculation based on the Chronic Kidney Disease Epidemiology Collaboration (CKD-EPI) equation refit without adjustment for race Glucose [Mass/Vol] 125 mg/dL High 70 - 100 mg/dL [facility] Interpretation and review of laboratory results Abnormal [facility] Potassium [Moles/Vol] 3.9 mmol/L 3.5 - 5.1 mmol/L [facility] Sodium [Moles/Vol] 135 mmol/L 135 - 145 mmol/L [facility] Urea nitrogen [Mass/Vol] 8 mg/dL Low 9 - 20 mg/dL [facility] CBC (HEMOGRAM)on 07-09-2024 Erythrocyte distribution width (RBC) [Ratio] 13.9 % Normal 11.5-15.0 [facility] Comment on above: Performed By: #### L [id number] ####Fur Comber: ARA WRIGHT ([id number])[address] Hematocrit (Bld) [Volume fraction] 28.3 % Low 40.0-52.0 [facility] Comment on above: Performed By: #### L [id number] ####Fur Comber: ARA WRIGHT ([id number])[address] Hemoglobin (Bld) [Mass/Vol] 9.8 g/dL Low 13.0-18.0 [facility] Comment on above: Performed By: #### L AB294 ####Fur Comber: ARA WRIGHT ([id number])[facility])[address] [place] [address] MCH (RBC) [Entitic mass] 30.8 pg Normal 26.0-34.0 [facility] Comment on above: Performed By: #### L [id number] ####Fur Comber: ARA WRIGHT ([id number])[address] MCHC 34.6 % Normal 30.5-36.0 [facility] Comment on above: Performed By: #### L AB294 ####Fur Comber: ARA WRIGHT ([id number])[facility] ([facility])[address] [place] [address] MCV (RBC) [Entitic vol] 89.0 fL Normal 77.0-99.0 [facility] Comment on above: Performed By: #### L [id number] ####Fur Comber: ARA WRIGHT ([id number])[facility])[address] [place] [address] Platelet mean volume (Bld) [Entitic vol] 9.7 fL Normal 9.0-12.7 [facility] Comment on above: Performed By: #### L [id number] ####Fur Comber: ARA WRIGHT ([id number])[facility])[address] [place] [address] Platelets (Bld) [#/Vol] 164 10*3/uL Normal 140-440 [facility] Comment on above: Performed By: #### L [id number] ####Fur Comber: ARA WRIGHT ([id number])[facility])[address] [place] [address] RBC (Bld) [#/Vol] 3.18 10*6/uL Low 4.40-5.90 [facility] Comment on above: Performed By: #### L [id number] ####Fur Comber: ARA WRIGHT ([id number])[facility])[address] [place] [address] WBC (Bld) [#/Vol] 6.3 10*3/uL Normal 3.6-10.7 [facility] Comment on above: Performed By: #### L [id number] ####Fur Comber: ARA WRIGHT ([id number])[facility])[address] [place] [address] CBC panel Auto (Bld)on 07-09 Erythrocyte distribution width (RBC) [Ratio] 13.9 % 11.5 - 15.0 % [facility] Hematocrit (Bld) [Volume fraction] 28.3 % Low 40.0 - 52.0 % [facility] Hemoglobin (Bld) [Mass/Vol] 9.8 g/dL Low 13.0 - 18.0 g/dL [facility] Interpretation and review of laboratory results Abnormal [facility] MCH (RBC) [Entitic mass] 30.8 pg 26.0 - 34.[address] [facility] MCHC (RBC) [Mass/Vol] 34.6 % 30.5 - 36.0 % [facility] MCV (RBC) [Entitic vol] 89.0 fL 77.0 - 99.[address] [facility] Platelet mean volume (Bld) [Entitic vol] 9.7 fL 9.0 - 12.[address] [facility] Platelets (Bld) [#/Vol] 164 10*3/uL 140 - 440 10*3/uL [facility] RBC (Bld) [#/Vol] 3.18 10*6/uL Low 4.40 - 5.9 0 10*6/uL [facility] WBC (Bld) [#/Vol] 6.3 10*3/uL 3.6 - 10.7 10*3/uL [facility] IDNon 07-09-2024 IDN Normal [facility] Nursing Noteon 07-09-2024 Nursing Note Normal [facility] Progress Noteon 07-09-2024 Progress Note Normal [facility] BASIC METABOLIC PANELon 06-20 Anion gap [Moles/Vol] 5 mmol/L Normal 3-13 [facility] Comment on above: Performed By: #### L AB15 ####Fur Comber: ARA WRIGHT ([id number])[address] Calcium [Mass/Vol] 8.9 mg/dL Normal 8.4-10.4 [facility] Comment on above: Performed By: #### L AB15 ####Fur Comber: ARA WRIGHT ([phone])[facility] ([facility])[address] [place] [address] Chloride [Moles/Vol] 108 mmol/L High 98-107 [facility] Comment on above: Performed By: #### L AB15 ####Fur Comber: ARA WRIGTH ([id number])[facility] ([facility])[address] [place] [address] CO2 [Moles/Vol] 22 mmol/L Normal 22-30 [facility] Comment on above: Performed By: #### L AB15 ####Fur Comber: ARA WRIGHT ([id number])[facility] ([facility])[address] [place] [address] Creatinine [Mass/Vol] 0.90 mg/dL Normal 0.66-1.25 [facility] Comment on above: Performed By: #### L AB15 ####Fur Comber: ARA WRIGHT ([id number])[facility] ([facility])[address] [place] [address] GLOMERULAR FILTRATION RATE ML/MIN/1.73 SQ M.PREDICTED >90.0 Normal >60.0 [facility] Comment on above: Result Comment: Calc ulation based on the Chronic Kidney Disease Epidemiology Collaboration (CKD-EPI) equation refit without adjustment for race Performed By: #### L AB15 ####Fur Comber: ARA WRIGHT ([id number])[facility] ([facility])[address] [place] [address] [place] Glucose [Mass/Vol] 97 mg/dL Normal 70-100 [facility] Comment on above: Performed By: #### L AB15 ####Fur Comber: ARA WRIGHT ([id number])[facility] ([facility])[address] [place] [address] [place] Potassium [Moles/Vol] 4.0 mmol/L Normal 3.5-5.1 [facility] Comment on above: Performed By: #### L AB15 ####Fur Comber: ARA WRIGHT ([id number])[facility] ([facility])[address] [place] [address] [place] Sodium [Moles/Vol] 135 mmol/L Normal 135-145 [facility] Comment on above: Performed By: #### L AB15 ####Fur Comber: ARA WRIGHT ([id number])[facility] ([facility])[address] [place] [address] [place] Urea nitrogen [Mass/Vol] 8 mg/dL Low 9-20 [facility] Comment on above: Performed By: #### L AB15 ####Fur Comber: ARA WRIGHT ([id number])[facility])[address] [place] [address] Basic metabolic 1998 panelon 07-08-2024 Anion gap [Moles/Vol] 5 mmol/L 3 - 13 mmol/L [facility] Calcium [Mass/Vol] 8.9 mg/dL 8.4 - 10. 4 mg/dL [facility] Chloride [Moles/Vol] 108 mmol/L High 98 - 10 7 mmol/L [facility] CO2 [Moles/Vol] 22 mmol/L 22 - 30 mmol/L [facility] Creatinine [Mass/Vol] 0.90 mg/dL 0.66 - 1.25 mg/dL [facility] GFR/1.73 sq M.predicted (S/P/Bld) [Vol rate/Area] - PINF [facility] Comment on above: Calculation based on the Chronic Kidney Disease Epidemiology Collaboration (CKD-EPI) equation refit without adjustment for race Glucose [Mass/Vol] 97 mg/dL 70 - 100 mg/dL [facility] Interpretation and review of laboratory results Abnormal [facility] Potassium [Moles/Vol] 4.0 mmol/L 3.5 - 5.1 mmol/L [facility] Sodium [Moles/Vol] 135 mmol/L 135 - 145 mmol/L [facility] Urea nitrogen [Mass/Vol] 8 mg/dL Low 9 - 20 mg/dL [facility] CARECOORDon 07-08-2024 CARECOORD Normal [facility] CARECOORD Normal [facility] CBC (HEMOGRAM)on 07-08-2024 Erythrocyte distribution width (RBC) [Ratio] 13.8 % Normal 11.5-15.0 [facility] Comment on above: Performed By: #### L [id number] ####Fur Comber: ARA WRIGHT ([id number])[facility] ([facility])[address] [place] [address] Hematocrit (Bld) [Volume fraction] 29.1 % Low 40.0-52.0 [facility] Comment on above: Performed By: #### L [id number] ####Fur Comber: ARA WRIGHT ([id number])[facility] ([facility])[address] [place] [address] Hemoglobin (Bld) [Mass/Vol] 10.0 g/dL Low 13.0-18.0 [facility] Comment on above: Performed By: #### L [id number] ####Fur Comber: ARA WRIGHT ([id number])[facility])[address] [place] [address] MCH (RBC) [Entitic mass] 30.8 pg Normal 26.0-34.0 [facility] Comment on above: Performed By: #### L AB294 ####Fur Comber: ARA WRIGHT ([id number])[facility])[address] [place] [address] MCHC 34.4 % Normal 30.5-36.0 [facility] Comment on above: Performed By: #### L [id number] ####Fur Comber: ARA WRIGHT ([id number])[facility] ([facility])[address] [place] [address] MCV (RBC) [Entitic vol] 89.5 fL Normal 77.0-99.0 [facility] Comment on above: Performed By: #### L AB294 ####Fur Comber: ARA WRIGHT ([id number])[facility] ([facility])[address] [place] [address] Platelet mean volume (Bld) [Entitic vol] 9.5 fL Normal 9.0-12.7 [facility] Comment on above: Performed By: #### L AB294 ####Fur Comber: ARA WRIGHT ([id number])[facility] ([facility])[address] [place] [address] Platelets (Bld) [#/Vol] 172 10*3/uL Normal 140-440 [facility] Comment on above: Performed By: #### L [id number] ####Fur Comber: ARA WRIGHT ([id number])[facility])[address] [place] [address] RBC (Bld) [#/Vol] 3.25 10*6/uL Low 4.40-5.90 [facility] Comment on above: Performed By: #### L [id number] ####Fur Comber: ARA WRIGHT ([id number])[facility] ([facility])[address] [place] [address] WBC (Bld) [#/Vol] 5.4 10*3/uL Normal 3.6-10.7 [facility] Comment on above: Performed By: #### L [id number] ####Fur Comber: ARA WRIGHT ([id number])[facility] [place] [address] CBC panel Auto (Bld)on 07-08 Erythrocyte distribution width (RBC) [Ratio] 13.8 % 11.5 - 15.0 % [facility] Hematocrit (Bld) [Volume fraction] 29.1 % Low 40.0 - 52.0 % [facility] Hemoglobin (Bld) [Mass/Vol] 10.0 g/dL Low 13.0 - 18.0 g/dL [facility] Interpretation and review of laboratory results Abnormal [facility] MCH (RBC) [Entitic mass] 30.8 pg 26.0 - 34.[address] [facility] MCHC (RBC) [Mass/Vol] 34.4 % 30.5 - 36.0 % [facility] MCV (RBC) [Entitic vol] 89.5 fL 77.0 - 99.[address] [facility] Platelet mean volume (Bld) [Entitic vol] 9.5 fL 9.0 - 12.[address] [facility] Platelets (Bld) [#/Vol] 172 10*3/uL 140 - 440 10*3/uL [facility] RBC (Bld) [#/Vol] 3.25 10*6/uL Low 4.40 - 5.9 0 10*6/uL [facility] WBC (Bld) [#/Vol] 5.4 10*3/uL 3.6 - 10.7 10*3/uL [facility] IDNon 07-08-2024 IDN Normal [facility] IDN Normal [facility] IDN Normal [facility] Laboratory - Chemistry and C hemistry - challengeon 07-08-2024 Fat Ql (Stl) Normal Normal [facility] Comment on above: INTERPRETIVE INFORMA TION: Fecal Fat Qualitative Neutral fats include the monoglycerides, diglycerides, and triglycerides while split fats are the free fatty acids that are liberated from them. Impaired synthesis or secretion of pancreatic enzymes or bile may cause an increase in neutral fats while an increase in split fats suggests impaired absorption of nutrients. Performed By: [facility] [address] [place] [id number] Surgery Tech: Ana Heredia MD, PhD CLIA Number: [id number] Fat.neutral Ql (Stl) Normal Normal [facility] No Panel Informationon 07-[address] [facility] Progress Noteon 07-08-2024 Progress Note Normal [facility] Progress Note Normal [facility] Progress Note Normal [facility] Progress Note Normal [facility] 36on 07-07-2024 36 Pt is currently admi tted. Will contact pt when he get discharge. Thank you Normal [facility] 36 GI Staff to schedule d hospital follow up and colonoscopy once discharged. Normal [facility] BASIC METABOLIC PANELon 06-19 Anion gap [Moles/Vol] 5 mmol/L Normal 3-13 [facility] Comment on above: Performed By: #### L AB15 ####Fur Comber: ARA WRIGHT ([phone])[facility] ([facility])[address] [place] [address] Calcium [Mass/Vol] 8.5 mg/dL Normal 8.4-10.4 [facility] Comment on above: Performed By: #### L AB15 ####Fur Comber: ARA WRIGHT ([id number])[facility] ([facility])[address] [place] [address] [place] Chloride [Moles/Vol] 111 mmol/L High 98-107 [facility] Comment on above: Performed By: #### L AB15 ####Fur Comber: ARA WRIGHT ([id number])[facility] ([facility])[address] [place] [address] [place] CO2 [Moles/Vol] 17 mmol/L Low 22-30 [facility] Comment on above: Performed By: #### L AB15 ####Fur Comber: ARA WRIGHT ([id number])[facility])[address] [place] [address] Creatinine [Mass/Vol] 0.86 mg/dL Normal 0.66-1.25 [facility] Comment on above: Performed By: #### L AB15 ####Fur Comber: ARA WRIGHT ([id number])[facility])[address] [place] [address] GLOMERULAR FILTRATION RATE ML/MIN/1.73 SQ M.PREDICTED >90.0 Normal >60.0 [facility] Comment on above: Result Comment: Calc ulation based on the Chronic Kidney Disease Epidemiology Collaboration (CKD-EPI) equation refit without adjustment for race Performed By: #### L AB15 ####Fur Comber: ARA WRIGHT ([id number])[facility])[address] [place] [address] Glucose [Mass/Vol] 131 mg/dL High 70-100 [facility] Comment on above: Performed By: #### L AB15 ####Fur Comber: ARA WRIGHT ([id number])[facility])[address] [place] [address] Potassium [Moles/Vol] 3.9 mmol/L Normal 3.5-5.1 [facility] Comment on above: Performed By: #### L AB15 ####Fur Comber: ARA WRIGHT ([id number])[facility])[address] [place] [address] [place] Sodium [Moles/Vol] 134 mmol/L Low 135-145 [facility] Comment on above: Performed By: #### L AB15 ####Fur Comber: ARA WRIGHT ([id number])[facility])[address] [place] [address] [place] Urea nitrogen [Mass/Vol] 9 mg/dL Normal 9-20 [facility] Comment on above: Performed By: #### L AB15 ####Fur Comber: ARA WRIGHT ([id number])[facility] ([facility])[address] [place] [address] Basic metabolic 1998 panelon 07-07-2024 Anion gap [Moles/Vol] 5 mmol/L 3 - 13 mmol/L [facility] Calcium [Mass/Vol] 8.5 mg/dL 8.4 - 10. 4 mg/dL [facility] Chloride [Moles/Vol] 111 mmol/L High 98 - 10 7 mmol/L [facility] CO2 [Moles/Vol] 17 mmol/L Low 22 - 30 mmol/L [facility] Creatinine [Mass/Vol] 0.86 mg/dL 0.66 - 1.25 mg/dL [facility] GFR/1.73 sq M.predicted (S/P/Bld) [Vol rate/Area] - PINF [facility] Comment on above: Calculation based on the Chronic Kidney Disease Epidemiology Collaboration (CKD-EPI) equation refit without adjustment for race Glucose [Mass/Vol] 131 mg/dL High 70 - 100 mg/dL [facility] Interpretation and review of laboratory results Abnormal [facility] Potassium [Moles/Vol] 3.9 mmol/L 3.5 - 5.1 mmol/L [facility] Sodium [Moles/Vol] 134 mmol/L Low 135 - 145 mmol/L [facility] Urea nitrogen [Mass/Vol] 9 mg/dL 9 - 20 mg/dL [facility] CARECOORDon 07-07-2024 CARECOORD Normal [facility] CBC (HEMOGRAM)on 07-07-2024 Erythrocyte distribution width (RBC) [Ratio] 13.6 % Normal 11.5-15.0 [facility] Comment on above: Performed By: #### L [id number] ####Fur Comber: ARA WRIGHT ([id number])[facility] ([facility])[address] [place] [address] Hematocrit (Bld) [Volume fraction] 27.4 % Low 40.0-52.0 [facility] Comment on above: Performed By: #### L [id number] ####Fur Comber: ARA WRIGHT ([id number])[facility] ([facility])[address] [place] [address] Hemoglobin (Bld) [Mass/Vol] 9.5 g/dL Low 13.0-18.0 [facility] Comment on above: Performed By: #### L [id number] ####Fur Comber: ARA WRIGHT ([id number])[facility])[address] [place] [address] MCH (RBC) [Entitic mass] 30.7 pg Normal 26.0-34.0 [facility] Comment on above: Performed By: #### L AB294 ####Fur Comber: ARA WRIGHT ([id number])[facility])[address] [place] [address] MCHC 34.7 % Normal 30.5-36.0 [facility] Comment on above: Performed By: #### L AB294 ####Fur Comber: ARA WRIGHT ([id number])[facility] ([facility])[address] [place] [address] MCV (RBC) [Entitic vol] 88.7 fL Normal 77.0-99.0 [facility] Comment on above: Performed By: #### L AB294 ####Fur Comber: ARA WRIGHT ([id number])[facility])[address] [place] [address] Platelet mean volume (Bld) [Entitic vol] 9.7 fL Normal 9.0-12.7 [facility] Comment on above: Performed By: #### L AB294 ####Fur Comber: ARA WRIGHT ([id number])[facility] ([facility])[address] [place] [address] Platelets (Bld) [#/Vol] 176 10*3/uL Normal 140-440 [facility] Comment on above: Performed By: #### L AB294 ####Fur Comber: ARA WRIGHT ([id number])[facility])[address] [place] [address] RBC (Bld) [#/Vol] 3.09 10*6/uL Low 4.40-5.90 [facility] Comment on above: Performed By: #### L AB294 ####Fur Comber: ARA WRIGHT ([id number])[facility] ([facility])[address] [place] [address] WBC (Bld) [#/Vol] 5.3 10*3/uL Normal 3.6-10.7 [facility] Comment on above: Performed By: #### L [id number] ####Fur Comber: ARA WRIGHT ([id number])[facility] [place] [address] CBC panel Auto (Bld)on 07-07 Erythrocyte distribution width (RBC) [Ratio] 13.6 % 11.5 - 15.0 % [facility] Hematocrit (Bld) [Volume fraction] 27.4 % Low 40.0 - 52.0 % [facility] Hemoglobin (Bld) [Mass/Vol] 9.5 g/dL Low 13.0 - 18.0 g/dL [facility] Interpretation and review of laboratory results Abnormal [facility] MCH (RBC) [Entitic mass] 30.7 pg 26.0 - 34.[address] [facility] MCHC (RBC) [Mass/Vol] 34.7 % 30.5 - 36.0 % [facility] MCV (RBC) [Entitic vol] 88.7 fL 77.0 - 99.[address] [facility] Platelet mean volume (Bld) [Entitic vol] 9.7 fL 9.0 - 12.[address] [facility] Platelets (Bld) [#/Vol] 176 10*3/uL 140 - 440 10*3/uL [facility] RBC (Bld) [#/Vol] 3.09 10*6/uL Low 4.40 - 5.9 0 10*6/uL 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 Notified Physician. Normal [facility] Progress Noteon 07-07-2024 Progress Note Normal [facility] Progress Note Normal [facility] Progress Note Normal [facility] Progress Note Normal [facility] Progress Note Normal [facility] 36on 07-06-2024 36 Patient evaluated inpatient for diarrhea and abdominal pain. Needs OP colonoscopy. OV and please use inpatient colon spot for colonoscopy. Ok for LEENA. Normal [facility] BASIC METABOLIC PANELon 06-19 Anion gap [Moles/Vol] 10 mmol/L Normal 3-13 [facility] Comment on above: Performed By: #### L AB103, LAB15 ####Fur Comber: ARA WRIGHT ([id number])[facility])[address] [place] [address] Calcium [Mass/Vol] 8.9 mg/dL Normal 8.4-10.4 [facility] Comment on above: Performed By: #### L AB103, LAB15 ####Fur Comber: ARA WRIGHT ([id number])[facility])[address] [place] [address] Chloride [Moles/Vol] 108 mmol/L High 98-107 [facility] Comment on above: Performed By: #### L AB103, LAB15 ####Fur Comber: ARA WRIGHT ([id number])[facility])[address] [place] [address] CO2 [Moles/Vol] 16 mmol/L Low 22-30 [facility] Comment on above: Performed By: #### L AB103, LAB15 ####Fur Comber: ARA WRIGHT ([id number])[facility])[address] [place] [address] Creatinine [Mass/Vol] 0.93 mg/dL Normal 0.66-1.25 [facility] Comment on above: Performed By: #### L AB103, LAB15 ####Fur Comber: ARA [id number])[facility])[address] [place] [address] GLOMERULAR FILTRATION RATE ML/MIN/1.73 SQ M.PREDICTED >90.0 Normal >60.0 [facility] Comment on above: Result Comment: Calc ulation based on the Chronic Kidney Disease Epidemiology Collaboration (CKD-EPI) equation refit without adjustment for race Performed By: #### L AB103, LAB15 ####Fur Comber: ARA WRIGHT ([id number])[facility] ([facility])[address] [place] [address] Glucose [Mass/Vol] 184 mg/dL High 70-100 [facility] Comment on above: Performed By: #### L AB103, LAB15 ####Fur Comber: ARA WRIGHT ([id number])[facility])[address] [place] [address] Potassium [Moles/Vol] 3.4 mmol/L Low 3.5-5.1 [facility] Comment on above: Performed By: #### L AB103, LAB15 ####Fur Comber: ARA WRIGHT ([id number])[facility] ([facility])[address] [place] [address] Sodium [Moles/Vol] 135 mmol/L Normal 135-145 [facility] Comment on above: Performed By: #### L AB103, LAB15 ####Fur Comber: ARA WRIGHT ([id number])[facility])[address] [place] [address] Urea nitrogen [Mass/Vol] 13 mg/dL Normal 9-20 [facility] Comment on above: Performed By: #### L AB103, LAB15 ####Fur Comber: ARA WRIGHT ([id number])[facility])[address] [place] [address] Basic metabolic 1998 panelon 07-06-2024 Anion gap [Moles/Vol] 10 mmol/L 3 - 13 mmol/L [facility] Calcium [Mass/Vol] 8.9 mg/dL 8.4 - 10. 4 mg/dL [facility] Chloride [Moles/Vol] 108 mmol/L High 98 - 10 7 mmol/L [facility] CO2 [Moles/Vol] 16 mmol/L Low 22 - 30 mmol/L [facility] Creatinine [Mass/Vol] 0.93 mg/dL 0.66 - 1.25 mg/dL [facility] GFR/1.73 sq M.predicted (S/P/Bld) [Vol rate/Area] - PINF [facility] Comment on above: Calculation based on the Chronic Kidney Disease Epidemiology Collaboration (CKD-EPI) equation refit without adjustment for race Glucose [Mass/Vol] 184 mg/dL High 70 - 100 mg/dL [facility] Interpretation and review of laboratory results Abnormal [facility] Potassium [Moles/Vol] 3.4 mmol/L Low 3.5 - 5.1 mmol/L [facility] Sodium [Moles/Vol] 135 mmol/L 135 - 145 mmol/L [facility] Urea nitrogen [Mass/Vol] 13 mg/dL 9 - 20 mg/dL [facility] CARECOORDon 07-06-2024 CARECOORD Normal [facility] CBC (HEMOGRAM)on 07-06-2024 Erythrocyte distribution width (RBC) [Ratio] 13.3 % Normal 11.5-15.0 [facility] Comment on above: Performed By: #### L [id number] ####Fur Comber: ARA WRIGHT ([id number])[address] Hematocrit (Bld) [Volume fraction] 33.1 % Low 40.0-52.0 [facility] Comment on above: Performed By: #### L AB294 ####Fur Comber: ARA WRIGHT ([id number])[facility] ([facility])[address] [place] [address] [place] Hemoglobin (Bld) [Mass/Vol] 11.1 g/dL Low 13.0-18.0 [facility] Comment on above: Performed By: #### L AB294 ####Fur Comber: ARA WRIGHT ([id number])[facility] ([facility])[address] [place] [address] MCH (RBC) [Entitic mass] 30.2 pg Normal 26.0-34.0 [facility] Comment on above: Performed By: #### L AB294 ####Fur Comber: ARA WRIGHT ([id number])[facility])[address] [place] [address] MCHC 33.5 % Normal 30.5-36.0 [facility] Comment on above: Performed By: #### L AB294 ####Fur Comber: ARA WRIGHT ([id number])[facility])[address] [place] [address] MCV (RBC) [Entitic vol] 90.2 fL Normal 77.0-99.0 [facility] Comment on above: Performed By: #### L AB294 ####Fur Comber: ARA WRIGHT ([id number])[facility])[address] [place] [address] Platelet mean volume (Bld) [Entitic vol] 9.2 fL Normal 9.0-12.7 [facility] Comment on above: Performed By: #### L [id number] ####Fur Comber: ARA WRIGHT ([id number])[facility])[address] [place] [address] Platelets (Bld) [#/Vol] 192 10*3/uL Normal 140-440 [facility] Comment on above: Performed By: #### L AB294 ####Fur Comber: ARA WRIGHT ([id number])[facility])[address] [place] [address] RBC (Bld) [#/Vol] 3.67 10*6/uL Low 4.40-5.90 [facility] Comment on above: Performed By: #### L [id number] ####Fur Comber: ARA WRIGHT ([id number])[facility])[address] [place] [address] WBC (Bld) [#/Vol] 4.5 10*3/uL Normal 3.6-10.7 [facility] Comment on above: Performed By: #### L [id number] ####Fur Comber: ARA WRIGHT ([id number])[facility] ([facility])[address] [place] [address] CBC panel Auto (Bld)on 07-06 Erythrocyte distribution width (RBC) [Ratio] 13.3 % 11.5 - 15.0 % [facility] Hematocrit (Bld) [Volume fraction] 33.1 % Low 40.0 - 52.0 % [facility] Hemoglobin (Bld) [Mass/Vol] 11.1 g/dL Low 13.0 - 18.0 g/dL [facility] Interpretation and review of laboratory results Abnormal [facility] MCH (RBC) [Entitic mass] 30.2 pg 26.0 - 34.[address] [facility] MCHC (RBC) [Mass/Vol] 33.5 % 30.5 - 36.0 % [facility] MCV (RBC) [Entitic vol] 90.2 fL 77.0 - 99.[address] [facility] Platelet mean volume (Bld) [Entitic vol] 9.2 fL 9.0 - 12.[address] [facility] Platelets (Bld) [#/Vol] 192 10*3/uL 140 - 440 10*3/uL [facility] RBC (Bld) [#/Vol] 3.67 10*6/uL Low 4.40 - 5.9 0 10*6/uL [facility] WBC (Bld) [#/Vol] 4.5 10*3/uL 3.6 - 10.7 10*3/uL [facility] IDNon 07-06-2024 IDN Normal [facility] Laboratory - Chemistry and C hemistry - challengeon 07-06-2024 Magnesium [Mass/Vol] 1.4 mg/dL Low 1.6 - 2 .3 mg/dL [facility] MAGNESIUMon 07-06-2024 Magnesium [Mass/Vol] 1.4 mg/dL Low 1.6-2.3 [facility] Comment on above: Performed By: #### L [id number], LAB15 ####Fur Comber: ARA WRIGHT ([phone])[facility] [place] [address] Magnesium [Mass/Vol]on 07-06 Interpretation and review of laboratory results Abnormal [facility] Progress Noteon 07-06-2024 Progress Note Normal [facility] Progress Note Normal [facility] Progress Note Normal [facility] Progress Note Normal [facility] BASIC METABOLIC PANELon 06-19 Anion gap [Moles/Vol] 8 mmol/L Normal 3-13 [facility] Comment on above: Performed By: #### L AB99, LAB15 ####Fur Comber: ARA WRIGHT ([phone])[facility] [place] [address] Calcium [Mass/Vol] 8.6 mg/dL Normal 8.4-10.4 [facility] Comment on above: Performed By: #### L AB99, LAB15 ####Fur Comber: ARA WRIGHT ([id number])[facility] [place] [address] [place] Chloride [Moles/Vol] 100 mmol/L Normal 98-107 [facility] Comment on above: Performed By: #### L AB99, LAB15 ####Fur Comber: ARA WRIGHT ([phone])[facility] ([facility])[address] [place] [address] [place] CO2 [Moles/Vol] 18 mmol/L Low 22-30 [facility] Comment on above: Performed By: #### L AB99, LAB15 ####Fur Comber: ARA WRIGHT ([id number])[facility] [place] [address] [place] Creatinine [Mass/Vol] 1.13 mg/dL Normal 0.66-1.25 [facility] Comment on above: Performed By: #### L AB99, LAB15 ####Fur Comber: ARA WRIGHT ([phone])[facility])[address] [place] [address] [place] GLOMERULAR FILTRATION RATE ML/MIN/1.73 SQ M.PREDICTED 72.6 mL/min/1.73m*2 Normal >60.0 [facility] Comment on above: Result Comment: Calc ulation based on the Chronic Kidney Disease Epidemiology Collaboration (CKD-EPI) equation refit without adjustment for race Performed By: #### L AB99, LAB15 ####Fur Comber: ARA WRIGHT ([id number])[facility] ([facility])[address] [place] [address] Glucose [Mass/Vol] 125 mg/dL High 70-100 [facility] Comment on above: Performed By: #### L AB99, LAB15 ####Fur Comber: ARA WRIGHT ([id number])[facility] ([facility])[address] [place] [address] Potassium [Moles/Vol] 3.1 mmol/L Low 3.5-5.1 [facility] Comment on above: Performed By: #### L AB99, LAB15 ####Fur Comber: ARA WRIGHT ([id number])[facility] ([facility])[address] [place] [address] Sodium [Moles/Vol] 127 mmol/L Low 135-145 [facility] Comment on above: Performed By: #### L AB99, LAB15 ####Fur Comber: ARA WRIGHT ([id number])[facility])[address] [place] [address] Urea nitrogen [Mass/Vol] 17 mg/dL Normal 9-20 [facility] Comment on above: Performed By: #### L AB99, LAB15 ####Fur Comber: ARA WRIGHT ([id number])[facility])[address] [place] [address] Basic metabolic 1998 panelOr dered By: Gold Diaz on 07-05-2024 Anion gap [Moles/Vol] 8 mmol/L 3 - 13 mmol/L [facility] Calcium [Mass/Vol] 8.6 mg/dL 8.4 - 10. 4 mg/dL [facility] Chloride [Moles/Vol] 100 mmol/L 98 - 10 7 mmol/L [facility] CO2 [Moles/Vol] 18 mmol/L Low 22 - 30 mmol/L [facility] Creatinine [Mass/Vol] 1.13 mg/dL 0.66 - 1.25 mg/dL [facility] GFR/1.73 sq M.predicted (S/P/Bld) [Vol rate/Area] 72.6 mL/min - PINF [facility] Comment on above: Calculation based on the Chronic Kidney Disease Epidemiology Collaboration (CKD-EPI) equation refit without adjustment for race Glucose [Mass/Vol] 125 mg/dL High 70 - 100 mg/dL [facility] Interpretation and review of laboratory results Abnormal [facility] Potassium [Moles/Vol] 3.1 mmol/L Low 3.5 - 5.1 mmol/L [facility] Sodium [Moles/Vol] 127 mmol/L Low 135 - 145 mmol/L [facility] Urea nitrogen [Mass/Vol] 17 mg/dL 9 - 20 mg/dL [facility] C. DIFFICILE BY PCR WITH REF BEATRICE TO EIAon 07-05-2024 C. DIFFICILE BY PCR WITH REFLEX TO EIA C. DIFFICILE TOXIN PCR Reference Not Detected Not Detected ORDER COMMENTS: C. difficile infection is unlikely to be present. Methodology: Real-time PCR Normal [facility] Comment on above: Performed By: #### L [id number], [id number] ####Fur Comber: ARA WRIGHT ([id number])[address] C. difficile toxin genes SHANE +probe Ql (Stl)on 07-05-2024 C. difficile toxin B tcdB gene SHANE+probe Ql (Stl) Not detected Not Detected [facility] Interpretation and review of laboratory results Normal [facility] C. difficile infecti on is unlikely to be present. Methodology: Real-time PCR [facility] CALPROTECTIN STOOL (BKR QUES T)on 07-05-2024 [facility] CALPROTECTIN, STOOL 38 mcg/g Normal [facility] Comment on above: Result Comment: Refe rence Range: <50 Normal 50-120 Borderline >120 ElevatedCalprotectin in Crohn's disease and ulcerativecolitis can be five to several thousand timesabove the reference population (50 mcg/g or less).Levels are usually 50 mcg/g or less in healthypatients and with irritable bowel syndrome. Repeattesting in 4-6 weeks is suggested for borderlinevalues.Test performed by [facility] [id number] [place] [address] Nishozx Director: Rochelle Rodriguez MD,PHD,MBATest Reported by upurskill[facility]over[facility],[address] [place], [place] [address]Nbdfahzhaider Soto M.D., Ph.D., Director of [phone], CLIA [id number] Performed By: #### L [id number] ####[employer] (AMDBEAKER)[address] [place], [place] [facility] CBC W Auto Differential pane l (Bld)on 07-05-2024 Basophils (Bld) [#/Vol] 0.1 10*3/uL 0.0 - 0.2 10*3/uL [facility] Basophils/100 WBC (Bld) 0.7 % 0.0 - 2.0 % [facility] Eosinophils (Bld) [#/Vol] 0.1 10*3/uL 0.0 - 0.5 10*3/uL [facility] Eosinophils/100 WBC (Bld) 2.1 % 0.0 - 6.0 % [facility] Erythrocyte distribution width (RBC) [Ratio] 12.8 % 11.5 - 15.0 % [facility] Hematocrit (Bld) [Volume fraction] 31.6 % Low 40.0 - 52.0 % [facility] Hemoglobin (Bld) [Mass/Vol] 10.9 g/dL Low 13.0 - 18.0 g/dL [facility] Immature granulocytes (Bld) [#/Vol] 0.0 10*3/uL NINF - 0.1 10*3/uL [facility] Immature granulocytes/100 WBC (Bld) 0.4 % 0.0 - 2.0 % [facility] Interpretation and review of laboratory results Abnormal [facility] Lymphocytes (Bld) [#/Vol] 1.6 10*3/uL 1.0 - 4.3 10*3/uL [facility] Lymphocytes/100 WBC (Bld) 24.0 % 15.0 - 45.0 % [facility] MCH (RBC) [Entitic mass] 29.8 pg 26.0 - 34.[address] [facility] MCHC (RBC) [Mass/Vol] 34.5 % 30.5 - 36.0 % [facility] MCV (RBC) [Entitic vol] 86.3 fL 77.0 - 99.[address] [facility] Monocytes (Bld) [#/Vol] 0.6 10*3/uL 0.0 - 0.9 10*3/uL [facility] Monocytes/100 WBC (Bld) 9.1 % 5.0 - 13.0 % [facility] Neutrophils (Bld) [#/Vol] 4.3 10*3/uL 1.8 - 7.5 10*3/uL [facility] Neutrophils/100 WBC (Bld) 63.7 % 38.0 - 82.0 % [facility] Nucleated RBC/100 WBC (Bld) [Ratio] 0.0 % [facility] Platelet mean volume (Bld) [Entitic vol] 9.1 fL 9.0 - 12.[address] [facility] Platelets (Bld) [#/Vol] 187 10*3/uL 140 - 440 10*3/uL [facility] RBC (Bld) [#/Vol] 3.66 10*6/uL Low 4.40 - 5.9 0 10*6/uL [facility] WBC (Bld) [#/Vol] 6.7 10*3/uL 3.6 - 10.7 10*3/uL [facility] CBC WITH AUTO DIFFERENTIALon 07-05-2024 Basophils (Bld) [#/Vol] 0.1 10*3/uL Normal 0.0-0.2 [facility] Comment on above: Performed By: #### L [id number] ####Fur Comber: ARA WRIGHT ([id number])[address] Basophils/100 WBC (Bld) 0.7 % Normal 0.0-2.0 [facility] Comment on above: Performed By: #### L [id number] ####Fur Comber: ARA WRIGHT ([id number])[facility] ([facility])[address] [place] [address] Eosinophils (Bld) [#/Vol] 0.1 10*3/uL Normal 0.0-0.5 [facility] Comment on above: Performed By: #### L [id number] ####Fur Comber: ARA WRIGHT ([id number])[facility])[address] [place] [address] Eosinophils/100 WBC (Bld) 2.1 % Normal 0.0-6.0 [facility] Comment on above: Performed By: #### L [id number] ####Fur Comber: ARA WRIGHT ([id number])[address] Erythrocyte distribution width (RBC) [Ratio] 12.8 % Normal 11.5-15.0 [facility] Comment on above: Performed By: #### L [id number] ####Fur Comber: ARA WRIGHT ([id number])[address] Hematocrit (Bld) [Volume fraction] 31.6 % Low 40.0-52.0 [facility] Comment on above: Performed By: #### L [id number] ####Fur Comber: ARA WRIGHT ([id number])[address] Hemoglobin (Bld) [Mass/Vol] 10.9 g/dL Low 13.0-18.0 [facility] Comment on above: Performed By: #### L [id number] ####Fur Comber: ARA WRIGHT ([id number])[address] IMMATURE GRANS % 0.4 % Normal 0.0-2.0 [facility] Comment on above: Performed By: #### L [id number] ####Fur Comber: ARA WRIGHT ([id number])[address] IMMATURE GRANS ABSOLUTE 0.0 10*3/uL Normal <0.1 [facility] Comment on above: Performed By: #### L [id number] ####Fur Comber: ARA WRIGHT ([id number])[facility])[address] [place] [address] Lymphocytes (Bld) [#/Vol] 1.6 10*3/uL Normal 1.0-4.3 [facility] Comment on above: Performed By: #### L [id number] ####Fur Comber: ARA WRIGHT ([id number])[facility])[address] [place] [address] Lymphocytes/100 WBC (Bld) 24.0 % Normal 15.0-45.0 [facility] Comment on above: Performed By: #### L [id number] ####Fur Comber: ARA WRIGHT ([id number])[facility])[address] [place] [address] MCH (RBC) [Entitic mass] 29.8 pg Normal 26.0-34.0 [facility] Comment on above: Performed By: #### L [id number] ####Fur Comber: ARA WRIGHT ([id number])[facility])[address] [place] [address] MCHC 34.5 % Normal 30.5-36.0 [facility] Comment on above: Performed By: #### L [id number] ####Fur Comber: ARA WRIGHT ([id number])[facility])[address] [place] [address] MCV (RBC) [Entitic vol] 86.3 fL Normal 77.0-99.0 [facility] Comment on above: Performed By: #### L [id number] ####Fur Comber: ARA WRIGHT ([id number])[facility])[address] [place] [address] Monocytes (Bld) [#/Vol] 0.6 10*3/uL Normal 0.0-0.9 [facility] Comment on above: Performed By: #### L [id number] ####Fur Comber: ARA WRIGHT ([id number])[facility] [place] [address] Monocytes/100 WBC (Bld) 9.1 % Normal 5.0-13.0 [facility] Comment on above: Performed By: #### L [id number] ####Fur Comber: ARA WRIGHT ([id number])[facility])[address] [place] [address] NEUTROPHILS ABSOLUTE 4.3 10*3/uL Normal 1.8-7.5 [facility] Comment on above: Performed By: #### L [id number] ####Fur Comber: ARA WRIGHT ([id number])[facility])[address] [place] [address] Neutrophils/100 WBC (Bld) 63.7 % Normal 38.0-82.0 [facility] Comment on above: Performed By: #### L [id number] ####Fur Comber: ARA WRIGHT ([id number])[facility] ([facility])[address] [place] [address] NRBC 0.0 /100 WBCs Normal 0.0-2.0 [facility] Comment on above: Performed By: #### L [id number] ####Fur Comber: ARA WRIGHT ([id number])[facility] ([facility])[address] [place] [address] Platelet mean volume (Bld) [Entitic vol] 9.1 fL Normal 9.0-12.7 [facility] Comment on above: Performed By: #### L [id number] ####Fur Comber: ARA WRIGHT ([id number])[facility] ([facility])[address] [place] [address] Platelets (Bld) [#/Vol] 187 10*3/uL Normal 140-440 [facility] Comment on above: Performed By: #### L [id number] ####Fur Comber: ARA WRIGHT ([id number])[facility] ([facility])[address] [place] [address] RBC (Bld) [#/Vol] 3.66 10*6/uL Low 4.40-5.90 [facility] Comment on above: Performed By: #### L [id number] ####Fur Comber: ARA WRIGHT ([id number])[facility] ([facility])[address] [place] [address] WBC (Bld) [#/Vol] 6.7 10*3/uL Normal 3.6-10.7 [facility] Comment on above: Performed By: #### L [id number] ####Fur Comber: ARA ROBERTSONTim ([id number])[facility] ([facility])[address] [place] [address] CT ABDOMEN PELVIS W CONTRAST on 07-05-2024 CT ABDOMEN PELVIS W CONTRAST Normal [facility] CT Abdomen and Pelvis W cont rast Joaquin 07-05-2024 1. No acute process. Report Dictated on Electronically Signed By: Lloyd Onofre MD Electronically Signed Date/Time: 07/05/2024 1:55 PM T [facility] 1960 [id number] Exam Date/Time: 07/05/2024 13:10 Procedure: CT ABDOMEN [...] identified. Mild retrolisthesis of L2-3, L2-L5 laminectomies. [facility] Lloyd Onofre M D - [...] Signed Date/Time: 07/05/2024 1:55 PM EDT [facility] Radiology Study observation (narrative) [facility] CT Abdomen and Pelvis W cont rast IVOrdered By: Lloyd Onofre on 07-05-2024 [facility] Work Phone: Consulton 07-05-2024 Consult Normal [facility] Consult Normal [facility] Consult Normal [facility] Consult Normal [facility] Consult Normal [facility] FECAL FAT, QUALITATIVEon FECAL FAT - NEUTRAL Normal Normal Normal [facility] Comment on above: Performed By: #### L [id number] ####[facility] ([facility])[address] [place] [address] [place] FECAL FAT - SPLIT Normal Normal Normal [facility] Comment on above: Result Comment: INTE RPRETIVE INFORMATION: Fecal Fat QualitativeNeutral fats include the monoglycerides, diglycerides, andtriglycerides while split fats are the free fatty acidsthat are liberated from them. Impaired synthesis orsecretion of pancreatic enzymes or bile may cause anincrease in neutral fats while an increase in split fatssuggests impaired absorption of nutrients.Performed By: [facility] [place], [place] [address]Qpdjsmuhgr Director: Ana Heredia MD, PhDCLIA Number: [id number] Performed By: #### L [id number] ####[facility] ([facility])[address] [place] [address] [place] GASTROINTESTINAL PCR PANELon 07-05-2024 GASTROINTESTINAL PCR PANEL Normal [facility] Comment on above: Performed By: #### L [id number], [id number] ####Fur Comber: ARA WRIGHT ([id number])[facility] ([facility] Gastrointestinal pathogens p mac SHANE+probe (Stl)Ordered By: Jose Bell on 07-05-2024 Adenovirus F 40/41 Not detected Not Detected [facility] Astrovirus Not detected Not Detected [facility] Campylobacter Not detected Not Detected [facility] Cryptosporidium Not detected Not Detected [facility] Cyclospora cayetanensis Not detected Not Detected [facility] Entamoeba histolytica Not detected Not Detected [facility] Enterotoxigenic E coli (ETEC) Not detected Not Detected [facility] Giardia lamblia Not detected Not Detected [facility] Interpretation and review of laboratory results Normal [facility] Norovirus GI/GII Not detected Not Detected [facility] Plesiomonas shigelloides Not detected Not Detected [facility] Rotavirus A Not detected Not Detected [facility] Salmonella Not detected Not Detected [facility] Sapovirus Not detected Not Detected [facility] Shiga toxin-producing E coli (STEC) Not detected Not Detected [facility] Shigella/Enteroinvasiv e E coli (EIEC) Not detected Not Detected [facility] Vibrio cholerae Not detected Not Detected [facility] Vibrio species Not detected Not Detected [facility] Yersinia enterocolitica Not detected Not Detected [facility] A positive Norovirus result on the Film Array GI panel should be interpreted in the context of the patient's history and clinical picture. If results are not consistent, result should be confirmed with a Norovirus specific assay. Methodology: Multiplex PCR [facility] IDNon 07-05-2024 IDN Normal [facility] IDN Normal [facility] LACTIC ACID WITH REFLEXon Lactate [Moles/Vol] 0.7 mmol/L Normal 0.7-2.0 [facility] Comment on above: Performed By: #### L [id number] ####Fur Comber: ARA WRIGHT ([id number])[facility] ([facility])[address] [place] [address] LIPASEon 07-05-2024 Lipase [Catalytic activity/Vol] 134 U/L Normal 23-300 [facility] Comment on above: Performed By: #### L AB99, LAB15 ####Fur Comber: ARA WRIGHT ([id number])[facility] ([address] Laboratory - Chemistry and C hemistry - challengeon 07-05-2024 Lipase [Catalytic activity/Vol] 134 U/L 23 - 300 U/L [facility] Lactate [Moles/Vol] 0.7 mmol/L 0.7 - 2. 0 mmol/L [facility] Lipase [Catalytic activity/V ol]on 07-05-2024 Interpretation and review of laboratory results Normal [facility] No Panel Informationon 07-05 Interpretation and review of laboratory results Normal [facility] Progress Noteon 07-05-2024 Progress Note Normal [facility] Progress Note Normal [facility] Progress Note Normal [facility] Progress Note Normal [facility] US ABDOMEN COMPLETEon 2023 US ABDOMEN COMPLETE Normal [facility] US Abdomenon 07-05-2024 1. Status post cholecystectomy. No biliary ductal dilatation. 2. Mild hepatocellular disease. 3. Pancreas is obscured by overlying bowel gas and not well visualized or evaluated. Report Dictated on Electronically Signed By: Juan Jose Abreu MD Electronically Signed Date/Time: 07/05/2024 8:51 AM EDT [facility] Patient Name: WOODY NI : [...] Gallbladder/biliary: Status post cholecystectomy. As per the cardiovascular technologist, no sonographic Ortiz sign was present. [...] No significant ascites or other additional abnormality [facility] Lulu Abreu MD - 07/05/2024 [...] Gallbladder/biliary: Status post cholecystectomy. As per the cardiovascular technologist, no sonographic Ortiz sign was present. [...] Signed Date/Time: 07/05/2024 8:51 AM EDT [facility] Radiology Study observation (narrative) [facility] US AbdomenOrdered By: Lisandro Abreu on 07-05-2024 [facility] Work Phone: AMMONIAon 07-04-2024 Ammonia (P) [Moles/Vol] 17 umol/L Normal 9-30 [facility] Comment on above: Performed By: #### L [id number] ####Fur Comber: TRESSA SANTIZO ([phone])[facility] ([facility])[address] [place] [address] BETA HYDROXYBUTYRATEon 07-04 BETA HYDROXYBUTYRATE 20.30 mg/dL High 0.20-2.81 [facility] Comment on above: Performed By: #### L [id number], LAB99, [id number], LAB17, CAC231, LAB46 ####Fur Comber: ARA WRIGHT ([id number])[facility]ENTER[facility] [place] [facility] ([facility])[address] BLOOD GAS, VENOUS (SWR AND S HC)on 07-04-2024 BASE EXCESS (MMOL/L) IN VENOUS BLOOD -8.0 mmol/L Low -3.0-3.0 [facility] Comment on above: Performed By: #### L [id number] ####Fur Comber: ARA WRIGHT ([id number])[facility]ENTEROct[facility] [place] ([facility])[address] [place] [address] CARBON DIOXIDE (MM HG) IN VENOUS BLOOD 32 mm(Hg) Low 40-55 [facility] Comment on above: Performed By: #### L [id number] ####Fur Comber: ARA WRIGHT ([id number])[facility]ENTEROctavia [place] ([facility])[address] [place] [address] [place] OXYGEN (MM HG) IN VENOUS BLOOD 62 mm(Hg) Normal [facility] Comment on above: Performed By: #### L [id number] ####Fur Comber: ARA WRIGHT ([id number])[facility]ENTEROct[facility] [place] ([facility])[address] [place] [address] [place] OXYGEN SATURATION (%) IN VENOUS BLOOD 90.0 % High 60.0-80.0 [facility] Comment on above: Performed By: #### L [id number] ####Fur Comber: ARA WRIGHT ([id number])[facility]ENTEROct[facility] [place] ([facility])[address] [place] [address] BLOOD GAS, VENOUS (SWR AND S HC)Ordered By: Bhupinder Motta on 07-04-2024 CO2 [Moles/Vol] 18.0 mmol/L Low 24.0-28.0 [facility] Comment on above: Performed By: #### L [id number] ####Fur Comber: ARA WRIGHT ([id number])[facility] ([facility])[address] [place] [address] HCO3 (Bld) [Moles/Vol] 17.5 mmol/L Low 23.0-27.0 [facility] Comment on above: Performed By: #### L [id number] ####Fur Comber: ARA WRIGHT ([id number])[facility] CENTEROctavia GUSTAFSONTMAN (SWRLAB)[address] [place] [address] pH (Bld) 7.343 [pH] Normal 7.310-7.410 [facility] Comment on above: Performed By: #### L [id number] ####Fur Comber: ARA WRIGHT ([phone])[facility] CENTEROctavia GUSTAFSONTMAN (SWRLAB)[address] [place] [address] Source Of Oxygen Room Air Normal [facility] Comment on above: Performed By: #### L [id number] ####Fur Comber: ARA WRIGHT ([id number])[facility] CENTEROctavia GUSTAFSONTMAN (SWRLAB)[address] [place] [address] CBC W Auto Differential pane l (Bld)Ordered By: Diana Núñez on 07-04-2024 Basophils (Bld) [#/Vol] 0.1 10*3/uL 0.0 - 0.2 10*3/uL [facility] Basophils/100 WBC (Bld) 0.7 % 0.0 - 2.0 % [facility] Eosinophils (Bld) [#/Vol] 0.1 10*3/uL 0.0 - 0.5 10*3/uL [facility] Eosinophils/100 WBC (Bld) 1.5 % 0.0 - 6.0 % [facility] Erythrocyte distribution width (RBC) [Ratio] 12.8 % 11.5 - 15.0 % [facility] Hematocrit (Bld) [Volume fraction] 32.5 % Low 40.0 - 52.0 % [facility] Hemoglobin (Bld) [Mass/Vol] 11.7 g/dL Low 13.0 - 18.0 g/dL [facility] Immature granulocytes (Bld) [#/Vol] 0.0 10*3/uL NINF - 0.1 10*3/uL [facility] Immature granulocytes/100 WBC (Bld) 0.3 % 0.0 - 2.0 % [facility] Interpretation and review of laboratory results Abnormal [facility] Lymphocytes (Bld) [#/Vol] 2.5 10*3/uL 1.0 - 4.3 10*3/uL [facility] Lymphocytes/100 WBC (Bld) 26.3 % 15.0 - 45.0 % [facility] MCH (RBC) [Entitic mass] 30.5 pg 26.0 - 34.[address] [facility] MCHC (RBC) [Mass/Vol] 36.0 % 30.5 - 36.0 % [facility] MCV (RBC) [Entitic vol] 84.6 fL 77.0 - 99.[address] [facility] Monocytes (Bld) [#/Vol] 0.7 10*3/uL 0.0 - 0.9 10*3/uL [facility] Monocytes/100 WBC (Bld) 7.5 % 5.0 - 13.0 % [facility] Neutrophils (Bld) [#/Vol] 6.1 10*3/uL 1.8 - 7.5 10*3/uL [facility] Neutrophils/100 WBC (Bld) 63.7 % 38.0 - 82.0 % [facility] Nucleated RBC/100 WBC (Bld) [Ratio] 0.0 % [facility] Platelet mean volume (Bld) [Entitic vol] 8.9 fL Low 9.0 - 12.[address] [facility] Comment on above: MPV is a calculated measurement using platelet volume ratio Platelets (Bld) [#/Vol] 227 10*3/uL 140 - 440 10*3/uL [facility] RBC (Bld) [#/Vol] 3.84 10*6/uL Low 4.40 - 5.9 0 10*6/uL [facility] WBC (Bld) [#/Vol] 9.6 10*3/uL 3.6 - 10.7 10*3/uL [facility] CBC WITH AUTO DIFFERENTIALon 07-04-2024 Basophils (Bld) [#/Vol] 0.1 10*3/uL Normal 0.0-0.2 [facility] Comment on above: Performed By: #### L [id number] ####Fur Comber: ARA WRIGHT ([id number])[facility]ENTERA [place] RITTMAN (SWRLAB)[address] [place] [address] [place] Basophils/100 WBC (Bld) 0.7 % Normal 0.0-2.0 [facility] Comment on above: Performed By: #### L [id number] ####Fur Comber: ARA WRIGHT ([id number])[facility]ENTERA [place] RITTMAN (SWRLAB)[address] [place] [address] Eosinophils (Bld) [#/Vol] 0.1 10*3/uL Normal 0.0-0.5 [facility] Comment on above: Performed By: #### L [id number] ####Fur Comber: ARA WRIGHT ([phone])[facility]ENTERA [place] RITTMAN (SWRLAB)[address] [place] [address] Eosinophils/100 WBC (Bld) 1.5 % Normal 0.0-6.0 [facility] Comment on above: Performed By: #### L [id number] ####Fur Comber: ARA WRIGHT ([phone])[facility] CENTEROctavia LARADAKOTA RITTMAN (SWRLAB)[address] [place] [address] Erythrocyte distribution width (RBC) [Ratio] 12.8 % Normal 11.5-15.0 [facility] Comment on above: Performed By: #### L [id number] ####Fur Comber: ARA WRIGHT ([phone])[facility]ENTERA [place] RITTMAN (SWRLAB)[address] [place] [address] Hematocrit (Bld) [Volume fraction] 32.5 % Low 40.0-52.0 [facility] Comment on above: Performed By: #### L [id number] ####Fur Comber: ARA WRIGHT ([id number])HANNA DUNCAN RITTMAN (SWRLAB)[address] [place] [address] Hemoglobin (Bld) [Mass/Vol] 11.7 g/dL Low 13.0-18.0 [facility] Comment on above: Performed By: #### L [id number] ####Fur Comber: ARA WRIGHT ([id number])HANNA DUNC[place] RITTMAN (SWRLAB)[address] [place] [address] IMMATURE GRANS % 0.3 % Normal 0.0-2.0 [facility] Comment on above: Performed By: #### L [id number] ####Fur Comber: ARA WRIGHT ([id number])[facility]ENTEROctavia DUNCAN RITTMAN (SWRLAB)[address] [place] [address] IMMATURE GRANS ABSOLUTE 0.0 10*3/uL Normal <0.1 [facility] Comment on above: Performed By: #### L [id number] ####Fur Comber: ARA WRIGHT ([phone])[facility]ENTEROctavia DUNCAN RITTMAN (SWRLAB)[address] [place] [address] Lymphocytes (Bld) [#/Vol] 2.5 10*3/uL Normal 1.0-4.3 [facility] Comment on above: Performed By: #### L [id number] ####Fur Comber: ARA WRIGHT ([phone])[facility]ENTEROctavia DUNCAN RITTMAN (SWRLAB)[address] [place] [address] Lymphocytes/100 WBC (Bld) 26.3 % Normal 15.0-45.0 [facility] Comment on above: Performed By: #### L [id number] ####Fur Comber: ARA WRIGHT ([phone])[facility]ENTEROctavia DUNCAN RITTMAN (SWRLAB)[address] [place] [address] MCH (RBC) [Entitic mass] 30.5 pg Normal 26.0-34.0 [facility] Comment on above: Performed By: #### L [id number] ####Fur Comber: ARA WRIGHT ([id number])HANNA DUNCAN RITTMAN (SWRLAB)[address] [place] [address] MCHC 36.0 % Normal 30.5-36.0 [facility] Comment on above: Performed By: #### L [id number] ####Fur Comber: ARA WRIGHT ([id number])HANNA DUNCAN RITTMAN (SWRLAB)[address] [place] [address] MCV (RBC) [Entitic vol] 84.6 fL Normal 77.0-99.0 [facility] Comment on above: Performed By: #### L [id number] ####Fur Comber: ARA WRIGHT ([id number])HANNA DUNCAN RITTMAN (SWRLAB)[address] [place] [address] Monocytes (Bld) [#/Vol] 0.7 10*3/uL Normal 0.0-0.9 [facility] Comment on above: Performed By: #### L [id number] ####Fur Comber: ARA WRIGHT ([id number])HANNA DUNCAN RITTMAN (SWRLAB)[address] [place] [address] [place] Monocytes/100 WBC (Bld) 7.5 % Normal 5.0-13.0 [facility] Comment on above: Performed By: #### L [id number] ####Fur Comber: ARA WRIGHT ([id number])HANNA DUNCAN RITTMAN (SWRLAB)[address] [place] [address] [place] NEUTROPHILS ABSOLUTE 6.1 10*3/uL Normal 1.8-7.5 [facility] Comment on above: Performed By: #### L [id number] ####Fur Comber: ARA WRIGHT ([id number])HANNA DUNCAN RITTMAN (SWRLAB)[address] [place] [address] Neutrophils/100 WBC (Bld) 63.7 % Normal 38.0-82.0 [facility] Comment on above: Performed By: #### L [id number] ####Fur Comber: ARA WRIGHT ([id number])[facility]ENTEROctavia GUSTAFSONTMAN (SWRLAB)[address] [place] [address] NRBC 0.0 /100 WBCs Normal 0.0-2.0 [facility] Comment on above: Performed By: #### L [id number] ####Fur Comber: ARA WRIGHT ([id number])[facility]ENTEROctavia GUSTAFSONTMAN (SWRLAB)[address] [place] [address] Platelet mean volume (Bld) [Entitic vol] 8.9 fL Low 9.0-12.7 [facility] Comment on above: Result Comment: MPV is a calculated measurement using platelet volume ratio Performed By: #### L [id number] ####Fur Comber: ARA WRIGHT ([id number])[facility] CENTEROctavia GUSTAFSONTMAN (SWRLAB)[address] [place] [address] [place] Platelets (Bld) [#/Vol] 227 10*3/uL Normal 140-440 [facility] Comment on above: Performed By: #### L [id number] ####Fur Comber: ARA WRIGHT ([id number])[facility]ENTEROctavia DUNCAN RITTMAN (SWRLAB)[address] [place] [address] RBC (Bld) [#/Vol] 3.84 10*6/uL Low 4.40-5.90 [facility] Comment on above: Performed By: #### L [id number] ####Fur Comber: ARA WRIGHT ([id number])[facility] CENTEROctavia DUNCAN RITTMAN (SWRLAB)[address] [place] [address] [place] WBC (Bld) [#/Vol] 9.6 10*3/uL Normal 3.6-10.7 [facility] Comment on above: Performed By: #### L [id number] ####Fur Comber: ARA WRIGHT ([id number])HANNA DUNCAN RITTMAN (SWRLAB)[address] COMPREHENSIVE METABOLIC PANE Peter 07-04-2024 Albumin [Mass/Vol] 4.1 g/dL Normal 3.5-5.0 [facility] Comment on above: Performed By: #### L [id number], LAB99, LOW455, LAB17, RWI870, LAB46 ####Fur Comber: ARA WRIGHT ([id number])[facility] CENTEROctavia DUNCAN RITTMAN (SWRLAB)[address] ALP [Catalytic activity/Vol] 68 U/L Normal 38-126 [facility] Comment on above: Performed By: #### L [id number], LAB99, JSA188, LAB17, SDG803, LAB46 ####Fur Comber: ARA WRIGHT ([id number])[facility] CENTEROctavia DUNCAN RITTMAN (SWRLAB)[address] ALT [Catalytic activity/Vol] 17 U/L Normal 0-49 [facility] Comment on above: Performed By: #### L [id number], LAB99, GOT389, LAB17, JOI238, LAB46 ####Fur Comber: ARA WRIGHT ([id number])[facility] CENTEROctavia DUNCAN RITTMAN (SWRLAB)[address] [place] [address] Anion gap [Moles/Vol] 20 mmol/L High 3-13 [facility] Comment on above: Performed By: #### L [id number], LAB99, QMM952, LAB17, PGX030, LAB46 ####Fur Comber: ARA WRIGHT ([phone])[facility] CENTEROctavia DUNCAN RITTMAN (SWRLAB)[address] [place] [address] [place] AST [Catalytic activity/Vol] 38 U/L Normal 15-46 [facility] Comment on above: Performed By: #### L HC0291, LAB99, MJY559, LAB17, FPZ720, LAB46 ####Fur Comber: ARA WRIGHT ([id number])[facility] CENTEROctavia DUNCAN RITTMAN (SWRLAB)[address] [place], [place] [address] [place] Bilirubin [Mass/Vol] 0.8 mg/dL Normal 0.2-1.3 [facility] Comment on above: Performed By: #### L [id number], LAB99, AZX312, LAB17, IVH111, LAB46 ####Fur Comber: ARA WRIGHT ([id number])[facility] CENTEROctavia LARADAKOTA RITTMAN (SWRLAB)[address] Calcium [Mass/Vol] 8.8 mg/dL Normal 8.4-10.4 [facility] Comment on above: Performed By: #### L [id number], LAB99, XXP568, LAB17, KFP170, LAB46 ####Fur Comber: ARA WRIGHT ([id number])[facility]ENTERA [place] RITTMAN (SWRLAB)[address] [place] [address] [place] Chloride [Moles/Vol] 90 mmol/L Low 98-107 [facility] Comment on above: Performed By: #### L [id number], LAB99, GHX098, LAB17, KBT684, LAB46 ####Fur Comber: ARA WRIGHT ([id number])[facility] CENTEROctavia LARADAK[place] RITTMAN (SWRLAB)[address] [place] [address] [place] CO2 [Moles/Vol] 14 mmol/L Low 22-30 [facility] Comment on above: Performed By: #### L [id number], LAB99, HIS501, LAB17, TJQ958, LAB46 ####Fur Comber: ARA WRIGHT ([id number])[facility] CENTEROctavia DUNCAN RITTMAN (SWRLAB)[address] Creatinine [Mass/Vol] 1.33 mg/dL High 0.66-1.25 [facility] Comment on above: Performed By: #### L [id number], LAB99, QHF290, LAB17, YJC999, LAB46 ####Fur Comber: ARA WRIGHT ([id number])[facility] CENTEROctavia DUNCAN RITTMAN (SWRLAB)[address] GLOMERULAR FILTRATION RATE ML/MIN/1.73 SQ M.PREDICTED 59.7 mL/min/1.73m*2 Low >60.0 [facility] Comment on above: Result Comment: Calc ulation based on the Chronic Kidney Disease Epidemiology Collaboration (CKD-EPI) equation refit without adjustment for race Performed By: #### L WI0416, LAB99, IMN322, LAB17, QWO244, LAB46 ####Fur Comber: ARA WRIGHT ([id number])[facility] CENTEROctavia DUNCAN RITTMAN (SWRLAB)[address] Glucose [Mass/Vol] 86 mg/dL Normal 70-100 [facility] Comment on above: Performed By: #### L NY4585, LAB99, VIE561, LAB17, LZY787, LAB46 ####Fur Comber: ARA WRIGHT ([id number])[facility] CENTEROctavia DUNCAN RITTMAN (SWRLAB)[address] [place] [address] [place] Potassium [Moles/Vol] 2.7 mmol/L Low 3.5-5.1 [facility] Comment on above: Performed By: #### L [id number], LAB99, SLY063, LAB17, AWC214, LAB46 ####Fur Comber: ARA WRIGHT ([phone])[facility] CENTEROctavia DUNCAN RITTMAN (SWRLAB)[address] [place] [address] Protein [Mass/Vol] 6.6 g/dL Normal 6.3-8.2 [facility] Comment on above: Performed By: #### L PA7536, LAB99, VEA769, LAB17, DVI363, LAB46 ####Fur Comber: ARA WRIGHT ([id number])[facility] CENTEROctavia DUNCAN RITTMAN (SWRLAB)[address] [place] [address] [place] Sodium [Moles/Vol] 124 mmol/L Low 135-145 [facility] Comment on above: Performed By: #### L [id number], LAB99, ALE573, LAB17, DAW002, LAB46 ####Fur Comber: ARA WRIGHT ([id number])[facility] (SWRLAB)[address] [place] [address] Urea nitrogen [Mass/Vol] 18 mg/dL Normal 9-20 [facility] Comment on above: Performed By: #### L [id number], LAB99, ZCE002, LAB17, JKG438, LAB46 ####Fur Comber: ARA WRIGHT ([id number])[facility]AN (SWRLAB)[address] [place] [address] CT HEAD WO IV CONTRASTon CT HEAD WO IV CONTRAST Normal [facility] CT Head WO contraston 2023 No acute intracrania l abnormality. 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 Report Dictated on Electronically Signed By: Barbara Henriquez MD Electronically Signed Date/Time: 07/04/2024 6:28 PM EDT [facility] 1960 [id number] Exam Date/Time: 07/04/2024 18:06 Procedure: CT HEAD [...] Orbits: Normal Calvarium and skull base: Normal [facility] Barbara Henriquez M D - 07/04/2024 Patient Name: WOODY NI: 1960 [facility]#: [id number] Exam Date/Time: 07/04/2024 18:06 Procedure: CT HEAD [...] Signed Date/Time: 07/04/2024 6:28 PM EDT [facility] Radiology Study observation (narrative) [facility] CT Head WO contrastOrdered B y: Barbara Henriquez on 07-04-2024 [facility] Work Phone: Comprehensive metabolic 1998 panelon 07-04-2024 Albumin [Mass/Vol] 4.1 g/dL 3.5 - 5.0 g/dL [facility] ALP [Catalytic activity/Vol] 68 U/L 38 - 126 U/L [facility] ALT [Catalytic activity/Vol] 17 U/L 0 - 49 U/L [facility] Anion gap [Moles/Vol] 20 mmol/L High 3 - 13 mmol/L [facility] AST [Catalytic activity/Vol] 38 U/L 15 - 46 U/L [facility] Bilirubin [Mass/Vol] 0.8 mg/dL 0.2 - 1 .3 mg/dL [facility] Calcium [Mass/Vol] 8.8 mg/dL 8.4 - 10. 4 mg/dL [facility] Chloride [Moles/Vol] 90 mmol/L Low 98 - 10 7 mmol/L [facility] CO2 [Moles/Vol] 14 mmol/L Low 22 - 30 mmol/L [facility] Creatinine [Mass/Vol] 1.33 mg/dL High 0.66 - 1.25 mg/dL [facility] GFR/1.73 sq M.predicted (S/P/Bld) [Vol rate/Area] 59.7 mL/min Low - PINF [facility] Comment on above: Calculation based on the Chronic Kidney Disease Epidemiology Collaboration (CKD-EPI) equation refit without adjustment for race Glucose [Mass/Vol] 86 mg/dL 70 - 100 mg/dL [facility] Potassium [Moles/Vol] 2.7 mmol/L Low 3.5 - 5.1 mmol/L [facility] Protein [Mass/Vol] 6.6 g/dL 6.3 - 8.2 g/dL [facility] Sodium [Moles/Vol] 124 mmol/L Low 135 - 145 mmol/L [facility] Urea nitrogen [Mass/Vol] 18 mg/dL 9 - 20 mg/dL [facility] ECG 12-LEADon 07-04-2024 ECG 12-LEAD IMPRESSION: Sinus rhythm RBBB and LAFB Electronically Signed On 07-04-2024 17:44:57 EDT by Ashley Bell Normal [facility] ED Nursing Noteon 07-04-2024 ED Nursing Note Report to Diana BRODERICK [address] [place] [address]. Pt signed transfer consent. Emilee Gonzalez RN 07/04/[address] [facility] ED Nursing Note Attempted to call re port to W. On hold x 6 min. Will try again Emilee Gonzalez RN 07/04/24 2210 Normal [facility] ED Nursing Note Pt to [facility] via [facility]. Pt a&ox4. VSS at transfer [facility] ED Nursing Note Normal [facility] ED Provider Noteon ED Provider Note Normal [facility] ETHANOLon 07-04-2024 ETHANOL IN SER/PLAS 0.032 g/dL High 0.000-0.010 [facility] Comment on above: Result Comment: ORDE R COMMENTS:NOTE: This result is for medical treatment only. Analysis performed using non-forensic procedures. Performed By: #### L [id number], LAB99, SEM269, LAB17, ZMQ876, LAB46 ####Fur Comber: ARA WRIGHT ([id number])[facility] CENTEROctavia CEDENO (SWRLAB)[address] [place] [address] Ethanol (Bld) [Mass/Vol]on 0 07-04-2024 Ethanol [Mass/Vol] 0.032 g/dL High 0.000 - 0.010 g/dL [facility] LACTIC ACID WITH REFLEXon Lactate [Moles/Vol] 0.6 mmol/L Low 0.7-2.0 [facility] Comment on above: Performed By: #### L [id number] ####Fur Comber: ARA WRIGHT ([id number])[facility] CENTEROctavia CEDENO (SWRLAB)[address] [place] [address] Lactate [Moles/Vol] 2.6 mmol/L High 0.7-2.0 [facility] Comment on above: Performed By: #### L [id number] ####Fur Comber: ARA WRIGHT ([phone])[facility] CENTEROctavia CEDENO (RLAB)[address] [place] [address] LIPASEon 07-04-2024 Lipase [Catalytic activity/Vol] 133 U/L Normal 23-300 [facility] Comment on above: Performed By: #### L [id number], LAB99, GSA199, LAB17, VCA050, LAB46 ####Fur Comber: ARA WRIGHT ([id number])[facility] CENTEROctavia CEDENO (RLAB)[address] [place] [address] Laboratory - Chemistry and C hemistry - challengeon 07-04-2024 Lactate [Moles/Vol] 0.6 mmol/L Low 0.7 - 2. 0 mmol/L [facility] Ammonia (P) [Moles/Vol] 17 umol/L 9 - 30 umol/L [facility] Magnesium [Mass/Vol] 1.5 mg/dL Low 1.6 - 2 .3 mg/dL [facility] Troponin I.cardiac [Mass/Vol] 0.026 ng/mL NINF - 0.034 ng/mL [facility] Beta hydroxybutyrate [Mass/Vol] 20.30 mg/dL High 0.20 - 2.81 mg/dL [facility] Lactate [Moles/Vol] 2.6 mmol/L High 0.7 - 2. 0 mmol/L [facility] Lipase [Catalytic activity/Vol] 133 U/L 23 - 300 U/L [facility] Laboratory - Chemistry and C hemistry - challengeOrdered By: Bhupinder Motta on 07-04-2024 Oxygen (Bld) [Partial pressure] 62 mm[Hg] mm(Hg) [facility] Laboratory - Coagulationon 0 07-04-2024 PT Coag (Bld) [Time] 12.4 s High 9.0 - 12.0 s [facility] Laboratory - Microbiology an d Antimicrobial susceptibilityon 07-04-2024 FLUAV RNA SHANE+probe Ql (Resp) Not detected Not Detected [facility] FLUBV RNA SHANE+probe Ql (Resp) Not detected Not Detected [facility] RSV RNA SHANE+probe Ql (Resp) Not detected Not Detected [facility] SARS-CoV-2 (COVID-19) RNA SHANE+probe Ql (Resp) Not detected Not Detected [facility] SARS-CoV-2 (COVID-19) RNA SHANE+probe Ql (Unsp spec) Methodology: real-time, RT-PCR The SARS-CoV-2, Flu A/B, and RSV Combo assay is intended for in vitro diagnostic use under the FDA Emergency Use Authorization (EUA). This test has not been FDA cleared or approved. In compliance with this authorization, please visit www.fda.gov/media/991387/ download or www.fda.gov/media/330725/ download to access the applicable information sheets. [facility] Lipase [Catalytic activity/V ol]on 07-04-2024 Interpretation and review of laboratory results Normal [facility] MAGNESIUMon 07-04-2024 Magnesium [Mass/Vol] 1.5 mg/dL Low 1.6-2.3 [facility] Comment on above: Performed By: #### L [id number], LAB99, FBM351, LAB17, RQJ772, LAB46 ####Fur Comber: ARA WRIGHT ([id number])[facility] HOSPITALMARILYN (SWRLAB)[address] [place] [address] [place] Magnesium [Mass/Vol]on 07-04 Interpretation and review of laboratory results Abnormal [facility] No Panel Informationon 07-04 Interpretation and review of laboratory results Abnormal [facility] Interpretation and review of laboratory results Normal [facility] Interpretation and review of laboratory results Abnormal [facility] Interpretation and review of laboratory results Abnormal [facility] Interpretation and review of laboratory results Abnormal [facility] Heart Rate [address] [facility] P [place] [address] [facility] LA Interval [address] [facility] QRS [place] -[address] [facility] QRSD Interval [address] [facility] QT Interval [address] [facility] QTC Interval [address] [facility] T Wave [place] [address] [facility] Sinus rhythm RBBB and LAFB Electronically Signed On 07-04-2024 17:44:57 EDT by Ashley Bell Ashley Hilliard MD - 07/04/2024 IMPRESSION: Sinus rhythm RBBB and LAFB Electronically Signed On 07-04-2024 17:44:57 EDT by Ashley Bell [facility] No Panel InformationOrdered By: Bhupinder Motta on 07-04-2024 BASE EXCESS -8.0 mmol/L Low -3.0 - 3.0 mmol/L [facility] pCO2 [address] [facility] PROTHROMBIN TIMEon INR Coag (PPP) [Relative time] 1.1 {INR} Normal 0.9-1.1 [facility] Comment on above: Result Comment: Fantasma mmended [...] Myocardial Infarction Performed By: #### L [id number] ####Fur Comber: ARA WRIGHT ([id number])[facility]SW[facility] [place] [address] PT Coag (PPP) [Time] 12.4 s High 9.0-12.0 [facility] Comment on above: Performed By: #### L [id number] ####Fur Comber: ARA WRIGHT ([phone])[facility] (SWRLAB)[address] [place] [address] PT Coag (Bld) [Time]on 07-04 INR Coag (PPP) [Relative time] 1.1 {INR} 0.9 - 1.[address] [facility] Comment on above: Recommended Anticoag ulant [...] (COVID-19) RNA SHANE+probe Ql (Unsp spec) Normal [facility] Comment on above: Performed By: #### L [id number] ####Fur Comber: ARA WRIGHT ([id number])[facility] SIMMONSAN (SWRLAB)[address] [place] [address] SARS-CoV-2, Flu A/B, and RSV Comboon 07-04-2024 Interpretation and review of laboratory results Normal [facility] TROPONIN Ion 07-04-2024 Troponin I.cardiac [Mass/Vol] 0.026 ng/mL Normal <0.034 [facility] Comment on above: Result Comment: CLAIRE Rivera COMMENTS:Patients with high levels of Biotin oral intake (ie >5 mg/day) may have falsely decreased Troponin levels. Performed By: #### L [id number], LAB99, YQJ999, LAB17, KRL492, LAB46 ####Fur Comber: ARA WRIGHT ([id number])[facility] (RLAB)[address] [place] [address] Troponin I.cardiac [Mass/Vol ]on 07-04-2024 Interpretation and review of laboratory results Normal [facility] Patients with high l evels of Biotin oral intake (ie >5 mg/day) may have falsely decreased Troponin levels. [facility] Vital signsOrdered By: Bhupinder Motta on 07-04-2024 Oxygen saturation in Blood 90.0 % High 60.0 - 80.0 % [facility] XR Chest Single viewon 07-04 No acute cardiopulmonary disease. Report Dictated on Electronically Signed By: Marjan Ruth MD Electronically Signed Date/Time: 07/04/2024 6:00 PM EDT [facility] 1960 [id number] Exam Date/Time: 07/04/2024 17:52 Procedure: XR CHEST [...] spine and shoulders. No acute osseous findings. [facility] Marjan Ruth MD - 07/04/2024 Patient Name: [...] Electronically Signed Date/Time: 07/04/2024 6:00 PM EDT [facility] Study observation (narrative) [facility] XR Chest Single viewOrdered By: Marjan Ruth on 07-04-2024 [facility] Work Phone: Basic Metabolic Profile (BMP )on 06-06-2024 BUN/CRE 11.8 RATIO Normal 10-20 [facility] Comment on above: Order Comment: 306.1 Performed By: #### L 500.2500, L100.0100, L501.5200 #### [facility] [address] [place], [address] CA,Total 8.9 mg/dL Normal 8.5-10.1 [facility] Comment on above: Order Comment: 306.1 Performed By: #### L 500.2500, L100.0100, L501.5200 #### [facility] [address] [place], [address] Chloride [Moles/Vol] 99 mmol/L Normal 98-107 [facility] Comment on above: Order Comment: 306.1 Performed By: #### L 500.2500, L100.0100, L501.5200 #### [facility] [address] [place], [address] CO2 [Moles/Vol] 27.0 mmol/L Normal 21.0-32.0 [facility] Comment on above: Order Comment: 306.1 Performed By: #### L 500.2500, L100.0100, L501.5200 #### [facility] [address] [place], [address] Creatinine [Mass/Vol] 1.02 mg/dL Normal 0.70-1.30 [facility] Comment on above: Order Comment: 306.1 Result Comment: The validity of the calculated GFR GFRAA in patients over 70 years has not been determined. Clinical correlation is essential. Performed By: #### L 500.2500, L100.0100, L501.5200 #### [facility] [address] [place], [address] EST GFR - AA 95 mL/min Normal >60 [facility] Comment on above: Order Comment: 306.1 Result Comment: Afri can Jamaican GFR Calc Performed By: #### L 500.2500, L100.0100, L501.5200 #### [facility] [address] [place], [address] GAP 6 Normal 5-15 [facility] Comment on above: Order Comment: 306.1 Performed By: #### L 500.2500, L100.0100, L501.5200 #### [facility] [address] [place], [address] GFR/1.73 sq M.predicted among non-blacks MDRD (S/P/Bld) [Vol rate/Area] 78 mL/min/{1.73_m2} Normal >60 [facility] Comment on above: Order Comment: 306.1 Result Comment: Non- GFR Calc Performed By: #### L 500.2500, L100.0100, L501.5200 #### [facility] [address] [place], [address] Glucose [Mass/Vol] 93 mg/dL Normal 74-106 [facility] Comment on above: Order Comment: 306.1 Performed By: #### L 500.2500, L100.0100, L501.5200 #### [facility] [address] [place], [address] Potassium [Moles/Vol] 3.9 mmol/L Normal 3.5-5.1 [facility] Comment on above: Order Comment: 306.1 Performed By: #### L 500.2500, L100.0100, L501.5200 #### [facility] [address] [place], [address] Sodium [Moles/Vol] 132 mmol/L Low 136-145 [facility] Comment on above: Order Comment: 306.1 Performed By: #### L 500.2500, L100.0100, L501.5200 #### [facility] [address] [place], [address] Urea nitrogen [Mass/Vol] 12 mg/dL Normal 7-18 [facility] Comment on above: Order Comment: 306.1 Performed By: #### L 500.2500, L100.0100, L501.5200 #### [facility] [address] [place], [address] CBC W/Diff, Automatedon 08 Absolute Lymph 1.55 X10 3/uL Normal 0.83-4.51 [facility] Comment on above: Order Comment: 306.1 Performed By: #### L 500.2500, L100.0100, L501.5200 #### [facility] [address] [place], [address] Absolute Neut 2.6 X10 3/uL Normal 2.0-7.7 [facility] Comment on above: Order Comment: 306.1 Performed By: #### L 500.2500, L100.0100, L501.5200 #### [facility] [address] [place], [address] Basophils/100 WBC (Bld) 1.5 % High 0-1 [facility] Comment on above: Order Comment: 306.1 Performed By: #### L 500.2500, L100.0100, L501.5200 #### [facility] [address] [place], [address] Eosinophils/100 WBC (Bld) 4.2 % Normal 0-5 [facility] Comment on above: Order Comment: 306.1 Performed By: #### L 500.2500, L100.0100, L501.5200 #### [facility] [address] [place], [address] Erythrocyte distribution width (RBC) [Ratio] 15.0 % High 11.6-14.6 [facility] Comment on above: Order Comment: 306.1 Performed By: #### L 500.2500, L100.0100, L501.5200 #### [facility] [address] [place], [address] Hematocrit (Bld) [Volume fraction] 31.4 % Low 40-54 [facility] Comment on above: Order Comment: 306.1 Performed By: #### L 500.2500, L100.0100, L501.5200 #### [facility] [address] [place], [address] Hemoglobin (Bld) [Mass/Vol] 10.2 g/dL Low 13.0-16.5 [facility] Comment on above: Order Comment: 306.1 Performed By: #### L 500.2500, L100.0100, L501.5200 #### [facility] [address] [place], [address] IG% 0.600 Normal 0.0-0.9 [facility] Comment on above: Order Comment: 306.1 Result Comment: IG% - Immature Granulocytes (promyelocytes, myelocytes and metamyelocytes) > 1% indicates that a LEFT SHIFT is Present. Performed By: #### L 500.2500, L100.0100, L501.5200 #### [facility] [address] [place], [address] Lymphocytes/100 WBC (Bld) 32.2 % Normal 19-41 [facility] Comment on above: Order Comment: 306.1 Performed By: #### L 500.2500, L100.0100, L501.5200 #### [facility] [address] [place], [address] MCH (RBC) [Entitic mass] 31.2 pg Normal 27.0-32.0 [facility] Comment on above: Order Comment: 306.1 Performed By: #### L 500.2500, L100.0100, L501.5200 #### [facility] [address] [place], [address] MCHC (RBC) [Mass/Vol] 32.5 g/dL Normal 32-36 [facility] Comment on above: Order Comment: 306.1 Performed By: #### L 500.2500, L100.0100, L501.5200 #### [facility] [address] [place], [address] MCV (RBC) [Entitic vol] 96.0 fL High 80-94 [facility] Comment on above: Order Comment: 306.1 Performed By: #### L 500.2500, L100.0100, L501.5200 #### [facility] [address] [place], [address] Monocytes/100 WBC (Bld) 7.9 % Normal 0-10 [facility] Comment on above: Order Comment: 306.1 Performed By: #### L 500.2500, L100.0100, L501.5200 #### [facility] [address] [place], [address] Neutrophils/100 WBC (Bld) 53.6 % Normal 47-70 [facility] Comment on above: Order Comment: 306.1 Performed By: #### L 500.2500, L100.0100, L501.5200 #### [facility] [address] [place], [address] Nucleated RBC (Bld) [#/Vol] 0 10*3/uL Normal 0-5 [facility] Comment on above: Order Comment: 306.1 Performed By: #### L 500.2500, L100.0100, L501.5200 #### [facility] [address] [place], [address] Platelet mean volume (Bld) [Entitic vol] 9.7 fL Normal 6.2-12.0 [facility] Comment on above: Order Comment: 306.1 Performed By: #### L 500.2500, L100.0100, L501.5200 #### [facility] [address] [place], [address] Platelets (Bld) [#/Vol] 242 10*3/uL Normal 150-450 [facility] Comment on above: Order Comment: 306.1 Performed By: #### L 500.2500, L100.0100, L501.5200 #### [facility] [address] [place], [address] RBC (Bld) [#/Vol] 3.27 10*6/uL Low 4.6-6.2 [facility] Comment on above: Order Comment: 306.1 Performed By: #### L 500.2500, L100.0100, L501.5200 #### [facility] [address] [place], [address] RDW SD 52.6 fl High 35.1-43.9 [facility] Comment on above: Order Comment: 306.1 Performed By: #### L 500.2500, L100.0100, L501.5200 #### [facility] [address] [place], [address] WBC (Bld) [#/Vol] 4.8 10*3/uL Normal 4.4-11.0 [facility] Comment on above: Order Comment: 306.1 Performed By: #### L 500.2500, L100.0100, L501.5200 #### [facility] [address] [place], [address] Magnesiumon 06-06-2024 Magnesium [Mass/Vol] 1.5 mg/dL Low 1.6-2.6 [facility] Comment on above: Order Comment: 306.1 Performed By: #### L 500.2500, L100.0100, L501.5200 #### [facility] [address] [place], [address] Basic Metabolic Profile (BMP )on 05-30-2024 BUN/CRE 12.1 RATIO Normal 10-20 [facility] Comment on above: Performed By: #### L 501.5300, L501.5200 #### [facility] [address] [place], [address] CA,Total 8.4 mg/dL Low 8.5-10.1 [facility] Comment on above: Performed By: #### L 501.5300, L501.5200 #### [facility] [address] [place], [address] Chloride [Moles/Vol] 98 mmol/L Normal 98-107 [facility] Comment on above: Performed By: #### L 501.5300, L501.5200 #### [facility] [address] [place], [address] CO2 [Moles/Vol] 24.0 mmol/L Normal 21.0-32.0 [facility] Comment on above: Performed By: #### L 501.5300, L501.5200 #### [facility] [address] [place], [address] Creatinine [Mass/Vol] 1.07 mg/dL Normal 0.70-1.30 [facility] Comment on above: Result Comment: The validity of the calculated GFR GFRAA in patients over 70 years has not been determined. Clinical correlation is essential. Performed By: #### L 501.5300, L501.5200 #### [facility] [address] [place], [address] EST GFR - AA 89 mL/min Normal >60 [facility] Comment on above: Result Comment: Afri can Jamaican GFR Calc Performed By: #### L 501.5300, L501.5200 #### [facility] [address] [place], [address] GAP 8 Normal 5-15 [facility] Comment on above: Performed By: #### L 501.5300, L501.5200 #### [facility] [address] [place], [address] GFR/1.73 sq M.predicted among non-blacks MDRD (S/P/Bld) [Vol rate/Area] 74 mL/min/{1.73_m2} Normal >60 [facility] Comment on above: Result Comment: Non- GFR Calc Performed By: #### L 501.5300, L501.5200 #### [facility] [address] [place], [address] Glucose [Mass/Vol] 119 mg/dL High 74-106 [facility] Comment on above: Result Comment: Fast ing Glucose result from 100 to 125 mg/dL suggests IMPAIRED HOMEOSTASIS per A.D.A. criteria. Performed By: #### L 501.5300, L501.5200 #### [facility] [address] [place], [address] Potassium [Moles/Vol] 3.9 mmol/L Normal 3.5-5.1 [facility] Comment on above: Performed By: #### L 501.5300, L501.5200 #### [facility] [address] [place], [address] Sodium [Moles/Vol] 130 mmol/L Low 136-145 [facility] Comment on above: Performed By: #### L 501.5300, L501.5200 #### [facility] [address] [place], [address] Urea nitrogen [Mass/Vol] 13 mg/dL Normal 7-18 [facility] Comment on above: Performed By: #### L 501.5300, L501.5200 #### [facility] [address] [place], [address] CBC W/Diff, Automatedon 05-19-2023 Absolute Lymph 1.36 X10 3/uL Normal 0.83-4.51 [facility] Comment on above: Performed By: #### L 501.5300, L501.5200 #### [facility] [address] [place], [address] Absolute Neut 1.6 X10 3/uL Low 2.0-7.7 [facility] Comment on above: Performed By: #### L 501.5300, L501.5200 #### [facility] [address] [place], [address] Basophils/100 WBC (Bld) 0.8 % Normal 0-1 [facility] Comment on above: Performed By: #### L 501.5300, L501.5200 #### [facility] [address] [place], [address] Eosinophils/100 WBC (Bld) 1.9 % Normal 0-5 [facility] Comment on above: Performed By: #### L 501.5300, L501.5200 #### [facility] [address] [place], [address] Erythrocyte distribution width (RBC) [Ratio] 15.3 % High 11.6-14.6 [facility] Comment on above: Performed By: #### L 501.5300, L501.5200 #### [facility] [address] [place], [address] Hematocrit (Bld) [Volume fraction] 28.3 % Low 40-54 [facility] Comment on above: Performed By: #### L 501.5300, L501.5200 #### [facility] [address] [place], [address] Hemoglobin (Bld) [Mass/Vol] 9.2 g/dL Low 13.0-16.5 [facility] Comment on above: Performed By: #### L 501.5300, L501.5200 #### [facility] [address] [place], [address] IG% 0.600 Normal 0.0-0.9 [facility] Comment on above: Result Comment: IG% - Immature Granulocytes (promyelocytes, myelocytes and metamyelocytes) > 1% indicates that a LEFT SHIFT is Present. Performed By: #### L 501.5300, L501.5200 #### [facility] [address] [place], [address] Lymphocytes/100 WBC (Bld) 37.8 % Normal 19-41 [facility] Comment on above: Performed By: #### L 501.5300, L501.5200 #### [facility] [address] [place], [address] MCH (RBC) [Entitic mass] 31.0 pg Normal 27.0-32.0 [facility] Comment on above: Performed By: #### L 501.5300, L501.5200 #### [facility] [address] [place], [address] MCHC (RBC) [Mass/Vol] 32.5 g/dL Normal 32-36 [facility] Comment on above: Performed By: #### L 501.5300, L501.5200 #### [facility] [address] [place], [address] MCV (RBC) [Entitic vol] 95.3 fL High 80-94 [facility] Comment on above: Performed By: #### L 501.5300, L501.5200 #### [facility] [address] [place], [address] Monocytes/100 WBC (Bld) 14.4 % High 0-10 [facility] Comment on above: Performed By: #### L 501.5300, L501.5200 #### [facility] [address] [place], [address] Neutrophils/100 WBC (Bld) 44.5 % Low 47-70 [facility] Comment on above: Performed By: #### L 501.5300, L501.5200 #### [facility] [address] [place], [address] Nucleated RBC (Bld) [#/Vol] 0 10*3/uL Normal 0-5 [facility] Comment on above: Performed By: #### L 501.5300, L501.5200 #### [facility] [address] [place], [address] Platelet mean volume (Bld) [Entitic vol] 10.0 fL Normal 6.2-12.0 [facility] Comment on above: Performed By: #### L 501.5300, L501.5200 #### [facility] [address] [place], [address] Platelets (Bld) [#/Vol] 125 10*3/uL Low 150-450 [facility] Comment on above: Performed By: #### L 501.5300, L501.5200 #### [facility] [address] [place], [address] RBC (Bld) [#/Vol] 2.97 10*6/uL Low 4.6-6.2 [facility] Comment on above: Performed By: #### L 501.5300, L501.5200 #### [facility] [address] [place], [address] RDW SD 53.9 fl High 35.1-43.9 [facility] Comment on above: Performed By: #### L 501.5300, L501.5200 #### [facility] [address] [place], [address] WBC (Bld) [#/Vol] 3.6 10*3/uL Low 4.4-11.0 [facility] Comment on above: Performed By: #### L 501.5300, L501.5200 #### [facility] [address] [place], [address] Magnesiumon 05-30-2024 Magnesium [Mass/Vol] 1.2 mg/dL Low 1.6-2.6 [facility] Comment on above: Performed By: #### L 501.5300, L501.5200 #### [facility] [address] [place], [address] Basic Metabolic Profile (BMP )on 05-27-2024 BUN/CRE 7.5 RATIO Low 10-20 [facility] Comment on above: Order Comment: 306-1 Performed By: #### L 505.5000, L501.9100, L500.4050, L100.0100, L300.3900 #### [facility] [address] [place], [address] CA,Total 8.5 mg/dL Normal 8.5-10.1 [facility] Comment on above: Order Comment: 306-1 Performed By: #### L 505.5000, L501.9100, L500.4050, L100.0100, L300.3900 #### [facility] [address] [place], [address] Chloride [Moles/Vol] 95 mmol/L Low 98-107 [facility] Comment on above: Order Comment: 306-1 Performed By: #### L 505.5000, L501.9100, L500.4050, L100.0100, L300.3900 #### [facility] [address] [place], [address] CO2 [Moles/Vol] 27.0 mmol/L Normal 21.0-32.0 [facility] Comment on above: Order Comment: 306- Performed By: #### L 505.5000, L501.9100, L500.4050, L100.0100, L300.3900 #### [facility] [address] [place], [address] Creatinine [Mass/Vol] 1.33 mg/dL High 0.70-1.30 [facility] Comment on above: Order Comment: 306- Result Comment: The validity of the calculated GFR GFRAA in patients over 70 years has not been determined. Clinical correlation is essential. Performed By: #### L 505.5000, L501.9100, L500.4050, L100.0100, L300.3900 #### [facility] [address] [place], [address] EST GFR - AA 70 mL/min Normal >60 [facility] Comment on above: Order Comment: 306- Result Comment: Afri can Jamaican GFR Calc Performed By: #### L 505.5000, L501.9100, L500.4050, L100.0100, L300.3900 #### [facility] [address] [place], [address] GAP 8 Normal 5-15 [facility] Comment on above: Order Comment: 306- Performed By: #### L 505.5000, L501.9100, L500.4050, L100.0100, L300.3900 #### [facility] [address] [place], [address] GFR/1.73 sq M.predicted among non-blacks MDRD (S/P/Bld) [Vol rate/Area] 58 mL/min/{1.73_m2} Low >60 [facility] Comment on above: Order Comment: 306-1 Result Comment: Non- GFR Calc Performed By: #### L 505.5000, L501.9100, L500.4050, L100.0100, L300.3900 #### [facility] [address] [place], [address] Glucose [Mass/Vol] 85 mg/dL Normal 74-106 [facility] Comment on above: Order Comment: 306-1 Performed By: #### L 505.5000, L501.9100, L500.4050, L100.0100, L300.3900 #### [facility] [address] [place], [address] Potassium [Moles/Vol] 3.9 mmol/L Normal 3.5-5.1 [facility] Comment on above: Order Comment: 306-1 Performed By: #### L 505.5000, L501.9100, L500.4050, L100.0100, L300.3900 #### [facility] [address] [place], [address] Sodium [Moles/Vol] 130 mmol/L Low 136-145 [facility] Comment on above: Order Comment: 306-1 Performed By: #### L 505.5000, L501.9100, L500.4050, L100.0100, L300.3900 #### [facility] [address] [place], [address] Urea nitrogen [Mass/Vol] 10 mg/dL Normal 7-18 [facility] Comment on above: Order Comment: 306-1 Performed By: #### L 505.5000, L501.9100, L500.4050, L100.0100, L300.3900 #### [facility] [address] [place], [address] CBC W/Diff, Automatedon 08-0 9-2024 Absolute Lymph 1.55 X10 3/uL Normal 0.83-4.51 [facility] Comment on above: Order Comment: 306-1 Performed By: #### L 505.5000, L501.9100, L500.4050, L100.0100, L300.3900 #### [facility] [address] [place], [address] Absolute Neut 1.8 X10 3/uL Low 2.0-7.7 [facility] Comment on above: Order Comment: 306-1 Performed By: #### L 505.5000, L501.9100, L500.4050, L100.0100, L300.3900 #### [facility] [address] [place], [address] Basophils/100 WBC (Bld) 0.7 % Normal 0-1 [facility] Comment on above: Order Comment: 306-1 Performed By: #### L 505.5000, L501.9100, L500.4050, L100.0100, L300.3900 #### [facility] [address] [place], [address] Eosinophils/100 WBC (Bld) 2.9 % Normal 0-5 [facility] Comment on above: Order Comment: 306-1 Performed By: #### L 505.5000, L501.9100, L500.4050, L100.0100, L300.3900 #### [facility] [address] [place], [address] Erythrocyte distribution width (RBC) [Ratio] 15.0 % High 11.6-14.6 [facility] Comment on above: Order Comment: 306-1 Performed By: #### L 505.5000, L501.9100, L500.4050, L100.0100, L300.3900 #### [facility] [address] [place], [address] Hematocrit (Bld) [Volume fraction] 28.8 % Low 40-54 [facility] Comment on above: Order Comment: 306-1 Performed By: #### L 505.5000, L501.9100, L500.4050, L100.0100, L300.3900 #### [facility] [address] [place], [address] Hemoglobin (Bld) [Mass/Vol] 9.6 g/dL Low 13.0-16.5 [facility] Comment on above: Order Comment: 306-1 Performed By: #### L 505.5000, L501.9100, L500.4050, L100.0100, L300.3900 #### [facility] [address] [place], [address] IG% 0.700 Normal 0.0-0.9 [facility] Comment on above: Order Comment: 306-1 Result Comment: IG% - Immature Granulocytes (promyelocytes, myelocytes and metamyelocytes) > 1% indicates that a LEFT SHIFT is Present. Performed By: #### L 505.5000, L501.9100, L500.4050, L100.0100, L300.3900 #### [facility] [address], [address] Lymphocytes/100 WBC (Bld) 37.8 % Normal 19-41 [facility] Comment on above: Order Comment: 306-1 Performed By: #### L 505.5000, L501.9100, L500.4050, L100.0100, L300.3900 #### [facility] [address] [place], [address] MCH (RBC) [Entitic mass] 31.1 pg Normal 27.0-32.0 [facility] Comment on above: Order Comment: 306-1 Performed By: #### L 505.5000, L501.9100, L500.4050, L100.0100, L300.3900 #### [facility] [address] [place], [address] MCHC (RBC) [Mass/Vol] 33.3 g/dL Normal 32-36 [facility] Comment on above: Order Comment: 306-1 Performed By: #### L 505.5000, L501.9100, L500.4050, L100.0100, L300.3900 #### [facility] [address] [place], [address] MCV (RBC) [Entitic vol] 93.2 fL Normal 80-94 [facility] Comment on above: Order Comment: 306-1 Performed By: #### L 505.5000, L501.9100, L500.4050, L100.0100, L300.3900 #### [facility] [address] [place], [address] Monocytes/100 WBC (Bld) 15.1 % High 0-10 [facility] Comment on above: Order Comment: 306-1 Performed By: #### L 505.5000, L501.9100, L500.4050, L100.0100, L300.3900 #### [facility] [address] [place], [address] Neutrophils/100 WBC (Bld) 42.8 % Low 47-70 [facility] Comment on above: Order Comment: 306-1 Performed By: #### L 505.5000, L501.9100, L500.4050, L100.0100, L300.3900 #### [facility] [address] [place], [address] Nucleated RBC (Bld) [#/Vol] 0 10*3/uL Normal 0-5 [facility] Comment on above: Order Comment: 306-1 Performed By: #### L 505.5000, L501.9100, L500.4050, L100.0100, L300.3900 #### [facility] [address] [place], [address] Platelet mean volume (Bld) [Entitic vol] 10.7 fL Normal 6.2-12.0 [facility] Comment on above: Order Comment: 306-1 Performed By: #### L 505.5000, L501.9100, L500.4050, L100.0100, L300.3900 #### [facility] [address] [place], [address] Platelets (Bld) [#/Vol] 69 10*3/uL Low 150-450 [facility] Comment on above: Order Comment: 306-1 Performed By: #### L 505.5000, L501.9100, L500.4050, L100.0100, L300.3900 #### [facility] [address] [place], [address] RBC (Bld) [#/Vol] 3.09 10*6/uL Low 4.6-6.2 [facility] Comment on above: Order Comment: 306-1 Performed By: #### L 505.5000, L501.9100, L500.4050, L100.0100, L300.3900 #### [facility] [address] [place], [address] RDW SD 51.8 fl High 35.1-43.9 [facility] Comment on above: Order Comment: 306-1 Performed By: #### L 505.5000, L501.9100, L500.4050, L100.0100, L300.3900 #### [facility] [address] [place], [address] WBC (Bld) [#/Vol] 4.1 10*3/uL Low 4.4-11.0 [facility] Comment on above: Order Comment: 306-1 Performed By: #### L 505.5000, L501.9100, L500.4050, L100.0100, L300.3900 #### [facility] [address] [place], [place], [id number] Magnesiumon 05-27-2024 Magnesium [Mass/Vol] 0.8 mg/dL Invalid Interpretation Code 1.6-2.6 [facility] Comment on above: Order Comment: 306 Result Comment: Crit ical Result(s) Called at: 08:22:29 05/27/2024 by: JONNY Moraes. Results read back by same. Performed By: #### L 505.5000, L501.9100, L500.4050, L100.0100, L300.3900 #### [facility] [address] [place], [address] Thyroid Stim Hormone (TSH)on 05-27-2024 TSH 6.41 uIU/mL High 0.358-3.74 [facility] Comment on above: Order Comment: Performed By: #### L 505.5000, L501.9100, L500.4050, L100.0100, L300.3900 #### [facility] [address] [place], [address] Vitamin B12on 05-27-2024 Cobalamin (Vitamin B12) [Mass/Vol] 737 pg/mL Normal 211-911 [facility] Comment on above: Order Comment: Performed By: #### L 505.5000, L501.9100, L500.4050, L100.0100, L300.3900 #### [facility] [address] [place], [address] Vitamin D,25 Hydroxyon 05-27 Vitamin D 25-OH 64.3 ng/mL Normal [facility] Comment on above: Order Comment: Result Comment: Celine min D 25(OH) Status Range Deficiency <20 ng/mL (50nmol/L) Insufficiency 20 - 30 ng/mL (50 - 75 nmol/L) Sufficiency 30 - 100 ng/mL (75 - 250 nmol/L) Toxicity >100 ng/mL (>250 nmol/L) Performed By: #### L 505.5000, L501.9100, L500.4050, L100.0100, L300.3900 #### [facility] [address] [place], [address] Renal Profileon 05-26-2024 Albumin [Mass/Vol] 2.6 g/dL Low 3.2-5.0 [facility] Comment on above: Performed By: #### L 505.5000, L501.9100, L500.4050, L100.0100, L300.3900 #### [facility] [address] [place], [address] BUN/CRE 6.3 RATIO Low 10-20 [facility] Comment on above: Performed By: #### L 505.5000, L501.9100, L500.4050, L100.0100, L300.3900 #### [facility] [address] [place], [address] CA,Total 8.4 mg/dL Low 8.5-10.1 [facility] Comment on above: Performed By: #### L 505.5000, L501.9100, L500.4050, L100.0100, L300.3900 #### [facility] [address] [place], [address] Chloride [Moles/Vol] 100 mmol/L Normal 98-107 [facility] Comment on above: Performed By: #### L 505.5000, L501.9100, L500.4050, L100.0100, L300.3900 #### [facility] [address] [place], [address] CO2 [Moles/Vol] 26.0 mmol/L Normal 21.0-32.0 [facility] Comment on above: Performed By: #### L 505.5000, L501.9100, L500.4050, L100.0100, L300.3900 #### [facility] [address] [place], [address] Creatinine [Mass/Vol] 1.11 mg/dL Normal 0.70-1.30 [facility] Comment on above: Result Comment: The validity of the calculated GFR GFRAA in patients over 70 years has not been determined. Clinical correlation is essential. Performed By: #### L 505.5000, L501.9100, L500.4050, L100.0100, L300.3900 #### [facility] [address] [place], [address] ECRCL 67.90 ml/min Normal [facility] Comment on above: Performed By: #### L 505.5000, L501.9100, L500.4050, L100.0100, L300.3900 #### [facility] [address] [place], [address] EST GFR - AA 86 mL/min Normal >60 [facility] Comment on above: Result Comment: Afri can Jamaican GFR Calc Performed By: #### L 505.5000, L501.9100, L500.4050, L100.0100, L300.3900 #### [facility] [address] [place], [address] GFR/1.73 sq M.predicted among non-blacks MDRD (S/P/Bld) [Vol rate/Area] 71 mL/min/{1.73_m2} Normal >60 [facility] Comment on above: Result Comment: Non- GFR Calc Performed By: #### L 505.5000, L501.9100, L500.4050, L100.0100, L300.3900 #### [facility] [address] [place], [address] Glucose [Mass/Vol] 92 mg/dL Normal 74-106 [facility] Comment on above: Performed By: #### L 505.5000, L501.9100, L500.4050, L100.0100, L300.3900 #### [facility] [address] [place], [address] Phosphate [Mass/Vol] 3.6 mg/dL Normal 2.5-4.9 [facility] Comment on above: Performed By: #### L 505.5000, L501.9100, L500.4050, L100.0100, L300.3900 #### [facility] [address] [place], [address] Potassium [Moles/Vol] 4.1 mmol/L Normal 3.5-5.1 [facility] Comment on above: Performed By: #### L 505.5000, L501.9100, L500.4050, L100.0100, L300.3900 #### [facility] [address] [place], [address] Sodium [Moles/Vol] 132 mmol/L Low 136-145 [facility] Comment on above: Performed By: #### L 505.5000, L501.9100, L500.4050, L100.0100, L300.3900 #### [facility] [address] [place], [address] Urea nitrogen [Mass/Vol] 7 mg/dL Normal 7-18 [facility] Comment on above: Performed By: #### L 505.5000, L501.9100, L500.4050, L100.0100, L300.3900 #### [facility] [address] [place], [address] Renal Profileon 05-25-2024 Albumin [Mass/Vol] 3.2 g/dL Normal 3.2-5.0 [facility] Comment on above: Performed By: #### L 505.5000, L501.9100, L500.4050, L100.0100, L300.3900 #### [facility] [address] [place], [address] BUN/CRE 6.6 RATIO Low 10-20 [facility] Comment on above: Performed By: #### L 505.5000, L501.9100, L500.4050, L100.0100, L300.3900 #### [facility] [address] [place], [address] CA,Total 8.8 mg/dL Normal 8.5-10.1 [facility] Comment on above: Performed By: #### L 505.5000, L501.9100, L500.4050, L100.0100, L300.3900 #### [facility] [address] [place], [address] Chloride [Moles/Vol] 97 mmol/L Low 98-107 [facility] Comment on above: Performed By: #### L 505.5000, L501.9100, L500.4050, L100.0100, L300.3900 #### [facility] [address] [place], [address] CO2 [Moles/Vol] 22.0 mmol/L Normal 21.0-32.0 [facility] Comment on above: Performed By: #### L 505.5000, L501.9100, L500.4050, L100.0100, L300.3900 #### [facility] [address] [place], [address] Creatinine [Mass/Vol] 1.06 mg/dL Normal 0.70-1.30 [facility] Comment on above: Result Comment: The validity of the calculated GFR GFRAA in patients over 70 years has not been determined. Clinical correlation is essential. Performed By: #### L 505.5000, L501.9100, L500.4050, L100.0100, L300.3900 #### [facility] [address] [place], [address] ECRCL 71.10 ml/min Normal [facility] Comment on above: Performed By: #### L 505.5000, L501.9100, L500.4050, L100.0100, L300.3900 #### [facility] [address] [place], [address] EST GFR - AA 90 mL/min Normal >60 [facility] Comment on above: Result Comment: Afri can Jamaican GFR Calc Performed By: #### L 505.5000, L501.9100, L500.4050, L100.0100, L300.3900 #### [facility] [address] [place], [address] GFR/1.73 sq M.predicted among non-blacks MDRD (S/P/Bld) [Vol rate/Area] 75 mL/min/{1.73_m2} Normal >60 [facility] Comment on above: Result Comment: Non- GFR Calc Performed By: #### L 505.5000, L501.9100, L500.4050, L100.0100, L300.3900 #### [facility] [address] [place], [address] Glucose [Mass/Vol] 147 mg/dL High 74-106 [facility] Comment on above: Result Comment: Fast ing Glucose result greater than or equal to 126 mg/dL suggests DIABETES MELLITUS per A.D.A. criteria. Performed By: #### L 505.5000, L501.9100, L500.4050, L100.0100, L300.3900 #### [facility] [address] [place], [address] Phosphate [Mass/Vol] 2.6 mg/dL Normal 2.5-4.9 [facility] Comment on above: Performed By: #### L 505.5000, L501.9100, L500.4050, L100.0100, L300.3900 #### [facility] [address] [place], [address] Potassium [Moles/Vol] 3.6 mmol/L Normal 3.5-5.1 [facility] Comment on above: Performed By: #### L 505.5000, L501.9100, L500.4050, L100.0100, L300.3900 #### [facility] [address] [place], [address] Sodium [Moles/Vol] 130 mmol/L Low 136-145 [facility] Comment on above: Performed By: #### L 505.5000, L501.9100, L500.4050, L100.0100, L300.3900 #### [facility] [address] [place], [address] Urea nitrogen [Mass/Vol] 7 mg/dL Normal 7-18 [facility] Comment on above: Performed By: #### L 505.5000, L501.9100, L500.4050, L100.0100, L300.3900 #### [facility] [address] [place], [address] Bedside Glucoseon 05-24-2024 FINGERSTICK GLU 148 mg/dL High 74-106 [facility] Comment on above: Result Comment: CORINNE GEMENT OF PATIENT CARE PER NURSING PROTOCOL Performed By: #### L 505.5000, L501.9100, L500.4050, L100.0100, L300.3900 #### [facility] [address] [place], [address] FINGERSTICK GLU 102 mg/dL Normal 74-106 [facility] Comment on above: Result Comment: CORINNE GEMENT OF PATIENT CARE PER NURSING PROTOCOL Performed By: #### L 505.5000, L501.9100, L500.4050, L100.0100, L300.3900 #### [facility] [address] [place], [address] CBC-Complete Blood Cnt No Di ffon 05-24-2024 PATH REV Reviewed Normal [facility] Comment on above: Result Comment: Panc ytopenia. Leukopenia and neutropenia. Normocytic anemia. MARKED Thrombocytopenia. Clinical correlation necessary. Sundar Lei M.D. 05/24/24 AMENDED REPORT 05/24/24 1453 PATH REV previously reported as: February Performed By: #### L 501.5300, L501.5200 #### [facility] [address] [place], [address] Renal Profileon 05-24-2024 Albumin [Mass/Vol] 2.9 g/dL Low 3.2-5.0 [facility] Comment on above: Performed By: #### L 505.5000, L501.9100, L500.4050, L100.0100, L300.3900 #### [facility] [address] [place], [address] BUN/CRE 7.4 RATIO Low 10-20 [facility] Comment on above: Performed By: #### L 505.5000, L501.9100, L500.4050, L100.0100, L300.3900 #### [facility] [address] [place], [address] CA,Total 8.5 mg/dL Normal 8.5-10.1 [facility] Comment on above: Performed By: #### L 505.5000, L501.9100, L500.4050, L100.0100, L300.3900 #### [facility] [address] [place], [address] Chloride [Moles/Vol] 103 mmol/L Normal 98-107 [facility] Comment on above: Performed By: #### L 505.5000, L501.9100, L500.4050, L100.0100, L300.3900 #### [facility] [address] [place], [address] CO2 [Moles/Vol] 26.0 mmol/L Normal 21.0-32.0 [facility] Comment on above: Performed By: #### L 505.5000, L501.9100, L500.4050, L100.0100, L300.3900 #### [facility] [address] [place], [address] Creatinine [Mass/Vol] 0.95 mg/dL Normal 0.70-1.30 [facility] Comment on above: Result Comment: The validity of the calculated GFR GFRAA in patients over 70 years has not been determined. Clinical correlation is essential. Performed By: #### L 505.5000, L501.9100, L500.4050, L100.0100, L300.3900 #### [facility] [address] [place], [address] ECRCL 79.33 ml/min Normal [facility] Comment on above: Performed By: #### L 505.5000, L501.9100, L500.4050, L100.0100, L300.3900 #### [facility] [address] [place], [address] EST GFR - AA 103 mL/min Normal >60 [facility] Comment on above: Result Comment: Afri can Jamaican GFR Calc Performed By: #### L 505.5000, L501.9100, L500.4050, L100.0100, L300.3900 #### [facility] [address] [place], [address] GFR/1.73 sq M.predicted among non-blacks MDRD (S/P/Bld) [Vol rate/Area] 85 mL/min/{1.73_m2} Normal >60 [facility] Comment on above: Result Comment: Non- GFR Calc Performed By: #### L 505.5000, L501.9100, L500.4050, L100.0100, L300.3900 #### [facility] [address] [place], [address] Glucose [Mass/Vol] 108 mg/dL High 74-106 [facility] Comment on above: Result Comment: Fast ing Glucose result from 100 to 125 mg/dL suggests IMPAIRED HOMEOSTASIS per A.D.A. criteria. Performed By: #### L 505.5000, L501.9100, L500.4050, L100.0100, L300.3900 #### [facility] [address] [place], [address] Phosphate [Mass/Vol] 1.0 mg/dL Invalid Interpretation Code 2.5-4.9 [facility] Comment on above: Result Comment: Crit ical Result(s) Called at: 07:38:55 05/24/2024 by: JONNY SLAUGHTER to Aminta Alas. Results read back by same. Performed By: #### L 505.5000, L501.9100, L500.4050, L100.0100, L300.3900 #### [facility] [address] [place], [address] Potassium [Moles/Vol] 3.9 mmol/L Normal 3.5-5.1 [facility] Comment on above: Performed By: #### L 505.5000, L501.9100, L500.4050, L100.0100, L300.3900 #### [facility] [address] [place], [address] Sodium [Moles/Vol] 135 mmol/L Low 136-145 [facility] Comment on above: Performed By: #### L 505.5000, L501.9100, L500.4050, L100.0100, L300.3900 #### [facility] [address] [place], [address] Urea nitrogen [Mass/Vol] 7 mg/dL Normal 7-18 [facility] Comment on above: Performed By: #### L 505.5000, L501.9100, L500.4050, L100.0100, L300.3900 #### [facility] [address] [place], [address] Basic Metabolic Profile (BMP )on 05-23-2024 BUN/CRE 8.4 RATIO Low 10-20 [facility] Comment on above: Performed By: #### L 505.5000, L501.9100, L500.4050, L100.0100, L300.3900 #### [facility] [address] [place], [address] CA,Total 8.2 mg/dL Low 8.5-10.1 [facility] Comment on above: Performed By: #### L 505.5000, L501.9100, L500.4050, L100.0100, L300.3900 #### [facility] [address] [place], [address] Chloride [Moles/Vol] 103 mmol/L Normal 98-107 [facility] Comment on above: Performed By: #### L 505.5000, L501.9100, L500.4050, L100.0100, L300.3900 #### [facility] [address] [place], [address] CO2 [Moles/Vol] 26.0 mmol/L Normal 21.0-32.0 [facility] Comment on above: Performed By: #### L 505.5000, L501.9100, L500.4050, L100.0100, L300.3900 #### [facility] [address] [place], [address] Creatinine [Mass/Vol] 0.95 mg/dL Normal 0.70-1.30 [facility] Comment on above: Result Comment: The validity of the calculated GFR GFRAA in patients over 70 years has not been determined. Clinical correlation is essential. Performed By: #### L 505.5000, L501.9100, L500.4050, L100.0100, L300.3900 #### [facility] [address] [place], [address] ECRCL 79.33 ml/min Normal [facility] Comment on above: Performed By: #### L 505.5000, L501.9100, L500.4050, L100.0100, L300.3900 #### [facility] [address] [place], [address] EST GFR - AA 102 mL/min Normal >60 [facility] Comment on above: Result Comment: Afri can Jamaican GFR Calc Performed By: #### L 505.5000, L501.9100, L500.4050, L100.0100, L300.3900 #### [facility] [address] [place], [address] GAP 7 Normal 5-15 [facility] Comment on above: Performed By: #### L 505.5000, L501.9100, L500.4050, L100.0100, L300.3900 #### [facility] [address] [place], [address] GFR/1.73 sq M.predicted among non-blacks MDRD (S/P/Bld) [Vol rate/Area] 85 mL/min/{1.73_m2} Normal >60 [facility] Comment on above: Result Comment: Non- GFR Calc Performed By: #### L 505.5000, L501.9100, L500.4050, L100.0100, L300.3900 #### [facility] [address] [place], [address] Glucose [Mass/Vol] 124 mg/dL High 74-106 [facility] Comment on above: Result Comment: Fast ing Glucose result from 100 to 125 mg/dL suggests IMPAIRED HOMEOSTASIS per A.D.A. criteria. Performed By: #### L 505.5000, L501.9100, L500.4050, L100.0100, L300.3900 #### [facility] [address] [place], [address] Potassium [Moles/Vol] 3.7 mmol/L Normal 3.5-5.1 [facility] Comment on above: Performed By: #### L 505.5000, L501.9100, L500.4050, L100.0100, L300.3900 #### [facility] [address] [place], [address] Sodium [Moles/Vol] 136 mmol/L Normal 136-145 [facility] Comment on above: Performed By: #### L 505.5000, L501.9100, L500.4050, L100.0100, L300.3900 #### [facility] [address] [place], [address] Urea nitrogen [Mass/Vol] 8 mg/dL Normal 7-18 [facility] Comment on above: Performed By: #### L 505.5000, L501.9100, L500.4050, L100.0100, L300.3900 #### [facility] [address] [place], [address] Bedside Glucoseon 05-23-2024 FINGERSTICK GLU 143 mg/dL High 74-106 [facility] Comment on above: Result Comment: CORINNE GEMENT OF PATIENT CARE PER NURSING PROTOCOL Performed By: #### L 505.5000, L501.9100, L500.4050, L100.0100, L300.3900 #### [facility] [address] [place], [address] FINGERSTICK GLU 115 mg/dL High 74-106 [facility] Comment on above: Result Comment: CORINNE GEMENT OF PATIENT CARE PER NURSING PROTOCOL Performed By: #### L 505.5000, L501.9100, L500.4050, L100.0100, L300.3900 #### [facility] [address] [place], [address] FINGERSTICK GLU 139 mg/dL High 74-106 [facility] Comment on above: Result Comment: CORINNE LONDONO OF PATIENT CARE PER NURSING PROTOCOL Performed By: #### L 505.5000, L501.9100, L500.4050, L100.0100, L300.3900 #### [facility] [address] [place], [address] CBC W/Diff, Automatedon 08-0 PATH REV Reviewed Normal [facility] Comment on above: Order Comment: CRITI JAMES VALUE VERIFIED. CALLED TO DEMETRIUS GRIFFITH05/22/24 Huma3 Jonh Powers.RESULTS READ BACK BY SAME. Result Comment: Panc ytopenia. Leukopenia and neutropenia. Normocytic anemia. MARKED Thrombocytopenia. Clinical correlation necessary. Sundar Lei M.D. 05/23/24 AMENDED REPORT 05/23/24 1332 PATH REV previously reported as: February kathleen Performed By: #### L 505.5000, L501.9100, L500.4050, L100.0100, L300.3900 #### [facility] [address] [place], [address] Differential Commenton 05-23 SMEAR COMMENT SCANNED Normal [facility] Comment on above: Result Comment: JÚNIOR ED THROMBOCYTOPENIA Performed By: #### L 501.5300, L501.5200 #### [facility] [address] [place], [address] Magnesiumon 05-23-2024 Magnesium [Mass/Vol] 2.2 mg/dL Normal 1.6-2.6 [facility] Comment on above: Performed By: #### L 505.5000, L501.9100, L500.4050, L100.0100, L300.3900 #### [facility] [facility] [address] [place], [address] Phosphoruson 05-23-2024 Phosphate [Mass/Vol] 1.3 mg/dL Low 2.5-4.9 [facility] Comment on above: Performed By: #### L 505.5000, L501.9100, L500.4050, L100.0100, L300.3900 #### [facility] [address] [place], [address] Bedside Glucoseon 05-22-2024 FINGERSTICK GLU 105 mg/dL Normal 74-106 [facility] Comment on above: Result Comment: CORINNE GEMENT OF PATIENT CARE PER NURSING PROTOCOL Performed By: #### L 505.5000, L501.9100, L500.4050, L100.0100, L300.3900 #### [facility] [address] [place], [address] FINGERSTICK GLU 52 mg/dL Low 74-106 [facility] Comment on above: Result Comment: CORINNE GEMENT OF PATIENT CARE PER NURSING PROTOCOL Performed By: #### L 501.5300, L501.5200 #### [facility] [address] [place], [address] FINGERSTICK GLU 92 mg/dL Normal 74-106 [facility] Comment on above: Result Comment: CORINNE GEMENT OF PATIENT CARE PER NURSING PROTOCOL Performed By: #### L 505.5000, L501.9100, L500.4050, L100.0100, L300.3900 #### [facility] [address] [place], [address] FINGERSTICK GLU 98 mg/dL Normal 74-106 [facility] Comment on above: Result Comment: CORINNE GEMENT OF PATIENT CARE PER NURSING PROTOCOL Performed By: #### L 505.5000, L501.9100, L500.4050, L100.0100, L300.3900 #### [facility] [address] [place], [address] FINGERSTICK GLU 69 mg/dL Low 74-106 [facility] Comment on above: Result Comment: CORINNE GEMENT OF PATIENT CARE PER NURSING PROTOCOL Performed By: #### L 505.5000, L501.9100, L500.4050, L100.0100, L300.3900 #### [facility] [address] [place], [address] Comprehensive Metabolic Prof ilon 05-22-2024 Albumin [Mass/Vol] 3.2 g/dL Normal 3.2-5.0 [facility] Comment on above: Performed By: #### L 505.5000, L501.9100, L500.4050, L100.0100, L300.3900 #### [facility] [address] [place], [address] Albumin/Globulin [Mass ratio] 1.0 {ratio} Normal 0.9-2.4 [facility] Comment on above: Performed By: #### L 505.5000, L501.9100, L500.4050, L100.0100, L300.3900 #### [facility] [address] [place], [address] ALK P 87 U/L Normal 45-117 [facility] Comment on above: Performed By: #### L 505.5000, L501.9100, L500.4050, L100.0100, L300.3900 #### [facility] [address] [place], [address] ALT [Catalytic activity/Vol] 76 U/L High 16-61 [facility] Comment on above: Performed By: #### L 505.5000, L501.9100, L500.4050, L100.0100, L300.3900 #### [facility] [address] [place], [address] AST [Catalytic activity/Vol] 168 U/L High 15-37 [facility] Comment on above: Performed By: #### L 505.5000, L501.9100, L500.4050, L100.0100, L300.3900 #### [facility] [address] [place], [address] Bilirubin [Mass/Vol] 1.00 mg/dL Normal 0.20-1.00 [facility] Comment on above: Result Comment: For patients on eltrombopag therapy, use of Dimension Sims TBIL is not recommended. Performed By: #### L 505.5000, L501.9100, L500.4050, L100.0100, L300.3900 #### [facility] [address] [place], [address] BUN/CRE 8.7 RATIO Low 10-20 [facility] Comment on above: Performed By: #### L 505.5000, L501.9100, L500.4050, L100.0100, L300.3900 #### [facility] [address] [place], [address] CA,Total 7.9 mg/dL Low 8.5-10.1 [facility] Comment on above: Performed By: #### L 505.5000, L501.9100, L500.4050, L100.0100, L300.3900 #### [facility] [address] [place], [address] Chloride [Moles/Vol] 101 mmol/L Normal 98-107 [facility] Comment on above: Performed By: #### L 505.5000, L501.9100, L500.4050, L100.0100, L300.3900 #### [facility] [address] [place], [address] CO2 [Moles/Vol] 18.0 mmol/L Low 21.0-32.0 [facility] Comment on above: Performed By: #### L 505.5000, L501.9100, L500.4050, L100.0100, L300.3900 #### [facility] [address] [place], [address] Creatinine [Mass/Vol] 1.04 mg/dL Normal 0.70-1.30 [facility] Comment on above: Result Comment: The validity of the calculated GFR GFRAA in patients over 70 years has not been determined. Clinical correlation is essential. Performed By: #### L 505.5000, L501.9100, L500.4050, L100.0100, L300.3900 #### [facility] [address] [place], [address] ECRCL 72.47 ml/min Normal [facility] Comment on above: Performed By: #### L 505.5000, L501.9100, L500.4050, L100.0100, L300.3900 #### [facility] [address] [place], [address] EST GFR - AA 92 mL/min Normal >60 [facility] Comment on above: Result Comment: Afri can Jamaican GFR Calc Performed By: #### L 505.5000, L501.9100, L500.4050, L100.0100, L300.3900 #### [facility] [address] [place], [address] GAP 14 Normal 5-15 [facility] Comment on above: Performed By: #### L 505.5000, L501.9100, L500.4050, L100.0100, L300.3900 #### [facility] [address] [place], [address] GFR/1.73 sq M.predicted among non-blacks MDRD (S/P/Bld) [Vol rate/Area] 76 mL/min/{1.73_m2} Normal >60 [facility] Comment on above: Result Comment: Non- GFR Calc Performed By: #### L 505.5000, L501.9100, L500.4050, L100.0100, L300.3900 #### [facility] [address] [place], [address] Globulin (S) [Mass/Vol] 3.1 g/dL Normal 2.2-4.2 [facility] Comment on above: Performed By: #### L 505.5000, L501.9100, L500.4050, L100.0100, L300.3900 #### [facility] [address] [place], [address] Glucose [Mass/Vol] 91 mg/dL Normal 74-106 [facility] Comment on above: Performed By: #### L 505.5000, L501.9100, L500.4050, L100.0100, L300.3900 #### [facility] [address] [place], [address] Potassium [Moles/Vol] 4.0 mmol/L Normal 3.5-5.1 [facility] Comment on above: Performed By: #### L 505.5000, L501.9100, L500.4050, L100.0100, L300.3900 #### [facility] [address] [place], [address] Sodium [Moles/Vol] 133 mmol/L Low 136-145 [facility] Comment on above: Performed By: #### L 505.5000, L501.9100, L500.4050, L100.0100, L300.3900 #### [facility] [address] [place], [address] T PROT 6.3 g/dL Low 6.4-8.2 [facility] Comment on above: Performed By: #### L 505.5000, L501.9100, L500.4050, L100.0100, L300.3900 #### [facility] [address] [place], [address] Urea nitrogen [Mass/Vol] 9 mg/dL Normal 7-18 [facility] Comment on above: Performed By: #### L 505.5000, L501.9100, L500.4050, L100.0100, L300.3900 #### [facility] [address], [address] Magnesiumon 05-22-2024 Magnesium [Mass/Vol] 1.4 mg/dL Low 1.6-2.6 [facility] Comment on above: Performed By: #### L 505.5000, L501.9100, L500.4050, L100.0100, L300.3900 #### [facility] [address], [address] Phosphoruson 05-22-2024 Phosphate [Mass/Vol] 1.8 mg/dL Low 2.5-4.9 [facility] Comment on above: Performed By: #### L 505.5000, L501.9100, L500.4050, L100.0100, L300.3900 #### [facility] [address], [address] Alcohol, Blood (Medical)-Ser umon 05-21-2024 SERUM ETOH 294.0 mg/dL Normal [facility] Comment on above: Result Comment: The serum:whole blood ethanol ratio is approximately 1.14 and varies slightly with hematocrit. Medical Alcohol reference interval and critical value in non-tolerant individuals; 50 - 100 Impairment 100 Intoxication 100 - 250 Severe Poisoning 250 - 400 Deep/possible fatal coma Performed By: #### L 505.5000, L501.9100, L500.4050, L100.0100, L300.3900 #### [facility] [address] [place], [address] Brain/Head without Contrasto n 05-21-2024 Brain/Head without Contrast [facility] [address] [place] [address] Brain/Head without Contrast MR#: [id number] Acct: [id number] Name: WOODY NI Rep #: [id number] : 1960 M 64 From: Mundo Mackenzie DO PCP: Dr. Jani Quezada MD Status: REG ER Study: Brain/Head without Contrast Date of Exam: 01/09 Exam# [id number] Ordering Dr: Stella Mackay DO [id number] STUDY: CT BRAIN WITHOUT CONTRAST REASON FOR [...] 21:57 EDT Reading Location ID and State: [facility] / [place] Tel [phone], Service support , CC: Dr. Jani Quezada MD; Dr. Stella Mackay DO Interior Design Teacher: Signed Normal [facility] CBC W/Diff, Automatedon Anisocytosis Ql (Bld) RARE Normal [facility] Comment on above: Performed By: #### L 505.5000, L501.9100, L500.4050, L100.0100, L300.3900 #### [facility] [address] [place], [address] MACROCYTOSIS RARE Normal [facility] Comment on above: Performed By: #### L 505.5000, L501.9100, L500.4050, L100.0100, L300.3900 #### [facility] [address] [place], [address] PLT EST MOD DEC Normal ADEQ [facility] Comment on above: Performed By: #### L 505.5000, L501.9100, L500.4050, L100.0100, L300.3900 #### [facility] [address] [place], [address] RED CELL MORPH N CHROM Normal NORM C C [facility] Comment on above: Performed By: #### L 505.5000, L501.9100, L500.4050, L100.0100, L300.3900 #### [facility] [address] [place], [address] SMEAR COMMENT SEECOMMENT Normal [facility] Comment on above: Result Comment: LYMP HOPENIA NOTED Performed By: #### L 505.5000, L501.9100, L500.4050, L100.0100, L300.3900 #### [facility] [address] [place], [address] Comprehensive Metabolic Prof saul 05-21-2024 Albumin [Mass/Vol] 3.7 g/dL Normal 3.2-5.0 [facility] Comment on above: Performed By: #### L 505.5000, L501.9100, L500.4050, L100.0100, L300.3900 #### [facility] [address] [place], [address] Albumin/Globulin [Mass ratio] 1.1 {ratio} Normal 0.9-2.4 [facility] Comment on above: Performed By: #### L 505.5000, L501.9100, L500.4050, L100.0100, L300.3900 #### [facility] [address] [place], [address] ALK P 96 U/L Normal 45-117 [facility] Comment on above: Performed By: #### L 505.5000, L501.9100, L500.4050, L100.0100, L300.3900 #### [facility] [address] [place], [address] ALT [Catalytic activity/Vol] 84 U/L High 16-61 [facility] Comment on above: Performed By: #### L 505.5000, L501.9100, L500.4050, L100.0100, L300.3900 #### [facility] [address] [place], [address] AST [Catalytic activity/Vol] 197 U/L High 15-37 [facility] Comment on above: Performed By: #### L 505.5000, L501.9100, L500.4050, L100.0100, L300.3900 #### [facility] [address] [place], [address] Bilirubin [Mass/Vol] 0.90 mg/dL Normal 0.20-1.00 [facility] Comment on above: Result Comment: For patients on eltrombopag therapy, use of Dimension Sims TBIL is not recommended. Performed By: #### L 505.5000, L501.9100, L500.4050, L100.0100, L300.3900 #### [facility] [address] [place], [address] BUN/CRE 8.9 RATIO Low 10-20 [facility] Comment on above: Performed By: #### L 505.5000, L501.9100, L500.4050, L100.0100, L300.3900 #### [facility] [address] [place], [address] CA,Total 8.6 mg/dL Normal 8.5-10.1 [facility] Comment on above: Performed By: #### L 505.5000, L501.9100, L500.4050, L100.0100, L300.3900 #### [facility] [address] [place], [address] Chloride [Moles/Vol] 92 mmol/L Low 98-107 [facility] Comment on above: Performed By: #### L 505.5000, L501.9100, L500.4050, L100.0100, L300.3900 #### [facility] [address] [place], [address] CO2 [Moles/Vol] 17.0 mmol/L Low 21.0-32.0 [facility] Comment on above: Performed By: #### L 505.5000, L501.9100, L500.4050, L100.0100, L300.3900 #### [facility] [address] [place], [address] Creatinine [Mass/Vol] 1.23 mg/dL Normal 0.70-1.30 [facility] Comment on above: Result Comment: The validity of the calculated GFR GFRAA in patients over 70 years has not been determined. Clinical correlation is essential. Performed By: #### L 505.5000, L501.9100, L500.4050, L100.0100, L300.3900 #### [facility] [address] [place], [address] ECRCL 62.65 ml/min Normal [facility] Comment on above: Performed By: #### L 505.5000, L501.9100, L500.4050, L100.0100, L300.3900 #### [facility] [address] [place], [address] EST GFR - AA 76 mL/min Normal >60 [facility] Comment on above: Result Comment: Afri can Jamaican GFR Calc Performed By: #### L 505.5000, L501.9100, L500.4050, L100.0100, L300.3900 #### [facility] [address] [place], [address] GAP 18 High 5-15 [facility] Comment on above: Performed By: #### L 505.5000, L501.9100, L500.4050, L100.0100, L300.3900 #### [facility] [address] [place], [address] GFR/1.73 sq M.predicted among non-blacks MDRD (S/P/Bld) [Vol rate/Area] 63 mL/min/{1.73_m2} Normal >60 [facility] Comment on above: Result Comment: Non- GFR Calc Performed By: #### L 505.5000, L501.9100, L500.4050, L100.0100, L300.3900 #### [facility] [address] [place], [address] Globulin (S) [Mass/Vol] 3.4 g/dL Normal 2.2-4.2 [facility] Comment on above: Performed By: #### L 505.5000, L501.9100, L500.4050, L100.0100, L300.3900 #### [facility] [address] [place], [address] Glucose [Mass/Vol] 96 mg/dL Normal 74-106 [facility] Comment on above: Performed By: #### L 505.5000, L501.9100, L500.4050, L100.0100, L300.3900 #### [facility] [address] [place], [address] Potassium [Moles/Vol] 4.1 mmol/L Normal 3.5-5.1 [facility] Comment on above: Performed By: #### L 505.5000, L501.9100, L500.4050, L100.0100, L300.3900 #### [facility] [address] [place], [address] Sodium [Moles/Vol] 127 mmol/L Low 136-145 [facility] Comment on above: Performed By: #### L 505.5000, L501.9100, L500.4050, L100.0100, L300.3900 #### [facility] [address] [place], [address] T PROT 7.1 g/dL Normal 6.4-8.2 [facility] Comment on above: Performed By: #### L 505.5000, L501.9100, L500.4050, L100.0100, L300.3900 #### [facility] [address] [place], [address] Urea nitrogen [Mass/Vol] 11 mg/dL Normal 7-18 [facility] Comment on above: Performed By: #### L 505.5000, L501.9100, L500.4050, L100.0100, L300.3900 #### [facility] [address] [place], [address] Emergency Department Summary on 05-21-2024 Emergency Department Summary [facility] Medical Records Department [address] [place] [address] Emergency Department Summary 05/21/24 MR#: [id number] Acct: [id number] Name: WOODY NI Rep #: [id number] : 1960 64 From: Stella Mackay DO [...] drug use. Patient wants detox from alcohol. [facility] Medical History Alcohol dependence Alcohol abuse Diabetes [...] Denies rhinorr (more content not included)... Normal [facility] H&P Exam - Hospitalist [facility] Medical Records Department [address] [place] [address] H P Exam - Hospitalist 05/21/24 2306 MR#: [id number] Acct: [id number] Name: WOODY NI Rep #: [id number] : 1960 64 From: Ruddy Galdamez DO PCP: Dr. Jani Quezada MD Status:ADM IN Location: [facility] [id number] HPI - General General Date of Admission: [...] go up that so that was in [facility] presented to [facility] who discharged him to home. Patient has continued to drink since being at home. After his fall he is now requesting treatment for alcohol withdrawal. [facility] Medical History Alcohol dependence Alcohol abuse Diabetes [...] mentioned abov (more content not included)... Normal [facility] Spine Cervical without Contr ason 05-21-2024 Spine Cervical without Contras [facility] Imaging Services [address] [place] [address] Spine Cervical without Contras MR#: [id number] Acct: [id number] Name: WOODY IN Rep #: [id number] : 1960 M 64 From: Mundo Mackenzie DO PCP: Dr. Jani Quezada MD Status: REG ER Study: Spine Cervical without Contras Date of Exam: 0 05/21/24 Exam# [id number] Ordering Dr: Stella Mackay DO [id number] STUDY: CT CERVICAL SPINE WITHOUT CONTRAST REASON [...] 22:12 EDT Reading Location ID and State: [facility] / [place] Tel [phone], Service support , CC: Dr. Jani Quezada MD; Dr. Stella Mackay DO Interior Design Teacher: Signed Normal [facility] Urine Drug Screen (VISTA)on 05-21-2024 AMPHETAMINES Negative Normal <1000 ng/mL [facility] Comment on above: Performed By: #### L 501.5300, L501.5200 #### [facility] [address] [place], [address] BARBITIURATES Negative Normal < 200 ng/mL [facility] Comment on above: Performed By: #### L 501.5300, L501.5200 #### [facility] [address] [place], [place], [address] BENZODIAZIPINE Negative Normal < 200 ng/mL [facility] Comment on above: Performed By: #### L 501.5300, L501.5200 #### [facility] [address] [place], [address] COCAINE Negative Normal < 300 ng/mL [facility] Comment on above: Performed By: #### L 501.5300, L501.5200 #### [facility] [address] [place], [address] ECSTACY Negative Normal < 500 ng/mL [facility] Comment on above: Performed By: #### L 501.5300, L501.5200 #### [facility] [address] [place], [address] METHADONE Negative Normal < 300 ng/mL [facility] Comment on above: Performed By: #### L 501.5300, L501.5200 #### [facility] [address] [place], [address] OPIATES Negative Normal < 300 ng/mL [facility] Comment on above: Performed By: #### L 501.5300, L501.5200 #### [facility] [address] [place], [address] PCP Negative Normal < 25 ng/mL [facility] Comment on above: Performed By: #### L 501.5300, L501.5200 #### [facility] [address] [place], [address] THC Positive Abnormal < 50 ng/mL [facility] Comment on above: Performed By: #### L 501.5300, L501.5200 #### [facility] [address] [place], [address] VISTA UDS PH 6 Normal [facility] Comment on above: Performed By: #### L 501.5300, L501.5200 #### [facility] [address] [place], [address] Emergency Department Summary on 05-03-2024 Emergency Department Summary [facility] Medical Records Department [address] [place] [address] Emergency Department Summary 05/03/24 MR#: [id number] Acct: [id number] Name: WOODY NI Rep #: [id number] : 1960 64 From: Daniel Knapp DO [...] was brought to the hospital for evaluation [facility] Medical History Alcohol dependence Alcohol abuse Diabetes [...] type: beer (more content not included)... Normal [facility] Urine Drug Screen (VISTA)on 05-03-2024 AMPHETAMINES Negative Normal <1000 ng/mL [facility] Comment on above: Performed By: #### L 500.2500, L100.0100, L501.5200 #### [facility] [address] [facility] [address] BARBITIURATES Positive Abnormal < 200 ng/mL [facility] Comment on above: Performed By: #### L 500.2500, L100.0100, L501.5200 #### [facility] [address] [facility] [address] BENZODIAZIPINE Negative Normal < 200 ng/mL [facility] Comment on above: Performed By: #### L 500.2500, L100.0100, L501.5200 #### [facility] [address] [facility] [address] COCAINE Negative Normal < 300 ng/mL [facility] Comment on above: Performed By: #### L 500.2500, L100.0100, L501.5200 #### [facility] [address] [place], [address] ECSTACY Negative Normal < 500 ng/mL [facility] Comment on above: Performed By: #### L 500.2500, L100.0100, L501.5200 #### [facility] [address] [facility] [address] METHADONE Negative Normal < 300 ng/mL [facility] Comment on above: Performed By: #### L 500.2500, L100.0100, L501.5200 #### [facility] [address] [facility] [address] OPIATES Negative Normal < 300 ng/mL [facility] Comment on above: Performed By: #### L 500.2500, L100.0100, L501.5200 #### [facility] [address] [place], [address] PCP Negative Normal < 25 ng/mL [facility] Comment on above: Performed By: #### L 500.2500, L100.0100, L501.5200 #### [facility] [address] [place], [address] THC Positive Abnormal < 50 ng/mL [facility] Comment on above: Performed By: #### L 500.2500, L100.0100, L501.5200 #### [facility] [address] [place], [address] VISTA UDS PH 5 Normal [facility] Comment on above: Performed By: #### L 500.2500, L100.0100, L501.5200 #### [facility] [address] [place], [address] Alcohol, Blood (Medical)-Ser umon 05-02-2024 SERUM ETOH 347.0 mg/dL Invalid Interpretation Code [facility] Comment on above: Result Comment: Crit ical Result(s) Called at: 23:58:38 05/02/2024 by: Moshe Werner. to LSparr FOUNDRY OPERATOR. Results read back by same. The serum:whole blood ethanol ratio is approximately 1.14 and varies slightly with hematocrit. Medical Alcohol reference interval and critical value in non-tolerant individuals; 50 - 100 Impairment 100 Intoxication 100 - 250 Severe Poisoning 250 - 400 Deep/possible fatal coma Performed By: #### L 500.2500, L100.0100, L501.5200 #### [facility] [address] [place], [address] Basic Metabolic Profile (BMP )on 05-02-2024 BUN/CRE 12.7 RATIO Normal 10-20 [facility] Comment on above: Performed By: #### L 500.2500, L100.0100, L501.5200 #### [facility] [address] [place], [address] CA,Total 8.7 mg/dL Normal 8.5-10.1 [facility] Comment on above: Performed By: #### L 500.2500, L100.0100, L501.5200 #### [facility] [address] [place], [address] Chloride [Moles/Vol] 100 mmol/L Normal 98-107 [facility] Comment on above: Performed By: #### L 500.2500, L100.0100, L501.5200 #### [facility] [address] [place], [address] CO2 [Moles/Vol] 16.0 mmol/L Low 21.0-32.0 [facility] Comment on above: Performed By: #### L 500.2500, L100.0100, L501.5200 #### [facility] [address] [place], [address] Creatinine [Mass/Vol] 0.95 mg/dL Normal 0.70-1.30 [facility] Comment on above: Result Comment: The validity of the calculated GFR GFRAA in patients over 70 years has not been determined. Clinical correlation is essential. Performed By: #### L 500.2500, L100.0100, L501.5200 #### [facility] [address] [place], [address] ECRCL 81.11 ml/min Normal [facility] Comment on above: Performed By: #### L 500.2500, L100.0100, L501.5200 #### [facility] [address] [place], [address] EST GFR - AA 103 mL/min Normal >60 [facility] Comment on above: Result Comment: Afri can Jamaican GFR Calc Performed By: #### L 500.2500, L100.0100, L501.5200 #### [facility] [address] [place], [address] GAP 16 High 5-15 [facility] Comment on above: Performed By: #### L 500.2500, L100.0100, L501.5200 #### [facility] [address] [place], [address] GFR/1.73 sq M.predicted among non-blacks MDRD (S/P/Bld) [Vol rate/Area] 85 mL/min/{1.73_m2} Normal >60 [facility] Comment on above: Result Comment: Non- GFR Calc Performed By: #### L 500.2500, L100.0100, L501.5200 #### [facility] [address] [place], [address] Glucose [Mass/Vol] 88 mg/dL Normal 74-106 [facility] Comment on above: Performed By: #### L 500.2500, L100.0100, L501.5200 #### [facility] [address] [place], [address] Potassium [Moles/Vol] 3.3 mmol/L Low 3.5-5.1 [facility] Comment on above: Performed By: #### L 500.2500, L100.0100, L501.5200 #### [facility] [address] [place], [address] Sodium [Moles/Vol] 132 mmol/L Low 136-145 [facility] Comment on above: Performed By: #### L 500.2500, L100.0100, L501.5200 #### [facility] [address] [place], [address] Urea nitrogen [Mass/Vol] 12 mg/dL Normal 7-18 [facility] Comment on above: Performed By: #### L 500.2500, L100.0100, L501.5200 #### [facility] [address] [place], [address] Brain/Head without Contrasto n 05-02-2024 Brain/Head without Contrast [facility] Imaging Services [address] [place] [address] Brain/Head without Contrast MR#: [id number] Acct: [id number] Name: WOODY NI Rep #: [id number] : 1960 M 64 From: Beto Urena MD PCP: Dr. Jani Quezada MD Status: REG ER Study: Brain/Head without Contrast Date of Exam: 04/18 03/11 Exam# [id number] Ordering Dr: Daniel Knapp DO [id number] INDICATION: head injury EXAMINATION: CT BRAIN - [...] Dr. Jani Quezada MD; Daniel Knapp DO Interior Design Teacher: Signed Normal [facility] CBC W/Diff, Automatedon 04-18 Absolute Lymph 2.93 X10 3/uL Normal 0.83-4.51 [facility] Comment on above: Performed By: #### L 500.2500, L100.0100, L501.5200 #### [facility] [address] [place], [address] Absolute Neut 4.2 X10 3/uL Normal 2.0-7.7 [facility] Comment on above: Performed By: #### L 500.2500, L100.0100, L501.5200 #### [facility] [address] [place], [address] Basophils/100 WBC (Bld) 0.6 % Normal 0-1 [facility] Comment on above: Performed By: #### L 500.2500, L100.0100, L501.5200 #### [facility] [address] [place], [address] Eosinophils/100 WBC (Bld) 2.6 % Normal 0-5 [facility] Comment on above: Performed By: #### L 500.2500, L100.0100, L501.5200 #### [facility] [address] [place], [address] Erythrocyte distribution width (RBC) [Ratio] 14.0 % Normal 11.6-14.6 [facility] Comment on above: Performed By: #### L 500.2500, L100.0100, L501.5200 #### [facility] [address] [place], [address] Hematocrit (Bld) [Volume fraction] 34.9 % Low 40-54 [facility] Comment on above: Performed By: #### L 500.2500, L100.0100, L501.5200 #### [facility] [address] [place], [address] Hemoglobin (Bld) [Mass/Vol] 12.0 g/dL Low 13.0-16.5 [facility] Comment on above: Performed By: #### L 500.2500, L100.0100, L501.5200 #### [facility] [address] [place], [address] IG% 0.900 Normal 0.0-0.9 [facility] Comment on above: Result Comment: IG% - Immature Granulocytes (promyelocytes, myelocytes and metamyelocytes) > 1% indicates that a LEFT SHIFT is Present. Performed By: #### L 500.2500, L100.0100, L501.5200 #### [facility] [address] [place], [address] Lymphocytes/100 WBC (Bld) 36.9 % Normal 19-41 [facility] Comment on above: Performed By: #### L 500.2500, L100.0100, L501.5200 #### [facility] [address] [place], [address] MCH (RBC) [Entitic mass] 30.0 pg Normal 27.0-32.0 [facility] Comment on above: Performed By: #### L 500.2500, L100.0100, L501.5200 #### [facility] [address] [place], [address] MCHC (RBC) [Mass/Vol] 34.4 g/dL Normal 32-36 [facility] Comment on above: Performed By: #### L 500.2500, L100.0100, L501.5200 #### [facility] [address] [place], [address] MCV (RBC) [Entitic vol] 87.3 fL Normal 80-94 [facility] Comment on above: Performed By: #### L 500.2500, L100.0100, L501.5200 #### [facility] [address] [place], [address] Monocytes/100 WBC (Bld) 6.1 % Normal 0-10 [facility] Comment on above: Performed By: #### L 500.2500, L100.0100, L501.5200 #### [facility] [address] [place], [address] Neutrophils/100 WBC (Bld) 52.9 % Normal 47-70 [facility] Comment on above: Performed By: #### L 500.2500, L100.0100, L501.5200 #### [facility] [address] [place], [address] Nucleated RBC (Bld) [#/Vol] 0 10*3/uL Normal 0-5 [facility] Comment on above: Performed By: #### L 500.2500, L100.0100, L501.5200 #### [facility] [address] [place], [address] Platelet mean volume (Bld) [Entitic vol] 8.6 fL Normal 6.2-12.0 [facility] Comment on above: Performed By: #### L 500.2500, L100.0100, L501.5200 #### [facility] [address] [place], [address] Platelets (Bld) [#/Vol] 185 10*3/uL Normal 150-450 [facility] Comment on above: Performed By: #### L 500.2500, L100.0100, L501.5200 #### [facility] [address] [place], [address] RBC (Bld) [#/Vol] 4.00 10*6/uL Low 4.6-6.2 [facility] Comment on above: Performed By: #### L 500.2500, L100.0100, L501.5200 #### [facility] [address] [place], [address] RDW SD 45.0 fl High 35.1-43.9 [facility] Comment on above: Performed By: #### L 500.2500, L100.0100, L501.5200 #### [facility] [address] [place], [address] WBC (Bld) [#/Vol] 7.9 10*3/uL Normal 4.4-11.0 [facility] Comment on above: Performed By: #### L 500.2500, L100.0100, L501.5200 #### [facility] [address] [place], [address] Liver Profileon 05-02-2024 Albumin [Mass/Vol] 3.8 g/dL Normal 3.2-5.0 [facility] Comment on above: Performed By: #### L 500.2500, L100.0100, L501.5200 #### [facility] [address] [place], [address] ALK P 49 U/L Normal 45-117 [facility] Comment on above: Performed By: #### L 500.2500, L100.0100, L501.5200 #### [facility] [address] [place], [address] ALT [Catalytic activity/Vol] 29 U/L Normal 16-61 [facility] Comment on above: Performed By: #### L 500.2500, L100.0100, L501.5200 #### [facility] [address] [place], [address] AST [Catalytic activity/Vol] 29 U/L Normal 15-37 [facility] Comment on above: Performed By: #### L 500.2500, L100.0100, L501.5200 #### [facility] [address] [place], [address] Bilirubin [Mass/Vol] 0.30 mg/dL Normal 0.20-1.00 [facility] Comment on above: Result Comment: For patients on eltrombopag therapy, use of Dimension Sims TBIL is not recommended. Performed By: #### L 500.2500, L100.0100, L501.5200 #### [facility] [address] [place], [address] Bilirubin.direct [Mass/Vol] 0.14 mg/dL Normal 0.00-0.30 [facility] Comment on above: Performed By: #### L 500.2500, L100.0100, L501.5200 #### [facility] [address] [place], [address] Globulin (S) [Mass/Vol] 3.6 g/dL Normal 2.2-4.2 [facility] Comment on above: Performed By: #### L 500.2500, L100.0100, L501.5200 #### [facility] [address] [place], [address] T PROT 7.4 g/dL Normal 6.4-8.2 [facility] Comment on above: Performed By: #### L 500.2500, L100.0100, L501.5200 #### [facility] [address] [place], [address] Pelvis 1 or 2 Viewson 2023 Pelvis 1 or 2 Views [facility] Imaging Services [address] [place] [address] Pelvis 1 or 2 Views MR#: [id number] Acct: [id number] Name: WOODY NI Rep #: [id number] : 1960 M 64 From: Beto Urena MD PCP: Dr. Jani Quezada MD Status: REG ER Study: Pelvis 1 or 2 Views Date of Exam: 05/02/24 Exam# [id number] Ordering Dr: Daniel Knapp DO [id number] INDICATION: fall EXAMINATION/TECHNIQUE: X-RAY - XR Pelvis [...] Dr. Jani Quezada MD; Daniel Knapp DO Interior Design Teacher: Signed Normal [facility] Spine Cervical without Contr ason 05-02-2024 Spine Cervical without Contras [facility] Imaging Services [address] [place], [place] [id number] Spine Cervical without Contras MR#: [id number] Acct: [id number] Name: WOODY NI Rep #: [id number] : 1960 M 64 From: Beto Urena MD PCP: Dr. Jani Quezada MD Status: REG ER Study: Spine Cervical without Contras Date of Exam: 0 05/02/24 Exam# [id number] Ordering Dr: Daniel Knapp DO [id number] INDICATION: fall EXAMINATION: CT CERVICAL SPINE - [...] 0:18 EDT Reading Location ID and State: [facility] / [place] Tel , Service support , CC: Dr. Jani Quezada MD; Daniel Knapp DO Interior Design Teacher: Signed Normal [facility] CARECOORDon 05-01-2024 CARECOBARAGA Normal [facility] CARECOORDon 04-30-2024 CARECOBARAGA Normal [facility] IDNon 04-30-2024 IDN Normal [facility] Laboratory - Chemistry and C hemistry - challengeon 04-30-2024 Glucose [Mass/Vol] 134 mg/dL High 70 - 100 mg/dL [facility] Glucose [Mass/Vol] 137 mg/dL High 70 - 100 mg/dL [facility] No Panel Informationon 04-30 Interpretation and review of laboratory results Abnormal [facility] Performed by: [facility], [address] [facility] [address] CLIA ID: [id number] [facility] Interpretation and review of laboratory results Abnormal [facility] Performed by: [facility], [address] [facility] [address] CLIA ID: [id number] [facility] Nursing Noteon 04-30-2024 Nursing Note AVS medication list and follow up appointment reviewed with pt. Pt medications sent to [facility] per his request. Pt states understanding. . [facility] [id number] 04-29-2024 [id number] Pt refusing home car e services. PACC signing off. Normal [facility] [id number] Farm Advisor following case for Discharge Needs. IF denied SNF placement - will follow for discharge plan for possibly home with home care. [facility] CARECOORDon 04-29-2024 CARECOBARAGA Normal [facility] CAREMTORD Normal [facility] CARECOBARAGA Normal [facility] Normal [facility] Laboratory - Chemistry and C hemistry - challengeon 04-29-2024 Glucose [Mass/Vol] 135 mg/dL High 70 - 100 mg/dL [facility] Glucose [Mass/Vol] 115 mg/dL High 70 - 100 mg/dL [facility] Glucose [Mass/Vol] 130 mg/dL High 70 - 100 mg/dL [facility] Glucose [Mass/Vol] 103 mg/dL High 70 - 100 mg/dL [facility] No Panel Informationon 04-29 Interpretation and review of laboratory results Abnormal [facility] Performed by: [facility], [address] [facility] [address] CLIA ID: [id number] [facility] Interpretation and review of laboratory results Abnormal [facility] Performed by: [facility], [address] [place], [facility] [place] [address] CLIA ID: [id number] [facility] Interpretation and review of laboratory results Abnormal [facility] Performed by: [facility], [address] [place], [facility] [place] [address] CLIA ID: [id number] [facility] Interpretation and review of laboratory results Abnormal [facility] Performed by: [facility], [address] [place], [facility] [place] [address] CLIA ID: [id number] [facility] Progress Noteon 04-29-2024 Progress Note Normal [facility] Progress Note Normal [facility] Progress Note Normal [facility] Progress Note Nutrition update completed. Chart reviewed. Patient continues as a level 1 for nutrition care. Normal [facility] Progress Note Normal [facility] CARECOORDon 04-28-2024 CARECOORD Reviewed careport an d continue to await auth. . Normal [facility] CARECOORD Normal [facility] Laboratory - Chemistry and C hemistry - challengeon 04-28-2024 Glucose [Mass/Vol] 106 mg/dL High 70 - 100 mg/dL [facility] Glucose [Mass/Vol] 78 mg/dL 70 - 100 mg/dL [facility] Glucose [Mass/Vol] 96 mg/dL 70 - 100 mg/dL [facility] No Panel Informationon 04-28 Interpretation and review of laboratory results Abnormal [facility] Performed by: [facility], [address] [place], [facility] [place] [address] CLIA ID: [id number] [facility] Interpretation and review of laboratory results Normal [facility] Performed by: [facility], [address] [place], [facility] [place] [address] CLIA ID: [id number] [facility] Interpretation and review of laboratory results Normal [facility] Performed by: [facility], [address] [place], [facility] [place] [address] CLIA ID: [id number] [facility] Progress Noteon 04-28-2024 Progress Note Normal [facility] Progress Note Normal [facility] Progress Note Normal [facility] Progress Note Normal [facility] Progress Note Normal [facility] CARECOORDon 04-27-2024 CARECOORD Normal [facility] CARECOORD Normal [facility] CARECOORD Normal [facility] CARECOORD Sent updated notes lulu Rhodes via Careport per TCC request. Await review and response regarding ability to accept. TCC notified. Normal [facility] CBC W Auto Differential pane l (Bld)on 04-27-2024 Basophils (Bld) [#/Vol] 0.0 10*3/uL 0.0 - 0.2 10*3/uL [facility] Basophils/100 WBC (Bld) 0.6 % 0.0 - 2.0 % [facility] Eosinophils (Bld) [#/Vol] 0.3 10*3/uL 0.0 - 0.5 10*3/uL [facility] Eosinophils/100 WBC (Bld) 4.7 % 0.0 - 6.0 % [facility] Erythrocyte distribution width (RBC) [Ratio] 13.7 % 11.5 - 15.0 % [facility] Hematocrit (Bld) [Volume fraction] 34.2 % Low 40.0 - 52.0 % [facility] Hemoglobin (Bld) [Mass/Vol] 11.2 g/dL Low 13.0 - 18.0 g/dL [facility] Immature granulocytes (Bld) [#/Vol] 0.1 10*3/uL High NINF - 0.1 10*3/uL [facility] Immature granulocytes/100 WBC (Bld) 0.8 % 0.0 - 2.0 % [facility] Interpretation and review of laboratory results Abnormal [facility] IPF [address] [facility] Lymphocytes (Bld) [#/Vol] 2.5 10*3/uL 1.0 - 4.3 10*3/uL [facility] Lymphocytes/100 WBC (Bld) 38.4 % 15.0 - 45.0 % [facility] MCH (RBC) [Entitic mass] 30.4 pg 26.0 - 34.[address] [facility] MCHC (RBC) [Mass/Vol] 32.7 % 30.5 - 36.0 % [facility] MCV (RBC) [Entitic vol] 92.9 fL 77.0 - 99.[address] [facility] Monocytes (Bld) [#/Vol] 0.6 10*3/uL 0.0 - 0.9 10*3/uL [facility] Monocytes/100 WBC (Bld) 8.9 % 5.0 - 13.0 % [facility] Neutrophils (Bld) [#/Vol] 3.0 10*3/uL 1.8 - 7.5 10*3/uL [facility] Neutrophils/100 WBC (Bld) 46.6 % 38.0 - 82.0 % [facility] Nucleated RBC/100 WBC (Bld) [Ratio] 0.0 % [facility] Platelet mean volume (Bld) [Entitic vol] 9.7 fL 9.0 - 12.[address] [facility] Platelets (Bld) [#/Vol] 105 10*3/uL Low 140 - 440 10*3/uL [facility] RBC (Bld) [#/Vol] 3.68 10*6/uL Low 4.40 - 5.9 0 10*6/uL [facility] WBC (Bld) [#/Vol] 6.4 10*3/uL 3.6 - 10.7 10*3/uL [facility] CBC WITH AUTO DIFFERENTIALon 04-27-2024 Basophils (Bld) [#/Vol] 0.0 10*3/uL Normal 0.0-0.2 [facility] Comment on above: Performed By: #### L [id number] ####Fur Comber: TRESSA SANTIZO ([id number])[facility] [place] [address] Basophils/100 WBC (Bld) 0.6 % Normal 0.0-2.0 [facility] Comment on above: Performed By: #### L [id number] ####Fur Comber: TRESSA SANTIZO ([id number])[facility] ([facility])[address] Eosinophils (Bld) [#/Vol] 0.3 10*3/uL Normal 0.0-0.5 [facility] Comment on above: Performed By: #### L [id number] ####Fur Comber: TRESSA SANTIZO ([id number])[facility] [place] ([facility])[address] Eosinophils/100 WBC (Bld) 4.7 % Normal 0.0-6.0 [facility] Comment on above: Performed By: #### L [id number] ####Fur Comber: TRESSA SANTIZO ([id number])[facility] Erythrocyte distribution width (RBC) [Ratio] 13.7 % Normal 11.5-15.0 [facility] Comment on above: Performed By: #### L [id number] ####Fur Comber: TRESSA SANTIZO ([id number])[facility] ([facility])[address] Hematocrit (Bld) [Volume fraction] 34.2 % Low 40.0-52.0 [facility] Comment on above: Performed By: #### L [id number] ####Fur Comber: TRESSA SANTIZO ([id number])[facility] ([facility])[address] [place] [address] Hemoglobin (Bld) [Mass/Vol] 11.2 g/dL Low 13.0-18.0 [facility] Comment on above: Performed By: #### L [id number] ####Fur Comber: TRESSA SANTIZO ([id number])[facility] [place] ([facility])[address] IMMATURE GRANS % 0.8 % Normal 0.0-2.0 [facility] Comment on above: Performed By: #### L [id number] ####Fur Comber: TRESSA SANTIZO ([id number])[facility] ([facility])[address] IMMATURE GRANS ABSOLUTE 0.1 10*3/uL High <0.1 [facility] Comment on above: Performed By: #### L [id number] ####Fur Comber: TRESSA SANTIZO ([id number])[facility] ([facility])[address] IPF 3 Normal [facility] Comment on above: Performed By: #### L [id number] ####Fur Comber: TRESSA SANTIZO ([id number])[facility] ([facility])[address] Lymphocytes (Bld) [#/Vol] 2.5 10*3/uL Normal 1.0-4.3 [facility] Comment on above: Performed By: #### L [id number] ####Fur Comber: TRESSA SANTIZO ([id number])[facility] ([facility])[address] Lymphocytes/100 WBC (Bld) 38.4 % Normal 15.0-45.0 [facility] Comment on above: Performed By: #### L [id number] ####Fur Comber: TRESSA SANTIZO ([id number])[facility] MCH (RBC) [Entitic mass] 30.4 pg Normal 26.0-34.0 [facility] Comment on above: Performed By: #### L [id number] ####Fur Comber: TRESSA SANTIZO ([id number])ST. [facility] [place] [address] MCHC 32.7 % Normal 30.5-36.0 [facility] Comment on above: Performed By: #### L [id number] ####Fur Comber: TRESSA SANTIZO ([phone])[facility] ([facility])[address] MCV (RBC) [Entitic vol] 92.9 fL Normal 77.0-99.0 [facility] Comment on above: Performed By: #### L [id number] ####Fur Comber: TRESSA SANTIZO ([id number])[facility] [place] (SB[facility])[address] Monocytes (Bld) [#/Vol] 0.6 10*3/uL Normal 0.0-0.9 [facility] Comment on above: Performed By: #### L [id number] ####Fur Comber: TRESSA SANTIZO ([id number])[facility] [place] (SBHL[facility])[address] Monocytes/100 WBC (Bld) 8.9 % Normal 5.0-13.0 [facility] Comment on above: Performed By: #### L [id number] ####Fur Comber: TRESSA SANTIZO ([id number])[facility] [place] (SBHL[facility])[address] NEUTROPHILS ABSOLUTE 3.0 10*3/uL Normal 1.8-7.5 [facility] Comment on above: Performed By: #### L [id number] ####Fur Comber: TRESSA SANTIZO ([id number])[facility] [place] (SBHL[facility])[address] Neutrophils/100 WBC (Bld) 46.6 % Normal 38.0-82.0 [facility] Comment on above: Performed By: #### L [id number] ####Fur Comber: TRESSA SANTIZO ([id number])[facility] [place] ([facility])[address] NRBC 0.0 /100 WBCs Normal 0.0-2.0 [facility] Comment on above: Performed By: #### L [id number] ####Fur Comber: TRESSA SANTIZO ([id number])[facility] [place] ([facility])[address] Platelet mean volume (Bld) [Entitic vol] 9.7 fL Normal 9.0-12.7 [facility] Comment on above: Performed By: #### L [id number] ####Fur Comber: TRESSA SANTIZO ([phone])[facility] (SB[facility])[address] Platelets (Bld) [#/Vol] 105 10*3/uL Low 140-440 [facility] Comment on above: Performed By: #### L [id number] ####Fur Comber: TRESSA SANTIZO ([id number])[facility] [place] ([facility])[address] RBC (Bld) [#/Vol] 3.68 10*6/uL Low 4.40-5.90 [facility] Comment on above: Performed By: #### L [id number] ####Fur Comber: TRESSA SANTIZO ([id number])[facility] [place] ([facility])[address] WBC (Bld) [#/Vol] 6.4 10*3/uL Normal 3.6-10.7 [facility] Comment on above: Performed By: #### L [id number] ####Fur Comber: TRESSA SANTIZO ([id number])[facility] [place] ([facility]HL[facility])[address] COMPREHENSIVE METABOLIC PANE Peter 04-27-2024 Albumin [Mass/Vol] 3.9 g/dL Normal 3.5-5.0 [facility] Comment on above: Performed By: #### L [id number] ####Fur Comber: TRESSA SANTIZO ([id number])[facility] [place] ([facility])[address] ALP [Catalytic activity/Vol] 45 U/L Normal 38-126 [facility] Comment on above: Performed By: #### L [id number] ####Fur Comber: TRESSA SANTIZO ([id number])[facility] [place] ([facility])[address] ALT [Catalytic activity/Vol] 19 U/L Normal 0-49 [facility] Comment on above: Performed By: #### L [id number] ####Fur Comber: TRESSA SANTIZO ([id number])[facility] (HLAB)[address] Anion gap [Moles/Vol] 7 mmol/L Normal 3-13 [facility] Comment on above: Performed By: #### L [id number] ####Fur Comber: TRESSA SANTIZO ([id number])[facility] ([facility])[address] AST [Catalytic activity/Vol] 29 U/L Normal 15-46 [facility] Comment on above: Performed By: #### L [id number] ####Fur Comber: TRESSA SANTIZO ([id number])[facility] Bilirubin [Mass/Vol] 0.4 mg/dL Normal 0.2-1.3 [facility] Comment on above: Performed By: #### L [id number] ####Fur Comber: TRESSA SANTIZO ([id number])[facility] Calcium [Mass/Vol] 9.2 mg/dL Normal 8.4-10.4 [facility] Comment on above: Performed By: #### L [id number] ####Fur Comber: TRESSA SANTIZO ([id number])[facility] [place] [address] [place] Chloride [Moles/Vol] 100 mmol/L Normal 98-107 [facility] Comment on above: Performed By: #### L [id number] ####Fur Comber: TRESSA SANTIZO ([id number])[facility] ([facility])[address] CO2 [Moles/Vol] 25 mmol/L Normal 22-30 [facility] Comment on above: Performed By: #### L [id number] ####Fur Comber: TRESSA SANTIZO ([id number])[facility] [place] ([facility])[address] Creatinine [Mass/Vol] 0.85 mg/dL Normal 0.66-1.25 [facility] Comment on above: Performed By: #### L [id number] ####Fur Comber: TRESSA SANTIZO ([id number])[facility] (SB[facility])[address] GLOMERULAR FILTRATION RATE ML/MIN/1.73 SQ M.PREDICTED >90.0 Normal >60.0 [facility] Comment on above: Result Comment: Calc ulation based on the Chronic Kidney Disease Epidemiology Collaboration (CKD-EPI) equation refit without adjustment for raceORDER COMMENTS:Slightly Hemolyzed Performed By: #### L [id number] ####Fur Comber: TRESSA SANTIZO ([id number])[facility] ([facility])[address] Glucose [Mass/Vol] 73 mg/dL Normal 70-100 [facility] Comment on above: Performed By: #### L [id number] ####Fur Comber: TRESSA SANTIZO ([id number])[facility] ([facility])[address] [place] [address] [place] Potassium [Moles/Vol] 4.1 mmol/L Normal 3.5-5.1 [facility] Comment on above: Performed By: #### L [id number] ####Fur Comber: TRESSA SANTIZO ([id number])[facility] (SBHLAB)[address] [place] [address] [place] Protein [Mass/Vol] 6.7 g/dL Normal 6.3-8.2 [facility] Comment on above: Performed By: #### L [id number] ####Fur Comber: TRESSA SANTIZO ([id number])[facility] ([facility])[address] [place] [address] [place] Sodium [Moles/Vol] 132 mmol/L Low 135-145 [facility] Comment on above: Performed By: #### L [id number] ####Fur Comber: TRESSA SANTIZO ([id number])[facility] ([facility])[address] Urea nitrogen [Mass/Vol] 9 mg/dL Normal 9-[address] [facility] Comment on above: Performed By: #### L [id number] ####Fur Comber: TRESSA SANTIZO ([id number])[facility] ([facility])[address] Comprehensive metabolic 1998 panelon 04-27-2024 Albumin [Mass/Vol] 3.9 g/dL 3.5 - 5.0 g/dL [facility] ALP [Catalytic activity/Vol] 45 U/L 38 - 126 U/L [facility] ALT [Catalytic activity/Vol] 19 U/L 0 - 49 U/L [facility] Anion gap [Moles/Vol] 7 mmol/L 3 - 13 mmol/L [facility] AST [Catalytic activity/Vol] 29 U/L 15 - 46 U/L [facility] Bilirubin [Mass/Vol] 0.4 mg/dL 0.2 - 1 .3 mg/dL [facility] Calcium [Mass/Vol] 9.2 mg/dL 8.4 - 10. 4 mg/dL [facility] Chloride [Moles/Vol] 100 mmol/L 98 - 10 7 mmol/L [facility] CO2 [Moles/Vol] 25 mmol/L 22 - 30 mmol/L [facility] Creatinine [Mass/Vol] 0.85 mg/dL 0.66 - 1.25 mg/dL [facility] GFR/1.73 sq M.predicted MDRD (S/P/Bld) [Vol rate/Area] - PINF [facility] Comment on above: Calculation based on the Chronic Kidney Disease Epidemiology Collaboration (CKD-EPI) equation refit without adjustment for race Glucose [Mass/Vol] 73 mg/dL 70 - 100 mg/dL [facility] Interpretation and review of laboratory results Abnormal [facility] Potassium [Moles/Vol] 4.1 mmol/L 3.5 - 5.1 mmol/L [facility] Protein [Mass/Vol] 6.7 g/dL 6.3 - 8.2 g/dL [facility] Sodium [Moles/Vol] 132 mmol/L Low 135 - 145 mmol/L [facility] Urea nitrogen [Mass/Vol] 9 mg/dL 9 - 20 mg/dL [facility] Slightly Hemolyzed [facility] Laboratory - Chemistry and C hemistry - challengeon 04-27-2024 Glucose [Mass/Vol] 107 mg/dL High 70 - 100 mg/dL [facility] Glucose [Mass/Vol] 111 mg/dL High 70 - 100 mg/dL [facility] Glucose [Mass/Vol] 110 mg/dL High 70 - 100 mg/dL [facility] Glucose [Mass/Vol] 76 mg/dL 70 - 100 mg/dL [facility] No Panel Informationon 04-27 Interpretation and review of laboratory results Abnormal [facility] Performed by: [facility], [address] [facility], [facility] [place] [address] CLIA ID: [id number] [facility] Interpretation and review of laboratory results Abnormal [facility] Performed by: [facility], [address] [facility], [facility] [place] [address] CLIA ID: [id number] [facility] Interpretation and review of laboratory results Abnormal [facility] Performed by: [facility], [address] [facility], [facility] [place] [address] CLIA ID: [id number] [facility] Interpretation and review of laboratory results Normal [facility] Performed by: [facility], [address] [place], [facility] [place] [address] CLIA ID: [id number] [facility] Progress Noteon 04-27-2024 Progress Note Normal [facility] Progress Note Normal [facility] Progress Note Normal [facility] Progress Note Normal [facility] CARECOORDon 04-26-2024 [facility] unable to accept. [facility] able to accept and pt agreeable. Anticipate starting auth 04/27 Normal [facility] CARECOORD Normal [facility] CARECOORD Normal [facility] CBC W Auto Differential pane l (Bld)on 04-26-2024 Basophils (Bld) [#/Vol] 0.0 10*3/uL 0.0 - 0.2 10*3/uL [facility] Basophils/100 WBC (Bld) 0.5 % 0.0 - 2.0 % [facility] Eosinophils (Bld) [#/Vol] 0.2 10*3/uL 0.0 - 0.5 10*3/uL [facility] Eosinophils/100 WBC (Bld) 3.5 % 0.0 - 6.0 % [facility] Erythrocyte distribution width (RBC) [Ratio] 13.9 % 11.5 - 15.0 % [facility] Hematocrit (Bld) [Volume fraction] 34.3 % Low 40.0 - 52.0 % [facility] Hemoglobin (Bld) [Mass/Vol] 11.3 g/dL Low 13.0 - 18.0 g/dL [facility] Immature granulocytes (Bld) [#/Vol] 0.0 10*3/uL NINF - 0.1 10*3/uL [facility] Immature granulocytes/100 WBC (Bld) 0.7 % 0.0 - 2.0 % [facility] Interpretation and review of laboratory results Abnormal [facility] Lymphocytes (Bld) [#/Vol] 1.7 10*3/uL 1.0 - 4.3 10*3/uL [facility] Lymphocytes/100 WBC (Bld) 27.8 % 15.0 - 45.0 % [facility] MCH (RBC) [Entitic mass] 30.1 pg 26.0 - 34.[address] [facility] MCHC (RBC) [Mass/Vol] 32.9 % 30.5 - 36.0 % [facility] MCV (RBC) [Entitic vol] 91.5 fL 77.0 - 99.[address] [facility] Monocytes (Bld) [#/Vol] 0.5 10*3/uL 0.0 - 0.9 10*3/uL [facility] Monocytes/100 WBC (Bld) 7.4 % 5.0 - 13.0 % [facility] Neutrophils (Bld) [#/Vol] 3.6 10*3/uL 1.8 - 7.5 10*3/uL [facility] Neutrophils/100 WBC (Bld) 60.1 % 38.0 - 82.0 % [facility] Nucleated RBC/100 WBC (Bld) [Ratio] 0.0 % [facility] Platelet mean volume (Bld) [Entitic vol] 9.3 fL 9.0 - 12.[address] [facility] Platelets (Bld) [#/Vol] 123 10*3/uL Low 140 - 440 10*3/uL [facility] RBC (Bld) [#/Vol] 3.75 10*6/uL Low 4.40 - 5.9 0 10*6/uL [facility] WBC (Bld) [#/Vol] 6.1 10*3/uL 3.6 - 10.7 10*3/uL [facility] CBC WITH AUTO DIFFERENTIALon 04-26-2024 Basophils (Bld) [#/Vol] 0.0 10*3/uL Normal 0.0-0.2 [facility] Comment on above: Performed By: #### L [id number] ####Fur Comber: TRESSA SANTIZO ([id number])[facility] [place] [address] Basophils/100 WBC (Bld) 0.5 % Normal 0.0-2.0 [facility] Comment on above: Performed By: #### L [id number] ####Fur Comber: TRESSA SANTIZO ([id number])[facility] [place] [address] Eosinophils (Bld) [#/Vol] 0.2 10*3/uL Normal 0.0-0.5 [facility] Comment on above: Performed By: #### L [id number] ####Fur Comber: TRESSA SANTIZO ([id number])[facility] Eosinophils/100 WBC (Bld) 3.5 % Normal 0.0-6.0 [facility] Comment on above: Performed By: #### L [id number] ####Fur Comber: TRESSA SANTIZO ([id number])[facility] [place] [address] Erythrocyte distribution width (RBC) [Ratio] 13.9 % Normal 11.5-15.0 [facility] Comment on above: Performed By: #### L [id number] ####Fur Comber: TRESSA DARLYN ([id number])[facility] [place] (SBHLAB)[address] Hematocrit (Bld) [Volume fraction] 34.3 % Low 40.0-52.0 [facility] Comment on above: Performed By: #### L [id number] ####Fur Comber: TRESSA DARLYN ([id number])[facility] (SBHLAB)[address] Hemoglobin (Bld) [Mass/Vol] 11.3 g/dL Low 13.0-18.0 [facility] Comment on above: Performed By: #### L [id number] ####Fur Comber: TRESSA SANTIZO ([id number])[facility] [place] [address] IMMATURE GRANS % 0.7 % Normal 0.0-2.0 [facility] Comment on above: Performed By: #### L [id number] ####Fur Comber: TRESSA JONESScarJAVY ([id number])[facility] [place] [address] IMMATURE GRANS ABSOLUTE 0.0 10*3/uL Normal <0.1 [facility] Comment on above: Performed By: #### L [id number] ####Fur Comber: TRESSA CHRISJAVY ([id number])[facility] (SB[facility]AB)[address] [place] [address] Lymphocytes (Bld) [#/Vol] 1.7 10*3/uL Normal 1.0-4.3 [facility] Comment on above: Performed By: #### L [id number] ####Fur Comber: TRESSA CHRISJAVY ([id number])[facility] (SB[facility])[address] [place] [address] Lymphocytes/100 WBC (Bld) 27.8 % Normal 15.0-45.0 [facility] Comment on above: Performed By: #### L [id number] ####Fur Comber: TRESSA JONESScarJAVY ([id number])[facility] [place] (SB[facility])[address] MCH (RBC) [Entitic mass] 30.1 pg Normal 26.0-34.0 [facility] Comment on above: Performed By: #### L [id number] ####Fur Comber: TRESSA DARLYN ([phone])[facility] (SB[facility])[address] MCHC 32.9 % Normal 30.5-36.0 [facility] Comment on above: Performed By: #### L [id number] ####Fur Comber: TRESSA DARLYN ([phone])[facility] (SB[facility])[address] [place] [address] MCV (RBC) [Entitic vol] 91.5 fL Normal 77.0-99.0 [facility] Comment on above: Performed By: #### L [id number] ####Fur Comber: TRESSA CHRISJAVY ([id number])[facility] ([facility])[address] Monocytes (Bld) [#/Vol] 0.5 10*3/uL Normal 0.0-0.9 [facility] Comment on above: Performed By: #### L [id number] ####Fur Comber: TRESSA SANTIZO ([id number])[facility] ([facility])[address] Monocytes/100 WBC (Bld) 7.4 % Normal 5.0-13.0 [facility] Comment on above: Performed By: #### L [id number] ####Fur Comber: TRESSA SANTIZO ([id number])[facility] ([facility])[address] NEUTROPHILS ABSOLUTE 3.6 10*3/uL Normal 1.8-7.5 [facility] Comment on above: Performed By: #### L [id number] ####Fur Comber: TRESSARAY SANTIZO ([phone])[facility]ENTEROctavia [facility] (SB[facility]AB)[address] Neutrophils/100 WBC (Bld) 60.1 % Normal 38.0-82.0 [facility] Comment on above: Performed By: #### L [id number] ####Fur Comber: TRESSA SANTIZO ([id number])[facility]ENTEROctavia [facility] (SB[facility]AB)[address] NRBC 0.0 /100 WBCs Normal 0.0-2.0 [facility] Comment on above: Performed By: #### L [id number] ####Fur Comber: TRESSA SANTIZO ([id number])[facility]ENTEROctavia [facility] (SB[facility])[address] Platelet mean volume (Bld) [Entitic vol] 9.3 fL Normal 9.0-12.7 [facility] Comment on above: Performed By: #### L [id number] ####Fur Comber: TRESSARAY SANTIZO ([id number])[facility]ENTEROctavia [facility] (SB[facility])[address] Platelets (Bld) [#/Vol] 123 10*3/uL Low 140-440 [facility] Comment on above: Performed By: #### L [id number] ####Fur Comber: TRESSA DARLYN ([id number])[facility]ENTEROctavia [facility] ([facility])[address] RBC (Bld) [#/Vol] 3.75 10*6/uL Low 4.40-5.90 [facility] Comment on above: Performed By: #### L [id number] ####Fur Comber: TRESSA DARLYN ([id number])[facility]ENTEROctavia [facility] ([facility])[address] WBC (Bld) [#/Vol] 6.1 10*3/uL Normal 3.6-10.7 [facility] Comment on above: Performed By: #### L [id number] ####Fur Comber: TRESSA SANTIZO ([id number])[facility]ENTEROctavia HER[facility] (SBHLAB)[address] [place] [address] [place] IDNon 04-26-2024 IDN Normal [facility] IDN Normal [facility] Laboratory - Chemistry and C hemistry - challengeon 04-26-2024 Glucose [Mass/Vol] 102 mg/dL High 70 - 100 mg/dL [facility] Glucose [Mass/Vol] 91 mg/dL 70 - 100 mg/dL [facility] Glucose [Mass/Vol] 107 mg/dL High 70 - 100 mg/dL [facility] Glucose [Mass/Vol] 99 mg/dL 70 - 100 mg/dL [facility] No Panel Informationon 04-26 Interpretation and review of laboratory results Abnormal [facility]formed by: [facility], [address] [place] [address] CLIA ID: [id number] [facility] Interpretation and review of laboratory results Normal [facility] Performed by: [facility], [address] [place] [address] CLIA ID: [id number] [facility] Interpretation and review of laboratory results Abnormal [facility] Performed by: [facility], [address] [place] [address] CLIA ID: [id number] [facility] Interpretation and review of laboratory results Normal [facility] Performed by: [facility], [address] [place] [address] CLIA ID: [id number] [facility] Nursing Noteon 04-26-2024 Nursing Note Normal [facility] Progress Noteon 04-26-2024 Progress Note Normal [facility] Progress Note Normal [facility] Progress Note Normal [facility] Progress Note Normal [facility] BASIC METABOLIC PANELon Anion gap [Moles/Vol] 6 mmol/L Normal 3-13 [facility] Comment on above: Performed By: #### L AB15 ####Fur Comber: TRESSA SANTIZO ([id number])[facility]ENTER[facility] HER[facility] (SBHLAB)[address] Calcium [Mass/Vol] 9.2 mg/dL Normal 8.4-10.4 [facility] Comment on above: Performed By: #### L AB15 ####Fur Comber: TRESSA SANTIZO ([id number])[facility] [place] ([facility])[address] Chloride [Moles/Vol] 100 mmol/L Normal 98-107 [facility] Comment on above: Performed By: #### L AB15 ####Fur Comber: TRESSA SANTIZO ([id number])[facility] [place] ([facility])[address] CO2 [Moles/Vol] 25 mmol/L Normal 22-30 [facility] Comment on above: Performed By: #### L AB15 ####Fur Comber: TRESSA SANTIZO ([id number])[facility] ([facility])[address] Creatinine [Mass/Vol] 0.89 mg/dL Normal 0.66-1.25 [facility] Comment on above: Performed By: #### L AB15 ####Fur Comber: TRESSA SANTIZO ([id number])[facility] ([facility])[address] GLOMERULAR FILTRATION RATE ML/MIN/1.73 SQ M.PREDICTED >90.0 Normal >60.0 [facility] Comment on above: Result Comment: Calc ulation based on the Chronic Kidney Disease Epidemiology Collaboration (CKD-EPI) equation refit without adjustment for race Performed By: #### L AB15 ####Fur Comber: TRESSA SANTIZO ([phone])[facility] [place] (SBHLAB)[address] [place] [address] [place] Glucose [Mass/Vol] 114 mg/dL High 70-100 [facility] Comment on above: Performed By: #### L AB15 ####Fur Comber: TRESSA SANTIZO ([id number])[facility] (SBHLAB)[address] Potassium [Moles/Vol] 4.0 mmol/L Normal 3.5-5.1 [facility] Comment on above: Performed By: #### L AB15 ####Fur Comber: TRESSA SANTIZO ([id number])[facility] (SBHLAB)[address] Sodium [Moles/Vol] 131 mmol/L Low 135-145 [facility] Comment on above: Performed By: #### L AB15 ####Fur Comber: TRESSA SANTIZO ([id number])[facility] (SBHLAB)[address] Urea nitrogen [Mass/Vol] 10 mg/dL Normal 9-20 [facility] Comment on above: Performed By: #### L [id number] ####Fur Comber: TRESSA CHRISJAVY ([id number])[facility] (SBHLAB)[address] [place] [address] Basic metabolic 1998 panelon 04-25-2024 Anion gap [Moles/Vol] 6 mmol/L 3 - 13 mmol/L [facility] Calcium [Mass/Vol] 9.2 mg/dL 8.4 - 10. 4 mg/dL [facility] Chloride [Moles/Vol] 100 mmol/L 98 - 10 7 mmol/L [facility] CO2 [Moles/Vol] 25 mmol/L 22 - 30 mmol/L [facility] Creatinine [Mass/Vol] 0.89 mg/dL 0.66 - 1.25 mg/dL [facility] GFR/1.73 sq M.predicted MDRD (S/P/Bld) [Vol rate/Area] - PINF [facility] Comment on above: Calculation based on the Chronic Kidney Disease Epidemiology Collaboration (CKD-EPI) equation refit without adjustment for race Glucose [Mass/Vol] 114 mg/dL High 70 - 100 mg/dL [facility] Interpretation and review of laboratory results Abnormal [facility] Potassium [Moles/Vol] 4.0 mmol/L 3.5 - 5.1 mmol/L [facility] Sodium [Moles/Vol] 131 mmol/L Low 135 - 145 mmol/L [facility] Urea nitrogen [Mass/Vol] 10 mg/dL 9 - 20 mg/dL [facility] CARECOORDon 04-25-2024 CARECOORD Normal [facility] CBC W Auto Differential pane l (Bld)Ordered By: Philip Medrano on 04-25-2024 Erythrocyte distribution width (RBC) [Ratio] 14.1 % 11.5 - 15.0 % [facility] Hematocrit (Bld) [Volume fraction] 35.6 % Low 40.0 - 52.0 % [facility] Hemoglobin (Bld) [Mass/Vol] 11.7 g/dL Low 13.0 - 18.0 g/dL [facility] Interpretation and review of laboratory results Abnormal [facility] MCH (RBC) [Entitic mass] 30.2 pg 26.0 - 34.[address] [facility] MCHC (RBC) [Mass/Vol] 32.9 % 30.5 - 36.0 % [facility] MCV (RBC) [Entitic vol] 91.8 fL 77.0 - 99.[address] [facility] Platelet mean volume (Bld) [Entitic vol] 8.7 fL Low 9.0 - 12.[address] [facility] Platelets (Bld) [#/Vol] 127 10*3/uL Low 140 - 440 10*3/uL [facility] RBC (Bld) [#/Vol] 3.88 10*6/uL Low 4.40 - 5.9 0 10*6/uL [facility] WBC (Bld) [#/Vol] 8.4 10*3/uL 3.6 - 10.7 10*3/uL [facility] CBC WITH AUTO DIFFERENTIALon 04-25-2024 Erythrocyte distribution width (RBC) [Ratio] 14.1 % Normal 11.5-15.0 [facility] Comment on above: Performed By: #### L [id number], [id number] ####Fur Comber: TRESSA SANTIZO ([phone])[facility] ([facility])[address] [place] [address] Hematocrit (Bld) [Volume fraction] 35.6 % Low 40.0-52.0 [facility] Comment on above: Performed By: #### L [id number], [id number] ####Fur Comber: TRESSA SANTIZO ([phone])[facility]ENTEROctavia [facility] (SBHLAB)[address] Hemoglobin (Bld) [Mass/Vol] 11.7 g/dL Low 13.0-18.0 [facility] Comment on above: Performed By: #### L [id number], [id number] ####Fur Comber: TRESSA SANTIZO ([phone])[facility] (SBHLAB)[address] MCH (RBC) [Entitic mass] 30.2 pg Normal 26.0-34.0 [facility] Comment on above: Performed By: #### L [id number], [id number] ####Fur Comber: TRESSA CHRISJAVY ([id number])[facility] (HLAB)[address] MCHC 32.9 % Normal 30.5-36.0 [facility] Comment on above: Performed By: #### L [id number], [id number] ####Fur Comber: TRESSA SANTIZO ([id number])[facility] (SBHLAB)[address] MCV (RBC) [Entitic vol] 91.8 fL Normal 77.0-99.0 [facility] Comment on above: Performed By: #### L [id number], [id number] ####Fur Comber: TRESSA SANTIZO ([id number])[facility] (SBHLAB)[address] Platelet mean volume (Bld) [Entitic vol] 8.7 fL Low 9.0-12.7 [facility] Comment on above: Performed By: #### L [id number], [id number] ####Fur Comber: TRESSA SANTIZO ([phone])[facility] (SBHLAB)[address] Platelets (Bld) [#/Vol] 127 10*3/uL Low 140-440 [facility] Comment on above: Performed By: #### L [id number], [id number] ####Fur Comber: TRESSA SANTIZO ([id number])[facility] CENTEROctavia HERNANDEZ (SBHLAB)[address] [place] [address] RBC (Bld) [#/Vol] 3.88 10*6/uL Low 4.40-5.90 [facility] Comment on above: Performed By: #### L [id number], [id number] ####Fur Comber: TRESSA SANTIZO ([phone])[facility]ENTEROctavia HERNANDEZ (SBHLAB)[address] [place] [address] WBC (Bld) [#/Vol] 8.4 10*3/uL Normal 3.6-10.7 [facility] Comment on above: Performed By: #### L [id number], [id number] ####Fur Comber: TRESSA SANTIZO ([id number])[facility]ENTEROctavia HERNANDEZ (SBHLAB)[address] [place] [address] Consulton 04-25-2024 Consult Normal [facility] Consult Normal [facility] IDNon 04-25-2024 IDN Normal [facility] Laboratory - Chemistry and C hemistry - challengeon 04-25-2024 Glucose [Mass/Vol] 105 mg/dL High 70 - 100 mg/dL [facility] Glucose [Mass/Vol] 128 mg/dL High 70 - 100 mg/dL [facility] Glucose [Mass/Vol] 104 mg/dL High 70 - 100 mg/dL [facility] Glucose [Mass/Vol] 110 mg/dL High 70 - 100 mg/dL [facility] Laboratory - Hematology and Cell countson 04-25-2024 Band form neutrophils (Bld) [#/Vol] 0.6 10*3/uL High NINF - 0.0 10*3/uL [facility] Band form neutrophils/100 WBC (Bld) 7 % High NINF - 0 % [facility] Eosinophils (Bld) [#/Vol] 0.2 10*3/uL 0.0 - 0.5 10*3/uL [facility] Eosinophils/100 WBC (Bld) 2 % 0 - 6 % [facility] Lymphocytes (Bld) [#/Vol] 0.2 10*3/uL Low 1.0 - 4.3 10*3/uL [facility] Lymphocytes/100 WBC (Bld) 2 % Low 15 - 45 % [facility] Monocytes (Bld) [#/Vol] 0.1 10*3/uL 0.0 - 0.9 10*3/uL [facility] Monocytes/100 WBC (Bld) 1 % Low 5 - 13 % [facility] Neutrophils (Bld) [#/Vol] 8.0 10*3/uL High 1.8 - 7.5 10*3/uL [facility] RBC morphology finding Nom (Bld) Normal [facility] Segmented neutrophils/100 WBC (Bld) 88 % High 38 - 82 % [facility] MANUAL DIFFERENTIAL (CELLAVI ILIANA)on 04-25-2024 BAND NEUTROPHILS TOTAL PER COUNTED LEUKOCYTES BY MANUAL COUNT 7 Normal [facility] Comment on above: Performed By: #### L [id number], [id number] ####Fur Comber: TRESSA SANTIZO ([id number])[facility]A [place] (SBHLAB)[address] [place] [address] BANDS (10*3/UL) IN BLOOD-CELLAVISION 0.6 10*3/uL High <=0.0 [facility] Comment on above: Performed By: #### L [id number], [id number] ####Fur Comber: TRESSA SANTIZO ([phone])[facility]A [place] (SBHLAB)[address] [place] [address] [place] BASOPHILS TOTAL PER COUNTED LEUKOCYTES BY MANUAL COUNT Normal [facility] Comment on above: Performed By: #### L [id number], [id number] ####Fur Comber: TRESSA SANTIZO ([id number])[facility] [place] (SBHLAB)[address] [place] [address] [place] BLASTS TOTAL PER COUNTED LEUKOCYTES BY MANUAL COUNT Normal [facility] Comment on above: Performed By: #### L [id number], [id number] ####Fur Comber: TRESSA SANTIZO ([phone])[facility] [place] (SBHLAB)[address] [place] [address] [place] EOSINOPHILS (10*3/UL) IN BLOOD-CELLAVISION 0.2 10*3/uL Normal 0.0-0.5 [facility] Comment on above: Performed By: #### L [id number], [id number] ####Fur Comber: TRESSA CHRISJAVY ([id number])[facility] [place] (SBHLAB)[address] [place] [address] [place] EOSINOPHILS TOTAL PER COUNTED LEUKOCYTES BY MANUAL COUNT 2 High 0-1 [facility] Comment on above: Performed By: #### L [id number], [id number] ####Fur Comber: TRESSA OJEDACER ([phone])[facility] [place] (SBHLAB)[address] [place] [address] [place] EOSINOPHILS/100 LEUKOCYTES IN BLOOD-CELLAVISION 2 % Normal 0-6 [facility] Comment on above: Performed By: #### L [id number], [id number] ####Fur Comber: TRESSA CHRISJAVY ([phone])[facility]ENTERA BARBMOUNT[facility]ERN (SBHLAB)[address] [place] [address] [place] LYMPHOCYTES (10*3/UL) IN BLOOD-CELLAVISION 0.2 10*3/uL Low 1.0-4.3 [facility] Comment on above: Performed By: #### L [id number], [id number] ####Fur Comber: TRESSA SANTIZO ([id number])[facility] [place] (SBHLAB)[address] [place] [address] [place] LYMPHOCYTES TOTAL PER COUNTED LEUKOCYTES BY MANUAL COUNT 2 Normal [facility] Comment on above: Performed By: #### L [id number], [id number] ####Fur Comber: TRESSA CHRISJAVY ([id number])[facility] [place] (SBHLAB)[address] [place] [address] [place] LYMPHOCYTES/100 LEUKOCYTES IN BLOOD-CELLAVISION 2 % Low 15-45 [facility] Comment on above: Performed By: #### L [id number], [id number] ####Fur Comber: TRESSA SANTIZO ([id number])[facility] [place] (SBHLAB)[address] [place] [address] [place] METAMYELOCYTES TOTAL PER COUNTED LEUKOCYTES BY MANUAL COUNT Normal [facility] Comment on above: Performed By: #### L [id number], [id number] ####Fur Comber: TRESSA SANTIZO ([id number])[facility] [place] (SBHLAB)[address] [place] [address] [place] MONOCYTES (10*3/UL) IN BLOOD-CELLAVISION 0.1 10*3/uL Normal 0.0-0.9 [facility] Comment on above: Performed By: #### L [id number], [id number] ####Fur Comber: TRESSA SANTIZO ([id number])[facility] [place] (SBHLAB)[address] MONOCYTES TOTAL PER COUNTED LEUKOCYTES BY MANUAL COUNT 1 Normal [facility] Comment on above: Performed By: #### L [id number], [id number] ####Fur Comber: TRESSA SANTIZO ([id number])[facility] [place] (SBHLAB)[address] [place] [address] [place] MONOCYTES/100 LEUKOCYTES IN BLOOD-JOSE 1 % Low 5-13 [facility] Comment on above: Performed By: #### L [id number], [id number] ####Fur Comber: TRESSA SANTIZO ([id number])[facility] [place] (SBHLAB)[address] [place] [address] [place] MYELOCYTES COUNTED BY MANUAL COUNT Normal [facility] Comment on above: Performed By: #### L [id number], [id number] ####Fur Comber: TRESSA SANTIZO ([phone])[facility] [place] (SBHLAB)[address] [place] [address] [place] NEUTROPHILS BAND FORM/100 LEUKOCYTES IN BLOOD-CELLAVISI 7 % High <=0 [facility] Comment on above: Performed By: #### L [id number], [id number] ####Fur Comber: TRESSA [id number])[facility] [place] (SBHLAB)[address] [place] [address] [place] NEUTROPHILS TOTAL PER COUNTED LEUKOCYTES BY MANUAL COUNT [address] [facility] Comment on above: Performed By: #### L [id number], [id number] ####Fur Comber: TRESSA SANTIZO ([id number])[facility] [place] (SBHLAB)[address] [place] [address] [place] PROMYELOCYTES TOTAL PER COUNTED LEUKOCYTES BY MANUAL COUNT Normal [facility] Comment on above: Performed By: #### L [id number], [id number] ####Fur Comber: TRESSA SANTIZO ([id number])[facility] [place] (SBHLAB)[address] RBC MORPHOLOGY IN BLOOD Normal [facility] Comment on above: Performed By: #### L [id number], [id number] ####Fur Comber: TRESSA SANTIZO ([id number])[facility] [place] (SBHLAB)[address] [place] [address] [place] SEGMENTED NEUTROPHILS (10*3/UL) IN BLOOD-CELLAVISION 8.0 10*3/uL High 1.8-7.5 [facility] Comment on above: Performed By: #### L [id number], [id number] ####Fur Comber: TRESSA SANTIZO ([id number])[facility] [place] (SBHLAB)[address] [place] [address] [place] SEGMENTED NEUTROPHILS/100 LEUKOCYTES-CE 88 % High 38-82 [facility] Comment on above: Performed By: #### L [id number], [id number] ####Fur Comber: TRESSA SANTIZO ([phone])[facility] [place] (SBHLAB)[address] [place] [address] [place] UNCLASSIFIED CELLS TOTAL PER COUNTED LEUKOCYTES BY MANUAL COUNT [facility] Comment on above: Performed By: #### L [id number], [id number] ####Fur Comber: TRSESA SANTIZO ([id number])[facility] [place] (SBHLAB)[address] [place] [address] VARIANT LYMPHOCYTES TOTAL PER COUNTED LEUKOCYTES BY MANUAL COUNT Normal [facility] Comment on above: Performed By: #### L [id number], [id number] ####Fur Comber: TRESSA SANTIZO ([id number])[facility] (SBHLAB)[address] [place] [address] No Panel Informationon 04-25 Interpretation and review of laboratory results Abnormal [facility] Performed by: [facility], [address] [place] [address] CLIA ID: [id number] [facility] Interpretation and review of laboratory results Abnormal [facility] Performed by: [facility], [address] [place] [address] CLIA ID: [id number] [facility] Interpretation and review of laboratory results Abnormal [facility] Performed by: [facility], [address] [place] [address] CLIA ID: [id number] [facility] Interpretation and review of laboratory results Abnormal [facility] Performed by: [facility], [address] [place] [address] CLIA ID: [id number] [facility] Atypical Lymphocytes Manual [facility] Bands Manual 7 [facility] Basophils Manual [facility] Blasts Manual [facility] Eosinophils Manual 2 High 0 - [address] [facility] Interpretation and review of laboratory results Abnormal [facility] Lymphocytes Manual 2 [facility] Metamyelocytes Manual [facility] Monocytes Manual [address] [facility] Myelocytes Manual [facility] Neutrophils Manual [address] [facility] Promyelocytes Manual [facility] Unclassified Cells, Manual [facility] Nursing Noteon 04-25-2024 Nursing Note Normal [facility] Progress Noteon 04-25-2024 Progress Note Normal [facility] Progress Note Normal [facility] Progress Note Normal [facility] Progress Note Pt had a couple epis odes of emesis- yellow and undigested food. Zofran given and vitals assessed. Pt expresses that this is common for him to have emesis like this. Pt reported feeling better after IV Zofran was given. Normal [facility] CARECOORDon 04-24-2024 CARECOORD [address] [facility] CBC W Auto Differential pane l (Bld)Ordered By: Michael Quinn on 04-24-2024 Basophils (Bld) [#/Vol] 0.0 10*3/uL 0.0 - 0.2 10*3/uL [facility] Basophils/100 WBC (Bld) 0.9 % 0.0 - 2.0 % [facility] Eosinophils (Bld) [#/Vol] 0.1 10*3/uL 0.0 - 0.5 10*3/uL [facility] Eosinophils/100 WBC (Bld) 2.2 % 0.0 - 6.0 % [facility] Erythrocyte distribution width (RBC) [Ratio] 14.2 % 11.5 - 15.0 % [facility] Hematocrit (Bld) [Volume fraction] 33.1 % Low 40.0 - 52.0 % [facility] Hemoglobin (Bld) [Mass/Vol] 10.9 g/dL Low 13.0 - 18.0 g/dL [facility] Immature granulocytes (Bld) [#/Vol] 0.0 10*3/uL NINF - 0.1 10*3/uL [facility] Immature granulocytes/100 WBC (Bld) 0.2 % 0.0 - 2.0 % [facility] Interpretation and review of laboratory results Abnormal [facility] Lymphocytes (Bld) [#/Vol] 1.4 10*3/uL 1.0 - 4.3 10*3/uL [facility] Lymphocytes/100 WBC (Bld) 30.3 % 15.0 - 45.0 % [facility] MCH (RBC) [Entitic mass] 30.1 pg 26.0 - 34.[address] [facility] MCHC (RBC) [Mass/Vol] 32.9 % 30.5 - 36.0 % [facility] MCV (RBC) [Entitic vol] 91.4 fL 77.0 - 99.[address] [facility] Monocytes (Bld) [#/Vol] 0.3 10*3/uL 0.0 - 0.9 10*3/uL [facility] Monocytes/100 WBC (Bld) 7.6 % 5.0 - 13.0 % [facility] Neutrophils (Bld) [#/Vol] 2.6 10*3/uL 1.8 - 7.5 10*3/uL [facility] Neutrophils/100 WBC (Bld) 58.8 % 38.0 - 82.0 % [facility] Nucleated RBC/100 WBC (Bld) [Ratio] 0.0 % [facility] Platelet mean volume (Bld) [Entitic vol] 8.7 fL Low 9.0 - 12.[address] [facility] Platelets (Bld) [#/Vol] 137 10*3/uL Low 140 - 440 10*3/uL [facility] RBC (Bld) [#/Vol] 3.62 10*6/uL Low 4.40 - 5.9 0 10*6/uL [facility] WBC (Bld) [#/Vol] 4.5 10*3/uL 3.6 - 10.7 10*3/uL [facility] CBC WITH AUTO DIFFERENTIALon 04-24-2024 Basophils (Bld) [#/Vol] 0.0 10*3/uL Normal 0.0-0.2 [facility] Comment on above: Performed By: #### L [id number] ####Fur Comber: TRESSA SANTIZO ([phone])[facility] [place] [address] Basophils/100 WBC (Bld) 0.9 % Normal 0.0-2.0 [facility] Comment on above: Performed By: #### L [id number] ####Fur Comber: TRESSA SANTIZO ([id number])[facility] [place] [address] [place] Eosinophils (Bld) [#/Vol] 0.1 10*3/uL Normal 0.0-0.5 [facility] Comment on above: Performed By: #### L [id number] ####Fur Comber: TRESSA SANTIZO ([phone])[facility] Eosinophils/100 WBC (Bld) 2.2 % Normal 0.0-6.0 [facility] Comment on above: Performed By: #### L [id number] ####Fur Comber: TRESSA SANTIZO ([id number])[facility]ENTEROct[facility] [place] (SBHLAB)[address] Erythrocyte distribution width (RBC) [Ratio] 14.2 % Normal 11.5-15.0 [facility] Comment on above: Performed By: #### L [id number] ####Fur Comber: TRESSA SANTIZO ([phone])[facility] Hematocrit (Bld) [Volume fraction] 33.1 % Low 40.0-52.0 [facility] Comment on above: Performed By: #### L [id number] ####Fur Comber: TRESSA SANTIZO ([id number])[facility] ([facility])[address] [place] [address] Hemoglobin (Bld) [Mass/Vol] 10.9 g/dL Low 13.0-18.0 [facility] Comment on above: Performed By: #### L [id number] ####Fur Comber: TRESSA SANTIZO ([phone])[facility] IMMATURE GRANS % 0.2 % Normal 0.0-2.0 [facility] Comment on above: Performed By: #### L [id number] ####Fur Comber: TRESSA SANTIZO ([phone])[facility] IMMATURE GRANS ABSOLUTE 0.0 10*3/uL Normal <0.1 [facility] Comment on above: Performed By: #### L [id number] ####Fur Comber: TRESSA SANTIZO ([id number])[facility] Lymphocytes (Bld) [#/Vol] 1.4 10*3/uL Normal 1.0-4.3 [facility] Comment on above: Performed By: #### L [id number] ####Fur Comber: TRESSA SANTIZO ([phone])[facility] CENTEROctavia POLKAILYN (SBHLAB)[address] Lymphocytes/100 WBC (Bld) 30.3 % Normal 15.0-45.0 [facility] Comment on above: Performed By: #### L [id number] ####Fur Comber: TRESSA SANTIZO ([phone])[facility]ENTEROctavia [facility] (SBHLAB)[address] MCH (RBC) [Entitic mass] 30.1 pg Normal 26.0-34.0 [facility] Comment on above: Performed By: #### L [id number] ####Fur Comber: TRESSA SANTIZO ([id number])[facility]ENTEROct[facility] [place] (SBHLAB)[address] MCHC 32.9 % Normal 30.5-36.0 [facility] Comment on above: Performed By: #### L [id number] ####Fur Comber: TRESSA SANTIZO ([phone])[facility]ENTEROctavia POLKMOUNTAIN VIEW REGIONAL MEDICAL CENTERN (SBHLAB)[address] MCV (RBC) [Entitic vol] 91.4 fL Normal 77.0-99.0 [facility] Comment on above: Performed By: #### L [id number] ####Fur Comber: TRESSA SANTIZO ([phone])[facility]Tim (SBHLAB)[address] [place] [address] [place] Monocytes (Bld) [#/Vol] 0.3 10*3/uL Normal 0.0-0.9 [facility] Comment on above: Performed By: #### L [id number] ####Fur Comber: TRESSA SANTIZO ([phone])[facility]ENTEROctavia BARBMOUNTAIN VIEW REGIONAL MEDICAL CENTERTim (SBHLAB)[address] Monocytes/100 WBC (Bld) 7.6 % Normal 5.0-13.0 [facility] Comment on above: Performed By: #### L [id number] ####Fur Comber: TRESSA SANTIZO ([phone])[facility] [place] (SBHLAB)[address] NEUTROPHILS ABSOLUTE 2.6 10*3/uL Normal 1.8-7.5 [facility] Comment on above: Performed By: #### L [id number] ####Fur Comber: TRESSA SANTIZO ([id number])[facility] [place] ([facility])[address] Neutrophils/100 WBC (Bld) 58.8 % Normal 38.0-82.0 [facility] Comment on above: Performed By: #### L [id number] ####Fur Comber: TRESSA SANTIZO ([id number])[facility] [place] ([facility])[address] NRBC 0.0 /100 WBCs Normal 0.0-2.0 [facility] Comment on above: Performed By: #### L [id number] ####Fur Comber: TRESSA SANTIZO ([id number])[facility] [place] ([facility])[address] Platelet mean volume (Bld) [Entitic vol] 8.7 fL Low 9.0-12.7 [facility] Comment on above: Performed By: #### L [id number] ####Fur Comber: TRESSA SANTIZO ([id number])[facility] [place] ([facility])[address] [place] [address] [place] Platelets (Bld) [#/Vol] 137 10*3/uL Low 140-440 [facility] Comment on above: Performed By: #### L [id number] ####Fur Comber: TRESSA SANTIZO ([id number])[facility] [place] ([facility])[address] [place] [address] [place] RBC (Bld) [#/Vol] 3.62 10*6/uL Low 4.40-5.90 [facility] Comment on above: Performed By: #### L [id number] ####Fur Comber: TRESSA SANTIZO ([id number])[facility] [place] ([facility])[address] WBC (Bld) [#/Vol] 4.5 10*3/uL Normal 3.6-10.7 [facility] Comment on above: Performed By: #### L [id number] ####Fur Comber: TRESSA SANTIZO ([id number])[facility] [place] ([facility])[address] COMPREHENSIVE METABOLIC PANE Peter 04-24-2024 Albumin [Mass/Vol] 3.5 g/dL Normal 3.5-5.0 [facility] Comment on above: Performed By: #### L [id number] ####Fur Comber: TRESSA SANTIZO ([phone])[facility] [place] (SBHLAB)[address] ALP [Catalytic activity/Vol] 53 U/L Normal 38-126 [facility] Comment on above: Performed By: #### L AB17 ####Fur Comber: TRESSA SANTIZO ([id number])[facility] [place] (SBHLAB)[address] ALT [Catalytic activity/Vol] 21 U/L Normal 0-49 [facility] Comment on above: Performed By: #### L AB17 ####Fur Comber: TRESSA SANTIZO ([phone])[facility] [place] (SBHLAB)[address] Anion gap [Moles/Vol] 6 mmol/L Normal 3-13 [facility] Comment on above: Performed By: #### L AB17 ####Fur Comber: TRESSA SANTIZO ([id number])[facility] [place] (SBHLAB)[address] AST [Catalytic activity/Vol] 23 U/L Normal 15-46 [facility] Comment on above: Performed By: #### L AB17 ####Fur Comber: TRESSA SANTIZO ([phone])[facility] [place] (SBHLAB)[address] Bilirubin [Mass/Vol] 0.6 mg/dL Normal 0.2-1.3 [facility] Comment on above: Performed By: #### L AB17 ####Fur Comber: TRESSA SANTIZO ([phone])[facility] [place] (SBHLAB)[address] Calcium [Mass/Vol] 8.8 mg/dL Normal 8.4-10.4 [facility] Comment on above: Performed By: #### L AB17 ####Fur Comber: TRESSA SANTIZO ([phone])[facility] [place] (SBHLAB)[address] Chloride [Moles/Vol] 100 mmol/L Normal 98-107 [facility] Comment on above: Performed By: #### L AB17 ####Fur Comber: TRESSA SANTIZO ([id number])[facility] [place] (SBHLAB)[address] CO2 [Moles/Vol] 26 mmol/L Normal 22-30 [facility] Comment on above: Performed By: #### L AB17 ####Fur Comber: TRESSA SANTIZO ([id number])[facility] [place] (SBHLAB)[address] Creatinine [Mass/Vol] 0.87 mg/dL Normal 0.66-1.25 [facility] Comment on above: Performed By: #### L AB17 ####Fur Comber: TRESSA SANTIZO ([id number])[facility] [place] (SBHLAB)[address] GLOMERULAR FILTRATION RATE ML/MIN/1.73 SQ M.PREDICTED >90.0 Normal >60.0 [facility] Comment on above: Result Comment: Calc ulation based on the Chronic Kidney Disease Epidemiology Collaboration (CKD-EPI) equation refit without adjustment for race Performed By: #### L AB17 ####Fur Comber: TRESSA SANTIZO ([id number])[facility] [place] (SBHLAB)[address] Glucose [Mass/Vol] 147 mg/dL High 70-100 [facility] Comment on above: Performed By: #### L AB17 ####Fur Comber: TRESSA SANTIZO ([phone])[facility]ENTEROct[facility] [place] (SBHLAB)[address] Potassium [Moles/Vol] 4.0 mmol/L Normal 3.5-5.1 [facility] Comment on above: Performed By: #### L AB17 ####Fur Comber: TRESSA SANTIZO ([id number])[facility] [place] (SBHLAB)[address] Protein [Mass/Vol] 6.2 g/dL Low 6.3-8.2 [facility] Comment on above: Performed By: #### L AB17 ####Fur Comber: TRESSA SANTIZO ([id number])[facility]ENTER[facility] [place] (SBHLAB)[address] Sodium [Moles/Vol] 132 mmol/L Low 135-145 [facility] Comment on above: Performed By: #### L AB17 ####Fur Comber: TRESSA SANTIZO ([id number])[facility] [place] (SBHLAB)[address] Urea nitrogen [Mass/Vol] 7 mg/dL Low 9-20 [facility] Comment on above: Performed By: #### L AB17 ####Fur Comber: TRESSA SANTIZO ([phone])[facility]ENTER[facility] [place] (SBHLAB)[address] Comprehensive metabolic 1998 panelon 04-24-2024 Albumin [Mass/Vol] 3.5 g/dL 3.5 - 5.0 g/dL [facility] ALP [Catalytic activity/Vol] 53 U/L 38 - 126 U/L [facility] ALT [Catalytic activity/Vol] 21 U/L 0 - 49 U/L [facility] Anion gap [Moles/Vol] 6 mmol/L 3 - 13 mmol/L [facility] AST [Catalytic activity/Vol] 23 U/L 15 - 46 U/L [facility] Bilirubin [Mass/Vol] 0.6 mg/dL 0.2 - 1 .3 mg/dL [facility] Calcium [Mass/Vol] 8.8 mg/dL 8.4 - 10. 4 mg/dL [facility] Chloride [Moles/Vol] 100 mmol/L 98 - 10 7 mmol/L [facility] CO2 [Moles/Vol] 26 mmol/L 22 - 30 mmol/L [facility] Creatinine [Mass/Vol] 0.87 mg/dL 0.66 - 1.25 mg/dL [facility] GFR/1.73 sq M.predicted MDRD (S/P/Bld) [Vol rate/Area] - PINF [facility] Comment on above: Calculation based on the Chronic Kidney Disease Epidemiology Collaboration (CKD-EPI) equation refit without adjustment for race Glucose [Mass/Vol] 147 mg/dL High 70 - 100 mg/dL [facility] Interpretation and review of laboratory results Abnormal [facility] Potassium [Moles/Vol] 4.0 mmol/L 3.5 - 5.1 mmol/L [facility] Protein [Mass/Vol] 6.2 g/dL Low 6.3 - 8.2 g/dL [facility] Sodium [Moles/Vol] 132 mmol/L Low 135 - 145 mmol/L [facility] Urea nitrogen [Mass/Vol] 7 mg/dL Low 9 - 20 mg/dL [facility] IDNon 04-24-2024 IDN Normal [facility] Laboratory - Chemistry and C hemistry - challengeon 04-24-2024 Glucose [Mass/Vol] 176 mg/dL High 70 - 100 mg/dL [facility] Glucose [Mass/Vol] 98 mg/dL 70 - 100 mg/dL [facility] Glucose [Mass/Vol] 140 mg/dL High 70 - 100 mg/dL [facility] Glucose [Mass/Vol] 119 mg/dL High 70 - 100 mg/dL [facility] No Panel Informationon 04-24 Interpretation and review of laboratory results Abnormal [facility] Performed by: [facility], [address] [place] [address] [place] [address] CLIA ID: [id number] [facility] Interpretation and review of laboratory results Normal [facility] Performed by: [facility], [address] [facility], [facility] [place] [address] CLIA ID: [id number] [facility] Interpretation and review of laboratory results Abnormal [facility] Performed by: [facility], [address] [facility], [facility] [place] [address] CLIA ID: [id number] [facility] Interpretation and review of laboratory results Abnormal [facility] Performed by: [facility], [address] [facility], [facility] [place] [address] CLIA ID: [id number] [facility] Nursing Noteon 04-24-2024 Nursing Note Normal [facility] Progress Noteon 04-24-2024 Progress Note Nutrition rescreen completed. Patient assigned a level 1 for nutrition care. Normal [facility] Progress Note Normal [facility] CBC W Auto Differential pane l (Bld)on 04-23-2024 Basophils (Bld) [#/Vol] 0.1 10*3/uL 0.0 - 0.2 10*3/uL [facility] Basophils/100 WBC (Bld) 1.2 % 0.0 - 2.0 % [facility] Eosinophils (Bld) [#/Vol] 0.2 10*3/uL 0.0 - 0.5 10*3/uL [facility] Eosinophils/100 WBC (Bld) 2.0 % 0.0 - 6.0 % [facility] Erythrocyte distribution width (RBC) [Ratio] 13.9 % 11.5 - 15.0 % [facility] Hematocrit (Bld) [Volume fraction] 32.8 % Low 40.0 - 52.0 % [facility] Hemoglobin (Bld) [Mass/Vol] 11.3 g/dL Low 13.0 - 18.0 g/dL [facility] Immature granulocytes (Bld) [#/Vol] 0.0 10*3/uL NINF - 0.1 10*3/uL [facility] Immature granulocytes/100 WBC (Bld) 0.4 % 0.0 - 2.0 % [facility] Interpretation and review of laboratory results Abnormal [facility] Lymphocytes (Bld) [#/Vol] 3.7 10*3/uL 1.0 - 4.3 10*3/uL [facility] Lymphocytes/100 WBC (Bld) 48.2 % High 15.0 - 45.0 % [facility] MCH (RBC) [Entitic mass] 30.4 pg 26.0 - 34.[address] [facility] MCHC (RBC) [Mass/Vol] 34.5 % 30.5 - 36.0 % [facility] MCV (RBC) [Entitic vol] 88.2 fL 77.0 - 99.[address] [facility] Monocytes (Bld) [#/Vol] 0.5 10*3/uL 0.0 - 0.9 10*3/uL [facility] Monocytes/100 WBC (Bld) 6.3 % 5.0 - 13.0 % [facility] Neutrophils (Bld) [#/Vol] 3.2 10*3/uL 1.8 - 7.5 10*3/uL [facility] Neutrophils/100 WBC (Bld) 41.9 % 38.0 - 82.0 % [facility] Nucleated RBC/100 WBC (Bld) [Ratio] 0.0 % [facility] Platelet mean volume (Bld) [Entitic vol] 8.5 fL Low 9.0 - 12.[address] [facility] Platelets (Bld) [#/Vol] 200 10*3/uL 140 - 440 10*3/uL [facility] RBC (Bld) [#/Vol] 3.72 10*6/uL Low 4.40 - 5.9 0 10*6/uL [facility] WBC (Bld) [#/Vol] 7.6 10*3/uL 3.6 - 10.7 10*3/uL [facility] CBC WITH AUTO DIFFERENTIALon 04-23-2024 Basophils (Bld) [#/Vol] 0.1 10*3/uL Normal 0.0-0.2 [facility] Comment on above: Performed By: #### L [id number] ####Fur Comber: TRESSA SANTIZO ([id number])[facility] ([facility])[address] [place] [address] Basophils/100 WBC (Bld) 1.2 % Normal 0.0-2.0 [facility] Comment on above: Performed By: #### L [id number] ####Fur Comber: TRESSA SANTIZO ([phone])[facility] [place] (SBAB)[address] [place] [address] Eosinophils (Bld) [#/Vol] 0.2 10*3/uL Normal 0.0-0.5 [facility] Comment on above: Performed By: #### L [id number] ####Fur Comber: TRESSA SANTIZO ([phone])[facility] Eosinophils/100 WBC (Bld) 2.0 % Normal 0.0-6.0 [facility] Comment on above: Performed By: #### L [id number] ####Fur Comber: TRESSA SANTIZO ([phone])[facility] ([facility])[address] [place] [address] Erythrocyte distribution width (RBC) [Ratio] 13.9 % Normal 11.5-15.0 [facility] Comment on above: Performed By: #### L [id number] ####Fur Comber: TRESSA SANTIZO ([phone])[facility] ([facility])[address] [place] [address] Hematocrit (Bld) [Volume fraction] 32.8 % Low 40.0-52.0 [facility] Comment on above: Performed By: #### L [id number] ####Fur Comber: TRESSA SANTIZO ([phone])[facility] ([facility])[address] [place] [address] Hemoglobin (Bld) [Mass/Vol] 11.3 g/dL Low 13.0-18.0 [facility] Comment on above: Performed By: #### L [id number] ####Fur Comber: TRESSA SANTIZO ([phone])[facility] ([facility])[address] IMMATURE GRANS % 0.4 % Normal 0.0-2.0 [facility] Comment on above: Performed By: #### L [id number] ####Fur Comber: TRESSA SANTIZO ([id number])[facility]ENTEROct[facility] [place] (SBHLAB)[address] IMMATURE GRANS ABSOLUTE 0.0 10*3/uL Normal <0.1 [facility] Comment on above: Performed By: #### L [id number] ####Fur Comber: TRESSA SANTIZO ([id number])[facility]ENTEROctavia POLKMOUNT[facility] MEDICAL CENTERTim (SBHLAB)[address] Lymphocytes (Bld) [#/Vol] 3.7 10*3/uL Normal 1.0-4.3 [facility] Comment on above: Performed By: #### L [id number] ####Fur Comber: TRESSA SANTIZO ([id number])[facility]ENTEROctavia POLKMOUNTAIN VIEW REGIONAL MEDICAL CENTERTim (SBAB)[address] Lymphocytes/100 WBC (Bld) 48.2 % High 15.0-45.0 [facility] Comment on above: Performed By: #### L [id number] ####Fur Comber: TRESSA SANTIZO ([phone])[facility]ENTEROctavia POLKMOUNTAIN VIEW REGIONAL MEDICAL CENTERTim (SBHLAB)[address] MCH (RBC) [Entitic mass] 30.4 pg Normal 26.0-34.0 [facility] Comment on above: Performed By: #### L [id number] ####Fur Comber: TRESSA SANTIZO ([phone])[facility]ENTEROctavia [facility]ITALTim (SBHLAB)[address] MCHC 34.5 % Normal 30.5-36.0 [facility] Comment on above: Performed By: #### L [id number] ####Fur Comber: TRESSA SANTIZO ([id number])[facility]ENTEROctavia POLKMOUNTAIN VIEW [facility] MEDICAL CENTERTim (SBHLAB)[address] MCV (RBC) [Entitic vol] 88.2 fL Normal 77.0-99.0 [facility] Comment on above: Performed By: #### L [id number] ####Fur Comber: TRESSA SANTIZO ([id number])[facility] [place] (SBHLAB)[address] Monocytes (Bld) [#/Vol] 0.5 10*3/uL Normal 0.0-0.9 [facility] Comment on above: Performed By: #### L [id number] ####Fur Comber: TRESSA SANTIZO ([id number])[facility] [place] (SBHLAB)[address] Monocytes/100 WBC (Bld) 6.3 % Normal 5.0-13.0 [facility] Comment on above: Performed By: #### L [id number] ####Fur Comber: TRESSA SANTIZO ([phone])[facility] [place] (SBHLAB)[address] NEUTROPHILS ABSOLUTE 3.2 10*3/uL Normal 1.8-7.5 [facility] Comment on above: Performed By: #### L [id number] ####Fur Comber: TRESSA SANTIZO ([id number])[facility] [place] (SBHLAB)[address] Neutrophils/100 WBC (Bld) 41.9 % Normal 38.0-82.0 [facility] Comment on above: Performed By: #### L [id number] ####Fur Comber: TRESSA SANTIZO ([id number])[facility] [place] (SBHLAB)[address] NRBC 0.0 /100 WBCs Normal 0.0-2.0 [facility] Comment on above: Performed By: #### L [id number] ####Fur Comber: TRESSA SANTIZO ([id number])[facility] [place] (SBHLAB)[address] [place] [address] [place] Platelet mean volume (Bld) [Entitic vol] 8.5 fL Low 9.0-12.7 [facility] Comment on above: Performed By: #### L [id number] ####Fur Comber: TRESSA SANTIZO ([phone])[facility] [place] (SBHLAB)[address] Platelets (Bld) [#/Vol] 200 10*3/uL Normal 140-440 [facility] Comment on above: Performed By: #### L [id number] ####Fur Comber: TRESSA SANTIZO ([id number])[facility]ENTEROctavia BENITEZN (SBHLAB)[address] RBC (Bld) [#/Vol] 3.72 10*6/uL Low 4.40-5.90 [facility] Comment on above: Performed By: #### L [id number] ####Fur Comber: TRESSA SANTIZO ([phone])[facility]ENTEROctavia BENITEZN (SBHLAB)[address] WBC (Bld) [#/Vol] 7.6 10*3/uL Normal 3.6-10.7 [facility] Comment on above: Performed By: #### L [id number] ####Fur Comber: TRESSA SANTIZO ([phone])[facility] CENTEROctavia BENITEZN (SBHLAB)[address] [place] [address] COMPREHENSIVE METABOLIC PANE Peter 04-23-2024 Albumin [Mass/Vol] 3.7 g/dL Normal 3.5-5.0 [facility] Comment on above: Performed By: #### L AB129, LAB17, [id number], LAB67 ####Fur Comber: TRESSA SANTIZO ([phone])[facility] CENTEROctavia BENITEZN (SBHLAB)[address] ALP [Catalytic activity/Vol] 49 U/L Normal 38-126 [facility] Comment on above: Performed By: #### L AB129, LAB17, FBV906, LAB67 ####Fur Comber: TRESSA SANTIZO ([phone])[facility] CENTEROctavia BENITEZN (SBHLAB)[address] ALT [Catalytic activity/Vol] 26 U/L Normal 0-49 [facility] Comment on above: Performed By: #### L AB129, LAB17, YGV008, LAB67 ####Fur Comber: TRESSA SANTIZO ([phone])[facility] [place] (SBHLAB)[address] [place] [address] [place] Anion gap [Moles/Vol] 13 mmol/L Normal 3-13 [facility] Comment on above: Performed By: #### L AB129, LAB17, RFX194, LAB67 ####Fur Comber: TRESSA SANTIZO ([id number])[facility]ENTERA [facility] (SBHLAB)[address] AST [Catalytic activity/Vol] 45 U/L Normal 15-46 [facility] Comment on above: Performed By: #### L AB129, LAB17, [id number], LAB67 ####Fur Comber: TRESSA SANTIZO ([phone])[facility]ENTERA [facility] (SBHLAB)[address] Bilirubin [Mass/Vol] 0.5 mg/dL Normal 0.2-1.3 [facility] Comment on above: Performed By: #### L AB129, LAB17, AKM406, LAB67 ####Fur Comber: TRESSA SANTIZO ([phone])[facility]A [facility] (SBHLAB)[address] Calcium [Mass/Vol] 8.5 mg/dL Normal 8.4-10.4 [facility] Comment on above: Performed By: #### L AB129, LAB17, VQH966, LAB67 ####Fur Comber: TRESSA SANTIZO ([id number])[facility] [place] (SBHLAB)[address] [place] [address] [place] Chloride [Moles/Vol] 93 mmol/L Low 98-107 [facility] Comment on above: Performed By: #### L AB129, LAB17, NNQ943, LAB67 ####Fur Comber: TRESSA SANTIZO ([phone])[facility] (SBHLAB)[address] [place] [address] [place] CO2 [Moles/Vol] 22 mmol/L Normal 22-30 [facility] Comment on above: Performed By: #### L AB129, LAB17, [id number], LAB67 ####Fur Comber: TRESSA SANTIZO ([phone])[facility] CENTEROctavia [facility] ([facility])[address] Creatinine [Mass/Vol] 0.94 mg/dL Normal 0.66-1.25 [facility] Comment on above: Performed By: #### L AB129, LAB17, BSG711, LAB67 ####Fur Comber: TRESSA SANTIZO ([phone])[facility] CENTEROctavia [place] ([facility])[address] [place] [address] GLOMERULAR FILTRATION RATE ML/MIN/1.73 SQ M.PREDICTED >90.0 Normal >60.0 [facility] Comment on above: Result Comment: Calc ulation based on the Chronic Kidney Disease Epidemiology Collaboration (CKD-EPI) equation refit without adjustment for race Performed By: #### L AB129, LAB17, GHZ987, LAB67 ####Fur Comber: TRESSA SANTIZO ([phone])[facility] CENTEROctavia [facility] ([facility])[address] [place] [address] [place] Glucose [Mass/Vol] 127 mg/dL High 70-100 [facility] Comment on above: Performed By: #### L AB129, LAB17, XJN773, LAB67 ####Fur Comber: TRESSA SANTIZO ([phone])[facility] ([facility])[address] [place] [address] [place] Potassium [Moles/Vol] 3.4 mmol/L Low 3.5-5.1 [facility] Comment on above: Performed By: #### L AB129, LAB17, GYN254, LAB67 ####Fur Comber: TRESSA SANTIZO ([id number])[facility] ([facility])[address] Protein [Mass/Vol] 6.3 g/dL Normal 6.3-8.2 [facility] Comment on above: Performed By: #### L AB129, LAB17, OVN092, LAB67 ####Fur Comber: TRESSA SANTIZO ([id number])[facility]ENTEROctavia BENITEZN (SBHLAB)[address] Sodium [Moles/Vol] 128 mmol/L Low 135-145 [facility] Comment on above: Performed By: #### L AB129, LAB17, BCZ693, LAB67 ####Fur Comber: TRESSA SANTIZO ([phone])[facility]ENTEROctavia [facility] (SBHLAB)[address] Urea nitrogen [Mass/Vol] 5 mg/dL Low 9-20 [facility] Comment on above: Performed By: #### L AB129, LAB17, [id number], LAB67 ####Fur Comber: TRESSA CHRISJAVY ([phone])[facility]ENTEROctavia HERNANDEZ (SBHLAB)[address] Cobalamin (Vitamin B12) [Mas s/Vol]on 04-23-2024 Interpretation and review of laboratory results Normal [facility] Comprehensive metabolic 1998 panelon 04-23-2024 Albumin [Mass/Vol] 3.7 g/dL 3.5 - 5.0 g/dL [facility] ALP [Catalytic activity/Vol] 49 U/L 38 - 126 U/L [facility] ALT [Catalytic activity/Vol] 26 U/L 0 - 49 U/L [facility] Anion gap [Moles/Vol] 13 mmol/L 3 - 13 mmol/L [facility] AST [Catalytic activity/Vol] 45 U/L 15 - 46 U/L [facility] Bilirubin [Mass/Vol] 0.5 mg/dL 0.2 - 1 .3 mg/dL [facility] Calcium [Mass/Vol] 8.5 mg/dL 8.4 - 10. 4 mg/dL [facility] Chloride [Moles/Vol] 93 mmol/L Low 98 - 10 7 mmol/L [facility] CO2 [Moles/Vol] 22 mmol/L 22 - 30 mmol/L [facility] Creatinine [Mass/Vol] 0.94 mg/dL 0.66 - 1.25 mg/dL [facility] GFR/1.73 sq M.predicted MDRD (S/P/Bld) [Vol rate/Area] - PINF [facility] Comment on above: Calculation based on the Chronic Kidney Disease Epidemiology Collaboration (CKD-EPI) equation refit without adjustment for race Glucose [Mass/Vol] 127 mg/dL High 70 - 100 mg/dL [facility] Interpretation and review of laboratory results Abnormal [facility] Potassium [Moles/Vol] 3.4 mmol/L Low 3.5 - 5.1 mmol/L [facility] Protein [Mass/Vol] 6.3 g/dL 6.3 - 8.2 g/dL [facility] Sodium [Moles/Vol] 128 mmol/L Low 135 - 145 mmol/L [facility] Urea nitrogen [Mass/Vol] 5 mg/dL Low 9 - 20 mg/dL [facility] ECG 12-LEADon 04-23-2024 ECG 12-LEAD IMPRESSION: Sinus tachycardia RBBB and LAFB Electronically Signed On 04-23-2024 06:02:53 EDT by Marjan Doran Normal [facility] HEMOGLOBIN A1Con 04-23-2024 Glucose [Mass/Vol] 88 mg/dL Normal [facility] Comment on above: Order Comment: If no t done within the last 3 mos Performed By: #### L AB90 ####Fur Comber: TRESSA SANTIZO ([id number])[facility] ([facility])[address] [place] [address] HbA1c (Bld) [Mass fraction] 4.7 % Normal <5.7 [facility] Comment on above: Order Comment: If no t done within the last 3 mos Result Comment: Norm al less than 5.7%Prediabetes 5.7% to 6.4%Diabetes 6.5% or higher--HgbA1C levels may not be accurate in patients who have renal disease, received recent blood transfusions, are anemic, or who have dyshemoglobinemia. Performed By: #### L AB90 ####Fur Comber: TRESSA SANTIZO ([id number])[facility] ([facility])[address] [place] [address] Laboratory - Chemistry and C hemistry - challengeon 04-23-2024 Glucose [Mass/Vol] 142 mg/dL High 70 - 100 mg/dL [facility] Glucose [Mass/Vol] 133 mg/dL High 70 - 100 mg/dL [facility] [facility] Glucose [Mass/Vol] 187 mg/dL High 70 - 100 mg/dL [facility] Glucose [Mass/Vol] 124 mg/dL High 70 - 100 mg/dL [facility] Magnesium [Mass/Vol] 1.4 mg/dL Low 1.6 - 2 .3 mg/dL [facility] Average glucose Estimated from glycated hemoglobin (Bld) [Mass/Vol] 88 mg/dL [facility] Cobalamin (Vitamin B12) [Mass/Vol] 684 pg/mL 239 - 931 pg/mL [facility] TSH Qn 4.014 m[IU]/L [facility] Glucose [Mass/Vol] 148 mg/dL High 70 - 100 mg/dL [facility] Laboratory - Hematology and Cell countson 04-23-2024 HbA1c (Bld) [Mass fraction] 4.7 % NINF - 5.7 % [facility] Comment on above: Normal less than 5.7 % Prediabetes 5.7% to 6.4% Diabetes 6.5% or higher --HgbA1C levels may not be accurate in patients who have renal disease, received recent blood transfusions, are anemic, or who have dyshemoglobinemia. MAGNESIUMon 04-23-2024 Magnesium [Mass/Vol] 1.4 mg/dL Low 1.6-2.3 [facility] Comment on above: Performed By: #### L AB129, LAB17, KZY125, LAB67 ####Fur Comber: TRESSA SANTIZO ([id number])HANNA HERNANDEZ (SBHLAB)[address] [place] [address] Magnesium [Mass/Vol]on 04-23 Interpretation and review of laboratory results Abnormal [facility] No Panel Informationon 04-23 Interpretation and review of laboratory results Abnormal [facility] Performed by: [facility], [address] [address] CLIA ID: [id number] [facility] Interpretation and review of laboratory results Abnormal [facility] Performed by: [facility], [address] [facility] [address] CLIA ID: [id number] [facility] Interpretation and review of laboratory results Abnormal [facility] Performed by: [facility], [address] [facility] [address] CLIA ID: [id number] [facility] Interpretation and review of laboratory results Abnormal [facility] Performed by: [facility], [address] [facility] [address] CLIA ID: [id number] [facility] Sinus tachycardia RBBB and LAFB Electronically Signed On 04-23-2024 06:02:53 EDT by Marjan Doran CV Marjan Paredes MD - 04/23/2024 IMPRESSION: Sinus tachycardia RBBB and LAFB Electronically Signed On 04-23-2024 06:02:[address] Marjan [address]an [facility] Interpretation and review of laboratory results Abnormal [facility] Performed by: [facility], [address] [facility] [address] CLIA ID: [id number] [facility] No Panel InformationOrdered By: Marjan Doran on 04-23-2024 P [place] 41 degrees [employer] Work Phone: LA Interval 169 ms [facility] Work Phone: QRS [place] -48 degrees [employer] Work Phone: QRSD Interval 147 ms [employer] Work Phone: QT Interval 396 ms [employer] Work Phone: QTC Interval 513 ms [facility] Work Phone: T Wave [place] -4 degrees [employer] Work Phone: [employer] Work Phone: Nursing Noteon 04-23-2024 Nursing Note Normal [facility] Progress Noteon 04-23-2024 Progress Note Normal [facility] Progress Note Normal [facility] Progress Note Normal [facility] THYROID STIMULATING HORMONEo n 04-23-2024 THYROID STIMULATING HORMONE 4.014 uIU/mL Normal 0.465-4.680 [facility] Comment on above: Performed By: #### L AB129, LAB17, [id number], LAB67 ####Fur Comber: TRESSA SANTIZO ([id number])[facility] CENTERT[facility] (SBHLAB)[address] TSH Qnon 04-23-2024 Interpretation and review of laboratory results Normal [facility] VITAMIN B12on 04-23-2024 Cobalamin (Vitamin B12) [Mass/Vol] 684 pg/mL Normal 239-931 [facility] Comment on above: Performed By: #### L AB129, LAB17, [id number], LAB67 ####Fur Comber: TRESSA SANTIZO ([phone])[facility]ENTEROctavia HERNANDEZ (SBHLAB)[address] Vital signsOrdered By: Jaylon Doran on 04-23-2024 Heart rate 101 /min bpm [facility] Work Phone: ACETAMINOPHEN LEVELon 2023 Acetaminophen [Mass/Vol] ug/mL Low 10.0-30.0 [facility] Comment on above: Performed By: #### L AB43, LAB17, LAB46 ####Fur Comber: TRESSA SANTIZO ([phone])[facility] [place] [address] CBC W Auto Differential pane l (Bld)Ordered By: Lorin Carmona on 04-22-2024 Erythrocyte distribution width (RBC) [Ratio] 13.7 % 11.5 - 15.0 % [facility] Hematocrit (Bld) [Volume fraction] 36.5 % Low 40.0 - 52.0 % [facility] Hemoglobin (Bld) [Mass/Vol] 12.9 g/dL Low 13.0 - 18.0 g/dL [facility] Interpretation and review of laboratory results Abnormal [facility] MCH (RBC) [Entitic mass] 30.4 pg 26.0 - 34.[address] [facility] MCHC (RBC) [Mass/Vol] 35.3 % 30.5 - 36.0 % [facility] MCV (RBC) [Entitic vol] 86.1 fL 77.0 - 99.[address] [facility] Platelet mean volume (Bld) [Entitic vol] 8.2 fL Low 9.0 - 12.[address] [facility] Platelets (Bld) [#/Vol] 269 10*3/uL 140 - 440 10*3/uL [facility] RBC (Bld) [#/Vol] 4.24 10*6/uL Low 4.40 - 5.9 0 10*6/uL [facility] WBC (Bld) [#/Vol] 11.2 10*3/uL High 3.6 - 10.7 10*3/uL [facility] CBC WITH AUTO DIFFERENTIALon 04-22-2024 Erythrocyte distribution width (RBC) [Ratio] 13.7 % Normal 11.5-15.0 [facility] Comment on above: Performed By: #### L [id number], [id number] ####Fur Comber: TRESSA SANTIZO ([id number])[facility] ([facility])[address] [place] [address] Hematocrit (Bld) [Volume fraction] 36.5 % Low 40.0-52.0 [facility] Comment on above: Performed By: #### L [id number], [id number] ####Fur Comber: TRESSA SANTIZO ([id number])[facility] ([facility])[address] [place] [address] Hemoglobin (Bld) [Mass/Vol] 12.9 g/dL Low 13.0-18.0 [facility] Comment on above: Performed By: #### L [id number], [id number] ####Fur Comber: TRESSA SANTIZO ([id number])[facility])[address] [place] [address] MCH (RBC) [Entitic mass] 30.4 pg Normal 26.0-34.0 [facility] Comment on above: Performed By: #### L [id number], [id number] ####Fur Comber: TRESSA SANTIZO ([id number])[facility] ([facility])[address] [place] [address] MCHC 35.3 % Normal 30.5-36.0 [facility] Comment on above: Performed By: #### L [id number], [id number] ####Fur Comber: TRESSA SANTIZO ([id number])[facility] [place] (SBHLAB)[address] MCV (RBC) [Entitic vol] 86.1 fL Normal 77.0-99.0 [facility] Comment on above: Performed By: #### L [id number], [id number] ####Fur Comber: TRESSA SANTIZO ([id number])[facility] [place] (SBHLAB)[address] Platelet mean volume (Bld) [Entitic vol] 8.2 fL Low 9.0-12.7 [facility] Comment on above: Performed By: #### L YD9685, [id number] ####Fur Comber: TRESSA SANTIZO ([id number])[facility] [place] (SBHLAB)[address] Platelets (Bld) [#/Vol] 269 10*3/uL Normal 140-440 [facility] Comment on above: Performed By: #### L [id number], [id number] ####Fur Comber: TRESSA SANTIZO ([id number])[facility]A [place] (SBHLAB)[address] RBC (Bld) [#/Vol] 4.24 10*6/uL Low 4.40-5.90 [facility] Comment on above: Performed By: #### L [id number], [id number] ####Fur Comber: TRESSA SANTIZO ([id number])[facility] [place] (SBHLAB)[address] [place] [address] [place] WBC (Bld) [#/Vol] 11.2 10*3/uL High 3.6-10.7 [facility] Comment on above: Performed By: #### L [id number], [id number] ####Fur Comber: TRESSA SANTIZO ([id number])[facility] [place] (SBHLAB)[address] COMPLETE URINALYSISon 2023 BILIRUBIN, TOTAL PRESENCE IN URINE Negative Normal Negative [facility] Comment on above: Performed By: #### L AB347 ####Fur Comber: TRESSA SANTIZO ([id number])[facility])[address] Clarity (U) Clear Normal Clear [facility] Comment on above: Performed By: #### L AB347 ####Fur Comber: TRESSA SANTIZO ([id number])[facility])[address] Color (U) Colorless Normal Lt. Yellow [facility] Comment on above: Performed By: #### L AB347 ####Fur Comber: TRESSA SANTIZO ([id number])[facility] ([facility])[address] GLUCOSE (MG/DL) IN URINE Normal Normal Normal (<70) [facility] Comment on above: Performed By: #### L AB347 ####Fur Comber: TRESSA SANTIZO ([id number])[facility] ([facility])[address] HEMOGLOBIN PRESENCE IN URINE Negative Normal Negative [facility] Comment on above: Performed By: #### L AB347 ####Fur Comber: TRESSA SANTIZO ([id number])[facility])[address] Ketones Ql (U) Negative Normal Negative [facility] Comment on above: Performed By: #### L AB347 ####Fur Comber: TRESSA SANTIZO ([id number])[facility] ([facility])[address] LEUKOCYTE ESTERASE PRESENCE IN URINE BY TEST STRIP Negative Normal Negative [facility] Comment on above: Performed By: #### L AB347 ####Fur Comber: TRESSA SANTIZO ([id number])[facility] [place] (SBHLAB)[address] NITRITE PRESENCE IN URINE Negative Normal Negative [facility] Comment on above: Performed By: #### L AB347 ####Fur Comber: TRESSA SANTIZO ([id number])[facility] [place] (SBHLAB)[address] pH (U) 5.5 [pH] Normal 5.0-8.0 [facility] Comment on above: Performed By: #### L AB347 ####Fur Comber: TRESSA SANTIZO ([id number])[facility]A [facility] (SBHLAB)[address] Protein (U) [Mass/Vol] Negative Normal Negative [facility] Comment on above: Performed By: #### L AB347 ####Fur Comber: TRESSA SANTIZO ([id number])[facility]A [facility]BMOUNT[facility]ERN (SBHLAB)[address] Specific gravity (U) [Rel density] 1.003 Low 1.005-1.030 [facility] Comment on above: Performed By: #### L AB347 ####Fur Comber: TRESSA SANTIZO ([id number])[facility]A BARBMOUNT[facility]ERN (SBHLAB)[address] [place] [address] UROBILINOGEN (MG/DL) IN URINE Normal Normal Normal (0-1) [facility] Comment on above: Performed By: #### L AB347 ####Fur Comber: TRESSA SANTIZO ([id number])[facility]A [facility] (SBHLAB)[address] COMPREHENSIVE METABOLIC PANE Peter 04-22-2024 Albumin [Mass/Vol] 4.6 g/dL Normal 3.5-5.0 [facility] Comment on above: Performed By: #### L AB43, LAB17, LAB46 ####Fur Comber: TRESSA SANTIZO ([id number])[facility]A [facility]BMOUNT[facility]ERN (SBHLAB)[address] [place] [address] [place] ALP [Catalytic activity/Vol] 73 U/L Normal 38-126 [facility] Comment on above: Performed By: #### Popeye AB43, LAB17, LAB46 ####Fur Comber: TRESSA SANTIZO ([id number])[facility] [place] (SBHLAB)[address] [place] [address] [place] ALT [Catalytic activity/Vol] 31 U/L Normal 0-49 [facility] Comment on above: Performed By: #### Popeey AB43, LAB17, LAB46 ####Fur Comber: TRESSA SANTIZO ([id number])[facility] [place] (SBHLAB)[address] Anion gap [Moles/Vol] 18 mmol/L High 3-13 [facility] Comment on above: Performed By: #### Popeye DERAS43, LAB17, LAB46 ####Fur Comber: TRESSA SANTIZO ([id number])[facility] [place] (SBHLAB)[address] [place] [address] [place] AST [Catalytic activity/Vol] 53 U/L High 15-46 [facility] Comment on above: Performed By: #### Popeye DERAS43, LAB17, LAB46 ####Fur Comber: TRESSA SANTIZO ([id number])[facility] [place] (SBHLAB)[address] [place] [address] [place] Bilirubin [Mass/Vol] 0.5 mg/dL Normal 0.2-1.3 [facility] Comment on above: Performed By: #### Popeye AB43, LAB17, LAB46 ####Fur Comber: TRESSA SANTIZO ([id number])[facility] [place] (SBHLAB)[address] [place] [address] [place] Calcium [Mass/Vol] 9.4 mg/dL Normal 8.4-10.4 [facility] Comment on above: Performed By: #### L AB43, LAB17, LAB46 ####Fur Comber: TRESSA SANTIZO ([id number])[facility] [place] (SBHLAB)[address] Chloride [Moles/Vol] 89 mmol/L Low 98-107 [facility] Comment on above: Performed By: #### Popeye AB43, LAB17, LAB46 ####Fur Comber: TRESSA SANTIZO ([id number])[facility] CENTEROctavia [facility] (SBHLAB)[address] CO2 [Moles/Vol] 20 mmol/L Low 22-30 [facility] Comment on above: Performed By: #### Popeye AB43, LAB17, LAB46 ####Fur Comber: TRESSA SANTIZO ([id number])[facility] Creatinine [Mass/Vol] 0.78 mg/dL Normal 0.66-1.25 [facility] Comment on above: Performed By: #### Popeye PERALES, LAB17, LAB46 ####Fur Comber: TRESSA SANTIZO ([id number])[facility] CENTEROctavia [facility] (HLAB)[address] GLOMERULAR FILTRATION RATE ML/MIN/1.73 SQ M.PREDICTED >90.0 Normal >60.0 [facility] Comment on above: Result Comment: Calc ulation based on the Chronic Kidney Disease Epidemiology Collaboration (CKD-EPI) equation refit without adjustment for race Performed By: #### Popeye DERAS43, LAB17, LAB46 ####Fur Comber: TRESSA SANTIZO ([id number])[facility] CENTEROctavia [facility] (HLAB)[address] Glucose [Mass/Vol] 92 mg/dL Normal 70-100 [facility] Comment on above: Performed By: #### Popeye DERAS43, LAB17, LAB46 ####Fur Comber: TRESSA SANTIZO ([id number])[facility] (HLAB)[address] Potassium [Moles/Vol] 4.2 mmol/L Normal 3.5-5.1 [facility] Comment on above: Performed By: #### L AB43, LAB17, LAB46 ####Fur Comber: TRESSA DARLYN ([id number])[facility] (SBHLAB)[address] Protein [Mass/Vol] 7.5 g/dL Normal 6.3-8.2 [facility] Comment on above: Performed By: #### L AB43, LAB17, LAB46 ####Fur Comber: TRESSA SANTIZO ([id number])[facility] (SBHLAB)[address] Sodium [Moles/Vol] 127 mmol/L Low 135-145 [facility] Comment on above: Performed By: #### L AB43, LAB17, LAB46 ####Fur Comber: TRESSA CHRISJAVY ([id number])[facility] (SB[facility])[address] [place] [address] Urea nitrogen [Mass/Vol] 5 mg/dL Low 9-20 [facility] Comment on above: Performed By: #### L AB43, LAB17, LAB46 ####Fur Comber: TRESSA JONESALEKSANDR ([id number])[facility] (SB[facility])[address] [place] [address] Comprehensive metabolic 1998 panelon 04-22-2024 Albumin [Mass/Vol] 4.6 g/dL 3.5 - 5.0 g/dL [facility] ALP [Catalytic activity/Vol] 73 U/L 38 - 126 U/L [facility] ALT [Catalytic activity/Vol] 31 U/L 0 - 49 U/L [facility] Anion gap [Moles/Vol] 18 mmol/L High 3 - 13 mmol/L [facility] AST [Catalytic activity/Vol] 53 U/L High 15 - 46 U/L [facility] Bilirubin [Mass/Vol] 0.5 mg/dL 0.2 - 1 .3 mg/dL [facility] Calcium [Mass/Vol] 9.4 mg/dL 8.4 - 10. 4 mg/dL [facility] Chloride [Moles/Vol] 89 mmol/L Low 98 - 10 7 mmol/L [facility] CO2 [Moles/Vol] 20 mmol/L Low 22 - 30 mmol/L [facility] Creatinine [Mass/Vol] 0.78 mg/dL 0.66 - 1.25 mg/dL [facility] GFR/1.73 sq M.predicted MDRD (S/P/Bld) [Vol rate/Area] - PINF [facility] Comment on above: Calculation based on the Chronic Kidney Disease Epidemiology Collaboration (CKD-EPI) equation refit without adjustment for race Glucose [Mass/Vol] 92 mg/dL 70 - 100 mg/dL [facility] Potassium [Moles/Vol] 4.2 mmol/L 3.5 - 5.1 mmol/L [facility] Protein [Mass/Vol] 7.5 g/dL 6.3 - 8.2 g/dL [facility] Sodium [Moles/Vol] 127 mmol/L Low 135 - 145 mmol/L [facility] Urea nitrogen [Mass/Vol] 5 mg/dL Low 9 - 20 mg/dL [facility] DRUGS OF ABUSEon 04-22-2024 AMPHETAMINE SCREEN Negative Normal [facility] Comment on above: Performed By: #### L [id number], YGU575, SJV340 ####Fur Comber: TRESSA SANTIZO ([phone])[facility] (SBAB)[address] [place] [address] BARBITURATES SCREEN Positive Normal [facility] Comment on above: Performed By: #### L [id number], [id number], [id number] ####Fur Comber: TRESSA SANTIZO ([phone])[facility] (SBHLAB)[address] [place] [address] BENZODIAZEPINE SCREEN Negative Normal [facility] Comment on above: Performed By: #### L [id number], QJM611, [id number] ####Fur Comber: TRESSA SANTIZO ([id number])[facility] (SBHL[facility])[address] [place] [address] COCAINE METAB. SCREEN Negative Normal [facility] Comment on above: Performed By: #### L [id number], FLW766, AIO237 ####Fur Comber: TRESSA SANTIZO ([id number])[facility] [place] (SBHLAB)[address] METHADONE SCREEN Negative Normal [facility] Comment on above: Performed By: #### L [id number], OYY401, ZHS060 ####Fur Comber: TRESSA SANTIZO ([id number])[facility] [place] (SB[facility])[address] OPIATES SCREEN Negative Normal [facility] Comment on above: Performed By: #### L [id number], KOI194, YYG916 ####Fur Comber: TRESSA SANTIZO ([id number])[facility] (SBHLAB)[address] OXYCODONE SCREEN Positive Normal [facility] Comment on above: Performed By: #### L [id number], MEH107, JUV365 ####Fur Comber: TRESSA SANTIZO ([phone])[facility] (SB[facility])[address] PHENCYCLIDINE SCREEN Negative Normal [facility] Comment on above: Result Comment: [...] under separate order. Performed By: #### L [id number], HKY062, PEK268 ####Fur Comber: TRESSA SANTIZO ([id number])[facility] (SB[facility])[address] ED Nursing Noteon 04-22-2024 ED Nursing Note Normal [facility] ED Nursing Note Normal [facility] ED Nursing Note Detox rules signed b y patient. Witnessed by ACC RN. Ruperto Cortez RN 04/22/244 Normal [facility] ED Provider Noteon ED Provider Note Normal [facility] ETHANOLon 04-22-2024 ETHANOL IN SER/PLAS 0.309 g/dL Critically high 0.000-0.010 [facility] Comment on above: Result Comment: ORDE R COMMENTS:NOTE: This result is for medical treatment only. Analysis performed using non-forensic procedures. Performed By: #### L AB43, LAB17, LAB46 ####Fur Comber: TRESSA SANTIZO ([phone])[facility] ([facility])[address] [place] [address] Ethanol (Bld) [Mass/Vol]Orde red By: Marlyn Levine on 04-22-2024 Ethanol [Mass/Vol] 0.309 g/dL Critically high 0.000 - 0.010 g/dL [facility] Interpretation and review of laboratory results Abnormal [facility] Laboratory - Chemistry and C hemistry - challengeOrdered By: Daniel Allen on 04-22-2024 Osmolality [Osmolality] 333 mosm/kg High [facility] Laboratory - Chemistry and C hemistry - challengeon 04-22-2024 Glucose [Mass/Vol] 73 mg/dL 70 - 100 mg/dL [facility] Sodium (24H U) [Mass/Vol] 7 mmol/L Low 30 - 90 mmol/L [facility] Laboratory - Drug toxicology on 04-22-2024 Amphetamines Screen method >1000 ng/mL Ql (U) Negative [facility] Barbiturates Screen method >200 ng/mL Ql (U) Positive [facility] Benzodiazepines Ql (U) Negative [facility] Methadone Screen Ql (U) Negative [facility] Opiates Screen Ql (U) Negative [facility] oxyCODONE Ql (U) Positive [facility] Phencyclidine Ql (U) Negative [facility] Acetaminophen [Mass/Vol] ug/mL Low 10.0 - 30.0 ug/mL [facility] Laboratory - Hematology and Cell countson 04-22-2024 Basophils (Bld) [#/Vol] 0.2 10*3/uL 0.0 - 0.2 10*3/uL [facility] Basophils/100 WBC (Bld) 2 % 0 - 2 % [facility] Eosinophils (Bld) [#/Vol] 0.3 10*3/uL 0.0 - 0.5 10*3/uL [facility] Eosinophils/100 WBC (Bld) 3 % 0 - 6 % [facility] Lymphocytes (Bld) [#/Vol] 4.3 10*3/uL 1.0 - 4.3 10*3/uL [facility] Lymphocytes/100 WBC (Bld) 38 % 15 - 45 % [facility] Monocytes (Bld) [#/Vol] 0.1 10*3/uL 0.0 - 0.9 10*3/uL [facility] Monocytes/100 WBC (Bld) 1 % Low 5 - 13 % [facility] Neutrophils (Bld) [#/Vol] 6.3 10*3/uL 1.8 - 7.5 10*3/uL [facility] RBC morphology finding Nom (Bld) Normal [facility] Segmented neutrophils/100 WBC (Bld) 56 % 38 - 82 % [facility] Laboratory - Microbiology an d Antimicrobial susceptibilityOrdered By: Aylin Moran on 04-22-2024 SARS-CoV-2 (COVID-19) Ag IA.rapid Ql (Resp) Negative Negative [facility] Comment on above: A negative result do es not rule out the possibility of SARS-CoV-2 infection. NAAT-based methods should be considered for symptomatic patients presenting greater than seven days after onset of symptoms. Method: Lateral flow immunoassay. Fact sheets for healthcare providers and patients can be found at the following sites: https://www.fda.gov/media/697685/download https://www.fda.gov/media/089573/download MANUAL DIFFERENTIAL (CELLAVI ILIANA)on 04-22-2024 BAND NEUTROPHILS TOTAL PER COUNTED LEUKOCYTES BY MANUAL COUNT Normal [facility] Comment on above: Performed By: #### L [id number], [id number] ####Fur Comber: TRESSA SANTIZO ([phone])[facility] ([facility] [facility])[address] [place] [address] BASOPHILS (10*3/UL) IN BLOOD-CELLAVISION 0.2 10*3/uL Normal 0.0-0.2 [facility] Comment on above: Performed By: #### L [id number], [id number] ####Fur Comber: TRESSA SANTIZO ([id number])[facility] ([facility])[address] [place] [address] [place] BASOPHILS TOTAL PER COUNTED LEUKOCYTES BY MANUAL COUNT 2 Normal [facility] Comment on above: Performed By: #### L [id number], [id number] ####Fur Comber: TRESSA SANTIZO ([phone])[facility] ([facility])[address] [place] [address] [place] BASOPHILS/100 LEUKOCYTES IN BLOOD-CELLAVISION 2 % Normal 0-2 [facility] Comment on above: Performed By: #### L [id number], [id number] ####Fur Comber: TRESSA CHRISJAVY ([phone])[facility] [place] ([facility])[address] [place] [address] [place] BLASTS TOTAL PER COUNTED LEUKOCYTES BY MANUAL COUNT [facility] Comment on above: Performed By: #### L [id number], [id number] ####Fur Comber: TRESSA SANTIZO ([phone])[facility] [place] ([facility])[address] [place] [address] [place] EOSINOPHILS (10*3/UL) IN BLOOD-CELLAVISION 0.3 10*3/uL Normal 0.0-0.5 [facility] Comment on above: Performed By: #### L [id number], [id number] ####Fur Comber: TRESSA CHRISJAVY ([phone])[facility] ([facility])[address] [place] [address] [place] EOSINOPHILS TOTAL PER COUNTED LEUKOCYTES BY MANUAL COUNT 3 High 0-1 [facility] Comment on above: Performed By: #### L [id number], [id number] ####Fur Comber: TRESSA SANTIZO ([phone])[facility] [place] ([facility])[address] [place] [address] [place] EOSINOPHILS/100 LEUKOCYTES IN BLOOD-CELLAVISION 3 % Normal 0-6 [facility] Comment on above: Performed By: #### L [id number], [id number] ####Fur Comber: TRESSA SANTIZO ([phone])[facility] [place] ([facility])[address] [place] [address] [place] LYMPHOCYTES (10*3/UL) IN BLOOD-CELLAVISION 4.3 10*3/uL Normal 1.0-4.3 [facility] Comment on above: Performed By: #### L [id number], [id number] ####Fur Comber: TRESSA SANTIZO ([id number])[facility] [place] ([facility])[address] LYMPHOCYTES TOTAL PER COUNTED LEUKOCYTES BY MANUAL COUNT 38 Normal [facility] Comment on above: Performed By: #### L [id number], [id number] ####Fur Comber: TRESSA SANTIZO ([id number])[facility] [place] ([facility])[address] [place] [address] [place] LYMPHOCYTES/100 LEUKOCYTES IN BLOOD-CELLAVISION 38 % Normal 15-45 [facility] Comment on above: Performed By: #### L [id number], [id number] ####Fur Comber: TRESSA SANTIZO ([id number])[facility] [place] ([facility])[address] METAMYELOCYTES TOTAL PER COUNTED LEUKOCYTES BY MANUAL COUNT [facility] Comment on above: Performed By: #### L [id number], [id number] ####Fur Comber: TRESSA CHRISJAVY ([id number])[facility] [place] ([facility])[address] [place] [address] [place] MONOCYTES (10*3/UL) IN BLOOD-CELLAVISION 0.1 10*3/uL Normal 0.0-0.9 [facility] Comment on above: Performed By: #### L [id number], [id number] ####Fur Comber: TRESSA SANTIZO ([phone])[facility] [place] ([facility])[address] [place] [address] [place] MONOCYTES TOTAL PER COUNTED LEUKOCYTES BY MANUAL COUNT 1 Normal [facility] Comment on above: Performed By: #### L [id number], [id number] ####Fur Comber: TRESSA SANTIZO ([id number])[facility] [place] ([facility])[address] [place] [address] [place] MONOCYTES/100 LEUKOCYTES IN BLOOD-JOSE 1 % Low 5-13 [facility] Comment on above: Performed By: #### L [id number], [id number] ####Fur Comber: TRESSA SANTIZO ([phone])[facility] [place] ([facility])[address] [place] [address] [place] MYELOCYTES COUNTED BY MANUAL COUNT Normal [facility] Comment on above: Performed By: #### L [id number], [id number] ####Fur Comber: TRESSA SANTIZO ([phone])[facility] [place] ([facility])[address] [place] [address] [place] NEUTROPHILS TOTAL PER COUNTED LEUKOCYTES BY MANUAL COUNT 56 Normal [facility] Comment on above: Performed By: #### L [id number], [id number] ####Fur Comber: TRESSA SANTIZO ([id number])[facility] [place] ([facility])[address] [place] [address] [place] PROMYELOCYTES TOTAL PER COUNTED LEUKOCYTES BY MANUAL COUNT Normal [facility] Comment on above: Performed By: #### L [id number], [id number] ####Fur Comber: TRESSA SANTIZO ([id number])[facility] [place] ([facility])[address] [place] [address] [place] RBC MORPHOLOGY IN BLOOD Normal [facility] Comment on above: Performed By: #### L [id number], [id number] ####Fur Comber: TRESSA SANTIZO ([id number])[facility] [place] ([facility])[address] [place] [address] [place] SEGMENTED NEUTROPHILS (10*3/UL) IN BLOOD-CELLAVISION 6.3 10*3/uL Normal 1.8-7.5 [facility] Comment on above: Performed By: #### L [id number], [id number] ####Fur Comber: TRESSA SANTIZO ([phone])[facility] [place] [address] SEGMENTED NEUTROPHILS/100 LEUKOCYTES-CE 56 % Normal 38-82 [facility] Comment on above: Performed By: #### L [id number], [id number] ####Fur Comber: TRESSA SANTIZO ([id number])[facility] ([facility])[address] [place] [address] UNCLASSIFIED CELLS TOTAL PER COUNTED LEUKOCYTES BY MANUAL COUNT Normal [facility] Comment on above: Performed By: #### L [id number], [id number] ####Fur Comber: TRESSA SANTIZO ([id number])[facility] ([facility])[address] [place] [address] VARIANT LYMPHOCYTES TOTAL PER COUNTED LEUKOCYTES BY MANUAL COUNT Normal [facility] Comment on above: Performed By: #### L [id number], [id number] ####Fur Comber: TRESSA SANTIZO ([phone])[facility] ([facility])[address] [place] [address] No Panel InformationOrdered By: Daniel Allen on 04-22-2024 Interpretation and review of laboratory results Abnormal [facility] No Panel Informationon 04-22 Interpretation and review of laboratory results Normal [facility]formed by: [facility], [address] [place] [address] CLIA ID: [id number] [facility] Interpretation and review of laboratory results Abnormal [facility] Atypical Lymphocytes Manual [facility] Bands Manual [facility] Basophils Manual [address] [facility] Blasts Manual [facility] Eosinophils Manual 3 High 0 - [address] [facility] Interpretation and review of laboratory results Abnormal [facility] Lymphocytes Manual [address] [facility] Metamyelocytes Manual [facility] Monocytes Manual [address] [facility] Myelocytes Manual [facility] Neutrophils Manual [address] [facility] Promyelocytes Manual [facility] Unclassified Cells, Manual [facility] COCAINE METAB. SCREEN Negative [facility] The expected value f or all [...] is needed, request confirmation under separate order. [facility] Interpretation and review of laboratory results Abnormal [facility] No Panel InformationOrdered By: Dee Viramontes on 04-22-2024 Interpretation and review of laboratory results Abnormal [facility] OSMOLALITY, URINE 154 Low [facility] OSMOLALITY, SERUMon 04-22-20 24 OSMOLALITY, SERUM 333 mOsm/kg High 280-300 [facility] Comment on above: Performed By: #### L [id number] ####Fur Comber: TRESSA SANTIZO ([phone])[facility] OSMOLALITY, URINEon 04-22-20 24 OSMOLALITY, URINE 154 mOsm/kg Low 300-1000 [facility] Comment on above: Performed By: #### L [id number], [id number], [id number] ####Fur Comber: TRESSA SANTIZO ([phone])[facility] ([facility])[address] [place] [address] Progress Noteon 04-22-2024 Progress Note Normal [facility] SARS-COV-2 ANTIGENon 024 SARS-COV-2 ANTIGEN Normal [facility] Comment on above: Performed By: #### L [id number] ####Fur Comber: TRESSA SANTIZO ([id number])[facility] SARS-CoV-2 (COVID-19) Ag IA. rapid Ql (Resp)Ordered By: Aylin Moran on 04-22-2024 Interpretation and review of laboratory results Normal [facility] SODIUM, URINE, RANDOMon -0 Sodium (U) [Moles/Vol] 7 mmol/L Low 30-90 [facility] Comment on above: Performed By: #### L [id number], [id number], [id number] ####Fur Comber: TRESSA SANTIZO ([id number])[facility] ([facility])[address] [place] [address] Urinalysis complete panel (U )on 04-22-2024 Bilirubin Ql (U) Negative Negative mg/dL [facility] Clarity (U) Clear Clear [facility] Color (U) Colorless Lt. Yellow [facility] Glucose Ql (U) Normal Normal (<70) mg/dL [facility] Hemoglobin Ql (U) Negative Negative mg/dL [facility] Interpretation and review of laboratory results Abnormal [facility] Ketones (U) [Mass/Vol] Negative Negat zenia mg/dL [facility] Leukocyte esterase Test strip Ql (U) Negative Negative Emma/uL [facility] Nitrite Ql (U) Negative Negative [facility] pH (U) 5.5 [pH] 5.0 - 8.[address] [facility] Protein (U) [Mass/Vol] Negative Negat zenia mg/dL [facility] Specific gravity (U) [Rel density] 1.003 Low 1.005 - 1.[address] [facility] Urobilinogen (U) [Mass/Vol] Normal Normal (0-1) mg/dL [facility] ALCOHOL, MEDICALon ALCOHOL MEDICAL < Normal <10.0 [facility] Comment on above: Result Comment: Alco hol cutoff: <10.00 mg/dL = None Detected Performed By: #### 4 [id number] #### [facility] [address] [place] [address] Eunice Rodriguez M.D. [id number] BASIC METABOLIC PANELon 03-20 Anion gap [Moles/Vol] 17 mmol/L Normal 10-20 [facility] Comment on above: Order Comment: [facility] has implemented the eGFR calculation approach that does not have a coefficient for race that conforms to the NKF-ASN Task Force Recommendations. Performed By: #### 4 [id number] #### [facility] [address] [place], [place] [address] Eunice Rodriguez M.D. [id number] Calcium [Mass/Vol] 9.7 mg/dL Normal 8.4-10.2 [facility] Comment on above: Order Comment: [facility] has implemented the eGFR calculation approach that does not have a coefficient for race that conforms to the NKF-ASN Task Force Recommendations. Performed By: #### 4 [id number] #### [facility] [address] [place], [place] [address] Eunice Rodriguez M.D. [id number] Chloride [Moles/Vol] 103 mmol/L Normal 98-108 [facility] Comment on above: Order Comment: [facility] has implemented the eGFR calculation approach that does not have a coefficient for race that conforms to the NKF-ASN Task Force Recommendations. Performed By: #### 4 [id number] #### [facility] [address] [place], [place] [address] Eunice Rodriguez M.D. [id number] Creatinine [Mass/Vol] 1.01 mg/dL Normal 0.80-1.30 [facility] Comment on above: Order Comment: [facility] has implemented the eGFR calculation approach that does not have a coefficient for race that conforms to the NKF-ASN Task Force Recommendations. Performed By: #### 4 [id number] #### [facility] [address] [place], [place] [address] Eunice Rodriguez M.D. [id number] EGFR 83 mL/min/1.73 m2 Normal >=60 [facility] Comment on above: Order Comment: [facility] has implemented the eGFR calculation approach that does not have a coefficient for race that conforms to the NKF-ASN Task Force Recommendations. Result Comment: Brie mated GFR was calculated using the 2020 CKD-EPI creatinine equation. Performed By: #### 4 [id number] #### [facility] [address] [place], [place] [address] Eunice Rodriguez M.D. [id number] Glucose [Mass/Vol] 101 mg/dL High 65-99 [facility] Comment on above: Order Comment: [facility] has implemented the eGFR calculation approach that does not have a coefficient for race that conforms to the NKF-ASN Task Force Recommendations. Performed By: #### 4 [id number] #### [facility] [address] [place], [place] [address] Eunice Rodriguez M.D. [id number] HCO3 (Bld) [Moles/Vol] 24 mmol/L Normal 21-32 [facility] Comment on above: Order Comment: [facility] has implemented the eGFR calculation approach that does not have a coefficient for race that conforms to the NKF-ASN Task Force Recommendations. Performed By: #### 4 [id number] #### [facility] [address] [place], [place] [address] Eunice Rodriguez M.D. [id number] Potassium [Moles/Vol] 4.0 mmol/L Normal 3.5-5.1 [facility] Comment on above: Order Comment: [facility] has implemented the eGFR calculation approach that does not have a coefficient for race that conforms to the NKF-ASN Task Force Recommendations. Performed By: #### 4 [id number] #### [facility] [address] [place], [place] [address] Eunice Rodriguez M.D. [id number] Sodium [Moles/Vol] 140 mmol/L Normal 135-145 [facility] Comment on above: Order Comment: [facility] has implemented the eGFR calculation approach that does not have a coefficient for race that conforms to the NKF-ASN Task Force Recommendations. Performed By: #### 4 [id number] #### [facility] [address] [place], [place] [address] Eunice Rodriguez M.D. [id number] Urea nitrogen [Mass/Vol] 8 mg/dL Normal 8-25 [facility] Comment on above: Order Comment: [facility] has implemented the eGFR calculation approach that does not have a coefficient for race that conforms to the NKF-ASN Task Force Recommendations. Performed By: #### 4 [id number] #### [facility] [address] [place], [place] [address] Eunice Rodriguez M.D. [id number] Urea nitrogen/Creatinine [Mass ratio] 7.9 mg/mg Low 10.0-20.0 [facility] Comment on above: Order Comment: [facility] has implemented the eGFR calculation approach that does not have a coefficient for race that conforms to the NKF-ASN Task Force Recommendations. Performed By: #### 4 6124 #### [facility] [address] [place] [address] Eunice Rodriguez M.D. [id number] CBC WITH AUTO DIFFERENTIALon 04-09-2024 AUTO NRBC 0.0 % Normal [facility] Comment on above: Performed By: #### L [id number] #### [facility] [address] [place] [address] Eunice Rodriguez M.D. [id number] AUTO NRBC ABS COUNT 0.00 K/mcL Normal 0.00-0.00 [facility] Comment on above: Performed By: #### L [id number] #### [facility] [address] [place] [address] Eunice Rodriguez M.D. [id number] BASOPHILS ABSOLUTE COUNT 0.03 K/mcL Normal 0.00-0.30 [facility] Comment on above: Performed By: #### L [id number] #### [facility] [address] [place] [address] Eunice Rodriguez M.D. [id number] Basophils/100 WBC (Bld) 0.5 % Normal [facility] Comment on above: Performed By: #### L [id number] #### [facility] [address] [place] [address] Eunice Rodriguez M.D. [id number] Eosinophils (Bld) [#/Vol] 0.05 10*3/uL Normal 0.00-0.50 [facility] Comment on above: Performed By: #### L [id number] #### [facility] [address] [place] [address] Eunice Rodriguez M.D. [id number] Eosinophils/100 WBC (Bld) 0.9 % [facility] Comment on above: Performed By: #### L [id number] #### [facility] [address] [place] [address] Eunice Rodriguez M.D. [id number] Erythrocyte distribution width (RBC) [Ratio] 15.2 % High 11.6-14.8 [facility] Comment on above: Performed By: #### L [id number] #### [facility] [address] [place] [address] Eunice Rodriguez M.D. [id number] Hematocrit (Bld) [Volume fraction] 37.1 % Low 41.0-53.0 [facility] Comment on above: Performed By: #### L [id number] #### [facility] [address] [place] [address] Eunice Rodriguez M.D. [id number] Hemoglobin (Bld) [Mass/Vol] 12.4 g/dL Low 13.5-17.5 [facility] Comment on above: Performed By: #### L [id number] #### [facility] [address] [place] [address] Eunice Rodriguez M.D. [id number] IG ABSOLUTE 0.04 K/mcL Normal 0.00-0.30 [facility] Comment on above: Performed By: #### L [id number] #### [facility] [address] [place] [address] Eunice Rodriguez M.D. [id number] IG PERCENT 0.70 % Normal [facility] Comment on above: Result Comment: The IG parameter is the percentage of metamyelocytes, myelocytes and promyelocytes. An immature granulocyte count (IG) of 1% or more suggests the possibility of infection, an IG count of 3% is very likely related to an infection. Performed By: #### L [id number] #### [facility] [address] [place] [address] Eunice Rodriguez M.D. [id number] Lymphocytes (Bld) [#/Vol] 1.71 10*3/uL Normal 0.90-4.00 [facility] Comment on above: Performed By: #### L [id number] #### [facility] [address] [place], [place] [address] Eunice Rodriguez M.D. [id number] Lymphocytes/100 WBC (Bld) 30.1 % Normal [facility] Comment on above: Performed By: #### L [id number] #### [facility] [address] [place], [place] [address] Eunice Rodriguez M.D. [id number] MCH (RBC) [Entitic mass] 31.3 pg Normal 26.0-34.0 [facility] Comment on above: Performed By: #### L [id number] #### [facility] [address] [place] [address] Eunice Rodriguez M.D. [id number] MCV (RBC) [Entitic vol] 93.7 fL Normal 80.0-100.0 [facility] Comment on above: Performed By: #### L [id number] #### [facility] [address] [place] [address] Eunice Rodriguez M.D. [id number] MEAN CORPUSCULAR HEMOGLOBIN CONC 33.4 g/dL Normal 31.0-37.0 [facility] Comment on above: Performed By: #### L [id number] #### [facility] [address] [place] [address] Eunice Rodriguez M.D. [id number] Monocytes (Bld) [#/Vol] 0.50 10*3/uL Normal 0.30-0.90 [facility] Comment on above: Performed By: #### L [id number] #### [facility] [address] [place] [address] Eunice Rodriguez M.D. [id number] Monocytes/100 WBC (Bld) 8.8 % Normal [facility] Comment on above: Performed By: #### L [id number] #### [facility] [address] [place], [place] [address] Eunice Rodriguez M.D. [id number] NEUTROPHILS ABSOLUTE COUNT 3.36 K/mcL Normal 1.70-7.00 [facility] Comment on above: Performed By: #### L [id number] #### [facility] [address] [place], [place] [address] Eunice Rodriguez M.D. [id number] Neutrophils/100 WBC (Bld) 59.0 % Normal [facility] Comment on above: Performed By: #### L [id number] #### [facility] [address] [place] [address] Eunice Rodriguez M.D. [id number] Platelet mean volume (Bld) [Entitic vol] 8.9 fL Low 9.4-12.4 [facility] Comment on above: Performed By: #### L [id number] #### [facility] [address] [place] [address] Eunice Rodriguez M.D. [id number] Platelets (Bld) [#/Vol] 112 10*3/uL Low 150-400 [facility] Comment on above: Performed By: #### L [id number] #### [facility] [address] [place] [address] Eunice Rodriguez M.D. [id number] RBC (Bld) [#/Vol] 3.96 10*6/uL Low 4.50-5.90 [facility] Comment on above: Performed By: #### L [id number] #### [facility] [address] [place] [address] Eunice Rodriguez M.D. [id number] WBC (Bld) [#/Vol] 5.69 10*3/uL Normal 4.50-11.00 [facility] Comment on above: Performed By: #### L [id number] #### [facility] [address] [place] [address] Eunice Rodriguez M.D. [id number] DRUGS OF ABUSE SCREEN, URINE on 04-09-2024 AMPHETAMINE SCREEN, URINE Not detected Normal None Detected [facility] Comment on above: Order Comment: Scree n results should be used for treatment purposes only. Specimen will be kept for 2 weeks, if the sample is adequate. Confirmation testing can be initiated by calling the lab within 2 weeks. Result Comment: Urin e Amphetamine Cutoff: < 1000 ng/mL = None Detected Performed By: #### 4 [id number] #### [facility] [address] [place] [address] Eunice Rodriguez M.D. [id number] BARBITURATE SCREEN URINE Positive Abnormal None Detected [facility] Comment on above: Order Comment: Scree n results should be used for treatment purposes only. Specimen will be kept for 2 weeks, if the sample is adequate. Confirmation testing can be initiated by calling the lab within 2 weeks. Result Comment: Urin e Barbiturates Cutoff: < 200 ng/mL = None Detected Performed By: #### 4 [id number] #### [facility] [address] [place] [address] Eunice Rodriguez M.D. [id number] BENZODIAZEPINE SCREEN, URINE Not detected Normal None Detected [facility] Comment on above: Order Comment: Scree n results should be used for treatment purposes only. Specimen will be kept for 2 weeks, if the sample is adequate. Confirmation testing can be initiated by calling the lab within 2 weeks. Result Comment: Urin e Benzodiazepine Cutoff: < 200 ng/mL = None Detected Performed By: #### 4 [id number] #### [facility] [address] [place] [address] Eunice Rodriguez M.D. [id number] BUPRENORPHINE, URINE Not detected Normal None Detected [facility] Comment on above: Order Comment: Scree n results should be used for treatment purposes only. Specimen will be kept for 2 weeks, if the sample is adequate. Confirmation testing can be initiated by calling the lab within 2 weeks. Result Comment: Urin e Buprenorphine Cutoff: < 5 ng/mL = None Detected Performed By: #### 4 [id number] #### [facility] [address] [place] [address] Eunice Rodriguez M.D. [id number] CANNABINOID SCREEN URINE Positive Abnormal None Detected [facility] Comment on above: Order Comment: Scree n results should be used for treatment purposes only. Specimen will be kept for 2 weeks, if the sample is adequate. Confirmation testing can be initiated by calling the lab within 2 weeks. Result Comment: Urin e Cannabinoids Cutoff: < 50 ng/mL = None Detected Performed By: #### 4 [id number] #### [facility] [address] [place] [address] Eunice Rodriguez M.D. [id number] COCAINE, SCREEN URINE Not detected Normal None Detected [facility] Comment on above: Order Comment: Scree n results should be used for treatment purposes only. Specimen will be kept for 2 weeks, if the sample is adequate. Confirmation testing can be initiated by calling the lab within 2 weeks. Result Comment: Urin e Cocaine Cutoff: < 300 ng/mL = None Detected Performed By: #### 4 [id number] #### [facility] [address] [place] [address] Eunice Rodriguez M.D. [id number] FENTANYL, URINE Not detected Normal None Detected [facility] Comment on above: Order Comment: Scree n results should be used for treatment purposes only. Specimen will be kept for 2 weeks, if the sample is adequate. Confirmation testing can be initiated by calling the lab within 2 weeks. Result Comment: Urin e Fentanyl Cutoff: < 1 ng/mL = None Detected Performed By: #### 4 [id number] #### [facility] [address] [place] [address] Eunice Rodriguez M.D. [id number] METHADONE SCREEN, URINE Not detected Normal None Detected [facility] Comment on above: Order Comment: Scree n results should be used for treatment purposes only. Specimen will be kept for 2 weeks, if the sample is adequate. Confirmation testing can be initiated by calling the lab within 2 weeks. Result Comment: Urin e Methadone Cutoff: < 300 ng/mL = None Detected Performed By: #### 4 [id number] #### [facility] [address] [address] Eunice Rodriguez M.D. [id number] OPIATE SCREEN URINE Not detected Normal None Detected [facility] Comment on above: Order Comment: Scree n results should be used for treatment purposes only. Specimen will be kept for 2 weeks, if the sample is adequate. Confirmation testing can be initiated by calling the lab within 2 weeks. Result Comment: Urin e Opiates Cutoff: < 300 ng/mL = None Detected Performed By: #### 4 [id number] #### [facility] [address] [address] Eunice Rodriguez M.D. [id number] OXYCODONE SCREEN, URINE Not detected Normal None Detected [facility] Comment on above: Order Comment: Scree n results should be used for treatment purposes only. Specimen will be kept for 2 weeks, if the sample is adequate. Confirmation testing can be initiated by calling the lab within 2 weeks. Result Comment: Urin e Oxycodone Cutoff: < 100 ng/mL = None Detected Performed By: #### 4 [id number] #### [facility] [address] [address] Eunice Rodriguez M.D. [id number] URINALYSISon 04-09-2024 BACTERIA, URINE None Seen Normal None Seen [facility] Comment on above: Order Comment: Micro scopic examination is performed on all urinalysis samples and only positive findings are reported. The test for blood on the chemical analytic portion of urinalysis may also be positive due to hemoglobinuria and myoglobinuria and if red blood cells are present they are quantified by microscopic examination. Performed By: #### 4 [id number] #### [facility] [address] [address] Eunice Rodriguez M.D. [id number] BILIRUBIN, URINE Negative Normal Negative [facility] Comment on above: Order Comment: Micro scopic examination is performed on all urinalysis samples and only positive findings are reported. The test for blood on the chemical analytic portion of urinalysis may also be positive due to hemoglobinuria and myoglobinuria and if red blood cells are present they are quantified by microscopic examination. Performed By: #### 4 [id number] #### [facility] [address] [place], [place] [address] Eunice Rodriguez M.D. [id number] BLOOD, URINE Negative Normal Negative [facility] Comment on above: Order Comment: Micro scopic examination is performed on all urinalysis samples and only positive findings are reported. The test for blood on the chemical analytic portion of urinalysis may also be positive due to hemoglobinuria and myoglobinuria and if red blood cells are present they are quantified by microscopic examination. Performed By: #### 4 [id number] #### [facility] [address] [place], [place] [address] Eunice Rodriguez M.D. [id number] Clarity (U) Clear Normal Clear [facility] Comment on above: Order Comment: Micro scopic examination is performed on all urinalysis samples and only positive findings are reported. The test for blood on the chemical analytic portion of urinalysis may also be positive due to hemoglobinuria and myoglobinuria and if red blood cells are present they are quantified by microscopic examination. Performed By: #### 4 [id number] #### [facility] [address] [place], [place] [address] Eunice Rodriguez M.D. [id number] Color (U) Colorless Normal Colorless, Yellow [facility] Comment on above: Order Comment: Micro scopic examination is performed on all urinalysis samples and only positive findings are reported. The test for blood on the chemical analytic portion of urinalysis may also be positive due to hemoglobinuria and myoglobinuria and if red blood cells are present they are quantified by microscopic examination. Performed By: #### 4 [id number] #### [facility] [address] [place], [place] [address] Eunice Rodriguez M.D. [id number] Glucose Ql (U) Negative Normal Negative [facility] Comment on above: Order Comment: Micro scopic examination is performed on all urinalysis samples and only positive findings are reported. The test for blood on the chemical analytic portion of urinalysis may also be positive due to hemoglobinuria and myoglobinuria and if red blood cells are present they are quantified by microscopic examination. Performed By: #### 4 [id number] #### [facility] [address] [place], [place] [address] Eunice Rodriguez M.D. [id number] Ketones Ql (U) Negative Normal Negative [facility] Comment on above: Order Comment: Micro scopic examination is performed on all urinalysis samples and only positive findings are reported. The test for blood on the chemical analytic portion of urinalysis may also be positive due to hemoglobinuria and myoglobinuria and if red blood cells are present they are quantified by microscopic examination. Performed By: #### 4 [id number] #### [facility] [address] [place], [place] [address] Eunice Rodriguez M.D. [id number] Leukocyte esterase Test strip Ql (U) Negative Normal Negative [facility] Comment on above: Order Comment: Micro scopic examination is performed on all urinalysis samples and only positive findings are reported. The test for blood on the chemical analytic portion of urinalysis may also be positive due to hemoglobinuria and myoglobinuria and if red blood cells are present they are quantified by microscopic examination. Performed By: #### 4 [id number] #### [facility] [address] [place], [place] [address] Eunice Rodriguez M.D. [id number] NITRITE, URINE Negative Normal Negative [facility] Comment on above: Order Comment: Micro scopic examination is performed on all urinalysis samples and only positive findings are reported. The test for blood on the chemical analytic portion of urinalysis may also be positive due to hemoglobinuria and myoglobinuria and if red blood cells are present they are quantified by microscopic examination. Performed By: #### 4 [id number] #### [facility] [address] [place], [place] [address] Eunice Rodriguez M.D. [id number] pH (U) 5.0 [pH] Normal 5.0-7.0 [facility] Comment on above: Order Comment: Micro scopic examination is performed on all urinalysis samples and only positive findings are reported. The test for blood on the chemical analytic portion of urinalysis may also be positive due to hemoglobinuria and myoglobinuria and if red blood cells are present they are quantified by microscopic examination. Performed By: #### 4 6625 #### [facility] [address] [place], [place] [address] Eunice Rodriguez M.D. [id number] PROTEIN, URINE Negative Normal Negative [facility] Comment on above: Order Comment: Micro scopic examination is performed on all urinalysis samples and only positive findings are reported. The test for blood on the chemical analytic portion of urinalysis may also be positive due to hemoglobinuria and myoglobinuria and if red blood cells are present they are quantified by microscopic examination. Performed By: #### 4 [id number] #### [facility] [address] [place], [place] [address] Eunice Rodriguez M.D. [id number] RBC, URINE < Normal 0-3 [facility] Comment on above: Order Comment: Micro scopic examination is performed on all urinalysis samples and only positive findings are reported. The test for blood on the chemical analytic portion of urinalysis may also be positive due to hemoglobinuria and myoglobinuria and if red blood cells are present they are quantified by microscopic examination. Performed By: #### 4 [id number] #### [facility] [address] [place], [place] [address] Eunice Rodriguez M.D. [id number] Specific gravity (U) [Rel density] 1.004 Low 1.005-1.025 [facility] Comment on above: Order Comment: Micro scopic examination is performed on all urinalysis samples and only positive findings are reported. The test for blood on the chemical analytic portion of urinalysis may also be positive due to hemoglobinuria and myoglobinuria and if red blood cells are present they are quantified by microscopic examination. Performed By: #### 4 6625 #### [facility] [address] [place], [place] [address] Eunice Rodriguez M.D. [id number] UROBILINOGEN, URINE <2.0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 BENZODIAZIPINE Negative Normal < 200 ng/mL [facility] Comment on above: Performed By: #### L 505.5000, L501.9100, L500.4050, L100.0100, L300.3900 #### [facility] [address] [place], [address] COCAINE Negative Normal < 300 ng/mL [facility] Comment on above: Performed By: #### L 505.5000, L501.9100, L500.4050, L100.0100, L300.3900 #### [facility] [address] [place], [address] ECSTACY Negative Normal < 500 ng/mL [facility] Comment on above: Performed By: #### L 505.5000, L501.9100, L500.4050, L100.0100, L300.3900 #### [facility] [address] [place], [place], [facility] METHADONE Negative Normal < 300 ng/mL [facility] Comment on above: Performed By: #### L 505.5000, L501.9100, L500.4050, L100.0100, L300.3900 #### [facility] [address] [place], [address] OPIATES Negative Normal < 300 ng/mL [facility] Comment on above: Performed By: #### L 505.5000, L501.9100, L500.4050, L100.0100, L300.3900 #### [facility] [address] [place], [address] PCP Negative Normal < 25 ng/mL [facility] Comment on above: Performed By: #### L 505.5000, L501.9100, L500.4050, L100.0100, L300.3900 #### [facility] [address] [place], [place], [facility] THC Positive Abnormal < 50 ng/mL [facility] Comment on above: Performed By: #### L 505.5000, L501.9100, L500.4050, L100.0100, L300.3900 #### [facility] [address] [place], [address] VISTA UDS PH 6 Normal [facility] Comment on above: Performed By: #### L 505.5000, L501.9100, L500.4050, L100.0100, L300.3900 #### [facility] [address] [place], [address] Vital signson 04-05-2024 Heart rate 93 /min bpm [facility] BETA HYDROXYBUTYRATEon 04-04 BETA HYDROXYBUTYRATE 2.29 mg/dL Normal 0.20-2.81 [facility] Comment on above: Performed By: #### L [id number], [id number], [id number], [id number] ####Fur Comber: ARA WRIGHT ([id number])[facility] DUNCAN RITTMAN (SWRLAB)[address] [place] [address] [place] BLOOD GAS, VENOUS (SWR AND S HC)on 04-04-2024 BASE EXCESS (MMOL/L) IN VENOUS BLOOD -8.0 mmol/L Low -3.0-3.0 [facility] Comment on above: Performed By: #### L [id number] ####Fur Comber: ARA WRIGHT ([id number])[facility]ENTER[facility] DUNCAN RITTMAN (SWRLAB)[address] [place] [address] [place] CARBON DIOXIDE (MM HG) IN VENOUS BLOOD 35 mm(Hg) Low 40-55 [facility] Comment on above: Performed By: #### L [id number] ####Fur Comber: ARA WRIGHT ([id number])[facility]ENTER[facility] DUNCAN RITTMAN (SWRLAB)[address] [place] [address] [place] CO2 [Moles/Vol] 19.0 mmol/L Low 24.0-28.0 [facility] Comment on above: Performed By: #### L [id number] ####Fur Comber: ARA WRIGHT ([id number])[facility] DUNCAN RITTMAN (SWRLAB)[address] [place] [address] [place] HCO3 (Bld) [Moles/Vol] 17.9 mmol/L Low 23.0-27.0 [facility] Comment on above: Performed By: #### L [id number] ####Fur Comber: ARA WRIGHT ([id number])[facility]ENTER[facility] DUNCAN RITTMAN (SWRLAB)[address] [place] [address] OXYGEN (MM HG) IN VENOUS BLOOD 31 mm(Hg) Normal [facility] Comment on above: Performed By: #### L [id number] ####Fur Comber: ARA WRIGHT ([id number])[facility] DUNCAN RITTMAN (SWRLAB)[address] [place] [address] OXYGEN SATURATION (%) IN VENOUS BLOOD 56.0 % Low 60.0-80.0 [facility] Comment on above: Performed By: #### L [id number] ####Fur Comber: ARA WRIGHT ([id number])[facility]ENTER[facility] DUNCAN RITTMAN (SWRLAB)[address] [place] [address] pH (Bld) 7.323 [pH] Normal 7.310-7.410 [facility] Comment on above: Performed By: #### L [id number] ####Fur Comber: ARA WRIGHT ([id number])[facility]ENTER[facility] DUNCAN RITTMAN (SWRLAB)[address] [place] [address] SOURCE OF OXYGEN Room Air Normal [facility] Comment on above: Performed By: #### L [id number] ####Fur Comber: ARA WRIGHT ([id number])[facility]ENTER[facility] DUNCAN RITTMAN (SWRLAB)[address] [place] [address] CBC W Auto Differential pane l (Bld)on 04-04-2024 Basophils (Bld) [#/Vol] 0.0 10*3/uL 0.0 - 0.2 10*3/uL [facility] Basophils/100 WBC (Bld) 0.6 % 0.0 - 2.0 % [facility] Eosinophils (Bld) [#/Vol] 0.0 10*3/uL 0.0 - 0.5 10*3/uL [facility] Eosinophils/100 WBC (Bld) 0.2 % 0.0 - 6.0 % [facility] Erythrocyte distribution width (RBC) [Ratio] 14.0 % 11.5 - 15.0 % [facility] Hematocrit (Bld) [Volume fraction] 31.7 % Low 40.0 - 52.0 % [facility] Hemoglobin (Bld) [Mass/Vol] 11.2 g/dL Low 13.0 - 18.0 g/dL [facility] Immature granulocytes (Bld) [#/Vol] 0.0 10*3/uL NINF - 0.1 10*3/uL [facility] Immature granulocytes/100 WBC (Bld) 0.2 % 0.0 - 2.0 % [facility] Interpretation and review of laboratory results Abnormal [facility] IPF [address] [facility] Lymphocytes (Bld) [#/Vol] 1.8 10*3/uL 1.0 - 4.3 10*3/uL [facility] Lymphocytes/100 WBC (Bld) 38.2 % 15.0 - 45.0 % [facility] MCH (RBC) [Entitic mass] 31.1 pg 26.0 - 34.[address] [facility] MCHC (RBC) [Mass/Vol] 35.3 % 30.5 - 36.0 % [facility] MCV (RBC) [Entitic vol] 88.1 fL 77.0 - 99.0 fL [facility] Monocytes (Bld) [#/Vol] 0.5 10*3/uL 0.0 - 0.9 10*3/uL [facility] Monocytes/100 WBC (Bld) 10.3 % 5.0 - 13.0 % [facility] Neutrophils (Bld) [#/Vol] 2.4 10*3/uL 1.8 - 7.5 10*3/uL [facility] Neutrophils/100 WBC (Bld) 50.5 % 38.0 - 82.0 % [facility] Nucleated RBC/100 WBC (Bld) [Ratio] 0.0 % [facility] Platelet mean volume (Bld) [Entitic vol] 8.4 fL Low 9.0 - 12.7 fL [facility] Platelets (Bld) [#/Vol] 110 10*3/uL Low 140 - 440 10*3/uL [facility] RBC (Bld) [#/Vol] 3.60 10*6/uL Low 4.40 - 5.9 0 10*6/uL [facility] WBC (Bld) [#/Vol] 4.7 10*3/uL 3.6 - 10.7 10*3/uL [facility] CBC WITH AUTO DIFFERENTIALon 04-04-2024 Basophils (Bld) [#/Vol] 0.0 10*3/uL Normal 0.0-0.2 [facility] Comment on above: Performed By: #### L [id number] ####Fur Comber: ARA WRIGHT ([id number])[facility]ENTEROctavia DUNCAN RITTMAN (SWRLAB)[address] [place] [address] Basophils/100 WBC (Bld) 0.6 % Normal 0.0-2.0 [facility] Comment on above: Performed By: #### L [id number] ####Fur Comber: ARA WRIGHT ([id number])[facility]ENTEROct[facility] DUNCAN RITTMAN (SWRLAB)[address] [place] [address] Eosinophils (Bld) [#/Vol] 0.0 10*3/uL Normal 0.0-0.5 [facility] Comment on above: Performed By: #### L [id number] ####Fur Comber: ARA WRIGHT ([id number])[facility]ENTEROct[facility] DUNCAN RITTMAN (SWRLAB)[address] [place] [address] Eosinophils/100 WBC (Bld) 0.2 % Normal 0.0-6.0 [facility] Comment on above: Performed By: #### L [id number] ####Fur Comber: ARA WRIGHT ([id number])[facility]ENTEROctavia DUNCAN RITTMAN (SWRLAB)[address] [place] [address] Erythrocyte distribution width (RBC) [Ratio] 14.0 % Normal 11.5-15.0 [facility] Comment on above: Performed By: #### L [id number] ####Fur Comber: ARA WRIGHT ([id number])[facility]ENTEROctavia DUNCAN RITTMAN (SWRLAB)[address] [place] [address] Hematocrit (Bld) [Volume fraction] 31.7 % Low 40.0-52.0 [facility] Comment on above: Performed By: #### L [id number] ####Fur Comber: ARA WRIGHT ([id number])HANNA DUNCAN RITTMAN (SWRLAB)[address] [place] [address] Hemoglobin (Bld) [Mass/Vol] 11.2 g/dL Low 13.0-18.0 [facility] Comment on above: Performed By: #### L [id number] ####Fur Comber: ARA WRIGHT ([id number])HANNA DUNCAN RITTMAN (SWRLAB)[address] [place] [address] IMMATURE GRANS % 0.2 % Normal 0.0-2.0 [facility] Comment on above: Performed By: #### L [id number] ####Fur Comber: ARA WRIGHT ([id number])[facility]ENTER[facility] DUNCAN RITTMAN (SWRLAB)[address] [place] [address] IMMATURE GRANS ABSOLUTE 0.0 10*3/uL Normal <0.1 [facility] Comment on above: Performed By: #### L [id number] ####Fur Comber: ARA WRIGHT ([id number])[facility]ENTEROctavia DUNCAN RITTMAN (SWRLAB)[address] [place] [address] [place] IPF 1 Normal [facility] Comment on above: Performed By: #### L [id number] ####Fur Comber: ARA WRIGHT ([id number])[facility]ENTER[facility] DUNCAN RITTMAN (SWRLAB)[address] [place] [address] [place] Lymphocytes (Bld) [#/Vol] 1.8 10*3/uL Normal 1.0-4.3 [facility] Comment on above: Performed By: #### L [id number] ####Fur Comber: ARA WRIGHT ([id number])HANNA DUNCAN RITTMAN (SWRLAB)[address] [place] [address] Lymphocytes/100 WBC (Bld) 38.2 % Normal 15.0-45.0 [facility] Comment on above: Performed By: #### L [id number] ####Fur Comber: ARA WRIGHT ([id number])[facility]ENTEROctavia DUNCAN RITTMAN (SWRLAB)[address] [place] [address] MCH (RBC) [Entitic mass] 31.1 pg Normal 26.0-34.0 [facility] Comment on above: Performed By: #### L [id number] ####Fur Comber: ARA WRIGHT ([id number])[facility]ENTEROctavia DUNCAN RITTMAN (SWRLAB)[address] [place] [address] MCHC 35.3 % Normal 30.5-36.0 [facility] Comment on above: Performed By: #### L [id number] ####Fur Comber: ARA WRIGHT ([id number])[facility] CENTEROctavia DUNCAN RITTMAN (SWRLAB)[address] [place] [address] MCV (RBC) [Entitic vol] 88.1 fL Normal 77.0-99.0 [facility] Comment on above: Performed By: #### L [id number] ####Fur Comber: ARA WRIGHT ([id number])[facility]ENTEROctavia DUNCAN RITTMAN (SWRLAB)[address] [place] [address] Monocytes (Bld) [#/Vol] 0.5 10*3/uL Normal 0.0-0.9 [facility] Comment on above: Performed By: #### L [id number] ####Fur Comber: ARA WRIGHT ([id number])[facility]ENTEROctavia DUNCAN RITTMAN (SWRLAB)[address] [place] [address] [place] Monocytes/100 WBC (Bld) 10.3 % Normal 5.0-13.0 [facility] Comment on above: Performed By: #### L [id number] ####Fur Comber: ARA WRIGHT ([id number])[facility]ENTEROctavia DUNCAN RITTMAN (SWRLAB)[address] [place] [address] NEUTROPHILS ABSOLUTE 2.4 10*3/uL Normal 1.8-7.5 [facility] Comment on above: Performed By: #### L [id number] ####Fur Comber: ARA WRIGHT ([id number])HANNA DUNCAN RITTMAN (SWRLAB)[address] [place] [address] [place] Neutrophils/100 WBC (Bld) 50.5 % Normal 38.0-82.0 [facility] Comment on above: Performed By: #### L [id number] ####Fur Comber: ARA WRIGHT ([id number])HANNA DUNCAN RITTMAN (SWRLAB)[address] [place] [address] [place] NRBC 0.0 /100 WBCs Normal 0.0-2.0 [facility] Comment on above: Performed By: #### L [id number] ####Fur Comber: ARA WRIGHT ([id number])HANNA DUNCAN RITTMAN (SWRLAB)[address] [place] [address] [place] Platelet mean volume (Bld) [Entitic vol] 8.4 fL Low 9.0-12.7 [facility] Comment on above: Performed By: #### L [id number] ####Fur Comber: ARA WRIGHT ([id number])HANNA DUNCAN RITTMAN (SWRLAB)[address] [place] [address] [place] Platelets (Bld) [#/Vol] 110 10*3/uL Low 140-440 [facility] Comment on above: Performed By: #### L [id number] ####Fur Comber: ARA WRIGHT ([id number])[facility]ENTEROctavia DUNCAN RITTMAN (SWRLAB)[address] [place] [address] [place] RBC (Bld) [#/Vol] 3.60 10*6/uL Low 4.40-5.90 [facility] Comment on above: Performed By: #### L [id number] ####Fur Comber: ARA WRIGHT ([id number])[facility]ENTEROctavia DUNCAN RITTMAN (SWRLAB)[address] [place] [address] [place] WBC (Bld) [#/Vol] 4.7 10*3/uL Normal 3.6-10.7 [facility] Comment on above: Performed By: #### L [id number] ####Fur Comber: ARA WRIGHT ([id number])[facility] CENTEROctavia GUSTAFSONTMAN (SWRLAB)[address] COMPREHENSIVE METABOLIC PANE Peter 04-04-2024 Albumin [Mass/Vol] 4.2 g/dL Normal 3.5-5.0 [facility] Comment on above: Performed By: #### L [id number], [id number], [id number], LAB17 ####Fur Comber: ARA WRIGHT ([id number])[facility]ENTEROctavia GUSTAFSONTMAN (SWRLAB)[address] [place] [address] ALP [Catalytic activity/Vol] 67 U/L Normal 38-126 [facility] Comment on above: Performed By: #### L AB46, [id number], [id number], LAB17 ####Fur Comber: ARA WRIGHT ([id number])[facility] CENTEROctavia DUNCAN RITTMAN (SWRLAB)[address] [place] [address] ALT [Catalytic activity/Vol] 17 U/L Normal 0-49 [facility] Comment on above: Performed By: #### L AB46, [id number], [id number], LAB17 ####Fur Comber: ARA WRIGHT ([id number])[facility]ENTEROctavia DUNCAN RITTMAN (SWRLAB)[address] [place] [address] Anion gap [Moles/Vol] 14 mmol/L High 3-13 [facility] Comment on above: Performed By: #### L AB46, [id number], [id number], LAB17 ####Fur Comber: ARA WRIGHT ([id number])[facility] CENTEROctavia DUNCAN RITTMAN (SWRLAB)[address] AST [Catalytic activity/Vol] 39 U/L Normal 15-46 [facility] Comment on above: Performed By: #### L AB46, [id number], [id number], LAB17 ####Fur Comber: ARA WRIGHT ([id number])[facility]ENTEROctavia DUNCAN RITTMAN (SWRLAB)[address] [place] [address] [place] Bilirubin [Mass/Vol] 1.0 mg/dL Normal 0.2-1.3 [facility] Comment on above: Performed By: #### L AB46, [id number], [id number], LAB17 ####Fur Comber: ARA WRIGHT ([id number])[facility]ENTEROctavia DUNCAN RITTMAN (SWRLAB)[address] [place] [address] Calcium [Mass/Vol] 8.8 mg/dL Normal 8.4-10.4 [facility] Comment on above: Performed By: #### Popeye AB46, [id number], [id number], LAB17 ####Fur Comber: ARA WRIGHT ([id number])[facility]ENTEROctavia DUNCAN RITTMAN (SWRLAB)[address] [place] [address] [place] Chloride [Moles/Vol] 98 mmol/L Normal 98-107 [facility] Comment on above: Performed By: #### L 46, [id number], [id number], LAB17 ####Fur Comber: ARA WRIGHT ([id number])[facility] CENTEROctavia DUNCAN RITTMAN (SWRLAB)[address] [place] [address] [place] CO2 [Moles/Vol] 16 mmol/L Low 22-30 [facility] Comment on above: Performed By: #### L AB46, [id number], [id number], LAB17 ####Fur Comber: ARA WRIGHT ([id number])[facility] CENTEROctavia DUNCAN RITTMAN (SWRLAB)[address] [place] [address] [place] Creatinine [Mass/Vol] 0.92 mg/dL Normal 0.66-1.25 [facility] Comment on above: Performed By: #### L AB46, [id number], [id number], LAB17 ####Fur Comber: ARA WRIGHT ([id number])[facility] CENTEROctavia GUSTAFSONTMAN (SWRLAB)[address] GLOMERULAR FILTRATION RATE ML/MIN/1.73 SQ M.PREDICTED >90.0 Normal >60.0 [facility] Comment on above: Result Comment: Calc ulation based on the Chronic Kidney Disease Epidemiology Collaboration (CKD-EPI) equation refit without adjustment for race Performed By: #### L AB46, [id number], [id number], LAB17 ####Fur Comber: ARA WRIGHT ([id number])[facility] CENTEROctavia GUSTAFSONTMAN (SWRLAB)[address] [place] [address] [place] Glucose [Mass/Vol] 97 mg/dL Normal 70-100 [facility] Comment on above: Performed By: #### L AB46, [id number], [id number], LAB17 ####Fur Comber: ARA WRIGHT ([id number])[facility] HOSPITALDAKOTAJAMAL GUSTAFSONTMAN (SWRLAB)[address] [place] [address] [place] Potassium [Moles/Vol] 3.5 mmol/L Normal 3.5-5.1 [facility] Comment on above: Performed By: #### L AB46, [id number], [id number], LAB17 ####Fur Comber: ARA WRIGHT ([id number])[facility] CENTEROctavia GUSTAFSONTMAN (SWRLAB)[address] [place] [address] [place] Protein [Mass/Vol] 7.2 g/dL Normal 6.3-8.2 [facility] Comment on above: Performed By: #### L AB46, [id number], [id number], LAB17 ####Fur Comber: ARA WRIGHT ([id number])[facility]ENTEROctavia DUNCAN RITTMAN (SWRLAB)[address] [place] [address] [place] Sodium [Moles/Vol] 128 mmol/L Low 135-145 [facility] Comment on above: Performed By: #### L AB46, [id number], [id number], LAB17 ####Fur Comber: ARA WRIGHT ([id number])[facility] IRISAN (SWRLAB)[address] Urea nitrogen [Mass/Vol] 8 mg/dL Low 9-20 [facility] Comment on above: Performed By: #### L AB46, [id number], [id number], LAB17 ####Fur Comber: ARA WRIGHT ([id number])[facility] SJMARILYN (SWRLAB)[address] CERVICAL SPINE WO IV CONT RASTon 04-04-2024 CT CERVICAL SPINE WO IV CONTRAST Normal [facility] CT Cervical spine WO contras ton 04-04-2024 [facility] 1960 [id number] Exam Date/Time: 04/04/2024 16:40 Procedure: CT CERVICAL [...] noncontrast study. Other: Lung apices are unremarkable. [facility] Don Melara MD - 04/04/2024 [facility] Name: [facility] NI : 1960 [id number] Exam Date/Time: 04/04/2024 16:40 Procedure: CT CERVICAL [...] Signed Date/Time: 04/04/2024 4:53 PM EDT [facility] Radiology Study observation (narrative) [facility] CT HEAD WO IV CONTRASTon CT HEAD WO IV CONTRAST Normal [facility] CT Head WO contraston 2023 Patient Name: [...] noncontrast study. Other: Lung apices are unremarkable. [facility] Don Melara MD - 04/04/2024 Patient Name: WOODY NI : 1960 [facility]#: [id number] Exam Date/Time: 04/04/2024 16:40 Procedure: CT HEAD [...] Signed Date/Time: 04/04/2024 4:53 PM EDT [facility] Radiology Study observation (narrative) [facility] Comprehensive metabolic 1998 panelon 04-04-2024 Albumin [Mass/Vol] 4.2 g/dL 3.5 - 5.0 g/dL [facility] ALP [Catalytic activity/Vol] 67 U/L 38 - 126 U/L [facility] ALT [Catalytic activity/Vol] 17 U/L 0 - 49 U/L [facility] Anion gap [Moles/Vol] 14 mmol/L High 3 - 13 mmol/L [facility] AST [Catalytic activity/Vol] 39 U/L 15 - 46 U/L [facility] Bilirubin [Mass/Vol] 1.0 mg/dL 0.2 - 1 .3 mg/dL [facility] Calcium [Mass/Vol] 8.8 mg/dL 8.4 - 10. 4 mg/dL [facility] Chloride [Moles/Vol] 98 mmol/L 98 - 10 7 mmol/L [facility] CO2 [Moles/Vol] 16 mmol/L Low 22 - 30 mmol/L [facility] Creatinine [Mass/Vol] 0.92 mg/dL 0.66 - 1.25 mg/dL [facility] GFR/1.73 sq M.predicted MDRD (S/P/Bld) [Vol rate/Area] [facility] Comment on above: Calculation based on the Chronic Kidney Disease Epidemiology Collaboration (CKD-EPI) equation refit without adjustment for race Glucose [Mass/Vol] 97 mg/dL 70 - 100 mg/dL [facility] Potassium [Moles/Vol] 3.5 mmol/L 3.5 - 5.1 mmol/L [facility] Protein [Mass/Vol] 7.2 g/dL 6.3 - 8.2 g/dL [facility] Sodium [Moles/Vol] 128 mmol/L Low 135 - 145 mmol/L [facility] Urea nitrogen [Mass/Vol] 8 mg/dL Low 9 - 20 mg/dL [facility] ED Nursing Noteon 04-04-2024 ED Nursing Note Warm blanket provide d to patient per request. Martha Okeefe RN 04/04/24 1630 Normal [facility] ED Nursing Note Normal [facility] ED Provider Noteon ED Provider Note Normal [facility] ETHANOLon 04-04-2024 ETHANOL IN SER/PLAS 0.201 g/dL High 0.000-0.010 [facility] Comment on above: Result Comment: CLAIER Rivera COMMENTS:NOTE: This result is for medical treatment only. Analysis performed using non-forensic procedures. Performed By: #### L AB46, [id number], [id number], LAB17 ####Fur Comber: ARA WRIGHT ([id number])[facility] PA[facility] (SWRLAB)[address] Ethanol (Bld) [Mass/Vol]on 0 04-04-2024 Ethanol [Mass/Vol] 0.201 g/dL High 0.000 - 0.010 g/dL [facility] LACTIC ACID WITH REFLEXon Lactate [Moles/Vol] 3.8 mmol/L High 0.7-2.0 [facility] Comment on above: Performed By: #### L [id number] ####Fur Comber: ARA WRIGHT ([id number])[facility] CEDENO (SWRLAB)[address] [place] [address] Laboratory - Chemistry and C hemistry - challengeon 04-04-2024 Lactate [Moles/Vol] 3.8 mmol/L High 0.7 - 2. 0 mmol/L [facility] Beta hydroxybutyrate [Mass/Vol] 2.29 mg/dL 0.20 - 2.81 mg/dL [facility] Troponin I.cardiac [Mass/Vol] ng/mL NINF - 0.034 ng/mL [facility] Laboratory - Chemistry and C hemistry - challengeOrdered By: Perla Garcia on 04-04-2024 CO2 [Moles/Vol] 19.0 mmol/L Low 24.0 - 28.0 mmol/L [facility] HCO3 (Bld) [Moles/Vol] 17.9 mmol/L Low 23.0 - 27.0 mmol/L [facility] Oxygen (Bld) [Partial pressure] 31 mm[Hg] mm(Hg) [facility] pH (Bld) 7.323 [pH] 7.310 - 7.[address] [facility] No Panel Informationon 04-04 Interpretation and review of laboratory results Abnormal [facility] Interpretation and review of laboratory results Normal [facility] Diminished cerebral volume and evidence of chronic microvascular ischemic change without acute intracranial abnormality. Focal encephalomalacia of the anterior left temporal lobe suggesting old ischemic change or infarct. No acute abnormality identified throughout the cervical spine. Multilevel degenerative changes of the cervical spine as discussed. Report Dictated on Electronically Signed By: Don Melara MD Electronically Signed Date/Time: 04/04/2024 4:53 PM EDT [facility] Interpretation and review of laboratory results Abnormal [facility] No Panel InformationOrdered By: Perla Garcia on 04-04-2024 BASE EXCESS -8.0 mmol/L Low -3.0 - 3.0 mmol/L [facility] Interpretation and review of laboratory results Abnormal [facility] pCO2 [address] [facility] Source Of Oxygen Room Air [facility] No Panel InformationOrdered By: Don Melara on 04-04-[address] [facility] Work Phone: TROPONIN, WITH SERIAL REFLEX on 04-04-2024 Troponin I.cardiac [Mass/Vol] ng/mL Normal <0.034 [facility] Comment on above: Result Comment: CLAIRE Rivera COMMENTS:Patients with high levels of Biotin oral intake (ie >5 mg/day) may have falsely decreased Troponin levels. Performed By: #### L AB46, [id number], [id number], LAB17 ####Fur Comber: ARA WRIGHT ([id number])[facility] ([address] Troponin I.cardiac [Mass/Vol ]on 04-04-2024 Interpretation and review of laboratory results Normal [facility] Patients with high l evels of Biotin oral intake (ie >5 mg/day) may have falsely decreased Troponin levels. [facility] Vital signsOrdered By: Raz Garcia on 04-04-2024 Oxygen saturation in Blood 56.0 % Low 60.0 - 80.0 % [facility] XR Chest Single viewon 04-04 1. No evidence of an acute cardiopulmonary process. Report Dictated on Electronically Signed By: Tom Orourke MD Electronically Signed Date/Time: 04/04/2024 6:12 PM EDT [facility] Name: [facility] NI : 1960 [id number] Exam Date/Time: 04/04/2024 17:37 Procedure: XR CHEST [...] bones and soft tissues are grossly unremarkable. [facility] Tom Orourke MD - 04/04/2024 [...] Signed Date/Time: 04/04/2024 6:12 PM EDT [facility] Radiology Study observation (narrative) [facility] XR Chest Single viewOrdered By: Tom Orourke on 04-04-2024 [email or web address] Work Phone: Acetaminophen [Mass/Vol]on 0 03-09-2024 Interpretation and review of laboratory results Abnormal [facility] ED Nursing Noteon 03-09-2024 ED Nursing Note Called pt home numbe r and notified family that pt left his glasses and I will be leaving them with protective services Anna Ramey RN 03/09/24 1545 Normal [facility] ED Nursing Note Normal [facility] ED Nursing Note Received call back [place] that pt home is secured. Pt still wanting to leave. Per Dr. Stevens pt is OK to leave AMA. Pt ride called. Anna Ramey RN 03/09/24 1251 Normal [facility] ED Nursing Note Normal [facility] Laboratory - Chemistry and C hemistry - challengeon 03-09-2024 Glucose [Mass/Vol] 81 mg/dL 70 - 100 mg/dL [facility] Beta hydroxybutyrate [Mass/Vol] 0.81 mg/dL 0.20 - 2.81 mg/dL [facility] Base excess Calc (BldV) [Moles/Vol] -6.6000 mmol/L Low -3 - 3 mmol/L [facility] CO2 (BldV) [Partial pressure] 27.6 mm[Hg] Low [facility] HCO3 (Bld) [Moles/Vol] 16.8 mmol/L Low 23.0 - 27.0 mmol/L [facility] Oxygen (BldV) [Partial pressure] 60.7 mm[Hg] mm Hg [facility] pH (BldV) 7.392 [pH] 7.330 - 7.[address] [facility] Laboratory - Drug toxicology on 03-09-2024 Acetaminophen [Mass/Vol] ug/mL Low 10.0 - 30.0 ug/mL [facility] Salicylates [Mass/Vol] mg/dL NINF - 20.0 mg/dL [facility] No Panel Informationon 03-09 Interpretation and review of laboratory results Normal [facility] Performed by: [facility], [address] [place] [address] CLIA ID: [id number] [facility] Interpretation and review of laboratory results Normal [facility] FIO2 [facility] Interpretation and review of laboratory results Abnormal [facility] Performed by: [facility], [address] [facility] [address] CLIA ID: [id number] [facility] Radiology Study observation (narrative) [facility] No Panel InformationOrdered By: Steve Rose on 03-09-2024 ACETONE, SERUM Not detected Toxic > 20 Reporting Limit 5 mg/dL mg/dL [facility] ETHANOL, SERUM 0.203 Reporting Limit 0.01 g/dL g/dL (W/V) [facility] ISOPROPANOL, SERUM Not detected Toxic > 2 0 Reporting Limit 5 mg/dL mg/dL [facility] METHANOL, SERUM Not detected Toxic > 20 mg/dL, Reporting Limit 5 mg/dL mg/dL [facility] Progress Noteon 03-09-2024 Progress Note Normal [facility] Salicylates [Mass/Vol]on Interpretation and review of laboratory results Normal [facility] VOLATILE PANEL,SERUMon 03-09 ACETONE, SERUM-CAT LIST Not detected Normal Toxic > 20 Reporting Limit 5 mg/dL [facility] Comment on above: Performed By: #### L [id number] ####Fur Comber: ARA WRIGHT ([id number])[address] ETHANOL, SERUM-NUMERIC 0.203 g/dL (W/V) Normal R eporting Limit 0.01 g/dL [facility] Comment on above: Performed By: #### L [id number] ####Fur Comber: ARA WRIGHT ([id number])[address] ISOPROPANOL, SERUM-CAT LIST Not detected Normal Toxic > 20 Reporting Limit 5 mg/dL [facility] Comment on above: Result Comment: CLAIRE Rivera COMMENTS:NOTE:These results are for medical treatment only. Analysis performed using non-forensic procedures.This test has not been cleared by the [place] Food and Drug Administration (FDA). The FDA has determined that such clearance or approval is not necessary. The performance chararcteristics have been determined by the clinical laboratories of [facility]. Performed By: #### L [id number] ####Fur Comber: ARA WRIGHT ([id number])[address] METHANOL, SERUM-CAT LIST Not detected Normal Toxic > 20 mg/dL, Reporting Limit 5 mg/dL [facility] Comment on above: Performed By: #### L [id number] ####Fur Comber: ARA WRIGHT ([id number])[facility] ([facility])[address] [place] [address] Vital signson 03-09-2024 Oxygen saturation in Venous blood 91.2 % [facility] Comment on above: Performed by CLIA ID : [id number] [place], [place] ?Device: [id number] Accounting Machine Mechanic ID: [id number] ACETAMINOPHEN LEVELon 2023 Acetaminophen [Mass/Vol] ug/mL Low 10.0-30.0 [facility] Comment on above: Performed By: #### L AB34, LAB43, LAB17, [id number], LAB46 ####Fur Comber: TRESSA SANTIZO ([id number])[facility] [place] [address] BETA HYDROXYBUTYRATEon 03-08 BETA HYDROXYBUTYRATE 0.81 mg/dL Normal 0.20-2.81 [facility] Comment on above: Performed By: #### L AB34, LAB43, LAB17, [id number], LAB46 ####Fur Comber: TRESSA SANTIZO ([id number])[facility])[address] [place] [address] CBC W Auto Differential pane l (Bld)Ordered By: Alen Beavers on 03-08-2024 Basophils (Bld) [#/Vol] 0.0 10*3/uL 0.0 - 0.2 10*3/uL [facility] Basophils/100 WBC (Bld) 0.1 % 0.0 - 2.0 % [facility] Eosinophils (Bld) [#/Vol] 0.0 10*3/uL 0.0 - 0.5 10*3/uL [facility] Eosinophils/100 WBC (Bld) 0.0 % 0.0 - 6.0 % [facility] Erythrocyte distribution width (RBC) [Ratio] 11.9 % 11.5 - 15.0 % [facility] Hematocrit (Bld) [Volume fraction] 37.0 % Low 40.0 - 52.0 % [facility] Hemoglobin (Bld) [Mass/Vol] 13.2 g/dL 13.0 - 18.0 g/dL [facility] Immature granulocytes (Bld) [#/Vol] 0.2 10*3/uL High NINF - 0.1 10*3/uL [facility] Immature granulocytes/100 WBC (Bld) 2.2 % High 0.0 - 2.0 % [facility] Interpretation and review of laboratory results Abnormal [facility] Lymphocytes (Bld) [#/Vol] 1.0 10*3/uL 1.0 - 4.3 10*3/uL [facility] Lymphocytes/100 WBC (Bld) 11.6 % Low 15.0 - 45.0 % [facility] MCH (RBC) [Entitic mass] 30.6 pg 26.0 - 34.[address] [facility] MCHC (RBC) [Mass/Vol] 35.7 % 30.5 - 36.0 % [facility] MCV (RBC) [Entitic vol] 85.6 fL 77.0 - 99.0 fL [facility] Monocytes (Bld) [#/Vol] 0.1 10*3/uL 0.0 - 0.9 10*3/uL [facility] Monocytes/100 WBC (Bld) 1.2 % Low 5.0 - 13.0 % [facility] Neutrophils (Bld) [#/Vol] 7.6 10*3/uL High 1.8 - 7.5 10*3/uL [facility] Neutrophils/100 WBC (Bld) 84.9 % High 38.0 - 82.0 % [facility] Nucleated RBC/100 WBC (Bld) [Ratio] 0.0 % [facility] Platelet mean volume (Bld) [Entitic vol] 9.1 fL 9.0 - 12.7 fL [facility] Platelets (Bld) [#/Vol] 204 10*3/uL 140 - 440 10*3/uL [facility] RBC (Bld) [#/Vol] 4.32 10*6/uL Low 4.40 - 5.9 0 10*6/uL [facility] WBC (Bld) [#/Vol] 9.0 10*3/uL 3.6 - 10.7 10*3/uL [facility] CBC WITH AUTO DIFFERENTIALon 03-08-2024 Basophils (Bld) [#/Vol] 0.0 10*3/uL Normal 0.0-0.2 [facility] Comment on above: Performed By: #### L [id number] ####Fur Comber: TRESSA CHRISJAVY ([id number])[facility] ([facility])[address] Basophils/100 WBC (Bld) 0.1 % Normal 0.0-2.0 [facility] Comment on above: Performed By: #### L [id number] ####Fur Comber: TRESSA JONESKALAJAVY ([id number])[facility] ([facility])[address] Eosinophils (Bld) [#/Vol] 0.0 10*3/uL Normal 0.0-0.5 [facility] Comment on above: Performed By: #### L [id number] ####Fur Comber: TRESSA CHRISJAVY ([id number])[facility] [place] (SBHLAB)[address] Eosinophils/100 WBC (Bld) 0.0 % Normal 0.0-6.0 [facility] Comment on above: Performed By: #### L [id number] ####Fur Comber: TRESSA CHRISJAVY ([id number])[facility] (SBHLAB)[address] [place] [address] Erythrocyte distribution width (RBC) [Ratio] 11.9 % Normal 11.5-15.0 [facility] Comment on above: Performed By: #### L [id number] ####Fur Comber: TRESSA CHRISJAVY ([phone])[facility] [place] (SBHLAB)[address] Hematocrit (Bld) [Volume fraction] 37.0 % Low 40.0-52.0 [facility] Comment on above: Performed By: #### L [id number] ####Fur Comber: TRESSA SANTIZO ([id number])[facility] [place] (SBHLAB)[address] Hemoglobin (Bld) [Mass/Vol] 13.2 g/dL Normal 13.0-18.0 [facility] Comment on above: Performed By: #### L [id number] ####Fur Comber: TRESSA SANTIZO ([phone])[facility] (SB[facility]AB)[address] IMMATURE GRANS % 2.2 % High 0.0-2.0 [facility] Comment on above: Performed By: #### L [id number] ####Fur Comber: TRESSA SANTIZO ([id number])[facility] [place] (SBHLAB)[address] IMMATURE GRANS ABSOLUTE 0.2 10*3/uL High <0.1 [facility] Comment on above: Performed By: #### L [id number] ####Fur Comber: TRESSA SANTIZO ([id number])[facility] Lymphocytes (Bld) [#/Vol] 1.0 10*3/uL Normal 1.0-4.3 [facility] Comment on above: Performed By: #### L [id number] ####Fur Comber: TRESSA SANTIZO ([phone])[facility] [place] (SBAB)[address] Lymphocytes/100 WBC (Bld) 11.6 % Low 15.0-45.0 [facility] Comment on above: Performed By: #### L [id number] ####Fur Comber: TRESSA SANTIZO ([id number])[facility] ([facility])[address] MCH (RBC) [Entitic mass] 30.6 pg Normal 26.0-34.0 [facility] Comment on above: Performed By: #### L [id number] ####Fur Comber: TRESSA SANTIZO ([id number])[facility] (SBAB)[address] MCHC 35.7 % Normal 30.5-36.0 [facility] Comment on above: Performed By: #### L [id number] ####Fur Comber: TRESSA CHRISJAVY ([id number])[facility] (SBHLAB)[address] MCV (RBC) [Entitic vol] 85.6 fL Normal 77.0-99.0 [facility] Comment on above: Performed By: #### L [id number] ####Fur Comber: TRESSA CHRISJAVY ([id number])[facility] (SBHLAB)[address] Monocytes (Bld) [#/Vol] 0.1 10*3/uL Normal 0.0-0.9 [facility] Comment on above: Performed By: #### L [id number] ####Fur Comber: TRESSA CHRISJAVY ([id number])[facility] (SBHLAB)[address] [place] [address] [place] Monocytes/100 WBC (Bld) 1.2 % Low 5.0-13.0 [facility] Comment on above: Performed By: #### L [id number] ####Fur Comber: TRESSA SANTIZO ([id number])[facility] [place] (SBHLAB)[address] NEUTROPHILS ABSOLUTE 7.6 10*3/uL High 1.8-7.5 [facility] Comment on above: Performed By: #### L [id number] ####Fur Comber: TRESSA CHRISJAVY ([phone])[facility] [place] (SBHLAB)[address] [place] [address] [place] Neutrophils/100 WBC (Bld) 84.9 % High 38.0-82.0 [facility] Comment on above: Performed By: #### L [id number] ####Fur Comber: TRESSA SANTIZO ([id number])[facility] [place] (SBHLAB)[address] NRBC 0.0 /100 WBCs Normal 0.0-2.0 [facility] Comment on above: Performed By: #### L [id number] ####Fur Comber: TRESSA SANTIZO ([id number])[facility] [place] (SBHLAB)[address] Platelet mean volume (Bld) [Entitic vol] 9.1 fL Normal 9.0-12.7 [facility] Comment on above: Performed By: #### L [id number] ####Fur Comber: TRESSA SANTIZO ([phone])[facility] [place] (SBHLAB)[address] Platelets (Bld) [#/Vol] 204 10*3/uL Normal 140-440 [facility] Comment on above: Performed By: #### L [id number] ####Fur Comber: TRESSA SANTIZO ([phone])[facility] [place] (SBHLAB)[address] RBC (Bld) [#/Vol] 4.32 10*6/uL Low 4.40-5.90 [facility] Comment on above: Performed By: #### L [id number] ####Fur Comber: TRESSA SANTIZO ([id number])[facility] [place] (SBHLAB)[address] WBC (Bld) [#/Vol] 9.0 10*3/uL Normal 3.6-10.7 [facility] Comment on above: Performed By: #### L [id number] ####Fur Comber: TRESSA SANTIZO ([phone])[facility] [place] (SBHLAB)[address] COMPREHENSIVE METABOLIC PANE Peter 03-08-2024 Albumin [Mass/Vol] 4.2 g/dL Normal 3.5-5.0 [facility] Comment on above: Performed By: #### L AB34, LAB43, LAB17, [id number], LAB46 ####Fur Comber: TRESSA SANTIZO ([id number])[facility] [place] (SBHLAB)[address] ALP [Catalytic activity/Vol] 49 U/L Normal 38-126 [facility] Comment on above: Performed By: #### L AB34, LAB43, LAB17, [id number], LAB46 ####Fur Comber: TRESSA SANTIZO ([id number])[facility]ENTEROctavia HERNANDEZ (SBHLAB)[address] ALT [Catalytic activity/Vol] 33 U/L Normal 0-49 [facility] Comment on above: Performed By: #### L AB34, LAB43, LAB17, [id number], LAB46 ####Fur Comber: TRESSA SANTIZO ([id number])[facility]ENTEROctavia HERNANDEZ (SBHLAB)[address] Anion gap [Moles/Vol] 19 mmol/L High 3-13 [facility] Comment on above: Performed By: #### L AB34, LAB43, LAB17, [id number], LAB46 ####Fur Comber: TRESSA SANTIZO ([phone])[facility]ENTEROctavia [facility] (SBHLAB)[address] AST [Catalytic activity/Vol] 35 U/L Normal 15-46 [facility] Comment on above: Performed By: #### L AB34, LAB43, LAB17, [id number], LAB46 ####Fur Comber: TRESSA SANTIZO ([id number])[facility] CENTEROctavia [facility] (SBHLAB)[address] Bilirubin [Mass/Vol] 0.9 mg/dL Normal 0.2-1.3 [facility] Comment on above: Performed By: #### L AB34, LAB43, LAB17, COL5663, LAB46 ####Fur Comber: TRESSA SANTIZO ([id number])[facility]ENTEROctavia [facility] (SBHLAB)[address] Calcium [Mass/Vol] 8.7 mg/dL Normal 8.4-10.4 [facility] Comment on above: Performed By: #### L AB34, LAB43, LAB17, [id number], LAB46 ####Fur Comber: TRESSA SANTIZO ([id number])[facility] Chloride [Moles/Vol] 96 mmol/L Low 98-107 [facility] Comment on above: Performed By: #### L AB34, LAB43, LAB17, [id number], LAB46 ####Fur Comber: TRESSA SANTIZO ([id number])[facility] [place] [address] [place] CO2 [Moles/Vol] 14 mmol/L Low 22-30 [facility] Comment on above: Performed By: #### L AB34, LAB43, LAB17, [id number], LAB46 ####Fur Comber: TRESSA SANTIZO ([phone])[facility] Creatinine [Mass/Vol] 0.89 mg/dL Normal 0.66-1.25 [facility] Comment on above: Performed By: #### L AB34, LAB43, LAB17, [id number], LAB46 ####Fur Comber: TRESSA SANTIZO ([id number])[facility] ([facility])[address] GLOMERULAR FILTRATION RATE ML/MIN/1.73 SQ M.PREDICTED >90.0 Normal >60.0 [facility] Comment on above: Result Comment: Calc ulation based on the Chronic Kidney Disease Epidemiology Collaboration (CKD-EPI) equation refit without adjustment for race Performed By: #### L AB34, LAB43, LAB17, [id number], LAB46 ####Fur Comber: TRESSA SANTIZO ([id number])[facility] Glucose [Mass/Vol] 138 mg/dL High 70-100 [facility] Comment on above: Performed By: #### L AB34, LAB43, LAB17, [id number], LAB46 ####Fur Comber: TRESSA SANTIZO ([id number])[facility] (SBHLAB)[address] Potassium [Moles/Vol] 4.4 mmol/L Normal 3.5-5.1 [facility] Comment on above: Performed By: #### L AB34, LAB43, LAB17, [id number], LAB46 ####Fur Comber: TRESSA SANTIZO ([id number])[facility] (SB[facility]AB)[address] Protein [Mass/Vol] 7.1 g/dL Normal 6.3-8.2 [facility] Comment on above: Performed By: #### L AB34, LAB43, LAB17, ZTY3364, LAB46 ####Fur Comber: TRESSA SANTIZO ([id number])[facility] (SB[facility])[address] Sodium [Moles/Vol] 130 mmol/L Low 135-145 [facility] Comment on above: Performed By: #### L AB34, LAB43, LAB17, ZEL6375, LAB46 ####Fur Comber: TRESSA SANTIZO ([id number])[facility] (HLAB)[address] Urea nitrogen [Mass/Vol] 16 mg/dL Normal 9-20 [facility] Comment on above: Performed By: #### L AB34, LAB43, LAB17, [id number], LAB46 ####Fur Comber: TRESSA SANTIZO ([id number])[facility] (SBHLAB)[address] Comprehensive metabolic 1998 panelon 03-08-2024 Albumin [Mass/Vol] 4.2 g/dL 3.5 - 5.0 g/dL [facility] ALP [Catalytic activity/Vol] 49 U/L 38 - 126 U/L [facility] ALT [Catalytic activity/Vol] 33 U/L 0 - 49 U/L [facility] Anion gap [Moles/Vol] 19 mmol/L High 3 - 13 mmol/L [facility] AST [Catalytic activity/Vol] 35 U/L 15 - 46 U/L [facility] Bilirubin [Mass/Vol] 0.9 mg/dL 0.2 - 1 .3 mg/dL [facility] Calcium [Mass/Vol] 8.7 mg/dL 8.4 - 10. 4 mg/dL [facility] Chloride [Moles/Vol] 96 mmol/L Low 98 - 10 7 mmol/L [facility] CO2 [Moles/Vol] 14 mmol/L Low 22 - 30 mmol/L [facility] Creatinine [Mass/Vol] 0.89 mg/dL 0.66 - 1.25 mg/dL [facility] GFR/1.73 sq M.predicted MDRD (S/P/Bld) [Vol rate/Area] - PINF [facility] Comment on above: Calculation based on the Chronic Kidney Disease Epidemiology Collaboration (CKD-EPI) equation refit without adjustment for race Glucose [Mass/Vol] 138 mg/dL High 70 - 100 mg/dL [facility] Potassium [Moles/Vol] 4.4 mmol/L 3.5 - 5.1 mmol/L [facility] Protein [Mass/Vol] 7.1 g/dL 6.3 - 8.2 g/dL [facility] Sodium [Moles/Vol] 130 mmol/L Low 135 - 145 mmol/L [facility] Urea nitrogen [Mass/Vol] 16 mg/dL 9 - 20 mg/dL [facility] DRUGS OF ABUSEon 03-08-2024 AMPHETAMINE SCREEN Negative Normal [facility] Comment on above: Performed By: #### L [id number] ####Fur Comber: TRESSA SANTIZO ([id number])[facility] ([facility])[address] [place] [address] BARBITURATES SCREEN Negative Normal [facility] Comment on above: Performed By: #### L [id number] ####Fur Comber: TRESSA SANTIZO ([id number])[facility] [place] [address] BENZODIAZEPINE SCREEN Negative Normal [facility] Comment on above: Performed By: #### L [id number] ####Fur Comber: TRESSA SANTIZO ([id number])[facility] (SBHLAB)[address] COCAINE METAB. SCREEN Negative Normal [facility] Comment on above: Performed By: #### L [id number] ####Fur Comber: TRESSA JONESALEKSANDR ([id number])[facility] (SBHLAB)[address] METHADONE SCREEN Negative Normal [facility] Comment on above: Performed By: #### L [id number] ####Fur Comber: TRESSA JONESALEKSANDR ([id number])[facility] (SBHLAB)[address] OPIATES SCREEN Negative Normal [facility] Comment on above: Performed By: #### L [id number] ####Fur Comber: TRESSA CHRISJAVY ([id number])[facility] (SBHLAB)[address] OXYCODONE SCREEN Negative Normal [facility] Comment on above: Performed By: #### L [id number] ####Fur Comber: TRESSA JONESALEKSANDR ([id number])[facility] (SBHLAB)[address] PHENCYCLIDINE SCREEN Negative Normal [facility] Comment on above: Result Comment: [...] under separate order. Performed By: #### L [id number] ####Fur Comber: TRESSA CHRISJAVY ([id number])[facility] (SBHLAB)[address] ED Nursing Noteon 03-08-2024 ED Nursing Note Pt. 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 Seizure pads applied to hospital bed. Marjan An RN 03/08/24 5839 Normal [facility] ED Nursing Note Normal [facility] ED Nursing Note Normal [facility] ED Provider Noteon ED Provider Note Normal [facility] ETHANOLon 03-08-2024 ETHANOL IN SER/PLAS 0.284 g/dL High 0.000-0.010 [facility] Comment on above: Result Comment: ALDAE R COMMENTS:NOTE: This result is for medical treatment only. Analysis performed using non-forensic procedures. Performed By: #### L AB34, LAB43, LAB17, [id number], LAB46 ####Fur Comber: TRESSA SANTIZO ([phone])[facility] Ethanol (Bld) [Mass/Vol]on 0 03-08-2024 Ethanol [Mass/Vol] 0.284 g/dL High 0.000 - 0.010 g/dL [facility] Laboratory - Drug toxicology Ordered By: Maricruz Mesa on 03-08-2024 Amphetamines Screen method >1000 ng/mL Ql (U) Negative [facility] Barbiturates Screen method >200 ng/mL Ql (U) Negative [facility] Benzodiazepines Ql (U) Negative [facility] Methadone Screen Ql (U) Negative [facility] Opiates Screen Ql (U) Negative [facility] oxyCODONE Ql (U) Negative [facility] Phencyclidine Ql (U) Negative [facility] Laboratory - Microbiology an d Antimicrobial susceptibilityon 03-08-2024 SARS-CoV-2 (COVID-19) Ag IA.rapid Ql (Resp) Negative Negative [facility] Comment on above: A negative result do es not rule out the possibility of SARS-CoV-2 infection. NAAT-based methods should be considered for symptomatic patients presenting greater than seven days after onset of symptoms. Method: Lateral flow immunoassay. Fact sheets for healthcare providers and patients can be found at the following sites: https://www.fda.gov/media/742869/download https://www.fda.gov/media/682000/download No Panel InformationOrdered By: Maricruz Mesa on 03-08-2024 COCAINE METAB. SCREEN Negative [facility] The expected value f or [...] is needed, request confirmation under separate order. [facility] No Panel Informationon 03-08 Interpretation and review of laboratory results Abnormal [facility] Radiology Study observation (narrative) [facility] SALICYLATEon 03-08-2024 SALICYLATES <1.0 Normal <20.0 [facility] Comment on above: Performed By: #### L AB34, LAB43, LAB17, [id number], LAB46 ####Fur Comber: TRESSA SANTIZO ([id number])[facility] ([facility])[address] [place] [address] SARS-COV-2 ANTIGENon 024 SARS-COV-2 ANTIGEN Normal [facility] Comment on above: Performed By: #### L [id number] ####Fur Comber: TRESSA SANTIZO ([id number])[facility] ([facility])[address] [place] [address] SARS-CoV-2 (COVID-19) Ag IA. rapid Ql (Resp)on 03-08-2024 Interpretation and review of laboratory results Normal [facility] 36on 02-26-2024 36 Normal [facility] CARECOORDon 01-27-2024 CARECOORD Patient Choice Patient Name: WOODY NI Date of : 1960 Normal [facility] CARECOORDon 01-26-2024 CARECOORD Normal [facility] CARECOORD Normal [facility] CARECOBARAGA Asked by [facility] to set transport to [facility]. Wheel chair transportation arranged through [employer] for 1300 apple picker. 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 Normal [facility] Discharge med list transmitted to [facility] via [facility] per [facility] request. 7000 was entered into Rev for the [facility]. Normal [facility] CBC (HEMOGRAM)on 01-26-2024 Erythrocyte distribution width (RBC) [Ratio] 13.5 % Normal 11.5-15.0 [facility] Comment on above: Performed By: #### L [id number] ####Fur Comber: ARA WRIGHT ([id number])[address] Hematocrit (Bld) [Volume fraction] 32.2 % Low 40.0-52.0 [facility] Comment on above: Performed By: #### L [id number] ####Fur Comber: ARA WRIGHT ([id number])[address] Hemoglobin (Bld) [Mass/Vol] 11.2 g/dL Low 13.0-18.0 [facility] Comment on above: Performed By: #### L [id number] ####Fur Comber: ARA WRIGHT ([id number])[address] MCH (RBC) [Entitic mass] 31.7 pg Normal 26.0-34.0 [facility] Comment on above: Performed By: #### L AB294 ####Fur Comber: ARA WRIGHT ([id number])[address] MCHC 34.8 % Normal 30.5-36.0 [facility] Comment on above: Performed By: #### L AB294 ####Fur Comber: ARA WRIGHT ([id number])[facility])[address] [place] [address] MCV (RBC) [Entitic vol] 91.2 fL Normal 77.0-99.0 [facility] Comment on above: Performed By: #### L AB294 ####Fur Comber: ARA WRIGHT ([id number])[facility])[address] [place] [address] Platelet mean volume (Bld) [Entitic vol] 9.1 fL Normal 9.0-12.7 [facility] Comment on above: Performed By: #### L AB294 ####Fur Comber: ARA WRIGHT ([id number])[facility])[address] [place] [address] Platelets (Bld) [#/Vol] 151 10*3/uL Normal 140-440 [facility] Comment on above: Performed By: #### L AB294 ####Fur Comber: ARA WRIGHT ([id number])[facility])[address] [place] [address] RBC (Bld) [#/Vol] 3.53 10*6/uL Low 4.40-5.90 [facility] Comment on above: Performed By: #### L [id number] ####Fur Comber: ARA WRIGHT ([phone])[facility])[address] [place] [address] WBC (Bld) [#/Vol] 6.1 10*3/uL Normal 3.6-10.7 [facility] Comment on above: Performed By: #### L AB294 ####Fur Comber: ARA WRIGHT ([id number])[facility])[address] [place] [address] CBC panel Auto (Bld)on 04-09 -2024 Erythrocyte distribution width (RBC) [Ratio] 13.5 % 11.5 - 15.0 % [facility] Hematocrit (Bld) [Volume fraction] 32.2 % Low 40.0 - 52.0 % [facility] Hemoglobin (Bld) [Mass/Vol] 11.2 g/dL Low 13.0 - 18.0 g/dL [facility] Interpretation and review of laboratory results Abnormal [facility] MCH (RBC) [Entitic mass] 31.7 pg 26.0 - 34.[address] [facility] MCHC (RBC) [Mass/Vol] 34.8 % 30.5 - 36.0 % [facility] MCV (RBC) [Entitic vol] 91.2 fL 77.0 - 99.[address] [facility] Platelet mean volume (Bld) [Entitic vol] 9.1 fL 9.0 - 12.[address] [facility] Platelets (Bld) [#/Vol] 151 10*3/uL 140 - 440 10*3/uL [facility] RBC (Bld) [#/Vol] 3.53 10*6/uL Low 4.40 - 5.9 0 10*6/uL [facility] WBC (Bld) [#/Vol] 6.1 10*3/uL 3.6 - 10.7 10*3/uL [facility] COMPREHENSIVE METABOLIC PANE Peter 01-26-2024 Albumin [Mass/Vol] 3.8 g/dL Normal 3.5-5.0 [facility] Comment on above: Performed By: #### L AB17 ####Fur Comber: ARA WRIGHT ([id number])[address] ALP [Catalytic activity/Vol] 50 U/L Normal 38-126 [facility] Comment on above: Performed By: #### L AB17 ####Fur Comber: ARA WRIGHT ([id number])[address] ALT [Catalytic activity/Vol] 18 U/L Normal 0-49 [facility] Comment on above: Performed By: #### L AB17 ####Fur Comber: ARA WRIGHT ([id number])[facility] ([facility])[address] [place] [address] Anion gap [Moles/Vol] 10 mmol/L Normal 3-13 [facility] Comment on above: Performed By: #### L AB17 ####Fur Comber: ARA WRIGHT ([id number])[facility] ([facility])[address] [place] [address] AST [Catalytic activity/Vol] 22 U/L Normal 15-46 [facility] Comment on above: Performed By: #### L AB17 ####Fur Comber: ARA WRIGHT ([id number])[facility] ([facility])[address] [place] [address] Bilirubin [Mass/Vol] 0.6 mg/dL Normal 0.2-1.3 [facility] Comment on above: Performed By: #### L AB17 ####Fur Comber: ARA WRIGHT ([phone])[facility] ([facility])[address] [place] [address] Calcium [Mass/Vol] 8.9 mg/dL Normal 8.4-10.4 [facility] Comment on above: Performed By: #### L AB17 ####Fur Comber: ARA WRIGHT ([id number])[facility] ([facility])[address] [place] [address] Chloride [Moles/Vol] 101 mmol/L Normal 98-107 [facility] Comment on above: Performed By: #### L AB17 ####Fur Comber: ARA WRIGHT ([id number])[facility] ([facility])[address] [place] [address] [place] CO2 [Moles/Vol] 17 mmol/L Low 22-30 [facility] Comment on above: Performed By: #### L AB17 ####Fur Comber: ARA WRIGHT ([id number])[facility] ([facility])[address] [place] [address] Creatinine [Mass/Vol] 0.92 mg/dL Normal 0.66-1.25 [facility] Comment on above: Performed By: #### L [id number] ####Fur Comber: ARA WRIGHT ([phone])[facility] ([facility])[address] [place] [address] GLOMERULAR FILTRATION RATE ML/MIN/1.73 SQ M.PREDICTED >90.0 Normal >60.0 [facility] Comment on above: Result Comment: Calc ulation based on the Chronic Kidney Disease Epidemiology Collaboration (CKD-EPI) equation refit without adjustment for race Performed By: #### L [id number] ####Fur Comber: ARA WRIGHT ([phone])[facility] ([facility])[address] [place] [address] Glucose [Mass/Vol] 95 mg/dL Normal 70-100 [facility] Comment on above: Performed By: #### L [id number] ####Fur Comber: ARA WRIGHT ([phone])[facility] ([facility])[address] [place] [address] Potassium [Moles/Vol] 3.7 mmol/L Normal 3.5-5.1 [facility] Comment on above: Performed By: #### L [id number] ####Fur Comber: ARA WRIGHT ([phone])[facility] ([facility])[address] [place] [address] Protein [Mass/Vol] 6.7 g/dL Normal 6.3-8.2 [facility] Comment on above: Performed By: #### L [id number] ####Fur Comber: ARA WRIGHT ([phone])[facility] ([facility])[address] [place] [address] [place] Sodium [Moles/Vol] 128 mmol/L Low 135-145 [facility] Comment on above: Performed By: #### L AB17 ####Fur Comber: ARA WRIGHT ([id number])[facility] ([facility])[address] [place] [address] [place] Urea nitrogen [Mass/Vol] 5 mg/dL Low 9-20 [facility] Comment on above: Performed By: #### L AB17 ####Fur Comber: ARA WRIGHT ([id number])[facility] ([facility])[address] [place], [place] [id number] [facility] Comprehensive metabolic 1998 panelon 01-26-2024 Albumin [Mass/Vol] 3.8 g/dL 3.5 - 5.0 g/dL [facility] ALP [Catalytic activity/Vol] 50 U/L 38 - 126 U/L [facility] ALT [Catalytic activity/Vol] 18 U/L 0 - 49 U/L [facility] Anion gap [Moles/Vol] 10 mmol/L 3 - 13 mmol/L [facility] AST [Catalytic activity/Vol] 22 U/L 15 - 46 U/L [facility] Bilirubin [Mass/Vol] 0.6 mg/dL 0.2 - 1 .3 mg/dL [facility] Calcium [Mass/Vol] 8.9 mg/dL 8.4 - 10. 4 mg/dL [facility] Chloride [Moles/Vol] 101 mmol/L 98 - 10 7 mmol/L [facility] CO2 [Moles/Vol] 17 mmol/L Low 22 - 30 mmol/L [facility] Creatinine [Mass/Vol] 0.92 mg/dL 0.66 - 1.25 mg/dL [facility] GFR/1.73 sq M.predicted MDRD (S/P/Bld) [Vol rate/Area] - PINF [facility] Comment on above: Calculation based on the Chronic Kidney Disease Epidemiology Collaboration (CKD-EPI) equation refit without adjustment for race Glucose [Mass/Vol] 95 mg/dL 70 - 100 mg/dL [facility] Interpretation and review of laboratory results Abnormal [facility] Potassium [Moles/Vol] 3.7 mmol/L 3.5 - 5.1 mmol/L [facility] Protein [Mass/Vol] 6.7 g/dL 6.3 - 8.2 g/dL [facility] Sodium [Moles/Vol] 128 mmol/L Low 135 - 145 mmol/L [facility] Urea nitrogen [Mass/Vol] 5 mg/dL Low 9 - 20 mg/dL [facility] Progress Noteon 01-26-2024 Progress Note Normal [facility] [id number] 01-25-2024 [id number] [employer] following case for Discharge Needs. Asked to follow per tcc and check cost/benefits for home infusion. Will send to [facility] to inquire. Normal [facility] BASIC METABOLIC PANELon 04-0 Anion gap [Moles/Vol] 11 mmol/L Normal 3-13 [facility] Comment on above: Performed By: #### L AB15, [id number] ####Fur Comber: ARA WRIGHT ([phone])[facility] [place] [address] Calcium [Mass/Vol] 9.3 mg/dL Normal 8.4-10.4 [facility] Comment on above: Performed By: #### L AB15, [id number] ####Fur Comber: ARA WRIGHT ([id number])[facility] [place] [address] Chloride [Moles/Vol] 102 mmol/L Normal 98-107 [facility] Comment on above: Performed By: #### L AB15, [id number] ####Fur Comber: ARA WRIGHT ([id number])[facility] [place] [address] CO2 [Moles/Vol] 16 mmol/L Low 22-30 [facility] Comment on above: Performed By: #### L AB15, [id number] ####Fur Comber: ARA WRIGHT ([id number])[facility] ([facility])[address] [place] [address] Creatinine [Mass/Vol] 0.94 mg/dL Normal 0.66-1.25 [facility] Comment on above: Performed By: #### L AB15, [id number] ####Fur Comber: ARA WRIGHT ([phone])[facility] ([facility])[address] [place] [address] GLOMERULAR FILTRATION RATE ML/MIN/1.73 SQ M.PREDICTED >90.0 Normal >60.0 [facility] Comment on above: Result Comment: Calc ulation based on the Chronic Kidney Disease Epidemiology Collaboration (CKD-EPI) equation refit without adjustment for race Performed By: #### L AB15, [id number] ####Fur Comber: ARA WRIGHT ([id number])[facility] ([facility])[address] [place] [address] Glucose [Mass/Vol] 100 mg/dL Normal 70-100 [facility] Comment on above: Performed By: #### L AB15, [id number] ####Fur Comber: ARA WRIGHT ([id number])[facility] ([facility])[address] [place] [address] Potassium [Moles/Vol] 3.6 mmol/L Normal 3.5-5.1 [facility] Comment on above: Performed By: #### L AB15, [id number] ####Fur Comber: ARA WRIGHT ([id number])[facility] ([facility])[address] [place] [address] Sodium [Moles/Vol] 129 mmol/L Low 135-145 [facility] Comment on above: Performed By: #### L AB15, [id number] ####Fur Comber: ARA WRIGHT ([id number])[facility] ([facility])[address] [place] [address] Urea nitrogen [Mass/Vol] 9 mg/dL Normal 9-20 [facility] Comment on above: Performed By: #### L AB15, [id number] ####Fur Comber: ARA WRIGHT ([id number])[facility] ([facility])[address] [place] [address] Basic metabolic 1998 panelon 01-25-2024 Anion gap [Moles/Vol] 11 mmol/L 3 - 13 mmol/L [facility] Calcium [Mass/Vol] 9.3 mg/dL 8.4 - 10. 4 mg/dL [facility] Chloride [Moles/Vol] 102 mmol/L 98 - 10 7 mmol/L [facility] CO2 [Moles/Vol] 16 mmol/L Low 22 - 30 mmol/L [facility] Creatinine [Mass/Vol] 0.94 mg/dL 0.66 - 1.25 mg/dL [facility] GFR/1.73 sq M.predicted MDRD (S/P/Bld) [Vol rate/Area] - PINF [facility] Comment on above: Calculation based on the Chronic Kidney Disease Epidemiology Collaboration (CKD-EPI) equation refit without adjustment for race Glucose [Mass/Vol] 100 mg/dL 70 - 100 mg/dL [facility] Potassium [Moles/Vol] 3.6 mmol/L 3.5 - 5.1 mmol/L [facility] Sodium [Moles/Vol] 129 mmol/L Low 135 - 145 mmol/L [facility] Urea nitrogen [Mass/Vol] 9 mg/dL 9 - 20 mg/dL [facility] CARECOORDon 01-25-2024 CARECOORD Updated notes placed to [facility] via [facility] per TCC request. Await review and response regarding ability to accept. TCC notified. Normal [facility] CARECOORD Normal [facility] CBC W Auto Differential pane l (Bld)on 01-25-2024 Basophils (Bld) [#/Vol] 0.0 10*3/uL 0.0 - 0.2 10*3/uL [facility] Basophils/100 WBC (Bld) 0.7 % 0.0 - 2.0 % [facility] Eosinophils (Bld) [#/Vol] 0.1 10*3/uL 0.0 - 0.5 10*3/uL [facility] Eosinophils/100 WBC (Bld) 2.0 % 0.0 - 6.0 % [facility] Erythrocyte distribution width (RBC) [Ratio] 13.7 % 11.5 - 15.0 % [facility] Hematocrit (Bld) [Volume fraction] 34.0 % Low 40.0 - 52.0 % [facility] Hemoglobin (Bld) [Mass/Vol] 11.7 g/dL Low 13.0 - 18.0 g/dL [facility] Immature granulocytes (Bld) [#/Vol] 0.0 10*3/uL NINF - 0.1 10*3/uL [facility] Immature granulocytes/100 WBC (Bld) 0.3 % 0.0 - 2.0 % [facility] Interpretation and review of laboratory results Abnormal [facility] Lymphocytes (Bld) [#/Vol] 2.3 10*3/uL 1.0 - 4.3 10*3/uL [facility] Lymphocytes/100 WBC (Bld) 39.1 % 15.0 - 45.0 % [facility] MCH (RBC) [Entitic mass] 31.5 pg 26.0 - 34.[address] [facility] MCHC (RBC) [Mass/Vol] 34.4 % 30.5 - 36.0 % [facility] MCV (RBC) [Entitic vol] 91.6 fL 77.0 - 99.[address] [facility] Monocytes (Bld) [#/Vol] 0.7 10*3/uL 0.0 - 0.9 10*3/uL [facility] Monocytes/100 WBC (Bld) 11.0 % 5.0 - 13.0 % [facility] Neutrophils (Bld) [#/Vol] 2.8 10*3/uL 1.8 - 7.5 10*3/uL [facility] Neutrophils/100 WBC (Bld) 46.9 % 38.0 - 82.0 % [facility] Nucleated RBC/100 WBC (Bld) [Ratio] 0.0 % [facility] Platelet mean volume (Bld) [Entitic vol] 9.4 fL 9.0 - 12.[address] [facility] Platelets (Bld) [#/Vol] 141 10*3/uL 140 - 440 10*3/uL [facility] RBC (Bld) [#/Vol] 3.71 10*6/uL Low 4.40 - 5.9 0 10*6/uL [facility] WBC (Bld) [#/Vol] 6.0 10*3/uL 3.6 - 10.7 10*3/uL [facility] CBC WITH AUTO DIFFERENTIALon 01-25-2024 Basophils (Bld) [#/Vol] 0.0 10*3/uL Normal 0.0-0.2 [facility] Comment on above: Performed By: #### L [id number] ####Fur Comber: ARA WRIGHT ([id number])[address] Basophils/100 WBC (Bld) 0.7 % Normal 0.0-2.0 [facility] Comment on above: Performed By: #### L [id number] ####Fur Comber: ARA WRIGHT ([id number])[facility])[address] [place] [address] Eosinophils (Bld) [#/Vol] 0.1 10*3/uL Normal 0.0-0.[address] [facility] Comment on above: Performed By: #### L [id number] ####Fur Comber: RAA WRIGHT ([id number])[facility])[address] [place] [address] Eosinophils/100 WBC (Bld) 2.0 % Normal 0.0-6.0 [facility] Comment on above: Performed By: #### L [id number] ####Fur Comber: ARA WRIGHT ([id number])[facility])[address] [place] [address] Erythrocyte distribution width (RBC) [Ratio] 13.7 % Normal 11.5-15.0 [facility] Comment on above: Performed By: #### L [id number] ####Fur Comber: ARA WRIGHT ([id number])[address] Hematocrit (Bld) [Volume fraction] 34.0 % Low 40.0-52.0 [facility] Comment on above: Performed By: #### L [id number] ####Fur Comber: ARA WRIGHT ([id number])[address] Hemoglobin (Bld) [Mass/Vol] 11.7 g/dL Low 13.0-18.0 [facility] Comment on above: Performed By: #### L [id number] ####Fur Comber: ARA WRIGHT ([id number])[address] IMMATURE GRANS % 0.3 % Normal 0.0-2.0 [facility] Comment on above: Performed By: #### L [id number] ####Fur Comber: ARA WRIGHT ([id number])[address] IMMATURE GRANS ABSOLUTE 0.0 10*3/uL Normal <0.1 [facility] Comment on above: Performed By: #### L [id number] ####Fur Comber: ARA WRIGHT ([id number])[facility])[address] [place] [address] Lymphocytes (Bld) [#/Vol] 2.3 10*3/uL Normal 1.0-4.3 [facility] Comment on above: Performed By: #### L [id number] ####Fur Comber: ARA WRIGHT ([id number])[facility])[address] [place] [address] Lymphocytes/100 WBC (Bld) 39.1 % Normal 15.0-45.0 [facility] Comment on above: Performed By: #### L [id number] ####Fur Comber: ARA WRIGHT ([id number])[address] MCH (RBC) [Entitic mass] 31.5 pg Normal 26.0-34.0 [facility] Comment on above: Performed By: #### L [id number] ####Fur Comber: ARA WRIGHT ([id number])[facility])[address] [place] [address] MCHC 34.4 % Normal 30.5-36.0 [facility] Comment on above: Performed By: #### L [id number] ####Fur Comber: ARA WRIGHT ([id number])[facility])[address] [place] [address] MCV (RBC) [Entitic vol] 91.6 fL Normal 77.0-99.0 [facility] Comment on above: Performed By: #### L [id number] ####Fur Comber: ARA WRIGHT ([id number])[facility])[address] [place] [address] Monocytes (Bld) [#/Vol] 0.7 10*3/uL Normal 0.0-0.9 [facility] Comment on above: Performed By: #### L [id number] ####Fur Comber: ARA WRIGHT ([id number])[facility] [place] [address] Monocytes/100 WBC (Bld) 11.0 % Normal 5.0-13.0 [facility] Comment on above: Performed By: #### L [id number] ####Fur Comber: ARA WRIGHT ([id number])[facility] ([facility])[address] [place] [address] NEUTROPHILS ABSOLUTE 2.8 10*3/uL Normal 1.8-7.5 [facility] Comment on above: Performed By: #### L [id number] ####Fur Comber: ARA WRIGHT ([id number])[facility])[address] [place] [address] Neutrophils/100 WBC (Bld) 46.9 % Normal 38.0-82.0 [facility] Comment on above: Performed By: #### L [id number] ####Fur Comber: ARA WRIGHT ([id number])[facility] ([facility])[address] [place] [address] NRBC 0.0 /100 WBCs Normal 0.0-2.0 [facility] Comment on above: Performed By: #### L [id number] ####Fur Comber: ARA WRIGHT ([id number])[facility])[address] [place] [address] Platelet mean volume (Bld) [Entitic vol] 9.4 fL Normal 9.0-12.7 [facility] Comment on above: Performed By: #### L [id number] ####Fur Comber: ARA WRIGHT ([id number])[facility] ([facility])[address] [place] [address] Platelets (Bld) [#/Vol] 141 10*3/uL Normal 140-440 [facility] Comment on above: Performed By: #### L [id number] ####Fur Comber: ARA WRIGHT ([id number])[facility])[address] [place] [address] RBC (Bld) [#/Vol] 3.71 10*6/uL Low 4.40-5.90 [facility] Comment on above: Performed By: #### L [id number] ####Fur Comber: ARA WRIGHT ([id number])[facility])[address] [place] [address] WBC (Bld) [#/Vol] 6.0 10*3/uL Normal 3.6-10.7 [facility] Comment on above: Performed By: #### L [id number] ####Fur Comber: ARA WRIGHT ([id number])[facility] ([facility])[address] [place] [address] Laboratory - Chemistry and C hemistry - challengeon 01-25-2024 Magnesium [Mass/Vol] 1.5 mg/dL Low 1.6 - 2 .3 mg/dL [facility] MAGNESIUMon 01-25-2024 Magnesium [Mass/Vol] 1.5 mg/dL Low 1.6-2.3 [facility] Comment on above: Performed By: #### L AB15, [id number] ####Fur Comber: ARA WRIGHT ([id number])[address] No Panel Informationon 01-24 Interpretation and review of laboratory results Abnormal [facility] Progress Noteon 01-25-2024 Progress Note Normal [facility] Progress Note Normal [facility] Progress Note Normal [facility] Progress Note PHYSICAL THERAPY [facility] Name/MRN: Woody Ni ([id number]) Date: 01/25/2024 Attempted PT. Pt states he can't do any therapy right now because he needs his meds first. Will re-attempt as schedule allows. Amarilys Leary, REPLENISHER Normal [facility] Progress Note Normal [facility] BASIC METABOLIC PANELon Anion gap [Moles/Vol] 11 mmol/L Normal 3-13 [facility] Comment on above: Performed By: #### L AB103, LAB15 ####Fur Comber: ARA WRIGHT ([id number])[facility])[address] [place] [address] Calcium [Mass/Vol] 9.6 mg/dL Normal 8.4-10.4 [facility] Comment on above: Performed By: #### L AB103, LAB15 ####Fur Comber: ARA WRIGHT ([id number])[facility] ([facility])[address] [place] [address] Chloride [Moles/Vol] 103 mmol/L Normal 98-107 [facility] Comment on above: Performed By: #### L AB103, LAB15 ####Fur Comber: ARA WRIGHT ([id number])[facility] ([facility])[address] [place] [address] [place] CO2 [Moles/Vol] 18 mmol/L Low 22-30 [facility] Comment on above: Performed By: #### L AB103, LAB15 ####Fur Comber: ARA WRIGHT ([id number])[facility] ([facility])[address] [place] [address] Creatinine [Mass/Vol] 0.86 mg/dL Normal 0.66-1.25 [facility] Comment on above: Performed By: #### L AB103, LAB15 ####Fur Comber: ARA WRIGHT ([id number])[facility])[address] [place] [address] GLOMERULAR FILTRATION RATE ML/MIN/1.73 SQ M.PREDICTED >90.0 Normal >60.0 [facility] Comment on above: Result Comment: Calc ulation based on the Chronic Kidney Disease Epidemiology Collaboration (CKD-EPI) equation refit without adjustment for race Performed By: #### L AB103, LAB15 ####Fur Comber: ARA WRIGHT ([id number])[facility] ([facility])[address] [place] [address] [place] Glucose [Mass/Vol] 97 mg/dL Normal 70-100 [facility] Comment on above: Performed By: #### L AB103, LAB15 ####Fur Comber: ARA WRIGHT ([phone])[facility])[address] [place] [address] [place] Potassium [Moles/Vol] 4.0 mmol/L Normal 3.5-5.1 [facility] Comment on above: Performed By: #### L AB103, LAB15 ####Fur Comber: ARA WRIGHT ([id number])[facility] ([facility])[address] [place] [address] Sodium [Moles/Vol] 132 mmol/L Low 135-145 [facility] Comment on above: Performed By: #### L AB103, LAB15 ####Fur Comber: ARA WRIGHT ([id number])[facility] ([facility])[address] [place] [address] Urea nitrogen [Mass/Vol] 12 mg/dL Normal 9-20 [facility] Comment on above: Performed By: #### L AB103, LAB15 ####Fur Comber: ARA WRIGHT ([id number])[facility] ([facility])[address] [place] [address] Basic metabolic 1998 panelon 01-24-2024 Anion gap [Moles/Vol] 11 mmol/L 3 - 13 mmol/L [facility] Calcium [Mass/Vol] 9.6 mg/dL 8.4 - 10. 4 mg/dL [facility] Chloride [Moles/Vol] 103 mmol/L 98 - 10 7 mmol/L [facility] CO2 [Moles/Vol] 18 mmol/L Low 22 - 30 mmol/L [facility] Creatinine [Mass/Vol] 0.86 mg/dL 0.66 - 1.25 mg/dL [facility] GFR/1.73 sq M.predicted MDRD (S/P/Bld) [Vol rate/Area] - PINF [facility] Comment on above: Calculation based on the Chronic Kidney Disease Epidemiology Collaboration (CKD-EPI) equation refit without adjustment for race Glucose [Mass/Vol] 97 mg/dL 70 - 100 mg/dL [facility] Interpretation and review of laboratory results Abnormal [facility] Potassium [Moles/Vol] 4.0 mmol/L 3.5 - 5.1 mmol/L [facility] Sodium [Moles/Vol] 132 mmol/L Low 135 - 145 mmol/L [facility] Urea nitrogen [Mass/Vol] 12 mg/dL 9 - 20 mg/dL [facility] CBC W Auto Differential pane l (Bld)on 01-24-2024 Basophils (Bld) [#/Vol] 0.0 10*3/uL 0.0 - 0.2 10*3/uL [facility] Basophils/100 WBC (Bld) 0.5 % 0.0 - 2.0 % [facility] Eosinophils (Bld) [#/Vol] 0.1 10*3/uL 0.0 - 0.5 10*3/uL [facility] Eosinophils/100 WBC (Bld) 2.3 % 0.0 - 6.0 % [facility] Erythrocyte distribution width (RBC) [Ratio] 13.9 % 11.5 - 15.0 % [facility] Hematocrit (Bld) [Volume fraction] 33.0 % Low 40.0 - 52.0 % [facility] Hemoglobin (Bld) [Mass/Vol] 11.6 g/dL Low 13.0 - 18.0 g/dL [facility] Immature granulocytes (Bld) [#/Vol] 0.0 10*3/uL NINF - 0.1 10*3/uL [facility] Immature granulocytes/100 WBC (Bld) 0.3 % 0.0 - 2.0 % [facility] Interpretation and review of laboratory results Abnormal [facility] Lymphocytes (Bld) [#/Vol] 2.4 10*3/uL 1.0 - 4.3 10*3/uL [facility] Lymphocytes/100 WBC (Bld) 38.5 % 15.0 - 45.0 % [facility] MCH (RBC) [Entitic mass] 32.0 pg 26.0 - 34.[address] [facility] MCHC (RBC) [Mass/Vol] 35.2 % 30.5 - 36.0 % [facility] MCV (RBC) [Entitic vol] 91.2 fL 77.0 - 99.0 fL [facility] Monocytes (Bld) [#/Vol] 0.7 10*3/uL 0.0 - 0.9 10*3/uL [facility] Monocytes/100 WBC (Bld) 12.1 % 5.0 - 13.0 % [facility] Neutrophils (Bld) [#/Vol] 2.8 10*3/uL 1.8 - 7.5 10*3/uL [facility] Neutrophils/100 WBC (Bld) 46.3 % 38.0 - 82.0 % [facility] Nucleated RBC/100 WBC (Bld) [Ratio] 0.0 % [facility] Platelet mean volume (Bld) [Entitic vol] 9.3 fL 9.0 - 12.[address] [facility] Platelets (Bld) [#/Vol] 128 10*3/uL Low 140 - 440 10*3/uL [facility] RBC (Bld) [#/Vol] 3.62 10*6/uL Low 4.40 - 5.9 0 10*6/uL [facility] WBC (Bld) [#/Vol] 6.1 10*3/uL 3.6 - 10.7 10*3/uL [facility] CBC WITH AUTO DIFFERENTIALon 01-24-2024 Basophils (Bld) [#/Vol] 0.0 10*3/uL Normal 0.0-0.2 [facility] Comment on above: Performed By: #### L [id number] ####Fur Comber: ARA WRIGHT ([phone])[facility])[address] [place] [address] Basophils/100 WBC (Bld) 0.5 % Normal 0.0-2.0 [facility] Comment on above: Performed By: #### L [id number] ####Fur Comber: ARA WRIGHT ([id number])[facility])[address] [place] [address] Eosinophils (Bld) [#/Vol] 0.1 10*3/uL Normal 0.0-0.5 [facility] Comment on above: Performed By: #### L [id number] ####Fur Comber: ARA WRIGHT ([id number])[facility])[address] [place] [address] Eosinophils/100 WBC (Bld) 2.3 % Normal 0.0-6.0 [facility] Comment on above: Performed By: #### L [id number] ####Fur Comber: ARA WRIGHT ([phone])[facility])[address] [place] [address] Erythrocyte distribution width (RBC) [Ratio] 13.9 % Normal 11.5-15.0 [facility] Comment on above: Performed By: #### L [id number] ####Fur Comber: ARA WRIGHT ([id number])[facility])[address] [place] [address] Hematocrit (Bld) [Volume fraction] 33.0 % Low 40.0-52.[address] [facility] Comment on above: Performed By: #### L [id number] ####Fur Comber: ARA RWIGHT ([id number])[facility])[address] [place] [address] Hemoglobin (Bld) [Mass/Vol] 11.6 g/dL Low 13.0-18.0 [facility] Comment on above: Performed By: #### L [id number] ####Fur Comber: ARA WRIGHT ([id number])[facility])[address] [place] [address] IMMATURE GRANS % 0.3 % Normal 0.0-2.0 [facility] Comment on above: Performed By: #### L [id number] ####Fur Comber: ARA WRIGHT ([id number])[facility])[address] [place] [address] IMMATURE GRANS ABSOLUTE 0.0 10*3/uL Normal <0.1 [facility] Comment on above: Performed By: #### L [id number] ####Fur Comber: ARA WRIGHT ([id number])[facility])[address] [place] [address] Lymphocytes (Bld) [#/Vol] 2.4 10*3/uL Normal 1.0-4.[address] [facility] Comment on above: Performed By: #### L [id number] ####Fur Comber: ARA WRIGHT ([id number])[facility])[address] [place] [address] Lymphocytes/100 WBC (Bld) 38.5 % Normal 15.0-45.0 [facility] Comment on above: Performed By: #### L [id number] ####Fur Comber: ARA WRIGHT ([id number])[facility])[address] [place] [address] MCH (RBC) [Entitic mass] 32.0 pg Normal 26.0-34.0 [facility] Comment on above: Performed By: #### L [id number] ####Fur Comber: ARA WRIGHT ([id number])[facility])[address] [place] [address] MCHC 35.2 % Normal 30.5-36.0 [facility] Comment on above: Performed By: #### L [id number] ####Fur Comber: ARA WRIGHT ([id number])[facility])[address] [place] [address] MCV (RBC) [Entitic vol] 91.2 fL Normal 77.0-99.0 [facility] Comment on above: Performed By: #### L [id number] ####Fur Comber: ARA WRIGHT ([id number])[facility])[address] [place] [address] Monocytes (Bld) [#/Vol] 0.7 10*3/uL Normal 0.0-0.9 [facility] Comment on above: Performed By: #### L [id number] ####Fur Comber: ARA WRIGHT ([id number])[facility])[address] [place] [address] Monocytes/100 WBC (Bld) 12.1 % Normal 5.0-13.0 [facility] Comment on above: Performed By: #### L [id number] ####Fur Comber: ARA WRIGHT ([phone])[facility])[address] [place] [address] NEUTROPHILS ABSOLUTE 2.8 10*3/uL Normal 1.8-7.5 [facility] Comment on above: Performed By: #### L [id number] ####Fur Comber: ARA [id number])[facility] ([facility])[address] [place] [address] Neutrophils/100 WBC (Bld) 46.3 % Normal 38.0-82.0 [facility] Comment on above: Performed By: #### L [id number] ####Fur Comber: ARA WRIGHT ([phone])[facility] ([facility])[address] [place] [address] NRBC 0.0 /100 WBCs Normal 0.0-2.0 [facility] Comment on above: Performed By: #### L [id number] ####Fur Comber: ARA WRIGHT ([id number])[facility] ([facility])[address] [place] [address] Platelet mean volume (Bld) [Entitic vol] 9.3 fL Normal 9.0-12.7 [facility] Comment on above: Performed By: #### L [id number] ####Fur Comber: ARA WRIGHT ([id number])[facility] ([facility])[address] [place] [address] Platelets (Bld) [#/Vol] 128 10*3/uL Low 140-440 [facility] Comment on above: Performed By: #### L [id number] ####Fur Comber: ARA WRIGHT ([id number])[facility] ([facility])[address] [place] [address] RBC (Bld) [#/Vol] 3.62 10*6/uL Low 4.40-5.90 [facility] Comment on above: Performed By: #### L [id number] ####Fur Comber: ARA WRIGHT ([id number])[facility] ([facility])[address] [place] [address] WBC (Bld) [#/Vol] 6.1 10*3/uL Normal 3.6-10.7 [facility] Comment on above: Performed By: #### L [id number] ####Fur Comber: ARA WRIGHT ([id number])[facility] ([facility])[address] [place] [address] Laboratory - Chemistry and C hemistry - challengeon 01-24-2024 Magnesium [Mass/Vol] 1.6 mg/dL 1.6 - 2 .3 mg/dL [facility] MAGNESIUMon 01-24-2024 Magnesium [Mass/Vol] 1.6 mg/dL Normal 1.6-2.3 [facility] Comment on above: Performed By: #### L [id number], [id number] ####Fur Comber: ARA WRIGHT ([id number])[facility])[address] [place] [address] Magnesium [Mass/Vol]on 01-23 Interpretation and review of laboratory results Normal [facility] No Panel Informationon 01-[address] [facility] Progress Noteon 01-24-2024 Progress Note Normal [facility] Progress Note Patient requesting A tivan stating so anxious and shaky Also requested tylenol and nausea med Normal [facility] BASIC METABOLIC PANELon Anion gap [Moles/Vol] 12 mmol/L Normal 3-13 [facility] Comment on above: Performed By: #### L AB15, [id number] ####Fur Comber: ARA WRIGHT ([id number])[facility])[address] [place] [address] Calcium [Mass/Vol] 9.8 mg/dL Normal 8.4-10.4 [facility] Comment on above: Performed By: #### L AB15, [id number] ####Fur Comber: ARA WRIGHT ([id number])[facility])[address] [place] [address] Chloride [Moles/Vol] 98 mmol/L Normal 98-107 [facility] Comment on above: Performed By: #### L [id number], [id number] ####Fur Comber: ARA WRIGHT ([id number])[facility])[address] [place] [address] CO2 [Moles/Vol] 19 mmol/L Low 22-30 [facility] Comment on above: Performed By: #### L AB15, [id number] ####Fur Comber: ARA WRIGHT ([id number])[facility])[address] [place] [address] Creatinine [Mass/Vol] 0.90 mg/dL Normal 0.66-1.25 [facility] Comment on above: Performed By: #### L AB15, [id number] ####Fur Comber: ARA WRIGHT ([id number])[facility] ([facility])[address] [place] [address] GLOMERULAR FILTRATION RATE ML/MIN/1.73 SQ M.PREDICTED >90.0 Normal >60.0 [facility] Comment on above: Result Comment: Calc ulation based on the Chronic Kidney Disease Epidemiology Collaboration (CKD-EPI) equation refit without adjustment for race Performed By: #### L AB15, [id number] ####Fur Comber: ARA WRIGHT ([id number])[facility] ([facility])[address] [place] [address] [place] Glucose [Mass/Vol] 136 mg/dL High 70-100 [facility] Comment on above: Performed By: #### L AB15, [id number] ####Fur Comber: ARA WRIGHT ([id number])[facility] ([facility])[address] [place] [address] [place] Potassium [Moles/Vol] 3.9 mmol/L Normal 3.5-5.1 [facility] Comment on above: Performed By: #### L AB15, [id number] ####Fur Comber: ARA WRIGHT ([id number])[facility] ([facility])[address] [place] [address] [place] Sodium [Moles/Vol] 130 mmol/L Low 135-145 [facility] Comment on above: Performed By: #### L AB15, [id number] ####Fur Comber: ARA WRIGHT ([id number])[facility] ([facility])[address] [place] [address] [place] Urea nitrogen [Mass/Vol] 8 mg/dL Low 9-20 [facility] Comment on above: Performed By: #### L AB15, [id number] ####Fur Comber: ARA WRIGHT ([id number])[facility] ([facility])[address] [place] [address] Basic metabolic 1998 panelon 01-23-2024 Anion gap [Moles/Vol] 12 mmol/L 3 - 13 mmol/L [facility] Calcium [Mass/Vol] 9.8 mg/dL 8.4 - 10. 4 mg/dL [facility] Chloride [Moles/Vol] 98 mmol/L 98 - 10 7 mmol/L [facility] CO2 [Moles/Vol] 19 mmol/L Low 22 - 30 mmol/L [facility] Creatinine [Mass/Vol] 0.90 mg/dL 0.66 - 1.25 mg/dL [facility] GFR/1.73 sq M.predicted MDRD (S/P/Bld) [Vol rate/Area] - PINF [facility] Comment on above: Calculation based on the Chronic Kidney Disease Epidemiology Collaboration (CKD-EPI) equation refit without adjustment for race Glucose [Mass/Vol] 136 mg/dL High 70 - 100 mg/dL [facility] Interpretation and review of laboratory results Abnormal [facility] Potassium [Moles/Vol] 3.9 mmol/L 3.5 - 5.1 mmol/L [facility] Sodium [Moles/Vol] 130 mmol/L Low 135 - 145 mmol/L [facility] Urea nitrogen [Mass/Vol] 8 mg/dL Low 9 - 20 mg/dL [facility] CBC W Auto Differential pane l (Bld)Ordered By: Rita Swan on 01-23-2024 Basophils (Bld) [#/Vol] 0.0 10*3/uL 0.0 - 0.2 10*3/uL [email or web address] Basophils/100 WBC (Bld) 0.4 % 0.0 - 2.0 % [facility] Eosinophils (Bld) [#/Vol] 0.2 10*3/uL 0.0 - 0.5 10*3/uL [email or web address] Eosinophils/100 WBC (Bld) 2.3 % 0.0 - 6.0 % [facility] Erythrocyte distribution width (RBC) [Ratio] 14.2 % 11.5 - 15.0 % [facility] Hematocrit (Bld) [Volume fraction] 36.0 % Low 40.0 - 52.0 % [facility] Hemoglobin (Bld) [Mass/Vol] 12.4 g/dL Low 13.0 - 18.0 g/dL [facility] Immature granulocytes (Bld) [#/Vol] 0.0 10*3/uL NINF - 0.1 10*3/uL [facility] Immature granulocytes/100 WBC (Bld) 0.4 % 0.0 - 2.0 % [facility] Interpretation and review of laboratory results Abnormal [facility] IPF [address] [facility] Lymphocytes (Bld) [#/Vol] 1.8 10*3/uL 1.0 - 4.3 10*3/uL [facility] Lymphocytes/100 WBC (Bld) 25.3 % 15.0 - 45.0 % [facility] MCH (RBC) [Entitic mass] 31.8 pg 26.0 - 34.[address] [facility] MCHC (RBC) [Mass/Vol] 34.4 % 30.5 - 36.0 % [facility] MCV (RBC) [Entitic vol] 92.3 fL 77.0 - 99.[address] [facility] Monocytes (Bld) [#/Vol] 1.0 10*3/uL High 0.0 - 0.9 10*3/uL [facility] Monocytes/100 WBC (Bld) 13.6 % High 5.0 - 13.0 % [facility] Neutrophils (Bld) [#/Vol] 4.1 10*3/uL 1.8 - 7.5 10*3/uL [facility] Neutrophils/100 WBC (Bld) 58.0 % 38.0 - 82.0 % [facility] Nucleated RBC/100 WBC (Bld) [Ratio] 0.0 % [facility] Platelet mean volume (Bld) [Entitic vol] 9.4 fL 9.0 - 12.[address] [facility] Platelets (Bld) [#/Vol] 139 10*3/uL Low 140 - 440 10*3/uL [facility] RBC (Bld) [#/Vol] 3.90 10*6/uL Low 4.40 - 5.9 0 10*6/uL [facility] WBC (Bld) [#/Vol] 7.1 10*3/uL 3.6 - 10.7 10*3/uL [facility] CBC WITH AUTO DIFFERENTIALon 01-23-2024 Basophils (Bld) [#/Vol] 0.0 10*3/uL Normal 0.0-0.2 [facility] Comment on above: Performed By: #### L [id number] ####Fur Comber: ARA WRIGHT ([id number])[facility])[address] [place] [address] Basophils/100 WBC (Bld) 0.4 % Normal 0.0-2.0 [facility] Comment on above: Performed By: #### L [id number] ####Fur Comber: ARA WRIGHT ([id number])[facility])[address] [place] [address] Eosinophils (Bld) [#/Vol] 0.2 10*3/uL Normal 0.0-0.5 [facility] Comment on above: Performed By: #### L [id number] ####Fur Comber: ARA WRIGHT ([id number])[facility])[address] [place] [address] Eosinophils/100 WBC (Bld) 2.3 % Normal 0.0-6.0 [facility] Comment on above: Performed By: #### L [id number] ####Fur Comber: ARA WRIGHT ([id number])[facility])[address] [place] [address] Erythrocyte distribution width (RBC) [Ratio] 14.2 % Normal 11.5-15.0 [facility] Comment on above: Performed By: #### L [id number] ####Fur Comber: ARA WRIGHT ([id number])[facility])[address] [place] [address] Hematocrit (Bld) [Volume fraction] 36.0 % Low 40.0-52.0 [facility] Comment on above: Performed By: #### L [id number] ####Fur Comber: ARA WRIGHT ([id number])[facility])[address] [place] [address] Hemoglobin (Bld) [Mass/Vol] 12.4 g/dL Low 13.0-18.0 [facility] Comment on above: Performed By: #### L [id number] ####Fur Comber: ARA WRIGHT ([id number])[facility])[address] [place] [address] IMMATURE GRANS % 0.4 % Normal 0.0-2.0 [facility] Comment on above: Performed By: #### L [id number] ####Fur Comber: ARA WRIGHT ([id number])[facility])[address] [place] [address] IMMATURE GRANS ABSOLUTE 0.0 10*3/uL Normal <0.1 [facility] Comment on above: Performed By: #### L [id number] ####Fur Comber: ARA WRIGHT ([id number])[address] IPF 2 Normal [facility] Comment on above: Performed By: #### L [id number] ####Fur Comber: ARA WRIGHT ([id number])[facility])[address] [place] [address] Lymphocytes (Bld) [#/Vol] 1.8 10*3/uL Normal 1.0-4.[address] [facility] Comment on above: Performed By: #### L [id number] ####Fur Comber: ARA WRIGHT ([id number])[address] Lymphocytes/100 WBC (Bld) 25.3 % Normal 15.0-45.[address] [facility] Comment on above: Performed By: #### L [id number] ####Fur Comber: ARA WRIGHT ([id number])[facility])[address] [place] [address] MCH (RBC) [Entitic mass] 31.8 pg Normal 26.0-34.[address] [facility] Comment on above: Performed By: #### L [id number] ####Fur Comber: ARA WRIGHT ([id number])[address] MCHC 34.4 % Normal 30.5-36.0 [facility] Comment on above: Performed By: #### L [id number] ####Fur Comber: ARA WRIGHT ([id number])[facility])[address] [place] [address] MCV (RBC) [Entitic vol] 92.3 fL Normal 77.0-99.0 [facility] Comment on above: Performed By: #### L [id number] ####Fur Comber: ARA WRIGHT ([id number])[facility] ([facility])[address] [place] [address] Monocytes (Bld) [#/Vol] 1.0 10*3/uL High 0.0-0.9 [facility] Comment on above: Performed By: #### L [id number] ####Fur Comber: ARA WRIGHT ([id number])[facility])[address] [place] [address] Monocytes/100 WBC (Bld) 13.6 % High 5.0-13.0 [facility] Comment on above: Performed By: #### L [id number] ####Fur Comber: ARA WRIGHT ([id number])[facility])[address] [place] [address] NEUTROPHILS ABSOLUTE 4.1 10*3/uL Normal 1.8-7.5 [facility] Comment on above: Performed By: #### L [id number] ####Fur Comber: ARA WRIGHT ([id number])[facility])[address] [place] [address] Neutrophils/100 WBC (Bld) 58.0 % Normal 38.0-82.0 [facility] Comment on above: Performed By: #### L [id number] ####Fur Comber: ARA WRIGHT ([id number])[facility])[address] [place] [address] NRBC 0.0 /100 WBCs Normal 0.0-2.0 [facility] Comment on above: Performed By: #### L [id number] ####Fur Comber: ARA WRIGHT ([id number])[facility] ([facility])[address] [place] [address] Platelet mean volume (Bld) [Entitic vol] 9.4 fL Normal 9.0-12.7 [facility] Comment on above: Performed By: #### L [id number] ####Fur Comber: ARA WRIGHT ([id number])[facility] ([facility])[address] [place] [address] Platelets (Bld) [#/Vol] 139 10*3/uL Low 140-440 [facility] Comment on above: Performed By: #### L [id number] ####Fur Comber: ARA WRIGHT ([id number])[facility] ([facility])[address] [place] [address] RBC (Bld) [#/Vol] 3.90 10*6/uL Low 4.40-5.90 [facility] Comment on above: Performed By: #### L [id number] ####Fur Comber: ARA WRIGHT ([id number])[facility] ([facility])[address] [place] [address] WBC (Bld) [#/Vol] 7.1 10*3/uL Normal 3.6-10.7 [facility] Comment on above: Performed By: #### L [id number] ####Fur Comber: ARA WRIGHT ([id number])[facility] ([facility])[address] [place] [address] Laboratory - Chemistry and C hemistry - challengeon 01-23-2024 Magnesium [Mass/Vol] 1.7 mg/dL 1.6 - 2 .3 mg/dL [facility] MAGNESIUMon 01-23-2024 Magnesium [Mass/Vol] 1.7 mg/dL Normal 1.6-2.3 [facility] Comment on above: Performed By: #### L AB15, [id number] ####Fur Comber: ARA WRIGHT ([id number])[facility] ([facility])[address] [place] [address] Magnesium [Mass/Vol]on 01-22 Interpretation and review of laboratory results Normal [facility] No Panel Informationon 01-[address] [facility] Progress Noteon 01-23-2024 Progress Note Normal [facility] C. DIFFICILE BY PCR WITH REF BEATRICE TO EIAon 01-22-2024 C. DIFFICILE BY PCR WITH REFLEX TO EIA C. DIFFICILE TOXIN PCR Reference Not Detected Not Detected ORDER COMMENTS: C. difficile infection is unlikely to be present. Methodology: Real-time PCR Normal [facility] Comment on above: Performed By: #### L [id number] ####Fur Comber: ARA WRIGHT ([id number])[facility] ([facility])[address] [place] [address] C. difficile toxin genes SHANE +probe Ql (Stl)on 01-22-2024 C. difficile toxin B tcdB gene SHANE+probe Ql (Stl) Not detected Not Detected [facility] Interpretation and review of laboratory results Normal [facility] C. difficile infecti on is unlikely to be present. Methodology: Real-time PCR [facility] CARECOORDon 01-22-2024 CARECOORD Normal [facility] CARECOORD Normal [facility] CBC W Auto Differential pane l (Bld)on 01-22-2024 Basophils (Bld) [#/Vol] 0.0 10*3/uL 0.0 - 0.2 10*3/uL [facility] Basophils/100 WBC (Bld) 0.4 % 0.0 - 2.0 % [facility] Eosinophils (Bld) [#/Vol] 0.1 10*3/uL 0.0 - 0.5 10*3/uL [facility] Eosinophils/100 WBC (Bld) 1.5 % 0.0 - 6.0 % [facility] Erythrocyte distribution width (RBC) [Ratio] 14.0 % 11.5 - 15.0 % [facility] Hematocrit (Bld) [Volume fraction] 30.1 % Low 40.0 - 52.0 % [facility] Hemoglobin (Bld) [Mass/Vol] 10.6 g/dL Low 13.0 - 18.0 g/dL [facility] Immature granulocytes (Bld) [#/Vol] 0.0 10*3/uL NINF - 0.1 10*3/uL [facility] Immature granulocytes/100 WBC (Bld) 0.2 % 0.0 - 2.0 % [facility] Interpretation and review of laboratory results Abnormal [facility] IPF 3 [facility] Lymphocytes (Bld) [#/Vol] 1.7 10*3/uL 1.0 - 4.3 10*3/uL [facility] Lymphocytes/100 WBC (Bld) 35.7 % 15.0 - 45.0 % [facility] MCH (RBC) [Entitic mass] 32.5 pg 26.0 - 34.[address] [facility] MCHC (RBC) [Mass/Vol] 35.2 % 30.5 - 36.0 % [facility] MCV (RBC) [Entitic vol] 92.3 fL 77.0 - 99.0 fL [facility] Monocytes (Bld) [#/Vol] 0.7 10*3/uL 0.0 - 0.9 10*3/uL [facility] Monocytes/100 WBC (Bld) 13.9 % High 5.0 - 13.0 % [facility] Neutrophils (Bld) [#/Vol] 2.3 10*3/uL 1.8 - 7.5 10*3/uL [facility] Neutrophils/100 WBC (Bld) 48.3 % 38.0 - 82.0 % [facility] Nucleated RBC/100 WBC (Bld) [Ratio] 0.0 % [facility] Platelet mean volume (Bld) [Entitic vol] 10.2 fL 9.0 - 12.7 fL [facility] Platelets (Bld) [#/Vol] 83 10*3/uL Low 140 - 440 10*3/uL [facility] RBC (Bld) [#/Vol] 3.26 10*6/uL Low 4.40 - 5.9 0 10*6/uL [facility] WBC (Bld) [#/Vol] 4.7 10*3/uL 3.6 - 10.7 10*3/uL [facility] CBC WITH AUTO DIFFERENTIALon 01-22-2024 Basophils (Bld) [#/Vol] 0.0 10*3/uL Normal 0.0-0.2 [facility] Comment on above: Performed By: #### L [id number] ####Fur Comber: ARA WRIGHT ([id number])[facility])[address] [place] [address] Basophils/100 WBC (Bld) 0.4 % Normal 0.0-2.0 [facility] Comment on above: Performed By: #### L [id number] ####Fur Comber: ARA WRIGHT ([id number])[facility])[address] [place] [address] Eosinophils (Bld) [#/Vol] 0.1 10*3/uL Normal 0.0-0.5 [facility] Comment on above: Performed By: #### L [id number] ####Fur Comber: ARA WRIGHT ([id number])[address] Eosinophils/100 WBC (Bld) 1.5 % Normal 0.0-6.0 [facility] Comment on above: Performed By: #### L [id number] ####Fur Comber: ARA WRIGHT ([id number])[facility])[address] [place] [address] Erythrocyte distribution width (RBC) [Ratio] 14.0 % Normal 11.5-15.0 [facility] Comment on above: Performed By: #### L [id number] ####Fur Comber: ARA WRIGHT ([id number])[address] Hematocrit (Bld) [Volume fraction] 30.1 % Low 40.0-52.0 [facility] Comment on above: Performed By: #### L [id number] ####Fur Comber: ARA WRIGHT ([id number])[facility])[address] [place] [address] Hemoglobin (Bld) [Mass/Vol] 10.6 g/dL Low 13.0-18.0 [facility] Comment on above: Performed By: #### L [id number] ####Fur Comber: ARA WRIGHT ([id number])[facility])[address] [place] [address] IMMATURE GRANS % 0.2 % Normal 0.0-2.0 [facility] Comment on above: Performed By: #### L [id number] ####Fur Comber: ARA WRIGHT ([id number])[facility])[address] [place] [address] IMMATURE GRANS ABSOLUTE 0.0 10*3/uL Normal <0.1 [facility] Comment on above: Performed By: #### L [id number] ####Fur Comber: ARA WRIGHT ([phone])[facility])[address] [place] [address] [place] IPF 3 Normal [facility] Comment on above: Performed By: #### L [id number] ####Fur Comber: ARA WRIGHT ([id number])[facility])[address] [place] [address] Lymphocytes (Bld) [#/Vol] 1.7 10*3/uL Normal 1.0-4.3 [facility] Comment on above: Performed By: #### L [id number] ####Fur Comber: ARA WRIGHT ([id number])[facility])[address] [place] [address] Lymphocytes/100 WBC (Bld) 35.7 % Normal 15.0-45.0 [facility] Comment on above: Performed By: #### L [id number] ####Fur Comber: ARA WRIGHT ([id number])[facility])[address] [place] [address] MCH (RBC) [Entitic mass] 32.5 pg Normal 26.0-34.0 [facility] Comment on above: Performed By: #### L [id number] ####Fur Comber: ARA WRIGHT ([id number])[facility])[address] [place] [address] MCHC 35.2 % Normal 30.5-36.0 [facility] Comment on above: Performed By: #### L [id number] ####Fur Comber: ARA WRIGHT ([id number])[facility] ([facility])[address] [place] [address] MCV (RBC) [Entitic vol] 92.3 fL Normal 77.0-99.0 [facility] Comment on above: Performed By: #### L [id number] ####Fur Comber: ARA WRIGHT ([id number])[facility] ([facility])[address] [place] [address] Monocytes (Bld) [#/Vol] 0.7 10*3/uL Normal 0.0-0.9 [facility] Comment on above: Performed By: #### L [id number] ####Fur Comber: ARA WRIGHT ([id number])[facility] ([facility])[address] [place] [address] Monocytes/100 WBC (Bld) 13.9 % High 5.0-13.0 [facility] Comment on above: Performed By: #### L [id number] ####Fur Comber: ARA WRIGHT ([id number])[facility] ([facility])[address] [place] [address] NEUTROPHILS ABSOLUTE 2.3 10*3/uL Normal 1.8-7.5 [facility] Comment on above: Performed By: #### L [id number] ####Fur Comber: ARA WRIGHT ([id number])[facility] ([facility])[address] [place] [address] Neutrophils/100 WBC (Bld) 48.3 % Normal 38.0-82.0 [facility] Comment on above: Performed By: #### L [id number] ####Fur Comber: ARA WRIGHT ([id number])[facility])[address] [place] [address] NRBC 0.0 /100 WBCs Normal 0.0-2.0 [facility] Comment on above: Performed By: #### L [id number] ####Fur Comber: ARA WRIGHT ([id number])[facility] ([facility])[address] [place] [address] Platelet mean volume (Bld) [Entitic vol] 10.2 fL Normal 9.0-12.7 [facility] Comment on above: Performed By: #### L [id number] ####Fur Comber: ARA WRIGHT ([id number])[facility])[address] [place] [address] Platelets (Bld) [#/Vol] 83 10*3/uL Low 140-440 [facility] Comment on above: Performed By: #### L [id number] ####Fur Comber: ARA WRIGHT ([id number])[facility])[address] [place] [address] RBC (Bld) [#/Vol] 3.26 10*6/uL Low 4.40-5.90 [facility] Comment on above: Performed By: #### L [id number] ####Fur Comber: ARA WRIGHT ([id number])[facility] ([facility])[address] [place] [address] WBC (Bld) [#/Vol] 4.7 10*3/uL Normal 3.6-10.7 [facility] Comment on above: Performed By: #### L [id number] ####Fur Comber: ARA WRIGHT ([id number])[facility])[address] [place] [address] COMPREHENSIVE METABOLIC PANE Peter 01-22-2024 Albumin [Mass/Vol] 3.9 g/dL Normal 3.5-5.0 [facility] Comment on above: Performed By: #### L AB103, LAB17 ####Fur Comber: ARA WRIGHT ([id number])[facility])[address] [place] [address] ALP [Catalytic activity/Vol] 43 U/L Normal 38-126 [facility] Comment on above: Performed By: #### L AB103, LAB17 ####Fur Comber: ARA WRIGHT ([id number])[facility])[address] [place] [address] [place] ALT [Catalytic activity/Vol] 20 U/L Normal 0-49 [facility] Comment on above: Performed By: #### L ADRIANNA, LAB17 ####Fur Comber: ARA WRIGHT ([id number])[facility] ([facility])[address] [place] [address] Anion gap [Moles/Vol] 9 mmol/L Normal 3-13 [facility] Comment on above: Performed By: #### L ADRIANNA, LAB17 ####Fur Comber: ARA WRIGHT ([id number])[facility] ([facility])[address] [place] [address] AST [Catalytic activity/Vol] 29 U/L Normal 15-46 [facility] Comment on above: Performed By: #### Popeye RODAS, LAB17 ####Fur Comber: ARA WRIGHT ([id number])[facility] ([facility])[address] [place] [address] Bilirubin [Mass/Vol] 0.4 mg/dL Normal 0.2-1.3 [facility] Comment on above: Performed By: #### Popeye RODAS, LAB17 ####Fur Comber: ARA WRIGHT ([phone])[facility])[address] [place] [address] Calcium [Mass/Vol] 9.2 mg/dL Normal 8.4-10.4 [facility] Comment on above: Performed By: #### Popeye RODAS, LAB17 ####Fur Comber: ARA WRIGHT ([id number])[facility])[address] [place] [address] [place] Chloride [Moles/Vol] 102 mmol/L Normal 98-107 [facility] Comment on above: Performed By: #### L AB103, LAB17 ####Fur Comber: ARA WRIGHT ([id number])[facility])[address] [place] [address] [place] CO2 [Moles/Vol] 20 mmol/L Low 22-30 [facility] Comment on above: Performed By: #### L AB103, LAB17 ####Fur Comber: ARA WRIGHT ([id number])[facility])[address] [place] [address] Creatinine [Mass/Vol] 0.71 mg/dL Normal 0.66-1.25 [facility] Comment on above: Performed By: #### L AB103, LAB17 ####Fur Comber: ARA WRIGHT ([phone])[facility])[address] [place] [address] GLOMERULAR FILTRATION RATE ML/MIN/1.73 SQ M.PREDICTED >90.0 Normal >60.0 [facility] Comment on above: Result Comment: Calc ulation based on the Chronic Kidney Disease Epidemiology Collaboration (CKD-EPI) equation refit without adjustment for race Performed By: #### L ADRIANNA, LAB17 ####Fur Comber: ARA WRIGHT ([id number])[facility] ([facility])[address] [place] [address] Glucose [Mass/Vol] 111 mg/dL High 70-100 [facility] Comment on above: Performed By: #### L 103, LAB17 ####Fur Comber: ARA WRIGHT ([id number])[facility])[address] [place] [address] Potassium [Moles/Vol] 3.4 mmol/L Low 3.5-5.1 [facility] Comment on above: Performed By: #### L ABJenn, LAB17 ####Fur Comber: ARA WRIGHT ([id number])[facility])[address] [place] [address] Protein [Mass/Vol] 6.8 g/dL Normal 6.3-8.2 [facility] Comment on above: Performed By: #### L AB103, LAB17 ####Fur Comber: ARA WIRGHT ([id number])[facility])[address] [place] [address] Sodium [Moles/Vol] 132 mmol/L Low 135-145 [facility] Comment on above: Performed By: #### L AB103, LAB17 ####Fur Comber: ARA WRIGHT ([id number])[facility] ([facility])[address] [place] [address] Urea nitrogen [Mass/Vol] 13 mg/dL Normal 9-[address] [facility] Comment on above: Performed By: #### L AB103, LAB17 ####Fur Comber: ARA WRIGHT ([id number])[facility] [place] [address] Comprehensive metabolic 1998 panelon 01-22-2024 Albumin [Mass/Vol] 3.9 g/dL 3.5 - 5.0 g/dL [facility] ALP [Catalytic activity/Vol] 43 U/L 38 - 126 U/L [facility] ALT [Catalytic activity/Vol] 20 U/L 0 - 49 U/L [facility] Anion gap [Moles/Vol] 9 mmol/L 3 - 13 mmol/L [facility] AST [Catalytic activity/Vol] 29 U/L 15 - 46 U/L [facility] Bilirubin [Mass/Vol] 0.4 mg/dL 0.2 - 1 .3 mg/dL [facility] Calcium [Mass/Vol] 9.2 mg/dL 8.4 - 10. 4 mg/dL [facility] Chloride [Moles/Vol] 102 mmol/L 98 - 10 7 mmol/L [facility] CO2 [Moles/Vol] 20 mmol/L Low 22 - 30 mmol/L [facility] Creatinine [Mass/Vol] 0.71 mg/dL 0.66 - 1.25 mg/dL [facility] GFR/1.73 sq M.predicted MDRD (S/P/Bld) [Vol rate/Area] - PINF [facility] Comment on above: Calculation based on the Chronic Kidney Disease Epidemiology Collaboration (CKD-EPI) equation refit without adjustment for race Glucose [Mass/Vol] 111 mg/dL High 70 - 100 mg/dL [facility] Interpretation and review of laboratory results Abnormal [facility] Potassium [Moles/Vol] 3.4 mmol/L Low 3.5 - 5.1 mmol/L [facility] Protein [Mass/Vol] 6.8 g/dL 6.3 - 8.2 g/dL [facility] Sodium [Moles/Vol] 132 mmol/L Low 135 - 145 mmol/L [facility] Urea nitrogen [Mass/Vol] 13 mg/dL 9 - 20 mg/dL [facility] Health Consulton 01-22-2024 Consult Normal [facility] IDNon 01-22-2024 IDN Normal [facility] Laboratory - Chemistry and C hemistry - challengeon 01-22-2024 Magnesium [Mass/Vol] 1.5 mg/dL Low 1.6 - 2 .3 mg/dL [facility] MAGNESIUMon 01-22-2024 Magnesium [Mass/Vol] 1.5 mg/dL Low 1.6-2.3 [facility] Comment on above: Performed By: #### L AB103, LAB17 ####Fur Comber: ARA WRIGHT ([id number])[address] Magnesium [Mass/Vol]on 01-21 Interpretation and review of laboratory results Abnormal [facility] Progress Noteon 01-22-2024 Progress Note Normal [facility] Progress Note Normal [facility] Progress Note Normal [facility] CARECOORDon 01-21-2024 CARECOORD Normal [facility] CBC W Auto Differential pane l (Bld)on 01-21-2024 Basophils (Bld) [#/Vol] 0.0 10*3/uL 0.0 - 0.2 10*3/uL [facility] Basophils/100 WBC (Bld) 0.4 % 0.0 - 2.0 % [facility] Eosinophils (Bld) [#/Vol] 0.1 10*3/uL 0.0 - 0.5 10*3/uL [facility] Eosinophils/100 WBC (Bld) 1.3 % 0.0 - 6.0 % [facility] Erythrocyte distribution width (RBC) [Ratio] 13.9 % 11.5 - 15.0 % [facility] Hematocrit (Bld) [Volume fraction] 33.8 % Low 40.0 - 52.0 % [facility] Hemoglobin (Bld) [Mass/Vol] 11.8 g/dL Low 13.0 - 18.0 g/dL [facility] Immature granulocytes (Bld) [#/Vol] 0.0 10*3/uL NINF - 0.1 10*3/uL [facility] Immature granulocytes/100 WBC (Bld) 0.4 % 0.0 - 2.0 % [facility] Interpretation and review of laboratory results Abnormal [facility] IPF [address] [facility] Lymphocytes (Bld) [#/Vol] 1.5 10*3/uL 1.0 - 4.3 10*3/uL [facility] Lymphocytes/100 WBC (Bld) 33.6 % 15.0 - 45.0 % [facility] MCH (RBC) [Entitic mass] 31.8 pg 26.0 - 34.[address] [facility] MCHC (RBC) [Mass/Vol] 34.9 % 30.5 - 36.0 % [facility] MCV (RBC) [Entitic vol] 91.1 fL 77.0 - 99.[address] [facility] Monocytes (Bld) [#/Vol] 0.5 10*3/uL 0.0 - 0.9 10*3/uL [facility] Monocytes/100 WBC (Bld) 11.4 % 5.0 - 13.0 % [facility] Neutrophils (Bld) [#/Vol] 2.4 10*3/uL 1.8 - 7.5 10*3/uL [facility] Neutrophils/100 WBC (Bld) 52.9 % 38.0 - 82.0 % [facility] Nucleated RBC/100 WBC (Bld) [Ratio] 0.0 % [facility] Platelet mean volume (Bld) [Entitic vol] 10.0 fL 9.0 - 12.[address] [facility] Platelets (Bld) [#/Vol] 82 10*3/uL Low 140 - 440 10*3/uL [facility] RBC (Bld) [#/Vol] 3.71 10*6/uL Low 4.40 - 5.9 0 10*6/uL [facility] WBC (Bld) [#/Vol] 4.6 10*3/uL 3.6 - 10.7 10*3/uL [facility] CBC WITH AUTO DIFFERENTIALon 01-21-2024 Basophils (Bld) [#/Vol] 0.0 10*3/uL Normal 0.0-0.2 [facility] Comment on above: Performed By: #### L [id number] ####Fur Comber: ARA WRIGHT ([id number])[facility])[address] [place] [address] Basophils/100 WBC (Bld) 0.4 % Normal 0.0-2.0 [facility] Comment on above: Performed By: #### L [id number] ####Fur Comber: ARA WRIGHT ([id number])[facility])[address] [place] [address] Eosinophils (Bld) [#/Vol] 0.1 10*3/uL Normal 0.0-0.5 [facility] Comment on above: Performed By: #### L [id number] ####Fur Comber: ARA WRIGHT ([id number])[address] Eosinophils/100 WBC (Bld) 1.3 % Normal 0.0-6.0 [facility] Comment on above: Performed By: #### L [id number] ####Fur Comber: ARA WRIGHT ([id number])[facility])[address] [place] [address] Erythrocyte distribution width (RBC) [Ratio] 13.9 % Normal 11.5-15.0 [facility] Comment on above: Performed By: #### L [id number] ####Fur Comber: ARA WRIGHT ([id number])[address] Hematocrit (Bld) [Volume fraction] 33.8 % Low 40.0-52.0 [facility] Comment on above: Performed By: #### L [id number] ####Fur Comber: ARA WRIGHT ([id number])[address] Hemoglobin (Bld) [Mass/Vol] 11.8 g/dL Low 13.0-18.0 [facility] Comment on above: Performed By: #### L [id number] ####Fur Comber: ARA WRIGHT ([id number])[facility])[address] [place] [address] IMMATURE GRANS % 0.4 % Normal 0.0-2.0 [facility] Comment on above: Performed By: #### L [id number] ####Fur Comber: ARA WRIGHT ([id number])[facility])[address] [place] [address] IMMATURE GRANS ABSOLUTE 0.0 10*3/uL Normal <0.1 [facility] Comment on above: Performed By: #### L [id number] ####Fur Comber: ARA WRIGHT ([id number])[facility])[address] [place] [address] [place] IPF 3 Normal [facility] Comment on above: Performed By: #### L [id number] ####Fur Comber: ARA WRIGHT ([id number])[facility])[address] [place] [address] Lymphocytes (Bld) [#/Vol] 1.5 10*3/uL Normal 1.0-4.3 [facility] Comment on above: Performed By: #### L [id number] ####Fur Comber: ARA WRIGHT ([id number])[address] Lymphocytes/100 WBC (Bld) 33.6 % Normal 15.0-45.0 [facility] Comment on above: Performed By: #### L [id number] ####Fur Comber: ARA WRIGHT ([id number])[facility])[address] [place] [address] MCH (RBC) [Entitic mass] 31.8 pg Normal 26.0-34.0 [facility] Comment on above: Performed By: #### L [id number] ####Fur Comber: ARA WRIGHT ([id number])[address] MCHC 34.9 % Normal 30.5-36.0 [facility] Comment on above: Performed By: #### L [id number] ####Fur Comber: ARA WRIGHT ([id number])[facility] ([facility])[address] [place] [address] MCV (RBC) [Entitic vol] 91.1 fL Normal 77.0-99.0 [facility] Comment on above: Performed By: #### L [id number] ####Fur Comber: ARA WRIGHT ([id number])[facility] ([facility])[address] [place] [address] Monocytes (Bld) [#/Vol] 0.5 10*3/uL Normal 0.0-0.9 [facility] Comment on above: Performed By: #### L [id number] ####Fur Comber: ARA WRIGHT ([id number])[facility])[address] [place] [address] Monocytes/100 WBC (Bld) 11.4 % Normal 5.0-13.0 [facility] Comment on above: Performed By: #### L [id number] ####Fur Comber: ARA WRIGHT ([id number])[facility] ([facility])[address] [place] [address] NEUTROPHILS ABSOLUTE 2.4 10*3/uL Normal 1.8-7.5 [facility] Comment on above: Performed By: #### L [id number] ####Fur Comber: ARA WRIGHT ([id number])[facility])[address] [place] [address] Neutrophils/100 WBC (Bld) 52.9 % Normal 38.0-82.0 [facility] Comment on above: Performed By: #### L [id number] ####Fur Comber: ARA WRIGHT ([id number])[facility] ([facility])[address] [place] [address] [place] NRBC 0.0 /100 WBCs Normal 0.0-2.0 [facility] Comment on above: Performed By: #### L [id number] ####Fur Comber: ARA WRIGHT ([id number])[facility])[address] [place] [address] Platelet mean volume (Bld) [Entitic vol] 10.0 fL Normal 9.0-12.7 [facility] Comment on above: Performed By: #### L [id number] ####Fur Comber: ARA WRIGHT ([id number])[facility] ([facility])[address] [place] [address] Platelets (Bld) [#/Vol] 82 10*3/uL Low 140-440 [facility] Comment on above: Performed By: #### L [id number] ####Fur Comber: ARA WRIGHT ([id number])[facility] ([facility])[address] [place] [address] RBC (Bld) [#/Vol] 3.71 10*6/uL Low 4.40-5.90 [facility] Comment on above: Performed By: #### L [id number] ####Fur Comber: ARA WRIGHT ([id number])[facility] ([facility])[address] [place] [address] WBC (Bld) [#/Vol] 4.6 10*3/uL Normal 3.6-10.7 [facility] Comment on above: Performed By: #### L [id number] ####Fur Comber: ARA WRIGHT ([id number])[facility] ([facility])[address] [place] [address] COMPREHENSIVE METABOLIC PANE Peter 01-21-2024 Albumin [Mass/Vol] 4.0 g/dL Normal 3.5-5.0 [facility] Comment on above: Performed By: #### L [id number] ####Fur Comber: ARA WRIGHT ([id number])[facility])[address] [place] [address] ALP [Catalytic activity/Vol] 56 U/L Normal 38-126 [facility] Comment on above: Performed By: #### L AB17 ####Fur Comber: ARA WRIGHT ([id number])[facility])[address] [place] [address] ALT [Catalytic activity/Vol] 22 U/L Normal 0-49 [facility] Comment on above: Performed By: #### L AB17 ####Fur Comber: ARA WRIGHT ([id number])[facility] ([facility])[address] [place] [address] Anion gap [Moles/Vol] 7 mmol/L Normal 3-13 [facility] Comment on above: Performed By: #### L AB17 ####Fur Comber: ARA WRIGHT ([id number])[facility] ([facility])[address] [place] [address] AST [Catalytic activity/Vol] 33 U/L Normal 15-46 [facility] Comment on above: Performed By: #### L AB17 ####Fur Comber: ARA WRIGHT ([id number])[facility] ([facility])[address] [place] [address] Bilirubin [Mass/Vol] 0.5 mg/dL Normal 0.2-1.3 [facility] Comment on above: Performed By: #### L AB17 ####Fur Comber: ARA WRIGHT ([id number])[facility] ([facility])[address] [place] [address] Calcium [Mass/Vol] 9.6 mg/dL Normal 8.4-10.4 [facility] Comment on above: Performed By: #### L [id number] ####Fur Comber: ARA WRIGHT ([phone])[facility] ([facility])[address] [place] [address] [place] Chloride [Moles/Vol] 104 mmol/L Normal 98-107 [facility] Comment on above: Performed By: #### L AB17 ####Fur Comber: ARA WRIGHT ([id number])[facility] ([facility])[address] [place] [address] [place] CO2 [Moles/Vol] 22 mmol/L Normal 22-30 [facility] Comment on above: Performed By: #### L AB17 ####Fur Comber: ARA WRIGHT ([id number])[facility] ([facility])[address] [place] [address] Creatinine [Mass/Vol] 0.75 mg/dL Normal 0.66-1.25 [facility] Comment on above: Performed By: #### L AB17 ####Fur Comber: ARA WRIGHT ([id number])[facility] ([facility])[address] [place] [address] GLOMERULAR FILTRATION RATE ML/MIN/1.73 SQ M.PREDICTED >90.0 Normal >60.0 [facility] Comment on above: Result Comment: Calc ulation based on the Chronic Kidney Disease Epidemiology Collaboration (CKD-EPI) equation refit without adjustment for race Performed By: #### L [id number] ####Fur Comber: ARA WRIGHT ([id number])[facility] ([facility])[address] [place] [address] Glucose [Mass/Vol] 101 mg/dL High 70-100 [facility] Comment on above: Performed By: #### L AB17 ####Fur Comber: ARA WRIGHT ([id number])[facility] ([facility])[address] [place] [address] Potassium [Moles/Vol] 3.7 mmol/L Normal 3.5-5.1 [facility] Comment on above: Performed By: #### L AB17 ####Fur Comber: ARA WRIGHT ([id number])[facility] ([facility])[address] [place] [address] Protein [Mass/Vol] 7.1 g/dL Normal 6.3-8.2 [facility] Comment on above: Performed By: #### L AB17 ####Fur Comber: ARA WRIGHT ([id number])[facility] ([facility])[address] [place] [address] [place] Sodium [Moles/Vol] 133 mmol/L Low 135-145 [facility] Comment on above: Performed By: #### L AB17 ####Fur Comber: ARA WRIGHT ([id number])[facility] ([facility])[address] [place] [address] Urea nitrogen [Mass/Vol] 14 mg/dL Normal 9-[address] [facility] Comment on above: Performed By: #### L [id number] ####Fur Comber: AAR WRIGHT ([id number])[facility] ([address] Comprehensive metabolic 1998 panelon 01-21-2024 Albumin [Mass/Vol] 4.0 g/dL 3.5 - 5.0 g/dL [facility] ALP [Catalytic activity/Vol] 56 U/L 38 - 126 U/L [facility] ALT [Catalytic activity/Vol] 22 U/L 0 - 49 U/L [facility] Anion gap [Moles/Vol] 7 mmol/L 3 - 13 mmol/L [facility] AST [Catalytic activity/Vol] 33 U/L 15 - 46 U/L [facility] Bilirubin [Mass/Vol] 0.5 mg/dL 0.2 - 1 .3 mg/dL [facility] Calcium [Mass/Vol] 9.6 mg/dL 8.4 - 10. 4 mg/dL [facility] Chloride [Moles/Vol] 104 mmol/L 98 - 10 7 mmol/L [facility] CO2 [Moles/Vol] 22 mmol/L 22 - 30 mmol/L [facility] Creatinine [Mass/Vol] 0.75 mg/dL 0.66 - 1.25 mg/dL [facility] GFR/1.73 sq M.predicted MDRD (S/P/Bld) [Vol rate/Area] - PINF [facility] Comment on above: Calculation based on the Chronic Kidney Disease Epidemiology Collaboration (CKD-EPI) equation refit without adjustment for race Glucose [Mass/Vol] 101 mg/dL High 70 - 100 mg/dL [facility] Interpretation and review of laboratory results Abnormal [facility] Potassium [Moles/Vol] 3.7 mmol/L 3.5 - 5.1 mmol/L [facility] Protein [Mass/Vol] 7.1 g/dL 6.3 - 8.2 g/dL [facility] Sodium [Moles/Vol] 133 mmol/L Low 135 - 145 mmol/L [facility] Urea nitrogen [Mass/Vol] 14 mg/dL 9 - 20 mg/dL [facility] No Panel Informationon 01-20 No [...] filling and normal phasic and spontaneous flow. [employer] Details A chaudhry scale, color Doppler imaging and spectral Doppler analysis ultrasound was performed. During the study longitudinal views were obtained. The exam was performed with the patient in the supine position. Overall the study quality was adequate. Study was technically difficult due to: bedside exam. CV CPACS Nursing Noteon 01-21-2024 Nursing Note Normal [facility] Progress Noteon 01-21-2024 Progress Note Normal [facility] Progress Note Normal [facility] CARECOORDon 01-20-2024 [place]OORD Called pt to discuss SDOH resources; pt did not answer phone. Will reach out again; noted PT recommending snf. Normal [facility] CAR[place]OORD Normal [facility] CBC W Auto Differential pane l (Bld)Ordered By: Oksana Hurst on 01-20-2024 Basophils (Bld) [#/Vol] 0.0 10*3/uL 0.0 - 0.2 10*3/uL [facility] Basophils/100 WBC (Bld) 0.4 % 0.0 - 2.0 % [facility] Eosinophils (Bld) [#/Vol] 0.1 10*3/uL 0.0 - 0.5 10*3/uL [facility] Eosinophils/100 WBC (Bld) 1.7 % 0.0 - 6.0 % [facility] Erythrocyte distribution width (RBC) [Ratio] 13.6 % 11.5 - 15.0 % [facility] Hematocrit (Bld) [Volume fraction] 33.2 % Low 40.0 - 52.0 % [facility] Hemoglobin (Bld) [Mass/Vol] 11.7 g/dL Low 13.0 - 18.0 g/dL [facility] Immature granulocytes (Bld) [#/Vol] 0.0 10*3/uL NINF - 0.1 10*3/uL [facility] Immature granulocytes/100 WBC (Bld) 0.4 % 0.0 - 2.0 % [facility] Interpretation and review of laboratory results Abnormal [facility] IPF [address] [facility] Lymphocytes (Bld) [#/Vol] 1.9 10*3/uL 1.0 - 4.3 10*3/uL [facility] Lymphocytes/100 WBC (Bld) 35.7 % 15.0 - 45.0 % [facility] MCH (RBC) [Entitic mass] 32.0 pg 26.0 - 34.[address] [facility] MCHC (RBC) [Mass/Vol] 35.2 % 30.5 - 36.0 % [facility] MCV (RBC) [Entitic vol] 90.7 fL 77.0 - 99.[address] [facility] Monocytes (Bld) [#/Vol] 0.6 10*3/uL 0.0 - 0.9 10*3/uL [facility] Monocytes/100 WBC (Bld) 11.3 % 5.0 - 13.0 % [facility] Neutrophils (Bld) [#/Vol] 2.7 10*3/uL 1.8 - 7.5 10*3/uL [facility] Neutrophils/100 WBC (Bld) 50.5 % 38.0 - 82.0 % [facility] Nucleated RBC/100 WBC (Bld) [Ratio] 0.0 % [facility] Platelet mean volume (Bld) [Entitic vol] 10.1 fL 9.0 - 12.[address] [facility] Platelets (Bld) [#/Vol] 79 10*3/uL Low 140 - 440 10*3/uL [facility] RBC (Bld) [#/Vol] 3.66 10*6/uL Low 4.40 - 5.9 0 10*6/uL [facility] WBC (Bld) [#/Vol] 5.3 10*3/uL 3.6 - 10.7 10*3/uL [facility] CBC WITH AUTO DIFFERENTIALon 01-20-2024 Basophils (Bld) [#/Vol] 0.0 10*3/uL Normal 0.0-0.2 [facility] Comment on above: Performed By: #### L [id number] ####Fur Comber: ARA WRIGHT ([id number])[facility])[address] [place] [address] Basophils/100 WBC (Bld) 0.4 % Normal 0.0-2.0 [facility] Comment on above: Performed By: #### L [id number] ####Fur Comber: ARA WRIGHT ([id number])[facility])[address] [place] [address] Eosinophils (Bld) [#/Vol] 0.1 10*3/uL Normal 0.0-0.5 [facility] Comment on above: Performed By: #### L [id number] ####Fur Comber: ARA WRIGHT ([id number])[facility])[address] [place] [address] Eosinophils/100 WBC (Bld) 1.7 % Normal 0.0-6.0 [facility] Comment on above: Performed By: #### L [id number] ####Fur Comber: ARA WRIGHT ([phone])[facility])[address] [place] [address] Erythrocyte distribution width (RBC) [Ratio] 13.6 % Normal 11.5-15.0 [facility] Comment on above: Performed By: #### L [id number] ####Fur Comber: ARA WRIGHT ([id number])[facility])[address] [place] [address] Hematocrit (Bld) [Volume fraction] 33.2 % Low 40.0-52.[address] [facility] Comment on above: Performed By: #### L [id number] ####Fur Comber: ARA WRIGHT ([id number])[facility])[address] [place] [address] Hemoglobin (Bld) [Mass/Vol] 11.7 g/dL Low 13.0-18.0 [facility] Comment on above: Performed By: #### L [id number] ####Fur Comber: ARA WRIGHT ([id number])[facility])[address] [place] [address] IMMATURE GRANS % 0.4 % Normal 0.0-2.0 [facility] Comment on above: Performed By: #### L [id number] ####Fur Comber: ARA WRIGHT ([id number])[facility])[address] [place] [address] IMMATURE GRANS ABSOLUTE 0.0 10*3/uL Normal <0.[address] [facility] Comment on above: Performed By: #### L [id number] ####Fur Comber: ARA WRIGHT ([id number])[facility])[address] [place] [address] [place] IPF 4 Normal [facility] Comment on above: Performed By: #### L [id number] ####Fur Comber: ARA WRIGHT ([phone])[facility])[address] [place] [address] Lymphocytes (Bld) [#/Vol] 1.9 10*3/uL Normal 1.0-4.3 [facility] Comment on above: Performed By: #### L [id number] ####Fur Comber: ARA WRIGHT ([id number])[facility])[address] [place] [address] [place] Lymphocytes/100 WBC (Bld) 35.7 % Normal 15.0-45.[address] [facility] Comment on above: Performed By: #### L [id number] ####Fur Comber: ARA WRIGHT ([id number])[facility])[address] [place] [address] MCH (RBC) [Entitic mass] 32.0 pg Normal 26.0-34.0 [facility] Comment on above: Performed By: #### L [id number] ####Fur Comber: ARA WRIGHT ([id number])[facility])[address] [place] [address] MCHC 35.2 % Normal 30.5-36.0 [facility] Comment on above: Performed By: #### L [id number] ####Fur Comber: ARA WRIGHT ([id number])[facility])[address] [place] [address] MCV (RBC) [Entitic vol] 90.7 fL Normal 77.0-99.0 [facility] Comment on above: Performed By: #### L [id number] ####Fur Comber: ARA WRIGHT ([id number])[facility])[address] [place] [address] Monocytes (Bld) [#/Vol] 0.6 10*3/uL Normal 0.0-0.9 [facility] Comment on above: Performed By: #### L [id number] ####Fur Comber: ARA WRIGHT ([id number])[facility])[address] [place] [address] Monocytes/100 WBC (Bld) 11.3 % Normal 5.0-13.0 [facility] Comment on above: Performed By: #### L [id number] ####Fur Comber: ARA WRIGHT ([id number])[facility])[address] [place] [address] NEUTROPHILS ABSOLUTE 2.7 10*3/uL Normal 1.8-7.5 [facility] Comment on above: Performed By: #### L [id number] ####Fur Comber: ARA WRIGHT ([id number])[facility])[address] [place] [address] Neutrophils/100 WBC (Bld) 50.5 % Normal 38.0-82.0 [facility] Comment on above: Performed By: #### L [id number] ####Fur Comber: ARA WRIGHT ([id number])[facility])[address] [place] [address] NRBC 0.0 /100 WBCs Normal 0.0-2.0 [facility] Comment on above: Performed By: #### L [id number] ####Fur Comber: ARA WRIGHT ([id number])[facility])[address] [place] [address] Platelet mean volume (Bld) [Entitic vol] 10.1 fL Normal 9.0-12.7 [facility] Comment on above: Performed By: #### L [id number] ####Fur Comber: ARA WRIGHT ([id number])[facility])[address] [place] [address] Platelets (Bld) [#/Vol] 79 10*3/uL Low 140-440 [facility] Comment on above: Performed By: #### L [id number] ####Fur Comber: ARA WRIGHT ([id number])[facility])[address] [place] [address] RBC (Bld) [#/Vol] 3.66 10*6/uL Low 4.40-5.90 [facility] Comment on above: Performed By: #### L [id number] ####Fur Comber: ARA WRIGHT ([id number])[facility])[address] [place] [address] WBC (Bld) [#/Vol] 5.3 10*3/uL Normal 3.6-10.7 [facility] Comment on above: Performed By: #### L [id number] ####Fur Comber: ARA WRIGHT ([id number])[facility])[address] [place] [address] COMPREHENSIVE METABOLIC PANE Peter 01-20-2024 Albumin [Mass/Vol] 4.0 g/dL Normal 3.5-5.0 [facility] Comment on above: Performed By: #### L [id number], LAB17 ####Fur Comber: ARA WRIGHT ([id number])[facility] ([facility])[address] [place] [address] ALP [Catalytic activity/Vol] 58 U/L Normal 38-126 [facility] Comment on above: Performed By: #### L [id number], LAB17 ####Fur Comber: ARA WRIGHT ([id number])[facility] ([facility])[address] [place] [address] ALT [Catalytic activity/Vol] 21 U/L Normal 0-49 [facility] Comment on above: Performed By: #### L [id number], LAB17 ####Fur Comber: ARA WRIGHT ([id number])[facility] ([facility])[address] [place] [address] Anion gap [Moles/Vol] 9 mmol/L Normal 3-13 [facility] Comment on above: Performed By: #### L AB137, LAB17 ####Fur Comber: ARA WRIGHT ([id number])[facility] ([facility])[address] [place] [address] AST [Catalytic activity/Vol] 38 U/L Normal 15-46 [facility] Comment on above: Performed By: #### L AB137, LAB17 ####Fur Comber: ARA WRIGHT ([id number])[facility] ([facility])[address] [place] [address] Bilirubin [Mass/Vol] 0.5 mg/dL Normal 0.2-1.3 [facility] Comment on above: Performed By: #### L AB137, LAB17 ####Fur Comber: ARA WRIGHT ([id number])[facility])[address] [place] [address] Calcium [Mass/Vol] 9.2 mg/dL Normal 8.4-10.4 [facility] Comment on above: Performed By: #### L AB137, LAB17 ####Fur Comber: ARA WRIGHT ([id number])[facility] [place] [address] Chloride [Moles/Vol] 98 mmol/L Normal 98-107 [facility] Comment on above: Performed By: #### L AB137, LAB17 ####Fur Comber: ARA WRIGHT ([id number])[facility] [place] [address] CO2 [Moles/Vol] 21 mmol/L Low 22-30 [facility] Comment on above: Performed By: #### L AB137, LAB17 ####Fur Comber: ARA WRIGHT ([id number])[facility])[address] [place] [address] Creatinine [Mass/Vol] 0.74 mg/dL Normal 0.66-1.25 [facility] Comment on above: Performed By: #### L AB137, LAB17 ####Fur Comber: ARA WRIGHT ([id number])[facility] ([facility])[address] [place] [address] GLOMERULAR FILTRATION RATE ML/MIN/1.73 SQ M.PREDICTED >90.0 Normal >60.0 [facility] Comment on above: Result Comment: Calc ulation based on the Chronic Kidney Disease Epidemiology Collaboration (CKD-EPI) equation refit without adjustment for race Performed By: #### L AB137, LAB17 ####Fur Comber: ARA WRIGHT ([id number])[facility] [place] [address] Glucose [Mass/Vol] 100 mg/dL Normal 70-100 [facility] Comment on above: Performed By: #### L AB137, LAB17 ####Fur Comber: ARA WRIGHT ([id number])[facility])[address] [place] [address] Potassium [Moles/Vol] 3.7 mmol/L Normal 3.5-5.1 [facility] Comment on above: Performed By: #### L AB137, LAB17 ####Fur Comber: ARA [id number])[facility])[address] [place] [address] Protein [Mass/Vol] 7.0 g/dL Normal 6.3-8.2 [facility] Comment on above: Performed By: #### L AB137, LAB17 ####Fur Comber: ARA WRIGHT ([id number])[facility] ([facility])[address] [place] [address] Sodium [Moles/Vol] 129 mmol/L Low 135-145 [facility] Comment on above: Performed By: #### L AB137, LAB17 ####Fur Comber: ARA WRIGHT ([id number])[facility] ([facility])[address] [place] [address] Urea nitrogen [Mass/Vol] 8 mg/dL Low 9-20 [facility] Comment on above: Performed By: #### L AB137, LAB17 ####Fur Comber: ARA WRIGHT ([id number])[facility] ([facility])[address] [place] [address] Comprehensive metabolic 1998 panelon 01-20-2024 Albumin [Mass/Vol] 4.0 g/dL 3.5 - 5.0 g/dL [facility] ALP [Catalytic activity/Vol] 58 U/L 38 - 126 U/L [facility] ALT [Catalytic activity/Vol] 21 U/L 0 - 49 U/L [facility] Anion gap [Moles/Vol] 9 mmol/L 3 - 13 mmol/L [facility] AST [Catalytic activity/Vol] 38 U/L 15 - 46 U/L [facility] Bilirubin [Mass/Vol] 0.5 mg/dL 0.2 - 1 .3 mg/dL [facility] Calcium [Mass/Vol] 9.2 mg/dL 8.4 - 10. 4 mg/dL [facility] Chloride [Moles/Vol] 98 mmol/L 98 - 10 7 mmol/L [facility] CO2 [Moles/Vol] 21 mmol/L Low 22 - 30 mmol/L [facility] Creatinine [Mass/Vol] 0.74 mg/dL 0.66 - 1.25 mg/dL [facility] GFR/1.73 sq M.predicted MDRD (S/P/Bld) [Vol rate/Area] - PINF [facility] Comment on above: Calculation based on the Chronic Kidney Disease Epidemiology Collaboration (CKD-EPI) equation refit without adjustment for race Glucose [Mass/Vol] 100 mg/dL 70 - 100 mg/dL [facility] Interpretation and review of laboratory results Abnormal [facility] Potassium [Moles/Vol] 3.7 mmol/L 3.5 - 5.1 mmol/L [facility] Protein [Mass/Vol] 7.0 g/dL 6.3 - 8.2 g/dL [facility] Sodium [Moles/Vol] 129 mmol/L Low 135 - 145 mmol/L [facility] Urea nitrogen [Mass/Vol] 8 mg/dL Low 9 - 20 mg/dL [facility] ECG 12-LEADon 01-20-2024 ECG 12-LEAD IMPRESSION: Sinus rhythm RBBB and LAFB Electronically Signed On 01-20-2024 12:33:18 EDT by Júnior Salter Normal [facility] FREE T4on 01-20-2024 Free T4 [Mass/Vol] 1.07 ng/dL Normal 0.78-2.19 [facility] Comment on above: Performed By: #### L [id number] ####Fur Comber: ARA WRIGHT ([id number])[address] Free T3 [Mass/Vol]on Interpretation and review of laboratory results Normal [facility] Free T4 [Mass/Vol]on Free T4 Dialysis [Mass/Vol] 1.07 ng/dL 0.78 - 2.19 ng/dL [facility] Interpretation and review of laboratory results Normal [facility] Laboratory - Chemistry and C hemistry - challengeon 01-20-2024 Free T3 [Mass/Vol] 3.48 pg/mL 2.77 - 5. 27 pg/mL [facility] No Panel InformationOrdered By: Júnior Salter on 01-20-2024 P [place] 47 degrees [facility] Work Phone: LA Interval 162 ms [employer] Work Phone: QRS [place] -50 degrees [employer] Work Phone: QRSD Interval 138 ms [employer] Work Phone: QT Interval 394 ms [facility] Work Phone: QTC Interval 471 ms [employer] Work Phone: T Wave [place] 7 degrees [employer] Work Phone: [employer] Work Phone: No Panel Informationon 01-19 Sinus rhythm RBBB and LAFB Electronically Signed On 01-20-2024 12:33:18 EDT by Júnior Dockery MD - 01/20/2024 IMPRESSION: Sinus rhythm RBBB and LAFB Electronically Signed On 01-20-2024 12:33:18 EDT by Júnior Salter [facility] Progress Noteon 01-20-2024 Progress Note Normal [facility] Progress Note Normal [facility] Progress Note Normal [facility] T3 FREEon 01-20-2024 Free T3 [Mass/Vol] 3.48 pg/mL Normal 2.77-5.27 [facility] Comment on above: Performed By: #### L AB137, LAB17 ####Fur Comber: ARA WRIGHT ([id number])[address] Vital signsOrdered By: Júnior Salter on 01-20-2024 Heart rate 86 /min bpm [employer] Work Phone: CARECOORDon 01-19-2024 CARECOORD Normal [facility] CBC W Auto Differential pane l (Bld)on 01-19-2024 Basophils (Bld) [#/Vol] 0.0 10*3/uL 0.0 - 0.2 10*3/uL [facility] Basophils/100 WBC (Bld) 0.4 % 0.0 - 2.0 % [facility] Eosinophils (Bld) [#/Vol] 0.1 10*3/uL 0.0 - 0.5 10*3/uL [facility] Eosinophils/100 WBC (Bld) 1.4 % 0.0 - 6.0 % [facility] Erythrocyte distribution width (RBC) [Ratio] 13.4 % 11.5 - 15.0 % [facility] Hematocrit (Bld) [Volume fraction] 33.2 % Low 40.0 - 52.0 % [facility] Hemoglobin (Bld) [Mass/Vol] 11.5 g/dL Low 13.0 - 18.0 g/dL [facility] Immature granulocytes (Bld) [#/Vol] 0.0 10*3/uL NINF - 0.1 10*3/uL [facility] Immature granulocytes/100 WBC (Bld) 0.2 % 0.0 - 2.0 % [facility] Interpretation and review of laboratory results Abnormal [facility] IPF [address] [facility] Lymphocytes (Bld) [#/Vol] 1.8 10*3/uL 1.0 - 4.3 10*3/uL [facility] Lymphocytes/100 WBC (Bld) 31.7 % 15.0 - 45.0 % [facility] MCH (RBC) [Entitic mass] 31.8 pg 26.0 - 34.[address] [facility] MCHC (RBC) [Mass/Vol] 34.6 % 30.5 - 36.0 % [facility] MCV (RBC) [Entitic vol] 91.7 fL 77.0 - 99.0 fL [facility] Monocytes (Bld) [#/Vol] 0.5 10*3/uL 0.0 - 0.9 10*3/uL [facility] Monocytes/100 WBC (Bld) 8.6 % 5.0 - 13.0 % [facility] Neutrophils (Bld) [#/Vol] 3.2 10*3/uL 1.8 - 7.5 10*3/uL [facility] Neutrophils/100 WBC (Bld) 57.7 % 38.0 - 82.0 % [facility] Nucleated RBC/100 WBC (Bld) [Ratio] 0.0 % [facility] Platelet mean volume (Bld) [Entitic vol] 10.0 fL 9.0 - 12.7 fL [facility] Platelets (Bld) [#/Vol] 70 10*3/uL Low 140 - 440 10*3/uL [facility] RBC (Bld) [#/Vol] 3.62 10*6/uL Low 4.40 - 5.9 0 10*6/uL [facility] WBC (Bld) [#/Vol] 5.6 10*3/uL 3.6 - 10.7 10*3/uL [facility] CBC WITH AUTO DIFFERENTIALon 01-19-2024 Basophils (Bld) [#/Vol] 0.0 10*3/uL Normal 0.0-0.2 [facility] Comment on above: Performed By: #### L [id number] ####Fur Comber: ARA WRIGHT ([phone])[facility])[address] [place] [address] Basophils/100 WBC (Bld) 0.4 % Normal 0.0-2.0 [facility] Comment on above: Performed By: #### L [id number] ####Fur Comber: ARA WRIGHT ([id number])[facility])[address] [place] [address] Eosinophils (Bld) [#/Vol] 0.1 10*3/uL Normal 0.0-0.5 [facility] Comment on above: Performed By: #### L [id number] ####Fur Comber: ARA WRIGHT ([id number])[facility] ([facility])[address] [place] [address] Eosinophils/100 WBC (Bld) 1.4 % Normal 0.0-6.0 [facility] Comment on above: Performed By: #### L [id number] ####Fur Comber: ARA WRIGHT ([id number])[facility])[address] [place] [address] Erythrocyte distribution width (RBC) [Ratio] 13.4 % Normal 11.5-15.0 [facility] Comment on above: Performed By: #### L [id number] ####Fur Comber: ARA WRIGHT ([id number])[facility])[address] [place] [address] Hematocrit (Bld) [Volume fraction] 33.2 % Low 40.0-52.0 [facility] Comment on above: Performed By: #### L [id number] ####Fur Comber: ARA WRIGHT ([id number])[facility])[address] [place] [address] Hemoglobin (Bld) [Mass/Vol] 11.5 g/dL Low 13.0-18.[address] [facility] Comment on above: Performed By: #### L [id number] ####Fur Comber: ARA WRIGHT ([id number])[facility])[address] [place] [address] IMMATURE GRANS % 0.2 % Normal 0.0-2.0 [facility] Comment on above: Performed By: #### L [id number] ####Fur Comber: ARA WRIGHT ([id number])[facility])[address] [place] [address] IMMATURE GRANS ABSOLUTE 0.0 10*3/uL Normal <0.[address] [facility] Comment on above: Performed By: #### L [id number] ####Fur Comber: ARA WRIGHT ([id number])[facility])[address] [place] [address] [place] IPF 3 Normal [facility] Comment on above: Performed By: #### L [id number] ####Fur Comber: ARA WRIGHT ([id number])[facility])[address] [place] [address] Lymphocytes (Bld) [#/Vol] 1.8 10*3/uL Normal 1.0-4.3 [facility] Comment on above: Performed By: #### L [id number] ####Fur Comber: ARA WRIGHT ([id number])[facility])[address] [place] [address] Lymphocytes/100 WBC (Bld) 31.7 % Normal 15.0-45.0 [facility] Comment on above: Performed By: #### L [id number] ####Fur Comber: ARA WRIGHT ([id number])[facility])[address] [place] [address] MCH (RBC) [Entitic mass] 31.8 pg Normal 26.0-34.0 [facility] Comment on above: Performed By: #### L [id number] ####Fur Comber: ARA WRIGHT ([id number])[facility])[address] [place] [address] MCHC 34.6 % Normal 30.5-36.0 [facility] Comment on above: Performed By: #### L [id number] ####Fur Comber: ARA WRIGHT ([phone])[facility])[address] [place] [address] MCV (RBC) [Entitic vol] 91.7 fL Normal 77.0-99.0 [facility] Comment on above: Performed By: #### L [id number] ####Fur Comber: ARA WRIGTH ([id number])[facility])[address] [place] [address] Monocytes (Bld) [#/Vol] 0.5 10*3/uL Normal 0.0-0.9 [facility] Comment on above: Performed By: #### L [id number] ####Fur Comber: ARA WRIGHT ([id number])[facility])[address] [place] [address] Monocytes/100 WBC (Bld) 8.6 % Normal 5.0-13.0 [facility] Comment on above: Performed By: #### L [id number] ####Fur Comber: ARA WRIGHT ([id number])[facility])[address] [place] [address] NEUTROPHILS ABSOLUTE 3.2 10*3/uL Normal 1.8-7.5 [facility] Comment on above: Performed By: #### L [id number] ####Fur Comber: ARA WRIGHT ([id number])[facility])[address] [place] [address] Neutrophils/100 WBC (Bld) 57.7 % Normal 38.0-82.0 [facility] Comment on above: Performed By: #### L [id number] ####Fur Comber: ARA WRIGHT ([id number])[facility])[address] [place] [address] NRBC 0.0 /100 WBCs Normal 0.0-2.0 [facility] Comment on above: Performed By: #### L [id number] ####Fur Comber: ARA WRIGHT ([id number])[facility] ([facility])[address] [place] [address] Platelet mean volume (Bld) [Entitic vol] 10.0 fL Normal 9.0-12.7 [facility] Comment on above: Performed By: #### L [id number] ####Fur Comber: ARA WRIGHT ([id number])[facility] ([facility])[address] [place] [address] Platelets (Bld) [#/Vol] 70 10*3/uL Low 140-440 [facility] Comment on above: Performed By: #### L [id number] ####Fur Comber: ARA WRIGHT ([id number])[facility] ([facility])[address] [place] [address] RBC (Bld) [#/Vol] 3.62 10*6/uL Low 4.40-5.90 [facility] Comment on above: Performed By: #### L [id number] ####Fur Comber: ARA WRIGHT ([id number])[facility])[address] [place] [address] WBC (Bld) [#/Vol] 5.6 10*3/uL Normal 3.6-10.7 [facility] Comment on above: Performed By: #### L [id number] ####Fur Comber: ARA WRIGHT ([id number])[facility])[address] [place] [address] COMPREHENSIVE METABOLIC PANE Peter 01-19-2024 Albumin [Mass/Vol] 3.9 g/dL Normal 3.5-5.0 [facility] Comment on above: Performed By: #### L [id number], [id number], [id number] ####Fur Comber: ARA WRIGHT ([phone])[facility])[address] [place] [address] [place] ALP [Catalytic activity/Vol] 56 U/L Normal 38-126 [facility] Comment on above: Performed By: #### L [id number], [id number], [id number] ####Fur Comber: ARA WRIGHT ([id number])[facility] [place] [address] [place] ALT [Catalytic activity/Vol] 16 U/L Normal 0-49 [facility] Comment on above: Performed By: #### L [id number], [id number], [id number] ####Fur Comber: ARA WRIGHT ([id number])[facility] [place] [address] Anion gap [Moles/Vol] 9 mmol/L Normal 3-13 [facility] Comment on above: Performed By: #### Popeye AB17, [id number], [id number] ####Fur Comber: ARA WRIGHT ([id number])[facility] [place] [address] AST [Catalytic activity/Vol] 27 U/L Normal 15-46 [facility] Comment on above: Performed By: #### Popeye WOOD, [id number], [id number] ####Fur Comber: ARA WRIGHT ([id number])[facility] ([facility])[address] [place] [address] [place] Bilirubin [Mass/Vol] 0.5 mg/dL Normal 0.2-1.3 [facility] Comment on above: Performed By: #### Popeye AB17, [id number], [id number] ####Fur Comber: ARA WRIGHT ([phone])[facility] ([facility])[address] [place] [address] [place] Calcium [Mass/Vol] 9.2 mg/dL Normal 8.4-10.4 [facility] Comment on above: Performed By: #### L AB17, [id number], [id number] ####Fur Comber: ARA WRIGHT ([phone])[facility] [place] [address] [place] Chloride [Moles/Vol] 100 mmol/L Normal 98-107 [facility] Comment on above: Performed By: #### L AB17, [id number], [id number] ####Fur Comber: ARA WRIGHT ([phone])[facility])[address] [place] [address] CO2 [Moles/Vol] 20 mmol/L Low 22-30 [facility] Comment on above: Performed By: #### L AB17, [id number], [id number] ####Fur Comber: ARA WRIGHT ([phone])[facility] ([facility])[address] [place] [address] Creatinine [Mass/Vol] 0.72 mg/dL Normal 0.66-1.25 [facility] Comment on above: Performed By: #### Popeye AB17, [id number], [id number] ####Fur Comber: ARA WRIGHT ([phone])[facility])[address] [place] [address] GLOMERULAR FILTRATION RATE ML/MIN/1.73 SQ M.PREDICTED >90.0 Normal >60.0 [facility] Comment on above: Result Comment: Calc ulation based on the Chronic Kidney Disease Epidemiology Collaboration (CKD-EPI) equation refit without adjustment for race Performed By: #### Popeye AB17, [id number], [id number] ####Fur Comber: ARA WRIGHT ([phone])[facility] ([facility])[address] [place] [address] Glucose [Mass/Vol] 126 mg/dL High 70-100 [facility] Comment on above: Performed By: #### L AB17, [id number], [id number] ####Fur Comber: ARA WRIGHT ([id number])[facility])[address] [place] [address] Potassium [Moles/Vol] 3.7 mmol/L Normal 3.5-5.1 [facility] Comment on above: Performed By: #### L AB17, [id number], [id number] ####Fur Comber: ARA WRIGHT ([phone])[facility])[address] [place] [address] Protein [Mass/Vol] 6.9 g/dL Normal 6.3-8.2 [facility] Comment on above: Performed By: #### L AB17, [id number], [id number] ####Fur Comber: ARA WRIGHT ([phone])[facility] ([facility])[address] [place] [address] Sodium [Moles/Vol] 129 mmol/L Low 135-145 [facility] Comment on above: Performed By: #### L AB17, [id number], [id number] ####Fur Comber: ARA WRIGHT ([phone])[facility] ([facility])[address] [place] [address] Urea nitrogen [Mass/Vol] 14 mg/dL Normal 9-20 [facility] Comment on above: Performed By: #### L AB17, [id number], [id number] ####Fur Comber: ARA WRIGHT ([phone])[facility] ([facility])[address] [place] [address] Comprehensive metabolic 1998 panelon 01-19-2024 Albumin [Mass/Vol] 3.9 g/dL 3.5 - 5.0 g/dL [facility] ALP [Catalytic activity/Vol] 56 U/L 38 - 126 U/L [facility] ALT [Catalytic activity/Vol] 16 U/L 0 - 49 U/L [facility] Anion gap [Moles/Vol] 9 mmol/L 3 - 13 mmol/L [facility] AST [Catalytic activity/Vol] 27 U/L 15 - 46 U/L [facility] Bilirubin [Mass/Vol] 0.5 mg/dL 0.2 - 1 .3 mg/dL [facility] Calcium [Mass/Vol] 9.2 mg/dL 8.4 - 10. 4 mg/dL [facility] Chloride [Moles/Vol] 100 mmol/L 98 - 10 7 mmol/L [facility] CO2 [Moles/Vol] 20 mmol/L Low 22 - 30 mmol/L [facility] Creatinine [Mass/Vol] 0.72 mg/dL 0.66 - 1.25 mg/dL [facility] GFR/1.73 sq M.predicted MDRD (S/P/Bld) [Vol rate/Area] - PINF [facility] Comment on above: Calculation based on the Chronic Kidney Disease Epidemiology Collaboration (CKD-EPI) equation refit without adjustment for race Glucose [Mass/Vol] 126 mg/dL High 70 - 100 mg/dL [facility] Interpretation and review of laboratory results Abnormal [facility] Potassium [Moles/Vol] 3.7 mmol/L 3.5 - 5.1 mmol/L [facility] Protein [Mass/Vol] 6.9 g/dL 6.3 - 8.2 g/dL [facility] Sodium [Moles/Vol] 129 mmol/L Low 135 - 145 mmol/L [facility] Urea nitrogen [Mass/Vol] 14 mg/dL 9 - 20 mg/dL [facility] IDNon 01-19-2024 IDN Normal [facility] Laboratory - Chemistry and C hemistry - challengeon 01-19-2024 TSH Qn 4.844 m[IU]/L High [facility] Magnesium [Mass/Vol] 1.6 mg/dL 1.6 - 2 .3 mg/dL [facility] MAGNESIUMon 01-19-2024 Magnesium [Mass/Vol] 1.6 mg/dL Normal 1.6-2.3 [facility] Comment on above: Performed By: #### L AB17, [id number], [id number] ####Fur Comber: ARA WRIGHT ([phone])[facility])[address] [place] [address] Magnesium [Mass/Vol]on 01-18 Interpretation and review of laboratory results Normal [facility] Progress Noteon 01-19-2024 Progress Note Normal [facility] Progress Note Normal [facility] Progress Note Normal [facility] Progress Note Normal [facility] THYROID STIMULATING HORMONEo n 01-19-2024 THYROID STIMULATING HORMONE 4.844 uIU/mL High 0.465-4.680 [facility] Comment on above: Performed By: #### L AB17, [id number], [id number] ####Fur Comber: ARA WRIGHT ([id number])[facility] ([facility])[address] [place] [address] [place] TSH Qnon 01-19-2024 Interpretation and review of laboratory results Abnormal [facility] CARECOORDon 01-18-2024 CARECOORD Normal [facility] CBC W Auto Differential pane l (Bld)Ordered By: Anna Hensley on 01-18-2024 Basophils (Bld) [#/Vol] 0.0 10*3/uL 0.0 - 0.2 10*3/uL [facility] Basophils/100 WBC (Bld) 0.4 % 0.0 - 2.0 % [facility] Eosinophils (Bld) [#/Vol] 0.1 10*3/uL 0.0 - 0.5 10*3/uL [facility] Eosinophils/100 WBC (Bld) 1.9 % 0.0 - 6.0 % [facility] Erythrocyte distribution width (RBC) [Ratio] 13.5 % 11.5 - 15.0 % [facility] Hematocrit (Bld) [Volume fraction] 34.3 % Low 40.0 - 52.0 % [facility] Hemoglobin (Bld) [Mass/Vol] 12.1 g/dL Low 13.0 - 18.0 g/dL [facility] Immature granulocytes (Bld) [#/Vol] 0.0 10*3/uL NINF - 0.1 10*3/uL [facility] Immature granulocytes/100 WBC (Bld) 0.6 % 0.0 - 2.0 % [facility] Interpretation and review of laboratory results Abnormal [facility] IPF [address] [facility] Lymphocytes (Bld) [#/Vol] 2.0 10*3/uL 1.0 - 4.3 10*3/uL [facility] Lymphocytes/100 WBC (Bld) 37.8 % 15.0 - 45.0 % [facility] MCH (RBC) [Entitic mass] 31.8 pg 26.0 - 34.[address] [facility] MCHC (RBC) [Mass/Vol] 35.3 % 30.5 - 36.0 % [facility] MCV (RBC) [Entitic vol] 90.0 fL 77.0 - 99.[address] [facility] Monocytes (Bld) [#/Vol] 0.4 10*3/uL 0.0 - 0.9 10*3/uL [facility] Monocytes/100 WBC (Bld) 7.9 % 5.0 - 13.0 % [facility] Neutrophils (Bld) [#/Vol] 2.7 10*3/uL 1.8 - 7.5 10*3/uL [facility] Neutrophils/100 WBC (Bld) 51.4 % 38.0 - 82.0 % [facility] Nucleated RBC/100 WBC (Bld) [Ratio] 0.0 % [facility] Platelet mean volume (Bld) [Entitic vol] 10.2 fL 9.0 - 12.[address] [facility] Platelets (Bld) [#/Vol] 62 10*3/uL Low 140 - 440 10*3/uL [facility] RBC (Bld) [#/Vol] 3.81 10*6/uL Low 4.40 - 5.9 0 10*6/uL [facility] WBC (Bld) [#/Vol] 5.3 10*3/uL 3.6 - 10.7 10*3/uL [facility] CBC WITH AUTO DIFFERENTIALon 01-18-2024 Basophils (Bld) [#/Vol] 0.0 10*3/uL Normal 0.0-0.2 [facility] Comment on above: Performed By: #### L [id number] ####Fur Comber: ARA WRIGHT ([phone])[address] Basophils/100 WBC (Bld) 0.4 % Normal 0.0-2.0 [facility] Comment on above: Performed By: #### L [id number] ####Fur Comber: ARA WRIGHT ([id number])[facility])[address] [place] [address] Eosinophils (Bld) [#/Vol] 0.1 10*3/uL Normal 0.0-0.5 [facility] Comment on above: Performed By: #### L [id number] ####Fur Comber: ARA WRIGHT ([id number])[facility])[address] [place] [address] Eosinophils/100 WBC (Bld) 1.9 % Normal 0.0-6.0 [facility] Comment on above: Performed By: #### L [id number] ####Fur Comber: ARA WRIGHT ([phone])[facility])[address] [place] [address] Erythrocyte distribution width (RBC) [Ratio] 13.5 % Normal 11.5-15.[address] [facility] Comment on above: Performed By: #### L [id number] ####Fur Comber: ARA WRIGHT ([phone])[facility])[address] [place] [address] Hematocrit (Bld) [Volume fraction] 34.3 % Low 40.0-52.[address] [facility] Comment on above: Performed By: #### L [id number] ####Fur Comber: ARA WRIGHT ([id number])[facility])[address] [place] [address] Hemoglobin (Bld) [Mass/Vol] 12.1 g/dL Low 13.0-18.[address] [facility] Comment on above: Performed By: #### L [id number] ####Fur Comber: ARA RWIGHT ([id number])[facility])[address] [place] [address] IMMATURE GRANS % 0.6 % Normal 0.0-2.[address] [facility] Comment on above: Performed By: #### L [id number] ####Fur Comber: ARA WRIGHT ([id number])[facility])[address] [place] [address] IMMATURE GRANS ABSOLUTE 0.0 10*3/uL Normal <0.[address] [facility] Comment on above: Performed By: #### L [id number] ####Fur Comber: ARA WRIGHT ([phone])[facility])[address] [place] [address] IPF 4 Normal [facility] Comment on above: Performed By: #### L [id number] ####Fur Comber: ARA WRIGHT ([phone])[facility])[address] [place] [address] Lymphocytes (Bld) [#/Vol] 2.0 10*3/uL Normal 1.0-4.3 [facility] Comment on above: Performed By: #### L [id number] ####Fur Comber: ARA WRIGHT ([id number])[facility])[address] [place] [address] Lymphocytes/100 WBC (Bld) 37.8 % Normal 15.0-45.0 [facility] Comment on above: Performed By: #### L [id number] ####Fur Comber: ARA WRIGHT ([phone])[facility])[address] [place] [address] MCH (RBC) [Entitic mass] 31.8 pg Normal 26.0-34.0 [facility] Comment on above: Performed By: #### L [id number] ####Fur Comber: ARA WRIGHT ([phone])[facility])[address] [place] [address] MCHC 35.3 % Normal 30.5-36.0 [facility] Comment on above: Performed By: #### L [id number] ####Fur Comber: ARA WRIGHT ([id number])[facility])[address] [place] [address] MCV (RBC) [Entitic vol] 90.0 fL Normal 77.0-99.0 [facility] Comment on above: Performed By: #### L [id number] ####Fur Comber: ARA WRIGHT ([id number])[facility])[address] [place] [address] Monocytes (Bld) [#/Vol] 0.4 10*3/uL Normal 0.0-0.9 [facility] Comment on above: Performed By: #### L [id number] ####Fur Comber: ARA WRIGHT ([phone])[facility])[address] [place] [address] Monocytes/100 WBC (Bld) 7.9 % Normal 5.0-13.0 [facility] Comment on above: Performed By: #### L [id number] ####Fur Comber: ARA WRIGHT ([id number])[facility] ([facility])[address] [place] [address] NEUTROPHILS ABSOLUTE 2.7 10*3/uL Normal 1.8-7.5 [facility] Comment on above: Performed By: #### L [id number] ####Fur Comber: ARA WRIGHT ([id number])[facility] ([facility])[address] [place] [address] Neutrophils/100 WBC (Bld) 51.4 % Normal 38.0-82.0 [facility] Comment on above: Performed By: #### L [id number] ####Fur Comber: ARA WRIGHT ([id number])[facility])[address] [place] [address] NRBC 0.0 /100 WBCs Normal 0.0-2.0 [facility] Comment on above: Performed By: #### L [id number] ####Fur Comber: ARA WRIGHT ([phone])[facility] ([facility])[address] [place] [address] Platelet mean volume (Bld) [Entitic vol] 10.2 fL Normal 9.0-12.7 [facility] Comment on above: Performed By: #### L [id number] ####Fur Comber: ARA WRIGHT ([phone])[facility] ([facility])[address] [place] [address] Platelets (Bld) [#/Vol] 62 10*3/uL Low 140-440 [facility] Comment on above: Performed By: #### L [id number] ####Fur Comber: ARA WRIGHT ([id number])[facility] ([facility])[address] [place] [address] [place] RBC (Bld) [#/Vol] 3.81 10*6/uL Low 4.40-5.90 [facility] Comment on above: Performed By: #### L [id number] ####Fur Comber: ARA WRIGHT ([phone])[facility] ([facility])[address] [place] [address] WBC (Bld) [#/Vol] 5.3 10*3/uL Normal 3.6-10.7 [facility] Comment on above: Performed By: #### L [id number] ####Fur Comber: ARA WRIGHT ([id number])[facility] ([facility])[address] [place] [address] COMPREHENSIVE METABOLIC PANE Peter 01-18-2024 Albumin [Mass/Vol] 3.9 g/dL Normal 3.5-5.0 [facility] Comment on above: Performed By: #### L AB17, [id number] ####Fur Comber: ARA WRIGHT ([phone])[facility] ([facility])[address] [place] [address] ALP [Catalytic activity/Vol] 59 U/L Normal 38-126 [facility] Comment on above: Performed By: #### L AB17, [id number] ####Fur Comber: ARA WRIGHT ([phone])[facility] ([facility])[address] [place] [address] ALT [Catalytic activity/Vol] 16 U/L Normal 0-49 [facility] Comment on above: Performed By: #### L AB17, [id number] ####Fur Comber: ARA WRIGHT ([id number])[facility] ([facility])[address] [place] [address] Anion gap [Moles/Vol] 9 mmol/L Normal 3-13 [facility] Comment on above: Performed By: #### L AB17, [id number] ####Fur Comber: ARA WRIGHT ([phone])[facility] ([facility])[address] [place] [address] AST [Catalytic activity/Vol] 26 U/L Normal 15-46 [facility] Comment on above: Performed By: #### L AB17, [id number] ####Fur Comber: ARA WRIGHT ([id number])[facility] ([facility])[address] [place] [address] Bilirubin [Mass/Vol] 0.7 mg/dL Normal 0.2-1.3 [facility] Comment on above: Performed By: #### L AB17, [id number] ####Fur Comber: ARA WRIGHT ([id number])[facility] [place] [address] Calcium [Mass/Vol] 9.0 mg/dL Normal 8.4-10.4 [facility] Comment on above: Performed By: #### L AB17, [id number] ####Fur Comber: ARA WRIGHT ([phone])[facility] [place] [address] Chloride [Moles/Vol] 101 mmol/L Normal 98-107 [facility] Comment on above: Performed By: #### L AB17, [id number] ####Fur Comber: ARA WRIGHT ([id number])[facility] ([facility])[address] [place] [address] CO2 [Moles/Vol] 22 mmol/L Normal 22-30 [facility] Comment on above: Performed By: #### L AB17, [id number] ####Fur Comber: ARA WRIGHT ([phone])[facility] ([facility])[address] [place] [address] Creatinine [Mass/Vol] 0.70 mg/dL Normal 0.66-1.25 [facility] Comment on above: Performed By: #### L AB17, [id number] ####Fur Comber: ARA WRIGHT ([phone])[facility])[address] [place] [address] GLOMERULAR FILTRATION RATE ML/MIN/1.73 SQ M.PREDICTED >90.0 Normal >60.0 [facility] Comment on above: Result Comment: Calc ulation based on the Chronic Kidney Disease Epidemiology Collaboration (CKD-EPI) equation refit without adjustment for race Performed By: #### L AB17, [id number] ####Fur Comber: ARA WRIGHT ([id number])[facility] ([facility])[address] [place] [address] [place] Glucose [Mass/Vol] 123 mg/dL High 70-100 [facility] Comment on above: Performed By: #### L AB17, [id number] ####Fur Comber: ARA WRIGHT ([phone])[facility])[address] [place] [address] Potassium [Moles/Vol] 3.6 mmol/L Normal 3.5-5.1 [facility] Comment on above: Performed By: #### L AB17, [id number] ####Fur Comber: ARA WRIGHT ([id number])[facility] ([facility])[address] [place] [address] Protein [Mass/Vol] 6.9 g/dL Normal 6.3-8.2 [facility] Comment on above: Performed By: #### L AB17, [id number] ####Fur Comber: ARA WRIGHT ([id number])[facility] ([facility])[address] [place] [address] Sodium [Moles/Vol] 132 mmol/L Low 135-145 [facility] Comment on above: Performed By: #### L AB17, [id number] ####Fur Comber: ARA WRIGHT ([id number])[facility] ([facility])[address] [place] [address] Urea nitrogen [Mass/Vol] 14 mg/dL Normal 9-20 [facility] Comment on above: Performed By: #### L AB17, [id number] ####Fur Comber: ARA WRIGHT ([phone])[facility])[address] [place] [address] Comprehensive metabolic 1998 panelon 01-18-2024 Albumin [Mass/Vol] 3.9 g/dL 3.5 - 5.0 g/dL [facility] ALP [Catalytic activity/Vol] 59 U/L 38 - 126 U/L [facility] ALT [Catalytic activity/Vol] 16 U/L 0 - 49 U/L [facility] Anion gap [Moles/Vol] 9 mmol/L 3 - 13 mmol/L [facility] AST [Catalytic activity/Vol] 26 U/L 15 - 46 U/L [facility] Bilirubin [Mass/Vol] 0.7 mg/dL 0.2 - 1 .3 mg/dL [facility] Calcium [Mass/Vol] 9.0 mg/dL 8.4 - 10. 4 mg/dL [facility] Chloride [Moles/Vol] 101 mmol/L 98 - 10 7 mmol/L [facility] CO2 [Moles/Vol] 22 mmol/L 22 - 30 mmol/L [facility] Creatinine [Mass/Vol] 0.70 mg/dL 0.66 - 1.25 mg/dL [facility] GFR/1.73 sq M.predicted MDRD (S/P/Bld) [Vol rate/Area] - PINF [facility] Comment on above: Calculation based on the Chronic Kidney Disease Epidemiology Collaboration (CKD-EPI) equation refit without adjustment for race Glucose [Mass/Vol] 123 mg/dL High 70 - 100 mg/dL [facility] Interpretation and review of laboratory results Abnormal [facility] Potassium [Moles/Vol] 3.6 mmol/L 3.5 - 5.1 mmol/L [facility] Protein [Mass/Vol] 6.9 g/dL 6.3 - 8.2 g/dL [facility] Sodium [Moles/Vol] 132 mmol/L Low 135 - 145 mmol/L [facility] Urea nitrogen [Mass/Vol] 14 mg/dL 9 - 20 mg/dL [facility] - Chemistry and C hemistry - challengeon 01-18-2024 Magnesium [Mass/Vol] 1.8 mg/dL 1.6 - 2 .3 mg/dL [facility] MAGNESIUMon 01-18-2024 Magnesium [Mass/Vol] 1.8 mg/dL Normal 1.6-2.3 [facility] Comment on above: Performed By: #### L AB17, [id number] ####Fur Comber: ARA WRIGHT ([id number])[facility] ([address] Magnesium [Mass/Vol]on 01-17 Interpretation and review of laboratory results Normal [facility] Progress Noteon 01-18-2024 Progress Note Normal [facility] Progress Note Normal [facility] Progress Note Normal [facility] CBC W Auto Differential pane l (Bld)Ordered By: Denita Chappell on 01-17-2024 Basophils (Bld) [#/Vol] 0.0 10*3/uL 0.0 - 0.2 10*3/uL [facility] Basophils/100 WBC (Bld) 0.5 % 0.0 - 2.0 % [facility] Eosinophils (Bld) [#/Vol] 0.0 10*3/uL 0.0 - 0.5 10*3/uL [facility] Eosinophils/100 WBC (Bld) 1.0 % 0.0 - 6.0 % [facility] Erythrocyte distribution width (RBC) [Ratio] 13.2 % 11.5 - 15.0 % [facility] Hematocrit (Bld) [Volume fraction] 33.3 % Low 40.0 - 52.0 % [facility] Hemoglobin (Bld) [Mass/Vol] 11.8 g/dL Low 13.0 - 18.0 g/dL [facility] Immature granulocytes (Bld) [#/Vol] 0.0 10*3/uL NINF - 0.1 10*3/uL [facility] Immature granulocytes/100 WBC (Bld) 0.2 % 0.0 - 2.0 % [facility] Interpretation and review of laboratory results Abnormal [facility] IPF 3 [facility] Lymphocytes (Bld) [#/Vol] 1.6 10*3/uL 1.0 - 4.3 10*3/uL [facility] Lymphocytes/100 WBC (Bld) 39.1 % 15.0 - 45.0 % [facility] MCH (RBC) [Entitic mass] 32.0 pg 26.0 - 34.[address] [facility] MCHC (RBC) [Mass/Vol] 35.4 % 30.5 - 36.0 % [facility] MCV (RBC) [Entitic vol] 90.2 fL 77.0 - 99.[address] [facility] Monocytes (Bld) [#/Vol] 0.3 10*3/uL 0.0 - 0.9 10*3/uL [facility] Monocytes/100 WBC (Bld) 7.5 % 5.0 - 13.0 % [facility] Neutrophils (Bld) [#/Vol] 2.1 10*3/uL 1.8 - 7.5 10*3/uL [facility] Neutrophils/100 WBC (Bld) 51.7 % 38.0 - 82.0 % [facility] Nucleated RBC/100 WBC (Bld) [Ratio] 0.0 % [facility] Platelet mean volume (Bld) [Entitic vol] 9.8 fL 9.0 - 12.[address] [facility] Platelets (Bld) [#/Vol] 52 10*3/uL Low 140 - 440 10*3/uL [facility] RBC (Bld) [#/Vol] 3.69 10*6/uL Low 4.40 - 5.9 0 10*6/uL [facility] WBC (Bld) [#/Vol] 4.1 10*3/uL 3.6 - 10.7 10*3/uL [facility] CBC WITH AUTO DIFFERENTIALon 01-17-2024 Basophils (Bld) [#/Vol] 0.0 10*3/uL Normal 0.0-0.2 [facility] Comment on above: Performed By: #### L [id number] ####Fur Comber: ARA WRIGHT ([id number])[address] Basophils/100 WBC (Bld) 0.5 % Normal 0.0-2.0 [facility] Comment on above: Performed By: #### L [id number] ####Fur Comber: ARA WRIGHT ([phone])[facility])[address] [place] [address] Eosinophils (Bld) [#/Vol] 0.0 10*3/uL Normal 0.0-0.5 [facility] Comment on above: Performed By: #### L [id number] ####Fur Comber: ARA WRIGHT ([phone])[facility])[address] [place] [address] Eosinophils/100 WBC (Bld) 1.0 % Normal 0.0-6.0 [facility] Comment on above: Performed By: #### L [id number] ####Fur Comber: ARA WRIGHT ([phone])[facility])[address] [place] [address] Erythrocyte distribution width (RBC) [Ratio] 13.2 % Normal 11.5-15.0 [facility] Comment on above: Performed By: #### L [id number] ####Fur Comber: ARA WRIGHT ([id number])[address] Hematocrit (Bld) [Volume fraction] 33.3 % Low 40.0-52.0 [facility] Comment on above: Performed By: #### L [id number] ####Fur Comber: ARA WRIGHT ([id number])[facility])[address] [place] [address] Hemoglobin (Bld) [Mass/Vol] 11.8 g/dL Low 13.0-18.0 [facility] Comment on above: Performed By: #### L [id number] ####Fur Comber: ARA WRIGHT ([id number])[address] IMMATURE GRANS % 0.2 % Normal 0.0-2.0 [facility] Comment on above: Performed By: #### L [id number] ####Fur Comber: ARA WRIGHT ([id number])[address] IMMATURE GRANS ABSOLUTE 0.0 10*3/uL Normal <0.1 [facility] Comment on above: Performed By: #### L [id number] ####Fur Comber: ARA WRIGHT ([id number])[address] IPF 3 Normal [facility] Comment on above: Performed By: #### L [id number] ####Fur Comber: ARA WRIGHT ([id number])[address] Lymphocytes (Bld) [#/Vol] 1.6 10*3/uL Normal 1.0-4.3 [facility] Comment on above: Performed By: #### L [id number] ####Fur Comber: ARA WRIGHT ([id number])[facility])[address] [place] [address] Lymphocytes/100 WBC (Bld) 39.1 % Normal 15.0-45.0 [facility] Comment on above: Performed By: #### L [id number] ####Fur Comber: ARA WRIGHT ([id number])[facility])[address] [place] [address] MCH (RBC) [Entitic mass] 32.0 pg Normal 26.0-34.0 [facility] Comment on above: Performed By: #### L [id number] ####Fur Comber: ARA WRIGHT ([id number])[facility])[address] [place] [address] MCHC 35.4 % Normal 30.5-36.0 [facility] Comment on above: Performed By: #### L [id number] ####Fur Comber: ARA WRIGHT ([id number])[facility])[address] [place] [address] MCV (RBC) [Entitic vol] 90.2 fL Normal 77.0-99.0 [facility] Comment on above: Performed By: #### L [id number] ####Fur Comber: ARA WRIGHT ([id number])[facility])[address] [place] [address] Monocytes (Bld) [#/Vol] 0.3 10*3/uL Normal 0.0-0.9 [facility] Comment on above: Performed By: #### L [id number] ####Fur Comber: ARA WRIGHT ([id number])[facility])[address] [place] [address] Monocytes/100 WBC (Bld) 7.5 % Normal 5.0-13.0 [facility] Comment on above: Performed By: #### L [id number] ####Fur Comber: ARA WRIGHT ([id number])[facility])[address] [place] [address] NEUTROPHILS ABSOLUTE 2.1 10*3/uL Normal 1.8-7.5 [facility] Comment on above: Performed By: #### L [id number] ####Fur Comber: ARA WRIGHT ([id number])[facility])[address] [place] [address] Neutrophils/100 WBC (Bld) 51.7 % Normal 38.0-82.0 [facility] Comment on above: Performed By: #### L [id number] ####Fur Comber: ARA WRIGHT ([id number])[facility] ([facility])[address] [place] [address] NRBC 0.0 /100 WBCs Normal 0.0-2.0 [facility] Comment on above: Performed By: #### L [id number] ####Fur Comber: ARA WRIGHT ([id number])[facility])[address] [place] [address] Platelet mean volume (Bld) [Entitic vol] 9.8 fL Normal 9.0-12.7 [facility] Comment on above: Performed By: #### L [id number] ####Fur Comber: ARA WRIGHT ([id number])[facility] ([facility])[address] [place] [address] [place] Platelets (Bld) [#/Vol] 52 10*3/uL Low 140-440 [facility] Comment on above: Performed By: #### L [id number] ####Fur Comber: ARA WRIGHT ([id number])[facility] ([facility])[address] [place] [address] RBC (Bld) [#/Vol] 3.69 10*6/uL Low 4.40-5.90 [facility] Comment on above: Performed By: #### L [id number] ####Fur Comber: ARA WRIGHT ([id number])[facility])[address] [place] [address] WBC (Bld) [#/Vol] 4.1 10*3/uL Normal 3.6-10.7 [facility] Comment on above: Performed By: #### L [id number] ####Fur Comber: ARA WRIGHT ([id number])[facility] ([facility])[address] [place] [address] COMPREHENSIVE METABOLIC PANE Peter 01-17-2024 Albumin [Mass/Vol] 3.9 g/dL Normal 3.5-5.0 [facility] Comment on above: Performed By: #### L AB103, LAB17 ####Fur Comber: ARA WRIGHT ([id number])[facility] ([facility])[address] [place] [address] ALP [Catalytic activity/Vol] 64 U/L Normal 38-126 [facility] Comment on above: Performed By: #### L AB103, LAB17 ####Fur Comber: ARA WRIGHT ([id number])[facility] ([facility])[address] [place] [address] ALT [Catalytic activity/Vol] 19 U/L Normal 0-49 [facility] Comment on above: Performed By: #### L AB103, LAB17 ####Fur Comber: ARA WRIGHT ([id number])[facility] ([facility])[address] [place] [address] Anion gap [Moles/Vol] 11 mmol/L Normal 3-13 [facility] Comment on above: Performed By: #### L AB103, LAB17 ####Fur Comber: ARA WRIGHT ([id number])[facility] ([facility])[address] [place] [address] AST [Catalytic activity/Vol] 33 U/L Normal 15-46 [facility] Comment on above: Performed By: #### L AB103, LAB17 ####Fur Comber: ARA WRIGHT ([id number])[facility] ([facility])[address] [place] [address] Bilirubin [Mass/Vol] 0.8 mg/dL Normal 0.2-1.3 [facility] Comment on above: Performed By: #### L AB103, LAB17 ####Fur Comber: ARA WRIGHT ([id number])[facility] [place] [address] [place] Calcium [Mass/Vol] 8.9 mg/dL Normal 8.4-10.4 [facility] Comment on above: Performed By: #### L AB103, LAB17 ####Fur Comber: ARA WRIGHT ([id number])[facility])[address] [place] [address] [place] Chloride [Moles/Vol] 100 mmol/L Normal 98-107 [facility] Comment on above: Performed By: #### L AB103, LAB17 ####Fur Comber: ARA WRIGHT ([id number])[facility] ([facility])[address] [place] [address] CO2 [Moles/Vol] 22 mmol/L Normal 22-30 [facility] Comment on above: Performed By: #### L AB103, LAB17 ####Fur Comber: ARA WRIGHT ([phone])[facility] ([facility])[address] [place] [address] Creatinine [Mass/Vol] 0.79 mg/dL Normal 0.66-1.25 [facility] Comment on above: Performed By: #### L AB103, LAB17 ####Fur Comber: ARA WRIGHT ([id number])[facility])[address] [place] [address] GLOMERULAR FILTRATION RATE ML/MIN/1.73 SQ M.PREDICTED >90.0 Normal >60.0 [facility] Comment on above: Result Comment: Calc ulation based on the Chronic Kidney Disease Epidemiology Collaboration (CKD-EPI) equation refit without adjustment for race Performed By: #### L AB103, LAB17 ####Fur Comber: ARA WRIGHT ([id number])[facility] ([facility])[address] [place] [address] [place] Glucose [Mass/Vol] 111 mg/dL High 70-100 [facility] Comment on above: Performed By: #### L AB103, LAB17 ####Fur Comber: ARA [id number])[facility])[address] [place] [address] Potassium [Moles/Vol] 3.4 mmol/L Low 3.5-5.1 [facility] Comment on above: Performed By: #### L AB103, LAB17 ####Fur Comber: ARA WRIGHT ([id number])[facility] ([facility])[address] [place] [address] Protein [Mass/Vol] 6.8 g/dL Normal 6.3-8.2 [facility] Comment on above: Performed By: #### L AB103, LAB17 ####Fur Comber: ARA WRIGHT ([id number])[facility] ([facility])[address] [place] [address] Sodium [Moles/Vol] 134 mmol/L Low 135-145 [facility] Comment on above: Performed By: #### L AB103, LAB17 ####Fur Comber: ARA WRIGHT ([id number])[facility] ([facility])[address] [place] [address] Urea nitrogen [Mass/Vol] 12 mg/dL Normal 9-20 [facility] Comment on above: Performed By: #### L AB103, LAB17 ####Fur Comber: ARA WRIGHT ([id number])[facility])[address] [place] [address] Comprehensive metabolic 1998 panelon 01-17-2024 Albumin [Mass/Vol] 3.9 g/dL 3.5 - 5.0 g/dL [facility] ALP [Catalytic activity/Vol] 64 U/L 38 - 126 U/L [facility] ALT [Catalytic activity/Vol] 19 U/L 0 - 49 U/L [facility] Anion gap [Moles/Vol] 11 mmol/L 3 - 13 mmol/L [facility] AST [Catalytic activity/Vol] 33 U/L 15 - 46 U/L [facility] Bilirubin [Mass/Vol] 0.8 mg/dL 0.2 - 1 .3 mg/dL [facility] Calcium [Mass/Vol] 8.9 mg/dL 8.4 - 10. 4 mg/dL [facility] Chloride [Moles/Vol] 100 mmol/L 98 - 10 7 mmol/L [facility] CO2 [Moles/Vol] 22 mmol/L 22 - 30 mmol/L [facility] Creatinine [Mass/Vol] 0.79 mg/dL 0.66 - 1.25 mg/dL [facility] GFR/1.73 sq M.predicted MDRD (S/P/Bld) [Vol rate/Area] - PINF [facility] Comment on above: Calculation based on the Chronic Kidney Disease Epidemiology Collaboration (CKD-EPI) equation refit without adjustment for race Glucose [Mass/Vol] 111 mg/dL High 70 - 100 mg/dL [facility] Interpretation and review of laboratory results Abnormal [facility] Potassium [Moles/Vol] 3.4 mmol/L Low 3.5 - 5.1 mmol/L [facility] Protein [Mass/Vol] 6.8 g/dL 6.3 - 8.2 g/dL [facility] Sodium [Moles/Vol] 134 mmol/L Low 135 - 145 mmol/L [facility] Urea nitrogen [Mass/Vol] 12 mg/dL 9 - 20 mg/dL [facility] IDNon 01-17-2024 IDN Normal [facility] Laboratory - Chemistry and C hemistry - challengeon 01-17-2024 Magnesium [Mass/Vol] 1.3 mg/dL Low 1.6 - 2 .3 mg/dL [facility] MAGNESIUMon 01-17-2024 Magnesium [Mass/Vol] 1.3 mg/dL Low 1.6-2.3 [facility] Comment on above: Performed By: #### L AB103, LAB17 ####Fur Comber: ARA WRIGHT ([id number])[facility] ([address] Magnesium [Mass/Vol]on 01-16 Interpretation and review of laboratory results Abnormal [facility] Progress Noteon 01-17-2024 Progress Note Normal [facility] Progress Note Normal [facility] CBC W Auto Differential pane l (Bld)Ordered By: Rommel Card on 01-16-2024 Basophils (Bld) [#/Vol] 0.0 10*3/uL 0.0 - 0.2 10*3/uL [facility] Basophils/100 WBC (Bld) 0.3 % 0.0 - 2.0 % [facility] Eosinophils (Bld) [#/Vol] 0.0 10*3/uL 0.0 - 0.5 10*3/uL [facility] Eosinophils/100 WBC (Bld) 0.3 % 0.0 - 6.0 % [facility] Erythrocyte distribution width (RBC) [Ratio] 13.6 % 11.5 - 15.0 % [facility] Hematocrit (Bld) [Volume fraction] 33.2 % Low 40.0 - 52.0 % [facility] Hemoglobin (Bld) [Mass/Vol] 11.5 g/dL Low 13.0 - 18.0 g/dL [facility] Immature granulocytes (Bld) [#/Vol] 0.0 10*3/uL NINF - 0.1 10*3/uL [facility] Immature granulocytes/100 WBC (Bld) 0.3 % 0.0 - 2.0 % [facility] Interpretation and review of laboratory results Abnormal [facility] IPF 3 [facility] Lymphocytes (Bld) [#/Vol] 1.3 10*3/uL 1.0 - 4.3 10*3/uL [facility] Lymphocytes/100 WBC (Bld) 33.3 % 15.0 - 45.0 % [facility] MCH (RBC) [Entitic mass] 31.4 pg 26.0 - 34.[address] [facility] MCHC (RBC) [Mass/Vol] 34.6 % 30.5 - 36.0 % [facility] MCV (RBC) [Entitic vol] 90.7 fL 77.0 - 99.[address] [facility] Monocytes (Bld) [#/Vol] 0.3 10*3/uL 0.0 - 0.9 10*3/uL [facility] Monocytes/100 WBC (Bld) 7.0 % 5.0 - 13.0 % [facility] Neutrophils (Bld) [#/Vol] 2.3 10*3/uL 1.8 - 7.5 10*3/uL [facility] Neutrophils/100 WBC (Bld) 58.8 % 38.0 - 82.0 % [facility] Nucleated RBC/100 WBC (Bld) [Ratio] 0.0 % [facility] Platelet mean volume (Bld) [Entitic vol] 9.9 fL 9.0 - 12.[address] [facility] Platelets (Bld) [#/Vol] 50 10*3/uL Low 140 - 440 10*3/uL [facility] RBC (Bld) [#/Vol] 3.66 10*6/uL Low 4.40 - 5.9 0 10*6/uL [facility] WBC (Bld) [#/Vol] 3.8 10*3/uL 3.6 - 10.7 10*3/uL [facility] CBC WITH AUTO DIFFERENTIALon 01-16-2024 Basophils (Bld) [#/Vol] 0.0 10*3/uL Normal 0.0-0.2 [facility] Comment on above: Performed By: #### L [id number] ####Fur Comber: ARA WRIGHT ([id number])[facility])[address] [place] [address] Basophils/100 WBC (Bld) 0.3 % Normal 0.0-2.0 [facility] Comment on above: Performed By: #### L [id number] ####Fur Comber: ARA WRIGHT ([id number])[facility])[address] [place] [address] Eosinophils (Bld) [#/Vol] 0.0 10*3/uL Normal 0.0-0.5 [facility] Comment on above: Performed By: #### L [id number] ####Fur Comber: ARA WRIGHT ([id number])[facility])[address] [place] [address] Eosinophils/100 WBC (Bld) 0.3 % Normal 0.0-6.0 [facility] Comment on above: Performed By: #### L [id number] ####Fur Comber: ARA WRIGHT ([id number])[facility])[address] [place] [address] Erythrocyte distribution width (RBC) [Ratio] 13.6 % Normal 11.5-15.0 [facility] Comment on above: Performed By: #### L [id number] ####Fur Comber: ARA [id number])[facility])[address] [place] [address] Hematocrit (Bld) [Volume fraction] 33.2 % Low 40.0-52.0 [facility] Comment on above: Performed By: #### L [id number] ####Fur Comber: ARA WRIGHT ([id number])[facility])[address] [place] [address] Hemoglobin (Bld) [Mass/Vol] 11.5 g/dL Low 13.0-18.0 [facility] Comment on above: Performed By: #### L [id number] ####Fur Comber: ARA WRIGHT ([id number])[facility])[address] [place] [address] IMMATURE GRANS % 0.3 % Normal 0.0-2.0 [facility] Comment on above: Performed By: #### L [id number] ####Fur Comber: ARA WRIGHT ([id number])[facility] ([facility])[address] [place] [address] IMMATURE GRANS ABSOLUTE 0.0 10*3/uL Normal <0.1 [facility] Comment on above: Performed By: #### L [id number] ####Fur Comber: ARA WRIGHT ([id number])[facility])[address] [place] [address] [place] IPF 3 Normal [facility] Comment on above: Performed By: #### L [id number] ####Fur Comber: ARA WRIGHT ([id number])[facility] ([facility])[address] [place] [address] [place] Lymphocytes (Bld) [#/Vol] 1.3 10*3/uL Normal 1.0-4.3 [facility] Comment on above: Performed By: #### L [id number] ####Fur Comber: ARA WRIGHT ([id number])[facility])[address] [place] [address] [place] Lymphocytes/100 WBC (Bld) 33.3 % Normal 15.0-45.0 [facility] Comment on above: Performed By: #### L [id number] ####Fur Comber: ARA WRIGHT ([id number])[facility])[address] [place] [address] MCH (RBC) [Entitic mass] 31.4 pg Normal 26.0-34.0 [facility] Comment on above: Performed By: #### L [id number] ####Fur Comber: ARA WRIGHT ([id number])[facility])[address] [place] [address] MCHC 34.6 % Normal 30.5-36.0 [facility] Comment on above: Performed By: #### L [id number] ####Fur Comber: ARA WRIGHT ([id number])[facility])[address] [place] [address] MCV (RBC) [Entitic vol] 90.7 fL Normal 77.0-99.0 [facility] Comment on above: Performed By: #### L [id number] ####Fur Comber: ARA WRIGHT ([id number])[facility])[address] [place] [address] Monocytes (Bld) [#/Vol] 0.3 10*3/uL Normal 0.0-0.9 [facility] Comment on above: Performed By: #### L [id number] ####Fur Comber: ARA WRIGHT ([id number])[facility])[address] [place] [address] Monocytes/100 WBC (Bld) 7.0 % Normal 5.0-13.0 [facility] Comment on above: Performed By: #### L [id number] ####Fur Comber: ARA WRIGHT ([id number])[facility])[address] [place] [address] NEUTROPHILS ABSOLUTE 2.3 10*3/uL Normal 1.8-7.5 [facility] Comment on above: Performed By: #### L [id number] ####Fur Comber: ARA WRIGHT ([id number])[facility] ([facility])[address] [place] [address] Neutrophils/100 WBC (Bld) 58.8 % Normal 38.0-82.0 [facility] Comment on above: Performed By: #### L [id number] ####Fur Comber: ARA WRIGHT ([id number])[facility] ([facility])[address] [place] [address] NRBC 0.0 /100 WBCs Normal 0.0-2.0 [facility] Comment on above: Performed By: #### L [id number] ####Fur Comber: ARA WRIGHT ([id number])[facility] ([facility])[address] [place] [address] Platelet mean volume (Bld) [Entitic vol] 9.9 fL Normal 9.0-12.7 [facility] Comment on above: Performed By: #### L [id number] ####Fur Comber: ARA WRIGHT ([id number])[facility] ([facility])[address] [place] [address] Platelets (Bld) [#/Vol] 50 10*3/uL Low 140-440 [facility] Comment on above: Performed By: #### L [id number] ####Fur Comber: ARA WRIGHT ([id number])[facility] ([facility])[address] [place] [address] RBC (Bld) [#/Vol] 3.66 10*6/uL Low 4.40-5.90 [facility] Comment on above: Performed By: #### L [id number] ####Fur Comber: ARA WRIGHT ([id number])[facility] ([facility])[address] [place] [address] [place] WBC (Bld) [#/Vol] 3.8 10*3/uL Normal 3.6-10.7 [facility] Comment on above: Performed By: #### L [id number] ####Fur Comber: ARA WRIGHT ([phone])[facility] ([facility])[address] [place] [address] COMPREHENSIVE METABOLIC PANE Peter 01-16-2024 Albumin [Mass/Vol] 4.3 g/dL Normal 3.5-5.0 [facility] Comment on above: Performed By: #### L 103, LAB17 ####Fur Comber: ARA WRIGHT ([id number])[facility] ([facility])[address] [place] [address] ALP [Catalytic activity/Vol] 74 U/L Normal 38-126 [facility] Comment on above: Performed By: #### L 103, LAB17 ####Fur Comber: ARA WRIGHT ([phone])[facility] ([facility])[address] [place] [address] ALT [Catalytic activity/Vol] 23 U/L Normal 0-49 [facility] Comment on above: Performed By: #### Popeye RODAS, LAB17 ####Fur Comber: ARA WRIGHT ([id number])[facility] ([facility])[address] [place] [address] Anion gap [Moles/Vol] 14 mmol/L High 3-13 [facility] Comment on above: Performed By: #### L ADRIANNA, LAB17 ####Fur Comber: ARA WRIGHT ([phone])[facility] ([facility])[address] [place] [address] AST [Catalytic activity/Vol] 47 U/L High 15-46 [facility] Comment on above: Performed By: #### L ADRIANNA, LAB17 ####Fur Comber: ARA WRIGHT ([id number])[facility] ([facility])[address] [place] [address] [place] Bilirubin [Mass/Vol] 1.6 mg/dL High 0.2-1.3 [facility] Comment on above: Performed By: #### L AB103, LAB17 ####Fur Comber: ARA WRIGHT ([phone])[facility] ([facility])[address] [place] [address] [place] Calcium [Mass/Vol] 8.6 mg/dL Normal 8.4-10.4 [facility] Comment on above: Performed By: #### L AB103, LAB17 ####Fur Comber: ARA WRIGHT ([id number])[facility])[address] [place] [address] Chloride [Moles/Vol] 106 mmol/L Normal 98-107 [facility] Comment on above: Performed By: #### L 103, LAB17 ####Fur Comber: ARA WRIGHT ([id number])[facility])[address] [place] [address] CO2 [Moles/Vol] 18 mmol/L Low 22-30 [facility] Comment on above: Performed By: #### Popeye RODAS, LAB17 ####Fur Comber: ARA WRIGHT ([id number])[facility])[address] [place] [address] Creatinine [Mass/Vol] 0.71 mg/dL Normal 0.66-1.25 [facility] Comment on above: Performed By: #### Popeye DERAS103, LAB17 ####Fur Comber: ARA WRIGHT ([id number])[facility])[address] [place] [address] GLOMERULAR FILTRATION RATE ML/MIN/1.73 SQ M.PREDICTED >90.0 Normal >60.0 [facility] Comment on above: Result Comment: Calc ulation based on the Chronic Kidney Disease Epidemiology Collaboration (CKD-EPI) equation refit without adjustment for race Performed By: #### L ADRIANNA, LAB17 ####Fur Comber: ARA WRIGHT ([id number])[facility] ([facility])[address] [place] [address] Glucose [Mass/Vol] 84 mg/dL Normal 70-100 [facility] Comment on above: Performed By: #### L AB103, LAB17 ####Fur Comber: ARA WRIGHT ([id number])[facility])[address] [place] [address] Potassium [Moles/Vol] 3.2 mmol/L Low 3.5-5.1 [facility] Comment on above: Performed By: #### L AB103, LAB17 ####Fur Comber: ARA WRIGHT ([id number])[facility] ([facility])[address] [place] [address] Protein [Mass/Vol] 7.4 g/dL Normal 6.3-8.2 [facility] Comment on above: Performed By: #### Popeye DERAS103, LAB17 ####Fur Comber: ARA WRIGHT ([phone])[facility] ([facility])[address] [place] [address] Sodium [Moles/Vol] 138 mmol/L Normal 135-145 [facility] Comment on above: Performed By: #### Popeye RODAS, LAB17 ####Fur Comber: ARA WRIGHT ([id number])[facility] ([facility])[address] [place] [address] Urea nitrogen [Mass/Vol] 11 mg/dL Normal 9-20 [facility] Comment on above: Performed By: #### Popeye RODAS, LAB17 ####Fur Comber: ARA WRIGHT ([id number])[facility] ([facility])[address] [place] [address] Comprehensive metabolic 1998 panelon 01-16-2024 Albumin [Mass/Vol] 4.3 g/dL 3.5 - 5.0 g/dL [facility] ALP [Catalytic activity/Vol] 74 U/L 38 - 126 U/L [facility] ALT [Catalytic activity/Vol] 23 U/L 0 - 49 U/L [facility] Anion gap [Moles/Vol] 14 mmol/L High 3 - 13 mmol/L [facility] AST [Catalytic activity/Vol] 47 U/L High 15 - 46 U/L [facility] Bilirubin [Mass/Vol] 1.6 mg/dL High 0.2 - 1 .3 mg/dL [facility] Calcium [Mass/Vol] 8.6 mg/dL 8.4 - 10. 4 mg/dL [facility] Chloride [Moles/Vol] 106 mmol/L 98 - 10 7 mmol/L [facility] CO2 [Moles/Vol] 18 mmol/L Low 22 - 30 mmol/L [facility] Creatinine [Mass/Vol] 0.71 mg/dL 0.66 - 1.25 mg/dL [facility] GFR/1.73 sq M.predicted MDRD (S/P/Bld) [Vol rate/Area] - PINF [facility] Comment on above: Calculation based on the Chronic Kidney Disease Epidemiology Collaboration (CKD-EPI) equation refit without adjustment for race Glucose [Mass/Vol] 84 mg/dL 70 - 100 mg/dL [facility] Interpretation and review of laboratory results Abnormal [facility] Potassium [Moles/Vol] 3.2 mmol/L Low 3.5 - 5.1 mmol/L [facility] Protein [Mass/Vol] 7.4 g/dL 6.3 - 8.2 g/dL [facility] Sodium [Moles/Vol] 138 mmol/L 135 - 145 mmol/L [facility] Urea nitrogen [Mass/Vol] 11 mg/dL 9 - 20 mg/dL [facility] Consulton 01-16-2024 Consult Normal [facility] IDNon 01-16-2024 IDN Normal [facility] Laboratory - Chemistry and C hemistry - challengeon 01-16-2024 Magnesium [Mass/Vol] 1.4 mg/dL Low 1.6 - 2 .3 mg/dL [facility] MAGNESIUMon 01-16-2024 Magnesium [Mass/Vol] 1.4 mg/dL Low 1.6-2.3 [facility] Comment on above: Performed By: #### L [id number], LAB17 ####Fur Comber: ARA WRIGHT ([phone])[address] Magnesium [Mass/Vol]on 01-15 Interpretation and review of laboratory results Abnormal [facility] Progress Noteon 01-16-2024 Progress Note Normal [facility] Progress Note Normal [facility] Progress Note Normal [facility] CBC W Auto Differential pane l (Bld)Ordered By: Warner Francisco on 01-15-2024 Basophils (Bld) [#/Vol] 0.0 10*3/uL 0.0 - 0.2 10*3/uL [facility] Basophils/100 WBC (Bld) 0.5 % 0.0 - 2.0 % [facility] Eosinophils (Bld) [#/Vol] 0.0 10*3/uL 0.0 - 0.5 10*3/uL [facility] Eosinophils/100 WBC (Bld) 0.4 % 0.0 - 6.0 % [facility] Erythrocyte distribution width (RBC) [Ratio] 13.6 % 11.5 - 15.0 % [facility] Hematocrit (Bld) [Volume fraction] 34.5 % Low 40.0 - 52.0 % [facility] Hemoglobin (Bld) [Mass/Vol] 12.7 g/dL Low 13.0 - 18.0 g/dL [facility] Immature granulocytes (Bld) [#/Vol] 0.0 10*3/uL NINF - 0.1 10*3/uL [facility] Immature granulocytes/100 WBC (Bld) 0.3 % 0.0 - 2.0 % [facility] Interpretation and review of laboratory results Abnormal [facility] Lymphocytes (Bld) [#/Vol] 1.5 10*3/uL 1.0 - 4.3 10*3/uL [facility] Lymphocytes/100 WBC (Bld) 19.8 % 15.0 - 45.0 % [facility] MCH (RBC) [Entitic mass] 33.2 pg 26.0 - 34.[address] [facility] MCHC (RBC) [Mass/Vol] 36.8 % High 30.5 - 36.0 % [facility] MCV (RBC) [Entitic vol] 90.1 fL 77.0 - 99.[address] [facility] Monocytes (Bld) [#/Vol] 0.2 10*3/uL 0.0 - 0.9 10*3/uL [facility] Monocytes/100 WBC (Bld) 2.4 % Low 5.0 - 13.0 % [facility] Neutrophils (Bld) [#/Vol] 5.7 10*3/uL 1.8 - 7.5 10*3/uL [facility] Neutrophils/100 WBC (Bld) 76.6 % 38.0 - 82.0 % [facility] Nucleated RBC/100 WBC (Bld) [Ratio] 0.0 % [facility] Platelet mean volume (Bld) [Entitic vol] 9.4 fL 9.0 - 12.[address] [facility] Platelets (Bld) [#/Vol] 73 10*3/uL Low 140 - 440 10*3/uL [facility] RBC (Bld) [#/Vol] 3.83 10*6/uL Low 4.40 - 5.9 0 10*6/uL [facility] WBC (Bld) [#/Vol] 7.4 10*3/uL 3.6 - 10.7 10*3/uL [facility] CBC WITH AUTO DIFFERENTIALon 01-15-2024 Basophils (Bld) [#/Vol] 0.0 10*3/uL Normal 0.0-0.2 [facility] Comment on above: Performed By: #### L [id number] ####Fur Comber: ARA WRIGHT ([id number])[facility] [place] [facility] (SWRLAB)[address] [place] [address] Basophils/100 WBC (Bld) 0.5 % Normal 0.0-2.0 [facility] Comment on above: Performed By: #### L [id number] ####Fur Comber: AAR WRIGHT ([phone])[facility]ENTERA [place] (SWRLAB)[address] [place] [address] [place] Eosinophils (Bld) [#/Vol] 0.0 10*3/uL Normal 0.0-0.5 [facility] Comment on above: Performed By: #### L [id number] ####Fur Comber: ARA WRIGHT ([id number])[facility]A [place] (SWRLAB)[address] [place] [address] [place] Eosinophils/100 WBC (Bld) 0.4 % Normal 0.0-6.0 [facility] Comment on above: Performed By: #### L [id number] ####Fur Comber: ARA WRIGHT ([id number])[facility]A [place] (SWRLAB)[address] [place] [address] Erythrocyte distribution width (RBC) [Ratio] 13.6 % Normal 11.5-15.0 [facility] Comment on above: Performed By: #### L [id number] ####Fur Comber: ARA WRIGHT ([id number])[facility] [place] (SWRLAB)[address] [place] [address] Hematocrit (Bld) [Volume fraction] 34.5 % Low 40.0-52.0 [facility] Comment on above: Performed By: #### L [id number] ####Fur Comber: ARA WRIGHT ([id number])[facility] CENTEROctavia [place] (SWRLAB)[address] [place] [address] Hemoglobin (Bld) [Mass/Vol] 12.7 g/dL Low 13.0-18.0 [facility] Comment on above: Performed By: #### L [id number] ####Fur Comber: ARA WRIGHT ([id number])[facility] CENTEROctavia [place] (SWRLAB)[address] [place] [address] IMMATURE GRANS % 0.3 % Normal 0.0-2.0 [facility] Comment on above: Performed By: #### L [id number] ####Fur Comber: ARA WIRGHT ([id number])[facility]ENTEROctavia [place] (SWRLAB)[address] [place] [address] IMMATURE GRANS ABSOLUTE 0.0 10*3/uL Normal <0.1 [facility] Comment on above: Performed By: #### L [id number] ####Fur Comber: ARA WRIGHT ([id number])[facility]ENTEROctavia [place] (SWRLAB)[address] [place] [address] Lymphocytes (Bld) [#/Vol] 1.5 10*3/uL Normal 1.0-4.3 [facility] Comment on above: Performed By: #### L [id number] ####Fur Comber: ARA WRIGHT ([id number])[facility] CENTEROctavia [place] (SWRLAB)[address] [place] [address] [place] Lymphocytes/100 WBC (Bld) 19.8 % Normal 15.0-45.0 [facility] Comment on above: Performed By: #### L [id number] ####Fur Comber: ARA WRIGHT ([id number])[facility]ENTEROctavia [place] (SWRLAB)[address] [place] [address] MCH (RBC) [Entitic mass] 33.2 pg Normal 26.0-34.0 [facility] Comment on above: Performed By: #### L [id number] ####Fur Comber: ARA WRIGHT ([id number])[facility]ENTEROctavia [place] (SWRLAB)[address] [place] [address] MCHC 36.8 % High 30.5-36.0 [facility] Comment on above: Performed By: #### L [id number] ####Fur Comber: ARA WRIGHT ([id number])[facility]ENTEROctavia [place] (SWRLAB)[address] [place] [address] MCV (RBC) [Entitic vol] 90.1 fL Normal 77.0-99.0 [facility] Comment on above: Performed By: #### L [id number] ####Fur Comber: ARA WRIGHT ([id number])[facility]ENTEROctavia [place] (SWRLAB)[address] [place] [address] Monocytes (Bld) [#/Vol] 0.2 10*3/uL Normal 0.0-0.9 [facility] Comment on above: Performed By: #### L [id number] ####Fur Comber: ARA WRIGHT ([id number])[facility] CENTEROctavia [place] (SWRLAB)[address] [place] [address] [place] Monocytes/100 WBC (Bld) 2.4 % Low 5.0-13.0 [facility] Comment on above: Performed By: #### L [id number] ####Fur Comber: ARA WRIGHT ([id number])[facility]ENTEROctavia [place] (SWRLAB)[address] [place] [address] NEUTROPHILS ABSOLUTE 5.7 10*3/uL Normal 1.8-7.5 [facility] Comment on above: Performed By: #### L [id number] ####Fur Comber: ARA WRIGHT ([id number])[facility] [place] (SWRLAB)[address] [place] [address] [place] Neutrophils/100 WBC (Bld) 76.6 % Normal 38.0-82.0 [facility] Comment on above: Performed By: #### L [id number] ####Fur Comber: ARA WRIGHT ([id number])[facility] (SWRLAB)[address] [place] [address] [place] NRBC 0.0 /100 WBCs Normal 0.0-2.0 [facility] Comment on above: Performed By: #### L [id number] ####Fur Comber: ARA WRIGHT ([id number])[place] (SWRLAB)[address] [place] [address] [place] Platelet mean volume (Bld) [Entitic vol] 9.4 fL Normal 9.0-12.7 [facility] Comment on above: Performed By: #### L [id number] ####Fur Comber: ARA WRIGHT ([id number])[facility] (SWRLAB)[address] [place] [address] [place] Platelets (Bld) [#/Vol] 73 10*3/uL Low 140-440 [facility] Comment on above: Performed By: #### L [id number] ####Fur Comber: ARA WRIGHT ([id number])[facility]ENTEROctavia [place] (SWRLAB)[address] [place] [address] [place] RBC (Bld) [#/Vol] 3.83 10*6/uL Low 4.40-5.90 [facility] Comment on above: Performed By: #### L [id number] ####Fur Comber: ARA WRIGHT ([id number])[facility]ENTEROctavia [place] (SWRLAB)[address] [place] [address] [place] WBC (Bld) [#/Vol] 7.4 10*3/uL Normal 3.6-10.7 [facility] Comment on above: Performed By: #### L [id number] ####Fur Comber: ARA WRIGHT ([id number])[facility] CENTEROctavia [place] (SWRLAB)[address] COMPLETE URINALYSISon 2023 AMORPHOUS URATES (#/HPF) IN URINE Few Abnormal Negative [facility] Comment on above: Performed By: #### L [id number] ####Fur Comber: ARA WRIGHT ([id number])[facility]ENTERA [place] (SWRL[place])[address] [place] [address] [place] BACTERIA (#/HPF) IN URINE Few Abnormal Negative [facility] Comment on above: Performed By: #### L [id number] ####Fur Comber: ARA WRIGHT ([id number])[facility]ENTERA [place] (SWRL[place])[address] [place] [address] [place] BILIRUBIN, TOTAL PRESENCE IN URINE Negative Normal Negative [facility] Comment on above: Performed By: #### L [id number] ####Fur Comber: ARA WRIGHT ([id number])[facility]ENTERA [place] (SWRL[place])[address] [place] [address] Clarity (U) Clear Normal Clear [facility] Comment on above: Performed By: #### L [id number] ####Fur Comber: ARA WRIGHT ([id number])[facility]ENTERA [place] (SWRLAB)[address] [place] [address] Color (U) Light Yellow Normal Lt. Yellow [facility] Comment on above: Performed By: #### L [id number] ####Fur Comber: ARA WRIGHT ([id number])[facility]ENTERA [place] (SWRLAB)[address] [place] [address] [place] GLUCOSE (MG/DL) IN URINE Normal Normal Normal (<70) [facility] Comment on above: Performed By: #### L [id number] ####Fur Comber: ARA WRIGHT ([id number])[facility] CENTEROctavia LARADAK[place] RITTM[place] (SWRLAB)[address] [place] [address] [place] HEMOGLOBIN PRESENCE IN URINE Negative Normal Negative [facility] Comment on above: Performed By: #### L [id number] ####Fur Comber: ARA WRIGHT ([id number])[facility]ENTERA [place] (SWRL[place])[address] [place] [address] [place] Ketones Ql (U) Trace Abnormal Negative [facility] Comment on above: Performed By: #### L [id number] ####Fur Comber: ARA WRIGHT ([id number])[facility]ENTERA [place] (SWRLAB)[address] [place] [address] LEUKOCYTE ESTERASE PRESENCE IN URINE BY TEST STRIP Negative Normal Negative [facility] Comment on above: Performed By: #### L [id number] ####Fur Comber: ARA WRIGHT ([id number])[facility]ENTERA [place] (SWRLAB)[address] [place] [address] NITRITE PRESENCE IN URINE Negative Normal Negative [facility] Comment on above: Performed By: #### L [id number] ####Fur Comber: ARA WRIGHT ([id number])[facility]ENTERA [place] (SWRLAB)[address] [place] [address] [place] pH (U) 5.5 [pH] Normal 5.0-8.0 [facility] Comment on above: Performed By: #### L [id number] ####Fur Comber: ARA WRIGHT ([id number])[facility]ENTERA [place] (SWRLAB)[address] [place] [address] [place] Protein (U) [Mass/Vol] 20 mg/dL Abnormal Negative [facility] Comment on above: Performed By: #### L [id number] ####Fur Comber: ARA WRIGHT ([id number])[facility]ENTERA [place] (SWRL[place])[address] [place] [address] [place] RBC (#/HPF) IN URINE SEDIMENT Negative Normal 0-2 [facility] Comment on above: Performed By: #### L [id number] ####Fur Comber: ARA WRIGHT ([id number])[facility] [place] (SWRLAB)[address] Specific gravity (U) [Rel density] 1.014 Normal 1.005-1.030 [facility] Comment on above: Performed By: #### L [id number] ####Fur Comber: ARA WRIGHT ([id number])[facility]ENTEROctavia [place] (SWRLAB)[address] [place] [address] Specimen volume (U) 12 mL Normal [facility] Comment on above: Performed By: #### L [id number] ####Fur Comber: ARA WRIGHT ([id number])[facility]ENTEROctavia [place] (SWRLAB)[address] [place] [address] SQUAMOUS EPITHELIAL CELLS (#/HPF) IN URINE SEDIMENT Negative Normal 3-5 [facility] Comment on above: Performed By: #### L [id number] ####Fur Comber: ARA WRIGHT ([id number])[facility]ENTEROctavia [place] (SWRLAB)[address] [place] [address] [place] UROBILINOGEN (MG/DL) IN URINE Normal Normal Normal (0-1) [facility] Comment on above: Performed By: #### L [id number] ####Fur Comber: ARA WRIGHT ([id number])[facility]ENTEROctavia [place] (SWRLAB)[address] [place] [address] [place] WBC (LEUKOCYTE) (#/HPF) IN URINE SEDIMENT Negative Normal 0-5 [facility] Comment on above: Performed By: #### L [id number] ####Fur Comber: ARA WRIGHT ([id number])[facility] CENTEROctavia [place] (SWRLAB)[address] [place] [address] COMPREHENSIVE METABOLIC PANE Peter 01-15-2024 Albumin [Mass/Vol] 4.7 g/dL Normal 3.5-5.0 [facility] Comment on above: Performed By: #### Popeye DERAS99, LAB17 ####Fur Comber: ARA WRIGHT ([id number])[facility] CENTEROctavia [place]ADAK[place] (SWRLAB)[address] ALP [Catalytic activity/Vol] 86 U/L Normal 38-126 [facility] Comment on above: Performed By: #### L AB99, LAB17 ####Fur Comber: ARA WRIGHT ([id number])[facility]ENTERA [place] (SWRL[place])[address] ALT [Catalytic activity/Vol] 29 U/L Normal 0-49 [facility] Comment on above: Performed By: #### Popeye DERAS99, LAB17 ####Fur Comber: ARA WRIGHT ([id number])[facility]ENTERA [place] (SWRL[place])[address] Anion gap [Moles/Vol] 14 mmol/L High 3-13 [facility] Comment on above: Performed By: #### Popeye DERAS99, LAB17 ####Fur Comber: ARA WRIGHT ([id number])[facility]ENTEROctavia [place] (SWRLAB)[address] AST [Catalytic activity/Vol] 58 U/L High 15-46 [facility] Comment on above: Performed By: #### L AB99, LAB17 ####Fur Comber: ARA WRIGHT ([id number])[facility]ENTEROctavia [place] (SWRLAB)[address] [place] [address] [place] Bilirubin [Mass/Vol] 1.8 mg/dL High 0.2-1.3 [facility] Comment on above: Performed By: #### L AB99, LAB17 ####Fur Comber: ARA WRIGHT ([id number])[facility] CENTEROctavia [place] (SWRLAB)[address] [place] [address] [place] Calcium [Mass/Vol] 9.6 mg/dL Normal 8.4-10.4 [facility] Comment on above: Performed By: #### Popeye LASSITER, LAB17 ####Fur Comber: ARA WRIGHT ([id number])[facility] CENTEROctavia [place] (SWRLAB)[address] [place] [address] [place] Chloride [Moles/Vol] 109 mmol/L High 98-107 [facility] Comment on above: Performed By: #### Popeye LASSITER, LAB17 ####Fur Comber: ARA WRIGHT ([phone])[facility] CENTEROctavia [place] (SWRLAB)[address] [place] [address] [place] CO2 [Moles/Vol] 17 mmol/L Low 22-30 [facility] Comment on above: Performed By: #### Popeye LASSITER, LAB17 ####Fur Comber: ARA WRIGHT ([id number])[facility] CENTEROctavia [place] (SWRLAB)[address] [place] [address] [place] Creatinine [Mass/Vol] 0.90 mg/dL Normal 0.66-1.25 [facility] Comment on above: Performed By: #### Popeye LASSITER, LAB17 ####Fur Comber: ARA WRIGHT ([id number])[facility] CENTEROctavia [place] (SWRLAB)[address] [place] [address] GLOMERULAR FILTRATION RATE ML/MIN/1.73 SQ M.PREDICTED >90.0 Normal >60.0 [facility] Comment on above: Result Comment: Calc ulation based on the Chronic Kidney Disease Epidemiology Collaboration (CKD-EPI) equation refit without adjustment for race Performed By: #### L SRAVANI, LAB17 ####Fur Comber: ARA WRIGHT ([id number])[facility] CENTEROctavia [place] (SWRLAB)[address] [place] [address] [place] Glucose [Mass/Vol] 133 mg/dL High 70-100 [facility] Comment on above: Performed By: #### L SRAVANI, LAB17 ####Fur Comber: ARA WRIGHT ([id number])[facility] CENTEROctavia [place] (SWRLAB)[address] Potassium [Moles/Vol] 4.0 mmol/L Normal 3.5-5.1 [facility] Comment on above: Performed By: #### L AB99, LAB17 ####Fur Comber: ARA WRIGHT ([id number])[facility] CENTEROctavia [place] (SWRLAB)[address] Protein [Mass/Vol] 8.1 g/dL Normal 6.3-8.2 [facility] Comment on above: Performed By: #### L AB99, LAB17 ####Fur Comber: ARA WRIGHT ([id number])[facility] CENTEROctavia [place] (SWRLAB)[address] Sodium [Moles/Vol] 140 mmol/L Normal 135-145 [facility] Comment on above: Performed By: #### L AB99, LAB17 ####Fur Comber: ARA WRIGHT ([id number])[facility] CENTEROctavia [place] (SWRLAB)[address] Urea nitrogen [Mass/Vol] 11 mg/dL Normal 9-20 [facility] Comment on above: Performed By: #### L AB99, LAB17 ####Fur Comber: ARA WRIGHT ([id number])[facility] CENTEROctavia [place] (SWRLAB)[address] Comprehensive metabolic 1998 panelon 01-15-2024 Albumin [Mass/Vol] 4.7 g/dL 3.5 - 5.0 g/dL [facility] ALP [Catalytic activity/Vol] 86 U/L 38 - 126 U/L [facility] ALT [Catalytic activity/Vol] 29 U/L 0 - 49 U/L [facility] Anion gap [Moles/Vol] 14 mmol/L High 3 - 13 mmol/L [facility] AST [Catalytic activity/Vol] 58 U/L High 15 - 46 U/L [facility] Bilirubin [Mass/Vol] 1.8 mg/dL High 0.2 - 1 .3 mg/dL [facility] Calcium [Mass/Vol] 9.6 mg/dL 8.4 - 10. 4 mg/dL [facility] Chloride [Moles/Vol] 109 mmol/L High 98 - 10 7 mmol/L [facility] CO2 [Moles/Vol] 17 mmol/L Low 22 - 30 mmol/L [facility] Creatinine [Mass/Vol] 0.90 mg/dL 0.66 - 1.25 mg/dL [facility] GFR/1.73 sq M.predicted MDRD (S/P/Bld) [Vol rate/Area] - PINF [facility] Comment on above: Calculation based on the Chronic Kidney Disease Epidemiology Collaboration (CKD-EPI) equation refit without adjustment for race Glucose [Mass/Vol] 133 mg/dL High 70 - 100 mg/dL [facility] Interpretation and review of laboratory results Abnormal [facility] Potassium [Moles/Vol] 4.0 mmol/L 3.5 - 5.1 mmol/L [facility] Protein [Mass/Vol] 8.1 g/dL 6.3 - 8.2 g/dL [facility] Sodium [Moles/Vol] 140 mmol/L 135 - 145 mmol/L [facility] Urea nitrogen [Mass/Vol] 11 mg/dL 9 - 20 mg/dL [facility] DRUGS OF ABUSEon 01-15-2024 AMPHETAMINE SCREEN Negative Normal [facility] Comment on above: Performed By: #### L [id number] ####Fur Comber: RAA WRIGHT ([id number])[facility] [place] (CabaraRLAB)[address] [place] [address] BARBITURATES SCREEN Negative Normal [facility] Comment on above: Performed By: #### L [id number] ####Fur Comber: ARA WRIGHT ([id number])[facility] [place] (SWRLAB)[address] [place] [address] BENZODIAZEPINE SCREEN Negative Normal [facility] Comment on above: Performed By: #### L [id number] ####Fur Comber: ARA WRIGHT ([id number])[facility] ([facility])[address] COCAINE METAB. SCREEN Negative Normal [facility] Comment on above: Performed By: #### L [id number] ####Fur Comber: ARA WRIGHT ([id number])[facility] [place] [facility] (SWRLAB)[address] METHADONE SCREEN Negative Normal [facility] Comment on above: Performed By: #### L [id number] ####Fur Comber: ARA WRIGHT ([id number])[facility] [place] [facility] (SWRLAB)[address] OPIATES SCREEN Positive Normal [facility] Comment on above: Performed By: #### L [id number] ####Fur Comber: ARA WRIGHT ([id number])[facility] [place] [facility] (SWRLAB)[address] [place] [address] OXYCODONE SCREEN Negative Normal [facility] Comment on above: Performed By: #### L [id number] ####Fur Comber: ARA WRIGHT ([id number])[facility] [place] (SWRLAB)[address] [place] [address] PHENCYCLIDINE SCREEN Negative Normal [facility] Comment on above: Result Comment: [...] under separate order. Performed By: #### L [id number] ####Fur Comber: ARA WRIGHT ([id number])[facility] (SWRLAB)[address] ED Nursing Noteon 01-15-2024 ED Nursing Note Phoned [facility] 5E. Hand off report given to MEGGAN Laurent. Nurse requesting that patient have another dose of ativan prior to leaving. Physician informed. Pratibha Okeefe RN 01/15/24 1647 Normal [facility] ED Nursing Note RN spoke Christie per patient request and asked her to bring him glasses and his cane, Christie acknowledged and thanked RN for the call. Aubree Ratliff RN 01/15/24 1322 Normal [facility] ED Nursing Note Patient declined any thing to eat or drink at this time. Call light within reach Pratibha Okeefe RN 01/15/24 1241 Normal [facility] ED Nursing Note Normal [facility] ED Provider Noteon ED Provider Note Normal [facility] ETHANOLon 01-15-2024 ETHANOL IN SER/PLAS <0.010 Normal 0.000-0.010 [facility] Comment on above: Result Comment: CLAIRE Rivera COMMENTS:NOTE: This result is for medical treatment only. Analysis performed using non-forensic procedures. Performed By: #### L AB46 ####Fur Comber: ARA WRIGHT ([id number])[facility] (RLAB)[address] [place] [address] Ethanol (Bld) [Mass/Vol]on 0 01-15-2024 Ethanol [Mass/Vol] g/dL 0.000 - 0.010 g/dL [facility] Interpretation and review of laboratory results Normal [facility] IDNon 01-15-2024 IDN Normal [facility] LIPASEon 01-15-2024 Lipase [Catalytic activity/Vol] 124 U/L Normal 23-300 [facility] Comment on above: Performed By: #### L AB99, LAB17 ####Fur Comber: ARA WRIGHT ([id number])[facility] ([facility] [place] [address] Laboratory - Chemistry and C hemistry - challengeon 01-15-2024 Lipase [Catalytic activity/Vol] 124 U/L 23 - 300 U/L [facility] Laboratory - Drug toxicology Ordered By: Perla Garcia on 01-15-2024 Amphetamines Screen method >1000 ng/mL Ql (U) Negative [facility] Barbiturates Screen method >200 ng/mL Ql (U) Negative [facility] Benzodiazepines Ql (U) Negative [facility] Methadone Screen Ql (U) Negative [facility] Opiates Screen Ql (U) Positive [facility] oxyCODONE Ql (U) Negative [facility] Phencyclidine Ql (U) Negative [facility] Laboratory - Microbiology an d Antimicrobial susceptibilityon 01-15-2024 SARS-CoV-2 (COVID-19) Ag IA.rapid Ql (Resp) Positive Abnormal Negative [facility] Comment on above: This test detects moreno th viable and non-viable virus. Positive results do not differentiate between SARS-CoV and SARS-CoV-2. If differentiation of specific SARS is needed, additional testing with a NAAT-based method is required. Method: Lateral flow immunoassay. Fact sheets for healthcare providers and patients can be found at the following sites: https://www.fda.gov/media/145497/download https://www.fda.gov/media/169592/download Lipase [Catalytic activity/V ol]on 01-15-2024 Interpretation and review of laboratory results Normal [facility] No Panel InformationOrdered By: Perla Garcia on 01-15-2024 COCAINE METAB. SCREEN Negative [facility] The expected value f or all [...] is needed, request confirmation under separate order. [facility] No Panel Informationon 01-[address] [facility] SARS-COV-2 ANTIGENon 024 SARS-COV-2 ANTIGEN Normal [facility] Comment on above: Performed By: #### L [id number] ####Fur Comber: ARA WRIGHT ([id number])[facility] (SW[facility])[address] [place] [address] SARS-CoV-2 (COVID-19) Ag IA. rapid Ql (Resp)on 01-15-2024 Interpretation and review of laboratory results Abnormal [facility] Urinalysis complete panel (U )on 01-15-2024 Amorphous Urates, Urine Few Abnormal Negative /HPF [facility] Bacteria LM.HPF (Urine sed) [#/Area] Few Abnormal Negative /HPF [facility] Bilirubin Ql (U) Negative Negative mg/dL [facility] Clarity (U) Clear Clear [facility] Color (U) Light Yellow Lt. Yellow [facility] Epithelial cells.squamous LM.HPF (Urine sed) [#/Area] Negative [facility] Glucose Ql (U) Normal Normal (<70) mg/dL [facility] Hemoglobin Ql (U) Negative Negative mg/dL [facility] Interpretation and review of laboratory results Abnormal [facility] Ketones (U) [Mass/Vol] Trace Abnormal Negat zenia mg/dL [facility] Leukocyte esterase Test strip Ql (U) Negative Negative Emma/uL [facility] Nitrite Ql (U) Negative Negative [facility] pH (U) 5.5 [pH] 5.0 - 8.[address] [facility] Protein (U) [Mass/Vol] 20 mg/dL Abnormal Negative [facility] RBC LM.HPF (Urine sed) [#/Area] Negative [facility] Specific gravity (U) [Rel density] 1.014 1.005 - 1.[address] [facility] Urobilinogen (U) [Mass/Vol] Normal Normal (0-1) mg/dL [facility] Volume, Urine [address] [facility] WBC LM.HPF (Urine sed) [#/Area] Negative [facility] CNPNon 12-29-2023 CNPN Telephone (GSTNOR) ----- WOODY NI ([id number]) 1960 M T Date Time Provider Department [...] Status:Closed by SIMIN BENJAMIN on 12/29/23 Normal [facility] A1AT SerPl-mCncon 12-25-2023 Alpha 1 antitrypsin [Mass/Vol] 147 mg/dL Normal 90-200 [facility] Comment on above: Order Comment: Speci radha Type: BLOOD SPECIMEN Ordering Facility: [facility] Address: [address] [place] [address] Performed By: #### 2 276-4, 2064-4, 1825-9, 3040-3 #### [facility] CLIA [id number] [address] [place] [address] [place] JONH BY IFA WITH REFLEXon Nuclear Ab Ql (S) Negative Normal Negative [facility] Comment on above: Order Comment: Kel garcia Type: BLOOD SPECIMEN Ordering Facility: [facility] Address: [facility], [place] [address] Result Comment: Anti -nuclear antibody test is used as an aid in diagnosis of systemic autoimmune diseases. Where positive and clinically warranted, follow-up using disease-specific testing is recommended. Low positive titers are not uncommon with advanced age, certain chronic infections, and malignancies among others. Test methodology: Indirect fluorescence immunoassay (IFA) using HEp-2 cells. Performed By: #### P LATF4 #### [facility] CLIA [id number] [address] [place] [address] [place] Ammonia Plas-sCncon 12-25-19 24 Ammonia (P) [Moles/Vol] 17 umol/L Normal 16-60 [facility] Comment on above: Order Comment: Speci men Type: BLOOD SPECIMEN Ordering Facility: [facility] Address: [facility], [place] [address] Performed By: #### P LATF4 #### [facility] CLIA [id number] [address] [place] [address] [place] CBC W Auto Differential pane l (Bld)on 12-25-2023 Basophils (Bld) [#/Vol] 0.04 10*3/uL Normal <0.11 [facility] Comment on above: Order Comment: Speci men Type: BLOOD SPECIMEN Ordering Facility: [facility] Address: [address] [place] [address] Performed By: #### 5 7021-8 #### [facility] CLIA [id number] [address] [place] [address] [place] Basophils/100 WBC (Bld) 0.4 % Normal [facility] Comment on above: Order Comment: Speci men Type: BLOOD SPECIMEN Ordering Facility: [facility] Address: [address] [place] [address] Performed By: #### 5 7021-8 #### [facility] CLIA [id number] [address] [place] [address] [place] Differential cell count method Nom (Bld) Auto Normal [facility] Comment on above: Order Comment: Speci men Type: BLOOD SPECIMEN Ordering Facility: [facility] Address: [address] [place] [address] Performed By: #### 5 7021-8 #### [facility] CLIA [id number] [address] [place] [address] [place] Eosinophils (Bld) [#/Vol] 0.04 10*3/uL Normal <0.46 [facility] Comment on above: Order Comment: Speci men Type: BLOOD SPECIMEN Ordering Facility: [facility] Address: [address] [place] [address] Performed By: #### 5 7021-8 #### [facility] CLIA [id number] [address] [place] [address] [place] Eosinophils/100 WBC (Bld) 0.4 % Normal [facility] Comment on above: Order Comment: Speci men Type: BLOOD SPECIMEN Ordering Facility: [facility] Address: [address] [place] [address] Performed By: #### 5 7021-8 #### [facility] CLIA [id number] [address] [place] [address] [place] Erythrocyte distribution width (RBC) [Ratio] 12.4 % Normal 11.5-15.0 [facility] Comment on above: Order Comment: Speci men Type: BLOOD SPECIMEN Ordering Facility: [facility] Address: [address] [place] [address] Performed By: #### 5 7021-8 #### [facility] CLIA [id number] [address] [place] [address] [place] Hematocrit (Bld) [Volume fraction] 39.0 % Normal 39.0-51.0 [facility] Comment on above: Order Comment: Speci men Type: BLOOD SPECIMEN Ordering Facility: [facility] Address: [address] [place] [address] Performed By: #### 5 7021-8 #### [facility] CLIA [id number] [address] [place] [address] [place] Hemoglobin (Bld) [Mass/Vol] 13.5 g/dL Normal 13.0-17.0 [facility] Comment on above: Order Comment: Speci men Type: BLOOD SPECIMEN Ordering Facility: [facility] Address: [address] [place] [address] Performed By: #### 5 7021-8 #### [facility] CLIA [id number] [address] [place] [address] [place] Immature granulocytes (Bld) [#/Vol] 0.10 10*3/uL High <0.10 [facility] Comment on above: Order Comment: Speci men Type: BLOOD SPECIMEN Ordering Facility: [facility] Address: [address] [place] [address] Performed By: #### 5 7021-8 #### [facility] CLIA [id number] [address] [place] [address] [place] Immature granulocytes/100 WBC (Bld) 1.0 % Normal [facility] Comment on above: Order Comment: Speci men Type: BLOOD SPECIMEN Ordering Facility: [facility] Address: [address] [place] [address] Performed By: #### 5 7021-8 #### [facility] CLIA [id number] [address] [place] [address] [place] Lymphocytes (Bld) [#/Vol] 2.60 10*3/uL Normal 1.00-4.00 [facility] Comment on above: Order Comment: Speci men Type: BLOOD SPECIMEN Ordering Facility: [facility] Address: [address] [place] [address] Performed By: #### 5 7021-8 #### [facility] CLIA [id number] [address] [place] [address] [place] Lymphocytes/100 WBC (Bld) 25.2 % Normal [facility] Comment on above: Order Comment: Speci men Type: BLOOD SPECIMEN Ordering Facility: [facility] Address: [address] [place] [address] Performed By: #### 5 7021-8 #### [facility] CLIA [id number] [address] [place] [address] [place] MCH (RBC) [Entitic mass] 32.0 pg Normal 26.0-34.0 [facility] Comment on above: Order Comment: Speci men Type: BLOOD SPECIMEN Ordering Facility: [facility] Address: [address] [place] [address] Performed By: #### 5 7021-8 #### [facility] CLIA [id number] [address] [place] [address] [place] MCHC (RBC) [Mass/Vol] 34.6 g/dL Normal 30.5-36.0 [facility] Comment on above: Order Comment: Speci men Type: BLOOD SPECIMEN Ordering Facility: [facility] Address: [address] [place] [address] Performed By: #### 5 7021-8 #### [facility] CLIA [id number] [address] [place] [address] [place] MCV (RBC) [Entitic vol] 92.4 fL Normal 80.0-100.0 [facility] Comment on above: Order Comment: Speci men Type: BLOOD SPECIMEN Ordering Facility: [facility] Address: [address] [place] [address] Performed By: #### 5 7021-8 #### [facility] CLIA [id number] [address] [place] [address] [place] Monocytes (Bld) [#/Vol] 0.46 10*3/uL Normal <0.87 [facility] Comment on above: Order Comment: Speci men Type: BLOOD SPECIMEN Ordering Facility: [facility] Address: [address] [place] [address] Performed By: #### 5 7021-8 #### [facility] CLIA [id number] [address] [place] [address] [place] Monocytes/100 WBC (Bld) 4.5 % Normal [facility] Comment on above: Order Comment: Speci men Type: BLOOD SPECIMEN Ordering Facility: [facility] Address: [address] [place] [address] Performed By: #### 5 7021-8 #### [facility] CLIA [id number] [address] [place] [address] [place] Neutrophils (Bld) [#/Vol] 7.09 10*3/uL Normal 1.45-7.50 [facility] Comment on above: Order Comment: Speci men Type: BLOOD SPECIMEN Ordering Facility: [facility] Address: [address] [place] [address] Performed By: #### 5 7021-8 #### [facility] CLIA [id number] [address] [place] [address] [place] Neutrophils/100 WBC (Bld) 68.5 % Normal [facility] Comment on above: Order Comment: Speci men Type: BLOOD SPECIMEN Ordering Facility: [facility] Address: [address] [place] [address] Performed By: #### 5 7021-8 #### [facility] CLIA [id number] [address] [place] [address] [place] Nucleated RBC (Bld) [#/Vol] 10*3/uL Normal <0.01 [facility] Comment on above: Order Comment: Speci men Type: BLOOD SPECIMEN Ordering Facility: [facility] Address: [address] [place] [address] Performed By: #### 5 7021-8 #### [facility] CLIA [id number] [address] [place] [address] [place] Nucleated RBC/100 WBC (Bld) [Ratio] 0.0 /100 WBC Normal [facility] Comment on above: Order Comment: Speci men Type: BLOOD SPECIMEN Ordering Facility: [facility] Address: [address] [place] [address] Performed By: #### 5 7021-8 #### [facility] CLIA [id number] [address] [place] [address] [place] Platelet mean volume (Bld) [Entitic vol] 8.7 fL Low 9.0-12.7 [facility] Comment on above: Order Comment: Speci men Type: BLOOD SPECIMEN Ordering Facility: [facility] Address: [address] [place] [address] Performed By: #### 5 7021-8 #### [facility] CLIA [id number] [address] [place] [address] [place] Platelets (Bld) [#/Vol] 153 10*3/uL Normal 150-400 [facility] Comment on above: Order Comment: Speci men Type: BLOOD SPECIMEN Ordering Facility: [facility] Address: [address] [place] [address] Performed By: #### 5 7021-8 #### [facility] CLIA [id number] [address] [place] [address] [place] RBC (Bld) [#/Vol] 4.22 10*6/uL Normal 4.20-6.[address] [facility] Comment on above: Order Comment: Speci men Type: BLOOD SPECIMEN Ordering Facility: [facility] Address: [address] [place] [address] Performed By: #### 5 7021-8 #### [facility] CLIA [id number] [address] [place] [address] [place] WBC (Bld) [#/Vol] 10.33 10*3/uL Normal 3.70-11.00 [facility] Comment on above: Order Comment: Speci men Type: BLOOD SPECIMEN Ordering Facility: [facility] Address: [address] [place] [address] Performed By: #### 5 7021-8 #### [facility] CLIA [id number] [address] [place] [address] [place] CT ABD/PEL W IVCONon 024 CT ABD/PEL W IVCON * * *Final Report* * * DATE OF EXAM: Dec 25 2023 2:24PM [facility] 0530 - CT ABD/PEL W IVCON / [...] fractures are noted bilaterally. Lower thorax: Unremarkable. Sleeve Tailor (topogram) images: IMPRESSION: 1. No acute findings are identified. 2. Cirrhotic morphology. 3. Right nephrolithiasis. No hydronephrosis. Interior Design Teacher: HAJA Transcribe Date/Time: Dec 25 2023 2:29P Dictated by : OKSANA KLINE MD This examination was interpreted and the report reviewed and electronically signed by: OKSANA KLINE MD on Dec 25 2023 2:39PM EST [id number] Normal [facility] Ceruloplasmin SerPl-mCncon 0 12-25-2023 Ceruloplasmin [Mass/Vol] 21 mg/dL Normal 15-30 [facility] Comment on above: Order Comment: Speci men Type: BLOOD SPECIMEN Ordering Facility: [facility] Address: [address] [place] [address] Performed By: #### 2 276-4, 2064-4, 1825-9, 3040-3 #### [facility] CLIA [id number] [address] [place] [address] [facility] Comprehensive metabolic 2000 panelon 12-25-2023 Albumin [Mass/Vol] 4.3 g/dL Normal 3.9-4.9 [facility] Comment on above: Order Comment: Speci men Type: BLOOD SPECIMEN Ordering Facility: [facility] Address: [address] [place] [address] Performed By: #### 2 4323-8, 52707-8 #### [facility] CLIA [id number] [address] [place] [address] [place] ALP [Catalytic activity/Vol] 69 U/L Normal 38-113 [facility] Comment on above: Order Comment: Speci men Type: BLOOD SPECIMEN Ordering Facility: [facility] Address: [address] [place] [address] Performed By: #### 2 4323-8, 74866-3 #### [facility] CLIA [id number] [address] [place] [address] [place] ALT [Catalytic activity/Vol] 15 U/L Normal 10-54 [facility] Comment on above: Order Comment: Speci men Type: BLOOD SPECIMEN Ordering Facility: [facility] Address: [address] [place] [address], [place] [address] Performed By: #### 2 432-8, #### [facility] CLIA [id number] [address] [place] [address] [place] Anion gap [Moles/Vol] 12 mmol/L Normal 9-18 [facility] Comment on above: Order Comment: Speci men Type: BLOOD SPECIMEN Ordering Facility: [facility] Address: [address] [place] [address] Performed By: #### 2 432-8, #### [facility] CLIA [id number] [address] [place] [address] [place] AST [Catalytic activity/Vol] 16 U/L Normal 14-40 [facility] Comment on above: Order Comment: Speci men Type: BLOOD SPECIMEN Ordering Facility: [facility] Address: [address] [place] [address] Performed By: #### 2 8, #### [facility] CLIA [id number] [address] [place] [address] [place] Bilirubin [Mass/Vol] 0.6 mg/dL Normal 0.2-1.3 [facility] Comment on above: Order Comment: Speci men Type: BLOOD SPECIMEN Ordering Facility: [facility] Address: [facility] [place] [address] Performed By: #### 2 4323-05, #### [facility] CLIA [id number] [address] [place] [address] [place] Calcium [Mass/Vol] 9.6 mg/dL Normal 8.5-10.2 [facility] Comment on above: Order Comment: Speci men Type: BLOOD SPECIMEN Ordering Facility: [facility] Address: [address] [place] [address] Performed By: #### 2 4322-8, #### [facility] CLIA [id number] [address] [place] [address] [place] Chloride [Moles/Vol] 95 mmol/L Low 97-105 [facility] Comment on above: Order Comment: Speci men Type: BLOOD SPECIMEN Ordering Facility: [facility] Address: [address] [place] [address] Performed By: #### 2 4323-8, 09610-4 #### [facility] CLIA [id number] [address] [place] [address] [place] CO2 [Moles/Vol] 23 mmol/L Normal 22-30 [facility] Comment on above: Order Comment: Speci men Type: BLOOD SPECIMEN Ordering Facility: [facility] Address: [address] [place] [address] Performed By: #### 2 4323-8, 58334-6 #### [facility] CLIA [id number] [address] [place] [address] [place] Creatinine [Mass/Vol] 0.78 mg/dL Normal 0.73-1.22 [facility] Comment on above: Order Comment: Speci men Type: BLOOD SPECIMEN Ordering Facility: [facility] Address: [address] [place] [address] Performed By: #### 2 4323-8, 97808-6 #### [facility] CLIA [id number] [address] [place] [address] [place] Creatinine and Glomerular filtration rate.predicted panel (S/P/Bld) 100 mL/min/1.73m??? Normal >=60 [facility] Comment on above: Order Comment: Speci men Type: BLOOD SPECIMEN Ordering Facility: [facility] Address: [address] [place] [address] Result Comment: Brie mated Glomerular Filtration Rate [...] By: #### 2 43212-24, #### [facility] CLIA [id number] [address] [place] [address] [place] Glucose [Mass/Vol] 108 mg/dL High 74-99 [facility] Comment on above: Order Comment: Kel garcia Type: BLOOD SPECIMEN Ordering Facility: [facility] Address: [address] [place] [address] Result Comment: The [place] [employer] (ADA) provides guidance for cutoff [...] Standards of Medical Care in Diabetes 2016, [place] [employer]. Diabetes Care. 2016.39(Suppl 1). Performed By: #### 2 43212-24, #### [facility] CLIA [id number] [address] [place] [address] [place] Potassium [Moles/Vol] 3.5 mmol/L Low 3.7-5.1 [facility] Comment on above: Order Comment: Kel garcia Type: BLOOD SPECIMEN Ordering Facility: [facility] Address: [address] [place] [address] Performed By: #### 2 43212-24, #### [facility] CLIA [id number] [address] [place] [address] [place] Protein [Mass/Vol] 7.3 g/dL Normal 6.3-8.0 [facility] Comment on above: Order Comment: Speci men Type: BLOOD SPECIMEN Ordering Facility: [facility] Address: [address] [place] [address] Performed By: #### 2 4323-8, #### [facility] [id number] [address] [place] [address] [place] Sodium [Moles/Vol] 130 mmol/L Low 136-144 [facility] Comment on above: Order Comment: Speci men Type: BLOOD SPECIMEN Ordering Facility: [facility] Address: [address] [place] [address] Performed By: #### 2 4323-8, #### [facility] [id number] [address] [place] [address] [place] Urea nitrogen [Mass/Vol] 11 mg/dL Normal 9-24 [facility] Comment on above: Order Comment: Speci men Type: BLOOD SPECIMEN Ordering Facility: [facility] Address: [address] [place] [address] Performed By: #### 2 4323-8, #### [facility] [id number] [address] [place] [address] [place] Ferritin SerPl-mCncon 2023 Ferritin [Mass/Vol] 295.0 ng/mL Normal 30.3-565.7 [facility] Comment on above: Order Comment: Speci men Type: BLOOD SPECIMEN Ordering Facility: [facility] Address: [address] [place] [address] Performed By: #### 2 276-4, 2064-4, 1825-9, 3040-3 #### [facility] CLIA [id number] [address] [facility] [place] [address] [id number] [address] [place] Lipase SerPl-cCncon 12-25-19 24 Lipase [Catalytic activity/Vol] 39 U/L Normal 16-61 [facility] Comment on above: Order Comment: Speci men Type: BLOOD SPECIMEN Ordering Facility: [facility] Address: [address] [place] [address] Performed By: #### 2 276-4, 2064-4, 1825-9, 3040-3 #### [facility] CLIA [id number] [address] [place] [address] [place] Magnesium SerPl-mCncon 12-24 Magnesium [Mass/Vol] 1.8 mg/dL Normal 1.7-2.3 [facility] Comment on above: Order Comment: Speci men Type: BLOOD SPECIMEN Ordering Facility: [facility] Address: [address] [place] [address] Performed By: #### 2 4323-8, 07511-6 #### [facility] CLIA [id number] [address] [place] [address] [place] Mitochondria Ab IF Ql (S)on 12-25-2023 Mitochondria M2 Ab IA Qn (S) 1.6 Units Normal <=20.0 [facility] Comment on above: Order Comment: Speci men Type: BLOOD SPECIMEN Ordering Facility: [facility] Address: [address] [place] [address] Performed By: #### 1 4252-1, JAN, 40962-4 #### [facility] CLIA [id number] [address] [place] [address] [place] Mitochondria M2 Ab Ql (S) Negative Normal Negative [facility] Comment on above: Order Comment: Speci men Type: BLOOD SPECIMEN Ordering Facility: [facility] Address: [address] [place] [address] Result Comment: Anti -mitochondrial antibody test is used as an aid in diagnosis of primary biliary cholangitis. Clinical correlation is required. Performed By: #### 1 4252-1, JAN, 37578-6 #### [facility] CLIA [id number] [address] [place] [address] [place] PT panel Coag (PPP)on 2023 INR Coag (PPP) [Relative time] 1.0 {INR} Normal 0.9-1.3 [facility] Comment on above: Order Comment: Kel garcia Type: BLOOD SPECIMEN Ordering Facility: [facility] Address: [facility], [place] [address] Result Comment: Celine min K Antagonist (VKA) Therapeutic Range: INR 2 to 3 (Target INR of 2.5) Note: For patients treated with VKA drugs, such as warfarin, the [place] [employer] 2012 Guideline recommends [...] Chest 2012, 141:7S-47S Vandana RA, et al. [facility] 2017, 70: 252-289 Performed By: #### P LATF4 #### [facility] CLIA [id number] [address] [place] [address] [place] PT Coag (PPP) [Time] 10.2 s Normal <13.1 [facility] Comment on above: Order Comment: Kel garcia Type: BLOOD SPECIMEN Ordering Facility: [facility] Address: [facility], [place] [address] Performed By: #### P LATF4 #### [facility] CLIA [id number] [address] [place] [address] [place] Smooth muscle Ab Ql (S)on ACTIN SMOOTH MUSCLE IGG QUALITATIVE Negative Normal Negative [facility] Comment on above: Order Comment: Kel garcia Type: BLOOD SPECIMEN Ordering Facility: [facility] Address: [address] [place] [address] Performed By: #### 1 4252-1, JAN, 48480-3 #### [facility] CLIA [id number] [address] [place] [address] [place] ACTIN SMOOTH MUSCLE IGG QUANTITATIVE 13 Units Normal <20 [facility] Comment on above: Order Comment: Speci men Type: BLOOD SPECIMEN Ordering Facility: [facility] Address: [address] [place] [address] Performed By: #### 1 4252-1, JAN, 30759-4 #### [facility] CLIA [id number] [address] [place] [address] [place] CNOVon 12-24-2023 CNOV Office Visit ([facility] ) ----- JORJEWOODY ([id number]) 1960 M T Date Time Provider Department [...] Pt performed labs, got recommended EGD through [facility]. 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 Low grade fevers at home. [facility] Admission 10/2023 HOSPITAL COURSE: Woody Ni [...] diet and he is being discharged to [facility] 2021 OV 2021 Woody Ni is [...] (FLONASE) 50 mcg/actuation nasal spray Use 1 [place] in the nose once daily as needed. [...] iron deficiency (more content not included)... Normal [facility] CBC panel Auto (Bld)on 10-27 Erythrocyte distribution width (RBC) [Ratio] 13.8 % 11.5 - 14.5 % [facility] Hematocrit (Bld) [Volume fraction] 32.1 % Low 40.0 - 52.0 % [facility] Hemoglobin (Bld) [Mass/Vol] 10.8 g/dL Low 13.0 - 18.0 g/dL [facility] Interpretation and review of laboratory results Abnormal [facility] MCH (RBC) [Entitic mass] 34.0 pg 26.0 - 34.[address] [facility] MCHC (RBC) [Mass/Vol] 33.7 % 32.0 - 36.0 % [facility] MCV (RBC) [Entitic vol] 100.9 fL High 80.0 - 98.[address] [facility] Platelet mean volume (Bld) [Entitic vol] 8.2 fL 7.4 - 12.[address] [facility] Platelets (Bld) [#/Vol] 76 10*3/uL Low 140 - 440 10*3/uL [facility] RBC (Bld) [#/Vol] 3.18 10*6/uL Low 4.40 - 5.9 0 10*6/uL [facility] WBC (Bld) [#/Vol] 3.3 10*3/uL Low 3.6 - 10.7 10*3/uL [facility] Comprehensive metabolic 1998 panelon 10-27-2023 Albumin [Mass/Vol] 3.5 g/dL 3.5 - 5.0 g/dL [facility] ALP [Catalytic activity/Vol] 70 U/L 38 - 126 U/L [facility] ALT [Catalytic activity/Vol] 50 U/L High 0 - 49 U/L [facility] Anion gap [Moles/Vol] 10 mmol/L 3 - 13 mmol/L [facility] AST [Catalytic activity/Vol] 63 U/L High 15 - 46 U/L [facility] Bilirubin [Mass/Vol] 0.6 mg/dL 0.2 - 1 .3 mg/dL [facility] Calcium [Mass/Vol] 9.1 mg/dL 8.4 - 10. 4 mg/dL [facility] Chloride [Moles/Vol] 100 mmol/L 98 - 10 7 mmol/L [facility] CO2 [Moles/Vol] 24 mmol/L 22 - 30 mmol/L [facility] Creatinine [Mass/Vol] 0.66 mg/dL 0.66 - 1.25 mg/dL [facility] GFR/1.73 sq M.predicted MDRD (S/P/Bld) [Vol rate/Area] - PINF [facility] Comment on above: Calculation based on the Chronic Kidney Disease Epidemiology Collaboration (CKD-EPI) equation refit without adjustment for race Glucose [Mass/Vol] 111 mg/dL High 70 - 100 mg/dL [facility] Potassium [Moles/Vol] 3.6 mmol/L 3.5 - 5.1 mmol/L [facility] Protein [Mass/Vol] 6.5 g/dL 6.3 - 8.2 g/dL [facility] Sodium [Moles/Vol] 134 mmol/L Low 135 - 145 mmol/L [facility] Urea nitrogen [Mass/Vol] 11 mg/dL 9 - 20 mg/dL [facility] Lipaseon 10-27-2023 Lipase [Catalytic activity/Vol] 309 U/L High 23 - 300 U/L [facility] No Panel Informationon 10-27 Interpretation and review of laboratory results Abnormal [facility] CBC panel Auto (Bld)on 10-26 Erythrocyte distribution width (RBC) [Ratio] 13.3 % 11.5 - 14.5 % [facility] Hematocrit (Bld) [Volume fraction] 30.3 % Low 40.0 - 52.0 % [facility] Hemoglobin (Bld) [Mass/Vol] 10.2 g/dL Low 13.0 - 18.0 g/dL [facility] Interpretation and review of laboratory results Abnormal [facility] MCH (RBC) [Entitic mass] 33.8 pg 26.0 - 34.[address] [facility] MCHC (RBC) [Mass/Vol] 33.7 % 32.0 - 36.0 % [facility] MCV (RBC) [Entitic vol] 100.2 fL High 80.0 - 98.[address] [facility] Platelet mean volume (Bld) [Entitic vol] 8.6 fL 7.4 - 12.[address] [facility] Platelets (Bld) [#/Vol] 52 10*3/uL Low 140 - 440 10*3/uL [facility] RBC (Bld) [#/Vol] 3.02 10*6/uL Low 4.40 - 5.9 0 10*6/uL [facility] WBC (Bld) [#/Vol] 3.7 10*3/uL 3.6 - 10.7 10*3/uL [facility] Comprehensive metabolic 1998 panelon 10-26-2023 Albumin [Mass/Vol] 3.2 g/dL Low 3.5 - 5.0 g/dL [facility] ALP [Catalytic activity/Vol] 67 U/L 38 - 126 U/L [facility] ALT [Catalytic activity/Vol] 46 U/L 0 - 49 U/L [facility] Anion gap [Moles/Vol] 5 mmol/L 3 - 13 mmol/L [facility] AST [Catalytic activity/Vol] 61 U/L High 15 - 46 U/L [facility] Bilirubin [Mass/Vol] 0.6 mg/dL 0.2 - 1 .3 mg/dL [facility] Calcium [Mass/Vol] 8.8 mg/dL 8.4 - 10. 4 mg/dL [facility] Chloride [Moles/Vol] 100 mmol/L 98 - 10 7 mmol/L [facility] CO2 [Moles/Vol] 24 mmol/L 22 - 30 mmol/L [facility] Creatinine [Mass/Vol] 0.60 mg/dL Low 0.66 - 1.25 mg/dL [facility] GFR/1.73 sq M.predicted MDRD (S/P/Bld) [Vol rate/Area] - PINF [facility] Comment on above: Calculation based on the Chronic Kidney Disease Epidemiology Collaboration (CKD-EPI) equation refit without adjustment for race Glucose [Mass/Vol] 104 mg/dL High 70 - 100 mg/dL [facility] Potassium [Moles/Vol] 4.1 mmol/L 3.5 - 5.1 mmol/L [facility] Protein [Mass/Vol] 6.1 g/dL Low 6.3 - 8.2 g/dL [facility] Sodium [Moles/Vol] 130 mmol/L Low 135 - 145 mmol/L [facility] Urea nitrogen [Mass/Vol] 9 mg/dL 9 - 20 mg/dL [facility] Heparin-induced platelet ant ibodyOrdered By: Anastacia Stevenson on 10-26-2023 INTERPRETATION (PF4) Negative Negative [facility] PLATELET AB, HEPARIN 0.138 NINF [facility] No anti-platelet fac tor 4 IgG antibody is detected by JORDI assay. Heparin-induced thrombocytopenia (HIT) is unlikely, but should be excluded based on clinical factors. [facility] Lipaseon 10-26-2023 Lipase [Catalytic activity/Vol] 314 U/L High 23 - 300 U/L [facility] Magnesiumon 10-26-2023 Magnesium [Mass/Vol] 1.5 mg/dL Low 1.6 - 2 .3 mg/dL [facility] Magnesium [Mass/Vol]on 10-26 Interpretation and review of laboratory results Abnormal [facility] No Panel Informationon 10-26 Interpretation and review of laboratory results Abnormal [facility] CBC panel Auto (Bld)on 10-25 Erythrocyte distribution width (RBC) [Ratio] 13.2 % 11.5 - 14.5 % [facility] Hematocrit (Bld) [Volume fraction] 28.2 % Low 40.0 - 52.0 % [facility] Hemoglobin (Bld) [Mass/Vol] 9.8 g/dL Low 13.0 - 18.0 g/dL [facility] Interpretation and review of laboratory results Abnormal [facility] MCH (RBC) [Entitic mass] 34.4 pg High 26.0 - 34.[address] [facility] MCHC (RBC) [Mass/Vol] 34.6 % 32.0 - 36.0 % [facility] MCV (RBC) [Entitic vol] 99.3 fL High 80.0 - 98.[address] [facility] Platelet mean volume (Bld) [Entitic vol] 7.6 fL 7.4 - 12.[address] [facility] Platelets (Bld) [#/Vol] 40 10*3/uL Low 140 - 440 10*3/uL [facility] RBC (Bld) [#/Vol] 2.84 10*6/uL Low 4.40 - 5.9 0 10*6/uL [facility] WBC (Bld) [#/Vol] 3.3 10*3/uL Low 3.6 - 10.7 10*3/uL [facility] Comprehensive metabolic 1998 panelon 10-25-2023 Albumin [Mass/Vol] 3.1 g/dL Low 3.5 - 5.0 g/dL [facility] ALP [Catalytic activity/Vol] 64 U/L 38 - 126 U/L [facility] ALT [Catalytic activity/Vol] 45 U/L 0 - 49 U/L [facility] Anion gap [Moles/Vol] 7 mmol/L 3 - 13 mmol/L [facility] AST [Catalytic activity/Vol] 69 U/L High 15 - 46 U/L [facility] Bilirubin [Mass/Vol] 0.7 mg/dL 0.2 - 1 .3 mg/dL [facility] Calcium [Mass/Vol] 8.4 mg/dL 8.4 - 10. 4 mg/dL [facility] Chloride [Moles/Vol] 103 mmol/L 98 - 10 7 mmol/L [facility] CO2 [Moles/Vol] 22 mmol/L 22 - 30 mmol/L [facility] Creatinine [Mass/Vol] 0.60 mg/dL Low 0.66 - 1.25 mg/dL [facility] GFR/1.73 sq M.predicted MDRD (S/P/Bld) [Vol rate/Area] - PINF [facility] Comment on above: Calculation based on the Chronic Kidney Disease Epidemiology Collaboration (CKD-EPI) equation refit without adjustment for race Glucose [Mass/Vol] 94 mg/dL 70 - 100 mg/dL [facility] Potassium [Moles/Vol] 4.0 mmol/L 3.5 - 5.1 mmol/L [facility] Protein [Mass/Vol] 5.9 g/dL Low 6.3 - 8.2 g/dL [facility] Sodium [Moles/Vol] 131 mmol/L Low 135 - 145 mmol/L [facility] Urea nitrogen [Mass/Vol] 7 mg/dL Low 9 - 20 mg/dL [facility] Lipaseon 10-25-2023 Lipase [Catalytic activity/Vol] 321 U/L High 23 - 300 U/L [facility] Magnesiumon 10-25-2023 Magnesium [Mass/Vol] 1.4 mg/dL Low 1.6 - 2 .3 mg/dL [facility] No Panel Informationon 10-25 Interpretation and review of laboratory results Abnormal [facility] CBC panel Auto (Bld)on 10-24 Erythrocyte distribution width (RBC) [Ratio] 13.2 % 11.5 - 14.5 % [facility] Hematocrit (Bld) [Volume fraction] 33.7 % Low 40.0 - 52.0 % [facility] Hemoglobin (Bld) [Mass/Vol] 11.4 g/dL Low 13.0 - 18.0 g/dL [facility] Interpretation and review of laboratory results Abnormal [facility] MCH (RBC) [Entitic mass] 34.0 pg 26.0 - 34.[address] [facility] MCHC (RBC) [Mass/Vol] 33.8 % 32.0 - 36.0 % [facility] MCV (RBC) [Entitic vol] 100.7 fL High 80.0 - 98.[address] [facility] Platelet mean volume (Bld) [Entitic vol] 7.8 fL 7.4 - 12.[address] [facility] Platelets (Bld) [#/Vol] 37 10*3/uL Low 140 - 440 10*3/uL [facility] RBC (Bld) [#/Vol] 3.35 10*6/uL Low 4.40 - 5.9 0 10*6/uL [facility] WBC (Bld) [#/Vol] 3.0 10*3/uL Low 3.6 - 10.7 10*3/uL [facility] Comprehensive metabolic 1998 panelon 10-24-2023 Albumin [Mass/Vol] 3.8 g/dL 3.5 - 5.0 g/dL [facility] ALP [Catalytic activity/Vol] 84 U/L 38 - 126 U/L [facility] ALT [Catalytic activity/Vol] 65 U/L High 0 - 49 U/L [facility] Anion gap [Moles/Vol] 9 mmol/L 3 - 13 mmol/L [facility] AST [Catalytic activity/Vol] 112 U/L High 15 - 46 U/L [facility] Bilirubin [Mass/Vol] 1.7 mg/dL High 0.2 - 1 .3 mg/dL [facility] Calcium [Mass/Vol] 8.5 mg/dL 8.4 - 10. 4 mg/dL [facility] Chloride [Moles/Vol] 103 mmol/L 98 - 10 7 mmol/L [facility] CO2 [Moles/Vol] 19 mmol/L Low 22 - 30 mmol/L [facility] Creatinine [Mass/Vol] 0.59 mg/dL Low 0.66 - 1.25 mg/dL [facility] GFR/1.73 sq M.predicted MDRD (S/P/Bld) [Vol rate/Area] - PINF [facility] Comment on above: Calculation based on the Chronic Kidney Disease Epidemiology Collaboration (CKD-EPI) equation refit without adjustment for race Glucose [Mass/Vol] 89 mg/dL 70 - 100 mg/dL [facility] Interpretation and review of laboratory results Abnormal [facility] Potassium [Moles/Vol] 4.3 mmol/L 3.5 - 5.1 mmol/L [facility] Protein [Mass/Vol] 7.1 g/dL 6.3 - 8.2 g/dL [facility] Sodium [Moles/Vol] 131 mmol/L Low 135 - 145 mmol/L [facility] Urea nitrogen [Mass/Vol] 6 mg/dL Low 9 - 20 mg/dL [facility] Slightly Hemolyzed [facility] Lipaseon 10-24-2023 Lipase [Catalytic activity/Vol] 389 U/L High 23 - 300 U/L [facility] Lipase [Catalytic activity/V ol]on 10-24-2023 Interpretation and review of laboratory results Abnormal [facility] Magnesiumon 10-24-2023 Magnesium [Mass/Vol] 1.9 mg/dL 1.6 - 2 .3 mg/dL [facility] Magnesium [Mass/Vol]on 10-24 Interpretation and review of laboratory results Normal [facility] ANTI PLT FACTOR 4 ABon 10-23 Heparin induced platelet IgG Armani (S) [Interp] Negative Normal Negative [facility] Comment on above: Order Comment: Specadelaida garcia Type: BLOOD SPECIMEN Ordering Facility: [facility] Address: [place] [address] Result Comment: No a nti-platelet factor 4 IgG antibody is detected by JORDI assay. Heparin-induced thrombocytopenia (HIT) is unlikely, but should be excluded based on clinical factors. Performed By: #### P LATF4 #### [facility] CLIA [id number] [address] [place] [address] [place] Platelet factor 4 Qn (PPP) 0.138 OD Normal <0.400 [facility] Comment on above: Order Comment: Kel garcia Type: BLOOD SPECIMEN Ordering Facility: [facility] Address: [facility], [place] [address] Result Comment: Not calculated Performed By: #### P LATF4 #### [facility] CLIA [id number] [address] [place] [address] [place] CBC panel Auto (Bld)Ordered By: Daniel Allen on 10-23-2023 Erythrocyte distribution width (RBC) [Ratio] 13.3 % 11.5 - 14.5 % [facility] Hematocrit (Bld) [Volume fraction] 31.8 % Low 40.0 - 52.0 % [facility] Hemoglobin (Bld) [Mass/Vol] 11.0 g/dL Low 13.0 - 18.0 g/dL [facility] Interpretation and review of laboratory results Abnormal [facility] MCH (RBC) [Entitic mass] 34.0 pg 26.0 - 34.[address] [facility] MCHC (RBC) [Mass/Vol] 34.5 % 32.0 - 36.0 % [facility] MCV (RBC) [Entitic vol] 98.7 fL High 80.0 - 98.[address] [facility] Platelet mean volume (Bld) [Entitic vol] 8.2 fL 7.4 - 12.[address] [facility] Platelets (Bld) [#/Vol] 38 10*3/uL Low 140 - 440 10*3/uL [facility] RBC (Bld) [#/Vol] 3.23 10*6/uL Low 4.40 - 5.9 0 10*6/uL [facility] WBC (Bld) [#/Vol] 4.3 10*3/uL 3.6 - 10.7 10*3/uL [facility] Cobalamin (Vitamin B12) [Mas s/Vol]on 10-23-2023 Interpretation and review of laboratory results Normal [facility] Comprehensive metabolic 1998 panelOrdered By: Montrell Charles on 10-23-2023 Albumin [Mass/Vol] 2.7 g/dL Low 3.5 - 5.0 g/dL [facility] ALP [Catalytic activity/Vol] 56 U/L 38 - 126 U/L [facility] ALT [Catalytic activity/Vol] 41 U/L 0 - 49 U/L [facility] Anion gap [Moles/Vol] 7 mmol/L 3 - 13 mmol/L [facility] AST [Catalytic activity/Vol] 86 U/L High 15 - 46 U/L [facility] Bilirubin [Mass/Vol] 1.7 mg/dL High 0.2 - 1 .3 mg/dL [facility] Calcium [Mass/Vol] 6.4 mg/dL Low 8.4 - 10. 4 mg/dL [facility] Chloride [Moles/Vol] 107 mmol/L 98 - 10 7 mmol/L [facility] CO2 [Moles/Vol] 18 mmol/L Low 22 - 30 mmol/L [facility] Creatinine [Mass/Vol] 0.47 mg/dL Low 0.66 - 1.25 mg/dL [facility] GFR/1.73 sq M.predicted MDRD (S/P/Bld) [Vol rate/Area] - PINF [facility] Comment on above: Calculation based on the Chronic Kidney Disease Epidemiology Collaboration (CKD-EPI) equation refit without adjustment for race Glucose [Mass/Vol] 90 mg/dL 70 - 100 mg/dL [facility] Interpretation and review of laboratory results Abnormal [facility] Potassium [Moles/Vol] 2.7 mmol/L Low 3.5 - 5.1 mmol/L [facility] Protein [Mass/Vol] 5.1 g/dL Low 6.3 - 8.2 g/dL [facility] Sodium [Moles/Vol] 132 mmol/L Low 135 - 145 mmol/L [facility] Urea nitrogen [Mass/Vol] 7 mg/dL Low 9 - 20 mg/dL [facility] Ferritinon 10-23-2023 Ferritin [Mass/Vol] 1190 ng/mL High 18 - 464 ng/mL [facility] Ferritin [Mass/Vol]on 2023 Interpretation and review of laboratory results Abnormal [facility] Folateon 10-23-2023 Folate [Mass/Vol] 15.8 ng/mL 2.9 - PINF ng/mL [facility] Folate [Mass/Vol]on 10-23-19 Interpretation and review of laboratory results Normal [facility] Haptoglobinon 10-23-2023 Haptoglobin [Mass/Vol] 161.5 mg/dL 30.0 - 200.0 mg/dL [facility] Interpretation and review of laboratory results Normal [facility] Iron and Iron binding capaci ty panelon 10-23-2023 Interpretation and review of laboratory results Abnormal [facility] Iron [Mass/Vol] 62 ug/dL 49 - 181 ug/dL [facility] Iron binding capacity [Mass/Vol] 201 ug/dL Low 261 - 497 ug/dL [facility] Iron saturation [Mass fraction] 31 % 15 - 50 % [facility] LDH Lactate to pyruvate reac tion [Catalytic activity/Vol]on 10-23-2023 Interpretation and review of laboratory results Normal [facility] Lactate dehydrogenaseon LDH Lactate to pyruvate reaction [Catalytic activity/Vol] 231 U/L 120 - 246 U/L [facility] Lipaseon 10-23-2023 Lipase [Catalytic activity/Vol] 446 U/L High 23 - 300 U/L [facility] Lipase [Catalytic activity/V ol]on 10-23-2023 Interpretation and review of laboratory results Abnormal [facility] Magnesiumon 10-23-2023 Magnesium [Mass/Vol] 0.8 mg/dL Critically low 1.6 - 2.3 mg/dL [facility] Magnesium [Mass/Vol]on 10-23 Interpretation and review of laboratory results Abnormal [facility] No Panel Informationon 10-[address] [facility] Vitamin B12on 10-23-2023 Cobalamin (Vitamin B12) [Mass/Vol] 850 pg/mL 239 - 931 pg/mL [facility] CBC panel Auto (Bld)Ordered By: Sandy Nance on 10-22-2023 Erythrocyte distribution width (RBC) [Ratio] 13.2 % 11.5 - 14.5 % [facility] Hematocrit (Bld) [Volume fraction] 27.3 % Low 40.0 - 52.0 % [facility] Hemoglobin (Bld) [Mass/Vol] 9.1 g/dL Low 13.0 - 18.0 g/dL [facility] Interpretation and review of laboratory results Abnormal [facility] MCH (RBC) [Entitic mass] 33.6 pg 26.0 - 34.[address] [facility] MCHC (RBC) [Mass/Vol] 33.4 % 32.0 - 36.0 % [facility] MCV (RBC) [Entitic vol] 100.6 fL High 80.0 - 98.[address] [facility] Platelet mean volume (Bld) [Entitic vol] 7.8 fL 7.4 - 12.[address] [facility] Platelets (Bld) [#/Vol] 36 10*3/uL Low 140 - 440 10*3/uL [facility] RBC (Bld) [#/Vol] 2.71 10*6/uL Low 4.40 - 5.9 0 10*6/uL [facility] WBC (Bld) [#/Vol] 2.0 10*3/uL Low 3.6 - 10.7 10*3/uL [facility] Comprehensive metabolic 1998 panelon 10-22-2023 Albumin [Mass/Vol] 3.8 g/dL 3.5 - 5.0 g/dL [facility] ALP [Catalytic activity/Vol] 84 U/L 38 - 126 U/L [facility] ALT [Catalytic activity/Vol] 63 U/L High 0 - 49 U/L [facility] Anion gap [Moles/Vol] 11 mmol/L 3 - 13 mmol/L [facility] AST [Catalytic activity/Vol] 153 U/L High 15 - 46 U/L [facility] Bilirubin [Mass/Vol] 3.1 mg/dL High 0.2 - 1 .3 mg/dL [facility] Calcium [Mass/Vol] 8.1 mg/dL Low 8.4 - 10. 4 mg/dL [facility] Chloride [Moles/Vol] 95 mmol/L Low 98 - 10 7 mmol/L [facility] CO2 [Moles/Vol] 23 mmol/L 22 - 30 mmol/L [facility] Creatinine [Mass/Vol] 0.59 mg/dL Low 0.66 - 1.25 mg/dL [facility] GFR/1.73 sq M.predicted MDRD (S/P/Bld) [Vol rate/Area] - PINF [facility] Comment on above: Calculation based on the Chronic Kidney Disease Epidemiology Collaboration (CKD-EPI) equation refit without adjustment for race Glucose [Mass/Vol] 121 mg/dL High 70 - 100 mg/dL [facility] Interpretation and review of laboratory results Abnormal [facility] Potassium [Moles/Vol] 3.2 mmol/L Low 3.5 - 5.1 mmol/L [facility] Protein [Mass/Vol] 7.0 g/dL 6.3 - 8.2 g/dL [facility] Sodium [Moles/Vol] 129 mmol/L Low 135 - 145 mmol/L [facility] Urea nitrogen [Mass/Vol] 5 mg/dL Low 9 - 20 mg/dL [facility] Iron and Iron binding capaci ty panelon 10-22-2023 Interpretation and review of laboratory results Abnormal [facility] Iron [Mass/Vol] 62 ug/dL 49 - 181 ug/dL [facility] Iron binding capacity [Mass/Vol] 202 ug/dL Low 261 - 497 ug/dL [facility] Iron saturation [Mass fraction] 31 % 15 - 50 % [facility] Specimen slightly hemolyzed, interpret results with caution [facility] CBC W Auto Differential pane l (Bld)Ordered By: Philip Medrano on 10-21-2023 Erythrocyte distribution width (RBC) [Ratio] 13.8 % 11.5 - 14.5 % [facility] Hematocrit (Bld) [Volume fraction] 34.9 % Low 40.0 - 52.0 % [facility] Hemoglobin (Bld) [Mass/Vol] 12.0 g/dL Low 13.0 - 18.0 g/dL [facility] Interpretation and review of laboratory results Abnormal [facility] MCH (RBC) [Entitic mass] 33.9 pg 26.0 - 34.[address] [facility] MCHC (RBC) [Mass/Vol] 34.3 % 32.0 - 36.0 % [facility] MCV (RBC) [Entitic vol] 99.1 fL High 80.0 - 98.[address] [facility] Nucleated RBC/100 WBC (Bld) [Ratio] 0.1 % [facility] Platelet mean volume (Bld) [Entitic vol] 6.6 fL Low 7.4 - 12.[address] [facility] Platelets (Bld) [#/Vol] 51 10*3/uL Low 140 - 440 10*3/uL [facility] RBC (Bld) [#/Vol] 3.52 10*6/uL Low 4.40 - 5.9 0 10*6/uL [facility] WBC (Bld) [#/Vol] 4.6 10*3/uL 3.6 - 10.7 10*3/uL [facility] Lipaseon 10-21-2023 Lipase [Catalytic activity/Vol] 483 U/L High 23 - 300 U/L [facility] Lipase [Catalytic activity/V ol]on 10-21-2023 Interpretation and review of laboratory results Abnormal [facility] Manual differential performe d Ql (Bld)on 10-21-2023 Basophils (Bld) [#/Vol] 0.0 10*3/uL 0.0 - 0.2 10*3/uL [facility] Basophils Manual 1 [facility] Basophils/100 WBC (Bld) 1 % 0 - 2 % [facility] Cells Counted Total (Bld) [#] 100 {cells} [facility] Differential Method Automated differenti al reported after manual slide review [facility] Eosinophils (Bld) [#/Vol] 0.0 10*3/uL 0.0 - 0.5 10*3/uL [facility] Eosinophils Manual 1 0 - 1 [facility] Eosinophils/100 WBC (Bld) 1 % 1 - 6 % [facility] Leukocyte morphology finding Nom (Bld) Normal [facility] Lymphocytes (Bld) [#/Vol] 1.2 10*3/uL 1.0 - 4.3 10*3/uL [facility] Lymphocytes Manual 25 [facility] Lymphocytes/100 WBC (Bld) 25 % 20 - 40 % [facility] Monocytes (Bld) [#/Vol] 0.4 10*3/uL 0.0 - 0.8 10*3/uL [facility] Monocytes Manual 8 [facility] Monocytes/100 WBC (Bld) 8 % 2 - 10 % [facility] Neutrophils (Bld) [#/Vol] 3.0 10*3/uL 1.8 - 7.0 10*3/uL [facility] Neutrophils Manual 65 [facility] Platelet morphology finding Nom (Bld) Normal [facility] RBC morphology finding Nom (Bld) Normal [facility] Segmented neutrophils/100 WBC (Bld) 65 % 40 - 80 % [facility] WBC corrected for nucl RBC (Bld) [#/Vol] 4.6 10*3/uL 3.6 - 10.7 10*3/uL [facility] No Panel InformationOrdered By: Philip Medrano on 10-21-2023 [facility] Basic metabolic 1998 panelon 10-20-2023 Anion gap [Moles/Vol] 19 mmol/L High 3 - 13 mmol/L [facility] Calcium [Mass/Vol] 9.3 mg/dL 8.4 - 10. 4 mg/dL [facility] Chloride [Moles/Vol] 94 mmol/L Low 98 - 10 7 mmol/L [facility] CO2 [Moles/Vol] 19 mmol/L Low 22 - 30 mmol/L [facility] Creatinine [Mass/Vol] 0.71 mg/dL 0.66 - 1.25 mg/dL [facility] GFR/1.73 sq M.predicted MDRD (S/P/Bld) [Vol rate/Area] - PINF [facility] Comment on above: Calculation based on the Chronic Kidney Disease Epidemiology Collaboration (CKD-EPI) equation refit without adjustment for race Glucose [Mass/Vol] 92 mg/dL 70 - 100 mg/dL [facility] Potassium [Moles/Vol] 4.3 mmol/L 3.5 - 5.1 mmol/L [facility] Sodium [Moles/Vol] 133 mmol/L Low 135 - 145 mmol/L [facility] Urea nitrogen [Mass/Vol] 12 mg/dL 9 - 20 mg/dL [facility] CBC W Auto Differential pane l (Bld)Ordered By: Alen Beavers on 10-20-2023 Basophils (Bld) [#/Vol] 0.0 10*3/uL 0.0 - 0.2 10*3/uL [facility] Basophils/100 WBC (Bld) 0.9 % 0.0 - 2.0 % [facility] Eosinophils (Bld) [#/Vol] 0.0 10*3/uL 0.0 - 0.5 10*3/uL [facility] Eosinophils/100 WBC (Bld) 0.6 % Low 1.0 - 6.0 % [facility] Erythrocyte distribution width (RBC) [Ratio] 13.7 % 11.5 - 14.5 % [facility] Hematocrit (Bld) [Volume fraction] 38.3 % Low 40.0 - 52.0 % [facility] Hemoglobin (Bld) [Mass/Vol] 13.1 g/dL 13.0 - 18.0 g/dL [facility] Interpretation and review of laboratory results Abnormal [facility] Lymphocytes (Bld) [#/Vol] 1.7 10*3/uL 1.0 - 4.3 10*3/uL [facility] Lymphocytes/100 WBC (Bld) 32.5 % 20.0 - 40.0 % [facility] MCH (RBC) [Entitic mass] 33.5 pg 26.0 - 34.[address] [facility] MCHC (RBC) [Mass/Vol] 34.1 % 32.0 - 36.0 % [facility] MCV (RBC) [Entitic vol] 98.2 fL High 80.0 - 98.[address] [facility] Monocytes (Bld) [#/Vol] 0.4 10*3/uL 0.0 - 0.8 10*3/uL [facility] Monocytes/100 WBC (Bld) 6.8 % 2.0 - 10.0 % [facility] Neutrophils (Bld) [#/Vol] 3.1 10*3/uL 1.8 - 7.0 10*3/uL [facility] Neutrophils/100 WBC (Bld) 59.2 % 40.0 - 80.0 % [facility] Nucleated RBC/100 WBC (Bld) [Ratio] 0.2 % [facility] Platelet mean volume (Bld) [Entitic vol] 6.9 fL Low 7.4 - 12.[address] [facility] Platelets (Bld) [#/Vol] 76 10*3/uL Low 140 - 440 10*3/uL [facility] RBC (Bld) [#/Vol] 3.90 10*6/uL Low 4.40 - 5.9 0 10*6/uL [facility] WBC (Bld) [#/Vol] 5.2 10*3/uL 3.6 - 10.7 10*3/uL [facility] COVID-19, Flu A/B, and RSV C [facility] 10-20-2023 FLUAV RNA SHANE+probe Ql (Resp) Not detected Not Detected [facility] FLUBV RNA SHANE+probe Ql (Resp) Not detected Not Detected [facility] Interpretation and review of laboratory results Normal [facility] RSV RNA SHANE+probe Ql (Resp) Not detected Not Detected [facility] SARS-CoV-2 (COVID-19) RNA SHANE+probe Ql (Resp) Not detected Not Detected [facility] SARS-CoV-2 (COVID-19) RNA SHANE+probe Ql (Unsp spec) Methodology: real-time, RT-PCR The SARS-CoV-2, Flu A/B, and RSV Combo assay is intended for in vitro diagnostic use under the FDA Emergency Use Authorization (EUA). This test has not been FDA cleared or approved. In compliance with this authorization, please visit www.fda.gov/media/263146/ download or www.fda.gov/media/319400/ download to access the applicable information sheets. [facility] Comprehensive metabolic 1998 panelon 10-20-2023 Albumin [Mass/Vol] 3.7 g/dL 3.5 - 5.0 g/dL [facility] ALP [Catalytic activity/Vol] 80 U/L 38 - 126 U/L [facility] ALT [Catalytic activity/Vol] 71 U/L High 0 - 49 U/L [facility] Anion gap [Moles/Vol] 16 mmol/L High 3 - 13 mmol/L [facility] AST [Catalytic activity/Vol] 207 U/L High 15 - 46 U/L [facility] Bilirubin [Mass/Vol] 1.2 mg/dL 0.2 - 1 .3 mg/dL [facility] Calcium [Mass/Vol] 8.4 mg/dL 8.4 - 10. 4 mg/dL [facility] Chloride [Moles/Vol] 98 mmol/L 98 - 10 7 mmol/L [facility] CO2 [Moles/Vol] 20 mmol/L Low 22 - 30 mmol/L [facility] Creatinine [Mass/Vol] 0.74 mg/dL 0.66 - 1.25 mg/dL [facility] GFR/1.73 sq M.predicted MDRD (S/P/Bld) [Vol rate/Area] - PINF [facility] Comment on above: Calculation based on the Chronic Kidney Disease Epidemiology Collaboration (CKD-EPI) equation refit without adjustment for race Glucose [Mass/Vol] 70 mg/dL 70 - 100 mg/dL [facility] Potassium [Moles/Vol] 3.6 mmol/L 3.5 - 5.1 mmol/L [facility] Protein [Mass/Vol] 6.8 g/dL 6.3 - 8.2 g/dL [facility] Sodium [Moles/Vol] 133 mmol/L Low 135 - 145 mmol/L [facility] Urea nitrogen [Mass/Vol] 10 mg/dL 9 - 20 mg/dL [facility] Drug screen panel, emergency Ordered By: Hafsa Purcell on 10-20-2023 Amphetamines Screen method >1000 ng/mL Ql (U) Negative [facility] Barbiturates Screen method >200 ng/mL Ql (U) Negative [facility] Benzodiazepines Ql (U) Negative [facility] COCAINE METAB. SCREEN Negative [facility] Methadone Screen Ql (U) Negative [facility] Opiates Screen Ql (U) Negative [facility] oxyCODONE Ql (U) Negative [facility] Phencyclidine Ql (U) Negative [facility] The expected value f or all [...] is needed, request confirmation under separate order. [facility] ECG 12 leadon 10-20-2023 Heart rate 99 /min bpm [facility] P [place] [address] [facility] [place] Interval [address] [facility] QRS [place] -[address] [facility] QRSD Interval [address] [facility] QT Interval [address] [facility] QTC Interval [address] [facility] T Wave [place] [address] [facility] Sinus rhythm RBBB and LAFB No significant changes compared to previous Electronically Signed On 10-20-2023 18:25:24 EST by Khurram Bob CV Khurram Sinha MD - 10/20/2023 IMPRESSION: Sinus rhythm RBBB and LAFB No significant changes compared to previous Electronically Signed On 10-20-2023 18:25:24 EST by Khurram Bob [facility] Ethanol (Bld) [Mass/Vol]Orde red By: Lorin Carmona on 10-20-2023 Ethanol [Mass/Vol] 0.390 g/dL Critically high 0.000 - 0.010 g/dL [facility] Interpretation and review of laboratory results Abnormal [facility] Hepatic function 2000 panelo n 10-20-2023 Albumin [Mass/Vol] 4.6 g/dL 3.5 - 5.0 g/dL [facility] ALP [Catalytic activity/Vol] 105 U/L 38 - 126 U/L [facility] ALT [Catalytic activity/Vol] 85 U/L High 0 - 49 U/L [facility] AST [Catalytic activity/Vol] 250 U/L High 15 - 46 U/L [facility] Bilirubin [Mass/Vol] 1.4 mg/dL High 0.2 - 1 .3 mg/dL [facility] Bilirubin.conjugated [Mass/Vol] 0.0 mg/dL 0.0 - 0.3 mg/dL [facility] Protein [Mass/Vol] 8.2 g/dL 6.3 - 8.2 g/dL [facility] Lipaseon 10-20-2023 Lipase [Catalytic activity/Vol] 537 U/L High 23 - 300 U/L [facility] Lipase [Catalytic activity/Vol] 615 U/L High 23 - 300 U/L [facility] No Panel Informationon 10-20 Interpretation and review of laboratory results Abnormal [facility] Interpretation and review of laboratory results Abnormal [facility] Troponin Ion 10-20-2023 Troponin I.cardiac [Mass/Vol] ng/mL NINF - 0.034 ng/mL [facility] Troponin I.cardiac [Mass/Vol ]on 10-20-2023 Interpretation and review of laboratory results Normal [facility] Patients with high l evels of Biotin oral intake (ie >5 mg/day) may have falsely decreased Troponin levels. [facility] Interpretation and review of laboratory results Normal [facility] Patients with high l evels of Biotin oral intake (ie >5 mg/day) may have falsely decreased Troponin levels. [facility] Troponin, with Serial Reflex on 10-20-2023 Troponin I.cardiac [Mass/Vol] ng/mL NINF - 0.034 ng/mL [facility] Urinalysis complete panel (U )on 10-20-2023 Bilirubin Ql (U) Negative Negative mg/dL [facility] Clarity (U) Clear Clear [facility] Color (U) Light Yellow Lt. Yellow [facility] Glucose Ql (U) Normal Normal (<70) mg/dL [facility] Hemoglobin Ql (U) Negative Negative mg/dL [facility] Interpretation and review of laboratory results Normal [facility] Ketones (U) [Mass/Vol] Negative Negat zenia mg/dL [facility] Leukocyte esterase Test strip Ql (U) Negative Negative Emma/uL [facility] Nitrite Ql (U) Negative Negative [facility] pH (U) 5.0 [pH] 5.0 - 8.[address] [facility] Protein (U) [Mass/Vol] Negative Negat zenia mg/dL [facility] Specific gravity (U) [Rel density] 1.006 1.005 - 1.[address] [facility] Urobilinogen (U) [Mass/Vol] Normal Normal (0-1) mg/dL [facility] XR Chest Single viewon 10-20 FINDINGS AND IMPRESS ION: SUPPORT DEVICES: None OSSEOUS STRUCTURES: Unremarkable. HEART AND MEDIASTINUM: The cardiomediastinal silhouette appears unchanged from the prior exam. LUNGS AND PLEURA: The lungs are clear. No sizable pleural effusion. Report Dictated on Electronically Signed By: Richie Morrison MD Electronically Signed Date/Time: 10/20/2023 5:24 PM [facility] [employer] Patient Name: WOODY NI : 1960 Exam Date/Time: 10/20/2023 17:10 Procedure: XR CHEST 1 VIEW Ordering Provider: BOB KEVIN Reason For Exam: ABDOMINAL PAIN CHEST CLINICAL INDICATION: Abdominal pain TECHNIQUE: AP portable chest COMPARISON: 06/25/2023 [facility] Richie Morrison MD - 10/20/2023 [...] Signed Date/Time: 10/20/2023 5:24 PM EST [facility] Radiology Study observation (narrative) [facility] XR Chest Single viewOrdered By: Richie Morrison on 10-20-2023 [facility] Work Phone: Basic metabolic 1998 panelon 07-05-2023 Anion gap [Moles/Vol] 5 mmol/L 3 - 13 mmol/L [facility] Calcium [Mass/Vol] 9.3 mg/dL 8.4 - 10. 4 mg/dL [facility] Chloride [Moles/Vol] 100 mmol/L 98 - 10 7 mmol/L [facility] CO2 [Moles/Vol] 25 mmol/L 22 - 30 mmol/L [facility] Creatinine [Mass/Vol] 0.87 mg/dL 0.66 - 1.25 mg/dL [facility] GFR/1.73 sq M.predicted MDRD (S/P/Bld) [Vol rate/Area] - PINF [facility] Comment on above: Calculation based on the Chronic Kidney Disease Epidemiology Collaboration (CKD-EPI) equation refit without adjustment for race Glucose [Mass/Vol] 88 mg/dL 70 - 100 mg/dL [facility] Interpretation and review of laboratory results Abnormal [facility] Potassium [Moles/Vol] 4.4 mmol/L 3.5 - 5.1 mmol/L [facility] Sodium [Moles/Vol] 130 mmol/L Low 135 - 145 mmol/L [facility] Urea nitrogen [Mass/Vol] 11 mg/dL 9 - 20 mg/dL [facility] CBC panel Auto (Bld)Ordered By: Daniel Allen on 07-05-2023 Erythrocyte distribution width (RBC) [Ratio] 14.8 % High 11.5 - 14.5 % [facility] Hematocrit (Bld) [Volume fraction] 29.4 % Low 40.0 - 52.0 % [facility] Hemoglobin (Bld) [Mass/Vol] 10.1 g/dL Low 13.0 - 18.0 g/dL [facility] Interpretation and review of laboratory results Abnormal [facility] MCH (RBC) [Entitic mass] 33.5 pg 26.0 - 34.[address] [facility] MCHC (RBC) [Mass/Vol] 34.3 % 32.0 - 36.0 % [facility] MCV (RBC) [Entitic vol] 97.8 fL 80.0 - 98.[address] [facility] Platelet mean volume (Bld) [Entitic vol] 7.4 fL 7.4 - 12.[address] [facility] Platelets (Bld) [#/Vol] 219 10*3/uL 140 - 440 10*3/uL [facility] RBC (Bld) [#/Vol] 3.01 10*6/uL Low 4.40 - 5.9 0 10*6/uL [facility] WBC (Bld) [#/Vol] 4.8 10*3/uL 3.6 - 10.7 10*3/uL [facility] Basic metabolic 1998 panelon 07-04-2023 Anion gap [Moles/Vol] 7 mmol/L 3 - 13 mmol/L [facility] Calcium [Mass/Vol] 9.5 mg/dL 8.4 - 10. 4 mg/dL [facility] Chloride [Moles/Vol] 100 mmol/L 98 - 10 7 mmol/L [facility] CO2 [Moles/Vol] 25 mmol/L 22 - 30 mmol/L [facility] Creatinine [Mass/Vol] 0.97 mg/dL 0.66 - 1.25 mg/dL [facility] GFR/1.73 sq M.predicted MDRD (S/P/Bld) [Vol rate/Area] 87.7 mL/min/{1.73_m2} - PINF [facility] Comment on above: Calculation based on the Chronic Kidney Disease Epidemiology Collaboration (CKD-EPI) equation refit without adjustment for race Glucose [Mass/Vol] 107 mg/dL High 70 - 100 mg/dL [facility] [facility] Interpretation and review of laboratory results Abnormal [facility] Potassium [Moles/Vol] 4.8 mmol/L 3.5 - 5.1 mmol/L [facility] Sodium [Moles/Vol] 132 mmol/L Low 135 - 145 mmol/L [facility] Urea nitrogen [Mass/Vol] 12 mg/dL 9 - 20 mg/dL [facility] Anion gap [Moles/Vol] 8 mmol/L 3 - 13 mmol/L [facility] Calcium [Mass/Vol] 8.7 mg/dL 8.4 - 10. 4 mg/dL [facility] Chloride [Moles/Vol] 102 mmol/L 98 - 10 7 mmol/L [facility] CO2 [Moles/Vol] 20 mmol/L Low 22 - 30 mmol/L [facility] Creatinine [Mass/Vol] 0.90 mg/dL 0.66 - 1.25 mg/dL [facility] GFR/1.73 sq M.predicted MDRD (S/P/Bld) [Vol rate/Area] - [facility] Comment on above: Calculation based on the Chronic Kidney Disease Epidemiology Collaboration (CKD-EPI) equation refit without adjustment for race Glucose [Mass/Vol] 140 mg/dL High 70 - 100 mg/dL [facility] Interpretation and review of laboratory results Abnormal [facility] Potassium [Moles/Vol] 4.2 mmol/L 3.5 - 5.1 mmol/L [facility] Sodium [Moles/Vol] 130 mmol/L Low 135 - 145 mmol/L [facility] Urea nitrogen [Mass/Vol] 8 mg/dL Low 9 - 20 mg/dL [facility] Anion gap [Moles/Vol] 3 mmol/L 3 - 13 mmol/L [facility] Calcium [Mass/Vol] 8.9 mg/dL 8.4 - 10. 4 mg/dL [facility] Chloride [Moles/Vol] 103 mmol/L 98 - 10 7 mmol/L [facility] CO2 [Moles/Vol] 24 mmol/L 22 - 30 mmol/L [facility] Creatinine [Mass/Vol] 0.85 mg/dL 0.66 - 1.25 mg/dL [facility] GFR/1.73 sq M.predicted MDRD (S/P/Bld) [Vol rate/Area] - [facility] Comment on above: Calculation based on the Chronic Kidney Disease Epidemiology Collaboration (CKD-EPI) equation refit without adjustment for race Glucose [Mass/Vol] 98 mg/dL 70 - 100 mg/dL [facility] Interpretation and review of laboratory results Abnormal [facility] Potassium [Moles/Vol] 4.5 mmol/L 3.5 - 5.1 mmol/L [facility] Sodium [Moles/Vol] 130 mmol/L Low 135 - 145 mmol/L [facility] Urea nitrogen [Mass/Vol] 10 mg/dL 9 - 20 mg/dL [facility] CBC panel Auto (Bld)on 07-04 Erythrocyte distribution width (RBC) [Ratio] 14.9 % High 11.5 - 14.5 % [facility] Hematocrit (Bld) [Volume fraction] 28.1 % Low 40.0 - 52.0 % [facility] Hemoglobin (Bld) [Mass/Vol] 9.5 g/dL Low 13.0 - 18.0 g/dL [facility] Interpretation and review of laboratory results Abnormal [facility] MCH (RBC) [Entitic mass] 33.2 pg 26.0 - 34.[address] [facility] MCHC (RBC) [Mass/Vol] 33.9 % 32.0 - 36.0 % [facility] MCV (RBC) [Entitic vol] 98.0 fL 80.0 - 98.[address] [facility] Platelet mean volume (Bld) [Entitic vol] 7.5 fL 7.4 - 12.[address] [facility] Platelets (Bld) [#/Vol] 190 10*3/uL 140 - 440 10*3/uL [facility] RBC (Bld) [#/Vol] 2.86 10*6/uL Low 4.40 - 5.9 0 10*6/uL [facility] WBC (Bld) [#/Vol] 3.2 10*3/uL Low 3.6 - 10.7 10*3/uL [facility] Basic metabolic 1998 panelon 07-03-2023 Anion gap [Moles/Vol] 6 mmol/L 3 - 13 mmol/L [facility] Calcium [Mass/Vol] 9.1 mg/dL 8.4 - 10. 4 mg/dL [facility] Chloride [Moles/Vol] 103 mmol/L 98 - 10 7 mmol/L [facility] CO2 [Moles/Vol] 23 mmol/L 22 - 30 mmol/L [facility] Creatinine [Mass/Vol] 0.82 mg/dL 0.66 - 1.25 mg/dL [facility] GFR/1.73 sq M.predicted MDRD (S/P/Bld) [Vol rate/Area] - [facility] Comment on above: Calculation based on the Chronic Kidney Disease Epidemiology Collaboration (CKD-EPI) equation refit without adjustment for race Glucose [Mass/Vol] 112 mg/dL High 70 - 100 mg/dL [facility] Interpretation and review of laboratory results Abnormal [facility] Potassium [Moles/Vol] 4.5 mmol/L 3.5 - 5.1 mmol/L [facility] Sodium [Moles/Vol] 131 mmol/L Low 135 - 145 mmol/L [facility] Urea nitrogen [Mass/Vol] 9 mg/dL 9 - 20 mg/dL [facility] Anion gap [Moles/Vol] 6 mmol/L 3 - 13 mmol/L [facility] Calcium [Mass/Vol] 9.4 mg/dL 8.4 - 10. 4 mg/dL [facility] Chloride [Moles/Vol] 97 mmol/L Low 98 - 10 7 mmol/L [facility] CO2 [Moles/Vol] 24 mmol/L 22 - 30 mmol/L [facility] Creatinine [Mass/Vol] 0.85 mg/dL 0.66 - 1.25 mg/dL [facility] GFR/1.73 sq M.predicted MDRD (S/P/Bld) [Vol rate/Area] - [facility] Comment on above: Calculation based on the Chronic Kidney Disease Epidemiology Collaboration (CKD-EPI) equation refit without adjustment for race Glucose [Mass/Vol] 148 mg/dL High 70 - 100 mg/dL [facility] Interpretation and review of laboratory results Abnormal [facility] Potassium [Moles/Vol] 4.5 mmol/L 3.5 - 5.1 mmol/L [facility] Sodium [Moles/Vol] 127 mmol/L Low 135 - 145 mmol/L [facility] Urea nitrogen [Mass/Vol] 8 mg/dL Low 9 - 20 mg/dL [facility] Anion gap [Moles/Vol] 7 mmol/L 3 - 13 mmol/L [facility] Calcium [Mass/Vol] 9.2 mg/dL 8.4 - 10. 4 mg/dL [facility] Chloride [Moles/Vol] 98 mmol/L 98 - 10 7 mmol/L [facility] CO2 [Moles/Vol] 23 mmol/L 22 - 30 mmol/L [facility] Creatinine [Mass/Vol] 0.85 mg/dL 0.66 - 1.25 mg/dL [facility] GFR/1.73 sq M.predicted MDRD (S/P/Bld) [Vol rate/Area] - [facility] Comment on above: Calculation based on the Chronic Kidney Disease Epidemiology Collaboration (CKD-EPI) equation refit without adjustment for race Glucose [Mass/Vol] 137 mg/dL High 70 - 100 mg/dL [facility] Interpretation and review of laboratory results Abnormal [facility] Potassium [Moles/Vol] 4.4 mmol/L 3.5 - 5.1 mmol/L [facility] Sodium [Moles/Vol] 127 mmol/L Low 135 - 145 mmol/L [facility] Urea nitrogen [Mass/Vol] 6 mg/dL Low 9 - 20 mg/dL [facility] Anion gap [Moles/Vol] 6 mmol/L 3 - 13 mmol/L [facility] Calcium [Mass/Vol] 9.0 mg/dL 8.4 - 10. 4 mg/dL [facility] Chloride [Moles/Vol] 98 mmol/L 98 - 10 7 mmol/L [facility] CO2 [Moles/Vol] 22 mmol/L 22 - 30 mmol/L [facility] Creatinine [Mass/Vol] 0.82 mg/dL 0.66 - 1.25 mg/dL [facility] GFR/1.73 sq M.predicted MDRD (S/P/Bld) [Vol rate/Area] - [facility] Comment on above: Calculation based on the Chronic Kidney Disease Epidemiology Collaboration (CKD-EPI) equation refit without adjustment for race Glucose [Mass/Vol] 122 mg/dL High 70 - 100 mg/dL [facility] Interpretation and review of laboratory results Abnormal [facility] Potassium [Moles/Vol] 3.9 mmol/L 3.5 - 5.1 mmol/L [facility] Sodium [Moles/Vol] 126 mmol/L Low 135 - 145 mmol/L [facility] Urea nitrogen [Mass/Vol] 7 mg/dL Low 9 - 20 mg/dL [facility] Basic metabolic 1998 panelon 07-02-2023 Anion gap [Moles/Vol] 6 mmol/L 3 - 13 mmol/L [facility] Calcium [Mass/Vol] 8.9 mg/dL 8.4 - 10. 4 mg/dL [facility] Chloride [Moles/Vol] 97 mmol/L Low 98 - 10 7 mmol/L [facility] CO2 [Moles/Vol] 23 mmol/L 22 - 30 mmol/L [facility] Creatinine [Mass/Vol] 0.80 mg/dL 0.66 - 1.25 mg/dL [facility] GFR/1.73 sq M.predicted MDRD (S/P/Bld) [Vol rate/Area] - [facility] Comment on above: Calculation based on the Chronic Kidney Disease Epidemiology Collaboration (CKD-EPI) equation refit without adjustment for race Glucose [Mass/Vol] 138 mg/dL High 70 - 100 mg/dL [facility] Interpretation and review of laboratory results Abnormal [facility] Potassium [Moles/Vol] 3.9 mmol/L 3.5 - 5.1 mmol/L [facility] Sodium [Moles/Vol] 127 mmol/L Low 135 - 145 mmol/L [facility] Urea nitrogen [Mass/Vol] 8 mg/dL Low 9 - 20 mg/dL [facility] Anion gap [Moles/Vol] 5 mmol/L 3 - 13 mmol/L [facility] Calcium [Mass/Vol] 8.5 mg/dL 8.4 - 10. 4 mg/dL [facility] Chloride [Moles/Vol] 101 mmol/L 98 - 10 7 mmol/L [facility] CO2 [Moles/Vol] 23 mmol/L 22 - 30 mmol/L [facility] Creatinine [Mass/Vol] 0.92 mg/dL 0.66 - 1.25 mg/dL [facility] GFR/1.73 sq M.predicted MDRD (S/P/Bld) [Vol rate/Area] - [facility] Comment on above: Calculation based on the Chronic Kidney Disease Epidemiology Collaboration (CKD-EPI) equation refit without adjustment for race Glucose [Mass/Vol] 102 mg/dL High 70 - 100 mg/dL [facility] Interpretation and review of laboratory results Abnormal [facility] Potassium [Moles/Vol] 3.6 mmol/L 3.5 - 5.1 mmol/L [facility] Sodium [Moles/Vol] 130 mmol/L Low 135 - 145 mmol/L [facility] Urea nitrogen [Mass/Vol] 14 mg/dL 9 - 20 mg/dL [facility] CBC panel Auto (Bld)Ordered By: Sandy Nance on 07-02-2023 Erythrocyte distribution width (RBC) [Ratio] 15.3 % High 11.5 - 14.5 % [facility] Hematocrit (Bld) [Volume fraction] 29.2 % Low 40.0 - 52.0 % [facility] Hemoglobin (Bld) [Mass/Vol] 10.4 g/dL Low 13.0 - 18.0 g/dL [facility] Interpretation and review of laboratory results Abnormal [facility] MCH (RBC) [Entitic mass] 34.2 pg High 26.0 - 34.[address] [facility] MCHC (RBC) [Mass/Vol] 35.5 % 32.0 - 36.0 % [facility] MCV (RBC) [Entitic vol] 96.2 fL 80.0 - 98.[address] [facility] Platelet mean volume (Bld) [Entitic vol] 7.0 fL Low 7.4 - 12.[address] [facility] Platelets (Bld) [#/Vol] 197 10*3/uL 140 - 440 10*3/uL [facility] RBC (Bld) [#/Vol] 3.03 10*6/uL Low 4.40 - 5.9 0 10*6/uL [facility] WBC (Bld) [#/Vol] 3.3 10*3/uL Low 3.6 - 10.7 10*3/uL [facility] Comprehensive metabolic 1998 panelon 07-02-2023 Albumin [Mass/Vol] 3.7 g/dL 3.5 - 5.0 g/dL [facility] ALP [Catalytic activity/Vol] 87 U/L 38 - 126 U/L [facility] ALT [Catalytic activity/Vol] 28 U/L 0 - 49 U/L [facility] Anion gap [Moles/Vol] 5 mmol/L 3 - 13 mmol/L [facility] AST [Catalytic activity/Vol] 46 U/L 15 - 46 U/L [facility] Bilirubin [Mass/Vol] 0.8 mg/dL 0.2 - 1 .3 mg/dL [facility] Calcium [Mass/Vol] 9.1 mg/dL 8.4 - 10. 4 mg/dL [facility] Chloride [Moles/Vol] 100 mmol/L 98 - 10 7 mmol/L [facility] CO2 [Moles/Vol] 23 mmol/L 22 - 30 mmol/L [facility] Creatinine [Mass/Vol] 0.97 mg/dL 0.66 - 1.25 mg/dL [facility] GFR/1.73 sq M.predicted MDRD (S/P/Bld) [Vol rate/Area] 87.7 mL/min/{1.73_m2} - [facility] Comment on above: Calculation based on the Chronic Kidney Disease Epidemiology Collaboration (CKD-EPI) equation refit without adjustment for race Glucose [Mass/Vol] 133 mg/dL High 70 - 100 mg/dL [facility] Interpretation and review of laboratory results Abnormal [facility] Potassium [Moles/Vol] 3.9 mmol/L 3.5 - 5.1 mmol/L [facility] Protein [Mass/Vol] 6.5 g/dL 6.3 - 8.2 g/dL [facility] Sodium [Moles/Vol] 127 mmol/L Low 135 - 145 mmol/L [facility] Urea nitrogen [Mass/Vol] 13 mg/dL 9 - 20 mg/dL [facility] Basic metabolic 1998 panelon 07-01-2023 Anion gap [Moles/Vol] 6 mmol/L 3 - 13 mmol/L [facility] Calcium [Mass/Vol] 8.6 mg/dL 8.4 - 10. 4 mg/dL [facility] Chloride [Moles/Vol] 99 mmol/L 98 - 10 7 mmol/L [facility] CO2 [Moles/Vol] 22 mmol/L 22 - 30 mmol/L [facility] Creatinine [Mass/Vol] 1.06 mg/dL 0.66 - 1.25 mg/dL [facility] GFR/1.73 sq M.predicted MDRD (S/P/Bld) [Vol rate/Area] 78.9 mL/min/{1.73_m2} - [facility] Comment on above: Calculation based on the Chronic Kidney Disease Epidemiology Collaboration (CKD-EPI) equation refit without adjustment for race Glucose [Mass/Vol] 133 mg/dL High 70 - 100 mg/dL [facility] Interpretation and review of laboratory results Abnormal [facility] Potassium [Moles/Vol] 3.8 mmol/L 3.5 - 5.1 mmol/L [facility] Sodium [Moles/Vol] 128 mmol/L Low 135 - 145 mmol/L [facility] Urea nitrogen [Mass/Vol] 15 mg/dL 9 - 20 mg/dL [facility] Anion gap [Moles/Vol] 8 mmol/L 3 - 13 mmol/L [facility] Calcium [Mass/Vol] 8.7 mg/dL 8.4 - 10. 4 mg/dL [facility] Chloride [Moles/Vol] 99 mmol/L 98 - 10 7 mmol/L [facility] CO2 [Moles/Vol] 21 mmol/L Low 22 - 30 mmol/L [facility] Creatinine [Mass/Vol] 1.08 mg/dL 0.66 - 1.25 mg/dL [facility] GFR/1.73 sq M.predicted MDRD (S/P/Bld) [Vol rate/Area] 77.1 mL/min/{1.73_m2} - [facility] Comment on above: Calculation based on the Chronic Kidney Disease Epidemiology Collaboration (CKD-EPI) equation refit without adjustment for race Glucose [Mass/Vol] 104 mg/dL High 70 - 100 mg/dL [facility] Interpretation and review of laboratory results Abnormal [facility] Potassium [Moles/Vol] 4.1 mmol/L 3.5 - 5.1 mmol/L [facility] Sodium [Moles/Vol] 128 mmol/L Low 135 - 145 mmol/L [facility] Urea nitrogen [Mass/Vol] 14 mg/dL 9 - 20 mg/dL [facility] Anion gap [Moles/Vol] 9 mmol/L 3 - 13 mmol/L [facility] Calcium [Mass/Vol] 8.6 mg/dL 8.4 - 10. 4 mg/dL [facility] Chloride [Moles/Vol] 98 mmol/L 98 - 10 7 mmol/L [facility] CO2 [Moles/Vol] 21 mmol/L Low 22 - 30 mmol/L [facility] Creatinine [Mass/Vol] 1.04 mg/dL 0.66 - 1.25 mg/dL [facility] GFR/1.73 sq M.predicted MDRD (S/P/Bld) [Vol rate/Area] 80.7 mL/min/{1.73_m2} - [facility] Comment on above: Calculation based on the Chronic Kidney Disease Epidemiology Collaboration (CKD-EPI) equation refit without adjustment for race Glucose [Mass/Vol] 78 mg/dL 70 - 100 mg/dL [facility] Interpretation and review of laboratory results Abnormal [facility] Potassium [Moles/Vol] 4.5 mmol/L 3.5 - 5.1 mmol/L [facility] Sodium [Moles/Vol] 128 mmol/L Low 135 - 145 mmol/L [facility] Urea nitrogen [Mass/Vol] 11 mg/dL 9 - 20 mg/dL [facility] CBC W Auto Differential pane l (Bld)Ordered By: Philip Medrano on 07-01-2023 Basophils (Bld) [#/Vol] 0.0 10*3/uL 0.0 - 0.2 10*3/uL [facility] Basophils/100 WBC (Bld) 0.4 % 0.0 - 2.0 % [facility] Eosinophils (Bld) [#/Vol] 0.1 10*3/uL 0.0 - 0.5 10*3/uL [facility] Eosinophils/100 WBC (Bld) 1.1 % 1.0 - 6.0 % [facility] Erythrocyte distribution width (RBC) [Ratio] 15.1 % High 11.5 - 14.5 % [facility] Hematocrit (Bld) [Volume fraction] 34.1 % Low 40.0 - 52.0 % [facility] Hemoglobin (Bld) [Mass/Vol] 12.2 g/dL Low 13.0 - 18.0 g/dL [facility] Interpretation and review of laboratory results Abnormal [facility] Lymphocytes (Bld) [#/Vol] 1.2 10*3/uL 1.0 - 4.3 10*3/uL [facility] Lymphocytes/100 WBC (Bld) 22.5 % 20.0 - 40.0 % [facility] MCH (RBC) [Entitic mass] 33.8 pg 26.0 - 34.0 pg [facility] MCHC (RBC) [Mass/Vol] 35.7 % 32.0 - 36.0 % [facility] MCV (RBC) [Entitic vol] 94.7 fL 80.0 - 98.0 fL [facility] Monocytes (Bld) [#/Vol] 0.8 10*3/uL 0.0 - 0.8 10*3/uL [facility] Monocytes/100 WBC (Bld) 14.8 % High 2.0 - 10.0 % [facility] Neutrophils (Bld) [#/Vol] 3.1 10*3/uL 1.8 - 7.0 10*3/uL [facility] Neutrophils/100 WBC (Bld) 61.2 % 40.0 - 80.0 % [facility] Nucleated RBC/100 WBC (Bld) [Ratio] 0.0 % [facility] Platelet mean volume (Bld) [Entitic vol] 7.2 fL Low 7.4 - 12.[address] [facility] Platelets (Bld) [#/Vol] 242 10*3/uL 140 - 440 10*3/uL [facility] RBC (Bld) [#/Vol] 3.60 10*6/uL Low 4.40 - 5.9 0 10*6/uL [facility] WBC (Bld) [#/Vol] 5.1 10*3/uL 3.6 - 10.7 10*3/uL [facility] Comprehensive metabolic 1998 panelOrdered By: Montrell Charles on 07-01-2023 Albumin [Mass/Vol] 4.1 g/dL 3.5 - 5.0 g/dL [facility] ALP [Catalytic activity/Vol] 92 U/L 38 - 126 U/L [facility] ALT [Catalytic activity/Vol] 40 U/L 0 - 49 U/L [facility] Anion gap [Moles/Vol] 13 mmol/L 3 - 13 mmol/L [facility] AST [Catalytic activity/Vol] 73 U/L High 15 - 46 U/L [facility] Bilirubin [Mass/Vol] 0.7 mg/dL 0.2 - 1 .3 mg/dL [facility] Calcium [Mass/Vol] 8.9 mg/dL 8.4 - 10. 4 mg/dL [facility] Chloride [Moles/Vol] 95 mmol/L Low 98 - 10 7 mmol/L [facility] CO2 [Moles/Vol] 19 mmol/L Low 22 - 30 mmol/L [facility] Creatinine [Mass/Vol] 1.19 mg/dL 0.66 - 1.25 mg/dL [facility] GFR/1.73 sq M.predicted MDRD (S/P/Bld) [Vol rate/Area] 68.6 mL/min/{1.73_m2} - [facility] Comment on above: Calculation based on the Chronic Kidney Disease Epidemiology Collaboration (CKD-EPI) equation refit without adjustment for race Glucose [Mass/Vol] 75 mg/dL 70 - 100 mg/dL [facility] Interpretation and review of laboratory results Abnormal [facility] Potassium [Moles/Vol] 4.0 mmol/L 3.5 - 5.1 mmol/L [facility] Protein [Mass/Vol] 7.0 g/dL 6.3 - 8.2 g/dL [facility] Sodium [Moles/Vol] 128 mmol/L Low 135 - 145 mmol/L [facility] Urea nitrogen [Mass/Vol] 10 mg/dL 9 - 20 mg/dL [facility] Laboratory - Chemistry and C hemistry - challengeon 07-01-2023 Sodium (24H U) [Mass/Vol] 5 mmol/L Low 30 - 90 mmol/L [facility] No Panel InformationOrdered By: Sergio Chamberlain on 07-01-2023 Interpretation and review of laboratory results Abnormal [facility] OSMOLALITY, URINE 135 Low [facility] No Panel Informationon 07-01 Interpretation and review of laboratory results Abnormal [facility] CBC W Auto Differential pane l (Bld)Ordered By: Maricruz Mesa on 06-30-2023 Basophils (Bld) [#/Vol] 0.0 10*3/uL 0.0 - 0.2 10*3/uL [facility] Basophils/100 WBC (Bld) 0.3 % 0.0 - 2.0 % [facility] Eosinophils (Bld) [#/Vol] 0.1 10*3/uL 0.0 - 0.5 10*3/uL [facility] Eosinophils/100 WBC (Bld) 1.5 % 1.0 - 6.0 % [facility] Erythrocyte distribution width (RBC) [Ratio] 15.2 % High 11.5 - 14.5 % [facility] Hematocrit (Bld) [Volume fraction] 36.9 % Low 40.0 - 52.0 % [facility] Hemoglobin (Bld) [Mass/Vol] 13.0 g/dL 13.0 - 18.0 g/dL [facility] Interpretation and review of laboratory results Abnormal [facility] Lymphocytes (Bld) [#/Vol] 2.1 10*3/uL 1.0 - 4.3 10*3/uL [facility] Lymphocytes/100 WBC (Bld) 31.6 % 20.0 - 40.0 % [facility] MCH (RBC) [Entitic mass] 33.5 pg 26.0 - 34.[address] [facility] MCHC (RBC) [Mass/Vol] 35.3 % 32.0 - 36.0 % [facility] MCV (RBC) [Entitic vol] 95.0 fL 80.0 - 98.0 fL [facility] Monocytes (Bld) [#/Vol] 0.7 10*3/uL 0.0 - 0.8 10*3/uL [facility] Monocytes/100 WBC (Bld) 10.9 % High 2.0 - 10.0 % [facility] Neutrophils (Bld) [#/Vol] 3.6 10*3/uL 1.8 - 7.0 10*3/uL [facility] Neutrophils/100 WBC (Bld) 55.7 % 40.0 - 80.0 % [email or web address] Nucleated RBC/100 WBC (Bld) [Ratio] 0.2 % [facility] Platelet mean volume (Bld) [Entitic vol] 6.9 fL Low 7.4 - 12.4 fL [facility] Platelets (Bld) [#/Vol] 256 10*3/uL 140 - 440 10*3/uL [facility] RBC (Bld) [#/Vol] 3.89 10*6/uL Low 4.40 - 5.9 0 10*6/uL [facility] WBC (Bld) [#/Vol] 6.5 10*3/uL 3.6 - 10.7 10*3/uL [facility] CT Cervical spine WO contras ton 06-30-2023 [facility] 1960 [id number] Exam Date/Time: 06/30/2023 17:49 Procedure: CT CERVICAL [...] canal encroachment. Paraspinal soft tissues grossly unremarkable. [facility] Dallas Hanks MD - 06/30/2023 [...] Electronically Signed Date/Time: 06/30/2023 5:58 PM EDT [email or web address] Head WO contraston 2022 Patient Name: [...] canal encroachment. Paraspinal soft tissues grossly unremarkable. [facility] Dallas Hanks MD - 06/30/2023 [...] Signed Date/Time: 06/30/2023 5:58 PM EDT [facility] Comprehensive metabolic 1998 panelOrdered By: Hafsa Purcell on 06-30-2023 Albumin [Mass/Vol] 4.8 g/dL 3.5 - 5.0 g/dL [facility] ALP [Catalytic activity/Vol] 102 U/L 38 - 126 U/L [facility] ALT [Catalytic activity/Vol] 45 U/L 0 - 49 U/L [facility] Anion gap [Moles/Vol] 14 mmol/L High 3 - 13 mmol/L [facility] AST [Catalytic activity/Vol] 83 U/L High 15 - 46 U/L [facility] Bilirubin [Mass/Vol] 0.8 mg/dL 0.2 - 1 .3 mg/dL [facility] [facility] Calcium [Mass/Vol] 9.2 mg/dL 8.4 - 10. 4 mg/dL [facility] Chloride [Moles/Vol] 86 mmol/L Low 98 - 10 7 mmol/L [facility] CO2 [Moles/Vol] 19 mmol/L Low 22 - 30 mmol/L [facility] Creatinine [Mass/Vol] 1.36 mg/dL High 0.66 - 1.25 mg/dL [facility] GFR/1.73 sq M.predicted MDRD (S/P/Bld) [Vol rate/Area] 58.5 mL/min/{1.73_m2} Low - PINF [facility] Comment on above: Calculation based on the Chronic Kidney Disease Epidemiology Collaboration (CKD-EPI) equation refit without adjustment for race Glucose [Mass/Vol] 82 mg/dL 70 - 100 mg/dL [facility] Interpretation and review of laboratory results Abnormal [facility] Potassium [Moles/Vol] 4.3 mmol/L 3.5 - 5.1 mmol/L [facility] Protein [Mass/Vol] 8.4 g/dL High 6.3 - 8.2 g/dL [facility] Sodium [Moles/Vol] 119 mmol/L Critically low 135 - 1 45 mmol/L [facility] Urea nitrogen [Mass/Vol] 11 mg/dL 9 - 20 mg/dL [facility] Ethanol (Bld) [Mass/Vol]on 0 06-30-2023 Ethanol [Mass/Vol] 0.270 g/dL High 0.000 - 0.010 g/dL [facility] Interpretation and review of laboratory results Abnormal [facility] Laboratory - Drug toxicology on 06-30-2023 Amphetamines Screen method >1000 ng/mL Ql (U) Negative [facility] Barbiturates Screen method >200 ng/mL Ql (U) Positive [facility] Benzodiazepines Ql (U) Negative [facility] Methadone Screen Ql (U) Negative [facility] Opiates Screen Ql (U) Negative [facility] oxyCODONE Ql (U) Negative [facility] Phencyclidine Ql (U) Negative [facility] Laboratory - Microbiology an d Antimicrobial susceptibilityon 06-30-2023 SARS-CoV-2 (COVID-19) Ag IA.rapid Ql (Resp) Negative Negative [facility] Comment on above: A negative result do es not rule out the possibility of SARS-CoV-2 infection. NAAT-based methods should be considered for symptomatic patients presenting greater than seven days after onset of symptoms. Method: Lateral flow immunoassay. Fact sheets for healthcare providers and patients can be found at the following sites: https://www.fda.gov/media/691403/download https://www.fda.gov/media/135145/download No Panel Informationon 06-30 COCAINE METAB. SCREEN Negative [facility] The expected value f or all [...] is needed, request confirmation under separate order. [facility] 1. No acute intracranial findings. Chronic ischemic and atrophic changes. 2. No acute compression deformity or apparent fracture in the cervical spine. Degenerative spondylosis. Report Dictated on Electronically Signed By: Dallas Hanks MD Electronically Signed Date/Time: 06/30/2023 5:58 PM EDT [facility] Radiology Study observation (narrative) [facility] No Panel InformationOrdered By: Dallas Hanks on 06-30-[address] [facility] Work Phone: SARS-CoV-2 (COVID-19) Ag IA. rapid Ql (Resp)on 06-30-2023 Interpretation and review of laboratory results Normal [facility] CBC panel Auto (Bld)on 04-15 Erythrocyte distribution width (RBC) [Ratio] 14.1 % 11.5 - 14.5 % [facility] Hematocrit (Bld) [Volume fraction] 31.0 % Low 40.0 - 52.0 % [facility] Hemoglobin (Bld) [Mass/Vol] 10.6 g/dL Low 13.0 - 18.0 g/dL [facility] Interpretation and review of laboratory results Abnormal [facility] MCH (RBC) [Entitic mass] 34.2 pg High 26.0 - 34.[address] [facility] MCHC (RBC) [Mass/Vol] 34.2 % 32.0 - 36.0 % [facility] MCV (RBC) [Entitic vol] 99.9 fL High 80.0 - 98.[address] [facility] Platelet mean volume (Bld) [Entitic vol] 7.7 fL 7.4 - 12.[address] [facility] Platelets (Bld) [#/Vol] 185 10*3/uL 140 - 440 10*3/uL [facility] RBC (Bld) [#/Vol] 3.11 10*6/uL Low 4.40 - 5.9 0 10*6/uL [facility] WBC (Bld) [#/Vol] 4.3 10*3/uL 3.6 - 10.7 10*3/uL [facility] Comprehensive metabolic 1998 panelon 04-15-2023 Albumin [Mass/Vol] 3.6 g/dL 3.5 - 5.0 g/dL [facility] ALP [Catalytic activity/Vol] 58 U/L 38 - 126 U/L [facility] ALT [Catalytic activity/Vol] 65 U/L High 0 - 49 U/L [facility] Anion gap [Moles/Vol] 6 mmol/L 3 - 13 mmol/L [facility] AST [Catalytic activity/Vol] 87 U/L High 15 - 46 U/L [facility] Bilirubin [Mass/Vol] 0.4 mg/dL 0.2 - 1 .3 mg/dL [facility] Calcium [Mass/Vol] 8.8 mg/dL 8.4 - 10. 4 mg/dL [facility] Chloride [Moles/Vol] 100 mmol/L 98 - 10 7 mmol/L [facility] CO2 [Moles/Vol] 23 mmol/L 22 - 30 mmol/L [facility] Creatinine [Mass/Vol] 0.77 mg/dL 0.66 - 1.25 mg/dL [facility] GFR/1.73 sq M.predicted MDRD (S/P/Bld) [Vol rate/Area] - PINF [facility] Comment on above: Calculation based on the Chronic Kidney Disease Epidemiology Collaboration (CKD-EPI) equation refit without adjustment for race Glucose [Mass/Vol] 105 mg/dL High 70 - 100 mg/dL [facility] Interpretation and review of laboratory results Abnormal [facility] Potassium [Moles/Vol] 3.9 mmol/L 3.5 - 5.1 mmol/L [facility] Protein [Mass/Vol] 6.4 g/dL 6.3 - 8.2 g/dL [facility] Sodium [Moles/Vol] 129 mmol/L Low 135 - 145 mmol/L [facility] Urea nitrogen [Mass/Vol] 6 mg/dL Low 9 - 20 mg/dL [facility] CBC panel Auto (Bld)on 04-14 Erythrocyte distribution width (RBC) [Ratio] 13.8 % 11.5 - 14.5 % [facility] Hematocrit (Bld) [Volume fraction] 29.8 % Low 40.0 - 52.0 % [facility] Hemoglobin (Bld) [Mass/Vol] 10.3 g/dL Low 13.0 - 18.0 g/dL [facility] Interpretation and review of laboratory results Abnormal [facility] MCH (RBC) [Entitic mass] 34.0 pg 26.0 - 34.[address] [facility] MCHC (RBC) [Mass/Vol] 34.6 % 32.0 - 36.0 % [facility] MCV (RBC) [Entitic vol] 98.4 fL High 80.0 - 98.[address] [facility] Platelet mean volume (Bld) [Entitic vol] 7.4 fL 7.4 - 12.[address] [facility] Platelets (Bld) [#/Vol] 153 10*3/uL 140 - 440 10*3/uL [facility] RBC (Bld) [#/Vol] 3.03 10*6/uL Low 4.40 - 5.9 0 10*6/uL [facility] WBC (Bld) [#/Vol] 3.5 10*3/uL Low 3.6 - 10.7 10*3/uL [facility] Comprehensive metabolic 1998 panelon 04-14-2023 Albumin [Mass/Vol] 3.5 g/dL 3.5 - 5.0 g/dL [facility] ALP [Catalytic activity/Vol] 65 U/L 38 - 126 U/L [facility] ALT [Catalytic activity/Vol] 61 U/L High 0 - 49 U/L [facility] Anion gap [Moles/Vol] 7 mmol/L 3 - 13 mmol/L [facility] AST [Catalytic activity/Vol] 83 U/L High 15 - 46 U/L [facility] Bilirubin [Mass/Vol] 0.5 mg/dL 0.2 - 1 .3 mg/dL [facility] Calcium [Mass/Vol] 8.4 mg/dL 8.4 - 10. 4 mg/dL [facility] Chloride [Moles/Vol] 97 mmol/L Low 98 - 10 7 mmol/L [facility] CO2 [Moles/Vol] 21 mmol/L Low 22 - 30 mmol/L [facility] Creatinine [Mass/Vol] 0.77 mg/dL 0.66 - 1.25 mg/dL [facility] GFR/1.73 sq M.predicted MDRD (S/P/Bld) [Vol rate/Area] - PINF [facility] Comment on above: Calculation based on the Chronic Kidney Disease Epidemiology Collaboration (CKD-EPI) equation refit without adjustment for race Glucose [Mass/Vol] 95 mg/dL 70 - 100 mg/dL [facility] Interpretation and review of laboratory results Abnormal [facility] Potassium [Moles/Vol] 3.7 mmol/L 3.5 - 5.1 mmol/L [facility] Protein [Mass/Vol] 6.2 g/dL Low 6.3 - 8.2 g/dL [facility] Sodium [Moles/Vol] 125 mmol/L Low 135 - 145 mmol/L [facility] Urea nitrogen [Mass/Vol] 6 mg/dL Low 9 - 20 mg/dL [facility] Laboratory - Chemistry and C hemistry - challengeon 04-14-2023 Magnesium [Mass/Vol] 1.8 mg/dL 1.6 - 2 .3 mg/dL [facility] Magnesium [Mass/Vol]on 04-14 Interpretation and review of laboratory results Normal [facility] CBC panel Auto (Bld)Ordered By: Sandy Nance on 04-13-2023 Erythrocyte distribution width (RBC) [Ratio] 13.7 % 11.5 - 14.5 % [facility] Hematocrit (Bld) [Volume fraction] 29.7 % Low 40.0 - 52.0 % [facility] Hemoglobin (Bld) [Mass/Vol] 10.3 g/dL Low 13.0 - 18.0 g/dL [facility] Interpretation and review of laboratory results Abnormal [facility] MCH (RBC) [Entitic mass] 34.4 pg High 26.0 - 34.[address] [facility] MCHC (RBC) [Mass/Vol] 34.7 % 32.0 - 36.0 % [facility] MCV (RBC) [Entitic vol] 99.2 fL High 80.0 - 98.[address] [facility] Platelet mean volume (Bld) [Entitic vol] 8.0 fL 7.4 - 12.[address] [facility] Platelets (Bld) [#/Vol] 145 10*3/uL 140 - 440 10*3/uL [facility] RBC (Bld) [#/Vol] 2.99 10*6/uL Low 4.40 - 5.9 0 10*6/uL [facility] WBC (Bld) [#/Vol] 3.1 10*3/uL Low 3.6 - 10.7 10*3/uL [facility] Comprehensive metabolic 1998 panelon 04-13-2023 Albumin [Mass/Vol] 3.2 g/dL Low 3.5 - 5.0 g/dL [facility] ALP [Catalytic activity/Vol] 47 U/L 38 - 126 U/L [facility] ALT [Catalytic activity/Vol] 46 U/L 0 - 49 U/L [facility] Anion gap [Moles/Vol] 4 mmol/L 3 - 13 mmol/L [facility] AST [Catalytic activity/Vol] 67 U/L High 15 - 46 U/L [facility] Bilirubin [Mass/Vol] 0.5 mg/dL 0.2 - 1 .3 mg/dL [facility] Calcium [Mass/Vol] 7.9 mg/dL Low 8.4 - 10. 4 mg/dL [facility] Chloride [Moles/Vol] 99 mmol/L 98 - 10 7 mmol/L [facility] CO2 [Moles/Vol] 24 mmol/L 22 - 30 mmol/L [facility] Creatinine [Mass/Vol] 0.76 mg/dL 0.66 - 1.25 mg/dL [facility] GFR/1.73 sq M.predicted MDRD (S/P/Bld) [Vol rate/Area] - PINF [facility] Comment on above: Calculation based on the Chronic Kidney Disease Epidemiology Collaboration (CKD-EPI) equation refit without adjustment for race Glucose [Mass/Vol] 91 mg/dL 70 - 100 mg/dL [facility] Interpretation and review of laboratory results Abnormal [facility] Potassium [Moles/Vol] 3.5 mmol/L 3.5 - 5.1 mmol/L [facility] Protein [Mass/Vol] 5.7 g/dL Low 6.3 - 8.2 g/dL [facility] Sodium [Moles/Vol] 127 mmol/L Low 135 - 145 mmol/L [facility] Urea nitrogen [Mass/Vol] 8 mg/dL Low 9 - 20 mg/dL [facility] Laboratory - Chemistry and C hemistry - challengeOrdered By: Daniel Allen on 06-26-2023 Magnesium [Mass/Vol] 0.9 mg/dL Critically low 1.6 - 2.3 mg/dL [facility] Magnesium [Mass/Vol]Ordered By: Daniel Allen on 04-13-2023 Interpretation and review of laboratory results Abnormal [facility] CBC panel Auto (Bld)Ordered By: Philip Medrano on 04-12-2023 Erythrocyte distribution width (RBC) [Ratio] 14.0 % 11.5 - 14.5 % [facility] Hematocrit (Bld) [Volume fraction] 27.9 % Low 40.0 - 52.0 % [facility] Hemoglobin (Bld) [Mass/Vol] 9.8 g/dL Low 13.0 - 18.0 g/dL [facility] Interpretation and review of laboratory results Abnormal [facility] MCH (RBC) [Entitic mass] 34.7 pg High 26.0 - 34.[address] [facility] MCHC (RBC) [Mass/Vol] 35.0 % 32.0 - 36.0 % [facility] MCV (RBC) [Entitic vol] 99.1 fL High 80.0 - 98.[address] [facility] Platelet mean volume (Bld) [Entitic vol] 8.2 fL 7.4 - 12.[address] [facility] Platelets (Bld) [#/Vol] 134 10*3/uL Low 140 - 440 10*3/uL [facility] RBC (Bld) [#/Vol] 2.82 10*6/uL Low 4.40 - 5.9 0 10*6/uL [facility] WBC (Bld) [#/Vol] 3.1 10*3/uL Low 3.6 - 10.7 10*3/uL [facility] Comprehensive metabolic 1998 panelon 04-12-2023 Albumin [Mass/Vol] 3.2 g/dL Low 3.5 - 5.0 g/dL [facility] ALP [Catalytic activity/Vol] 59 U/L 38 - 126 U/L [facility] ALT [Catalytic activity/Vol] 50 U/L High 0 - 49 U/L [facility] Anion gap [Moles/Vol] 4 mmol/L 3 - 13 mmol/L [facility] AST [Catalytic activity/Vol] 75 U/L High 15 - 46 U/L [facility] Bilirubin [Mass/Vol] 0.3 mg/dL 0.2 - 1 .3 mg/dL [facility] Calcium [Mass/Vol] 8.2 mg/dL Low 8.4 - 10. 4 mg/dL [facility] Chloride [Moles/Vol] 104 mmol/L 98 - 10 7 mmol/L [facility] CO2 [Moles/Vol] 24 mmol/L 22 - 30 mmol/L [facility] Creatinine [Mass/Vol] 0.90 mg/dL 0.66 - 1.25 mg/dL [facility] GFR/1.73 sq M.predicted MDRD (S/P/Bld) [Vol rate/Area] - PINF [facility] Comment on above: Calculation based on the Chronic Kidney Disease Epidemiology Collaboration (CKD-EPI) equation refit without adjustment for race Glucose [Mass/Vol] 97 mg/dL 70 - 100 mg/dL [facility] Interpretation and review of laboratory results Abnormal [facility] Potassium [Moles/Vol] 3.6 mmol/L 3.5 - 5.1 mmol/L [facility] Protein [Mass/Vol] 5.8 g/dL Low 6.3 - 8.2 g/dL [facility] Sodium [Moles/Vol] 131 mmol/L Low 135 - 145 mmol/L [facility] Urea nitrogen [Mass/Vol] 8 mg/dL Low 9 - 20 mg/dL [facility] CBC panel Auto (Bld)Ordered By: Montrell Charles on 04-11-2023 Erythrocyte distribution width (RBC) [Ratio] 14.2 % 11.5 - 14.5 % [facility] Hematocrit (Bld) [Volume fraction] 28.8 % Low 40.0 - 52.0 % [facility] Hemoglobin (Bld) [Mass/Vol] 9.9 g/dL Low 13.0 - 18.0 g/dL [facility] Interpretation and review of laboratory results Abnormal [facility] MCH (RBC) [Entitic mass] 34.6 pg High 26.0 - 34.[address] [facility] MCHC (RBC) [Mass/Vol] 34.6 % 32.0 - 36.0 % [facility] MCV (RBC) [Entitic vol] 100.0 fL High 80.0 - 98.[address] [facility] Platelet mean volume (Bld) [Entitic vol] 7.8 fL 7.4 - 12.[address] [facility] Platelets (Bld) [#/Vol] 119 10*3/uL Low 140 - 440 10*3/uL [facility] RBC (Bld) [#/Vol] 2.88 10*6/uL Low 4.40 - 5.9 0 10*6/uL [facility] WBC (Bld) [#/Vol] 2.3 10*3/uL Low 3.6 - 10.7 10*3/uL [facility] Comprehensive metabolic 1998 panelon 04-11-2023 Albumin [Mass/Vol] 3.2 g/dL Low 3.5 - 5.0 g/dL [facility] ALP [Catalytic activity/Vol] 64 U/L 38 - 126 U/L [facility] ALT [Catalytic activity/Vol] 60 U/L High 0 - 49 U/L [facility] Anion gap [Moles/Vol] 5 mmol/L 3 - 13 mmol/L [facility] AST [Catalytic activity/Vol] 100 U/L High 15 - 46 U/L [facility] Bilirubin [Mass/Vol] 0.4 mg/dL 0.2 - 1 .3 mg/dL [facility] Calcium [Mass/Vol] 8.3 mg/dL Low 8.4 - 10. 4 mg/dL [facility] Chloride [Moles/Vol] 103 mmol/L 98 - 10 7 mmol/L [facility] CO2 [Moles/Vol] 22 mmol/L 22 - 30 mmol/L [facility] Creatinine [Mass/Vol] 0.94 mg/dL 0.66 - 1.25 mg/dL [facility] GFR/1.73 sq M.predicted MDRD (S/P/Bld) [Vol rate/Area] - PINF [facility] Comment on above: Calculation based on the Chronic Kidney Disease Epidemiology Collaboration (CKD-EPI) equation refit without adjustment for race Glucose [Mass/Vol] 89 mg/dL 70 - 100 mg/dL [facility] Interpretation and review of laboratory results Abnormal [facility] Potassium [Moles/Vol] 3.6 mmol/L 3.5 - 5.1 mmol/L [facility] Protein [Mass/Vol] 5.7 g/dL Low 6.3 - 8.2 g/dL [facility] Sodium [Moles/Vol] 130 mmol/L Low 135 - 145 mmol/L [facility] Urea nitrogen [Mass/Vol] 10 mg/dL 9 - 20 mg/dL [facility] No Panel InformationOrdered By: Richie Iniguez on 04-11-2023 P [place] 106 degrees [employer] Work Phone: LA Interval 158 ms [employer] Work Phone: QRS [place] -40 degrees [employer] Work Phone: QRSD Interval 140 ms [employer] Work Phone: QT Interval 368 ms [employer] Work Phone: QTC Interval 485 ms [employer] Work Phone: T Wave [place] 7 degrees [employer] Work Phone: [employer] Work Phone: No Panel Informationon 04-11 SINUS [...] 04-11-2023 12:14:19 EDT by Richie Iniguez [facility] Vital signsOrdered By: Clifton Iniguez on 04-11-2023 Heart rate 104 /min bpm [facility] Work Phone: Comprehensive metabolic 1998 panelon 04-10-2023 Albumin [Mass/Vol] 3.3 g/dL Low 3.5 - 5.0 g/dL [facility] ALP [Catalytic activity/Vol] 54 U/L 38 - 126 U/L [facility] ALT [Catalytic activity/Vol] 62 U/L High 0 - 49 U/L [facility] Anion gap [Moles/Vol] 5 mmol/L 3 - 13 mmol/L [facility] AST [Catalytic activity/Vol] 142 U/L High 15 - 46 U/L [facility] Bilirubin [Mass/Vol] 0.3 mg/dL 0.2 - 1 .3 mg/dL [facility] Calcium [Mass/Vol] 8.2 mg/dL Low 8.4 - 10. 4 mg/dL [facility] Chloride [Moles/Vol] 101 mmol/L 98 - 10 7 mmol/L [facility] CO2 [Moles/Vol] 23 mmol/L 22 - 30 mmol/L [facility] Creatinine [Mass/Vol] 0.94 mg/dL 0.66 - 1.25 mg/dL [facility] GFR/1.73 sq M.predicted MDRD (S/P/Bld) [Vol rate/Area] - PINF [facility] Comment on above: Calculation based on the Chronic Kidney Disease Epidemiology Collaboration (CKD-EPI) equation refit without adjustment for race Glucose [Mass/Vol] 83 mg/dL 70 - 100 mg/dL [facility] Interpretation and review of laboratory results Abnormal [facility] Potassium [Moles/Vol] 4.1 mmol/L 3.5 - 5.1 mmol/L [facility] Protein [Mass/Vol] 6.0 g/dL Low 6.3 - 8.2 g/dL [facility] Sodium [Moles/Vol] 129 mmol/L Low 135 - 145 mmol/L [facility] Urea nitrogen [Mass/Vol] 6 mg/dL Low 9 - 20 mg/dL [facility] Gastrointestinal pathogens p mac SHANE+probe (Stl)Ordered By: Edy Garcia on 04-10-2023 Adenovirus F 40/41 Not detected Not Detected [facility] Astrovirus Not detected Not Detected [facility] Campylobacter Not detected Not Detected [facility] Cryptosporidium Not detected Not Detected [facility] Cyclospora cayetanensis Not detected Not Detected [facility] Entamoeba histolytica Not detected Not Detected [facility] Enterotoxigenic E coli (ETEC) Not detected Not Detected [facility] Giardia lamblia Not detected Not Detected [facility] Interpretation and review of laboratory results Normal [facility] Norovirus GI/GII Not detected Not Detected [facility] Plesiomonas shigelloides Not detected Not Detected [facility] Rotavirus A Not detected Not Detected [facility] Salmonella Not detected Not Detected [facility] Sapovirus Not detected Not Detected [facility] Shiga toxin-producing E coli (STEC) Not detected Not Detected [facility] Shigella/Enteroinvasiv e E coli (EIEC) Not detected Not Detected [facility] Vibrio cholerae Not detected Not Detected [facility] Vibrio species Not detected Not Detected [facility] Yersinia enterocolitica Not detected Not Detected [facility] Methodology: Multipl ex PCR [facility] Laboratory - Chemistry and C hemistry - challengeon 04-10-2023 Sodium (24H U) [Mass/Vol] 41 mmol/L 30 - 90 mmol/L [facility] TSH Qn 3.864 m[IU]/L [facility] Sodium (24H U) [Mass/Vol] 8 mmol/L Low 30 - 90 mmol/L [facility] No Panel Informationon 04-10 Interpretation and review of laboratory results Normal [facility] Interpretation and review of laboratory results Abnormal [facility] OSMOLALITY, URINE 88 Low [facility] Interpretation and review of laboratory results Abnormal [facility] No Panel InformationOrdered By: Gabriela Franco on 04-10-2023 Interpretation and review of laboratory results Abnormal [facility] OSMOLALITY, URINE 230 Low [facility] No Panel InformationOrdered By: Aylin Moran on 04-10-2023 Interpretation and review of laboratory results Normal [facility] OSMOLALITY, SERUM 286 [facility] TSH Qnon 04-10-2023 Interpretation and review of laboratory results Normal [facility] Urinalysis complete panel (U )on 04-10-2023 Bilirubin Ql (U) Negative Negative mg/dL [facility] Clarity (U) Clear Clear [facility] Color (U) Light Yellow Lt. Yellow [facility] Glucose Ql (U) Normal Normal (<70) mg/dL [facility] Hemoglobin Ql (U) Negative Negative mg/dL [facility] Interpretation and review of laboratory results Normal [facility] Ketones (U) [Mass/Vol] Negative Negat zenia mg/dL [facility] Leukocyte esterase Test strip Ql (U) Negative Negative Emma/uL [facility] Nitrite Ql (U) Negative Negative [facility] pH (U) 5.5 [pH] 5.0 - 8.[address] [facility] Protein (U) [Mass/Vol] Negative Negat zenia mg/dL [facility] Specific gravity (U) [Rel density] 1.006 1.005 - 1.[address] [facility] Urobilinogen (U) [Mass/Vol] Normal Normal (0-1) mg/dL [facility] CBC panel Auto (Bld)Ordered By: Sloane Rubin on 04-09-2023 Erythrocyte distribution width (RBC) [Ratio] 12.8 % 11.5 - 14.5 % [facility] Hematocrit (Bld) [Volume fraction] 28.5 % Low 40.0 - 52.0 % [facility] Hemoglobin (Bld) [Mass/Vol] 10.0 g/dL Low 13.0 - 18.0 g/dL [facility] Interpretation and review of laboratory results Abnormal [facility] MCH (RBC) [Entitic mass] 33.9 pg 26.0 - 34.[address] [facility] MCHC (RBC) [Mass/Vol] 35.1 % 32.0 - 36.0 % [facility] MCV (RBC) [Entitic vol] 96.6 fL 80.0 - 98.[address] [facility] Platelet mean volume (Bld) [Entitic vol] 9.2 fL 7.4 - 12.[address] [facility] Platelets (Bld) [#/Vol] 106 10*3/uL Low 140 - 440 10*3/uL [facility] RBC (Bld) [#/Vol] 2.95 10*6/uL Low 4.40 - 5.9 0 10*6/uL [facility] WBC (Bld) [#/Vol] 3.3 10*3/uL Low 3.6 - 10.7 10*3/uL [facility] Comprehensive metabolic 1998 panelon 04-09-2023 Albumin [Mass/Vol] 3.8 g/dL 3.5 - 5.0 g/dL [facility] ALP [Catalytic activity/Vol] 63 U/L 38 - 126 U/L [facility] ALT [Catalytic activity/Vol] 58 U/L High 0 - 49 U/L [facility] Anion gap [Moles/Vol] 12 mmol/L 3 - 13 mmol/L [facility] AST [Catalytic activity/Vol] 103 U/L High 15 - 46 U/L [facility] Bilirubin [Mass/Vol] 0.3 mg/dL 0.2 - 1 .3 mg/dL [facility] Calcium [Mass/Vol] 8.7 mg/dL 8.4 - 10. 4 mg/dL [facility] Chloride [Moles/Vol] 93 mmol/L Low 98 - 10 7 mmol/L [facility] CO2 [Moles/Vol] 19 mmol/L Low 22 - 30 mmol/L [facility] Creatinine [Mass/Vol] 1.04 mg/dL 0.66 - 1.25 mg/dL [facility] GFR/1.73 sq M.predicted MDRD (S/P/Bld) [Vol rate/Area] 80.7 mL/min/{1.73_m2} - PINF [facility] Comment on above: Calculation based on the Chronic Kidney Disease Epidemiology Collaboration (CKD-EPI) equation refit without adjustment for race Glucose [Mass/Vol] 110 mg/dL High 70 - 100 mg/dL [facility] Potassium [Moles/Vol] 3.9 mmol/L 3.5 - 5.1 mmol/L [facility] Protein [Mass/Vol] 6.6 g/dL 6.3 - 8.2 g/dL [facility] Sodium [Moles/Vol] 124 mmol/L Low 135 - 145 mmol/L [facility] Urea nitrogen [Mass/Vol] 9 mg/dL 9 - 20 mg/dL [facility] Ethanol (Bld) [Mass/Vol]on 0 04-09-2023 Ethanol [Mass/Vol] 0.210 g/dL High 0.000 - 0.010 g/dL [facility] Laboratory - Chemistry and C hemistry - challengeon 04-09-2023 Troponin I.cardiac [Mass/Vol] ng/mL 0.000 - 0.034 ng/mL [facility] Lipase [Catalytic activity/Vol] 287 U/L 23 - 300 U/L [facility] Laboratory - Coagulationon 0 04-09-2023 PT Coag (Bld) [Time] 11.3 s 9.0 - 12.0 s [facility] No Panel Informationon 04-09 Interpretation and review of laboratory results Normal [facility] Interpretation and review of laboratory results Abnormal [facility] PT Coag (Bld) [Time]on 04-09 INR Coag (PPP) [Relative time] 1.0 {INR} 0.9 - 1.[address] [facility] Comment on above: Recommended Anticoag ulant [...] and review of laboratory results Normal [facility] Patients with high l evels of Biotin oral intake (ie >5 mg/day) may have falsely decreased Troponin levels. [facility] Urinalysis complete panel (U )on 04-09-2023 Bilirubin Ql (U) Negative Negative mg/dL [facility] Clarity (U) Clear Clear [facility] Color (U) Colorless Lt. Yellow [facility] Glucose Ql (U) Normal Normal (<70) mg/dL [facility] Hemoglobin Ql (U) Negative Negative mg/dL [facility] Interpretation and review of laboratory results Abnormal [facility] Ketones (U) [Mass/Vol] Negative Negat zenia mg/dL [facility] Leukocyte esterase Test strip Ql (U) Negative Negative Emma/uL [facility] Nitrite Ql (U) Negative Negative [facility] pH (U) 5.5 [pH] 5.0 - 8.[address] [facility] Protein (U) [Mass/Vol] Negative Negat zenia mg/dL [facility] Specific gravity (U) [Rel density] 1.002 Low 1.005 - 1.[address] [facility] Urobilinogen (U) [Mass/Vol] Normal Normal (0-1) mg/dL [facility] Laboratory - Chemistry and C hemistry - challengeon 04-07-2023 Elastase.pancreatic (Stl) [Mass/Mass] >800 100 - PINF ug/g [facility] Comment on above: REFERENCE INTERVAL: Pancreatic Elastase Fecal by Immunoassay Less than 100 ug/g............Severe insufficiency 100 - 199 ug/g................Moderate insufficiency 200 ug/g or greater...........Normal INTERPRETIVE INFORMATION: Pancreatic Elastase Fecal by Immunoassay Reference intervals do not apply for infants less than one month old. Performed by [facility], [address] [place] [id number] [email or web address], Ana Heredia MD, PHD, Lab. Director Glucose [Mass/Vol] 114 mg/dL High 70 - 100 mg/dL [facility] Laboratory - Serology - non- microOrdered By: Adama Arteaga on 04-07-2023 Gliadin IgG IA Qn (S) U/ml NINF - 15.0 U/ml [facility] tTG IgA IA Qn (S) U/mL NINF - 15. 0 U/mL [facility] tTG IgA IA Qn (S) U/mL NINF - 15. 0 U/mL [facility] No Panel Informationon 04-[address] [facility] Interpretation and review of laboratory results Abnormal [facility] Performed by: [facility], [address] [place] [address] CLIA ID: [id number] [facility] No Panel InformationOrdered By: Adama Arteaga on 04-07-2023 Deam Gliadin Peptide IgA 0.3 U/ml NINF - 15.0 U/ml [facility] Interpretation and review of laboratory results Normal [facility] TTG Interpretive Information: Results of 15 Units/mL or greater = POSITIVE Results Less than 15 Units/mL = NEGATIVE De[facility] Gliadin Peptide Interpretive Information: Results of 15 Units/mL or greater = POSITIVE Results Less than 15 Units/mL = NEGATIVE [facility] HIV 1+2 Ab+HIV1 p24 Ag IA Ql on 04-06-2023 Interpretation and review of laboratory results Normal [facility] Laboratory - Chemistry and C hemistry - challengeon 04-06-2023 Glucose [Mass/Vol] 164 mg/dL High 70 - 100 mg/dL [facility] Laboratory - Drug toxicology on 04-06-2023 PHENobarbital [Mass/Vol] 32.1 ug/mL 10.0 - 40.0 ug/mL [facility] Laboratory - Microbiology an d Antimicrobial susceptibilityon 04-06-2023 HIV 1+2 Ab+HIV1 p24 Ag IA Ql Non-Reactive Nonreactive [facility] Comment on above: The specimen was non -reactive for HIV-1 and HIV-2 antibodies and p24 antigen using an FDA-cleared 4th generation HIV test. Based on this non-reactive screen result, further reflexive testing was not indicated and was, therefore, not performed. No Panel Informationon 04-06 Interpretation and review of laboratory results Abnormal [facility] Performed by: [facility], [address] [place] [address] CLIA ID: [id number] [facility] Interpretation and review of laboratory results Normal [facility] No Panel InformationOrdered By: Beto De La O on 04-06-2023 Case Report Peripheral Smear Corey e: [id number] Authorizing Provider: Inder Stein DO Collected: 04/04/2023 1445 Ordering Location: [address] Received: 04/04/2023 1549 Pathologist: Beto De La O DO Specimen: Blood, Venous [facility] Phone: Pathologist Interpretation Location [facility], [address] [place] [address], CLIA: [id number]; Joint Commission: [id number]; CAP: [id number] [facility] Phone: Pathology report final diagnosis Narrative [id number] xYfRBGtsSKnI2CimdsmSVewMN 9yUY0shDyneMOqwKKrLHYtYkP om3pnc983dOOjz9gwARGTCIic RRIYNEq0b4opEFCRvJ2gr3v5a KlgRqLxN800wghdjcJUSFi4mC zeXsZrP4rgM6JahppwI023i2t kw4csdbIsiUW0aRiaKpliqKH8 hWHsgXO5FVjwd3NkcUbrgJjdQ JweYXEjLoNjDNnvp6P1FH7bfC J6JMdkHNM6PCjcj6NlTK2vGJo 4MTbgg3TauLJmmVU7ZMuuf3Tv PZLojMdbAJGfgU5jLdFqNNaep mVsbmZjbjIzXGxldmVsamMwXG yxfmDsr0XelmRgkMO9TUfvsgG lwXR2tAfaQPNxaD2cCSIuUC84 kAeuoWY8HRnnyJ8cDQWuW07lM jFcbGkzNjBcZmktMzYwfXtcbG lzdGxldmVsXGxldmVsbmZjMjN rrYA6SZxoRyFsFnDfpYF9UHrm UwJsvGA0IEcnvUZeiGQ4BKwdp WT2FDo4VVp4FYkpKR04mIissB Z5QSognU9aJVPfW01fFuQbeUz dJXutTWMjWQV5IC54VCmuf5Ea YXHkaIrdDQDozZ2pCtMbLSbpw mVsbmZjbjIzXGxldmVsamMwXG yynmPif7UhahUfzLH6ZGzfsbV dvFN4eCuiBKWgdD1cCFF0CR85 nMmnuPI7TQegwR2dMUByB07pM zWewQmzFHSwTXXsCBJ1IR85SE yki9KtPLUujInoIUQnsB8uJxP zXGxldmVsbmZjbjIzXGxldmVs ojBpXTdalpGqj5ClexPzoYZ8L NgchvOcyXU9eDiyQRHebY1qIM QbUP80kRivnMY4LGgluL4rHHM sH37cDoMftWsaKJTkPJKoRFR8 YY66EMydd0LeWZTraAunLGBzl J1lFvEnRXfgqaBerwDmhtQgBM tqohCbjgAcGPsoklCat3SylbY fzUQ5YXjjofGzyZT6uEjzFBTg W696GDmpytErprBbCiKxsrt9E FKwEUwnPaY3DWdxpQ0vKyQ1c9 wzbQW5uMC3NLazqXK4BBjtVbR qK6xhSEQmnF7mE39hK0qaAIHt kHcmQEwmQTZyuJD0DXG3AXQop 1xsZXZlbHRleHRcJzAxXHUtMz kyOSA/G160CTeikcAaenIkWuR ujec0IJCeGWkxKfe1NZtaqL6w GhQ7p1bcuNH1cTS9OCyuaSZ2X LbmKyZhZ4izWSHhiV6jO22sV1 bgJMLogQytQVmdWQTbfKS1SON 6FQZlz6hvQNSaoNFlbXImOfWf XHUtMzkxMyA/F921HNuwddIvi bLrAeZqicu0CRNlBZhrARU9GJ irbJ2yNrA0i6qitOP9jHV5SMz ukTP6SDdzNzOmD7rhZAMnaV8o Q19sV9tpIYSpaOvsMBzpTNDir KZ7QBG7CCXvl5apLYZkpQGzxN CzRiSbzkv6n8nvKGFbtD10nQW qulB1ePtuQzqvwPV2NIBvVdxf MzYwfXtcbGlzdGxldmVsXGxld iNgrxDcSnBpvML2AAdxTmSyHp HkfFC1HAqhCcDkwQP4RTuynAL fbVP3ZGwqwRQ3URm6ORn7JDmb TYt7JCA6VcjeOyn8q6rqHIDec S00tRQjmbY1wNjbH6xdkGDwSh SgPcymRfBbyK33z7glFKdnk2H dqmCocwomBFDvWrdqj3fgSEwk o9OgtqDepxpoIFelyVQ9kCJ3F NWqYKLoBzFgoEynmL69KCFoyL MbH739rlNoEBegAP37BBKpcTY hvbCxBaIhBMEklFIjkOU4HFNq GT1fvqcnSLppYHryIVXlgwG6K DSdsYXqC0GoEMBtLG5khxtnWM M6TDsiPQSgTKF4UaKhKNGvp7B syqz6PjKhhKTcICbdvFYahqkm czIwIFBlcmlwaGVyYWwgQmxvb 6DvW77mPZH9XYqyRCCupYxoTn CuHesxDcOwJOfdxoF7FFhrzaB fgFx3bWZwsTaxzL6pXfJcNXVO OA6haYMykWWaiVCqf6i5gMQaT BUin2VkfwsoTHCkx8iqtcenPI Wfe9l6fRVsxeO3yEQcfGEoqGD eCW7jQUGmc04svJNzTFk6bHRj t8SoiapjRQOvRIXrp0R7wXfdG P6ydv9fE0kym27wGwFoieMowZ ZhLDFyZVK3sHYfgHFkN8t7b3Z hzwvwQuZegHNgPVC6xQWqu6H5 ZJjottPaIBNxa1Jyv7VmHGRue 74gKGzhu0YdQN88fZGtoPdntt QzAFAsAszcaPZdB2dvryxraZ5 qEQK4hA5wWWB0fBVjLTL6OTFp jMQ4KZSsWRSeQGQ4ejOjolJxa 4NxnN7tuU6fEC7nBZitiMSwRJ HdFLNqxQT4XPZmc1JzrWX5rC4 tEL1gURDmcBLro7BlGYZeq83o IIKvkqCIoWKopMSpOC8zQMA3x 7fjOV42nO1hq0bze7bxJITlWR Zly0OnbBUnjdMyFnueUV4xbJK yfQ== [employer] Work Phone: [facility] Work Phone: Basic metabolic 1998 panelon 04-04-2023 Anion gap [Moles/Vol] 9 mmol/L 3 - 13 mmol/L [facility] Calcium [Mass/Vol] 8.3 mg/dL Low 8.4 - 10. 4 mg/dL [facility] Chloride [Moles/Vol] 99 mmol/L 98 - 10 7 mmol/L [facility] CO2 [Moles/Vol] 21 mmol/L Low 22 - 30 mmol/L [facility] Creatinine [Mass/Vol] 0.82 mg/dL 0.66 - 1.25 mg/dL [facility] GFR/1.73 sq M.predicted MDRD (S/P/Bld) [Vol rate/Area] - PINF [facility] Comment on above: Calculation based on the Chronic Kidney Disease Epidemiology Collaboration (CKD-EPI) equation refit without adjustment for race Glucose [Mass/Vol] 188 mg/dL High 70 - 100 mg/dL [facility] Interpretation and review of laboratory results Abnormal [facility] Potassium [Moles/Vol] 3.6 mmol/L 3.5 - 5.1 mmol/L [facility] Sodium [Moles/Vol] 128 mmol/L Low 135 - 145 mmol/L [facility] Urea nitrogen [Mass/Vol] 7 mg/dL Low 9 - 20 mg/dL [facility] Cobalamin (Vitamin B12) [Mas s/Vol]on 04-04-2023 Interpretation and review of laboratory results Normal [facility] Gastrointestinal pathogens p mac SHANE+probe (Stl)Ordered By: Albert Reid on 04-04-2023 Adenovirus F 40/41 Not detected Not Detected [facility] Astrovirus Not detected Not Detected [facility] Campylobacter Not detected Not Detected [facility] Cryptosporidium Not detected Not Detected [facility] Cyclospora cayetanensis Not detected Not Detected [facility] Entamoeba histolytica Not detected Not Detected [facility] Enterotoxigenic E coli (ETEC) Not detected Not Detected [facility] Giardia lamblia Not detected Not Detected [facility] Interpretation and review of laboratory results Normal [facility] Norovirus GI/GII Not detected Not Detected [facility] Plesiomonas shigelloides Not detected Not Detected [facility] Rotavirus A Not detected Not Detected [facility] Salmonella Not detected Not Detected [facility] Sapovirus Not detected Not Detected [facility] Shiga toxin-producing E coli (STEC) Not detected Not Detected [facility] Shigella/Enteroinvasiv e E coli (EIEC) Not detected Not Detected [facility] Vibrio cholerae Not detected Not Detected [facility] Vibrio species Not detected Not Detected [facility] Yersinia enterocolitica Not detected Not Detected [facility] Methodology: Multipl ex PCR [facility] HCV Ab IA QlOrdered By: Luisana Ayala on 04-04-2023 Interpretation and review of laboratory results Abnormal [facility] HbA1c (Bld) [Mass fraction]o n 04-04-2023 Average glucose Estimated from glycated hemoglobin (Bld) [Mass/Vol] 88 mg/dL [facility] Laboratory - Chemistry and C hemistry - challengeon 04-04-2023 Cobalamin (Vitamin B12) [Mass/Vol] 605 pg/mL 239 - 931 pg/mL [facility] TSH Qn 0.787 m[IU]/L [facility] Beta hydroxybutyrate [Mass/Vol] 5.35 mg/dL High 0.20 - 2.81 mg/dL [facility] Laboratory - Hematology and Cell countson 04-04-2023 HbA1c (Bld) [Mass fraction] 4.7 % NINF - 5.7 % [facility] Comment on above: Normal less than 5.7 % Prediabetes 5.7% to 6.4% Diabetes 6.5% or higher --HgbA1C levels may not be accurate in patients who have renal disease, received recent blood transfusions, are anemic, or who have dyshemoglobinemia. Laboratory - Microbiology an d Antimicrobial susceptibilityOrdered By: Quynh Ayala on 04-04-2023 HCV Ab IA Ql Detected Abnormal Not Detected [facility] Comment on above: Patients with DETECT ED Hepatitis C Ab results should have a new specimen submitted for supplemental testing with a Hepatitis C Quantitative RNA assay (viral load), if clinically indicated. No Panel Informationon 04-04 Interpretation and review of laboratory results Abnormal [facility] TSH Qnon 04-04-2023 Interpretation and review of laboratory results Normal [facility] XR Chest Single viewon 04-04 No acute process. Report Dictated on Electronically Signed By: Frankie Lambert Electronically Signed Date/Time: 04/04/2023 1:49 PM T [facility] Patient Name: WOODY NI : [...] of the spine and shoulders are present. [facility] Frankie Lambert DO - 04/04/2023 [facility] 1960 [id number] Exam Date/Time: 04/04/2023 08:56 Procedure: XR CHEST [...] Signed Date/Time: 04/04/2023 1:49 PM EDT [facility] Radiology Study observation (narrative) [facility] XR Chest Single viewOrdered By: Frankie Lambert on 04-04-2023 [facility] Work Phone: CBC W Auto Differential pane l (Bld)Ordered By: Perla Garcia on 04-02-2023 Basophils (Bld) [#/Vol] 0.0 10*3/uL 0.0 - 0.2 10*3/uL [facility] Basophils/100 WBC (Bld) 0.0 % 0.0 - 2.0 % [facility] Eosinophils (Bld) [#/Vol] 0.0 10*3/uL 0.0 - 0.5 10*3/uL [facility] Eosinophils/100 WBC (Bld) 0.0 % Low 1.0 - 6.0 % [facility] Erythrocyte distribution width (RBC) [Ratio] 13.0 % 11.5 - 14.5 % [facility] Hematocrit (Bld) [Volume fraction] 31.7 % Low 40.0 - 52.0 % [facility] Hemoglobin (Bld) [Mass/Vol] 11.4 g/dL Low 13.0 - 18.0 g/dL [facility] Immature granulocytes (Bld) [#/Vol] 0.0 10*3/uL NINF - 0.0 10*3/uL [facility] Immature granulocytes/100 WBC (Bld) 0.8 % High NINF - 0.0 % [facility] Interpretation and review of laboratory results Abnormal [facility] Lymphocytes (Bld) [#/Vol] 0.7 10*3/uL Low 1.0 - 4.3 10*3/uL [facility] Lymphocytes/100 WBC (Bld) 28.7 % 20.0 - 40.0 % [facility] MCH (RBC) [Entitic mass] 34.2 pg High 26.0 - 34.[address] [facility] MCHC (RBC) [Mass/Vol] 36.0 % 32.0 - 36.0 % [facility] MCV (RBC) [Entitic vol] 95.2 fL 80.0 - 98.0 fL [facility] Monocytes (Bld) [#/Vol] 0.1 10*3/uL 0.0 - 0.8 10*3/uL [facility] Monocytes/100 WBC (Bld) 4.3 % 2.0 - 10.0 % [facility] Neutrophils (Bld) [#/Vol] 1.7 10*3/uL Low 1.8 - 7.0 10*3/uL [facility] Neutrophils/100 WBC (Bld) 66.2 % 40.0 - 80.0 % [facility] Platelet mean volume (Bld) [Entitic vol] 9.0 fL 7.4 - 12.4 fL [facility] Platelets (Bld) [#/Vol] 93 10*3/uL Low 140 - 440 10*3/uL [facility] RBC (Bld) [#/Vol] 3.33 10*6/uL Low 4.40 - 5.9 0 10*6/uL [facility] WBC (Bld) [#/Vol] 2.5 10*3/uL Low 3.6 - 10.7 10*3/uL [facility] CRP [Mass/Vol]on 04-02-2023 Interpretation and review of laboratory results Normal [facility] Comprehensive metabolic 1998 panelon 04-02-2023 Albumin [Mass/Vol] 4.3 g/dL 3.5 - 5.0 g/dL [facility] ALP [Catalytic activity/Vol] 79 U/L 38 - 126 U/L [facility] ALT [Catalytic activity/Vol] 89 U/L High 0 - 49 U/L [facility] Anion gap [Moles/Vol] 16 mmol/L High 3 - 13 mmol/L [facility] AST [Catalytic activity/Vol] 208 U/L High 15 - 46 U/L [facility] Bilirubin [Mass/Vol] 0.7 mg/dL 0.2 - 1 .3 mg/dL [facility] Calcium [Mass/Vol] 8.8 mg/dL 8.4 - 10. 4 mg/dL [facility] Chloride [Moles/Vol] 100 mmol/L 98 - 10 7 mmol/L [facility] CO2 [Moles/Vol] 18 mmol/L Low 22 - 30 mmol/L [facility] Creatinine [Mass/Vol] 0.86 mg/dL 0.66 - 1.25 mg/dL [facility] GFR/1.73 sq M.predicted MDRD (S/P/Bld) [Vol rate/Area] - PINF [facility] Comment on above: Calculation based on the Chronic Kidney Disease Epidemiology Collaboration (CKD-EPI) equation refit without adjustment for race Glucose [Mass/Vol] 111 mg/dL High 70 - 100 mg/dL [facility] Potassium [Moles/Vol] 4.3 mmol/L 3.5 - 5.1 mmol/L [facility] Protein [Mass/Vol] 7.3 g/dL 6.3 - 8.2 g/dL [facility] Sodium [Moles/Vol] 134 mmol/L Low 135 - 145 mmol/L [facility] Urea nitrogen [Mass/Vol] 4 mg/dL Low 9 - 20 mg/dL [facility] Ethanol (Bld) [Mass/Vol]Orde red By: Diane Urbina on 04-02-2023 Ethanol [Mass/Vol] 0.352 g/dL Critically high 0.000 - 0.010 g/dL [facility] Interpretation and review of laboratory results Abnormal [facility] Laboratory - Chemistry and C hemistry - challengeon 04-02-2023 CO2 [Moles/Vol] 19.0 mmol/L Low 24.0 - 28.0 mmol/L [facility] HCO3 (Bld) [Moles/Vol] 18.4 mmol/L Low 23.0 - 27.0 mmol/L [facility] Oxygen (Bld) [Partial pressure] 168 mm[Hg] High [facility] pH (Bld) 7.363 [pH] 7.330 - 7.[address] [facility] CRP [Mass/Vol] mg/L NINF - 10.0 mg/L [facility] Lipase [Catalytic activity/Vol] 365 U/L High 23 - 300 U/L [facility] Laboratory - Drug toxicology Ordered By: Ashly Okeefe on 04-02-2023 Amphetamines Screen method >1000 ng/mL Ql (U) Negative [facility] Barbiturates Screen method >200 ng/mL Ql (U) Positive [facility] Benzodiazepines Ql (U) Negative [facility] Methadone Screen Ql (U) Negative [facility] Opiates Screen Ql (U) Negative [facility] oxyCODONE Ql (U) Negative [facility] Phencyclidine Ql (U) Negative [facility] Laboratory - Microbiology an d Antimicrobial susceptibilityon 04-02-2023 SARS-CoV-2 (COVID-19) Ag IA.rapid Ql (Resp) Negative Negative [facility] Comment on above: A negative result do es not rule out the possibility of SARS-CoV-2 infection. NAAT-based methods should be considered for symptomatic patients presenting greater than seven days after onset of symptoms. Method: Lateral flow immunoassay. Fact sheets for healthcare providers and patients can be found at the following sites: https://www.fda.gov/media/895359/download https://www.fda.gov/media/402278/download No Panel InformationOrdered By: Ashly Okeefe on 04-02-2023 COCAINE METAB. SCREEN Negative [facility] The expected value f or all [...] is needed, request confirmation under separate order. [facility] No Panel Informationon 04-02 BASE EXCESS -7.0 mmol/L Low -3.0 - 3.0 mmol/L [facility] Interpretation and review of laboratory results Abnormal [facility] pCO2 [address] [facility] Source Of Oxygen Room Air [facility] Interpretation and review of laboratory results Abnormal [facility] Radiology Study observation (narrative) [facility] [facility] SARS-CoV-2 (COVID-19) Ag IA. rapid Ql (Resp)on 04-02-2023 Interpretation and review of laboratory results Normal [facility] US Abdomenon 04-02-2023 1. Diffuse hepatic steatosis. No acute finding. Report Dictated on Electronically Signed By: Ruperto Wheeler Electronically Signed Date/Time: 04/02/2023 5:54 PM [facility] RADIOLOGY SYSTEM [facility] 1960 [id number] Exam Date/Time: 04/02/2023 17:47 Procedure: US ABDOMEN [...] difficult to visualize secondary to bowel gas. [facility] RADIOLOGY [facility] Ruperto Wheeler MD - 04/02/2023 Patient Name: WOODY NI : 1960 [facility]#: [id number] Exam Date/Time: 04/02/2023 17:47 Procedure: US ABDOMEN [...] Electronically Signed Date/Time: 04/02/2023 5:54 PM EDT [facility] US AbdomenOrdered By: Ruperto díaz on 04-02-2023 [email or web address] Work Phone: Urinalysis complete panel (U )on 04-02-2023 Bilirubin Ql (U) Negative Negative mg/dL [facility] Clarity (U) Clear Clear [facility] Color (U) Colorless Lt. Yellow [facility] Glucose Ql (U) Normal Normal (<70) mg/dL [facility] Hemoglobin Ql (U) Negative Negative mg/dL [facility] Interpretation and review of laboratory results Abnormal [facility] Ketones (U) [Mass/Vol] Negative Negat zenia mg/dL [facility] Leukocyte esterase Test strip Ql (U) Negative Negative Emma/uL [facility] Nitrite Ql (U) Negative Negative [facility] pH (U) 5.0 [pH] 5.0 - 8.[address] [facility] Protein (U) [Mass/Vol] Negative Negat zenia mg/dL [facility] Specific gravity (U) [Rel density] 1.002 Low 1.005 - 1.[address] [facility] Urobilinogen (U) [Mass/Vol] Normal Normal (0-1) mg/dL [facility] Vital signson 04-02-2023 Oxygen saturation in Blood 99.0 % High 60.0 - 80.0 % [facility] XR Chest View and Abdomen Medeiros pine and [place] 04-02-2023 1. No acute finding. Possible ingested pill or other foreign body lower right hemipelvis. Report Dictated on Electronically Signed By: Ruperto Wheeler Electronically Signed Date/Time: 04/02/2023 6:15 PM EDT [facility] [employer] [facility] Patient Name: WOODY NI : 1960 [...] intraperitoneal gas seen. Nonspecific bowel gas pattern. Palmer density in the lower right hemipelvis could represent an ingested pill or other foreign body measuring about 12 x 4.5 mm. [facility] Ruperto Wheeler MD - 04/02/2023 [...] intraperitoneal gas seen. Nonspecific bowel gas pattern. Palmer density in the lower right hemipelvis could represent an ingested pill or other foreign body measuring about 12 x 4.5 mm. IMPRESSION: 1. No acute finding. Possible ingested pill or other foreign body lower right hemipelvis. Report Dictated on Electronically Signed By: Ruperto Wheeler Electronically Signed Date/Time: 04/02/2023 6:15 PM EDT [email or web address] XR Chest View and Abdomen Emdeiros pine and UprightOrdered By: Ruperto Wheeler on 04-02-2023 [email or web address] [facility] Work Phone: Basic metabolic 1998 panelon 02-14-2023 Anion gap [Moles/Vol] 0 mmol/L Low 3 - 13 mmol/L [facility] Calcium [Mass/Vol] 9.6 mg/dL 8.4 - 10. 4 mg/dL [facility] Chloride [Moles/Vol] 103 mmol/L 98 - 10 7 mmol/L [facility] CO2 [Moles/Vol] 24 mmol/L 22 - 30 mmol/L [facility] Creatinine [Mass/Vol] 1.23 mg/dL 0.66 - 1.25 mg/dL [facility] GFR/1.73 sq M.predicted MDRD (S/P/Bld) [Vol rate/Area] 66.0 mL/min/{1.73_m2} - PINF [facility] Comment on above: Calculation based on the Chronic Kidney Disease Epidemiology Collaboration (CKD-EPI) equation refit without adjustment for race Glucose [Mass/Vol] 91 mg/dL 70 - 100 mg/dL [facility] Interpretation and review of laboratory results Abnormal [facility] Potassium [Moles/Vol] 4.4 mmol/L 3.5 - 5.1 mmol/L [facility] Sodium [Moles/Vol] 128 mmol/L Low 135 - 145 mmol/L [facility] Urea nitrogen [Mass/Vol] 15 mg/dL 9 - 20 mg/dL [facility] Laboratory - Chemistry and C hemistry - challengeon 02-13-2023 Sodium [Moles/Vol] 128 mmol/L Low 135 - 145 mmol/L [facility] Sodium (24H U) [Mass/Vol] mmol/L Low 30 - 90 mmol/L [facility] Sodium [Moles/Vol] 125 mmol/L Low 135 - 145 mmol/L [facility] No Panel Informationon 02-13 Interpretation and review of laboratory results Abnormal [facility] Interpretation and review of laboratory results Abnormal [facility] Interpretation and review of laboratory results Abnormal [facility] No Panel InformationOrdered By: Aminta Ackreman on 02-13-2023 Interpretation and review of laboratory results Abnormal [facility] OSMOLALITY, URINE 111 Low [facility] Basic metabolic 1998 panelon 02-12-2023 Anion gap [Moles/Vol] 5 mmol/L 3 - 13 mmol/L [facility] Calcium [Mass/Vol] 8.3 mg/dL Low 8.4 - 10. 4 mg/dL [facility] Chloride [Moles/Vol] 100 mmol/L 98 - 10 7 mmol/L [facility] CO2 [Moles/Vol] 20 mmol/L Low 22 - 30 mmol/L [facility] Creatinine [Mass/Vol] 1.36 mg/dL High 0.66 - 1.25 mg/dL [facility] GFR/1.73 sq M.predicted MDRD (S/P/Bld) [Vol rate/Area] 58.5 mL/min/{1.73_m2} Low - PINF [facility] Comment on above: Calculation based on the Chronic Kidney Disease Epidemiology Collaboration (CKD-EPI) equation refit without adjustment for race Glucose [Mass/Vol] 104 mg/dL High 70 - 100 mg/dL [facility] Interpretation and review of laboratory results Abnormal [facility] Potassium [Moles/Vol] 4.5 mmol/L 3.5 - 5.1 mmol/L [facility] Sodium [Moles/Vol] 125 mmol/L Low 135 - 145 mmol/L [facility] Urea nitrogen [Mass/Vol] 15 mg/dL 9 - 20 mg/dL [facility] CBC panel Auto (Bld)Ordered By: Sandy Nance on 02-12-2023 Erythrocyte distribution width (RBC) [Ratio] 13.7 % 11.5 - 14.5 % [facility] Hematocrit (Bld) [Volume fraction] 28.3 % Low 40.0 - 52.0 % [facility] Hemoglobin (Bld) [Mass/Vol] 9.8 g/dL Low 13.0 - 18.0 g/dL [facility] Interpretation and review of laboratory results Abnormal [facility] MCH (RBC) [Entitic mass] 33.9 pg 26.0 - 34.[address] [facility] MCHC (RBC) [Mass/Vol] 34.8 % 32.0 - 36.0 % [facility] MCV (RBC) [Entitic vol] 97.4 fL 80.0 - 98.[address] [facility] Platelet mean volume (Bld) [Entitic vol] 8.2 fL 7.4 - 12.[address] [facility] Platelets (Bld) [#/Vol] 79 10*3/uL Low 140 - 440 10*3/uL [facility] RBC (Bld) [#/Vol] 2.91 10*6/uL Low 4.40 - 5.9 0 10*6/uL [facility] WBC (Bld) [#/Vol] 2.3 10*3/uL Low 3.6 - 10.7 10*3/uL [facility] Comprehensive metabolic 1998 panelon 02-12-2023 Albumin [Mass/Vol] 3.4 g/dL Low 3.5 - 5.0 g/dL [facility] ALP [Catalytic activity/Vol] 57 U/L 38 - 126 U/L [facility] ALT [Catalytic activity/Vol] 86 U/L High 0 - 49 U/L [facility] Anion gap [Moles/Vol] 2 mmol/L Low 3 - 13 mmol/L [facility] AST [Catalytic activity/Vol] 123 U/L High 15 - 46 U/L [facility] Bilirubin [Mass/Vol] 0.7 mg/dL 0.2 - 1 .3 mg/dL [facility] Calcium [Mass/Vol] 8.0 mg/dL Low 8.4 - 10. 4 mg/dL [facility] Chloride [Moles/Vol] 100 mmol/L 98 - 10 7 mmol/L [facility] CO2 [Moles/Vol] 23 mmol/L 22 - 30 mmol/L [facility] Creatinine [Mass/Vol] 1.53 mg/dL High 0.66 - 1.25 mg/dL [facility] GFR/1.73 sq M.predicted MDRD (S/P/Bld) [Vol rate/Area] 50.8 mL/min/{1.73_m2} Low - PINF [facility] Comment on above: Calculation based on the Chronic Kidney Disease Epidemiology Collaboration (CKD-EPI) equation refit without adjustment for race Glucose [Mass/Vol] 94 mg/dL 70 - 100 mg/dL [facility] Interpretation and review of laboratory results Abnormal [facility] Potassium [Moles/Vol] 4.0 mmol/L 3.5 - 5.1 mmol/L [facility] Protein [Mass/Vol] 5.8 g/dL Low 6.3 - 8.2 g/dL [facility] Sodium [Moles/Vol] 124 mmol/L Low 135 - 145 mmol/L [facility] Urea nitrogen [Mass/Vol] 13 mg/dL 9 - 20 mg/dL [facility] Free T3 [Mass/Vol]on 023 Interpretation and review of laboratory results Normal [facility] Free T4 [Mass/Vol]on 023 Free T4 Dialysis [Mass/Vol] 1.83 ng/dL 0.78 - 2.19 ng/dL [facility] Interpretation and review of laboratory results Normal [facility] Laboratory - Chemistry and C hemistry - challengeon 02-12-2023 Sodium [Moles/Vol] 124 mmol/L Low 135 - 145 mmol/L [facility] Free T3 [Mass/Vol] 2.81 pg/mL 2.77 - 5. 27 pg/mL [facility] Sodium [Moles/Vol] 124 mmol/L Low 135 - 145 mmol/L [facility] No Panel Informationon 02-12 Interpretation and review of laboratory results Abnormal [facility] Interpretation and review of laboratory results Abnormal [facility] US Abdomenon 02-12-2023 1. No acute sonograp hic abnormality identified. 2. Hepatic steatosis. 3. Thinning of the renal cortex, which could relate to medical renal disease. Report Dictated on Electronically Signed By: Cuco Melara Electronically Signed Date/Time: 02/12/2023 9:44 AM [facility] [employer] RADIOLOGY SYSTEM [facility] NI : 1960 [id number] Exam Date/Time: 02/12/2023 08:56 Procedure: US ABDOMEN [...] Visualized portions are unremarkable. OTHER FINDINGS None. [facility] Cuco Melara MD - 02/12/2023 [...] Electronically Signed Date/Time: 02/12/2023 9:44 AM EDT [email or web address] Radiology Study observation (narrative) [employer] US AbdomenOrdered By: Remigio Melara on 02-12-2023 [employer] Work Phone: Basic metabolic 1998 panelon 02-11-2023 Anion gap [Moles/Vol] 8 mmol/L 3 - 13 mmol/L [email or web address] [facility] Calcium [Mass/Vol] 7.6 mg/dL Low 8.4 - 10. 4 mg/dL [email or web address] [facility] Chloride [Moles/Vol] 94 mmol/L Low 98 - 10 7 mmol/L [facility] CO2 [Moles/Vol] 20 mmol/L Low 22 - 30 mmol/L [facility] Creatinine [Mass/Vol] 1.36 mg/dL High 0.66 - 1.25 mg/dL [facility] GFR/1.73 sq M.predicted MDRD (S/P/Bld) [Vol rate/Area] 58.5 mL/min/{1.73_m2} Low - PINF [facility] Comment on above: Calculation based on the Chronic Kidney Disease Epidemiology Collaboration (CKD-EPI) equation refit without adjustment for race Glucose [Mass/Vol] 87 mg/dL 70 - 100 mg/dL [facility] Interpretation and review of laboratory results Abnormal [facility] Potassium [Moles/Vol] 4.2 mmol/L 3.5 - 5.1 mmol/L [facility] Sodium [Moles/Vol] 121 mmol/L Low 135 - 145 mmol/L [facility] Urea nitrogen [Mass/Vol] 13 mg/dL 9 - 20 mg/dL [facility] Slightly hemolyzed [facility] Anion gap [Moles/Vol] 10 mmol/L 3 - 13 mmol/L [facility] Calcium [Mass/Vol] 8.4 mg/dL 8.4 - 10. 4 mg/dL [facility] Chloride [Moles/Vol] 88 mmol/L Low 98 - 10 7 mmol/L [facility] CO2 [Moles/Vol] 21 mmol/L Low 22 - 30 mmol/L [facility] Creatinine [Mass/Vol] 1.35 mg/dL High 0.66 - 1.25 mg/dL [facility] GFR/1.73 sq M.predicted MDRD (S/P/Bld) [Vol rate/Area] 59.0 mL/min/{1.73_m2} Low - PINF [facility] Comment on above: Calculation based on the Chronic Kidney Disease Epidemiology Collaboration (CKD-EPI) equation refit without adjustment for race Glucose [Mass/Vol] 126 mg/dL High 70 - 100 mg/dL [facility] Interpretation and review of laboratory results Abnormal [facility] Potassium [Moles/Vol] 3.8 mmol/L 3.5 - 5.1 mmol/L [facility] Sodium [Moles/Vol] 120 mmol/L Low 135 - 145 mmol/L [facility] Urea nitrogen [Mass/Vol] 13 mg/dL 9 - 20 mg/dL [facility] C. difficile toxin genes SHANE +probe Ql (Stl)on 02-11-2023 C. difficile toxin PCR Not detected Not Detecte d [facility] Interpretation and review of laboratory results Normal [facility] C. difficile infecti on is unlikely to be present. Methodology: Real-time PCR [facility] CBC W Auto Differential pane l (Bld)Ordered By: Montrell Charles on 02-11-2023 Basophils (Bld) [#/Vol] 0.0 10*3/uL 0.0 - 0.2 10*3/uL [facility] Basophils/100 WBC (Bld) 0.5 % 0.0 - 2.0 % [facility] Eosinophils (Bld) [#/Vol] 0.0 10*3/uL 0.0 - 0.5 10*3/uL [facility] Eosinophils/100 WBC (Bld) 0.6 % Low 1.0 - 6.0 % [facility] Erythrocyte distribution width (RBC) [Ratio] 13.5 % 11.5 - 14.5 % [facility] Hematocrit (Bld) [Volume fraction] 28.1 % Low 40.0 - 52.0 % [facility] Hemoglobin (Bld) [Mass/Vol] 9.4 g/dL Low 13.0 - 18.0 g/dL [facility] Interpretation and review of laboratory results Abnormal [facility] Lymphocytes (Bld) [#/Vol] 0.6 10*3/uL Low 1.0 - 4.3 10*3/uL [facility] Lymphocytes/100 WBC (Bld) 24.3 % 20.0 - 40.0 % [facility] MCH (RBC) [Entitic mass] 32.7 pg 26.0 - 34.[address] [facility] MCHC (RBC) [Mass/Vol] 33.5 % 32.0 - 36.0 % [facility] MCV (RBC) [Entitic vol] 97.9 fL 80.0 - 98.[address] [facility] Monocytes (Bld) [#/Vol] 0.4 10*3/uL 0.0 - 0.8 10*3/uL [facility] Monocytes/100 WBC (Bld) 15.9 % High 2.0 - 10.0 % [facility] Neutrophils (Bld) [#/Vol] 1.4 10*3/uL Low 1.8 - 7.0 10*3/uL [facility] Neutrophils/100 WBC (Bld) 58.7 % 40.0 - 80.0 % [facility] Nucleated RBC/100 WBC (Bld) [Ratio] 0.1 % [facility] Platelet mean volume (Bld) [Entitic vol] 8.6 fL 7.4 - 12.[address] [facility] Platelets (Bld) [#/Vol] 77 10*3/uL Low 140 - 440 10*3/uL [facility] RBC (Bld) [#/Vol] 2.87 10*6/uL Low 4.40 - 5.9 0 10*6/uL [facility] WBC (Bld) [#/Vol] 2.4 10*3/uL Low 3.6 - 10.7 10*3/uL [facility] Gastrointestinal pathogens p mac SHANE+probe (Stl)Ordered By: Nikos Mcdonough on 02-11-2023 Adenovirus F 40/41 Not detected Not Detected [facility] Astrovirus Not detected Not Detected [facility] Campylobacter Not detected Not Detected [facility] Cryptosporidium Not detected Not Detected [facility] Cyclospora cayetanensis Not detected Not Detected [facility] Entamoeba histolytica Not detected Not Detected [facility] Enterotoxigenic E coli (ETEC) Not detected Not Detected [facility] Giardia lamblia Not detected Not Detected [facility] Interpretation and review of laboratory results Normal [facility] Norovirus GI/GII Not detected Not Detected [facility] Plesiomonas shigelloides Not detected Not Detected [facility] Rotavirus A Not detected Not Detected [facility] Salmonella Not detected Not Detected [facility] Sapovirus Not detected Not Detected [facility] Shiga toxin-producing E coli (STEC) Not detected Not Detected [facility] Shigella/Enteroinvasiv e E coli (EIEC) Not detected Not Detected [facility] Vibrio cholerae Not detected Not Detected [facility] Vibrio species Not detected Not Detected [facility] Yersinia enterocolitica Not detected Not Detected [facility] Methodology: Multipl ex PCR [facility] Iron and Iron binding capaci ty panelon 02-11-2023 Interpretation and review of laboratory results Abnormal [facility] Iron [Mass/Vol] 89 ug/dL 49 - 181 ug/dL [facility] Iron binding capacity [Mass/Vol] 237 ug/dL Low 261 - 497 ug/dL [facility] Iron saturation [Mass fraction] 38 % 15 - 50 % [facility] Laboratory - Chemistry and C hemistry - challengeon 02-11-2023 Sodium [Moles/Vol] 121 mmol/L Low 135 - 145 mmol/L [facility] Sodium [Moles/Vol] 121 mmol/L Low 135 - 145 mmol/L [facility] TSH Qn 4.885 m[IU]/L High [facility] Sodium (24H U) [Mass/Vol] 7 mmol/L Low 30 - 90 mmol/L [facility] Glucose [Mass/Vol] 89 mg/dL 70 - 100 mg/dL [facility] No Panel Informationon 02-11 Interpretation and review of laboratory results Abnormal [facility] Interpretation and review of laboratory results Abnormal [facility] Interpretation and review of laboratory results Abnormal [facility] Interpretation and review of laboratory results Normal [facility] Performed by: Hanna Hernandez [facility], [address] [place] [id number] CLIA ID: [id number] [facility] No Panel InformationOrdered By: Ophelia Mane on 02-11-2023 Interpretation and review of laboratory results Abnormal [facility] OSMOLALITY, URINE 143 Low [facility] TSH Qnon 02-11-2023 Interpretation and review of laboratory results Abnormal [facility] Urinalysis complete panel (U )on 02-11-2023 Bilirubin Ql (U) Negative Negative mg/dL [facility] Clarity (U) Clear Clear [facility] Color (U) Light Yellow Lt. Yellow [facility] Glucose Ql (U) Normal Normal (<70) mg/dL [facility] Hemoglobin Ql (U) Negative Negative mg/dL [facility] Interpretation and review of laboratory results Normal [facility] Ketones (U) [Mass/Vol] Negative Negat zenia mg/dL [facility] Leukocyte esterase Test strip Ql (U) Negative Negative Emma/uL [facility] Nitrite Ql (U) Negative Negative [facility] pH (U) 6.0 [pH] 5.0 - 8.[address] [facility] Protein (U) [Mass/Vol] Negative Negat zenia mg/dL [facility] Specific gravity (U) [Rel density] 1.005 1.005 - 1.[address] [facility] Urobilinogen (U) [Mass/Vol] Normal Normal (0-1) mg/dL [facility] CBC W Auto Differential pane l (Bld)Ordered By: Ashly Okeefe on 02-10-2023 Basophils (Bld) [#/Vol] 0.0 10*3/uL 0.0 - 0.2 10*3/uL [facility] Basophils/100 WBC (Bld) 0.2 % 0.0 - 2.0 % [facility] Eosinophils (Bld) [#/Vol] 0.0 10*3/uL 0.0 - 0.5 10*3/uL [facility] Eosinophils/100 WBC (Bld) 0.2 % Low 1.0 - 6.0 % [facility] Erythrocyte distribution width (RBC) [Ratio] 12.2 % 11.5 - 14.5 % [facility] Hematocrit (Bld) [Volume fraction] 32.1 % Low 40.0 - 52.0 % [facility] Hemoglobin (Bld) [Mass/Vol] 11.7 g/dL Low 13.0 - 18.0 g/dL [facility] Immature granulocytes (Bld) [#/Vol] 0.1 10*3/uL High NINF - 0.0 10*3/uL [facility] Immature granulocytes/100 WBC (Bld) 1.8 % High NINF - 0.0 % [facility] Interpretation and review of laboratory results Abnormal [facility] Lymphocytes (Bld) [#/Vol] 0.7 10*3/uL Low 1.0 - 4.3 10*3/uL [facility] Lymphocytes/100 WBC (Bld) 13.5 % Low 20.0 - 40.0 % [facility] MCH (RBC) [Entitic mass] 32.9 pg 26.0 - 34.[address] [facility] MCHC (RBC) [Mass/Vol] 36.4 % High 32.0 - 36.0 % [facility] MCV (RBC) [Entitic vol] 90.2 fL 80.0 - 98.[address] [facility] Monocytes (Bld) [#/Vol] 0.6 10*3/uL 0.0 - 0.8 10*3/uL [facility] Monocytes/100 WBC (Bld) 12.9 % High 2.0 - 10.0 % [facility] Neutrophils (Bld) [#/Vol] 3.5 10*3/uL 1.8 - 7.0 10*3/uL [facility] Neutrophils/100 WBC (Bld) 71.4 % 40.0 - 80.0 % [facility] Platelet mean volume (Bld) [Entitic vol] 9.6 fL 7.4 - 12.[address] [facility] Comment on above: MPV is a calculated measurement using platelet volume ratio Platelets (Bld) [#/Vol] 108 10*3/uL Low 140 - 440 10*3/uL [facility] RBC (Bld) [#/Vol] 3.56 10*6/uL Low 4.40 - 5.9 0 10*6/uL [facility] WBC (Bld) [#/Vol] 4.9 10*3/uL 3.6 - 10.7 10*3/uL [facility] Comprehensive metabolic 1998 panelon 02-10-2023 Albumin [Mass/Vol] 4.6 g/dL 3.5 - 5.0 g/dL [facility] ALP [Catalytic activity/Vol] 80 U/L 38 - 126 U/L [facility] ALT [Catalytic activity/Vol] 121 U/L High 0 - 49 U/L [facility] Anion gap [Moles/Vol] 14 mmol/L High 3 - 13 mmol/L [facility] AST [Catalytic activity/Vol] 148 U/L High 15 - 46 U/L [facility] Bilirubin [Mass/Vol] 1.3 mg/dL 0.2 - 1 .3 mg/dL [facility] Calcium [Mass/Vol] 9.0 mg/dL 8.4 - 10. 4 mg/dL [facility] Chloride [Moles/Vol] 84 mmol/L Low 98 - 10 7 mmol/L [facility] CO2 [Moles/Vol] 19 mmol/L Low 22 - 30 mmol/L [facility] Creatinine [Mass/Vol] 1.50 mg/dL High 0.66 - 1.25 mg/dL [facility] GFR/1.73 sq M.predicted MDRD (S/P/Bld) [Vol rate/Area] 52.0 mL/min/{1.73_m2} Low - PINF [facility] [facility] Comment on above: Calculation based on the Chronic Kidney Disease Epidemiology Collaboration (CKD-EPI) equation refit without adjustment for race Glucose [Mass/Vol] 151 mg/dL High 70 - 100 mg/dL [facility] Interpretation and review of laboratory results Abnormal [facility] Potassium [Moles/Vol] 3.8 mmol/L 3.5 - 5.1 mmol/L [facility] Protein [Mass/Vol] 7.7 g/dL 6.3 - 8.2 g/dL [facility] Sodium [Moles/Vol] 118 mmol/L Critically low 135 - 1 45 mmol/L [facility] Urea nitrogen [Mass/Vol] 13 mg/dL 9 - 20 mg/dL [facility] Laboratory - Chemistry and C hemistry - challengeon 02-10-2023 Lipase [Catalytic activity/Vol] 152 U/L 23 - 300 U/L [facility] Laboratory - Coagulationon 0 02-10-2023 PT Coag (Bld) [Time] 12.3 s High 9.0 - 12.0 s [facility] Lipase [Catalytic activity/V ol]on 02-10-2023 Interpretation and review of laboratory results Normal [facility] PT Coag (Bld) [Time]on 02-10 INR Coag (PPP) [Relative time] 1.1 {INR} 0.9 - 1.[address] [facility] Comment on above: Recommended Anticoag ulant [...] Interpretation and review of laboratory results Abnormal [facility] Urinalysis complete panel (U )on 02-10-2023 Bilirubin Ql (U) Negative Negative mg/dL [facility] Clarity (U) Clear Clear [facility] Color (U) Light Yellow Lt. Yellow [facility] Glucose Ql (U) Normal Normal (<70) mg/dL [facility] Hemoglobin Ql (U) Negative Negative mg/dL [facility] Interpretation and review of laboratory results Normal [facility] Ketones (U) [Mass/Vol] Negative Negat zenia mg/dL [facility] Leukocyte esterase Test strip Ql (U) Negative Negative Emma/uL [facility] Nitrite Ql (U) Negative Negative [facility] pH (U) 5.5 [pH] 5.0 - 8.[address] [facility] Protein (U) [Mass/Vol] Negative Negat zenia mg/dL [facility] Specific gravity (U) [Rel density] 1.008 1.005 - 1.[address] [facility] Urobilinogen (U) [Mass/Vol] Normal Normal (0-1) mg/dL [facility] CNCOon 01-21-2023 CNCO Letter Text Normal [facility] Laboratory - Chemistry and C hemistry - challengeon 01-05-2023 Glucose [Mass/Vol] 169 mg/dL High 70 - 100 mg/dL [facility] Glucose [Mass/Vol] 114 mg/dL High 70 - 100 mg/dL [facility] No Panel Informationon 01-05 Interpretation and review of laboratory results Abnormal [facility] Performed by: [facility], [address] [place] [address] CLIA ID: [id number] [facility] Interpretation and review of laboratory results Abnormal [facility] Performed by: [facility], [address] [place] [address] CLIA ID: [id number] [facility] Basic metabolic 1998 panelon 12-25-2022 Anion gap [Moles/Vol] 5 mmol/L 3 - 13 mmol/L [facility] Calcium [Mass/Vol] 8.7 mg/dL 8.4 - 10. 4 mg/dL [facility] Chloride [Moles/Vol] 102 mmol/L 98 - 10 7 mmol/L [facility] CO2 [Moles/Vol] 23 mmol/L 22 - 30 mmol/L [facility] Creatinine [Mass/Vol] 1.36 mg/dL High 0.66 - 1.25 mg/dL [facility] GFR/1.73 sq M.predicted MDRD (S/P/Bld) [Vol rate/Area] 58.8 mL/min/{1.73_m2} Low - PINF [facility] Comment on above: Calculation based on the Chronic Kidney Disease Epidemiology Collaboration (CKD-EPI) equation refit without adjustment for race Glucose [Mass/Vol] 110 mg/dL High 70 - 100 mg/dL [facility] Interpretation and review of laboratory results Abnormal [facility] Potassium [Moles/Vol] 4.0 mmol/L 3.5 - 5.1 mmol/L [facility] Sodium [Moles/Vol] 131 mmol/L Low 135 - 145 mmol/L [facility] Urea nitrogen [Mass/Vol] 13 mg/dL 9 - 20 mg/dL [facility] Slightly Hemolyzed [facility] Laboratory - Coagulationon 0 12-25-2022 aPTT Coag (PPP) [Time] 24.2 s 20.0 - 30.[address] [facility] INR Coag (PPP) [Relative time] 1.2 {INR} High 0.9 - 1.[address] [facility] Comment on above: Recommended Anticoag ulant [...] 12.6 s High 9.0 - 12.0 s [facility] No Panel Informationon 12-25 Interpretation and review of laboratory results Abnormal [facility] Bacteria identified Cx Nom ( U)Ordered By: Ann Perry on 12-24-2022 Interpretation and review of laboratory results Normal [facility] Bilirubin.indirect [Mass/Vol ]on 12-24-2022 Bilirubin.conjugated [Mass/Vol] 0.0 mg/dL 0.0 - 0.3 mg/dL [facility] Interpretation and review of laboratory results Normal [facility] CBC panel Auto (Bld)Ordered By: Montrell Charles on 12-24-2022 Erythrocyte distribution width (RBC) [Ratio] 13.2 % 11.5 - 14.5 % [facility] Hematocrit (Bld) [Volume fraction] 34.9 % Low 40.0 - 52.0 % [facility] Hemoglobin (Bld) [Mass/Vol] 11.7 g/dL Low 13.0 - 18.0 g/dL [facility] Interpretation and review of laboratory results Abnormal [facility] MCH (RBC) [Entitic mass] 33.4 pg 26.0 - 34.[address] [facility] MCHC (RBC) [Mass/Vol] 33.6 % 32.0 - 36.0 % [facility] MCV (RBC) [Entitic vol] 99.2 fL High 80.0 - 98.[address] [facility] Platelet mean volume (Bld) [Entitic vol] 8.6 fL 7.4 - 12.[address] [facility] Platelets (Bld) [#/Vol] 70 10*3/uL Low 140 - 440 10*3/uL [facility] RBC (Bld) [#/Vol] 3.52 10*6/uL Low 4.40 - 5.9 0 10*6/uL [facility] WBC (Bld) [#/Vol] 2.5 10*3/uL Low 3.6 - 10.7 10*3/uL [facility] Comprehensive metabolic 1998 panelon 12-24-2022 Albumin [Mass/Vol] 3.8 g/dL 3.5 - 5.0 g/dL [facility] ALP [Catalytic activity/Vol] 52 U/L 38 - 126 U/L [facility] ALT [Catalytic activity/Vol] 169 U/L High 0 - 49 U/L [facility] Anion gap [Moles/Vol] 5 mmol/L 3 - 13 mmol/L [facility] AST [Catalytic activity/Vol] 141 U/L High 15 - 46 U/L [facility] Bilirubin [Mass/Vol] 1.4 mg/dL High 0.2 - 1 .3 mg/dL [facility] Calcium [Mass/Vol] 9.0 mg/dL 8.4 - 10. 4 mg/dL [facility] Chloride [Moles/Vol] 101 mmol/L 98 - 10 7 mmol/L [facility] CO2 [Moles/Vol] 22 mmol/L 22 - 30 mmol/L [facility] Creatinine [Mass/Vol] 2.09 mg/dL High 0.66 - 1.25 mg/dL [facility] GFR/1.73 sq M.predicted MDRD (S/P/Bld) [Vol rate/Area] 35.1 mL/min/{1.73_m2} Low - PINF [facility] Comment on above: Calculation based on the Chronic Kidney Disease Epidemiology Collaboration (CKD-EPI) equation refit without adjustment for race Glucose [Mass/Vol] 89 mg/dL 70 - 100 mg/dL [facility] Interpretation and review of laboratory results Abnormal [facility] Potassium [Moles/Vol] 3.7 mmol/L 3.5 - 5.1 mmol/L [facility] Protein [Mass/Vol] 6.4 g/dL 6.3 - 8.2 g/dL [facility] Sodium [Moles/Vol] 129 mmol/L Low 135 - 145 mmol/L [facility] Urea nitrogen [Mass/Vol] 21 mg/dL High 9 - 20 mg/dL [facility] Laboratory - Chemistry and C hemistry - challengeon 12-24-2022 Glucose [Mass/Vol] 115 mg/dL High 70 - 100 mg/dL [facility] Glucose [Mass/Vol] 98 mg/dL 70 - 100 mg/dL [facility] Glucose [Mass/Vol] 136 mg/dL High 70 - 100 mg/dL [facility] Glucose [Mass/Vol] 87 mg/dL 70 - 100 mg/dL [facility] Laboratory - Microbiology an d Antimicrobial susceptibilityOrdered By: Ann Perry on 12-24-2022 Bacteria identified Cx Nom (U) No growth (<1,000 CFU/mL) [facility] No Panel Informationon 12-24 Interpretation and review of laboratory results Abnormal [facility] Performed by: [facility], [address] [place] [id number] CLIA ID: [id number] [facility] Interpretation and review of laboratory results Normal [facility] Performed by: [facility], [address] [place] [address] CLIA ID: [id number] [facility] Interpretation and review of laboratory results Abnormal [facility] Performed by: [facility], [address] [facility] [address] CLIA ID: [id number] [facility] Interpretation and review of laboratory results Normal [facility] Performed by: [facility], [address] [place] [address] CLIA ID: [id number] [facility] Basic metabolic 1998 panelOr dered By: Daniel Allen on 12-23-2022 Anion gap [Moles/Vol] 7 mmol/L 3 - 13 mmol/L [facility] Calcium [Mass/Vol] 8.6 mg/dL 8.4 - 10. 4 mg/dL [facility] Chloride [Moles/Vol] 103 mmol/L 98 - 10 7 mmol/L [facility] CO2 [Moles/Vol] 18 mmol/L Low 22 - 30 mmol/L [facility] Creatinine [Mass/Vol] 5.24 mg/dL High 0.66 - 1.25 mg/dL [facility] GFR/1.73 sq M.predicted MDRD (S/P/Bld) [Vol rate/Area] 11.7 mL/min/{1.73_m2} Low - PINF [facility] Comment on above: Calculation based on the Chronic Kidney Disease Epidemiology Collaboration (CKD-EPI) equation refit without adjustment for race Glucose [Mass/Vol] 78 mg/dL 70 - 100 mg/dL [facility] Interpretation and review of laboratory results Abnormal [facility] Potassium [Moles/Vol] 4.3 mmol/L 3.5 - 5.1 mmol/L [facility] Sodium [Moles/Vol] 128 mmol/L Low 135 - 145 mmol/L [facility] Urea nitrogen [Mass/Vol] 41 mg/dL High 9 - 20 mg/dL [facility] CBC W Auto Differential pane l (Bld)Ordered By: Philip Medrano on 12-23-2022 Basophils (Bld) [#/Vol] 0.0 10*3/uL 0.0 - 0.2 10*3/uL [facility] Basophils/100 WBC (Bld) 0.5 % 0.0 - 2.0 % [facility] Eosinophils (Bld) [#/Vol] 0.1 10*3/uL 0.0 - 0.5 10*3/uL [facility] Eosinophils/100 WBC (Bld) 2.3 % 1.0 - 6.0 % [facility] Erythrocyte distribution width (RBC) [Ratio] 12.9 % 11.5 - 14.5 % [facility] Hematocrit (Bld) [Volume fraction] 33.8 % Low 40.0 - 52.0 % [facility] Hemoglobin (Bld) [Mass/Vol] 11.3 g/dL Low 13.0 - 18.0 g/dL [facility] Lymphocytes (Bld) [#/Vol] 1.2 10*3/uL 1.0 - 4.3 10*3/uL [facility] Lymphocytes/100 WBC (Bld) 39.2 % 20.0 - 40.0 % [facility] MCH (RBC) [Entitic mass] 33.4 pg 26.0 - 34.0 pg [facility] MCHC (RBC) [Mass/Vol] 33.5 % 32.0 - 36.0 % [facility] MCV (RBC) [Entitic vol] 99.5 fL High 80.0 - 98.[address] [facility] Monocytes (Bld) [#/Vol] 0.5 10*3/uL 0.0 - 0.8 10*3/uL [facility] Monocytes/100 WBC (Bld) 15.1 % High 2.0 - 10.0 % [facility] Neutrophils (Bld) [#/Vol] 1.3 10*3/uL Low 1.8 - 7.0 10*3/uL [facility] Neutrophils/100 WBC (Bld) 42.9 % 40.0 - 80.0 % [facility] Nucleated RBC/100 WBC (Bld) [Ratio] 0.0 % [facility] Platelet mean volume (Bld) [Entitic vol] 8.5 fL 7.4 - 12.4 fL [facility] Platelets (Bld) [#/Vol] 56 10*3/uL Low 140 - 440 10*3/uL [facility] RBC (Bld) [#/Vol] 3.39 10*6/uL Low 4.40 - 5.9 0 10*6/uL [facility] WBC (Bld) [#/Vol] 3.1 10*3/uL Low 3.6 - 10.7 10*3/uL [facility] Creatinine (U) [Mass/Vol]on 12-23-2022 CREATININE, URINE 34.6 mg/dL No Range [facility] Laboratory - Chemistry and C hemistry - challengeon 12-23-2022 Glucose [Mass/Vol] 82 mg/dL 70 - 100 mg/dL [facility] Glucose [Mass/Vol] 83 mg/dL 70 - 100 mg/dL [facility] Urea nitrogen (U) [Mass/Vol] 153 mg/dL No Range [facility] Chloride (U) [Moles/Vol] 51 mmol/L 19 - 209 mmol/L [facility] Sodium (24H U) [Mass/Vol] 30 mmol/L 30 - 90 mmol/L [facility] Glucose [Mass/Vol] 144 mg/dL High 70 - 100 mg/dL [facility] Glucose [Mass/Vol] 71 mg/dL 70 - 100 mg/dL [facility] Glucose [Mass/Vol] 72 mg/dL 70 - 100 mg/dL [facility] Laboratory - Urinalysison Protein (U) [Mass/Vol] 16 mg/dL High 0 - 12 mg/dL [facility] Manual differential performe d Ql (Bld)on 12-23-2022 Anisocytosis Ql (Bld) Slight Abnormal (none) [facility] Giant platelets LM Ql (Bld) Rare Abnormal (none) [facility] Leukocyte morphology finding Nom (Bld) Normal [facility] Ovalocytes LM Ql (Bld) Slight Abnormal (none) [facility] No Panel Informationon 12-23 Interpretation and review of laboratory results Normal [facility] Performed by: [facility], [address] [place] [address] CLIA ID: [id number] [facility] Interpretation and review of laboratory results Normal [facility] Performed by: [facility], [address] [place] [address] CLIA ID: [id number] [facility] Interpretation and review of laboratory results Normal [facility] Interpretation and review of laboratory results Abnormal [facility] Interpretation and review of laboratory results Abnormal [facility] Performed by: [facility], [address] [place] [address] CLIA ID: [id number] [facility] Interpretation and review of laboratory results Normal [facility] Performed by: [facility], [address] [place] [address] CLIA ID: [id number] [facility] Interpretation and review of laboratory results Normal [facility] Performed by: [facility], [address] [place] [address] CLIA ID: [id number] [facility] No Panel InformationOrdered By: Philip Medrano on 12-23-2022 Interpretation and review of laboratory results Abnormal [facility] Urinalysis complete panel (U )Ordered By: Aminta Ackerman on 12-23-2022 Bilirubin Ql (U) Negative Negative mg/dL [facility] Clarity (U) Clear Clear [facility] Color (U) Colorless Lt. Yellow [facility] Glucose Ql (U) Normal Normal (<70) mg/dL [facility] Hemoglobin Ql (U) Negative Negative mg/dL [facility] Interpretation and review of laboratory results Abnormal [facility] Ketones (U) [Mass/Vol] Negative Negat zenia mg/dL [facility] Leukocyte esterase Test strip Ql (U) Negative Negative Emma/uL [facility] Nitrite Ql (U) Negative Negative [facility] pH (U) 5.0 [pH] 5.0 - 8.[address] [facility] Protein (U) [Mass/Vol] Negative Negat zenia mg/dL [facility] Specific gravity (U) [Rel density] 1.004 Low 1.005 - 1.[address] [facility] Urobilinogen (U) [Mass/Vol] Normal Normal (0-1) mg/dL [facility] CBC W Auto Differential pane l (Bld)Ordered By: Ashly Okeefe on 12-22-2022 Basophils (Bld) [#/Vol] 0.0 10*3/uL 0.0 - 0.2 10*3/uL [facility] Basophils/100 WBC (Bld) 0.6 % 0.0 - 2.0 % [facility] Eosinophils (Bld) [#/Vol] 0.1 10*3/uL 0.0 - 0.5 10*3/uL [facility] Eosinophils/100 WBC (Bld) 1.6 % 1.0 - 6.0 % [facility] Erythrocyte distribution width (RBC) [Ratio] 11.9 % 11.5 - 14.5 % [facility] Hematocrit (Bld) [Volume fraction] 35.8 % Low 40.0 - 52.0 % [facility] Hemoglobin (Bld) [Mass/Vol] 12.3 g/dL Low 13.0 - 18.0 g/dL [facility] Immature granulocytes (Bld) [#/Vol] 0.0 10*3/uL NINF - 0.0 10*3/uL [facility] Immature granulocytes/100 WBC (Bld) 0.8 % High NINF - 0.0 % [facility] Interpretation and review of laboratory results Abnormal [facility] Lymphocytes (Bld) [#/Vol] 1.4 10*3/uL 1.0 - 4.3 10*3/uL [facility] Lymphocytes/100 WBC (Bld) 27.7 % 20.0 - 40.0 % [facility] MCH (RBC) [Entitic mass] 33.6 pg 26.0 - 34.0 pg [facility] MCHC (RBC) [Mass/Vol] 34.4 % 32.0 - 36.0 % [facility] MCV (RBC) [Entitic vol] 97.8 fL 80.0 - 98.0 fL [facility] Monocytes (Bld) [#/Vol] 0.7 10*3/uL 0.0 - 0.8 10*3/uL [facility] Monocytes/100 WBC (Bld) 13.6 % High 2.0 - 10.0 % [facility] Neutrophils (Bld) [#/Vol] 2.7 10*3/uL 1.8 - 7.0 10*3/uL [facility] Neutrophils/100 WBC (Bld) 55.7 % 40.0 - 80.0 % [facility] Platelet mean volume (Bld) [Entitic vol] 10.5 fL 7.4 - 12.4 fL [facility] Platelets (Bld) [#/Vol] 76 10*3/uL Low 140 - 440 10*3/uL [facility] RBC (Bld) [#/Vol] 3.66 10*6/uL Low 4.40 - 5.9 0 10*6/uL [facility] WBC (Bld) [#/Vol] 4.9 10*3/uL 3.6 - 10.7 10*3/uL [facility] This is an appended report. These results have been appended to a previously verified report. [employer] CT Abdomen WO contraston Patient Name: WOODY [...] discogenic degenerative changes. Stable retrolisthesis at L2-L3. [facility] Ryan White MD - 12/22/2022 [facility] 1960 [id number] Exam Date/Time: 12/22/2022 19:41 Procedure: CT ABDOMEN [...] Electronically Signed Date/Time: 12/22/2022 8:01 PM EST [facility]ative[facility] CT Abdomen WO contrastOrdere d By: Ryan White on 12-22-2022 [facility] Work Phone: Comprehensive metabolic 1998 panelon 12-22-2022 Albumin [Mass/Vol] 4.6 g/dL 3.5 - 5.0 g/dL [facility] ALP [Catalytic activity/Vol] 59 U/L 38 - 126 U/L [facility] ALT [Catalytic activity/Vol] 214 U/L High 0 - 49 U/L [facility] Anion gap [Moles/Vol] 9 mmol/L 3 - 13 mmol/L [facility] AST [Catalytic activity/Vol] 205 U/L High 15 - 46 U/L [facility] Bilirubin [Mass/Vol] 1.0 mg/dL 0.2 - 1 .3 mg/dL [facility] Calcium [Mass/Vol] 9.6 mg/dL 8.4 - 10. 4 mg/dL [facility] Chloride [Moles/Vol] 92 mmol/L Low 98 - 10 7 mmol/L [facility] CO2 [Moles/Vol] 22 mmol/L 22 - 30 mmol/L [facility] Creatinine [Mass/Vol] 6.62 mg/dL High 0.66 - 1.25 mg/dL [facility] GFR/1.73 sq M.predicted MDRD (S/P/Bld) [Vol rate/Area] 8.8 mL/min/{1.73_m2} Low - PINF [facility] Comment on above: Calculation based on the Chronic Kidney Disease Epidemiology Collaboration (CKD-EPI) equation refit without adjustment for race Glucose [Mass/Vol] 101 mg/dL High 70 - 100 mg/dL [facility] Interpretation and review of laboratory results Abnormal [facility] Potassium [Moles/Vol] 5.1 mmol/L 3.5 - 5.1 mmol/L [facility] Protein [Mass/Vol] 7.8 g/dL 6.3 - 8.2 g/dL [facility] Sodium [Moles/Vol] 124 mmol/L Low 135 - 145 mmol/L [facility] Urea nitrogen [Mass/Vol] 46 mg/dL High 9 - 20 mg/dL [facility] Laboratory - Chemistry and C hemistry - challengeon 12-22-2022 Lipase [Catalytic activity/Vol] 111 U/L 23 - 300 U/L [facility] Lipase [Catalytic activity/V ol]on 12-22-2022 Interpretation and review of laboratory results Normal [facility] No Panel Informationon 12-[address] [facility] Urinalysis complete panel (U )on 12-22-2022 Bacteria LM.HPF (Urine sed) [#/Area] Moderate Abnormal Negative /HPF [facility] Bilirubin Ql (U) Negative Negative mg/dL [facility] Clarity (U) Clear Clear [facility] Color (U) Yellow Lt. Yellow [facility] Epithelial cells.squamous LM.HPF (Urine sed) [#/Area] 0-[address] [facility] Glucose Ql (U) Normal Normal (<70) mg/dL [facility] Hemoglobin Ql (U) 0.03 mg/dL Abnormal Negative [facility] Hyaline casts Auto (Urine sed) [#/Area] 3-5 Abnormal Negative /LPF [facility] Interpretation and review of laboratory results Abnormal [facility] Ketones (U) [Mass/Vol] Negative Negat zenia mg/dL [facility] Leukocyte esterase Test strip Ql (U) Negative Negative Emma/uL [facility] Mucus LM.HPF (Urine sed) [#/Area] Few Negative /LPF [facility] Nitrite Ql (U) Negative Negative [facility] pH (U) 5.0 [pH] 5.0 - 8.[address] [facility] Protein (U) [Mass/Vol] 30 mg/dL Abnormal Negative [facility] RBC LM.HPF (Urine sed) [#/Area] Negative [facility] Specific gravity (U) [Rel density] 1.017 1.005 - 1.[address] [facility] Urobilinogen (U) [Mass/Vol] Normal Normal (0-1) mg/dL [facility] Volume, Urine [address] [facility] WBC LM.HPF (Urine sed) [#/Area] 0-2 [facility] No Panel Informationon 07-08 [facility] Blood Occult Stool Screen #1 on 06-06-2022 Hemoglobin.gastrointes tinal Ql (Stl) Negative Negative NA [facility] Test Performed by [facility], [address] NE, [place], [place] [address] [facility] Comp Metabolic Panelon 06-06 ALP [Catalytic activity/Vol] 65 U/L Normal 38-126 [facility] Comment on above: Performed By: #### N A3 #### [facility] [address] [place] [address] ALT [Catalytic activity/Vol] 183 U/L High 0-49 [facility] Comment on above: Result Comment: The ALT test is performed by an updated assay method. Please note that the reference intervals have been changed and are now sex specific. Performed By: #### N A3 #### [facility] [address] [place] [address] AST [Catalytic activity/Vol] 175 U/L High 15-46 [facility] Comment on above: Performed By: #### N A3 #### [facility] [address] [place] [address] Calcium [Mass/Vol] 9.0 mg/dL Normal 8.4-10.4 [facility] Comment on above: Performed By: #### N A3 #### [facility] [address] [place] [address] Glucose [Mass/Vol] 94 mg/dL Normal 70-100 [facility] Comment on above: Performed By: #### N A3 #### [place] [address] [place] [address] Protein [Mass/Vol] 6.1 g/dL Low 6.3-8.2 [facility] Comment on above: Performed By: #### N A3 #### [facility] [address] [place] [address] Urea nitrogen [Mass/Vol] 7 mg/dL Normal 7-17 [facility] Comment on above: Performed By: #### N A3 #### [facility] [address] [place] [address] Anion gap [Moles/Vol] 4 mmol/L Normal 3-13 [facility] Comment on above: Performed By: #### N A3 #### [facility] [address] [place] [address] Bilirubin [Mass/Vol] 0.7 mg/dL Normal 0.2-1.3 [facility] Comment on above: Performed By: #### N A3 #### [facility] [address] [place] [address] CO2 [Moles/Vol] 23 mmol/L Normal 22-30 [facility] Comment on above: Performed By: #### N A3 #### [facility] [address] [place] [address] Creatinine [Mass/Vol] 1.23 mg/dL Normal 0.52-1.25 [facility] Comment on above: Performed By: #### N A3 #### [facility] [address] [place] [address] GFR/1.73 sq M.predicted among blacks MDRD (S/P/Bld) [Vol rate/Area] 72.3 mL/min/{1.73_m2} Normal >60 [facility] Comment on above: Performed By: #### N A3 #### [facility] [address] [place] [address] GFR/1.73 sq M.predicted among non-blacks MDRD (S/P/Bld) [Vol rate/Area] 62.4 mL/min/{1.73_m2} Normal >60 [facility] Comment on above: Result Comment: KDIG O [...] secretion. Performed By: #### N A3 #### [facility] [address] [place] [address] Albumin [Mass/Vol] 3.7 g/dL Normal 3.5-5.0 [facility] Comment on above: Performed By: #### N A3 #### [facility] [address] [place] [address] Chloride [Moles/Vol] 100 mmol/L Normal 98-107 [facility] Comment on above: Performed By: #### N A3 #### [facility] [address] [place] [address] Potassium [Moles/Vol] 4.6 mmol/L Normal 3.5-5.1 [facility] Comment on above: Performed By: #### N A3 #### [facility] [address] [place] [address] Sodium [Moles/Vol] 127 mmol/L Low 135-145 [facility] Comment on above: Performed By: #### N A3 #### [facility] [address] [place] [address] Comprehensive Metabolic Pane peter 06-06-2022 Albumin [Mass/Vol] 3.7 g/dL 3.5 - 5 g/dL [facility] ALP (Bld) [Catalytic activity/Vol] 65 U/L 38 - 126 U/L [facility] ALT [Catalytic activity/Vol] 183 U/L High 0 - 49 U/L [facility] Comment on above: The ALT test is [...] - 1.25 mg/dL [facility] EGFR IF NonAfrican Jamaican 62.4 mL/min 60 - PINF mL/min [facility] Comment on above: KDIGO guidelines pro vide [...] [Mass/Vol] 7 mg/dL 7 - 17 mg/dL [facility] Test Performed by [facility], [address] [place], [place] [address] [facility] Fecal Occult,Stool Single Sp econ 06-06-2022 Fecal Occult,Stool Single Spec Negative Normal Negative [facility] Comment on above: Performed By: #### N A3 #### [facility] [address] [place] [address] Glucose,Bedsideon 06-06-2022 Glucose [Mass/Vol] 153 mg/dL High 70-100 [facility] Comment on above: Result Comment: Test performed by glucose meter. Results may be 10%-15% lower than serum/plasma values. (CLIA ID [id number]) Performed By: #### N A3 #### [facility] [address] [place] [address] Glucose [Mass/Vol] 133 mg/dL High 70-100 [facility] Comment on above: Result Comment: Test performed by glucose meter. Results may be 10%-15% lower than serum/plasma values. (CLIA ID [id number]) Performed By: #### B GLU #### [facility] [address] [place] [address] [place] GASTRIC EMPTYINGon 2021 Patient Name: WOODY NI Nuclear Medicine ACCESSION EXAM DATE/TIME PROCEDURE ORDERING PROVIDER [id number] 06/06/2022 12:02 EDT NM Gastric Emptying [id number] -OLEGHE, IFIJEN Study CPT code 95839 Reason For Exam (NM Gastric Emptying Study) [...] R Transcribed Date and Time: [facility]/06[facility]22 [facility] Ana Lyn MD - 06/06/2022 Patient Name: WOODY NI Nuclear Medicine ACCESSION EXAM DATE/TIME PROCEDURE ORDERING PROVIDER [id number] 06/06/2022 12:02 EDT NM Gastric Emptying [id number] -OLEGHE, IFIJEN Study CPT code 73842 Reason For Exam (NM Gastric Emptying Study) [...] Medicine ACCESSION EXAM DATE/TIME PROCEDURE ORDERING PROVIDER [id number] 06/06/2022 12:02 EDT NM Gastric Emptying [id number] -JUAN IFICHAPO Study CPT code 94277 Reason For Exam (NM Gastric Emptying Study) [...] Alcantar Date and Time: 06/06/2022 12:14 Normal [facility] POCT Glucoseon 06-06-2022 Glucose [Mass/Vol] 153 mg/dL High 70 - 100 mg/dL [facility] Work Phone: Comment on above: Test performed by gl ucose meter. Results may be 10%-15% lower than serum/plasma values. (CLIA ID [id number]) Interpretation and review of laboratory results Abnormal [facility] Work Phone: Test Performed by [facility], [address] LAB [facility] Work Phone: Test Performed by [facility], [address] LAB POCT GlucoseOrdered By: Kaia Schaefer on 06-06-2022 Glucose [Mass/Vol] 133 mg/dL High 70 - 100 mg/dL [facility] Work Phone: Comment on above: Test performed by gl ucose meter. Results may be 10%-15% lower than serum/plasma values. (CLIA ID [id number]) Interpretation and review of laboratory results Abnormal [facility] Work Phone: [facility] Work Phone: Sodiumon 06-06-2022 Sodium [Moles/Vol] 129 mmol/L Low 135-145 [facility] Comment on above: Performed By: #### N A3 #### [facility] [address] [place] [address] CBCon 06-05-2022 Hematocrit (Bld) [Volume fraction] 31.7 % Low 40 - 52 % [facility] Hemoglobin (Bld) [Mass/Vol] 10.9 g/dL Low 13 - 18 g/dL [facility] Interpretation and review of laboratory results Abnormal [facility] MCH (RBC) [Entitic mass] 34.0 pg 26 - 34 pg [facility] MCHC (RBC) [Mass/Vol] 34.5 % 32 - 36 % [facility] MCV (RBC) [Entitic vol] 98.7 fL High 80 - 98 fL [facility] Platelet distribution width (Bld) [Ratio] 13.4 % 11.5 - 14.5 % [facility] Platelet mean volume (Bld) [Entitic vol] 8.6 fL 7.4 - 12.4 fL [facility] Comment on above: MPV is a calculated measurement using platelet volume ratio. Platelets (Bld) [#/Vol] 104 10*3/uL Low 140 - 440 10*3/uL [facility] RBC (Bld) [#/Vol] 3.21 10*6/uL Low 4.4 - 5.9 10*6/uL [facility] WBC (Bld) [#/Vol] 3.4 10*3/uL Low 3.6 - 10.7 10*3/uL [facility] Test Performed by [facility], [address] [place] [address] [facility] Comp Metabolic Panelon 06-05 ALP [Catalytic activity/Vol] 58 U/L Normal 38-126 [facility] Comment on above: Performed By: #### B GLU #### [facility] [address] [place] [address] ALT [Catalytic activity/Vol] 191 U/L High 0-49 [facility] Comment on above: Result Comment: The ALT test is performed by an updated assay method. Please note that the reference intervals have been changed and are now sex specific. Performed By: #### B GLU #### [facility] [address] [place] [address] Anion gap [Moles/Vol] 7 mmol/L Normal 3-13 [facility] Comment on above: Performed By: #### B GLU #### [facility] [address] [place] [address] AST [Catalytic activity/Vol] 178 U/L High 15-46 [facility] Comment on above: Performed By: #### B GLU #### [facility] [address] [place] [address] Calcium [Mass/Vol] 8.9 mg/dL Normal 8.4-10.4 [facility] Comment on above: Performed By: #### B GLU #### [facility] [address] [place] [address] CO2 [Moles/Vol] 24 mmol/L Normal 22-30 [facility] Comment on above: Performed By: #### B GLU #### [facility] [address] [place] [address] Glucose [Mass/Vol] 93 mg/dL Normal 70-100 [facility] Comment on above: Performed By: #### B GLU #### [facility] [address] [place] [address] Protein [Mass/Vol] 6.2 g/dL Low 6.3-8.2 [facility] Comment on above: Performed By: #### B GLU #### [facility] [address] [place] [address] Urea nitrogen [Mass/Vol] 8 mg/dL Normal 7-17 [facility] Comment on above: Performed By: #### B GLU #### [facility] [address] [place] [address] Bilirubin [Mass/Vol] 0.6 mg/dL Normal 0.2-1.3 [facility] Comment on above: Performed By: #### B GLU #### [facility] [address] [place] [address] Creatinine [Mass/Vol] 1.19 mg/dL Normal 0.52-1.25 [facility] Comment on above: Performed By: #### B GLU #### [facility] [address] [place] [address] GFR/1.73 sq M.predicted among blacks MDRD (S/P/Bld) [Vol rate/Area] 75.2 mL/min/{1.73_m2} Normal >60 [facility] Comment on above: Performed By: #### B GLU #### [facility] [address] [place] [address] GFR/1.73 sq M.predicted among non-blacks MDRD (S/P/Bld) [Vol rate/Area] 64.9 mL/min/{1.73_m2} Normal >60 [facility] Comment on above: Result Comment: KDIG O [...] secretion. Performed By: #### B GLU #### [facility] [address] [place] [address] Albumin [Mass/Vol] 3.7 g/dL Normal 3.5-5.0 [facility] Comment on above: Performed By: #### B GLU #### [facility] [address] [place] [address] Chloride [Moles/Vol] 97 mmol/L Low 98-107 [facility] Comment on above: Performed By: #### B GLU #### [facility] [address] [place] [address] Potassium [Moles/Vol] 4.5 mmol/L Normal 3.5-5.1 [facility] Comment on above: Performed By: #### B GLU #### [facility] [address] [place] [address] Sodium [Moles/Vol] 128 mmol/L Low 135-145 [facility] Comment on above: Performed By: #### B GLU #### [facility] [address] [place] [address] Comprehensive Metabolic Pane peter 06-05-2022 Albumin [Mass/Vol] 3.7 g/dL 3.5 - 5 g/dL [facility] ALP (Bld) [Catalytic activity/Vol] 58 U/L 38 - 126 U/L [facility] ALT [Catalytic activity/Vol] 191 U/L High 0 - 49 U/L [facility] Comment on above: The ALT test is [...] - 1.25 mg/dL [facility] EGFR IF NonAfrican Jamaican 64.9 mL/min 60 - PINF mL/min [facility] [...] [Mass/Vol] 8 mg/dL 7 - 17 mg/dL [facility] Test Performed by [facility], [address] [place] [address] [facility] Glucose,Bedsideon 06-05-2022 Glucose [Mass/Vol] 107 mg/dL High 70-100 [facility] Comment on above: Result Comment: Test performed by glucose meter. Results may be 10%-15% lower than serum/plasma values. (CLIA ID [id number]) Performed By: #### B GLU #### [facility] [address] [place] [address] Glucose [Mass/Vol] 94 mg/dL Normal 70-100 [facility] Comment on above: Result Comment: Test performed by glucose meter. Results may be 10%-15% lower than serum/plasma values. (CLIA ID [id number]) Performed By: #### B GLU #### [facility] [address] [place] [address] Glucose [Mass/Vol] 96 mg/dL Normal 70-100 [facility] Comment on above: Result Comment: Test performed by glucose meter. Results may be 10%-15% lower than serum/plasma values. (CLIA ID [id number]) Performed By: #### B GLU #### [facility] [address] [place] [address] Glucose [Mass/Vol] 105 mg/dL High 70-100 [facility] Comment on above: Result Comment: Test performed by glucose meter. Results may be 10%-15% lower than serum/plasma values. (CLIA ID [id number]) Performed By: #### B GLU #### [facility] [address] [place] [address] HM ENDOSCOPY REPORTon 2021 Ordered by an unspec ified provider. [facility] Hemogramon 06-05-2022 Erythrocyte distribution width (RBC) [Ratio] 13.4 % Normal 11.5-14.5 [facility] Comment on above: Performed By: #### B GLU #### [facility] [address] [place] [address] Hematocrit (Bld) [Volume fraction] 31.7 % Low 40.0-52.0 [facility] Comment on above: Performed By: #### B GLU #### [facility] [address] [place] [address] Hemoglobin (Bld) [Mass/Vol] 10.9 g/dL Low 13.0-18.0 [facility] Comment on above: Performed By: #### B GLU #### [facility] [address] [place] [address] MCH (RBC) [Entitic mass] 34.0 pg Normal 26.0-34.0 [facility] Comment on above: Performed By: #### B GLU #### [facility] [address] [place] [address] MCHC 34.5 % Normal 32.0-36.0 [facility] Comment on above: Performed By: #### B GLU #### [facility] [address] [place] [address] MCV (RBC) [Entitic vol] 98.7 fL High 80.0-98.0 [facility] Comment on above: Performed By: #### B GLU #### [facility] [address] [place] [address] Platelet mean volume (Bld) [Entitic vol] 8.6 fL Normal 7.4-12.4 [facility] Comment on above: Result Comment: MPV is a calculated measurement using platelet volume ratio. Performed By: #### B GLU #### [facility] [address] [place] [address] Platelets (Bld) [#/Vol] 104 10*3/uL Low 140-440 [facility] Comment on above: Performed By: #### B GLU #### [facility] [address] [place] [address] RBC (Bld) [#/Vol] 3.21 10*6/uL Low 4.40-5.90 [facility] Comment on above: Performed By: #### B GLU #### [facility] [address] [place] [address] WBC (Bld) [#/Vol] 3.4 10*3/uL Low 3.6-10.7 [facility] Comment on above: Performed By: #### B GLU #### [facility] [address] [place] [address] POCT GlucoseOrdered By: Елена Yoo on 06-05-2022 Glucose [Mass/Vol] 107 mg/dL High 70 - 100 mg/dL [facility] Work Phone: Comment on above: Test performed by gl ucose meter. Results may be 10%-15% lower than serum/plasma values. (CLIA ID [id number]) Interpretation and review of laboratory results Abnormal [facility] Work Phone: [facility] Work Phone: POCT Glucoseon 06-05-2022 Test Performed by [facility], [address] LAB Glucose [Mass/Vol] 94 mg/dL 70 - 100 mg/dL [facility] Work Phone: Comment on above: Test performed by gl ucose meter. Results may be 10%-15% lower than serum/plasma values. (CLIA ID [id number]) Test Performed by [facility], [address] LAB [facility] Work Phone: Test Performed by [facility], [address] LAB Test Performed by [facility], [address] LAB POCT GlucoseOrdered By: Jennifer Cordova on 06-05-2022 Glucose [Mass/Vol] 96 mg/dL 70 - 100 mg/dL [facility] Comment on above: Test performed by gl ucose meter. Results may be 10%-15% lower than serum/plasma values. (CLIA ID [id number]) [facility] POCT GlucoseOrdered By: Janett Monaco on 06-05-2022 Glucose [Mass/Vol] 105 mg/dL High 70 - 100 mg/dL [facility] Comment on above: Test performed by gl ucose meter. Results may be 10%-15% lower than serum/plasma values. (CLIA ID [id number]) Interpretation and review of laboratory results Abnormal [facility] Retic Count(%)on 06-05-2022 Retic Count(%) 1.5 Normal [facility] Comment on above: Result Comment: Newb orn < 5% Adults 0.5 - 1.5% Performed By: #### B GLU #### [facility] [address] [place] [address] Reticulocyteson 06-05-[address] Pct 1.5 [facility] Comment on above: < 5% Adults 0.5 - 1.5% Test Performed by [facility], [facility] [address] LAB [facility] Sodiumon 06-05-2022 Interpretation and review of laboratory results Abnormal [facility] Sodium [Moles/Vol] 129 mmol/L Low 135 - 145 mmol/L [facility] Test Performed by [facility], [facility] [address] LAB [facility] Sodium [Moles/Vol] 127 mmol/L Low 135-145 [facility] Comment on above: Performed By: #### N A3 #### [facility] [address] [place] [address] Interpretation and review of laboratory results Abnormal [facility] Sodium [Moles/Vol] 127 mmol/L Low 135 - 145 mmol/L [facility] Test Performed by [facility], [facility] [address] LAB [facility] Sodium [Moles/Vol] 126 mmol/L Low 135-145 [facility] Comment on above: Performed By: #### N A3 #### [facility] [address] [place] [address] Interpretation and review of laboratory results Abnormal [facility] Sodium [Moles/Vol] 126 mmol/L Low 135 - 145 mmol/L [facility] Test Performed by [facility], [address] LAB [facility] Sodium [Moles/Vol] 127 mmol/L Low 135-145 [facility] Comment on above: Performed By: #### B GLU #### [facility] [address] [place] [address] Sodium, Ur Randomon 06-05-20 22 Sodium [Moles/Vol] 63 mmol/L Normal 30-90 [facility] Comment on above: Performed By: #### N A3 #### [facility] [address] [place] [address] Sodium, Urine, Randomon 05-19 Sodium (U) [Moles/Vol] 63 mmol/L 30 - 90 mmol/L [facility] Test Performed by [facility], [address] [place] [address] [facility] Surgical Pathologyon 022 Surgical Pathology [id number] [facility] PATHOLOGY AND LABORATORY MEDICINE [address] [place] [address] Fax - FINAL SURGICAL PATHOLOGY REPORT NAME: WOODY NI : 1960 62 Y M [facility] NO.: [id number] LOCATION: [place] [address] PROCEDURE 06/05/2022 DATE: SURGEON: ANA CALLAWAY M.D. [...] characteristics determined by the clinical laboratories of [facility]. They have not been cleared by the [...] negativity on decalcified specimens. Case reviewed at [place] [address] [place] [address]. DEPARTMENT OF PATHOLOGY AND LABORATORY MEDICINE [place], [place] [address] [email or web address] Normal [facility] Add On Lab Teston 06-04-2022 Add On Rejected [facility] Test Performed by [facility], [address], [place], [place] [address] [facility] Add on test from HISon 06-04 Add on test from HIS Rejected Normal [facility] Comment on above: Performed By: #### B GLU #### [facility] [address] [place] [address] C. difficile toxin Molecular on 06-04-2022 C. difficile toxin Molecular NEGATIVE Methodology - Real Time PCR (imageloop) Clinical judgement must be used when interpreting results. Positive results may reflect colonization. Indeterminate results suggest a new specimen be submitted. _ [facility] 1 [facility] CBCon 06-04-2022 Hematocrit (Bld) [Volume fraction] 23.4 % Low 40 - 52 % [facility] Hemoglobin (Bld) [Mass/Vol] 8.0 g/dL Low 13 - 18 g/dL [facility] Interpretation and review of laboratory results Abnormal [...] - 10.7 10*3/uL [facility] Test Performed by [facility], [address], [place], [place] [address] [facility] CBC with Auto Differentialon 06-04-2022 Hematocrit (Bld) [...] 3.5 10*3/uL Low 3.6 - 10.7 10*3/uL [facility] Test Performed by [facility], [address], [place], [place] [address] [facility] Clostridium difficile PCRon 06-04-2022 Clostridium difficile PCR [...] a new specimen be submitted. _ Normal [facility] Comment on above: Performed By: #### C DPCR #### , [id number] The performing lab is in the report. Comp Metabolic Panelon 06-04 ALP [Catalytic activity/Vol] 38 U/L Normal 38-126 [facility] Comment on above: Performed By: #### B GLU #### [facility] [address] [place] [address] ALT [Catalytic activity/Vol] 172 U/L High 0-49 [facility] Comment on above: Result Comment: The ALT test is performed by an updated assay method. Please note that the reference intervals have been changed and are now sex specific. Performed By: #### B GLU #### [facility] [address] [place] [address] Anion gap [Moles/Vol] 6 mmol/L Normal 3-13 [facility] Comment on above: Performed By: #### B GLU #### [facility] [address] [place] [address] AST [Catalytic activity/Vol] 177 U/L High 15-46 [facility] Comment on above: Performed By: #### B GLU #### [facility] [address] [place] [address] Bilirubin [Mass/Vol] 0.3 mg/dL Normal 0.2-1.3 [facility] Comment on above: Performed By: #### B GLU #### [facility] [address] [place] [address] Calcium [Mass/Vol] 6.3 mg/dL Low 8.4-10.4 [facility] Comment on above: Performed By: #### B GLU #### [facility] [address] [place] [address] CO2 [Moles/Vol] 16 mmol/L Low 22-30 [facility] [facility] Comment on above: Performed By: #### B GLU #### [facility] [address] [place] [address] Glucose [Mass/Vol] 76 mg/dL Normal 70-100 [facility] Comment on above: Performed By: #### B GLU #### [facility] [address] [place] [address] Protein [Mass/Vol] 4.7 g/dL Low 6.3-8.2 [facility] Comment on above: Performed By: #### B GLU #### [facility] [address] [place] [address] Urea nitrogen [Mass/Vol] 4 mg/dL Low 7-17 [facility] Comment on above: Performed By: #### B GLU #### [facility] [address] [place] [address] Creatinine [Mass/Vol] 1.04 mg/dL Normal 0.52-1.25 [facility] Comment on above: Performed By: #### B GLU #### [facility] [address] [place] [address] GFR/1.73 sq M.predicted among blacks MDRD (S/P/Bld) [Vol rate/Area] 88.6 mL/min/{1.73_m2} Normal >60 [facility] Comment on above: Performed By: #### B GLU #### [facility] [address] [place] [address] GFR/1.73 sq M.predicted among non-blacks MDRD (S/P/Bld) [Vol rate/Area] 76.4 mL/min/{1.73_m2} Normal >60 [facility] Comment on above: Result Comment: KDIG O [...] secretion. Performed By: #### B GLU #### [facility] [address] [place] [address] Albumin [Mass/Vol] 2.7 g/dL Low 3.5-5.0 [facility] Comment on above: Performed By: #### B GLU #### [facility] [address] [place] [address] Chloride [Moles/Vol] 108 mmol/L High 98-107 [facility] Comment on above: Performed By: #### B GLU #### [facility] [address] [place] [address] Potassium [Moles/Vol] 3.4 mmol/L Low 3.5-5.1 [facility] Comment on above: Performed By: #### B GLU #### [facility] [address] [place] [address] Sodium [Moles/Vol] 130 mmol/L Low 135-145 [facility] Comment on above: Performed By: #### B GLU #### [facility] [address] [place] [address] Comprehensive Metabolic Pane peter 06-04-2022 Albumin [Mass/Vol] [...] - 1.25 mg/dL [facility] EGFR IF NonAfrican Jamaican 76.4 mL/min 60 - PINF mL/min [facility] [...] [Mass/Vol] 76 mg/dL 70 - 100 mg/dL [facility] Interpretation and review of laboratory results Abnormal [facility] Potassium [Moles/Vol] 3.4 mmol/L Low 3.5 - 5.1 mmol/L [facility] Sodium [Moles/Vol] 130 mmol/L Low 135 - 145 mmol/L [facility] Urea nitrogen (BldV) [Mass/Vol] 4 mg/dL Low 7 - 17 mg/dL [facility] Test Performed by [address] LAB [facility] EKG 12 Lead - Chest Painon 0 06-04-2022 [facility] Test Date: 2022-06-03 Pat Name: WOODY NI Department: EMERGENCY Room: 243 Gender: M Carpenter Rough: [id number] : 1960 Requested By: DANIEL EWING Order Number: [id number] Reading MD: Khurram Bob Measurements Intervals [place] Rate: 75 P: 0 LA: 159 QRS: -32 QRSD: 141 T: 11 QT: 412 QTc: 459 Interpretive Statements Sinus rhythm Right bundle branch block No previous ECG available for comparison Electronically Signed On 06-04-2022 7:11:00 EDT by Khurram Bob [facility] Khurram Bob MD - 06/04/2022 [facility] Test Date: 2022-06-03 Pat Name: WOODY NI Department: EMERGENCY Room: 243 Gender: M Carpenter Rough: [id number] : 1960 Requested By: DANIEL EWING Order Number: [id number] Reading MD: Khurram Bob Measurements Intervals [place] Rate: 75 P: 0 LA: 159 QRS: -32 QRSD: 141 T: 11 QT: 412 QTc: 459 Interpretive Statements Sinus rhythm Right bundle branch block No previous ECG available for comparison Electronically Signed On 06-04-2022 7:11:00 EDT by Khurram Bob [facility] Work Phone: EKG 12 Lead - Chest PainOrde red By: Khurram Bob on 06-04-2022 [facility] Work Phone: Ferritinon 06-04-2022 Ferritin [Mass/Vol] 981 ng/mL High 18-464 [facility] Comment on above: Performed By: #### N A3 #### [facility] [address] [place] [address] Ferritin [Mass/Vol] 981 ng/mL High 18 - 464 ng/mL [facility] Interpretation and review of laboratory results Abnormal [facility] Test Performed by [facility], [address] [place], [place] [address] [facility] GASTROINTESTINAL PCR PANELon 06-04-2022 GASTROINTESTINAL PCR PANEL GASTROINTESTINAL PCR PANEL --> Status: F NEGATIVE: No targets were detected by the EveryMove Gastrointestinal PCR Panel. _ The BioFire Gastrointestinal PCR Panel can detect the following targets: Campylobacter, Plesiomonas shigelloides, Salmonella, Vibrio species, Vibrio cholerae, Yersinia enterocolitica, Shiga toxin-producing E coli (STEC) including E coli O157, Enterotoxigenic E coli (ETEC), Shigella/Enteroinvasive E coli (EIEC), Cryptosporidium, Cyclospora cayetanensis, Entamoeba histolytica, Giardia lamblia, Adenovirus F 40/41, Astrovirus, Norovirus GI/GII, Rotavirus A, Sapovirus Gastrointestinal PCR Panel. _ The Nanofiber Solutionse Gastrointestinal PCR Panel can detect the following targets: Campylobacter, Plesiomonas shigelloides, Salmonella, Vibrio species, Vibrio cholerae, Yersinia enterocolitica, Shiga toxin-producing E coli (STEC) including E coli O157, Enterotoxigenic E coli (ETEC), Shigella/Enteroinvasive E coli (EIEC), Cryptosporidium, Cyclospora cayetanensis, Entamoeba histolytica, Giardia lamblia, Adenovirus F 40/41, Astrovirus, Norovirus GI/GII, Rotavirus A, Sapovirus Normal [facility] Comment on above: Performed By: #### B FGI #### [address] [address] Gastrointestinal Panel by GARRY Morales 06-04-2022 Gastrointestinal PCR Panel NEGATIVE: No targets were detected by the EveryMove Gastrointestinal PCR Panel. _ The NangateFire Gastrointestinal PCR Panel can detect the following targets: Campylobacter, Plesiomonas shigelloides, Salmonella, Vibrio species, Vibrio cholerae, Yersinia enterocolitica, Shiga toxin-producing E coli (STEC) including E coli O157, Enterotoxigenic E coli (ETEC), Shigella/Enteroinvasive E coli (EIEC), Cryptosporidium, Cyclospora cayetanensis, Entamoeba histolytica, Giardia lamblia, Adenovirus F 40/41, Astrovirus, Norovirus GI/GII, Rotavirus A, Sapovirus [facility] Test Performed by [facility], [address] [place] [id number] [place] [address] LAB Glucose,Bedsideon 06-04-2022 Glucose [Mass/Vol] 89 mg/dL Normal 70-[address] [place] [address] Comment on above: Result Comment: Test performed by glucose meter. Results may be 10%-15% lower than serum/plasma values. (CLIA ID [id number]) Performed By: #### N A3 #### [facility] [address] [place] [address] Glucose [Mass/Vol] 104 mg/dL High 70-100 [facility] Comment on above: Result Comment: Test performed by glucose meter. Results may be 10%-15% lower than serum/plasma values. (CLIA ID [id number]) Performed By: #### N A3 #### [facility] [address] [place] [address] Glucose [Mass/Vol] 122 mg/dL High 70-100 [facility] Comment on above: Result Comment: Test performed by glucose meter. Results may be 10%-15% lower than serum/plasma values. (CLIA ID [id number]) Performed By: #### N A3 #### [facility] [address] [place] [address] Glucose [Mass/Vol] 100 mg/dL Normal 70-100 [facility] Comment on above: Result Comment: Test performed by glucose meter. Results may be 10%-15% lower than serum/plasma values. (CLIA ID [id number]) Performed By: #### B GLU #### [facility] [address] [place] [address] Hemoglobin A1Con 06-04-2022 Glucose [Mass/Vol] 94 mg/dL Normal [facility] Comment on above: Performed By: #### H A1C2 #### [facility] [address] [place] [address] HbA1c (Bld) [Mass fraction] 4.9 % Normal [facility] Comment on above: Result Comment: Norm al less than 5.7% Prediabetes 5.7% to 6.4% Diabetes 6.5% or higher --HgbA1C levels may not be accurate in patients who have renal disease, received recent blood transfusions, are anemic, or who have dyshemoglobinemia. Performed By: #### H A1C2 #### [facility] [address] [place] [address] Hemoglobin A1con 06-04-2022 HbA1c (Bld) [Mass fraction] 4.9 % [facility] Comment on above: Normal less than 5.7 % Prediabetes 5.7% to 6.4% Diabetes 6.5% or higher --HgbA1C levels may not be accurate in patients who have renal disease, received recent blood transfusions, are anemic, or who have dyshemoglobinemia. Magnesium [Mass/Vol] 94 mg/dL [facility] Test Performed by [facility], [address] [place], [place] [address] [facility] Hemogramon 06-04-2022 Erythrocyte distribution width (RBC) [Ratio] 13.2 % Normal 11.5-14.5 [facility] Comment on above: Performed By: #### B GLU #### [facility] [address] [place] [address] Hematocrit (Bld) [Volume fraction] 23.4 % Low 40.0-52.0 [facility] Comment on above: Performed By: #### B GLU #### [facility] [address] [place] [address] Hemoglobin (Bld) [Mass/Vol] 8.0 g/dL Low 13.0-18.0 [facility] Comment on above: Performed By: #### B GLU #### [facility] [address] [place] [address] MCH (RBC) [Entitic mass] 34.5 pg High 26.0-34.0 [facility] Comment on above: Performed By: #### B GLU #### [facility] [address] [place] [address] MCHC 34.3 % Normal 32.0-36.0 [facility] Comment on above: Performed By: #### B GLU #### [facility] [address] [place] [address] MCV (RBC) [Entitic vol] 100.5 fL High 80.0-98.0 [facility] Comment on above: Performed By: #### B GLU #### [facility] [address] [place] [address] Platelet mean volume (Bld) [Entitic vol] 9.2 fL Normal 7.4-12.4 [facility] Comment on above: Result Comment: MPV is a calculated measurement using platelet volume ratio. Performed By: #### B GLU #### [facility] [address] [place] [address] Platelets (Bld) [#/Vol] 72 10*3/uL Low 140-440 [facility] Comment on above: Performed By: #### B GLU #### [facility] [address] [place] [address] RBC (Bld) [#/Vol] 2.33 10*6/uL Low 4.40-5.90 [facility] Comment on above: Performed By: #### B GLU #### [facility] [address] [place] [address] WBC (Bld) [#/Vol] 2.4 10*3/uL Low 3.6-10.7 [facility] Comment on above: Performed By: #### B GLU #### [facility] [address] [place] [address] Hemogram w/ Autodiffon 06-04 Erythrocyte distribution width (RBC) [Ratio] 13.3 % Normal 11.5-14.5 [facility] Comment on above: Performed By: #### N A3 #### [facility] [address] [place] [address] Hematocrit (Bld) [Volume fraction] 30.5 % Low 40.0-52.0 [facility] Comment on above: Performed By: #### N A3 #### [facility] [address] [place] [address] Hemoglobin (Bld) [Mass/Vol] 10.5 g/dL Low 13.0-18.0 [facility] Comment on above: Performed By: #### N A3 #### [facility] [address] [place] [address] MCH (RBC) [Entitic mass] 34.3 pg High 26.0-34.0 [facility] Comment on above: Performed By: #### N A3 #### [facility] [address] [place] [address] MCHC 34.5 % Normal 32.0-36.0 [facility] Comment on above: Performed By: #### N A3 #### [facility] [address] [place] [address] MCV (RBC) [Entitic vol] 99.5 fL High 80.0-98.0 [facility] Comment on above: Performed By: #### N A3 #### [facility] [address] [place] [address] Platelet mean volume (Bld) [Entitic vol] 9.0 fL Normal 7.4-12.4 [facility] Comment on above: Result Comment: MPV is a calculated measurement using platelet volume ratio. Performed By: #### N A3 #### [facility] [address] [place] [address] Platelets (Bld) [#/Vol] 98 10*3/uL Low 140-440 [facility] Comment on above: Performed By: #### N A3 #### [facility] [address] [place] [address] RBC (Bld) [#/Vol] 3.07 10*6/uL Low 4.40-5.90 [facility] Comment on above: Performed By: #### N A3 #### [facility] [address] [place] [address] WBC (Bld) [#/Vol] 3.5 10*3/uL Low 3.6-10.7 [facility] Comment on above: Performed By: #### N A3 #### [facility] [address] [place] [address] Hepatic Functionon 2 ALP [Catalytic activity/Vol] 52 U/L Normal 38-126 [facility] Comment on above: Performed By: #### N A3 #### [facility] [address] [place] [address] ALT [Catalytic activity/Vol] 182 U/L High 0-49 [facility] Comment on above: Result Comment: The ALT test is performed by an updated assay method. Please note that the reference intervals have been changed and are now sex specific. Performed By: #### N A3 #### [facility] [address] [place] [address] AST [Catalytic activity/Vol] 192 U/L High 15-46 [facility] Comment on above: Performed By: #### N A3 #### [facility] [address] [place] [address] Bilirubin [Mass/Vol] 0.4 mg/dL Normal 0.2-1.3 [facility] Comment on above: Performed By: #### N A3 #### [facility] [address] [place] [address] Bilirubin.indirect [Mass/Vol] 0.0 mg/dL Normal 0.0-0.3 [facility] Comment on above: Performed By: #### N A3 #### [facility] [address] [place] [address] Protein [Mass/Vol] 5.8 g/dL Low 6.3-8.2 [facility] Comment on above: Performed By: #### N A3 #### [facility] [address] [place] [address] Albumin [Mass/Vol] 3.6 g/dL Normal 3.5-5.0 [facility] Comment on above: Performed By: #### N A3 #### [facility] [address] [place] [address] Hepatic Function Panelon Albumin [Mass/Vol] 3.6 g/dL [...] 5.8 g/dL Low 6.3 - 8.2 g/dL [facility] Interpretation and review of laboratory results Abnormal [facility] Iron AND TIBCon 06-04-2022 Saturation 55 % High 15-50 [facility] Comment on above: Performed By: #### N A3 #### [facility] [address] [place] [address] Total Iron Binding Cap. 216 ug/dL Low 261-497 [facility] Comment on above: Performed By: #### N A3 #### [facility] [address] [place] [address] Iron, Total 119 ug/dL Normal 49-181 [facility] Comment on above: Performed By: #### N A3 #### [facility] [address] [place] [address] Iron and TIBCon 06-04-2022 Interpretation and review of laboratory results Abnormal [facility] Iron [Mass/Vol] 119 ug/dL 49 - 181 ug/dL [facility] Sat 55 % High 15 - 50 % [facility] TIBC 216 ug/dL Low 261 - 497 ug/dL [facility] Test Performed by [facility], [address] [place] [address] [facility] Lipaseon 06-04-2022 Lipase [Catalytic activity/Vol] 99 U/L Normal 23-300 [facility] Comment on above: Performed By: #### N A3 #### [facility] [address] [place] [address] Lipase [Catalytic activity/Vol] 99 U/L 23 - 300 U/L [facility] Manual Diffon 06-04-2022 Abs Eosin Cnt 0.1 10*3/uL Normal 0.0-0.5 [facility] Comment on above: Performed By: #### N A3 #### [facility] [address] [place] [address] Abs Lymph Cnt 0.9 10*3/uL Low 1.1-4.5 [facility] Comment on above: Performed By: #### N A3 #### [place] [address] [place] [address] Abs Monocyte Cnt 0.3 10*3/uL Normal 0.2-1.1 [facility] Comment on above: Performed By: #### N A3 #### [facility] [address] [place] [address] Abs Neutrophile Cnt 2.2 10*3/uL Normal 2.2-8.2 [facility] Comment on above: Performed By: #### N A3 #### [facility] [address] [place] [address] Eosinophils 3 % Normal 1-6 [facility] Comment on above: Performed By: #### N A3 #### [facility] [address] [place] [address] Hypochromia Slight Normal [facility] Comment on above: Performed By: #### N A3 #### [facility] [address] [place] [address] Lymphocytes 26 % Normal 20-40 [facility] Comment on above: Performed By: #### N A3 #### [facility] [address] [place] [address] Monocytes 8 % Normal 2-10 [facility] Comment on above: Performed By: #### N A3 #### [facility] [address] [place] [address] RBC Morphology ABNORMAL Normal [facility] Comment on above: Performed By: #### N A3 #### [facility] [address] [place] [address] Seg Neutrophils 63 % Normal 40-80 [facility] Comment on above: Performed By: #### N A3 #### [facility] [address] [place] [address] Abs Baso Cnt 0.0 10*3/uL Normal 0.0-0.2 [facility] Comment on above: Performed By: #### N A3 #### [facility] [address] [place] [address] Bands 0 % Normal 0-3 [facility] Comment on above: Performed By: #### N A3 #### [facility] [address] [place] [address] Basophils 0 % Normal 0-2 [facility] Comment on above: Performed By: #### N A3 #### [facility] [address] [place] [address] Cells counted 100 Normal [facility] Comment on above: Performed By: #### N A3 #### [facility] [address] [place] [address] Manual Differentialon 2021 Absolute Baso # 0.0 10*3/uL 0 - 0.2 10*3/uL [facility] Absolute Eos # 0.1 10*3/uL 0 - 0.5 10*3/uL [facility] Absolute Lymph # 0.9 10*3/uL Low 1.1 - 4.5 10*3/uL [facility] Absolute Ware # 0.3 10*3/uL 0.2 - 1.1 10*3/uL [...] CELLS COUNTED 100 [facility] Test Performed by [facility], [address] [place], [address] LAB [facility] No Panel Informationon 06-04 [facility] Test Performed by [facility], [facility] [address] [place], [address] [facility] Interpretation and review of laboratory results Abnormal [facility] Test Performed by [facility], [facility] [address] [place], [address] LAB [facility] Osmolalityon 06-04-2022 Serum Osmolality 265 mosm/kg Low 280 - 300 mosm/kg [facility] Osmolality,Serumon 2 Osmolality,Serum 265 mosm/kg Low 280-300 [facility] Comment on above: Performed By: #### B GLU #### [facility] [address] [place] [address] POCT GlucoseOrdered By: Alexander Walsh on 06-04-2022 Glucose [Mass/Vol] 89 mg/dL 70 - 100 mg/dL [facility] Work Phone: Comment on above: Test performed by gl ucose meter. Results may be 10%-15% lower than serum/plasma values. (CLIA ID [id number]) [facility] Work Phone: POCT Glucoseon 06-04-2022 Test Performed by [facility], [address] [place], [address] LAB Glucose [Mass/Vol] 104 mg/dL High 70 - 100 mg/dL [facility] Work Phone: Comment on above: Test performed by gl ucose meter. Results may be 10%-15% lower than serum/plasma values. (CLIA ID [id number]) Interpretation and review of laboratory results Abnormal [facility] Work Phone: Test Performed by [facility], [address] LAB [facility] Work Phone: Test Performed by [facility], [address] [place], [place], [place] [id number] [place] [address] LAB Test Performed by [facility], [address] [place], [place], [place] [id number] [place] [address] LAB POCT GlucoseOrdered By: Carter Scott on 06-04-2022 Glucose [Mass/Vol] 122 mg/dL High 70 - 100 mg/dL [facility] Work Phone: Comment on above: Test performed by gl ucose meter. Results may be 10%-15% lower than serum/plasma values. (CLIA ID [id number]) Interpretation and review of laboratory results Abnormal [facility] Work Phone: [facility] Work Phone: POCT GlucoseOrdered By: Arabella Robert on 06-04-2022 Glucose [Mass/Vol] 100 mg/dL 70 - 100 mg/dL [facility] Work Phone: Comment on above: Test performed by gl ucose meter. Results may be 10%-15% lower than serum/plasma values. (CLIA ID [id number]) [facility] Work Phone: Prothrombin Timeon 2 INR 1.3 High 0.9-1.1 [facility] Comment on above: Result Comment: Fantasma mmended [...] Infarction Performed By: #### B GLU #### [facility] [address] [place] [address] PT Coag (PPP) [Time] 13.8 s High 9.0-12.0 [facility] Comment on above: Result Comment: . Performed By: #### B GLU #### [facility] [address] [place] [address] Protime-INRon 06-04-2022 INR Coag (Bld) [Relative time] [...] - 145 mmol/L [facility] Test Performed by [facility], [address] [place] [address] LAB [facility] Sodium [Moles/Vol] 125 mmol/L Low 135-145 [facility] Comment on above: Performed By: #### B GLU #### [facility] [address] [place] [address] Interpretation and review of laboratory results Abnormal [facility] Sodium [Moles/Vol] 125 mmol/L Low 135 - 145 mmol/L [facility] Test Performed by [facility], [address] [place] [address] LAB [facility] Sodium [Moles/Vol] 127 mmol/L Low 135-145 [facility] Comment on above: Performed By: #### B GLU #### [facility] [address] [place] [address] Interpretation and review of laboratory results Abnormal [facility] Sodium [Moles/Vol] 127 mmol/L Low 135 - 145 mmol/L [facility] Test Performed by [facility], [address] [place] [address] LAB [facility] TSHon 06-04-2022 TSH Qn 2.601 u[IU]/mL 0.465 - 4.68 u[IU]/mL [facility] Test Performed by [facility], [address] [place], [place] [id number] [place] [address] LAB [facility] Thyroid Stim. Hormoneon 05-19 Thyroid Stim. Hormone 2.601 u[IU]/mL Normal 0.465-4.68 0 [facility] Comment on above: Performed By: #### N A3 #### [facility] [address] [place] [address] Vitamin B12on 06-04-2022 Cobalamin (Vitamin B12) [Mass/Vol] 725 pg/mL Normal 239-931 [facility] Comment on above: Performed By: #### N A3 #### [facility] [address] [place] [address] Cobalamin (Vitamin B12) [Mass/Vol] 725 pg/mL 239 - 931 pg/mL [facility] Test Performed by [facility], [address] LAB [facility] CBC with Auto Differentialon [...] 36.2 % High 32 - 36 % [facility] MCV (RBC) [Entitic vol] 95.1 fL [...] [#/Vol] 4.0 10*3/uL 3.6 - 10.7 10*3/uL [facility] Test Performed by [facility], [address] , [place], [place] [id number] [place] [address] LAB [facility] Comp Metabolic Panelon 06-03 Albumin [Mass/Vol] 4.0 g/dL Normal 3.5-5.0 [facility] Comment on above: Performed By: #### B GLU #### [facility] [address] [place] [address] ALP [Catalytic activity/Vol] 49 U/L Normal 38-126 [facility] Comment on above: Performed By: #### B GLU #### [facility] [address] [place] [address] ALT [Catalytic activity/Vol] 227 U/L High 0-49 [facility] Comment on above: Result Comment: The ALT test is performed by an updated assay method. Please note that the reference intervals have been changed and are now sex specific. Performed By: #### B GLU #### [facility] [address] [place] [address] Anion gap [Moles/Vol] 13 mmol/L Normal 3-13 [facility] Comment on above: Performed By: #### B GLU #### [facility] [address] [place] [address] AST [Catalytic activity/Vol] 288 U/L High 15-46 [facility] Comment on above: Performed By: #### B GLU #### [facility] [address] [place] [address] Bilirubin [Mass/Vol] 0.6 mg/dL Normal 0.2-1.3 [facility] Comment on above: Performed By: #### B GLU #### [facility] [address] [place] [address] Calcium [Mass/Vol] 8.6 mg/dL Normal 8.4-10.4 [facility] Comment on above: Performed By: #### B GLU #### [facility] [address] [place] [address] Chloride [Moles/Vol] 92 mmol/L Low 98-107 [facility] Comment on above: Performed By: #### B GLU #### [facility] [address] [place] [address] CO2 [Moles/Vol] 14 mmol/L Low 22-30 [facility] Comment on above: Performed By: #### B GLU #### [facility] [address] [place] [address] Creatinine [Mass/Vol] 1.66 mg/dL High 0.52-1.25 [facility] Comment on above: Performed By: #### B GLU #### [facility] [address] [place] [address] GFR/1.73 sq M.predicted among blacks MDRD (S/P/Bld) [Vol rate/Area] 50.3 mL/min/{1.73_m2} Abnormal >60 [facility] Comment on above: Performed By: #### B GLU #### [facility] [address] [place] [address] GFR/1.73 sq M.predicted among non-blacks MDRD (S/P/Bld) [Vol rate/Area] 43.4 mL/min/{1.73_m2} Abnormal >60 [facility] Comment on above: Result Comment: KDIG O [...] secretion. Performed By: #### B GLU #### [facility] [address] [place] [address] Glucose [Mass/Vol] 114 mg/dL High 70-100 [facility] Comment on above: Performed By: #### B GLU #### [facility] [address] [place] [address] Potassium [Moles/Vol] 4.2 mmol/L Normal 3.5-5.1 [facility] Comment on above: Performed By: #### B GLU #### [facility] [address] [place] [address] Protein [Mass/Vol] 6.5 g/dL Normal 6.3-8.2 [facility] Comment on above: Performed By: #### B GLU #### [facility] [address] [place] [address] Sodium [Moles/Vol] 119 mmol/L Critically low 135-145 [facility] Comment on above: Performed By: #### B GLU #### [facility] [address] [place] [address] Urea nitrogen [Mass/Vol] 8 mg/dL Normal 7-17 [facility] Comment on above: Performed By: #### B GLU #### [facility] [address] [place] [address] Complete Urinalysison 2021 VOLUME, URINE 12 ml Normal [facility] Comment on above: Result Comment: . Performed By: #### B GLU #### [facility] [address] [place] [address] Appearance (U) Clear Normal Clear [facility] Comment on above: Result Comment: . Performed By: #### B GLU #### [facility] [address] [place] [address] Bilirubin,Urine Negative Normal Negative [facility] Comment on above: Result Comment: . Performed By: #### B GLU #### [facility] [address] [place] [address] Color (U) LIGHT YELLOW Normal Lt. Yellow [facility] Comment on above: Result Comment: . Performed By: #### B GLU #### [facility] [address] [place] [address] Glucose Ql (U) Normal Normal Normal (<70) [facility] Comment on above: Result Comment: . Performed By: #### B GLU #### [facility] [address] [place] [address] Ketone,Urine Negative Normal Negative [facility] Comment on above: Result Comment: . Performed By: #### B GLU #### [facility] [address] [place] [address] Leukocytes,Urine Negative Normal Negative [facility] Comment on above: Result Comment: . Performed By: #### B GLU #### [facility] [address] [place] [address] Nitrites,Urine Negative Normal Negative [facility] Comment on above: Result Comment: . Performed By: #### B GLU #### [facility] [address] [place] [address] Occult Blood,Urine Negative Normal Negative [facility] Comment on above: Result Comment: . Performed By: #### B GLU #### [facility] [address] [place] [address] pH,Urine 5.5 Normal 5.0-8.0 [facility] Comment on above: Result Comment: . Performed By: #### B GLU #### [facility] [address] [place] [address] Specific [place],Urine 1.007 Normal 1.005 - 1.030 [facility] Comment on above: Result Comment: . Performed By: #### B GLU #### [facility] [address] [place] [address] Total Protein,Urine Negative Normal Negative [facility] Comment on above: Result Comment: . Performed By: #### B GLU #### [facility] [address] [place] [address] Urobilinogen,Urine Normal Normal Normal (0-1) [facility] Comment on above: Result Comment: . Performed By: #### B GLU #### [facility] [address] [place] [address] Comprehensive Metabolic Pane peter 06-03-2022 Albumin [Mass/Vol] [...] - 1.25 mg/dL [facility] EGFR IF NonAfrican Jamaican 43.4 mL/min Abnormal 60 - PINF mL/min [...] 0.132 g/dL High 0 - 0.01 g/dL [facility] Comment on above: NOTE: This result is for medical treatment only. Analysis performed using non-forensic procedures. Interpretation and review of laboratory results Abnormal [facility] Test Performed by [facility], [address] , [place], [place] [id number] [place] [address] LAB [facility] Ethanol Serum/Plasmaon 06-03 Ethanol-Serum/Plasma 0.132 g/dL High 0.000-0.010 [facility] Comment on above: Result Comment: NOTE : This result is for medical treatment only. Analysis performed using non-forensic procedures. Performed By: #### B GLU #### [facility] [address] [place] [address] Hemogram w/ Autodiffon 06-03 Abs Baso Cnt 0.0 10*3/uL Normal 0.0-0.2 [facility] Comment on above: Performed By: #### B GLU #### [facility] [address] [place] [address] Abs Neutrophile Cnt 2.0 10*3/uL Normal 1.8-7.0 [facility] Comment on above: Performed By: #### B GLU #### [facility] [address] [place] [address] Basophils/100 WBC (Bld) 0.5 % Normal 0.0-2.0 [facility] Comment on above: Performed By: #### B GLU #### [facility] [address] [place] [address] Eosinophils (Bld) [#/Vol] 0.2 10*3/uL Normal 0.0-0.5 [facility] Comment on above: Performed By: #### B GLU #### [facility] [address] [place] [address] Eosinophils/100 WBC (Bld) 4.5 % Normal 1.0-6.0 [facility] Comment on above: Performed By: #### B GLU #### [facility] [address] [place] [address] Erythrocyte distribution width (RBC) [Ratio] 42.4 % High 11.5-14.5 [facility] Comment on above: Performed By: #### B GLU #### [facility] [address] [place] [address] Granulocytes/100 WBC (Bld) 50.8 % Normal 40.0-80.0 [facility] Comment on above: Performed By: #### B GLU #### [facility] [address] [place] [address] Hematocrit (Bld) [Volume fraction] 29.3 % Low 40.0-52.0 [facility] Comment on above: Performed By: #### B GLU #### [facility] [address] [place] [address] Hemoglobin (Bld) [Mass/Vol] 10.6 g/dL Low 13.0-18.0 [facility] Comment on above: Performed By: #### B GLU #### [place] [address] [place] [address] Lymphocytes (Bld) [#/Vol] 1.4 10*3/uL Normal 1.0-4.3 [facility] Comment on above: Performed By: #### B GLU #### [facility] [address] [place] [address] Lymphocytes/100 WBC (Bld) 34.8 % Normal 20.0-40.0 [facility] Comment on above: Performed By: #### B GLU #### [facility] [address] [place] [address] MCH (RBC) [Entitic mass] 34.4 pg High 26.0-34.0 [facility] Comment on above: Performed By: #### B GLU #### [facility] [address] [place] [address] MCHC 36.2 % High 32.0-36.0 [facility] Comment on above: Performed By: #### B GLU #### [facility] [address] [place] [address] MCV (RBC) [Entitic vol] 95.1 fL Normal 80.0-98.0 [facility] Comment on above: Performed By: #### B GLU #### [facility] [address] [place] [address] Monocytes (Bld) [#/Vol] 0.4 10*3/uL Normal 0.0-0.8 [facility] Comment on above: Performed By: #### B GLU #### [facility] [address] [place] [address] Monocytes/100 WBC (Bld) 8.7 % Normal 2.0-10.0 [facility] Comment on above: Performed By: #### B GLU #### [facility] [address] [place] [address] Platelet mean volume (Bld) [Entitic vol] 11.3 fL Normal 7.4-12.4 [facility] Comment on above: Result Comment: MPV is a calculated measurement using platelet volume ratio. Performed By: #### B GLU #### [facility] [address] [place] [address] Platelets (Bld) [#/Vol] 91 10*3/uL Low 140-440 [facility] Comment on above: Result Comment: Slid e scanned - slight thrombocytopenia Performed By: #### B GLU #### [facility] [address] [place] [address] RBC (Bld) [#/Vol] 3.08 10*6/uL Low 4.40-5.90 [facility] Comment on above: Performed By: #### B GLU #### [facility] [address] [place] [address] WBC (Bld) [#/Vol] 4.0 10*3/uL Normal 3.6-10.7 [facility] Comment on above: Performed By: #### B GLU #### [facility] [address] [place] [address] Lipaseon 06-03-2022 Lipase [Catalytic activity/Vol] 142 U/L Normal 23-300 [facility] Comment on above: Performed By: #### B GLU #### [facility] [address] [place] [address] Lipase [Catalytic activity/Vol] 142 U/L 23 - 300 U/L [facility] No Panel Informationon 06-03 Test Performed by [facility], [address] [place], [place] [id number] [place] [address] LAB [facility] Troponin Ion 06-03-2022 Troponin I.cardiac [Mass/Vol] ng/mL Normal 0.000-0.034 [facility] Comment on above: Result Comment: . Performed By: #### B GLU #### [facility] [address] [place] [address] Troponin x1on 06-03-2022 Troponin I.cardiac [Mass/Vol] ng/mL 0 - 0.034 ng/mL [facility] Comment on above: . Urinalysison 06-03-2022 Appearance (U) Clear Clear NA [facility] Comment on above: . Bilirubin Urine Negative [...] above: . Occult Blood,Urine Negative Negative mg/dL [facility] Comment on above: . pH (U) 5.5 [pH] [facility] Comment on above: . Specific [place], Urine 1.007 [facility] Comment on above: . Total Protein, Urine Negative Negativ e mg/dL [facility] Comment on above: . Urobilinogen, Urine Normal Normal ( 0-1) mg/dL [facility] Comment on above: . Volume 12 ml [facility] Comment on above: . Test Performed by [facility], [address] , [place], [place] [id number] [place] [address] LAB [facility] Basic Metabolic Panelon 04-19 Calcium [Mass/Vol] 9.3 mg/dL Normal 8.4-10.4 [facility] Comment on above: Performed By: #### N A3 #### [facility] [address] [place] [address] Glucose [Mass/Vol] 99 mg/dL Normal 70-100 [facility] Comment on above: Performed By: #### N A3 #### [facility] [address] [place] [address] Urea nitrogen [Mass/Vol] 5 mg/dL Low 7-17 [facility] Comment on above: Performed By: #### N A3 #### [facility] [address] [place] [address] Anion gap [Moles/Vol] 18 mmol/L High 3-13 [facility] Comment on above: Performed By: #### N A3 #### [facility] [address] [place] [address] CO2 [Moles/Vol] 12 mmol/L Low 22-30 [facility] Comment on above: Performed By: #### N A3 #### [facility] [address] [place] [address] Creatinine [Mass/Vol] 1.40 mg/dL High 0.52-1.25 [facility] Comment on above: Performed By: #### N A3 #### [facility] [address] [place] [address] GFR/1.73 sq M.predicted among blacks MDRD (S/P/Bld) [Vol rate/Area] 61.8 mL/min/{1.73_m2} Normal >60 [facility] Comment on above: Performed By: #### N A3 #### [facility] [address] [place] [address] GFR/1.73 sq M.predicted among non-blacks MDRD (S/P/Bld) [Vol rate/Area] 53.4 mL/min/{1.73_m2} Abnormal >60 [facility] Comment on above: Result Comment: KDIG O [...] secretion. Performed By: #### N A3 #### [facility] [address] [place] [address] Potassium [Moles/Vol] 3.5 mmol/L Normal 3.5-5.1 [facility] Comment on above: Performed By: #### N A3 #### [facility] [address] [place] [address] Sodium [Moles/Vol] 137 mmol/L Normal 135-145 [facility] Comment on above: Performed By: #### N A3 #### [facility] [address] [place] [address] Chloride [Moles/Vol] 107 mmol/L Normal 98-107 [facility] Comment on above: Performed By: #### N A3 #### [facility] [address] [place] [address] Anion gap [Moles/Vol] 18 mmol/L High 3 - 13 mmol/L [facility] Work Phone: [phone] Calcium [Mass/Vol] 9.3 mg/dL 8.4 - 10. 4 mg/dL [facility] Work Phone: [phone] Chloride [Moles/Vol] 107 mmol/L 98 - 10 7 mmol/L [facility] Work Phone: ) [phone] CO2 [Moles/Vol] 12 mmol/L Low 22 - 30 mmol/L [facility] Work Phone: [phone] Creatinine [Mass/Vol] 1.4 mg/dL High 0.52 - 1.25 mg/dL [facility] Work Phone: [phone] EGFR IF NonAfrican Jamaican 53.4 mL/min Abnormal 60 - PINF mL/min [facility] Work Phone: [phone] Comment on above: [...] [Mass/Vol] 99 mg/dL 70 - 100 mg/dL [facility] Work Phone: [phone] Interpretation and review of laboratory results Abnormal [facility] Work Phone: [phone] Potassium [Moles/Vol] 3.5 mmol/L 3.5 - 5.1 mmol/L [facility] Work Phone: [phone] Sodium [Moles/Vol] 137 mmol/L 135 - 145 mmol/L [facility] Work Phone: [phone] Urea nitrogen (BldV) [Mass/Vol] 5 mg/dL Low 7 - 17 mg/dL [facility] Work Phone: [phone] Test Performed by [facility], [address] , [place], [place] [id number] [place] [address] LAB [facility] Work Phone: ) CBC with [...] Interpretation and review of laboratory results Abnormal [employer] Work Phone: () [phone] Lymphocytes (Bld) [#/Vol] [...] 99.1 fL High 80 - 98 fL [facility] Work Phone: () Monocytes (Bld) [#/Vol] 0.4 10*3/uL 0 - 0.8 10*3/uL [facility] Work Phone: () [phone] Monocytes/100 WBC (Bld) 7.8 % 2 - 10 % [facility] Work Phone: [phone] Platelet distribution width (Bld) [Ratio] 13.0 % 11.5 - 14.5 % [facility] Work Phone: ) Platelet mean volume (Bld) [Entitic vol] 9.7 fL 7.4 - 12.4 fL [facility] Work Phone: [phone] Comment on above: MPV is a calculated measurement using platelet volume ratio. Platelets (Bld) [#/Vol] 112 10*3/uL Low 140 - 440 10*3/uL [facility] Work Phone: [phone] RBC (Bld) [#/Vol] 3.46 10*6/uL Low 4.4 - 5.9 10*6/uL [facility] Work Phone: [phone] WBC (Bld) [#/Vol] 5.1 10*3/uL 3.6 - 10.7 10*3/uL [facility] Work Phone: [phone] Test Performed by [facility], [facility] [place] , [address] LAB [facility] Work Phone: [phone] Abdomen Pelvis Wo Contras ton 05-15-2022 Patient Name: WOODY NI Computed Tomography ACCESSION EXAM DATE/TIME PROCEDURE ORDERING PROVIDER [id number] 05/15/2022 17:[address] Abdomen/Pelvis (No MD AMADA, HANY Lawson PO, No IV) CPT code 73044 Reason For Exam (CT Abdomen/Pelvis (No PO, [...] Transcribed Date and Time: 05/15/2022 5:59 [facility] Veronica Kam MD - 05/15/2022 Patient Name: WOODY NI Computed Tomography ACCESSION EXAM DATE/TIME PROCEDURE ORDERING PROVIDER [id number] 05/15/2022 17:[address] Abdomen/Pelvis (Soheila YBARRA MD, HANY Lawson PO, No IV) CPT code 96626 Reason For Exam (CT Abdomen/Pelvis (No PO, [...] Tomography ACCESSION EXAM DATE/TIME PROCEDURE ORDERING PROVIDER [id number] 05/15/2022 17:[address] Abdomen/Pelvis (No MD AMADA, HANY Lawson PO, No IV) CPT code 95407 Reason For Exam (CT Abdomen/Pelvis (No PO, [...] Transcribed Date and Time: 05/15/2022 5:59 Normal [facility] Complete Urinalysison 2021 Bacteria LM.HPF (Urine sed) [#/Area] Negative Normal Negative [facility] Comment on above: Result Comment: . Performed By: #### B GLU #### [facility] [address] [place] [address] Cast, Hyaline 0 - 2 Abnormal Negative [facility] Comment on above: Result Comment: . Performed By: #### B GLU #### [facility] [address] [place] [address] Mucous Threads Few Normal Negative [facility] Comment on above: Result Comment: . Performed By: #### B GLU #### [facility] [address] [place] [address] RBC LM.HPF (Urine sed) [#/Area] Negative Normal 0-2 [facility] Comment on above: Result Comment: . Performed By: #### B GLU #### [facility] [address] [place] [address] Squamous Epithelial 3 - 5 Normal 3-5 [facility] Comment on above: Result Comment: . Performed By: #### B GLU #### [facility] [address] [place] [address] VOLUME, URINE 12 ml Normal [facility] Comment on above: Result Comment: . Performed By: #### B GLU #### [facility] [address] [place] [address] WBC, Urine 0 - 2 Normal 0-5 [facility] Comment on above: Result Comment: . Performed By: #### B GLU #### [facility] [address] [place] [address] Appearance (U) Clear Normal Clear [facility] Comment on above: Result Comment: . Performed By: #### B GLU #### [facility] [address] [place] [address] Bilirubin,Urine Negative Normal Negative [facility] Comment on above: Result Comment: . Performed By: #### B GLU #### [facility] [address] [place] [address] Color (U) LIGHT YELLOW Normal Lt. Yellow [facility] Comment on above: Result Comment: . Performed By: #### B GLU #### [facility] [address] [place] [address] Glucose Ql (U) Normal Normal Normal (<70) [facility] Comment on above: Result Comment: . Performed By: #### B GLU #### [facility] [address] [place] [address] Ketone,Urine Negative Normal Negative [facility] Comment on above: Result Comment: . Performed By: #### B GLU #### [facility] [address] [place] [address] Leukocytes,Urine Negative Normal Negative [facility] Comment on above: Result Comment: . Performed By: #### B GLU #### [facility] [address] [place] [address] Nitrites,Urine Negative Normal Negative [facility] Comment on above: Result Comment: . Performed By: #### B GLU #### [facility] [address] [place] [address] Occult Blood,Urine Negative Normal Negative [facility] Comment on above: Result Comment: . Performed By: #### B GLU #### [facility] [address] [place] [address] pH,Urine 5.5 Normal 5.0-8.0 [facility] Comment on above: Result Comment: . Performed By: #### B GLU #### [facility] [address] [place] [address] Protein (U) [Mass/Vol] 20 mg/dL Abnormal Negative [facility] Comment on above: Result Comment: . Performed By: #### B GLU #### [facility] [address] [place] [address] Specific [place],Urine 1.006 Normal 1.005 - 1.030 [facility] Comment on above: Result Comment: . Performed By: #### B GLU #### [facility] [address] [place] [address] Urobilinogen,Urine Normal Normal Normal (0-1) [facility] Comment on above: Result Comment: . Performed By: #### B GLU #### [facility] [address] [place] [address] Hemogram w/ Autodiffon 05-15 Abs Baso Cnt 0.0 10*3/uL Normal 0.0-0.2 [facility] Comment on above: Performed By: #### N A3 #### [facility] [address] [place] [address] Abs Neutrophile Cnt 3.4 10*3/uL Normal 1.8-7.0 [facility] Comment on above: Performed By: #### N A3 #### [facility] [address] [place] [address] Basophils/100 WBC (Bld) 0.8 % Normal 0.0-2.0 [facility] Comment on above: Performed By: #### N A3 #### [place] [address] [place] [address] Eosinophils (Bld) [#/Vol] 0.0 10*3/uL Normal 0.0-0.5 [facility] Comment on above: Performed By: #### N A3 #### [facility] [address] [place] [address] Eosinophils/100 WBC (Bld) 0.2 % Low 1.0-6.0 [facility] Comment on above: Performed By: #### N A3 #### [facility] [address] [place] [address] Erythrocyte distribution width (RBC) [Ratio] 13.0 % Normal 11.5-14.5 [facility] Comment on above: Performed By: #### N A3 #### [facility] [address] [place] [address] Granulocytes/100 WBC (Bld) 67.5 % Normal 40.0-80.0 [facility] Comment on above: Performed By: #### N A3 #### [facility] [address] [place] [address] Hematocrit (Bld) [Volume fraction] 34.3 % Low 40.0-52.0 [facility] Comment on above: Performed By: #### N A3 #### [facility] [address] [place] [address] Hemoglobin (Bld) [Mass/Vol] 11.8 g/dL Low 13.0-18.0 [facility] Comment on above: Performed By: #### N A3 #### [facility] [address] [place] [address] Lymphocytes (Bld) [#/Vol] 1.2 10*3/uL Normal 1.0-4.3 [facility] Comment on above: Performed By: #### N A3 #### [facility] [address] [place] [address] Lymphocytes/100 WBC (Bld) 23.3 % Normal 20.0-40.0 [facility] Comment on above: Performed By: #### N A3 #### [facility] [address] [place] [address] MCH (RBC) [Entitic mass] 34.1 pg High 26.0-34.0 [facility] Comment on above: Performed By: #### N A3 #### [facility] [address] [place] [address] MCHC 34.4 % Normal 32.0-36.0 [facility] Comment on above: Performed By: #### N A3 #### [facility] [address] [place] [address] MCV (RBC) [Entitic vol] 99.1 fL High 80.0-98.0 [facility] Comment on above: Performed By: #### N A3 #### [facility] [address] [place] [address] Monocytes (Bld) [#/Vol] 0.4 10*3/uL Normal 0.0-0.8 [facility] Comment on above: Performed By: #### N A3 #### [facility] [address] [place] [address] Monocytes/100 WBC (Bld) 7.8 % Normal 2.0-10.0 [facility] Comment on above: Performed By: #### N A3 #### [facility] [address] [place] [address] Platelet mean volume (Bld) [Entitic vol] 9.7 fL Normal 7.4-12.4 [facility] Comment on above: Result Comment: MPV is a calculated measurement using platelet volume ratio. Performed By: #### N A3 #### [facility] [address] [place] [address] Platelets (Bld) [#/Vol] 112 10*3/uL Low 140-440 [facility] Comment on above: Performed By: #### N A3 #### [facility] [address] [place] [address] RBC (Bld) [#/Vol] 3.46 10*6/uL Low 4.40-5.90 [facility] Comment on above: Performed By: #### N A3 #### [facility] [address] [place] [address] WBC (Bld) [#/Vol] 5.1 10*3/uL Normal 3.6-10.7 [facility] Comment on above: Performed By: #### N A3 #### [facility] [address] [place] [address] Urinalysison 07-28-2022 Appearance (U) Clear Clear NA [facility] Work Phone: [phone] Comment on above: . Bacteria, UA Negative [...] Interpretation and review of laboratory results Abnormal [facility] Work Phone: [phone] [phone] Ql (U) Negative Negative mg/dL [facility] Work Phone: [phone] Comment on above: . LEUKOCYTES, UA Negative Negative Emma/uL [facility] Work Phone: [phone] Comment on above: . Mucous Threads Few Negative /[LPF] [facility] Work Phone: [phone] Comment on above: . Nitrite, Urine Negative Negative NA [facility] Work Phone: [phone] Comment on above: . Occult Blood,Urine Negative Negative mg/dL [facility] Work Phone: [phone] Comment on above: . pH (U) 5.5 [pH] [facility] Work Phone: [phone] Comment on above: . Protein (U) [Mass/Vol] 20 mg/dL Abnormal Negative [facility] Work Phone: [phone] Comment on above: . RBC (U) [#/Vol] Negative 0 - 2 /[HPF] [facility] Work Phone: [phone] Comment on above: . Specific [place], Urine 1.006 [facility] Work Phone: [phone] Comment on above: . Squam Epithel, UA 3-5 3 - 5 /[HPF] [facility] Work Phone: [phone] Comment on above: . Urobilinogen, Urine Normal Normal ( 0-1) mg/dL [facility] Work Phone: Comment on above: . Volume 12 ml [facility] Work Phone: Comment on above: . WBC, UA /[HPF] 0 - 5 /[HPF] [facility] Work Phone: Comment on above: . Test Performed by [facility], [address] , [address] LAB [facility] Work Phone: CT Abdomen Pelvis Wo Fannie ton 06-24-2020 Chris, [facility] Incoming Radiology Results From [facility] - 06/24/2020 11:47 PM EDT Patient Name: WOODY NI ---CT--- Exam Date/Time 06/24/2020 23:23:[address] Abdomen/Pelvis (No PO, No IV) Ordering Physician [id number] CANTU Accession Number [id number] CPT4 Codes 12255 (CT Abdomen/Pelvis (No PO, No IV)) Reason [...] [place] --- Final --- Dictating Physician: MD HAKNS WENDELL Signed Date and Time: 06/24/2020 11:46 pm Signed by: MD HANKS WENDELL Transcribed Date and Time: 06/24/2020 11:47 [place] Patient Name: WOODY NI ---CT--- Exam Date/Time 06/24/2020 23:23:[address] Abdomen/Pelvis (No PO, No IV) Ordering Physician [id number] CANTU Accession Number [id number] CPT4 Codes 33212 (CT Abdomen/Pelvis (No PO, No IV)) Reason [...] WENDELL Transcribed Date and Time: 06/24/2020 11:47 [place] Comprehensive Metabolic Pane peter 06-24-2020 Albumin [Mass/Vol] 4.6 g/dL 3.5 - 5 g/dL [place], [place] ALP [Catalytic activity/Vol] 62 U/L 38 - 126 U/L [place] ALT [Catalytic activity/Vol] 60 U/L High 0 - 49 U/L [place] Comment on above: The ALT test is perf ormed by an updated assay method. Please note that the reference intervals have been changed and are now sex specific. Anion gap [Moles/Vol] 13 mmol/L [place], [place] AST [Catalytic activity/Vol] 74 U/L High 15 - 46 U/L [place] Bilirubin Ql (U) 1.1 mg/dL 0.2 - 1.3 mg/dL [place] Calcium [Mass/Vol] 9.4 mg/dL 8.4 - 10. 4 mg/dL [place] Chloride [Moles/Vol] 100 mmol/L 98 - 10 7 mmol/L [place] CO2 [Moles/Vol] 26 mmol/L 22 - 30 mmol/L [place] Creatinine [Mass/Vol] 0.98 mg/dL 0.52 - 1.25 mg/dL [place] EGFR IF NonAfrican Jamaican 83.2 mL/min >60 [place] Comment on above: KDIGO guidelines pro [...] MDRD (S/P/Bld) [Vol rate/Area] mL/min/{1.73_m2} >60 mL/min [place] Glucose [Mass/Vol] 108 mg/dL High 70 - 100 mg/dL [place] Interpretation and review of laboratory results Abnormal [place] Potassium [Moles/Vol] 3.4 mmol/L Low 3.5 - 5.1 mmol/L [place] Protein [Mass/Vol] 8.0 g/dL 6.3 - 8.2 g/dL [place] Sodium [Moles/Vol] 138 mmol/L 135 - 145 mmol/L [place] Urea nitrogen [Mass/Vol] 13 mg/dL 7 - 20 mg/dL [place] Hemogram (CBC) w/Auto Diffon 06-24-2020 Absolute Baso # 0.1 10*3/uL 0 - 0.2 10*3/uL [place] Absolute Neut # 3.6 10*3/uL 1.8 - 7 10*3/uL [place] Basophils/100 WBC (Bld) 0.7 % 0 - 2 % [place] Eosinophils (Bld) [#/Vol] 0.3 10*3/uL 0 - 0.5 10*3/uL [place] Eosinophils/100 WBC (Bld) 4.2 % 1 - 6 % [place] Erythrocyte distribution width (RBC) [Ratio] 13.5 % 11.5 - 14.5 % [place] Granulocytes/100 WBC (Bld) 50.8 % 40 - 80 % [place] Hematocrit (Bld) [Volume fraction] 44.5 % 40 - 52 % [place] Hemoglobin (Bld) [Mass/Vol] 15.0 g/dL 13 - 18 g/dL [place] Lymphocytes (Bld) [#/Vol] 2.7 10*3/uL 1 - 4.3 10*3/uL [place] Lymphocytes/100 WBC (Bld) 37.0 % 20 - 40 % [place] MCH (RBC) [Entitic mass] 32.1 pg 26 - 34 pg [place] MCHC (RBC) [Mass/Vol] 33.7 % 32 - 36 % [facility] [place] MCV (RBC) [Entitic vol] 95.2 fL 80 - 98 fL [place] Monocytes (Bld) [#/Vol] 0.5 10*3/uL 0 - 0.8 10*3/uL [place] Monocytes/100 WBC (Bld) 7.3 % 2 - 10 % [place] Platelet mean volume (Bld) [Entitic vol] 8.3 fL 7.4 - 10.4 fL [place] Platelets (Bld) [#/Vol] 157 10*3/uL 140 - 440 10*3/uL [place] RBC (Bld) [#/Vol] 4.67 10*6/uL 4.4 - 5.9 10*6/uL [place] WBC (Bld) [#/Vol] 7.2 10*3/uL 3.6 - 10.7 10*3/uL [place] Lipaseon 06-24-2020 Lipase [Catalytic activity/Vol] 26 U/L 23 - 300 U/L [place] Otheron 06-24-2020 Test Performed by [facility], [address] Test Performed by [facility], [address] Urinalysison 06-24-2020 Appearance (U) Clear Clear [place] Comment on above: . Bilirubin Urine Negative Negative mg/dL [place] Comment on above: . Color (U) Light-Yellow Lt. Yellow [place] Comment on above: . Glucose, Ur Normal Normal (<70) mg/dL [place] Comment on above: . Ketones Ql (U) Negative Negative mg/dL [place] Comment on above: . LEUKOCYTES, UA Negative Negative Emma/uL [place] Comment on above: . Nitrite, Urine Negative Negative [place] Comment on above: . Occult Blood,Urine Negative Negative mg/dL [place] Comment on above: . pH (U) 6.0 [pH] [place] Comment on above: . Protein (U) [Mass/Vol] Negative Negat zenia mg/dL [place] Comment on above: . Specific [place], Urine 1.007 [place] Comment on above: . Urobilinogen, Urine Normal Normal ( 0-1) mg/dL [place] Comment on above: . XR CHEST PORTABLEon 06-24-20 Chris, [facility] Incoming Radiology Results From [facility] - 06/24/2020 10:50 PM EDT Patient Name: WOODY NI ---Diagnostic Radiology--- Exam Date/Time 06/24/2020 22:50:03 EDT Exam CR Chest Portable Ordering Physician MACK DAVIS Accession Number [id number] CPT4 Codes 15952 () Reason For Exam productive cough 3 [...] WENDELL Transcribed Date and Time: 06/24/2020 10:50 [place] Patient Name: WOODY NI ---Diagnostic Radiology--- Exam Date/Time 06/24/2020 22:50:03 EDT Exam CR Chest Portable Ordering Physician [id number] BERRY Accession Number [id number] CPT4 Codes 64319 () Reason For Exam productive cough 3 [...] WENDELL Transcribed Date and Time: 06/24/2020 10:50 [facility] [place] [place] CT ABDOMEN W CONTRAST Additi onal Contrast? Oralon 07-19-2019 Patient Name: WOODY NI ---CT--- Exam Date/Time 07/19/2019 10:40:[address] Abdomen w/ Contrast (IV Only) Ordering Physician [id number] -DANIEL LONDON Accession Number [id number] CPT4 Codes Q9967 (CT ISOVUE 370MG/ML&[id number]&ML&1 ), 72949 (CT Abdomen w/ Contrast (IV Only)) Reason [...] NELSON Transcribed Date and Time: 07/19/2019 1:34 [place] Hcris, [facility] Incoming Radiology Results From [facility] - 07/19/2019 1:34 PM EDT Patient Name: WOODY NI ---CT--- Exam Date/Time 07/19/2019 10:40:[address] Abdomen w/ Contrast (IV Only) Ordering Physician [id number] -DANIEL LONDON Accession Number [id number] CPT4 Codes Q9967 (CT ISOVUE 370MG/ML&[id number]&ML&1 ), 34641 (CT Abdomen w/ Contrast (IV Only)) Reason [...] Time: 07/19/2019 1:33 pm Signed by: MD MEO B NELSON Transcribed Date and Time: 07/19/2019 1:34 [facility] [place] XR RIBS LEFT (2 VIEWS)on Patient Name: WOODY NI ---Diagnostic Radiology--- Exam Date/Time 07/19/2019 09:50:11 EDT Exam CR Ribs 2 Views Left Ordering Physician [id number] LIN Accession Number [id number] CPT4 Codes 06132 () Reason For Exam intercostal pain Report [...] JASON Transcribed Date and Time: 07/19/2019 9:50 [place] Chris, [facility] Incoming Radiology Results From [facility] - 07/19/2019 9:51 PM EDT Patient Name: WOODY NI ---Diagnostic Radiology--- Exam Date/Time 07/19/2019 09:50:11 EDT Exam CR Ribs 2 Views Left Ordering Physician DANIEL ARTEAGA Accession Number [id number] CPT4 Codes 61789 () Reason For Exam intercostal pain Report [...] JASON Transcribed Date and Time: 07/19/2019 9:50 [place] BUN 07-16-2019 Urea nitrogen [Mass/Vol] 20 mg/dL 7 - 20 mg/dL [place] Creatinine, Serumon 07-16-20 19 Creatinine [Mass/Vol] 1.13 mg/dL 0.52 - 1.25 mg/dL [place] EGFR IF NonAfrican Jamaican >60.0 >60 mL/min [place] Comment on above: Source- MDRD equatio n with creatinine calibration to IDMS(NKDEP) eGFR not recommended for drug dose adjustment GFR/1.73 sq M predicted among blacks MDRD (S/P/Bld) [Vol rate/Area] mL/min/{1.73_m2} >60 mL/min [place] Otheron 07-16-2019 Test Performed by [facility], [address] [place] [address]. [address] CASE MANAGEMon 06-20-2017 CASE MANAGEM HNO ID: [id number] thor: Emilee (Rn) ELEANOR Voervice: Case ManagementAuthor Type: Registered NurseType: Care Mgt Progress NoteFiled: 06/20/2017 11:32 AMNote Text:CARE MANAGEMENT DISCHARGE NOTESERVICE DATE: 06/20/2017SERVICE TIME: 11:25 AM LOS: 2 daysAdmission Date: 06/18/2017DISCHARGE ARRANGEMENT (list agency and phone number)Home and Home careProvider: [facility] HLIQQAD COMMUNICATION:Primary Care Physician: Jani Quezada Phone Number: [phone] to [facility] - Received return call from Adama @ [facility] @11:30am and informed of patient discharge home today and all dc documentssent to office thru AllscriptsTRANSPORTATION ARRANGEMENTS:Car - Family to transport homeADDITIONAL CONTACT RESOURCES:FOLLOW UP: With Dr Holder in 1-2 weeks (or as already scheduled)[phone] NATURE: Emilee Vo RN PATIENT NAME: Woody NiDATE: June 20, 2017 : 11:25 AM PAGER/CONTACT #: [phone] [place] 06-20-2017 [facility] HNO ID: [id number] thor: ELEANOR Vasqeuzervice: NeurosurgeryAuthor Type: Registered NurseType: Discharge SummariesFiled: 06/23/2017 7:04 PMNote Text:DISCHARGE SUMMARYPATIENT NAME: Woody Ni ADMISSION DATE: 06/18/2017MRN: [id number] DISCHARGE DATE: 06/20/2017Attending Physician: No att. providers [...] compression. The significant areas affected extend from O9xqenuxe S1.?Operations During Hospitalization: L2, L3, L4, L5, [...] Medfluticasone (FLONASE) 50 mcg/actuation nasal sprayUse 1 [place] in the nose once daily as needed.Historical [...] RN PAGER:DATE: June 23, 2017TIME: 6:53 PM [facility] CONSULT PROGon 06-20-2017 CONSULT PROG HNO ID: [id number] thor: Vianey Lau: General Internal MedicineAuthor Type: [...] Vianey Tiwari MD PATIENT NAME: Woody Ni [facility] NURSING PROGon 06-20-2017 NURSING PROG HNO ID: [id number] thor: Leonora (Rn) ELEANOR Srivastavaervice: (none)Author Type: Registered NurseType: Nursing Progress NoteFiled: 06/20/2017 10:39 AMNote Text:Discharge instructions provided regarding laminectomy, percoset, follow upappointment. Questions answered, patient verbalized understanding.Discharged via wheelchair with spouse and PCNA. [facility] PROGRESSon 06-20-2017 PROGRESS HNO ID: [id number] thor: Abel Londono: NeurosurgeryAuthor Type: PhysicianType: Progress [...] SERVICE: 06/20/2017TIME of SERVICE: 9:25 AM Normal [facility] Basic Metabolic Panlon 06-19 Anion gap 9 mmol/L Normal 0-15 [facility] Comment on above: Performed By: #### C ONABO ####[facility] [address] [place] [address] Calcium 8.4 mg/dL Low 8.5-10.5 [facility] Comment on above: Performed By: #### C ONABO ####[facility] [address] [place] [address] Chloride 102 mmol/L Normal 98-110 [facility] Comment on above: Performed By: #### C ONABO ####[facility] [address] [place] [address] CO2 32 mmol/L Normal 23-32 [facility] Comment on above: Result Comment: Rech ecked Performed By: #### C ONABO ####[facility] [address] [place] [address] Creatinine 0.86 mg/dL Normal 0.70-1.40 [facility] Comment on above: Performed By: #### C ONABO ####[facility] [address] [place] [address] eGFR (non-black) mL/min/{1.73_m2} Normal [facility] Comment on above: Performed By: #### C ONABO ####[facility] [address] [place] [address] Result Comment: eGFR (Estimated GFR) Units of [...] Glucose mass conc 114 mg/dL High 65-100 [facility] Comment on above: Performed By: #### C ONABO ####[facility] [address] [place] [address] Potassium molar conc 3.4 mmol/L Low 3.5-5.0 [facility] Comment on above: Performed By: #### C ONABO ####[facility] [address] [place] [address] Sodium 143 mmol/L Normal 135-146 [facility] Comment on above: Performed By: #### C ONABO ####[facility] [address] [place] [address] Urea nitrogen 6 mg/dL Low 10-25 [facility] Comment on above: Performed By: #### C ONABO ####[facility] [address] [place] [address] CASE MANAGEMon 06-19-2017 CASE MANAGEM HNO ID: [id number] thor: Vanesa (Rn) ELEANOR Wilsonervice: Case ManagementAuthor [...] 19, 2017 : 2:47 PM PAGER/CONTACT #: [phone] Normal [facility] CBCon 06-19-2017 Erythrocyte distribution width Auto Ratio (RBC) 14.0 % Normal 11.5-15.0 [facility] Comment on above: Performed By: #### C ONABO ####[facility] [address] [place] [address] Erythrocytes (RBC) 4.15 10*6/uL Low 4.20-6.00 [facility] Comment on above: Performed By: #### C ONABO ####[facility] [address] [place] [address] Hematocrit (HCT) 37.8 % Low 39.0-51.0 [facility] Comment on above: Performed By: #### C ONABO ####[facility] [address] [place] [address] Hemoglobin mass conc (Bld) 12.9 g/dL Low 13.0-17.0 [facility] Comment on above: Performed By: #### C ONABO ####[facility] [address] [place] [address] MCH 31.1 pG Normal 26.0-34.0 [facility] Comment on above: Performed By: #### C ONABO ####[facility] [address] [place] [address] MCHC mass conc (RBC) 34.1 g/dL Normal 30.5-36.0 [facility] Comment on above: Performed By: #### C ONABO ####[facility] [address]oxd030[address] MCV 91.1 fL Normal 80.0-100.0 [facility] Comment on above: Performed By: #### C ONABO ####[facility] G[address]wlaxclk5646 [address] Platelet mean volume (PMV) 11.1 fL Normal 9.0-12.7 [facility] Comment on above: Performed By: #### C ONABO ####[facility] Qvyjhtgppa4940 [address] Platelets 122 10*3/uL Low 150-400 [facility] Comment on above: Performed By: #### C ONABO ####[facility] Ryxt[address]jkaww7093 [address] WBC (Leukocytes) 8.26 10*3/uL Normal 3.70-11.00 [facility] Comment on above: Performed By: #### C ONABO ####[facility] [address] [place], [place] [id number] CONSULT PROGon 06-19-2017 CONSULT PROG HNO ID: [id number] thor: Vianey Lau: General Internal MedicineAuthor Type: [...] Vianey Tiwari MD PATIENT NAME: Woody Ni [facility] NURSING PROGon 06-19-2017 NURSING PROG HNO ID: [id number] thor: Zachariah LarsenRn) Doug Mcpherson: NursingAuthor Type: Registered NurseType: Nursing Progress NoteFiled: 06/19/2017 11:39 AMNote Text: Nursing Progress NotePatient Name: Woody NiMRN: [id number] Location: [id number]__ 0745- Assessment complete. Patient extremely agitated, belligerent [...] she said he slept most of the kjqnk1220- Patient says he is not "having bad thoughts" any longer since hereceived his Lexapro.This note was completed by: Zachariah Mcpherson RN [facility] NURSING PROG HNO ID: [id number] thor: Ida Torres) Doug Gibson: (none)Author Type: [...] scheduled for 4x's during the day not yono20teg, his flexeril 3x's a day as needed, [...] agitated stating I was lying about himsleeping. [facility] PROGRESSon 06-19-2017 PROGRESS HNO ID: [id number] thor: Korin Gatese: NeurosurgeryAuthor Type: Nurse PractitionerType: [...] orderedDiscussed with Dr. BurtATURE: Korin E Guilda, SEALER SANDER PATIENT NAME: Woody PosadaTE: June 19, 2017 : 9:17 AM PAGER: [phone] [facility] THERAPY NTon 06-19-2017 THERAPY NT HNO ID: [id number] thor: Emilee (Ot/L) CecilService: Occupational TherapyAuthor Type: Occupational TherapistType: Therapy (PT/OT/Speech/Resp)Filed: 06/19/2017 1:34 PMNote Text:Occupational Therapy EvaluationSERVICE DATE: 06/19/2017SERVICE TIME: 1105 to 1142ROOM: [id number] Discharge Disposition: Home OTRecommended Discharge Disposition Comments: [...] activities of dailyliving (ADL)Interventions Provided: Evaluation;Therapeutic Activity (57128);Self CareHome Management (35871)$ Evaluation-Low (98352) Billed Units: 1 unitTherapeutic Activity (28657) Treatment Minutes: 101 unitSkilled Intervention(s): Pt instructed [...] in supineto sit with log roll technique.Self Prison Management (58768) Treatment Minutes: 141 unitSkilled Intervention(s): Pt educated [...] safe technique fordonning/doffing pants/underwear with use of firer boiler. 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)Entry To Home: Stairs;Without [...] distal: NT per pt request d/t IVplacement, deputy sheriff k9 handler: WFLRight Upper Extremity Strength: Prox: 4/5, distal: 4/5, deputy sheriff k9 handler: WFLBalance: Dynamic Standing;Static StandingStatic Standing Balance: Stand [...] June 19, 2017 : 1:21 PM PAGER: [phone] [facility] THERAPY NT HNO ID: [id number] thor: Samantha (Pt) Gaele: Physical TherapyAuthor Type: Physical TherapistType: Therapy (PT/OT/Speech/Resp)Filed: 06/19/2017 11:21 AMNote Text:Physical Therapy EvaluationSERVICE DATE: 06/19/2017SERVICE TIME: 1003 to 1038 time allowed for chart reviewROOM: [id number] Discharge Disposition: Home PTRecommended Discharge Disposition Comments: [...] Weakness(generalized);Uns teadiness on feetInterventions Provided: Evaluation;Therapeutic Activity (32837);GaitTraining (53252)$ Evaluation-Low (23741) Billed Units: 1 unitTherapeutic Activity (53694) Treatment Minutes: 141 unitSkilled Intervention(s):Instructe d patient [...] stabilitywith gait, parameters of wearing LSOGait Training (85009) Treatment Minutes: 50 unitsSkilled Intervention(s):Instructi on in [...] With: Family (spouse and grand kids)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)Entry To Home: Stairs;Without [...] ns: Intact and as follows: peripheral IV, O3Wgtgdx see discipline specific clinical documentation flowsheet forcomplete details for this therapy evaluation/treatment.SIGN ATURE: Samantha Trujillo PT PATIENT NAME: Woody PosadaTE: June 19, 2017 : 11:01 AM PAGER/CONTACT #: [phone] [facility] ANES Parminder 06-18-2017 ANES POST HNO ID: [id number] thor: Emmanuelle Grecoervice: AnesthesiologyAuthor Type: AnesthesiologistType: Anesthesia [...] 18, 2017 : 3:44 PM PAGER/CONTACT #: [phone] [facility] ANES PREOPon 06-18-2017 ANES PREOP HNO ID: [id number] thor: Emmanuelle Grecoervice: AnesthesiologyAuthor Type: AnesthesiologistType: Anesthesia [...] June 18, 2017 : 11:19 AM CSN: [id number] [facility] BRIEF OP NOTon 06-18-2017 BRIEF OP NOT HNO ID: [id number] thor: Abel J DonichService: NeurosurgeryAuthor Type: PhysicianType: Brief Op NoteFiled: 06/18/2017 2:28 PMNote Text:BRIEF OPERATIVE NOTEPatient Name: Woody NiMRN: [id number] ID: [id number] Date: 06/18/2017Surgeon(s) and Marker Delivery(s):Surgeon(s) and Role: * Abel Holder - PrimaryProcedures and Anesthesia:Procedure(s) and Anesthesia Type: * DECOMPRESSION LAMINECTOMY LUMBAR POSTERIOR LEVEL 1 WITH C ARM -General * DECOMPRESSION LAMINECTOMY 1ST ADD'L LUMBAR SEGMENT - GeneralFindings: See full op reportEstimated Blood Loss: 150ccIntravenous Fluids: see anesthesiaCondition: goodSpecimens: nonePostop Diagnosis: lumbar stenosisSignature: Abel Holder, MDDate: June 18, 2017Time: 2:28 PM [facility] CASE MGT INIT [facility] 2016 CASE MGT [facility] HNO ID: [id number] thor: Monica (Rn) ELEANOR Maloneervice: Care ManagementAuthor Type: Registered NurseType: Care Mgt Initial AssessmentFiled: 06/18/2017 8:00 PMNote Text:CARE MANAGEMENT: ASSESSMENT AND DISCHARGE PLANSERVICE DATE: 06/18/2017SERVICE TIME: IMARY CARE PHYSICIAN:Jani Quezada, SANIYAhone: [phone] STATUS: InpatientPOTENTIAL DISCHARGE PLANSHomeHome OT/PTSkilled Nursing Facility/Intermediate Care FacilityTo Be DeterminedPatient/Represe ntative Stated Goals: to return homeNeeds Prior to Discharge: To Be Determined;OT/PT EvaluationHealth Insurance: Medicare, MedicaidLiving Arrangement: HomeLives With: with sig. otherFinancial Resources: DisabledPrimary Contact:Extended Emergency Contact InformationPrimary Emergency Contact: Susie Carl Jshrxqnj: Significant otherSupportive: YesOther Important Patient Contacts: NoneCAREGIVER [...] Prior to Admission: Aerosols/Intermittent positivebreathing/Respira tory TreatmentsBedside [facility] PAPHEALTH:Health Issues Impacting Discharge Plan: Lumbar [...] days? NoHas the Patient Been in a Long-Term Facility in the Past 30 days? NoFREEDOM [...] 18, 2017 : 7:55 PM PAGER/CONTACT #: [phone] [facility] CONSULTon 06-18-2017 CONSULT HNO ID: [id number] thor: Vianey SharmaService: General Internal MedicineAuthor Type: [...] PATIENT NAME: Woody Martin: June 18, 2017 [facility] HISTORY PHYSICALon 7 HISTORY PHYSICAL HNO ID: [id number] thor: Abel HolderService: NeurosurgeryAuthor Type: PhysicianType: HANDPFiled: [...] June 18, 2017 : 12:09 PM PAGER: [facility] NURSING PROGon 06-18-2017 NURSING PROG HNO ID: [id number] thor: Josefina LarsenRnELEANOR Glezervice: NursingAuthor Type: Registered NurseType: Nursing Progress NoteFiled: 06/18/2017 11:10 AMNote Text:1010 pt to ASCU 7. AANDOx3. SENIOR TCX4. Ambulates with cane. Pt c/o back pain.PIV started without difficulty. VSS no s/sx of distress.1057 pt ready for OR. Family @ [facility]. [facility] OPERATIVE NOon 06-18-2017 OPERATIVE NO HNO ID: [id number] thor: Abel HolderService: NeurosurgeryAuthor Type: PhysicianType: Operative ReportFiled: 06/20/2017 9:08 AMNote Text:[facility]- Operative ReportWOODY NIDOB: 1960 AGE: 57 SEX: MMRN: [id number] ACCTNUM: [id number] SVC: [facility] LOCATION: [id number] PHYSICIAN: Abel Holder M.D.DATE OF PROCEDURE: 06/18/2017SURGEON: Abel Holder M.D.GREENHOUSE GROWER: Korin Lee REGULATORY SERVICES CONSULTANT.ANESTHESIA:PREOPERATI VE DIAGNOSIS(ES): L2-S1 spondylosis, stenosis, intractable lowback [...] Postanesthesia Care Unit in satisfactory condition.Abel Holder M.D.NeurosurgeryDD:[id number]: 06/18/2017 14:26:21T: 06/18/2017 23:12:00Job #: [id number] [facility] XR FLUOROSCOPYon 06-18-2017 XR FLUOROSCOPY * * [...] surgical instrument overlying the posterior lowest lumbar level.Interior Design Teacher: HAJA Transcribe Date/Time: Jun 19 2017 7:09ADictated by : JERRY WINSTON MDThis examination was interpreted and the report reviewed and electronically signed by: JERRY WINSTON MD on Jun 19 2017 7:09AM EST [facility] NURSING PROGon 06-11-2017 NURSING PROG HNO ID: [id number] thor: Anna (Rn) Kel, RNService: (none)Author Type: Registered NurseType: Nursing Progress NoteFiled: 06/11/2017 7:46 AMNote Text:PACC visit complete on 06/10/17. HANDP by Aron Meeks CNP. Cbc/diff, Cmp,Pt/Ptt, TANDS and conabo from 06/10/17 results reviewed in chart. EKG dated05/28/17 and stress test dated 06/08/17 reviewed in chart with scan date of06/10/17. Chart check complete. Anna Begum RN [facility] APTTon 06-10-2017 aPTT 26.2 s Normal 23.0-32.4 [facility] Comment on above: Result Comment: The [...] reagent. Performed By: #### P T, PTT ####[facility] [place] [place], [place] [phone] CBC and Differentialon 06-10 Abs Baso 0.05 k/uL Normal 0.00-0.10 [facility] Comment on above: Performed By: #### C BCDIF, CMP ####[facility] [place] [phone] Abs Ware 0.61 k/uL Normal 0.00-0.86 [facility] Comment on above: Performed By: #### C BCDIF, CMP ####[place] [address] [place] [phone] Abs Neut 4.65 k/uL Normal 1.45-7.50 [facility] Comment on above: Performed By: #### C BCDIF, CMP ####[place] [address] [place] [phone] Basophils/100 WBC Auto (Bld) 0.6 % Normal [facility] Comment on above: Performed By: #### C BCDIF, CMP ####[place] [address] [place] [phone] DTYPE Auto Diff Normal [facility] Comment on above: Performed By: #### C BCDIF, CMP ####[place] [phone] Eosinophils 0.08 10*3/uL Normal 0.00-0.45 [facility] Comment on above: Performed By: #### C BCDIF, CMP ####[place] [address] [place] [phone] Eosinophils/100 leukocytes 0.9 % Normal [facility] Comment on above: Performed By: #### C BCDIF, CMP ####[place] [address] [place] [phone] Erythrocyte distribution width Auto Ratio (RBC) 13.1 % Normal 11.5-15.0 [facility] Comment on above: Performed By: #### C BCDIF, CMP ####[place] [address] [place] [phone] Erythrocytes (RBC) 0.00 10*6/uL Normal [facility] Comment on above: Performed By: #### C BCDIF, CMP ####[place] [address] [place] [phone] Erythrocytes (RBC) 0.0 /100 WBC Normal 0 [facility] Comment on above: Performed By: #### C BCDIF, CMP ####[place] [address] [place] [phone] Erythrocytes (RBC) 5.13 10*6/uL Normal 4.20-6.00 [facility] Comment on above: Performed By: #### C BCDIF, CMP ####[place] [address] [place] [phone] Hematocrit (HCT) 46.4 % Normal 39.0-51.0 [facility] Comment on above: Performed By: #### C BCDIF, CMP ####[place] [address] [place] [phone] Hemoglobin mass conc (Bld) 15.8 g/dL Normal 13.0-17.0 [facility] Comment on above: Performed By: #### C BCDIF, CMP ####[place] [address] [place] [phone] Lymphocytes 3.47 10*3/uL Normal 1.00-4.00 [facility] Comment on above: Performed By: #### C BCDIF, CMP ####[place] [address] [place] [phone] Lymphocytes/100 leukocytes 39.2 % Normal [facility] Comment on above: Performed By: #### C BCDIF, CMP ####[place] [address] [place] [phone] MCH 30.8 pG Normal 26.0-34.0 [facility] Comment on above: Performed By: #### C BCDIF, CMP ####[place] [address] [place] [phone] MCHC mass conc (RBC) 34.1 g/dL Normal 30.5-36.0 [facility] Comment on above: Performed By: #### C BCDIF, CMP ####[place] [address]CNew [place], [place] [phone] MCV 90.4 fL Normal 80.0-100.0 [facility] Comment on above: Performed By: #### C BCDIF, CMP ####[place] [address], [place] [phone] Monocytes/100 leukocytes 6.9 % Normal [facility] Comment on above: Performed By: #### C BCDIF, CMP ####[place] [address], [place] [phone] Neutrophils/100 WBC Auto (Bld) 52.4 % Normal [facility] Comment on above: Performed By: #### C BCDIF, CMP ####[address] [phone] Platelet mean volume (PMV) 11.0 fL Normal 9.0-12.7 [facility] Comment on above: Performed By: #### C BCELEAZARF, CMP ####[place] [address] [place], [place] [phone] Platelets 224 10*3/uL Normal 150-400 [facility] Comment on above: Performed By: #### C BCDIF, CMP ####[place] [address] [place], [place] [phone] WBC (Leukocytes) 8.86 10*3/uL Normal 3.70-11.00 [facility] Comment on above: Performed By: #### C BCDIF, CMP ####[place] [address], [place] [phone] Comp Metabolic Panelon 06-10 Alanine aminotransferase (ALT) 47 U/L Normal 10-54 [facility] Comment on above: Performed By: #### C BCDIF, CMP ####[address] [place], [place] [phone] Albumin 4.9 g/dL Normal 3.9-4.9 [facility] Comment on above: Performed By: #### C BCDIF, CMP ####[place] [address] [place] [phone] Alkaline phosphatase (ALP) 64 U/L Normal 36-108 [facility] Comment on above: Performed By: #### C BCDIF, CMP ####[place] [address] [place] [phone] Anion gap 17 mmol/L Normal 9-18 [facility] Comment on above: Performed By: #### C BCDIF, CMP ####[place] [address] [place] [phone] Aspartate aminotransferase (AST) 44 U/L High 14-40 [facility] Comment on above: Performed By: #### C BCDIF, CMP ####[place] [address] [place] [phone] Bilirubin (total) 1.0 mg/dL Normal 0.2-1.3 [facility] Comment on above: Performed By: #### C BCDIF, CMP ####[place] [address] [place] [phone] Calcium 9.4 mg/dL Normal 8.5-10.2 [facility] Comment on above: Performed By: #### C BCDIF, CMP ####[place] [address] [place] [phone] Chloride 96 mmol/L Low 97-105 [facility] Comment on above: Performed By: #### C BCDIF, CMP ####[place] [address] [place] [phone] CO2 21 mmol/L Low 22-30 [facility] Comment on above: Performed By: #### C BCDIF, CMP ####[place] [address] [place], [place] [phone] Creatinine 1.02 mg/dL Normal 0.73-1.22 [facility] Comment on above: Performed By: #### C LUCIANO, CMP ####[facility] [place], [place] [phone] eGFR (non-black) mL/min/{1.73_m2} Normal [facility] Comment on above: Performed By: #### C LUCIANO, CMP ####[address] [phone] Result Comment: eGFR (Estimated GFR) Units of [...] Glucose mass conc 103 mg/dL High 74-99 [facility] Comment on above: Result Comment: The [place] [employer] (ADA) provides guidance for cutoff [...] Standards of Medical Care in Diabetes 2016, [place] [employer]. Diabetes Care. 2016.39(Suppl 1). Performed By: #### C LUCIANO, CMP ####[facility] [place], [place] [phone] Potassium molar conc 3.8 mmol/L Normal 3.7-5.1 [facility] Comment on above: Performed By: #### C BCDIF, CMP ####[facility] [address] AvSte[place], [place] [phone] Protein 7.4 g/dL Normal 6.3-8.0 [facility] Comment on above: Performed By: #### C BCDIF, CMP ####[facility] [address] AveCNew [place], [place] [phone] Sodium 134 mmol/L Low 136-144 [facility] Comment on above: Performed By: #### C BCDIF, CMP ####[facility] [address]CJ[place] [phone] Urea nitrogen 9 mg/dL Normal 9-24 [facility] Comment on above: Performed By: #### C BCDIF, CMP ####[facility] [address], [place] [phone] Confirm Blood Typeon 017 ABO/RH(D) Positive [facility] Comment on above: Performed By: #### C ONABO ####[facility] [address] [place] [phone] HISTORY PHYSICALon 7 HISTORY PHYSICAL HNO ID: [id number] thor: Debora (Antenna Engineer) KELLY MeeksService: (none)Author Type: Nurse PractitionerType: HANDPFiled: 06/10/2017 10:29 AMNote Text:HISTORY AND PHYSICAL EXAMINATIONSERVICE DATE: 06/10/2017SERVICE TIME: 9:30 AMPRIW. D. [facility]LOW [facility]: MORRIS Hoffmann FOR VISIT:Woody Ni [...] (FLONASE) 50 mcg/actuation nasal spray Use 1 [place] in the noseonce daily as needed. Yesfurosemide [...] Normalstress test earlier this month. Denies CP, [place], DVT, PE, lightheaded,dizziness, palpitations or CHF.GI: Positive [...] results within date range.No results found for: [id number] recent labsMost recent imaging in Care EverywhereMost recent stress test in Care EverywhereEKG requested from Dr. Quezada' officeAssessmentASSESSSaint Joseph's Hospital - Advised to continue same medication.Diabetes [...] pending LABS.CBC, CMP and EKG scanned into [employer].CONSULTS:Patient does not require consults for optimization at this time.The Following Tests/Procedures Have Been Initiated:Orders Placed This Encounter ACTIVATED PTT PROTHROMBIN TIME/PT TYPE + SCREEN,30 DAY CONABOPlanned Anesthetic: GeneralInstructions Given to Patient:Patient given verbal and written preop instructions and voicescomprehension and compliance.SIGNATURE: Debora Meeks CNP PATIENT NAME: Woody NiDATE: June 10, 2017 : 9:30 AM PAGER/CONTACT #: [facility] Protimeon 06-10-2017 INR Coag RelTime (Bld) 1.1 {INR} Normal 0.8-1.2 [facility] Comment on above: Result Comment: The PT/INR [...] 233S. Performed By: #### P T, PTT ####[facility] [place], [place] [phone] PT Sec 12.1 sec Normal 8.4-13.0 [facility] Comment on above: Performed By: #### P T, PTT ####[facility] [place], [place] [phone] Type and SCR (30D)on 017 ABO/RH(D) Positive [facility] Comment on above: Performed By: #### T SCR30 ####[facility] [address] [phone] Antibody Screen Negative [facility] Comment on above: Performed By: #### T SCR30 ####[facility] [address] [phone] HOSPon 05-27-2017 HOSP Patient:Kimberly Ni esMRN [...] 3.7HEMA* 46.4 % 06/10/2017 51.0 39.0Progress Notes ([facility]):Neisha Reyes MD 06/05/2017 11:03 AM Josesito [...] Reyes MDDATE: 06/05/17TIME: 10:57 AMPrevious Version Normal [facility] Vital Signs Date Time Vital Sign Value Performing Clinician Facility 07-10-2024 15:01-0400 Body temperature 98.2 [degF] Ashley Bell MD Work Phone: [facility] 07-10-2024 15:01-0400 Diastolic blood pressure 82 mm[Hg] Ashley Bell MD Work Phone: [facility] 07-10-2024 15:01-0400 Heart rate 106 /min Ashley Bell MD Work Phone: [facility] 07-10-2024 15:01-0400 Respiratory rate 16 /min Ashley Bell MD Work Phone: [facility] 07-10-2024 15:01-0400 SaO2% (BldA) [Mass fraction] 96 % Ashley Bell MD Work Phone: [facility] 07-10-2024 15:01-0400 Systolic blood pressure 135 mm[Hg] Ashley Bell MD Work Phone: [facility] 07-05-2024 00:28-0400 Body height 177.8 cm Ashley Bell MD Work Phone: [facility] 07-05-2024 00:28-0400 Body mass index (BMI) [Ratio] 23.53 kg/m2 Ashley Bell MD Work Phone: [facility] 07-05-2024 00:28-0400 Body weight 74.4 kg Ashley Bell MD Work Phone: [facility] 04-30-2024 07:29-0400 Body temperature 96.3 [degF] Kassandra Adkins MD Work Phone: [facility] 04-30-2024 07:29-0400 Diastolic blood pressure 74 mm[Hg] Kassandra Adkins MD Work Phone: [facility] 04-30-2024 07:29-0400 Heart rate 68 /min Kassandra Adkins MD Work Phone: [facility] 04-30-2024 07:29-0400 Respiratory rate 17 /min Kassandra Adkins MD Work Phone: [facility] 04-30-2024 07:29-0400 SaO2% (BldA) [Mass fraction] 99 % Kassandra Adkins MD Work Phone: [facility] 04-30-2024 07:29-0400 Systolic blood pressure 134 mm[Hg] Kassandra Adkins MD Work Phone: [facility] 04-30-2024 06:11-0400 Body mass index (BMI) [Ratio] 25.68 kg/m2 Kassandra Adkins MD Work Phone: [facility] 04-30-2024 06:11-0400 Body weight 81.19 kg Kassandra Adkins MD Work Phone: [facility] 04-22-2024 20:43-0400 Body height 177.8 cm Kassandra Adkins MD Work Phone: [facility] 04-04-2024 17:44-0400 Diastolic blood pressure 75 mm[Hg] Júnior Lo MD Work Phone: [facility] 04-04-2024 17:44-0400 Heart rate 96 /min Júnior Lo MD Work Phone: [facility] 04-04-2024 17:44-0400 Respiratory rate 17 /min Júnior Lo MD Work Phone: [facility] 04-04-2024 17:44-0400 Systolic blood pressure 140 mm[Hg] Júnior Lo MD Work Phone: [facility] 04-04-2024 16:45-0400 SaO2% (BldA) [Mass fraction] 100 % Júnior Lo MD Work Phone: [facility] 04-04-2024 15:28-0400 Body height 177.8 cm Júnior Lo MD Work Phone: [facility] 04-04-2024 15:28-0400 Body mass index (BMI) [Ratio] 22.96 kg/m2 Júnior Lo MD Work Phone: [facility] 04-04-2024 15:28-0400 Body temperature 97.3 [degF] Júnior Lo MD Work Phone: [email or web address] 04-04-2024 15:28-0400 Body weight 72.58 kg Júnior Lo MD Work Phone: [facility] 03-09-2024 10:31-0400 Diastolic blood pressure 92 mm[Hg] Nir Driscoll DO Work Phone: [facility] 03-09-2024 10:31-0400 Systolic blood pressure 166 mm[Hg] Nir Driscoll DO Work Phone: [facility] 03-09-2024 09:45-0400 Heart rate 103 /min Nir Driscoll DO Work Phone: [facility] 03-09-2024 09:45-0400 Respiratory rate 16 /min Nir Driscoll DO Work Phone: [facility] 03-09-2024 09:45-0400 SaO2% (BldA) [Mass fraction] 98 % Nir Driscoll DO Work Phone: [facility] 03-08-2024 22:34-0400 Body height 177.8 cm Nir Driscoll DO Work Phone: [facility] 03-08-2024 22:34-0400 Body mass index (BMI) [Ratio] 23.68 kg/m2 Nir Driscoll DO Work Phone: [facility] 03-08-2024 22:34-0400 Body weight 74.84 kg Nir Driscoll DO Work Phone: [facility] 03-08-2024 22:32-0400 Body temperature 97.9 [degF] Nir Driscoll DO Work Phone: [email or web address] 01-26-2024 07:47-0400 Body temperature 97.39 [degF] Daniel Ewing DO Work Phone: [email or web address] 01-26-2024 07:47-0400 Diastolic blood pressure 78 mm[Hg] Daniel Gombash DO Work Phone: [facility] 01-26-2024 07:47-0400 Heart rate 82 /min Daniel Gombash DO Work Phone: [facility] 01-26-2024 07:47-0400 Respiratory rate 18 /min Daniel Gombash DO Work Phone: [facility] 01-26-2024 07:47-0400 SaO2% (BldA) [Mass fraction] 97 % Daniel Gombash DO Work Phone: [facility] 01-26-2024 07:47-0400 Systolic blood pressure 138 mm[Hg] Daniel Gombash DO Work Phone: [facility] 01-26-2024 05:50-0400 Body mass index (BMI) [Ratio] 24.85 kg/m2 Daniel Gombash DO Work Phone: [facility] 01-26-2024 05:50-0400 Body weight 78.56 kg Daniel Gombash DO Work Phone: [facility] 01-19-2024 09:58-0400 Body height 177.8 cm Daniel Gombash DO Work Phone: [facility] 10-27-2023 11:46-0500 Body temperature 97.39 [degF] Khurram Bob MD Work Phone: [facility] 10-27-2023 11:46-0500 Diastolic blood pressure 93 mm[Hg] Khurram Bob MD Work Phone: [facility] 10-27-2023 11:46-0500 Heart rate 101 /min Khurram Bob MD Work Phone: [facility] 10-27-2023 11:46-0500 Respiratory rate 16 /min Khurram Bob MD Work Phone: [facility] 10-27-2023 11:46-0500 SaO2% (BldA) [Mass fraction] 97 % Khurram Bob MD Work Phone: [facility] 10-27-2023 11:46-0500 Systolic blood pressure 134 mm[Hg] Khurram Bob MD Work Phone: [email or web address] 10-22-2023 10:18-0500 Body height 177.8 cm Khurram Bob MD Work Phone: [email or web address] 10-21-2023 17:52-0500 Body mass index (BMI) [Ratio] 22.96 kg/m2 Khurram Bob MD Work Phone: [email or web address] 10-21-2023 17:52-0500 Body weight 72.58 kg Khurram Bob MD Work Phone: [facility] 07-05-2023 07:36-0400 Body temperature 98.29 [degF] Steve Whitley MD Work Phone: [facility] 07-05-2023 07:36-0400 Diastolic blood pressure 90 mm[Hg] Steve Whitley MD Work Phone: [facility] 07-05-2023 07:36-0400 Heart rate 89 /min Steve Whitley MD Work Phone: [facility] 07-05-2023 07:36-0400 Respiratory rate 17 /min Steve Whitley MD Work Phone: [facility] 07-05-2023 07:36-0400 SaO2% (BldA) [Mass fraction] 97 % Steve Whitley MD Work Phone: [facility] 07-05-2023 07:36-0400 Systolic blood pressure 147 mm[Hg] Steve Whitley MD Work Phone: [facility] 07-03-2023 11:31-0400 Body height 177.8 cm Steve Whitley MD Work Phone: [facility] 04-15-2023 07:46-0400 Body temperature 97.2 [degF] Richie Acosta MD Work Phone: [facility] 04-15-2023 07:46-0400 Diastolic blood pressure 88 mm[Hg] Richie Acosta MD Work Phone: [facility] 04-15-2023 07:46-0400 Heart rate 82 /min Richie Acosta MD Work Phone: [facility] 04-15-2023 07:46-0400 Respiratory rate 18 /min Richie Acosta MD Work Phone: [facility] 04-15-2023 07:46-0400 SaO2% (BldA) [Mass fraction] 100 % Richie Acosta MD Work Phone: [facility] 04-15-2023 07:46-0400 Systolic blood pressure 142 mm[Hg] Richie Acosta MD Work Phone: [facility] 04-11-2023 08:39-0400 Body height 177.8 cm Richie Acosta MD Work Phone: [facility] 04-10-2023 08:28-0400 Body mass index (BMI) [Ratio] 22.96 kg/m2 Richie Acosta MD Work Phone: [facility] 04-10-2023 08:28-0400 Body weight 72.58 kg Richie Acosta MD Work Phone: [facility] 04-07-2023 12:14-0400 Body temperature 98.2 [degF] José Luis Bermudez MD Work Phone: [facility] 04-07-2023 12:14-0400 Diastolic blood pressure 83 mm[Hg] José Luis Bermudez MD Work Phone: [facility] 04-07-2023 12:14-0400 Heart rate 100 /min José Luis Bermudez MD Work Phone: [facility] 04-07-2023 12:14-0400 Respiratory rate 18 /min José Luis Bermudez MD Work Phone: [facility] 04-07-2023 12:14-0400 SaO2% (BldA) [Mass fraction] 97 % José Luis Bermudez MD Work Phone: [facility] 04-07-2023 12:14-0400 Systolic blood pressure 127 mm[Hg] José Luis Bermudez MD Work Phone: [facility] 04-04-2023 14:36-0400 Body height 177.8 cm José Luis Bermudez MD Work Phone: [facility] 04-02-2023 15:52-0400 Body mass index (BMI) [Ratio] 22.96 kg/m2 José Luis Bermudez MD Work Phone: [facility] 04-02-2023 15:52-0400 Body weight 72.58 kg José Luis Bermudez MD Work Phone: [facility] 02-14-2023 07:42-0400 Body temperature 97.3 [degF] Rubén Nesheim DO Work Phone: [facility] 02-14-2023 07:42-0400 Diastolic blood pressure 75 mm[Hg] Rubén Nesheim DO Work Phone: [facility] 02-14-2023 07:42-0400 Heart rate 91 /min Rubén Nesheim DO Work Phone: [facility] 02-14-2023 07:42-0400 Respiratory rate 17 /min Rubén Nesheim DO Work Phone: [facility] 02-14-2023 07:42-0400 SaO2% (BldA) [Mass fraction] 99 % Rubén Nesheim DO Work Phone: [facility] 02-14-2023 07:42-0400 Systolic blood pressure 123 mm[Hg] Rubén Nesheim DO Work Phone: [facility] 02-13-2023 05:53-0400 Body mass index (BMI) [Ratio] 26.14 kg/m2 Rubén Nesheim DO Work Phone: [facility] 02-13-2023 05:53-0400 Body weight 82.64 kg Rubén Nesheim DO Work Phone: [facility] 02-11-2023 11:27-0400 Body height 177.8 cm Rubén Nesheim DO Work Phone: [facility] 01-28-2023 10:14-0400 Body height 177.8 cm Beryl Friedt PA-C Work Phone: [email or web address] 01-28-2023 10:14-0400 Body mass index (BMI) [Ratio] 25.4 kg/m2 Beryl Friedt PA-C Work Phone: [email or web address] 01-28-2023 10:14-0400 Body temperature 98.2 [degF] Beryl Friedt PA-C Work Phone: [email or web address] 01-28-2023 10:140400 Body weight 80.29 kg Beryl Friedt PA-C Work Phone: [email or web address] 01-28-2023 10:14-0400 Diastolic blood pressure 64 mm[Hg] Beryl Friedt PA-C Work Phone: [email or web address] 01-28-2023 10:14-0400 Heart rate 86 /min Beryl Friedt PA-C Work Phone: [email or web address] 01-28-2023 10:14-0400 Systolic blood pressure 130 mm[Hg] Beryl Friedt PA-C Work Phone: [email or web address] 01-09-2023 14:06-0400 Diastolic blood pressure 77 mm[Hg] Júnior Lo MD Work Phone: [facility] 01-09-2023 14:06-0400 Heart rate 79 /min Júnior Lo MD Work Phone: [facility] 01-09-2023 14:06-0400 Respiratory rate 17 /min Júnior Lo MD Work Phone: [facility] 01-09-2023 14:06-0400 SaO2% (BldA) [Mass fraction] 100 % Júnior Lo MD Work Phone: [email or web address] [facility] 01-09-2023 14:06-0400 Systolic blood pressure 126 mm[Hg] Júnior Lo MD Work Phone: [facility] 01-09-2023 11:34-0400 Body height 177.8 cm Júnior Lo MD Work Phone: [facility] 01-09-2023 11:34-0400 Body mass index (BMI) [Ratio] 26.54 kg/m2 Júnior Lo MD Work Phone: [facility] 01-09-2023 11:34-0400 Body temperature 98.01 [degF] Júnior Lo MD Work Phone: [facility] 01-09-2023 11:34-0400 Body weight 83.92 kg Júnior Lo MD Work Phone: [facility] 01-05-2023 11:15-0400 Body temperature 97.3 [degF] Ruperto Fang MD Work Phone: [facility] 01-05-2023 11:15-0400 Heart rate 92 /min Ruperto Fang MD Work Phone: [facility] 01-05-2023 11:15-0400 Respiratory rate 15 /min Ruperto Fang MD Work Phone: [facility] 01-05-2023 11:15-0400 SaO2% (BldA) [Mass fraction] 99 % Ruperto Fang MD Work Phone: [facility] 01-05-2023 11:00-0400 Diastolic blood pressure 74 mm[Hg] Ruperto Fang MD Work Phone: [facility] 01-05-2023 11:00-0400 Systolic blood pressure 145 mm[Hg] Ruperto Fang MD Work Phone: [facility] 01-05-2023 07:55-0400 Body height 177.8 cm Ruperto Fang MD Work Phone: [facility] 01-05-2023 07:55-0400 Body mass index (BMI) [Ratio] 26.26 kg/m2 Ruperto Fang MD Work Phone: [facility] 01-05-2023 07:55-0400 Body weight 83.01 kg Ruperto Fang MD Work Phone: [facility] 12-25-2022 07:39-0500 Body temperature 97.59 [degF] Rubén Nesheim DO Work Phone: [facility] 12-25-2022 07:39-0500 Diastolic blood pressure 66 mm[Hg] Rubén Nesheim DO Work Phone: [facility] 12-25-2022 07:39-0500 Heart rate 92 /min Rubén Nesheim DO Work Phone: [facility] 12-25-2022 07:39-0500 Respiratory rate 16 /min Rubén Nesheim DO Work Phone: [facility] 12-25-2022 07:39-0500 SaO2% (BldA) [Mass fraction] 96 % Rubén Nesheim DO Work Phone: [facility] 12-25-2022 07:39-0500 Systolic blood pressure 104 mm[Hg] Rubén Nesheim DO Work Phone: [facility] 12-23-2022 07:04-0500 Body height 177.8 cm Rubén Nesheim DO Work Phone: [facility] 12-23-2022 01:13-0500 Body mass index (BMI) [Ratio] 25.46 kg/m2 Rubén Nesheim DO Work Phone: [facility] 12-23-2022 01:13-0500 Body weight 80.5 kg Rubén Nesheim DO Work Phone: [facility] 11-07-2022 11:38-0500 Body height 177.8 cm Ruperto Fang MD Work Phone: [facility] 11-07-2022 11:38-0500 Body mass index (BMI) [Ratio] 26.4 kg/m2 Ruperto Fang MD Work Phone: [facility] 11-07-2022 11:38-0500 Body temperature 96.69 [degF] Ruperto Fang MD Work Phone: [facility] 11-07-2022 11:38-0500 Body weight 83.46 kg Ruperto Fang MD Work Phone: [facility] 11-07-2022 11:38-0500 Diastolic blood pressure 105 mm[Hg] Ruperto Fang MD Work Phone: [facility] 11-07-2022 11:38-0500 Heart rate 103 /min Ruperto Fang MD Work Phone: [facility] 11-07-2022 11:38-0500 Systolic blood pressure 163 mm[Hg] Ruperto Fang MD Work Phone: [facility] 06-25-2022 15:12-0400 Body height 177.8 cm Munira Kalka PA-C Work Phone: [facility] 06-25-2022 15:12-0400 Body weight 74.39 kg Munira Kalka PA-C Work Phone: [facility] 06-25-2022 15:12-0400 Diastolic blood pressure 88 mm[Hg] Munira Kalka PA-C Work Phone: [facility] 06-25-2022 15:12-0400 Heart rate 102 /min Munira Kalka PA-C Work Phone: [facility] 06-25-2022 15:12-0400 Systolic blood pressure 142 mm[Hg] Munira Kalka PA-C Work Phone: [facility] 06-06-2022 08:02-0400 Body temperature 97.11 [degF] Daniel Gombash DO Work Phone: [facility] 06-06-2022 08:02-0400 Diastolic blood pressure 81 mm[Hg] Daniel Gombash DO Work Phone: [facility] 06-06-2022 08:02-0400 Heart rate 96 /min Daniel Gombash DO Work Phone: [facility] 06-06-2022 08:02-0400 Respiratory rate 18 /min Daniel [...] 25.4 kg/m2 Hany Ybarra MD Work Phone: [facility] 05-15-2022 17:05-0400 Body temperature 98.49 [degF] Hany Ybarra MD Work Phone: [facility] 05-15-2022 17:05-0400 Body weight 80.29 kg Hany Ybarra MD Work Phone: [facility] 06-25-2020 00:27-0400 BP Diastolic 96 mm[Hg] [facility] [place] 06-25-2020 00:27-0400 BP Systolic 153 mm[Hg] [facility] [place] 06-25-2020 00:27-0400 Pulse (Heart Rate) 97 /min [facility] [place] 06-25-2020 00:27-0400 Pulse Oximetry 95 % [facility] [place] 06-25-2020 00:27-0400 Respiratory Rate 18 /min [facility] [place] 06-24-2020 22:04-0400 Body Temperature 97.3 [degF] [facility] [place] 06-24-2020 22:01-0400 BMI (Body Mass Index) 29.89 kg/m2 [facility] [place] 06-24-2020 22:01-0400 Body weight 94.48 kg [facility] [place] 06-24-2020 22:01-0400 Height 177.8 cm [facility] [place] Encounters Encounter Date Encounter Type Care Provider Facility Start: 10-03-2024 End: 10-08-2024 [facility] Start: 10-03-2024 End: 10-08-2024 Patient encounter procedure Savanna Montgomery Clinical Communication Start: 07-22-2024 End: 08-01-2024 Evaluation and management of inpatient [facility] Start: 07-10-2024 End: 07-21-2024 Evaluation and management of inpatient QUYNH MCKEON [facility] Start: 07-06-2024 End: 07-06-2024 Telephone encounter Verónica Pierce PA-C Work Phone: [facility] Gastroenterology - [place] Comment on above: Care Coordination Start: 07-04-2024 End: 07-04-2024 Subsequent hospital visit by physician [facility] Exam Room [address] [facility] [address] Comment on above: Arrived Start: 07-04-2024 End: 07-04-2024 Emergency department patient visit ASHLEY BELL [facility] Start: 07-04-2024 End: 07-10-2024 Evaluation and management of inpatient Ashley Bell MD Work Phone: [facility] Trauma Neuro Progressive Care Unit PCU 3W Comment on above: Metabolic acidosis, increased anion gap (Primary Dx); Ketosis (HCC); Alcohol use; Hypokalemia; Hypomagnesemia Start: 06-06-2024 ambulatory Jain Alvarezsaros Facility :[facility] Start: 05-30-2024 ambulatory [facility] Facility :[facility] Start: 05-27-2024 ambulatory Kevin SALES Facility:[facility] Start: 05-23-2024 End: 08-21-2024 Refill Carmen Jeronimo MD Work Phone: [facility] Medical Surgical Unit MSU 4S Start: 05-21-2024 [facility] Start: 05-21-2024 End: 05-26-2024 Evaluation and management of inpatient Ruddy Jopperi Facility:[facility] Start: 05-02-2024 End: 05-03-2024 Emergency department patient visit Jani Quezada Facility:[facility] Start: 04-22-2024 End: 04-30-2024 Evaluation and management of inpatient Kassandra Adkins MD Work Phone: [facility] Medical Surgical Unit MSU 4S Comment on above: Alcohol use disorder (Primary Dx) Start: 04-08-2024 End: 04-09-2024 Emergency department patient visit YUE DUQUE [facility] Start: 04-05-2024 ambulatory Jani Quezada Facility :[facility] Start: 04-05-2024 End: 04-08-2024 Evaluation and management of inpatient Jani Alvarezsamarti Facility:[facility] Start: 04-04-2024 End: 04-04-2024 Subsequent hospital visit by physician [facility] Exam Room [address] [facility] [address] Comment on above: Arrived Start: 04-04-2024 End: 04-04-2024 Emergency department patient visit Júnior Lo MD Work Phone: [facility] ED Comment on above: Syncope, unspecified syncope type (Primary Dx); Elevated lactic acid level Start: 03-08-2024 End: 03-09-2024 Evaluation and management of inpatient Nir Driscoll DO Work Phone: [facility] ED Comment on above: Hyponatremia (Primar y Dx); Alcoholic intoxication without complication (CMS/HCC) (HCC); Alcohol withdrawal syndrome without complication (HCC); High anion gap metabolic acidosis Start: 02-26-2024 ambulatory José Luis Alarcon RN [facility] Start: 02-26-2024 Patient encounter procedure José Luis Alarcon RN [facility] Communication Start: 01-15-2024 End: 01-26-2024 Evaluation and management of inpatient Daniel Ewing DO Work Phone: [facility] Observation Unit 5E Comment on above: Alcohol withdrawal s yndrome without complication (HCC) (Primary Dx); COVID-19; Leg edema; Other pancytopenia (CMS/HCC) (HCC); Alcoholic cirrhosis of liver without ascites (CMS/HCC) (HCC); Mild recurrent major depression (HCC) Start: 12-25-2023 End: 12-26-2023 ambulatory MUNIRA STALEY Facility[facility] Start: 12-24-2023 End: 12-24-2023 ambulatory JANI QUEZADA Facility:[facility] Start: 12-17-2023 End: 12-17-2023 Subsequent hospital visit by physician Carmen Jeronimo MD Work Phone: [facility] Addiction IOP Comment on above: Arrived Start: 12-15-2023 End: 12-15-2023 Subsequent hospital visit by physician Carmen Jeronimo MD Work Phone: [facility] Addiction IOP Comment on above: Arrived Start: 12-07-2023 End: 12-07-2023 Subsequent hospital visit by physician Carmen Jeronimo MD Work Phone: [facility] Addiction IOP Comment on above: Severe alcohol use d isorder (HCC) Start: 10-20-2023 End: 10-27-2023 Evaluation and management of inpatient Khurram Bob MD Work Phone: [facility] Medical Surgical Unit MSU 4S Comment on above: 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 (Primary Dx); Alcohol use disorder, severe, dependence (HCC); Nausea and vomiting, unspecified vomiting type; Chronic pain syndrome Start: 06-30-2023 End: 07-05-2023 Evaluation and management of inpatient Steve Whitley MD Work Phone: [facility] 2E TELEMETRY Comment on above: Hyponatremia (Primar y Dx) Start: 05-26-2023 ambulatory Corinne Romeo RN [facility] linical Communication Start: 05-26-2023 Patient encounter procedure Corinne Romeo RN [facility] Clinical Communication Start: 04-09-2023 End: 04-15-2023 Evaluation and management of inpatient Richie Acosta MD Work Phone: [facility] 2E TELEMETRY Comment on above: Hyponatremia (Primar y Dx); DENNYS (acute kidney injury) (CMS/HCC) (HCC) Start: 04-05-2023 Telephone encounter Anna Abbott CNP Work Phone: [facility] Medical [facility] Gastroenterology Comment on above: Hospital Follow-up Start: 04-02-2023 End: 04-02-2023 Subsequent hospital visit by physician [facility] Exam Room 2 [facility] Comment on above: Arrived Start: 04-02-2023 End: 04-07-2023 Evaluation and management of inpatient José Luis Bermudez MD Work Phone: [facility] 4E DETOX Comment on above: Alcohol withdrawal s yndrome without complication (HCC) (Primary Dx); Alcohol use disorder Start: 02-16-2023 Telephone encounter Casandra Salinas RN [facility] Clinical Communication Comment on above: Hospital Follow-up Start: 02-10-2023 End: 02-14-2023 Evaluation and management of inpatient Rubén Hoang DO Work Phone: [facility] 2E TELEMETRY Comment on above: Hyponatremia (Primar y Dx); Alcohol dependence with unspecified alcohol-induced disorder (HCC); Chronic pain syndrome; Myalgia; Acute kidney injury (CMS/HCC) (HCC) Start: 01-28-2023 End: 01-28-2023 Postop follow up visit related to original px Beryl Holder PA-C Work Phone: [facility] Comment on above: Encounter for postop erative care (Primary Dx); Gallbladder sludge; 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) Start: 01-12-2023 Telephone encounter Ruperto castelan MD Work Phone: [facility] Comment on above: Advice Only Start: 01-09-2023 End: 01-09-2023 Emergency department patient visit Júnior Lo MD Work Phone: [facility] ED Comment on above: Ascites due to alcoh olic cirrhosis (CMS/HCC) (HCC) (Primary Dx) Start: 01-05-2023 End: 01-05-2023 Subsequent hospital visit by physician Ruperto Fang MD Work Phone: [facility] MAIN OR Comment on above: RUQ pain (Primary Dx ); Right upper quadrant pain; Other specified diseases of gallbladder Start: 12-30-2022 Telephone encounter Beryl chandler PA-C Work Phone: [facility] Start: 12-27-2022 Telephone encounter Leah Kimble RN [facility] Clinical Communication Comment on above: Hospital Follow-up Start: 12-22-2022 End: 12-22-2022 Subsequent hospital visit by physician [facility] Exam Room [address] [facility] [address] Comment on above: Arrived Canceled (Patient) Start: 12-22-2022 End: 12-25-2022 Evaluation and management of inpatient Rubén Hoang DO Work Phone: [facility] 4S TELEMETRY Comment on above: DENNYS (acute kidney in jury) (CMS/HCC) (HCC) (Primary Dx); Acute kidney injury (CMS/HCC) (HCC) Start: 12-11-2022 Orders Only Beryl Holder PA-C Work Phone: [facility] Comment on above: Preop examination (P rimary Dx) Start: 12-11-2022 Preprocedural examination done Beryl Gallo EDWARDS Work Phone: [facility] Start: 11-20-2022 Telephone encounter [...] 07-11-2022 Telephone encounter [facility]C [facility] Comment on [facility]: Results Start: 07-08-2022 Telephone encounter Munira SHAH-C Work Phone: [facility] Comment on above: Results Start: 07-08-2022 End: 07-08-2022 Subsequent hospital visit by physician [facility] Work Phone: Radiology Comment on above: History of hepatitis C [Z86.19] Start: 06-25-2022 End: 06-25-2022 Patient encounter procedure Munira Staley PA-C Work Phone: [facility] Comment on above: Abnormal CT scan, st [facility] (Primary Dx); History of esophageal varices; Diarrhea, unspecified type; History of hepatitis C; Abnormal results of liver function studies Start: 06-04-2022 End: 06-06-2022 Evaluation and management of inpatient Ashlyn Atkinson [facility] Start: 06-03-2022 End: 06-06-2022 Evaluation and management of inpatient Daniel Faulknerjonathanmicheal Work Phone: [facility] 2E TELEMETRY Comment on above: Syncope and collapse (Primary Dx); Hyponatremia; Acute alcoholic intoxication without complication (HCC); Spinal stenosis of lumbar region, unspecified whether neurogenic claudication present Start: 05-15-2022 End: 05-15-2022 Emergency department patient visit Jani Quezada [facility] Start: 05-15-2022 End: 05-15-2022 Emergency department patient visit Hany Ybarra MD Work Phone: [facility] Comment on above: Acute exacerbation o f chronic low back pain (Primary Dx); Non-intractable vomiting with nausea, unspecified vomiting type; Dehydration Start: 06-24-2020 End: 06-25-2020 Emergency department patient visit Jani Quezada [facility] ED Comment on above: Right flank pain (Pr imary Dx); Penile discharge; Malaise and fatigue; Nausea Start: 07-19-2019 End: 07-19-2019 Subsequent hospital visit by physician Daniel London Work Phone: [facility] Comment on above: Arrived Start: 07-16-2019 End: 07-16-2019 Subsequent hospital visit by physician Daniel London Work Phone: [facility] Laboratory Start: 06-18-2017 End: 06-20-2017 Evaluation and management of inpatient [facility] Start: 06-10-2017 End: 06-10-2017 Ambulatory [facility] Procedures Date Procedure Procedure Detail Performing Clinician Start: 07-11-2024 Lipid 1996 panel - S tomas or Plasma Verónica Pierce PA-C Work Phone: Start: 07-11-2024 Thyrotropin [Units/v olume] in Serum or Plasma Verónica Pierce PA-C Work Phone: Start: 07-10-2024 SARS-CoV-2 (COVID-19 ) Ag [Presence] in Respiratory specimen by Rapid immunoassay Emiliano Church [employer] Work Phone: Start: 07-10-2024 Basic metabolic pane [...] Work Phone: Start: 07-04-2024 Assay of lactate Ashley Bell MD Work Phone: Start: 07-04-2024 Ct [...] Phone: Start: 10-22-2023 Comprehensive metabo lic panel Kacie M Esterle [...] dip stick/tabl et rgnt auto w/o microscopy hKurram Bob MD Work Phone: Start: 10-20-2023 Basic metabolic [...] metabolic pane l calcium total Ophelia Ramos [employer] ARCHITECT - [employer]ORY SERVICES CONSULTANT Work Phone: Start: 07-04-2023 Basic metabolic pane l calcium total Ophelia Ramos [employer] ARCHITECT - REGULATORY SERVICES CONSULTANT Work Phone: Start: 07-03-2023 Basic metabolic pane l calcium total Ophelia Ramos [facility] Work Phone: Start: 07-03-2023 Basic metabolic pane l calcium total Ophelia Ramos [facility] Work Phone: Start: 07-03-2023 Basic metabolic pane l calcium total Ophelia Ramos [facility] Work Phone: Start: 07-02-2023 End: 07-03-2023 Basic metabolic panel calcium total Ophelia Ramos [facility] Work Phone: Start: 07-02-2023 Basic metabolic pane l calcium total Kacie Cabral Esterle Work Phone: Start: 07-02-2023 Comprehensive metabo lic panel Ophelia Ramos [facility] Work Phone: Start: 07-01-2023 Basic metabolic pane l calcium total Ophelia Ramos [facility] Work Phone: Start: 07-01-2023 Basic metabolic pane l calcium total Ophelia Ramos [facility] Work Phone: Start: 07-01-2023 Basic metabolic pane l calcium total Ophelia Ramos [facility] Work Phone: Start: 07-01-2023 Comprehensive metabo lic [...] Assay of osmolality urine Ophelia Sanchez [employer] ARCHITECT - REG[employer]ATORY SERVICES CONSULTANT Work Phone: Start: 04-10-2023 Urnls dip stick/tabl et rgnt auto w/o microscopy Ophelia Sanchez [employer] ARCHITECT - REGULATORY SERVICES CONSULTANT Work Phone: Start: 04-10-2023 Comprehensive metabo lic [...] Maxwell Hinson MD Work Phone: Start: 04-06-2023 Glucose quantitative [...] Us abdominal real ti me w/image documentation JoséL uis Bermudez MD Work Phone: Start: 04-02-2023 Comprehensive metabo lic panel José Luis Bermudez MD Work Phone: Start: 04-02-2023 Drug test def 1-7 classes José Luis Bermudez MD Work Phone: Start: 04-02-2023 End: 04-02-2023 Thyrotropin [Units/volume] in Serum or Plasma Inder Morteza Stein DO Work Phone: Start: 02-14-2023 Basic metabolic pane l calcium total Ophelia Ramos [employer] ARCHITECT - REGULATORY SERVICES CONSULTANT Work Phone: Start: 02-13-2023 Sodium serum plasma or whole blood Ophelia Ramos [employer] ARCHITECT - REGULATORY SERVICES CONSULTANT Work Phone: Start: 02-13-2023 Sodium serum plasma or whole blood Ophelia Ramos [employer] ARCHITECT - REGULATORY SERVICES CONSULTANT Work Phone: Start: 02-12-2023 Basic metabolic pane l calcium total Kacie Benz DO Work Phone: Start: 02-12-2023 Sodium serum plasma or whole blood Ophelia Ramos [employer] ARCHITECT - REGULATORY SERVICES CONSULTANT Work Phone: Start: 02-12-2023 Sodium serum plasma or whole blood Ophelia Ramos [employer] ARCHITECT - REGULATORY SERVICES CONSULTANT Work Phone: Start: 02-12-2023 Us abdominal real ti me w/image documentation Ana Callaway MD Work Phone: Start: 02-12-2023 Comprehensive metabo lic panel Kacie Benz DO Work Phone: Start: 02-11-2023 Sodium serum plasma or whole blood Ophelia Ramos [employer] ARCHITECT [employer] Work Phone: Start: 02-11-2023 End: 02-11-2023 Sodium serum plasma or whole blood Ophelia Ramos [employer] ARCH[employer] Work Phone: Start: 02-11-2023 Assay of osmolality urine Ophelia Ramos [employer] ARCH[employer] Work Phone: Start: 02-11-2023 Urnls dip stick/tabl et rgnt auto w/o microscopy Ophelia Ramos [employer] ARCHITECT [employer] Work Phone: Start: 02-11-2023 Iadna-dna/rna gi pth [...] Phone: Start: 12-23-2022 Chloride urine Ophelia Okeefe [employer] ARCHITECT - REGULATORY SERVICES CONSULTANT Work Phone: Start: 12-23-2022 Urnls dip stick/tabl et rgnt auto w/o microscopy Ophelia Maldonado [employer] ARCHITECT - REGULATORY SERVICES CONSULTANT Work Phone: Start: 12-23-2022 Glucose quantitative blood [...] ncd id imfluor stain ea Anna Stewart [employer] ARCHITECT - REGULATORY SERVICES CONSULTANT Work Phone: Start: 06-05-2022 Sodium serum plasma [...] End: 06-04-2022 Cyanocobalamin vitamin b-12 Jonny Cerdal [employer] ARCHITECT - REGULATORY SERVICES CONSULTANT Work Phone: Start: 06-04-2022 Hepatic function panel Jonny Raffel [employer] ARCHITECT - REGULATORY SERVICES CONSULTANT Work Phone: Start: 06-04-2022 Manual Differential panel - Blood Unknown Provider Result Start: 06-04-2022 ADD ON LAB TEST Maldonado Stewart [employer] ARCHITECT - REGULATORY SERVICES CONSULTANT Work Phone: Start: 06-04-2022 Hemoglobin glycosylated a1c [...] ribs unilatera l 2 views Daniel Lawson [employer] Work Phone: Start: 07-16-2019 Assay of urea nitrog en quantitative Daniel London Work Phone: Start: 07-16-2019 Creatinine blood Daniel Lawson [employer] Work Phone: Plan of Treatment Date Care Activity Detail Author Start: 08-26-2028 DTaP/Tdap/Td vaccine (2 - Td or Tdap) DTaP/Tdap/Td vaccine (2 - Td or Tdap) [facility] Start: 08-26-2028 DTaP/Tdap/Td Vaccines (2 - Td or Tdap) DTaP/Tdap/Td Vaccines (2 - Td or Tdap) [facility] Start: 07-29-2025 Diabetes: Estimated Glomerular Filtration Rate for Kidney Health Diabetes: Estimated Glomerular Filtration Rate for Kidney Health [facility] Start: 07-26-2025 Diabetes: Estimated Glomerular Filtration Rate for [facility]ney Health Diabetes: Estimated Glomerular Filtration Rate for Kidney Health [facility] Start: 07-22-2025 Hemoglobin A1c measurement Diabetes: Hemoglobin A1C [facility] Start: 07-16-2025 Diabetes: Estimated Glomerular Filtration Rate for [facility] Health Diabetes: Estimated Glomerular Filtration Rate for Kid[facility] Health [facility] Start: 07-12-2025 Diabetes: Estimated Glomerular Filtration Rate for [facility] Diabetes: Estimated Glomerular Filtration Rate for Kidney Health [facility] Start: 07-11-2025 Lipid panel Lipid Panel [facility] Start: 07-11-2025 Thyroid stimulating hormone measurement TSH Level [facility] Start: 07-10-2025 Diabetes: Estimated Glomerular Filtration Rate for [facility] Diabetes: Estimated Glomerular Filtration Rate for [facility] Health [facility] Start: 07-07-2025 Diabetes: Estimated Glomerular Filtration Rate for [facility] Health Diabetes: Estimated Glomerular Filtration Rate for [facility] Health [facility] Start: 07-06-2025 Diabetes: Estimated Glomerular Filtration Rate for Kidney Health Diabetes: Estimated Glomerular Filtration Rate for Kidney Health [facility] Start: 07-05-2025 Diabetes: Estimated Glomerular Filtration Rate for Kidney Health Diabetes: Estimated Glomerular Filtration Rate for Kidney Health [facility] Start: 04-27-2025 Diabetes: Estimated Glomerular Filtration Rate for Kidney Health Diabetes: Estimated Glomerular Filtration Rate for Kidney Health [facility] Start: 04-23-2025 Hemoglobin A1c measurement Diabetes: Hemoglobin A1C [facility] Start: 04-23-2025 Thyroid stimulating hormone measurement TSH Level [facility] Start: 04-04-2025 Diabetes: Estimated Glomerular Filtration Rate for Kidney Health Diabetes: Estimated Glomerular Filtration Rate for Kidney Health [facility] Start: 03-08-2025 Diabetes: Estimated Glomerular Filtration Rate for Kidney Health Diabetes: Estimated Glomerular Filtration Rate for Kidney Health [facility] Start: 01-25-2025 Diabetes: Estimated Glomerular Filtration Rate for Kidney Health Diabetes: Estimated Glomerular Filtration Rate for Kidney Health [facility] Start: 01-21-2025 Depression Monitoring Depression Monitoring [facility] Start: 01-18-2025 Thyroid stimulating hormone measurement TSH Level [facility] Start: 01-07-2025 Depression Monitoring Depression Monitoring [facility] Start: 01-02-2025 Depression Monitoring Depression Monitoring [facility] Start: 10-26-2024 Depression Monitoring Depression Monitoring [facility] Start: 09-13-2024 End: 09-13-2024 Patient encounter procedure 09/13/2024 3:00 PM EST Office Visit [facility] - [place] [address] [phone] Ana Armas PA-C [address] [id number] [facility] [place] Start: 07-23-2024 Depression Monitoring Depression Monitoring [facility] Start: 07-23-2024 Depresssion Monitoring Depresssion Monitoring [facility] Start: 06-19-2024 COVID-19 Vaccine ( season) COVID-19 Vaccine () [facility] Start: 06-19-2024 COVID-19 Vaccine () COVID-19 Vaccine () [facility] Start: 06-19-2024 Influenza vaccination [facility] Start: 06-06-2024 Depresssion Monitoring Depresssion Monitoring [facility] Start: 04-10-2024 Thyroid stimulating hormone measurement TSH Level [facility] Start: 04-02-2024 Hemoglobin A1c measurement Diabetes: Hemoglobin A1C [facility] Start: 04-02-2024 Thyroid stimulating hormone measurement TSH Level [facility] Start: 02-12-2024 Thyroid stimulating hormone measurement TSH Level [facility] Start: 01-21-2024 End: 01-21-2024 Patient encounter procedure 01/21/2024 5:30 PM EDT Appointment [facility] [address] [place] [address] Carmen Jeronimo MD [address] [place] [phone] [facility] Start: 01-19-2024 End: 01-19-2024 Patient encounter procedure 01/19/2024 5:30 PM EDT Appointment [facility] [address] [place] [address] Carmen Jeronimo MD [address] [place] [phone] [facility] Start: 01-18-2024 End: 01-18-2024 Patient encounter procedure 01/18/2024 5:30 PM EDT Appointment [facility] [address] [place] [address] Carmen Jeronimo MD [address] [place] [phone] [facility] Start: 01-14-2024 End: 01-14-2024 Patient encounter procedure 01/14/2024 5:30 PM EDT Appointment [facility] [address] [place] [phone] Carmen Jeronimo MD [address] [place] [address] [address] [place] [phone] [facility] Start: 01-12-2024 End: 01-12-2024 Patient encounter procedure 01/12/2024 5:30 PM EDT Appointment [facility] [address] [place] [address] Carmen Jeronimo MD [address] [place] [phone] [facility] Start: 01-11-2024 End: 01-11-2024 Patient encounter procedure 01/11/2024 5:30 PM EDT Appointment [facility] [address] [place] [phone] Carmen Jeronimo MD [address] [place] [phone] [facility] Start: 01-07-2024 End: 01-07-2024 Patient encounter procedure 01/07/2024 5:30 PM EDT Appointment [facility] [address] [place] [phone] Carmen Jeronimo MD [address] [place] [phone] [facility] Start: 01-05-2024 End: 01-05-2024 Patient encounter procedure 01/05/2024 5:30 PM EDT Appointment [facility] [address] [place] [address] Carmen Jeronimo MD [address] [place] [phone] [facility] Start: 01-04-2024 End: 01-04-2024 Patient encounter procedure 01/04/2024 5:30 PM EDT Appointment [facility] [address] [place] [address] Carmen Jeronimo MD [address] [place] [phone] [facility] Start: 12-31-2023 End: 12-31-2023 Patient encounter procedure 12/31/2023 5:30 PM EDT Appointment [facility] [address] [place] [address] Carmen Jeronimo MD [address] [place] [phone] [facility] Start: 12-29-2023 End: 12-29-2023 Patient encounter procedure 12/29/2023 5:30 PM EDT Appointment [facility] [address] [place] [address], [place] [address] Carmen Jeronimo MD [address] [place] [phone] [facility] Start: 12-28-2023 End: 12-28-2023 Patient encounter procedure 12/28/2023 5:30 PM EDT Appointment [facility] [address] [place] [address] Carmen Jeronimo MD [address] [place] [phone] [facility] Start: 12-24-2023 End: 12-24-2023 Patient encounter procedure 12/24/2023 5:30 PM EST Appointment [facility] [address] [place] [address] Carmen Jeronimo MD [address] [place] [address] [address] [place] [phone] [facility] Start: 12-22-2023 End: 12-22-2023 Patient encounter procedure 12/22/2023 5:30 PM EST Appointment [facility] [address] [place] [address] Carmen Jeronimo MD [address] [place] [address] [address] [place] [phone] [facility] Start: 12-21-2023 End: 12-21-2023 Patient encounter procedure 12/21/2023 5:30 PM EST Appointment [facility] [address] [place] [address] Carmen Jeronimo MD [address] [place] [address] [address] [place] [address] [facility] Start: 12-17-2023 End: 12-17-2023 Patient encounter procedure [facility] Start: 12-15-2023 End: 12-15-2023 Patient encounter procedure [facility] Start: 10-19-2023 Medicare Advantage Annual Wellness Visit Medicare Advantage Annual Wellness Visit [facility] Start: 10-03-2023 Depresssion Monitoring Depresssion Monitoring [facility] Start: 07-03-2023 Hemoglobin A1c measurement Diabetes: Hemoglobin A1C [facility] Start: 06-19-2023 COVID-19 Vaccine ( season) COVID-19 Vaccine () [facility] Start: 06-19-2023 Influenza vaccination [facility] Start: 06-06-2023 Screening for malignant neoplasm of colon [facility] Start: 06-04-2023 Hemoglobin A1c measurement A1C test (Diabetic or Prediabetic) [facility] Start: 06-04-2023 Thyroid stimulating hormone measurement TSH Level [email or web address] Start: 04-27-2023 End: 04-15-2024 Basic metabolic 1998 panel - Serum or Plasma Basic metabolic panel Lab Routine Hyponatremia Expected: 04/27/2023 (Approximate), Expires: 04/15/2024 [facility] Work Phone: Comment on above: Expected: 04/27/2023 (Approximate), Expi res: 04/15/2024 Start: 03-31-2023 Hemoglobin A1c measurement Diabetes: Hemoglobin A1C [facility] Start: 02-15-2023 End: 02-15-2024 Basic metabolic 1998 panel - Serum or Plasma Basic metabolic panel Lab Routine Hyponatremia Acute kidney injury (CMS/HCC) (HCC) Expected: 02/15/2023 (Approximate), Expires: 02/15/2024 [facility] Work Phone: Comment on above: Expected: 02/15/2023 (Approximate), Expi res: 02/15/2024 Start: 01-21-2023 End: 01-21-2023 Patient encounter procedure 01/21/2023 Office Visit General Surgery [facility] Start: 01-05-2023 End: 01-05-2023 Admission to same day surgery center 01/05/2023 Surgery Procedural Ruperto Fang MD [address] [place] [address] [address] [place] [address] LAPAROSCOPIC CHOLECYSTECTOMY, POSSIBLE OPEN [57169 (CPT )] [facility] Comment on above: LAPAROSCOPIC CHOLECYSTECTOMY, POSSIBLE O PEN [46614 (CPT )] Start: 01-05-2023 End: 01-05-2023 Anesthesia consultation 01/05/2023 Anesthesia Event Procedural Erika Lazar, [employer]UT[employer] ARCHITECT - REGULATORY SERVICES CONSULTANT [address] [place] [address] [facility] Start: 01-05-2023 End: 01-05-2023 Laparoscopy surg cholecystectomy LAPAROSCOPIC CHOLECYSTECTOMY Right upper quadrant pain Other specified diseases of gallbladder 01/05/2023 9:30 AM EDT [facility] Start: 01-05-2023 Subsequent hospital visit by physician 01/05/2023 Hospital Encounter Procedural Ruperto Fang MD [address] [place] [address] [address] [place] [address] [facility] Start: 12-29-2022 End: 12-29-2022 Admission to establishment [facility] Pre-Admit Testing Start: 12-11-2022 End: 12-11-2023 Hepatic function 2000 panel - Serum or Plasma Hepatic function panel Lab Routine Preop examination Expected: 12/11/2022 (Approximate), Expires: 12/11/2023 [facility] Work Phone: Comment on above: Expected: 12/11/2022 (Approximate), Expi res: 12/11/2023 Start: 09-04-2022 Hemoglobin A1c measurement Diabetes: Hemoglobin A1C [facility] Start: 06-25-2022 End: 08-25-2022 CBC W Auto Differential panel - Blood CBC + DIFF Lab Routine Abnormal CT scan, stomach Expected: 06/25/2022, Expires: 08/25/2022 [facility] Work Phone: Comment on above: Expected: 06/25/2022, Expires: 2 Start: 06-25-2022 End: 08-25-2022 Comprehensive metabolic 2000 panel - Serum or Plasma COMP METABOLIC PANEL Lab Routine Abnormal CT scan, stomach Expected: 06/25/2022, Expires: 08/25/2022 [facility] Work Phone: Comment on above: Expected: 06/25/2022, Expires: 2 Start: 06-25-2022 End: 08-25-2022 HEPATITIS A ANTIBODY, IGG HEPATITIS A ANTIBODY, IGG Lab Routine History of hepatitis C Expected: 06/25/2022, Expires: 08/25/2022 [facility] Work Phone: Comment on above: Expected: 06/25/2022, Expires: 2 Start: 06-25-2022 End: 08-25-2022 Hepatitis B virus core Ab [Presence] in Serum HEP B CORE AB TOTAL Lab Routine History of hepatitis C Expected: 06/25/2022, Expires: 08/25/2022 [facility] Work Phone: Comment on above: Expected: 06/25/2022, Expires: 2 Start: 06-25-2022 End: 08-25-2022 Hepatitis B virus surface Ab [Presence] in Serum by Immunoassay HEP B SURF AG SCRN Lab Routine History of hepatitis C Expected: 06/25/2022, Expires: 08/25/2022 [facility] Work Phone: Comment on above: Expected: 06/25/2022, Expires: 2 Start: 06-25-2022 End: 08-25-2022 Hepatitis B virus surface Ab [Units/volume] in Serum HEP B SURF AB QUANT Lab Routine History of hepatitis C Expected: 06/25/2022, Expires: 08/25/2022 [facility] Work Phone: Comment on above: Expected: 06/25/2022, Expires: 2 Start: 06-25-2022 End: 08-25-2022 Hepatitis C virus RNA [Units/volume] (viral load) in Serum or Plasma by SHANE with probe detection HCV QUANT RNA BY PCR Lab Routine History of hepatitis C Expected: 06/25/2022, Expires: 08/25/2022 [facility] Work Phone: Comment on above: Expected: 06/25/2022, Expires: 2 Start: 06-25-2022 End: 08-25-2022 Lipase [Enzymatic activity/volume] in Serum or Plasma LIPASE BLD Lab Routine Abnormal CT scan, stomach Expected: 06/25/2022, Expires: 08/25/2022 [facility] Work Phone: Comment on above: Expected: 06/25/2022, Expires: 2 Start: 06-25-2022 End: 08-25-2022 PT panel - Platelet poor plasma by Coagulation assay PROTHROMBIN TIME/PT Lab Routine History of hepatitis C Abnormal results of liver function studies Expected: 06/25/2022, Expires: 08/25/2022 [facility] Work Phone: Comment on above: Expected: 06/25/2022, Expires: 2 Start: 06-19-2022 Influenza vaccination [facility] Start: 07-16-2020 Creatinine measurement Creatinine monitoring [place], [place] Start: 07-16-2020 Creatinine monitoring Creatinine monitoring [place], [place] Start: 06-19-2020 Influenza vaccination Flu vaccine (#1) [place], [place] Start: 2020 HEPATITIS B (1 of 3 - Risk 3-dose series) HEPATITIS B (1 of 3 - Risk 3-dose series) [facility] Start: 2020 Hepatitis B Vaccines (1 of 3 - Risk 3-dose series) Hepatitis B Vaccines (1 of 3 - Risk 3-dose series) [facility] Start: 2020 RSV Immunization aged 60 or older (1 - 1-dose 60+ series) RSV Immunization aged 60 or older (1 - 1-dose 60+ series) [facility] Start: 2020 RSV Immunization for Adults (1 - Risk 60-74 years 1-dose series) RSV Immunization for Adults (1 - Risk 60-74 years 1-dose series) [facility] Start: 07-19-2019 Hospital Encounter 07/19/2019 Hospital Encounter Radiology Daniel London MD [address] [phone] [facility] Start: 06-19-2019 Influenza vaccination Flu vaccine (#1) [place] Start: 04-10-2019 Annual Wellness Visit (AWV) Annual Wellness Visit (AWV) [place] Start: 08-28-2018 Pneumococcal 0-64 years Vaccine (2 - PPSV23 or PCV20) Pneumococcal 0-64 years Vaccine (2 - PPSV23 or PCV20) [facility] Start: 08-28-2018 Pneumococcal Vaccine: Pediatrics (0 to 5 Years) and At-Risk Patients (6 to 64 Years) (2 - PPSV23 if available, else PCV20) Pneumococcal Vaccine: Pediatrics (0 to 5 Years) and At-Risk Patients (6 to 64 Years) (2 - PPSV23 if available, else PCV20) [facility] Start: 10-23-2017 Pneumococcal Vaccine: 50+ Years (2 of 2 - PPSV23) Pneumococcal Vaccine: 50+ Years (2 of 2 - PPSV23) [facility] Start: 10-23-2017 Pneumococcal Vaccine: Pediatrics (0 to 5 Years) and At-Risk Patients (6 to 64 Years) (2 - PPSV23 if available, else PCV20) Pneumococcal Vaccine: Pediatrics (0 to 5 Years) and At-Risk Patients (6 to 64 Years) (2 - PPSV23 if available, else PCV20) [facility] Start: 10-23-2017 Pneumococcal Vaccine: Pediatrics (0 to 5 Years) and At-Risk Patients (6 to 64 Years) (2 of 2 - PPSV23 or PCV20) Pneumococcal Vaccine: Pediatrics (0 to 5 Years) and At-Risk Patients (6 to 64 Years) (2 of 2 - PPSV23 or PCV20) [facility] Start: 09-06-2016 A1C test (Diabetic or Prediabetic) A1C test (Diabetic or Prediabetic) [place] Start: 09-06-2016 Creatinine monitoring Creatinine monitoring [place] Start: 09-06-2016 HbA1c (Bld) [Mass fraction] A1C test (Diabetic or Prediabetic) [place] Start: 09-06-2016 Hemoglobin A1c measurement A1C test (Diabetic or Prediabetic) [facility] Start: 09-06-2016 Lipid panel [facility] Start: 09-06-2016 Lipid screen Lipid screen [place] Start: 09-06-2016 Potassium monitoring Potassium monitoring [place] Start: 02-03-2015 PROSTATE CANCER SCREENING DISCUSSION PROSTATE CANCER SCREENING DISCUSSION [facility] Start: 02-03-2010 Colon cancer screen colonoscopy Colon cancer screen colonoscopy [place], [place] Start: 02-03-2010 Screening for malignant neoplasm of colon Colon cancer screen colonoscopy [place] Start: 02-03-2010 Shingles Vaccine (1 of 2) Shingles Vaccine (1 of 2) [facility] Start: 02-03-2010 SHINGRIX VACCINE (1 of 2) SHINGRIX VACCINE (1 of 2) [facility] Start: 02-03-2010 Zoster Vaccines (1 of 2) Zoster Vaccines (1 of 2) [facility] Start: 02-03-2005 COLOGUARD (FIT-DNA) COLOGUARD (FIT-DNA) [facility] Start: 02-03-2005 Colonoscopy COLONOSCOPY [facility] Start: 02-03-2005 COLORECTAL CANCER SCREENING COLORECTAL CANCER SCREENING [facility] Start: 02-03-[address] COLONOGRAPHY [facility] Start: 02-03-2005 FECAL OCCULT BLOOD FECAL OCCULT BLOOD [facility] Start: 02-03-2005 Screening for malignant neoplasm of colon [facility] Start: 02-03-2005 SIGMOIDOSCOPY SIGMOIDOSCOPY [facility] Start: 2000 Prostate specific antigen measurement Prostate Specific Antigen (PSA) Screening or Monitoring [facility] Start: 02-03-1979 DTaP/Tdap/Td vaccine (1 - Tdap) DTaP/Tdap/Td vaccine (1 - Tdap) [facility] Start: 02-03-1979 Hepatitis A Vaccines (1 of 2 - Risk 2-dose series) Hepatitis A Vaccines (1 of 2 - Risk 2-dose series) [facility] Start: 02-03-1979 Hepatitis B Vaccine (1 of 3 - Risk 3-dose series) Hepatitis B Vaccine (1 of 3 - Risk 3-dose series) [facility] Start: 02-03-1979 Urine microalbumin profile DTAP,TDAP,TD (1 - Tdap) [facility] Start: 02-03-1979 Urine screening for protein Diabetes: Urine Protein Screening [facility] Start: 02-03-1978 ANNUAL PCP TEAM CHRONIC DISEASE VISIT ANNUAL PCP TEAM CHRONIC DISEASE VISIT [facility] Start: 02-03-1978 BP CONTROLLED (<130/80) BP CONTROLLED (<130/80) [facility] in Start: 02-03-1978 Diabetes: Urine Albumin-Creatinine Ratio for Kidney Health Diabetes: Urine Albumin-Creatinine Ratio for Kidney Health [facility] Start: 02-03-1978 Diabetic microalbuminuria test Diabetic microalbuminuria test [employer] Start: 02-03-1978 Diabetic retinal exam Diabetic retinal exam [facility] Start: 02-03-1978 Hepatitis B surface antibody level LDL CHOLESTEROL [facility] Start: 02-03-1978 Hepatitis C screening Hepatitis C screen [facility] Start: 02-03-1978 HIV SCREENING HIV SCREENING [facility] Start: 02-03-1978 SPIROMETRY SPIROMETRY [facility] Start: 02-03-1978 Urine screening for protein Diabetic microalbuminuria test [facility] Start: 02-03-1975 HIV screen HIV screen [place] Start: 02-03-1975 HIV screening HIV screen [facility] Start: 1972 Adult depression screening assessment DEPRESSION SCREENING [facility] Start: 1972 Depression Screen Depression Screen [facility] Start: 1972 Depresssion Monitoring Depresssion Monitoring [facility] Start: 02-03-1970 [object Object] Diabetic foot exam [facility] Start: 02-03-1970 Diabetic foot examination [facility] Start: 02-03-1970 Diabetic retinal exam Diabetic retinal exam [place] Start: 02-03-1970 Glaucoma screening Diabetes: Retinopathy Screening [facility] Start: 02-03-1970 Hepatitis B screening URINE ALBUMIN:CREATININE RATIO [facility] Start: 02-03-1970 Hepatitis C antibody, confirmatory test DILATED RETINAL EXAM [facility] Start: 02-03-1970 Preventive dental service Diabetes: Dental Exam [facility] Start: 02-03-1966 PNEUMOCOCCAL (1 - PCV) PNEUMOCOCCAL (1 - PCV) [facility] Start: 02-03-1966 Pneumococcal 0-64 years Vaccine (1 - PCV) Pneumococcal 0-64 years Vaccine (1 - PCV) [facility] Start: 02-03-1966 Pneumococcal 0-64 years Vaccine (1 of 1 - PPSV23) Pneumococcal 0-64 years Vaccine (1 of 1 - PPSV23) [place] Start: 02-03-1965 Hemoglobin A1c/Hemoglobin.total in Blood HBA1C [facility] Start: 02-03-1961 HEPATITIS A (1 of 2 - Risk 2-dose series) HEPATITIS A (1 of 2 - Risk 2-dose series) [facility] Start: 02-03-1961 Hepatitis A vaccine (1 of 2 - Risk 2-dose series) Hepatitis A vaccine (1 of 2 - Risk 2-dose series) [facility] Start: 02-03-1961 Hepatitis A Vaccines (1 of 2 - Risk 2-dose series) Hepatitis A Vaccines (1 of 2 - Risk 2-dose series) [facility] Start: 02-03-1961 MMR Vaccines (1 of 1 - Standard series) MMR Vaccines (1 of 1 - Standard series) [facility] Start: 1960 COVID-19 Vaccine (#1) COVID-19 Vaccine (#1) [facility] Start: 1960 Annual wellness visit Medicare Initial Physical (IPPE) [facility] Start: 1960 Annual Wellness Visit (AWV) Annual Wellness Visit (AWV) [facility] Start: 1960 Hepatitis C screen Hepatitis C screen [place], [place] Start: 1960 Hepatitis C screening Hepatitis C screen [place] Start: 1960 HIV screening HIV Screening [facility] Start: 1960 Lipid panel Lipid Panel [facility] Start: 1960 Medicare Advantage Annual Wellness Visit (AWV) Medicare Advantage Annual Wellness Visit (AWV) [facility] Start: 1960 Medicare Annual Wellness (AWV) Medicare Annual Wellness (AWV) [facility] Start: 1960 Screening for malignant neoplasm of colon [facility] End: 06-25-2020 Add On Lab Test Add On Lab Test Lab Routine One Time for 1 Occurrences starting 06/25/2020 until 06/25/2020 [place] Comment on above: One Time for 1 Occurrences starting 04/2020 until 06/25/2020 End: 03-08-2024 Blood gases, venous measurement Blood gas, venous ([facility]) Lab STAT Once (Lab) for 1 Occurrences starting 03/08/2024 until 03/08/[address] [facility] Work Phone: Comment on above: Once (Lab) for 1 Occurrences starting until 03/08/2024 End: 06-04-2022 C. difficile toxin Molecular C. difficile toxin Molecular Microbiology Add-On 48 HRS for 47 Hours starting 06/04/2022 until 06/04/2022 [facility] Comment on above: 48 HRS for 47 Hours starting 05/19 until 06/04/2022 End: 06-24-2020 C. Trachomatis / N. Gonorrhoeae, DNA Probe C. Trachomatis / N. Gonorrhoeae, DNA Probe Microbiology Routine One Time for 1 Occurrences starting 06/24/2020 until 06/24/2020 [place] Comment on above: One Time for 1 Occurrences starting 03/2020 until 06/24/2020 C. Trachomatis / N. Gonorrhoeae, DNA Probe C. Trachomatis / N. Gonorrhoeae, DNA Probe Microbiology STAT 06/24/2020 11:30 PM EDT [facility] [place] End: 07-05-2024 Calprotectin (BKR QUEST) [facility] Work Phone: Comment on above: Once (Lab) for 1 Occurrences starting until 07/05/2024 Clostridioides diffi cile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 Discharge date updated and milestones completed. Pt will be transported to [facility] via ambulance transport today at 3:00 pm. Asked by [facility] to set transport to [facility]. Wheel chair transportation arranged through [facility] for 1300 apple picker. 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 Patient Choice Patient Name: WOODY NI Date of : 1960 All Providers Sent [facility] Address: [address] [place], [place] [id number] Name: [facility] Member Phone: [phone] Address: [address] [place] [address] Discharge med list transmitted to [facility] via [employer] per TCC request. 7000 was entered into Rev for the [facility]. Updated notes placed to [facility] via [employer] per TCC request. Await review and response regarding ability to accept. TCC notified. Pt remains on . Pt is medically ready for DC. TCC tasked PT and OT to see today. [facility] is willing to accept. No covid needed, pt is able to go now with SNF covid isolation policy. Updated PT and OT notes in. TCC tasked DIRECTOR DIGITAL COMMUNICATIONS to send updated MD,PT, and OT notes to [facility]. TCC messaged SNF via careport to start auth once updated notes are received. TCC updated pt at bedside. Pt agreeable to plan. Auth pending. TCC will follow for auth approval. Referral placed to [facility] via [employer] per TCC request. Await review [...] unsure what the name of his Medicaid watch case polisher is. Attempted to discuss [employer] and various agency assistance, however pt was fixated on talking about going to [facility] at discharge and requested SW put information on his discharge instructions. SW will provide follow up info for pt on his instructions per his request. Pt remains on . Covid positive 01/14. BLE venous duplex done 01/20. Addiction medicine signed off 01/19. OT recommending SNF as well. TCC called pt to get choices. FOC is [facility] and 2. [facility]. Pt asked TCC to call partner [place] to get more choices if those deny. TCC tried to call partner and no one answered, no VM box to leave. TCC tasked weekend therapy to see 01/23 for updated notes. TCC tasked DIRECTOR DIGITAL COMMUNICATIONS to make the above referrals and ask [...] Limits Permission given to speak with patient service liaison representative/caregiver as indicated: Confirmation of Payer with patient/family: Yes Payer Name: 1. anth medicare advantage 2. medicaid : Yes (Dmailer) Confirmation of Primary Care Physician: Confirmed PCP [...] Coverage: Yes [facility]acy [facility] Medication Management: Independent Transportation/Shopping: Assistance Provider [...] time. TCC will follow. Patito Shah RN Problem: Pain Goal: My pain/discomfort [...] Outcome: Progressing documented in this encounter [facility] 01-26-2024 Note Formatting of this n ote might be different from the original. Asked by [facility] to set transport to [facility]. Wheel chair transportation arranged through [facility] for 1300 apple picker. 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 T [facility] 01-26-2024 Note Formatting of this n ote might be different from the original. Asked by [facility] to set transport to [facility]. Wheel chair transportation arranged through [facility] for 1300 apple picker. 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 T [facility] 01-26-2024 Note Formatting of this n ote might be different from the original. Patient Choice Patient Name: WOODY NI Date of : 1960 All Providers Sent Referral Name: [employer]. Address: [address] [place] [address] Name: [place] - [facility] Member Phone: [phone] Address: [address] [place] [id number] [facility] 01-26-2024 Note Formatting of this n ote might be different from the original. Patient Choice Patient Name: WOODY NI Date of : 1960 All Providers Sent Referral Name: [employer]. Address: [address] [place] [address] Name: [place] - [facility] Member Phone: [phone] Address: [address] [place] [id number] [facility] 01-26-2024 Note Formatting of this n ote might be different from the original. Discharge med list transmitted to [facility] via [employer] per TCC request. 7000 was entered into Rev for the [facility]. [facility] 01-26-2024 Note Formatting of this n ote might be different from the original. Discharge med list transmitted to [facility] via [employer] per TCC request. 7000 was entered into Rev for the [facility]. [facility] 01-26-[address] [facility] 01-26-2024 Hospital course Narrative Discharge Summary Woody [...] abdominal pain a/w N/V/Diarrhea and presented to [place] [facility]. In ED he was feeling tremulous like going through WD. Feeling better after antiemetics and lorazepam. Found to have COVID infection and unable to go to detox unit and was admitted to for further eval and management He completed 3 days remdesivir for severe disease ppx Completed phenobarb taper 01/19 Benadryl helps his chronic pruritus He was DC to [facility] SIGNIFICANT DIAGNOSTIC STUDIES: none CONSULTANTS: Psychiatry [...] Your Medications These medications were sent to [facility] [address], [facility] [address] Diclofenac Sodium 1 % gel magnesium chloride 64 MG EC tablet miconazole 2 % powder nicotine polacrilex 2 MG lozenge nystatin cream DIET: Adult diet Regular; 2000 ml ACTIVITY: No restriction. COMPLEXITY OF FOLLOW UP: [x] Moderate Complexity: follow up within 7-14 calendar days (44109) [] Severe Complexity: follow up within 7 calendar days ([id number]) FOLLOW UP TESTING, PENDING RESULTS OR REFERRALS AT TRANSITIONAL CARE VISIT: [] Yes [x] No PENDING STUDIES: none DISPOSITION: Skilled Facility FACILITY/HOME CARE AGENCY NAME: [facility], [facility] Follow up with No follow-up provider [...] 8:11 AM documented in this encounter [facility] 01-26-2024 History of Present illness Narrative Images from the original note were not included. Hospitalist Progress Note 01/26/2024 Subjective: Admit Date: 01/15/2024 PCP: Jani Quezada Room#: M5-970/E5-430 A Chief Complaint Patient presents with Vomiting Withdrawal Alcohol BRIEF HOSPITAL COURSE: Pt with h/o alcoholism, anxiety/depression, HTN, hypothyroidism, SHAYLA, gout, HepC, liver cirrhosis, chronic pain , DM2, hyponatremia, ETOH induced pancreatitis Pt drinks 18 beer daily, last drink on 01/13 at 6 pm . Woke up in the morning with abdominal pain a/w N/V/Diarrhea and presented to [place] [facility]. In ED he was feeling tremulous [...] syndrome Cirrhosis (HCC) Dehydration 12/22/22-12/26/22 admitted to [facility] Depression Diabetes mellitus (HCC) Gout Hepatitis C Hypertension Hyponatremia Hypothyroidism [facility] prescription opiate use Nausea and vomiting 12/22/22-12/26/22 admitted at [facility] Pain management Sleep apnea noncompliant with device [...] Discharge - Date - tbd - Location -[facility] - Pending the following - precert (per notes accepted at [facility]) Total time spent (which include face [...] original note were not included. PHYSICAL THERAPY [facility] Treatment Note Name/MRN: Woody Ni ([id number]) Date of : 1960 Age: 63 y.o. Room[facility]Bed: [facility] A Discharge Recommendation: Long-Term Facility Equipment Needed: (TBD at next level [...] that he is excited about going to [facility] later today. Pain: c/o chronic back pain, [...] "I just need help" "to go to [facility] today" Encounter Problems Encounter Problems (Active) Mobility [...] original note were not included. OCCUPATIONAL THERAPY [facility] Treatment Note Name/MRN: Woody Ni ([id number]) Date of : 1960 Age: 63 y.o. Room/Bed: E5-507/E5-507 A Discharge Recommendation: Long-Term Facility Other: TBD next level therapy Prior [...] original note were not included. PHYSICAL THERAPY [facility] Name/MRN: Woody Ni ([id number]) Date: 01/25/2024 Attempted PT. Pt states he can't do any therapy right now because he needs his meds first. Will re-attempt as schedule allows. Amarilys Leary PTA Images from the original note were not included. Hospitalist Progress Note 01/25/2024 Subjective: Admit Date: 01/15/2024 PCP: Jani Quezada Room#: E5-001/E5-771 A Chief Complaint Patient presents with Vomiting Withdrawal Alcohol BRIEF HOSPITAL COURSE: Pt with h/o alcoholism, anxiety/depression, HTN, hypothyroidism, SHAYLA, gout, HepC, liver cirrhosis, chronic pain , DM2, hyponatremia, ETOH induced pancreatitis Pt drinks 18 beer daily, last drink on 01/13 at 6 pm . Woke up in the morning with abdominal pain a/w N/V/Diarrhea and presented to [place] ED. In ED he was feeling tremulous [...] syndrome Cirrhosis (HCC) Dehydration 12/22/22-12/26/22 admitted to [facility] Depression Diabetes mellitus (HCC) Gout Hepatitis C Hypertension Hyponatremia Hypothyroidism [facility] prescription opiate use Nausea and vomiting 12/22/22-12/26/22 admitted at [facility] Pain management Sleep apnea noncompliant with device [...] Radha Berry MD Division of Hospitalist Medicine [facility] Images from the original note were not included. Hospitalist Progress Note 01/24/2024 Subjective: Admit Date: 01/15/2024 PCP: Jani Quezada Room#: E5-507/E5-503 A Chief Complaint Patient presents with Vomiting Withdrawal Alcohol BRIEF HOSPITAL COURSE: Pt with h/o alcoholism, anxiety/depression, HTN, hypothyroidism, SHAYLA, gout, HepC, liver cirrhosis, chronic pain , DM2, hyponatremia, ETOH induced pancreatitis Pt drinks 18 beer daily, last drink on 01/13 at 6 pm . Woke up in the morning with abdominal pain a/w N/V/Diarrhea and presented to [place] ED. 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 Hospitalist Progress Note 01/23/2024 Subjective: Admit Date: 01/15/2024 PCP: Jani Quezada Room#: M4-544/F5-348 A Chief Complaint Patient presents with Vomiting Withdrawal Alcohol BRIEF HOSPITAL COURSE: Pt with h/o alcoholism, anxiety/depression, HTN, hypothyroidism, SHAYLA, gout, HepC, liver cirrhosis, chronic pain , DM2, hyponatremia, ETOH induced pancreatitis Pt drinks 18 beer daily, last drink on 01/13 at 6 pm . Woke up in the morning with abdominal pain a/w N/V/Diarrhea and presented to [place] ED. 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 prescription opiate use Nausea and vomiting 12/22/22-12/26/22 admitted at [facility] Pain management Sleep apnea noncompliant with device [...] Ethel Anna DO Division of Hospitalist Medicine [facility] Nutrition Assessment Type and Reason for Visit: [...] Accumulation: No significant fluid accumulation (per flowsheet) 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 He remains in [facility] isolation. RD called into room for [...] On: Kcal/kg Weight Used for Energy Requirements: [place] Weight for Energy Calculation (kg): 75 kg Total Energy Requirements (kcals/day): 27 kcal/kg = 2024 kcal/day Weight Used for Protein Requirements: [place] Weight in Kg Used for Protein Requirements: [...] Current Nutrition Therapies: Adult diet Regular; GI Bacon (GERD/Peptic Ulcer) Current Oral Intake Average Meal Intake: 0% Average Supplements Intake: 76-100% (per pt report) Anthropometric Measures: Height: 177.8 cm (5' 10") Current Body Weight: (DANTE- no new weight) Admission Body Weight: 79.3 kg (174 lb 13.2 oz) ([facility] 01/14) Usual Body Weight: (171# on 02/11/23, 172# on 04/11/23, 160# on 10/22/23) [place] Body Weight (lbs) (Calculated): 166 lbs [place] Body Weight (Kg) (Calculated): 75 kg % [place] Body Weight (Calculated): 105.3 % BMI (kg/m2) [...] to determine Sloane Lyons RD, LD Contact: *[phone] or via Fileboard chat Images from the original note were not included. OCCUPATIONAL THERAPY [facility] Treatment Note Name/MRN: Woody Ni ([id number]) Date of : 1960 Age: 63 y.o. Room/Bed: E5507/E5507 A Discharge Recommendation: Long-Term Facility Other: TBD next level therapy Prior [...] Admit Date: 01/15/2024 PCP: Jani Quezada Room#: E5-657/E5-645 A Chief Complaint Patient presents with Vomiting Withdrawal Alcohol BRIEF HOSPITAL COURSE: Pt with h/o alcoholism, anxiety/depression, HTN, hypothyroidism, SHAYLA, gout, HepC, liver cirrhosis, chronic pain , DM2, hyponatremia, ETOH induced pancreatitis Pt drinks 18 beer daily, last drink on 01/13 at 6 pm . Woke up in the morning with abdominal pain a/w N/V/Diarrhea and presented to [place] ED. In ED he was feeling tremulous [...] yesterday Appetite improved Adult diet Regular; GI Bacon (GERD/Peptic Ulcer) 24HR INTAKE/OUTPUT: Intake/Output Summary (Last 24 hours) at 01/22/2024 0824 Last data filed at 01/22/2024 0526 Gross per 24 hour Intake 880 ml Output 300 ml Net 580 ml Past Medical History: Past Medical History: Diagnosis Date Acid reflux Alcoholism (CMS/HCC) (HCC) Anxiety Back pain Chronic pain syndrome Cirrhosis (HCC) Dehydration 12/22/22-12/26/22 admitted to [facility] Depression Diabetes mellitus (HCC) Gout Hepatitis C Hypertension Hyponatremia Hypothyroidism 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 OCCUPATIONAL THERAPY [facility] Initial Evaluation Name/MRN: Woody Ni ([id number]) Evaluation Date: 01/21/2024 Date of : 1960 Admission Date: 01/15/2024 10:30 AM Age: 63 y.o. 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 Goals and/or treatment plan was established in collaboration with patient/family/other representatives. Images from the original note were not included. Hospitalist Progress Note 01/21/2024 Subjective: Admit Date: 01/15/2024 PCP: Jani Quezada Room#: G2-951/[id number] A Chief Complaint Patient presents with Vomiting Withdrawal Alcohol BRIEF HOSPITAL COURSE: Pt with h/o alcoholism, anxiety/depression, HTN, hypothyroidism, SHAYLA, gout, HepC, liver cirrhosis, chronic pain , DM2, hyponatremia, ETOH induced pancreatitis Pt drinks 18 beer daily, last drink on 01/13 at 6 pm . Woke up in the morning with abdominal pain a/w N/V/Diarrhea and presented to [place] ED. In ED he was feeling tremulous [...] itching. 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 prescription opiate use Nausea and vomiting 12/22/22-12/26/22 admitted at [facility] Pain management Sleep apnea noncompliant with device [...] Ethel Anna DO Division of Hospitalist Medicine [facility] Images from the original note were [...] Admit Date: 01/15/2024 PCP: Jani Quezada Room#: [id number]/[id number] A Chief Complaint Patient presents with Vomiting Withdrawal Alcohol BRIEF HOSPITAL COURSE: Pt with h/o alcoholism, anxiety/depression, HTN, hypothyroidism, SHAYLA, gout, HepC, liver cirrhosis, chronic pain , DM2, hyponatremia, ETOH induced pancreatitis Pt drinks 18 beer daily, last drink on 01/13 at 6 pm . Woke up in the morning with abdominal pain a/w N/V/Diarrhea and presented to [place] ED. In ED he was feeling tremulous [...] All questions answered. 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 PHYSICAL THERAPY [facility] Initial Evaluation Name/MRN: Woody Ni ([id number]) Evaluation Date: 01/20/2024 Date of : 1960 Admission Date: 01/15/2024 10:30 AM Age: 63 y.o. 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 [...] of Care supervision is transferred to a [facility] Physical Therapist. 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 Nutrition Assessment: Pt with PMH including alcoholism, cirrhosis, HTN, DM, hepatitis C, hypothyroidism, gout, chronic back pain, SHAYLA, depression, falls, debility, presented to [facility] ED on 01/15/24 with N/V/D and abdominal [...] On: Kcal/kg Weight Used for Energy Requirements: [place] Weight for Energy Calculation (kg): 75 kg Total Energy Requirements (kcals/day): 27 kcal/kg = 2024 kcal/day Weight Used for Protein Requirements: [place] Weight in Kg Used for Protein Requirements: [...] Current Nutrition Therapies: Adult diet Regular; GI Bacon (GERD/Peptic Ulcer) Current Oral Intake Average Meal Intake: 76-100% Average Supplements Intake: 51-75% Anthropometric Measures: Height: 177.8 cm (5' 10") Current Body Weight: 79.3 kg (174 lb 13.2 oz) (01/17) Admission Body Weight: 79.3 kg (174 lb 13.2 oz) ([facility] 01/14) Usual Body Weight: (171# on 02/11/23, 172# on 04/11/23, 160# on 10/22/23) [place] Body Weight (lbs) (Calculated): 166 lbs [place] Body Weight (Kg) (Calculated): 75 kg % [place] Body Weight (Calculated): 105.3 % BMI (kg/m2) [...] to determine Sloane Lyons RD, LD Contact: *[phone] or via Fileboard chat Wound Care consulted for Pressure Injury Prevention. Pt's Pranav score= 18 on 01/15, Pranav now=20 Skin Care precaution order set in place. Tracer Bullet Charging Machine Operator consult in place. PT consult N/A, subscores=3. Will continue to follow pt. Please Voicera for any questions or concerns. Gina Sarmiento RN, CWCN Images from the original note were not included. Hospitalist Progress Note 01/19/2024 Subjective: Admit Date: 01/15/2024 PCP: Jani Quezada Room#: G5-227/E5-389 A Chief Complaint Patient presents with Vomiting Withdrawal Alcohol BRIEF HOSPITAL COURSE: Pt with h/o alcoholism, anxiety/depression, HTN, hypothyroidism, SHAYLA, gout, HepC, liver cirrhosis, chronic pain , DM2, hyponatremia, ETOH induced pancreatitis Pt drinks 18 beer daily, last drink on 01/13 at 6 pm . Woke up in the morning with abdominal pain a/w N/V/Diarrhea and presented to [place] ED. In ED he was feeling tremulous [...] All questions answered. 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 Would like to enter a [facility] but debility poses a challenge. PLAN [...] Admit Date: 01/15/2024 PCP: Jani Quezada Room#: E5-147/E5-502 A Brief Hospital course: Woody is a 63 y.o. male with past medical history below who presents with chief complaint of abdominal pain associated with nausea, vomiting, diarrhea. Patient initially presented to [facility] with N/V/D with abdominal pain. 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 male with past medical history below who presents with chief complaint of abdominal pain associated with nausea, vomiting, diarrhea. Patient initially presented to [facility] ED with N/V/D with abdominal pain. Reports [...] syndrome Cirrhosis (HCC) Dehydration 12/22/22-12/26/22 admitted to [facility] Depression Diabetes mellitus (HCC) Gout Hepatitis C Hypertension Hyponatremia Hypothyroidism MCC prescription opiate use Nausea and vomiting 12/22/22-12/26/22 admitted at [facility] Pain management Sleep apnea noncompliant with device Adult diet Regular; GI Bacon (GERD/Peptic Ulcer) 24HR INTAKE/OUTPUT: Intake/Output Summary (Last [...] MD Division of Hospitalist Medicine Inpatient Medical Services/[facility] Nutrition Assessment Type and Reason for Visit: [...] isolation) Fluid Accumulation: No significant fluid accumulation 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[employer] Strength: Not Performed Nutrition Assessment: 63yo M [...] On: Kcal/kg Weight Used for Energy Requirements: [place] Weight for Energy Calculation (kg): 75 kg Total Energy Requirements (kcals/day): 27 kcal/kg = 2024 kcal/day Weight Used for Protein Requirements: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 alarm security or surveillance monitor and CIWA done upon arrival. Seizure pads placed on bed. [facility] 01-15-2024 Physician Emergency department Note EMERGENCY [...] otherwise acutely negative except as in the KASAAN. 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 prescription opiate use Nausea and vomiting 12/22/22-12/26/22 admitted at [facility] Pain management Sleep apnea noncompliant with device [...] min Stress: No Stress Concern Present (04/03/2023) [place] [employer] - Occupational Stress Questionnaire Feeling of Stress : Not at all Social Connections: Socially Isolated (12/07/2023) Social Connection and Isolation Panel [NHANES] Frequency of Communication with Friends and Family: Never Frequency of Social Gatherings with Friends and Family: Never Attends Hinduism Services: Never Active Member of Clubs or [...] Culture. Procedure Abnormality Status --------- ------ Complete Urinalysis[[id number]] Abnormal Final result Please view results for [...] after the patient's nausea improved. Admitted to [facility]. Diagnoses as of 01/15/24 1506 Alcohol withdrawal [...] Provider Daniel Ewing DO 01/15/[address] [facility] 12-25-2023 Note HNO ID: [id number] Author: CURTIS ISABEL RT(R) Service: ? Author Type: Carpenter Rough Type: Progress Notes Filed: 12/25/2023 14:59 Note [...] PATIENT PRESENTS WITH AN IMPLANTABLE OR ATTACHED OIL BAY TECHNICIAN: No ALLERGIES: Reviewed and unchanged CONTRAST ALLERGY: [...] DATE: December 25, 2023 TIME: 2:59 PM [facility] 12-24-2023 Note HNO ID: [id number] Author: MUNIRA STALEY PA-C Service: ? Author Type: Physician Marker Delivery Type: Progress Notes Filed: 12/24/2023 12:52 Note Text: CHIEF COMPLAINT: Patient presents with: Hospital F/U: ER 10/20/23 HPI Accompanied by significant other Kingsley Ni is a 63 year old male with PMHx positive for DM, HTN, HLD here today for Hospital F/U (ER 10/20/23). Seen last in 2021 for h/o Hep C, cirrhosis, EtOH abuse. Pt performed labs, got recommended EGD through [facility]. Recently admitted at [facility] 10/2023 due to alcohol induced pancreatitis, wanting to quit EtOH. Hospital course reviewed and copied/pasted below. No imaging performed. Following with [facility] addition medicine program to d/c alcohol. Currently drinking 12-18 beers per day. Admits to generalized abdominal pain, 10/10, increased acid indigestion on a regular basis, intermittent episodes of emesis daily. No longer taking previously prescribed Protonix. Bms are multiple per day, loose to watery, no blood/black coloring. Weight has been fluctuating at about 10 lbs. Low grade fevers at home. [facility] Admission 10/2023 HOSPITAL COURSE: Woody Ni [...] diet and [facility] Woody Ni is a [...] (FLONASE) 50 mcg/actuation nasal spray Use 1 [place] in the nose once daily as needed. [...] HISTORY Procedure Laterality (more content not included)... [facility] 12-07-2023 History of Present illness Narrative Outpatient Behavioral Health Initial Assessment Start Time: 856, End Time: 100[address] a [address] Appointed Guardian? None Does patient have a Durable Power of Tanker Serviceman? Yes (Name) (Kingsley Murdock only) Does the patient have an Advanced Directive? If Yes, copy received? Patient would like information No Screening Tool Score Comment (required for each screening tool) PHQ-9 23 (PHQ-2: 6) severe NEMESIO-7 21 severe AUDIT-C 12 significant DAST-10 (!) 8 significant Life Events Checklist Positive 8 items selected PCL-5 0 insignificant Language Preferred Language: Hebrew Languages Spoken: Hebrew Presenting Problem(s) Reason for visit as reported [...] place to sleep or slept in a detention (including now)?: No Patient feels safe at [...] identify any impact on treatment) Pt denies Protestant/Spiritual Orientation (note if patient identifies any belief in higher power, christianity belief, or not. 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 [facility] Resources Accessed Medicare and Medicaid Legal History [...] If the patient has ever been to skilled nursing or in alf, list where and how much time the patient served:: NA Is there a relationship between the presenting condition and legal involvement? : No Medical History Past Medical History: Diagnosis Date Acid reflux Alcoholism (CMS/HCC) (HCC) Anxiety Back pain Chronic pain syndrome Cirrhosis (HCC) Dehydration 12/22/22-12/26/22 admitted to [facility] Depression Diabetes mellitus (HCC) Gout Hepatitis C Hypertension Hyponatremia Hypothyroidism watermelon inspector prescription opiate use Nausea and vomiting 12/22/22-12/26/22 admitted at [facility] Pain management Sleep apnea noncompliant with device [...] to detox 10/20/23. He was in a [facility] rehab facility 11/10/23 Past Surgical History: Procedure [...] abstinence: 2 year period of sobriety in 7034-0598. Then his medication got reduced. Twelve-step meeting [...] X4 Level of Consciousness: Alert Thought Processes: [place] Thought Content: Unremarkable Delusions: (none reported or [...] October followed by 2 wks at a [facility]ci facility. Pt was terminated from pain management [...] house. He communicates with family and live-in [facility]. He reported a friend delivers his alcohol but has been advised not to do so anymore. He reported Dr. Márquez used to prescribe him Lexapro and Wellbutrin but she relocated to [place]. Pt interested in establishing care with a psychiatrist. Pt advised to contact [facility] psychiatry or community mental health. Pt [...] HIPOLITO Lafleur documented in this encounter [facility] 10-27-2023 History of Present illness Narrative Report given to Iliana at [facility]. Images from the original note were not included. PHYSICAL THERAPY [facility] Treatment Note Name/MRN: Woody Ni ([id number]) Date of : 1960 Age: 63 y.o. Room/Bed: B4-454/B4-454 B Visit #: 1 out of 5 visits Discharge Recommendation: Long-Term Facility Equipment Needed: No Prior Level of [...] [facility] Name/MRN: Woody Ni ([id number]) Date of : 1960 Age: 63 y.o. [facility] Visit #: 2 out of 5 visits Discharge Recommendation: Long-Term Facility Equipment Needed: No Prior Level of [...] Facility - Pending the following - jessy BENZ DO 10/25/23 9:56 AM Patient seen and chart reviewed. No bleed or thrombosis. Afebrile. Adequate oxygenation on room air. Baseline mentation. Persistent low grade HTN and tachycardia. Exam otherwise stable X 5 systems. Hgb 11.4 WBC 3.0 K Platelets 37 K BUN 6 Creatinine 0.59 GFR > 90 ml/min. LDH 231 Haptoglobin 161.5. No hemolysis. Pancytopenia unchanged. Discussed with patient, , and staff developer. Total visit time > 35 minutes. 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 Pharmacy has raised the possibility of spontaneous HIT even without heparin exposure. Low possibility for HIT on [place] criteria. Will order PF4 titer. Discussed with patient's staff developer. Will continue to monitor. Total visit time > 35 minutes. Images from the original note were not included. PHYSICAL THERAPY [facility] Name/MRN: Woody Ni ([id number]) Date: 10/23/2023 Chart review completed this date. PT attempted. RN cleared for therapy. States pt is currently on the BSC. REPLENISHER enters the room to find pt in bed c/o not being allowed to use the BSC. REPLENISHER notices BSC lid up with urine in the basin. Pt states nsg won't let him get up for anything...not to walk, go to the bathroom, nothing! REPLENISHER explains she is there to see how he is moving and to allow him to get up and move about. Pt scoffs and says, No! The nurse says I can't get up so I am not getting up." Pt then rolls away from REPLENISHER and closes his eyes. Max encouragement provided with no success. Multiple options for therapy participation provided with no success. PT will continue to follow. Will re-attempt another time/date as schedule permits. Iliana Anne, REPLENISHER Images from the original note were not included. OCCUPATIONAL THERAPY [facility] Treatment Note Name/MRN: Woody Ni ([id number]) Date of : 1960 Age: 63 y.o. Room/Bed: B4-454/B4454 B Visit #: 1 out of 5 visits Discharge Recommendation: Long-Term Facility Equipment Needed: No Prior Level of [...] at risk for falls, nurse notified, and ethylene oxide panelboard operator present Restraints: No Education Education Given To: [...] a withdrawal standpoint. Thrombocytopenia likely 2/2 to chcf alcoholism but no signs of bleeding or [...] (gastrocnemius) Fluid Accumulation: No significant fluid accumulation 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Mining Products Strength: Not Performed Nutrition Assessment: Pt was [...] (kg): 73 kg Total Energy Requirements (kcals/day): 6471-4727 kcals (25-30 kcals/kg) Weight Used for Protein Requirements: Current Weight in Kg Used for Protein Requirements: 73 kg Estimated Total Protein (g/day): 73-88 (1-1.2g/kg) Estimated Daily Total Fluid (ml/day): 8055-5437 ml/day or per MD Nutrition Related Findings: [...] 08/2022, 182#-02/13/23) % Weight Change (Calculated): -23.9 [place] Body Weight (lbs) (Calculated): 166 lbs [place] Body Weight (Kg) (Calculated): 75 kg % [place] Body Weight (Calculated): 96.3 % BMI (kg/m2) [...] soon to determine Kristine George RD Contact: *[phone] or via Secure Chat Department of Family [...] [facility] Initial [facility] Name/MRN: Woody Ni ([id number]) Evaluation Date: 10/21/2023 Date of : 1960 Admission Date: 10/20/2023 5:00 PM Age: 63 y.o. Room/Bed: 09/29 Discharge Recommendation: Long-Term Facility Equipment Needed: No Assessment IMPRESSION: Pt [...] syndrome Cirrhosis (HCC) Dehydration 12/22/22-12/26/22 admitted to [facility] Depression Diabetes mellitus (HCC) Gout Hepatitis C Hypertension Hyponatremia Hypothyroidism MCC prescription opiate use Nausea and vomiting 12/22/22-12/26/22 admitted at [facility] Pain management Sleep apnea noncompliant with device [...] base quad cane Transfer Assistance: Independent Active Farm Adviser: No Occupation: On disability Prior Level of [...] of Care supervision is transferred to a [facility] Therapy Services Occupational Therapist. Goals and/or treatment plan was established in collaboration with patient/family/other representatives. Images from the original note were not included. PHYSICAL THERAPY [facility] Initial Evaluation Name/MRN: Woody Ni ([id number]) Evaluation Date: 10/21/2023 Date of : 1960 Admission Date: 10/20/2023 5:00 PM Age: 63 y.o. 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 Goals and/or treatment plan was established in collaboration with patient/family/other representatives. documented in this encounter [facility] 10-27-2023 Note Formatting of this n [...] any other needs or concerns arise. [facility] 10-27-2023 Miscellaneous Notes SW follow up. [...] time. Notified Dakota Rhodes of transportation via [facility]. Will update patient at bedside. Patient does have a SW consult for HCPOA. Will complete HCPOA paperwork with patient prior to discharge. Patient Choice Patient Name: WOODY NI Date of : 1960 All Providers Sent Referral Name: Dakota Rhodes - CPAN Member Phone: [phone] Address: [address] [place] [address] [facility] per T[facility] request. 7000 was entered into Rev for the SNF- Facility is aware Discharge order written. Tasked DIRECTOR DIGITAL COMMUNICATIONS to complete 7000 and send dc packet to Dakota Rhodes. Did update primary care nurse and manager social responsibility. . Updated attending that auth has been obtained for Dakota Rhodes. Checking to determine if auth is good through tomorrow. . Images from the original note were not included. [facility] Medical [facility] Palliative Care Transitions of [...] Chronic alcohol abuse who was admitted to [facility] on 10/20/23 with complain of nausea, vomiting, [...] has been signed, will request assistance from manager social responsibility - discussed CPR, intubation, vent - patient [...] of Information: Patient Name/Contact Information: KINGSLEY CARL [phone] SIGNIFICANT OTHER Cognition/Language: WFL - Within Functional Limits Permission given to speak with patient service liaison representative/caregiver as indicated: Yes Confirmation of Payer [...] Coverage: Yes Pharmacy Used: [facility] [place] Medication Management: Prescription pick-up Who assists with [...] WITH HHC VS SNF Discharge Planning Actions: Long-Term Facility referral indicated Fowler of choice: Fowler of choice discussed, Choice list provided Patient's [...] like referral made to Dakota Rhodes. Tasked [facility] to place referral to Dakota Rhodes and [...] shift include documented in this encounter [facility] 10-27-2023 Hospital course Narrative Discharge Summary [...] diet and he is being discharged to [facility] SIGNIFICANT DIAGNOSTIC STUDIES: Labs xrays CONSULTANTS: GI [...] Complexity: follow up within 7-14 calendar days (95280) [] Severe Complexity: follow up within 7 calendar days (72953) FOLLOW UP TESTING, PENDING RESULTS OR REFERRALS AT TRANSITIONAL CARE VISIT: [] Yes [] No PENDING STUDIES: none DISPOSITION: Skilled Facility [facility] with Wild Rowe DO [address] [facility] [address] [facility] [address] Schedule an appointment as soon as possible for a visit Peg to help with alcohol cravings [facility] Psych IOP [address] [facility] [phone] Schedule an appointment as soon as [...] 9:00 AM documented in this encounter [facility] 10-27-2023 Note Formatting of this n ote might be different from the original. Transportation arranged through [facility] by cot set for 12 pm. Notified RN and TCC of transportation time. Notified Dakota Rhodes of transportation via [employer]. Will update patient at bedside. Patient does have a SW consult for HCPOA. Will complete HCPOA paperwork with patient prior to discharge. [facility] 10-27-2023 Note Formatting of this n ote might be different from the original. Patient Choice Patient Name: WOODY NI Date of : 1960 All Providers Sent Referral Name: Dakota LIZ Member Phone: [phone] Address: [address] [place] [id number] [facility] 10-27-2023 Note Formatting of this n ote might be different from the original. Discharge med list transmitted to [facility] via [facility] per TCC request. 7000 was entered into [facility] for the SNF- Facility is aware [facility] 10-27-2023 Note Formatting of this n ote might be different from the original. Discharge order written. Tasked DIRECTOR DIGITAL COMMUNICATIONS to complete 7000 and send dc packet to Dakota Rhodes. Did update primary care nurse and manager social responsibility. . [facility] 10-26-2023 Note Formatting of this n ote might be different from the original. Updated attending that auth has been obtained for Dakota Rhodes. Checking to determine if auth is good through tomorrow. . [facility] 10-26-2023 Note Formatting of this n ote is different from the original. Images from the original note were not included. [facility] Palliative Care Transitions of [...] Chronic alcohol abuse who was admitted to [facility] on 10/20/23 with complain of nausea, vomiting, [...] has been signed, will request assistance from manager social responsibility - discussed CPR, intubation, vent - patient [...] SIGNED: ERNESTINE MARTIN MD 10/26/2023, 9:32 AM [facility] 10-26-2023 Consult note Associated Order (s): IP [...] has been signed, will request assistance from manager social responsibility - discussed CPR, intubation, vent - patient [...] Chronic alcohol abuse who was admitted to [facility] on 10/20/23 with complain of nausea, vomiting, [...] syndrome Cirrhosis (HCC) Dehydration 12/22/22-12/26/22 admitted to [facility] Depression Diabetes mellitus (HCC) Gout Hepatitis C Hypertension Hyponatremia Hypothyroidism MCC prescription opiate use Nausea and vomiting 12/22/22-12/26/22 admitted at [facility] Pain management Sleep apnea noncompliant with device [...] other systems were reviewed and are negative. [place] Symptom Assessment Score [place] Score Pain Score 9 Tiredness Score 6 Nausea Score 3 Depression Score 0 Anxiety Score 0 Drowsiness Score 0 Anorexia Score (0= eating well, 10= not eating) 6 Wellbeing Score (10= worst sense of well-being) 8 Constipation 0 Dyspnea Score (0= no shortness of breath) 0 FLACC Scale (For Pain Assessment of the Non-Verbal Patient) Patient verbal Assessed by: provider. Social history: [place] status: yes, served in [employer] Marital status: co-habitating Living status: with friend [...] - see A and P We discussed [id number]-am-cnca concerns identified by the patient/surrogate, including - see A and P Interventions reviewed: Resuscitation procedures (CPR), Mechanical ventilator support, and Diagnostic testing Advance Care Planning Documents: Healthcare Power of Tanker Serviceman: Not completed Financial Power of Tanker Serviceman: Other Unknown Living Will: Not completed Code Status: Full Code In addition to the time spent evaluating and managing the patient's medical diagnoses above, 15 minutes of this encounter was spent discussing advanced care planning documented above. Please bill [id number] for 16-46 minutes and add additional [phone] for >46 minutes. Family Meeting: Participants: patient [...] hospice appropriate? TBD Transition Note Initiated: yes. [facility] [employer] Phone: 10-26-2023 Consult note Associated Order (s): [...] has been signed, will request assistance from manager social responsibility - discussed CPR, intubation, vent - patient [...] Chronic alcohol abuse who was admitted to [facility] on 10/20/23 with complain of nausea, vomiting, [...] History: Diagnosis Date Acid reflux Alcoholism (CMS/HCC) ([facility]) Anxiety Back pain Chronic pain syndrome Cirrhosis (HCC) Dehydration 12/22/22-12/26/22 admitted to [facility] Depression Diabetes mellitus (HCC) Gout Hepatitis C Hypertension Hyponatremia Hypothyroidism MCC prescription opiate use Nausea and vomiting 12/22/22-12/26/22 admitted at [facility] Pain management Sleep apnea noncompliant with device [...] other systems were reviewed and are negative. [place] Symptom Assessment Score [place] Score Pain Score 9 Tiredness Score 6 Nausea Score 3 Depression Score 0 Anxiety Score 0 Drowsiness Score 0 Anorexia Score (0= eating well, 10= not eating) 6 Wellbeing Score (10= worst sense of well-being) 8 Constipation 0 Dyspnea Score (0= no shortness of breath) 0 FLACC Scale (For Pain Assessment of the Non-Verbal Patient) Patient verbal Assessed by: provider. Social history: [place] status: yes, served in [employer] Marital status: co-habitating Living status: with friend [...] - see A and P We discussed [id number] concerns identified by the patient/surrogate, including - see A and P Interventions reviewed: Resuscitation procedures (CPR), Mechanical ventilator support, and Diagnostic testing Advance Care Planning Documents: Healthcare Power of Tanker Serviceman: Not completed Financial Power of Tanker Serviceman: Other Unknown Living Will: Not completed Code Status: Full Code In addition to the time spent evaluating and managing the patient's medical diagnoses above, 15 minutes of this encounter was spent discussing advanced care planning documented above. Please bill [id number] for 16-46 minutes and add additional [phone] for >46 minutes. Family Meeting: Participants: patient [...] is a 63-year-old white male presented to [facility] ER 10/20/2023 with complaints of nausea, vomiting, [...] mellitus, gout, hepatitis C, hypertension, hyponatremia, hypothyroidism, chcf prescription opioid use, nausea and vomiting, pain [...] lives in the home environment assisted by international account executive family members. Objective examination shows middle-aged white [...] monitor. Extensive discussion with patient and staff developer. 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 He was having frequent falls at home prior to that admission. Unfortunately, it seems he left AMA from that facility within a day or so and resumed drinking immediately. It seems his family brought him back to the ED. 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 Detoxifications: several at [facility] but usually leaves [place] 12 Step Meetings: denies. Medication Assisted Treatment: [...] syndrome Cirrhosis (HCC) Dehydration 12/22/22-12/26/22 admitted to [facility] Depression Diabetes mellitus (HCC) Gout Hepatitis C Hypertension Hyponatremia Hypothyroidism MCC prescription opiate use Nausea and vomiting 12/22/22-12/26/22 admitted at [facility] Pain management Sleep apnea noncompliant with device [...] min Stress: No Stress Concern Present (04/03/2023) [place] [employer] - Occupational Stress Questionnaire [...] 10/20/2023 [facility] NI : 1960 [id number] Exam Date/Time: 10/20/2023 17:10 Procedure: XR CHEST [...] 392 ms QTC Interval 503 ms P [place] 0 degrees QRS [place] -57 degrees T Wave [place] 6 degrees LA Interval 127 ms COVID-19, Flu A/B, and [...] of visit. documented in this encounter [facility] 10-26-2023 Note Formatting of this n [...] of Stay (Days): 6 GMLOS: 4.[address] [facility] 10-23-2023 Hospital Discharge instructions Maxwell Hinson MD - 10/23/2023 10:37 AM EST Images from the original note were not included. [facility] PROGRAMS Addiction Medicine Intensive Outpatient Program [place] ([facility]): [phone] [place]: [phone] [place]: [phone] Behavioral Health Intensive Outpatient Program [place] ([facility]): [phone] [place]: [phone] First Step [place] ([facility]): [phone] [place]: [phone] Partial Hospitalization Program [place] ([facility]): [phone] Traumatic Stress Center [place] ([facility]): [phone] Vivitrol Clinic [place] ([facility]): [phone] Alcoholics Anonymous Meetings [email or web address] [address] [place] [address], [address], [place] [address] Mónica Anders RN - 10/26/2023 7:34 PM EST AnastasiaContinuity of Care Form Patient Name: Woody Ni : 1960 Admit date: 10/20/2023 Discharge date: [id number] Code Status Order: Full Code Advance Directives: [...] Minimal assistance Toileting Minimal assistance Feeding 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 Minimal assistance Med Delivery yes Wound Care [...] Discharging to Facility/ Agency Name: [facility] Address:[address] [place] [address] Dialysis Facility (if applicable) Name: Address: Dialysis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 patient/family: Yes Payer Name: [employer]/ Medicaid secondary : Yes (Is not Active [...] Quezada and uses the [facility] in [place] as his pharmacy. He is a [place] but [place] in the [place]. The patient reports that his [...] He notes he recently was sent to [facility] for some short term rehab. Chart review reveals he was just sent to the facility on 06/26. He notes he left the facility as they ran out of his Phenobarbitol. He was sent to the facility skilled under his [employer] insurance. The patient has been seen again by therapy and HHC has been recommended. The patient has voiced that he desires Residential Treatment for his ETOH. S/W will work to see if patient can get into a facility from here. 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 Ophelia Ramos APRN, REGULATORY SERVICES CONSULTANT [facility] [facility], [facility] [phone] office Associated attestation - Kennedi Pérez MD - 07/01/2023 3:34 PM EDT Seen and examined. Agree with above A and p. Hyponatremia responding to volume. Borderline rapid overcorrection of Na, hold IVF. Periodic Na checks throughout the rest of the day to trend Na. Alcohol cessation counseling. [facility] 07-01-2023 History and physical note Department [...] himself. He apparently signed out AMA from [facility] and then started drinking again. He states they wouldn't give him phenobarb there his workup today shows a sodium of 119 he is being admitted for further treatment Past Medical History: Past Medical History: Diagnosis Date Acid reflux Alcoholism (CMS/HCC) (HCC) Anxiety Back pain Chronic pain syndrome Cirrhosis (HCC) Dehydration 12/22/22-12/26/22 admitted to [facility] Depression Diabetes mellitus (HCC) Gout Hepatitis C Hypertension Hyponatremia Hypothyroidism watermelon inspector prescription opiate use Nausea and vomiting 12/22/22-12/26/22 admitted at [facility] Pain management Sleep apnea noncompliant with device [...] min Stress: No Stress Concern Present (04/03/2023) [place] [employer] - Occupational Stress Questionnaire [...] KACIE BENZ DO 07/01/23 9:[address] [facility] 07-01-2023 History and physical note Department [...] himself. He apparently signed out AMA from [facility] and then started drinking again. 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 06-30-2023 Note NOTE: This result is for medical treatment only. Analysis performed using non-forensic procedures. [facility] 06-30-2023 Emergency department Note Pt to CT Alea Okeefe RN 06/30/231747 [facility] 06-30-2023 Emergency department Note Pt to [...] syndrome Cirrhosis (HCC) Dehydration 12/22/22-12/26/22 admitted to [facility] Depression Diabetes mellitus (HCC) Gout Hepatitis C Hypertension Hyponatremia Hypothyroidism MCC prescription opiate use Nausea and vomiting 12/22/22-12/26/22 admitted at [facility] Pain management Sleep apnea noncompliant with device [...] min Stress: No Stress Concern Present (04/03/2023) [place] [employer] - Occupational Stress Questionnaire [...] with increasing falls. Was recently sent to [facility] where he left on his own. Pt admits to drinking a case of beer daily. States he is currently drunk. Pt has generalized bruising to whole body from previous falls. Visitor with pt states pt hit his head last night with fall, no LOC. Not on blood thinners. documented in this encounter [facility] 06-30-2023 Emergency department Triage note Pt presents with increasing falls. Was recently sent to [facility] where he left on his own. Pt admits to drinking a case of beer daily. States he is currently drunk. Pt has generalized bruising to whole body from previous falls. Visitor with pt states pt hit his head last night with fall, no LOC. Not on blood thinners. 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 05-26-2023 Telephone encounter Note S: Patient's called to cancel appointment. B: Onset of symptoms/concern 05/26/2023 at 08;00 A: Pt has no transportation to appointment. R: Please call pt back at [phone] to reschedule. Appointment cancelled. Reason for Disposition [...] Protocols used: Information Only Call - No [id number] [facility] 05-26-2023 Miscellaneous Notes S: Patient's called to cancel appointment. B: Onset of symptoms/concern 05/26/2023 at 08;00 A: Pt has no transportation to appointment. R: Please call pt back at [phone] to reschedule. Appointment cancelled. Reason for Disposition [...] Protocols used: Information Only Call - No [id number] documented in this encounter [facility] 04-15-2023 History of Present illness Narrative [...] min Stress: No Stress Concern Present (04/03/2023) [place] [employer] - Occupational Stress Questionnaire 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 prescription opiate use Nausea and vomiting 12/22/22-12/26/22 admitted at [facility] Pain management Sleep apnea noncompliant with device [...] dependency program which is offered via the [facility]. FLAVIO SHERMAN MD Addiction Medicine 04/15/2023 at 12:03 PM -35- minutes were spent reviewing the patient's records, evaluating the patient, entering orders, coordinating care with the treatment team, and creating a progress note. Narrative portions of the note are written utilizing [employer] software. While every effort is made to dictate clearly and proofread, errors in the dictation may still occur. If there are any questions regarding the dictation please do not hesitate to contact the author. [facility] Progress Note Subjective/ 63 [...] if possible 2/2 hypomagnesemia D/w Dr Koenig [facility] No further changes Ok for discharge planning from renal standpoint, outpatient BMP ordered and needs close follow up with nephrology in 1 week Will follow. Thank you for the consult and the opportunity to participate in the care of this patient. Please do not hesitate to call with any questions or concerns. Ophelia Ramos APRN, REGULATORY SERVICES CONSULTANT [facility], [facility] [phone] office [facility] [place] [facility] Progress Note Subjective/ 63 y.o. year [...] any questions or concerns. Ophelia Ramos, LEAH, REGULATORY SERVICES CONSULTANT [facility], [facility] [phone] office Associated attestation - Kennedi Pérez MD - 04/14/2023 4:52 PM EDT I have reviewed the above assessment and plan with the MANAGER SOFTWARE. I agree with above note. Hyponatremia +, worsening. Needs to eat more and have nausea controlled. NS x 500 ml today. Will not increase sodium tablets as that will worsen BP and volume status Okay to dc from renal standpoint as well as nausea will be taken care of outpatient. Complicated MDM. Images from the original note were not included. Hospitalist Progress Note 04/14/[id number]: Please secure chat me for patient care issues. [phone]: Please secure chat [facility] Hospitalist for any issues. Subjective: Admit Date: 04/09/2023 PCP: Jani Quezada Room#: [id number] A Chief complaint: poor oral intake Interval History: Poor oral intake. Nausea +, no vomiting. Afebrile. No abdominal pain. 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 has a past surgical history that includes Back surgery; Laminectomy; Vesuv[place] tooth extraction; lap,cholecystectomy (historical) (N/A, 01/05/2023); and [...] base quad cane Transfer Assistance: Independent [employer] Adviser: No Occupation: On disability Objective Gross Assessment: [...] 9 Unique Griffin OT Physical Therapy Facility/Department: [facility] Physical Therapy Initial Evaluation NAME: Woody Ni [...] no concerns for returning home. Pt declining [facility] PT services. Will discharge at this [...] (HCC), Gout, Hepatitis C, Hypertension, Hyponatremia, Hypothyroidism, MCC prescription opiate use, Nausea and vomiting, Pain management, and Sleep apnea. has a past surgical history that includes Back surgery; Laminectomy; Vesuv[place] tooth extraction; lap,cholecystectomy (historical) (N/A, 01/05/2023); and [...] base quad cane Transfer Assistance: Independent [employer] Adviser: No Occupation: On disability Objective Observation/Palpation Posture: [...] 1: equal step length, reciprocal stepping, slow heide Quality of Gait Comment 1: forward bent [...] any questions or concerns. Ophelia Ramos, LEAH, REGULATORY SERVICES CONSULTANT [facility], [facility] [phone] office Associated attestation - Kennedi Pérez MD - 04/13/2023 3:13 PM EDT I have reviewed the above assessment and plan with the MANAGER SOFTWARE. I agree with above note. Hyponatremia, hypomagnesemia, [...] detoxification perspective. 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 FLAVIO SHERMAN MD Addiction Medicine 04/13/2023 at 12:48 PM -35- minutes were spent reviewing the patient's records, evaluating the patient, entering orders, coordinating care with the treatment team, and creating a progress note. Narrative portions of the note are written utilizing [employer] software. While every effort is made to dictate clearly and proofread, errors in the dictation may still occur. If there are any questions regarding the dictation please do not hesitate to contact the author. Images from the original note were not included. Hospitalist Progress Note 04/13/2023 [phone]: Please secure chat sc for patient care issues. [phone]: Please secure chat [facility] Hospitalist for any issues. Subjective: Admit Date: 04/09/2023 PCP: Jani Quezada Room#: [id number] A Chief complaint: Having nausea since last night, Zofran helping Interval History: No overnight issues. Denies chest pain, sob, abdominal pain, diarrhea, constipation, fevers, or chills. Adult diet Regular; 1200 ml @[id number]@ 24HR INTAKE/OUTPUT: Intake/Output Summary (Last 24 hours) at 04/13/2023 1217 Last data filed at 04/13/2023 1052 Gross per 24 hour Intake 540 ml Output -- Net 540 ml Past Medical History: Past Medical History: Diagnosis Date Acid reflux Alcoholism (CMS/HCC) (HCC) Anxiety Back pain Chronic pain syndrome Cirrhosis (HCC) Dehydration 12/22/22-12/26/22 admitted to [facility] Depression Diabetes mellitus (HCC) Gout Hepatitis C Hypertension Hyponatremia Hypothyroidism MCC prescription opiate use Nausea and vomiting 12/22/22-12/26/22 admitted at [facility] Pain management Sleep apnea noncompliant with device [...] effects, await PT and OT assessments with [facility] facility placement -am labs, replace lytes prn -increase activity -DVT prophylaxis: [] Lovenox [] Heparin [] SCDs [x] Encourage ambulation [] Already on Anticoagulation Anticipated Discharge - Date -April 14 or - Location -[facility] facility - Pending the following -bed availability [...] LAURA STEVENS MD, Division of Hospitalist Medicine [facility] PAGER: Epic chat [facility] [...] note were not included. Hospitalist Progress Note 04/12/[id number]: Please secure chat me for patient care issues. [phone]: Please secure chat [facility] Hospitalist for any issues. Subjective: Admit Date: 04/09/2023 PCP: Jani Quezada Room#: B2-260/[id number] A Chief complaint: Hyponatremia and diarrhea improving Interval History: No overnight issues. Denies chest pain, sob, nausea, vomiting, constipation, fevers, or chills. Adult diet Regular; 1200 ml @[id number]@ 24HR INTAKE/OUTPUT: Intake/Output Summary (Last 24 hours) at 04/12/2023 1217 Last data filed at 04/11/2023 1232 Gross per 24 hour Intake 100 ml Output -- Net 100 ml Past Medical History: Past Medical History: Diagnosis Date Acid reflux Alcoholism (CMS/HCC) (HCC) Anxiety Back pain Chronic pain syndrome Cirrhosis (HCC) Dehydration 12/22/22-12/26/22 admitted to [facility] Depression Diabetes mellitus (HCC) Gout Hepatitis C Hypertension Hyponatremia Hypothyroidism MCC prescription opiate use Nausea and vomiting 12/22/22-12/26/22 admitted at [facility] Pain management Sleep apnea noncompliant with device [...] LAURA STEVENS MD, Division of Hospitalist Medicine [employer] [facility] [employer] PAGER: Epic chat [facility] Progress Note Subjective/ 63 [...] note were not included. Hospitalist Progress Note 04/11/[id number]: Please page me ([phone]) for patient care issues. [phone]: Please page [facility] Hospitalist for any issues. Subjective: Admit Date: [...] or chills. Adult diet Regular; 1200 ml @[id number]@ 24HR INTAKE/OUTPUT: Intake/Output Summary (Last 24 hours) at 04/11/2023 1308 Last data filed at 04/11/2023 1232 Gross per 24 hour Intake 1287 ml Output -- Net 1287 ml Past Medical History: Past Medical History: Diagnosis Date Acid reflux Alcoholism (CMS/HCC) (HCC) Anxiety Back pain Chronic pain syndrome Cirrhosis (HCC) Dehydration 12/22/22-12/26/22 admitted to [facility] Depression Diabetes mellitus (HCC) Gout Hepatitis C Hypertension Hyponatremia Hypothyroidism MCC prescription opiate use Nausea and vomiting 12/22/22-12/26/22 admitted at [facility] Pain management Sleep apnea noncompliant with device [...] Started on thiamine/folate and PRN ativan per [facility] protocol. Addiction med consulted/following. He had made a commitment to follow-up with [facility] virtual program. Hopefully he will return [...] MD Division of Hospitalist Medicine Inpatient Medical Services/[facility] [facility]: Epic chat documented in this encounter [facility] 04-15-2023 Note Formatting of this n [...] of Stay (Days): 5 GMLOS: 2.[address] [facility] 04-15-2023 Note Formatting of this n [...] Length of Stay (Days): 5 GMLOS: 2.6 [facility] 04-15-2023 Miscellaneous Notes Images from the original [...] on HCPOA and updated that will inform manager social responsibility on Thursday that he would like to complete. Hcpoa paperwork. . Care Managment Initial Assessment Date: 04/10/2023 Patient Name: Woody Ni : 1960 Patient Information Source of Information: Patient Cognition/Language: WFL - Within Functional Limits Permission given to speak with patient service liaison representative/caregiver as indicated: Yes (Kingsley Carl (Spouse) [phone]) Confirmation of Payer with patient/family: Yes Payer Name: Medicare A&B,, 2 Medicaid [place]: Yes (does not follow with [facility]) Confirmation [...] Coverage: Yes Pharmacy Used: [facility] in [place] Medication Management: Independent Transportation/Shopping: Assistance Provider Transportation/Shopping [...] Scott RN documented in this encounter [facility] 04-15-2023 Hospital course Narrative Discharge Summary [...] consulted , detoxed - follow up with [facility] virtual program. Alcoholic liver disease /alcoholic cirrhosis [...] Your Medications These medications were sent to [facility] [address] [place] [address] Hours: Thursday to Thursday 10 am to 6 pm famotidine 20 MG tablet folic acid 1 MG tablet Lidocaine 4 % patch ondansetron ODT 4 MG disintegrating tablet thiamine 100 MG tablet DIET: Adult diet Regular; 1200 ml ACTIVITY: No restriction. COMPLEXITY OF FOLLOW UP: [x] Moderate Complexity: follow up within 7-14 calendar days (85634) [] Severe Complexity: follow up within 7 calendar days (20803) FOLLOW UP TESTING, PENDING RESULTS OR REFERRALS AT TRANSITIONAL CARE VISIT: [x] Yes [] No PENDING STUDIES: DISPOSITION: Home FACILITY/HOME CARE AGENCY NAME: Follow up with Jani Quezada [address] [facility] [address] Follow up in 1 week(s) cbc/CMP on follow up Ophelia Ramos, IT SOLUTIONS ARCHITECT - REGULATORY SERVICES CONSULTANT [address] [facility] [address] Follow up in 1 week(s) follow [...] 11:35 AM documented in this encounter [facility] 04-15-2023 Hospital Discharge instructions Ced Koenig [...] (72.6 kg) Mental Status: {ISAIAS Patient Mental Status:68135} IV Access: {ISAIAS IV Access:57374} Nursing Mobility/ADLs: Walking {GORDON ADL:78494::"Independent"} Transfer {GORDON ADL:64326::"Independent"} Bathing {GORDON ADL:99509::"Independent"} Dressing {GORDON ADL:41593::"Independent"} Toileting {GORDON ADL:19349::"Independent"} Feeding {GORDON ADL:37520::"Independent"} Real Estate Office Supervisor {GORDON ADL:88447::"Independent"} Med Delivery {yes/no:36049} Wound Care Documentation and Therapy: Wound/Incision 01/05/23 Incision Abdomen - Upper Quadrant (Active) Number of days: 99 Elimination: Continence: Bowel: {yes/no:37190} Bladder: {yes/no:84687} Urinary Catheter: {ISAIAS Urinary Catheter:65739} Colostomy/Ileostomy/Ileal Conduit: {YES / NO:} Date of Last BM: Intake/Output Summary (Last 24 hours) at 04/15/2023 0932 Last data filed at 04/14/2023 1100 Gross per 24 hour Intake 320 ml Output -- Net 320 ml I/O last 3 completed shifts: In: 420 (5.8 mL/kg) [P.O.:320; I.V.:100 (1.4 mL/kg)] Out: 50 (0.7 mL/kg) [Urine:50 (0 mL/kg/hr)] Weight: 72.6 kg Safety Concerns: {ISAIAS Safety Concerns:21139} Impairments/Disabilities: {ISAIAS Impairments/Disabilities:28636} Nutrition Therapy: Current Nutrition Therapy: {ISAIAS Diet List:93930} Routes of Feeding: {routes of feedin} Liquids: {liquid consistency:23842} Daily Fluid Restriction: {daily fluid restriction:43581} Last Modified Barium Swallow with Video (Video Swallowing Test): {done not done:80684} Treatments at the Time of Hospital Discharge: Respiratory Treatments: Oxygen Therapy: {Therapy; copd oxygen:01599} Ventilator: {ISAIAS Ventilator:96928} Rehab Therapies: {GEN THERAPY DISCIPLINE SCAL:4629577} Weight Bearing Status/Restrictions: {POD WEIGHT BEARIN} Other Medical Equipment (for information only, NOT a DME order): {Assistive Devices DME:24703} Other Treatments: Patient's personal belongings (please select all that are sent with patient): {ISAIAS Patient Belongings:38717} RN SIGNATURE: {E-signature:70141} CASE MANAGEMENT/SOCIAL WORK SECTION Inpatient Status Date: Readmission Risk Assessment Score: @READMISSIONRISKDETAILS@ Discharging to Facility/ Agency Name: Address: Phone: Fax: Dialysis Facility (if applicable) Name: Address: Dialysis Schedule: Phone: Fax: Sewer Pipe Press Operator/Acid Leveler signature: {E-signature:96102} PHYSICIAN SECTION Prognosis: {Rehab Prognosis:28960} Condition at Discharge: {Patient Condition:55277} Rehab Potential (if transferring to Rehab): {Rehab Prognosis:69629} Recommended Labs or Other Treatments After Discharge: Physician Certification: I certify the above information and transfer of Woody Ni is necessary for the continuing treatment of the diagnosis listed and that he requires {ISAIAS Level of Care:41355} for {greater less than:36194} 30 days. Update Admission H&P: {ISAIAS Changes in H&P:53770} PHYSICIAN SIGNATURE: {E-signature:96523} The following attachments cannot be sent through Care Everywhere.Hyponatremia (Hebrew)documented in this encounter [facility] 04-14-2023 Note Formatting of this n [...] of Stay (Days): 4 GMLOS: 2.[address] [facility] 04-14-2023 Note Formatting of this n [...] Length of Stay (Days): 4 GMLOS: 2.6 [facility] 04-13-2023 Plan of care note The patient [...] include continue current care plan. T [facility] 04-13-2023 Note Formatting of this n ote might be different from the original. Patient may be discharged in a.m. to home, once electrolytes stabilize and nausea controlled, did well with PT and OT. [facility] 04-13-2023 Note Formatting of this n ote might be different from the original. Patient may be discharged in a.m. to home, once electrolytes stabilize and nausea controlled, did well with PT and OT. [facility] 04-13-2023 Note Formatting of this n ote [...] Length of Stay (Days): 3 GMLOS: 2.6 [facility] 04-13-2023 Note Formatting of this n ote [...] Length of Stay (Days): 3 GMLOS: 2.6 [facility] 04-13-2023 Note Formatting of this n ote might be different from the original. Met with patient and his significant other this afternoon to complete HCPOA paperwork. Copies given to patient and his girfriend. Copy placed in the chart. [facility] 04-13-2023 Note Formatting of this n ote might be different from the original. Met with patient and his significant other this afternoon to complete HCPOA paperwork. Copies given to patient and his girfriend. Copy placed in the chart. [facility] 04-13-2023 Note Formatting of this n ote [...] print the paperwork and have it ready. [facility] 04-13-2023 Note Formatting of this n ote [...] print the paperwork and have it ready. [facility] 04-11-2023 Note Formatting of this n ote might be different from the original. Provided patient with informational booklet on HCPOA and updated that will inform manager social responsibility on Thursday that he would like to complete. Hcpoa paperwork. . [facility] 04-11-2023 Note Formatting of this n ote might be different from the original. Provided patient with informational booklet on HCPOA and updated that will inform manager social responsibility on Thursday that he would like to complete. Hcpoa paperwork. . 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 Most recently admitted to [facility] 04/02-04/07/23 requesting dextox, noted SHE on admit: 0.352. Currently presents to [facility] with inability to tolerate oral intake, nausea, emesis, and watery stooling. + endorses achy pain throughout his abdomen (which appears to be a chronic issue); of note opioids ceased by pain management ~10 days REPLENISHER due to on-going alcohol abuse. On admit, reports drinking two beers REPLENISHER. Significant labs on admit: Na+(124), AST(103), ALT(58), [...] 100% ensure shake. Poor PO since leaving [facility] less than one week ago: I didn t eat when I was at [facility], and I didn t eat at home [...] On: Kcal/kg Weight Used for Energy Requirements: [place] Weight for Energy Calculation (kg): 75 kg Total Energy Requirements (kcals/day): 3045-7874 (25-30 kcal/kg IBW) Weight Used for Protein Requirements: [place] Weight in Kg Used for Protein Requirements: 75 kg Estimated Total Protein (g/day): 75-113 (1.0-1.5 g protien/kg IBW) Estimated Daily Total Fluid (ml/day): per MD Nutrition Related Findings: Pranav score=18, +multiple scratches and scabs. No edema noted. +I/O balance. Meds and labs reviewed. 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 Most recently admitted to [facility] 04/02-04/07/23 requesting dextox, noted SHE on admit: 0.352. Currently presents to [facility] with inability to tolerate oral intake, nausea, emesis, and watery stooling. + endorses achy pain throughout his abdomen (which appears to be a chronic issue); of note opioids ceased by pain management ~10 days REPLENISHER due to on-going alcohol abuse. On admit, reports drinking two beers REPLENISHER. Significant labs on admit: Na+(124), AST(103), ALT(58), [...] 100% ensure shake. Poor PO since leaving [facility] less than one week ago: I didn t eat when I was at [facility], and I didn t eat at home [...] On: Kcal/kg Weight Used for Energy Requirements: [place] Weight for Energy Calculation (kg): 75 kg Total Energy Requirements (kcals/day): 7094-6048 (25-30 kcal/kg IBW) Weight Used for Protein Requirements: [place] Weight in Kg Used for Protein Requirements: 75 kg Estimated Total Protein (g/day): 75-113 (1.0-1.5 g protien/kg IBW) Estimated Daily Total Fluid (ml/day): per MD Nutrition Related Findings: Pranav score=18, +multiple scratches and scabs. No edema noted. +I/O balance. Meds and labs reviewed. +Severe PCM on admit to [facility] earlier in the month Wound Type: None [...] 177# 01/28/23) % Weight Change (Calculated): -6.1 [place] Body Weight (lbs) (Calculated): 166 lbs [place] Body Weight (Kg) (Calculated): 75 kg % [place] Body Weight (Calculated): 104.1 % BMI (kg/m2) [...] Nutrition Supplement Mona Gardiner RDN, LDN, Contact: *[phone] Associated Order(s): IP CONSULT TO ADDICTION MEDICINE Images from the original note were not included. Addiction Medicine Patient: Woody Ni Admit Date: 04/09/2023 Primary Care Physician: Jani Quezada History of Present Illness The patient is a 63-year-old male presenting to [facility] for stabilization of alcohol dependence/withdrawal. Patient is known to chemical dependency services, and was recently detoxified at [facility] from April 03 to April 07. 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 Hopefully he will return to this program after he is released from the hospital. We will follow FLAVIO SHERMAN MD Addiction Medicine 04/10/2023 at 1:49 PM -55- minutes were spent reviewing the patient's records, evaluating the patient, entering orders, coordinating care with the treatment team, and creating a progress note. Narrative portions of the note are written utilizing [employer] software. 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 due to abdominal pain, N/V and watery [...] syndrome Cirrhosis (HCC) Dehydration 12/22/22-12/26/22 admitted to [facility] Depression Diabetes mellitus (HCC) Gout Hepatitis C Hypertension Hyponatremia Hypothyroidism MCC prescription opiate use Nausea and vomiting 12/22/22-12/26/22 admitted at [facility] Pain management Sleep apnea noncompliant with device [...] confusion. ROS: See palliative care ROS/ESAS below; [place] Symptom Assessment Score [place] Score Pain Score "High" Tiredness Score 5 Nausea Score 0 Depression Score 0 Anxiety Score 0 Drowsiness Score 0 Anorexia Score (0= eating well, 10= not eating) 0 Wellbeing Score (10= worst sense of well-being) 5 Constipation 0 Dyspnea Score (0= no shortness of breath) 0 Assessed by: patient and provider. 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 during their admission to [facility]. They currently have no uncontrolled symptoms and have established goals of care and we have signed off of their case. The patient has established follow-up with chronic pain management. Associated Order(s): IP CONSULT TO NEPHROLOGY [facility] Consult Note Reason for [...] the last 10 years (of note: in [facility], he followed with surgery and had cholecystectomy/liver biopsy in december of this year - biopsy consistent with liver cirrhosis). Denies issues with UOP. No recent falls. No use of thiazides. Daily smoker +ve. 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 Ophelia Ramos APRN, REGULATORY SERVICES CONSULTANT [facility], [facility] [phone] office Associated attestation - Kennedi Pérez MD - 04/10/2023 6:35 PM EDT Seen and examined. Agree with above A and p. Patient established with me outpatient. H/o DENNYS 12/2022 when we saw him, recovered from DENNYS well. Here with hyponatremia, better with IVF. FR and higher protein intake for now. Will follow. documented in this encounter [facility] 04-10-2023 Consult note Associated Order (s): IP CONSULT TO ADDICTION MEDICINE Images from the original note were not included. Addiction Medicine Patient: Woody Ni Admit Date: 04/09/2023 Primary Care Physician: Jani Quezada History of Present Illness The patient is a 63-year-old male presenting to [facility] for stabilization of alcohol dependence/withdrawal. Patient is known to chemical dependency services, and was recently detoxified at [facility] from April 03 to April 07. 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 Hopefully he will return to this program after he is released from the hospital. We will follow FLAVIO SHERMAN MD Addiction Medicine 04/10/2023 at 1:49 PM -55- minutes were spent reviewing the patient's records, evaluating the patient, entering orders, coordinating care with the treatment team, and creating a progress note. Narrative portions of the note are written utilizing [employer] software. While every effort is made to dictate clearly and proofread, errors in the dictation may still occur. If there are any questions regarding the dictation please do not hesitate to contact the author. [facility] 04-10-2023 Consult note Associated Order (s): IP CONSULT TO PALLIATIVE CARE Images from the original note were not included. Palliative Care Initial Consult Chief Complaint: Woody Ni is a 63 y.o. male with chief complaint of hyponatremia, abdominal pain Palliative Care provider will follow-up on 04/13/23. 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 ROS: See palliative care ROS/ESAS below; [place] Symptom Assessment Score [place] Score Pain Score "High" Tiredness Score 5 Nausea Score 0 Depression Score 0 Anxiety Score 0 Drowsiness Score 0 Anorexia Score (0= eating well, 10= not eating) 0 Wellbeing Score (10= worst sense of well-being) 5 Constipation 0 Dyspnea Score (0= no shortness of breath) 0 Assessed by: patient and provider. 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 during their admission to [facility]. They currently have no uncontrolled symptoms and have established goals of care and we have signed off of their case. The patient has established follow-up with chronic pain management. [facility] Work Phone: 04-10-2023 Consult note Associated Order (s): IP CONSULT TO NEPHROLOGY [facility] Consult Note Reason for [...] the last 10 years (of note: in [facility], he followed with surgery and had cholecystectomy/liver biopsy in december of this year - biopsy consistent with liver cirrhosis). Denies issues with UOP. No recent falls. No use of thiazides. Daily smoker +ve. Past Medical History: Past Medical History: Diagnosis Date Acid reflux Alcoholism (CMS/HCC) (HCC) Anxiety Back pain Chronic pain syndrome Cirrhosis (HCC) Dehydration 12/22/22-12/26/22 admitted to [facility] Depression Diabetes mellitus (HCC) Gout Hepatitis C Hypertension Hyponatremia Hypothyroidism MCC prescription opiate use Nausea and vomiting 12/22/22-12/26/22 admitted at [facility] Pain management Sleep apnea noncompliant with device [...] min Stress: No Stress Concern Present (04/03/2023) [place] [employer] - Occupational Stress Questionnaire [...] any questions or concerns. Ophelia Ramos APRN, REGULATORY SERVICES CONSULTANT [facility], [facility] [phone] office Associated attestation - Kennedi Pérez MD - 04/10/2023 6:35 PM EDT Seen and examined. Agree with above A and p. Patient established with me outpatient. H/o DENNYS 12/2022 when we saw him, recovered from DENNYS well. Here with hyponatremia, better with IVF. FR and higher protein intake for now. Will follow. [facility] 04-10-2023 Note Formatting of this n ote might be different from the original. Care Managment Initial Assessment Date: 04/10/2023 Patient Name: Woody Ni : 1960 Patient Information Source of Information: Patient Cognition/Language: WFL - Within Functional Limits Permission given to speak with patient service liaison representative/caregiver as indicated: Yes (Kingsley Carl (Spouse) [phone]) Confirmation of Payer with patient/family: Yes Payer [...] Coverage: Yes Pharmacy Used: [facility] in [place] Medication Management: Independent Transportation/Shopping: Assistance Provider Transportation/Shopping [...] will continue to follow. Monica [facility] 04-10-2023 Note Formatting of this n ote might be different from the original. Care Managment Initial Assessment Date: 04/10/2023 Patient Name: Woody Ni : 1960 Patient Information Source of Information: Patient Cognition/Language: WFL - Within Functional Limits Permission given to speak with patient service liaison representative/caregiver as indicated: Yes (Kingsley Carl (Spouse) [phone]) Confirmation of Payer with patient/family: Yes Payer Name: Medicare A&B,, 2 Medicaid [place]: Yes (does not follow with [facility]) Confirmation [...] Coverage: Yes Pharmacy Used: [facility] in [place] Medication Management: Independent Transportation/Shopping: Assistance Provider Transportation/Shopping [...] will continue to follow. Monica [facility] 04-10-2023 History and physical note Attending History [...] the last 10 years (of note: in [facility], he followed with surgery and had [...] syndrome Cirrhosis (HCC) Dehydration 12/22/22-12/26/22 admitted to [facility] Depression Diabetes mellitus (HCC) Gout Hepatitis C Hypertension Hyponatremia Hypothyroidism MCC prescription opiate use Nausea and vomiting 12/22/22-12/26/22 admitted at [facility] Pain management Sleep apnea noncompliant with device [...] min Stress: No Stress Concern Present (04/03/2023) [place] [employer] - Occupational Stress Questionnaire [...] beer. Start thiamine/folate and PRN ativan per [facility] protocol. Consult to addiction med. # Chronic [...] diet, Start thiamine/folate and PRN ativan per [facility] protocol. Consult to addiction med. Check daily [...] by @MEMDNR@ on @TDNR@ at @NOWNR@ [facility] 04-10-2023 History and physical note Attending [...] the last 10 years (of note: in [facility], he followed with surgery and had [...] syndrome Cirrhosis (HCC) Dehydration 12/22/22-12/26/22 admitted to [facility] Depression Diabetes mellitus (HCC) Gout Hepatitis C Hypertension Hyponatremia Hypothyroidism MCC prescription opiate use Nausea and vomiting 12/22/22-12/26/22 admitted at [facility] Pain management Sleep apnea noncompliant with device [...] min Stress: No Stress Concern Present (04/03/2023) [place] [employer] - Occupational Stress Questionnaire [...] beer. Start thiamine/folate and PRN ativan per [facility] protocol. Consult to addiction med. # Chronic [...] diet, Start thiamine/folate and PRN ativan per [facility] protocol. Consult to addiction med. Check daily [...] at @NOWNR@ documented in this encounter [facility] 04-10-2023 Emergency department Note Report to [facility]. Jere Dooley RN 04/10/[address] [facility] 04-10-2023 Emergency department Note Report to [facility] staff. Jere Dooley RN 04/10/23701 Jere Dooley RN 04/10/23 0122 Jere Dooley RN 04/10/23 0134 [facility] called for transport to [facility]. ETA of 3 hours. Jere Dooley RN 04/10/23 0044 Pt ambulatory to and from restroom independently. Pt had BM loose stool; specimen collected and sent to lab. Pt again refers to this RN as "babydoll" then states the traffic police officer is "going to come in here and [...] staff. Pt does appear intoxicated as well. corrections officer was notified and did speak with [...] Debora Watts RN 04/09/232056 Emergency Department Encounter [facility] ED Patient: Woody Ni : 1960 Date [...] I discussed with admitting Dr. Barker at [facility], accepts patient for telemetry admission, patient agreeable, stable for admission at this time. DIAGNOSIS: Hyponatremia, alcohol intoxication, transaminitis DISPOSITION: Admission at [facility] PRESCRIPTIONS: New Prescriptions No medications on file [...] for clarification. Richie Acosta MD Acute Care [facility] Richie Acosta MD 04/10/23 0240 Patient is here for abdominal pain. He was in the hospital recently for detox and left early for a birthday democrat. He states he has not ate in [...] and he was supposed to be at [facility]. Patient uncooperative with intake and would not answer questions directly. Call light within reach and blanket given for comfort. documented in this encounter [facility] 04-10-2023 Emergency department Note Jere Dooley RN 04/10/23 0122 eJre Dooley RN 04/10/[address] [facility] 04-10-2023 Emergency department Note [facility] called for transport to [facility]. ETA of 3 hours. Jere Dooley RN 04/10/[address] [facility] 04-09-2023 Emergency department Note Pt ambulatory to and from restroom independently. Pt had BM loose stool; specimen collected and sent to lab. Pt again refers to this RN as "chung" then states the traffic police officer is "going to come in here and beat me up" for saying that. Debora Watts RN 04/09/232221 [facility] 04-09-2023 Note NOTE: This result is for medical treatment only. Analysis performed using non-forensic procedures. [facility] 04-09-2023 Emergency department Note This RN [...] staff. Pt does appear intoxicated as well. corrections officer was notified and did speak with [...] RN 04/09/232052 Debora Watts RN 04/09/232056 [facility] 04-09-2023 Emergency department Triage note Patient is here for abdominal pain. He was in the hospital recently for detox and left early for a birthday democrat. He states he has not ate in [...] and he was supposed to be at [facility]. Patient uncooperative with intake and would not answer questions directly. Call light within reach and blanket given for comfort. [facility] 04-09-2023 Physician Emergency department Note Emergency Department Encounter [facility] ED Patient: Woody Ni : 1960 Date [...] I discussed with admitting Dr. Barker at [facility], accepts patient for telemetry admission, patient agreeable, stable for admission at this time. DIAGNOSIS: Hyponatremia, alcohol intoxication, transaminitis DISPOSITION: Admission at [facility] PRESCRIPTIONS: New Prescriptions No medications on file [...] provider for clarification. Richie Acosta MD Acute [facility] Richie Acosta MD 04/10/[address] [facility] 04-09-2023 Telephone encounter Note Called pt and left a VM requesting a callback to get him scheduled for a GI follow up. Callback number provided. [facility] 04-09-2023 Miscellaneous Notes Called pt and [...] chronic diarrhea documented in this encounter [facility] 04-09-2023 Telephone encounter Note Pt says he saw Dr Valdes in the hosp and was told to contact the office so he could be seen hernadno for a follow up. [facility] 04-07-2023 Nurse Note Patient discharge AVS reviewed with patient. Signature obtained. Patient educated on possible overdose due to lower tolerance. Patient understands. Patient denied having any SI/HI/AVH and any pain. 1245- Patient wheeled off unit via wheelchair by transport. [facility] 04-07-2023 Nurse Note Patient discharge AVS [...] for safety. documented in this encounter [facility] 04-07-2023 Note Formatting of this n ote might be different from the original. SHIPWRIGHT saw patient to discuss aftercare plans and treatment post discharge. Patient was reminded about virtual intake appointment with [facility] program on 04/08/2023 at 1:30 PM. SHIPWRIGHT explained that agency has sent a link via text messages on his phone. Patient denied current SI/HI/AVH. Patient reported that their son would be picking them up from the hospital and taking them back home. Patient denied needing anything further from SHIPWRIGHT at the time. SHIPWRIGHT informed patient's nurse about conversation. [facility] 04-07-2023 Note Formatting of this n ote might be different from the original. SHIPWRIGHT saw patient to discuss aftercare plans and treatment post discharge. Patient was reminded about virtual intake appointment with [facility] program on 04/08/2023 at 1:30 PM. SHIPWRIGHT explained that agency has sent a link via text messages on his phone. Patient denied current SI/HI/AVH. Patient reported that their son would be picking them up from the hospital and taking them back home. Patient denied needing anything further from [facility]WRIGHT at the time. SHIPWRIGHT informed patient's nurse about conversation. [facility] 04-07-2023 Miscellaneous Notes SHIPWRIGHT saw patient to discuss aftercare plans and treatment post discharge. Patient was reminded about virtual intake appointment with [facility] program on 04/08/2023 at 1:30 PM. SHIPWRIGHT explained that agency has sent a link via text messages on his phone. Patient denied current SI/HI/AVH. Patient reported that their son would be picking them up from the hospital and taking them back home. Patient denied needing anything further from SHIPWRIGHT at the time. GISSELL informed patient's nurse [...] Woody Ni Date of : 1960 MR: [id number] Appearance: Good eye contact Affect: Appropriate Behavior: [...] with concerns or questions. Inder Stein DO [facility] met with patient who was still agreeable to virtual IOP program with [facility] program. Patient signed MALINI. SHIPWRIGHT will send referral information for intake appointment. 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 Patient reports his drink became problematic within [...] abuse as an adult. Patient is a [employer] . Patient reports having a listed shortly after turning 18 years old. Patient reports he was stationed 5 miles from [facility] in -. Patient reports having an honorable discharge. Family Constellation/Childhood History: Patient reports he is currently living in [place] patient denies have any biological children. Patient reports having 3 stepchildren whom he has help to raise. [place] with his longtime girlfriend. Patient has a previous history of divorce. Patient reports that he has 2 sisters whom he maintains a relationship with. Patient reports that his mother . Patient reports his 86-year-old father currently lives with one of his sisters. Patient reports that he grew up in [place] by his biological mother and father. Patient denies any history of adolescent childhood trauma or abuse. 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 Patient is currently unemployed and receives SSI/SSD. Cultural/Spirituality/Leisure: Patient denies any cultural needs or concerns at the current time. Patient denies identify any christianity preference at current time. Patient is not attending services anywhere. Patient reports in his leisure time he enjoys watching [place] [employer] sports and football. Support Systems/Collateral Information: Patient [...] treatment due to transportation issues. Patient and SHIPWRIGHT discussed alternative options in the community that provide virtual assessment and IOP services. Patient is interested in the services and willing to engage in them. SHIPWRIGHT will assist patient with scheduling aftercare appointments. Patient encouraged to engage in activities that are offered and ways in the unit. Patient not report anything additional at current time. Patient encouraged to seek out [facility] unit staff should he identify any additional [...] for clarification. documented in this encounter [facility] 04-07-2023 Hospital course Narrative Physician Discharge Summary Patient ID: Woody Ni [id number] 63 y.o. 1960 Admit date: 04/02/2023 Discharge [...] National Suicide Prevention Hotline if needed at: 7-997-235-MMVC (3123) Please call the following number should you have questions regarding your discharge or aftercare appointments: [address] I spent total time 35 minutes counseling and coordinating care and provided discussion regarding the patient condition, diagnosis, symptoms signs and lab work, and treatment plan and options. Signed: ALBERTO PEREZ MD, MD 04/07/2023 11:11 AM documented in this encounter [facility] 04-07-2023 History of Present illness Narrative [...] There is a history of cirrhosis. GI design sales consultant did recommend outpatient EGD, colonoscopy and [...] min Stress: No Stress Concern Present (04/03/2023) [place] [employer] - Occupational Stress Questionnaire 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 prescription opiate use Nausea and vomiting 12/22/22-12/26/22 admitted at [facility] Pain management Sleep apnea noncompliant with device [...] for this [facility] FLAVIO SHERMAN MD Addiction Medicine 04/05/2023 at 1:32 PM -50-- minutes were spent reviewing the patient's records, evaluating the patient, entering orders, coordinating care with the treatment team, and creating a progress note. Narrative portions of the note are written utilizing [employer] software. While every effort is made to dictate clearly and proofread, errors in the dictation may still occur. If there are any questions regarding the dictation please do not hesitate to contact the author. Images from the original note were not included. [facility] Progress Note 6AM-6PM please message me via [employer] Secure Chat. 6PM-6AM please page [facility] - [facility] Oral Therapist ATT Woody Ni : 1960(63 y.o.) PCP: [...] diarrhea #AGMA -Improved on repeat BMP #HTN -REPLENISHER amlodipine, losartan #Hypothyroidism -REPLENISHER levothyroxine -TSH wnl DVT Prophylaxis: None Hospital [...] min Stress: No Stress Concern Present (04/03/2023) [place] [employer] - Occupational Stress Questionnaire [...] syndrome Cirrhosis (HCC) Dehydration 12/22/22-12/26/22 admitted to [facility] Depression Diabetes mellitus (HCC) Gout Hepatitis C Hypertension Hyponatremia Hypothyroidism MCC prescription opiate use Nausea and vomiting 12/22/22-12/26/22 admitted at [facility] Pain management Sleep apnea noncompliant with device [...] SARS-CoV-2 Antigen Negative Negative Blood gas, venous ([place]) Collection Time: 04/02/23 6:08 PM [...] portions of the note are written utilizing [employer] software. While every effort is made to [...] of health problems. Patient presented to the [facility] ER seeking alcohol detox. Alcohol use x40 plus years. Told by MD that he needs detox due to this liver issues and overall health. Was not interested in quitting or detox as recently as 03/10/23. Drinks 12 [place] Lights per day with last use 15 minutes REPLENISHER. Told another nurse that he drinks 42 [...] to family. Served 4 years in the [employer]. Strengths include health insurance coverage. Barriers include extensive medical history and long history of alcohol use. Recommend that patient be admitted to [address] for inpatient detox. documented in this encounter [facility] 04-07-2023 Nurse Note Patient alert and oreinted during morning assessment. Patient denied having any SI/HI/AVH. Patient complains of 10/10 headache, and nausea. Patient given PRN tylenol at 0923, PRN Zofran at 0924 and PRN Phenergan injection at 0930. Patient encouraged to notify nursing staff of any needs. Will monitor for patient safety. [facility] 04-07-2023 Plan of care note Problem: [...] Dietary Supplements Outcome: Adequate for Discharge [facility] 04-06-2023 Note Peripheral smear sli de prepared for evaluation. [facility] Work Phone: 04-06-2023 Note Peripheral smear sli de prepared for evaluation. [facility]: 04-06-2023 Group counseling note Department: [facility] Topic: Other Group Date: [...] Woody Ni Date of : 1960 MR: [id number] Appearance: Good eye contact Affect: Appropriate Behavior: [...] withdrawal syndrome without complication (HCC) T [facility] 04-06-2023 Plan of care note The [...] Interventions Goal: Dietary Supplements Outcome: Progressing [facility] 04-06-2023 Nurse Note Pt alert and [...] condition. Will monitor pt for safety. [facility] 04-06-2023 Telephone encounter Note Pt is recently at hospital. Will send out letter to his mailing address. Thank you [facility] 04-06-2023 Miscellaneous Notes Pt is recently at hospital. Will send out letter to his mailing address. Thank you Please contact patient for hospital follow up for chronic liver disease, history of ETOH abuse and chronic diarrhea documented in this encounter [facility] 04-05-2023 Plan of care note Problem: [...] Supplements Outcome: Adequate for Discharge T [facility] 04-05-2023 Telephone encounter Note Please contact patient for hospital follow up for chronic liver disease, history of ETOH abuse and chronic diarrhea T [facility] Work Phone: 04-05-2023 Consult note Associated Order [...] mellitus (HCC) Gout Hepatitis C Hypertension Hypothyroidism watermelon inspector prescription opiate use Nausea and vomiting Pain [...] min Stress: No Stress Concern Present (04/03/2023) [place] [employer] - Occupational Stress Questionnaire [...] outpatient GI clinic (with his established outpatient Imaging System Administrator Dr. Reyes) upon discharge from hospital. ZACK VALDES MD [facility] Work Phone: 04-05-2023 Consult note Associated Order [...] Maxwell Hinson MD, 650 mg at 04/04/23 3032 albuterol (2.5 MG/3ML) 0.083% nebulizer solution 2.5 [...] mellitus (HCC) Gout Hepatitis C Hypertension Hypothyroidism MCC prescription opiate use Nausea and vomiting Pain [...] min Stress: No Stress Concern Present (04/03/2023) [place] [employer] - Occupational Stress Questionnaire [...] no c/c/e Neuro: nonfocal Labs/Studies reviewed in [facility] GI PCR negative ASSESSMENT/PLAN: Nausea/Vomiting - [...] outpatient GI clinic (with his established outpatient Imaging System Administrator Dr. Reyes) upon discharge from hospital. ZACK [...] swallowing liquids- may be beneficial to have PROFESSIONAL SKATER assess to ensure no swallowing complications. 2. [...] comfort) Fluid Accumulation: No significant fluid accumulation 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Mining [employer] Strength: Not Performed Nutrition Assessment: pt with PMH significant for anxiety, depression, DM, hypothyroidism, HTN, cirrhosis, alcohol abuse and reflux who presented to [facility] ED on 04/02/23 with request for detox, pt admitted to detoxification unit for treatment of alcohol dependence/withdrawal- REPLENISHER was consuming six 24 ounce beers/day, nursing [...] x5 months) % Weight Change (Calculated): -12.1 [place] Body Weight (lbs) (Calculated): 166 lbs [place] Body Weight (Kg) (Calculated): 75 kg % [place] Body Weight (Calculated): 96.4 % BMI (kg/m2) [...] diet Karoline Bajwa RD Contact: available via [employer] or *[phone] Associated Order(s): IP CONSULT TO INTERNAL MEDICINE Images from the original note were not included. [facility] Initial Consult Woody Ni : 1960(63 y.o.) [...] well) to confirm this has resolved #HTN -REPLENISHER amlodipine, losartan #Hypothyroidism -REPLENISHER levothyroxine -TSH ordered DVT Prophylaxis: None Thank [...] Dr. Inder Stein, DO 6PM-6AM please page: [facility] Internal Medicine Subjective: Chief Complaint Patient presents with Alcohol Problem Interval History: Woody Ni is a 63 y.o. male admitted to [facility] for EtOH detox. [facility] consulted for unintentional weight loss. Per chart 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 prescription opiate use Nausea and vomiting 12/22/22-12/26/22 admitted at [facility] Pain management Sleep apnea noncompliant with device [...] min Stress: No Stress Concern Present (04/03/2023) [place] [employer] - Occupational Stress Questionnaire [...] been reviewed. 6AM-6PM please message me via [employer]. 6PM-6AM please page [facility] - [facility] Oral Therapist ATT documented in this encounter [facility] 04-05-2023 Nurse Note Patient alert and oriented during morning assessment. Patient denied having any SI/HI/AVH and pain. Patient med compliant. Patient complains of having indigestion. Patient given PRN Mylanta. Patient ordered breakfast but did not eat; has no appetite. Patient seen by gastroenterology this morning. Patient encouraged to notify nursing staff of any needs. Will monitor for patient safety. [facility] 04-04-2023 Plan of care note Problem: Sensory [...] Dietary Supplements Outcome: Adequate for Discharge [facility] 04-04-2023 Consult note Associated Order (s): [...] swallowing liquids- may be beneficial to have PROFESSIONAL SKATER assess to ensure no swallowing complications. 2. [...] comfort) Fluid Accumulation: No significant fluid accumulation 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Mining Products Strength: Not Performed Nutrition Assessment: pt with PMH significant for anxiety, depression, DM, hypothyroidism, HTN, cirrhosis, alcohol abuse and reflux who presented to [facility] ED on 04/02/23 with request for detox, pt admitted to detoxification unit for treatment of alcohol dependence/withdrawal- REPLENISHER was consuming six 24 ounce beers/day, nursing [...] x5 months) % Weight Change (Calculated): -12.1 [place] Body Weight (lbs) (Calculated): 166 lbs [place] Body Weight (Kg) (Calculated): 75 kg % [place] Body Weight (Calculated): 96.4 % BMI (kg/m2) [...] diet Karoline Bajwa RD Contact: available via [employer] chat or *[phone] [facility] 04-04-2023 Nurse Note Patient alert and oriented [...] to patient at 1545 for diarrhea. [facility] 04-04-2023 Consult note Associated Order (s): IP CONSULT TO INTERNAL MEDICINE Images from the original note were not included. [facility] Group Initial Consult Woody Ni [...] well) to confirm this has resolved #HTN -REPLENISHER amlodipine, losartan #Hypothyroidism -REPLENISHER levothyroxine -TSH ordered DVT Prophylaxis: None Thank [...] Dr. Inder Stein, DO 6PM-6AM please page: [facility] Internal Medicine Subjective: Chief Complaint Patient presents with Alcohol Problem Interval History: Woody Ni is a 63 y.o. male admitted to [facility] for EtOH detox. [facility] consulted for unintentional weight loss. Per chart [...] syndrome Cirrhosis (HCC) Dehydration 12/22/22-12/26/22 admitted to [facility] Depression Diabetes mellitus (HCC) Gout Hepatitis C Hypertension Hyponatremia Hypothyroidism MCC prescription opiate use Nausea and vomiting 12/22/22-12/26/22 admitted at [facility] Pain management Sleep apnea noncompliant with device [...] min Stress: No Stress Concern Present (04/03/2023) [place] [facility] [employer] - Occupational Stress Questionnaire [...] TABLET BY MOUTH DAILY 06/06/22 06/06/23 Nicolas Qui losartan (Cozaar) 100 MG tablet Take 1 [...] been reviewed. 6AM-6PM please message me via [facility]. 6PM-6AM please page [facility] Hospitalist - [facility] Oral Therapist ATT [facility] 04-04-2023 Plan of care note Problem: [...] from restraint events Outcome: Progressing T [facility] 04-03-2023 Plan of care note Consult acknowledged. Labs and vitals reviewed. The patient will be seen tomorrow with full consult note to follow. Thank you for the opportunity to participate in the care of this patient. Please reach out with concerns or questions. Inder Stein DO [facility] 04-03-2023 History and physical note Sebastian [...] min Stress: No Stress Concern Present (04/03/2023) [place] [facility] [employer] [facility] - Occupational Stress Questionnaire 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 prescription opiate use Nausea and vomiting 12/22/22-12/26/22 admitted at [facility] Pain management Sleep apnea noncompliant with device [...] SARS-CoV-2 Antigen Negative Negative Blood gas, venous ([place]) Collection Time: 04/02/23 6:08 PM [...] team, and creating a progress note. [facility] 04-03-2023 History and physical note [facility] Patient: Woody Ni Admit Date: [...] min Stress: No Stress Concern Present (04/03/2023) [place] [facility] [employer] [facility] - Occupational Stress Questionnaire 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 prescription opiate use Nausea and vomiting 12/22/22-12/26/22 admitted at [facility] Pain management Sleep apnea noncompliant with device [...] SARS-CoV-2 Antigen Negative Negative Blood gas, venous ([place]) Collection Time: 04/02/23 6:08 PM [...] progress note. documented in this encounter [facility] 04-03-2023 Note Formatting of this n ote might be different from the original. [facility] met with patient who was still agreeable to virtual IOP program with [facility] program. Patient signed MALINI. [facility] will send referral information for intake appointment. All information will be included in patient's discharge paperwork. [facility] 04-03-2023 Note Formatting of this n ote might be different from the original. [facility] met with patient who was still agreeable to virtual IOP program with [facility] program. Patient signed MALINI. [facility] will send referral information for intake appointment. All information will be included in patient's discharge paperwork. [facility] 04-03-2023 Hospital Discharge instructions GISSELL Childers [...] National Suicide Prevention Hotline if needed at: 4-324-789-CATS (8044) Please call the following number should you have questions regarding your discharge or aftercare appointments: 4 [facility] documented in this encounter 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 Patient reports his drink became problematic [...] reports he was stationed 5 miles from [facility] in . Patient reports having an honorable discharge. Family Constellation/Childhood History: Patient reports he is currently living in [place] patient denies have any biological children. Patient reports having 3 stepchildren whom he has help to raise. [place] with his longtime girlfriend. Patient has a previous history of divorce. Patient reports that he has 2 sisters whom he maintains a relationship with. Patient reports that his mother . Patient reports his 86-year-old father currently lives with one of his sisters. Patient reports that he grew up in [place] by his biological mother and father. Patient denies any history of adolescent childhood trauma or abuse. 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 Patient is currently unemployed and receives SSI/SSD. Cultural/Spirituality/Leisure: Patient denies any cultural needs or concerns at the current time. Patient denies identify any christianity preference at current time. Patient is not attending services anywhere. Patient reports in his leisure time he enjoys watching [place] [employer] sports and football. Support Systems/Collateral Information: Patient [...] treatment due to transportation issues. Patient and [facility] discussed alternative options in the community that provide virtual assessment and IOP services. Patient is interested in the services and willing to engage in them. [facility] will assist patient with scheduling aftercare appointments. Patient encouraged to engage in activities that are offered and ways in the unit. Patient not report anything additional at current time. Patient encouraged to seek out [facility] unit staff should he identify any additional [...] to contact the dictating provider for clarification. [facility] 04-03-2023 Note Formatting of this n ote [...] 18 years old and enlisted in the [employer]. Patient reports his drink became problematic [...] reports he was stationed 5 miles from [facility] in . Patient reports having an honorable discharge. Family Constellation/Childhood History: Patient reports he is currently living in [place] patient denies have any biological children. Patient reports having 3 stepchildren whom he has help to raise. [place] with his longtime girlfriend. Patient has a previous history of divorce. Patient reports that he has 2 sisters whom he maintains a relationship with. Patient reports that his mother . Patient reports his 86-year-old father currently lives with one of his sisters. Patient reports that he grew up in [place] by his biological mother and father. Patient denies any history of adolescent childhood trauma or abuse. 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 Patient is currently unemployed and receives SSI/SSD. Cultural/Spirituality/Leisure: Patient denies any cultural needs or concerns at the current time. Patient denies identify any christianity preference at current time. Patient is not attending services anywhere. Patient reports in his leisure time he enjoys watching [place] [employer] sports and football. Support Systems/Collateral Information: Patient [...] treatment due to transportation issues. Patient and [facility] discussed alternative options in the community that provide virtual assessment and IOP services. Patient is interested in the services and willing to engage in them. [facility] will assist patient with scheduling aftercare appointments. Patient encouraged to engage in activities that are offered and ways in the unit. Patient not report anything additional at current time. Patient encouraged to seek out [facility] unit staff should he identify any additional [...] contact the dictating provider for clarification. [facility] 04-03-2023 Nurse Note Pt alert and [...] Will monitor pt for safety. T [facility] 04-02-2023 Emergency department Note Patient left with Physician's crew. Ruperto Velazquez RN 04/02/232058 [facility] 04-02-2023 Emergency department Note Patient left with Physician's crew. Ruperto Velazquez RN 04/02/232058 Warm blanket to patient. Ruperto Velazquez RN 04/02/232040 Patient's belongings inventoried by financial services officer. Ruperto Velazquez RN 04/02/232014 Report to 4E. Ruperto Velazquez RN 04/02/232014 [facility] gave ETA Ruperto Velazquez RN 04/02/231950 Phone to patient. Ruperto Velazquez RN 04/02/231910 Report from dayshift Rns. Pt. Resting, no distress noted. Ruperto Velazquez RN 04/02/231910 Lab called with panic ETOH 0.352. Dr. Bermudez aware Emilee Gonzalez, MEGGAN 04/02/23 1714 Patient up to [...] Culture. Procedure Abnormality Status --------- ------ Complete Urinalysis[[id number]] Abnormal Final result Please view results for [...] RN 04/02/232013 documented in this encounter [facility] 04-02-2023 Emergency department Note Warm blanket to patient. Ruperto Velazquez RN 04/02/232040 [facility] 04-02-2023 Emergency department Note Patient's belongings inventoried by financial services officer. Ruperto Velazquez RN 04/02/232014 [facility] 04-02-2023 Emergency department Note Report to 4E. Ruperto Velazquez RN 04/02/232014 [facility] 04-02-2023 Emergency department Note [facility] gave ETA Ruperto Velazquez RN 04/02/231950 [facility] 04-02-2023 Emergency department Note Phone to patient. Ruperto Velazquez RN 04/02/231910 [facility] 04-02-2023 Emergency department Note Report from dayshift Rns. Pt. Resting, no distress noted. Ruperto Velazquez RN 04/02/[address] [facility] 04-02-2023 Note NOTE: This result is for medical treatment only. Analysis performed using non-forensic procedures. [facility] 04-02-2023 Emergency department Note Lab called with panic ETOH 0.352. Dr. Bermudez aware Emilee Gonzalez RN 04/02/[address] [facility] 04-02-2023 Emergency department Note Patient up to bathroom, and back to bed. Ophelia Schultz RN 04/02/[address] [facility] 04-02-2023 Emergency department Triage note Pt [...] he drinks 12-18 beers a day. [facility] 04-02-2023 Physician Emergency department Note EMERGENCY [...] Culture. Procedure Abnormality Status --------- ------ Complete Urinalysis[[id number]] Abnormal Final result Please view results for [...] (electronically signed) José Luis Bermudez MD 04/02/231899 [facility] Work Phone: 04-02-2023 Emergency department Note Report to 4E. Ruperto Velazquez RN 04/02/232013 [facility] 02-17-2023 Miscellaneous Notes Attempt #2 - no answer/no contact S: Patient admitted to: [facility] B: Discharged on :February 14, 2023 A: Hospital follow up call initiated to discuss any medication changes, follow up appointments and discharge instructions: diagnosis: hyponatremia R: No contact x 1 at : [phone] documented in this encounter [facility] 02-17-2023 Telephone encounter Note Attempt #2 - no answer/no contact [facility] 02-16-2023 Telephone encounter Note S: Patient admitted to: [facility] B: Discharged on :February 14, 2023 A: Hospital follow up call initiated to discuss any medication changes, follow up appointments and discharge instructions: diagnosis: hyponatremia R: No contact x 1 at : [phone] [facility] 02-14-2023 History of Present illness Narrative Front wheeled walker brought up to room by nursing esters and emulsifiers supervisor. Homegoing instructions given. Iid discontinued. Premier [...] 100 mL/hr, Last Rate: 100 mL/hr (02/10/23 6404) PRN medications: acetaminophen OR acetaminophen, ondansetron ODT [...] any questions or concerns. Ophelia Ramos APRN, REGULATORY SERVICES CONSULTANT [facility], [facility] [phone] Associated attestation - Kennedi Péerz MD - 02/13/2023 5:16 PM EDT I have reviewed the above assessment and plan with the MANAGER SOFTWARE. I agree with above note. Consistently poor [...] any questions or concerns. Ophelia Ramos APRN, REGULATORY SERVICES CONSULTANT [facility], [facility] [phone] Associated attestation - Kennedi Pérez MD - 02/12/2023 3:45 PM EDT ,I have reviewed the above assessment and plan with the MANAGER SOFTWARE. I agree with above note. Slowly improving sodium levels. More IVF ordered today as listed in MANAGER SOFTWARE note. Department of Family Medicine Daily Progress [...] DO 02/12/23 7:59 PM Occupational Therapy Facility/Department: [address] Occupational Therapy Initial Evaluation NAME: Woody [...] hyponatremia and is GI/Cdiff rule out. Exam: [facility] Assistance / Modification: SUP-Eliezer for ADLs baseline [...] surgical history that includes Back surgery; Laminectomy; [place] tooth extraction; lap,cholecystectomy (historical) (N/A, 01/05/2023); and [...] quad cane Transfer Assistance: Needs assistance Active Farm Adviser: No Objective Gross Assessment: Yes AROM: Generally [...] transferred to rehab service department Occupational Therapist Jonny Yeh OT Nutrition Assessment Type and Reason [...] had a decreased appetite for 2 days REPLENISHER, but suspect impaired nutrient utilization 2/2 ongoing vomiting/diarrhea. Also with ETOH use hx) Weight Loss: (Weights are up and down, fluctuating between 171-210#) Body Fat Loss: Unable to assess Muscle Mass Loss: Unable to assess Fluid Accumulation: No significant fluid accumulation 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Mining Products Strength: Not Performed Nutrition Assessment: Pt was [...] that his appetite only decreased 2 days REPLENISHER. Pt has ETOH use hx- reportedly drinks [...] On: Kcal/kg Weight Used for Energy Requirements: [place] Weight for Energy Calculation (kg): 75 kg Total Energy Requirements (kcals/day): 2092-9388 kcals (25-30 kcals/kg) Weight Used for Protein Requirements: [place] Weight in Kg Used for Protein Requirements: [...] Meal Intake: (Decreased appetite for two days REPLENISHER per pt. Has desire to eat currently) Average Supplements Intake: None Ordered Anthropometric Measures: Height: 177.8 cm (5' 10") Current Body Weight: 77.6 kg (171 lb) Weight Source: Not Specified Admission Body Weight: 79.4 kg (175 lb) (stated) Usual Body Weight: (177-210#) [place] Body Weight (lbs) (Calculated): 166 lbs [place] Body Weight (Kg) (Calculated): 75 kg % [place] Body Weight (Calculated): 103 % BMI (kg/m2) [...] Oral Nutrition Supplement Kristine George RD Contact: *[phone] or via Secure Chat Physical Therapy Facility/Department: [facility] 2E Physical Therapy Initial Evaluation NAME: Woody [...] PT to increase functional endurance and strength. [facility] PT and assist. Performance Deficits/Impairments: Decreased functional [...] home and uses SPC for mobility. Rec [facility], however patient is declining due to [...] surgical history that includes Back surgery; Laminectomy; [place] tooth extraction; lap,cholecystectomy (historical) (N/A, 01/05/2023); and [...] quad cane Transfer Assistance: Needs assistance Active Farm Adviser: No Objective Observation/Palpation Posture: Fair Observation: PIV [...] Bull PT documented in this encounter [facility] 02-14-2023 Hospital Discharge instructions Lynne Moser RN - 02/14/2023 10:41 AM EDT East to chew healthy diet restrict fluid intake documented in this encounter [facility] 02-14-2023 Hospital course Narrative Images from [...] Complexity: follow up within 7-14 calendar days (49472) [] Severe Complexity: follow up within 7 calendar days (28646) FOLLOW UP TESTING, PENDING RESULTS OR REFERRALS AT TRANSITIONAL CARE VISIT: [] Yes [] No PENDING STUDIES: none DISPOSITION: Home FACILITY/HOME CARE AGENCY NAME: Follow up with Kennedi Pérez MD [address] [place] [address] Follow up Outpatinet labs in 1 [...] 9:17 AM documented in this encounter [facility] 02-14-2023 Plan of care note Problem: Potential for Compromised Skin Integrity Goal: Skin Integrity is Maintained or Improved Outcome: Progressing Problem: Urinary Incontinence Goal: Perineal skin integrity is maintained or improved Outcome: Progressing [facility] 02-14-2023 Miscellaneous Notes Problem: Potential for [...] home care services. FWW ordered yesterday per [place] community case manager request. [facility] notified. Discharge Milestones and Delays [...] No GMLOS Documented .. Received message from [place] community case manager that patient was requesting FWW. Order obtained [...] did evaluate yesterday and recommended home with [facility]. Patient did refuse yesterday. Will discuss with him again prior to discharge to determine if he has changed his mind. Discharge plan home with [facility] vs home with significant other when medically [...] of Information: Patient Name/Contact Information: KINGSLEY CARL [phone] SIGNIFICANT OTHER FOR 25 YEARS Cognition/Language: WFL - Within Functional Limits Permission given to speak with patient service liaison representative/caregiver as indicated: Yes Confirmation of Payer with patient/family: Yes Payer Name: MEDICARE AND MEDICAID [place]: No Confirmation of Primary Care Physician: Confirmed [...] consult. . documented in this encounter [facility] 02-13-2023 Note Formatting of this n [...] home care services. FWW ordered yesterday per community case manager request. [facility] notified. Discharge Milestones and Delays [...] 3 GMLOS: No GMLOS Documented .. [facility] 02-13-2023 Note Formatting of this n [...] home care services. FWW ordered yesterday per [place] community case manager request. [facility] notified. Discharge Milestones and Delays [...] (Days): 3 GMLOS: No GMLOS Documented .. [facility] 02-12-2023 Note Formatting of this n ote might be different from the original. Received message from [place] community case manager that patient was requesting FWW. Order obtained and [facility] liaison notified. [facility] 02-12-2023 Note Formatting of this n ote might be different from the original. Received message from [place] community case manager that patient was requesting FWW. Order obtained and [facility] liaison notified. [facility] 02-12-2023 Note Formatting of this n ote [...] did evaluate yesterday and recommended home with [facility]. Patient did refuse yesterday. Will discuss with him again prior to discharge to determine if he has changed his mind. Discharge plan home with [facility] vs home with significant other when medically [...] (Days): 2 GMLOS: No GMLOS Documented .. [facility] 02-12-2023 Note Formatting of this n ote [...] did evaluate yesterday and recommended home with [facility]. Patient did refuse yesterday. Will discuss with him again prior to discharge to determine if he has changed his mind. Discharge plan home with [facility] vs home with significant other when medically [...] GMLOS: No GMLOS Documented .. T [facility] 02-12-2023 Consult note Associated Order (s): [...] pain Cirrhosis (HCC) Dehydration 12/22/22-12/26/22 admitted to [facility] Diabetes mellitus (HCC) Gout Hepatitis C Hypertension Hypothyroidism Nausea and vomiting 12/22/22-12/26/22 admitted at [facility] Sleep apnea noncompliant with device PAST SURGICAL [...] to contact the dictating provider for clarification.) [employer] Phone: 02-12-2023 Consult note Associated Order (s): [...] pain Cirrhosis (HCC) Dehydration 12/22/22-12/26/22 admitted to [facility] Diabetes mellitus (HCC) Gout Hepatitis C Hypertension Hypothyroidism Nausea and vomiting 12/22/22-12/26/22 admitted at [facility] Sleep apnea noncompliant with device PAST SURGICAL [...] clarification.) Associated Order(s): IP CONSULT TO NEPHROLOGY [facility] Consult Note Reason for [...] pain Cirrhosis (HCC) Dehydration 12/22/22-12/26/22 admitted to [facility] Diabetes mellitus (HCC) Gout Hepatitis C Hypertension Hypothyroidism Nausea and vomiting 12/22/22-12/26/22 admitted at [facility] Sleep apnea noncompliant with device Past Surgical [...] any questions or concerns. Ophelia Ramos APRN, REGULATORY SERVICES CONSULTANT [facility], [facility] [phone] office Associated attestation - Kennedi Pérez MD [...] over time. documented in this encounter [facility] 02-11-2023 Note Formatting of this n ote might be different from the original. Care Managment Initial Assessment Date: 02/11/2023 Patient Name: Woody Ni : 1960 Patient Information Source of Information: Patient Name/Contact Information: KINGSLEY CARL [phone] SIGNIFICANT OTHER FOR 25 YEARS Cognition/Language: WFL - Within Functional Limits Permission given to speak with patient service liaison representative/caregiver as indicated: Yes Confirmation of Payer [...] medically stable.. Lea Gee RN T [facility] 02-11-2023 Note Formatting of this n ote might be different from the original. Care Managment Initial Assessment Date: 02/11/2023 Patient Name: Woody Ni : 1960 Patient Information Source of Information: Patient Name/Contact Information: KINGSLEY CARL [phone] SIGNIFICANT OTHER FOR 25 YEARS Cognition/Language: WFL - Within Functional Limits Permission given to speak with patient service liaison representative/caregiver as indicated: Yes Confirmation of Payer [...] other when medically stable.. Lea Gee RN [facility] 02-11-2023 Consult note Associated Order (s): IP CONSULT TO NEPHROLOGY [facility] Consult Note Reason for [...] pain Cirrhosis (HCC) Dehydration 12/22/22-12/26/22 admitted to [facility] Diabetes mellitus (HCC) Gout Hepatitis C Hypertension Hypothyroidism Nausea and vomiting 12/22/22-12/26/22 admitted at [facility] Sleep apnea noncompliant with device Past Surgical [...] any questions or concerns. Ophelia Ramos APRN, REGULATORY SERVICES CONSULTANT [facility], [facility] [phone] office Associated attestation - Kennedi Pérez MD [...] closely, has slowly improved over time. [facility] 02-11-2023 History and physical note Department [...] pain Cirrhosis (HCC) Dehydration 12/22/22-12/26/22 admitted to [facility] Diabetes mellitus (HCC) Gout Hepatitis C Hypertension Hypothyroidism Nausea and vomiting 12/22/22-12/26/22 admitted at [facility] Sleep apnea noncompliant with device Past Surgical [...] BENZ DO 02/11/23 9:20 AM T [facility] 02-11-2023 History and physical note Department [...] pain Cirrhosis (HCC) Dehydration 12/22/22-12/26/22 admitted to [facility] Diabetes mellitus (HCC) Gout Hepatitis C Hypertension Hypothyroidism Nausea and vomiting 12/22/22-12/26/22 admitted at [facility] Sleep apnea noncompliant with device Past Surgical [...] 9:20 AM documented in this encounter [facility] 02-11-2023 Note Formatting of this n [...] benefit from addiction med consult. . [facility] 02-11-2023 Note Formatting of this n [...] benefit from addiction med consult. . [facility] 02-11-2023 Emergency department Note Ice chips provided. No other needs at this time. Call light at bedside. Adri Parra 02/11/[address] [facility] 02-11-2023 Emergency department Note Ice chips provided. No other needs at this time. Call light at bedside. Adri Parra 02/11/23 0019 Per physicans they outsourced to Sergio Lynn new ETA will be [phone]. Ophelia Schultz RN 02/10/23 3595 Critical sodium level received from Ashly in lab; sodium is 118, and primary nurse EMGGAN Jacinto notified. Aubree Ratliff RN 02/10/23 2246 Emergency Department Encounter [facility] ED Patient: Woody Ni : 1960 Date of Evaluation: 02/10/2023 ED Provider: Rubén Hoang DO Chief Complaint Chief Complaint Patient presents with Vomiting Diarrhea KASAAN Woody Ni is a 63 y.o. male [...] pain Cirrhosis (HCC) Dehydration 12/22/22-12/26/22 admitted to [facility] Diabetes mellitus (HCC) Gout Hepatitis C Hypertension Hypothyroidism Nausea and vomiting 12/22/22-12/26/22 admitted at [facility] Sleep apnea noncompliant with device Past Surgical [...] orders to display Procedures/EKG: EKG Interpreted in Zarpo software by myself SCREENINGS EMERGENCY DEPARTMENT COURSE [...] within reach. documented in this encounter [facility] 02-10-2023 Emergency department Note Per physicans they outsourced to Sergio Shane new ETA will be [phone]. Ophelia Schultz RN 02/10/[address] [facility] 02-10-2023 Emergency department Note Critical sodium level received from [place] in lab; sodium is 118, and primary nurse MEGGAN Jacinto notified. Aubree Ratliff RN 02/10/[address] [facility] 02-10-2023 Emergency department Triage note Patient to room 12 with c/o N/V/D, headache, cough for 2 days. Patient reports testing himself for COVID 2 days ago with negative results. V/S obtained, call light within reach. [facility] 02-10-2023 Physician Emergency department Note Emergency Department Encounter [facility] ED Patient: Woody Ni : 1960 Date [...] pain Cirrhosis (HCC) Dehydration 12/22/22-12/26/22 admitted to [facility] Diabetes mellitus (HCC) Gout Hepatitis C Hypertension Hypothyroidism Nausea and vomiting 12/22/22-12/26/22 admitted at [facility] Sleep apnea noncompliant with device Past Surgical [...] orders to display Procedures/EKG: EKG Interpreted in Zarpo software by myself SCREENINGS EMERGENCY DEPARTMENT COURSE [...] Solutions Rubén Hoang DO 02/11/[address] [facility] 01-28-2023 History of Present illness Narrative [facility] - Surgery Patient Name: Woody Ni Date: [...] pain Cirrhosis (HCC) Dehydration 12/22/22-12/26/22 admitted to [facility] Diabetes mellitus (HCC) Gout Hepatitis C Hypertension Hypothyroidism Nausea and vomiting 12/22/22-12/26/22 admitted at [facility] Sleep apnea noncompliant with device O: BP [...] MD (Gastroenterology) documented in this encounter [facility] 01-12-2023 Telephone encounter Note Called and spoke to Kingsley and gave her the information regarding drainage. She voiced understanding. They have not yet made appt with GI [facility] 01-12-2023 Miscellaneous Notes Called and spoke [...] Name of caller: Kingsley Contact phone number: [phone] Relationship to Patient: spouse Provider: Dr Fang Practice: [facility] Emergency Department Chief Complaint/Reason for Call: Kingsley states pt [...] call: N/A documented in this encounter [facility] 01-12-2023 Telephone encounter Note Patient has ascites from his cirrhotic liver. This is a build up of fluid in his abdomen. He is going to continue to have drainage until wound closes which can take a few weeks. Need to continue to change dressing as needed. Please ask if he made appt with GI. Thanks. [facility] 01-12-2023 Telephone encounter Note Name of caller: Kingsley Contact phone number: [phone] Relationship to Patient: spouse Provider: Dr Fang Practice: [facility] Emergency Department Chief Complaint/Reason for Call: Kingsley states pt [...] hours to return their call: N/A [facility] 01-09-2023 Emergency department Note Pt given chux and dressing supplies to go home with. Instructed to increase Lasix to 40mg Thursday, Thursday and Thursday. Pt and verbalized understanding Emilee Gonzalez RN 01/09/[address] [facility] 01-09-2023 Emergency department Note Pt given chux and dressing supplies to go home with. Instructed to increase Lasix to 40mg Thursday, Thursday and Thursday. Pt and verbalized understanding Emilee Gonzalez RN 01/09/23 1400 Waiting for call back from Dr. Zografakis. [...] Cirrhosis (CMS/HCC) (HCC) Dehydration 12/22/22-12/26/22 admitted to [facility] Diabetes mellitus (HCC) Gout Hepatitis C Hypertension Hypothyroidism Nausea and vomiting 12/22/22-12/26/22 admitted at [facility] Sleep apnea noncompliant with device SURGICAL HISTORY [...] the abdomen pelvis Discussions with other clinicians: Retention Specialist Dr. Fang directed that this is likely [...] PM PATIENT REFERRED TO: Jani Quezada [address] [facility] [address] Schedule an appointment as soon as possible for a visit [facility] ED [address] [facility] [facility] [address] As needed DISCHARGE MEDICATIONS: New [...] Emergency Medicine Provider Júnior Lo MD 01/09/23 9401 Pt to ER with complaint of leaking [...] shirt wet. documented in this encounter [facility] 01-09-2023 Hospital Discharge instructions Júnior Lo MD - 01/09/2023 1:53 PM EDT Take 40 mg a day of the Lasix Thursday Contact your doctor and Dr. Fang on Thursday to inform them of how you are doing. The following attachments cannot be sent through Care Everywhere.Cirrhosis (Hebrew)documented in this encounter [facility] 01-09-2023 Emergency department Note Waiting for call back from Dr. Fang. Pt and aware Emilee Gonzalez RN 01/09/[address] [facility] 01-09-2023 Emergency department Triage note Pt [...] bandaid dressing and pt shirt wet. [facility] 01-09-2023 Physician Emergency department Note EMERGENCY [...] Cirrhosis (CMS/HCC) (HCC) Dehydration 12/22/22-12/26/22 admitted to [facility] Diabetes mellitus (HCC) Gout Hepatitis C Hypertension Hypothyroidism Nausea and vomiting 12/22/22-12/26/22 admitted at [facility] Sleep apnea noncompliant with device SURGICAL HISTORY [...] the abdomen pelvis Discussions with other clinicians: Retention Specialist Dr. Fang directed that this is likely [...] PM PATIENT REFERRED TO: Jani Alvarezrocael [address] [facility] [address] Schedule an appointment as soon as possible for a visit [facility] ED [address] [address] As needed DISCHARGE MEDICATIONS: New Prescriptions [...] Emergency Medicine Provider Júnior Lo MD 01/09/23 9126 [employer] Work Phone: 01-05-2023 Note Formatting of this n ote might be different from the original. Images from the original note were not included. [facility] Surgery Patient Name: Woody Ni OPERATIVE NOTE DATE OF PROCEDURE: 01/05/2023 SURGEON: Ruperto Fang MD GREENHOUSE GROWER: Genna Castro DO PREOPERATIVE DIAGNOSIS: Gallbladder sludge [...] the recovery room in stable condition. [facility] 01-05-2023 Note Formatting of this n ote might be different from the original. Images from the original note were not included. [facility] Surgery Patient Name: Woody Ni OPERATIVE NOTE DATE OF PROCEDURE: 01/05/2023 SURGEON: Ruperto Fang MD GREENHOUSE GROWER: Genna Castro DO PREOPERATIVE DIAGNOSIS: Gallbladder sludge [...] the recovery room in stable condition. [facility] 01-05-2023 Miscellaneous Notes Images from the original note were not included. [facility] Surgery Patient Name: Woody Ni OPERATIVE NOTE DATE OF PROCEDURE: 01/05/2023 SURGEON: Ruperto Fang MD GREENHOUSE GROWER: Genna Castro DO PREOPERATIVE DIAGNOSIS: Gallbladder sludge [...] stable condition. documented in this encounter [facility] 01-05-2023 Attending History and physical note Images from the original note were not included. [facility] - [facility] Surgery Patient Name: Woody Ni Date: [...] Source Note - Erika Lazar APRN - REGULATORY SERVICES CONSULTANT - 12/29/2022 11:30 AM EDT Images from the original note were not included. Comprehensive PreSurgical History and Physical ? Name: Woody Ni : 1960 (Age-62 y.o.) Date of Service: Pt seen/examined on 12/29/2022 Procedure Information Date/Time: 01/05/23929 Procedure: LAPAROSCOPIC CHOLECYSTECTOMY, POSSIBLE OPEN (Abdomen) - 90 minutes total Location: [address] Operating Room Surgeons: Ruperto Fang MD Chief Complaint: Other specified disease of gallbladder History Of Present Illness: 62 y.o. male who we are asked to see/evaluate by Dr. Fang for pre-operative evaluation prior to above procedure . ? Denies history of [place], CAD, CHF, TIA, CVA Past Medical History: Past Medical History: No date: Acid reflux No date: Anxiety No date: Back pain No date: Cirrhosis (CMS/HCC) (HCC) No date: Dehydration Comment: 12/22/22-12/26/22 admitted to [facility] No date: Diabetes mellitus (HCC) No date: Gout No date: Hepatitis C No date: Hypertension No date: Hypothyroidism No date: Nausea and vomiting Comment: 12/22/22-12/26/22 admitted at [facility] Past Surgical History: Past Surgical History: No [...] and Sleep Clinic Referral (if appropriate) [facility] 01-05-2023 History and physical note Images from the original note were not included. [facility] - Surgery [facility] Surgery Patient Name: Woody Ni Date: [...] Source Note - Erika Lazar APRN - REGULATORY SERVICES CONSULTANT - 12/29/2022 11:30 AM EDT Images from the original note were not included. Comprehensive PreSurgical History and Physical ? Name: Woody Ni : 1960 (Age-62 y.o.) Date of Service: Pt seen/examined on 12/29/2022 Procedure Information Date/Time: 01/05/23 0930 Procedure: LAPAROSCOPIC CHOLECYSTECTOMY, POSSIBLE OPEN (Abdomen) - 90 minutes total Location: [facility] OR [address] [place] [address] Operating Room Surgeons: Ruperto Fang MD Chief Complaint: Other specified disease of gallbladder History Of Present Illness: 62 y.o. male who we are asked to see/evaluate by Dr. Fang for pre-operative evaluation prior to above procedure . ? Denies history of [place], CAD, CHF, TIA, CVA Past Medical History: Past Medical History: No date: Acid reflux No date: Anxiety No date: Back pain No date: Cirrhosis (CMS/HCC) (HCC) No date: Dehydration Comment: 12/22/22-12/26/22 admitted to [facility] No date: Diabetes mellitus (HCC) No date: Gout No date: Hepatitis C No date: Hypertension No date: Hypothyroidism No date: Nausea and vomiting Comment: 12/22/22-12/26/22 admitted at [facility] Past Surgical History: Past Surgical History: No [...] (if appropriate) documented in this encounter [facility] 01-05-2023 Hospital Discharge instructions Ruperto Fang MD - 01/05/2023 7:34 AM EDT Images from the original note were not included. [facility] - [facility] Surgery DISCHARGE INSTRUCTIONS FOR DR. FANG Thank you very much for allowing me to participate in your care, it is truly a privilege. Below please see discharge orders that will help you during your recovery. Please do not hesitate to call the office during the day at [phone] for any questions. After hours, the same [...] M.D., F.A.C.S. documented in this encounter [facility] 12-30-2022 Telephone encounter Note Spoke with [...] 10mg as prescribed by pain management. [facility] 12-30-2022 Miscellaneous Notes Spoke with patient's [...] pain management. documented in this encounter [facility] 12-27-2022 Telephone encounter Note Date/Time patient [...] compliment? Everyone was great to him. [facility] 12-27-2022 Miscellaneous Notes Date/Time patient contacted: [...] to him. documented in this encounter [facility] 12-25-2022 Miscellaneous Notes Was following for [...] for the shift include fluids and comfort Farm Advisor following case for Discharge Needs. Aware PT [...] Limits Permission given to speak with patient service liaison representative/caregiver as indicated: Yes Confirmation of Payer [...] Living Prescription Coverage: Yes Pharmacy Used: [email or web address] Medication Management: Independent Transportation/Shopping: Assistance Provider Transportation/Shopping [...] shift include documented in this encounter [facility] 12-25-2022 Note Formatting of this n ote might be different from the original. Was following for possible HHC services. Both OT and PT therapies have noted that patient has no acute therapy needs at this time. Denies need. Patient to have future elective cholecystectomy later this month. This PACC will sign off this referral. [employer] 12-25-2022 Note Formatting of this n ote might be different from the original. Was following for possible HHC services. Both OT and PT therapies have noted that patient has no acute therapy needs at this time. Denies need. Patient to have future elective cholecystectomy later this month. This PACC will sign off this referral. [facility] [email or web address] 12-25-2022 History of Present illness Narrative GENERAL [...] proceed with plan. Marlyn Jones, LEAH - REGULATORY SERVICES CONSULTANT Occupational Therapy Facility/Department: [facility] Occupational Therapy Treatment NAME: Woody Ni : [...] history that includes Back surgery; Laminectomy; and Vesuvius tooth extraction. Restrictions Restrictions/Precautions Restrictions/Precautions: General Precautions, [...] Minutes: 12 Minutes (self) Toma Hardwick OT [facility] Note Subjective/ 62 y.o. [...] any questions or concerns. Ophelia Okeefe APRN, REGULATORY SERVICES CONSULTANT [facility], [facility] [phone] Seen and examined. Agree with above assessment and plan. Cr improving. C/w IVF for one more day. Attending Attestation [facility] Patient Name: Woody Ni Date: [...] performed. Colin Sánchez MD General Surgery Pager #[phone] Perfect Serve: Colin Sánchez 3:55 PM 12/24/2022 [...] DO 12/24/22 8:26 PM Physical Therapy Facility/Department: [facility] 4S Physical Therapy Initial Evaluation NAME: Woody [...] history that includes Back surgery; Laminectomy; and [place] tooth extraction. Restrictions Restrictions/Precautions Restrictions/Precautions: General Precautions, [...] Independent (with cane) Transfer Assistance: Independent Active Farm Adviser: No Patient's Farm Adviser Info: Objective Observation/Palpation Posture: Fair Observation: forward [...] Inpatient Mobility Raw Score: 24 Mobility Inpatient [facility] G-Code Modifier: CH Goals Eval only Education Education Given To: Patient Education Provided: PT Role, Plan of Care, Energy Conservation, Gait Training Education Method: Verbal Barriers to Learning: None Education Outcome: Verbalized understanding Therapy Time Individual Co-treatment Time In 1537 Time Out 1548 Minutes 11 Krystle Bull PT Occupational Therapy Facility/Department: [address] Occupational Therapy Initial Evaluation NAME: Woody [...] address the above. Recommend planned D/C for [facility] OT with assist PRN. Prognosis: Good [...] history that includes Back surgery; Laminectomy; and [place] tooth extraction. Restrictions Restrictions/Precautions Restrictions/Precautions: General Precautions, [...] Independent (with cane) Transfer Assistance: Independent Active Farm Adviser: No Patient's Farm Adviser Info: Objective Gross Assessment: Yes AROM: Generally [...] reports minimal PO intake x few days REPLENISHER r/t n&v. Last emesis 12/21 vs 12/22, tolerating CLD well since 12/22) Weight Loss: No significant weight loss Body Fat Loss: No significant body fat loss Muscle Mass Loss: No significant muscle mass loss Fluid Accumulation: No significant fluid accumulation 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[employer] Strength: Not Performed Nutrition Assessment: 62 y.o. [...] worsening in the past few days--last emesis REPLENISHER. States he was unable to keep any PO down for a few days REPLENISHER. He reports tolerating CLD well so far. [...] On: Kcal/kg Weight Used for Energy Requirements: [place] Weight for Energy Calculation (kg): 75 kg Total Energy Requirements (kcals/day): 27-30 kcal/kg = 8255-7231 kcal/day Weight Used for Protein Requirements: [place] Weight in Kg Used for Protein Requirements: [...] 05/15 177#) % Weight Change (Calculated): -1.4 [place] Body Weight (lbs) (Calculated): 166 lbs [place] Body Weight (Kg) (Calculated): 75 kg % [place] Body Weight (Calculated): 106.9 % BMI (kg/m2) [...] soon to determine Raya Blandon RD Contact: [phone] documented in this encounter [facility] 12-24-2022 Plan of care note Problem: [...] for the shift include fluids and comfort [employer] 12-23-2022 Note Formatting of this n ote might be different from the original. Farm Advisor following case for Discharge Needs. Aware PT therapy recommending home with assist PRN with no acute PT needs at this time. Will follow and await final discharge plan. Patient is being monitored for possible surgical intervention on this admit. [employer] 12-23-2022 Note Formatting of this n ote might be different from the original. Farm Advisor following case for Discharge Needs. Aware PT therapy recommending home with assist PRN with no acute PT needs at this time. Will follow and await final discharge plan. Patient is being monitored for possible surgical intervention on this admit. [employer] 12-23-2022 Consult note Associated Order (s): Inpatient [...] to contact the dictating provider for clarification.) [employer] Phone: 12-23-2022 Consult note Associated Order (s): [...] original note were not included. Attending Attestation [facility] - Surgery [facility] Physicians Surgery Patient Name: Woody Ni Date: [...] performed. Colin Sánchez MD General Surgery Pager #[phone] Perfect Serve: Colin Sánchez 4:56 PM 12/23/2022 [...] may have. Kacie Ybarra MD Personal Pager [phone] [facility] Surgery Pager [phone] during hours 7:30a-4:30p Thursday-Thursday After hours, please contact physician extrusion die template maker. Associated Order(s): IP CONSULT TO NEPHROLOGY [facility] [...] 2/2 losartan given -No acute need for DATA DELIVERABLES MANAGER at this time but can still be [...] any questions or concerns. Ophelia Okeefe APRN, REGULATORY SERVICES CONSULTANT [facility], [facility] [phone] office Seen and examined. Agree with above A and P. Severe DENNYS 2/2 ATN, volume depletion. Responding to IVF. Change IVF to LR to address worsening acidosis from NS. No DATA DELIVERABLES MANAGER indications, will follow. documented in this encounter [facility] 12-23-2022 Consult note Associated Order (s): IP CONSULT TO GENERAL SURGERY Images from the original note were not included. Attending Attestation [facility] Phys[facility] Surgery Patient Name: Woody Ni Date: [...] performed. Colin Sánchez MD General Surgery Pager #[phone] Perfect Serve: Colin Sánchez 4:56 PM 12/23/2022 [...] may have. Kacie Ybarra MD Personal Pager [phone] [facility] Surgery Pager [phone] during hours 7:30a-4:30p Thursday-Thursday After hours, please contact physician extrusion die template maker. [facility] 12-23-2022 Consult note Associated Order (s): IP [...] 2/2 losartan given -No acute need for DATA DELIVERABLES MANAGER at this time but can still be [...] any questions or concerns. Ophelia Okeefe APRN, REGULATORY SERVICES CONSULTANT [facility], [facility] [phone] office Seen and examined. Agree with above A and P. Severe DENNYS 2/2 ATN, volume depletion. Responding to IVF. Change IVF to LR to address worsening acidosis from NS. No DATA DELIVERABLES MANAGER indications, will follow. [facility] 12-23-2022 Note Formatting of this n ote might be different from the original. Care Managment Initial Assessment Date: 12/23/2022 Patient Name: Woody Ni : 1960 Patient Information Source of Information: Patient Cognition/Language: WFL - Within Functional Limits Permission given to speak with patient service liaison representative/caregiver as indicated: Yes Confirmation of Payer with patient/family: Yes Payer Name: Medicare [place]: Yes Confirmation of Primary Care Physician: Confirmed [...] Daily Living Prescription Coverage: Yes Pharmacy Used[facility] Medication Management: Independent Transportation/Shopping: Assistance Provider Transportation/Shopping [...] will provide transportation home. Alexandra Chaves RN [facility] 12-23-2022 Note Formatting of this n ote might be different from the original. Care Managment Initial Assessment Date: 12/23/2022 Patient Name: Woody Ni : 1960 Patient Information Source of Information: Patient Cognition/Language: WFL - Within Functional Limits Permission given to speak with patient service liaison representative/caregiver as indicated: Yes Confirmation of Payer [...] Daily Living Prescription Coverage: Yes Pharmacy Used: [facility] Medication Management: Independent Transportation/Shopping: Assistance Provider Transportation/Shopping [...] will provide transportation home. Alexandra Chaves RN [facility] 12-23-2022 History and physical note Department of [...] labs KACIE BENZ DO 12/23/22 8:43 PM [facility] 12-23-2022 History and physical note Department of [...] 8:43 PM documented in this encounter [facility] 12-23-2022 Plan of care note The patient is Moderately Stable - Low risk of patient condition declining or worsening The patient's goals for the shift include The clinical goals for the shift include [facility] 12-23-2022 Emergency department Note Patient ambulated to EMS stretcher without difficulty Josephine Valverde RN 12/23/[address] [facility] 12-23-2022 Emergency department Note Patient ambulated [...] skin or sores Josephine Valverde RN 12/22/22 0727 Warm blankets provided to patient Josephine Valverde [...] to accept patient for telemetry admission at [facility]. Rubén Hoang DO 12/23/22 0015 Patient arrived [...] at bedside. documented in this encounter [facility] 12-22-2022 Emergency department Note Patient appears to be in no acute distress. Respirations even and non labored. A&O x3. Bed locked, in low position, and call light within reach. No further needs. Skin assessed and no wounds or sores visible. Patient denies having any broken skin or sores Josephine Valverde RN 12/22/222355 [facility] 12-22-2022 Emergency department Note Warm blankets provided to patient Josephine Valverde RN 12/22/222105 [facility] 12-22-2022 Emergency department Note Patient ambulated to restroom with IV pole. No difficulty Josephine Valverde RN 12/22/222038 [facility] 12-22-2022 Emergency department Note Patient appears to be in no acute distress. Respirations even and non labored. A&O x3. Bed locked, in low position, and call light within reach. No further needs. Spouse at bedside Josephine Valverde RN 12/22/222035 [facility] 12-22-2022 Note Questionable circumf erential wall thickening of the rectum, please correlate with clinical concern for colitis. Further evaluation with direct visualization may be obtained as indicated. Splenomegaly. Nonobstructing right renal calculi. Report Dictated on Electronically Signed By: Ryan White Electronically Signed Date/Time: 12/22/2022 8:01 PM [facility] [employer] 12-22-2022 Emergency department Note Patient at bedside with urinal Josephine Valverde RN 12/22/22 192 [facility] 12-22-2022 Emergency department Triage note Patient arrived [...] past week. Patient is A&Ox4. at bedside. [facility] 12-22-2022 Physician Emergency department Note Patient signed [...] to accept patient for telemetry admission at [facility]. Rubén Hoang DO 12/23/[address] [facility] 12-05-2022 Telephone encounter Note LVM requesting return call to confirm surgical itinerary was received for surgery scheduled 01/05/[address] Fang[address] [facility] 12-05-2022 Miscellaneous Notes LVM requesting return call to confirm surgical itinerary was received for surgery scheduled 01/05/[address] Fang. LVM asking patient to call back to confirm surgery dates. Name of caller: Kingsley Contact phone number: [phone] Relationship to Patient: spouse/SO Provider: Dr Ruperto [...] @ 11:00am. documented in this encounter [facility] 11-27-2022 Telephone encounter Note LVM asking patient to call back to confirm surgery dates. [facility] 11-27-2022 Miscellaneous Notes LVM asking patient to call back to confirm surgery dates. Name of caller: Kingsley Contact phone number: [phone] Relationship to Patient: spouse/SO Provider: Dr Ruperto [...] @ 11:00am. documented in this encounter [facility] 11-26-2022 Telephone encounter Note Name of caller: Kingsley Contact phone number: [phone] Relationship to Patient: spouse/SO Provider: Dr Ruperto [...] hours to return their call: No [facility] 11-26-2022 Miscellaneous Notes Name of caller: Kingsley Contact phone number: [phone] Relationship to Patient: spouse/SO Provider: Dr Ruperto [...] @ 11:00am. documented in this encounter [facility] 11-20-2022 Telephone encounter Note LVM for patient to return call to schedule surgery. Offering 12/16/22 @ 11:00am. [facility] 11-20-2022 Miscellaneous Notes LVM for patient to return call to schedule surgery. Offering 12/16/22 @ 11:00am. documented in this encounter [facility] 11-07-2022 History of Present illness Narrative Images from the original note were not included. [facility] - Surgery [facility] Physicians Surgery Patient Name: Woody Ni Date: [...] and no gallstones, however. US 07/08/22 @ [facility] IMPRESSION: Slightly coarsened hepatic echotexture with [...] chart review was performed. Patient Care Team: Jain Quezada as PCP - General Ana Callaway MD (Gastroenterology) hf documented in this encounter [facility] 07-11-2022 Miscellaneous Notes Called and spoke to Christie. They are going to call [facility] to get setup for the EGD and [...] Munira Staley PA-C documented in this encounter [facility] 07-08-2022 Miscellaneous Notes Order placed, please advise [...] Munira Staley PA-C documented in this encounter [facility] 07-08-2022 History of Present illness Narrative Radiology [...] 2022 9:12 AM documented in this encounter [facility] 06-25-2022 Instructions Munira Staley PA-C - 06/25/2022 [...] alleviate reflux symptoms. documented in this encounter [facility] 06-25-2022 History of Present illness Narrative CHIEF [...] (FLONASE) 50 mcg/actuation nasal spray Use 1 [place] in the nose once daily as needed. [...] which included preparing to see the patient, juza-xt-iurl patient care, completing clinical documentation, obtaining and/or reviewing separately obtained history, performing a medically appropriate examination, counseling and educating the patient/family/caregiver, ordering medications, tests, or procedures, communicating with other HCPs (not separately reported), independently interpreting results (not separately reported), communicating results to the patient/family/caregiver, and care coordination (not separately reported). Munira Staley PA-C June 25, 2022 3:38 PM documented in this encounter [facility] 06-06-2022 Note Hospitalist Discharg e Summary Patient [...] to diuretic Hyponatremia-likely. [place] Nausea vomiting resolved Tjaciy-stngxcq-ovkocacmvt DENNYS-resolved Hypokalemia Alcohol use disorder Hypertension Hypothyroidism [...] Results Component Valu (more content not included)... [facility] 06-06-2022 Hospital course Narrative Images from the [...] to diuretic Hyponatremia-likely. [place] Nausea vomiting resolved Ukcxvk-hkgjtvy-xappazfoqx DENNYS-resolved Hypokalemia Alcohol use disorder Hypertension Hypothyroidism [...] and B12: Lab Results Component Value Date [id number] 725 06/04/2022 , No results found for: [...] Medicine ACCESSION EXAM DATE/TIME PROCEDURE ORDERING PROVIDER [id number] 06/06/2022 12:02 EDT NM Gastric Emptying [id number] -JUAN IFIJEN Study CPT code 31026 Reason For Exam (NM Gastric Emptying Study) [...] Result Date: 05/15/2022 [id number] Tomography ACCESSION EXAM DATE/TIME PROCEDURE ORDERING PROVIDER [id number] 05/15/2022 17:[address] Abdomen/Pelvis (No MD AMADA, HANY T PO, No IV) CPT code 84337 Reason For Exam (CT Abdomen/Pelvis (No PO, [...] Your Medications These medications were sent to [address] - P [phone] - F [phone] [place] [address] folic acid 1 MG tablet levothyroxine 50 [...] made to ensure accuracy; however, inadvertent computerized planning technician errors may be present. documented in this encounter [facility] Work Phone: 06-05-2022 History of Present illness Narrative Images from the original note were not included. Hospitalist Progress Note 06/05/2022 [phone]: Please page me ([phone]) for patient care issues. [phone]: Please page IMS night Hospitalist for any [...] MD Division of Hospitalist Medicine Inpatient Medical Services/[facility] PAGER: [phone] CIWA score increasing, orders placed for Ativan [...] ROM Expected Impact [] POA Clarified [] DATA DELIVERABLES MANAGER Avoided [] Nursing Function [] Provider Function for [name] [x] Orders Placed [] Symptom Assessment [] Patient Experience [] Patient / Caregiver Conversation Physical Therapy Facility/Department: [facility] Physical Therapy Initial Assessment Name: Woody [...] functional independence and safety with mobility. Rec [facility] PT and assist prn. Therapy Prognosis: [...] at home due to poor endurance. Rec [facility] upon discharge. Barriers to Learning: none [...] and/or [facility] Safety Devices Type of Devices: All [...] Ambulation Assistance: Independent Transfer Assistance: Independent Active Farm Adviser: No Patient's Farm Adviser Info: Christie Mode of Transportation: Car Education: [...] 10 Krystle Bull PT Occupational Therapy Facility/Department: [facility] Occupational Therapy Initial Assessment Name: Woody [...] above performance deficits. Recommend planned d/c for [facility] OT with assist PRN. Prognosis: Good [...] Ambulation Assistance: Independent Transfer Assistance: Independent Active Farm Adviser: No Patient's Farm Adviser Info: Christie Objective Heart Rate: 95 Heart [...] Education Outcome: Verbalized understanding;Demonstrated understanding AM-PAC Score AM-[facility] Inpatient Daily Activity Raw Score: 19 (06/04/22 [...] ROM Expected Impact [] POA Clarified [] DATA DELIVERABLES MANAGER Avoided [] Nursing Function [x] Provider Function for [name] [x] Orders Placed [] Symptom Assessment [] Patient Experience [x] Patient / Caregiver Conversation Physical Therapy Facility/Department: [facility] Name: Woody Ni : 1960 Date [...] included. Hospitalist Progress Note 06/04/2022 9:54 AM [phone]: Please perfect serve me for patient care issues. [phone]: Please page IMS night Hospitalist for any [...] dehydration. Pt reportedly had a syncopal episode REPLENISHER with hypotension. EMS reported that pt had [...] Anthropometric Measures: Height: 5' 10" (177.8 cm) [place] Body Weight (IBW): 166 lbs (75 kg) [...] Used for Energy Requirements: Current Energy (kcal/day): 7185-4374 kcals (25-30) Weight Used for Protein Requirements: [...] Nutrition Supplement Kristine George RD, LD Contact: *[phone] documented in this encounter [facility] Work Phone: [...] vomiting Persistent vomiting documented in this encounter [facility] Phone: Evaluation note* Diagnosis Abnormal CT [...] liver function study documented in this encounter [facility] note* Diagnosis Hydrops of gallbladder- Primary RUQ pain Abdominal pain, right upper quadrant documented in this encounter [facility] note* Diagnosis History of hepatitis C Personal history of other infectious and parasitic disease documented in this encounter [facility] note* Diagnosis Ascites due to alcoholic cirrhosis (CMS/HCC) (HCC)- Primary documented in this encounter [facility] note* Diagnosis Encounter for postoperative care- Primary Gallbladder sludge 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) documented in this encounter [facility] note* Diagnosis Hyponatremia- Primary Hyposmolality and/or hyponatremia Hyponatremia Hyposmolality and/or hyponatremia Alcohol dependence with unspecified alcohol-induced disorder (HCC) Chronic pain syndrome Myalgia Unspecified myalgia and myositis Acute kidney injury (CMS/HCC) (HCC) documented in this encounter [facility] note* Diagnosis Alcohol withdrawal syndrome without complication (HCC)- Primary Alcohol use disorder Alcohol withdrawal syndrome without complication (HCC) Severe alcohol use disorder (HCC) Severe malnutrition (CMS/HCC) (HCC) Nutritional marasmus documented in this encounter [facility] note* Diagnosis Hyponatremia- Primary Hyposmolality and/or hyponatremia Hyponatremia Hyposmolality and/or hyponatremia [place] (acute kidney injury) (CMS/HCC) (HCC) Severe malnutrition (CMS/HCC) (HCC) Nutritional marasmus documented in this encounter [facility] note* Diagnosis Hyponatremia- Primary Hyposmolality and/or hyponatremia Hyponatremia Hyposmolality and/or hyponatremia Severe alcohol use disorder (HCC) Severe malnutrition (CMS/HCC) (HCC) Nutritional marasmus Recurrent falls [facility] Diagnosis Alcohol induced acute pancreatitis without necrosis or infection- Primary Alcohol induced acute pancreatitis without necrosis or infection Alcohol use disorder, severe, dependence (HCC) Nausea and vomiting, unspecified vomiting type Chronic pain syndrome Alcohol withdrawal syndrome with complication (HCC) Repeated falls Severe alcohol use disorder (HCC) Moderate malnutrition (CMS/HCC) (HCC) documented [facility]* Diagnosis Severe alcohol use disorder (HCC) documented [facility]* Diagnosis Alcohol withdrawal syndrome without complication (HCC)- Primary Alcohol withdrawal syndrome without complication (HCC) COVID-19 Leg edema Edema Other pancytopenia (CMS/HCC) (HCC) Other pancytopenia Alcoholic cirrhosis of liver without ascites (CMS/HCC) (HCC) 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, recurrent episode, mild Other pancytopenia (CMS/HCC) (HCC) Other pancytopenia documented in this encounter [facility]* Diagnosis Hyponatremia- Primary Hyposmolality and/or hyponatremia Hyponatremia Hyposmolality and/or hyponatremia Alcoholic intoxication without complication (CMS/HCC) (HCC) Alcohol withdrawal syndrome without complication (HCC) High anion gap metabolic acidosis documented in this encounter [facility]* Diagnosis Syncope, unspecified syncope type- Primary Elevated lactic acid level documented [facility]* Diagnosis Alcohol use disorder- Primary Alcohol use disorder documented [facility]* Diagnosis Metabolic acidosis, increased anion gap- Primary Metabolic acidosis, increased anion gap Ketosis (HCC) Acidosis Alcohol use Other problems related to lifestyle Hypokalemia Hypopotassemia Hypomagnesemia Disorders of magnesium metabolism documented in this encounter [facility]* Diagnosis Right upper quadrant abdominal pain- Primary Gallbladder sludge Alcoholic cirrhosis of liver without ascites (CMS/HCC) (HCC) documented [facility]* Diagnosis Preop examination- Primary Unspecified pre-operative examination Right upper quadrant pain Abdominal pain, right upper quadrant Other specified diseases of gallbladder documented [facility]* Diagnosis Acute kidney injury (CMS/HCC) (HCC)- Primary Acute kidney injury (CMS/HCC) (HCC) DENNYS (acute kidney injury) (CMS/HCC) (HCC) DENNYS (acute kidney injury) (CMS/HCC) (HCC) Right upper quadrant pain Abdominal pain, right upper quadrant Other specified diseases of gallbladder documented in this encounter [facility]* Diagnosis Gallbladder sludge- Primary RUQ pain Abdominal pain, right upper quadrant Right upper quadrant pain Abdominal pain, right upper quadrant Other specified diseases of gallbladder RUQ pain Abdominal pain, right upper quadrant Acute on chronic cholecystitis 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) [facility] Attachments The following attachments cannot be sent through Care Everywhere. * Alcohol Withdrawal Discharge Instructions (Hebrew) [facility] Attachments The following attachments cannot be sent through Care Everywhere. * Syncope (Fainting) (Hebrew) [facility] Outpatient Procedure (Routine) - Pending Review Specialty Diagnoses / Procedures Referred By Magalie lawson Referred To Contact [facility] Diagnoses Abnormal CT scan, stomach History of esophageal varices Procedures EGD DIAGNOSTIC ESOPHAGOGASTRODUODENOS COPY TRANSORAL DIAGNOSTIC Munira Staley PA-C [address] [place] [address] [facility] [address] [place] [address] Referral ID Status Reason Start Date Expiration Date Visits Requested Visits Authorized [id number] Pending Review Auto-Generat ed Referral 06/25/2022 06/25/2023 1 1 * Diagnostic Procedure Only (Routine) - Pending Review Specialty Diagnoses / Procedures Referred By Magalie lawson Referred To Contact [facility] IMAGING Diagnoses History of hepatitis C Procedures US ABD RT UPPER QUADRANT US ABDOMINAL REAL TIME W/IMAGE LIMITED Munira Staley PA-C [address] [place] [address] Us Imaging Referral ID Status Reason Start Date Expiration Date Visits Requested Visits Authorized [id number] Pending Review Auto-Generat ed Referral 06/25/2022 07/25/2023 1 [facility] Procedure Only (Routine) - Closed Specialty Diagnoses / Procedures Referred By Magalie t Referred To Contact US IMAGING Diagnoses History of hepatitis C Procedures US ABD RT UPPER QUADRANT US ABDOMINAL REAL TIME W/IMAGE LIMITED Munira Staley PA-C [address] [place] [address] Us Imaging Referral ID Status Reason Start Date Expiration Date V isits Requested Visits Authorized [id number] Closed Auto-Generate d Referral 06/25/2022 07/25/2023 1 1 [facility] Summary Purpose Family History No Family History [...] Documents on File Type Date Recorded 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 Advance Directives and Living Will Power of Tanker Serviceman Documents on File Type Date Recorded 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 ACP-Advance Directive ACP-Power of Tanker Serviceman Latest Code Status on File Code Status [...] pain Procedures CONSULT TO GENERAL SURGERY OFFICE/OUTPATIENT [facility] 60-74 MINUTES Munira Staley PA-C [address] [place] [address] Referral ID Status Reason Start Date Expiration Date Visits Requested Visits Authorized [id number] Authorized PCP Requested Referral 07/08/2022 07/08/2023 1 1 Specialty Diagnoses / Procedures Referred By Contac t Referred To Contact Ced Koenig MD [address], [address] [address] Referral ID Status Reason Start Date Expiration Date Visits Re quested Visits Authorized [id number] Closed 1 1 Specialty Diagnoses / Procedures Referred By Contac t Referred To Contact Genna Castro DO [address] [place] [address] Referral ID Status Reason Start Date Expiration Date Visits Re quested Visits Authorized [id number] Closed 1 1 Additional Source Comments (unrecognized sect ion and content) No Status Records FoundNo Status Records FoundNo Status Records FoundNo Status Records FoundNo Status Records FoundNo Status Records FoundNo Status Records Found INFORMATION SOURCE (unrecogn ized section and content) DATE CREATED AUTHOR 04/14/2018 [facility] DATE CREATED AUTHOR AUTHOR'S ORGANIZ ATION 07/16/[address] [facility] DATE CREATED AUTHOR AUTHOR'S ORGANIZ ATION 10/25/2023 [facility] DATE CREATED AUTHOR AUTHOR'S ORGANIZ ATION 12/30/2023 [facility] DATE CREATED AUTHOR AUTHOR'S ORGANIZ ATION 04/20/2024 [facility] DATE CREATED AUTHOR AUTHOR'S ORGANIZ ATION [facility] DATE CREATED AUTHOR AUTHOR'S ORGANIZ ATION 12/18/[address] [facility] Reason for Visit [...] Vomiting Gas, stomach upset. EGD 05/06/22 at [facility] Reason Comments Results Reason Comments Radiology US Specialty Diagnoses / Procedures Referred By Contac t Referred To Contact US IMAGING Diagnoses History of hepatitis C Procedures US ABD RT UPPER QUADRANT US ABDOMINAL REAL TIME W/IMAGE LIMITED Munira Staley PA-C [address] [place] [address] Us Imaging Referral ID Status Reason Start Date Expiration Date V isits Requested Visits Authorized [id number] Closed Auto-Generate d Referral 06/25/2022 07/25/2023 1 [...] Kacie Benz, DO [address] [place] [address] [facility] 2e Telemetry [address] [place] [address] Referral ID Status Reason Start Date Expiration Date Visits Re quested Visits Authorized [id number] 1 1 Reason Onset Date Comments Hospital Follow-up 02/16/2023 Reason Onset Date Comments Hospital Follow-up 04/05/2023 Reason Comments Alcohol Problem Specialty Diagnoses / Procedures Referred By Contac t Referred To Contact Diagnoses Alcohol withdrawal syndrome without complication (HCC) Alcohol use disorder Procedures . Maxwell Hinson MD [address] [place] [address] [facility] Detox [address] [place] [address] Referral ID Status Reason Start Date Expiration Date Visits Re quested Visits Authorized [id number] 1 1 Reason Comments Abdominal Pain Specialty Diagnoses / Procedures Referred By Contac t Referred To Contact Diagnoses Hyponatremia Procedures E87.1 Rhiannon Barker MD [address] [facility] [address] [place] [address] [facility] 2e Telemetry [address] [place] [address] Referral ID Status Reason Start Date Expiration Date Visits Re quested Visits Authorized [id number] 1 1 Reason Onset Date Comments Cancelled Appointment 05/26/2023 05/26/2023 at 08;00 Reason Onset Date Comments Advice Only 01/12/2023 Reason Comments Fall Specialty Diagnoses / Procedures Referred By Contac t Referred To Contact Diagnoses Hyponatremia Procedures . Kacie Benz DO [address] [place] [address] [facility] Emergency Dept [address] [place] [address] Referral ID Status Reason Start Date Expiration Date Visits Re quested Visits Authorized [id number] 1 1 Reason Comments Vomiting Pt comes [...] Kacie Benz DO [address] [place] [address] [facility] Emergency Dept [address] [place] [address] Referral ID Status Reason Start Date Expiration Date Visits Re quested Visits Authorized [id number] 1 1 Reason Comments Vomiting Withdrawal Alcohol Specialty Diagnoses / Procedures Referred By Contac t Referred To Contact Diagnoses Alcohol withdrawal syndrome without complication (HCC) Procedures .. Hayes Scott MD [address] [place] [address] [facility] Emergency Dept [address] [place] [address] Referral ID Status Reason Start Date Expiration Date Visits Re quested Visits Authorized [id number] 1 1 Reason Onset Date Comments Med [...] use disorder Procedures - Kiel King MD [address] [place] [address] [facility] 4s Msu [address] [place] [address] Referral ID Status Reason Start Date Expiration Date Visits Re quested Visits Authorized [id number] 1 1 Reason Comments Dizziness Vomiting Alcohol Problem Specialty Diagnoses / Procedures Referred By Contac t Referred To Contact Diagnoses Ketosis (HCC) Alcohol use Metabolic acidosis, increased anion gap Procedures . 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 Reason Onset Date Comments Surgery Scheduling 11/20/2022 Reason Comments Vomiting Specialty Diagnoses / Procedures Referred By Contac t Referred To Contact Diagnoses DENNYS (acute kidney injury) (CMS/HCC) (HCC) Acute kidney injury (CMS/HCC) (HCC) Procedures N17.9 Kacie Benz, DO [address] [place] [address] [facility] Telemetry [address] [place] [phone] Referral ID Status Reason Start Date Expiration Date Visits Re quested Visits Authorized [id number] 1 Reason Onset Date Comments Hospital Follow-up 12/27/2022 Specialty Diagnoses / Procedures Referred By Contac t Referred To Contact Diagnoses Right upper quadrant pain Other specified diseases of gallbladder Right upper quadrant pain [R10.11] Other specified diseases of gallbladder [K82.8] Procedures LA LAPAROSCOPY SURG CHOLECYSTECTOMY LAPAROSCOPIC CHOLECYSTECTOMY, POSSIBLE OPEN Ruperto Fang MD [address] [place] [address] [address] [place] [address] [facility] Main Or [address] [place] [address] Referral ID Status Reason Start Date Expiration Date Visits Re quested Visits Authorized [id number] 1 Reason Onset Date Comments Sinusitis [...] Other - Comment: ok to hold per [facility])1236 (Held by provider - Provider: LEAH Lopez [...] Pat RN)1700 (Due - Provider: Yazmin Bermudez [facility]) pantoprazole (PROTONIX) tablet 40 mg 40 [...] crush or break. 0759 (Given - Provider: Gibarn Mahajan, MEGGAN) 0817 (Given - Provider: Gibran [...] Nixon RN) 0732 (Given - Provider: Thanh Hayes RN)1106 (Given - Provider: Lynne Moser, RN)1600 [...] Kirk, MEGGAN) 0624 (Given - Provider: Cuco Cancion, RN) 0732 (Given - Provider: Thanh Hayes, [...] chew, or split. 0815 (Given - Provider: Shakila Damon RN) [...] Luna RN) 0016 (Given - Provider: Radha Man RN)0621 (Given - Provider: Radha Man RN) [...] 0834 (Given - Provider: Melissa De Luna, MEGGAN)1600 (Given - Provider: Melissa De Luna [...] Radha Man, MEGGAN) 2112 (Given - Provider: Radha Man, MEGGAN) Scheduled Medication Order 04/13/2023 04/14/2023 [...] Lea Kim RN)1209 (Given - Provider: Lea Kmi RN)1606 (Given - Provider: Lea Kim RN) [...] Leonora Contreras RN)0900 (Not Given - Provider: Leonroa Contreras RN - Reason: Patient/family refused) 0900 [...] 0826 (Given - Provider: Lea Kim RN) Continuous Medication Order 07/03/2023 07/04/2023 07/05/2023 [...] further options ordered. 626 (Given - Provider: Loenora Leon RN) 040 (Given - Provider: Thaddeus [...] sedation for opioid reversal - MUST notify extrusion die template maker provider immediately after first dose, may give [...] Provider: Tiny Yang RN)1028 (Given - Provider: Dedar Raymundo RN) labetalol (Normodyne,Trandate) injection 10 mg [...] vomiting, Starting on Thu01/19/24 at 1255, Give LA if patient is unable to take orally. [...] Raymundo, MEGGAN)1520 (Given - Provider: Dedra Raymundo, MEGGAN) sodium chloride 0.9 % bolus 30 mL [...] vomiting, Starting on Thu01/19/24 at 1255, Give LA if patient is unable to take orally. [...] at 2140 0840 (Given - Provider: Haydee Berad LPN) 0848 (Given - Provider: Haydee Beard [...] chew, or split. 0823 (Given - Provider: Edilberto Grove RN) [...] 0804 (Given - Provider: Jose Luna, RN) Continuous Medication Order 12/23/2022 12/24/2022 [...]
Care Teams (unrecognized sec tion and content) Carroting Machine Offbearer Relationship Specialty Start Date End Date Jani Quezada MD PCP - General 09/06/15 Carroting Machine Offbearer Relationship Specialty Start Date End Date Jani Quezada MD PCP - General 09/06/15 Carroting Machine Offbearer Relationship Specialty Start Date End Date Jani Quezada [address] [place] [address] PCP - General Internal Medicine 05/26/17 Carroting Machine Offbearer Relationship Specialty Start Date End Date Jani Quezada [address] [place] [address] PCP - General Internal Medicine 05/26/17 Carroting Machine Offbearer Relationship Specialty Start Date End Date Jani Quezada [address] [place] [address] PCP - General Internal Medicine 05/26/17 Carroting Machine Offbearer Relationship Specialty Start Date End Date Jani Quezada [address] [place] [address] PCP - General 09/06/15 Ana Callaway MD [address] [place] [address] Gastroenterology 11/07/22 Carroting Machine Offbearer Relationship Specialty Start Date End Date Jani Quezada [address] [place] [address] PCP - General 09/06/15 Ana Callaway MD [address] [place] [address] Gastroenterology 11/07/22 Carroting Machine Offbearer Relationship Specialty Start Date End Date Jani Quezada [address] [place] [phone] PCP - General 09/06/15 Ana Callaway MD [address] [place], [place] [phone] Gastroenterology 11/07/22 Carroting Machine Offbearer Relationship Specialty Start Date End Date Jani Quezada [address] [place] [address] PCP - General 09/06/15 Ana Callaway MD [address] [facility] [address] [place], [place] [phone] Gastroenterology 11/07/22 Carroting Machine Offbearer Relationship Specialty Start Date End Date Jani Quezada [address] [place] [address] PCP - General 09/06/15 Ana Callaway MD [address] [facility] [address] [place], [place] [phone] Gastroenterology 11/07/22 Carroting Machine Offbearer Relationship Specialty Start Date End Date Jani Quezada [address] [place] [address] PCP - General 09/06/15 Ana Callaway MD [address] [facility] [address] [place], [place] [phone] Gastroenterology 11/07/22 Carroting Machine Offbearer Relationship Specialty Start Date End Date Jani Quezada [address] [place] [address] PCP - General 09/06/15 Ana Callaway MD [address] [place] [address] Gastroenterology 11/07/22 Carroting Machine Offbearer Relationship Specialty Start Date End Date Jani Quezada [address] [place] [phone] PCP - General 09/06/15 Ana Callaway MD [address] [place] [address] Gastroenterology 11/07/22 Carroting Machine Offbearer Relationship Specialty Start Date End Date Jani Quezada [address] [place] [phone] PCP - General 09/06/15 Ana Callaway MD [address] [place] [address] Gastroenterology 11/07/22 Carroting Machine Offbearer Relationship Specialty Start Date End Date Jani Quezada [address] [place] [phone] PCP - General 09/06/15 Ana Callaway MD [address] [place] [address] Gastroenterology 11/07/22 Carroting Machine Offbearer Relationship Specialty Start Date End Date Jani Quezada [address] [place] [phone] PCP - General 09/06/15 Ana Callaway MD [address] [place], [place] [phone] Gastroenterology 11/07/22 Lea Koehler, siphon operatorClaims Vice President Three Dimensional Map Modeler 04/16/2303/20 Carroting Machine Offbearer Relationship Specialty Start Date End Date Jani Quezada [address] [place] [address] PCP - General 09/06/15 Ana Callaway MD [address] [place], [place] [phone] Gastroenterology 11/07/22 Carroting Machine Offbearer Relationship Specialty Start Date End Date Jani Quezada [address] [place] [address] PCP - General 09/06/15 Ana Callaway MD [address] [place], [place] [phone] Gastroenterology 11/07/22 Carroting Machine Offbearer Relationship Specialty Start Date End Date Jani Quezada [address] [place] [address] PCP - General 09/06/15 Ana Callaway MD [address] [place], [place] [phone] Gastroenterology 11/07/22 Carroting Machine Offbearer Relationship Specialty Start Date End Date Jani Quezada [address] [place] [address] PCP - General 09/06/15 Ana Callaway MD [address] [place] [address] Gastroenterology 11/07/22 Carroting Machine Offbearer Relationship Specialty Start Date End Date Jani Quezada [address] [place] [address] PCP - General 09/06/15 Ana Callaway MD [address] [place], [place] [phone] Gastroenterology 11/07/22 Carroting Machine Offbearer Relationship Specialty Start Date End Date Jani Quezada [address] [place] [phone] PCP - General 09/06/15 Ana Callaway MD [address] [place] [address] Gastroenterology 11/07/22 Carroting Machine Offbearer Relationship Specialty Start Date End Date Jani Quezada [address] [place] [phone] PCP - General 09/06/15 Ana Callaway MD [address] [place], [place] [phone] Gastroenterology 11/07/22 Carroting Machine Offbearer Relationship Specialty Start Date End Date Jani Quezada [address] [place] [address] PCP - General 09/06/15 Ana Callaway MD [address] [place] [address] Gastroenterology 11/07/22 Carroting Machine Offbearer Relationship Specialty Start Date End Date Jani Quezada [address] [place] [phone] PCP - General 09/06/15 Ana Callaway MD [address] [place] [address] Gastroenterology 11/07/22 Carroting Machine Offbearer Relationship Specialty Start Date End Date Jani Quezada [address] [place] [phone] PCP - General 09/06/15 Ana Callaway MD [address] [place] [address] Gastroenterology 11/07/22 Carroting Machine Offbearer Relationship Specialty Start Date End Date Jani Quezada [address] [place] [phone] PCP - General 09/06/15 Ana Callaway MD [address] [place] [address] Gastroenterology 11/07/22 Carroting Machine Offbearer Relationship Specialty Start Date End Date Jani Quezada [address] [place] [phone] PCP - General 09/06/15 Ana Callaway MD [address] [place] [address] Gastroenterology 11/07/22 Carroting Machine Offbearer Relationship Specialty Start Date End Date Jani Quezada [address] [place] [phone] PCP - General 09/06/15 Ana Callaway MD [address] [place] [address] Gastroenterology 11/07/22 Carroting Machine Offbearer Relationship Specialty Start Date End Date Jani Quezada [address] [place] [phone] PCP - General 09/06/15 Ana Callaway MD [address] [place] [address] Gastroenterology 11/07/22 Carroting Machine Offbearer Relationship Specialty Start Date End Date Jani Quezada [address] [place] [address] PCP - General 09/06/15 Ana Callaway MD [address] [place] [address] Gastroenterology 11/07/22 Carroting Machine Offbearer Relationship Specialty Start Date End Date Jani Quezada [address] [place] [phone] PCP - General 09/06/15 Ana Callaway MD [address] [facility] [address] [place] [address] Gastroenterology 11/07/22 Carroting Machine Offbearer Relationship Specialty Start Date End Date Bryant Jani [address] [place] [address] PCP - General 09/06/15 Ana Callaway MD [address] [facility] [address] [facility] [address] [place], [place] [phone] Gastroenterology 11/07/22 Carroting Machine Offbearer Relationship Specialty Start Date End Date ChrisJani kidd [address] [place] [address] PCP - General 09/06/15 Ana Callaway MD [address] [facility] [address] [place] [address] Gastroenterology 11/07/22 Carroting Machine Offbearer Relationship Specialty Start Date End Date ChrisJani kidd [address] [place] [address] PCP - General 09/06/15 Ana Callaway MD [address] [facility] [address] [place] [address] Gastroenterology 11/07/22 Carroting Machine Offbearer Relationship Specialty Start Date End Date ChrisJani kidd [address] [place] [address] PCP - General 09/06/15 Ana Callaway MD [address] [facility] [address] [facility] [address] [place] [address] Gastroenterology 11/07/22 Carroting Machine Offbearer Relationship Specialty Start Date End Date Jani Quezada [address] [place] [phone] PCP - General 09/06/15 Ana Callaway MD [address] [place] [address] Gastroenterology 11/07/22 Carroting Machine Offbearer Relationship Specialty Start Date End Date Jani Quezada [address] [place] [address] PCP - General 09/06/15 Ana Callaway MD [address] [place], [place] [phone] Gastroenterology 11/07/22 Carroting Machine Offbearer Relationship Specialty Start Date End Date Jani Quezada [address] [place] [phone] PCP - General 09/06/15 Ana Callaway MD [address] [place] [address] Gastroenterology 11/07/22 Carroting Machine Offbearer Relationship Specialty Start Date End Date Jani Quezada [address] [place] [phone] PCP - General 09/06/15 Ana Callaway MD [address] [place] [address] Gastroenterology 11/07/22 Carroting Machine Offbearer Relationship Specialty Start Date End Date Jani Quezada [address] [place] [phone] PCP - General 09/06/15 Ana Callaway MD [address] [place] [address] Gastroenterology 11/07/22 Carroting Machine Offbearer Relationship Specialty Start Date End Date Jani Quezada [address] [place] [phone] PCP - General 09/06/15 Ana Callaway MD [address] [facility] [address] [place], [place] [phone] Gastroenterology 11/07/22 Carroting Machine Offbearer Relationship Specialty Start Date End Date Jani Quezada [address] [place] [phone] PCP - General 09/06/15 Ana Callaway MD [address] [facility] [address] [place], [place] [phone] Gastroenterology 11/07/22 Source Comments (unrecognize d section and content) In the event this informatio n is protected by the Federal Confidentiality of Alcohol and Drug Abuse Patient Records regulations: The Federal rules restrict any use of the information to criminally investigate or prosecute any alcohol or drug abuse patient.[facility] the event this information is protected by the Federal Confidentiality of Alcohol and Drug Abuse Patient Records regulations: The Federal rules restrict any use of the information to criminally investigate or prosecute any alcohol or drug abuse patient.[facility] the event this information is protected by the Federal Confidentiality of Alcohol and Drug Abuse Patient Records regulations: The Federal rules restrict any use of the information to criminally investigate or prosecute any alcohol or drug abuse patient.[facility] the event this information is protected by the Federal Confidentiality of Alcohol and Drug Abuse Patient Records regulations: The Federal rules restrict any use of the information to criminally investigate or prosecute any alcohol or drug abuse patient.[facility] FOR RECORDS PERTAINING TO PATIENTS WHO ARE [...] BE BASED ON THE PRIMARY CLINICAL RECORDS. [facility] [employer]. provides no warranty or guarantee of the accuracy or completeness of information in this document.
[2025-05-08 02:05] LABS: Magnesium 1.5 mg/dL (1.5-2.2)
--- OUTSIDE RECORDS SUMMARY | 2025-05-08 02:22 | XMS RPT_ITS | CCD ---
Author Organization [facility] Care Team Providers Care Service Parts Driver Name Role Phone ABEL HOLDER Unavailable Unavailable AN NEISHAABDI DAS Unavailable Unavailable ABEL HOLDER Unavailable Unavailable ABEL HOLDER Unavailable Unavailable JADA OCONNOR () Unavailable Unavailable Jani Quezada Primary Care Provider [phone] Jani Quezada Primary Care Provider [phone] Jani Quezada MD Primary Care Provider Jani Quezada Primary Care Provider [phone] Jani Quezada Referring Unavailable Hany Ybarra Attending Unavailable Jani Quezada Primary Care Unavailable Ashlyn Atkinson Attending Unavailable Jani Quezada Referring Unavailable Jani Quezada Primary Care Unavailable Jani Quezada Primary Care Provider Ana Callaway MD Unavailable Jani Quezada Primary Care Provider Ana Callaway MD Unavailable Lea Koehler RN [...] source) Allopurinol Drug Allergy 7 Other [facility] Opioid Agonists (1 source) Codeine Drug Allergy 3 Nausea Only [facility] Penicillins (antibiotic) (1 source) Penicillin G Drug Allergy 7 Swelling [facility] (20 sources) allopurinol; Translations: [ALLOPURINOL] Drug Allergy 7 Other: See Comments, Other [facility] Repository (6 sources) penicillin; Translations: [PENICILLIN] Drug Allergy 7 Swelling [facility] Repository (6 sources) Penicillins; Translations: [PENICILLINS] Propensity to adverse reactions to drug 7 [place] (20 sources) Penicillin G Drug Allergy 7 Swelling [facility] (20 sources) Codeine; Translations: [CODEINE] Drug Allergy 3 Nausea Only [facility] (1 source) Codeine Drug Allergy 4 [facility] Repository (1 source) Penicillins Drug allergy (disorder) 4 [facility] Repository (4 sources) Lactose (non-medical use) Propensity to adverse reactions 4 [facility] Medications Current Medications Medication Drug Class(es) [...] 1) 21 MG/24HR patch 1 patch nystatin [id number] unt/ml topical cream (4 sources) Polyene Antifungal [...] 0 04/15/2023 Discontinued (Stop taking at discharge) [id number] 200 actuat albuter ol 0.09 mg/actuat metered [...] LONASE) 50 mcg/actuation nasal spray Use 1 Wheeler in the nose once daily as needed. 0 04/27/2017 Active End: 01-28-2023 fluticasone (Flonase) 50 MCG /ACT nasal spray Every 24 hours. 0 01/28/2023 Discontinued (Duplicate order) Comment on above: Use 1 Wheeler in the n ose once daily as [...] % infusion 0.5 ml heparin sodium, porcine 66187 unt/ml prefilled syringe (2 sources) Unfractionated Heparin, [...] 60 mg/min in adults. polyethylene glycol 3350 10424 mg powder for oral solution (16 sources) [...] Onset: 06-04-2022 Chronic Other aftercare (2 sources) 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 (current) use of oral hypoglycemic drugs; Translations: [assisted (current) use of oral hypoglycemic drugs] Onset: 06-04-2022 Episodic Other aftercare (2 sources) 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 (current) use of bisphosphonates; Translations: [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 (current) use of bisphosphonates] Onset: 06-04-2022 Episodic Other aftercare (2 sources) assisted (current) use of opiate analgesic; Translations: [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 (current) use of opiate analgesic] Onset: 06-04-2022 Episodic Other aftercare (2 sources) Other housing counselor (current) drug therapy; Translations: [Other penitentiary (current) drug therapy] Onset: 05-15-2022 Episodic Other [...] Results Test Name Value Interpretation Reference Range [facility]COORD 12-16-2024 [facility] 36on 10-03-[address] [place] [address] [id number] 08-01-2024 [id number] [facility] Behavioral Health Treatment Planon 08-01-2024 Behavioral Health Treatment Plan [facility] CARECOORDon 08-01-2024 [place] [facility] [place]OORD TCT brother in law, l/m re dc today [facility] IDNon 08-01-2024 IDN [facility] IDN [facility] Nursing Noteon 08-01-2024 Nursing Note Discharge instructtom salcido reviewed, all questions answered, all concerns addressed. Patient declined flu vaccine stating he will follow up with his PCP. [facility] Nursing Note [facility] Nursing Note [facility] Progress Noteon 08-01-2024 Progress Note TCT Piotr, updated re dc today. Grateful for care and tx Normal [facility] Nursing Noteon 07-31-2024 Nursing Note Patient approached R N requesting throat spray and vistaril. Patient stated he was having some pain in his throat and having some generalized anxiety. PRN vistaril and throat spray given. [facility] Nursing Note Assumed care of harika ent. Patient denies needs at this time. [facility] Nursing Note Pt pleasant, coopera tive, AOx 3, Denies pain, Denies thoughts of harm to self and others, no delusional thinking voiced. Compliant with meds. Gait steady with walker, speech clear. No s/s of physical distress noted. [facility] Nursing Note [facility] Progress Noteon 07-31-2024 Progress Note [facility] IDNon 07-30-2024 IDN [facility] IDN [facility] IDN [facility] IDN [facility] IDN [facility] Nursing Noteon 07-30-2024 Nursing Note [facility] Nursing Note Tums 500 mg given fo r indigestion at 1623. Normal [facility] Nursing Note Vistaril 50 mg PO gi oziel for anxiety after redirection was ineffective. Normal [facility] Nursing Note [facility] Nursing Note Pt complaining of restlessness and increased anxiety. Agreeable to PRN Vistaril, given at this time. Normal [facility] Progress Noteon 07-30-2024 Progress Note [facility] Progress Note [facility] BASIC METABOLIC PANELon 07-19 Anion gap [Moles/Vol] 7 mmol/L Normal 3-13 [facility] Comment on above: Performed By: #### L AB15 ####Senior Telecommunications Technician: ARA WRIGHT ([phone])[facility])[address] [place] [address] Calcium [Mass/Vol] 9.4 mg/dL Normal 8.4-10.4 [facility] Comment on above: Performed By: #### L AB15 ####Senior Telecommunications Technician: ARA WRIGHT ([id number])[facility])[address] [place] [address] Chloride [Moles/Vol] 109 mmol/L High 98-107 [facility] Comment on above: Performed By: #### L AB15 ####Senior Telecommunications Technician: ARA WRIGHT ([id number])[facility] ([facility])[address] [place] [address] CO2 [Moles/Vol] 17 mmol/L Low 22-30 [facility] Comment on above: Performed By: #### L AB15 ####Senior Telecommunications Technician: ARA WRIGHT ([id number])[facility])[address] [place] [address] Creatinine [Mass/Vol] 0.92 mg/dL Normal 0.66-1.25 [facility] Comment on above: Performed By: #### L AB15 ####Senior Telecommunications Technician: ARA WRIGHT ([id number])[facility])[address] [place] [address] GLOMERULAR FILTRATION RATE ML/MIN/1.73 SQ M.PREDICTED >90.0 Normal >60.0 [facility] Comment on above: Result Comment: Calc ulation based on the Chronic Kidney Disease Epidemiology Collaboration (CKD-EPI) equation refit without adjustment for race Performed By: #### L AB15 ####Senior Telecommunications Technician: ARA [id number])[facility] ([facility])[address] [place] [address] Glucose [Mass/Vol] 111 mg/dL High 70-100 [facility] Comment on above: Performed By: #### L AB15 ####Senior Telecommunications Technician: ARA WRIGHT ([phone])[facility] ([facility])[address] [place] [address] Potassium [Moles/Vol] 4.4 mmol/L Normal 3.5-5.1 [facility] Comment on above: Performed By: #### L AB15 ####Senior Telecommunications Technician: ARA WRIGHT ([id number])[facility] ([facility])[address] [place] [address] Sodium [Moles/Vol] 134 mmol/L Low 135-145 [facility] Comment on above: Performed By: #### L AB15 ####Senior Telecommunications Technician: ARA WRIGHT ([id number])[facility] ([facility])[address] [place] [address] Urea nitrogen [Mass/Vol] 17 mg/dL Normal 9-20 [facility] Comment on above: Performed By: #### L AB15 ####Senior Telecommunications Technician: ARA WRIGHT ([id number])[facility] ([facility])[address] [place] [address] CARECOORDon 07-29-2024 [place] Sp[address] to admissions [facility] pt will not qualify for CD treatment at facilities. [facility] [place] Normal [facility] Nursing Noteon 07-29-2024 Nursing Note [facility] Nursing Note PRN Vistaril effecti ve. Patient requesting PRN Tylenol and PRN Tums. Rates sinus pain / and has complaints of acid reflux. [facility] Nursing Note Patient requesting P RN Vistaril for anxiety rated 8/ [facility] Nursing Note [facility] Nursing Note Patient is calm and cooperative with care and medication. Alert and oriented x 3 watching TV with peers. Denies pain SI, HI, visual and Auditory hallucination. No voiced concerns or stressors at this time. Safety precaution maintained. Normal [facility] Progress Noteon 07-29-2024 Progress Note [facility] CARECOORDon 07-28-2024 [place] Normal [facility] GROUPNOTEon 07-28-2024 GROUPNOTE [facility] IDNon 07-28-2024 IDN [facility] IDN Consuming supplement s. Will increase Magic cup to tid [facility] IDN [facility] Nursing Noteon 07-28-2024 Nursing Note Tylenol 650 mg given for generalized pain, Vistaril 50 mg given for anxiety and Tums given for indigestion. Normal [facility] Nursing Note [facility] Nursing Note Vistaril 50 mg PO gi oziel for anxiety after redirection was ineffective. Normal [facility] Nursing Note Patient given Tums 5 00 mg for indigestion. Normal [facility] Progress Noteon 07-28-2024 Progress Note [facility] Progress Note [facility] Progress Note [facility] Progress Note [facility] CARECOORDon 07-27-2024 [place] TCT FARIBA, l/m [facility] IDNon 07-27-2024 IDN Normal [facility] Nursing Noteon 07-27-2024 Nursing Note [facility] Nursing Note Patient up with walk er and a steady gait. Resting in bed, social with staff and peers. Normal [facility] Nursing Note [facility] Nursing Note PRN tylenol and vist aril effective Normal [facility] Nursing Note PRN tylenol for pain and vistaril for anxiety given Normal [facility] Progress Noteon 07-27-2024 Progress Note [facility] 36on 07-26-2024 36 Called and spoke yuri Gillespie and scheduled hosp f/up with ALYSSA Armas on 09/13/2024 at 3:00 pm. Thank you [facility] BASIC METABOLIC PANELon 10-0 8-2024 Anion gap [Moles/Vol] 8 mmol/L Normal 3-13 [facility] Comment on above: Performed By: #### L AB15 ####Senior Telecommunications Technician: ARA WRIGHT ([id number])[facility] ([facility])[address] [place] [address] Calcium [Mass/Vol] 9.4 mg/dL Normal 8.4-10.4 [facility] Comment on above: Performed By: #### L AB15 ####Senior Telecommunications Technician: ARA WRIGHT ([id number])[facility] ([facility])[address] [place] [address] Chloride [Moles/Vol] 104 mmol/L Normal 98-107 [facility] Comment on above: Performed By: #### L AB15 ####Senior Telecommunications Technician: ARA WRIGHT ([id number])[facility] ([facility])[address] [place] [address] CO2 [Moles/Vol] 17 mmol/L Low 22-30 [facility] Comment on above: Performed By: #### L AB15 ####Senior Telecommunications Technician: ARA WRIGHT ([id number])[facility] ([facility])[address] [place] [address] Creatinine [Mass/Vol] 0.84 mg/dL Normal 0.66-1.25 [facility] Comment on above: Performed By: #### L AB15 ####Senior Telecommunications Technician: ARA WRIGHT ([id number])[facility] ([facility])[address] [place] [address] GLOMERULAR FILTRATION RATE ML/MIN/1.73 SQ M.PREDICTED >90.0 Normal >60.0 [facility] Comment on above: Result Comment: Calc ulation based on the Chronic Kidney Disease Epidemiology Collaboration (CKD-EPI) equation refit without adjustment for race Performed By: #### L AB15 ####Senior Telecommunications Technician: ARA WRIGHT ([id number])[facility] ([facility])[address] [place] [address] Glucose [Mass/Vol] 100 mg/dL Normal 70-100 [facility] Comment on above: Performed By: #### L AB15 ####Senior Telecommunications Technician: ARA WRIGHT ([id number])[facility])[address] [place] [address] Potassium [Moles/Vol] 4.4 mmol/L Normal 3.5-5.1 [facility] Comment on above: Performed By: #### L AB15 ####Senior Telecommunications Technician: ARA WRIGHT ([id number])[facility])[address] [place] [address] Sodium [Moles/Vol] 129 mmol/L Low 135-145 [facility] Comment on above: Performed By: #### L AB15 ####Senior Telecommunications Technician: ARA WRIGHT ([phone])[facility])[address] [place] [address] Urea nitrogen [Mass/Vol] 14 mg/dL Normal 9-20 [facility] Comment on above: Performed By: #### L AB15 ####Senior Telecommunications Technician: ARA WRIGHT ([phone])[facility])[address] [place] [address] CARECOORDon 07-26-2024 [place] TCT PRADEEP Saldaña l/m [facility] Consulton 07-26-2024 Consult Normal [facility] GROUPNOTEon 07-26-2024 GROUPNOTE Normal [facility] IDNon 07-26-2024 IDN [facility] IDN [facility] Nursing Noteon 07-26-2024 Nursing Note PRN tylenol and vist aril effective [facility] Nursing Note [facility] Nursing Note Patient became sad o olinda another patient who was confused on the unit and felt she reminded him of his mother. Patient wanted to then be in his room for a little bit and was feeling anxious. Prn PO vistaril given for anxiety. Normal [facility] Nursing Note [facility] Nursing Note PRN vistaril, tyleno l and TUMS effective Normal [facility] Nursing Note PRN Vistaril for anx iety, TUMS for heartburn, and tylenol for headache pain given. Normal [facility] Progress Noteon 07-26-2024 Progress Note Normal [facility] Progress Note [facility] Progress Note Normal [facility] Progress Note [facility] BASIC METABOLIC PANELon 10-0 Anion gap [Moles/Vol] 10 mmol/L Normal 3-13 [facility] Comment on above: Performed By: #### L AB15 ####Senior Telecommunications Technician: ARA WRIGHT ([phone])[facility])[address] [place] [address] Calcium [Mass/Vol] 9.6 mg/dL Normal 8.4-10.4 [facility] Comment on above: Performed By: #### L AB15 ####Senior Telecommunications Technician: ARA WRIGHT ([id number])[facility])[address] [place] [address] Chloride [Moles/Vol] 104 mmol/L Normal 98-107 [facility] Comment on above: Performed By: #### L AB15 ####Senior Telecommunications Technician: ARA WRIGHT ([id number])[facility] ([facility])[address] [place] [address] CO2 [Moles/Vol] 16 mmol/L Low 22-30 [facility] Comment on above: Performed By: #### L AB15 ####Senior Telecommunications Technician: ARA WRIGHT ([id number])[facility])[address] [place] [address] Creatinine [Mass/Vol] 0.84 mg/dL Normal 0.66-1.25 [facility] Comment on above: Performed By: #### L AB15 ####Senior Telecommunications Technician: ARA WRIGHT ([id number])[facility])[address] [place] [address] GLOMERULAR FILTRATION RATE ML/MIN/1.73 SQ M.PREDICTED >90.0 Normal >60.0 [facility] Comment on above: Result Comment: Calc ulation based on the Chronic Kidney Disease Epidemiology Collaboration (CKD-EPI) equation refit without adjustment for race Performed By: #### L AB15 ####Senior Telecommunications Technician: ARA WRIGHT ([id number])[facility] ([facility])[address] [place] [address] Glucose [Mass/Vol] 113 mg/dL High 70-100 [facility] Comment on above: Performed By: #### L AB15 ####Senior Telecommunications Technician: ARA WRIGHT ([id number])[facility] ([facility])[address] [place] [address] Potassium [Moles/Vol] 4.2 mmol/L Normal 3.5-5.1 [facility] Comment on above: Performed By: #### L AB15 ####Senior Telecommunications Technician: ARA WRIGHT ([id number])[facility] ([facility])[address] [place] [address] Sodium [Moles/Vol] 130 mmol/L Low 135-145 [facility] Comment on above: Performed By: #### L AB15 ####Senior Telecommunications Technician: ARA WRIGHT ([id number])[facility] ([facility])[address] [place] [address] Urea nitrogen [Mass/Vol] 14 mg/dL Normal 9-20 [facility] Comment on above: Performed By: #### L AB15 ####Senior Telecommunications Technician: ARA WRIGHT ([id number])[facility] ([facility])[address] [place] [address] Behavioral Health Treatment Planon 07-25-2024 Behavioral Health Treatment Plan [facility] CARECOORDon 07-25-2024 CARECOORD Per [facility] pt is a ble to return at [place]. [facility] [place] [facility] [place] IMM letter given to patient. Normal [facility] GROUPNOTEon 07-25-2024 GROUPNOTE [facility] Nursing Noteon 07-25-2024 Nursing Note [facility] Nursing Note [facility] Nursing Note [facility] Progress Noteon 07-25-2024 Progress Note Patient was approach ed about group and denied interest at this time. Continue to engage Patient in groups to address stated treatment goals and objectives. LYUDMILA ClarkS Normal [facility] Progress Note [facility] Progress Note [facility] Progress Note [facility] BASIC METABOLIC PANELon 10-0 Anion gap [Moles/Vol] 9 mmol/L Normal 3-13 [facility] Comment on above: Performed By: #### L AB15 ####Senior Telecommunications Technician: ARA WRIGHT ([id number])[facility] ([facility])[address] [place] [address] Calcium [Mass/Vol] 9.5 mg/dL Normal 8.4-10.4 [facility] Comment on above: Performed By: #### L AB15 ####Senior Telecommunications Technician: ARA WRIGHT ([id number])[facility] ([facility])[address] [place] [address] Chloride [Moles/Vol] 101 mmol/L Normal 98-107 [facility] Comment on above: Performed By: #### L AB15 ####Senior Telecommunications Technician: ARA WRIGHT ([id number])[facility] ([facility])[address] [place] [address] CO2 [Moles/Vol] 18 mmol/L Low 22-30 [facility] Comment on above: Performed By: #### L AB15 ####Senior Telecommunications Technician: ARA WRIGHT ([id number])[facility])[address] [place] [address] Creatinine [Mass/Vol] 0.89 mg/dL Normal 0.66-1.25 [facility] Comment on above: Performed By: #### L AB15 ####Senior Telecommunications Technician: ARA WRIGHT ([id number])[facility])[address] [place] [address] GLOMERULAR FILTRATION RATE ML/MIN/1.73 SQ M.PREDICTED >90.0 Normal >60.0 [facility] Comment on above: Result Comment: Calc ulation based on the Chronic Kidney Disease Epidemiology Collaboration (CKD-EPI) equation refit without adjustment for race Performed By: #### L AB15 ####Senior Telecommunications Technician: ARA WRIGHT ([id number])[facility])[address] [place] [address] Glucose [Mass/Vol] 110 mg/dL High 70-100 [facility] Comment on above: Performed By: #### L AB15 ####Senior Telecommunications Technician: ARA WRIGHT ([id number])[facility] ([facility])[address] [place] [address] Potassium [Moles/Vol] 4.3 mmol/L Normal 3.5-5.1 [facility] Comment on above: Performed By: #### L AB15 ####Senior Telecommunications Technician: ARA WRIGHT ([phone])[facility])[address] [place] [address] Sodium [Moles/Vol] 128 mmol/L Low 135-145 [facility] Comment on above: Performed By: #### L AB15 ####Senior Telecommunications Technician: ARA WRIGHT ([id number])[facility])[address] [place] [address] Urea nitrogen [Mass/Vol] 12 mg/dL Normal 9-20 [facility] Comment on above: Performed By: #### L AB15 ####Senior Telecommunications Technician: ARA WRIGHT ([phone])[facility])[address] [place] [address] CARECOORDon 07-24-2024 [facility] Patient seen and evaluated in coverage. Please see resident's physician note for details [facility] Nursing Noteon 07-24-2024 Nursing Note [facility] Nursing Note Patient resting in b ed after the vistaril. Normal [facility] Nursing Note Patient has anxiety, has hand tremors, Vistaril 50 mg for c/o anxiety, upset with people at times, support given. Normal [facility] Nursing Note Pt compliant with medications, cooperative with care, denies pain, denies harm to self and others, pt appreciative of care. Pt denies AVH. Encouraged ADLs. Normal [facility] Nursing Note [facility] OSMOLALITY, SERUMon 07-24-20 24 OSMOLALITY, SERUM 275 mOsm/kg Low 280-300 [facility] Comment on above: Performed By: #### L [id number] ####Senior Telecommunications Technician: ARA WRIGHT ([id number])[address] OSMOLALITY, URINEon 07-24-20 24 OSMOLALITY, URINE 230 mOsm/kg Low 300-1000 [facility] Comment on above: Performed By: #### L AB420, [id number] ####Senior Telecommunications Technician: ARA WRIGHT ([id number])[facility])[address] [place] [address] Progress Noteon 07-24-2024 Progress Note [facility] Progress Note Normal [facility] Progress Note [facility] SODIUM, URINE, RANDOMon 10-0 Sodium (U) [Moles/Vol] 39 mmol/L Normal 30-90 [facility] Comment on above: Performed By: #### L AB420, [id number] ####Senior Telecommunications Technician: ARA WRIGHT ([id number])[address] CARECOORDon 07-23-2024 [place]OORD Patient seen and exa mined in coverage. Full note by resident physician. Normal [facility] [place] Normal [facility] Consulton 07-23-2024 Consult [facility] ED Nursing Noteon 07-23-2024 ED Nursing Note Report to loida Mchugh RN 07/23/24 0230 [facility] ED Nursing Note Pt report called to todd Mchugh RN 07/23/24 0128 [facility] GROUPNOTEon 07-23-2024 GROUPNOTE Normal [facility] IDNon 07-23-2024 IDN Will admit to consum ing > 50% of supplements. 1 Kris orange bid 10a/HS, 1 Ensure Max @ 2p daily [facility] IDN Normal [facility] IDN Normal [facility] Nursing Noteon 07-23-2024 Nursing Note Normal [facility] Nursing Note Normal [facility] Nursing Note Normal [facility] Nursing Note Normal [facility] Progress Noteon 07-23-2024 Progress Note Normal [facility] Progress Note Normal [facility] Progress Note Normal [facility] [facility] CBC WITH AUTO DIFFERENTIALon 07-22-2024 Basophils (Bld) [#/Vol] 0.0 10*3/uL Normal 0.0-0.2 [facility] Comment on above: Performed By: #### L [id number] ####Senior Telecommunications Technician: ARA WRIGHT ([phone])[facility] [place] [facility] (SWRL[facility])[address] [place] [address] [place] Basophils/100 WBC (Bld) 0.5 % Normal 0.0-2.0 [facility] Comment on above: Performed By: #### L [id number] ####Senior Telecommunications Technician: ARA WRIGHT ([phone])[facility] [place] [facility] ([facility])[address] [place] [address] [place] Eosinophils (Bld) [#/Vol] 0.2 10*3/uL Normal 0.0-0.5 [facility] Comment on above: Performed By: #### L [id number] ####Senior Telecommunications Technician: ARA WRIGHT ([phone])[facility]ITAL[facility] LARADAKOTA RITTMAN (SWRLAB)[address] [place] [address] [place] Eosinophils/100 WBC (Bld) 1.9 % Normal 0.0-6.0 [facility] Comment on above: Performed By: #### L [id number] ####Senior Telecommunications Technician: ARA WRIGHT ([phone])[facility] [place] [facility] ([facility])[address] [place] [address] [place] Erythrocyte distribution width (RBC) [Ratio] 14.1 % Normal 11.5-15.0 [facility] Comment on above: Performed By: #### L [id number] ####Senior Telecommunications Technician: ARA WRIGHT ([phone])[facility] [place] (SWRLAB)[address] [place] [address] Hematocrit (Bld) [Volume fraction] 32.0 % Low 40.0-52.0 [facility] Comment on above: Performed By: #### L [id number] ####Senior Telecommunications Technician: ARA WRIGHT ([phone])[facility] [place] (SWRLAB)[address] [place] [address] Hemoglobin (Bld) [Mass/Vol] 11.0 g/dL Low 13.0-18.0 [facility] Comment on above: Performed By: #### L [id number] ####Senior Telecommunications Technician: ARA WRIGHT ([phone])[facility] [place] (SWRLAB)[address] [place] [address] IMMATURE GRANS % 0.2 % Normal 0.0-2.0 [facility] Comment on above: Performed By: #### L [id number] ####Senior Telecommunications Technician: ARA WRIGHT ([phone])[facility] [place] (SWRLAB)[address] [place] [address] IMMATURE GRANS ABSOLUTE 0.0 10*3/uL Normal <0.1 [facility] Comment on above: Performed By: #### L [id number] ####Senior Telecommunications Technician: ARA WRIGHT ([phone])[facility]ITAL[facility] [place] (SWRLAB)[address] [place] [address] Lymphocytes (Bld) [#/Vol] 1.9 10*3/uL Normal 1.0-4.3 [facility] Comment on above: Performed By: #### L [id number] ####Senior Telecommunications Technician: ARA WRIGHT ([phone])[facility] [place] (SWRLAB)[address] [place] [address] [place] Lymphocytes/100 WBC (Bld) 22.7 % Normal 15.0-45.0 [facility] Comment on above: Performed By: #### L [id number] ####Senior Telecommunications Technician: ARA WRIGHT ([phone])[facility]ITAL[facility] [place] (SWRL[place])[address] [place] [address] MCH (RBC) [Entitic mass] 30.8 pg Normal 26.0-34.0 [facility] Comment on above: Performed By: #### L [id number] ####Senior Telecommunications Technician: ARA WRIGHT ([phone])[facility] [place] (SWRL[place])[address] [place] [address] MCHC 34.4 % Normal 30.5-36.0 [facility] Comment on above: Performed By: #### L [id number] ####Senior Telecommunications Technician: ARA WRIGHT ([phone])[facility]ITAL[facility] [place] (SWRLAB)[address] [place] [address] MCV (RBC) [Entitic vol] 89.6 fL Normal 77.0-99.0 [facility] Comment on above: Performed By: #### L [id number] ####Senior Telecommunications Technician: ARA WRIGHT ([phone])[facility]ITAL[facility] [place] (SWRL[place])[address] [place] [address] Monocytes (Bld) [#/Vol] 0.6 10*3/uL Normal 0.0-0.9 [facility]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 0.465-4.680 [facility] Comment on above: Performed By: #### L AB129, LAB18 ####Senior Telecommunications Technician: ARA WRIGHT ([phone])[facility] ([facility])[address] [place] [address] BASIC METABOLIC PANELon 06-20 Anion gap [Moles/Vol] 8 mmol/L Normal 3-13 [facility] Comment on above: Performed By: #### L AB15 ####Senior Telecommunications Technician: ARA WRIGHT ([phone])[facility] ([facility])[address] [place] [address] Calcium [Mass/Vol] 9.2 mg/dL Normal 8.4-10.4 [facility] Comment on above: Performed By: #### L AB15 ####Senior Telecommunications Technician: ARA WRIGHT ([phone])[facility] ([facility])[address] [place] [address] Chloride [Moles/Vol] 107 mmol/L Normal 98-107 [facility] Comment on above: Performed By: #### L AB15 ####Senior Telecommunications Technician: ARA WRIHGT ([id number])[facility] ([facility])[address] [place] [address] CO2 [Moles/Vol] 21 mmol/L Low 22-30 [facility] Comment on above: Performed By: #### L AB15 ####Senior Telecommunications Technician: ARA WRIGHT ([id number])[facility] ([facility])[address] [place] [address] Creatinine [Mass/Vol] 0.99 mg/dL Normal 0.66-1.25 [facility] Comment on above: Performed By: #### L AB15 ####Senior Telecommunications Technician: ARA WRIGHT ([phone])[facility] ([facility])[address] [place] [address] GLOMERULAR FILTRATION RATE ML/MIN/1.73 SQ M.PREDICTED 85.1 mL/min/1.73m*2 Normal >60.0 [facility] Comment on above: Result Comment: Calc ulation based on the Chronic Kidney Disease Epidemiology Collaboration (CKD-EPI) equation refit without adjustment for race Performed By: #### L AB15 ####Senior Telecommunications Technician: ARA WRIGHT ([phone])[facility] ([facility])[address] [place] [address] [place] Glucose [Mass/Vol] 137 mg/dL High 70-100 [facility] Comment on above: Performed By: #### L AB15 ####Senior Telecommunications Technician: ARA WRIGHT ([phone])[facility] ([facility])[address] [place] [address] Potassium [Moles/Vol] 4.2 mmol/L Normal 3.5-5.1 [facility] Comment on above: Performed By: #### L AB15 ####Senior Telecommunications Technician: ARA WRIGHT ([id number])[facility] ([facility])[address] [place] [address] Sodium [Moles/Vol] 136 mmol/L Normal 135-145 [facility] Comment on above: Performed By: #### L AB15 ####Senior Telecommunications Technician: ARA WRIGHT ([phone])[facility] ([facility])[address] [place] [address] Urea nitrogen [Mass/Vol] 13 mg/dL Normal 9-20 [facility] Comment on above: Performed By: #### L AB15 ####Senior Telecommunications Technician: ARA WRIGHT ([phone])[facility] ([facility])[address] [place] [address] Basic metabolic 1998 panelon 07-10-2024 Anion gap [Moles/Vol] 8 mmol/L 3 - 13 mmol/L [facility] Calcium [Mass/Vol] 9.2 mg/dL 8.4 - 10. 4 mg/dL [facility] Chloride [Moles/Vol] 107 mmol/L 98 - 10 7 mmol/L [facility] CO2 [Moles/Vol] 21 mmol/L Low 22 - 30 mmol/L [facility] Creatinine [Mass/Vol] 0.99 mg/dL 0.66 - 1.25 mg/dL [facility] GFR/1.73 sq M.predicted (S/P/Bld) [Vol rate/Area] 85.1 [facility] Comment on above: Calculation based on the Chronic Kidney Disease Epidemiology Collaboration (CKD-EPI) equation refit without adjustment for race Glucose [Mass/Vol] 137 mg/dL High 70 - 100 mg/dL [facility] Interpretation and review of laboratory results Abnormal [facility] Potassium [Moles/Vol] 4.2 mmol/L 3.5 - 5.1 mmol/L [facility] Sodium [Moles/Vol] 136 mmol/L 135 - 145 mmol/L [facility] Urea nitrogen [Mass/Vol] 13 mg/dL 9 - 20 mg/dL [facility] CARECOORDon 07-10-2024 CARECOORD Normal [facility] CBC (HEMOGRAM)on 07-10-2024 Erythrocyte distribution width (RBC) [Ratio] 14.3 % Normal 11.5-15.0 [facility] Comment on above: Performed By: #### L AB294 ####Senior Telecommunications Technician: ARA WRIGHT ([phone])[facility])[address] [place] [address] Hematocrit (Bld) [Volume fraction] 29.2 % Low 40.0-52.0 [facility] Comment on above: Performed By: #### L AB294 ####Senior Telecommunications Technician: ARA WRIGHT ([id number])[facility])[address] [place] [address] Hemoglobin (Bld) [Mass/Vol] 9.8 g/dL Low 13.0-18.0 [facility] Comment on above: Performed By: #### L AB294 ####Senior Telecommunications Technician: ARA WRIGHT ([phone])[facility])[address] [place] [address] MCH (RBC) [Entitic mass] 30.5 pg Normal 26.0-34.0 [facility] Comment on above: Performed By: #### L AB294 ####Senior Telecommunications Technician: ARA WRIGHT ([phone])[facility])[address] [place] [address] MCHC 33.6 % Normal 30.5-36.0 [facility] Comment on above: Performed By: #### L AB294 ####Senior Telecommunications Technician: ARA WRIGHT ([phone])[facility])[address] [place] [address] MCV (RBC) [Entitic vol] 91.0 fL Normal 77.0-99.0 [facility] Comment on above: Performed By: #### L AB294 ####Senior Telecommunications Technician: ARA WRIGHT ([id number])[facility])[address] [place] [address] Platelet mean volume (Bld) [Entitic vol] 10.4 fL Normal 9.0-12.7 [facility] Comment on above: Performed By: #### L AB294 ####Senior Telecommunications Technician: ARA WRIGHT ([id number])[facility] ([facility])[address] [place] [address] Platelets (Bld) [#/Vol] 150 10*3/uL Normal 140-440 [facility] Comment on above: Performed By: #### L [id number] ####Senior Telecommunications Technician: ARA WRIGHT ([id number])[facility] ([facility])[address] [place] [address] RBC (Bld) [#/Vol] 3.21 10*6/uL Low 4.40-5.90 [facility] Comment on above: Performed By: #### L AB294 ####Senior Telecommunications Technician: ARA WRIGHT ([phone])[facility] ([facility])[address] [place] [address] WBC (Bld) [#/Vol] 5.7 10*3/uL Normal 3.6-10.7 [facility] Comment on above: Performed By: #### L AB294 ####Senior Telecommunications Technician: ARA WRIGHT ([phone])[facility] ([facility])[address] [place] [address] CBC panel Auto (Bld)on 07-10 Erythrocyte distribution width (RBC) [Ratio] 14.3 % 11.5 - 15.0 % [facility] Hematocrit (Bld) [Volume fraction] 29.2 % Low 40.0 - 52.0 % [facility] Hemoglobin (Bld) [Mass/Vol] 9.8 g/dL Low 13.0 - 18.0 g/dL [facility] Interpretation and review of laboratory results Abnormal [facility] MCH (RBC) [Entitic mass] 30.5 pg 26.0 - 34.0 pg [facility] MCHC (RBC) [Mass/Vol] 33.6 % 30.5 - 36.0 % [facility] MCV (RBC) [Entitic vol] 91.0 fL 77.0 - 99.0 fL [facility] Platelet mean volume (Bld) [Entitic vol] 10.4 fL 9.0 - 12.7 fL [facility] Platelets (Bld) [#/Vol] 150 10*3/uL 140 - 440 10*3/uL [facility] RBC (Bld) [#/Vol] 3.21 10*6/uL Low 4.40 - 5.9 0 10*6/uL [facility] WBC (Bld) [#/Vol] 5.7 10*3/uL 3.6 - 10.7 10*3/uL [facility] IDNon 07-10-2024 IDN Normal [facility] IDN Normal [facility] Laboratory - Microbiology an d Antimicrobial susceptibilityOrdered By: Daniel Madison on 07-10-2024 SARS-CoV-2 (COVID-19) Ag IA.rapid Ql (Resp) Negative Negative [facility] Comment on above: A negative result do es not rule out the possibility of SARS-CoV-2 infection. NAAT-based methods should be considered for symptomatic patients presenting greater than seven days after onset of symptoms. Method: Lateral flow immunoassay. Fact sheets for healthcare providers and patients can be found at the following sites: https://www.fda.gov/media/584582/download https://www.fda.gov/media/905998/download Nursing Noteon 07-10-2024 Nursing Note Notified Resp about patient's Tx ordered. Normal [facility] Nursing Note Patient did not want a resp TX, his lungs are clear, no SOB. Pulse ox was 97% on RA. Normal [facility] Nursing Note Normal [facility] Progress Noteon 07-10-2024 Progress Note Nutrition update completed. Chart reviewed. Patient to be monitored and followed by the diet senior environmental technician. LATRICE José Normal [facility] Progress Note Normal [facility] Progress Note Normal [facility] Progress Note Normal [facility] SARS-COV-2 ANTIGENon 024 SARS-COV-2 ANTIGEN Normal [facility] Comment on above: Performed By: #### L [id number] ####Senior Telecommunications Technician: ARA WRIGHT ([phone])[address] SARS-CoV-2 (COVID-19) Ag IA. rapid Ql (Resp)Ordered By: Daniel Madison on 07-10-2024 Interpretation and review of laboratory results Normal [facility] BASIC METABOLIC PANELon 06-20 Anion gap [Moles/Vol] 8 mmol/L Normal 3-13 [facility] Comment on above: Performed By: #### L AB15 ####Senior Telecommunications Technician: ARA WRIGHT ([phone])[facility])[address] [place] [address] Calcium [Mass/Vol] 9.0 mg/dL Normal 8.4-10.4 [facility] Comment on above: Performed By: #### L AB15 ####Senior Telecommunications Technician: ARA WRIGHT ([phone])[facility])[address] [place] [address] Chloride [Moles/Vol] 109 mmol/L High 98-107 [facility] Comment on above: Performed By: #### L AB15 ####Senior Telecommunications Technician: ARA WRIGHT ([id number])[facility] ([facility])[address] [place] [address] CO2 [Moles/Vol] 18 mmol/L Low 22-30 [facility] Comment on above: Performed By: #### L AB15 ####Senior Telecommunications Technician: ARA WRIGHT ([phone])[facility])[address] [place] [address] Creatinine [Mass/Vol] 0.93 mg/dL Normal 0.66-1.25 [facility] Comment on above: Performed By: #### L AB15 ####Senior Telecommunications Technician: ARA WRIGHT ([phone])[facility])[address] [place] [address] GLOMERULAR FILTRATION RATE ML/MIN/1.73 SQ M.PREDICTED >90.0 Normal >60.0 [facility] Comment on above: Result Comment: Calc ulation based on the Chronic Kidney Disease Epidemiology Collaboration (CKD-EPI) equation refit without adjustment for race Performed By: #### L AB15 ####Senior Telecommunications Technician: ARA WRIGHT ([id number])[facility] ([facility])[address] [place] [address] Glucose [Mass/Vol] 125 mg/dL High 70-100 [facility] Comment on above: Performed By: #### L AB15 ####Senior Telecommunications Technician: ARA WRIGHT ([id number])[facility] ([facility])[address] [place] [address] Potassium [Moles/Vol] 3.9 mmol/L Normal 3.5-5.1 [facility] Comment on above: Performed By: #### L AB15 ####Senior Telecommunications Technician: ARA WRIGHT ([phone])[facility] ([facility])[address] [place] [address] Sodium [Moles/Vol] 135 mmol/L Normal 135-145 [facility] Comment on above: Performed By: #### L AB15 ####Senior Telecommunications Technician: ARA WRIGHT ([phone])[facility] ([facility])[address] [place] [address] Urea nitrogen [Mass/Vol] 8 mg/dL Low 9-20 [facility] Comment on above: Performed By: #### L AB15 ####Senior Telecommunications Technician: ARA WRIGHT ([phone])[facility])[address] [place] [address] Basic metabolic 1998 panelon 07-09-2024 Anion gap [Moles/Vol] 8 mmol/L 3 - 13 mmol/L [facility] Calcium [Mass/Vol] 9.0 mg/dL 8.4 - 10. 4 mg/dL [facility] Chloride [Moles/Vol] 109 mmol/L High 98 - 10 7 mmol/L [facility] CO2 [Moles/Vol] 18 mmol/L Low 22 - 30 mmol/L [facility] Creatinine [Mass/Vol] 0.93 mg/dL 0.66 - 1.25 mg/dL [facility] GFR/1.73 sq M.predicted (S/P/Bld) [Vol rate/Area] - PINF [facility] Comment on above: Calculation based on the Chronic Kidney Disease Epidemiology Collaboration (CKD-EPI) equation refit without adjustment for race Glucose [Mass/Vol] 125 mg/dL High 70 - 100 mg/dL [facility] Interpretation and review of laboratory results Abnormal [facility] Potassium [Moles/Vol] 3.9 mmol/L 3.5 - 5.1 mmol/L [facility] Sodium [Moles/Vol] 135 mmol/L 135 - 145 mmol/L [facility] Urea nitrogen [Mass/Vol] 8 mg/dL Low 9 - 20 mg/dL [facility] CBC (HEMOGRAM)on 07-09-2024 Erythrocyte distribution width (RBC) [Ratio] 13.9 % Normal 11.5-15.0 [facility] Comment on above: Performed By: #### L [id number] ####Senior Telecommunications Technician: ARA WRIGHT ([phone])[address] Hematocrit (Bld) [Volume fraction] 28.3 % Low 40.0-52.0 [facility] Comment on above: Performed By: #### L [id number] ####Senior Telecommunications Technician: ARA WRIGHT ([id number])[address] Hemoglobin (Bld) [Mass/Vol] 9.8 g/dL Low 13.0-18.0 [facility] Comment on above: Performed By: #### L [id number] ####Senior Telecommunications Technician: ARA WRIGHT ([phone])[facility])[address] [place] [address] MCH (RBC) [Entitic mass] 30.8 pg Normal 26.0-34.0 [facility] Comment on above: Performed By: #### L [id number] ####Senior Telecommunications Technician: ARA WRIGHT ([id number])[address] MCHC 34.6 % Normal 30.5-36.0 [facility] Comment on above: Performed By: #### L [id number] ####Senior Telecommunications Technician: ARA WRIGHT ([phone])[facility] ([facility])[address] [place] [address] MCV (RBC) [Entitic vol] 89.0 fL Normal 77.0-99.0 [facility] Comment on above: Performed By: #### L [id number] ####Senior Telecommunications Technician: ARA WRIGHT ([id number])[facility])[address] [place] [address] Platelet mean volume (Bld) [Entitic vol] 9.7 fL Normal 9.0-12.7 [facility] Comment on above: Performed By: #### L [id number] ####Senior Telecommunications Technician: ARA WRIGHT ([id number])[facility])[address] [place] [address] Platelets (Bld) [#/Vol] 164 10*3/uL Normal 140-440 [facility] Comment on above: Performed By: #### L [id number] ####Senior Telecommunications Technician: ARA WRIGHT ([phone])[facility])[address] [place] [address] RBC (Bld) [#/Vol] 3.18 10*6/uL Low 4.40-5.90 [facility] Comment on above: Performed By: #### L [id number] ####Senior Telecommunications Technician: ARA WRIGHT ([id number])[facility])[address] [place] [address] WBC (Bld) [#/Vol] 6.3 10*3/uL Normal 3.6-10.7 [facility] Comment on above: Performed By: #### L [id number] ####Senior Telecommunications Technician: ARA WRIGHT ([phone])[facility])[address] [place] [address] CBC panel Auto (Bld)on 07-09 Erythrocyte distribution width (RBC) [Ratio] 13.9 % 11.5 - 15.0 % [facility] Hematocrit (Bld) [Volume fraction] 28.3 % Low 40.0 - 52.0 % [facility] Hemoglobin (Bld) [Mass/Vol] 9.8 g/dL Low 13.0 - 18.0 g/dL [facility] Interpretation and review of laboratory results Abnormal [facility] MCH (RBC) [Entitic mass] 30.8 pg 26.0 - 34.0 pg [facility] MCHC (RBC) [Mass/Vol] 34.6 % 30.5 - 36.0 % [facility] MCV (RBC) [Entitic vol] 89.0 fL 77.0 - 99.0 fL [facility] Platelet mean volume (Bld) [Entitic vol] 9.7 fL 9.0 - 12.7 fL [facility] Platelets (Bld) [#/Vol] 164 10*3/uL 140 - 440 10*3/uL [facility] RBC (Bld) [#/Vol] 3.18 10*6/uL Low 4.40 - 5.9 0 10*6/uL [facility] WBC (Bld) [#/Vol] 6.3 10*3/uL 3.6 - 10.7 10*3/uL [facility] IDNon 07-09-2024 IDN Normal [facility] Nursing Noteon 07-09-2024 Nursing Note Normal [facility] Progress Noteon 07-09-2024 Progress Note Normal [facility] BASIC METABOLIC PANELon 06-20 Anion gap [Moles/Vol] 5 mmol/L Normal 3-13 [facility] Comment on above: Performed By: #### L AB15 ####Senior Telecommunications Technician: ARA WRIGHT ([phone])[address] Calcium [Mass/Vol] 8.9 mg/dL Normal 8.4-10.4 [facility] Comment on above: Performed By: #### L AB15 ####Senior Telecommunications Technician: ARA WRIGHT ([phone])[facility] ([facility])[address] [place] [address] Chloride [Moles/Vol] 108 mmol/L High 98-107 [facility] Comment on above: Performed By: #### L AB15 ####Senior Telecommunications Technician: ARA WRIGHT ([phone])[facility] ([facility])[address] [place] [address] CO2 [Moles/Vol] 22 mmol/L Normal 22-30 [facility] Comment on above: Performed By: #### L AB15 ####Senior Telecommunications Technician: ARA WRIGHT ([phone])[facility] ([facility])[address] [place] [address] Creatinine [Mass/Vol] 0.90 mg/dL Normal 0.66-1.25 [facility] Comment on above: Performed By: #### L AB15 ####Senior Telecommunications Technician: ARA WRIGHT ([phone])[facility] ([facility])[address] [place] [address] GLOMERULAR FILTRATION RATE ML/MIN/1.73 SQ M.PREDICTED >90.0 Normal >60.0 [facility] Comment on above: Result Comment: Calc ulation based on the Chronic Kidney Disease Epidemiology Collaboration (CKD-EPI) equation refit without adjustment for race Performed By: #### L AB15 ####Senior Telecommunications Technician: ARA WRIGHT ([phone])[facility] ([facility])[address] [place] [address] [place] Glucose [Mass/Vol] 97 mg/dL Normal 70-100 [facility] Comment on above: Performed By: #### L AB15 ####Senior Telecommunications Technician: ARA WRIGHT ([phone])[facility] ([facility])[address] [place] [address] [place] Potassium [Moles/Vol] 4.0 mmol/L Normal 3.5-5.1 [facility] Comment on above: Performed By: #### L AB15 ####Senior Telecommunications Technician: ARA WRIGHT ([phone])[facility] ([facility])[address] [place] [address] [place] Sodium [Moles/Vol] 135 mmol/L Normal 135-145 [facility] Comment on above: Performed By: #### L AB15 ####Senior Telecommunications Technician: ARA WRIGHT ([phone])[facility] ([facility])[address] [place] [address] [place] Urea nitrogen [Mass/Vol] 8 mg/dL Low 9-20 [facility] Comment on above: Performed By: #### L AB15 ####Senior Telecommunications Technician: ARA WRIGHT ([phone])[facility])[address] [place] [address] Basic metabolic 1998 panelon 07-08-2024 Anion gap [Moles/Vol] 5 mmol/L 3 - 13 mmol/L [facility] Calcium [Mass/Vol] 8.9 mg/dL 8.4 - 10. 4 mg/dL [facility] Chloride [Moles/Vol] 108 mmol/L High 98 - 10 7 mmol/L [facility] CO2 [Moles/Vol] 22 mmol/L 22 - 30 mmol/L [facility] Creatinine [Mass/Vol] 0.90 mg/dL 0.66 - 1.25 mg/dL [facility] GFR/1.73 sq M.predicted (S/P/Bld) [Vol rate/Area] - PINF [facility] Comment on above: Calculation based on the Chronic Kidney Disease Epidemiology Collaboration (CKD-EPI) equation refit without adjustment for race Glucose [Mass/Vol] 97 mg/dL 70 - 100 mg/dL [facility] Interpretation and review of laboratory results Abnormal [facility] Potassium [Moles/Vol] 4.0 mmol/L 3.5 - 5.1 mmol/L [facility] Sodium [Moles/Vol] 135 mmol/L 135 - 145 mmol/L [facility] Urea nitrogen [Mass/Vol] 8 mg/dL Low 9 - 20 mg/dL [facility] CARECOORDon 07-08-2024 CARECOORD Normal [facility] CARECOORD Normal [facility] CBC (HEMOGRAM)on 07-08-2024 Erythrocyte distribution width (RBC) [Ratio] 13.8 % Normal 11.5-15.0 [facility] Comment on above: Performed By: #### L [id number] ####Senior Telecommunications Technician: ARA WRIGHT ([phone])[facility] ([facility])[address] [place] [address] Hematocrit (Bld) [Volume fraction] 29.1 % Low 40.0-52.0 [facility] Comment on above: Performed By: #### L AB294 ####Senior Telecommunications Technician: ARA WRIGHT ([phone])[facility] ([facility])[address] [place] [address] Hemoglobin (Bld) [Mass/Vol] 10.0 g/dL Low 13.0-18.0 [facility] Comment on above: Performed By: #### L AB294 ####Senior Telecommunications Technician: ARA WRIGHT ([phone])[facility])[address] [place] [address] MCH (RBC) [Entitic mass] 30.8 pg Normal 26.0-34.0 [facility] Comment on above: Performed By: #### L AB294 ####Senior Telecommunications Technician: ARA WRIGHT ([phone])[facility])[address] [place] [address] MCHC 34.4 % Normal 30.5-36.0 [facility] Comment on above: Performed By: #### L AB294 ####Senior Telecommunications Technician: ARA WRIGHT ([phone])[facility] ([facility])[address] [place] [address] MCV (RBC) [Entitic vol] 89.5 fL Normal 77.0-99.0 [facility] Comment on above: Performed By: #### L AB294 ####Senior Telecommunications Technician: ARA WRIGHT ([phone])[facility] ([facility])[address] [place] [address] Platelet mean volume (Bld) [Entitic vol] 9.5 fL Normal 9.0-12.7 [facility] Comment on above: Performed By: #### L AB294 ####Senior Telecommunications Technician: ARA WRIGHT ([phone])[facility] ([facility])[address] [place] [address] Platelets (Bld) [#/Vol] 172 10*3/uL Normal 140-440 [facility] Comment on above: Performed By: #### L [id number] ####Senior Telecommunications Technician: ARA WRIGHT ([phone])[facility])[address] [place] [address] RBC (Bld) [#/Vol] 3.25 10*6/uL Low 4.40-5.90 [facility] Comment on above: Performed By: #### L AB294 ####Senior Telecommunications Technician: ARA WRIGHT ([phone])[facility] ([facility])[address] [place] [address] WBC (Bld) [#/Vol] 5.4 10*3/uL Normal 3.6-10.7 [facility] Comment on above: Performed By: #### L AB294 ####Senior Telecommunications Technician: ARA WRIGHT ([phone])[facility] ([facility])[address] [place] [address] CBC panel Auto (Bld)on 07-08 Erythrocyte distribution width (RBC) [Ratio] 13.8 % 11.5 - 15.0 % [facility] Hematocrit (Bld) [Volume fraction] 29.1 % Low 40.0 - 52.0 % [facility] Hemoglobin (Bld) [Mass/Vol] 10.0 g/dL Low 13.0 - 18.0 g/dL [facility] Interpretation and review of laboratory results Abnormal [facility] MCH (RBC) [Entitic mass] 30.8 pg 26.0 - 34.0 pg [facility] MCHC (RBC) [Mass/Vol] 34.4 % 30.5 - 36.0 % [facility] MCV (RBC) [Entitic vol] 89.5 fL 77.0 - 99.0 fL [facility] Platelet mean volume (Bld) [Entitic vol] 9.5 fL 9.0 - 12.7 fL [facility] Platelets (Bld) [#/Vol] 172 10*3/uL 140 - 440 10*3/uL [facility] RBC (Bld) [#/Vol] 3.25 10*6/uL Low 4.40 - 5.9 0 10*6/uL [facility] WBC (Bld) [#/Vol] 5.4 10*3/uL 3.6 - 10.7 10*3/uL [facility] IDNon 07-08-2024 IDN Normal [facility] IDN Normal [facility] IDN Normal [facility] Laboratory - Chemistry and C hemistry - challengeon 07-08-2024 Fat Ql (Stl) Normal Normal [facility] Comment on above: INTERPRETIVE INFORMA TION: Fecal Fat Qualitative Neutral fats include the monoglycerides, diglycerides, and triglycerides while split fats are the free fatty acids that are liberated from them. Impaired synthesis or secretion of pancreatic enzymes or bile may cause an increase in neutral fats while an increase in split fats suggests impaired absorption of nutrients. Performed By: [facility] [address] [place] [address] Maintenance And Engineering Manager: Ana Heredia MD, PhD CLIA Number: [id number] Fat.neutral Ql (Stl) Normal Normal [facility] No Panel Informationon 07-08 [facility] Progress Noteon 07-08-2024 Progress Note Normal [facility] Progress Note Normal [facility] Progress Note Normal [facility] Progress Note Normal [facility] 36on 07-07-2024 36 Pt is currently admi tted. Will contact pt when he get discharge. Thank you Normal [facility] 36 GI Staff to schedule d hospital follow up and colonoscopy once discharged. Normal [facility] BASIC METABOLIC PANELon 06-19 Anion gap [Moles/Vol] 5 mmol/L Normal 3-13 [facility] Comment on above: Performed By: #### L AB15 ####Senior Telecommunications Technician: ARA WRIGHT ([phone])[facility] ([facility])[address] [place] [address] Calcium [Mass/Vol] 8.5 mg/dL Normal 8.4-10.4 [facility] Comment on above: Performed By: #### L AB15 ####Senior Telecommunications Technician: ARA WRIGHT ([phone])[facility] ([facility])[address] [place] [address] [place] Chloride [Moles/Vol] 111 mmol/L High 98-107 [facility] Comment on above: Performed By: #### L AB15 ####Senior Telecommunications Technician: ARA WRIGHT ([phone])[facility] ([facility])[address] [place] [address] [place] CO2 [Moles/Vol] 17 mmol/L Low 22-30 [facility] Comment on above: Performed By: #### L AB15 ####Senior Telecommunications Technician: ARA WRIGHT ([phone])[facility])[address] [place] [address] Creatinine [Mass/Vol] 0.86 mg/dL Normal 0.66-1.25 [facility] Comment on above: Performed By: #### L AB15 ####Senior Telecommunications Technician: ARA WRIGHT ([phone])[facility])[address] [place] [address] GLOMERULAR FILTRATION RATE ML/MIN/1.73 SQ M.PREDICTED >90.0 Normal >60.0 [facility] Comment on above: Result Comment: Calc ulation based on the Chronic Kidney Disease Epidemiology Collaboration (CKD-EPI) equation refit without adjustment for race Performed By: #### L AB15 ####Senior Telecommunications Technician: ARA WRIGHT ([phone])[facility])[address] [place] [address] Glucose [Mass/Vol] 131 mg/dL High 70-100 [facility] Comment on above: Performed By: #### L AB15 ####Senior Telecommunications Technician: ARA WRIGHT ([phone])[facility])[address] [place] [address] Potassium [Moles/Vol] 3.9 mmol/L Normal 3.5-5.1 [facility] Comment on above: Performed By: #### L AB15 ####Senior Telecommunications Technician: ARA WRIGHT ([phone])[facility])[address] [place] [address] [place] Sodium [Moles/Vol] 134 mmol/L Low 135-145 [facility] Comment on above: Performed By: #### L AB15 ####Senior Telecommunications Technician: ARA WRIGHT ([phone])[facility])[address] [place] [address] [place] Urea nitrogen [Mass/Vol] 9 mg/dL Normal 9-20 [facility] Comment on above: Performed By: #### L AB15 ####Senior Telecommunications Technician: ARA WRIGHT ([phone])[facility] ([facility])[address] [place] [address] Basic metabolic 1998 panelon 07-07-2024 Anion gap [Moles/Vol] 5 mmol/L 3 - 13 mmol/L [facility] Calcium [Mass/Vol] 8.5 mg/dL 8.4 - 10. 4 mg/dL [facility] Chloride [Moles/Vol] 111 mmol/L High 98 - 10 7 mmol/L [facility] CO2 [Moles/Vol] 17 mmol/L Low 22 - 30 mmol/L [facility] Creatinine [Mass/Vol] 0.86 mg/dL 0.66 - 1.25 mg/dL [facility] GFR/1.73 sq M.predicted (S/P/Bld) [Vol rate/Area] - PINF [facility] Comment on above: Calculation based on the Chronic Kidney Disease Epidemiology Collaboration (CKD-EPI) equation refit without adjustment for race Glucose [Mass/Vol] 131 mg/dL High 70 - 100 mg/dL [facility] Interpretation and review of laboratory results Abnormal [facility] Potassium [Moles/Vol] 3.9 mmol/L 3.5 - 5.1 mmol/L [facility] Sodium [Moles/Vol] 134 mmol/L Low 135 - 145 mmol/L [facility] Urea nitrogen [Mass/Vol] 9 mg/dL 9 - 20 mg/dL [facility] CARECOORDon 07-07-2024 CARECOORD Normal [facility] CBC (HEMOGRAM)on 07-07-2024 Erythrocyte distribution width (RBC) [Ratio] 13.6 % Normal 11.5-15.0 [facility] Comment on above: Performed By: #### L [id number] ####Senior Telecommunications Technician: ARA WRIGHT ([phone])[facility] ([facility])[address] [place] [address] Hematocrit (Bld) [Volume fraction] 27.4 % Low 40.0-52.0 [facility] Comment on above: Performed By: #### L AB294 ####Senior Telecommunications Technician: ARA WRIGHT ([phone])[facility] ([facility])[address] [place] [address] Hemoglobin (Bld) [Mass/Vol] 9.5 g/dL Low 13.0-18.0 [facility] Comment on above: Performed By: #### L AB294 ####Senior Telecommunications Technician: ARA WRIGHT ([id number])[facility])[address] [place] [address] MCH (RBC) [Entitic mass] 30.7 pg Normal 26.0-34.0 [facility] Comment on above: Performed By: #### L AB294 ####Senior Telecommunications Technician: ARA WRIGHT ([phone])[facility])[address] [place] [address] MCHC 34.7 % Normal 30.5-36.0 [facility] Comment on above: Performed By: #### L AB294 ####Senior Telecommunications Technician: ARA WRIGHT ([phone])[facility] ([facility])[address] [place] [address] MCV (RBC) [Entitic vol] 88.7 fL Normal 77.0-99.0 [facility] Comment on above: Performed By: #### L AB294 ####Senior Telecommunications Technician: ARA WRIGHT ([phone])[facility])[address] [place] [address] Platelet mean volume (Bld) [Entitic vol] 9.7 fL Normal 9.0-12.7 [facility] Comment on above: Performed By: #### L AB294 ####Senior Telecommunications Technician: ARA WRIGHT ([phone])[facility] ([facility])[address] [place] [address] Platelets (Bld) [#/Vol] 176 10*3/uL Normal 140-440 [facility] Comment on above: Performed By: #### L AB294 ####Senior Telecommunications Technician: ARA WRIGHT ([phone])[facility])[address] [place] [address] RBC (Bld) [#/Vol] 3.09 10*6/uL Low 4.40-5.90 [facility] Comment on above: Performed By: #### L AB294 ####Senior Telecommunications Technician: ARA WRIGHT ([phone])[facility] ([facility])[address] [place] [address] WBC (Bld) [#/Vol] 5.3 10*3/uL Normal 3.6-10.7 [facility] Comment on above: Performed By: #### L AB294 ####Senior Telecommunications Technician: ARA WRIGHT ([id number])[facility] ([facility])[address] [place] [address] CBC panel Auto (Bld)on 07-07 Erythrocyte distribution width (RBC) [Ratio] 13.6 % 11.5 - 15.0 % [facility] Hematocrit (Bld) [Volume fraction] 27.4 % Low 40.0 - 52.0 % [facility] Hemoglobin (Bld) [Mass/Vol] 9.5 g/dL Low 13.0 - 18.0 g/dL [facility] Interpretation and review of laboratory results Abnormal [facility] MCH (RBC) [Entitic mass] 30.7 pg 26.0 - 34.0 pg [facility] MCHC (RBC) [Mass/Vol] 34.7 % 30.5 - 36.0 % [facility] MCV (RBC) [Entitic vol] 88.7 fL 77.0 - 99.0 fL [facility] Platelet mean volume (Bld) [Entitic vol] 9.7 fL 9.0 - 12.7 fL [facility] Platelets (Bld) [#/Vol] 176 10*3/uL 140 - 440 10*3/uL [facility] RBC (Bld) [#/Vol] 3.09 10*6/uL Low 4.40 - 5.9 0 10*6/uL [facility] WBC (Bld) [#/Vol] 5.3 10*3/uL 3.6 - 10.7 10*3/uL [facility] IDNon 07-07-2024 IDN Normal [facility] IDN Normal [facility] IDN Normal [facility] Nursing Noteon 07-07-2024 Nursing Note This nurse entered r oom, patient was bleeding from his Right arm 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 Notified Physician. Normal [facility] Progress Noteon 07-07-2024 Progress Note Normal [facility] Progress Note Normal [facility] Progress Note Normal [facility] Progress Note Normal [facility] Progress Note Normal [facility] 36on 07-06-2024 36 Patient evaluated inpatient for diarrhea and abdominal pain. Needs OP colonoscopy. OV and please use inpatient colon spot for colonoscopy. Ok for LEENA. Normal [facility] BASIC METABOLIC PANELon 06-19 Anion gap [Moles/Vol] 10 mmol/L Normal 3-13 [facility] Comment on above: Performed By: #### L AB103, LAB15 ####Senior Telecommunications Technician: ARA WRIGHT ([phone])[facility])[address] [place] [address] Calcium [Mass/Vol] 8.9 mg/dL Normal 8.4-10.4 [facility] Comment on above: Performed By: #### L AB103, LAB15 ####Senior Telecommunications Technician: ARA WRIGHT ([phone])[facility])[address] [place] [address] Chloride [Moles/Vol] 108 mmol/L High 98-107 [facility] Comment on above: Performed By: #### L AB103, LAB15 ####Senior Telecommunications Technician: ARA WRIGHT ([phone])[facility])[address] [place] [address] CO2 [Moles/Vol] 16 mmol/L Low 22-30 [facility] Comment on above: Performed By: #### L AB103, LAB15 ####Senior Telecommunications Technician: ARA WRIGHT ([phone])[facility])[address] [place] [address] Creatinine [Mass/Vol] 0.93 mg/dL Normal 0.66-1.25 [facility] Comment on above: Performed By: #### L AB103, LAB15 ####Senior Telecommunications Technician: ARA [phone])[facility])[address] [place] [address] GLOMERULAR FILTRATION RATE ML/MIN/1.73 SQ M.PREDICTED >90.0 Normal >60.0 [facility] Comment on above: Result Comment: Calc ulation based on the Chronic Kidney Disease Epidemiology Collaboration (CKD-EPI) equation refit without adjustment for race Performed By: #### L AB103, LAB15 ####Senior Telecommunications Technician: ARA WRIGHT ([phone])[facility] ([facility])[address] [place] [address] Glucose [Mass/Vol] 184 mg/dL High 70-100 [facility] Comment on above: Performed By: #### L AB103, LAB15 ####Senior Telecommunications Technician: ARA WRIGHT ([phone])[facility])[address] [place] [address] Potassium [Moles/Vol] 3.4 mmol/L Low 3.5-5.1 [facility] Comment on above: Performed By: #### L AB103, LAB15 ####Senior Telecommunications Technician: ARA WRIGHT ([phone])[facility] ([facility])[address] [place] [address] Sodium [Moles/Vol] 135 mmol/L Normal 135-145 [facility] Comment on above: Performed By: #### L AB103, LAB15 ####Senior Telecommunications Technician: ARA WRIGHT ([phone])[facility])[address] [place] [address] Urea nitrogen [Mass/Vol] 13 mg/dL Normal 9-20 [facility] Comment on above: Performed By: #### L AB103, LAB15 ####Senior Telecommunications Technician: ARA WRIGHT ([phone])[facility])[address] [place] [address] Basic metabolic 1998 panelon 07-06-2024 Anion gap [Moles/Vol] 10 mmol/L 3 - 13 mmol/L [facility] Calcium [Mass/Vol] 8.9 mg/dL 8.4 - 10. 4 mg/dL [facility] Chloride [Moles/Vol] 108 mmol/L High 98 - 10 7 mmol/L [facility] CO2 [Moles/Vol] 16 mmol/L Low 22 - 30 mmol/L [facility] Creatinine [Mass/Vol] 0.93 mg/dL 0.66 - 1.25 mg/dL [facility] GFR/1.73 sq M.predicted (S/P/Bld) [Vol rate/Area] - PINF [facility] Comment on above: Calculation based on the Chronic Kidney Disease Epidemiology Collaboration (CKD-EPI) equation refit without adjustment for race Glucose [Mass/Vol] 184 mg/dL High 70 - 100 mg/dL [facility] Interpretation and review of laboratory results Abnormal [facility] Potassium [Moles/Vol] 3.4 mmol/L Low 3.5 - 5.1 mmol/L [facility] Sodium [Moles/Vol] 135 mmol/L 135 - 145 mmol/L [facility] Urea nitrogen [Mass/Vol] 13 mg/dL 9 - 20 mg/dL [facility] CARECOORDon 07-06-2024 CARECOORD Normal [facility] CBC (HEMOGRAM)on 07-06-2024 Erythrocyte distribution width (RBC) [Ratio] 13.3 % Normal 11.5-15.0 [facility] Comment on above: Performed By: #### L AB294 ####Senior Telecommunications Technician: ARA WRIGHT ([phone])[address] Hematocrit (Bld) [Volume fraction] 33.1 % Low 40.0-52.0 [facility] Comment on above: Performed By: #### L AB294 ####Senior Telecommunications Technician: ARA WRIGHT ([phone])[facility] ([facility])[address] [place] [address] [place] Hemoglobin (Bld) [Mass/Vol] 11.1 g/dL Low 13.0-18.0 [facility] Comment on above: Performed By: #### L AB294 ####Senior Telecommunications Technician: ARA WRIGHT ([phone])[facility] ([facility])[address] [place] [address] MCH (RBC) [Entitic mass] 30.2 pg Normal 26.0-34.0 [facility] Comment on above: Performed By: #### L AB294 ####Senior Telecommunications Technician: ARA WRIGHT ([phone])[facility])[address] [place] [address] MCHC 33.5 % Normal 30.5-36.0 [facility] Comment on above: Performed By: #### L AB294 ####Senior Telecommunications Technician: ARA WRIGHT ([phone])[facility])[address] [place] [address] MCV (RBC) [Entitic vol] 90.2 fL Normal 77.0-99.0 [facility] Comment on above: Performed By: #### L AB294 ####Senior Telecommunications Technician: ARA WRIGHT ([phone])[facility])[address] [place] [address] Platelet mean volume (Bld) [Entitic vol] 9.2 fL Normal 9.0-12.7 [facility] Comment on above: Performed By: #### L AB294 ####Senior Telecommunications Technician: ARA WRIGHT ([phone])[facility])[address] [place] [address] Platelets (Bld) [#/Vol] 192 10*3/uL Normal 140-440 [facility] Comment on above: Performed By: #### L AB294 ####Senior Telecommunications Technician: ARA WRIGHT ([phone])[facility])[address] [place] [address] RBC (Bld) [#/Vol] 3.67 10*6/uL Low 4.40-5.90 [facility] Comment on above: Performed By: #### L AB294 ####Senior Telecommunications Technician: ARA WRIGHT ([phone])[facility])[address] [place] [address] WBC (Bld) [#/Vol] 4.5 10*3/uL Normal 3.6-10.7 [facility] Comment on above: Performed By: #### L [id number] ####Senior Telecommunications Technician: ARA WRIGHT ([phone])[facility] ([facility])[address] [place] [address] CBC panel Auto (Bld)on 07-06 Erythrocyte distribution width (RBC) [Ratio] 13.3 % 11.5 - 15.0 % [facility] Hematocrit (Bld) [Volume fraction] 33.1 % Low 40.0 - 52.0 % [facility] Hemoglobin (Bld) [Mass/Vol] 11.1 g/dL Low 13.0 - 18.0 g/dL [facility] Interpretation and review of laboratory results Abnormal [facility] MCH (RBC) [Entitic mass] 30.2 pg 26.0 - 34.0 pg [facility] MCHC (RBC) [Mass/Vol] 33.5 % 30.5 - 36.0 % [facility] MCV (RBC) [Entitic vol] 90.2 fL 77.0 - 99.0 fL [facility] Platelet mean volume (Bld) [Entitic vol] 9.2 fL 9.0 - 12.7 fL [facility] Platelets (Bld) [#/Vol] 192 10*3/uL 140 - 440 10*3/uL [facility] RBC (Bld) [#/Vol] 3.67 10*6/uL Low 4.40 - 5.9 0 10*6/uL [facility] WBC (Bld) [#/Vol] 4.5 10*3/uL 3.6 - 10.7 10*3/uL [facility] IDNon 07-06-2024 IDN Normal [facility] Laboratory - Chemistry and C hemistry - challengeon 07-06-2024 Magnesium [Mass/Vol] 1.4 mg/dL Low 1.6 - 2 .3 mg/dL [facility] [facility] MAGNESIUMon 07-06-2024 Magnesium [Mass/Vol] 1.4 mg/dL Low 1.6-2.3 [facility] Comment on above: Performed By: #### L [id number], LAB15 ####Senior Telecommunications Technician: ARA WRIGHT ([phone])[facility] ([facility])[address] [place] [address] Magnesium [Mass/Vol]on 07-06 Interpretation and review of laboratory results Abnormal [facility] Progress Noteon 07-06-2024 Progress Note Normal [facility] Progress Note Normal [facility] Progress Note Normal [facility] Progress Note Normal [facility] BASIC METABOLIC PANELon 06-19 Anion gap [Moles/Vol] 8 mmol/L Normal 3-13 [facility] Comment on above: Performed By: #### L AB99, LAB15 ####Senior Telecommunications Technician: ARA WRIGHT ([phone])[facility] ([facility])[address] [place] [address] Calcium [Mass/Vol] 8.6 mg/dL Normal 8.4-10.4 [facility] Comment on above: Performed By: #### L AB99, LAB15 ####Senior Telecommunications Technician: ARA WRIGHT ([phone])[facility] ([facility])[address] [place] [address] [place] Chloride [Moles/Vol] 100 mmol/L Normal 98-107 [facility] Comment on above: Performed By: #### L AB99, LAB15 ####Senior Telecommunications Technician: ARA WRIGHT ([phone])[facility] ([facility])[address] [place] [address] [place] CO2 [Moles/Vol] 18 mmol/L Low 22-30 [facility] Comment on above: Performed By: #### L AB99, LAB15 ####Senior Telecommunications Technician: ARA WRIGHT ([phone])[facility] ([facility])[address] [place] [address] [place] Creatinine [Mass/Vol] 1.13 mg/dL Normal 0.66-1.25 [facility] Comment on above: Performed By: #### L AB99, LAB15 ####Senior Telecommunications Technician: ARA WRIGHT ([phone])[facility])[address] [place] [address] [place] GLOMERULAR FILTRATION RATE ML/MIN/1.73 SQ M.PREDICTED 72.6 mL/min/1.73m*2 Normal >60.0 [facility] Comment on above: Result Comment: Calc ulation based on the Chronic Kidney Disease Epidemiology Collaboration (CKD-EPI) equation refit without adjustment for race Performed By: #### L AB99, LAB15 ####Senior Telecommunications Technician: ARA WRIGHT ([phone])[facility] ([facility])[address] [place] [address] Glucose [Mass/Vol] 125 mg/dL High 70-100 [facility] Comment on above: Performed By: #### L AB99, LAB15 ####Senior Telecommunications Technician: ARA WRIGHT ([phone])[facility] ([facility])[address] [place] [address] Potassium [Moles/Vol] 3.1 mmol/L Low 3.5-5.1 [facility] Comment on above: Performed By: #### L AB99, LAB15 ####Senior Telecommunications Technician: ARA WRIGHT ([phone])[facility] ([facility])[address] [place] [address] Sodium [Moles/Vol] 127 mmol/L Low 135-145 [facility] Comment on above: Performed By: #### L AB99, LAB15 ####Senior Telecommunications Technician: ARA WRIGHT ([phone])[facility])[address] [place] [address] Urea nitrogen [Mass/Vol] 17 mg/dL Normal 9-20 [facility] Comment on above: Performed By: #### L AB99, LAB15 ####Senior Telecommunications Technician: ARA WRIGHT ([phone])[facility])[address] [place] [address] Basic metabolic 1998 panelOr dered By: Gold Diaz on 07-05-2024 Anion gap [Moles/Vol] 8 mmol/L 3 - 13 mmol/L [facility] Calcium [Mass/Vol] 8.6 mg/dL 8.4 - 10. 4 mg/dL [facility] Chloride [Moles/Vol] 100 mmol/L 98 - 10 7 mmol/L [facility] CO2 [Moles/Vol] 18 mmol/L Low 22 - 30 mmol/L [facility] Creatinine [Mass/Vol] 1.13 mg/dL 0.66 - 1.25 mg/dL [facility] GFR/1.73 sq M.predicted (S/P/Bld) [Vol rate/Area] 72.6 mL/min - PINF [facility] Comment on above: Calculation based on the Chronic Kidney Disease Epidemiology Collaboration (CKD-EPI) equation refit without adjustment for race Glucose [Mass/Vol] 125 mg/dL High 70 - 100 mg/dL [facility] Interpretation and review of laboratory results Abnormal [facility] Potassium [Moles/Vol] 3.1 mmol/L Low 3.5 - 5.1 mmol/L [facility] Sodium [Moles/Vol] 127 mmol/L Low 135 - 145 mmol/L [facility] Urea nitrogen [Mass/Vol] 17 mg/dL 9 - 20 mg/dL [facility] C. DIFFICILE BY PCR WITH REF BEATRICE TO EIAon 07-05-2024 C. DIFFICILE BY PCR WITH REFLEX TO EIA C. DIFFICILE TOXIN PCR Reference Not Detected Not Detected ORDER COMMENTS: C. difficile infection is unlikely to be present. Methodology: Real-time PCR Normal [facility] Comment on above: Performed By: #### L [id number], [id number] ####Senior Telecommunications Technician: ARA WRIGHT ([phone])[address] C. difficile toxin genes SHANE +probe Ql (Stl)on 07-05-2024 C. difficile toxin B tcdB gene SHANE+probe Ql (Stl) Not detected Not Detected [facility] Interpretation and review of laboratory results Normal [facility] C. difficile infecti on is unlikely to be present. Methodology: Real-time PCR [facility] CALPROTECTIN STOOL (BKR QUES T)on 07-05-2024 [facility] CALPROTECTIN, STOOL 38 mcg/g Normal [facility] Comment on above: Result Comment: Refe rence Range: <50 Normal 50-120 Borderline >120 ElevatedCalprotectin in Crohn's disease and ulcerativecolitis can be five to several thousand timesabove the reference population (50 mcg/g or less).Levels are usually 50 mcg/g or less in healthypatients and with irritable bowel syndrome. Repeattesting in 4-6 weeks is suggested for borderlinevalues.Test performed by [facility] [id number] [place] [address] Fwuvirn Director: Rochelle Rodriguez MD,PHD,MBATest Reported by [facility],[address] [place], [place] [address]Qdsoozshaider Soto M.D., Ph.D., Director of [phone], CLIA [id number] Performed By: #### L [id number] ####[employer] (AMDBEAKER)[id number] [place], [facility] CBC W Auto Differential pane l (Bld)on 07-05-2024 Basophils (Bld) [#/Vol] 0.1 10*3/uL 0.0 - 0.2 10*3/uL [facility] Basophils/100 WBC (Bld) 0.7 % 0.0 - 2.0 % [facility] Eosinophils (Bld) [#/Vol] 0.1 10*3/uL 0.0 - 0.5 10*3/uL [facility] Eosinophils/100 WBC (Bld) 2.1 % 0.0 - 6.0 % [email or web address] Erythrocyte distribution width (RBC) [Ratio] 12.8 % 11.5 - 15.0 % [email or web address] Hematocrit (Bld) [Volume fraction] 31.6 % Low 40.0 - 52.0 % [facility] Hemoglobin (Bld) [Mass/Vol] 10.9 g/dL Low 13.0 - 18.0 g/dL [facility] Immature granulocytes (Bld) [#/Vol] 0.0 10*3/uL NINF - 0.1 10*3/uL [facility] Immature granulocytes/100 WBC (Bld) 0.4 % 0.0 - 2.0 % [email or web address] Interpretation and review of laboratory results Abnormal [facility] Lymphocytes (Bld) [#/Vol] 1.6 10*3/uL 1.0 - 4.3 10*3/uL [facility] Lymphocytes/100 WBC (Bld) 24.0 % 15.0 - 45.0 % [email or web address] MCH (RBC) [Entitic mass] 29.8 pg 26.0 - 34.0 pg [facility] MCHC (RBC) [Mass/Vol] 34.5 % 30.5 - 36.0 % [facility] [email or web address] MCV (RBC) [Entitic vol] 86.3 fL 77.0 - 99.0 fL [facility] Monocytes (Bld) [#/Vol] 0.6 10*3/uL 0.0 - 0.9 10*3/uL [facility] Monocytes/100 WBC (Bld) 9.1 % 5.0 - 13.0 % [facility] Neutrophils (Bld) [#/Vol] 4.3 10*3/uL 1.8 - 7.5 10*3/uL [facility] Neutrophils/100 WBC (Bld) 63.7 % 38.0 - 82.0 % [facility] Nucleated RBC/100 WBC (Bld) [Ratio] 0.0 % [facility] Platelet mean volume (Bld) [Entitic vol] 9.1 fL 9.0 - 12.7 fL [facility] Platelets (Bld) [#/Vol] 187 10*3/uL 140 - 440 10*3/uL [facility] RBC (Bld) [#/Vol] 3.66 10*6/uL Low 4.40 - 5.9 0 10*6/uL [facility] WBC (Bld) [#/Vol] 6.7 10*3/uL 3.6 - 10.7 10*3/uL [facility] CBC WITH AUTO DIFFERENTIALon 07-05-2024 Basophils (Bld) [#/Vol] 0.1 10*3/uL Normal 0.0-0.2 [facility] Comment on above: Performed By: #### L [id number] ####Senior Telecommunications Technician: ARA WRIGHT ([phone])[address] Basophils/100 WBC (Bld) 0.7 % Normal 0.0-2.0 [facility] Comment on above: Performed By: #### L [id number] ####Senior Telecommunications Technician: ARA WRIGHT ([phone])[facility] ([facility])[address] [place] [address] Eosinophils (Bld) [#/Vol] 0.1 10*3/uL Normal 0.0-0.5 [facility] Comment on above: Performed By: #### L [id number] ####Senior Telecommunications Technician: ARA WRIGHT ([phone])[facility])[address] [place] [address] Eosinophils/100 WBC (Bld) 2.1 % Normal 0.0-6.0 [facility] Comment on above: Performed By: #### L [id number] ####Senior Telecommunications Technician: ARA WRIGHT ([phone])[address] Erythrocyte distribution width (RBC) [Ratio] 12.8 % Normal 11.5-15.0 [facility] Comment on above: Performed By: #### L [id number] ####Senior Telecommunications Technician: ARA WRIGHT ([phone])[address] Hematocrit (Bld) [Volume fraction] 31.6 % Low 40.0-52.0 [facility] Comment on above: Performed By: #### L [id number] ####Senior Telecommunications Technician: ARA WRIGHT ([phone])[address] Hemoglobin (Bld) [Mass/Vol] 10.9 g/dL Low 13.0-18.0 [facility] Comment on above: Performed By: #### L [id number] ####Senior Telecommunications Technician: ARA WRIGHT ([phone])[address] IMMATURE GRANS % 0.4 % Normal 0.0-2.0 [facility] Comment on above: Performed By: #### L [id number] ####Senior Telecommunications Technician: ARA WRIGHT ([phone])[address] IMMATURE GRANS ABSOLUTE 0.0 10*3/uL Normal <0.1 [facility] Comment on above: Performed By: #### L [id number] ####Senior Telecommunications Technician: ARA WRIGHT ([phone])[facility])[address] [place] [address] Lymphocytes (Bld) [#/Vol] 1.6 10*3/uL Normal 1.0-4.3 [facility] Comment on above: Performed By: #### L [id number] ####Senior Telecommunications Technician: ARA WRIGHT ([phone])[facility])[address] [place] [address] Lymphocytes/100 WBC (Bld) 24.0 % Normal 15.0-45.0 [facility] Comment on above: Performed By: #### L [id number] ####Senior Telecommunications Technician: ARA WRIGHT ([phone])[facility])[address] [place] [address] MCH (RBC) [Entitic mass] 29.8 pg Normal 26.0-34.0 [facility] Comment on above: Performed By: #### L [id number] ####Senior Telecommunications Technician: ARA WRIGHT ([phone])[facility])[address] [place] [address] MCHC 34.5 % Normal 30.5-36.0 [facility] Comment on above: Performed By: #### L [id number] ####Senior Telecommunications Technician: ARA WRIGHT ([phone])[facility])[address] [place] [address] MCV (RBC) [Entitic vol] 86.3 fL Normal 77.0-99.0 [facility] Comment on above: Performed By: #### L [id number] ####Senior Telecommunications Technician: ARA WRIGHT ([phone])[facility])[address] [place] [address] Monocytes (Bld) [#/Vol] 0.6 10*3/uL Normal 0.0-0.9 [facility] Comment on above: Performed By: #### L [id number] ####Senior Telecommunications Technician: ARA WRIGHT ([phone])[facility])[address] [place] [address] Monocytes/100 WBC (Bld) 9.1 % Normal 5.0-13.0 [facility] Comment on above: Performed By: #### L [id number] ####Senior Telecommunications Technician: ARA WRIGHT ([phone])[facility])[address] [place] [address] NEUTROPHILS ABSOLUTE 4.3 10*3/uL Normal 1.8-7.5 [facility] Comment on above: Performed By: #### L [id number] ####Senior Telecommunications Technician: ARA WRIGHT ([phone])[facility])[address] [place] [address] Neutrophils/100 WBC (Bld) 63.7 % Normal 38.0-82.0 [facility] Comment on above: Performed By: #### L [id number] ####Senior Telecommunications Technician: ARA WRIGHT ([id number])[facility] ([facility])[address] [place] [address] NRBC 0.0 /100 WBCs Normal 0.0-2.0 [facility] Comment on above: Performed By: #### L [id number] ####Senior Telecommunications Technician: ARA WRIGHT ([phone])[facility] ([facility])[address] [place] [address] Platelet mean volume (Bld) [Entitic vol] 9.1 fL Normal 9.0-12.7 [facility] Comment on above: Performed By: #### L [id number] ####Senior Telecommunications Technician: ARA WRIGHT ([phone])[facility] ([facility])[address] [place] [address] Platelets (Bld) [#/Vol] 187 10*3/uL Normal 140-440 [facility] Comment on above: Performed By: #### L [id number] ####Senior Telecommunications Technician: ARA WRIGHT ([phone])[facility] ([facility])[address] [place] [address] RBC (Bld) [#/Vol] 3.66 10*6/uL Low 4.40-5.90 [facility] Comment on above: Performed By: #### L [id number] ####Senior Telecommunications Technician: ARA WRIGHT ([phone])[facility] ([facility])[address] [place] [address] WBC (Bld) [#/Vol] 6.7 10*3/uL Normal 3.6-10.7 [facility] Comment on above: Performed By: #### L [id number] ####Senior Telecommunications Technician: ARA ROBERTSONTim ([phone])[facility] ([facility])[address] [place] [address] CT ABDOMEN PELVIS W CONTRAST on 07-05-2024 CT ABDOMEN PELVIS W CONTRAST Normal [facility] CT Abdomen and Pelvis W cont rast Joaquin 07-05-2024 1. No acute process. Report Dictated on Electronically Signed By: Lloyd Onofre MD Electronically Signed Date/Time: 07/05/2024 1:55 PM T [facility] [employer] [facility] 1960 [id number] Exam Date/Time: 07/05/2024 13:10 Procedure: CT ABDOMEN [...] identified. Mild retrolisthesis of L2-3, L2-L5 laminectomies. [facility] Lloyd Onofre M D - 07/05/2024 [...] Signed Date/Time: 07/05/2024 1:55 PM EDT [facility] Radiology Study observation (narrative) [facility] CT Abdomen and Pelvis W cont rast IVOrdered By: Lloyd Onofre on 07-05-2024 [facility] [email or web address] Work Phone: Consulton 07-05-2024 Consult Normal [facility] Consult Normal [facility] Consult Normal [facility] Consult Normal [facility] Consult Normal [facility] FECAL FAT, QUALITATIVEon FECAL FAT - NEUTRAL Normal Normal Normal [facility] Comment on above: Performed By: #### L [id number] ####[facility] ([facility])[address] [place] [address] [place] FECAL FAT - SPLIT Normal Normal Normal [facility] Comment on above: Result Comment: INTE RPRETIVE INFORMATION: Fecal Fat QualitativeNeutral fats include the monoglycerides, diglycerides, andtriglycerides while split fats are the free fatty acidsthat are liberated from them. Impaired synthesis orsecretion of pancreatic enzymes or bile may cause anincrease in neutral fats while an increase in split fatssuggests impaired absorption of nutrients.Performed By: [facility] [place], [place] [address]ck[employer] Director: Ana Heredia MD, PhDCLIA Number: [id number] Performed By: #### L [id number] ####[facility] ([facility])[address] [place] [address] [place] GASTROINTESTINAL PCR PANELon 07-05-2024 GASTROINTESTINAL PCR PANEL Normal [facility] Comment on above: Performed By: #### L [id number], [id number] ####Senior Telecommunications Technician: ARA WRIGHT ([phone])[facility] ([facility] Gastrointestinal pathogens p mac SHANE+probe (Stl)Ordered By: Jose Bell on 07-05-2024 Adenovirus F 40/41 Not detected Not Detected [facility] Astrovirus Not detected Not Detected [facility] Campylobacter Not detected Not Detected [facility] Cryptosporidium Not detected Not Detected [facility] Cyclospora cayetanensis Not detected Not Detected [facility] Entamoeba histolytica Not detected Not Detected [facility] Enterotoxigenic E coli (ETEC) Not detected Not Detected [facility] Giardia lamblia Not detected Not Detected [facility] Interpretation and review of laboratory results Normal [facility] Norovirus GI/GII Not detected Not Detected [facility] Plesiomonas shigelloides Not detected Not Detected [facility] Rotavirus A Not detected Not Detected [facility] Salmonella Not detected Not Detected [facility] Sapovirus Not detected Not Detected [facility] Shiga toxin-producing E coli (STEC) Not detected Not Detected [facility] Shigella/Enteroinvasiv e E coli (EIEC) Not detected Not Detected [facility] Vibrio cholerae Not detected Not Detected [facility] Vibrio species Not detected Not Detected [facility] Yersinia enterocolitica Not detected Not Detected [facility] A positive Norovirus result on the Film Array GI panel should be interpreted in the context of the patient's history and clinical picture. If results are not consistent, result should be confirmed with a Norovirus specific assay. Methodology: Multiplex PCR [facility] IDNon 07-05-2024 IDN Normal [facility] IDN Normal [facility] LACTIC ACID WITH REFLEXon Lactate [Moles/Vol] 0.7 mmol/L Normal 0.7-2.0 [facility] Comment on above: Performed By: #### L [id number] ####Senior Telecommunications Technician: ARA WRIGHT ([phone])[facility] ([facility])[address] [place] [address] LIPASEon 07-05-2024 Lipase [Catalytic activity/Vol] 134 U/L Normal 23-300 [facility] Comment on above: Performed By: #### L AB99, LAB15 ####Senior Telecommunications Technician: ARA WRIGHT ([phone])[facility] ([address] Laboratory - Chemistry and C hemistry - challengeon 07-05-2024 Lipase [Catalytic activity/Vol] 134 U/L 23 - 300 U/L [facility] Lactate [Moles/Vol] 0.7 mmol/L 0.7 - 2. 0 mmol/L [facility] Lipase [Catalytic activity/V ol]on 07-05-2024 Interpretation and review of laboratory results Normal [facility] No Panel Informationon 07-05 Interpretation and review of laboratory results Normal [facility] Progress Noteon 07-05-2024 Progress Note Normal [facility] Progress Note Normal [facility] Progress Note Normal [facility] Progress Note Normal [facility] US ABDOMEN COMPLETEon 2023 US ABDOMEN COMPLETE Normal [facility] US Abdomenon 07-05-2024 1. Status post cholecystectomy. No biliary ductal dilatation. 2. Mild hepatocellular disease. 3. Pancreas is obscured by overlying bowel gas and not well visualized or evaluated. Report Dictated on Electronically Signed By: Juan Jose Abreu MD Electronically Signed Date/Time: 07/05/2024 8:51 AM EDT [facility] Patient Name: WOODY NI : [...] Gallbladder/biliary: Status post cholecystectomy. As per the creative technologist, no sonographic Ortiz sign was present. [...] No significant ascites or other additional abnormality [facility] Lulu Abreu MD - 07/05/2024 Patient [...] Gallbladder/biliary: Status post cholecystectomy. As per the creative technologist, no sonographic Ortiz sign was present. [...] Signed Date/Time: 07/05/2024 8:51 AM EDT [facility] Radiology Study observation (narrative) [facility] US AbdomenOrdered By: Lisandro Abreu on 07-05-2024 [facility] [email or web address] Work Phone: AMMONIAon 07-04-2024 Ammonia (P) [Moles/Vol] 17 umol/L Normal 9-30 [facility] Comment on above: Performed By: #### L [id number] ####Senior Telecommunications Technician: TRESSA SANTIZO ([phone])[facility] ([facility])[address] [place] [address] BETA HYDROXYBUTYRATEon 07-04 BETA HYDROXYBUTYRATE 20.30 mg/dL High 0.20-2.81 [facility] Comment on above: Performed By: #### L [id number], LAB99, [id number], LAB17, [id number], LAB46 ####Senior Telecommunications Technician: ARA WRIGHT ([phone])[facility] [place] [facility] ([facility])[address] BLOOD GAS, VENOUS (SWR AND S HC)on 07-04-2024 BASE EXCESS (MMOL/L) IN VENOUS BLOOD -8.0 mmol/L Low -3.0-3.0 [facility] Comment on above: Performed By: #### L [id number] ####Senior Telecommunications Technician: ARA WRIGHT ([phone])[facility] [place] [facility] ([facility])[address] [place] [address] CARBON DIOXIDE (MM HG) IN VENOUS BLOOD 32 mm(Hg) Low 40-55 [facility] Comment on above: Performed By: #### L [id number] ####Senior Telecommunications Technician: ARA WRIGHT ([phone])[facility] [place] [facility] ([facility])[address] [place] [address] [place] OXYGEN (MM HG) IN VENOUS BLOOD 62 mm(Hg) Normal [facility] Comment on above: Performed By: #### L [id number] ####Senior Telecommunications Technician: ARA WRIGHT ([phone])[facility] [place] [facility] ([facility])[address] [place] [address] [place] OXYGEN SATURATION (%) IN VENOUS BLOOD 90.0 % High 60.0-80.0 [facility] Comment on above: Performed By: #### L [id number] ####Senior Telecommunications Technician: ARA WRIGHT ([phone])[facility] [place] ([facility])[address] [place] [address] BLOOD GAS, VENOUS (SWR AND S HC)Ordered By: Bhupinder Motta on 07-04-2024 CO2 [Moles/Vol] 18.0 mmol/L Low 24.0-28.0 [facility] Comment on above: Performed By: #### L [id number] ####Senior Telecommunications Technician: ARA WRIGHT ([phone])[facility] ([facility])[address] [place] [address] HCO3 (Bld) [Moles/Vol] 17.5 mmol/L Low 23.0-27.0 [facility] Comment on above: Performed By: #### L [id number] ####Senior Telecommunications Technician: ARA WRIGHT ([phone])[facility] ([facility])[address] [place] [address] pH (Bld) 7.343 [pH] Normal 7.310-7.410 [facility] Comment on above: Performed By: #### L [id number] ####Senior Telecommunications Technician: ARA WRIGHT ([phone])[facility] ([facility])[address] [place] [address] Source Of Oxygen Room Air Normal [facility] Comment on above: Performed By: #### L [id number] ####Senior Telecommunications Technician: ARA WRIGHT ([phone])[facility] ([facility])[address] [place] [address] CBC W Auto Differential pane l (Bld)Ordered By: Diana Núñez on 07-04-2024 Basophils (Bld) [#/Vol] 0.1 10*3/uL 0.0 - 0.2 10*3/uL [facility] Basophils/100 WBC (Bld) 0.7 % 0.0 - 2.0 % [facility] Eosinophils (Bld) [#/Vol] 0.1 10*3/uL 0.0 - 0.5 10*3/uL [facility] Eosinophils/100 WBC (Bld) 1.5 % 0.0 - 6.0 % [facility] Erythrocyte distribution width (RBC) [Ratio] 12.8 % 11.5 - 15.0 % [facility] Hematocrit (Bld) [Volume fraction] 32.5 % Low 40.0 - 52.0 % [facility] Hemoglobin (Bld) [Mass/Vol] 11.7 g/dL Low 13.0 - 18.0 g/dL [facility] Immature granulocytes (Bld) [#/Vol] 0.0 10*3/uL NINF - 0.1 10*3/uL [facility] [facility] Immature granulocytes/100 WBC (Bld) 0.3 % 0.0 - 2.0 % [facility] Interpretation and review of laboratory results Abnormal [facility] Lymphocytes (Bld) [#/Vol] 2.5 10*3/uL 1.0 - 4.3 10*3/uL [facility] Lymphocytes/100 WBC (Bld) 26.3 % 15.0 - 45.0 % [facility] MCH (RBC) [Entitic mass] 30.5 pg 26.0 - 34.0 pg [facility] MCHC (RBC) [Mass/Vol] 36.0 % 30.5 - 36.0 % [facility] MCV (RBC) [Entitic vol] 84.6 fL 77.0 - 99.0 fL [facility] Monocytes (Bld) [#/Vol] 0.7 10*3/uL 0.0 - 0.9 10*3/uL [facility] Monocytes/100 WBC (Bld) 7.5 % 5.0 - 13.0 % [facility] Neutrophils (Bld) [#/Vol] 6.1 10*3/uL 1.8 - 7.5 10*3/uL [facility] Neutrophils/100 WBC (Bld) 63.7 % 38.0 - 82.0 % [facility] Nucleated RBC/100 WBC (Bld) [Ratio] 0.0 % [facility] Platelet mean volume (Bld) [Entitic vol] 8.9 fL Low 9.0 - 12.7 fL [facility] Comment on above: MPV is a calculated measurement using platelet volume ratio Platelets (Bld) [#/Vol] 227 10*3/uL 140 - 440 10*3/uL [facility] RBC (Bld) [#/Vol] 3.84 10*6/uL Low 4.40 - 5.9 0 10*6/uL [facility] WBC (Bld) [#/Vol] 9.6 10*3/uL 3.6 - 10.7 10*3/uL [facility] CBC WITH AUTO DIFFERENTIALon 07-04-2024 Basophils (Bld) [#/Vol] 0.1 10*3/uL Normal 0.0-0.2 [facility] Comment on above: Performed By: #### L [id number] ####Senior Telecommunications Technician: ARA WRIGHT ([phone])[facility] (SWRLAB)[address] [place] [address] [place] Basophils/100 WBC (Bld) 0.7 % Normal 0.0-2.0 [facility] Comment on above: Performed By: #### L [id number] ####Senior Telecommunications Technician: ARA WRIGHT ([phone])[facility] (SWRLAB)[address] [place] [address] Eosinophils (Bld) [#/Vol] 0.1 10*3/uL Normal 0.0-0.5 [facility] Comment on above: Performed By: #### L [id number] ####Senior Telecommunications Technician: ARA WRIGHT ([phone])[facility] (SWRLAB)[address] [place] [address] Eosinophils/100 WBC (Bld) 1.5 % Normal 0.0-6.0 [facility] Comment on above: Performed By: #### L [id number] ####Senior Telecommunications Technician: ARA WRIGHT ([phone])[facility]ITALOct[facility] LARADAKOTA RITTMAN (SWRLAB)[address] [place] [address] Erythrocyte distribution width (RBC) [Ratio] 12.8 % Normal 11.5-15.0 [facility] Comment on above: Performed By: #### L [id number] ####Senior Telecommunications Technician: ARA WRIGHT ([phone])[facility] (SWRLAB)[address] [place] [address] Hematocrit (Bld) [Volume fraction] 32.5 % Low 40.0-52.0 [facility] Comment on above: Performed By: #### L [id number] ####Senior Telecommunications Technician: ARA WRIGHT ([phone])[facility] [place]UNC[place] RITTMAN (SWRLAB)[address] [place] [address] Hemoglobin (Bld) [Mass/Vol] 11.7 g/dL Low 13.0-18.0 [facility] Comment on above: Performed By: #### L [id number] ####Senior Telecommunications Technician: ARA WRIGHT ([phone])[facility] [place] (SWRLAB)[address] [place] [address] IMMATURE GRANS % 0.3 % Normal 0.0-2.0 [facility] Comment on above: Performed By: #### L [id number] ####Senior Telecommunications Technician: ARA WRIGHT ([phone])[facility]ITAL[facility] D[place] (SWRLAB)[address] [place] [address] IMMATURE GRANS ABSOLUTE 0.0 10*3/uL Normal <0.1 [facility] Comment on above: Performed By: #### L [id number] ####Senior Telecommunications Technician: ARA WRIGHT ([phone])[facility]ITAL[facility] [place] RITTM[place] (SWRLAB)[address] [place] [address] Lymphocytes (Bld) [#/Vol] 2.5 10*3/uL Normal 1.0-4.3 [facility] Comment on above: Performed By: #### L [id number] ####Senior Telecommunications Technician: ARA WRIGHT ([phone])[facility]ITAL[facility] [place] R[place]TM[place] (SWRLAB)[address] [place] [address] Lymphocytes/100 WBC (Bld) 26.3 % Normal 15.0-45.0 [facility] Comment on above: Performed By: #### L [id number] ####Senior Telecommunications Technician: ARA WRIGHT ([phone])[facility]ITAL[facility] [place] R[place] (SWRLAB)[address] [place] [address] MCH (RBC) [Entitic mass] 30.5 pg Normal 26.0-34.0 [facility] Comment on above: Performed By: #### L [id number] ####Senior Telecommunications Technician: ARA WRIGHT ([phone])[facility] [place] R[place] (SWRLAB)[address] [place] [address] MCHC 36.0 % Normal 30.5-36.0 [facility] Comment on above: Performed By: #### L [id number] ####Senior Telecommunications Technician: ARA WRIGHT ([phone])[facility] [place] RIT[place] (SWRLAB)[address] [place] [address] MCV (RBC) [Entitic vol] 84.6 fL Normal 77.0-99.0 [facility] Comment on above: Performed By: #### L [id number] ####Senior Telecommunications Technician: ARA WRIGHT ([phone])[facility] [place] (SWRLAB)[address] [place] [address] Monocytes (Bld) [#/Vol] 0.7 10*3/uL Normal 0.0-0.9 [facility] Comment on above: Performed By: #### L [id number] ####Senior Telecommunications Technician: ARA WRIGHT ([phone])[facility] [place] RIT[place]AN (SWRLAB)[address] [place] [address] [place] Monocytes/100 WBC (Bld) 7.5 % Normal 5.0-13.0 [facility] Comment on above: Performed By: #### L [id number] ####Senior Telecommunications Technician: ARA WRIGHT ([phone])[facility] [place] RIT[place]AN (SWRLAB)[address] [place] [address] [place] NEUTROPHILS ABSOLUTE 6.1 10*3/uL Normal 1.8-7.5 [facility] Comment on above: Performed By: #### L [id number] ####Senior Telecommunications Technician: ARA WRIGHT ([phone])[facility] [place] RITTMAN (SWRLAB)[address] [place] [address] Neutrophils/100 WBC (Bld) 63.7 % Normal 38.0-82.0 [facility] Comment on above: Performed By: #### L [id number] ####Senior Telecommunications Technician: ARA WRIGHT ([phone])[facility]ITALOctavia GUSTAFSONTMAN (SWRLAB)[address] [place] [address] NRBC 0.0 /100 WBCs Normal 0.0-2.0 [facility] Comment on above: Performed By: #### L [id number] ####Senior Telecommunications Technician: ARA WRIGHT ([phone])[facility]ITALOct[facility] GUSTAFSONTMAN (SWRLAB)[address] [place] [address] Platelet mean volume (Bld) [Entitic vol] 8.9 fL Low 9.0-12.7 [facility] Comment on above: Result Comment: MPV is a calculated measurement using platelet volume ratio Performed By: #### L [id number] ####Senior Telecommunications Technician: ARA WRIGHT ([phone])[facility]ITAL[facility] GUSTAFSONTMAN (SWRLAB)[address] [place] [address] [place] Platelets (Bld) [#/Vol] 227 10*3/uL Normal 140-440 [facility] Comment on above: Performed By: #### L [id number] ####Senior Telecommunications Technician: ARA WRIGHT ([phone])[facility]ITAL[facility] D[place] RIT[place] (SWRLAB)[address] [place] [address] RBC (Bld) [#/Vol] 3.84 10*6/uL Low 4.40-5.90 [facility] Comment on above: Performed By: #### L [id number] ####Senior Telecommunications Technician: ARA WRIGHT ([phone])[facility]ITAL[facility] DUNC[place] RIT[place] (SWRLAB)[address] [place] [address] [place] WBC (Bld) [#/Vol] 9.6 10*3/uL Normal 3.6-10.7 [facility] Comment on above: Performed By: #### L [id number] ####Senior Telecommunications Technician: ARA WRIGHT ([phone])[facility] [place]UNC[place] RITTMAN (SWRLAB)[address] COMPREHENSIVE METABOLIC PANE Peter 07-04-2024 Albumin [Mass/Vol] 4.1 g/dL Normal 3.5-5.0 [facility] Comment on above: Performed By: #### L [id number], LAB99, UND362, LAB17, CQL013, LAB46 ####Senior Telecommunications Technician: ARA WRIGHT ([phone])[facility]ITAL[facility] DUNC[place] R[place] (SWRLAB)[address] ALP [Catalytic activity/Vol] 68 U/L Normal 38-126 [facility] Comment on above: Performed By: #### L AB0670, LAB99, PRT541, LAB17, RMO104, LAB46 ####Senior Telecommunications Technician: ARA WRIGHT ([phone])[facility]ITAL[facility] [place] (SWRLAB)[address] ALT [Catalytic activity/Vol] 17 U/L Normal 0-49 [facility] Comment on above: Performed By: #### L [id number], LAB99, XZU950, LAB17, OOF924, LAB46 ####Senior Telecommunications Technician: ARA WRIGHT ([phone])[facility]ITALOct[facility] [place] RITTM[place] (SWRLAB)[address] [place] [address] Anion gap [Moles/Vol] 20 mmol/L High 3-13 [facility] Comment on above: Performed By: #### L [id number], LAB99, OOW237, LAB17, KWG604, LAB46 ####Senior Telecommunications Technician: ARA WRIGHT ([phone])[facility]ITALOct[facility] [place] RITTM[place] (SWRLAB)[address] [place] [address] [place] AST [Catalytic activity/Vol] 38 U/L Normal 15-46 [facility] Comment on above: Performed By: #### L [id number], LAB99, OJS394, LAB17, OER597, LAB46 ####Senior Telecommunications Technician: ARA WRIGHT ([phone])[facility]ITALOct[facility] DUNC[place] RITTMAN (SWRLAB)[address] [place], [place] [address] [place] Bilirubin [Mass/Vol] 0.8 mg/dL Normal 0.2-1.3 [facility] Comment on above: Performed By: #### L [id number], LAB99, DBH645, LAB17, CZV518, LAB46 ####Senior Telecommunications Technician: ARA WRIGHT ([phone])[facility]ITALOct[facility] [place] RIT[place] (SWRLAB)[address] Calcium [Mass/Vol] 8.8 mg/dL Normal 8.4-10.4 [facility] Comment on above: Performed By: #### L ZT8643, LAB99, HPP635, LAB17, ZYV238, LAB46 ####Senior Telecommunications Technician: ARA WRIGHT ([phone])[facility] [place] (SWRLAB)[address] [place] [address] [place] Chloride [Moles/Vol] 90 mmol/L Low 98-107 [facility] Comment on above: Performed By: #### L AY0840, LAB99, ZYE194, LAB17, JZA849, LAB46 ####Senior Telecommunications Technician: ARA WRIGHT ([phone])[facility]ITALOct[facility] [place] R[place] (SWRLAB)[address] [place] [address] [place] CO2 [Moles/Vol] 14 mmol/L Low 22-30 [facility] Comment on above: Performed By: #### L UV1009, LAB99, YQG910, LAB17, ZWQ455, LAB46 ####Senior Telecommunications Technician: ARA WRIGHT ([phone])[facility]ITALOct[facility] [place] (SWRLAB)[address] Creatinine [Mass/Vol] 1.33 mg/dL High 0.66-1.25 [facility] Comment on above: Performed By: #### L MZ2850, LAB99, ONV562, LAB17, VUN406, LAB46 ####Senior Telecommunications Technician: ARA WRIGHT ([phone])[facility]ITALOct[facility] [place] (SWRLAB)[address] GLOMERULAR FILTRATION RATE ML/MIN/1.73 SQ M.PREDICTED 59.7 mL/min/1.73m*2 Low >60.0 [facility] Comment on above: Result Comment: Calc ulation based on the Chronic Kidney Disease Epidemiology Collaboration (CKD-EPI) equation refit without adjustment for race Performed By: #### L VG0424, LAB99, ELV491, LAB17, EYS669, LAB46 ####Senior Telecommunications Technician: ARA WRIGHT ([phone])[facility]ITAL[facility] [place] (SWRLAB)[address] Glucose [Mass/Vol] 86 mg/dL Normal 70-100 [facility] Comment on above: Performed By: #### L [id number], LAB99, NVD046, LAB17, EZU573, LAB46 ####Senior Telecommunications Technician: ARA WRIGHT ([phone])[facility]ITAL[facility] [place] R[place] (SWRLAB)[address] [place] [address] [place] Potassium [Moles/Vol] 2.7 mmol/L Low 3.5-5.1 [facility] Comment on above: Performed By: #### L AZ6086, LAB99, HMF820, LAB17, KZO103, LAB46 ####Senior Telecommunications Technician: ARA WRIGHT ([phone])[facility]ITALOct[facility] [place] (SWRLAB)[address] [place] [address] Protein [Mass/Vol] 6.6 g/dL Normal 6.3-8.2 [facility] Comment on above: Performed By: #### L NU9749, LAB99, TIH431, LAB17, UXP432, LAB46 ####Senior Telecommunications Technician: ARA WRIGHT ([phone])[facility]ITALOct[facility] [place] R[place]TM[place] (SWRLAB)[address] [place] [address] [place] Sodium [Moles/Vol] 124 mmol/L Low 135-145 [facility] Comment on above: Performed By: #### L NR2583, LAB99, DCU869, LAB17, XHG041, LAB46 ####Senior Telecommunications Technician: ARA WRIGHT ([phone])[facility] (SW[facility])[address] [place] [address] Urea nitrogen [Mass/Vol] 18 mg/dL Normal 9-20 [facility] Comment on above: Performed By: #### L RP6394, LAB99, GQS919, LAB17, WHO153, LAB46 ####Senior Telecommunications Technician: ARA WRIGHT ([phone])[facility] (SWRLAB)[address] [place] [address] CT HEAD WO IV CONTRASTon CT HEAD WO IV CONTRAST Normal [facility] CT Head WO contraston 2023 No acute intracrania l abnormality. 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 Report Dictated on Electronically Signed By: Barbara Henriquez MD Electronically Signed Date/Time: 07/04/2024 6:28 PM EDT [facility] : 1960 [id number] Exam Date/Time: 07/04/2024 18:06 Procedure: CT HEAD [...] Orbits: Normal Calvarium and skull base: Normal [facility] Barbara Herniquez M D - 07/04/2024 Patient Name: WOODY NI: 1960 [facility]#: [id number] Exam Date/Time: 07/04/2024 18:06 Procedure: CT HEAD [...] Signed Date/Time: 07/04/2024 6:28 PM EDT [facility] Radiology Study observation (narrative) [facility] CT Head WO contrastOrdered B y: Barbara Henriquez on 07-04-2024 [email or web address] Work Phone: Comprehensive metabolic 1998 panelon 07-04-2024 Albumin [Mass/Vol] 4.1 g/dL 3.5 - 5.0 g/dL [facility] ALP [Catalytic activity/Vol] 68 U/L 38 - 126 U/L [facility] ALT [Catalytic activity/Vol] 17 U/L 0 - 49 U/L [facility] Anion gap [Moles/Vol] 20 mmol/L High 3 - 13 mmol/L [facility] AST [Catalytic activity/Vol] 38 U/L 15 - 46 U/L [facility] Bilirubin [Mass/Vol] 0.8 mg/dL 0.2 - 1 .3 mg/dL [facility] Calcium [Mass/Vol] 8.8 mg/dL 8.4 - 10. 4 mg/dL [facility] Chloride [Moles/Vol] 90 mmol/L Low 98 - 10 7 mmol/L [facility] CO2 [Moles/Vol] 14 mmol/L Low 22 - 30 mmol/L [facility] Creatinine [Mass/Vol] 1.33 mg/dL High 0.66 - 1.25 mg/dL [facility] GFR/1.73 sq M.predicted (S/P/Bld) [Vol rate/Area] 59.7 mL/min Low - PINF [facility] Comment on above: Calculation based on the Chronic Kidney Disease Epidemiology Collaboration (CKD-EPI) equation refit without adjustment for race Glucose [Mass/Vol] 86 mg/dL 70 - 100 mg/dL [facility] Potassium [Moles/Vol] 2.7 mmol/L Low 3.5 - 5.1 mmol/L [facility] Protein [Mass/Vol] 6.6 g/dL 6.3 - 8.2 g/dL [facility] Sodium [Moles/Vol] 124 mmol/L Low 135 - 145 mmol/L [facility] Urea nitrogen [Mass/Vol] 18 mg/dL 9 - 20 mg/dL [facility] ECG 12-LEADon 07-04-2024 ECG 12-LEAD IMPRESSION: Sinus rhythm RBBB and LAFB Electronically Signed On 07-04-2024 17:44:57 EDT by Ashley Bell Normal [facility] ED Nursing Noteon 07-04-2024 ED Nursing Note Report to Diana BRODERICK [address] [place] [address]. Pt signed transfer consent. Emilee Gonzalez RN 07/04/24 8053 [facility] ED Nursing Note Attempted to call re port to W. On hold x 6 min. Will try again Emilee Gonzalez RN 07/04/24 2212 Normal [facility] ED Nursing Note Pt to [facility] via [employer] are. Pt a&ox4. VSS at transfer [facility] ED Nursing Note Normal [facility] ED Provider Noteon ED Provider Note Normal [facility] ETHANOLon 07-04-2024 ETHANOL IN SER/PLAS 0.032 g/dL High 0.000-0.010 [facility] Comment on above: Result Comment: ORDE R COMMENTS:NOTE: This result is for medical treatment only. Analysis performed using non-forensic procedures. Performed By: #### L [id number], LAB99, WZV779, LAB17, ONV753, LAB46 ####Senior Telecommunications Technician: ARA WRIGHT ([phone])[facility]ITALOct[facility] [place] (SWRLAB)[address] [place] [address] Ethanol (Bld) [Mass/Vol]on 0 07-04-2024 Ethanol [Mass/Vol] 0.032 g/dL High 0.000 - 0.010 g/dL [facility] LACTIC ACID WITH REFLEXon Lactate [Moles/Vol] 0.6 mmol/L Low 0.7-2.0 [facility] Comment on above: Performed By: #### L [id number] ####Senior Telecommunications Technician: ARA WRIGHT ([phone])[facility]ITALOct[facility] [place] (SWRLAB)[address] [place] [address] Lactate [Moles/Vol] 2.6 mmol/L High 0.7-2.0 [facility] Comment on above: Performed By: #### L [id number] ####Senior Telecommunications Technician: ARA WRIGHT ([phone])[facility]ITALOct[facility] [place] (RLAB)[address] [place] [address] LIPASEon 07-04-2024 Lipase [Catalytic activity/Vol] 133 U/L Normal 23-300 [facility] Comment on above: Performed By: #### L [id number], LAB99, KHS013, LAB17, AVE691, LAB46 ####Senior Telecommunications Technician: ARA WRIGHT ([phone])[facility]ITALOct[facility] CED[place] (RLAB)[address] [place] [address] Laboratory - Chemistry and C hemistry - challengeon 07-04-2024 Lactate [Moles/Vol] 0.6 mmol/L Low 0.7 - 2. 0 mmol/L [facility] Ammonia (P) [Moles/Vol] 17 umol/L 9 - 30 umol/L [facility] Magnesium [Mass/Vol] 1.5 mg/dL Low 1.6 - 2 .3 mg/dL [facility] Troponin I.cardiac [Mass/Vol] 0.026 ng/mL NINF - 0.034 ng/mL [facility] Beta hydroxybutyrate [Mass/Vol] 20.30 mg/dL High 0.20 - 2.81 mg/dL [facility] Lactate [Moles/Vol] 2.6 mmol/L High 0.7 - 2. 0 mmol/L [facility] Lipase [Catalytic activity/Vol] 133 U/L 23 - 300 U/L [facility] Laboratory - Chemistry and C hemistry - challengeOrdered By: Bhupinder Motta on 07-04-2024 Oxygen (Bld) [Partial pressure] 62 mm[Hg] mm(Hg) [facility] Laboratory - Coagulationon 0 07-04-2024 PT Coag (Bld) [Time] 12.4 s High 9.0 - 12.0 s [facility] Laboratory - Microbiology an d Antimicrobial susceptibilityon 07-04-2024 FLUAV RNA SHANE+probe Ql (Resp) Not detected Not Detected [facility] FLUBV RNA SHANE+probe Ql (Resp) Not detected Not Detected [facility] RSV RNA SHANE+probe Ql (Resp) Not detected Not Detected [facility] SARS-CoV-2 (COVID-19) RNA SHANE+probe Ql (Resp) Not detected Not Detected [facility] SARS-CoV-2 (COVID-19) RNA SHANE+probe Ql (Unsp spec) Methodology: real-time, RT-PCR The SARS-CoV-2, Flu A/B, and RSV Combo assay is intended for in vitro diagnostic use under the FDA Emergency Use Authorization (EUA). This test has not been FDA cleared or approved. In compliance with this authorization, please visit www.fda.gov/media/890447/ download or www.fda.gov/media/537592/ download to access the applicable information sheets. [facility] Lipase [Catalytic activity/V ol]on 07-04-2024 Interpretation and review of laboratory results Normal [facility] MAGNESIUMon 07-04-2024 Magnesium [Mass/Vol] 1.5 mg/dL Low 1.6-2.3 [facility] Comment on above: Performed By: #### L [id number], LAB99, CDT709, LAB17, NLA931, LAB46 ####Senior Telecommunications Technician: ARA WRIGTH ([phone])[facility]OSPITALMARILYN (SWRLAB)[address] [place] [address] [place] Magnesium [Mass/Vol]on 07-04 Interpretation and review of laboratory results Abnormal [facility] No Panel Informationon 07-04 Interpretation and review of laboratory results Abnormal [facility] Interpretation and review of laboratory results Normal [facility] Interpretation and review of laboratory results Abnormal [facility] Interpretation and review of laboratory results Abnormal [facility] Interpretation and review of laboratory results Abnormal [facility] Heart Rate 96 bpm [facility] P [place] 58 degrees [facility] [place] Interval 142 ms [facility] QRS [place] -58 degrees [facility] QRSD Interval 154 ms [facility] QT Interval 450 ms [facility] QTC Interval 570 ms [facility] T Wave [place] 10 degrees [facility] Sinus rhythm RBBB and LAFB Electronically Signed On 07-04-2024 17:44:57 EDT by Ashley Bell Ashley Hilliard MD - 07/04/2024 IMPRESSION: Sinus rhythm RBBB and LAFB Electronically Signed On 07-04-2024 17:44:57 EDT by Ashley Bell [facility] No Panel InformationOrdered By: Bhupinder Motta on 07-04-2024 BASE EXCESS -8.0 mmol/L Low -3.0 - 3.0 mmol/L [facility] pCO2 32 Low [facility] PROTHROMBIN TIMEon INR Coag (PPP) [Relative time] 1.1 {INR} Normal 0.9-1.1 [facility] Comment on above: Result Comment: Fantasma [...] Myocardial Infarction Performed By: #### L AB320 ####Senior Telecommunications Technician: ARA WRIGHT ([phone])[facility] HOSPITALDAKOTA SJTMAN (SWRLAB)[address] [place] [address] PT Coag (PPP) [Time] 12.4 s High 9.0-12.0 [facility] Comment on above: Performed By: #### L AB320 ####Senior Telecommunications Technician: ARA WRIGHT ([phone])[facility] SJTMAN (SWRLAB)[address] [place] [address] PT Coag (Bld) [Time]on 07-04 INR Coag (PPP) [Relative time] 1.1 {INR} 0.9 - 1.1 [facility] Comment on above: Recommended Anticoag ulant [...] (COVID-19) RNA SHANE+probe Ql (Unsp spec) Normal [facility] Comment on above: Performed By: #### L [id number] ####Senior Telecommunications Technician: ARA WRIGHT ([phone])[facility] DAKOTA SIMMONSAN (SWRLAB)[address] [place] [address] SARS-CoV-2, Flu A/B, and RSV Comboon 07-04-2024 Interpretation and review of laboratory results Normal [facility] TROPONIN Ion 07-04-2024 Troponin I.cardiac [Mass/Vol] 0.026 ng/mL Normal <0.034 [facility] Comment on above: Result Comment: CLAIRE Rivera COMMENTS:Patients with high levels of Biotin oral intake (ie >5 mg/day) may have falsely decreased Troponin levels. Performed By: #### L [id number], LAB99, JDM520, LAB17, LWL878, LAB46 ####Senior Telecommunications Technician: ARA WRIGHT ([phone])[facility]PITALMARILYN (RLAB)[address] [place] [address] Troponin I.cardiac [Mass/Vol ]on 07-04-2024 Interpretation and review of laboratory results Normal [facility] Patients with high l evels of Biotin oral intake (ie >5 mg/day) may have falsely decreased Troponin levels. [facility] Vital signsOrdered By: Bhupinder Motta on 07-04-2024 Oxygen saturation in Blood 90.0 % High 60.0 - 80.0 % [facility] XR Chest Single viewon 07-04 No acute cardiopulmonary disease. Report Dictated on Electronically Signed By: Marjan Ruth MD Electronically Signed Date/Time: 07/04/2024 6:00 PM EDT [facility] NI : 1960 [id number] Exam Date/Time: 07/04/2024 17:52 Procedure: XR CHEST [...] spine and shoulders. No acute osseous findings. [facility] Marjan Ruth MD - 07/04/2024 Patient Name: [...] Report Dictated on Electronically Signed By: Marjan Ruht MD Electronically Signed Date/Time: 07/04/2024 6:00 PM EDT [email or web address] Radiology Study observation (narrative) [employer] XR Chest Single viewOrdered By: Marjan Ruth on 07-04-2024 [employer] Work Phone: Basic Metabolic Profile (BMP )on 06-06-2024 BUN/CRE 11.8 RATIO Normal 10-20 [facility] Comment on above: Order Comment: 306.1 Performed By: #### L 500.2500, L100.0100, L501.5200 #### [facility] [address] [place], [address] [place] 8.9 mg/dL Normal 8.5-10.1 [facility] Comment on above: Order Comment: 306.1 Performed By: #### L 500.2500, L100.0100, L501.5200 #### [facility] [address] [place], [address] Chloride [Moles/Vol] 99 mmol/L Normal 98-107 [facility] Comment on above: Order Comment: 306.1 Performed By: #### L 500.2500, L100.0100, L501.5200 #### [facility] [address] [place], [address] CO2 [Moles/Vol] 27.0 mmol/L Normal 21.0-32.0 [facility] Comment on above: Order Comment: 306.1 Performed By: #### L 500.2500, L100.0100, L501.5200 #### [facility] [address] [place], [address] Creatinine [Mass/Vol] 1.02 mg/dL Normal 0.70-1.30 [facility] Comment on above: Order Comment: 306.1 Result Comment: The validity of the calculated GFR GFRAA in patients over 70 years has not been determined. Clinical correlation is essential. Performed By: #### L 500.2500, L100.0100, L501.5200 #### [facility] [address] [place], [address] EST GFR - AA 95 mL/min Normal >60 [facility] Comment on above: Order Comment: 306.1 Result Comment: Afri can Panamanian GFR Calc Performed By: #### L 500.2500, L100.0100, L501.5200 #### [facility] [address] [place], [address] GAP 6 Normal 5-15 [facility] Comment on above: Order Comment: 306.1 Performed By: #### L 500.2500, L100.0100, L501.5200 #### [facility] [address] [place], [address] GFR/1.73 sq M.predicted among non-blacks MDRD (S/P/Bld) [Vol rate/Area] 78 mL/min/{1.73_m2} Normal >60 [facility] Comment on above: Order Comment: 306.1 Result Comment: Non- GFR Calc Performed By: #### L 500.2500, L100.0100, L501.5200 #### [facility] [address] [place], [address] Glucose [Mass/Vol] 93 mg/dL Normal 74-106 [facility] Comment on above: Order Comment: 306.1 Performed By: #### L 500.2500, L100.0100, L501.5200 #### [facility] [address] [place], [address] Potassium [Moles/Vol] 3.9 mmol/L Normal 3.5-5.1 [facility] Comment on above: Order Comment: 306.1 Performed By: #### L 500.2500, L100.0100, L501.5200 #### [facility] [address] [place], [address] Sodium [Moles/Vol] 132 mmol/L Low 136-145 [facility] Comment on above: Order Comment: 306.1 Performed By: #### L 500.2500, L100.0100, L501.5200 #### [facility] [address] [place], [address] Urea nitrogen [Mass/Vol] 12 mg/dL Normal 7-18 [facility] Comment on above: Order Comment: 306.1 Performed By: #### L 500.2500, L100.0100, L501.5200 #### [facility] [address] [place], [address] CBC W/Diff, Automatedon 08 Absolute Lymph 1.55 X10 3/uL Normal 0.83-4.51 [facility] Comment on above: Order Comment: 306.1 Performed By: #### L 500.2500, L100.0100, L501.5200 #### [facility] [address] [place], [address] Absolute Neut 2.6 X10 3/uL Normal 2.0-7.7 [facility] Comment on above: Order Comment: 306.1 Performed By: #### L 500.2500, L100.0100, L501.5200 #### [facility] [address] [place], [address] Basophils/100 WBC (Bld) 1.5 % High 0-1 [facility] Comment on above: Order Comment: 306.1 Performed By: #### L 500.2500, L100.0100, L501.5200 #### [facility] [address] [place], [address] Eosinophils/100 WBC (Bld) 4.2 % Normal 0-5 [facility] Comment on above: Order Comment: 306.1 Performed By: #### L 500.2500, L100.0100, L501.5200 #### [facility] [address] [place], [address] Erythrocyte distribution width (RBC) [Ratio] 15.0 % High 11.6-14.6 [facility] Comment on above: Order Comment: 306.1 Performed By: #### L 500.2500, L100.0100, L501.5200 #### [facility] [address] [place], [address] Hematocrit (Bld) [Volume fraction] 31.4 % Low 40-54 [facility] Comment on above: Order Comment: 306.1 Performed By: #### L 500.2500, L100.0100, L501.5200 #### [facility] [address] [place], [address] Hemoglobin (Bld) [Mass/Vol] 10.2 g/dL Low 13.0-16.5 [facility] Comment on above: Order Comment: 306.1 Performed By: #### L 500.2500, L100.0100, L501.5200 #### [facility] [address] [place], [address] IG% 0.600 Normal 0.0-0.9 [facility] Comment on above: Order Comment: 306.1 Result Comment: IG% - Immature Granulocytes (promyelocytes, myelocytes and metamyelocytes) > 1% indicates that a LEFT SHIFT is Present. Performed By: #### L 500.2500, L100.0100, L501.5200 #### [facility] [address] [place], [address] Lymphocytes/100 WBC (Bld) 32.2 % Normal 19-41 [facility] Comment on above: Order Comment: 306.1 Performed By: #### L 500.2500, L100.0100, L501.5200 #### [facility] [address] [place], [address] MCH (RBC) [Entitic mass] 31.2 pg Normal 27.0-32.0 [facility] Comment on above: Order Comment: 306.1 Performed By: #### L 500.2500, L100.0100, L501.5200 #### [facility] [address] [place], [address] MCHC (RBC) [Mass/Vol] 32.5 g/dL Normal 32-36 [facility] Comment on above: Order Comment: 306.1 Performed By: #### L 500.2500, L100.0100, L501.5200 #### [facility] [address] [place], [address] MCV (RBC) [Entitic vol] 96.0 fL High 80-94 [facility] Comment on above: Order Comment: 306.1 Performed By: #### L 500.2500, L100.0100, L501.5200 #### [facility] [address] [place], [address] Monocytes/100 WBC (Bld) 7.9 % Normal 0-10 [facility] Comment on above: Order Comment: 306.1 Performed By: #### L 500.2500, L100.0100, L501.5200 #### [facility] [address] [place], [address] Neutrophils/100 WBC (Bld) 53.6 % Normal 47-70 [facility] Comment on above: Order Comment: 306.1 Performed By: #### L 500.2500, L100.0100, L501.5200 #### [facility] [address] [place], [address] Nucleated RBC (Bld) [#/Vol] 0 10*3/uL Normal 0-5 [facility] Comment on above: Order Comment: 306.1 Performed By: #### L 500.2500, L100.0100, L501.5200 #### [facility] [address] [place], [address] Platelet mean volume (Bld) [Entitic vol] 9.7 fL Normal 6.2-12.0 [facility] Comment on above: Order Comment: 306.1 Performed By: #### L 500.2500, L100.0100, L501.5200 #### [facility] [address] [place], [address] Platelets (Bld) [#/Vol] 242 10*3/uL Normal 150-450 [facility] Comment on above: Order Comment: 306.1 Performed By: #### L 500.2500, L100.0100, L501.5200 #### [facility] [address] [place], [address] RBC (Bld) [#/Vol] 3.27 10*6/uL Low 4.6-6.2 [facility] Comment on above: Order Comment: 306.1 Performed By: #### L 500.2500, L100.0100, L501.5200 #### [facility] [address] [place], [address] RDW SD 52.6 fl High 35.1-43.9 [facility] Comment on above: Order Comment: 306.1 Performed By: #### L 500.2500, L100.0100, L501.5200 #### [facility] [address] [place], [address] WBC (Bld) [#/Vol] 4.8 10*3/uL Normal 4.4-11.0 [facility] Comment on above: Order Comment: 306.1 Performed By: #### L 500.2500, L100.0100, L501.5200 #### [facility] [address] [place], [address] Magnesiumon 06-06-2024 Magnesium [Mass/Vol] 1.5 mg/dL Low 1.6-2.6 [facility] Comment on above: Order Comment: 306.1 Performed By: #### L 500.2500, L100.0100, L501.5200 #### [facility] [address] [place], [address] Basic Metabolic Profile (BMP )on 05-30-2024 BUN/CRE 12.1 RATIO Normal 10-20 [facility] Comment on above: Performed By: #### L 501.5300, L501.5200 #### [facility] [address] [place], [address] CA,Total 8.4 mg/dL Low 8.5-10.1 [facility] Comment on above: Performed By: #### L 501.5300, L501.5200 #### [facility] [address] [place], [address] Chloride [Moles/Vol] 98 mmol/L Normal 98-107 [facility] Comment on above: Performed By: #### L 501.5300, L501.5200 #### [facility] [address] [place], [address] CO2 [Moles/Vol] 24.0 mmol/L Normal 21.0-32.0 [facility] Comment on above: Performed By: #### L 501.5300, L501.5200 #### [facility] [address] [place], [address] Creatinine [Mass/Vol] 1.07 mg/dL Normal 0.70-1.30 [facility] Comment on above: Result Comment: The validity of the calculated GFR GFRAA in patients over 70 years has not been determined. Clinical correlation is essential. Performed By: #### L 501.5300, L501.5200 #### [facility] [address] [place], [address] EST GFR - AA 89 mL/min Normal >60 [facility] Comment on above: Result Comment: Afri can [place]ian GFR Calc Performed By: #### L 501.5300, L501.5200 #### [facility] [address] [place], [address] GAP 8 Normal 5-15 [facility] Comment on above: Performed By: #### L 501.5300, L501.5200 #### [facility] [address] [place], [address] GFR/1.73 sq M.predicted among non-blacks MDRD (S/P/Bld) [Vol rate/Area] 74 mL/min/{1.73_m2} Normal >60 [facility] Comment on above: Result Comment: Non- GFR Calc Performed By: #### L 501.5300, L501.5200 #### [facility] [address] [place], [address] Glucose [Mass/Vol] 119 mg/dL High 74-106 [facility] Comment on above: Result Comment: Fast ing Glucose result from 100 to 125 mg/dL suggests IMPAIRED HOMEOSTASIS per A.D.A. criteria. Performed By: #### L 501.5300, L501.5200 #### [facility] [address] [place], [address] Potassium [Moles/Vol] 3.9 mmol/L Normal 3.5-5.1 [facility] Comment on above: Performed By: #### L 501.5300, L501.5200 #### [facility] [address] [place], [address] Sodium [Moles/Vol] 130 mmol/L Low 136-145 [facility] Comment on above: Performed By: #### L 501.5300, L501.5200 #### [facility] [address] [place], [address] Urea nitrogen [Mass/Vol] 13 mg/dL Normal 7-18 [facility] Comment on above: Performed By: #### L 501.5300, L501.5200 #### [facility] [address] [place], [address] CBC W/Diff, Automatedon 05-19-2023 Absolute Lymph 1.36 X10 3/uL Normal 0.83-4.51 [facility] Comment on above: Performed By: #### L 501.5300, L501.5200 #### [facility] [address] [place], [address] Absolute Neut 1.6 X10 3/uL Low 2.0-7.7 [facility] Comment on above: Performed By: #### L 501.5300, L501.5200 #### [facility] [address] [place], [address] Basophils/100 WBC (Bld) 0.8 % Normal 0-1 [facility] Comment on above: Performed By: #### L 501.5300, L501.5200 #### [facility] [address] [place], [address] Eosinophils/100 WBC (Bld) 1.9 % Normal 0-5 [facility] Comment on above: Performed By: #### L 501.5300, L501.5200 #### [facility] [address] [place], [address] Erythrocyte distribution width (RBC) [Ratio] 15.3 % High 11.6-14.6 [facility] Comment on above: Performed By: #### L 501.5300, L501.5200 #### [facility] [address] [place], [address] Hematocrit (Bld) [Volume fraction] 28.3 % Low 40-54 [facility] Comment on above: Performed By: #### L 501.5300, L501.5200 #### [facility] [address] [place], [address] Hemoglobin (Bld) [Mass/Vol] 9.2 g/dL Low 13.0-16.5 [facility] Comment on above: Performed By: #### L 501.5300, L501.5200 #### [facility] [address] [place], [address] IG% 0.600 Normal 0.0-0.9 [facility] Comment on above: Result Comment: IG% - Immature Granulocytes (promyelocytes, myelocytes and metamyelocytes) > 1% indicates that a LEFT SHIFT is Present. Performed By: #### L 501.5300, L501.5200 #### [facility] [address] [place], [address] Lymphocytes/100 WBC (Bld) 37.8 % Normal 19-41 [facility] Comment on above: Performed By: #### L 501.5300, L501.5200 #### [facility] [address] [place], [address] MCH (RBC) [Entitic mass] 31.0 pg Normal 27.0-32.0 [facility] Comment on above: Performed By: #### L 501.5300, L501.5200 #### [facility] [address] [place], [address] MCHC (RBC) [Mass/Vol] 32.5 g/dL Normal 32-36 [facility] Comment on above: Performed By: #### L 501.5300, L501.5200 #### [facility] [address] [place], [address] MCV (RBC) [Entitic vol] 95.3 fL High 80-94 [facility] Comment on above: Performed By: #### L 501.5300, L501.5200 #### [facility] [address] [place], [address] Monocytes/100 WBC (Bld) 14.4 % High 0-10 [facility] Comment on above: Performed By: #### L 501.5300, L501.5200 #### [facility] [address] [place], [address] Neutrophils/100 WBC (Bld) 44.5 % Low 47-70 [facility] Comment on above: Performed By: #### L 501.5300, L501.5200 #### [facility] [address] [place], [address] Nucleated RBC (Bld) [#/Vol] 0 10*3/uL Normal 0-5 [facility] Comment on above: Performed By: #### L 501.5300, L501.5200 #### [facility] [address] [place], [address] Platelet mean volume (Bld) [Entitic vol] 10.0 fL Normal 6.2-12.0 [facility] Comment on above: Performed By: #### L 501.5300, L501.5200 #### [facility] [address] [place], [address] Platelets (Bld) [#/Vol] 125 10*3/uL Low 150-450 [facility] Comment on above: Performed By: #### L 501.5300, L501.5200 #### [facility] [address] [place], [address] RBC (Bld) [#/Vol] 2.97 10*6/uL Low 4.6-6.2 [facility] Comment on above: Performed By: #### L 501.5300, L501.5200 #### [facility] [address] [place], [address] RDW SD 53.9 fl High 35.1-43.9 [facility] Comment on above: Performed By: #### L 501.5300, L501.5200 #### [facility] [address] [place], [address] WBC (Bld) [#/Vol] 3.6 10*3/uL Low 4.4-11.0 [facility] Comment on above: Performed By: #### L 501.5300, L501.5200 #### [facility] [address] [place], [address] Magnesiumon 05-30-2024 Magnesium [Mass/Vol] 1.2 mg/dL Low 1.6-2.6 [facility] Comment on above: Performed By: #### L 501.5300, L501.5200 #### [facility] [address] [place], [address] Basic Metabolic Profile (BMP )on 05-27-2024 BUN/CRE 7.5 RATIO Low 10-20 [facility] Comment on above: Order Comment: 306-1 Performed By: #### L 505.5000, L501.9100, L500.4050, L100.0100, L300.3900 #### [facility] [address] [place], [address] CA,Total 8.5 mg/dL Normal 8.5-10.1 [facility] Comment on above: Order Comment: 306-1 Performed By: #### L 505.5000, L501.9100, L500.4050, L100.0100, L300.3900 #### [facility] [address] [place], [address] Chloride [Moles/Vol] 95 mmol/L Low 98-107 [facility] Comment on above: Order Comment: 306-1 Performed By: #### L 505.5000, L501.9100, L500.4050, L100.0100, L300.3900 #### [facility] [address] [place], [address] CO2 [Moles/Vol] 27.0 mmol/L Normal 21.0-32.0 [facility] Comment on above: Order Comment: 306- Performed By: #### L 505.5000, L501.9100, L500.4050, L100.0100, L300.3900 #### [facility] [address] [place], [address] Creatinine [Mass/Vol] 1.33 mg/dL High 0.70-1.30 [facility] Comment on above: Order Comment: 306- Result Comment: The validity of the calculated GFR GFRAA in patients over 70 years has not been determined. Clinical correlation is essential. Performed By: #### L 505.5000, L501.9100, L500.4050, L100.0100, L300.3900 #### [facility] [address] [place], [address] EST GFR - AA 70 mL/min Normal >60 [facility] Comment on above: Order Comment: 306- Result Comment: Afri can Pan[place]ian GFR Calc Performed By: #### L 505.5000, L501.9100, L500.4050, L100.0100, L300.3900 #### [facility] [address] [place], [address] GAP 8 Normal 5-15 [facility] Comment on above: Order Comment: 306- Performed By: #### L 505.5000, L501.9100, L500.4050, L100.0100, L300.3900 #### [facility] [address] [place], [address] GFR/1.73 sq M.predicted among non-blacks MDRD (S/P/Bld) [Vol rate/Area] 58 mL/min/{1.73_m2} Low >60 [facility] Comment on above: Order Comment: 306-1 Result Comment: Non- GFR Calc Performed By: #### L 505.5000, L501.9100, L500.4050, L100.0100, L300.3900 #### [facility] [address] [place], [address] Glucose [Mass/Vol] 85 mg/dL Normal 74-106 [facility] Comment on above: Order Comment: 306-1 Performed By: #### L 505.5000, L501.9100, L500.4050, L100.0100, L300.3900 #### [facility] [address] [place], [address] Potassium [Moles/Vol] 3.9 mmol/L Normal 3.5-5.1 [facility] Comment on above: Order Comment: 306-1 Performed By: #### L 505.5000, L501.9100, L500.4050, L100.0100, L300.3900 #### [facility] [address] [place], [address] Sodium [Moles/Vol] 130 mmol/L Low 136-145 [facility] Comment on above: Order Comment: 306-1 Performed By: #### L 505.5000, L501.9100, L500.4050, L100.0100, L300.3900 #### [facility] [address] [place], [address] Urea nitrogen [Mass/Vol] 10 mg/dL Normal 7-18 [facility] Comment on above: Order Comment: 306-1 Performed By: #### L 505.5000, L501.9100, L500.4050, L100.0100, L300.3900 #### [facility] [address] [place], [address] CBC W/Diff, Automatedon 08-0 9-2024 Absolute Lymph 1.55 X10 3/uL Normal 0.83-4.51 [facility] Comment on above: Order Comment: 306-1 Performed By: #### L 505.5000, L501.9100, L500.4050, L100.0100, L300.3900 #### [facility] [address] [place], [address] Absolute Neut 1.8 X10 3/uL Low 2.0-7.7 [facility] Comment on above: Order Comment: 306-1 Performed By: #### L 505.5000, L501.9100, L500.4050, L100.0100, L300.3900 #### [facility] [address] [place], [address] Basophils/100 WBC (Bld) 0.7 % Normal 0-1 [facility] Comment on above: Order Comment: 306-1 Performed By: #### L 505.5000, L501.9100, L500.4050, L100.0100, L300.3900 #### [facility] [address] [place], [address] Eosinophils/100 WBC (Bld) 2.9 % Normal 0-5 [facility] Comment on above: Order Comment: 306-1 Performed By: #### L 505.5000, L501.9100, L500.4050, L100.0100, L300.3900 #### [facility] [address] [place], [address] Erythrocyte distribution width (RBC) [Ratio] 15.0 % High 11.6-14.6 [facility] Comment on above: Order Comment: 306-1 Performed By: #### L 505.5000, L501.9100, L500.4050, L100.0100, L300.3900 #### [facility] [address] [place], [address] Hematocrit (Bld) [Volume fraction] 28.8 % Low 40-54 [facility] Comment on above: Order Comment: 306-1 Performed By: #### L 505.5000, L501.9100, L500.4050, L100.0100, L300.3900 #### [facility] [address], [address] Hemoglobin (Bld) [Mass/Vol] 9.6 g/dL Low 13.0-16.5 [facility] Comment on above: Order Comment: 306-1 Performed By: #### L 505.5000, L501.9100, L500.4050, L100.0100, L300.3900 #### [facility] [address], [address] IG% 0.700 Normal 0.0-0.9 [facility] Comment on above: Order Comment: 306-1 Result Comment: IG% - Immature Granulocytes (promyelocytes, myelocytes and metamyelocytes) > 1% indicates that a LEFT SHIFT is Present. Performed By: #### L 505.5000, L501.9100, L500.4050, L100.0100, L300.3900 #### [facility] [address] [place], [address] Lymphocytes/100 WBC (Bld) 37.8 % Normal 19-41 [facility] Comment on above: Order Comment: 306-1 Performed By: #### L 505.5000, L501.9100, L500.4050, L100.0100, L300.3900 #### [facility] [address] [place], [address] MCH (RBC) [Entitic mass] 31.1 pg Normal 27.0-32.0 [facility] Comment on above: Order Comment: 306-1 Performed By: #### L 505.5000, L501.9100, L500.4050, L100.0100, L300.3900 #### [facility] [address] [place], [address] MCHC (RBC) [Mass/Vol] 33.3 g/dL Normal 32-36 [facility] Comment on above: Order Comment: 306-1 Performed By: #### L 505.5000, L501.9100, L500.4050, L100.0100, L300.3900 #### [facility] [address] [place], [address] MCV (RBC) [Entitic vol] 93.2 fL Normal 80-94 [facility] Comment on above: Order Comment: 306-1 Performed By: #### L 505.5000, L501.9100, L500.4050, L100.0100, L300.3900 #### [facility] [address] [place], [address] Monocytes/100 WBC (Bld) 15.1 % High 0-10 [facility] Comment on above: Order Comment: 306-1 Performed By: #### L 505.5000, L501.9100, L500.4050, L100.0100, L300.3900 #### [facility] [address] [place], [address] Neutrophils/100 WBC (Bld) 42.8 % Low 47-70 [facility] Comment on above: Order Comment: 306-1 Performed By: #### L 505.5000, L501.9100, L500.4050, L100.0100, L300.3900 #### [facility] [address] [place], [address] Nucleated RBC (Bld) [#/Vol] 0 10*3/uL Normal 0-5 [facility] Comment on above: Order Comment: 306-1 Performed By: #### L 505.5000, L501.9100, L500.4050, L100.0100, L300.3900 #### [facility] [address] [place], [address] Platelet mean volume (Bld) [Entitic vol] 10.7 fL Normal 6.2-12.0 [facility] Comment on above: Order Comment: 306-1 Performed By: #### L 505.5000, L501.9100, L500.4050, L100.0100, L300.3900 #### [facility] [address] [place], [address] Platelets (Bld) [#/Vol] 69 10*3/uL Low 150-450 [facility] Comment on above: Order Comment: 306-1 Performed By: #### L 505.5000, L501.9100, L500.4050, L100.0100, L300.3900 #### [facility] [address] [place], [address] RBC (Bld) [#/Vol] 3.09 10*6/uL Low 4.6-6.2 [facility] Comment on above: Order Comment: 306-1 Performed By: #### L 505.5000, L501.9100, L500.4050, L100.0100, L300.3900 #### [facility] [address] [place], [address] RDW SD 51.8 fl High 35.1-43.9 [facility] Comment on above: Order Comment: 306-1 Performed By: #### L 505.5000, L501.9100, L500.4050, L100.0100, L300.3900 #### [facility] [address] [place], [address] WBC (Bld) [#/Vol] 4.1 10*3/uL Low 4.4-11.0 [facility] Comment on above: Order Comment: 306-1 Performed By: #### L 505.5000, L501.9100, L500.4050, L100.0100, L300.3900 #### [facility] [address] [place], [place], [address] Magnesiumon 05-27-2024 Magnesium [Mass/Vol] 0.8 mg/dL Invalid Interpretation Code 1.6-2.6 [facility] Comment on above: Order Comment: 306 Result Comment: Crit ical Result(s) Called at: 08:22:29 05/27/2024 by: JONNY Moraes. Results read back by same. Performed By: #### L 505.5000, L501.9100, L500.4050, L100.0100, L300.3900 #### [facility] [address] [place], [address] Thyroid Stim Hormone (TSH)on 05-27-2024 TSH 6.41 uIU/mL High 0.358-3.74 [facility] Comment on above: Order Comment: Performed By: #### L 505.5000, L501.9100, L500.4050, L100.0100, L300.3900 #### [facility] [address] [place], [address] Vitamin B12on 05-27-2024 Cobalamin (Vitamin B12) [Mass/Vol] 737 pg/mL Normal 211-911 [facility] Comment on above: Order Comment: Performed By: #### L 505.5000, L501.9100, L500.4050, L100.0100, L300.3900 #### [facility] [address] [place], [address] Vitamin D,25 Hydroxyon 05-27 Vitamin D 25-OH 64.3 ng/mL Normal [facility] Comment on above: Order Comment: Result Comment: Celine min D 25(OH) Status Range Deficiency <20 ng/mL (50nmol/L) Insufficiency 20 - 30 ng/mL (50 - 75 nmol/L) Sufficiency 30 - 100 ng/mL (75 - 250 nmol/L) Toxicity >100 ng/mL (>250 nmol/L) Performed By: #### L 505.5000, L501.9100, L500.4050, L100.0100, L300.3900 #### [facility] [address] [place], [address] Renal Profileon 05-26-2024 Albumin [Mass/Vol] 2.6 g/dL Low 3.2-5.0 [facility] Comment on above: Performed By: #### L 505.5000, L501.9100, L500.4050, L100.0100, L300.3900 #### [facility] [address] [place], [address] BUN/CRE 6.3 RATIO Low 10-20 [facility] Comment on above: Performed By: #### L 505.5000, L501.9100, L500.4050, L100.0100, L300.3900 #### [facility] [address] [place], [address] CA,Total 8.4 mg/dL Low 8.5-10.1 [facility] Comment on above: Performed By: #### L 505.5000, L501.9100, L500.4050, L100.0100, L300.3900 #### [facility] [address] [place], [address] Chloride [Moles/Vol] 100 mmol/L Normal 98-107 [facility] Comment on above: Performed By: #### L 505.5000, L501.9100, L500.4050, L100.0100, L300.3900 #### [facility] [address] [place], [address] CO2 [Moles/Vol] 26.0 mmol/L Normal 21.0-32.0 [facility] Comment on above: Performed By: #### L 505.5000, L501.9100, L500.4050, L100.0100, L300.3900 #### [facility] [address] [place], [address] Creatinine [Mass/Vol] 1.11 mg/dL Normal 0.70-1.30 [facility] Comment on above: Result Comment: The validity of the calculated GFR GFRAA in patients over 70 years has not been determined. Clinical correlation is essential. Performed By: #### L 505.5000, L501.9100, L500.4050, L100.0100, L300.3900 #### [facility] [address] [place], [address] ECRCL 67.90 ml/min Normal [facility] Comment on above: Performed By: #### L 505.5000, L501.9100, L500.4050, L100.0100, L300.3900 #### [facility] [address] [place], [address] EST GFR - AA 86 mL/min Normal >60 [facility] Comment on above: Result Comment: Afri can Panamanian GFR Calc Performed By: #### L 505.5000, L501.9100, L500.4050, L100.0100, L300.3900 #### [facility] [address] [place], [address] GFR/1.73 sq M.predicted among non-blacks MDRD (S/P/Bld) [Vol rate/Area] 71 mL/min/{1.73_m2} Normal >60 [facility] Comment on above: Result Comment: Non- GFR Calc Performed By: #### L 505.5000, L501.9100, L500.4050, L100.0100, L300.3900 #### [facility] [address] [place], [address] Glucose [Mass/Vol] 92 mg/dL Normal 74-106 [facility] Comment on above: Performed By: #### L 505.5000, L501.9100, L500.4050, L100.0100, L300.3900 #### [facility] [address] [place], [address] Phosphate [Mass/Vol] 3.6 mg/dL Normal 2.5-4.9 [facility] Comment on above: Performed By: #### L 505.5000, L501.9100, L500.4050, L100.0100, L300.3900 #### [facility] [address] [place], [address] Potassium [Moles/Vol] 4.1 mmol/L Normal 3.5-5.1 [facility] Comment on above: Performed By: #### L 505.5000, L501.9100, L500.4050, L100.0100, L300.3900 #### [facility] [address] [place], [address] Sodium [Moles/Vol] 132 mmol/L Low 136-145 [facility] Comment on above: Performed By: #### L 505.5000, L501.9100, L500.4050, L100.0100, L300.3900 #### [facility] [address] [place], [address] Urea nitrogen [Mass/Vol] 7 mg/dL Normal 7-18 [facility] Comment on above: Performed By: #### L 505.5000, L501.9100, L500.4050, L100.0100, L300.3900 #### [facility] [address] [place], [address] Renal Profileon 05-25-2024 Albumin [Mass/Vol] 3.2 g/dL Normal 3.2-5.0 [facility] Comment on above: Performed By: #### L 505.5000, L501.9100, L500.4050, L100.0100, L300.3900 #### [facility] [address] [place], [address] BUN/CRE 6.6 RATIO Low 10-20 [facility] Comment on above: Performed By: #### L 505.5000, L501.9100, L500.4050, L100.0100, L300.3900 #### [facility] [address] [place], [address] CA,Total 8.8 mg/dL Normal 8.5-10.1 [facility] Comment on above: Performed By: #### L 505.5000, L501.9100, L500.4050, L100.0100, L300.3900 #### [facility] [address] [place], [address] Chloride [Moles/Vol] 97 mmol/L Low 98-107 [facility] Comment on above: Performed By: #### L 505.5000, L501.9100, L500.4050, L100.0100, L300.3900 #### [facility] [address] [place], [address] CO2 [Moles/Vol] 22.0 mmol/L Normal 21.0-32.0 [facility] Comment on above: Performed By: #### L 505.5000, L501.9100, L500.4050, L100.0100, L300.3900 #### [facility] [address] [place], [address] Creatinine [Mass/Vol] 1.06 mg/dL Normal 0.70-1.30 [facility] Comment on above: Result Comment: The validity of the calculated GFR GFRAA in patients over 70 years has not been determined. Clinical correlation is essential. Performed By: #### L 505.5000, L501.9100, L500.4050, L100.0100, L300.3900 #### [facility] [address] [place], [address] ECRCL 71.10 ml/min Normal [facility] Comment on above: Performed By: #### L 505.5000, L501.9100, L500.4050, L100.0100, L300.3900 #### [facility] [address] [place], [address] EST GFR - AA 90 mL/min Normal >60 [facility] Comment on above: Result Comment: Afri can Panamanian GFR Calc Performed By: #### L 505.5000, L501.9100, L500.4050, L100.0100, L300.3900 #### [facility] [address] [place], [address] GFR/1.73 sq M.predicted among non-blacks MDRD (S/P/Bld) [Vol rate/Area] 75 mL/min/{1.73_m2} Normal >60 [facility] Comment on above: Result Comment: Non- GFR Calc Performed By: #### L 505.5000, L501.9100, L500.4050, L100.0100, L300.3900 #### [facility] [address] [place], [address] Glucose [Mass/Vol] 147 mg/dL High 74-106 [facility] Comment on above: Result Comment: Fast ing Glucose result greater than or equal to 126 mg/dL suggests DIABETES MELLITUS per A.D.A. criteria. Performed By: #### L 505.5000, L501.9100, L500.4050, L100.0100, L300.3900 #### [facility] [address] [place], [address] Phosphate [Mass/Vol] 2.6 mg/dL Normal 2.5-4.9 [facility] Comment on above: Performed By: #### L 505.5000, L501.9100, L500.4050, L100.0100, L300.3900 #### [facility] [address] [place], [address] Potassium [Moles/Vol] 3.6 mmol/L Normal 3.5-5.1 [facility] Comment on above: Performed By: #### L 505.5000, L501.9100, L500.4050, L100.0100, L300.3900 #### [facility] [address] [place], [address] Sodium [Moles/Vol] 130 mmol/L Low 136-145 [facility] Comment on above: Performed By: #### L 505.5000, L501.9100, L500.4050, L100.0100, L300.3900 #### [facility] [address] [place], [address] Urea nitrogen [Mass/Vol] 7 mg/dL Normal 7-18 [facility] Comment on above: Performed By: #### L 505.5000, L501.9100, L500.4050, L100.0100, L300.3900 #### [facility] [address] [place], [address] Bedside Glucoseon 05-24-2024 FINGERSTICK GLU 148 mg/dL High 74-106 [facility] Comment on above: Result Comment: CORINNE GEMENT OF PATIENT CARE PER NURSING PROTOCOL Performed By: #### L 505.5000, L501.9100, L500.4050, L100.0100, L300.3900 #### [facility] [address] [place], [address] FINGERSTICK GLU 102 mg/dL Normal 74-106 [facility] Comment on above: Result Comment: CORINNE GEMENT OF PATIENT CARE PER NURSING PROTOCOL Performed By: #### L 505.5000, L501.9100, L500.4050, L100.0100, L300.3900 #### [facility] [address] [place], [address] CBC-Complete Blood Cnt No Di ffon 05-24-2024 PATH REV Reviewed Normal [facility] Comment on above: Result Comment: Panc ytopenia. Leukopenia and neutropenia. Normocytic anemia. MARKED Thrombocytopenia. Clinical correlation necessary. Sundar Lei M.D. 05/24/24 AMENDED REPORT 05/24/24 1453 PATH REV previously reported as: February Performed By: #### L 501.5300, L501.5200 #### [facility] [address] [place], [address] Renal Profileon 05-24-2024 Albumin [Mass/Vol] 2.9 g/dL Low 3.2-5.0 [facility] Comment on above: Performed By: #### L 505.5000, L501.9100, L500.4050, L100.0100, L300.3900 #### [facility] [address] [place], [address] BUN/CRE 7.4 RATIO Low 10-20 [facility] Comment on above: Performed By: #### L 505.5000, L501.9100, L500.4050, L100.0100, L300.3900 #### [facility] [address] [place], [address] CA,Total 8.5 mg/dL Normal 8.5-10.1 [facility] Comment on above: Performed By: #### L 505.5000, L501.9100, L500.4050, L100.0100, L300.3900 #### [facility] [address] [place], [address] Chloride [Moles/Vol] 103 mmol/L Normal 98-107 [facility] Comment on above: Performed By: #### L 505.5000, L501.9100, L500.4050, L100.0100, L300.3900 #### [facility] [address] [place], [address] CO2 [Moles/Vol] 26.0 mmol/L Normal 21.0-32.0 [facility] Comment on above: Performed By: #### L 505.5000, L501.9100, L500.4050, L100.0100, L300.3900 #### [facility] [address] [place], [address] Creatinine [Mass/Vol] 0.95 mg/dL Normal 0.70-1.30 [facility] Comment on above: Result Comment: The validity of the calculated GFR GFRAA in patients over 70 years has not been determined. Clinical correlation is essential. Performed By: #### L 505.5000, L501.9100, L500.4050, L100.0100, L300.3900 #### [facility] [address] [place], [address] ECRCL 79.33 ml/min Normal [facility] Comment on above: Performed By: #### L 505.5000, L501.9100, L500.4050, L100.0100, L300.3900 #### [facility] [address] [place], [address] EST GFR - AA 103 mL/min Normal >60 [facility] Comment on above: Result Comment: Afri can Panamanian GFR Calc Performed By: #### L 505.5000, L501.9100, L500.4050, L100.0100, L300.3900 #### [facility] [address] [place], [address] GFR/1.73 sq M.predicted among non-blacks MDRD (S/P/Bld) [Vol rate/Area] 85 mL/min/{1.73_m2} Normal >60 [facility] Comment on above: Result Comment: Non- GFR Calc Performed By: #### L 505.5000, L501.9100, L500.4050, L100.0100, L300.3900 #### [facility] [address] [place], [address] Glucose [Mass/Vol] 108 mg/dL High 74-106 [facility] Comment on above: Result Comment: Fast ing Glucose result from 100 to 125 mg/dL suggests IMPAIRED HOMEOSTASIS per A.D.A. criteria. Performed By: #### L 505.5000, L501.9100, L500.4050, L100.0100, L300.3900 #### [facility] [address] [place], [address] Phosphate [Mass/Vol] 1.0 mg/dL Invalid Interpretation Code 2.5-4.9 [facility] Comment on above: Result Comment: Crit ical Result(s) Called at: 07:38:55 05/24/2024 by: JONNY SLAUGHTER to Aminta Alas. Results read back by same. Performed By: #### L 505.5000, L501.9100, L500.4050, L100.0100, L300.3900 #### [facility] [address] [place], [address] Potassium [Moles/Vol] 3.9 mmol/L Normal 3.5-5.1 [facility] Comment on above: Performed By: #### L 505.5000, L501.9100, L500.4050, L100.0100, L300.3900 #### [facility] [address] [place], [address] Sodium [Moles/Vol] 135 mmol/L Low 136-145 [facility] Comment on above: Performed By: #### L 505.5000, L501.9100, L500.4050, L100.0100, L300.3900 #### [facility] [address] [place], [address] Urea nitrogen [Mass/Vol] 7 mg/dL Normal 7-18 [facility] Comment on above: Performed By: #### L 505.5000, L501.9100, L500.4050, L100.0100, L300.3900 #### [facility] [address] [place], [address] Basic Metabolic Profile (BMP )on 05-23-2024 BUN/CRE 8.4 RATIO Low 10-20 [facility] Comment on above: Performed By: #### L 505.5000, L501.9100, L500.4050, L100.0100, L300.3900 #### [facility] [address] [place], [address] CA,Total 8.2 mg/dL Low 8.5-10.1 [facility] Comment on above: Performed By: #### L 505.5000, L501.9100, L500.4050, L100.0100, L300.3900 #### [facility] [address] [place], [address] Chloride [Moles/Vol] 103 mmol/L Normal 98-107 [facility] Comment on above: Performed By: #### L 505.5000, L501.9100, L500.4050, L100.0100, L300.3900 #### [facility] [address] [place], [address] CO2 [Moles/Vol] 26.0 mmol/L Normal 21.0-32.0 [facility] Comment on above: Performed By: #### L 505.5000, L501.9100, L500.4050, L100.0100, L300.3900 #### [facility] [address] [place], [address] Creatinine [Mass/Vol] 0.95 mg/dL Normal 0.70-1.30 [facility] Comment on above: Result Comment: The validity of the calculated GFR GFRAA in patients over 70 years has not been determined. Clinical correlation is essential. Performed By: #### L 505.5000, L501.9100, L500.4050, L100.0100, L300.3900 #### [facility] [address] [place], [address] ECRCL 79.33 ml/min Normal [facility] Comment on above: Performed By: #### L 505.5000, L501.9100, L500.4050, L100.0100, L300.3900 #### [facility] [address] [place], [address] EST GFR - AA 102 mL/min Normal >60 [facility] Comment on above: Result Comment: Afri can Panamanian GFR Calc Performed By: #### L 505.5000, L501.9100, L500.4050, L100.0100, L300.3900 #### [facility] [address] [place], [address] GAP 7 Normal 5-15 [facility] Comment on above: Performed By: #### L 505.5000, L501.9100, L500.4050, L100.0100, L300.3900 #### [facility] [address] [place], [address] GFR/1.73 sq M.predicted among non-blacks MDRD (S/P/Bld) [Vol rate/Area] 85 mL/min/{1.73_m2} Normal >60 [facility] Comment on above: Result Comment: Non- GFR Calc Performed By: #### L 505.5000, L501.9100, L500.4050, L100.0100, L300.3900 #### [facility] [address] [place], [address] Glucose [Mass/Vol] 124 mg/dL High 74-106 [facility] Comment on above: Result Comment: Fast ing Glucose result from 100 to 125 mg/dL suggests IMPAIRED HOMEOSTASIS per A.D.A. criteria. Performed By: #### L 505.5000, L501.9100, L500.4050, L100.0100, L300.3900 #### [facility] [address] [place], [address] Potassium [Moles/Vol] 3.7 mmol/L Normal 3.5-5.1 [facility] Comment on above: Performed By: #### L 505.5000, L501.9100, L500.4050, L100.0100, L300.3900 #### [facility] [address] [place], [address] Sodium [Moles/Vol] 136 mmol/L Normal 136-145 [facility] Comment on above: Performed By: #### L 505.5000, L501.9100, L500.4050, L100.0100, L300.3900 #### [facility] [address] [place], [address] Urea nitrogen [Mass/Vol] 8 mg/dL Normal 7-18 [facility] Comment on above: Performed By: #### L 505.5000, L501.9100, L500.4050, L100.0100, L300.3900 #### [facility] [address] [place], [address] Bedside Glucoseon 05-23-2024 FINGERSTICK GLU 143 mg/dL High 74-106 [facility] Comment on above: Result Comment: CORINNE GEMENT OF PATIENT CARE PER NURSING PROTOCOL Performed By: #### L 505.5000, L501.9100, L500.4050, L100.0100, L300.3900 #### [facility] [address] [place], [address] FINGERSTICK GLU 115 mg/dL High 74-106 [facility] Comment on above: Result Comment: CORINNE GEMENT OF PATIENT CARE PER NURSING PROTOCOL Performed By: #### L 505.5000, L501.9100, L500.4050, L100.0100, L300.3900 #### [facility] [address] [place], [address] FINGERSTICK GLU 139 mg/dL High 74-106 [facility] Comment on above: Result Comment: CORINNE LONDONO OF PATIENT CARE PER NURSING PROTOCOL Performed By: #### L 505.5000, L501.9100, L500.4050, L100.0100, L300.3900 #### [facility] [address] [place], [address] CBC W/Diff, Automatedon 08-0 PATH REV Reviewed Normal [facility] Comment on above: Order Comment: CRITI JAMES VALUE VERIFIED. CALLED TO DEMETRIUS GRIFFITH05/22/24 Huma3 Jonh Powers.RESULTS READ BACK BY SAME. Result Comment: Panc ytopenia. Leukopenia and neutropenia. Normocytic anemia. MARKED Thrombocytopenia. Clinical correlation necessary. Sundar Lei M.D. 05/23/24 AMENDED REPORT 05/23/24 1332 PATH REV previously reported as: February kathleen Performed By: #### L 505.5000, L501.9100, L500.4050, L100.0100, L300.3900 #### [facility] [address] [place], [address] Differential Commenton 05-23 SMEAR COMMENT SCANNED Normal [facility] Comment on above: Result Comment: JÚNIOR ED THROMBOCYTOPENIA Performed By: #### L 501.5300, L501.5200 #### [facility] [address] [place], [address] Magnesiumon 05-23-2024 Magnesium [Mass/Vol] 2.2 mg/dL Normal 1.6-2.6 [facility] Comment on above: Performed By: #### L 505.5000, L501.9100, L500.4050, L100.0100, L300.3900 #### [facility] [address] [place], [address] Phosphoruson 05-23-2024 Phosphate [Mass/Vol] 1.3 mg/dL Low 2.5-4.9 [facility] Comment on above: Performed By: #### L 505.5000, L501.9100, L500.4050, L100.0100, L300.3900 #### [facility] [address] [place], [address] Bedside Glucoseon 05-22-2024 FINGERSTICK GLU 105 mg/dL Normal 74-106 [facility] Comment on above: Result Comment: CORINNE GEMENT OF PATIENT CARE PER NURSING PROTOCOL Performed By: #### L 505.5000, L501.9100, L500.4050, L100.0100, L300.3900 #### [facility] [address] [place], [address] FINGERSTICK GLU 52 mg/dL Low 74-106 [facility] Comment on above: Result Comment: CORINNE GEMENT OF PATIENT CARE PER NURSING PROTOCOL Performed By: #### L 501.5300, L501.5200 #### [facility] [address] [place], [address] FINGERSTICK GLU 92 mg/dL Normal 74-106 [facility] Comment on above: Result Comment: CORINNE GEMENT OF PATIENT CARE PER NURSING PROTOCOL Performed By: #### L 505.5000, L501.9100, L500.4050, L100.0100, L300.3900 #### [facility] [address] [place], [address] FINGERSTICK GLU 98 mg/dL Normal 74-106 [facility] Comment on above: Result Comment: CORINNE GEMENT OF PATIENT CARE PER NURSING PROTOCOL Performed By: #### L 505.5000, L501.9100, L500.4050, L100.0100, L300.3900 #### [facility] [address] [place], [address] FINGERSTICK GLU 69 mg/dL Low 74-106 [facility] Comment on above: Result Comment: CORINNE GEMENT OF PATIENT CARE PER NURSING PROTOCOL Performed By: #### L 505.5000, L501.9100, L500.4050, L100.0100, L300.3900 #### [facility] [address] [place], [address] Comprehensive Metabolic Prof ilon 05-22-2024 Albumin [Mass/Vol] 3.2 g/dL Normal 3.2-5.0 [facility] Comment on above: Performed By: #### L 505.5000, L501.9100, L500.4050, L100.0100, L300.3900 #### [facility] [address] [place], [address] Albumin/Globulin [Mass ratio] 1.0 {ratio} Normal 0.9-2.4 [facility] Comment on above: Performed By: #### L 505.5000, L501.9100, L500.4050, L100.0100, L300.3900 #### [facility] [address] [place], [address] ALK P 87 U/L Normal 45-117 [facility] Comment on above: Performed By: #### L 505.5000, L501.9100, L500.4050, L100.0100, L300.3900 #### [facility] [address] [place], [address] ALT [Catalytic activity/Vol] 76 U/L High 16-61 [facility] Comment on above: Performed By: #### L 505.5000, L501.9100, L500.4050, L100.0100, L300.3900 #### [facility] [address] [place], [address] AST [Catalytic activity/Vol] 168 U/L High 15-37 [facility] Comment on above: Performed By: #### L 505.5000, L501.9100, L500.4050, L100.0100, L300.3900 #### [facility] [address] [place], [address] Bilirubin [Mass/Vol] 1.00 mg/dL Normal 0.20-1.00 [facility] Comment on above: Result Comment: For patients on eltrombopag therapy, use of Dimension [place] TBIL is not recommended. Performed By: #### L 505.5000, L501.9100, L500.4050, L100.0100, L300.3900 #### [facility] [address] [place], [address] BUN/CRE 8.7 RATIO Low 10-20 [facility] Comment on above: Performed By: #### L 505.5000, L501.9100, L500.4050, L100.0100, L300.3900 #### [facility] [address] [place], [address] CA,Total 7.9 mg/dL Low 8.5-10.1 [facility] Comment on above: Performed By: #### L 505.5000, L501.9100, L500.4050, L100.0100, L300.3900 #### [facility] [address] [place], [address] Chloride [Moles/Vol] 101 mmol/L Normal 98-107 [facility] Comment on above: Performed By: #### L 505.5000, L501.9100, L500.4050, L100.0100, L300.3900 #### [facility] [address] [place], [address] CO2 [Moles/Vol] 18.0 mmol/L Low 21.0-32.0 [facility] Comment on above: Performed By: #### L 505.5000, L501.9100, L500.4050, L100.0100, L300.3900 #### [facility] [address] [place], [address] Creatinine [Mass/Vol] 1.04 mg/dL Normal 0.70-1.30 [facility] Comment on above: Result Comment: The validity of the calculated GFR GFRAA in patients over 70 years has not been determined. Clinical correlation is essential. Performed By: #### L 505.5000, L501.9100, L500.4050, L100.0100, L300.3900 #### [facility] [address] [place], [address] ECRCL 72.47 ml/min Normal [facility] Comment on above: Performed By: #### L 505.5000, L501.9100, L500.4050, L100.0100, L300.3900 #### [facility] [address] [place], [address] EST GFR - AA 92 mL/min Normal >60 [facility] Comment on above: Result Comment: Afri can Panamanian GFR Calc Performed By: #### L 505.5000, L501.9100, L500.4050, L100.0100, L300.3900 #### [facility] [address] [place], [address] GAP 14 Normal 5-15 [facility] Comment on above: Performed By: #### L 505.5000, L501.9100, L500.4050, L100.0100, L300.3900 #### [facility] [address] [place], [address] GFR/1.73 sq M.predicted among non-blacks MDRD (S/P/Bld) [Vol rate/Area] 76 mL/min/{1.73_m2} Normal >60 [facility] Comment on above: Result Comment: Non- GFR Calc Performed By: #### L 505.5000, L501.9100, L500.4050, L100.0100, L300.3900 #### [facility] [address] [place], [address] Globulin (S) [Mass/Vol] 3.1 g/dL Normal 2.2-4.2 [facility] Comment on above: Performed By: #### L 505.5000, L501.9100, L500.4050, L100.0100, L300.3900 #### [facility] [address] [place], [address] Glucose [Mass/Vol] 91 mg/dL Normal 74-106 [facility] Comment on above: Performed By: #### L 505.5000, L501.9100, L500.4050, L100.0100, L300.3900 #### [facility] [address] [place], [address] Potassium [Moles/Vol] 4.0 mmol/L Normal 3.5-5.1 [facility] Comment on above: Performed By: #### L 505.5000, L501.9100, L500.4050, L100.0100, L300.3900 #### [facility] [address] [place], [address] Sodium [Moles/Vol] 133 mmol/L Low 136-145 [facility] Comment on above: Performed By: #### L 505.5000, L501.9100, L500.4050, L100.0100, L300.3900 #### [facility] [address] [place], [address] T PROT 6.3 g/dL Low 6.4-8.2 [facility] Comment on above: Performed By: #### L 505.5000, L501.9100, L500.4050, L100.0100, L300.3900 #### [facility] [address] [place], [address] Urea nitrogen [Mass/Vol] 9 mg/dL Normal 7-18 [facility] Comment on above: Performed By: #### L 505.5000, L501.9100, L500.4050, L100.0100, L300.3900 #### [facility] [address], [address] Magnesiumon 05-22-2024 Magnesium [Mass/Vol] 1.4 mg/dL Low 1.6-2.6 [facility] Comment on above: Performed By: #### L 505.5000, L501.9100, L500.4050, L100.0100, L300.3900 #### [facility] [address] [place], [address] Phosphoruson 05-22-2024 Phosphate [Mass/Vol] 1.8 mg/dL Low 2.5-4.9 [facility] Comment on above: Performed By: #### L 505.5000, L501.9100, L500.4050, L100.0100, L300.3900 #### [facility] [address] [place], [address] Alcohol, Blood (Medical)-Ser umon 05-21-2024 SERUM ETOH 294.0 mg/dL Normal [facility] Comment on above: Result Comment: The serum:whole blood ethanol ratio is approximately 1.14 and varies slightly with hematocrit. Medical Alcohol reference interval and critical value in non-tolerant individuals; 50 - 100 Impairment 100 Intoxication 100 - 250 Severe Poisoning 250 - 400 Deep/possible fatal coma Performed By: #### L 505.5000, L501.9100, L500.4050, L100.0100, L300.3900 #### [facility] [address] [place], [address] Brain/Head without Contrasto n 05-21-2024 Brain/Head without Contrast [facility] Imaging Services [address] [address] Brain/Head without Contrast MR#: [id number] Acct: [id number] Name: WOODY NI Rep #: [id number] : 1960 M 64 From: Mundo Mackenzie DO PCP: Dr. Jani Quezada MD Status: REG ER Study: Brain/Head without Contrast Date of Exam: 01/09 Exam# [id number] Ordering Dr: Stella Mackay DO [id number] STUDY: CT BRAIN WITHOUT CONTRAST REASON FOR [...] 21:57 EDT Reading Location ID and State: [facility] / [place] Tel [id number], Service support , CC: Dr. Jani Quezada MD; Dr. Stella Mackay DO [employer] Supervisor: Signed Normal [facility] CBC W/Diff, Automatedon Anisocytosis Ql (Bld) RARE Normal [facility] Comment on above: Performed By: #### L 505.5000, L501.9100, L500.4050, L100.0100, L300.3900 #### [facility] [address] [place], [address] MACROCYTOSIS RARE Normal [facility] Comment on above: Performed By: #### L 505.5000, L501.9100, L500.4050, L100.0100, L300.3900 #### [facility] [address] [place], [address] PLT EST MOD DEC Normal ADEQ [facility] Comment on above: Performed By: #### L 505.5000, L501.9100, L500.4050, L100.0100, L300.3900 #### [facility] [address] [place], [address] RED CELL MORPH N CHROM Normal NORM C C [facility] Comment on above: Performed By: #### L 505.5000, L501.9100, L500.4050, L100.0100, L300.3900 #### [facility] [address] [place], [address] SMEAR COMMENT SEECOMMENT Normal [facility] Comment on above: Result Comment: LYMP HOPENIA NOTED Performed By: #### L 505.5000, L501.9100, L500.4050, L100.0100, L300.3900 #### [facility] [address] [place], [address] Comprehensive Metabolic Prof saul 05-21-2024 Albumin [Mass/Vol] 3.7 g/dL Normal 3.2-5.0 [facility] Comment on above: Performed By: #### L 505.5000, L501.9100, L500.4050, L100.0100, L300.3900 #### [facility] [address] [place], [address] Albumin/Globulin [Mass ratio] 1.1 {ratio} Normal 0.9-2.4 [facility] Comment on above: Performed By: #### L 505.5000, L501.9100, L500.4050, L100.0100, L300.3900 #### [facility] [address] [place], [address] ALK P 96 U/L Normal 45-117 [facility] Comment on above: Performed By: #### L 505.5000, L501.9100, L500.4050, L100.0100, L300.3900 #### [facility] [address] [place], [address] ALT [Catalytic activity/Vol] 84 U/L High 16-61 [facility] Comment on above: Performed By: #### L 505.5000, L501.9100, L500.4050, L100.0100, L300.3900 #### [facility] [address] [place], [address] AST [Catalytic activity/Vol] 197 U/L High 15-37 [facility] Comment on above: Performed By: #### L 505.5000, L501.9100, L500.4050, L100.0100, L300.3900 #### [facility] [address] [place], [address] Bilirubin [Mass/Vol] 0.90 mg/dL Normal 0.20-1.00 [facility] Comment on above: Result Comment: For patients on eltrombopag therapy, use of Dimension [place] TBIL is not recommended. Performed By: #### L 505.5000, L501.9100, L500.4050, L100.0100, L300.3900 #### [facility] [address] [place], [address] BUN/CRE 8.9 RATIO Low 10-20 [facility] Comment on above: Performed By: #### L 505.5000, L501.9100, L500.4050, L100.0100, L300.3900 #### [facility] [address] [place], [address] CA,Total 8.6 mg/dL Normal 8.5-10.1 [facility] Comment on above: Performed By: #### L 505.5000, L501.9100, L500.4050, L100.0100, L300.3900 #### [facility] [address] [place], [address] Chloride [Moles/Vol] 92 mmol/L Low 98-107 [facility] Comment on above: Performed By: #### L 505.5000, L501.9100, L500.4050, L100.0100, L300.3900 #### [facility] [address] [place], [address] CO2 [Moles/Vol] 17.0 mmol/L Low 21.0-32.0 [facility] Comment on above: Performed By: #### L 505.5000, L501.9100, L500.4050, L100.0100, L300.3900 #### [facility] [address] [place], [address] Creatinine [Mass/Vol] 1.23 mg/dL Normal 0.70-1.30 [facility] Comment on above: Result Comment: The validity of the calculated GFR GFRAA in patients over 70 years has not been determined. Clinical correlation is essential. Performed By: #### L 505.5000, L501.9100, L500.4050, L100.0100, L300.3900 #### [facility] [address] [place], [address] ECRCL 62.65 ml/min Normal [facility] Comment on above: Performed By: #### L 505.5000, L501.9100, L500.4050, L100.0100, L300.3900 #### [facility] [address] [place], [address] EST GFR - AA 76 mL/min Normal >60 [facility] Comment on above: Result Comment: Afri can Panamanian GFR Calc Performed By: #### L 505.5000, L501.9100, L500.4050, L100.0100, L300.3900 #### [facility] [address] [place], [address] GAP 18 High 5-15 [facility] Comment on above: Performed By: #### L 505.5000, L501.9100, L500.4050, L100.0100, L300.3900 #### [facility] [address] [place], [address] GFR/1.73 sq M.predicted among non-blacks MDRD (S/P/Bld) [Vol rate/Area] 63 mL/min/{1.73_m2} Normal >60 [facility] Comment on above: Result Comment: Non- GFR Calc Performed By: #### L 505.5000, L501.9100, L500.4050, L100.0100, L300.3900 #### [facility] [address] [place], [address] Globulin (S) [Mass/Vol] 3.4 g/dL Normal 2.2-4.2 [facility] Comment on above: Performed By: #### L 505.5000, L501.9100, L500.4050, L100.0100, L300.3900 #### [facility] [address] [place], [address] Glucose [Mass/Vol] 96 mg/dL Normal 74-106 [facility] Comment on above: Performed By: #### L 505.5000, L501.9100, L500.4050, L100.0100, L300.3900 #### [facility] [address] [place], [address] Potassium [Moles/Vol] 4.1 mmol/L Normal 3.5-5.1 [facility] Comment on above: Performed By: #### L 505.5000, L501.9100, L500.4050, L100.0100, L300.3900 #### [facility] [address] [place], [address] Sodium [Moles/Vol] 127 mmol/L Low 136-145 [facility] Comment on above: Performed By: #### L 505.5000, L501.9100, L500.4050, L100.0100, L300.3900 #### [facility] [address] [place], [address] T PROT 7.1 g/dL Normal 6.4-8.2 [facility] Comment on above: Performed By: #### L 505.5000, L501.9100, L500.4050, L100.0100, L300.3900 #### [facility] [address] [place], [address] Urea nitrogen [Mass/Vol] 11 mg/dL Normal 7-18 [facility] Comment on above: Performed By: #### L 505.5000, L501.9100, L500.4050, L100.0100, L300.3900 #### [facility] [address] [place], [address] Emergency Department Summary on 05-21-2024 Emergency Department Summary [facility] Medical Records Department [address] [place] [address] Emergency Department Summary 05/21/24 MR#: [id number] Acct: [id number] Name: WOODY NI Rep #: [id number] : 1960 64 From: Stella Mackay DO [...] drug use. Patient wants detox from alcohol. [facility] Medical History Alcohol dependence Alcohol abuse Diabetes [...] Denies rhinorr (more content not included)... Normal [facility] H [facility]-21-2024 H&P Exam - Hospitalist [facility] Medical Records Department [address] [place] [address] H P Exam - Hospitalist 05/21/24 2306 MR#: [id number] Acct: [id number] Name: WOODY NI Rep #: [id number] : 1960 64 From: Ruddy Galdamez DO PCP: Dr. Jani Quezada MD Status:ADM IN Location: [facility] UL592-0 HPI - General General Date of Admission: [...] that so that was in [facility] presented to [facility] who discharged him to home. Patient has continued to drink since being at home. After his fall he is now requesting treatment for alcohol withdrawal. [facility] Medical History Alcohol dependence Alcohol abuse Diabetes [...] mentioned abov (more content not included)... Normal [facility] Spine Cervical without Contr ason 05-21-2024 Spine Cervical without Contras [facility] Imaging Services [address] [place] [address] Spine Cervical without Contras MR#: [id number] Acct: [id number] Name: WOODY NI Rep #: [id number] : 1960 M 64 From: Mundo Mackenzie DO PCP: Dr. Jani Quezada MD Status: REG ER Study: Spine Cervical without Contras Date of Exam: 0 05/21/24 Exam# [id number] Ordering Dr: Stella Mackay DO [id number] STUDY: CT CERVICAL SPINE WITHOUT CONTRAST REASON [...] 22:12 EDT Reading Location ID and State: [facility] / [place] Tel [id number], Service support , CC: Dr. Jani Quezada MD; Dr. Stella Mackay DO [employer] Supervisor: Signed Normal [facility] Urine Drug Screen (VISTA)on 05-21-2024 AMPHETAMINES Negative Normal <1000 ng/mL [facility] Comment on above: Performed By: #### L 501.5300, L501.5200 #### [facility] [address] [place], [address] BARBITIURATES Negative Normal < 200 ng/mL [facility] Comment on above: Performed By: #### L 501.5300, L501.5200 #### [facility] [address] [place], [place], [address] BENZODIAZIPINE Negative Normal < 200 ng/mL [facility] Comment on above: Performed By: #### L 501.5300, L501.5200 #### [facility] [address] [place], [address] COCAINE Negative Normal < 300 ng/mL [facility] Comment on above: Performed By: #### L 501.5300, L501.5200 #### [facility] [address] [place], [address] ECSTACY Negative Normal < 500 ng/mL [facility] Comment on above: Performed By: #### L 501.5300, L501.5200 #### [facility] [address] [place], [address] METHADONE Negative Normal < 300 ng/mL [facility] Comment on above: Performed By: #### L 501.5300, L501.5200 #### [facility] [address] [place], [address] OPIATES Negative Normal < 300 ng/mL [facility] Comment on above: Performed By: #### L 501.5300, L501.5200 #### [facility] [address] [place], [address] PCP Negative Normal < 25 ng/mL [facility] Comment on above: Performed By: #### L 501.5300, L501.5200 #### [facility] [address] [place], [address] THC Positive Abnormal < 50 ng/mL [facility] Comment on above: Performed By: #### L 501.5300, L501.5200 #### [facility] [address] [place], [address] VISTA UDS PH 6 Normal [facility] Comment on above: Performed By: #### L 501.5300, L501.5200 #### [facility] [address] [place], [address] Emergency Department Summary on 05-03-2024 Emergency Department Summary [facility] Medical Records Department [address] [place] [address] Emergency Department Summary 05/03/24 MR#: [id number] Acct: [id number] Name: WOODY NI Rep #: [id number] : 1960 64 From: Daniel Knapp DO [...] was brought to the hospital for evaluation [facility] Medical History Alcohol dependence Alcohol abuse Diabetes [...] type: beer (more content not included)... Normal [facility] Urine Drug Screen (VISTA)on 05-03-2024 AMPHETAMINES Negative Normal <1000 ng/mL [facility] Comment on above: Performed By: #### L 500.2500, L100.0100, L501.5200 #### [facility] [address] [facility] [address] BARBITIURATES Positive Abnormal < 200 ng/mL [facility] Comment on above: Performed By: #### L 500.2500, L100.0100, L501.5200 #### [facility] [address] [facility] [address] BENZODIAZIPINE Negative Normal < 200 ng/mL [facility] Comment on above: Performed By: #### L 500.2500, L100.0100, L501.5200 #### [facility] [address] [facility] [address] COCAINE Negative Normal < 300 ng/mL [facility] Comment on above: Performed By: #### L 500.2500, L100.0100, L501.5200 #### [facility] [address] [place], [address] ECSTACY Negative Normal < 500 ng/mL [facility] Comment on above: Performed By: #### L 500.2500, L100.0100, L501.5200 #### [facility] [address] [facility] [address] METHADONE Negative Normal < 300 ng/mL [facility] Comment on above: Performed By: #### L 500.2500, L100.0100, L501.5200 #### [facility] [address] [facility] [address] OPIATES Negative Normal < 300 ng/mL [facility] Comment on above: Performed By: #### L 500.2500, L100.0100, L501.5200 #### [facility] [address] [place], [address] PCP Negative Normal < 25 ng/mL [facility] Comment on above: Performed By: #### L 500.2500, L100.0100, L501.5200 #### [facility] [address] [place], [address] THC Positive Abnormal < 50 ng/mL [facility] Comment on above: Performed By: #### L 500.2500, L100.0100, L501.5200 #### [facility] [address] [place], [address] VISTA UDS PH 5 Normal [facility] Comment on above: Performed By: #### L 500.2500, L100.0100, L501.5200 #### [facility] [address] [place], [address] Alcohol, Blood (Medical)-Ser umon 05-02-2024 SERUM ETOH 347.0 mg/dL Invalid Interpretation Code [facility] Comment on above: Result Comment: Crit ical Result(s) Called at: 23:58:38 05/02/2024 by: Moshe Werner. to [employer] BRAILLE CODER. Results read back by same. The serum:whole blood ethanol ratio is approximately 1.14 and varies slightly with hematocrit. Medical Alcohol reference interval and critical value in non-tolerant individuals; 50 - 100 Impairment 100 Intoxication 100 - 250 Severe Poisoning 250 - 400 Deep/possible fatal coma Performed By: #### L 500.2500, L100.0100, L501.5200 #### [facility] [address] [place], [address] Basic Metabolic Profile (BMP )on 05-02-2024 BUN/CRE 12.7 RATIO Normal 10-20 [facility] Comment on above: Performed By: #### L 500.2500, L100.0100, L501.5200 #### [facility] [address] [place], [address] CA,Total 8.7 mg/dL Normal 8.5-10.1 [facility] Comment on above: Performed By: #### L 500.2500, L100.0100, L501.5200 #### [facility] [address] [place], [address] Chloride [Moles/Vol] 100 mmol/L Normal 98-107 [facility] Comment on above: Performed By: #### L 500.2500, L100.0100, L501.5200 #### [facility] [address] [place], [address] CO2 [Moles/Vol] 16.0 mmol/L Low 21.0-32.0 [facility] Comment on above: Performed By: #### L 500.2500, L100.0100, L501.5200 #### [facility] [address] [place], [address] Creatinine [Mass/Vol] 0.95 mg/dL Normal 0.70-1.30 [facility] Comment on above: Result Comment: The validity of the calculated GFR GFRAA in patients over 70 years has not been determined. Clinical correlation is essential. Performed By: #### L 500.2500, L100.0100, L501.5200 #### [facility] [address] [place], [address] ECRCL 81.11 ml/min Normal [facility] Comment on above: Performed By: #### L 500.2500, L100.0100, L501.5200 #### [facility] [address] [place], [address] EST GFR - AA 103 mL/min Normal >60 [facility] Comment on above: Result Comment: Afri can Panamanian GFR Calc Performed By: #### L 500.2500, L100.0100, L501.5200 #### [facility] [address] [place], [address] GAP 16 High 5-15 [facility] Comment on above: Performed By: #### L 500.2500, L100.0100, L501.5200 #### [facility] [address] [place], [address] GFR/1.73 sq M.predicted among non-blacks MDRD (S/P/Bld) [Vol rate/Area] 85 mL/min/{1.73_m2} Normal >60 [facility] Comment on above: Result Comment: Non- GFR Calc Performed By: #### L 500.2500, L100.0100, L501.5200 #### [facility] [address] [place], [address] Glucose [Mass/Vol] 88 mg/dL Normal 74-106 [facility] Comment on above: Performed By: #### L 500.2500, L100.0100, L501.5200 #### [facility] [address] [place], [address] Potassium [Moles/Vol] 3.3 mmol/L Low 3.5-5.1 [facility] Comment on above: Performed By: #### L 500.2500, L100.0100, L501.5200 #### [facility] [address] [place], [address] Sodium [Moles/Vol] 132 mmol/L Low 136-145 [facility] Comment on above: Performed By: #### L 500.2500, L100.0100, L501.5200 #### [facility] [address] [place], [address] Urea nitrogen [Mass/Vol] 12 mg/dL Normal 7-18 [facility] Comment on above: Performed By: #### L 500.2500, L100.0100, L501.5200 #### [facility] [address] [place], [address] Brain/Head without Contrasto n 05-02-2024 Brain/Head without Contrast [facility] Imaging Services [address] [place] [address] Brain/Head without Contrast MR#: [id number] Acct: [id number] Name: WOODY NI Rep #: [id number] : 1960 M 64 From: Beto Urena MD PCP: Dr. Jani Quezada MD Status: REG ER Study: Brain/Head without Contrast Date of Exam: 04/18 03/11 Exam# [id number] Ordering Dr: Daniel Knapp DO [id number] INDICATION: head injury EXAMINATION: CT BRAIN - [...] Dr. Jani Quezada MD; Daniel Knapp DO [employer]ing [employer] Disp[employer] Supervisor: Signed Normal [facility] CBC W/Diff, Automatedon 04-18 Absolute Lymph 2.93 X10 3/uL Normal 0.83-4.51 [facility] Comment on above: Performed By: #### L 500.2500, L100.0100, L501.5200 #### [facility] [address] [place], [address] Absolute Neut 4.2 X10 3/uL Normal 2.0-7.7 [facility] Comment on above: Performed By: #### L 500.2500, L100.0100, L501.5200 #### [facility] [address] [place], [address] Basophils/100 WBC (Bld) 0.6 % Normal 0-1 [facility] Comment on above: Performed By: #### L 500.2500, L100.0100, L501.5200 #### [facility] [address] [place], [address] Eosinophils/100 WBC (Bld) 2.6 % Normal 0-5 [facility] Comment on above: Performed By: #### L 500.2500, L100.0100, L501.5200 #### [facility] [address] [place], [address] Erythrocyte distribution width (RBC) [Ratio] 14.0 % Normal 11.6-14.6 [facility] Comment on above: Performed By: #### L 500.2500, L100.0100, L501.5200 #### [facility] [address] [place], [address] Hematocrit (Bld) [Volume fraction] 34.9 % Low 40-54 [facility] Comment on above: Performed By: #### L 500.2500, L100.0100, L501.5200 #### [facility] [address] [place], [address] Hemoglobin (Bld) [Mass/Vol] 12.0 g/dL Low 13.0-16.5 [facility] Comment on above: Performed By: #### L 500.2500, L100.0100, L501.5200 #### [facility] [address] [place], [address] IG% 0.900 Normal 0.0-0.9 [facility] Comment on above: Result Comment: IG% - Immature Granulocytes (promyelocytes, myelocytes and metamyelocytes) > 1% indicates that a LEFT SHIFT is Present. Performed By: #### L 500.2500, L100.0100, L501.5200 #### [facility] [address] [place], [address] Lymphocytes/100 WBC (Bld) 36.9 % Normal 19-41 [facility] Comment on above: Performed By: #### L 500.2500, L100.0100, L501.5200 #### [facility] [address] [place], [address] MCH (RBC) [Entitic mass] 30.0 pg Normal 27.0-32.0 [facility] Comment on above: Performed By: #### L 500.2500, L100.0100, L501.5200 #### [facility] [address] [place], [address] MCHC (RBC) [Mass/Vol] 34.4 g/dL Normal 32-36 [facility] Comment on above: Performed By: #### L 500.2500, L100.0100, L501.5200 #### [facility] [address] [place], [address] MCV (RBC) [Entitic vol] 87.3 fL Normal 80-94 [facility] Comment on above: Performed By: #### L 500.2500, L100.0100, L501.5200 #### [facility] [address] [place], [address] Monocytes/100 WBC (Bld) 6.1 % Normal 0-10 [facility] Comment on above: Performed By: #### L 500.2500, L100.0100, L501.5200 #### [facility] [address] [place], [address] Neutrophils/100 WBC (Bld) 52.9 % Normal 47-70 [facility] Comment on above: Performed By: #### L 500.2500, L100.0100, L501.5200 #### [facility] [address] [place], [address] Nucleated RBC (Bld) [#/Vol] 0 10*3/uL Normal 0-5 [facility] Comment on above: Performed By: #### L 500.2500, L100.0100, L501.5200 #### [facility] [address] [place], [address] Platelet mean volume (Bld) [Entitic vol] 8.6 fL Normal 6.2-12.0 [facility] Comment on above: Performed By: #### L 500.2500, L100.0100, L501.5200 #### [facility] [address] [place], [address] Platelets (Bld) [#/Vol] 185 10*3/uL Normal 150-450 [facility] Comment on above: Performed By: #### L 500.2500, L100.0100, L501.5200 #### [facility] [address] [place], [address] RBC (Bld) [#/Vol] 4.00 10*6/uL Low 4.6-6.2 [facility] Comment on above: Performed By: #### L 500.2500, L100.0100, L501.5200 #### [facility] [address] [place], [address] RDW SD 45.0 fl High 35.1-43.9 [facility] Comment on above: Performed By: #### L 500.2500, L100.0100, L501.5200 #### [facility] [address] [place], [address] WBC (Bld) [#/Vol] 7.9 10*3/uL Normal 4.4-11.0 [facility] Comment on above: Performed By: #### L 500.2500, L100.0100, L501.5200 #### [facility] [address] [place], [address] Liver Profileon 05-02-2024 Albumin [Mass/Vol] 3.8 g/dL Normal 3.2-5.0 [facility] Comment on above: Performed By: #### L 500.2500, L100.0100, L501.5200 #### [facility] [address] [place], [address] ALK P 49 U/L Normal 45-117 [facility] Comment on above: Performed By: #### L 500.2500, L100.0100, L501.5200 #### [facility] [address] [place], [address] ALT [Catalytic activity/Vol] 29 U/L Normal 16-61 [facility] Comment on above: Performed By: #### L 500.2500, L100.0100, L501.5200 #### [facility] [address] [place], [address] AST [Catalytic activity/Vol] 29 U/L Normal 15-37 [facility] Comment on above: Performed By: #### L 500.2500, L100.0100, L501.5200 #### [facility] [address] [place], [address] Bilirubin [Mass/Vol] 0.30 mg/dL Normal 0.20-1.00 [facility] Comment on above: Result Comment: For patients on eltrombopag therapy, use of Dimension [place] TBIL is not recommended. Performed By: #### L 500.2500, L100.0100, L501.5200 #### [facility] [address] [place], [address] Bilirubin.direct [Mass/Vol] 0.14 mg/dL Normal 0.00-0.30 [facility] Comment on above: Performed By: #### L 500.2500, L100.0100, L501.5200 #### [facility] [address] [place], [address] Globulin (S) [Mass/Vol] 3.6 g/dL Normal 2.2-4.2 [facility] Comment on above: Performed By: #### L 500.2500, L100.0100, L501.5200 #### [facility] [address] [place], [address] T PROT 7.4 g/dL Normal 6.4-8.2 [facility] Comment on above: Performed By: #### L 500.2500, L100.0100, L501.5200 #### [facility] [address] [place], [address] Pelvis 1 or 2 Viewson 2023 Pelvis 1 or 2 Views [facility] Imaging Services [address] [place] [address] Pelvis 1 or 2 Views MR#: [id number] Acct: [id number] Name: WOODY NI Rep #: [id number] : 1960 M 64 From: Beto Urena MD PCP: Dr. Jani Quezada MD Status: REG ER Study: Pelvis 1 or 2 Views Date of Exam: 05/02/24 Exam# [id number] Ordering Dr: Daniel Knapp DO [id number] INDICATION: fall EXAMINATION/TECHNIQUE: X-RAY - XR Pelvis [...] Dr. Jani Quezada MD; Daniel Knapp DO [employer]ing [employer] Dispensing Supervisor: Signed Normal [facility] Spine Cervical without Contr ason 05-02-2024 Spine Cervical without Contras [facility] Imaging Services [address] [place], [place] [address] Spine Cervical without Contras MR#: [id number] Acct: [id number] Name: WOODY NI Rep #: [id number] : 1960 M 64 From: Beto Urena MD PCP: Dr. Jani Quezada MD Status: REG ER Study: Spine Cervical without Contras Date of Exam: 0 05/02/24 Exam# [id number] Ordering Dr: Daniel Knapp DO [id number] INDICATION: fall EXAMINATION: CT CERVICAL SPINE - [...] Reading Location ID and State: [facility] [place] , Service support , CC: Dr. Jani Quezada MD; Daniel Knapp DO Mixing And Dispensing Supervisor: Signed Normal [facility] CARECOORDon 05-01-2024 CARECONASHUA Normal [facility] CARECOORDon 04-30-2024 CARECONASHUA Normal [facility] IDNon 04-30-2024 IDN Normal [facility] - Chemistry and C hemistry - challengeon 04-30-2024 Glucose [Mass/Vol] 134 mg/dL High 70 - 100 mg/dL [facility] Glucose [Mass/Vol] 137 mg/dL High 70 - 100 mg/dL [facility] No Panel Informationon 04-30 Interpretation and review of laboratory results Abnormal [facility] Performed by: [facility], [address] [facility] [address] CLIA ID: [id number] [facility] Interpretation and review of laboratory results Abnormal [facility] Performed by: [facility], [address] [facility] [address] CLIA ID: [id number] [facility] Nursing Noteon 04-30-2024 Nursing Note AVS medication list and follow up appointment reviewed with pt. Pt medications sent to [facility] per his request. Pt states understanding. . [facility] [id number] 04-29-2024 [id number] Pt refusing home car e services. PACC signing off. Normal [facility] [id number] Aged Or Disabled Care Worker following case for Discharge Needs. IF denied SNF placement - will follow for discharge plan for possibly home with home care. [facility] CARECOORDon 04-29-2024 CARECONASHUA Normal [facility] CARENYORD Normal [facility] CARECONASHUA Normal [facility] Normal [facility] - Chemistry and C hemistry - challengeon 04-29-2024 Glucose [Mass/Vol] 135 mg/dL High 70 - 100 mg/dL [facility] Glucose [Mass/Vol] 115 mg/dL High 70 - 100 mg/dL [facility] Glucose [Mass/Vol] 130 mg/dL High 70 - 100 mg/dL [facility] Glucose [Mass/Vol] 103 mg/dL High 70 - 100 mg/dL [facility] No Panel Informationon 04-29 Interpretation and review of laboratory results Abnormal [facility] Performed by: [facility], [address] [facility] [address] CLIA ID: [id number] [facility] Interpretation and review of laboratory results Abnormal [facility] Performed by: [facility], [address], [facility] [address] CLIA ID: [id number] [facility] Interpretation and review of laboratory results Abnormal [facility] Performed by: [facility], [address], [facility] [address] CLIA ID: [id number] [facility] Interpretation and review of laboratory results Abnormal [facility] Performed by: [facility], [address], [facility] [address] CLIA ID: [id number] [facility] Progress Noteon 04-29-2024 Progress Note Normal [facility] Progress Note Normal [facility] Progress Note Normal [facility] Progress Note Nutrition update completed. Chart reviewed. Patient continues as a level 1 for nutrition care. Normal [facility] Progress Note Normal [facility] CARECOORDon 04-28-2024 CARECOORD Reviewed careport an d continue to await auth. . Normal [facility] CARECOORD Normal [facility] - Chemistry and C hemistry - challengeon 04-28-2024 Glucose [Mass/Vol] 106 mg/dL High 70 - 100 mg/dL [facility] Glucose [Mass/Vol] 78 mg/dL 70 - 100 mg/dL [facility] Glucose [Mass/Vol] 96 mg/dL 70 - 100 mg/dL [facility] No Panel Informationon 04-28 Interpretation and review of laboratory results Abnormal [facility] Performed by: [facility], [address], [facility] [address] CLIA ID: [id number] [facility] Interpretation and review of laboratory results Normal [facility] Performed by: [facility], [address], [facility] [address] CLIA ID: [id number] [facility] Interpretation and review of laboratory results Normal [facility] Performed by: [facility], [address], [facility] [address] CLIA ID: [id number] [facility] Progress Noteon 04-28-2024 Progress Note Normal [facility] Progress Note Normal [facility] Progress Note Normal [facility] Progress Note Normal [facility] Progress Note Normal [facility] CARECOORDon 04-27-2024 CARECOORD Normal [facility] CARECOORD Normal [facility] CARECOORD Normal [facility] CARECOORD Sent updated notes lulu Rhodes via Careport per TCC request. Await review and response regarding ability to accept. TCC notified. Normal [facility] CBC W Auto Differential pane l (Bld)on 04-27-2024 Basophils (Bld) [#/Vol] 0.0 10*3/uL 0.0 - 0.2 10*3/uL [facility] Basophils/100 WBC (Bld) 0.6 % 0.0 - 2.0 % [facility] Eosinophils (Bld) [#/Vol] 0.3 10*3/uL 0.0 - 0.5 10*3/uL [facility] Eosinophils/100 WBC (Bld) 4.7 % 0.0 - 6.0 % [facility] Erythrocyte distribution width (RBC) [Ratio] 13.7 % 11.5 - 15.0 % [facility] Hematocrit (Bld) [Volume fraction] 34.2 % Low 40.0 - 52.0 % [facility] Hemoglobin (Bld) [Mass/Vol] 11.2 g/dL Low 13.0 - 18.0 g/dL [facility] Immature granulocytes (Bld) [#/Vol] 0.1 10*3/uL High NINF - 0.1 10*3/uL [facility] Immature granulocytes/100 WBC (Bld) 0.8 % 0.0 - 2.0 % [facility] Interpretation and review of laboratory results Abnormal [facility] IPF 3 [facility] Lymphocytes (Bld) [#/Vol] 2.5 10*3/uL 1.0 - 4.3 10*3/uL [facility] Lymphocytes/100 WBC (Bld) 38.4 % 15.0 - 45.0 % [facility] MCH (RBC) [Entitic mass] 30.4 pg 26.0 - 34.0 pg [facility] MCHC (RBC) [Mass/Vol] 32.7 % 30.5 - 36.0 % [facility] MCV (RBC) [Entitic vol] 92.9 fL 77.0 - 99.0 fL [facility] Monocytes (Bld) [#/Vol] 0.6 10*3/uL 0.0 - 0.9 10*3/uL [facility] Monocytes/100 WBC (Bld) 8.9 % 5.0 - 13.0 % [facility] Neutrophils (Bld) [#/Vol] 3.0 10*3/uL 1.8 - 7.5 10*3/uL [facility] Neutrophils/100 WBC (Bld) 46.6 % 38.0 - 82.0 % [facility] Nucleated RBC/100 WBC (Bld) [Ratio] 0.0 % [facility] Platelet mean volume (Bld) [Entitic vol] 9.7 fL 9.0 - 12.7 fL [facility] Platelets (Bld) [#/Vol] 105 10*3/uL Low 140 - 440 10*3/uL [facility] RBC (Bld) [#/Vol] 3.68 10*6/uL Low 4.40 - 5.9 0 10*6/uL [facility] WBC (Bld) [#/Vol] 6.4 10*3/uL 3.6 - 10.7 10*3/uL [facility] CBC WITH AUTO DIFFERENTIALon 04-27-2024 Basophils (Bld) [#/Vol] 0.0 10*3/uL Normal 0.0-0.2 [facility] Comment on above: Performed By: #### L [id number] ####Senior Telecommunications Technician: TRESSA SANTIZO ([phone])[facility] ([facility] [place] [address] Basophils/100 WBC (Bld) 0.6 % Normal 0.0-2.0 [facility] Comment on above: Performed By: #### L [id number] ####Senior Telecommunications Technician: TRESSA SANTIZO ([phone])[facility] ([facility])[address] Eosinophils (Bld) [#/Vol] 0.3 10*3/uL Normal 0.0-0.5 [facility] Comment on above: Performed By: #### L [id number] ####Senior Telecommunications Technician: TRESSA SANTIZO ([phone])[facility] ([facility])[address] Eosinophils/100 WBC (Bld) 4.7 % Normal 0.0-6.0 [facility] Comment on above: Performed By: #### L [id number] ####Senior Telecommunications Technician: TRESSA SANTIZO ([phone])[facility])[address] Erythrocyte distribution width (RBC) [Ratio] 13.7 % Normal 11.5-15.0 [facility] Comment on above: Performed By: #### L [id number] ####Senior Telecommunications Technician: TRESSA SANTIZO ([phone])[facility] ([facility])[address] Hematocrit (Bld) [Volume fraction] 34.2 % Low 40.0-52.0 [facility] Comment on above: Performed By: #### L [id number] ####Senior Telecommunications Technician: TRESSA SANTIZO ([id number])[facility] ([facility])[address] [place] [address] Hemoglobin (Bld) [Mass/Vol] 11.2 g/dL Low 13.0-18.0 [facility] Comment on above: Performed By: #### L [id number] ####Senior Telecommunications Technician: TRESSA SANTIZO ([phone])[facility] ([facility])[address] IMMATURE GRANS % 0.8 % Normal 0.0-2.0 [facility] Comment on above: Performed By: #### L [id number] ####Senior Telecommunications Technician: TRESSA SANTIZO ([phone])[facility] ([facility])[address] IMMATURE GRANS ABSOLUTE 0.1 10*3/uL High <0.1 [facility] Comment on above: Performed By: #### L [id number] ####Senior Telecommunications Technician: TRESSA SANTIZO ([phone])[facility] ([facility])[address] IPF 3 Normal [facility] Comment on above: Performed By: #### L [id number] ####Senior Telecommunications Technician: TRESSA SANTIZO ([phone])[facility] ([facility])[address] Lymphocytes (Bld) [#/Vol] 2.5 10*3/uL Normal 1.0-4.3 [facility] Comment on above: Performed By: #### L [id number] ####Senior Telecommunications Technician: TRESSA SANTIZO ([phone])[facility] ([facility])[address] Lymphocytes/100 WBC (Bld) 38.4 % Normal 15.0-45.0 [facility] Comment on above: Performed By: #### L [id number] ####Senior Telecommunications Technician: TRESSA SANTIZO ([phone])[facility] ([facility])[address] MCH (RBC) [Entitic mass] 30.4 pg Normal 26.0-34.0 [facility] Comment on above: Performed By: #### L [id number] ####Senior Telecommunications Technician: TRESSA SANTIZO ([phone])[facility] ([facility])[address] [place] [address] MCHC 32.7 % Normal 30.5-36.0 [facility] Comment on above: Performed By: #### L [id number] ####Senior Telecommunications Technician: TRESSA SANTIZO ([phone])[facility] ([facility])[address] MCV (RBC) [Entitic vol] 92.9 fL Normal 77.0-99.0 [facility] Comment on above: Performed By: #### L [id number] ####Senior Telecommunications Technician: TRESSA SANTIZO ([id number])[facility] ([facility])[address] Monocytes (Bld) [#/Vol] 0.6 10*3/uL Normal 0.0-0.9 [facility] Comment on above: Performed By: #### L [id number] ####Senior Telecommunications Technician: TRESSA SANTIZO ([phone])[facility] ([facility])[address] Monocytes/100 WBC (Bld) 8.9 % Normal 5.0-13.0 [facility] Comment on above: Performed By: #### L [id number] ####Senior Telecommunications Technician: TRESSA SANTIZO ([id number])[facility] ([facility])[address] NEUTROPHILS ABSOLUTE 3.0 10*3/uL Normal 1.8-7.5 [facility] Comment on above: Performed By: #### L [id number] ####Senior Telecommunications Technician: TRESSA SANTIZO ([id number])[facility] ([facility])[address] Neutrophils/100 WBC (Bld) 46.6 % Normal 38.0-82.0 [facility] Comment on above: Performed By: #### L [id number] ####Senior Telecommunications Technician: TRESSA SANTIZO ([id number])[facility] [place] ([facility])[address] NRBC 0.0 /100 WBCs Normal 0.0-2.0 [facility] Comment on above: Performed By: #### L [id number] ####Senior Telecommunications Technician: TRESSA SANTIZO ([phone])[facility] [place] ([facility])[address] Platelet mean volume (Bld) [Entitic vol] 9.7 fL Normal 9.0-12.7 [facility] Comment on above: Performed By: #### L [id number] ####Senior Telecommunications Technician: TRESSA SANTIZO ([id number])[facility] ([facility])[address] Platelets (Bld) [#/Vol] 105 10*3/uL Low 140-440 [facility] Comment on above: Performed By: #### L [id number] ####Senior Telecommunications Technician: TRESSA SANTIZO ([id number])[facility] ([facility])[address] RBC (Bld) [#/Vol] 3.68 10*6/uL Low 4.40-5.90 [facility] Comment on above: Performed By: #### L [id number] ####Senior Telecommunications Technician: TRESSA SANTIZO ([id number])[facility] ([facility])[address] WBC (Bld) [#/Vol] 6.4 10*3/uL Normal 3.6-10.7 [facility] Comment on above: Performed By: #### L [id number] ####Senior Telecommunications Technician: TRESSA SANTIZO ([id number])[facility] ([facility])[address] COMPREHENSIVE METABOLIC PANE Peter 04-27-2024 Albumin [Mass/Vol] 3.9 g/dL Normal 3.5-5.0 [facility] Comment on above: Performed By: #### L [id number] ####Senior Telecommunications Technician: TRESSA SANTIZO ([id number])[facility] ([facility])[address] ALP [Catalytic activity/Vol] 45 U/L Normal 38-126 [facility] Comment on above: Performed By: #### L [id number] ####Senior Telecommunications Technician: TRESSA SANTIZO ([id number])[facility] ([facility])[address] ALT [Catalytic activity/Vol] 19 U/L Normal 0-49 [facility] Comment on above: Performed By: #### L [id number] ####Senior Telecommunications Technician: TRESSA SANTIZO ([phone])[facility] ([facility])[address] Anion gap [Moles/Vol] 7 mmol/L Normal 3-13 [facility] Comment on above: Performed By: #### L [id number] ####Senior Telecommunications Technician: TRESSA SANTIZO ([id number])[facility] ([facility])[address] AST [Catalytic activity/Vol] 29 U/L Normal 15-46 [facility] Comment on above: Performed By: #### L [id number] ####Senior Telecommunications Technician: TRESSA SANTIZO ([id number])[facility])[address] Bilirubin [Mass/Vol] 0.4 mg/dL Normal 0.2-1.3 [facility] Comment on above: Performed By: #### L [id number] ####Senior Telecommunications Technician: TRESSA SANTIZO ([id number])[facility] ([facility])[address] Calcium [Mass/Vol] 9.2 mg/dL Normal 8.4-10.4 [facility] Comment on above: Performed By: #### L [id number] ####Senior Telecommunications Technician: TRESSA SANTIZO ([phone])[facility] ([facility] [place] [address] [place] Chloride [Moles/Vol] 100 mmol/L Normal 98-107 [facility] Comment on above: Performed By: #### L [id number] ####Senior Telecommunications Technician: TRESSA SANTIZO ([id number])[facility] ([facility])[address] CO2 [Moles/Vol] 25 mmol/L Normal 22-30 [facility] Comment on above: Performed By: #### L [id number] ####Senior Telecommunications Technician: TRESSA SANTIZO ([phone])[facility] [place] ([facility])[address] Creatinine [Mass/Vol] 0.85 mg/dL Normal 0.66-1.25 [facility] Comment on above: Performed By: #### L [id number] ####Senior Telecommunications Technician: TRESSA SANTIZO ([phone])[facility] ([facility])[address] GLOMERULAR FILTRATION RATE ML/MIN/1.73 SQ M.PREDICTED >90.0 Normal >60.0 [facility] Comment on above: Result Comment: Calc ulation based on the Chronic Kidney Disease Epidemiology Collaboration (CKD-EPI) equation refit without adjustment for raceORDER COMMENTS:Slightly Hemolyzed Performed By: #### L [id number] ####Senior Telecommunications Technician: TRESSA SANTIZO ([phone])[facility] ([facility])[address] Glucose [Mass/Vol] 73 mg/dL Normal 70-100 [facility] Comment on above: Performed By: #### L [id number] ####Senior Telecommunications Technician: TRESSA SANTIZO ([phone])[facility] (SBHLAB)[address] [place] [address] [place] Potassium [Moles/Vol] 4.1 mmol/L Normal 3.5-5.1 [facility] Comment on above: Performed By: #### L [id number] ####Senior Telecommunications Technician: TRESSA SANTIZO ([phone])[facility] (SB[facility])[address] [place] [address] [place] Protein [Mass/Vol] 6.7 g/dL Normal 6.3-8.2 [facility] Comment on above: Performed By: #### L [id number] ####Senior Telecommunications Technician: TRESSA SANTIZO ([phone])[facility] ([facility])[address] [place] [address] [place] Sodium [Moles/Vol] 132 mmol/L Low 135-145 [facility] Comment on above: Performed By: #### L [id number] ####Senior Telecommunications Technician: TRESSA SANTIZO ([phone])[facility] (SBHLAB)[address] Urea nitrogen [Mass/Vol] 9 mg/dL Normal 9-20 [facility] Comment on above: Performed By: #### L [id number] ####Senior Telecommunications Technician: TRESSA SANTIZO ([phone])[facility] (SBHLAB)[address] Comprehensive metabolic 1998 panelon 04-27-2024 Albumin [Mass/Vol] 3.9 g/dL 3.5 - 5.0 g/dL [facility] ALP [Catalytic activity/Vol] 45 U/L 38 - 126 U/L [facility] ALT [Catalytic activity/Vol] 19 U/L 0 - 49 U/L [facility] Anion gap [Moles/Vol] 7 mmol/L 3 - 13 mmol/L [facility] AST [Catalytic activity/Vol] 29 U/L 15 - 46 U/L [facility] Bilirubin [Mass/Vol] 0.4 mg/dL 0.2 - 1 .3 mg/dL [facility] Calcium [Mass/Vol] 9.2 mg/dL 8.4 - 10. 4 mg/dL [facility] Chloride [Moles/Vol] 100 mmol/L 98 - 10 7 mmol/L [facility] CO2 [Moles/Vol] 25 mmol/L 22 - 30 mmol/L [facility] Creatinine [Mass/Vol] 0.85 mg/dL 0.66 - 1.25 mg/dL [facility] GFR/1.73 sq M.predicted MDRD (S/P/Bld) [Vol rate/Area] - PINF [facility] Comment on above: Calculation based on the Chronic Kidney Disease Epidemiology Collaboration (CKD-EPI) equation refit without adjustment for race Glucose [Mass/Vol] 73 mg/dL 70 - 100 mg/dL [facility] Interpretation and review of laboratory results Abnormal [facility] Potassium [Moles/Vol] 4.1 mmol/L 3.5 - 5.1 mmol/L [facility] Protein [Mass/Vol] 6.7 g/dL 6.3 - 8.2 g/dL [facility] Sodium [Moles/Vol] 132 mmol/L Low 135 - 145 mmol/L [facility] Urea nitrogen [Mass/Vol] 9 mg/dL 9 - 20 mg/dL [facility] Slightly Hemolyzed [facility] Laboratory - Chemistry and C hemistry - challengeon 04-27-2024 Glucose [Mass/Vol] 107 mg/dL High 70 - 100 mg/dL [facility] Glucose [Mass/Vol] 111 mg/dL High 70 - 100 mg/dL [facility] Glucose [Mass/Vol] 110 mg/dL High 70 - 100 mg/dL [facility] Glucose [Mass/Vol] 76 mg/dL 70 - 100 mg/dL [facility] No Panel Informationon 04-27 Interpretation and review of laboratory results Abnormal [facility] Performed by: [facility], [address] [facility] [place], [facility] [address] CLIA ID: [id number] [facility] Interpretation and review of laboratory results Abnormal [facility] Performed by: [facility], [address] [facility] [place], [facility] [address] CLIA ID: [id number] [facility] Interpretation and review of laboratory results Abnormal [facility] Performed by: [facility], [address] [facility] [place], [facility] [address] CLIA ID: [id number] [facility] Interpretation and review of laboratory results Normal [facility] Performed by: [facility], [address], [facility] [address] CLIA ID: [id number] [facility] Progress Noteon 04-27-2024 Progress Note Normal [facility] Progress Note Normal [facility] Progress Note Normal [facility] Progress Note Normal [facility] CARECOORDon 04-26-2024 CARECOORD [facility] unable to accept. [facility] able to accept and pt agreeable. Anticipate starting auth 04/27 Normal [facility] CAR[facility]OORD Normal [facility] CAR[facility]OORD Normal [facility] CBC W Auto Differential pane l (Bld)on 04-26-2024 Basophils (Bld) [#/Vol] 0.0 10*3/uL 0.0 - 0.2 10*3/uL [facility] Basophils/100 WBC (Bld) 0.5 % 0.0 - 2.0 % [facility] Eosinophils (Bld) [#/Vol] 0.2 10*3/uL 0.0 - 0.5 10*3/uL [facility] Eosinophils/100 WBC (Bld) 3.5 % 0.0 - 6.0 % [facility] Erythrocyte distribution width (RBC) [Ratio] 13.9 % 11.5 - 15.0 % [facility] Hematocrit (Bld) [Volume fraction] 34.3 % Low 40.0 - 52.0 % [facility] Hemoglobin (Bld) [Mass/Vol] 11.3 g/dL Low 13.0 - 18.0 g/dL [facility] Immature granulocytes (Bld) [#/Vol] 0.0 10*3/uL NINF - 0.1 10*3/uL [facility] Immature granulocytes/100 WBC (Bld) 0.7 % 0.0 - 2.0 % [facility] Interpretation and review of laboratory results Abnormal [facility] Lymphocytes (Bld) [#/Vol] 1.7 10*3/uL 1.0 - 4.3 10*3/uL [facility] Lymphocytes/100 WBC (Bld) 27.8 % 15.0 - 45.0 % [facility] MCH (RBC) [Entitic mass] 30.1 pg 26.0 - 34.0 pg [facility] MCHC (RBC) [Mass/Vol] 32.9 % 30.5 - 36.0 % [facility] MCV (RBC) [Entitic vol] 91.5 fL 77.0 - 99.0 fL [facility] Monocytes (Bld) [#/Vol] 0.5 10*3/uL 0.0 - 0.9 10*3/uL [facility] Monocytes/100 WBC (Bld) 7.4 % 5.0 - 13.0 % [facility] Neutrophils (Bld) [#/Vol] 3.6 10*3/uL 1.8 - 7.5 10*3/uL [facility] Neutrophils/100 WBC (Bld) 60.1 % 38.0 - 82.0 % [facility] Nucleated RBC/100 WBC (Bld) [Ratio] 0.0 % [facility] Platelet mean volume (Bld) [Entitic vol] 9.3 fL 9.0 - 12.7 fL [facility] Platelets (Bld) [#/Vol] 123 10*3/uL Low 140 - 440 10*3/uL [facility] RBC (Bld) [#/Vol] 3.75 10*6/uL Low 4.40 - 5.9 0 10*6/uL [facility] WBC (Bld) [#/Vol] 6.1 10*3/uL 3.6 - 10.7 10*3/uL [facility] CBC WITH AUTO DIFFERENTIALon 04-26-2024 Basophils (Bld) [#/Vol] 0.0 10*3/uL Normal 0.0-0.2 [facility] Comment on above: Performed By: #### L [id number] ####Senior Telecommunications Technician: TRESSA SANTIZO ([phone])[facility] ([facility])[address] [place] [address] Basophils/100 WBC (Bld) 0.5 % Normal 0.0-2.0 [facility] Comment on above: Performed By: #### L [id number] ####Senior Telecommunications Technician: TRESSA SANTIZO ([phone])[facility] ([facility])[address] [place] [address] Eosinophils (Bld) [#/Vol] 0.2 10*3/uL Normal 0.0-0.5 [facility] Comment on above: Performed By: #### L [id number] ####Senior Telecommunications Technician: TRESSA SANTIZO ([phone])[facility] ([facility])[address] Eosinophils/100 WBC (Bld) 3.5 % Normal 0.0-6.0 [facility] Comment on above: Performed By: #### L [id number] ####Senior Telecommunications Technician: TRESSA SANTIZO ([phone])[facility] ([facility])[address] [place] [address] Erythrocyte distribution width (RBC) [Ratio] 13.9 % Normal 11.5-15.0 [facility] Comment on above: Performed By: #### L [id number] ####Senior Telecommunications Technician: TRESSA DARLYN ([id number])[facility] [place] (SBHLAB)[address] Hematocrit (Bld) [Volume fraction] 34.3 % Low 40.0-52.0 [facility] Comment on above: Performed By: #### L [id number] ####Senior Telecommunications Technician: TRESSA DARLYN ([phone])[facility] ([facility])[address] Hemoglobin (Bld) [Mass/Vol] 11.3 g/dL Low 13.0-18.0 [facility] Comment on above: Performed By: #### L [id number] ####Senior Telecommunications Technician: TRESSA SANTIZO ([phone])[facility] ([facility])[address] [place] [address] IMMATURE GRANS % 0.7 % Normal 0.0-2.0 [facility] Comment on above: Performed By: #### L [id number] ####Senior Telecommunications Technician: TRESSA JONESScarJAVY ([phone])[facility] ([facility])[address] [place] [address] IMMATURE GRANS ABSOLUTE 0.0 10*3/uL Normal <0.1 [facility] Comment on above: Performed By: #### L [id number] ####Senior Telecommunications Technician: TRESSA CHRISJAVY ([phone])[facility] (SB[facility])[address] [place] [address] Lymphocytes (Bld) [#/Vol] 1.7 10*3/uL Normal 1.0-4.3 [facility] Comment on above: Performed By: #### L [id number] ####Senior Telecommunications Technician: TRESSA CHRISJAVY ([phone])[facility] (SB[facility])[address] [place] [address] Lymphocytes/100 WBC (Bld) 27.8 % Normal 15.0-45.0 [facility] Comment on above: Performed By: #### L [id number] ####Senior Telecommunications Technician: TRESSA JONESScarJAVY ([phone])[facility] [place] (SB[facility]AB)[address] MCH (RBC) [Entitic mass] 30.1 pg Normal 26.0-34.0 [facility] Comment on above: Performed By: #### L [id number] ####Senior Telecommunications Technician: TRESSA DARLYN ([phone])[facility] ([facility])[address] MCHC 32.9 % Normal 30.5-36.0 [facility] Comment on above: Performed By: #### L [id number] ####Senior Telecommunications Technician: TRESSA DARLYN ([phone])[facility] ([facility])[address] [place] [address] MCV (RBC) [Entitic vol] 91.5 fL Normal 77.0-99.0 [facility] Comment on above: Performed By: #### L [id number] ####Senior Telecommunications Technician: TRESSA CHRISJAVY ([phone])[facility] ([facility])[address] Monocytes (Bld) [#/Vol] 0.5 10*3/uL Normal 0.0-0.9 [facility] Comment on above: Performed By: #### L [id number] ####Senior Telecommunications Technician: TRESSA SANTIZO ([phone])[facility] ([facility])[address] Monocytes/100 WBC (Bld) 7.4 % Normal 5.0-13.0 [facility] Comment on above: Performed By: #### L [id number] ####Senior Telecommunications Technician: TRESSA SANTIZO ([phone])[facility] ([facility])[address] NEUTROPHILS ABSOLUTE 3.6 10*3/uL Normal 1.8-7.5 [facility] Comment on above: Performed By: #### L [id number] ####Senior Telecommunications Technician: TRESSARAY SANTIZO ([phone])[facility]ITAL[facility] ([facility])[address] Neutrophils/100 WBC (Bld) 60.1 % Normal 38.0-82.0 [facility] Comment on above: Performed By: #### L [id number] ####Senior Telecommunications Technician: TRESSA SANTIZO ([phone])[facility] ([facility])[address] NRBC 0.0 /100 WBCs Normal 0.0-2.0 [facility] Comment on above: Performed By: #### L [id number] ####Senior Telecommunications Technician: TRESSA SANTIZO ([phone])[facility] ([facility])[address] Platelet mean volume (Bld) [Entitic vol] 9.3 fL Normal 9.0-12.7 [facility] Comment on above: Performed By: #### L [id number] ####Senior Telecommunications Technician: TRESSARAY SANTIZO ([phone])[facility] ([facility])[address] Platelets (Bld) [#/Vol] 123 10*3/uL Low 140-440 [facility] Comment on above: Performed By: #### L [id number] ####Senior Telecommunications Technician: TRESSA DARLYN ([phone])[facility] ([facility])[address] RBC (Bld) [#/Vol] 3.75 10*6/uL Low 4.40-5.90 [facility] Comment on above: Performed By: #### L [id number] ####Senior Telecommunications Technician: TRESSA DARLYN ([phone])[facility] ([facility])[address] WBC (Bld) [#/Vol] 6.1 10*3/uL Normal 3.6-10.7 [facility] Comment on above: Performed By: #### L [id number] ####Senior Telecommunications Technician: TRESSA SANTIZO ([phone])[facility] (SBHLAB)[address] [place] [address] [place] IDNon 04-26-2024 IDN Normal [facility] IDN Normal [facility] Laboratory - Chemistry and C hemistry - challengeon 04-26-2024 Glucose [Mass/Vol] 102 mg/dL High 70 - 100 mg/dL [facility] Glucose [Mass/Vol] 91 mg/dL 70 - 100 mg/dL [facility] Glucose [Mass/Vol] 107 mg/dL High 70 - 100 mg/dL [facility] Glucose [Mass/Vol] 99 mg/dL 70 - 100 mg/dL [facility] No Panel Informationon 04-26 Interpretation and review of laboratory results Abnormal [facility] by: [facility], [address] [place] [address] CLIA ID: [id number] [facility] Interpretation and review of laboratory results Normal [facility] Performed by: [facility], [address] [place] [address] CLIA ID: [id number] [facility] Interpretation and review of laboratory results Abnormal [facility] Performed by: [facility], [address] [place] [address] CLIA ID: [id number] [facility] Interpretation and review of laboratory results Normal [facility] Performed by: [facility], [address] [place] [address] CLIA ID: [id number] [facility] Nursing Noteon 04-26-2024 Nursing Note Normal [facility] Progress Noteon 04-26-2024 Progress Note Normal [facility] Progress Note Normal [facility] Progress Note Normal [facility] Progress Note Normal [facility] BASIC METABOLIC PANELon Anion gap [Moles/Vol] 6 mmol/L Normal 3-13 [facility] Comment on above: Performed By: #### L [id number] ####Senior Telecommunications Technician: TRESSA SANTIZO ([phone])[facility] (SBHLAB)[address] Calcium [Mass/Vol] 9.2 mg/dL Normal 8.4-10.4 [facility] Comment on above: Performed By: #### L AB15 ####Senior Telecommunications Technician: TRESSA SANTIZO ([phone])[facility] ([facility])[address] Chloride [Moles/Vol] 100 mmol/L Normal 98-107 [facility] Comment on above: Performed By: #### L AB15 ####Senior Telecommunications Technician: TRESSA SANTIZO ([id number])[facility] [place] ([facility])[address] CO2 [Moles/Vol] 25 mmol/L Normal 22-30 [facility] Comment on above: Performed By: #### L AB15 ####Senior Telecommunications Technician: TRESSA SANTIZO ([phone])[facility] ([facility])[address] Creatinine [Mass/Vol] 0.89 mg/dL Normal 0.66-1.25 [facility] Comment on above: Performed By: #### L AB15 ####Senior Telecommunications Technician: TRESSA SANTIZO ([phone])[facility] ([facility])[address] GLOMERULAR FILTRATION RATE ML/MIN/1.73 SQ M.PREDICTED >90.0 Normal >60.0 [facility] Comment on above: Result Comment: Calc ulation based on the Chronic Kidney Disease Epidemiology Collaboration (CKD-EPI) equation refit without adjustment for race Performed By: #### L AB15 ####Senior Telecommunications Technician: TRESSA SANTIZO ([phone])[facility] [place] (SB[facility])[address] [place] [address] [place] Glucose [Mass/Vol] 114 mg/dL High 70-100 [facility] Comment on above: Performed By: #### L AB15 ####Senior Telecommunications Technician: TRESSA SANTIZO ([phone])[facility] ([facility])[address] Potassium [Moles/Vol] 4.0 mmol/L Normal 3.5-5.1 [facility] Comment on above: Performed By: #### L AB15 ####Senior Telecommunications Technician: TRESSA SANTIZO ([phone])[facility] (SBHLAB)[address] Sodium [Moles/Vol] 131 mmol/L Low 135-145 [facility] Comment on above: Performed By: #### L AB15 ####Senior Telecommunications Technician: TRESSA SANTIZO ([phone])[facility] (SBHLAB)[address] Urea nitrogen [Mass/Vol] 10 mg/dL Normal 9-20 [facility] Comment on above: Performed By: #### L AB15 ####Senior Telecommunications Technician: TRESSA CHRISJAVY ([phone])[facility] (SBHLAB)[address] [place] [address] Basic metabolic 1998 panelon 04-25-2024 Anion gap [Moles/Vol] 6 mmol/L 3 - 13 mmol/L [facility] Calcium [Mass/Vol] 9.2 mg/dL 8.4 - 10. 4 mg/dL [facility] Chloride [Moles/Vol] 100 mmol/L 98 - 10 7 mmol/L [facility] CO2 [Moles/Vol] 25 mmol/L 22 - 30 mmol/L [facility] Creatinine [Mass/Vol] 0.89 mg/dL 0.66 - 1.25 mg/dL [facility] GFR/1.73 sq M.predicted MDRD (S/P/Bld) [Vol rate/Area] - PINF [facility] Comment on above: Calculation based on the Chronic Kidney Disease Epidemiology Collaboration (CKD-EPI) equation refit without adjustment for race Glucose [Mass/Vol] 114 mg/dL High 70 - 100 mg/dL [facility] Interpretation and review of laboratory results Abnormal [facility] Potassium [Moles/Vol] 4.0 mmol/L 3.5 - 5.1 mmol/L [facility] Sodium [Moles/Vol] 131 mmol/L Low 135 - 145 mmol/L [facility] Urea nitrogen [Mass/Vol] 10 mg/dL 9 - 20 mg/dL [facility] CARECOORDon 04-25-2024 CARECOORD Normal [facility] CBC W Auto Differential pane l (Bld)Ordered By: Philip Medrano on 04-25-2024 Erythrocyte distribution width (RBC) [Ratio] 14.1 % 11.5 - 15.0 % [facility] Hematocrit (Bld) [Volume fraction] 35.6 % Low 40.0 - 52.0 % [facility] Hemoglobin (Bld) [Mass/Vol] 11.7 g/dL Low 13.0 - 18.0 g/dL [facility] Interpretation and review of laboratory results Abnormal [facility] MCH (RBC) [Entitic mass] 30.2 pg 26.0 - 34.0 pg [facility] MCHC (RBC) [Mass/Vol] 32.9 % 30.5 - 36.0 % [facility] MCV (RBC) [Entitic vol] 91.8 fL 77.0 - 99.0 fL [facility] Platelet mean volume (Bld) [Entitic vol] 8.7 fL Low 9.0 - 12.7 fL [facility] Platelets (Bld) [#/Vol] 127 10*3/uL Low 140 - 440 10*3/uL [facility] RBC (Bld) [#/Vol] 3.88 10*6/uL Low 4.40 - 5.9 0 10*6/uL [facility] WBC (Bld) [#/Vol] 8.4 10*3/uL 3.6 - 10.7 10*3/uL [facility] CBC WITH AUTO DIFFERENTIALon 04-25-2024 Erythrocyte distribution width (RBC) [Ratio] 14.1 % Normal 11.5-15.0 [facility] Comment on above: Performed By: #### L [id number], [id number] ####Senior Telecommunications Technician: TRESSA SANTIZO ([phone])[facility] ([facility])[address] [place] [address] Hematocrit (Bld) [Volume fraction] 35.6 % Low 40.0-52.0 [facility] Comment on above: Performed By: #### L [id number], [id number] ####Senior Telecommunications Technician: TRESSA SANTIZO ([phone])[facility] (SBHLAB)[address] Hemoglobin (Bld) [Mass/Vol] 11.7 g/dL Low 13.0-18.0 [facility] Comment on above: Performed By: #### L [id number], [id number] ####Senior Telecommunications Technician: TRESSA SANTIZO ([id number])[facility] (SBHLAB)[address] MCH (RBC) [Entitic mass] 30.2 pg Normal 26.0-34.0 [facility] Comment on above: Performed By: #### L [id number], [id number] ####Senior Telecommunications Technician: TRESSA CHRISJAVY ([phone])[facility] (HLAB)[address] MCHC 32.9 % Normal 30.5-36.0 [facility] Comment on above: Performed By: #### L [id number], [id number] ####Senior Telecommunications Technician: TRESSA SANTIZO ([phone])[facility] (SBHLAB)[address] MCV (RBC) [Entitic vol] 91.8 fL Normal 77.0-99.0 [facility] Comment on above: Performed By: #### L [id number], [id number] ####Senior Telecommunications Technician: TRESSA SANTIZO ([id number])[facility] (SBHLAB)[address] Platelet mean volume (Bld) [Entitic vol] 8.7 fL Low 9.0-12.7 [facility] Comment on above: Performed By: #### L [id number], [id number] ####Senior Telecommunications Technician: TRESSA SANTIZO ([phone])[facility] ([facility])[address] Platelets (Bld) [#/Vol] 127 10*3/uL Low 140-440 [facility] Comment on above: Performed By: #### L [id number], [id number] ####Senior Telecommunications Technician: TRESSA SANTIZO ([id number])[facility] (SB[facility])[address] [place] [address] RBC (Bld) [#/Vol] 3.88 10*6/uL Low 4.40-5.90 [facility] Comment on above: Performed By: #### L [id number], [id number] ####Senior Telecommunications Technician: TRESSA SANTIZO ([phone])[facility] (SB[facility])[address] [place] [address] WBC (Bld) [#/Vol] 8.4 10*3/uL Normal 3.6-10.7 [facility] Comment on above: Performed By: #### L [id number], [id number] ####Senior Telecommunications Technician: TRESSA SANTIZO ([phone])[facility] (SB[facility])[address] [place] [address] Consulton 04-25-2024 Consult Normal [facility] Consult Normal [facility] IDNon 04-25-2024 IDN Normal [facility] Laboratory - Chemistry and C hemistry - challengeon 04-25-2024 Glucose [Mass/Vol] 105 mg/dL High 70 - 100 mg/dL [facility] Glucose [Mass/Vol] 128 mg/dL High 70 - 100 mg/dL [facility] Glucose [Mass/Vol] 104 mg/dL High 70 - 100 mg/dL [facility] Glucose [Mass/Vol] 110 mg/dL High 70 - 100 mg/dL [facility] Laboratory - Hematology and Cell countson 04-25-2024 Band form neutrophils (Bld) [#/Vol] 0.6 10*3/uL High NINF - 0.0 10*3/uL [facility] Band form neutrophils/100 WBC (Bld) 7 % High NINF - 0 % [facility] Eosinophils (Bld) [#/Vol] 0.2 10*3/uL 0.0 - 0.5 10*3/uL [facility] Eosinophils/100 WBC (Bld) 2 % 0 - 6 % [facility] Lymphocytes (Bld) [#/Vol] 0.2 10*3/uL Low 1.0 - 4.3 10*3/uL [facility] Lymphocytes/100 WBC (Bld) 2 % Low 15 - 45 % [facility] Monocytes (Bld) [#/Vol] 0.1 10*3/uL 0.0 - 0.9 10*3/uL [facility] Monocytes/100 WBC (Bld) 1 % Low 5 - 13 % [facility] Neutrophils (Bld) [#/Vol] 8.0 10*3/uL High 1.8 - 7.5 10*3/uL [facility] RBC morphology finding Nom (Bld) Normal [facility] Segmented neutrophils/100 WBC (Bld) 88 % High 38 - 82 % [facility] MANUAL DIFFERENTIAL (CELLAVI ILIANA)on 04-25-2024 BAND NEUTROPHILS TOTAL PER COUNTED LEUKOCYTES BY MANUAL COUNT 7 Normal [facility] Comment on above: Performed By: #### L [id number], [id number] ####Senior Telecommunications Technician: TRESSA SANTIZO ([phone])[facility] [place] ([facility])[address] [place] [address] BANDS (10*3/UL) IN BLOOD-CELLAVISION 0.6 10*3/uL High <=0.0 [facility] Comment on above: Performed By: #### L [id number], [id number] ####Senior Telecommunications Technician: TRESSA SANTIZO ([phone])[facility] [place] ([facility])[address] [place] [address] [place] BASOPHILS TOTAL PER COUNTED LEUKOCYTES BY MANUAL COUNT Normal [facility] Comment on above: Performed By: #### L [id number], [id number] ####Senior Telecommunications Technician: TRESSA SANTIZO ([phone])[facility] [place] ([facility])[address] [place] [address] [place] BLASTS TOTAL PER COUNTED LEUKOCYTES BY MANUAL COUNT Normal [facility] Comment on above: Performed By: #### L [id number], [id number] ####Senior Telecommunications Technician: TRESSA SANTIZO ([phone])[facility] [place] ([facility])[address] [place] [address] [place] EOSINOPHILS (10*3/UL) IN BLOOD-CELLAVISION 0.2 10*3/uL Normal 0.0-0.5 [facility] Comment on above: Performed By: #### L [id number], [id number] ####Senior Telecommunications Technician: TRESSA CHRISJAVY ([phone])[facility] [place] ([facility])[address] [place] [address] [place] EOSINOPHILS TOTAL PER COUNTED LEUKOCYTES BY MANUAL COUNT 2 High 0-1 [facility] Comment on above: Performed By: #### L [id number], [id number] ####Senior Telecommunications Technician: TRESSA OJEDACER ([phone])[facility] [place] ([facility])[address] [place] [address] [place] EOSINOPHILS/100 LEUKOCYTES IN BLOOD-CELLAVISION 2 % Normal 0-6 [facility] Comment on above: Performed By: #### L [id number], [id number] ####Senior Telecommunications Technician: TRESSA CHRISJAVY ([phone])[facility] ([facility])[address] [place] [address] [place] LYMPHOCYTES (10*3/UL) IN BLOOD-CELLAVISION 0.2 10*3/uL Low 1.0-4.3 [facility] Comment on above: Performed By: #### L [id number], [id number] ####Senior Telecommunications Technician: TRESSA SANTIZO ([phone])[facility] [place] ([facility])[address] [place] [address] [place] LYMPHOCYTES TOTAL PER COUNTED LEUKOCYTES BY MANUAL COUNT 2 Normal [facility] Comment on above: Performed By: #### L [id number], [id number] ####Senior Telecommunications Technician: TRESSA CHRISJAVY ([phone])[facility] [place] ([facility])[address] [place] [address] [place] LYMPHOCYTES/100 LEUKOCYTES IN BLOOD-CELLAVISION 2 % Low 15-45 [facility] Comment on above: Performed By: #### L [id number], [id number] ####Senior Telecommunications Technician: TRESSA SANTIZO ([phone])[facility] [place] ([facility])[address] [place] [address] [place] METAMYELOCYTES TOTAL PER COUNTED LEUKOCYTES BY MANUAL COUNT Normal [facility] Comment on above: Performed By: #### L [id number], [id number] ####Senior Telecommunications Technician: TRESSA SANTIZO ([phone])[facility] [place] ([facility])[address] [place] [address] [place] MONOCYTES (10*3/UL) IN BLOOD-CELLAVISION 0.1 10*3/uL Normal 0.0-0.9 [facility] Comment on above: Performed By: #### L [id number], [id number] ####Senior Telecommunications Technician: TRESSA SANTIZO ([phone])[facility] [place] ([facility])[address] MONOCYTES TOTAL PER COUNTED LEUKOCYTES BY MANUAL COUNT 1 Normal [facility] Comment on above: Performed By: #### L [id number], [id number] ####Senior Telecommunications Technician: TRESSA SANTIZO ([phone])[facility] [place] ([facility])[address] [place] [address] [place] MONOCYTES/100 LEUKOCYTES IN BLOOD-JOSE 1 % Low 5-13 [facility] Comment on above: Performed By: #### L [id number], [id number] ####Senior Telecommunications Technician: TRESSA SANTIZO ([phone])[facility] [place] ([facility])[address] [place] [address] [place] MYELOCYTES COUNTED BY MANUAL COUNT Normal [facility] Comment on above: Performed By: #### L [id number], [id number] ####Senior Telecommunications Technician: TRESSA SANTIZO ([phone])[facility] [place] ([facility])[address] [place] [address] [place] NEUTROPHILS BAND FORM/100 LEUKOCYTES IN BLOOD-CELLAVISI 7 % High <=0 [facility] Comment on above: Performed By: #### L [id number], [id number] ####Senior Telecommunications Technician: TRESSA [phone])[facility] ([facility])[address] [place] [address] [place] NEUTROPHILS TOTAL PER COUNTED LEUKOCYTES BY MANUAL COUNT 88 [facility] Comment on above: Performed By: #### L [id number], [id number] ####Senior Telecommunications Technician: TRESSA SANTIZO ([phone])[facility] [place] ([facility])[address] [place] [address] [place] PROMYELOCYTES TOTAL PER COUNTED LEUKOCYTES BY MANUAL COUNT Normal [facility] Comment on above: Performed By: #### L [id number], [id number] ####Senior Telecommunications Technician: TRESSA SANTIZO ([phone])[facility] [place] ([facility])[address] RBC MORPHOLOGY IN BLOOD Normal [facility] Comment on above: Performed By: #### L [id number], [id number] ####Senior Telecommunications Technician: TRESSA SANTIZO ([phone])[facility] [place] ([facility])[address] [place] [address] [place] SEGMENTED NEUTROPHILS (10*3/UL) IN BLOOD-CELLAVISION 8.0 10*3/uL High 1.8-7.5 [facility] Comment on above: Performed By: #### L [id number], [id number] ####Senior Telecommunications Technician: TRESSA SANTIZO ([phone])[facility] [place] ([facility])[address] [place] [address] [place] SEGMENTED NEUTROPHILS/100 LEUKOCYTES-CE 88 % High 38-82 [facility] Comment on above: Performed By: #### L [id number], [id number] ####Senior Telecommunications Technician: TRESSA SANTIZO ([phone])[facility] [place] ([facility])[address] [place] [address] [place] UNCLASSIFIED CELLS TOTAL PER COUNTED LEUKOCYTES BY MANUAL COUNT [facility] Comment on above: Performed By: #### L [id number], [id number] ####Senior Telecommunications Technician: TRESSA SANTIZO ([phone])[facility] [place] ([facility])[address] [place] [address] VARIANT LYMPHOCYTES TOTAL PER COUNTED LEUKOCYTES BY MANUAL COUNT Normal [facility] Comment on above: Performed By: #### L [id number], [id number] ####Senior Telecommunications Technician: TRESSA SANTIZO ([phone])[facility] ([facility])[address] [place] [address] No Panel Informationon 04-25 Interpretation and review of laboratory results Abnormal [facility] Performed by: [facility], [address] [place] [address] CLIA ID: [id number] [facility] Interpretation and review of laboratory results Abnormal [facility] Performed by: [facility], [address] [place] [address] CLIA ID: [id number] [facility] Interpretation and review of laboratory results Abnormal [facility] Performed by: [facility], [address] [place] [address] CLIA ID: [id number] [facility] Interpretation and review of laboratory results Abnormal [facility] Performed by: [facility], [address] [place] [address] CLIA ID: [id number] [facility] Atypical Lymphocytes Manual [facility] Bands Manual 7 [facility] Basophils Manual [facility] Blasts Manual [facility] Eosinophils Manual 2 High 0 - 1 [facility] Interpretation and review of laboratory results Abnormal [facility] Lymphocytes Manual 2 [facility] Metamyelocytes Manual [facility] Monocytes Manual 1 [facility] Myelocytes Manual [facility] Neutrophils Manual 88 [facility] Promyelocytes Manual [facility] Unclassified Cells, Manual [facility] Nursing Noteon 04-25-2024 Nursing Note Normal [facility] Progress Noteon 04-25-2024 Progress Note Normal [facility] Progress Note Normal [facility] Progress Note Normal [facility] Progress Note Pt had a couple epis odes of emesis- yellow and undigested food. Zofran given and vitals assessed. Pt expresses that this is common for him to have emesis like this. Pt reported feeling better after IV Zofran was given. Normal [facility] CARECOORDon 04-24-2024 CARECOORD Normal [facility] CBC W Auto Differential pane l (Bld)Ordered By: Michael Quinn on 04-24-2024 Basophils (Bld) [#/Vol] 0.0 10*3/uL 0.0 - 0.2 10*3/uL [facility] Basophils/100 WBC (Bld) 0.9 % 0.0 - 2.0 % [facility] Eosinophils (Bld) [#/Vol] 0.1 10*3/uL 0.0 - 0.5 10*3/uL [facility] Eosinophils/100 WBC (Bld) 2.2 % 0.0 - 6.0 % [facility] Erythrocyte distribution width (RBC) [Ratio] 14.2 % 11.5 - 15.0 % [facility] Hematocrit (Bld) [Volume fraction] 33.1 % Low 40.0 - 52.0 % [facility] Hemoglobin (Bld) [Mass/Vol] 10.9 g/dL Low 13.0 - 18.0 g/dL [facility] Immature granulocytes (Bld) [#/Vol] 0.0 10*3/uL NINF - 0.1 10*3/uL [facility] Immature granulocytes/100 WBC (Bld) 0.2 % 0.0 - 2.0 % [facility] Interpretation and review of laboratory results Abnormal [facility] Lymphocytes (Bld) [#/Vol] 1.4 10*3/uL 1.0 - 4.3 10*3/uL [facility] Lymphocytes/100 WBC (Bld) 30.3 % 15.0 - 45.0 % [facility] MCH (RBC) [Entitic mass] 30.1 pg 26.0 - 34.0 pg [facility] MCHC (RBC) [Mass/Vol] 32.9 % 30.5 - 36.0 % [facility] MCV (RBC) [Entitic vol] 91.4 fL 77.0 - 99.0 fL [facility] Monocytes (Bld) [#/Vol] 0.3 10*3/uL 0.0 - 0.9 10*3/uL [facility] Monocytes/100 WBC (Bld) 7.6 % 5.0 - 13.0 % [facility] Neutrophils (Bld) [#/Vol] 2.6 10*3/uL 1.8 - 7.5 10*3/uL [facility] Neutrophils/100 WBC (Bld) 58.8 % 38.0 - 82.0 % [facility] Nucleated RBC/100 WBC (Bld) [Ratio] 0.0 % [facility] Platelet mean volume (Bld) [Entitic vol] 8.7 fL Low 9.0 - 12.7 fL [facility] Platelets (Bld) [#/Vol] 137 10*3/uL Low 140 - 440 10*3/uL [facility] RBC (Bld) [#/Vol] 3.62 10*6/uL Low 4.40 - 5.9 0 10*6/uL [facility] WBC (Bld) [#/Vol] 4.5 10*3/uL 3.6 - 10.7 10*3/uL [facility] CBC WITH AUTO DIFFERENTIALon 04-24-2024 Basophils (Bld) [#/Vol] 0.0 10*3/uL Normal 0.0-0.2 [facility] Comment on above: Performed By: #### L [id number] ####Senior Telecommunications Technician: TRESSA SANTIZO ([phone])[facility] [place] [address] Basophils/100 WBC (Bld) 0.9 % Normal 0.0-2.0 [facility] Comment on above: Performed By: #### L [id number] ####Senior Telecommunications Technician: TRESSA SANTIZO ([phone])[facility] [place] [address] [place] Eosinophils (Bld) [#/Vol] 0.1 10*3/uL Normal 0.0-0.5 [facility] Comment on above: Performed By: #### L [id number] ####Senior Telecommunications Technician: TRESSA SANTIZO ([phone])[facility])[address] Eosinophils/100 WBC (Bld) 2.2 % Normal 0.0-6.0 [facility] Comment on above: Performed By: #### L [id number] ####Senior Telecommunications Technician: TRESSA SANTIZO ([phone])[facility] [place] ([facility])[address] Erythrocyte distribution width (RBC) [Ratio] 14.2 % Normal 11.5-15.0 [facility] Comment on above: Performed By: #### L [id number] ####Senior Telecommunications Technician: TRESSA SANTIZO ([phone])[facility] Hematocrit (Bld) [Volume fraction] 33.1 % Low 40.0-52.0 [facility] Comment on above: Performed By: #### L [id number] ####Senior Telecommunications Technician: TRESSA SANTIZO ([phone])[facility] ([facility])[address] [place] [address] Hemoglobin (Bld) [Mass/Vol] 10.9 g/dL Low 13.0-18.0 [facility] Comment on above: Performed By: #### L [id number] ####Senior Telecommunications Technician: TRESSA SANTIZO ([phone])[facility] IMMATURE GRANS % 0.2 % Normal 0.0-2.0 [facility] Comment on above: Performed By: #### L [id number] ####Senior Telecommunications Technician: TRESSA SANTIZO ([phone])[facility] IMMATURE GRANS ABSOLUTE 0.0 10*3/uL Normal <0.1 [facility] Comment on above: Performed By: #### L [id number] ####Senior Telecommunications Technician: TRESSA SANTIZO ([phone])[facility])[address] Lymphocytes (Bld) [#/Vol] 1.4 10*3/uL Normal 1.0-4.3 [facility] Comment on above: Performed By: #### L [id number] ####Senior Telecommunications Technician: TRESSA SANTIZO ([phone])[facility] [place] ([facility])[address] Lymphocytes/100 WBC (Bld) 30.3 % Normal 15.0-45.0 [facility] Comment on above: Performed By: #### L [id number] ####Senior Telecommunications Technician: TRESSA SANTIZO ([phone])[facility] ([facility])[address] MCH (RBC) [Entitic mass] 30.1 pg Normal 26.0-34.0 [facility] Comment on above: Performed By: #### L [id number] ####Senior Telecommunications Technician: TRESSA SANTIZO ([phone])[facility] [place] ([facility])[address] MCHC 32.9 % Normal 30.5-36.0 [facility] Comment on above: Performed By: #### L [id number] ####Senior Telecommunications Technician: TRESSA SANTIZO ([phone])[facility] ([facility])[address] MCV (RBC) [Entitic vol] 91.4 fL Normal 77.0-99.0 [facility] Comment on above: Performed By: #### L [id number] ####Senior Telecommunications Technician: TRESSA SANTIZO ([phone])[facility] ([facility])[address] [place] [address] [place] Monocytes (Bld) [#/Vol] 0.3 10*3/uL Normal 0.0-0.9 [facility] Comment on above: Performed By: #### L [id number] ####Senior Telecommunications Technician: TRESSA SANTIZO ([phone])[facility] ([facility])[address] Monocytes/100 WBC (Bld) 7.6 % Normal 5.0-13.0 [facility] Comment on above: Performed By: #### L [id number] ####Senior Telecommunications Technician: TRESSA SANTIZO ([phone])[facility] [place] ([facility])[address] NEUTROPHILS ABSOLUTE 2.6 10*3/uL Normal 1.8-7.5 [facility] Comment on above: Performed By: #### L [id number] ####Senior Telecommunications Technician: TRESSA SANTIZO ([phone])[facility] [place] ([facility])[address] Neutrophils/100 WBC (Bld) 58.8 % Normal 38.0-82.0 [facility] Comment on above: Performed By: #### L [id number] ####Senior Telecommunications Technician: TRESSA SANTIZO ([phone])[facility] [place] ([facility])[address] NRBC 0.0 /100 WBCs Normal 0.0-2.0 [facility] Comment on above: Performed By: #### L [id number] ####Senior Telecommunications Technician: TRESSA SANTIZO ([phone])[facility] [place] ([facility])[address] Platelet mean volume (Bld) [Entitic vol] 8.7 fL Low 9.0-12.7 [facility] Comment on above: Performed By: #### L [id number] ####Senior Telecommunications Technician: TRESSA SANTIZO ([phone])[facility] [place] ([facility])[address] [place] [address] [place] Platelets (Bld) [#/Vol] 137 10*3/uL Low 140-440 [facility] Comment on above: Performed By: #### L [id number] ####Senior Telecommunications Technician: TRESSA SANTIZO ([phone])[facility] [place] ([facility])[address] [place] [address] [place] RBC (Bld) [#/Vol] 3.62 10*6/uL Low 4.40-5.90 [facility] Comment on above: Performed By: #### L [id number] ####Senior Telecommunications Technician: TRESSA SANTIZO ([phone])[facility] [place] ([facility])[address] WBC (Bld) [#/Vol] 4.5 10*3/uL Normal 3.6-10.7 [facility] Comment on above: Performed By: #### L [id number] ####Senior Telecommunications Technician: TRESSA SANTIZO ([phone])[facility] [place] ([facility])[address] COMPREHENSIVE METABOLIC PANE Peter 04-24-2024 Albumin [Mass/Vol] 3.5 g/dL Normal 3.5-5.0 [facility] Comment on above: Performed By: #### L AB17 ####Senior Telecommunications Technician: TRESSA SANTIZO ([phone])[facility] [place] ([facility])[address] ALP [Catalytic activity/Vol] 53 U/L Normal 38-126 [facility] Comment on above: Performed By: #### L AB17 ####Senior Telecommunications Technician: TRESSA SANTIZO ([phone])[facility] [place] ([facility])[address] ALT [Catalytic activity/Vol] 21 U/L Normal 0-49 [facility] Comment on above: Performed By: #### L AB17 ####Senior Telecommunications Technician: TRESSA SANTIZO ([phone])[facility] [place] ([facility])[address] Anion gap [Moles/Vol] 6 mmol/L Normal 3-13 [facility] Comment on above: Performed By: #### L AB17 ####Senior Telecommunications Technician: TRESSA SANTIZO ([phone])[facility] [place] ([facility])[address] AST [Catalytic activity/Vol] 23 U/L Normal 15-46 [facility] Comment on above: Performed By: #### L AB17 ####Senior Telecommunications Technician: TRESSA SANTIZO ([phone])[facility] [place] ([facility])[address] Bilirubin [Mass/Vol] 0.6 mg/dL Normal 0.2-1.3 [facility] Comment on above: Performed By: #### L AB17 ####Senior Telecommunications Technician: TRESSA SANTIZO ([phone])[facility] [place] ([facility])[address] Calcium [Mass/Vol] 8.8 mg/dL Normal 8.4-10.4 [facility] Comment on above: Performed By: #### L AB17 ####Senior Telecommunications Technician: TRESSA SANTIZO ([phone])[facility] [place] ([facility])[address] Chloride [Moles/Vol] 100 mmol/L Normal 98-107 [facility] Comment on above: Performed By: #### L AB17 ####Senior Telecommunications Technician: TRESSA SANTIZO ([phone])[facility] [place] ([facility])[address] CO2 [Moles/Vol] 26 mmol/L Normal 22-30 [facility] Comment on above: Performed By: #### L AB17 ####Senior Telecommunications Technician: TRESSA SANTIZO ([phone])[facility] [place] ([facility])[address] Creatinine [Mass/Vol] 0.87 mg/dL Normal 0.66-1.25 [facility] Comment on above: Performed By: #### L AB17 ####Senior Telecommunications Technician: TRESSA SANTIZO ([phone])[facility] [place] ([facility])[address] GLOMERULAR FILTRATION RATE ML/MIN/1.73 SQ M.PREDICTED >90.0 Normal >60.0 [facility] Comment on above: Result Comment: Calc ulation based on the Chronic Kidney Disease Epidemiology Collaboration (CKD-EPI) equation refit without adjustment for race Performed By: #### L AB17 ####Senior Telecommunications Technician: TRESSA SANTIZO ([phone])[facility] [place] ([facility])[address] Glucose [Mass/Vol] 147 mg/dL High 70-100 [facility] Comment on above: Performed By: #### L AB17 ####Senior Telecommunications Technician: TRESSA SANTIZO ([phone])[facility] ([facility])[address] Potassium [Moles/Vol] 4.0 mmol/L Normal 3.5-5.1 [facility] Comment on above: Performed By: #### L AB17 ####Senior Telecommunications Technician: TRESSA SANTIZO ([phone])[facility] ([facility])[address] Protein [Mass/Vol] 6.2 g/dL Low 6.3-8.2 [facility] Comment on above: Performed By: #### L AB17 ####Senior Telecommunications Technician: TRESSA SANTIZO ([id number])[facility] ([facility])[address] Sodium [Moles/Vol] 132 mmol/L Low 135-145 [facility] Comment on above: Performed By: #### L AB17 ####Senior Telecommunications Technician: TRESSA SANTIZO ([phone])[facility] ([facility])[address] Urea nitrogen [Mass/Vol] 7 mg/dL Low 9-20 [facility] Comment on above: Performed By: #### L AB17 ####Senior Telecommunications Technician: TRESSA SANTIZO ([phone])[facility] ([facility])[address] Comprehensive metabolic 1998 panelon 04-24-2024 Albumin [Mass/Vol] 3.5 g/dL 3.5 - 5.0 g/dL [facility] ALP [Catalytic activity/Vol] 53 U/L 38 - 126 U/L [facility] ALT [Catalytic activity/Vol] 21 U/L 0 - 49 U/L [facility] Anion gap [Moles/Vol] 6 mmol/L 3 - 13 mmol/L [facility] AST [Catalytic activity/Vol] 23 U/L 15 - 46 U/L [facility] Bilirubin [Mass/Vol] 0.6 mg/dL 0.2 - 1 .3 mg/dL [facility] Calcium [Mass/Vol] 8.8 mg/dL 8.4 - 10. 4 mg/dL [facility] Chloride [Moles/Vol] 100 mmol/L 98 - 10 7 mmol/L [facility] CO2 [Moles/Vol] 26 mmol/L 22 - 30 mmol/L [facility] Creatinine [Mass/Vol] 0.87 mg/dL 0.66 - 1.25 mg/dL [facility] GFR/1.73 sq M.predicted MDRD (S/P/Bld) [Vol rate/Area] - PINF [facility] Comment on above: Calculation based on the Chronic Kidney Disease Epidemiology Collaboration (CKD-EPI) equation refit without adjustment for race Glucose [Mass/Vol] 147 mg/dL High 70 - 100 mg/dL [facility] Interpretation and review of laboratory results Abnormal [facility] Potassium [Moles/Vol] 4.0 mmol/L 3.5 - 5.1 mmol/L [facility] Protein [Mass/Vol] 6.2 g/dL Low 6.3 - 8.2 g/dL [facility] Sodium [Moles/Vol] 132 mmol/L Low 135 - 145 mmol/L [facility] Urea nitrogen [Mass/Vol] 7 mg/dL Low 9 - 20 mg/dL [facility] IDNon 04-24-2024 IDN Normal [facility] - Chemistry and C hemistry - challengeon 04-24-2024 Glucose [Mass/Vol] 176 mg/dL High 70 - 100 mg/dL [facility] Glucose [Mass/Vol] 98 mg/dL 70 - 100 mg/dL [facility] Glucose [Mass/Vol] 140 mg/dL High 70 - 100 mg/dL [facility] Glucose [Mass/Vol] 119 mg/dL High 70 - 100 mg/dL [facility] No Panel Informationon 04-24 Interpretation and review of laboratory results Abnormal [facility] Performed by: [facility], [address] [place] [address] [place] [address] CLIA ID: [id number] [facility] Interpretation and review of laboratory results Normal [facility]formed by: [facility], [address] [facility] [place], [facility] [address] CLIA ID: [id number] [facility] Interpretation and review of laboratory results Abnormal [facility] Performed by: [facility], [address] [facility] [place], [facility] [address] CLIA ID: [id number] [facility] Interpretation and review of laboratory results Abnormal [facility] Performed by: [facility], [address] [facility] [place], [facility] [address] CLIA ID: [id number] [facility] Nursing Noteon 04-24-2024 Nursing Note Normal [facility] Progress Noteon 04-24-2024 Progress Note Nutrition rescreen completed. Patient assigned a level 1 for nutrition care. Normal [facility] Progress Note Normal [facility] CBC W Auto Differential pane l (Bld)on 04-23-2024 Basophils (Bld) [#/Vol] 0.1 10*3/uL 0.0 - 0.2 10*3/uL [facility] Basophils/100 WBC (Bld) 1.2 % 0.0 - 2.0 % [facility] Eosinophils (Bld) [#/Vol] 0.2 10*3/uL 0.0 - 0.5 10*3/uL [facility] Eosinophils/100 WBC (Bld) 2.0 % 0.0 - 6.0 % [facility] Erythrocyte distribution width (RBC) [Ratio] 13.9 % 11.5 - 15.0 % [facility] Hematocrit (Bld) [Volume fraction] 32.8 % Low 40.0 - 52.0 % [facility] Hemoglobin (Bld) [Mass/Vol] 11.3 g/dL Low 13.0 - 18.0 g/dL [facility] Immature granulocytes (Bld) [#/Vol] 0.0 10*3/uL NINF - 0.1 10*3/uL [facility] Immature granulocytes/100 WBC (Bld) 0.4 % 0.0 - 2.0 % [facility] Interpretation and review of laboratory results Abnormal [facility] Lymphocytes (Bld) [#/Vol] 3.7 10*3/uL 1.0 - 4.3 10*3/uL [facility] Lymphocytes/100 WBC (Bld) 48.2 % High 15.0 - 45.0 % [facility] MCH (RBC) [Entitic mass] 30.4 pg 26.0 - 34.0 pg [facility] MCHC (RBC) [Mass/Vol] 34.5 % 30.5 - 36.0 % [facility] MCV (RBC) [Entitic vol] 88.2 fL 77.0 - 99.0 fL [facility] Monocytes (Bld) [#/Vol] 0.5 10*3/uL 0.0 - 0.9 10*3/uL [facility] Monocytes/100 WBC (Bld) 6.3 % 5.0 - 13.0 % [facility] Neutrophils (Bld) [#/Vol] 3.2 10*3/uL 1.8 - 7.5 10*3/uL [facility] Neutrophils/100 WBC (Bld) 41.9 % 38.0 - 82.0 % [facility] Nucleated RBC/100 WBC (Bld) [Ratio] 0.0 % [facility] Platelet mean volume (Bld) [Entitic vol] 8.5 fL Low 9.0 - 12.7 fL [facility] Platelets (Bld) [#/Vol] 200 10*3/uL 140 - 440 10*3/uL [facility] RBC (Bld) [#/Vol] 3.72 10*6/uL Low 4.40 - 5.9 0 10*6/uL [facility] WBC (Bld) [#/Vol] 7.6 10*3/uL 3.6 - 10.7 10*3/uL [facility] CBC WITH AUTO DIFFERENTIALon 04-23-2024 Basophils (Bld) [#/Vol] 0.1 10*3/uL Normal 0.0-0.2 [facility] Comment on above: Performed By: #### L [id number] ####Senior Telecommunications Technician: TRESSA SANTIZO ([phone])[facility] ([facility])[address] [place] [address] Basophils/100 WBC (Bld) 1.2 % Normal 0.0-2.0 [facility] Comment on above: Performed By: #### L [id number] ####Senior Telecommunications Technician: TRESSA SANTIZO ([phone])[facility] [place] ([facility])[address] [place] [address] Eosinophils (Bld) [#/Vol] 0.2 10*3/uL Normal 0.0-0.5 [facility] Comment on above: Performed By: #### L [id number] ####Senior Telecommunications Technician: TRESSA SANTIZO ([phone])[facility] ([facility])[address] Eosinophils/100 WBC (Bld) 2.0 % Normal 0.0-6.0 [facility] Comment on above: Performed By: #### L [id number] ####Senior Telecommunications Technician: TRESSA SANTIZO ([phone])[facility] ([facility])[address] [place] [address] Erythrocyte distribution width (RBC) [Ratio] 13.9 % Normal 11.5-15.0 [facility] Comment on above: Performed By: #### L [id number] ####Senior Telecommunications Technician: TRESSA SANTIZO ([phone])[facility] ([facility])[address] [place] [address] Hematocrit (Bld) [Volume fraction] 32.8 % Low 40.0-52.0 [facility] Comment on above: Performed By: #### L [id number] ####Senior Telecommunications Technician: TRESSA SANTIZO ([phone])[facility] ([facility])[address] [place] [address] Hemoglobin (Bld) [Mass/Vol] 11.3 g/dL Low 13.0-18.0 [facility] Comment on above: Performed By: #### L [id number] ####Senior Telecommunications Technician: TRESSA SANTIZO ([phone])[facility] ([facility])[address] IMMATURE GRANS % 0.4 % Normal 0.0-2.0 [facility] Comment on above: Performed By: #### L [id number] ####Senior Telecommunications Technician: TRESSA SANTIZO ([phone])[facility] [place] ([facility])[address] IMMATURE GRANS ABSOLUTE 0.0 10*3/uL Normal <0.1 [facility] Comment on above: Performed By: #### L [id number] ####Senior Telecommunications Technician: TRESSA SANTIZO ([phone])[facility]OSPITALTim ([facility]HL[facility])[address] Lymphocytes (Bld) [#/Vol] 3.7 10*3/uL Normal 1.0-4.3 [facility] Comment on above: Performed By: #### L [id number] ####Senior Telecommunications Technician: TRESSA SANTIZO ([phone])[facility]OSPITALTim ([facility])[address] Lymphocytes/100 WBC (Bld) 48.2 % High 15.0-45.0 [facility] Comment on above: Performed By: #### L [id number] ####Senior Telecommunications Technician: TRESSA SANTIZO ([phone])[facility]ITALTim ([facility])[address] MCH (RBC) [Entitic mass] 30.4 pg Normal 26.0-34.0 [facility] Comment on above: Performed By: #### L [id number] ####Senior Telecommunications Technician: TRESSA SANTIZO ([phone])[facility]ITAL[facility] ([facility]HL[facility])[address] MCHC 34.5 % Normal 30.5-36.0 [facility] Comment on above: Performed By: #### L [id number] ####Senior Telecommunications Technician: TRESSA SANTIZO ([phone])[facility]ITAL[facility] ([facility])[address] MCV (RBC) [Entitic vol] 88.2 fL Normal 77.0-99.0 [facility] Comment on above: Performed By: #### L [id number] ####Senior Telecommunications Technician: TRESSA SANTIZO ([phone])[facility] ([facility]HL[facility])[address] Monocytes (Bld) [#/Vol] 0.5 10*3/uL Normal 0.0-0.9 [facility] Comment on above: Performed By: #### L [id number] ####Senior Telecommunications Technician: TRESSA SANTIZO ([phone])[facility] ([facility])[address] Monocytes/100 WBC (Bld) 6.3 % Normal 5.0-13.0 [facility] Comment on above: Performed By: #### L [id number] ####Senior Telecommunications Technician: TRESSA SANTIZO ([phone])[facility] ([facility]HL[facility])[address] NEUTROPHILS ABSOLUTE 3.2 10*3/uL Normal 1.8-7.5 [facility] Comment on above: Performed By: #### L [id number] ####Senior Telecommunications Technician: TRESSA SANTIZO ([phone])[facility] [place] ([facility])[address] Neutrophils/100 WBC (Bld) 41.9 % Normal 38.0-82.0 [facility] Comment on above: Performed By: #### L [id number] ####Senior Telecommunications Technician: TRESSA SANTIZO ([phone])[facility] ([facility])[address] NRBC 0.0 /100 WBCs Normal 0.0-2.0 [facility] Comment on above: Performed By: #### L [id number] ####Senior Telecommunications Technician: TRESSA SANTIZO ([phone])[facility] ([facility])[address] [place] [address] [place] Platelet mean volume (Bld) [Entitic vol] 8.5 fL Low 9.0-12.7 [facility] Comment on above: Performed By: #### L [id number] ####Senior Telecommunications Technician: TRESSA SANTIZO ([phone])[facility] [place] ([facility])[address] Platelets (Bld) [#/Vol] 200 10*3/uL Normal 140-440 [facility] Comment on above: Performed By: #### L [id number] ####Senior Telecommunications Technician: TRESSA SANTIZO ([phone])[facility]ITAL[facility] BEN[facility]ZN ([facility]HLAB)[address] RBC (Bld) [#/Vol] 3.72 10*6/uL Low 4.40-5.90 [facility] Comment on above: Performed By: #### L [id number] ####Senior Telecommunications Technician: TRESSA SANTIZO ([phone])[facility] ([facility]HLAB)[address] WBC (Bld) [#/Vol] 7.6 10*3/uL Normal 3.6-10.7 [facility] Comment on above: Performed By: #### L [id number] ####Senior Telecommunications Technician: TRESSA SANTIZO ([phone])[facility]N ([facility]HLAB)[address] [place] [address] COMPREHENSIVE METABOLIC PANE Peter 04-23-2024 Albumin [Mass/Vol] 3.7 g/dL Normal 3.5-5.0 [facility] Comment on above: Performed By: #### L AB129, LAB17, TUN271, LAB67 ####Senior Telecommunications Technician: TRESSA SANTIZO ([phone])[facility] ([facility]HL[facility])[address] ALP [Catalytic activity/Vol] 49 U/L Normal 38-126 [facility] Comment on above: Performed By: #### L AB129, LAB17, FPS543, LAB67 ####Senior Telecommunications Technician: TRESSA SANTIZO ([phone])[facility] ([facility]HL[facility])[address] ALT [Catalytic activity/Vol] 26 U/L Normal 0-49 [facility] Comment on above: Performed By: #### L AB129, LAB17, ZIV236, LAB67 ####Senior Telecommunications Technician: TRESSA SANTIZO ([phone])[facility] [place] ([facility])[address] [place] [address] [place] Anion gap [Moles/Vol] 13 mmol/L Normal 3-13 [facility] Comment on above: Performed By: #### L AB129, LAB17, HXO987, LAB67 ####Senior Telecommunications Technician: TRESSA SANTIZO ([phone])[facility]ITALA [facility] ([facility]HL[facility])[address] AST [Catalytic activity/Vol] 45 U/L Normal 15-46 [facility] Comment on above: Performed By: #### L AB129, LAB17, MCX919, LAB67 ####Senior Telecommunications Technician: TRESSA SANTIZO ([phone])[facility]ITALA [facility]N ([facility]HL[facility])[address] Bilirubin [Mass/Vol] 0.5 mg/dL Normal 0.2-1.3 [facility] Comment on above: Performed By: #### L AB129, LAB17, FRF438, LAB67 ####Senior Telecommunications Technician: TRESSA SANTIZO ([phone])[facility]ITALA [facility]N ([facility])[address] Calcium [Mass/Vol] 8.5 mg/dL Normal 8.4-10.4 [facility] Comment on above: Performed By: #### L AB129, LAB17, ZSJ428, LAB67 ####Senior Telecommunications Technician: TRESSA SANTIZO ([phone])[facility] [place] ([facility])[address] [place] [address] [place] Chloride [Moles/Vol] 93 mmol/L Low 98-107 [facility] Comment on above: Performed By: #### L AB129, LAB17, FOS989, LAB67 ####Senior Telecommunications Technician: TRESSA SANTIZO ([phone])[facility] ([facility])[address] [place] [address] [place] CO2 [Moles/Vol] 22 mmol/L Normal 22-30 [facility] Comment on above: Performed By: #### L AB129, LAB17, PNH831, LAB67 ####Senior Telecommunications Technician: TRESSA SANTIZO ([phone])[facility]ITAL[facility] ([facility])[address] Creatinine [Mass/Vol] 0.94 mg/dL Normal 0.66-1.25 [facility] Comment on above: Performed By: #### L AB129, LAB17, IQF178, LAB67 ####Senior Telecommunications Technician: TRESSA SANTIZO ([phone])[facility] [place] ([facility])[address] [place] [address] GLOMERULAR FILTRATION RATE ML/MIN/1.73 SQ M.PREDICTED >90.0 Normal >60.0 [facility] Comment on above: Result Comment: Calc ulation based on the Chronic Kidney Disease Epidemiology Collaboration (CKD-EPI) equation refit without adjustment for race Performed By: #### L AB129, LAB17, EOP598, LAB67 ####Senior Telecommunications Technician: TRESSA SANTIZO ([phone])[facility] ([facility])[address] [place] [address] [place] Glucose [Mass/Vol] 127 mg/dL High 70-100 [facility] Comment on above: Performed By: #### L AB129, LAB17, JNE673, LAB67 ####Senior Telecommunications Technician: TRESSA SANTIZO ([phone])[facility] ([facility])[address] [place] [address] [place] Potassium [Moles/Vol] 3.4 mmol/L Low 3.5-5.1 [facility] Comment on above: Performed By: #### L AB129, LAB17, PHP558, LAB67 ####Senior Telecommunications Technician: TRESSA SANTIZO ([phone])[facility] ([facility])[address] Protein [Mass/Vol] 6.3 g/dL Normal 6.3-8.2 [facility] Comment on above: Performed By: #### L AB129, LAB17, KJL295, LAB67 ####Senior Telecommunications Technician: TRESSA SANTIZO ([phone])[facility] ([facility]HL[facility])[address] Sodium [Moles/Vol] 128 mmol/L Low 135-145 [facility] Comment on above: Performed By: #### L AB129, LAB17, NRH227, LAB67 ####Senior Telecommunications Technician: TRESSA SANTIZO ([phone])[facility] ([facility])[address] Urea nitrogen [Mass/Vol] 5 mg/dL Low 9-20 [facility] Comment on above: Performed By: #### L AB129, LAB17, AFE173, LAB67 ####Senior Telecommunications Technician: TRESSA CHRISJAVY ([phone])[facility] HERNANDE[facility] (SBHLAB)[address] Cobalamin (Vitamin B12) [Mas s/Vol]on 04-23-2024 Interpretation and review of laboratory results Normal [facility] Comprehensive metabolic 1998 panelon 04-23-2024 Albumin [Mass/Vol] 3.7 g/dL 3.5 - 5.0 g/dL [facility] ALP [Catalytic activity/Vol] 49 U/L 38 - 126 U/L [facility] ALT [Catalytic activity/Vol] 26 U/L 0 - 49 U/L [facility] Anion gap [Moles/Vol] 13 mmol/L 3 - 13 mmol/L [facility] AST [Catalytic activity/Vol] 45 U/L 15 - 46 U/L [facility] Bilirubin [Mass/Vol] 0.5 mg/dL 0.2 - 1 .3 mg/dL [facility] Calcium [Mass/Vol] 8.5 mg/dL 8.4 - 10. 4 mg/dL [facility] Chloride [Moles/Vol] 93 mmol/L Low 98 - 10 7 mmol/L [facility] CO2 [Moles/Vol] 22 mmol/L 22 - 30 mmol/L [facility] Creatinine [Mass/Vol] 0.94 mg/dL 0.66 - 1.25 mg/dL [facility] GFR/1.73 sq M.predicted MDRD (S/P/Bld) [Vol rate/Area] - PINF [facility] Comment on above: Calculation based on the Chronic Kidney Disease Epidemiology Collaboration (CKD-EPI) equation refit without adjustment for race Glucose [Mass/Vol] 127 mg/dL High 70 - 100 mg/dL [facility] Interpretation and review of laboratory results Abnormal [facility] Potassium [Moles/Vol] 3.4 mmol/L Low 3.5 - 5.1 mmol/L [facility] Protein [Mass/Vol] 6.3 g/dL 6.3 - 8.2 g/dL [facility] Sodium [Moles/Vol] 128 mmol/L Low 135 - 145 mmol/L [facility] Urea nitrogen [Mass/Vol] 5 mg/dL Low 9 - 20 mg/dL [facility] ECG 12-LEADon 04-23-2024 ECG 12-LEAD IMPRESSION: Sinus tachycardia RBBB and LAFB Electronically Signed On 04-23-2024 06:02:53 EDT by Marjan Doran Normal [facility] HEMOGLOBIN A1Con 04-23-2024 Glucose [Mass/Vol] 88 mg/dL Normal [facility] Comment on above: Order Comment: If no t done within the last 3 mos Performed By: #### L AB90 ####Senior Telecommunications Technician: TRESSA SANTIZO ([phone])[facility] ([facility])[address] [place] [address] HbA1c (Bld) [Mass fraction] 4.7 % Normal <5.7 [facility] Comment on above: Order Comment: If no t done within the last 3 mos Result Comment: Norm al less than 5.7%Prediabetes 5.7% to 6.4%Diabetes 6.5% or higher--HgbA1C levels may not be accurate in patients who have renal disease, received recent blood transfusions, are anemic, or who have dyshemoglobinemia. Performed By: #### L AB90 ####Senior Telecommunications Technician: TRESSA SANTIZO ([phone])[facility] ([facility])[address] [place] [address] Laboratory - Chemistry and C hemistry - challengeon 04-23-2024 Glucose [Mass/Vol] 142 mg/dL High 70 - 100 mg/dL [facility] Glucose [Mass/Vol] 133 mg/dL High 70 - 100 mg/dL [facility] Glucose [Mass/Vol] 187 mg/dL High 70 - 100 mg/dL [facility] Glucose [Mass/Vol] 124 mg/dL High 70 - 100 mg/dL [facility] Magnesium [Mass/Vol] 1.4 mg/dL Low 1.6 - 2 .3 mg/dL [facility] Average glucose Estimated from glycated hemoglobin (Bld) [Mass/Vol] 88 mg/dL [facility] Cobalamin (Vitamin B12) [Mass/Vol] 684 pg/mL 239 - 931 pg/mL [facility] TSH Qn 4.014 m[IU]/L [facility] Glucose [Mass/Vol] 148 mg/dL High 70 - 100 mg/dL [facility] Laboratory - Hematology and Cell countson 04-23-2024 HbA1c (Bld) [Mass fraction] 4.7 % NINF - 5.7 % [facility] Comment on above: Normal less than 5.7 % Prediabetes 5.7% to 6.4% Diabetes 6.5% or higher --HgbA1C levels may not be accurate in patients who have renal disease, received recent blood transfusions, are anemic, or who have dyshemoglobinemia. MAGNESIUMon 04-23-2024 Magnesium [Mass/Vol] 1.4 mg/dL Low 1.6-2.3 [facility] Comment on above: Performed By: #### L AB129, LAB17, DKV590, LAB67 ####Senior Telecommunications Technician: TRESSA SANTIZO ([phone])[facility] (SBHLAB)[address] [place] [address] Magnesium [Mass/Vol]on 04-23 Interpretation and review of laboratory results Abnormal [facility] No Panel Informationon 04-23 Interpretation and review of laboratory results Abnormal [facility] Performed by: [facility], [address] [place] [address] CLIA ID: [id number] [facility] Interpretation and review of laboratory results Abnormal [facility] Performed by: [facility], [address] [facility] [address] CLIA ID: [id number] [facility] Interpretation and review of laboratory results Abnormal [email or web address] Performed by: [facility], [address] [facility] [address] CLIA ID: [id number] [email or web address] [facility] Interpretation and review of laboratory results Abnormal [email or web address] Performed by: [facility], [address] [facility] [address] CLIA ID: [id number] [facility] Sinus tachycardia RBBB and LAFB Electronically Signed On 04-23-2024 06:02:53 EDT by Marjan Doran CV Marjan Paredes MD - 04/23/2024 IMPRESSION: Sinus tachycardia RBBB and LAFB Electronically Signed On 04-23-2024 06:02:53 EDT by Marjan Doran [email or web address] Interpretation and review of laboratory results Abnormal [email or web address] Performed by: [facility], [address] [facility] [address] [address] ID: [id number] [email or web address] No Panel InformationOrdered By: Marjan Doran on 04-23-2024 P [place] 41 degrees [employer] Work Phone: [place] Interval 169 ms [facility] Work Phone: QRS [place] -48 degrees [employer] Work Phone: QRSD Interval 147 ms [employer] Work Phone: QT Interval 396 ms [employer] Work Phone: QTC Interval 513 ms [facility] Work Phone: T Wave [place] -4 degrees [employer] Work Phone: [employer] Work Phone: Nursing Noteon 04-23-2024 Nursing Note Normal [facility] Progress Noteon 04-23-2024 Progress Note Normal [facility] Progress Note Normal [facility] Progress Note Normal [facility] THYROID STIMULATING HORMONEo n 04-23-2024 THYROID STIMULATING HORMONE 4.014 uIU/mL Normal 0.465-4.680 [facility] Comment on above: Performed By: #### L AB129, LAB17, AAB790, LAB67 ####Senior Telecommunications Technician: TRESSA SANTIZO ([phone])[facility]IOH[facility]PITALTim (SBHLAB)[address] TSH Qnon 04-23-2024 Interpretation and review of laboratory results Normal [facility] VITAMIN B12on 04-23-2024 Cobalamin (Vitamin B12) [Mass/Vol] 684 pg/mL Normal 239-931 [facility] Comment on above: Performed By: #### L AB129, LAB17, [id number], LAB67 ####Senior Telecommunications Technician: TRESSA SANTIZO ([phone])[facility] (SBHLAB)[address] Vital signsOrdered By: Jaylon Doran on 04-23-2024 Heart rate 101 /min bpm [facility] Work Phone: ACETAMINOPHEN LEVELon 2023 Acetaminophen [Mass/Vol] ug/mL Low 10.0-30.0 [facility] Comment on above: Performed By: #### L AB43, LAB17, LAB46 ####Senior Telecommunications Technician: TRESSA SANTIZO ([phone])[facility] ([facility])[address] [place] [address] CBC W Auto Differential pane l (Bld)Ordered By: Lorin Carmona on 04-22-2024 Erythrocyte distribution width (RBC) [Ratio] 13.7 % 11.5 - 15.0 % [facility] Hematocrit (Bld) [Volume fraction] 36.5 % Low 40.0 - 52.0 % [facility] Hemoglobin (Bld) [Mass/Vol] 12.9 g/dL Low 13.0 - 18.0 g/dL [facility] Interpretation and review of laboratory results Abnormal [facility] MCH (RBC) [Entitic mass] 30.4 pg 26.0 - 34.0 pg [facility] MCHC (RBC) [Mass/Vol] 35.3 % 30.5 - 36.0 % [facility] MCV (RBC) [Entitic vol] 86.1 fL 77.0 - 99.0 fL [facility] Platelet mean volume (Bld) [Entitic vol] 8.2 fL Low 9.0 - 12.7 fL [facility] Platelets (Bld) [#/Vol] 269 10*3/uL 140 - 440 10*3/uL [facility] RBC (Bld) [#/Vol] 4.24 10*6/uL Low 4.40 - 5.9 0 10*6/uL [facility] WBC (Bld) [#/Vol] 11.2 10*3/uL High 3.6 - 10.7 10*3/uL [facility] CBC WITH AUTO DIFFERENTIALon 04-22-2024 Erythrocyte distribution width (RBC) [Ratio] 13.7 % Normal 11.5-15.0 [facility] Comment on above: Performed By: #### L [id number], [id number] ####Senior Telecommunications Technician: TRESSA SANTIZO ([phone])[facility] ([facility])[address] [place] [address] Hematocrit (Bld) [Volume fraction] 36.5 % Low 40.0-52.0 [facility] Comment on above: Performed By: #### L [id number], [id number] ####Senior Telecommunications Technician: TRESSA SANTIZO ([phone])[facility] ([facility])[address] [place] [address] Hemoglobin (Bld) [Mass/Vol] 12.9 g/dL Low 13.0-18.0 [facility] Comment on above: Performed By: #### L [id number], [id number] ####Senior Telecommunications Technician: TRESSA SANTIZO ([phone])[facility] ([facility])[address] [place] [address] MCH (RBC) [Entitic mass] 30.4 pg Normal 26.0-34.0 [facility] Comment on above: Performed By: #### L [id number], [id number] ####Senior Telecommunications Technician: TRESSA SANTIZO ([phone])[facility] ([facility])[address] [place] [address] MCHC 35.3 % Normal 30.5-36.0 [facility] Comment on above: Performed By: #### L [id number], [id number] ####Senior Telecommunications Technician: TRESSA SANTIZO ([phone])[facility] [place] (SBHLAB)[address] MCV (RBC) [Entitic vol] 86.1 fL Normal 77.0-99.0 [facility] Comment on above: Performed By: #### L [id number], [id number] ####Senior Telecommunications Technician: TRESSA SANTIZO ([phone])[facility] [place] ([facility])[address] Platelet mean volume (Bld) [Entitic vol] 8.2 fL Low 9.0-12.7 [facility] Comment on above: Performed By: #### L [id number], [id number] ####Senior Telecommunications Technician: TRESSA SANTIZO ([id number])[facility] [place] ([facility])[address] Platelets (Bld) [#/Vol] 269 10*3/uL Normal 140-440 [facility] Comment on above: Performed By: #### L [id number], [id number] ####Senior Telecommunications Technician: TRESSA SANTIZO ([phone])[facility] [place] ([facility])[address] RBC (Bld) [#/Vol] 4.24 10*6/uL Low 4.40-5.90 [facility] Comment on above: Performed By: #### L [id number], [id number] ####Senior Telecommunications Technician: TRESSA SANTIZO ([phone])[facility] [place] (SB[facility])155 [place] [address] [place] WBC (Bld) [#/Vol] 11.2 10*3/uL High 3.6-10.7 [facility] Comment on above: Performed By: #### L [id number], [id number] ####Senior Telecommunications Technician: TRESSA SANTIZO ([phone])[facility] [place] ([facility])[address] COMPLETE URINALYSISon 2023 BILIRUBIN, TOTAL PRESENCE IN URINE Negative Normal Negative [facility] Comment on above: Performed By: #### L [id number] ####Senior Telecommunications Technician: TRESSA SANTIZO ([phone])[facility] Clarity (U) Clear Normal Clear [facility] Comment on above: Performed By: #### L [id number] ####Senior Telecommunications Technician: TRESSA SANTIZO ([phone])[facility] Color (U) Colorless Normal Lt. Yellow [facility] Comment on above: Performed By: #### L [id number] ####Senior Telecommunications Technician: TRESSA SANTIZO ([phone])[facility] ([facility])[address] GLUCOSE (MG/DL) IN URINE Normal Normal Normal (<70) [facility] Comment on above: Performed By: #### L [id number] ####Senior Telecommunications Technician: TRESSA SANTIZO ([phone])[facility] ([facility])[address] HEMOGLOBIN PRESENCE IN URINE Negative Normal Negative [facility] Comment on above: Performed By: #### L [id number] ####Senior Telecommunications Technician: TRESSA SANTIZO ([phone])[facility] Ketones Ql (U) Negative Normal Negative [facility] Comment on above: Performed By: #### L [id number] ####Senior Telecommunications Technician: TRESSA SANTIZO ([phone])[facility] ([facility])[address] LEUKOCYTE ESTERASE PRESENCE IN URINE BY TEST STRIP Negative Normal Negative [facility] Comment on above: Performed By: #### L [id number] ####Senior Telecommunications Technician: TRESSA SANTIZO ([phone])[facility] [place] [facility] NITRITE PRESENCE IN URINE Negative Normal Negative [facility] Comment on above: Performed By: #### L AB347 ####Senior Telecommunications Technician: TRESSA SANTIZO ([phone])[facility] [place] [facility] pH (U) 5.5 [pH] Normal 5.0-8.0 [facility] Comment on above: Performed By: #### L [id number] ####Senior Telecommunications Technician: TRESSA SANTIZO ([phone])[facility] ([facility])[address] Protein (U) [Mass/Vol] Negative Normal Negative [facility] Comment on above: Performed By: #### L [id number] ####Senior Telecommunications Technician: TRESSA SANTIZO ([phone])[facility] ([facility])[address] Specific gravity (U) [Rel density] 1.003 Low 1.005-1.030 [facility] Comment on above: Performed By: #### L [id number] ####Senior Telecommunications Technician: TRESSA SANTIZO ([phone])[facility] ([facility])[address] [place] [address] UROBILINOGEN (MG/DL) IN URINE Normal Normal Normal (0-1) [facility] Comment on above: Performed By: #### L [id number] ####Senior Telecommunications Technician: TRESSA SANTIZO ([phone])[facility] ([facility])[address] COMPREHENSIVE METABOLIC PANE Peter 04-22-2024 Albumin [Mass/Vol] 4.6 g/dL Normal 3.5-5.0 [facility] Comment on above: Performed By: #### L AB43, LAB17, LAB46 ####Senior Telecommunications Technician: TRESSA SANTIZO ([phone])[facility] ([facility])[address] [place] [address] [place] ALP [Catalytic activity/Vol] 73 U/L Normal 38-126 [facility] Comment on above: Performed By: #### Popeye AB43, LAB17, LAB46 ####Senior Telecommunications Technician: TRESSA SANTIZO ([phone])[facility] [place] ([facility])155 [place] [address] [place] ALT [Catalytic activity/Vol] 31 U/L Normal 0-49 [facility] Comment on above: Performed By: #### Popeye AB43, LAB17, LAB46 ####Senior Telecommunications Technician: TRESSA SANTIZO ([phone])[facility] [place] ([facility])[address] Anion gap [Moles/Vol] 18 mmol/L High 3-13 [facility] Comment on above: Performed By: #### Popeye DERAS43, LAB17, LAB46 ####Senior Telecommunications Technician: TRESSA SANTIZO ([phone])[facility] [place] ([facility])155 [place] [address] [place] AST [Catalytic activity/Vol] 53 U/L High 15-46 [facility] Comment on above: Performed By: #### Popeye DERAS43, LAB17, LAB46 ####Senior Telecommunications Technician: TRESSA SANTIZO ([phone])[facility] [place] ([facility])155 [place] [address] [place] Bilirubin [Mass/Vol] 0.5 mg/dL Normal 0.2-1.3 [facility] Comment on above: Performed By: #### Popeye AB43, LAB17, LAB46 ####Senior Telecommunications Technician: TRESSA SANTIZO ([phone])[facility] [place] ([facility])[address] [place] [address] [place] Calcium [Mass/Vol] 9.4 mg/dL Normal 8.4-10.4 [facility] Comment on above: Performed By: #### L AB43, LAB17, LAB46 ####Senior Telecommunications Technician: TRESSA SANTIZO ([phone])[facility] [place] ([facility])[address] Chloride [Moles/Vol] 89 mmol/L Low 98-107 [facility] Comment on above: Performed By: #### Popeye AB43, LAB17, LAB46 ####Senior Telecommunications Technician: TRESSA SANTIZO ([phone])[facility] ([facility])[address] CO2 [Moles/Vol] 20 mmol/L Low 22-30 [facility] Comment on above: Performed By: #### Popeye AB43, LAB17, LAB46 ####Senior Telecommunications Technician: TRESSA SANTIZO ([phone])[facility])[address] Creatinine [Mass/Vol] 0.78 mg/dL Normal 0.66-1.25 [facility] Comment on above: Performed By: #### Popeye PERALES, LAB17, LAB46 ####Senior Telecommunications Technician: TRESSA SANTIZO ([phone])[facility] (HLAB)[address] GLOMERULAR FILTRATION RATE ML/MIN/1.73 SQ M.PREDICTED >90.0 Normal >60.0 [facility] Comment on above: Result Comment: Calc ulation based on the Chronic Kidney Disease Epidemiology Collaboration (CKD-EPI) equation refit without adjustment for race Performed By: #### Popeye DERAS43, LAB17, LAB46 ####Senior Telecommunications Technician: TRESSA SANTIZO ([phone])[facility] ([facility])[address] Glucose [Mass/Vol] 92 mg/dL Normal 70-100 [facility] Comment on above: Performed By: #### Popeye DERAS43, LAB17, LAB46 ####Senior Telecommunications Technician: TRESSA SANTIZO ([phone])[facility] (HLAB)[address] Potassium [Moles/Vol] 4.2 mmol/L Normal 3.5-5.1 [facility] Comment on above: Performed By: #### L AB43, LAB17, LAB46 ####Senior Telecommunications Technician: TRESSA DARLYN ([phone])[facility] ([facility])[address] Protein [Mass/Vol] 7.5 g/dL Normal 6.3-8.2 [facility] Comment on above: Performed By: #### L AB43, LAB17, LAB46 ####Senior Telecommunications Technician: TRESSA SANTIZO ([phone])[facility] ([facility])[address] Sodium [Moles/Vol] 127 mmol/L Low 135-145 [facility] Comment on above: Performed By: #### L AB43, LAB17, LAB46 ####Senior Telecommunications Technician: TRESSA CHRISJAVY ([phone])[facility] ([facility])[address] [place] [address] Urea nitrogen [Mass/Vol] 5 mg/dL Low 9-20 [facility] Comment on above: Performed By: #### L AB43, LAB17, LAB46 ####Senior Telecommunications Technician: TRESSA JONESALEKSANDR ([phone])[facility] ([facility])[address] [place] [address] Comprehensive metabolic 1998 panelon 04-22-2024 Albumin [Mass/Vol] 4.6 g/dL 3.5 - 5.0 g/dL [facility] ALP [Catalytic activity/Vol] 73 U/L 38 - 126 U/L [facility] ALT [Catalytic activity/Vol] 31 U/L 0 - 49 U/L [facility] Anion gap [Moles/Vol] 18 mmol/L High 3 - 13 mmol/L [facility] AST [Catalytic activity/Vol] 53 U/L High 15 - 46 U/L [facility] Bilirubin [Mass/Vol] 0.5 mg/dL 0.2 - 1 .3 mg/dL [facility] Calcium [Mass/Vol] 9.4 mg/dL 8.4 - 10. 4 mg/dL [facility] Chloride [Moles/Vol] 89 mmol/L Low 98 - 10 7 mmol/L [facility] CO2 [Moles/Vol] 20 mmol/L Low 22 - 30 mmol/L [facility] Creatinine [Mass/Vol] 0.78 mg/dL 0.66 - 1.25 mg/dL [facility] GFR/1.73 sq M.predicted MDRD (S/P/Bld) [Vol rate/Area] - PINF [facility] Comment on above: Calculation based on the Chronic Kidney Disease Epidemiology Collaboration (CKD-EPI) equation refit without adjustment for race Glucose [Mass/Vol] 92 mg/dL 70 - 100 mg/dL [facility] Potassium [Moles/Vol] 4.2 mmol/L 3.5 - 5.1 mmol/L [facility] Protein [Mass/Vol] 7.5 g/dL 6.3 - 8.2 g/dL [facility] Sodium [Moles/Vol] 127 mmol/L Low 135 - 145 mmol/L [facility] Urea nitrogen [Mass/Vol] 5 mg/dL Low 9 - 20 mg/dL [facility] DRUGS OF ABUSEon 04-22-2024 AMPHETAMINE SCREEN Negative Normal [facility] Comment on above: Performed By: #### L [id number], [id number], [id number] ####Senior Telecommunications Technician: TRESSA SANTIZO ([phone])[facility] ([facility])[address] [place] [address] BARBITURATES SCREEN Positive Normal [facility] Comment on above: Performed By: #### L [id number], [id number], [id number] ####Senior Telecommunications Technician: TRESSA SANTIZO ([phone])[facility] ([facility])[address] [place] [address] BENZODIAZEPINE SCREEN Negative Normal [facility] Comment on above: Performed By: #### L [id number], [id number], [id number] ####Senior Telecommunications Technician: TRESSA SANTIZO ([phone])[facility] ([facility])[address] [place] [address] COCAINE METAB. SCREEN Negative Normal [facility] Comment on above: Performed By: #### L [id number], [id number], [id number] ####Senior Telecommunications Technician: TRESSA SANTIZO ([phone])[facility] [place] ([facility])[address] METHADONE SCREEN Negative Normal [facility] Comment on above: Performed By: #### L [id number], [id number], [id number] ####Senior Telecommunications Technician: TRESSA SANTIZO ([phone])[facility] [place] ([facility])[address] OPIATES SCREEN Negative Normal [facility] Comment on above: Performed By: #### L [id number], [id number], [id number] ####Senior Telecommunications Technician: TRESSA SANTIZO ([phone])[facility] ([facility])[address] OXYCODONE SCREEN Positive Normal [facility] Comment on above: Performed By: #### L [id number], [id number], [id number] ####Senior Telecommunications Technician: TRESSA SANTIZO ([phone])[facility] ([facility])[address] PHENCYCLIDINE SCREEN Negative Normal [facility] Comment on above: Result Comment: ORDE [...] under separate order. Performed By: #### L [id number], [id number], [id number] ####Senior Telecommunications Technician: TRESSA SANTIZO ([phone])[facility] ([facility])[address] ED Nursing Noteon 04-22-2024 ED Nursing Note Normal [facility] ED Nursing Note Normal [facility] ED Nursing Note Detox rules signed b y patient. Witnessed by ACC RN. Ruperto Cortez RN 04/22/244 Normal [facility] ED Provider Noteon ED Provider Note Normal [facility] ETHANOLon 04-22-2024 ETHANOL IN SER/PLAS 0.309 g/dL Critically high 0.000-0.010 [facility] Comment on above: Result Comment: ORDE R COMMENTS:NOTE: This result is for medical treatment only. Analysis performed using non-forensic procedures. Performed By: #### L AB43, LAB17, LAB46 ####Senior Telecommunications Technician: TRESSA SANTIZO ([phone])[facility] ([facility])[address] [place] [address] Ethanol (Bld) [Mass/Vol]Orde red By: Marlyn Levine on 04-22-2024 Ethanol [Mass/Vol] 0.309 g/dL Critically high 0.000 - 0.010 g/dL [facility] Interpretation and review of laboratory results Abnormal [facility] Laboratory - Chemistry and C hemistry - challengeOrdered By: Daniel Allen on 04-22-2024 Osmolality [Osmolality] 333 mosm/kg High [facility] - Chemistry and C hemistry - challengeon 04-22-2024 Glucose [Mass/Vol] 73 mg/dL 70 - 100 mg/dL [facility] Sodium (24H U) [Mass/Vol] 7 mmol/L Low 30 - 90 mmol/L [facility] - Drug toxicology on 04-22-2024 Amphetamines Screen method >1000 ng/mL Ql (U) Negative [facility] Barbiturates Screen method >200 ng/mL Ql (U) Positive [facility] Benzodiazepines Ql (U) Negative [facility] Methadone Screen Ql (U) Negative [facility] Opiates Screen Ql (U) Negative [facility] oxyCODONE Ql (U) Positive [facility] Phencyclidine Ql (U) Negative [facility] Acetaminophen [Mass/Vol] ug/mL Low 10.0 - 30.0 ug/mL [facility] - Hematology and Cell countson 04-22-2024 Basophils (Bld) [#/Vol] 0.2 10*3/uL 0.0 - 0.2 10*3/uL [facility] Basophils/100 WBC (Bld) 2 % 0 - 2 % [facility] Eosinophils (Bld) [#/Vol] 0.3 10*3/uL 0.0 - 0.5 10*3/uL [facility] Eosinophils/100 WBC (Bld) 3 % 0 - 6 % [facility] Lymphocytes (Bld) [#/Vol] 4.3 10*3/uL 1.0 - 4.3 10*3/uL [facility] Lymphocytes/100 WBC (Bld) 38 % 15 - 45 % [facility] Monocytes (Bld) [#/Vol] 0.1 10*3/uL 0.0 - 0.9 10*3/uL [facility] Monocytes/100 WBC (Bld) 1 % Low 5 - 13 % [facility] Neutrophils (Bld) [#/Vol] 6.3 10*3/uL 1.8 - 7.5 10*3/uL [facility] RBC morphology finding Nom (Bld) Normal [facility] Segmented neutrophils/100 WBC (Bld) 56 % 38 - 82 % [facility] - Microbiology an d Antimicrobial susceptibilityOrdered By: Aylin Moran on 04-22-2024 SARS-CoV-2 (COVID-19) Ag IA.rapid Ql (Resp) Negative Negative [facility] Comment on above: A negative result do es not rule out the possibility of SARS-CoV-2 infection. NAAT-based methods should be considered for symptomatic patients presenting greater than seven days after onset of symptoms. Method: Lateral flow immunoassay. Fact sheets for healthcare providers and patients can be found at the following sites: https://www.fda.gov/media/048869/download https://www.fda.gov/media/965988/download MANUAL DIFFERENTIAL (CELLAVI ILIANA)on 04-22-2024 BAND NEUTROPHILS TOTAL PER COUNTED LEUKOCYTES BY MANUAL COUNT Normal [facility] Comment on above: Performed By: #### L [id number], [id number] ####Senior Telecommunications Technician: TRESSA SANTIZO ([phone])[facility] ([facility])[address] [place] [address] BASOPHILS (10*3/UL) IN BLOOD-CELLAVISION 0.2 10*3/uL Normal 0.0-0.2 [facility] Comment on above: Performed By: #### L [id number], [id number] ####Senior Telecommunications Technician: TRESSA SANTIZO ([phone])[facility] [place] ([facility])[address] [place] [address] [place] BASOPHILS TOTAL PER COUNTED LEUKOCYTES BY MANUAL COUNT 2 Normal [facility] Comment on above: Performed By: #### L [id number], [id number] ####Senior Telecommunications Technician: TRESSA SANTIZO ([phone])[facility] [place] ([facility])[address] [place] [address] [place] BASOPHILS/100 LEUKOCYTES IN BLOOD-CELLAVISION 2 % Normal 0-2 [facility] Comment on above: Performed By: #### L [id number], [id number] ####Senior Telecommunications Technician: TRESSA CHRISJAVY ([phone])[facility] [place] ([facility])[address] [place] [address] [place] BLASTS TOTAL PER COUNTED LEUKOCYTES BY MANUAL COUNT [facility] Comment on above: Performed By: #### L [id number], [id number] ####Senior Telecommunications Technician: TRESSA SANTIZO ([phone])[facility] [place] ([facility])[address] [place] [address] [place] EOSINOPHILS (10*3/UL) IN BLOOD-CELLAVISION 0.3 10*3/uL Normal 0.0-0.5 [facility] Comment on above: Performed By: #### L [id number], [id number] ####Senior Telecommunications Technician: TRESSA CHRISJAVY ([phone])[facility] [place] ([facility])[address] [place] [address] [place] EOSINOPHILS TOTAL PER COUNTED LEUKOCYTES BY MANUAL COUNT 3 High 0-1 [facility] Comment on above: Performed By: #### L [id number], [id number] ####Senior Telecommunications Technician: TRESSA SANTIZO ([phone])[facility] [place] ([facility])[address] [place] [address] [place] EOSINOPHILS/100 LEUKOCYTES IN BLOOD-CELLAVISION 3 % Normal 0-6 [facility] Comment on above: Performed By: #### L [id number], [id number] ####Senior Telecommunications Technician: TRESSA SANTIZO ([phone])[facility] [place] ([facility])[address] [place] [address] [place] LYMPHOCYTES (10*3/UL) IN BLOOD-CELLAVISION 4.3 10*3/uL Normal 1.0-4.3 [facility] Comment on above: Performed By: #### L [id number], [id number] ####Senior Telecommunications Technician: TRESSA SANTIZO ([phone])[facility] [place] ([facility])[address] LYMPHOCYTES TOTAL PER COUNTED LEUKOCYTES BY MANUAL COUNT 38 Normal [facility] Comment on above: Performed By: #### L [id number], [id number] ####Senior Telecommunications Technician: TRESSA SANTIZO ([phone])[facility] [place] ([facility])[address] [place] [address] [place] LYMPHOCYTES/100 LEUKOCYTES IN BLOOD-CELLAVISION 38 % Normal 15-45 [facility] Comment on above: Performed By: #### L [id number], [id number] ####Senior Telecommunications Technician: TRESSA SANTIZO ([phone])[facility] [place] ([facility])[address] METAMYELOCYTES TOTAL PER COUNTED LEUKOCYTES BY MANUAL COUNT [facility] Comment on above: Performed By: #### L [id number], [id number] ####Senior Telecommunications Technician: TRESSA CHRISJAVY ([phone])[facility] [place] ([facility])[address] [place] [address] [place] MONOCYTES (10*3/UL) IN BLOOD-CELLAVISION 0.1 10*3/uL Normal 0.0-0.9 [facility] Comment on above: Performed By: #### L [id number], [id number] ####Senior Telecommunications Technician: TRESSA SANTIZO ([phone])[facility] [place] ([facility])[address] [place] [address] [place] MONOCYTES TOTAL PER COUNTED LEUKOCYTES BY MANUAL COUNT 1 Normal [facility] Comment on above: Performed By: #### L [id number], [id number] ####Senior Telecommunications Technician: TRESSA SANTIZO ([phone])[facility] [place] ([facility])[address] [place] [address] [place] MONOCYTES/100 LEUKOCYTES IN BLOOD-JOSE 1 % Low 5-13 [facility] Comment on above: Performed By: #### L [id number], [id number] ####Senior Telecommunications Technician: TRESSA SANTIZO ([phone])[facility] [place] ([facility])[address] [place] [address] [place] MYELOCYTES COUNTED BY MANUAL COUNT Normal [facility] Comment on above: Performed By: #### L [id number], [id number] ####Senior Telecommunications Technician: TRESSA SANTIZO ([phone])[facility] [place] ([facility])[address] [place] [address] [place] NEUTROPHILS TOTAL PER COUNTED LEUKOCYTES BY MANUAL COUNT 56 Normal [facility] Comment on above: Performed By: #### L [id number], [id number] ####Senior Telecommunications Technician: TRESSA SANTIZO ([phone])[facility] [place] ([facility])[address] [place] [address] [place] PROMYELOCYTES TOTAL PER COUNTED LEUKOCYTES BY MANUAL COUNT Normal [facility] Comment on above: Performed By: #### L [id number], [id number] ####Senior Telecommunications Technician: TRESSA SANTIZO ([phone])[facility] [place] ([facility])[address] [place] [address] [place] RBC MORPHOLOGY IN BLOOD Normal [facility] Comment on above: Performed By: #### L [id number], [id number] ####Senior Telecommunications Technician: TRESSA SANTIZO ([phone])[facility] [place] ([facility])[address] [place] [address] [place] SEGMENTED NEUTROPHILS (10*3/UL) IN BLOOD-CELLAVISION 6.3 10*3/uL Normal 1.8-7.5 [facility] Comment on above: Performed By: #### L [id number], [id number] ####Senior Telecommunications Technician: TRESSA SANTIZO ([phone])[facility] ([facility])[address] [place] [address] SEGMENTED NEUTROPHILS/100 LEUKOCYTES-CE 56 % Normal 38-82 [facility] Comment on above: Performed By: #### L [id number], [id number] ####Senior Telecommunications Technician: TRESSA SANTIZO ([phone])[facility] ([facility])[address] [place] [address] UNCLASSIFIED CELLS TOTAL PER COUNTED LEUKOCYTES BY MANUAL COUNT Normal [facility] Comment on above: Performed By: #### L [id number], [id number] ####Senior Telecommunications Technician: TRESSA SANTIZO ([phone])[facility] ([facility])[address] [place] [address] VARIANT LYMPHOCYTES TOTAL PER COUNTED LEUKOCYTES BY MANUAL COUNT Normal [facility] Comment on above: Performed By: #### L [id number], [id number] ####Senior Telecommunications Technician: TRESSA SANTIZO ([phone])[facility] ([facility])[address] [place] [address] No Panel InformationOrdered By: Daniel Allen on 04-22-2024 Interpretation and review of laboratory results Abnormal [facility] No Panel Informationon 04-22 Interpretation and review of laboratory results Normal [facility] Performed by: [facility], [address] [place] [address] CLIA ID: [id number] [facility] Interpretation and review of laboratory results Abnormal [facility] Atypical Lymphocytes Manual [facility] Bands Manual [facility] Basophils Manual 2 [facility] Blasts Manual [facility] Eosinophils Manual 3 High 0 - 1 [facility] Interpretation and review of laboratory results Abnormal [facility] Lymphocytes Manual 38 [facility] Metamyelocytes Manual [facility] Monocytes Manual 1 [facility] Myelocytes Manual [facility] Neutrophils Manual 56 [facility] Promyelocytes Manual [facility] Unclassified Cells, Manual [facility] COCAINE METAB. SCREEN Negative [facility] The expected value f or all [...] is needed, request confirmation under separate order. [facility] Interpretation and review of laboratory results Abnormal [facility] No Panel InformationOrdered By: Dee Viramontes on 04-22-2024 Interpretation and review of laboratory results Abnormal [facility] OSMOLALITY, URINE 154 Low [facility] OSMOLALITY, SERUMon 04-22-20 24 OSMOLALITY, SERUM 333 mOsm/kg High 280-300 [facility] Comment on above: Performed By: #### L [id number] ####Senior Telecommunications Technician: TRESSA SANTIZO ([phone])[facility] ([facility])[address] OSMOLALITY, URINEon 04-22-20 24 OSMOLALITY, URINE 154 mOsm/kg Low 300-1000 [facility] Comment on above: Performed By: #### L [id number], [id number], [id number] ####Senior Telecommunications Technician: TRESSA SANTIZO ([phone])[facility] ([facility])[address] [place] [address] Progress Noteon 04-22-2024 Progress Note Normal [facility] SARS-COV-2 ANTIGENon 024 SARS-COV-2 ANTIGEN Normal [facility] Comment on above: Performed By: #### L [id number] ####Senior Telecommunications Technician: TRESSA SANTIZO ([phone])[facility] ([facility])[address] SARS-CoV-2 (COVID-19) Ag IA. rapid Ql (Resp)Ordered By: Aylin Moran on 04-22-2024 Interpretation and review of laboratory results Normal [facility] SODIUM, URINE, RANDOMon -0 Sodium (U) [Moles/Vol] 7 mmol/L Low 30-90 [facility] Comment on above: Performed By: #### L [id number], [id number], [id number] ####Senior Telecommunications Technician: TRESSA SANTIZO ([phone])[facility] ([facility])[address] [place] [address] Urinalysis complete panel (U )on 04-22-2024 Bilirubin Ql (U) Negative Negative mg/dL [facility] Clarity (U) Clear Clear [facility] Color (U) Colorless Lt. Yellow [facility] Glucose Ql (U) Normal Normal (<70) mg/dL [facility] Hemoglobin Ql (U) Negative Negative mg/dL [facility] Interpretation and review of laboratory results Abnormal [facility] Ketones (U) [Mass/Vol] Negative Negat zenia mg/dL [facility] Leukocyte esterase Test strip Ql (U) Negative Negative Emma/uL [facility] Nitrite Ql (U) Negative Negative [facility] pH (U) 5.5 [pH] 5.0 - 8.0 pH [facility] Protein (U) [Mass/Vol] Negative Negat zenia mg/dL [facility] Specific gravity (U) [Rel density] 1.003 Low 1.005 - 1.030 [facility] Urobilinogen (U) [Mass/Vol] Normal Normal (0-1) mg/dL [facility] ALCOHOL, MEDICALon ALCOHOL MEDICAL < Normal <10.0 [facility] Comment on above: Result Comment: Alco hol cutoff: <10.00 mg/dL = None Detected Performed By: #### 4 [id number] #### [facility] [address] [address] Eunice Rodriguez M.D. [id number] BASIC METABOLIC PANELon 03-20 Anion gap [Moles/Vol] 17 mmol/L Normal 10-20 [facility] Comment on above: Order Comment: [facility] has implemented the eGFR calculation approach that does not have a coefficient for race that conforms to the NKF-ASN Task Force Recommendations. Performed By: #### 4 6124 #### [facility] [address] [place], [place] [address] Eunice Rodriguez M.D. [id number] Calcium [Mass/Vol] 9.7 mg/dL Normal 8.4-10.2 [facility] Comment on above: Order Comment: [facility] has implemented the eGFR calculation approach that does not have a coefficient for race that conforms to the NKF-ASN Task Force Recommendations. Performed By: #### 4 6124 #### [facility] [address] [place], [place] [address] Eunice Rodriguez M.D. [id number] Chloride [Moles/Vol] 103 mmol/L Normal 98-[address] [facility] [place] Comment on above: Order Comment: [facility] has implemented the eGFR calculation approach that does not have a coefficient for race that conforms to the NKF-ASN Task Force Recommendations. Performed By: #### 4 6124 #### [facility] [address] [place], [place] [address] Eunice Rodriguez M.D. [id number] Creatinine [Mass/Vol] 1.01 mg/dL Normal 0.80-1.30 [facility] Comment on above: Order Comment: [facility] has implemented the eGFR calculation approach that does not have a coefficient for race that conforms to the NKF-ASN Task Force Recommendations. Performed By: #### 4 6124 #### [facility] [address] [place], [place] [address] Eunice Rodriguez M.D. [id number] EGFR 83 mL/min/1.73 m2 Normal >=60 [facility] Comment on above: Order Comment: [facility] has implemented the eGFR calculation approach that does not have a coefficient for race that conforms to the NKF-ASN Task Force Recommendations. Result Comment: Brie mated GFR was calculated using the 2020 CKD-EPI creatinine equation. Performed By: #### 4 6124 #### [facility] [address] [place], [place] [address] Eunice Rodriguez M.D. [id number] Glucose [Mass/Vol] 101 mg/dL High 65-99 [facility] Comment on above: Order Comment: [facility] has implemented the eGFR calculation approach that does not have a coefficient for race that conforms to the NKF-ASN Task Force Recommendations. Performed By: #### 4 6124 #### [facility] [address] [place], [place] [address] Eunice Rodriguez M.D. [id number] HCO3 (Bld) [Moles/Vol] 24 mmol/L Normal 21-32 [facility] Comment on above: Order Comment: [facility] has implemented the eGFR calculation approach that does not have a coefficient for race that conforms to the NKF-ASN Task Force Recommendations. Performed By: #### 4 6124 #### [facility] [address] [place], [place] [address] Eunice Rodriguez M.D. [id number] Potassium [Moles/Vol] 4.0 mmol/L Normal 3.5-5.1 [facility] Comment on above: Order Comment: [facility] has implemented the eGFR calculation approach that does not have a coefficient for race that conforms to the NKF-ASN Task Force Recommendations. Performed By: #### 4 6124 #### [facility] [address] [place], [place] [address] Eunice Rodriguez M.D. [id number] Sodium [Moles/Vol] 140 mmol/L Normal 135-145 [facility] Comment on above: Order Comment: [facility] has implemented the eGFR calculation approach that does not have a coefficient for race that conforms to the NKF-ASN Task Force Recommendations. Performed By: #### 4 6124 #### [facility] [address] [place], [place] [address] Eunice Rodriguez M.D. [id number] Urea nitrogen [Mass/Vol] 8 mg/dL Normal 8-25 [facility] Comment on above: Order Comment: [facility] has implemented the eGFR calculation approach that does not have a coefficient for race that conforms to the NKF-ASN Task Force Recommendations. Performed By: #### 4 6124 #### [facility] [address] [place], [place] [address] Eunice Rodriguez M.D. [id number] Urea nitrogen/Creatinine [Mass ratio] 7.9 mg/mg Low 10.0-20.0 [facility] Comment on above: Order Comment: [facility] has implemented the eGFR calculation approach that does not have a coefficient for race that conforms to the NKF-ASN Task Force Recommendations. Performed By: #### 4 6124 #### [facility] [address] [address] Eunice Rodriguez M.D. [id number] CBC WITH AUTO DIFFERENTIALon 04-09-2024 AUTO NRBC 0.0 % Normal [facility] Comment on above: Performed By: #### L [id number] #### [facility] [address] [address] Eunice Rodriguez M.D. [id number] AUTO NRBC ABS COUNT 0.00 K/mcL Normal 0.00-0.00 [facility] Comment on above: Performed By: #### L [id number] #### [facility] [address] [address] Eunice Rodriguez M.D. [id number] BASOPHILS ABSOLUTE COUNT 0.03 K/mcL Normal 0.00-0.30 [facility] Comment on above: Performed By: #### L [id number] #### [facility] [address] [address] Eunice Rodriguez M.D. [id number] Basophils/100 WBC (Bld) 0.5 % Normal [facility] Comment on above: Performed By: #### L [id number] #### [facility] [address] [address] Eunice Rodriguez M.D. [id number] Eosinophils (Bld) [#/Vol] 0.05 10*3/uL Normal 0.00-0.50 [facility] Comment on above: Performed By: #### L [id number] #### [facility] [address] [place] [address] Eunice Rodriguez M.D. [id number] Eosinophils/100 WBC (Bld) 0.9 % [facility] Comment on above: Performed By: #### L [id number] #### [facility] [address] [address] Eunice Rodriguez M.D. [id number] Erythrocyte distribution width (RBC) [Ratio] 15.2 % High 11.6-14.8 [facility] Comment on above: Performed By: #### L [id number] #### [facility] [address] [address] Eunice Rodriguez M.D. [id number] Hematocrit (Bld) [Volume fraction] 37.1 % Low 41.0-53.0 [facility] Comment on above: Performed By: #### L [id number] #### [facility] [address] [address] Eunice Rodriguez M.D. [id number] Hemoglobin (Bld) [Mass/Vol] 12.4 g/dL Low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 Comment: IG% - Immature Granulocytes (promyelocytes, myelocytes and metamyelocytes) > 1% indicates that a LEFT SHIFT is Present. Performed By: #### L 505.5000, L501.9100, L500.4050, L100.0100, L300.3900 #### [facility] [address] [place], [address] Lymphocytes/100 WBC (Bld) 44.0 % High 19-41 [facility] Comment on above: Performed By: #### L 505.5000, L501.9100, L500.4050, L100.0100, L300.3900 #### [facility] [address] [place], [address] MCH (RBC) [Entitic mass] 31.1 pg Normal 27.0-32.0 [facility] Comment on above: Performed By: #### L 505.5000, L501.9100, L500.4050, L100.0100, L300.3900 #### [facility] [address] [place], [address] MCHC (RBC) [Mass/Vol] 35.0 g/dL Normal 32-36 [facility] Comment on above: Performed By: #### L 505.5000, L501.9100, L500.4050, L100.0100, L300.3900 #### [facility] [address] [place], [address] MCV (RBC) [Entitic vol] 88.7 fL Normal 80-94 [facility] Comment on above: Performed By: #### L 505.5000, L501.9100, L500.4050, L100.0100, L300.3900 #### [facility] [address] [place], [address] Monocytes/100 WBC (Bld) 9.5 % Normal 0-10 [facility] Comment on above: Performed By: #### L 505.5000, L501.9100, L500.4050, L100.0100, L300.3900 #### [facility] [address] [place], [address] Neutrophils/100 WBC (Bld) 45.2 % Low 47-70 [facility] Comment on above: Performed By: #### L 505.5000, L501.9100, L500.4050, L100.0100, L300.3900 #### [facility] [address] [place], [address] Nucleated RBC (Bld) [#/Vol] 0 10*3/uL Normal 0-5 [facility] Comment on above: Performed By: #### L 505.5000, L501.9100, L500.4050, L100.0100, L300.3900 #### [facility] [address] [place], [address] Platelet mean volume (Bld) [Entitic vol] 8.6 fL Normal 6.2-12.0 [facility] Comment on above: Performed By: #### L 505.5000, L501.9100, L500.4050, L100.0100, L300.3900 #### [facility] [address] [place], [address] Platelets (Bld) [#/Vol] 114 10*3/uL Low 150-450 [facility] Comment on above: Performed By: #### L 505.5000, L501.9100, L500.4050, L100.0100, L300.3900 #### [facility] [address] [place], [address] RBC (Bld) [#/Vol] 3.73 10*6/uL Low 4.6-6.2 [facility] Comment on above: Performed By: #### L 505.5000, L501.9100, L500.4050, L100.0100, L300.3900 #### [facility] [address] [place], [address] RDW SD 45.4 fl High 35.1-43.9 [facility] Comment on above: Performed By: #### L 505.5000, L501.9100, L500.4050, L100.0100, L300.3900 #### [facility] [address] [place], [address] WBC (Bld) [#/Vol] 5.9 10*3/uL Normal 4.4-11.0 [facility] Comment on above: Performed By: #### L 505.5000, L501.9100, L500.4050, L100.0100, L300.3900 #### [facility] [address] [place], [address] Comprehensive Metabolic Prof ilon 04-05-2024 Albumin [Mass/Vol] 3.8 g/dL Normal 3.2-5.0 [facility] Comment on above: Performed By: #### L 505.5000, L501.9100, L500.4050, L100.0100, L300.3900 #### [facility] [address] [place], [address] Albumin/Globulin [Mass ratio] 1.0 {ratio} Normal 0.9-2.4 [facility] Comment on above: Performed By: #### L 505.5000, L501.9100, L500.4050, L100.0100, L300.3900 #### [facility] [address] [place], [address] ALK P 84 U/L Normal 45-117 [facility] Comment on above: Performed By: #### L 505.5000, L501.9100, L500.4050, L100.0100, L300.3900 #### [facility] [address] [place], [address] ALT [Catalytic activity/Vol] 21 U/L Normal 16-61 [facility] Comment on above: Performed By: #### L 505.5000, L501.9100, L500.4050, L100.0100, L300.3900 #### [facility] [address] [place], [address] AST [Catalytic activity/Vol] 30 U/L Normal 15-37 [facility] Comment on above: Performed By: #### L 505.5000, L501.9100, L500.4050, L100.0100, L300.3900 #### [facility] [address] [place], [address] Bilirubin [Mass/Vol] 1.20 mg/dL High 0.20-1.00 [facility] Comment on above: Result Comment: For patients on eltrombopag therapy, use of Dimension [place] TBIL is not recommended. Performed By: #### L 505.5000, L501.9100, L500.4050, L100.0100, L300.3900 #### [facility] [address] [place], [address] BUN/CRE 4.3 RATIO Low 10-20 [facility] Comment on above: Performed By: #### L 505.5000, L501.9100, L500.4050, L100.0100, L300.3900 #### [facility] [address] [place], [address] CA,Total 8.7 mg/dL Normal 8.5-10.1 [facility] Comment on above: Performed By: #### L 505.5000, L501.9100, L500.4050, L100.0100, L300.3900 #### [facility] [address] [place], [address] Chloride [Moles/Vol] 96 mmol/L Low 98-107 [facility] Comment on above: Performed By: #### L 505.5000, L501.9100, L500.4050, L100.0100, L300.3900 #### [facility] [address] [place], [address] CO2 [Moles/Vol] 17.0 mmol/L Low 21.0-32.0 [facility] Comment on above: Performed By: #### L 505.5000, L501.9100, L500.4050, L100.0100, L300.3900 #### [facility] [address] [place], [address] Creatinine [Mass/Vol] 0.94 mg/dL Normal 0.70-1.30 [facility] Comment on above: Result Comment: The validity of the calculated GFR GFRAA in patients over 70 years has not been determined. Clinical correlation is essential. Performed By: #### L 505.5000, L501.9100, L500.4050, L100.0100, L300.3900 #### [facility] [address] [place], [address] ECRCL 81.97 ml/min Normal [facility] Comment on above: Performed By: #### L 505.5000, L501.9100, L500.4050, L100.0100, L300.3900 #### [facility] [address] [place], [address] EST GFR - AA 104 mL/min Normal >60 [facility] Comment on above: Result Comment: Afri can Panamanian GFR Calc Performed By: #### L 505.5000, L501.9100, L500.4050, L100.0100, L300.3900 #### [facility] [address] [place], [address] GAP 14 Normal 5-15 [facility] Comment on above: Performed By: #### L 505.5000, L501.9100, L500.4050, L100.0100, L300.3900 #### [facility] [address] [place], [address] GFR/1.73 sq M.predicted among non-blacks MDRD (S/P/Bld) [Vol rate/Area] 86 mL/min/{1.73_m2} Normal >60 [facility] Comment on above: Result Comment: Non- GFR Calc Performed By: #### L 505.5000, L501.9100, L500.4050, L100.0100, L300.3900 #### [facility] [address] [place], [address] Globulin (S) [Mass/Vol] 3.9 g/dL Normal 2.2-4.2 [facility] Comment on above: Performed By: #### L 505.5000, L501.9100, L500.4050, L100.0100, L300.3900 #### [facility] [address] [place], [address] Glucose [Mass/Vol] 99 mg/dL Normal 74-106 [facility] Comment on above: Performed By: #### L 505.5000, L501.9100, L500.4050, L100.0100, L300.3900 #### [facility] [address] [place], [address] Potassium [Moles/Vol] 3.3 mmol/L Low 3.5-5.1 [facility] Comment on above: Performed By: #### L 505.5000, L501.9100, L500.4050, L100.0100, L300.3900 #### [facility] [address] [place], [address] Sodium [Moles/Vol] 127 mmol/L Low 136-145 [facility] Comment on above: Performed By: #### L 505.5000, L501.9100, L500.4050, L100.0100, L300.3900 #### [facility] [address] [place], [address] T PROT 7.7 g/dL Normal 6.4-8.2 [facility] Comment on above: Performed By: #### L 505.5000, L501.9100, L500.4050, L100.0100, L300.3900 #### [facility] [address] [place], [address] Urea nitrogen [Mass/Vol] 4 mg/dL Low 05-05 [facility] Comment on above: Performed By: #### L 505.5000, L501.9100, L500.4050, L100.0100, L300.3900 #### [facility] [address] [place], [address] ECG 12-LEADon 04-05-2024 ECG 12-LEAD IMPRESSION: SINUS RHYTHM RBBB AND LAFB Compared to ECG 01/19/24 No significant change Electronically Signed On 04-05-2024 01:10:01 EDT by Rubén Hoang [facility] Emergency Department Summary on 04-05-2024 Emergency Department Summary [facility] Medical Records Department [address] [place] [address] Emergency Department Summary 04/05/24 MR#: [id number] Acct: [id number] Name: WOODY NI Rep #: [id number] : 1960 64 From: Eddy Haddad MD PCP: Dr. Jani Quezada MD Status:ADM IN Location: [place] [address] HPI History of Present Illness Chief Complaint: ETOH Intox Informant: patient and family Narrative Narrative: Patient here escorted by family member looking for alcohol detox. He wants to stop drinking states he has been trying, he has been through some other programs before [facility] Usually drinks 18 beers per day does [...] as a result, he was seen in [facility] and had a CT scan showing no acute internal injuries and was discharged after his evaluation. No injuries or other new symptoms since then. Patient and family state that they talked with a security systems sales representative of the ramp program which is why they present here today. [facility] Medical History (Updated 04/05/24 @ 17:35 by [...] mg fe (more content not included)... Normal [facility] H AND P Exam - [facility] 04-05-2024 H&P Exam - Hospitalist [facility] Medical Records Department [address] [place] [address] H P Exam - Hospitalist 04/05/24 1710 MR#: [id number] Acct: [id number] Name: WOODY NI Rep #: [id number] : 1960 64 From: Cody Parmar MD PCP: Dr. Jani Quezada MD Status:ADM IN Location: [facility] NR291-5 HPI - General General Date of Admission: [...] on last Thursday and he went to [place] [facility]. There he was told to follow-up [...] drawn discussed in assessment and plan. [facility] Medical History Diabetic neuropathy Muscle weakness Personal [...] Surgical History (more content not included)... Normal [facility] Magnesiumon 04-05-2024 Magnesium [Mass/Vol] 1.2 mg/dL Low 1.6-2.6 [facility] Comment on above: Performed By: #### L 501.5300, L501.5200 #### [facility] [address] [place], [place], [address] No Panel Informationon 04-05 P [place] 60 degrees [facility] [place] Interval 188 ms [facility] QRS [place] -49 degrees [facility] QRSD Interval 144 ms [facility] QT Interval 404 ms [facility] QTC Interval 503 ms [facility] T Wave [place] 11 degrees [facility] SINUS RHYTHM RBBB AND LAFB Compared to ECG 01/19/24 No significant change Electronically Signed On 04-05-2024 01:10:01 EDT by Rubén Hopkins D O - 04/05/2024 IMPRESSION: SINUS RHYTHM RBBB AND LAFB Compared to ECG 01/19/24 No significant change Electronically Signed On 04-05-2024 01:10:01 EDT by Rubén Hoang [facility] Phosphoruson 04-05-2024 Phosphate [Mass/Vol] 1.7 mg/dL Low 2.5-4.9 [facility] Comment on above: Performed By: #### L 501.5300, L501.5200 #### [place] [facility] [address] [place], [place], [id number] Prothrombin Time w/INRon INR Coag (PPP) [Relative time] 1.1 {INR} Normal [facility] Comment on above: Performed By: #### L 505.5000, L501.9100, L500.4050, L100.0100, L300.3900 #### [facility] [address] [place], [address] PT Coag (PPP) [Time] 13.8 s Normal 11.7-14.9 [facility] Comment on above: Performed By: #### L 505.5000, L501.9100, L500.4050, L100.0100, L300.3900 #### [facility] [address] [place], [address] Sodium Levelon 04-05-2024 Sodium [Moles/Vol] 135 mmol/L Low 136-145 [facility] Comment on above: Performed By: #### L 501.5300, L501.5200 #### [facility] [address] [place], [address] Urine Drug Screen (VISTA)on 04-05-2024 AMPHETAMINES Negative Normal <1000 ng/mL [facility] Comment on above: Performed By: #### L 505.5000, L501.9100, L500.4050, L100.0100, L300.3900 #### [facility] [address] [place], [address] BARBITIURATES Negative Normal < 200 ng/mL [facility] Comment on above: Performed By: #### L 505.5000, L501.9100, L500.4050, L100.0100, L300.3900 #### [facility] [address] [place], [address] BENZODIAZIPINE Negative Normal < 200 ng/mL [facility] Comment on above: Performed By: #### L 505.5000, L501.9100, L500.4050, L100.0100, L300.3900 #### [facility] [address] [place], [address] COCAINE Negative Normal < 300 ng/mL [facility] Comment on above: Performed By: #### L 505.5000, L501.9100, L500.4050, L100.0100, L300.3900 #### [facility] [address] [place], [address] ECSTACY Negative Normal < 500 ng/mL [facility] Comment on above: Performed By: #### L 505.5000, L501.9100, L500.4050, L100.0100, L300.3900 #### [facility] [address] [place], [place], [facility] METHADONE Negative Normal < 300 ng/mL [facility] Comment on above: Performed By: #### L 505.5000, L501.9100, L500.4050, L100.0100, L300.3900 #### [facility] [address] [place], [address] OPIATES Negative Normal < 300 ng/mL [facility] Comment on above: Performed By: #### L 505.5000, L501.9100, L500.4050, L100.0100, L300.3900 #### [facility] [address] [place], [address] PCP Negative Normal < 25 ng/mL [facility] Comment on above: Performed By: #### L 505.5000, L501.9100, L500.4050, L100.0100, L300.3900 #### [facility] [address] [place], [place], [facility] THC Positive Abnormal < 50 ng/mL [facility] Comment on above: Performed By: #### L 505.5000, L501.9100, L500.4050, L100.0100, L300.3900 #### [facility] [address] [place], [address] VISTA UDS PH 6 Normal [facility] Comment on above: Performed By: #### L 505.5000, L501.9100, L500.4050, L100.0100, L300.3900 #### [facility] [address] [place], [address] Vital signson 04-05-2024 Heart rate 93 /min bpm [facility] BETA HYDROXYBUTYRATEon 04-04 BETA HYDROXYBUTYRATE 2.29 mg/dL Normal 0.20-2.81 [facility] Comment on above: Performed By: #### L AB46, [id number], [id number], [id number] ####Senior Telecommunications Technician: ARA WRIGHT ([phone])[facility] (SWRLAB)[address] [place] [address] [place] BLOOD GAS, VENOUS (SWR AND S HC)on 04-04-2024 BASE EXCESS (MMOL/L) IN VENOUS BLOOD -8.0 mmol/L Low -3.0-3.0 [facility] Comment on above: Performed By: #### L [id number] ####Senior Telecommunications Technician: ARA WRIGHT ([phone])[facility] (SWRLAB)[address] [place] [address] [place] CARBON DIOXIDE (MM HG) IN VENOUS BLOOD 35 mm(Hg) Low 40-55 [facility] Comment on above: Performed By: #### L [id number] ####Senior Telecommunications Technician: ARA WRIGHT ([phone])[facility] (SWRLAB)[address] [place] [address] [place] CO2 [Moles/Vol] 19.0 mmol/L Low 24.0-28.0 [facility] Comment on above: Performed By: #### L [id number] ####Senior Telecommunications Technician: ARA WRIGHT ([phone])[facility] (SWRLAB)[address] [place] [address] [place] HCO3 (Bld) [Moles/Vol] 17.9 mmol/L Low 23.0-27.0 [facility] Comment on above: Performed By: #### L [id number] ####Senior Telecommunications Technician: ARA WRIGHT ([phone])[facility] (SWRLAB)[address] [place] [address] OXYGEN (MM HG) IN VENOUS BLOOD 31 mm(Hg) Normal [facility] Comment on above: Performed By: #### L [id number] ####Senior Telecommunications Technician: ARA WRIGHT ([phone])[facility] (SWRLAB)[address] [place] [address] OXYGEN SATURATION (%) IN VENOUS BLOOD 56.0 % Low 60.0-80.0 [facility] Comment on above: Performed By: #### L [id number] ####Senior Telecommunications Technician: ARA WRIGHT ([phone])[facility] (SWRLAB)[address] [place] [address] pH (Bld) 7.323 [pH] Normal 7.310-7.410 [facility] Comment on above: Performed By: #### L [id number] ####Senior Telecommunications Technician: ARA WRIGHT ([phone])[facility] (SWRLAB)[address] [place] [address] SOURCE OF OXYGEN Room Air Normal [facility] Comment on above: Performed By: #### L [id number] ####Senior Telecommunications Technician: ARA WRIGHT ([phone])[facility] (SWRLAB)[address] [place] [address] CBC W Auto Differential pane l (Bld)on 04-04-2024 Basophils (Bld) [#/Vol] 0.0 10*3/uL 0.0 - 0.2 10*3/uL [facility] Basophils/100 WBC (Bld) 0.6 % 0.0 - 2.0 % [facility] Eosinophils (Bld) [#/Vol] 0.0 10*3/uL 0.0 - 0.5 10*3/uL [facility] Eosinophils/100 WBC (Bld) 0.2 % 0.0 - 6.0 % [facility] Erythrocyte distribution width (RBC) [Ratio] 14.0 % 11.5 - 15.0 % [facility] Hematocrit (Bld) [Volume fraction] 31.7 % Low 40.0 - 52.0 % [facility] Hemoglobin (Bld) [Mass/Vol] 11.2 g/dL Low 13.0 - 18.0 g/dL [facility] [email or web address] Immature granulocytes (Bld) [#/Vol] 0.0 10*3/uL NINF - 0.1 10*3/uL [facility] [email or web address] Immature granulocytes/100 WBC (Bld) 0.2 % 0.0 - 2.0 % [facility] Interpretation and review of laboratory results Abnormal [facility] IPF 1 [facility] Lymphocytes (Bld) [#/Vol] 1.8 10*3/uL 1.0 - 4.3 10*3/uL [facility] Lymphocytes/100 WBC (Bld) 38.2 % 15.0 - 45.0 % [facility] MCH (RBC) [Entitic mass] 31.1 pg 26.0 - 34.0 pg [facility] MCHC (RBC) [Mass/Vol] 35.3 % 30.5 - 36.0 % [facility] MCV (RBC) [Entitic vol] 88.1 fL 77.0 - 99.0 fL [facility] [email or web address] Monocytes (Bld) [#/Vol] 0.5 10*3/uL 0.0 - 0.9 10*3/uL [facility] Monocytes/100 WBC (Bld) 10.3 % 5.0 - 13.0 % [facility] Neutrophils (Bld) [#/Vol] 2.4 10*3/uL 1.8 - 7.5 10*3/uL [facility] Neutrophils/100 WBC (Bld) 50.5 % 38.0 - 82.0 % [facility] Nucleated RBC/100 WBC (Bld) [Ratio] 0.0 % [facility] Platelet mean volume (Bld) [Entitic vol] 8.4 fL Low 9.0 - 12.7 fL [facility] [email or web address] Platelets (Bld) [#/Vol] 110 10*3/uL Low 140 - 440 10*3/uL [facility] RBC (Bld) [#/Vol] 3.60 10*6/uL Low 4.40 - 5.9 0 10*6/uL [facility] WBC (Bld) [#/Vol] 4.7 10*3/uL 3.6 - 10.7 10*3/uL [facility] CBC WITH AUTO DIFFERENTIALon 04-04-2024 Basophils (Bld) [#/Vol] 0.0 10*3/uL Normal 0.0-0.2 [facility] Comment on above: Performed By: #### L [id number] ####Senior Telecommunications Technician: ARA WRIGHT ([phone])[facility] (SWRLAB)[address] [place] [address] Basophils/100 WBC (Bld) 0.6 % Normal 0.0-2.0 [facility] Comment on above: Performed By: #### L [id number] ####Senior Telecommunications Technician: ARA WRIGHT ([phone])[facility] (SWRLAB)[address] [place] [address] Eosinophils (Bld) [#/Vol] 0.0 10*3/uL Normal 0.0-0.5 [facility] Comment on above: Performed By: #### L [id number] ####Senior Telecommunications Technician: ARA WRIGHT ([phone])[facility] (SWRLAB)[address] [place] [address] Eosinophils/100 WBC (Bld) 0.2 % Normal 0.0-6.0 [facility] Comment on above: Performed By: #### L [id number] ####Senior Telecommunications Technician: ARA WRIGHT ([phone])[facility] (SWRLAB)[address] [place] [address] Erythrocyte distribution width (RBC) [Ratio] 14.0 % Normal 11.5-15.0 [facility] Comment on above: Performed By: #### L [id number] ####Senior Telecommunications Technician: ARA WRIGHT ([phone])[facility] (SWRLAB)[address] [place] [address] Hematocrit (Bld) [Volume fraction] 31.7 % Low 40.0-52.0 [facility] Comment on above: Performed By: #### L [id number] ####Senior Telecommunications Technician: ARA WRIGHT ([phone])HANNA DUNCAN RITTMAN (SWRLAB)[address] [place] [address] Hemoglobin (Bld) [Mass/Vol] 11.2 g/dL Low 13.0-18.0 [facility] Comment on above: Performed By: #### L [id number] ####Senior Telecommunications Technician: ARA WRIGHT ([phone])[facility] (SWRLAB)[address] [place] [address] IMMATURE GRANS % 0.2 % Normal 0.0-2.0 [facility] Comment on above: Performed By: #### L [id number] ####Senior Telecommunications Technician: ARA WRIGHT ([phone])[facility] (SWRLAB)[address] [place] [address] IMMATURE GRANS ABSOLUTE 0.0 10*3/uL Normal <0.1 [facility] Comment on above: Performed By: #### L [id number] ####Senior Telecommunications Technician: ARA WRIGHT ([phone])[facility]ITAL[facility] (SWRLAB)[address] [place] [address] [place] IPF 1 Normal [facility] Comment on above: Performed By: #### L [id number] ####Senior Telecommunications Technician: ARA WRIGHT ([phone])[facility] (SWRLAB)[address] [place] [address] [place] Lymphocytes (Bld) [#/Vol] 1.8 10*3/uL Normal 1.0-4.3 [facility] Comment on above: Performed By: #### L [id number] ####Senior Telecommunications Technician: ARA WRIGHT ([phone])H[facility] DUNC[facility]TMAN (SWRLAB)[address] [place] [address] Lymphocytes/100 WBC (Bld) 38.2 % Normal 15.0-45.0 [facility] Comment on above: Performed By: #### L [id number] ####Senior Telecommunications Technician: ARA WRIGHT ([phone])[facility] (SWRLAB)[address] [place] [address] MCH (RBC) [Entitic mass] 31.1 pg Normal 26.0-34.0 [facility] Comment on above: Performed By: #### L [id number] ####Senior Telecommunications Technician: ARA WRIGHT ([phone])[facility] (SWRLAB)[address] [place] [address] MCHC 35.3 % Normal 30.5-36.0 [facility] Comment on above: Performed By: #### L [id number] ####Senior Telecommunications Technician: ARA WRIGHT ([phone])[facility] (SWRLAB)[address] [place] [address] MCV (RBC) [Entitic vol] 88.1 fL Normal 77.0-99.0 [facility] Comment on above: Performed By: #### L [id number] ####Senior Telecommunications Technician: ARA WRIGHT ([phone])[facility] (SWRLAB)[address] [place] [address] Monocytes (Bld) [#/Vol] 0.5 10*3/uL Normal 0.0-0.9 [facility] Comment on above: Performed By: #### L [id number] ####Senior Telecommunications Technician: ARA WRIGHT ([phone])[facility] (SWRLAB)[address] [place] [address] [place] Monocytes/100 WBC (Bld) 10.3 % Normal 5.0-13.0 [facility] Comment on above: Performed By: #### L [id number] ####Senior Telecommunications Technician: ARA WRIGHT ([phone])[facility] (SWRLAB)[address] [place] [address] NEUTROPHILS ABSOLUTE 2.4 10*3/uL Normal 1.8-7.5 [facility] Comment on above: Performed By: #### L [id number] ####Senior Telecommunications Technician: ARA WRIGHT ([phone])HANNA DUNCAN RITTMAN (SWRLAB)[address] [place] [address] [place] Neutrophils/100 WBC (Bld) 50.5 % Normal 38.0-82.0 [facility] Comment on above: Performed By: #### L [id number] ####Senior Telecommunications Technician: ARA WRIGHT ([phone])HANNA DUNCAN RITTMAN (SWRLAB)[address] [place] [address] [place] NRBC 0.0 /100 WBCs Normal 0.0-2.0 [facility] Comment on above: Performed By: #### L [id number] ####Senior Telecommunications Technician: ARA WRIGHT ([phone])H[facility] DUNC[facility]TM[facility] (SWRLAB)[address] [place] [address] [place] Platelet mean volume (Bld) [Entitic vol] 8.4 fL Low 9.0-12.7 [facility] Comment on above: Performed By: #### L [id number] ####Senior Telecommunications Technician: ARA WRIGHT ([phone])H[facility] DUNC[facility] R[facility]TMAN (SWRLAB)[address] [place] [address] [place] Platelets (Bld) [#/Vol] 110 10*3/uL Low 140-440 [facility] Comment on above: Performed By: #### L [id number] ####Senior Telecommunications Technician: ARA WRIGHT ([phone])[facility] (SWRLAB)[address] [place] [address] [place] RBC (Bld) [#/Vol] 3.60 10*6/uL Low 4.40-5.90 [facility] Comment on above: Performed By: #### L [id number] ####Senior Telecommunications Technician: ARA WRIGHT ([phone])[facility] (SWRLAB)[address] [place] [address] [place] WBC (Bld) [#/Vol] 4.7 10*3/uL Normal 3.6-10.7 [facility] Comment on above: Performed By: #### L [id number] ####Senior Telecommunications Technician: ARA WRIGHT ([phone])[facility]ITAL[facility] GUSTAFSONTM[facility] (SWRLAB)[address] COMPREHENSIVE METABOLIC PANE Peter 04-04-2024 Albumin [Mass/Vol] 4.2 g/dL Normal 3.5-5.0 [facility] Comment on above: Performed By: #### L AB46, [id number], [id number], LAB17 ####Senior Telecommunications Technician: ARA WRIGHT ([phone])[facility]ITAL[facility]USTA[facility] (SWRLAB)[address] [place] [address] ALP [Catalytic activity/Vol] 67 U/L Normal 38-126 [facility] Comment on above: Performed By: #### L AB46, [id number], [id number], LAB17 ####Senior Telecommunications Technician: ARA WRIGHT ([phone])[facility] (SWRLAB)[address] [place] [address] ALT [Catalytic activity/Vol] 17 U/L Normal 0-49 [facility] Comment on above: Performed By: #### L AB46, [id number], [id number], LAB17 ####Senior Telecommunications Technician: ARA WRIGHT ([phone])[facility] (SWRLAB)[address] [place] [address] Anion gap [Moles/Vol] 14 mmol/L High 3-13 [facility] Comment on above: Performed By: #### L AB46, [id number], [id number], LAB17 ####Senior Telecommunications Technician: ARA WRIGHT ([phone])[facility] (SWRLAB)[address] AST [Catalytic activity/Vol] 39 U/L Normal 15-46 [facility] Comment on above: Performed By: #### L AB46, [id number], [id number], LAB17 ####Senior Telecommunications Technician: ARA WRIGHT ([phone])[facility] (SWRLAB)[address] [place] [address] [place] Bilirubin [Mass/Vol] 1.0 mg/dL Normal 0.2-1.3 [facility] Comment on above: Performed By: #### L AB46, [id number], [id number], LAB17 ####Senior Telecommunications Technician: ARA WRIGHT ([phone])[facility] (SWRLAB)[address] [place] [address] Calcium [Mass/Vol] 8.8 mg/dL Normal 8.4-10.4 [facility] Comment on above: Performed By: #### Popeye AB46, [id number], [id number], LAB17 ####Senior Telecommunications Technician: ARA WRIGHT ([phone])[facility] (SWRLAB)[address] [place] [address] [place] Chloride [Moles/Vol] 98 mmol/L Normal 98-107 [facility] Comment on above: Performed By: #### L 46, [id number], [id number], LAB17 ####Senior Telecommunications Technician: ARA WRIGHT ([phone])[facility] (SWRLAB)[address] [place] [address] [place] CO2 [Moles/Vol] 16 mmol/L Low 22-30 [facility] Comment on above: Performed By: #### L AB46, [id number], [id number], LAB17 ####Senior Telecommunications Technician: ARA WRIGHT ([phone])[facility] (SWRLAB)[address] [place] [address] [place] Creatinine [Mass/Vol] 0.92 mg/dL Normal 0.66-1.25 [facility] Comment on above: Performed By: #### L AB46, [id number], [id number], LAB17 ####Senior Telecommunications Technician: ARA WRIGHT ([phone])[facility] (SWRLAB)[address] GLOMERULAR FILTRATION RATE ML/MIN/1.73 SQ M.PREDICTED >90.0 Normal >60.0 [facility] Comment on above: Result Comment: Calc ulation based on the Chronic Kidney Disease Epidemiology Collaboration (CKD-EPI) equation refit without adjustment for race Performed By: #### L AB46, [id number], [id number], LAB17 ####Senior Telecommunications Technician: ARA WRIGHT ([phone])[facility] (SWRLAB)[address] [place] [address] [place] Glucose [Mass/Vol] 97 mg/dL Normal 70-100 [facility] Comment on above: Performed By: #### L AB46, [id number], [id number], LAB17 ####Senior Telecommunications Technician: ARA WRIGHT ([phone])[facility] HOSPITALDAKOTAJAMAL GUSTAFSONTMAN (SWRLAB)[address] [place] [address] [place] Potassium [Moles/Vol] 3.5 mmol/L Normal 3.5-5.1 [facility] Comment on above: Performed By: #### L AB46, [id number], [id number], LAB17 ####Senior Telecommunications Technician: ARA WRIGHT ([phone])[facility] (SWRLAB)[address] [place] [address] [place] Protein [Mass/Vol] 7.2 g/dL Normal 6.3-8.2 [facility] Comment on above: Performed By: #### L AB46, [id number], [id number], LAB17 ####Senior Telecommunications Technician: ARA WRIGHT ([phone])[facility] (SWRLAB)[address] [place] [address] [place] Sodium [Moles/Vol] 128 mmol/L Low 135-145 [facility] Comment on above: Performed By: #### L AB46, [id number], [id number], LAB17 ####Senior Telecommunications Technician: ARA WRIGHT ([phone])[facility] IRISAN (SWRLAB)[address] Urea nitrogen [Mass/Vol] 8 mg/dL Low 9-20 [facility] Comment on above: Performed By: #### L AB46, [id number], [id number], LAB17 ####Senior Telecommunications Technician: ARA WRIGHT ([phone])[facility] SJMARILYN (SWRLAB)[address] CERVICAL SPINE WO IV CONT RASTon 04-04-2024 CT CERVICAL SPINE WO IV CONTRAST Normal [facility] CT Cervical spine WO contras ton 04-04-2024 [facility] 1960 [id number] Exam Date/Time: 04/04/2024 16:40 Procedure: CT CERVICAL [...] noncontrast study. Other: Lung apices are unremarkable. [facility] Don Melara MD - 04/04/2024 [facility]: [facility] 1960 [id number] Exam Date/Time: 04/04/2024 16:40 Procedure: CT CERVICAL [...] Signed Date/Time: 04/04/2024 4:53 PM EDT [facility] Radiology Study observation (narrative) [facility] CT HEAD WO IV CONTRASTon CT HEAD WO IV CONTRAST Normal [facility] CT Head WO contraston 2023 Patient Name: [...] noncontrast study. Other: Lung apices are unremarkable. [facility] Don Melara MD - 04/04/2024 Patient Name: WOODY NI : 1960 [facility]#: [id number] Exam Date/Time: 04/04/2024 16:40 Procedure: CT HEAD [...] Signed Date/Time: 04/04/2024 4:53 PM EDT [facility] Radiology Study observation (narrative) [facility] Comprehensive metabolic 1998 panelon 04-04-2024 Albumin [Mass/Vol] 4.2 g/dL 3.5 - 5.0 g/dL [facility] ALP [Catalytic activity/Vol] 67 U/L 38 - 126 U/L [facility] ALT [Catalytic activity/Vol] 17 U/L 0 - 49 U/L [facility] Anion gap [Moles/Vol] 14 mmol/L High 3 - 13 mmol/L [facility] AST [Catalytic activity/Vol] 39 U/L 15 - 46 U/L [facility] Bilirubin [Mass/Vol] 1.0 mg/dL 0.2 - 1 .3 mg/dL [facility] Calcium [Mass/Vol] 8.8 mg/dL 8.4 - 10. 4 mg/dL [facility] Chloride [Moles/Vol] 98 mmol/L 98 - 10 7 mmol/L [facility] CO2 [Moles/Vol] 16 mmol/L Low 22 - 30 mmol/L [facility] Creatinine [Mass/Vol] 0.92 mg/dL 0.66 - 1.25 mg/dL [facility] GFR/1.73 sq M.predicted MDRD (S/P/Bld) [Vol rate/Area] [facility] Comment on above: Calculation based on the Chronic Kidney Disease Epidemiology Collaboration (CKD-EPI) equation refit without adjustment for race Glucose [Mass/Vol] 97 mg/dL 70 - 100 mg/dL [facility] Potassium [Moles/Vol] 3.5 mmol/L 3.5 - 5.1 mmol/L [facility] Protein [Mass/Vol] 7.2 g/dL 6.3 - 8.2 g/dL [facility] Sodium [Moles/Vol] 128 mmol/L Low 135 - 145 mmol/L [facility] Urea nitrogen [Mass/Vol] 8 mg/dL Low 9 - 20 mg/dL [facility] ED Nursing Noteon 04-04-2024 ED Nursing Note Warm blanket provide d to patient per request. Martha Okeefe RN 04/04/24 1630 Normal [facility] ED Nursing Note Normal [facility] ED Provider Noteon ED Provider Note Normal [facility] ETHANOLon 04-04-2024 ETHANOL IN SER/PLAS 0.201 g/dL High 0.000-0.010 [facility] Comment on above: Result Comment: CLAIRE Rivera COMMENTS:NOTE: This result is for medical treatment only. Analysis performed using non-forensic procedures. Performed By: #### L AB46, [id number], [id number], LAB17 ####Senior Telecommunications Technician: ARA WRIGHT ([phone])[facility] PAO (SWRLAB)[address] Ethanol (Bld) [Mass/Vol]on 0 04-04-2024 Ethanol [Mass/Vol] 0.201 g/dL High 0.000 - 0.010 g/dL [facility] LACTIC ACID WITH REFLEXon Lactate [Moles/Vol] 3.8 mmol/L High 0.7-2.0 [facility] Comment on above: Performed By: #### L [id number] ####Senior Telecommunications Technician: ARA WRIGHT ([phone])[facility] (SWRLAB)[address] [place] [address] Laboratory - Chemistry and C hemistry - challengeon 04-04-2024 Lactate [Moles/Vol] 3.8 mmol/L High 0.7 - 2. 0 mmol/L [facility] Beta hydroxybutyrate [Mass/Vol] 2.29 mg/dL 0.20 - 2.81 mg/dL [facility] Troponin I.cardiac [Mass/Vol] ng/mL NINF - 0.034 ng/mL [facility] Laboratory - Chemistry and C hemistry - challengeOrdered By: Perla Garcia on 04-04-2024 CO2 [Moles/Vol] 19.0 mmol/L Low 24.0 - 28.0 mmol/L [facility] HCO3 (Bld) [Moles/Vol] 17.9 mmol/L Low 23.0 - 27.0 mmol/L [facility] Oxygen (Bld) [Partial pressure] 31 mm[Hg] mm(Hg) [facility] pH (Bld) 7.323 [pH] 7.310 - 7.410 [facility] No Panel Informationon 04-04 Interpretation and review of laboratory results Abnormal [facility] Interpretation and review of laboratory results Normal [facility] Diminished cerebral volume and evidence of chronic microvascular ischemic change without acute intracranial abnormality. Focal encephalomalacia of the anterior left temporal lobe suggesting old ischemic change or infarct. No acute abnormality identified throughout the cervical spine. Multilevel degenerative changes of the cervical spine as discussed. Report Dictated on Electronically Signed By: Don Melara MD Electronically Signed Date/Time: 04/04/2024 4:53 PM EDT [facility] Interpretation and review of laboratory results Abnormal [facility] No Panel InformationOrdered By: Perla Garcia on 04-04-2024 BASE EXCESS -8.0 mmol/L Low -3.0 - 3.0 mmol/L [facility] Interpretation and review of laboratory results Abnormal [facility] pCO2 35 Low [facility] Source Of Oxygen Room Air [facility] No Panel InformationOrdered By: Don Melara on 04-04-2024 [facility] Work Phone: TROPONIN, WITH SERIAL REFLEX on 04-04-2024 Troponin I.cardiac [Mass/Vol] ng/mL Normal <0.034 [facility] Comment on above: Result Comment: CLAIRE Rivera COMMENTS:Patients with high levels of Biotin oral intake (ie >5 mg/day) may have falsely decreased Troponin levels. Performed By: #### L AB46, [id number], [id number], LAB17 ####Senior Telecommunications Technician: ARA WRIGHT ([phone])[facility] ([address] Troponin I.cardiac [Mass/Vol ]on 04-04-2024 Interpretation and review of laboratory results Normal [facility] Patients with high l evels of Biotin oral intake (ie >5 mg/day) may have falsely decreased Troponin levels. [facility] Vital signsOrdered By: Raz Garcia on 04-04-2024 Oxygen saturation in Blood 56.0 % Low 60.0 - 80.0 % [facility] XR Chest Single viewon 04-04 1. No evidence of an acute cardiopulmonary process. Report Dictated on Electronically Signed By: Tom Orourke MD Electronically Signed Date/Time: 04/04/2024 6:12 PM EDT [facility] : 1960 [id number] Exam Date/Time: 04/04/2024 17:37 Procedure: XR CHEST [...] bones and soft tissues are grossly unremarkable. [facility] Tom Orourke MD - 04/04/2024 Patient [...] Signed Date/Time: 04/04/2024 6:12 PM EDT [facility] Radiology Study observation (narrative) [email or web address] XR Chest Single viewOrdered By: Tom Orourke on 04-04-2024 [email or web address] Work Phone: Acetaminophen [Mass/Vol]on 0 03-09-2024 Interpretation and review of laboratory results Abnormal [facility] ED Nursing Noteon 03-09-2024 ED Nursing Note Called pt home numbe r and notified family that pt left his glasses and I will be leaving them with protective services Anna Ramey RN 03/09/24 1545 Normal [facility] ED Nursing Note Normal [facility] ED Nursing Note Received call back f [place] PD that pt home is secured. Pt still wanting to leave. Per Dr. Stevens pt is OK to leave AMA. Pt ride called. Anna Ramey RN 03/09/24 1251 Normal [facility] ED Nursing Note Normal [facility] Laboratory - Chemistry and C hemistry - challengeon 03-09-2024 Glucose [Mass/Vol] 81 mg/dL 70 - 100 mg/dL [facility] Beta hydroxybutyrate [Mass/Vol] 0.81 mg/dL 0.20 - 2.81 mg/dL [facility] Base excess Calc (BldV) [Moles/Vol] -6.6000 mmol/L Low -3 - 3 mmol/L [facility] CO2 (BldV) [Partial pressure] 27.6 mm[Hg] Low [facility] HCO3 (Bld) [Moles/Vol] 16.8 mmol/L Low 23.0 - 27.0 mmol/L [facility] Oxygen (BldV) [Partial pressure] 60.7 mm[Hg] mm Hg [facility] pH (BldV) 7.392 [pH] 7.330 - 7.430 pH [facility] Laboratory - Drug toxicology on 03-09-2024 Acetaminophen [Mass/Vol] ug/mL Low 10.0 - 30.0 ug/mL [facility] Salicylates [Mass/Vol] mg/dL NINF - 20.0 mg/dL [facility] No Panel Informationon 03-09 Interpretation and review of laboratory results Normal [facility] Performed by: [facility], [address] [place] [id number] CLIA ID: [id number] [facility] Interpretation and review of laboratory results Normal [facility] FIO2 [facility] Interpretation and review of laboratory results Abnormal [facility] Performed by: [facility], [address] [facility] [address] CLIA ID: [id number] [facility] Radiology Study observation (narrative) [facility] No Panel InformationOrdered By: Steve Rose on 03-09-2024 ACETONE, SERUM Not detected Toxic > 20 Reporting Limit 5 mg/dL mg/dL [facility] ETHANOL, SERUM 0.203 Reporting Limit 0.01 g/dL g/dL (W/V) [facility] ISOPROPANOL, SERUM Not detected Toxic > 2 0 Reporting Limit 5 mg/dL mg/dL [facility] METHANOL, SERUM Not detected Toxic > 20 mg/dL, Reporting Limit 5 mg/dL mg/dL [facility] Progress Noteon 03-09-2024 Progress Note Normal [facility] Salicylates [Mass/Vol]on Interpretation and review of laboratory results Normal [facility] VOLATILE PANEL,SERUMon 03-09 ACETONE, SERUM-CAT LIST Not detected Normal Toxic > 20 Reporting Limit 5 mg/dL [facility] Comment on above: Performed By: #### L [id number] ####Senior Telecommunications Technician: ARA WRIGHT ([phone])[address] ETHANOL, SERUM-NUMERIC 0.203 g/dL (W/V) Normal R eporting Limit 0.01 g/dL [facility] Comment on above: Performed By: #### L [id number] ####Senior Telecommunications Technician: ARA WRIGHT ([phone])[address] ISOPROPANOL, SERUM-CAT LIST Not detected Normal Toxic > 20 Reporting Limit 5 mg/dL [facility] Comment on above: Result Comment: CLAIRE Rievra COMMENTS:NOTE:These results are for medical treatment only. Analysis performed using non-forensic procedures.This test has not been cleared by the US Food and Drug Administration (FDA). The FDA has determined that such clearance or approval is not necessary. The performance chararcteristics have been determined by the clinical laboratories of [facility]. Performed By: #### L [id number] ####Senior Telecommunications Technician: ARA WRIGHT ([phone])[address] METHANOL, SERUM-CAT LIST Not detected Normal Toxic > 20 mg/dL, Reporting Limit 5 mg/dL [facility] Comment on above: Performed By: #### L [id number] ####Senior Telecommunications Technician: ARA WRIGHT ([id number])[facility] ([facility])[address] [place] [address] Vital signson 03-09-2024 Oxygen saturation in Venous blood 91.2 % [facility] Comment on above: Performed by CLIA ID : [id number] [place], [place] ?Device: [id number] Floor Assembler ID: [id number] ACETAMINOPHEN LEVELon 2023 Acetaminophen [Mass/Vol] ug/mL Low 10.0-30.0 [facility] Comment on above: Performed By: #### L AB34, LAB43, LAB17, [id number], LAB46 ####Senior Telecommunications Technician: TRESSA SANTIZO ([phone])[facility] ([facility] [place] [address] BETA HYDROXYBUTYRATEon 03-08 BETA HYDROXYBUTYRATE 0.81 mg/dL Normal 0.20-2.81 [facility] Comment on above: Performed By: #### L AB34, LAB43, LAB17, [id number], LAB46 ####Senior Telecommunications Technician: TRESSA SANTIZO ([phone])[facility] ([facility])[address] [place] [address] CBC W Auto Differential pane l (Bld)Ordered By: Alen Beavers on 03-08-2024 Basophils (Bld) [#/Vol] 0.0 10*3/uL 0.0 - 0.2 10*3/uL [facility] Basophils/100 WBC (Bld) 0.1 % 0.0 - 2.0 % [facility] Eosinophils (Bld) [#/Vol] 0.0 10*3/uL 0.0 - 0.5 10*3/uL [facility] Eosinophils/100 WBC (Bld) 0.0 % 0.0 - 6.0 % [facility] Erythrocyte distribution width (RBC) [Ratio] 11.9 % 11.5 - 15.0 % [facility] Hematocrit (Bld) [Volume fraction] 37.0 % Low 40.0 - 52.0 % [facility] Hemoglobin (Bld) [Mass/Vol] 13.2 g/dL 13.0 - 18.0 g/dL [email or web address] Immature granulocytes (Bld) [#/Vol] 0.2 10*3/uL High NINF - 0.1 10*3/uL [facility] Immature granulocytes/100 WBC (Bld) 2.2 % High 0.0 - 2.0 % [facility] Interpretation and review of laboratory results Abnormal [facility] Lymphocytes (Bld) [#/Vol] 1.0 10*3/uL 1.0 - 4.3 10*3/uL [facility] Lymphocytes/100 WBC (Bld) 11.6 % Low 15.0 - 45.0 % [facility] MCH (RBC) [Entitic mass] 30.6 pg 26.0 - 34.0 pg [facility] MCHC (RBC) [Mass/Vol] 35.7 % 30.5 - 36.0 % [facility] MCV (RBC) [Entitic vol] 85.6 fL 77.0 - 99.0 fL [email or web address] Monocytes (Bld) [#/Vol] 0.1 10*3/uL 0.0 - 0.9 10*3/uL [facility] Monocytes/100 WBC (Bld) 1.2 % Low 5.0 - 13.0 % [email or web address] Neutrophils (Bld) [#/Vol] 7.6 10*3/uL High 1.8 - 7.5 10*3/uL [facility] Neutrophils/100 WBC (Bld) 84.9 % High 38.0 - 82.0 % [facility] Nucleated RBC/100 WBC (Bld) [Ratio] 0.0 % [email or web address] Platelet mean volume (Bld) [Entitic vol] 9.1 fL 9.0 - 12.7 fL [email or web address] Platelets (Bld) [#/Vol] 204 10*3/uL 140 - 440 10*3/uL [facility] RBC (Bld) [#/Vol] 4.32 10*6/uL Low 4.40 - 5.9 0 10*6/uL [facility] WBC (Bld) [#/Vol] 9.0 10*3/uL 3.6 - 10.7 10*3/uL [facility] CBC WITH AUTO DIFFERENTIALon 03-08-2024 Basophils (Bld) [#/Vol] 0.0 10*3/uL Normal 0.0-0.2 [facility] Comment on above: Performed By: #### L [id number] ####Senior Telecommunications Technician: TRESSA CHRISJAVY ([id number])[facility] ([facility])[address] Basophils/100 WBC (Bld) 0.1 % Normal 0.0-2.0 [facility] Comment on above: Performed By: #### L [id number] ####Senior Telecommunications Technician: TRESSA JONESKALAJAVY ([id number])[facility] ([facility])[address] Eosinophils (Bld) [#/Vol] 0.0 10*3/uL Normal 0.0-0.5 [facility] Comment on above: Performed By: #### L [id number] ####Senior Telecommunications Technician: TRESSA CHRISJAVY ([phone])[facility] ([facility])[address] Eosinophils/100 WBC (Bld) 0.0 % Normal 0.0-6.0 [facility] Comment on above: Performed By: #### L [id number] ####Senior Telecommunications Technician: TRESSA CHRISJAVY ([id number])[facility] ([facility])[address] [place] [address] Erythrocyte distribution width (RBC) [Ratio] 11.9 % Normal 11.5-15.0 [facility] Comment on above: Performed By: #### L [id number] ####Senior Telecommunications Technician: TRESSA CHRISJAVY ([phone])[facility] [place] ([facility])[address] Hematocrit (Bld) [Volume fraction] 37.0 % Low 40.0-52.0 [facility] Comment on above: Performed By: #### L [id number] ####Senior Telecommunications Technician: TRESSA SANTIZO ([id number])[facility] [place] ([facility])[address] Hemoglobin (Bld) [Mass/Vol] 13.2 g/dL Normal 13.0-18.0 [facility] Comment on above: Performed By: #### L [id number] ####Senior Telecommunications Technician: TRESSA SANTIZO ([phone])[facility] (SB[facility])[address] IMMATURE GRANS % 2.2 % High 0.0-2.0 [facility] Comment on above: Performed By: #### L [id number] ####Senior Telecommunications Technician: TRESSA SANTIZO ([phone])[facility] [place] ([facility])[address] IMMATURE GRANS ABSOLUTE 0.2 10*3/uL High <0.1 [facility] Comment on above: Performed By: #### L [id number] ####Senior Telecommunications Technician: TRESSA SANTIZO ([phone])[facility] ([facility])[address] Lymphocytes (Bld) [#/Vol] 1.0 10*3/uL Normal 1.0-4.3 [facility] Comment on above: Performed By: #### L [id number] ####Senior Telecommunications Technician: TRESSA SANTIZO ([phone])[facility] [place] (SBAB)[address] Lymphocytes/100 WBC (Bld) 11.6 % Low 15.0-45.0 [facility] Comment on above: Performed By: #### L [id number] ####Senior Telecommunications Technician: TRESSA SANTIZO ([phone])[facility] ([facility])[address] MCH (RBC) [Entitic mass] 30.6 pg Normal 26.0-34.0 [facility] Comment on above: Performed By: #### L [id number] ####Senior Telecommunications Technician: TRESSA SANTIZO ([phone])[facility] (SB[facility])[address] MCHC 35.7 % Normal 30.5-36.0 [facility] Comment on above: Performed By: #### L [id number] ####Senior Telecommunications Technician: TRESSA CHRISJAVY ([phone])[facility] ([facility])[address] MCV (RBC) [Entitic vol] 85.6 fL Normal 77.0-99.0 [facility] Comment on above: Performed By: #### L [id number] ####Senior Telecommunications Technician: TRESSA CHRISJAVY ([phone])[facility] ([facility])[address] Monocytes (Bld) [#/Vol] 0.1 10*3/uL Normal 0.0-0.9 [facility] Comment on above: Performed By: #### L [id number] ####Senior Telecommunications Technician: TRESSA CHRISJAVY ([phone])[facility] ([facility])[address] [place] [address] [place] Monocytes/100 WBC (Bld) 1.2 % Low 5.0-13.0 [facility] Comment on above: Performed By: #### L [id number] ####Senior Telecommunications Technician: TRESSA SANTIZO ([id number])[facility] [place] ([facility])[address] NEUTROPHILS ABSOLUTE 7.6 10*3/uL High 1.8-7.5 [facility] Comment on above: Performed By: #### L [id number] ####Senior Telecommunications Technician: TRESSA CHRISJAVY ([phone])[facility] [place] ([facility])[address] [place] [address] [place] Neutrophils/100 WBC (Bld) 84.9 % High 38.0-82.0 [facility] Comment on above: Performed By: #### L [id number] ####Senior Telecommunications Technician: TRESSA SANTIZO ([phone])[facility] [place] ([facility])[address] NRBC 0.0 /100 WBCs Normal 0.0-2.0 [facility] Comment on above: Performed By: #### L [id number] ####Senior Telecommunications Technician: TRESSA SANTIZO ([id number])[facility] [place] ([facility])[address] Platelet mean volume (Bld) [Entitic vol] 9.1 fL Normal 9.0-12.7 [facility] Comment on above: Performed By: #### L [id number] ####Senior Telecommunications Technician: TRESSA SANTIZO ([id number])[facility] [place] ([facility])[address] Platelets (Bld) [#/Vol] 204 10*3/uL Normal 140-440 [facility] Comment on above: Performed By: #### L [id number] ####Senior Telecommunications Technician: TRESSA SANTIZO ([id number])[facility] [place] ([facility])[address] RBC (Bld) [#/Vol] 4.32 10*6/uL Low 4.40-5.90 [facility] Comment on above: Performed By: #### L [id number] ####Senior Telecommunications Technician: TRESSA SANTIZO ([phone])[facility] [place] ([facility])[address] WBC (Bld) [#/Vol] 9.0 10*3/uL Normal 3.6-10.7 [facility] Comment on above: Performed By: #### L [id number] ####Senior Telecommunications Technician: TRESSA SANTIZO ([phone])[facility] [place] ([facility])[address] COMPREHENSIVE METABOLIC PANE Peter 03-08-2024 Albumin [Mass/Vol] 4.2 g/dL Normal 3.5-5.0 [facility] Comment on above: Performed By: #### L AB34, LAB43, LAB17, [id number], LAB46 ####Senior Telecommunications Technician: TRESSA SANTIZO ([phone])[facility] [place] ([facility])[address] ALP [Catalytic activity/Vol] 49 U/L Normal 38-126 [facility] Comment on above: Performed By: #### L AB34, LAB43, LAB17, [id number], LAB46 ####Senior Telecommunications Technician: TRESSA SANTIZO ([id number])[facility] (SB[facility])[address] ALT [Catalytic activity/Vol] 33 U/L Normal 0-49 [facility] Comment on above: Performed By: #### L AB34, LAB43, LAB17, [id number], LAB46 ####Senior Telecommunications Technician: TRESSA SANTIZO ([phone])[facility] ([facility])[address] Anion gap [Moles/Vol] 19 mmol/L High 3-13 [facility] Comment on above: Performed By: #### L AB34, LAB43, LAB17, [id number], LAB46 ####Senior Telecommunications Technician: TRESSA SANTIZO ([id number])[facility] ([facility])[address] AST [Catalytic activity/Vol] 35 U/L Normal 15-46 [facility] Comment on above: Performed By: #### L AB34, LAB43, LAB17, [id number], LAB46 ####Senior Telecommunications Technician: TRESSA SANTIZO ([id number])[facility] ([facility])[address] Bilirubin [Mass/Vol] 0.9 mg/dL Normal 0.2-1.3 [facility] Comment on above: Performed By: #### L AB34, LAB43, LAB17, [id number], LAB46 ####Senior Telecommunications Technician: TRESSA SANTIZO ([phone])[facility] ([facility])[address] Calcium [Mass/Vol] 8.7 mg/dL Normal 8.4-10.4 [facility] Comment on above: Performed By: #### L AB34, LAB43, LAB17, NVK0908, LAB46 ####Senior Telecommunications Technician: TRESSA SANTIZO ([phone])[facility] ([facility])[address] Chloride [Moles/Vol] 96 mmol/L Low 98-107 [facility] Comment on above: Performed By: #### L AB34, LAB43, LAB17, [id number], LAB46 ####Senior Telecommunications Technician: TRESSA SANTIZO ([phone])[facility] ([facility])[address] [place] [address] [place] CO2 [Moles/Vol] 14 mmol/L Low 22-30 [facility] Comment on above: Performed By: #### L AB34, LAB43, LAB17, QIO9760, LAB46 ####Senior Telecommunications Technician: TRESSA SANTIZO ([id number])[facility] ([facility])[address] Creatinine [Mass/Vol] 0.89 mg/dL Normal 0.66-1.25 [facility] Comment on above: Performed By: #### L AB34, LAB43, LAB17, [id number], LAB46 ####Senior Telecommunications Technician: TRESSA SANTIZO ([phone])[facility] ([facility])[address] GLOMERULAR FILTRATION RATE ML/MIN/1.73 SQ M.PREDICTED >90.0 Normal >60.0 [facility] Comment on above: Result Comment: Calc ulation based on the Chronic Kidney Disease Epidemiology Collaboration (CKD-EPI) equation refit without adjustment for race Performed By: #### L AB34, LAB43, LAB17, [id number], LAB46 ####Senior Telecommunications Technician: TRESSA SANTIZO ([phone])[facility] ([facility])[address] Glucose [Mass/Vol] 138 mg/dL High 70-100 [facility] Comment on above: Performed By: #### L AB34, LAB43, LAB17, [id number], LAB46 ####Senior Telecommunications Technician: TRESSA SANTIZO ([phone])[facility] ([facility])[address] Potassium [Moles/Vol] 4.4 mmol/L Normal 3.5-5.1 [facility] Comment on above: Performed By: #### L AB34, LAB43, LAB17, [id number], LAB46 ####Senior Telecommunications Technician: TRESSA SANTIZO ([id number])[facility] ([facility])[address] Protein [Mass/Vol] 7.1 g/dL Normal 6.3-8.2 [facility] Comment on above: Performed By: #### L AB34, LAB43, LAB17, [id number], LAB46 ####Senior Telecommunications Technician: TRESSA SANTIZO ([phone])[facility] ([facility])[address] Sodium [Moles/Vol] 130 mmol/L Low 135-145 [facility] Comment on above: Performed By: #### L AB34, LAB43, LAB17, [id number], LAB46 ####Senior Telecommunications Technician: TRESSA SANTIZO ([phone])[facility] (HLAB)[address] Urea nitrogen [Mass/Vol] 16 mg/dL Normal 9-20 [facility] Comment on above: Performed By: #### L AB34, LAB43, LAB17, [id number], LAB46 ####Senior Telecommunications Technician: TRESSA SANTIZO ([phone])[facility] ([facility])[address] Comprehensive metabolic 1998 panelon 03-08-2024 Albumin [Mass/Vol] 4.2 g/dL 3.5 - 5.0 g/dL [facility] ALP [Catalytic activity/Vol] 49 U/L 38 - 126 U/L [facility] ALT [Catalytic activity/Vol] 33 U/L 0 - 49 U/L [facility] Anion gap [Moles/Vol] 19 mmol/L High 3 - 13 mmol/L [facility] AST [Catalytic activity/Vol] 35 U/L 15 - 46 U/L [facility] Bilirubin [Mass/Vol] 0.9 mg/dL 0.2 - 1 .3 mg/dL [facility] Calcium [Mass/Vol] 8.7 mg/dL 8.4 - 10. 4 mg/dL [facility] Chloride [Moles/Vol] 96 mmol/L Low 98 - 10 7 mmol/L [facility] CO2 [Moles/Vol] 14 mmol/L Low 22 - 30 mmol/L [facility] Creatinine [Mass/Vol] 0.89 mg/dL 0.66 - 1.25 mg/dL [facility] GFR/1.73 sq M.predicted MDRD (S/P/Bld) [Vol rate/Area] - PINF [facility] Comment on above: Calculation based on the Chronic Kidney Disease Epidemiology Collaboration (CKD-EPI) equation refit without adjustment for race Glucose [Mass/Vol] 138 mg/dL High 70 - 100 mg/dL [facility] Potassium [Moles/Vol] 4.4 mmol/L 3.5 - 5.1 mmol/L [facility] Protein [Mass/Vol] 7.1 g/dL 6.3 - 8.2 g/dL [facility] Sodium [Moles/Vol] 130 mmol/L Low 135 - 145 mmol/L [facility] Urea nitrogen [Mass/Vol] 16 mg/dL 9 - 20 mg/dL [facility] DRUGS OF ABUSEon 03-08-2024 AMPHETAMINE SCREEN Negative Normal [facility] Comment on above: Performed By: #### L [id number] ####Senior Telecommunications Technician: TRESSA SANTIZO ([id number])[facility] ([facility])[address] [place] [address] BARBITURATES SCREEN Negative Normal [facility] Comment on above: Performed By: #### L [id number] ####Senior Telecommunications Technician: TRESSA SANTIZO ([phone])[facility] ([facility])[address] [place] [address] BENZODIAZEPINE SCREEN Negative Normal [facility] Comment on above: Performed By: #### L [id number] ####Senior Telecommunications Technician: TRESSA SANTIZO ([phone])[facility] ([facility])[address] COCAINE METAB. SCREEN Negative Normal [facility] Comment on above: Performed By: #### L [id number] ####Senior Telecommunications Technician: TRESSA JONESALEKSANDR ([phone])[facility] ([facility])[address] METHADONE SCREEN Negative Normal [facility] Comment on above: Performed By: #### L [id number] ####Senior Telecommunications Technician: TRESSA JONESALEKSANDR ([phone])[facility] ([facility])[address] OPIATES SCREEN Negative Normal [facility] Comment on above: Performed By: #### L [id number] ####Senior Telecommunications Technician: TRESSA CHRISJAVY ([phone])[facility] ([facility])[address] OXYCODONE SCREEN Negative Normal [facility] Comment on above: Performed By: #### L [id number] ####Senior Telecommunications Technician: TRESSA JONESALEKSANDR ([phone])[facility] ([facility])[address] PHENCYCLIDINE SCREEN Negative Normal [facility] Comment on above: Result Comment: CLAIRE [...] under separate order. Performed By: #### L [id number] ####Senior Telecommunications Technician: TRESSA CHRISJAVY ([phone])[facility] ([facility])[address] ED Nursing Noteon 03-08-2024 ED Nursing Note Pt. 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 Seizure pads applied to hospital bed. Marjan An RN 03/08/24 0690 Normal [facility] ED Nursing Note Normal [facility] ED Nursing Note Normal [facility] ED Provider Noteon ED Provider Note Normal [facility] ETHANOLon 03-08-2024 ETHANOL IN SER/PLAS 0.284 g/dL High 0.000-0.010 [facility] [facility] Comment on above: Result Comment: ALDAE R COMMENTS:NOTE: This result is for medical treatment only. Analysis performed using non-forensic procedures. Performed By: #### L AB34, LAB43, LAB17, [id number], LAB46 ####Senior Telecommunications Technician: TRESSA SANTIZO ([phone])[facility] ([facility])[address] Ethanol (Bld) [Mass/Vol]on 0 03-08-2024 Ethanol [Mass/Vol] 0.284 g/dL High 0.000 - 0.010 g/dL [facility] Laboratory - Drug toxicology Ordered By: Maricruz Mesa on 03-08-2024 Amphetamines Screen method >1000 ng/mL Ql (U) Negative [facility] Barbiturates Screen method >200 ng/mL Ql (U) Negative [facility] Benzodiazepines Ql (U) Negative [facility] Methadone Screen Ql (U) Negative [facility] Opiates Screen Ql (U) Negative [facility] oxyCODONE Ql (U) Negative [facility] Phencyclidine Ql (U) Negative [facility] Laboratory - Microbiology an d Antimicrobial susceptibilityon 03-08-2024 SARS-CoV-2 (COVID-19) Ag IA.rapid Ql (Resp) Negative Negative [facility] Comment on above: A negative result do es not rule out the possibility of SARS-CoV-2 infection. NAAT-based methods should be considered for symptomatic patients presenting greater than seven days after onset of symptoms. Method: Lateral flow immunoassay. Fact sheets for healthcare providers and patients can be found at the following sites: https://www.fda.gov/media/169911/download https://www.fda.gov/media/587580/download No Panel InformationOrdered By: Maricruz Mesa on 03-08-2024 COCAINE METAB. SCREEN Negative [facility] The expected value f or all of [...] is needed, request confirmation under separate order. [facility] No Panel Informationon 03-08 Interpretation and review of laboratory results Abnormal [facility] Radiology Study observation (narrative) [facility] SALICYLATEon 03-08-2024 SALICYLATES <1.0 Normal <20.0 [facility] Comment on above: Performed By: #### L AB34, LAB43, LAB17, [id number], LAB46 ####Senior Telecommunications Technician: TRESSA SANTIZO ([phone])[facility] ([facility])[address] [place] [address] SARS-COV-2 ANTIGENon 024 SARS-COV-2 ANTIGEN Normal [facility] Comment on above: Performed By: #### L [id number] ####Senior Telecommunications Technician: TRESSA SANTIZO ([phone])[facility] ([facility])[address] [place] [address] SARS-CoV-2 (COVID-19) Ag IA. rapid Ql (Resp)on 03-08-2024 Interpretation and review of laboratory results Normal [facility] 36on 02-26-2024 36 Normal [facility] CARECOORDon 01-27-2024 CARECOORD Patient Choice Patient Name: WOODY NI Date of : 1960 Normal [facility] CARECOORDon 01-26-2024 CAR[place]OORD Normal [facility] CAR[place]OORD Normal [facility] CARECONASHUA Asked by TCC to set transport to [facility]. 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 Normal [facility] Discharge med list transmitted to [facility] via [facility] per [facility] request. [id number] was entered into [employer] for the [facility]. Normal [facility] CBC (HEMOGRAM)on 01-26-2024 Erythrocyte distribution width (RBC) [Ratio] 13.5 % Normal 11.5-15.0 [facility] Comment on above: Performed By: #### L [id number] ####Senior Telecommunications Technician: ARA WRIGHT ([phone])[address] Hematocrit (Bld) [Volume fraction] 32.2 % Low 40.0-52.0 [facility] Comment on above: Performed By: #### L [id number] ####Senior Telecommunications Technician: ARA WRIGHT ([phone])[address] Hemoglobin (Bld) [Mass/Vol] 11.2 g/dL Low 13.0-18.0 [facility] Comment on above: Performed By: #### L [id number] ####Senior Telecommunications Technician: ARA WRIGHT ([id number])[address] MCH (RBC) [Entitic mass] 31.7 pg Normal 26.0-34.0 [facility] Comment on above: Performed By: #### L [id number] ####Senior Telecommunications Technician: ARA WRIGHT ([phone])[address] MCHC 34.8 % Normal 30.5-36.0 [facility] Comment on above: Performed By: #### L [id number] ####Senior Telecommunications Technician: ARA WRIGHT ([id number])[facility])[address] [place] [address] MCV (RBC) [Entitic vol] 91.2 fL Normal 77.0-99.0 [facility] Comment on above: Performed By: #### L [id number] ####Senior Telecommunications Technician: ARA WRIGHT ([id number])[facility])[address] [place] [address] Platelet mean volume (Bld) [Entitic vol] 9.1 fL Normal 9.0-12.7 [facility] Comment on above: Performed By: #### L [id number] ####Senior Telecommunications Technician: ARA WRIGHT ([id number])[facility])[address] [place] [address] Platelets (Bld) [#/Vol] 151 10*3/uL Normal 140-440 [facility] Comment on above: Performed By: #### L [id number] ####Senior Telecommunications Technician: ARA WRIGHT ([phone])[facility])[address] [place] [address] RBC (Bld) [#/Vol] 3.53 10*6/uL Low 4.40-5.90 [facility] Comment on above: Performed By: #### L [id number] ####Senior Telecommunications Technician: ARA WRIGHT ([phone])[facility])[address] [place] [address] WBC (Bld) [#/Vol] 6.1 10*3/uL Normal 3.6-10.7 [facility] Comment on above: Performed By: #### L [id number] ####Senior Telecommunications Technician: ARA WRIGHT ([id number])[facility])[address] [place] [address] CBC panel Auto (Bld)on 04-09 -2024 Erythrocyte distribution width (RBC) [Ratio] 13.5 % 11.5 - 15.0 % [facility] Hematocrit (Bld) [Volume fraction] 32.2 % Low 40.0 - 52.0 % [facility] Hemoglobin (Bld) [Mass/Vol] 11.2 g/dL Low 13.0 - 18.0 g/dL [facility] Interpretation and review of laboratory results Abnormal [facility] MCH (RBC) [Entitic mass] 31.7 pg 26.0 - 34.0 pg [facility] MCHC (RBC) [Mass/Vol] 34.8 % 30.5 - 36.0 % [facility] MCV (RBC) [Entitic vol] 91.2 fL 77.0 - 99.0 fL [facility] Platelet mean volume (Bld) [Entitic vol] 9.1 fL 9.0 - 12.7 fL [facility] Platelets (Bld) [#/Vol] 151 10*3/uL 140 - 440 10*3/uL [facility] RBC (Bld) [#/Vol] 3.53 10*6/uL Low 4.40 - 5.9 0 10*6/uL [facility] WBC (Bld) [#/Vol] 6.1 10*3/uL 3.6 - 10.7 10*3/uL [facility] COMPREHENSIVE METABOLIC PANE Peter 01-26-2024 Albumin [Mass/Vol] 3.8 g/dL Normal 3.5-5.0 [facility] Comment on above: Performed By: #### L AB17 ####Senior Telecommunications Technician: ARA WRIGHT ([phone])[address] ALP [Catalytic activity/Vol] 50 U/L Normal 38-126 [facility] Comment on above: Performed By: #### L AB17 ####Senior Telecommunications Technician: ARA WRIGHT ([id number])[address] ALT [Catalytic activity/Vol] 18 U/L Normal 0-49 [facility] Comment on above: Performed By: #### L AB17 ####Senior Telecommunications Technician: ARA WRIGHT ([id number])[facility] ([facility])[address] [place] [address] Anion gap [Moles/Vol] 10 mmol/L Normal 3-13 [facility] Comment on above: Performed By: #### L AB17 ####Senior Telecommunications Technician: ARA WRIGHT ([phone])[facility] ([facility])[address] [place] [address] AST [Catalytic activity/Vol] 22 U/L Normal 15-46 [facility] Comment on above: Performed By: #### L AB17 ####Senior Telecommunications Technician: ARA WRIGHT ([id number])[facility] ([facility])[address] [place] [address] Bilirubin [Mass/Vol] 0.6 mg/dL Normal 0.2-1.3 [facility] Comment on above: Performed By: #### L AB17 ####Senior Telecommunications Technician: ARA WRIGHT ([id number])[facility] ([facility])[address] [place] [address] Calcium [Mass/Vol] 8.9 mg/dL Normal 8.4-10.4 [facility] Comment on above: Performed By: #### L AB17 ####Senior Telecommunications Technician: ARA WRIGHT ([phone])[facility] ([facility])[address] [place] [address] Chloride [Moles/Vol] 101 mmol/L Normal 98-107 [facility] Comment on above: Performed By: #### L AB17 ####Senior Telecommunications Technician: ARA WRIGHT ([id number])[facility] ([facility])[address] [place] [address] [place] CO2 [Moles/Vol] 17 mmol/L Low 22-30 [facility] Comment on above: Performed By: #### L AB17 ####Senior Telecommunications Technician: ARA WRIGHT ([phone])[facility] ([facility])[address] [place] [address] Creatinine [Mass/Vol] 0.92 mg/dL Normal 0.66-1.25 [facility] Comment on above: Performed By: #### L AB17 ####Senior Telecommunications Technician: ARA WRIGHT ([phone])[facility] ([facility])[address] [place] [address] GLOMERULAR FILTRATION RATE ML/MIN/1.73 SQ M.PREDICTED >90.0 Normal >60.0 [facility] Comment on above: Result Comment: Calc ulation based on the Chronic Kidney Disease Epidemiology Collaboration (CKD-EPI) equation refit without adjustment for race Performed By: #### L AB17 ####Senior Telecommunications Technician: ARA WRIGHT ([id number])[facility] ([facility])[address] [place] [address] Glucose [Mass/Vol] 95 mg/dL Normal 70-100 [facility] Comment on above: Performed By: #### L AB17 ####Senior Telecommunications Technician: ARA WRIGHT ([phone])[facility] ([facility])[address] [place] [address] Potassium [Moles/Vol] 3.7 mmol/L Normal 3.5-5.1 [facility] Comment on above: Performed By: #### L AB17 ####Senior Telecommunications Technician: ARA WRIGHT ([phone])[facility] ([facility])[address] [place] [address] Protein [Mass/Vol] 6.7 g/dL Normal 6.3-8.2 [facility] Comment on above: Performed By: #### L AB17 ####Senior Telecommunications Technician: ARA WRIGHT ([id number])[facility] ([facility])[address] [place] [address] [place] Sodium [Moles/Vol] 128 mmol/L Low 135-145 [facility] Comment on above: Performed By: #### L AB17 ####Senior Telecommunications Technician: ARA WRIGHT ([id number])[facility] ([facility])[address] [place] [address] [place] Urea nitrogen [Mass/Vol] 5 mg/dL Low 9-20 [facility] Comment on above: Performed By: #### L AB17 ####Senior Telecommunications Technician: ARA WRIGHT ([id number])[facility] ([facility])[address] [place], [place] [id number] [facility] Comprehensive metabolic 1998 panelon 01-26-2024 Albumin [Mass/Vol] 3.8 g/dL 3.5 - 5.0 g/dL [facility] ALP [Catalytic activity/Vol] 50 U/L 38 - 126 U/L [facility] ALT [Catalytic activity/Vol] 18 U/L 0 - 49 U/L [facility] Anion gap [Moles/Vol] 10 mmol/L 3 - 13 mmol/L [facility] AST [Catalytic activity/Vol] 22 U/L 15 - 46 U/L [facility] Bilirubin [Mass/Vol] 0.6 mg/dL 0.2 - 1 .3 mg/dL [facility] Calcium [Mass/Vol] 8.9 mg/dL 8.4 - 10. 4 mg/dL [facility] Chloride [Moles/Vol] 101 mmol/L 98 - 10 7 mmol/L [facility] CO2 [Moles/Vol] 17 mmol/L Low 22 - 30 mmol/L [facility] Creatinine [Mass/Vol] 0.92 mg/dL 0.66 - 1.25 mg/dL [facility] GFR/1.73 sq M.predicted MDRD (S/P/Bld) [Vol rate/Area] - PINF [facility] Comment on above: Calculation based on the Chronic Kidney Disease Epidemiology Collaboration (CKD-EPI) equation refit without adjustment for race Glucose [Mass/Vol] 95 mg/dL 70 - 100 mg/dL [facility] Interpretation and review of laboratory results Abnormal [facility] Potassium [Moles/Vol] 3.7 mmol/L 3.5 - 5.1 mmol/L [facility] Protein [Mass/Vol] 6.7 g/dL 6.3 - 8.2 g/dL [facility] Sodium [Moles/Vol] 128 mmol/L Low 135 - 145 mmol/L [facility] Urea nitrogen [Mass/Vol] 5 mg/dL Low 9 - 20 mg/dL [facility] Progress Noteon 01-26-2024 Progress Note Normal [facility] [id number] 01-25-2024 [id number] Aged Or Disabled Care Worker following case for Discharge Needs. Asked to follow per tcc and check cost/benefits for home infusion. Will send to [facility] to inquire. Normal [facility] BASIC METABOLIC PANELon 04-0 Anion gap [Moles/Vol] 11 mmol/L Normal 3-13 [facility] Comment on above: Performed By: #### L AB15, [id number] ####Senior Telecommunications Technician: ARA WRIGHT ([id number])[facility] ([facility])[address] [place] [address] Calcium [Mass/Vol] 9.3 mg/dL Normal 8.4-10.4 [facility] Comment on above: Performed By: #### L AB15, [id number] ####Senior Telecommunications Technician: ARA WRIGHT ([id number])[facility] ([facility])[address] [place] [address] Chloride [Moles/Vol] 102 mmol/L Normal 98-107 [facility] Comment on above: Performed By: #### L AB15, [id number] ####Senior Telecommunications Technician: ARA WRIGHT ([id number])[facility] ([facility])[address] [place] [address] CO2 [Moles/Vol] 16 mmol/L Low 22-30 [facility] Comment on above: Performed By: #### L AB15, [id number] ####Senior Telecommunications Technician: ARA WRIGHT ([id number])[facility] ([facility])[address] [place] [address] Creatinine [Mass/Vol] 0.94 mg/dL Normal 0.66-1.25 [facility] Comment on above: Performed By: #### L AB15, [id number] ####Senior Telecommunications Technician: ARA WRIGHT ([id number])[facility] ([facility])[address] [place] [address] GLOMERULAR FILTRATION RATE ML/MIN/1.73 SQ M.PREDICTED >90.0 Normal >60.0 [facility] Comment on above: Result Comment: Calc ulation based on the Chronic Kidney Disease Epidemiology Collaboration (CKD-EPI) equation refit without adjustment for race Performed By: #### L AB15, [id number] ####Senior Telecommunications Technician: ARA WRIGHT ([id number])[facility] ([facility])[address] [place] [address] Glucose [Mass/Vol] 100 mg/dL Normal 70-100 [facility] Comment on above: Performed By: #### L AB15, [id number] ####Senior Telecommunications Technician: ARA WRIGHT ([id number])[facility] ([facility])[address] [place] [address] Potassium [Moles/Vol] 3.6 mmol/L Normal 3.5-5.1 [facility] Comment on above: Performed By: #### L AB15, [id number] ####Senior Telecommunications Technician: ARA WRIGHT ([id number])[facility] ([facility])[address] [place] [address] Sodium [Moles/Vol] 129 mmol/L Low 135-145 [facility] Comment on above: Performed By: #### L AB15, [id number] ####Senior Telecommunications Technician: ARA WRIGHT ([id number])[facility] ([facility])[address] [place] [address] Urea nitrogen [Mass/Vol] 9 mg/dL Normal 9-20 [facility] Comment on above: Performed By: #### L AB15, [id number] ####Senior Telecommunications Technician: ARA WRIGHT ([id number])[facility] ([facility])[address] [place] [address] Basic metabolic 1998 panelon 01-25-2024 Anion gap [Moles/Vol] 11 mmol/L 3 - 13 mmol/L [facility] Calcium [Mass/Vol] 9.3 mg/dL 8.4 - 10. 4 mg/dL [facility] Chloride [Moles/Vol] 102 mmol/L 98 - 10 7 mmol/L [facility] CO2 [Moles/Vol] 16 mmol/L Low 22 - 30 mmol/L [facility] Creatinine [Mass/Vol] 0.94 mg/dL 0.66 - 1.25 mg/dL [facility] GFR/1.73 sq M.predicted MDRD (S/P/Bld) [Vol rate/Area] - PINF [facility] Comment on above: Calculation based on the Chronic Kidney Disease Epidemiology Collaboration (CKD-EPI) equation refit without adjustment for race Glucose [Mass/Vol] 100 mg/dL 70 - 100 mg/dL [facility] Potassium [Moles/Vol] 3.6 mmol/L 3.5 - 5.1 mmol/L [facility] Sodium [Moles/Vol] 129 mmol/L Low 135 - 145 mmol/L [facility] Urea nitrogen [Mass/Vol] 9 mg/dL 9 - 20 mg/dL [facility] CARECOORDon 01-25-2024 CARECOORD Updated notes placed to [facility] via [facility] per TCC request. Await review and response regarding ability to accept. TCC notified. Normal [facility] CARECOORD Normal [facility] CBC W Auto Differential pane l (Bld)on 01-25-2024 Basophils (Bld) [#/Vol] 0.0 10*3/uL 0.0 - 0.2 10*3/uL [facility] Basophils/100 WBC (Bld) 0.7 % 0.0 - 2.0 % [facility] Eosinophils (Bld) [#/Vol] 0.1 10*3/uL 0.0 - 0.5 10*3/uL [facility] Eosinophils/100 WBC (Bld) 2.0 % 0.0 - 6.0 % [facility] Erythrocyte distribution width (RBC) [Ratio] 13.7 % 11.5 - 15.0 % [facility] Hematocrit (Bld) [Volume fraction] 34.0 % Low 40.0 - 52.0 % [facility] Hemoglobin (Bld) [Mass/Vol] 11.7 g/dL Low 13.0 - 18.0 g/dL [facility] Immature granulocytes (Bld) [#/Vol] 0.0 10*3/uL NINF - 0.1 10*3/uL [facility] Immature granulocytes/100 WBC (Bld) 0.3 % 0.0 - 2.0 % [facility] Interpretation and review of laboratory results Abnormal [facility] Lymphocytes (Bld) [#/Vol] 2.3 10*3/uL 1.0 - 4.3 10*3/uL [facility] Lymphocytes/100 WBC (Bld) 39.1 % 15.0 - 45.0 % [facility] MCH (RBC) [Entitic mass] 31.5 pg 26.0 - 34.0 pg [facility] MCHC (RBC) [Mass/Vol] 34.4 % 30.5 - 36.0 % [facility] MCV (RBC) [Entitic vol] 91.6 fL 77.0 - 99.0 fL [facility] Monocytes (Bld) [#/Vol] 0.7 10*3/uL 0.0 - 0.9 10*3/uL [facility] Monocytes/100 WBC (Bld) 11.0 % 5.0 - 13.0 % [facility] Neutrophils (Bld) [#/Vol] 2.8 10*3/uL 1.8 - 7.5 10*3/uL [facility] Neutrophils/100 WBC (Bld) 46.9 % 38.0 - 82.0 % [facility] Nucleated RBC/100 WBC (Bld) [Ratio] 0.0 % [facility] Platelet mean volume (Bld) [Entitic vol] 9.4 fL 9.0 - 12.7 fL [facility] Platelets (Bld) [#/Vol] 141 10*3/uL 140 - 440 10*3/uL [facility] RBC (Bld) [#/Vol] 3.71 10*6/uL Low 4.40 - 5.9 0 10*6/uL [facility] WBC (Bld) [#/Vol] 6.0 10*3/uL 3.6 - 10.7 10*3/uL [facility] CBC WITH AUTO DIFFERENTIALon 01-25-2024 Basophils (Bld) [#/Vol] 0.0 10*3/uL Normal 0.0-0.2 [facility] Comment on above: Performed By: #### L [id number] ####Senior Telecommunications Technician: ARA WRIGHT ([id number])[address] Basophils/100 WBC (Bld) 0.7 % Normal 0.0-2.0 [facility] Comment on above: Performed By: #### L [id number] ####Senior Telecommunications Technician: ARA WRIGHT ([phone])[facility])[address] [place] [address] Eosinophils (Bld) [#/Vol] 0.1 10*3/uL Normal 0.0-0.5 [facility] Comment on above: Performed By: #### L [id number] ####Senior Telecommunications Technician: ARA WRIGHT ([phone])[facility])[address] [place] [address] Eosinophils/100 WBC (Bld) 2.0 % Normal 0.0-6.0 [facility] Comment on above: Performed By: #### L [id number] ####Senior Telecommunications Technician: ARA WRIGHT ([phone])[facility])[address] [place] [address] Erythrocyte distribution width (RBC) [Ratio] 13.7 % Normal 11.5-15.0 [facility] Comment on above: Performed By: #### L [id number] ####Senior Telecommunications Technician: ARA WRIGHT ([phone])[address] Hematocrit (Bld) [Volume fraction] 34.0 % Low 40.0-52.0 [facility] Comment on above: Performed By: #### L [id number] ####Senior Telecommunications Technician: ARA WRIGHT ([id number])[address] Hemoglobin (Bld) [Mass/Vol] 11.7 g/dL Low 13.0-18.0 [facility] Comment on above: Performed By: #### L [id number] ####Senior Telecommunications Technician: ARA WRIGHT ([id number])[address] IMMATURE GRANS % 0.3 % Normal 0.0-2.0 [facility] Comment on above: Performed By: #### L [id number] ####Senior Telecommunications Technician: ARA WRIGHT ([id number])[address] IMMATURE GRANS ABSOLUTE 0.0 10*3/uL Normal <0.1 [facility] Comment on above: Performed By: #### L [id number] ####Senior Telecommunications Technician: ARA WRIGHT ([id number])[facility])[address] [place] [address] Lymphocytes (Bld) [#/Vol] 2.3 10*3/uL Normal 1.0-4.3 [facility] Comment on above: Performed By: #### L [id number] ####Senior Telecommunications Technician: ARA WRIGHT ([phone])[facility])[address] [place] [address] Lymphocytes/100 WBC (Bld) 39.1 % Normal 15.0-45.0 [facility] Comment on above: Performed By: #### L [id number] ####Senior Telecommunications Technician: ARA WRIGHT ([id number])[address] MCH (RBC) [Entitic mass] 31.5 pg Normal 26.0-34.0 [facility] Comment on above: Performed By: #### L [id number] ####Senior Telecommunications Technician: ARA WRIGHT ([phone])[facility])[address] [place] [address] MCHC 34.4 % Normal 30.5-36.0 [facility] Comment on above: Performed By: #### L [id number] ####Senior Telecommunications Technician: ARA WRIGHT ([id number])[facility])[address] [place] [address] MCV (RBC) [Entitic vol] 91.6 fL Normal 77.0-99.0 [facility] Comment on above: Performed By: #### L [id number] ####Senior Telecommunications Technician: ARA WRIGHT ([id number])[facility])[address] [place] [address] Monocytes (Bld) [#/Vol] 0.7 10*3/uL Normal 0.0-0.9 [facility] Comment on above: Performed By: #### L [id number] ####Senior Telecommunications Technician: ARA WRIGHT ([id number])[facility] [place] [address] Monocytes/100 WBC (Bld) 11.0 % Normal 5.0-13.0 [facility] Comment on above: Performed By: #### L [id number] ####Senior Telecommunications Technician: ARA WRIGHT ([phone])[facility] ([facility])[address] [place] [address] NEUTROPHILS ABSOLUTE 2.8 10*3/uL Normal 1.8-7.5 [facility] Comment on above: Performed By: #### L [id number] ####Senior Telecommunications Technician: ARA WRIGHT ([phone])[facility])[address] [place] [address] Neutrophils/100 WBC (Bld) 46.9 % Normal 38.0-82.0 [facility] Comment on above: Performed By: #### L [id number] ####Senior Telecommunications Technician: ARA WRIGHT ([id number])[facility] ([facility])[address] [place] [address] NRBC 0.0 /100 WBCs Normal 0.0-2.0 [facility] Comment on above: Performed By: #### L [id number] ####Senior Telecommunications Technician: ARA WRIGHT ([id number])[facility])[address] [place] [address] Platelet mean volume (Bld) [Entitic vol] 9.4 fL Normal 9.0-12.7 [facility] Comment on above: Performed By: #### L [id number] ####Senior Telecommunications Technician: ARA WRIGHT ([id number])[facility] ([facility])[address] [place] [address] Platelets (Bld) [#/Vol] 141 10*3/uL Normal 140-440 [facility] Comment on above: Performed By: #### L [id number] ####Senior Telecommunications Technician: ARA WRIGHT ([phone])[facility])[address] [place] [address] RBC (Bld) [#/Vol] 3.71 10*6/uL Low 4.40-5.90 [facility] Comment on above: Performed By: #### L [id number] ####Senior Telecommunications Technician: ARA WRIGHT ([phone])[facility])[address] [place] [address] WBC (Bld) [#/Vol] 6.0 10*3/uL Normal 3.6-10.7 [facility] Comment on above: Performed By: #### L [id number] ####Senior Telecommunications Technician: ARA WRIGHT ([phone])[facility] ([facility])[address] [place] [address] Laboratory - Chemistry and C hemistry - challengeon 01-25-2024 Magnesium [Mass/Vol] 1.5 mg/dL Low 1.6 - 2 .3 mg/dL [facility] MAGNESIUMon 01-25-2024 Magnesium [Mass/Vol] 1.5 mg/dL Low 1.6-2.3 [facility] Comment on above: Performed By: #### L AB15, [id number] ####Senior Telecommunications Technician: ARA WRIGHT ([phone])[address] No Panel Informationon 01-24 Interpretation and review of laboratory results Abnormal [facility] Progress Noteon 01-25-2024 Progress Note Normal [facility] Progress Note Normal [facility] Progress Note Normal [facility] Progress Note PHYSICAL THERAPY [facility] Name/MRN: Woody Ni ([id number]) Date: 01/25/2024 Attempted PT. Pt states he can't do any therapy right now because he needs his meds first. Will re-attempt as schedule allows. Amarilys Leary, SKI INSTRUCTOR Normal [facility] Progress Note Normal [facility] BASIC METABOLIC PANELon Anion gap [Moles/Vol] 11 mmol/L Normal 3-13 [facility] Comment on above: Performed By: #### L AB103, [id number] ####Senior Telecommunications Technician: ARA WRIGHT ([phone])[facility])[address] [place] [address] Calcium [Mass/Vol] 9.6 mg/dL Normal 8.4-10.4 [facility] Comment on above: Performed By: #### L AB103, LAB15 ####Senior Telecommunications Technician: ARA WRIGHT ([phone])[facility] ([facility])[address] [place] [address] Chloride [Moles/Vol] 103 mmol/L Normal 98-107 [facility] Comment on above: Performed By: #### L AB103, LAB15 ####Senior Telecommunications Technician: ARA WRIGHT ([phone])[facility] ([facility])[address] [place] [address] [place] CO2 [Moles/Vol] 18 mmol/L Low 22-30 [facility] Comment on above: Performed By: #### L AB103, LAB15 ####Senior Telecommunications Technician: ARA WRIGHT ([phone])[facility] ([facility])[address] [place] [address] Creatinine [Mass/Vol] 0.86 mg/dL Normal 0.66-1.25 [facility] Comment on above: Performed By: #### L AB103, LAB15 ####Senior Telecommunications Technician: ARA WRIGHT ([phone])[facility])[address] [place] [address] GLOMERULAR FILTRATION RATE ML/MIN/1.73 SQ M.PREDICTED >90.0 Normal >60.0 [facility] Comment on above: Result Comment: Calc ulation based on the Chronic Kidney Disease Epidemiology Collaboration (CKD-EPI) equation refit without adjustment for race Performed By: #### L AB103, LAB15 ####Senior Telecommunications Technician: ARA WRIGHT ([phone])[facility] ([facility])[address] [place] [address] [place] Glucose [Mass/Vol] 97 mg/dL Normal 70-100 [facility] Comment on above: Performed By: #### L AB103, LAB15 ####Senior Telecommunications Technician: ARA WRIGHT ([phone])[facility])[address] [place] [address] [place] Potassium [Moles/Vol] 4.0 mmol/L Normal 3.5-5.1 [facility] Comment on above: Performed By: #### L AB103, LAB15 ####Senior Telecommunications Technician: ARA WRIGHT ([phone])[facility] ([facility])[address] [place] [address] Sodium [Moles/Vol] 132 mmol/L Low 135-145 [facility] Comment on above: Performed By: #### L AB103, LAB15 ####Senior Telecommunications Technician: ARA WRIGHT ([phone])[facility] ([facility])[address] [place] [address] Urea nitrogen [Mass/Vol] 12 mg/dL Normal 9-20 [facility] Comment on above: Performed By: #### L AB103, LAB15 ####Senior Telecommunications Technician: ARA WRIGHT ([phone])[facility] ([facility])[address] [place] [address] Basic metabolic 1998 panelon 01-24-2024 Anion gap [Moles/Vol] 11 mmol/L 3 - 13 mmol/L [facility] Calcium [Mass/Vol] 9.6 mg/dL 8.4 - 10. 4 mg/dL [facility] Chloride [Moles/Vol] 103 mmol/L 98 - 10 7 mmol/L [facility] CO2 [Moles/Vol] 18 mmol/L Low 22 - 30 mmol/L [facility] Creatinine [Mass/Vol] 0.86 mg/dL 0.66 - 1.25 mg/dL [facility] GFR/1.73 sq M.predicted MDRD (S/P/Bld) [Vol rate/Area] - PINF [facility] Comment on above: Calculation based on the Chronic Kidney Disease Epidemiology Collaboration (CKD-EPI) equation refit without adjustment for race Glucose [Mass/Vol] 97 mg/dL 70 - 100 mg/dL [facility] Interpretation and review of laboratory results Abnormal [facility] Potassium [Moles/Vol] 4.0 mmol/L 3.5 - 5.1 mmol/L [facility] Sodium [Moles/Vol] 132 mmol/L Low 135 - 145 mmol/L [facility] Urea nitrogen [Mass/Vol] 12 mg/dL 9 - 20 mg/dL [facility] CBC W Auto Differential pane l (Bld)on 01-24-2024 Basophils (Bld) [#/Vol] 0.0 10*3/uL 0.0 - 0.2 10*3/uL [facility] Basophils/100 WBC (Bld) 0.5 % 0.0 - 2.0 % [facility] Eosinophils (Bld) [#/Vol] 0.1 10*3/uL 0.0 - 0.5 10*3/uL [facility] Eosinophils/100 WBC (Bld) 2.3 % 0.0 - 6.0 % [facility] Erythrocyte distribution width (RBC) [Ratio] 13.9 % 11.5 - 15.0 % [facility] Hematocrit (Bld) [Volume fraction] 33.0 % Low 40.0 - 52.0 % [facility] Hemoglobin (Bld) [Mass/Vol] 11.6 g/dL Low 13.0 - 18.0 g/dL [email or web address] Immature granulocytes (Bld) [#/Vol] 0.0 10*3/uL NINF - 0.1 10*3/uL [email or web address] Immature granulocytes/100 WBC (Bld) 0.3 % 0.0 - 2.0 % [facility] Interpretation and review of laboratory results Abnormal [facility] Lymphocytes (Bld) [#/Vol] 2.4 10*3/uL 1.0 - 4.3 10*3/uL [facility] Lymphocytes/100 WBC (Bld) 38.5 % 15.0 - 45.0 % [facility] MCH (RBC) [Entitic mass] 32.0 pg 26.0 - 34.0 pg [facility] MCHC (RBC) [Mass/Vol] 35.2 % 30.5 - 36.0 % [facility] MCV (RBC) [Entitic vol] 91.2 fL 77.0 - 99.0 fL [email or web address] Monocytes (Bld) [#/Vol] 0.7 10*3/uL 0.0 - 0.9 10*3/uL [facility] Monocytes/100 WBC (Bld) 12.1 % 5.0 - 13.0 % [facility] Neutrophils (Bld) [#/Vol] 2.8 10*3/uL 1.8 - 7.5 10*3/uL [facility] Neutrophils/100 WBC (Bld) 46.3 % 38.0 - 82.0 % [facility] Nucleated RBC/100 WBC (Bld) [Ratio] 0.0 % [facility] Platelet mean volume (Bld) [Entitic vol] 9.3 fL 9.0 - 12.7 fL [facility] Platelets (Bld) [#/Vol] 128 10*3/uL Low 140 - 440 10*3/uL [facility] RBC (Bld) [#/Vol] 3.62 10*6/uL Low 4.40 - 5.9 0 10*6/uL [facility] WBC (Bld) [#/Vol] 6.1 10*3/uL 3.6 - 10.7 10*3/uL [facility] CBC WITH AUTO DIFFERENTIALon 01-24-2024 Basophils (Bld) [#/Vol] 0.0 10*3/uL Normal 0.0-0.2 [facility] Comment on above: Performed By: #### L [id number] ####Senior Telecommunications Technician: ARA WRIGHT ([phone])[facility])[address] [place] [address] Basophils/100 WBC (Bld) 0.5 % Normal 0.0-2.0 [facility] Comment on above: Performed By: #### L [id number] ####Senior Telecommunications Technician: ARA WRIGHT ([phone])[facility])[address] [place] [address] Eosinophils (Bld) [#/Vol] 0.1 10*3/uL Normal 0.0-0.5 [facility] Comment on above: Performed By: #### L [id number] ####Senior Telecommunications Technician: ARA WRIGHT ([phone])[facility])[address] [place] [address] Eosinophils/100 WBC (Bld) 2.3 % Normal 0.0-6.0 [facility] Comment on above: Performed By: #### L [id number] ####Senior Telecommunications Technician: ARA WRIGHT ([phone])[facility])[address] [place] [address] Erythrocyte distribution width (RBC) [Ratio] 13.9 % Normal 11.5-15.0 [facility] Comment on above: Performed By: #### L [id number] ####Senior Telecommunications Technician: ARA WRIGHT ([phone])[facility])[address] [place] [address] Hematocrit (Bld) [Volume fraction] 33.0 % Low 40.0-52.0 [facility] Comment on above: Performed By: #### L [id number] ####Senior Telecommunications Technician: ARA WRIGHT ([phone])[facility])[address] [place] [address] Hemoglobin (Bld) [Mass/Vol] 11.6 g/dL Low 13.0-18.0 [facility] Comment on above: Performed By: #### L [id number] ####Senior Telecommunications Technician: ARA WRIGHT ([phone])[facility])[address] [place] [address] IMMATURE GRANS % 0.3 % Normal 0.0-2.0 [facility] Comment on above: Performed By: #### L [id number] ####Senior Telecommunications Technician: ARA WRIGHT ([phone])[facility])[address] [place] [address] IMMATURE GRANS ABSOLUTE 0.0 10*3/uL Normal <0.1 [facility] Comment on above: Performed By: #### L [id number] ####Senior Telecommunications Technician: ARA WRIGHT ([phone])[facility])[address] [place] [address] Lymphocytes (Bld) [#/Vol] 2.4 10*3/uL Normal 1.0-4.3 [facility] Comment on above: Performed By: #### L [id number] ####Senior Telecommunications Technician: ARA WRIGHT ([phone])[facility])[address] [place] [address] Lymphocytes/100 WBC (Bld) 38.5 % Normal 15.0-45.0 [facility] Comment on above: Performed By: #### L [id number] ####Senior Telecommunications Technician: ARA WRIGHT ([phone])[facility])[address] [place] [address] MCH (RBC) [Entitic mass] 32.0 pg Normal 26.0-34.0 [facility] Comment on above: Performed By: #### L [id number] ####Senior Telecommunications Technician: ARA WRIGHT ([phone])[facility])[address] [place] [address] MCHC 35.2 % Normal 30.5-36.0 [facility] Comment on above: Performed By: #### L [id number] ####Senior Telecommunications Technician: ARA WRIGHT ([phone])[facility])[address] [place] [address] MCV (RBC) [Entitic vol] 91.2 fL Normal 77.0-99.0 [facility] Comment on above: Performed By: #### L [id number] ####Senior Telecommunications Technician: ARA WRIGHT ([phone])[facility])[address] [place] [address] Monocytes (Bld) [#/Vol] 0.7 10*3/uL Normal 0.0-0.9 [facility] Comment on above: Performed By: #### L [id number] ####Senior Telecommunications Technician: ARA WRIGHT ([phone])[facility])[address] [place] [address] Monocytes/100 WBC (Bld) 12.1 % Normal 5.0-13.0 [facility] Comment on above: Performed By: #### L [id number] ####Senior Telecommunications Technician: ARA WRIGHT ([phone])[facility])[address] [place] [address] NEUTROPHILS ABSOLUTE 2.8 10*3/uL Normal 1.8-7.5 [facility] Comment on above: Performed By: #### L [id number] ####Senior Telecommunications Technician: ARA [phone])[facility] ([facility])[address] [place] [address] Neutrophils/100 WBC (Bld) 46.3 % Normal 38.0-82.0 [facility] Comment on above: Performed By: #### L [id number] ####Senior Telecommunications Technician: ARA WRIGHT ([phone])[facility] ([facility])[address] [place] [address] NRBC 0.0 /100 WBCs Normal 0.0-2.0 [facility] Comment on above: Performed By: #### L [id number] ####Senior Telecommunications Technician: ARA WRIGHT ([phone])[facility] ([facility])[address] [place] [address] Platelet mean volume (Bld) [Entitic vol] 9.3 fL Normal 9.0-12.7 [facility] Comment on above: Performed By: #### L [id number] ####Senior Telecommunications Technician: ARA WRIGHT ([phone])[facility] ([facility])[address] [place] [address] Platelets (Bld) [#/Vol] 128 10*3/uL Low 140-440 [facility] Comment on above: Performed By: #### L [id number] ####Senior Telecommunications Technician: ARA WRIGHT ([phone])[facility] ([facility])[address] [place] [address] RBC (Bld) [#/Vol] 3.62 10*6/uL Low 4.40-5.90 [facility] Comment on above: Performed By: #### L [id number] ####Senior Telecommunications Technician: ARA WRIGHT ([phone])[facility] ([facility])[address] [place] [address] WBC (Bld) [#/Vol] 6.1 10*3/uL Normal 3.6-10.7 [facility] Comment on above: Performed By: #### L [id number] ####Senior Telecommunications Technician: ARA WRIGHT ([phone])[facility] ([facility])[address] [place] [address] Laboratory - Chemistry and C hemistry - challengeon 01-24-2024 Magnesium [Mass/Vol] 1.6 mg/dL 1.6 - 2 .3 mg/dL [facility] MAGNESIUMon 01-24-2024 Magnesium [Mass/Vol] 1.6 mg/dL Normal 1.6-2.3 [facility] Comment on above: Performed By: #### L AB103, LAB15 ####Senior Telecommunications Technician: ARA WRIGHT ([phone])[facility])[address] [place] [address] Magnesium [Mass/Vol]on 01-23 Interpretation and review of laboratory results Normal [facility] No Panel Informationon 01-23 [facility] Progress Noteon 01-24-2024 Progress Note Normal [facility] Progress Note Patient requesting A tivan stating so anxious and shaky Also requested tylenol and nausea med Normal [facility] BASIC METABOLIC PANELon Anion gap [Moles/Vol] 12 mmol/L Normal 3-13 [facility] Comment on above: Performed By: #### L AB15, [id number] ####Senior Telecommunications Technician: ARA WRIGHT ([phone])[facility])[address] [place] [address] Calcium [Mass/Vol] 9.8 mg/dL Normal 8.4-10.4 [facility] Comment on above: Performed By: #### L AB15, [id number] ####Senior Telecommunications Technician: ARA WRIGHT ([phone])[facility])[address] [place] [address] Chloride [Moles/Vol] 98 mmol/L Normal 98-107 [facility] Comment on above: Performed By: #### L AB15, [id number] ####Senior Telecommunications Technician: ARA WRIGHT ([phone])[facility])[address] [place] [address] CO2 [Moles/Vol] 19 mmol/L Low 22-30 [facility] Comment on above: Performed By: #### L AB15, [id number] ####Senior Telecommunications Technician: ARA WRIGHT ([phone])[facility] ([facility])[address] [place] [address] Creatinine [Mass/Vol] 0.90 mg/dL Normal 0.66-1.25 [facility] Comment on above: Performed By: #### L AB15, [id number] ####Senior Telecommunications Technician: ARA WRIGHT ([phone])[facility] ([facility])[address] [place] [address] GLOMERULAR FILTRATION RATE ML/MIN/1.73 SQ M.PREDICTED >90.0 Normal >60.0 [facility] Comment on above: Result Comment: Calc ulation based on the Chronic Kidney Disease Epidemiology Collaboration (CKD-EPI) equation refit without adjustment for race Performed By: #### L AB15, [id number] ####Senior Telecommunications Technician: ARA WRIGHT ([phone])[facility] ([facility])[address] [place] [address] [place] Glucose [Mass/Vol] 136 mg/dL High 70-100 [facility] Comment on above: Performed By: #### L AB15, [id number] ####Senior Telecommunications Technician: ARA WRIGHT ([phone])[facility] ([facility])[address] [place] [address] [place] Potassium [Moles/Vol] 3.9 mmol/L Normal 3.5-5.1 [facility] Comment on above: Performed By: #### L AB15, [id number] ####Senior Telecommunications Technician: ARA WRIGHT ([phone])[facility] ([facility])[address] [place] [address] [place] Sodium [Moles/Vol] 130 mmol/L Low 135-145 [facility] Comment on above: Performed By: #### L AB15, [id number] ####Senior Telecommunications Technician: ARA WRIGHT ([phone])[facility] ([facility])[address] [place] [address] [place] Urea nitrogen [Mass/Vol] 8 mg/dL Low 9-20 [facility] Comment on above: Performed By: #### L AB15, [id number] ####Senior Telecommunications Technician: ARA WRIGHT ([phone])[facility] ([facility])[address] [place] [address] Basic metabolic 1998 panelon 01-23-2024 Anion gap [Moles/Vol] 12 mmol/L 3 - 13 mmol/L [email or web address] Calcium [Mass/Vol] 9.8 mg/dL 8.4 - 10. 4 mg/dL [email or web address] Chloride [Moles/Vol] 98 mmol/L 98 - 10 7 mmol/L [email or web address] CO2 [Moles/Vol] 19 mmol/L Low 22 - 30 mmol/L [email or web address] Creatinine [Mass/Vol] 0.90 mg/dL 0.66 - 1.25 mg/dL [email or web address] GFR/1.73 sq M.predicted MDRD (S/P/Bld) [Vol rate/Area] - PINF [facility] Comment on above: Calculation based on the Chronic Kidney Disease Epidemiology Collaboration (CKD-EPI) equation refit without adjustment for race Glucose [Mass/Vol] 136 mg/dL High 70 - 100 mg/dL [email or web address] Interpretation and review of laboratory results Abnormal [email or web address] Potassium [Moles/Vol] 3.9 mmol/L 3.5 - 5.1 mmol/L [email or web address] Sodium [Moles/Vol] 130 mmol/L Low 135 - 145 mmol/L [email or web address] Urea nitrogen [Mass/Vol] 8 mg/dL Low 9 - 20 mg/dL [facility] [email or web address] CBC W Auto Differential pane l (Bld)Ordered By: Rita Swan on 01-23-2024 Basophils (Bld) [#/Vol] 0.0 10*3/uL 0.0 - 0.2 10*3/uL [email or web address] Basophils/100 WBC (Bld) 0.4 % 0.0 - 2.0 % [facility] [email or web address] Eosinophils (Bld) [#/Vol] 0.2 10*3/uL 0.0 - 0.5 10*3/uL [email or web address] Eosinophils/100 WBC (Bld) 2.3 % 0.0 - 6.0 % [facility] [email or web address] Erythrocyte distribution width (RBC) [Ratio] 14.2 % 11.5 - 15.0 % [facility] [email or web address] Hematocrit (Bld) [Volume fraction] 36.0 % Low 40.0 - 52.0 % [email or web address] Hemoglobin (Bld) [Mass/Vol] 12.4 g/dL Low 13.0 - 18.0 g/dL [facility] Immature granulocytes (Bld) [#/Vol] 0.0 10*3/uL NINF - 0.1 10*3/uL [facility] Immature granulocytes/100 WBC (Bld) 0.4 % 0.0 - 2.0 % [facility] Interpretation and review of laboratory results Abnormal [facility] IPF 2 [facility] Lymphocytes (Bld) [#/Vol] 1.8 10*3/uL 1.0 - 4.3 10*3/uL [facility] Lymphocytes/100 WBC (Bld) 25.3 % 15.0 - 45.0 % [facility] MCH (RBC) [Entitic mass] 31.8 pg 26.0 - 34.0 pg [facility] MCHC (RBC) [Mass/Vol] 34.4 % 30.5 - 36.0 % [facility] MCV (RBC) [Entitic vol] 92.3 fL 77.0 - 99.0 fL [facility] Monocytes (Bld) [#/Vol] 1.0 10*3/uL High 0.0 - 0.9 10*3/uL [facility] Monocytes/100 WBC (Bld) 13.6 % High 5.0 - 13.0 % [facility] Neutrophils (Bld) [#/Vol] 4.1 10*3/uL 1.8 - 7.5 10*3/uL [facility] Neutrophils/100 WBC (Bld) 58.0 % 38.0 - 82.0 % [facility] Nucleated RBC/100 WBC (Bld) [Ratio] 0.0 % [facility] Platelet mean volume (Bld) [Entitic vol] 9.4 fL 9.0 - 12.7 fL [facility] Platelets (Bld) [#/Vol] 139 10*3/uL Low 140 - 440 10*3/uL [facility] RBC (Bld) [#/Vol] 3.90 10*6/uL Low 4.40 - 5.9 0 10*6/uL [facility] WBC (Bld) [#/Vol] 7.1 10*3/uL 3.6 - 10.7 10*3/uL [facility] CBC WITH AUTO DIFFERENTIALon 01-23-2024 Basophils (Bld) [#/Vol] 0.0 10*3/uL Normal 0.0-0.2 [facility] Comment on above: Performed By: #### L [id number] ####Senior Telecommunications Technician: ARA WRIGHT ([phone])[facility])[address] [place] [address] Basophils/100 WBC (Bld) 0.4 % Normal 0.0-2.0 [facility] Comment on above: Performed By: #### L [id number] ####Senior Telecommunications Technician: ARA WRIGHT ([phone])[facility])[address] [place] [address] Eosinophils (Bld) [#/Vol] 0.2 10*3/uL Normal 0.0-0.5 [facility] Comment on above: Performed By: #### L [id number] ####Senior Telecommunications Technician: ARA WRIGHT ([phone])[facility])[address] [place] [address] Eosinophils/100 WBC (Bld) 2.3 % Normal 0.0-6.0 [facility] Comment on above: Performed By: #### L [id number] ####Senior Telecommunications Technician: ARA WRIGHT ([phone])[facility])[address] [place] [address] Erythrocyte distribution width (RBC) [Ratio] 14.2 % Normal 11.5-15.0 [facility] Comment on above: Performed By: #### L [id number] ####Senior Telecommunications Technician: ARA WRIGHT ([phone])[facility])[address] [place] [address] Hematocrit (Bld) [Volume fraction] 36.0 % Low 40.0-52.0 [facility] Comment on above: Performed By: #### L [id number] ####Senior Telecommunications Technician: ARA WRIGHT ([phone])[facility])[address] [place] [address] Hemoglobin (Bld) [Mass/Vol] 12.4 g/dL Low 13.0-18.0 [facility] Comment on above: Performed By: #### L [id number] ####Senior Telecommunications Technician: ARA WRIGHT ([phone])[facility])[address] [place] [address] IMMATURE GRANS % 0.4 % Normal 0.0-2.0 [facility] Comment on above: Performed By: #### L [id number] ####Senior Telecommunications Technician: RAA WRIGHT ([phone])[facility])[address] [place] [address] IMMATURE GRANS ABSOLUTE 0.0 10*3/uL Normal <0.1 [facility] Comment on above: Performed By: #### L [id number] ####Senior Telecommunications Technician: ARA WRIGHT ([phone])[address] IPF 2 Normal [facility] Comment on above: Performed By: #### L [id number] ####Senior Telecommunications Technician: ARA WRIGHT ([phone])[facility])[address] [place] [address] Lymphocytes (Bld) [#/Vol] 1.8 10*3/uL Normal 1.0-4.3 [facility] Comment on above: Performed By: #### L [id number] ####Senior Telecommunications Technician: ARA WRIGHT ([phone])[address] Lymphocytes/100 WBC (Bld) 25.3 % Normal 15.0-45.0 [facility] Comment on above: Performed By: #### L [id number] ####Senior Telecommunications Technician: ARA WRIGHT ([phone])[facility])[address] [place] [address] MCH (RBC) [Entitic mass] 31.8 pg Normal 26.0-34.0 [facility] Comment on above: Performed By: #### L [id number] ####Senior Telecommunications Technician: ARA WRIGHT ([phone])[address] MCHC 34.4 % Normal 30.5-36.0 [facility] Comment on above: Performed By: #### L [id number] ####Senior Telecommunications Technician: ARA WRIGHT ([phone])[facility])[address] [place] [address] MCV (RBC) [Entitic vol] 92.3 fL Normal 77.0-99.0 [facility] Comment on above: Performed By: #### L [id number] ####Senior Telecommunications Technician: ARA WRIGHT ([phone])[facility] ([facility])[address] [place] [address] Monocytes (Bld) [#/Vol] 1.0 10*3/uL High 0.0-0.9 [facility] Comment on above: Performed By: #### L [id number] ####Senior Telecommunications Technician: ARA WRIGHT ([phone])[facility])[address] [place] [address] Monocytes/100 WBC (Bld) 13.6 % High 5.0-13.0 [facility] Comment on above: Performed By: #### L [id number] ####Senior Telecommunications Technician: ARA WRIGHT ([phone])[facility])[address] [place] [address] NEUTROPHILS ABSOLUTE 4.1 10*3/uL Normal 1.8-7.5 [facility] Comment on above: Performed By: #### L [id number] ####Senior Telecommunications Technician: ARA WRIGHT ([phone])[facility])[address] [place] [address] Neutrophils/100 WBC (Bld) 58.0 % Normal 38.0-82.0 [facility] Comment on above: Performed By: #### L [id number] ####Senior Telecommunications Technician: ARA WRIGHT ([phone])[facility])[address] [place] [address] NRBC 0.0 /100 WBCs Normal 0.0-2.0 [facility] Comment on above: Performed By: #### L [id number] ####Senior Telecommunications Technician: ARA WRIGHT ([phone])[facility] ([facility])[address] [place] [address] Platelet mean volume (Bld) [Entitic vol] 9.4 fL Normal 9.0-12.7 [facility] Comment on above: Performed By: #### L [id number] ####Senior Telecommunications Technician: ARA WRIGHT ([phone])[facility] ([facility])[address] [place] [address] Platelets (Bld) [#/Vol] 139 10*3/uL Low 140-440 [facility] Comment on above: Performed By: #### L [id number] ####Senior Telecommunications Technician: ARA WRIGHT ([phone])[facility] ([facility])[address] [place] [address] RBC (Bld) [#/Vol] 3.90 10*6/uL Low 4.40-5.90 [facility] Comment on above: Performed By: #### L [id number] ####Senior Telecommunications Technician: ARA WRIGHT ([phone])[facility] ([facility])[address] [place] [address] WBC (Bld) [#/Vol] 7.1 10*3/uL Normal 3.6-10.7 [facility] Comment on above: Performed By: #### L [id number] ####Senior Telecommunications Technician: ARA WRIGHT ([phone])[facility] ([facility])[address] [place] [address] Laboratory - Chemistry and C hemistry - challengeon 01-23-2024 Magnesium [Mass/Vol] 1.7 mg/dL 1.6 - 2 .3 mg/dL [facility] MAGNESIUMon 01-23-2024 Magnesium [Mass/Vol] 1.7 mg/dL Normal 1.6-2.3 [facility] Comment on above: Performed By: #### L [id number], [id number] ####Senior Telecommunications Technician: ARA WRIGHT ([phone])[facility] ([facility])[address] [place] [address] Magnesium [Mass/Vol]on 01-22 Interpretation and review of laboratory results Normal [facility] No Panel Informationon 01-22 [facility] Progress Noteon 01-23-2024 Progress Note Normal [facility] C. DIFFICILE BY PCR WITH REF BEATRICE TO EIAon 01-22-2024 C. DIFFICILE BY PCR WITH REFLEX TO EIA C. DIFFICILE TOXIN PCR Reference Not Detected Not Detected ORDER COMMENTS: C. difficile infection is unlikely to be present. Methodology: Real-time PCR Normal [facility] Comment on above: Performed By: #### L [id number] ####Senior Telecommunications Technician: ARA WRIGHT ([phone])[facility] ([facility])[address] [place] [address] C. difficile toxin genes SHANE +probe Ql (Stl)on 01-22-2024 C. difficile toxin B tcdB gene SHANE+probe Ql (Stl) Not detected Not Detected [facility] Interpretation and review of laboratory results Normal [facility] C. difficile infecti on is unlikely to be present. Methodology: Real-time PCR [facility] CARECOORDon 01-22-2024 CARECOORD Normal [facility] CARECOORD Normal [facility] CBC W Auto Differential pane l (Bld)on 01-22-2024 Basophils (Bld) [#/Vol] 0.0 10*3/uL 0.0 - 0.2 10*3/uL [facility] Basophils/100 WBC (Bld) 0.4 % 0.0 - 2.0 % [facility] Eosinophils (Bld) [#/Vol] 0.1 10*3/uL 0.0 - 0.5 10*3/uL [facility] Eosinophils/100 WBC (Bld) 1.5 % 0.0 - 6.0 % [facility] Erythrocyte distribution width (RBC) [Ratio] 14.0 % 11.5 - 15.0 % [facility] Hematocrit (Bld) [Volume fraction] 30.1 % Low 40.0 - 52.0 % [facility] Hemoglobin (Bld) [Mass/Vol] 10.6 g/dL Low 13.0 - 18.0 g/dL [facility] Immature granulocytes (Bld) [#/Vol] 0.0 10*3/uL NINF - 0.1 10*3/uL [email or web address] Immature granulocytes/100 WBC (Bld) 0.2 % 0.0 - 2.0 % [email or web address] Interpretation and review of laboratory results Abnormal [facility] IPF 3 [email or web address] Lymphocytes (Bld) [#/Vol] 1.7 10*3/uL 1.0 - 4.3 10*3/uL [facility] Lymphocytes/100 WBC (Bld) 35.7 % 15.0 - 45.0 % [email or web address] MCH (RBC) [Entitic mass] 32.5 pg 26.0 - 34.0 pg [facility] MCHC (RBC) [Mass/Vol] 35.2 % 30.5 - 36.0 % [email or web address] MCV (RBC) [Entitic vol] 92.3 fL 77.0 - 99.0 fL [email or web address] Monocytes (Bld) [#/Vol] 0.7 10*3/uL 0.0 - 0.9 10*3/uL [email or web address] Monocytes/100 WBC (Bld) 13.9 % High 5.0 - 13.0 % [email or web address] Neutrophils (Bld) [#/Vol] 2.3 10*3/uL 1.8 - 7.5 10*3/uL [email or web address] Neutrophils/100 WBC (Bld) 48.3 % 38.0 - 82.0 % [email or web address] Nucleated RBC/100 WBC (Bld) [Ratio] 0.0 % [email or web address] Platelet mean volume (Bld) [Entitic vol] 10.2 fL 9.0 - 12.7 fL [email or web address] Platelets (Bld) [#/Vol] 83 10*3/uL Low 140 - 440 10*3/uL [facility] RBC (Bld) [#/Vol] 3.26 10*6/uL Low 4.40 - 5.9 0 10*6/uL [email or web address] WBC (Bld) [#/Vol] 4.7 10*3/uL 3.6 - 10.7 10*3/uL [facility] CBC WITH AUTO DIFFERENTIALon 01-22-2024 Basophils (Bld) [#/Vol] 0.0 10*3/uL Normal 0.0-0.2 [facility] Comment on above: Performed By: #### L [id number] ####Senior Telecommunications Technician: ARA WRIGHT ([phone])[facility])[address] [place] [address] Basophils/100 WBC (Bld) 0.4 % Normal 0.0-2.0 [facility] Comment on above: Performed By: #### L [id number] ####Senior Telecommunications Technician: ARA WRIGHT ([phone])[facility])[address] [place] [address] Eosinophils (Bld) [#/Vol] 0.1 10*3/uL Normal 0.0-0.5 [facility] Comment on above: Performed By: #### L [id number] ####Senior Telecommunications Technician: ARA WRIGHT ([phone])[address] Eosinophils/100 WBC (Bld) 1.5 % Normal 0.0-6.0 [facility] Comment on above: Performed By: #### L [id number] ####Senior Telecommunications Technician: ARA WRIGHT ([phone])[facility])[address] [place] [address] Erythrocyte distribution width (RBC) [Ratio] 14.0 % Normal 11.5-15.0 [facility] Comment on above: Performed By: #### L [id number] ####Senior Telecommunications Technician: ARA WRIGHT ([phone])[address] Hematocrit (Bld) [Volume fraction] 30.1 % Low 40.0-52.0 [facility] Comment on above: Performed By: #### L [id number] ####Senior Telecommunications Technician: ARA WRIGHT ([phone])[facility])[address] [place] [address] Hemoglobin (Bld) [Mass/Vol] 10.6 g/dL Low 13.0-18.0 [facility] Comment on above: Performed By: #### L [id number] ####Senior Telecommunications Technician: ARA WRIGHT ([phone])[facility])[address] [place] [address] IMMATURE GRANS % 0.2 % Normal 0.0-2.0 [facility] Comment on above: Performed By: #### L [id number] ####Senior Telecommunications Technician: ARA WRIGHT ([phone])[facility])[address] [place] [address] IMMATURE GRANS ABSOLUTE 0.0 10*3/uL Normal <0.1 [facility] Comment on above: Performed By: #### L [id number] ####Senior Telecommunications Technician: ARA WRIGHT ([phone])[facility])[address] [place] [address] [place] IPF 3 Normal [facility] Comment on above: Performed By: #### L [id number] ####Senior Telecommunications Technician: ARA WRIGHT ([phone])[facility])[address] [place] [address] Lymphocytes (Bld) [#/Vol] 1.7 10*3/uL Normal 1.0-4.3 [facility] Comment on above: Performed By: #### L [id number] ####Senior Telecommunications Technician: ARA WRIGHT ([id number])[facility])[address] [place] [address] Lymphocytes/100 WBC (Bld) 35.7 % Normal 15.0-45.0 [facility] Comment on above: Performed By: #### L [id number] ####Senior Telecommunications Technician: ARA WRIGHT ([phone])[facility])[address] [place] [address] MCH (RBC) [Entitic mass] 32.5 pg Normal 26.0-34.0 [facility] Comment on above: Performed By: #### L [id number] ####Senior Telecommunications Technician: ARA WRIGHT ([phone])[facility])[address] [place] [address] MCHC 35.2 % Normal 30.5-36.0 [facility] Comment on above: Performed By: #### L [id number] ####Senior Telecommunications Technician: ARA WRIGHT ([phone])[facility] ([facility])[address] [place] [address] MCV (RBC) [Entitic vol] 92.3 fL Normal 77.0-99.0 [facility] Comment on above: Performed By: #### L [id number] ####Senior Telecommunications Technician: ARA WRIGHT ([phone])[facility] ([facility])[address] [place] [address] Monocytes (Bld) [#/Vol] 0.7 10*3/uL Normal 0.0-0.9 [facility] Comment on above: Performed By: #### L [id number] ####Senior Telecommunications Technician: ARA WRIGHT ([phone])[facility] ([facility])[address] [place] [address] Monocytes/100 WBC (Bld) 13.9 % High 5.0-13.0 [facility] Comment on above: Performed By: #### L [id number] ####Senior Telecommunications Technician: ARA WRIGHT ([phone])[facility] ([facility])[address] [place] [address] NEUTROPHILS ABSOLUTE 2.3 10*3/uL Normal 1.8-7.5 [facility] Comment on above: Performed By: #### L [id number] ####Senior Telecommunications Technician: ARA WRIGHT ([phone])[facility] ([facility])[address] [place] [address] Neutrophils/100 WBC (Bld) 48.3 % Normal 38.0-82.0 [facility] Comment on above: Performed By: #### L [id number] ####Senior Telecommunications Technician: ARA WRIGHT ([phone])[facility])[address] [place] [address] NRBC 0.0 /100 WBCs Normal 0.0-2.0 [facility] Comment on above: Performed By: #### L [id number] ####Senior Telecommunications Technician: ARA WRIGHT ([phone])[facility] ([facility])[address] [place] [address] Platelet mean volume (Bld) [Entitic vol] 10.2 fL Normal 9.0-12.7 [facility] Comment on above: Performed By: #### L [id number] ####Senior Telecommunications Technician: ARA WRIGHT ([phone])[facility])[address] [place] [address] Platelets (Bld) [#/Vol] 83 10*3/uL Low 140-440 [facility] Comment on above: Performed By: #### L [id number] ####Senior Telecommunications Technician: ARA WRIGHT ([phone])[facility])[address] [place] [address] RBC (Bld) [#/Vol] 3.26 10*6/uL Low 4.40-5.90 [facility] Comment on above: Performed By: #### L [id number] ####Senior Telecommunications Technician: ARA WRIGHT ([phone])[facility] ([facility])[address] [place] [address] WBC (Bld) [#/Vol] 4.7 10*3/uL Normal 3.6-10.7 [facility] Comment on above: Performed By: #### L [id number] ####Senior Telecommunications Technician: ARA WRIGHT ([phone])[facility])[address] [place] [address] COMPREHENSIVE METABOLIC PANE Peter 01-22-2024 Albumin [Mass/Vol] 3.9 g/dL Normal 3.5-5.0 [facility] Comment on above: Performed By: #### L AB103, LAB17 ####Senior Telecommunications Technician: ARA WRIGHT ([phone])[facility])[address] [place] [address] ALP [Catalytic activity/Vol] 43 U/L Normal 38-126 [facility] Comment on above: Performed By: #### L AB103, LAB17 ####Senior Telecommunications Technician: ARA WRIGHT ([phone])[facility])[address] [place] [address] [place] ALT [Catalytic activity/Vol] 20 U/L Normal 0-49 [facility] Comment on above: Performed By: #### L ADRIANNA, LAB17 ####Senior Telecommunications Technician: ARA WRIGHT ([phone])[facility] ([facility])[address] [place] [address] Anion gap [Moles/Vol] 9 mmol/L Normal 3-13 [facility] Comment on above: Performed By: #### L ADRIANNA, LAB17 ####Senior Telecommunications Technician: ARA WRIGHT ([phone])[facility] ([facility])[address] [place] [address] AST [Catalytic activity/Vol] 29 U/L Normal 15-46 [facility] Comment on above: Performed By: #### Popeye RODAS, LAB17 ####Senior Telecommunications Technician: ARA WRIGHT ([phone])[facility] ([facility])[address] [place] [address] Bilirubin [Mass/Vol] 0.4 mg/dL Normal 0.2-1.3 [facility] Comment on above: Performed By: #### Popeye RODAS, LAB17 ####Senior Telecommunications Technician: ARA WRIGHT ([phone])[facility])[address] [place] [address] Calcium [Mass/Vol] 9.2 mg/dL Normal 8.4-10.4 [facility] Comment on above: Performed By: #### Popeye RODAS, LAB17 ####Senior Telecommunications Technician: ARA WRIGHT ([phone])[facility])[address] [place] [address] [place] Chloride [Moles/Vol] 102 mmol/L Normal 98-107 [facility] Comment on above: Performed By: #### L AB103, LAB17 ####Senior Telecommunications Technician: ARA WRIGHT ([phone])[facility])[address] [place] [address] [place] CO2 [Moles/Vol] 20 mmol/L Low 22-30 [facility] Comment on above: Performed By: #### L AB103, LAB17 ####Senior Telecommunications Technician: ARA WRIGHT ([phone])[facility])[address] [place] [address] Creatinine [Mass/Vol] 0.71 mg/dL Normal 0.66-1.25 [facility] Comment on above: Performed By: #### L AB103, LAB17 ####Senior Telecommunications Technician: ARA WRIGHT ([phone])[facility])[address] [place] [address] GLOMERULAR FILTRATION RATE ML/MIN/1.73 SQ M.PREDICTED >90.0 Normal >60.0 [facility] Comment on above: Result Comment: Calc ulation based on the Chronic Kidney Disease Epidemiology Collaboration (CKD-EPI) equation refit without adjustment for race Performed By: #### L ADRIANNA, LAB17 ####Senior Telecommunications Technician: ARA WRIGHT ([phone])[facility] ([facility])[address] [place] [address] Glucose [Mass/Vol] 111 mg/dL High 70-100 [facility] Comment on above: Performed By: #### L 103, LAB17 ####Senior Telecommunications Technician: ARA WRIGHT ([phone])[facility])[address] [place] [address] Potassium [Moles/Vol] 3.4 mmol/L Low 3.5-5.1 [facility] Comment on above: Performed By: #### L ABJenn, LAB17 ####Senior Telecommunications Technician: ARA WRIGHT ([phone])[facility])[address] [place] [address] Protein [Mass/Vol] 6.8 g/dL Normal 6.3-8.2 [facility] Comment on above: Performed By: #### L AB103, LAB17 ####Senior Telecommunications Technician: ARA WRIGHT ([phone])[facility])[address] [place] [address] Sodium [Moles/Vol] 132 mmol/L Low 135-145 [facility] Comment on above: Performed By: #### L AB103, LAB17 ####Senior Telecommunications Technician: ARA WRIGHT ([phone])[facility] ([facility])[address] [place] [address] Urea nitrogen [Mass/Vol] 13 mg/dL Normal 9-20 [facility] Comment on above: Performed By: #### L AB103, LAB17 ####Senior Telecommunications Technician: ARA WRIGHT ([phone])[facility] ([facility])[address] [place] [address] Comprehensive metabolic 1998 panelon 01-22-2024 Albumin [Mass/Vol] 3.9 g/dL 3.5 - 5.0 g/dL [facility] ALP [Catalytic activity/Vol] 43 U/L 38 - 126 U/L [facility] ALT [Catalytic activity/Vol] 20 U/L 0 - 49 U/L [facility] Anion gap [Moles/Vol] 9 mmol/L 3 - 13 mmol/L [facility] AST [Catalytic activity/Vol] 29 U/L 15 - 46 U/L [facility] Bilirubin [Mass/Vol] 0.4 mg/dL 0.2 - 1 .3 mg/dL [facility] Calcium [Mass/Vol] 9.2 mg/dL 8.4 - 10. 4 mg/dL [facility] Chloride [Moles/Vol] 102 mmol/L 98 - 10 7 mmol/L [facility] CO2 [Moles/Vol] 20 mmol/L Low 22 - 30 mmol/L [facility] Creatinine [Mass/Vol] 0.71 mg/dL 0.66 - 1.25 mg/dL [facility] GFR/1.73 sq M.predicted MDRD (S/P/Bld) [Vol rate/Area] - PINF [facility] Comment on above: Calculation based on the Chronic Kidney Disease Epidemiology Collaboration (CKD-EPI) equation refit without adjustment for race Glucose [Mass/Vol] 111 mg/dL High 70 - 100 mg/dL [facility] Interpretation and review of laboratory results Abnormal [facility] Potassium [Moles/Vol] 3.4 mmol/L Low 3.5 - 5.1 mmol/L [facility] Protein [Mass/Vol] 6.8 g/dL 6.3 - 8.2 g/dL [facility] Sodium [Moles/Vol] 132 mmol/L Low 135 - 145 mmol/L [facility] Urea nitrogen [Mass/Vol] 13 mg/dL 9 - 20 mg/dL [facility] Consulton 01-22-2024 Consult Normal [facility] IDNon 01-22-2024 IDN Normal [facility] Laboratory - Chemistry and C hemistry - challengeon 01-22-2024 Magnesium [Mass/Vol] 1.5 mg/dL Low 1.6 - 2 .3 mg/dL [facility] MAGNESIUMon 01-22-2024 Magnesium [Mass/Vol] 1.5 mg/dL Low 1.6-2.3 [facility] Comment on above: Performed By: #### L AB103, LAB17 ####Senior Telecommunications Technician: ARA WRIGHT ([phone])[address] Magnesium [Mass/Vol]on 01-21 Interpretation and review of laboratory results Abnormal [facility] Progress Noteon 01-22-2024 Progress Note Normal [facility] Progress Note Normal [facility] Progress Note Normal [facility] CARECOORDon 01-21-2024 CARECOORD Normal [facility] CBC W Auto Differential pane l (Bld)on 01-21-2024 Basophils (Bld) [#/Vol] 0.0 10*3/uL 0.0 - 0.2 10*3/uL [facility] Basophils/100 WBC (Bld) 0.4 % 0.0 - 2.0 % [facility] Eosinophils (Bld) [#/Vol] 0.1 10*3/uL 0.0 - 0.5 10*3/uL [facility] Eosinophils/100 WBC (Bld) 1.3 % 0.0 - 6.0 % [facility] Erythrocyte distribution width (RBC) [Ratio] 13.9 % 11.5 - 15.0 % [facility] Hematocrit (Bld) [Volume fraction] 33.8 % Low 40.0 - 52.0 % [facility] Hemoglobin (Bld) [Mass/Vol] 11.8 g/dL Low 13.0 - 18.0 g/dL [facility] Immature granulocytes (Bld) [#/Vol] 0.0 10*3/uL NINF - 0.1 10*3/uL [facility] Immature granulocytes/100 WBC (Bld) 0.4 % 0.0 - 2.0 % [facility] Interpretation and review of laboratory results Abnormal [facility] IPF 3 [facility] Lymphocytes (Bld) [#/Vol] 1.5 10*3/uL 1.0 - 4.3 10*3/uL [facility] Lymphocytes/100 WBC (Bld) 33.6 % 15.0 - 45.0 % [facility] MCH (RBC) [Entitic mass] 31.8 pg 26.0 - 34.0 pg [facility] MCHC (RBC) [Mass/Vol] 34.9 % 30.5 - 36.0 % [facility] MCV (RBC) [Entitic vol] 91.1 fL 77.0 - 99.0 fL [facility] Monocytes (Bld) [#/Vol] 0.5 10*3/uL 0.0 - 0.9 10*3/uL [facility] Monocytes/100 WBC (Bld) 11.4 % 5.0 - 13.0 % [facility] Neutrophils (Bld) [#/Vol] 2.4 10*3/uL 1.8 - 7.5 10*3/uL [facility] Neutrophils/100 WBC (Bld) 52.9 % 38.0 - 82.0 % [facility] Nucleated RBC/100 WBC (Bld) [Ratio] 0.0 % [facility] Platelet mean volume (Bld) [Entitic vol] 10.0 fL 9.0 - 12.7 fL [facility] Platelets (Bld) [#/Vol] 82 10*3/uL Low 140 - 440 10*3/uL [facility] RBC (Bld) [#/Vol] 3.71 10*6/uL Low 4.40 - 5.9 0 10*6/uL [facility] WBC (Bld) [#/Vol] 4.6 10*3/uL 3.6 - 10.7 10*3/uL [facility] CBC WITH AUTO DIFFERENTIALon 01-21-2024 Basophils (Bld) [#/Vol] 0.0 10*3/uL Normal 0.0-0.2 [facility] Comment on above: Performed By: #### L [id number] ####Senior Telecommunications Technician: ARA WRIGHT ([phone])[facility])[address] [place] [address] Basophils/100 WBC (Bld) 0.4 % Normal 0.0-2.0 [facility] Comment on above: Performed By: #### L [id number] ####Senior Telecommunications Technician: ARA WRIGHT ([phone])[facility])[address] [place] [address] Eosinophils (Bld) [#/Vol] 0.1 10*3/uL Normal 0.0-0.5 [facility] Comment on above: Performed By: #### L [id number] ####Senior Telecommunications Technician: RAA WRIGHT ([phone])[address] Eosinophils/100 WBC (Bld) 1.3 % Normal 0.0-6.0 [facility] Comment on above: Performed By: #### L [id number] ####Senior Telecommunications Technician: ARA WRIGHT ([phone])[facility])[address] [place] [address] Erythrocyte distribution width (RBC) [Ratio] 13.9 % Normal 11.5-15.0 [facility] Comment on above: Performed By: #### L [id number] ####Senior Telecommunications Technician: ARA WRIGHT ([phone])[address] Hematocrit (Bld) [Volume fraction] 33.8 % Low 40.0-52.0 [facility] Comment on above: Performed By: #### L [id number] ####Senior Telecommunications Technician: ARA WRIGHT ([phone])[address] Hemoglobin (Bld) [Mass/Vol] 11.8 g/dL Low 13.0-18.0 [facility] Comment on above: Performed By: #### L [id number] ####Senior Telecommunications Technician: ARA WRIGHT ([phone])[facility])[address] [place] [address] IMMATURE GRANS % 0.4 % Normal 0.0-2.0 [facility] Comment on above: Performed By: #### L [id number] ####Senior Telecommunications Technician: ARA WRIGHT ([phone])[facility])[address] [place] [address] IMMATURE GRANS ABSOLUTE 0.0 10*3/uL Normal <0.1 [facility] Comment on above: Performed By: #### L [id number] ####Senior Telecommunications Technician: ARA WRIGHT ([phone])[facility])[address] [place] [address] [place] IPF 3 Normal [facility] Comment on above: Performed By: #### L [id number] ####Senior Telecommunications Technician: ARA WRIGHT ([phone])[facility])[address] [place] [address] Lymphocytes (Bld) [#/Vol] 1.5 10*3/uL Normal 1.0-4.3 [facility] Comment on above: Performed By: #### L [id number] ####Senior Telecommunications Technician: ARA WRIGHT ([id number])[address] Lymphocytes/100 WBC (Bld) 33.6 % Normal 15.0-45.0 [facility] Comment on above: Performed By: #### L [id number] ####Senior Telecommunications Technician: ARA WRIGHT ([phone])[facility])[address] [place] [address] MCH (RBC) [Entitic mass] 31.8 pg Normal 26.0-34.0 [facility] Comment on above: Performed By: #### L [id number] ####Senior Telecommunications Technician: ARA WRIGHT ([phone])[address] MCHC 34.9 % Normal 30.5-36.0 [facility] Comment on above: Performed By: #### L [id number] ####Senior Telecommunications Technician: ARA WRIGHT ([phone])[facility] ([facility])[address] [place] [address] MCV (RBC) [Entitic vol] 91.1 fL Normal 77.0-99.0 [facility] Comment on above: Performed By: #### L [id number] ####Senior Telecommunications Technician: ARA WRIGHT ([phone])[facility] ([facility])[address] [place] [address] Monocytes (Bld) [#/Vol] 0.5 10*3/uL Normal 0.0-0.9 [facility] Comment on above: Performed By: #### L [id number] ####Senior Telecommunications Technician: ARA WRIGHT ([phone])[facility])[address] [place] [address] Monocytes/100 WBC (Bld) 11.4 % Normal 5.0-13.0 [facility] Comment on above: Performed By: #### L [id number] ####Senior Telecommunications Technician: ARA WRIGHT ([phone])[facility] ([facility])[address] [place] [address] NEUTROPHILS ABSOLUTE 2.4 10*3/uL Normal 1.8-7.5 [facility] Comment on above: Performed By: #### L [id number] ####Senior Telecommunications Technician: ARA WRIGHT ([phone])[facility])[address] [place] [address] Neutrophils/100 WBC (Bld) 52.9 % Normal 38.0-82.0 [facility] Comment on above: Performed By: #### L [id number] ####Senior Telecommunications Technician: ARA WRIGHT ([phone])[facility] ([facility])[address] [place] [address] [place] NRBC 0.0 /100 WBCs Normal 0.0-2.0 [facility] Comment on above: Performed By: #### L [id number] ####Senior Telecommunications Technician: ARA WRIGHT ([phone])[facility])[address] [place] [address] Platelet mean volume (Bld) [Entitic vol] 10.0 fL Normal 9.0-12.7 [facility] Comment on above: Performed By: #### L [id number] ####Senior Telecommunications Technician: ARA WRIGHT ([phone])[facility] ([facility])[address] [place] [address] Platelets (Bld) [#/Vol] 82 10*3/uL Low 140-440 [facility] Comment on above: Performed By: #### L [id number] ####Senior Telecommunications Technician: ARA WRIGHT ([phone])[facility] ([facility])[address] [place] [address] RBC (Bld) [#/Vol] 3.71 10*6/uL Low 4.40-5.90 [facility] Comment on above: Performed By: #### L [id number] ####Senior Telecommunications Technician: ARA WRIGHT ([phone])[facility] ([facility])[address] [place] [address] WBC (Bld) [#/Vol] 4.6 10*3/uL Normal 3.6-10.7 [facility] Comment on above: Performed By: #### L [id number] ####Senior Telecommunications Technician: ARA WRIGHT ([phone])[facility] ([facility])[address] [place] [address] COMPREHENSIVE METABOLIC PANE Peter 01-21-2024 Albumin [Mass/Vol] 4.0 g/dL Normal 3.5-5.0 [facility] Comment on above: Performed By: #### L [id number] ####Senior Telecommunications Technician: ARA WRIGHT ([phone])[facility])[address] [place] [address] ALP [Catalytic activity/Vol] 56 U/L Normal 38-126 [facility] Comment on above: Performed By: #### L [id number] ####Senior Telecommunications Technician: ARA WRIGHT ([phone])[facility])[address] [place] [address] ALT [Catalytic activity/Vol] 22 U/L Normal 0-49 [facility] Comment on above: Performed By: #### L [id number] ####Senior Telecommunications Technician: ARA WRIGHT ([phone])[facility] ([facility])[address] [place] [address] Anion gap [Moles/Vol] 7 mmol/L Normal 3-13 [facility] Comment on above: Performed By: #### L [id number] ####Senior Telecommunications Technician: ARA WRIGHT ([phone])[facility] ([facility])[address] [place] [address] AST [Catalytic activity/Vol] 33 U/L Normal 15-46 [facility] Comment on above: Performed By: #### L [id number] ####Senior Telecommunications Technician: ARA WRIGHT ([phone])[facility] ([facility])[address] [place] [address] Bilirubin [Mass/Vol] 0.5 mg/dL Normal 0.2-1.3 [facility] Comment on above: Performed By: #### L [id number] ####Senior Telecommunications Technician: ARA WRIGHT ([phone])[facility] ([facility])[address] [place] [address] Calcium [Mass/Vol] 9.6 mg/dL Normal 8.4-10.4 [facility] Comment on above: Performed By: #### L [id number] ####Senior Telecommunications Technician: ARA WRIGHT ([id number])[facility] ([facility])[address] [place] [address] [place] Chloride [Moles/Vol] 104 mmol/L Normal 98-107 [facility] Comment on above: Performed By: #### L [id number] ####Senior Telecommunications Technician: ARA WRIGHT ([phone])[facility] ([facility])[address] [place] [address] [place] CO2 [Moles/Vol] 22 mmol/L Normal 22-30 [facility] Comment on above: Performed By: #### L [id number] ####Senior Telecommunications Technician: ARA WRIGHT ([phone])[facility] ([facility])[address] [place] [address] Creatinine [Mass/Vol] 0.75 mg/dL Normal 0.66-1.25 [facility] Comment on above: Performed By: #### L [id number] ####Senior Telecommunications Technician: ARA WRIGHT ([phone])[facility] ([facility])[address] [place] [address] GLOMERULAR FILTRATION RATE ML/MIN/1.73 SQ M.PREDICTED >90.0 Normal >60.0 [facility] Comment on above: Result Comment: Calc ulation based on the Chronic Kidney Disease Epidemiology Collaboration (CKD-EPI) equation refit without adjustment for race Performed By: #### L [id number] ####Senior Telecommunications Technician: ARA WRIGHT ([phone])[facility] ([facility])[address] [place] [address] Glucose [Mass/Vol] 101 mg/dL High 70-100 [facility] Comment on above: Performed By: #### L [id number] ####Senior Telecommunications Technician: ARA WRIGHT ([phone])[facility] ([facility])[address] [place] [address] Potassium [Moles/Vol] 3.7 mmol/L Normal 3.5-5.1 [facility] Comment on above: Performed By: #### L [id number] ####Senior Telecommunications Technician: ARA WRIGHT ([phone])[facility] ([facility])[address] [place] [address] Protein [Mass/Vol] 7.1 g/dL Normal 6.3-8.2 [facility] Comment on above: Performed By: #### L [id number] ####Senior Telecommunications Technician: ARA WRIGHT ([phone])[facility] ([facility])[address] [place] [address] [place] Sodium [Moles/Vol] 133 mmol/L Low 135-145 [facility] Comment on above: Performed By: #### L [id number] ####Senior Telecommunications Technician: ARA WRIGHT ([phone])[facility] ([facility])[address] [place] [address] Urea nitrogen [Mass/Vol] 14 mg/dL Normal 9-20 [facility] Comment on above: Performed By: #### L [id number] ####Senior Telecommunications Technician: ARA WRIGHT ([phone])[facility] ([address] Comprehensive metabolic 1998 panelon 01-21-2024 Albumin [Mass/Vol] 4.0 g/dL 3.5 - 5.0 g/dL [facility] ALP [Catalytic activity/Vol] 56 U/L 38 - 126 U/L [facility] ALT [Catalytic activity/Vol] 22 U/L 0 - 49 U/L [facility] Anion gap [Moles/Vol] 7 mmol/L 3 - 13 mmol/L [facility] AST [Catalytic activity/Vol] 33 U/L 15 - 46 U/L [facility] Bilirubin [Mass/Vol] 0.5 mg/dL 0.2 - 1 .3 mg/dL [facility] Calcium [Mass/Vol] 9.6 mg/dL 8.4 - 10. 4 mg/dL [facility] Chloride [Moles/Vol] 104 mmol/L 98 - 10 7 mmol/L [facility] CO2 [Moles/Vol] 22 mmol/L 22 - 30 mmol/L [facility] Creatinine [Mass/Vol] 0.75 mg/dL 0.66 - 1.25 mg/dL [facility] GFR/1.73 sq M.predicted MDRD (S/P/Bld) [Vol rate/Area] - PINF [facility] Comment on above: Calculation based on the Chronic Kidney Disease Epidemiology Collaboration (CKD-EPI) equation refit without adjustment for race Glucose [Mass/Vol] 101 mg/dL High 70 - 100 mg/dL [facility] Interpretation and review of laboratory results Abnormal [facility] Potassium [Moles/Vol] 3.7 mmol/L 3.5 - 5.1 mmol/L [facility] Protein [Mass/Vol] 7.1 g/dL 6.3 - 8.2 g/dL [facility] Sodium [Moles/Vol] 133 mmol/L Low 135 - 145 mmol/L [facility] Urea nitrogen [Mass/Vol] 14 mg/dL 9 - 20 mg/dL [facility] No Panel Informationon 01-20 No [...] filling and normal phasic and spontaneous flow. Shells Inspector Details A chaudhry scale, color Doppler imaging and spectral Doppler analysis ultrasound was performed. During the study longitudinal views were obtained. The exam was performed with the patient in the supine position. Overall the study quality was adequate. Study was technically difficult due to: bedside exam. CV CPACS Nursing Noteon 01-21-2024 Nursing Note Normal [facility] Progress Noteon 01-21-2024 Progress Note Normal [facility] Progress Note Normal [facility] CARECOORDon 01-20-2024 [place] Called pt to discuss SDOH resources; pt did not answer phone. Will reach out again; noted PT recommending snf. Normal [facility] [place] Normal [facility] CBC W Auto Differential pane l (Bld)Ordered By: Oksana Hurst on 01-20-2024 Basophils (Bld) [#/Vol] 0.0 10*3/uL 0.0 - 0.2 10*3/uL [facility] Basophils/100 WBC (Bld) 0.4 % 0.0 - 2.0 % [facility] Eosinophils (Bld) [#/Vol] 0.1 10*3/uL 0.0 - 0.5 10*3/uL [facility] Eosinophils/100 WBC (Bld) 1.7 % 0.0 - 6.0 % [facility] Erythrocyte distribution width (RBC) [Ratio] 13.6 % 11.5 - 15.0 % [facility] Hematocrit (Bld) [Volume fraction] 33.2 % Low 40.0 - 52.0 % [facility] Hemoglobin (Bld) [Mass/Vol] 11.7 g/dL Low 13.0 - 18.0 g/dL [facility] Immature granulocytes (Bld) [#/Vol] 0.0 10*3/uL NINF - 0.1 10*3/uL [facility] Immature granulocytes/100 WBC (Bld) 0.4 % 0.0 - 2.0 % [facility] Interpretation and review of laboratory results Abnormal [facility] IPF 4 [facility] Lymphocytes (Bld) [#/Vol] 1.9 10*3/uL 1.0 - 4.3 10*3/uL [facility] Lymphocytes/100 WBC (Bld) 35.7 % 15.0 - 45.0 % [facility] MCH (RBC) [Entitic mass] 32.0 pg 26.0 - 34.0 pg [facility] MCHC (RBC) [Mass/Vol] 35.2 % 30.5 - 36.0 % [facility] MCV (RBC) [Entitic vol] 90.7 fL 77.0 - 99.0 fL [facility] Monocytes (Bld) [#/Vol] 0.6 10*3/uL 0.0 - 0.9 10*3/uL [facility] Monocytes/100 WBC (Bld) 11.3 % 5.0 - 13.0 % [facility] Neutrophils (Bld) [#/Vol] 2.7 10*3/uL 1.8 - 7.5 10*3/uL [facility] Neutrophils/100 WBC (Bld) 50.5 % 38.0 - 82.0 % [facility] Nucleated RBC/100 WBC (Bld) [Ratio] 0.0 % [facility] Platelet mean volume (Bld) [Entitic vol] 10.1 fL 9.0 - 12.7 fL [facility] Platelets (Bld) [#/Vol] 79 10*3/uL Low 140 - 440 10*3/uL [facility] RBC (Bld) [#/Vol] 3.66 10*6/uL Low 4.40 - 5.9 0 10*6/uL [facility] WBC (Bld) [#/Vol] 5.3 10*3/uL 3.6 - 10.7 10*3/uL [facility] CBC WITH AUTO DIFFERENTIALon 01-20-2024 Basophils (Bld) [#/Vol] 0.0 10*3/uL Normal 0.0-0.2 [facility] Comment on above: Performed By: #### L [id number] ####Senior Telecommunications Technician: ARA WRIGHT ([phone])[facility])[address] [place] [address] Basophils/100 WBC (Bld) 0.4 % Normal 0.0-2.0 [facility] Comment on above: Performed By: #### L [id number] ####Senior Telecommunications Technician: ARA WRIGHT ([phone])[facility])[address] [place] [address] Eosinophils (Bld) [#/Vol] 0.1 10*3/uL Normal 0.0-0.5 [facility] Comment on above: Performed By: #### L [id number] ####Senior Telecommunications Technician: ARA WRIGHT ([phone])[facility])[address] [place] [address] Eosinophils/100 WBC (Bld) 1.7 % Normal 0.0-6.0 [facility] Comment on above: Performed By: #### L [id number] ####Senior Telecommunications Technician: ARA WRIGHT ([phone])[facility])[address] [place] [address] Erythrocyte distribution width (RBC) [Ratio] 13.6 % Normal 11.5-15.0 [facility] Comment on above: Performed By: #### L [id number] ####Senior Telecommunications Technician: ARA WRIGHT ([phone])[facility])[address] [place] [address] Hematocrit (Bld) [Volume fraction] 33.2 % Low 40.0-52.0 [facility] Comment on above: Performed By: #### L [id number] ####Senior Telecommunications Technician: ARA WRIGHT ([phone])[facility])[address] [place] [address] Hemoglobin (Bld) [Mass/Vol] 11.7 g/dL Low 13.0-18.0 [facility] Comment on above: Performed By: #### L [id number] ####Senior Telecommunications Technician: ARA WRIGHT ([phone])[facility])[address] [place] [address] IMMATURE GRANS % 0.4 % Normal 0.0-2.0 [facility] Comment on above: Performed By: #### L [id number] ####Senior Telecommunications Technician: ARA WRIGHT ([phone])[facility])[address] [place] [address] IMMATURE GRANS ABSOLUTE 0.0 10*3/uL Normal <0.1 [facility] Comment on above: Performed By: #### L [id number] ####Senior Telecommunications Technician: ARA WRIGHT ([phone])[facility])[address] [place] [address] [place] IPF 4 Normal [facility] Comment on above: Performed By: #### L [id number] ####Senior Telecommunications Technician: ARA WRIGHT ([phone])[facility])[address] [place] [address] Lymphocytes (Bld) [#/Vol] 1.9 10*3/uL Normal 1.0-4.3 [facility] Comment on above: Performed By: #### L [id number] ####Senior Telecommunications Technician: ARA WRIGHT ([phone])[facility])[address] [place] [address] [place] Lymphocytes/100 WBC (Bld) 35.7 % Normal 15.0-45.0 [facility] Comment on above: Performed By: #### L [id number] ####Senior Telecommunications Technician: ARA WRIGHT ([phone])[facility])[address] [place] [address] MCH (RBC) [Entitic mass] 32.0 pg Normal 26.0-34.0 [facility] Comment on above: Performed By: #### L [id number] ####Senior Telecommunications Technician: ARA WRIGHT ([phone])[facility])[address] [place] [address] MCHC 35.2 % Normal 30.5-36.0 [facility] Comment on above: Performed By: #### L [id number] ####Senior Telecommunications Technician: ARA WRIGHT ([phone])[facility])[address] [place] [address] MCV (RBC) [Entitic vol] 90.7 fL Normal 77.0-99.0 [facility] Comment on above: Performed By: #### L [id number] ####Senior Telecommunications Technician: ARA WRIGHT ([phone])[facility])[address] [place] [address] Monocytes (Bld) [#/Vol] 0.6 10*3/uL Normal 0.0-0.9 [facility] Comment on above: Performed By: #### L [id number] ####Senior Telecommunications Technician: ARA WRIGHT ([phone])[facility])[address] [place] [address] Monocytes/100 WBC (Bld) 11.3 % Normal 5.0-13.0 [facility] Comment on above: Performed By: #### L [id number] ####Senior Telecommunications Technician: ARA WRIGHT ([phone])[facility])[address] [place] [address] NEUTROPHILS ABSOLUTE 2.7 10*3/uL Normal 1.8-7.5 [facility] Comment on above: Performed By: #### L [id number] ####Senior Telecommunications Technician: ARA WRIGHT ([phone])[facility])[address] [place] [address] Neutrophils/100 WBC (Bld) 50.5 % Normal 38.0-82.0 [facility] Comment on above: Performed By: #### L [id number] ####Senior Telecommunications Technician: ARA WRIGHT ([phone])[facility])[address] [place] [address] NRBC 0.0 /100 WBCs Normal 0.0-2.0 [facility] Comment on above: Performed By: #### L [id number] ####Senior Telecommunications Technician: ARA WRIGHT ([phone])[facility])[address] [place] [address] Platelet mean volume (Bld) [Entitic vol] 10.1 fL Normal 9.0-12.7 [facility] Comment on above: Performed By: #### L [id number] ####Senior Telecommunications Technician: ARA WRIGHT ([phone])[facility])[address] [place] [address] Platelets (Bld) [#/Vol] 79 10*3/uL Low 140-440 [facility] Comment on above: Performed By: #### L [id number] ####Senior Telecommunications Technician: ARA WRIGHT ([phone])[facility])[address] [place] [address] RBC (Bld) [#/Vol] 3.66 10*6/uL Low 4.40-5.90 [facility] Comment on above: Performed By: #### L [id number] ####Senior Telecommunications Technician: ARA WRIGHT ([phone])[facility])[address] [place] [address] WBC (Bld) [#/Vol] 5.3 10*3/uL Normal 3.6-10.7 [facility] Comment on above: Performed By: #### L [id number] ####Senior Telecommunications Technician: ARA WRIGHT ([phone])[facility])[address] [place] [address] COMPREHENSIVE METABOLIC PANE Peter 01-20-2024 Albumin [Mass/Vol] 4.0 g/dL Normal 3.5-5.0 [facility] Comment on above: Performed By: #### L [id number], LAB17 ####Senior Telecommunications Technician: ARA WRIGHT ([phone])[facility] ([facility])[address] [place] [address] ALP [Catalytic activity/Vol] 58 U/L Normal 38-126 [facility] Comment on above: Performed By: #### L [id number], LAB17 ####Senior Telecommunications Technician: ARA WRIGHT ([phone])[facility] ([facility])[address] [place] [address] ALT [Catalytic activity/Vol] 21 U/L Normal 0-49 [facility] Comment on above: Performed By: #### L [id number], LAB17 ####Senior Telecommunications Technician: ARA WRIGHT ([phone])[facility] ([facility])[address] [place] [address] Anion gap [Moles/Vol] 9 mmol/L Normal 3-13 [facility] Comment on above: Performed By: #### L [id number], LAB17 ####Senior Telecommunications Technician: ARA WRIGHT ([phone])[facility] ([facility])[address] [place] [address] AST [Catalytic activity/Vol] 38 U/L Normal 15-46 [facility] Comment on above: Performed By: #### L [id number], LAB17 ####Senior Telecommunications Technician: ARA WRIGHT ([phone])[facility] ([facility])[address] [place] [address] Bilirubin [Mass/Vol] 0.5 mg/dL Normal 0.2-1.3 [facility] Comment on above: Performed By: #### L [id number], LAB17 ####Senior Telecommunications Technician: ARA WRIGHT ([phone])[facility])[address] [place] [address] Calcium [Mass/Vol] 9.2 mg/dL Normal 8.4-10.4 [facility] Comment on above: Performed By: #### L AB137, LAB17 ####Senior Telecommunications Technician: ARA WRIGHT ([phone])[facility] [place] [address] Chloride [Moles/Vol] 98 mmol/L Normal 98-107 [facility] Comment on above: Performed By: #### L AB137, LAB17 ####Senior Telecommunications Technician: ARA WRIGHT ([phone])[facility] ([facility])[address] [place] [address] CO2 [Moles/Vol] 21 mmol/L Low 22-30 [facility] Comment on above: Performed By: #### L AB137, LAB17 ####Senior Telecommunications Technician: ARA WRIGHT ([phone])[facility])[address] [place] [address] Creatinine [Mass/Vol] 0.74 mg/dL Normal 0.66-1.25 [facility] Comment on above: Performed By: #### L AB137, LAB17 ####Senior Telecommunications Technician: ARA WRIGHT ([phone])[facility] ([facility])[address] [place] [address] GLOMERULAR FILTRATION RATE ML/MIN/1.73 SQ M.PREDICTED >90.0 Normal >60.0 [facility] Comment on above: Result Comment: Calc ulation based on the Chronic Kidney Disease Epidemiology Collaboration (CKD-EPI) equation refit without adjustment for race Performed By: #### L AB137, LAB17 ####Senior Telecommunications Technician: ARA WRIGHT ([phone])[facility] ([facility])[address] [place] [address] Glucose [Mass/Vol] 100 mg/dL Normal 70-100 [facility] Comment on above: Performed By: #### L [id number], LAB17 ####Senior Telecommunications Technician: ARA WRIGHT ([phone])[facility])[address] [place] [address] Potassium [Moles/Vol] 3.7 mmol/L Normal 3.5-5.1 [facility] Comment on above: Performed By: #### L AB137, LAB17 ####Senior Telecommunications Technician: ARA [phone])[facility])[address] [place] [address] Protein [Mass/Vol] 7.0 g/dL Normal 6.3-8.2 [facility] Comment on above: Performed By: #### L AB137, LAB17 ####Senior Telecommunications Technician: ARA WRIGHT ([phone])[facility] ([facility])[address] [place] [address] Sodium [Moles/Vol] 129 mmol/L Low 135-145 [facility] Comment on above: Performed By: #### L [id number], LAB17 ####Senior Telecommunications Technician: ARA WRIGHT ([id number])[facility] ([facility])[address] [place] [address] Urea nitrogen [Mass/Vol] 8 mg/dL Low 9-20 [facility] Comment on above: Performed By: #### L [id number], LAB17 ####Senior Telecommunications Technician: ARA WRIGHT ([phone])[facility] ([facility])[address] [place] [address] Comprehensive metabolic 1998 panelon 01-20-2024 Albumin [Mass/Vol] 4.0 g/dL 3.5 - 5.0 g/dL [facility] ALP [Catalytic activity/Vol] 58 U/L 38 - 126 U/L [facility] ALT [Catalytic activity/Vol] 21 U/L 0 - 49 U/L [facility] Anion gap [Moles/Vol] 9 mmol/L 3 - 13 mmol/L [facility] AST [Catalytic activity/Vol] 38 U/L 15 - 46 U/L [facility] Bilirubin [Mass/Vol] 0.5 mg/dL 0.2 - 1 .3 mg/dL [facility] Calcium [Mass/Vol] 9.2 mg/dL 8.4 - 10. 4 mg/dL [facility] Chloride [Moles/Vol] 98 mmol/L 98 - 10 7 mmol/L [facility] CO2 [Moles/Vol] 21 mmol/L Low 22 - 30 mmol/L [facility] Creatinine [Mass/Vol] 0.74 mg/dL 0.66 - 1.25 mg/dL [facility] GFR/1.73 sq M.predicted MDRD (S/P/Bld) [Vol rate/Area] - PINF [facility] Comment on above: Calculation based on the Chronic Kidney Disease Epidemiology Collaboration (CKD-EPI) equation refit without adjustment for race Glucose [Mass/Vol] 100 mg/dL 70 - 100 mg/dL [facility] Interpretation and review of laboratory results Abnormal [facility] Potassium [Moles/Vol] 3.7 mmol/L 3.5 - 5.1 mmol/L [facility] Protein [Mass/Vol] 7.0 g/dL 6.3 - 8.2 g/dL [facility] Sodium [Moles/Vol] 129 mmol/L Low 135 - 145 mmol/L [facility] Urea nitrogen [Mass/Vol] 8 mg/dL Low 9 - 20 mg/dL [facility] ECG 12-LEADon 01-20-2024 ECG 12-LEAD IMPRESSION: Sinus rhythm RBBB and LAFB Electronically Signed On 01-20-2024 12:33:18 EDT by Júnior Salter Normal [facility] FREE T4on 01-20-2024 Free T4 [Mass/Vol] 1.07 ng/dL Normal 0.78-2.19 [facility] Comment on above: Performed By: #### L [id number] ####Senior Telecommunications Technician: ARA WRIGHT ([phone])[address] Free T3 [Mass/Vol]on Interpretation and review of laboratory results Normal [facility] Free T4 [Mass/Vol]on Free T4 Dialysis [Mass/Vol] 1.07 ng/dL 0.78 - 2.19 ng/dL [facility] Interpretation and review of laboratory results Normal [facility] Laboratory - Chemistry and C hemistry - challengeon 01-20-2024 Free T3 [Mass/Vol] 3.48 pg/mL 2.77 - 5. 27 pg/mL [facility] No Panel InformationOrdered By: Júnior Salter on 01-20-2024 P [place] 47 degrees [email or web address] Work Phone: [place] Interval 162 ms [employer] Work Phone: QRS [place] -50 degrees [employer] Work Phone: QRSD Interval 138 ms [employer] Work Phone: QT Interval 394 ms [facility] Work Phone: QTC Interval 471 ms [employer] Work Phone: T Wave [place] 7 degrees [employer] Work Phone: [employer] Work Phone: No Panel Informationon 01-19 Sinus rhythm RBBB and LAFB Electronically Signed On 01-20-2024 12:33:18 EDT by Júnior Dockery MD - 01/20/2024 IMPRESSION: Sinus rhythm RBBB and LAFB Electronically Signed On 01-20-2024 12:33:18 EDT by Júnior Salter [facility] Progress Noteon 01-20-2024 Progress Note Normal [facility] Progress Note Normal [facility] Progress Note Normal [facility] T3 FREEon 01-20-2024 Free T3 [Mass/Vol] 3.48 pg/mL Normal 2.77-5.27 [facility] Comment on above: Performed By: #### L [id number], [id number] ####Senior Telecommunications Technician: ARA WRIGHT ([phone])[address] Vital signsOrdered By: Júnior Salter on 01-20-2024 Heart rate 86 /min bpm [employer] Work Phone: CARECOORDon 01-19-2024 CARECOORD Normal [facility] CBC W Auto Differential pane l (Bld)on 01-19-2024 Basophils (Bld) [#/Vol] 0.0 10*3/uL 0.0 - 0.2 10*3/uL [facility] Basophils/100 WBC (Bld) 0.4 % 0.0 - 2.0 % [facility] Eosinophils (Bld) [#/Vol] 0.1 10*3/uL 0.0 - 0.5 10*3/uL [facility] Eosinophils/100 WBC (Bld) 1.4 % 0.0 - 6.0 % [facility] Erythrocyte distribution width (RBC) [Ratio] 13.4 % 11.5 - 15.0 % [email or web address] Hematocrit (Bld) [Volume fraction] 33.2 % Low 40.0 - 52.0 % [facility] Hemoglobin (Bld) [Mass/Vol] 11.5 g/dL Low 13.0 - 18.0 g/dL [email or web address] Immature granulocytes (Bld) [#/Vol] 0.0 10*3/uL NINF - 0.1 10*3/uL [facility] Immature granulocytes/100 WBC (Bld) 0.2 % 0.0 - 2.0 % [facility] Interpretation and review of laboratory results Abnormal [facility] IPF 3 [facility] Lymphocytes (Bld) [#/Vol] 1.8 10*3/uL 1.0 - 4.3 10*3/uL [facility] Lymphocytes/100 WBC (Bld) 31.7 % 15.0 - 45.0 % [facility] MCH (RBC) [Entitic mass] 31.8 pg 26.0 - 34.0 pg [facility] MCHC (RBC) [Mass/Vol] 34.6 % 30.5 - 36.0 % [facility] MCV (RBC) [Entitic vol] 91.7 fL 77.0 - 99.0 fL [email or web address] Monocytes (Bld) [#/Vol] 0.5 10*3/uL 0.0 - 0.9 10*3/uL [facility] Monocytes/100 WBC (Bld) 8.6 % 5.0 - 13.0 % [facility] Neutrophils (Bld) [#/Vol] 3.2 10*3/uL 1.8 - 7.5 10*3/uL [facility] Neutrophils/100 WBC (Bld) 57.7 % 38.0 - 82.0 % [facility] Nucleated RBC/100 WBC (Bld) [Ratio] 0.0 % [email or web address] Platelet mean volume (Bld) [Entitic vol] 10.0 fL 9.0 - 12.7 fL [email or web address] Platelets (Bld) [#/Vol] 70 10*3/uL Low 140 - 440 10*3/uL [facility] RBC (Bld) [#/Vol] 3.62 10*6/uL Low 4.40 - 5.9 0 10*6/uL [facility] WBC (Bld) [#/Vol] 5.6 10*3/uL 3.6 - 10.7 10*3/uL [facility] CBC WITH AUTO DIFFERENTIALon 01-19-2024 Basophils (Bld) [#/Vol] 0.0 10*3/uL Normal 0.0-0.2 [facility] Comment on above: Performed By: #### L [id number] ####Senior Telecommunications Technician: ARA WRIGHT ([phone])[facility])[address] [place] [address] Basophils/100 WBC (Bld) 0.4 % Normal 0.0-2.0 [facility] Comment on above: Performed By: #### L [id number] ####Senior Telecommunications Technician: ARA WRIGHT ([phone])[facility])[address] [place] [address] Eosinophils (Bld) [#/Vol] 0.1 10*3/uL Normal 0.0-0.5 [facility] Comment on above: Performed By: #### L [id number] ####Senior Telecommunications Technician: ARA WRIGHT ([phone])[facility] ([facility])[address] [place] [address] Eosinophils/100 WBC (Bld) 1.4 % Normal 0.0-6.0 [facility] Comment on above: Performed By: #### L [id number] ####Senior Telecommunications Technician: ARA WRIGHT ([phone])[facility])[address] [place] [address] Erythrocyte distribution width (RBC) [Ratio] 13.4 % Normal 11.5-15.0 [facility] Comment on above: Performed By: #### L [id number] ####Senior Telecommunications Technician: ARA WRIGHT ([phone])[facility])[address] [place] [address] Hematocrit (Bld) [Volume fraction] 33.2 % Low 40.0-52.0 [facility] Comment on above: Performed By: #### L [id number] ####Senior Telecommunications Technician: ARA WRIGHT ([phone])[facility])[address] [place] [address] Hemoglobin (Bld) [Mass/Vol] 11.5 g/dL Low 13.0-18.0 [facility] Comment on above: Performed By: #### L [id number] ####Senior Telecommunications Technician: ARA WRIGHT ([phone])[facility])[address] [place] [address] IMMATURE GRANS % 0.2 % Normal 0.0-2.0 [facility] Comment on above: Performed By: #### L [id number] ####Senior Telecommunications Technician: ARA WRIGHT ([phone])[facility])[address] [place] [address] IMMATURE GRANS ABSOLUTE 0.0 10*3/uL Normal <0.1 [facility] Comment on above: Performed By: #### L [id number] ####Senior Telecommunications Technician: ARA WRIGHT ([phone])[facility])[address] [place] [address] [place] IPF 3 Normal [facility] Comment on above: Performed By: #### L [id number] ####Senior Telecommunications Technician: ARA WRIGHT ([phone])[facility])[address] [place] [address] Lymphocytes (Bld) [#/Vol] 1.8 10*3/uL Normal 1.0-4.3 [facility] Comment on above: Performed By: #### L [id number] ####Senior Telecommunications Technician: ARA WRIGHT ([phone])[facility])[address] [place] [address] Lymphocytes/100 WBC (Bld) 31.7 % Normal 15.0-45.0 [facility] Comment on above: Performed By: #### L [id number] ####Senior Telecommunications Technician: ARA WRIGHT ([phone])[facility])[address] [place] [address] MCH (RBC) [Entitic mass] 31.8 pg Normal 26.0-34.0 [facility] Comment on above: Performed By: #### L [id number] ####Senior Telecommunications Technician: ARA WRIGHT ([phone])[facility])[address] [place] [address] MCHC 34.6 % Normal 30.5-36.0 [facility] Comment on above: Performed By: #### L [id number] ####Senior Telecommunications Technician: ARA WRIGHT ([phone])[facility])[address] [place] [address] MCV (RBC) [Entitic vol] 91.7 fL Normal 77.0-99.0 [facility] Comment on above: Performed By: #### L [id number] ####Senior Telecommunications Technician: ARA WRIGHT ([phone])[facility])[address] [place] [address] Monocytes (Bld) [#/Vol] 0.5 10*3/uL Normal 0.0-0.9 [facility] Comment on above: Performed By: #### L [id number] ####Senior Telecommunications Technician: ARA WRIGHT ([phone])[facility])[address] [place] [address] Monocytes/100 WBC (Bld) 8.6 % Normal 5.0-13.0 [facility] Comment on above: Performed By: #### L [id number] ####Senior Telecommunications Technician: ARA WRIGHT ([phone])[facility])[address] [place] [address] NEUTROPHILS ABSOLUTE 3.2 10*3/uL Normal 1.8-7.5 [facility] Comment on above: Performed By: #### L [id number] ####Senior Telecommunications Technician: ARA WRIGHT ([phone])[facility])[address] [place] [address] Neutrophils/100 WBC (Bld) 57.7 % Normal 38.0-82.0 [facility] Comment on above: Performed By: #### L [id number] ####Senior Telecommunications Technician: ARA WRIGHT ([phone])[facility] [place] [address] NRBC 0.0 /100 WBCs Normal 0.0-2.0 [facility] Comment on above: Performed By: #### L [id number] ####Senior Telecommunications Technician: ARA WRIGHT ([phone])[facility] ([facility])[address] [place] [address] Platelet mean volume (Bld) [Entitic vol] 10.0 fL Normal 9.0-12.7 [facility] Comment on above: Performed By: #### L [id number] ####Senior Telecommunications Technician: ARA WRIGHT ([phone])[facility] ([facility])[address] [place] [address] Platelets (Bld) [#/Vol] 70 10*3/uL Low 140-440 [facility] Comment on above: Performed By: #### L [id number] ####Senior Telecommunications Technician: ARA WRIGHT ([phone])[facility] ([facility])[address] [place] [address] RBC (Bld) [#/Vol] 3.62 10*6/uL Low 4.40-5.90 [facility] Comment on above: Performed By: #### L [id number] ####Senior Telecommunications Technician: ARA WRIGHT ([phone])[facility])[address] [place] [address] WBC (Bld) [#/Vol] 5.6 10*3/uL Normal 3.6-10.7 [facility] Comment on above: Performed By: #### L [id number] ####Senior Telecommunications Technician: ARA WRIGHT ([phone])[facility])[address] [place] [address] COMPREHENSIVE METABOLIC PANE Peter 01-19-2024 Albumin [Mass/Vol] 3.9 g/dL Normal 3.5-5.0 [facility] Comment on above: Performed By: #### L AB17, [id number], [id number] ####Senior Telecommunications Technician: ARA WRIGHT ([phone])[facility])[address] [place] [address] [place] ALP [Catalytic activity/Vol] 56 U/L Normal 38-126 [facility] Comment on above: Performed By: #### L AB17, [id number], [id number] ####Senior Telecommunications Technician: ARA WRIGHT ([phone])[facility] ([facility])[address] [place] [address] [place] ALT [Catalytic activity/Vol] 16 U/L Normal 0-49 [facility] Comment on above: Performed By: #### L AB17, [id number], [id number] ####Senior Telecommunications Technician: ARA WRIGHT ([phone])[facility] ([facility])[address] [place] [address] Anion gap [Moles/Vol] 9 mmol/L Normal 3-13 [facility] Comment on above: Performed By: #### [place] AB17, [id number], [id number] ####Senior Telecommunications Technician: ARA WRIGHT ([id number])[facility] ([facility])[address] [place] [address] AST [Catalytic activity/Vol] 27 U/L Normal 15-46 [facility] Comment on above: Performed By: #### Popeye WOOD, [id number], [id number] ####Senior Telecommunications Technician: ARA WRIGHT ([phone])[facility] ([facility])[address] [place] [address] [place] Bilirubin [Mass/Vol] 0.5 mg/dL Normal 0.2-1.3 [facility] Comment on above: Performed By: #### Pope[place] AB17, [id number], [id number] ####Senior Telecommunications Technician: ARA WRIGHT ([phone])[facility] ([facility])[address] [place] [address] [place] Calcium [Mass/Vol] 9.2 mg/dL Normal 8.4-10.4 [facility] Comment on above: Performed By: #### L AB17, [id number], [id number] ####Senior Telecommunications Technician: ARA WRIGHT ([phone])[facility] ([facility])[address] [place] [address] [place] Chloride [Moles/Vol] 100 mmol/L Normal 98-107 [facility] Comment on above: Performed By: #### L AB17, [id number], VTN970 ####Senior Telecommunications Technician: ARA WRIGHT ([phone])[facility])[address] [place] [address] CO2 [Moles/Vol] 20 mmol/L Low 22-30 [facility] Comment on above: Performed By: #### L AB17, [id number], VHR296 ####Senior Telecommunications Technician: ARA WRIGHT ([phone])[facility] ([facility])[address] [place] [address] Creatinine [Mass/Vol] 0.72 mg/dL Normal 0.66-1.25 [facility] Comment on above: Performed By: #### [place] AB17, EQO536, EUQ785 ####Senior Telecommunications Technician: ARA WRIGHT ([phone])[facility])[address] [place] [address] GLOMERULAR FILTRATION RATE ML/MIN/1.73 SQ M.PREDICTED >90.0 Normal >60.0 [facility] Comment on above: Result Comment: Calc ulation based on the Chronic Kidney Disease Epidemiology Collaboration (CKD-EPI) equation refit without adjustment for race Performed By: #### [place] AB17, [id number], [id number] ####Senior Telecommunications Technician: ARA WRIGHT ([phone])[facility] ([facility])[address] [place] [address] Glucose [Mass/Vol] 126 mg/dL High 70-100 [facility] Comment on above: Performed By: #### L AB17, [id number], [id number] ####Senior Telecommunications Technician: ARA WRIGHT ([phone])[facility])[address] [place] [address] Potassium [Moles/Vol] 3.7 mmol/L Normal 3.5-5.1 [facility] Comment on above: Performed By: #### L AB17, [id number], [id number] ####Senior Telecommunications Technician: ARA WRIGHT ([phone])[facility])[address] [place] [address] Protein [Mass/Vol] 6.9 g/dL Normal 6.3-8.2 [facility] Comment on above: Performed By: #### L AB17, ZKE600, ZPQ352 ####Senior Telecommunications Technician: ARA WRIGHT ([phone])[facility] ([facility])[address] [place] [address] Sodium [Moles/Vol] 129 mmol/L Low 135-145 [facility] Comment on above: Performed By: #### L AB17, KDE703, [id number] ####Senior Telecommunications Technician: ARA WRIGHT ([phone])[facility] ([facility])[address] [place] [address] Urea nitrogen [Mass/Vol] 14 mg/dL Normal 9-20 [facility] Comment on above: Performed By: #### L AB17, [id number], [id number] ####Senior Telecommunications Technician: ARA WRIGHT ([phone])[facility] ([facility])[address] [place] [address] Comprehensive metabolic 1998 panelon 01-19-2024 Albumin [Mass/Vol] 3.9 g/dL 3.5 - 5.0 g/dL [facility] ALP [Catalytic activity/Vol] 56 U/L 38 - 126 U/L [facility] ALT [Catalytic activity/Vol] 16 U/L 0 - 49 U/L [facility] Anion gap [Moles/Vol] 9 mmol/L 3 - 13 mmol/L [facility] AST [Catalytic activity/Vol] 27 U/L 15 - 46 U/L [facility] Bilirubin [Mass/Vol] 0.5 mg/dL 0.2 - 1 .3 mg/dL [facility] Calcium [Mass/Vol] 9.2 mg/dL 8.4 - 10. 4 mg/dL [facility] Chloride [Moles/Vol] 100 mmol/L 98 - 10 7 mmol/L [facility] CO2 [Moles/Vol] 20 mmol/L Low 22 - 30 mmol/L [facility] Creatinine [Mass/Vol] 0.72 mg/dL 0.66 - 1.25 mg/dL [facility] GFR/1.73 sq M.predicted MDRD (S/P/Bld) [Vol rate/Area] - PINF [facility] Comment on above: Calculation based on the Chronic Kidney Disease Epidemiology Collaboration (CKD-EPI) equation refit without adjustment for race Glucose [Mass/Vol] 126 mg/dL High 70 - 100 mg/dL [facility] Interpretation and review of laboratory results Abnormal [facility] Potassium [Moles/Vol] 3.7 mmol/L 3.5 - 5.1 mmol/L [facility] Protein [Mass/Vol] 6.9 g/dL 6.3 - 8.2 g/dL [facility] Sodium [Moles/Vol] 129 mmol/L Low 135 - 145 mmol/L [facility] Urea nitrogen [Mass/Vol] 14 mg/dL 9 - 20 mg/dL [facility] IDNon 01-19-2024 IDN Normal [facility] Laboratory - Chemistry and C hemistry - challengeon 01-19-2024 TSH Qn 4.844 m[IU]/L High [facility] Magnesium [Mass/Vol] 1.6 mg/dL 1.6 - 2 .3 mg/dL [facility] MAGNESIUMon 01-19-2024 Magnesium [Mass/Vol] 1.6 mg/dL Normal 1.6-2.3 [facility] Comment on above: Performed By: #### L AB17, [id number], [id number] ####Senior Telecommunications Technician: ARA WRIGHT ([phone])[facility])[address] [place] [address] Magnesium [Mass/Vol]on 01-18 Interpretation and review of laboratory results Normal [facility] Progress Noteon 01-19-2024 Progress Note Normal [facility] Progress Note Normal [facility] Progress Note Normal [facility] Progress Note Normal [facility] THYROID STIMULATING HORMONEo n 01-19-2024 THYROID STIMULATING HORMONE 4.844 uIU/mL High 0.465-4.680 [facility] Comment on above: Performed By: #### L AB17, [id number], [id number] ####Senior Telecommunications Technician: ARA WRIGHT ([phone])[facility] ([facility])[address] [place] [address] [place] TSH Qnon 01-19-2024 Interpretation and review of laboratory results Abnormal [facility] CARECOORDon 01-18-2024 CARECOORD Normal [facility] CBC W Auto Differential pane l (Bld)Ordered By: Anna Hensley on 01-18-2024 Basophils (Bld) [#/Vol] 0.0 10*3/uL 0.0 - 0.2 10*3/uL [facility] Basophils/100 WBC (Bld) 0.4 % 0.0 - 2.0 % [facility] Eosinophils (Bld) [#/Vol] 0.1 10*3/uL 0.0 - 0.5 10*3/uL [facility] Eosinophils/100 WBC (Bld) 1.9 % 0.0 - 6.0 % [facility] Erythrocyte distribution width (RBC) [Ratio] 13.5 % 11.5 - 15.0 % [facility] Hematocrit (Bld) [Volume fraction] 34.3 % Low 40.0 - 52.0 % [facility] Hemoglobin (Bld) [Mass/Vol] 12.1 g/dL Low 13.0 - 18.0 g/dL [facility] Immature granulocytes (Bld) [#/Vol] 0.0 10*3/uL NINF - 0.1 10*3/uL [facility] Immature granulocytes/100 WBC (Bld) 0.6 % 0.0 - 2.0 % [facility] Interpretation and review of laboratory results Abnormal [facility] IPF 4 [facility] Lymphocytes (Bld) [#/Vol] 2.0 10*3/uL 1.0 - 4.3 10*3/uL [facility] Lymphocytes/100 WBC (Bld) 37.8 % 15.0 - 45.0 % [facility] MCH (RBC) [Entitic mass] 31.8 pg 26.0 - 34.0 pg [facility] MCHC (RBC) [Mass/Vol] 35.3 % 30.5 - 36.0 % [facility] MCV (RBC) [Entitic vol] 90.0 fL 77.0 - 99.0 fL [facility] Monocytes (Bld) [#/Vol] 0.4 10*3/uL 0.0 - 0.9 10*3/uL [facility] Monocytes/100 WBC (Bld) 7.9 % 5.0 - 13.0 % [facility] Neutrophils (Bld) [#/Vol] 2.7 10*3/uL 1.8 - 7.5 10*3/uL [facility] Neutrophils/100 WBC (Bld) 51.4 % 38.0 - 82.0 % [facility] Nucleated RBC/100 WBC (Bld) [Ratio] 0.0 % [facility] Platelet mean volume (Bld) [Entitic vol] 10.2 fL 9.0 - 12.7 fL [facility] Platelets (Bld) [#/Vol] 62 10*3/uL Low 140 - 440 10*3/uL [facility] RBC (Bld) [#/Vol] 3.81 10*6/uL Low 4.40 - 5.9 0 10*6/uL [facility] WBC (Bld) [#/Vol] 5.3 10*3/uL 3.6 - 10.7 10*3/uL [facility] CBC WITH AUTO DIFFERENTIALon 01-18-2024 Basophils (Bld) [#/Vol] 0.0 10*3/uL Normal 0.0-0.2 [facility] Comment on above: Performed By: #### L [id number] ####Senior Telecommunications Technician: ARA WRIGHT ([phone])[address] Basophils/100 WBC (Bld) 0.4 % Normal 0.0-2.0 [facility] Comment on above: Performed By: #### L [id number] ####Senior Telecommunications Technician: ARA WRIGHT ([phone])[facility])[address] [place] [address] Eosinophils (Bld) [#/Vol] 0.1 10*3/uL Normal 0.0-0.5 [facility] Comment on above: Performed By: #### L [id number] ####Senior Telecommunications Technician: ARA WRIGHT ([phone])[facility])[address] [place] [address] Eosinophils/100 WBC (Bld) 1.9 % Normal 0.0-6.0 [facility] Comment on above: Performed By: #### L [id number] ####Senior Telecommunications Technician: ARA WRIGHT ([phone])[facility])[address] [place] [address] Erythrocyte distribution width (RBC) [Ratio] 13.5 % Normal 11.5-15.0 [facility] Comment on above: Performed By: #### L [id number] ####Senior Telecommunications Technician: ARA WRIGHT ([phone])[facility])[address] [place] [address] Hematocrit (Bld) [Volume fraction] 34.3 % Low 40.0-52.0 [facility] Comment on above: Performed By: #### L [id number] ####Senior Telecommunications Technician: ARA WRIGHT ([phone])[facility])[address] [place] [address] Hemoglobin (Bld) [Mass/Vol] 12.1 g/dL Low 13.0-18.0 [facility] Comment on above: Performed By: #### L [id number] ####Senior Telecommunications Technician: ARA WRIGHT ([phone])[facility])[address] [place] [address] IMMATURE GRANS % 0.6 % Normal 0.0-2.0 [facility] Comment on above: Performed By: #### L [id number] ####Senior Telecommunications Technician: ARA WRIGHT ([phone])[facility])[address] [place] [address] IMMATURE GRANS ABSOLUTE 0.0 10*3/uL Normal <0.1 [facility] Comment on above: Performed By: #### L [id number] ####Senior Telecommunications Technician: ARA WRIGHT ([phone])[facility])[address] [place] [address] IPF 4 Normal [facility] Comment on above: Performed By: #### L [id number] ####Senior Telecommunications Technician: ARA WRIGHT ([phone])[facility])[address] [place] [address] Lymphocytes (Bld) [#/Vol] 2.0 10*3/uL Normal 1.0-4.3 [facility] Comment on above: Performed By: #### L [id number] ####Senior Telecommunications Technician: ARA WRIGHT ([phone])[facility])[address] [place] [address] Lymphocytes/100 WBC (Bld) 37.8 % Normal 15.0-45.0 [facility] Comment on above: Performed By: #### L [id number] ####Senior Telecommunications Technician: ARA WRIGHT ([phone])[facility])[address] [place] [address] MCH (RBC) [Entitic mass] 31.8 pg Normal 26.0-34.0 [facility] Comment on above: Performed By: #### L [id number] ####Senior Telecommunications Technician: ARA WRIGHT ([phone])[facility])[address] [place] [address] MCHC 35.3 % Normal 30.5-36.0 [facility] Comment on above: Performed By: #### L [id number] ####Senior Telecommunications Technician: ARA WRIGHT ([phone])[facility])[address] [place] [address] MCV (RBC) [Entitic vol] 90.0 fL Normal 77.0-99.0 [facility] Comment on above: Performed By: #### L [id number] ####Senior Telecommunications Technician: ARA WRIGHT ([phone])[facility])[address] [place] [address] Monocytes (Bld) [#/Vol] 0.4 10*3/uL Normal 0.0-0.9 [facility] Comment on above: Performed By: #### L [id number] ####Senior Telecommunications Technician: ARA WRIGHT ([phone])[facility])[address] [place] [address] Monocytes/100 WBC (Bld) 7.9 % Normal 5.0-13.0 [facility] [facility] Comment on above: Performed By: #### L [id number] ####Senior Telecommunications Technician: ARA WRIGHT ([phone])[facility] ([facility])[address] [place] [address] NEUTROPHILS ABSOLUTE 2.7 10*3/uL Normal 1.8-7.5 [facility] Comment on above: Performed By: #### L [id number] ####Senior Telecommunications Technician: ARA WRIGHT ([phone])[facility] ([facility])[address] [place] [address] Neutrophils/100 WBC (Bld) 51.4 % Normal 38.0-82.0 [facility] Comment on above: Performed By: #### L [id number] ####Senior Telecommunications Technician: ARA WRIGHT ([phone])[facility])[address] [place] [address] NRBC 0.0 /100 WBCs Normal 0.0-2.0 [facility] Comment on above: Performed By: #### L [id number] ####Senior Telecommunications Technician: ARA WRIGHT ([phone])[facility] ([facility])[address] [place] [address] Platelet mean volume (Bld) [Entitic vol] 10.2 fL Normal 9.0-12.7 [facility] Comment on above: Performed By: #### L [id number] ####Senior Telecommunications Technician: ARA WRIGHT ([phone])[facility] ([facility])[address] [place] [address] Platelets (Bld) [#/Vol] 62 10*3/uL Low 140-440 [facility] Comment on above: Performed By: #### L [id number] ####Senior Telecommunications Technician: ARA WRIGHT ([phone])[facility] ([facility])[address] [place] [address] [place] RBC (Bld) [#/Vol] 3.81 10*6/uL Low 4.40-5.90 [facility] Comment on above: Performed By: #### L [id number] ####Senior Telecommunications Technician: ARA WRIGHT ([phone])[facility] ([facility])[address] [place] [address] WBC (Bld) [#/Vol] 5.3 10*3/uL Normal 3.6-10.7 [facility] Comment on above: Performed By: #### L [id number] ####Senior Telecommunications Technician: ARA WRIGHT ([phone])[facility] ([facility])[address] [place] [address] COMPREHENSIVE METABOLIC PANE Peter 01-18-2024 Albumin [Mass/Vol] 3.9 g/dL Normal 3.5-5.0 [facility] Comment on above: Performed By: #### L AB17, [id number] ####Senior Telecommunications Technician: ARA WRIGHT ([phone])[facility] ([facility])[address] [place] [address] ALP [Catalytic activity/Vol] 59 U/L Normal 38-126 [facility] Comment on above: Performed By: #### L AB17, [id number] ####Senior Telecommunications Technician: ARA WRIGHT ([phone])[facility] ([facility])[address] [place] [address] ALT [Catalytic activity/Vol] 16 U/L Normal 0-49 [facility] Comment on above: Performed By: #### L AB17, [id number] ####Senior Telecommunications Technician: ARA WRIGHT ([phone])[facility] ([facility])[address] [place] [address] Anion gap [Moles/Vol] 9 mmol/L Normal 3-13 [facility] Comment on above: Performed By: #### L AB17, [id number] ####Senior Telecommunications Technician: ARA WRIGHT ([phone])[facility] ([facility])[address] [place] [address] AST [Catalytic activity/Vol] 26 U/L Normal 15-46 [facility] Comment on above: Performed By: #### L AB17, [id number] ####Senior Telecommunications Technician: ARA WRIGHT ([phone])[facility] ([facility])[address] [place] [address] Bilirubin [Mass/Vol] 0.7 mg/dL Normal 0.2-1.3 [facility] Comment on above: Performed By: #### L AB17, [id number] ####Senior Telecommunications Technician: ARA WRIGHT ([phone])[facility] ([facility])[address] [place] [address] Calcium [Mass/Vol] 9.0 mg/dL Normal 8.4-10.4 [facility] Comment on above: Performed By: #### L AB17, [id number] ####Senior Telecommunications Technician: ARA WRIGHT ([phone])[facility] ([facility])[address] [place] [address] Chloride [Moles/Vol] 101 mmol/L Normal 98-107 [facility] Comment on above: Performed By: #### L AB17, [id number] ####Senior Telecommunications Technician: ARA WRIGHT ([phone])[facility] ([facility])[address] [place] [address] CO2 [Moles/Vol] 22 mmol/L Normal 22-30 [facility] Comment on above: Performed By: #### L AB17, [id number] ####Senior Telecommunications Technician: ARA WRIGHT ([phone])[facility] ([facility])[address] [place] [address] Creatinine [Mass/Vol] 0.70 mg/dL Normal 0.66-1.25 [facility] Comment on above: Performed By: #### L AB17, [id number] ####Senior Telecommunications Technician: ARA WRIGHT ([phone])[facility])[address] [place] [address] GLOMERULAR FILTRATION RATE ML/MIN/1.73 SQ M.PREDICTED >90.0 Normal >60.0 [facility] Comment on above: Result Comment: Calc ulation based on the Chronic Kidney Disease Epidemiology Collaboration (CKD-EPI) equation refit without adjustment for race Performed By: #### L AB17, [id number] ####Senior Telecommunications Technician: ARA WRIGHT ([phone])[facility] ([facility])[address] [place] [address] [place] Glucose [Mass/Vol] 123 mg/dL High 70-100 [facility] Comment on above: Performed By: #### L AB17, [id number] ####Senior Telecommunications Technician: ARA WRIGHT ([phone])[facility])[address] [place] [address] Potassium [Moles/Vol] 3.6 mmol/L Normal 3.5-5.1 [facility] Comment on above: Performed By: #### L AB17, [id number] ####Senior Telecommunications Technician: ARA WRIGHT ([phone])[facility] ([facility])[address] [place] [address] Protein [Mass/Vol] 6.9 g/dL Normal 6.3-8.2 [facility] Comment on above: Performed By: #### L AB17, [id number] ####Senior Telecommunications Technician: ARA WRIGHT ([id number])[facility] ([facility])[address] [place] [address] Sodium [Moles/Vol] 132 mmol/L Low 135-145 [facility] Comment on above: Performed By: #### L AB17, [id number] ####Senior Telecommunications Technician: ARA WRIGHT ([phone])[facility] ([facility])[address] [place] [address] Urea nitrogen [Mass/Vol] 14 mg/dL Normal 9-20 [facility] Comment on above: Performed By: #### L AB17, [id number] ####Senior Telecommunications Technician: ARA WRIGHT ([phone])[facility])[address] [place] [address] Comprehensive metabolic 1998 panelon 01-18-2024 Albumin [Mass/Vol] 3.9 g/dL 3.5 - 5.0 g/dL [facility] ALP [Catalytic activity/Vol] 59 U/L 38 - 126 U/L [facility] ALT [Catalytic activity/Vol] 16 U/L 0 - 49 U/L [facility] Anion gap [Moles/Vol] 9 mmol/L 3 - 13 mmol/L [facility] AST [Catalytic activity/Vol] 26 U/L 15 - 46 U/L [facility] Bilirubin [Mass/Vol] 0.7 mg/dL 0.2 - 1 .3 mg/dL [facility] Calcium [Mass/Vol] 9.0 mg/dL 8.4 - 10. 4 mg/dL [facility] Chloride [Moles/Vol] 101 mmol/L 98 - 10 7 mmol/L [facility] CO2 [Moles/Vol] 22 mmol/L 22 - 30 mmol/L [facility] Creatinine [Mass/Vol] 0.70 mg/dL 0.66 - 1.25 mg/dL [facility] GFR/1.73 sq M.predicted MDRD (S/P/Bld) [Vol rate/Area] - PINF [facility] Comment on above: Calculation based on the Chronic Kidney Disease Epidemiology Collaboration (CKD-EPI) equation refit without adjustment for race Glucose [Mass/Vol] 123 mg/dL High 70 - 100 mg/dL [facility] Interpretation and review of laboratory results Abnormal [facility] Potassium [Moles/Vol] 3.6 mmol/L 3.5 - 5.1 mmol/L [facility] Protein [Mass/Vol] 6.9 g/dL 6.3 - 8.2 g/dL [facility] Sodium [Moles/Vol] 132 mmol/L Low 135 - 145 mmol/L [facility] Urea nitrogen [Mass/Vol] 14 mg/dL 9 - 20 mg/dL [facility] Laboratory - Chemistry and C hemistry - challengeon 01-18-2024 Magnesium [Mass/Vol] 1.8 mg/dL 1.6 - 2 .3 mg/dL [facility] MAGNESIUMon 01-18-2024 Magnesium [Mass/Vol] 1.8 mg/dL Normal 1.6-2.3 [facility] Comment on above: Performed By: #### L AB17, [id number] ####Senior Telecommunications Technician: ARA WRIGHT ([phone])[facility] ([address] Magnesium [Mass/Vol]on 01-17 Interpretation and review of laboratory results Normal [facility] Progress Noteon 01-18-2024 Progress Note Normal [facility] Progress Note Normal [facility] Progress Note Normal [facility] CBC W Auto Differential pane l (Bld)Ordered By: Denita Chappell on 01-17-2024 Basophils (Bld) [#/Vol] 0.0 10*3/uL 0.0 - 0.2 10*3/uL [facility] Basophils/100 WBC (Bld) 0.5 % 0.0 - 2.0 % [facility] Eosinophils (Bld) [#/Vol] 0.0 10*3/uL 0.0 - 0.5 10*3/uL [facility] Eosinophils/100 WBC (Bld) 1.0 % 0.0 - 6.0 % [facility] Erythrocyte distribution width (RBC) [Ratio] 13.2 % 11.5 - 15.0 % [facility] Hematocrit (Bld) [Volume fraction] 33.3 % Low 40.0 - 52.0 % [facility] Hemoglobin (Bld) [Mass/Vol] 11.8 g/dL Low 13.0 - 18.0 g/dL [facility] Immature granulocytes (Bld) [#/Vol] 0.0 10*3/uL NINF - 0.1 10*3/uL [facility] Immature granulocytes/100 WBC (Bld) 0.2 % 0.0 - 2.0 % [facility] Interpretation and review of laboratory results Abnormal [facility] IPF 3 [facility] Lymphocytes (Bld) [#/Vol] 1.6 10*3/uL 1.0 - 4.3 10*3/uL [facility] Lymphocytes/100 WBC (Bld) 39.1 % 15.0 - 45.0 % [facility] MCH (RBC) [Entitic mass] 32.0 pg 26.0 - 34.0 pg [facility] MCHC (RBC) [Mass/Vol] 35.4 % 30.5 - 36.0 % [facility] MCV (RBC) [Entitic vol] 90.2 fL 77.0 - 99.0 fL [facility] Monocytes (Bld) [#/Vol] 0.3 10*3/uL 0.0 - 0.9 10*3/uL [facility] Monocytes/100 WBC (Bld) 7.5 % 5.0 - 13.0 % [facility] Neutrophils (Bld) [#/Vol] 2.1 10*3/uL 1.8 - 7.5 10*3/uL [facility] Neutrophils/100 WBC (Bld) 51.7 % 38.0 - 82.0 % [facility] Nucleated RBC/100 WBC (Bld) [Ratio] 0.0 % [facility] Platelet mean volume (Bld) [Entitic vol] 9.8 fL 9.0 - 12.7 fL [facility] Platelets (Bld) [#/Vol] 52 10*3/uL Low 140 - 440 10*3/uL [facility] RBC (Bld) [#/Vol] 3.69 10*6/uL Low 4.40 - 5.9 0 10*6/uL [facility] WBC (Bld) [#/Vol] 4.1 10*3/uL 3.6 - 10.7 10*3/uL [facility] CBC WITH AUTO DIFFERENTIALon 01-17-2024 Basophils (Bld) [#/Vol] 0.0 10*3/uL Normal 0.0-0.2 [facility] Comment on above: Performed By: #### L [id number] ####Senior Telecommunications Technician: ARA WRIGHT ([phone])[address] Basophils/100 WBC (Bld) 0.5 % Normal 0.0-2.0 [facility] Comment on above: Performed By: #### L [id number] ####Senior Telecommunications Technician: ARA WRIGHT ([phone])[facility])[address] [place] [address] Eosinophils (Bld) [#/Vol] 0.0 10*3/uL Normal 0.0-0.5 [facility] Comment on above: Performed By: #### L [id number] ####Senior Telecommunications Technician: ARA WRIGHT ([phone])[facility])[address] [place] [address] Eosinophils/100 WBC (Bld) 1.0 % Normal 0.0-6.0 [facility] Comment on above: Performed By: #### L [id number] ####Senior Telecommunications Technician: ARA WRIGHT ([phone])[facility])[address] [place] [address] Erythrocyte distribution width (RBC) [Ratio] 13.2 % Normal 11.5-15.0 [facility] Comment on above: Performed By: #### L [id number] ####Senior Telecommunications Technician: ARA WRIGHT ([phone])[address] Hematocrit (Bld) [Volume fraction] 33.3 % Low 40.0-52.0 [facility] Comment on above: Performed By: #### L [id number] ####Senior Telecommunications Technician: ARA WRIGHT ([phone])[facility])[address] [place] [address] Hemoglobin (Bld) [Mass/Vol] 11.8 g/dL Low 13.0-18.0 [facility] Comment on above: Performed By: #### L [id number] ####Senior Telecommunications Technician: ARA WRIGHT ([phone])[address] IMMATURE GRANS % 0.2 % Normal 0.0-2.0 [facility] Comment on above: Performed By: #### L [id number] ####Senior Telecommunications Technician: ARA WRIGHT ([phone])[address] IMMATURE GRANS ABSOLUTE 0.0 10*3/uL Normal <0.1 [facility] Comment on above: Performed By: #### L [id number] ####Senior Telecommunications Technician: ARA WRIGHT ([phone])[address] IPF 3 Normal [facility] Comment on above: Performed By: #### L [id number] ####Senior Telecommunications Technician: ARA WRIGHT ([phone])[address] Lymphocytes (Bld) [#/Vol] 1.6 10*3/uL Normal 1.0-4.3 [facility] Comment on above: Performed By: #### L [id number] ####Senior Telecommunications Technician: ARA WRIGHT ([phone])[facility])[address] [place] [address] Lymphocytes/100 WBC (Bld) 39.1 % Normal 15.0-45.0 [facility] Comment on above: Performed By: #### L [id number] ####Senior Telecommunications Technician: ARA WRIGHT ([phone])[facility])[address] [place] [address] MCH (RBC) [Entitic mass] 32.0 pg Normal 26.0-34.0 [facility] Comment on above: Performed By: #### L [id number] ####Senior Telecommunications Technician: ARA WRIGHT ([phone])[facility])[address] [place] [address] MCHC 35.4 % Normal 30.5-36.0 [facility] Comment on above: Performed By: #### L [id number] ####Senior Telecommunications Technician: ARA WRIGHT ([phone])[facility])[address] [place] [address] MCV (RBC) [Entitic vol] 90.2 fL Normal 77.0-99.0 [facility] Comment on above: Performed By: #### L [id number] ####Senior Telecommunications Technician: ARA WRIGHT ([phone])[facility])[address] [place] [address] Monocytes (Bld) [#/Vol] 0.3 10*3/uL Normal 0.0-0.9 [facility] Comment on above: Performed By: #### L [id number] ####Senior Telecommunications Technician: ARA WRIGHT ([phone])[facility])[address] [place] [address] Monocytes/100 WBC (Bld) 7.5 % Normal 5.0-13.0 [facility] Comment on above: Performed By: #### L [id number] ####Senior Telecommunications Technician: ARA WRIGHT ([phone])[facility])[address] [place] [address] NEUTROPHILS ABSOLUTE 2.1 10*3/uL Normal 1.8-7.5 [facility] Comment on above: Performed By: #### L [id number] ####Senior Telecommunications Technician: ARA WRIGHT ([phone])[facility])[address] [place] [address] Neutrophils/100 WBC (Bld) 51.7 % Normal 38.0-82.0 [facility] Comment on above: Performed By: #### L [id number] ####Senior Telecommunications Technician: ARA WRIGHT ([phone])[facility] ([facility])[address] [place] [address] NRBC 0.0 /100 WBCs Normal 0.0-2.0 [facility] Comment on above: Performed By: #### L [id number] ####Senior Telecommunications Technician: ARA WRIGHT ([phone])[facility])[address] [place] [address] Platelet mean volume (Bld) [Entitic vol] 9.8 fL Normal 9.0-12.7 [facility] Comment on above: Performed By: #### L [id number] ####Senior Telecommunications Technician: ARA WRIGHT ([phone])[facility] ([facility])[address] [place] [address] [place] Platelets (Bld) [#/Vol] 52 10*3/uL Low 140-440 [facility] Comment on above: Performed By: #### L [id number] ####Senior Telecommunications Technician: ARA WRIGHT ([phone])[facility] ([facility])[address] [place] [address] RBC (Bld) [#/Vol] 3.69 10*6/uL Low 4.40-5.90 [facility] Comment on above: Performed By: #### L [id number] ####Senior Telecommunications Technician: ARA WRIGHT ([phone])[facility])[address] [place] [address] WBC (Bld) [#/Vol] 4.1 10*3/uL Normal 3.6-10.7 [facility] Comment on above: Performed By: #### L [id number] ####Senior Telecommunications Technician: AAR WRIGHT ([phone])[facility] ([facility])[address] [place] [address] COMPREHENSIVE METABOLIC PANE Peter 01-17-2024 Albumin [Mass/Vol] 3.9 g/dL Normal 3.5-5.0 [facility] Comment on above: Performed By: #### L [id number], LAB17 ####Senior Telecommunications Technician: ARA WRIGHT ([phone])[facility] ([facility])[address] [place] [address] ALP [Catalytic activity/Vol] 64 U/L Normal 38-126 [facility] Comment on above: Performed By: #### L AB103, LAB17 ####Senior Telecommunications Technician: ARA WRIGHT ([phone])[facility] ([facility])[address] [place] [address] ALT [Catalytic activity/Vol] 19 U/L Normal 0-49 [facility] Comment on above: Performed By: #### L AB103, LAB17 ####Senior Telecommunications Technician: ARA WRIGHT ([phone])[facility] ([facility])[address] [place] [address] Anion gap [Moles/Vol] 11 mmol/L Normal 3-13 [facility] Comment on above: Performed By: #### L AB103, LAB17 ####Senior Telecommunications Technician: ARA WRIGHT ([phone])[facility] ([facility])[address] [place] [address] AST [Catalytic activity/Vol] 33 U/L Normal 15-46 [facility] Comment on above: Performed By: #### L AB103, LAB17 ####Senior Telecommunications Technician: ARA WRIGHT ([phone])[facility] ([facility])[address] [place] [address] Bilirubin [Mass/Vol] 0.8 mg/dL Normal 0.2-1.3 [facility] Comment on above: Performed By: #### L AB103, LAB17 ####Senior Telecommunications Technician: ARA WRIGHT ([phone])[facility] [place] [address] [place] Calcium [Mass/Vol] 8.9 mg/dL Normal 8.4-10.4 [facility] Comment on above: Performed By: #### L AB103, LAB17 ####Senior Telecommunications Technician: ARA WRIGHT ([phone])[facility] ([facility])[address] [place] [address] [place] Chloride [Moles/Vol] 100 mmol/L Normal 98-107 [facility] Comment on above: Performed By: #### L AB103, LAB17 ####Senior Telecommunications Technician: ARA WRIGHT ([phone])[facility] ([facility])[address] [place] [address] CO2 [Moles/Vol] 22 mmol/L Normal 22-30 [facility] Comment on above: Performed By: #### L AB103, LAB17 ####Senior Telecommunications Technician: ARA WRIGHT ([phone])[facility] ([facility])[address] [place] [address] Creatinine [Mass/Vol] 0.79 mg/dL Normal 0.66-1.25 [facility] Comment on above: Performed By: #### L AB103, LAB17 ####Senior Telecommunications Technician: ARA WRIGHT ([phone])[facility])[address] [place] [address] GLOMERULAR FILTRATION RATE ML/MIN/1.73 SQ M.PREDICTED >90.0 Normal >60.0 [facility] Comment on above: Result Comment: Calc ulation based on the Chronic Kidney Disease Epidemiology Collaboration (CKD-EPI) equation refit without adjustment for race Performed By: #### L AB103, LAB17 ####Senior Telecommunications Technician: ARA WRIGHT ([phone])[facility] ([facility])[address] [place] [address] [place] Glucose [Mass/Vol] 111 mg/dL High 70-100 [facility] Comment on above: Performed By: #### L AB103, LAB17 ####Senior Telecommunications Technician: ARA [phone])[facility])[address] [place] [address] Potassium [Moles/Vol] 3.4 mmol/L Low 3.5-5.1 [facility] Comment on above: Performed By: #### L AB103, LAB17 ####Senior Telecommunications Technician: ARA WRIGHT ([phone])[facility] ([facility])[address] [place] [address] Protein [Mass/Vol] 6.8 g/dL Normal 6.3-8.2 [facility] Comment on above: Performed By: #### L AB103, LAB17 ####Senior Telecommunications Technician: ARA WRIGHT ([phone])[facility] ([facility])[address] [place] [address] Sodium [Moles/Vol] 134 mmol/L Low 135-145 [facility] Comment on above: Performed By: #### L AB103, LAB17 ####Senior Telecommunications Technician: ARA WRIGHT ([phone])[facility] ([facility])[address] [place] [address] Urea nitrogen [Mass/Vol] 12 mg/dL Normal 9-20 [facility] Comment on above: Performed By: #### L AB103, LAB17 ####Senior Telecommunications Technician: ARA WRIGHT ([phone])[facility])[address] [place] [address] Comprehensive metabolic 1998 panelon 01-17-2024 Albumin [Mass/Vol] 3.9 g/dL 3.5 - 5.0 g/dL [facility] ALP [Catalytic activity/Vol] 64 U/L 38 - 126 U/L [facility] ALT [Catalytic activity/Vol] 19 U/L 0 - 49 U/L [facility] Anion gap [Moles/Vol] 11 mmol/L 3 - 13 mmol/L [facility] AST [Catalytic activity/Vol] 33 U/L 15 - 46 U/L [facility] Bilirubin [Mass/Vol] 0.8 mg/dL 0.2 - 1 .3 mg/dL [facility] Calcium [Mass/Vol] 8.9 mg/dL 8.4 - 10. 4 mg/dL [facility] Chloride [Moles/Vol] 100 mmol/L 98 - 10 7 mmol/L [facility] CO2 [Moles/Vol] 22 mmol/L 22 - 30 mmol/L [facility] Creatinine [Mass/Vol] 0.79 mg/dL 0.66 - 1.25 mg/dL [facility] GFR/1.73 sq M.predicted MDRD (S/P/Bld) [Vol rate/Area] - PINF [facility] Comment on above: Calculation based on the Chronic Kidney Disease Epidemiology Collaboration (CKD-EPI) equation refit without adjustment for race Glucose [Mass/Vol] 111 mg/dL High 70 - 100 mg/dL [facility] Interpretation and review of laboratory results Abnormal [facility] Potassium [Moles/Vol] 3.4 mmol/L Low 3.5 - 5.1 mmol/L [facility] Protein [Mass/Vol] 6.8 g/dL 6.3 - 8.2 g/dL [facility] Sodium [Moles/Vol] 134 mmol/L Low 135 - 145 mmol/L [facility] Urea nitrogen [Mass/Vol] 12 mg/dL 9 - 20 mg/dL [facility] IDNon 01-17-2024 IDN Normal [facility] Laboratory - Chemistry and C hemistry - challengeon 01-17-2024 Magnesium [Mass/Vol] 1.3 mg/dL Low 1.6 - 2 .3 mg/dL [facility] MAGNESIUMon 01-17-2024 Magnesium [Mass/Vol] 1.3 mg/dL Low 1.6-2.3 [facility] Comment on above: Performed By: #### L AB103, LAB17 ####Senior Telecommunications Technician: ARA WRIGHT ([phone])[facility] ([address] Magnesium [Mass/Vol]on 01-16 Interpretation and review of laboratory results Abnormal [facility] Progress Noteon 01-17-2024 Progress Note Normal [facility] Progress Note Normal [facility] CBC W Auto Differential pane l (Bld)Ordered By: Rommel Card on 01-16-2024 Basophils (Bld) [#/Vol] 0.0 10*3/uL 0.0 - 0.2 10*3/uL [facility] Basophils/100 WBC (Bld) 0.3 % 0.0 - 2.0 % [facility] Eosinophils (Bld) [#/Vol] 0.0 10*3/uL 0.0 - 0.5 10*3/uL [facility] Eosinophils/100 WBC (Bld) 0.3 % 0.0 - 6.0 % [facility] Erythrocyte distribution width (RBC) [Ratio] 13.6 % 11.5 - 15.0 % [facility] Hematocrit (Bld) [Volume fraction] 33.2 % Low 40.0 - 52.0 % [facility] Hemoglobin (Bld) [Mass/Vol] 11.5 g/dL Low 13.0 - 18.0 g/dL [facility] Immature granulocytes (Bld) [#/Vol] 0.0 10*3/uL NINF - 0.1 10*3/uL [facility] Immature granulocytes/100 WBC (Bld) 0.3 % 0.0 - 2.0 % [facility] Interpretation and review of laboratory results Abnormal [facility] IPF 3 [facility] Lymphocytes (Bld) [#/Vol] 1.3 10*3/uL 1.0 - 4.3 10*3/uL [facility] Lymphocytes/100 WBC (Bld) 33.3 % 15.0 - 45.0 % [facility] MCH (RBC) [Entitic mass] 31.4 pg 26.0 - 34.0 pg [facility] MCHC (RBC) [Mass/Vol] 34.6 % 30.5 - 36.0 % [facility] MCV (RBC) [Entitic vol] 90.7 fL 77.0 - 99.0 fL [facility] Monocytes (Bld) [#/Vol] 0.3 10*3/uL 0.0 - 0.9 10*3/uL [facility] Monocytes/100 WBC (Bld) 7.0 % 5.0 - 13.0 % [facility] Neutrophils (Bld) [#/Vol] 2.3 10*3/uL 1.8 - 7.5 10*3/uL [facility] Neutrophils/100 WBC (Bld) 58.8 % 38.0 - 82.0 % [facility] Nucleated RBC/100 WBC (Bld) [Ratio] 0.0 % [facility] Platelet mean volume (Bld) [Entitic vol] 9.9 fL 9.0 - 12.7 fL [facility] Platelets (Bld) [#/Vol] 50 10*3/uL Low 140 - 440 10*3/uL [facility] RBC (Bld) [#/Vol] 3.66 10*6/uL Low 4.40 - 5.9 0 10*6/uL [facility] WBC (Bld) [#/Vol] 3.8 10*3/uL 3.6 - 10.7 10*3/uL [facility] CBC WITH AUTO DIFFERENTIALon 01-16-2024 Basophils (Bld) [#/Vol] 0.0 10*3/uL Normal 0.0-0.2 [facility] Comment on above: Performed By: #### L [id number] ####Senior Telecommunications Technician: ARA WRIGHT ([phone])[facility])[address] [place] [address] Basophils/100 WBC (Bld) 0.3 % Normal 0.0-2.0 [facility] Comment on above: Performed By: #### L [id number] ####Senior Telecommunications Technician: ARA WRIGHT ([phone])[facility])[address] [place] [address] Eosinophils (Bld) [#/Vol] 0.0 10*3/uL Normal 0.0-0.5 [facility] Comment on above: Performed By: #### L [id number] ####Senior Telecommunications Technician: ARA WRIGHT ([phone])[facility])[address] [place] [address] Eosinophils/100 WBC (Bld) 0.3 % Normal 0.0-6.0 [facility] Comment on above: Performed By: #### L [id number] ####Senior Telecommunications Technician: ARA WRIGHT ([phone])[facility])[address] [place] [address] Erythrocyte distribution width (RBC) [Ratio] 13.6 % Normal 11.5-15.0 [facility] Comment on above: Performed By: #### L [id number] ####Senior Telecommunications Technician: ARA [phone])[facility])[address] [place] [address] Hematocrit (Bld) [Volume fraction] 33.2 % Low 40.0-52.0 [facility] Comment on above: Performed By: #### L [id number] ####Senior Telecommunications Technician: ARA WRIGHT ([phone])[facility])[address] [place] [address] Hemoglobin (Bld) [Mass/Vol] 11.5 g/dL Low 13.0-18.0 [facility] Comment on above: Performed By: #### L [id number] ####Senior Telecommunications Technician: ARA WRIGHT ([phone])[facility])[address] [place] [address] IMMATURE GRANS % 0.3 % Normal 0.0-2.0 [facility] Comment on above: Performed By: #### L [id number] ####Senior Telecommunications Technician: ARA WRIGHT ([phone])[facility] ([facility])[address] [place] [address] IMMATURE GRANS ABSOLUTE 0.0 10*3/uL Normal <0.1 [facility] Comment on above: Performed By: #### L [id number] ####Senior Telecommunications Technician: ARA WRIGHT ([phone])[facility])[address] [place] [address] [place] IPF 3 Normal [facility] Comment on above: Performed By: #### L [id number] ####Senior Telecommunications Technician: ARA WRIGHT ([phone])[facility] ([facility])[address] [place] [address] [place] Lymphocytes (Bld) [#/Vol] 1.3 10*3/uL Normal 1.0-4.3 [facility] Comment on above: Performed By: #### L [id number] ####Senior Telecommunications Technician: ARA WRIGHT ([phone])[facility])[address] [place] [address] [place] Lymphocytes/100 WBC (Bld) 33.3 % Normal 15.0-45.0 [facility] Comment on above: Performed By: #### L [id number] ####Senior Telecommunications Technician: ARA WRIGHT ([phone])[facility])[address] [place] [address] MCH (RBC) [Entitic mass] 31.4 pg Normal 26.0-34.0 [facility] Comment on above: Performed By: #### L [id number] ####Senior Telecommunications Technician: ARA WRIGHT ([phone])[facility])[address] [place] [address] MCHC 34.6 % Normal 30.5-36.0 [facility] Comment on above: Performed By: #### L [id number] ####Senior Telecommunications Technician: ARA WRIGHT ([phone])[facility])[address] [place] [address] MCV (RBC) [Entitic vol] 90.7 fL Normal 77.0-99.0 [facility] Comment on above: Performed By: #### L [id number] ####Senior Telecommunications Technician: ARA WRIGHT ([phone])[facility])[address] [place] [address] Monocytes (Bld) [#/Vol] 0.3 10*3/uL Normal 0.0-0.9 [facility] Comment on above: Performed By: #### L [id number] ####Senior Telecommunications Technician: ARA WRIGHT ([phone])[facility])[address] [place] [address] Monocytes/100 WBC (Bld) 7.0 % Normal 5.0-13.0 [facility] Comment on above: Performed By: #### L [id number] ####Senior Telecommunications Technician: ARA WRIGHT ([phone])[facility])[address] [place] [address] NEUTROPHILS ABSOLUTE 2.3 10*3/uL Normal 1.8-7.5 [facility] Comment on above: Performed By: #### L [id number] ####Senior Telecommunications Technician: ARA WRIGHT ([phone])[facility] ([facility])[address] [place] [address] Neutrophils/100 WBC (Bld) 58.8 % Normal 38.0-82.0 [facility] Comment on above: Performed By: #### L [id number] ####Senior Telecommunications Technician: ARA WRIGHT ([phone])[facility] ([facility])[address] [place] [address] NRBC 0.0 /100 WBCs Normal 0.0-2.0 [facility] Comment on above: Performed By: #### L [id number] ####Senior Telecommunications Technician: ARA WRIGHT ([phone])[facility] ([facility])[address] [place] [address] Platelet mean volume (Bld) [Entitic vol] 9.9 fL Normal 9.0-12.7 [facility] Comment on above: Performed By: #### L [id number] ####Senior Telecommunications Technician: ARA WRIGHT ([phone])[facility] ([facility])[address] [place] [address] Platelets (Bld) [#/Vol] 50 10*3/uL Low 140-440 [facility] Comment on above: Performed By: #### L [id number] ####Senior Telecommunications Technician: ARA WRIGHT ([phone])[facility] ([facility])[address] [place] [address] RBC (Bld) [#/Vol] 3.66 10*6/uL Low 4.40-5.90 [facility] Comment on above: Performed By: #### L [id number] ####Senior Telecommunications Technician: ARA WRIGHT ([phone])[facility] ([facility])[address] [place] [address] [place] WBC (Bld) [#/Vol] 3.8 10*3/uL Normal 3.6-10.7 [facility] Comment on above: Performed By: #### L [id number] ####Senior Telecommunications Technician: ARA WRIGHT ([phone])[facility] ([facility])[address] [place] [address] COMPREHENSIVE METABOLIC PANE Peter 01-16-2024 Albumin [Mass/Vol] 4.3 g/dL Normal 3.5-5.0 [facility] Comment on above: Performed By: #### L 103, LAB17 ####Senior Telecommunications Technician: ARA WRIGHT ([phone])[facility] ([facility])[address] [place] [address] ALP [Catalytic activity/Vol] 74 U/L Normal 38-126 [facility] Comment on above: Performed By: #### L 103, LAB17 ####Senior Telecommunications Technician: ARA WRIGHT ([phone])[facility] ([facility])[address] [place] [address] ALT [Catalytic activity/Vol] 23 U/L Normal 0-49 [facility] Comment on above: Performed By: #### Popeye RODAS, LAB17 ####Senior Telecommunications Technician: ARA WRIGHT ([phone])[facility] ([facility])[address] [place] [address] Anion gap [Moles/Vol] 14 mmol/L High 3-13 [facility] Comment on above: Performed By: #### L ADRIANNA, LAB17 ####Senior Telecommunications Technician: ARA WRIGHT ([phone])[facility] ([facility])[address] [place] [address] AST [Catalytic activity/Vol] 47 U/L High 15-46 [facility] Comment on above: Performed By: #### L ADRIANNA, LAB17 ####Senior Telecommunications Technician: ARA WRIGHT ([phone])[facility] ([facility])[address] [place] [address] [place] Bilirubin [Mass/Vol] 1.6 mg/dL High 0.2-1.3 [facility] Comment on above: Performed By: #### L AB103, LAB17 ####Senior Telecommunications Technician: ARA WRIGHT ([phone])[facility] ([facility])[address] [place] [address] [place] Calcium [Mass/Vol] 8.6 mg/dL Normal 8.4-10.4 [facility] Comment on above: Performed By: #### L AB103, LAB17 ####Senior Telecommunications Technician: ARA WRIGHT ([phone])[facility])[address] [place] [address] Chloride [Moles/Vol] 106 mmol/L Normal 98-107 [facility] Comment on above: Performed By: #### L 103, LAB17 ####Senior Telecommunications Technician: ARA WRIGHT ([phone])[facility])[address] [place] [address] CO2 [Moles/Vol] 18 mmol/L Low 22-30 [facility] Comment on above: Performed By: #### Popeye RODAS, LAB17 ####Senior Telecommunications Technician: ARA WRIGHT ([phone])[facility])[address] [place] [address] Creatinine [Mass/Vol] 0.71 mg/dL Normal 0.66-1.25 [facility] Comment on above: Performed By: #### Popeye DERAS103, LAB17 ####Senior Telecommunications Technician: ARA WRIGHT ([phone])[facility])[address] [place] [address] GLOMERULAR FILTRATION RATE ML/MIN/1.73 SQ M.PREDICTED >90.0 Normal >60.0 [facility] Comment on above: Result Comment: Calc ulation based on the Chronic Kidney Disease Epidemiology Collaboration (CKD-EPI) equation refit without adjustment for race Performed By: #### L ADRIANNA, LAB17 ####Senior Telecommunications Technician: ARA WRIGHT ([phone])[facility] ([facility])[address] [place] [address] Glucose [Mass/Vol] 84 mg/dL Normal 70-100 [facility] Comment on above: Performed By: #### L AB103, LAB17 ####Senior Telecommunications Technician: ARA WRIGHT ([phone])[facility])[address] [place] [address] Potassium [Moles/Vol] 3.2 mmol/L Low 3.5-5.1 [facility] Comment on above: Performed By: #### L AB103, LAB17 ####Senior Telecommunications Technician: ARA WRIGHT ([phone])[facility] ([facility])[address] [place] [address] Protein [Mass/Vol] 7.4 g/dL Normal 6.3-8.2 [facility] Comment on above: Performed By: #### Popeye DERAS103, LAB17 ####Senior Telecommunications Technician: ARA WRIGHT ([phone])[facility] ([facility])[address] [place] [address] Sodium [Moles/Vol] 138 mmol/L Normal 135-145 [facility] Comment on above: Performed By: #### Popeye RODAS, LAB17 ####Senior Telecommunications Technician: ARA WRIGHT ([phone])[facility] ([facility])[address] [place] [address] Urea nitrogen [Mass/Vol] 11 mg/dL Normal 9-20 [facility] Comment on above: Performed By: #### Popeye RODAS, LAB17 ####Senior Telecommunications Technician: ARA WRIGHT ([phone])[facility] ([facility])[address] [place] [address] Comprehensive metabolic 1998 panelon 01-16-2024 Albumin [Mass/Vol] 4.3 g/dL 3.5 - 5.0 g/dL [facility] ALP [Catalytic activity/Vol] 74 U/L 38 - 126 U/L [facility] ALT [Catalytic activity/Vol] 23 U/L 0 - 49 U/L [facility] Anion gap [Moles/Vol] 14 mmol/L High 3 - 13 mmol/L [facility] AST [Catalytic activity/Vol] 47 U/L High 15 - 46 U/L [facility] Bilirubin [Mass/Vol] 1.6 mg/dL High 0.2 - 1 .3 mg/dL [facility] Calcium [Mass/Vol] 8.6 mg/dL 8.4 - 10. 4 mg/dL [facility] Chloride [Moles/Vol] 106 mmol/L 98 - 10 7 mmol/L [facility] CO2 [Moles/Vol] 18 mmol/L Low 22 - 30 mmol/L [facility] Creatinine [Mass/Vol] 0.71 mg/dL 0.66 - 1.25 mg/dL [facility] GFR/1.73 sq M.predicted MDRD (S/P/Bld) [Vol rate/Area] - PINF [facility] Comment on above: Calculation based on the Chronic Kidney Disease Epidemiology Collaboration (CKD-EPI) equation refit without adjustment for race Glucose [Mass/Vol] 84 mg/dL 70 - 100 mg/dL [facility] Interpretation and review of laboratory results Abnormal [facility] Potassium [Moles/Vol] 3.2 mmol/L Low 3.5 - 5.1 mmol/L [facility] Protein [Mass/Vol] 7.4 g/dL 6.3 - 8.2 g/dL [facility] Sodium [Moles/Vol] 138 mmol/L 135 - 145 mmol/L [facility] Urea nitrogen [Mass/Vol] 11 mg/dL 9 - 20 mg/dL [facility] Consulton 01-16-2024 Consult Normal [facility] IDNon 01-16-2024 IDN Normal [facility] Laboratory - Chemistry and C hemistry - challengeon 01-16-2024 Magnesium [Mass/Vol] 1.4 mg/dL Low 1.6 - 2 .3 mg/dL [facility] MAGNESIUMon 01-16-2024 Magnesium [Mass/Vol] 1.4 mg/dL Low 1.6-2.3 [facility] Comment on above: Performed By: #### L AB103, LAB17 ####Senior Telecommunications Technician: ARA WRIGHT ([phone])[address] Magnesium [Mass/Vol]on 01-15 Interpretation and review of laboratory results Abnormal [facility] Progress Noteon 01-16-2024 Progress Note Normal [facility] Progress Note Normal [facility] Progress Note Normal [facility] CBC W Auto Differential pane l (Bld)Ordered By: Warner Francisco on 01-15-2024 Basophils (Bld) [#/Vol] 0.0 10*3/uL 0.0 - 0.2 10*3/uL [facility] Basophils/100 WBC (Bld) 0.5 % 0.0 - 2.0 % [facility] Eosinophils (Bld) [#/Vol] 0.0 10*3/uL 0.0 - 0.5 10*3/uL [facility] Eosinophils/100 WBC (Bld) 0.4 % 0.0 - 6.0 % [facility] Erythrocyte distribution width (RBC) [Ratio] 13.6 % 11.5 - 15.0 % [facility] Hematocrit (Bld) [Volume fraction] 34.5 % Low 40.0 - 52.0 % [facility] Hemoglobin (Bld) [Mass/Vol] 12.7 g/dL Low 13.0 - 18.0 g/dL [facility] Immature granulocytes (Bld) [#/Vol] 0.0 10*3/uL NINF - 0.1 10*3/uL [facility] Immature granulocytes/100 WBC (Bld) 0.3 % 0.0 - 2.0 % [facility] Interpretation and review of laboratory results Abnormal [facility] Lymphocytes (Bld) [#/Vol] 1.5 10*3/uL 1.0 - 4.3 10*3/uL [facility] Lymphocytes/100 WBC (Bld) 19.8 % 15.0 - 45.0 % [facility] MCH (RBC) [Entitic mass] 33.2 pg 26.0 - 34.0 pg [facility] MCHC (RBC) [Mass/Vol] 36.8 % High 30.5 - 36.0 % [facility] MCV (RBC) [Entitic vol] 90.1 fL 77.0 - 99.0 fL [facility] Monocytes (Bld) [#/Vol] 0.2 10*3/uL 0.0 - 0.9 10*3/uL [facility] Monocytes/100 WBC (Bld) 2.4 % Low 5.0 - 13.0 % [facility] Neutrophils (Bld) [#/Vol] 5.7 10*3/uL 1.8 - 7.5 10*3/uL [facility] Neutrophils/100 WBC (Bld) 76.6 % 38.0 - 82.0 % [facility] Nucleated RBC/100 WBC (Bld) [Ratio] 0.0 % [facility] Platelet mean volume (Bld) [Entitic vol] 9.4 fL 9.0 - 12.7 fL [facility] Platelets (Bld) [#/Vol] 73 10*3/uL Low 140 - 440 10*3/uL [facility] RBC (Bld) [#/Vol] 3.83 10*6/uL Low 4.40 - 5.9 0 10*6/uL [facility] WBC (Bld) [#/Vol] 7.4 10*3/uL 3.6 - 10.7 10*3/uL [facility] CBC WITH AUTO DIFFERENTIALon 01-15-2024 Basophils (Bld) [#/Vol] 0.0 10*3/uL Normal 0.0-0.2 [facility] Comment on above: Performed By: #### L [id number] ####Senior Telecommunications Technician: ARA WRIGHT ([phone])[facility] ([facility])[address] [place] [address] Basophils/100 WBC (Bld) 0.5 % Normal 0.0-2.0 [facility] Comment on above: Performed By: #### L [id number] ####Senior Telecommunications Technician: ARA WRIGHT ([phone])[facility] ([facility])[address] [place] [address] [place] Eosinophils (Bld) [#/Vol] 0.0 10*3/uL Normal 0.0-0.5 [facility] Comment on above: Performed By: #### L [id number] ####Senior Telecommunications Technician: ARA WRIGHT ([phone])[facility] ([facility])[address] [place] [address] [place] Eosinophils/100 WBC (Bld) 0.4 % Normal 0.0-6.0 [facility] Comment on above: Performed By: #### L [id number] ####Senior Telecommunications Technician: ARA WRIGHT ([phone])[facility] ([facility])[address] [place] [address] Erythrocyte distribution width (RBC) [Ratio] 13.6 % Normal 11.5-15.0 [facility] Comment on above: Performed By: #### L [id number] ####Senior Telecommunications Technician: ARA WRIGHT ([phone])[facility] ([facility])[address] [place] [address] Hematocrit (Bld) [Volume fraction] 34.5 % Low 40.0-52.0 [facility] Comment on above: Performed By: #### L [id number] ####Senior Telecommunications Technician: ARA WRIGHT ([phone])[facility] ([facility])[address] [place] [address] Hemoglobin (Bld) [Mass/Vol] 12.7 g/dL Low 13.0-18.0 [facility] Comment on above: Performed By: #### L [id number] ####Senior Telecommunications Technician: ARA WRIGHT ([phone])[facility] ([facility])[address] [place] [address] IMMATURE GRANS % 0.3 % Normal 0.0-2.0 [facility] Comment on above: Performed By: #### L [id number] ####Senior Telecommunications Technician: ARA WRIGHT ([phone])[facility] ([facility])[address] [place] [address] IMMATURE GRANS ABSOLUTE 0.0 10*3/uL Normal <0.1 [facility] Comment on above: Performed By: #### L [id number] ####Senior Telecommunications Technician: ARA WRIGHT ([phone])[facility] ([facility])[address] [place] [address] Lymphocytes (Bld) [#/Vol] 1.5 10*3/uL Normal 1.0-4.3 [facility] Comment on above: Performed By: #### L [id number] ####Senior Telecommunications Technician: ARA WRIGHT ([phone])[facility] ([facility])[address] [place] [address] [place] Lymphocytes/100 WBC (Bld) 19.8 % Normal 15.0-45.0 [facility] Comment on above: Performed By: #### L [id number] ####Senior Telecommunications Technician: ARA WRIGHT ([phone])[facility] ([facility])[address] [place] [address] MCH (RBC) [Entitic mass] 33.2 pg Normal 26.0-34.0 [facility] Comment on above: Performed By: #### L [id number] ####Senior Telecommunications Technician: ARA WRIGHT ([phone])[facility] ([facility])[address] [place] [address] MCHC 36.8 % High 30.5-36.0 [facility] Comment on above: Performed By: #### L [id number] ####Senior Telecommunications Technician: ARA WRIGHT ([phone])[facility] ([facility])[address] [place] [address] MCV (RBC) [Entitic vol] 90.1 fL Normal 77.0-99.0 [facility] Comment on above: Performed By: #### L [id number] ####Senior Telecommunications Technician: ARA WRIGHT ([phone])[facility] ([facility])[address] [place] [address] Monocytes (Bld) [#/Vol] 0.2 10*3/uL Normal 0.0-0.9 [facility] Comment on above: Performed By: #### L [id number] ####Senior Telecommunications Technician: ARA WRIGHT ([phone])[facility] ([facility])[address] [place] [address] [place] Monocytes/100 WBC (Bld) 2.4 % Low 5.0-13.0 [facility] Comment on above: Performed By: #### L [id number] ####Senior Telecommunications Technician: ARA WRIGHT ([phone])[facility] ([facility])[address] [place] [address] NEUTROPHILS ABSOLUTE 5.7 10*3/uL Normal 1.8-7.5 [facility] Comment on above: Performed By: #### L [id number] ####Senior Telecommunications Technician: ARA WRIGHT ([phone])[facility] ([facility])[address] [place] [address] [place] Neutrophils/100 WBC (Bld) 76.6 % Normal 38.0-82.0 [facility] Comment on above: Performed By: #### L [id number] ####Senior Telecommunications Technician: ARA WRIGHT ([phone])[facility] ([facility])[address] [place] [address] [place] NRBC 0.0 /100 WBCs Normal 0.0-2.0 [facility] Comment on above: Performed By: #### L [id number] ####Senior Telecommunications Technician: ARA WRIGHT ([phone])[facility] ([facility])[address] [place] [address] [place] Platelet mean volume (Bld) [Entitic vol] 9.4 fL Normal 9.0-12.7 [facility] Comment on above: Performed By: #### L [id number] ####Senior Telecommunications Technician: ARA WRIGHT ([phone])[facility] ([facility])[address] [place] [address] [place] Platelets (Bld) [#/Vol] 73 10*3/uL Low 140-440 [facility] Comment on above: Performed By: #### L [id number] ####Senior Telecommunications Technician: ARA WRIGHT ([phone])[facility] ([facility])[address] [place] [address] [place] RBC (Bld) [#/Vol] 3.83 10*6/uL Low 4.40-5.90 [facility] Comment on above: Performed By: #### L [id number] ####Senior Telecommunications Technician: ARA WRIGHT ([phone])[facility] ([facility])[address] [place] [address] [place] WBC (Bld) [#/Vol] 7.4 10*3/uL Normal 3.6-10.7 [facility] Comment on above: Performed By: #### L [id number] ####Senior Telecommunications Technician: ARA WRIGHT ([phone])[facility]ITAL[facility]avia DUNCAN R[facility]TMAN (SWRLAB)[address] COMPLETE URINALYSISon 2023 AMORPHOUS URATES (#/HPF) IN URINE Few Abnormal Negative [facility] Comment on above: Performed By: #### L [id number] ####Senior Telecommunications Technician: ARA WRIGHT ([phone])[facility]ITALA [place] (SWRLAB)[address] [place] [address] [place] BACTERIA (#/HPF) IN URINE Few Abnormal Negative [facility] Comment on above: Performed By: #### L [id number] ####Senior Telecommunications Technician: ARA WRIGHT ([phone])[facility]ITALA [place] (SWRLAB)[address] [place] [address] [place] BILIRUBIN, TOTAL PRESENCE IN URINE Negative Normal Negative [facility] Comment on above: Performed By: #### L [id number] ####Senior Telecommunications Technician: ARA WRIGHT ([phone])[facility]ITALA [place] (SWRLAB)[address] [place] [address] Clarity (U) Clear Normal Clear [facility] Comment on above: Performed By: #### L [id number] ####Senior Telecommunications Technician: ARA WRIGHT ([phone])[facility]ITALA [place] (SWRLAB)[address] [place] [place] [address] Color (U) Light Yellow Normal Lt. Yellow [facility] Comment on above: Performed By: #### L [id number] ####Senior Telecommunications Technician: ARA WRIGHT ([phone])[facility] [place] [facility] (SWRLAB)[address] [place] [address] [place] GLUCOSE (MG/DL) IN URINE Normal Normal Normal (<70) [facility] Comment on above: Performed By: #### L [id number] ####Senior Telecommunications Technician: ARA WRIGHT ([phone])[facility]ITAL[facility] [place] (SWRLAB)[address] [place] [address] [place] HEMOGLOBIN PRESENCE IN URINE Negative Normal Negative [facility] Comment on above: Performed By: #### L [id number] ####Senior Telecommunications Technician: ARA WRIGHT ([phone])[facility] [place] (SWRL[place])[address] [place] [address] [place] Ketones Ql (U) Trace Abnormal Negative [facility] Comment on above: Performed By: #### L [id number] ####Senior Telecommunications Technician: ARA WRIGHT ([phone])[facility] [place] (SWRL[place])[address] [place] [address] LEUKOCYTE ESTERASE PRESENCE IN URINE BY TEST STRIP Negative Normal Negative [facility] Comment on above: Performed By: #### L [id number] ####Senior Telecommunications Technician: ARA WRIGHT ([phone])[facility] [place] [facility] (SWRL[place])[address] [place] [address] NITRITE PRESENCE IN URINE Negative Normal Negative [facility] Comment on above: Performed By: #### L [id number] ####Senior Telecommunications Technician: ARA WRIGHT ([phone])[facility] [place] (SWRL[facility])[address] [place] [address] [place] pH (U) 5.5 [pH] Normal 5.0-8.0 [facility] Comment on above: Performed By: #### L [id number] ####Senior Telecommunications Technician: ARA WRIGHT ([phone])[facility] [place] [facility] (SWRL[facility])[address] [place] [address] [place] Protein (U) [Mass/Vol] 20 mg/dL Abnormal Negative [facility] Comment on above: Performed By: #### L [id number] ####Senior Telecommunications Technician: ARA WRIGHT ([phone])[facility] [place] (SW[place])[address] [place] [address] [place] RBC (#/HPF) IN URINE SEDIMENT Negative Normal 0-2 [facility] Comment on above: Performed By: #### L [id number] ####Senior Telecommunications Technician: ARA WRIGHT ([phone])[place] (SWRLAB)[address] Specific gravity (U) [Rel density] 1.014 Normal 1.005-1.030 [facility] Comment on above: Performed By: #### L [id number] ####Senior Telecommunications Technician: ARA WRIGHT ([phone])[facility]ITAL[facility] [place] (SWRLAB)[address] [place] [address] Specimen volume (U) 12 mL Normal [facility] Comment on above: Performed By: #### L [id number] ####Senior Telecommunications Technician: ARA WRIGHT ([phone])[facility] [place] (SWRLAB)[address] [place] [address] SQUAMOUS EPITHELIAL CELLS (#/HPF) IN URINE SEDIMENT Negative Normal 3-5 [facility] Comment on above: Performed By: #### L [id number] ####Senior Telecommunications Technician: ARA WRIGHT ([phone])[facility]ITAL[facility] [place] (SWRLAB)[address] [place] [address] [place] UROBILINOGEN (MG/DL) IN URINE Normal Normal Normal (0-1) [facility] Comment on above: Performed By: #### L [id number] ####Senior Telecommunications Technician: ARA WRIGHT ([phone])[facility]ITAL[facility] [place] (SWRLAB)[address] [place] [address] [place] WBC (LEUKOCYTE) (#/HPF) IN URINE SEDIMENT Negative Normal 0-5 [facility] Comment on above: Performed By: #### L [id number] ####Senior Telecommunications Technician: ARA WRIGHT ([phone])[facility]ITAL[facility] [place] (SWRLAB)[address] [place] [address] COMPREHENSIVE METABOLIC PANE Peter 01-15-2024 Albumin [Mass/Vol] 4.7 g/dL Normal 3.5-5.0 [facility] Comment on above: Performed By: #### Popeye DERAS99, LAB17 ####Senior Telecommunications Technician: ARA WRIGHT ([phone])[facility]ITALOct[facility] [place] (SWRL[place])[address] ALP [Catalytic activity/Vol] 86 U/L Normal 38-126 [facility] Comment on above: Performed By: #### L AB99, LAB17 ####Senior Telecommunications Technician: ARA WRIGHT ([phone])[facility] [place] (SW[place])[address] ALT [Catalytic activity/Vol] 29 U/L Normal 0-49 [facility] Comment on above: Performed By: #### Popeye DERAS99, LAB17 ####Senior Telecommunications Technician: ARA WRIGHT ([phone])[facility] [place] (SWRL[place])[address] Anion gap [Moles/Vol] 14 mmol/L High 3-13 [facility] Comment on above: Performed By: #### Popeye DERAS99, LAB17 ####Senior Telecommunications Technician: ARA WRIGHT ([phone])[facility]ITAL[facility] [place] (SWRL[place])[address] AST [Catalytic activity/Vol] 58 U/L High 15-46 [facility] Comment on above: Performed By: #### L AB99, LAB17 ####Senior Telecommunications Technician: ARA WRIGHT ([phone])[facility]ITALOct[facility] [place] (SWRLAB)[address] [place] [address] [place] Bilirubin [Mass/Vol] 1.8 mg/dL High 0.2-1.3 [facility] Comment on above: Performed By: #### L AB99, LAB17 ####Senior Telecommunications Technician: ARA WRIGHT ([phone])[facility]ITALOct[facility] [place] (SWRLAB)[address] [place] [address] [place] Calcium [Mass/Vol] 9.6 mg/dL Normal 8.4-10.4 [facility] Comment on above: Performed By: #### Popeye LASSITER, LAB17 ####Senior Telecommunications Technician: ARA WRIGHT ([phone])[facility]ITALOct[facility] [place] (SWRLAB)[address] [place] [address] [place] Chloride [Moles/Vol] 109 mmol/L High 98-107 [facility] Comment on above: Performed By: #### Popeye LASSITER, LAB17 ####Senior Telecommunications Technician: ARA WRIGHT ([phone])[facility]ITALOct[facility] [place] (SWRLAB)[address] [place] [address] [place] CO2 [Moles/Vol] 17 mmol/L Low 22-30 [facility] Comment on above: Performed By: #### Popeye LASSITER, LAB17 ####Senior Telecommunications Technician: ARA WRIGHT ([phone])[facility]ITALOct[facility] [place] (SWRLAB)[address] [place] [address] [place] Creatinine [Mass/Vol] 0.90 mg/dL Normal 0.66-1.25 [facility] Comment on above: Performed By: #### Popeye LASSITER, LAB17 ####Senior Telecommunications Technician: ARA WRIGHT ([phone])[facility]ITALOct[facility] [place] (SWRLAB)[address] [place] [address] GLOMERULAR FILTRATION RATE ML/MIN/1.73 SQ M.PREDICTED >90.0 Normal >60.0 [facility] Comment on above: Result Comment: Calc ulation based on the Chronic Kidney Disease Epidemiology Collaboration (CKD-EPI) equation refit without adjustment for race Performed By: #### L SRAVANI, LAB17 ####Senior Telecommunications Technician: ARA WRIGHT ([phone])[facility]ITALOct[facility] [place] (SWRLAB)[address] [place] [address] [place] Glucose [Mass/Vol] 133 mg/dL High 70-100 [facility] Comment on above: Performed By: #### L SRAVANI, LAB17 ####Senior Telecommunications Technician: ARA WRIGHT ([phone])[facility]ITALOct[facility] [place] (SWRLAB)[address] Potassium [Moles/Vol] 4.0 mmol/L Normal 3.5-5.1 [facility] Comment on above: Performed By: #### L AB99, LAB17 ####Senior Telecommunications Technician: ARA WRIGHT ([phone])[facility]ITALOct[facility] [place] (SWRLAB)[address] Protein [Mass/Vol] 8.1 g/dL Normal 6.3-8.2 [facility] Comment on above: Performed By: #### L AB99, LAB17 ####Senior Telecommunications Technician: ARA WRIGHT ([phone])[facility]ITALOct[facility] [place] (SWRLAB)[address] Sodium [Moles/Vol] 140 mmol/L Normal 135-145 [facility] Comment on above: Performed By: #### L AB99, LAB17 ####Senior Telecommunications Technician: ARA WRIGHT ([phone])[facility]ITALOct[facility] [place] (SWRLAB)[address] Urea nitrogen [Mass/Vol] 11 mg/dL Normal 9-20 [facility] Comment on above: Performed By: #### L AB99, LAB17 ####Senior Telecommunications Technician: ARA WRIGHT ([id number])[facility]ITALOct[facility] [place] (SWRLAB)[address] Comprehensive metabolic 1998 panelon 01-15-2024 Albumin [Mass/Vol] 4.7 g/dL 3.5 - 5.0 g/dL [facility] ALP [Catalytic activity/Vol] 86 U/L 38 - 126 U/L [facility] ALT [Catalytic activity/Vol] 29 U/L 0 - 49 U/L [facility] Anion gap [Moles/Vol] 14 mmol/L High 3 - 13 mmol/L [facility] AST [Catalytic activity/Vol] 58 U/L High 15 - 46 U/L [facility] Bilirubin [Mass/Vol] 1.8 mg/dL High 0.2 - 1 .3 mg/dL [facility] Calcium [Mass/Vol] 9.6 mg/dL 8.4 - 10. 4 mg/dL [facility] Chloride [Moles/Vol] 109 mmol/L High 98 - 10 7 mmol/L [facility] CO2 [Moles/Vol] 17 mmol/L Low 22 - 30 mmol/L [facility] Creatinine [Mass/Vol] 0.90 mg/dL 0.66 - 1.25 mg/dL [facility] GFR/1.73 sq M.predicted MDRD (S/P/Bld) [Vol rate/Area] - PINF [facility] Comment on above: Calculation based on the Chronic Kidney Disease Epidemiology Collaboration (CKD-EPI) equation refit without adjustment for race Glucose [Mass/Vol] 133 mg/dL High 70 - 100 mg/dL [facility] Interpretation and review of laboratory results Abnormal [facility] Potassium [Moles/Vol] 4.0 mmol/L 3.5 - 5.1 mmol/L [facility] Protein [Mass/Vol] 8.1 g/dL 6.3 - 8.2 g/dL [facility] Sodium [Moles/Vol] 140 mmol/L 135 - 145 mmol/L [facility] Urea nitrogen [Mass/Vol] 11 mg/dL 9 - 20 mg/dL [facility] DRUGS OF ABUSEon 01-15-2024 AMPHETAMINE SCREEN Negative Normal [facility] Comment on above: Performed By: #### L [id number] ####Senior Telecommunications Technician: ARA WRIGHT ([phone])[facility] [place] (TruliRLAB)[address] [place] [address] BARBITURATES SCREEN Negative Normal [facility] Comment on above: Performed By: #### L [id number] ####Senior Telecommunications Technician: ARA WRIGHT ([phone])[facility] [place] (SWRLAB)[address] [place] [address] BENZODIAZEPINE SCREEN Negative Normal [facility] Comment on above: Performed By: #### L [id number] ####Senior Telecommunications Technician: ARA WRIGHT ([phone])[facility]ITALDAKOTA [facility] (SWRLAB)[address] COCAINE METAB. SCREEN Negative Normal [facility] Comment on above: Performed By: #### L [id number] ####Senior Telecommunications Technician: ARA WRIGHT ([phone])[facility] [place] [facility] (SWRL[place])[address] METHADONE SCREEN Negative Normal [facility] Comment on above: Performed By: #### L [id number] ####Senior Telecommunications Technician: ARA WRIGHT ([phone])[facility] [place] (SWRL[place])[address] OPIATES SCREEN Positive Normal [facility] Comment on above: Performed By: #### L [id number] ####Senior Telecommunications Technician: ARA WRIGHT ([phone])[facility] [place] [facility] (SWRL[facility])[address] [place] [address] OXYCODONE SCREEN Negative Normal [facility] Comment on above: Performed By: #### L [id number] ####Senior Telecommunications Technician: ARA WRIGHT ([phone])[facility] [place] [facility] (SWRLAB)[address] [place] [address] PHENCYCLIDINE SCREEN Negative Normal [facility] Comment on above: Result Comment: CLAIRE [...] under separate order. Performed By: #### L [id number] ####Senior Telecommunications Technician: ARA WRIGHT ([phone])[facility] [place] (SWRLAB)[address] ED Nursing Noteon 01-15-2024 ED Nursing Note Phoned [facility]. Hand off report given to MEGGAN Laurent. Nurse requesting that patient have another dose of ativan prior to leaving. Physician informed. Pratibha Okeefe RN 01/15/24 1647 Normal [facility] ED Nursing Note RN spoke Christie per patient request and asked her to bring him glasses and his cane, Christie acknowledged and thanked RN for the call. Aubree Ratliff RN 01/15/24 1322 Normal [facility] ED Nursing Note Patient declined any thing to eat or drink at this time. Call light within reach Pratibha Okeefe RN 01/15/24 1241 Normal [facility] ED Nursing Note Normal [facility] ED Provider Noteon ED Provider Note Normal [facility] ETHANOLon 01-15-2024 ETHANOL IN SER/PLAS <0.010 Normal 0.000-0.010 [facility] Comment on above: Result Comment: CLAIRE Rivera COMMENTS:NOTE: This result is for medical treatment only. Analysis performed using non-forensic procedures. Performed By: #### L AB46 ####Senior Telecommunications Technician: ARA WRIGHT ([phone])[facility] (RLAB)[address] [place] [address] Ethanol (Bld) [Mass/Vol]on 0 01-15-2024 Ethanol [Mass/Vol] g/dL 0.000 - 0.010 g/dL [facility] Interpretation and review of laboratory results Normal [facility] IDNon 01-15-2024 IDN Normal [facility] LIPASEon 01-15-2024 Lipase [Catalytic activity/Vol] 124 U/L Normal 23-300 [facility] Comment on above: Performed By: #### L AB99, LAB17 ####Senior Telecommunications Technician: ARA WRIGHT ([phone])[facility] ([facility])[address] [place] [address] Laboratory - Chemistry and C hemistry - challengeon 01-15-2024 Lipase [Catalytic activity/Vol] 124 U/L 23 - 300 U/L [facility] - Drug toxicology Ordered By: Perla Garcia on 01-15-2024 Amphetamines Screen method >1000 ng/mL Ql (U) Negative [facility] Barbiturates Screen method >200 ng/mL Ql (U) Negative [facility] Benzodiazepines Ql (U) Negative [facility] Methadone Screen Ql (U) Negative [facility] Opiates Screen Ql (U) Positive [facility] oxyCODONE Ql (U) Negative [facility] Phencyclidine Ql (U) Negative [facility] Laboratory - Microbiology an d Antimicrobial susceptibilityon 01-15-2024 SARS-CoV-2 (COVID-19) Ag IA.rapid Ql (Resp) Positive Abnormal Negative [facility] Comment on above: This test detects moreno th viable and non-viable virus. Positive results do not differentiate between SARS-CoV and SARS-CoV-2. If differentiation of specific SARS is needed, additional testing with a NAAT-based method is required. Method: Lateral flow immunoassay. Fact sheets for healthcare providers and patients can be found at the following sites: https://www.fda.gov/media/341187/download https://www.fda.gov/media/612437/download Lipase [Catalytic activity/V ol]on 01-15-2024 Interpretation and review of laboratory results Normal [facility] No Panel InformationOrdered By: Perla Garcia on 01-15-2024 COCAINE METAB. SCREEN Negative [facility] The expected value f or all [...] is needed, request confirmation under separate order. [facility] No Panel Informationon 01-14 [facility] SARS-COV-2 ANTIGENon 024 SARS-COV-2 ANTIGEN Normal [facility] Comment on above: Performed By: #### L [id number] ####Senior Telecommunications Technician: ARA WRIGHT ([phone])[facility] HOSPITALDAKOTAMATTEAWAN STATE HOSPITAL FOR THE CRIMINALLY INSANEMARILYN (SWRLAB)[address] [place] [address] SARS-CoV-2 (COVID-19) Ag IA. rapid Ql (Resp)on 01-15-2024 Interpretation and review of laboratory results Abnormal [facility] Urinalysis complete panel (U )on 01-15-2024 Amorphous Urates, Urine Few Abnormal Negative /HPF [facility] Bacteria LM.HPF (Urine sed) [#/Area] Few Abnormal Negative /HPF [facility] Bilirubin Ql (U) Negative Negative mg/dL [facility] Clarity (U) Clear Clear [facility] Color (U) Light Yellow Lt. Yellow [facility] Epithelial cells.squamous LM.HPF (Urine sed) [#/Area] Negative [facility] Glucose Ql (U) Normal Normal (<70) mg/dL [facility] Hemoglobin Ql (U) Negative Negative mg/dL [facility] Interpretation and review of laboratory results Abnormal [facility] Ketones (U) [Mass/Vol] Trace Abnormal Negat zenia mg/dL [facility] Leukocyte esterase Test strip Ql (U) Negative Negative Emma/uL [facility] Nitrite Ql (U) Negative Negative [facility] pH (U) 5.5 [pH] 5.0 - 8.0 pH [facility] Protein (U) [Mass/Vol] 20 mg/dL Abnormal Negative [facility] RBC LM.HPF (Urine sed) [#/Area] Negative [facility] Specific gravity (U) [Rel density] 1.014 1.005 - 1.030 [facility] Urobilinogen (U) [Mass/Vol] Normal Normal (0-1) mg/dL [facility] Volume, Urine 12 mL [facility] WBC LM.HPF (Urine sed) [#/Area] Negative [facility] CNPNon 12-29-2023 CNPN Telephone (GSTNOR) ----- WOODY NI ([id number]) 1960 M T Date Time Provider Department [...] Status:Closed by SIMIN BENJAMIN on 12/29/23 Normal [facility] A1AT SerPl-mCncon 12-25-2023 Alpha 1 antitrypsin [Mass/Vol] 147 mg/dL Normal 90-200 [facility] Comment on above: Order Comment: Speci radha Type: BLOOD SPECIMEN Ordering Facility: [facility] Address: [address] [place] [address] Performed By: #### 2 276-4, 2064-4, 1825-9, 3040-3 #### [facility] CLIA [id number] [address] [place] [address] [place] JONH BY IFA WITH REFLEXon Nuclear Ab Ql (S) Negative Normal Negative [facility] Comment on above: Order Comment: Kel garcia Type: BLOOD SPECIMEN Ordering Facility: [facility] Address: [facility], [place] [address] Result Comment: Anti -nuclear antibody test is used as an aid in diagnosis of systemic autoimmune diseases. Where positive and clinically warranted, follow-up using disease-specific testing is recommended. Low positive titers are not uncommon with advanced age, certain chronic infections, and malignancies among others. Test methodology: Indirect fluorescence immunoassay (IFA) using HEp-2 cells. Performed By: #### P LATF4 #### [facility] CLIA [id number] [address] [place] [address] [place] Ammonia Plas-sCncon 12-25-19 24 Ammonia (P) [Moles/Vol] 17 umol/L Normal 16-60 [facility] Comment on above: Order Comment: Speci men Type: BLOOD SPECIMEN Ordering Facility: [facility] Address: [facility], [place] [address] Performed By: #### P LATF4 #### [facility] CLIA [id number] [address] [place] [address] [place] CBC W Auto Differential pane l (Bld)on 12-25-2023 Basophils (Bld) [#/Vol] 0.04 10*3/uL Normal <0.11 [facility] Comment on above: Order Comment: Speci men Type: BLOOD SPECIMEN Ordering Facility: [facility] Address: [address] [place] [address] Performed By: #### 5 7021-8 #### [facility] CLIA [id number] [address] [place] [address] [place] Basophils/100 WBC (Bld) 0.4 % Normal [facility] Comment on above: Order Comment: Speci men Type: BLOOD SPECIMEN Ordering Facility: [facility] Address: [address] [place] [address] Performed By: #### 5 7021-8 #### [facility] CLIA [id number] [address] [place] [address] [place] Differential cell count method Nom (Bld) Auto Normal [facility] Comment on above: Order Comment: Speci men Type: BLOOD SPECIMEN Ordering Facility: [facility] Address: [address] [place] [address] Performed By: #### 5 7021-8 #### [facility] CLIA [id number] [address] [place] [address] [place] Eosinophils (Bld) [#/Vol] 0.04 10*3/uL Normal <0.46 [facility] Comment on above: Order Comment: Speci men Type: BLOOD SPECIMEN Ordering Facility: [facility] Address: [address] [place] [address] Performed By: #### 5 7021-8 #### [facility] CLIA [id number] [address] [place] [address] [place] Eosinophils/100 WBC (Bld) 0.4 % Normal [facility] Comment on above: Order Comment: Speci men Type: BLOOD SPECIMEN Ordering Facility: [facility] Address: [address] [place] [address] Performed By: #### 5 7021-8 #### [facility] CLIA [id number] [address] [place] [address] [place] Erythrocyte distribution width (RBC) [Ratio] 12.4 % Normal 11.5-15.0 [facility] Comment on above: Order Comment: Speci men Type: BLOOD SPECIMEN Ordering Facility: [facility] Address: [address] [place] [address] Performed By: #### 5 7021-8 #### [facility] CLIA [id number] [address] [place] [address] [place] Hematocrit (Bld) [Volume fraction] 39.0 % Normal 39.0-51.0 [facility] Comment on above: Order Comment: Speci men Type: BLOOD SPECIMEN Ordering Facility: [facility] Address: [address] [place] [address] Performed By: #### 5 7021-8 #### [facility] CLIA [id number] [address] [place] [address] [place] Hemoglobin (Bld) [Mass/Vol] 13.5 g/dL Normal 13.0-17.0 [facility] Comment on above: Order Comment: Speci men Type: BLOOD SPECIMEN Ordering Facility: [facility] Address: [address] [place] [address] Performed By: #### 5 7021-8 #### [facility] CLIA [id number] [address] [place] [address] [place] Immature granulocytes (Bld) [#/Vol] 0.10 10*3/uL High <0.10 [facility] Comment on above: Order Comment: Speci men Type: BLOOD SPECIMEN Ordering Facility: [facility] Address: [address] [place] [address] Performed By: #### 5 7021-8 #### [facility] CLIA [id number] [address] [place] [address] [place] Immature granulocytes/100 WBC (Bld) 1.0 % Normal [facility] Comment on above: Order Comment: Speci men Type: BLOOD SPECIMEN Ordering Facility: [facility] Address: [address] [place] [address] Performed By: #### 5 7021-8 #### [facility] CLIA [id number] [address] [place] [address] [place] Lymphocytes (Bld) [#/Vol] 2.60 10*3/uL Normal 1.00-4.00 [facility] Comment on above: Order Comment: Speci men Type: BLOOD SPECIMEN Ordering Facility: [facility] Address: [address] [place] [address] Performed By: #### 5 7021-8 #### [facility] CLIA [id number] [address] [place] [address] [place] Lymphocytes/100 WBC (Bld) 25.2 % Normal [facility] Comment on above: Order Comment: Speci men Type: BLOOD SPECIMEN Ordering Facility: [facility] Address: [address] [place] [address] Performed By: #### 5 7021-8 #### [facility] CLIA [id number] [address] [place] [address] [place] MCH (RBC) [Entitic mass] 32.0 pg Normal 26.0-34.0 [facility] Comment on above: Order Comment: Speci men Type: BLOOD SPECIMEN Ordering Facility: [facility] Address: [address] [place] [address] Performed By: #### 5 7021-8 #### [facility] CLIA [id number] [address] [place] [address] [place] MCHC (RBC) [Mass/Vol] 34.6 g/dL Normal 30.5-36.0 [facility] Comment on above: Order Comment: Speci men Type: BLOOD SPECIMEN Ordering Facility: [facility] Address: [address] [place] [address] Performed By: #### 5 7021-8 #### [facility] CLIA [id number] [address] [place] [address] [place] MCV (RBC) [Entitic vol] 92.4 fL Normal 80.0-100.0 [facility] Comment on above: Order Comment: Speci men Type: BLOOD SPECIMEN Ordering Facility: [facility] Address: [address] [place] [address] Performed By: #### 5 7021-8 #### [facility] CLIA [id number] [address] [place] [address] [place] Monocytes (Bld) [#/Vol] 0.46 10*3/uL Normal <0.87 [facility] Comment on above: Order Comment: Speci men Type: BLOOD SPECIMEN Ordering Facility: [facility] Address: [address] [place] [address] Performed By: #### 5 7021-8 #### [facility] CLIA [id number] [address] [place] [address] [place] Monocytes/100 WBC (Bld) 4.5 % Normal [facility] Comment on above: Order Comment: Speci men Type: BLOOD SPECIMEN Ordering Facility: [facility] Address: [address] [place] [address] Performed By: #### 5 7021-8 #### [facility] CLIA [id number] [address] [place] [address] [place] Neutrophils (Bld) [#/Vol] 7.09 10*3/uL Normal 1.45-7.50 [facility] Comment on above: Order Comment: Speci men Type: BLOOD SPECIMEN Ordering Facility: [facility] Address: [address] [place] [address] Performed By: #### 5 7021-8 #### [facility] CLIA [id number] [address] [place] [address] [place] Neutrophils/100 WBC (Bld) 68.5 % Normal [facility] Comment on above: Order Comment: Speci men Type: BLOOD SPECIMEN Ordering Facility: [facility] Address: [address] [place] [address] Performed By: #### 5 7021-8 #### [facility] CLIA [id number] [address] [place] [address] [place] Nucleated RBC (Bld) [#/Vol] 10*3/uL Normal <0.01 [facility] Comment on above: Order Comment: Speci men Type: BLOOD SPECIMEN Ordering Facility: [facility] Address: [address] [place] [address] Performed By: #### 5 7021-8 #### [facility] CLIA [id number] [address] [place] [address] [place] Nucleated RBC/100 WBC (Bld) [Ratio] 0.0 /100 WBC Normal [facility] Comment on above: Order Comment: Speci men Type: BLOOD SPECIMEN Ordering Facility: [facility] Address: [address] [place] [address] Performed By: #### 5 7021-8 #### [facility] CLIA [id number] [address] [place] [address] [place] Platelet mean volume (Bld) [Entitic vol] 8.7 fL Low 9.0-12.7 [facility] Comment on above: Order Comment: Speci men Type: BLOOD SPECIMEN Ordering Facility: [facility] Address: [address] [place] [address] Performed By: #### 5 7021-8 #### [facility] CLIA [id number] [address] [place] [address] [place] Platelets (Bld) [#/Vol] 153 10*3/uL Normal 150-400 [facility] Comment on above: Order Comment: Speci men Type: BLOOD SPECIMEN Ordering Facility: [facility] Address: [address] [place] [address] Performed By: #### 5 7021-8 #### [facility] CLIA [id number] [address] [place] [address] [place] RBC (Bld) [#/Vol] 4.22 10*6/uL Normal 4.20-6.00 [facility] Comment on above: Order Comment: Speci men Type: BLOOD SPECIMEN Ordering Facility: [facility] Address: [address] [place] [address] Performed By: #### 5 7021-8 #### [facility] CLIA [id number] [address] [place] [address] [place] WBC (Bld) [#/Vol] 10.33 10*3/uL Normal 3.70-11.[address] [facility] Comment on above: Order Comment: Speci men Type: BLOOD SPECIMEN Ordering Facility: [facility] Address: [address] [place] [address] Performed By: #### 5 7021-8 #### [facility] CLIA [id number] [address] [place] [address] [place] CT ABD/PEL W IVCONon 024 CT ABD/PEL W IVCON * * *Final Report* * * DATE OF EXAM: Dec 25 2023 2:24PM [facility] 0530 - CT ABD/PEL W IVCON [...] fractures are noted bilaterally. Lower thorax: Unremarkable. Fence Installer Helper (topogram) images: IMPRESSION: 1. No acute findings are identified. 2. Cirrhotic morphology. 3. Right nephrolithiasis. No hydronephrosis. Mixing And Dispensing Supervisor: HAJA Transcribe Date/Time: Dec 25 2023 2:29P Dictated by : OKSANA KLINE MD This examination was interpreted and the report reviewed and electronically signed by: OKSANA KLINE MD on Dec 25 2023 2:39PM EST [id number] Normal [facility] Ceruloplasmin SerPl-mCncon 0 12-25-2023 Ceruloplasmin [Mass/Vol] 21 mg/dL Normal 15-30 [facility] Comment on above: Order Comment: Speci men Type: BLOOD SPECIMEN Ordering Facility: [facility] Address: [address] [place] [address] Performed By: #### 2 276-4, 2064-4, 1825-9, 3040-3 #### [facility] CLIA [id number] [address] [place] [address] OF [facility] Comprehensive metabolic 2000 panelon 12-25-2023 Albumin [Mass/Vol] 4.3 g/dL Normal 3.9-4.9 [facility] Comment on above: Order Comment: Speci men Type: BLOOD SPECIMEN Ordering Facility: [facility] Address: [address] [place] [address] Performed By: #### 2 4323-8, 18833-6 #### [facility] CLIA [id number] [address] [place] [address] [place] ALP [Catalytic activity/Vol] 69 U/L Normal 38-113 [facility] Comment on above: Order Comment: Speci men Type: BLOOD SPECIMEN Ordering Facility: [facility] Address: [address] [place] [address] Performed By: #### 2 4323-8, 80496-4 #### [facility] CLIA [id number] [address] [place] [address] [place] ALT [Catalytic activity/Vol] 15 U/L Normal 10-54 [facility] Comment on above: Order Comment: Speci men Type: BLOOD SPECIMEN Ordering Facility: [facility] Address: [address] [place] [address], [place] [address] Performed By: #### 2 432-8, #### [facility] CLIA [id number] [address] [place] [address] [place] Anion gap [Moles/Vol] 12 mmol/L Normal 9-18 [facility] Comment on above: Order Comment: Speci men Type: BLOOD SPECIMEN Ordering Facility: [facility] Address: [address] [place] [address] Performed By: #### 2 432-8, #### [facility] CLIA [id number] [address] [place] [address] [place] AST [Catalytic activity/Vol] 16 U/L Normal 14-40 [facility] Comment on above: Order Comment: Speci men Type: BLOOD SPECIMEN Ordering Facility: [facility] Address: [address] [place] [address] Performed By: #### 2 8, #### [facility] CLIA [id number] [address] [place] [address] [place] Bilirubin [Mass/Vol] 0.6 mg/dL Normal 0.2-1.[address] [facility] Comment on above: Order Comment: Speci men Type: BLOOD SPECIMEN Ordering Facility: [facility] Address: [facility] [place] [address] Performed By: #### 2 4323-05, #### [facility] CLIA [id number] [address] [place] [address] [place] Calcium [Mass/Vol] 9.6 mg/dL Normal 8.5-10.2 [facility] Comment on above: Order Comment: Speci men Type: BLOOD SPECIMEN Ordering Facility: [facility] Address: [address] [place] [address] Performed By: #### 2 4322-8, #### [facility] CLIA [id number] [address] [place] [address] [place] Chloride [Moles/Vol] 95 mmol/L Low 97-[address] [facility] Comment on above: Order Comment: Speci men Type: BLOOD SPECIMEN Ordering Facility: [facility] Address: [address] [place] [address] Performed By: #### 2 4323-8, 15659-8 #### [facility] CLIA [id number] [address] [place] [address] [place] CO2 [Moles/Vol] 23 mmol/L Normal 22-30 [facility] Comment on above: Order Comment: Speci men Type: BLOOD SPECIMEN Ordering Facility: [facility] Address: [address] [place] [address] Performed By: #### 2 4323-8, 52621-9 #### [facility] CLIA [id number] [address] [place] [address] [place] Creatinine [Mass/Vol] 0.78 mg/dL Normal 0.73-1.22 [facility] Comment on above: Order Comment: Speci men Type: BLOOD SPECIMEN Ordering Facility: [facility] Address: [address] [place] [address] Performed By: #### 2 4323-8, 59696-0 #### [facility] CLIA [id number] [address] [place] [address] [place] Creatinine and Glomerular filtration rate.predicted panel (S/P/Bld) 100 mL/min/1.73m??? Normal >=60 [facility] Comment on above: Order Comment: Speci men Type: BLOOD SPECIMEN Ordering Facility: [facility] Address: [address] [place] [address] Result Comment: Brie mated Glomerular Filtration Rate [...] GFR. Performed By: #### 2 43212-24, #### [facility] CL[facility] [id number] [address] [place] [address] [place] Glucose [Mass/Vol] 108 mg/dL High 74-99 [facility] Comment on above: Order Comment: Kel garcia Type: BLOOD SPECIMEN Ordering Facility: [facility] Address: [address] [place] [address] Result Comment: The [place] [employer] (ADA) provides guidance for cutoff [...] Standards of Medical Care in Diabetes 2016, [place] [employer]. Diabetes Care. 2016.39(Suppl 1). Performed By: #### 2 43212-24, #### [facility] CLIA [id number] [address] [place] [address] [place] Potassium [Moles/Vol] 3.5 mmol/L Low 3.7-5.1 [facility] Comment on above: Order Comment: Kel garcia Type: BLOOD SPECIMEN Ordering Facility: [facility] Address: [address] [place] [address] Performed By: #### 2 43212-24, #### [facility] CLIA [id number] [address] [place] [address] [place] Protein [Mass/Vol] 7.3 g/dL Normal 6.3-8.0 [facility] Comment on above: Order Comment: Speci men Type: BLOOD SPECIMEN Ordering Facility: [facility] Address: [address] [place] [address] Performed By: #### 2 4323-8, #### [facility] [id number] [address] [place] [address] [place] Sodium [Moles/Vol] 130 mmol/L Low 136-144 [facility] Comment on above: Order Comment: Speci men Type: BLOOD SPECIMEN Ordering Facility: [facility] Address: [address] [place] [address] Performed By: #### 2 4323-8, #### [facility] [id number] [address] [place] [address] [place] Urea nitrogen [Mass/Vol] 11 mg/dL Normal 9-24 [facility] Comment on above: Order Comment: Speci men Type: BLOOD SPECIMEN Ordering Facility: [facility] Address: [address] [place] [address] Performed By: #### 2 4323-8, #### [facility] [id number] [address] [place] [address] [place] Ferritin SerPl-mCncon 2023 Ferritin [Mass/Vol] 295.0 ng/mL Normal 30.3-565.[address] [facility] Comment on above: Order Comment: Speci men Type: BLOOD SPECIMEN Ordering Facility: [facility] Address: [address] [place] [address] Performed By: #### 2 276-4, 2064-4, 1825-9, 3040-3 #### [facility] CLIA [id number] [address] [facility] [id number] [address] [place] Lipase SerPl-cCncon 12-25-19 24 Lipase [Catalytic activity/Vol] 39 U/L Normal 16-61 [facility] Comment on above: Order Comment: Speci men Type: BLOOD SPECIMEN Ordering Facility: [facility] Address: [address] [place] [address] Performed By: #### 2 276-4, 2064-4, 1825-9, 3040-3 #### [facility] CLIA [id number] [address] [place] [address] [place] Magnesium SerPl-mCncon 12-24 Magnesium [Mass/Vol] 1.8 mg/dL Normal 1.7-2.[address] [facility] Comment on above: Order Comment: Speci men Type: BLOOD SPECIMEN Ordering Facility: [facility] Address: [address] [place] [address] Performed By: #### 2 4323-8, 57567-6 #### [facility] CLIA [id number] [address] [place] [address] [place] Mitochondria Ab IF Ql (S)on 12-25-2023 Mitochondria M2 Ab IA Qn (S) 1.6 Units Normal <=20.0 [facility] Comment on above: Order Comment: Speci men Type: BLOOD SPECIMEN Ordering Facility: [facility] Address: [address] [place] [address] Performed By: #### 1 4252-1, JAN, 28450-4 #### [facility] CLIA [id number] [address] [place] [address] [place] Mitochondria M2 Ab Ql (S) Negative Normal Negative [facility] Comment on above: Order Comment: Speci men Type: BLOOD SPECIMEN Ordering Facility: [facility] Address: [address] [place] [address] Result Comment: Anti -mitochondrial antibody test is used as an aid in diagnosis of primary biliary cholangitis. Clinical correlation is required. Performed By: #### 1 4252-1, JAN, 91449-4 #### [facility] CLIA [id number] [address] [place] [address] [place] PT panel Coag (PPP)on 2023 INR Coag (PPP) [Relative time] 1.0 {INR} Normal 0.9-1.3 [facility] Comment on above: Order Comment: Kel garcia Type: BLOOD SPECIMEN Ordering Facility: [facility] Address: [facility], [place] [address] Result Comment: Celine min K Antagonist (VKA) Therapeutic Range: INR 2 to 3 (Target INR of 2.5) Note: For patients treated with VKA drugs, such as warfarin, the [place] [employer] 2012 Guideline recommends [...] Beltran GH, et al. Chest 2012, 141:7S-47S Avndana RA, et al. [facility] 2017, 70: 252-289 Performed By: #### P LATF4 #### [facility] CLIA [id number] [address] [place] [address] [place] PT Coag (PPP) [Time] 10.2 s Normal <13.[address] [facility] Comment on above: Order Comment: Kel garcia Type: BLOOD SPECIMEN Ordering Facility: [facility] Address: [facility], [place] [address] Performed By: #### P LATF4 #### [facility] CLIA [id number] [address] [place] [address] [place] Smooth muscle Ab Ql (S)on ACTIN SMOOTH MUSCLE IGG QUALITATIVE Negative Normal Negative [facility] Comment on above: Order Comment: Kel garcia Type: BLOOD SPECIMEN Ordering Facility: [facility] Address: [address] [place] [address] Performed By: #### 1 4252-1, JAN, 97001-9 #### [facility] CLIA [id number] [address] [place] [address] [place] ACTIN SMOOTH MUSCLE IGG QUANTITATIVE 13 Units Normal <20 [facility] Comment on above: Order Comment: Speci men Type: BLOOD SPECIMEN Ordering Facility: [facility] Address: [address] [place] [address] Performed By: #### 1 4252-1, JAN, 79566-8 #### [facility] CLIA [id number] [address] [place] [address] [place] CNOVon 12-24-2023 CNOV Office Visit ([facility] ) ----- JORJEWOODY ([id number]) 1960 M T Date Time Provider Department [...] Pt performed labs, got recommended EGD through [facility]. 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 Low grade fevers at home. [facility] Admission 10/2023 HOSPITAL COURSE: Woody Ni [...] diet and he is being discharged to [facility] 2021 OV 2021 Woody Ni is a [...] (FLONASE) 50 mcg/actuation nasal spray Use 1 Wheeler in the nose once daily as needed. [...] iron deficiency (more content not included)... Normal [facility] CBC panel Auto (Bld)on 10-27 Erythrocyte distribution width (RBC) [Ratio] 13.8 % 11.5 - 14.5 % [facility] Hematocrit (Bld) [Volume fraction] 32.1 % Low 40.0 - 52.0 % [facility] Hemoglobin (Bld) [Mass/Vol] 10.8 g/dL Low 13.0 - 18.0 g/dL [facility] Interpretation and review of laboratory results Abnormal [facility] MCH (RBC) [Entitic mass] 34.0 pg 26.0 - 34.0 pg [facility] MCHC (RBC) [Mass/Vol] 33.7 % 32.0 - 36.0 % [facility] MCV (RBC) [Entitic vol] 100.9 fL High 80.0 - 98.0 fL [facility] Platelet mean volume (Bld) [Entitic vol] 8.2 fL 7.4 - 12.4 fL [facility] Platelets (Bld) [#/Vol] 76 10*3/uL Low 140 - 440 10*3/uL [facility] RBC (Bld) [#/Vol] 3.18 10*6/uL Low 4.40 - 5.9 0 10*6/uL [facility] WBC (Bld) [#/Vol] 3.3 10*3/uL Low 3.6 - 10.7 10*3/uL [facility] Comprehensive metabolic 1998 panelon 10-27-2023 Albumin [Mass/Vol] 3.5 g/dL 3.5 - 5.0 g/dL [facility] ALP [Catalytic activity/Vol] 70 U/L 38 - 126 U/L [facility] ALT [Catalytic activity/Vol] 50 U/L High 0 - 49 U/L [facility] Anion gap [Moles/Vol] 10 mmol/L 3 - 13 mmol/L [facility] AST [Catalytic activity/Vol] 63 U/L High 15 - 46 U/L [facility] Bilirubin [Mass/Vol] 0.6 mg/dL 0.2 - 1 .3 mg/dL [facility] Calcium [Mass/Vol] 9.1 mg/dL 8.4 - 10. 4 mg/dL [facility] Chloride [Moles/Vol] 100 mmol/L 98 - 10 7 mmol/L [facility] CO2 [Moles/Vol] 24 mmol/L 22 - 30 mmol/L [facility] Creatinine [Mass/Vol] 0.66 mg/dL 0.66 - 1.25 mg/dL [facility] GFR/1.73 sq M.predicted MDRD (S/P/Bld) [Vol rate/Area] - PINF [facility] Comment on above: Calculation based on the Chronic Kidney Disease Epidemiology Collaboration (CKD-EPI) equation refit without adjustment for race Glucose [Mass/Vol] 111 mg/dL High 70 - 100 mg/dL [facility] Potassium [Moles/Vol] 3.6 mmol/L 3.5 - 5.1 mmol/L [facility] Protein [Mass/Vol] 6.5 g/dL 6.3 - 8.2 g/dL [facility] Sodium [Moles/Vol] 134 mmol/L Low 135 - 145 mmol/L [facility] Urea nitrogen [Mass/Vol] 11 mg/dL 9 - 20 mg/dL [facility] Lipaseon 10-27-2023 Lipase [Catalytic activity/Vol] 309 U/L High 23 - 300 U/L [facility] No Panel Informationon 10-27 Interpretation and review of laboratory results Abnormal [facility] CBC panel Auto (Bld)on 10-26 Erythrocyte distribution width (RBC) [Ratio] 13.3 % 11.5 - 14.5 % [facility] Hematocrit (Bld) [Volume fraction] 30.3 % Low 40.0 - 52.0 % [facility] Hemoglobin (Bld) [Mass/Vol] 10.2 g/dL Low 13.0 - 18.0 g/dL [facility] Interpretation and review of laboratory results Abnormal [facility] MCH (RBC) [Entitic mass] 33.8 pg 26.0 - 34.0 pg [facility] MCHC (RBC) [Mass/Vol] 33.7 % 32.0 - 36.0 % [facility] MCV (RBC) [Entitic vol] 100.2 fL High 80.0 - 98.0 fL [facility] Platelet mean volume (Bld) [Entitic vol] 8.6 fL 7.4 - 12.4 fL [facility] Platelets (Bld) [#/Vol] 52 10*3/uL Low 140 - 440 10*3/uL [facility] RBC (Bld) [#/Vol] 3.02 10*6/uL Low 4.40 - 5.9 0 10*6/uL [facility] WBC (Bld) [#/Vol] 3.7 10*3/uL 3.6 - 10.7 10*3/uL [facility] Comprehensive metabolic 1998 panelon 10-26-2023 Albumin [Mass/Vol] 3.2 g/dL Low 3.5 - 5.0 g/dL [facility] ALP [Catalytic activity/Vol] 67 U/L 38 - 126 U/L [facility] ALT [Catalytic activity/Vol] 46 U/L 0 - 49 U/L [facility] Anion gap [Moles/Vol] 5 mmol/L 3 - 13 mmol/L [facility] AST [Catalytic activity/Vol] 61 U/L High 15 - 46 U/L [facility] Bilirubin [Mass/Vol] 0.6 mg/dL 0.2 - 1 .3 mg/dL [facility] Calcium [Mass/Vol] 8.8 mg/dL 8.4 - 10. 4 mg/dL [facility] Chloride [Moles/Vol] 100 mmol/L 98 - 10 7 mmol/L [facility] CO2 [Moles/Vol] 24 mmol/L 22 - 30 mmol/L [facility] Creatinine [Mass/Vol] 0.60 mg/dL Low 0.66 - 1.25 mg/dL [facility] GFR/1.73 sq M.predicted MDRD (S/P/Bld) [Vol rate/Area] - PINF [facility] Comment on above: Calculation based on the Chronic Kidney Disease Epidemiology Collaboration (CKD-EPI) equation refit without adjustment for race Glucose [Mass/Vol] 104 mg/dL High 70 - 100 mg/dL [facility] Potassium [Moles/Vol] 4.1 mmol/L 3.5 - 5.1 mmol/L [facility] Protein [Mass/Vol] 6.1 g/dL Low 6.3 - 8.2 g/dL [facility] Sodium [Moles/Vol] 130 mmol/L Low 135 - 145 mmol/L [facility] Urea nitrogen [Mass/Vol] 9 mg/dL 9 - 20 mg/dL [facility] Heparin-induced platelet ant ibodyOrdered By: Anastacia Stevenson on 10-26-2023 INTERPRETATION (PF4) Negative Negative [facility] PLATELET AB, HEPARIN 0.138 NINF [facility] No anti-platelet fac tor 4 IgG antibody is detected by JORDI assay. Heparin-induced thrombocytopenia (HIT) is unlikely, but should be excluded based on clinical factors. [facility] Lipaseon 10-26-2023 Lipase [Catalytic activity/Vol] 314 U/L High 23 - 300 U/L [facility] Magnesiumon 10-26-2023 Magnesium [Mass/Vol] 1.5 mg/dL Low 1.6 - 2 .3 mg/dL [facility] Magnesium [Mass/Vol]on 10-26 Interpretation and review of laboratory results Abnormal [facility] No Panel Informationon 10-26 Interpretation and review of laboratory results Abnormal [facility] CBC panel Auto (Bld)on 10-25 Erythrocyte distribution width (RBC) [Ratio] 13.2 % 11.5 - 14.5 % [facility] Hematocrit (Bld) [Volume fraction] 28.2 % Low 40.0 - 52.0 % [facility] Hemoglobin (Bld) [Mass/Vol] 9.8 g/dL Low 13.0 - 18.0 g/dL [facility] Interpretation and review of laboratory results Abnormal [facility] MCH (RBC) [Entitic mass] 34.4 pg High 26.0 - 34.0 pg [facility] MCHC (RBC) [Mass/Vol] 34.6 % 32.0 - 36.0 % [facility] MCV (RBC) [Entitic vol] 99.3 fL High 80.0 - 98.0 fL [facility] Platelet mean volume (Bld) [Entitic vol] 7.6 fL 7.4 - 12.4 fL [facility] Platelets (Bld) [#/Vol] 40 10*3/uL Low 140 - 440 10*3/uL [facility] RBC (Bld) [#/Vol] 2.84 10*6/uL Low 4.40 - 5.9 0 10*6/uL [facility] WBC (Bld) [#/Vol] 3.3 10*3/uL Low 3.6 - 10.7 10*3/uL [facility] Comprehensive metabolic 1998 panelon 10-25-2023 Albumin [Mass/Vol] 3.1 g/dL Low 3.5 - 5.0 g/dL [facility] ALP [Catalytic activity/Vol] 64 U/L 38 - 126 U/L [facility] ALT [Catalytic activity/Vol] 45 U/L 0 - 49 U/L [facility] Anion gap [Moles/Vol] 7 mmol/L 3 - 13 mmol/L [facility] AST [Catalytic activity/Vol] 69 U/L High 15 - 46 U/L [facility] Bilirubin [Mass/Vol] 0.7 mg/dL 0.2 - 1 .3 mg/dL [facility] Calcium [Mass/Vol] 8.4 mg/dL 8.4 - 10. 4 mg/dL [facility] Chloride [Moles/Vol] 103 mmol/L 98 - 10 7 mmol/L [facility] CO2 [Moles/Vol] 22 mmol/L 22 - 30 mmol/L [facility] Creatinine [Mass/Vol] 0.60 mg/dL Low 0.66 - 1.25 mg/dL [facility] GFR/1.73 sq M.predicted MDRD (S/P/Bld) [Vol rate/Area] - PINF [facility] Comment on above: Calculation based on the Chronic Kidney Disease Epidemiology Collaboration (CKD-EPI) equation refit without adjustment for race Glucose [Mass/Vol] 94 mg/dL 70 - 100 mg/dL [facility] Potassium [Moles/Vol] 4.0 mmol/L 3.5 - 5.1 mmol/L [facility] Protein [Mass/Vol] 5.9 g/dL Low 6.3 - 8.2 g/dL [facility] Sodium [Moles/Vol] 131 mmol/L Low 135 - 145 mmol/L [facility] Urea nitrogen [Mass/Vol] 7 mg/dL Low 9 - 20 mg/dL [facility] Lipaseon 10-25-2023 Lipase [Catalytic activity/Vol] 321 U/L High 23 - 300 U/L [facility] Magnesiumon 10-25-2023 Magnesium [Mass/Vol] 1.4 mg/dL Low 1.6 - 2 .3 mg/dL [facility] No Panel Informationon 10-25 Interpretation and review of laboratory results Abnormal [facility] CBC panel Auto (Bld)on 10-24 Erythrocyte distribution width (RBC) [Ratio] 13.2 % 11.5 - 14.5 % [facility] Hematocrit (Bld) [Volume fraction] 33.7 % Low 40.0 - 52.0 % [facility] Hemoglobin (Bld) [Mass/Vol] 11.4 g/dL Low 13.0 - 18.0 g/dL [facility] Interpretation and review of laboratory results Abnormal [facility] MCH (RBC) [Entitic mass] 34.0 pg 26.0 - 34.0 pg [facility] MCHC (RBC) [Mass/Vol] 33.8 % 32.0 - 36.0 % [facility] MCV (RBC) [Entitic vol] 100.7 fL High 80.0 - 98.0 fL [facility] Platelet mean volume (Bld) [Entitic vol] 7.8 fL 7.4 - 12.4 fL [facility] Platelets (Bld) [#/Vol] 37 10*3/uL Low 140 - 440 10*3/uL [facility] RBC (Bld) [#/Vol] 3.35 10*6/uL Low 4.40 - 5.9 0 10*6/uL [facility] WBC (Bld) [#/Vol] 3.0 10*3/uL Low 3.6 - 10.7 10*3/uL [facility] Comprehensive metabolic 1998 panelon 10-24-2023 Albumin [Mass/Vol] 3.8 g/dL 3.5 - 5.0 g/dL [facility] ALP [Catalytic activity/Vol] 84 U/L 38 - 126 U/L [facility] ALT [Catalytic activity/Vol] 65 U/L High 0 - 49 U/L [facility] Anion gap [Moles/Vol] 9 mmol/L 3 - 13 mmol/L [facility] AST [Catalytic activity/Vol] 112 U/L High 15 - 46 U/L [facility] Bilirubin [Mass/Vol] 1.7 mg/dL High 0.2 - 1 .3 mg/dL [facility] Calcium [Mass/Vol] 8.5 mg/dL 8.4 - 10. 4 mg/dL [facility] Chloride [Moles/Vol] 103 mmol/L 98 - 10 7 mmol/L [facility] CO2 [Moles/Vol] 19 mmol/L Low 22 - 30 mmol/L [facility] Creatinine [Mass/Vol] 0.59 mg/dL Low 0.66 - 1.25 mg/dL [facility] GFR/1.73 sq M.predicted MDRD (S/P/Bld) [Vol rate/Area] - PINF [facility] Comment on above: Calculation based on the Chronic Kidney Disease Epidemiology Collaboration (CKD-EPI) equation refit without adjustment for race Glucose [Mass/Vol] 89 mg/dL 70 - 100 mg/dL [facility] Interpretation and review of laboratory results Abnormal [facility] Potassium [Moles/Vol] 4.3 mmol/L 3.5 - 5.1 mmol/L [facility] Protein [Mass/Vol] 7.1 g/dL 6.3 - 8.2 g/dL [facility] Sodium [Moles/Vol] 131 mmol/L Low 135 - 145 mmol/L [facility] Urea nitrogen [Mass/Vol] 6 mg/dL Low 9 - 20 mg/dL [facility] Slightly Hemolyzed [facility] Lipaseon 10-24-2023 Lipase [Catalytic activity/Vol] 389 U/L High 23 - 300 U/L [facility] Lipase [Catalytic activity/V ol]on 10-24-2023 Interpretation and review of laboratory results Abnormal [facility] Magnesiumon 10-24-2023 Magnesium [Mass/Vol] 1.9 mg/dL 1.6 - 2 .3 mg/dL [facility] Magnesium [Mass/Vol]on 10-24 Interpretation and review of laboratory results Normal [facility] ANTI PLT FACTOR 4 ABon 10-23 Heparin induced platelet IgG Armani (S) [Interp] Negative Normal Negative [facility] Comment on above: Order Comment: Specadelaida garcia Type: BLOOD SPECIMEN Ordering Facility: [facility] Address: [place] [address] Result Comment: No a nti-platelet factor 4 IgG antibody is detected by JORDI assay. Heparin-induced thrombocytopenia (HIT) is unlikely, but should be excluded based on clinical factors. Performed By: #### P LATF4 #### [facility] CLIA [id number] [address] [place] [address] [place] Platelet factor 4 Qn (PPP) 0.138 OD Normal <0.400 [facility] Comment on above: Order Comment: Kel garcia Type: BLOOD SPECIMEN Ordering Facility: [facility] Address: [facility] [place] [address] Result Comment: Not calculated Performed By: #### P LATF4 #### [facility] CLIA [id number] [address] [place] [address] [place] CBC panel Auto (Bld)Ordered By: Daniel Allen on 10-23-2023 Erythrocyte distribution width (RBC) [Ratio] 13.3 % 11.5 - 14.5 % [facility] Hematocrit (Bld) [Volume fraction] 31.8 % Low 40.0 - 52.0 % [facility] Hemoglobin (Bld) [Mass/Vol] 11.0 g/dL Low 13.0 - 18.0 g/dL [facility] Interpretation and review of laboratory results Abnormal [facility] MCH (RBC) [Entitic mass] 34.0 pg 26.0 - 34.0 pg [facility] MCHC (RBC) [Mass/Vol] 34.5 % 32.0 - 36.0 % [facility] MCV (RBC) [Entitic vol] 98.7 fL High 80.0 - 98.0 fL [facility] Platelet mean volume (Bld) [Entitic vol] 8.2 fL 7.4 - 12.4 fL [facility] Platelets (Bld) [#/Vol] 38 10*3/uL Low 140 - 440 10*3/uL [facility] RBC (Bld) [#/Vol] 3.23 10*6/uL Low 4.40 - 5.9 0 10*6/uL [facility] WBC (Bld) [#/Vol] 4.3 10*3/uL 3.6 - 10.7 10*3/uL [facility] Cobalamin (Vitamin B12) [Mas s/Vol]on 10-23-2023 Interpretation and review of laboratory results Normal [facility] Comprehensive metabolic 1998 panelOrdered By: Montrell Charles on 10-23-2023 Albumin [Mass/Vol] 2.7 g/dL Low 3.5 - 5.0 g/dL [facility] ALP [Catalytic activity/Vol] 56 U/L 38 - 126 U/L [facility] ALT [Catalytic activity/Vol] 41 U/L 0 - 49 U/L [facility] Anion gap [Moles/Vol] 7 mmol/L 3 - 13 mmol/L [facility] AST [Catalytic activity/Vol] 86 U/L High 15 - 46 U/L [facility] Bilirubin [Mass/Vol] 1.7 mg/dL High 0.2 - 1 .3 mg/dL [facility] Calcium [Mass/Vol] 6.4 mg/dL Low 8.4 - 10. 4 mg/dL [facility] Chloride [Moles/Vol] 107 mmol/L 98 - 10 7 mmol/L [facility] CO2 [Moles/Vol] 18 mmol/L Low 22 - 30 mmol/L [facility] Creatinine [Mass/Vol] 0.47 mg/dL Low 0.66 - 1.25 mg/dL [facility] GFR/1.73 sq M.predicted MDRD (S/P/Bld) [Vol rate/Area] - PINF [facility] Comment on above: Calculation based on the Chronic Kidney Disease Epidemiology Collaboration (CKD-EPI) equation refit without adjustment for race Glucose [Mass/Vol] 90 mg/dL 70 - 100 mg/dL [facility] Interpretation and review of laboratory results Abnormal [facility] Potassium [Moles/Vol] 2.7 mmol/L Low 3.5 - 5.1 mmol/L [facility] Protein [Mass/Vol] 5.1 g/dL Low 6.3 - 8.2 g/dL [facility] Sodium [Moles/Vol] 132 mmol/L Low 135 - 145 mmol/L [facility] Urea nitrogen [Mass/Vol] 7 mg/dL Low 9 - 20 mg/dL [facility] Ferritinon 10-23-2023 Ferritin [Mass/Vol] 1190 ng/mL High 18 - 464 ng/mL [facility] Ferritin [Mass/Vol]on 2023 Interpretation and review of laboratory results Abnormal [facility] Folateon 10-23-2023 Folate [Mass/Vol] 15.8 ng/mL 2.9 - PINF ng/mL [facility] Folate [Mass/Vol]on 10-23-19 Interpretation and review of laboratory results Normal [facility] Haptoglobinon 10-23-2023 Haptoglobin [Mass/Vol] 161.5 mg/dL 30.0 - 200.0 mg/dL [facility] Interpretation and review of laboratory results Normal [facility] Iron and Iron binding capaci ty panelon 10-23-2023 Interpretation and review of laboratory results Abnormal [facility] Iron [Mass/Vol] 62 ug/dL 49 - 181 ug/dL [facility] Iron binding capacity [Mass/Vol] 201 ug/dL Low 261 - 497 ug/dL [facility] Iron saturation [Mass fraction] 31 % 15 - 50 % [facility] LDH Lactate to pyruvate reac tion [Catalytic activity/Vol]on 10-23-2023 Interpretation and review of laboratory results Normal [facility] Lactate dehydrogenaseon LDH Lactate to pyruvate reaction [Catalytic activity/Vol] 231 U/L 120 - 246 U/L [facility] Lipaseon 10-23-2023 Lipase [Catalytic activity/Vol] 446 U/L High 23 - 300 U/L [facility] Lipase [Catalytic activity/V ol]on 10-23-2023 Interpretation and review of laboratory results Abnormal [facility] Magnesiumon 10-23-2023 Magnesium [Mass/Vol] 0.8 mg/dL Critically low 1.6 - 2.3 mg/dL [facility] Magnesium [Mass/Vol]on 10-23 Interpretation and review of laboratory results Abnormal [facility] No Panel Informationon 10-23 [facility] Vitamin B12on 10-23-2023 Cobalamin (Vitamin B12) [Mass/Vol] 850 pg/mL 239 - 931 pg/mL [facility] CBC panel Auto (Bld)Ordered By: Sandy Nance on 10-22-2023 Erythrocyte distribution width (RBC) [Ratio] 13.2 % 11.5 - 14.5 % [facility] Hematocrit (Bld) [Volume fraction] 27.3 % Low 40.0 - 52.0 % [facility] Hemoglobin (Bld) [Mass/Vol] 9.1 g/dL Low 13.0 - 18.0 g/dL [facility] Interpretation and review of laboratory results Abnormal [facility] MCH (RBC) [Entitic mass] 33.6 pg 26.0 - 34.0 pg [facility] MCHC (RBC) [Mass/Vol] 33.4 % 32.0 - 36.0 % [facility] MCV (RBC) [Entitic vol] 100.6 fL High 80.0 - 98.0 fL [facility] Platelet mean volume (Bld) [Entitic vol] 7.8 fL 7.4 - 12.4 fL [facility] Platelets (Bld) [#/Vol] 36 10*3/uL Low 140 - 440 10*3/uL [facility] RBC (Bld) [#/Vol] 2.71 10*6/uL Low 4.40 - 5.9 0 10*6/uL [facility] WBC (Bld) [#/Vol] 2.0 10*3/uL Low 3.6 - 10.7 10*3/uL [facility] Comprehensive metabolic 1998 panelon 10-22-2023 Albumin [Mass/Vol] 3.8 g/dL 3.5 - 5.0 g/dL [facility] ALP [Catalytic activity/Vol] 84 U/L 38 - 126 U/L [facility] ALT [Catalytic activity/Vol] 63 U/L High 0 - 49 U/L [facility] Anion gap [Moles/Vol] 11 mmol/L 3 - 13 mmol/L [facility] AST [Catalytic activity/Vol] 153 U/L High 15 - 46 U/L [facility] Bilirubin [Mass/Vol] 3.1 mg/dL High 0.2 - 1 .3 mg/dL [facility] Calcium [Mass/Vol] 8.1 mg/dL Low 8.4 - 10. 4 mg/dL [facility] Chloride [Moles/Vol] 95 mmol/L Low 98 - 10 7 mmol/L [facility] CO2 [Moles/Vol] 23 mmol/L 22 - 30 mmol/L [facility] Creatinine [Mass/Vol] 0.59 mg/dL Low 0.66 - 1.25 mg/dL [facility] GFR/1.73 sq M.predicted MDRD (S/P/Bld) [Vol rate/Area] - PINF [facility] Comment on above: Calculation based on the Chronic Kidney Disease Epidemiology Collaboration (CKD-EPI) equation refit without adjustment for race Glucose [Mass/Vol] 121 mg/dL High 70 - 100 mg/dL [facility] Interpretation and review of laboratory results Abnormal [facility] Potassium [Moles/Vol] 3.2 mmol/L Low 3.5 - 5.1 mmol/L [facility] Protein [Mass/Vol] 7.0 g/dL 6.3 - 8.2 g/dL [facility] Sodium [Moles/Vol] 129 mmol/L Low 135 - 145 mmol/L [facility] Urea nitrogen [Mass/Vol] 5 mg/dL Low 9 - 20 mg/dL [facility] Iron and Iron binding capaci ty panelon 10-22-2023 Interpretation and review of laboratory results Abnormal [facility] Iron [Mass/Vol] 62 ug/dL 49 - 181 ug/dL [facility] Iron binding capacity [Mass/Vol] 202 ug/dL Low 261 - 497 ug/dL [facility] Iron saturation [Mass fraction] 31 % 15 - 50 % [facility] Specimen slightly hemolyzed, interpret results with caution [facility] CBC W Auto Differential pane l (Bld)Ordered By: Philip Medrano on 10-21-2023 Erythrocyte distribution width (RBC) [Ratio] 13.8 % 11.5 - 14.5 % [facility] Hematocrit (Bld) [Volume fraction] 34.9 % Low 40.0 - 52.0 % [facility] Hemoglobin (Bld) [Mass/Vol] 12.0 g/dL Low 13.0 - 18.0 g/dL [facility] Interpretation and review of laboratory results Abnormal [facility] MCH (RBC) [Entitic mass] 33.9 pg 26.0 - 34.0 pg [facility] MCHC (RBC) [Mass/Vol] 34.3 % 32.0 - 36.0 % [facility] MCV (RBC) [Entitic vol] 99.1 fL High 80.0 - 98.0 fL [facility] Nucleated RBC/100 WBC (Bld) [Ratio] 0.1 % [facility] Platelet mean volume (Bld) [Entitic vol] 6.6 fL Low 7.4 - 12.4 fL [facility] Platelets (Bld) [#/Vol] 51 10*3/uL Low 140 - 440 10*3/uL [facility] RBC (Bld) [#/Vol] 3.52 10*6/uL Low 4.40 - 5.9 0 10*6/uL [facility] WBC (Bld) [#/Vol] 4.6 10*3/uL 3.6 - 10.7 10*3/uL [facility] Lipaseon 10-21-2023 Lipase [Catalytic activity/Vol] 483 U/L High 23 - 300 U/L [facility] Lipase [Catalytic activity/V ol]on 10-21-2023 Interpretation and review of laboratory results Abnormal [facility] Manual differential performe d Ql (Bld)on 10-21-2023 Basophils (Bld) [#/Vol] 0.0 10*3/uL 0.0 - 0.2 10*3/uL [facility] Basophils Manual 1 [facility] Basophils/100 WBC (Bld) 1 % 0 - 2 % [email or web address] Cells Counted Total (Bld) [#] 100 {cells} [email or web address] Differential Method Automated differenti al reported after manual slide review [email or web address] Eosinophils (Bld) [#/Vol] 0.0 10*3/uL 0.0 - 0.5 10*3/uL [facility] Eosinophils Manual 1 0 - 1 [facility] Eosinophils/100 WBC (Bld) 1 % 1 - 6 % [email or web address] Leukocyte morphology finding Nom (Bld) Normal [facility] Lymphocytes (Bld) [#/Vol] 1.2 10*3/uL 1.0 - 4.3 10*3/uL [facility] Lymphocytes Manual 25 [facility] Lymphocytes/100 WBC (Bld) 25 % 20 - 40 % [email or web address] Monocytes (Bld) [#/Vol] 0.4 10*3/uL 0.0 - 0.8 10*3/uL [email or web address] Monocytes Manual 8 [facility] Monocytes/100 WBC (Bld) 8 % 2 - 10 % [facility] Neutrophils (Bld) [#/Vol] 3.0 10*3/uL 1.8 - 7.0 10*3/uL [email or web address] Neutrophils Manual 65 [email or web address] Platelet morphology finding Nom (Bld) Normal [facility] RBC morphology finding Nom (Bld) Normal [facility] Segmented neutrophils/100 WBC (Bld) 65 % 40 - 80 % [facility] WBC corrected for nucl RBC (Bld) [#/Vol] 4.6 10*3/uL 3.6 - 10.7 10*3/uL [email or web address] No Panel InformationOrdered By: Philip Medrano on 10-21-2023 [email or web address] Basic metabolic 1998 panelon 10-20-2023 Anion gap [Moles/Vol] 19 mmol/L High 3 - 13 mmol/L [email or web address] Calcium [Mass/Vol] 9.3 mg/dL 8.4 - 10. 4 mg/dL [email or web address] Chloride [Moles/Vol] 94 mmol/L Low 98 - 10 7 mmol/L [email or web address] CO2 [Moles/Vol] 19 mmol/L Low 22 - 30 mmol/L [email or web address] Creatinine [Mass/Vol] 0.71 mg/dL 0.66 - 1.25 mg/dL [facility] GFR/1.73 sq M.predicted MDRD (S/P/Bld) [Vol rate/Area] - PINF [facility] Comment on above: Calculation based on the Chronic Kidney Disease Epidemiology Collaboration (CKD-EPI) equation refit without adjustment for race Glucose [Mass/Vol] 92 mg/dL 70 - 100 mg/dL [facility] Potassium [Moles/Vol] 4.3 mmol/L 3.5 - 5.1 mmol/L [facility] Sodium [Moles/Vol] 133 mmol/L Low 135 - 145 mmol/L [facility] Urea nitrogen [Mass/Vol] 12 mg/dL 9 - 20 mg/dL [facility] CBC W Auto Differential pane l (Bld)Ordered By: Alen Beavers on 10-20-2023 Basophils (Bld) [#/Vol] 0.0 10*3/uL 0.0 - 0.2 10*3/uL [facility] Basophils/100 WBC (Bld) 0.9 % 0.0 - 2.0 % [facility] Eosinophils (Bld) [#/Vol] 0.0 10*3/uL 0.0 - 0.5 10*3/uL [facility] Eosinophils/100 WBC (Bld) 0.6 % Low 1.0 - 6.0 % [facility] Erythrocyte distribution width (RBC) [Ratio] 13.7 % 11.5 - 14.5 % [facility] Hematocrit (Bld) [Volume fraction] 38.3 % Low 40.0 - 52.0 % [facility] Hemoglobin (Bld) [Mass/Vol] 13.1 g/dL 13.0 - 18.0 g/dL [facility] Interpretation and review of laboratory results Abnormal [facility] Lymphocytes (Bld) [#/Vol] 1.7 10*3/uL 1.0 - 4.3 10*3/uL [facility] Lymphocytes/100 WBC (Bld) 32.5 % 20.0 - 40.0 % [facility] MCH (RBC) [Entitic mass] 33.5 pg 26.0 - 34.0 pg [facility] MCHC (RBC) [Mass/Vol] 34.1 % 32.0 - 36.0 % [facility] MCV (RBC) [Entitic vol] 98.2 fL High 80.0 - 98.0 fL [facility] Monocytes (Bld) [#/Vol] 0.4 10*3/uL 0.0 - 0.8 10*3/uL [facility] Monocytes/100 WBC (Bld) 6.8 % 2.0 - 10.0 % [facility] Neutrophils (Bld) [#/Vol] 3.1 10*3/uL 1.8 - 7.0 10*3/uL [facility] Neutrophils/100 WBC (Bld) 59.2 % 40.0 - 80.0 % [facility] Nucleated RBC/100 WBC (Bld) [Ratio] 0.2 % [facility] Platelet mean volume (Bld) [Entitic vol] 6.9 fL Low 7.4 - 12.4 fL [facility] Platelets (Bld) [#/Vol] 76 10*3/uL Low 140 - 440 10*3/uL [facility] RBC (Bld) [#/Vol] 3.90 10*6/uL Low 4.40 - 5.9 0 10*6/uL [facility] WBC (Bld) [#/Vol] 5.2 10*3/uL 3.6 - 10.7 10*3/uL [facility] COVID-19, Flu A/B, and RSV [facility] 10-20-2023 FLUAV RNA SHANE+probe Ql (Resp) Not detected Not Detected [facility] FLUBV RNA SHANE+probe Ql (Resp) Not detected Not Detected [facility] Interpretation and review of laboratory results Normal [facility] RSV RNA SHANE+probe Ql (Resp) Not detected Not Detected [facility] SARS-CoV-2 (COVID-19) RNA SHANE+probe Ql (Resp) Not detected Not Detected [facility] SARS-CoV-2 (COVID-19) RNA SHANE+probe Ql (Unsp spec) Methodology: real-time, RT-PCR The SARS-CoV-2, Flu A/B, and RSV Combo assay is intended for in vitro diagnostic use under the FDA Emergency Use Authorization (EUA). This test has not been FDA cleared or approved. In compliance with this authorization, please visit www.fda.gov/media/584164/ download or www.fda.gov/media/659029/ download to access the applicable information sheets. [facility] Comprehensive metabolic 1998 panelon 10-20-2023 Albumin [Mass/Vol] 3.7 g/dL 3.5 - 5.0 g/dL [facility] ALP [Catalytic activity/Vol] 80 U/L 38 - 126 U/L [facility] ALT [Catalytic activity/Vol] 71 U/L High 0 - 49 U/L [facility] Anion gap [Moles/Vol] 16 mmol/L High 3 - 13 mmol/L [facility] AST [Catalytic activity/Vol] 207 U/L High 15 - 46 U/L [facility] Bilirubin [Mass/Vol] 1.2 mg/dL 0.2 - 1 .3 mg/dL [facility] Calcium [Mass/Vol] 8.4 mg/dL 8.4 - 10. 4 mg/dL [facility] Chloride [Moles/Vol] 98 mmol/L 98 - 10 7 mmol/L [facility] CO2 [Moles/Vol] 20 mmol/L Low 22 - 30 mmol/L [facility] Creatinine [Mass/Vol] 0.74 mg/dL 0.66 - 1.25 mg/dL [facility] GFR/1.73 sq M.predicted MDRD (S/P/Bld) [Vol rate/Area] - PINF [facility] Comment on above: Calculation based on the Chronic Kidney Disease Epidemiology Collaboration (CKD-EPI) equation refit without adjustment for race Glucose [Mass/Vol] 70 mg/dL 70 - 100 mg/dL [facility] Potassium [Moles/Vol] 3.6 mmol/L 3.5 - 5.1 mmol/L [facility] Protein [Mass/Vol] 6.8 g/dL 6.3 - 8.2 g/dL [facility] Sodium [Moles/Vol] 133 mmol/L Low 135 - 145 mmol/L [facility] Urea nitrogen [Mass/Vol] 10 mg/dL 9 - 20 mg/dL [facility] Drug screen panel, emergency Ordered By: Hafsa Pucrell on 10-20-2023 Amphetamines Screen method >1000 ng/mL Ql (U) Negative [facility] Barbiturates Screen method >200 ng/mL Ql (U) Negative [facility] Benzodiazepines Ql (U) Negative [facility] COCAINE METAB. SCREEN Negative [facility] Methadone Screen Ql (U) Negative [facility] Opiates Screen Ql (U) Negative [facility] oxyCODONE Ql (U) Negative [facility] Phencyclidine Ql (U) Negative [facility] The expected value f or [...] is needed, request confirmation under separate order. [facility] ECG 12 leadon 10-20-2023 Heart rate 99 /min bpm [facility] P [place] 0 degrees [facility] [place] Interval 127 ms [facility] QRS [place] -57 degrees [facility] QRSD Interval 148 ms [facility] QT Interval 392 ms [facility] QTC Interval 503 ms [facility] T Wave [place] 6 degrees [facility] Sinus rhythm RBBB and LAFB No significant changes compared to previous Electronically Signed On 10-20-2023 18:25:24 EST by Khurram Bob CV Khurram Sinha MD - 10/20/2023 IMPRESSION: Sinus rhythm RBBB and LAFB No significant changes compared to previous Electronically Signed On 10-20-2023 18:25:24 EST by Khurram Bob [facility] Ethanol (Bld) [Mass/Vol]Orde red By: Lorin Carmona on 10-20-2023 Ethanol [Mass/Vol] 0.390 g/dL Critically high 0.000 - 0.010 g/dL [facility] Interpretation and review of laboratory results Abnormal [facility] Hepatic function 2000 panelo n 10-20-2023 Albumin [Mass/Vol] 4.6 g/dL 3.5 - 5.0 g/dL [facility] ALP [Catalytic activity/Vol] 105 U/L 38 - 126 U/L [facility] ALT [Catalytic activity/Vol] 85 U/L High 0 - 49 U/L [facility] AST [Catalytic activity/Vol] 250 U/L High 15 - 46 U/L [facility] Bilirubin [Mass/Vol] 1.4 mg/dL High 0.2 - 1 .3 mg/dL [facility] Bilirubin.conjugated [Mass/Vol] 0.0 mg/dL 0.0 - 0.3 mg/dL [facility] Protein [Mass/Vol] 8.2 g/dL 6.3 - 8.2 g/dL [facility] Lipaseon 10-20-2023 Lipase [Catalytic activity/Vol] 537 U/L High 23 - 300 U/L [facility] Lipase [Catalytic activity/Vol] 615 U/L High 23 - 300 U/L [facility] No Panel Informationon 10-20 Interpretation and review of laboratory results Abnormal [facility] Interpretation and review of laboratory results Abnormal [facility] Troponin Ion 10-20-2023 Troponin I.cardiac [Mass/Vol] ng/mL NINF - 0.034 ng/mL [facility] Troponin I.cardiac [Mass/Vol ]on 10-20-2023 Interpretation and review of laboratory results Normal [facility] Patients with high l evels of Biotin oral intake (ie >5 mg/day) may have falsely decreased Troponin levels. [facility] Interpretation and review of laboratory results Normal [facility] Patients with high l evels of Biotin oral intake (ie >5 mg/day) may have falsely decreased Troponin levels. [facility] Troponin, with Serial Reflex on 10-20-2023 Troponin I.cardiac [Mass/Vol] ng/mL NINF - 0.034 ng/mL [facility] Urinalysis complete panel (U )on 10-20-2023 Bilirubin Ql (U) Negative Negative mg/dL [facility] Clarity (U) Clear Clear [facility] Color (U) Light Yellow Lt. Yellow [facility] Glucose Ql (U) Normal Normal (<70) mg/dL [facility] Hemoglobin Ql (U) Negative Negative mg/dL [facility] Interpretation and review of laboratory results Normal [facility] Ketones (U) [Mass/Vol] Negative Negat zenia mg/dL [facility] Leukocyte esterase Test strip Ql (U) Negative Negative Emma/uL [facility] Nitrite Ql (U) Negative Negative [facility] pH (U) 5.0 [pH] 5.0 - 8.0 pH [facility] Protein (U) [Mass/Vol] Negative Negat zenia mg/dL [facility] Specific gravity (U) [Rel density] 1.006 1.005 - 1.030 [facility] Urobilinogen (U) [Mass/Vol] Normal Normal (0-1) mg/dL [facility] [email or web address] XR Chest Single viewon 10-20 FINDINGS AND IMPRESS ION: SUPPORT DEVICES: None OSSEOUS STRUCTURES: Unremarkable. HEART AND MEDIASTINUM: The cardiomediastinal silhouette appears unchanged from the prior exam. LUNGS AND PLEURA: The lungs are clear. No sizable pleural effusion. Report Dictated on Electronically Signed By: Richie Morrison MD Electronically Signed Date/Time: 10/20/2023 5:24 PM [facility] EMERGENCY DEPARTMENT [employer] Patient Name: WOODY NI : 1960 Exam Date/Time: 10/20/2023 17:10 Procedure: XR CHEST 1 VIEW Ordering Provider: BOB KEVIN Reason For Exam: ABDOMINAL PAIN CHEST CLINICAL INDICATION: Abdominal pain TECHNIQUE: AP portable chest COMPARISON: 06/25/2023 [facility] Richie Morrison MD - 10/20/2023 Patient [...] Signed Date/Time: 10/20/2023 5:24 PM EST [facility] Radiology Study observation (narrative) [facility] XR Chest Single viewOrdered By: Richie Morrison on 10-20-2023 [email or web address] Work Phone: Basic metabolic 1998 panelon 07-05-2023 Anion gap [Moles/Vol] 5 mmol/L 3 - 13 mmol/L [facility] Calcium [Mass/Vol] 9.3 mg/dL 8.4 - 10. 4 mg/dL [facility] Chloride [Moles/Vol] 100 mmol/L 98 - 10 7 mmol/L [facility] CO2 [Moles/Vol] 25 mmol/L 22 - 30 mmol/L [facility] Creatinine [Mass/Vol] 0.87 mg/dL 0.66 - 1.25 mg/dL [facility] GFR/1.73 sq M.predicted MDRD (S/P/Bld) [Vol rate/Area] - PINF [facility] Comment on above: Calculation based on the Chronic Kidney Disease Epidemiology Collaboration (CKD-EPI) equation refit without adjustment for race Glucose [Mass/Vol] 88 mg/dL 70 - 100 mg/dL [facility] Interpretation and review of laboratory results Abnormal [facility] Potassium [Moles/Vol] 4.4 mmol/L 3.5 - 5.1 mmol/L [facility] Sodium [Moles/Vol] 130 mmol/L Low 135 - 145 mmol/L [facility] Urea nitrogen [Mass/Vol] 11 mg/dL 9 - 20 mg/dL [facility] CBC panel Auto (Bld)Ordered By: Daniel Allen on 07-05-2023 Erythrocyte distribution width (RBC) [Ratio] 14.8 % High 11.5 - 14.5 % [facility] Hematocrit (Bld) [Volume fraction] 29.4 % Low 40.0 - 52.0 % [facility] Hemoglobin (Bld) [Mass/Vol] 10.1 g/dL Low 13.0 - 18.0 g/dL [facility] Interpretation and review of laboratory results Abnormal [facility] MCH (RBC) [Entitic mass] 33.5 pg 26.0 - 34.0 pg [facility] MCHC (RBC) [Mass/Vol] 34.3 % 32.0 - 36.0 % [facility] MCV (RBC) [Entitic vol] 97.8 fL 80.0 - 98.0 fL [facility] Platelet mean volume (Bld) [Entitic vol] 7.4 fL 7.4 - 12.4 fL [facility] Platelets (Bld) [#/Vol] 219 10*3/uL 140 - 440 10*3/uL [facility] RBC (Bld) [#/Vol] 3.01 10*6/uL Low 4.40 - 5.9 0 10*6/uL [facility] WBC (Bld) [#/Vol] 4.8 10*3/uL 3.6 - 10.7 10*3/uL [facility] Basic metabolic 1998 panelon 07-04-2023 Anion gap [Moles/Vol] 7 mmol/L 3 - 13 mmol/L [facility] Calcium [Mass/Vol] 9.5 mg/dL 8.4 - 10. 4 mg/dL [facility] Chloride [Moles/Vol] 100 mmol/L 98 - 10 7 mmol/L [facility] CO2 [Moles/Vol] 25 mmol/L 22 - 30 mmol/L [facility] Creatinine [Mass/Vol] 0.97 mg/dL 0.66 - 1.25 mg/dL [facility] GFR/1.73 sq M.predicted MDRD (S/P/Bld) [Vol rate/Area] 87.7 mL/min/{1.73_m2} - PINF [facility] Comment on above: Calculation based on the Chronic Kidney Disease Epidemiology Collaboration (CKD-EPI) equation refit without adjustment for race Glucose [Mass/Vol] 107 mg/dL High 70 - 100 mg/dL [facility] Interpretation and review of laboratory results Abnormal [facility] Potassium [Moles/Vol] 4.8 mmol/L 3.5 - 5.1 mmol/L [facility] Sodium [Moles/Vol] 132 mmol/L Low 135 - 145 mmol/L [facility] Urea nitrogen [Mass/Vol] 12 mg/dL 9 - 20 mg/dL [facility] Anion gap [Moles/Vol] 8 mmol/L 3 - 13 mmol/L [facility] Calcium [Mass/Vol] 8.7 mg/dL 8.4 - 10. 4 mg/dL [facility] Chloride [Moles/Vol] 102 mmol/L 98 - 10 7 mmol/L [facility] CO2 [Moles/Vol] 20 mmol/L Low 22 - 30 mmol/L [facility] Creatinine [Mass/Vol] 0.90 mg/dL 0.66 - 1.25 mg/dL [facility] GFR/1.73 sq M.predicted MDRD (S/P/Bld) [Vol rate/Area] - [facility] Comment on above: Calculation based on the Chronic Kidney Disease Epidemiology Collaboration (CKD-EPI) equation refit without adjustment for race Glucose [Mass/Vol] 140 mg/dL High 70 - 100 mg/dL [facility] Interpretation and review of laboratory results Abnormal [facility] Potassium [Moles/Vol] 4.2 mmol/L 3.5 - 5.1 mmol/L [facility] Sodium [Moles/Vol] 130 mmol/L Low 135 - 145 mmol/L [facility] Urea nitrogen [Mass/Vol] 8 mg/dL Low 9 - 20 mg/dL [facility] Anion gap [Moles/Vol] 3 mmol/L 3 - 13 mmol/L [facility] Calcium [Mass/Vol] 8.9 mg/dL 8.4 - 10. 4 mg/dL [facility] Chloride [Moles/Vol] 103 mmol/L 98 - 10 7 mmol/L [facility] CO2 [Moles/Vol] 24 mmol/L 22 - 30 mmol/L [facility] Creatinine [Mass/Vol] 0.85 mg/dL 0.66 - 1.25 mg/dL [facility] GFR/1.73 sq M.predicted MDRD (S/P/Bld) [Vol rate/Area] - [facility] Comment on above: Calculation based on the Chronic Kidney Disease Epidemiology Collaboration (CKD-EPI) equation refit without adjustment for race Glucose [Mass/Vol] 98 mg/dL 70 - 100 mg/dL [facility] Interpretation and review of laboratory results Abnormal [facility] Potassium [Moles/Vol] 4.5 mmol/L 3.5 - 5.1 mmol/L [facility] Sodium [Moles/Vol] 130 mmol/L Low 135 - 145 mmol/L [facility] Urea nitrogen [Mass/Vol] 10 mg/dL 9 - 20 mg/dL [facility] CBC panel Auto (Bld)on 07-04 Erythrocyte distribution width (RBC) [Ratio] 14.9 % High 11.5 - 14.5 % [facility] Hematocrit (Bld) [Volume fraction] 28.1 % Low 40.0 - 52.0 % [facility] Hemoglobin (Bld) [Mass/Vol] 9.5 g/dL Low 13.0 - 18.0 g/dL [facility] Interpretation and review of laboratory results Abnormal [facility] MCH (RBC) [Entitic mass] 33.2 pg 26.0 - 34.0 pg [facility] MCHC (RBC) [Mass/Vol] 33.9 % 32.0 - 36.0 % [facility] MCV (RBC) [Entitic vol] 98.0 fL 80.0 - 98.0 fL [facility] Platelet mean volume (Bld) [Entitic vol] 7.5 fL 7.4 - 12.4 fL [facility] Platelets (Bld) [#/Vol] 190 10*3/uL 140 - 440 10*3/uL [facility] RBC (Bld) [#/Vol] 2.86 10*6/uL Low 4.40 - 5.9 0 10*6/uL [facility] WBC (Bld) [#/Vol] 3.2 10*3/uL Low 3.6 - 10.7 10*3/uL [facility] Basic metabolic 1998 panelon 07-03-2023 Anion gap [Moles/Vol] 6 mmol/L 3 - 13 mmol/L [facility] Calcium [Mass/Vol] 9.1 mg/dL 8.4 - 10. 4 mg/dL [facility] Chloride [Moles/Vol] 103 mmol/L 98 - 10 7 mmol/L [facility] CO2 [Moles/Vol] 23 mmol/L 22 - 30 mmol/L [facility] Creatinine [Mass/Vol] 0.82 mg/dL 0.66 - 1.25 mg/dL [facility] GFR/1.73 sq M.predicted MDRD (S/P/Bld) [Vol rate/Area] - PINF [facility] Comment on above: Calculation based on the Chronic Kidney Disease Epidemiology Collaboration (CKD-EPI) equation refit without adjustment for race Glucose [Mass/Vol] 112 mg/dL High 70 - 100 mg/dL [facility] Interpretation and review of laboratory results Abnormal [facility] Potassium [Moles/Vol] 4.5 mmol/L 3.5 - 5.1 mmol/L [facility] Sodium [Moles/Vol] 131 mmol/L Low 135 - 145 mmol/L [facility] Urea nitrogen [Mass/Vol] 9 mg/dL 9 - 20 mg/dL [facility] Anion gap [Moles/Vol] 6 mmol/L 3 - 13 mmol/L [facility] Calcium [Mass/Vol] 9.4 mg/dL 8.4 - 10. 4 mg/dL [facility] Chloride [Moles/Vol] 97 mmol/L Low 98 - 10 7 mmol/L [facility] CO2 [Moles/Vol] 24 mmol/L 22 - 30 mmol/L [facility] Creatinine [Mass/Vol] 0.85 mg/dL 0.66 - 1.25 mg/dL [facility] GFR/1.73 sq M.predicted MDRD (S/P/Bld) [Vol rate/Area] - [facility] Comment on above: Calculation based on the Chronic Kidney Disease Epidemiology Collaboration (CKD-EPI) equation refit without adjustment for race Glucose [Mass/Vol] 148 mg/dL High 70 - 100 mg/dL [facility] Interpretation and review of laboratory results Abnormal [facility] Potassium [Moles/Vol] 4.5 mmol/L 3.5 - 5.1 mmol/L [facility] Sodium [Moles/Vol] 127 mmol/L Low 135 - 145 mmol/L [facility] Urea nitrogen [Mass/Vol] 8 mg/dL Low 9 - 20 mg/dL [facility] Anion gap [Moles/Vol] 7 mmol/L 3 - 13 mmol/L [facility] Calcium [Mass/Vol] 9.2 mg/dL 8.4 - 10. 4 mg/dL [facility] Chloride [Moles/Vol] 98 mmol/L 98 - 10 7 mmol/L [facility] CO2 [Moles/Vol] 23 mmol/L 22 - 30 mmol/L [facility] Creatinine [Mass/Vol] 0.85 mg/dL 0.66 - 1.25 mg/dL [facility] GFR/1.73 sq M.predicted MDRD (S/P/Bld) [Vol rate/Area] - [facility] Comment on above: Calculation based on the Chronic Kidney Disease Epidemiology Collaboration (CKD-EPI) equation refit without adjustment for race Glucose [Mass/Vol] 137 mg/dL High 70 - 100 mg/dL [facility] Interpretation and review of laboratory results Abnormal [facility] Potassium [Moles/Vol] 4.4 mmol/L 3.5 - 5.1 mmol/L [facility] Sodium [Moles/Vol] 127 mmol/L Low 135 - 145 mmol/L [facility] Urea nitrogen [Mass/Vol] 6 mg/dL Low 9 - 20 mg/dL [facility] Anion gap [Moles/Vol] 6 mmol/L 3 - 13 mmol/L [facility] Calcium [Mass/Vol] 9.0 mg/dL 8.4 - 10. 4 mg/dL [facility] Chloride [Moles/Vol] 98 mmol/L 98 - 10 7 mmol/L [facility] CO2 [Moles/Vol] 22 mmol/L 22 - 30 mmol/L [facility] Creatinine [Mass/Vol] 0.82 mg/dL 0.66 - 1.25 mg/dL [facility] GFR/1.73 sq M.predicted MDRD (S/P/Bld) [Vol rate/Area] - PINF [facility] Comment on above: Calculation based on the Chronic Kidney Disease Epidemiology Collaboration (CKD-EPI) equation refit without adjustment for race Glucose [Mass/Vol] 122 mg/dL High 70 - 100 mg/dL [facility] Interpretation and review of laboratory results Abnormal [facility] Potassium [Moles/Vol] 3.9 mmol/L 3.5 - 5.1 mmol/L [facility] Sodium [Moles/Vol] 126 mmol/L Low 135 - 145 mmol/L [facility] Urea nitrogen [Mass/Vol] 7 mg/dL Low 9 - 20 mg/dL [facility] Basic metabolic 1998 panelon 07-02-2023 Anion gap [Moles/Vol] 6 mmol/L 3 - 13 mmol/L [facility] Calcium [Mass/Vol] 8.9 mg/dL 8.4 - 10. 4 mg/dL [facility] Chloride [Moles/Vol] 97 mmol/L Low 98 - 10 7 mmol/L [facility] CO2 [Moles/Vol] 23 mmol/L 22 - 30 mmol/L [facility] Creatinine [Mass/Vol] 0.80 mg/dL 0.66 - 1.25 mg/dL [facility] GFR/1.73 sq M.predicted MDRD (S/P/Bld) [Vol rate/Area] - [facility] Comment on above: Calculation based on the Chronic Kidney Disease Epidemiology Collaboration (CKD-EPI) equation refit without adjustment for race Glucose [Mass/Vol] 138 mg/dL High 70 - 100 mg/dL [facility] Interpretation and review of laboratory results Abnormal [facility] Potassium [Moles/Vol] 3.9 mmol/L 3.5 - 5.1 mmol/L [facility] Sodium [Moles/Vol] 127 mmol/L Low 135 - 145 mmol/L [facility] Urea nitrogen [Mass/Vol] 8 mg/dL Low 9 - 20 mg/dL [facility] Anion gap [Moles/Vol] 5 mmol/L 3 - 13 mmol/L [facility] Calcium [Mass/Vol] 8.5 mg/dL 8.4 - 10. 4 mg/dL [facility] Chloride [Moles/Vol] 101 mmol/L 98 - 10 7 mmol/L [facility] CO2 [Moles/Vol] 23 mmol/L 22 - 30 mmol/L [facility] Creatinine [Mass/Vol] 0.92 mg/dL 0.66 - 1.25 mg/dL [facility] GFR/1.73 sq M.predicted MDRD (S/P/Bld) [Vol rate/Area] - PINF [facility] Comment on above: Calculation based on the Chronic Kidney Disease Epidemiology Collaboration (CKD-EPI) equation refit without adjustment for race Glucose [Mass/Vol] 102 mg/dL High 70 - 100 mg/dL [facility] Interpretation and review of laboratory results Abnormal [facility] Potassium [Moles/Vol] 3.6 mmol/L 3.5 - 5.1 mmol/L [facility] Sodium [Moles/Vol] 130 mmol/L Low 135 - 145 mmol/L [facility] Urea nitrogen [Mass/Vol] 14 mg/dL 9 - 20 mg/dL [facility] CBC panel Auto (Bld)Ordered By: Sandy Nance on 07-02-2023 Erythrocyte distribution width (RBC) [Ratio] 15.3 % High 11.5 - 14.5 % [facility] Hematocrit (Bld) [Volume fraction] 29.2 % Low 40.0 - 52.0 % [facility] Hemoglobin (Bld) [Mass/Vol] 10.4 g/dL Low 13.0 - 18.0 g/dL [facility] Interpretation and review of laboratory results Abnormal [facility] MCH (RBC) [Entitic mass] 34.2 pg High 26.0 - 34.0 pg [facility] MCHC (RBC) [Mass/Vol] 35.5 % 32.0 - 36.0 % [facility] MCV (RBC) [Entitic vol] 96.2 fL 80.0 - 98.0 fL [facility] Platelet mean volume (Bld) [Entitic vol] 7.0 fL Low 7.4 - 12.4 fL [facility] Platelets (Bld) [#/Vol] 197 10*3/uL 140 - 440 10*3/uL [facility] RBC (Bld) [#/Vol] 3.03 10*6/uL Low 4.40 - 5.9 0 10*6/uL [facility] WBC (Bld) [#/Vol] 3.3 10*3/uL Low 3.6 - 10.7 10*3/uL [facility] Comprehensive metabolic 1998 panelon 07-02-2023 Albumin [Mass/Vol] 3.7 g/dL 3.5 - 5.0 g/dL [facility] ALP [Catalytic activity/Vol] 87 U/L 38 - 126 U/L [facility] ALT [Catalytic activity/Vol] 28 U/L 0 - 49 U/L [facility] Anion gap [Moles/Vol] 5 mmol/L 3 - 13 mmol/L [facility] AST [Catalytic activity/Vol] 46 U/L 15 - 46 U/L [facility] Bilirubin [Mass/Vol] 0.8 mg/dL 0.2 - 1 .3 mg/dL [facility] Calcium [Mass/Vol] 9.1 mg/dL 8.4 - 10. 4 mg/dL [facility] Chloride [Moles/Vol] 100 mmol/L 98 - 10 7 mmol/L [facility] CO2 [Moles/Vol] 23 mmol/L 22 - 30 mmol/L [facility] Creatinine [Mass/Vol] 0.97 mg/dL 0.66 - 1.25 mg/dL [facility] GFR/1.73 sq M.predicted MDRD (S/P/Bld) [Vol rate/Area] 87.7 mL/min/{1.73_m2} - PINF [facility] Comment on above: Calculation based on the Chronic Kidney Disease Epidemiology Collaboration (CKD-EPI) equation refit without adjustment for race Glucose [Mass/Vol] 133 mg/dL High 70 - 100 mg/dL [facility] Interpretation and review of laboratory results Abnormal [facility] Potassium [Moles/Vol] 3.9 mmol/L 3.5 - 5.1 mmol/L [facility] Protein [Mass/Vol] 6.5 g/dL 6.3 - 8.2 g/dL [facility] Sodium [Moles/Vol] 127 mmol/L Low 135 - 145 mmol/L [facility] Urea nitrogen [Mass/Vol] 13 mg/dL 9 - 20 mg/dL [facility] Basic metabolic 1998 panelon 07-01-2023 Anion gap [Moles/Vol] 6 mmol/L 3 - 13 mmol/L [facility] Calcium [Mass/Vol] 8.6 mg/dL 8.4 - 10. 4 mg/dL [facility] Chloride [Moles/Vol] 99 mmol/L 98 - 10 7 mmol/L [facility] CO2 [Moles/Vol] 22 mmol/L 22 - 30 mmol/L [facility] Creatinine [Mass/Vol] 1.06 mg/dL 0.66 - 1.25 mg/dL [facility] GFR/1.73 sq M.predicted MDRD (S/P/Bld) [Vol rate/Area] 78.9 mL/min/{1.73_m2} - PINF [facility] Comment on above: Calculation based on the Chronic Kidney Disease Epidemiology Collaboration (CKD-EPI) equation refit without adjustment for race Glucose [Mass/Vol] 133 mg/dL High 70 - 100 mg/dL [facility] Interpretation and review of laboratory results Abnormal [facility] Potassium [Moles/Vol] 3.8 mmol/L 3.5 - 5.1 mmol/L [facility] Sodium [Moles/Vol] 128 mmol/L Low 135 - 145 mmol/L [facility] Urea nitrogen [Mass/Vol] 15 mg/dL 9 - 20 mg/dL [facility] Anion gap [Moles/Vol] 8 mmol/L 3 - 13 mmol/L [facility] Calcium [Mass/Vol] 8.7 mg/dL 8.4 - 10. 4 mg/dL [facility] Chloride [Moles/Vol] 99 mmol/L 98 - 10 7 mmol/L [facility] CO2 [Moles/Vol] 21 mmol/L Low 22 - 30 mmol/L [facility] Creatinine [Mass/Vol] 1.08 mg/dL 0.66 - 1.25 mg/dL [email or web address] GFR/1.73 sq M.predicted MDRD (S/P/Bld) [Vol rate/Area] 77.1 mL/min/{1.73_m2} - [facility] Comment on above: Calculation based on the Chronic Kidney Disease Epidemiology Collaboration (CKD-EPI) equation refit without adjustment for race Glucose [Mass/Vol] 104 mg/dL High 70 - 100 mg/dL [facility] Interpretation and review of laboratory results Abnormal [email or web address] Potassium [Moles/Vol] 4.1 mmol/L 3.5 - 5.1 mmol/L [email or web address] Sodium [Moles/Vol] 128 mmol/L Low 135 - 145 mmol/L [facility] Urea nitrogen [Mass/Vol] 14 mg/dL 9 - 20 mg/dL [facility] Anion gap [Moles/Vol] 9 mmol/L 3 - 13 mmol/L [facility] Calcium [Mass/Vol] 8.6 mg/dL 8.4 - 10. 4 mg/dL [email or web address] Chloride [Moles/Vol] 98 mmol/L 98 - 10 7 mmol/L [email or web address] CO2 [Moles/Vol] 21 mmol/L Low 22 - 30 mmol/L [facility] Creatinine [Mass/Vol] 1.04 mg/dL 0.66 - 1.25 mg/dL [facility] GFR/1.73 sq M.predicted MDRD (S/P/Bld) [Vol rate/Area] 80.7 mL/min/{1.73_m2} - [facility] Comment on above: Calculation based on the Chronic Kidney Disease Epidemiology Collaboration (CKD-EPI) equation refit without adjustment for race Glucose [Mass/Vol] 78 mg/dL 70 - 100 mg/dL [facility] Interpretation and review of laboratory results Abnormal [facility] Potassium [Moles/Vol] 4.5 mmol/L 3.5 - 5.1 mmol/L [facility] Sodium [Moles/Vol] 128 mmol/L Low 135 - 145 mmol/L [facility] Urea nitrogen [Mass/Vol] 11 mg/dL 9 - 20 mg/dL [facility] CBC W Auto Differential pane l (Bld)Ordered By: Philip Medrano on 07-01-2023 Basophils (Bld) [#/Vol] 0.0 10*3/uL 0.0 - 0.2 10*3/uL [facility] Basophils/100 WBC (Bld) 0.4 % 0.0 - 2.0 % [facility] Eosinophils (Bld) [#/Vol] 0.1 10*3/uL 0.0 - 0.5 10*3/uL [facility] Eosinophils/100 WBC (Bld) 1.1 % 1.0 - 6.0 % [facility] Erythrocyte distribution width (RBC) [Ratio] 15.1 % High 11.5 - 14.5 % [facility] Hematocrit (Bld) [Volume fraction] 34.1 % Low 40.0 - 52.0 % [facility] Hemoglobin (Bld) [Mass/Vol] 12.2 g/dL Low 13.0 - 18.0 g/dL [facility] Interpretation and review of laboratory results Abnormal [facility] Lymphocytes (Bld) [#/Vol] 1.2 10*3/uL 1.0 - 4.3 10*3/uL [facility] Lymphocytes/100 WBC (Bld) 22.5 % 20.0 - 40.0 % [facility] MCH (RBC) [Entitic mass] 33.8 pg 26.0 - 34.0 pg [facility] MCHC (RBC) [Mass/Vol] 35.7 % 32.0 - 36.0 % [facility] MCV (RBC) [Entitic vol] 94.7 fL 80.0 - 98.0 fL [facility] Monocytes (Bld) [#/Vol] 0.8 10*3/uL 0.0 - 0.8 10*3/uL [facility] Monocytes/100 WBC (Bld) 14.8 % High 2.0 - 10.0 % [facility] Neutrophils (Bld) [#/Vol] 3.1 10*3/uL 1.8 - 7.0 10*3/uL [facility] Neutrophils/100 WBC (Bld) 61.2 % 40.0 - 80.0 % [facility] Nucleated RBC/100 WBC (Bld) [Ratio] 0.0 % [facility] Platelet mean volume (Bld) [Entitic vol] 7.2 fL Low 7.4 - 12.4 fL [facility] Platelets (Bld) [#/Vol] 242 10*3/uL 140 - 440 10*3/uL [facility] RBC (Bld) [#/Vol] 3.60 10*6/uL Low 4.40 - 5.9 0 10*6/uL [facility] WBC (Bld) [#/Vol] 5.1 10*3/uL 3.6 - 10.7 10*3/uL [facility] Comprehensive metabolic 1998 panelOrdered By: Montrell Charles on 07-01-2023 Albumin [Mass/Vol] 4.1 g/dL 3.5 - 5.0 g/dL [facility] ALP [Catalytic activity/Vol] 92 U/L 38 - 126 U/L [facility] ALT [Catalytic activity/Vol] 40 U/L 0 - 49 U/L [facility] Anion gap [Moles/Vol] 13 mmol/L 3 - 13 mmol/L [facility] AST [Catalytic activity/Vol] 73 U/L High 15 - 46 U/L [facility] Bilirubin [Mass/Vol] 0.7 mg/dL 0.2 - 1 .3 mg/dL [facility] Calcium [Mass/Vol] 8.9 mg/dL 8.4 - 10. 4 mg/dL [facility] Chloride [Moles/Vol] 95 mmol/L Low 98 - 10 7 mmol/L [facility] CO2 [Moles/Vol] 19 mmol/L Low 22 - 30 mmol/L [facility] Creatinine [Mass/Vol] 1.19 mg/dL 0.66 - 1.25 mg/dL [facility] GFR/1.73 sq M.predicted MDRD (S/P/Bld) [Vol rate/Area] 68.6 mL/min/{1.73_m2} - PINF [facility] Comment on above: Calculation based on the Chronic Kidney Disease Epidemiology Collaboration (CKD-EPI) equation refit without adjustment for race Glucose [Mass/Vol] 75 mg/dL 70 - 100 mg/dL [facility] Interpretation and review of laboratory results Abnormal [facility] Potassium [Moles/Vol] 4.0 mmol/L 3.5 - 5.1 mmol/L [facility] Protein [Mass/Vol] 7.0 g/dL 6.3 - 8.2 g/dL [facility] Sodium [Moles/Vol] 128 mmol/L Low 135 - 145 mmol/L [facility] Urea nitrogen [Mass/Vol] 10 mg/dL 9 - 20 mg/dL [facility] - Chemistry and C hemistry - challengeon 07-01-2023 Sodium (24H U) [Mass/Vol] 5 mmol/L Low 30 - 90 mmol/L [facility] No Panel InformationOrdered By: Sergio Chamberlain on 07-01-2023 Interpretation and review of laboratory results Abnormal [facility] OSMOLALITY, URINE 135 Low [facility] No Panel Informationon 07-01 Interpretation and review of laboratory results Abnormal [facility] CBC W Auto Differential pane l (Bld)Ordered By: Maricruz Mesa on 06-30-2023 Basophils (Bld) [#/Vol] 0.0 10*3/uL 0.0 - 0.2 10*3/uL [facility] Basophils/100 WBC (Bld) 0.3 % 0.0 - 2.0 % [facility] Eosinophils (Bld) [#/Vol] 0.1 10*3/uL 0.0 - 0.5 10*3/uL [facility] Eosinophils/100 WBC (Bld) 1.5 % 1.0 - 6.0 % [facility] Erythrocyte distribution width (RBC) [Ratio] 15.2 % High 11.5 - 14.5 % [facility] Hematocrit (Bld) [Volume fraction] 36.9 % Low 40.0 - 52.0 % [facility] Hemoglobin (Bld) [Mass/Vol] 13.0 g/dL 13.0 - 18.0 g/dL [facility] Interpretation and review of laboratory results Abnormal [facility] Lymphocytes (Bld) [#/Vol] 2.1 10*3/uL 1.0 - 4.3 10*3/uL [facility] Lymphocytes/100 WBC (Bld) 31.6 % 20.0 - 40.0 % [facility] MCH (RBC) [Entitic mass] 33.5 pg 26.0 - 34.0 pg [facility] MCHC (RBC) [Mass/Vol] 35.3 % 32.0 - 36.0 % [facility] MCV (RBC) [Entitic vol] 95.0 fL 80.0 - 98.0 fL [email or web address] Monocytes (Bld) [#/Vol] 0.7 10*3/uL 0.0 - 0.8 10*3/uL [facility] Monocytes/100 WBC (Bld) 10.9 % High 2.0 - 10.0 % [facility] Neutrophils (Bld) [#/Vol] 3.6 10*3/uL 1.8 - 7.0 10*3/uL [facility] Neutrophils/100 WBC (Bld) 55.7 % 40.0 - 80.0 % [facility] Nucleated RBC/100 WBC (Bld) [Ratio] 0.2 % [facility] Platelet mean volume (Bld) [Entitic vol] 6.9 fL Low 7.4 - 12.4 fL [email or web address] Platelets (Bld) [#/Vol] 256 10*3/uL 140 - 440 10*3/uL [facility] RBC (Bld) [#/Vol] 3.89 10*6/uL Low 4.40 - 5.9 0 10*6/uL [facility] WBC (Bld) [#/Vol] 6.5 10*3/uL 3.6 - 10.7 10*3/uL [facility] CT Cervical spine WO contras ton 06-30-2023 [facility] 1960 [id number] Exam Date/Time: 06/30/2023 17:49 Procedure: CT CERVICAL [...] canal encroachment. Paraspinal soft tissues grossly unremarkable. [facility] Dallas Hanks MD - 06/30/2023 [...] Electronically Signed Date/Time: 06/30/2023 5:58 PM EDT [email or web address] CT Head WO contraston 2022 Patient Name: [...] canal encroachment. Paraspinal soft tissues grossly unremarkable. [facility] Dallas Hanks MD - 06/30/2023 [...] Signed Date/Time: 06/30/2023 5:58 PM EDT [facility] Comprehensive metabolic 1998 panelOrdered By: Hafsa Purcell on 06-30-2023 Albumin [Mass/Vol] 4.8 g/dL 3.5 - 5.0 g/dL [facility] ALP [Catalytic activity/Vol] 102 U/L 38 - 126 U/L [facility] ALT [Catalytic activity/Vol] 45 U/L 0 - 49 U/L [facility] Anion gap [Moles/Vol] 14 mmol/L High 3 - 13 mmol/L [facility] AST [Catalytic activity/Vol] 83 U/L High 15 - 46 U/L [facility] Bilirubin [Mass/Vol] 0.8 mg/dL 0.2 - 1 .3 mg/dL [facility] Calcium [Mass/Vol] 9.2 mg/dL 8.4 - 10. 4 mg/dL [facility] Chloride [Moles/Vol] 86 mmol/L Low 98 - 10 7 mmol/L [facility] CO2 [Moles/Vol] 19 mmol/L Low 22 - 30 mmol/L [facility] Creatinine [Mass/Vol] 1.36 mg/dL High 0.66 - 1.25 mg/dL [facility] GFR/1.73 sq M.predicted MDRD (S/P/Bld) [Vol rate/Area] 58.5 mL/min/{1.73_m2} Low - PINF [facility] Comment on above: Calculation based on the Chronic Kidney Disease Epidemiology Collaboration (CKD-EPI) equation refit without adjustment for race Glucose [Mass/Vol] 82 mg/dL 70 - 100 mg/dL [facility] Interpretation and review of laboratory results Abnormal [facility] Potassium [Moles/Vol] 4.3 mmol/L 3.5 - 5.1 mmol/L [facility] Protein [Mass/Vol] 8.4 g/dL High 6.3 - 8.2 g/dL [facility] Sodium [Moles/Vol] 119 mmol/L Critically low 135 - 1 45 mmol/L [facility] Urea nitrogen [Mass/Vol] 11 mg/dL 9 - 20 mg/dL [facility] Ethanol (Bld) [Mass/Vol]on 0 06-30-2023 Ethanol [Mass/Vol] 0.270 g/dL High 0.000 - 0.010 g/dL [facility] Interpretation and review of laboratory results Abnormal [facility] Laboratory - Drug toxicology on 06-30-2023 Amphetamines Screen method >1000 ng/mL Ql (U) Negative [facility] Barbiturates Screen method >200 ng/mL Ql (U) Positive [facility] Benzodiazepines Ql (U) Negative [facility] Methadone Screen Ql (U) Negative [facility] Opiates Screen Ql (U) Negative [facility] oxyCODONE Ql (U) Negative [facility] Phencyclidine Ql (U) Negative [facility] Laboratory - Microbiology an d Antimicrobial susceptibilityon 06-30-2023 SARS-CoV-2 (COVID-19) Ag IA.rapid Ql (Resp) Negative Negative [facility] Comment on above: A negative result do es not rule out the possibility of SARS-CoV-2 infection. NAAT-based methods should be considered for symptomatic patients presenting greater than seven days after onset of symptoms. Method: Lateral flow immunoassay. Fact sheets for healthcare providers and patients can be found at the following sites: https://www.fda.gov/media/162499/download https://www.fda.gov/media/310038/download No Panel Informationon 06-30 COCAINE METAB. SCREEN Negative [facility] The expected value f or all [...] is needed, request confirmation under separate order. [facility] 1. No acute intracranial findings. Chronic ischemic and atrophic changes. 2. No acute compression deformity or apparent fracture in the cervical spine. Degenerative spondylosis. Report Dictated on Electronically Signed By: Dallas Hanks MD Electronically Signed Date/Time: 06/30/2023 5:58 PM EDT [facility] Radiology Study observation (narrative) [facility] No Panel InformationOrdered By: Dallas Hanks on 06-30-2023 [facility] Work Phone: SARS-CoV-2 (COVID-19) Ag IA. rapid Ql (Resp)on 06-30-2023 Interpretation and review of laboratory results Normal [facility] CBC panel Auto (Bld)on 04-15 Erythrocyte distribution width (RBC) [Ratio] 14.1 % 11.5 - 14.5 % [facility] Hematocrit (Bld) [Volume fraction] 31.0 % Low 40.0 - 52.0 % [facility] Hemoglobin (Bld) [Mass/Vol] 10.6 g/dL Low 13.0 - 18.0 g/dL [facility] Interpretation and review of laboratory results Abnormal [facility] MCH (RBC) [Entitic mass] 34.2 pg High 26.0 - 34.0 pg [facility] MCHC (RBC) [Mass/Vol] 34.2 % 32.0 - 36.0 % [facility] MCV (RBC) [Entitic vol] 99.9 fL High 80.0 - 98.0 fL [facility] Platelet mean volume (Bld) [Entitic vol] 7.7 fL 7.4 - 12.4 fL [facility] Platelets (Bld) [#/Vol] 185 10*3/uL 140 - 440 10*3/uL [facility] RBC (Bld) [#/Vol] 3.11 10*6/uL Low 4.40 - 5.9 0 10*6/uL [facility] WBC (Bld) [#/Vol] 4.3 10*3/uL 3.6 - 10.7 10*3/uL [facility] Comprehensive metabolic 1998 panelon 04-15-2023 Albumin [Mass/Vol] 3.6 g/dL 3.5 - 5.0 g/dL [facility] ALP [Catalytic activity/Vol] 58 U/L 38 - 126 U/L [facility] ALT [Catalytic activity/Vol] 65 U/L High 0 - 49 U/L [facility] Anion gap [Moles/Vol] 6 mmol/L 3 - 13 mmol/L [facility] AST [Catalytic activity/Vol] 87 U/L High 15 - 46 U/L [facility] Bilirubin [Mass/Vol] 0.4 mg/dL 0.2 - 1 .3 mg/dL [facility] Calcium [Mass/Vol] 8.8 mg/dL 8.4 - 10. 4 mg/dL [facility] Chloride [Moles/Vol] 100 mmol/L 98 - 10 7 mmol/L [facility] CO2 [Moles/Vol] 23 mmol/L 22 - 30 mmol/L [facility] Creatinine [Mass/Vol] 0.77 mg/dL 0.66 - 1.25 mg/dL [facility] GFR/1.73 sq M.predicted MDRD (S/P/Bld) [Vol rate/Area] - PINF [facility] Comment on above: Calculation based on the Chronic Kidney Disease Epidemiology Collaboration (CKD-EPI) equation refit without adjustment for race Glucose [Mass/Vol] 105 mg/dL High 70 - 100 mg/dL [facility] Interpretation and review of laboratory results Abnormal [facility] Potassium [Moles/Vol] 3.9 mmol/L 3.5 - 5.1 mmol/L [facility] Protein [Mass/Vol] 6.4 g/dL 6.3 - 8.2 g/dL [facility] Sodium [Moles/Vol] 129 mmol/L Low 135 - 145 mmol/L [facility] Urea nitrogen [Mass/Vol] 6 mg/dL Low 9 - 20 mg/dL [facility] CBC panel Auto (Bld)on 04-14 Erythrocyte distribution width (RBC) [Ratio] 13.8 % 11.5 - 14.5 % [facility] Hematocrit (Bld) [Volume fraction] 29.8 % Low 40.0 - 52.0 % [facility] Hemoglobin (Bld) [Mass/Vol] 10.3 g/dL Low 13.0 - 18.0 g/dL [facility] Interpretation and review of laboratory results Abnormal [facility] MCH (RBC) [Entitic mass] 34.0 pg 26.0 - 34.0 pg [facility] MCHC (RBC) [Mass/Vol] 34.6 % 32.0 - 36.0 % [facility] MCV (RBC) [Entitic vol] 98.4 fL High 80.0 - 98.0 fL [facility] Platelet mean volume (Bld) [Entitic vol] 7.4 fL 7.4 - 12.4 fL [facility] Platelets (Bld) [#/Vol] 153 10*3/uL 140 - 440 10*3/uL [facility] RBC (Bld) [#/Vol] 3.03 10*6/uL Low 4.40 - 5.9 0 10*6/uL [facility] WBC (Bld) [#/Vol] 3.5 10*3/uL Low 3.6 - 10.7 10*3/uL [facility] Comprehensive metabolic 1998 panelon 04-14-2023 Albumin [Mass/Vol] 3.5 g/dL 3.5 - 5.0 g/dL [facility] ALP [Catalytic activity/Vol] 65 U/L 38 - 126 U/L [facility] ALT [Catalytic activity/Vol] 61 U/L High 0 - 49 U/L [facility] Anion gap [Moles/Vol] 7 mmol/L 3 - 13 mmol/L [facility] AST [Catalytic activity/Vol] 83 U/L High 15 - 46 U/L [facility] Bilirubin [Mass/Vol] 0.5 mg/dL 0.2 - 1 .3 mg/dL [facility] Calcium [Mass/Vol] 8.4 mg/dL 8.4 - 10. 4 mg/dL [facility] Chloride [Moles/Vol] 97 mmol/L Low 98 - 10 7 mmol/L [facility] CO2 [Moles/Vol] 21 mmol/L Low 22 - 30 mmol/L [facility] Creatinine [Mass/Vol] 0.77 mg/dL 0.66 - 1.25 mg/dL [facility] GFR/1.73 sq M.predicted MDRD (S/P/Bld) [Vol rate/Area] - PINF [facility] Comment on above: Calculation based on the Chronic Kidney Disease Epidemiology Collaboration (CKD-EPI) equation refit without adjustment for race Glucose [Mass/Vol] 95 mg/dL 70 - 100 mg/dL [facility] Interpretation and review of laboratory results Abnormal [facility] Potassium [Moles/Vol] 3.7 mmol/L 3.5 - 5.1 mmol/L [facility] Protein [Mass/Vol] 6.2 g/dL Low 6.3 - 8.2 g/dL [facility] Sodium [Moles/Vol] 125 mmol/L Low 135 - 145 mmol/L [facility] Urea nitrogen [Mass/Vol] 6 mg/dL Low 9 - 20 mg/dL [facility] Laboratory - Chemistry and C hemistry - challengeon 04-14-2023 Magnesium [Mass/Vol] 1.8 mg/dL 1.6 - 2 .3 mg/dL [facility] Magnesium [Mass/Vol]on 04-14 Interpretation and review of laboratory results Normal [facility] CBC panel Auto (Bld)Ordered By: Sandy Nance on 04-13-2023 Erythrocyte distribution width (RBC) [Ratio] 13.7 % 11.5 - 14.5 % [facility] Hematocrit (Bld) [Volume fraction] 29.7 % Low 40.0 - 52.0 % [facility] Hemoglobin (Bld) [Mass/Vol] 10.3 g/dL Low 13.0 - 18.0 g/dL [facility] Interpretation and review of laboratory results Abnormal [facility] MCH (RBC) [Entitic mass] 34.4 pg High 26.0 - 34.0 pg [facility] MCHC (RBC) [Mass/Vol] 34.7 % 32.0 - 36.0 % [facility] MCV (RBC) [Entitic vol] 99.2 fL High 80.0 - 98.0 fL [facility] Platelet mean volume (Bld) [Entitic vol] 8.0 fL 7.4 - 12.4 fL [facility] Platelets (Bld) [#/Vol] 145 10*3/uL 140 - 440 10*3/uL [facility] RBC (Bld) [#/Vol] 2.99 10*6/uL Low 4.40 - 5.9 0 10*6/uL [facility] WBC (Bld) [#/Vol] 3.1 10*3/uL Low 3.6 - 10.7 10*3/uL [facility] Comprehensive metabolic 1998 panelon 04-13-2023 Albumin [Mass/Vol] 3.2 g/dL Low 3.5 - 5.0 g/dL [facility] ALP [Catalytic activity/Vol] 47 U/L 38 - 126 U/L [facility] ALT [Catalytic activity/Vol] 46 U/L 0 - 49 U/L [facility] Anion gap [Moles/Vol] 4 mmol/L 3 - 13 mmol/L [facility] AST [Catalytic activity/Vol] 67 U/L High 15 - 46 U/L [facility] Bilirubin [Mass/Vol] 0.5 mg/dL 0.2 - 1 .3 mg/dL [facility] Calcium [Mass/Vol] 7.9 mg/dL Low 8.4 - 10. 4 mg/dL [facility] Chloride [Moles/Vol] 99 mmol/L 98 - 10 7 mmol/L [facility] CO2 [Moles/Vol] 24 mmol/L 22 - 30 mmol/L [facility] Creatinine [Mass/Vol] 0.76 mg/dL 0.66 - 1.25 mg/dL [facility] GFR/1.73 sq M.predicted MDRD (S/P/Bld) [Vol rate/Area] - PINF [facility] Comment on above: Calculation based on the Chronic Kidney Disease Epidemiology Collaboration (CKD-EPI) equation refit without adjustment for race Glucose [Mass/Vol] 91 mg/dL 70 - 100 mg/dL [facility] Interpretation and review of laboratory results Abnormal [facility] Potassium [Moles/Vol] 3.5 mmol/L 3.5 - 5.1 mmol/L [facility] Protein [Mass/Vol] 5.7 g/dL Low 6.3 - 8.2 g/dL [facility] Sodium [Moles/Vol] 127 mmol/L Low 135 - 145 mmol/L [facility] Urea nitrogen [Mass/Vol] 8 mg/dL Low 9 - 20 mg/dL [facility] Laboratory - Chemistry and C hemistry - challengeOrdered By: Daniel Allen on 06-26-2023 Magnesium [Mass/Vol] 0.9 mg/dL Critically low 1.6 - 2.3 mg/dL [facility] Magnesium [Mass/Vol]Ordered By: Daniel Allen on 04-13-2023 Interpretation and review of laboratory results Abnormal [facility] CBC panel Auto (Bld)Ordered By: Philip Medrano on 04-12-2023 Erythrocyte distribution width (RBC) [Ratio] 14.0 % 11.5 - 14.5 % [facility] Hematocrit (Bld) [Volume fraction] 27.9 % Low 40.0 - 52.0 % [facility] Hemoglobin (Bld) [Mass/Vol] 9.8 g/dL Low 13.0 - 18.0 g/dL [facility] Interpretation and review of laboratory results Abnormal [facility] MCH (RBC) [Entitic mass] 34.7 pg High 26.0 - 34.0 pg [facility] MCHC (RBC) [Mass/Vol] 35.0 % 32.0 - 36.0 % [facility] MCV (RBC) [Entitic vol] 99.1 fL High 80.0 - 98.0 fL [facility] Platelet mean volume (Bld) [Entitic vol] 8.2 fL 7.4 - 12.4 fL [facility] Platelets (Bld) [#/Vol] 134 10*3/uL Low 140 - 440 10*3/uL [facility] RBC (Bld) [#/Vol] 2.82 10*6/uL Low 4.40 - 5.9 0 10*6/uL [facility] WBC (Bld) [#/Vol] 3.1 10*3/uL Low 3.6 - 10.7 10*3/uL [facility] Comprehensive metabolic 1998 panelon 04-12-2023 Albumin [Mass/Vol] 3.2 g/dL Low 3.5 - 5.0 g/dL [facility] ALP [Catalytic activity/Vol] 59 U/L 38 - 126 U/L [facility] ALT [Catalytic activity/Vol] 50 U/L High 0 - 49 U/L [facility] Anion gap [Moles/Vol] 4 mmol/L 3 - 13 mmol/L [facility] AST [Catalytic activity/Vol] 75 U/L High 15 - 46 U/L [facility] Bilirubin [Mass/Vol] 0.3 mg/dL 0.2 - 1 .3 mg/dL [facility] Calcium [Mass/Vol] 8.2 mg/dL Low 8.4 - 10. 4 mg/dL [facility] Chloride [Moles/Vol] 104 mmol/L 98 - 10 7 mmol/L [facility] CO2 [Moles/Vol] 24 mmol/L 22 - 30 mmol/L [facility] Creatinine [Mass/Vol] 0.90 mg/dL 0.66 - 1.25 mg/dL [facility] GFR/1.73 sq M.predicted MDRD (S/P/Bld) [Vol rate/Area] - PINF [facility] Comment on above: Calculation based on the Chronic Kidney Disease Epidemiology Collaboration (CKD-EPI) equation refit without adjustment for race Glucose [Mass/Vol] 97 mg/dL 70 - 100 mg/dL [facility] Interpretation and review of laboratory results Abnormal [facility] Potassium [Moles/Vol] 3.6 mmol/L 3.5 - 5.1 mmol/L [facility] Protein [Mass/Vol] 5.8 g/dL Low 6.3 - 8.2 g/dL [facility] Sodium [Moles/Vol] 131 mmol/L Low 135 - 145 mmol/L [facility] Urea nitrogen [Mass/Vol] 8 mg/dL Low 9 - 20 mg/dL [facility] CBC panel Auto (Bld)Ordered By: Montrell Charles on 04-11-2023 Erythrocyte distribution width (RBC) [Ratio] 14.2 % 11.5 - 14.5 % [facility] Hematocrit (Bld) [Volume fraction] 28.8 % Low 40.0 - 52.0 % [facility] Hemoglobin (Bld) [Mass/Vol] 9.9 g/dL Low 13.0 - 18.0 g/dL [facility] Interpretation and review of laboratory results Abnormal [facility] MCH (RBC) [Entitic mass] 34.6 pg High 26.0 - 34.0 pg [facility] MCHC (RBC) [Mass/Vol] 34.6 % 32.0 - 36.0 % [facility] MCV (RBC) [Entitic vol] 100.0 fL High 80.0 - 98.0 fL [facility] Platelet mean volume (Bld) [Entitic vol] 7.8 fL 7.4 - 12.4 fL [facility] Platelets (Bld) [#/Vol] 119 10*3/uL Low 140 - 440 10*3/uL [facility] RBC (Bld) [#/Vol] 2.88 10*6/uL Low 4.40 - 5.9 0 10*6/uL [facility] WBC (Bld) [#/Vol] 2.3 10*3/uL Low 3.6 - 10.7 10*3/uL [facility] Comprehensive metabolic 1998 panelon 04-11-2023 Albumin [Mass/Vol] 3.2 g/dL Low 3.5 - 5.0 g/dL [facility] ALP [Catalytic activity/Vol] 64 U/L 38 - 126 U/L [facility] ALT [Catalytic activity/Vol] 60 U/L High 0 - 49 U/L [facility] Anion gap [Moles/Vol] 5 mmol/L 3 - 13 mmol/L [facility] AST [Catalytic activity/Vol] 100 U/L High 15 - 46 U/L [facility] Bilirubin [Mass/Vol] 0.4 mg/dL 0.2 - 1 .3 mg/dL [facility] Calcium [Mass/Vol] 8.3 mg/dL Low 8.4 - 10. 4 mg/dL [facility] Chloride [Moles/Vol] 103 mmol/L 98 - 10 7 mmol/L [facility] CO2 [Moles/Vol] 22 mmol/L 22 - 30 mmol/L [facility] Creatinine [Mass/Vol] 0.94 mg/dL 0.66 - 1.25 mg/dL [facility] GFR/1.73 sq M.predicted MDRD (S/P/Bld) [Vol rate/Area] - PINF [facility] Comment on above: Calculation based on the Chronic Kidney Disease Epidemiology Collaboration (CKD-EPI) equation refit without adjustment for race Glucose [Mass/Vol] 89 mg/dL 70 - 100 mg/dL [facility] Interpretation and review of laboratory results Abnormal [facility] Potassium [Moles/Vol] 3.6 mmol/L 3.5 - 5.1 mmol/L [facility] Protein [Mass/Vol] 5.7 g/dL Low 6.3 - 8.2 g/dL [facility] Sodium [Moles/Vol] 130 mmol/L Low 135 - 145 mmol/L [facility] Urea nitrogen [Mass/Vol] 10 mg/dL 9 - 20 mg/dL [email or web address] No Panel InformationOrdered By: Richie Iniguez on 04-11-2023 P [place] 106 degrees [employer] Work Phone: [place] [employer] 158 ms [employer] Work Phone: QRS [place] -40 degrees [employer] Work Phone: QRSD [employer] 140 ms [employer] Work Phone: QT [employer] 368 ms [employer] Work Phone: QTC [employer] 485 ms [employer] Work Phone: T Wave [place] 7 degrees [employer] Work Phone: [employer] Work Phone: No Panel Informationon 04-11 SINUS [...] 04-11-2023 12:14:19 EDT by Richie Iniguez [facility] Vital signsOrdered By: Clifton Iniguez on 04-11-2023 Heart rate 104 /min bpm [email or web address] Work Phone: Comprehensive metabolic 1998 panelon 04-10-2023 Albumin [Mass/Vol] 3.3 g/dL Low 3.5 - 5.0 g/dL [email or web address] ALP [Catalytic activity/Vol] 54 U/L 38 - 126 U/L [email or web address] ALT [Catalytic activity/Vol] 62 U/L High 0 - 49 U/L [facility] Anion gap [Moles/Vol] 5 mmol/L 3 - 13 mmol/L [facility] AST [Catalytic activity/Vol] 142 U/L High 15 - 46 U/L [facility] Bilirubin [Mass/Vol] 0.3 mg/dL 0.2 - 1 .3 mg/dL [facility] Calcium [Mass/Vol] 8.2 mg/dL Low 8.4 - 10. 4 mg/dL [facility] Chloride [Moles/Vol] 101 mmol/L 98 - 10 7 mmol/L [facility] CO2 [Moles/Vol] 23 mmol/L 22 - 30 mmol/L [facility] Creatinine [Mass/Vol] 0.94 mg/dL 0.66 - 1.25 mg/dL [facility] GFR/1.73 sq M.predicted MDRD (S/P/Bld) [Vol rate/Area] - PINF [facility] Comment on above: Calculation based on the Chronic Kidney Disease Epidemiology Collaboration (CKD-EPI) equation refit without adjustment for race Glucose [Mass/Vol] 83 mg/dL 70 - 100 mg/dL [facility] Interpretation and review of laboratory results Abnormal [facility] Potassium [Moles/Vol] 4.1 mmol/L 3.5 - 5.1 mmol/L [facility] Protein [Mass/Vol] 6.0 g/dL Low 6.3 - 8.2 g/dL [facility] Sodium [Moles/Vol] 129 mmol/L Low 135 - 145 mmol/L [facility] Urea nitrogen [Mass/Vol] 6 mg/dL Low 9 - 20 mg/dL [facility] Gastrointestinal pathogens p mac SHANE+probe (Stl)Ordered By: Edy Garcia on 04-10-2023 Adenovirus F 40/41 Not detected Not Detected [facility] Astrovirus Not detected Not Detected [facility] Campylobacter Not detected Not Detected [facility] Cryptosporidium Not detected Not Detected [facility] Cyclospora cayetanensis Not detected Not Detected [facility] Entamoeba histolytica Not detected Not Detected [facility] Enterotoxigenic E coli (ETEC) Not detected Not Detected [facility] Giardia lamblia Not detected Not Detected [facility] Interpretation and review of laboratory results Normal [facility] Norovirus GI/GII Not detected Not Detected [facility] Plesiomonas shigelloides Not detected Not Detected [facility] Rotavirus A Not detected Not Detected [facility] Salmonella Not detected Not Detected [facility] Sapovirus Not detected Not Detected [facility] Shiga toxin-producing E coli (STEC) Not detected Not Detected [facility] Shigella/Enteroinvasiv e E coli (EIEC) Not detected Not Detected [facility] Vibrio cholerae Not detected Not Detected [facility] Vibrio species Not detected Not Detected [facility] Yersinia enterocolitica Not detected Not Detected [facility] Methodology: Multipl ex PCR [facility] Laboratory - Chemistry and C hemistry - challengeon 04-10-2023 Sodium (24H U) [Mass/Vol] 41 mmol/L 30 - 90 mmol/L [facility] TSH Qn 3.864 m[IU]/L [facility] Sodium (24H U) [Mass/Vol] 8 mmol/L Low 30 - 90 mmol/L [facility] No Panel Informationon 04-10 Interpretation and review of laboratory results Normal [facility] Interpretation and review of laboratory results Abnormal [facility] OSMOLALITY, URINE 88 Low [facility] Interpretation and review of laboratory results Abnormal [facility] No Panel InformationOrdered By: Gabriela Franco on 04-10-2023 Interpretation and review of laboratory results Abnormal [facility] OSMOLALITY, URINE 230 Low [facility] No Panel InformationOrdered By: Aylin Moran on 04-10-2023 Interpretation and review of laboratory results Normal [facility] OSMOLALITY, SERUM 286 [facility] TSH Qnon 04-10-2023 Interpretation and review of laboratory results Normal [facility] Urinalysis complete panel (U )on 04-10-2023 Bilirubin Ql (U) Negative Negative mg/dL [facility] Clarity (U) Clear Clear [facility] Color (U) Light Yellow Lt. Yellow [facility] Glucose Ql (U) Normal Normal (<70) mg/dL [facility] Hemoglobin Ql (U) Negative Negative mg/dL [facility] Interpretation and review of laboratory results Normal [facility] Ketones (U) [Mass/Vol] Negative Negat zenia mg/dL [facility] Leukocyte esterase Test strip Ql (U) Negative Negative Emma/uL [facility] Nitrite Ql (U) Negative Negative [facility] pH (U) 5.5 [pH] 5.0 - 8.0 pH [facility] Protein (U) [Mass/Vol] Negative Negat zenia mg/dL [facility] Specific gravity (U) [Rel density] 1.006 1.005 - 1.030 [facility] Urobilinogen (U) [Mass/Vol] Normal Normal (0-1) mg/dL [facility] CBC panel Auto (Bld)Ordered By: Sloane Rubin on 04-09-2023 Erythrocyte distribution width (RBC) [Ratio] 12.8 % 11.5 - 14.5 % [facility] Hematocrit (Bld) [Volume fraction] 28.5 % Low 40.0 - 52.0 % [facility] Hemoglobin (Bld) [Mass/Vol] 10.0 g/dL Low 13.0 - 18.0 g/dL [facility] Interpretation and review of laboratory results Abnormal [facility] MCH (RBC) [Entitic mass] 33.9 pg 26.0 - 34.0 pg [facility] MCHC (RBC) [Mass/Vol] 35.1 % 32.0 - 36.0 % [facility] MCV (RBC) [Entitic vol] 96.6 fL 80.0 - 98.0 fL [facility] Platelet mean volume (Bld) [Entitic vol] 9.2 fL 7.4 - 12.4 fL [facility] Platelets (Bld) [#/Vol] 106 10*3/uL Low 140 - 440 10*3/uL [facility] RBC (Bld) [#/Vol] 2.95 10*6/uL Low 4.40 - 5.9 0 10*6/uL [facility] WBC (Bld) [#/Vol] 3.3 10*3/uL Low 3.6 - 10.7 10*3/uL [facility] Comprehensive metabolic 1998 panelon 04-09-2023 Albumin [Mass/Vol] 3.8 g/dL 3.5 - 5.0 g/dL [facility] ALP [Catalytic activity/Vol] 63 U/L 38 - 126 U/L [facility] ALT [Catalytic activity/Vol] 58 U/L High 0 - 49 U/L [facility] Anion gap [Moles/Vol] 12 mmol/L 3 - 13 mmol/L [facility] AST [Catalytic activity/Vol] 103 U/L High 15 - 46 U/L [facility] Bilirubin [Mass/Vol] 0.3 mg/dL 0.2 - 1 .3 mg/dL [facility] Calcium [Mass/Vol] 8.7 mg/dL 8.4 - 10. 4 mg/dL [facility] Chloride [Moles/Vol] 93 mmol/L Low 98 - 10 7 mmol/L [facility] CO2 [Moles/Vol] 19 mmol/L Low 22 - 30 mmol/L [facility] Creatinine [Mass/Vol] 1.04 mg/dL 0.66 - 1.25 mg/dL [facility] GFR/1.73 sq M.predicted MDRD (S/P/Bld) [Vol rate/Area] 80.7 mL/min/{1.73_m2} - PINF [facility] Comment on above: Calculation based on the Chronic Kidney Disease Epidemiology Collaboration (CKD-EPI) equation refit without adjustment for race Glucose [Mass/Vol] 110 mg/dL High 70 - 100 mg/dL [facility] Potassium [Moles/Vol] 3.9 mmol/L 3.5 - 5.1 mmol/L [facility] Protein [Mass/Vol] 6.6 g/dL 6.3 - 8.2 g/dL [facility] Sodium [Moles/Vol] 124 mmol/L Low 135 - 145 mmol/L [facility] Urea nitrogen [Mass/Vol] 9 mg/dL 9 - 20 mg/dL [facility] Ethanol (Bld) [Mass/Vol]on 0 04-09-2023 Ethanol [Mass/Vol] 0.210 g/dL High 0.000 - 0.010 g/dL [facility] Laboratory - Chemistry and C hemistry - challengeon 04-09-2023 Troponin I.cardiac [Mass/Vol] ng/mL 0.000 - 0.034 ng/mL [facility] Lipase [Catalytic activity/Vol] 287 U/L 23 - 300 U/L [facility] Laboratory - Coagulationon 0 04-09-2023 PT Coag (Bld) [Time] 11.3 s 9.0 - 12.0 s [facility] No Panel Informationon 04-09 Interpretation and review of laboratory results Normal [facility] Interpretation and review of laboratory results Abnormal [facility] PT Coag (Bld) [Time]on 04-09 INR Coag (PPP) [Relative time] 1.0 {INR} 0.9 - 1.1 [facility] Comment on above: Recommended Anticoag ulant [...] and review of laboratory results Normal [facility] Patients with high l evels of Biotin oral intake (ie >5 mg/day) may have falsely decreased Troponin levels. [facility] Urinalysis complete panel (U )on 04-09-2023 Bilirubin Ql (U) Negative Negative mg/dL [facility] Clarity (U) Clear Clear [facility] Color (U) Colorless Lt. Yellow [facility] Glucose Ql (U) Normal Normal (<70) mg/dL [facility] Hemoglobin Ql (U) Negative Negative mg/dL [facility] Interpretation and review of laboratory results Abnormal [facility] Ketones (U) [Mass/Vol] Negative Negat zenia mg/dL [facility] Leukocyte esterase Test strip Ql (U) Negative Negative Emma/uL [facility] Nitrite Ql (U) Negative Negative [facility] pH (U) 5.5 [pH] 5.0 - 8.0 pH [facility] Protein (U) [Mass/Vol] Negative Negat zenia mg/dL [facility] Specific gravity (U) [Rel density] 1.002 Low 1.005 - 1.030 [facility] Urobilinogen (U) [Mass/Vol] Normal Normal (0-1) mg/dL [facility] Laboratory - Chemistry and C hemistry - challengeon 04-07-2023 Elastase.pancreatic (Stl) [Mass/Mass] >800 100 - PINF ug/g [facility] Comment on above: REFERENCE INTERVAL: Pancreatic Elastase Fecal by Immunoassay Less than 100 ug/g............Severe insufficiency 100 - 199 ug/g................Moderate insufficiency 200 ug/g or greater...........Normal INTERPRETIVE INFORMATION: Pancreatic Elastase Fecal by Immunoassay Reference intervals do not apply for infants less than one month old. Performed by [facility], [address] [place] [id number] [email or web address], Ana Heredia MD, PHD, Lab. Director Glucose [Mass/Vol] 114 mg/dL High 70 - 100 mg/dL [facility] Laboratory - Serology - non- microOrdered By: Adama Arteaga on 04-07-2023 Gliadin IgG IA Qn (S) U/ml NINF - 15.0 U/ml [facility] tTG IgA IA Qn (S) U/mL NINF - 15. 0 U/mL [facility] tTG IgA IA Qn (S) U/mL NINF - 15. 0 U/mL [facility] No Panel Informationon 04-07 [facility] Interpretation and review of laboratory results Abnormal [facility] Performed by: [facility], [address] [place] [address] CLIA ID: [id number] [facility] No Panel InformationOrdered By: Adama Arteaga on 04-07-2023 Deam Gliadin Peptide IgA 0.3 U/ml NINF - 15.0 U/ml [facility] Interpretation and review of laboratory results Normal [facility] TTG Interpretive Information: Results of 15 Units/mL or greater = POSITIVE Results Less than 15 Units/mL = NEGATIVE Deam Gliadin Peptide Interpretive Information: Results of 15 Units/mL or greater = POSITIVE Results Less than 15 Units/mL = NEGATIVE [facility] HIV 1+2 Ab+HIV1 p24 Ag IA Ql on 04-06-2023 Interpretation and review of laboratory results Normal [facility] Laboratory - Chemistry and C hemistry - challengeon 04-06-2023 Glucose [Mass/Vol] 164 mg/dL High 70 - 100 mg/dL [facility] Laboratory - Drug toxicology on 04-06-2023 PHENobarbital [Mass/Vol] 32.1 ug/mL 10.0 - 40.0 ug/mL [facility] Laboratory - Microbiology an d Antimicrobial susceptibilityon 04-06-2023 HIV 1+2 Ab+HIV1 p24 Ag IA Ql Non-Reactive Nonreactive [facility] Comment on above: The specimen was non -reactive for HIV-1 and HIV-2 antibodies and p24 antigen using an FDA-cleared 4th generation HIV test. Based on this non-reactive screen result, further reflexive testing was not indicated and was, therefore, not performed. No Panel Informationon 04-06 Interpretation and review of laboratory results Abnormal [facility] Performed by: [facility], [address] [place] [address] CLIA ID: [id number] [facility] Interpretation and review of laboratory results Normal [facility] No Panel InformationOrdered By: Beto De La O on 04-06-2023 Case Report Peripheral Smear Corey e: [id number] Authorizing Provider: Inder Stein DO Collected: 04/04/2023 1445 Ordering Location: [address] Received: 04/04/2023 1549 Pathologist: Beto De La O DO Specimen: Blood, Venous [facility] Phone: Pathologist Interpretation Location [facility], [address] [place] [address], CLIA: [id number]; Joint Commission: [id number]; CAP: [id number] [facility] Phone: Pathology report final diagnosis Narrative w5qelZPtOWPxlNJgUKKvUwzpg vBtIZNtmALbN9ZvgvivOIgdVV 9oNL0ygIxetEKfcLVmZKSxJnW uj9rpv749iXNos8xdWYGZFZgc APJNIGr0j3zqQRDErM1ln6y4p MxfUmLfA998vlkaxkXORUn0bU jdSwRyI0rsG1HvvmmbJ485x6c wv9lkpcZkdPN4tVlrMcazeGM0 gXSaiAZ1YVpsb3SmkFgssZtyN SrtRHUePtYaKGyvu9Q3VL4fpN D6WNztRII1DRpsu0SpTO9yZLj 4HMesx3RphZFfoFK4ZOlmh9Wf AREugXofCAWlpN5wGbVyWIdrg mVsbmZjbjIzXGxldmVsamMwXG vidhCco5MerkFnqEV0XPdeugZ onDB1dZagREQvpB3lSEXtHU53 zNhxkUV7VApovY5xJPZdH25pA jFcbGkzNjBcZmktMzYwfXtcbG lzdGxldmVsXGxldmVsbmZjMjN lgWM9FRnwSlDgMiBppGO7AGhk CjIqgBL1ONoxxLEbzIP2QDhvr UD5TWv1SSo9NEjyNG01tLhowX I6JQsozM7uIJDwO35dCjKzhFq zPWsnOTEeDNO6JK57LVdbe7Jv UEOycMumDGZpvR1nFiHpSAcme mVsbmZjbjIzXGxldmVsamMwXG pjgmMww7YowlIyjEG1OThgotU stXS2yQzsGKTxeA5pKIV2YZ78 vXbmyBS5JUadyO7hSKChL88xZ xKyhIskCGNmXPWvUXQ6VI79AJ ldo7SeOYBjiVqeVPSbfL0qMjF zXGxldmVsbmZjbjIzXGxldmVs plSzZQtlihBlf3VhvgDlkNZ9G JjofqUqeLP1cIilWFKtuD7qKD BvIS02oBesbMI2BEgxaT0bZYL lY21jGsZfsIgeKXJaLZCqKHO8 EP68XBmit5XaHEIhnXmhBSHav M1eQtAiSYsizsCkelLqejPwCK lbtkNjdoGhMAayaqQpi1SoikB xrSZ4FFxmkwVajIY5iWjuOLCq E782SEfonpYnqoCdWxCslvo3P AFmZUuiPjK8FXsyuE9rOwL6q2 ayeLM1fKO7DUsmjMP9MEyfGrF uJ9bqAEHqcJ6cS35vY6mjPMFi uZrsEDnbHRDjiFW2GWO7DKLcb 1xsZXZlbHRleHRcJzAxXHUtMz kyOSA/K290UFehwrCbirHvOpO ejuo1EIRvOLccKmd0ECuqjC4s LzN8i2hvcMG0cHG3TTzxzHO1D VbzRrRhA1qdBDUfdC2fY51uO7 ncJWIwsYszZZryUVMdgGC0XCN 8CYJbs9ydJKFgkETsgEAfHgNv XHUtMzkxMyA/Y268JJofhhLsh hDqSvPnzut8UVJrYNepSGO8XO otmB5gReW7x0ehpKV6bYG6PWo ejGE4DUsjPhKxU3qkEZGrjJ3l R31kG7nzFDCheTyvYPkzXZQty WT6XKL8MRKxi4svXFEmsPEhfL BoWaBzvte9g6vnWJYvrQ46aOY wnfQ2kLxoIpuzlGS7CWKuThfw MzYwfXtcbGlzdGxldmVsXGxld cLchnSdJkCppGZ5RDjpPoYgNj AefOU7BUhbXwRkhZA7KTkoePO dxXY4VHnkfGV9QZo2XYf4OYoa NWd9HST1MxfkFuj7z1qpZSHku L03tLWlyrX7xFqnZ3clrAJqMg OaOuqfEoPowM61r6krCUpof0Z soyLqykkpZSHkFsbzc3ifOSsp v3YuciZkrnnvEAkdySF2nKJ3O OMoSXTfBhSlbMfvqO04NNXifX VnE621coMaHEzqWA59JAZxpLI qveTcJaKtIGVaoQLasND4CAQb JG3uusiuKGblEUceUPPsrlK1X ZMruUYxC7MeIEWyKM4azicxTQ U3OQrdODBhCGN8DfQoVTTbx0C huzb0UyQyqRHsGJrjtBZjzuwo czIwIFBlcmlwaGVyYWwgQmxvb 2VwL60eOXM4CFagXMTymLzmFu BrQpjeIiGfFTistlR2NLvyxkY aqBi9wTOoxKokjF9mQxTfTGOB DI2bkWPneRNnuQElj0a3rDJhJ ZCai4DwpafdKWOfb3dvsasmPI Mnd4r2dYMygmI1mAWexSZdjGP bAX6yKOQjz64nnQCsSHw1aZGm z8GgtfgjCGFcCWUap8P8eDkvR K2jer7mA0sau80fOiBscyNknZ GnOHGqMNM9mCHprVCyL6l8s2W vxcobGaQceTUjFDM1zJEgs8Q4 YYiupaYjJGEcu8Jju9KbAKMwq 35kHLdrh3YyNG94nZBalScoqj DvXDTvFnzdfMYiQ4jzukeybN9 oCYA7dZ4wHHR7yCLwQUR4UHOz iSI8FPUfPBDpYTK9jaYzpxLzx 7BhyN6pqO4lJO8dTKdzdEXvXZ FgFMMsuSJ8OXFml5DrmZB7fW0 zJJ4zQGCdsRKtk4AnOXIat45s VEJsinTArXJboBUzPO5qQDX5w 5yaHY64uO9ii2gqd1fnVRTmDE Ojj7YvhYVdbqUfPtdsRY7ofSV yfQ== [employer] Work Phone: [facility] Work Phone: Basic metabolic 1998 panelon 04-04-2023 Anion gap [Moles/Vol] 9 mmol/L 3 - 13 mmol/L [email or web address] Calcium [Mass/Vol] 8.3 mg/dL Low 8.4 - 10. 4 mg/dL [email or web address] Chloride [Moles/Vol] 99 mmol/L 98 - 10 7 mmol/L [facility] CO2 [Moles/Vol] 21 mmol/L Low 22 - 30 mmol/L [facility] Creatinine [Mass/Vol] 0.82 mg/dL 0.66 - 1.25 mg/dL [facility] GFR/1.73 sq M.predicted MDRD (S/P/Bld) [Vol rate/Area] - PINF [facility] Comment on above: Calculation based on the Chronic Kidney Disease Epidemiology Collaboration (CKD-EPI) equation refit without adjustment for race Glucose [Mass/Vol] 188 mg/dL High 70 - 100 mg/dL [facility] Interpretation and review of laboratory results Abnormal [facility] Potassium [Moles/Vol] 3.6 mmol/L 3.5 - 5.1 mmol/L [facility] Sodium [Moles/Vol] 128 mmol/L Low 135 - 145 mmol/L [facility] Urea nitrogen [Mass/Vol] 7 mg/dL Low 9 - 20 mg/dL [facility] Cobalamin (Vitamin B12) [Mas s/Vol]on 04-04-2023 Interpretation and review of laboratory results Normal [facility] Gastrointestinal pathogens p mac SHANE+probe (Stl)Ordered By: Albert Reid on 04-04-2023 Adenovirus F 40/41 Not detected Not Detected [facility] Astrovirus Not detected Not Detected [facility] Campylobacter Not detected Not Detected [facility] Cryptosporidium Not detected Not Detected [facility] Cyclospora cayetanensis Not detected Not Detected [facility] Entamoeba histolytica Not detected Not Detected [facility] Enterotoxigenic E coli (ETEC) Not detected Not Detected [facility] Giardia lamblia Not detected Not Detected [facility] Interpretation and review of laboratory results Normal [facility] Norovirus GI/GII Not detected Not Detected [facility] Plesiomonas shigelloides Not detected Not Detected [facility] Rotavirus A Not detected Not Detected [facility] Salmonella Not detected Not Detected [facility] Sapovirus Not detected Not Detected [facility] Shiga toxin-producing E coli (STEC) Not detected Not Detected [facility] Shigella/Enteroinvasiv e E coli (EIEC) Not detected Not Detected [facility] Vibrio cholerae Not detected Not Detected [facility] Vibrio species Not detected Not Detected [facility] Yersinia enterocolitica Not detected Not Detected [facility] Methodology: Multipl ex PCR [facility] HCV Ab IA QlOrdered By: Luisana Ayala on 04-04-2023 Interpretation and review of laboratory results Abnormal [facility] HbA1c (Bld) [Mass fraction]o n 04-04-2023 Average glucose Estimated from glycated hemoglobin (Bld) [Mass/Vol] 88 mg/dL [facility] Laboratory - Chemistry and C hemistry - challengeon 04-04-2023 Cobalamin (Vitamin B12) [Mass/Vol] 605 pg/mL 239 - 931 pg/mL [facility] TSH Qn 0.787 m[IU]/L [facility] Beta hydroxybutyrate [Mass/Vol] 5.35 mg/dL High 0.20 - 2.81 mg/dL [facility] Laboratory - Hematology and Cell countson 04-04-2023 HbA1c (Bld) [Mass fraction] 4.7 % NINF - 5.7 % [facility] Comment on above: Normal less than 5.7 % Prediabetes 5.7% to 6.4% Diabetes 6.5% or higher --HgbA1C levels may not be accurate in patients who have renal disease, received recent blood transfusions, are anemic, or who have dyshemoglobinemia. Laboratory - Microbiology an d Antimicrobial susceptibilityOrdered By: Quynh Ayala on 04-04-2023 HCV Ab IA Ql Detected Abnormal Not Detected [facility] Comment on above: Patients with DETECT ED Hepatitis C Ab results should have a new specimen submitted for supplemental testing with a Hepatitis C Quantitative RNA assay (viral load), if clinically indicated. No Panel Informationon 04-04 Interpretation and review of laboratory results Abnormal [facility] TSH Qnon 04-04-2023 Interpretation and review of laboratory results Normal [facility] XR Chest Single viewon 04-04 No acute process. Report Dictated on Electronically Signed By: Frankie Lambert Electronically Signed Date/Time: 04/04/2023 1:49 PM T [facility] Patient Name: WOODY NI : [...] of the spine and shoulders are present. [facility] Frankie Lambert DO - 04/04/2023 [facility] 1960 [id number] Exam Date/Time: 04/04/2023 08:56 Procedure: XR CHEST [...] Signed Date/Time: 04/04/2023 1:49 PM EDT [facility] Radiology Study observation (narrative) [email or web address] XR Chest Single viewOrdered By: Frankie Lambert on 04-04-2023 [email or web address] Work Phone: CBC W Auto Differential pane l (Bld)Ordered By: Perla Garcia on 04-02-2023 Basophils (Bld) [#/Vol] 0.0 10*3/uL 0.0 - 0.2 10*3/uL [email or web address] Basophils/100 WBC (Bld) 0.0 % 0.0 - 2.0 % [facility] Eosinophils (Bld) [#/Vol] 0.0 10*3/uL 0.0 - 0.5 10*3/uL [email or web address] Eosinophils/100 WBC (Bld) 0.0 % Low 1.0 - 6.0 % [facility] Erythrocyte distribution width (RBC) [Ratio] 13.0 % 11.5 - 14.5 % [facility] Hematocrit (Bld) [Volume fraction] 31.7 % Low 40.0 - 52.0 % [facility] Hemoglobin (Bld) [Mass/Vol] 11.4 g/dL Low 13.0 - 18.0 g/dL [facility] Immature granulocytes (Bld) [#/Vol] 0.0 10*3/uL NINF - 0.0 10*3/uL [facility] Immature granulocytes/100 WBC (Bld) 0.8 % High NINF - 0.0 % [facility] Interpretation and review of laboratory results Abnormal [facility] Lymphocytes (Bld) [#/Vol] 0.7 10*3/uL Low 1.0 - 4.3 10*3/uL [facility] Lymphocytes/100 WBC (Bld) 28.7 % 20.0 - 40.0 % [facility] MCH (RBC) [Entitic mass] 34.2 pg High 26.0 - 34.0 pg [facility] MCHC (RBC) [Mass/Vol] 36.0 % 32.0 - 36.0 % [facility] MCV (RBC) [Entitic vol] 95.2 fL 80.0 - 98.0 fL [facility] Monocytes (Bld) [#/Vol] 0.1 10*3/uL 0.0 - 0.8 10*3/uL [facility] Monocytes/100 WBC (Bld) 4.3 % 2.0 - 10.0 % [facility] Neutrophils (Bld) [#/Vol] 1.7 10*3/uL Low 1.8 - 7.0 10*3/uL [facility] Neutrophils/100 WBC (Bld) 66.2 % 40.0 - 80.0 % [facility] Platelet mean volume (Bld) [Entitic vol] 9.0 fL 7.4 - 12.4 fL [facility] Platelets (Bld) [#/Vol] 93 10*3/uL Low 140 - 440 10*3/uL [facility] RBC (Bld) [#/Vol] 3.33 10*6/uL Low 4.40 - 5.9 0 10*6/uL [facility] WBC (Bld) [#/Vol] 2.5 10*3/uL Low 3.6 - 10.7 10*3/uL [facility] CRP [Mass/Vol]on 04-02-2023 Interpretation and review of laboratory results Normal [facility] Comprehensive metabolic 1998 panelon 04-02-2023 Albumin [Mass/Vol] 4.3 g/dL 3.5 - 5.0 g/dL [facility] ALP [Catalytic activity/Vol] 79 U/L 38 - 126 U/L [facility] ALT [Catalytic activity/Vol] 89 U/L High 0 - 49 U/L [facility] Anion gap [Moles/Vol] 16 mmol/L High 3 - 13 mmol/L [facility] AST [Catalytic activity/Vol] 208 U/L High 15 - 46 U/L [facility] Bilirubin [Mass/Vol] 0.7 mg/dL 0.2 - 1 .3 mg/dL [facility] Calcium [Mass/Vol] 8.8 mg/dL 8.4 - 10. 4 mg/dL [facility] Chloride [Moles/Vol] 100 mmol/L 98 - 10 7 mmol/L [facility] CO2 [Moles/Vol] 18 mmol/L Low 22 - 30 mmol/L [facility] Creatinine [Mass/Vol] 0.86 mg/dL 0.66 - 1.25 mg/dL [facility] GFR/1.73 sq M.predicted MDRD (S/P/Bld) [Vol rate/Area] - PINF [facility] Comment on above: Calculation based on the Chronic Kidney Disease Epidemiology Collaboration (CKD-EPI) equation refit without adjustment for race Glucose [Mass/Vol] 111 mg/dL High 70 - 100 mg/dL [facility] Potassium [Moles/Vol] 4.3 mmol/L 3.5 - 5.1 mmol/L [facility] Protein [Mass/Vol] 7.3 g/dL 6.3 - 8.2 g/dL [facility] Sodium [Moles/Vol] 134 mmol/L Low 135 - 145 mmol/L [facility] Urea nitrogen [Mass/Vol] 4 mg/dL Low 9 - 20 mg/dL [facility] Ethanol (Bld) [Mass/Vol]Orde red By: Diane Urbina on 04-02-2023 Ethanol [Mass/Vol] 0.352 g/dL Critically high 0.000 - 0.010 g/dL [facility] Interpretation and review of laboratory results Abnormal [facility] Laboratory - Chemistry and C hemistry - challengeon 04-02-2023 CO2 [Moles/Vol] 19.0 mmol/L Low 24.0 - 28.0 mmol/L [facility] HCO3 (Bld) [Moles/Vol] 18.4 mmol/L Low 23.0 - 27.0 mmol/L [facility] Oxygen (Bld) [Partial pressure] 168 mm[Hg] High [facility] pH (Bld) 7.363 [pH] 7.330 - 7.430 [facility] CRP [Mass/Vol] mg/L NINF - 10.0 mg/L [facility] Lipase [Catalytic activity/Vol] 365 U/L High 23 - 300 U/L [facility] Laboratory - Drug toxicology Ordered By: Ashly Okeefe on 04-02-2023 Amphetamines Screen method >1000 ng/mL Ql (U) Negative [facility] Barbiturates Screen method >200 ng/mL Ql (U) Positive [facility] Benzodiazepines Ql (U) Negative [facility] Methadone Screen Ql (U) Negative [facility] Opiates Screen Ql (U) Negative [facility] oxyCODONE Ql (U) Negative [facility] Phencyclidine Ql (U) Negative [facility] Laboratory - Microbiology an d Antimicrobial susceptibilityon 04-02-2023 SARS-CoV-2 (COVID-19) Ag IA.rapid Ql (Resp) Negative Negative [facility] Comment on above: A negative result do es not rule out the possibility of SARS-CoV-2 infection. NAAT-based methods should be considered for symptomatic patients presenting greater than seven days after onset of symptoms. Method: Lateral flow immunoassay. Fact sheets for healthcare providers and patients can be found at the following sites: https://www.fda.gov/media/665378/download https://www.fda.gov/media/869302/download No Panel InformationOrdered By: Ashly Okeefe on 04-02-2023 COCAINE METAB. SCREEN Negative [facility] The expected value f or all [...] is needed, request confirmation under separate order. [facility] No Panel Informationon 04-02 BASE EXCESS -7.0 mmol/L Low -3.0 - 3.0 mmol/L [facility] Interpretation and review of laboratory results Abnormal [facility] pCO2 32 Low [facility] Source Of Oxygen Room Air [facility] Interpretation and review of laboratory results Abnormal [facility] Radiology Study observation (narrative) [facility] SARS-CoV-2 (COVID-19) Ag IA. rapid Ql (Resp)on 04-02-2023 Interpretation and review of laboratory results Normal [facility] US Abdomenon 04-02-2023 1. Diffuse hepatic steatosis. No acute finding. Report Dictated on Electronically Signed By: Ruperto Wheeler Electronically Signed Date/Time: 04/02/2023 5:54 PM [facility] 1960 [id number] Exam Date/Time: 04/02/2023 17:47 Procedure: US ABDOMEN [...] difficult to visualize secondary to bowel gas. [facility] Ruperto Wheeler MD - 04/02/2023 Patient Name: WOODY IN : 1960 [facility]#: [id number] Exam Date/Time: 04/02/2023 17:47 Procedure: US ABDOMEN [...] Electronically Signed Date/Time: 04/02/2023 5:54 PM EDT [email or web address] US AbdomenOrdered By: Ruperto díaz on 04-02-2023 [email or web address] Work Phone: Urinalysis complete panel (U )on 04-02-2023 Bilirubin Ql (U) Negative Negative mg/dL [email or web address] Clarity (U) Clear Clear [email or web address] Color (U) Colorless Lt. Yellow [email or web address] Glucose Ql (U) Normal Normal (<70) mg/dL [email or web address] Hemoglobin Ql (U) Negative Negative mg/dL [email or web address] Interpretation and review of laboratory results Abnormal [facility] Ketones (U) [Mass/Vol] Negative Negat zenia mg/dL [facility] Leukocyte esterase Test strip Ql (U) Negative Negative Emma/uL [email or web address] Nitrite Ql (U) Negative Negative [facility] pH (U) 5.0 [pH] 5.0 - 8.0 pH [facility] Protein (U) [Mass/Vol] Negative Negat zenia mg/dL [facility] Specific gravity (U) [Rel density] 1.002 Low 1.005 - 1.030 [facility] Urobilinogen (U) [Mass/Vol] Normal Normal (0-1) mg/dL [facility] Vital signson 04-02-2023 Oxygen saturation in Blood 99.0 % High 60.0 - 80.0 % [facility] XR Chest View and Abdomen [place] and [place] 04-02-2023 1. No acute finding. Possible ingested pill or other foreign body lower right hemipelvis. Report Dictated on Electronically Signed By: Ruperto Wheeler Electronically Signed Date/Time: 04/02/2023 6:15 PM EDT [facility] [employer] [facility] Patient Name: WOODY NI : 1960 [...] intraperitoneal gas seen. Nonspecific bowel gas pattern. [place] density in the lower right hemipelvis could represent an ingested pill or other foreign body measuring about 12 x 4.5 mm. [facility] Ruperto Wheeler MD - 04/02/2023 Patient [...] intraperitoneal gas seen. Nonspecific bowel gas pattern. [place] density in the lower right hemipelvis could represent an ingested pill or other foreign body measuring about 12 x 4.5 mm. IMPRESSION: 1. No acute finding. Possible ingested pill or other foreign body lower right hemipelvis. Report Dictated on Electronically Signed By: Ruperto Wheeler Electronically Signed Date/Time: 04/02/2023 6:15 PM EDT [email or web address] XR Chest View and Abdomen [place] and UprightOrdered By: Ruperto Wheeler on 04-02-2023 [email or web address] Work Phone: Basic metabolic 1998 panelon 02-14-2023 Anion gap [Moles/Vol] 0 mmol/L Low 3 - 13 mmol/L [email or web address] Calcium [Mass/Vol] 9.6 mg/dL 8.4 - 10. 4 mg/dL [email or web address] Chloride [Moles/Vol] 103 mmol/L 98 - 10 7 mmol/L [email or web address] CO2 [Moles/Vol] 24 mmol/L 22 - 30 mmol/L [email or web address] Creatinine [Mass/Vol] 1.23 mg/dL 0.66 - 1.25 mg/dL [email or web address] GFR/1.73 sq M.predicted MDRD (S/P/Bld) [Vol rate/Area] 66.0 mL/min/{1.73_m2} - PINF [facility] Comment on above: Calculation based on the Chronic Kidney Disease Epidemiology Collaboration (CKD-EPI) equation refit without adjustment for race Glucose [Mass/Vol] 91 mg/dL 70 - 100 mg/dL [facility] Interpretation and review of laboratory results Abnormal [email or web address] Potassium [Moles/Vol] 4.4 mmol/L 3.5 - 5.1 mmol/L [email or web address] Sodium [Moles/Vol] 128 mmol/L Low 135 - 145 mmol/L [email or web address] Urea nitrogen [Mass/Vol] 15 mg/dL 9 - 20 mg/dL [facility] [email or web address] Laboratory - Chemistry and C hemistry - challengeon 02-13-2023 Sodium [Moles/Vol] 128 mmol/L Low 135 - 145 mmol/L [facility] Sodium (24H U) [Mass/Vol] mmol/L Low 30 - 90 mmol/L [facility] [facility] Sodium [Moles/Vol] 125 mmol/L Low 135 - 145 mmol/L [facility] No Panel Informationon 02-13 Interpretation and review of laboratory results Abnormal [facility] Interpretation and review of laboratory results Abnormal [facility] Interpretation and review of laboratory results Abnormal [facility] No Panel InformationOrdered By: Aminta Ackreman on 02-13-2023 Interpretation and review of laboratory results Abnormal [facility] OSMOLALITY, URINE 111 Low [facility] Basic metabolic 1998 panelon 02-12-2023 Anion gap [Moles/Vol] 5 mmol/L 3 - 13 mmol/L [facility] Calcium [Mass/Vol] 8.3 mg/dL Low 8.4 - 10. 4 mg/dL [facility] Chloride [Moles/Vol] 100 mmol/L 98 - 10 7 mmol/L [facility] CO2 [Moles/Vol] 20 mmol/L Low 22 - 30 mmol/L [facility] Creatinine [Mass/Vol] 1.36 mg/dL High 0.66 - 1.25 mg/dL [facility] GFR/1.73 sq M.predicted MDRD (S/P/Bld) [Vol rate/Area] 58.5 mL/min/{1.73_m2} Low - PINF [facility] Comment on above: Calculation based on the Chronic Kidney Disease Epidemiology Collaboration (CKD-EPI) equation refit without adjustment for race Glucose [Mass/Vol] 104 mg/dL High 70 - 100 mg/dL [facility] Interpretation and review of laboratory results Abnormal [facility] Potassium [Moles/Vol] 4.5 mmol/L 3.5 - 5.1 mmol/L [facility] Sodium [Moles/Vol] 125 mmol/L Low 135 - 145 mmol/L [facility] Urea nitrogen [Mass/Vol] 15 mg/dL 9 - 20 mg/dL [facility] CBC panel Auto (Bld)Ordered By: Sandy Nance on 02-12-2023 Erythrocyte distribution width (RBC) [Ratio] 13.7 % 11.5 - 14.5 % [facility] Hematocrit (Bld) [Volume fraction] 28.3 % Low 40.0 - 52.0 % [facility] Hemoglobin (Bld) [Mass/Vol] 9.8 g/dL Low 13.0 - 18.0 g/dL [facility] Interpretation and review of laboratory results Abnormal [facility] MCH (RBC) [Entitic mass] 33.9 pg 26.0 - 34.0 pg [facility] MCHC (RBC) [Mass/Vol] 34.8 % 32.0 - 36.0 % [facility] MCV (RBC) [Entitic vol] 97.4 fL 80.0 - 98.0 fL [facility] Platelet mean volume (Bld) [Entitic vol] 8.2 fL 7.4 - 12.4 fL [facility] Platelets (Bld) [#/Vol] 79 10*3/uL Low 140 - 440 10*3/uL [facility] RBC (Bld) [#/Vol] 2.91 10*6/uL Low 4.40 - 5.9 0 10*6/uL [facility] WBC (Bld) [#/Vol] 2.3 10*3/uL Low 3.6 - 10.7 10*3/uL [facility] Comprehensive metabolic 1998 panelon 02-12-2023 Albumin [Mass/Vol] 3.4 g/dL Low 3.5 - 5.0 g/dL [facility] ALP [Catalytic activity/Vol] 57 U/L 38 - 126 U/L [facility] ALT [Catalytic activity/Vol] 86 U/L High 0 - 49 U/L [facility] Anion gap [Moles/Vol] 2 mmol/L Low 3 - 13 mmol/L [facility] AST [Catalytic activity/Vol] 123 U/L High 15 - 46 U/L [facility] Bilirubin [Mass/Vol] 0.7 mg/dL 0.2 - 1 .3 mg/dL [facility] Calcium [Mass/Vol] 8.0 mg/dL Low 8.4 - 10. 4 mg/dL [facility] Chloride [Moles/Vol] 100 mmol/L 98 - 10 7 mmol/L [facility] CO2 [Moles/Vol] 23 mmol/L 22 - 30 mmol/L [facility] Creatinine [Mass/Vol] 1.53 mg/dL High 0.66 - 1.25 mg/dL [facility] GFR/1.73 sq M.predicted MDRD (S/P/Bld) [Vol rate/Area] 50.8 mL/min/{1.73_m2} Low - PINF [facility] Comment on above: Calculation based on the Chronic Kidney Disease Epidemiology Collaboration (CKD-EPI) equation refit without adjustment for race Glucose [Mass/Vol] 94 mg/dL 70 - 100 mg/dL [facility] Interpretation and review of laboratory results Abnormal [facility] Potassium [Moles/Vol] 4.0 mmol/L 3.5 - 5.1 mmol/L [facility] Protein [Mass/Vol] 5.8 g/dL Low 6.3 - 8.2 g/dL [facility] Sodium [Moles/Vol] 124 mmol/L Low 135 - 145 mmol/L [facility] Urea nitrogen [Mass/Vol] 13 mg/dL 9 - 20 mg/dL [facility] Free T3 [Mass/Vol]on 023 Interpretation and review of laboratory results Normal [facility] Free T4 [Mass/Vol]on 023 Free T4 Dialysis [Mass/Vol] 1.83 ng/dL 0.78 - 2.19 ng/dL [facility] Interpretation and review of laboratory results Normal [facility] Laboratory - Chemistry and C hemistry - challengeon 02-12-2023 Sodium [Moles/Vol] 124 mmol/L Low 135 - 145 mmol/L [facility] Free T3 [Mass/Vol] 2.81 pg/mL 2.77 - 5. 27 pg/mL [facility] Sodium [Moles/Vol] 124 mmol/L Low 135 - 145 mmol/L [facility] No Panel Informationon 02-12 Interpretation and review of laboratory results Abnormal [facility] Interpretation and review of laboratory results Abnormal [facility] US Abdomenon 02-12-2023 1. No acute sonograp hic abnormality identified. 2. Hepatic steatosis. 3. Thinning of the renal cortex, which could relate to medical renal disease. Report Dictated on Electronically Signed By: Cuco Melara Electronically Signed Date/Time: 02/12/2023 9:44 AM [facility] RADIOLOGY SYSTEM [facility] : 1960 [id number] Exam Date/Time: 02/12/2023 08:56 Procedure: US ABDOMEN [...] Visualized portions are unremarkable. OTHER FINDINGS None. [facility] RADIOLOGY SYSTEM Cuco Melara MD - 02/12/2023 [...] Electronically Signed Date/Time: 02/12/2023 9:44 AM EDT [email or web address] Radiology Study observation (narrative) [facility] US AbdomenOrdered By: Remigio Melara on 02-12-2023 [employer] Work Phone: Basic metabolic 1998 panelon 02-11-2023 Anion gap [Moles/Vol] 8 mmol/L 3 - 13 mmol/L [email or web address] Calcium [Mass/Vol] 7.6 mg/dL Low 8.4 - 10. 4 mg/dL [email or web address] Chloride [Moles/Vol] 94 mmol/L Low 98 - 10 7 mmol/L [facility] CO2 [Moles/Vol] 20 mmol/L Low 22 - 30 mmol/L [facility] Creatinine [Mass/Vol] 1.36 mg/dL High 0.66 - 1.25 mg/dL [facility] GFR/1.73 sq M.predicted MDRD (S/P/Bld) [Vol rate/Area] 58.5 mL/min/{1.73_m2} Low - PINF [facility] Comment on above: Calculation based on the Chronic Kidney Disease Epidemiology Collaboration (CKD-EPI) equation refit without adjustment for race Glucose [Mass/Vol] 87 mg/dL 70 - 100 mg/dL [facility] Interpretation and review of laboratory results Abnormal [facility] Potassium [Moles/Vol] 4.2 mmol/L 3.5 - 5.1 mmol/L [facility] Sodium [Moles/Vol] 121 mmol/L Low 135 - 145 mmol/L [facility] Urea nitrogen [Mass/Vol] 13 mg/dL 9 - 20 mg/dL [facility] Slightly hemolyzed [facility] Anion gap [Moles/Vol] 10 mmol/L 3 - 13 mmol/L [facility] Calcium [Mass/Vol] 8.4 mg/dL 8.4 - 10. 4 mg/dL [facility] Chloride [Moles/Vol] 88 mmol/L Low 98 - 10 7 mmol/L [facility] CO2 [Moles/Vol] 21 mmol/L Low 22 - 30 mmol/L [facility] Creatinine [Mass/Vol] 1.35 mg/dL High 0.66 - 1.25 mg/dL [facility] GFR/1.73 sq M.predicted MDRD (S/P/Bld) [Vol rate/Area] 59.0 mL/min/{1.73_m2} Low - PINF [facility] Comment on above: Calculation based on the Chronic Kidney Disease Epidemiology Collaboration (CKD-EPI) equation refit without adjustment for race Glucose [Mass/Vol] 126 mg/dL High 70 - 100 mg/dL [facility] Interpretation and review of laboratory results Abnormal [facility] Potassium [Moles/Vol] 3.8 mmol/L 3.5 - 5.1 mmol/L [facility] Sodium [Moles/Vol] 120 mmol/L Low 135 - 145 mmol/L [facility] Urea nitrogen [Mass/Vol] 13 mg/dL 9 - 20 mg/dL [facility] C. difficile toxin genes SHANE +probe Ql (Stl)on 02-11-2023 C. difficile toxin PCR Not detected Not Detecte d [facility] Interpretation and review of laboratory results Normal [facility] C. difficile infecti on is unlikely to be present. Methodology: Real-time PCR [facility] CBC W Auto Differential pane l (Bld)Ordered By: Montrell Charles on 02-11-2023 Basophils (Bld) [#/Vol] 0.0 10*3/uL 0.0 - 0.2 10*3/uL [facility] Basophils/100 WBC (Bld) 0.5 % 0.0 - 2.0 % [facility] Eosinophils (Bld) [#/Vol] 0.0 10*3/uL 0.0 - 0.5 10*3/uL [facility] Eosinophils/100 WBC (Bld) 0.6 % Low 1.0 - 6.0 % [facility] Erythrocyte distribution width (RBC) [Ratio] 13.5 % 11.5 - 14.5 % [facility] Hematocrit (Bld) [Volume fraction] 28.1 % Low 40.0 - 52.0 % [facility] Hemoglobin (Bld) [Mass/Vol] 9.4 g/dL Low 13.0 - 18.0 g/dL [facility] Interpretation and review of laboratory results Abnormal [facility] Lymphocytes (Bld) [#/Vol] 0.6 10*3/uL Low 1.0 - 4.3 10*3/uL [facility] Lymphocytes/100 WBC (Bld) 24.3 % 20.0 - 40.0 % [facility] MCH (RBC) [Entitic mass] 32.7 pg 26.0 - 34.0 pg [facility] MCHC (RBC) [Mass/Vol] 33.5 % 32.0 - 36.0 % [facility] MCV (RBC) [Entitic vol] 97.9 fL 80.0 - 98.0 fL [facility] Monocytes (Bld) [#/Vol] 0.4 10*3/uL 0.0 - 0.8 10*3/uL [facility] Monocytes/100 WBC (Bld) 15.9 % High 2.0 - 10.0 % [facility] Neutrophils (Bld) [#/Vol] 1.4 10*3/uL Low 1.8 - 7.0 10*3/uL [facility] Neutrophils/100 WBC (Bld) 58.7 % 40.0 - 80.0 % [facility] Nucleated RBC/100 WBC (Bld) [Ratio] 0.1 % [facility] Platelet mean volume (Bld) [Entitic vol] 8.6 fL 7.4 - 12.4 fL [facility] Platelets (Bld) [#/Vol] 77 10*3/uL Low 140 - 440 10*3/uL [facility] RBC (Bld) [#/Vol] 2.87 10*6/uL Low 4.40 - 5.9 0 10*6/uL [facility] WBC (Bld) [#/Vol] 2.4 10*3/uL Low 3.6 - 10.7 10*3/uL [facility] Gastrointestinal pathogens p mac SHANE+probe (Stl)Ordered By: Nikos Mcdonough on 02-11-2023 Adenovirus F 40/41 Not detected Not Detected [facility] Astrovirus Not detected Not Detected [facility] Campylobacter Not detected Not Detected [facility] Cryptosporidium Not detected Not Detected [facility] Cyclospora cayetanensis Not detected Not Detected [facility] Entamoeba histolytica Not detected Not Detected [facility] Enterotoxigenic E coli (ETEC) Not detected Not Detected [facility] Giardia lamblia Not detected Not Detected [facility] Interpretation and review of laboratory results Normal [facility] Norovirus GI/GII Not detected Not Detected [facility] Plesiomonas shigelloides Not detected Not Detected [facility] Rotavirus A Not detected Not Detected [facility] Salmonella Not detected Not Detected [facility] Sapovirus Not detected Not Detected [facility] Shiga toxin-producing E coli (STEC) Not detected Not Detected [facility] Shigella/Enteroinvasiv e E coli (EIEC) Not detected Not Detected [facility] Vibrio cholerae Not detected Not Detected [facility] Vibrio species Not detected Not Detected [facility] Yersinia enterocolitica Not detected Not Detected [facility] Methodology: Multipl ex PCR [facility] Iron and Iron binding capaci ty panelon 02-11-2023 Interpretation and review of laboratory results Abnormal [facility] Iron [Mass/Vol] 89 ug/dL 49 - 181 ug/dL [facility] Iron binding capacity [Mass/Vol] 237 ug/dL Low 261 - 497 ug/dL [facility] Iron saturation [Mass fraction] 38 % 15 - 50 % [facility] Laboratory - Chemistry and C hemistry - challengeon 02-11-2023 Sodium [Moles/Vol] 121 mmol/L Low 135 - 145 mmol/L [facility] Sodium [Moles/Vol] 121 mmol/L Low 135 - 145 mmol/L [facility] TSH Qn 4.885 m[IU]/L High [facility] Sodium (24H U) [Mass/Vol] 7 mmol/L Low 30 - 90 mmol/L [facility] Glucose [Mass/Vol] 89 mg/dL 70 - 100 mg/dL [facility] No Panel Informationon 02-11 Interpretation and review of laboratory results Abnormal [facility] Interpretation and review of laboratory results Abnormal [facility] Interpretation and review of laboratory results Abnormal [facility] Interpretation and review of laboratory results Normal [facility] Performed by: Hanna Hernandez [facility], [address] [place] [id number] CLIA ID: [id number] [facility] No Panel InformationOrdered By: Ophelia Mane on 02-11-2023 Interpretation and review of laboratory results Abnormal [facility] OSMOLALITY, URINE 143 Low [facility] TSH Qnon 02-11-2023 Interpretation and review of laboratory results Abnormal [facility] Urinalysis complete panel (U )on 02-11-2023 Bilirubin Ql (U) Negative Negative mg/dL [facility] Clarity (U) Clear Clear [facility] Color (U) Light Yellow Lt. Yellow [facility] Glucose Ql (U) Normal Normal (<70) mg/dL [facility] Hemoglobin Ql (U) Negative Negative mg/dL [facility] Interpretation and review of laboratory results Normal [facility] Ketones (U) [Mass/Vol] Negative Negat zenia mg/dL [facility] Leukocyte esterase Test strip Ql (U) Negative Negative Emma/uL [facility] Nitrite Ql (U) Negative Negative [facility] pH (U) 6.0 [pH] 5.0 - 8.0 pH [facility] Protein (U) [Mass/Vol] Negative Negat zenia mg/dL [facility] Specific gravity (U) [Rel density] 1.005 1.005 - 1.030 [facility] Urobilinogen (U) [Mass/Vol] Normal Normal (0-1) mg/dL [facility] CBC W Auto Differential pane l (Bld)Ordered By: Ashly Okeefe on 02-10-2023 Basophils (Bld) [#/Vol] 0.0 10*3/uL 0.0 - 0.2 10*3/uL [facility] Basophils/100 WBC (Bld) 0.2 % 0.0 - 2.0 % [facility] Eosinophils (Bld) [#/Vol] 0.0 10*3/uL 0.0 - 0.5 10*3/uL [facility] Eosinophils/100 WBC (Bld) 0.2 % Low 1.0 - 6.0 % [facility] Erythrocyte distribution width (RBC) [Ratio] 12.2 % 11.5 - 14.5 % [facility] Hematocrit (Bld) [Volume fraction] 32.1 % Low 40.0 - 52.0 % [facility] Hemoglobin (Bld) [Mass/Vol] 11.7 g/dL Low 13.0 - 18.0 g/dL [facility] Immature granulocytes (Bld) [#/Vol] 0.1 10*3/uL High NINF - 0.0 10*3/uL [facility] Immature granulocytes/100 WBC (Bld) 1.8 % High NINF - 0.0 % [facility] Interpretation and review of laboratory results Abnormal [facility] Lymphocytes (Bld) [#/Vol] 0.7 10*3/uL Low 1.0 - 4.3 10*3/uL [facility] Lymphocytes/100 WBC (Bld) 13.5 % Low 20.0 - 40.0 % [facility] MCH (RBC) [Entitic mass] 32.9 pg 26.0 - 34.0 pg [facility] MCHC (RBC) [Mass/Vol] 36.4 % High 32.0 - 36.0 % [facility] MCV (RBC) [Entitic vol] 90.2 fL 80.0 - 98.0 fL [facility] Monocytes (Bld) [#/Vol] 0.6 10*3/uL 0.0 - 0.8 10*3/uL [facility] [email or web address] Monocytes/100 WBC (Bld) 12.9 % High 2.0 - 10.0 % [facility] Neutrophils (Bld) [#/Vol] 3.5 10*3/uL 1.8 - 7.0 10*3/uL [facility] Neutrophils/100 WBC (Bld) 71.4 % 40.0 - 80.0 % [facility] Platelet mean volume (Bld) [Entitic vol] 9.6 fL 7.4 - 12.4 fL [facility] Comment on above: MPV is a calculated measurement using platelet volume ratio Platelets (Bld) [#/Vol] 108 10*3/uL Low 140 - 440 10*3/uL [facility] RBC (Bld) [#/Vol] 3.56 10*6/uL Low 4.40 - 5.9 0 10*6/uL [facility] WBC (Bld) [#/Vol] 4.9 10*3/uL 3.6 - 10.7 10*3/uL [facility] Comprehensive metabolic 1998 panelon 02-10-2023 Albumin [Mass/Vol] 4.6 g/dL 3.5 - 5.0 g/dL [facility] ALP [Catalytic activity/Vol] 80 U/L 38 - 126 U/L [facility] ALT [Catalytic activity/Vol] 121 U/L High 0 - 49 U/L [facility] Anion gap [Moles/Vol] 14 mmol/L High 3 - 13 mmol/L [facility] AST [Catalytic activity/Vol] 148 U/L High 15 - 46 U/L [facility] Bilirubin [Mass/Vol] 1.3 mg/dL 0.2 - 1 .3 mg/dL [facility] Calcium [Mass/Vol] 9.0 mg/dL 8.4 - 10. 4 mg/dL [facility] Chloride [Moles/Vol] 84 mmol/L Low 98 - 10 7 mmol/L [facility] CO2 [Moles/Vol] 19 mmol/L Low 22 - 30 mmol/L [facility] Creatinine [Mass/Vol] 1.50 mg/dL High 0.66 - 1.25 mg/dL [facility] GFR/1.73 sq M.predicted MDRD (S/P/Bld) [Vol rate/Area] 52.0 mL/min/{1.73_m2} Low - PINF [facility] Comment on above: Calculation based on the Chronic Kidney Disease Epidemiology Collaboration (CKD-EPI) equation refit without adjustment for race Glucose [Mass/Vol] 151 mg/dL High 70 - 100 mg/dL [facility] Interpretation and review of laboratory results Abnormal [facility] Potassium [Moles/Vol] 3.8 mmol/L 3.5 - 5.1 mmol/L [facility] Protein [Mass/Vol] 7.7 g/dL 6.3 - 8.2 g/dL [facility] Sodium [Moles/Vol] 118 mmol/L Critically low 135 - 1 45 mmol/L [facility] Urea nitrogen [Mass/Vol] 13 mg/dL 9 - 20 mg/dL [facility] Laboratory - Chemistry and C hemistry - challengeon 02-10-2023 Lipase [Catalytic activity/Vol] 152 U/L 23 - 300 U/L [facility] Laboratory - Coagulationon 0 02-10-2023 PT Coag (Bld) [Time] 12.3 s High 9.0 - 12.0 s [facility] Lipase [Catalytic activity/V ol]on 02-10-2023 Interpretation and review of laboratory results Normal [facility] PT Coag (Bld) [Time]on 02-10 INR Coag (PPP) [Relative time] 1.1 {INR} 0.9 - 1.1 [facility] Comment on above: Recommended Anticoag ulant [...] Interpretation and review of laboratory results Abnormal [facility] Urinalysis complete panel (U )on 02-10-2023 Bilirubin Ql (U) Negative Negative mg/dL [facility] Clarity (U) Clear Clear [facility] Color (U) Light Yellow Lt. Yellow [facility] Glucose Ql (U) Normal Normal (<70) mg/dL [facility] Hemoglobin Ql (U) Negative Negative mg/dL [facility] Interpretation and review of laboratory results Normal [facility] Ketones (U) [Mass/Vol] Negative Negat zenia mg/dL [facility] Leukocyte esterase Test strip Ql (U) Negative Negative Emma/uL [facility] Nitrite Ql (U) Negative Negative [facility] pH (U) 5.5 [pH] 5.0 - 8.0 pH [facility] Protein (U) [Mass/Vol] Negative Negat zenia mg/dL [facility] Specific gravity (U) [Rel density] 1.008 1.005 - 1.030 [facility] Urobilinogen (U) [Mass/Vol] Normal Normal (0-1) mg/dL [facility] CNCOon 01-21-2023 CNCO Letter Text Normal [facility] Laboratory - Chemistry and C hemistry - challengeon 01-05-2023 Glucose [Mass/Vol] 169 mg/dL High 70 - 100 mg/dL [facility] Glucose [Mass/Vol] 114 mg/dL High 70 - 100 mg/dL [facility] No Panel Informationon 01-05 Interpretation and review of laboratory results Abnormal [facility] Performed by: [facility], [address] [place] [address] CLIA ID: [id number] [facility] Interpretation and review of laboratory results Abnormal [facility] Performed by: [facility], [address] [place] [address] CLIA ID: [id number] [facility] Basic metabolic 1998 panelon 12-25-2022 Anion gap [Moles/Vol] 5 mmol/L 3 - 13 mmol/L [facility] Calcium [Mass/Vol] 8.7 mg/dL 8.4 - 10. 4 mg/dL [facility] Chloride [Moles/Vol] 102 mmol/L 98 - 10 7 mmol/L [facility] CO2 [Moles/Vol] 23 mmol/L 22 - 30 mmol/L [facility] Creatinine [Mass/Vol] 1.36 mg/dL High 0.66 - 1.25 mg/dL [facility] GFR/1.73 sq M.predicted MDRD (S/P/Bld) [Vol rate/Area] 58.8 mL/min/{1.73_m2} Low - PINF [facility] Comment on above: Calculation based on the Chronic Kidney Disease Epidemiology Collaboration (CKD-EPI) equation refit without adjustment for race Glucose [Mass/Vol] 110 mg/dL High 70 - 100 mg/dL [facility] Interpretation and review of laboratory results Abnormal [facility] Potassium [Moles/Vol] 4.0 mmol/L 3.5 - 5.1 mmol/L [facility] Sodium [Moles/Vol] 131 mmol/L Low 135 - 145 mmol/L [facility] Urea nitrogen [Mass/Vol] 13 mg/dL 9 - 20 mg/dL [facility] Slightly Hemolyzed [facility] Laboratory - Coagulationon 0 12-25-2022 aPTT Coag (PPP) [Time] 24.2 s 20.0 - 30.5 s [facility] INR Coag (PPP) [Relative time] 1.2 {INR} High 0.9 - 1.1 [facility] Comment on above: Recommended Anticoag ulant [...] 12.6 s High 9.0 - 12.0 s [facility] No Panel Informationon 12-25 Interpretation and review of laboratory results Abnormal [facility] Bacteria identified Cx Nom ( U)Ordered By: Ann Perry on 12-24-2022 Interpretation and review of laboratory results Normal [facility] Bilirubin.indirect [Mass/Vol ]on 12-24-2022 Bilirubin.conjugated [Mass/Vol] 0.0 mg/dL 0.0 - 0.3 mg/dL [facility] Interpretation and review of laboratory results Normal [facility] CBC panel Auto (Bld)Ordered By: Montrell Charles on 12-24-2022 Erythrocyte distribution width (RBC) [Ratio] 13.2 % 11.5 - 14.5 % [facility] Hematocrit (Bld) [Volume fraction] 34.9 % Low 40.0 - 52.0 % [facility] Hemoglobin (Bld) [Mass/Vol] 11.7 g/dL Low 13.0 - 18.0 g/dL [facility] Interpretation and review of laboratory results Abnormal [facility] MCH (RBC) [Entitic mass] 33.4 pg 26.0 - 34.0 pg [facility] MCHC (RBC) [Mass/Vol] 33.6 % 32.0 - 36.0 % [facility] MCV (RBC) [Entitic vol] 99.2 fL High 80.0 - 98.0 fL [facility] Platelet mean volume (Bld) [Entitic vol] 8.6 fL 7.4 - 12.4 fL [facility] Platelets (Bld) [#/Vol] 70 10*3/uL Low 140 - 440 10*3/uL [facility] RBC (Bld) [#/Vol] 3.52 10*6/uL Low 4.40 - 5.9 0 10*6/uL [facility] WBC (Bld) [#/Vol] 2.5 10*3/uL Low 3.6 - 10.7 10*3/uL [facility] Comprehensive metabolic 1998 panelon 12-24-2022 Albumin [Mass/Vol] 3.8 g/dL 3.5 - 5.0 g/dL [facility] ALP [Catalytic activity/Vol] 52 U/L 38 - 126 U/L [facility] ALT [Catalytic activity/Vol] 169 U/L High 0 - 49 U/L [facility] Anion gap [Moles/Vol] 5 mmol/L 3 - 13 mmol/L [facility] AST [Catalytic activity/Vol] 141 U/L High 15 - 46 U/L [facility] Bilirubin [Mass/Vol] 1.4 mg/dL High 0.2 - 1 .3 mg/dL [facility] Calcium [Mass/Vol] 9.0 mg/dL 8.4 - 10. 4 mg/dL [facility] Chloride [Moles/Vol] 101 mmol/L 98 - 10 7 mmol/L [facility] CO2 [Moles/Vol] 22 mmol/L 22 - 30 mmol/L [facility] Creatinine [Mass/Vol] 2.09 mg/dL High 0.66 - 1.25 mg/dL [facility] GFR/1.73 sq M.predicted MDRD (S/P/Bld) [Vol rate/Area] 35.1 mL/min/{1.73_m2} Low - PINF [facility] Comment on above: Calculation based on the Chronic Kidney Disease Epidemiology Collaboration (CKD-EPI) equation refit without adjustment for race Glucose [Mass/Vol] 89 mg/dL 70 - 100 mg/dL [facility] Interpretation and review of laboratory results Abnormal [facility] Potassium [Moles/Vol] 3.7 mmol/L 3.5 - 5.1 mmol/L [facility] Protein [Mass/Vol] 6.4 g/dL 6.3 - 8.2 g/dL [facility] Sodium [Moles/Vol] 129 mmol/L Low 135 - 145 mmol/L [facility] Urea nitrogen [Mass/Vol] 21 mg/dL High 9 - 20 mg/dL [facility] Laboratory - Chemistry and C hemistry - challengeon 12-24-2022 Glucose [Mass/Vol] 115 mg/dL High 70 - 100 mg/dL [facility] Glucose [Mass/Vol] 98 mg/dL 70 - 100 mg/dL [facility] Glucose [Mass/Vol] 136 mg/dL High 70 - 100 mg/dL [facility] Glucose [Mass/Vol] 87 mg/dL 70 - 100 mg/dL [facility] Laboratory - Microbiology an d Antimicrobial susceptibilityOrdered By: Ann Perry on 12-24-2022 Bacteria identified Cx Nom (U) No growth (<1,000 CFU/mL) [facility] No Panel Informationon 12-24 Interpretation and review of laboratory results Abnormal [facility]: [facility], [address] [place] [address] CLIA ID: [id number] [facility] Interpretation and review of laboratory results Normal [facility] Performed by: [facility], [address] [place] [address] CLIA ID: [id number] [facility] Interpretation and review of laboratory results Abnormal [facility] Performed by: [facility], [address] [facility] [address] CLIA ID: [id number] [facility] Interpretation and review of laboratory results Normal [facility] Performed by: [facility], [address] [place] [address] CLIA ID: [id number] [facility] Basic metabolic 1998 panelOr dered By: Daniel Allen on 12-23-2022 Anion gap [Moles/Vol] 7 mmol/L 3 - 13 mmol/L [facility] Calcium [Mass/Vol] 8.6 mg/dL 8.4 - 10. 4 mg/dL [facility] Chloride [Moles/Vol] 103 mmol/L 98 - 10 7 mmol/L [facility] CO2 [Moles/Vol] 18 mmol/L Low 22 - 30 mmol/L [facility] Creatinine [Mass/Vol] 5.24 mg/dL High 0.66 - 1.25 mg/dL [facility] GFR/1.73 sq M.predicted MDRD (S/P/Bld) [Vol rate/Area] 11.7 mL/min/{1.73_m2} Low - PINF [facility] Comment on above: Calculation based on the Chronic Kidney Disease Epidemiology Collaboration (CKD-EPI) equation refit without adjustment for race Glucose [Mass/Vol] 78 mg/dL 70 - 100 mg/dL [facility] Interpretation and review of laboratory results Abnormal [facility] Potassium [Moles/Vol] 4.3 mmol/L 3.5 - 5.1 mmol/L [facility] Sodium [Moles/Vol] 128 mmol/L Low 135 - 145 mmol/L [facility] Urea nitrogen [Mass/Vol] 41 mg/dL High 9 - 20 mg/dL [facility] CBC W Auto Differential pane l (Bld)Ordered By: Philip Medrano on 12-23-2022 Basophils (Bld) [#/Vol] 0.0 10*3/uL 0.0 - 0.2 10*3/uL [facility] Basophils/100 WBC (Bld) 0.5 % 0.0 - 2.0 % [facility] Eosinophils (Bld) [#/Vol] 0.1 10*3/uL 0.0 - 0.5 10*3/uL [facility] Eosinophils/100 WBC (Bld) 2.3 % 1.0 - 6.0 % [facility] Erythrocyte distribution width (RBC) [Ratio] 12.9 % 11.5 - 14.5 % [facility] Hematocrit (Bld) [Volume fraction] 33.8 % Low 40.0 - 52.0 % [facility] Hemoglobin (Bld) [Mass/Vol] 11.3 g/dL Low 13.0 - 18.0 g/dL [email or web address] Lymphocytes (Bld) [#/Vol] 1.2 10*3/uL 1.0 - 4.3 10*3/uL [facility] Lymphocytes/100 WBC (Bld) 39.2 % 20.0 - 40.0 % [facility] MCH (RBC) [Entitic mass] 33.4 pg 26.0 - 34.0 pg [email or web address] MCHC (RBC) [Mass/Vol] 33.5 % 32.0 - 36.0 % [facility] MCV (RBC) [Entitic vol] 99.5 fL High 80.0 - 98.0 fL [facility] Monocytes (Bld) [#/Vol] 0.5 10*3/uL 0.0 - 0.8 10*3/uL [facility] Monocytes/100 WBC (Bld) 15.1 % High 2.0 - 10.0 % [facility] Neutrophils (Bld) [#/Vol] 1.3 10*3/uL Low 1.8 - 7.0 10*3/uL [facility] Neutrophils/100 WBC (Bld) 42.9 % 40.0 - 80.0 % [email or web address] Nucleated RBC/100 WBC (Bld) [Ratio] 0.0 % [email or web address] Platelet mean volume (Bld) [Entitic vol] 8.5 fL 7.4 - 12.4 fL [email or web address] Platelets (Bld) [#/Vol] 56 10*3/uL Low 140 - 440 10*3/uL [facility] RBC (Bld) [#/Vol] 3.39 10*6/uL Low 4.40 - 5.9 0 10*6/uL [facility] WBC (Bld) [#/Vol] 3.1 10*3/uL Low 3.6 - 10.7 10*3/uL [email or web address] Creatinine (U) [Mass/Vol]on 12-23-2022 CREATININE, URINE 34.6 mg/dL No Range [facility] Laboratory - Chemistry and C hemistry - challengeon 12-23-2022 Glucose [Mass/Vol] 82 mg/dL 70 - 100 mg/dL [email or web address] Glucose [Mass/Vol] 83 mg/dL 70 - 100 mg/dL [facility] Urea nitrogen (U) [Mass/Vol] 153 mg/dL No Range [facility] Chloride (U) [Moles/Vol] 51 mmol/L 19 - 209 mmol/L [facility] Sodium (24H U) [Mass/Vol] 30 mmol/L 30 - 90 mmol/L [facility] Glucose [Mass/Vol] 144 mg/dL High 70 - 100 mg/dL [facility] Glucose [Mass/Vol] 71 mg/dL 70 - 100 mg/dL [facility] Glucose [Mass/Vol] 72 mg/dL 70 - 100 mg/dL [facility] Laboratory - Urinalysison Protein (U) [Mass/Vol] 16 mg/dL High 0 - 12 mg/dL [facility] Manual differential performe d Ql (Bld)on 12-23-2022 Anisocytosis Ql (Bld) Slight Abnormal (none) [facility] Giant platelets LM Ql (Bld) Rare Abnormal (none) [facility] Leukocyte morphology finding Nom (Bld) Normal [facility] Ovalocytes LM Ql (Bld) Slight Abnormal (none) [facility] No Panel Informationon 12-23 Interpretation and review of laboratory results Normal [facility] Performed by: [facility], [address] [place] [address] CLIA ID: [id number] [facility] Interpretation and review of laboratory results Normal [facility] Performed by: [facility], [address] [place] [address] CLIA ID: [id number] [facility] Interpretation and review of laboratory results Normal [facility] Interpretation and review of laboratory results Abnormal [facility] Interpretation and review of laboratory results Abnormal [facility] Performed by: [facility], [address] [place] [address] CLIA ID: [id number] [facility] Interpretation and review of laboratory results Normal [facility] Performed by: [facility], [address] [place] [address] CLIA ID: [id number] [facility] Interpretation and review of laboratory results Normal [facility] Performed by: [facility], [address] [place] [address] CLIA ID: [id number] [facility] No Panel InformationOrdered By: Philip Medrano on 12-23-2022 Interpretation and review of laboratory results Abnormal [facility] Urinalysis complete panel (U )Ordered By: Aminta Ackerman on 12-23-2022 Bilirubin Ql (U) Negative Negative mg/dL [facility] Clarity (U) Clear Clear [facility] Color (U) Colorless Lt. Yellow [facility] Glucose Ql (U) Normal Normal (<70) mg/dL [facility] Hemoglobin Ql (U) Negative Negative mg/dL [facility] Interpretation and review of laboratory results Abnormal [facility] Ketones (U) [Mass/Vol] Negative Negat zenia mg/dL [facility] Leukocyte esterase Test strip Ql (U) Negative Negative Emma/uL [facility] Nitrite Ql (U) Negative Negative [facility] pH (U) 5.0 [pH] 5.0 - 8.0 pH [facility] Protein (U) [Mass/Vol] Negative Negat zenia mg/dL [facility] Specific gravity (U) [Rel density] 1.004 Low 1.005 - 1.030 [facility] Urobilinogen (U) [Mass/Vol] Normal Normal (0-1) mg/dL [facility] CBC W Auto Differential pane l (Bld)Ordered By: Ashly Okeefe on 12-22-2022 Basophils (Bld) [#/Vol] 0.0 10*3/uL 0.0 - 0.2 10*3/uL [facility] Basophils/100 WBC (Bld) 0.6 % 0.0 - 2.0 % [facility] Eosinophils (Bld) [#/Vol] 0.1 10*3/uL 0.0 - 0.5 10*3/uL [facility] Eosinophils/100 WBC (Bld) 1.6 % 1.0 - 6.0 % [facility] Erythrocyte distribution width (RBC) [Ratio] 11.9 % 11.5 - 14.5 % [facility] Hematocrit (Bld) [Volume fraction] 35.8 % Low 40.0 - 52.0 % [facility] Hemoglobin (Bld) [Mass/Vol] 12.3 g/dL Low 13.0 - 18.0 g/dL [facility] Immature granulocytes (Bld) [#/Vol] 0.0 10*3/uL NINF - 0.0 10*3/uL [facility] [email or web address] Immature granulocytes/100 WBC (Bld) 0.8 % High NINF - 0.0 % [email or web address] Interpretation and review of laboratory results Abnormal [email or web address] Lymphocytes (Bld) [#/Vol] 1.4 10*3/uL 1.0 - 4.3 10*3/uL [facility] Lymphocytes/100 WBC (Bld) 27.7 % 20.0 - 40.0 % [email or web address] MCH (RBC) [Entitic mass] 33.6 pg 26.0 - 34.0 pg [email or web address] MCHC (RBC) [Mass/Vol] 34.4 % 32.0 - 36.0 % [email or web address] MCV (RBC) [Entitic vol] 97.8 fL 80.0 - 98.0 fL [email or web address] Monocytes (Bld) [#/Vol] 0.7 10*3/uL 0.0 - 0.8 10*3/uL [facility] Monocytes/100 WBC (Bld) 13.6 % High 2.0 - 10.0 % [email or web address] Neutrophils (Bld) [#/Vol] 2.7 10*3/uL 1.8 - 7.0 10*3/uL [facility] Neutrophils/100 WBC (Bld) 55.7 % 40.0 - 80.0 % [email or web address] Platelet mean volume (Bld) [Entitic vol] 10.5 fL 7.4 - 12.4 fL [email or web address] Platelets (Bld) [#/Vol] 76 10*3/uL Low 140 - 440 10*3/uL [email or web address] RBC (Bld) [#/Vol] 3.66 10*6/uL Low 4.40 - 5.9 0 10*6/uL [email or web address] WBC (Bld) [#/Vol] 4.9 10*3/uL 3.6 - 10.7 10*3/uL [facility] This is an appended report. These results have been appended to a previously verified report. [employer] CT Abdomen WO contraston Patient Name: WOODY [...] discogenic degenerative changes. Stable retrolisthesis at L2-L3. [facility] Ryan White MD - 12/22/2022 [facility] : 1960 [id number] Exam Date/Time: 12/22/2022 19:41 Procedure: CT ABDOMEN [...] Electronically Signed Date/Time: 12/22/2022 8:01 PM EST [facility] observation (narrative) [facility] CT Abdomen WO contrastOrdere d By: Ryan White on 12-22-2022 [email or web address] Work Phone: Comprehensive metabolic 1998 panelon 12-22-2022 Albumin [Mass/Vol] 4.6 g/dL 3.5 - 5.0 g/dL [email or web address] ALP [Catalytic activity/Vol] 59 U/L 38 - 126 U/L [email or web address] ALT [Catalytic activity/Vol] 214 U/L High 0 - 49 U/L [email or web address] Anion gap [Moles/Vol] 9 mmol/L 3 - 13 mmol/L [email or web address] AST [Catalytic activity/Vol] 205 U/L High 15 - 46 U/L [email or web address] Bilirubin [Mass/Vol] 1.0 mg/dL 0.2 - 1 .3 mg/dL [facility] Calcium [Mass/Vol] 9.6 mg/dL 8.4 - 10. 4 mg/dL [email or web address] Chloride [Moles/Vol] 92 mmol/L Low 98 - 10 7 mmol/L [email or web address] CO2 [Moles/Vol] 22 mmol/L 22 - 30 mmol/L [email or web address] Creatinine [Mass/Vol] 6.62 mg/dL High 0.66 - 1.25 mg/dL [facility] GFR/1.73 sq M.predicted MDRD (S/P/Bld) [Vol rate/Area] 8.8 mL/min/{1.73_m2} Low - PINF [facility] Comment on above: Calculation based on the Chronic Kidney Disease Epidemiology Collaboration (CKD-EPI) equation refit without adjustment for race Glucose [Mass/Vol] 101 mg/dL High 70 - 100 mg/dL [facility] Interpretation and review of laboratory results Abnormal [facility] Potassium [Moles/Vol] 5.1 mmol/L 3.5 - 5.1 mmol/L [email or web address] Protein [Mass/Vol] 7.8 g/dL 6.3 - 8.2 g/dL [facility] Sodium [Moles/Vol] 124 mmol/L Low 135 - 145 mmol/L [facility] Urea nitrogen [Mass/Vol] 46 mg/dL High 9 - 20 mg/dL [facility] Laboratory - Chemistry and C hemistry - challengeon 12-22-2022 Lipase [Catalytic activity/Vol] 111 U/L 23 - 300 U/L [facility] Lipase [Catalytic activity/V ol]on 12-22-2022 Interpretation and review of laboratory results Normal [facility] No Panel Informationon 12-22 [facility] Urinalysis complete panel (U )on 12-22-2022 Bacteria LM.HPF (Urine sed) [#/Area] Moderate Abnormal Negative /HPF [facility] Bilirubin Ql (U) Negative Negative mg/dL [facility] Clarity (U) Clear Clear [facility] Color (U) Yellow Lt. Yellow [facility] Epithelial cells.squamous LM.HPF (Urine sed) [#/Area] 0-2 [facility] Glucose Ql (U) Normal Normal (<70) mg/dL [facility] Hemoglobin Ql (U) 0.03 mg/dL Abnormal Negative [facility] Hyaline casts Auto (Urine sed) [#/Area] 3-5 Abnormal Negative /LPF [facility] Interpretation and review of laboratory results Abnormal [facility] Ketones (U) [Mass/Vol] Negative Negat zenia mg/dL [facility] Leukocyte esterase Test strip Ql (U) Negative Negative Emma/uL [facility] Mucus LM.HPF (Urine sed) [#/Area] Few Negative /LPF [facility] Nitrite Ql (U) Negative Negative [facility] pH (U) 5.0 [pH] 5.0 - 8.0 pH [facility] Protein (U) [Mass/Vol] 30 mg/dL Abnormal Negative [facility] RBC LM.HPF (Urine sed) [#/Area] Negative [facility] Specific gravity (U) [Rel density] 1.017 1.005 - 1.030 [facility] Urobilinogen (U) [Mass/Vol] Normal Normal (0-1) mg/dL [facility] Volume, Urine 12 mL [facility] WBC LM.HPF (Urine sed) [#/Area] 0-2 [facility] No Panel Informationon 07-08 [facility] Blood Occult Stool Screen #1 on 06-06-2022 Hemoglobin.gastrointes tinal Ql (Stl) Negative Negative NA [facility] Test Performed by [facility], [address], [place], [place] [address] [facility] Comp Metabolic Panelon 06-06 ALP [Catalytic activity/Vol] 65 U/L Normal 38-126 [facility] Comment on above: Performed By: #### N A3 #### [facility] [address] [place] [address] ALT [Catalytic activity/Vol] 183 U/L High 0-49 [facility] Comment on above: Result Comment: The ALT test is performed by an updated assay method. Please note that the reference intervals have been changed and are now sex specific. Performed By: #### N A3 #### [facility] [address] [place] [address] AST [Catalytic activity/Vol] 175 U/L High 15-46 [facility] Comment on above: Performed By: #### N A3 #### [facility] [address] [place] [address] Calcium [Mass/Vol] 9.0 mg/dL Normal 8.4-10.4 [facility] Comment on above: Performed By: #### N A3 #### [facility] [address] [place] [address] Glucose [Mass/Vol] 94 mg/dL Normal 70-100 [facility] Comment on above: Performed By: #### N A3 #### [place] [address] [place] [address] Protein [Mass/Vol] 6.1 g/dL Low 6.3-8.2 [facility] Comment on above: Performed By: #### N A3 #### [facility] [address] [place] [address] Urea nitrogen [Mass/Vol] 7 mg/dL Normal 7-17 [facility] Comment on above: Performed By: #### N A3 #### [facility] [address] [place] [address] Anion gap [Moles/Vol] 4 mmol/L Normal 3-13 [facility] Comment on above: Performed By: #### N A3 #### [facility] [address] [place] [address] Bilirubin [Mass/Vol] 0.7 mg/dL Normal 0.2-1.3 [facility] Comment on above: Performed By: #### N A3 #### [facility] [address] [place] [address] CO2 [Moles/Vol] 23 mmol/L Normal 22-30 [facility] Comment on above: Performed By: #### N A3 #### [facility] [address] [place] [address] Creatinine [Mass/Vol] 1.23 mg/dL Normal 0.52-1.25 [facility] Comment on above: Performed By: #### N A3 #### [facility] [address] [place] [address] GFR/1.73 sq M.predicted among blacks MDRD (S/P/Bld) [Vol rate/Area] 72.3 mL/min/{1.73_m2} Normal >60 [facility] Comment on above: Performed By: #### N A3 #### [facility] [address] [place] [address] GFR/1.73 sq M.predicted among non-blacks MDRD (S/P/Bld) [Vol rate/Area] 62.4 mL/min/{1.73_m2} Normal >60 [facility] Comment on above: Result Comment: KDIG O [...] #### N A3 #### [facility] [address] [place] [address] Albumin [Mass/Vol] 3.7 g/dL Normal 3.5-5.0 [facility] Comment on above: Performed By: #### N A3 #### [facility] [address] [place] [address] Chloride [Moles/Vol] 100 mmol/L Normal 98-107 [facility] Comment on above: Performed By: #### N A3 #### [facility] [address] [place] [address] Potassium [Moles/Vol] 4.6 mmol/L Normal 3.5-5.1 [facility] Comment on above: Performed By: #### N A3 #### [facility] [address] [place] [address] Sodium [Moles/Vol] 127 mmol/L Low 135-145 [facility] Comment on above: Performed By: #### N A3 #### [facility] [address] [place] [address] Comprehensive Metabolic Pane peter 06-06-2022 Albumin [Mass/Vol] 3.7 g/dL 3.5 - 5 g/dL [facility] ALP (Bld) [Catalytic activity/Vol] 65 U/L 38 - 126 U/L [facility] ALT [Catalytic activity/Vol] 183 U/L High 0 - 49 U/L [facility] Comment on above: The ALT test is [...] - 1.25 mg/dL [facility] EGFR IF NonAfrican Panamanian 62.4 mL/min 60 - PINF mL/min [facility] Comment on above: KDIGO guidelines pro vide [...] [Mass/Vol] 7 mg/dL 7 - 17 mg/dL [facility] Test Performed by [facility], [address] [place], [place] [address] [facility] Fecal Occult,Stool Single Sp econ 06-06-2022 Fecal Occult,Stool Single Spec Negative Normal Negative [facility] Comment on above: Performed By: #### N A3 #### [facility] [address] [place] [address] Glucose,Bedsideon 06-06-2022 Glucose [Mass/Vol] 153 mg/dL High 70-100 [facility] Comment on above: Result Comment: Test performed by glucose meter. Results may be 10%-15% lower than serum/plasma values. (CLIA ID [id number]) Performed By: #### N A3 #### [facility] [address] [place] [address] Glucose [Mass/Vol] 133 mg/dL High 70-100 [facility] Comment on above: Result Comment: Test performed by glucose meter. Results may be 10%-15% lower than serum/plasma values. (CLIA ID [id number]) Performed By: #### B GLU #### [facility] [address] [place] [address] [place] GASTRIC EMPTYINGon 2021 Patient Name: WOODY NI Nuclear Medicine ACCESSION EXAM DATE/TIME PROCEDURE ORDERING PROVIDER [id number] 06/06/2022 12:02 EDT [place] Gastric Emptying 784347 -OLEGHE, IFIJEN Study CPT code 47644 Reason For Exam (NM Gastric Emptying Study) [...] R Transcribed Date and Time: 06/06/2022 12:14 [facility] Ana Lyn MD - 06/06/2022 Patient Name: WOODY NI Nuclear Medicine ACCESSION EXAM DATE/TIME PROCEDURE ORDERING PROVIDER [id number] 06/06/2022 12:02 EDT [place] Gastric Emptying [id number] -OLEGHE, IFIJEN Study CPT code 33845 Reason For Exam (NM Gastric Emptying Study) [...] Medicine ACCESSION EXAM DATE/TIME PROCEDURE ORDERING PROVIDER [id number] 06/06/2022 12:02 EDT [place] Gastric Emptying [id number] -JUAN IFICHAPO Study CPT code 34675 Reason For Exam (NM Gastric Emptying Study) [...] Time: 06/06/2022 12:14 Normal [facility] POCT Glucoseon 06-06-2022 Glucose [Mass/Vol] 153 mg/dL High 70 - 100 mg/dL [facility] Work Phone: Comment on above: Test performed by gl ucose meter. Results may be 10%-15% lower than serum/plasma values. (CLIA ID [id number]) Interpretation and review of laboratory results Abnormal [facility] Work Phone: Test Performed by [facility], [address] [facility] Work Phone: Test Performed by [facility], [address] LAB POCT GlucoseOrdered By: Kaia Schaefer on 06-06-2022 Glucose [Mass/Vol] 133 mg/dL High 70 - 100 mg/dL [facility] Work Phone: Comment on above: Test performed by gl ucose meter. Results may be 10%-15% lower than serum/plasma values. (CLIA ID [id number]) Interpretation and review of laboratory results Abnormal [facility] Work Phone: [facility] Work Phone: Sodiumon 06-06-2022 Sodium [Moles/Vol] 129 mmol/L Low 135-145 [facility] Comment on above: Performed By: #### N A3 #### [facility] [address] [place] [address] CBCon 06-05-2022 Hematocrit (Bld) [Volume fraction] 31.7 % Low 40 - 52 % [facility] Hemoglobin (Bld) [Mass/Vol] 10.9 g/dL Low 13 - 18 g/dL [facility] Interpretation and review of laboratory results Abnormal [facility] MCH (RBC) [Entitic mass] 34.0 pg 26 - 34 pg [facility] MCHC (RBC) [Mass/Vol] 34.5 % 32 - 36 % [facility] MCV (RBC) [Entitic vol] 98.7 fL High 80 - 98 fL [facility] Platelet distribution width (Bld) [Ratio] 13.4 % 11.5 - 14.5 % [facility] Platelet mean volume (Bld) [Entitic vol] 8.6 fL 7.4 - 12.4 fL [facility] Comment on above: MPV is a calculated measurement using platelet volume ratio. Platelets (Bld) [#/Vol] 104 10*3/uL Low 140 - 440 10*3/uL [facility] RBC (Bld) [#/Vol] 3.21 10*6/uL Low 4.4 - 5.9 10*6/uL [facility] WBC (Bld) [#/Vol] 3.4 10*3/uL Low 3.6 - 10.7 10*3/uL [facility] Test Performed by [facility], [address] [place] [address] [facility] Comp Metabolic Panelon 06-05 ALP [Catalytic activity/Vol] 58 U/L Normal 38-126 [facility] Comment on above: Performed By: #### B GLU #### [facility] [address] [place] [address] ALT [Catalytic activity/Vol] 191 U/L High 0-49 [facility] Comment on above: Result Comment: The ALT test is performed by an updated assay method. Please note that the reference intervals have been changed and are now sex specific. Performed By: #### B GLU #### [facility] [address] [place] [address] Anion gap [Moles/Vol] 7 mmol/L Normal 3-13 [facility] Comment on above: Performed By: #### B GLU #### [facility] [address] [place] [address] AST [Catalytic activity/Vol] 178 U/L High 15-46 [facility] Comment on above: Performed By: #### B GLU #### [facility] [address] [place] [address] Calcium [Mass/Vol] 8.9 mg/dL Normal 8.4-10.4 [facility] Comment on above: Performed By: #### B GLU #### [facility] [address] [place] [address] CO2 [Moles/Vol] 24 mmol/L Normal 22-30 [facility] Comment on above: Performed By: #### B GLU #### [facility] [address] [place] [address] Glucose [Mass/Vol] 93 mg/dL Normal 70-100 [facility] Comment on above: Performed By: #### B GLU #### [facility] [address] [place] [address] Protein [Mass/Vol] 6.2 g/dL Low 6.3-8.2 [facility] Comment on above: Performed By: #### B GLU #### [facility] [address] [place] [address] Urea nitrogen [Mass/Vol] 8 mg/dL Normal 7-17 [facility] Comment on above: Performed By: #### B GLU #### [facility] [address] [place] [address] Bilirubin [Mass/Vol] 0.6 mg/dL Normal 0.2-1.3 [facility] Comment on above: Performed By: #### B GLU #### [facility] [address] [place] [address] Creatinine [Mass/Vol] 1.19 mg/dL Normal 0.52-1.25 [facility] Comment on above: Performed By: #### B GLU #### [facility] [address] [place] [address] GFR/1.73 sq M.predicted among blacks MDRD (S/P/Bld) [Vol rate/Area] 75.2 mL/min/{1.73_m2} Normal >60 [facility] Comment on above: Performed By: #### B GLU #### [facility] [address] [place] [address] GFR/1.73 sq M.predicted among non-blacks MDRD (S/P/Bld) [Vol rate/Area] 64.9 mL/min/{1.73_m2} Normal >60 [facility] Comment on above: Result Comment: KDIG O [...] #### B GLU #### [facility] [address] [place] [address] Albumin [Mass/Vol] 3.7 g/dL Normal 3.5-5.0 [facility] Comment on above: Performed By: #### B GLU #### [facility] [address] [place] [address] Chloride [Moles/Vol] 97 mmol/L Low 98-107 [facility] Comment on above: Performed By: #### B GLU #### [facility] [address] [place] [address] Potassium [Moles/Vol] 4.5 mmol/L Normal 3.5-5.1 [facility] Comment on above: Performed By: #### B GLU #### [facility] [address] [place] [address] Sodium [Moles/Vol] 128 mmol/L Low 135-145 [facility] Comment on above: Performed By: #### B GLU #### [facility] [address] [place] [address] Comprehensive Metabolic Pane peter 06-05-2022 Albumin [Mass/Vol] 3.7 g/dL 3.5 - 5 g/dL [facility] ALP (Bld) [Catalytic activity/Vol] 58 U/L 38 - 126 U/L [facility] ALT [Catalytic activity/Vol] 191 U/L High 0 - 49 U/L [facility] Comment on above: The ALT test is [...] - 1.25 mg/dL [facility] EGFR IF NonAfrican Panamanian 64.9 mL/min 60 - PINF mL/min [facility] [...] [Mass/Vol] 8 mg/dL 7 - 17 mg/dL [facility] Test Performed by [facility], [address] [place] [address] [facility] Glucose,Bedsideon 06-05-2022 Glucose [Mass/Vol] 107 mg/dL High 70-100 [facility] Comment on above: Result Comment: Test performed by glucose meter. Results may be 10%-15% lower than serum/plasma values. (CLIA ID [id number]) Performed By: #### B GLU #### [facility] [address] [place] [place] [address] Glucose [Mass/Vol] 94 mg/dL Normal 70-100 [facility] Comment on above: Result Comment: Test performed by glucose meter. Results may be 10%-15% lower than serum/plasma values. (CLIA ID [id number]) Performed By: #### B GLU #### [facility] [address] [place] [place] [address] Glucose [Mass/Vol] 96 mg/dL Normal 70-100 [facility] Comment on above: Result Comment: Test performed by glucose meter. Results may be 10%-15% lower than serum/plasma values. (CLIA ID [id number]) Performed By: #### B GLU #### [facility] [address] [place] [place] [address] Glucose [Mass/Vol] 105 mg/dL High 70-100 [facility] Comment on above: Result Comment: Test performed by glucose meter. Results may be 10%-15% lower than serum/plasma values. (CLIA ID [id number]) Performed By: #### B GLU #### [facility] [address] [place] [place] [address] HM ENDOSCOPY REPORTon 2021 Ordered by an unspec ified provider. [facility] Hemogramon 06-05-2022 Erythrocyte distribution width (RBC) [Ratio] 13.4 % Normal 11.5-14.5 [facility] Comment on above: Performed By: #### B GLU #### [facility] [address] [place] [address] Hematocrit (Bld) [Volume fraction] 31.7 % Low 40.0-52.0 [facility] Comment on above: Performed By: #### B GLU #### [facility] [address] [place] [address] Hemoglobin (Bld) [Mass/Vol] 10.9 g/dL Low 13.0-18.0 [facility] Comment on above: Performed By: #### B GLU #### [facility] [address] [place] [address] MCH (RBC) [Entitic mass] 34.0 pg Normal 26.0-34.0 [facility] Comment on above: Performed By: #### B GLU #### [facility] [address] [place] [address] MCHC 34.5 % Normal 32.0-36.0 [facility] Comment on above: Performed By: #### B GLU #### [facility] [address] [place] [address] MCV (RBC) [Entitic vol] 98.7 fL High 80.0-98.0 [facility] Comment on above: Performed By: #### B GLU #### [facility] [address] [place] [address] Platelet mean volume (Bld) [Entitic vol] 8.6 fL Normal 7.4-12.4 [facility] Comment on above: Result Comment: MPV is a calculated measurement using platelet volume ratio. Performed By: #### B GLU #### [facility] [address] [place] [address] Platelets (Bld) [#/Vol] 104 10*3/uL Low 140-440 [facility] Comment on above: Performed By: #### B GLU #### [facility] [address] [place] [address] RBC (Bld) [#/Vol] 3.21 10*6/uL Low 4.40-5.90 [facility] Comment on above: Performed By: #### B GLU #### [facility] [address] [place] [address] WBC (Bld) [#/Vol] 3.4 10*3/uL Low 3.6-10.7 [facility] Comment on above: Performed By: #### B GLU #### [facility] [address] [place] [address] POCT GlucoseOrdered By: Елена Yoo on 06-05-2022 Glucose [Mass/Vol] 107 mg/dL High 70 - 100 mg/dL [facility] Work Phone: Comment on above: Test performed by gl ucose meter. Results may be 10%-15% lower than serum/plasma values. (CLIA ID [id number]) Interpretation and review of laboratory results Abnormal [facility] Work Phone: [facility] Work Phone: POCT Glucoseon 06-05-2022 Test Performed by [facility], [address] LAB Glucose [Mass/Vol] 94 mg/dL 70 - 100 mg/dL [facility] Work Phone: Comment on above: Test performed by gl ucose meter. Results may be 10%-15% lower than serum/plasma values. (CLIA ID [id number]) Test Performed by [facility], [address] LAB [facility] Work Phone: Test Performed by [facility], [address] LAB Test Performed by [facility], [address] LAB POCT GlucoseOrdered By: Jennifer Cordova on 06-05-2022 Glucose [Mass/Vol] 96 mg/dL 70 - 100 mg/dL [facility] Comment on above: Test performed by gl ucose meter. Results may be 10%-15% lower than serum/plasma values. (CLIA ID [id number]) [facility] POCT GlucoseOrdered By: Janett Monaco on 06-05-2022 Glucose [Mass/Vol] 105 mg/dL High 70 - 100 mg/dL [facility] Comment on above: Test performed by gl ucose meter. Results may be 10%-15% lower than serum/plasma values. (CLIA ID [id number]) Interpretation and review of laboratory results Abnormal [facility] Retic Count(%)on 06-05-2022 Retic Count(%) 1.5 Normal [facility] Comment on above: Result Comment: Newb orn < 5% Adults 0.5 - 1.5% Performed By: #### B GLU #### [facility] [address] [place] [address] Reticulocyteson 06-05-[address] Pct 1.5 [facility] Comment on above: < 5% Adults 0.5 - 1.5% Test Performed by [facility], [facility] [address] LAB [facility] Sodiumon 06-05-2022 Interpretation and review of laboratory results Abnormal [facility] Sodium [Moles/Vol] 129 mmol/L Low 135 - 145 mmol/L [facility] Test Performed by [facility], [facility] [address] LAB [facility] Sodium [Moles/Vol] 127 mmol/L Low 135-145 [facility] Comment on above: Performed By: #### N A3 #### [facility] [address] [place] [address] Interpretation and review of laboratory results Abnormal [facility] Sodium [Moles/Vol] 127 mmol/L Low 135 - 145 mmol/L [facility] Test Performed by [facility], [facility] [address] LAB [facility] Sodium [Moles/Vol] 126 mmol/L Low 135-145 [facility] Comment on above: Performed By: #### N A3 #### [facility] [address] [place] [address] Interpretation and review of laboratory results Abnormal [facility] Sodium [Moles/Vol] 126 mmol/L Low 135 - 145 mmol/L [facility] Test Performed by [facility], [address] LAB [facility] Sodium [Moles/Vol] 127 mmol/L Low 135-145 [facility] Comment on above: Performed By: #### B GLU #### [facility] [address] [place] [address] Sodium, Ur Randomon 06-05-20 22 Sodium [Moles/Vol] 63 mmol/L Normal 30-90 [facility] Comment on above: Performed By: #### N A3 #### [facility] [address] [place] [address] Sodium, Urine, Randomon 05-19 Sodium (U) [Moles/Vol] 63 mmol/L 30 - 90 mmol/L [facility] Test Performed by [facility], [address] [place] [address] [facility] Surgical Pathologyon 022 Surgical Pathology [id number] [facility] PATHOLOGY AND LABORATORY MEDICINE [address] [place] [address] Fax - FINAL SURGICAL PATHOLOGY REPORT NAME: WOODY NI : 1960 62 Y M [facility] NO.: [id number] LOCATION: [place] [address] PROCEDURE 06/05/2022 DATE: SURGEON: ANA CALLAWAY M.D. [...] the clinical laboratories of [facility]. They have not been cleared by the [...] negativity on decalcified specimens. Case reviewed at [place] [address] [place] [address]. DEPARTMENT OF PATHOLOGY AND LABORATORY MEDICINE [place], [place] [address] [email or web address] Normal [facility] Add On Lab Teston 06-04-2022 Add On Rejected [facility] Test Performed by [facility], [address], [place], [place] [address] [facility] Add on test from HISon 06-04 Add on test from HIS Rejected Normal [facility] Comment on above: Performed By: #### B GLU #### [facility] [address] [place] [address] C. difficile toxin Molecular on 06-04-2022 C. difficile toxin Molecular NEGATIVE Methodology - Real Time PCR ([employer]) Clinical judgement must be used when interpreting results. Positive results may reflect colonization. Indeterminate results suggest a new specimen be submitted. _ [facility] CBCon 06-04-2022 Hematocrit (Bld) [Volume fraction] 23.4 % Low 40 - 52 % [facility] Hemoglobin (Bld) [Mass/Vol] 8.0 g/dL Low 13 - 18 g/dL [facility] Interpretation and review of laboratory results Abnormal [...] - 10.7 10*3/uL [facility] Test Performed by [facility], [address], [place], [place] [address] [facility] CBC with Auto Differentialon 06-04-2022 Hematocrit (Bld) [...] 3.5 10*3/uL Low 3.6 - 10.7 10*3/uL [facility] Test Performed by [facility], [address], [place], [place] [address] [facility] Clostridium difficile PCRon 06-04-2022 Clostridium difficile PCR [...] be submitted. _ Normal [facility] Comment on above: Performed By: #### C DPCR #### , [id number] The performing lab is in the report. Comp Metabolic Panelon 06-04 ALP [Catalytic activity/Vol] 38 U/L Normal 38-126 [facility] Comment on above: Performed By: #### B GLU #### [facility] [address] [place] [address] ALT [Catalytic activity/Vol] 172 U/L High 0-49 [facility] Comment on above: Result Comment: The ALT test is performed by an updated assay method. Please note that the reference intervals have been changed and are now sex specific. Performed By: #### B GLU #### [facility] [address] [place] [address] Anion gap [Moles/Vol] 6 mmol/L Normal 3-13 [facility] Comment on above: Performed By: #### B GLU #### [facility] [address] [place] [address] AST [Catalytic activity/Vol] 177 U/L High 15-46 [facility] Comment on above: Performed By: #### B GLU #### [facility] [address] [place] [address] Bilirubin [Mass/Vol] 0.3 mg/dL Normal 0.2-1.3 [facility] Comment on above: Performed By: #### B GLU #### [facility] [address] [place] [address] Calcium [Mass/Vol] 6.3 mg/dL Low 8.4-10.4 [facility] Comment on above: Performed By: #### B GLU #### [facility] [address] [place] [address] CO2 [Moles/Vol] 16 mmol/L Low 22-30 [facility] Comment on above: Performed By: #### B GLU #### [facility] [address] [place] [address] Glucose [Mass/Vol] 76 mg/dL Normal 70-100 [facility] Comment on above: Performed By: #### B GLU #### [facility] [address] [place] [address] Protein [Mass/Vol] 4.7 g/dL Low 6.3-8.2 [facility] Comment on above: Performed By: #### B GLU #### [facility] [address] [place] [address] Urea nitrogen [Mass/Vol] 4 mg/dL Low 7-17 [facility] Comment on above: Performed By: #### B GLU #### [facility] [address] [place] [address] Creatinine [Mass/Vol] 1.04 mg/dL Normal 0.52-1.25 [facility] Comment on above: Performed By: #### B GLU #### [facility] [address] [place] [address] GFR/1.73 sq M.predicted among blacks MDRD (S/P/Bld) [Vol rate/Area] 88.6 mL/min/{1.73_m2} Normal >60 [facility] Comment on above: Performed By: #### B GLU #### [facility] [address] [place] [address] GFR/1.73 sq M.predicted among non-blacks MDRD (S/P/Bld) [Vol rate/Area] 76.4 mL/min/{1.73_m2} Normal >60 [facility] Comment on above: Result Comment: KDIG O [...] #### B GLU #### [facility] [address] [place] [address] Albumin [Mass/Vol] 2.7 g/dL Low 3.5-5.0 [facility] Comment on above: Performed By: #### B GLU #### [facility] [address] [place] [address] Chloride [Moles/Vol] 108 mmol/L High 98-107 [facility] Comment on above: Performed By: #### B GLU #### [facility] [address] [place] [address] Potassium [Moles/Vol] 3.4 mmol/L Low 3.5-5.1 [facility] Comment on above: Performed By: #### B GLU #### [facility] [address] [place] [place] [address] Sodium [Moles/Vol] 130 mmol/L Low 135-145 [facility] Comment on above: Performed By: #### B GLU #### [facility] [address] [place] [address] Comprehensive Metabolic Pane peter 06-04-2022 Albumin [Mass/Vol] [...] - 1.25 mg/dL [facility] EGFR IF NonAfrican Panamanian 76.4 mL/min 60 - PINF mL/min [facility] [...] [Mass/Vol] 76 mg/dL 70 - 100 mg/dL [facility] Interpretation and review of laboratory results Abnormal [facility] Potassium [Moles/Vol] 3.4 mmol/L Low 3.5 - 5.1 mmol/L [facility] Sodium [Moles/Vol] 130 mmol/L Low 135 - 145 mmol/L [facility] Urea nitrogen (BldV) [Mass/Vol] 4 mg/dL Low 7 - 17 mg/dL [facility] Test Performed by [address] LAB [facility] EKG 12 Lead - Chest Painon 0 06-04-2022 [facility] Test Date: 2022-06-03 Pat Name: WOODY NI Department: EMERGENCY Room: 243 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1960 Requested By: DANIEL EWING Order Number: [id number] Reading MD: Khurram Bob Measurements Intervals [place] Rate: 75 P: 0 [place]: 159 QRS: -32 QRSD: 141 T: 11 QT: 412 QTc: 459 Interpretive Statements Sinus rhythm Right bundle branch block No previous ECG available for comparison Electronically Signed On 06-04-2022 7:11:00 EDT by Khurram Bob [facility] CARDIOLOGY Khurram Bob MD - 06/04/2022 [facility] Test Date: 2022-06-03 Pat Name: WOODY NI Department: EMERGENCY Room: 243 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1960 Requested By: DANIEL EWING Order Number: [id number] Reading MD: Khurram Bob Measurements Intervals [place] Rate: 75 P: 0 [place]: 159 QRS: -32 QRSD: 141 T: 11 QT: 412 QTc: 459 Interpretive Statements Sinus rhythm Right bundle branch block No previous ECG available for comparison Electronically Signed On 06-04-2022 7:11:00 EDT by Khurram Bob [facility] Work Phone: EKG 12 Lead - Chest PainOrde red By: Khurram Bob on 06-04-2022 [facility] Work Phone: Ferritinon 06-04-2022 Ferritin [Mass/Vol] 981 ng/mL High 18-464 [facility] Comment on above: Performed By: #### N A3 #### [facility] [address] [place] [address] Ferritin [Mass/Vol] 981 ng/mL High 18 - 464 ng/mL [facility] Interpretation and review of laboratory results Abnormal [facility] Test Performed by [facility], [address] [place], [place] [address] [facility] GASTROINTESTINAL PCR PANELon 06-04-2022 GASTROINTESTINAL PCR PANEL GASTROINTESTINAL PCR PANEL --> Status: F NEGATIVE: No targets were detected by the [facility] Gastrointestinal PCR Panel. _ The [employer] Gastrointestinal PCR Panel can detect the following targets: Campylobacter, Plesiomonas shigelloides, Salmonella, Vibrio species, Vibrio cholerae, Yersinia enterocolitica, Shiga toxin-producing E coli (STEC) including E coli O157, Enterotoxigenic E coli (ETEC), Shigella/Enteroinvasive E coli (EIEC), Cryptosporidium, Cyclospora cayetanensis, Entamoeba histolytica, Giardia lamblia, Adenovirus F 40/41, Astrovirus, Norovirus GI/GII, Rotavirus A, Sapovirus Gastrointestinal PCR Panel. _ The [employer] Gastrointestinal PCR Panel can detect the following targets: Campylobacter, Plesiomonas shigelloides, Salmonella, Vibrio species, Vibrio cholerae, Yersinia enterocolitica, Shiga toxin-producing E coli (STEC) including E coli O157, Enterotoxigenic E coli (ETEC), Shigella/Enteroinvasive E coli (EIEC), Cryptosporidium, Cyclospora cayetanensis, Entamoeba histolytica, Giardia lamblia, Adenovirus F 40/41, Astrovirus, Norovirus GI/GII, Rotavirus A, Sapovirus Normal [facility] Comment on above: Performed By: #### B FGI #### [address] [address] Gastrointestinal Panel by GARRY Morales 06-04-2022 Gastrointestinal PCR Panel NEGATIVE: No targets were detected by the [facility] Gastrointestinal PCR Panel. _ The [employer] Gastrointestinal PCR Panel can detect the following targets: Campylobacter, Plesiomonas shigelloides, Salmonella, Vibrio species, Vibrio cholerae, Yersinia enterocolitica, Shiga toxin-producing E coli (STEC) including E coli O157, Enterotoxigenic E coli (ETEC), Shigella/Enteroinvasive E coli (EIEC), Cryptosporidium, Cyclospora cayetanensis, Entamoeba histolytica, Giardia lamblia, Adenovirus F 40/41, Astrovirus, Norovirus GI/GII, Rotavirus A, Sapovirus [facility] Test Performed by [facility], [address] [place] [id number] [place] [address] LAB Glucose,Bedsideon 06-04-2022 Glucose [Mass/Vol] 89 mg/dL Normal [address] [place] [address] Comment on above: Result Comment: Test performed by glucose meter. Results may be 10%-15% lower than serum/plasma values. (CLIA ID [id number]) Performed By: #### N A3 #### [facility] [address] [place] [address] Glucose [Mass/Vol] 104 mg/dL High 70-100 [facility] Comment on above: Result Comment: Test performed by glucose meter. Results may be 10%-15% lower than serum/plasma values. (CLIA ID [id number]) Performed By: #### N A3 #### [facility] [address] [place] [address] Glucose [Mass/Vol] 122 mg/dL High 70-100 [facility] Comment on above: Result Comment: Test performed by glucose meter. Results may be 10%-15% lower than serum/plasma values. (CLIA ID [id number]) Performed By: #### N A3 #### [facility] [address] [facility] [place] [address] Glucose [Mass/Vol] 100 mg/dL Normal 70-100 [facility] Comment on above: Result Comment: Test performed by glucose meter. Results may be 10%-15% lower than serum/plasma values. (CLIA ID [id number]) Performed By: #### B GLU #### [facility] [address] [place] [address] Hemoglobin A1Con 06-04-2022 Glucose [Mass/Vol] 94 mg/dL Normal [facility] Comment on above: Performed By: #### H A1C2 #### [facility] [address] [facility] [place] [address] HbA1c (Bld) [Mass fraction] 4.9 % Normal [facility] Comment on above: Result Comment: Norm al less than 5.7% Prediabetes 5.7% to 6.4% Diabetes 6.5% or higher --HgbA1C levels may not be accurate in patients who have renal disease, received recent blood transfusions, are anemic, or who have dyshemoglobinemia. Performed By: #### H A1C2 #### [facility] [address] [place] [address] Hemoglobin A1con 06-04-2022 HbA1c (Bld) [Mass fraction] 4.9 % [facility] Comment on above: Normal less than 5.7 % Prediabetes 5.7% to 6.4% Diabetes 6.5% or higher --HgbA1C levels may not be accurate in patients who have renal disease, received recent blood transfusions, are anemic, or who have dyshemoglobinemia. Magnesium [Mass/Vol] 94 mg/dL [facility] Test Performed by [facility], [address] [place], [place] [address] [facility] Hemogramon 06-04-2022 Erythrocyte distribution width (RBC) [Ratio] 13.2 % Normal 11.5-14.5 [facility] Comment on above: Performed By: #### B GLU #### [facility] [address] [place] [address] Hematocrit (Bld) [Volume fraction] 23.4 % Low 40.0-52.0 [facility] Comment on above: Performed By: #### B GLU #### [facility] [address] [place] [address] Hemoglobin (Bld) [Mass/Vol] 8.0 g/dL Low 13.0-18.0 [facility] Comment on above: Performed By: #### B GLU #### [facility] [address] [place] [address] MCH (RBC) [Entitic mass] 34.5 pg High 26.0-34.0 [facility] Comment on above: Performed By: #### B GLU #### [facility] [address] [place] [address] MCHC 34.3 % Normal 32.0-36.0 [facility] Comment on above: Performed By: #### B GLU #### [facility] [address] [place] [address] MCV (RBC) [Entitic vol] 100.5 fL High 80.0-98.0 [facility] Comment on above: Performed By: #### B GLU #### [facility] [address] [place] [address] Platelet mean volume (Bld) [Entitic vol] 9.2 fL Normal 7.4-12.4 [facility] Comment on above: Result Comment: MPV is a calculated measurement using platelet volume ratio. Performed By: #### B GLU #### [facility] [address] [place] [address] Platelets (Bld) [#/Vol] 72 10*3/uL Low 140-440 [facility] Comment on above: Performed By: #### B GLU #### [facility] [address] [place] [address] RBC (Bld) [#/Vol] 2.33 10*6/uL Low 4.40-5.90 [facility] Comment on above: Performed By: #### B GLU #### [facility] [address] [place] [address] WBC (Bld) [#/Vol] 2.4 10*3/uL Low 3.6-10.7 [facility] Comment on above: Performed By: #### B GLU #### [facility] [address] [place] [address] Hemogram w/ Autodiffon 06-04 Erythrocyte distribution width (RBC) [Ratio] 13.3 % Normal 11.5-14.5 [facility] Comment on above: Performed By: #### N A3 #### [facility] [address] [place] [address] Hematocrit (Bld) [Volume fraction] 30.5 % Low 40.0-52.0 [facility] Comment on above: Performed By: #### N A3 #### [facility] [address] [place] [address] Hemoglobin (Bld) [Mass/Vol] 10.5 g/dL Low 13.0-18.0 [facility] Comment on above: Performed By: #### N A3 #### [facility] [address] [place] [address] MCH (RBC) [Entitic mass] 34.3 pg High 26.0-34.0 [facility] Comment on above: Performed By: #### N A3 #### [facility] [address] [place] [address] MCHC 34.5 % Normal 32.0-36.0 [facility] Comment on above: Performed By: #### N A3 #### [facility] [address] [place] [address] MCV (RBC) [Entitic vol] 99.5 fL High 80.0-98.0 [facility] Comment on above: Performed By: #### N A3 #### [facility] [address] [place] [address] Platelet mean volume (Bld) [Entitic vol] 9.0 fL Normal 7.4-12.4 [facility] Comment on above: Result Comment: MPV is a calculated measurement using platelet volume ratio. Performed By: #### N A3 #### [facility] [address] [place] [address] Platelets (Bld) [#/Vol] 98 10*3/uL Low 140-440 [facility] Comment on above: Performed By: #### N A3 #### [facility] [address] [place] [address] RBC (Bld) [#/Vol] 3.07 10*6/uL Low 4.40-5.90 [facility] Comment on above: Performed By: #### N A3 #### [facility] [address] [place] [address] WBC (Bld) [#/Vol] 3.5 10*3/uL Low 3.6-10.7 [facility] Comment on above: Performed By: #### N A3 #### [facility] [address] [place] [address] Hepatic Functionon 2 ALP [Catalytic activity/Vol] 52 U/L Normal 38-126 [facility] Comment on above: Performed By: #### N A3 #### [facility] [address] [place] [address] ALT [Catalytic activity/Vol] 182 U/L High 0-49 [facility] Comment on above: Result Comment: The ALT test is performed by an updated assay method. Please note that the reference intervals have been changed and are now sex specific. Performed By: #### N A3 #### [facility] [address] [place] [address] AST [Catalytic activity/Vol] 192 U/L High 15-46 [facility] Comment on above: Performed By: #### N A3 #### [facility] [address] [place] [address] Bilirubin [Mass/Vol] 0.4 mg/dL Normal 0.2-1.3 [facility] Comment on above: Performed By: #### N A3 #### [facility] [address] [place] [address] Bilirubin.indirect [Mass/Vol] 0.0 mg/dL Normal 0.0-0.3 [facility] Comment on above: Performed By: #### N A3 #### [facility] [address] [place] [address] Protein [Mass/Vol] 5.8 g/dL Low 6.3-8.2 [facility] Comment on above: Performed By: #### N A3 #### [facility] [address] [place] [address] Albumin [Mass/Vol] 3.6 g/dL Normal 3.5-5.0 [facility] Comment on above: Performed By: #### N A3 #### [facility] [address] [place] [address] Hepatic Function Panelon Albumin [Mass/Vol] 3.6 g/dL [...] 5.8 g/dL Low 6.3 - 8.2 g/dL [facility] Interpretation and review of laboratory results Abnormal [facility] Iron AND TIBCon 06-04-2022 Saturation 55 % High 15-50 [facility] Comment on above: Performed By: #### N A3 #### [facility] [address] [place] [address] Total Iron Binding Cap. 216 ug/dL Low 261-497 [facility] Comment on above: Performed By: #### N A3 #### [facility] [address] [place] [address] Iron, Total 119 ug/dL Normal 49-181 [facility] Comment on above: Performed By: #### N A3 #### [facility] [address] [place] [address] Iron and TIBCon 06-04-2022 Interpretation and review of laboratory results Abnormal [facility] Iron [Mass/Vol] 119 ug/dL 49 - 181 ug/dL [facility] Sat 55 % High 15 - 50 % [facility] TIBC 216 ug/dL Low 261 - 497 ug/dL [facility] Test Performed by [facility], [address] [place] [address] [facility] Lipaseon 06-04-2022 Lipase [Catalytic activity/Vol] 99 U/L Normal 23-300 [facility] Comment on above: Performed By: #### N A3 #### [facility] [address] [place] [address] Lipase [Catalytic activity/Vol] 99 U/L 23 - 300 U/L [facility] Manual Diffon 06-04-2022 Abs Eosin Cnt 0.1 10*3/uL Normal 0.0-0.5 [facility] Comment on above: Performed By: #### N A3 #### [facility] [address] [place] [address] Abs Lymph Cnt 0.9 10*3/uL Low 1.1-4.5 [facility] Comment on above: Performed By: #### N A3 #### [place] [address] [place] [address] Abs Monocyte Cnt 0.3 10*3/uL Normal 0.2-1.1 [facility] Comment on above: Performed By: #### N A3 #### [facility] [address] [place] [address] Abs Neutrophile Cnt 2.2 10*3/uL Normal 2.2-8.2 [facility] Comment on above: Performed By: #### N A3 #### [facility] [address] [place] [address] Eosinophils 3 % Normal 1-6 [facility] Comment on above: Performed By: #### N A3 #### [facility] [address] [place] [address] Hypochromia Slight Normal [facility] Comment on above: Performed By: #### N A3 #### [facility] [address] [place] [address] Lymphocytes 26 % Normal 20-40 [facility] Comment on above: Performed By: #### N A3 #### [facility] [address] [place] [address] Monocytes 8 % Normal 2-10 [facility] Comment on above: Performed By: #### N A3 #### [facility] [address] [place] [address] RBC Morphology ABNORMAL Normal [facility] Comment on above: Performed By: #### N A3 #### [facility] [address] [place] [address] Seg Neutrophils 63 % Normal 40-80 [facility] Comment on above: Performed By: #### N A3 #### [facility] [address] [place] [address] Abs Baso Cnt 0.0 10*3/uL Normal 0.0-0.2 [facility] Comment on above: Performed By: #### N A3 #### [facility] [address] [place] [address] Bands 0 % Normal 0-3 [facility] Comment on above: Performed By: #### N A3 #### [facility] [address] [place] [address] Basophils 0 % Normal 0-2 [facility] Comment on above: Performed By: #### N A3 #### [facility] [address] [place] [address] Cells counted 100 Normal [facility] Comment on above: Performed By: #### N A3 #### [facility] [address] [place] [address] Manual Differentialon 2021 Absolute Baso # 0.0 10*3/uL 0 - 0.2 10*3/uL [facility] Absolute Eos # 0.1 10*3/uL 0 - 0.5 10*3/uL [facility] Absolute Lymph # 0.9 10*3/uL Low 1.1 - 4.5 10*3/uL [facility] Absolute Hughes # 0.3 10*3/uL 0.2 - 1.1 10*3/uL [...] CELLS COUNTED 100 [facility] Test Performed by [facility], [address] [place], [address] LAB [facility] No Panel Informationon 06-04 [facility] Test Performed by [facility], [facility] [address] [place], [address] LAB [facility] Interpretation and review of laboratory results Abnormal [facility] Test Performed by [facility], [facility] [address] [place], [address] LAB [facility] Osmolalityon 06-04-2022 Serum Osmolality 265 mosm/kg Low 280 - 300 mosm/kg [facility] Osmol[facility],Serumon 2 Osmolality,Serum 265 mosm/kg Low 280-300 [facility] Comment on above: Performed By: #### B GLU #### [facility] [address] [place] [address] POCT GlucoseOrdered By: Alexander Walsh on 06-04-2022 Glucose [Mass/Vol] 89 mg/dL 70 - 100 mg/dL [facility] Work Phone: Comment on above: Test performed by gl ucose meter. Results may be 10%-15% lower than serum/plasma values. (CLIA ID [id number]) [facility] Work Phone: POCT Glucoseon 06-04-2022 Test Performed by [facility], [address] [place], [address] LAB Glucose [Mass/Vol] 104 mg/dL High 70 - 100 mg/dL [facility] Work Phone: Comment on above: Test performed by gl ucose meter. Results may be 10%-15% lower than serum/plasma values. (CLIA ID [id number]) Interpretation and review of laboratory results Abnormal [facility] Work Phone: Test Performed by [facility], [address] LAB [facility] Work Phone: Test Performed by [facility], [address], [place], [place] [id number] [place] [address] LAB Test Performed by [facility], [address] [place], [place], [place] [id number] [place] [address] LAB POCT GlucoseOrdered By: Carter Scott on 06-04-2022 Glucose [Mass/Vol] 122 mg/dL High 70 - 100 mg/dL [facility] Work Phone: Comment on above: Test performed by gl ucose meter. Results may be 10%-15% lower than serum/plasma values. (CLIA ID [id number]) Interpretation and review of laboratory results Abnormal [facility] Work Phone: [facility] Work Phone: POCT GlucoseOrdered By: Arabella Robert on 06-04-2022 Glucose [Mass/Vol] 100 mg/dL 70 - 100 mg/dL [facility] Work Phone: Comment on above: Test performed by gl ucose meter. Results may be 10%-15% lower than serum/plasma values. (CLIA ID [id number]) [facility] Work Phone: Prothrombin Timeon 2 INR 1.3 High 0.9-1.1 [facility] [email or web address] [facility] Comment on above: Result Comment: Fantasma [...] #### B GLU #### [facility] [address] [place] [address] PT Coag (PPP) [Time] 13.8 s High 9.0-12.0 [facility] [email or web address] [facility] Comment on above: Result Comment: . Performed By: #### B GLU #### [facility] [address] [place] [address] Protime-INRon 06-04-2022 INR Coag (Bld) [Relative time] [...] - 145 mmol/L [facility] Test Performed by [facility], [address] [place] [address] LAB [facility] Sodium [Moles/Vol] 125 mmol/L Low 135-145 [facility] Comment on above: Performed By: #### B GLU #### [facility] [address] [place] [address] Interpretation and review of laboratory results Abnormal [facility] Sodium [Moles/Vol] 125 mmol/L Low 135 - 145 mmol/L [facility] Test Performed by [facility], [address] [place] [address] LAB [facility] Sodium [Moles/Vol] 127 mmol/L Low 135-145 [facility] Comment on above: Performed By: #### B GLU #### [facility] [address] [place] [address] Interpretation and review of laboratory results Abnormal [facility] Sodium [Moles/Vol] 127 mmol/L Low 135 - 145 mmol/L [facility] Test Performed by [facility], [address] [place] [address] LAB [facility] TSHon 06-04-2022 TSH Qn 2.601 u[IU]/mL 0.465 - 4.68 u[IU]/mL [facility] Test Performed by [facility], [address] [place], [place] [id number] [place] [address] LAB [facility] Thyroid Stim. Hormoneon 05-19 Thyroid Stim. Hormone 2.601 u[IU]/mL Normal 0.465-4.68 0 [facility] Comment on above: Performed By: #### N A3 #### [facility] [address] [place] [address] Vitamin B12on 06-04-2022 Cobalamin (Vitamin B12) [Mass/Vol] 725 pg/mL Normal 239-931 [facility] Comment on above: Performed By: #### N A3 #### [facility] [address] [place] [address] Cobalamin (Vitamin B12) [Mass/Vol] 725 pg/mL 239 - 931 pg/mL [facility] Test Performed by [facility], [address] [facility] CBC with Auto Differentialon [...] 36.2 % High 32 - 36 % [facility] MCV (RBC) [Entitic vol] 95.1 fL 80 [...] [#/Vol] 4.0 10*3/uL 3.6 - 10.7 10*3/uL [facility] Test Performed by [facility], [address] , [place], [place] [id number] [place] [address] LAB [facility] Comp Metabolic Panelon 06-03 Albumin [Mass/Vol] 4.0 g/dL Normal 3.5-5.0 [facility] Comment on above: Performed By: #### B GLU #### [facility] [address] [place] [address] ALP [Catalytic activity/Vol] 49 U/L Normal 38-126 [facility] Comment on above: Performed By: #### B GLU #### [facility] [address] [place] [address] ALT [Catalytic activity/Vol] 227 U/L High 0-49 [facility] Comment on above: Result Comment: The ALT test is performed by an updated assay method. Please note that the reference intervals have been changed and are now sex specific. Performed By: #### B GLU #### [facility] [address] [place] [address] Anion gap [Moles/Vol] 13 mmol/L Normal 3-13 [facility] Comment on above: Performed By: #### B GLU #### [facility] [address] [place] [address] AST [Catalytic activity/Vol] 288 U/L High 15-46 [facility] Comment on above: Performed By: #### B GLU #### [facility] [address] [place] [address] Bilirubin [Mass/Vol] 0.6 mg/dL Normal 0.2-1.3 [facility] Comment on above: Performed By: #### B GLU #### [facility] [address] [place] [address] Calcium [Mass/Vol] 8.6 mg/dL Normal 8.4-10.4 [facility] Comment on above: Performed By: #### B GLU #### [facility] [address] [place] [address] Chloride [Moles/Vol] 92 mmol/L Low 98-107 [facility] Comment on above: Performed By: #### B GLU #### [facility] [address] [place] [address] CO2 [Moles/Vol] 14 mmol/L Low 22-30 [facility] Comment on above: Performed By: #### B GLU #### [facility] [address] [place] [address] Creatinine [Mass/Vol] 1.66 mg/dL High 0.52-1.25 [facility] Comment on above: Performed By: #### B GLU #### [facility] [address] [place] [address] GFR/1.73 sq M.predicted among blacks MDRD (S/P/Bld) [Vol rate/Area] 50.3 mL/min/{1.73_m2} Abnormal >60 [facility] Comment on above: Performed By: #### B GLU #### [facility] [address] [place] [address] GFR/1.73 sq M.predicted among non-blacks MDRD (S/P/Bld) [Vol rate/Area] 43.4 mL/min/{1.73_m2} Abnormal >60 [facility] Comment on above: Result Comment: KDIG O [...] #### B GLU #### [facility] [address] [place] [address] Glucose [Mass/Vol] 114 mg/dL High 70-100 [facility] Comment on above: Performed By: #### B GLU #### [facility] [address] [place] [address] Potassium [Moles/Vol] 4.2 mmol/L Normal 3.5-5.1 [facility] Comment on above: Performed By: #### B GLU #### [facility] [address] [place] [address] Protein [Mass/Vol] 6.5 g/dL Normal 6.3-8.2 [facility] Comment on above: Performed By: #### B GLU #### [facility] [address] [place] [address] Sodium [Moles/Vol] 119 mmol/L Critically low 135-145 [facility] Comment on above: Performed By: #### B GLU #### [facility] [address] [place] [address] Urea nitrogen [Mass/Vol] 8 mg/dL Normal 7-17 [facility] Comment on above: Performed By: #### B GLU #### [facility] [address] [place] [address] Complete Urinalysison 2021 VOLUME, URINE 12 ml Normal [facility] Comment on above: Result Comment: . Performed By: #### B GLU #### [facility] [address] [place] [address] Appearance (U) Clear Normal Clear [facility] Comment on above: Result Comment: . Performed By: #### B GLU #### [facility] [address] [place] [address] Bilirubin,Urine Negative Normal Negative [facility] Comment on above: Result Comment: . Performed By: #### B GLU #### [facility] [address] [place] [address] Color (U) LIGHT YELLOW Normal Lt. Yellow [facility] Comment on above: Result Comment: . Performed By: #### B GLU #### [facility] [address] [place] [address] Glucose Ql (U) Normal Normal Normal (<70) [facility] Comment on above: Result Comment: . Performed By: #### B GLU #### [facility] [address] [place] [address] Ketone,Urine Negative Normal Negative [facility] Comment on above: Result Comment: . Performed By: #### B GLU #### [facility] [address] [place] [address] Leukocytes,Urine Negative Normal Negative [facility] Comment on above: Result Comment: . Performed By: #### B GLU #### [facility] [address] [place] [address] Nitrites,Urine Negative Normal Negative [facility] Comment on above: Result Comment: . Performed By: #### B GLU #### [facility] [address] [place] [address] Occult Blood,Urine Negative Normal Negative [facility] Comment on above: Result Comment: . Performed By: #### B GLU #### [facility] [address] [place] [address] pH,Urine 5.5 Normal 5.0-8.0 [facility] Comment on above: Result Comment: . Performed By: #### B GLU #### [facility] [address] [place] [address] Specific [place],Urine 1.007 Normal 1.005 - 1.030 [facility] Comment on above: Result Comment: . Performed By: #### B GLU #### [facility] [address] [place] [address] Total Protein,Urine Negative Normal Negative [facility] Comment on above: Result Comment: . Performed By: #### B GLU #### [facility] [address] [place] [address] Urobilinogen,Urine Normal Normal Normal (0-1) [facility] Comment on above: Result Comment: . Performed By: #### B GLU #### [facility] [address] [place] [address] Comprehensive Metabolic Pane peter 06-03-2022 Albumin [Mass/Vol] [...] - 1.25 mg/dL [facility] EGFR IF NonAfrican Panamanian 43.4 mL/min Abnormal 60 - PINF mL/min [...] 0.132 g/dL High 0 - 0.01 g/dL [facility] Comment on above: NOTE: This result is for medical treatment only. Analysis performed using non-forensic procedures. Interpretation and review of laboratory results Abnormal [facility] Test Performed by [facility], [address] , [place], [place] [id number] [place] [address] LAB [facility] Ethanol Serum/Plasmaon 06-03 Ethanol-Serum/Plasma 0.132 g/dL High 0.000-0.010 [facility] Comment on above: Result Comment: NOTE : This result is for medical treatment only. Analysis performed using non-forensic procedures. Performed By: #### B GLU #### [facility] [address] [place] [address] Hemogram w/ Autodiffon 06-03 Abs Baso Cnt 0.0 10*3/uL Normal 0.0-0.2 [facility] Comment on above: Performed By: #### B GLU #### [facility] [address] [place] [address] Abs Neutrophile Cnt 2.0 10*3/uL Normal 1.8-7.0 [facility] Comment on above: Performed By: #### B GLU #### [facility] [address] [place] [address] Basophils/100 WBC (Bld) 0.5 % Normal 0.0-2.0 [facility] Comment on above: Performed By: #### B GLU #### [facility] [address] [place] [address] Eosinophils (Bld) [#/Vol] 0.2 10*3/uL Normal 0.0-0.5 [facility] Comment on above: Performed By: #### B GLU #### [facility] [address] [place] [address] Eosinophils/100 WBC (Bld) 4.5 % Normal 1.0-6.0 [facility] Comment on above: Performed By: #### B GLU #### [facility] [address] [place] [address] Erythrocyte distribution width (RBC) [Ratio] 42.4 % High 11.5-14.5 [facility] Comment on above: Performed By: #### B GLU #### [facility] [address] [place] [address] Granulocytes/100 WBC (Bld) 50.8 % Normal 40.0-80.0 [facility] Comment on above: Performed By: #### B GLU #### [facility] [address] [place] [address] Hematocrit (Bld) [Volume fraction] 29.3 % Low 40.0-52.0 [facility] Comment on above: Performed By: #### B GLU #### [facility] [address] [place] [address] Hemoglobin (Bld) [Mass/Vol] 10.6 g/dL Low 13.0-18.0 [facility] Comment on above: Performed By: #### B GLU #### [place] [address] [place] [address] Lymphocytes (Bld) [#/Vol] 1.4 10*3/uL Normal 1.0-4.3 [facility] Comment on above: Performed By: #### B GLU #### [facility] [address] [place] [address] Lymphocytes/100 WBC (Bld) 34.8 % Normal 20.0-40.0 [facility] Comment on above: Performed By: #### B GLU #### [facility] [address] [place] [address] MCH (RBC) [Entitic mass] 34.4 pg High 26.0-34.0 [facility] Comment on above: Performed By: #### B GLU #### [facility] [address] [place] [address] MCHC 36.2 % High 32.0-36.0 [facility] Comment on above: Performed By: #### B GLU #### [facility] [address] [place] [address] MCV (RBC) [Entitic vol] 95.1 fL Normal 80.0-98.0 [facility] Comment on above: Performed By: #### B GLU #### [facility] [address] [place] [address] Monocytes (Bld) [#/Vol] 0.4 10*3/uL Normal 0.0-0.8 [facility] Comment on above: Performed By: #### B GLU #### [facility] [address] [place] [address] Monocytes/100 WBC (Bld) 8.7 % Normal 2.0-10.0 [facility] Comment on above: Performed By: #### B GLU #### [facility] [address] [place] [address] Platelet mean volume (Bld) [Entitic vol] 11.3 fL Normal 7.4-12.4 [facility] Comment on above: Result Comment: MPV is a calculated measurement using platelet volume ratio. Performed By: #### B GLU #### [facility] [address] [place] [address] Platelets (Bld) [#/Vol] 91 10*3/uL Low 140-440 [facility] Comment on above: Result Comment: Slid e scanned - slight thrombocytopenia Performed By: #### B GLU #### [facility] [address] [place] [address] RBC (Bld) [#/Vol] 3.08 10*6/uL Low 4.40-5.90 [facility] Comment on above: Performed By: #### B GLU #### [facility] [address] [place] [address] WBC (Bld) [#/Vol] 4.0 10*3/uL Normal 3.6-10.7 [facility] Comment on above: Performed By: #### B GLU #### [facility] [address] [place] [address] Lipaseon 06-03-2022 Lipase [Catalytic activity/Vol] 142 U/L Normal 23-300 [facility] Comment on above: Performed By: #### B GLU #### [facility] [address] [place] [address] Lipase [Catalytic activity/Vol] 142 U/L 23 - 300 U/L [facility] No Panel Informationon 06-03 Test Performed by [facility], [address] [place], [place] [id number] [place] [address] LAB [facility] Troponin Ion 06-03-2022 Troponin I.cardiac [Mass/Vol] ng/mL Normal 0.000-0.034 [facility] Comment on above: Result Comment: . Performed By: #### B GLU #### [facility] [address] [place] [address] Troponin x1on 06-03-2022 Troponin I.cardiac [Mass/Vol] ng/mL 0 - 0.034 ng/mL [facility] Comment on above: . Urinalysison 06-03-2022 Appearance (U) Clear Clear NA [facility] Comment on above: . Bilirubin Urine Negative [...] above: . Occult Blood,Urine Negative Negative mg/dL [facility] Comment on above: . pH (U) 5.5 [pH] [facility] Comment on above: . Specific [place], Urine 1.007 [facility] Comment on above: . Total Protein, Urine Negative Negativ e mg/dL [facility] Comment on above: . Urobilinogen, Urine Normal Normal ( 0-1) mg/dL [facility] Comment on above: . Volume 12 ml [facility] Comment on above: . Test Performed by [facility], [address] , [place], [place] [id number] [place] [address] LAB [facility] Basic Metabolic Panelon 04-19 Calcium [Mass/Vol] 9.3 mg/dL Normal 8.4-10.4 [facility] Comment on above: Performed By: #### N A3 #### [facility] [address] [place] [address] Glucose [Mass/Vol] 99 mg/dL Normal 70-100 [facility] Comment on above: Performed By: #### N A3 #### [facility] [address] [place] [address] Urea nitrogen [Mass/Vol] 5 mg/dL Low 7-17 [facility] Comment on above: Performed By: #### N A3 #### [facility] [address] [place] [address] Anion gap [Moles/Vol] 18 mmol/L High 3-13 [facility] Comment on above: Performed By: #### N A3 #### [facility] [address] [place] [address] CO2 [Moles/Vol] 12 mmol/L Low 22-30 [facility] Comment on above: Performed By: #### N A3 #### [facility] [address] [place] [address] Creatinine [Mass/Vol] 1.40 mg/dL High 0.52-1.25 [facility] Comment on above: Performed By: #### N A3 #### [facility] [address] [place] [address] GFR/1.73 sq M.predicted among blacks MDRD (S/P/Bld) [Vol rate/Area] 61.8 mL/min/{1.73_m2} Normal >60 [facility] Comment on above: Performed By: #### N A3 #### [facility] [address] [place] [address] GFR/1.73 sq M.predicted among non-blacks MDRD (S/P/Bld) [Vol rate/Area] 53.4 mL/min/{1.73_m2} Abnormal >60 [facility] Comment on above: Result Comment: KDIG O [...] #### N A3 #### [facility] [address] [place] [address] Potassium [Moles/Vol] 3.5 mmol/L Normal 3.5-5.1 [facility] Comment on above: Performed By: #### N A3 #### [facility] [address] [place] [address] Sodium [Moles/Vol] 137 mmol/L Normal 135-145 [facility] Comment on above: Performed By: #### N A3 #### [facility] [address] [place] [address] Chloride [Moles/Vol] 107 mmol/L Normal 98-107 [facility] Comment on above: Performed By: #### N A3 #### [facility] [address] [place] [address] Anion gap [Moles/Vol] 18 mmol/L High 3 - 13 mmol/L [facility] Work Phone: [phone] Calcium [Mass/Vol] 9.3 mg/dL 8.4 - 10. 4 mg/dL [facility] Work Phone: [phone] Chloride [Moles/Vol] 107 mmol/L 98 - 10 7 mmol/L [facility] Work Phone: ) [phone] CO2 [Moles/Vol] 12 mmol/L Low 22 - 30 mmol/L [facility] Work Phone: [phone] Creatinine [Mass/Vol] 1.4 mg/dL High 0.52 - 1.25 mg/dL [facility] Work Phone: [phone] EGFR IF NonAfrican Panamanian 53.4 mL/min Abnormal 60 - PINF mL/min [facility] Work Phone: [phone] Comment on above: [...] [Mass/Vol] 99 mg/dL 70 - 100 mg/dL [facility] Work Phone: [phone] Interpretation and review of laboratory results Abnormal [facility] Work Phone: [phone] Potassium [Moles/Vol] 3.5 mmol/L 3.5 - 5.1 mmol/L [facility] Work Phone: [phone] Sodium [Moles/Vol] 137 mmol/L 135 - 145 mmol/L [facility] Work Phone: [phone] Urea nitrogen (BldV) [Mass/Vol] 5 mg/dL Low 7 - 17 mg/dL [facility] Work Phone: [phone] Test Performed by [facility], [address] , [place], [place] [id number] [place] [address] LAB [facility] Work Phone: ) CBC with [...] Interpretation and review of laboratory results Abnormal [facility] Work Phone: [phone] Lymphocytes (Bld) [#/Vol] [...] 99.1 fL High 80 - 98 fL [facility] Work Phone: () Monocytes (Bld) [#/Vol] 0.4 10*3/uL 0 - 0.8 10*3/uL [facility] Work Phone: () [phone] Monocytes/100 WBC (Bld) 7.8 % 2 - 10 % [facility] Work Phone: [phone] Platelet distribution width (Bld) [Ratio] 13.0 % 11.5 - 14.5 % [facility] Work Phone: ) Platelet mean volume (Bld) [Entitic vol] 9.7 fL 7.4 - 12.4 fL [facility] Work Phone: [phone] Comment on above: MPV is a calculated measurement using platelet volume ratio. Platelets (Bld) [#/Vol] 112 10*3/uL Low 140 - 440 10*3/uL [facility] Work Phone: [phone] RBC (Bld) [#/Vol] 3.46 10*6/uL Low 4.4 - 5.9 10*6/uL [facility] Work Phone: [phone] WBC (Bld) [#/Vol] 5.1 10*3/uL 3.6 - 10.7 10*3/uL [facility] Work Phone: [phone] Test Performed by [facility], [facility] [address] , [address] LAB [facility] Work Phone: [phone] Abdomen Pelvis Wo Contras ton 05-15-2022 Patient Name: WOODY NI Computed Tomography ACCESSION EXAM DATE/TIME PROCEDURE ORDERING PROVIDER [id number] 05/15/2022 17:[address] Abdomen/Pelvis (No MD AMADA, HANY Lawson PO, No IV) CPT code 63880 Reason For Exam (CT Abdomen/Pelvis (No PO, [...] KRIKOR Transcribed Date and Time: 05/15/2022 5:59 [facility] Veronica Kam MD - 05/15/2022 Patient Name: WOODY NI Computed Tomography ACCESSION EXAM DATE/TIME PROCEDURE ORDERING PROVIDER [id number] 05/15/2022 17:[address] Abdomen/Pelvis (Soheila YBARRA MD, HANY Lawson PO, No IV) CPT code 51124 Reason For Exam (CT Abdomen/Pelvis (No PO, [...] Tomography ACCESSION EXAM DATE/TIME PROCEDURE ORDERING PROVIDER [id number] 05/15/2022 17:[address] Abdomen/Pelvis (No MD AMADA, HANY Lawson PO, No IV) CPT code 61153 Reason For Exam (CT Abdomen/Pelvis (No PO, [...] Time: 05/15/2022 5:59 Normal [facility] Complete Urinalysison 2021 Bacteria LM.HPF (Urine sed) [#/Area] Negative Normal Negative [facility] Comment on above: Result Comment: . Performed By: #### B GLU #### [facility] [address] [place] [address] Cast, Hyaline 0 - 2 Abnormal Negative [facility] Comment on above: Result Comment: . Performed By: #### B GLU #### [facility] [address] [place] [address] Mucous Threads Few Normal Negative [facility] Comment on above: Result Comment: . Performed By: #### B GLU #### [facility] [address] [place] [address] RBC LM.HPF (Urine sed) [#/Area] Negative Normal 0-2 [facility] Comment on above: Result Comment: . Performed By: #### B GLU #### [facility] [address] [place] [address] Squamous Epithelial 3 - 5 Normal 3-5 [facility] Comment on above: Result Comment: . Performed By: #### B GLU #### [facility] [address] [place] [address] VOLUME, URINE 12 ml Normal [facility] Comment on above: Result Comment: . Performed By: #### B GLU #### [facility] [address] [place] [address] WBC, Urine 0 - 2 Normal 0-5 [facility] Comment on above: Result Comment: . Performed By: #### B GLU #### [facility] [address] [place] [address] Appearance (U) Clear Normal Clear [facility] Comment on above: Result Comment: . Performed By: #### B GLU #### [facility] [address] [place] [address] Bilirubin,Urine Negative Normal Negative [facility] Comment on above: Result Comment: . Performed By: #### B GLU #### [facility] [address] [place] [address] Color (U) LIGHT YELLOW Normal Lt. Yellow [facility] Comment on above: Result Comment: . Performed By: #### B GLU #### [facility] [address] [place] [address] Glucose Ql (U) Normal Normal Normal (<70) [facility] Comment on above: Result Comment: . Performed By: #### B GLU #### [facility] [address] [place] [address] Ketone,Urine Negative Normal Negative [facility] Comment on above: Result Comment: . Performed By: #### B GLU #### [facility] [address] [place] [address] Leukocytes,Urine Negative Normal Negative [facility] Comment on above: Result Comment: . Performed By: #### B GLU #### [facility] [address] [place] [address] Nitrites,Urine Negative Normal Negative [facility] Comment on above: Result Comment: . Performed By: #### B GLU #### [facility] [address] [place] [address] Occult Blood,Urine Negative Normal Negative [facility] Comment on above: Result Comment: . Performed By: #### B GLU #### [facility] [address] [place] [address] pH,Urine 5.5 Normal 5.0-8.0 [facility] Comment on above: Result Comment: . Performed By: #### B GLU #### [facility] [address] [place] [address] Protein (U) [Mass/Vol] 20 mg/dL Abnormal Negative [facility] Comment on above: Result Comment: . Performed By: #### B GLU #### [facility] [address] [place] [address] Specific [place],Urine 1.006 Normal 1.005 - 1.030 [facility] Comment on above: Result Comment: . Performed By: #### B GLU #### [facility] [address] [place] [address] Urobilinogen,Urine Normal Normal Normal (0-1) [facility] Comment on above: Result Comment: . Performed By: #### B GLU #### [facility] [address] [place] [address] Hemogram w/ Autodiffon 05-15 Abs Baso Cnt 0.0 10*3/uL Normal 0.0-0.2 [facility] Comment on above: Performed By: #### N A3 #### [facility] [address] [place] [address] Abs Neutrophile Cnt 3.4 10*3/uL Normal 1.8-7.0 [facility] Comment on above: Performed By: #### N A3 #### [facility] [address] [place] [address] Basophils/100 WBC (Bld) 0.8 % Normal 0.0-2.0 [facility] Comment on above: Performed By: #### N A3 #### [place] [address] [place] [address] Eosinophils (Bld) [#/Vol] 0.0 10*3/uL Normal 0.0-0.5 [facility] Comment on above: Performed By: #### N A3 #### [facility] [address] [place] [address] Eosinophils/100 WBC (Bld) 0.2 % Low 1.0-6.0 [facility] Comment on above: Performed By: #### N A3 #### [facility] [address] [place] [address] Erythrocyte distribution width (RBC) [Ratio] 13.0 % Normal 11.5-14.5 [facility] Comment on above: Performed By: #### N A3 #### [facility] [address] [place] [address] Granulocytes/100 WBC (Bld) 67.5 % Normal 40.0-80.0 [facility] Comment on above: Performed By: #### N A3 #### [facility] [address] [place] [address] Hematocrit (Bld) [Volume fraction] 34.3 % Low 40.0-52.0 [facility] Comment on above: Performed By: #### N A3 #### [facility] [address] [place] [address] Hemoglobin (Bld) [Mass/Vol] 11.8 g/dL Low 13.0-18.0 [facility] Comment on above: Performed By: #### N A3 #### [facility] [address] [place] [address] Lymphocytes (Bld) [#/Vol] 1.2 10*3/uL Normal 1.0-4.3 [facility] Comment on above: Performed By: #### N A3 #### [facility] [address] [place] [address] Lymphocytes/100 WBC (Bld) 23.3 % Normal 20.0-40.0 [facility] Comment on above: Performed By: #### N A3 #### [facility] [address] [place] [address] MCH (RBC) [Entitic mass] 34.1 pg High 26.0-34.0 [facility] Comment on above: Performed By: #### N A3 #### [facility] [address] [place] [address] MCHC 34.4 % Normal 32.0-36.0 [facility] Comment on above: Performed By: #### N A3 #### [facility] [address] [place] [address] MCV (RBC) [Entitic vol] 99.1 fL High 80.0-98.0 [facility] Comment on above: Performed By: #### N A3 #### [facility] [address] [place] [address] Monocytes (Bld) [#/Vol] 0.4 10*3/uL Normal 0.0-0.8 [facility] Comment on above: Performed By: #### N A3 #### [facility] [address] [place] [address] Monocytes/100 WBC (Bld) 7.8 % Normal 2.0-10.0 [facility] Comment on above: Performed By: #### N A3 #### [facility] [address] [place] [address] Platelet mean volume (Bld) [Entitic vol] 9.7 fL Normal 7.4-12.4 [facility] Comment on above: Result Comment: MPV is a calculated measurement using platelet volume ratio. Performed By: #### N A3 #### [facility] [address] [place] [address] Platelets (Bld) [#/Vol] 112 10*3/uL Low 140-440 [facility] Comment on above: Performed By: #### N A3 #### [facility] [address] [place] [address] RBC (Bld) [#/Vol] 3.46 10*6/uL Low 4.40-5.90 [facility] Comment on above: Performed By: #### N A3 #### [facility] [address] [place] [address] WBC (Bld) [#/Vol] 5.1 10*3/uL Normal 3.6-10.7 [facility] Comment on above: Performed By: #### N A3 #### [facility] [address] [place] [address] Urinalysison 07-28-2022 Appearance (U) Clear Clear NA [facility] Work Phone: [phone] Comment on above: . Bacteria, UA Negative [...] Interpretation and review of laboratory results Abnormal [facility] Work Phone: [phone] Ql (U) Negative Negative mg/dL [facility] Work Phone: [phone] Comment on above: . LEUKOCYTES, UA Negative Negative Emma/uL [facility] Work Phone: [phone] Comment on above: . Mucous Threads Few Negative /[LPF] [facility] Work Phone: [phone] Comment on above: . Nitrite, Urine Negative Negative NA [facility] Work Phone: [phone] Comment on above: . Occult Blood,Urine Negative Negative mg/dL [facility] Work Phone: [phone] Comment on above: . pH (U) 5.5 [pH] [facility] Work Phone: [phone] Comment on above: . Protein (U) [Mass/Vol] 20 mg/dL Abnormal Negative [facility] Work Phone: [phone] Comment on above: . RBC (U) [#/Vol] Negative 0 - 2 /[HPF] [facility] Work Phone: [phone] Comment on above: . Specific [place], Urine 1.006 [facility] Work Phone: [phone] Comment on above: . Squam Epithel, UA 3-5 3 - 5 /[HPF] [facility] Work Phone: [phone] Comment on above: . Urobilinogen, Urine Normal Normal ( 0-1) mg/dL [facility] Work Phone: Comment on above: . Volume 12 ml [facility] Work Phone: Comment on above: . WBC, UA /[HPF] 0 - 5 /[HPF] [facility] Work Phone: Comment on above: . Test Performed by [facility], [address] , [address] LAB [facility] Work Phone: CT Abdomen Pelvis Wo Fannie ton 06-24-2020 Chris, [facility] Incoming Radiology Results From [facility] - 06/24/2020 11:47 PM EDT Patient Name: WOODY NI ---CT--- Exam Date/Time 06/24/2020 23:23:[address] Abdomen/Pelvis (No PO, No IV) Ordering Physician [id number] CANTU Accession Number [id number] CPT4 Codes 67032 (CT Abdomen/Pelvis (No PO, No IV)) Reason [...] WENDELL Transcribed Date and Time: 06/24/2020 11:47 [place] Patient Name: WOODY NI ---CT--- Exam Date/Time 06/24/2020 23:23:[address] Abdomen/Pelvis (No PO, No IV) Ordering Physician [id number] CANTU Accession Number [id number] CPT4 Codes 60156 (CT Abdomen/Pelvis (No PO, No IV)) Reason [...] WENDELL Transcribed Date and Time: 06/24/2020 11:47 [place] Comprehensive Metabolic Pane peter 06-24-2020 Albumin [Mass/Vol] 4.6 g/dL 3.5 - 5 g/dL [place] ALP [Catalytic activity/Vol] 62 U/L 38 - 126 U/L [place] ALT [Catalytic activity/Vol] 60 U/L High 0 - 49 U/L [place] Comment on above: The ALT test is perf ormed by an updated assay method. Please note that the reference intervals have been changed and are now sex specific. Anion gap [Moles/Vol] 13 mmol/L [place], [place] AST [Catalytic activity/Vol] 74 U/L High 15 - 46 U/L [place] Bilirubin Ql (U) 1.1 mg/dL 0.2 - 1.3 mg/dL [place] Calcium [Mass/Vol] 9.4 mg/dL 8.4 - 10. 4 mg/dL [place] Chloride [Moles/Vol] 100 mmol/L 98 - 10 7 mmol/L [place] CO2 [Moles/Vol] 26 mmol/L 22 - 30 mmol/L [place] Creatinine [Mass/Vol] 0.98 mg/dL 0.52 - 1.25 mg/dL [place] EGFR IF NonAfrican [place]amanian 83.2 mL/min >60 [place] Comment on above: KDIGO guidelines pro [...] MDRD (S/P/Bld) [Vol rate/Area] mL/min/{1.73_m2} >60 mL/min [place] Glucose [Mass/Vol] 108 mg/dL High 70 - 100 mg/dL [place] Interpretation and review of laboratory results Abnormal [place] Potassium [Moles/Vol] 3.4 mmol/L Low 3.5 - 5.1 mmol/L [place] Protein [Mass/Vol] 8.0 g/dL 6.3 - 8.2 g/dL [place] Sodium [Moles/Vol] 138 mmol/L 135 - 145 mmol/L [place] Urea nitrogen [Mass/Vol] 13 mg/dL 7 - 20 mg/dL [place] Hemogram (CBC) w/Auto Diffon 06-24-2020 Absolute Baso # 0.1 10*3/uL 0 - 0.2 10*3/uL [place] Absolute Neut # 3.6 10*3/uL 1.8 - 7 10*3/uL [place] Basophils/100 WBC (Bld) 0.7 % 0 - 2 % [place] Eosinophils (Bld) [#/Vol] 0.3 10*3/uL 0 - 0.5 10*3/uL [place] Eosinophils/100 WBC (Bld) 4.2 % 1 - 6 % [place] Erythrocyte distribution width (RBC) [Ratio] 13.5 % 11.5 - 14.5 % [place] Granulocytes/100 WBC (Bld) 50.8 % 40 - 80 % [place] Hematocrit (Bld) [Volume fraction] 44.5 % 40 - 52 % [place] Hemoglobin (Bld) [Mass/Vol] 15.0 g/dL 13 - 18 g/dL [place] Lymphocytes (Bld) [#/Vol] 2.7 10*3/uL 1 - 4.3 10*3/uL [place] Lymphocytes/100 WBC (Bld) 37.0 % 20 - 40 % [place] MCH (RBC) [Entitic mass] 32.1 pg 26 - 34 pg [place] MCHC (RBC) [Mass/Vol] 33.7 % 32 - 36 % [facility] [place] MCV (RBC) [Entitic vol] 95.2 fL 80 - 98 fL [place] Monocytes (Bld) [#/Vol] 0.5 10*3/uL 0 - 0.8 10*3/uL [place] Monocytes/100 WBC (Bld) 7.3 % 2 - 10 % [place] Platelet mean volume (Bld) [Entitic vol] 8.3 fL 7.4 - 10.4 fL [place] Platelets (Bld) [#/Vol] 157 10*3/uL 140 - 440 10*3/uL [place] RBC (Bld) [#/Vol] 4.67 10*6/uL 4.4 - 5.9 10*6/uL [place] WBC (Bld) [#/Vol] 7.2 10*3/uL 3.6 - 10.7 10*3/uL [place] Lipaseon 06-24-2020 Lipase [Catalytic activity/Vol] 26 U/L 23 - 300 U/L [place] Otheron 06-24-2020 Test Performed by [facility], [address] Test Performed by [facility], [address] Urinalysison 06-24-2020 Appearance (U) Clear Clear [place], [place] Comment on above: . Bilirubin Urine Negative Negative mg/dL [place] Comment on above: . Color (U) Light-Yellow Lt. Yellow [place] Comment on above: . Glucose, Ur Normal Normal (<70) mg/dL [place] Comment on above: . Ketones Ql (U) Negative Negative mg/dL [place] Comment on above: . LEUKOCYTES, UA Negative Negative Emma/uL [place] Comment on above: . Nitrite, Urine Negative Negative [place] Comment on above: . Occult Blood,Urine Negative Negative mg/dL [place] Comment on above: . pH (U) 6.0 [pH] [place] Comment on above: . Protein (U) [Mass/Vol] Negative Negat zenia mg/dL [place] Comment on above: . Specific [place], Urine 1.007 [place] Comment on above: . Urobilinogen, Urine Normal Normal ( 0-1) mg/dL [place] Comment on above: . XR CHEST PORTABLEon 06-24-20 Chris, [facility] Incoming Radiology Results From [facility] - 06/24/2020 10:50 PM EDT Patient Name: WOODY NI ---Diagnostic Radiology--- Exam Date/Time 06/24/2020 22:50:03 EDT Exam CR Chest Portable Ordering Physician MACK DAVIS Accession Number [id number] CPT4 Codes 81250 () Reason For Exam productive cough 3 [...] WENDELL Transcribed Date and Time: 06/24/2020 10:50 [place] Patient Name: WOODY NI ---Diagnostic Radiology--- Exam Date/Time 06/24/2020 22:50:03 EDT Exam CR Chest Portable Ordering Physician [id number] BERRY Accession Number [id number] CPT4 Codes 08137 () Reason For Exam productive cough 3 [...] WENDELL Transcribed Date and Time: 06/24/2020 10:50 [facility] [place], [place] CT ABDOMEN W CONTRAST Additi onal Contrast? Oralon 07-19-2019 Patient Name: WOODY NI ---CT--- Exam Date/Time 07/19/2019 10:40:[address] Abdomen w/ Contrast (IV Only) Ordering Physician [id number] -DANIEL LONDON Accession Number [id number] CPT4 Codes Q9967 (CT ISOVUE 370MG/ML&[id number]&ML&1 ), 55591 (CT Abdomen w/ Contrast (IV Only)) Reason [...] NELSON Transcribed Date and Time: 07/19/2019 1:34 [place], [place], [facility] Incoming Radiology Results From [facility] - 07/19/2019 1:34 PM EDT Patient Name: WOODY NI ---CT--- Exam Date/Time 07/19/2019 10:40:[address] Abdomen w/ Contrast (IV Only) Ordering Physician [id number] -DANIEL LONDON Accession Number [id number] CPT4 Codes Q9967 (CT ISOVUE 370MG/ML&[id number]&ML&1 ), 90543 (CT Abdomen w/ Contrast (IV Only)) Reason [...] NELSON Transcribed Date and Time: 07/19/2019 1:34 [facility], [facility] XR RIBS LEFT (2 VIEWS)on Patient Name: WOODY NI ---Diagnostic Radiology--- Exam Date/Time 07/19/2019 09:50:11 EDT Exam CR Ribs 2 Views Left Ordering Physician [id number] LIN Accession Number [id number] CPT4 Codes 52339 () Reason For Exam intercostal pain Report [...] JASON Transcribed Date and Time: 07/19/2019 9:50 [place], [facility] Incoming Radiology Results From [facility] - 07/19/2019 9:51 PM EDT Patient Name: WOODY NI ---Diagnostic Radiology--- Exam Date/Time 07/19/2019 09:50:11 EDT Exam CR Ribs 2 Views Left Ordering Physician DANIEL ARTEAGA Accession Number [id number] CPT4 Codes 43855 () Reason For Exam intercostal pain Report [...] JASON Transcribed Date and Time: 07/19/2019 9:50 [place] BUN 07-16-2019 Urea nitrogen [Mass/Vol] 20 mg/dL 7 - 20 mg/dL [place] Creatinine, Serumon 07-16-20 19 Creatinine [Mass/Vol] 1.13 mg/dL 0.52 - 1.25 mg/dL [place] EGFR IF NonAfrican Panamanian >60.0 >60 mL/min [place] Comment on above: Source- MDRD equatio n with creatinine calibration to IDMS(NKDEP) eGFR not recommended for drug dose adjustment GFR/1.73 sq M predicted among blacks MDRD (S/P/Bld) [Vol rate/Area] mL/min/{1.73_m2} >60 mL/min [place] Otheron 07-16-2019 Test Performed by [facility], [address] [place] [address]. [address] CASE MANAGEMon 06-20-2017 CASE MANAGEM HNO ID: [id number] thor: Emilee (Rn) ELEANOR Voervice: Case ManagementAuthor Type: Registered NurseType: Care Mgt Progress NoteFiled: 06/20/2017 11:32 AMNote Text:CARE MANAGEMENT DISCHARGE NOTESERVICE DATE: 06/20/2017SERVICE TIME: 11:25 AM LOS: 2 daysAdmission Date: 06/18/2017DISCHARGE ARRANGEMENT (list agency and phone number)Home and Home careProvider: [facility] [id number] COMMUNICATION:Primary Care Physician: Jani Quezada Phone Number: .[phone] - Received return call from Adama @ [facility] @11:30am and informed of patient discharge home today and all dc documentssent to office thru AllscriptsTRANSPORTATION ARRANGEMENTS:Car - Family to transport homeADDITIONAL CONTACT RESOURCES:FOLLOW UP: With Dr Holder in 1-2 weeks (or as already scheduled)[phone] NATURE: Emilee Vo RN PATIENT NAME: Woody NiDATE: June 20, 2017 : 11:25 AM PAGER/CONTACT #: [phone] [facility] 06-20-2017 CNDS HNO ID: [id number] thor: ELEANOR Vasquezervice: NeurosurgeryAuthor Type: Registered NurseType: Discharge SummariesFiled: 06/23/2017 7:04 PMNote Text:DISCHARGE SUMMARYPATIENT NAME: Woody Ni ADMISSION DATE: 06/18/2017MRN: [id number] DISCHARGE DATE: 06/20/2017Attending Physician: No att. providers [...] compression. The significant areas affected extend from A8mbjgcsn S1.?Operations During Hospitalization: L2, L3, L4, L5, [...] Medfluticasone (FLONASE) 50 mcg/actuation nasal sprayUse 1 Wheeler in the nose once daily as needed.Historical [...] RN PAGER:DATE: June 23, 2017TIME: 6:53 PM [facility] CONSULT PROGon 06-20-2017 CONSULT PROG HNO ID: [id number] thor: Vianey Lau: General Internal MedicineAuthor Type: [...] Vianey Tiwari MD PATIENT NAME: Woody Ni [facility] NURSING PROGon 06-20-2017 NURSING PROG HNO ID: [id number] thor: Leonora (Rn) ELEANOR Srivastavaervice: (none)Author Type: Registered NurseType: Nursing Progress NoteFiled: 06/20/2017 10:39 AMNote Text:Discharge instructions provided regarding laminectomy, percoset, follow upappointment. Questions answered, patient verbalized understanding.Discharged via wheelchair with spouse and PCNA. [facility] PROGRESSon 06-20-2017 PROGRESS HNO ID: [id number] thor: Abel Londono: NeurosurgeryAuthor Type: PhysicianType: Progress [...] SERVICE: 06/20/2017TIME of SERVICE: 9:25 AM Normal [facility] Basic Metabolic Panlon 06-19 Anion gap 9 mmol/L Normal 0-15 [facility] Comment on above: Performed By: #### C ONABO ####[facility] [address] [place] [address] Calcium 8.4 mg/dL Low 8.5-10.5 [facility] Comment on above: Performed By: #### C ONABO ####[facility] [address] [place] [address] Chloride 102 mmol/L Normal 98-110 [facility] Comment on above: Performed By: #### C ONABO ####[facility] [address] [place] [address] CO2 32 mmol/L Normal 23-32 [facility] Comment on above: Result Comment: Rech ecked Performed By: #### C ONABO ####[facility] [address] [place] [address] Creatinine 0.86 mg/dL Normal 0.70-1.40 [facility] Comment on above: Performed By: #### C ONABO ####[facility] [address] [place] [address] eGFR (non-black) mL/min/{1.73_m2} Normal [facility] Comment on above: Performed By: #### C ONABO ####[facility] [address] [place] [address] Result Comment: eGFR (Estimated GFR) Units of [...] Glucose mass conc 114 mg/dL High 65-100 [facility] Comment on above: Performed By: #### C ONABO ####[facility] [address] [place] [address] Potassium molar conc 3.4 mmol/L Low 3.5-5.0 [facility] Comment on above: Performed By: #### C ONABO ####[facility] [address] [place] [address] Sodium 143 mmol/L Normal 135-146 [facility] Comment on above: Performed By: #### C ONABO ####[facility] [address] [place] [address] Urea nitrogen 6 mg/dL Low 10-25 [facility] Comment on above: Performed By: #### C ONABO ####[facility] [address] [place] [address] CASE MANAGEMon 06-19-2017 CASE MANAGEM HNO ID: [id number] thor: Vanesa (Rn) ELEANOR Wilsonervice: Case ManagementAuthor [...] 19, 2017 : 2:47 PM PAGER/CONTACT #: [phone] Normal [facility] CBCon 06-19-2017 Erythrocyte distribution width Auto Ratio (RBC) 14.0 % Normal 11.5-15.0 [facility] Comment on above: Performed By: #### C ONABO ####[facility] [address] [place] [address] Erythrocytes (RBC) 4.15 10*6/uL Low 4.20-6.00 [facility] Comment on above: Performed By: #### C ONABO ####[facility] [address] [place] [address] Hematocrit (HCT) 37.8 % Low 39.0-51.0 [facility] Comment on above: Performed By: #### C ONABO ####[facility] [address] [place] [address] Hemoglobin mass conc (Bld) 12.9 g/dL Low 13.0-17.0 [facility] Comment on above: Performed By: #### C ONABO ####[facility] [address] [place] [address] MCH 31.1 pG Normal 26.0-34.0 [facility] Comment on above: Performed By: #### C ONABO ####[facility] [address] [place] [address] MCHC mass conc (RBC) 34.1 g/dL Normal 30.5-36.0 [facility] Comment on above: Performed By: #### C ONABO ####[facility] Ljxvmpridu6425 [address] MCV 91.1 fL Normal 80.0-100.0 [facility] Comment on above: Performed By: #### C ONABO ####[facility] Kspyrodtpn9554 [address] Platelet mean volume (PMV) 11.1 fL Normal 9.0-12.7 [facility] Comment on above: Performed By: #### C ONABO ####[facility] Qiqbmwfcxy8451 [address] Platelets 122 10*3/uL Low 150-400 [facility] Comment on above: Performed By: #### C ONABO ####[facility] Zsuncpjwol1647 [address] WBC (Leukocytes) 8.26 10*3/uL Normal 3.70-11.00 [facility] Comment on above: Performed By: #### C ONABO ####[facility] [address] [place], [place] [phone] CONSULT PROGon 06-19-2017 CONSULT PROG HNO ID: [id number] thor: Vianey Lau: General Internal MedicineAuthor Type: [...] Vianey Tiwari MD PATIENT NAME: Woody Ni [facility] NURSING PROGon 06-19-2017 NURSING PROG HNO ID: [id number] thor: Zachariah LarsenRn) Doug Mcpherson: NursingAuthor Type: Registered NurseType: Nursing Progress NoteFiled: 06/19/2017 11:39 AMNote Text: Nursing Progress NotePatient Name: Woody NiMRN: [id number] [id number] 0745- Assessment complete. Patient extremely agitated, belligerent [...] she said he slept most of the mwrxs9858- Patient says he is not "having bad thoughts" any longer since hereceived his Lexapro.This note was completed by: Zachariah Mcpherson RN [facility] NURSING PROG HNO ID: [id number] thor: Ida Torres) Doug Gibson: (none)Author Type: [...] scheduled for 4x's during the day not [id number], his flexeril 3x's a day as needed, [...] agitated stating I was lying about himsleeping. [facility] PROGRESSon 06-19-2017 PROGRESS HNO ID: [id number] thor: Korin Gatese: NeurosurgeryAuthor Type: Nurse PractitionerType: [...] orderedDiscussed with Dr. BurtATURE: Korin E Guilda, CITIZENSHIP INSTRUCTOR PATIENT NAME: Woody PosadaTE: June 19, 2017 : 9:17 AM PAGER: [phone] [facility] THERAPY NTon 06-19-2017 THERAPY NT HNO ID: [id number] thor: Emilee (Ot/L) CecilService: Occupational TherapyAuthor Type: Occupational TherapistType: Therapy (PT/OT/Speech/Resp)Filed: 06/19/2017 1:34 PMNote Text:Occupational Therapy EvaluationSERVICE DATE: 06/19/2017SERVICE TIME: 1105 to 1142ROOM: [id number] Discharge Disposition: Home OTRecommended Discharge Disposition Comments: [...] activities of dailyliving (ADL)Interventions Provided: Evaluation;Therapeutic Activity (65759);Self CareHome Management (76490)$ Evaluation-Low (96573) Billed Units: 1 unitTherapeutic Activity (75345) Treatment Minutes: 101 unitSkilled Intervention(s): Pt instructed [...] sit with log roll technique.Self Prison Management (56519) Treatment Minutes: 141 unitSkilled Intervention(s): Pt educated [...] safe technique fordonning/doffing pants/underwear with use of production sampler. Pt educated on useof long handled sponge [...] With: Family (spouse and grand kids)Assistance Available: multimedia project manager (works 3-9 during week)Entry To Home: Stairs;Without [...] distal: NT per pt request d/t IVplacement, neurology tech: WFLRight Upper Extremity Strength: Prox: 4/5, distal: 4/5, neurology tech: WFLBalance: Dynamic Standing;Static StandingStatic Standing Balance: Stand [...] June 19, 2017 : 1:21 PM PAGER: [phone] [facility] THERAPY NT HNO ID: [id number] thor: Samantha (Pt) Gaele: Physical TherapyAuthor Type: Physical TherapistType: Therapy (PT/OT/Speech/Resp)Filed: 06/19/2017 11:21 AMNote Text:Physical Therapy EvaluationSERVICE DATE: 06/19/2017SERVICE TIME: 1003 to 1038 time allowed for chart reviewROOM: [id number] Discharge Disposition: Home PTRecommended Discharge Disposition Comments: [...] Weakness(generalized);Uns teadiness on feetInterventions Provided: Evaluation;Therapeutic Activity (87965);GaitTraining (78831)$ Evaluation-Low (97441) Billed Units: 1 unitTherapeutic Activity (63064) Treatment Minutes: 141 unitSkilled Intervention(s):Instructe d patient [...] stabilitywith gait, parameters of wearing LSOGait Training (38982) Treatment Minutes: 50 unitsSkilled Intervention(s):Instructi on in [...] With: Family (spouse and grand kids)Assistance Available: multimedia project manager (works 3-9 during week)Entry To Home: Stairs;Without [...] ns: Intact and as follows: peripheral IV, J7Wujglw see discipline specific clinical documentation flowsheet forcomplete details for this therapy evaluation/treatment.SIGN ATURE: Samantha Trujillo PT PATIENT NAME: Woody PosadaTE: June 19, 2017 : 11:01 AM PAGER/CONTACT #: [phone] [facility] ANES Parminder 06-18-2017 ANES POST HNO ID: [id number] thor: Emmanuelle Grecoervice: AnesthesiologyAuthor Type: AnesthesiologistType: Anesthesia [...] 18, 2017 : 3:44 PM PAGER/CONTACT #: [phone] [facility] ANES PREOPon 06-18-2017 ANES PREOP HNO ID: [id number] thor: Emmanuelle Grecoervice: AnesthesiologyAuthor Type: AnesthesiologistType: Anesthesia [...] June 18, 2017 : 11:19 AM CSN: [id number] [facility] BRIEF OP NOTon 06-18-2017 BRIEF OP NOT HNO ID: [id number] thor: Abel J DonichService: NeurosurgeryAuthor Type: PhysicianType: Brief Op NoteFiled: 06/18/2017 2:28 PMNote Text:BRIEF OPERATIVE NOTEPatient Name: Woody NiMRN: [id number] ID: [id number] Date: 06/18/2017Surgeon(s) and Experience Design Director(s):Surgeon(s) and Role: * Abel Holder - PrimaryProcedures and Anesthesia:Procedure(s) and Anesthesia Type: * DECOMPRESSION LAMINECTOMY LUMBAR POSTERIOR LEVEL 1 WITH C ARM -General * DECOMPRESSION LAMINECTOMY 1ST ADD'L LUMBAR SEGMENT - GeneralFindings: See full op reportEstimated Blood Loss: 150ccIntravenous Fluids: see anesthesiaCondition: goodSpecimens: nonePostop Diagnosis: lumbar stenosisSignature: Abel Holder, MDDate: June 18, 2017Time: 2:28 PM [facility] CASE MGT INIT [facility] 2016 CASE MGT [facility] HNO ID: [id number] thor: Monica (Rn) ELEANOR Maloneervice: Care ManagementAuthor Type: Registered NurseType: Care Mgt Initial AssessmentFiled: 06/18/2017 8:00 PMNote Text:CARE MANAGEMENT: ASSESSMENT AND DISCHARGE PLANSERVICE DATE: 06/18/2017SERVICE TIME: IMARY CARE PHYSICIAN:Jani Quezada, SANIYAhone: [phone] STATUS: InpatientPOTENTIAL DISCHARGE PLANSHomeHome OT/PTSkilled Nursing Facility/Intermediate Care FacilityTo Be DeterminedPatient/Represe ntative Stated Goals: to return homeNeeds Prior to Discharge: To Be Determined;OT/PT EvaluationHealth Insurance: Medicare, MedicaidLiving Arrangement: HomeLives With: with sig. otherFinancial Resources: DisabledPrimary Contact:Extended Emergency Contact InformationPrimary Emergency Contact: Susie Carl Ipjqurpa: Significant otherSupportive: YesOther Important Patient Contacts: NoneCAREGIVER [...] Prior to Admission: Aerosols/Intermittent positivebreathing/Respira tory TreatmentsBedside [facility]:Health Issues Impacting Discharge Plan: [...] days? NoHas the Patient Been in a [facility] Facility in the Past 30 days? NoFREEDOM [...] 18, 2017 : 7:55 PM PAGER/CONTACT #: [phone] [facility] CONSULTon 06-18-2017 CONSULT HNO ID: [id number] thor: Vianey SharmaService: General Internal MedicineAuthor Type: [...] PATIENT NAME: Woody Martin: June 18, 2017 [facility] HISTORY PHYSICALon 7 HISTORY PHYSICAL HNO ID: [id number] thor: Abel HolderService: NeurosurgeryAuthor Type: PhysicianType: HANDPFiled: [...] June 18, 2017 : 12:09 PM PAGER: [facility] NURSING PROGon 06-18-2017 NURSING PROG HNO ID: [id number] thor: Josefina LarsenRnELEANOR Glezervice: NursingAuthor Type: Registered NurseType: Nursing Progress NoteFiled: 06/18/2017 11:10 AMNote Text:1010 pt to ASCU 7. AANDOx3. SENIOR TCX4. Ambulates with cane. Pt c/o back pain.PIV started without difficulty. VSS no s/sx of distress.1057 pt ready for OR. Family @ BS. Normal [facility] OPERATIVE NOon 06-18-2017 OPERATIVE NO HNO ID: [id number] thor: Abel HolderService: NeurosurgeryAuthor Type: PhysicianType: Operative ReportFiled: 06/20/2017 9:08 AMNote Text:[facility]- Operative ReportWOODY NIDOB: 1960 AGE: 57 SEX: MMRN: [id number] ACCTNUM: [id number] SVC: [facility] LOCATION: [id number] PHYSICIAN: Abel Holder M.D.DATE OF PROCEDURE: 06/18/2017SURGEON: Abel Holder M.D.ELECTRIC TAPE SLITTER: Korin Lee CLOTHESPIN MACHINE OPERATOR.ANESTHESIA:PREOPERATI VE DIAGNOSIS(ES): L2-S1 spondylosis, stenosis, intractable lowback [...] Postanesthesia Care Unit in satisfactory condition.Abel Holder M.D.NeurosurgeryDD:[id number]: 06/18/2017 14:26:21T: 06/18/2017 23:12:00Job #: [id number] [facility] XR FLUOROSCOPYon 06-18-2017 XR FLUOROSCOPY * * [...] surgical instrument overlying the posterior lowest lumbar level.Mixing And Dispensing Supervisor: HAJA Transcribe Date/Time: Jun 19 2017 7:09ADictated by : JERRY WINSTON MDThis examination was interpreted and the report reviewed and electronically signed by: JERRY WINSTON MD on Jun 19 2017 7:09AM EST Normal [facility] NURSING PROGon 06-11-2017 NURSING PROG HNO ID: [id number] thor: Anna (Rn) Kel, RNService: (none)Author Type: Registered NurseType: Nursing Progress NoteFiled: 06/11/2017 7:46 AMNote Text:PACC visit complete on 06/10/17. HANDP by Aron Meeks CNP. Cbc/diff, Cmp,Pt/Ptt, TANDS and conabo from 06/10/17 results reviewed in chart. EKG dated05/28/17 and stress test dated 06/08/17 reviewed in chart with scan date of06/10/17. Chart check complete. Anna Begum RN [facility] APTTon 06-10-2017 aPTT 26.2 s Normal 23.0-32.4 [facility] Comment on above: Result Comment: The APTT [...] reagent. Performed By: #### P T, PTT ####[facility] [place], [place] [phone] CBC and Differentialon 06-10 Abs Baso 0.05 k/uL Normal 0.00-0.10 [facility] Comment on above: Performed By: #### C BCDIF, CMP ####[facility] [phone] Abs Hughes 0.61 k/uL Normal 0.00-0.86 [facility] Comment on above: Performed By: #### C BCDIF, CMP ####[place] [address] [address] [phone] Abs Neut 4.65 k/uL Normal 1.45-7.50 [facility] Comment on above: Performed By: #### C BCDIF, CMP ####[place] [address] [address] [phone] Basophils/100 WBC Auto (Bld) 0.6 % Normal [facility] Comment on above: Performed By: #### C BCDIF, CMP ####[place] [address] [address] [phone] DTYPE Auto Diff Normal [facility] Comment on above: Performed By: #### C BCDIF, CMP ####[place] [address] [phone] Eosinophils 0.08 10*3/uL Normal 0.00-0.45 [facility] Comment on above: Performed By: #### C BCDIF, CMP ####[place] [address] [address] [phone] Eosinophils/100 leukocytes 0.9 % Normal [facility] Comment on above: Performed By: #### C BCDIF, CMP ####[place] [address] [address] [phone] Erythrocyte distribution width Auto Ratio (RBC) 13.1 % Normal 11.5-15.0 [facility] Comment on above: Performed By: #### C BCDIF, CMP ####[place] [address] [address] [phone] Erythrocytes (RBC) 0.00 10*6/uL Normal [facility] Comment on above: Performed By: #### C BCDIF, CMP ####[place] [address] [address] [phone] Erythrocytes (RBC) 0.0 /100 WBC Normal 0 [facility] Comment on above: Performed By: #### C BCDIF, CMP ####[place] [address] [address] [phone] Erythrocytes (RBC) 5.13 10*6/uL Normal 4.20-6.00 [facility] Comment on above: Performed By: #### C BCDIF, CMP ####[place] [address] [address] [phone] Hematocrit (HCT) 46.4 % Normal 39.0-51.0 [facility] Comment on above: Performed By: #### C BCDIF, CMP ####[place] [address] [address] [place] [phone] Hemoglobin mass conc (Bld) 15.8 g/dL Normal 13.0-17.0 [facility] Comment on above: Performed By: #### C BCDIF, CMP ####[place] [address] [address] [place] [phone] Lymphocytes 3.47 10*3/uL Normal 1.00-4.00 [facility] Comment on above: Performed By: #### C BCDIF, CMP ####[place] [address] [address] [phone] Lymphocytes/100 leukocytes 39.2 % Normal [facility] Comment on above: Performed By: #### C BCDIF, CMP ####[place] [address] [address] [phone] MCH 30.8 pG Normal 26.0-34.0 [facility] Comment on above: Performed By: #### C BCDIF, CMP ####[place] [address] [address] [phone] MCHC mass conc (RBC) 34.1 g/dL Normal 30.5-36.0 [facility] Comment on above: Performed By: #### C BCDIF, CMP ####[place] [address] [place], [place] [phone] MCV 90.4 fL Normal 80.0-100.0 [facility] Comment on above: Performed By: #### C BCDIF, CMP ####[place] [address] [address] [place], [place] [phone] Monocytes/100 leukocytes 6.9 % Normal [facility] Comment on above: Performed By: #### C BCDIF, CMP ####[place] [address] [address] [place], [place] [phone] Neutrophils/100 WBC Auto (Bld) 52.4 % Normal [facility] Comment on above: Performed By: #### C BCDIF, CMP ####[address] [phone] Platelet mean volume (PMV) 11.0 fL Normal 9.0-12.7 [facility] Comment on above: Performed By: #### C BCELEAZARF, CMP ####[place] [address] [address] [place], [place] [phone] Platelets 224 10*3/uL Normal 150-400 [facility] Comment on above: Performed By: #### C BCDIF, CMP ####[place] [address] [place], [place] [phone] WBC (Leukocytes) 8.86 10*3/uL Normal 3.70-11.00 [facility] Comment on above: Performed By: #### C BCDIF, CMP ####[place] [address] [address] [place], [place] [phone] Comp Metabolic Panelon 06-10 Alanine aminotransferase (ALT) 47 U/L Normal 10-54 [facility] Comment on above: Performed By: #### C BCDIF, CMP ####[address], [place] [phone] Albumin 4.9 g/dL Normal 3.9-4.9 [facility] Comment on above: Performed By: #### C BCDIF, CMP ####[place] [address] [address] [phone] Alkaline phosphatase (ALP) 64 U/L Normal 36-108 [facility] Comment on above: Performed By: #### C BCDIF, CMP ####[place] [address] [address] [phone] Anion gap 17 mmol/L Normal 9-18 [facility] Comment on above: Performed By: #### C BCDIF, CMP ####[place] [address] [address] [place] [phone] Aspartate aminotransferase (AST) 44 U/L High 14-40 [facility] Comment on above: Performed By: #### C BCDIF, CMP ####[place] [address] [address] [place] [phone] Bilirubin (total) 1.0 mg/dL Normal 0.2-1.3 [facility] Comment on above: Performed By: #### C BCDIF, CMP ####[place] [address] [address] [place] [phone] Calcium 9.4 mg/dL Normal 8.5-10.2 [facility] Comment on above: Performed By: #### C BCDIF, CMP ####[place] [address] [address] [phone] Chloride 96 mmol/L Low 97-105 [facility] Comment on above: Performed By: #### C BCDIF, CMP ####[place] [address] [address] [phone] CO2 21 mmol/L Low 22-30 [facility] Comment on above: Performed By: #### C BCDIF, CMP ####[place] [address] [place], [place] [phone] Creatinine 1.02 mg/dL Normal 0.73-1.22 [facility] Comment on above: Performed By: #### C LUCIANO, CMP ####[facility] [place], [place] [phone] eGFR (non-black) mL/min/{1.73_m2} Normal [facility] Comment on above: Performed By: #### C LUCIANO, CMP ####[address] [phone] Result Comment: eGFR (Estimated GFR) Units of [...] Glucose mass conc 103 mg/dL High 74-99 [facility] Comment on above: Result Comment: The [place] Diabetes Association (ADA) provides guidance for cutoff [...] Standards of Medical Care in Diabetes 2016, [place] [employer]. Diabetes Care. 2016.39(Suppl 1). Performed By: #### C LUCIANO, CMP ####[facility] [place], [place] [phone] Potassium molar conc 3.8 mmol/L Normal 3.7-5.1 [facility] Comment on above: Performed By: #### C BCDIF, CMP ####[facility] [address] [place], [place] [phone] Protein 7.4 g/dL Normal 6.3-8.0 [facility] Comment on above: Performed By: #### C BCDIF, CMP ####[facility] [address] AveCBr[address] [place], [place] [phone] Sodium 134 mmol/L Low 136-144 [facility] Comment on above: Performed By: #### C BCDIF, CMP ####[facility] [address] AveCBrian V[place] [phone] Urea nitrogen 9 mg/dL Normal 9-24 [facility] Comment on above: Performed By: #### C BCDIF, CMP ####[facility] [address], [place] [phone] Confirm Blood Typeon 017 ABO/RH(D) Positive Normal [facility] Comment on above: Performed By: #### C ONABO ####[facility] [address] [place] [phone] HISTORY PHYSICALon 7 HISTORY PHYSICAL HNO ID: [id number] thor: Debora (Microwave Radio Technician) KELLY MeeksService: (none)Author Type: Nurse PractitionerType: HANDPFiled: 06/10/2017 10:29 AMNote Text:HISTORY AND PHYSICAL EXAMINATIONSERVICE DATE: 06/10/2017SERVICE TIME: 9:30 [facility]PRIBEACON [facility]: MORRIS Hoffmann FOR VISIT:Woody [...] (FLONASE) 50 mcg/actuation nasal spray Use 1 Wheeler in the noseonce daily as needed. Yesfurosemide [...] Normalstress test earlier this month. Denies CP, VA, DVT, PE, lightheaded,dizziness, palpitations or CHF.GI: Positive [...] results within date range.No results found for: CMD7QPoot recent labsMost recent imaging in Care EverywhereMost recent stress test in Care EverywhereEKG requested from Dr. Quezada' officeAssessmentASSESSClover Hill Hospital - Advised to continue same medication.Diabetes [...] pending LABS.CBC, CMP and EKG scanned into [facility].CONSULTS:Patient does not require consults for optimization at this time.The Following Tests/Procedures Have Been Initiated:Orders Placed This Encounter ACTIVATED PTT PROTHROMBIN TIME/PT TYPE + SCREEN,30 DAY CONABOPlanned Anesthetic: GeneralInstructions Given to Patient:Patient given verbal and written preop instructions and voicescomprehension and compliance.SIGNATURE: Debora Meeks CNP PATIENT NAME: Woody NiDATE: June 10, 2017 : 9:30 AM PAGER/CONTACT #: [facility] Protimeon 06-10-2017 INR Coag RelTime (Bld) 1.1 {INR} Normal 0.8-1.2 [facility] Comment on above: Result Comment: The [...] 233S. Performed By: #### P T, PTT ####[facility] [place], [place] [phone] PT Sec 12.1 sec Normal 8.4-13.0 [facility] Comment on above: Performed By: #### P T, PTT ####[facility] [place], [place] [phone] Type and SCR (30D)on 017 ABO/RH(D) Positive [facility] Comment on above: Performed By: #### T SCR30 ####[facility] [address] [phone] Antibody Screen Negative [facility] Comment on above: Performed By: #### T SCR30 ####[facility] Pvstsrdunq4623 [phone] HOSPon 05-27-2017 HOSP [...] 3.7HEMA* 46.4 % 06/10/2017 51.0 39.0Progress Notes ([facility]):Neisha Reyes MD 06/05/2017 11:03 AM Josesito Ni [...] Reyes MDDATE: 06/05/17TIME: 10:57 AMPrevious Version Normal [facility] Vital Signs Date Time Vital Sign Value Performing Clinician Facility 07-10-2024 15:01-0400 Body temperature 98.2 [degF] Ashley Bell MD Work Phone: [facility] 07-10-2024 15:01-0400 Diastolic blood pressure 82 mm[Hg] Ashley Bell MD Work Phone: [facility] 07-10-2024 15:01-0400 Heart rate 106 /min Ashley Bell MD Work Phone: [facility] 07-10-2024 15:01-0400 Respiratory rate 16 /min Ashley Bell MD Work Phone: [facility] 07-10-2024 15:01-0400 SaO2% (BldA) [Mass fraction] 96 % Ashley Bell MD Work Phone: [email or web address] 07-10-2024 15:01-0400 Systolic blood pressure 135 mm[Hg] Ashley Bell MD Work Phone: [email or web address] 07-05-2024 00:28-0400 Body height 177.8 cm Ashley Bell MD Work Phone: [facility] 07-05-2024 00:28-0400 Body mass index (BMI) [Ratio] 23.53 kg/m2 Ashley Bell MD Work Phone: [facility] 07-05-2024 00:28-0400 Body weight 74.4 kg Ashley Bell MD Work Phone: [facility] 04-30-2024 07:29-0400 Body temperature 96.3 [degF] Kassandra Adkins MD Work Phone: [facility] 04-30-2024 07:29-0400 Diastolic blood pressure 74 mm[Hg] Kassandra Adkins MD Work Phone: [facility] 04-30-2024 07:29-0400 Heart rate 68 /min Kassandra Adkins MD Work Phone: [facility] 04-30-2024 07:29-0400 Respiratory rate 17 /min Kassandra Adkins MD Work Phone: [facility] 04-30-2024 07:29-0400 SaO2% (BldA) [Mass fraction] 99 % Kassandra Adkins MD Work Phone: [email or web address] 04-30-2024 07:29-0400 Systolic blood pressure 134 mm[Hg] Kassandra Adkins MD Work Phone: [facility] 04-30-2024 06:11-0400 Body mass index (BMI) [Ratio] 25.68 kg/m2 Kassandra Adkins MD Work Phone: [facility] 04-30-2024 06:11-0400 Body weight 81.19 kg Kassandra Adkins MD Work Phone: [facility] 04-22-2024 20:43-0400 Body height 177.8 cm Kassandra Adkins MD Work Phone: [facility] 04-04-2024 17:44-0400 Diastolic blood pressure 75 mm[Hg] Júnior Lo MD Work Phone: [facility] 04-04-2024 17:44-0400 Heart rate 96 /min Júnior Lo MD Work Phone: [facility] 04-04-2024 17:44-0400 Respiratory rate 17 /min Júnior Lo MD Work Phone: [facility] 04-04-2024 17:44-0400 Systolic blood pressure 140 mm[Hg] Júnior Lo MD Work Phone: [facility] 04-04-2024 16:45-0400 SaO2% (BldA) [Mass fraction] 100 % Júnior Lo MD Work Phone: [email or web address] 04-04-2024 15:28-0400 Body height 177.8 cm Júnior Lo MD Work Phone: [facility] 04-04-2024 15:28-0400 Body mass index (BMI) [Ratio] 22.96 kg/m2 Júnior Lo MD Work Phone: [facility] 04-04-2024 15:28-0400 Body temperature 97.3 [degF] Júnior Lo MD Work Phone: [email or web address] 04-04-2024 15:28-0400 Body weight 72.58 kg Júnior Lo MD Work Phone: [facility] 03-09-2024 10:31-0400 Diastolic blood pressure 92 mm[Hg] Nir Driscoll DO Work Phone: [facility] 03-09-2024 10:31-0400 Systolic blood pressure 166 mm[Hg] Nir Driscoll DO Work Phone: [facility] 03-09-2024 09:45-0400 Heart rate 103 /min Nir Driscoll DO Work Phone: [employer] 03-09-2024 09:45-0400 Respiratory rate 16 /min Nir Driscoll DO Work Phone: [employer] 03-09-2024 09:45-0400 SaO2% (BldA) [Mass fraction] 98 % Nir Driscoll DO Work Phone: [facility] 03-08-2024 22:34-0400 Body height 177.8 cm Nir Driscoll DO Work Phone: [employer] 03-08-2024 22:34-0400 Body mass index (BMI) [Ratio] 23.68 kg/m2 Nir Driscoll DO Work Phone: [facility] 03-08-2024 22:34-0400 Body weight 74.84 kg Nir Driscoll DO Work Phone: [employer] 03-08-2024 22:32-0400 Body temperature 97.9 [degF] Nir Driscoll DO Work Phone: [employer] [email or web address] 01-26-2024 07:47-0400 Body temperature 97.39 [degF] Daniel Ewing DO Work Phone: [email or web address] 01-26-2024 07:47-0400 Diastolic blood pressure 78 mm[Hg] Daniel Gombash DO Work Phone: [employer] 01-26-2024 07:47-0400 Heart rate 82 /min Daniel Gombash DO Work Phone: [employer] 01-26-2024 07:47-0400 Respiratory rate 18 /min Daniel Gombash DO Work Phone: [employer] 01-26-2024 07:47-0400 SaO2% (BldA) [Mass fraction] 97 % Daniel Gombash DO Work Phone: [facility] 01-26-2024 07:47-0400 Systolic blood pressure 138 mm[Hg] Daniel Gombash DO Work Phone: [facility] 01-26-2024 05:50-0400 Body mass index (BMI) [Ratio] 24.85 kg/m2 Daniel Gombash DO Work Phone: [facility] 01-26-2024 05:50-0400 Body weight 78.56 kg Daniel Gombash DO Work Phone: [facility] 01-19-2024 09:58-0400 Body height 177.8 cm Daniel Gombash DO Work Phone: [employer] 10-27-2023 11:46-0500 Body temperature 97.39 [degF] Khurram Bob MD Work Phone: [employer] 10-27-2023 11:46-0500 Diastolic blood pressure 93 mm[Hg] Khurram Bob MD Work Phone: [facility] 10-27-2023 11:46-0500 Heart rate 101 /min Khurram Bob MD Work Phone: [facility] 10-27-2023 11:46-0500 Respiratory rate 16 /min Khurram Bob MD Work Phone: [employer] 10-27-2023 11:46-0500 SaO2% (BldA) [Mass fraction] 97 % Khurram Bob MD Work Phone: [employer] 10-27-2023 11:46-0500 Systolic blood pressure 134 mm[Hg] Khurram Bob MD Work Phone: [email or web address] 10-22-2023 10:18-0500 Body height 177.8 cm Khurram Bob MD Work Phone: [email or web address] 10-21-2023 17:52-0500 Body mass index (BMI) [Ratio] 22.96 kg/m2 Khurram Bob MD Work Phone: [email or web address] 10-21-2023 17:52-0500 Body weight 72.58 kg Khurram Bob MD Work Phone: [facility] [employer] 07-05-2023 07:36-0400 Body temperature 98.29 [degF] Steve Whitley MD Work Phone: [facility] 07-05-2023 07:36-0400 Diastolic blood pressure 90 mm[Hg] Steve Whitley MD Work Phone: [facility] 07-05-2023 07:36-0400 Heart rate 89 /min Steve Whitley MD Work Phone: [facility] 07-05-2023 07:36-0400 Respiratory rate 17 /min Steve Whitley MD Work Phone: [facility] 07-05-2023 07:36-0400 SaO2% (BldA) [Mass fraction] 97 % Steve Whitley MD Work Phone: [facility] 07-05-2023 07:36-0400 Systolic blood pressure 147 mm[Hg] Steve Whitley MD Work Phone: [facility] 07-03-2023 11:31-0400 Body height 177.8 cm Steve Whitley MD Work Phone: [facility] 04-15-2023 07:46-0400 Body temperature 97.2 [degF] Richie Acosta MD Work Phone: [facility] 04-15-2023 07:46-0400 Diastolic blood pressure 88 mm[Hg] Richie Acosta MD Work Phone: [facility] 04-15-2023 07:46-0400 Heart rate 82 /min Richie Acosta MD Work Phone: [facility] 04-15-2023 07:46-0400 Respiratory rate 18 /min Richie Acosta MD Work Phone: [facility] 04-15-2023 07:46-0400 SaO2% (BldA) [Mass fraction] 100 % Richie Acosta MD Work Phone: [facility] 04-15-2023 07:46-0400 Systolic blood pressure 142 mm[Hg] Richie Acosta MD Work Phone: [facility] 04-11-2023 08:39-0400 Body height 177.8 cm Richie Acosta MD Work Phone: [facility] 04-10-2023 08:28-0400 Body mass index (BMI) [Ratio] 22.96 kg/m2 Richie Acosta MD Work Phone: [facility] 04-10-2023 08:28-0400 Body weight 72.58 kg Richie Acosta MD Work Phone: [facility] 04-07-2023 12:14-0400 Body temperature 98.2 [degF] José Luis Bermudez MD Work Phone: [facility] 04-07-2023 12:14-0400 Diastolic blood pressure 83 mm[Hg] José Luis Bermudez MD Work Phone: [facility] 04-07-2023 12:14-0400 Heart rate 100 /min José Luis Bermudez MD Work Phone: [facility] 04-07-2023 12:14-0400 Respiratory rate 18 /min José Luis Bermudez MD Work Phone: [facility] 04-07-2023 12:14-0400 SaO2% (BldA) [Mass fraction] 97 % José Luis Bermudez MD Work Phone: [facility] 04-07-2023 12:14-0400 Systolic blood pressure 127 mm[Hg] José Luis Bermudez MD Work Phone: [email or web address] 04-04-2023 14:36-0400 Body height 177.8 cm José Luis Bermudez MD Work Phone: [facility] 04-02-2023 15:52-0400 Body mass index (BMI) [Ratio] 22.96 kg/m2 José Luis Bermudez MD Work Phone: [facility] 04-02-2023 15:52-0400 Body weight 72.58 kg José Luis Bermudez MD Work Phone: [facility] 02-14-2023 07:42-0400 Body temperature 97.3 [degF] Rubén Nesheim DO Work Phone: [facility] 02-14-2023 07:42-0400 Diastolic blood pressure 75 mm[Hg] Rubén Nesheim DO Work Phone: [facility] 02-14-2023 07:42-0400 Heart rate 91 /min Rubén Nesheim DO Work Phone: [facility] 02-14-2023 07:42-0400 Respiratory rate 17 /min Rubén Nesheim DO Work Phone: [facility] 02-14-2023 07:42-0400 SaO2% (BldA) [Mass fraction] 99 % Rubén Nesheim DO Work Phone: [facility] 02-14-2023 07:42-0400 Systolic blood pressure 123 mm[Hg] Rubén Nesheim DO Work Phone: [facility] 02-13-2023 05:53-0400 Body mass index (BMI) [Ratio] 26.14 kg/m2 Rubén Nesheim DO Work Phone: [facility] 02-13-2023 05:53-0400 Body weight 82.64 kg Rubén Nesheim DO Work Phone: [facility] 02-11-2023 11:27-0400 Body height 177.8 cm Rubén Nesheim DO Work Phone: [facility] 01-28-2023 10:14-0400 Body height 177.8 cm Beryl Friedt PA-C Work Phone: [employer] [email or web address] 01-28-2023 10:14-0400 Body mass index (BMI) [Ratio] 25.4 kg/m2 Beryl Friedt PA-C Work Phone: [employer] [email or web address] 01-28-2023 10:14-0400 Body temperature 98.2 [degF] Beryl Friedt PA-C Work Phone: [employer] [facility] 01-28-2023 10:140400 Body weight 80.29 kg Beryl Friedt PA-C Work Phone: [employer] [facility] 01-28-2023 10:14-0400 Diastolic blood pressure 64 mm[Hg] Beryl Friedt PA-C Work Phone: [employer] [facility] 01-28-2023 10:14-0400 Heart rate 86 /min Beryl Friedt PA-C Work Phone: [employer] [facility] 01-28-2023 10:14-0400 Systolic blood pressure 130 mm[Hg] Beryl Friedt PA-C Work Phone: [employer] [email or web address] 01-09-2023 14:06-0400 Diastolic blood pressure 77 mm[Hg] Júnior Lo MD Work Phone: [facility] 01-09-2023 14:06-0400 Heart rate 79 /min Júnior Lo MD Work Phone: [facility] 01-09-2023 14:06-0400 Respiratory rate 17 /min Júnior Lo MD Work Phone: [facility] 01-09-2023 14:06-0400 SaO2% (BldA) [Mass fraction] 100 % Júnior Lo MD Work Phone: [employer] [email or web address] 01-09-2023 14:06-0400 Systolic blood pressure 126 mm[Hg] Júnior Lo MD Work Phone: [facility] 01-09-2023 11:34-0400 Body height 177.8 cm Júnior Lo MD Work Phone: [facility] 01-09-2023 11:34-0400 Body mass index (BMI) [Ratio] 26.54 kg/m2 Júnior Lo MD Work Phone: [facility] 01-09-2023 11:34-0400 Body temperature 98.01 [degF] Júnior Lo MD Work Phone: [facility] 01-09-2023 11:34-0400 Body weight 83.92 kg Júnior Lo MD Work Phone: [facility] 01-05-2023 11:15-0400 Body temperature 97.3 [degF] Ruperto Fang MD Work Phone: [facility] 01-05-2023 11:15-0400 Heart rate 92 /min Ruperto Fang MD Work Phone: [facility] 01-05-2023 11:15-0400 Respiratory rate 15 /min Ruperto Fang MD Work Phone: [facility] 01-05-2023 11:15-0400 SaO2% (BldA) [Mass fraction] 99 % Ruperto Fang MD Work Phone: [facility] 01-05-2023 11:00-0400 Diastolic blood pressure 74 mm[Hg] Ruperto Fang MD Work Phone: [facility] 01-05-2023 11:00-0400 Systolic blood pressure 145 mm[Hg] Ruperto Fang MD Work Phone: [facility] 01-05-2023 07:55-0400 Body height 177.8 cm Ruperto Fang MD Work Phone: [facility] 01-05-2023 07:55-0400 Body mass index (BMI) [Ratio] 26.26 kg/m2 Ruperto Fang MD Work Phone: [facility] 01-05-2023 07:55-0400 Body weight 83.01 kg Ruperto Fang MD Work Phone: [facility] 12-25-2022 07:39-0500 Body temperature 97.59 [degF] Rubén Nesheim DO Work Phone: [facility] 12-25-2022 07:39-0500 Diastolic blood pressure 66 mm[Hg] Rubén Nesheim DO Work Phone: [facility] 12-25-2022 07:39-0500 Heart rate 92 /min Rubén Nesheim DO Work Phone: [facility] 12-25-2022 07:39-0500 Respiratory rate 16 /min Rubén Nesheim DO Work Phone: [facility] 12-25-2022 07:39-0500 SaO2% (BldA) [Mass fraction] 96 % Rubén Nesheim DO Work Phone: [facility] 12-25-2022 07:39-0500 Systolic blood pressure 104 mm[Hg] Rubén Nesheim DO Work Phone: [facility] 12-23-2022 07:04-0500 Body height 177.8 cm Rubén Nesheim DO Work Phone: [facility] 12-23-2022 01:13-0500 Body mass index (BMI) [Ratio] 25.46 kg/m2 Rubén Nesheim DO Work Phone: [facility] 12-23-2022 01:13-0500 Body weight 80.5 kg Rubén Nesheim DO Work Phone: [facility] 11-07-2022 11:38-0500 Body height 177.8 cm Ruperto Fang MD Work Phone: [facility] 11-07-2022 11:38-0500 Body mass index (BMI) [Ratio] 26.4 kg/m2 Ruperto Fang MD Work Phone: [facility] 11-07-2022 11:38-0500 Body temperature 96.69 [degF] Ruperto Fang MD Work Phone: [facility] 11-07-2022 11:38-0500 Body weight 83.46 kg Ruperto Fang MD Work Phone: [facility] 11-07-2022 11:38-0500 Diastolic blood pressure 105 mm[Hg] Ruperto Fang MD Work Phone: [facility] 11-07-2022 11:38-0500 Heart rate 103 /min Ruperto Fang MD Work Phone: [facility] 11-07-2022 11:38-0500 Systolic blood pressure 163 mm[Hg] Ruperto Fang MD Work Phone: [facility] 06-25-2022 15:12-0400 Body height 177.8 cm Munira Kalka PA-C Work Phone: [facility] 06-25-2022 15:12-0400 Body weight 74.39 kg Munira Kalka PA-C Work Phone: [facility] 06-25-2022 15:12-0400 Diastolic blood pressure 88 mm[Hg] Munira Kalka PA-C Work Phone: [facility] 06-25-2022 15:12-0400 Heart rate 102 /min Munira Kalka PA-C Work Phone: [facility] 06-25-2022 15:12-0400 Systolic blood pressure 142 mm[Hg] Munira Kalka PA-C Work Phone: [facility] 06-06-2022 08:02-0400 Body temperature 97.11 [degF] Daniel Gombash DO Work Phone: [facility] 06-06-2022 08:02-0400 Diastolic blood pressure 81 mm[Hg] Daniel Gombash DO Work Phone: [facility] 06-06-2022 08:02-0400 Heart rate 96 /min Daniel Gombash DO Work Phone: [facility] 06-06-2022 08:02-0400 Respiratory rate 18 /min Daniel [...] 25.4 kg/m2 Hany Ybarra MD Work Phone: [facility] 05-15-2022 17:05-0400 Body temperature 98.49 [degF] Hany Ybarra MD Work Phone: [facility] 05-15-2022 17:05-0400 Body weight 80.29 kg Hany Ybarra MD Work Phone: [facility] 06-25-2020 00:27-0400 BP Diastolic 96 mm[Hg] [facility] [place] 06-25-2020 00:27-0400 BP Systolic 153 mm[Hg] [facility] [place] 06-25-2020 00:27-0400 Pulse (Heart Rate) 97 /min [facility] [place] 06-25-2020 00:27-0400 Pulse Oximetry 95 % [facility] [place] 06-25-2020 00:27-0400 Respiratory Rate 18 /min [facility] [place] 06-24-2020 22:04-0400 Body Temperature 97.3 [degF] [facility] [place] 06-24-2020 22:01-0400 BMI (Body Mass Index) 29.89 kg/m2 [facility] [place] 06-24-2020 22:01-0400 Body weight 94.[address] [facility] [place] 06-24-2020 22:01-0400 Height 177.[address] [facility] [place] Encounters Encounter Date Encounter Type Care Provider Facility Start: 10-03-2024 End: 10-08-2024 [facility] Start: 10-03-2024 End: 10-08-2024 Patient encounter procedure Savanna [facility] Clinical Communication Start: 07-22-2024 End: 08-01-2024 Evaluation and management of inpatient [facility] Start: 07-10-2024 End: 07-21-2024 Evaluation and management of inpatient QUYNH MCKEON [facility] Start: 07-06-2024 End: 07-06-2024 Telephone encounter Verónica Pierce PA-C Work Phone: [facility] [place] Comment on above: Care Coordination Start: 07-04-2024 End: 07-04-2024 Subsequent hospital visit by physician [facility] Exam Room [address] [facility] Comment on above: Arrived Start: 07-04-2024 End: 07-04-2024 Emergency department patient visit ASHLEY BELL [facility] Start: 07-04-2024 End: 07-10-2024 Evaluation and management of inpatient Ashley Bell MD Work Phone: [facility] Trauma Neuro Progressive Care Unit PCU 3W Comment on above: Metabolic acidosis, increased anion gap (Primary Dx); Ketosis (HCC); Alcohol use; Hypokalemia; Hypomagnesemia Start: 06-06-2024 ambulatory Jani Alvarezsaros Facility :[facility] Start: 05-30-2024 ambulatory [facility] Facility :[facility] Start: 05-27-2024 ambulatory Kevin SALES Facility:[facility] Start: 05-23-2024 End: 08-21-2024 Refill Carmen Jeronimo MD Work Phone: [facility] Medical Surgical Unit MSU 4S Start: 05-21-2024 [facility] Start: 05-21-2024 End: 05-26-2024 Evaluation and management of inpatient Ruddy Jopperi Facility:[facility] Start: 05-02-2024 End: 05-03-2024 Emergency department patient visit Jani Quezada Facility:[facility] Start: 04-22-2024 End: 04-30-2024 Evaluation and management of inpatient Kassandra Adkins MD Work Phone: [facility] Medical Surgical Unit MSU 4S Comment on above: Alcohol use disorder (Primary Dx) Start: 04-08-2024 End: 04-09-2024 Emergency department patient visit YUE DUQUE [facility] Start: 04-05-2024 ambulatory Jani Quezada Facility :[facility] Start: 04-05-2024 End: 04-08-2024 Evaluation and management of inpatient Jani Alvarezsamarti Facility:[facility] Start: 04-04-2024 End: 04-04-2024 Subsequent hospital visit by physician [facility] Exam Room [address] [facility] Comment on above: Arrived Start: 04-04-2024 End: 04-04-2024 Emergency department patient visit Júnior Lo MD Work Phone: [facility] ED Comment on above: Syncope, unspecified syncope type (Primary Dx); Elevated lactic acid level Start: 03-08-2024 End: 03-09-2024 Evaluation and management of inpatient Nir Driscoll DO Work Phone: [facility] ED Comment on above: Hyponatremia (Primar y Dx); Alcoholic intoxication without complication (CMS/HCC) (HCC); Alcohol withdrawal syndrome without complication (HCC); High anion gap metabolic acidosis Start: 02-26-2024 ambulatory José Luis Alarcon RN [facility] Start: 02-26-2024 Patient encounter procedure José Luis Alarcon RN [facility] Start: 01-15-2024 End: 01-26-2024 Evaluation and management of inpatient Daniel Ewing DO Work Phone: [facility] Observation Unit 5E Comment on above: Alcohol withdrawal s yndrome without complication (HCC) (Primary Dx); COVID-19; Leg edema; Other pancytopenia (CMS/HCC) (HCC); Alcoholic cirrhosis of liver without ascites (CMS/HCC) (HCC); Mild recurrent major depression (HCC) Start: 12-25-2023 End: 12-26-2023 ambulatory MUNIRA STALEY Facility:[facility] [facility] Start: 12-24-2023 End: 12-24-2023 ambulatory JANI QUEZADA Facility:[facility] Start: 12-17-2023 End: 12-17-2023 Subsequent hospital visit by physician Carmen Jeronimo MD Work Phone: [facility] Addiction IOP Comment on above: Arrived Start: 12-15-2023 End: 12-15-2023 Subsequent hospital visit by physician Carmen Jeronimo MD Work Phone: [facility] Addiction IOP Comment on above: Arrived Start: 12-07-2023 End: 12-07-2023 Subsequent hospital visit by physician Carmen Jeronimo MD Work Phone: [facility] Addiction IOP Comment on above: Severe alcohol use d isorder (HCC) Start: 10-20-2023 End: 10-27-2023 Evaluation and management of inpatient Khurram Bob MD Work Phone: [facility] Medical Surgical Unit MSU 4S Comment on above: 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 (Primary Dx); Alcohol use disorder, severe, dependence (HCC); Nausea and vomiting, unspecified vomiting type; Chronic pain syndrome Start: 06-30-2023 End: 07-05-2023 Evaluation and management of inpatient Steve Whitley MD Work Phone: [facility] 2E TELEMETRY Comment on above: Hyponatremia (Primar y Dx) Start: 05-26-2023 ambulatory Corinne Romeo RN [facility] Communication Start: 05-26-2023 Patient encounter procedure Corinne Romeo RN [facility] Clinical Communication Start: 04-09-2023 End: 04-15-2023 Evaluation and management of inpatient Richie Acosta MD Work Phone: [facility] 2E TELEMETRY Comment on above: Hyponatremia (Primar y Dx); DENNYS (acute kidney injury) (CMS/HCC) (HCC) Start: 04-05-2023 Telephone encounter Anna Abbott CNP Work Phone: [facility] Medical [facility] Gastroenterology Comment on above: Hospital Follow-up Start: 04-02-2023 End: 04-02-2023 Subsequent hospital visit by physician [facility] Us Exam Room 2 [facility] Comment on above: Arrived Start: 04-02-2023 End: 04-07-2023 Evaluation and management of inpatient José Luis Bermudez MD Work Phone: [facility] 4E DETOX Comment on above: Alcohol withdrawal s yndrome without complication (HCC) (Primary Dx); Alcohol use disorder Start: 02-16-2023 Telephone encounter Casandra Salinas RN [facility] Clinical Communication Comment on above: Hospital Follow-up Start: 02-10-2023 End: 02-14-2023 Evaluation and management of inpatient Rubén Hoang DO Work Phone: [facility] 2E TELEMETRY Comment on above: Hyponatremia (Primar y Dx); Alcohol dependence with unspecified alcohol-induced disorder (HCC); Chronic pain syndrome; Myalgia; Acute kidney injury (CMS/HCC) (HCC) Start: 01-28-2023 End: 01-28-2023 Postop follow up visit related to original px Beryl Holder PA-C Work Phone: [facility] Comment on above: Encounter for postop erative care (Primary Dx); Gallbladder sludge; 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) Start: 01-12-2023 Telephone encounter Ruperto castelan MD Work Phone: [facility] Comment on above: Advice Only Start: 01-09-2023 End: 01-09-2023 Emergency department patient visit Júnior Lo MD Work Phone: [facility] ED Comment on above: Ascites due to alcoh olic cirrhosis (CMS/HCC) (HCC) (Primary Dx) Start: 01-05-2023 End: 01-05-2023 Subsequent hospital visit by physician Ruperto Fang MD Work Phone: [facility] MAIN OR Comment on above: RUQ pain (Primary Dx ); Right upper quadrant pain; Other specified diseases of gallbladder Start: 12-30-2022 Telephone encounter Beryl chandler PA-C Work Phone: [facility] Start: 12-27-2022 Telephone encounter Leah Kimble RN [facility] Clinical Communication Comment on above: Hospital Follow-up Start: 12-22-2022 End: 12-22-2022 Subsequent hospital visit by physician [facility] Ct Exam Room 1 [facility] CT Comment on above: Arrived Canceled (Patient) Start: 12-22-2022 End: 12-25-2022 Evaluation and management of inpatient Rubén Hoang DO Work Phone: [facility] 4S TELEMETRY Comment on above: DENNYS (acute kidney in jury) (CMS/HCC) (HCC) (Primary Dx); Acute kidney injury (CMS/HCC) (HCC) Start: 12-11-2022 Orders Only Beryl Holder PA-C Work Phone: [facility] Comment on above: Preop examination (P rimary Dx) Start: 12-11-2022 Preprocedural examination done Beryl Gallo EDWARDS Work Phone: [facility] Start: 11-20-2022 Telephone encounter [...] 07-11-2022 Telephone encounter [facility]ZC [facility] Comment on above: Results Start: 07-08-2022 Telephone encounter Munira SHAH-C Work Phone: [facility] Comment on above: Results Start: 07-08-2022 End: 07-08-2022 Subsequent hospital visit by physician [facility] W[facility] Mob 2 Work Phone: Radiology Comment on above: History of hepatitis C [Z86.19] Start: 06-25-2022 End: 06-25-2022 Patient encounter procedure Munira Staley PA-C Work Phone: [facility] Comment on above: Abnormal CT scan, st omach (Primary Dx); History of esophageal varices; Diarrhea, unspecified type; History of hepatitis C; Abnormal results of liver function studies Start: 06-04-2022 End: 06-06-2022 Evaluation and management of inpatient Ashlyn Atkinson [facility] Start: 06-03-2022 End: 06-06-2022 Evaluation and management of inpatient Daniel Faulknerjonathanmicheal Work Phone: [facility] 2E TELEMETRY Comment on above: Syncope and collapse (Primary Dx); Hyponatremia; Acute alcoholic intoxication without complication (HCC); Spinal stenosis of lumbar region, unspecified whether neurogenic claudication present Start: 05-15-2022 End: 05-15-2022 Emergency department patient visit Jani Quezada [facility] Start: 05-15-2022 End: 05-15-2022 Emergency department patient visit Hany Ybarra MD Work Phone: [facility] Comment on above: Acute exacerbation o f chronic low back pain (Primary Dx); Non-intractable vomiting with nausea, unspecified vomiting type; Dehydration Start: 06-24-2020 End: 06-25-2020 Emergency department patient visit Jani Quezada [facility] ED Comment on above: Right flank pain (Pr imary Dx); Penile discharge; Malaise and fatigue; Nausea Start: 07-19-2019 End: 07-19-2019 Subsequent hospital visit by physician Daniel London Work Phone: [facility] Comment on above: Arrived Start: 07-16-2019 End: 07-16-2019 Subsequent hospital visit by physician Daniel London Work Phone: [facility] Laboratory Start: 06-18-2017 End: 06-20-2017 Evaluation and management of inpatient [facility] Start: 06-10-2017 End: 06-10-2017 Ambulatory [facility] Procedures Date Procedure Procedure Detail Performing Clinician Start: 07-11-2024 Lipid 1996 panel - S tomas or Plasma Verónica Pierce PA-C Work Phone: Start: 07-11-2024 Thyrotropin [Units/v olume] in Serum or Plasma Verónica Pierce PA-C Work Phone: Start: 07-10-2024 SARS-CoV-2 (COVID-19 ) Ag [Presence] in Respiratory specimen by Rapid immunoassay Emiliano Church [employer] Work Phone: Start: 07-10-2024 Basic metabolic pane [...] abdominal real ti me w/image documentation Virgilio Alamnza MD Work Phone: Start: 07-05-2024 Iadna-dna/rna gi [...] 04-26-2024 Glucose quantitative blood xcpt reagent strip Cde Koenig MD Work Phone: Start: 04-26-2024 Blood [...] Start: 04-22-2024 Manual Differential panel - Blood aKssandra Adkins MD Work Phone: Start: 04-22-2024 Ecg [...] in Respiratory specimen by Rapid immunoassay Daniel Ewign DO Work Phone: Start: 01-15-2024 Urinalysis complete [...] stick/tabl et rgnt auto w/o microscopy Khurram Bob MD Work Phone: Start: 10-20-2023 Basic [...] metabolic pane l calcium total Ophelia Ramos SPREADING MACHINE OPERATOR - CLOTHESPIN MACHINE OPERATOR Work Phone: Start: 07-04-2023 Basic metabolic pane l calcium total Ophelia Ramos SPREADING MACHINE OPERATOR - CLOTHESPIN MACHINE OPERATOR Work Phone: Start: 07-03-2023 Basic metabolic pane l calcium total Ophelia Ramos [facility] Work Phone: Start: 07-03-2023 Basic metabolic pane l calcium total Ophelia Ramos [facility] Work Phone: Start: 07-03-2023 Basic metabolic pane l calcium total Ophelia Ramos [facility] Work Phone: Start: 07-02-2023 End: 07-03-2023 Basic metabolic panel calcium total Ophelia Ramos [facility] Work Phone: Start: 07-02-2023 Basic metabolic pane l calcium total Kacie Cabral Esterle Work Phone: Start: 07-02-2023 Comprehensive metabo lic panel Ophelia Ramos [facility] Work Phone: Start: 07-01-2023 Basic metabolic pane l calcium total Ophelia Ramos [facility] Work Phone: Start: 07-01-2023 Basic metabolic pane l calcium total Ophelia aRmos [facility] Work Phone: Start: 07-01-2023 Basic metabolic pane l calcium total Ophelia Ramos [facility] Work Phone: Start: 07-01-2023 Comprehensive metabo lic [...] Assay of osmolality urine Ophelia Sanchez [employer] SPREADING MACHINE OPERATOR - CLOTHESPIN MACHINE OPERATOR Work Phone: Start: 04-10-2023 Urnls dip stick/tabl et rgnt auto w/o microscopy Ophelia Sanchez [employer]iel[employer] SPREADING MACHINE OPERATOR - CLOTHESPIN MACHINE OPERATOR Work Phone: Start: 04-10-2023 Comprehensive metabo lic [...] hiv-1 ag w/hiv-1 & hiv-2 antbdy single Indre Delacruzva DO Work Phone: Start: 04-04-2023 Radiologic [...] metabolic pane l calcium total Ophelia Ramos SPREADING MACHINE OPERATOR - CLOTHESPIN MACHINE OPERATOR Work Phone: Start: 02-13-2023 Sodium serum plasma or whole blood Ophelia Ramos SPREADING MACHINE OPERATOR - CLOTHESPIN MACHINE OPERATOR Work Phone: Start: 02-13-2023 Sodium serum plasma or whole blood Ophelia Ramos SPREADING MACHINE OPERATOR - CLOTHESPIN MACHINE OPERATOR Work Phone: Start: 02-12-2023 Basic metabolic pane l calcium total Kacie Benz DO Work Phone: Start: 02-12-2023 Sodium serum plasma or whole blood Ophelia Ramos SPREADING MACHINE OPERATOR - CLOTHESPIN MACHINE OPERATOR Work Phone: Start: 02-12-2023 Sodium serum plasma or whole blood Ophelia Ramos SPREADING MACHINE OPERATOR - CLOTHESPIN MACHINE OPERATOR Work Phone: Start: 02-12-2023 Us abdominal real ti me w/image documentation Ana Callaway MD Work Phone: Start: 02-12-2023 Comprehensive metabo lic panel Kacie Benz DO Work Phone: Start: 02-11-2023 Sodium serum plasma or whole blood Ophelia Ramos SPREADING MACHINE OPERATOR [employer] Work Phone: Start: 02-11-2023 End: 02-11-2023 Sodium serum plasma or whole blood Ophelia Ramos SPREADING MACHINE OPERATOR [employer] Work Phone: Start: 02-11-2023 Assay of osmolality urine Ophelia Ramos SPREADING MACHINE OPERATOR [employer] Work Phone: Start: 02-11-2023 Urnls dip stick/tabl et rgnt auto w/o microscopy Ophelia Ramos SPREADING MACHINE OPERATOR [employer] Work Phone: Start: 02-11-2023 Iadna-dna/rna gi pth [...] Phone: Start: 02-10-2023 Comprehensive metabo lic panel uRbén Hoang DO Work Phone: Start: 01-05-2023 Glucose [...] Phone: Start: 12-23-2022 Chloride urine Ophelia Okeefe SPREADING MACHINE OPERATOR - CLOTHESPIN MACHINE OPERATOR Work Phone: Start: 12-23-2022 Urnls dip stick/tabl et rgnt auto w/o microscopy Ophelia Maldonado SPREADING MACHINE OPERATOR - CLOTHESPIN MACHINE OPERATOR Work Phone: Start: 12-23-2022 Glucose quantitative blood [...] ncd id imfluor stain ea Anna Stewart SPREADING MACHINE OPERATOR - CLOTHESPIN MACHINE OPERATOR Work Phone: Start: 06-05-2022 Sodium serum plasma [...] End: 06-04-2022 Cyanocobalamin vitamin b-12 Jonny Cerdal SPREADING MACHINE OPERATOR - CLOTHESPIN MACHINE OPERATOR Work Phone: Start: 06-04-2022 Hepatic function panel Jonny Raffel SPREADING MACHINE OPERATOR - CLOTHESPIN MACHINE OPERATOR Work Phone: Start: 06-04-2022 Manual Differential panel - Blood Unknown Provider Result Start: 06-04-2022 ADD ON LAB TEST Maldonado Stewart SPREADING MACHINE OPERATOR - CLOTHESPIN MACHINE OPERATOR Work Phone: Start: 06-04-2022 Hemoglobin glycosylated a1c [...] ribs unilatera l 2 views Daniel Lawson [employer] Work Phone: Start: 07-16-2019 Assay of urea nitrog en quantitative Daniel London Work Phone: Start: 07-16-2019 Creatinine blood Daniel Lawson Drummond Work Phone: Plan of Treatment Date Care Activity Detail Author Start: 08-26-2028 DTaP/Tdap/Td vaccine (2 - Td or Tdap) DTaP/Tdap/Td vaccine (2 - Td or Tdap) [facility] Start: 08-26-2028 DTaP/Tdap/Td Vaccines (2 - Td or Tdap) DTaP/Tdap/Td Vaccines (2 - Td or Tdap) [facility] Start: 07-29-2025 Diabetes: Estimated Glomerular Filtration Rate for Kidney Health Diabetes: Estimated Glomerular Filtration Rate for Kidney Health [facility] Start: 07-26-2025 Diabetes: Estimated Glomerular Filtration Rate for Kidney Health Diabetes: Estimated Glomerular Filtration Rate for Kidney Health [facility] Start: 07-22-2025 Hemoglobin A1c measurement Diabetes: Hemoglobin A1C [facility] Start: 07-16-2025 Diabetes: Estimated Glomerular Filtration Rate for Kidney Health Diabetes: Estimated Glomerular Filtration Rate for Kidney Health [facility] Start: 07-12-2025 Diabetes: Estimated Glomerular Filtration Rate for Kidney Health Diabetes: Estimated Glomerular Filtration Rate for Kidney Health [facility] Start: 07-11-2025 Lipid panel Lipid Panel [facility] Start: 07-11-2025 Thyroid stimulating hormone measurement TSH Level [facility] Start: 07-10-2025 Diabetes: Estimated Glomerular Filtration Rate for Kidney Health Diabetes: Estimated Glomerular Filtration Rate for Kidney Health [facility] Start: 07-07-2025 Diabetes: Estimated Glomerular Filtration Rate for Kidney Health Diabetes: Estimated Glomerular Filtration Rate for Kidney Health [facility] Start: 07-06-2025 Diabetes: Estimated Glomerular Filtration Rate for Kidney Health Diabetes: Estimated Glomerular Filtration Rate for Kidney Health [facility] Start: 07-05-2025 Diabetes: Estimated Glomerular Filtration Rate for Kidney Health Diabetes: Estimated Glomerular Filtration Rate for Kidney Health [facility] Start: 04-27-2025 Diabetes: Estimated Glomerular Filtration Rate for Kidney Health Diabetes: Estimated Glomerular Filtration Rate for Kidney Health [facility] Start: 04-23-2025 Hemoglobin A1c measurement Diabetes: Hemoglobin A1C [facility] Start: 04-23-2025 Thyroid stimulating hormone measurement TSH Level [facility] Start: 04-04-2025 Diabetes: Estimated Glomerular Filtration Rate for Kidney Health Diabetes: Estimated Glomerular Filtration Rate for Kidney Health [facility] Start: 03-08-2025 Diabetes: Estimated Glomerular Filtration Rate for Kidney Health Diabetes: Estimated Glomerular Filtration Rate for Kidney Health [facility] Start: 01-25-2025 Diabetes: Estimated Glomerular Filtration Rate for Kidney Health Diabetes: Estimated Glomerular Filtration Rate for Kidney Health [facility] Start: 01-21-2025 Depression Monitoring Depression Monitoring [facility] Start: 01-18-2025 Thyroid stimulating hormone measurement TSH Level [facility] Start: 01-07-2025 Depression Monitoring Depression Monitoring [facility] Start: 01-02-2025 Depression Monitoring Depression Monitoring [facility] Start: 10-26-2024 Depression Monitoring Depression Monitoring [facility] Start: 09-13-2024 End: 09-13-2024 Patient encounter procedure 09/13/2024 3:00 PM EST Office Visit [facility] [place] [address] [phone] Ana Armas PA-C [address] [phone] [facility] [place] Start: 07-23-2024 Depression Monitoring Depression Monitoring [facility] Start: 07-23-2024 Depresssion Monitoring Depresssion Monitoring [facility] Start: 06-19-2024 COVID-19 Vaccine ( season) COVID-19 Vaccine () [facility] Start: 06-19-2024 COVID-19 Vaccine () COVID-19 Vaccine () [facility] Start: 06-19-2024 Influenza vaccination [facility] Start: 06-06-2024 Depresssion Monitoring Depresssion Monitoring [facility] Start: 04-10-2024 Thyroid stimulating hormone measurement TSH Level [facility] Start: 04-02-2024 Hemoglobin A1c measurement Diabetes: Hemoglobin A1C [facility] Start: 04-02-2024 Thyroid stimulating hormone measurement TSH Level [facility] Start: 02-12-2024 Thyroid stimulating hormone measurement TSH Level [facility] Start: 01-21-2024 End: 01-21-2024 Patient encounter procedure 01/21/2024 5:30 PM EDT Appointment [facility] [address] [place] [address] Carmen Jeronimo MD [address] [place] [phone] [employer] [facility] Start: 01-19-2024 End: 01-19-2024 Patient encounter procedure 01/19/2024 5:30 PM EDT Appointment [facility] [address] [place] [address] Carmen Jeronimo MD [address] [place] [phone] [employer] [facility] Start: 01-18-2024 End: 01-18-2024 Patient encounter procedure 01/18/2024 5:30 PM EDT Appointment [facility] [address] [place] [address] Carmen Jeronimo MD [address] [place] [phone] [address] [facility] Start: 01-14-2024 End: 01-14-2024 Patient encounter procedure 01/14/2024 5:30 PM EDT Appointment [facility] [address] [place] [phone] Carmen eJronimo MD [address] [place] [address] [address] [place] [phone] [employer] [facility] Start: 01-12-2024 End: 01-12-2024 Patient encounter procedure 01/12/2024 5:30 PM EDT Appointment [facility] [address] [place] [address] Carmen Jeronimo MD [address] [place] [phone] [employer] [facility] Start: 01-11-2024 End: 01-11-2024 Patient encounter procedure 01/11/2024 5:30 PM EDT Appointment [facility] [address] [place] [phone] Carmen Jeronimo MD [address] [place] [phone] [employer] [facility] Start: 01-07-2024 End: 01-07-2024 Patient encounter procedure 01/07/2024 5:30 PM EDT Appointment [facility] [address] [place] [phone] Carmen Jeronimo MD [address] [place] [phone] [address] [facility] [address] Start: 01-05-2024 End: 01-05-2024 Patient encounter procedure 01/05/2024 5:30 PM EDT Appointment [facility] [address] [place] [address] Carmen Jeronimo MD [address] [place] [phone] [employer] [facility] Start: 01-04-2024 End: 01-04-2024 Patient encounter procedure 01/04/2024 5:30 PM EDT Appointment [facility] [address] [place] [address] Carmen Jeronimo MD [address] [place] [phone] [employer] [facility] Start: 12-31-2023 End: 12-31-2023 Patient encounter procedure 12/31/2023 5:30 PM EDT Appointment [facility] [address] [facility] [place] [address] Carmen Jeronimo MD [address] [place] [phone] [employer] [facility] Start: 12-29-2023 End: 12-29-2023 Patient encounter procedure 12/29/2023 5:30 PM EDT Appointment [facility] [address] [place] [address], [place] [address] Carmen Jeronimo MD [address] [place] [phone] [employer] [facility] Start: 12-28-2023 End: 12-28-2023 Patient encounter procedure 12/28/2023 5:30 PM EDT Appointment [facility] [address] [place] [address] Carmen Jeronimo MD [address] [place] [phone] [employer] [facility] Start: 12-24-2023 End: 12-24-2023 Patient encounter procedure 12/24/2023 5:30 PM EST Appointment [facility] [address] [place] [address] Carmen Jeronimo MD [address] [place] [address] [address] [place] [phone] [address] [facility] [address] Start: 12-22-2023 End: 12-22-2023 Patient encounter procedure 12/22/2023 5:30 PM EST Appointment [facility] [address] [place] [address] Carmen Jeronimo MD [address] [place] [address] [address] [place] [address] [address] [facility] Start: 12-21-2023 End: 12-21-2023 Patient encounter procedure 12/21/2023 5:30 PM EST Appointment [facility] [address] [place] [address] Carmen Jeronimo MD [address] [place] [address] [address] [place] [address] [address] [facility] Start: 12-17-2023 End: 12-17-2023 Patient encounter procedure [facility] Start: 12-15-2023 End: 12-15-2023 Patient encounter procedure [facility] Start: 10-19-2023 Medicare Advantage Annual Wellness Visit Medicare Advantage Annual Wellness Visit [facility] Start: 10-03-2023 Depresssion Monitoring Depresssion Monitoring [facility] Start: 07-03-2023 Hemoglobin A1c measurement Diabetes: Hemoglobin A1C [facility] Start: 06-19-2023 COVID-19 Vaccine ( season) COVID-19 Vaccine () [facility] Start: 06-19-2023 Influenza vaccination [facility] Start: 06-06-2023 Screening for malignant neoplasm of colon [facility] Start: 06-04-2023 Hemoglobin A1c measurement A1C test (Diabetic or Prediabetic) [facility] Start: 06-04-2023 Thyroid stimulating hormone measurement TSH Level [email or web address] Start: 04-27-2023 End: 04-15-2024 Basic metabolic 1998 panel - Serum or Plasma Basic metabolic panel Lab Routine Hyponatremia Expected: 04/27/2023 (Approximate), Expires: 04/15/2024 [employer] Work Phone: Comment on above: Expected: 04/27/2023 (Approximate), Expi res: 04/15/2024 Start: 03-31-2023 Hemoglobin A1c measurement Diabetes: Hemoglobin A1C [email or web address] Start: 02-15-2023 End: 02-15-2024 Basic metabolic 1998 panel - Serum or Plasma Basic metabolic panel Lab Routine Hyponatremia Acute kidney injury (CMS/HCC) (HCC) Expected: 02/15/2023 (Approximate), Expires: 02/15/2024 [employer] Work Phone: Comment on above: Expected: 02/15/2023 (Approximate), Expi res: 02/15/2024 Start: 01-21-2023 End: 01-21-2023 Patient encounter procedure 01/21/2023 Office Visit General Surgery [facility] Start: 01-05-2023 End: 01-05-2023 Admission to same day surgery center 01/05/2023 Surgery Procedural Ruperto Fang MD [address] [place] [address] [address] [place] [address] LAPAROSCOPIC CHOLECYSTECTOMY, POSSIBLE OPEN [36961 (CPT )] [facility] Comment on above: LAPAROSCOPIC CHOLECYSTECTOMY, POSSIBLE O PEN [20723 (CPT )] Start: 01-05-2023 End: 01-05-2023 Anesthesia consultation 01/05/2023 Anesthesia Event Procedural Erika Lazar, SPREADING MACHINE OPERATOR - CLOTHESPIN MACHINE OPERATOR [address] [place] [address] [facility] Start: 01-05-2023 End: 01-05-2023 Laparoscopy surg cholecystectomy LAPAROSCOPIC CHOLECYSTECTOMY Right upper quadrant pain Other specified diseases of gallbladder 01/05/2023 9:30 AM EDT [facility] Operating [facility] Start: 01-05-2023 Subsequent hospital visit by physician 01/05/2023 Hospital Encounter Procedural Ruperto Fang MD [address] [place] [address] [address] [place] [address] [facility] Start: 12-29-2022 End: 12-29-2022 Admission to establishment [facility] Pre-Admit Testing Start: 12-11-2022 End: 12-11-2023 Hepatic function 2000 panel - Serum or Plasma Hepatic function panel Lab Routine Preop examination Expected: 12/11/2022 (Approximate), Expires: 12/11/2023 [facility] Work Phone: Comment on above: Expected: 12/11/2022 (Approximate), Expi res: 12/11/2023 Start: 09-04-2022 Hemoglobin A1c measurement Diabetes: Hemoglobin A1C [facility] Start: 06-25-2022 End: 08-25-2022 CBC W Auto Differential panel - Blood CBC + DIFF Lab Routine Abnormal CT scan, stomach Expected: 06/25/2022, Expires: 08/25/2022 [facility] Work Phone: Comment on above: Expected: 06/25/2022, Expires: 2 Start: 06-25-2022 End: 08-25-2022 Comprehensive metabolic 2000 panel - Serum or Plasma COMP METABOLIC PANEL Lab Routine Abnormal CT scan, stomach Expected: 06/25/2022, Expires: 08/25/2022 [facility] Work Phone: Comment on above: Expected: 06/25/2022, Expires: 2 Start: 06-25-2022 End: 08-25-2022 HEPATITIS A ANTIBODY, IGG HEPATITIS A ANTIBODY, IGG Lab Routine History of hepatitis C Expected: 06/25/2022, Expires: 08/25/2022 [facility] Work Phone: Comment on above: Expected: 06/25/2022, Expires: 2 Start: 06-25-2022 End: 08-25-2022 Hepatitis B virus core Ab [Presence] in Serum HEP B CORE AB TOTAL Lab Routine History of hepatitis C Expected: 06/25/2022, Expires: 08/25/2022 [facility] Work Phone: Comment on above: Expected: 06/25/2022, Expires: 2 Start: 06-25-2022 End: 08-25-2022 Hepatitis B virus surface Ab [Presence] in Serum by Immunoassay HEP B SURF AG SCRN Lab Routine History of hepatitis C Expected: 06/25/2022, Expires: 08/25/2022 [facility] Work Phone: Comment on above: Expected: 06/25/2022, Expires: 2 Start: 06-25-2022 End: 08-25-2022 Hepatitis B virus surface Ab [Units/volume] in Serum HEP B SURF AB QUANT Lab Routine History of hepatitis C Expected: 06/25/2022, Expires: 08/25/2022 [facility] Work Phone: Comment on above: Expected: 06/25/2022, Expires: 2 Start: 06-25-2022 End: 08-25-2022 Hepatitis C virus RNA [Units/volume] (viral load) in Serum or Plasma by SHANE with probe detection HCV QUANT RNA BY PCR Lab Routine History of hepatitis C Expected: 06/25/2022, Expires: 08/25/2022 [facility] Work Phone: Comment on above: Expected: 06/25/2022, Expires: 2 Start: 06-25-2022 End: 08-25-2022 Lipase [Enzymatic activity/volume] in Serum or Plasma LIPASE BLD Lab Routine Abnormal CT scan, stomach Expected: 06/25/2022, Expires: 08/25/2022 [facility] Work Phone: Comment on above: Expected: 06/25/2022, Expires: 2 Start: 06-25-2022 End: 08-25-2022 PT panel - Platelet poor plasma by Coagulation assay PROTHROMBIN TIME/PT Lab Routine History of hepatitis C Abnormal results of liver function studies Expected: 06/25/2022, Expires: 08/25/2022 [facility] Work Phone: Comment on above: Expected: 06/25/2022, Expires: 2 Start: 06-19-2022 Influenza vaccination [facility] Start: 07-16-2020 Creatinine measurement Creatinine monitoring [place], [place] Start: 07-16-2020 Creatinine monitoring Creatinine monitoring [place], [place] Start: 06-19-2020 Influenza vaccination Flu vaccine (#1) [place] Start: 2020 HEPATITIS B (1 of 3 - Risk 3-dose series) HEPATITIS B (1 of 3 - Risk 3-dose series) [facility] Start: 2020 Hepatitis B Vaccines (1 of 3 - Risk 3-dose series) Hepatitis B Vaccines (1 of 3 - Risk 3-dose series) [facility] Start: 2020 RSV Immunization aged 60 or older (1 - 1-dose 60+ series) RSV Immunization aged 60 or older (1 - 1-dose 60+ series) [facility] Start: 2020 RSV Immunization for Adults (1 - Risk 60-74 years 1-dose series) RSV Immunization for Adults (1 - Risk 60-74 years 1-dose series) [facility] Start: 07-19-2019 Hospital Encounter 07/19/2019 Hospital Encounter Radiology Daniel London MD [address] [id number] ALY JAMES Start: 06-19-2019 Influenza vaccination Flu vaccine (#1) [place] Start: 04-10-2019 Annual Wellness Visit (AWV) Annual Wellness Visit (AWV) [place] Start: 08-28-2018 Pneumococcal 0-64 years Vaccine (2 - PPSV23 or PCV20) Pneumococcal 0-64 years Vaccine (2 - PPSV23 or PCV20) [facility] Start: 08-28-2018 Pneumococcal Vaccine: Pediatrics (0 to 5 Years) and At-Risk Patients (6 to 64 Years) (2 - PPSV23 if available, else PCV20) Pneumococcal Vaccine: Pediatrics (0 to 5 Years) and At-Risk Patients (6 to 64 Years) (2 - PPSV23 if available, else PCV20) [facility] Start: 10-23-2017 Pneumococcal Vaccine: 50+ Years (2 of 2 - PPSV23) Pneumococcal Vaccine: 50+ Years (2 of 2 - PPSV23) [facility] Start: 10-23-2017 Pneumococcal Vaccine: Pediatrics (0 to 5 Years) and At-Risk Patients (6 to 64 Years) (2 - PPSV23 if available, else PCV20) Pneumococcal Vaccine: Pediatrics (0 to 5 Years) and At-Risk Patients (6 to 64 Years) (2 - PPSV23 if available, else PCV20) [facility] Start: 10-23-2017 Pneumococcal Vaccine: Pediatrics (0 to 5 Years) and At-Risk Patients (6 to 64 Years) (2 of 2 - PPSV23 or PCV20) Pneumococcal Vaccine: Pediatrics (0 to 5 Years) and At-Risk Patients (6 to 64 Years) (2 of 2 - PPSV23 or PCV20) [facility] Start: 09-06-2016 A1C test (Diabetic or Prediabetic) A1C test (Diabetic or Prediabetic) [place] Start: 09-06-2016 Creatinine monitoring Creatinine monitoring [place] Start: 09-06-2016 HbA1c (Bld) [Mass fraction] A1C test (Diabetic or Prediabetic) [place] Start: 09-06-2016 Hemoglobin A1c measurement A1C test (Diabetic or Prediabetic) [facility] Start: 09-06-2016 Lipid panel [facility] Start: 09-06-2016 Lipid screen Lipid screen [place] Start: 09-06-2016 Potassium monitoring Potassium [place] Start: 02-03-2015 PROSTATE CANCER SCREENING DISCUSSION PROSTATE CANCER SCREENING DISCUSSION [facility] Start: 02-03-2010 Colon cancer screen colonoscopy Colon cancer screen colonoscopy [place] Start: 02-03-2010 Screening for malignant neoplasm of colon Colon cancer screen colonoscopy [place] Start: 02-03-2010 Shingles Vaccine (1 of 2) Shingles Vaccine (1 of 2) [facility] Start: 02-03-2010 SHINGRIX VACCINE (1 of 2) SHINGRIX VACCINE (1 of 2) [facility] Start: 02-03-2010 Zoster Vaccines (1 of 2) Zoster Vaccines (1 of 2) [facility] Start: 02-03-2005 COLOGUARD (FIT-DNA) COLOGUARD (FIT-DNA) [facility] Start: 02-03-2005 Colonoscopy COLONOSCOPY [facility] Start: 02-03-2005 COLORECTAL CANCER SCREENING COLORECTAL CANCER SCREENING [facility] Start: 02-03-[address] COLONOGRAPHY [facility] Start: 02-03-2005 FECAL OCCULT BLOOD FECAL OCCULT BLOOD [facility] Start: 02-03-2005 Screening for malignant neoplasm of colon [facility] Start: 02-03-2005 SIGMOIDOSCOPY SIGMOIDOSCOPY [facility] Start: 2000 Prostate specific antigen measurement Prostate Specific Antigen (PSA) Screening or Monitoring [facility] Start: 02-03-1979 DTaP/Tdap/Td vaccine (1 - Tdap) DTaP/Tdap/Td vaccine (1 - Tdap) [facility] Start: 02-03-1979 Hepatitis A Vaccines (1 of 2 - Risk 2-dose series) Hepatitis A Vaccines (1 of 2 - Risk 2-dose series) [facility] Start: 02-03-1979 Hepatitis B Vaccine (1 of 3 - Risk 3-dose series) Hepatitis B Vaccine (1 of 3 - Risk 3-dose series) [facility] Start: 02-03-1979 Urine microalbumin profile DTAP,TDAP,TD (1 - Tdap) [facility] Start: 02-03-1979 Urine screening for protein Diabetes: Urine Protein Screening [facility] Start: 02-03-1978 ANNUAL PCP TEAM CHRONIC DISEASE VISIT ANNUAL PCP TEAM CHRONIC DISEASE VISIT [facility] Start: 02-03-1978 BP CONTROLLED (<130/80) BP CONTROLLED (<130/80) [facility] in Start: 02-03-1978 Diabetes: Urine Albumin-Creatinine Ratio for Kidney Health Diabetes: Urine Albumin-Creatinine Ratio for Kidney Health [facility] Start: 02-03-1978 Diabetic microalbuminuria test Diabetic microalbuminuria test [facility] Start: 02-03-1978 Diabetic retinal exam [facility]abetic [facility] Start: 02-03-1978 Hepatitis B surface antibody level LDL CHOLESTEROL [facility] Start: 02-03-1978 Hepatitis C screening Hepatitis C screen [facility] Start: 02-03-1978 HIV SCREENING HIV SCREENING [facility] Start: 02-03-1978 SPIROMETRY SPIROMETRY [facility] Start: 02-03-1978 Urine screening for protein Diabetic [facility]albuminuria [facility] Start: 02-03-1975 HIV screen HIV screen [place] Start: 02-03-1975 HIV screening HIV screen [facility] Start: 1972 Adult depression screening assessment DEPRESSION SCREENING [facility] Start: 1972 Depression Screen Depression Screen [facility] Start: 1972 Depresssion Monitoring Depresssion Monitoring [facility] Start: 02-03-1970 [object Object] Diabetic foot exam [facility] Start: 02-03-1970 Diabetic foot examination [facility] Start: 02-03-1970 Diabetic retinal exam Diabetic retinal exam [place] Start: 02-03-1970 Glaucoma screening Diabetes: Retinopathy Screening [facility] Start: 02-03-1970 Hepatitis B screening URINE ALBUMIN:CREATININE RATIO [facility] Start: 02-03-1970 Hepatitis C antibody, confirmatory test DILATED RETINAL EXAM [facility] Start: 02-03-1970 Preventive dental service Diabetes: Dental Exam [facility] Start: 02-03-1966 PNEUMOCOCCAL (1 - PCV) PNEUMOCOCCAL (1 - PCV) [facility] Start: 02-03-1966 Pneumococcal 0-64 years Vaccine (1 - PCV) Pneumococcal 0-64 years Vaccine (1 - PCV) [facility] Start: 02-03-1966 Pneumococcal 0-64 years Vaccine (1 of 1 - PPSV23) Pneumococcal 0-64 years Vaccine (1 of 1 - PPSV23) [place] Start: 02-03-1965 Hemoglobin A1c/Hemoglobin.total in Blood HBA1C [facility] Start: 02-03-1961 HEPATITIS A (1 of 2 - Risk 2-dose series) HEPATITIS A (1 of 2 - Risk 2-dose series) [facility] Start: 02-03-1961 Hepatitis A vaccine (1 of 2 - Risk 2-dose series) Hepatitis A vaccine (1 of 2 - Risk 2-dose series) [facility] Start: 02-03-1961 Hepatitis A Vaccines (1 of 2 - Risk 2-dose series) Hepatitis A Vaccines (1 of 2 - Risk 2-dose series) [facility] Start: 02-03-1961 MMR Vaccines (1 of 1 - Standard series) MMR Vaccines (1 of 1 - Standard series) [facility] Start: 1960 COVID-19 Vaccine (#1) COVID-19 Vaccine (#1) [facility] Start: 1960 Annual wellness visit Medicare Initial Physical (IPPE) [facility] Start: 1960 Annual Wellness Visit (AWV) Annual Wellness Visit (AWV) [facility] Start: 1960 Hepatitis C screen Hepatitis C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 Medicaid Health Coverage: [employer]. JFS: [phone] Marjan An RN 03/08/244 [facility] 03-08-2024 Physician Emergency department Note EMERGENCY [...] syndrome Cirrhosis (HCC) Dehydration 12/22/22-12/26/22 admitted to [facility] Depression Diabetes mellitus (HCC) Gout Hepatitis C Hypertension Hyponatremia Hypothyroidism assisted prescription opiate use Nausea and vomiting 12/22/22-12/26/22 admitted at [facility] Pain management Sleep apnea noncompliant with device [...] min Stress: No Stress Concern Present (04/03/2023) [place] [facility] [employer]ational [employer] - Occupational Stress Questionnaire Feeling of Stress : Not at all Social Connections: Socially Isolated (12/07/2023) Social Connection and Isolation Panel [NHANES] Frequency of Communication with Friends and Family: Never Frequency of Social Gatherings with Friends and Family: Never Attends Restorationism Services: Never Active Member of Clubs or [...] 91.2 FIO2 Narrative: Performed by: Hanna Hernandez [facility], [address] [place] [id number] CLIA ID: [id number] SARS-COV-2 ANTIGEN - Normal SARS-CoV-2 Antigen Negative [...] 1 mg ( Oral See Alternative 03/08/24 5496) Or LORazepam (Ativan) injection 1 mg ( [...] syndrome, other drug intoxication. Ativan ordered per [facility] protocol. To aid in management, I [...] Nir Driscoll DO 03/09/24 0038 T [facility] 02-26-2024 Telephone encounter Note S: Pt calling [facility] nurse for medication refill B: Medication: [...] policy Protocols used: Medication Refill and Renewal [id number] [facility] 02-26-2024 Miscellaneous Notes S: Pt calling [facility] nurse for medication refill B: Medication: [...] policy Protocols used: Medication Refill and Renewal [id number] documented in this encounter [facility] 01-26-2024 Note Formatting of this n ote might be different from the original. TCC was notified by [facility] that auth has been approved. TCC messaged [...] RN, secetary, pt, and facility. TCC tasked [employer]ENT [employer] to transmit discharge orders to SNF and complete 7000. [facility] placed in follow up provider section. Discharge date updated and milestones completed. Pt will be transported to [facility] via ambulance transport today at 3:00 pm. [facility] 01-26-2024 Note Formatting of this n ote might be different from the original. TCC was notified by [facility] that auth has been approved. TCC messaged [...] RN, secetary, pt, and facility. TCC tasked [employer] to transmit discharge orders to SNF and complete 7000. [facility] placed in follow up provider section. Discharge date updated and milestones completed. Pt will be transported to [facility] via ambulance transport today at 3:00 pm. [facility] 01-26-2024 Miscellaneous Notes TCC was notified by [facility] that auth has been approved. TCC messaged [...] RN, secetary, pt, and facility. TCC tasked [facility] to transmit discharge orders to SNF and complete 7000. [facility] placed in follow up provider section. Discharge date updated and milestones completed. Pt will be transported to [facility] via ambulance transport today at 3:00 pm. Asked by [facility] to set transport to [facility]. Wheel chair transportation arranged through Sergio Shane for 1300 picking crew supervisor. 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 Patient Choice Patient Name: WOODY NI Date of : 1960 All Providers Sent [facility] Address: [address] [place], [place] [id number] Name: [facility] Member Phone: [phone] Address: [address] [place] [address] Discharge med list transmitted to [facility] via [facility] per TCC request. 7000 was entered into [employer] for the [facility]. Updated notes placed to [facility] via [facility] per TCC request. Await review and response regarding ability to accept. TCC notified. Pt remains on . Pt is medically ready for DC. TCC tasked PT and OT to see today. [facility] is willing to accept. No covid needed, pt is able to go now with SNF covid isolation policy. Updated PT and OT notes in. TCC tasked PATENT PARALEGAL to send updated MD,PT, and OT notes to [facility]. TCC messaged SNF via careport to start auth once updated notes are received. TCC updated pt at bedside. Pt agreeable to plan. Auth pending. TCC will follow for auth approval. Referral placed to [facility] via Careport per TCC request. [...] unsure what the name of his Medicaid casework supervisor is. Attempted to discuss [employer] and various agency assistance, however pt was fixated on talking about going to [facility] at discharge and requested SW put information on his discharge instructions. SW will provide follow up info for pt on his instructions per his request. Pt remains on . Covid positive 01/14. BLE venous duplex done 01/20. Addiction medicine signed off 01/19. OT recommending SNF as well. TCC called pt to get choices. FOC is [facility] and 2. [facility]. Pt asked TCC to call partner [facility] to get more choices if those deny. TCC tried to call partner and no one answered, no VM box to leave. TCC tasked weekend therapy to see 01/23 for updated notes. TCC tasked PATENT [employer]GAL to make the above referrals and ask [...] Limits Permission given to speak with patient security systems sales representative/caregiver as indicated: Confirmation of Payer with patient/family: Yes Payer Name: 1. anth medicare advantage 2. medicaid : Yes ([place]) Confirmation of Primary Care Physician: Confirmed PCP [...] Coverage: Yes Pharmacy [facility] Medication Management: Independent Transportation/Shopping: Assistance Provider [...] Outcome: Progressing documented in this encounter [facility] 01-26-2024 Note Formatting of this n ote might be different from the original. Asked by [facility] to set transport to [facility]. Wheel chair transportation arranged through [employer] for 1300 picking crew supervisor. 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 T [facility] 01-26-2024 Note Formatting of this n ote might be different from the original. Asked by [facility] to set transport to [facility]. Wheel chair transportation arranged through [facility] for 1300 picking crew supervisor. 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 T [facility] 01-26-2024 Note Formatting of this n ote might be different from the original. Patient Choice Patient Name: WOODY NI Date of : 1960 All Providers Sent Referral Name: [employer]. Address: [address] [place] [address] Name: [facility] [place] [facility] Member Phone: [phone] Address: [address] [place] [address] T [facility] 01-26-2024 Note Formatting of this n ote might be different from the original. Patient Choice Patient Name: WOODY NI Date of : 1960 All Providers Sent Referral Name: [employer]. Address: [address] [place] [address] Name: [facility] [place] [facility] Member Phone: [phone] Address: [address] [place] [address] T [facility] 01-26-2024 Note Formatting of this n ote might be different from the original. Discharge med list transmitted to [facility] via [employer] per TCC request. 7000 was entered into [employer] for the [facility]. [facility] 01-26-2024 Note Formatting of this n ote might be different from the original. Discharge med list transmitted to [facility] via [employer] per TCC request. 7000 was entered into [employer] for the [facility]. [facility] 01-26-2024 Note [facility] 01-26-2024 Hospital course Narrative Discharge Summary [...] abdominal pain a/w N/V/Diarrhea and presented to [place] ED. In ED he was feeling tremulous like going through WD. Feeling better after antiemetics and lorazepam. Found to have COVID infection and unable to go to detox unit and was admitted to for further eval and management He completed 3 days remdesivir for severe disease ppx Completed phenobarb taper 01/19 Benadryl helps his chronic pruritus He was DC to [facility] SIGNIFICANT DIAGNOSTIC STUDIES: none CONSULTANTS: Psychiatry RECOMMENDED [...] Your Medications These medications were sent to [facility] [address] [facility] [address], [facility] [address] Diclofenac Sodium 1 % gel magnesium chloride 64 MG EC tablet miconazole 2 % powder nicotine polacrilex 2 MG lozenge nystatin cream DIET: Adult diet Regular; 2000 ml ACTIVITY: No restriction. COMPLEXITY OF FOLLOW UP: [x] Moderate Complexity: follow up within 7-14 calendar days (81545) [] Severe Complexity: follow up within 7 calendar days (12489) FOLLOW UP TESTING, PENDING RESULTS OR REFERRALS AT TRANSITIONAL CARE VISIT: [] Yes [x] No PENDING STUDIES: none DISPOSITION: Skilled Facility FACILITY/HOME CARE AGENCY NAME: [facility], [facility] Follow up with No follow-up [...] 8:11 AM documented in this encounter [facility] 01-26-2024 History of Present illness Narrative Images from the original note were not included. Hospitalist Progress Note 01/26/2024 Subjective: Admit Date: 01/15/2024 PCP: Jani Quezada Room#: E5-612/E5-367 A Chief Complaint Patient presents with Vomiting Withdrawal Alcohol BRIEF HOSPITAL COURSE: Pt with h/o alcoholism, anxiety/depression, HTN, hypothyroidism, SHAYLA, gout, HepC, liver cirrhosis, chronic pain , DM2, hyponatremia, ETOH induced pancreatitis Pt drinks 18 beer daily, last drink on 01/13 at 6 pm . Woke up in the morning with abdominal pain a/w N/V/Diarrhea and presented to [place] ED. In ED he was feeling tremulous [...] syndrome Cirrhosis (HCC) Dehydration 12/22/22-12/26/22 admitted to [facility] Depression Diabetes mellitus (HCC) Gout Hepatitis C Hypertension Hyponatremia Hypothyroidism assisted prescription opiate use Nausea and vomiting 12/22/22-12/26/22 admitted at [facility] Pain management Sleep apnea noncompliant with device [...] Discharge - Date - tbd - Location -[facility] - Pending the following - precert (per notes accepted at [facility]) Total time spent (which include face to face and non face to face encounters) : 35 minutes Toxic drug monitoring/narrow therapeutic index drug monitoring : # Drug name : # Route administered : # Method of monitoring : Extended Emergency Contact Information Primary Emergency Contact: MalcomKingsley Relation: Significant Other Jose Maria Abad MD Division of Hospitalist Medicine [facility] Pt asking RN this morning for ativan, zofran, zanaflex, vistaril, tylenol, and benedryl all at the same time. RN educated pt that these are PRN medications and not scheduled and can't all be given at the same time. Images from the original note were not included. PHYSICAL THERAPY [facility] Treatment Note Name/MRN: Woody Ni ([id number]) Date of : 1960 Age: 63 y.o. [facility] A Discharge Recommendation: [facility] Facility Equipment Needed: (TBD at next level [...] that he is excited about going to [facility] later today. Pain: c/o chronic back pain, [...] "I just need help" "to go to [facility] today" Encounter Problems Encounter Problems (Active) [...] original note were not included. OCCUPATIONAL THERAPY [facility] Treatment Note Name/MRN: Woody Ni ([id number]) Date of : 1960 Age: 63 y.o. Room/Bed: E5-507/E5-507 A Discharge Recommendation: [facility] Facility Other: TBD next level therapy Prior [...] original note were not included. PHYSICAL THERAPY [facility] Name/MRN: Woody Ni ([id number]) Date: 01/25/2024 Attempted PT. Pt states he can't do any therapy right now because he needs his meds first. Will re-attempt as schedule allows. Amarilys Leary PTA Images from the original note were not included. Hospitalist Progress Note 01/25/2024 Subjective: Admit Date: 01/15/2024 PCP: Jani Quezada Room#: E5-277/E5-611 A Chief Complaint Patient presents with Vomiting Withdrawal Alcohol BRIEF HOSPITAL COURSE: Pt with h/o alcoholism, anxiety/depression, HTN, hypothyroidism, SHAYLA, gout, HepC, liver cirrhosis, chronic pain , DM2, hyponatremia, ETOH induced pancreatitis Pt drinks 18 beer daily, last drink on 01/13 at 6 pm . Woke up in the morning with abdominal pain a/w N/V/Diarrhea and presented to [place] ED. In ED he was feeling tremulous [...] syndrome Cirrhosis (HCC) Dehydration 12/22/22-12/26/22 admitted to [facility] Depression Diabetes mellitus (HCC) Gout Hepatitis C Hypertension Hyponatremia Hypothyroidism assisted prescription opiate use Nausea and vomiting 12/22/22-12/26/22 admitted at [facility] Pain management Sleep apnea noncompliant with device [...] Radha Berry MD Division of Hospitalist Medicine [facility] Images from the original note were not included. Hospitalist Progress Note 01/24/2024 Subjective: Admit Date: 01/15/2024 PCP: Jani Quezada Room#: E5-507/E5-502 A Chief Complaint Patient presents with Vomiting Withdrawal Alcohol BRIEF HOSPITAL COURSE: Pt with h/o alcoholism, anxiety/depression, HTN, hypothyroidism, SHAYLA, gout, HepC, liver cirrhosis, chronic pain , DM2, hyponatremia, ETOH induced pancreatitis Pt drinks 18 beer daily, last drink on 01/13 at 6 pm . Woke up in the morning with abdominal pain a/w N/V/Diarrhea and presented to [place] ED. 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 Hospitalist Progress Note 01/23/2024 Subjective: Admit Date: 01/15/2024 PCP: Jani Quezada Room#: [id number] A Chief Complaint Patient presents with Vomiting Withdrawal Alcohol BRIEF HOSPITAL COURSE: Pt with h/o alcoholism, anxiety/depression, HTN, hypothyroidism, SHAYLA, gout, HepC, liver cirrhosis, chronic pain , DM2, hyponatremia, ETOH induced pancreatitis Pt drinks 18 beer daily, last drink on 01/13 at 6 pm . Woke up in the morning with abdominal pain a/w N/V/Diarrhea and presented to [place] ED. In ED he was feeling tremulous [...] syndrome Cirrhosis (HCC) Dehydration 12/22/22-12/26/22 admitted to [facility] Depression Diabetes mellitus (HCC) Gout Hepatitis C Hypertension Hyponatremia Hypothyroidism 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 prescription opiate use Nausea and vomiting 12/22/22-12/26/22 admitted at [facility] Pain management Sleep apnea noncompliant with device [...] Ethel Anna DO Division of Hospitalist Medicine [facility] Nutrition Assessment Type and Reason for Visit: [...] Accumulation: No significant fluid accumulation (per flowsheet) [employer] Strength: Normal neurology tech strength Nutrition Assessment: Pt with PMH including alcoholism, cirrhosis, HTN, DM, hepatitis C, hypothyroidism, gout, chronic back pain, SHAYLA, depression, falls, debility, presented to [facility] ED on 01/15/24 with N/V/D and abdominal [...] insecurity and financial struggles. He remains in [facility] plus isolation. RD called into [...] On: Kcal/kg Weight Used for Energy Requirements: [employer] Weight for Energy Calculation (kg): 75 kg Total Energy Requirements (kcals/day): 27 kcal/kg = 2024 kcal/day Weight Used for Protein Requirements: [employer] Weight in Kg Used for Protein Requirements: [...] Current Nutrition Therapies: Adult diet Regular; GI [place]on (GERD/Peptic Ulcer) Current Oral Intake Average Meal Intake: 0% Average Supplements Intake: 76-100% (per pt report) Anthropometric Measures: Height: 177.8 cm (5' 10") Current Body Weight: (DANTE- no new weight) Admission Body Weight: 79.3 kg (174 lb 13.2 oz) ([facility] 01/14) Usual Body Weight: (171# on 02/11/23, 172# on 04/11/23, 160# on 10/22/23) [employer] Body Weight (lbs) (Calculated): 166 lbs [employer] Body Weight (Kg) (Calculated): 75 kg % [employer] Body Weight (Calculated): 105.3 % BMI (kg/m2) [...] to determine Sloane Lyons RD, LD Contact: *[phone] or via [employer] chat Images from the original note were not included. OCCUPATIONAL THERAPY [facility] Treatment Note Name/MRN: Woody Ni ([id number]) Date of : 1960 Age: 63 y.o. Room/Bed: E5507/E5507 A Discharge Recommendation: [facility] Facility Other: TBD next level therapy Prior [...] Admit Date: 01/15/2024 PCP: Jani Quezada Room#: E5-110/E5-014 A Chief Complaint Patient presents with Vomiting Withdrawal Alcohol BRIEF HOSPITAL COURSE: Pt with h/o alcoholism, anxiety/depression, HTN, hypothyroidism, SHAYLA, gout, HepC, liver cirrhosis, chronic pain , DM2, hyponatremia, ETOH induced pancreatitis Pt drinks 18 beer daily, last drink on 01/13 at 6 pm . Woke up in the morning with abdominal pain a/w N/V/Diarrhea and presented to [place] ED. 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 OCCUPATIONAL THERAPY [facility] Initial Evaluation Name/MRN: Woody Ni ([id number]) Evaluation Date: 01/21/2024 Date of : 1960 Admission Date: 01/15/2024 10:30 AM Age: 63 y.o. [facility] A Discharge Recommendation: [facility] Facility Other: TBD next level therapy Assessment [...] syndrome Cirrhosis (HCC) Dehydration 12/22/22-12/26/22 admitted to [facility] Depression Diabetes mellitus (HCC) Gout Hepatitis C Hypertension Hyponatremia Hypothyroidism 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 prescription opiate use Nausea and vomiting 12/22/22-12/26/22 admitted at [facility] Pain management Sleep apnea noncompliant with device [...] Needs Assist Receives Help From: Spouse Active Single Resource Boss: No Prior Level of Function ADL Assistance: [...] of Care supervision is transferred to a [facility] Therapy Services Occupational Therapist. Goals and/or treatment plan was established in collaboration with patient/family/other representatives. Images from the original note were not included. Hospitalist Progress Note 01/21/2024 Subjective: Admit Date: 01/15/2024 PCP: Jani Quezada Room#: [id number] A Chief Complaint Patient presents with Vomiting Withdrawal Alcohol BRIEF HOSPITAL COURSE: Pt with h/o alcoholism, anxiety/depression, HTN, hypothyroidism, SHAYLA, gout, HepC, liver cirrhosis, chronic pain , DM2, hyponatremia, ETOH induced pancreatitis Pt drinks 18 beer daily, last drink on 01/13 at 6 pm . Woke up in the morning with abdominal pain a/w N/V/Diarrhea and presented to [place] ED. In ED he was feeling tremulous [...] itching. 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 prescription opiate use Nausea and vomiting 12/22/22-12/26/22 admitted at [facility] Pain management Sleep apnea noncompliant with device [...] Ethel Anna DO Division of Hospitalist Medicine [facility] Images from the original note were not [...] Admit Date: 01/15/2024 PCP: Jani Quezada Room#: [id number]/[id number] A Chief Complaint Patient presents with Vomiting Withdrawal Alcohol BRIEF HOSPITAL COURSE: Pt with h/o alcoholism, anxiety/depression, HTN, hypothyroidism, SHAYLA, gout, HepC, liver cirrhosis, chronic pain , DM2, hyponatremia, ETOH induced pancreatitis Pt drinks 18 beer daily, last drink on 01/13 at 6 pm . Woke up in the morning with abdominal pain a/w N/V/Diarrhea and presented to [place] ED. In ED he was feeling tremulous [...] All questions answered. Adult diet Regular; GI [place] (GERD/Peptic Ulcer) 24HR INTAKE/OUTPUT: Intake/Output Summary (Last 24 hours) at 01/20/2024 1337 Last data filed at 01/20/2024 0722 Gross per 24 hour Intake 120 ml Output 1050 ml Net -930 ml Past Medical History: Past Medical History: Diagnosis Date Acid reflux Alcoholism (CMS/HCC) (HCC) Anxiety Back pain Chronic pain syndrome Cirrhosis (HCC) Dehydration 12/22/22-12/26/22 admitted to [facility] Depression Diabetes mellitus (HCC) Gout Hepatitis C Hypertension Hyponatremia Hypothyroidism 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 prescription opiate use Nausea and vomiting 12/22/22-12/26/22 admitted at [facility] Pain management Sleep apnea noncompliant with device [...] Ethel Anna DO Division of Hospitalist Medicine [facility] Images from the original note were not included. PHYSICAL THERAPY [facility] Initial Evaluation Name/MRN: Woody Ni ([id number]) Evaluation Date: 01/20/2024 Date of : 1960 Admission Date: 01/15/2024 10:30 AM Age: 63 y.o. Room/Bed: E5-507/E5503 A Discharge Recommendation: [facility] Facility Equipment Needed: (TBD) Assessment IMPRESSION: Patient [...] syndrome Cirrhosis (HCC) Dehydration 12/22/22-12/26/22 admitted to [facility] Depression Diabetes mellitus (HCC) Gout Hepatitis C Hypertension Hyponatremia Hypothyroidism 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 prescription opiate use Nausea and vomiting 12/22/22-12/26/22 admitted at [facility] Pain management Sleep apnea noncompliant with device [...] Needs Assist Receives Help From: Spouse Active Single Resource Boss: No Prior Level of Function ADL Assistance: [...] Raw Score (No Stairs) : 17 [facility] Score: Walked 25 ft or more [...] of Care supervision is transferred to a [facility] Therapy Services Physical Therapist. Goals and/or treatment [...] Following admission in October, noted transition to [facility] ([facility]) Patient phone call: fully oriented/coherent; irritable saying [...] PT/OT evaluation for recommendations on disposition: If care home facility is recommended due to debility: one that offers CHEMDEP treatment as part of their program may be his best option towards Recovery (ie: [facility] or [facility]) Will follow thru tomorrow and provide list [...] Accumulation: No significant fluid accumulation (per flowsheet) Indigo Mixer Strength: Normal neurology tech strength Nutrition Assessment: Pt with PMH including alcoholism, cirrhosis, HTN, DM, hepatitis C, hypothyroidism, gout, chronic back pain, SHAYLA, depression, falls, debility, presented to [facility] ED on 01/15/24 with N/V/D and abdominal [...] On: Kcal/kg Weight Used for Energy Requirements: [employer] Weight for Energy Calculation (kg): 75 kg Total Energy Requirements (kcals/day): 27 kcal/kg = 2024 kcal/day Weight Used for Protein Requirements: [employer] Weight in Kg Used for Protein Requirements: [...] Current Nutrition Therapies: Adult diet Regular; GI Burleson (GERD/Peptic Ulcer) Current Oral Intake Average Meal Intake: 76-100% Average Supplements Intake: 51-75% Anthropometric Measures: Height: 177.8 cm (5' 10") Current Body Weight: 79.3 kg (174 lb 13.2 oz) (01/17) Admission Body Weight: 79.3 kg (174 lb 13.2 oz) ([facility] 01/14) Usual Body Weight: (171# on 02/11/23, 172# on 04/11/23, 160# on 10/22/23) [employer] Body Weight (lbs) (Calculated): 166 lbs [employer] Body Weight (Kg) (Calculated): 75 kg % [employer] Body Weight (Calculated): 105.3 % BMI (kg/m2) [...] to determine Sloane Lyons RD, LD Contact: *[phone] or via Bo[employer] chat Wound Care consulted for Pressure Injury Prevention. Pt's Pranav score= 18 on 01/15, Pranva now=20 Skin Care precaution order set in place. Certified Orthoptist consult in place. PT consult N/A, subscores=3. Will continue to follow pt. Please Voicera for any questions or concerns. Gina Sarmiento RN, CWCN Images from the original note were not included. Hospitalist Progress Note 01/19/2024 Subjective: Admit Date: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 Emergency department Note Phoned [facility]. Hand off report given to MEGGAN Laurent. Nurse requesting that patient have another dose of ativan prior to leaving. Physician informed. Pratibha Okeefe RN 01/15/24 1647 [facility] 01-15-2024 Emergency department Note Phoned [facility] [...] otherwise acutely negative except as in the DEERING. 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 prescription opiate use Nausea and vomiting 12/22/22-12/26/22 admitted at [facility] Pain management Sleep apnea noncompliant with device [...] min Stress: No Stress Concern Present (04/03/2023) [place] [employer]ational [employer] - Occupational Stress Questionnaire Feeling of Stress : Not at all Social Connections: Socially Isolated (12/07/2023) Social Connection and Isolation Panel [NHANES] Frequency of Communication with Friends and Family: Never Frequency of Social Gatherings with Friends and Family: Never Attends Restorationism Services: Never Active Member of Clubs or [...] Culture. Procedure Abnormality Status --------- ------ Complete Urinalysis[[id number]] Abnormal Final result Please view results for [...] after the patient's nausea improved. Admitted to [facility]. Diagnoses as of 01/15/24 1506 Alcohol [...] squad to room 6. Patient transferred from [facility] to ED bed by medics without difficulty. Patient called squad for generalized weakness and alcohol withdrawal. Patient actively coughing, vomiting and shaking upon arrival. Patient admits to drinking 18 beers yesterday but has had nothing today because he feels ill. Patient also complains of headache and diarrhea. Patient placed on staff technologist and CIWA done upon arrival. Seizure pads placed on bed. documented in this encounter [facility] 01-15-2024 Emergency department Note RN spoke Christie per patient request and asked her to bring him glasses and his cane, Christie acknowledged and thanked RN for the call. Aubree Ratliff RN 01/15/24 1322 [facility] 01-15-2024 Note NOTE: This result is for medical treatment only. Analysis performed using non-forensic procedures. [facility] 01-15-2024 Emergency department Note Patient declined anything to eat or drink at this time. Call light within reach Pratibha Okeefe RN 01/15/24 1241 [facility] 01-15-2024 Emergency department Triage note Patient arrived from home via squad to room 6. Patient transferred from [facility] to ED bed by medics without difficulty. Patient called squad for generalized weakness and alcohol withdrawal. Patient actively coughing, vomiting and shaking upon arrival. Patient admits to drinking 18 beers yesterday but has had nothing today because he feels ill. Patient also complains of headache and diarrhea. Patient placed on staff technologist and CIWA done upon arrival. Seizure pads placed on bed. [facility] 01-15-2024 Physician Emergency department Note EMERGENCY [...] otherwise acutely negative except as in the DEERING. 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 prescription opiate use Nausea and vomiting 12/22/22-12/26/22 admitted at [facility] Pain management Sleep apnea noncompliant with device [...] min Stress: No Stress Concern Present (04/03/2023) [place] [employer]ational [employer] - Occupational Stress Questionnaire Feeling of Stress : Not at all Social Connections: Socially Isolated (12/07/2023) Social Connection and Isolation Panel [NHANES] Frequency of Communication with Friends and Family: Never Frequency of Social Gatherings with Friends and Family: Never Attends Restorationism Services: Never Active Member of Clubs or [...] Culture. Procedure Abnormality Status --------- ------ Complete Urinalysis[[id number]] Abnormal Final result Please view results for [...] after the patient's nausea improved. Admitted to [facility]. Diagnoses as of 01/15/24 1506 Alcohol [...] Provider Daniel Ewing DO 01/15/24 1510 [facility] 12-25-2023 Note HNO ID: [id number] Author: CURTIS ISABEL RT(R) Service: ? Author Type: Tool Maker Apprentice Type: Progress Notes Filed: 12/25/2023 14:59 Note [...] PATIENT PRESENTS WITH AN IMPLANTABLE OR ATTACHED DOCTOR OF NURSE ANESTHESIA PRACTICE: No ALLERGIES: Reviewed and unchanged CONTRAST ALLERGY: [...] DATE: December 25, 2023 TIME: 2:59 PM [facility] 12-24-2023 Note HNO ID: [id number] Author: MUNIRA STALEY PA-C Service: ? Author Type: Physician Experience Design Director Type: Progress Notes Filed: 12/24/2023 12:52 Note Text: CHIEF COMPLAINT: Patient presents with: Hospital F/U: ER 10/20/23 HPI Accompanied by significant other Kingsley Ni is a 63 year old male with PMHx positive for DM, HTN, HLD here today for Hospital F/U (ER 10/20/23). Seen last in 2021 for h/o Hep C, cirrhosis, EtOH abuse. Pt performed labs, got recommended EGD through [facility]. Recently admitted at [facility] 10/2023 due to alcohol induced pancreatitis, wanting to quit EtOH. Hospital course reviewed and copied/pasted below. No imaging performed. Following with [facility] addition medicine program to d/c alcohol. Currently drinking 12-18 beers per day. Admits to generalized abdominal pain, 10/10, increased acid indigestion on a regular basis, intermittent episodes of emesis daily. No longer taking previously prescribed Protonix. Bms are multiple per day, loose to watery, no blood/black coloring. Weight has been fluctuating at about 10 lbs. Low grade fevers at home. [facility] Admission 10/2023 HOSPITAL COURSE: Woody Ni [...] [facility] Woody Ni is a [...] (FLONASE) 50 mcg/actuation nasal spray Use 1 Wheeler in the nose once daily as needed. [...] HISTORY Procedure Laterality (more content not included)... [facility] 12-07-2023 History of Present illness Narrative Outpatient Behavioral Health Initial Assessment Start Time: 856, End Time: 1008 [address] patient have a [address] Appointed Guardian? None Does patient have a Durable Power of Oncology Account Specialist? Yes (Name) (Kingsley Murdock only) Does the patient have an Advanced Directive? If Yes, copy received? Patient would like information No Screening Tool Score Comment (required for each screening tool) PHQ-9 23 (PHQ-2: 6) severe NEMESIO-7 21 severe AUDIT-C 12 significant DAST-10 (!) 8 significant Life Events Checklist Positive 8 items selected PCL-5 0 insignificant Language Preferred Language: Hungarian Languages Spoken: Hungarian Presenting Problem(s) Reason for visit as reported [...] place to sleep or slept in a group home (including now)?: No Patient feels safe at [...] identify any impact on treatment) Pt denies Jain/Spiritual Orientation (note if patient identifies any belief in higher power, amish belief, or not. 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 [facility] Accessed Medicare and Medicaid Legal History [...] If the patient has ever been to custodial or in nursing home, list where and how much time the patient served:: NA Is there a relationship between the presenting condition and legal involvement? 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 He was in a care home rehab facility 11/10/23 Past Surgical History: Procedure [...] abstinence: 2 year period of sobriety in 2295-8623. Then his medication got reduced. Twelve-step meeting [...] X4 Level of Consciousness: Alert Thought Processes: Blackduck Thought Content: Unremarkable Delusions: (none reported or [...] October followed by 2 wks at a care home facility. Pt was terminated from pain management [...] house. He communicates with family and live-in [facility]. He reported a friend delivers his alcohol but has been advised not to do so anymore. He reported Dr. Márquez used to prescribe him Lexapro and Wellbutrin but she relocated to [place]. Pt interested in establishing care with a psychiatrist. Pt advised to contact [facility] psychiatry or community mental health. Pt apprehensive [...] HIPOLITO Lafleur documented in this encounter [facility] 10-27-2023 History of Present illness Narrative Report given to Iliana at [facility]. Images from the original note were not included. PHYSICAL THERAPY [facility] Treatment Note Name/MRN: Woody Ni ([id number]) Date of : 1960 Age: 63 y.o. Room/Bed: B4-454/B4-454 B Visit #: 1 out of 5 visits Discharge Recommendation: [facility] Facility Equipment Needed: No Prior Level of [...] original note were not included. OCCUPATIONAL THERAPY [facility] Treatment Note Name/MRN: Woody Ni ([id number]) Date of : 1960 Age: 63 y.o. [facility] B Visit #: 2 out of 5 visits Discharge Recommendation: [facility] Facility Equipment Needed: No Prior Level of [...] Pancytopenia unchanged. Discussed with patient, , and staffing analyst. Total visit time > 35 minutes. 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 Pharmacy has raised the possibility of spontaneous HIT even without heparin exposure. Low possibility for HIT on [place] criteria. Will order PF4 titer. Discussed with patient's staffing analyst. Will continue to monitor. Total visit time > 35 minutes. Images from the original note were not included. PHYSICAL THERAPY [facility] Name/MRN: Woody Ni ([id number]) Date: 10/23/2023 Chart review completed this date. PT attempted. RN cleared for therapy. States pt is currently on the BSC. SKI INSTRUCTOR enters the room to find pt in bed c/o not being allowed to use the BSC. SKI INSTRUCTOR notices BSC lid up with urine in the basin. Pt states nsg won't let him get up for anything...not to walk, go to the bathroom, nothing! SKI INSTRUCTOR explains she is there to see how he is moving and to allow him to get up and move about. Pt scoffs and says, No! The nurse says I can't get up so I am not getting up." Pt then rolls away from SKI INSTRUCTOR and closes his eyes. Max encouragement provided with no success. Multiple options for therapy participation provided with no success. PT will continue to follow. Will re-attempt another time/date as schedule permits. Iliana Anne, SKI INSTRUCTOR Images from the original note were not included. OCCUPATIONAL THERAPY [facility] Treatment Note Name/MRN: Woody Ni ([id number]) Date of : 1960 Age: 63 y.o. Room/Bed: B4-454/B4454 B Visit #: 1 out of 5 visits Discharge Recommendation: [facility] Facility Equipment Needed: No Prior Level of [...] at risk for falls, nurse notified, and rail project engineer present Restraints: No Education Education Given To: [...] a withdrawal standpoint. 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 but no signs of bleeding or [...] (gastrocnemius) Fluid Accumulation: No significant fluid accumulation Indigo Mixer Strength: Not Performed Nutrition Assessment: Pt was [...] (kg): 73 kg Total Energy Requirements (kcals/day): 8163-0861 kcals (25-30 kcals/kg) Weight Used for Protein Requirements: Current Weight in Kg Used for Protein Requirements: 73 kg Estimated Total Protein (g/day): 73-88 (1-1.2g/kg) Estimated Daily Total Fluid (ml/day): 9346-1777 ml/day or per MD Nutrition Related Findings: [...] 08/2022, 182#-02/13/23) % Weight Change (Calculated): -23.9 [employer] Body Weight (lbs) (Calculated): 166 lbs [employer] Body Weight (Kg) (Calculated): 75 kg % [employer] Body Weight (Calculated): 96.3 % BMI (kg/m2) [...] soon to determine Kristine George RD Contact: *[phone] or via Secure Chat Department of Family [...] original note were not included. OCCUPATIONAL THERAPY [facility] Initial Evaluation Name/MRN: Woody Ni ([id number]) Evaluation Date: 10/21/2023 Date of : 1960 Admission Date: 10/20/2023 5:00 PM Age: 63 y.o. Room/Bed: 09/29 Discharge Recommendation: [facility] Facility Equipment Needed: No Assessment IMPRESSION: Pt [...] syndrome Cirrhosis (HCC) Dehydration 12/22/22-12/26/22 admitted to [facility] Depression Diabetes mellitus (HCC) Gout Hepatitis C Hypertension Hyponatremia Hypothyroidism assisted prescription opiate use Nausea and vomiting 12/22/22-12/26/22 admitted at [facility] Pain management Sleep apnea noncompliant with device [...] base quad cane Transfer Assistance: Independent Active Single Resource Boss: No Occupation: On disability Prior Level of [...] of Care supervision is transferred to a [facility] Therapy Services Occupational Therapist. Goals and/or treatment plan was established in collaboration with patient/family/other representatives. Images from the original note were not included. PHYSICAL THERAPY [facility] Initial Evaluation Name/MRN: Woody Ni ([id number]) Evaluation Date: 10/21/2023 Date of : 1960 Admission Date: 10/20/2023 5:00 PM Age: 63 y.o. 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 Goals and/or treatment plan was established in collaboration with patient/family/other representatives. documented in this encounter [facility] 10-27-2023 Note Formatting of this n [...] any other needs or concerns arise. [facility] 10-27-2023 Miscellaneous Notes SW follow up. [...] time. Notified [facility] of transportation via [facility]. Will update patient at bedside. Patient does have a SW consult for HCPOA. Will complete HCPOA paperwork with patient prior to discharge. Patient Choice Patient Name: WOODY NI Date of : 1960 All Providers Sent Referral Name: [facility] - CPAN Member Phone: [phone] Address: [address] [place] [address] [facility] per TCC request. 7000 was entered into [employer] for the SNF- Facility is aware Discharge order written. Tasked PATENT PARALEGAL to complete 7000 and send dc packet to Dakota [facility]. Did update primary care nurse and social media campaign manager. . Updated attending that auth has been obtained for [facility]. Checking to determine if auth is good through tomorrow. . Images from the original note were not included. [facility] Palliative Care Transitions of [...] Chronic alcohol abuse who was admitted to [facility] on 10/20/23 with complain of nausea, vomiting, [...] has been signed, will request assistance from social media campaign manager - discussed CPR, intubation, vent - patient [...] Initial Assessment Date: 10/22/2023 Patient Name: Woody iN : 1960 Patient Information Source of Information: Patient Name/Contact Information: KINGSLEY CARL [phone] SIGNIFICANT OTHER Cognition/Language: WFL - Within Functional Limits Permission given to speak with patient security systems sales representative/caregiver as indicated: Yes Confirmation of Payer [...] Coverage: Yes Pharmacy Used: [facility] [place] Medication Management: Prescription pick-up Who assists with [...] WITH HHC VS SNF Discharge Planning Actions: [facility] Facility referral indicated [place] of choice: [place] of choice discussed, Choice list provided Patient's [...] like referral made to [facility]. Tasked [facility] to place referral to [facility] [...] shift include documented in this encounter [facility] 10-27-2023 Hospital course Narrative Discharge Summary [...] diet and he is being discharged to [facility] SIGNIFICANT DIAGNOSTIC STUDIES: Labs xrays CONSULTANTS: [...] Complexity: follow up within 7-14 calendar days (83578) [] Severe Complexity: follow up within 7 calendar days (93521) FOLLOW UP TESTING, PENDING RESULTS OR REFERRALS AT TRANSITIONAL CARE VISIT: [] Yes [] No PENDING STUDIES: none DISPOSITION: Skilled Facility [facility] Follow up with Wild Rowe DO [address] [facility] [address] [facility] [address] Schedule an appointment as soon as possible for a visit Peg to help with alcohol cravings [facility] Psych IOP [address] [facility] [phone] Schedule an appointment as [...] 9:00 AM documented in this encounter [facility] 10-27-2023 Note Formatting of this n ote might be different from the original. Transportation arranged through [facility] by cot set for 12 pm. Notified RN and TCC of transportation time. Notified Dakota Rhodes of transportation via [employer]. Will update patient at bedside. Patient does have a SW consult for HCPOA. Will complete HCPOA paperwork with patient prior to discharge. [facility] 10-27-2023 Note Formatting of this n ote might be different from the original. Patient Choice Patient Name: WOODY NI Date of : 1960 All Providers Sent Referral Name: Dakota [facility]Z Member Phone: [phone] Address: [address] [place] [id number] [email or web address] 10-27-2023 Note Formatting of this n ote might be different from the original. Discharge med list transmitted to [facility] [place] via [facility] per TCC request. 7000 was entered into [facility] for the SNF- Facility is aware [facility] 10-27-2023 Note Formatting of this n ote might be different from the original. Discharge order written. Tasked PATENT PARALEGAL to complete 7000 and send dc packet to [facility]. Did update primary care nurse and social media campaign manager. . [facility] [facility] Note Formatting of this n ote might be different from the original. Updated attending that auth has been obtained for [facility]. Checking to determine if auth is good through tomorrow. . [facility] 10-26-2023 Note Formatting of this n ote is different from the original. Images from the original note were not included. [facility] Palliative Care Transitions of [...] Chronic alcohol abuse who was admitted to [facility] on 10/20/23 with complain of nausea, vomiting, [...] has been signed, will request assistance from social media campaign manager - discussed CPR, intubation, vent - patient [...] SIGNED: ERNESTINE MARTIN MD 10/26/2023, 9:32 AM [facility] 10-26-2023 Consult note Associated Order (s): [...] has been signed, will request assistance from social media campaign manager - discussed CPR, intubation, vent - patient [...] Chronic alcohol abuse who was admitted to [facility] on 10/20/23 with complain of nausea, vomiting, [...] syndrome Cirrhosis (HCC) Dehydration 12/22/22-12/26/22 admitted to [facility] Depression Diabetes mellitus (HCC) Gout Hepatitis C Hypertension Hyponatremia Hypothyroidism assisted prescription opiate use Nausea and vomiting 12/22/22-12/26/22 admitted at [facility] Pain management Sleep apnea noncompliant with device [...] other systems were reviewed and are negative. Durkee Symptom Assessment Score Durkee Score Pain Score 9 Tiredness Score 6 Nausea Score 3 Depression Score 0 Anxiety Score 0 Drowsiness Score 0 Anorexia Score (0= eating well, 10= not eating) 6 Wellbeing Score (10= worst sense of well-being) 8 Constipation 0 Dyspnea Score (0= no shortness of breath) 0 FLACC Scale (For Pain Assessment of the Non-Verbal Patient) Patient verbal Assessed by: provider. Social history: [place] status: yes, served in [employer] Marital status: co-habitating Living status: with friend [...] - see A and P We discussed [id number] concerns identified by the patient/surrogate, including - see A and P Interventions reviewed: Resuscitation procedures (CPR), Mechanical ventilator support, and Diagnostic testing Advance Care Planning Documents: Healthcare Power of Oncology Account Specialist: Not completed Financial Power of Oncology Account Specialist: Other Unknown Living Will: Not completed Code Status: Full Code In addition to the time spent evaluating and managing the patient's medical diagnoses above, 15 minutes of this encounter was spent discussing advanced care planning documented above. Please bill [id number] for 16-46 minutes and add additional [id number] for >46 minutes. Family Meeting: Participants: patient [...] hospice appropriate? TBD Transition Note Initiated: yes. [facility] [employer] Phone: 10-26-2023 Consult note Associated Order (s): [...] has been signed, will request assistance from social media campaign manager - discussed CPR, intubation, vent - patient [...] Chronic alcohol abuse who was admitted to [facility] on 10/20/23 with complain of nausea, vomiting, [...] History: Diagnosis Date Acid reflux Alcoholism (CMS/HCC) ([facility]) Anxiety Back pain Chronic pain syndrome Cirrhosis (HCC) Dehydration 12/22/22-12/26/22 admitted to [facility] Depression Diabetes mellitus (HCC) Gout Hepatitis C Hypertension Hyponatremia Hypothyroidism assisted prescription opiate use Nausea and vomiting 12/22/22-12/26/22 admitted at [facility] Pain management Sleep apnea noncompliant with device [...] other systems were reviewed and are negative. [place]kee Symptom Assessment Score Durkee Score Pain Score 9 Tiredness Score 6 Nausea Score 3 Depression Score 0 Anxiety Score 0 Drowsiness Score 0 Anorexia Score (0= eating well, 10= not eating) 6 Wellbeing Score (10= worst sense of well-being) 8 Constipation 0 Dyspnea Score (0= no shortness of breath) 0 FLACC Scale (For Pain Assessment of the Non-Verbal Patient) Patient verbal Assessed by: provider. Social history: [place] status: yes, served in [employer] Marital status: co-habitating Living status: with friend [...] - see A and P We discussed obczkxo-qt-[id number] concerns identified by the patient/surrogate, including - see A and P Interventions reviewed: Resuscitation procedures (CPR), Mechanical ventilator support, and Diagnostic testing Advance Care Planning Documents: Healthcare Power of Oncology Account Specialist: Not completed Financial Power of Oncology Account Specialist: Other Unknown Living Will: Not completed Code Status: Full Code In addition to the time spent evaluating and managing the patient's medical diagnoses above, 15 minutes of this encounter was spent discussing advanced care planning documented above. Please bill [id number] for 16-46 minutes and add additional [id number] for >46 minutes. Family Meeting: Participants: patient [...] is a 63-year-old white male presented to [facility] ER 10/20/2023 with complaints of nausea, vomiting, [...] mellitus, gout, hepatitis C, hypertension, hyponatremia, hypothyroidism, penitentiary prescription opioid use, nausea and vomiting, pain [...] lives in the home environment assisted by technician trainee family members. Objective examination shows middle-aged white [...] to monitor. Extensive discussion with patient and staffing analyst. Patient represents a case of high complexity [...] syndrome Cirrhosis (HCC) Dehydration 12/22/22-12/26/22 admitted to [facility] Depression Diabetes mellitus (HCC) Gout Hepatitis C Hypertension Hyponatremia Hypothyroidism 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 prescription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 [facility]. 12 Step Meetings: denies. Medication Assisted Treatment: [...] syndrome Cirrhosis (HCC) Dehydration 12/22/22-12/26/22 admitted to [facility] Depression Diabetes mellitus (HCC) Gout Hepatitis C Hypertension Hyponatremia Hypothyroidism assisted prescription opiate use Nausea and vomiting 12/22/22-12/26/22 admitted at [facility] Pain management Sleep apnea noncompliant with device [...] min Stress: No Stress Concern Present (04/03/2023) [place] [employer] - Occupational Stress Questionnaire [...] 06/30/2023 Patient Name: WOODY NI : 1960 [facility]#: [id number] Exam Date/Time: 06/30/2023 17:48 Procedure: CT HEAD [...] Report Dictated on Electronically Signed By: Dallas Hansk MD Electronically Signed Date/Time: 06/30/2023 5:[address] cervical spine wo IV contrast Result Date: 06/30/2023 Patient Name: WOODY NI : 1960 [id number] Exam Date/Time: 06/30/2023 17:49 Procedure: CT CERVICAL [...] first and regain strength. Then enroll in [facility]'s chemical dependency intensive outpatient program, and use [...] visit. Associated Order(s): IP CONSULT TO NEPHROLOGY [facility] Consult Note Reason for [...] syndrome Cirrhosis (HCC) Dehydration 12/22/22-12/26/22 admitted to [facility] Depression Diabetes mellitus (HCC) Gout Hepatitis C Hypertension Hyponatremia Hypothyroidism 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 prescription opiate use Nausea and vomiting 12/22/22-12/26/22 admitted at [facility] Pain management Sleep apnea noncompliant with device [...] min Stress: No Stress Concern Present (04/03/2023) [place] [employer] - Occupational Stress Questionnaire [...] any questions or concerns. Ophelia Ramos APRN, CLOTHESPIN MACHINE OPERATOR [facility], [facility] [phone] office Associated attestation - Kennedi Pérez MD - 07/01/2023 3:34 PM EDT Seen and examined. Agree with above A and p. Hyponatremia responding to volume. Borderline rapid overcorrection of Na, hold IVF. Periodic Na checks throughout the rest of the day to trend Na. Alcohol cessation counseling. documented in this encounter [facility] 07-01-2023 Note Formatting of this n ote might be different from the original. Care Managment Initial Assessment Date: 07/01/2023 Patient Name: Woody Ni : 1960 Patient Information Source of Information: Patient Cognition/Language: WFL - Within Functional Limits Permission given to speak with patient security systems sales representative/caregiver as indicated: Yes Confirmation of Payer with patient/family: Yes Payer Name: [place]/ Medicaid secondary : Yes (Is not Active [...] He sees Dr. Quezada and uses the [facility] in [place] as his pharmacy. [place] is [place] in [place]. The patient reports that his [...] He notes he recently was sent to [facility] for some short term rehab. Chart review reveals he was just sent to the facility on 06/26. He notes he left the facility as they ran out of his Phenobarbitol. He was sent to the facility skilled under his [place] [employer] insurance. The patient has been seen again by therapy and HHC has been recommended. The patient has voiced that he desires Residential Treatment for his ETOH. S/W will work to see if patient can get into a facility from here. ELL Murray [facility] 07-01-2023 Note Formatting of this n ote might be different from the original. Care Managment Initial Assessment Date: 07/01/2023 Patient Name: Woody Ni : 1960 Patient Information Source of Information: Patient Cognition/Language: WFL - Within Functional Limits Permission given to speak with patient security systems sales representative/caregiver as indicated: Yes Confirmation of Payer with patient/family: Yes Payer Name: [place]/ Medicaid secondary : Yes (Is not Active [...] Quezada and uses the [facility] in [place] as his pharmacy. He is [place]. The patient reports that his [...] He notes he recently was sent to [facility] for some short term rehab. Chart review reveals he was just sent to the facility on 06/26. He notes he left the facility as they ran out of his Phenobarbitol. He was sent to the facility skilled under his [place] insurance. The patient has been seen again by therapy and HHC has been recommended. The patient has voiced that he desires Residential Treatment for his ETOH. S/W will work to see if patient can get into a facility from here. ELL Murray [facility] 07-01-2023 Consult note Associated Order (s): [...] syndrome Cirrhosis (HCC) Dehydration 12/22/22-12/26/22 admitted to [facility] Depression Diabetes mellitus (HCC) Gout Hepatitis C Hypertension Hyponatremia Hypothyroidism 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 prescription opiate use Nausea and vomiting 12/22/22-12/26/22 admitted at [facility] Pain management Sleep apnea noncompliant with device [...] min Stress: No Stress Concern Present (04/03/2023) [place] [employer] - Occupational Stress Questionnaire [...] any questions or concerns. Ophelia Ramos APRN, CLOTHESPIN MACHINE OPERATOR [facility], [facility] [phone] office Associated attestation - Kennedi Pérez MD - 07/01/2023 3:34 PM EDT Seen and examined. Agree with above A and p. Hyponatremia responding to volume. Borderline rapid overcorrection of Na, hold IVF. Periodic Na checks throughout the rest of the day to trend Na. Alcohol cessation counseling. [facility] 07-01-2023 History and physical note Department [...] himself. He apparently signed out AMA from [facility] and then started drinking again. He states they wouldn't give him phenobarb there his workup today shows a sodium of 119 he is being admitted for further treatment Past Medical History: Past Medical History: Diagnosis Date Acid reflux Alcoholism (CMS/HCC) (HCC) Anxiety Back pain Chronic pain syndrome Cirrhosis (HCC) Dehydration 12/22/22-12/26/22 admitted to [facility] Depression Diabetes mellitus (HCC) Gout Hepatitis C Hypertension Hyponatremia Hypothyroidism 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 prescription opiate use Nausea and vomiting 12/22/22-12/26/22 admitted at [facility] Pain management Sleep apnea noncompliant with device [...] min Stress: No Stress Concern Present (04/03/2023) [place] [employer] - Occupational Stress Questionnaire [...] KACIE BENZ DO 07/01/23 9:04 AM [facility] 07-01-2023 History and physical note Department [...] himself. He apparently signed out AMA from [facility] and then started drinking again. He states they wouldn't give him phenobarb there his workup today shows a sodium of 119 he is being admitted for further treatment Past Medical History: Past Medical History: Diagnosis Date Acid reflux Alcoholism (CMS/HCC) (HCC) Anxiety Back pain Chronic pain syndrome Cirrhosis (HCC) Dehydration 12/22/22-12/26/22 admitted to [facility] Depression Diabetes mellitus (HCC) Gout Hepatitis C Hypertension Hyponatremia Hypothyroidism 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 prescription opiate use Nausea and vomiting 12/22/22-12/26/22 admitted at [facility] Pain management Sleep apnea noncompliant with device [...] min Stress: No Stress Concern Present (04/03/2023) [place] [employer] - Occupational Stress Questionnaire [...] 9:04 AM documented in this encounter [facility] 06-30-2023 Note NOTE: This result is for medical treatment only. Analysis performed using non-forensic procedures. [facility] 06-30-2023 Emergency department Note Pt to CT Alea Okeefe RN 06/30/231747 [facility] 06-30-2023 Emergency department Note Pt to [...] syndrome Cirrhosis (HCC) Dehydration 12/22/22-12/26/22 admitted to [facility] Depression Diabetes mellitus (HCC) Gout Hepatitis C Hypertension Hyponatremia Hypothyroidism assisted prescription opiate use Nausea and vomiting 12/22/22-12/26/22 admitted at [facility] Pain management Sleep apnea noncompliant with device [...] min Stress: No Stress Concern Present (04/03/2023) [place] [employer] - Occupational Stress Questionnaire [...] with increasing falls. Was recently sent to group home where he left on his own. Pt admits to drinking a case of beer daily. States he is currently drunk. Pt has generalized bruising to whole body from previous falls. Visitor with pt states pt hit his head last night with fall, no LOC. Not on blood thinners. documented in this encounter [facility] 06-30-2023 Emergency department Triage note Pt presents with increasing falls. Was recently sent to group home where he left on his own. Pt admits to drinking a case of beer daily. States he is currently drunk. Pt has generalized bruising to whole body from previous falls. Visitor with pt states pt hit his head last night with fall, no LOC. Not on blood thinners. [facility] 06-30-2023 Physician Emergency department Note EMERGENCY [...] syndrome Cirrhosis (HCC) Dehydration 12/22/22-12/26/22 admitted to [facility] Depression Diabetes mellitus (HCC) Gout Hepatitis C Hypertension Hyponatremia Hypothyroidism 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 prescription opiate use Nausea and vomiting 12/22/22-12/26/22 admitted at [facility] Pain management Sleep apnea noncompliant with device [...] min Stress: No Stress Concern Present (04/03/2023) [place] [employer] - Occupational Stress Questionnaire [...] [facility] (Per Emergency Physician): Interpretation per [...] Emergency Medicine Provider Steve Whitley MD 06/30/23 1732 Steve Whitley MD 06/30/23 1900 [facility] 05-26-2023 Telephone encounter Note S: Patient's called to cancel appointment. B: Onset of symptoms/concern 05/26/2023 at 08;00 A: Pt has no transportation to appointment. R: Please call pt back at [phone] to reschedule. Appointment cancelled. Reason for Disposition [...] Protocols used: Information Only Call - No [id number] [facility] 05-26-2023 Miscellaneous Notes S: Patient's called to cancel appointment. B: Onset of symptoms/concern 05/26/2023 at 08;00 A: Pt has no transportation to appointment. R: Please call pt back at [phone] to reschedule. Appointment cancelled. Reason for Disposition [...] Protocols used: Information Only Call - No [id number] documented in this encounter [facility] 04-15-2023 History of Present illness Narrative [...] min Stress: No Stress Concern Present (04/03/2023) [place] [employer] - Occupational Stress Questionnaire [...] syndrome Cirrhosis (HCC) Dehydration 12/22/22-12/26/22 admitted to [facility] Depression Diabetes mellitus (HCC) Gout Hepatitis C Hypertension Hyponatremia Hypothyroidism 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 prescription opiate use Nausea and vomiting 12/22/22-12/26/22 admitted at [facility] Pain management Sleep apnea noncompliant with device [...] dependency program which is offered via the [facility]. FLAVIO SHERMAN MD Addiction Medicine 04/15/2023 at 12:03 PM -35- minutes were spent reviewing the patient's records, evaluating the patient, entering orders, coordinating care with the treatment team, and creating a progress note. Narrative portions of the note are written utilizing [employer] software. While every effort is made to dictate clearly and proofread, errors in the dictation may still occur. If there are any questions regarding the dictation please do not hesitate to contact the author. [facility] Progress Note Subjective/ 63 [...] if possible 2/2 hypomagnesemia D/w Dr Koenig [facility] No further changes Ok for discharge planning from renal standpoint, outpatient BMP ordered and needs close follow up with nephrology in 1 week Will follow. Thank you for the consult and the opportunity to participate in the care of this patient. Please do not hesitate to call with any questions or concerns. Ophelia Ramos APRN, CLOTHESPIN MACHINE OPERATOR [facility], [facility] [phone] office [facility] Progress Note Subjective/ 63 y.o. year [...] any questions or concerns. Ophelia Ramos, LEAH, CLOTHESPIN MACHINE OPERATOR [facility], [facility] [phone] office Associated attestation - Kennedi Pérez MD - 04/14/2023 4:52 PM EDT I have reviewed the above assessment and plan with the STENCIL CUTTER MACHINE. I agree with above note. Hyponatremia +, worsening. Needs to eat more and have nausea controlled. NS x 500 ml today. Will not increase sodium tablets as that will worsen BP and volume status Okay to dc from renal standpoint as well as nausea will be taken care of outpatient. Complicated MDM. Images from the original note were not included. Hospitalist Progress Note 04/14/[id number]: Please secure chat me for patient care issues. [phone]: Please secure chat [facility] Hospitalist for any issues. Subjective: Admit Date: 04/09/2023 PCP: Jani Quezada Room#: [id number] A Chief complaint: poor oral intake Interval History: Poor oral intake. Nausea +, no vomiting. Afebrile. No abdominal pain. Adult diet Regular; 1200 ml @[id number]@ 24HR INTAKE/OUTPUT: Intake/Output Summary (Last 24 hours) at 04/14/2023 1136 Last data filed at 04/14/2023 1100 Gross per 24 hour Intake 520 ml Output 50 ml Net 470 ml Past Medical History: Past Medical History: Diagnosis Date Acid reflux Alcoholism (CMS/HCC) (HCC) Anxiety Back pain Chronic pain syndrome Cirrhosis (HCC) Dehydration 12/22/22-12/26/22 admitted to [facility] Depression Diabetes mellitus (HCC) Gout Hepatitis C Hypertension Hyponatremia Hypothyroidism 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 prescription opiate use Nausea and vomiting 12/22/22-12/26/22 admitted at [facility] Pain management Sleep apnea noncompliant with device [...] Extended Emergency Contact Information Primary Emergency Contact: Kinsgley Carl Relation: Spouse Ced Koenig MD Division of Hospitalist Medicine [facility] PAGER: Epic chat Occupational Therapy Facility/Department: [...] (HCC), Gout, Hepatitis C, Hypertension, Hyponatremia, Hypothyroidism, 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 prescription opiate use, Nausea and vomiting, Pain management, and Sleep apnea. has a past surgical history that includes Back surgery; Laminectomy; Anderson tooth extraction; lap,cholecystectomy (historical) (N/A, 01/05/2023); and [...] base quad cane Transfer Assistance: Independent Active Single Resource Boss: No Occupation: On disability Objective Gross Assessment: [...] 9 Unique Griffin OT Physical Therapy Facility/Department: [facility] Initial Evaluation NAME: Woody Ni [...] no concerns for returning home. Pt declining [facility] PT services. Will discharge at this time [...] (HCC), Gout, Hepatitis C, Hypertension, Hyponatremia, Hypothyroidism, assisted prescription opiate use, Nausea and vomiting, Pain management, and Sleep apnea. has a past surgical history that includes Back surgery; Laminectomy; Anderson tooth extraction; lap,cholecystectomy (historical) (N/A, 01/05/2023); and [...] base quad cane Transfer Assistance: Independent Active Single Resource Boss: No Occupation: On disability Objective Observation/Palpation Posture: [...] any questions or concerns. Ophelia Ramos, LEAH, CLOTHESPIN MACHINE OPERATOR [facility], [facility] [phone] office Associated attestation - Kennedi Pérez MD - 04/13/2023 3:13 PM EDT I have reviewed the above assessment and plan with the STENCIL CUTTER MACHINE. I agree with above note. Hyponatremia, hypomagnesemia, [...] detoxification perspective. He was recently detoxified at [facility], but shortly after release from the hospital [...] min Stress: No Stress Concern Present (04/03/2023) [place] [employer] - Occupational Stress Questionnaire [...] syndrome Cirrhosis (HCC) Dehydration 12/22/22-12/26/22 admitted to [facility] Depression Diabetes mellitus (HCC) Gout Hepatitis C Hypertension Hyponatremia Hypothyroidism 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 prescription opiate use Nausea and vomiting 12/22/22-12/26/22 admitted at [facility] Pain management Sleep apnea noncompliant with device [...] virtual outpatient CD program affiliated with the [facility]. FLAVIO SHERMAN MD Addiction Medicine 04/13/2023 at 12:48 PM -35- minutes were spent reviewing the patient's records, evaluating the patient, entering orders, coordinating care with the treatment team, and creating a progress note. Narrative portions of the note are written utilizing Bizzby software. While every effort is made to dictate clearly and proofread, errors in the dictation may still occur. If there are any questions regarding the dictation please do not hesitate to contact the author. Images from the original note were not included. Hospitalist Progress Note 04/13/2023 [phone]: Please secure chat ri for patient care issues. [phone]: Please secure chat [facility] Hospitalist for any issues. Subjective: Admit Date: 04/09/2023 PCP: Jani Quezada Room#: [id number] A Chief complaint: Having nausea since last night, Zofran helping Interval History: No overnight issues. Denies chest pain, sob, abdominal pain, diarrhea, constipation, fevers, or chills. Adult diet Regular; 1200 ml @[id number]@ 24HR INTAKE/OUTPUT: Intake/Output Summary (Last 24 hours) at 04/13/2023 1217 Last data filed at 04/13/2023 1052 Gross per 24 hour Intake 540 ml Output -- Net 540 ml Past Medical History: Past Medical History: Diagnosis Date Acid reflux Alcoholism (CMS/HCC) (HCC) Anxiety Back pain Chronic pain syndrome Cirrhosis (HCC) Dehydration 12/22/22-12/26/22 admitted to [facility] Depression Diabetes mellitus (HCC) Gout Hepatitis C Hypertension Hyponatremia Hypothyroidism assisted prescription opiate use Nausea and vomiting 12/22/22-12/26/22 admitted at [facility] Pain management Sleep apnea noncompliant with device [...] effects, await PT and OT assessments with care home facility placement -am labs, replace lytes prn -increase activity -DVT prophylaxis: [] Lovenox [] Heparin [] SCDs [x] Encourage ambulation [] Already on Anticoagulation Anticipated Discharge - Date -April 14 or - Location -care home facility - Pending the following -bed availability [...] LAURA STEVENS MD, Division of Hospitalist Medicine [facility] PAGER: Epic chat [facility] [...] note were not included. Hospitalist Progress Note 04/12/[id number]: Please secure chat me for patient care issues. [phone]: Please secure chat [facility] Hospitalist for any issues. Subjective: Admit Date: 04/09/2023 PCP: Jani Quezada Room#: B2-260/[id number] A Chief complaint: Hyponatremia and diarrhea improving Interval History: No overnight issues. Denies chest pain, sob, nausea, vomiting, constipation, fevers, or chills. Adult diet Regular; 1200 ml @[id number]@ 24HR INTAKE/OUTPUT: Intake/Output Summary (Last 24 hours) at 04/12/2023 1217 Last data filed at 04/11/2023 1232 Gross per 24 hour Intake 100 ml Output -- Net 100 ml Past Medical History: Past Medical History: Diagnosis Date Acid reflux Alcoholism (CMS/HCC) (HCC) Anxiety Back pain Chronic pain syndrome Cirrhosis (HCC) Dehydration 12/22/22-12/26/22 admitted to [facility] Depression Diabetes mellitus (HCC) Gout Hepatitis C Hypertension Hyponatremia Hypothyroidism assisted prescription opiate use Nausea and vomiting 12/22/22-12/26/22 admitted at [facility] Pain management Sleep apnea noncompliant with device [...] LAURA STEVENS MD, Division of Hospitalist Medicine [facility] PAGER: Epic chat [facility] Progress Note Subjective/ 63 [...] note were not included. Hospitalist Progress Note 04/11/[id number]: Please page me ([phone]) for patient care issues. [phone]: Please page [facility] Hospitalist for any issues. Subjective: Admit Date: [...] or chills. Adult diet Regular; 1200 ml @[id number]@ 24HR INTAKE/OUTPUT: Intake/Output Summary (Last 24 hours) at 04/11/2023 1308 Last data filed at 04/11/2023 1232 Gross per 24 hour Intake 1287 ml Output -- Net 1287 ml Past Medical History: Past Medical History: Diagnosis Date Acid reflux Alcoholism (CMS/HCC) (HCC) Anxiety Back pain Chronic pain syndrome Cirrhosis (HCC) Dehydration 12/22/22-12/26/22 admitted to [facility] Depression Diabetes mellitus (HCC) Gout Hepatitis C Hypertension Hyponatremia Hypothyroidism assisted prescription opiate use Nausea and vomiting 12/22/22-12/26/22 admitted at [facility] Pain management Sleep apnea noncompliant with device [...] Started on thiamine/folate and PRN ativan per [facility] protocol. Addiction med consulted/following. He had made a commitment to follow-up with [facility] virtual program. Hopefully he will return [...] MD Division of Hospitalist Medicine Inpatient Medical Services/[facility] PAGER: Epic chat documented in this encounter [facility] 04-15-2023 Note Formatting of this n [...] of Stay (Days): 5 GMLOS: 2.6 [facility] 04-15-2023 Note Formatting of this n [...] Length of Stay (Days): 5 GMLOS: 2.6 [facility] 04-15-2023 Miscellaneous Notes Images from the original [...] on HCPOA and updated that will inform social media campaign manager on Thursday that he would like to complete. Hcpoa paperwork. . Care Managment Initial Assessment Date: 04/10/2023 Patient Name: Woody Ni : 1960 Patient Information Source of Information: Patient Cognition/Language: WFL - Within Functional Limits Permission given to speak with patient security systems sales representative/caregiver as indicated: Yes (Kingsley Carl (Spouse) [phone]) Confirmation of Payer with patient/family: Yes Payer Name: Medicare A&B,, 2 Medicaid [place]: Yes (does not follow with [facility]) Confirmation [...] Coverage: Yes Pharmacy Used: [facility] in [place] Medication Management: Independent Transportation/Shopping: Assistance Provider Transportation/Shopping [...] Scott RN documented in this encounter [facility] 04-15-2023 Hospital course Narrative Discharge Summary [...] consulted , detoxed - follow up with [facility] virtual program. Alcoholic liver disease /alcoholic cirrhosis [...] Your Medications These medications were sent to [facility] [address] [place] [address] Hours: Thursday to Thursday 10 am to 6 pm famotidine 20 MG tablet folic acid 1 MG tablet Lidocaine 4 % patch ondansetron ODT 4 MG disintegrating tablet thiamine 100 MG tablet DIET: Adult diet Regular; 1200 ml ACTIVITY: No restriction. COMPLEXITY OF FOLLOW UP: [x] Moderate Complexity: follow up within 7-14 calendar days (67461) [] Severe Complexity: follow up within 7 calendar days (33710) FOLLOW UP TESTING, PENDING RESULTS OR REFERRALS AT TRANSITIONAL CARE VISIT: [x] Yes [] No PENDING STUDIES: DISPOSITION: Home FACILITY/HOME CARE AGENCY NAME: Follow up with Jani Quezada [address] [facility] [address] [facility] [address] Follow up in 1 week(s) cbc/CMP on follow up Ophelia Ramos, SPREADING MACHINE OPERATOR - CLOTHESPIN MACHINE OPERATOR [address] [facility] [address] Follow up in 1 [...] 11:35 AM documented in this encounter [facility] 04-15-2023 Hospital Discharge instructions Ced Koenig [...] (72.6 kg) Mental Status: {ISAIAS Patient Mental Status:09224} IV Access: {ISAIAS IV Access:59924} Nursing Mobility/ADLs: Walking {GORDON ADL:41210::"Independent"} Transfer {GORDON ADL:13750::"Independent"} Bathing {GORDON ADL:21169::"Independent"} Dressing {GRODON ADL:18286::"Independent"} Toileting {GORDON ADL:14330::"Independent"} Feeding {GORDON ADL:85821::"Independent"} Dental Chairside Assistant {GORDON ADL:70081::"Independent"} Med Delivery {yes/no:21969} Wound Care Documentation and Therapy: Wound/Incision 01/05/23 Incision Abdomen - Upper Quadrant (Active) Number of days: 99 Elimination: Continence: Bowel: {yes/no:06983} Bladder: {yes/no:44458} Urinary Catheter: {ISAIAS Urinary Catheter:43555} Colostomy/Ileostomy/Ileal Conduit: {YES / NO:} Date of Last BM: Intake/Output Summary (Last 24 hours) at 04/15/2023 0932 Last data filed at 04/14/2023 1100 Gross per 24 hour Intake 320 ml Output -- Net 320 ml I/O last 3 completed shifts: In: 420 (5.8 mL/kg) [P.O.:320; I.V.:100 (1.4 mL/kg)] Out: 50 (0.7 mL/kg) [Urine:50 (0 mL/kg/hr)] Weight: 72.6 kg Safety Concerns: {ISAIAS Safety Concerns:11902} Impairments/Disabilities: {ISAIAS Impairments/Disabilities:63214} Nutrition Therapy: Current Nutrition Therapy: {ISAIAS Diet List:90898} Routes of Feeding: {routes of feedin} Liquids: {liquid consistency:33704} Daily Fluid Restriction: {daily fluid restriction:64595} Last Modified Barium Swallow with Video (Video Swallowing Test): {done not done:73350} Treatments at the Time of Hospital Discharge: Respiratory Treatments: Oxygen Therapy: {Therapy; copd oxygen:20493} Ventilator: {ISAIAS Ventilator:35829} Rehab Therapies: {GEN THERAPY DISCIPLINE SCAL:9723668} Weight Bearing Status/Restrictions: {POD WEIGHT BEARIN} Other Medical Equipment (for information only, NOT a DME order): {Assistive Devices DME:83629} Other Treatments: Patient's personal belongings (please select all that are sent with patient): {ISAIAS Patient Belongings:69172} RN SIGNATURE: {E-signature:74766} CASE MANAGEMENT/SOCIAL WORK SECTION Inpatient Status Date: Readmission Risk Assessment Score: @READMISSIONRISKDETAILS@ Discharging to Facility/ Agency Name: Address: Phone: Fax: Dialysis Facility (if applicable) Name: Address: Dialysis Schedule: Phone: Fax: Economic Development Coordinator/Gray Mixing Operator signature: {E-signature:18050} PHYSICIAN SECTION Prognosis: {Rehab Prognosis:64373} Condition at Discharge: {Patient Condition:70988} Rehab Potential (if transferring to Rehab): {Rehab Prognosis:39861} Recommended Labs or Other Treatments After Discharge: Physician Certification: I certify the above information and transfer of Woody Ni is necessary for the continuing treatment of the diagnosis listed and that he requires {ISAIAS Level of Care:43552} for {greater less than:84997} 30 days. Update Admission H&P: {ISAIAS Changes in H&P:01491} PHYSICIAN SIGNATURE: {E-signature:59693} The following attachments cannot be sent through Care Everywhere.Hyponatremia (Hungarian)documented in this encounter [facility] 04-14-2023 Note Formatting of this n [...] of Stay (Days): 4 GMLOS: 2.6 [facility] 04-14-2023 Note Formatting of this n [...] Length of Stay (Days): 4 GMLOS: 2.6 [facility] 04-13-2023 Plan of care note The patient [...] include continue current care plan. T [facility] 04-13-2023 Note Formatting of this n ote might be different from the original. Patient may be discharged in a.m. to home, once electrolytes stabilize and nausea controlled, did well with PT and OT. [facility] 04-13-2023 Note Formatting of this n ote might be different from the original. Patient may be discharged in a.m. to home, once electrolytes stabilize and nausea controlled, did well with PT and OT. [facility] 04-13-2023 Note Formatting of this n [...] Length of Stay (Days): 3 GMLOS: 2.6 [facility] 04-13-2023 Note Formatting of this n [...] Length of Stay (Days): 3 GMLOS: 2.6 [email or web address] 04-13-2023 Note Formatting of this n ote might be different from the original. Met with patient and his significant other this afternoon to complete HCPOA paperwork. Copies given to patient and his girfriend. Copy placed in the chart. [facility] [email or web address] 04-13-2023 Note Formatting of this n ote might be different from the original. Met with patient and his significant other this afternoon to complete HCPOA paperwork. Copies given to patient and his girfriend. Copy placed in the chart. [facility] [email or web address] 04-13-2023 Note Formatting of this n ote [...] print the paperwork and have it ready. [facility] 04-13-2023 Note Formatting of this n [...] print the paperwork and have it ready. [facility] 04-11-2023 Note Formatting of this n ote might be different from the original. Provided patient with informational booklet on HCPOA and updated that will inform social media campaign manager on Thursday that he would like to complete. Hcpoa paperwork. . [facility] 04-11-2023 Note Formatting of this n ote might be different from the original. Provided patient with informational booklet on HCPOA and updated that will inform social media campaign manager on Thursday that he would like to complete. Hcpoa paperwork. . [facility] 04-11-2023 Consult note Associated Order (s): IP [...] (temporalis) Fluid Accumulation: No significant fluid accumulation Indigo Mixer Strength: Measurable reduction in neurology tech strength Nutrition Assessment: 63 year old man with PMHX: anxiety, chronic pain syndrome, EtOH abuse (multiple admits over the past six months as result), liver cirrhosis, HTN, DMII(A1C=4.7% on 04/02/23); significant surgical history: S/p Laparoscopic cholecystectomy with liver biopsy (01/05/23). Most recently admitted to [facility] 04/02-04/07/23 requesting dextox, noted SHE on admit: 0.352. Currently presents to [facility] with inability to tolerate oral intake, nausea, emesis, and watery stooling. + endorses achy pain throughout his abdomen (which appears to be a chronic issue); of note opioids ceased by pain management ~10 days SKI INSTRUCTOR due to on-going alcohol abuse. On admit, reports drinking two beers SKI INSTRUCTOR. Significant labs on admit: Na+(124), AST(103), ALT(58), [...] 100% ensure shake. Poor PO since leaving [facility] less than one week ago: I didn t eat when I was at [place], and I didn t eat at home [...] On: Kcal/kg Weight Used for Energy Requirements: [employer] Weight for Energy Calculation (kg): 75 kg Total Energy Requirements (kcals/day): 9648-2333 (25-30 kcal/kg IBW) Weight Used for Protein Requirements: [employer] Weight in Kg Used for Protein Requirements: 75 kg Estimated Total Protein (g/day): 75-113 (1.0-1.5 g protien/kg IBW) Estimated Daily Total Fluid (ml/day): per MD Nutrition Related Findings: Pranav score=18, +multiple scratches and scabs. No edema noted. +I/O balance. Meds and labs reviewed. +Severe PCM on admit to [facility] earlier in the month Wound Type: None [...] 177# 01/28/23) % Weight Change (Calculated): -6.1 [employer] Body Weight (lbs) (Calculated): 166 lbs [employer] Body Weight (Kg) (Calculated): 75 kg % [employer] Body Weight (Calculated): 104.1 % BMI (kg/m2) [...] Nutrition Supplement Mona Gardiner RDN, LDN, Contact: *[phone] [facility] 04-11-2023 Consult note Associated Order (s): IP [...] (temporalis) Fluid Accumulation: No significant fluid accumulation Indigo Mixer Strength: Measurable reduction in neurology tech strength Nutrition Assessment: 63 year old man with PMHX: anxiety, chronic pain syndrome, EtOH abuse (multiple admits over the past six months as result), liver cirrhosis, HTN, DMII(A1C=4.7% on 04/02/23); significant surgical history: S/p Laparoscopic cholecystectomy with liver biopsy (01/05/23). Most recently admitted to [facility] 04/02-04/07/23 requesting dextox, noted SHE on admit: 0.352. Currently presents to [facility] with inability to tolerate oral intake, nausea, emesis, and watery stooling. + endorses achy pain throughout his abdomen (which appears to be a chronic issue); of note opioids ceased by pain management ~10 days SKI INSTRUCTOR due to on-going alcohol abuse. On admit, reports drinking two beers SKI INSTRUCTOR. Significant labs on admit: Na+(124), AST(103), ALT(58), [...] 100% ensure shake. Poor PO since leaving [facility] less than one week ago: I didn t eat when I was at [place], and I didn t eat at home [...] On: Kcal/kg Weight Used for Energy Requirements: [employer] Weight for Energy Calculation (kg): 75 kg Total Energy Requirements (kcals/day): 5352-1846 (25-30 kcal/kg IBW) Weight Used for Protein Requirements: [employer] Weight in Kg Used for Protein Requirements: 75 kg Estimated Total Protein (g/day): 75-113 (1.0-1.5 g protien/kg IBW) Estimated Daily Total Fluid (ml/day): per MD Nutrition Related Findings: Pranav score=18, +multiple scratches and scabs. No edema noted. +I/O balance. Meds and labs reviewed. +Severe PCM on admit to [facility] earlier in the month Wound Type: None [...] 177# 01/28/23) % Weight Change (Calculated): -6.1 [employer] Body Weight (lbs) (Calculated): 166 lbs [employer] Body Weight (Kg) (Calculated): 75 kg % [employer] Body Weight (Calculated): 104.1 % BMI (kg/m2) [...] Nutrition Supplement Mona Gardiner RDN, LDN, Contact: [phone] Associated Order(s): IP CONSULT TO ADDICTION MEDICINE Images from the original note were not included. Addiction Medicine Patient: Woody Ni Admit Date: 04/09/2023 Primary Care Physician: Jani Quezada History of Present Illness The patient is a 63-year-old male presenting to [facility] for stabilization of alcohol dependence/withdrawal. Patient is known to chemical dependency services, and was recently detoxified at [facility] from April 03 to April [...] min Stress: No Stress Concern Present (04/03/2023) [place] of Occupational Health - Occupational Stress Questionnaire [...] syndrome Cirrhosis (HCC) Dehydration 12/22/22-12/26/22 admitted to [facility] Depression Diabetes mellitus (HCC) Gout Hepatitis C Hypertension Hyponatremia Hypothyroidism 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 prescription opiate use Nausea and vomiting 12/22/22-12/26/22 admitted at [facility] Pain management Sleep apnea noncompliant with device [...] 368 ms QTC Interval 485 ms P [place] 106 degrees QRS [place] -40 degrees T Wave [place] 7 degrees [place] Interval 158 ms Comprehensive metabolic panel Collection [...] had made a commitment to follow-up with [facility]. Hopefully he will return to this program after he is released from the hospital. We will follow FLAVIO SHERMAN MD Addiction Medicine 04/10/2023 at 1:49 PM -55- minutes were spent reviewing the patient's records, evaluating the patient, entering orders, coordinating care with the treatment team, and creating a progress note. Narrative portions of the note are written utilizing Bizzby software. While every effort is made to [...] does not advance care planning documents in [facility] - Kingsley Carl (significant other x 25 years): [phone] - pts goal is to abstain from [...] [facility], [address] --> [phone] - opiates prescribed since 2016 by above [...] liver cirrhosis, HTN, hyponatremia, chronic pain with housing counselor prescription opiate use, anxiety, depression, DM who presented to [facility] due to abdominal pain, N/V and watery [...] syndrome Cirrhosis (HCC) Dehydration 12/22/22-12/26/22 admitted to [facility] Depression Diabetes mellitus (HCC) Gout Hepatitis C Hypertension Hyponatremia Hypothyroidism assisted prescription opiate use Nausea and vomiting 12/22/22-12/26/22 admitted at [facility] Pain management Sleep apnea noncompliant with device [...] confusion. ROS: See palliative care ROS/ESAS below; [place] Symptom Assessment Score [place] Score Pain Score "High" Tiredness Score 5 Nausea Score 0 Depression Score 0 Anxiety Score 0 Drowsiness Score 0 Anorexia Score (0= eating well, 10= not eating) 0 Wellbeing Score (10= worst sense of well-being) 5 Constipation 0 Dyspnea Score (0= no shortness of breath) 0 Assessed by: patient and provider. 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 They currently have no uncontrolled symptoms and have established goals of care and we have signed off of their case. The patient has established follow-up with chronic pain management. Associated Order(s): IP CONSULT TO NEPHROLOGY [facility] Consult Note Reason for [...] the last 10 years (of note: in [facility], he followed with surgery and had cholecystectomy/liver biopsy in december of this year - biopsy consistent with liver cirrhosis). Denies issues with UOP. No recent falls. No use of thiazides. Daily smoker +ve. Past Medical History: Past Medical History: Diagnosis Date Acid reflux Alcoholism (CMS/HCC) (HCC) Anxiety Back pain Chronic pain syndrome Cirrhosis (HCC) Dehydration 12/22/22-12/26/22 admitted to [facility] Depression Diabetes mellitus (HCC) Gout Hepatitis C Hypertension Hyponatremia Hypothyroidism 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 prescription opiate use Nausea and vomiting 12/22/22-12/26/22 admitted at [facility] Pain management Sleep apnea noncompliant with device [...] min Stress: No Stress Concern Present (04/03/2023) [place] [employer] [employer] - Occupational Stress Questionnaire [...] any questions or concerns. Ophelia Ramos APRN, CLOTHESPIN MACHINE OPERATOR [facility], [facility] [phone] office Associated attestation - Kennedi Pérez MD - 04/10/2023 6:35 PM EDT Seen and examined. Agree with above A and p. Patient established with me outpatient. H/o DENNYS 12/2022 when we saw him, recovered from DENNYS well. Here with hyponatremia, better with IVF. FR and higher protein intake for now. Will follow. documented in this encounter [facility] 04-10-2023 Consult note Associated Order (s): IP CONSULT TO ADDICTION MEDICINE Images from the original note were not included. Addiction Medicine Patient: Woody Ni Admit Date: 04/09/2023 Primary Care Physician: Jani Quezada History of Present Illness The patient is a 63-year-old male presenting to [facility] for stabilization of alcohol dependence/withdrawal. Patient is known to chemical dependency services, and was recently detoxified at [facility] from April 03 to April [...] min Stress: No Stress Concern Present (04/03/2023) [place] [employer] [employer] - Occupational Stress Questionnaire [...] syndrome Cirrhosis (HCC) Dehydration 12/22/22-12/26/22 admitted to [facility] Depression Diabetes mellitus (HCC) Gout Hepatitis C Hypertension Hyponatremia Hypothyroidism 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 prescription opiate use Nausea and vomiting 12/22/22-12/26/22 admitted at [facility] Pain management Sleep apnea noncompliant with device [...] 368 ms QTC Interval 485 ms P [place] 106 degrees QRS [place] -40 degrees T Wave [place] 7 degrees [place] Interval 158 ms Comprehensive metabolic panel Collection [...] had made a commitment to follow-up with [facility] virtual program. Hopefully he will return to this program after he is released from the hospital. We will follow FLAVIO SHERMAN MD Addiction Medicine 04/10/2023 at 1:49 PM -55- minutes were spent reviewing the patient's records, evaluating the patient, entering orders, coordinating care with the treatment team, and creating a progress note. Narrative portions of the note are written utilizing Bizzby software. While every effort is made to dictate clearly and proofread, errors in the dictation may still occur. If there are any questions regarding the dictation please do not hesitate to contact the author. [facility] 04-10-2023 Consult note Associated Order (s): IP CONSULT TO PALLIATIVE CARE Images from the original note were not included. Palliative Care Initial Consult Chief Complaint: Woody Ni is a 63 y.o. male with chief complaint of hyponatremia, abdominal pain Palliative Care provider will follow-up on 04/13/23. Assessment/Plan Goals of Care - FULL - pt does not advance care planning documents in [facility] - Kingsley Carl (significant other x 25 years): [phone] - pts goal is to abstain from [...] [facility], [address] --> [phone] - opiates prescribed since 2016 by above [...] liver cirrhosis, HTN, hyponatremia, chronic pain with housing counselor prescription opiate use, anxiety, depression, DM who presented to [facility] due to abdominal pain, N/V and watery [...] syndrome Cirrhosis (HCC) Dehydration 12/22/22-12/26/22 admitted to [facility] Depression Diabetes mellitus (HCC) Gout Hepatitis C Hypertension Hyponatremia Hypothyroidism 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 prescription opiate use Nausea and vomiting 12/22/22-12/26/22 admitted at [facility] Pain management Sleep apnea noncompliant with device [...] confusion. ROS: See palliative care ROS/ESAS below; Durkee Symptom Assessment Score Durkee Score Pain Score "High" Tiredness Score 5 Nausea Score 0 Depression Score 0 Anxiety Score 0 Drowsiness Score 0 Anorexia Score (0= eating well, 10= not eating) 0 Wellbeing Score (10= worst sense of well-being) 5 Constipation 0 Dyspnea Score (0= no shortness of breath) 0 Assessed by: patient and provider. 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 They currently have no uncontrolled symptoms and have established goals of care and we have signed off of their case. The patient has established follow-up with chronic pain management. [facility] Work Phone: 04-10-2023 Consult note Associated Order (s): IP CONSULT TO NEPHROLOGY [facility] Consult Note Reason for [...] the last 10 years (of note: in [facility], he followed with surgery and had cholecystectomy/liver biopsy in december of this year - biopsy consistent with liver cirrhosis). Denies issues with UOP. No recent falls. No use of thiazides. Daily smoker +ve. Past Medical History: Past Medical History: Diagnosis Date Acid reflux Alcoholism (CMS/HCC) (HCC) Anxiety Back pain Chronic pain syndrome Cirrhosis (HCC) Dehydration 12/22/22-12/26/22 admitted to [facility] Depression Diabetes mellitus (HCC) Gout Hepatitis C Hypertension Hyponatremia Hypothyroidism assisted prescription opiate use Nausea and vomiting 12/22/22-12/26/22 admitted at [facility] Pain management Sleep apnea noncompliant with device [...] min Stress: No Stress Concern Present (04/03/2023) [place] [employer] - Occupational Stress Questionnaire [...] any questions or concerns. Ophelia Ramos APRN, CLOTHESPIN MACHINE OPERATOR [facility], [facility] [phone] office Associated attestation - Kennedi Pérez MD - 04/10/2023 6:35 PM EDT Seen and examined. Agree with above A and p. Patient established with me outpatient. H/o DENNYS 12/2022 when we saw him, recovered from DENNYS well. Here with hyponatremia, better with IVF. FR and higher protein intake for now. Will follow. [email or web address] 04-10-2023 Note Formatting of this n ote might be different from the original. Care Managment Initial Assessment Date: 04/10/2023 Patient Name: Woody Ni : 1960 Patient Information Source of Information: Patient Cognition/Language: WFL - Within Functional Limits Permission given to speak with patient security systems sales representative/caregiver as indicated: Yes (Kingsley Carl (Spouse) [phone]) Confirmation of Payer with patient/family: Yes Payer [...] Coverage: Yes Pharmacy Used: [facility] in [place] Medication Management: Independent Transportation/Shopping: Assistance Provider Transportation/Shopping [...] will continue to follow. Monica Scott RN [facility] 04-10-2023 Note Formatting of this n ote might be different from the original. Care Managment Initial Assessment Date: 04/10/2023 Patient Name: Woody Ni : 1960 Patient Information Source of Information: Patient Cognition/Language: WFL - Within Functional Limits Permission given to speak with patient security systems sales representative/caregiver as indicated: Yes (Kingsley Carl (Spouse) [phone]) Confirmation of Payer with patient/family: Yes Payer Name: Medicare A&B,, 2 Medicaid [place]: Yes (does not follow with [facility]) Confirmation [...] Coverage: Yes Pharmacy Used: [facility] in [place] Medication Management: Independent Transportation/Shopping: Assistance Provider Transportation/Shopping [...] will continue to follow. Monica Scott RN [facility] 04-10-2023 History and physical note Attending [...] the last 10 years (of note: in [facility], he followed with surgery and had cholecystectomy/liver [...] syndrome Cirrhosis (HCC) Dehydration 12/22/22-12/26/22 admitted to [facility] Depression Diabetes mellitus (HCC) Gout Hepatitis C Hypertension Hyponatremia Hypothyroidism assisted prescription opiate use Nausea and vomiting 12/22/22-12/26/22 admitted at [facility] Pain management Sleep apnea noncompliant with device [...] min Stress: No Stress Concern Present (04/03/2023) [place] [employer] - Occupational Stress Questionnaire [...] beer. Start thiamine/folate and PRN ativan per [facility] protocol. Consult to addiction med. # [...] diet, Start thiamine/folate and PRN ativan per [facility] protocol. Consult to addiction med. Check [...] by @MEMDNR@ on @TDNR@ at @NOWNR@ [facility] 04-10-2023 History and physical note Attending [...] the last 10 years (of note: in [facility], he followed with surgery and had cholecystectomy/liver [...] syndrome Cirrhosis (HCC) Dehydration 12/22/22-12/26/22 admitted to [facility] Depression Diabetes mellitus (HCC) Gout Hepatitis C Hypertension Hyponatremia Hypothyroidism assisted prescription opiate use Nausea and vomiting 12/22/22-12/26/22 admitted at [facility] Pain management Sleep apnea noncompliant with device [...] min Stress: No Stress Concern Present (04/03/2023) [place] [employer] [employer] - Occupational Stress Questionnaire [...] beer. Start thiamine/folate and PRN ativan per [facility] protocol. Consult to addiction med. # [...] diet, Start thiamine/folate and PRN ativan per [facility] protocol. Consult to addiction med. Check [...] at @NOWNR@ documented in this encounter [facility] 04-10-2023 Emergency department Note Report to [facility] staff. Jere Dooley RN 04/10/23701 [facility] 04-10-2023 Emergency department Note Report to [facility] staff. Jere Dooley RN 04/10/23701 Jere Dooley RN 04/10/23 0122 Jere Dooley RN 04/10/23 0134 [facility] called for transport to [facility]. ETA of 3 hours. Jere Dooley RN 04/10/23 0044 Pt ambulatory to and from restroom independently. Pt had BM loose stool; specimen collected and sent to lab. Pt again refers to this RN as "babydoll" then states the police and fire dispatcher is "going to come in here and [...] doll" to this RN. Since arrival at [facility] pt has continually been calling staff "baby doll" and other endearing terms and acting inappropriately toward staff. Pt does appear intoxicated as well. community resource officer was notified and did speak with [...] Debora Watts RN 04/09/232056 Emergency Department Encounter [facility] ED Patient: Woody Ni : 1960 [...] I discussed with admitting Dr. Barker at [facility], accepts patient for telemetry admission, patient agreeable, stable for admission at this time. DIAGNOSIS: Hyponatremia, alcohol intoxication, transaminitis DISPOSITION: Admission at [facility] PRESCRIPTIONS: New Prescriptions No medications on file [...] for clarification. Richie Acosta MD Acute Care [facility] Richie Acosta MD 04/10/23 0240 Patient is here for abdominal pain. He was in the hospital recently for detox and left early for a birthday republican. He states he has not ate in [...] and he was supposed to be at [facility]. Patient uncooperative with intake and would not answer questions directly. Call light within reach and blanket given for comfort. documented in this encounter [facility] 04-10-2023 Emergency department Note Jere Dooley RN 04/10/23 0122 Jere Dooley RN 04/10/23 0134 [facility] 04-10-2023 Emergency department Note [facility] called for transport to [facility]. ETA of 3 hours. Jere Dooley RN 04/10/23 0044 [facility] 04-09-2023 Emergency department Note Pt ambulatory to and from restroom independently. Pt had BM loose stool; specimen collected and sent to lab. Pt again refers to this RN as "chung" then states the police and fire dispatcher is "going to come in here and beat me up" for saying that. Debora Watts RN 04/09/232221 [facility] 04-09-2023 Note NOTE: This result is for medical treatment only. Analysis performed using non-forensic procedures. [facility] 04-09-2023 Emergency department Note This RN [...] doll" to this RN. Since arrival at [facility] pt has continually been calling staff "baby doll" and other endearing terms and acting inappropriately toward staff. Pt does appear intoxicated as well. community resource officer was notified and did speak with [...] RN 04/09/232052 Debora Watts RN 04/09/232056 [facility] 04-09-2023 Emergency department Triage note Patient is here for abdominal pain. He was in the hospital recently for detox and left early for a birthday republican. He states he has not ate in [...] and he was supposed to be at [facility]. Patient uncooperative with intake and would not answer questions directly. Call light within reach and blanket given for comfort. [facility] 04-09-2023 Physician Emergency department Note Emergency Department Encounter [facility] ED Patient: Woody Ni : 1960 [...] I discussed with admitting Dr. Barker at [facility], accepts patient for telemetry admission, patient agreeable, stable for admission at this time. DIAGNOSIS: Hyponatremia, alcohol intoxication, transaminitis DISPOSITION: Admission at [facility] PRESCRIPTIONS: New Prescriptions No medications on file [...] provider for clarification. Richie Acosta MD Acute [facility] Richie Acosta MD 04/10/23 0240 [facility] 04-09-2023 Telephone encounter Note Called pt and left a VM requesting a callback to get him scheduled for a GI follow up. Callback number provided. [facility] 04-09-2023 Miscellaneous Notes Called pt and [...] chronic diarrhea documented in this encounter [facility] 04-09-2023 Telephone encounter Note Pt says he saw Dr Valdes in the hosp and was told to contact the office so he could be seen hernando for a follow up. [facility] 04-07-2023 Nurse Note Patient discharge AVS reviewed with patient. Signature obtained. Patient educated on possible overdose due to lower tolerance. Patient understands. Patient denied having any SI/HI/AVH and any pain. 1245- Patient wheeled off unit via wheelchair by transport. [facility] 04-07-2023 Nurse Note Patient discharge AVS [...] for safety. documented in this encounter [facility] 04-07-2023 Note Formatting of this n ote might be different from the original. CORPORATE TRUST OFFICER saw patient to discuss aftercare plans and treatment post discharge. Patient was reminded about virtual intake appointment with [facility] program on 04/08/2023 at 1:30 PM. CORPORATE TRUST OFFICER explained that agency has sent a link via text messages on his phone. Patient denied current SI/HI/AVH. Patient reported that their son would be picking them up from the hospital and taking them back home. Patient denied needing anything further from CORPORATE TRUST OFFICER at the time. CORPORATE TRUST OFFICER informed patient's nurse about conversation. [facility] 04-07-2023 Note Formatting of this n ote might be different from the original. CORPORATE TRUST OFFICER saw patient to discuss aftercare plans and treatment post discharge. Patient was reminded about virtual intake appointment with [facility] program on 04/08/2023 at 1:30 PM. CORPORATE TRUST OFFICER explained that agency has sent a link via text messages on his phone. Patient denied current SI/HI/AVH. Patient reported that their son would be picking them up from the hospital and taking them back home. Patient denied needing anything further from CORPORATE TRUST OFFICER at the time. CORPORATE TRUST OFFICER informed patient's nurse about conversation. [facility] 04-07-2023 Miscellaneous Notes CORPORATE TRUST OFFICER saw patient to discuss aftercare plans and treatment post discharge. Patient was reminded about virtual intake appointment with [facility] program on 04/08/2023 at 1:30 PM. CORPORATE TRUST OFFICER explained that agency has sent a link via text messages on his phone. Patient denied current SI/HI/AVH. Patient reported that their son would be picking them up from the hospital and taking them back home. Patient denied needing anything further from CORPORATE TRUST OFFICER at the time. GISSELL informed patient's nurse [...] Woody Ni Date of : 1960 MR: [id number] Appearance: Good eye contact Affect: Appropriate Behavior: [...] with concerns or questions. Inder Stein DO CORPORATE TRUST OFFICER met with patient who was still agreeable to virtual IOP program with [facility] program. Patient signed MALINI. CORPORATE TRUST OFFICER will send referral information for intake appointment. [...] 18 years old and enlisted in the [employer]. Patient reports his drink became problematic within [...] abuse as an adult. Patient is a [employer] . Patient reports having a listed shortly after turning 18 years old. Patient reports he was stationed 5 miles from [facility] in -. Patient reports having an honorable discharge. Family Constellation/Childhood History: Patient reports he is currently living in [place] patient denies have any biological children. Patient reports having 3 stepchildren whom he has help to raise. [place] with his longtime girlfriend. Patient has a previous history of divorce. Patient reports that he has 2 sisters whom he maintains a relationship with. Patient reports that his mother . Patient reports his 86-year-old father currently lives with one of his sisters. Patient reports that he grew up in [place] by his biological mother and father. Patient denies any history of adolescent childhood trauma or abuse. 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 Patient is currently unemployed and receives SSI/SSD. Cultural/Spirituality/Leisure: Patient denies any cultural needs or concerns at the current time. Patient denies identify any amish preference at current time. Patient is not attending services anywhere. Patient reports in his leisure time he enjoys watching [place] [employer] sports and football. Support Systems/Collateral Information: Patient [...] treatment due to transportation issues. Patient and CORPORATE TRUST OFFICER discussed alternative options in the community that provide virtual assessment and IOP services. Patient is interested in the services and willing to engage in them. CORPORATE TRUST OFFICER will assist patient with scheduling aftercare appointments. Patient encouraged to engage in activities that are offered and ways in the unit. Patient not report anything additional at current time. Patient encouraged to seek out CORPORATE TRUST OFFICER unit staff should he identify any additional [...] for clarification. documented in this encounter [facility] 04-07-2023 Hospital course Narrative Physician Discharge Summary Patient ID: Woody Ni [id number] 63 y.o. 1960 Admit date: 04/02/2023 Discharge [...] National Suicide Prevention Hotline if needed at: 1-342-048-QTAH (0527) Please call the following number should you have questions regarding your discharge or aftercare appointments: [address] I spent total time 35 minutes counseling and coordinating care and provided discussion regarding the patient condition, diagnosis, symptoms signs and lab work, and treatment plan and options. Signed: ALBERTO PEREZ MD, MD 04/07/2023 11:11 AM documented in this encounter [facility] 04-07-2023 History of Present illness Narrative [...] There is a history of cirrhosis. GI applications development consultant did recommend outpatient EGD, colonoscopy and [...] min Stress: No Stress Concern Present (04/03/2023) [place] [employer] - Occupational Stress Questionnaire [...] syndrome Cirrhosis (HCC) Dehydration 12/22/22-12/26/22 admitted to [facility] Depression Diabetes mellitus (HCC) Gout Hepatitis C Hypertension Hyponatremia Hypothyroidism 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 prescription opiate use Nausea and vomiting 12/22/22-12/26/22 admitted at [facility] Pain management Sleep apnea noncompliant with device [...] for this patient to transition to the [facility] intensive outpatient program at [facility] FLAVIO SHERMAN MD Addiction Medicine 04/05/2023 at 1:32 PM -50-- minutes were spent reviewing the patient's records, evaluating the patient, entering orders, coordinating care with the treatment team, and creating a progress note. Narrative portions of the note are written utilizing [employer]by software. While every effort is made to dictate clearly and proofread, errors in the dictation may still occur. If there are any questions regarding the dictation please do not hesitate to contact the author. Images from the original note were not included. [facility] Progress Note 6AM-6PM please message me via [employer] Secure Chat. 6PM-6AM please page [facility] Almond Huller ATT Woody Ni : 1960(63 y.o.) PCP: [...] diarrhea #AGMA -Improved on repeat BMP #HTN -SKI INSTRUCTOR amlodipine, losartan #Hypothyroidism -SKI INSTRUCTOR levothyroxine -TSH wnl DVT Prophylaxis: None Hospital [...] min Stress: No Stress Concern Present (04/03/2023) [place] [employer] - Occupational Stress Questionnaire [...] syndrome Cirrhosis (HCC) Dehydration 12/22/22-12/26/22 admitted to [facility] Depression Diabetes mellitus (HCC) Gout Hepatitis C Hypertension Hyponatremia Hypothyroidism assisted prescription opiate use Nausea and vomiting 12/22/22-12/26/22 admitted at [facility] Pain management Sleep apnea noncompliant with device [...] SARS-CoV-2 Antigen Negative Negative Blood gas, venous ([place]) Collection Time: 04/02/23 6:08 PM [...] portions of the note are written utilizing Bizzby software. While every effort is made to [...] of health problems. Patient presented to the [facility] ER seeking alcohol detox. Alcohol use x40 plus years. Told by MD that he needs detox due to this liver issues and overall health. Was not interested in quitting or detox as recently as 03/10/23. Drinks 12 [place] Lights per day with last use 15 minutes SKI INSTRUCTOR. Told another nurse that he drinks 42 [...] to family. Served 4 years in the [employer]. Strengths include health insurance coverage. Barriers include extensive medical history and long history of alcohol use. Recommend that patient be admitted to [address] for inpatient detox. documented in this encounter [facility] 04-07-2023 Nurse Note Patient alert and oreinted during morning assessment. Patient denied having any SI/HI/AVH. Patient complains of 10/10 headache, and nausea. Patient given PRN tylenol at 0923, PRN Zofran at 0924 and PRN Phenergan injection at 0930. Patient encouraged to notify nursing staff of any needs. Will monitor for patient safety. [facility] 04-07-2023 Plan of care note Problem: [...] Dietary Supplements Outcome: Adequate for Discharge [facility] 04-06-2023 Note Peripheral smear sli de prepared for evaluation. [employer] Work Phone: 04-06-2023 Note Peripheral smear sli de prepared for evaluation. [facility] Work Phone: 04-06-2023 Group counseling note Department: [facility] Topic: Other Group Date: [...] Woody Ni Date of : 1960 MR: [id number] Appearance: Good eye contact Affect: Appropriate Behavior: [...] withdrawal syndrome without complication (HCC) T [facility] 04-06-2023 Plan of care note The [...] Interventions Goal: Dietary Supplements Outcome: Progressing [facility] 04-06-2023 Nurse Note Pt alert and [...] condition. Will monitor pt for safety. [facility] 04-06-2023 Telephone encounter Note Pt is recently at hospital. Will send out letter to his mailing address. Thank you [facility] 04-06-2023 Miscellaneous Notes Pt is recently at hospital. Will send out letter to his mailing address. Thank you Please contact patient for hospital follow up for chronic liver disease, history of ETOH abuse and chronic diarrhea documented in this encounter [facility] 04-05-2023 Plan of care note Problem: [...] Supplements Outcome: Adequate for Discharge T [facility] 04-05-2023 Telephone encounter Note Please contact patient for hospital follow up for chronic liver disease, history of ETOH abuse and chronic diarrhea T [email or web address] Work Phone: 04-05-2023 Consult note Associated Order [...] mellitus (HCC) Gout Hepatitis C Hypertension Hypothyroidism 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 prescription opiate use Nausea and vomiting Pain [...] min Stress: No Stress Concern Present (04/03/2023) [place] [employer] - Occupational Stress Questionnaire [...] outpatient GI clinic (with his established outpatient [facility] Dr. Reyes) upon discharge from hospital. ZACK VALDES MD [employer] Work Phone: 04-05-2023 Consult note Associated Order [...] Maxwell Hinson MD, 650 mg at 04/04/23 8142 albuterol (2.5 MG/3ML) 0.083% nebulizer solution 2.5 [...] mellitus (HCC) Gout Hepatitis C Hypertension Hypothyroidism assisted prescription opiate use Nausea and vomiting Pain [...] min Stress: No Stress Concern Present (04/03/2023) [place] [employer] - Occupational Stress Questionnaire [...] no c/c/e Neuro: nonfocal Labs/Studies reviewed in [facility] GI PCR negative ASSESSMENT/PLAN: Nausea/Vomiting - now [...] outpatient GI clinic (with his established outpatient [employer] [facility] Dr. Reyes) upon discharge from hospital. ZACK [...] swallowing liquids- may be beneficial to have FULL STACK NET DEVELOPER assess to ensure no swallowing complications. 2. [...] comfort) Fluid Accumulation: No significant fluid accumulation Indigo [employer] Strength: Not Performed Nutrition Assessment: pt with PMH significant for anxiety, depression, DM, hypothyroidism, HTN, cirrhosis, alcohol abuse and reflux who presented to [facility] ED on 04/02/23 with request for detox, pt admitted to detoxification unit for treatment of alcohol dependence/withdrawal- SKI INSTRUCTOR was consuming six 24 ounce beers/day, nursing [...] x5 months) % Weight Change (Calculated): -12.1 [employer] Body Weight (lbs) (Calculated): 166 lbs [employer] Body Weight (Kg) (Calculated): 75 kg % [employer] Body Weight (Calculated): 96.4 % BMI (kg/m2) [...] diet Karoline Bajwa RD Contact: available via Pathwright or *[phone] Associated Order(s): IP CONSULT TO INTERNAL MEDICINE Images from the original note were not included. [facility] Initial Consult Woody Ni : 1960(63 y.o.) [...] well) to confirm this has resolved #HTN -SKI INSTRUCTOR amlodipine, losartan #Hypothyroidism -SKI INSTRUCTOR levothyroxine -TSH ordered DVT Prophylaxis: None Thank [...] Dr. Inder Stein, DO 6PM-6AM please page: [facility] [place] Subjective: Chief Complaint Patient presents with Alcohol Problem Interval History: Woody Ni is a 63 y.o. male admitted to [facility] for EtOH detox. [facility] [place] consulted for unintentional weight [...] syndrome Cirrhosis (HCC) Dehydration 12/22/22-12/26/22 admitted to [facility] Depression Diabetes mellitus (HCC) Gout Hepatitis C Hypertension Hyponatremia Hypothyroidism 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 prescription opiate use Nausea and vomiting 12/22/22-12/26/22 admitted at [facility] Pain management Sleep apnea noncompliant with device [...] min Stress: No Stress Concern Present (04/03/2023) [place] [employer] [employer] - Occupational Stress Questionnaire [...] been reviewed. 6AM-6PM please message me via Imagine K12. 6PM-6AM please page [facility] - [facility] [place] Almond Huller ATT documented in this encounter [email or web address] 04-05-2023 Nurse Note Patient alert and oriented during morning assessment. Patient denied having any SI/HI/AVH and pain. Patient med compliant. Patient complains of having indigestion. Patient given PRN Mylanta. Patient ordered breakfast but did not eat; has no appetite. Patient seen by gastroenterology this morning. Patient encouraged to notify nursing staff of any needs. Will monitor for patient safety. [email or web address] 04-04-2023 Plan of care note Problem: Sensory [...] Dietary Supplements Outcome: Adequate for Discharge [facility] 04-04-2023 Consult note Associated Order (s): [...] swallowing liquids- may be beneficial to have FULL STACK NET DEVELOPER assess to ensure no swallowing complications. 2. [...] comfort) Fluid Accumulation: No significant fluid accumulation Indigo Mixer Strength: Not Performed Nutrition Assessment: pt with PMH significant for anxiety, depression, DM, hypothyroidism, HTN, cirrhosis, alcohol abuse and reflux who presented to [facility] ED on 04/02/23 with request for detox, pt admitted to detoxification unit for treatment of alcohol dependence/withdrawal- SKI INSTRUCTOR was consuming six 24 ounce beers/day, nursing [...] x5 months) % Weight Change (Calculated): -12.1 [employer] Body Weight (lbs) (Calculated): 166 lbs [employer] Body Weight (Kg) (Calculated): 75 kg % [employer] Body Weight (Calculated): 96.4 % BMI (kg/m2) [...] diet Karoline Bajwa RD Contact: available via Boomrat chat or *[phone] [facility] 04-04-2023 Nurse Note Patient alert and oriented [...] to patient at 1545 for diarrhea. [facility] 04-04-2023 Consult note Associated Order (s): IP CONSULT TO INTERNAL MEDICINE Images from the original note were not included. [facility] Initial Consult Woody Ni [...] well) to confirm this has resolved #HTN -SKI INSTRUCTOR amlodipine, losartan #Hypothyroidism -SKI INSTRUCTOR levothyroxine -TSH ordered DVT Prophylaxis: None Thank [...] Dr. Inder Stein, DO 6PM-6AM please page: [facility] [place] Subjective: Chief Complaint Patient presents with Alcohol Problem Interval History: Woody Ni is a 63 y.o. male admitted to [facility] for EtOH detox. [facility] [place] consulted for unintentional weight [...] syndrome Cirrhosis (HCC) Dehydration 12/22/22-12/26/22 admitted to [facility] Depression Diabetes mellitus (HCC) Gout Hepatitis C Hypertension Hyponatremia Hypothyroidism assisted prescription opiate use Nausea and vomiting 12/22/22-12/26/22 admitted at [facility] Pain management Sleep apnea noncompliant with device [...] min Stress: No Stress Concern Present (04/03/2023) [place] [employer] [employer] - Occupational Stress Questionnaire [...] been reviewed. 6AM-6PM please message me via Imagine K12. 6PM-6AM please page [facility] Hospitalist - [facility] Almond Huller ATT [facility] 04-04-2023 Plan of care note Problem: [...] from restraint events Outcome: Progressing T [facility] 04-03-2023 Plan of care note Consult acknowledged. Labs and vitals reviewed. The patient will be seen tomorrow with full consult note to follow. Thank you for the opportunity to participate in the care of this patient. Please reach out with concerns or questions. Inder Stein DO [facility] 04-03-2023 History and physical note Sebastian [...] min Stress: No Stress Concern Present (04/03/2023) [place] [employer] [employer] - Occupational Stress Questionnaire [...] syndrome Cirrhosis (HCC) Dehydration 12/22/22-12/26/22 admitted to [facility] Depression Diabetes mellitus (HCC) Gout Hepatitis C Hypertension Hyponatremia Hypothyroidism 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 prescription opiate use Nausea and vomiting 12/22/22-12/26/22 admitted at [facility] Pain management Sleep apnea noncompliant with device [...] SARS-CoV-2 Antigen Negative Negative Blood gas, venous ([place]) Collection Time: 04/02/23 6:08 PM [...] team, and creating a progress note. [facility] 04-03-2023 History and physical note [facility] Addiction Medicine Patient: Woody Ni Admit Date: [...] min Stress: No Stress Concern Present (04/03/2023) [place] [employer] [employer] - Occupational Stress Questionnaire [...] syndrome Cirrhosis (HCC) Dehydration 12/22/22-12/26/22 admitted to [facility] Depression Diabetes mellitus (HCC) Gout Hepatitis C Hypertension Hyponatremia Hypothyroidism 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 prescription opiate use Nausea and vomiting 12/22/22-12/26/22 admitted at [facility] Pain management Sleep apnea noncompliant with device [...] SARS-CoV-2 Antigen Negative Negative Blood gas, venous ([place]) Collection Time: 04/02/23 6:08 PM [...] progress note. documented in this encounter [facility] 04-03-2023 Note Formatting of this n ote might be different from the original. CORPORATE TRUST OFFICER met with patient who was still agreeable to virtual IOP program with [facility] program. Patient signed MALINI. CORPORATE TRUST OFFICER will send referral information for intake appointment. All information will be included in patient's discharge paperwork. [facility] 04-03-2023 Note Formatting of this n ote might be different from the original. CORPORATE TRUST OFFICER met with patient who was still agreeable to virtual IOP program with [facility] program. Patient signed MALINI. CORPORATE TRUST OFFICER will send referral information for intake appointment. All information will be included in patient's discharge paperwork. [facility] 04-03-2023 Hospital Discharge instructions GISSELL Childers [...] National Suicide Prevention Hotline if needed at: 3-607-607-TNCD (5553) Please call the following number should you have questions regarding your discharge or aftercare appointments: 4 [facility] documented in this encounter [facility] 04-03-2023 Note Formatting of this n [...] 18 years old and enlisted in the [employer]. Patient reports his drink became problematic [...] Patient reports he is currently living in [place] patient denies have any biological children. Patient reports having 3 stepchildren whom he has help to raise. [place] with his longtime girlfriend. Patient has a previous history of divorce. Patient reports that he has 2 sisters whom he maintains a relationship with. Patient reports that his mother . Patient reports his 86-year-old father currently lives with one of his sisters. Patient reports that he grew up in [place] by his biological mother and father. Patient denies any history of adolescent childhood trauma or abuse. 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 Patient is currently unemployed and receives SSI/SSD. Cultural/Spirituality/Leisure: Patient denies any cultural needs or concerns at the current time. Patient denies identify any amish preference at current time. Patient is not attending services anywhere. Patient reports in his leisure time he enjoys watching [place] [employer] sports and football. Support Systems/Collateral Information: Patient [...] treatment due to transportation issues. Patient and CORPORATE TRUST OFFICER discussed alternative options in the community that provide virtual assessment and IOP services. Patient is interested in the services and willing to engage in them. CORPORATE TRUST OFFICER will assist patient with scheduling aftercare appointments. Patient encouraged to engage in activities that are offered and ways in the unit. Patient not report anything additional at current time. Patient encouraged to seek out CORPORATE TRUST OFFICER unit staff should he identify any additional [...] to contact the dictating provider for clarification. [facility] 04-03-2023 Note Formatting of this n [...] 18 years old and enlisted in the [employer]. Patient reports his drink became problematic [...] Patient reports he is currently living in [place] patient denies have any biological children. Patient reports having 3 stepchildren whom he has help to raise. [place] with his longtime girlfriend. Patient has a previous history of divorce. Patient reports that he has 2 sisters whom he maintains a relationship with. Patient reports that his mother . Patient reports his 86-year-old father currently lives with one of his sisters. Patient reports that he grew up in [place] by his biological mother and father. Patient denies any history of adolescent childhood trauma or abuse. 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 Patient is currently unemployed and receives SSI/SSD. Cultural/Spirituality/Leisure: Patient denies any cultural needs or concerns at the current time. Patient denies identify any amish preference at current time. Patient is not attending services anywhere. Patient reports in his leisure time he enjoys watching [place] [employer] sports and football. Support Systems/Collateral Information: Patient [...] treatment due to transportation issues. Patient and CORPORATE TRUST OFFICER discussed alternative options in the community that provide virtual assessment and IOP services. Patient is interested in the services and willing to engage in them. CORPORATE TRUST OFFICER will assist patient with scheduling aftercare appointments. Patient encouraged to engage in activities that are offered and ways in the unit. Patient not report anything additional at current time. Patient encouraged to seek out CORPORATE TRUST OFFICER unit staff should he identify any additional [...] contact the dictating provider for clarification. [facility] 04-03-2023 Nurse Note Pt alert and [...] Will monitor pt for safety. T [facility] 04-02-2023 Emergency department Note Patient left with Physician's crew. Ruperto Velazquez RN 04/02/232058 [facility] 04-02-2023 Emergency department Note Patient left with Physician's crew. Ruperto Velazquez RN 04/02/232058 Warm blanket to patient. Ruperto Velazquez RN 04/02/232040 Patient's belongings inventoried by staff electronic warfare officer. Ruperto Velazquez RN 04/02/232014 Report to [...] Culture. Procedure Abnormality Status --------- ------ Complete Urinalysis[[id number]] Abnormal Final result Please view results for [...] RN 04/02/232013 documented in this encounter [facility] 04-02-2023 Emergency department Note Warm blanket to patient. Ruperto Velazquez RN 04/02/232040 [facility] 04-02-2023 Emergency department Note Patient's belongings inventoried by staff electronic warfare officer. Ruperto Velazquez RN 04/02/232014 [facility] 04-02-2023 Emergency department Note Report to 4E. Ruperto Velazquez RN 04/02/232014 [facility] 04-02-2023 Emergency department Note Phys[facility] Amb[facility] gave ETA Ruperto Velazquez RN 04/02/231950 [facility] 04-02-2023 Emergency department Note Phone to patient. Ruperto Velazquez RN 04/02/231910 [facility] 04-02-2023 Emergency department Note Report from dayshift Rns. Pt. Resting, no distress noted. Ruperto Velazquez RN 04/02/23 1911 [facility] 04-02-2023 Note NOTE: This result is for medical treatment only. Analysis performed using non-forensic procedures. [facility] 04-02-2023 Emergency department Note Lab called with panic ETOH 0.352. Dr. Bermudez aware Emilee Gonzalez RN 04/02/23 1714 [facility] 04-02-2023 Emergency department Note Patient up to bathroom, and back to bed. Ophelia Schultz RN 04/02/23 1641 [facility] 04-02-2023 Emergency department Triage note Pt [...] he drinks 12-18 beers a day. [facility] 04-02-2023 Physician Emergency department Note EMERGENCY [...] Culture. Procedure Abnormality Status --------- ------ Complete Urinalysis[[id number]] Abnormal Final result Please view results for [...] (electronically signed) José Luis Bermudez MD 04/02/231899 [email or web address] Work Phone: 04-02-2023 Emergency department Note Report to 4E. Ruperto Velazquez RN 04/02/232013 [facility] 02-17-2023 Miscellaneous Notes Attempt #2 - no answer/no contact S: Patient admitted to: [facility] B: Discharged on :February 14, 2023 A: Hospital follow up call initiated to discuss any medication changes, follow up appointments and discharge instructions: diagnosis: hyponatremia R: No contact x 1 at : [phone] documented in this encounter [facility] 02-17-2023 Telephone encounter Note Attempt #2 - no answer/no contact [facility] 02-16-2023 Telephone encounter Note S: Patient admitted to: [facility] B: Discharged on :February 14, 2023 A: Hospital follow up call initiated to discuss any medication changes, follow up appointments and discharge instructions: diagnosis: hyponatremia R: No contact x 1 at : [phone] [facility] 02-14-2023 History of Present illness Narrative Front wheeled walker brought up to room by nursing quality assurance supervisor body. Homegoing instructions given. Iid discontinued. [facility] [...] 100 mL/hr, Last Rate: 100 mL/hr (02/10/23 1228) PRN medications: acetaminophen OR acetaminophen, ondansetron ODT [...] any questions or concerns. Ophelia Ramos APRN, CLOTHESPIN MACHINE OPERATOR [facility], [facility] [phone] Associated attestation - Kennedi Péerz MD - 02/13/2023 5:16 PM EDT I have reviewed the above assessment and plan with the STENCIL CUTTER MACHINE. I agree with above note. Consistently poor [...] any questions or concerns. Ophelia Ramos APRN, CLOTHESPIN MACHINE OPERATOR [facility], [facility] [phone] Associated attestation - Kennedi Pérez MD - 02/12/2023 3:45 PM EDT ,I have reviewed the above assessment and plan with the STENCIL CUTTER MACHINE. I agree with above note. Slowly improving sodium levels. More IVF ordered today as listed in STENCIL CUTTER MACHINE note. Department of Family Medicine Daily Progress [...] DO 02/12/23 7:59 PM Occupational Therapy Facility/Department: [address] Occupational Therapy Initial Evaluation NAME: Woody [...] hyponatremia and is GI/Cdiff rule out. Exam: [facility] Assistance / Modification: SUP-Eliezer for ADLs baseline [...] surgical history that includes Back surgery; Laminectomy; Anderson tooth extraction; lap,cholecystectomy (historical) (N/A, 01/05/2023); and [...] quad cane Transfer Assistance: Needs assistance Active Single Resource Boss: No Objective Gross Assessment: Yes AROM: Generally [...] had a decreased appetite for 2 days SKI INSTRUCTOR, but suspect impaired nutrient utilization 2/2 ongoing vomiting/diarrhea. Also with ETOH use hx) Weight Loss: (Weights are up and down, fluctuating between 171-210#) Body Fat Loss: Unable to assess Muscle Mass Loss: Unable to assess Fluid Accumulation: No significant fluid accumulation Indigo Mixer Strength: Not Performed Nutrition Assessment: Pt was [...] that his appetite only decreased 2 days SKI INSTRUCTOR. Pt has ETOH use hx- reportedly drinks [...] On: Kcal/kg Weight Used for Energy Requirements: [employer] Weight for Energy Calculation (kg): 75 kg Total Energy Requirements (kcals/day): 1618-4611 kcals (25-30 kcals/kg) Weight Used for Protein Requirements: [employer] Weight in Kg Used for Protein Requirements: [...] Meal Intake: (Decreased appetite for two days SKI INSTRUCTOR per pt. Has desire to eat currently) Average Supplements Intake: None Ordered Anthropometric Measures: Height: 177.8 cm (5' 10") Current Body Weight: 77.6 kg (171 lb) Weight Source: Not Specified Admission Body Weight: 79.4 kg (175 lb) (stated) Usual Body Weight: (177-210#) [employer] Body Weight (lbs) (Calculated): 166 lbs [employer] Body Weight (Kg) (Calculated): 75 kg % [employer] Body Weight (Calculated): 103 % BMI (kg/m2) [...] Discharge Planning: Continue Oral Nutrition Supplement Kristine eGorge RD Contact: *[phone] or via Secure Chat Physical Therapy Facility/Department: [facility] 2E Physical Therapy Initial Evaluation NAME: Woody [...] PT to increase functional endurance and strength. [facility] PT and assist. Performance Deficits/Impairments: Decreased functional [...] home and uses SPC for mobility. Rec [facility], however patient is declining due to living [...] surgical history that includes Back surgery; Laminectomy; [place] tooth extraction; lap,cholecystectomy (historical) (N/A, 01/05/2023); and [...] quad cane Transfer Assistance: Needs assistance Active Single Resource Boss: No Objective Observation/Palpation Posture: Fair Observation: PIV [...] Bull PT documented in this encounter [facility] 02-14-2023 Hospital Discharge instructions Lynne Moser RN - 02/14/2023 10:41 AM EDT [place] to chew healthy diet restrict fluid intake documented in this encounter [facility] 02-14-2023 Hospital course Narrative Images from [...] Complexity: follow up within 7-14 calendar days (97638) [] Severe Complexity: follow up within 7 calendar days (62498) FOLLOW UP TESTING, PENDING RESULTS OR REFERRALS AT TRANSITIONAL CARE VISIT: [] Yes [] No PENDING STUDIES: none DISPOSITION: Home FACILITY/HOME CARE AGENCY NAME: Follow up with Kennedi Pérez MD [address] [place] [address] Follow up Outpatinet labs in 1 [...] 9:17 AM documented in this encounter [facility] 02-14-2023 Plan of care note Problem: Potential for Compromised Skin Integrity Goal: Skin Integrity is Maintained or Improved Outcome: Progressing Problem: Urinary Incontinence Goal: Perineal skin integrity is maintained or improved Outcome: Progressing [facility] 02-14-2023 Miscellaneous Notes Problem: Potential for [...] home care services. FWW ordered yesterday per [employer] [facility] folder request. [facility] notified. Discharge Milestones and Delays [...] No GMLOS Documented .. Received message from [facility] folder that patient was requesting FWW. Order obtained [...] did evaluate yesterday and recommended home with [facility]. Patient did refuse yesterday. Will discuss with him again prior to discharge to determine if he has changed his mind. Discharge plan home with [facility] vs home with significant other when [...] of Information: Patient Name/Contact Information: KINGSLEY CARL [phone] SIGNIFICANT OTHER FOR 25 YEARS Cognition/Language: WFL - Within Functional Limits Permission given to speak with patient security systems sales representative/caregiver as indicated: Yes Confirmation of Payer with patient/family: Yes Payer Name: MEDICARE AND MEDICAID [place]: No Confirmation of Primary Care Physician: Confirmed [...] consult. . documented in this encounter [facility] 02-13-2023 Note Formatting of this n [...] home care services. FWW ordered yesterday per case folder request. [facility] notified. Discharge Milestones and Delays [...] 3 GMLOS: No GMLOS Documented .. [facility] 02-13-2023 Note Formatting of this n [...] home care services. FWW ordered yesterday per [facility] folder request. [facility] notified. Discharge Milestones and Delays [...] (Days): 3 GMLOS: No GMLOS Documented .. [facility] 02-12-2023 Note Formatting of this n ote might be different from the original. Received message from [employer] [facility] folder that patient was requesting FWW. Order obtained and [facility] liaison notified. [facility] 02-12-2023 Note Formatting of this n ote might be different from the original. Received message from [employer] [facility] folder that patient was requesting FWW. Order obtained and [facility] liaison notified. [facility] 02-12-2023 Note Formatting of this n ote [...] did evaluate yesterday and recommended home with [facility]. Patient did refuse yesterday. Will discuss with him again prior to discharge to determine if he has changed his mind. Discharge plan home with [facility] vs home with significant other when [...] (Days): 2 GMLOS: No GMLOS Documented .. [facility] 02-12-2023 Note Formatting of this n ote [...] did evaluate yesterday and recommended home with [facility]. Patient did refuse yesterday. Will discuss with him again prior to discharge to determine if he has changed his mind. Discharge plan home with [facility] vs home with significant other when [...] GMLOS: No GMLOS Documented .. T [facility] 02-12-2023 Consult note Associated Order (s): [...] pain Cirrhosis (HCC) Dehydration 12/22/22-12/26/22 admitted to [facility] Diabetes mellitus (HCC) Gout Hepatitis C Hypertension Hypothyroidism Nausea and vomiting 12/22/22-12/26/22 admitted at [facility] Sleep apnea noncompliant with device PAST SURGICAL [...] to contact the dictating provider for clarification.) [employer] [facility] Phone: 02-12-2023 Consult note Associated Order (s): [...] pain Cirrhosis (HCC) Dehydration 12/22/22-12/26/22 admitted to [facility] Diabetes mellitus (HCC) Gout Hepatitis C Hypertension Hypothyroidism Nausea and vomiting 12/22/22-12/26/22 admitted at [facility] Sleep apnea noncompliant with device PAST SURGICAL [...] clarification.) Associated Order(s): IP CONSULT TO NEPHROLOGY [facility] Consult Note Reason for [...] pain Cirrhosis (HCC) Dehydration 12/22/22-12/26/22 admitted to [facility] Diabetes mellitus (HCC) Gout Hepatitis C Hypertension Hypothyroidism Nausea and vomiting 12/22/22-12/26/22 admitted at [facility] Sleep apnea noncompliant with device Past Surgical [...] any questions or concerns. Ophelia Ramos APRN, CLOTHESPIN MACHINE OPERATOR [facility], [facility] [phone] office Associated attestation - Kennedi Pérez MD [...] over time. documented in this encounter [facility] 02-11-2023 Note Formatting of this n ote might be different from the original. Care Managment Initial Assessment Date: 02/11/2023 Patient Name: Woody Ni : 1960 Patient Information Source of Information: Patient Name/Contact Information: KINGSLEY CARL [phone] SIGNIFICANT OTHER FOR 25 YEARS Cognition/Language: WFL - Within Functional Limits Permission given to speak with patient security systems sales representative/caregiver as indicated: Yes Confirmation of Payer [...] medically stable.. Lea Gee RN T [facility] 02-11-2023 Note Formatting of this n ote might be different from the original. Care Managment Initial Assessment Date: 02/11/2023 Patient Name: Woody Ni : 1960 Patient Information Source of Information: Patient Name/Contact Information: KINGSLEY CARL [phone] SIGNIFICANT OTHER FOR 25 YEARS Cognition/Language: WFL - Within Functional Limits Permission given to speak with patient security systems sales representative/caregiver as indicated: Yes Confirmation of Payer [...] other when medically stable.. Lea Gee RN [facility] 02-11-2023 Consult note Associated Order (s): IP CONSULT TO NEPHROLOGY [facility] Consult Note Reason for [...] pain Cirrhosis (HCC) Dehydration 12/22/22-12/26/22 admitted to [facility] Diabetes mellitus (HCC) Gout Hepatitis C Hypertension Hypothyroidism Nausea and vomiting 12/22/22-12/26/22 admitted at [facility] Sleep apnea noncompliant with device Past Surgical [...] any questions or concerns. Ophelia Ramos APRN, CLOTHESPIN MACHINE OPERATOR [facility], [facility] [phone] office Associated attestation - Kennedi Pérez MD [...] closely, has slowly improved over time. [facility] 02-11-2023 History and physical note Department [...] pain Cirrhosis (HCC) Dehydration 12/22/22-12/26/22 admitted to [facility] Diabetes mellitus (HCC) Gout Hepatitis C Hypertension Hypothyroidism Nausea and vomiting 12/22/22-12/26/22 admitted at [facility] Sleep apnea noncompliant with device Past Surgical [...] BENZ DO 02/11/23 9:20 AM T [facility] 02-11-2023 History and physical note Department [...] pain Cirrhosis (HCC) Dehydration 12/22/22-12/26/22 admitted to [facility] Diabetes mellitus (HCC) Gout Hepatitis C Hypertension Hypothyroidism Nausea and vomiting 12/22/22-12/26/22 admitted at [facility] Sleep apnea noncompliant with device Past Surgical [...] 9:20 AM documented in this encounter [facility] 02-11-2023 Note Formatting of this n [...] benefit from addiction med consult. . [facility] 02-11-2023 Note Formatting of this n [...] benefit from addiction med consult. . [facility] 02-11-2023 Emergency department Note Ice chips provided. No other needs at this time. Call light at bedside. Adri Parra 02/11/23 0019 [facility] 02-11-2023 Emergency department Note Ice chips provided. No other needs at this time. Call light at bedside. Adri Parra 02/11/23 0019 Per physicans they outsourced to Sergio Lynn new ETA will be [phone]. Ophelia Schultz RN 02/10/23 3556 Critical sodium level received from Ashly in lab; sodium is 118, and primary nurse MEGGAN Jacinto notified. Aubree Ratliff RN 02/10/23 2246 Emergency Department Encounter [facility] ED Patient: Woody Ni : 1960 Date of Evaluation: 02/10/2023 ED Provider: Rubén Hoang DO Chief Complaint Chief Complaint Patient presents with Vomiting Diarrhea DEERING Woody Ni is a 63 y.o. male [...] pain Cirrhosis (HCC) Dehydration 12/22/22-12/26/22 admitted to [facility] Diabetes mellitus (HCC) Gout Hepatitis C Hypertension Hypothyroidism Nausea and vomiting 12/22/22-12/26/22 admitted at [facility] Sleep apnea noncompliant with device Past Surgical [...] orders to display Procedures/EKG: EKG Interpreted in [employer] software by myself SCREENINGS EMERGENCY DEPARTMENT COURSE [...] within reach. documented in this encounter [facility] 02-10-2023 Emergency department Note Per physicans they outsourced to Sergio Shane new ETA will be [phone]. Ophelia Schultz RN 02/10/23 2336 [facility] 02-10-2023 Emergency department Note Critical sodium level received from Elida in lab; sodium is 118, and primary nurse MEGGAN Jacinto notified. Aubree Ratliff RN 02/10/23 2246 [facility] 02-10-2023 Emergency department Triage note Patient to room 12 with c/o N/V/D, headache, cough for 2 days. Patient reports testing himself for COVID 2 days ago with negative results. V/S obtained, call light within reach. [facility] 02-10-2023 Physician Emergency department Note Emergency Department Encounter [facility] ED Patient: Woody Ni : 1960 [...] pain Cirrhosis (HCC) Dehydration 12/22/22-12/26/22 admitted to [facility] Diabetes mellitus (HCC) Gout Hepatitis C Hypertension Hypothyroidism Nausea and vomiting 12/22/22-12/26/22 admitted at [facility] Sleep apnea noncompliant with device Past Surgical [...] orders to display Procedures/EKG: EKG Interpreted in [employer] software by myself SCREENINGS EMERGENCY DEPARTMENT COURSE [...] Solutions Rubén Hoang DO 02/11/23 0212 [facility] 01-28-2023 History of Present illness Narrative [facility] - Surgery Patient Name: Woody Ni [...] pain Cirrhosis (HCC) Dehydration 12/22/22-12/26/22 admitted to [facility] Diabetes mellitus (HCC) Gout Hepatitis C Hypertension Hypothyroidism Nausea and vomiting 12/22/22-12/26/22 admitted at [facility] Sleep apnea noncompliant with device O: BP [...] MD (Gastroenterology) documented in this encounter [facility] 01-12-2023 Telephone encounter Note Called and spoke to Kingsley and gave her the information regarding drainage. She voiced understanding. They have not yet made appt with GI [facility] 01-12-2023 Miscellaneous Notes Called and spoke [...] Name of caller: Kingsley Contact phone number: [phone] Relationship to Patient: spouse Provider: Dr Fang Practice: [facility] Chief Complaint/Reason for Call: Kingsley states pt [...] call: N/A documented in this encounter [facility] 01-12-2023 Telephone encounter Note Patient has ascites from his cirrhotic liver. This is a build up of fluid in his abdomen. He is going to continue to have drainage until wound closes which can take a few weeks. Need to continue to change dressing as needed. Please ask if he made appt with GI. Thanks. [facility] 01-12-2023 Telephone encounter Note Name of caller: Kingsley Contact phone number: [phone] Relationship to Patient: spouse Provider: Dr Fang Practice: [facility] Chief Complaint/Reason for Call: Kingsley states pt [...] hours to return their call: N/A [facility] 01-09-2023 Emergency department Note Pt given chux and dressing supplies to go home with. Instructed to increase Lasix to 40mg Thursday, Thursday and Thursday. Pt and verbalized understanding Emilee Gonzalez RN 01/09/23 1407 [facility] 01-09-2023 Emergency department Note Pt given chux and dressing supplies to go home with. Instructed to increase Lasix to 40mg Thursday, Thursday and Thursday. Pt and verbalized understanding Emilee Gonzalez RN 01/09/23 1402 Waiting for call back from Dr. Zografakis. [...] Cirrhosis (CMS/HCC) (HCC) Dehydration 12/22/22-12/26/22 admitted to [facility] Diabetes mellitus (HCC) Gout Hepatitis C Hypertension Hypothyroidism Nausea and vomiting 12/22/22-12/26/22 admitted at [facility] Sleep apnea noncompliant with device SURGICAL HISTORY [...] the abdomen pelvis Discussions with other clinicians: Carding Utility Tender Dr. Fang directed that this is likely [...] PM PATIENT REFERRED TO: Jani Quezada [address] [facility] [address] [facility] [address] Schedule an appointment as soon as possible for a visit [facility] ED [address] [facility] [phone] As needed DISCHARGE MEDICATIONS: [...] Emergency Medicine Provider Júnior Lo MD 01/09/23 7864 Pt to ER with complaint of leaking [...] shirt wet. documented in this encounter [facility] 01-09-2023 Hospital Discharge instructions Júnior Lo MD - 01/09/2023 1:53 PM EDT Take 40 mg a day of the Lasix Thursday Contact your doctor and Dr. Fang on Thursday to inform them of how you are doing. The following attachments cannot be sent through Care Everywhere.Cirrhosis (Hungarian)documented in this encounter [facility] 01-09-2023 Emergency department Note Waiting for call back from Dr. Fang. Pt and aware Emilee Gonzalez RN 01/09/23 1351 [facility] 01-09-2023 Emergency department Triage note Pt [...] bandaid dressing and pt shirt wet. [facility] 01-09-2023 Physician Emergency department Note EMERGENCY [...] Cirrhosis (CMS/HCC) (HCC) Dehydration 12/22/22-12/26/22 admitted to [facility] Diabetes mellitus (HCC) Gout Hepatitis C Hypertension Hypothyroidism Nausea and vomiting 12/22/22-12/26/22 admitted at [facility] Sleep apnea noncompliant with device SURGICAL HISTORY [...] the abdomen pelvis Discussions with other clinicians: Carding Utility Tender Dr. Fang directed that this is likely [...] PM PATIENT REFERRED TO: Jani Alvarezrocael [address] [facility] [address] [facility] [address] Schedule an appointment as soon as possible for a visit [facility] ED [address] [facility] [address] As needed DISCHARGE MEDICATIONS: New [...] Emergency Medicine Provider Júnior Lo MD 01/09/23 4630 [employer] Work Phone: 01-05-2023 Note Formatting of this n ote might be different from the original. Images from the original note were not included. [facility] - [facility] Physicians Surgery Patient Name: Woody Ni OPERATIVE NOTE DATE OF PROCEDURE: 01/05/2023 SURGEON: Ruperto Fang MD ELECTRIC TAPE SLITTER: Genna Castro DO PREOPERATIVE DIAGNOSIS: Gallbladder sludge [...] the recovery room in stable condition. [facility] 01-05-2023 Note Formatting of this n ote might be different from the original. Images from the original note were not included. [facility] - Surgery [facility] Surgery Patient Name: Woody Ni OPERATIVE NOTE DATE OF PROCEDURE: 01/05/2023 SURGEON: Ruperto Fang MD ELECTRIC TAPE SLITTER: Genna Castro DO PREOPERATIVE DIAGNOSIS: Gallbladder sludge [...] the recovery room in stable condition. [facility] 01-05-2023 Miscellaneous Notes Images from the original note were not included. [facility] - Surgery [facility] Physicians Surgery Patient Name: Woody Ni OPERATIVE NOTE DATE OF PROCEDURE: 01/05/2023 SURGEON: Ruperto Fang MD ELECTRIC TAPE SLITTER: Genna Castro DO PREOPERATIVE DIAGNOSIS: Gallbladder sludge [...] stable condition. documented in this encounter [facility] 01-05-2023 Attending History and physical note Images from the original note were not included. [facility] - Surgery [facility] Physicians Surgery Patient Name: Woody Ni Date: [...] Source Note - Erika Lazar APRN - CLOTHESPIN MACHINE OPERATOR - 12/29/2022 11:30 AM EDT Images from the original note were not included. Comprehensive PreSurgical History and Physical ? Name: Woody Ni : 1960 (Age-62 y.o.) Date of Service: Pt seen/examined on 12/29/2022 Procedure Information Date/Time: 01/05/23929 Procedure: LAPAROSCOPIC CHOLECYSTECTOMY, POSSIBLE OPEN (Abdomen) - 90 minutes total Location: [address] Operating Room Surgeons: Ruperto Fang MD Chief Complaint: Other specified disease of gallbladder History Of Present Illness: 62 y.o. male who we are asked to see/evaluate by Dr. Fang for pre-operative evaluation prior to above procedure . ? Denies history of VA, CAD, CHF, TIA, CVA Past Medical History: Past Medical History: No date: Acid reflux No date: Anxiety No date: Back pain No date: Cirrhosis (CMS/HCC) (HCC) No date: Dehydration Comment: 12/22/22-12/26/22 admitted to [facility] No date: Diabetes mellitus (HCC) No date: Gout No date: Hepatitis C No date: Hypertension No date: Hypothyroidism No date: Nausea and vomiting Comment: 12/22/22-12/26/22 admitted at [facility] Past Surgical History: Past Surgical History: No [...] and Sleep Clinic Referral (if appropriate) [facility] 01-05-2023 History and physical note Images from the original note were not included. [facility] - Surgery [facility] Physicians Surgery Patient Name: Woody Ni Date: [...] Source Note - Erika Lazar APRN - CLOTHESPIN MACHINE OPERATOR - 12/29/2022 11:30 AM EDT Images from the original note were not included. Comprehensive PreSurgical History and Physical ? Name: Woody Ni : 1960 (Age-62 y.o.) Date of Service: Pt seen/examined on 12/29/2022 Procedure Information Date/Time: 01/05/23 0930 Procedure: LAPAROSCOPIC CHOLECYSTECTOMY, POSSIBLE OPEN (Abdomen) - 90 minutes total Location: [facility] OR [address] [place] [address] Operating Room Surgeons: Ruperto Fang MD Chief Complaint: Other specified disease of gallbladder History Of Present Illness: 62 y.o. male who we are asked to see/evaluate by Dr. Fang for pre-operative evaluation prior to above procedure . ? Denies history of VA, CAD, CHF, TIA, CVA Past Medical History: Past Medical History: No date: Acid reflux No date: Anxiety No date: Back pain No date: Cirrhosis (CMS/HCC) (HCC) No date: Dehydration Comment: 12/22/22-12/26/22 admitted to [facility] No date: Diabetes mellitus (HCC) No date: Gout No date: Hepatitis C No date: Hypertension No date: Hypothyroidism No date: Nausea and vomiting Comment: 12/22/22-12/26/22 admitted at [facility] Past Surgical History: Past Surgical History: No [...] (if appropriate) documented in this encounter [facility] 01-05-2023 Hospital Discharge instructions Ruperto Fang MD - 01/05/2023 7:34 AM EDT Images from the original note were not included. [facility] - Surgery [facility] Physicians Surgery DISCHARGE INSTRUCTIONS FOR DR. FANG Thank you very much for allowing me to participate in your care, it is truly a privilege. Below please see discharge orders that will help you during your recovery. Please do not hesitate to call the office during the day at [phone] for any questions. After hours, the same [...] M.D., F.A.C.S. documented in this encounter [facility] 12-30-2022 Telephone encounter Note Spoke with [...] 10mg as prescribed by pain management. [facility] 12-30-2022 Miscellaneous Notes Spoke with patient's [...] pain management. documented in this encounter [facility] 12-27-2022 Telephone encounter Note Date/Time patient [...] compliment? Everyone was great to him. [facility] 12-27-2022 Miscellaneous Notes Date/Time patient contacted: [...] to him. documented in this encounter [facility] 12-25-2022 Miscellaneous Notes Was following for [...] for the shift include fluids and comfort Aged Or Disabled Care Worker following case for Discharge Needs. Aware PT [...] Limits Permission given to speak with patient security systems sales representative/caregiver as indicated: Yes Confirmation of Payer [...] Living Prescription Coverage: Yes Pharmacy Used: [facility] Medication Management: Independent Transportation/Shopping: Assistance Provider Transportation/Shopping [...] shift include documented in this encounter [facility] 12-25-2022 Note Formatting of this n ote might be different from the original. Was following for possible HHC services. Both OT and PT therapies have noted that patient has no acute therapy needs at this time. Denies need. Patient to have future elective cholecystectomy later this month. This PACC will sign off this referral. [email or web address] 12-25-2022 Note Formatting of this n ote might be different from the original. Was following for possible HHC services. Both OT and PT therapies have noted that patient has no acute therapy needs at this time. Denies need. Patient to have future elective cholecystectomy later this month. This PACC will sign off this referral. [facility] [email or web address] 12-25-2022 History of Present illness Narrative GENERAL [...] proceed with plan. Marlyn Jones, LEAH - CLOTHESPIN MACHINE OPERATOR Occupational Therapy Facility/Department: [facility] Occupational Therapy Treatment NAME: Woody Ni [...] history that includes Back surgery; Laminectomy; and [place] tooth extraction. Restrictions Restrictions/Precautions Restrictions/Precautions: General Precautions, [...] Minutes: 12 Minutes (self) Toma Hardwick OT [facility] Progress Note Subjective/ 62 y.o. [...] any questions or concerns. Ophelia Okeefe APRN, CLOTHESPIN MACHINE OPERATOR [facility], [facility] [phone] Seen and examined. Agree with above assessment and plan. Cr improving. C/w IVF for one more day. Attending Attestation [facility] - Surgery [facility] Physicians Surgery Patient Name: Woody Ni Date: [...] performed. Colin Sánchez MD General Surgery Pager #[phone] Perfect Serve: Colin Sánchez 3:55 PM 12/24/2022 [...] DO 12/24/22 8:26 PM Physical Therapy Facility/Department: [facility] 4S Physical Therapy Initial Evaluation NAME: Woody [...] history that includes Back surgery; Laminectomy; and [place] tooth extraction. Restrictions Restrictions/Precautions Restrictions/Precautions: General Precautions, [...] Independent (with cane) Transfer Assistance: Independent Active Single Resource Boss: No Patient's Single Resource Boss Info: Objective Observation/Palpation Posture: Fair Observation: forward [...] Mod independent Quality of Gait 1: slow hedie, reciprocal stepping Distance (ft) 1: ~300'x1 Comments [...] Inpatient Mobility Raw Score: 24 Mobility Inpatient [facility] G-Code Modifier: CH Goals Eval only Education Education Given To: Patient Education Provided: PT Role, Plan of Care, Energy Conservation, Gait Training Education Method: Verbal Barriers to Learning: None Education Outcome: Verbalized understanding Therapy Time Individual Co-treatment Time In 1537 Time Out 1548 Minutes 11 Krystle Bull PT Occupational Therapy Facility/Department: [address] Occupational Therapy Initial Evaluation NAME: Woody [...] address the above. Recommend planned D/C for [facility] OT with assist PRN. Prognosis: Good Decision [...] history that includes Back surgery; Laminectomy; and [place] tooth extraction. Restrictions Restrictions/Precautions Restrictions/Precautions: General Precautions, [...] Independent (with cane) Transfer Assistance: Independent Active Single Resource Boss: No Patient's Single Resource Boss Info: Objective Gross Assessment: Yes AROM: Generally [...] reports minimal PO intake x few days SKI INSTRUCTOR r/t n&v. Last emesis 12/21 vs 12/22, tolerating CLD well since 12/22) Weight Loss: No significant weight loss Body Fat Loss: No significant body fat loss Muscle Mass Loss: No significant muscle mass loss Fluid Accumulation: No significant fluid accumulation Indigo Mixer Strength: Not Performed Nutrition Assessment: 62 y.o. [...] worsening in the past few days--last emesis SKI INSTRUCTOR. States he was unable to keep any PO down for a few days SKI INSTRUCTOR. He reports tolerating CLD well so far. [...] On: Kcal/kg Weight Used for Energy Requirements: [employer] Weight for Energy Calculation (kg): 75 kg Total Energy Requirements (kcals/day): 27-30 kcal/kg = 6920-2323 kcal/day Weight Used for Protein Requirements: [employer] Weight in Kg Used for Protein Requirements: [...] 05/15 177#) % Weight Change (Calculated): -1.4 [employer] Body Weight (lbs) (Calculated): 166 lbs [employer] Body Weight (Kg) (Calculated): 75 kg % [employer] Body Weight (Calculated): 106.9 % BMI (kg/m2) [...] soon to determine Raya Blandon RD Contact: [phone] documented in this encounter [facility] 12-24-2022 Plan of care note Problem: [...] for the shift include fluids and comfort [employer] 12-23-2022 Note Formatting of this n ote might be different from the original. Aged Or Disabled Care Worker following case for Discharge Needs. Aware PT therapy recommending home with assist PRN with no acute PT needs at this time. Will follow and await final discharge plan. Patient is being monitored for possible surgical intervention on this admit. [facility] 12-23-2022 Note Formatting of this n ote might be different from the original. Aged Or Disabled Care Worker following case for Discharge Needs. Aware PT therapy recommending home with assist PRN with no acute PT needs at this time. Will follow and await final discharge plan. Patient is being monitored for possible surgical intervention on this admit. [facility] 12-23-2022 Consult note Associated Order (s): Inpatient [...] to contact the dictating provider for clarification.) [facility] Phone: 12-23-2022 Consult note Associated Order (s): [...] taking: Reported on 11/07/2022 06/06/22 12/22/22 Nicolas [email or web address] [email or web address]: Allergies Allergen Reactions Allopurinol Other [...] original note were not included. Attending Attestation [facility] - Surgery [facility] Physicians Surgery Patient Name: Woody Ni Date: [...] performed. Colin Sánchez MD General Surgery Pager #[phone] Perfect Serve: Colin Sánchez 4:56 PM 12/23/2022 [...] may have. Kacie Ybarra MD Personal Pager [phone] [facility] Surgery Pager [phone] during hours 7:30a-4:30p Thursday-Thursday After hours, please contact physician power generation equipment repairer. Associated Order(s): IP CONSULT TO NEPHROLOGY [facility] [...] 2/2 losartan given -No acute need for CHILDREN'S TUTOR NURSERY at this time but can still be [...] any questions or concerns. Ophelia Okeefe APRN, CLOTHESPIN MACHINE OPERATOR [facility], [facility] [phone] office Seen and examined. Agree with above A and P. Severe DENNYS 2/2 ATN, volume depletion. Responding to IVF. Change IVF to LR to address worsening acidosis from NS. No CHILDREN'S TUTOR NURSERY indications, will follow. documented in this encounter [facility] 12-23-2022 Consult note Associated Order (s): IP CONSULT TO GENERAL SURGERY Images from the original note were not included. Attending Attestation [facility] - Surgery [facility] Physicians Surgery Patient Name: Woody Ni Date: [...] performed. Colin Sánchez MD General Surgery Pager #[phone] Perfect Serve: Colin Sánchez 4:56 PM 12/23/2022 [...] may have. Kacie Ybarra MD Personal Pager [phone] [facility] Surgery Pager [phone] during hours 7:30a-4:30p Thursday-Thursday After hours, please contact physician power generation equipment repairer. [facility] 12-23-2022 Consult note Associated Order (s): [...] 2/2 losartan given -No acute need for CHILDREN'S TUTOR NURSERY at this time but can still be [...] any questions or concerns. Ophelia Okeefe APRN, CLOTHESPIN MACHINE OPERATOR [facility], [facility] [phone] office Seen and examined. Agree with above A and P. Severe DENNYS 2/2 ATN, volume depletion. Responding to IVF. Change IVF to LR to address worsening acidosis from NS. No CHILDREN'S TUTOR NURSERY indications, will follow. [facility] 12-23-2022 Note Formatting of this n ote might be different from the original. Care Managment Initial Assessment Date: 12/23/2022 Patient Name: Woody Ni : 1960 Patient Information Source of Information: Patient Cognition/Language: WFL - Within Functional Limits Permission given to speak with patient security systems sales representative/caregiver as indicated: Yes Confirmation of Payer with patient/family: Yes Payer Name: Medicare [place]: Yes Confirmation of Primary Care Physician: Confirmed [...] Daily Living Prescription Coverage: Yes Pharmacy Used: [facility] Medication Management: Independent Transportation/Shopping: Assistance Provider Transportation/Shopping [...] will provide transportation home. Alexandra Chaves RN [facility] 12-23-2022 Note Formatting of this n ote might be different from the original. Care Managment Initial Assessment Date: 12/23/2022 Patient Name: Woody Ni : 1960 Patient Information Source of Information: Patient Cognition/Language: WFL - Within Functional Limits Permission given to speak with patient security systems sales representative/caregiver as indicated: Yes Confirmation of Payer [...] Daily Living Prescription Coverage: Yes Pharmacy Used: [facility] Medication Management: Independent Transportation/Shopping: Assistance Provider Transportation/Shopping [...] will provide transportation home. Alexandra Chaves RN [facility] 12-23-2022 History and physical note Department [...] labs KACIE BENZ DO 12/23/22 8:43 PM [facility] 12-23-2022 History and physical note Department [...] 8:43 PM documented in this encounter [facility] 12-23-2022 Plan of care note The patient is Moderately Stable - Low risk of patient condition declining or worsening The patient's goals for the shift include The clinical goals for the shift include [facility] 12-23-2022 Emergency department Note Patient ambulated to EMS stretcher without difficulty Josephine Valverde RN 12/23/22 0005 [facility] 12-23-2022 Emergency department Note Patient ambulated [...] skin or sores Josephine Valverde RN 12/22/22 0414 Warm blankets provided to patient Josephine Valverde [...] to accept patient for telemetry admission at [facility]. Rubén Hoang DO 12/23/22 0015 Patient arrived [...] at bedside. documented in this encounter [facility] 12-22-2022 Emergency department Note Patient appears to be in no acute distress. Respirations even and non labored. A&O x3. Bed locked, in low position, and call light within reach. No further needs. Skin assessed and no wounds or sores visible. Patient denies having any broken skin or sores Josephine Valverde RN 12/22/222355 [facility] 12-22-2022 Emergency department Note Warm blankets provided to patient Josephine Valverde RN 12/22/222105 [facility] 12-22-2022 Emergency department Note Patient ambulated to restroom with IV pole. No difficulty Josephine Valverde RN 12/22/222038 [facility] 12-22-2022 Emergency department Note Patient appears to be in no acute distress. Respirations even and non labored. A&O x3. Bed locked, in low position, and call light within reach. No further needs. Spouse at bedside Josephine Valverde RN 12/22/222035 [facility] 12-22-2022 Note Questionable circumf erential wall thickening of the rectum, please correlate with clinical concern for colitis. Further evaluation with direct visualization may be obtained as indicated. Splenomegaly. Nonobstructing right renal calculi. Report Dictated on Electronically Signed By: Ryan White Electronically Signed Date/Time: 12/22/2022 8:01 PM [facility] EMERGENCY DEPARTMENT [employer] 12-22-2022 Emergency department Note Patient at bedside with urinal Josephine Valverde RN 12/22/22 192 [facility] 12-22-2022 Emergency department Triage note Patient [...] past week. Patient is A&Ox4. at bedside. [facility] [email or web address] 12-22-2022 Physician Emergency department Note Patient signed [...] to accept patient for telemetry admission at [facility]. Rubén Hoang DO 12/23/22 0015 [facility] 12-05-2022 Telephone encounter Note LVM requesting return call to confirm surgical itinerary was received for surgery scheduled 01/05/[address] Fang. [facility] 12-05-2022 Miscellaneous Notes LVM requesting return call to confirm surgical itinerary was received for surgery scheduled 01/05/[address] Fang. LVM asking patient to call back to confirm surgery dates. Name of caller: Kingsley Contact phone number: [phone] Relationship to Patient: spouse/SO Provider: Dr Ruperto [...] @ 11:00am. documented in this encounter [facility] 11-27-2022 Telephone encounter Note LVM asking patient to call back to confirm surgery dates. [facility] 11-27-2022 Miscellaneous Notes LVM asking patient to call back to confirm surgery dates. Name of caller: Kingsley Contact phone number: [phone] Relationship to Patient: spouse/SO Provider: Dr Ruperto [...] @ 11:00am. documented in this encounter [facility] 11-26-2022 Telephone encounter Note Name of caller: Kingsley Contact phone number: [phone] Relationship to Patient: spouse/SO Provider: Dr Ruperto [...] hours to return their call: No [facility] 11-26-2022 Miscellaneous Notes Name of caller: Kingsley Contact phone number: [phone] Relationship to Patient: spouse/SO Provider: Dr Ruperto [...] @ 11:00am. documented in this encounter [facility] 11-20-2022 Telephone encounter Note LVM for patient to return call to schedule surgery. Offering 12/16/22 @ 11:00am. [facility] 11-20-2022 Miscellaneous Notes LVM for patient to return call to schedule surgery. Offering 12/16/22 @ 11:00am. documented in this encounter [facility] 11-07-2022 History of Present illness Narrative Images from the original note were not included. [facility] - Surgery [facility] Physicians Surgery Patient Name: Woody Ni Date: [...] and no gallstones, however. US 07/08/22 @ [facility] IMPRESSION: Slightly coarsened hepatic echotexture with heterogeneous [...] (Gastroenterology) hf documented in this encounter [facility] 07-11-2022 Miscellaneous Notes Called and spoke [...] Munira Staley PA-C documented in this encounter [facility] 07-08-2022 Miscellaneous Notes Order placed, please [...] Munira Staley PA-C documented in this encounter [facility] 07-08-2022 History of Present illness Narrative [...] 2022 9:12 AM documented in this encounter [facility] 06-25-2022 Instructions Munira Staley PA-C - [...] alleviate reflux symptoms. documented in this encounter [facility] 06-25-2022 History of Present illness Narrative [...] (FLONASE) 50 mcg/actuation nasal spray Use 1 Wheeler in the nose once daily as needed. [...] which included preparing to see the patient, mtlz-ze-bika patient care, completing clinical documentation, obtaining and/or reviewing separately obtained history, performing a medically appropriate examination, counseling and educating the patient/family/caregiver, ordering medications, tests, or procedures, communicating with other HCPs (not separately reported), independently interpreting results (not separately reported), communicating results to the patient/family/caregiver, and care coordination (not separately reported). Munira Staley PA-C June 25, 2022 3:38 PM documented in this encounter [facility] 06-06-2022 Note Hospitalist Discharg e Summary [...] to diuretic Hyponatremia-likely. [place] Nausea vomiting resolved Sofoae-mfyqrzx-vqsaklpzxf DENNYS-resolved Hypokalemia Alcohol use disorder Hypertension Hypothyroidism [...] (more content not included)... [facility] 06-06-2022 Hospital course Narrative Images from the [...] to diuretic Hyponatremia-likely. [place] Nausea vomiting resolved Dsrmhl-hdvjkjf-iwyybidmpm DENNYS-resolved Hypokalemia Alcohol use disorder Hypertension Hypothyroidism [...] and B12: Lab Results Component Value Date [id number] 06/04/2022 , No results found for: [...] Medicine ACCESSION EXAM DATE/TIME PROCEDURE ORDERING PROVIDER [id number] 06/06/2022 12:02 EDT NM Gastric Emptying [id number] -JUAN IFIJEN Study CPT code 93267 Reason For Exam (NM Gastric Emptying Study) [...] Result Date: 05/15/2022 [id number] Computed Tomography ACCESSION EXAM DATE/TIME PROCEDURE ORDERING PROVIDER [id number] 05/15/2022 17:[address] Abdomen/Pelvis (No MD AMADA, HANY T PO, No IV) CPT code 48723 Reason For Exam (CT Abdomen/Pelvis (No PO, [...] Your Medications These medications were sent to [address] - P [phone] - F [phone] [place] [address]66 folic acid 1 MG tablet levothyroxine 50 [...] made to ensure accuracy; however, inadvertent computerized vascular technologist sonographer errors may be present. documented in this encounter [facility] Work Phone: 06-05-2022 History of Present illness Narrative Images from the original note were not included. Hospitalist Progress Note 06/05/2022 [phone]: Please page me ([phone]) for patient care issues. [phone]: Please page IMS night Hospitalist for any [...] MD Division of Hospitalist Medicine Inpatient Medical Services/[facility] PAGER: [phone] CIWA score increasing, orders placed for Ativan [...] ROM Expected Impact [] POA Clarified [] CHILDREN'S TUTOR NURSERY Avoided [] Nursing Function [] Provider Function for [name] [x] Orders Placed [] Symptom Assessment [] Patient Experience [] Patient / Caregiver Conversation Physical Therapy Facility/Department: [facility] Physical Therapy Initial Assessment Name: [...] functional independence and safety with mobility. Rec [facility] PT and assist prn. Therapy Prognosis: Good [...] at home due to poor endurance. Rec [facility] upon discharge. Barriers to Learning: none Requires [...] and/or [facility] Safety Devices Type of Devices: All [...] Ambulation Assistance: Independent Transfer Assistance: Independent Active Single Resource Boss: No Patient's Single Resource Boss Info: Christie Mode of Transportation: Car Education: [...] 10 Krystle Bull PT Occupational Therapy Facility/Department: [facility] Occupational Therapy Initial Assessment Name: [...] above performance deficits. Recommend planned d/c for [facility] OT with assist PRN. Prognosis: Good Decision [...] Ambulation Assistance: Independent Transfer Assistance: Independent Active Single Resource Boss: No Patient's Single Resource Boss Info: Christie Objective Heart Rate: 95 Heart [...] Education Outcome: Verbalized understanding;Demonstrated understanding AM-PAC Score AM-[facility] Inpatient Daily Activity Raw Score: [...] ROM Expected Impact [] POA Clarified [] CHILDREN'S T[facility]OR NURSERY Avoided [] Nursing Function [x] Provider Function for [name] [x] Orders Placed [] Symptom Assessment [] Patient Experience [x] Patient / Caregiver Conversation Physical Therapy Facility/Department: [facility] Name: Woody Ni : 1960 [...] included. Hospitalist Progress Note 06/04/2022 9:54 AM [phone]: Please perfect serve me for patient care issues. [phone]: Please page IMS night Hospitalist for any [...] dehydration. Pt reportedly had a syncopal episode SKI INSTRUCTOR with hypotension. EMS reported that pt had [...] Anthropometric Measures: Height: 5' 10" (177.8 cm) [employer] Body Weight (IBW): 166 lbs (75 kg) [...] Used for Energy Requirements: Current Energy (kcal/day): 9041-6349 kcals (25-30) Weight Used for Protein Requirements: [...] Nutrition Supplement Kristine George RD, LD Contact: *[phone] documented in this encounter [facility] Work Phone: [...] vomiting Persistent vomiting documented in this encounter [facility] Phone: Evaluation note* Diagnosis Abnormal CT [...] liver function study documented in this encounter [facility] note* Diagnosis Hydrops of gallbladder- Primary RUQ pain Abdominal pain, right upper quadrant documented in this encounter [facility] note* Diagnosis History of hepatitis C Personal history of other infectious and parasitic disease documented in this encounter [facility] note* Diagnosis Ascites due to alcoholic cirrhosis (CMS/HCC) (HCC)- Primary documented in this encounter [facility] note* Diagnosis Encounter for postoperative care- Primary Gallbladder sludge 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) documented in this encounter [facility] note* Diagnosis Hyponatremia- Primary Hyposmolality and/or hyponatremia Hyponatremia Hyposmolality and/or hyponatremia Alcohol dependence with unspecified alcohol-induced disorder (HCC) Chronic pain syndrome Myalgia Unspecified myalgia and myositis Acute kidney injury (CMS/HCC) (HCC) documented in this encounter [facility] note* Diagnosis Alcohol withdrawal syndrome without complication (HCC)- Primary Alcohol use disorder Alcohol withdrawal syndrome without complication (HCC) Severe alcohol use disorder (HCC) Severe malnutrition (CMS/HCC) (HCC) Nutritional marasmus documented in this encounter [facility] note* Diagnosis Hyponatremia- Primary Hyposmolality and/or hyponatremia Hyponatremia Hyposmolality and/or hyponatremia DENN[place] (acute kidney injury) (CMS/HCC) (HCC) Severe malnutrition (CMS/HCC) (HCC) Nutritional marasmus documented in this encounter [facility] note* Diagnosis Hyponatremia- Primary Hyposmolality and/or hyponatremia Hyponatremia Hyposmolality and/or hyponatremia Severe alcohol use disorder (HCC) Severe malnutrition (CMS/HCC) (HCC) Nutritional marasmus Recurrent falls [facility] Diagnosis Alcohol induced acute pancreatitis without necrosis or infection- Primary Alcohol induced acute pancreatitis without necrosis or infection Alcohol use disorder, severe, dependence (HCC) Nausea and vomiting, unspecified vomiting type Chronic pain syndrome Alcohol withdrawal syndrome with complication (HCC) Repeated falls Severe alcohol use disorder (HCC) Moderate malnutrition (CMS/HCC) (HCC) [facility]* Diagnosis Severe alcohol use disorder (HCC) [facility]* Diagnosis Alcohol withdrawal syndrome without complication (HCC)- Primary Alcohol withdrawal syndrome without complication (HCC) COVID-19 Leg edema Edema Other pancytopenia (CMS/HCC) (HCC) Other pancytopenia Alcoholic cirrhosis of liver without ascites (CMS/HCC) (HCC) 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, recurrent episode, mild Other pancytopenia (CMS/HCC) (HCC) Other pancytopenia [facility]* Diagnosis Hyponatremia- Primary Hyposmolality and/or hyponatremia Hyponatremia Hyposmolality and/or hyponatremia Alcoholic intoxication without complication (CMS/HCC) (HCC) Alcohol withdrawal syndrome without complication (HCC) High anion gap metabolic acidosis documented in this encounter [facility]* Diagnosis Syncope, unspecified syncope type- Primary Elevated lactic acid level [facility]* Diagnosis Alcohol use disorder- Primary Alcohol use disorder [facility]* Diagnosis Metabolic acidosis, increased anion gap- Primary Metabolic acidosis, increased anion gap Ketosis (HCC) Acidosis Alcohol use Other problems related to lifestyle Hypokalemia Hypopotassemia Hypomagnesemia Disorders of magnesium metabolism documented [facility] this encounter [facility]* Diagnosis Right upper quadrant abdominal pain- Primary Gallbladder sludge Alcoholic cirrhosis of liver without ascites (CMS/HCC) (HCC) [facility]* Diagnosis Preop examination- Primary Unspecified pre-operative examination Right upper quadrant pain Abdominal pain, right upper quadrant Other specified diseases of gallbladder [facility]* Diagnosis Acute kidney injury (CMS/HCC) (HCC)- Primary Acute kidney injury (CMS/HCC) (HCC) DENNYS (acute kidney injury) (CMS/HCC) (HCC) DENNYS (acute kidney injury) (CMS/HCC) (HCC) Right upper quadrant pain Abdominal pain, right upper quadrant Other specified diseases of gallbladder documented in this encounter [facility]* Diagnosis Gallbladder sludge- Primary RUQ pain Abdominal pain, right upper quadrant Right upper quadrant pain Abdominal pain, right upper quadrant Other specified diseases of gallbladder RUQ pain Abdominal pain, right upper quadrant Acute on chronic cholecystitis 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) [facility] Attachments The following attachments cannot be sent through Care Everywhere. * Alcohol Withdrawal Discharge Instructions (Hungarian) [facility] Attachments The following attachments cannot be sent through Care Everywhere. * Syncope (Fainting) (Hungarian) [facility] Outpatient Procedure (Routine) - Pending Review Specialty Diagnoses / Procedures Referred By Magalie lawson Referred To Contact [facility] Diagnoses Abnormal CT scan, stomach History of esophageal varices Procedures EGD DIAGNOSTIC ESOPHAGOGASTRODUODENOS COPY TRANSORAL DIAGNOSTIC Munira Staley PA-C [address] [facility] [place] [address] [facility] [address] [place] [address] Referral ID Status Reason Start Date Expiration Date Visits Requested Visits Authorized [id number] Pending Review Auto-Generat ed Referral 06/25/2022 06/25/2023 1 1 * Diagnostic Procedure Only (Routine) - Pending Review Specialty Diagnoses / Procedures Referred By Magalie lawson Referred To Contact US IMAGING Diagnoses History of hepatitis C Procedures US ABD RT UPPER QUADRANT US ABDOMINAL REAL TIME W/IMAGE LIMITED Munira Staley PA-C [address] [facility] [place] [address] Us Imaging Referral ID Status Reason Start Date Expiration Date Visits Requested Visits Authorized [id number] Pending Review Auto-Generat ed Referral 06/25/2022 07/25/2023 1 1 [facility] Diagnostic Procedure Only (Routine) - Closed Specialty Diagnoses / Procedures Referred By Magalie t Referred To Contact US IMAGING Diagnoses History of hepatitis C Procedures US ABD RT UPPER QUADRANT US ABDOMINAL REAL TIME W/IMAGE LIMITED Munira Staley PA-C [address] [address] Us Imaging Referral ID Status Reason Start Date Expiration Date V isits Requested Visits Authorized [id number] Closed Auto-Generate d Referral 06/25/2022 07/25/2023 1 1 [facility] Summary Purpose Family History No Family [...] Documents on File Type Date Recorded Patient Mathematician Expl anation Advance Directives and Living Will Power of Oncology Account Specialist Documents on File Type Date Recorded Patient Mathematician Expl anation ACP-Advance Directive ACP-Power of Oncology Account Specialist Latest Code Status on File Code Status [...] TO GENERAL SURGERY OFFICE/OUTPATIENT [facility] 60-74 MINUTES Munira Staley PA-C [address] [place] [address] Referral ID Status Reason Start Date Expiration Date Visits Requested Visits Authorized [id number] Authorized PCP Requested Referral 07/08/2022 07/08/2023 1 1 Specialty Diagnoses / Procedures Referred By Contac t Referred To Contact Ced Koenig MD [address], [address] [address] Referral ID Status Reason Start Date Expiration Date Visits Re quested Visits Authorized [id number] Closed 1 1 Specialty Diagnoses / Procedures Referred By Contac t Referred To Contact Genna Castro DO [address] [place] [address] Referral ID Status Reason Start Date Expiration Date Visits Re quested Visits Authorized [id number] Closed 1 1 Additional Source Comments (unrecognized sect ion and content) No Status Records FoundNo Status Records FoundNo Status Records FoundNo Status Records FoundNo Status Records FoundNo Status Records FoundNo Status Records Found INFORMATION SOURCE (unrecogn ized section and content) DATE CREATED AUTHOR 04/14/2018 [facility] DATE CREATED AUTHOR AUTHOR'S ORGANIZ ATION 07/16/2022 [facility] DATE CREATED AUTHOR AUTHOR'S ORGANIZ ATION 10/25/2023 [facility] DATE CREATED AUTHOR AUTHOR'S ORGANIZ ATION 12/30/2023 [facility] DATE CREATED AUTHOR AUTHOR'S ORGANIZ ATION 04/20/2024 [facility] DATE CREATED AUTHOR AUTHOR'S ORGANIZ ATION [facility] DATE CREATED AUTHOR AUTHOR'S ORGANIZ ATION 12/18/2024 [facility] Reason for Visit [...] Vomiting Gas, stomach upset. EGD 05/06/22 at [facility] Reason Comments Results Reason Comments Radiology US Specialty Diagnoses / Procedures Referred By Contac t Referred To Contact US IMAGING Diagnoses History of hepatitis C Procedures US ABD RT UPPER QUADRANT US ABDOMINAL REAL TIME W/IMAGE LIMITED Munira Staley PA-C [address] [place] [address] Us Imaging Referral ID Status Reason Start Date Expiration Date V isits Requested Visits Authorized [id number] Closed Auto-Generate d Referral 06/25/2022 07/25/2023 1 [...] Kacie Benz, DO [address] [place] [address] [facility] 2e Telemetry [address] [place] [address] Referral ID Status Reason Start Date Expiration Date Visits Re quested Visits Authorized [id number] 1 1 Reason Onset Date Comments Hospital Follow-up 02/16/2023 Reason Onset Date Comments Hospital Follow-up 04/05/2023 Reason Comments Alcohol Problem Specialty Diagnoses / Procedures Referred By Contac t Referred To Contact Diagnoses Alcohol withdrawal syndrome without complication (HCC) Alcohol use disorder Procedures . Maxwell Hinson MD [address] [place] [address] [facility] [address] [facility] [address] [place] [address] Referral ID Status Reason Start Date Expiration Date Visits Re quested Visits Authorized [id number] 1 1 Reason Comments Abdominal Pain Specialty Diagnoses / Procedures Referred By Contac t Referred To Contact Diagnoses Hyponatremia Procedures E87.1 Rhiannon Barker MD [address] [facility] [address] [place] [address] [facility] 2e Telemetry [address] [place] [address] Referral ID Status Reason Start Date Expiration Date Visits Re quested Visits Authorized [id number] 1 1 Reason Onset Date Comments Cancelled Appointment 05/26/2023 05/26/2023 at 08;00 Reason Onset Date Comments Advice Only 01/12/2023 Reason Comments Fall Specialty Diagnoses / Procedures Referred By Contac t Referred To Contact Diagnoses Hyponatremia Procedures . Kacie Benz DO [address] [place] [address] [facility] Emergency Dept [address] [place] [address] Referral ID Status Reason Start Date Expiration Date Visits Re quested Visits Authorized [id number] 1 1 Reason Comments Vomiting Pt comes [...] Kacie Benz DO [address] [place] [address] [facility] Emergency Dept [address] [place] [address] Referral ID Status Reason Start Date Expiration Date Visits Re quested Visits Authorized [id number] 1 1 Reason Comments Vomiting Withdrawal Alcohol Specialty Diagnoses / Procedures Referred By Contac t Referred To Contact Diagnoses Alcohol withdrawal syndrome without complication (HCC) Procedures .. Hayes Scott MD [address] [place] [address] [facility] Emergency Dept [address] [place] [address] Referral ID Status Reason Start Date Expiration Date Visits Re quested Visits Authorized [id number] 1 1 Reason Onset Date Comments Med [...] use disorder Procedures - Kiel King MD [address] [place] [address] [facility] [address] [place] [address] Referral ID Status Reason Start Date Expiration Date Visits Re quested Visits Authorized [id number] 1 1 Reason Comments Dizziness Vomiting Alcohol Problem Specialty Diagnoses / Procedures Referred By Contac t Referred To Contact Diagnoses Ketosis (HCC) Alcohol use Metabolic acidosis, increased anion gap Procedures . 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 Reason Onset Date Comments Surgery Scheduling 11/20/2022 Reason Comments Vomiting Specialty Diagnoses / Procedures Referred By Contac t Referred To Contact Diagnoses DENNYS (acute kidney injury) (CMS/HCC) (HCC) Acute kidney injury (CMS/HCC) (HCC) Procedures N17.9 Kacie Benz, DO [address] [place] [address] [facility] Telemetry [address] [place] [phone] Referral ID Status Reason Start Date Expiration Date Visits Re quested Visits Authorized [id number] 1 1 Reason Onset Date Comments Hospital Follow-up 12/27/2022 Specialty Diagnoses / Procedures Referred By Contac t Referred To Contact Diagnoses Right upper quadrant pain Other specified diseases of gallbladder Right upper quadrant pain [R10.11] Other specified diseases of gallbladder [K82.8] Procedures NJ LAPAROSCOPY SURG CHOLECYSTECTOMY LAPAROSCOPIC CHOLECYSTECTOMY, POSSIBLE OPEN Ruperto Fang MD [address] [place] [address] [address] [place] [address] [facility] Main Or [address] [place] [address] Referral ID Status Reason Start Date Expiration Date Visits Re quested Visits Authorized [id number] 1 1 Reason Onset Date Comments Sinusitis [...] Other - Comment: ok to hold per [facility])1236 (Held by provider - Provider: [...] Pat RN)1700 (Due - Provider: Yazmin Bermudez [facility]) pantoprazole (PROTONIX) tablet 40 mg 40 mg, [...] needed. 1815 (See Alternative - Provider: Gibran aMhajan RN) 0002 (See Alternative - Provider: Monica [...] Cancino RN) 0918 (Given - Provider: Melinda iNxon RN)1628 (Given - Provider: Melinda Nixon RN)2126 [...] Erika Fowler RN)1617 (Given - Provider: Erika Folwer RN) potassium chloride CR (Klor-Con M10) ER [...] sedation for opioid reversal - MUST notify power generation equipment repairer provider immediately after first dose, may give [...] Provider: Mónica Anders RN)2134 (Given - Provider: aDniel Weinstein RN) 0345 (Given - Provider: Daniel [...] 1 dose 0201 (Given - Provider: Tiny aYng RN) folic acid (Folvite) tablet 1 mg 1 mg, Oral, Daily, First dose on Thu01/15/24 at 1930 0852 (Given - Provider: aRya Zavala RN) 0957 (Given - Provider: Monica [...] vomiting, Starting on Thu01/19/24 at 1255, Give NJ if patient is unable to take orally. [...] vomiting, Starting on Thu01/19/24 at 1255, Give NJ if patient is unable to take orally. [...] in 24 hours. 0333 (Given - Provider: Daina Chisholm RN)1545 (Given - Provider: Edilberto Grove [...] Shane RN)1508 (Held by provider - Provider: ELAH Matias CNP - Reason: Change in vital [...]
Care Teams (unrecognized sec tion and content) Service Parts Driver Relationship Specialty Start Date End Date Jani Quezada MD PCP - General 09/06/15 Service Parts Driver Relationship Specialty Start Date End Date Jani Quezada MD PCP - General 09/06/15 Service Parts Driver Relationship Specialty Start Date End Date Jani Quezada [address] [place] [address] PCP - General Internal Medicine 05/26/17 Service Parts Driver Relationship Specialty Start Date End Date Jani Quezada [address] [place] [address] PCP - General Internal Medicine 05/26/17 Service Parts Driver Relationship Specialty Start Date End Date Jani Quezada [address] [place] [address] PCP - General Internal Medicine 05/26/17 Service Parts Driver Relationship Specialty Start Date End Date Jani Quezada [address] [place] [address] PCP - General 09/06/15 Aan Callaway MD [address] [place] [address] Gastroenterology 11/07/22 Service Parts Driver Relationship Specialty Start Date End Date Jani Quezada [address] [place] [address] PCP - General 09/06/15 Ana Callaway MD [address] [place] [address] Gastroenterology 11/07/22 Service Parts Driver Relationship Specialty Start Date End Date Jani Quezada [address] [place] [phone] PCP - General 09/06/15 Ana Callaway MD [address] [place], [place] [phone] Gastroenterology 11/07/22 Service Parts Driver Relationship Specialty Start Date End Date Jani Quezada [address] [place] [address] PCP - General 09/06/15 Ana Callaway MD [address] [facility] [address] [place], [place] [phone] Gastroenterology 11/07/22 Service Parts Driver Relationship Specialty Start Date End Date Jani Quezada [address] [place] [address] PCP - General 09/06/15 Ana Callaway MD [address] [facility] [address] [place], [place] [phone] Gastroenterology 11/07/22 Service Parts Driver Relationship Specialty Start Date End Date Jani Quezada [address] [place] [phone] PCP - General 09/06/15 Ana Callaway MD [address] [facility] [address] [place], [place] [phone] Gastroenterology 11/07/22 Service Parts Driver Relationship Specialty Start Date End Date Jani Quezada [address] [place] [address] PCP - General 09/06/15 Ana Callaway MD [address] [place] [address] Gastroenterology 11/07/22 Service Parts Driver Relationship Specialty Start Date End Date Jani Quezada [address] [place] [phone] PCP - General 09/06/15 Ana Callaway MD [address] [place] [address] Gastroenterology 11/07/22 Service Parts Driver Relationship Specialty Start Date End Date Jani Quezada [address] [place] [phone] PCP - General 09/06/15 Ana Callaway MD [address] [place] [address] Gastroenterology 11/07/22 Service Parts Driver Relationship Specialty Start Date End Date Jani Quezada [address] [place] [address] PCP - General 09/06/15 Ana Callaway MD [address] [place] [address] Gastroenterology 11/07/22 Service Parts Driver Relationship Specialty Start Date End Date Jani Quezada [address] [place] [address] PCP - General 09/06/15 Ana Callaway MD [address] [place], [place] [phone] Gastroenterology 11/07/22 Lea Koehler, forensics analystColor Expert Manufacturing [employer] 04/16/2303/20 Service Parts Driver Relationship Specialty Start Date End Date Jani Quezada [address] [place] [address] PCP - General 09/06/15 Ana Callaway MD [address] [place], [place] [phone] Gastroenterology 11/07/22 Service Parts Driver Relationship Specialty Start Date End Date Jani Quezada [address] [place] [address] PCP - General 09/06/15 Ana Callaway MD [address] [place], [place] [phone] Gastroenterology 11/07/22 Service Parts Driver Relationship Specialty Start Date End Date Jani Quezada [address] [place] [address] PCP - General 09/06/15 Ana Callaway MD [address] [place], [place] [phone] Gastroenterology 11/07/22 Service Parts Driver Relationship Specialty Start Date End Date Jani Quezada [address] [place] [address] PCP - General 09/06/15 Ana Callaway MD [address] [place] [address] Gastroenterology 11/07/22 Service Parts Driver Relationship Specialty Start Date End Date Jani Quezada [address] [place] [address] PCP - General 09/06/15 Ana Callaway MD [address] [place], [place] [phone] Gastroenterology 11/07/22 Service Parts Driver Relationship Specialty Start Date End Date Jani Quezada [address] [place] [address] PCP - General 09/06/15 Ana Callaway MD [address] [place] [address] Gastroenterology 11/07/22 Service Parts Driver Relationship Specialty Start Date End Date Jani Quezada [address] [place] [address] PCP - General 09/06/15 Ana Callaway MD [address] [place], [place] [phone] Gastroenterology 11/07/22 Service Parts Driver Relationship Specialty Start Date End Date Jani Quezada [address] [place] [address] PCP - General 09/06/15 Ana Callaway MD [address] [place] [address] Gastroenterology 11/07/22 Service Parts Driver Relationship Specialty Start Date End Date Jani Quezada [address] [place] [address] PCP - General 09/06/15 Ana Callaway MD [address] [place] [address] Gastroenterology 11/07/22 Service Parts Driver Relationship Specialty Start Date End Date Jani Quezada [address] [place] [address] PCP - General 09/06/15 Ana Callaway MD [address] [place] [address] Gastroenterology 11/07/22 Service Parts Driver Relationship Specialty Start Date End Date Jani Quezada [address] [place] [phone] PCP - General 09/06/15 Ana Callaway MD [address] [place] [address] Gastroenterology 11/07/22 Service Parts Driver Relationship Specialty Start Date End Date Jani Quezada [address] [place] [address] PCP - General 09/06/15 Ana Callaway MD [address] [place] [address] Gastroenterology 11/07/22 Service Parts Driver Relationship Specialty Start Date End Date Jani Quzeada [address] [place] [phone] PCP - General 09/06/15 Ana Callaway MD [address] [place] [address] Gastroenterology 11/07/22 Service Parts Driver Relationship Specialty Start Date End Date Jani Quezada [address] [place] [address] PCP - General 09/06/15 Ana Callaway MD [address] [place] [address] Gastroenterology 11/07/22 Service Parts Driver Relationship Specialty Start Date End Date Jani Quezada [address] [place] [address] PCP - General 09/06/15 Ana Callaway MD [address] [place] [address] Gastroenterology 11/07/22 Service Parts Driver Relationship Specialty Start Date End Date Jani Quezada [address] [place] [address] PCP - General 09/06/15 Ana Callaway MD [address] [facility] [address] [place] [address] Gastroenterology 11/07/22 Service Parts Driver Relationship Specialty Start Date End Date Bryant Jani [address] [place] [address] PCP - General 09/06/15 Ana Callaway MD [address] [facility] [address] [facility] [address] [place], [place] [phone] Gastroenterology 11/07/22 Service Parts Driver Relationship Specialty Start Date End Date ChrisJani kidd [address] [place] [address] PCP - General 09/06/15 Ana Callaway MD 1 [facility] [address] [place] [address] Gastroenterology 11/07/22 Service Parts Driver Relationship Specialty Start Date End Date ChrisJani kidd [address] [place] [address] PCP - General 09/06/15 Ana Callaway MD 1 [facility] [address] [place] [address] Gastroenterology 11/07/22 Service Parts Driver Relationship Specialty Start Date End Date ChrisJani kidd [address] [place] [address] PCP - General 09/06/15 Ana Callaway MD [address] [facility] [address] [facility] [address] [place] [address] Gastroenterology 11/07/22 Service Parts Driver Relationship Specialty Start Date End Date Jani Quezada [address] [place] [address] PCP - General 09/06/15 Ana Callaway MD [address] [place] [address] Gastroenterology 11/07/22 Service Parts Driver Relationship Specialty Start Date End Date Jani Quezada [address] [place] [address] PCP - General 09/06/15 Ana Callaway MD [address] [place], [place] [phone] Gastroenterology 11/07/22 Service Parts Driver Relationship Specialty Start Date End Date Jani Quezada [address] [place] [phone] PCP - General 09/06/15 Ana Callaway MD [address] [place] [address] Gastroenterology 11/07/22 Service Parts Driver Relationship Specialty Start Date End Date Jani Quezada [address] [place] [phone] PCP - General 09/06/15 Ana Callaway MD [address] [place] [address] Gastroenterology 11/07/22 Service Parts Driver Relationship Specialty Start Date End Date Jani Quezada [address] [place] [phone] PCP - General 09/06/15 Ana Callaway MD [address] [place] [address] Gastroenterology 11/07/22 Service Parts Driver Relationship Specialty Start Date End Date Jani Quezada [address] [place] [phone] PCP - General 09/06/15 Ana Callaway MD 1 [facility] [address] [place], [place] [phone] Gastroenterology 11/07/22 Service Parts Driver Relationship Specialty Start Date End Date Jani Quezada [address] [place] [phone] PCP - General 09/06/15 Ana Callaway MD 1 [facility] [address] [place], [place] [phone] Gastroenterology 11/07/22 Source Comments (unrecognize d section and content) In the event this informatio n is protected by the Federal Confidentiality of Alcohol and Drug Abuse Patient Records regulations: The Federal rules restrict any use of the information to criminally investigate or prosecute any alcohol or drug abuse patient.[facility] the event this information is protected by the Federal Confidentiality of Alcohol and Drug Abuse Patient Records regulations: The Federal rules restrict any use of the information to criminally investigate or prosecute any alcohol or drug abuse patient.[facility] the event this information is protected by the Federal Confidentiality of Alcohol and Drug Abuse Patient Records regulations: The Federal rules restrict any use of the information to criminally investigate or prosecute any alcohol or drug abuse patient.[facility] the event this information is protected by the Federal Confidentiality of Alcohol and Drug Abuse Patient Records regulations: The Federal rules restrict any use of the information to criminally investigate or prosecute any alcohol or drug abuse patient.[facility] FOR RECORDS PERTAINING TO PATIENTS WHO [...] BE BASED ON THE PRIMARY CLINICAL RECORDS. [facility] [employer] [facility]. provides no warranty or guarantee of the accuracy or completeness of information in this document.
[2025-05-08 02:29] LABS: FOLATES,SERUM (FOLIC ACID) 6.23 ng/mL (4.60-34.80)
--- OUTSIDE RECORDS SUMMARY | 2025-05-08 02:29 | XMS RPT_ITS | CCD ---
Author Organization [facility] Care Team Providers Care Research Leader Name Role Phone ABEL HOLDER Unavailable Unavailable NEISHA REYES Unavailable Unavailable ABEL HOLDER Unavailable Unavailable ABEL HOLDER Unavailable Unavailable JADA OCONNOR () Unavailable Unavailable Jani Quezada Primary Care Provider [phone] Jani Quezada Primary Care Provider Jani Quezada MD Primary Care Provider [phone] Jani Quezada Primary Care Provider Jani Quezada Referring Unavailable Hany Jones Attending Unavailable Jani Quezada Primary Care Unavailable Arturo Atkinson Attending Unavailable Jani Quezada Referring Unavailable Jani Quezada Primary Care Unavailable Jani Quezada Primary Care Provider [phone] Ana Callaway MD Unavailable Jani Quezada Primary Care Provider [phone] Ana Callaway MD Unavailable Zakia BRODERICK, Lea Unavailable Unavailable JANI QUEZADA Primary Care Unavaila JANI Serna Referring Unavaila MUNIRA Martin Attending Unavailable MUNIRA STALEY Referring Unavailable JANI QUEZADA Primary Care UnavailMUNIRA Nuñez Referring Unavailable JANI QUEZADA Primary Care Unavaila MUNIRA Martin Referring Unavailable JANI QUEZADA Primary Care Unavaila YUE Sosa Attending Unavaila JANI Serna Primary Care Unavailable Kevin Ramires Attending Unavailabl Jani Gallardo Primary Care Unavailable Ruddy Galdamez Admitting Unavailable Jopperi, Ruddy Consulting Unavailable Katsaros, Peter Primary Care Unavailable Richie Ayala Attending Unavailable Wilber Jaeger Consulting Unavailable Isaiaseri, Ruddy Admitting Unavailable Rudolph, Ruddy Consulting Unavailable Wilber Jaeger Attending Unavailable Katsaros, Peter Primary Care Unavailable Heide, Wilber Consulting Unavailable Richie Ayala Attending Unavailable Richie Ayala F Consulting Unavailable Katsaros, Peter Primary Care Unavailable Ghulam, Cody Attending Unavailable Ghulam, Cody Consulting Unavailable Ghulam, Cody Admitting Unavailable Tommy Walshyn Attending Unavailable Nico Zulma Consulting Unavailable IsaiaseriPatriciaic Attending Unavailable Katsaros, Peter Primary Care Unavailable Ghulam, Cody Consulting Unavailable Ghulam, Cody Admitting Unavailable NicoKimZulma Attending Unavailable Katsaros, Peter Primary Care Unavailable Rosa Guevara Attending Unavailable Katsaros, Peter Primary Care Unavailable Gudla Rosa SALES Attending Unavailable Katsaros, Peter Primary Care Unavailable Daniel Knapp Attending Unavailable KATSAROS, PETER Primary Care Unavailable LISA GARG Admitting Unavailable EMILIANO CHURCH Attending Unavailable NIR CRUZ Consulting Unavailable KATSAROS, PETER Primary Care Unavailable KIEL KING Admitting Unavailable CARMEN JERONIMO Consulting Unavailable ARYA, CED Attending Unavailable KATSAROS, PETER Primary Care Unavailable HAYES SCOTT Admitting Unavailable KINGSLEY WHITE Consulting Unavailable JOSE MARIA ABAD Attending Unavailable QUYNH MCKEON Referring Unavailable KATSAROS, PETER Primary Care Unavailable TONYA, HAYES Admitting Unavailable JOSÉ LUIS PEREZ Consulting Unavailable [...] Referring Unavailable KATSAROS, PETER Primary Care Unavailable Katsaros MD, Dr. Heaton Primary Care Provider [phone] Dr. Eddy Haddad MD Emergency Provider Dr. Oksana Vázquez DO Admit Provider Unavail able Dr. Oksana Vázquez DO Attending Provider Unav ailable Allergies Allergy Classification Reported Allergen(s) Allergy Type Date of Onset Reaction(s) Facility Allopurinol (1 source) Allopurinol Drug Allergy 7 Other [facility] Opioid Agonists (1 source) Codeine Drug Allergy 3 Nausea Only [facility] Penicillins (antibiotic) (1 source) Penicillin G Drug Allergy 7 Swelling [facility] (20 sources) allopurinol; Translations: [ALLOPURINOL] Drug Allergy 7 Other: See Comments, Other [facility] (6 sources) penicillin; Translations: [PENICILLIN] Drug Allergy 7 Swelling [facility] (6 sources) Penicillins; Translations: [PENICILLINS] Propensity to adverse reactions to drug 7 [place], [place] (20 sources) Penicillin G Drug Allergy 7 Swelling [facility] (20 sources) Codeine; Translations: [CODEINE] Drug Allergy 3 Nausea Only [facility] (1 source) Codeine Drug Allergy [address] [facility] Repository (1 source) Penicillins Drug allergy (disorder) [address] [facility] Repository (4 sources) Lactose (non-medical use) Propensity to adverse reactions 4 [facility] (1 source) Penicillins Allergy to substance [address] [facility] Medications Current Medications Medication Drug Class(es) [...] every 6 hours as needed for Pain. dicyclomine hydrochloride 20 mg oral tablet (20 sources) Anticholinergic Start: 05-08-20 take 1 tablet by mouth three times daily Dicyclomine 20 mg tablet Active 20 mg PO THREE TIMES A DAY May 08, 2025 12:00am CRAMPS Start: 05-16-2024 End: 07-10-2024 take 1 tablet by mouth three times daily dicyclomine (Bentyl) 20 MG tablet Indications: Irritable Bowel Syndrome Take 20 mg by mouth 3 times daily. 05/16/2024 Suspended Start: 04-05-2024 End: 04-08-2024 take 1 tablet by mouth three times daily Dicyclomine 20 mg tablet Discontinued 20 mg PO THREE TIMES A DAY April 05, 2024 12:00am April 08, 2024 1:47pm Start: 10-20-2023 End: 10-27-2023 take 20 mg [...] meals. 90 tablet 1 11/07/2022 11/07/2023 Active hydrOXYzine pamoate 50 mg oral capsule (20 sources) Antihistamine Start: 05-08-2025 take 1 capsule by mouth every six hours as needed for anxiety Hydroxyzine Pamoate 50 mg capsule Active 50 mg PO EVERY 6 HOURS NEEDED as needed for ITCHING/ANXIETY May 08, 2025 12:00am Start: 05-24-2024 End: 05-08-2025 take 1 tablet by mouth every six hours as needed Hydroxyzine Hcl 25 mg tablet Discontinued 25 mg PO EVERY 6 HOURS as needed for itching May 24, 2024 12:00am May 08, 2025 1:48am Start: 04-28-2024 End: 04-30-2024 take 1 capsule by mouth every six hours as needed for anxiety 25 mg, Oral, Every 6 hours PRN, itching, anxiety, Starting on [facility] 04/28/24 at 1833 Start: 04-05-2024 End: 05-26-2024 Hydroxyzine Pamoate 25 mg ca psule Discontinued 50 mg PO TWICE A DAY 6 0 April 08, 2024 1:47pm May 26, 2024 10:50am Start: 04-05-2024 End: 04-30-2024 take 1 tablet by mouth every six hours as needed Hydroxyzine Hcl 25 mg tablet Discontinued 25 mg PO EVERY 6 HOURS as needed for itch April 05, 2024 12:00am April 08, 2024 1:42pm Start: 01-20-2024 End: 02-05-2024 take 1 capsule [...] anxiety hydrOXYzine pamoate (Vistaril) capsule 50 mg levothyroxine sodium 0.075 mg oral tablet (20 sources) l-Thyroxine Start: 07-22-2024 End: 07-22-2025 take 1 tablet by mouth once daily Levothyroxine 75 mcg tablet Active 75 ug PO DAILY May 08, 2025 12:00am THYROID Start: 04-08-2024 End: 05-26-2024 take 75 ug by mouth once daily before breakfast 75 mcg, Oral, Daily before breakfast, First dose on 04/23/24 at 0600, Tube feeding (TF) interaction, obtain physician order to manage, recommend holding TF for 30 minutes before and after dose. Start: 10-21-2023 End: 10-27-2023 take 50 ug [...] 30 minutes before and after dose. Start: 02-11-2023 End: 02-14-2023 take 50 ug [...] 30 minutes before and after dose. Start: 11-11-2022 End: 04-08-2024 levothyroxine (Synthroid, Le voxyl) tablet 75 mcg Start: 10-14-2022 End: 11-06-2022 take 1 tablet [...] Step 1) 21 MG/24HR patch 1 patch nitroglycerin 0.4 mg sublingual tablet (20 sources) Nitrate Vasodilator Start: 04-03-2023 End: 04-07-2023 0.4 mg, SubLINGual, Every 5 min PRN, chest pain, Starting on Thu04/03/23 at 0951 May administer up to 3 doses per episode. Start: 11-11-2022 End: 04-08-2024 Nitroglycerin (Nitrostat) 0. 4 mg tablet, sublingual Active 0.4 mg SL Q5M as needed for chest pain 3 0 April 08, 2024 1:47pm do not exceed 3 doses per episode End: 07-05-2024 nitroglycerin (Nitrostat) 0. 4 MG SL tablet 1 tab(s) sublingually every 5 minutes x 3 doses prn 07/05/2024 Discontinued nystatin 174256 unt/ml topical cream (4 sources) Polyene Antifungal Start: 01-20-2024 End: 02-19-2024 nystatin (Mycostatin) cream Apply topically 2 times daily. 30 g 0 01/20/2024 02/19/2024 Active Start: 01-15-2024 End: 01-25-2024 nystatin (Mycostatin) cream omeprazole 40 mg delayed release oral capsule (1 source) Proton Pump Inhibitor Start: 05-08-2025 take 1 capsule by mouth once daily Omeprazole 40 mg capsule,delayed release(DR/EC) Active 40 mg PO DAILY May 08, 2025 12:00am STOMACH ondansetron 8 mg oral tablet (20 sources) Serotonin-3 Receptor Antagonist Start: 05-08-2025 take 1 tablet by mouth every eight hours as needed for nausea and vomiting Ondansetron Hcl 8 mg tablet Active 8 mg PO EVERY 8 HOURS NEEDED as needed for nausea and vomiting May 08, 2025 12:00am Start: 01-15-2024 End: 01-15-2024 ondansetron (Zofran) injecti on 4 mg Start: 10-20-2023 End: 10-20-2023 ondansetron [...] ondansetron (Zofran) injecti on 4 mg Start: 02-10-2023 End: 02-10-2023 ondansetron [...] ondansetron (Zofran) injecti on 4 mg Start: 11-11-2022 End: 05-08-2025 take 1 tablet by mouth every six hours as needed for nausea and vomiting ondansetron ODT (Zofran-ODT) disintegrating tablet 4 mg Start: 06-05-2022 ondansetron (Z OFRAN) [...] 4 mg by mouth a s needed. pravastatin sodium 80 mg oral tablet (20 sources) HMG-CoA Reductase Inhibitor Start: take 1 tablet by mouth at bedtime Pravastatin 80 mg tablet Active 80 mg PO AT BEDTIME May 08, 2025 12:00am CHOLESTEROL Start: 06-14-2024 End: 07-05-2024 take 1 tablet by mouth once daily at bedtime pravastatin (Pravachol) 40 MG tablet 1 tab(s) orally once a day (at bedtime) 90 days 06/14/2024 07/05/2024 Discontinued (Therapy completed) Start: 06-04-2022 take 20 mg by mouth once daily 20 mg, Oral, NIGHTLY, First dose on Thu06/04/22 at 2100, Until Discontinued Start: 04-30-2017 End: 05-26-2024 take 1 tablet by mouth once daily Pravastatin 40 mg tablet Discontinued 40 mg PO DAILY 3 0 April 08, 2024 1:47pm May 26, 2024 10:51am Comment on above: Take 40 mg by mouth once daily. prazosin 5 mg oral capsule (1 source) alpha-Adrenergic Barbara Start: End: take 1 capsule by mouth once daily prazosin (Minipress) 5 MG capsule Indications: Nightmares Take 1 capsule (5 mg) by mouth Nightly. 30 capsule 08/01/2024 08/01/2025 Active QUEtiapine 100 mg oral tablet (1 source) Atypical Antipsychotic Start: take 1 tablet by mouth three times daily QUEtiapine (SEROquel) 100 MG tablet Indications: anxiety Take 1 tablet (100 mg) by mouth 3 times daily. 90 tablet 08/01/2024 Active sertraline 50 mg oral tablet (20 sources) Serotonin Reuptake Inhibitor Start: take 3 tablets by mouth once daily [...] on 07/09/24 at 0900 Start: 04-25-2024 End: 05-08-2025 take 1 tablet by mouth once daily Sertraline 50 mg tablet Discontinued 50 mg PO DAILY May 03, 2024 12:00am May 08, 2025 1:48am Start: 03-09-2024 End: 03-09-2024 sertraline (Zoloft) tablet [...] oral capsule (20 sources) alpha-Adrenergic Barbara Start: 05-08-2025 take 1 capsule by mouth once daily Tamsulosin 0.4 mg capsule Active 0.4 mg PO DAILY May 08, 2025 12:00am URINE Start: 06-25-2020 End: 07-10-2024 take 1 capsule by mouth once daily Tamsulosin 0.4 mg capsule Discontinued 0.4 mg PO DAILY 3 0 April 08, 2024 1:47pm May 03, 2024 12:01am End: 01-28-2023 tamsulosin (Flomax) 0.4 MG 2 4 hr capsule Every 24 hours. 0 01/28/2023 Discontinued tiZANidine 4 mg oral tablet (20 sources) Central alpha-2 Adrenergic Agonist Start: 01-20-2024 End: 05-08-2025 take 1 tablet by mouth every six hours as needed Tizanidine 4 mg tablet Active 4 mg PO EVERY 6 HOURS as needed for muscle spasticity May 08, 2025 12:00am traZODone hydrochloride 50 mg oral tablet (3 [...] 0 04/15/2023 Discontinued (Stop taking at discharge) [id number] 200 actuat albuter ol 0.09 mg/actuat metered dose inhaler (20 sources) beta2-Adrenergic Agonist Start: 07-05-2024 End: 07-10-2024 Start: 05-02-2024 Albuterol Sulf ate 90 mcg/actuation HFA aerosol inhaler Active 2 NMA INHALATION EVERY 6 HOURS NEEDED as needed for shortness of breath or wheezing May 02, 2024 12:00am Start: 04-22-2024 End: 04-30-2024 Start: 10-20-2023 End: [...] breath, Starting on Thu12/23/22 at 0055 Start: 11-11-2022 End: 04-08-2024 Albuterol Sulfate 90 mcg/act uation HFA aerosol inhaler Discontinued 1 NMA INHALATION ONCE November 11, 2022 1:00am April 08, 2024 1:41pm Start: 06-04-2022 take 2 puff(s) by in [...] 07-21-2024 take 1 tablet by mouth once Alendronate (Fosamax) 70 mg tablet Discontinued 70 mg PO MO November 11, 2022 1:00am May 21, 2024 10:06pm Comment on above: Take 70 mg by [...] on Thu04/03/23 at 1000 Start: 05-27-2017 End: 04-08-2024 take 1 tablet by mouth once daily Amlodipine 2.5 mg tablet Discontinued 2.5 mg PO DAILY November 11, 2022 1:00am April 08, 2024 1:47pm Start: 04-27-2017 End: 06-06-2022 take 10 mg by mouth once daily 10 mg, Oral, DAILY, Fir st dose on Thu06/04/22 at 0900, Until Discontinued Comment on above: Take 2.5 mg by mouth once daily. Arthritis Pain Compound (1 source) Start: 05-26-2024 End: 05-08-2025 Arthritis Pain Compound Discontinued 2 NMA topical TWICE DAILY NEEDED as needed 0 0 May 26, 2024 12:00am May 08, 2025 1:47am betamethasone 0.5 mg/ml / clotrimazole 10 mg/ml [...] 0.6 mg oral tablet (20 sources) Start: 05-16-2017 End: 04-08-2024 take 1 tablet by mouth three times [...] sources) Nonsteroidal Anti-inflammatory Drug Start: 024 End: 2 g, Topical, 2 times daily, First dose on Thu04/28/24 at 1330, Apply to affected area Start: 01-20-2024 End: 02-19-2024 Diclofenac Sodium (Voltaren) 1 % gel Apply 4 g topically 2 times daily. 240 g 0 01/20/2024 02/19/2024 Active Start: 01-19-2024 End: 01-25-2024 Diclofenac Sodium (Voltaren) 1 % gel 4 g diphenhydrAMINE hydrochloride 50 mg oral capsule (17 [...] Take 20 mg by mouth twice daily. famotidine 20 mg oral tablet (20 sources) Histamine-2 Receptor Antagonist Start: 024 End: 025 take 1 tablet by mouth at bedtime as needed for gastroesophageal reflux disease Famotidine 20 mg tablet Discontinued 20 mg PO AT BEDTIME NEEDED as needed for GERD May 03, 2024 12:00am May 08, 2025 1:47am Start: 04-13-2023 End: 04-14-2024 take 1 tablet by mouth at bedtime as needed Famotidine 20 mg tablet Discontinued 20 mg PO AT BEDTIME as needed for stomach upset April 05, 2024 12:00am April 08, 2024 1:42pm Start: 04-02-2023 End: 04-02-2023 famotidine (Pepcid) injectio n 20 mg Start: 01-05-2023 End: 01-05-2023 famotidine (Pepcid) tablet 2 0 mg 2 ml fentaNYL 0.05 mg/ml injection (4 [...] LONASE) 50 mcg/actuation nasal spray Use 1 [place] in the nose once daily as needed. 0 04/27/2017 Active End: 01-28-2023 fluticasone (Flonase) 50 MCG /ACT nasal spray Every 24 hours. 0 01/28/2023 Discontinued (Duplicate order) Comment on above: Use 1 [place] in the n ose once daily as [...] oral tablet (20 sources) Loop Diuretic Start: 11-11-2022 End: 05-21-2024 take 1 tablet by mouth once daily Furosemide 20 mg tablet Discontinued 20 mg PO DAILY 3 0 April 08, 2024 1:47pm May 21, 2024 10:07pm Start: 05-18-2017 End: 02-14-2023 take 2 tablets [...] % infusion 0.5 ml heparin sodium, porcine 28600 unt/ml prefilled syringe (2 sources) Unfractionated Heparin, [...] for hypertension hydrALAZINE (Apresoline) injection 10 mg insulin lispro 100 unt/ml injectable solution (7 [...] medicated shampoo (20 sources) Azole Antifungal Start: 05-24-2024 End: 05-08-2025 Ketoconazole 2 % shampoo Discontinued 1 NMA TOPICAL DAILY NEEDED May 24, 2024 12:00am May 08, 2025 1:48am HEAD SORES Start: 11-18-2019 End: 07-05-2024 ketoconazole (NIZOral) 2 % s hampoo EVERY THREE DAYS 11/18/2019 07/05/2024 Discontinued (Therapy [...] loratadine 10 mg oral tablet (20 sources) Start: 11-11-2022 End: 05-26-2024 take 1 tablet by mouth once daily Loratadine 10 mg tablet Discontinued 10 mg PO DAILY 3 0 April 08, 2024 1:47pm May 26, 2024 10:51am End: 02-10-2023 loratadine (Claritin) 10 MG tablet [...] take 1 tablet by mouth once daily Losartan 100 mg tablet Discontinued 100 mg PO DAILY April 05, 2024 12:00am April 08, 2024 1:47pm Start: 02-11-2023 End: 02-14-2023 losartan (Cozaar) tablet [...] on Thu12/23/22 at 0800 Start: 05-21-2017 End: 05-26-2024 take 1 tablet by mouth twice daily Metformin 500 mg tablet Discontinued 500 mg PO TWICE A DAY 6 0 April 08, 2024 1:47pm May 26, 2024 10:51am Start: 05-21-2017 End: 02-14-2023 take 2 tablets by mouth once daily at breakfast metFORMIN (Glucophage) 500 MG tablet Take 1,000 mg by mouth daily (with breakfast). 0 05/21/2017 02/14/2023 Discontinued (Stop taking at discharge) End: 11-06-2022 metFORMIN (Glucophage) 500 M G [...] End: 08-08-20 take 1 tablet by mouth at bedtime Mirtazapine 15 mg tablet Discontinued 15 mg PO AT BEDTIME April 05, 2024 12:00am April 08, 2024 1:47pm 1 ml morphine sulfate 4 mg/ml cartridge [...] Every 24 hours. 07/05/2024 Discontinued (Therapy completed) olmesartan medoxomil 40 mg oral tablet (20 sources) Angiotensin 2 Receptor Barbara Start: 05-03-2024 End: 05-26-2024 take 1 tablet by mouth once daily Olmesartan 40 mg tablet Discontinued 40 mg PO DAILY May 03, 2024 12:00am May 26, 2024 10:51am Start: 10-14-2022 End: 04-08-2024 take 1 tablet by mouth once daily olmesartan (BENIcar) 40 MG tablet Take 40 mg by mouth daily. 0 03/30/2023 01/26/2024 Discontinued (Stop taking at discharge) Start: 10-14-2022 End: 02-14-2023 olmesartan (BENIcar) 40 MG t ablet Every 24 hours. 0 10/14/2022 02/14/2023 Discontinued (Stop taking at discharge) ondansetron ODT (Zofran-ODT) disintegrating tablet 4 mg (15 sources) Start: 07-05-2024 End: 07-10-2024 take 1 tablet by mouth every eight [...] (Roxicodone) immediate release tablet 10 mg Start: 11-11-2022 End: 04-05-2024 take 1 tablet by mouth every six hours as needed Oxycodone 10 mg tablet Discontinued 10 mg PO EVERY 6 HOURS as needed 0 November 11, 2022 1:00am April 05, 2024 4:09pm Start: 06-04-2022 oxyCODONE (AMISHA ICODONE) immediate release [...] tablet (20 sources) Proton Pump Inhibitor Start: End: take 1 tablet by mouth in the morning pantoprazole (ProtoNix) 40 MG EC tablet Take 1 tablet (40 mg) by mouth in the morning and 1 tablet (40 mg) in the evening. Take before meals. Do not crush, chew, or split.. 10/27/2023 07/05/2024 Discontinued (Therapy completed) Start: 11-22-2019 End: 07-10-2024 take 1 tablet by mouth once daily Pantoprazole 40 mg tablet,delayed release (DR/EC) Discontinued 40 mg PO DAILY 3 0 April 08, 2024 1:47pm May 26, 2024 10:51am End: 01-28-2023 pantoprazole (ProtoNix) 40 M G EC tablet [...] 60 mg/min in adults. polyethylene glycol 3350 44241 mg powder for oral solution (16 sources) [...] 4 doses, Total dose: 40 mEq Start: 05-03-2024 take 1 tablet by remy once daily in the morning potassium chloride [...] release tablet 20 mEq Start: 03-30-2017 End: 04-08-2024 take 1 capsule by mouth once daily Potassium Chloride 10 mEq capsule, extended release Discontinued 10 meq PO DAILY November 11, 2022 1:00am April 08, 2024 1:47pm End: 01-28-2023 potassium chloride CR (Klor- Con) 10 MEQ ER tablet Every 24 hours. 0 01/28/2023 Discontinued End: 11-06-2022 potassium chloride CR (Klor- Con M10) 10 MEQ ER tablet Every 24 hours. 0 11/06/2022 Discontinued Comment on above: Take 10 mEq by mouth once daily. 1000 ml potassium chloride 0.02 meq/ml / sodium chloride 9 mg/ml injection (2 sources) Start: 4 End: 4 take 125 mL intravenously every hour 125 mL/hr, IntraVENous, Continuous, Starting on Thu07/05/24 at 0145 predniSONE 20 mg oral tablet (19 sources) Start: 3 End: 4 take 1 tablet by mouth twice daily [...] Thu04/22/24 at 2300, For 14 hours Start: 04-05-2024 End: 04-08-2024 take 1 tablet by mouth twice daily Sodium Chloride 1,0 00 mg tablet,soluble Discontinued 1000 mg PO TWICE A DAY April 05, 2024 12:00am April 08, 2024 1:46pm Start: 04-04-2024 End: 04-04-2024 1,000 mL, IntraVENous, [...] 1 tablet by remy th once daily thiamine 100 MG tablet Take [...] without ascites; Translations: [Chronic alcoholic hepatitis] Onset: 7 Chronic Alcohol-related disorders (12 sources) Alcohol intoxication; Translations: [Alcohol use, unspecified with intoxication, uncomplicated] Onset: 2 Episodic Allergic reactions (4 sources) Allergy status to penicillin; Translations: [Allergy status to other drugs, medicaments and biological substances status] Onset: 2 Episodic Anxiety disorders (5 sources) Anxiety disorder, unspecified; Translations: [Chronic post-traumatic stress disorder] Onset: 2 Chronic Asthma (20 sources) Unspecified asthma, uncomplicated; Translations: [Asthma] Onset: 7 08-26-2017 Chronic Calculus of urinary tract (2 sources) Calculus of kidney; Translations: [Calculus of kidney] Onset: 2 Episodic Coagulation and hemorrhagic disorders (2 sources) Thrombocytopenic disorder; Translations: [Thrombocytopenia, unspecified] 05-08-2025 Chronic Deficiency and other anemia (5 sources) Other pancytopenia; Translations: [Other pancytopenia] Onset: 2 Chronic Deficiency and other anemia (20 sources) Pancytopenia; Translations: [Other pancytopenia] Onset: 4 01-20-2024 Chronic Diabetes mellitus without complication (20 sources) Type 2 diabetes mellitus without complications; Translations: [Diabetes mellitus] Onset: 7 08-26-2017 Chronic Disorders of lipid metabolism (20 sources) Hyperlipidemia, unspecified; Translations: [Hyperlipidemia] Onset: 7 08-26-2017 Chronic E Codes: Adverse effects of medical drugs (2 sources) Adverse effect of loop [high-ceiling] diuretics, initial encounter; Translations: [Adverse effect of loop diuretics, initial encounter] Onset: 2 Episodic E Codes: Fall (3 sources) Unspecified fall, initial encounter; Translations: [Accidental fall ] Onset: 4 05-11-2024 Episodic E Codes: Unspecified (2 sources) Blood alcohol level of 120-199 mg/100 ml; Translations: [Blood alcohol level of 120-199 mg/100 ml] Onset: 2 Episodic Essential hypertension (20 sources) Essential (primary) hypertension; Translations: [Essential hypertension] Onset: 7 08-26-2017 Chronic Fluid and electrolyte disorders (20 sources) Dehydration; Translations: [Dehydration] Onset: 2 Episodic Gastritis and duodenitis (2 sources) Gastritis, unspecified, without bleeding; Translations: [Gastritis, unspecified, without bleeding] Onset: 2 Episodic Gout and other crystal arthropathies (2 sources) Gout, unspecified; Translations: [Gout, unspecified] Onset: 2 Chronic Hepatitis (2 sources) Chronic viral hepatitis C; Translations: [Chronic viral hepatitis C] Onset: 2 Chronic Malaise and fatigue (3 sources) Malaise and fatigue; Translations: [Weakness] Onset: 4 05-22-2024 Episodic Menopausal disorders (2 sources) Hormone replacement therapy; Translations: [Hormone replacement therapy] Onset: 2 Episodic Mood disorders (20 sources) Recurrent major depressive episodes, mild ; Translations: [Major depressive disorder, recurrent, mild] Onset: 3 11-06-2022 Chronic Mood disorders (20 sources) Mood disorders; Translations: [Depression, unspecified] Onset: 3 Resolved: 4 Nutritional deficiencies (20 sources) Nutritional marasmus; Translations: [Unspecified severe protein-calorie malnutrition] Onset: 2 Chronic Open wounds of head; neck; and trunk (1 source) Tear of skin; Translations: [Open wound(s) (multiple) of unspecified site(s), without mention of complication] 05-21-2024 Episodic Other aftercare (2 sources) 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 (current) use of oral hypoglycemic drugs; Translations: [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 (current) use of oral hypoglycemic drugs] Onset: 2 Episodic Other aftercare (2 sources) 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 (current) use of bisphosphonates; Translations: [prison (current) use of bisphosphonates] Onset: 2 Episodic Other aftercare (2 sources) prison (current) use of opiate analgesic; Translations: [prison (current) use of opiate analgesic] Onset: 2 Episodic Other aftercare (2 sources) Other terminal supervisor (current) drug therapy; Translations: [Other assisted (current) drug therapy] Onset: 2 Episodic Other aftercare (1 source) Postoperative visit; Translations: [Encounter for other specified surgical aftercare] Episodic Other circulatory disease (2 sources) Hypotension, unspecified; Translations: [Hypotension, unspecified] Onset: 2 Episodic Other gastrointestinal disorders (1 source) History of esophageal varices; Translations: [Personal history of other diseases of the digestive system] Episodic Other gastrointestinal disorders (3 sources) Diarrhea; Translations: [Diarrhea, unspecified] Episodic Other infections; including parasitic (2 sources) History of hepatitis C; Translations: [Personal history of other infectious and parasitic diseases] Episodic Other injuries and conditions due to external causes (1 source) Closed injury of head; Translations: [Unspecified injury of head, initial encounter] 05-21-2024 Episodic Other liver diseases (2 sources) Unspecified cirrhosis of liver; Translations: [Inflammatory liver disease, unspecified] Onset: 7 Chronic Other liver diseases (20 sources) Inflammatory disease of liver; Translations: [Inflammatory liver disease, unspecified] Onset: 7 08-26-2017 Chronic Other liver diseases (20 sources) Cirrhosis of liver; Translations: [Unspecified cirrhosis of liver] Onset: 7 08-26-2017 Chronic Other liver diseases (1 source) Enzyme level - finding; Translations: [Elevated transaminase measurement] 05-21-2024 Episodic Other nervous system disorders (2 sources) Other chronic pain; Translations: [Other chronic pain] Onset: 2 Chronic Other nervous system disorders (20 sources) Chronic pain syndrome; Translations: [Chronic pain syndrome] Onset: 3 11-06-2022 Chronic Other nutritional; endocrine; and metabolic disorders (1 source) Other disorders of phosphorus metabolism; Translations: [Other disorders of phosphorus metabolism] Onset: 4 Chronic Other nutritional; endocrine; and metabolic disorders (3 sources) Hypomagnesemia; Translations: [Hypomagnesemia] Onset: 4 Chronic Other nutritional; endocrine; and metabolic disorders (2 sources) Ketosis; Translations: [Other specified metabolic disorders] 07-04-2024 Chronic Other nutritional; endocrine; and metabolic disorders (3 sources) Hypomagnesemia; Translations: [Hypomagnesemia] 07-05-2024 Chronic Other nutritional; endocrine; and metabolic disorders (2 sources) Other specified metabolic disorders; Translations: [Other specified metabolic disorders (HCC)] Onset: 4 Chronic Other nutritional; endocrine; and metabolic disorders (1 source) Hypophosphatemia; Translations: [Other disorders of phosphorus metabolism] 04-16-2024 Chronic Residual codes; unclassified (20 sources) Sleep apnea; Translations: [Sleep apnea, unspecified] Onset: 7 08-26-2017 Chronic Residual codes; unclassified (20 sources) Obstructive sleep apnea syndrome; Translations: [Obstructive sleep apnea (adult) (pediatric)] Onset: 7 12-29-2022 Chronic Residual codes; unclassified (2 sources) Edema of lower extremity; Translations: [Localized edema] 01-20-2024 Episodic Residual codes; unclassified (2 sources) Current drinker; Translations: [Other specified health status] 07-04-2024 Episodic Residual codes; unclassified (3 sources) Amnesia; Translations: [Other amnesia] Onset: 4 07-26-2024 Episodic Residual codes; unclassified (2 sources) Tobacco user; Translations: [Tobacco use] 05-08-2025 Episodic Screening and history of mental health and substance abuse codes (2 sources) Personal history of nicotine dependence; Translations: [Personal history of nicotine dependence] Onset: 2 Episodic Septicemia (except in labor) (2 sources) Severe sepsis without septic shock; Translations: [Severe sepsis without septic shock] Onset: 2 Episodic Spondylosis; intervertebral disc disorders; other back problems (20 sources) Disorder of joint of spine; Translations: [Other spondylosis with radiculopathy, lumbar region] Onset: 8 03-12-2018 Chronic Substance-related disorders (2 sources) Cannabis abuse; Translations: [Cannabis abuse, uncomplicated] 05-08-2025 Chronic Thyroid disorders (2 sources) Hypothyroidism, unspecified; Translations: [Hypothyroidism, unspecified] Onset: 2 Chronic Unclassified (2 sources) Alcohol use, unspecified with withdrawal, unspecified; Translations: [Alcohol use, unspecified with withdrawal, unspecified] Onset: 2 Unclassified (1 source) Low back pain, unspecified; Translations: [Low back pain, unspecified] Onset: 2 Unclassified (1 source) Alcohol use, unspecified with withdrawal, uncomplicated; Translations: [Alcohol use, unspecified with withdrawal, uncomplicated] Onset: 4 Unclassified (1 source) Alcohol abuse with withdrawal, unspecified; Translations: [Alcohol abuse with withdrawal, unspecified] Onset: 4 Unclassified (1 source) Elevation of levels of liver transaminase levels; Translations: [Elevation of levels of liver transaminase levels] Onset: 4 Unclassified (1 source) Alcohol use, unspecified with withdrawal delirium; Translations: [Alcohol use, unspecified with withdrawal delirium] Onset: 4 Unclassified (1 source) Alcohol use, unspecified, uncomplicated; Translations: [Alcohol use, unspecified, uncomplicated] Onset: 4 Unclassified (1 source) Other acidosis; Translations: [Other acidosis] Onset: 4 Unclassified (1 source) Alcohol use, unspecified with withdrawal, uncomplicated (HCC); Translations: [Alcohol use, unspecified with withdrawal, uncomplicated (HCC)] Onset: 4 Unclassified (1 source) Readiness finding 05-22-2024 Unclassified (1 source) Admitted to alcohol detoxification center 05-21-2024 Viral infection (2 sources) Disease caused by 2019-nCoV; Translations: [COVID-19] 01-15-2024 Episodic Viral infection (2 sources) COVID-19; Translations: [COVID-19] Onset: Past or Other Problems Problem Classification Problem Date Documented Date Episodic/Chronic Abdominal pain (20 sources) Right flank pain; Translations: [Unspecified abdominal pain] Onset: 05-15-2022 Episodic Acute and unspecified renal failure (20 sources) Acute kidney failure, unspecified; Translations: [Acute injury of kidney] Onset: 06-04-2022 Episodic Biliary tract disease (20 sources) Hydrops of gallbladder; Translations: [Hydrops of gallbladder] Onset: 01-05-2023 Episodic Complications of surgical procedures or medical care (20 sources) Complication of surgical procedure; Translations: [Unspecified complication of procedure, initial encounter] Onset: 11-06-2022 11-06-2022 Episodic Conditions associated with dizziness or vertigo (20 sources) Postural dizziness; Translations: [Dizziness and giddiness] Onset: 06-04-2022 Episodic Genitourinary symptoms and ill-defined conditions (1 [...] Results Test Name Value Interpretation Reference Range Facility Absolute lymphocyte countOrd ered By: Eddy Haddad on 05-07-2025 Lymphocytes Auto (Unsp spec) [#/Vol] 4.43 10*3/uL 0.83-4.[address] [facility] Absolute neutrophil countOrd ered By: Eddy Haddad on 05-07-2025 Neutrophils (Bld) [#/Vol] 4.3 10*3/uL 2.0-7.[address] [facility] Amphetamine detection with 1 000 ng/mL as cutoffOrdered By: Eddy Haddad on 05-07-2025 Amphetamines Screen method >1000 ng/mL Ql (U) Negative < 200 ng/mL [facility] Anion gap in Serum or Plasma Ordered By: Eddy Haddad on 05-07-2025 Anion gap [Moles/Vol] 20 mmol/L High 5-15 [facility] Automated lymphocyte count a s percentage of total leukocytesOrdered By: Eddy Haddad on 05-07-2025 Lymphocytes/100 WBC Auto (Unsp spec) 46.2 % High 19-[address] [facility] BUN/creatinine ratioOrdered By: Eddy Haddad on 05-07-2025 Urea nitrogen/Creatinine [Mass ratio] 8.6 mg/mg Low 10-[address] [facility] Basophil percentageOrdered B y: Eddy Haddad on 05-07-2025 Basophils/100 WBC (Bld) 0.3 % 0-[address] [facility] Bilirubin, totalOrdered By: Eddy Haddad on 05-07-2025 Bilirubin [Mass/Vol] 0.69 mg/dL 0.00-1.30 [facility] Carbon dioxide, total [Moles /volume] in Central venous bloodOrdered By: Eddy Haddad on 05-07-2025 CO2 [Moles/Vol] 19.1 mmol/L Low 21.0-32.[address] [facility] Chloride assayOrdered By: Elisabet Haddad on 05-07-2025 Chloride [Moles/Vol] 85 mmol/L Low 98-108 [facility] Eosinophil percentageOrdered By: Eddy Haddad on 05-07-2025 Eosinophils/100 WBC (Bld) 0.6 % 0-[address] [facility] Erythrocyte distribution wid th ratioOrdered By: Eddy Haddad on 05-07-2025 Erythrocyte distribution width (RBC) [Ratio] 14.5 % 11.6-14.[address] [facility] Erythrocyte distribution wid th standard deviationOrdered By: Eddy Haddad on 05-07-2025 Erythrocyte distribution width (RBC) [Ratio] 46.7 fl High 35.1-43.[address] [facility] Glomerular filtration rate ( GFR) estimation/1.73 sq m using serum, plasma, or whole bOrdered By: Eddy Haddad on 05-07-2025 GFR/1.73 sq M.predicted among non-blacks MDRD (S/P/Bld) [Vol rate/Area] 82 mL/min/{1.73_m2} >[address] [facility] Comment on above: mL/min/1.73m2 CKD-EP I Creatinine Equation (2020) Hematocrit Auto (Bld) [Volum e fraction]Ordered By: Eddy Haddad on 05-07-2025 Hematocrit (Bld) [Volume fraction] 36.2 % Low 40-[address] [facility] Hemoglobin measurementOrdere d By: Eddy Haddad on 05-07-2025 Hemoglobin (Bld) [Mass/Vol] 13.1 g/dL 13.0-16.[address] [facility] Immature granulocytes/100 WB C Auto (Bld)Ordered By: Eddy Haddad on 05-07-2025 Immature granulocytes/100 WBC (Bld) 1.000 % High 0.0-0.[address] [facility] Comment on above: IG% - Immature Granu locytes (promyelocytes, myelocytes and metamyelocytes) > 1% indicates that a LEFT SHIFT is Present. International normalized rat io (INR) calculationOrdered By: Eddy Haddad on 05-07-2025 INR Coag (Bld) [Relative time] 1.0 {INR} [facility] Laboratory - Chemistry and C hemistry - challengeOrdered By: Eddy Haddad on 05-07-2025 AST [Catalytic activity/Vol] 22 U/L <[address] [facility] MCV (mean corpuscular volume ) determinationOrdered By: Eddy Haddad on 05-07-2025 MCV (RBC) [Entitic vol] 88.7 fL 80-[address] [facility] Magnesium measurement (mass/ volume)Ordered By: Oksana Angeles on 05-07-2025 Magnesium (Unsp spec) [Mass/Vol] 1.5 mg/dL 1.5-2.[address] [facility] Mean corpuscular hemoglobin (MCH) determinationOrdered By: Eddy Haddad on 05-07-2025 MCH (RBC) [Entitic mass] 32.1 pg High 27.0-32.[address] [facility] Mean corpuscular hemoglobin concentration (MCHC) determinationOrdered By: Eddy Haddad on 05-07-2025 MCHC (RBC) [Mass/Vol] 36.2 g/dL High 32-36 [facility] Mean platelet volume determi nationOrdered By: Eddy Haddad on 05-07-2025 Platelet mean volume (Bld) [Entitic vol] 9.2 fL 6.2-12.[address] [facility] Monocyte percentageOrdered B y: Eddy Haddad on 05-07-2025 Monocytes/100 WBC (Bld) 6.7 % 0-[address] [facility] Neutrophil percentageOrdered By: Eddy Haddad on 05-07-2025 Neutrophils/100 WBC (Bld) 45.2 % Low 47-[address] [facility] No Panel InformationOrdered By: Eddy Haddad on 05-07-2025 Urine Buprenorphine Qualitative Negative < 200 ng/mL [facility] Urine Oxycodone Screen Negative < 100 ng/mL [facility] Nucleated red blood cell per centageOrdered By: Eddy Haddad on 05-07-2025 Nucleated RBC/100 WBC (Bld) [Ratio] 0 % 0-[address] [facility] Platelet countOrdered By: Elisabet Haddad on 05-07-2025 Platelets (Bld) [#/Vol] 129 10*3/uL Low 150-[address] [facility] Potassium measurement (mass/ volume)Ordered By: Eddy Haddad on 05-07-2025 Potassium (Unsp spec) [Mass/Vol] 3.6 mmol/L 3.3-5.[address] [facility] Prothrombin timeOrdered By: Eddy Haddad on 05-07-2025 PT Coag (PPP) [Time] 13.7 s 11.7-14.9 [facility] Quantitative urine opiates m easurementOrdered By: Eddy Haddad on 05-07-2025 Opiates Ql (U) Negative < 300 ng/mL [facility] RBC Auto (Bld) [#/Vol]Ordere d By: Eddy Haddad on 05-07-2025 RBC (Bld) [#/Vol] 4.08 10*6/uL Low 4.6-6.2 [facility] Screening urine fentanyl charlotte surementOrdered By: Eddy Haddad on 05-07-2025 fentaNYL Screen Ql (U) Negative [facility] Serum creatinine measurement (mass/volume)Ordered By: Eddy Haddad on 05-07-2025 Creatinine [Mass/Vol] 1.02 mg/dL 0.70-1.20 [facility] Serum globulin measurementOr dered By: Eddy Haddad on 05-07-2025 Globulin (S) [Mass/Vol] 2.8 g/dL 2.2-4.[address] [facility] Serum glucose measurement (m ass/volume)Ordered By: Eddy Haddad on 05-07-2025 Glucose [Mass/Vol] 98 mg/dL 70-99 [facility] Serum or plasma alanine calle otransferase (ALT) measurementOrdered By: Eddy Haddad on 05-07-2025 ALT [Catalytic activity/Vol] 12 U/L <[address] [facility] Serum or plasma albumin david urement (mass/volume)Ordered By: Eddy Haddad on 05-07-2025 Albumin [Mass/Vol] 4.4 g/dL 3.4-4.8 [facility] Serum or plasma albumin/glob ulin mass ratioOrdered By: Eddy Haddad on 05-07-2025 Albumin/Globulin [Mass ratio] 1.6 {ratio} 0.9-2.[address] [facility] Serum or plasma alkaline herbie sphatase measurementOrdered By: Eddy Haddad on 05-07-2025 ALP [Catalytic activity/Vol] 89 U/L 40-[address] [facility] Serum or plasma calcium david urement (mass/volume)Ordered By: Eddy Haddad on 05-07-2025 Calcium [Mass/Vol] 9.0 mg/dL 7.6-11.0 [facility] Serum or plasma ethanol david urement (mass/volume)Ordered By: Eddy Haddad on 05-07-2025 Ethanol [Mass/Vol] 272.0 mg/dL High <10.1 [facility] Comment on above: This test is for med ical purposes only. The legal definition of intoxication varies according to local law. Serum or plasma urea nitroge n measurement (mass/volume)Ordered By: Eddy Haddad on 05-07-2025 Urea nitrogen [Mass/Vol] 9 mg/dL 4-[address] [facility] Sodium levelOrdered By: Finn Haddad on 05-07-2025 Sodium [Moles/Vol] 124 mmol/L Low 133-145 [facility] Total proteinOrdered By: Homer Haddad on 05-07-2025 Protein [Mass/Vol] 7.1 g/dL 5.9-8.4 [facility] Urine benzodiazepine levelOr dered By: Eddy Haddad on 05-07-2025 Benzodiazepines Ql (U) Negative < 200 ng/mL [facility] Urine cocaine levelOrdered B y: Eddy Haddad on 05-07-2025 Cocaine Ql (U) Negative < 300 ng/mL [facility] Urine [id number] abinol (THC) measurementOrdered By: Eddy Haddad on 05-07-2025 Cannabinoids Screen Ql (U) Positive < 50 ng/mL [facility] Comment on above: If confirmation test ing is needed, a separate order will be required to send out testing to the reference laboratory. Urine phencyclidine (PCP) de tectionOrdered By: Eddy Haddad on 05-07-2025 Phencyclidine Ql (U) Negative < 25 ng/mL [facility] White blood cell (WBC) count Ordered By: Eddy Haddad on 05-07-2025 WBC (Bld) [#/Vol] 9.6 10*3/uL 4.4-11.0 [facility] [facility] CARECOORDon 12-16-2024 CAR[place]OORD [facility] 36on 10-03-2024 36 [facility] [id number] 08-01-2024 [id number] [facility] Behavioral Health Treatment Planon 08-01-2024 Behavioral Health Treatment Plan Normal [facility] CARECOORDon 08-01-2024 [place] [facility] [place]ORD TCT brother in law, l/m re dc today Normal [facility] IDNon 08-01-2024 IDN Normal [facility] IDN [facility] Nursing Noteon 08-01-2024 Nursing Note Discharge sandeep salcido reviewed, all questions answered, all concerns addressed. Patient declined flu vaccine stating he will follow up with his PCP. Normal [facility] Nursing Note Normal [facility] Nursing Note Normal [facility] Progress Noteon 08-01-2024 Progress Note TCT Piotr, updated re dc today. Grateful for care and tx Normal [facility] Nursing Noteon 07-31-2024 Nursing Note Patient approached R N requesting throat spray and vistaril. Patient stated he was having some pain in his throat and having some generalized anxiety. PRN vistaril and throat spray given. Normal [facility] Nursing Note Assumed care of harika ent. Patient denies needs at this time. Normal [facility] Nursing Note Pt pleasant, coopera tive, AOx 3, Denies pain, Denies thoughts of harm to self and others, no delusional thinking voiced. Compliant with meds. Gait steady with walker, speech clear. No s/s of physical distress noted. Normal [facility] Nursing Note Normal [facility] Progress Noteon 07-31-2024 Progress Note Normal [facility] IDNon 07-30-2024 IDN [facility] IDN [facility] IDN [facility] IDN [facility] IDN Normal [facility] Nursing Noteon 07-30-2024 Nursing Note Normal [facility] Nursing Note Tums 500 mg given fo r indigestion at 1623. Normal [facility] Nursing Note Vistaril 50 mg PO gi oziel for anxiety after redirection was ineffective. Normal [facility] Nursing Note Normal [facility] Nursing Note Pt complaining of restlessness and increased anxiety. Agreeable to PRN Vistaril, given at this time. Normal [facility] Progress Noteon 07-30-2024 Progress Note Normal [facility] Progress Note Normal [facility] BASIC METABOLIC PANELon 07-19 Anion gap [Moles/Vol] 7 mmol/L Normal 3-13 [facility] Comment on above: Performed By: #### L [id number] ####Steam Shovel Engineer: ARA WRIGHT ([id number])[facility])[address] [place] [address] Calcium [Mass/Vol] 9.4 mg/dL Normal 8.4-10.4 [facility] Comment on above: Performed By: #### L AB15 ####Steam Shovel Engineer: ARA WRIGHT ([id number])[facility])[address] [place] [address] [place] Chloride [Moles/Vol] 109 mmol/L High 98-107 [facility] Comment on above: Performed By: #### L AB15 ####Steam Shovel Engineer: ARA WRIGHT ([id number])[facility])[address] [place] [address] CO2 [Moles/Vol] 17 mmol/L Low 22-30 [facility] Comment on above: Performed By: #### L AB15 ####Steam Shovel Engineer: ARA WRIGHT ([id number])[facility] ([facility])[address] [place] [address] Creatinine [Mass/Vol] 0.92 mg/dL Normal 0.66-1.25 [facility] Comment on above: Performed By: #### L AB15 ####Steam Shovel Engineer: ARA WRIGHT ([id number])[facility])[address] [place] [address] GLOMERULAR FILTRATION RATE ML/MIN/1.73 SQ M.PREDICTED >90.0 Normal >60.0 [facility] Comment on above: Result Comment: Calc ulation based on the Chronic Kidney Disease Epidemiology Collaboration (CKD-EPI) equation refit without adjustment for race Performed By: #### L AB15 ####Steam Shovel Engineer: ARA WRIGHT ([id number])[facility] ([facility])[address] [place] [address] Glucose [Mass/Vol] 111 mg/dL High 70-100 [facility] Comment on above: Performed By: #### L AB15 ####Steam Shovel Engineer: ARA WRIGHT ([id number])[facility])[address] [place] [address] Potassium [Moles/Vol] 4.4 mmol/L Normal 3.5-5.1 [facility] Comment on above: Performed By: #### L AB15 ####Steam Shovel Engineer: ARA WRIGHT ([id number])[facility] ([facility])[address] [place] [address] Sodium [Moles/Vol] 134 mmol/L Low 135-145 [facility] Comment on above: Performed By: #### L AB15 ####Steam Shovel Engineer: ARA WRIGHT ([id number])[facility])[address] [place] [address] Urea nitrogen [Mass/Vol] 17 mg/dL Normal 9-20 [facility] Comment on above: Performed By: #### L AB15 ####Steam Shovel Engineer: ARA WRIGHT ([id number])[facility])[address] [place] [address] CARECOORDon 07-29-2024 [place] Spoke to admissions [facility] pt will not qualify for CD treatment at facilities. Normal [facility] [place] Normal [facility] Nursing Noteon 07-29-2024 Nursing Note Normal [facility] Nursing Note PRN Vistaril effecti ve. Patient requesting PRN Tylenol and PRN Tums. Rates sinus pain 7/10 and has complaints of acid reflux. Normal [facility] Nursing Note Patient requesting P RN Vistaril for anxiety rated 8/10 Normal [facility] Nursing Note Normal [facility] Nursing Note Patient is calm and cooperative with care and medication. Alert and oriented x 3 watching TV with peers. Denies pain SI, HI, visual and Auditory hallucination. No voiced concerns or stressors at this time. Safety precaution maintained. Normal [facility] Progress Noteon 07-29-2024 Progress Note Normal [facility] CARECOORDon 07-28-2024 [place] Normal [facility] GROUPNOTEon 07-28-2024 GROUPNOTE Normal [facility] IDNon 07-28-2024 IDN Normal [facility] IDN Consuming supplement s. Will increase Magic cup to tid Normal [facility] IDN Normal [facility] Nursing Noteon 07-28-2024 Nursing Note Tylenol 650 mg given for generalized pain, Vistaril 50 mg given for anxiety and Tums given for indigestion. Normal [facility] Nursing Note Normal [facility] Nursing Note Vistaril 50 mg PO gi oziel for anxiety after redirection was ineffective. Normal [facility] Nursing Note Patient given Tums 5 00 mg for indigestion. Normal [facility] Progress Noteon 07-28-2024 Progress Note Normal [facility] Progress Note Normal [facility] Progress Note Normal [facility] Progress Note Normal [facility] CARECOORDon 07-27-2024 [place] TCT FARIBA, l/m Normal [facility] IDNon 07-27-2024 IDN Normal [facility] Nursing Noteon 07-27-2024 Nursing Note Normal [facility] Nursing Note Patient up with walk er and a steady gait. Resting in bed, social with staff and peers. Normal [facility] Nursing Note Normal [facility] Nursing Note PRN tylenol and vist aril effective Normal [facility] Nursing Note PRN tylenol for pain and vistaril for anxiety given Normal [facility] Progress Noteon 07-27-2024 Progress Note Normal [facility] 36on 07-26-2024 36 Called and spoke yuri pineda Kingsley and scheduled hosp f/up with ALYSSA Armas on 09/13/2024 at 3:00 pm. Thank you Normal [facility] BASIC METABOLIC PANELon 10-0 Anion gap [Moles/Vol] 8 mmol/L Normal 3-13 [facility] Comment on above: Performed By: #### L AB15 ####Steam Shovel Engineer: ARA WRIGHT ([id number])[facility])[address] [place] [address] Calcium [Mass/Vol] 9.4 mg/dL Normal 8.4-10.4 [facility] Comment on above: Performed By: #### L AB15 ####Steam Shovel Engineer: ARA WRIGHT ([id number])[facility])[address] [place] [address] Chloride [Moles/Vol] 104 mmol/L Normal 98-107 [facility] Comment on above: Performed By: #### L AB15 ####Steam Shovel Engineer: ARA WRIGHT ([id number])[facility] ([facility])[address] [place] [address] CO2 [Moles/Vol] 17 mmol/L Low 22-30 [facility] Comment on above: Performed By: #### L AB15 ####Steam Shovel Engineer: ARA WRIGHT ([id number])[facility])[address] [place] [address] Creatinine [Mass/Vol] 0.84 mg/dL Normal 0.66-1.25 [facility] Comment on above: Performed By: #### L [id number] ####Steam Shovel Engineer: ARA WRIGHT ([id number])[facility])[address] [place] [address] GLOMERULAR FILTRATION RATE ML/MIN/1.73 SQ M.PREDICTED >90.0 Normal >60.0 [facility] Comment on above: Result Comment: Calc ulation based on the Chronic Kidney Disease Epidemiology Collaboration (CKD-EPI) equation refit without adjustment for race Performed By: #### L AB15 ####Steam Shovel Engineer: ARA WRIGHT ([id number])[facility] ([facility])[address] [place] [address] Glucose [Mass/Vol] 100 mg/dL Normal 70-100 [facility] Comment on above: Performed By: #### L AB15 ####Steam Shovel Engineer: ARA WRIGHT ([id number])[facility])[address] [place] [address] Potassium [Moles/Vol] 4.4 mmol/L Normal 3.5-5.1 [facility] Comment on above: Performed By: #### L AB15 ####Steam Shovel Engineer: ARA WRIGHT ([phone])[facility])[address] [place] [address] Sodium [Moles/Vol] 129 mmol/L Low 135-145 [facility] Comment on above: Performed By: #### L AB15 ####Steam Shovel Engineer: ARA WRIGHT ([id number])[facility] ([facility])[address] [place] [address] Urea nitrogen [Mass/Vol] 14 mg/dL Normal 9-20 [facility] Comment on above: Performed By: #### L AB15 ####Steam Shovel Engineer: ARA WRIGHT ([id number])[facility])[address] [place] [address] CARECOORDon 07-26-2024 CAR[place]OORD TCT PRADEEP Saldaña l/m Normal [facility] Consulton 07-26-2024 Consult Normal [facility] GROUPNOTEon 07-26-2024 GROUPNOTE Normal [facility] IDNon 07-26-2024 IDN Normal [facility] IDN Normal [facility] Nursing Noteon 07-26-2024 Nursing Note PRN tylenol and vist aril effective Normal [facility] Nursing Note Normal [facility] Nursing Note Patient became sad o olinda another patient who was confused on the unit and felt she reminded him of his mother. Patient wanted to then be in his room for a little bit and was feeling anxious. Prn PO vistaril given for anxiety. Normal [facility] Nursing Note Normal [facility] Nursing Note PRN vistaril, tyleno l and TUMS effective Normal [facility] Nursing Note PRN Vistaril for anx iety, TUMS for heartburn, and tylenol for headache pain given. Normal [facility] Progress Noteon 07-26-2024 Progress Note Normal [facility] Progress Note Normal [facility] Progress Note Normal [facility] Progress Note Normal [facility] BASIC METABOLIC PANELon 10-0 Anion gap [Moles/Vol] 10 mmol/L Normal 3-13 [facility] Comment on above: Performed By: #### L AB15 ####Steam Shovel Engineer: ARA WRIGHT ([id number])[facility])[address] [place] [address] Calcium [Mass/Vol] 9.6 mg/dL Normal 8.4-10.4 [facility] Comment on above: Performed By: #### L AB15 ####Steam Shovel Engineer: ARA WRIGHT ([id number])[facility] ([facility])[address] [place] [address] Chloride [Moles/Vol] 104 mmol/L Normal 98-107 [facility] Comment on above: Performed By: #### L AB15 ####Steam Shovel Engineer: ARA WRIGHT ([id number])[facility] ([facility])[address] [place] [address] [place] CO2 [Moles/Vol] 16 mmol/L Low 22-30 [facility] Comment on above: Performed By: #### L AB15 ####Steam Shovel Engineer: ARA WRIGHT ([id number])[facility] ([facility])[address] [place] [address] Creatinine [Mass/Vol] 0.84 mg/dL Normal 0.66-1.25 [facility] Comment on above: Performed By: #### L AB15 ####Steam Shovel Engineer: ARA WRIGHT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 ([id number])[facility])[address] [place] [address] MCH (RBC) [Entitic mass] 29.5 pg Normal 26.0-34.0 [facility] Comment on above: Performed By: #### L [id number] ####Steam Shovel Engineer: ARA WRIGHT ([id number])[facility] ([facility])[address] [place] [address] MCHC 32.1 % Normal 30.5-36.0 [facility] Comment on above: Performed By: #### L [id number] ####Steam Shovel Engineer: ARA WRIGHT ([id number])[facility])[address] [place] [address] MCV (RBC) [Entitic vol] 92.0 fL Normal 77.0-99.0 [facility] Comment on above: Performed By: #### L [id number] ####Steam Shovel Engineer: ARA WRIGHT ([id number])[facility])[address] [place] [address] Platelet mean volume (Bld) [Entitic vol] 9.6 fL Normal 9.0-12.7 [facility] Comment on above: Performed By: #### L [id number] ####Steam Shovel Engineer: ARA WRIGHT ([id number])[facility])[address] [place] [address] Platelets (Bld) [#/Vol] 167 10*3/uL Normal 140-440 [facility] Comment on above: Performed By: #### L [id number] ####Steam Shovel Engineer: ARA WRIGHT ([id number])[facility])[address] [place] [address] RBC (Bld) [#/Vol] 3.52 10*6/uL Low 4.40-5.90 [facility] Comment on above: Performed By: #### L [id number] ####Steam Shovel Engineer: ARA WRIGHT ([id number])[facility] ([facility])[address] [place] [address] WBC (Bld) [#/Vol] 5.0 10*3/uL Normal 3.6-10.7 [facility] Comment on above: Performed By: #### L [id number] ####Steam Shovel Engineer: ARA WILLJULIA ([id number])[facility])[address] [place] [address] IDNon 07-16-2024 IDN Normal [facility] Nursing Noteon 07-16-2024 Nursing Note Normal [facility] Nursing Note Normal [facility] Progress Noteon 07-16-2024 Progress Note Normal [facility] Progress Note Normal [facility] CARECOORDon 07-15-2024 CARECOORD PAS returned, approv ed. Normal [facility] Consulton 07-15-2024 Consult Normal [facility] GROUPNOTEon 07-15-2024 GROUPNOTE Normal [facility] IDNon 07-15-2024 IDN Normal [facility] Nursing Noteon 07-15-2024 Nursing Note Normal [facility] Nursing Note Normal [facility] Nursing Note Wound Care consulted for Pressure Injury Prevention. Pt's Pranav= 19, pt is no longer at risk. Dietitian consult in place. Will continue to follow peripherally. Please voicera or secure chat message with any questions. Gina Sarmiento, RN, CWCN Normal [facility] Nursing Note Patient has been ameena ke for a couple hours, states this is typical for him. Denies having any needs, questions, or concerns at this time. No self-harm behaviors throughout the night. Normal [facility] Nursing Note 0318- Pt requested P RN tylenol for pain. Pt rated pain a 3/10. PRN tylenol was administered. No further concerns at this time. Normal [facility] Progress Noteon 07-15-2024 Progress Note Normal [facility] Progress Note Normal [facility] Progress Note Normal [facility] XR FOREARM 2 VIEWS RIGHTon 0 07-15-2024 XR FOREARM 2 VIEWS RIGHT Normal [facility] GROUPNOTEon 07-14-2024 GROUPNOTE Normal [facility] Nursing Noteon 07-14-2024 Nursing Note Normal [facility] Nursing Note Normal [facility] Nursing Note Normal [facility] Nursing Note Normal [facility] Progress Noteon 07-14-2024 Progress Note Normal [facility] Progress Note Normal [facility] Progress Note Normal [facility] GROUPNOTEon 07-13-2024 GROUPNOTE Normal [facility] IDNon 07-13-2024 IDN Normal [facility] IDN Normal [facility] Nursing Noteon 07-13-2024 Nursing Note Normal [facility] Nursing Note Normal [facility] Progress Noteon 07-13-2024 Progress Note Normal [facility] XR CHEST 1 VIEWon 07-13-2024 XR CHEST 1 VIEW Normal [facility] BASIC METABOLIC PANELon 06-20 Anion gap [Moles/Vol] 10 mmol/L Normal 3-13 [facility] Comment on above: Performed By: #### L AB15 ####Steam Shovel Engineer: ARA WRIGHT ([id number])[facility])[address] [place] [address] [place] Calcium [Mass/Vol] 9.5 mg/dL Normal 8.4-10.4 [facility] Comment on above: Performed By: #### L AB15 ####Steam Shovel Engineer: ARA WRIGHT ([id number])[facility] ([facility])[address] [place] [address] [place] Chloride [Moles/Vol] 103 mmol/L Normal 98-107 [facility] Comment on above: Performed By: #### L AB15 ####Steam Shovel Engineer: ARA WRIGHT ([id number])[facility] ([facility])[address] [place] [address] [place] CO2 [Moles/Vol] 19 mmol/L Low 22-30 [facility] Comment on above: Performed By: #### L AB15 ####Steam Shovel Engineer: ARA WRIGHT ([id number])[facility])[address] [place] [address] Creatinine [Mass/Vol] 1.00 mg/dL Normal 0.66-1.25 [facility] Comment on above: Performed By: #### L AB15 ####Steam Shovel Engineer: ARA WRIGHT ([id number])[facility])[address] [place] [address] GLOMERULAR FILTRATION RATE ML/MIN/1.73 SQ M.PREDICTED 84.0 mL/min/1.73m*2 Normal >60.0 [facility] Comment on above: Result Comment: Calc ulation based on the Chronic Kidney Disease Epidemiology Collaboration (CKD-EPI) equation refit without adjustment for race Performed By: #### L AB15 ####Steam Shovel Engineer: ARA WRIGHT ([id number])[facility])[address] [place] [address] Glucose [Mass/Vol] 129 mg/dL High 70-100 [facility] Comment on above: Performed By: #### L AB15 ####Steam Shovel Engineer: ARA WRIGHT ([id number])[facility])[address] [place] [address] Potassium [Moles/Vol] 4.2 mmol/L Normal 3.5-5.1 [facility] Comment on above: Performed By: #### L AB15 ####Steam Shovel Engineer: ARA WRIGHT ([id number])[facility])[address] [place] [address] Sodium [Moles/Vol] 132 mmol/L Low 135-145 [facility] Comment on above: Performed By: #### L AB15 ####Steam Shovel Engineer: ARA WRIGHT ([id number])[facility])[address] [place] [address] Urea nitrogen [Mass/Vol] 14 mg/dL Normal 9-20 [facility] Comment on above: Performed By: #### L AB15 ####Steam Shovel Engineer: ARA [id number])[facility] ([facility])[address] [place] [address] GROUPNOTEon 07-12-2024 GROUPNOTE Normal [facility] Nursing Noteon 07-12-2024 Nursing Note Normal [facility] Progress Noteon 07-12-2024 Progress Note Normal [facility] Progress Note Normal [facility] Behavioral Health Treatment Planon 07-11-2024 Behavioral Health Treatment Plan Normal [facility] CARECOORDon 07-11-2024 CARECOORD Normal [facility] CARECOORD Normal [facility] CARECOORD IMM letter given to patient. Normal [facility] Consulton 07-11-2024 Consult Normal [facility] IDNon 07-11-2024 IDN Normal [facility] LIPID PANELon 07-11-2024 Cholesterol [Mass/Vol] 170 mg/dL Normal <200 [facility] Comment on above: Order Comment: If no t done within last 12 months Performed By: #### L AB129, LAB18 ####Steam Shovel Engineer: ARA WRIGHT ([id number])[facility] ([facility])[address] [place] [address] Cholesterol in HDL [Mass/Vol] 55 mg/dL Normal 40-60 [facility] Comment on above: Order Comment: If no t done within last 12 months Performed By: #### L AB129, LAB18 ####Steam Shovel Engineer: ARA WRIGHT ([id number])[facility] ([facility])[address] [place] [address] Cholesterol.total/Chol esterol in HDL [Mass ratio] 3 {ratio} Normal [facility] Comment on above: Order Comment: If no t done within last 12 months Result Comment: Ref Range:< 3 Low Risk for CHD3-6 Mod Risk for CHD> 6 High Risk for CHD Performed By: #### L AB129, LAB18 ####Steam Shovel Engineer: ARA WRIGHT ([id number])[facility] ([facility])[address] [place] [address] LOW DENSITY LIPOPROTEIN 80 mg/dL Normal 0-<100 [facility] Comment on above: Order Comment: If no t done within last 12 months Performed By: #### L AB129, LAB18 ####Steam Shovel Engineer: ARA WRIGHT ([id number])[facility])[address] [place] [address] Triglyceride [Mass/Vol] 175 mg/dL High <150 [facility] Comment on above: Order Comment: If no t done within last 12 months Performed By: #### L AB129, LAB18 ####Steam Shovel Engineer: ARA WRIGHT ([id number])[facility])[address] [place] [address] Nursing Noteon 07-11-2024 Nursing Note Normal [facility] Nursing Note Pt withdrawn to room , denies any physical concerns at this time. Pt encouraged to perform ADLs and join peers for meals. Report called to Ch[facility]. Normal [facility] Nursing Note Pt pleasant, coopera tive, AOx 3, Denies pain, Denies thoughts of harm to self and others, no delusional thinking voiced. Compliant with medications. Gait steady with walker, speech clear. No s/s of physical distress noted. ADLs encouraged Normal [facility] Nursing Note Pt mostly secluded t o room, admits to periods of depression but feels safe on the unit and denies SI HI or AVH, was med compliant. Up for a brief period of time to eat a snack and use bathroom at 0130. Behavior in control. Normal [facility] Progress Noteon 07-11-2024 Progress Note Normal [facility] Progress Note Normal [facility] Progress Note Normal [facility] THYROID STIMULATING HORMONEo n 07-11-2024 THYROID STIMULATING HORMONE 7.622 uIU/mL High 0.465-4.680 [facility] Comment on above: Performed By: #### L AB129, LAB18 ####Steam Shovel Engineer: ARA WRIGHT ([id number])[facility])[address] [place] [address] BASIC METABOLIC PANELon 09-2 2-2024 Anion gap [Moles/Vol] 8 mmol/L Normal 3-13 [facility] Comment on above: Performed By: #### L AB15 ####Steam Shovel Engineer: ARA WRIGHT ([id number])[facility])[address] [place] [address] Calcium [Mass/Vol] 9.2 mg/dL Normal 8.4-10.4 [facility] Comment on above: Performed By: #### L AB15 ####Steam Shovel Engineer: ARA WRIGHT ([id number])[facility] ([facility])[address] [place] [address] Chloride [Moles/Vol] 107 mmol/L Normal 98-107 [facility] Comment on above: Performed By: #### L AB15 ####Steam Shovel Engineer: ARA WRIGHT ([id number])[facility] ([facility])[address] [place] [address] CO2 [Moles/Vol] 21 mmol/L Low 22-30 [facility] Comment on above: Performed By: #### L AB15 ####Steam Shovel Engineer: ARA WRIGHT ([id number])[facility] ([facility])[address] [place] [address] Creatinine [Mass/Vol] 0.99 mg/dL Normal 0.66-1.25 [facility] Comment on above: Performed By: #### L AB15 ####Steam Shovel Engineer: ARA WRIGHT ([id number])[facility] ([facility])[address] [place] [address] [place] GLOMERULAR FILTRATION RATE ML/MIN/1.73 SQ M.PREDICTED 85.1 mL/min/1.73m*2 Normal >60.0 [facility] Comment on above: Result Comment: Calc ulation based on the Chronic Kidney Disease Epidemiology Collaboration (CKD-EPI) equation refit without adjustment for race Performed By: #### L AB15 ####Steam Shovel Engineer: ARA WRIGHT ([id number])[facility] ([facility])[address] [place] [address] Glucose [Mass/Vol] 137 mg/dL High 70-100 [facility] Comment on above: Performed By: #### L AB15 ####Steam Shovel Engineer: ARA WRIGHT ([id number])[facility])[address] [place] [address] Potassium [Moles/Vol] 4.2 mmol/L Normal 3.5-5.1 [facility] Comment on above: Performed By: #### L AB15 ####Steam Shovel Engineer: ARA WRIGHT ([id number])[facility] ([facility])[address] [place] [address] Sodium [Moles/Vol] 136 mmol/L Normal 135-145 [facility] Comment on above: Performed By: #### L [id number] ####Steam Shovel Engineer: ARA WRIGHT ([id number])[facility] ([facility])[address] [place] [address] Urea nitrogen [Mass/Vol] 13 mg/dL Normal 9-20 [facility] Comment on above: Performed By: #### L AB15 ####Steam Shovel Engineer: ARA WRIGHT ([phone])[facility] ([facility])[address] [place] [address] Basic metabolic 1998 panelon 07-10-2024 Anion gap [Moles/Vol] 8 mmol/L 3 - 13 mmol/L [facility] Calcium [Mass/Vol] 9.2 mg/dL 8.4 - 10. 4 mg/dL [facility] Chloride [Moles/Vol] 107 mmol/L 98 - 10 7 mmol/L [facility] CO2 [Moles/Vol] 21 mmol/L Low 22 - 30 mmol/L [facility] Creatinine [Mass/Vol] 0.99 mg/dL 0.66 - 1.25 mg/dL [facility] GFR/1.73 sq M.predicted (S/P/Bld) [Vol rate/Area] 85.1 mL/min - PINF [facility] Comment on above: Calculation based on the Chronic Kidney Disease Epidemiology Collaboration (CKD-EPI) equation refit without adjustment for race Glucose [Mass/Vol] 137 mg/dL High 70 - 100 mg/dL [facility] Interpretation and review of laboratory results Abnormal [facility] Potassium [Moles/Vol] 4.2 mmol/L 3.5 - 5.1 mmol/L [facility] Sodium [Moles/Vol] 136 mmol/L 135 - 145 mmol/L [facility] Urea nitrogen [Mass/Vol] 13 mg/dL 9 - 20 mg/dL [facility] CARECOORDon 07-10-2024 CARECOORD Normal [facility] CBC (HEMOGRAM)on 07-10-2024 Erythrocyte distribution width (RBC) [Ratio] 14.3 % Normal 11.5-15.0 [facility] Comment on above: Performed By: #### L [id number] ####Steam Shovel Engineer: ARA WRIGHT ([id number])[facility])[address] [place] [address] Hematocrit (Bld) [Volume fraction] 29.2 % Low 40.0-52.0 [facility] Comment on above: Performed By: #### L [id number] ####Steam Shovel Engineer: ARA WRIGHT ([phone])[facility])[address] [place] [address] Hemoglobin (Bld) [Mass/Vol] 9.8 g/dL Low 13.0-18.0 [facility] Comment on above: Performed By: #### L [id number] ####Steam Shovel Engineer: ARA WRIGHT ([id number])[facility])[address] [place] [address] MCH (RBC) [Entitic mass] 30.5 pg Normal 26.0-34.0 [facility] Comment on above: Performed By: #### L [id number] ####Steam Shovel Engineer: ARA WRIGHT ([id number])[facility])[address] [place] [address] MCHC 33.6 % Normal 30.5-36.0 [facility] Comment on above: Performed By: #### L [id number] ####Steam Shovel Engineer: ARA WRIGHT ([id number])[facility])[address] [place] [address] MCV (RBC) [Entitic vol] 91.0 fL Normal 77.0-99.0 [facility] Comment on above: Performed By: #### L [id number] ####Steam Shovel Engineer: ARA WRIGHT ([id number])[facility])[address] [place] [address] Platelet mean volume (Bld) [Entitic vol] 10.4 fL Normal 9.0-12.7 [facility] Comment on above: Performed By: #### L [id number] ####Steam Shovel Engineer: ARA WRIGHT ([id number])[facility])[address] [place] [address] Platelets (Bld) [#/Vol] 150 10*3/uL Normal 140-440 [facility] Comment on above: Performed By: #### L [id number] ####Steam Shovel Engineer: ARA WRIGHT ([id number])[facility])[address] [place] [address] RBC (Bld) [#/Vol] 3.21 10*6/uL Low 4.40-5.90 [facility] Comment on above: Performed By: #### L [id number] ####Steam Shovel Engineer: ARA WRIGHT ([id number])[facility])[address] [place] [address] WBC (Bld) [#/Vol] 5.7 10*3/uL Normal 3.6-10.7 [facility] Comment on above: Performed By: #### L [id number] ####Steam Shovel Engineer: ARA WRIGHT ([id number])[facility])[address] [place] [address] CBC panel Auto (Bld)on 07-10 Erythrocyte distribution width (RBC) [Ratio] 14.3 % 11.5 - 15.0 % [facility] Hematocrit (Bld) [Volume fraction] 29.2 % Low 40.0 - 52.0 % [facility] Hemoglobin (Bld) [Mass/Vol] 9.8 g/dL Low 13.0 - 18.0 g/dL [facility] Interpretation and review of laboratory results Abnormal [facility] MCH (RBC) [Entitic mass] 30.5 pg 26.0 - 34.0 pg [facility] MCHC (RBC) [Mass/Vol] 33.6 % 30.5 - 36.0 % [facility] MCV (RBC) [Entitic vol] 91.0 fL 77.0 - 99.0 fL [facility] Platelet mean volume (Bld) [Entitic vol] 10.4 fL 9.0 - 12.7 fL [facility] Platelets (Bld) [#/Vol] 150 10*3/uL 140 - 440 10*3/uL [facility] RBC (Bld) [#/Vol] 3.21 10*6/uL Low 4.40 - 5.9 0 10*6/uL [facility] WBC (Bld) [#/Vol] 5.7 10*3/uL 3.6 - 10.7 10*3/uL [facility] IDNon 07-10-2024 IDN Normal [facility] IDN Normal [facility] Laboratory - Microbiology an d Antimicrobial susceptibilityOrdered By: Daniel Madison on 07-10-2024 SARS-CoV-2 (COVID-19) Ag IA.rapid Ql (Resp) Negative Negative [facility] Comment on above: A negative result do es not rule out the possibility of SARS-CoV-2 infection. NAAT-based methods should be considered for symptomatic patients presenting greater than seven days after onset of symptoms. Method: Lateral flow immunoassay. Fact sheets for healthcare providers and patients can be found at the following sites: https://www.fda.gov/media/809286/download https://www.fda.gov/media/324549/download Nursing Noteon 07-10-2024 Nursing Note Notified Resp about patient's Tx ordered. Normal [facility] Nursing Note Patient did not want a resp TX, his lungs are clear, no SOB. Pulse ox was 97% on RA. Normal [facility] Nursing Note Normal [facility] Progress Noteon 07-10-2024 Progress Note Nutrition update completed. Chart reviewed. Patient to be monitored and followed by the diet outdoor emergency care technician. LATRICE José Normal [facility] Progress Note Normal [facility] Progress Note Normal [facility] Progress Note Normal [facility] SARS-COV-2 ANTIGENon 024 SARS-COV-2 ANTIGEN Normal [facility] Comment on above: Performed By: #### L [id number] ####Steam Shovel Engineer: ARA WRIGHT ([phone])[facility])[address] [place] [address] SARS-CoV-2 (COVID-19) Ag IA. rapid Ql (Resp)Ordered By: Daniel Madison on 07-10-2024 Interpretation and review of laboratory results Normal [facility] BASIC METABOLIC PANELon 06-20 Anion gap [Moles/Vol] 8 mmol/L Normal 3-13 [facility] Comment on above: Performed By: #### L [id number] ####Steam Shovel Engineer: ARA WRIGHT ([id number])[facility] ([facility])[address] [place] [address] Calcium [Mass/Vol] 9.0 mg/dL Normal 8.4-10.4 [facility] Comment on above: Performed By: #### L [id number] ####Steam Shovel Engineer: ARA WRIGHT ([id number])[facility] ([facility])[address] [place] [address] Chloride [Moles/Vol] 109 mmol/L High 98-107 [facility] Comment on above: Performed By: #### L AB15 ####Steam Shovel Engineer: ARA WRIGHT ([id number])[facility] ([facility])[address] [place] [address] CO2 [Moles/Vol] 18 mmol/L Low 22-30 [facility] Comment on above: Performed By: #### L [id number] ####Steam Shovel Engineer: ARA WRIGHT ([id number])[facility] ([facility])[address] [place] [address] Creatinine [Mass/Vol] 0.93 mg/dL Normal 0.66-1.25 [facility] Comment on above: Performed By: #### L [id number] ####Steam Shovel Engineer: ARA WRIGHT ([id number])[facility] ([facility])[address] [place] [address] GLOMERULAR FILTRATION RATE ML/MIN/1.73 SQ M.PREDICTED >90.0 Normal >60.0 [facility] Comment on above: Result Comment: Calc ulation based on the Chronic Kidney Disease Epidemiology Collaboration (CKD-EPI) equation refit without adjustment for race Performed By: #### L [id number] ####Steam Shovel Engineer: ARA WRIGHT ([id number])[facility] ([facility])[address] [place] [address] Glucose [Mass/Vol] 125 mg/dL High 70-100 [facility] Comment on above: Performed By: #### L [id number] ####Steam Shovel Engineer: ARA WRIGHT ([id number])[facility] ([facility])[address] [place] [address] Potassium [Moles/Vol] 3.9 mmol/L Normal 3.5-5.1 [facility] Comment on above: Performed By: #### L AB15 ####Steam Shovel Engineer: ARA WRIGHT ([id number])[facility] ([facility])[address] [place] [address] Sodium [Moles/Vol] 135 mmol/L Normal 135-145 [facility] Comment on above: Performed By: #### L AB15 ####Steam Shovel Engineer: ARA WRIGHT ([id number])[facility])[address] [place] [address] Urea nitrogen [Mass/Vol] 8 mg/dL Low 9-20 [facility] Comment on above: Performed By: #### L AB15 ####Steam Shovel Engineer: ARA WRIGHT ([id number])[facility])[address] [place] [address] Basic metabolic 1998 panelon 07-09-2024 Anion gap [Moles/Vol] 8 mmol/L 3 - 13 mmol/L [facility] Calcium [Mass/Vol] 9.0 mg/dL 8.4 - 10. 4 mg/dL [facility] Chloride [Moles/Vol] 109 mmol/L High 98 - 10 7 mmol/L [facility] CO2 [Moles/Vol] 18 mmol/L Low 22 - 30 mmol/L [facility] Creatinine [Mass/Vol] 0.93 mg/dL 0.66 - 1.25 mg/dL [facility] GFR/1.73 sq M.predicted (S/P/Bld) [Vol rate/Area] - PINF [facility] Comment on above: Calculation based on the Chronic Kidney Disease Epidemiology Collaboration (CKD-EPI) equation refit without adjustment for race Glucose [Mass/Vol] 125 mg/dL High 70 - 100 mg/dL [facility] Interpretation and review of laboratory results Abnormal [facility] Potassium [Moles/Vol] 3.9 mmol/L 3.5 - 5.1 mmol/L [facility] Sodium [Moles/Vol] 135 mmol/L 135 - 145 mmol/L [facility] Urea nitrogen [Mass/Vol] 8 mg/dL Low 9 - 20 mg/dL [facility] CBC (HEMOGRAM)on 07-09-2024 Erythrocyte distribution width (RBC) [Ratio] 13.9 % Normal 11.5-15.0 [facility] Comment on above: Performed By: #### L [id number] ####Steam Shovel Engineer: ARA WRIGHT ([id number])[address] Hematocrit (Bld) [Volume fraction] 28.3 % Low 40.0-52.0 [facility] Comment on above: Performed By: #### L [id number] ####Steam Shovel Engineer: ARA WRIGHT ([id number])[address] Hemoglobin (Bld) [Mass/Vol] 9.8 g/dL Low 13.0-18.0 [facility] Comment on above: Performed By: #### L [id number] ####Steam Shovel Engineer: ARA WRIGHT ([id number])[facility])[address] [place] [address] MCH (RBC) [Entitic mass] 30.8 pg Normal 26.0-34.0 [facility] Comment on above: Performed By: #### L [id number] ####Steam Shovel Engineer: ARA WRIGHT ([id number])[address] MCHC 34.6 % Normal 30.5-36.0 [facility] Comment on above: Performed By: #### L [id number] ####Steam Shovel Engineer: ARA WRIGHT ([id number])[facility])[address] [place] [address] MCV (RBC) [Entitic vol] 89.0 fL Normal 77.0-99.0 [facility] Comment on above: Performed By: #### L [id number] ####Steam Shovel Engineer: ARA WRIGHT ([id number])[facility])[address] [place] [address] Platelet mean volume (Bld) [Entitic vol] 9.7 fL Normal 9.0-12.7 [facility] Comment on above: Performed By: #### L [id number] ####Steam Shovel Engineer: ARA WRIGHT ([id number])[facility])[address] [place] [address] Platelets (Bld) [#/Vol] 164 10*3/uL Normal 140-440 [facility] Comment on above: Performed By: #### L [id number] ####Steam Shovel Engineer: ARA WRIGHT ([id number])[facility])[address] [place] [address] RBC (Bld) [#/Vol] 3.18 10*6/uL Low 4.40-5.90 [facility] Comment on above: Performed By: #### L [id number] ####Steam Shovel Engineer: ARA WRIGHT ([phone])[facility])[address] [place] [address] WBC (Bld) [#/Vol] 6.3 10*3/uL Normal 3.6-10.7 [facility] Comment on above: Performed By: #### L [id number] ####Steam Shovel Engineer: ARA WRIGHT ([phone])[facility])[address] [place] [address] CBC panel Auto (Bld)on 07-09 Erythrocyte distribution width (RBC) [Ratio] 13.9 % 11.5 - 15.0 % [facility] Hematocrit (Bld) [Volume fraction] 28.3 % Low 40.0 - 52.0 % [facility] Hemoglobin (Bld) [Mass/Vol] 9.8 g/dL Low 13.0 - 18.0 g/dL [facility] Interpretation and review of laboratory results Abnormal [facility] MCH (RBC) [Entitic mass] 30.8 pg 26.0 - 34.0 pg [facility] MCHC (RBC) [Mass/Vol] 34.6 % 30.5 - 36.0 % [facility] MCV (RBC) [Entitic vol] 89.0 fL 77.0 - 99.0 fL [facility] Platelet mean volume (Bld) [Entitic vol] 9.7 fL 9.0 - 12.7 fL [facility] Platelets (Bld) [#/Vol] 164 10*3/uL 140 - 440 10*3/uL [facility] RBC (Bld) [#/Vol] 3.18 10*6/uL Low 4.40 - 5.9 0 10*6/uL [facility] WBC (Bld) [#/Vol] 6.3 10*3/uL 3.6 - 10.7 10*3/uL [facility] IDNon 07-09-2024 IDN Normal [facility] Nursing Noteon 07-09-2024 Nursing Note Normal [facility] Progress Noteon 07-09-2024 Progress Note Normal [facility] BASIC METABOLIC PANELon 06-20 Anion gap [Moles/Vol] 5 mmol/L Normal 3-13 [facility] Comment on above: Performed By: #### L [id number] ####Steam Shovel Engineer: ARA WRIGHT ([id number])[facility] ([facility])[address] [place] [address] Calcium [Mass/Vol] 8.9 mg/dL Normal 8.4-10.4 [facility] Comment on above: Performed By: #### L [id number] ####Steam Shovel Engineer: ARA WRIGHT ([id number])[facility] ([facility])[address] [place] [address] Chloride [Moles/Vol] 108 mmol/L High 98-107 [facility] Comment on above: Performed By: #### L AB15 ####Steam Shovel Engineer: ARA WRIGHT ([id number])[facility])[address] [place] [address] CO2 [Moles/Vol] 22 mmol/L Normal 22-30 [facility] Comment on above: Performed By: #### L AB15 ####Steam Shovel Engineer: ARA WRIGHT ([id number])[facility])[address] [place] [address] Creatinine [Mass/Vol] 0.90 mg/dL Normal 0.66-1.25 [facility] Comment on above: Performed By: #### L AB15 ####Steam Shovel Engineer: ARA WRIGHT ([phone])[facility])[address] [place] [address] GLOMERULAR FILTRATION RATE ML/MIN/1.73 SQ M.PREDICTED >90.0 Normal >60.0 [facility] Comment on above: Result Comment: Calc ulation based on the Chronic Kidney Disease Epidemiology Collaboration (CKD-EPI) equation refit without adjustment for race Performed By: #### L AB15 ####Steam Shovel Engineer: ARA WRIGHT ([id number])[facility])[address] [place] [address] Glucose [Mass/Vol] 97 mg/dL Normal 70-100 [facility] Comment on above: Performed By: #### L AB15 ####Steam Shovel Engineer: ARA WRIGHT ([id number])[facility] ([facility])[address] [place] [address] [place] Potassium [Moles/Vol] 4.0 mmol/L Normal 3.5-5.1 [facility] Comment on above: Performed By: #### L AB15 ####Steam Shovel Engineer: ARA WRIGHT ([id number])[facility])[address] [place] [address] [place] Sodium [Moles/Vol] 135 mmol/L Normal 135-145 [facility] Comment on above: Performed By: #### L AB15 ####Steam Shovel Engineer: ARA WRIGHT ([id number])[address] Urea nitrogen [Mass/Vol] 8 mg/dL Low 9-20 [facility] Comment on above: Performed By: #### L AB15 ####Steam Shovel Engineer: ARA WRIGHT ([phone])[facility])[address] [place] [address] Basic metabolic 1998 panelon 07-08-2024 Anion gap [Moles/Vol] 5 mmol/L 3 - 13 mmol/L [facility] Calcium [Mass/Vol] 8.9 mg/dL 8.4 - 10. 4 mg/dL [facility] Chloride [Moles/Vol] 108 mmol/L High 98 - 10 7 mmol/L [facility] CO2 [Moles/Vol] 22 mmol/L 22 - 30 mmol/L [facility] Creatinine [Mass/Vol] 0.90 mg/dL 0.66 - 1.25 mg/dL [facility] GFR/1.73 sq M.predicted (S/P/Bld) [Vol rate/Area] - PINF [facility] Comment on above: Calculation based on the Chronic Kidney Disease Epidemiology Collaboration (CKD-EPI) equation refit without adjustment for race Glucose [Mass/Vol] 97 mg/dL 70 - 100 mg/dL [facility] Interpretation and review of laboratory results Abnormal [facility] Potassium [Moles/Vol] 4.0 mmol/L 3.5 - 5.1 mmol/L [facility] Sodium [Moles/Vol] 135 mmol/L 135 - 145 mmol/L [facility] Urea nitrogen [Mass/Vol] 8 mg/dL Low 9 - 20 mg/dL [facility] CARECOORDon 07-08-2024 CARECOORD Normal [facility] CAR[place]OORD Normal [facility] CBC (HEMOGRAM)on 07-08-2024 Erythrocyte distribution width (RBC) [Ratio] 13.8 % Normal 11.5-15.0 [facility] Comment on above: Performed By: #### L [id number] ####Steam Shovel Engineer: ARA WRIGHT ([id number])[facility] ([facility])[address] [place] [address] Hematocrit (Bld) [Volume fraction] 29.1 % Low 40.0-52.0 [facility] Comment on above: Performed By: #### L [id number] ####Steam Shovel Engineer: ARA WRIGHT ([id number])[facility])[address] [place] [address] Hemoglobin (Bld) [Mass/Vol] 10.0 g/dL Low 13.0-18.0 [facility] Comment on above: Performed By: #### L [id number] ####Steam Shovel Engineer: ARA WRIGHT ([id number])[facility])[address] [place] [address] MCH (RBC) [Entitic mass] 30.8 pg Normal 26.0-34.0 [facility] Comment on above: Performed By: #### L [id number] ####Steam Shovel Engineer: ARA WRIGHT ([id number])[facility] ([facility])[address] [place] [address] MCHC 34.4 % Normal 30.5-36.0 [facility] Comment on above: Performed By: #### L [id number] ####Steam Shovel Engineer: ARA WRIGHT ([phone])[facility])[address] [place] [address] MCV (RBC) [Entitic vol] 89.5 fL Normal 77.0-99.0 [facility] Comment on above: Performed By: #### L [id number] ####Steam Shovel Engineer: ARA WRIGHT ([id number])[facility])[address] [place] [address] Platelet mean volume (Bld) [Entitic vol] 9.5 fL Normal 9.0-12.7 [facility] Comment on above: Performed By: #### L [id number] ####Steam Shovel Engineer: ARA WRIGHT ([id number])[facility])[address] [place] [address] Platelets (Bld) [#/Vol] 172 10*3/uL Normal 140-440 [facility] Comment on above: Performed By: #### L [id number] ####Steam Shovel Engineer: ARA WRIGHT ([id number])[address] RBC (Bld) [#/Vol] 3.25 10*6/uL Low 4.40-5.90 [facility] Comment on above: Performed By: #### L [id number] ####Steam Shovel Engineer: ARA WRIGHT ([id number])[facility])[address] [place] [address] WBC (Bld) [#/Vol] 5.4 10*3/uL Normal 3.6-10.7 [facility] Comment on above: Performed By: #### L [id number] ####Steam Shovel Engineer: ARA WRIGHT ([id number])[address] CBC panel Auto (Bld)on 07-08 Erythrocyte distribution width (RBC) [Ratio] 13.8 % 11.5 - 15.0 % [facility] Hematocrit (Bld) [Volume fraction] 29.1 % Low 40.0 - 52.0 % [facility] Hemoglobin (Bld) [Mass/Vol] 10.0 g/dL Low 13.0 - 18.0 g/dL [facility] Interpretation and review of laboratory results Abnormal [facility] MCH (RBC) [Entitic mass] 30.8 pg 26.0 - 34.0 pg [facility] MCHC (RBC) [Mass/Vol] 34.4 % 30.5 - 36.0 % [facility] MCV (RBC) [Entitic vol] 89.5 fL 77.0 - 99.0 fL [facility] Platelet mean volume (Bld) [Entitic vol] 9.5 fL 9.0 - 12.7 fL [facility] Platelets (Bld) [#/Vol] 172 10*3/uL 140 - 440 10*3/uL [facility] RBC (Bld) [#/Vol] 3.25 10*6/uL Low 4.40 - 5.9 0 10*6/uL [facility] WBC (Bld) [#/Vol] 5.4 10*3/uL 3.6 - 10.7 10*3/uL [facility] IDNon 07-08-2024 IDN Normal [facility] IDN Normal [facility] IDN Normal [facility] Laboratory - Chemistry and C hemistry - challengeon 07-08-2024 Fat Ql (Stl) Normal Normal [facility] Comment on above: INTERPRETIVE INFORMA TION: Fecal Fat Qualitative Neutral fats include the monoglycerides, diglycerides, and triglycerides while split fats are the free fatty acids that are liberated from them. Impaired synthesis or secretion of pancreatic enzymes or bile may cause an increase in neutral fats while an increase in split fats suggests impaired absorption of nutrients. Performed By: [facility] [address] [place] [id number] Assessment Nurse Practitioner: Ana Heredia MD, PhD CLIA Number: [id number] Fat.neutral Ql (Stl) Normal Normal [facility] Panel Informationon 07-08 [facility] Progress Noteon 07-08-2024 Progress Note Normal [facility] Progress Note Normal [facility] Progress Note Normal [facility] Progress Note Normal [facility] 36on 07-07-2024 36 Pt is currently admi tted. Will contact pt when he get discharge. Thank you [facility] 36 GI Staff to schedule d hospital follow up and colonoscopy once discharged. Normal [facility] BASIC METABOLIC PANELon 06-19 Anion gap [Moles/Vol] 5 mmol/L Normal 3-13 [facility] Comment on above: Performed By: #### L AB15 ####Steam Shovel Engineer: ARA WRIGHT ([id number])[facility] ([facility])[address] [place] [address] Calcium [Mass/Vol] 8.5 mg/dL Normal 8.4-10.4 [facility] Comment on above: Performed By: #### L AB15 ####Steam Shovel Engineer: ARA WRIGHT ([id number])[facility] ([facility])[address] [place] [address] Chloride [Moles/Vol] 111 mmol/L High 98-107 [facility] Comment on above: Performed By: #### L AB15 ####Steam Shovel Engineer: ARA WRIGHT ([id number])[facility])[address] [place] [address] CO2 [Moles/Vol] 17 mmol/L Low 22-30 [facility] Comment on above: Performed By: #### L AB15 ####Steam Shovel Engineer: ARA WRIGHT ([phone])[facility])[address] [place] [address] Creatinine [Mass/Vol] 0.86 mg/dL Normal 0.66-1.25 [facility] Comment on above: Performed By: #### L AB15 ####Steam Shovel Engineer: ARA WRIGHT ([phone])[facility])[address] [place] [address] GLOMERULAR FILTRATION RATE ML/MIN/1.73 SQ M.PREDICTED >90.0 Normal >60.0 [facility] Comment on above: Result Comment: Calc ulation based on the Chronic Kidney Disease Epidemiology Collaboration (CKD-EPI) equation refit without adjustment for race Performed By: #### L AB15 ####Steam Shovel Engineer: ARA WRIGHT ([phone])[address] Glucose [Mass/Vol] 131 mg/dL High 70-100 [facility] Comment on above: Performed By: #### L AB15 ####Steam Shovel Engineer: ARA WRIGHT ([phone])[facility])[address] [place] [address] Potassium [Moles/Vol] 3.9 mmol/L Normal 3.5-5.1 [facility] Comment on above: Performed By: #### L AB15 ####Steam Shovel Engineer: ARA WRIGHT ([phone])[facility])[address] [place] [address] Sodium [Moles/Vol] 134 mmol/L Low 135-145 [facility] Comment on above: Performed By: #### L AB15 ####Steam Shovel Engineer: ARA [id number])[facility] [place] [address] Urea nitrogen [Mass/Vol] 9 mg/dL Normal 9-20 [facility] Comment on above: Performed By: #### L AB15 ####Steam Shovel Engineer: ARA WRIGHT ([id number])[facility] ([facility])[address] [place] [address] Basic metabolic 1998 panelon 07-07-2024 Anion gap [Moles/Vol] 5 mmol/L 3 - 13 mmol/L [facility] Calcium [Mass/Vol] 8.5 mg/dL 8.4 - 10. 4 mg/dL [facility] Chloride [Moles/Vol] 111 mmol/L High 98 - 10 7 mmol/L [facility] CO2 [Moles/Vol] 17 mmol/L Low 22 - 30 mmol/L [facility] Creatinine [Mass/Vol] 0.86 mg/dL 0.66 - 1.25 mg/dL [facility] GFR/1.73 sq M.predicted (S/P/Bld) [Vol rate/Area] - PINF [facility] Comment on above: Calculation based on the Chronic Kidney Disease Epidemiology Collaboration (CKD-EPI) equation refit without adjustment for race Glucose [Mass/Vol] 131 mg/dL High 70 - 100 mg/dL [facility] Interpretation and review of laboratory results Abnormal [facility] Potassium [Moles/Vol] 3.9 mmol/L 3.5 - 5.1 mmol/L [facility] Sodium [Moles/Vol] 134 mmol/L Low 135 - 145 mmol/L [facility] Urea nitrogen [Mass/Vol] 9 mg/dL 9 - 20 mg/dL [facility] CARECOORDon 07-07-2024 CARECOORD Normal [facility] CBC (HEMOGRAM)on 07-07-2024 Erythrocyte distribution width (RBC) [Ratio] 13.6 % Normal 11.5-15.0 [facility] Comment on above: Performed By: #### L [id number] ####Steam Shovel Engineer: ARA WRIGHT ([phone])[facility] [place] [address] Hematocrit (Bld) [Volume fraction] 27.4 % Low 40.0-52.0 [facility] Comment on above: Performed By: #### L AB294 ####Steam Shovel Engineer: ARA WRIGHT ([phone])[facility])[address] [place] [address] Hemoglobin (Bld) [Mass/Vol] 9.5 g/dL Low 13.0-18.0 [facility] Comment on above: Performed By: #### L AB294 ####Steam Shovel Engineer: ARA WRIGHT ([id number])[facility] ([facility])[address] [place] [address] MCH (RBC) [Entitic mass] 30.7 pg Normal 26.0-34.0 [facility] Comment on above: Performed By: #### L AB294 ####Steam Shovel Engineer: ARA WRIGHT ([phone])[facility])[address] [place] [address] MCHC 34.7 % Normal 30.5-36.0 [facility] Comment on above: Performed By: #### L AB294 ####Steam Shovel Engineer: ARA WRIGHT ([phone])[facility])[address] [place] [address] MCV (RBC) [Entitic vol] 88.7 fL Normal 77.0-99.0 [facility] Comment on above: Performed By: #### L AB294 ####Steam Shovel Engineer: ARA WRIGHT ([phone])[facility])[address] [place] [address] Platelet mean volume (Bld) [Entitic vol] 9.7 fL Normal 9.0-12.7 [facility] Comment on above: Performed By: #### L AB294 ####Steam Shovel Engineer: ARA WRIGHT ([phone])[facility])[address] [place] [address] Platelets (Bld) [#/Vol] 176 10*3/uL Normal 140-440 [facility] Comment on above: Performed By: #### L AB294 ####Steam Shovel Engineer: ARA WRIGHT ([phone])[facility])[address] [place] [address] RBC (Bld) [#/Vol] 3.09 10*6/uL Low 4.40-5.90 [facility] Comment on above: Performed By: #### L AB294 ####Steam Shovel Engineer: ARA WRIGHT ([phone])[facility])[address] [place] [address] WBC (Bld) [#/Vol] 5.3 10*3/uL Normal 3.6-10.7 [facility] Comment on above: Performed By: #### L AB294 ####Steam Shovel Engineer: ARA WRIGHT ([id number])[facility] ([facility])[address] [place] [address] CBC panel Auto (Bld)on 07-07 Erythrocyte distribution width (RBC) [Ratio] 13.6 % 11.5 - 15.0 % [facility] Hematocrit (Bld) [Volume fraction] 27.4 % Low 40.0 - 52.0 % [facility] Hemoglobin (Bld) [Mass/Vol] 9.5 g/dL Low 13.0 - 18.0 g/dL [facility] Interpretation and review of laboratory results Abnormal [facility] MCH (RBC) [Entitic mass] 30.7 pg 26.0 - 34.0 pg [facility] MCHC (RBC) [Mass/Vol] 34.7 % 30.5 - 36.0 % [facility] MCV (RBC) [Entitic vol] 88.7 fL 77.0 - 99.0 fL [facility] Platelet mean volume (Bld) [Entitic vol] 9.7 fL 9.0 - 12.7 fL [facility] Platelets (Bld) [#/Vol] 176 10*3/uL 140 - 440 10*3/uL [facility] RBC (Bld) [#/Vol] 3.09 10*6/uL Low 4.40 - 5.9 0 10*6/uL [facility] WBC (Bld) [#/Vol] 5.3 10*3/uL 3.6 - 10.7 10*3/uL [facility] IDNon 07-07-2024 IDN Normal [facility] IDN Normal [facility] IDN Normal [facility] Nursing Noteon 07-07-2024 Nursing Note This nurse entered r oom, patient was bleeding from his Right arm he had pulled off a piece of skin stating "I'm a last picker". 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 Notified Physician. Normal [facility] Progress Noteon 07-07-2024 Progress Note Normal [facility] Progress Note Normal [facility] Progress Note Normal [facility] Progress Note Normal [facility] Progress Note Normal [facility] 36on 07-06-2024 36 Patient evaluated inpatient for diarrhea and abdominal pain. Needs OP colonoscopy. OV and please use inpatient colon spot for colonoscopy. Ok for LEENA. Normal [facility] BASIC METABOLIC PANELon 06-19 Anion gap [Moles/Vol] 10 mmol/L Normal 3-13 [facility] Comment on above: Performed By: #### L AB103, LAB15 ####Steam Shovel Engineer: ARA WRIGHT ([phone])[address] Calcium [Mass/Vol] 8.9 mg/dL Normal 8.4-10.4 [facility] Comment on above: Performed By: #### L AB103, LAB15 ####Steam Shovel Engineer: ARA WRIGHT ([id number])[facility] ([facility])[address] [place] [address] [place] Chloride [Moles/Vol] 108 mmol/L High 98-107 [facility] Comment on above: Performed By: #### L AB103, LAB15 ####Steam Shovel Engineer: ARA WRIGHT ([phone])[facility])[address] [place] [address] [place] CO2 [Moles/Vol] 16 mmol/L Low 22-30 [facility] Comment on above: Performed By: #### L AB103, LAB15 ####Steam Shovel Engineer: ARA WRIGHT ([phone])[facility])[address] [place] [address] Creatinine [Mass/Vol] 0.93 mg/dL Normal 0.66-1.25 [facility] Comment on above: Performed By: #### L AB103, LAB15 ####Steam Shovel Engineer: ARA WRIGHT ([phone])[facility])[address] [place] [address] GLOMERULAR FILTRATION RATE ML/MIN/1.73 SQ M.PREDICTED >90.0 Normal >60.0 [facility] Comment on above: Result Comment: Calc ulation based on the Chronic Kidney Disease Epidemiology Collaboration (CKD-EPI) equation refit without adjustment for race Performed By: #### L AB103, LAB15 ####Steam Shovel Engineer: ARA WRIGHT ([id number])[facility] ([facility])[address] [place] [address] Glucose [Mass/Vol] 184 mg/dL High 70-100 [facility] Comment on above: Performed By: #### L AB103, LAB15 ####Steam Shovel Engineer: ARA WRIGHT ([phone])[facility])[address] [place] [address] [place] Potassium [Moles/Vol] 3.4 mmol/L Low 3.5-5.1 [facility] Comment on above: Performed By: #### L AB103, LAB15 ####Steam Shovel Engineer: ARA WRIGHT ([id number])[facility])[address] [place] [address] [place] Sodium [Moles/Vol] 135 mmol/L Normal 135-145 [facility] Comment on above: Performed By: #### L AB103, LAB15 ####Steam Shovel Engineer: ARA WRIGHT ([id number])[facility] ([facility])[address] [place] [address] [place] Urea nitrogen [Mass/Vol] 13 mg/dL Normal 9-20 [facility] Comment on above: Performed By: #### L AB103, LAB15 ####Steam Shovel Engineer: ARA WRIGHT ([id number])[facility] ([facility])[address] [place] [address] Basic metabolic 1998 panelon 07-06-2024 Anion gap [Moles/Vol] 10 mmol/L 3 - 13 mmol/L [facility] Calcium [Mass/Vol] 8.9 mg/dL 8.4 - 10. 4 mg/dL [facility] Chloride [Moles/Vol] 108 mmol/L High 98 - 10 7 mmol/L [facility] CO2 [Moles/Vol] 16 mmol/L Low 22 - 30 mmol/L [facility] Creatinine [Mass/Vol] 0.93 mg/dL 0.66 - 1.25 mg/dL [facility] GFR/1.73 sq M.predicted (S/P/Bld) [Vol rate/Area] - PINF [facility] Comment on above: Calculation based on the Chronic Kidney Disease Epidemiology Collaboration (CKD-EPI) equation refit without adjustment for race Glucose [Mass/Vol] 184 mg/dL High 70 - 100 mg/dL [facility] Interpretation and review of laboratory results Abnormal [facility] Potassium [Moles/Vol] 3.4 mmol/L Low 3.5 - 5.1 mmol/L [facility] Sodium [Moles/Vol] 135 mmol/L 135 - 145 mmol/L [facility] Urea nitrogen [Mass/Vol] 13 mg/dL 9 - 20 mg/dL [facility] CARECOORDon 07-06-2024 CARECOORD Normal [facility] CBC (HEMOGRAM)on 07-06-2024 Erythrocyte distribution width (RBC) [Ratio] 13.3 % Normal 11.5-15.0 [facility] Comment on above: Performed By: #### L [id number] ####Steam Shovel Engineer: ARA WRIGHT ([id number])[facility] ([facility])[address] [place] [address] Hematocrit (Bld) [Volume fraction] 33.1 % Low 40.0-52.0 [facility] Comment on above: Performed By: #### L [id number] ####Steam Shovel Engineer: ARA WRIGHT ([id number])[facility] ([facility])[address] [place] [address] Hemoglobin (Bld) [Mass/Vol] 11.1 g/dL Low 13.0-18.0 [facility] Comment on above: Performed By: #### L [id number] ####Steam Shovel Engineer: ARA WRIGHT ([id number])[facility])[address] [place] [address] MCH (RBC) [Entitic mass] 30.2 pg Normal 26.0-34.0 [facility] Comment on above: Performed By: #### L AB294 ####Steam Shovel Engineer: ARA WRIGHT ([phone])[facility])[address] [place] [address] MCHC 33.5 % Normal 30.5-36.0 [facility] Comment on above: Performed By: #### L AB294 ####Steam Shovel Engineer: ARA WRIGHT ([phone])[facility])[address] [place] [address] MCV (RBC) [Entitic vol] 90.2 fL Normal 77.0-99.0 [facility] Comment on above: Performed By: #### L AB294 ####Steam Shovel Engineer: ARA WRIGHT ([phone])[facility])[address] [place] [address] Platelet mean volume (Bld) [Entitic vol] 9.2 fL Normal 9.0-12.7 [facility] Comment on above: Performed By: #### L [id number] ####Steam Shovel Engineer: ARA WRIGHT ([id number])[facility])[address] [place] [address] Platelets (Bld) [#/Vol] 192 10*3/uL Normal 140-440 [facility] Comment on above: Performed By: #### L [id number] ####Steam Shovel Engineer: ARA WRIGHT ([id number])[facility])[address] [place] [address] RBC (Bld) [#/Vol] 3.67 10*6/uL Low 4.40-5.90 [facility] Comment on above: Performed By: #### L AB294 ####Steam Shovel Engineer: ARA [id number])[facility] ([facility])[address] [place] [address] WBC (Bld) [#/Vol] 4.5 10*3/uL Normal 3.6-10.7 [facility] Comment on above: Performed By: #### L [id number] ####Steam Shovel Engineer: ARA WRIGHT ([id number])[facility] ([facility])[address] [place] [address] CBC panel Auto (Bld)on 07-06 Erythrocyte distribution width (RBC) [Ratio] 13.3 % 11.5 - 15.0 % [facility] Hematocrit (Bld) [Volume fraction] 33.1 % Low 40.0 - 52.0 % [facility] Hemoglobin (Bld) [Mass/Vol] 11.1 g/dL Low 13.0 - 18.0 g/dL [facility] Interpretation and review of laboratory results Abnormal [facility] MCH (RBC) [Entitic mass] 30.2 pg 26.0 - 34.0 pg [facility] MCHC (RBC) [Mass/Vol] 33.5 % 30.5 - 36.0 % [facility] MCV (RBC) [Entitic vol] 90.2 fL 77.0 - 99.0 fL [facility] Platelet mean volume (Bld) [Entitic vol] 9.2 fL 9.0 - 12.7 fL [facility] Platelets (Bld) [#/Vol] 192 10*3/uL 140 - 440 10*3/uL [facility] RBC (Bld) [#/Vol] 3.67 10*6/uL Low 4.40 - 5.9 0 10*6/uL [facility] WBC (Bld) [#/Vol] 4.5 10*3/uL 3.6 - 10.7 10*3/uL [facility] IDNon 07-06-2024 IDN Normal [facility] Laboratory - Chemistry and C hemistry - challengeon 07-06-2024 Magnesium [Mass/Vol] 1.4 mg/dL Low 1.6 - 2 .3 mg/dL [facility] MAGNESIUMon 07-06-2024 Magnesium [Mass/Vol] 1.4 mg/dL Low 1.6-2.3 [facility] Comment on above: Performed By: #### L AB103, LAB15 ####Steam Shovel Engineer: ARA WRIGHT ([id number])[facility] ([facility])[address] [place] [address] [place] Magnesium [Mass/Vol]on 07-06 Interpretation and review of laboratory results Abnormal [facility] Progress Noteon 07-06-2024 Progress Note Normal [facility] Progress Note Normal [facility] Progress Note Normal [facility] Progress Note Normal [facility] BASIC METABOLIC PANELon 06-19 Anion gap [Moles/Vol] 8 mmol/L Normal 3-13 [facility] Comment on above: Performed By: #### L AB99, LAB15 ####Steam Shovel Engineer: ARA WRIGHT ([phone])[facility] ([facility])[address] [place] [address] Calcium [Mass/Vol] 8.6 mg/dL Normal 8.4-10.4 [facility] Comment on above: Performed By: #### L AB99, LAB15 ####Steam Shovel Engineer: ARA WRIGHT ([phone])[facility] ([facility])[address] [place] [address] [place] Chloride [Moles/Vol] 100 mmol/L Normal 98-107 [facility] Comment on above: Performed By: #### L AB99, LAB15 ####Steam Shovel Engineer: ARA WRIGHT ([phone])[facility] ([facility])[address] [place] [address] [place] CO2 [Moles/Vol] 18 mmol/L Low 22-30 [facility] Comment on above: Performed By: #### L AB99, LAB15 ####Steam Shovel Engineer: ARA WRIGHT ([phone])[facility])[address] [place] [address] [place] Creatinine [Mass/Vol] 1.13 mg/dL Normal 0.66-1.25 [facility] Comment on above: Performed By: #### L AB99, LAB15 ####Steam Shovel Engineer: ARA WRIGHT ([phone])[facility])[address] [place] [address] GLOMERULAR FILTRATION RATE ML/MIN/1.73 SQ M.PREDICTED 72.6 mL/min/1.73m*2 Normal >60.0 [facility] Comment on above: Result Comment: Calc ulation based on the Chronic Kidney Disease Epidemiology Collaboration (CKD-EPI) equation refit without adjustment for race Performed By: #### L AB99, LAB15 ####Steam Shovel Engineer: ARA WRIGHT ([id number])[facility] ([facility])[address] [place] [address] Glucose [Mass/Vol] 125 mg/dL High 70-100 [facility] Comment on above: Performed By: #### L AB99, LAB15 ####Steam Shovel Engineer: ARA WRIGHT ([phone])[facility])[address] [place] [address] Potassium [Moles/Vol] 3.1 mmol/L Low 3.5-5.1 [facility] Comment on above: Performed By: #### L AB99, LAB15 ####Steam Shovel Engineer: ARA WRIGHT ([id number])[facility] ([facility])[address] [place] [address] Sodium [Moles/Vol] 127 mmol/L Low 135-145 [facility] Comment on above: Performed By: #### L AB99, LAB15 ####Steam Shovel Engineer: ARA WRIGHT ([phone])[facility])[address] [place] [address] Urea nitrogen [Mass/Vol] 17 mg/dL Normal 9-20 [facility] Comment on above: Performed By: #### L AB99, LAB15 ####Steam Shovel Engineer: ARA WRIGHT ([phone])[facility])[address] [place] [address] Basic metabolic 1998 panelOr dered By: Gold Diaz on 07-05-2024 Anion gap [Moles/Vol] 8 mmol/L 3 - 13 mmol/L [facility] Calcium [Mass/Vol] 8.6 mg/dL 8.4 - 10. 4 mg/dL [facility] Chloride [Moles/Vol] 100 mmol/L 98 - 10 7 mmol/L [facility] CO2 [Moles/Vol] 18 mmol/L Low 22 - 30 mmol/L [facility] Creatinine [Mass/Vol] 1.13 mg/dL 0.66 - 1.25 mg/dL [facility] GFR/1.73 sq M.predicted (S/P/Bld) [Vol rate/Area] 72.6 mL/min - PINF [facility] Comment on above: Calculation based on the Chronic Kidney Disease Epidemiology Collaboration (CKD-EPI) equation refit without adjustment for race Glucose [Mass/Vol] 125 mg/dL High 70 - 100 mg/dL [facility] Interpretation and review of laboratory results Abnormal [facility] Potassium [Moles/Vol] 3.1 mmol/L Low 3.5 - 5.1 mmol/L [facility] Sodium [Moles/Vol] 127 mmol/L Low 135 - 145 mmol/L [facility] Urea nitrogen [Mass/Vol] 17 mg/dL 9 - 20 mg/dL [facility] C. DIFFICILE BY PCR WITH REF BEATRICE TO EIAon 07-05-2024 C. DIFFICILE BY PCR WITH REFLEX TO EIA C. DIFFICILE TOXIN PCR Reference Not Detected Not Detected ORDER COMMENTS: C. difficile infection is unlikely to be present. Methodology: Real-time PCR Normal [facility] Comment on above: Performed By: #### L [id number], [id number] ####Steam Shovel Engineer: ARA WRIGHT ([phone])[address] C. difficile toxin genes SHANE +probe Ql (Stl)on 07-05-2024 C. difficile toxin B tcdB gene SHANE+probe Ql (Stl) Not detected Not Detected [facility] Interpretation and review of laboratory results Normal [facility] C. difficile infecti on is unlikely to be present. Methodology: Real-time PCR [facility] CALPROTECTIN STOOL (BKR QUES T)on 07-05-2024 [facility] CALPROTECTIN, STOOL 38 mcg/g Normal [facility] Comment on above: Result Comment: Refe rence Range: <50 Normal 50-120 Borderline >120 ElevatedCalprotectin in Crohn's disease and ulcerativecolitis can be five to several thousand timesabove the reference population (50 mcg/g or less).Levels are usually 50 mcg/g or less in healthypatients and with irritable bowel syndrome. Repeattesting in 4-6 weeks is suggested for borderlinevalues.Test performed by [employer] [address] [place] [address] [employer] Director: Rochelle Rodriguez MD,PHD,MBATest Reported by [facility] NetworksC[facility],[employer] [facility],[address] [place], [place] [address]Toko[employer]qhaider [employer]oto M.D., Ph.D., Director of [phone], [place] [id number] Performed By: #### L [id number] ####[employer] ([employer]DB[employer])[id number] [place], [place] CBC W Auto Differential pane l (Bld)on 07-05-2024 Basophils (Bld) [#/Vol] 0.1 10*3/uL 0.0 - 0.2 10*3/uL [facility] Basophils/100 WBC (Bld) 0.7 % 0.0 - 2.0 % [facility] Eosinophils (Bld) [#/Vol] 0.1 10*3/uL 0.0 - 0.5 10*3/uL [facility] Eosinophils/100 WBC (Bld) 2.1 % 0.0 - 6.0 % [facility] Erythrocyte distribution width (RBC) [Ratio] 12.8 % 11.5 - 15.0 % [facility] Hematocrit (Bld) [Volume fraction] 31.6 % Low 40.0 - 52.0 % [facility] Hemoglobin (Bld) [Mass/Vol] 10.9 g/dL Low 13.0 - 18.0 g/dL [facility] Immature granulocytes (Bld) [#/Vol] 0.0 10*3/uL NINF - 0.1 10*3/uL [facility] Immature granulocytes/100 WBC (Bld) 0.4 % 0.0 - 2.0 % [facility] Interpretation and review of laboratory results Abnormal [facility] Lymphocytes (Bld) [#/Vol] 1.6 10*3/uL 1.0 - 4.3 10*3/uL [facility] Lymphocytes/100 WBC (Bld) 24.0 % 15.0 - 45.0 % [facility] MCH (RBC) [Entitic mass] 29.8 pg 26.0 - 34.0 pg [facility] MCHC (RBC) [Mass/Vol] 34.5 % 30.5 - 36.0 % [facility] MCV (RBC) [Entitic vol] 86.3 fL 77.0 - 99.0 fL [facility] Monocytes (Bld) [#/Vol] 0.6 10*3/uL 0.0 - 0.9 10*3/uL [facility] Monocytes/100 WBC (Bld) 9.1 % 5.0 - 13.0 % [facility] Neutrophils (Bld) [#/Vol] 4.3 10*3/uL 1.8 - 7.5 10*3/uL [facility] Neutrophils/100 WBC (Bld) 63.7 % 38.0 - 82.0 % [facility] Nucleated RBC/100 WBC (Bld) [Ratio] 0.0 % [facility] Platelet mean volume (Bld) [Entitic vol] 9.1 fL 9.0 - 12.7 fL [facility] Platelets (Bld) [#/Vol] 187 10*3/uL 140 - 440 10*3/uL [facility] RBC (Bld) [#/Vol] 3.66 10*6/uL Low 4.40 - 5.9 0 10*6/uL [facility] WBC (Bld) [#/Vol] 6.7 10*3/uL 3.6 - 10.7 10*3/uL [facility] CBC WITH AUTO DIFFERENTIALon 07-05-2024 Basophils (Bld) [#/Vol] 0.1 10*3/uL Normal 0.0-0.2 [facility] Comment on above: Performed By: #### L [id number] ####Steam Shovel Engineer: ARA WRIGHT ([id number])[facility] ([address] Basophils/100 WBC (Bld) 0.7 % Normal 0.0-2.0 [facility] Comment on above: Performed By: #### L [id number] ####Steam Shovel Engineer: ARA WRIGHT ([phone])[facility])[address] [place] [address] Eosinophils (Bld) [#/Vol] 0.1 10*3/uL Normal 0.0-0.5 [facility] Comment on above: Performed By: #### L [id number] ####Steam Shovel Engineer: ARA WRIGHT ([phone])[facility])[address] [place] [address] Eosinophils/100 WBC (Bld) 2.1 % Normal 0.0-6.0 [facility] Comment on above: Performed By: #### L [id number] ####Steam Shovel Engineer: ARA WRIGHT ([id number])[address] Erythrocyte distribution width (RBC) [Ratio] 12.8 % Normal 11.5-15.0 [facility] Comment on above: Performed By: #### L [id number] ####Steam Shovel Engineer: ARA WRIGHT ([id number])[address] Hematocrit (Bld) [Volume fraction] 31.6 % Low 40.0-52.0 [facility] Comment on above: Performed By: #### L [id number] ####Steam Shovel Engineer: ARA WRIGHT ([id number])[facility])[address] [place] [address] Hemoglobin (Bld) [Mass/Vol] 10.9 g/dL Low 13.0-18.0 [facility] [facility] Comment on above: Performed By: #### L [id number] ####Steam Shovel Engineer: ARA WRIGHT ([id number])[address] IMMATURE GRANS % 0.4 % Normal 0.0-2.0 [facility] Comment on above: Performed By: #### L [id number] ####Steam Shovel Engineer: ARA [id number])[facility])[address] [place] [address] IMMATURE GRANS ABSOLUTE 0.0 10*3/uL Normal <0.1 [facility] Comment on above: Performed By: #### L [id number] ####Steam Shovel Engineer: ARA WRIGHT ([phone])[facility])[address] [place] [address] Lymphocytes (Bld) [#/Vol] 1.6 10*3/uL Normal 1.0-4.3 [facility] Comment on above: Performed By: #### L [id number] ####Steam Shovel Engineer: ARA WRIGHT ([phone])[facility])[address] [place] [address] Lymphocytes/100 WBC (Bld) 24.0 % Normal 15.0-45.0 [facility] Comment on above: Performed By: #### L [id number] ####Steam Shovel Engineer: ARA WRIGHT ([id number])[facility])[address] [place] [address] MCH (RBC) [Entitic mass] 29.8 pg Normal 26.0-34.0 [facility] Comment on above: Performed By: #### L [id number] ####Steam Shovel Engineer: ARA WRIGHT ([id number])[facility])[address] [place] [address] MCHC 34.5 % Normal 30.5-36.0 [facility] Comment on above: Performed By: #### L [id number] ####Steam Shovel Engineer: ARA WRIGHT ([phone])[facility])[address] [place] [address] MCV (RBC) [Entitic vol] 86.3 fL Normal 77.0-99.0 [facility] Comment on above: Performed By: #### L [id number] ####Steam Shovel Engineer: ARA WRIGHT ([phone])[facility])[address] [place] [address] [place] Monocytes (Bld) [#/Vol] 0.6 10*3/uL Normal 0.0-0.9 [facility] Comment on above: Performed By: #### L [id number] ####Steam Shovel Engineer: ARA WRIGHT ([id number])[facility] ([facility])[address] [place] [address] Monocytes/100 WBC (Bld) 9.1 % Normal 5.0-13.0 [facility] Comment on above: Performed By: #### L [id number] ####Steam Shovel Engineer: ARA WRIGHT ([id number])[facility] ([facility])[address] [place] [address] NEUTROPHILS ABSOLUTE 4.3 10*3/uL Normal 1.8-7.5 [facility] Comment on above: Performed By: #### L [id number] ####Steam Shovel Engineer: ARA WRIGHT ([phone])[facility] ([facility])[address] [place] [address] Neutrophils/100 WBC (Bld) 63.7 % Normal 38.0-82.0 [facility] Comment on above: Performed By: #### L [id number] ####Steam Shovel Engineer: ARA WRIGHT ([id number])[facility] ([facility])[address] [place] [address] NRBC 0.0 /100 WBCs Normal 0.0-2.0 [facility] Comment on above: Performed By: #### L [id number] ####Steam Shovel Engineer: ARA WRIGHT ([id number])[facility] ([facility])[address] [place] [address] Platelet mean volume (Bld) [Entitic vol] 9.1 fL Normal 9.0-12.7 [facility] Comment on above: Performed By: #### L [id number] ####Steam Shovel Engineer: ARA WRIGHT ([id number])[facility] ([facility])[address] [place] [address] [place] Platelets (Bld) [#/Vol] 187 10*3/uL Normal 140-440 [facility] Comment on above: Performed By: #### L [id number] ####Steam Shovel Engineer: ARA WRIGHT ([phone])[facility] ([facility])[address] [place] [address] RBC (Bld) [#/Vol] 3.66 10*6/uL Low 4.40-5.90 [facility] Comment on above: Performed By: #### L [id number] ####Steam Shovel Engineer: ARA WRIGHT ([phone])[facility] ([facility])[address] [place] [address] WBC (Bld) [#/Vol] 6.7 10*3/uL Normal 3.6-10.7 [facility] Comment on above: Performed By: #### L [id number] ####Steam Shovel Engineer: ARA AILYNTim ([id number])[facility] ([facility])[address] [place] [address] CT ABDOMEN PELVIS W CONTRAST on 07-05-2024 CT ABDOMEN PELVIS W CONTRAST Normal [facility] CT Abdomen and Pelvis W cont rast Joaquin 07-05-2024 1. No acute process. Report Dictated on Electronically Signed By: Lloyd Onofre MD Electronically Signed Date/Time: 07/05/2024 1:55 PM [facility] Patient Name: WOODY NI : 1960 [facility]#: [id number] Exam Date/Time: 07/05/2024 13:10 Procedure: CT ABDOMEN [...] identified. Mild retrolisthesis of L2-3, L2-L5 laminectomies. [facility] Lloyd Onofre M D - 07/05/2024 [...] Electronically Signed Date/Time: 07/05/2024 1:55 PM EDT [facility] Radiology Study observation (narrative) [facility] CT Abdomen and Pelvis W cont rast IVOrdered By: Lloyd Onofre on 07-05-2024 [facility] Work Phone: Consulton 07-05-2024 Consult Normal [facility] Consult Normal [facility] Consult Normal [facility] Consult Normal [facility] Consult Normal [facility] FECAL FAT, QUALITATIVEon FECAL FAT - NEUTRAL Normal Normal Normal [facility] Comment on above: Performed By: #### L [id number] ####[facility] ([facility])[address] [place] [address] [place] FECAL FAT - SPLIT Normal Normal Normal [facility] Comment on above: Result Comment: INTE RPRETIVE INFORMATION: Fecal Fat QualitativeNeutral fats include the monoglycerides, diglycerides, andtriglycerides while split fats are the free fatty acidsthat are liberated from them. Impaired synthesis orsecretion of pancreatic enzymes or bile may cause anincrease in neutral fats while an increase in split fatssuggests impaired absorption of nutrients.Performed By: [facility] [place], [place] [address]Ngxoymultl Director: Ana Heredia MD, PhDCLIA Number: [id number] Performed By: #### L [id number] ####[facility] ([facility])[address] [place] [address] [place] GASTROINTESTINAL PCR PANELon 07-05-2024 GASTROINTESTINAL PCR PANEL Normal [facility] Comment on above: Performed By: #### L [id number], [id number] ####Steam Shovel Engineer: ARA WRIGHT ([id number])[address] Gastrointestinal pathogens p mac SHANE+probe (Stl)Ordered By: Jose Bell on 07-05-2024 Adenovirus F 40/41 Not detected Not Detected [facility] Astrovirus Not detected Not Detected [facility] Campylobacter Not detected Not Detected [facility] Cryptosporidium Not detected Not Detected [facility] Cyclospora cayetanensis Not detected Not Detected [facility] Entamoeba histolytica Not detected Not Detected [facility] Enterotoxigenic E coli (ETEC) Not detected Not Detected [facility] Giardia lamblia Not detected Not Detected [facility] Interpretation and review of laboratory results Normal [facility] Norovirus GI/GII Not detected Not Detected [facility] Plesiomonas shigelloides Not detected Not Detected [facility] Rotavirus A Not detected Not Detected [facility] Salmonella Not detected Not Detected [facility] Sapovirus Not detected Not Detected [facility] Shiga toxin-producing E coli (STEC) Not detected Not Detected [facility] Shigella/Enteroinvasiv e E coli (EIEC) Not detected Not Detected [facility] Vibrio cholerae Not detected Not Detected [facility] Vibrio species Not detected Not Detected [facility] Yersinia enterocolitica Not detected Not Detected [facility] A positive Norovirus result on the Film Array GI panel should be interpreted in the context of the patient's history and clinical picture. If results are not consistent, result should be confirmed with a Norovirus specific assay. Methodology: Multiplex PCR [facility] IDNon 07-05-2024 IDN Normal [facility] IDN Normal [facility] LACTIC ACID WITH REFLEXon Lactate [Moles/Vol] 0.7 mmol/L Normal 0.7-2.0 [facility] Comment on above: Performed By: #### L [id number] ####Steam Shovel Engineer: ARA WRIGHT ([id number])[facility] ([facility])[address] [place] [address] LIPASEon 07-05-2024 Lipase [Catalytic activity/Vol] 134 U/L Normal 23-300 [facility] Comment on above: Performed By: #### L [id number], [id number] ####Steam Shovel Engineer: ARA WRIGHT ([phone])[facility] ([facility])[address] [place] [address] Laboratory - Chemistry and C hemistry - challengeon 07-05-2024 Lipase [Catalytic activity/Vol] 134 U/L 23 - 300 U/L [facility] Lactate [Moles/Vol] 0.7 mmol/L 0.7 - 2. 0 mmol/L [facility] Lipase [Catalytic activity/V ol]on 07-05-2024 Interpretation and review of laboratory results Normal [facility] No Panel Informationon 07-05 Interpretation and review of laboratory results Normal [facility] Progress Noteon 07-05-2024 Progress Note Normal [facility] Progress Note Normal [facility] Progress Note Normal [facility] Progress Note Normal [facility] US ABDOMEN COMPLETEon 2023 US ABDOMEN COMPLETE Normal [facility] US Abdomenon 07-05-2024 1. Status post cholecystectomy. No biliary ductal dilatation. 2. Mild hepatocellular disease. 3. Pancreas is obscured by overlying bowel gas and not well visualized or evaluated. Report Dictated on Electronically Signed By: Juan Jose Abreu MD Electronically Signed Date/Time: 07/05/2024 8:51 AM EDT [facility] NI : 1960 [id number] Exam Date/Time: 07/05/2024 08:35 Procedure: US ABDOMEN [...] Gallbladder/biliary: Status post cholecystectomy. As per the magnetic resonance technologist, no sonographic Ortiz sign was present. [...] No significant ascites or other additional abnormality [facility] Lulu Abreu MD - 07/05/2024 Patient Name: WOODY NI : 1960 [facility]#: [id number] Exam Date/Time: 07/05/2024 08:35 Procedure: US ABDOMEN [...] Gallbladder/biliary: Status post cholecystectomy. As per the magnetic resonance technologist, no sonographic Ortiz sign was present. [...] Electronically Signed Date/Time: 07/05/2024 8:51 AM EDT [facility] Radiology Study observation (narrative) [facility] US AbdomenOrdered By: Lisnadro Abreu on 07-05-2024 Rachio Work Phone: AMMONIAon 07-04-2024 Ammonia (P) [Moles/Vol] 17 umol/L Normal 9-30 [facility] Comment on above: Performed By: #### L [id number] ####Steam Shovel Engineer: TRSESA SANTIZO ([id number])[facility]ITALOctavia POLKAILYN ([facility])[address] [place] [address] [place] BETA HYDROXYBUTYRATEon 07-04 BETA HYDROXYBUTYRATE 20.30 mg/dL High 0.20-2.81 [facility] Comment on above: Performed By: #### L [id number], LAB99, [id number], LAB17, [id number], LAB46 ####Steam Shovel Engineer: ARA WRIGHT ([phone])[facility]ITALA DAOKTA RITTMAN (SWRLAB)[address] [place] [address] [place] BLOOD GAS, VENOUS (SWR AND S HC)on 07-04-2024 BASE EXCESS (MMOL/L) IN VENOUS BLOOD -8.0 mmol/L Low -3.0-3.0 [facility] Comment on above: Performed By: #### L [id number] ####Steam Shovel Engineer: ARA WRIGHT ([id number])[facility]OS[facility]ITALOctavia LARADAKOTA RITTMAN ([facility])[address] [place] [address] [place] CARBON DIOXIDE (MM HG) IN VENOUS BLOOD 32 mm(Hg) Low 40-55 [facility] Comment on above: Performed By: #### L [id number] ####Steam Shovel Engineer: ARA WRIGHT ([id number])[facility]ITALOctavia [place]AD[place] RITTMAN ([facility])[address] [place] [address] [place] OXYGEN (MM HG) IN VENOUS BLOOD 62 mm(Hg) Normal [facility] Comment on above: Performed By: #### L [id number] ####Steam Shovel Engineer: ARA WRIGHT ([id number])[facility]ITALOctavia [place]ARAD[place] RITTMAN ([facility])[address] [place] [address] [place] OXYGEN SATURATION (%) IN VENOUS BLOOD 90.0 % High 60.0-80.0 [facility] Comment on above: Performed By: #### L [id number] ####Steam Shovel Engineer: ARA WRIGHT ([id number])[facility] DUNCAN RITTMAN ([facility])[address] [place] [address] BLOOD GAS, VENOUS (SWR AND S HC)Ordered By: Bhupinder Motta on 07-04-2024 CO2 [Moles/Vol] 18.0 mmol/L Low 24.0-28.0 [facility] Comment on above: Performed By: #### L [id number] ####Steam Shovel Engineer: ARA WRIGHT ([id number])[facility]ITALOctavia DAK[place] RITTMAN ([facility])[address] [place] [address] HCO3 (Bld) [Moles/Vol] 17.5 mmol/L Low 23.0-27.0 [facility] Comment on above: Performed By: #### L [id number] ####Steam Shovel Engineer: ARA WRIGHT ([id number])[facility] RITTMAN (SWRLAB)[address] [place] [address] pH (Bld) 7.343 [pH] Normal 7.310-7.410 [facility] Comment on above: Performed By: #### L [id number] ####Steam Shovel Engineer: ARA WRIGHT ([id number])[facility] ([facility])[address] [place] [address] Source Of Oxygen Room Air Normal [facility] Comment on above: Performed By: #### L [id number] ####Steam Shovel Engineer: ARA WRIGHT ([id number])[facility]ITALDAKOTA [facility] ([facility])[address] [place] [address] CBC W Auto Differential pane l (Bld)Ordered By: Diana Núñez on 07-04-2024 Basophils (Bld) [#/Vol] 0.1 10*3/uL 0.0 - 0.2 10*3/uL [facility] Basophils/100 WBC (Bld) 0.7 % 0.0 - 2.0 % [facility] Eosinophils (Bld) [#/Vol] 0.1 10*3/uL 0.0 - 0.5 10*3/uL [facility] Eosinophils/100 WBC (Bld) 1.5 % 0.0 - 6.0 % [facility] Erythrocyte distribution width (RBC) [Ratio] 12.8 % 11.5 - 15.0 % [facility] Hematocrit (Bld) [Volume fraction] 32.5 % Low 40.0 - 52.0 % [facility] Hemoglobin (Bld) [Mass/Vol] 11.7 g/dL Low 13.0 - 18.0 g/dL [facility] Immature granulocytes (Bld) [#/Vol] 0.0 10*3/uL NINF - 0.1 10*3/uL [facility] Immature granulocytes/100 WBC (Bld) 0.3 % 0.0 - 2.0 % [facility] Interpretation and review of laboratory results Abnormal [facility] Lymphocytes (Bld) [#/Vol] 2.5 10*3/uL 1.0 - 4.3 10*3/uL [facility] Lymphocytes/100 WBC (Bld) 26.3 % 15.0 - 45.0 % [facility] MCH (RBC) [Entitic mass] 30.5 pg 26.0 - 34.0 pg [facility] MCHC (RBC) [Mass/Vol] 36.0 % 30.5 - 36.0 % [facility] MCV (RBC) [Entitic vol] 84.6 fL 77.0 - 99.0 fL [facility] Monocytes (Bld) [#/Vol] 0.7 10*3/uL 0.0 - 0.9 10*3/uL [facility] Monocytes/100 WBC (Bld) 7.5 % 5.0 - 13.0 % [facility] Neutrophils (Bld) [#/Vol] 6.1 10*3/uL 1.8 - 7.5 10*3/uL [facility] Neutrophils/100 WBC (Bld) 63.7 % 38.0 - 82.0 % [facility] Nucleated RBC/100 WBC (Bld) [Ratio] 0.0 % [facility] Platelet mean volume (Bld) [Entitic vol] 8.9 fL Low 9.0 - 12.7 fL [facility] Comment on above: MPV is a calculated measurement using platelet volume ratio Platelets (Bld) [#/Vol] 227 10*3/uL 140 - 440 10*3/uL [facility] RBC (Bld) [#/Vol] 3.84 10*6/uL Low 4.40 - 5.9 0 10*6/uL [facility] WBC (Bld) [#/Vol] 9.6 10*3/uL 3.6 - 10.7 10*3/uL [facility] CBC WITH AUTO DIFFERENTIALon 07-04-2024 Basophils (Bld) [#/Vol] 0.1 10*3/uL Normal 0.0-0.2 [facility] Comment on above: Performed By: #### L [id number] ####Steam Shovel Engineer: ARA WRIGHT ([phone])[facility]ITALA DAK[place] RITTMAN (SWRL[facility])[address] [place] [address] [place] Basophils/100 WBC (Bld) 0.7 % Normal 0.0-2.0 [facility] Comment on above: Performed By: #### L [id number] ####Steam Shovel Engineer: ARA WRIGHT ([phone])[facility]ITALA [place] RITTMAN (SW[facility])[address] [place] [address] Eosinophils (Bld) [#/Vol] 0.1 10*3/uL Normal 0.0-0.5 [facility] Comment on above: Performed By: #### L [id number] ####Steam Shovel Engineer: ARA WRIGHT ([id number])[facility]ITALA [place] RITTMAN (SWRL[facility])[address] [place] [address] [place] Eosinophils/100 WBC (Bld) 1.5 % Normal 0.0-6.0 [facility] Comment on above: Performed By: #### L [id number] ####Steam Shovel Engineer: ARA WRIGHT ([id number])[facility]ITALA [place] RITTMAN (SWRL[facility])[address] [place] [address] Erythrocyte distribution width (RBC) [Ratio] 12.8 % Normal 11.5-15.0 [facility] Comment on above: Performed By: #### L [id number] ####Steam Shovel Engineer: ARA WRIGHT ([id number])[facility]ITALA [place] RITTMAN ([facility])[address] [place] [address] Hematocrit (Bld) [Volume fraction] 32.5 % Low 40.0-52.0 [facility] Comment on above: Performed By: #### L [id number] ####Steam Shovel Engineer: ARA WRIGHT ([id number])[facility]ITALOctavia DUNCAN RITTMAN ([facility])[address] [place] [address] Hemoglobin (Bld) [Mass/Vol] 11.7 g/dL Low 13.0-18.0 [facility] Comment on above: Performed By: #### L [id number] ####Steam Shovel Engineer: ARA WRIGHT ([id number])[facility]OS[facility]ITALOctavia DUNCAN RITTMAN ([facility])[address] [place] [address] IMMATURE GRANS % 0.3 % Normal 0.0-2.0 [facility] Comment on above: Performed By: #### L [id number] ####Steam Shovel Engineer: ARA WRIGHT ([id number])[facility]OS[facility]ITALOctavia DUNCAN RITTMAN ([facility])[address] [place] [address] IMMATURE GRANS ABSOLUTE 0.0 10*3/uL Normal <0.1 [facility] Comment on above: Performed By: #### L [id number] ####Steam Shovel Engineer: ARA WRIGHT ([phone])[facility]ITALOctavia DUNCAN RITTMAN (SWRL[facility])[address] [place] [address] Lymphocytes (Bld) [#/Vol] 2.5 10*3/uL Normal 1.0-4.3 [facility] Comment on above: Performed By: #### L [id number] ####Steam Shovel Engineer: ARA WRIGHT ([id number])[facility]ITALOctavia DUNCAN RITTMAN (SWRL[facility])[address] [place] [address] [place] Lymphocytes/100 WBC (Bld) 26.3 % Normal 15.0-45.0 [facility] Comment on above: Performed By: #### L [id number] ####Steam Shovel Engineer: ARA WRIGHT ([id number])[facility]ITALA [place] RITTMAN (SWRL[facility])[address] [place] [address] MCH (RBC) [Entitic mass] 30.5 pg Normal 26.0-34.0 [facility] Comment on above: Performed By: #### L [id number] ####Steam Shovel Engineer: ARA WRIGHT ([phone])[facility]OS[facility]ITALOctavia DUNCAN RITTMAN ([facility])[address] [place] [address] MCHC 36.0 % Normal 30.5-36.0 [facility] Comment on above: Performed By: #### L [id number] ####Steam Shovel Engineer: ARA WRIGHT ([id number])[facility]ITALOctavia DUNCAN RITTMAN ([facility])[address] [place] [address] MCV (RBC) [Entitic vol] 84.6 fL Normal 77.0-99.0 [facility] Comment on above: Performed By: #### L [id number] ####Steam Shovel Engineer: ARA WRIGHT ([id number])[facility]ITALOctavia DUNCAN RITTMAN ([facility]RL[facility])[address] [place] [address] Monocytes (Bld) [#/Vol] 0.7 10*3/uL Normal 0.0-0.9 [facility] Comment on above: Performed By: #### L [id number] ####Steam Shovel Engineer: ARA WRIGHT ([id number])[facility] HOSPITALOctavai DUNCAN RITTMAN (SWRLAB)[address] [place] [address] [place] Monocytes/100 WBC (Bld) 7.5 % Normal 5.0-13.0 [facility] Comment on above: Performed By: #### L [id number] ####Steam Shovel Engineer: ARA WRIGHT ([id number])[facility]OS[facility]ITALOctavia DUNCAN RITTMAN (SWRL[facility])[address] [place] [address] NEUTROPHILS ABSOLUTE 6.1 10*3/uL Normal 1.8-7.5 [facility] Comment on above: Performed By: #### L [id number] ####Steam Shovel Engineer: ARA WRIGHT ([id number])HANNA DUNCAN RITTMAN (SWRLAB)[address] [place] [address] [place] Neutrophils/100 WBC (Bld) 63.7 % Normal 38.0-82.0 [facility] Comment on above: Performed By: #### L [id number] ####Steam Shovel Engineer: ARA WRIGHT ([id number])[facility]OS[facility]ITALOctavia DUNCAN RITTMAN ([facility])[address] [place] [address] NRBC 0.0 /100 WBCs Normal 0.0-2.0 [facility] Comment on above: Performed By: #### L [id number] ####Steam Shovel Engineer: ARA WRIGHT ([id number])[facility] HOSPITALOctavia DUNCAN RITTMAN (SW[facility])[address] [place] [address] [place] Platelet mean volume (Bld) [Entitic vol] 8.9 fL Low 9.0-12.7 [facility] Comment on above: Result Comment: MPV is a calculated measurement using platelet volume ratio Performed By: #### L [id number] ####Steam Shovel Engineer: ARA WRIGHT ([id number])[facility]OS[facility]ITALOctavia DUNCAN RITTMAN ([facility])[address] [place] [address] [place] Platelets (Bld) [#/Vol] 227 10*3/uL Normal 140-440 [facility] Comment on above: Performed By: #### L [id number] ####Steam Shovel Engineer: ARA WRIGHT ([id number])[facility]OS[facility]ITALOctavia DUNCAN RITTMAN (SW[facility])[address] [place] [address] [place] RBC (Bld) [#/Vol] 3.84 10*6/uL Low 4.40-5.90 [facility] Comment on above: Performed By: #### L [id number] ####Steam Shovel Engineer: ARA WRIGHT ([id number])[facility]OS[facility]ITALOctavia DUNCAN RITTMAN ([facility])[address] [place] [address] [place] WBC (Bld) [#/Vol] 9.6 10*3/uL Normal 3.6-10.7 [facility] Comment on above: Performed By: #### L [id number] ####Steam Shovel Engineer: ARA WRIGHT ([id number])[facility] HOSPITALOctavia GUSTAFSONTMAN (SWRLAB)[address] [place] [address] COMPREHENSIVE METABOLIC PANE Peter 07-04-2024 Albumin [Mass/Vol] 4.1 g/dL Normal 3.5-5.0 [facility] Comment on above: Performed By: #### L [id number], LAB99, [id number], LAB17, [id number], LAB46 ####Steam Shovel Engineer: ARA WRIGHT ([id number])[facility]OSPITALOctavia GUSTAFSONTMAN (SWRLAB)[address] [place] [address] ALP [Catalytic activity/Vol] 68 U/L Normal 38-126 [facility] Comment on above: Performed By: #### L [id number], LAB99, [id number], LAB17, [id number], LAB46 ####Steam Shovel Engineer: ARA WRIGHT ([id number])[facility] HOSPITALOctavia DUNCAN RITTMAN (SWRLAB)[address] [place] [address] ALT [Catalytic activity/Vol] 17 U/L Normal 0-49 [facility] Comment on above: Performed By: #### L [id number], LAB99, [id number], LAB17, [id number], LAB46 ####Steam Shovel Engineer: ARA WRIGHT ([phone])[facility] HOSPITALOctavia GUSTAFSONTMAN (SWRLAB)[address] [place] [address] Anion gap [Moles/Vol] 20 mmol/L High 3-13 [facility] Comment on above: Performed By: #### L [id number], LAB99, [id number], LAB17, [id number], LAB46 ####Steam Shovel Engineer: ARA WRIGHT ([id number])[facility] HOSPITALOctavia DUNCAN RITTMAN (SWRLAB)[address] [place] [address] AST [Catalytic activity/Vol] 38 U/L Normal 15-46 [facility] Comment on above: Performed By: #### L [id number], LAB99, QHE936, LAB17, KYK472, LAB46 ####Steam Shovel Engineer: ARA WRIGHT ([id number])[facility] HOSPITALOctavia DUNCAN RITTMAN (SWRLAB)[address] Bilirubin [Mass/Vol] 0.8 mg/dL Normal 0.2-1.3 [facility] Comment on above: Performed By: #### L [id number], LAB99, ZOW485, LAB17, AVJ850, LAB46 ####Steam Shovel Engineer: ARA WRIGHT ([id number])[facility] HOSPITALOctavia DUNCAN RITTMAN (SWRLAB)[address] [place] [address] Calcium [Mass/Vol] 8.8 mg/dL Normal 8.4-10.4 [facility] Comment on above: Performed By: #### L [id number], LAB99, JEQ798, LAB17, VKL946, LAB46 ####Steam Shovel Engineer: ARA WRIGHT ([id number])[facility] HOSPITALOctavia DUNCAN RITTMAN (SWRLAB)[address] [place] [address] [place] Chloride [Moles/Vol] 90 mmol/L Low 98-107 [facility] Comment on above: Performed By: #### L [id number], LAB99, LEG998, LAB17, JPQ240, LAB46 ####Steam Shovel Engineer: ARA WRIGHT ([phone])[facility] HOSPITALOctavia DUNCAN RITTMAN (SWRLAB)[address] [place] [address] [place] CO2 [Moles/Vol] 14 mmol/L Low 22-30 [facility] Comment on above: Performed By: #### L [id number], LAB99, RCH861, LAB17, PAP023, LAB46 ####Steam Shovel Engineer: ARA WRIGHT ([id number])[facility] HOSPITALOctavia DUNCAN RITTMAN (SWRLAB)[address] [place] [address] [place] Creatinine [Mass/Vol] 1.33 mg/dL High 0.66-1.25 [facility] Comment on above: Performed By: #### L [id number], LAB99, PTK646, LAB17, OUS863, LAB46 ####Steam Shovel Engineer: ARA WRIGHT ([id number])[facility] HOSPITALOctavia GUSTAFSONTMAN (SWRLAB)[address] [place] [address] GLOMERULAR FILTRATION RATE ML/MIN/1.73 SQ M.PREDICTED 59.7 mL/min/1.73m*2 Low >60.0 [facility] Comment on above: Result Comment: Calc ulation based on the Chronic Kidney Disease Epidemiology Collaboration (CKD-EPI) equation refit without adjustment for race Performed By: #### L [id number], LAB99, XZG112, LAB17, GKL919, LAB46 ####Steam Shovel Engineer: ARA WRIGHT ([id number])[facility] HOSPITALOctavia GUSTAFSONTMAN (SWRLAB)[address] [place] [address] [place] Glucose [Mass/Vol] 86 mg/dL Normal 70-100 [facility] Comment on above: Performed By: #### L EO0184, LAB99, JJW142, LAB17, NJA709, LAB46 ####Steam Shovel Engineer: ARA WRIGHT ([id number])[facility] HOSPITALOctavia GUSTAFSONTMAN (SWRLAB)[address] [place] [address] [place] Potassium [Moles/Vol] 2.7 mmol/L Low 3.5-5.1 [facility] Comment on above: Performed By: #### L EU8768, LAB99, QON818, LAB17, YBN321, LAB46 ####Steam Shovel Engineer: ARA WRIGHT ([id number])[facility] HOSPITALOctavia GUSTAFSONTMAN (SWRLAB)[address] [place] [address] [place] Protein [Mass/Vol] 6.6 g/dL Normal 6.3-8.2 [facility] Comment on above: Performed By: #### L MH2006, LAB99, BTM238, LAB17, BTQ315, LAB46 ####Steam Shovel Engineer: ARA WRIGHT ([id number])[facility] HOSPITALOctavia GUSTAFSONTMAN (SWRLAB)[address] [place] [address] [place] Sodium [Moles/Vol] 124 mmol/L Low 135-145 [facility] Comment on above: Performed By: #### L [id number], LAB99, MMH403, LAB17, CLV678, LAB46 ####Steam Shovel Engineer: ARA WRIGHT ([id number])[facility]TM[facility] (SWRLAB)[address] [place] [address] Urea nitrogen [Mass/Vol] 18 mg/dL Normal 9-20 [facility] Comment on above: Performed By: #### L [id number], LAB99, VCO852, LAB17, AGQ100, LAB46 ####Steam Shovel Engineer: ARA WRIGHT ([id number])[facility]AN (SWRLAB)[address] [place] [address] CT HEAD WO IV CONTRASTon CT HEAD WO IV CONTRAST Normal [facility] CT Head WO contraston 2023 No acute intracrania l abnormality. 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 Report Dictated on Electronically Signed By: Barbara Henriquez MD Electronically Signed Date/Time: 07/04/2024 6:28 PM [facility] [employer] Patient Name: WOODY NI : 1960 [facility]#: [id number] Exam Date/Time: 07/04/2024 18:06 Procedure: CT HEAD [...] Orbits: Normal Calvarium and skull base: Normal [facility] RADI[facility]Y [facility] Barbara Henriquez M D - 07/04/2024 [facility] NI : 1960 [id number] Exam Date/Time: 07/04/2024 18:06 Procedure: CT HEAD [...] Electronically Signed Date/Time: 07/04/2024 6:28 PM EDT [facility] Radiology Study observation (narrative) [facility] CT Head WO contrastOrdered B y: Barbara Henriquez on 07-04-2024 [facility] Work Phone: Comprehensive metabolic 1998 panelon 07-04-2024 Albumin [Mass/Vol] 4.1 g/dL 3.5 - 5.0 g/dL [facility] ALP [Catalytic activity/Vol] 68 U/L 38 - 126 U/L [facility] ALT [Catalytic activity/Vol] 17 U/L 0 - 49 U/L [facility] Anion gap [Moles/Vol] 20 mmol/L High 3 - 13 mmol/L [facility] AST [Catalytic activity/Vol] 38 U/L 15 - 46 U/L [facility] Bilirubin [Mass/Vol] 0.8 mg/dL 0.2 - 1 .3 mg/dL [facility] Calcium [Mass/Vol] 8.8 mg/dL 8.4 - 10. 4 mg/dL [facility] Chloride [Moles/Vol] 90 mmol/L Low 98 - 10 7 mmol/L [facility] CO2 [Moles/Vol] 14 mmol/L Low 22 - 30 mmol/L [facility] Creatinine [Mass/Vol] 1.33 mg/dL High 0.66 - 1.25 mg/dL [facility] GFR/1.73 sq M.predicted (S/P/Bld) [Vol rate/Area] 59.7 mL/min Low - PINF [facility] Comment on above: Calculation based on the Chronic Kidney Disease Epidemiology Collaboration (CKD-EPI) equation refit without adjustment for race Glucose [Mass/Vol] 86 mg/dL 70 - 100 mg/dL [facility] Potassium [Moles/Vol] 2.7 mmol/L Low 3.5 - 5.1 mmol/L [facility] Protein [Mass/Vol] 6.6 g/dL 6.3 - 8.2 g/dL [facility] Sodium [Moles/Vol] 124 mmol/L Low 135 - 145 mmol/L [facility] Urea nitrogen [Mass/Vol] 18 mg/dL 9 - 20 mg/dL [facility] ECG 12-LEADon 07-04-2024 ECG 12-LEAD IMPRESSION: Sinus rhythm RBBB and LAFB Electronically Signed On 07-04-2024 17:44:57 EDT by Ashley Bell [facility] ED Nursing Noteon 07-04-2024 ED Nursing Note Report to Diana BRODERICK [address] [place] [address]. Pt signed transfer consent. Emilee Gonzalez RN 07/04/24 6450 [facility] ED Nursing Note Attempted to call re port to 3W. On hold x 6 min. Will try again Emilee Gonzalez RN 07/04/24 [id number] [facility] ED Nursing Note [facility] to [facility] via [facility]. Pt a&ox4. VSS at transfer Normal [facility] ED Nursing Note Normal [facility] ED Provider Noteon ED Provider Note Normal [facility] ETHANOLon 07-04-2024 ETHANOL IN SER/PLAS 0.032 g/dL High 0.000-0.010 [facility] Comment on above: Result Comment: CLAIRE Buitrago COMMENTS:NOTE: This result is for medical treatment only. Analysis performed using non-forensic procedures. Performed By: #### L [id number], LAB99, KVS326, LAB17, SGJ857, LAB46 ####Steam Shovel Engineer: ARA WRIGHT ([id number])[facility]OSPITALOctavia DUNCAN RITTMAN (SWRLAB)[address] [place] [address] Ethanol (Bld) [Mass/Vol]on 0 07-04-2024 Ethanol [Mass/Vol] 0.032 g/dL High 0.000 - 0.010 g/dL [facility] LACTIC ACID WITH REFLEXon Lactate [Moles/Vol] 0.6 mmol/L Low 0.7-2.0 [facility] Comment on above: Performed By: #### L [id number] ####Steam Shovel Engineer: ARA WRIGHT ([id number])[facility]OSPITALOctavia DUNCAN RITTMAN (SWRLAB)[address] [place] [address] Lactate [Moles/Vol] 2.6 mmol/L High 0.7-2.0 [facility] Comment on above: Performed By: #### L [id number] ####Steam Shovel Engineer: ARA WRIGHT ([id number])[facility]OS[facility]ITALOctavia DUNCAN RITTMAN (SWRLAB)[address] [place] [address] LIPASEon 07-04-2024 Lipase [Catalytic activity/Vol] 133 U/L Normal 23-300 [facility] Comment on above: Performed By: #### L [id number], LAB99, LMX864, LAB17, DYJ928, LAB46 ####Steam Shovel Engineer: ARA WRIGHT ([id number])[facility] HOSPITALOctavia DUNCAN RITTMAN (SWRLAB)[address] [place] [address] Laboratory - Chemistry and C hemistry - challengeon 07-04-2024 Lactate [Moles/Vol] 0.6 mmol/L Low 0.7 - 2. 0 mmol/L [facility] Ammonia (P) [Moles/Vol] 17 umol/L 9 - 30 umol/L [facility] Magnesium [Mass/Vol] 1.5 mg/dL Low 1.6 - 2 .3 mg/dL [facility] Troponin I.cardiac [Mass/Vol] 0.026 ng/mL NINF - 0.034 ng/mL [facility] Beta hydroxybutyrate [Mass/Vol] 20.30 mg/dL High 0.20 - 2.81 mg/dL [facility] Lactate [Moles/Vol] 2.6 mmol/L High 0.7 - 2. 0 mmol/L [facility] Lipase [Catalytic activity/Vol] 133 U/L 23 - 300 U/L [facility] Laboratory - Chemistry and C hemistry - challengeOrdered By: Bhupinder Motta on 07-04-2024 Oxygen (Bld) [Partial pressure] 62 mm[Hg] mm(Hg) [facility] Laboratory - Coagulationon 0 07-04-2024 PT Coag (Bld) [Time] 12.4 s High 9.0 - 12.0 s [facility] Laboratory - Microbiology an d Antimicrobial susceptibilityon 07-04-2024 FLUAV RNA SHANE+probe Ql (Resp) Not detected Not Detected [facility] FLUBV RNA SHANE+probe Ql (Resp) Not detected Not Detected [facility] RSV RNA SHANE+probe Ql (Resp) Not detected Not Detected [facility] SARS-CoV-2 (COVID-19) RNA SHANE+probe Ql (Resp) Not detected Not Detected [facility] SARS-CoV-2 (COVID-19) RNA SHANE+probe Ql (Unsp spec) Methodology: real-time, RT-PCR The SARS-CoV-2, Flu A/B, and RSV Combo assay is intended for in vitro diagnostic use under the FDA Emergency Use Authorization (EUA). This test has not been FDA cleared or approved. In compliance with this authorization, please visit www.fda.gov/media/296885/ download or www.fda.gov/media/720417/ download to access the applicable information sheets. [facility] Lipase [Catalytic activity/V ol]on 07-04-2024 Interpretation and review of laboratory results Normal [facility] MAGNESIUMon 07-04-2024 Magnesium [Mass/Vol] 1.5 mg/dL Low 1.6-2.3 [facility] Comment on above: Performed By: #### L [id number], LAB99, WRV425, LAB17, CEX232, LAB46 ####Steam Shovel Engineer: ARA WRIGHT ([id number])[facility] ([address] Magnesium [Mass/Vol]on 07-04 Interpretation and review of laboratory results Abnormal [facility] No Panel Informationon 07-04 Interpretation and review of laboratory results Abnormal [facility] Interpretation and review of laboratory results Normal [facility] Interpretation and review of laboratory results Abnormal [facility] Interpretation and review of laboratory results Abnormal [facility] Interpretation and review of laboratory results Abnormal [facility] Heart Rate 96 bpm [facility] P [place] 58 degrees [facility] W[place] Interval 142 ms [facility] QRS [place] -58 degrees [facility] QRSD Interval 154 ms [facility] QT Interval 450 ms [facility] QTC Interval 570 ms [facility] T Wave [place] 10 degrees [facility] Sinus rhythm RBBB and LAFB Electronically Signed On 07-04-2024 17:44:57 EDT by Ashley Bell Ashley Hilliard MD - 07/04/2024 IMPRESSION: Sinus rhythm RBBB and LAFB Electronically Signed On 07-04-2024 17:44:57 EDT by Ashley Bell [facility] No Panel InformationOrdered By: Bhupinder Motta on 07-04-2024 BASE EXCESS -8.0 mmol/L Low -3.0 - 3.0 mmol/L [facility] pCO2 32 Low [facility] PROTHROMBIN TIMEon INR Coag (PPP) [Relative time] 1.1 {INR} Normal 0.9-1.1 [facility] Comment on above: Result Comment: Fantasma [...] Myocardial Infarction Performed By: #### L [id number] ####Steam Shovel Engineer: ARA WRIGHT ([id number])[facility] HOSPITALDAKOTA ColovoreTMAN (SWRLAB)[address] [place] [address] PT Coag (PPP) [Time] 12.4 s High 9.0-12.0 [facility] Comment on above: Performed By: #### L AB320 ####Steam Shovel Engineer: ARA WRIGHT ([id number])[facility] ColovoreTMAN (SWRLAB)[address] [place] [address] [place] PT Coag (Bld) [Time]on 07-04 INR Coag (PPP) [Relative time] 1.1 {INR} 0.9 - 1.1 [facility] Comment on above: Recommended Anticoag ulant [...] (COVID-19) RNA SHANE+probe Ql (Unsp spec) Normal [facility] Comment on above: Performed By: #### L [id number] ####Steam Shovel Engineer: ARA WRIGHT ([id number])[facility] DAKOTA CEDENO (SWRLAB)[address] [place] [address] SARS-CoV-2, Flu A/B, and RSV Comboon 07-04-2024 Interpretation and review of laboratory results Normal [facility] TROPONIN Ion 09-16-2024 Troponin I.cardiac [Mass/Vol] 0.026 ng/mL Normal <0.034 [facility] Comment on above: Result Comment: CLAIRE Buitrago COMMENTS:Patients with high levels of Biotin oral intake (ie >5 mg/day) may have falsely decreased Troponin levels. Performed By: #### L [id number], LAB99, ZUK450, LAB17, RWB838, LAB46 ####Steam Shovel Engineer: ARA WRIGHT ([id number])[facility] HOSPITALMARILYN (SWRLAB)[address] [place] [address] Troponin I.cardiac [Mass/Vol ]on 07-04-2024 Interpretation and review of laboratory results Normal [facility] Patients with high l evels of Biotin oral intake (ie >5 mg/day) may have falsely decreased Troponin levels. [facility] Vital signsOrdered By: Bhupinder Motta on 07-04-2024 Oxygen saturation in Blood 90.0 % High 60.0 - 80.0 % [facility] XR Chest Single viewon 07-04 No acute cardiopulmonary disease. Report Dictated on Electronically Signed By: Marjan Ruth MD Electronically Signed Date/Time: 07/04/2024 6:00 PM EDT [facility] [employer] [facility] NI : 1960 [id number] Exam Date/Time: 07/04/2024 17:52 Procedure: XR CHEST [...] spine and shoulders. No acute osseous findings. [facility] Marjan Ruth MD - 07/04/2024 Patient Name: [...] Signed Date/Time: 07/04/2024 6:00 PM EDT [facility] Radiology Study observation (narrative) Rachio XR Chest Single viewOrdered By: Marjan Ruth on 07-04-2024 [facility] Work Phone: Basic Metabolic Profile (BMP )on 06-06-2024 BUN/CRE 11.8 RATIO Normal 10-[address] [facility] Comment on above: Order Comment: 306.1 Performed By: #### L 500.2500, L100.0100, L501.5200 #### [facility] [address] [place], [address] CA,Total 8.9 mg/dL Normal 8.5-10.[address] [facility] Comment on above: Order Comment: 306.1 Performed By: #### L 500.2500, L100.0100, L501.5200 #### [facility] [address] [place], [address] Chloride [Moles/Vol] 99 mmol/L Normal 98-107 [facility] Comment on above: Order Comment: 306.1 Performed By: #### L 500.2500, L100.0100, L501.5200 #### [facility] [address] [place], [address] CO2 [Moles/Vol] 27.0 mmol/L Normal 21.0-32.[address] [facility] Comment on above: Order Comment: 306.1 Performed By: #### L 500.2500, L100.0100, L501.5200 #### [facility] [address] [place], [address] Creatinine [Mass/Vol] 1.02 mg/dL Normal 0.70-1.30 [facility] Comment on above: Order Comment: 306.1 Result Comment: The validity of the calculated GFR GFRAA in patients over 70 years has not been determined. Clinical correlation is essential. Performed By: #### L 500.2500, L100.0100, L501.5200 #### [facility] [address] [place], [address] EST GFR - AA 95 mL/min Normal >[address] [facility] Comment on above: Order Comment: 306.1 Result Comment: Afri can [place] GFR Calc Performed By: #### L 500.2500, L100.0100, L501.5200 #### [facility] [address] [place], [address] GAP 6 Normal 5-[address] [facility] Comment on above: Order Comment: 306.1 Performed By: #### L 500.2500, L100.0100, L501.5200 #### [facility] [address] [place], [address] GFR/1.73 sq M.predicted among non-blacks MDRD (S/P/Bld) [Vol rate/Area] 78 mL/min/{1.73_m2} Normal >[address] [facility] Comment on above: Order Comment: 306.1 Result Comment: Non- GFR Calc Performed By: #### L 500.2500, L100.0100, L501.5200 #### [facility] [address] [place], [address] Glucose [Mass/Vol] 93 mg/dL Normal 74-106 [facility] Comment on above: Order Comment: 306.1 Performed By: #### L 500.2500, L100.0100, L501.5200 #### [facility] [address] [place], [address] Potassium [Moles/Vol] 3.9 mmol/L Normal 3.5-5.1 [facility] Comment on above: Order Comment: 306.1 Performed By: #### L 500.2500, L100.0100, L501.5200 #### [facility] [address] [place], [address] Sodium [Moles/Vol] 132 mmol/L Low 136-145 [facility] Comment on above: Order Comment: 306.1 Performed By: #### L 500.2500, L100.0100, L501.5200 #### [facility] [address] [place], [address] Urea nitrogen [Mass/Vol] 12 mg/dL Normal 7-[address] [facility] Comment on above: Order Comment: 306.1 Performed By: #### L 500.2500, L100.0100, L501.5200 #### [facility] [address] [place], [address] CBC W/Diff, Automatedon 08- Absolute Lymph 1.55 X10 3/uL Normal 0.83-4.[address] [facility] Comment on above: Order Comment: 306.1 Performed By: #### L 500.2500, L100.0100, L501.5200 #### [facility] [address] [place], [address] Absolute Neut 2.6 X10 3/uL Normal 2.0-7.[address] [facility] Comment on above: Order Comment: 306.1 Performed By: #### L 500.2500, L100.0100, L501.5200 #### [facility] [address] [place], [address] Basophils/100 WBC (Bld) 1.5 % High 0-[address] [facility] Comment on above: Order Comment: 306.1 Performed By: #### L 500.2500, L100.0100, L501.5200 #### [facility] [address] [place], [address] Eosinophils/100 WBC (Bld) 4.2 % Normal 0-[address] [facility] Comment on above: Order Comment: 306.1 Performed By: #### L 500.2500, L100.0100, L501.5200 #### [facility] [address] [place], [address] Erythrocyte distribution width (RBC) [Ratio] 15.0 % High 11.6-14.[address] [facility] Comment on above: Order Comment: 306.1 Performed By: #### L 500.2500, L100.0100, L501.5200 #### [facility] [address] [place], [address] Hematocrit (Bld) [Volume fraction] 31.4 % Low 40-[address] [facility] Comment on above: Order Comment: 306.1 Performed By: #### L 500.2500, L100.0100, L501.5200 #### [facility] [address] [place], [address] Hemoglobin (Bld) [Mass/Vol] 10.2 g/dL Low 13.0-16.[address] [facility] Comment on above: Order Comment: 306.1 Performed By: #### L 500.2500, L100.0100, L501.5200 #### [facility] [address] [place], [address] IG% 0.600 Normal 0.0-0.[address] [facility] Comment on above: Order Comment: 306.1 Result Comment: IG% - Immature Granulocytes (promyelocytes, myelocytes and metamyelocytes) > 1% indicates that a LEFT SHIFT is Present. Performed By: #### L 500.2500, L100.0100, L501.5200 #### [facility] [address] [place], [address] Lymphocytes/100 WBC (Bld) 32.2 % Normal 19-[address] [facility] Comment on above: Order Comment: 306.1 Performed By: #### L 500.2500, L100.0100, L501.5200 #### [facility] [address] [place], [address] MCH (RBC) [Entitic mass] 31.2 pg Normal 27.0-32.[address] [facility] Comment on above: Order Comment: 306.1 Performed By: #### L 500.2500, L100.0100, L501.5200 #### [facility] [address] [place], [address] MCHC (RBC) [Mass/Vol] 32.5 g/dL Normal 32-36 [facility] Comment on above: Order Comment: 306.1 Performed By: #### L 500.2500, L100.0100, L501.5200 #### [facility] [address] [place], [address] MCV (RBC) [Entitic vol] 96.0 fL High 80-[address] [facility] Comment on above: Order Comment: 306.1 Performed By: #### L 500.2500, L100.0100, L501.5200 #### [facility] [address] [place], [address] Monocytes/100 WBC (Bld) 7.9 % Normal 0-[address] [facility] Comment on above: Order Comment: 306.1 Performed By: #### L 500.2500, L100.0100, L501.5200 #### [facility] [address] [place], [address] Neutrophils/100 WBC (Bld) 53.6 % Normal 47-[address] [facility] Comment on above: Order Comment: 306.1 Performed By: #### L 500.2500, L100.0100, L501.5200 #### [facility] [address] [place], [address] Nucleated RBC (Bld) [#/Vol] 0 10*3/uL Normal 0-[address] [facility] Comment on above: Order Comment: 306.1 Performed By: #### L 500.2500, L100.0100, L501.5200 #### [facility] [address] [place], [address] Platelet mean volume (Bld) [Entitic vol] 9.7 fL Normal 6.2-12.[address] [facility] Comment on above: Order Comment: 306.1 Performed By: #### L 500.2500, L100.0100, L501.5200 #### [facility] [address] [place], [address] Platelets (Bld) [#/Vol] 242 10*3/uL Normal 150-[address] [facility] Comment on above: Order Comment: 306.1 Performed By: #### L 500.2500, L100.0100, L501.5200 #### [facility] [address] [place], [address] RBC (Bld) [#/Vol] 3.27 10*6/uL Low 4.6-6.2 [facility] Comment on above: Order Comment: 306.1 Performed By: #### L 500.2500, L100.0100, L501.5200 #### [facility] [address] [place], [address] RDW SD 52.6 fl High 35.1-43.[address] [facility] Comment on above: Order Comment: 306.1 Performed By: #### L 500.2500, L100.0100, L501.5200 #### [facility] [address] [place], [address] WBC (Bld) [#/Vol] 4.8 10*3/uL Normal 4.4-11.0 [facility] Comment on above: Order Comment: 306.1 Performed By: #### L 500.2500, L100.0100, L501.5200 #### [facility] [address] [place], [address] Magnesiumon 06-06-2024 Magnesium [Mass/Vol] 1.5 mg/dL Low 1.6-2.6 [facility] Comment on above: Order Comment: 306.1 Performed By: #### L 500.2500, L100.0100, L501.5200 #### [facility] [address] [place], [address] Basic Metabolic Profile (BMP )on 05-30-2024 BUN/CRE 12.1 RATIO Normal 10-[address] [facility] Comment on above: Performed By: #### L 501.5300, L501.5200 #### [facility] [address] [place], [address] CA,Total 8.4 mg/dL Low 8.5-10.[address] [facility] Comment on above: Performed By: #### L 501.5300, L501.5200 #### [facility] [address] [place], [address] Chloride [Moles/Vol] 98 mmol/L Normal 98-107 [facility] Comment on above: Performed By: #### L 501.5300, L501.5200 #### [facility] [address] [place], [address] CO2 [Moles/Vol] 24.0 mmol/L Normal 21.0-32.[address] [facility] Comment on above: Performed By: #### L 501.5300, L501.5200 #### [facility] [address] [place], [address] Creatinine [Mass/Vol] 1.07 mg/dL Normal 0.70-1.30 [facility] Comment on above: Result Comment: The validity of the calculated GFR GFRAA in patients over 70 years has not been determined. Clinical correlation is essential. Performed By: #### L 501.5300, L501.5200 #### [facility] [address] [place], [address] EST GFR - AA 89 mL/min Normal >[address] [facility] Comment on above: Result Comment: Afri can [place]ian GFR Calc Performed By: #### L 501.5300, L501.5200 #### [facility] [address] [place], [address] GAP 8 Normal 5-[address] [facility] Comment on above: Performed By: #### L 501.5300, L501.5200 #### [facility] [address] [place], [address] GFR/1.73 sq M.predicted among non-blacks MDRD (S/P/Bld) [Vol rate/Area] 74 mL/min/{1.73_m2} Normal >[address] [facility] Comment on above: Result Comment: Non- GFR Calc Performed By: #### L 501.5300, L501.5200 #### [facility] [address] [place], [address] Glucose [Mass/Vol] 119 mg/dL High 74-106 [facility] Comment on above: Result Comment: Fast ing Glucose result from 100 to 125 mg/dL suggests IMPAIRED HOMEOSTASIS per A.D.A. criteria. Performed By: #### L 501.5300, L501.5200 #### [facility] [address] [place], [address] Potassium [Moles/Vol] 3.9 mmol/L Normal 3.5-5.1 [facility] Comment on above: Performed By: #### L 501.5300, L501.5200 #### [facility] [address] [place], [address] Sodium [Moles/Vol] 130 mmol/L Low 136-145 [facility] Comment on above: Performed By: #### L 501.5300, L501.5200 #### [facility] [address] [place], [address] Urea nitrogen [Mass/Vol] 13 mg/dL Normal 7-[address] [facility] Comment on above: Performed By: #### L 501.5300, L501.5200 #### [facility] [address] [place], [address] CBC W/Diff, Automatedon 05-19 Absolute Lymph 1.36 X10 3/uL Normal 0.83-4.[address] [facility] Comment on above: Performed By: #### L 501.5300, L501.5200 #### [facility] [address] [place], [address] Absolute Neut 1.6 X10 3/uL Low 2.0-7.[address] [facility] Comment on above: Performed By: #### L 501.5300, L501.5200 #### [facility] [address] [place], [address] Basophils/100 WBC (Bld) 0.8 % Normal 0-[address] [facility] Comment on above: Performed By: #### L 501.5300, L501.5200 #### [facility] [address] [place], [address] Eosinophils/100 WBC (Bld) 1.9 % Normal 0-[address] [facility] Comment on above: Performed By: #### L 501.5300, L501.5200 #### [facility] [address] [place], [address] Erythrocyte distribution width (RBC) [Ratio] 15.3 % High 11.6-14.[address] [facility] Comment on above: Performed By: #### L 501.5300, L501.5200 #### [facility] [address] [place], [address] Hematocrit (Bld) [Volume fraction] 28.3 % Low 40-[address] [facility] Comment on above: Performed By: #### L 501.5300, L501.5200 #### [facility] [address] [place], [address] Hemoglobin (Bld) [Mass/Vol] 9.2 g/dL Low 13.0-16.[address] [facility] Comment on above: Performed By: #### L 501.5300, L501.5200 #### [facility] [address] [place], [address] IG% 0.600 Normal 0.0-0.[address] [facility] Comment on above: Result Comment: IG% - Immature Granulocytes (promyelocytes, myelocytes and metamyelocytes) > 1% indicates that a LEFT SHIFT is Present. Performed By: #### L 501.5300, L501.5200 #### [facility] [address] [place], [address] Lymphocytes/100 WBC (Bld) 37.8 % Normal 19-[address] [facility] Comment on above: Performed By: #### L 501.5300, L501.5200 #### [facility] [address] [place], [address] MCH (RBC) [Entitic mass] 31.0 pg Normal 27.0-32.[address] [facility] Comment on above: Performed By: #### L 501.5300, L501.5200 #### [facility] [address] [place], [address] MCHC (RBC) [Mass/Vol] 32.5 g/dL Normal 32-36 [facility] Comment on above: Performed By: #### L 501.5300, L501.5200 #### [facility] [address] [place], [address] MCV (RBC) [Entitic vol] 95.3 fL High 80-[address] [facility] Comment on above: Performed By: #### L 501.5300, L501.5200 #### [facility] [address] [place], [address] Monocytes/100 WBC (Bld) 14.4 % High 0-[address] [facility] Comment on above: Performed By: #### L 501.5300, L501.5200 #### [facility] [address] [place], [address] Neutrophils/100 WBC (Bld) 44.5 % Low 47-[address] [facility] Comment on above: Performed By: #### L 501.5300, L501.5200 #### [facility] [address] [place], [address] Nucleated RBC (Bld) [#/Vol] 0 10*3/uL Normal 0-[address] [facility] Comment on above: Performed By: #### L 501.5300, L501.5200 #### [facility] [address] [place], [address] Platelet mean volume (Bld) [Entitic vol] 10.0 fL Normal 6.2-12.[address] [facility] Comment on above: Performed By: #### L 501.5300, L501.5200 #### [facility] [address] [place], [address] Platelets (Bld) [#/Vol] 125 10*3/uL Low 150-[address] [facility] Comment on above: Performed By: #### L 501.5300, L501.5200 #### [facility] [address] [place], [address] RBC (Bld) [#/Vol] 2.97 10*6/uL Low 4.6-6.2 [facility] Comment on above: Performed By: #### L 501.5300, L501.5200 #### [facility] [address] [place], [address] RDW SD 53.9 fl High 35.1-43.[address] [facility] Comment on above: Performed By: #### L 501.5300, L501.5200 #### [facility] [address] [place], [address] WBC (Bld) [#/Vol] 3.6 10*3/uL Low 4.4-11.0 [facility] Comment on above: Performed By: #### L 501.5300, L501.5200 #### [facility] [address] [place], [address] Magnesiumon 05-30-2024 Magnesium [Mass/Vol] 1.2 mg/dL Low 1.6-2.6 [facility] Comment on above: Performed By: #### L 501.5300, L501.5200 #### [facility] [address] [place], [address] Basic Metabolic Profile (BMP )on 05-27-2024 BUN/CRE 7.5 RATIO Low 10-[address] [facility] Comment on above: Order Comment: 306-1 Performed By: #### L 505.5000, L501.9100, L500.4050, L100.0100, L300.3900 #### [facility] [address] [place], [address] CA,Total 8.5 mg/dL Normal 8.5-10.[address] [facility] Comment on above: Order Comment: 306-1 Performed By: #### L 505.5000, L501.9100, L500.4050, L100.0100, L300.3900 #### [facility] [address] [place], [address] Chloride [Moles/Vol] 95 mmol/L Low 98-107 [facility] Comment on above: Order Comment: 306-1 Performed By: #### L 505.5000, L501.9100, L500.4050, L100.0100, L300.3900 #### [facility] [address] [place], [address] CO2 [Moles/Vol] 27.0 mmol/L Normal 21.0-32.[address] [facility] Comment on above: Order Comment: 306-1 Performed By: #### L 505.5000, L501.9100, L500.4050, L100.0100, L300.3900 #### [facility] [address] [place], [address] Creatinine [Mass/Vol] 1.33 mg/dL High 0.70-1.30 [facility] Comment on above: Order Comment: 306-1 Result Comment: The validity of the calculated GFR GFRAA in patients over 70 years has not been determined. Clinical correlation is essential. Performed By: #### L 505.5000, L501.9100, L500.4050, L100.0100, L300.3900 #### [facility] [address] [place], [address] EST GFR - AA 70 mL/min Normal >[address] [facility] Comment on above: Order Comment: 306-1 Result Comment: Afri can [place] GFR Calc Performed By: #### L 505.5000, L501.9100, L500.4050, L100.0100, L300.3900 #### [facility] [address] [place], [address] GAP 8 Normal 5-[address] [facility] Comment on above: Order Comment: 306-1 Performed By: #### L 505.5000, L501.9100, L500.4050, L100.0100, L300.3900 #### [facility] [address] [place], [address] GFR/1.73 sq M.predicted among non-blacks MDRD (S/P/Bld) [Vol rate/Area] 58 mL/min/{1.73_m2} Low >[address] [facility] Comment on above: Order Comment: 306-1 Result Comment: Non- GFR Calc Performed By: #### L 505.5000, L501.9100, L500.4050, L100.0100, L300.3900 #### [facility] [address] [place], [address] Glucose [Mass/Vol] 85 mg/dL Normal 74-106 [facility] Comment on above: Order Comment: 306-1 Performed By: #### L 505.5000, L501.9100, L500.4050, L100.0100, L300.3900 #### [facility] [address] [place], [address] Potassium [Moles/Vol] 3.9 mmol/L Normal 3.5-5.1 [facility] Comment on above: Order Comment: 306-1 Performed By: #### L 505.5000, L501.9100, L500.4050, L100.0100, L300.3900 #### [facility] [address] [place], [address] Sodium [Moles/Vol] 130 mmol/L Low 136-145 [facility] Comment on above: Order Comment: 306-1 Performed By: #### L 505.5000, L501.9100, L500.4050, L100.0100, L300.3900 #### [facility] [address] [place], [address] Urea nitrogen [Mass/Vol] 10 mg/dL Normal 7-[address] [facility] Comment on above: Order Comment: 306-1 Performed By: #### L 505.5000, L501.9100, L500.4050, L100.0100, L300.3900 #### [facility] [address] [place], [address] CBC W/Diff, Automatedon 08-0 9-2023 Absolute Lymph 1.55 X10 3/uL Normal 0.83-4.[address] [facility] Comment on above: Order Comment: 306-1 Performed By: #### L 505.5000, L501.9100, L500.4050, L100.0100, L300.3900 #### [facility] [address] [place], [address] Absolute Neut 1.8 X10 3/uL Low 2.0-7.[address] [facility] Comment on above: Order Comment: 306-1 Performed By: #### L 505.5000, L501.9100, L500.4050, L100.0100, L300.3900 #### [facility] [address] [place], [address] Basophils/100 WBC (Bld) 0.7 % Normal 0-[address] [facility] Comment on above: Order Comment: 306-1 Performed By: #### L 505.5000, L501.9100, L500.4050, L100.0100, L300.3900 #### [facility] [address] [place], [address] Eosinophils/100 WBC (Bld) 2.9 % Normal 0-[address] [facility] Comment on above: Order Comment: 306-1 Performed By: #### L 505.5000, L501.9100, L500.4050, L100.0100, L300.3900 #### [facility] [address] [place], [address] Erythrocyte distribution width (RBC) [Ratio] 15.0 % High 11.6-14.[address] [facility] Comment on above: Order Comment: 306-1 Performed By: #### L 505.5000, L501.9100, L500.4050, L100.0100, L300.3900 #### [facility] [address] [place], [address] Hematocrit (Bld) [Volume fraction] 28.8 % Low 40-[address] [facility] Comment on above: Order Comment: 306-1 Performed By: #### L 505.5000, L501.9100, L500.4050, L100.0100, L300.3900 #### [facility] [address] [place], [address] Hemoglobin (Bld) [Mass/Vol] 9.6 g/dL Low 13.0-16.[address] [facility] Comment on above: Order Comment: 306-1 Performed By: #### L 505.5000, L501.9100, L500.4050, L100.0100, L300.3900 #### [facility] [address] [place], [address] IG% 0.700 Normal 0.0-0.[address] [facility] Comment on above: Order Comment: 306-1 Result Comment: IG% - Immature Granulocytes (promyelocytes, myelocytes and metamyelocytes) > 1% indicates that a LEFT SHIFT is Present. Performed By: #### L 505.5000, L501.9100, L500.4050, L100.0100, L300.3900 #### [facility] [address] [place], [address] Lymphocytes/100 WBC (Bld) 37.8 % Normal 19-[address] [facility] Comment on above: Order Comment: 306-1 Performed By: #### L 505.5000, L501.9100, L500.4050, L100.0100, L300.3900 #### [facility] [address] [place], [address] MCH (RBC) [Entitic mass] 31.1 pg Normal 27.0-32.[address] [facility] Comment on above: Order Comment: 306-1 Performed By: #### L 505.5000, L501.9100, L500.4050, L100.0100, L300.3900 #### [facility] [address] [place], [address] MCHC (RBC) [Mass/Vol] 33.3 g/dL Normal 32-36 [facility] Comment on above: Order Comment: 306-1 Performed By: #### L 505.5000, L501.9100, L500.4050, L100.0100, L300.3900 #### [facility] [address] [place], [address] MCV (RBC) [Entitic vol] 93.2 fL Normal 80-[address] [facility] Comment on above: Order Comment: 306-1 Performed By: #### L 505.5000, L501.9100, L500.4050, L100.0100, L300.3900 #### [facility] [address] [place], [address] Monocytes/100 WBC (Bld) 15.1 % High 0-[address] [facility] Comment on above: Order Comment: 306-1 Performed By: #### L 505.5000, L501.9100, L500.4050, L100.0100, L300.3900 #### [facility] [address] [place], [address] Neutrophils/100 WBC (Bld) 42.8 % Low 47-[address] [facility] Comment on above: Order Comment: 306-1 Performed By: #### L 505.5000, L501.9100, L500.4050, L100.0100, L300.3900 #### [facility] [address] [place], [address] Nucleated RBC (Bld) [#/Vol] 0 10*3/uL Normal 0-[address] [facility] Comment on above: Order Comment: 306-1 Performed By: #### L 505.5000, L501.9100, L500.4050, L100.0100, L300.3900 #### [facility] [address] [place], [address] Platelet mean volume (Bld) [Entitic vol] 10.7 fL Normal 6.2-12.[address] [facility] Comment on above: Order Comment: 306-1 Performed By: #### L 505.5000, L501.9100, L500.4050, L100.0100, L300.3900 #### [facility] [address] [place], [address] Platelets (Bld) [#/Vol] 69 10*3/uL Low 150-[address] [facility] Comment on above: Order Comment: 306-1 Performed By: #### L 505.5000, L501.9100, L500.4050, L100.0100, L300.3900 #### [facility] [address] [place], [address] RBC (Bld) [#/Vol] 3.09 10*6/uL Low 4.6-6.2 [facility] Comment on above: Order Comment: 306-1 Performed By: #### L 505.5000, L501.9100, L500.4050, L100.0100, L300.3900 #### [facility] [address] [place], [address] RDW SD 51.8 fl High 35.1-43.[address] [facility] Comment on above: Order Comment: 306-1 Performed By: #### L 505.5000, L501.9100, L500.4050, L100.0100, L300.3900 #### [facility] [address] [place], [address] WBC (Bld) [#/Vol] 4.1 10*3/uL Low 4.4-11.0 [facility] Comment on above: Order Comment: 306-1 Performed By: #### L 505.5000, L501.9100, L500.4050, L100.0100, L300.3900 #### [facility] [address] [place], [address] Magnesiumon 05-27-2024 Magnesium [Mass/Vol] 0.8 mg/dL Invalid Interpretation Code 1.6-2.[address] [facility] Comment on above: Order Comment: 306-1 Result Comment: Crit ical Result(s) Called at: 08:22:29 05/27/2024 by: JONNY Moraes. Results read back by same. Performed By: #### L 505.5000, L501.9100, L500.4050, L100.0100, L300.3900 #### [facility] [address] [place], [address] Thyroid Stim Hormone (TSH)on 05-27-2024 TSH 6.41 uIU/mL High 0.358-3.[address] [facility] Comment on above: Order Comment: 306-1 Performed By: #### L 505.5000, L501.9100, L500.4050, L100.0100, L300.3900 #### [facility] [address] [place], [address] Vitamin B12on 05-27-2024 Cobalamin (Vitamin B12) [Mass/Vol] 737 pg/mL Normal -[address] [facility] Comment on above: Order Comment: 306-1 Performed By: #### L 505.5000, L501.9100, L500.4050, L100.0100, L300.3900 #### [facility] [address] [place], [address] Vitamin D,25 Hydroxyon 05-27 Vitamin D 25-OH 64.3 ng/mL Normal [facility] Comment on above: Order Comment: 306-1 Result Comment: Celine min D 25(OH) Status Range Deficiency <20 ng/mL (50nmol/L) Insufficiency 20 - 30 ng/mL (50 - 75 nmol/L) Sufficiency 30 - 100 ng/mL (75 - 250 nmol/L) Toxicity >100 ng/mL (>250 nmol/L) Performed By: #### L 505.5000, L501.9100, L500.4050, L100.0100, L300.3900 #### [facility] [address] [place], [address] Renal Profileon 05-26-2024 Albumin [Mass/Vol] 2.6 g/dL Low 3.2-5.0 [facility] Comment on above: Performed By: #### L 505.5000, L501.9100, L500.4050, L100.0100, L300.3900 #### [facility] [address] [place], [address] BUN/CRE 6.3 RATIO Low 10-[address] [facility] Comment on above: Performed By: #### L 505.5000, L501.9100, L500.4050, L100.0100, L300.3900 #### [facility] [address] [place], [address] CA,Total 8.4 mg/dL Low 8.5-10.[address] [facility] Comment on above: Performed By: #### L 505.5000, L501.9100, L500.4050, L100.0100, L300.3900 #### [facility] [address] [place], [address] Chloride [Moles/Vol] 100 mmol/L Normal 98-107 [facility] Comment on above: Performed By: #### L 505.5000, L501.9100, L500.4050, L100.0100, L300.3900 #### [facility] [address] [place], [address] CO2 [Moles/Vol] 26.0 mmol/L Normal 21.0-32.[address] [facility] Comment on above: Performed By: #### L 505.5000, L501.9100, L500.4050, L100.0100, L300.3900 #### [facility] [address] [place], [address] Creatinine [Mass/Vol] 1.11 mg/dL Normal 0.70-1.30 [facility] Comment on above: Result Comment: The validity of the calculated GFR GFRAA in patients over 70 years has not been determined. Clinical correlation is essential. Performed By: #### L 505.5000, L501.9100, L500.4050, L100.0100, L300.3900 #### [facility] [address] [place], [address] ECRCL 67.90 ml/min Normal [facility] Comment on above: Performed By: #### L 505.5000, L501.9100, L500.4050, L100.0100, L300.3900 #### [facility] [address] [place], [address] EST GFR - AA 86 mL/min Normal >[address] [facility] Comment on above: Result Comment: Afri can [place]ian GFR Calc Performed By: #### L 505.5000, L501.9100, L500.4050, L100.0100, L300.3900 #### [facility] [address] [place], [address] GFR/1.73 sq M.predicted among non-blacks MDRD (S/P/Bld) [Vol rate/Area] 71 mL/min/{1.73_m2} Normal >[address] [facility] Comment on above: Result Comment: Non- GFR Calc Performed By: #### L 505.5000, L501.9100, L500.4050, L100.0100, L300.3900 #### [facility] [address] [place], [address] Glucose [Mass/Vol] 92 mg/dL Normal 74-106 [facility] Comment on above: Performed By: #### L 505.5000, L501.9100, L500.4050, L100.0100, L300.3900 #### [facility] [address] [place], [address] Phosphate [Mass/Vol] 3.6 mg/dL Normal 2.5-4.9 [facility] Comment on above: Performed By: #### L 505.5000, L501.9100, L500.4050, L100.0100, L300.3900 #### [facility] [address] [place], [address] Potassium [Moles/Vol] 4.1 mmol/L Normal 3.5-5.1 [facility] Comment on above: Performed By: #### L 505.5000, L501.9100, L500.4050, L100.0100, L300.3900 #### [facility] [address] [place], [address] Sodium [Moles/Vol] 132 mmol/L Low 136-145 [facility] Comment on above: Performed By: #### L 505.5000, L501.9100, L500.4050, L100.0100, L300.3900 #### [facility] [address] [place], [address] Urea nitrogen [Mass/Vol] 7 mg/dL Normal 7-[address] [facility] Comment on above: Performed By: #### L 505.5000, L501.9100, L500.4050, L100.0100, L300.3900 #### [facility] [address] [place], [address] Renal Profileon 05-25-2024 Albumin [Mass/Vol] 3.2 g/dL Normal 3.2-5.0 [facility] Comment on above: Performed By: #### L 505.5000, L501.9100, L500.4050, L100.0100, L300.3900 #### [facility] [address] [place], [address] BUN/CRE 6.6 RATIO Low 10-[address] [facility] Comment on above: Performed By: #### L 505.5000, L501.9100, L500.4050, L100.0100, L300.3900 #### [facility] [address] [place], [address] CA,Total 8.8 mg/dL Normal 8.5-10.[address] [facility] Comment on above: Performed By: #### L 505.5000, L501.9100, L500.4050, L100.0100, L300.3900 #### [facility] [address] [place], [address] Chloride [Moles/Vol] 97 mmol/L Low 98-107 [facility] Comment on above: Performed By: #### L 505.5000, L501.9100, L500.4050, L100.0100, L300.3900 #### [facility] [address] [place], [address] CO2 [Moles/Vol] 22.0 mmol/L Normal 21.0-32.[address] [facility] Comment on above: Performed By: #### L 505.5000, L501.9100, L500.4050, L100.0100, L300.3900 #### [facility] [address] [place], [address] Creatinine [Mass/Vol] 1.06 mg/dL Normal 0.70-1.30 [facility] Comment on above: Result Comment: The validity of the calculated GFR GFRAA in patients over 70 years has not been determined. Clinical correlation is essential. Performed By: #### L 505.5000, L501.9100, L500.4050, L100.0100, L300.3900 #### [facility] [address] [place], [address] ECRCL 71.10 ml/min Normal [facility] Comment on above: Performed By: #### L 505.5000, L501.9100, L500.4050, L100.0100, L300.3900 #### [facility] [address] [place], [address] EST GFR - AA 90 mL/min Normal >[address] [facility] Comment on above: Result Comment: Afri can [place]ian GFR Calc Performed By: #### L 505.5000, L501.9100, L500.4050, L100.0100, L300.3900 #### [facility] [address] [place], [address] GFR/1.73 sq M.predicted among non-blacks MDRD (S/P/Bld) [Vol rate/Area] 75 mL/min/{1.73_m2} Normal >[address] [facility] Comment on above: Result Comment: Non- GFR Calc Performed By: #### L 505.5000, L501.9100, L500.4050, L100.0100, L300.3900 #### [facility] [address] [place], [address] Glucose [Mass/Vol] 147 mg/dL High 74-106 [facility] Comment on above: Result Comment: Fast ing Glucose result greater than or equal to 126 mg/dL suggests DIABETES MELLITUS per A.D.A. criteria. Performed By: #### L 505.5000, L501.9100, L500.4050, L100.0100, L300.3900 #### [facility] [address] [place], [address] Phosphate [Mass/Vol] 2.6 mg/dL Normal 2.5-4.9 [facility] Comment on above: Performed By: #### L 505.5000, L501.9100, L500.4050, L100.0100, L300.3900 #### [facility] [address] [place], [address] Potassium [Moles/Vol] 3.6 mmol/L Normal 3.5-5.1 [facility] Comment on above: Performed By: #### L 505.5000, L501.9100, L500.4050, L100.0100, L300.3900 #### [facility] [address] [place], [address] Sodium [Moles/Vol] 130 mmol/L Low 136-145 [facility] Comment on above: Performed By: #### L 505.5000, L501.9100, L500.4050, L100.0100, L300.3900 #### [facility] [address] [place], [address] Urea nitrogen [Mass/Vol] 7 mg/dL Normal 7-[address] [facility] Comment on above: Performed By: #### L 505.5000, L501.9100, L500.4050, L100.0100, L300.3900 #### [facility] [address] [place], [address] Bedside Glucoseon 05-24-2024 FINGERSTICK GLU 148 mg/dL High 74-[address] [facility] Comment on above: Result Comment: CORINNE GEMENT OF PATIENT CARE PER NURSING PROTOCOL Performed By: #### L 505.5000, L501.9100, L500.4050, L100.0100, L300.3900 #### [facility] [address] [place], [address] FINGERSTICK GLU 102 mg/dL Normal 74-[address] [facility] Comment on above: Result Comment: CORINNE GEMENT OF PATIENT CARE PER NURSING PROTOCOL Performed By: #### L 505.5000, L501.9100, L500.4050, L100.0100, L300.3900 #### [facility] [address] [place], [address] CBC-Complete Blood Cnt No Di ffon 05-24-2024 PATH REV Reviewed Normal [facility] Comment on above: Result Comment: Panc ytopenia. Leukopenia and neutropenia. Normocytic anemia. MARKED Thrombocytopenia. Clinical correlation necessary. Sundar Lei M.D. 05/24/24 AMENDED REPORT 05/24/24 1453 PATH REV previously reported as: February Performed By: #### L 501.5300, L501.5200 #### [facility] [address] [place], [address] Renal Profileon 05-24-2024 Albumin [Mass/Vol] 2.9 g/dL Low 3.2-5.0 [facility] Comment on above: Performed By: #### L 505.5000, L501.9100, L500.4050, L100.0100, L300.3900 #### [facility] [address] [place], [address] BUN/CRE 7.4 RATIO Low 10-[address] [facility] Comment on above: Performed By: #### L 505.5000, L501.9100, L500.4050, L100.0100, L300.3900 #### [facility] [address] [place], [address] CA,Total 8.5 mg/dL Normal 8.5-10.[address] [facility] Comment on above: Performed By: #### L 505.5000, L501.9100, L500.4050, L100.0100, L300.3900 #### [facility] [address] [place], [address] Chloride [Moles/Vol] 103 mmol/L Normal 98-107 [facility] Comment on above: Performed By: #### L 505.5000, L501.9100, L500.4050, L100.0100, L300.3900 #### [facility] [address] [place], [address] CO2 [Moles/Vol] 26.0 mmol/L Normal 21.0-32.[address] [facility] Comment on above: Performed By: #### L 505.5000, L501.9100, L500.4050, L100.0100, L300.3900 #### [facility] [address] [place], [address] Creatinine [Mass/Vol] 0.95 mg/dL Normal 0.70-1.30 [facility] Comment on above: Result Comment: The validity of the calculated GFR GFRAA in patients over 70 years has not been determined. Clinical correlation is essential. Performed By: #### L 505.5000, L501.9100, L500.4050, L100.0100, L300.3900 #### [facility] [address] [place], [address] ECRCL 79.33 ml/min Normal [facility] Comment on above: Performed By: #### L 505.5000, L501.9100, L500.4050, L100.0100, L300.3900 #### [facility] [address] [place], [address] EST GFR - AA 103 mL/min Normal >[address] [facility] Comment on above: Result Comment: Afri can [place] GFR Calc Performed By: #### L 505.5000, L501.9100, L500.4050, L100.0100, L300.3900 #### [facility] [address] [place], [address] GFR/1.73 sq M.predicted among non-blacks MDRD (S/P/Bld) [Vol rate/Area] 85 mL/min/{1.73_m2} Normal >[address] [facility] Comment on above: Result Comment: Non- GFR Calc Performed By: #### L 505.5000, L501.9100, L500.4050, L100.0100, L300.3900 #### [facility] [address] [place], [address] Glucose [Mass/Vol] 108 mg/dL High 74-106 [facility] Comment on above: Result Comment: Fast ing Glucose result from 100 to 125 mg/dL suggests IMPAIRED HOMEOSTASIS per A.D.A. criteria. Performed By: #### L 505.5000, L501.9100, L500.4050, L100.0100, L300.3900 #### [facility] [address] [place], [address] Phosphate [Mass/Vol] 1.0 mg/dL Invalid Interpretation Code 2.5-4.[address] [facility] Comment on above: Result Comment: Crit ical Result(s) Called at: 07:38:55 05/24/2024 by: JONNY SLAUGHTER to Aminta Alas. Results read back by same. Performed By: #### L 505.5000, L501.9100, L500.4050, L100.0100, L300.3900 #### [facility] [address] [place], [address] Potassium [Moles/Vol] 3.9 mmol/L Normal 3.5-5.1 [facility] Comment on above: Performed By: #### L 505.5000, L501.9100, L500.4050, L100.0100, L300.3900 #### [facility] [address] [place], [address] Sodium [Moles/Vol] 135 mmol/L Low 136-145 [facility] Comment on above: Performed By: #### L 505.5000, L501.9100, L500.4050, L100.0100, L300.3900 #### [facility] [address] [place], [address] Urea nitrogen [Mass/Vol] 7 mg/dL Normal 7-[address] [facility] Comment on above: Performed By: #### L 505.5000, L501.9100, L500.4050, L100.0100, L300.3900 #### [facility] [address] [place], [address] Basic Metabolic Profile (BMP )on 05-23-2024 BUN/CRE 8.4 RATIO Low 10-[address] [facility] Comment on above: Performed By: #### L 505.5000, L501.9100, L500.4050, L100.0100, L300.3900 #### [facility] [address] [place], [address] CA,Total 8.2 mg/dL Low 8.5-10.[address] [facility] Comment on above: Performed By: #### L 505.5000, L501.9100, L500.4050, L100.0100, L300.3900 #### [facility] [address] [place], [address] Chloride [Moles/Vol] 103 mmol/L Normal 98-107 [facility] Comment on above: Performed By: #### L 505.5000, L501.9100, L500.4050, L100.0100, L300.3900 #### [facility] [address] [place], [address] CO2 [Moles/Vol] 26.0 mmol/L Normal 21.0-32.[address] [facility] Comment on above: Performed By: #### L 505.5000, L501.9100, L500.4050, L100.0100, L300.3900 #### [facility] [address] [place], [address] Creatinine [Mass/Vol] 0.95 mg/dL Normal 0.70-1.30 [facility] Comment on above: Result Comment: The validity of the calculated GFR GFRAA in patients over 70 years has not been determined. Clinical correlation is essential. Performed By: #### L 505.5000, L501.9100, L500.4050, L100.0100, L300.3900 #### [facility] [address] [place], [address] ECRCL 79.33 ml/min Normal [facility] Comment on above: Performed By: #### L 505.5000, L501.9100, L500.4050, L100.0100, L300.3900 #### [facility] [address] [place], [address] EST GFR - AA 102 mL/min Normal >[address] [facility] Comment on above: Result Comment: Afri can [place] GFR Calc Performed By: #### L 505.5000, L501.9100, L500.4050, L100.0100, L300.3900 #### [facility] [address] [place], [address] GAP 7 Normal 5-[address] [facility] Comment on above: Performed By: #### L 505.5000, L501.9100, L500.4050, L100.0100, L300.3900 #### [facility] [address] [place], [address] GFR/1.73 sq M.predicted among non-blacks MDRD (S/P/Bld) [Vol rate/Area] 85 mL/min/{1.73_m2} Normal >[address] [facility] Comment on above: Result Comment: Non- GFR Calc Performed By: #### L 505.5000, L501.9100, L500.4050, L100.0100, L300.3900 #### [facility] [address] [place], [address] Glucose [Mass/Vol] 124 mg/dL High 74-106 [facility] Comment on above: Result Comment: Fast ing Glucose result from 100 to 125 mg/dL suggests IMPAIRED HOMEOSTASIS per A.D.A. criteria. Performed By: #### L 505.5000, L501.9100, L500.4050, L100.0100, L300.3900 #### [facility] [address] [place], [address] Potassium [Moles/Vol] 3.7 mmol/L Normal 3.5-5.1 [facility] Comment on above: Performed By: #### L 505.5000, L501.9100, L500.4050, L100.0100, L300.3900 #### [facility] [address] [place], [address] Sodium [Moles/Vol] 136 mmol/L Normal 136-145 [facility] Comment on above: Performed By: #### L 505.5000, L501.9100, L500.4050, L100.0100, L300.3900 #### [facility] [address] [place], [address] Urea nitrogen [Mass/Vol] 8 mg/dL Normal 7-[address] [facility] Comment on above: Performed By: #### L 505.5000, L501.9100, L500.4050, L100.0100, L300.3900 #### [facility] [address] [place], [address] Bedside Glucoseon 05-23-2024 FINGERSTICK GLU 143 mg/dL High 74-[address] [facility] Comment on above: Result Comment: CORINNE LONDONO OF PATIENT CARE PER NURSING PROTOCOL Performed By: #### L 505.5000, L501.9100, L500.4050, L100.0100, L300.3900 #### [facility] [address] [place], [address] FINGERSTICK GLU 115 mg/dL High 74-[address] [facility] Comment on above: Result Comment: CORINNE GEMENT OF PATIENT CARE PER NURSING PROTOCOL Performed By: #### L 505.5000, L501.9100, L500.4050, L100.0100, L300.3900 #### [facility] [address] [place], [address] FINGERSTICK GLU 139 mg/dL High 74-[address] [facility] Comment on above: Result Comment: CORINNE GEMENT OF PATIENT CARE PER NURSING PROTOCOL Performed By: #### L 505.5000, L501.9100, L500.4050, L100.0100, L300.3900 #### [facility] [address] [place], [address] CBC W/Diff, Automatedon 08-0 PATH REV Reviewed Normal [facility] Comment on above: Order Comment: CRITI JAMES VALUE VERIFIED. CALLED TO DEMETRIUS GRIFFITH05/22/24 0753 Jonh Powers.RESULTS READ BACK BY SAME. Result Comment: Panc ytopenia. Leukopenia and neutropenia. Normocytic anemia. MARKED Thrombocytopenia. Clinical correlation necessary. Sundar Lei M.D. 05/23/24 AMENDED REPORT 05/23/24 1332 PATH REV previously reported as: February Performed By: #### L 505.5000, L501.9100, L500.4050, L100.0100, L300.3900 #### [facility] [address] [place], [address] Differential Commenton 05-23 SMEAR COMMENT SCANNED Normal [facility] Comment on above: Result Comment: JÚNIOR ED THROMBOCYTOPENIA Performed By: #### L 501.5300, L501.5200 #### [facility] [address] [place], [address] Magnesiumon 05-23-2024 Magnesium [Mass/Vol] 2.2 mg/dL Normal 1.6-2.6 [facility] Comment on above: Performed By: #### L 505.5000, L501.9100, L500.4050, L100.0100, L300.3900 #### [facility] [address] [place], [address] Phosphoruson 05-23-2024 Phosphate [Mass/Vol] 1.3 mg/dL Low 2.5-4.9 [facility] Comment on above: Performed By: #### L 505.5000, L501.9100, L500.4050, L100.0100, L300.3900 #### [facility] [address] [place], [address] Bedside Glucoseon 05-22-2024 FINGERSTICK GLU 105 mg/dL Normal 74-[address] [facility] Comment on above: Result Comment: CORINNE GEMENT OF PATIENT CARE PER NURSING PROTOCOL Performed By: #### L 505.5000, L501.9100, L500.4050, L100.0100, L300.3900 #### [facility] [address] [place], [address] FINGERSTICK GLU 52 mg/dL Low 74-[address] [facility] Comment on above: Result Comment: CORINNE GEMENT OF PATIENT CARE PER NURSING PROTOCOL Performed By: #### L 501.5300, L501.5200 #### [facility] [address] [place], [address] FINGERSTICK GLU 92 mg/dL Normal 74-[address] [facility] Comment on above: Result Comment: CORINNE GEMENT OF PATIENT CARE PER NURSING PROTOCOL Performed By: #### L 505.5000, L501.9100, L500.4050, L100.0100, L300.3900 #### [facility] [address] [place], [address] FINGERSTICK GLU 98 mg/dL Normal 74-[address] [facility] Comment on above: Result Comment: CORINNE GEMENT OF PATIENT CARE PER NURSING PROTOCOL Performed By: #### L 505.5000, L501.9100, L500.4050, L100.0100, L300.3900 #### [facility] [address] [place], [address] FINGERSTICK GLU 69 mg/dL Low 74-[address] [facility] Comment on above: Result Comment: CORINNE LONDONO OF PATIENT CARE PER NURSING PROTOCOL Performed By: #### L 505.5000, L501.9100, L500.4050, L100.0100, L300.3900 #### [facility] [address] [place], [address] Comprehensive Metabolic Prof ilon 05-22-2024 Albumin [Mass/Vol] 3.2 g/dL Normal 3.2-5.0 [facility] Comment on above: Performed By: #### L 505.5000, L501.9100, L500.4050, L100.0100, L300.3900 #### [facility] [address] [place], [address] Albumin/Globulin [Mass ratio] 1.0 {ratio} Normal 0.9-2.[address] [facility] Comment on above: Performed By: #### L 505.5000, L501.9100, L500.4050, L100.0100, L300.3900 #### [facility] [address] [place], [address] ALK P 87 U/L Normal 45-[address] [facility] Comment on above: Performed By: #### L 505.5000, L501.9100, L500.4050, L100.0100, L300.3900 #### [facility] [address] [place], [address] ALT [Catalytic activity/Vol] 76 U/L High 16-[address] [facility] Comment on above: Performed By: #### L 505.5000, L501.9100, L500.4050, L100.0100, L300.3900 #### [facility] [address] [place], [address] AST [Catalytic activity/Vol] 168 U/L High 15-[address] [facility] Comment on above: Performed By: #### L 505.5000, L501.9100, L500.4050, L100.0100, L300.3900 #### [facility] [address] [place], [address] Bilirubin [Mass/Vol] 1.00 mg/dL Normal 0.20-1.00 [facility] Comment on above: Result Comment: For patients on eltrombopag therapy, use of Dimension [place] TBIL is not recommended. Performed By: #### L 505.5000, L501.9100, L500.4050, L100.0100, L300.3900 #### [facility] [address] [place], [address] BUN/CRE 8.7 RATIO Low 10-[address] [facility] Comment on above: Performed By: #### L 505.5000, L501.9100, L500.4050, L100.0100, L300.3900 #### [facility] [address] [place], [address] CA,Total 7.9 mg/dL Low 8.5-10.[address] [facility] Comment on above: Performed By: #### L 505.5000, L501.9100, L500.4050, L100.0100, L300.3900 #### [facility] [address] [place], [address] Chloride [Moles/Vol] 101 mmol/L Normal 98-107 [facility] Comment on above: Performed By: #### L 505.5000, L501.9100, L500.4050, L100.0100, L300.3900 #### [facility] [address] [place], [address] CO2 [Moles/Vol] 18.0 mmol/L Low 21.0-32.[address] [facility] Comment on above: Performed By: #### L 505.5000, L501.9100, L500.4050, L100.0100, L300.3900 #### [facility] [address] [place], [address] Creatinine [Mass/Vol] 1.04 mg/dL Normal 0.70-1.30 [facility] Comment on above: Result Comment: The validity of the calculated GFR GFRAA in patients over 70 years has not been determined. Clinical correlation is essential. Performed By: #### L 505.5000, L501.9100, L500.4050, L100.0100, L300.3900 #### [facility] [address] [place], [address] ECRCL 72.47 ml/min Normal [facility] Comment on above: Performed By: #### L 505.5000, L501.9100, L500.4050, L100.0100, L300.3900 #### [facility] [address] [place], [address] EST GFR - AA 92 mL/min Normal >[address] [facility] Comment on above: Result Comment: Afri can [place] GFR Calc Performed By: #### L 505.5000, L501.9100, L500.4050, L100.0100, L300.3900 #### [facility] [address] [place], [address] GAP 14 Normal 5-[address] [facility] Comment on above: Performed By: #### L 505.5000, L501.9100, L500.4050, L100.0100, L300.3900 #### [facility] [address] [place], [address] GFR/1.73 sq M.predicted among non-blacks MDRD (S/P/Bld) [Vol rate/Area] 76 mL/min/{1.73_m2} Normal >[address] [facility] Comment on above: Result Comment: Non- GFR Calc Performed By: #### L 505.5000, L501.9100, L500.4050, L100.0100, L300.3900 #### [facility] [address] [place], [address] Globulin (S) [Mass/Vol] 3.1 g/dL Normal 2.2-4.[address] [facility] Comment on above: Performed By: #### L 505.5000, L501.9100, L500.4050, L100.0100, L300.3900 #### [facility] [address] [place], [address] Glucose [Mass/Vol] 91 mg/dL Normal 74-106 [facility] Comment on above: Performed By: #### L 505.5000, L501.9100, L500.4050, L100.0100, L300.3900 #### [facility] [address] [place], [address] Potassium [Moles/Vol] 4.0 mmol/L Normal 3.5-5.1 [facility] Comment on above: Performed By: #### L 505.5000, L501.9100, L500.4050, L100.0100, L300.3900 #### [facility] [address] [place], [address] Sodium [Moles/Vol] 133 mmol/L Low 136-145 [facility] Comment on above: Performed By: #### L 505.5000, L501.9100, L500.4050, L100.0100, L300.3900 #### [facility] [address] [place], [address] T PROT 6.3 g/dL Low 6.4-8.[address] [facility] Comment on above: Performed By: #### L 505.5000, L501.9100, L500.4050, L100.0100, L300.3900 #### [facility] [address] [place], [address] Urea nitrogen [Mass/Vol] 9 mg/dL Normal 7-[address] [facility] Comment on above: Performed By: #### L 505.5000, L501.9100, L500.4050, L100.0100, L300.3900 #### [facility] [address] [place], [address] Magnesiumon 05-22-2024 Magnesium [Mass/Vol] 1.4 mg/dL Low 1.6-2.6 [facility] Comment on above: Performed By: #### L 505.5000, L501.9100, L500.4050, L100.0100, L300.3900 #### [facility] [address] [place], [address] Phosphoruson 05-22-2024 Phosphate [Mass/Vol] 1.8 mg/dL Low 2.5-4.9 [facility] Comment on above: Performed By: #### L 505.5000, L501.9100, L500.4050, L100.0100, L300.3900 #### [facility] [address] [place], [address] Alcohol, Blood (Medical)-Ser umon 05-21-2024 SERUM ETOH [...] [facility] [address] [place], [address] Brain/Head without Contrasto n 05-21-2024 Brain/Head without Contrast [facility] [address] [place], [place] [address] Brain/Head without Contrast MR#: [id number] Acct: [id number] Name: WOODY NI Rep #: [id number] : 1960 M 64 From: Mundo Mackenzie DO PCP: Dr. Jani Quezada MD Status: REG ER Study: Brain/Head without Contrast Date of Exam: 01/09 Exam# [id number] Ordering Dr: Stella Mackay DO [id number] STUDY: CT BRAIN WITHOUT CONTRAST REASON FOR [...] Signed: Mundo Mackenzie DO at 21:57 EDT , CC: Dr. Jani Quezada MD; Dr. Stella Mackay DO Rope Cleaner: Signed Normal [facility] CBC W/Diff, Automatedon 08- Anisocytosis Ql (Bld) RARE Normal [facility] Comment on above: Performed By: #### L 505.5000, L501.9100, L500.4050, L100.0100, L300.3900 #### [facility] [address] [place], [address] MACROCYTOSIS RARE Normal [facility] Comment on above: Performed By: #### L 505.5000, L501.9100, L500.4050, L100.0100, L300.3900 #### [facility] [address] [place], [address] PLT EST MOD DEC Normal ADEQ [facility] Comment on above: Performed By: #### L 505.5000, L501.9100, L500.4050, L100.0100, L300.3900 #### [facility] [address] [place], [address] RED CELL MORPH N CHROM Normal NORM C C [facility] Comment on above: Performed By: #### L 505.5000, L501.9100, L500.4050, L100.0100, L300.3900 #### [facility] [address] [place], [address] SMEAR COMMENT SEECOMMENT [facility] [facility] Comment on above: Result Comment: LYMP HOPENIA NOTED Performed By: #### L 505.5000, L501.9100, L500.4050, L100.0100, L300.3900 #### [facility] [address] [place], [address] Comprehensive Metabolic Prof ilon 05-21-2024 Albumin [Mass/Vol] 3.7 g/dL Normal 3.2-5.0 [facility] Comment on above: Performed By: #### L 505.5000, L501.9100, L500.4050, L100.0100, L300.3900 #### [facility] [address] [place], [address] Albumin/Globulin [Mass ratio] 1.1 {ratio} Normal 0.9-2.[address] [facility] Comment on above: Performed By: #### L 505.5000, L501.9100, L500.4050, L100.0100, L300.3900 #### [facility] [address] [place], [address] ALK P 96 U/L Normal 45-[address] [facility] Comment on above: Performed By: #### L 505.5000, L501.9100, L500.4050, L100.0100, L300.3900 #### [facility] [address] [place], [address] ALT [Catalytic activity/Vol] 84 U/L High 16-[address] [facility] Comment on above: Performed By: #### L 505.5000, L501.9100, L500.4050, L100.0100, L300.3900 #### [facility] [address] [place], [address] AST [Catalytic activity/Vol] 197 U/L High 15-[address] [facility] Comment on above: Performed By: #### L 505.5000, L501.9100, L500.4050, L100.0100, L300.3900 #### [facility] [address] [place], [address] Bilirubin [Mass/Vol] 0.90 mg/dL Normal 0.20-1.00 [facility] Comment on above: Result Comment: For patients on eltrombopag therapy, use of Dimension [place] TBIL is not recommended. Performed By: #### L 505.5000, L501.9100, L500.4050, L100.0100, L300.3900 #### [facility] [address] [place], [address] BUN/CRE 8.9 RATIO Low 10-[address] [facility] Comment on above: Performed By: #### L 505.5000, L501.9100, L500.4050, L100.0100, L300.3900 #### [facility] [address] [place], [address] CA,Total 8.6 mg/dL Normal 8.5-10.[address] [facility] Comment on above: Performed By: #### L 505.5000, L501.9100, L500.4050, L100.0100, L300.3900 #### [facility] [address] [place], [address] Chloride [Moles/Vol] 92 mmol/L Low 98-107 [facility] Comment on above: Performed By: #### L 505.5000, L501.9100, L500.4050, L100.0100, L300.3900 #### [facility] [address] [place], [address] CO2 [Moles/Vol] 17.0 mmol/L Low 21.0-32.[address] [facility] Comment on above: Performed By: #### L 505.5000, L501.9100, L500.4050, L100.0100, L300.3900 #### [facility] [address] [place], [address] Creatinine [Mass/Vol] 1.23 mg/dL Normal 0.70-1.30 [facility] Comment on above: Result Comment: The validity of the calculated GFR GFRAA in patients over 70 years has not been determined. Clinical correlation is essential. Performed By: #### L 505.5000, L501.9100, L500.4050, L100.0100, L300.3900 #### [facility] [address] [place], [address] ECRCL 62.65 ml/min Normal [facility] Comment on above: Performed By: #### L 505.5000, L501.9100, L500.4050, L100.0100, L300.3900 #### [facility] [address] [place], [address] EST GFR - AA 76 mL/min Normal >[address] [facility] Comment on above: Result Comment: Afri can [place] GFR Calc Performed By: #### L 505.5000, L501.9100, L500.4050, L100.0100, L300.3900 #### [facility] [address] [place], [address] GAP 18 High 5-[address] [facility] Comment on above: Performed By: #### L 505.5000, L501.9100, L500.4050, L100.0100, L300.3900 #### [facility] [address] [place], [address] GFR/1.73 sq M.predicted among non-blacks MDRD (S/P/Bld) [Vol rate/Area] 63 mL/min/{1.73_m2} Normal >[address] [facility] Comment on above: Result Comment: Non- GFR Calc Performed By: #### L 505.5000, L501.9100, L500.4050, L100.0100, L300.3900 #### [facility] [address] [place], [address] Globulin (S) [Mass/Vol] 3.4 g/dL Normal 2.2-4.[address] [facility] Comment on above: Performed By: #### L 505.5000, L501.9100, L500.4050, L100.0100, L300.3900 #### [facility] [address] [place], [address] Glucose [Mass/Vol] 96 mg/dL Normal 74-106 [facility] Comment on above: Performed By: #### L 505.5000, L501.9100, L500.4050, L100.0100, L300.3900 #### [facility] [address] [place], [address] Potassium [Moles/Vol] 4.1 mmol/L Normal 3.5-5.1 [facility] Comment on above: Performed By: #### L 505.5000, L501.9100, L500.4050, L100.0100, L300.3900 #### [facility] [address] [place], [address] Sodium [Moles/Vol] 127 mmol/L Low 136-145 [facility] Comment on above: Performed By: #### L 505.5000, L501.9100, L500.4050, L100.0100, L300.3900 #### [facility] [address] [place], [address] T PROT 7.1 g/dL Normal 6.4-8.[address] [facility] Comment on above: Performed By: #### L 505.5000, L501.9100, L500.4050, L100.0100, L300.3900 #### [facility] [address] [place], [address] Urea nitrogen [Mass/Vol] 11 mg/dL Normal 7-[address] [facility] Comment on above: Performed By: #### L 505.5000, L501.9100, L500.4050, L100.0100, L300.3900 #### [facility] [address] [place], [address] Emergency Department Summary on 05-21-2024 Emergency Department Summary [facility] Medical Records Department [address] [place] [address] Emergency Department Summary 05/21/24 MR#: [id number] Acct: [id number] Name: WOODY NI Rep #: [id number] : 1960 64 From: Stella Mackay DO [...] drug use. Patient wants detox from alcohol. [facility] Medical History Alcohol dependence Alcohol abuse Diabetes [...] [facility] H AND P Exam - Hospitaliston 05-21-2024 H&P Exam - Hospitalist [facility] Medical Records Department [address] [place] [address] H P Exam - Hospitalist 05/21/24 2306 MR#: [id number] Acct: [id number] Name: WOODY NI Rep #: [id number] : 1960 64 From: Ruddy Galdamez DO PCP: Dr. Jani Quezada MD Status:ADM IN [place] [facility] HPI - General General Date of Admission: [...] go up that so that was in [facility] presented to [facility] who discharged him to home. Patient has continued to drink since being at home. After his fall he is now requesting treatment for alcohol withdrawal. [facility] Medical History Alcohol dependence Alcohol [...] Contr ason 05-21-2024 Spine Cervical without Contras [facility] Imaging Services [address] [place], [place] [address] Spine Cervical without Contras MR#: [id number] Acct: [id number] Name: WOODY NI Rep #: [id number] : 1960 M 64 From: Mundo Mackenzie DO PCP: Dr. Jani Quezada MD Status: REG ER Study: Spine Cervical without Contras Date of Exam: 0 05/21/24 Exam# [id number] Ordering Dr: Stella Mackay DO [id number] STUDY: CT CERVICAL SPINE WITHOUT CONTRAST REASON [...] 22:12 EDT Reading Location ID and State: [facility] / [place] Tel [id number], Service support , CC: Dr. Jani Quezada MD; Dr. Stella Mackay DO Rope Cleaner: Signed Normal [facility] Urine Drug Screen (VISTA)on 05-21-2024 AMPHETAMINES Negative Normal <1000 ng/mL [facility] Comment on above: Performed By: #### L 501.5300, L501.5200 #### [facility] [address] [place], [place], [address] BARBITIURATES Negative Normal < 200 ng/mL [facility] Comment on above: Performed By: #### L 501.5300, L501.5200 #### [facility] [address] [place], [place], [address] BENZODIAZIPINE Negative Normal < 200 ng/mL [facility] Comment on above: Performed By: #### L 501.5300, L501.5200 #### [facility] [address] [place], [address] COCAINE Negative Normal < 300 ng/mL [facility] Comment on above: Performed By: #### L 501.5300, L501.5200 #### [facility] [address] [place], [address] ECSTACY Negative Normal < 500 ng/mL [facility] Comment on above: Performed By: #### L 501.5300, L501.5200 #### [facility] [address] [place], [address] METHADONE Negative Normal < 300 ng/mL [facility] Comment on above: Performed By: #### L 501.5300, L501.5200 #### [facility] [address] [place], [place], [facility] OPIATES Negative Normal < 300 ng/mL [facility] Comment on above: Performed By: #### L 501.5300, L501.5200 #### [facility] [address] [place], [place], [facility] PCP Negative Normal < 25 ng/mL [facility] Comment on above: Performed By: #### L 501.5300, L501.5200 #### [facility] [address] [place], [address] THC Positive Abnormal < 50 ng/mL [facility] Comment on above: Performed By: #### L 501.5300, L501.5200 #### [facility] [address] [place], [address] VISTA UDS PH [address] [facility] Comment on above: Performed By: #### L 501.5300, L501.5200 #### [facility] [address] [place], [address] Emergency Department Summary on 05-03-2024 Emergency Department Summary [facility] Medical Records Department [address] [place] [address] Emergency Department Summary 05/03/24 MR#: [id number] Acct: [id number] Name: WOODY NI Rep #: [id number] : 1960 64 From: Daniel Knapp DO [...] was brought to the hospital for evaluation [facility] Medical History Alcohol dependence Alcohol abuse Diabetes [...] Hospital Laboratory [address] [facility] [address] BARBITIURATES Positive Abnormal < 200 ng/mL [facility] Comment on above: Performed By: #### L 500.2500, L100.0100, L501.5200 #### [facility] [address] [facility] [address] BENZODIAZIPINE Negative Normal < 200 ng/mL [facility] Comment on above: Performed By: #### L 500.2500, L100.0100, L501.5200 #### [facility] [address] [place], [address] COCAINE Negative Normal < 300 ng/mL [facility] Comment on above: Performed By: #### L 500.2500, L100.0100, L501.5200 #### [facility] [address] [facility] [address] ECSTACY Negative Normal < 500 ng/mL [facility] Comment on above: Performed By: #### L 500.2500, L100.0100, L501.5200 #### [facility] [address] [facility] [address] METHADONE Negative Normal < 300 ng/mL [facility] Comment on above: Performed By: #### L 500.2500, L100.0100, L501.5200 #### [facility] [address] [place], [address] OPIATES Negative Normal < 300 ng/mL [facility] Comment on above: Performed By: #### L 500.2500, L100.0100, L501.5200 #### [facility] [address] [place], [address] PCP Negative Normal < 25 ng/mL [facility] Comment on above: Performed By: #### L 500.2500, L100.0100, L501.5200 #### [facility] [address] [place], [address] THC Positive Abnormal < 50 ng/mL [facility] Comment on above: Performed By: #### L 500.2500, L100.0100, L501.5200 #### [facility] [address] [place], [address] VISTA UDS PH [address] [facility] Comment on above: Performed By: #### L 500.2500, L100.0100, L501.5200 #### [facility] [address] [place], [address] Alcohol, Blood (Medical)-Ser umon 05-02-2024 SERUM ETOH 347.0 mg/dL Invalid Interpretation Code [facility] Comment on above: Result Comment: Crit ical Result(s) Called at: 23:58:38 05/02/2024 by: Moshe Werner. to [employer]. Results read back by same. The serum:whole blood ethanol ratio is approximately 1.14 and varies slightly with hematocrit. Medical Alcohol reference interval and critical value in non-tolerant individuals; 50 - 100 Impairment 100 Intoxication 100 - 250 Severe Poisoning 250 - 400 Deep/possible fatal coma Performed By: #### L 500.2500, L100.0100, L501.5200 #### [facility] [address] [place], [address] Basic Metabolic Profile (BMP )on 05-02-2024 BUN/CRE 12.7 RATIO Normal 10-[address] [facility] Comment on above: Performed By: #### L 500.2500, L100.0100, L501.5200 #### [facility] [address] [place], [address] CA,Total 8.7 mg/dL Normal 8.5-10.[address] [facility] Comment on above: Performed By: #### L 500.2500, L100.0100, L501.5200 #### [facility] [address] [place], [address] Chloride [Moles/Vol] 100 mmol/L Normal 98-107 [facility] Comment on above: Performed By: #### L 500.2500, L100.0100, L501.5200 #### [facility] [address] [place], [address] CO2 [Moles/Vol] 16.0 mmol/L Low 21.0-32.[address] [facility] Comment on above: Performed By: #### L 500.2500, L100.0100, L501.5200 #### [facility] [address] [place], [address] Creatinine [Mass/Vol] 0.95 mg/dL Normal 0.70-1.30 [facility] Comment on above: Result Comment: The validity of the calculated GFR GFRAA in patients over 70 years has not been determined. Clinical correlation is essential. Performed By: #### L 500.2500, L100.0100, L501.5200 #### [facility] [address] [place], [address] ECRCL 81.11 ml/min Normal [facility] Comment on above: Performed By: #### L 500.2500, L100.0100, L501.5200 #### [facility] [address] [place], [address] EST GFR - AA 103 mL/min Normal >[address] [facility] Comment on above: Result Comment: Afri can [place] GFR Calc Performed By: #### L 500.2500, L100.0100, L501.5200 #### [facility] [address] [place], [address] GAP 16 High 5-[address] [facility] Comment on above: Performed By: #### L 500.2500, L100.0100, L501.5200 #### [facility] [address] [place], [address] GFR/1.73 sq M.predicted among non-blacks MDRD (S/P/Bld) [Vol rate/Area] 85 mL/min/{1.73_m2} Normal >[address] [facility] Comment on above: Result Comment: Non- GFR Calc Performed By: #### L 500.2500, L100.0100, L501.5200 #### [facility] [address] [place], [address] Glucose [Mass/Vol] 88 mg/dL Normal 74-106 [facility] Comment on above: Performed By: #### L 500.2500, L100.0100, L501.5200 #### [facility] [address] [place], [address] Potassium [Moles/Vol] 3.3 mmol/L Low 3.5-5.1 [facility] Comment on above: Performed By: #### L 500.2500, L100.0100, L501.5200 #### [facility] [address] [place], [address] Sodium [Moles/Vol] 132 mmol/L Low 136-145 [facility] Comment on above: Performed By: #### L 500.2500, L100.0100, L501.5200 #### [facility] [address] [place], [address] Urea nitrogen [Mass/Vol] 12 mg/dL Normal 7-[address] [facility] Comment on above: Performed By: #### L 500.2500, L100.0100, L501.5200 #### [facility] [address] [place], [address] Brain/Head without Contrasto n 05-02-2024 Brain/Head without Contrast [facility] Imaging Services [address] [place] [address] Brain/Head without Contrast MR#: [id number] Acct: [id number] Name: WOODY NI Rep #: [id number] : 1960 M 64 From: Beto Urena MD PCP: Dr. Jani Quezada MD Status: REG ER Study: Brain/Head without Contrast Date of Exam: 04/18 03/11 Exam# [id number] Ordering Dr: Daniel [place] DO [id number] INDICATION: head injury EXAMINATION: CT BRAIN - [...] Dr. Jani Quezada MD; Daniel [place] DO Rope Cleaner: Signed Normal [facility] CBC W/Diff, Automatedon 04-18 Absolute Lymph 2.93 X10 3/uL Normal 0.83-4.[address] [facility] Comment on above: Performed By: #### L 500.2500, L100.0100, L501.5200 #### [facility] [address] [place], [address] Absolute Neut 4.2 X10 3/uL Normal 2.0-7.[address] [facility] Comment on above: Performed By: #### L 500.2500, L100.0100, L501.5200 #### [facility] [address] [place], [address] Basophils/100 WBC (Bld) 0.6 % Normal 0-[address] [facility] Comment on above: Performed By: #### L 500.2500, L100.0100, L501.5200 #### [facility] [address] [place], [address] Eosinophils/100 WBC (Bld) 2.6 % Normal 0-[address] [facility] Comment on above: Performed By: #### L 500.2500, L100.0100, L501.5200 #### [facility] [address] [place], [address] Erythrocyte distribution width (RBC) [Ratio] 14.0 % Normal 11.6-14.[address] [facility] Comment on above: Performed By: #### L 500.2500, L100.0100, L501.5200 #### [facility] [address] [place], [address] Hematocrit (Bld) [Volume fraction] 34.9 % Low 40-[address] [facility] Comment on above: Performed By: #### L 500.2500, L100.0100, L501.5200 #### [facility] [address] [place], [address] Hemoglobin (Bld) [Mass/Vol] 12.0 g/dL Low 13.0-16.[address] [facility] Comment on above: Performed By: #### L 500.2500, L100.0100, L501.5200 #### [facility] [address] [place], [address] IG% 0.900 Normal 0.0-0.[address] [facility] Comment on above: Result Comment: IG% - Immature Granulocytes (promyelocytes, myelocytes and metamyelocytes) > 1% indicates that a LEFT SHIFT is Present. Performed By: #### L 500.2500, L100.0100, L501.5200 #### [facility] [address] [place], [address] Lymphocytes/100 WBC (Bld) 36.9 % Normal 19-[address] [facility] Comment on above: Performed By: #### L 500.2500, L100.0100, L501.5200 #### [facility] [address] [place], [address] MCH (RBC) [Entitic mass] 30.0 pg Normal 27.0-32.[address] [facility] Comment on above: Performed By: #### L 500.2500, L100.0100, L501.5200 #### [facility] [address] [place], [address] MCHC (RBC) [Mass/Vol] 34.4 g/dL Normal 32-36 [facility] Comment on above: Performed By: #### L 500.2500, L100.0100, L501.5200 #### [facility] [address] [place], [address] MCV (RBC) [Entitic vol] 87.3 fL Normal 80-[address] [facility] Comment on above: Performed By: #### L 500.2500, L100.0100, L501.5200 #### [facility] [address] [place], [address] Monocytes/100 WBC (Bld) 6.1 % Normal 0-[address] [facility] Comment on above: Performed By: #### L 500.2500, L100.0100, L501.5200 #### [facility] [address] [place], [address] Neutrophils/100 WBC (Bld) 52.9 % Normal 47-[address] [facility] Comment on above: Performed By: #### L 500.2500, L100.0100, L501.5200 #### [facility] [address] [place], [address] Nucleated RBC (Bld) [#/Vol] 0 10*3/uL Normal 0-[address] [facility] Comment on above: Performed By: #### L 500.2500, L100.0100, L501.5200 #### [facility] [address] [place], [address] Platelet mean volume (Bld) [Entitic vol] 8.6 fL Normal 6.2-12.[address] [facility] Comment on above: Performed By: #### L 500.2500, L100.0100, L501.5200 #### [facility] [address] [place], [address] Platelets (Bld) [#/Vol] 185 10*3/uL Normal 150-[address] [facility] Comment on above: Performed By: #### L 500.2500, L100.0100, L501.5200 #### [facility] [address] [place], [address] RBC (Bld) [#/Vol] 4.00 10*6/uL Low 4.6-6.2 [facility] Comment on above: Performed By: #### L 500.2500, L100.0100, L501.5200 #### [facility] [address] [place], [address] RDW SD 45.0 fl High 35.1-43.[address] [facility] Comment on above: Performed By: #### L 500.2500, L100.0100, L501.5200 #### [facility] [address] [place], [address] WBC (Bld) [#/Vol] 7.9 10*3/uL Normal 4.4-11.0 [facility] Comment on above: Performed By: #### L 500.2500, L100.0100, L501.5200 #### [facility] [address] [place], [address] Liver Profileon 05-02-2024 Albumin [Mass/Vol] 3.8 g/dL Normal 3.2-5.0 [facility] Comment on above: Performed By: #### L 500.2500, L100.0100, L501.5200 #### [facility] [address] [place], [address] ALK P 49 U/L Normal 45-[address] [facility] Comment on above: Performed By: #### L 500.2500, L100.0100, L501.5200 #### [facility] [address] [place], [address] ALT [Catalytic activity/Vol] 29 U/L Normal 16-[address] [facility] Comment on above: Performed By: #### L 500.2500, L100.0100, L501.5200 #### [facility] [address] [place], [address] AST [Catalytic activity/Vol] 29 U/L Normal 15-[address] [facility] Comment on above: Performed By: #### L 500.2500, L100.0100, L501.5200 #### [facility] [address] [place], [address] Bilirubin [Mass/Vol] 0.30 mg/dL Normal 0.20-1.00 [facility] Comment on above: Result Comment: For patients on eltrombopag therapy, use of Dimension [place] TBIL is not recommended. Performed By: #### L 500.2500, L100.0100, L501.5200 #### [facility] [address] [place], [address] Bilirubin.direct [Mass/Vol] 0.14 mg/dL Normal 0.00-0.[address] [facility] Comment on above: Performed By: #### L 500.2500, L100.0100, L501.5200 #### [facility] [address] [place], [address] Globulin (S) [Mass/Vol] 3.6 g/dL Normal 2.2-4.[address] [facility] Comment on above: Performed By: #### L 500.2500, L100.0100, L501.5200 #### [facility] [address] [place], [address] T PROT 7.4 g/dL Normal 6.4-8.[address] [facility] Comment on above: Performed By: #### L 500.2500, L100.0100, L501.5200 #### [facility] [address] [place], [address] Pelvis 1 or 2 Viewson 2023 Pelvis 1 or 2 Views [facility] Imaging Services [address] [place] [address] Pelvis 1 or 2 Views MR#: [id number] Acct: [id number] Name: WOODY NI Rep #: [id number] : 1960 M 64 From: Beto Urena MD PCP: Dr. Jani Quezada MD Status: REG ER Study: Pelvis 1 or 2 Views Date of Exam: 05/02/24 Exam# [id number] Ordering Dr: Daniel Knapp DO [id number] INDICATION: fall EXAMINATION/TECHNIQUE: X-RAY - XR Pelvis [...] Dr. Jani Quezada MD; Daniel Knapp DO Rope Cleaner: Signed Normal [facility] Spine Cervical without Contr ason 05-02-2024 Spine Cervical without Contras [facility] Imaging Services [address] [place] [address] Spine Cervical without Contras MR#: [id number] Acct: [id number] Name: WOODY NI Rep #: [id number] : 1960 M 64 From: Beto Urena MD PCP: Dr. Jani Quezada MD Status: REG ER Study: Spine Cervical without Contras Date of Exam: 0 05/02/24 Exam# [id number] Ordering Dr: Daniel Knapp DO [id number] INDICATION: fall EXAMINATION: CT CERVICAL SPINE - [...] Signed: Beto Urena MD at 0:18 EDT , CC: Dr. Jani Quezaad MD; Daniel Knapp DO Rope Cleaner: Signed [facility] 05-01-2024 [facility] CARECOORDon 04-30-2024 CARECODOTHAN Normal [facility] IDNon 04-30-2024 IDN Normal [facility] Laboratory - Chemistry and C hemistry - challengeon 04-30-2024 Glucose [Mass/Vol] 134 mg/dL High 70 - 100 mg/dL [facility] Glucose [Mass/Vol] 137 mg/dL High 70 - 100 mg/dL [facility] No Panel Informationon 04-30 Interpretation and review of laboratory results Abnormal [facility]formed by: [facility], [address] [facility] [address] CLIA ID: [id number] [facility] Interpretation and review of laboratory results Abnormal [facility] Performed by: [facility], [address] [facility] [address] CLIA ID: [id number] [facility] Nursing Noteon 04-30-2024 Nursing Note AVS medication list and follow up appointment reviewed with pt. Pt medications sent to Re[facility] Cedeno per his request. Pt states understanding. . [facility] [id number] 04-29-2024 [id number] Pt refusing home car e services. PACC signing off. [facility] [id number] Computer Processing Scheduler following case for Discharge Needs. IF denied SNF placement - will follow for discharge plan for possibly home with home care. [facility] CARECOORDon 04-29-2024 CAR[place]OORD Normal [facility] CARECOORD Normal [facility] CARECOORD Normal [facility] CAR[place]OORD Normal [facility] Laboratory - Chemistry and C hemistry - challengeon 04-29-2024 Glucose [Mass/Vol] 135 mg/dL High 70 - 100 mg/dL [facility] Glucose [Mass/Vol] 115 mg/dL High 70 - 100 mg/dL [facility] Glucose [Mass/Vol] 130 mg/dL High 70 - 100 mg/dL [facility] Glucose [Mass/Vol] 103 mg/dL High 70 - 100 mg/dL [facility] No Panel Informationon 04-29 Interpretation and review of laboratory results Abnormal [facility] Performed by: [facility], [address], [facility] [address] CLIA ID: [id number] [facility] Interpretation and review of laboratory results Abnormal [facility] Performed by: [facility], [address], [facility] [address] CLIA ID: [id number] [facility] Interpretation and review of laboratory results Abnormal [facility] Performed by: [facility], [address], [facility] [address] CLIA ID: [id number] [facility] Interpretation and review of laboratory results Abnormal [facility] Performed by: [facility], [address], [facility] [address] CLIA ID: [id number] [facility] Progress Noteon 04-29-2024 Progress Note Normal [facility] Progress Note Normal [facility] Progress Note Normal [facility] Progress Note Nutrition update completed. Chart reviewed. Patient continues as a level 1 for nutrition care. Normal [facility] Progress Note Normal [facility] CARECOORDon 04-28-2024 CARECOORD Reviewed careport an d continue to await auth. . Normal [facility] CAR[place]ORD Normal [facility] Laboratory - Chemistry and C hemistry - challengeon 04-28-2024 Glucose [Mass/Vol] 106 mg/dL High 70 - 100 mg/dL [facility] Glucose [Mass/Vol] 78 mg/dL 70 - 100 mg/dL [facility] Glucose [Mass/Vol] 96 mg/dL 70 - 100 mg/dL [facility] No Panel Informationon 04-28 Interpretation and review of laboratory results Abnormal [facility] Performed by: Hanna Chambers, [address], [facility] [address] CLIA ID: [id number] [facility] Interpretation and review of laboratory results Normal [facility] Performed by: Hanna [facility], [address] [facility] [address] CLIA ID: [id number] [facility] Interpretation and review of laboratory results Normal [facility] Performed by: [facility], [address] [facility] [address] CLIA ID: [id number] [facility] Progress Noteon 04-28-2024 Progress Note Normal [facility] Progress Note Normal [facility] Progress Note Normal [facility] Progress Note Normal [facility] Progress Note Normal [facility] CARECOORDon 04-27-2024 CAR[place]OORD Normal [facility] CAR[place]OORD Normal [facility] CAR[place]OORD Normal [facility] CARECOORD Sent updated notes lulu Rhodes via [employer] per TCC request. Await review and response regarding ability to accept. TCC notified. Normal [facility] CBC W Auto Differential pane l (Bld)on 04-27-2024 Basophils (Bld) [#/Vol] 0.0 10*3/uL 0.0 - 0.2 10*3/uL [facility] Basophils/100 WBC (Bld) 0.6 % 0.0 - 2.0 % [facility] Eosinophils (Bld) [#/Vol] 0.3 10*3/uL 0.0 - 0.5 10*3/uL [facility] Eosinophils/100 WBC (Bld) 4.7 % 0.0 - 6.0 % [facility] Erythrocyte distribution width (RBC) [Ratio] 13.7 % 11.5 - 15.0 % [facility] Hematocrit (Bld) [Volume fraction] 34.2 % Low 40.0 - 52.0 % [facility] Hemoglobin (Bld) [Mass/Vol] 11.2 g/dL Low 13.0 - 18.0 g/dL [facility] Immature granulocytes (Bld) [#/Vol] 0.1 10*3/uL High NINF - 0.1 10*3/uL [facility] Immature granulocytes/100 WBC (Bld) 0.8 % 0.0 - 2.0 % [facility] Interpretation and review of laboratory results Abnormal [facility] IPF 3 [facility] Lymphocytes (Bld) [#/Vol] 2.5 10*3/uL 1.0 - 4.3 10*3/uL [facility] Lymphocytes/100 WBC (Bld) 38.4 % 15.0 - 45.0 % [facility] MCH (RBC) [Entitic mass] 30.4 pg 26.0 - 34.0 pg [facility] MCHC (RBC) [Mass/Vol] 32.7 % 30.5 - 36.0 % [facility] MCV (RBC) [Entitic vol] 92.9 fL 77.0 - 99.0 fL [facility] Monocytes (Bld) [#/Vol] 0.6 10*3/uL 0.0 - 0.9 10*3/uL [facility] Monocytes/100 WBC (Bld) 8.9 % 5.0 - 13.0 % [facility] Neutrophils (Bld) [#/Vol] 3.0 10*3/uL 1.8 - 7.5 10*3/uL [facility] Neutrophils/100 WBC (Bld) 46.6 % 38.0 - 82.0 % [facility] Nucleated RBC/100 WBC (Bld) [Ratio] 0.0 % [facility] Platelet mean volume (Bld) [Entitic vol] 9.7 fL 9.0 - 12.7 fL [facility] Platelets (Bld) [#/Vol] 105 10*3/uL Low 140 - 440 10*3/uL [facility] RBC (Bld) [#/Vol] 3.68 10*6/uL Low 4.40 - 5.9 0 10*6/uL [facility] WBC (Bld) [#/Vol] 6.4 10*3/uL 3.6 - 10.7 10*3/uL [facility] CBC WITH AUTO DIFFERENTIALon 04-27-2024 Basophils (Bld) [#/Vol] 0.0 10*3/uL Normal 0.0-0.2 [facility] Comment on above: Performed By: #### L [id number] ####Steam Shovel Engineer: TRESSA SANTIZO ([id number])[facility] [place] [address] Basophils/100 WBC (Bld) 0.6 % Normal 0.0-2.0 [facility] Comment on above: Performed By: #### L [id number] ####Steam Shovel Engineer: TRESSA SANTIZO ([id number])[facility] (SBHLAB)[address] Eosinophils (Bld) [#/Vol] 0.3 10*3/uL Normal 0.0-0.5 [facility] Comment on above: Performed By: #### L [id number] ####Steam Shovel Engineer: TRESSA CHRISJAVY ([phone])[facility] ([facility])[address] Eosinophils/100 WBC (Bld) 4.7 % Normal 0.0-6.0 [facility] Comment on above: Performed By: #### L [id number] ####Steam Shovel Engineer: TRESSA CHRISJAVY ([id number])[facility] [place] [facility] Erythrocyte distribution width (RBC) [Ratio] 13.7 % Normal 11.5-15.0 [facility] Comment on above: Performed By: #### L [id number] ####Steam Shovel Engineer: TRESSA CHRISJAVY ([phone])[facility] [place] [facility])[address] Hematocrit (Bld) [Volume fraction] 34.2 % Low 40.0-52.0 [facility] Comment on above: Performed By: #### L [id number] ####Steam Shovel Engineer: TRESSA CHRISJAVY ([id number])[facility] ([facility])[address] Hemoglobin (Bld) [Mass/Vol] 11.2 g/dL Low 13.0-18.0 [facility] Comment on above: Performed By: #### L [id number] ####Steam Shovel Engineer: TRESSA SANTIZO ([phone])[facility] ([facility])[address] IMMATURE GRANS % 0.8 % Normal 0.0-2.0 [facility] Comment on above: Performed By: #### L [id number] ####Steam Shovel Engineer: TRESSA SANTIZO ([id number])[facility] (SB[facility])[address] IMMATURE GRANS ABSOLUTE 0.1 10*3/uL High <0.1 [facility] Comment on above: Performed By: #### L [id number] ####Steam Shovel Engineer: TRESSA SANTIZO ([id number])[facility] (SBHLAB)[address] [place] [address] [place] IPF 3 Normal [facility] Comment on above: Performed By: #### L [id number] ####Steam Shovel Engineer: TRESSA SANTIZO ([id number])[facility] (SBAB)[address] [place] [address] Lymphocytes (Bld) [#/Vol] 2.5 10*3/uL Normal 1.0-4.3 [facility] Comment on above: Performed By: #### L [id number] ####Steam Shovel Engineer: TRESSA SANTIZO ([id number])[facility] ([facility])[address] Lymphocytes/100 WBC (Bld) 38.4 % Normal 15.0-45.0 [facility] Comment on above: Performed By: #### L [id number] ####Steam Shovel Engineer: TRESSA SANTIZO ([id number])[facility] ([facility])[address] MCH (RBC) [Entitic mass] 30.4 pg Normal 26.0-34.0 [facility] Comment on above: Performed By: #### L [id number] ####Steam Shovel Engineer: TRESSA SANTIZO ([id number])[facility] (SBHLAB)[address] [place] [address] MCHC 32.7 % Normal 30.5-36.0 [facility] Comment on above: Performed By: #### L [id number] ####Steam Shovel Engineer: TRESSA SANTIZO ([id number])[facility] (SBHLAB)[address] MCV (RBC) [Entitic vol] 92.9 fL Normal 77.0-99.0 [facility] Comment on above: Performed By: #### L [id number] ####Steam Shovel Engineer: TRESSA SANTIZO ([id number])[facility] [place] (SBHLAB)[address] Monocytes (Bld) [#/Vol] 0.6 10*3/uL Normal 0.0-0.9 [facility] Comment on above: Performed By: #### L [id number] ####Steam Shovel Engineer: TRESSA SANTIZO ([phone])[facility] [place] (SBHLAB)[address] [place] [address] Monocytes/100 WBC (Bld) 8.9 % Normal 5.0-13.0 [facility] Comment on above: Performed By: #### L [id number] ####Steam Shovel Engineer: TRESSA CHRISJAVY ([id number])[facility] [place] (SBHLAB)[address] NEUTROPHILS ABSOLUTE 3.0 10*3/uL Normal 1.8-7.5 [facility] Comment on above: Performed By: #### L [id number] ####Steam Shovel Engineer: TRESSA SANTIZO ([id number])[facility] [place] (SBHLAB)[address] Neutrophils/100 WBC (Bld) 46.6 % Normal 38.0-82.0 [facility] Comment on above: Performed By: #### L [id number] ####Steam Shovel Engineer: TRESSA SANTIZO ([id number])[facility] [place] (SBHLAB)[address] NRBC 0.0 /100 WBCs Normal 0.0-2.0 [facility] Comment on above: Performed By: #### L [id number] ####Steam Shovel Engineer: TRESSARAY SANTIZO ([id number])[facility]ANNA BENITEZTim (SBHLAB)[address] Platelet mean volume (Bld) [Entitic vol] 9.7 fL Normal 9.0-12.7 [facility] Comment on above: Performed By: #### L [id number] ####Steam Shovel Engineer: TRESSARAY SANTIZO ([id number])[facility]ITALOctavia BENITEZN (SBHLAB)[address] Platelets (Bld) [#/Vol] 105 10*3/uL Low 140-440 [facility] Comment on above: Performed By: #### L [id number] ####Steam Shovel Engineer: TRESSARAY SANTIZO ([id number])[facility]ITAL[facility] BENITEZN (SBHLAB)[address] RBC (Bld) [#/Vol] 3.68 10*6/uL Low 4.40-5.90 [facility] Comment on above: Performed By: #### L [id number] ####Steam Shovel Engineer: TRESSA DARLYN ([id number])[facility]ITAL[facility] BENITEZN (SBHLAB)[address] WBC (Bld) [#/Vol] 6.4 10*3/uL Normal 3.6-10.7 [facility] Comment on above: Performed By: #### L [id number] ####Steam Shovel Engineer: TRESSA DARLYN ([id number])[facility]ITAL[facility] POLKTRINITYN (SBHLAB)[address] COMPREHENSIVE METABOLIC PANE Peter 04-27-2024 Albumin [Mass/Vol] 3.9 g/dL Normal 3.5-5.0 [facility] Comment on above: Performed By: #### L [id number] ####Steam Shovel Engineer: TRESSA DARLYN ([id number])[facility]ITAL[facility] POLKTRINITYN (SBHLAB)[address] ALP [Catalytic activity/Vol] 45 U/L Normal 38-126 [facility] Comment on above: Performed By: #### L [id number] ####Steam Shovel Engineer: TRESSA SANTIZO ([id number])[facility] (SBHLAB)[address] ALT [Catalytic activity/Vol] 19 U/L Normal 0-49 [facility] Comment on above: Performed By: #### L [id number] ####Steam Shovel Engineer: TRESSA SANTIZO ([id number])[facility] (SBHLAB)[address] Anion gap [Moles/Vol] 7 mmol/L Normal 3-13 [facility] Comment on above: Performed By: #### L [id number] ####Steam Shovel Engineer: TRESSA SANTIZO ([id number])[facility] [place] (SBHLAB)[address] AST [Catalytic activity/Vol] 29 U/L Normal 15-46 [facility] Comment on above: Performed By: #### L [id number] ####Steam Shovel Engineer: TRESSA SANTIZO ([id number])[facility] (SBHLAB)[address] Bilirubin [Mass/Vol] 0.4 mg/dL Normal 0.2-1.3 [facility] Comment on above: Performed By: #### L [id number] ####Steam Shovel Engineer: TRESSA SANTIZO ([id number])[facility] [place] (SBHLAB)[address] Calcium [Mass/Vol] 9.2 mg/dL Normal 8.4-10.4 [facility] Comment on above: Performed By: #### L [id number] ####Steam Shovel Engineer: TRESSA SANTIZO ([id number])[facility] (SBHLAB)[address] [place] [address] [place] Chloride [Moles/Vol] 100 mmol/L Normal 98-107 [facility] Comment on above: Performed By: #### L [id number] ####Steam Shovel Engineer: TRESSA SANTIZO ([id number])[facility] (SBHLAB)[address] [place] [address] [place] CO2 [Moles/Vol] 25 mmol/L Normal 22-30 [facility] Comment on above: Performed By: #### L [id number] ####Steam Shovel Engineer: TRESSA SANTIZO ([id number])[facility] HERNAN[facility] (SBHLAB)[address] Creatinine [Mass/Vol] 0.85 mg/dL Normal 0.66-1.25 [facility] Comment on above: Performed By: #### L [id number] ####Steam Shovel Engineer: TRESSA SANTIZO ([id number])[facility] HER[facility] (SBHLAB)[address] GLOMERULAR FILTRATION RATE ML/MIN/1.73 SQ M.PREDICTED >90.0 Normal >60.0 [facility] Comment on above: Result Comment: Calc ulation based on the Chronic Kidney Disease Epidemiology Collaboration (CKD-EPI) equation refit without adjustment for raceORDER COMMENTS:Slightly Hemolyzed Performed By: #### L [id number] ####Steam Shovel Engineer: TRESSA SANTIZO ([id number])[facility]ITAL[facility] BENITEZTim (SBHLAB)[address] Glucose [Mass/Vol] 73 mg/dL Normal 70-100 [facility] Comment on above: Performed By: #### L [id number] ####Steam Shovel Engineer: TRESSA SANTIZO ([id number])[facility]ITAL[facility] BENITEZTim (SBHLAB)[address] [place] [address] [place] Potassium [Moles/Vol] 4.1 mmol/L Normal 3.5-5.1 [facility] Comment on above: Performed By: #### L [id number] ####Steam Shovel Engineer: TRESSA SANTIZO ([id number])[facility] BENITEZTim (SBHLAB)[address] Protein [Mass/Vol] 6.7 g/dL Normal 6.3-8.2 [facility] Comment on above: Performed By: #### L [id number] ####Steam Shovel Engineer: TRESSA SANTIZO ([id number])[facility] HER[facility] (SBHLAB)[address] Sodium [Moles/Vol] 132 mmol/L Low 135-145 [facility] Comment on above: Performed By: #### L [id number] ####Steam Shovel Engineer: TRESSA SANTIZO ([id number])[facility] (SBHLAB)[address] Urea nitrogen [Mass/Vol] 9 mg/dL Normal 9-20 [facility] Comment on above: Performed By: #### L [id number] ####Steam Shovel Engineer: TRESSA SANTIZO ([id number])[facility] (SBHLAB)[address] Comprehensive metabolic 1998 panelon 04-27-2024 Albumin [Mass/Vol] 3.9 g/dL 3.5 - 5.0 g/dL [facility] ALP [Catalytic activity/Vol] 45 U/L 38 - 126 U/L [facility] ALT [Catalytic activity/Vol] 19 U/L 0 - 49 U/L [facility] Anion gap [Moles/Vol] 7 mmol/L 3 - 13 mmol/L [facility] AST [Catalytic activity/Vol] 29 U/L 15 - 46 U/L [facility] Bilirubin [Mass/Vol] 0.4 mg/dL 0.2 - 1 .3 mg/dL [facility] Calcium [Mass/Vol] 9.2 mg/dL 8.4 - 10. 4 mg/dL [facility] Chloride [Moles/Vol] 100 mmol/L 98 - 10 7 mmol/L [facility] CO2 [Moles/Vol] 25 mmol/L 22 - 30 mmol/L [facility] Creatinine [Mass/Vol] 0.85 mg/dL 0.66 - 1.25 mg/dL [facility] GFR/1.73 sq M.predicted MDRD (S/P/Bld) [Vol rate/Area] - PINF [facility] Comment on above: Calculation based on the Chronic Kidney Disease Epidemiology Collaboration (CKD-EPI) equation refit without adjustment for race Glucose [Mass/Vol] 73 mg/dL 70 - 100 mg/dL [facility] Interpretation and review of laboratory results Abnormal [facility] Potassium [Moles/Vol] 4.1 mmol/L 3.5 - 5.1 mmol/L [facility] Protein [Mass/Vol] 6.7 g/dL 6.3 - 8.2 g/dL [facility] Sodium [Moles/Vol] 132 mmol/L Low 135 - 145 mmol/L [facility] Urea nitrogen [Mass/Vol] 9 mg/dL 9 - 20 mg/dL [facility] Slightly Hemolyzed [facility] - Chemistry and C hemistry - challengeon 04-27-2024 Glucose [Mass/Vol] 107 mg/dL High 70 - 100 mg/dL [facility] Glucose [Mass/Vol] 111 mg/dL High 70 - 100 mg/dL [facility] Glucose [Mass/Vol] 110 mg/dL High 70 - 100 mg/dL [facility] Glucose [Mass/Vol] 76 mg/dL 70 - 100 mg/dL [facility] No Panel Informationon 04-27 Interpretation and review of laboratory results Abnormal [facility] Performed by: [facility], [address] [place] [address] CLIA ID: [id number] [facility] Interpretation and review of laboratory results Abnormal [facility] Performed by: [facility], [address] [place] [address] CLIA ID: [id number] [facility] Interpretation and review of laboratory results Abnormal [facility] Performed by: [facility], [address] [place] [address] CLIA ID: [id number] [facility] Interpretation and review of laboratory results Normal [facility] Performed by: [facility], [address] [place] [address] CLIA ID: [id number] [facility] Progress Noteon 04-27-2024 Progress Note Normal [facility] Progress Note Normal [facility] Progress Note Normal [facility] Progress Note Normal [facility] CARECOORDon 04-26-2024 CARECO[facility] unable to accept. [facility] able to accept and pt agreeable. Anticipate starting auth 04/27 Normal [facility] [place] Normal [facility] CAR[place] Normal [facility] CBC W Auto Differential pane l (Bld)on 04-26-2024 Basophils (Bld) [#/Vol] 0.0 10*3/uL 0.0 - 0.2 10*3/uL [facility] Basophils/100 WBC (Bld) 0.5 % 0.0 - 2.0 % [facility] Eosinophils (Bld) [#/Vol] 0.2 10*3/uL 0.0 - 0.5 10*3/uL [facility] Eosinophils/100 WBC (Bld) 3.5 % 0.0 - 6.0 % [facility] Erythrocyte distribution width (RBC) [Ratio] 13.9 % 11.5 - 15.0 % [facility] Hematocrit (Bld) [Volume fraction] 34.3 % Low 40.0 - 52.0 % [facility] Hemoglobin (Bld) [Mass/Vol] 11.3 g/dL Low 13.0 - 18.0 g/dL [facility] Immature granulocytes (Bld) [#/Vol] 0.0 10*3/uL NINF - 0.1 10*3/uL [facility] Immature granulocytes/100 WBC (Bld) 0.7 % 0.0 - 2.0 % [facility] Interpretation and review of laboratory results Abnormal [facility] Lymphocytes (Bld) [#/Vol] 1.7 10*3/uL 1.0 - 4.3 10*3/uL [facility] Lymphocytes/100 WBC (Bld) 27.8 % 15.0 - 45.0 % [facility] MCH (RBC) [Entitic mass] 30.1 pg 26.0 - 34.0 pg [facility] MCHC (RBC) [Mass/Vol] 32.9 % 30.5 - 36.0 % [facility] MCV (RBC) [Entitic vol] 91.5 fL 77.0 - 99.0 fL [facility] Monocytes (Bld) [#/Vol] 0.5 10*3/uL 0.0 - 0.9 10*3/uL [facility] Monocytes/100 WBC (Bld) 7.4 % 5.0 - 13.0 % [facility] Neutrophils (Bld) [#/Vol] 3.6 10*3/uL 1.8 - 7.5 10*3/uL [facility] Neutrophils/100 WBC (Bld) 60.1 % 38.0 - 82.0 % [facility] Nucleated RBC/100 WBC (Bld) [Ratio] 0.0 % [facility] Platelet mean volume (Bld) [Entitic vol] 9.3 fL 9.0 - 12.7 fL [facility] Platelets (Bld) [#/Vol] 123 10*3/uL Low 140 - 440 10*3/uL [facility] RBC (Bld) [#/Vol] 3.75 10*6/uL Low 4.40 - 5.9 0 10*6/uL [facility] WBC (Bld) [#/Vol] 6.1 10*3/uL 3.6 - 10.7 10*3/uL [facility] CBC WITH AUTO DIFFERENTIALon 04-26-2024 Basophils (Bld) [#/Vol] 0.0 10*3/uL Normal 0.0-0.2 [facility] Comment on above: Performed By: #### L [id number] ####Steam Shovel Engineer: TRESSA SANTIZO ([phone])[facility] ([facility] Basophils/100 WBC (Bld) 0.5 % Normal 0.0-2.0 [facility] Comment on above: Performed By: #### L [id number] ####Steam Shovel Engineer: TRESSA SANTIZO ([phone])[facility] ([facility])[address] [place] [address] [place] Eosinophils (Bld) [#/Vol] 0.2 10*3/uL Normal 0.0-0.5 [facility] Comment on above: Performed By: #### L [id number] ####Steam Shovel Engineer: TRESSA SANTIZO ([phone])[facility] (SBHLAB)[address] [place] [address] [place] Eosinophils/100 WBC (Bld) 3.5 % Normal 0.0-6.0 [facility] Comment on above: Performed By: #### L [id number] ####Steam Shovel Engineer: TRESSA SANTIZO ([phone])[facility]ITALOctavia [facility] ([facility])[address] [place] [address] Erythrocyte distribution width (RBC) [Ratio] 13.9 % Normal 11.5-15.0 [facility] Comment on above: Performed By: #### L [id number] ####Steam Shovel Engineer: TRESSA SANTIZO ([phone])[facility] ([facility])[address] [place] [address] Hematocrit (Bld) [Volume fraction] 34.3 % Low 40.0-52.0 [facility] Comment on above: Performed By: #### L [id number] ####Steam Shovel Engineer: TRESSA SANTIZO ([phone])[facility] ([facility])[address] [place] [address] Hemoglobin (Bld) [Mass/Vol] 11.3 g/dL Low 13.0-18.0 [facility] Comment on above: Performed By: #### L [id number] ####Steam Shovel Engineer: TRESSA SANTIZO ([phone])[facility] ([facility])[address] [place] [address] IMMATURE GRANS % 0.7 % Normal 0.0-2.0 [facility] Comment on above: Performed By: #### L [id number] ####Steam Shovel Engineer: TRESSA SANTIZO ([phone])[facility] ([facility])[address] [place] [address] IMMATURE GRANS ABSOLUTE 0.0 10*3/uL Normal <0.1 [facility] Comment on above: Performed By: #### L [id number] ####Steam Shovel Engineer: TRESSA SANTIZO ([phone])[facility] ([facility])[address] [place] [address] Lymphocytes (Bld) [#/Vol] 1.7 10*3/uL Normal 1.0-4.3 [facility] Comment on above: Performed By: #### L [id number] ####Steam Shovel Engineer: TRESSA SANTIZO ([phone])[facility]ITALA [facility] (SBHLAB)[address] Lymphocytes/100 WBC (Bld) 27.8 % Normal 15.0-45.0 [facility] Comment on above: Performed By: #### L [id number] ####Steam Shovel Engineer: TRESSA SANTIZO ([phone])[facility]A [facility] (SBHLAB)[address] MCH (RBC) [Entitic mass] 30.1 pg Normal 26.0-34.0 [facility] Comment on above: Performed By: #### L [id number] ####Steam Shovel Engineer: TRESSA SANTIZO ([phone])[facility] (SBHLAB)[address] MCHC 32.9 % Normal 30.5-36.0 [facility] Comment on above: Performed By: #### L [id number] ####Steam Shovel Engineer: TRESSA SANTIZO ([phone])[facility] HOS[facility]ITALOctavia [facility] (SBHLAB)[address] MCV (RBC) [Entitic vol] 91.5 fL Normal 77.0-99.0 [facility] Comment on above: Performed By: #### L [id number] ####Steam Shovel Engineer: TRESSA SANTIZO ([phone])[facility] (SBHLAB)[address] [place] [address] Monocytes (Bld) [#/Vol] 0.5 10*3/uL Normal 0.0-0.9 [facility] Comment on above: Performed By: #### L [id number] ####Steam Shovel Engineer: TRESSA SANTIZO ([phone])[facility] ([facility])[address] Monocytes/100 WBC (Bld) 7.4 % Normal 5.0-13.0 [facility] Comment on above: Performed By: #### L [id number] ####Steam Shovel Engineer: TRESSA SANTIZO ([id number])[facility] (SBHLAB)[address] NEUTROPHILS ABSOLUTE 3.6 10*3/uL Normal 1.8-7.5 [facility] Comment on above: Performed By: #### L [id number] ####Steam Shovel Engineer: TRESSA SANTIZO ([phone])[facility] (SBHLAB)[address] Neutrophils/100 WBC (Bld) 60.1 % Normal 38.0-82.0 [facility] Comment on above: Performed By: #### L [id number] ####Steam Shovel Engineer: TRESSA SANTIZO ([phone])[facility]A [place] (SBHLAB)[address] NRBC 0.0 /100 WBCs Normal 0.0-2.0 [facility] Comment on above: Performed By: #### L [id number] ####Steam Shovel Engineer: TRESSA SANTIZO ([phone])[facility]A [place] (SBHLAB)[address] Platelet mean volume (Bld) [Entitic vol] 9.3 fL Normal 9.0-12.7 [facility] Comment on above: Performed By: #### L [id number] ####Steam Shovel Engineer: TRESSA SANTIZO ([phone])[facility] (SBHLAB)[address] [place] [address] [place] Platelets (Bld) [#/Vol] 123 10*3/uL Low 140-440 [facility] Comment on above: Performed By: #### L [id number] ####Steam Shovel Engineer: TRESSA SANTIZO ([phone])[facility]A [place] (SBHLAB)[address] [place] [address] [place] RBC (Bld) [#/Vol] 3.75 10*6/uL Low 4.40-5.90 [facility] Comment on above: Performed By: #### L [id number] ####Steam Shovel Engineer: TRESSA SANTIZO ([phone])[facility] (SBHLAB)[address] [place], [place] [id number] [place] [address] WBC (Bld) [#/Vol] 6.1 10*3/uL Normal 3.6-10.7 [facility] Comment on above: Performed By: #### L [id number] ####Steam Shovel Engineer: TRESSA SANTIZO ([phone])[facility] (SBHLAB)[address] [place] [address] [place] IDNon 04-26-2024 IDN Normal [facility] IDN Normal [facility] Laboratory - Chemistry and C hemistry - challengeon 04-26-2024 Glucose [Mass/Vol] 102 mg/dL High 70 - 100 mg/dL [facility] Glucose [Mass/Vol] 91 mg/dL 70 - 100 mg/dL [facility] Glucose [Mass/Vol] 107 mg/dL High 70 - 100 mg/dL [facility] Glucose [Mass/Vol] 99 mg/dL 70 - 100 mg/dL [facility] No Panel Informationon 04-26 Interpretation and review of laboratory results Abnormal [facility] Performed by: [facility], [address] [place] [address] CLIA ID: [id number] [facility] Interpretation and review of laboratory results Normal [facility] Performed by: [facility], [address] [place] [address] CLIA ID: [id number] [facility] Interpretation and review of laboratory results Abnormal [facility] Performed by: [facility], [address] [place] [address]85 CLIA ID: [id number] [facility] Interpretation and review of laboratory results Normal [facility] Performed by: [facility], [address] [place] [address] CLIA ID: [id number] [facility] Nursing Noteon 04-26-2024 Nursing Note Normal [facility] Progress Noteon 04-26-2024 Progress Note Normal [facility] Progress Note Normal [facility] Progress Note Normal [facility] Progress Note Normal [facility] BASIC METABOLIC PANELon Anion gap [Moles/Vol] 6 mmol/L Normal 3-13 [facility] Comment on above: Performed By: #### L [id number] ####Steam Shovel Engineer: TRESSA SANTIZO ([phone])[facility] (SBHLAB)[address] Calcium [Mass/Vol] 9.2 mg/dL Normal 8.4-10.4 [facility] Comment on above: Performed By: #### L [id number] ####Steam Shovel Engineer: TRESSA SANTIZO ([phone])[facility]A [place] (SBHLAB)[address] Chloride [Moles/Vol] 100 mmol/L Normal 98-107 [facility] Comment on above: Performed By: #### L [id number] ####Steam Shovel Engineer: TRESSA SANTIZO ([phone])[facility] (SBHLAB)[address] CO2 [Moles/Vol] 25 mmol/L Normal 22-30 [facility] Comment on above: Performed By: #### L [id number] ####Steam Shovel Engineer: TRESSA SANTIZO ([phone])[facility] (SBHLAB)[address] Creatinine [Mass/Vol] 0.89 mg/dL Normal 0.66-1.25 [facility] Comment on above: Performed By: #### L [id number] ####Steam Shovel Engineer: TRESSA SANTIZO ([id number])[facility]ITALA [place] (SBHLAB)[address] GLOMERULAR FILTRATION RATE ML/MIN/1.73 SQ M.PREDICTED >90.0 Normal >60.0 [facility] Comment on above: Result Comment: Calc ulation based on the Chronic Kidney Disease Epidemiology Collaboration (CKD-EPI) equation refit without adjustment for race Performed By: #### L [id number] ####Steam Shovel Engineer: TRESSA SANTIZO ([phone])[facility] (SBHLAB)[address] Glucose [Mass/Vol] 114 mg/dL High 70-100 [facility] Comment on above: Performed By: #### L [id number] ####Steam Shovel Engineer: TRESSA SANTIZO ([id number])[facility] HOSPITALOctavia [facility]N (SBHLAB)[address] Potassium [Moles/Vol] 4.0 mmol/L Normal 3.5-5.1 [facility] Comment on above: Performed By: #### L [id number] ####Steam Shovel Engineer: TRESSA SANTIZO ([phone])[facility]OS[facility]ITALOctavia [facility] (SBHLAB)[address] Sodium [Moles/Vol] 131 mmol/L Low 135-145 [facility] Comment on above: Performed By: #### L [id number] ####Steam Shovel Engineer: TRESSA SANTIZO ([phone])[facility] (SBHLAB)[address] Urea nitrogen [Mass/Vol] 10 mg/dL Normal 9-20 [facility] Comment on above: Performed By: #### L [id number] ####Steam Shovel Engineer: TRESSA SANTIZO ([phone])[facility] ([facility])[address] Basic metabolic 1998 panelon 04-25-2024 Anion gap [Moles/Vol] 6 mmol/L 3 - 13 mmol/L [facility] Calcium [Mass/Vol] 9.2 mg/dL 8.4 - 10. 4 mg/dL [facility] Chloride [Moles/Vol] 100 mmol/L 98 - 10 7 mmol/L [facility] CO2 [Moles/Vol] 25 mmol/L 22 - 30 mmol/L [facility] Creatinine [Mass/Vol] 0.89 mg/dL 0.66 - 1.25 mg/dL [facility] GFR/1.73 sq M.predicted MDRD (S/P/Bld) [Vol rate/Area] - PINF [facility] Comment on above: Calculation based on the Chronic Kidney Disease Epidemiology Collaboration (CKD-EPI) equation refit without adjustment for race Glucose [Mass/Vol] 114 mg/dL High 70 - 100 mg/dL [facility] Interpretation and review of laboratory results Abnormal [facility] Potassium [Moles/Vol] 4.0 mmol/L 3.5 - 5.1 mmol/L [facility] Sodium [Moles/Vol] 131 mmol/L Low 135 - 145 mmol/L [facility] Urea nitrogen [Mass/Vol] 10 mg/dL 9 - 20 mg/dL [facility] CARECOORDon 04-25-2024 CARECOORD Normal [facility] CBC W Auto Differential pane l (Bld)Ordered By: Philip Medrano on 04-25-2024 Erythrocyte distribution width (RBC) [Ratio] 14.1 % 11.5 - 15.0 % [facility] Hematocrit (Bld) [Volume fraction] 35.6 % Low 40.0 - 52.0 % [facility] Hemoglobin (Bld) [Mass/Vol] 11.7 g/dL Low 13.0 - 18.0 g/dL [facility] Interpretation and review of laboratory results Abnormal [facility] MCH (RBC) [Entitic mass] 30.2 pg 26.0 - 34.0 pg [facility] MCHC (RBC) [Mass/Vol] 32.9 % 30.5 - 36.0 % [facility] MCV (RBC) [Entitic vol] 91.8 fL 77.0 - 99.0 fL [facility] Platelet mean volume (Bld) [Entitic vol] 8.7 fL Low 9.0 - 12.7 fL [facility] Platelets (Bld) [#/Vol] 127 10*3/uL Low 140 - 440 10*3/uL [facility] RBC (Bld) [#/Vol] 3.88 10*6/uL Low 4.40 - 5.9 0 10*6/uL [facility] WBC (Bld) [#/Vol] 8.4 10*3/uL 3.6 - 10.7 10*3/uL [facility] CBC WITH AUTO DIFFERENTIALon 04-25-2024 Erythrocyte distribution width (RBC) [Ratio] 14.1 % Normal 11.5-15.0 [facility] Comment on above: Performed By: #### L [id number], [id number] ####Steam Shovel Engineer: TRESSA SANTIZO ([id number])[facility] (SBHLAB)[address] Hematocrit (Bld) [Volume fraction] 35.6 % Low 40.0-52.0 [facility] Comment on above: Performed By: #### L [id number], [id number] ####Steam Shovel Engineer: TRESSA SANTIZO ([id number])[facility] (SBHLAB)[address] Hemoglobin (Bld) [Mass/Vol] 11.7 g/dL Low 13.0-18.0 [facility] Comment on above: Performed By: #### L [id number], [id number] ####Steam Shovel Engineer: TRESSA SANTIZO ([phone])[facility] ([facility])[address] MCH (RBC) [Entitic mass] 30.2 pg Normal 26.0-34.0 [facility] Comment on above: Performed By: #### L [id number], [id number] ####Steam Shovel Engineer: TRESSA SANTIZO ([phone])[facility] ([facility])[address] [place] [address] MCHC 32.9 % Normal 30.5-36.0 [facility] Comment on above: Performed By: #### L [id number], [id number] ####Steam Shovel Engineer: TRESSA SANTIZO ([phone])[facility] ([facility])[address] [place] [address] MCV (RBC) [Entitic vol] 91.8 fL Normal 77.0-99.0 [facility] Comment on above: Performed By: #### L [id number], [id number] ####Steam Shovel Engineer: TRESSA SANTIZO ([phone])[facility] ([facility])[address] Platelet mean volume (Bld) [Entitic vol] 8.7 fL Low 9.0-12.7 [facility] Comment on above: Performed By: #### L [id number], [id number] ####Steam Shovel Engineer: TRESSA SANTIZO ([id number])[facility]ITALOctavia [facility] (SBHLAB)[address] Platelets (Bld) [#/Vol] 127 10*3/uL Low 140-440 [facility] Comment on above: Performed By: #### L [id number], [id number] ####Steam Shovel Engineer: TRESSA SANTIZO ([phone])[facility] HOSPITALOctavia [facility]N (SBHLAB)[address] RBC (Bld) [#/Vol] 3.88 10*6/uL Low 4.40-5.90 [facility] Comment on above: Performed By: #### L [id number], [id number] ####Steam Shovel Engineer: TRESSA SANTIZO ([phone])[facility]OS[facility]ITALOctavia [facility] (SBHLAB)[address] [place] [address] WBC (Bld) [#/Vol] 8.4 10*3/uL Normal 3.6-10.7 [facility] Comment on above: Performed By: #### L [id number], [id number] ####Steam Shovel Engineer: TRESSA SANTIZO ([phone])[facility] HOS[facility]ITALOctavia [facility] (SBHLAB)[address] [place] [address] Consulton 04-25-2024 Consult Normal [facility] Consult Normal [facility] IDNon 04-25-2024 IDN Normal [facility] Laboratory - Chemistry and C hemistry - challengeon 04-25-2024 Glucose [Mass/Vol] 105 mg/dL High 70 - 100 mg/dL [facility] Glucose [Mass/Vol] 128 mg/dL High 70 - 100 mg/dL [facility] Glucose [Mass/Vol] 104 mg/dL High 70 - 100 mg/dL [facility] Glucose [Mass/Vol] 110 mg/dL High 70 - 100 mg/dL [facility] Laboratory - Hematology and Cell countson 04-25-2024 Band form neutrophils (Bld) [#/Vol] 0.6 10*3/uL High NINF - 0.0 10*3/uL [facility] Band form neutrophils/100 WBC (Bld) 7 % High NINF - 0 % [facility] Eosinophils (Bld) [#/Vol] 0.2 10*3/uL 0.0 - 0.5 10*3/uL [facility] Eosinophils/100 WBC (Bld) 2 % 0 - 6 % [facility] Lymphocytes (Bld) [#/Vol] 0.2 10*3/uL Low 1.0 - 4.3 10*3/uL [facility] Lymphocytes/100 WBC (Bld) 2 % Low 15 - 45 % [facility] Monocytes (Bld) [#/Vol] 0.1 10*3/uL 0.0 - 0.9 10*3/uL [facility] Monocytes/100 WBC (Bld) 1 % Low 5 - 13 % [facility] Neutrophils (Bld) [#/Vol] 8.0 10*3/uL High 1.8 - 7.5 10*3/uL [facility] RBC morphology finding Nom (Bld) Normal [facility] Segmented neutrophils/100 WBC (Bld) 88 % High 38 - 82 % [facility] MANUAL DIFFERENTIAL (CELLAVI ILIANA)on 04-25-2024 BAND NEUTROPHILS TOTAL PER COUNTED LEUKOCYTES BY MANUAL COUNT 7 Normal [facility] Comment on above: Performed By: #### L [id number], [id number] ####Steam Shovel Engineer: TRESSA SANTIZO ([phone])[facility] ([facility])[address] [place] [address] BANDS (10*3/UL) IN BLOOD-CELLAVISION 0.6 10*3/uL High <=0.0 [facility] Comment on above: Performed By: #### L [id number], [id number] ####Steam Shovel Engineer: TRESSA SANTIZO ([phone])[facility]ITALA [facility] (SBHLAB)[address] [place] [address] [place] BASOPHILS TOTAL PER COUNTED LEUKOCYTES BY MANUAL COUNT Normal [facility] Comment on above: Performed By: #### L [id number], [id number] ####Steam Shovel Engineer: TRESSA SANTIZO ([phone])[facility] (SBAB)[address] [place] [address] [place] BLASTS TOTAL PER COUNTED LEUKOCYTES BY MANUAL COUNT Normal [facility] Comment on above: Performed By: #### L [id number], [id number] ####Steam Shovel Engineer: TRESSA SANTIZO ([phone])[facility]ITALA [place] (SBHLAB)[address] [place] [address] [place] EOSINOPHILS (10*3/UL) IN BLOOD-CELLAVISION 0.2 10*3/uL Normal 0.0-0.5 [facility] Comment on above: Performed By: #### L [id number], [id number] ####Steam Shovel Engineer: TRESSA SANTIZO ([phone])[facility]ITAL[facility] [place] (SBHLAB)[address] [place] [address] [place] EOSINOPHILS TOTAL PER COUNTED LEUKOCYTES BY MANUAL COUNT 2 High 0-1 [facility] Comment on above: Performed By: #### L [id number], [id number] ####Steam Shovel Engineer: TRESSA SANTIZO ([phone])[facility] [place] (SBHLAB)[address] [place] [address] [place] EOSINOPHILS/100 LEUKOCYTES IN BLOOD-CELLAVISION 2 % Normal 0-6 [facility] Comment on above: Performed By: #### L [id number], [id number] ####Steam Shovel Engineer: TRESSA SANTIZO ([phone])[facility]A [facility] (SBHLAB)[address] [place] [address] [place] LYMPHOCYTES (10*3/UL) IN BLOOD-CELLAVISION 0.2 10*3/uL Low 1.0-4.3 [facility] Comment on above: Performed By: #### L [id number], [id number] ####Steam Shovel Engineer: TRESSA SANTIZO ([phone])[facility]A [place] (SBHLAB)[address] [place] [address] [place] LYMPHOCYTES TOTAL PER COUNTED LEUKOCYTES BY MANUAL COUNT 2 Normal [facility] Comment on above: Performed By: #### L [id number], [id number] ####Steam Shovel Engineer: TRESSA SANTIZO ([phone])[facility] (SBHLAB)[address] [place] [address] [place] LYMPHOCYTES/100 LEUKOCYTES IN BLOOD-CELLAVISION 2 % Low 15-45 [facility] Comment on above: Performed By: #### L [id number], [id number] ####Steam Shovel Engineer: TRESSA SANTIZO ([phone])[facility] (SBHLAB)[address] [place] [address] [place] METAMYELOCYTES TOTAL PER COUNTED LEUKOCYTES BY MANUAL COUNT Normal [facility] Comment on above: Performed By: #### L [id number], [id number] ####Steam Shovel Engineer: TRESSA SANTIZO ([id number])[facility] [place] (SBHLAB)[address] [place] [address] [place] MONOCYTES (10*3/UL) IN BLOOD-CELLAVISION 0.1 10*3/uL Normal 0.0-0.9 [facility] Comment on above: Performed By: #### L [id number], [id number] ####Steam Shovel Engineer: TRESSA SANTIZO ([id number])[facility] [place] (SBHLAB)[address] [place] [address] [place] MONOCYTES TOTAL PER COUNTED LEUKOCYTES BY MANUAL COUNT 1 Normal [facility] Comment on above: Performed By: #### L [id number], [id number] ####Steam Shovel Engineer: TRESSA SANTIZO ([id number])[facility] (SBHLAB)[address] [place] [address] [place] MONOCYTES/100 LEUKOCYTES IN BLOOD-JOSE 1 % Low 5-13 [facility] Comment on above: Performed By: #### L [id number], [id number] ####Steam Shovel Engineer: TRESSA SANTIZO ([phone])[facility] [place] (SBHLAB)[address] [place] [address] [place] MYELOCYTES COUNTED BY MANUAL COUNT Normal [facility] Comment on above: Performed By: #### L [id number], [id number] ####Steam Shovel Engineer: TRESSA SANTIZO ([id number])[facility] (SBHLAB)[address] [place] [address] [place] NEUTROPHILS BAND FORM/100 LEUKOCYTES IN BLOOD-CELLAVISI 7 % High <=0 [facility] Comment on above: Performed By: #### L [id number], [id number] ####Steam Shovel Engineer: TRESSA CHRISJAVY ([phone])[facility] (SBHLAB)[address] [place] [address] [place] NEUTROPHILS TOTAL PER COUNTED LEUKOCYTES BY MANUAL COUNT 88 Normal [facility] Comment on above: Performed By: #### L [id number], [id number] ####Steam Shovel Engineer: TRESSA CHRISJAVY ([id number])[facility] [place] (SBHLAB)[address] [place] [address] [place] PROMYELOCYTES TOTAL PER COUNTED LEUKOCYTES BY MANUAL COUNT Normal [facility] Comment on above: Performed By: #### L [id number], [id number] ####Steam Shovel Engineer: TRESSA SANTIZO ([phone])[facility] [place] (SBHLAB)[address] [place] [address] [place] RBC MORPHOLOGY IN BLOOD Normal Normal [facility] Comment on above: Performed By: #### L [id number], [id number] ####Steam Shovel Engineer: TRESSA CHRISJAVY ([phone])[facility] [place] (SBHLAB)[address] [place] [address] [place] SEGMENTED NEUTROPHILS (10*3/UL) IN BLOOD-CELLAVISION 8.0 10*3/uL High 1.8-7.5 [facility] Comment on above: Performed By: #### L [id number], [id number] ####Steam Shovel Engineer: TRESSA SANTIZO ([phone])[facility] [place] (SBHLAB)[address] [place] [address] [place] SEGMENTED NEUTROPHILS/100 LEUKOCYTES-CE 88 % High 38-82 [facility] Comment on above: Performed By: #### L [id number], [id number] ####Steam Shovel Engineer: TRESSA SANTIZO ([id number])[facility] [place] ([facility])[address] [place] [address] [place] UNCLASSIFIED CELLS TOTAL PER COUNTED LEUKOCYTES BY MANUAL COUNT Normal [facility] Comment on above: Performed By: #### L [id number], [id number] ####Steam Shovel Engineer: TRESSA SANTIZO ([id number])[facility] ([facility])[address] [place] [address] VARIANT LYMPHOCYTES TOTAL PER COUNTED LEUKOCYTES BY MANUAL COUNT Normal [facility] Comment on above: Performed By: #### L [id number], [id number] ####Steam Shovel Engineer: TRESSA SANTIZO ([id number])[facility] ([facility])[address] [place] [address] No Panel Informationon 04-25 Interpretation and review of laboratory results Abnormal [facility] Performed by: [facility], [address] [place] [id number] CLIA ID: [id number] [facility] Interpretation and review of laboratory results Abnormal [facility] Performed by: [facility], [address] [place] [address] CLIA ID: [id number] [facility] Interpretation and review of laboratory results Abnormal [facility] Performed by: [facility], [address] [place] [address] CLIA ID: [id number] [facility] Interpretation and review of laboratory results Abnormal [facility] Performed by: [facility], [address] [place] [address] CLIA ID: [id number] [facility] Atypical Lymphocytes Manual [facility] Bands Manual 7 [facility] Basophils Manual [facility] Blasts Manual [facility] Eosinophils Manual 2 High 0 - 1 [facility] Interpretation and review of laboratory results Abnormal [facility] Lymphocytes Manual 2 [facility] Metamyelocytes Manual [facility] Monocytes Manual 1 [facility] Myelocytes Manual [facility] Neutrophils Manual 88 [facility] Promyelocytes Manual [facility] Unclassified Cells, Manual [facility] Nursing Noteon 04-25-2024 Nursing Note Normal [facility] Progress Noteon 04-25-2024 Progress Note Normal [facility] Progress Note Normal [facility] Progress Note Normal [facility] Progress Note Pt had a couple epis odes of emesis- yellow and undigested food. Zofran given and vitals assessed. Pt expresses that this is common for him to have emesis like this. Pt reported feeling better after IV Zofran was given. Normal [facility] CARECOORDon 04-24-2024 CARECOORD Normal [facility] CBC W Auto Differential pane l (Bld)Ordered By: Michael Quinn on 04-24-2024 Basophils (Bld) [#/Vol] 0.0 10*3/uL 0.0 - 0.2 10*3/uL [facility] Basophils/100 WBC (Bld) 0.9 % 0.0 - 2.0 % [facility] Eosinophils (Bld) [#/Vol] 0.1 10*3/uL 0.0 - 0.5 10*3/uL [facility] Eosinophils/100 WBC (Bld) 2.2 % 0.0 - 6.0 % [facility] Erythrocyte distribution width (RBC) [Ratio] 14.2 % 11.5 - 15.0 % [facility] Hematocrit (Bld) [Volume fraction] 33.1 % Low 40.0 - 52.0 % [facility] Hemoglobin (Bld) [Mass/Vol] 10.9 g/dL Low 13.0 - 18.0 g/dL [facility] Immature granulocytes (Bld) [#/Vol] 0.0 10*3/uL NINF - 0.1 10*3/uL [facility] Immature granulocytes/100 WBC (Bld) 0.2 % 0.0 - 2.0 % [facility] Interpretation and review of laboratory results Abnormal [facility] Lymphocytes (Bld) [#/Vol] 1.4 10*3/uL 1.0 - 4.3 10*3/uL [facility] Lymphocytes/100 WBC (Bld) 30.3 % 15.0 - 45.0 % [facility] MCH (RBC) [Entitic mass] 30.1 pg 26.0 - 34.0 pg [facility] MCHC (RBC) [Mass/Vol] 32.9 % 30.5 - 36.0 % [facility] MCV (RBC) [Entitic vol] 91.4 fL 77.0 - 99.0 fL [facility] Monocytes (Bld) [#/Vol] 0.3 10*3/uL 0.0 - 0.9 10*3/uL [facility] Monocytes/100 WBC (Bld) 7.6 % 5.0 - 13.0 % [facility] Neutrophils (Bld) [#/Vol] 2.6 10*3/uL 1.8 - 7.5 10*3/uL [facility] Neutrophils/100 WBC (Bld) 58.8 % 38.0 - 82.0 % [facility] Nucleated RBC/100 WBC (Bld) [Ratio] 0.0 % [facility] Platelet mean volume (Bld) [Entitic vol] 8.7 fL Low 9.0 - 12.7 fL [facility] Platelets (Bld) [#/Vol] 137 10*3/uL Low 140 - 440 10*3/uL [facility] RBC (Bld) [#/Vol] 3.62 10*6/uL Low 4.40 - 5.9 0 10*6/uL [facility] WBC (Bld) [#/Vol] 4.5 10*3/uL 3.6 - 10.7 10*3/uL [facility] CBC WITH AUTO DIFFERENTIALon 04-24-2024 Basophils (Bld) [#/Vol] 0.0 10*3/uL Normal 0.0-0.2 [facility] Comment on above: Performed By: #### L [id number] ####Steam Shovel Engineer: TRESSA SANTIZO ([phone])[facility] ([facility])[address] [place] [address] Basophils/100 WBC (Bld) 0.9 % Normal 0.0-2.0 [facility] Comment on above: Performed By: #### L [id number] ####Steam Shovel Engineer: TRESSA SANTIZO ([id number])[facility])[address] Eosinophils (Bld) [#/Vol] 0.1 10*3/uL Normal 0.0-0.5 [facility] Comment on above: Performed By: #### L [id number] ####Steam Shovel Engineer: TRESSA SANTIZO ([phone])[facility] ([facility])[address] Eosinophils/100 WBC (Bld) 2.2 % Normal 0.0-6.0 [facility] Comment on above: Performed By: #### L [id number] ####Steam Shovel Engineer: TRESSA SANTIZO ([phone])[facility] ([facility])[address] Erythrocyte distribution width (RBC) [Ratio] 14.2 % Normal 11.5-15.0 [facility] Comment on above: Performed By: #### L [id number] ####Steam Shovel Engineer: TRESSA SANTIZO ([phone])[facility])[address] Hematocrit (Bld) [Volume fraction] 33.1 % Low 40.0-52.0 [facility] Comment on above: Performed By: #### L [id number] ####Steam Shovel Engineer: TRESSA SANTIZO ([phone])[facility] ([facility])[address] Hemoglobin (Bld) [Mass/Vol] 10.9 g/dL Low 13.0-18.0 [facility] Comment on above: Performed By: #### L [id number] ####Steam Shovel Engineer: TRESSA SANTIZO ([phone])[facility] ([facility])[address] IMMATURE GRANS % 0.2 % Normal 0.0-2.0 [facility] Comment on above: Performed By: #### L [id number] ####Steam Shovel Engineer: TRESSA SANTIZO ([phone])[facility] ([facility])[address] IMMATURE GRANS ABSOLUTE 0.0 10*3/uL Normal <0.1 [facility] Comment on above: Performed By: #### L [id number] ####Steam Shovel Engineer: TRESSA SANTIZO ([id number])[facility] ([facility])[address] Lymphocytes (Bld) [#/Vol] 1.4 10*3/uL Normal 1.0-4.3 [facility] Comment on above: Performed By: #### L [id number] ####Steam Shovel Engineer: TRESSA JONESScarJAVY ([phone])[facility] [place] ([facility])[address] Lymphocytes/100 WBC (Bld) 30.3 % Normal 15.0-45.0 [facility] Comment on above: Performed By: #### L [id number] ####Steam Shovel Engineer: TRESSA CHRISJAVY ([phone])[facility] [place] ([facility])[address] MCH (RBC) [Entitic mass] 30.1 pg Normal 26.0-34.0 [facility] Comment on above: Performed By: #### L [id number] ####Steam Shovel Engineer: TRESSA CHRISJAVY ([id number])[facility] [place] ([facility])[address] MCHC 32.9 % Normal 30.5-36.0 [facility] Comment on above: Performed By: #### L [id number] ####Steam Shovel Engineer: TRESSA CHRISJAVY ([phone])[facility] [place] ([facility])[address] [place] [address] MCV (RBC) [Entitic vol] 91.4 fL Normal 77.0-99.0 [facility] Comment on above: Performed By: #### L [id number] ####Steam Shovel Engineer: TRESSA SANTIZO ([phone])[facility] [place] ([facility])[address] [place] [address] [place] Monocytes (Bld) [#/Vol] 0.3 10*3/uL Normal 0.0-0.9 [facility] Comment on above: Performed By: #### L [id number] ####Steam Shovel Engineer: TRESSA SANTIZO ([phone])[facility] [place] ([facility])[address] Monocytes/100 WBC (Bld) 7.6 % Normal 5.0-13.0 [facility] Comment on above: Performed By: #### L [id number] ####Steam Shovel Engineer: TRESSA SANTIZO ([phone])[facility] [place] ([facility])[address] NEUTROPHILS ABSOLUTE 2.6 10*3/uL Normal 1.8-7.5 [facility] Comment on above: Performed By: #### L [id number] ####Steam Shovel Engineer: TRESSA SANTIZO ([id number])[facility] [place] ([facility])[address] Neutrophils/100 WBC (Bld) 58.8 % Normal 38.0-82.0 [facility] Comment on above: Performed By: #### L [id number] ####Steam Shovel Engineer: TRESSA SANTIZO ([id number])[facility] [place] ([facility])[address] NRBC 0.0 /100 WBCs Normal 0.0-2.0 [facility] Comment on above: Performed By: #### L [id number] ####Steam Shovel Engineer: TRESSA SANTIZO ([phone])[facility] [place] ([facility])[address] Platelet mean volume (Bld) [Entitic vol] 8.7 fL Low 9.0-12.7 [facility] Comment on above: Performed By: #### L [id number] ####Steam Shovel Engineer: TRESSA SANTIZO ([id number])[facility] [place] ([facility])[address] Platelets (Bld) [#/Vol] 137 10*3/uL Low 140-440 [facility] Comment on above: Performed By: #### L [id number] ####Steam Shovel Engineer: TRESSA SANTIZO ([phone])[facility] [place] ([facility])[address] [place] [address] [place] RBC (Bld) [#/Vol] 3.62 10*6/uL Low 4.40-5.90 [facility] Comment on above: Performed By: #### L [id number] ####Steam Shovel Engineer: TRESSA SANTIZO ([id number])[facility] [place] ([facility])[address] WBC (Bld) [#/Vol] 4.5 10*3/uL Normal 3.6-10.7 [facility] Comment on above: Performed By: #### L [id number] ####Steam Shovel Engineer: TRESSA SANTIZO ([phone])[facility] [place] ([facility])[address] COMPREHENSIVE METABOLIC PANE Peter 04-24-2024 Albumin [Mass/Vol] 3.5 g/dL Normal 3.5-5.0 [facility] Comment on above: Performed By: #### L [id number] ####Steam Shovel Engineer: TRESSA SANTIZO ([phone])[facility] [place] ([facility])[address] ALP [Catalytic activity/Vol] 53 U/L Normal 38-126 [facility] Comment on above: Performed By: #### L [id number] ####Steam Shovel Engineer: TRESSA SANTIZO ([id number])[facility] ([facility])[address] ALT [Catalytic activity/Vol] 21 U/L Normal 0-49 [facility] Comment on above: Performed By: #### L [id number] ####Steam Shovel Engineer: TRESSA SANTIZO ([phone])[facility] [place] ([facility])[address] Anion gap [Moles/Vol] 6 mmol/L Normal 3-13 [facility] Comment on above: Performed By: #### L [id number] ####Steam Shovel Engineer: TRESSA SANTIZO ([phone])[facility] [place] ([facility])[address] [place] [address] [place] AST [Catalytic activity/Vol] 23 U/L Normal 15-46 [facility] Comment on above: Performed By: #### L [id number] ####Steam Shovel Engineer: TRESSA SANTIZO ([phone])[facility] ([facility])[address] Bilirubin [Mass/Vol] 0.6 mg/dL Normal 0.2-1.3 [facility] Comment on above: Performed By: #### L [id number] ####Steam Shovel Engineer: TRESSA SANTIZO ([phone])[facility] [place] ([facility])[address] Calcium [Mass/Vol] 8.8 mg/dL Normal 8.4-10.4 [facility] Comment on above: Performed By: #### L [id number] ####Steam Shovel Engineer: TRESSA SANTIZO ([id number])[facility] ([facility])[address] Chloride [Moles/Vol] 100 mmol/L Normal 98-107 [facility] Comment on above: Performed By: #### L [id number] ####Steam Shovel Engineer: TRESSA SANTIZO ([id number])[facility] ([facility])[address] CO2 [Moles/Vol] 26 mmol/L Normal 22-30 [facility] Comment on above: Performed By: #### L [id number] ####Steam Shovel Engineer: TRESSA SANTIZO ([id number])[facility] ([facility])[address] [place] [address] [place] Creatinine [Mass/Vol] 0.87 mg/dL Normal 0.66-1.25 [facility] Comment on above: Performed By: #### L [id number] ####Steam Shovel Engineer: TRESSA SANTIZO ([id number])[facility] ([facility])[address] GLOMERULAR FILTRATION RATE ML/MIN/1.73 SQ M.PREDICTED >90.0 Normal >60.0 [facility] Comment on above: Result Comment: Calc ulation based on the Chronic Kidney Disease Epidemiology Collaboration (CKD-EPI) equation refit without adjustment for race Performed By: #### L [id number] ####Steam Shovel Engineer: TRESSA SANTIZO ([id number])[facility] [place] ([facility])[address] Glucose [Mass/Vol] 147 mg/dL High 70-100 [facility] Comment on above: Performed By: #### L [id number] ####Steam Shovel Engineer: TRESSA SANTIZO ([id number])[facility] [place] ([facility])[address] Potassium [Moles/Vol] 4.0 mmol/L Normal 3.5-5.1 [facility] Comment on above: Performed By: #### L [id number] ####Steam Shovel Engineer: TRESSA SANTIZO ([id number])[facility] ([facility])[address] Protein [Mass/Vol] 6.2 g/dL Low 6.3-8.2 [facility] Comment on above: Performed By: #### L [id number] ####Steam Shovel Engineer: TRESSA SANTIZO ([phone])[facility] ([facility])[address] Sodium [Moles/Vol] 132 mmol/L Low 135-145 [facility] Comment on above: Performed By: #### L [id number] ####Steam Shovel Engineer: TRESSA SANTIZO ([id number])[facility] [place] ([facility])[address] Urea nitrogen [Mass/Vol] 7 mg/dL Low 9-20 [facility] Comment on above: Performed By: #### L [id number] ####Steam Shovel Engineer: TRESSA SANTIZO ([phone])[facility] ([facility])[address] Comprehensive metabolic 1998 panelon 04-24-2024 Albumin [Mass/Vol] 3.5 g/dL 3.5 - 5.0 g/dL [facility] ALP [Catalytic activity/Vol] 53 U/L 38 - 126 U/L [facility] ALT [Catalytic activity/Vol] 21 U/L 0 - 49 U/L [facility] Anion gap [Moles/Vol] 6 mmol/L 3 - 13 mmol/L [facility] AST [Catalytic activity/Vol] 23 U/L 15 - 46 U/L [facility] Bilirubin [Mass/Vol] 0.6 mg/dL 0.2 - 1 .3 mg/dL [facility] Calcium [Mass/Vol] 8.8 mg/dL 8.4 - 10. 4 mg/dL [facility] Chloride [Moles/Vol] 100 mmol/L 98 - 10 7 mmol/L [facility] CO2 [Moles/Vol] 26 mmol/L 22 - 30 mmol/L [facility] Creatinine [Mass/Vol] 0.87 mg/dL 0.66 - 1.25 mg/dL [facility] GFR/1.73 sq M.predicted MDRD (S/P/Bld) [Vol rate/Area] - PINF [facility] Comment on above: Calculation based on the Chronic Kidney Disease Epidemiology Collaboration (CKD-EPI) equation refit without adjustment for race Glucose [Mass/Vol] 147 mg/dL High 70 - 100 mg/dL [facility] Interpretation and review of laboratory results Abnormal [facility] Potassium [Moles/Vol] 4.0 mmol/L 3.5 - 5.1 mmol/L [facility] Protein [Mass/Vol] 6.2 g/dL Low 6.3 - 8.2 g/dL [facility] Sodium [Moles/Vol] 132 mmol/L Low 135 - 145 mmol/L [facility] Urea nitrogen [Mass/Vol] 7 mg/dL Low 9 - 20 mg/dL [facility] IDNon 04-24-2024 IDN Normal [facility] - Chemistry and C hemistry - challengeon 04-24-2024 Glucose [Mass/Vol] 176 mg/dL High 70 - 100 mg/dL [facility] Glucose [Mass/Vol] 98 mg/dL 70 - 100 mg/dL [facility] Glucose [Mass/Vol] 140 mg/dL High 70 - 100 mg/dL [facility] Glucose [Mass/Vol] 119 mg/dL High 70 - 100 mg/dL [facility] No Panel Informationon 04-24 Interpretation and review of laboratory results Abnormal [facility] Performed by: [facility], [address], [facility] [address] CLIA ID: [id number] [facility] Interpretation and review of laboratory results Normal [facility] Performed by: [facility], [address] [place], [facility] [address] CLIA ID: [id number] [facility] Interpretation and review of laboratory results Abnormal [facility] Performed by: [facility], [address], [facility] [address] CLIA ID: [id number] [facility] Interpretation and review of laboratory results Abnormal [facility] Performed by: [facility], [address], [facility] [address] CLIA ID: [id number] [facility] Nursing Noteon 04-24-2024 Nursing Note Normal [facility] Progress Noteon 04-24-2024 Progress Note Nutrition rescreen completed. Patient assigned a level 1 for nutrition care. Normal [facility] Progress Note Normal [facility] CBC W Auto Differential pane l (Bld)on 04-23-2024 Basophils (Bld) [#/Vol] 0.1 10*3/uL 0.0 - 0.2 10*3/uL [facility] Basophils/100 WBC (Bld) 1.2 % 0.0 - 2.0 % [facility] Eosinophils (Bld) [#/Vol] 0.2 10*3/uL 0.0 - 0.5 10*3/uL [facility] Eosinophils/100 WBC (Bld) 2.0 % 0.0 - 6.0 % [facility] Erythrocyte distribution width (RBC) [Ratio] 13.9 % 11.5 - 15.0 % [facility] Hematocrit (Bld) [Volume fraction] 32.8 % Low 40.0 - 52.0 % [facility] Hemoglobin (Bld) [Mass/Vol] 11.3 g/dL Low 13.0 - 18.0 g/dL [facility] Immature granulocytes (Bld) [#/Vol] 0.0 10*3/uL NINF - 0.1 10*3/uL [facility] Immature granulocytes/100 WBC (Bld) 0.4 % 0.0 - 2.0 % [facility] Interpretation and review of laboratory results Abnormal [facility] Lymphocytes (Bld) [#/Vol] 3.7 10*3/uL 1.0 - 4.3 10*3/uL [facility] Lymphocytes/100 WBC (Bld) 48.2 % High 15.0 - 45.0 % [facility] MCH (RBC) [Entitic mass] 30.4 pg 26.0 - 34.0 pg [facility] MCHC (RBC) [Mass/Vol] 34.5 % 30.5 - 36.0 % [facility] MCV (RBC) [Entitic vol] 88.2 fL 77.0 - 99.0 fL [facility] Monocytes (Bld) [#/Vol] 0.5 10*3/uL 0.0 - 0.9 10*3/uL [facility] Monocytes/100 WBC (Bld) 6.3 % 5.0 - 13.0 % [facility] Neutrophils (Bld) [#/Vol] 3.2 10*3/uL 1.8 - 7.5 10*3/uL [facility] Neutrophils/100 WBC (Bld) 41.9 % 38.0 - 82.0 % [facility] Nucleated RBC/100 WBC (Bld) [Ratio] 0.0 % [facility] Platelet mean volume (Bld) [Entitic vol] 8.5 fL Low 9.0 - 12.7 fL [facility] Platelets (Bld) [#/Vol] 200 10*3/uL 140 - 440 10*3/uL [facility] RBC (Bld) [#/Vol] 3.72 10*6/uL Low 4.40 - 5.9 0 10*6/uL [facility] WBC (Bld) [#/Vol] 7.6 10*3/uL 3.6 - 10.7 10*3/uL [facility] CBC WITH AUTO DIFFERENTIALon 04-23-2024 Basophils (Bld) [#/Vol] 0.1 10*3/uL Normal 0.0-0.2 [facility] Comment on above: Performed By: #### L [id number] ####Steam Shovel Engineer: TRESSA SANTIZO ([id number])[facility] ([facility])[address] Basophils/100 WBC (Bld) 1.2 % Normal 0.0-2.0 [facility] Comment on above: Performed By: #### L [id number] ####Steam Shovel Engineer: TRESSA SANTIZO ([id number])[facility] [place] ([facility])[address] Eosinophils (Bld) [#/Vol] 0.2 10*3/uL Normal 0.0-0.5 [facility] Comment on above: Performed By: #### L [id number] ####Steam Shovel Engineer: TRESSA SANTIZO ([id number])[facility] [place] ([facility])[address] Eosinophils/100 WBC (Bld) 2.0 % Normal 0.0-6.0 [facility] Comment on above: Performed By: #### L [id number] ####Steam Shovel Engineer: TRESSA SANTIZO ([phone])[facility] [place] ([facility])[address] Erythrocyte distribution width (RBC) [Ratio] 13.9 % Normal 11.5-15.0 [facility] Comment on above: Performed By: #### L [id number] ####Steam Shovel Engineer: TRESSA SANTIZO ([phone])[facility] [place] ([facility])[address] [place] [address] Hematocrit (Bld) [Volume fraction] 32.8 % Low 40.0-52.0 [facility] Comment on above: Performed By: #### L [id number] ####Steam Shovel Engineer: TRESSA SANTIZO ([id number])[facility] [place] ([facility])[address] Hemoglobin (Bld) [Mass/Vol] 11.3 g/dL Low 13.0-18.0 [facility] Comment on above: Performed By: #### L [id number] ####Steam Shovel Engineer: TRESSA SANTIZO ([phone])[facility] [place] ([facility])[address] IMMATURE GRANS % 0.4 % Normal 0.0-2.0 [facility] Comment on above: Performed By: #### L [id number] ####Steam Shovel Engineer: TRESSA CHRISJAVY ([id number])[facility] [place] ([facility])[address] IMMATURE GRANS ABSOLUTE 0.0 10*3/uL Normal <0.1 [facility] Comment on above: Performed By: #### L [id number] ####Steam Shovel Engineer: TRESSA SANTIZO ([id number])[facility] [place] ([facility])[address] Lymphocytes (Bld) [#/Vol] 3.7 10*3/uL Normal 1.0-4.3 [facility] Comment on above: Performed By: #### L [id number] ####Steam Shovel Engineer: TRESSA SANTIZO ([id number])[facility] ([facility])[address] Lymphocytes/100 WBC (Bld) 48.2 % High 15.0-45.0 [facility] Comment on above: Performed By: #### L [id number] ####Steam Shovel Engineer: TRESSA SANTIZO ([id number])[facility] [place] ([facility])[address] MCH (RBC) [Entitic mass] 30.4 pg Normal 26.0-34.0 [facility] Comment on above: Performed By: #### L [id number] ####Steam Shovel Engineer: TRESSA SANTIZO ([phone])[facility] [place] ([facility])[address] MCHC 34.5 % Normal 30.5-36.0 [facility] Comment on above: Performed By: #### L [id number] ####Steam Shovel Engineer: TRESSA SANTIZO ([id number])[facility] ([facility])[address] MCV (RBC) [Entitic vol] 88.2 fL Normal 77.0-99.0 [facility] Comment on above: Performed By: #### L [id number] ####Steam Shovel Engineer: TRESSA SANTIZO ([id number])[facility] [place] ([facility])[address] Monocytes (Bld) [#/Vol] 0.5 10*3/uL Normal 0.0-0.9 [facility] Comment on above: Performed By: #### L [id number] ####Steam Shovel Engineer: TRESSA SANTIZO ([phone])[facility] [place] ([facility])[address] Monocytes/100 WBC (Bld) 6.3 % Normal 5.0-13.0 [facility] Comment on above: Performed By: #### L [id number] ####Steam Shovel Engineer: TRESSA SANTIZO ([phone])[facility] [place] ([facility])[address] NEUTROPHILS ABSOLUTE 3.2 10*3/uL Normal 1.8-7.5 [facility] Comment on above: Performed By: #### L [id number] ####Steam Shovel Engineer: TRESSA SANTIZO ([id number])[facility] [place] ([facility])[address] Neutrophils/100 WBC (Bld) 41.9 % Normal 38.0-82.0 [facility] Comment on above: Performed By: #### L [id number] ####Steam Shovel Engineer: TRESSA SANTIZO ([id number])[facility] [place] ([facility])[address] NRBC 0.0 /100 WBCs Normal 0.0-2.0 [facility] Comment on above: Performed By: #### L [id number] ####Steam Shovel Engineer: TRESSA SANTIZO ([phone])[facility] [place] ([facility])[address] [place] [address] [place] Platelet mean volume (Bld) [Entitic vol] 8.5 fL Low 9.0-12.7 [facility] Comment on above: Performed By: #### L [id number] ####Steam Shovel Engineer: TRESSA SANTIZO ([phone])HANNA BENITEZTim (SBHLAB)[address] Platelets (Bld) [#/Vol] 200 10*3/uL Normal 140-440 [facility] [facility] Comment on above: Performed By: #### L [id number] ####Steam Shovel Engineer: TRESSA SANTIZO ([phone])[facility]ITALOct[facility] (SBHLAB)[address] RBC (Bld) [#/Vol] 3.72 10*6/uL Low 4.40-5.90 [facility] Comment on above: Performed By: #### L [id number] ####Steam Shovel Engineer: TRESSA SANTIZO ([phone])[facility]OSPITALOctavia POLKTRINITYN (SBHLAB)[address] WBC (Bld) [#/Vol] 7.6 10*3/uL Normal 3.6-10.7 [facility] Comment on above: Performed By: #### L [id number] ####Steam Shovel Engineer: TRESSA SANTIZO ([id number])[facility]ITALOct[facility] (SBHLAB)[address] [place] [address] COMPREHENSIVE METABOLIC PANE Peter 04-23-2024 Albumin [Mass/Vol] 3.7 g/dL Normal 3.5-5.0 [facility] Comment on above: Performed By: #### L AB129, LAB17, [id number], LAB67 ####Steam Shovel Engineer: TRESSA SANTIZO ([phone])[facility]OSPITALOctavia POLKAILYN (SBHLAB)[address] ALP [Catalytic activity/Vol] 49 U/L Normal 38-126 [facility] Comment on above: Performed By: #### L AB129, LAB17, [id number], LAB67 ####Steam Shovel Engineer: TRESSA SANTIZO ([phone])[facility] HOS[facility]ITALA EMMANUELN (SBHLAB)[address] [place] [address] [place] ALT [Catalytic activity/Vol] 26 U/L Normal 0-49 [facility] Comment on above: Performed By: #### L AB129, LAB17, [id number], LAB67 ####Steam Shovel Engineer: TRESSA SANTIZO ([phone])[facility]OS[facility]ITALA [facility] (SBHLAB)[address] Anion gap [Moles/Vol] 13 mmol/L Normal 3-13 [facility] Comment on above: Performed By: #### L AB129, LAB17, [id number], LAB67 ####Steam Shovel Engineer: TRESSA SANTIZO ([phone])[facility] EMMANUELN (SBHLAB)[address] AST [Catalytic activity/Vol] 45 U/L Normal 15-46 [facility] Comment on above: Performed By: #### L AB129, LAB17, [id number], LAB67 ####Steam Shovel Engineer: TRESSA DARLYN ([phone])[facility]OS[facility]ITALOct[facility] (SBHLAB)[address] Bilirubin [Mass/Vol] 0.5 mg/dL Normal 0.2-1.3 [facility] Comment on above: Performed By: #### L AB129, LAB17, JRM571, LAB67 ####Steam Shovel Engineer: TRESSA DARLYN ([phone])[facility]ITALOct[facility] (SBHLAB)[address] Calcium [Mass/Vol] 8.5 mg/dL Normal 8.4-10.4 [facility] Comment on above: Performed By: #### L AB129, LAB17, IWN035, LAB67 ####Steam Shovel Engineer: TRESSA DARLYN ([phone])[facility]ITALOct[facility] (SBHLAB)[address] [place] [address] [place] Chloride [Moles/Vol] 93 mmol/L Low 98-107 [facility] Comment on above: Performed By: #### L AB129, LAB17, [id number], LAB67 ####Steam Shovel Engineer: TRESSA SANTIZO ([phone])[facility]ITALOctavia [facility] (SBHLAB)[address] [place] [address] [place] CO2 [Moles/Vol] 22 mmol/L Normal 22-30 [facility] Comment on above: Performed By: #### L AB129, LAB17, [id number], LAB67 ####Steam Shovel Engineer: TRESSA SANTIZO ([phone])[facility]ITALOctavia [facility] (SBHLAB)[address] Creatinine [Mass/Vol] 0.94 mg/dL Normal 0.66-1.25 [facility] Comment on above: Performed By: #### L AB129, LAB17, TGF629, LAB67 ####Steam Shovel Engineer: TRESSA SANTIZO ([phone])[facility]ITALOct[facility] (SBHLAB)[address] GLOMERULAR FILTRATION RATE ML/MIN/1.73 SQ M.PREDICTED >90.0 Normal >60.0 [facility] Comment on above: Result Comment: Calc ulation based on the Chronic Kidney Disease Epidemiology Collaboration (CKD-EPI) equation refit without adjustment for race Performed By: #### L AB129, LAB17, SHW229, LAB67 ####Steam Shovel Engineer: TRESSA SANTIZO ([phone])[facility]ITALOctavia [facility] (SBHLAB)[address] [place] [address] [place] Glucose [Mass/Vol] 127 mg/dL High 70-100 [facility] Comment on above: Performed By: #### L AB129, LAB17, [id number], LAB67 ####Steam Shovel Engineer: TRESSA SANTIZO ([phone])[facility]ITALOctavia [facility] (SBHLAB)[address] [place] [address] [place] Potassium [Moles/Vol] 3.4 mmol/L Low 3.5-5.1 [facility] Comment on above: Performed By: #### L AB129, LAB17, [id number], LAB67 ####Steam Shovel Engineer: TRESSA SANTIZO ([phone])[facility]OS[facility]ITALOctavia BENITEZN (SBHLAB)[address] Protein [Mass/Vol] 6.3 g/dL Normal 6.3-8.2 [facility] Comment on above: Performed By: #### L AB129, LAB17, [id number], LAB67 ####Steam Shovel Engineer: TRESSA SANTIZO ([phone])[facility]ITALOctavia BENITEZN (SBHLAB)[address] Sodium [Moles/Vol] 128 mmol/L Low 135-145 [facility] Comment on above: Performed By: #### L AB129, LAB17, QQQ736, LAB67 ####Steam Shovel Engineer: TRESSA SANTIZO ([phone])[facility]ITALOctavia BENITEZN (SBHLAB)[address] Urea nitrogen [Mass/Vol] 5 mg/dL Low 9-20 [facility] Comment on above: Performed By: #### L AB129, LAB17, MWO022, LAB67 ####Steam Shovel Engineer: TRESSA SANTIZO ([id number])[facility]ITALOctavia HERNANDEZ (SBHLAB)[address] Cobalamin (Vitamin B12) [Mas s/Vol]on 04-23-2024 Interpretation and review of laboratory results Normal [facility] Comprehensive metabolic 1998 panelon 04-23-2024 Albumin [Mass/Vol] 3.7 g/dL 3.5 - 5.0 g/dL [facility] ALP [Catalytic activity/Vol] 49 U/L 38 - 126 U/L [facility] ALT [Catalytic activity/Vol] 26 U/L 0 - 49 U/L [facility] Anion gap [Moles/Vol] 13 mmol/L 3 - 13 mmol/L [facility] AST [Catalytic activity/Vol] 45 U/L 15 - 46 U/L [facility] Bilirubin [Mass/Vol] 0.5 mg/dL 0.2 - 1 .3 mg/dL [facility] Calcium [Mass/Vol] 8.5 mg/dL 8.4 - 10. 4 mg/dL [facility] Chloride [Moles/Vol] 93 mmol/L Low 98 - 10 7 mmol/L [facility] CO2 [Moles/Vol] 22 mmol/L 22 - 30 mmol/L [facility] Creatinine [Mass/Vol] 0.94 mg/dL 0.66 - 1.25 mg/dL [facility] GFR/1.73 sq M.predicted MDRD (S/P/Bld) [Vol rate/Area] - PINF [facility] Comment on above: Calculation based on the Chronic Kidney Disease Epidemiology Collaboration (CKD-EPI) equation refit without adjustment for race Glucose [Mass/Vol] 127 mg/dL High 70 - 100 mg/dL [facility] Interpretation and review of laboratory results Abnormal [facility] Potassium [Moles/Vol] 3.4 mmol/L Low 3.5 - 5.1 mmol/L [facility] Protein [Mass/Vol] 6.3 g/dL 6.3 - 8.2 g/dL [facility] Sodium [Moles/Vol] 128 mmol/L Low 135 - 145 mmol/L [facility] Urea nitrogen [Mass/Vol] 5 mg/dL Low 9 - 20 mg/dL [facility] ECG 12-LEADon 04-23-2024 ECG 12-LEAD IMPRESSION: Sinus tachycardia RBBB and LAFB Electronically Signed On 04-23-2024 06:02:53 EDT by Marjan Doran Normal [facility] HEMOGLOBIN A1Con 04-23-2024 Glucose [Mass/Vol] 88 mg/dL Normal [facility] Comment on above: Order Comment: If no t done within the last 3 mos Performed By: #### L AB90 ####Steam Shovel Engineer: TRESSA SANTIZO ([phone])[facility]ITALOctavia HRENANDEZ (SBAB)[address] [place] [address] HbA1c (Bld) [Mass fraction] 4.7 % Normal <5.7 [facility] Comment on above: Order Comment: If no t done within the last 3 mos Result Comment: Norm al less than 5.7%Prediabetes 5.7% to 6.4%Diabetes 6.5% or higher--HgbA1C levels may not be accurate in patients who have renal disease, received recent blood transfusions, are anemic, or who have dyshemoglobinemia. Performed By: #### L AB90 ####Steam Shovel Engineer: TRESSA [phone])[facility] HERNANDEZ (SBHLAB)[address] Laboratory - Chemistry and C hemistry - challengeon 04-23-2024 Glucose [Mass/Vol] 142 mg/dL High 70 - 100 mg/dL [facility] Glucose [Mass/Vol] 133 mg/dL High 70 - 100 mg/dL [facility] Glucose [Mass/Vol] 187 mg/dL High 70 - 100 mg/dL [facility] Glucose [Mass/Vol] 124 mg/dL High 70 - 100 mg/dL [facility] Magnesium [Mass/Vol] 1.4 mg/dL Low 1.6 - 2 .3 mg/dL [facility] Average glucose Estimated from glycated hemoglobin (Bld) [Mass/Vol] 88 mg/dL [facility] Cobalamin (Vitamin B12) [Mass/Vol] 684 pg/mL 239 - 931 pg/mL [facility] TSH Qn 4.014 m[IU]/L [facility] Glucose [Mass/Vol] 148 mg/dL High 70 - 100 mg/dL [facility] Laboratory - Hematology and Cell countson 04-23-2024 HbA1c (Bld) [Mass fraction] 4.7 % NINF - 5.7 % [facility] Comment on above: Normal less than 5.7 % Prediabetes 5.7% to 6.4% Diabetes 6.5% or higher --HgbA1C levels may not be accurate in patients who have renal disease, received recent blood transfusions, are anemic, or who have dyshemoglobinemia. MAGNESIUMon 04-23-2024 Magnesium [Mass/Vol] 1.4 mg/dL Low 1.6-2.3 [facility] Comment on above: Performed By: #### L AB129, LAB17, SGQ303, LAB67 ####Steam Shovel Engineer: TRESSA SANTIZO ([phone])[facility]ITALOct[facility] HERNANDEZ (SBHLAB)[address] Magnesium [Mass/Vol]on 04-23 Interpretation and review of laboratory results Abnormal [facility] No Panel Informationon 04-23 Interpretation and review of laboratory results Abnormal [facility] Performed by: [facility], [address] [place] [address] CLIA ID: [id number] [facility] Interpretation and review of laboratory results Abnormal [facility] Performed by: [facility], [address] [facility] [address] CLIA ID: [id number] [facility] Interpretation and review of laboratory results Abnormal [facility] Performed by: [facility] [place] [facility], [address] [facility] [address] CLIA ID: [id number] [facility] Interpretation and review of laboratory results Abnormal [facility] Performed by: [facility] [place] [facility], [address] [facility] [address] CLIA ID: [id number] [facility] Sinus tachycardia RBBB and LAFB Electronically Signed On 04-23-2024 06:02:53 EDT by Marjan Doran CV Marjan Paredes MD - 04/23/2024 IMPRESSION: Sinus tachycardia RBBB and LAFB Electronically Signed On 04-23-2024 06:02:53 EDT by Marjan Doran [facility] Interpretation and review of laboratory results Abnormal [facility] Performed by: [facility], [address] [facility] [address] CLIA ID: [id number] [facility] No Panel InformationOrdered By: Marjan Doran on 04-23-2024 P [place] 41 degrees [facility] Work Phone: [place] Interval 169 ms [facility] Work Phone: QRS [place] -48 degrees [facility] Work Phone: QRSD Interval 147 ms [facility] Work Phone: QT Interval 396 ms [facility] Work Phone: QTC Interval 513 ms [facility] Work Phone: T Wave [place] -4 degrees [facility] Work Phone: [facility] Work Phone: Nursing Noteon 04-23-2024 Nursing Note Normal [facility] Progress Noteon 04-23-2024 Progress Note Normal [facility] Progress Note Normal [facility] Progress Note Normal [facility] THYROID STIMULATING HORMONEo n 04-23-2024 THYROID STIMULATING HORMONE 4.014 uIU/mL Normal 0.465-4.680 [facility] Comment on above: Performed By: #### L AB129, LAB17, [id number], LAB67 ####Steam Shovel Engineer: TRESSA SANTIZO ([phone])[facility] ([facility])[address] TSH Qnon 04-23-2024 Interpretation and review of laboratory results Normal [facility] VITAMIN B12on 04-23-2024 Cobalamin (Vitamin B12) [Mass/Vol] 684 pg/mL Normal 239-931 [facility] Comment on above: Performed By: #### L AB129, LAB17, [id number], LAB67 ####Steam Shovel Engineer: TRESSA SANTIZO ([phone])[facility] ([facility])[address] [place] [address] Vital signsOrdered By: Jaylon Doran on 04-23-2024 Heart rate 101 /min bpm [facility] Work Phone: ACETAMINOPHEN LEVELon 2023 Acetaminophen [Mass/Vol] ug/mL Low 10.0-30.0 [facility] Comment on above: Performed By: #### L AB43, LAB17, LAB46 ####Steam Shovel Engineer: TRESSA SANTIZO ([phone])[facility] ([facility])[address] [place] [address] CBC W Auto Differential pane l (Bld)Ordered By: Lorin Carmona on 04-22-2024 Erythrocyte distribution width (RBC) [Ratio] 13.7 % 11.5 - 15.0 % [facility] Hematocrit (Bld) [Volume fraction] 36.5 % Low 40.0 - 52.0 % [facility] Hemoglobin (Bld) [Mass/Vol] 12.9 g/dL Low 13.0 - 18.0 g/dL [facility] Interpretation and review of laboratory results Abnormal [facility] MCH (RBC) [Entitic mass] 30.4 pg 26.0 - 34.0 pg [facility] MCHC (RBC) [Mass/Vol] 35.3 % 30.5 - 36.0 % [facility] MCV (RBC) [Entitic vol] 86.1 fL 77.0 - 99.0 fL [facility] Platelet mean volume (Bld) [Entitic vol] 8.2 fL Low 9.0 - 12.7 fL [facility] Platelets (Bld) [#/Vol] 269 10*3/uL 140 - 440 10*3/uL [facility] RBC (Bld) [#/Vol] 4.24 10*6/uL Low 4.40 - 5.9 0 10*6/uL [facility] WBC (Bld) [#/Vol] 11.2 10*3/uL High 3.6 - 10.7 10*3/uL [facility] CBC WITH AUTO DIFFERENTIALon 04-22-2024 Erythrocyte distribution width (RBC) [Ratio] 13.7 % Normal 11.5-15.0 [facility] Comment on above: Performed By: #### L [id number], [id number] ####Steam Shovel Engineer: TRESSA SANTIZO ([phone])[facility] ([facility])[address] [place] [address] Hematocrit (Bld) [Volume fraction] 36.5 % Low 40.0-52.0 [facility] Comment on above: Performed By: #### L [id number], [id number] ####Steam Shovel Engineer: TRESSA SANTIZO ([phone])[facility] [place] [address] Hemoglobin (Bld) [Mass/Vol] 12.9 g/dL Low 13.0-18.0 [facility] Comment on above: Performed By: #### L [id number], [id number] ####Steam Shovel Engineer: TRESSA SANTIZO ([phone])[facility])[address] MCH (RBC) [Entitic mass] 30.4 pg Normal 26.0-34.0 [facility] Comment on above: Performed By: #### L [id number], [id number] ####Steam Shovel Engineer: TRESSA OJEDACER ([id number])[facility] B[facility]N (SBHLAB)[address] MCHC 35.3 % Normal 30.5-36.0 [facility] Comment on above: Performed By: #### L [id number], [id number] ####Steam Shovel Engineer: TRESSA SANTIZO ([phone])[facility] B[facility]ZN (SBHLAB)[address] MCV (RBC) [Entitic vol] 86.1 fL Normal 77.0-99.0 [facility] Comment on above: Performed By: #### L [id number], [id number] ####Steam Shovel Engineer: TRESSA CHRISJAVY ([phone])[facility] B[facility]ITEZN (SBHLAB)[address] [place] [address] Platelet mean volume (Bld) [Entitic vol] 8.2 fL Low 9.0-12.7 [facility] Comment on above: Performed By: #### L [id number], [id number] ####Steam Shovel Engineer: TRESSA SANTIZO ([phone])[facility]ITALOct[facility] (SBHLAB)[address] [place] [address] Platelets (Bld) [#/Vol] 269 10*3/uL Normal 140-440 [facility] Comment on above: Performed By: #### L [id number], [id number] ####Steam Shovel Engineer: TRESSA SANTIZO ([phone])[facility]ITALOct[facility] [place] (SBHLAB)[address] RBC (Bld) [#/Vol] 4.24 10*6/uL Low 4.40-5.90 [facility] Comment on above: Performed By: #### L [id number], [id number] ####Steam Shovel Engineer: TRESSA SANTIZO ([phone])[facility]ITALOct[facility] (SBHLAB)[address] [place] [address] [place] WBC (Bld) [#/Vol] 11.2 10*3/uL High 3.6-10.7 [facility] Comment on above: Performed By: #### L [id number], [id number] ####Steam Shovel Engineer: TRESSA SANTIZO ([id number])[facility]ITAL[facility] [place] (SBHLAB)[address] COMPLETE URINALYSISon 2023 BILIRUBIN, TOTAL PRESENCE IN URINE Negative Normal Negative [facility] Comment on above: Performed By: #### L [id number] ####Steam Shovel Engineer: TRESSA SANTIZO ([phone])[facility] ([facility])[address] Clarity (U) Clear Normal Clear [facility] Comment on above: Performed By: #### L AB347 ####Steam Shovel Engineer: TRESSA SANTIZO ([phone])[facility])[address] Color (U) Colorless Normal Lt. Yellow [facility] Comment on above: Performed By: #### L AB347 ####Steam Shovel Engineer: TRESSA SANTIZO ([phone])[facility] (SBHLAB)[address] GLUCOSE (MG/DL) IN URINE Normal Normal Normal (<70) [facility] Comment on above: Performed By: #### L AB347 ####Steam Shovel Engineer: TRESSA SANTIZO ([phone])[facility] (SBHLAB)[address] HEMOGLOBIN PRESENCE IN URINE Negative Normal Negative [facility] Comment on above: Performed By: #### L AB347 ####Steam Shovel Engineer: TRESSA SANTIZO ([phone])[facility] (SBHLAB)[address] Ketones Ql (U) Negative Normal Negative [facility] Comment on above: Performed By: #### L AB347 ####Steam Shovel Engineer: TRESSA SANTIZO ([phone])[facility] (SBHLAB)[address] LEUKOCYTE ESTERASE PRESENCE IN URINE BY TEST STRIP Negative Normal Negative [facility] Comment on above: Performed By: #### L AB347 ####Steam Shovel Engineer: TRESSA SANTIZO ([phone])[facility] (SBHLAB)[address] NITRITE PRESENCE IN URINE Negative Normal Negative [facility] Comment on above: Performed By: #### L AB347 ####Steam Shovel Engineer: TRESSA SANTIZO ([phone])[facility] (HLAB)[address] pH (U) 5.5 [pH] Normal 5.0-8.0 [facility] Comment on above: Performed By: #### L AB347 ####Steam Shovel Engineer: TRESSA SANTIZO ([id number])[facility])[address] Protein (U) [Mass/Vol] Negative Normal Negative [facility] Comment on above: Performed By: #### L AB347 ####Steam Shovel Engineer: TRESSA SANTIZO ([id number])[facility])[address] Specific gravity (U) [Rel density] 1.003 Low 1.005-1.030 [facility] Comment on above: Performed By: #### L AB347 ####Steam Shovel Engineer: TRESSA SANTIZO ([phone])[facility])[address] [place] [address] [place] UROBILINOGEN (MG/DL) IN URINE Normal Normal Normal (0-1) [facility] Comment on above: Performed By: #### L [id number] ####Steam Shovel Engineer: TRESSA SANTIZO ([id number])[facility])[address] COMPREHENSIVE METABOLIC PANE Peter 04-22-2024 Albumin [Mass/Vol] 4.6 g/dL Normal 3.5-5.0 [facility] Comment on above: Performed By: #### Popeye PERALES, LAB17, LAB46 ####Steam Shovel Engineer: TRESSA SANTIZO ([phone])[facility] [place] (SBHLAB)[address] ALP [Catalytic activity/Vol] 73 U/L Normal 38-126 [facility] Comment on above: Performed By: #### Popeye PERALES, LAB17, LAB46 ####Steam Shovel Engineer: TRESSA SANTIZO ([phone])[facility] [place] (SBHLAB)[address] ALT [Catalytic activity/Vol] 31 U/L Normal 0-49 [facility] Comment on above: Performed By: #### Popeye PERALES, LAB17, LAB46 ####Steam Shovel Engineer: TRESSA SANTIZO ([phone])[facility] [place] (SBHLAB)[address] Anion gap [Moles/Vol] 18 mmol/L High 3-13 [facility] Comment on above: Performed By: #### Popeye PERALES, LAB17, LAB46 ####Steam Shovel Engineer: TRESSA SANTIZO ([phone])[facility] [place] (SBHLAB)[address] [place] [address] [place] AST [Catalytic activity/Vol] 53 U/L High 15-46 [facility] Comment on above: Performed By: #### Popeye PERALES, LAB17, LAB46 ####Steam Shovel Engineer: TRESSA SANTIZO ([id number])[facility] [place] (SBHLAB)[address] [place] [address] [place] Bilirubin [Mass/Vol] 0.5 mg/dL Normal 0.2-1.3 [facility] Comment on above: Performed By: #### Popeye DERAS43, LAB17, LAB46 ####Steam Shovel Engineer: TRESSA SANTIZO ([id number])[facility] [place] (SBHLAB)[address] [place] [address] [place] Calcium [Mass/Vol] 9.4 mg/dL Normal 8.4-10.4 [facility] Comment on above: Performed By: #### Popeye DERAS43, LAB17, LAB46 ####Steam Shovel Engineer: TRESSA SANTIZO ([phone])[facility]ITAL[facility] (SBHLAB)[address] Chloride [Moles/Vol] 89 mmol/L Low 98-107 [facility] Comment on above: Performed By: #### Popeye PERALES, LAB17, LAB46 ####Steam Shovel Engineer: TRESSA SANTIZO ([phone])[facility]ITAL[facility] (SBHLAB)[address] CO2 [Moles/Vol] 20 mmol/L Low 22-30 [facility] Comment on above: Performed By: #### Popeye DERAS43, LAB17, LAB46 ####Steam Shovel Engineer: TRESSA SANTIZO ([id number])[facility] Creatinine [Mass/Vol] 0.78 mg/dL Normal 0.66-1.25 [facility] Comment on above: Performed By: #### Popeye PERALES, LAB17, LAB46 ####Steam Shovel Engineer: TRESSA SANTIZO ([phone])[facility] ([facility])[address] GLOMERULAR FILTRATION RATE ML/MIN/1.73 SQ M.PREDICTED >90.0 Normal >60.0 [facility] Comment on above: Result Comment: Calc ulation based on the Chronic Kidney Disease Epidemiology Collaboration (CKD-EPI) equation refit without adjustment for race Performed By: #### Popeye DERAS43, LAB17, LAB46 ####Steam Shovel Engineer: TRESSA SANTIZO ([phone])[facility] [place] [address] [place] Glucose [Mass/Vol] 92 mg/dL Normal 70-100 [facility] Comment on above: Performed By: #### Popeye PERALES, LAB17, LAB46 ####Steam Shovel Engineer: TRESSA SANTIZO ([id number])[facility])[address] Potassium [Moles/Vol] 4.2 mmol/L Normal 3.5-5.1 [facility] Comment on above: Performed By: #### L [id number], LAB17, LAB46 ####Steam Shovel Engineer: TRESSA SANTIZO ([phone])[facility] [place] (SB[facility])[address] Protein [Mass/Vol] 7.5 g/dL Normal 6.3-8.2 [facility] Comment on above: Performed By: #### L AB43, LAB17, LAB46 ####Steam Shovel Engineer: TRESSA SANTIZO ([phone])[facility] [place] (SBHLAB)[address] Sodium [Moles/Vol] 127 mmol/L Low 135-145 [facility] Comment on above: Performed By: #### Popeye AB43, LAB17, LAB46 ####Steam Shovel Engineer: TRESSA SANTIZO ([phone])[facility] ([facility])[address] Urea nitrogen [Mass/Vol] 5 mg/dL Low 9-20 [facility] Comment on above: Performed By: #### L AB43, LAB17, LAB46 ####Steam Shovel Engineer: TRESSA SANTIZO ([phone])[facility] ([facility] Comprehensive metabolic 1998 panelon 04-22-2024 Albumin [Mass/Vol] 4.6 g/dL 3.5 - 5.0 g/dL [facility] ALP [Catalytic activity/Vol] 73 U/L 38 - 126 U/L [facility] ALT [Catalytic activity/Vol] 31 U/L 0 - 49 U/L [facility] Anion gap [Moles/Vol] 18 mmol/L High 3 - 13 mmol/L [facility] AST [Catalytic activity/Vol] 53 U/L High 15 - 46 U/L [facility] Bilirubin [Mass/Vol] 0.5 mg/dL 0.2 - 1 .3 mg/dL [facility] Calcium [Mass/Vol] 9.4 mg/dL 8.4 - 10. 4 mg/dL [facility] Chloride [Moles/Vol] 89 mmol/L Low 98 - 10 7 mmol/L [facility] CO2 [Moles/Vol] 20 mmol/L Low 22 - 30 mmol/L [facility] Creatinine [Mass/Vol] 0.78 mg/dL 0.66 - 1.25 mg/dL [facility] GFR/1.73 sq M.predicted MDRD (S/P/Bld) [Vol rate/Area] - PINF [facility] Comment on above: Calculation based on the Chronic Kidney Disease Epidemiology Collaboration (CKD-EPI) equation refit without adjustment for race Glucose [Mass/Vol] 92 mg/dL 70 - 100 mg/dL [facility] Potassium [Moles/Vol] 4.2 mmol/L 3.5 - 5.1 mmol/L [facility] Protein [Mass/Vol] 7.5 g/dL 6.3 - 8.2 g/dL [facility] Sodium [Moles/Vol] 127 mmol/L Low 135 - 145 mmol/L [facility] Urea nitrogen [Mass/Vol] 5 mg/dL Low 9 - 20 mg/dL [facility] DRUGS OF ABUSEon 04-22-2024 AMPHETAMINE SCREEN Negative Normal [facility] Comment on above: Performed By: #### L [id number], [id number], [id number] ####Steam Shovel Engineer: TRESSA SANTIZO ([phone])[facility] (SBHLAB)[address] [place] [address] BARBITURATES SCREEN Positive Normal [facility] Comment on above: Performed By: #### L [id number], [id number], [id number] ####Steam Shovel Engineer: TRESSA SANTIZO ([phone])[facility] (SBHLAB)[address] BENZODIAZEPINE SCREEN Negative Normal [facility] Comment on above: Performed By: #### L [id number], [id number], [id number] ####Steam Shovel Engineer: TRESSA SANTIZO ([phone])[facility] (SBHLAB)[address] COCAINE METAB. SCREEN Negative Normal [facility] Comment on above: Performed By: #### L [id number], [id number], [id number] ####Steam Shovel Engineer: TRESSA SANTIZO ([id number])[facility] (SBHLAB)[address] METHADONE SCREEN Negative Normal [facility] Comment on above: Performed By: #### L [id number], [id number], [id number] ####Steam Shovel Engineer: TRESSA SANTIZO ([phone])[facility] (SBHLAB)[address] OPIATES SCREEN Negative Normal [facility] Comment on above: Performed By: #### L [id number], [id number], [id number] ####Steam Shovel Engineer: TRESSA SANTIZO ([phone])[facility] (SBHLAB)[address] OXYCODONE SCREEN Positive Normal [facility] Comment on above: Performed By: #### L [id number], [id number], [id number] ####Steam Shovel Engineer: TRESSA SANTIZO ([id number])[facility] (SBHLAB)[address] PHENCYCLIDINE SCREEN Negative Normal [facility] Comment on above: Result Comment: CLAIRE Buitrago COMMENTS:The expected value for all of the [...] under separate order. Performed By: #### L [id number], [id number], [id number] ####Steam Shovel Engineer: TRESSA SANTIZO ([phone])[facility] (SBHLAB)[address] ED Nursing Noteon 04-22-2024 ED Nursing Note Normal [facility] ED Nursing Note Normal [facility] ED Nursing Note Detox rules signed b y patient. Witnessed by ACC RN. Ruperto Cortez RN 04/22/24 2204 Normal [facility] ED Provider Noteon ED Provider Note Normal [facility] ETHANOLon 04-22-2024 ETHANOL IN SER/PLAS 0.309 g/dL Critically high 0.000-0.010 [facility] Comment on above: Result Comment: CLAIRE R COMMENTS:NOTE: This result is for medical treatment only. Analysis performed using non-forensic procedures. Performed By: #### L AB43, LAB17, LAB46 ####Steam Shovel Engineer: TRESSA SANTIZO ([phone])[facility] Ethanol (Bld) [Mass/Vol]Orde red By: Marlyn Levine on 04-22-2024 Ethanol [Mass/Vol] 0.309 g/dL Critically high 0.000 - 0.010 g/dL [facility] Interpretation and review of laboratory results Abnormal [facility] Laboratory - Chemistry and C hemistry - challengeOrdered By: Daniel Allen on 04-22-2024 Osmolality [Osmolality] 333 mosm/kg High [facility] Laboratory - Chemistry and C hemistry - challengeon 04-22-2024 Glucose [Mass/Vol] 73 mg/dL 70 - 100 mg/dL [facility] Sodium (24H U) [Mass/Vol] 7 mmol/L Low 30 - 90 mmol/L [facility] Laboratory - Drug toxicology on 04-22-2024 Amphetamines Screen method >1000 ng/mL Ql (U) Negative [facility] Barbiturates Screen method >200 ng/mL Ql (U) Positive [facility] Benzodiazepines Ql (U) Negative [facility] Methadone Screen Ql (U) Negative [facility] Opiates Screen Ql (U) Negative [facility] oxyCODONE Ql (U) Positive [facility] Phencyclidine Ql (U) Negative [facility] Acetaminophen [Mass/Vol] ug/mL Low 10.0 - 30.0 ug/mL [facility] Laboratory - Hematology and Cell countson 04-22-2024 Basophils (Bld) [#/Vol] 0.2 10*3/uL 0.0 - 0.2 10*3/uL [facility] Basophils/100 WBC (Bld) 2 % 0 - 2 % [facility] Eosinophils (Bld) [#/Vol] 0.3 10*3/uL 0.0 - 0.5 10*3/uL [facility] Eosinophils/100 WBC (Bld) 3 % 0 - 6 % [facility] Lymphocytes (Bld) [#/Vol] 4.3 10*3/uL 1.0 - 4.3 10*3/uL [facility] Lymphocytes/100 WBC (Bld) 38 % 15 - 45 % [facility] Monocytes (Bld) [#/Vol] 0.1 10*3/uL 0.0 - 0.9 10*3/uL [facility] Monocytes/100 WBC (Bld) 1 % Low 5 - 13 % [facility] Neutrophils (Bld) [#/Vol] 6.3 10*3/uL 1.8 - 7.5 10*3/uL [facility] RBC morphology finding Nom (Bld) Normal [facility] Segmented neutrophils/100 WBC (Bld) 56 % 38 - 82 % [facility] Laboratory - Microbiology an d Antimicrobial susceptibilityOrdered By: Aylin Moran on 04-22-2024 SARS-CoV-2 (COVID-19) Ag IA.rapid Ql (Resp) Negative Negative [facility] Comment on above: A negative result do es not rule out the possibility of SARS-CoV-2 infection. NAAT-based methods should be considered for symptomatic patients presenting greater than seven days after onset of symptoms. Method: Lateral flow immunoassay. Fact sheets for healthcare providers and patients can be found at the following sites: https://www.fda.gov/media/725929/download https://www.fda.gov/media/230638/download MANUAL DIFFERENTIAL (CELLAVI ILIANA)on 04-22-2024 BAND NEUTROPHILS TOTAL PER COUNTED LEUKOCYTES BY MANUAL COUNT Normal [facility] Comment on above: Performed By: #### L [id number], [id number] ####Steam Shovel Engineer: TRESSA SANTIZO ([phone])[facility] [place] (SBHLAB)[address] [place] [address] [place] BASOPHILS (10*3/UL) IN BLOOD-CELLAVISION 0.2 10*3/uL Normal 0.0-0.2 [facility] Comment on above: Performed By: #### L [id number], [id number] ####Steam Shovel Engineer: TRESSA SANTIZO ([phone])[facility] [place] (SBHLAB)[address] [place] [address] [place] BASOPHILS TOTAL PER COUNTED LEUKOCYTES BY MANUAL COUNT 2 Normal [facility] Comment on above: Performed By: #### L [id number], [id number] ####Steam Shovel Engineer: TRESSA SANTIZO ([phone])[facility] [place] (SBHLAB)[address] [place] [address] [place] BASOPHILS/100 LEUKOCYTES IN BLOOD-CELLAVISION 2 % Normal 0-2 [facility] Comment on above: Performed By: #### L [id number], [id number] ####Steam Shovel Engineer: TRESSA SANTIZO ([phone])[facility] [place] (SBHLAB)[address] [place] [address] [place] BLASTS TOTAL PER COUNTED LEUKOCYTES BY MANUAL COUNT Normal [facility] Comment on above: Performed By: #### L [id number], [id number] ####Steam Shovel Engineer: TRESSA SANTIZO ([phone])[facility] [place] (SBHLAB)[address] [place] [address] [place] EOSINOPHILS (10*3/UL) IN BLOOD-CELLAVISION 0.3 10*3/uL Normal 0.0-0.5 [facility] Comment on above: Performed By: #### L [id number], [id number] ####Steam Shovel Engineer: TRESSARAY SANTIZO ([phone])[facility] (SBHLAB)[address] [place] [address] [place] EOSINOPHILS TOTAL PER COUNTED LEUKOCYTES BY MANUAL COUNT 3 High 0-1 [facility] Comment on above: Performed By: #### L [id number], [id number] ####Steam Shovel Engineer: TRESSA SANTIZO ([phone])[facility] [place] ([facility])[address] [place] [address] [place] EOSINOPHILS/100 LEUKOCYTES IN BLOOD-CELLAVISION 3 % Normal 0-6 [facility] Comment on above: Performed By: #### L [id number], [id number] ####Steam Shovel Engineer: TRESSA SANTIZO ([id number])[facility] [place] ([facility])[address] [place] [address] [place] LYMPHOCYTES (10*3/UL) IN BLOOD-CELLAVISION 4.3 10*3/uL Normal 1.0-4.3 [facility] Comment on above: Performed By: #### L [id number], [id number] ####Steam Shovel Engineer: TRESSA SANTIZO ([id number])[facility] [place] ([facility])[address] [place] [address] [place] LYMPHOCYTES TOTAL PER COUNTED LEUKOCYTES BY MANUAL COUNT 38 Normal [facility] Comment on above: Performed By: #### L [id number], [id number] ####Steam Shovel Engineer: TRESSA SANTIZO ([id number])[facility] [place] ([facility])[address] [place] [address] [place] LYMPHOCYTES/100 LEUKOCYTES IN BLOOD-CELLAVISION 38 % Normal 15-45 [facility] Comment on above: Performed By: #### L [id number], [id number] ####Steam Shovel Engineer: TRESSA SANTIZO ([phone])[facility] [place] ([facility])[address] [place] [address] [place] METAMYELOCYTES TOTAL PER COUNTED LEUKOCYTES BY MANUAL COUNT [facility] Comment on above: Performed By: #### L [id number], [id number] ####Steam Shovel Engineer: TRESSA SANTIZO ([phone])[facility] [place] ([facility])[address] [place] [address] [place] MONOCYTES (10*3/UL) IN BLOOD-CELLAVISION 0.1 10*3/uL Normal 0.0-0.9 [facility] Comment on above: Performed By: #### L [id number], [id number] ####Steam Shovel Engineer: TRESSA SANTIZO ([id number])[facility] [place] (SBHLAB)[address] MONOCYTES TOTAL PER COUNTED LEUKOCYTES BY MANUAL COUNT 1 Normal [facility] Comment on above: Performed By: #### L [id number], [id number] ####Steam Shovel Engineer: TRESSA SANTIZO ([phone])[facility] [place] (SBHLAB)[address] [place] [address] [place] MONOCYTES/100 LEUKOCYTES IN BLOOD-JOSE 1 % Low 5-13 [facility] Comment on above: Performed By: #### L [id number], [id number] ####Steam Shovel Engineer: TRESSA SANTIZO ([phone])[facility] [place] ([facility])[address] [place] [address] [place] MYELOCYTES COUNTED BY MANUAL COUNT [facility] Comment on above: Performed By: #### L [id number], [id number] ####Steam Shovel Engineer: TRESSA SANTIZO ([phone])[facility] [place] ([facility])[address] [place] [address] [place] NEUTROPHILS TOTAL PER COUNTED LEUKOCYTES BY MANUAL COUNT 56 [facility] Comment on above: Performed By: #### L [id number], [id number] ####Steam Shovel Engineer: TRESSA SANTIZO ([id number])[facility] [place] ([facility])[address] [place] [address] [place] PROMYELOCYTES TOTAL PER COUNTED LEUKOCYTES BY MANUAL COUNT [facility] Comment on above: Performed By: #### L [id number], [id number] ####Steam Shovel Engineer: TRESSA SANTIZO ([id number])[facility] [place] ([facility])[address] [place] [address] [place] RBC MORPHOLOGY IN BLOOD Normal [facility] Comment on above: Performed By: #### L [id number], [id number] ####Steam Shovel Engineer: TRESSA SANTIZO ([phone])[facility] (SBHLAB)[address] SEGMENTED NEUTROPHILS (10*3/UL) IN BLOOD-CELLAVISION 6.3 10*3/uL Normal 1.8-7.5 [facility] Comment on above: Performed By: #### L [id number], [id number] ####Steam Shovel Engineer: TRESSA SANTIZO ([phone])[facility] (SB[facility])[address] SEGMENTED NEUTROPHILS/100 LEUKOCYTES-CE 56 % Normal 38-82 [facility] Comment on above: Performed By: #### L [id number], [id number] ####Steam Shovel Engineer: TRESSA SANTIZO ([id number])[facility] ([facility])[address] UNCLASSIFIED CELLS TOTAL PER COUNTED LEUKOCYTES BY MANUAL COUNT Normal [facility] Comment on above: Performed By: #### L [id number], [id number] ####Steam Shovel Engineer: TRESSA SANTIZO ([phone])[facility] (SB[facility])[address] VARIANT LYMPHOCYTES TOTAL PER COUNTED LEUKOCYTES BY MANUAL COUNT Normal [facility] Comment on above: Performed By: #### L [id number], [id number] ####Steam Shovel Engineer: TRESSA SANTIZO ([id number])[facility] ([facility]AB)[address] [place] [address] No Panel InformationOrdered By: Daniel Allen on 04-22-2024 Interpretation and review of laboratory results Abnormal [facility] No Panel Informationon 04-22 Interpretation and review of laboratory results Normal [facility] Performed by: Hanna Chambers, [address] [place] [address] CLIA ID: [id number] [facility] Interpretation and review of laboratory results Abnormal [facility] Atypical Lymphocytes Manual [facility] Bands Manual [facility] Basophils Manual 2 [facility] Blasts Manual [facility] Eosinophils Manual 3 High 0 - 1 [facility] Interpretation and review of laboratory results Abnormal [facility] Lymphocytes Manual 38 [facility] Metamyelocytes Manual [facility] Monocytes Manual 1 [facility] Myelocytes Manual [facility] Neutrophils Manual 56 [facility] Promyelocytes Manual [facility] Unclassified Cells, Manual [facility] COCAINE METAB. SCREEN Negative [facility] The expected value f or all of [...] is needed, request confirmation under separate order. [facility] Interpretation and review of laboratory results Abnormal [facility] No Panel InformationOrdered By: Dee Viramontes on 04-22-2024 Interpretation and review of laboratory results Abnormal [facility] OSMOLALITY, URINE 154 Low [facility] OSMOLALITY, SERUMon 04-22-20 24 OSMOLALITY, SERUM 333 mOsm/kg High 280-300 [facility] Comment on above: Performed By: #### L [id number] ####Steam Shovel Engineer: TRESSA SANTIZO ([phone])[facility] ([facility])[address] [place] [address] OSMOLALITY, URINEon 04-22-20 24 OSMOLALITY, URINE 154 mOsm/kg Low 300-1000 [facility] Comment on above: Performed By: #### L [id number], [id number], [id number] ####Steam Shovel Engineer: TRESSA SANTIZO ([phone])[facility] ([facility])[address] Progress Noteon 04-22-2024 Progress Note Normal [facility] SARS-COV-2 ANTIGENon 024 SARS-COV-2 ANTIGEN Normal [facility] Comment on above: Performed By: #### L [id number] ####Steam Shovel Engineer: TRESSA SANTIZO ([phone])[facility] (SBHLAB)[address] SARS-CoV-2 (COVID-19) Ag IA. rapid Ql (Resp)Ordered By: Aylin Moran on 04-22-2024 Interpretation and review of laboratory results Normal [facility] SODIUM, URINE, RANDOMon 07-0 Sodium (U) [Moles/Vol] 7 mmol/L Low 30-90 [facility] Comment on above: Performed By: #### L [id number], [id number], [id number] ####Steam Shovel Engineer: TRESSA JONESScarJAVY ([phone])[facility] ([facility])[address] Urinalysis complete panel (U )on 04-22-2024 Bilirubin Ql (U) Negative Negative mg/dL [facility] Clarity (U) Clear Clear [facility] Color (U) Colorless Lt. Yellow [facility] Glucose Ql (U) Normal Normal (<70) mg/dL [facility] Hemoglobin Ql (U) Negative Negative mg/dL [facility] Interpretation and review of laboratory results Abnormal [facility] Ketones (U) [Mass/Vol] Negative Negat zenia mg/dL [facility] Leukocyte esterase Test strip Ql (U) Negative Negative Emma/uL [facility] Nitrite Ql (U) Negative Negative [facility] pH (U) 5.5 [pH] 5.0 - 8.0 pH [facility] Protein (U) [Mass/Vol] Negative Negat zenia mg/dL [facility] Specific gravity (U) [Rel density] 1.003 Low 1.005 - 1.030 [facility] Urobilinogen (U) [Mass/Vol] Normal Normal (0-1) mg/dL [facility] ALCOHOL, MEDICALon ALCOHOL MEDICAL < Normal <10.0 [facility] Comment on above: Result Comment: Alco hol cutoff: <10.00 mg/dL = None Detected Performed By: #### 4 [id number] #### [facility] [address] [place] [address] Eunice Rodriguez M.D. [id number] BASIC METABOLIC PANELon 03-20 Anion gap [Moles/Vol] 17 mmol/L Normal 10-20 [facility] Comment on above: Order Comment: [facility] has implemented the eGFR calculation approach that does not have a coefficient for race that conforms to the NKF-ASN Task Force Recommendations. Performed By: #### 4 6124 #### [facility] [address] [place], [place] [address] Eunice Rodriguez M.D. [id number] Calcium [Mass/Vol] 9.7 mg/dL Normal 8.4-10.2 [facility] Comment on above: Order Comment: [facility] has implemented the eGFR calculation approach that does not have a coefficient for race that conforms to the NKF-ASN Task Force Recommendations. Performed By: #### 4 [id number] #### [facility] [address] [place], [place] [address] Eunice Rodriguez M.D. [id number] Chloride [Moles/Vol] 103 mmol/L Normal 98-108 [facility] Comment on above: Order Comment: [facility] has implemented the eGFR calculation approach that does not have a coefficient for race that conforms to the NKF-ASN Task Force Recommendations. Performed By: #### 4 [id number] #### [facility] [address] [place], [place] [address] Eunice Rodriguez M.D. [id number] Creatinine [Mass/Vol] 1.01 mg/dL Normal 0.80-1.30 [facility] Comment on above: Order Comment: [facility] has implemented the eGFR calculation approach that does not have a coefficient for race that conforms to the NKF-ASN Task Force Recommendations. Performed By: #### 4 [id number] #### [facility] [address] [place], [place] [address] Eunice Rodriguez M.D. [id number] EGFR 83 mL/min/1.73 m2 Normal >=60 [facility] Comment on above: Order Comment: [facility] has implemented the eGFR calculation approach that does not have a coefficient for race that conforms to the NKF-ASN Task Force Recommendations. Result Comment: Brie mated GFR was calculated using the 2020 CKD-EPI creatinine equation. Performed By: #### 4 6124 #### [facility] [address] [place], [place] [address] Eunice Rodriguez M.D. [id number] Glucose [Mass/Vol] 101 mg/dL High 65-99 [facility] Comment on above: Order Comment: [facility] has implemented the eGFR calculation approach that does not have a coefficient for race that conforms to the NKF-ASN Task Force Recommendations. Performed By: #### 4 6124 #### [facility] [address] [place], [place] [address] Eunice Rodriguez M.D. [id number] HCO3 (Bld) [Moles/Vol] 24 mmol/L Normal 21-32 [facility] Comment on above: Order Comment: [facility] has implemented the eGFR calculation approach that does not have a coefficient for race that conforms to the NKF-ASN Task Force Recommendations. Performed By: #### 4 6124 #### [facility] [address] [place], [place] [address] Eunice Rodriguez M.D. [id number] Potassium [Moles/Vol] 4.0 mmol/L Normal 3.5-5.1 [facility] Comment on above: Order Comment: [facility] has implemented the eGFR calculation approach that does not have a coefficient for race that conforms to the NKF-ASN Task Force Recommendations. Performed By: #### 4 6124 #### [facility] [address] [place], [place] [address] Eunice Rodriguez M.D. [id number] Sodium [Moles/Vol] 140 mmol/L Normal 135-145 [facility] Comment on above: Order Comment: [facility] has implemented the eGFR calculation approach that does not have a coefficient for race that conforms to the NKF-ASN Task Force Recommendations. Performed By: #### 4 6124 #### [facility] [address] [place], [place] [address] Eunice Rodriguez M.D. [id number] Urea nitrogen [Mass/Vol] 8 mg/dL Normal 8-25 [facility] Comment on above: Order Comment: [facility] has implemented the eGFR calculation approach that does not have a coefficient for race that conforms to the NKF-ASN Task Force Recommendations. Performed By: #### 4 [id number] #### [facility] [address] [place] [address] Eunice Rodriguez M.D. [id number] Urea nitrogen/Creatinine [Mass ratio] 7.9 mg/mg Low 10.0-20.0 [facility] Comment on above: Order Comment: [facility] has implemented the eGFR calculation approach that does not have a coefficient for race that conforms to the NKF-ASN Task Force Recommendations. Performed By: #### 4 [id number] #### [facility] [address] [place] [address] Eunice Rodriguez M.D. [id number] CBC WITH AUTO DIFFERENTIALon 04-09-2024 AUTO NRBC 0.0 % Normal [facility] Comment on above: Performed By: #### L [id number] #### [facility] [address] [place] [address] Eunice Rodriguez M.D. [id number] AUTO NRBC ABS COUNT 0.00 K/mcL Normal 0.00-0.00 [facility] Comment on above: Performed By: #### L [id number] #### [facility] [address] [address] Eunice Rodriguez M.D. [id number] BASOPHILS ABSOLUTE COUNT 0.03 K/mcL Normal 0.00-0.30 [facility] Comment on above: Performed By: #### L [id number] #### [facility] [address] [place] [address] Eunice Rodriguez M.D. [id number] Basophils/100 WBC (Bld) 0.5 % Normal [facility] [facility] Comment on above: Performed By: #### L [id number] #### [facility] [address] [place] [address] Eunice Rodriguez M.D. [id number] Eosinophils (Bld) [#/Vol] 0.05 10*3/uL Normal 0.00-0.50 [facility] Comment on above: Performed By: #### L [id number] #### [facility] [address] [address] Eunice Rodriguez M.D. [id number] Eosinophils/100 WBC (Bld) 0.9 % Normal [facility] Comment on above: Performed By: #### L [id number] #### [facility] [address] [place] [address] Eunice Rodriguez M.D. [id number] Erythrocyte distribution width (RBC) [Ratio] 15.2 % High 11.6-14.8 [facility] Comment on above: Performed By: #### L [id number] #### [facility] [address] [place] [address] Eunice Rodriguez M.D. [id number] Hematocrit (Bld) [Volume fraction] 37.1 % Low 41.0-53.0 [facility] Comment on above: Performed By: #### L [id number] #### [facility] [address] [place] [address] Eunice Rodriguez M.D. [id number] Hemoglobin (Bld) [Mass/Vol] 12.4 g/dL Low 13.5-17.5 [facility] Comment on above: Performed By: #### L [id number] #### [facility] [address] [place] [address] Eunice Rodriguez M.D. [id number] IG ABSOLUTE 0.04 K/mcL Normal 0.00-0.30 [facility] Comment on above: Performed By: #### L [id number] #### [facility] [address] [place] [address] Eunice Rodriguez M.D. [id number] IG PERCENT 0.70 % Normal [facility] Comment on above: Result Comment: The IG parameter is the percentage of metamyelocytes, myelocytes and promyelocytes. An immature granulocyte count (IG) of 1% or more suggests the possibility of infection, an IG count of 3% is very likely related to an infection. Performed By: #### L [id number] #### [facility] [address] [place] [address] Eunice Rodriguez M.D. [id number] Lymphocytes (Bld) [#/Vol] 1.71 10*3/uL Normal 0.90-4.00 [facility] Comment on above: Performed By: #### L [id number] #### [facility] [address] [address] Eunice Rodriguez M.D. [id number] Lymphocytes/100 WBC (Bld) 30.1 % Normal [facility] Comment on above: Performed By: #### L [id number] #### [facility] [address] [address] Eunice Rodriugez M.D. [id number] MCH (RBC) [Entitic mass] 31.3 pg Normal 26.0-34.0 [facility] Comment on above: Performed By: #### L [id number] #### [facility] [address] [address] Eunice Rodriguez M.D. [id number] MCV (RBC) [Entitic vol] 93.7 fL Normal 80.0-100.0 [facility] Comment on above: Performed By: #### L [id number] #### [facility] [address] [address] Eunice Rodriguez M.D. [id number] MEAN CORPUSCULAR HEMOGLOBIN CONC 33.4 g/dL Normal 31.0-37.0 [facility] Comment on above: Performed By: #### L [id number] #### [facility] [address] [address] Eunice Rodriguez M.D. [id number] Monocytes (Bld) [#/Vol] 0.50 10*3/uL Normal 0.30-0.90 [facility] Comment on above: Performed By: #### L [id number] #### [facility] [address] [address] Eunice Rodriguez M.D. [id number] Monocytes/100 WBC (Bld) 8.8 % Normal [facility] Comment on above: Performed By: #### L [id number] #### [facility] [address] [address] Eunice Rodriguez M.D. [id number] NEUTROPHILS ABSOLUTE COUNT 3.36 K/mcL Normal 1.70-7.00 [facility] Comment on above: Performed By: #### L [id number] #### [facility] [address], [place] [address] Eunice Rodriguez M.D. [id number] Neutrophils/100 WBC (Bld) 59.0 % Normal [facility] Comment on above: Performed By: #### L [id number] #### [facility] [address] [address] Eunice Rodriguez M.D. [id number] Platelet mean volume (Bld) [Entitic vol] 8.9 fL Low 9.4-12.4 [facility] Comment on above: Performed By: #### L [id number] #### [facility] [address] [address] Eunice Rodriguez M.D. [id number] Platelets (Bld) [#/Vol] 112 10*3/uL Low 150-400 [facility] Comment on above: Performed By: #### L [id number] #### [facility] [address] [place], [place] [address] Eunice Rodriguez M.D. [id number] RBC (Bld) [#/Vol] 3.96 10*6/uL Low 4.50-5.90 [facility] Comment on above: Performed By: #### L [id number] #### [facility] [address] [address] Eunice Rodriguez M.D. [id number] WBC (Bld) [#/Vol] 5.69 10*3/uL Normal 4.50-11.00 [facility] Comment on above: Performed By: #### L [id number] #### [facility] [address], [place] [address] Eunice Rodriguez M.D. [id number] DRUGS OF ABUSE SCREEN, URINE on 04-09-2024 AMPHETAMINE SCREEN, URINE Not detected Normal None Detected [facility] Comment on above: Order Comment: Scree n results should be used for treatment purposes only. Specimen will be kept for 2 weeks, if the sample is adequate. Confirmation testing can be initiated by calling the lab within 2 weeks. Result Comment: Urin e Amphetamine Cutoff: < 1000 ng/mL = None Detected Performed By: #### 4 [id number] #### [facility] [address] [address] Enuice Rodriguez M.D. [id number] BARBITURATE SCREEN URINE Positive Abnormal None Detected [facility] Comment on above: Order Comment: Scree n results should be used for treatment purposes only. Specimen will be kept for 2 weeks, if the sample is adequate. Confirmation testing can be initiated by calling the lab within 2 weeks. Result Comment: Urin e Barbiturates Cutoff: < 200 ng/mL = None Detected Performed By: #### 4 [id number] #### [facility] [address] [address] Eunice Rodriguez M.D. [id number] BENZODIAZEPINE SCREEN, URINE Not detected Normal None Detected [facility] Comment on above: Order Comment: Scree n results should be used for treatment purposes only. Specimen will be kept for 2 weeks, if the sample is adequate. Confirmation testing can be initiated by calling the lab within 2 weeks. Result Comment: Urin e Benzodiazepine Cutoff: < 200 ng/mL = None Detected Performed By: #### 4 [id number] #### [facility] [address] [address] Eunice Rodriguez M.D. [id number] BUPRENORPHINE, URINE Not detected Normal None Detected [facility] Comment on above: Order Comment: Scree n results should be used for treatment purposes only. Specimen will be kept for 2 weeks, if the sample is adequate. Confirmation testing can be initiated by calling the lab within 2 weeks. Result Comment: Urin e Buprenorphine Cutoff: < 5 ng/mL = None Detected Performed By: #### 4 [id number] #### [facility] [address] [address] Eunice Rodriguez M.D. [id number] CANNABINOID SCREEN URINE Positive Abnormal None Detected [facility] Comment on above: Order Comment: Scree n results should be used for treatment purposes only. Specimen will be kept for 2 weeks, if the sample is adequate. Confirmation testing can be initiated by calling the lab within 2 weeks. Result Comment: Urin e Cannabinoids Cutoff: < 50 ng/mL = None Detected Performed By: #### 4 [id number] #### [facility] [address] [place] [address] Eunice Rodriguez M.D. [id number] COCAINE, SCREEN URINE Not detected Normal None Detected [facility] Comment on above: Order Comment: Scree n results should be used for treatment purposes only. Specimen will be kept for 2 weeks, if the sample is adequate. Confirmation testing can be initiated by calling the lab within 2 weeks. Result Comment: Urin e Cocaine Cutoff: < 300 ng/mL = None Detected Performed By: #### 4 [id number] #### [facility] [address] [place] [address] Eunice Rodriguez M.D. [id number] FENTANYL, URINE Not detected Normal None Detected [facility] Comment on above: Order Comment: Scree n results should be used for treatment purposes only. Specimen will be kept for 2 weeks, if the sample is adequate. Confirmation testing can be initiated by calling the lab within 2 weeks. Result Comment: Urin e Fentanyl Cutoff: < 1 ng/mL = None Detected Performed By: #### 4 [id number] #### [facility] [address] [place] [address] Eunice Rodriguez M.D. [id number] METHADONE SCREEN, URINE Not detected Normal None Detected [facility] Comment on above: Order Comment: Scree n results should be used for treatment purposes only. Specimen will be kept for 2 weeks, if the sample is adequate. Confirmation testing can be initiated by calling the lab within 2 weeks. Result Comment: Urin e Methadone Cutoff: < 300 ng/mL = None Detected Performed By: #### 4 [id number] #### [facility] [address] [address] Eunice Rodriguez M.D. [id number] OPIATE SCREEN URINE Not detected Normal None Detected [facility] Comment on above: Order Comment: Scree n results should be used for treatment purposes only. Specimen will be kept for 2 weeks, if the sample is adequate. Confirmation testing can be initiated by calling the lab within 2 weeks. Result Comment: Urin e Opiates Cutoff: < 300 ng/mL = None Detected Performed By: #### 4 6965 #### [facility] [address], [place] [address] Eunice Rodriguez M.D. [id number] OXYCODONE SCREEN, URINE Not detected Normal None Detected [facility] Comment on above: Order Comment: Scree n results should be used for treatment purposes only. Specimen will be kept for 2 weeks, if the sample is adequate. Confirmation testing can be initiated by calling the lab within 2 weeks. Result Comment: Urin e Oxycodone Cutoff: < 100 ng/mL = None Detected Performed By: #### 4 6965 #### [facility] [address] [address] Enuice Rodriguez M.D. [id number] URINALYSISon 04-09-2024 BACTERIA, URINE None Seen Normal None Seen [facility] Comment on above: Order Comment: Micro scopic examination is performed on all urinalysis samples and only positive findings are reported. The test for blood on the chemical analytic portion of urinalysis may also be positive due to hemoglobinuria and myoglobinuria and if red blood cells are present they are quantified by microscopic examination. Performed By: #### 4 6625 #### [facility] [address], [place] [address] Eunice Rodriguez M.D. [id number] BILIRUBIN, URINE Negative Normal Negative [facility] Comment on above: Order Comment: Micro scopic examination is performed on all urinalysis samples and only positive findings are reported. The test for blood on the chemical analytic portion of urinalysis may also be positive due to hemoglobinuria and myoglobinuria and if red blood cells are present they are quantified by microscopic examination. Performed By: #### 4 6625 #### [facility] [address], [place] [address] Eunice Rodriguez M.D. [id number] BLOOD, URINE Negative Normal Negative [facility] Comment on above: Order Comment: Micro scopic examination is performed on all urinalysis samples and only positive findings are reported. The test for blood on the chemical analytic portion of urinalysis may also be positive due to hemoglobinuria and myoglobinuria and if red blood cells are present they are quantified by microscopic examination. Performed By: #### 4 6625 #### [facility] [address], [place] [address] Eunice Rodriguez M.D. [id number] Clarity (U) Clear Normal Clear [facility] Comment on above: Order Comment: Micro scopic examination is performed on all urinalysis samples and only positive findings are reported. The test for blood on the chemical analytic portion of urinalysis may also be positive due to hemoglobinuria and myoglobinuria and if red blood cells are present they are quantified by microscopic examination. Performed By: #### 4 6625 #### [facility] [address], [place] [address] Eunice Rodriguez M.D. [id number] Color (U) Colorless Normal Colorless, Yellow [facility] Comment on above: Order Comment: Micro scopic examination is performed on all urinalysis samples and only positive findings are reported. The test for blood on the chemical analytic portion of urinalysis may also be positive due to hemoglobinuria and myoglobinuria and if red blood cells are present they are quantified by microscopic examination. Performed By: #### 4 6625 #### [facility] [address], [place] [address] Eunice Rodriguez M.D. [id number] Glucose Ql (U) Negative Normal Negative [facility] Comment on above: Order Comment: Micro scopic examination is performed on all urinalysis samples and only positive findings are reported. The test for blood on the chemical analytic portion of urinalysis may also be positive due to hemoglobinuria and myoglobinuria and if red blood cells are present they are quantified by microscopic examination. Performed By: #### 4 6625 #### [facility] [address] [place], [place] [address] Eunice Rodriguez M.D. [id number] Ketones Ql (U) Negative Normal Negative [facility] Comment on above: Order Comment: Micro scopic examination is performed on all urinalysis samples and only positive findings are reported. The test for blood on the chemical analytic portion of urinalysis may also be positive due to hemoglobinuria and myoglobinuria and if red blood cells are present they are quantified by microscopic examination. Performed By: #### 4 6625 #### [facility] [address] [place], [place] [address] Eunice Rodriguez M.D. [id number] Leukocyte esterase Test strip Ql (U) Negative Normal Negative [facility] Comment on above: Order Comment: Micro scopic examination is performed on all urinalysis samples and only positive findings are reported. The test for blood on the chemical analytic portion of urinalysis may also be positive due to hemoglobinuria and myoglobinuria and if red blood cells are present they are quantified by microscopic examination. Performed By: #### 4 6625 #### [facility] [address] [place], [place] [address] Eunice Rodriguez M.D. [id number] NITRITE, URINE Negative Normal Negative [facility] Comment on above: Order Comment: Micro scopic examination is performed on all urinalysis samples and only positive findings are reported. The test for blood on the chemical analytic portion of urinalysis may also be positive due to hemoglobinuria and myoglobinuria and if red blood cells are present they are quantified by microscopic examination. Performed By: #### 4 6625 #### [facility] [address] [place], [place] [address] Eunice Rodriguez M.D. [id number] pH (U) 5.0 [pH] Normal 5.0-7.0 [facility] Comment on above: Order Comment: Micro scopic examination is performed on all urinalysis samples and only positive findings are reported. The test for blood on the chemical analytic portion of urinalysis may also be positive due to hemoglobinuria and myoglobinuria and if red blood cells are present they are quantified by microscopic examination. Performed By: #### 4 6625 #### [facility] [address] [place], [place] [address] Eunice Rodriguez M.D. [id number] PROTEIN, URINE Negative Normal Negative [facility] Comment on above: Order Comment: Micro scopic examination is performed on all urinalysis samples and only positive findings are reported. The test for blood on the chemical analytic portion of urinalysis may also be positive due to hemoglobinuria and myoglobinuria and if red blood cells are present they are quantified by microscopic examination. Performed By: #### 4 6625 #### [facility] [address], [place] [address]Monserrat Rodriguez M.D. [id number] RBC, URINE < Normal 0-3 [facility] Comment on above: Order Comment: Micro scopic examination is performed on all urinalysis samples and only positive findings are reported. The test for blood on the chemical analytic portion of urinalysis may also be positive due to hemoglobinuria and myoglobinuria and if red blood cells are present they are quantified by microscopic examination. Performed By: #### 4 6625 #### [facility] [address] [address] Eunice Rodriguez M.D. [id number] Specific gravity (U) [Rel density] 1.004 Low 1.005-1.025 [facility] Comment on above: Order Comment: Micro scopic examination is performed on all urinalysis samples and only positive findings are reported. The test for blood on the chemical analytic portion of urinalysis may also be positive due to hemoglobinuria and myoglobinuria and if red blood cells are present they are quantified by microscopic examination. Performed By: #### 4 6625 #### [facility] [address] [place], [place] [address] Eunice Rodriguez M.D. [id number] UROBILINOGEN, URINE <2.0 Normal <2.0 [facility] Comment on above: Order Comment: Micro scopic examination is performed on all urinalysis samples and only positive findings are reported. The test for blood on the chemical analytic portion of urinalysis may also be positive due to hemoglobinuria and myoglobinuria and if red blood cells are present they are quantified by microscopic examination. Performed By: #### 4 6625 #### [facility] [address] [place], [place] [address] Eunice Rodriguez M.D. [id number] WBC LM.HPF (Urine sed) [#/Area] 1 /[HPF] Normal 0-5 [facility] Comment on above: Order Comment: Micro scopic examination is performed on all urinalysis samples and only positive findings are reported. The test for blood on the chemical analytic portion of urinalysis may also be positive due to hemoglobinuria and myoglobinuria and if red blood cells are present they are quantified by microscopic examination. Performed By: #### 4 6625 #### [facility] [address] [address] Eunice Rodriguez M.D. [id number] Bedside Glucoseon 04-08-2024 FINGERSTICK GLU 147 mg/dL High 74-[address] [facility] Comment on above: Result Comment: CORINNE BRY OF PATIENT CARE PER NURSING PROTOCOL Performed By: #### L 505.5000, L501.9100, L500.4050, L100.0100, L300.3900 #### [facility] [address] [place], [address] ED Prov Noteon 04-08-2024 ED Prov Note ED PROVIDER NOTE [facility] NAME: Woody Ni AGE: 64 y.o. : 1960 VISIT DATE: 04/08/2024 CSN: [id number] PCP: Jani Quezada MD Clinical Impression: 1. [...] sent to [facility] here in [place] for further care. Patient notes he has [...] patient did contact [employer] and stepson has been arrested. had told patient that [...] swelling. Gastrointestin (more content not included)... Normal [facility] Magnesiumon 04-08-2024 Magnesium [Mass/Vol] 1.8 mg/dL Normal 1.6-2.6 [facility] Comment on above: Performed By: #### L 500.2500, L100.0100, L501.5200 #### [facility] [address] [place], [address] Phosphoruson 04-08-2024 Phosphate [Mass/Vol] 2.5 mg/dL Normal 2.5-4.9 [facility] Comment on above: Performed By: #### L 500.2500, L100.0100, L501.5200 #### [facility] [address] [place], [address] Basic Metabolic Profile (BMP )on 04-07-2024 BUN/CRE 7.8 RATIO Low 10-[address] [facility] Comment on above: Performed By: #### L 500.2500, L100.0100, L501.5200 #### [facility] [address] [place], [address] CA,Total 8.5 mg/dL Normal 8.5-10.[address] [facility] Comment on above: Performed By: #### L 500.2500, L100.0100, L501.5200 #### [facility] [address] [place], [address] Chloride [Moles/Vol] 109 mmol/L High 98-107 [facility] Comment on above: Performed By: #### L 500.2500, L100.0100, L501.5200 #### [facility] [address] [place], [address] CO2 [Moles/Vol] 26.0 mmol/L Normal 21.0-32.[address] [facility] Comment on above: Performed By: #### L 500.2500, L100.0100, L501.5200 #### [facility] [address] [place], [address] Creatinine [Mass/Vol] 1.02 mg/dL Normal 0.70-1.30 [facility] Comment on above: Result Comment: The validity of the calculated GFR GFRAA in patients over 70 years has not been determined. Clinical correlation is essential. Performed By: #### L 500.2500, L100.0100, L501.5200 #### [facility] [address] [place], [address] ECRCL 75.54 ml/min Normal [facility] Comment on above: Performed By: #### L 500.2500, L100.0100, L501.5200 #### [facility] [address] [place], [address] EST GFR - AA 95 mL/min Normal >[address] [facility] Comment on above: Result Comment: Afri can [place] GFR Calc Performed By: #### L 500.2500, L100.0100, L501.5200 #### [facility] [address] [place], [address] GAP 5 Normal 5-[address] [facility] Comment on above: Performed By: #### L 500.2500, L100.0100, L501.5200 #### [facility] [address] [place], [address] GFR/1.73 sq M.predicted among non-blacks MDRD (S/P/Bld) [Vol rate/Area] 78 mL/min/{1.73_m2} Normal >[address] [facility] Comment on above: Result Comment: Non- GFR Calc Performed By: #### L 500.2500, L100.0100, L501.5200 #### [facility] [address] [place], [address] Glucose [Mass/Vol] 131 mg/dL High 74-106 [facility] Comment on above: Result Comment: Fast ing Glucose result greater than or equal to 126 mg/dL suggests DIABETES MELLITUS per A.D.A. criteria. Performed By: #### L 500.2500, L100.0100, L501.5200 #### [facility] [address] [place], [address] Potassium [Moles/Vol] 3.9 mmol/L Normal 3.5-5.1 [facility] Comment on above: Performed By: #### L 500.2500, L100.0100, L501.5200 #### [facility] [address] [place], [address] Sodium [Moles/Vol] 140 mmol/L Normal 136-145 [facility] Comment on above: Performed By: #### L 500.2500, L100.0100, L501.5200 #### [facility] [address] [place], [address] Urea nitrogen [Mass/Vol] 8 mg/dL Normal 7-[address] [facility] Comment on above: Performed By: #### L 500.2500, L100.0100, L501.5200 #### [facility] [address] [place], [address] Bedside Glucoseon 04-07-2024 FINGERSTICK GLU 152 mg/dL High 74-[address] [facility] Comment on above: Result Comment: CORINNE CESARENT OF PATIENT CARE PER NURSING PROTOCOL Performed By: #### L 505.5000, L501.9100, L500.4050, L100.0100, L300.3900 #### [facility] [address] [place], [address] FINGERSTICK GLU 117 mg/dL High 74-[address] [facility] Comment on above: Result Comment: CORINNE GEMENT OF PATIENT CARE PER NURSING PROTOCOL Performed By: #### L 505.5000, L501.9100, L500.4050, L100.0100, L300.3900 #### [facility] [address] [place], [address] FINGERSTICK GLU 132 mg/dL High 74-[address] [facility] Comment on above: Result Comment: CORINNE GEMENT OF PATIENT CARE PER NURSING PROTOCOL Performed By: #### L 505.5000, L501.9100, L500.4050, L100.0100, L300.3900 #### [facility] [address] [place], [address] FINGERSTICK GLU 132 mg/dL High -[address] [place] [address] Comment on above: Result Comment: COIRNNE GEMENT OF PATIENT CARE PER NURSING PROTOCOL Performed By: #### L 500.2500, L100.0100, L501.5200 #### [facility] [facility] [address] [place], [address] FINGERSTICK GLU 108 mg/dL High [address] [place] [address] Comment on above: Result Comment: CORINNE GEMENT OF PATIENT CARE PER NURSING PROTOCOL Performed By: #### L 500.2500, L100.0100, L501.5200 #### [facility] [address] [place], [address] Magnesiumon 04-07-2024 Magnesium [Mass/Vol] 1.5 mg/dL Low 1.6-2.6 [facility] Comment on above: Performed By: #### L 500.2500, L100.0100, L501.5200 #### [facility] [address] [place], [address] Phosphoruson 04-07-2024 Phosphate [Mass/Vol] 2.2 mg/dL Low 2.5-4.9 [facility] Comment on above: Performed By: #### L 500.2500, L100.0100, L501.5200 #### [facility] [address] [place], [address] Basic Metabolic Profile (BMP )on 04-06-2024 BUN/CRE 6.4 RATIO Low 10-[address] [facility] Comment on above: Performed By: #### L 505.5000, L501.9100, L500.4050, L100.0100, L300.3900 #### [facility] [address] [place], [address] CA,Total 8.4 mg/dL Low 8.5-10.[address] [facility] Comment on above: Performed By: #### L 505.5000, L501.9100, L500.4050, L100.0100, L300.3900 #### [facility] [address] [place], [address] Chloride [Moles/Vol] 111 mmol/L High 98-107 [facility] Comment on above: Performed By: #### L 505.5000, L501.9100, L500.4050, L100.0100, L300.3900 #### [facility] [address] [place], [address] CO2 [Moles/Vol] 21.0 mmol/L Normal 21.0-32.[address] [facility] Comment on above: Performed By: #### L 505.5000, L501.9100, L500.4050, L100.0100, L300.3900 #### [facility] [address] [place], [address] Creatinine [Mass/Vol] 0.93 mg/dL Normal 0.70-1.30 [facility] Comment on above: Result Comment: The validity of the calculated GFR GFRAA in patients over 70 years has not been determined. Clinical correlation is essential. Performed By: #### L 505.5000, L501.9100, L500.4050, L100.0100, L300.3900 #### [facility] [address] [place], [address] ECRCL 82.86 ml/min Normal [facility] Comment on above: Performed By: #### L 505.5000, L501.9100, L500.4050, L100.0100, L300.3900 #### [facility] [address] [place], [address] EST GFR - AA 105 mL/min Normal >[address] [facility] Comment on above: Result Comment: Afri can [place] GFR Calc Performed By: #### L 505.5000, L501.9100, L500.4050, L100.0100, L300.3900 #### [facility] [address] [place], [address] GAP 5 Normal 5-[address] [facility] Comment on above: Performed By: #### L 505.5000, L501.9100, L500.4050, L100.0100, L300.3900 #### [facility] [address] [place], [address] GFR/1.73 sq M.predicted among non-blacks MDRD (S/P/Bld) [Vol rate/Area] 87 mL/min/{1.73_m2} Normal >[address] [facility] Comment on above: Result Comment: Non- GFR Calc Performed By: #### L 505.5000, L501.9100, L500.4050, L100.0100, L300.3900 #### [facility] [address] [place], [address] Glucose [Mass/Vol] 96 mg/dL Normal 74-106 [facility] Comment on above: Performed By: #### L 505.5000, L501.9100, L500.4050, L100.0100, L300.3900 #### [facility] [address] [place], [address] Potassium [Moles/Vol] 4.0 mmol/L Normal 3.5-5.1 [facility] Comment on above: Performed By: #### L 505.5000, L501.9100, L500.4050, L100.0100, L300.3900 #### [facility] [address] [place], [address] Sodium [Moles/Vol] 137 mmol/L Normal 136-145 [facility] Comment on above: Performed By: #### L 505.5000, L501.9100, L500.4050, L100.0100, L300.3900 #### [facility] [address] [place], [address] Urea nitrogen [Mass/Vol] 6 mg/dL Low 7-[address] [facility] Comment on above: Performed By: #### L 505.5000, L501.9100, L500.4050, L100.0100, L300.3900 #### [facility] [address] [place], [address] Bedside Glucoseon 04-06-2024 FINGERSTICK GLU 97 mg/dL Normal 74-[address] [facility] Comment on above: Result Comment: CORINNE GEMENT OF PATIENT CARE PER NURSING PROTOCOL Performed By: #### L 501.5300, L501.5200 #### [facility] [address] [place], [address] FINGERSTICK GLU 180 mg/dL High 74-[address] [facility] Comment on above: Result Comment: CORINNE GEMENT OF PATIENT CARE PER NURSING PROTOCOL Performed By: #### L 505.5000, L501.9100, L500.4050, L100.0100, L300.3900 #### [facility] [address] [place], [address] FINGERSTICK GLU 91 mg/dL Normal 74-[address] [facility] Comment on above: Result Comment: CORINNE LONDONO OF PATIENT CARE PER NURSING PROTOCOL Performed By: #### L 501.5300, L501.5200 #### [facility] [address] [place], [address] Hemoglobin A1con 04-06-2024 HbA1c (Bld) [Mass fraction] 4.6 % Normal 3.8-5.[address] [facility] Comment on above: Result Comment: Norm al < 5.7 % Prediabetic 5.7 - 6.4 % Diabetic >or= 6.5 % Please note range changes. Performed By: #### L 505.5000, L501.9100, L500.4050, L100.0100, L300.3900 #### [facility] [address] [place], [address] Magnesiumon 04-06-2024 Magnesium [Mass/Vol] 1.3 mg/dL Low 1.6-2.6 [facility] Comment on above: Performed By: #### L 505.5000, L501.9100, L500.4050, L100.0100, L300.3900 #### [facility] [address] [place], [address] Phosphoruson 04-06-2024 Phosphate [Mass/Vol] 1.6 mg/dL Low 2.5-4.9 [facility] Comment on above: Performed By: #### L 505.5000, L501.9100, L500.4050, L100.0100, L300.3900 #### [facility] [address] [place], [address] Sodium Levelon 04-06-2024 Sodium [Moles/Vol] 138 mmol/L Normal 136-145 [facility] Comment on above: Performed By: #### L 505.5000, L501.9100, L500.4050, L100.0100, L300.3900 #### [facility] [address] [place], [address] Alcohol, Blood (Medical)-Ser umon 04-05-2024 SERUM ETOH [...] [facility] [address] [place], [address] Bedside Glucoseon 04-05-2024 FINGERSTICK GLU 108 mg/dL High 74-[address] [facility] Comment on above: Result Comment: CORINNE LONDONO OF PATIENT CARE PER NURSING PROTOCOL Performed By: #### L 500.2500, L100.0100, L501.5200 #### [facility] [address] [place], [address] CBC W/Diff, Automatedon - Absolute Lymph 2.59 X10 3/uL Normal 0.83-4.[address] [facility] Comment on above: Performed By: #### L 505.5000, L501.9100, L500.4050, L100.0100, L300.3900 #### [facility] [address] [place], [address] Absolute Neut 2.7 X10 3/uL Normal 2.0-7.[address] [facility] Comment on above: Performed By: #### L 505.5000, L501.9100, L500.4050, L100.0100, L300.3900 #### [facility] [address] [place], [address] Basophils/100 WBC (Bld) 0.7 % Normal 0-[address] [facility] Comment on above: Performed By: #### L 505.5000, L501.9100, L500.4050, L100.0100, L300.3900 #### [facility] [address] [place], [address] Eosinophils/100 WBC (Bld) 0.3 % Normal 0-[address] [facility] Comment on above: Performed By: #### L 505.5000, L501.9100, L500.4050, L100.0100, L300.3900 #### [facility] [address] [place], [address] Erythrocyte distribution width (RBC) [Ratio] 14.0 % Normal 11.6-14.[address] [facility] Comment on above: Performed By: #### L 505.5000, L501.9100, L500.4050, L100.0100, L300.3900 #### [facility] [address] [place], [address] Hematocrit (Bld) [Volume fraction] 33.1 % Low 40-[address] [facility] Comment on above: Performed By: #### L 505.5000, L501.9100, L500.4050, L100.0100, L300.3900 #### [facility] [address] [place], [address] Hemoglobin (Bld) [Mass/Vol] 11.6 g/dL Low 13.0-16.[address] [facility] Comment on above: Performed By: #### L 505.5000, L501.9100, L500.4050, L100.0100, L300.3900 #### [facility] [address] [place], [address] IG% 0.300 Normal 0.0-0.[address] [facility] Comment on above: Result Comment: IG% - Immature Granulocytes (promyelocytes, myelocytes and metamyelocytes) > 1% indicates that a LEFT SHIFT is Present. Performed By: #### L 505.5000, L501.9100, L500.4050, L100.0100, L300.3900 #### [facility] [address] [place], [address] Lymphocytes/100 WBC (Bld) 44.0 % High 19-[address] [facility] Comment on above: Performed By: #### L 505.5000, L501.9100, L500.4050, L100.0100, L300.3900 #### [facility] [address] [place], [address] MCH (RBC) [Entitic mass] 31.1 pg Normal 27.0-32.[address] [facility] Comment on above: Performed By: #### L 505.5000, L501.9100, L500.4050, L100.0100, L300.3900 #### [facility] [address] [place], [address] MCHC (RBC) [Mass/Vol] 35.0 g/dL Normal 32-36 [facility] Comment on above: Performed By: #### L 505.5000, L501.9100, L500.4050, L100.0100, L300.3900 #### [facility] [address] [place], [address] MCV (RBC) [Entitic vol] 88.7 fL Normal 80-[address] [facility] Comment on above: Performed By: #### L 505.5000, L501.9100, L500.4050, L100.0100, L300.3900 #### [facility] [address] [place], [address] Monocytes/100 WBC (Bld) 9.5 % Normal 0-[address] [facility] Comment on above: Performed By: #### L 505.5000, L501.9100, L500.4050, L100.0100, L300.3900 #### [facility] [address] [place], [address] Neutrophils/100 WBC (Bld) 45.2 % Low 47-[address] [facility] Comment on above: Performed By: #### L 505.5000, L501.9100, L500.4050, L100.0100, L300.3900 #### [facility] [address] [place], [address] Nucleated RBC (Bld) [#/Vol] 0 10*3/uL Normal 0-[address] [facility] Comment on above: Performed By: #### L 505.5000, L501.9100, L500.4050, L100.0100, L300.3900 #### [facility] [address] [place], [address] Platelet mean volume (Bld) [Entitic vol] 8.6 fL Normal 6.2-12.[address] [facility] Comment on above: Performed By: #### L 505.5000, L501.9100, L500.4050, L100.0100, L300.3900 #### [facility] [address] [place], [address] Platelets (Bld) [#/Vol] 114 10*3/uL Low 150-[address] [facility] Comment on above: Performed By: #### L 505.5000, L501.9100, L500.4050, L100.0100, L300.3900 #### [facility] [address] [place], [address] RBC (Bld) [#/Vol] 3.73 10*6/uL Low 4.6-6.2 [facility] Comment on above: Performed By: #### L 505.5000, L501.9100, L500.4050, L100.0100, L300.3900 #### [facility] [address] [place], [address] RDW SD 45.4 fl High 35.1-43.[address] [facility] Comment on above: Performed By: #### L 505.5000, L501.9100, L500.4050, L100.0100, L300.3900 #### [facility] [address] [place], [address] WBC (Bld) [#/Vol] 5.9 10*3/uL Normal 4.4-11.0 [facility] Comment on above: Performed By: #### L 505.5000, L501.9100, L500.4050, L100.0100, L300.3900 #### [facility] [address] [place], [address] Comprehensive Metabolic Prof ilon 04-05-2024 Albumin [Mass/Vol] 3.8 g/dL Normal 3.2-5.0 [facility] Comment on above: Performed By: #### L 505.5000, L501.9100, L500.4050, L100.0100, L300.3900 #### [facility] [address] [place], [address] Albumin/Globulin [Mass ratio] 1.0 {ratio} Normal 0.9-2.[address] [facility] Comment on above: Performed By: #### L 505.5000, L501.9100, L500.4050, L100.0100, L300.3900 #### [facility] [address] [place], [address] ALK P 84 U/L Normal 45-[address] [facility] Comment on above: Performed By: #### L 505.5000, L501.9100, L500.4050, L100.0100, L300.3900 #### [facility] [address] [place], [address] ALT [Catalytic activity/Vol] 21 U/L Normal 16-[address] [facility] Comment on above: Performed By: #### L 505.5000, L501.9100, L500.4050, L100.0100, L300.3900 #### [facility] [address] [place], [address] AST [Catalytic activity/Vol] 30 U/L Normal 15-[address] [facility] Comment on above: Performed By: #### L 505.5000, L501.9100, L500.4050, L100.0100, L300.3900 #### [facility] [address] [place], [address] Bilirubin [Mass/Vol] 1.20 mg/dL High 0.20-1.00 [facility] Comment on above: Result Comment: For patients on eltrombopag therapy, use of Dimension [place] TBIL is not recommended. Performed By: #### L 505.5000, L501.9100, L500.4050, L100.0100, L300.3900 #### [facility] [address] [place], [address] BUN/CRE 4.3 RATIO Low 10-[address] [facility] Comment on above: Performed By: #### L 505.5000, L501.9100, L500.4050, L100.0100, L300.3900 #### [facility] [address] [place], [address] CA,Total 8.7 mg/dL Normal 8.5-10.[address] [facility] Comment on above: Performed By: #### L 505.5000, L501.9100, L500.4050, L100.0100, L300.3900 #### [facility] [address] [place], [address] Chloride [Moles/Vol] 96 mmol/L Low 98-107 [facility] Comment on above: Performed By: #### L 505.5000, L501.9100, L500.4050, L100.0100, L300.3900 #### [facility] [address] [place], [address] CO2 [Moles/Vol] 17.0 mmol/L Low 21.0-32.[address] [facility] Comment on above: Performed By: #### L 505.5000, L501.9100, L500.4050, L100.0100, L300.3900 #### [facility] [address] [place], [address] Creatinine [Mass/Vol] 0.94 mg/dL Normal 0.70-1.30 [facility] Comment on above: Result Comment: The validity of the calculated GFR GFRAA in patients over 70 years has not been determined. Clinical correlation is essential. Performed By: #### L 505.5000, L501.9100, L500.4050, L100.0100, L300.3900 #### [facility] [address] [place], [address] ECRCL 81.97 ml/min Normal [facility] Comment on above: Performed By: #### L 505.5000, L501.9100, L500.4050, L100.0100, L300.3900 #### [facility] [address] [place], [address] EST GFR - AA 104 mL/min Normal >[address] [facility] Comment on above: Result Comment: Afri can [place] GFR Calc Performed By: #### L 505.5000, L501.9100, L500.4050, L100.0100, L300.3900 #### [facility] [address] [place], [address] GAP 14 Normal 5-[address] [facility] Comment on above: Performed By: #### L 505.5000, L501.9100, L500.4050, L100.0100, L300.3900 #### [facility] [address] [place], [address] GFR/1.73 sq M.predicted among non-blacks MDRD (S/P/Bld) [Vol rate/Area] 86 mL/min/{1.73_m2} Normal >[address] [facility] Comment on above: Result Comment: Non- GFR Calc Performed By: #### L 505.5000, L501.9100, L500.4050, L100.0100, L300.3900 #### [facility] [address] [place], [address] Globulin (S) [Mass/Vol] 3.9 g/dL Normal 2.2-4.[address] [facility] Comment on above: Performed By: #### L 505.5000, L501.9100, L500.4050, L100.0100, L300.3900 #### [facility] [address] [place], [address] Glucose [Mass/Vol] 99 mg/dL Normal 74-106 [facility] Comment on above: Performed By: #### L 505.5000, L501.9100, L500.4050, L100.0100, L300.3900 #### [facility] [address] [place], [address] Potassium [Moles/Vol] 3.3 mmol/L Low 3.5-5.1 [facility] Comment on above: Performed By: #### L 505.5000, L501.9100, L500.4050, L100.0100, L300.3900 #### [facility] [address] [place], [address] Sodium [Moles/Vol] 127 mmol/L Low 136-145 [facility] Comment on above: Performed By: #### L 505.5000, L501.9100, L500.4050, L100.0100, L300.3900 #### [facility] [address] [place], [address] T PROT 7.7 g/dL Normal 6.4-8.[address] [facility] Comment on above: Performed By: #### L 505.5000, L501.9100, L500.4050, L100.0100, L300.3900 #### [facility] [address] [place], [address] Urea nitrogen [Mass/Vol] 4 mg/dL Low 05-[address] [facility] Comment on above: Performed By: #### L 505.5000, L501.9100, L500.4050, L100.0100, L300.3900 #### [facility] [address] [place], [address] ECG 12-LEADon 04-05-2024 ECG 12-LEAD IMPRESSION: SINUS RHYTHM RBBB AND LAFB Compared to ECG 01/19/24 No significant change Electronically Signed On 04-05-2024 01:10:01 EDT by Rubén Hoang [facility] Emergency Department Summary on 04-05-2024 Emergency Department Summary [facility] Medical Records Department [address] [place] [address] Emergency Department Summary 04/05/24 MR#: [id number] Acct: [id number] Name: WOODY NI Rep #: [id number] : 1960 64 From: Eddy Haddad MD PCP: Dr. Jani Quezada MD Status:ADM IN Location: [address] History of Present Illness Chief Complaint: ETOH Intox Informant: patient and family Narrative Narrative: Patient here escorted by family member looking for alcohol detox. He wants to stop drinking states he has been trying, he has been through some other programs before but fell off the wagon. Usually drinks 18 beers per day does [...] as a result, he was seen in [facility] and had a CT scan showing no acute internal injuries and was discharged after his evaluation. No injuries or other new symptoms since then. Patient and family state that they talked with a help desk representative of the ramp program which is why they present here today. [facility] Medical History (Updated 04/05/24 @ 17:35 by [...] [facility] - [facility] 04-05-2024 H&P Exam - Hospitalist [facility] Medical Records Department [address] [place] [address] H P Exam - Hospitalist 04/05/24 1710 MR#: [id number] Acct: [id number] Name: WOODY NI Rep #: [id number] : 1960 64 From: Cody Parmar MD PCP: Dr. Jani Quezada MD Status:ADM IN Location: MS3 [id number] [facility] - General General Date of Admission: 04/05/24 [...] on last Thursday and he went to [facility]. There he was told to follow-up [...] labs drawn discussed in assessment and plan. [facility] Medical History Diabetic neuropathy Muscle weakness Personal [...] [Mass/Vol] 1.2 mg/dL Low 1.6-2.6 [facility] Comment on above: Performed By: #### L 501.5300, L501.5200 #### [facility] [address] [place], [place], [address] No Panel Informationon 04-05 P [place] 60 degrees [facility] [place] Interval 188 ms [facility] QRS [place] -49 degrees [facility] QRSD Interval 144 ms [facility] QT Interval 404 ms [facility] QTC Interval 503 ms [facility] T Wave [place] 11 degrees [facility] SINUS RHYTHM RBBB AND LAFB Compared to ECG 01/19/24 No significant change Electronically Signed On 04-05-2024 01:10:01 EDT by Rubén Hopkins D O - 04/05/2024 IMPRESSION: SINUS RHYTHM RBBB AND LAFB Compared to ECG 01/19/24 No significant change Electronically Signed On 04-05-2024 01:10:01 EDT by Rubén Hoang [facility] Phosphoruson 04-05-2024 Phosphate [Mass/Vol] 1.7 mg/dL Low 2.5-4.9 [facility] Comment on above: Performed By: #### L 501.5300, L501.5200 #### [facility] [address] [place], [address] Prothrombin Time w/INRon INR Coag (PPP) [Relative time] 1.1 {INR} Normal [facility] Comment on above: Performed By: #### L 505.5000, L501.9100, L500.4050, L100.0100, L300.3900 #### [facility] [address] [place], [address] PT Coag (PPP) [Time] 13.8 s Normal 11.7-14.9 [facility] Comment on above: Performed By: #### L 505.5000, L501.9100, L500.4050, L100.0100, L300.3900 #### [facility] [address] [place], [address] Sodium Levelon 04-05-2024 Sodium [Moles/Vol] 135 mmol/L Low 136-145 [facility] Comment on above: Performed By: #### L 501.5300, L501.5200 #### [facility] [address] [place], [address] Urine Drug Screen (VISTA)on 04-05-2024 AMPHETAMINES Negative Normal <1000 ng/mL [facility] Comment on above: Performed By: #### L 505.5000, L501.9100, L500.4050, L100.0100, L300.3900 #### [facility] [address] [place], [address] BARBITIURATES Negative Normal < 200 ng/mL [facility] Comment on above: Performed By: #### L 505.5000, L501.9100, L500.4050, L100.0100, L300.3900 #### [facility] [address] [place], [address] BENZODIAZIPINE Negative Normal < 200 ng/mL [facility] Comment on above: Performed By: #### L 505.5000, L501.9100, L500.4050, L100.0100, L300.3900 #### [facility] [address] [place], [address] COCAINE Negative Normal < 300 ng/mL [facility] Comment on above: Performed By: #### L 505.5000, L501.9100, L500.4050, L100.0100, L300.3900 #### [facility] [address] [place], [address] ECSTACY Negative Normal < 500 ng/mL [facility] Comment on above: Performed By: #### L 505.5000, L501.9100, L500.4050, L100.0100, L300.3900 #### [facility] [address] [place], [address] METHADONE Negative Normal < 300 ng/mL [facility] Comment on above: Performed By: #### L 505.5000, L501.9100, L500.4050, L100.0100, L300.3900 #### [facility] [address] [place], [address] OPIATES Negative Normal < 300 ng/mL [facility] Comment on above: Performed By: #### L 505.5000, L501.9100, L500.4050, L100.0100, L300.3900 #### [facility] [address] [place], [address] PCP Negative Normal < 25 ng/mL [facility] Comment on above: Performed By: #### L 505.5000, L501.9100, L500.4050, L100.0100, L300.3900 #### [facility] [address] [place], [address] THC Positive Abnormal < 50 ng/mL [facility] Comment on above: Performed By: #### L 505.5000, L501.9100, L500.4050, L100.0100, L300.3900 #### [facility] [address] [place], [address] VISTA UDS PH [address] [facility] Comment on above: Performed By: #### L 505.5000, L501.9100, L500.4050, L100.0100, L300.3900 #### [facility] [address] [place], [address] Vital signson 04-05-2024 Heart rate 93 /min bpm [facility] BETA HYDROXYBUTYRATEon 04-04 BETA HYDROXYBUTYRATE 2.29 mg/dL Normal 0.20-2.81 [facility] Comment on above: Performed By: #### L [id number], [id number], [id number], [id number] ####Steam Shovel Engineer: ARA WRIGHT ([phone])[facility] [place] [facility] (SWRLAB)[address] [place] [address] BLOOD GAS, VENOUS (SWR AND S HC)on 04-04-2024 BASE EXCESS (MMOL/L) IN VENOUS BLOOD -8.0 mmol/L Low -3.0-3.0 [facility] Comment on above: Performed By: #### L [id number] ####Steam Shovel Engineer: ARA WRIGHT ([id number])[facility] [place] [facility] (SWRLAB)[address] [place] [address] CARBON DIOXIDE (MM HG) IN VENOUS BLOOD 35 mm(Hg) Low 40-55 [facility] Comment on above: Performed By: #### L [id number] ####Steam Shovel Engineer: ARA WRIGHT ([phone])[facility] [place] [facility] (SWRLAB)[address] [place] [address] [place] CO2 [Moles/Vol] 19.0 mmol/L Low 24.0-28.0 [facility] Comment on above: Performed By: #### L [id number] ####Steam Shovel Engineer: ARA WRIGHT ([id number])[facility] [place] [facility] (SWRL[place])[address] [place] [address] [place] HCO3 (Bld) [Moles/Vol] 17.9 mmol/L Low 23.0-27.0 [facility] Comment on above: Performed By: #### L [id number] ####Steam Shovel Engineer: ARA WRIGHT ([id number])[facility]OS[facility]ITALOctavia [place] R[place] (SWRLAB)[address] [place] [address] OXYGEN (MM HG) IN VENOUS BLOOD 31 mm(Hg) Normal [facility] Comment on above: Performed By: #### L [id number] ####Steam Shovel Engineer: ARA WRIGHT ([id number])[facility]ITALOctavia [place] (SWRLAB)[address] [place] [address] OXYGEN SATURATION (%) IN VENOUS BLOOD 56.0 % Low 60.0-80.0 [facility] Comment on above: Performed By: #### L [id number] ####Steam Shovel Engineer: ARA WRIGHT ([phone])[facility]ITALOctavia [place] (SWRLAB)[address] [place] [address] pH (Bld) 7.323 [pH] Normal 7.310-7.410 [facility] Comment on above: Performed By: #### L [id number] ####Steam Shovel Engineer: ARA WRIGHT ([phone])[facility]ITALOctavia [place] (SWRLAB)[address] [place] [address] SOURCE OF OXYGEN Room Air Normal [facility] Comment on above: Performed By: #### L [id number] ####Steam Shovel Engineer: ARA WRIGHT ([phone])[facility]ITALOctavia [place] R[place] (SWRLAB)[address] [place] [address] [place] CBC W Auto Differential pane l (Bld)on 04-04-2024 Basophils (Bld) [#/Vol] 0.0 10*3/uL 0.0 - 0.2 10*3/uL [facility] Basophils/100 WBC (Bld) 0.6 % 0.0 - 2.0 % [facility] Eosinophils (Bld) [#/Vol] 0.0 10*3/uL 0.0 - 0.5 10*3/uL [facility] Eosinophils/100 WBC (Bld) 0.2 % 0.0 - 6.0 % [facility] Erythrocyte distribution width (RBC) [Ratio] 14.0 % 11.5 - 15.0 % [facility] Hematocrit (Bld) [Volume fraction] 31.7 % Low 40.0 - 52.0 % [facility] Hemoglobin (Bld) [Mass/Vol] 11.2 g/dL Low 13.0 - 18.0 g/dL [facility] Immature granulocytes (Bld) [#/Vol] 0.0 10*3/uL NINF - 0.1 10*3/uL [facility] Immature granulocytes/100 WBC (Bld) 0.2 % 0.0 - 2.0 % [facility] Interpretation and review of laboratory results Abnormal [facility] IPF 1 [facility] Lymphocytes (Bld) [#/Vol] 1.8 10*3/uL 1.0 - 4.3 10*3/uL [facility] Lymphocytes/100 WBC (Bld) 38.2 % 15.0 - 45.0 % [facility] MCH (RBC) [Entitic mass] 31.1 pg 26.0 - 34.0 pg [facility] MCHC (RBC) [Mass/Vol] 35.3 % 30.5 - 36.0 % [facility] MCV (RBC) [Entitic vol] 88.1 fL 77.0 - 99.0 fL [facility] Monocytes (Bld) [#/Vol] 0.5 10*3/uL 0.0 - 0.9 10*3/uL [facility] Monocytes/100 WBC (Bld) 10.3 % 5.0 - 13.0 % [facility] Neutrophils (Bld) [#/Vol] 2.4 10*3/uL 1.8 - 7.5 10*3/uL [facility] Neutrophils/100 WBC (Bld) 50.5 % 38.0 - 82.0 % [facility] Nucleated RBC/100 WBC (Bld) [Ratio] 0.0 % [facility] Platelet mean volume (Bld) [Entitic vol] 8.4 fL Low 9.0 - 12.7 fL [facility] Platelets (Bld) [#/Vol] 110 10*3/uL Low 140 - 440 10*3/uL [facility] RBC (Bld) [#/Vol] 3.60 10*6/uL Low 4.40 - 5.9 0 10*6/uL [facility] WBC (Bld) [#/Vol] 4.7 10*3/uL 3.6 - 10.7 10*3/uL [facility] CBC WITH AUTO DIFFERENTIALon 04-04-2024 Basophils (Bld) [#/Vol] 0.0 10*3/uL Normal 0.0-0.2 [facility] Comment on above: Performed By: #### L [id number] ####Steam Shovel Engineer: ARA WRIGHT ([id number])[facility]ITALA [place] [facility] (SWRLAB)[address] [place] [address] Basophils/100 WBC (Bld) 0.6 % Normal 0.0-2.0 [facility] Comment on above: Performed By: #### L [id number] ####Steam Shovel Engineer: ARA WRIGHT ([id number])[facility]ITALA [place] [facility] (SWRL[place])[address] [place] [address] [place] Eosinophils (Bld) [#/Vol] 0.0 10*3/uL Normal 0.0-0.5 [facility] Comment on above: Performed By: #### L [id number] ####Steam Shovel Engineer: ARA WRIGHT ([id number])[facility]ITALA [place] [facility] (SWRLAB)[address] [place] [address] [place] Eosinophils/100 WBC (Bld) 0.2 % Normal 0.0-6.0 [facility] Comment on above: Performed By: #### L [id number] ####Steam Shovel Engineer: ARA WRIGHT ([id number])[facility]ITALA [place] [facility] (SWRLAB)[address] [place] [address] Erythrocyte distribution width (RBC) [Ratio] 14.0 % Normal 11.5-15.0 [facility] Comment on above: Performed By: #### L [id number] ####Steam Shovel Engineer: ARA WRIGHT ([id number])HANNA [place] R[place] (SWRLAB)[address] [place] [address] Hematocrit (Bld) [Volume fraction] 31.7 % Low 40.0-52.0 [facility] Comment on above: Performed By: #### L [id number] ####Steam Shovel Engineer: ARA WRIGHT ([id number])[facility]ITALOctavia [place] (SWRLAB)[address] [place] [address] Hemoglobin (Bld) [Mass/Vol] 11.2 g/dL Low 13.0-18.0 [facility] Comment on above: Performed By: #### L [id number] ####Steam Shovel Engineer: ARA WRIGHT ([id number])[facility]OS[facility]ITALOctavia [place] (SWRLAB)[address] [place] [address] IMMATURE GRANS % 0.2 % Normal 0.0-2.0 [facility] Comment on above: Performed By: #### L [id number] ####Steam Shovel Engineer: ARA WRIGHT ([id number])[facility] HOS[facility]ITALOctavia [place] (SWRLAB)[address] [place] [address] IMMATURE GRANS ABSOLUTE 0.0 10*3/uL Normal <0.1 [facility] Comment on above: Performed By: #### L [id number] ####Steam Shovel Engineer: ARA WRIGHT ([phone])[facility]ITALOctavia [place] (SWRLAB)[address] [place] [address] [place] IPF 1 Normal [facility] Comment on above: Performed By: #### L [id number] ####Steam Shovel Engineer: ARA WRIGHT ([id number])[facility]ITALOctavia [place] (SWRLAB)[address] [place] [address] Lymphocytes (Bld) [#/Vol] 1.8 10*3/uL Normal 1.0-4.3 [facility] Comment on above: Performed By: #### L [id number] ####Steam Shovel Engineer: ARA WRIGHT ([id number])[employer] [place] (SWRLAB)[address] [place] [address] [place] Lymphocytes/100 WBC (Bld) 38.2 % Normal 15.0-45.0 [facility] Comment on above: Performed By: #### L [id number] ####Steam Shovel Engineer: ARA WRIGHT ([id number])[facility] HOS[facility]ITALOctavia [place] (SWRLAB)[address] [place] [address] MCH (RBC) [Entitic mass] 31.1 pg Normal 26.0-34.0 [facility] Comment on above: Performed By: #### L [id number] ####Steam Shovel Engineer: ARA WRIGHT ([id number])[facility] HOSPITALOctavia [place] (SWRLAB)[address] [place] [address] MCHC 35.3 % Normal 30.5-36.0 [facility] Comment on above: Performed By: #### L [id number] ####Steam Shovel Engineer: ARA WRIGHT ([id number])[facility]ITALOctavia [place] (SWRLAB)[address] [place] [address] MCV (RBC) [Entitic vol] 88.1 fL Normal 77.0-99.0 [facility] Comment on above: Performed By: #### L [id number] ####Steam Shovel Engineer: ARA WRIGHT ([id number])[facility]ITALOctavia [place] (SWRLAB)[address] [place] [address] [place] Monocytes (Bld) [#/Vol] 0.5 10*3/uL Normal 0.0-0.9 [facility] Comment on above: Performed By: #### L [id number] ####Steam Shovel Engineer: ARA WRIGHT ([id number])[facility]ITALOctavia [place] (SWRLAB)[address] [place] [address] [place] Monocytes/100 WBC (Bld) 10.3 % Normal 5.0-13.0 [facility] Comment on above: Performed By: #### L [id number] ####Steam Shovel Engineer: ARA WRIGHT ([id number])[facility]OS[facility]ITALOctavia [place] (SWRLAB)[address] [place] [address] [place] NEUTROPHILS ABSOLUTE 2.4 10*3/uL Normal 1.8-7.5 [facility] Comment on above: Performed By: #### L [id number] ####Steam Shovel Engineer: ARA WRIGHT ([id number])[facility] HOS[facility]ITALOctavia [place] (SWRLAB)[address] [place] [address] Neutrophils/100 WBC (Bld) 50.5 % Normal 38.0-82.0 [facility] Comment on above: Performed By: #### L [id number] ####Steam Shovel Engineer: ARA WRIGHT ([id number])[facility]OS[facility]ITALOctavia [place] (SWRLAB)[address] [place] [address] NRBC 0.0 /100 WBCs Normal 0.0-2.0 [facility] Comment on above: Performed By: #### L [id number] ####Steam Shovel Engineer: ARA WRIGHT ([id number])[facility]ITALOctavia [place] (SWRLAB)[address] [place] [address] Platelet mean volume (Bld) [Entitic vol] 8.4 fL Low 9.0-12.7 [facility] Comment on above: Performed By: #### L [id number] ####Steam Shovel Engineer: ARA WRIGHT ([id number])[facility]OS[facility]ITALOctavia [place] (SWRLAB)[address] [place] [address] [place] Platelets (Bld) [#/Vol] 110 10*3/uL Low 140-440 [facility] Comment on above: Performed By: #### L [id number] ####Steam Shovel Engineer: ARA WRIGHT ([id number])[facility]OSPITALOctavia [place] (SWRLAB)[address] [place] [address] [place] RBC (Bld) [#/Vol] 3.60 10*6/uL Low 4.40-5.90 [facility] Comment on above: Performed By: #### L [id number] ####Steam Shovel Engineer: ARA WRIGHT ([id number])[facility] HOSPITALOctavia GUSTAFSONTMAN (SWRLAB)[address] WBC (Bld) [#/Vol] 4.7 10*3/uL Normal 3.6-10.7 [facility] Comment on above: Performed By: #### L [id number] ####Steam Shovel Engineer: ARA WRIGHT ([phone])[facility] HOSPITALOctavia GUSTAFSONTMAN (SWRLAB)[address] COMPREHENSIVE METABOLIC PANE Peter 04-04-2024 Albumin [Mass/Vol] 4.2 g/dL Normal 3.5-5.0 [facility] Comment on above: Performed By: #### L [id number], [id number], [id number], [id number] ####Steam Shovel Engineer: ARA WRIGHT ([id number])[facility] HOSPITALOctavia GUSTAFSONTMAN (SWRLAB)[address] [place] [address] ALP [Catalytic activity/Vol] 67 U/L Normal 38-126 [facility] Comment on above: Performed By: #### L [id number], [id number], [id number], LAB17 ####Steam Shovel Engineer: ARA WRIGHT ([id number])[facility] HOSPITALOctavia GUSTAFSONTMAN (SWRLAB)[address] [place] [address] ALT [Catalytic activity/Vol] 17 U/L Normal 0-49 [facility] Comment on above: Performed By: #### L AB46, [id number], [id number], LAB17 ####Steam Shovel Engineer: ARA WRIGHT ([id number])[facility] HOSPITALOctavia GUSTAFSONTMAN (SWRLAB)[address] Anion gap [Moles/Vol] 14 mmol/L High 3-13 [facility] Comment on above: Performed By: #### L [id number], [id number], [id number], LAB17 ####Steam Shovel Engineer: ARA WRIGHT ([id number])[facility] HOSPITALOctavia ORTEGADAKOTA RITTMAN (SWRLAB)[address] [place] [address] [place] AST [Catalytic activity/Vol] 39 U/L Normal 15-46 [facility] Comment on above: Performed By: #### L AB46, [id number], [id number], LAB17 ####Steam Shovel Engineer: ARA WRIGHT ([id number])[facility] HOS[facility]ITALA [place] [facility] (SWRLAB)[address] [place] [address] [place] Bilirubin [Mass/Vol] 1.0 mg/dL Normal 0.2-1.3 [facility] Comment on above: Performed By: #### Popeye [id number], [id number], [id number], LAB17 ####Steam Shovel Engineer: ARA WRIGHT ([id number])[facility] HOS[facility]ITALA [place] [facility] (SWRLAB)[address] [place] [address] [place] Calcium [Mass/Vol] 8.8 mg/dL Normal 8.4-10.4 [facility] Comment on above: Performed By: #### L AB46, [id number], [id number], LAB17 ####Steam Shovel Engineer: ARA WRIGHT ([id number])[facility] HOS[facility]ITALA [place] [facility] (SWRLAB)[address] [place] [address] [place] Chloride [Moles/Vol] 98 mmol/L Normal 98-107 [facility] Comment on above: Performed By: #### L AB46, [id number], [id number], LAB17 ####Steam Shovel Engineer: ARA WRIGHT ([id number])[facility]ITALA [place] [facility] (SWRLAB)[address] [place] [address] [place] CO2 [Moles/Vol] 16 mmol/L Low 22-30 [facility] Comment on above: Performed By: #### L AB46, [id number], [id number], LAB17 ####Steam Shovel Engineer: ARA WRIGHT ([id number])[facility]ITALA [place] [facility] (SWRLAB)[address] [place] [address] [place] Creatinine [Mass/Vol] 0.92 mg/dL Normal 0.66-1.25 [facility] Comment on above: Performed By: #### L AB46, [id number], [id number], LAB17 ####Steam Shovel Engineer: ARA WRIGHT ([id number])[facility] HOSPITALOctavia [place] (SWRLAB)[address] [place] [address] GLOMERULAR FILTRATION RATE ML/MIN/1.73 SQ M.PREDICTED >90.0 Normal >60.0 [facility] Comment on above: Result Comment: Calc ulation based on the Chronic Kidney Disease Epidemiology Collaboration (CKD-EPI) equation refit without adjustment for race Performed By: #### L AB46, [id number], [id number], LAB17 ####Steam Shovel Engineer: ARA WRIGHT ([id number])[facility] HOSPITALOctavia [place] (SWRLAB)[address] [place] [address] [place] Glucose [Mass/Vol] 97 mg/dL Normal 70-100 [facility] Comment on above: Performed By: #### L AB46, [id number], [id number], LAB17 ####Steam Shovel Engineer: ARA WRIGHT ([id number])[facility] HOSPITALOctavia [place] (SWRLAB)[address] [place] [address] [place] Potassium [Moles/Vol] 3.5 mmol/L Normal 3.5-5.1 [facility] Comment on above: Performed By: #### Popeye AB46, [id number], [id number], LAB17 ####Steam Shovel Engineer: ARA WRIGHT ([phone])[facility] HOSPITALOctavia [place] R[place] (SWRLAB)[address] [place] [address] [place] Protein [Mass/Vol] 7.2 g/dL Normal 6.3-8.2 [facility] Comment on above: Performed By: #### L AB46, [id number], [id number], LAB17 ####Steam Shovel Engineer: ARA WRIGHT ([id number])[facility] HOSPITALOctavia [place] R[place] (SWRLAB)[address] [place] [address] [place] Sodium [Moles/Vol] 128 mmol/L Low 135-145 [facility] Comment on above: Performed By: #### L AB46, [id number], [id number], LAB17 ####Steam Shovel Engineer: ARA WRIGHT ([phone])[facility] HOS[facility]ITALA [place] RITTMAN (SWRLAB)[address] [place] [address] Urea nitrogen [Mass/Vol] 8 mg/dL Low 9-20 [facility] Comment on above: Performed By: #### L AB46, [id number], [id number], LAB17 ####Steam Shovel Engineer: ARA WRIGHT ([id number])[facility] RITTMAN (SWRLAB)[address] [place] [address] CT CERVICAL SPINE WO IV CONT RASTon 04-04-2024 CT CERVICAL SPINE WO IV CONTRAST Normal [facility] CT Cervical spine WO contras ton 04-04-2024 [facility] 1960 [id number] Exam Date/Time: 04/04/2024 16:40 Procedure: CT CERVICAL [...] noncontrast study. Other: Lung apices are unremarkable. [facility] Don Melara MD - 04/04/2024 Patient Name: WOODY NI : 1960 Exam Date/Time: 04/04/2024 16:40 Procedure: CT CERVICAL [...] Electronically Signed Date/Time: 04/04/2024 4:53 PM EDT [facility] Radiology Study observation (narrative) [facility] CT HEAD WO IV CONTRASTon CT HEAD WO IV CONTRAST Normal [facility] CT Head WO contraston 2023 Patient Name: [...] noncontrast study. Other: Lung apices are unremarkable. [facility] Don Melara MD - 04/04/2024 Patient Name: WOODY NI : 1960 [facility]#: [id number] Exam Date/Time: 04/04/2024 16:40 Procedure: CT HEAD [...] Electronically Signed Date/Time: 04/04/2024 4:53 PM EDT [facility] Radiology Study observation (narrative) [facility] Comprehensive metabolic 1998 panelon 04-04-2024 Albumin [Mass/Vol] 4.2 g/dL 3.5 - 5.0 g/dL [facility] ALP [Catalytic activity/Vol] 67 U/L 38 - 126 U/L [facility] ALT [Catalytic activity/Vol] 17 U/L 0 - 49 U/L [facility] Anion gap [Moles/Vol] 14 mmol/L High 3 - 13 mmol/L [facility] AST [Catalytic activity/Vol] 39 U/L 15 - 46 U/L [facility] Bilirubin [Mass/Vol] 1.0 mg/dL 0.2 - 1 .3 mg/dL [facility] Calcium [Mass/Vol] 8.8 mg/dL 8.4 - 10. 4 mg/dL [facility] Chloride [Moles/Vol] 98 mmol/L 98 - 10 7 mmol/L [facility] CO2 [Moles/Vol] 16 mmol/L Low 22 - 30 mmol/L [facility] Creatinine [Mass/Vol] 0.92 mg/dL 0.66 - 1.25 mg/dL [facility] GFR/1.73 sq M.predicted MDRD (S/P/Bld) [Vol rate/Area] - PINF [facility] Comment on above: Calculation based on the Chronic Kidney Disease Epidemiology Collaboration (CKD-EPI) equation refit without adjustment for race Glucose [Mass/Vol] 97 mg/dL 70 - 100 mg/dL [facility] Potassium [Moles/Vol] 3.5 mmol/L 3.5 - 5.1 mmol/L [facility] Protein [Mass/Vol] 7.2 g/dL 6.3 - 8.2 g/dL [facility] Sodium [Moles/Vol] 128 mmol/L Low 135 - 145 mmol/L [facility] Urea nitrogen [Mass/Vol] 8 mg/dL Low 9 - 20 mg/dL [facility] ED Nursing Noteon 04-04-2024 ED Nursing Note Warm blanket provide d to patient per request. Martha Okeefe RN 04/04/24 1630 Normal [facility] ED Nursing Note Normal [facility] ED Provider Noteon ED Provider Note Normal [facility] ETHANOLon 04-04-2024 ETHANOL IN SER/PLAS 0.201 g/dL High 0.000-0.010 [facility] Comment on above: Result Comment: CLAIRE Buitrago COMMENTS:NOTE: This result is for medical treatment only. Analysis performed using non-forensic procedures. Performed By: #### L AB46, [id number], [id number], LAB17 ####Steam Shovel Engineer: ARA WRIGHT ([phone])[facility] (RLAB)[address] [place] [address] Ethanol (Bld) [Mass/Vol]on 0 04-04-2024 Ethanol [Mass/Vol] 0.201 g/dL High 0.000 - 0.010 g/dL [facility] LACTIC ACID WITH REFLEXon Lactate [Moles/Vol] 3.8 mmol/L High 0.7-2.0 [facility] Comment on above: Performed By: #### L [id number] ####Steam Shovel Engineer: ARA WRIGHT ([id number])[facility] [employer] (SWRLAB)[address] [place] [address] Laboratory - Chemistry and C hemistry - challengeon 04-04-2024 Lactate [Moles/Vol] 3.8 mmol/L High 0.7 - 2. 0 mmol/L [facility] Beta hydroxybutyrate [Mass/Vol] 2.29 mg/dL 0.20 - 2.81 mg/dL [facility] Troponin I.cardiac [Mass/Vol] ng/mL NINF - 0.034 ng/mL [facility] Laboratory - Chemistry and C hemistry - challengeOrdered By: Perla Garcia on 04-04-2024 CO2 [Moles/Vol] 19.0 mmol/L Low 24.0 - 28.0 mmol/L [facility] HCO3 (Bld) [Moles/Vol] 17.9 mmol/L Low 23.0 - 27.0 mmol/L [facility] Oxygen (Bld) [Partial pressure] 31 mm[Hg] mm(Hg) [facility] pH (Bld) 7.323 [pH] 7.310 - 7.410 [facility] No Panel Informationon 04-04 Interpretation and review of laboratory results Abnormal [facility] Interpretation and review of laboratory results Normal [facility] Diminished cerebral volume and evidence of chronic microvascular ischemic change without acute intracranial abnormality. Focal encephalomalacia of the anterior left temporal lobe suggesting old ischemic change or infarct. No acute abnormality identified throughout the cervical spine. Multilevel degenerative changes of the cervical spine as discussed. Report Dictated on Electronically Signed By: Don Melara MD Electronically Signed Date/Time: 04/04/2024 4:53 PM T [facility] Interpretation and review of laboratory results Abnormal [facility] No Panel InformationOrdered By: Perla Garcia on 04-04-2024 BASE EXCESS -8.0 mmol/L Low -3.0 - 3.0 mmol/L [facility] Interpretation and review of laboratory results Abnormal [facility] pCO2 35 Low [facility] Source Of Oxygen Room Air [facility] No Panel InformationOrdered By: Don Melara on 04-04-2024 [facility] [employer] Work Phone: TROPONIN, WITH SERIAL REFLEX on 04-04-2024 Troponin I.cardiac [Mass/Vol] ng/mL Normal <0.034 [facility] Comment on above: Result Comment: CLAIRE Buitrago COMMENTS:Patients with high levels of Biotin oral intake (ie >5 mg/day) may have falsely decreased Troponin levels. Performed By: #### L AB46, [id number], [id number], [id number] ####Steam Shovel Engineer: ARA WRIGHT ([phone])[facility]ISH HOSPITALOctavia CEDENO ([facility])[address] [place] [address] Troponin I.cardiac [Mass/Vol ]on 04-04-2024 Interpretation and review of laboratory results Normal [facility] Patients with high l evels of Biotin oral intake (ie >5 mg/day) may have falsely decreased Troponin levels. [facility] Vital signsOrdered By: Raz Garcia on 04-04-2024 Oxygen saturation in Blood 56.0 % Low 60.0 - 80.0 % [facility] XR Chest Single viewon 04-04 1. No evidence of an acute cardiopulmonary process. Report Dictated on Electronically Signed By: Tom Orourke MD Electronically Signed Date/Time: 04/04/2024 6:12 PM EDT [facility] Patient Name: WOODY NI : 1960 [...] bones and soft tissues are grossly unremarkable. [facility] Tom Orourke MD - 04/04/2024 Patient [...] Electronically Signed Date/Time: 04/04/2024 6:12 PM EDT [facility] Radiology Study observation (narrative) [facility] XR Chest Single viewOrdered By: Tom Orourke on 04-04-2024 [facility] [employer] Work Phone: Acetaminophen [Mass/Vol]on 0 03-09-2024 Interpretation and review of laboratory results Abnormal [facility] ED Nursing Noteon 03-09-2024 ED Nursing Note Called pt home imelda buitrago and notified family that pt left his glasses and I will be leaving them with protective services Anna Ramey RN 03/09/24 1546 Normal [facility] ED Nursing Note Normal [facility] ED Nursing Note Received call back f [place] [employer] that pt home is secured. Pt still wanting to leave. Per Dr. Stevens pt is OK to leave AMA. Pt ride called. Anna Ramey RN 03/09/24 1251 Normal [facility] ED Nursing Note Normal [facility] Laboratory - Chemistry and C hemistry - challengeon 03-09-2024 Glucose [Mass/Vol] 81 mg/dL 70 - 100 mg/dL [facility] Beta hydroxybutyrate [Mass/Vol] 0.81 mg/dL 0.20 - 2.81 mg/dL [facility] Base excess Calc (BldV) [Moles/Vol] -6.6000 mmol/L Low -3 - 3 mmol/L [facility] CO2 (BldV) [Partial pressure] 27.6 mm[Hg] Low [facility] HCO3 (Bld) [Moles/Vol] 16.8 mmol/L Low 23.0 - 27.0 mmol/L [facility] Oxygen (BldV) [Partial pressure] 60.7 mm[Hg] mm Hg [facility] pH (BldV) 7.392 [pH] 7.330 - 7.430 pH [facility] Laboratory - Drug toxicology on 03-09-2024 Acetaminophen [Mass/Vol] ug/mL Low 10.0 - 30.0 ug/mL [facility] Salicylates [Mass/Vol] mg/dL NINF - 20.0 mg/dL [facility] No Panel Informationon 03-09 Interpretation and review of laboratory results Normal [facility] Performed by: [facility], [address] [place] [id number] CLIA ID: [id number] [facility] Interpretation and review of laboratory results Normal [facility] FIO2 [facility] Interpretation and review of laboratory results Abnormal [facility] Performed by: [facility], [address] [address] CLIA ID: [id number] [facility] Radiology Study observation (narrative) [facility] No Panel InformationOrdered By: Steve Rose on 03-09-2024 ACETONE, SERUM Not detected Toxic > 20 Reporting Limit 5 mg/dL mg/dL [facility] ETHANOL, SERUM 0.203 Reporting Limit 0.01 g/dL g/dL (W/V) [facility] ISOPROPANOL, SERUM Not detected Toxic > 2 0 Reporting Limit 5 mg/dL mg/dL [facility] METHANOL, SERUM Not detected Toxic > 20 mg/dL, Reporting Limit 5 mg/dL mg/dL [facility] Progress Noteon 03-09-2024 Progress Note Normal [facility] Salicylates [Mass/Vol]on Interpretation and review of laboratory results Normal [facility] VOLATILE PANEL,SERUMon 03-09 ACETONE, SERUM-CAT LIST Not detected Normal Toxic > 20 Reporting Limit 5 mg/dL [facility] Comment on above: Performed By: #### L [id number] ####Steam Shovel Engineer: ARA WRIGHT ([phone])[address] ETHANOL, SERUM-NUMERIC 0.203 g/dL (W/V) Normal R eporting Limit 0.01 g/dL [facility] Comment on above: Performed By: #### L [id number] ####Steam Shovel Engineer: ARA WRIGHT ([phone])[facility])[address] [place] [address] ISOPROPANOL, SERUM-CAT LIST Not detected Normal Toxic > 20 Reporting Limit 5 mg/dL [facility] Comment on above: Result Comment: ORDE R COMMENTS:NOTE:These results are for medical treatment only. Analysis performed using non-forensic procedures.This test has not been cleared by the US Food and Drug Administration (FDA). The FDA has determined that such clearance or approval is not necessary. The performance chararcteristics have been determined by the clinical laboratories of [facility]. Performed By: #### L [id number] ####Steam Shovel Engineer: ARA WRIGHT ([phone])[facility] ([facility])[address] [place] [address] METHANOL, SERUM-CAT LIST Not detected Normal Toxic > 20 mg/dL, Reporting Limit 5 mg/dL [facility] Comment on above: Performed By: #### L [id number] ####Steam Shovel Engineer: ARA WRIGHT ([id number])[facility] ([facility])[address] [place] [address] Vital signson 03-09-2024 Oxygen saturation in Venous blood 91.2 % [facility] Comment on above: Performed by CLIA ID : [id number] [place], [place] ?Device: [id number] Violin Teacher ID: [id number] ACETAMINOPHEN LEVELon 2023 Acetaminophen [Mass/Vol] ug/mL Low 10.0-30.0 [facility] Comment on above: Performed By: #### L AB34, LAB43, LAB17, [id number], LAB46 ####Steam Shovel Engineer: TRESSA SANTIZO ([phone])[facility] ([facility])[address] [place] [address] BETA HYDROXYBUTYRATEon 03-08 BETA HYDROXYBUTYRATE 0.81 mg/dL Normal 0.20-2.81 [facility] Comment on above: Performed By: #### L AB34, LAB43, LAB17, [id number], LAB46 ####Steam Shovel Engineer: TRESSA SANTIZO ([id number])[facility] ([facility])[address] [place] [address] CBC W Auto Differential pane l (Bld)Ordered By: Alen Beavers on 03-08-2024 Basophils (Bld) [#/Vol] 0.0 10*3/uL 0.0 - 0.2 10*3/uL [facility] Basophils/100 WBC (Bld) 0.1 % 0.0 - 2.0 % [facility] Eosinophils (Bld) [#/Vol] 0.0 10*3/uL 0.0 - 0.5 10*3/uL [facility] Eosinophils/100 WBC (Bld) 0.0 % 0.0 - 6.0 % [facility] Erythrocyte distribution width (RBC) [Ratio] 11.9 % 11.5 - 15.0 % [facility] Hematocrit (Bld) [Volume fraction] 37.0 % Low 40.0 - 52.0 % [facility] Hemoglobin (Bld) [Mass/Vol] 13.2 g/dL 13.0 - 18.0 g/dL [facility] Immature granulocytes (Bld) [#/Vol] 0.2 10*3/uL High NINF - 0.1 10*3/uL [facility] Immature granulocytes/100 WBC (Bld) 2.2 % High 0.0 - 2.0 % [facility] Interpretation and review of laboratory results Abnormal [facility] Lymphocytes (Bld) [#/Vol] 1.0 10*3/uL 1.0 - 4.3 10*3/uL [facility] Lymphocytes/100 WBC (Bld) 11.6 % Low 15.0 - 45.0 % [facility] MCH (RBC) [Entitic mass] 30.6 pg 26.0 - 34.0 pg [facility] MCHC (RBC) [Mass/Vol] 35.7 % 30.5 - 36.0 % [facility] MCV (RBC) [Entitic vol] 85.6 fL 77.0 - 99.0 fL [facility] Monocytes (Bld) [#/Vol] 0.1 10*3/uL 0.0 - 0.9 10*3/uL [facility] Monocytes/100 WBC (Bld) 1.2 % Low 5.0 - 13.0 % [facility] Neutrophils (Bld) [#/Vol] 7.6 10*3/uL High 1.8 - 7.5 10*3/uL [facility] Neutrophils/100 WBC (Bld) 84.9 % High 38.0 - 82.0 % [facility] Nucleated RBC/100 WBC (Bld) [Ratio] 0.0 % [facility] Platelet mean volume (Bld) [Entitic vol] 9.1 fL 9.0 - 12.7 fL [facility] Platelets (Bld) [#/Vol] 204 10*3/uL 140 - 440 10*3/uL [facility] RBC (Bld) [#/Vol] 4.32 10*6/uL Low 4.40 - 5.9 0 10*6/uL [facility] WBC (Bld) [#/Vol] 9.0 10*3/uL 3.6 - 10.7 10*3/uL [facility] CBC WITH AUTO DIFFERENTIALon 03-08-2024 Basophils (Bld) [#/Vol] 0.0 10*3/uL Normal 0.0-0.2 [facility] Comment on above: Performed By: #### L [id number] ####Steam Shovel Engineer: TRESSA SANTIZO ([phone])[facility] [place] ([facility])[address] Basophils/100 WBC (Bld) 0.1 % Normal 0.0-2.0 [facility] Comment on above: Performed By: #### L [id number] ####Steam Shovel Engineer: TRESSA SANTIZO ([phone])[facility] ([facility])[address] [place] [address] Eosinophils (Bld) [#/Vol] 0.0 10*3/uL Normal 0.0-0.5 [facility] Comment on above: Performed By: #### L [id number] ####Steam Shovel Engineer: TRESSA SANTIZO ([phone])[facility] [place] ([facility])[address] [place] [address] Eosinophils/100 WBC (Bld) 0.0 % Normal 0.0-6.0 [facility] Comment on above: Performed By: #### L [id number] ####Steam Shovel Engineer: TRESSA SANTIZO ([phone])[facility] [place] ([facility])[address] [place] [address] Erythrocyte distribution width (RBC) [Ratio] 11.9 % Normal 11.5-15.0 [facility] Comment on above: Performed By: #### L [id number] ####Steam Shovel Engineer: TRESSA SANTIZO ([phone])[facility] [place] ([facility])[address] [place] [address] Hematocrit (Bld) [Volume fraction] 37.0 % Low 40.0-52.0 [facility] Comment on above: Performed By: #### L [id number] ####Steam Shovel Engineer: TRESSA SANTIZO ([id number])[facility]ITAL[facility] [place] ([facility])[address] Hemoglobin (Bld) [Mass/Vol] 13.2 g/dL Normal 13.0-18.0 [facility] Comment on above: Performed By: #### L [id number] ####Steam Shovel Engineer: TRESSA SANTIZO ([id number])[facility]ITAL[facility] [place] ([facility])[address] IMMATURE GRANS % 2.2 % High 0.0-2.0 [facility] Comment on above: Performed By: #### L [id number] ####Steam Shovel Engineer: TRESSA SANTIZO ([phone])[facility] ([facility])[address] [place] [address] IMMATURE GRANS ABSOLUTE 0.2 10*3/uL High <0.1 [facility] Comment on above: Performed By: #### L [id number] ####Steam Shovel Engineer: TRESSA SANTIZO ([phone])[facility] [place] ([facility])[address] [place] [address] Lymphocytes (Bld) [#/Vol] 1.0 10*3/uL Normal 1.0-4.3 [facility] Comment on above: Performed By: #### L [id number] ####Steam Shovel Engineer: TRESSA SANTIZO ([phone])[facility]ITAL[facility] [place] ([facility])[address] Lymphocytes/100 WBC (Bld) 11.6 % Low 15.0-45.0 [facility] Comment on above: Performed By: #### L [id number] ####Steam Shovel Engineer: TRESSA SANTIZO ([phone])[facility] ([facility])[address] [place] [address] MCH (RBC) [Entitic mass] 30.6 pg Normal 26.0-34.0 [facility] Comment on above: Performed By: #### L [id number] ####Steam Shovel Engineer: TRESSA JONESScarJAVY ([phone])[facility] [facility] ([facility])[address] MCHC 35.7 % Normal 30.5-36.0 [facility] Comment on above: Performed By: #### L [id number] ####Steam Shovel Engineer: TRESSA DARLYN ([phone])[facility] [place] ([facility])[address] MCV (RBC) [Entitic vol] 85.6 fL Normal 77.0-99.0 [facility] Comment on above: Performed By: #### L [id number] ####Steam Shovel Engineer: TRESSA DARLYN ([id number])[facility]ITALOct[facility] [place] ([facility])[address] [place] [address] Monocytes (Bld) [#/Vol] 0.1 10*3/uL Normal 0.0-0.9 [facility] Comment on above: Performed By: #### L [id number] ####Steam Shovel Engineer: TRESSA JONESScarJAVY ([phone])[facility]ITALOct[facility] [place] ([facility])[address] Monocytes/100 WBC (Bld) 1.2 % Low 5.0-13.0 [facility] Comment on above: Performed By: #### L [id number] ####Steam Shovel Engineer: TRESSA CHRISJAVY ([id number])[facility]ITALOct[facility] [place] ([facility])[address] NEUTROPHILS ABSOLUTE 7.6 10*3/uL High 1.8-7.5 [facility] Comment on above: Performed By: #### L [id number] ####Steam Shovel Engineer: TRESSA CHRISJAVY ([phone])[facility] [place] ([facility])[address] Neutrophils/100 WBC (Bld) 84.9 % High 38.0-82.0 [facility] Comment on above: Performed By: #### L [id number] ####Steam Shovel Engineer: TRESSA SANTIZO ([phone])[facility] [place] ([facility])[address] NRBC 0.0 /100 WBCs Normal 0.0-2.0 [facility] Comment on above: Performed By: #### L [id number] ####Steam Shovel Engineer: TRESSA SANTIZO ([phone])[facility] [place] ([facility])[address] Platelet mean volume (Bld) [Entitic vol] 9.1 fL Normal 9.0-12.7 [facility] Comment on above: Performed By: #### L [id number] ####Steam Shovel Engineer: TRESSA SANTIZO ([phone])[facility] [place] ([facility])[address] Platelets (Bld) [#/Vol] 204 10*3/uL Normal 140-440 [facility] Comment on above: Performed By: #### L [id number] ####Steam Shovel Engineer: TRESSA SANTIZO ([phone])[facility] [place] ([facility])[address] RBC (Bld) [#/Vol] 4.32 10*6/uL Low 4.40-5.90 [facility] Comment on above: Performed By: #### L [id number] ####Steam Shovel Engineer: TRESSA SANTIZO ([phone])[facility] [place] ([facility])[address] WBC (Bld) [#/Vol] 9.0 10*3/uL Normal 3.6-10.7 [facility] Comment on above: Performed By: #### L [id number] ####Steam Shovel Engineer: TRESSA SANTIZO ([id number])[facility] [place] ([facility])[address] COMPREHENSIVE METABOLIC PANE Peter 03-08-2024 Albumin [Mass/Vol] 4.2 g/dL Normal 3.5-5.0 [facility] Comment on above: Performed By: #### L AB34, LAB43, LAB17, [id number], LAB46 ####Steam Shovel Engineer: TRESSA SANTIZO ([phone])[facility] ([facility])[address] ALP [Catalytic activity/Vol] 49 U/L Normal 38-126 [facility] Comment on above: Performed By: #### L AB34, LAB43, LAB17, [id number], LAB46 ####Steam Shovel Engineer: TRESSA SANTIZO ([phone])[facility] ([facility])[address] ALT [Catalytic activity/Vol] 33 U/L Normal 0-49 [facility] Comment on above: Performed By: #### L AB34, LAB43, LAB17, [id number], LAB46 ####Steam Shovel Engineer: TRESSA SANTIZO ([phone])[facility] ([facility])[address] Anion gap [Moles/Vol] 19 mmol/L High 3-13 [facility] Comment on above: Performed By: #### L AB34, LAB43, LAB17, [id number], LAB46 ####Steam Shovel Engineer: TRESSA SANTIZO ([phone])[facility] ([facility])[address] AST [Catalytic activity/Vol] 35 U/L Normal 15-46 [facility] Comment on above: Performed By: #### L AB34, LAB43, LAB17, [id number], LAB46 ####Steam Shovel Engineer: TRESSA SANTIZO ([phone])[facility] ([facility])[address] Bilirubin [Mass/Vol] 0.9 mg/dL Normal 0.2-1.3 [facility] Comment on above: Performed By: #### L AB34, LAB43, LAB17, [id number], LAB46 ####Steam Shovel Engineer: TRESSA SANTIZO ([phone])[facility] [place] ([facility])[address] Calcium [Mass/Vol] 8.7 mg/dL Normal 8.4-10.4 [facility] Comment on above: Performed By: #### L AB34, LAB43, LAB17, [id number], LAB46 ####Steam Shovel Engineer: TRESSA SANTIZO ([phone])[facility] ([facility])[address] Chloride [Moles/Vol] 96 mmol/L Low 98-107 [facility] Comment on above: Performed By: #### L AB34, LAB43, LAB17, [id number], LAB46 ####Steam Shovel Engineer: TRESSA SANTIZO ([id number])[facility] ([facility])[address] CO2 [Moles/Vol] 14 mmol/L Low 22-30 [facility] Comment on above: Performed By: #### L AB34, LAB43, LAB17, [id number], LAB46 ####Steam Shovel Engineer: TRESSA SANTIZO ([id number])[facility] ([facility])[address] Creatinine [Mass/Vol] 0.89 mg/dL Normal 0.66-1.25 [facility] Comment on above: Performed By: #### L AB34, LAB43, LAB17, [id number], LAB46 ####Steam Shovel Engineer: TRESSA SANTIZO ([phone])[facility] ([facility])[address] GLOMERULAR FILTRATION RATE ML/MIN/1.73 SQ M.PREDICTED >90.0 Normal >60.0 [facility] Comment on above: Result Comment: Calc ulation based on the Chronic Kidney Disease Epidemiology Collaboration (CKD-EPI) equation refit without adjustment for race Performed By: #### L AB34, LAB43, LAB17, [id number], LAB46 ####Steam Shovel Engineer: TRESSA SANTIZO ([phone])[facility] ([facility])[address] Glucose [Mass/Vol] 138 mg/dL High 70-100 [facility] Comment on above: Performed By: #### L AB34, LAB43, LAB17, [id number], LAB46 ####Steam Shovel Engineer: TRESSA SANTIZO ([phone])[facility] ([facility])[address] Potassium [Moles/Vol] 4.4 mmol/L Normal 3.5-5.1 [facility] Comment on above: Performed By: #### L AB34, LAB43, LAB17, [id number], LAB46 ####Steam Shovel Engineer: TRESSA SANTIZO ([id number])[facility] ([facility])[address] Protein [Mass/Vol] 7.1 g/dL Normal 6.3-8.2 [facility] Comment on above: Performed By: #### L AB34, LAB43, LAB17, [id number], LAB46 ####Steam Shovel Engineer: TRESSA SANTIZO ([phone])[facility] ([facility])[address] Sodium [Moles/Vol] 130 mmol/L Low 135-145 [facility] Comment on above: Performed By: #### L AB34, LAB43, LAB17, [id number], LAB46 ####Steam Shovel Engineer: TRESSA SANTIZO ([phone])[facility] ([facility])[address] Urea nitrogen [Mass/Vol] 16 mg/dL Normal 9-20 [facility] Comment on above: Performed By: #### L AB34, LAB43, LAB17, [id number], LAB46 ####Steam Shovel Engineer: TRESSA SANTIZO ([phone])[facility] ([facility])[address] Comprehensive metabolic 1998 panelon 03-08-2024 Albumin [Mass/Vol] 4.2 g/dL 3.5 - 5.0 g/dL [facility] ALP [Catalytic activity/Vol] 49 U/L 38 - 126 U/L [facility] ALT [Catalytic activity/Vol] 33 U/L 0 - 49 U/L [facility] Anion gap [Moles/Vol] 19 mmol/L High 3 - 13 mmol/L [facility] AST [Catalytic activity/Vol] 35 U/L 15 - 46 U/L [facility] Bilirubin [Mass/Vol] 0.9 mg/dL 0.2 - 1 .3 mg/dL [facility] Calcium [Mass/Vol] 8.7 mg/dL 8.4 - 10. 4 mg/dL [facility] Chloride [Moles/Vol] 96 mmol/L Low 98 - 10 7 mmol/L [facility] CO2 [Moles/Vol] 14 mmol/L Low 22 - 30 mmol/L [facility] Creatinine [Mass/Vol] 0.89 mg/dL 0.66 - 1.25 mg/dL [facility] GFR/1.73 sq M.predicted MDRD (S/P/Bld) [Vol rate/Area] - PINF [facility] Comment on above: Calculation based on the Chronic Kidney Disease Epidemiology Collaboration (CKD-EPI) equation refit without adjustment for race Glucose [Mass/Vol] 138 mg/dL High 70 - 100 mg/dL [facility] Potassium [Moles/Vol] 4.4 mmol/L 3.5 - 5.1 mmol/L [facility] Protein [Mass/Vol] 7.1 g/dL 6.3 - 8.2 g/dL [facility] Sodium [Moles/Vol] 130 mmol/L Low 135 - 145 mmol/L [facility] Urea nitrogen [Mass/Vol] 16 mg/dL 9 - 20 mg/dL [facility] DRUGS OF ABUSEon 03-08-2024 AMPHETAMINE SCREEN Negative Normal [facility] Comment on above: Performed By: #### L [id number] ####Steam Shovel Engineer: TRESSA SANTIZO ([phone])[facility] ([facility])[address] [place] [address] BARBITURATES SCREEN Negative Normal [facility] Comment on above: Performed By: #### L [id number] ####Steam Shovel Engineer: TRESSA SANTIZO ([id number])[facility] ([facility])[address] BENZODIAZEPINE SCREEN Negative Normal [facility] Comment on above: Performed By: #### L [id number] ####Steam Shovel Engineer: TRESSA DARLYN ([phone])[facility] ([facility])[address] COCAINE METAB. SCREEN Negative Normal [facility] Comment on above: Performed By: #### L [id number] ####Steam Shovel Engineer: TRESSA JONESALEKSANDR ([phone])[facility] ([facility])[address] METHADONE SCREEN Negative Normal [facility] Comment on above: Performed By: #### L [id number] ####Steam Shovel Engineer: TRESSA JONESALEKSANDR ([phone])[facility] ([facility])[address] OPIATES SCREEN Negative Normal [facility] Comment on above: Performed By: #### L [id number] ####Steam Shovel Engineer: TRESSA CHRISJAVY ([phone])[facility] ([facility])[address] OXYCODONE SCREEN Negative Normal [facility] Comment on above: Performed By: #### L [id number] ####Steam Shovel Engineer: TRESSA JONESALEKSANDR ([id number])[facility] ([facility])[address] PHENCYCLIDINE SCREEN Negative Normal [facility] Comment on above: Result Comment: CLAIRE Buitrago COMMENTS:The expected value for all of the [...] under separate order. Performed By: #### L [id number] ####Steam Shovel Engineer: TRESSA SANTIZO ([phone])[facility] ([facility])[address] [place] [address] ED Nursing Noteon 03-08-2024 ED Nursing Note Pt. 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 Seizure pads applied to hospital bed. Marjan An RN 03/08/24 [id number] Normal [facility] ED Nursing Note Normal [facility] ED Nursing Note Normal [facility] ED Provider Noteon ED Provider Note Normal [facility] ETHANOLon 03-08-2024 ETHANOL IN SER/PLAS 0.284 g/dL High 0.000-0.010 [facility] Comment on above: Result Comment: CLAIRE Buitrago COMMENTS:NOTE: This result is for medical treatment only. Analysis performed using non-forensic procedures. Performed By: #### L AB34, LAB43, LAB17, [id number], LAB46 ####Steam Shovel Engineer: TRESSA SANTIZO ([id number])[facility] ([facility])[address] [place] [address] Ethanol (Bld) [Mass/Vol]on 0 03-08-2024 Ethanol [Mass/Vol] 0.284 g/dL High 0.000 - 0.010 g/dL [facility] Laboratory - Drug toxicology Ordered By: Maricruz Mesa on 03-08-2024 Amphetamines Screen method >1000 ng/mL Ql (U) Negative [facility] Barbiturates Screen method >200 ng/mL Ql (U) Negative [facility] Benzodiazepines Ql (U) Negative [facility] Methadone Screen Ql (U) Negative [facility] Opiates Screen Ql (U) Negative [facility] oxyCODONE Ql (U) Negative [facility] Phencyclidine Ql (U) Negative [facility] Laboratory - Microbiology an d Antimicrobial susceptibilityon 03-08-2024 SARS-CoV-2 (COVID-19) Ag IA.rapid Ql (Resp) Negative Negative [facility] Comment on above: A negative result do es not rule out the possibility of SARS-CoV-2 infection. NAAT-based methods should be considered for symptomatic patients presenting greater than seven days after onset of symptoms. Method: Lateral flow immunoassay. Fact sheets for healthcare providers and patients can be found at the following sites: https://www.fda.gov/media/784236/download https://www.fda.gov/media/490537/download No Panel InformationOrdered By: Maricruz Mesa on 03-08-2024 COCAINE METAB. SCREEN Negative [facility] The expected value f or all [...] is needed, request confirmation under separate order. [facility] No Panel Informationon 03-08 Interpretation and review of laboratory results Abnormal [facility] Radiology Study observation (narrative) [facility] SALICYLATEon 03-08-2024 SALICYLATES <1.0 Normal <20.0 [facility] Comment on above: Performed By: #### L AB34, LAB43, LAB17, [id number], LAB46 ####Steam Shovel Engineer: TRESSA SANTIZO ([id number])[facility] ([facility])[address] SARS-COV-2 ANTIGENon 024 SARS-COV-2 ANTIGEN Normal [facility] Comment on above: Performed By: #### L [id number] ####Steam Shovel Engineer: TRESSA SANTIZO ([phone])[facility] ([facility])[address] SARS-CoV-2 (COVID-19) Ag IA. rapid Ql (Resp)on 03-08-2024 Interpretation and review of laboratory results Normal [place] 02196on 02-26-2024 36 Normal [facility] CARECOORDon 01-27-2024 [place]ORD Patient Choice Patient Name: WOODY NI Date of : 1960 [facility] CARECOORDon 01-26-2024 [place] Normal [facility] [place] Normal [facility] Asked by [facility] to set transport to [facility]. Wheel chair transportation arranged through [employer] for 1300 chicken picker. 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 [facility] Discharge med list transmitted to [facility] via [facility] per TCC request. [id number] was entered into [place] for the [facility]. [facility] CBC (HEMOGRAM)on 01-26-2024 Erythrocyte distribution width (RBC) [Ratio] 13.5 % Normal 11.5-15.0 [facility] Comment on above: Performed By: #### L [id number] ####Steam Shovel Engineer: ARA WRIGHT ([id number])[address] Hematocrit (Bld) [Volume fraction] 32.2 % Low 40.0-52.0 [facility] Comment on above: Performed By: #### L [id number] ####Steam Shovel Engineer: ARA WRIGHT ([id number])[facility])[address] [place] [address] Hemoglobin (Bld) [Mass/Vol] 11.2 g/dL Low 13.0-18.0 [facility] Comment on above: Performed By: #### L [id number] ####Steam Shovel Engineer: ARA WRIGHT ([id number])[address] MCH (RBC) [Entitic mass] 31.7 pg Normal 26.0-34.0 [facility] Comment on above: Performed By: #### L [id number] ####Steam Shovel Engineer: ARA WRIGHT ([id number])[facility])[address] [place] [address] MCHC 34.8 % Normal 30.5-36.0 [facility] Comment on above: Performed By: #### L [id number] ####Steam Shovel Engineer: ARA WRIGHT ([id number])[facility])[address] [place] [address] MCV (RBC) [Entitic vol] 91.2 fL Normal 77.0-99.0 [facility] Comment on above: Performed By: #### L [id number] ####Steam Shovel Engineer: ARA WRIGHT ([id number])[facility])[address] [place] [address] Platelet mean volume (Bld) [Entitic vol] 9.1 fL Normal 9.0-12.7 [facility] Comment on above: Performed By: #### L [id number] ####Steam Shovel Engineer: ARA WRIGHT ([id number])[facility])[address] [place] [address] Platelets (Bld) [#/Vol] 151 10*3/uL Normal 140-440 [facility] Comment on above: Performed By: #### L [id number] ####Steam Shovel Engineer: ARA WRIGHT ([id number])[facility])[address] [place] [address] RBC (Bld) [#/Vol] 3.53 10*6/uL Low 4.40-5.90 [facility] Comment on above: Performed By: #### L [id number] ####Steam Shovel Engineer: ARA WRIGHT ([id number])[facility])[address] [place] [address] WBC (Bld) [#/Vol] 6.1 10*3/uL Normal 3.6-10.7 [facility] Comment on above: Performed By: #### L [id number] ####Steam Shovel Engineer: ARA WRIGHT ([id number])[facility])[address] [place] [address] CBC panel Auto (Bld)on 01-25 Erythrocyte distribution width (RBC) [Ratio] 13.5 % 11.5 - 15.0 % [facility] Hematocrit (Bld) [Volume fraction] 32.2 % Low 40.0 - 52.0 % [facility] Hemoglobin (Bld) [Mass/Vol] 11.2 g/dL Low 13.0 - 18.0 g/dL [facility] Interpretation and review of laboratory results Abnormal [facility] MCH (RBC) [Entitic mass] 31.7 pg 26.0 - 34.0 pg [facility] MCHC (RBC) [Mass/Vol] 34.8 % 30.5 - 36.0 % [facility] MCV (RBC) [Entitic vol] 91.2 fL 77.0 - 99.0 fL [facility] Platelet mean volume (Bld) [Entitic vol] 9.1 fL 9.0 - 12.7 fL [facility] Platelets (Bld) [#/Vol] 151 10*3/uL 140 - 440 10*3/uL [facility] RBC (Bld) [#/Vol] 3.53 10*6/uL Low 4.40 - 5.9 0 10*6/uL [facility] WBC (Bld) [#/Vol] 6.1 10*3/uL 3.6 - 10.7 10*3/uL [facility] COMPREHENSIVE METABOLIC PANE Peter 01-26-2024 Albumin [Mass/Vol] 3.8 g/dL Normal 3.5-5.0 [facility] Comment on above: Performed By: #### L AB17 ####Steam Shovel Engineer: ARA WRIGHT ([id number])[facility] ([facility])[address] [place] [address] ALP [Catalytic activity/Vol] 50 U/L Normal 38-126 [facility] Comment on above: Performed By: #### L AB17 ####Steam Shovel Engineer: ARA WRIGHT ([id number])[facility] ([facility])[address] [place] [address] ALT [Catalytic activity/Vol] 18 U/L Normal 0-49 [facility] Comment on above: Performed By: #### L AB17 ####Steam Shovel Engineer: ARA WRIGHT ([id number])[facility] ([facility])[address] [place] [address] Anion gap [Moles/Vol] 10 mmol/L Normal 3-13 [facility] Comment on above: Performed By: #### L AB17 ####Steam Shovel Engineer: ARA WRIGHT ([id number])[facility] ([facility])[address] [place] [address] AST [Catalytic activity/Vol] 22 U/L Normal 15-46 [facility] Comment on above: Performed By: #### L AB17 ####Steam Shovel Engineer: ARA WRIGHT ([id number])[facility] ([facility])[address] [place] [address] Bilirubin [Mass/Vol] 0.6 mg/dL Normal 0.2-1.3 [facility] Comment on above: Performed By: #### L AB17 ####Steam Shovel Engineer: ARA WRIGHT ([id number])[facility] ([facility])[address] [place] [address] Calcium [Mass/Vol] 8.9 mg/dL Normal 8.4-10.4 [facility] Comment on above: Performed By: #### L AB17 ####Steam Shovel Engineer: ARA WRIGHT ([id number])[facility] ([facility])[address] [place] [address] [place] Chloride [Moles/Vol] 101 mmol/L Normal 98-107 [facility] Comment on above: Performed By: #### L AB17 ####Steam Shovel Engineer: ARA WRIGHT ([id number])[facility])[address] [place] [address] [place] CO2 [Moles/Vol] 17 mmol/L Low 22-30 [facility] Comment on above: Performed By: #### L AB17 ####Steam Shovel Engineer: ARA WRIGHT ([id number])[facility] ([facility])[address] [place] [address] Creatinine [Mass/Vol] 0.92 mg/dL Normal 0.66-1.25 [facility] Comment on above: Performed By: #### L AB17 ####Steam Shovel Engineer: ARA WRIGHT ([id number])[facility])[address] [place] [address] GLOMERULAR FILTRATION RATE ML/MIN/1.73 SQ M.PREDICTED >90.0 Normal >60.0 [facility] Comment on above: Result Comment: Calc ulation based on the Chronic Kidney Disease Epidemiology Collaboration (CKD-EPI) equation refit without adjustment for race Performed By: #### L AB17 ####Steam Shovel Engineer: ARA WRIGHT ([id number])[facility] ([facility])[address] [place] [address] Glucose [Mass/Vol] 95 mg/dL Normal 70-100 [facility] Comment on above: Performed By: #### L AB17 ####Steam Shovel Engineer: ARA WRIGHT ([id number])[facility] ([facility])[address] [place] [address] Potassium [Moles/Vol] 3.7 mmol/L Normal 3.5-5.1 [facility] Comment on above: Performed By: #### L AB17 ####Steam Shovel Engineer: ARA WRIGHT ([id number])[facility])[address] [place] [address] Protein [Mass/Vol] 6.7 g/dL Normal 6.3-8.2 [facility] Comment on above: Performed By: #### L AB17 ####Steam Shovel Engineer: ARA WRIGHT ([id number])[facility])[address] [place] [address] [place] Sodium [Moles/Vol] 128 mmol/L Low 135-145 [facility] Comment on above: Performed By: #### L AB17 ####Steam Shovel Engineer: ARA WRIGHT ([id number])[facility])[address] [place] [address] [place] Urea nitrogen [Mass/Vol] 5 mg/dL Low 9-20 [facility] Comment on above: Performed By: #### L AB17 ####Steam Shovel Engineer: ARA WRIGHT ([id number])[facility] ([facility])[address] [place] [address] Comprehensive metabolic 1998 panelon 01-26-2024 Albumin [Mass/Vol] 3.8 g/dL 3.5 - 5.0 g/dL [facility] ALP [Catalytic activity/Vol] 50 U/L 38 - 126 U/L [facility] ALT [Catalytic activity/Vol] 18 U/L 0 - 49 U/L [facility] Anion gap [Moles/Vol] 10 mmol/L 3 - 13 mmol/L [facility] AST [Catalytic activity/Vol] 22 U/L 15 - 46 U/L [facility] Bilirubin [Mass/Vol] 0.6 mg/dL 0.2 - 1 .3 mg/dL [facility] Calcium [Mass/Vol] 8.9 mg/dL 8.4 - 10. 4 mg/dL [facility] Chloride [Moles/Vol] 101 mmol/L 98 - 10 7 mmol/L [facility] CO2 [Moles/Vol] 17 mmol/L Low 22 - 30 mmol/L [facility] Creatinine [Mass/Vol] 0.92 mg/dL 0.66 - 1.25 mg/dL [facility] GFR/1.73 sq M.predicted MDRD (S/P/Bld) [Vol rate/Area] - PINF [facility] Comment on above: Calculation based on the Chronic Kidney Disease Epidemiology Collaboration (CKD-EPI) equation refit without adjustment for race Glucose [Mass/Vol] 95 mg/dL 70 - 100 mg/dL [facility] Interpretation and review of laboratory results Abnormal [facility] Potassium [Moles/Vol] 3.7 mmol/L 3.5 - 5.1 mmol/L [facility] Protein [Mass/Vol] 6.7 g/dL 6.3 - 8.2 g/dL [facility] Sodium [Moles/Vol] 128 mmol/L Low 135 - 145 mmol/L [facility] Urea nitrogen [Mass/Vol] 5 mg/dL Low 9 - 20 mg/dL [facility] Progress Noteon 01-26-2024 Progress Note Normal [facility] [id number] 01-25-2024 [id number] 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 Asked to follow per tcc and check cost/benefits for home infusion. Will send to [facility] to inquire. Normal [facility] BASIC METABOLIC PANELon Anion gap [Moles/Vol] 11 mmol/L Normal 3-13 [facility] Comment on above: Performed By: #### L AB15, [id number] ####Steam Shovel Engineer: ARA WRIGHT ([id number])[facility] ([facility])[address] [place] [address] Calcium [Mass/Vol] 9.3 mg/dL Normal 8.4-10.4 [facility] Comment on above: Performed By: #### L AB15, [id number] ####Steam Shovel Engineer: ARA WRIGHT ([id number])[facility] ([facility])[address] [place] [address] Chloride [Moles/Vol] 102 mmol/L Normal 98-107 [facility] Comment on above: Performed By: #### L AB15, [id number] ####Steam Shovel Engineer: ARA WRIGHT ([id number])[facility])[address] [place] [address] CO2 [Moles/Vol] 16 mmol/L Low 22-30 [facility] Comment on above: Performed By: #### L AB15, [id number] ####Steam Shovel Engineer: ARA WRIGHT ([id number])[facility])[address] [place] [address] Creatinine [Mass/Vol] 0.94 mg/dL Normal 0.66-1.25 [facility] Comment on above: Performed By: #### L AB15, [id number] ####Steam Shovel Engineer: ARA WRIGHT ([id number])[facility])[address] [place] [address] GLOMERULAR FILTRATION RATE ML/MIN/1.73 SQ M.PREDICTED >90.0 Normal >60.0 [facility] Comment on above: Result Comment: Calc ulation based on the Chronic Kidney Disease Epidemiology Collaboration (CKD-EPI) equation refit without adjustment for race Performed By: #### L AB15, [id number] ####Steam Shovel Engineer: ARA WRIGHT ([id number])[facility])[address] [place] [address] Glucose [Mass/Vol] 100 mg/dL Normal 70-100 [facility] Comment on above: Performed By: #### L AB15, [id number] ####Steam Shovel Engineer: ARA WRIGHT ([id number])[facility])[address] [place] [address] Potassium [Moles/Vol] 3.6 mmol/L Normal 3.5-5.1 [facility] Comment on above: Performed By: #### L AB15, [id number] ####Steam Shovel Engineer: ARA WRIGHT ([id number])[facility])[address] [place] [address] Sodium [Moles/Vol] 129 mmol/L Low 135-145 [facility] Comment on above: Performed By: #### L AB15, [id number] ####Steam Shovel Engineer: ARA WRIGHT ([id number])[facility])[address] [place] [address] Urea nitrogen [Mass/Vol] 9 mg/dL Normal 9-20 [facility] Comment on above: Performed By: #### L AB15, [id number] ####Steam Shovel Engineer: ARA WRIGHT ([id number])[facility])[address] [place] [address] Basic metabolic 1998 panelon 01-25-2024 Anion gap [Moles/Vol] 11 mmol/L 3 - 13 mmol/L [facility] Calcium [Mass/Vol] 9.3 mg/dL 8.4 - 10. 4 mg/dL [facility] Chloride [Moles/Vol] 102 mmol/L 98 - 10 7 mmol/L [facility] CO2 [Moles/Vol] 16 mmol/L Low 22 - 30 mmol/L [facility] Creatinine [Mass/Vol] 0.94 mg/dL 0.66 - 1.25 mg/dL [facility] GFR/1.73 sq M.predicted MDRD (S/P/Bld) [Vol rate/Area] - PINF [facility] Comment on above: Calculation based on the Chronic Kidney Disease Epidemiology Collaboration (CKD-EPI) equation refit without adjustment for race Glucose [Mass/Vol] 100 mg/dL 70 - 100 mg/dL [facility] Potassium [Moles/Vol] 3.6 mmol/L 3.5 - 5.1 mmol/L [facility] Sodium [Moles/Vol] 129 mmol/L Low 135 - 145 mmol/L [facility] Urea nitrogen [Mass/Vol] 9 mg/dL 9 - 20 mg/dL [facility] CARECOORDon 01-25-2024 [facility] Updated notes placed to [facility] via [facility] per TCC request. Await review and response regarding ability to accept. TCC notified. Normal [facility] [place]OORD Normal [facility] CBC W Auto Differential pane l (Bld)on 01-25-2024 Basophils (Bld) [#/Vol] 0.0 10*3/uL 0.0 - 0.2 10*3/uL [facility] Basophils/100 WBC (Bld) 0.7 % 0.0 - 2.0 % [facility] Eosinophils (Bld) [#/Vol] 0.1 10*3/uL 0.0 - 0.5 10*3/uL [facility] Eosinophils/100 WBC (Bld) 2.0 % 0.0 - 6.0 % [facility] Erythrocyte distribution width (RBC) [Ratio] 13.7 % 11.5 - 15.0 % [facility] Hematocrit (Bld) [Volume fraction] 34.0 % Low 40.0 - 52.0 % [facility] Hemoglobin (Bld) [Mass/Vol] 11.7 g/dL Low 13.0 - 18.0 g/dL [facility] Immature granulocytes (Bld) [#/Vol] 0.0 10*3/uL NINF - 0.1 10*3/uL [facility] Immature granulocytes/100 WBC (Bld) 0.3 % 0.0 - 2.0 % [facility] Interpretation and review of laboratory results Abnormal [facility] Lymphocytes (Bld) [#/Vol] 2.3 10*3/uL 1.0 - 4.3 10*3/uL [facility] Lymphocytes/100 WBC (Bld) 39.1 % 15.0 - 45.0 % [facility] MCH (RBC) [Entitic mass] 31.5 pg 26.0 - 34.0 pg [facility] MCHC (RBC) [Mass/Vol] 34.4 % 30.5 - 36.0 % [facility] MCV (RBC) [Entitic vol] 91.6 fL 77.0 - 99.0 fL [facility] Monocytes (Bld) [#/Vol] 0.7 10*3/uL 0.0 - 0.9 10*3/uL [facility] Monocytes/100 WBC (Bld) 11.0 % 5.0 - 13.0 % [facility] Neutrophils (Bld) [#/Vol] 2.8 10*3/uL 1.8 - 7.5 10*3/uL [facility] Neutrophils/100 WBC (Bld) 46.9 % 38.0 - 82.0 % [facility] Nucleated RBC/100 WBC (Bld) [Ratio] 0.0 % [facility] Platelet mean volume (Bld) [Entitic vol] 9.4 fL 9.0 - 12.7 fL [facility] Platelets (Bld) [#/Vol] 141 10*3/uL 140 - 440 10*3/uL [facility] RBC (Bld) [#/Vol] 3.71 10*6/uL Low 4.40 - 5.9 0 10*6/uL [facility] WBC (Bld) [#/Vol] 6.0 10*3/uL 3.6 - 10.7 10*3/uL [facility] CBC WITH AUTO DIFFERENTIALon 01-25-2024 Basophils (Bld) [#/Vol] 0.0 10*3/uL Normal 0.0-0.2 [facility] Comment on above: Performed By: #### L [id number] ####Steam Shovel Engineer: ARA WRIGHT ([id number])[facility] ([address] Basophils/100 WBC (Bld) 0.7 % Normal 0.0-2.0 [facility] Comment on above: Performed By: #### L [id number] ####Steam Shovel Engineer: ARA WRIGHT ([id number])[facility])[address] [place] [address] Eosinophils (Bld) [#/Vol] 0.1 10*3/uL Normal 0.0-0.5 [facility] Comment on above: Performed By: #### L [id number] ####Steam Shovel Engineer: ARA WRIGHT ([id number])[facility])[address] [place] [address] Eosinophils/100 WBC (Bld) 2.0 % Normal 0.0-6.0 [facility] Comment on above: Performed By: #### L [id number] ####Steam Shovel Engineer: ARA WRIGHT ([id number])[address] Erythrocyte distribution width (RBC) [Ratio] 13.7 % Normal 11.5-15.0 [facility] Comment on above: Performed By: #### L [id number] ####Steam Shovel Engineer: ARA WRIGHT ([id number])[address] Hematocrit (Bld) [Volume fraction] 34.0 % Low 40.0-52.0 [facility] Comment on above: Performed By: #### L [id number] ####Steam Shovel Engineer: ARA WRIGHT ([id number])[address] Hemoglobin (Bld) [Mass/Vol] 11.7 g/dL Low 13.0-18.0 [facility] Comment on above: Performed By: #### L [id number] ####Steam Shovel Engineer: ARA WRIGHT ([id number])[address] IMMATURE GRANS % 0.3 % Normal 0.0-2.0 [facility] Comment on above: Performed By: #### L [id number] ####Steam Shovel Engineer: ARA [id number])[facility])[address] [place] [address] IMMATURE GRANS ABSOLUTE 0.0 10*3/uL Normal <0.1 [facility] Comment on above: Performed By: #### L [id number] ####Steam Shovel Engineer: ARA WRIGHT ([id number])[facility])[address] [place] [address] Lymphocytes (Bld) [#/Vol] 2.3 10*3/uL Normal 1.0-4.3 [facility] Comment on above: Performed By: #### L [id number] ####Steam Shovel Engineer: ARA WRIGHT ([id number])[facility])[address] [place] [address] Lymphocytes/100 WBC (Bld) 39.1 % Normal 15.0-45.0 [facility] Comment on above: Performed By: #### L [id number] ####Steam Shovel Engineer: ARA WRIGHT ([id number])[facility])[address] [place] [address] MCH (RBC) [Entitic mass] 31.5 pg Normal 26.0-34.0 [facility] Comment on above: Performed By: #### L [id number] ####Steam Shovel Engineer: ARA WRIGHT ([id number])[facility])[address] [place] [address] MCHC 34.4 % Normal 30.5-36.0 [facility] Comment on above: Performed By: #### L [id number] ####Steam Shovel Engineer: ARA WRIGHT ([id number])[facility])[address] [place] [address] MCV (RBC) [Entitic vol] 91.6 fL Normal 77.0-99.0 [facility] Comment on above: Performed By: #### L [id number] ####Steam Shovel Engineer: ARA WRIGHT ([id number])[facility])[address] [place] [address] Monocytes (Bld) [#/Vol] 0.7 10*3/uL Normal 0.0-0.9 [facility] Comment on above: Performed By: #### L [id number] ####Steam Shovel Engineer: ARA WRIGHT ([id number])[facility])[address] [place] [address] Monocytes/100 WBC (Bld) 11.0 % Normal 5.0-13.0 [facility] Comment on above: Performed By: #### L [id number] ####Steam Shovel Engineer: ARA WRIGHT ([id number])[facility] ([facility])[address] [place] [address] NEUTROPHILS ABSOLUTE 2.8 10*3/uL Normal 1.8-7.5 [facility] Comment on above: Performed By: #### L [id number] ####Steam Shovel Engineer: ARA WRIGHT ([id number])[facility])[address] [place] [address] Neutrophils/100 WBC (Bld) 46.9 % Normal 38.0-82.0 [facility] Comment on above: Performed By: #### L [id number] ####Steam Shovel Engineer: ARA WRIGHT ([id number])[facility])[address] [place] [address] NRBC 0.0 /100 WBCs Normal 0.0-2.0 [facility] Comment on above: Performed By: #### L [id number] ####Steam Shovel Engineer: ARA WRIGHT ([id number])[facility])[address] [place] [address] Platelet mean volume (Bld) [Entitic vol] 9.4 fL Normal 9.0-12.7 [facility] Comment on above: Performed By: #### L [id number] ####Steam Shovel Engineer: ARA WRIGHT ([id number])[facility])[address] [place] [address] Platelets (Bld) [#/Vol] 141 10*3/uL Normal 140-440 [facility] Comment on above: Performed By: #### L [id number] ####Steam Shovel Engineer: ARA WRIGHT ([id number])[facility])[address] [place] [address] RBC (Bld) [#/Vol] 3.71 10*6/uL Low 4.40-5.90 [facility] Comment on above: Performed By: #### L [id number] ####Steam Shovel Engineer: ARA WRIGHT ([id number])[facility])[address] [place] [address] WBC (Bld) [#/Vol] 6.0 10*3/uL Normal 3.6-10.7 [facility] Comment on above: Performed By: #### L [id number] ####Steam Shovel Engineer: ARA WRIGHT ([id number])[facility])[address] [place] [address] Laboratory - Chemistry and C hemistry - challengeon 01-25-2024 Magnesium [Mass/Vol] 1.5 mg/dL Low 1.6 - 2 .3 mg/dL [facility] MAGNESIUMon 01-25-2024 Magnesium [Mass/Vol] 1.5 mg/dL Low 1.6-2.3 [facility] Comment on above: Performed By: #### L AB15, [id number] ####Steam Shovel Engineer: ARA WRIGHT ([id number])[address] No Panel Informationon 01-24 Interpretation and review of laboratory results Abnormal [facility] Progress Noteon 01-25-2024 Progress Note Normal [facility] Progress Note Normal [facility] Progress Note Normal [facility] Progress Note PHYSICAL THERAPY [facility] Name/MRN: Woody Ni ([id number]) Date: 01/25/2024 Attempted PT. Pt states he can't do any therapy right now because he needs his meds first. Will re-attempt as schedule allows. Amarilys Leary, BILLET GRINDER Normal [facility] Progress Note Normal [facility] BASIC METABOLIC PANELon Anion gap [Moles/Vol] 11 mmol/L Normal 3-13 [facility] Comment on above: Performed By: #### L AB103, LAB15 ####Steam Shovel Engineer: ARA WRIGHT ([id number])[facility] ([facility] [place] [address] Calcium [Mass/Vol] 9.6 mg/dL Normal 8.4-10.4 [facility] Comment on above: Performed By: #### L AB103, LAB15 ####Steam Shovel Engineer: ARA WRIGHT ([id number])[facility] [facility] [place] [address] Chloride [Moles/Vol] 103 mmol/L Normal 98-107 [facility] Comment on above: Performed By: #### L [id number], [id number] ####Steam Shovel Engineer: ARA WRIGHT ([id number])[facility] ([facility])[address] [place] [address] CO2 [Moles/Vol] 18 mmol/L Low 22-30 [facility] Comment on above: Performed By: #### L AB103, [id number] ####Steam Shovel Engineer: ARA WRIGHT ([id number])[facility] ([facility])[address] [place] [address] Creatinine [Mass/Vol] 0.86 mg/dL Normal 0.66-1.25 [facility] Comment on above: Performed By: #### L AB103, [id number] ####Steam Shovel Engineer: ARA WRIGHT ([id number])[facility] ([facility])[address] [place] [address] GLOMERULAR FILTRATION RATE ML/MIN/1.73 SQ M.PREDICTED >90.0 Normal >60.0 [facility] Comment on above: Result Comment: Calc ulation based on the Chronic Kidney Disease Epidemiology Collaboration (CKD-EPI) equation refit without adjustment for race Performed By: #### L AB103, LAB15 ####Steam Shovel Engineer: ARA WRIGHT ([id number])[facility] ([facility])[address] [place] [address] [place] Glucose [Mass/Vol] 97 mg/dL Normal 70-100 [facility] Comment on above: Performed By: #### L AB103, [id number] ####Steam Shovel Engineer: ARA WRIGHT ([id number])[facility])[address] [place] [address] Potassium [Moles/Vol] 4.0 mmol/L Normal 3.5-5.1 [facility] Comment on above: Performed By: #### L AB103, [id number] ####Steam Shovel Engineer: ARA WRIGHT ([id number])[facility] ([facility])[address] [place] [address] Sodium [Moles/Vol] 132 mmol/L Low 135-145 [facility] Comment on above: Performed By: #### L AB103, LAB15 ####Steam Shovel Engineer: ARA WRIGHT ([id number])[facility])[address] [place] [address] Urea nitrogen [Mass/Vol] 12 mg/dL Normal 9-20 [facility] Comment on above: Performed By: #### L AB103, LAB15 ####Steam Shovel Engineer: ARA WRIGHT ([id number])[facility])[address] [place] [address] Basic metabolic 1998 panelon 01-24-2024 Anion gap [Moles/Vol] 11 mmol/L 3 - 13 mmol/L [facility] Calcium [Mass/Vol] 9.6 mg/dL 8.4 - 10. 4 mg/dL [facility] Chloride [Moles/Vol] 103 mmol/L 98 - 10 7 mmol/L [facility] CO2 [Moles/Vol] 18 mmol/L Low 22 - 30 mmol/L [facility] Creatinine [Mass/Vol] 0.86 mg/dL 0.66 - 1.25 mg/dL [facility] GFR/1.73 sq M.predicted MDRD (S/P/Bld) [Vol rate/Area] - PINF [facility] Comment on above: Calculation based on the Chronic Kidney Disease Epidemiology Collaboration (CKD-EPI) equation refit without adjustment for race Glucose [Mass/Vol] 97 mg/dL 70 - 100 mg/dL [facility] Interpretation and review of laboratory results Abnormal [facility] Potassium [Moles/Vol] 4.0 mmol/L 3.5 - 5.1 mmol/L [facility] Sodium [Moles/Vol] 132 mmol/L Low 135 - 145 mmol/L [facility] Urea nitrogen [Mass/Vol] 12 mg/dL 9 - 20 mg/dL [facility] CBC W Auto Differential pane l (Bld)on 01-24-2024 Basophils (Bld) [#/Vol] 0.0 10*3/uL 0.0 - 0.2 10*3/uL [facility] Basophils/100 WBC (Bld) 0.5 % 0.0 - 2.0 % [facility] Eosinophils (Bld) [#/Vol] 0.1 10*3/uL 0.0 - 0.5 10*3/uL [facility] Eosinophils/100 WBC (Bld) 2.3 % 0.0 - 6.0 % [facility] Erythrocyte distribution width (RBC) [Ratio] 13.9 % 11.5 - 15.0 % [facility] Hematocrit (Bld) [Volume fraction] 33.0 % Low 40.0 - 52.0 % [facility] Hemoglobin (Bld) [Mass/Vol] 11.6 g/dL Low 13.0 - 18.0 g/dL [facility] Immature granulocytes (Bld) [#/Vol] 0.0 10*3/uL NINF - 0.1 10*3/uL [facility] Immature granulocytes/100 WBC (Bld) 0.3 % 0.0 - 2.0 % [facility] Interpretation and review of laboratory results Abnormal [facility] Lymphocytes (Bld) [#/Vol] 2.4 10*3/uL 1.0 - 4.3 10*3/uL [facility] Lymphocytes/100 WBC (Bld) 38.5 % 15.0 - 45.0 % [facility] MCH (RBC) [Entitic mass] 32.0 pg 26.0 - 34.0 pg [facility] MCHC (RBC) [Mass/Vol] 35.2 % 30.5 - 36.0 % [facility] MCV (RBC) [Entitic vol] 91.2 fL 77.0 - 99.0 fL [facility] Monocytes (Bld) [#/Vol] 0.7 10*3/uL 0.0 - 0.9 10*3/uL [facility] Monocytes/100 WBC (Bld) 12.1 % 5.0 - 13.0 % [facility] Neutrophils (Bld) [#/Vol] 2.8 10*3/uL 1.8 - 7.5 10*3/uL [facility] Neutrophils/100 WBC (Bld) 46.3 % 38.0 - 82.0 % [facility] Nucleated RBC/100 WBC (Bld) [Ratio] 0.0 % [facility] Platelet mean volume (Bld) [Entitic vol] 9.3 fL 9.0 - 12.7 fL [facility] Platelets (Bld) [#/Vol] 128 10*3/uL Low 140 - 440 10*3/uL [facility] RBC (Bld) [#/Vol] 3.62 10*6/uL Low 4.40 - 5.9 0 10*6/uL [facility] WBC (Bld) [#/Vol] 6.1 10*3/uL 3.6 - 10.7 10*3/uL [facility] CBC WITH AUTO DIFFERENTIALon 01-24-2024 Basophils (Bld) [#/Vol] 0.0 10*3/uL Normal 0.0-0.2 [facility] Comment on above: Performed By: #### L [id number] ####Steam Shovel Engineer: ARA WRIGHT ([id number])[facility])[address] [place] [address] Basophils/100 WBC (Bld) 0.5 % Normal 0.0-2.0 [facility] Comment on above: Performed By: #### L [id number] ####Steam Shovel Engineer: ARA WRIGHT ([id number])[facility] ([facility])[address] [place] [address] [place] Eosinophils (Bld) [#/Vol] 0.1 10*3/uL Normal 0.0-0.5 [facility] Comment on above: Performed By: #### L [id number] ####Steam Shovel Engineer: ARA WRIGHT ([id number])[facility])[address] [place] [address] [place] Eosinophils/100 WBC (Bld) 2.3 % Normal 0.0-6.0 [facility] Comment on above: Performed By: #### L [id number] ####Steam Shovel Engineer: ARA WRIGHT ([id number])[address] Erythrocyte distribution width (RBC) [Ratio] 13.9 % Normal 11.5-15.0 [facility] Comment on above: Performed By: #### L [id number] ####Steam Shovel Engineer: ARA WRIGHT ([id number])[address] Hematocrit (Bld) [Volume fraction] 33.0 % Low 40.0-52.0 [facility] Comment on above: Performed By: #### L [id number] ####Steam Shovel Engineer: ARA WRIGHT ([id number])[address] Hemoglobin (Bld) [Mass/Vol] 11.6 g/dL Low 13.0-18.0 [facility] Comment on above: Performed By: #### L [id number] ####Steam Shovel Engineer: ARA WRIGHT ([id number])[address] IMMATURE GRANS % 0.3 % Normal 0.0-2.0 [facility] Comment on above: Performed By: #### L [id number] ####Steam Shovel Engineer: ARA WRIGHT ([phone])[address] IMMATURE GRANS ABSOLUTE 0.0 10*3/uL Normal <0.1 [facility] Comment on above: Performed By: #### L [id number] ####Steam Shovel Engineer: ARA WRIGHT ([id number])[address] Lymphocytes (Bld) [#/Vol] 2.4 10*3/uL Normal 1.0-4.3 [facility] Comment on above: Performed By: #### L [id number] ####Steam Shovel Engineer: ARA WRIGHT ([id number])[facility])[address] [place] [address] Lymphocytes/100 WBC (Bld) 38.5 % Normal 15.0-45.0 [facility] Comment on above: Performed By: #### L [id number] ####Steam Shovel Engineer: ARA WRIGHT ([id number])[facility])[address] [place] [address] MCH (RBC) [Entitic mass] 32.0 pg Normal 26.0-34.0 [facility] Comment on above: Performed By: #### L [id number] ####Steam Shovel Engineer: ARA WRIGHT ([id number])[facility])[address] [place] [address] MCHC 35.2 % Normal 30.5-36.0 [facility] Comment on above: Performed By: #### L [id number] ####Steam Shovel Engineer: ARA WRIGHT ([id number])[facility])[address] [place] [address] MCV (RBC) [Entitic vol] 91.2 fL Normal 77.0-99.0 [facility] Comment on above: Performed By: #### L [id number] ####Steam Shovel Engineer: ARA WRIGHT ([id number])[facility])[address] [place] [address] Monocytes (Bld) [#/Vol] 0.7 10*3/uL Normal 0.0-0.9 [facility] Comment on above: Performed By: #### L [id number] ####Steam Shovel Engineer: ARA WRIGHT ([id number])[facility])[address] [place] [address] Monocytes/100 WBC (Bld) 12.1 % Normal 5.0-13.0 [facility] Comment on above: Performed By: #### L [id number] ####Steam Shovel Engineer: ARA WRIGHT ([id number])[facility])[address] [place] [address] NEUTROPHILS ABSOLUTE 2.8 10*3/uL Normal 1.8-7.5 [facility] Comment on above: Performed By: #### L [id number] ####Steam Shovel Engineer: ARA WRIGHT ([id number])[facility] ([facility])[address] [place] [address] Neutrophils/100 WBC (Bld) 46.3 % Normal 38.0-82.0 [facility] Comment on above: Performed By: #### L [id number] ####Steam Shovel Engineer: ARA WRIGHT ([id number])[facility] ([facility])[address] [place] [address] NRBC 0.0 /100 WBCs Normal 0.0-2.0 [facility] Comment on above: Performed By: #### L [id number] ####Steam Shovel Engineer: ARA WRIGHT ([id number])[facility] ([facility])[address] [place] [address] Platelet mean volume (Bld) [Entitic vol] 9.3 fL Normal 9.0-12.7 [facility] Comment on above: Performed By: #### L [id number] ####Steam Shovel Engineer: ARA WRIGHT ([id number])[facility] ([facility])[address] [place] [address] Platelets (Bld) [#/Vol] 128 10*3/uL Low 140-440 [facility] Comment on above: Performed By: #### L [id number] ####Steam Shovel Engineer: ARA WRIGHT ([id number])[facility] ([facility])[address] [place] [address] [place] RBC (Bld) [#/Vol] 3.62 10*6/uL Low 4.40-5.90 [facility] Comment on above: Performed By: #### L [id number] ####Steam Shovel Engineer: ARA WRIGHT ([id number])[facility] ([facility])[address] [place] [address] [place] WBC (Bld) [#/Vol] 6.1 10*3/uL Normal 3.6-10.7 [facility] Comment on above: Performed By: #### L [id number] ####Steam Shovel Engineer: ARA WRIGHT ([id number])[facility])[address] [place] [address] Laboratory - Chemistry and C hemistry - challengeon 01-24-2024 Magnesium [Mass/Vol] 1.6 mg/dL 1.6 - 2 .3 mg/dL [facility] MAGNESIUMon 01-24-2024 Magnesium [Mass/Vol] 1.6 mg/dL Normal 1.6-2.3 [facility] Comment on above: Performed By: #### L AB103, LAB15 ####Steam Shovel Engineer: ARA WRIGHT ([id number])[facility])[address] [place] [address] Magnesium [Mass/Vol]on 01-23 Interpretation and review of laboratory results Normal [facility] No Panel Informationon 01-23 [facility] Progress Noteon 01-24-2024 Progress Note Normal [facility] Progress Note Patient requesting A tivan stating so anxious and shaky Also requested tylenol and nausea med Normal [facility] BASIC METABOLIC PANELon Anion gap [Moles/Vol] 12 mmol/L Normal 3-13 [facility] Comment on above: Performed By: #### L AB15, [id number] ####Steam Shovel Engineer: ARA WRIGHT ([id number])[facility])[address] [place] [address] Calcium [Mass/Vol] 9.8 mg/dL Normal 8.4-10.4 [facility] Comment on above: Performed By: #### L AB15, [id number] ####Steam Shovel Engineer: ARA WRIGHT ([id number])[facility])[address] [place] [address] Chloride [Moles/Vol] 98 mmol/L Normal 98-107 [facility] Comment on above: Performed By: #### L AB15, [id number] ####Steam Shovel Engineer: ARA WRIGHT ([id number])[facility] [place] [address] [place] CO2 [Moles/Vol] 19 mmol/L Low 22-30 [facility] Comment on above: Performed By: #### L AB15, [id number] ####Steam Shovel Engineer: ARA WRIGHT ([id number])[facility] ([facility])[address] [place] [address] Creatinine [Mass/Vol] 0.90 mg/dL Normal 0.66-1.25 [facility] Comment on above: Performed By: #### L [id number], [id number] ####Steam Shovel Engineer: ARA WRIGHT ([id number])[facility])[address] [place] [address] GLOMERULAR FILTRATION RATE ML/MIN/1.73 SQ M.PREDICTED >90.0 Normal >60.0 [facility] Comment on above: Result Comment: Calc ulation based on the Chronic Kidney Disease Epidemiology Collaboration (CKD-EPI) equation refit without adjustment for race Performed By: #### L [id number], [id number] ####Steam Shovel Engineer: ARA WRIGHT ([id number])[facility] ([facility])[address] [place] [address] [place] Glucose [Mass/Vol] 136 mg/dL High 70-100 [facility] Comment on above: Performed By: #### L AB15, [id number] ####Steam Shovel Engineer: ARA WRIGHT ([id number])[facility] ([facility])[address] [place] [address] [place] Potassium [Moles/Vol] 3.9 mmol/L Normal 3.5-5.1 [facility] Comment on above: Performed By: #### L AB15, [id number] ####Steam Shovel Engineer: ARA WRIGHT ([id number])[facility])[address] [place] [address] [place] Sodium [Moles/Vol] 130 mmol/L Low 135-145 [facility] Comment on above: Performed By: #### L AB15, [id number] ####Steam Shovel Engineer: ARA WRIGHT ([id number])[facility])[address] [place] [address] Urea nitrogen [Mass/Vol] 8 mg/dL Low 9-20 [facility] Comment on above: Performed By: #### L AB15, [id number] ####Steam Shovel Engineer: ARA WRIGHT ([id number])[facility])[address] [place] [address] Basic metabolic 1998 panelon 01-23-2024 Anion gap [Moles/Vol] 12 mmol/L 3 - 13 mmol/L [facility] Calcium [Mass/Vol] 9.8 mg/dL 8.4 - 10. 4 mg/dL [facility] Chloride [Moles/Vol] 98 mmol/L 98 - 10 7 mmol/L [facility] CO2 [Moles/Vol] 19 mmol/L Low 22 - 30 mmol/L [facility] Creatinine [Mass/Vol] 0.90 mg/dL 0.66 - 1.25 mg/dL [facility] GFR/1.73 sq M.predicted MDRD (S/P/Bld) [Vol rate/Area] - PINF [facility] Comment on above: Calculation based on the Chronic Kidney Disease Epidemiology Collaboration (CKD-EPI) equation refit without adjustment for race Glucose [Mass/Vol] 136 mg/dL High 70 - 100 mg/dL [facility] Interpretation and review of laboratory results Abnormal [facility] Potassium [Moles/Vol] 3.9 mmol/L 3.5 - 5.1 mmol/L [facility] Sodium [Moles/Vol] 130 mmol/L Low 135 - 145 mmol/L [facility] Urea nitrogen [Mass/Vol] 8 mg/dL Low 9 - 20 mg/dL [facility] CBC W Auto Differential pane l (Bld)Ordered By: Rita Swan on 01-23-2024 Basophils (Bld) [#/Vol] 0.0 10*3/uL 0.0 - 0.2 10*3/uL [facility] Basophils/100 WBC (Bld) 0.4 % 0.0 - 2.0 % [facility] Eosinophils (Bld) [#/Vol] 0.2 10*3/uL 0.0 - 0.5 10*3/uL [facility] Eosinophils/100 WBC (Bld) 2.3 % 0.0 - 6.0 % [facility] Erythrocyte distribution width (RBC) [Ratio] 14.2 % 11.5 - 15.0 % [facility] Hematocrit (Bld) [Volume fraction] 36.0 % Low 40.0 - 52.0 % [facility] Hemoglobin (Bld) [Mass/Vol] 12.4 g/dL Low 13.0 - 18.0 g/dL [facility] Immature granulocytes (Bld) [#/Vol] 0.0 10*3/uL NINF - 0.1 10*3/uL [facility] Immature granulocytes/100 WBC (Bld) 0.4 % 0.0 - 2.0 % [facility] Interpretation and review of laboratory results Abnormal [facility] IPF 2 [facility] Lymphocytes (Bld) [#/Vol] 1.8 10*3/uL 1.0 - 4.3 10*3/uL [facility] Lymphocytes/100 WBC (Bld) 25.3 % 15.0 - 45.0 % [facility] MCH (RBC) [Entitic mass] 31.8 pg 26.0 - 34.0 pg [facility] MCHC (RBC) [Mass/Vol] 34.4 % 30.5 - 36.0 % [facility] MCV (RBC) [Entitic vol] 92.3 fL 77.0 - 99.0 fL [facility] Monocytes (Bld) [#/Vol] 1.0 10*3/uL High 0.0 - 0.9 10*3/uL [facility] Monocytes/100 WBC (Bld) 13.6 % High 5.0 - 13.0 % [facility] Neutrophils (Bld) [#/Vol] 4.1 10*3/uL 1.8 - 7.5 10*3/uL [facility] Neutrophils/100 WBC (Bld) 58.0 % 38.0 - 82.0 % [facility] Nucleated RBC/100 WBC (Bld) [Ratio] 0.0 % [facility] Platelet mean volume (Bld) [Entitic vol] 9.4 fL 9.0 - 12.7 fL [facility] Platelets (Bld) [#/Vol] 139 10*3/uL Low 140 - 440 10*3/uL [facility] RBC (Bld) [#/Vol] 3.90 10*6/uL Low 4.40 - 5.9 0 10*6/uL [facility] WBC (Bld) [#/Vol] 7.1 10*3/uL 3.6 - 10.7 10*3/uL [facility] CBC WITH AUTO DIFFERENTIALon 01-23-2024 Basophils (Bld) [#/Vol] 0.0 10*3/uL Normal 0.0-0.2 [facility] Comment on above: Performed By: #### L [id number] ####Steam Shovel Engineer: ARA WRIGHT ([id number])[facility])[address] [place] [address] Basophils/100 WBC (Bld) 0.4 % Normal 0.0-2.0 [facility] Comment on above: Performed By: #### L [id number] ####Steam Shovel Engineer: ARA WRIGHT ([id number])[facility])[address] [place] [address] Eosinophils (Bld) [#/Vol] 0.2 10*3/uL Normal 0.0-0.5 [facility] Comment on above: Performed By: #### L [id number] ####Steam Shovel Engineer: ARA WRIGHT ([id number])[facility])[address] [place] [address] Eosinophils/100 WBC (Bld) 2.3 % Normal 0.0-6.0 [facility] Comment on above: Performed By: #### L [id number] ####Steam Shovel Engineer: ARA WRIGHT ([id number])[facility])[address] [place] [address] Erythrocyte distribution width (RBC) [Ratio] 14.2 % Normal 11.5-15.0 [facility] Comment on above: Performed By: #### L [id number] ####Steam Shovel Engineer: ARA WRIGHT ([id number])[facility])[address] [place] [address] Hematocrit (Bld) [Volume fraction] 36.0 % Low 40.0-52.0 [facility] Comment on above: Performed By: #### L [id number] ####Steam Shovel Engineer: ARA WRIGHT ([id number])[facility])[address] [place] [address] Hemoglobin (Bld) [Mass/Vol] 12.4 g/dL Low 13.0-18.0 [facility] Comment on above: Performed By: #### L [id number] ####Steam Shovel Engineer: ARA WRIGHT ([id number])[facility])[address] [place] [address] IMMATURE GRANS % 0.4 % Normal 0.0-2.0 [facility] Comment on above: Performed By: #### L [id number] ####Steam Shovel Engineer: ARA WRIGHT ([id number])[facility])[address] [place] [address] IMMATURE GRANS ABSOLUTE 0.0 10*3/uL Normal <0.1 [facility] Comment on above: Performed By: #### L [id number] ####Steam Shovel Engineer: ARA WRIGHT ([id number])[facility])[address] [place] [address] IPF 2 Normal [facility] Comment on above: Performed By: #### L [id number] ####Steam Shovel Engineer: ARA WRIGHT ([id number])[facility])[address] [place] [address] Lymphocytes (Bld) [#/Vol] 1.8 10*3/uL Normal 1.0-4.3 [facility] Comment on above: Performed By: #### L [id number] ####Steam Shovel Engineer: ARA WRIGHT ([id number])[facility])[address] [place] [address] Lymphocytes/100 WBC (Bld) 25.3 % Normal 15.0-45.0 [facility] Comment on above: Performed By: #### L [id number] ####Steam Shovel Engineer: ARA WRIGHT ([id number])[facility])[address] [place] [address] MCH (RBC) [Entitic mass] 31.8 pg Normal 26.0-34.0 [facility] Comment on above: Performed By: #### L [id number] ####Steam Shovel Engineer: ARA WRIGHT ([id number])[facility])[address] [place] [address] MCHC 34.4 % Normal 30.5-36.0 [facility] Comment on above: Performed By: #### L [id number] ####Steam Shovel Engineer: ARA WRIGHT ([id number])[facility])[address] [place] [address] MCV (RBC) [Entitic vol] 92.3 fL Normal 77.0-99.0 [facility] Comment on above: Performed By: #### L [id number] ####Steam Shovel Engineer: ARA WRIGHT ([id number])[facility])[address] [place] [address] Monocytes (Bld) [#/Vol] 1.0 10*3/uL High 0.0-0.9 [facility] Comment on above: Performed By: #### L [id number] ####Steam Shovel Engineer: ARA WRIGHT ([id number])[facility])[address] [place] [address] Monocytes/100 WBC (Bld) 13.6 % High 5.0-13.0 [facility] Comment on above: Performed By: #### L [id number] ####Steam Shovel Engineer: ARA WRIGHT ([id number])[facility])[address] [place] [address] NEUTROPHILS ABSOLUTE 4.1 10*3/uL Normal 1.8-7.5 [facility] Comment on above: Performed By: #### L [id number] ####Steam Shovel Engineer: ARA WRIGHT ([id number])[facility])[address] [place] [address] Neutrophils/100 WBC (Bld) 58.0 % Normal 38.0-82.0 [facility] Comment on above: Performed By: #### L [id number] ####Steam Shovel Engineer: ARA WRIGHT ([id number])[facility] ([facility])[address] [place] [address] NRBC 0.0 /100 WBCs Normal 0.0-2.0 [facility] Comment on above: Performed By: #### L [id number] ####Steam Shovel Engineer: ARA WRIGHT ([id number])[facility] ([facility])[address] [place] [address] Platelet mean volume (Bld) [Entitic vol] 9.4 fL Normal 9.0-12.7 [facility] Comment on above: Performed By: #### L [id number] ####Steam Shovel Engineer: ARA WRIGHT ([id number])[facility] ([facility])[address] [place] [address] Platelets (Bld) [#/Vol] 139 10*3/uL Low 140-440 [facility] Comment on above: Performed By: #### L [id number] ####Steam Shovel Engineer: ARA WRIGHT ([phone])[facility] ([facility])[address] [place] [address] RBC (Bld) [#/Vol] 3.90 10*6/uL Low 4.40-5.90 [facility] Comment on above: Performed By: #### L [id number] ####Steam Shovel Engineer: ARA WRIGHT ([id number])[facility] ([facility])[address] [place] [address] WBC (Bld) [#/Vol] 7.1 10*3/uL Normal 3.6-10.7 [facility] Comment on above: Performed By: #### L [id number] ####Steam Shovel Engineer: ARA WRIGHT ([id number])[facility] ([facility])[address] [place] [address] Laboratory - Chemistry and C hemistry - challengeon 01-23-2024 Magnesium [Mass/Vol] 1.7 mg/dL 1.6 - 2 .3 mg/dL [facility] MAGNESIUMon 01-23-2024 Magnesium [Mass/Vol] 1.7 mg/dL Normal 1.6-2.3 [facility] Comment on above: Performed By: #### L [id number], [id number] ####Steam Shovel Engineer: ARA WRIGHT ([phone])[facility])[address] [place] [address] Magnesium [Mass/Vol]on 01-22 Interpretation and review of laboratory results Normal [facility] No Panel Informationon 01-22 [facility] Progress Noteon 01-23-2024 Progress Note Normal [facility] C. DIFFICILE BY PCR WITH REF BEATRICE TO EIAon 01-22-2024 C. DIFFICILE BY PCR WITH REFLEX TO EIA C. DIFFICILE TOXIN PCR Reference Not Detected Not Detected ORDER COMMENTS: C. difficile infection is unlikely to be present. Methodology: Real-time PCR Normal [facility] Comment on above: Performed By: #### L [id number] ####Steam Shovel Engineer: ARA WRIGHT ([phone])[facility] ([facility])[address] [place] [address] C. difficile toxin genes SHANE +probe Ql (Stl)on 01-22-2024 C. difficile toxin B tcdB gene SHANE+probe Ql (Stl) Not detected Not Detected [facility] Interpretation and review of laboratory results Normal [facility] C. difficile infecti on is unlikely to be present. Methodology: Real-time PCR [facility] CARECOORDon 01-22-2024 CARECODOTHAN Normal [facility] CARECODOTHAN Normal [facility] CBC W Auto Differential pane l (Bld)on 01-22-2024 Basophils (Bld) [#/Vol] 0.0 10*3/uL 0.0 - 0.2 10*3/uL [facility] Basophils/100 WBC (Bld) 0.4 % 0.0 - 2.0 % [facility] Eosinophils (Bld) [#/Vol] 0.1 10*3/uL 0.0 - 0.5 10*3/uL [facility] Eosinophils/100 WBC (Bld) 1.5 % 0.0 - 6.0 % [facility] Erythrocyte distribution width (RBC) [Ratio] 14.0 % 11.5 - 15.0 % [facility] Hematocrit (Bld) [Volume fraction] 30.1 % Low 40.0 - 52.0 % [facility] Hemoglobin (Bld) [Mass/Vol] 10.6 g/dL Low 13.0 - 18.0 g/dL [facility] Immature granulocytes (Bld) [#/Vol] 0.0 10*3/uL NINF - 0.1 10*3/uL [facility] Immature granulocytes/100 WBC (Bld) 0.2 % 0.0 - 2.0 % [facility] Interpretation and review of laboratory results Abnormal [facility] IPF 3 [facility] Lymphocytes (Bld) [#/Vol] 1.7 10*3/uL 1.0 - 4.3 10*3/uL [facility] Lymphocytes/100 WBC (Bld) 35.7 % 15.0 - 45.0 % [facility] MCH (RBC) [Entitic mass] 32.5 pg 26.0 - 34.0 pg [facility] MCHC (RBC) [Mass/Vol] 35.2 % 30.5 - 36.0 % [facility] MCV (RBC) [Entitic vol] 92.3 fL 77.0 - 99.0 fL [facility] Monocytes (Bld) [#/Vol] 0.7 10*3/uL 0.0 - 0.9 10*3/uL [facility] Monocytes/100 WBC (Bld) 13.9 % High 5.0 - 13.0 % [facility] Neutrophils (Bld) [#/Vol] 2.3 10*3/uL 1.8 - 7.5 10*3/uL [facility] Neutrophils/100 WBC (Bld) 48.3 % 38.0 - 82.0 % [facility] Nucleated RBC/100 WBC (Bld) [Ratio] 0.0 % [facility] Platelet mean volume (Bld) [Entitic vol] 10.2 fL 9.0 - 12.7 fL [facility] Platelets (Bld) [#/Vol] 83 10*3/uL Low 140 - 440 10*3/uL [facility] RBC (Bld) [#/Vol] 3.26 10*6/uL Low 4.40 - 5.9 0 10*6/uL [facility] WBC (Bld) [#/Vol] 4.7 10*3/uL 3.6 - 10.7 10*3/uL [facility] CBC WITH AUTO DIFFERENTIALon 01-22-2024 Basophils (Bld) [#/Vol] 0.0 10*3/uL Normal 0.0-0.2 [facility] Comment on above: Performed By: #### L [id number] ####Steam Shovel Engineer: ARA WRIGHT ([id number])[facility] ([facility])[address] [place] [address] [place] Basophils/100 WBC (Bld) 0.4 % Normal 0.0-2.0 [facility] Comment on above: Performed By: #### L [id number] ####Steam Shovel Engineer: ARA WRIGHT ([phone])[facility])[address] [place] [address] Eosinophils (Bld) [#/Vol] 0.1 10*3/uL Normal 0.0-0.5 [facility] Comment on above: Performed By: #### L [id number] ####Steam Shovel Engineer: ARA WRIGHT ([id number])[facility] ([facility])[address] [place] [address] Eosinophils/100 WBC (Bld) 1.5 % Normal 0.0-6.0 [facility] Comment on above: Performed By: #### L [id number] ####Steam Shovel Engineer: ARA WRIGHT ([id number])[facility])[address] [place] [address] Erythrocyte distribution width (RBC) [Ratio] 14.0 % Normal 11.5-15.0 [facility] Comment on above: Performed By: #### L [id number] ####Steam Shovel Engineer: ARA WRIGHT ([phone])[facility] ([facility])[address] [place] [address] Hematocrit (Bld) [Volume fraction] 30.1 % Low 40.0-52.0 [facility] Comment on above: Performed By: #### L [id number] ####Steam Shovel Engineer: ARA WRIGHT ([phone])[facility])[address] [place] [address] Hemoglobin (Bld) [Mass/Vol] 10.6 g/dL Low 13.0-18.0 [facility] Comment on above: Performed By: #### L [id number] ####Steam Shovel Engineer: ARA WRIGHT ([id number])[facility])[address] [place] [address] IMMATURE GRANS % 0.2 % Normal 0.0-2.0 [facility] Comment on above: Performed By: #### L [id number] ####Steam Shovel Engineer: ARA WRIGHT ([phone])[facility])[address] [place] [address] IMMATURE GRANS ABSOLUTE 0.0 10*3/uL Normal <0.1 [facility] Comment on above: Performed By: #### L [id number] ####Steam Shovel Engineer: ARA WRIGHT ([phone])[facility])[address] [place] [address] IPF 3 Normal [facility] Comment on above: Performed By: #### L [id number] ####Steam Shovel Engineer: ARA WRIGHT ([id number])[facility] ([facility])[address] [place] [address] Lymphocytes (Bld) [#/Vol] 1.7 10*3/uL Normal 1.0-4.3 [facility] Comment on above: Performed By: #### L [id number] ####Steam Shovel Engineer: ARA WRIGHT ([phone])[facility])[address] [place] [address] Lymphocytes/100 WBC (Bld) 35.7 % Normal 15.0-45.0 [facility] Comment on above: Performed By: #### L [id number] ####Steam Shovel Engineer: ARA WRIGHT ([phone])[facility])[address] [place] [address] MCH (RBC) [Entitic mass] 32.5 pg Normal 26.0-34.0 [facility] Comment on above: Performed By: #### L [id number] ####Steam Shovel Engineer: ARA WRIGHT ([id number])[facility] ([facility])[address] [place] [address] MCHC 35.2 % Normal 30.5-36.0 [facility] Comment on above: Performed By: #### L [id number] ####Steam Shovel Engineer: ARA WRIGHT ([phone])[facility] ([facility])[address] [place] [address] MCV (RBC) [Entitic vol] 92.3 fL Normal 77.0-99.0 [facility] Comment on above: Performed By: #### L [id number] ####Steam Shovel Engineer: ARA WRIGHT ([phone])[facility] ([facility])[address] [place] [address] Monocytes (Bld) [#/Vol] 0.7 10*3/uL Normal 0.0-0.9 [facility] Comment on above: Performed By: #### L [id number] ####Steam Shovel Engineer: ARA WRIGHT ([id number])[facility] ([facility])[address] [place] [address] Monocytes/100 WBC (Bld) 13.9 % High 5.0-13.0 [facility] Comment on above: Performed By: #### L [id number] ####Steam Shovel Engineer: ARA WIRGHT ([id number])[facility] ([facility])[address] [place] [address] NEUTROPHILS ABSOLUTE 2.3 10*3/uL Normal 1.8-7.5 [facility] Comment on above: Performed By: #### L [id number] ####Steam Shovel Engineer: ARA WRIGHT ([phone])[facility] ([facility])[address] [place] [address] Neutrophils/100 WBC (Bld) 48.3 % Normal 38.0-82.0 [facility] Comment on above: Performed By: #### L [id number] ####Steam Shovel Engineer: ARA WRIGHT ([phone])[facility] ([facility])[address] [place] [address] NRBC 0.0 /100 WBCs Normal 0.0-2.0 [facility] Comment on above: Performed By: #### L [id number] ####Steam Shovel Engineer: ARA WRIGHT ([phone])[facility])[address] [place] [address] Platelet mean volume (Bld) [Entitic vol] 10.2 fL Normal 9.0-12.7 [facility] Comment on above: Performed By: #### L [id number] ####Steam Shovel Engineer: ARA WRIGHT ([id number])[facility] ([facility])[address] [place] [address] Platelets (Bld) [#/Vol] 83 10*3/uL Low 140-440 [facility] Comment on above: Performed By: #### L [id number] ####Steam Shovel Engineer: ARA WRIGHT ([id number])[facility] ([facility])[address] [place] [address] RBC (Bld) [#/Vol] 3.26 10*6/uL Low 4.40-5.90 [facility] Comment on above: Performed By: #### L [id number] ####Steam Shovel Engineer: ARA WRIGHT ([id number])[facility] ([facility])[address] [place] [address] WBC (Bld) [#/Vol] 4.7 10*3/uL Normal 3.6-10.7 [facility] Comment on above: Performed By: #### L [id number] ####Steam Shovel Engineer: ARA WRIGHT ([id number])[facility] ([facility])[address] [place] [address] COMPREHENSIVE METABOLIC PANE Peter 01-22-2024 Albumin [Mass/Vol] 3.9 g/dL Normal 3.5-5.0 [facility] Comment on above: Performed By: #### L [id number], [id number] ####Steam Shovel Engineer: ARA WRIGHT ([phone])[facility] ([facility])[address] [place] [address] ALP [Catalytic activity/Vol] 43 U/L Normal 38-126 [facility] Comment on above: Performed By: #### L [id number], [id number] ####Steam Shovel Engineer: ARA WRIGHT ([phone])[facility] ([facility])[address] [place] [address] ALT [Catalytic activity/Vol] 20 U/L Normal 0-49 [facility] Comment on above: Performed By: #### L [id number], [id number] ####Steam Shovel Engineer: ARA WRIGHT ([id number])[facility] ([facility])[address] [place] [address] Anion gap [Moles/Vol] 9 mmol/L Normal 3-13 [facility] Comment on above: Performed By: #### L 103, LAB17 ####Steam Shovel Engineer: ARA WRIGHT ([phone])[facility] ([facility])[address] [place] [address] AST [Catalytic activity/Vol] 29 U/L Normal 15-46 [facility] Comment on above: Performed By: #### L [id number], [id number] ####Steam Shovel Engineer: ARA WRIGHT ([phone])[facility] ([facility])[address] [place] [address] Bilirubin [Mass/Vol] 0.4 mg/dL Normal 0.2-1.3 [facility] Comment on above: Performed By: #### L [id number], [id number] ####Steam Shovel Engineer: ARA WRIGHT ([phone])[facility])[address] [place] [address] Calcium [Mass/Vol] 9.2 mg/dL Normal 8.4-10.4 [facility] Comment on above: Performed By: #### L [id number], LAB17 ####Steam Shovel Engineer: ARA WRIGHT ([phone])[facility])[address] [place] [address] Chloride [Moles/Vol] 102 mmol/L Normal 98-107 [facility] Comment on above: Performed By: #### L [id number], LAB17 ####Steam Shovel Engineer: ARA WRIGHT ([id number])[facility] [place] [address] CO2 [Moles/Vol] 20 mmol/L Low 22-30 [facility] Comment on above: Performed By: #### L [id number], LAB17 ####Steam Shovel Engineer: ARA WRIGHT ([phone])[facility])[address] [place] [address] Creatinine [Mass/Vol] 0.71 mg/dL Normal 0.66-1.25 [facility] Comment on above: Performed By: #### L [id number], LAB17 ####Steam Shovel Engineer: ARA WRIGHT ([phone])[facility])[address] [place] [address] GLOMERULAR FILTRATION RATE ML/MIN/1.73 SQ M.PREDICTED >90.0 Normal >60.0 [facility] Comment on above: Result Comment: Calc ulation based on the Chronic Kidney Disease Epidemiology Collaboration (CKD-EPI) equation refit without adjustment for race Performed By: #### L [id number], LAB17 ####Steam Shovel Engineer: ARA WRIGHT ([id number])[facility] ([facility])[address] [place] [address] Glucose [Mass/Vol] 111 mg/dL High 70-100 [facility] Comment on above: Performed By: #### L [id number], LAB17 ####Steam Shovel Engineer: ARA WRIGHT ([phone])[facility] ([facility])[address] [place] [address] [place] Potassium [Moles/Vol] 3.4 mmol/L Low 3.5-5.1 [facility] Comment on above: Performed By: #### L [id number], LAB17 ####Steam Shovel Engineer: ARA WRIGHT ([phone])[facility])[address] [place] [address] Protein [Mass/Vol] 6.8 g/dL Normal 6.3-8.2 [facility] Comment on above: Performed By: #### L [id number], LAB17 ####Steam Shovel Engineer: ARA WRIGHT ([id number])[facility] ([facility])[address] [place] [address] Sodium [Moles/Vol] 132 mmol/L Low 135-145 [facility] Comment on above: Performed By: #### L [id number], LAB17 ####Steam Shovel Engineer: ARA WRIGHT ([phone])[facility] ([facility])[address] [place] [address] Urea nitrogen [Mass/Vol] 13 mg/dL Normal 9-20 [facility] Comment on above: Performed By: #### L [id number], LAB17 ####Steam Shovel Engineer: ARA WRIGHT ([id number])[facility])[address] [place] [address] Comprehensive metabolic 1998 panelon 01-22-2024 Albumin [Mass/Vol] 3.9 g/dL 3.5 - 5.0 g/dL [facility] ALP [Catalytic activity/Vol] 43 U/L 38 - 126 U/L [facility] ALT [Catalytic activity/Vol] 20 U/L 0 - 49 U/L [facility] Anion gap [Moles/Vol] 9 mmol/L 3 - 13 mmol/L [facility] AST [Catalytic activity/Vol] 29 U/L 15 - 46 U/L [facility] Bilirubin [Mass/Vol] 0.4 mg/dL 0.2 - 1 .3 mg/dL [facility] Calcium [Mass/Vol] 9.2 mg/dL 8.4 - 10. 4 mg/dL [facility] Chloride [Moles/Vol] 102 mmol/L 98 - 10 7 mmol/L [facility] CO2 [Moles/Vol] 20 mmol/L Low 22 - 30 mmol/L [facility] Creatinine [Mass/Vol] 0.71 mg/dL 0.66 - 1.25 mg/dL [facility] GFR/1.73 sq M.predicted MDRD (S/P/Bld) [Vol rate/Area] - PINF [facility] Comment on above: Calculation based on the Chronic Kidney Disease Epidemiology Collaboration (CKD-EPI) equation refit without adjustment for race Glucose [Mass/Vol] 111 mg/dL High 70 - 100 mg/dL [facility] Interpretation and review of laboratory results Abnormal [facility] Potassium [Moles/Vol] 3.4 mmol/L Low 3.5 - 5.1 mmol/L [facility] Protein [Mass/Vol] 6.8 g/dL 6.3 - 8.2 g/dL [facility] Sodium [Moles/Vol] 132 mmol/L Low 135 - 145 mmol/L [facility] Urea nitrogen [Mass/Vol] 13 mg/dL 9 - 20 mg/dL [facility] Consulton 01-22-2024 Consult Normal [facility] IDNon 01-22-2024 IDN Normal [facility] Laboratory - Chemistry and C hemistry - challengeon 01-22-2024 Magnesium [Mass/Vol] 1.5 mg/dL Low 1.6 - 2 .3 mg/dL [facility] MAGNESIUMon 01-22-2024 Magnesium [Mass/Vol] 1.5 mg/dL Low 1.6-2.3 [facility] Comment on above: Performed By: #### L [id number], LAB17 ####Steam Shovel Engineer: ARA WRIGHT ([phone])[address] Magnesium [Mass/Vol]on 01-21 Interpretation and review of laboratory results Abnormal [facility] Progress Noteon 01-22-2024 Progress Note Normal [facility] Progress Note Normal [facility] Progress Note Normal [facility] CARECOORDon 01-21-2024 CARECOORD Normal [facility] CBC W Auto Differential pane l (Bld)on 01-21-2024 Basophils (Bld) [#/Vol] 0.0 10*3/uL 0.0 - 0.2 10*3/uL [facility] Basophils/100 WBC (Bld) 0.4 % 0.0 - 2.0 % [facility] Eosinophils (Bld) [#/Vol] 0.1 10*3/uL 0.0 - 0.5 10*3/uL [facility] Eosinophils/100 WBC (Bld) 1.3 % 0.0 - 6.0 % [facility] Erythrocyte distribution width (RBC) [Ratio] 13.9 % 11.5 - 15.0 % [facility] Hematocrit (Bld) [Volume fraction] 33.8 % Low 40.0 - 52.0 % [facility] Hemoglobin (Bld) [Mass/Vol] 11.8 g/dL Low 13.0 - 18.0 g/dL [facility] Immature granulocytes (Bld) [#/Vol] 0.0 10*3/uL NINF - 0.1 10*3/uL [facility] Immature granulocytes/100 WBC (Bld) 0.4 % 0.0 - 2.0 % [facility] Interpretation and review of laboratory results Abnormal [facility] IPF 3 [facility] Lymphocytes (Bld) [#/Vol] 1.5 10*3/uL 1.0 - 4.3 10*3/uL [facility] Lymphocytes/100 WBC (Bld) 33.6 % 15.0 - 45.0 % [facility] MCH (RBC) [Entitic mass] 31.8 pg 26.0 - 34.0 pg [facility] MCHC (RBC) [Mass/Vol] 34.9 % 30.5 - 36.0 % [facility] MCV (RBC) [Entitic vol] 91.1 fL 77.0 - 99.0 fL [facility] Monocytes (Bld) [#/Vol] 0.5 10*3/uL 0.0 - 0.9 10*3/uL [facility] Monocytes/100 WBC (Bld) 11.4 % 5.0 - 13.0 % [facility] Neutrophils (Bld) [#/Vol] 2.4 10*3/uL 1.8 - 7.5 10*3/uL [facility] Neutrophils/100 WBC (Bld) 52.9 % 38.0 - 82.0 % [facility] Nucleated RBC/100 WBC (Bld) [Ratio] 0.0 % [facility] Platelet mean volume (Bld) [Entitic vol] 10.0 fL 9.0 - 12.7 fL [facility] Platelets (Bld) [#/Vol] 82 10*3/uL Low 140 - 440 10*3/uL [facility] RBC (Bld) [#/Vol] 3.71 10*6/uL Low 4.40 - 5.9 0 10*6/uL [facility] WBC (Bld) [#/Vol] 4.6 10*3/uL 3.6 - 10.7 10*3/uL [facility] CBC WITH AUTO DIFFERENTIALon 01-21-2024 Basophils (Bld) [#/Vol] 0.0 10*3/uL Normal 0.0-0.2 [facility] Comment on above: Performed By: #### L [id number] ####Steam Shovel Engineer: ARA WRIGHT ([id number])[facility] ([facility])[address] [place] [address] Basophils/100 WBC (Bld) 0.4 % Normal 0.0-2.0 [facility] Comment on above: Performed By: #### L [id number] ####Steam Shovel Engineer: ARA WRIGHT ([phone])[facility])[address] [place] [address] [place] Eosinophils (Bld) [#/Vol] 0.1 10*3/uL Normal 0.0-0.5 [facility] Comment on above: Performed By: #### L [id number] ####Steam Shovel Engineer: ARA WRIGHT ([id number])[facility] ([facility])[address] [place] [address] [place] Eosinophils/100 WBC (Bld) 1.3 % Normal 0.0-6.0 [facility] Comment on above: Performed By: #### L [id number] ####Steam Shovel Engineer: ARA WRIGHT ([phone])[facility])[address] [place] [address] Erythrocyte distribution width (RBC) [Ratio] 13.9 % Normal 11.5-15.0 [facility] Comment on above: Performed By: #### L [id number] ####Steam Shovel Engineer: ARA WRIGHT ([id number])[facility] ([facility])[address] [place] [address] Hematocrit (Bld) [Volume fraction] 33.8 % Low 40.0-52.0 [facility] Comment on above: Performed By: #### L [id number] ####Steam Shovel Engineer: ARA WRIGHT ([phone])[facility])[address] [place] [address] [place] Hemoglobin (Bld) [Mass/Vol] 11.8 g/dL Low 13.0-18.0 [facility] Comment on above: Performed By: #### L [id number] ####Steam Shovel Engineer: ARA WRIGHT ([phone])[facility])[address] [place] [address] IMMATURE GRANS % 0.4 % Normal 0.0-2.0 [facility] Comment on above: Performed By: #### L [id number] ####Steam Shovel Engineer: ARA WRIGHT ([phone])[facility])[address] [place] [address] IMMATURE GRANS ABSOLUTE 0.0 10*3/uL Normal <0.1 [facility] Comment on above: Performed By: #### L [id number] ####Steam Shovel Engineer: ARA WRIGHT ([phone])[facility])[address] [place] [address] IPF 3 Normal [facility] Comment on above: Performed By: #### L [id number] ####Steam Shovel Engineer: ARA WRIGHT ([id number])[facility])[address] [place] [address] Lymphocytes (Bld) [#/Vol] 1.5 10*3/uL Normal 1.0-4.3 [facility] Comment on above: Performed By: #### L [id number] ####Steam Shovel Engineer: ARA WRIGHT ([id number])[facility])[address] [place] [address] Lymphocytes/100 WBC (Bld) 33.6 % Normal 15.0-45.0 [facility] Comment on above: Performed By: #### L [id number] ####Steam Shovel Engineer: ARA WRIGHT ([id number])[facility])[address] [place] [address] MCH (RBC) [Entitic mass] 31.8 pg Normal 26.0-34.0 [facility] Comment on above: Performed By: #### L [id number] ####Steam Shovel Engineer: ARA WRIGHT ([id number])[facility] ([facility])[address] [place] [address] MCHC 34.9 % Normal 30.5-36.0 [facility] Comment on above: Performed By: #### L [id number] ####Steam Shovel Engineer: ARA WRIGHT ([id number])[facility] ([facility])[address] [place] [address] MCV (RBC) [Entitic vol] 91.1 fL Normal 77.0-99.0 [facility] Comment on above: Performed By: #### L [id number] ####Steam Shovel Engineer: ARA WRIGHT ([id number])[facility] ([facility])[address] [place] [address] Monocytes (Bld) [#/Vol] 0.5 10*3/uL Normal 0.0-0.9 [facility] Comment on above: Performed By: #### L [id number] ####Steam Shovel Engineer: ARA WRIGHT ([id number])[facility] ([facility])[address] [place] [address] Monocytes/100 WBC (Bld) 11.4 % Normal 5.0-13.0 [facility] Comment on above: Performed By: #### L [id number] ####Steam Shovel Engineer: ARA WRIGHT ([phone])[facility] ([facility])[address] [place] [address] NEUTROPHILS ABSOLUTE 2.4 10*3/uL Normal 1.8-7.5 [facility] Comment on above: Performed By: #### L [id number] ####Steam Shovel Engineer: ARA WRIGHT ([id number])[facility] ([facility])[address] [place] [address] Neutrophils/100 WBC (Bld) 52.9 % Normal 38.0-82.0 [facility] Comment on above: Performed By: #### L [id number] ####Steam Shovel Engineer: ARA WRIGHT ([phone])[facility] ([facility])[address] [place] [address] NRBC 0.0 /100 WBCs Normal 0.0-2.0 [facility] Comment on above: Performed By: #### L [id number] ####Steam Shovel Engineer: ARA WRIGHT ([phone])[facility])[address] [place] [address] Platelet mean volume (Bld) [Entitic vol] 10.0 fL Normal 9.0-12.7 [facility] Comment on above: Performed By: #### L [id number] ####Steam Shovel Engineer: ARA WRIGHT ([id number])[facility] ([facility])[address] [place] [address] Platelets (Bld) [#/Vol] 82 10*3/uL Low 140-440 [facility] Comment on above: Performed By: #### L [id number] ####Steam Shovel Engineer: ARA WRIGHT ([phone])[facility])[address] [place] [address] RBC (Bld) [#/Vol] 3.71 10*6/uL Low 4.40-5.90 [facility] Comment on above: Performed By: #### L [id number] ####Steam Shovel Engineer: ARA WRIGHT ([phone])[facility])[address] [place] [address] WBC (Bld) [#/Vol] 4.6 10*3/uL Normal 3.6-10.7 [facility] Comment on above: Performed By: #### L [id number] ####Steam Shovel Engineer: ARA WRIGHT ([phone])[facility])[address] [place] [address] COMPREHENSIVE METABOLIC PANE Peter 01-21-2024 Albumin [Mass/Vol] 4.0 g/dL Normal 3.5-5.0 [facility] Comment on above: Performed By: #### L [id number] ####Steam Shovel Engineer: ARA WRIGHT ([phone])[facility])[address] [place] [address] ALP [Catalytic activity/Vol] 56 U/L Normal 38-126 [facility] Comment on above: Performed By: #### L [id number] ####Steam Shovel Engineer: ARA WRIGHT ([id number])[facility] ([facility])[address] [place] [address] ALT [Catalytic activity/Vol] 22 U/L Normal 0-49 [facility] Comment on above: Performed By: #### L [id number] ####Steam Shovel Engineer: ARA WRIGHT ([id number])[facility] ([facility])[address] [place] [address] Anion gap [Moles/Vol] 7 mmol/L Normal 3-13 [facility] Comment on above: Performed By: #### L [id number] ####Steam Shovel Engineer: ARA WRIGHT ([id number])[facility] ([facility])[address] [place] [address] AST [Catalytic activity/Vol] 33 U/L Normal 15-46 [facility] Comment on above: Performed By: #### L [id number] ####Steam Shovel Engineer: ARA WRIGHT ([phone])[facility] ([facility])[address] [place] [address] Bilirubin [Mass/Vol] 0.5 mg/dL Normal 0.2-1.3 [facility] Comment on above: Performed By: #### L [id number] ####Steam Shovel Engineer: ARA WRIGHT ([id number])[facility] ([facility])[address] [place] [address] Calcium [Mass/Vol] 9.6 mg/dL Normal 8.4-10.4 [facility] Comment on above: Performed By: #### L [id number] ####Steam Shovel Engineer: ARA WRIGHT ([phone])[facility] ([facility])[address] [place] [address] [place] Chloride [Moles/Vol] 104 mmol/L Normal 98-107 [facility] Comment on above: Performed By: #### L [id number] ####Steam Shovel Engineer: ARA WRIGHT ([phone])[facility] ([facility])[address] [place] [address] [place] CO2 [Moles/Vol] 22 mmol/L Normal 22-30 [facility] Comment on above: Performed By: #### L [id number] ####Steam Shovel Engineer: ARA WRIGHT ([phone])[facility] ([facility])[address] [place] [address] Creatinine [Mass/Vol] 0.75 mg/dL Normal 0.66-1.25 [facility] Comment on above: Performed By: #### L [id number] ####Steam Shovel Engineer: ARA WRIGHT ([id number])[facility] ([facility])[address] [place] [address] GLOMERULAR FILTRATION RATE ML/MIN/1.73 SQ M.PREDICTED >90.0 Normal >60.0 [facility] Comment on above: Result Comment: Calc ulation based on the Chronic Kidney Disease Epidemiology Collaboration (CKD-EPI) equation refit without adjustment for race Performed By: #### L [id number] ####Steam Shovel Engineer: ARA WRIGHT ([id number])[facility] ([facility])[address] [place] [address] Glucose [Mass/Vol] 101 mg/dL High 70-100 [facility] Comment on above: Performed By: #### L [id number] ####Steam Shovel Engineer: ARA WRIGHT ([id number])[facility] ([facility])[address] [place] [address] [place] Potassium [Moles/Vol] 3.7 mmol/L Normal 3.5-5.1 [facility] Comment on above: Performed By: #### L [id number] ####Steam Shovel Engineer: ARA WRIGHT ([phone])[facility] ([facility])[address] [place] [address] [place] Protein [Mass/Vol] 7.1 g/dL Normal 6.3-8.2 [facility] Comment on above: Performed By: #### L [id number] ####Steam Shovel Engineer: ARA WRIGHT ([phone])[facility] ([facility])[address] [place] [address] [place] Sodium [Moles/Vol] 133 mmol/L Low 135-145 [facility] Comment on above: Performed By: #### L [id number] ####Steam Shovel Engineer: ARA WRIGHT ([id number])[facility] ([facility])[address] [place] [address] Urea nitrogen [Mass/Vol] 14 mg/dL Normal 9-20 [facility] Comment on above: Performed By: #### L [id number] ####Steam Shovel Engineer: ARA WRIGHT ([id number])[facility] ([facility])[address] [place] [address] Comprehensive metabolic 1998 panelon 01-21-2024 Albumin [Mass/Vol] 4.0 g/dL 3.5 - 5.0 g/dL [facility] ALP [Catalytic activity/Vol] 56 U/L 38 - 126 U/L [facility] ALT [Catalytic activity/Vol] 22 U/L 0 - 49 U/L [facility] Anion gap [Moles/Vol] 7 mmol/L 3 - 13 mmol/L [facility] AST [Catalytic activity/Vol] 33 U/L 15 - 46 U/L [facility] Bilirubin [Mass/Vol] 0.5 mg/dL 0.2 - 1 .3 mg/dL [facility] Calcium [Mass/Vol] 9.6 mg/dL 8.4 - 10. 4 mg/dL [facility] Chloride [Moles/Vol] 104 mmol/L 98 - 10 7 mmol/L [facility] CO2 [Moles/Vol] 22 mmol/L 22 - 30 mmol/L [facility] Creatinine [Mass/Vol] 0.75 mg/dL 0.66 - 1.25 mg/dL [facility] GFR/1.73 sq M.predicted MDRD (S/P/Bld) [Vol rate/Area] - PINF [facility] Comment on above: Calculation based on the Chronic Kidney Disease Epidemiology Collaboration (CKD-EPI) equation refit without adjustment for race Glucose [Mass/Vol] 101 mg/dL High 70 - 100 mg/dL [facility] Interpretation and review of laboratory results Abnormal [facility] Potassium [Moles/Vol] 3.7 mmol/L 3.5 - 5.1 mmol/L [facility] Protein [Mass/Vol] 7.1 g/dL 6.3 - 8.2 g/dL [facility] Sodium [Moles/Vol] 133 mmol/L Low 135 - 145 mmol/L [facility] Urea nitrogen [Mass/Vol] 14 mg/dL 9 - 20 mg/dL [facility] No Panel Informationon 01-20 No evidence of [...] filling and normal phasic and spontaneous flow. Rolling Attendant Details A chaudhry scale, color Doppler imaging and spectral Doppler analysis ultrasound was performed. During the study longitudinal views were obtained. The exam was performed with the patient in the supine position. Overall the study quality was adequate. Study was technically difficult due to: bedside exam. CV CPACS Nursing Noteon 01-21-2024 Nursing Note Normal [facility] Progress Noteon 01-21-2024 Progress Note Normal [facility] Progress Note Normal [facility] CARECOORDon 01-20-2024 [facility] Called pt to discuss SDOH resources; pt did not answer phone. Will reach out again; noted PT recommending snf. Normal [facility] CARECOORD Normal [facility] CBC W Auto Differential pane l (Bld)Ordered By: Oksana Hurst on 01-20-2024 Basophils (Bld) [#/Vol] 0.0 10*3/uL 0.0 - 0.2 10*3/uL [facility] Basophils/100 WBC (Bld) 0.4 % 0.0 - 2.0 % [facility] Eosinophils (Bld) [#/Vol] 0.1 10*3/uL 0.0 - 0.5 10*3/uL [facility] Eosinophils/100 WBC (Bld) 1.7 % 0.0 - 6.0 % [facility] Erythrocyte distribution width (RBC) [Ratio] 13.6 % 11.5 - 15.0 % [facility] Hematocrit (Bld) [Volume fraction] 33.2 % Low 40.0 - 52.0 % [facility] Hemoglobin (Bld) [Mass/Vol] 11.7 g/dL Low 13.0 - 18.0 g/dL [facility] Immature granulocytes (Bld) [#/Vol] 0.0 10*3/uL NINF - 0.1 10*3/uL [facility] Immature granulocytes/100 WBC (Bld) 0.4 % 0.0 - 2.0 % [facility] Interpretation and review of laboratory results Abnormal [facility] IPF 4 [facility] Lymphocytes (Bld) [#/Vol] 1.9 10*3/uL 1.0 - 4.3 10*3/uL [facility] Lymphocytes/100 WBC (Bld) 35.7 % 15.0 - 45.0 % [facility] MCH (RBC) [Entitic mass] 32.0 pg 26.0 - 34.0 pg [facility] MCHC (RBC) [Mass/Vol] 35.2 % 30.5 - 36.0 % [facility] MCV (RBC) [Entitic vol] 90.7 fL 77.0 - 99.0 fL [facility] Monocytes (Bld) [#/Vol] 0.6 10*3/uL 0.0 - 0.9 10*3/uL [facility] Monocytes/100 WBC (Bld) 11.3 % 5.0 - 13.0 % [facility] Neutrophils (Bld) [#/Vol] 2.7 10*3/uL 1.8 - 7.5 10*3/uL [facility] Neutrophils/100 WBC (Bld) 50.5 % 38.0 - 82.0 % [facility] Nucleated RBC/100 WBC (Bld) [Ratio] 0.0 % [facility] Platelet mean volume (Bld) [Entitic vol] 10.1 fL 9.0 - 12.7 fL [facility] Platelets (Bld) [#/Vol] 79 10*3/uL Low 140 - 440 10*3/uL [facility] RBC (Bld) [#/Vol] 3.66 10*6/uL Low 4.40 - 5.9 0 10*6/uL [facility] WBC (Bld) [#/Vol] 5.3 10*3/uL 3.6 - 10.7 10*3/uL [facility] CBC WITH AUTO DIFFERENTIALon 01-20-2024 Basophils (Bld) [#/Vol] 0.0 10*3/uL Normal 0.0-0.2 [facility] Comment on above: Performed By: #### L [id number] ####Steam Shovel Engineer: ARA WRIGHT ([id number])[address] Basophils/100 WBC (Bld) 0.4 % Normal 0.0-2.0 [facility] Comment on above: Performed By: #### L [id number] ####Steam Shovel Engineer: ARA WRIGHT ([id number])[address] Eosinophils (Bld) [#/Vol] 0.1 10*3/uL Normal 0.0-0.5 [facility] Comment on above: Performed By: #### L [id number] ####Steam Shovel Engineer: ARA WRIGHT ([id number])[facility])[address] [place] [address] Eosinophils/100 WBC (Bld) 1.7 % Normal 0.0-6.0 [facility] Comment on above: Performed By: #### L [id number] ####Steam Shovel Engineer: ARA WRIGHT ([id number])[address] Erythrocyte distribution width (RBC) [Ratio] 13.6 % Normal 11.5-15.0 [facility] Comment on above: Performed By: #### L [id number] ####Steam Shovel Engineer: ARA WRIGHT ([id number])[facility])[address] [place] [address] Hematocrit (Bld) [Volume fraction] 33.2 % Low 40.0-52.0 [facility] Comment on above: Performed By: #### L [id number] ####Steam Shovel Engineer: ARA WRIGHT ([id number])[facility])[address] [place] [address] Hemoglobin (Bld) [Mass/Vol] 11.7 g/dL Low 13.0-18.0 [facility] Comment on above: Performed By: #### L [id number] ####Steam Shovel Engineer: ARA WRIGHT ([phone])[facility])[address] [place] [address] IMMATURE GRANS % 0.4 % Normal 0.0-2.0 [facility] Comment on above: Performed By: #### L [id number] ####Steam Shovel Engineer: ARA WRIGHT ([id number])[facility])[address] [place] [address] IMMATURE GRANS ABSOLUTE 0.0 10*3/uL Normal <0.1 [facility] Comment on above: Performed By: #### L [id number] ####Steam Shovel Engineer: ARA WRIGHT ([id number])[facility])[address] [place] [address] IPF 4 Normal [facility] Comment on above: Performed By: #### L [id number] ####Steam Shovel Engineer: ARA WRIGHT ([phone])[facility])[address] [place] [address] Lymphocytes (Bld) [#/Vol] 1.9 10*3/uL Normal 1.0-4.3 [facility] Comment on above: Performed By: #### L [id number] ####Steam Shovel Engineer: ARA WRIGHT ([id number])[facility])[address] [place] [address] [place] Lymphocytes/100 WBC (Bld) 35.7 % Normal 15.0-45.0 [facility] Comment on above: Performed By: #### L [id number] ####Steam Shovel Engineer: ARA WRIGHT ([phone])[facility] ([facility])[address] [place] [address] MCH (RBC) [Entitic mass] 32.0 pg Normal 26.0-34.0 [facility] Comment on above: Performed By: #### L [id number] ####Steam Shovel Engineer: ARA WRIGHT ([phone])[facility] ([facility])[address] [place] [address] MCHC 35.2 % Normal 30.5-36.0 [facility] Comment on above: Performed By: #### L [id number] ####Steam Shovel Engineer: ARA WRIGHT ([id number])[facility])[address] [place] [address] MCV (RBC) [Entitic vol] 90.7 fL Normal 77.0-99.0 [facility] Comment on above: Performed By: #### L [id number] ####Steam Shovel Engineer: ARA WRIGHT ([id number])[facility] ([facility])[address] [place] [address] Monocytes (Bld) [#/Vol] 0.6 10*3/uL Normal 0.0-0.9 [facility] Comment on above: Performed By: #### L [id number] ####Steam Shovel Engineer: ARA WRIGHT ([id number])[facility] ([facility])[address] [place] [address] Monocytes/100 WBC (Bld) 11.3 % Normal 5.0-13.0 [facility] Comment on above: Performed By: #### L [id number] ####Steam Shovel Engineer: ARA WRIGHT ([id number])[facility])[address] [place] [address] NEUTROPHILS ABSOLUTE 2.7 10*3/uL Normal 1.8-7.5 [facility] Comment on above: Performed By: #### L [id number] ####Steam Shovel Engineer: ARA WRIGHT ([id number])[facility])[address] [place] [address] Neutrophils/100 WBC (Bld) 50.5 % Normal 38.0-82.0 [facility] Comment on above: Performed By: #### L [id number] ####Steam Shovel Engineer: ARA WRIGHT ([id number])[facility])[address] [place] [address] NRBC 0.0 /100 WBCs Normal 0.0-2.0 [facility] Comment on above: Performed By: #### L [id number] ####Steam Shovel Engineer: ARA WRIGHT ([id number])[facility])[address] [place] [address] Platelet mean volume (Bld) [Entitic vol] 10.1 fL Normal 9.0-12.7 [facility] Comment on above: Performed By: #### L [id number] ####Steam Shovel Engineer: ARA WRIGHT ([id number])[facility] ([facility])[address] [place] [address] Platelets (Bld) [#/Vol] 79 10*3/uL Low 140-440 [facility] Comment on above: Performed By: #### L [id number] ####Steam Shovel Engineer: ARA WRIGHT ([id number])[facility])[address] [place] [address] RBC (Bld) [#/Vol] 3.66 10*6/uL Low 4.40-5.90 [facility] Comment on above: Performed By: #### L [id number] ####Steam Shovel Engineer: ARA WRIGHT ([id number])[facility])[address] [place] [address] WBC (Bld) [#/Vol] 5.3 10*3/uL Normal 3.6-10.7 [facility] Comment on above: Performed By: #### L [id number] ####Steam Shovel Engineer: ARA WRIGHT ([id number])[facility] [place] [address] COMPREHENSIVE METABOLIC PANE Peter 01-20-2024 Albumin [Mass/Vol] 4.0 g/dL Normal 3.5-5.0 [facility] Comment on above: Performed By: #### L [id number], LAB17 ####Steam Shovel Engineer: ARA WRIGHT ([id number])[facility] ([facility])[address] [place] [address] ALP [Catalytic activity/Vol] 58 U/L Normal 38-126 [facility] Comment on above: Performed By: #### L [id number], LAB17 ####Steam Shovel Engineer: ARA WRIGHT ([id number])[facility] ([facility])[address] [place] [address] ALT [Catalytic activity/Vol] 21 U/L Normal 0-49 [facility] Comment on above: Performed By: #### L [id number], LAB17 ####Steam Shovel Engineer: ARA WRIGHT ([id number])[facility] ([facility])[address] [place] [address] Anion gap [Moles/Vol] 9 mmol/L Normal 3-13 [facility] Comment on above: Performed By: #### L [id number], LAB17 ####Steam Shovel Engineer: ARA WRIGHT ([id number])[facility] ([facility])[address] [place] [address] [place] AST [Catalytic activity/Vol] 38 U/L Normal 15-46 [facility] Comment on above: Performed By: #### L [id number], LAB17 ####Steam Shovel Engineer: ARA WRIGHT ([id number])[facility] ([facility])[address] [place] [address] [place] Bilirubin [Mass/Vol] 0.5 mg/dL Normal 0.2-1.3 [facility] Comment on above: Performed By: #### L AB137, LAB17 ####Steam Shovel Engineer: ARA WRIGHT ([id number])[facility] ([facility])[address] [place] [address] [place] Calcium [Mass/Vol] 9.2 mg/dL Normal 8.4-10.4 [facility] Comment on above: Performed By: #### L [id number], LAB17 ####Steam Shovel Engineer: ARA WRIGHT ([id number])[facility] [place] [address] Chloride [Moles/Vol] 98 mmol/L Normal 98-107 [facility] Comment on above: Performed By: #### L [id number], LAB17 ####Steam Shovel Engineer: ARA WRIGHT ([id number])[facility] [place] [address] CO2 [Moles/Vol] 21 mmol/L Low 22-30 [facility] Comment on above: Performed By: #### L AB137, LAB17 ####Steam Shovel Engineer: ARA WRIGHT ([id number])[facility] ([facility])[address] [place] [address] Creatinine [Mass/Vol] 0.74 mg/dL Normal 0.66-1.25 [facility] Comment on above: Performed By: #### L AB137, LAB17 ####Steam Shovel Engineer: ARA WRIGHT ([id number])[facility] ([facility])[address] [place] [address] GLOMERULAR FILTRATION RATE ML/MIN/1.73 SQ M.PREDICTED >90.0 Normal >60.0 [facility] Comment on above: Result Comment: Calc ulation based on the Chronic Kidney Disease Epidemiology Collaboration (CKD-EPI) equation refit without adjustment for race Performed By: #### L [id number], LAB17 ####Steam Shovel Engineer: ARA WRIGHT ([id number])[facility] ([facility])[address] [place] [address] [place] Glucose [Mass/Vol] 100 mg/dL Normal 70-100 [facility] Comment on above: Performed By: #### L [id number], LAB17 ####Steam Shovel Engineer: ARA [id number])[facility] ([facility])[address] [place] [address] [place] Potassium [Moles/Vol] 3.7 mmol/L Normal 3.5-5.1 [facility] Comment on above: Performed By: #### L AB137, LAB17 ####Steam Shovel Engineer: ARA WRIGHT ([id number])[facility] ([facility])[address] [place] [address] Protein [Mass/Vol] 7.0 g/dL Normal 6.3-8.2 [facility] Comment on above: Performed By: #### L [id number], LAB17 ####Steam Shovel Engineer: ARA WRIGHT ([id number])[facility] ([facility])[address] [place] [address] Sodium [Moles/Vol] 129 mmol/L Low 135-145 [facility] Comment on above: Performed By: #### L [id number], LAB17 ####Steam Shovel Engineer: ARA WRIGHT ([phone])[facility] ([facility])[address] [place] [address] Urea nitrogen [Mass/Vol] 8 mg/dL Low 9-20 [facility] Comment on above: Performed By: #### L [id number], LAB17 ####Steam Shovel Engineer: ARA WRIGHT ([id number])[facility] ([facility])[address] [place] [address] Comprehensive metabolic 1998 panelon 01-20-2024 Albumin [Mass/Vol] 4.0 g/dL 3.5 - 5.0 g/dL [facility] ALP [Catalytic activity/Vol] 58 U/L 38 - 126 U/L [facility] ALT [Catalytic activity/Vol] 21 U/L 0 - 49 U/L [facility] Anion gap [Moles/Vol] 9 mmol/L 3 - 13 mmol/L [facility] AST [Catalytic activity/Vol] 38 U/L 15 - 46 U/L [facility] Bilirubin [Mass/Vol] 0.5 mg/dL 0.2 - 1 .3 mg/dL [facility] Calcium [Mass/Vol] 9.2 mg/dL 8.4 - 10. 4 mg/dL [facility] Chloride [Moles/Vol] 98 mmol/L 98 - 10 7 mmol/L [facility] CO2 [Moles/Vol] 21 mmol/L Low 22 - 30 mmol/L [facility] Creatinine [Mass/Vol] 0.74 mg/dL 0.66 - 1.25 mg/dL [facility] GFR/1.73 sq M.predicted MDRD (S/P/Bld) [Vol rate/Area] - PINF [facility] Comment on above: Calculation based on the Chronic Kidney Disease Epidemiology Collaboration (CKD-EPI) equation refit without adjustment for race Glucose [Mass/Vol] 100 mg/dL 70 - 100 mg/dL [facility] Interpretation and review of laboratory results Abnormal [facility] Potassium [Moles/Vol] 3.7 mmol/L 3.5 - 5.1 mmol/L [facility] Protein [Mass/Vol] 7.0 g/dL 6.3 - 8.2 g/dL [facility] Sodium [Moles/Vol] 129 mmol/L Low 135 - 145 mmol/L [facility] Urea nitrogen [Mass/Vol] 8 mg/dL Low 9 - 20 mg/dL [facility] ECG 12-LEADon 01-20-2024 ECG 12-LEAD IMPRESSION: Sinus rhythm RBBB and LAFB Electronically Signed On 01-20-2024 12:33:18 EDT by Júnior Salter Normal [facility] FREE T4on 01-20-2024 Free T4 [Mass/Vol] 1.07 ng/dL Normal 0.78-2.19 [facility] Comment on above: Performed By: #### L AB127 ####Steam Shovel Engineer: ARA WRIGHT ([id number])[address] Free T3 [Mass/Vol]on Interpretation and review of laboratory results Normal [facility] Free T4 [Mass/Vol]on Free T4 Dialysis [Mass/Vol] 1.07 ng/dL 0.78 - 2.19 ng/dL [facility] Interpretation and review of laboratory results Normal [facility] Laboratory - Chemistry and C hemistry - challengeon 01-20-2024 Free T3 [Mass/Vol] 3.48 pg/mL 2.77 - 5. 27 pg/mL [facility] No Panel InformationOrdered By: Júnior Salter on 01-20-2024 P [place] 47 degrees [facility] Work Phone: W[place] Interval 162 ms [employer]ach[employer] Work Phone: QRS [place] -50 degrees [employer] Work Phone: QRSD Interval 138 ms [employer] Work Phone: QT Interval 394 ms [employer] Work Phone: QTC Interval 471 ms simfy Phone: T Wave [place] 7 degrees simfy Phone: [employer]ach[employer] Work Phone: No Panel Informationon 01-19 Sinus rhythm RBBB and LAFB Electronically Signed On 01-20-2024 12:33:18 EDT by Júnior Dockery MD - 01/20/2024 IMPRESSION: Sinus rhythm RBBB and LAFB Electronically Signed On 01-20-2024 12:33:18 EDT by Júnior Salter [facility] Progress Noteon 01-20-2024 Progress Note Normal [facility] Progress Note Normal [facility] Progress Note Normal [facility] T3 FREEon 01-20-2024 Free T3 [Mass/Vol] 3.48 pg/mL Normal 2.77-5.27 [facility] Comment on above: Performed By: #### L AB137, LAB17 ####Steam Shovel Engineer: ARA WRIGHT ([id number])[address] Vital signsOrdered By: Júnior Salter on 01-20-2024 Heart rate 86 /min bpm [facility] Work Phone: CARECOORDon 01-19-2024 CARECOORD Normal [facility] CBC W Auto Differential pane l (Bld)on 01-19-2024 Basophils (Bld) [#/Vol] 0.0 10*3/uL 0.0 - 0.2 10*3/uL [facility] BemDireto Basophils/100 WBC (Bld) 0.4 % 0.0 - 2.0 % [facility]em[facility]to Eosinophils (Bld) [#/Vol] 0.1 10*3/uL 0.0 - 0.5 10*3/uL [facility] Eosinophils/100 WBC (Bld) 1.4 % 0.0 - 6.0 % [facility] Erythrocyte distribution width (RBC) [Ratio] 13.4 % 11.5 - 15.0 % [facility] Hematocrit (Bld) [Volume fraction] 33.2 % Low 40.0 - 52.0 % [facility] Hemoglobin (Bld) [Mass/Vol] 11.5 g/dL Low 13.0 - 18.0 g/dL [facility] Immature granulocytes (Bld) [#/Vol] 0.0 10*3/uL NINF - 0.1 10*3/uL [facility] Immature granulocytes/100 WBC (Bld) 0.2 % 0.0 - 2.0 % [facility] Interpretation and review of laboratory results Abnormal [facility] IPF 3 [facility] Lymphocytes (Bld) [#/Vol] 1.8 10*3/uL 1.0 - 4.3 10*3/uL [facility] Lymphocytes/100 WBC (Bld) 31.7 % 15.0 - 45.0 % [facility] MCH (RBC) [Entitic mass] 31.8 pg 26.0 - 34.0 pg [facility] MCHC (RBC) [Mass/Vol] 34.6 % 30.5 - 36.0 % [facility] MCV (RBC) [Entitic vol] 91.7 fL 77.0 - 99.0 fL [facility] Monocytes (Bld) [#/Vol] 0.5 10*3/uL 0.0 - 0.9 10*3/uL [facility] Monocytes/100 WBC (Bld) 8.6 % 5.0 - 13.0 % [facility] Neutrophils (Bld) [#/Vol] 3.2 10*3/uL 1.8 - 7.5 10*3/uL [facility] Neutrophils/100 WBC (Bld) 57.7 % 38.0 - 82.0 % [facility] Nucleated RBC/100 WBC (Bld) [Ratio] 0.0 % [facility] Platelet mean volume (Bld) [Entitic vol] 10.0 fL 9.0 - 12.7 fL [facility] Platelets (Bld) [#/Vol] 70 10*3/uL Low 140 - 440 10*3/uL [facility] RBC (Bld) [#/Vol] 3.62 10*6/uL Low 4.40 - 5.9 0 10*6/uL [facility] WBC (Bld) [#/Vol] 5.6 10*3/uL 3.6 - 10.7 10*3/uL [facility] CBC WITH AUTO DIFFERENTIALon 01-19-2024 Basophils (Bld) [#/Vol] 0.0 10*3/uL Normal 0.0-0.2 [facility] Comment on above: Performed By: #### L [id number] ####Steam Shovel Engineer: ARA WRIGHT ([phone])[facility])[address] [place] [address] Basophils/100 WBC (Bld) 0.4 % Normal 0.0-2.0 [facility] Comment on above: Performed By: #### L [id number] ####Steam Shovel Engineer: ARA WRIGHT ([id number])[facility])[address] [place] [address] Eosinophils (Bld) [#/Vol] 0.1 10*3/uL Normal 0.0-0.5 [facility] Comment on above: Performed By: #### L [id number] ####Steam Shovel Engineer: ARA WRIGHT ([phone])[facility])[address] [place] [address] Eosinophils/100 WBC (Bld) 1.4 % Normal 0.0-6.0 [facility] Comment on above: Performed By: #### L [id number] ####Steam Shovel Engineer: ARA WRIGHT ([id number])[facility] ([facility])[address] [place] [address] Erythrocyte distribution width (RBC) [Ratio] 13.4 % Normal 11.5-15.0 [facility] Comment on above: Performed By: #### L [id number] ####Steam Shovel Engineer: ARA WRIGHT ([id number])[facility] ([facility])[address] [place] [address] [place] Hematocrit (Bld) [Volume fraction] 33.2 % Low 40.0-52.0 [facility] Comment on above: Performed By: #### L [id number] ####Steam Shovel Engineer: ARA WRIGHT ([id number])[facility])[address] [place] [address] Hemoglobin (Bld) [Mass/Vol] 11.5 g/dL Low 13.0-18.0 [facility] Comment on above: Performed By: #### L [id number] ####Steam Shovel Engineer: ARA WRIGHT ([phone])[facility])[address] [place] [address] IMMATURE GRANS % 0.2 % Normal 0.0-2.0 [facility] Comment on above: Performed By: #### L [id number] ####Steam Shovel Engineer: ARA WRIGHT ([id number])[facility])[address] [place] [address] IMMATURE GRANS ABSOLUTE 0.0 10*3/uL Normal <0.1 [facility] Comment on above: Performed By: #### L [id number] ####Steam Shovel Engineer: ARA WRIGHT ([phone])[facility])[address] [place] [address] [place] IPF 3 Normal [facility] Comment on above: Performed By: #### L [id number] ####Steam Shovel Engineer: ARA WRIGHT ([id number])[facility])[address] [place] [address] Lymphocytes (Bld) [#/Vol] 1.8 10*3/uL Normal 1.0-4.3 [facility] Comment on above: Performed By: #### L [id number] ####Steam Shovel Engineer: ARA WRIGHT ([id number])[facility])[address] [place] [address] Lymphocytes/100 WBC (Bld) 31.7 % Normal 15.0-45.0 [facility] Comment on above: Performed By: #### L [id number] ####Steam Shovel Engineer: ARA WRIGHT ([id number])[facility])[address] [place] [address] MCH (RBC) [Entitic mass] 31.8 pg Normal 26.0-34.0 [facility] Comment on above: Performed By: #### L [id number] ####Steam Shovel Engineer: ARA WRIGHT ([id number])[facility])[address] [place] [address] MCHC 34.6 % Normal 30.5-36.0 [facility] Comment on above: Performed By: #### L [id number] ####Steam Shovel Engineer: ARA WRIGHT ([id number])[facility])[address] [place] [address] MCV (RBC) [Entitic vol] 91.7 fL Normal 77.0-99.0 [facility] Comment on above: Performed By: #### L [id number] ####Steam Shovel Engineer: ARA WRIGHT ([id number])[facility])[address] [place] [address] Monocytes (Bld) [#/Vol] 0.5 10*3/uL Normal 0.0-0.9 [facility] Comment on above: Performed By: #### L [id number] ####Steam Shovel Engineer: ARA WRIGHT ([id number])[facility])[address] [place] [address] Monocytes/100 WBC (Bld) 8.6 % Normal 5.0-13.0 [facility] Comment on above: Performed By: #### L [id number] ####Steam Shovel Engineer: ARA WRIGHT ([id number])[facility])[address] [place] [address] NEUTROPHILS ABSOLUTE 3.2 10*3/uL Normal 1.8-7.5 [facility] Comment on above: Performed By: #### L [id number] ####Steam Shovel Engineer: ARA WRIGHT ([phone])[facility])[address] [place] [address] Neutrophils/100 WBC (Bld) 57.7 % Normal 38.0-82.0 [facility] Comment on above: Performed By: #### L [id number] ####Steam Shovel Engineer: ARA WRIGHT ([id number])[facility])[address] [place] [address] NRBC 0.0 /100 WBCs Normal 0.0-2.0 [facility] Comment on above: Performed By: #### L [id number] ####Steam Shovel Engineer: ARA WRIGHT ([id number])[facility] ([facility])[address] [place] [address] Platelet mean volume (Bld) [Entitic vol] 10.0 fL Normal 9.0-12.7 [facility] Comment on above: Performed By: #### L [id number] ####Steam Shovel Engineer: ARA WRIGHT ([id number])[facility] ([facility])[address] [place] [address] Platelets (Bld) [#/Vol] 70 10*3/uL Low 140-440 [facility] Comment on above: Performed By: #### L [id number] ####Steam Shovel Engineer: ARA WRIGHT ([id number])[facility] ([facility])[address] [place] [address] RBC (Bld) [#/Vol] 3.62 10*6/uL Low 4.40-5.90 [facility] Comment on above: Performed By: #### L [id number] ####Steam Shovel Engineer: ARA WRIGHT ([id number])[facility] ([facility])[address] [place] [address] WBC (Bld) [#/Vol] 5.6 10*3/uL Normal 3.6-10.7 [facility] Comment on above: Performed By: #### L [id number] ####Steam Shovel Engineer: ARA WRIGHT ([id number])[facility] ([facility])[address] [place] [address] COMPREHENSIVE METABOLIC PANE Peter 01-19-2024 Albumin [Mass/Vol] 3.9 g/dL Normal 3.5-5.0 [facility] Comment on above: Performed By: #### Popeye AB17, [id number], [id number] ####Steam Shovel Engineer: ARA WRIGHT ([id number])[facility] ([facility])[address] [place] [address] ALP [Catalytic activity/Vol] 56 U/L Normal 38-126 [facility] Comment on above: Performed By: #### [place] AB17, [id number], [id number] ####Steam Shovel Engineer: ARA WRIGHT ([id number])[facility] ([facility])[address] [place] [address] ALT [Catalytic activity/Vol] 16 U/L Normal 0-49 [facility] Comment on above: Performed By: #### [place] AB17, [id number], [id number] ####Steam Shovel Engineer: ARA WRIGHT ([id number])[facility] ([facility])[address] [place] [address] Anion gap [Moles/Vol] 9 mmol/L Normal 3-13 [facility] Comment on above: Performed By: #### Popeye WOOD, [id number], [id number] ####Steam Shovel Engineer: ARA WRIGHT ([id number])[facility] ([facility])[address] [place] [address] AST [Catalytic activity/Vol] 27 U/L Normal 15-46 [facility] Comment on above: Performed By: #### Pope[place] WOOD, [id number], [id number] ####Steam Shovel Engineer: ARA WRIGHT ([id number])[facility] ([facility])[address] [place] [address] Bilirubin [Mass/Vol] 0.5 mg/dL Normal 0.2-1.3 [facility] Comment on above: Performed By: #### [place] AB17, [id number], [id number] ####Steam Shovel Engineer: ARA WRIGHT ([id number])[facility] ([facility])[address] [place] [address] Calcium [Mass/Vol] 9.2 mg/dL Normal 8.4-10.4 [facility] Comment on above: Performed By: #### L AB17, [id number], [id number] ####Steam Shovel Engineer: ARA WRIGHT ([id number])[facility] ([facility])[address] [place] [address] [place] Chloride [Moles/Vol] 100 mmol/L Normal 98-107 [facility] Comment on above: Performed By: #### L AB17, [id number], [id number] ####Steam Shovel Engineer: ARA WRIGHT ([id number])[facility] ([facility])[address] [place] [address] CO2 [Moles/Vol] 20 mmol/L Low 22-30 [facility] Comment on above: Performed By: #### [place] AB17, [id number], [id number] ####Steam Shovel Engineer: ARA WRIGHT ([id number])[facility] ([facility])[address] [place] [address] Creatinine [Mass/Vol] 0.72 mg/dL Normal 0.66-1.25 [facility] Comment on above: Performed By: #### [place] AB17, [id number], [id number] ####Steam Shovel Engineer: ARA WRIGHT ([id number])[facility])[address] [place] [address] GLOMERULAR FILTRATION RATE ML/MIN/1.73 SQ M.PREDICTED >90.0 Normal >60.0 [facility] Comment on above: Result Comment: Calc ulation based on the Chronic Kidney Disease Epidemiology Collaboration (CKD-EPI) equation refit without adjustment for race Performed By: #### [place] AB17, [id number], [id number] ####Steam Shovel Engineer: ARA WRIGHT ([id number])[facility] ([facility])[address] [place] [address] [place] Glucose [Mass/Vol] 126 mg/dL High 70-100 [facility] Comment on above: Performed By: #### L AB17, [id number], [id number] ####Steam Shovel Engineer: ARA WRIGHT ([id number])[facility])[address] [place] [address] Potassium [Moles/Vol] 3.7 mmol/L Normal 3.5-5.1 [facility] Comment on above: Performed By: #### L AB17, [id number], [id number] ####Steam Shovel Engineer: ARA WRIGHT ([id number])[facility] [place] [address] Protein [Mass/Vol] 6.9 g/dL Normal 6.3-8.2 [facility] Comment on above: Performed By: #### L AB17, [id number], [id number] ####Steam Shovel Engineer: ARA WRIGHT ([id number])[facility])[address] [place] [address] Sodium [Moles/Vol] 129 mmol/L Low 135-145 [facility] Comment on above: Performed By: #### L AB17, [id number], [id number] ####Steam Shovel Engineer: ARA WRIGHT ([id number])[facility] ([facility])[address] [place] [address] Urea nitrogen [Mass/Vol] 14 mg/dL Normal 9-20 [facility] Comment on above: Performed By: #### L AB17, [id number], [id number] ####Steam Shovel Engineer: ARA WRIGHT ([id number])[facility] ([facility])[address] [place] [address] Comprehensive metabolic 1998 panelon 01-19-2024 Albumin [Mass/Vol] 3.9 g/dL 3.5 - 5.0 g/dL [facility] ALP [Catalytic activity/Vol] 56 U/L 38 - 126 U/L [facility] ALT [Catalytic activity/Vol] 16 U/L 0 - 49 U/L [facility] Anion gap [Moles/Vol] 9 mmol/L 3 - 13 mmol/L [facility] AST [Catalytic activity/Vol] 27 U/L 15 - 46 U/L [facility] Bilirubin [Mass/Vol] 0.5 mg/dL 0.2 - 1 .3 mg/dL [facility] Calcium [Mass/Vol] 9.2 mg/dL 8.4 - 10. 4 mg/dL [facility] Chloride [Moles/Vol] 100 mmol/L 98 - 10 7 mmol/L [facility] CO2 [Moles/Vol] 20 mmol/L Low 22 - 30 mmol/L [facility] Creatinine [Mass/Vol] 0.72 mg/dL 0.66 - 1.25 mg/dL [facility] GFR/1.73 sq M.predicted MDRD (S/P/Bld) [Vol rate/Area] - PINF [facility] Comment on above: Calculation based on the Chronic Kidney Disease Epidemiology Collaboration (CKD-EPI) equation refit without adjustment for race Glucose [Mass/Vol] 126 mg/dL High 70 - 100 mg/dL [facility] Interpretation and review of laboratory results Abnormal [facility] Potassium [Moles/Vol] 3.7 mmol/L 3.5 - 5.1 mmol/L [facility] Protein [Mass/Vol] 6.9 g/dL 6.3 - 8.2 g/dL [facility] Sodium [Moles/Vol] 129 mmol/L Low 135 - 145 mmol/L [facility] Urea nitrogen [Mass/Vol] 14 mg/dL 9 - 20 mg/dL [facility] IDNon 01-19-2024 IDN Normal [facility] Laboratory - Chemistry and C hemistry - challengeon 01-19-2024 TSH Qn 4.844 m[IU]/L High [facility] Magnesium [Mass/Vol] 1.6 mg/dL 1.6 - 2 .3 mg/dL [facility] MAGNESIUMon 01-19-2024 Magnesium [Mass/Vol] 1.6 mg/dL Normal 1.6-2.3 [facility] Comment on above: Performed By: #### L AB17, [id number], [id number] ####Steam Shovel Engineer: ARA WRIGHT ([id number])[facility] ([address] Magnesium [Mass/Vol]on 01-18 Interpretation and review of laboratory results Normal [facility] Progress Noteon 01-19-2024 Progress Note Normal [facility] Progress Note Normal [facility] Progress Note Normal [facility] Progress Note Normal [facility] THYROID STIMULATING HORMONEo n 01-19-2024 THYROID STIMULATING HORMONE 4.844 uIU/mL High 0.465-4.680 [facility] Comment on above: Performed By: #### L AB17, [id number], [id number] ####Steam Shovel Engineer: ARA WRIGHT ([id number])[facility] ([facility])[address] [place] [address] TSH Qnon 01-19-2024 Interpretation and review of laboratory results Abnormal [facility] CARECOORDon 01-18-2024 CARECOORD Normal [facility] CBC W Auto Differential pane l (Bld)Ordered By: Anna Hensley on 01-18-2024 Basophils (Bld) [#/Vol] 0.0 10*3/uL 0.0 - 0.2 10*3/uL [facility] Basophils/100 WBC (Bld) 0.4 % 0.0 - 2.0 % [facility] Eosinophils (Bld) [#/Vol] 0.1 10*3/uL 0.0 - 0.5 10*3/uL [facility] Eosinophils/100 WBC (Bld) 1.9 % 0.0 - 6.0 % [facility] Erythrocyte distribution width (RBC) [Ratio] 13.5 % 11.5 - 15.0 % [facility] Hematocrit (Bld) [Volume fraction] 34.3 % Low 40.0 - 52.0 % [facility] Hemoglobin (Bld) [Mass/Vol] 12.1 g/dL Low 13.0 - 18.0 g/dL [facility] Immature granulocytes (Bld) [#/Vol] 0.0 10*3/uL NINF - 0.1 10*3/uL [facility] Immature granulocytes/100 WBC (Bld) 0.6 % 0.0 - 2.0 % [facility] Interpretation and review of laboratory results Abnormal [facility] IPF 4 [facility] Lymphocytes (Bld) [#/Vol] 2.0 10*3/uL 1.0 - 4.3 10*3/uL [facility] Lymphocytes/100 WBC (Bld) 37.8 % 15.0 - 45.0 % [facility] MCH (RBC) [Entitic mass] 31.8 pg 26.0 - 34.0 pg [facility] MCHC (RBC) [Mass/Vol] 35.3 % 30.5 - 36.0 % [facility] MCV (RBC) [Entitic vol] 90.0 fL 77.0 - 99.0 fL [facility] Monocytes (Bld) [#/Vol] 0.4 10*3/uL 0.0 - 0.9 10*3/uL [facility] Monocytes/100 WBC (Bld) 7.9 % 5.0 - 13.0 % [facility] Neutrophils (Bld) [#/Vol] 2.7 10*3/uL 1.8 - 7.5 10*3/uL [facility] Neutrophils/100 WBC (Bld) 51.4 % 38.0 - 82.0 % [facility] Nucleated RBC/100 WBC (Bld) [Ratio] 0.0 % [facility] Platelet mean volume (Bld) [Entitic vol] 10.2 fL 9.0 - 12.7 fL [facility] Platelets (Bld) [#/Vol] 62 10*3/uL Low 140 - 440 10*3/uL [facility] RBC (Bld) [#/Vol] 3.81 10*6/uL Low 4.40 - 5.9 0 10*6/uL [facility] WBC (Bld) [#/Vol] 5.3 10*3/uL 3.6 - 10.7 10*3/uL [facility] CBC WITH AUTO DIFFERENTIALon 01-18-2024 Basophils (Bld) [#/Vol] 0.0 10*3/uL Normal 0.0-0.2 [facility] Comment on above: Performed By: #### L [id number] ####Steam Shovel Engineer: ARA [id number])[address] Basophils/100 WBC (Bld) 0.4 % Normal 0.0-2.0 [facility] Comment on above: Performed By: #### L [id number] ####Steam Shovel Engineer: ARA [id number])[address] Eosinophils (Bld) [#/Vol] 0.1 10*3/uL Normal 0.0-0.5 [facility] Comment on above: Performed By: #### L [id number] ####Steam Shovel Engineer: ARA [id number])[facility])[address] [place] [address] Eosinophils/100 WBC (Bld) 1.9 % Normal 0.0-6.0 [facility] Comment on above: Performed By: #### L [id number] ####Steam Shovel Engineer: ARA WRIGHT ([id number])[facility])[address] [place] [address] Erythrocyte distribution width (RBC) [Ratio] 13.5 % Normal 11.5-15.0 [facility] Comment on above: Performed By: #### L [id number] ####Steam Shovel Engineer: ARA WRIGHT ([id number])[address] Hematocrit (Bld) [Volume fraction] 34.3 % Low 40.0-52.0 [facility] Comment on above: Performed By: #### L [id number] ####Steam Shovel Engineer: ARA WRIGHT ([id number])[facility])[address] [place] [address] Hemoglobin (Bld) [Mass/Vol] 12.1 g/dL Low 13.0-18.0 [facility] Comment on above: Performed By: #### L [id number] ####Steam Shovel Engineer: ARA WRIGHT ([id number])[facility])[address] [place] [address] IMMATURE GRANS % 0.6 % Normal 0.0-2.0 [facility] Comment on above: Performed By: #### L [id number] ####Steam Shovel Engineer: ARA WRIGHT ([id number])[facility])[address] [place] [address] IMMATURE GRANS ABSOLUTE 0.0 10*3/uL Normal <0.1 [facility] Comment on above: Performed By: #### L [id number] ####Steam Shovel Engineer: ARA WRIGHT ([id number])[facility])[address] [place] [address] [place] IPF 4 Normal [facility] Comment on above: Performed By: #### L [id number] ####Steam Shovel Engineer: ARA WRIGHT ([id number])[facility])[address] [place] [address] Lymphocytes (Bld) [#/Vol] 2.0 10*3/uL Normal 1.0-4.3 [facility] Comment on above: Performed By: #### L [id number] ####Steam Shovel Engineer: ARA WRIGHT ([id number])[facility])[address] [place] [address] Lymphocytes/100 WBC (Bld) 37.8 % Normal 15.0-45.0 [facility] Comment on above: Performed By: #### L [id number] ####Steam Shovel Engineer: ARA WRIGHT ([id number])[facility])[address] [place] [address] MCH (RBC) [Entitic mass] 31.8 pg Normal 26.0-34.0 [facility] Comment on above: Performed By: #### L [id number] ####Steam Shovel Engineer: ARA WRIGHT ([id number])[facility])[address] [place] [address] MCHC 35.3 % Normal 30.5-36.0 [facility] Comment on above: Performed By: #### L [id number] ####Steam Shovel Engineer: ARA WRIGHT ([id number])[address] MCV (RBC) [Entitic vol] 90.0 fL Normal 77.0-99.0 [facility] Comment on above: Performed By: #### L [id number] ####Steam Shovel Engineer: ARA WRIGHT ([id number])[address] Monocytes (Bld) [#/Vol] 0.4 10*3/uL Normal 0.0-0.9 [facility] Comment on above: Performed By: #### L [id number] ####Steam Shovel Engineer: ARA WRIGHT ([id number])[facility])[address] [place] [address] Monocytes/100 WBC (Bld) 7.9 % Normal 5.0-13.0 [facility] Comment on above: Performed By: #### L [id number] ####Steam Shovel Engineer: ARA WRIGHT ([phone])[facility] ([facility])[address] [place] [address] NEUTROPHILS ABSOLUTE 2.7 10*3/uL Normal 1.8-7.5 [facility] Comment on above: Performed By: #### L [id number] ####Steam Shovel Engineer: ARA WRIGHT ([id number])[facility] ([facility])[address] [place] [address] Neutrophils/100 WBC (Bld) 51.4 % Normal 38.0-82.0 [facility] Comment on above: Performed By: #### L [id number] ####Steam Shovel Engineer: ARA WRIGHT ([phone])[facility] ([facility])[address] [place] [address] NRBC 0.0 /100 WBCs Normal 0.0-2.0 [facility] Comment on above: Performed By: #### L [id number] ####Steam Shovel Engineer: ARA WRIGHT ([phone])[facility] ([facility])[address] [place] [address] Platelet mean volume (Bld) [Entitic vol] 10.2 fL Normal 9.0-12.7 [facility] Comment on above: Performed By: #### L [id number] ####Steam Shovel Engineer: ARA WRIGHT ([id number])[facility] ([facility])[address] [place] [address] [place] Platelets (Bld) [#/Vol] 62 10*3/uL Low 140-440 [facility] Comment on above: Performed By: #### L [id number] ####Steam Shovel Engineer: ARA WRIGHT ([id number])[facility] ([facility])[address] [place] [address] RBC (Bld) [#/Vol] 3.81 10*6/uL Low 4.40-5.90 [facility] Comment on above: Performed By: #### L [id number] ####Steam Shovel Engineer: ARA WRIGHT ([phone])[facility])[address] [place] [address] WBC (Bld) [#/Vol] 5.3 10*3/uL Normal 3.6-10.7 [facility] Comment on above: Performed By: #### L [id number] ####Steam Shovel Engineer: ARA WRIGHT ([phone])[facility] ([facility])[address] [place] [address] COMPREHENSIVE METABOLIC PANE Peter 01-18-2024 Albumin [Mass/Vol] 3.9 g/dL Normal 3.5-5.0 [facility] Comment on above: Performed By: #### L AB17, [id number] ####Steam Shovel Engineer: ARA WRIGHT ([id number])[facility] ([facility])[address] [place] [address] ALP [Catalytic activity/Vol] 59 U/L Normal 38-126 [facility] Comment on above: Performed By: #### L AB17, [id number] ####Steam Shovel Engineer: ARA WRIGHT ([phone])[facility])[address] [place] [address] ALT [Catalytic activity/Vol] 16 U/L Normal 0-49 [facility] Comment on above: Performed By: #### L AB17, [id number] ####Steam Shovel Engineer: ARA WRIGHT ([id number])[facility])[address] [place] [address] Anion gap [Moles/Vol] 9 mmol/L Normal 3-13 [facility] Comment on above: Performed By: #### L AB17, [id number] ####Steam Shovel Engineer: ARA WRIGHT ([phone])[facility])[address] [place] [address] AST [Catalytic activity/Vol] 26 U/L Normal 15-46 [facility] Comment on above: Performed By: #### L AB17, [id number] ####Steam Shovel Engineer: ARA WRIGHT ([phone])[facility])[address] [place] [address] Bilirubin [Mass/Vol] 0.7 mg/dL Normal 0.2-1.3 [facility] Comment on above: Performed By: #### L AB17, [id number] ####Steam Shovel Engineer: ARA WRIGHT ([phone])[facility])[address] [place] [address] Calcium [Mass/Vol] 9.0 mg/dL Normal 8.4-10.4 [facility] Comment on above: Performed By: #### L AB17, [id number] ####Steam Shovel Engineer: ARA WRIGHT ([phone])[facility])[address] [place] [address] Chloride [Moles/Vol] 101 mmol/L Normal 98-107 [facility] Comment on above: Performed By: #### L AB17, [id number] ####Steam Shovel Engineer: ARA WRIGHT ([phone])[facility] ([facility])[address] [place] [address] CO2 [Moles/Vol] 22 mmol/L Normal 22-30 [facility] Comment on above: Performed By: #### L AB17, [id number] ####Steam Shovel Engineer: ARA WRIGHT ([phone])[facility])[address] [place] [address] Creatinine [Mass/Vol] 0.70 mg/dL Normal 0.66-1.25 [facility] Comment on above: Performed By: #### L AB17, [id number] ####Steam Shovel Engineer: ARA WRIGHT ([phone])[facility])[address] [place] [address] GLOMERULAR FILTRATION RATE ML/MIN/1.73 SQ M.PREDICTED >90.0 Normal >60.0 [facility] Comment on above: Result Comment: Calc ulation based on the Chronic Kidney Disease Epidemiology Collaboration (CKD-EPI) equation refit without adjustment for race Performed By: #### L AB17, [id number] ####Steam Shovel Engineer: AAR WRIGHT ([id number])[facility] ([facility])[address] [place] [address] Glucose [Mass/Vol] 123 mg/dL High 70-100 [facility] Comment on above: Performed By: #### L AB17, [id number] ####Steam Shovel Engineer: ARA WRIGHT ([phone])[facility] ([facility])[address] [place] [address] Potassium [Moles/Vol] 3.6 mmol/L Normal 3.5-5.1 [facility] Comment on above: Performed By: #### L AB17, [id number] ####Steam Shovel Engineer: ARA WRIGHT ([phone])[facility] ([facility])[address] [place] [address] Protein [Mass/Vol] 6.9 g/dL Normal 6.3-8.2 [facility] Comment on above: Performed By: #### L AB17, [id number] ####Steam Shovel Engineer: ARA WRIGHT ([id number])[facility] ([facility])[address] [place] [address] Sodium [Moles/Vol] 132 mmol/L Low 135-145 [facility] Comment on above: Performed By: #### L AB17, [id number] ####Steam Shovel Engineer: ARA WRIGHT ([phone])[facility] ([facility])[address] [place] [address] Urea nitrogen [Mass/Vol] 14 mg/dL Normal 9-20 [facility] Comment on above: Performed By: #### L AB17, [id number] ####Steam Shovel Engineer: ARA WRIGHT ([phone])[facility])[address] [place] [address] Comprehensive metabolic 1998 panelon 01-18-2024 Albumin [Mass/Vol] 3.9 g/dL 3.5 - 5.0 g/dL [facility] ALP [Catalytic activity/Vol] 59 U/L 38 - 126 U/L [facility] ALT [Catalytic activity/Vol] 16 U/L 0 - 49 U/L [facility] Anion gap [Moles/Vol] 9 mmol/L 3 - 13 mmol/L [facility] AST [Catalytic activity/Vol] 26 U/L 15 - 46 U/L [facility] Bilirubin [Mass/Vol] 0.7 mg/dL 0.2 - 1 .3 mg/dL [facility] Calcium [Mass/Vol] 9.0 mg/dL 8.4 - 10. 4 mg/dL [facility] Chloride [Moles/Vol] 101 mmol/L 98 - 10 7 mmol/L [facility] CO2 [Moles/Vol] 22 mmol/L 22 - 30 mmol/L [facility] Creatinine [Mass/Vol] 0.70 mg/dL 0.66 - 1.25 mg/dL [facility] GFR/1.73 sq M.predicted MDRD (S/P/Bld) [Vol rate/Area] - PINF [facility] Comment on above: Calculation based on the Chronic Kidney Disease Epidemiology Collaboration (CKD-EPI) equation refit without adjustment for race Glucose [Mass/Vol] 123 mg/dL High 70 - 100 mg/dL [facility] Interpretation and review of laboratory results Abnormal [facility] Potassium [Moles/Vol] 3.6 mmol/L 3.5 - 5.1 mmol/L [facility] Protein [Mass/Vol] 6.9 g/dL 6.3 - 8.2 g/dL [facility] Sodium [Moles/Vol] 132 mmol/L Low 135 - 145 mmol/L [facility] Urea nitrogen [Mass/Vol] 14 mg/dL 9 - 20 mg/dL [facility] Laboratory - Chemistry and C hemistry - challengeon 01-18-2024 Magnesium [Mass/Vol] 1.8 mg/dL 1.6 - 2 .3 mg/dL [facility] MAGNESIUMon 01-18-2024 Magnesium [Mass/Vol] 1.8 mg/dL Normal 1.6-2.3 [facility] Comment on above: Performed By: #### L AB17, [id number] ####Steam Shovel Engineer: ARA WRIGHT ([phone])[facility] ([address] Magnesium [Mass/Vol]on 01-17 Interpretation and review of laboratory results Normal [facility] Progress Noteon 01-18-2024 Progress Note Normal [facility] Progress Note Normal [facility] Progress Note Normal [facility] CBC W Auto Differential pane l (Bld)Ordered By: Denita Chappell on 01-17-2024 Basophils (Bld) [#/Vol] 0.0 10*3/uL 0.0 - 0.2 10*3/uL [facility] Basophils/100 WBC (Bld) 0.5 % 0.0 - 2.0 % [facility] Eosinophils (Bld) [#/Vol] 0.0 10*3/uL 0.0 - 0.5 10*3/uL [facility] Eosinophils/100 WBC (Bld) 1.0 % 0.0 - 6.0 % [facility] Erythrocyte distribution width (RBC) [Ratio] 13.2 % 11.5 - 15.0 % [facility] Hematocrit (Bld) [Volume fraction] 33.3 % Low 40.0 - 52.0 % [facility] Hemoglobin (Bld) [Mass/Vol] 11.8 g/dL Low 13.0 - 18.0 g/dL [facility] Immature granulocytes (Bld) [#/Vol] 0.0 10*3/uL NINF - 0.1 10*3/uL [facility] Immature granulocytes/100 WBC (Bld) 0.2 % 0.0 - 2.0 % [facility] Interpretation and review of laboratory results Abnormal [facility] IPF 3 [facility] Lymphocytes (Bld) [#/Vol] 1.6 10*3/uL 1.0 - 4.3 10*3/uL [facility] Lymphocytes/100 WBC (Bld) 39.1 % 15.0 - 45.0 % [facility] MCH (RBC) [Entitic mass] 32.0 pg 26.0 - 34.0 pg [facility] MCHC (RBC) [Mass/Vol] 35.4 % 30.5 - 36.0 % [facility] MCV (RBC) [Entitic vol] 90.2 fL 77.0 - 99.0 fL [facility] Monocytes (Bld) [#/Vol] 0.3 10*3/uL 0.0 - 0.9 10*3/uL [facility] Monocytes/100 WBC (Bld) 7.5 % 5.0 - 13.0 % [facility] Neutrophils (Bld) [#/Vol] 2.1 10*3/uL 1.8 - 7.5 10*3/uL [facility] Neutrophils/100 WBC (Bld) 51.7 % 38.0 - 82.0 % [facility] Nucleated RBC/100 WBC (Bld) [Ratio] 0.0 % [facility] Platelet mean volume (Bld) [Entitic vol] 9.8 fL 9.0 - 12.7 fL [facility] Platelets (Bld) [#/Vol] 52 10*3/uL Low 140 - 440 10*3/uL [facility] RBC (Bld) [#/Vol] 3.69 10*6/uL Low 4.40 - 5.9 0 10*6/uL [facility] WBC (Bld) [#/Vol] 4.1 10*3/uL 3.6 - 10.7 10*3/uL [facility] CBC WITH AUTO DIFFERENTIALon 01-17-2024 Basophils (Bld) [#/Vol] 0.0 10*3/uL Normal 0.0-0.2 [facility] Comment on above: Performed By: #### L [id number] ####Steam Shovel Engineer: ARA WRIGHT ([id number])[address] Basophils/100 WBC (Bld) 0.5 % Normal 0.0-2.0 [facility] Comment on above: Performed By: #### L [id number] ####Steam Shovel Engineer: ARA WRIGHT ([id number])[facility])[address] [place] [address] Eosinophils (Bld) [#/Vol] 0.0 10*3/uL Normal 0.0-0.5 [facility] Comment on above: Performed By: #### L [id number] ####Steam Shovel Engineer: ARA WRIGHT ([id number])[facility])[address] [place] [address] Eosinophils/100 WBC (Bld) 1.0 % Normal 0.0-6.0 [facility] Comment on above: Performed By: #### L [id number] ####Steam Shovel Engineer: ARA WRIGHT ([id number])[address] Erythrocyte distribution width (RBC) [Ratio] 13.2 % Normal 11.5-15.0 [facility] Comment on above: Performed By: #### L [id number] ####Steam Shovel Engineer: ARA WRIGHT ([id number])[address] Hematocrit (Bld) [Volume fraction] 33.3 % Low 40.0-52.0 [facility] Comment on above: Performed By: #### L [id number] ####Steam Shovel Engineer: ARA WRIGHT ([id number])[address] Hemoglobin (Bld) [Mass/Vol] 11.8 g/dL Low 13.0-18.0 [facility] Comment on above: Performed By: #### L [id number] ####Steam Shovel Engineer: ARA WRIGHT ([phone])[address] IMMATURE GRANS % 0.2 % Normal 0.0-2.0 [facility] Comment on above: Performed By: #### L [id number] ####Steam Shovel Engineer: ARA WRIGHT ([id number])[address] IMMATURE GRANS ABSOLUTE 0.0 10*3/uL Normal <0.1 [facility] Comment on above: Performed By: #### L [id number] ####Steam Shovel Engineer: ARA WRIGHT ([phone])[address] IPF 3 Normal [facility] Comment on above: Performed By: #### L [id number] ####Steam Shovel Engineer: ARA WRIGHT ([id number])[address] Lymphocytes (Bld) [#/Vol] 1.6 10*3/uL Normal 1.0-4.3 [facility] Comment on above: Performed By: #### L [id number] ####Steam Shovel Engineer: ARA WRIGHT ([phone])[facility])[address] [place] [address] Lymphocytes/100 WBC (Bld) 39.1 % Normal 15.0-45.0 [facility] Comment on above: Performed By: #### L [id number] ####Steam Shovel Engineer: ARA WRIGHT ([id number])[facility])[address] [place] [address] MCH (RBC) [Entitic mass] 32.0 pg Normal 26.0-34.0 [facility] Comment on above: Performed By: #### L [id number] ####Steam Shovel Engineer: ARA WRIGHT ([phone])[facility])[address] [place] [address] MCHC 35.4 % Normal 30.5-36.0 [facility] Comment on above: Performed By: #### L [id number] ####Steam Shovel Engineer: ARA WRIGHT ([phone])[facility])[address] [place] [address] MCV (RBC) [Entitic vol] 90.2 fL Normal 77.0-99.0 [facility] Comment on above: Performed By: #### L [id number] ####Steam Shovel Engineer: ARA WRIGHT ([phone])[facility])[address] [place] [address] Monocytes (Bld) [#/Vol] 0.3 10*3/uL Normal 0.0-0.9 [facility] Comment on above: Performed By: #### L [id number] ####Steam Shovel Engineer: ARA WRIGHT ([id number])[facility])[address] [place] [address] Monocytes/100 WBC (Bld) 7.5 % Normal 5.0-13.0 [facility] Comment on above: Performed By: #### L [id number] ####Steam Shovel Engineer: ARA WRIGHT ([id number])[facility] ([facility])[address] [place] [address] NEUTROPHILS ABSOLUTE 2.1 10*3/uL Normal 1.8-7.5 [facility] Comment on above: Performed By: #### L [id number] ####Steam Shovel Engineer: ARA WRIGHT ([id number])[facility])[address] [place] [address] Neutrophils/100 WBC (Bld) 51.7 % Normal 38.0-82.0 [facility] Comment on above: Performed By: #### L [id number] ####Steam Shovel Engineer: ARA WRIGHT ([id number])[facility])[address] [place] [address] NRBC 0.0 /100 WBCs Normal 0.0-2.0 [facility] Comment on above: Performed By: #### L [id number] ####Steam Shovel Engineer: ARA WRIGHT ([id number])[facility] ([facility])[address] [place] [address] Platelet mean volume (Bld) [Entitic vol] 9.8 fL Normal 9.0-12.7 [facility] Comment on above: Performed By: #### L [id number] ####Steam Shovel Engineer: ARA WRIGHT ([id number])[facility] ([facility])[address] [place] [address] [place] Platelets (Bld) [#/Vol] 52 10*3/uL Low 140-440 [facility] Comment on above: Performed By: #### L [id number] ####Steam Shovel Engineer: ARA WRIGHT ([phone])[facility])[address] [place] [address] [place] RBC (Bld) [#/Vol] 3.69 10*6/uL Low 4.40-5.90 [facility] Comment on above: Performed By: #### L [id number] ####Steam Shovel Engineer: ARA WRIGHT ([phone])[facility] ([facility])[address] [place] [address] WBC (Bld) [#/Vol] 4.1 10*3/uL Normal 3.6-10.7 [facility] Comment on above: Performed By: #### L [id number] ####Steam Shovel Engineer: ARA WRIGHT ([id number])[facility] ([facility])[address] [place] [address] COMPREHENSIVE METABOLIC PANE Peter 01-17-2024 Albumin [Mass/Vol] 3.9 g/dL Normal 3.5-5.0 [facility] Comment on above: Performed By: #### L [id number], LAB17 ####Steam Shovel Engineer: ARA WRIGHT ([phone])[facility] ([facility])[address] [place] [address] ALP [Catalytic activity/Vol] 64 U/L Normal 38-126 [facility] Comment on above: Performed By: #### L AB103, LAB17 ####Steam Shovel Engineer: ARA WRIGHT ([phone])[facility] ([facility])[address] [place] [address] ALT [Catalytic activity/Vol] 19 U/L Normal 0-49 [facility] Comment on above: Performed By: #### L AB103, LAB17 ####Steam Shovel Engineer: ARA WRIGHT ([phone])[facility] ([facility])[address] [place] [address] Anion gap [Moles/Vol] 11 mmol/L Normal 3-13 [facility] Comment on above: Performed By: #### L AB103, LAB17 ####Steam Shovel Engineer: ARA WRIGHT ([phone])[facility] ([facility])[address] [place] [address] AST [Catalytic activity/Vol] 33 U/L Normal 15-46 [facility] Comment on above: Performed By: #### L AB103, LAB17 ####Steam Shovel Engineer: ARA WRIGHT ([id number])[facility] ([facility])[address] [place] [address] Bilirubin [Mass/Vol] 0.8 mg/dL Normal 0.2-1.3 [facility] Comment on above: Performed By: #### L AB103, LAB17 ####Steam Shovel Engineer: ARA WRIGHT ([phone])[facility] ([facility])[address] [place] [address] Calcium [Mass/Vol] 8.9 mg/dL Normal 8.4-10.4 [facility] Comment on above: Performed By: #### L AB103, LAB17 ####Steam Shovel Engineer: ARA WRIGHT ([id number])[facility] ([facility])[address] [place] [address] Chloride [Moles/Vol] 100 mmol/L Normal 98-107 [facility] Comment on above: Performed By: #### L 103, LAB17 ####Steam Shovel Engineer: ARA WRIGHT ([id number])[facility] ([facility])[address] [place] [address] CO2 [Moles/Vol] 22 mmol/L Normal 22-30 [facility] Comment on above: Performed By: #### Popeye RODAS, LAB17 ####Steam Shovel Engineer: ARA WRIGHT ([id number])[facility])[address] [place] [address] Creatinine [Mass/Vol] 0.79 mg/dL Normal 0.66-1.25 [facility] Comment on above: Performed By: #### L ADRIANNA, LAB17 ####Steam Shovel Engineer: ARA WRIGHT ([phone])[facility])[address] [place] [address] GLOMERULAR FILTRATION RATE ML/MIN/1.73 SQ M.PREDICTED >90.0 Normal >60.0 [facility] Comment on above: Result Comment: Calc ulation based on the Chronic Kidney Disease Epidemiology Collaboration (CKD-EPI) equation refit without adjustment for race Performed By: #### L AB103, LAB17 ####Steam Shovel Engineer: ARA WRIGHT ([phone])[facility] ([facility])[address] [place] [address] [place] Glucose [Mass/Vol] 111 mg/dL High 70-100 [facility] Comment on above: Performed By: #### L AB103, LAB17 ####Steam Shovel Engineer: ARA WRIGHT ([phone])[facility] ([facility])[address] [place] [address] Potassium [Moles/Vol] 3.4 mmol/L Low 3.5-5.1 [facility] Comment on above: Performed By: #### L AB103, LAB17 ####Steam Shovel Engineer: ARA WRIGHT ([phone])[facility] ([facility])[address] [place] [address] Protein [Mass/Vol] 6.8 g/dL Normal 6.3-8.2 [facility] Comment on above: Performed By: #### L 103, LAB17 ####Steam Shovel Engineer: ARA WRIGHT ([id number])[facility] ([facility])[address] [place] [address] Sodium [Moles/Vol] 134 mmol/L Low 135-145 [facility] Comment on above: Performed By: #### L ADRIANNA, LAB17 ####Steam Shovel Engineer: ARA WRIGHT ([phone])[facility] ([facility])[address] [place] [address] Urea nitrogen [Mass/Vol] 12 mg/dL Normal 9-20 [facility] Comment on above: Performed By: #### L ADRIANNA, LAB17 ####Steam Shovel Engineer: ARA WRIGHT ([id number])[facility] ([facility])[address] [place] [address] Comprehensive metabolic 1998 panelon 01-17-2024 Albumin [Mass/Vol] 3.9 g/dL 3.5 - 5.0 g/dL [facility] ALP [Catalytic activity/Vol] 64 U/L 38 - 126 U/L [facility] ALT [Catalytic activity/Vol] 19 U/L 0 - 49 U/L [facility] Anion gap [Moles/Vol] 11 mmol/L 3 - 13 mmol/L [facility] AST [Catalytic activity/Vol] 33 U/L 15 - 46 U/L [facility] Bilirubin [Mass/Vol] 0.8 mg/dL 0.2 - 1 .3 mg/dL [facility] Calcium [Mass/Vol] 8.9 mg/dL 8.4 - 10. 4 mg/dL [facility] Chloride [Moles/Vol] 100 mmol/L 98 - 10 7 mmol/L [facility] CO2 [Moles/Vol] 22 mmol/L 22 - 30 mmol/L [facility] Creatinine [Mass/Vol] 0.79 mg/dL 0.66 - 1.25 mg/dL [facility] GFR/1.73 sq M.predicted MDRD (S/P/Bld) [Vol rate/Area] - PINF [facility] Comment on above: Calculation based on the Chronic Kidney Disease Epidemiology Collaboration (CKD-EPI) equation refit without adjustment for race Glucose [Mass/Vol] 111 mg/dL High 70 - 100 mg/dL [facility] Interpretation and review of laboratory results Abnormal [facility] Potassium [Moles/Vol] 3.4 mmol/L Low 3.5 - 5.1 mmol/L [facility] Protein [Mass/Vol] 6.8 g/dL 6.3 - 8.2 g/dL [facility] Sodium [Moles/Vol] 134 mmol/L Low 135 - 145 mmol/L [facility] Urea nitrogen [Mass/Vol] 12 mg/dL 9 - 20 mg/dL [facility] IDNon 01-17-2024 IDN Normal [facility] Laboratory - Chemistry and C hemistry - challengeon 01-17-2024 Magnesium [Mass/Vol] 1.3 mg/dL Low 1.6 - 2 .3 mg/dL [facility] MAGNESIUMon 01-17-2024 Magnesium [Mass/Vol] 1.3 mg/dL Low 1.6-2.3 [facility] Comment on above: Performed By: #### L [id number], [id number] ####Steam Shovel Engineer: ARA WRIGHT ([id number])[address] Magnesium [Mass/Vol]on 01-16 Interpretation and review of laboratory results Abnormal [facility] Progress Noteon 01-17-2024 Progress Note Normal [facility] Progress Note Normal [facility] CBC W Auto Differential pane l (Bld)Ordered By: Rommel Card on 01-16-2024 Basophils (Bld) [#/Vol] 0.0 10*3/uL 0.0 - 0.2 10*3/uL [facility] Basophils/100 WBC (Bld) 0.3 % 0.0 - 2.0 % [facility] Eosinophils (Bld) [#/Vol] 0.0 10*3/uL 0.0 - 0.5 10*3/uL [facility] Eosinophils/100 WBC (Bld) 0.3 % 0.0 - 6.0 % [facility] Erythrocyte distribution width (RBC) [Ratio] 13.6 % 11.5 - 15.0 % [facility] Hematocrit (Bld) [Volume fraction] 33.2 % Low 40.0 - 52.0 % [facility] Hemoglobin (Bld) [Mass/Vol] 11.5 g/dL Low 13.0 - 18.0 g/dL [facility] Immature granulocytes (Bld) [#/Vol] 0.0 10*3/uL NINF - 0.1 10*3/uL [facility] Immature granulocytes/100 WBC (Bld) 0.3 % 0.0 - 2.0 % [facility] Interpretation and review of laboratory results Abnormal [facility] IPF 3 [facility] Lymphocytes (Bld) [#/Vol] 1.3 10*3/uL 1.0 - 4.3 10*3/uL [facility] Lymphocytes/100 WBC (Bld) 33.3 % 15.0 - 45.0 % [facility] MCH (RBC) [Entitic mass] 31.4 pg 26.0 - 34.0 pg [facility] MCHC (RBC) [Mass/Vol] 34.6 % 30.5 - 36.0 % [facility] MCV (RBC) [Entitic vol] 90.7 fL 77.0 - 99.0 fL [facility] Monocytes (Bld) [#/Vol] 0.3 10*3/uL 0.0 - 0.9 10*3/uL [facility] Monocytes/100 WBC (Bld) 7.0 % 5.0 - 13.0 % [facility] Neutrophils (Bld) [#/Vol] 2.3 10*3/uL 1.8 - 7.5 10*3/uL [facility] Neutrophils/100 WBC (Bld) 58.8 % 38.0 - 82.0 % [facility] Nucleated RBC/100 WBC (Bld) [Ratio] 0.0 % [facility] Platelet mean volume (Bld) [Entitic vol] 9.9 fL 9.0 - 12.7 fL [facility] Platelets (Bld) [#/Vol] 50 10*3/uL Low 140 - 440 10*3/uL [facility] RBC (Bld) [#/Vol] 3.66 10*6/uL Low 4.40 - 5.9 0 10*6/uL [facility] WBC (Bld) [#/Vol] 3.8 10*3/uL 3.6 - 10.7 10*3/uL [facility] CBC WITH AUTO DIFFERENTIALon 01-16-2024 Basophils (Bld) [#/Vol] 0.0 10*3/uL Normal 0.0-0.2 [facility] Comment on above: Performed By: #### L [id number] ####Steam Shovel Engineer: ARA WRIGHT ([phone])[facility])[address] [place] [address] Basophils/100 WBC (Bld) 0.3 % Normal 0.0-2.0 [facility] Comment on above: Performed By: #### L [id number] ####Steam Shovel Engineer: ARA WRIGHT ([id number])[facility])[address] [place] [address] [place] Eosinophils (Bld) [#/Vol] 0.0 10*3/uL Normal 0.0-0.5 [facility] Comment on above: Performed By: #### L [id number] ####Steam Shovel Engineer: ARA WRIGHT ([id number])[facility])[address] [place] [address] [place] Eosinophils/100 WBC (Bld) 0.3 % Normal 0.0-6.0 [facility] Comment on above: Performed By: #### L [id number] ####Steam Shovel Engineer: ARA WRIGHT ([id number])[facility])[address] [place] [address] Erythrocyte distribution width (RBC) [Ratio] 13.6 % Normal 11.5-15.0 [facility] Comment on above: Performed By: #### L [id number] ####Steam Shovel Engineer: ARA WRIGHT ([id number])[facility])[address] [place] [address] Hematocrit (Bld) [Volume fraction] 33.2 % Low 40.0-52.0 [facility] Comment on above: Performed By: #### L [id number] ####Steam Shovel Engineer: ARA WRIGHT ([id number])[facility])[address] [place] [address] Hemoglobin (Bld) [Mass/Vol] 11.5 g/dL Low 13.0-18.0 [facility] Comment on above: Performed By: #### L [id number] ####Steam Shovel Engineer: ARA WRIGHT ([id number])[facility])[address] [place] [address] IMMATURE GRANS % 0.3 % Normal 0.0-2.0 [facility] Comment on above: Performed By: #### L [id number] ####Steam Shovel Engineer: ARA WRIGHT ([id number])[address] IMMATURE GRANS ABSOLUTE 0.0 10*3/uL Normal <0.1 [facility] Comment on above: Performed By: #### L [id number] ####Steam Shovel Engineer: ARA WRIGHT ([id number])[address] IPF 3 Normal [facility] Comment on above: Performed By: #### L [id number] ####Steam Shovel Engineer: ARA WRIGHT ([id number])[facility])[address] [place] [address] Lymphocytes (Bld) [#/Vol] 1.3 10*3/uL Normal 1.0-4.3 [facility] Comment on above: Performed By: #### L [id number] ####Steam Shovel Engineer: ARA WRIGHT ([id number])[facility])[address] [place] [address] Lymphocytes/100 WBC (Bld) 33.3 % Normal 15.0-45.0 [facility] Comment on above: Performed By: #### L [id number] ####Steam Shovel Engineer: ARA WRIGHT ([id number])[facility])[address] [place] [address] MCH (RBC) [Entitic mass] 31.4 pg Normal 26.0-34.0 [facility] Comment on above: Performed By: #### L [id number] ####Steam Shovel Engineer: ARA WRIGHT ([id number])[facility])[address] [place] [address] MCHC 34.6 % Normal 30.5-36.0 [facility] Comment on above: Performed By: #### L [id number] ####Steam Shovel Engineer: ARA WRIGHT ([id number])[facility])[address] [place] [address] MCV (RBC) [Entitic vol] 90.7 fL Normal 77.0-99.0 [facility] Comment on above: Performed By: #### L [id number] ####Steam Shovel Engineer: ARA WRIGHT ([id number])[facility])[address] [place] [address] Monocytes (Bld) [#/Vol] 0.3 10*3/uL Normal 0.0-0.9 [facility] Comment on above: Performed By: #### L [id number] ####Steam Shovel Engineer: ARA WRIGHT ([phone])[facility])[address] [place] [address] Monocytes/100 WBC (Bld) 7.0 % Normal 5.0-13.0 [facility] Comment on above: Performed By: #### L [id number] ####Steam Shovel Engineer: ARA WRIGHT ([id number])[facility])[address] [place] [address] NEUTROPHILS ABSOLUTE 2.3 10*3/uL Normal 1.8-7.5 [facility] Comment on above: Performed By: #### L [id number] ####Steam Shovel Engineer: ARA WRIGHT ([id number])[facility])[address] [place] [address] Neutrophils/100 WBC (Bld) 58.8 % Normal 38.0-82.0 [facility] Comment on above: Performed By: #### L [id number] ####Steam Shovel Engineer: ARA WRIGHT ([id number])[facility] ([facility])[address] [place] [address] NRBC 0.0 /100 WBCs Normal 0.0-2.0 [facility] Comment on above: Performed By: #### L [id number] ####Steam Shovel Engineer: ARA WRIGHT ([id number])[facility] ([facility])[address] [place] [address] Platelet mean volume (Bld) [Entitic vol] 9.9 fL Normal 9.0-12.7 [facility] Comment on above: Performed By: #### L [id number] ####Steam Shovel Engineer: ARA WRIGHT ([phone])[facility] ([facility])[address] [place] [address] Platelets (Bld) [#/Vol] 50 10*3/uL Low 140-440 [facility] Comment on above: Performed By: #### L [id number] ####Steam Shovel Engineer: ARA WRIGHT ([id number])[facility] ([facility])[address] [place] [address] [place] RBC (Bld) [#/Vol] 3.66 10*6/uL Low 4.40-5.90 [facility] Comment on above: Performed By: #### L [id number] ####Steam Shovel Engineer: ARA WRIGHT ([id number])[facility] ([facility])[address] [place] [address] [place] WBC (Bld) [#/Vol] 3.8 10*3/uL Normal 3.6-10.7 [facility] Comment on above: Performed By: #### L [id number] ####Steam Shovel Engineer: ARA WRIGHT ([id number])[facility])[address] [place] [address] COMPREHENSIVE METABOLIC PANE Peter 01-16-2024 Albumin [Mass/Vol] 4.3 g/dL Normal 3.5-5.0 [facility] Comment on above: Performed By: #### L [id number], [id number] ####Steam Shovel Engineer: ARA WRIGHT ([id number])[facility] ([facility])[address] [place] [address] ALP [Catalytic activity/Vol] 74 U/L Normal 38-126 [facility] Comment on above: Performed By: #### L [id number], LAB17 ####Steam Shovel Engineer: ARA WRIGHT ([id number])[facility])[address] [place] [address] ALT [Catalytic activity/Vol] 23 U/L Normal 0-49 [facility] Comment on above: Performed By: #### L [id number], LAB17 ####Steam Shovel Engineer: ARA WRIGHT ([id number])[facility] ([facility])[address] [place] [address] Anion gap [Moles/Vol] 14 mmol/L High 3-13 [facility] Comment on above: Performed By: #### L [id number], LAB17 ####Steam Shovel Engineer: ARA WRIGHT ([id number])[facility])[address] [place] [address] AST [Catalytic activity/Vol] 47 U/L High 15-46 [facility] Comment on above: Performed By: #### L [id number], LAB17 ####Steam Shovel Engineer: ARA WRIGHT ([id number])[facility])[address] [place] [address] Bilirubin [Mass/Vol] 1.6 mg/dL High 0.2-1.3 [facility] Comment on above: Performed By: #### L [id number], LAB17 ####Steam Shovel Engineer: ARA WRIGHT ([id number])[facility])[address] [place] [address] Calcium [Mass/Vol] 8.6 mg/dL Normal 8.4-10.4 [facility] Comment on above: Performed By: #### Popeye RODAS, LAB17 ####Steam Shovel Engineer: ARA WRIGHT ([id number])[facility])[address] [place] [address] [place] Chloride [Moles/Vol] 106 mmol/L Normal 98-107 [facility] Comment on above: Performed By: #### Popeye RODAS, LAB17 ####Steam Shovel Engineer: ARA WRIGHT ([id number])[facility] ([facility])[address] [place] [address] CO2 [Moles/Vol] 18 mmol/L Low 22-30 [facility] Comment on above: Performed By: #### Popeye RODAS, LAB17 ####Steam Shovel Engineer: ARA WRIGHT ([id number])[facility] ([facility])[address] [place] [address] Creatinine [Mass/Vol] 0.71 mg/dL Normal 0.66-1.25 [facility] Comment on above: Performed By: #### Popeye RODAS, LAB17 ####Steam Shovel Engineer: ARA WRIGHT ([id number])[facility])[address] [place] [address] GLOMERULAR FILTRATION RATE ML/MIN/1.73 SQ M.PREDICTED >90.0 Normal >60.0 [facility] Comment on above: Result Comment: Calc ulation based on the Chronic Kidney Disease Epidemiology Collaboration (CKD-EPI) equation refit without adjustment for race Performed By: #### Popeye RODAS, LAB17 ####Steam Shovel Engineer: ARA WIRGHT ([id number])[facility] ([facility])[address] [place] [address] [place] Glucose [Mass/Vol] 84 mg/dL Normal 70-100 [facility] Comment on above: Performed By: #### Popeye RODAS, LAB17 ####Steam Shovel Engineer: ARA WRIGHT ([id number])[facility])[address] [place] [address] Potassium [Moles/Vol] 3.2 mmol/L Low 3.5-5.1 [facility] Comment on above: Performed By: #### L [id number], LAB17 ####Steam Shovel Engineer: ARA WRIGHT ([id number])[facility] ([facility])[address] [place] [address] Protein [Mass/Vol] 7.4 g/dL Normal 6.3-8.2 [facility] Comment on above: Performed By: #### L [id number], LAB17 ####Steam Shovel Engineer: ARA WRIGHT ([id number])[facility] ([facility])[address] [place] [address] Sodium [Moles/Vol] 138 mmol/L Normal 135-145 [facility] Comment on above: Performed By: #### Popeye RODAS, LAB17 ####Steam Shovel Engineer: ARA WRIGHT ([id number])[facility] ([facility])[address] [place] [address] Urea nitrogen [Mass/Vol] 11 mg/dL Normal 9-20 [facility] Comment on above: Performed By: #### L AB103, LAB17 ####Steam Shovel Engineer: ARA WRIGHT ([id number])[facility] ([facility])[address] [place] [address] Comprehensive metabolic 1998 panelon 01-16-2024 Albumin [Mass/Vol] 4.3 g/dL 3.5 - 5.0 g/dL [facility] ALP [Catalytic activity/Vol] 74 U/L 38 - 126 U/L [facility] ALT [Catalytic activity/Vol] 23 U/L 0 - 49 U/L [facility] Anion gap [Moles/Vol] 14 mmol/L High 3 - 13 mmol/L [facility] AST [Catalytic activity/Vol] 47 U/L High 15 - 46 U/L [facility] Bilirubin [Mass/Vol] 1.6 mg/dL High 0.2 - 1 .3 mg/dL [facility] Calcium [Mass/Vol] 8.6 mg/dL 8.4 - 10. 4 mg/dL [facility] Chloride [Moles/Vol] 106 mmol/L 98 - 10 7 mmol/L [facility] CO2 [Moles/Vol] 18 mmol/L Low 22 - 30 mmol/L [facility] Creatinine [Mass/Vol] 0.71 mg/dL 0.66 - 1.25 mg/dL [facility] GFR/1.73 sq M.predicted MDRD (S/P/Bld) [Vol rate/Area] - PINF [facility] Comment on above: Calculation based on the Chronic Kidney Disease Epidemiology Collaboration (CKD-EPI) equation refit without adjustment for race Glucose [Mass/Vol] 84 mg/dL 70 - 100 mg/dL [facility] Interpretation and review of laboratory results Abnormal [facility] Potassium [Moles/Vol] 3.2 mmol/L Low 3.5 - 5.1 mmol/L [facility] Protein [Mass/Vol] 7.4 g/dL 6.3 - 8.2 g/dL [facility] Sodium [Moles/Vol] 138 mmol/L 135 - 145 mmol/L [facility] Urea nitrogen [Mass/Vol] 11 mg/dL 9 - 20 mg/dL [facility] Consulton 01-16-2024 Consult Normal [facility] IDNon 01-16-2024 IDN Normal [facility] Laboratory - Chemistry and C hemistry - challengeon 01-16-2024 Magnesium [Mass/Vol] 1.4 mg/dL Low 1.6 - 2 .3 mg/dL [facility] MAGNESIUMon 01-16-2024 Magnesium [Mass/Vol] 1.4 mg/dL Low 1.6-2.3 [facility] Comment on above: Performed By: #### L AB103, LAB17 ####Steam Shovel Engineer: ARA WRIGHT ([phone])[facility] ([address] Magnesium [Mass/Vol]on 01-15 Interpretation and review of laboratory results Abnormal [facility] Progress Noteon 01-16-2024 Progress Note Normal [facility] Progress Note Normal [facility] Progress Note Normal [facility] CBC W Auto Differential pane l (Bld)Ordered By: Warner Francisco on 01-15-2024 Basophils (Bld) [#/Vol] 0.0 10*3/uL 0.0 - 0.2 10*3/uL [facility] Basophils/100 WBC (Bld) 0.5 % 0.0 - 2.0 % [facility] Eosinophils (Bld) [#/Vol] 0.0 10*3/uL 0.0 - 0.5 10*3/uL [facility] Eosinophils/100 WBC (Bld) 0.4 % 0.0 - 6.0 % [facility] Erythrocyte distribution width (RBC) [Ratio] 13.6 % 11.5 - 15.0 % [facility] Hematocrit (Bld) [Volume fraction] 34.5 % Low 40.0 - 52.0 % [facility] Hemoglobin (Bld) [Mass/Vol] 12.7 g/dL Low 13.0 - 18.0 g/dL [facility] Immature granulocytes (Bld) [#/Vol] 0.0 10*3/uL NINF - 0.1 10*3/uL [facility] Immature granulocytes/100 WBC (Bld) 0.3 % 0.0 - 2.0 % [facility] Interpretation and review of laboratory results Abnormal [facility] Lymphocytes (Bld) [#/Vol] 1.5 10*3/uL 1.0 - 4.3 10*3/uL [facility] Lymphocytes/100 WBC (Bld) 19.8 % 15.0 - 45.0 % [facility] MCH (RBC) [Entitic mass] 33.2 pg 26.0 - 34.0 pg [facility] MCHC (RBC) [Mass/Vol] 36.8 % High 30.5 - 36.0 % [facility] MCV (RBC) [Entitic vol] 90.1 fL 77.0 - 99.0 fL [facility] Monocytes (Bld) [#/Vol] 0.2 10*3/uL 0.0 - 0.9 10*3/uL [facility] Monocytes/100 WBC (Bld) 2.4 % Low 5.0 - 13.0 % [facility] Neutrophils (Bld) [#/Vol] 5.7 10*3/uL 1.8 - 7.5 10*3/uL [facility] Neutrophils/100 WBC (Bld) 76.6 % 38.0 - 82.0 % [facility] Nucleated RBC/100 WBC (Bld) [Ratio] 0.0 % [facility] Platelet mean volume (Bld) [Entitic vol] 9.4 fL 9.0 - 12.7 fL [facility] Platelets (Bld) [#/Vol] 73 10*3/uL Low 140 - 440 10*3/uL [facility] RBC (Bld) [#/Vol] 3.83 10*6/uL Low 4.40 - 5.9 0 10*6/uL [facility] WBC (Bld) [#/Vol] 7.4 10*3/uL 3.6 - 10.7 10*3/uL [facility] CBC WITH AUTO DIFFERENTIALon 01-15-2024 Basophils (Bld) [#/Vol] 0.0 10*3/uL Normal 0.0-0.2 [facility] Comment on above: Performed By: #### L [id number] ####Steam Shovel Engineer: ARA RWIGHT ([phone])[facility] [place] [facility] ([facility])[address] [place] [address] [place] Basophils/100 WBC (Bld) 0.5 % Normal 0.0-2.0 [facility] Comment on above: Performed By: #### L [id number] ####Steam Shovel Engineer: ARA WRIGHT ([id number])[facility] [facility] ([facility])[address] [place] [address] [place] Eosinophils (Bld) [#/Vol] 0.0 10*3/uL Normal 0.0-0.5 [facility] Comment on above: Performed By: #### L [id number] ####Steam Shovel Engineer: ARA WRIGHT ([id number])[facility] [place] [facility] ([facility])[address] [place] [address] [place] Eosinophils/100 WBC (Bld) 0.4 % Normal 0.0-6.0 [facility] Comment on above: Performed By: #### L [id number] ####Steam Shovel Engineer: ARA WRIGHT ([id number])[facility] [place] [facility] ([facility])[address] [place] [address] Erythrocyte distribution width (RBC) [Ratio] 13.6 % Normal 11.5-15.0 [facility] Comment on above: Performed By: #### L [id number] ####Steam Shovel Engineer: ARA WRIGHT ([id number])[facility] ([facility])[address] Hematocrit (Bld) [Volume fraction] 34.5 % Low 40.0-52.0 [facility] Comment on above: Performed By: #### L [id number] ####Steam Shovel Engineer: ARA WRIGHT ([id number])[facility]ITALOctavia [facility] ([facility])[address] [place] [address] Hemoglobin (Bld) [Mass/Vol] 12.7 g/dL Low 13.0-18.0 [facility] Comment on above: Performed By: #### L [id number] ####Steam Shovel Engineer: ARA WRIGHT ([id number])[facility] ([facility])[address] [place] [address] IMMATURE GRANS % 0.3 % Normal 0.0-2.0 [facility] Comment on above: Performed By: #### L [id number] ####Steam Shovel Engineer: ARA WRIGHT ([id number])[facility] ([facility])[address] [place] [address] IMMATURE GRANS ABSOLUTE 0.0 10*3/uL Normal <0.1 [facility] Comment on above: Performed By: #### L [id number] ####Steam Shovel Engineer: ARA WRIGHT ([id number])[facility]ITALOctavia [facility] ([facility])[address] [place] [address] [place] Lymphocytes (Bld) [#/Vol] 1.5 10*3/uL Normal 1.0-4.3 [facility] Comment on above: Performed By: #### L [id number] ####Steam Shovel Engineer: ARA WRIGHT ([id number])[facility] ([facility])[address] [place] [address] [place] Lymphocytes/100 WBC (Bld) 19.8 % Normal 15.0-45.0 [facility] Comment on above: Performed By: #### L [id number] ####Steam Shovel Engineer: ARA WRIGHT ([id number])[facility]ITALOctavia [facility] ([facility])[address] [place] [address] MCH (RBC) [Entitic mass] 33.2 pg Normal 26.0-34.0 [facility] Comment on above: Performed By: #### L [id number] ####Steam Shovel Engineer: ARA WRIGHT ([phone])[facility]ITALOctavia [facility] ([facility])[address] [place] [address] MCHC 36.8 % High 30.5-36.0 [facility] Comment on above: Performed By: #### L [id number] ####Steam Shovel Engineer: ARA WRIGHT ([id number])[facility]ITALOctavia [facility] ([facility])[address] [place] [address] MCV (RBC) [Entitic vol] 90.1 fL Normal 77.0-99.0 [facility] Comment on above: Performed By: #### L [id number] ####Steam Shovel Engineer: ARA WRIGHT ([id number])[facility]ITALOctavia [facility] ([facility])[address] [place] [address] [place] Monocytes (Bld) [#/Vol] 0.2 10*3/uL Normal 0.0-0.9 [facility] Comment on above: Performed By: #### L [id number] ####Steam Shovel Engineer: ARA WRIGHT ([phone])[facility]ITALOctavia [facility] ([facility])[address] [place] [address] [place] Monocytes/100 WBC (Bld) 2.4 % Low 5.0-13.0 [facility] Comment on above: Performed By: #### L [id number] ####Steam Shovel Engineer: ARA WRIGHT ([id number])[facility] ([facility])[address] [place] [address] [place] NEUTROPHILS ABSOLUTE 5.7 10*3/uL Normal 1.8-7.5 [facility] Comment on above: Performed By: #### L [id number] ####Steam Shovel Engineer: ARA WRIGHT ([id number])[facility]ITALOctavia [facility] ([facility])[address] [place] [address] [place] Neutrophils/100 WBC (Bld) 76.6 % Normal 38.0-82.0 [facility] Comment on above: Performed By: #### L [id number] ####Steam Shovel Engineer: ARA WRIGHT ([id number])[facility]ITALOctavia [facility] ([facility])[address] [place] [address] NRBC 0.0 /100 WBCs Normal 0.0-2.0 [facility] Comment on above: Performed By: #### L [id number] ####Steam Shovel Engineer: ARA WRIGHT ([id number])[facility]ITALOctavia [facility] ([facility])[address] [place] [address] Platelet mean volume (Bld) [Entitic vol] 9.4 fL Normal 9.0-12.7 [facility] Comment on above: Performed By: #### L [id number] ####Steam Shovel Engineer: ARA WRIGHT ([id number])[facility]ITALOctavia [facility] ([facility])[address] [place] [address] [place] Platelets (Bld) [#/Vol] 73 10*3/uL Low 140-440 [facility] Comment on above: Performed By: #### L [id number] ####Steam Shovel Engineer: ARA WRIGHT ([id number])[facility]ITALOctavia [facility] ([facility])[address] [place] [address] [place] RBC (Bld) [#/Vol] 3.83 10*6/uL Low 4.40-5.90 [facility] Comment on above: Performed By: #### L [id number] ####Steam Shovel Engineer: ARA WRIGHT ([phone])[facility]OSPITALOctavia DUNCAN RITTMAN (SWRLAB)[address] [place] [address] WBC (Bld) [#/Vol] 7.4 10*3/uL Normal 3.6-10.7 [facility] Comment on above: Performed By: #### L [id number] ####Steam Shovel Engineer: RAA WRIGHT ([id number])[facility]OS[facility]ITALOctavia DUNCAN RITTMAN (SWRLAB)[address] [place] [address] COMPLETE URINALYSISon 2023 AMORPHOUS URATES (#/HPF) IN URINE Few Abnormal Negative [facility] Comment on above: Performed By: #### L [id number] ####Steam Shovel Engineer: ARA WRIGHT ([phone])[facility]OSPITALOctavia DUNCAN RITTMAN (SWRLAB)[address] [place] [address] [place] BACTERIA (#/HPF) IN URINE Few Abnormal Negative [facility] Comment on above: Performed By: #### L [id number] ####Steam Shovel Engineer: ARA WRIGHT ([phone])[facility]ITALOctavia DUNCAN RITTMAN (SWRLAB)[address] [place] [address] BILIRUBIN, TOTAL PRESENCE IN URINE Negative Normal Negative [facility] Comment on above: Performed By: #### L [id number] ####Steam Shovel Engineer: ARA WRIGHT ([phone])[facility]OS[facility]ITALOctavia DUNCAN RITTMAN (SWRLAB)[address] [place] [address] Clarity (U) Clear Normal Clear [facility] Comment on above: Performed By: #### L [id number] ####Steam Shovel Engineer: ARA WRIGHT ([phone])[facility] HOSPITALOctvaia DUNCAN RITTMAN (SWRLAB)[address] [place] [address] Color (U) Light Yellow Normal Lt. Yellow [facility] Comment on above: Performed By: #### L [id number] ####Steam Shovel Engineer: ARA WRIGHT ([id number])[facility]OSPITALOctavia DUNCAN [place] ([place])[address] [place] [address] [place] GLUCOSE (MG/DL) IN URINE Normal Normal Normal (<70) [facility] Comment on above: Performed By: #### L [id number] ####Steam Shovel Engineer: ARA WRIGHT ([id number])[facility]OSPITALOctavia DUNCAN [place] ([place])[address] [place] [address] [place] HEMOGLOBIN PRESENCE IN URINE Negative Normal Negative [facility] Comment on above: Performed By: #### L [id number] ####Steam Shovel Engineer: ARA WRIGHT ([id number])[facility]OSPITALOctavia [place] ([place])[address] Ketones Ql (U) Trace Abnormal Negative [facility] Comment on above: Performed By: #### L [id number] ####Steam Shovel Engineer: ARA WRIGHT ([id number])[facility]OSPITALOctavia [place] ([place])[address] LEUKOCYTE ESTERASE PRESENCE IN URINE BY TEST STRIP Negative Normal Negative [facility] Comment on above: Performed By: #### L [id number] ####Steam Shovel Engineer: ARA WRIGHT ([id number])[facility]OSPITALOctavia [place] [place] ([place])[address] [place] [address] NITRITE PRESENCE IN URINE Negative Normal Negative [facility] Comment on above: Performed By: #### L [id number] ####Steam Shovel Engineer: ARA WRIGHT ([id number])[facility]OS[facility]ITALOctavia [place]AN [place] ([place])[address] pH (U) 5.5 [pH] Normal 5.0-8.0 [facility] Comment on above: Performed By: #### L [id number] ####Steam Shovel Engineer: RAA WRIGHT ([id number])[facility] HOSPITALOctavia L[place]ADAK[place] ([place])[address] [place] [address] [place] Protein (U) [Mass/Vol] 20 mg/dL Abnormal Negative [facility] Comment on above: Performed By: #### L [id number] ####Steam Shovel Engineer: ARA WRIGHT ([id number])[facility]OS[facility]ITALOctavia [place] [place] ([place])[address] [place] [address] [place] RBC (#/HPF) IN URINE SEDIMENT Negative Normal 0-2 [facility] Comment on above: Performed By: #### L [id number] ####Steam Shovel Engineer: ARA WRIGHT ([id number])[facility]OS[facility]ITALOctavia D[place]AN [place] ([place])[address] [place] [address] Specific gravity (U) [Rel density] 1.014 Normal 1.005-1.030 [facility] Comment on above: Performed By: #### L [id number] ####Steam Shovel Engineer: ARA WRIGHT ([id number])[facility]OS[facility]ITALOctavia [place] [place] ([place])[address] [place] [address] Specimen volume (U) 12 mL Normal [facility] Comment on above: Performed By: #### L [id number] ####Steam Shovel Engineer: ARA WRIGHT ([id number])[facility]OSPITALOctavia [place] ([place])[address] [place] [address] [place] SQUAMOUS EPITHELIAL CELLS (#/HPF) IN URINE SEDIMENT Negative Normal 3-5 [facility] Comment on above: Performed By: #### L [id number] ####Steam Shovel Engineer: ARA WRIGHT ([id number])[facility]ITALOctavia [place] [place] ([place])[address] [place] [address] [place] UROBILINOGEN (MG/DL) IN URINE Normal Normal Normal (0-1) [facility] Comment on above: Performed By: #### L [id number] ####Steam Shovel Engineer: ARA WRIGHT ([id number])[facility]OS[facility]ITALOctavia [place]AN [place] ([place])[address] [place] [address] [place] WBC (LEUKOCYTE) (#/HPF) IN URINE SEDIMENT Negative Normal 0-5 [facility] Comment on above: Performed By: #### L [id number] ####Steam Shovel Engineer: ARA WRIGHT ([id number])[facility] HOSPITALOctavia D[place]AN [place] ([place])[address] COMPREHENSIVE METABOLIC PANE Peter 01-15-2024 Albumin [Mass/Vol] 4.7 g/dL Normal 3.5-5.0 [facility] Comment on above: Performed By: #### L AB99, LAB17 ####Steam Shovel Engineer: ARA WRIGHT ([id number])[facility]OSPITALOctavia [place] ([place])[address] ALP [Catalytic activity/Vol] 86 U/L Normal 38-126 [facility] Comment on above: Performed By: #### L 99, LAB17 ####Steam Shovel Engineer: ARA WRIGHT ([id number])[facility]OSPITALOctavia [place] ([place])[address] [place] [address] [place] ALT [Catalytic activity/Vol] 29 U/L Normal 0-49 [facility] Comment on above: Performed By: #### Popeye DERAS99, LAB17 ####Steam Shovel Engineer: ARA WRIGHT ([id number])[facility]OS[facility]ITALOctavia [place] ([place])[address] Anion gap [Moles/Vol] 14 mmol/L High 3-13 [facility] Comment on above: Performed By: #### L 99, LAB17 ####Steam Shovel Engineer: ARA WRIGHT ([id number])[facility] HOSPITALOctavia [place] ([place])[address] [place] [address] [place] AST [Catalytic activity/Vol] 58 U/L High 15-46 [facility] Comment on above: Performed By: #### L AB99, LAB17 ####Steam Shovel Engineer: ARA WRIGHT ([id number])[facility]OSPITALOctavia [place] ([place])[address] [place] [address] [place] Bilirubin [Mass/Vol] 1.8 mg/dL High 0.2-1.3 [facility] Comment on above: Performed By: #### L AB99, LAB17 ####Steam Shovel Engineer: ARA WRIGHT ([id number])[facility]OSPITALOctavia [place] ([place])[address] [place] [address] Calcium [Mass/Vol] 9.6 mg/dL Normal 8.4-10.4 [facility] Comment on above: Performed By: #### Popeye DERAS99, LAB17 ####Steam Shovel Engineer: RAA WRIGHT ([id number])[facility] HOS[facility]ITALOctavia [place] ([place])[address] [place] [address] [place] Chloride [Moles/Vol] 109 mmol/L High 98-107 [facility] Comment on above: Performed By: #### Popeye DERAS99, LAB17 ####Steam Shovel Engineer: ARA WRIGHT ([id number])[facility] HOSPITALOctavia [place] ([place])[address] [place] [address] CO2 [Moles/Vol] 17 mmol/L Low 22-30 [facility] Comment on above: Performed By: #### Popeye LASSITER, LAB17 ####Steam Shovel Engineer: ARA WRIGHT ([id number])[facility] HOSPITALOctavia [place] ([place])[address] [place] [address] [place] Creatinine [Mass/Vol] 0.90 mg/dL Normal 0.66-1.25 [facility] Comment on above: Performed By: #### Popeye DERAS99, LAB17 ####Steam Shovel Engineer: ARA WRIGHT ([id number])[facility] HOSPITALOctavia [place] ([place])[address] [place] [address] GLOMERULAR FILTRATION RATE ML/MIN/1.73 SQ M.PREDICTED >90.0 Normal >60.0 [facility] Comment on above: Result Comment: Calc ulation based on the Chronic Kidney Disease Epidemiology Collaboration (CKD-EPI) equation refit without adjustment for race Performed By: #### L AB99, LAB17 ####Steam Shovel Engineer: ARA WRIGHT ([id number])HANNA [place]AN [place] ([place])[address] [place] [address] [place] Glucose [Mass/Vol] 133 mg/dL High 70-100 [facility] Comment on above: Performed By: #### L AB99, LAB17 ####Steam Shovel Engineer: ARA WRIGHT ([id number])[facility]OSPITALOctavia [place] ([place])[address] [place] [address] [place] Potassium [Moles/Vol] 4.0 mmol/L Normal 3.5-5.1 [facility] Comment on above: Performed By: #### L 99, LAB17 ####Steam Shovel Engineer: ARA WRIGHT ([id number])[facility]OS[facility]ITALOctavia [place] ([place])[address] Protein [Mass/Vol] 8.1 g/dL Normal 6.3-8.2 [facility] Comment on above: Performed By: #### L SRAVANI, LAB17 ####Steam Shovel Engineer: ARA WRIGHT ([id number])[facility]OS[facility]ITALOctavia [place] ([place])[address] [place] [address] [place] Sodium [Moles/Vol] 140 mmol/L Normal 135-145 [facility] Comment on above: Performed By: #### L 99, LAB17 ####Steam Shovel Engineer: ARA WRIGHT ([id number])[facility]OS[facility]ITALOctavia [place] ([place])[address] [place] [address] [place] Urea nitrogen [Mass/Vol] 11 mg/dL Normal 9-20 [facility] Comment on above: Performed By: #### L AB99, LAB17 ####Steam Shovel Engineer: ARA WRIGHT ([id number])[facility]OS[facility]ITALOctavia [place] ([place])[address] Comprehensive metabolic 1998 panelon 01-15-2024 Albumin [Mass/Vol] 4.7 g/dL 3.5 - 5.0 g/dL [facility] ALP [Catalytic activity/Vol] 86 U/L 38 - 126 U/L [facility] ALT [Catalytic activity/Vol] 29 U/L 0 - 49 U/L [facility] Anion gap [Moles/Vol] 14 mmol/L High 3 - 13 mmol/L [facility] AST [Catalytic activity/Vol] 58 U/L High 15 - 46 U/L [facility] Bilirubin [Mass/Vol] 1.8 mg/dL High 0.2 - 1 .3 mg/dL [facility] Calcium [Mass/Vol] 9.6 mg/dL 8.4 - 10. 4 mg/dL [facility] Chloride [Moles/Vol] 109 mmol/L High 98 - 10 7 mmol/L [facility] CO2 [Moles/Vol] 17 mmol/L Low 22 - 30 mmol/L [facility] Creatinine [Mass/Vol] 0.90 mg/dL 0.66 - 1.25 mg/dL [facility] GFR/1.73 sq M.predicted MDRD (S/P/Bld) [Vol rate/Area] - PINF [facility] Comment on above: Calculation based on the Chronic Kidney Disease Epidemiology Collaboration (CKD-EPI) equation refit without adjustment for race Glucose [Mass/Vol] 133 mg/dL High 70 - 100 mg/dL [facility] Interpretation and review of laboratory results Abnormal [facility] Potassium [Moles/Vol] 4.0 mmol/L 3.5 - 5.1 mmol/L [facility] Protein [Mass/Vol] 8.1 g/dL 6.3 - 8.2 g/dL [facility] Sodium [Moles/Vol] 140 mmol/L 135 - 145 mmol/L [facility] Urea nitrogen [Mass/Vol] 11 mg/dL 9 - 20 mg/dL [facility] DRUGS OF ABUSEon 01-15-2024 AMPHETAMINE SCREEN Negative Normal [facility] Comment on above: Performed By: #### L [id number] ####Steam Shovel Engineer: ARA WRIGHT ([id number])[facility]OSPITALDAKOTA [employer] ([employer])[address] [place] [address] BARBITURATES SCREEN Negative Normal [facility] Comment on above: Performed By: #### L [id number] ####Steam Shovel Engineer: ARA WRIGHT ([id number])[facility]OSPITALDAKOTA [place] ([facility]USLAB)[address] BENZODIAZEPINE SCREEN Negative Normal [facility] Comment on above: Performed By: #### L [id number] ####Steam Shovel Engineer: ARA WRIGHT ([id number])[facility] HOSPITALA [place] ([place])[address] COCAINE METAB. SCREEN Negative Normal [facility] Comment on above: Performed By: #### L [id number] ####Steam Shovel Engineer: ARA WRIGHT ([id number])[facility] HOSPITALA [place] ([place])[address] METHADONE SCREEN Negative Normal [facility] Comment on above: Performed By: #### L [id number] ####Steam Shovel Engineer: ARA WRIGHT ([id number])[facility] HOSPITALA [place] ([place])[address] OPIATES SCREEN Positive Normal [facility] Comment on above: Performed By: #### L [id number] ####Steam Shovel Engineer: ARA WRIGHT ([id number])[facility] HOSPITALA [place] ([place])[address] OXYCODONE SCREEN Negative Normal [facility] Comment on above: Performed By: #### L [id number] ####Steam Shovel Engineer: ARA WRIGHT ([id number])[facility] HOS[facility]ITALA [place] ([place])[address] [place] [address] PHENCYCLIDINE SCREEN Negative Normal [facility] Comment on above: Result Comment: ORDE [...] under separate order. Performed By: #### L [id number] ####Steam Shovel Engineer: ARA WRIGHT ([id number])[facility] SJST[facility])[address] [place] [address] ED Nursing Noteon 01-15-2024 ED Nursing Note Phoned [facility]. Hand off report given to MEGGAN Laurent. Nurse requesting that patient have another dose of ativan prior to leaving. Physician informed. Pratibha Okeefe RN 01/15/24 1647 Normal [facility] ED Nursing Note RN spoke Christie per patient request and asked her to bring him glasses and his cane, Christie acknowledged and thanked RN for the call. Aubree Ratliff RN 01/15/24 1322 Normal [facility] ED Nursing Note Patient declined any thing to eat or drink at this time. Call light within reach Pratibha Okeefe RN 01/15/24 1241 Normal [facility] ED Nursing Note Normal [facility] ED Provider Noteon ED Provider Note Normal [facility] ETHANOLon 01-15-2024 ETHANOL IN SER/PLAS <0.010 Normal 0.000-0.010 [facility] Comment on above: Result Comment: CLAIRE Buitrago COMMENTS:NOTE: This result is for medical treatment only. Analysis performed using non-forensic procedures. Performed By: #### L [id number] ####Steam Shovel Engineer: ARA WRIGHT ([id number])[facility])[address] [place] [address] Ethanol (Bld) [Mass/Vol]on 0 01-15-2024 Ethanol [Mass/Vol] g/dL 0.000 - 0.010 g/dL [facility] Interpretation and review of laboratory results Normal [facility] IDNon 01-15-2024 IDN Normal [facility] LIPASEon 01-15-2024 Lipase [Catalytic activity/Vol] 124 U/L Normal 23-300 [facility] Comment on above: Performed By: #### L AB99, LAB17 ####Steam Shovel Engineer: ARA WRIGHT ([id number])[facility] PAO ([place])[address] [place] [address] Laboratory - Chemistry and C hemistry - challengeon 01-15-2024 Lipase [Catalytic activity/Vol] 124 U/L 23 - 300 U/L [facility] Laboratory - Drug toxicology Ordered By: Perla Garcia on 01-15-2024 Amphetamines Screen method >1000 ng/mL Ql (U) Negative [facility] Barbiturates Screen method >200 ng/mL Ql (U) Negative [facility] Benzodiazepines Ql (U) Negative [facility] Methadone Screen Ql (U) Negative [facility] Opiates Screen Ql (U) Positive [facility] oxyCODONE Ql (U) Negative [facility] Phencyclidine Ql (U) Negative [facility] Laboratory - Microbiology an d Antimicrobial susceptibilityon 01-15-2024 SARS-CoV-2 (COVID-19) Ag IA.rapid Ql (Resp) Positive Abnormal Negative [facility] Comment on above: This test detects moreno th viable and non-viable virus. Positive results do not differentiate between SARS-CoV and SARS-CoV-2. If differentiation of specific SARS is needed, additional testing with a NAAT-based method is required. Method: Lateral flow immunoassay. Fact sheets for healthcare providers and patients can be found at the following sites: https://www.fda.gov/media/206536/download https://www.fda.gov/media/148219/download Lipase [Catalytic activity/V ol]on 01-15-2024 Interpretation and review of laboratory results Normal [facility] No Panel InformationOrdered By: Perla Garcia on 01-15-2024 COCAINE METAB. SCREEN Negative [facility] The expected value f or all of [...] is needed, request confirmation under separate order. [facility] No Panel Informationon 01-14 [facility] SARS-COV-2 ANTIGENon 024 SARS-COV-2 ANTIGEN Normal [facility] Comment on above: Performed By: #### L [id number] ####Steam Shovel Engineer: ARA WRIGHT ([id number])[facility] ([place])[address] [place] [address] SARS-CoV-2 (COVID-19) Ag IA. rapid Ql (Resp)on 01-15-2024 Interpretation and review of laboratory results Abnormal [facility] Urinalysis complete panel (U )on 01-15-2024 Amorphous Urates, Urine Few Abnormal Negative /HPF [facility] Bacteria LM.HPF (Urine sed) [#/Area] Few Abnormal Negative /HPF [facility] Bilirubin Ql (U) Negative Negative mg/dL [facility] Clarity (U) Clear Clear [facility] Color (U) Light Yellow Lt. Yellow [facility] Epithelial cells.squamous LM.HPF (Urine sed) [#/Area] Negative [facility] Glucose Ql (U) Normal Normal (<70) mg/dL [facility] Hemoglobin Ql (U) Negative Negative mg/dL [facility] Interpretation and review of laboratory results Abnormal [facility] Ketones (U) [Mass/Vol] Trace Abnormal Negat eznia mg/dL [facility] Leukocyte esterase Test strip Ql (U) Negative Negative Emma/uL [facility] Nitrite Ql (U) Negative Negative [facility] pH (U) 5.5 [pH] 5.0 - 8.0 pH [facility] Protein (U) [Mass/Vol] 20 mg/dL Abnormal Negative [facility] RBC LM.HPF (Urine sed) [#/Area] Negative [facility] Specific gravity (U) [Rel density] 1.014 1.005 - 1.030 [facility] Urobilinogen (U) [Mass/Vol] Normal Normal (0-1) mg/dL [facility] Volume, Urine 12 mL [facility] WBC LM.HPF (Urine sed) [#/Area] Negative [facility] CNPNon 12-29-2023 [facility] Telephone (GST[facility]) ----- WOODY NI ([id number]) 1960 M T Date Time Provider Department 12/29/23 MUNIRA STALEY GSTNOR During your visit today, [...] Swelling Date Reviewed: 12/25/2023 Reviewed by: Curtis Isabel, RT(R) - Fully Assessed Reason for Visit: [...] Status:Closed by SIMIN BENJAMIN on 12/29/23 Normal [facility] A1AT SerPl-mCncon 12-25-2023 Alpha 1 antitrypsin [Mass/Vol] 147 mg/dL Normal 90-200 [facility] Comment on above: Order Comment: Kel garcia Type: BLOOD SPECIMEN Ordering Facility: [facility] Address: [address] [place] [address] Performed By: #### 2 276-4, 2064-4, 1825-9, 3040-3 #### [facility] CLIA [id number] [address] [place] [address] [place] JONH BY IFA WITH REFLEXon Nuclear Ab Ql (S) Negative Normal Negative [facility] Comment on above: Order Comment: Kel garcia Type: BLOOD SPECIMEN Ordering Facility: [facility] Address: [facility], [place] [address] Result Comment: Anti -nuclear antibody test is used as an aid in diagnosis of systemic autoimmune diseases. Where positive and clinically warranted, follow-up using disease-specific testing is recommended. Low positive titers are not uncommon with advanced age, certain chronic infections, and malignancies among others. Test methodology: Indirect fluorescence immunoassay (IFA) using HEp-2 cells. Performed By: #### P LATF4 #### [facility] CLIA [id number] [address] [place] [address] [place] Ammonia Plas-sCncon 12-25-19 24 Ammonia (P) [Moles/Vol] 17 umol/L Normal 16-60 [facility] Comment on above: Order Comment: Speci men Type: BLOOD SPECIMEN Ordering Facility: [facility] Address: [place] [address] Performed By: #### P LATF4 #### [facility] CLIA [id number] [address] [place] [address] [place] CBC W Auto Differential pane l (Bld)on 12-25-2023 Basophils (Bld) [#/Vol] 0.04 10*3/uL Normal <0.11 [facility] Comment on above: Order Comment: Speci men Type: BLOOD SPECIMEN Ordering Facility: [facility] Address: [address] [place] [address] Performed By: #### 5 7021-8 #### [facility] [id number] [address] [place] [address] [place] Basophils/100 WBC (Bld) 0.4 % Normal [facility] Comment on above: Order Comment: Speci men Type: BLOOD SPECIMEN Ordering Facility: [facility] Address: [address] [place] [address] Performed By: #### 5 7021-8 #### [facility] [id number] [address] [place] [address] [place] Differential cell count method Nom (Bld) Auto Normal [facility] Comment on above: Order Comment: Speci men Type: BLOOD SPECIMEN Ordering Facility: [facility] Address: [address] [place] [address] Performed By: #### 5 7021-8 #### [facility] CLIA [id number] [address] [place] [address] [place] Eosinophils (Bld) [#/Vol] 0.04 10*3/uL Normal <0.46 [facility] Comment on above: Order Comment: Speci men Type: BLOOD SPECIMEN Ordering Facility: [facility] Address: [address] [place] [address] Performed By: #### 5 7021-8 #### [facility] CLIA [id number] [address] [place] [address] [place] Eosinophils/100 WBC (Bld) 0.4 % Normal [facility] Comment on above: Order Comment: Speci men Type: BLOOD SPECIMEN Ordering Facility: [facility] Address: [address] [place] [address] Performed By: #### 5 7021-8 #### [facility] CLIA [id number] [address] [place] [address] [place] Erythrocyte distribution width (RBC) [Ratio] 12.4 % Normal 11.5-15.0 [facility] Comment on above: Order Comment: Speci men Type: BLOOD SPECIMEN Ordering Facility: [facility] Address: [address] [place] [address] Performed By: #### 5 7021-8 #### [facility] CLIA [id number] [address] [place] [address] [place] Hematocrit (Bld) [Volume fraction] 39.0 % Normal 39.0-51.0 [facility] Comment on above: Order Comment: Speci men Type: BLOOD SPECIMEN Ordering Facility: [facility] Address: [address] [place] [address] Performed By: #### 5 7021-8 #### [facility] CLIA [id number] [address] [place] [address] [place] Hemoglobin (Bld) [Mass/Vol] 13.5 g/dL Normal 13.0-17.0 [facility] Comment on above: Order Comment: Speci men Type: BLOOD SPECIMEN Ordering Facility: [facility] Address: [address] [place] [address] Performed By: #### 5 7021-8 #### [facility] CLIA [id number] [address] [place] [address] [place] Immature granulocytes (Bld) [#/Vol] 0.10 10*3/uL High <0.10 [facility] Comment on above: Order Comment: Speci men Type: BLOOD SPECIMEN Ordering Facility: [facility] Address: [address] [place] [address] Performed By: #### 5 7021-8 #### [facility] CLIA [id number] [address] [place] [address] [place] Immature granulocytes/100 WBC (Bld) 1.0 % Normal [facility] Comment on above: Order Comment: Speci men Type: BLOOD SPECIMEN Ordering Facility: [facility] Address: [address] [place] [address] Performed By: #### 5 7021-8 #### [facility] CLIA [id number] [address] [place] [address] [place] Lymphocytes (Bld) [#/Vol] 2.60 10*3/uL Normal 1.00-4.00 [facility] Comment on above: Order Comment: Speci men Type: BLOOD SPECIMEN Ordering Facility: [facility] Address: [address] [place] [address] Performed By: #### 5 7021-8 #### [facility] CLIA [id number] [address] [place] [address] [place] Lymphocytes/100 WBC (Bld) 25.2 % Normal [facility] Comment on above: Order Comment: Speci men Type: BLOOD SPECIMEN Ordering Facility: [facility] Address: [address] [place] [address], [place] [address] Performed By: #### 5 7021-8 #### [facility] CLIA [id number] [address] [place] [address] STATES [facility] MCH (RBC) [Entitic mass] 32.0 pg Normal 26.0-34.0 [facility] Comment on above: Order Comment: Speci men Type: BLOOD SPECIMEN Ordering Facility: [facility] Address: [address] [place] [address] Performed By: #### 5 7021-8 #### [facility] CLIA [id number] [address] [place] [address] [place] MCHC (RBC) [Mass/Vol] 34.6 g/dL Normal 30.5-36.0 [facility] Comment on above: Order Comment: Speci men Type: BLOOD SPECIMEN Ordering Facility: [facility] Address: [address] [place] [address] Performed By: #### 5 7021-8 #### [facility] [id number] [address] [place] [address] [place] MCV (RBC) [Entitic vol] 92.4 fL Normal 80.0-100.0 [facility] Comment on above: Order Comment: Speci men Type: BLOOD SPECIMEN Ordering Facility: [facility] Address: [address] [place] [address] Performed By: #### 5 7021-8 #### [facility] CLIA [id number] [address] [place] [address] [place] Monocytes (Bld) [#/Vol] 0.46 10*3/uL Normal <0.87 [facility] Comment on above: Order Comment: Speci men Type: BLOOD SPECIMEN Ordering Facility: [facility] Address: [address] [place] [address] Performed By: #### 5 7021-8 #### [facility] CLIA [id number] [facility] [place] [address] [place] Monocytes/100 WBC (Bld) 4.5 % Normal [facility] Comment on above: Order Comment: Speci men Type: BLOOD SPECIMEN Ordering Facility: [facility] Address: [address] [place], [place] [address] Performed By: #### 5 7021-8 #### [facility] CLIA [id number] [address] [place] [address] [place] Neutrophils (Bld) [#/Vol] 7.09 10*3/uL Normal 1.45-7.50 [facility] Comment on above: Order Comment: Speci men Type: BLOOD SPECIMEN Ordering Facility: [facility] Address: [address] [place] [address] Performed By: #### 5 7021-8 #### [facility] CLIA [id number] [address] [place] [address] [place] Neutrophils/100 WBC (Bld) 68.5 % Normal [facility] Comment on above: Order Comment: Speci men Type: BLOOD SPECIMEN Ordering Facility: [facility] Address: [address] [place] [address] Performed By: #### 5 7021-8 #### [facility] CLIA [id number] [address] [place] [address] [place] Nucleated RBC (Bld) [#/Vol] 10*3/uL Normal <0.01 [facility] Comment on above: Order Comment: Speci men Type: BLOOD SPECIMEN Ordering Facility: [facility] Address: [address] [place] [address] Performed By: #### 5 7021-8 #### [facility] CLIA [id number] [address] [place] [address] [place] Nucleated RBC/100 WBC (Bld) [Ratio] 0.0 /100 WBC Normal [facility] Comment on above: Order Comment: Speci men Type: BLOOD SPECIMEN Ordering Facility: [facility] Address: [address] [place], [place] [address] Performed By: #### 5 7021-8 #### [facility] CLIA [id number] [address] [place] [address] [place] Platelet mean volume (Bld) [Entitic vol] 8.7 fL Low 9.0-12.7 [facility] Comment on above: Order Comment: Speci men Type: BLOOD SPECIMEN Ordering Facility: [facility] Address: [address] [place], [place] [address] Performed By: #### 5 7021-8 #### [facility] CLIA [id number] [address] [place] [address] [place] Platelets (Bld) [#/Vol] 153 10*3/uL Normal 150-400 [facility] Comment on above: Order Comment: Speci men Type: BLOOD SPECIMEN Ordering Facility: [facility] Address: [address] [place], [place] [address] Performed By: #### 5 7021-8 #### [facility] CLIA [id number] [address] [place] [address] [place] RBC (Bld) [#/Vol] 4.22 10*6/uL Normal 4.20-6.00 [facility] Comment on above: Order Comment: Speci men Type: BLOOD SPECIMEN Ordering Facility: [facility] Address: [address] [place] [address] Performed By: #### 5 7021-8 #### [facility] CLIA [id number] [address] [place] [address] [place] WBC (Bld) [#/Vol] 10.33 10*3/uL Normal 3.70-11.00 [facility] Comment on above: Order Comment: Speci men Type: BLOOD SPECIMEN Ordering Facility: [facility] Address: [address] [place] [address] Performed By: #### 5 7021-8 #### [facility] CLIA [id number] [address] [place] [address] [place] CT ABD/PEL W IVCONon 024 CT ABD/PEL W IVCON * * *Final Report* * * DATE OF EXAM: Dec 25 2023 2:24PM [facility] 0530 - CT ABD/PEL W IVCON / [...] fractures are noted bilaterally. Lower thorax: Unremarkable. Cigar Sorter (topogram) images: IMPRESSION: 1. No acute findings are identified. 2. Cirrhotic morphology. 3. Right nephrolithiasis. No hydronephrosis. Rope Cleaner: HAJA Transcribe Date/Time: Dec 25 2023 2:29P Dictated by : OKSANA KLINE MD This examination was interpreted and the report reviewed and electronically signed by: OKSANA KLINE MD on Dec 25 2023 2:39PM EST [id number] Normal [facility] Ceruloplasmin SerPl-mCncon 0 12-25-2023 Ceruloplasmin [Mass/Vol] 21 mg/dL Normal 15-30 [facility] Comment on above: Order Comment: Speci radha Type: BLOOD SPECIMEN Ordering Facility: [facility] Address: [address] [place] [address] Performed By: #### 2 276-4, 2064-4, 1825-9, 3040-3 #### [facility] CLIA [id number] [address] [place] [address] [place] Comprehensive metabolic 2000 panelon 12-25-2023 Albumin [Mass/Vol] 4.3 g/dL Normal 3.9-4.9 [facility] Comment on above: Order Comment: Kel garcia Type: BLOOD SPECIMEN Ordering Facility: [facility] Address: [address] [place] [address] Performed By: #### 2 4323-8, 26055-8 #### [facility] CLIA [id number] [address] [place] [address] [place] ALP [Catalytic activity/Vol] 69 U/L Normal 38-113 [facility] Comment on above: Order Comment: Kel garcia Type: BLOOD SPECIMEN Ordering Facility: [facility] Address: [address] [place] [address] Performed By: #### 2 4323-8, 68373-6 #### [facility] CLIA [id number] [address] [place] [address] [place] ALT [Catalytic activity/Vol] 15 U/L Normal 10-54 [facility] Comment on above: Order Comment: Speci men Type: BLOOD SPECIMEN Ordering Facility: [facility] Address: [address] [place] [address] Performed By: #### 2 4323-8, #### [facility] CLIA [id number] [address] [place] [address] [place] Anion gap [Moles/Vol] 12 mmol/L Normal 9-18 [facility] Comment on above: Order Comment: Speci men Type: BLOOD SPECIMEN Ordering Facility: [facility] Address: [address] [place] [address] Performed By: #### 2 4323-8, #### [facility] CLIA [id number] [address] [place] [address] [place] AST [Catalytic activity/Vol] 16 U/L Normal 14-40 [facility] Comment on above: Order Comment: Speci men Type: BLOOD SPECIMEN Ordering Facility: [facility] Address: [address] [place] [address] Performed By: #### 2 4323-8, #### [facility] CLIA [id number] [address] [place] [address] [place] Bilirubin [Mass/Vol] 0.6 mg/dL Normal 0.2-1.3 [facility] Comment on above: Order Comment: Speci men Type: BLOOD SPECIMEN Ordering Facility: [facility] Address: [address] [place] [address] Performed By: #### 2 4323-8, #### [facility] CLIA [id number] [address] [place] [address] [place] Calcium [Mass/Vol] 9.6 mg/dL Normal 8.5-10.2 [facility] Comment on above: Order Comment: Speci men Type: BLOOD SPECIMEN Ordering Facility: [facility] Address: [address] [place] [address] Performed By: #### 2 4323-8, #### [facility] CLIA [id number] [address] [place] [address] [place] Chloride [Moles/Vol] 95 mmol/L Low 97-105 [facility] Comment on above: Order Comment: Speci men Type: BLOOD SPECIMEN Ordering Facility: [facility] Address: [address] [place], [place] [address] Performed By: #### 2 4323-8, #### [facility] CLIA [id number] [address] [place] [address] [place] CO2 [Moles/Vol] 23 mmol/L Normal 22-30 [facility] Comment on above: Order Comment: Speci men Type: BLOOD SPECIMEN Ordering Facility: [facility] Address: [address] [place], [place] [address] Performed By: #### 2 4323-8, #### [facility] CLIA [id number] [address] [place] [address] [place] Creatinine [Mass/Vol] 0.78 mg/dL Normal 0.73-1.22 [facility] Comment on above: Order Comment: Speci men Type: BLOOD SPECIMEN Ordering Facility: [facility] Address: [address] [place] [address] Performed By: #### 2 4323-8, #### [facility] CLIA [id number] [address] [place] [address] [place] Creatinine and Glomerular filtration rate.predicted panel (S/P/Bld) 100 mL/min/1.73m??? Normal >=60 [facility] Comment on above: Order Comment: Speci men Type: BLOOD SPECIMEN Ordering Facility: [facility] Address: [address] [place] [address] Result Comment: Brie mated Glomerular Filtration Rate [...] reflect actual GFR. Performed By: #### 2 4323-8, #### [facility] [id number] [address] [place] [address] [place] Glucose [Mass/Vol] 108 mg/dL High 74-99 [facility] Comment on above: Order Comment: Kel garcia Type: BLOOD SPECIMEN Ordering Facility: [facility] Address: [address] [place] [address] Result Comment: The [place] [employer] (ADA) provides guidance for cutoff [...] Standards of Medical Care in Diabetes 2016, [place] [employer]. Diabetes Care. 2016.39(Suppl 1). Performed By: #### 2 432-8, #### [facility] [id number] [address] [place] [address] [place] Potassium [Moles/Vol] 3.5 mmol/L Low 3.7-5.1 [facility] Comment on above: Order Comment: Kel garcia Type: BLOOD SPECIMEN Ordering Facility: [facility] Address: [address] [place] [id number] Performed By: #### 2 4323-8, #### [facility] CLIA [id number] [address] [place] [address] [place] Protein [Mass/Vol] 7.3 g/dL Normal 6.3-8.0 [facility] Comment on above: Order Comment: Speci men Type: BLOOD SPECIMEN Ordering Facility: [facility] Address: [address] [place] [address] Performed By: #### 2 4323-8, #### [facility] CLIA [id number] [address] [place] [address] [place] Sodium [Moles/Vol] 130 mmol/L Low 136-144 [facility] Comment on above: Order Comment: Speci men Type: BLOOD SPECIMEN Ordering Facility: [facility] Address: [address] [place] [address] Performed By: #### 2 43238, #### [facility] CLIA [id number] [address] [place] [address] [place] Urea nitrogen [Mass/Vol] 11 mg/dL Normal 9-24 [facility] Comment on above: Order Comment: Speci men Type: BLOOD SPECIMEN Ordering Facility: [facility] Address: [address] [place] [address] Performed By: #### 2 4323-8, #### [facility] CLIA [id number] [address] [place] [address] [place] Ferritin SerPl-mCncon 2023 Ferritin [Mass/Vol] 295.0 ng/mL Normal 30.3-565.7 [facility] Comment on above: Order Comment: Speci men Type: BLOOD SPECIMEN Ordering Facility: [facility] Address: [address] [place], [place] [address] Performed By: #### 2 276-4, 2064-4, 1825-9, 3040-3 #### [facility] CLIA [id number] [address] [place] [address] [place] Lipase SerPl-cCncon 12-25-19 Lipase [Catalytic activity/Vol] 39 U/L Normal 16-61 [facility] Comment on above: Order Comment: Speci men Type: BLOOD SPECIMEN Ordering Facility: [facility] Address: [address] [place] [address] Performed By: #### 2 276-4, 2064-4, 1825-9, 3040-3 #### [facility] CLIA [id number] [address] [place] [address] [place] Magnesium SerPl-mCncon 12-24 Magnesium [Mass/Vol] 1.8 mg/dL Normal 1.7-2.3 [facility] Comment on above: Order Comment: Speci men Type: BLOOD SPECIMEN Ordering Facility: [facility] Address: [address] [place] [address] Performed By: #### 2 4323-8, 50661-0 #### [facility] CLIA [id number] [address] [place] [address] [place] Mitochondria Ab IF Ql (S)on 12-25-2023 Mitochondria M2 Ab IA Qn (S) 1.6 Units Normal <=20.0 [facility] Comment on above: Order Comment: Speci men Type: BLOOD SPECIMEN Ordering Facility: [facility] Address: [address] [place] [address] Performed By: #### 1 4252-1, ANAIFR, 77093-8 #### [facility] CLIA [id number] [address] [place] [address] [place] Mitochondria M2 Ab Ql (S) Negative Normal Negative [facility] Comment on above: Order Comment: Speci men Type: BLOOD SPECIMEN Ordering Facility: [facility] Address: [address] [place] [address] Result Comment: Anti -mitochondrial antibody test is used as an aid in diagnosis of primary biliary cholangitis. Clinical correlation is required. Performed By: #### 1 4252-1, JAN, 13739-6 #### [facility] CLIA [id number] [facility] [place] [address] [place] PT panel Coag (PPP)on 2023 INR Coag (PPP) [Relative time] 1.0 {INR} Normal 0.9-1.3 [facility] Comment on above: Order Comment: Speci radha Type: BLOOD SPECIMEN Ordering Facility: [facility] Address: [facility] [place] [address] Result Comment: Celine min K Antagonist (VKA) Therapeutic Range: INR 2 to 3 (Target INR of 2.5) Note: For patients treated with VKA drugs, such as warfarin, the [place] [employer] 2012 Guideline recommends [...] Chest 2012, 141:7S-47S Vandana RA, et al. [facility] 2017, 70: 252-289 Performed By: #### P LATF4 #### [facility] CLIA [id number] [address] [place] [address] [place] PT Coag (PPP) [Time] 10.2 s Normal <13.1 [facility] Comment on above: Order Comment: Kel garcia Type: BLOOD SPECIMEN Ordering Facility: [facility] Address: [facility], [place] [id number] Performed By: #### P LATF4 #### [facility] CLIA [id number] [facility] [address] [place] Smooth muscle Ab Ql (S)on ACTIN SMOOTH MUSCLE IGG QUALITATIVE Negative Normal Negative [facility] Comment on above: Order Comment: Speci men Type: BLOOD SPECIMEN Ordering Facility: [facility] Address: [address] [place] [address] Performed By: #### 1 4252-1, JAN, 88835-4 #### [facility] CLIA [id number] [address] [place] [address] ACTIN SMOOTH MUSCLE IGG QUANTITATIVE 13 Units Normal <20 [facility] Comment on above: Order Comment: Speci men Type: BLOOD SPECIMEN Ordering Facility: [facility] Address: [address] [place] [address] Performed By: #### 1 4252-1, JAN, 25424-6 #### [facility] CLIA [id number] [address] [place] [address] [place] CNOVon 12-24-2023 CNOV Office Visit ([facility]ST[facility] ) ----- CHERYLWOODY PORRAS ([id number]) 1960 M T Date Time Provider Department [...] performed labs, got recommended EGD through [facility]. 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 Hospital course reviewed and copied/pasted below. No imaging performed. Following with [facility] addition medicine program to d/c alcohol. Currently drinking 12-18 beers per day. Admits to generalized abdominal pain, 10/10, increased acid indigestion on a regular basis, intermittent episodes of emesis daily. No longer taking previously prescribed Protonix. Bms are multiple per day, loose to watery, no blood/black coloring. Weight has been fluctuating at about 10 lbs. Low grade fevers at home. [facility] Admission 10/2023 HOSPITAL COURSE: Woody Ni is [...] diet and he is being discharged to [facility] EGD 2021 OV 2021 Woody Ni is a [...] (FLONASE) 50 mcg/actuation nasal spray Use 1 [place] in the nose once daily as needed. [...] iron deficiency (more content not included)... Normal [facility] CBC panel Auto (Bld)on 10-27 Erythrocyte distribution width (RBC) [Ratio] 13.8 % 11.5 - 14.5 % [facility] Hematocrit (Bld) [Volume fraction] 32.1 % Low 40.0 - 52.0 % [facility] Hemoglobin (Bld) [Mass/Vol] 10.8 g/dL Low 13.0 - 18.0 g/dL [facility] Interpretation and review of laboratory results Abnormal [facility] MCH (RBC) [Entitic mass] 34.0 pg 26.0 - 34.0 pg [facility] MCHC (RBC) [Mass/Vol] 33.7 % 32.0 - 36.0 % [facility] MCV (RBC) [Entitic vol] 100.9 fL High 80.0 - 98.0 fL [facility] Platelet mean volume (Bld) [Entitic vol] 8.2 fL 7.4 - 12.4 fL [facility] Platelets (Bld) [#/Vol] 76 10*3/uL Low 140 - 440 10*3/uL [facility] RBC (Bld) [#/Vol] 3.18 10*6/uL Low 4.40 - 5.9 0 10*6/uL [facility] WBC (Bld) [#/Vol] 3.3 10*3/uL Low 3.6 - 10.7 10*3/uL [facility] Comprehensive metabolic 1998 panelon 10-27-2023 Albumin [Mass/Vol] 3.5 g/dL 3.5 - 5.0 g/dL [facility] ALP [Catalytic activity/Vol] 70 U/L 38 - 126 U/L [facility] ALT [Catalytic activity/Vol] 50 U/L High 0 - 49 U/L [facility] Anion gap [Moles/Vol] 10 mmol/L 3 - 13 mmol/L [facility] AST [Catalytic activity/Vol] 63 U/L High 15 - 46 U/L [facility] Bilirubin [Mass/Vol] 0.6 mg/dL 0.2 - 1 .3 mg/dL [facility] Calcium [Mass/Vol] 9.1 mg/dL 8.4 - 10. 4 mg/dL [facility] Chloride [Moles/Vol] 100 mmol/L 98 - 10 7 mmol/L [facility] CO2 [Moles/Vol] 24 mmol/L 22 - 30 mmol/L [facility] Creatinine [Mass/Vol] 0.66 mg/dL 0.66 - 1.25 mg/dL [facility] GFR/1.73 sq M.predicted MDRD (S/P/Bld) [Vol rate/Area] - PINF [facility] Comment on above: Calculation based on the Chronic Kidney Disease Epidemiology Collaboration (CKD-EPI) equation refit without adjustment for race Glucose [Mass/Vol] 111 mg/dL High 70 - 100 mg/dL [facility] Potassium [Moles/Vol] 3.6 mmol/L 3.5 - 5.1 mmol/L [facility] Protein [Mass/Vol] 6.5 g/dL 6.3 - 8.2 g/dL [facility] Sodium [Moles/Vol] 134 mmol/L Low 135 - 145 mmol/L [facility] Urea nitrogen [Mass/Vol] 11 mg/dL 9 - 20 mg/dL [facility] Lipaseon 10-27-2023 Lipase [Catalytic activity/Vol] 309 U/L High 23 - 300 U/L [facility] No Panel Informationon 10-27 Interpretation and review of laboratory results Abnormal [facility] CBC panel Auto (Bld)on 10-26 Erythrocyte distribution width (RBC) [Ratio] 13.3 % 11.5 - 14.5 % [facility] Hematocrit (Bld) [Volume fraction] 30.3 % Low 40.0 - 52.0 % [facility] Hemoglobin (Bld) [Mass/Vol] 10.2 g/dL Low 13.0 - 18.0 g/dL [facility] Interpretation and review of laboratory results Abnormal [facility] MCH (RBC) [Entitic mass] 33.8 pg 26.0 - 34.0 pg [facility] MCHC (RBC) [Mass/Vol] 33.7 % 32.0 - 36.0 % [facility] MCV (RBC) [Entitic vol] 100.2 fL High 80.0 - 98.0 fL [facility] Platelet mean volume (Bld) [Entitic vol] 8.6 fL 7.4 - 12.4 fL [facility] Platelets (Bld) [#/Vol] 52 10*3/uL Low 140 - 440 10*3/uL [facility] RBC (Bld) [#/Vol] 3.02 10*6/uL Low 4.40 - 5.9 0 10*6/uL [facility] WBC (Bld) [#/Vol] 3.7 10*3/uL 3.6 - 10.7 10*3/uL [facility] Comprehensive metabolic 1998 panelon 10-26-2023 Albumin [Mass/Vol] 3.2 g/dL Low 3.5 - 5.0 g/dL [facility] ALP [Catalytic activity/Vol] 67 U/L 38 - 126 U/L [facility] ALT [Catalytic activity/Vol] 46 U/L 0 - 49 U/L [facility] Anion gap [Moles/Vol] 5 mmol/L 3 - 13 mmol/L [facility] AST [Catalytic activity/Vol] 61 U/L High 15 - 46 U/L [facility] Bilirubin [Mass/Vol] 0.6 mg/dL 0.2 - 1 .3 mg/dL [facility] Calcium [Mass/Vol] 8.8 mg/dL 8.4 - 10. 4 mg/dL [facility] Chloride [Moles/Vol] 100 mmol/L 98 - 10 7 mmol/L [facility] CO2 [Moles/Vol] 24 mmol/L 22 - 30 mmol/L [facility] Creatinine [Mass/Vol] 0.60 mg/dL Low 0.66 - 1.25 mg/dL [facility] GFR/1.73 sq M.predicted MDRD (S/P/Bld) [Vol rate/Area] - PINF [facility] Comment on above: Calculation based on the Chronic Kidney Disease Epidemiology Collaboration (CKD-EPI) equation refit without adjustment for race Glucose [Mass/Vol] 104 mg/dL High 70 - 100 mg/dL [facility] Potassium [Moles/Vol] 4.1 mmol/L 3.5 - 5.1 mmol/L [facility] Protein [Mass/Vol] 6.1 g/dL Low 6.3 - 8.2 g/dL [facility] Sodium [Moles/Vol] 130 mmol/L Low 135 - 145 mmol/L [facility] Urea nitrogen [Mass/Vol] 9 mg/dL 9 - 20 mg/dL [facility] Heparin-induced platelet ant ibodyOrdered By: Anastacia Stevenson on 10-26-2023 INTERPRETATION (PF4) Negative Negative [facility] PLATELET AB, HEPARIN 0.138 NINF [facility] No anti-platelet fac tor 4 IgG antibody is detected by JORDI assay. Heparin-induced thrombocytopenia (HIT) is unlikely, but should be excluded based on clinical factors. [facility] Lipaseon 10-26-2023 Lipase [Catalytic activity/Vol] 314 U/L High 23 - 300 U/L [facility] Magnesiumon 10-26-2023 Magnesium [Mass/Vol] 1.5 mg/dL Low 1.6 - 2 .3 mg/dL [facility] Magnesium [Mass/Vol]on 10-26 Interpretation and review of laboratory results Abnormal [facility] No Panel Informationon 10-26 Interpretation and review of laboratory results Abnormal [facility] CBC panel Auto (Bld)on 10-25 Erythrocyte distribution width (RBC) [Ratio] 13.2 % 11.5 - 14.5 % [facility] Hematocrit (Bld) [Volume fraction] 28.2 % Low 40.0 - 52.0 % [facility] Hemoglobin (Bld) [Mass/Vol] 9.8 g/dL Low 13.0 - 18.0 g/dL [facility] Interpretation and review of laboratory results Abnormal [facility] MCH (RBC) [Entitic mass] 34.4 pg High 26.0 - 34.0 pg [facility] MCHC (RBC) [Mass/Vol] 34.6 % 32.0 - 36.0 % [facility] MCV (RBC) [Entitic vol] 99.3 fL High 80.0 - 98.0 fL [facility] Platelet mean volume (Bld) [Entitic vol] 7.6 fL 7.4 - 12.4 fL [facility] Platelets (Bld) [#/Vol] 40 10*3/uL Low 140 - 440 10*3/uL [facility] RBC (Bld) [#/Vol] 2.84 10*6/uL Low 4.40 - 5.9 0 10*6/uL [facility] WBC (Bld) [#/Vol] 3.3 10*3/uL Low 3.6 - 10.7 10*3/uL [facility] Comprehensive metabolic 1998 panelon 10-25-2023 Albumin [Mass/Vol] 3.1 g/dL Low 3.5 - 5.0 g/dL [facility] ALP [Catalytic activity/Vol] 64 U/L 38 - 126 U/L [facility] ALT [Catalytic activity/Vol] 45 U/L 0 - 49 U/L [facility] Anion gap [Moles/Vol] 7 mmol/L 3 - 13 mmol/L [facility] AST [Catalytic activity/Vol] 69 U/L High 15 - 46 U/L [facility] Bilirubin [Mass/Vol] 0.7 mg/dL 0.2 - 1 .3 mg/dL [facility] Calcium [Mass/Vol] 8.4 mg/dL 8.4 - 10. 4 mg/dL [facility] Chloride [Moles/Vol] 103 mmol/L 98 - 10 7 mmol/L [facility] CO2 [Moles/Vol] 22 mmol/L 22 - 30 mmol/L [facility] Creatinine [Mass/Vol] 0.60 mg/dL Low 0.66 - 1.25 mg/dL [facility] GFR/1.73 sq M.predicted MDRD (S/P/Bld) [Vol rate/Area] - PINF [facility] Comment on above: Calculation based on the Chronic Kidney Disease Epidemiology Collaboration (CKD-EPI) equation refit without adjustment for race Glucose [Mass/Vol] 94 mg/dL 70 - 100 mg/dL [facility] Potassium [Moles/Vol] 4.0 mmol/L 3.5 - 5.1 mmol/L [facility] Protein [Mass/Vol] 5.9 g/dL Low 6.3 - 8.2 g/dL [facility] Sodium [Moles/Vol] 131 mmol/L Low 135 - 145 mmol/L [facility] Urea nitrogen [Mass/Vol] 7 mg/dL Low 9 - 20 mg/dL [facility] Lipaseon 10-25-2023 Lipase [Catalytic activity/Vol] 321 U/L High 23 - 300 U/L [facility] Magnesiumon 10-25-2023 Magnesium [Mass/Vol] 1.4 mg/dL Low 1.6 - 2 .3 mg/dL [facility] No Panel Informationon 10-25 Interpretation and review of laboratory results Abnormal [facility] CBC panel Auto (Bld)on 10-24 Erythrocyte distribution width (RBC) [Ratio] 13.2 % 11.5 - 14.5 % [facility] Hematocrit (Bld) [Volume fraction] 33.7 % Low 40.0 - 52.0 % [facility] Hemoglobin (Bld) [Mass/Vol] 11.4 g/dL Low 13.0 - 18.0 g/dL [facility] Interpretation and review of laboratory results Abnormal [facility] MCH (RBC) [Entitic mass] 34.0 pg 26.0 - 34.0 pg [facility] MCHC (RBC) [Mass/Vol] 33.8 % 32.0 - 36.0 % [facility] MCV (RBC) [Entitic vol] 100.7 fL High 80.0 - 98.0 fL [facility] Platelet mean volume (Bld) [Entitic vol] 7.8 fL 7.4 - 12.4 fL [facility] Platelets (Bld) [#/Vol] 37 10*3/uL Low 140 - 440 10*3/uL [facility] RBC (Bld) [#/Vol] 3.35 10*6/uL Low 4.40 - 5.9 0 10*6/uL [facility] WBC (Bld) [#/Vol] 3.0 10*3/uL Low 3.6 - 10.7 10*3/uL [facility] Comprehensive metabolic 1998 panelon 10-24-2023 Albumin [Mass/Vol] 3.8 g/dL 3.5 - 5.0 g/dL [facility] ALP [Catalytic activity/Vol] 84 U/L 38 - 126 U/L [facility] ALT [Catalytic activity/Vol] 65 U/L High 0 - 49 U/L [facility] Anion gap [Moles/Vol] 9 mmol/L 3 - 13 mmol/L [facility] AST [Catalytic activity/Vol] 112 U/L High 15 - 46 U/L [facility] Bilirubin [Mass/Vol] 1.7 mg/dL High 0.2 - 1 .3 mg/dL [facility] Calcium [Mass/Vol] 8.5 mg/dL 8.4 - 10. 4 mg/dL [facility] Chloride [Moles/Vol] 103 mmol/L 98 - 10 7 mmol/L [facility] CO2 [Moles/Vol] 19 mmol/L Low 22 - 30 mmol/L [facility] Creatinine [Mass/Vol] 0.59 mg/dL Low 0.66 - 1.25 mg/dL [facility] GFR/1.73 sq M.predicted MDRD (S/P/Bld) [Vol rate/Area] - PINF [facility] Comment on above: Calculation based on the Chronic Kidney Disease Epidemiology Collaboration (CKD-EPI) equation refit without adjustment for race Glucose [Mass/Vol] 89 mg/dL 70 - 100 mg/dL [facility] Interpretation and review of laboratory results Abnormal [facility] Potassium [Moles/Vol] 4.3 mmol/L 3.5 - 5.1 mmol/L [facility] Protein [Mass/Vol] 7.1 g/dL 6.3 - 8.2 g/dL [facility] Sodium [Moles/Vol] 131 mmol/L Low 135 - 145 mmol/L [facility] Urea nitrogen [Mass/Vol] 6 mg/dL Low 9 - 20 mg/dL [facility] Slightly Hemolyzed [facility] Lipaseon 10-24-2023 Lipase [Catalytic activity/Vol] 389 U/L High 23 - 300 U/L [facility] Lipase [Catalytic activity/V ol]on 10-24-2023 Interpretation and review of laboratory results Abnormal [facility] Magnesiumon 10-24-2023 Magnesium [Mass/Vol] 1.9 mg/dL 1.6 - 2 .3 mg/dL [facility] Magnesium [Mass/Vol]on 10-24 Interpretation and review of laboratory results Normal [facility] ANTI PLT FACTOR 4 ABon 10-23 Heparin induced platelet IgG Armani (S) [Interp] Negative Normal Negative [facility] Comment on above: Order Comment: Kel garcia Type: BLOOD SPECIMEN Ordering Facility: [facility] Address: [facility], [place] [address] Result Comment: No a nti-platelet factor 4 IgG antibody is detected by JORDI assay. Heparin-induced thrombocytopenia (HIT) is unlikely, but should be excluded based on clinical factors. Performed By: #### P LATF4 #### [facility] CLIA [id number] [address] [place] [address] [place] Platelet factor 4 Qn (PPP) 0.138 OD Normal <0.400 [facility] Comment on above: Order Comment: Kel garcia Type: BLOOD SPECIMEN Ordering Facility: [facility] Address: [facility], [place] [address] Result Comment: Not calculated Performed By: #### P LATF4 #### [facility] CLIA [id number] [address] [place] [id number] [place] CBC panel Auto (Bld)Ordered By: Daniel Allen on 10-23-2023 Erythrocyte distribution width (RBC) [Ratio] 13.3 % 11.5 - 14.5 % [facility] Hematocrit (Bld) [Volume fraction] 31.8 % Low 40.0 - 52.0 % [facility] Hemoglobin (Bld) [Mass/Vol] 11.0 g/dL Low 13.0 - 18.0 g/dL [facility] Interpretation and review of laboratory results Abnormal [facility] MCH (RBC) [Entitic mass] 34.0 pg 26.0 - 34.0 pg [facility] MCHC (RBC) [Mass/Vol] 34.5 % 32.0 - 36.0 % [facility] MCV (RBC) [Entitic vol] 98.7 fL High 80.0 - 98.0 fL [facility] Platelet mean volume (Bld) [Entitic vol] 8.2 fL 7.4 - 12.4 fL [facility] Platelets (Bld) [#/Vol] 38 10*3/uL Low 140 - 440 10*3/uL [facility] RBC (Bld) [#/Vol] 3.23 10*6/uL Low 4.40 - 5.9 0 10*6/uL [facility] WBC (Bld) [#/Vol] 4.3 10*3/uL 3.6 - 10.7 10*3/uL [facility] Cobalamin (Vitamin B12) [Mas s/Vol]on 10-23-2023 Interpretation and review of laboratory results Normal [facility] Comprehensive metabolic 1998 panelOrdered By: Montrell Charles on 10-23-2023 Albumin [Mass/Vol] 2.7 g/dL Low 3.5 - 5.0 g/dL [facility] ALP [Catalytic activity/Vol] 56 U/L 38 - 126 U/L [facility] ALT [Catalytic activity/Vol] 41 U/L 0 - 49 U/L [facility] Anion gap [Moles/Vol] 7 mmol/L 3 - 13 mmol/L [facility] AST [Catalytic activity/Vol] 86 U/L High 15 - 46 U/L [facility] Bilirubin [Mass/Vol] 1.7 mg/dL High 0.2 - 1 .3 mg/dL [facility] Calcium [Mass/Vol] 6.4 mg/dL Low 8.4 - 10. 4 mg/dL [facility] Chloride [Moles/Vol] 107 mmol/L 98 - 10 7 mmol/L [facility] CO2 [Moles/Vol] 18 mmol/L Low 22 - 30 mmol/L [facility] Creatinine [Mass/Vol] 0.47 mg/dL Low 0.66 - 1.25 mg/dL [facility] GFR/1.73 sq M.predicted MDRD (S/P/Bld) [Vol rate/Area] - PINF [facility] Comment on above: Calculation based on the Chronic Kidney Disease Epidemiology Collaboration (CKD-EPI) equation refit without adjustment for race Glucose [Mass/Vol] 90 mg/dL 70 - 100 mg/dL [facility] Interpretation and review of laboratory results Abnormal [facility] Potassium [Moles/Vol] 2.7 mmol/L Low 3.5 - 5.1 mmol/L [facility] Protein [Mass/Vol] 5.1 g/dL Low 6.3 - 8.2 g/dL [facility] Sodium [Moles/Vol] 132 mmol/L Low 135 - 145 mmol/L [facility] Urea nitrogen [Mass/Vol] 7 mg/dL Low 9 - 20 mg/dL [facility] Ferritinon 10-23-2023 Ferritin [Mass/Vol] 1190 ng/mL High 18 - 464 ng/mL [facility] Ferritin [Mass/Vol]on 2023 Interpretation and review of laboratory results Abnormal [facility] Folateon 10-23-2023 Folate [Mass/Vol] 15.8 ng/mL 2.9 - PINF ng/mL [facility] Folate [Mass/Vol]on 10-23-19 Interpretation and review of laboratory results Normal [facility] Haptoglobinon 10-23-2023 Haptoglobin [Mass/Vol] 161.5 mg/dL 30.0 - 200.0 mg/dL [facility] Interpretation and review of laboratory results Normal [facility] Iron and Iron binding capaci ty panelon 10-23-2023 Interpretation and review of laboratory results Abnormal [facility] Iron [Mass/Vol] 62 ug/dL 49 - 181 ug/dL [facility] Iron binding capacity [Mass/Vol] 201 ug/dL Low 261 - 497 ug/dL [facility] Iron saturation [Mass fraction] 31 % 15 - 50 % [facility] LDH Lactate to pyruvate reac tion [Catalytic activity/Vol]on 10-23-2023 Interpretation and review of laboratory results Normal [facility] Lactate dehydrogenaseon LDH Lactate to pyruvate reaction [Catalytic activity/Vol] 231 U/L 120 - 246 U/L [facility] Lipaseon 10-23-2023 Lipase [Catalytic activity/Vol] 446 U/L High 23 - 300 U/L [facility] Lipase [Catalytic activity/V ol]on 10-23-2023 Interpretation and review of laboratory results Abnormal [facility] Magnesiumon 10-23-2023 Magnesium [Mass/Vol] 0.8 mg/dL Critically low 1.6 - 2.3 mg/dL [facility] Magnesium [Mass/Vol]on 10-23 Interpretation and review of laboratory results Abnormal [facility] No Panel Informationon 10-23 [facility] Vitamin B12on 10-23-2023 Cobalamin (Vitamin B12) [Mass/Vol] 850 pg/mL 239 - 931 pg/mL [facility] CBC panel Auto (Bld)Ordered By: Sandy Nance on 10-22-2023 Erythrocyte distribution width (RBC) [Ratio] 13.2 % 11.5 - 14.5 % [facility] Hematocrit (Bld) [Volume fraction] 27.3 % Low 40.0 - 52.0 % [facility] Hemoglobin (Bld) [Mass/Vol] 9.1 g/dL Low 13.0 - 18.0 g/dL [facility] Interpretation and review of laboratory results Abnormal [facility] MCH (RBC) [Entitic mass] 33.6 pg 26.0 - 34.0 pg [facility] MCHC (RBC) [Mass/Vol] 33.4 % 32.0 - 36.0 % [facility] MCV (RBC) [Entitic vol] 100.6 fL High 80.0 - 98.0 fL [facility] Platelet mean volume (Bld) [Entitic vol] 7.8 fL 7.4 - 12.4 fL [facility] Platelets (Bld) [#/Vol] 36 10*3/uL Low 140 - 440 10*3/uL [facility] RBC (Bld) [#/Vol] 2.71 10*6/uL Low 4.40 - 5.9 0 10*6/uL [facility] WBC (Bld) [#/Vol] 2.0 10*3/uL Low 3.6 - 10.7 10*3/uL [facility] Comprehensive metabolic 1998 panelon 10-22-2023 Albumin [Mass/Vol] 3.8 g/dL 3.5 - 5.0 g/dL [facility] ALP [Catalytic activity/Vol] 84 U/L 38 - 126 U/L [facility] ALT [Catalytic activity/Vol] 63 U/L High 0 - 49 U/L [facility] Anion gap [Moles/Vol] 11 mmol/L 3 - 13 mmol/L [facility] AST [Catalytic activity/Vol] 153 U/L High 15 - 46 U/L [facility] Bilirubin [Mass/Vol] 3.1 mg/dL High 0.2 - 1 .3 mg/dL [facility] Calcium [Mass/Vol] 8.1 mg/dL Low 8.4 - 10. 4 mg/dL [facility] Chloride [Moles/Vol] 95 mmol/L Low 98 - 10 7 mmol/L [facility] CO2 [Moles/Vol] 23 mmol/L 22 - 30 mmol/L [facility] Creatinine [Mass/Vol] 0.59 mg/dL Low 0.66 - 1.25 mg/dL [facility] GFR/1.73 sq M.predicted MDRD (S/P/Bld) [Vol rate/Area] - PINF [facility] Comment on above: Calculation based on the Chronic Kidney Disease Epidemiology Collaboration (CKD-EPI) equation refit without adjustment for race Glucose [Mass/Vol] 121 mg/dL High 70 - 100 mg/dL [facility] Interpretation and review of laboratory results Abnormal [facility] Potassium [Moles/Vol] 3.2 mmol/L Low 3.5 - 5.1 mmol/L [facility] Protein [Mass/Vol] 7.0 g/dL 6.3 - 8.2 g/dL [facility] Sodium [Moles/Vol] 129 mmol/L Low 135 - 145 mmol/L [facility] Urea nitrogen [Mass/Vol] 5 mg/dL Low 9 - 20 mg/dL [facility] Iron and Iron binding capaci ty panelon 10-22-2023 Interpretation and review of laboratory results Abnormal [facility] Iron [Mass/Vol] 62 ug/dL 49 - 181 ug/dL [facility] Iron binding capacity [Mass/Vol] 202 ug/dL Low 261 - 497 ug/dL [facility] Iron saturation [Mass fraction] 31 % 15 - 50 % [facility] Specimen slightly hemolyzed, interpret results with caution [facility] CBC W Auto Differential pane l (Bld)Ordered By: Philip Medrano on 10-21-2023 Erythrocyte distribution width (RBC) [Ratio] 13.8 % 11.5 - 14.5 % [facility] Hematocrit (Bld) [Volume fraction] 34.9 % Low 40.0 - 52.0 % [facility] Hemoglobin (Bld) [Mass/Vol] 12.0 g/dL Low 13.0 - 18.0 g/dL [facility] Interpretation and review of laboratory results Abnormal [facility] MCH (RBC) [Entitic mass] 33.9 pg 26.0 - 34.0 pg [facility] MCHC (RBC) [Mass/Vol] 34.3 % 32.0 - 36.0 % [facility] MCV (RBC) [Entitic vol] 99.1 fL High 80.0 - 98.0 fL [facility] Nucleated RBC/100 WBC (Bld) [Ratio] 0.1 % [facility] Platelet mean volume (Bld) [Entitic vol] 6.6 fL Low 7.4 - 12.4 fL [facility] Platelets (Bld) [#/Vol] 51 10*3/uL Low 140 - 440 10*3/uL [facility] RBC (Bld) [#/Vol] 3.52 10*6/uL Low 4.40 - 5.9 0 10*6/uL [facility] WBC (Bld) [#/Vol] 4.6 10*3/uL 3.6 - 10.7 10*3/uL [facility] Lipaseon 10-21-2023 Lipase [Catalytic activity/Vol] 483 U/L High 23 - 300 U/L [facility] Lipase [Catalytic activity/V ol]on 10-21-2023 Interpretation and review of laboratory results Abnormal [facility] Manual differential performe d Ql (Bld)on 10-21-2023 Basophils (Bld) [#/Vol] 0.0 10*3/uL 0.0 - 0.2 10*3/uL [facility] Basophils Manual 1 [facility] Basophils/100 WBC (Bld) 1 % 0 - 2 % [facility] Cells Counted Total (Bld) [#] 100 {cells} [facility] Differential Method Automated differenti al reported after manual slide review [facility] Eosinophils (Bld) [#/Vol] 0.0 10*3/uL 0.0 - 0.5 10*3/uL [facility] Eosinophils Manual 1 0 - 1 [facility] Eosinophils/100 WBC (Bld) 1 % 1 - 6 % [facility] Leukocyte morphology finding Nom (Bld) Normal [facility] Lymphocytes (Bld) [#/Vol] 1.2 10*3/uL 1.0 - 4.3 10*3/uL [facility] Lymphocytes Manual 25 [facility] Lymphocytes/100 WBC (Bld) 25 % 20 - 40 % [facility] Monocytes (Bld) [#/Vol] 0.4 10*3/uL 0.0 - 0.8 10*3/uL [facility] Monocytes Manual 8 [facility] Monocytes/100 WBC (Bld) 8 % 2 - 10 % [facility] Neutrophils (Bld) [#/Vol] 3.0 10*3/uL 1.8 - 7.0 10*3/uL [facility] Neutrophils Manual 65 [facility] Platelet morphology finding Nom (Bld) Normal [facility] RBC morphology finding Nom (Bld) Normal [facility] Segmented neutrophils/100 WBC (Bld) 65 % 40 - 80 % [facility] WBC corrected for nucl RBC (Bld) [#/Vol] 4.6 10*3/uL 3.6 - 10.7 10*3/uL [facility] No Panel InformationOrdered By: Philip Medrano on 10-21-2023 [facility] Basic metabolic 1998 panelon 10-20-2023 Anion gap [Moles/Vol] 19 mmol/L High 3 - 13 mmol/L [facility] Calcium [Mass/Vol] 9.3 mg/dL 8.4 - 10. 4 mg/dL [facility] Chloride [Moles/Vol] 94 mmol/L Low 98 - 10 7 mmol/L [facility] CO2 [Moles/Vol] 19 mmol/L Low 22 - 30 mmol/L [facility] Creatinine [Mass/Vol] 0.71 mg/dL 0.66 - 1.25 mg/dL [facility] GFR/1.73 sq M.predicted MDRD (S/P/Bld) [Vol rate/Area] - PINF [facility] Comment on above: Calculation based on the Chronic Kidney Disease Epidemiology Collaboration (CKD-EPI) equation refit without adjustment for race Glucose [Mass/Vol] 92 mg/dL 70 - 100 mg/dL [facility] Potassium [Moles/Vol] 4.3 mmol/L 3.5 - 5.1 mmol/L [facility] Sodium [Moles/Vol] 133 mmol/L Low 135 - 145 mmol/L [facility] Urea nitrogen [Mass/Vol] 12 mg/dL 9 - 20 mg/dL [facility] CBC W Auto Differential pane l (Bld)Ordered By: Alen Beavers on 10-20-2023 Basophils (Bld) [#/Vol] 0.0 10*3/uL 0.0 - 0.2 10*3/uL [facility] Basophils/100 WBC (Bld) 0.9 % 0.0 - 2.0 % [facility] Eosinophils (Bld) [#/Vol] 0.0 10*3/uL 0.0 - 0.5 10*3/uL [facility] Eosinophils/100 WBC (Bld) 0.6 % Low 1.0 - 6.0 % [facility] Erythrocyte distribution width (RBC) [Ratio] 13.7 % 11.5 - 14.5 % [facility] Hematocrit (Bld) [Volume fraction] 38.3 % Low 40.0 - 52.0 % [facility] Hemoglobin (Bld) [Mass/Vol] 13.1 g/dL 13.0 - 18.0 g/dL [facility] Interpretation and review of laboratory results Abnormal [facility] Lymphocytes (Bld) [#/Vol] 1.7 10*3/uL 1.0 - 4.3 10*3/uL [facility] Lymphocytes/100 WBC (Bld) 32.5 % 20.0 - 40.0 % [facility] MCH (RBC) [Entitic mass] 33.5 pg 26.0 - 34.0 pg [facility] MCHC (RBC) [Mass/Vol] 34.1 % 32.0 - 36.0 % [facility] MCV (RBC) [Entitic vol] 98.2 fL High 80.0 - 98.0 fL [facility] Monocytes (Bld) [#/Vol] 0.4 10*3/uL 0.0 - 0.8 10*3/uL [facility] Monocytes/100 WBC (Bld) 6.8 % 2.0 - 10.0 % [facility] Neutrophils (Bld) [#/Vol] 3.1 10*3/uL 1.8 - 7.0 10*3/uL [facility] Neutrophils/100 WBC (Bld) 59.2 % 40.0 - 80.0 % [facility] Nucleated RBC/100 WBC (Bld) [Ratio] 0.2 % [facility] Platelet mean volume (Bld) [Entitic vol] 6.9 fL Low 7.4 - 12.4 fL [facility] Platelets (Bld) [#/Vol] 76 10*3/uL Low 140 - 440 10*3/uL [facility] RBC (Bld) [#/Vol] 3.90 10*6/uL Low 4.40 - 5.9 0 10*6/uL [facility] WBC (Bld) [#/Vol] 5.2 10*3/uL 3.6 - 10.7 10*3/uL [facility] COVID-19, Flu A/B, and RSV [facility] 10-20-2023 FLUAV RNA SHANE+probe Ql (Resp) Not detected Not Detected [facility] FLUBV RNA SHANE+probe Ql (Resp) Not detected Not Detected [facility] Interpretation and review of laboratory results Normal [facility] RSV RNA SHANE+probe Ql (Resp) Not detected Not Detected [facility] SARS-CoV-2 (COVID-19) RNA SHANE+probe Ql (Resp) Not detected Not Detected [facility] SARS-CoV-2 (COVID-19) RNA SHANE+probe Ql (Unsp spec) Methodology: real-time, RT-PCR The SARS-CoV-2, Flu A/B, and RSV Combo assay is intended for in vitro diagnostic use under the FDA Emergency Use Authorization (EUA). This test has not been FDA cleared or approved. In compliance with this authorization, please visit www.fda.gov/media/311566/ download or www.fda.gov/media/152261/ download to access the applicable information sheets. [facility] Comprehensive metabolic 1998 panelon 10-20-2023 Albumin [Mass/Vol] 3.7 g/dL 3.5 - 5.0 g/dL [facility] ALP [Catalytic activity/Vol] 80 U/L 38 - 126 U/L [facility] ALT [Catalytic activity/Vol] 71 U/L High 0 - 49 U/L [facility] Anion gap [Moles/Vol] 16 mmol/L High 3 - 13 mmol/L [facility] AST [Catalytic activity/Vol] 207 U/L High 15 - 46 U/L [facility] Bilirubin [Mass/Vol] 1.2 mg/dL 0.2 - 1 .3 mg/dL [facility] Calcium [Mass/Vol] 8.4 mg/dL 8.4 - 10. 4 mg/dL [facility] Chloride [Moles/Vol] 98 mmol/L 98 - 10 7 mmol/L [facility] CO2 [Moles/Vol] 20 mmol/L Low 22 - 30 mmol/L [facility] Creatinine [Mass/Vol] 0.74 mg/dL 0.66 - 1.25 mg/dL [facility] GFR/1.73 sq M.predicted MDRD (S/P/Bld) [Vol rate/Area] - PINF [facility] Comment on above: Calculation based on the Chronic Kidney Disease Epidemiology Collaboration (CKD-EPI) equation refit without adjustment for race Glucose [Mass/Vol] 70 mg/dL 70 - 100 mg/dL [facility] Potassium [Moles/Vol] 3.6 mmol/L 3.5 - 5.1 mmol/L [facility] Protein [Mass/Vol] 6.8 g/dL 6.3 - 8.2 g/dL [facility] Sodium [Moles/Vol] 133 mmol/L Low 135 - 145 mmol/L [facility] Urea nitrogen [Mass/Vol] 10 mg/dL 9 - 20 mg/dL [facility] Drug screen panel, emergency Ordered By: Hafsa Purcell on 10-20-2023 Amphetamines Screen method >1000 ng/mL Ql (U) Negative [facility] Barbiturates Screen method >200 ng/mL Ql (U) Negative [facility] Benzodiazepines Ql (U) Negative [facility] COCAINE METAB. SCREEN Negative [facility] Methadone Screen Ql (U) Negative [facility] Opiates Screen Ql (U) Negative [facility] oxyCODONE Ql (U) Negative [facility] Phencyclidine Ql (U) Negative [facility] The expected value f or [...] is needed, request confirmation under separate order. [facility] ECG 12 leadon 10-20-2023 Heart rate 99 /min bpm [facility] P [place] 0 degrees [facility] [place] Interval 127 ms [facility] QRS [place] -57 degrees [facility] QRSD Interval 148 ms [facility] QT Interval 392 ms [facility] QTC Interval 503 ms [facility] T Wave [place] 6 degrees [facility] Sinus rhythm RBBB and LAFB No significant changes compared to previous Electronically Signed On 10-20-2023 18:25:24 EST by Khurram Bob CV Khurram Sinha MD - 10/20/2023 IMPRESSION: Sinus rhythm RBBB and LAFB No significant changes compared to previous Electronically Signed On 10-20-2023 18:25:24 EST by Khurram Bob [facility] Ethanol (Bld) [Mass/Vol]Orde red By: Lorin Carmona on 10-20-2023 Ethanol [Mass/Vol] 0.390 g/dL Critically high 0.000 - 0.010 g/dL [facility] Interpretation and review of laboratory results Abnormal [facility] Hepatic function 2000 panelo n 10-20-2023 Albumin [Mass/Vol] 4.6 g/dL 3.5 - 5.0 g/dL [facility] ALP [Catalytic activity/Vol] 105 U/L 38 - 126 U/L [facility] ALT [Catalytic activity/Vol] 85 U/L High 0 - 49 U/L [facility] AST [Catalytic activity/Vol] 250 U/L High 15 - 46 U/L [facility] Bilirubin [Mass/Vol] 1.4 mg/dL High 0.2 - 1 .3 mg/dL [facility] Bilirubin.conjugated [Mass/Vol] 0.0 mg/dL 0.0 - 0.3 mg/dL [facility] Protein [Mass/Vol] 8.2 g/dL 6.3 - 8.2 g/dL [facility] Lipaseon 10-20-2023 Lipase [Catalytic activity/Vol] 537 U/L High 23 - 300 U/L [facility] Lipase [Catalytic activity/Vol] 615 U/L High 23 - 300 U/L [facility] No Panel Informationon 10-20 Interpretation and review of laboratory results Abnormal [facility] Interpretation and review of laboratory results Abnormal [facility] Troponin Ion 10-20-2023 Troponin I.cardiac [Mass/Vol] ng/mL [facility] 0.034 ng/mL [facility] Troponin I.cardiac [Mass/Vol ]on 10-20-2023 Interpretation and review of laboratory results Normal [facility] Patients with high l evels of Biotin oral intake (ie >5 mg/day) may have falsely decreased Troponin levels. [facility] Interpretation and review of laboratory results Normal [facility] Patients with high l evels of Biotin oral intake (ie >5 mg/day) may have falsely decreased Troponin levels. [facility] Troponin, with Serial Reflex on 10-20-2023 Troponin I.cardiac [Mass/Vol] ng/mL NINF - 0.034 ng/mL [facility] Urinalysis complete panel (U )on 10-20-2023 Bilirubin Ql (U) Negative Negative mg/dL [facility] Clarity (U) Clear Clear [facility] Color (U) Light Yellow Lt. Yellow [facility] Glucose Ql (U) Normal Normal (<70) mg/dL [facility] Hemoglobin Ql (U) Negative Negative mg/dL [facility] Interpretation and review of laboratory results Normal [facility] Ketones (U) [Mass/Vol] Negative Negat zenia mg/dL [facility] Leukocyte esterase Test strip Ql (U) Negative Negative Emma/uL [facility] Nitrite Ql (U) Negative Negative [facility] pH (U) 5.0 [pH] 5.0 - 8.0 pH [facility] Protein (U) [Mass/Vol] Negative Negat zenia mg/dL [facility] Specific gravity (U) [Rel density] 1.006 1.005 - 1.030 [facility] Urobilinogen (U) [Mass/Vol] Normal Normal (0-1) mg/dL [facility] XR Chest Single viewon 10-20 FINDINGS AND IMPRESS ION: SUPPORT DEVICES: None OSSEOUS STRUCTURES: Unremarkable. HEART AND MEDIASTINUM: The cardiomediastinal silhouette appears unchanged from the prior exam. LUNGS AND PLEURA: The lungs are clear. No sizable pleural effusion. Report Dictated on Electronically Signed By: Richie Morrison MD Electronically Signed Date/Time: 10/20/2023 5:24 PM [facility] Patient Name: WOODY NI : 1960 Exam Date/Time: 10/20/2023 17:10 Procedure: XR CHEST 1 VIEW Ordering Provider: BOB KEVIN Reason For Exam: ABDOMINAL PAIN CHEST CLINICAL INDICATION: Abdominal pain TECHNIQUE: AP portable chest COMPARISON: 06/25/2023 [facility] Richie Morrison MD - 10/20/2023 Patient [...] Electronically Signed Date/Time: 10/20/2023 5:24 PM EST [facility] Radiology Study observation (narrative) [facility] XR Chest Single viewOrdered By: Richie Morrison on 10-20-2023 [facility] Work Phone: Basic metabolic 1998 panelon 07-05-2023 Anion gap [Moles/Vol] 5 mmol/L 3 - 13 mmol/L [facility] Calcium [Mass/Vol] 9.3 mg/dL 8.4 - 10. 4 mg/dL [facility] Chloride [Moles/Vol] 100 mmol/L 98 - 10 7 mmol/L [facility] CO2 [Moles/Vol] 25 mmol/L 22 - 30 mmol/L [facility] Creatinine [Mass/Vol] 0.87 mg/dL 0.66 - 1.25 mg/dL [facility] GFR/1.73 sq M.predicted MDRD (S/P/Bld) [Vol rate/Area] - PINF [facility] Comment on above: Calculation based on the Chronic Kidney Disease Epidemiology Collaboration (CKD-EPI) equation refit without adjustment for race Glucose [Mass/Vol] 88 mg/dL 70 - 100 mg/dL [facility] Interpretation and review of laboratory results Abnormal [facility] Potassium [Moles/Vol] 4.4 mmol/L 3.5 - 5.1 mmol/L [facility] Sodium [Moles/Vol] 130 mmol/L Low 135 - 145 mmol/L [facility] Urea nitrogen [Mass/Vol] 11 mg/dL 9 - 20 mg/dL [facility] CBC panel Auto (Bld)Ordered By: Daniel Allen on 07-05-2023 Erythrocyte distribution width (RBC) [Ratio] 14.8 % High 11.5 - 14.5 % [facility] Hematocrit (Bld) [Volume fraction] 29.4 % Low 40.0 - 52.0 % [facility] Hemoglobin (Bld) [Mass/Vol] 10.1 g/dL Low 13.0 - 18.0 g/dL [facility] Interpretation and review of laboratory results Abnormal [facility] MCH (RBC) [Entitic mass] 33.5 pg 26.0 - 34.0 pg [facility] MCHC (RBC) [Mass/Vol] 34.3 % 32.0 - 36.0 % [facility] MCV (RBC) [Entitic vol] 97.8 fL 80.0 - 98.0 fL [facility] Platelet mean volume (Bld) [Entitic vol] 7.4 fL 7.4 - 12.4 fL [facility] Platelets (Bld) [#/Vol] 219 10*3/uL 140 - 440 10*3/uL [facility] RBC (Bld) [#/Vol] 3.01 10*6/uL Low 4.40 - 5.9 0 10*6/uL [facility] WBC (Bld) [#/Vol] 4.8 10*3/uL 3.6 - 10.7 10*3/uL [facility] Basic metabolic 1998 panelon 07-04-2023 Anion gap [Moles/Vol] 7 mmol/L 3 - 13 mmol/L [facility] Calcium [Mass/Vol] 9.5 mg/dL 8.4 - 10. 4 mg/dL [facility] Chloride [Moles/Vol] 100 mmol/L 98 - 10 7 mmol/L [facility] CO2 [Moles/Vol] 25 mmol/L 22 - 30 mmol/L [facility] Creatinine [Mass/Vol] 0.97 mg/dL 0.66 - 1.25 mg/dL [facility] GFR/1.73 sq M.predicted MDRD (S/P/Bld) [Vol rate/Area] 87.7 mL/min/{1.73_m2} - PINF [facility] Comment on above: Calculation based on the Chronic Kidney Disease Epidemiology Collaboration (CKD-EPI) equation refit without adjustment for race Glucose [Mass/Vol] 107 mg/dL High 70 - 100 mg/dL [facility] Interpretation and review of laboratory results Abnormal [facility] Potassium [Moles/Vol] 4.8 mmol/L 3.5 - 5.1 mmol/L [facility] Sodium [Moles/Vol] 132 mmol/L Low 135 - 145 mmol/L [facility] Urea nitrogen [Mass/Vol] 12 mg/dL 9 - 20 mg/dL [facility] Anion gap [Moles/Vol] 8 mmol/L 3 - 13 mmol/L [facility] Calcium [Mass/Vol] 8.7 mg/dL 8.4 - 10. 4 mg/dL [facility] Chloride [Moles/Vol] 102 mmol/L 98 - 10 7 mmol/L [facility] CO2 [Moles/Vol] 20 mmol/L Low 22 - 30 mmol/L [facility] Creatinine [Mass/Vol] 0.90 mg/dL 0.66 - 1.25 mg/dL [facility] GFR/1.73 sq M.predicted MDRD (S/P/Bld) [Vol rate/Area] - [facility] Comment on above: Calculation based on the Chronic Kidney Disease Epidemiology Collaboration (CKD-EPI) equation refit without adjustment for race Glucose [Mass/Vol] 140 mg/dL High 70 - 100 mg/dL [facility] Interpretation and review of laboratory results Abnormal [facility] Potassium [Moles/Vol] 4.2 mmol/L 3.5 - 5.1 mmol/L [facility] Sodium [Moles/Vol] 130 mmol/L Low 135 - 145 mmol/L [facility] Urea nitrogen [Mass/Vol] 8 mg/dL Low 9 - 20 mg/dL [facility] Anion gap [Moles/Vol] 3 mmol/L 3 - 13 mmol/L [facility] Calcium [Mass/Vol] 8.9 mg/dL 8.4 - 10. 4 mg/dL [facility] Chloride [Moles/Vol] 103 mmol/L 98 - 10 7 mmol/L [facility] CO2 [Moles/Vol] 24 mmol/L 22 - 30 mmol/L [facility] Creatinine [Mass/Vol] 0.85 mg/dL 0.66 - 1.25 mg/dL [facility] GFR/1.73 sq M.predicted MDRD (S/P/Bld) [Vol rate/Area] - [facility] Comment on above: Calculation based on the Chronic Kidney Disease Epidemiology Collaboration (CKD-EPI) equation refit without adjustment for race Glucose [Mass/Vol] 98 mg/dL 70 - 100 mg/dL [facility] Interpretation and review of laboratory results Abnormal [facility] Potassium [Moles/Vol] 4.5 mmol/L 3.5 - 5.1 mmol/L [facility] Sodium [Moles/Vol] 130 mmol/L Low 135 - 145 mmol/L [facility] Urea nitrogen [Mass/Vol] 10 mg/dL 9 - 20 mg/dL [facility] CBC panel Auto (Bld)on 07-04 Erythrocyte distribution width (RBC) [Ratio] 14.9 % High 11.5 - 14.5 % [facility] Hematocrit (Bld) [Volume fraction] 28.1 % Low 40.0 - 52.0 % [facility] Hemoglobin (Bld) [Mass/Vol] 9.5 g/dL Low 13.0 - 18.0 g/dL [facility] Interpretation and review of laboratory results Abnormal [facility] MCH (RBC) [Entitic mass] 33.2 pg 26.0 - 34.0 pg [facility] MCHC (RBC) [Mass/Vol] 33.9 % 32.0 - 36.0 % [facility] MCV (RBC) [Entitic vol] 98.0 fL 80.0 - 98.0 fL [facility] Platelet mean volume (Bld) [Entitic vol] 7.5 fL 7.4 - 12.4 fL [facility] Platelets (Bld) [#/Vol] 190 10*3/uL 140 - 440 10*3/uL [facility] RBC (Bld) [#/Vol] 2.86 10*6/uL Low 4.40 - 5.9 0 10*6/uL [facility] WBC (Bld) [#/Vol] 3.2 10*3/uL Low 3.6 - 10.7 10*3/uL [facility] Basic metabolic 1998 panelon 07-03-2023 Anion gap [Moles/Vol] 6 mmol/L 3 - 13 mmol/L [facility] Calcium [Mass/Vol] 9.1 mg/dL 8.4 - 10. 4 mg/dL [facility] Chloride [Moles/Vol] 103 mmol/L 98 - 10 7 mmol/L [facility] CO2 [Moles/Vol] 23 mmol/L 22 - 30 mmol/L [facility] Creatinine [Mass/Vol] 0.82 mg/dL 0.66 - 1.25 mg/dL [facility] GFR/1.73 sq M.predicted MDRD (S/P/Bld) [Vol rate/Area] - PINF [facility] Comment on above: Calculation based on the Chronic Kidney Disease Epidemiology Collaboration (CKD-EPI) equation refit without adjustment for race Glucose [Mass/Vol] 112 mg/dL High 70 - 100 mg/dL [facility] Interpretation and review of laboratory results Abnormal [facility] Potassium [Moles/Vol] 4.5 mmol/L 3.5 - 5.1 mmol/L [facility] Sodium [Moles/Vol] 131 mmol/L Low 135 - 145 mmol/L [facility] Urea nitrogen [Mass/Vol] 9 mg/dL 9 - 20 mg/dL [facility] Anion gap [Moles/Vol] 6 mmol/L 3 - 13 mmol/L [facility] Calcium [Mass/Vol] 9.4 mg/dL 8.4 - 10. 4 mg/dL [facility] Chloride [Moles/Vol] 97 mmol/L Low 98 - 10 7 mmol/L [facility] CO2 [Moles/Vol] 24 mmol/L 22 - 30 mmol/L [facility] Creatinine [Mass/Vol] 0.85 mg/dL 0.66 - 1.25 mg/dL [facility] GFR/1.73 sq M.predicted MDRD (S/P/Bld) [Vol rate/Area] - PINF [facility] Comment on above: Calculation based on the Chronic Kidney Disease Epidemiology Collaboration (CKD-EPI) equation refit without adjustment for race Glucose [Mass/Vol] 148 mg/dL High 70 - 100 mg/dL [facility] Interpretation and review of laboratory results Abnormal [facility] Potassium [Moles/Vol] 4.5 mmol/L 3.5 - 5.1 mmol/L [facility] Sodium [Moles/Vol] 127 mmol/L Low 135 - 145 mmol/L [facility] Urea nitrogen [Mass/Vol] 8 mg/dL Low 9 - 20 mg/dL [facility] Anion gap [Moles/Vol] 7 mmol/L 3 - 13 mmol/L [facility] Calcium [Mass/Vol] 9.2 mg/dL 8.4 - 10. 4 mg/dL [facility] Chloride [Moles/Vol] 98 mmol/L 98 - 10 7 mmol/L [facility] CO2 [Moles/Vol] 23 mmol/L 22 - 30 mmol/L [facility] Creatinine [Mass/Vol] 0.85 mg/dL 0.66 - 1.25 mg/dL [facility] GFR/1.73 sq M.predicted MDRD (S/P/Bld) [Vol rate/Area] - PINF [facility] Comment on above: Calculation based on the Chronic Kidney Disease Epidemiology Collaboration (CKD-EPI) equation refit without adjustment for race Glucose [Mass/Vol] 137 mg/dL High 70 - 100 mg/dL [facility] Interpretation and review of laboratory results Abnormal [facility] Potassium [Moles/Vol] 4.4 mmol/L 3.5 - 5.1 mmol/L [facility] Sodium [Moles/Vol] 127 mmol/L Low 135 - 145 mmol/L [facility] Urea nitrogen [Mass/Vol] 6 mg/dL Low 9 - 20 mg/dL [facility] Anion gap [Moles/Vol] 6 mmol/L 3 - 13 mmol/L [facility] Calcium [Mass/Vol] 9.0 mg/dL 8.4 - 10. 4 mg/dL [facility] Chloride [Moles/Vol] 98 mmol/L 98 - 10 7 mmol/L [facility] CO2 [Moles/Vol] 22 mmol/L 22 - 30 mmol/L [facility] Creatinine [Mass/Vol] 0.82 mg/dL 0.66 - 1.25 mg/dL [facility] GFR/1.73 sq M.predicted MDRD (S/P/Bld) [Vol rate/Area] - PINF [facility] Comment on above: Calculation based on the Chronic Kidney Disease Epidemiology Collaboration (CKD-EPI) equation refit without adjustment for race Glucose [Mass/Vol] 122 mg/dL High 70 - 100 mg/dL [facility] Interpretation and review of laboratory results Abnormal [facility] Potassium [Moles/Vol] 3.9 mmol/L 3.5 - 5.1 mmol/L [facility] Sodium [Moles/Vol] 126 mmol/L Low 135 - 145 mmol/L [facility] Urea nitrogen [Mass/Vol] 7 mg/dL Low 9 - 20 mg/dL [facility] Basic metabolic 1998 panelon 07-02-2023 Anion gap [Moles/Vol] 6 mmol/L 3 - 13 mmol/L [facility] Calcium [Mass/Vol] 8.9 mg/dL 8.4 - 10. 4 mg/dL [facility] Chloride [Moles/Vol] 97 mmol/L Low 98 - 10 7 mmol/L [facility] CO2 [Moles/Vol] 23 mmol/L 22 - 30 mmol/L [facility] Creatinine [Mass/Vol] 0.80 mg/dL 0.66 - 1.25 mg/dL [facility] GFR/1.73 sq M.predicted MDRD (S/P/Bld) [Vol rate/Area] - [facility] Comment on above: Calculation based on the Chronic Kidney Disease Epidemiology Collaboration (CKD-EPI) equation refit without adjustment for race Glucose [Mass/Vol] 138 mg/dL High 70 - 100 mg/dL [facility] Interpretation and review of laboratory results Abnormal [facility] Potassium [Moles/Vol] 3.9 mmol/L 3.5 - 5.1 mmol/L [facility] Sodium [Moles/Vol] 127 mmol/L Low 135 - 145 mmol/L [facility] Urea nitrogen [Mass/Vol] 8 mg/dL Low 9 - 20 mg/dL [facility] Anion gap [Moles/Vol] 5 mmol/L 3 - 13 mmol/L [facility] Calcium [Mass/Vol] 8.5 mg/dL 8.4 - 10. 4 mg/dL [facility] Chloride [Moles/Vol] 101 mmol/L 98 - 10 7 mmol/L [facility] CO2 [Moles/Vol] 23 mmol/L 22 - 30 mmol/L [facility] Creatinine [Mass/Vol] 0.92 mg/dL 0.66 - 1.25 mg/dL [facility] GFR/1.73 sq M.predicted MDRD (S/P/Bld) [Vol rate/Area] - [facility] Comment on above: Calculation based on the Chronic Kidney Disease Epidemiology Collaboration (CKD-EPI) equation refit without adjustment for race Glucose [Mass/Vol] 102 mg/dL High 70 - 100 mg/dL [facility] Interpretation and review of laboratory results Abnormal [facility] Potassium [Moles/Vol] 3.6 mmol/L 3.5 - 5.1 mmol/L [facility] Sodium [Moles/Vol] 130 mmol/L Low 135 - 145 mmol/L [facility] Urea nitrogen [Mass/Vol] 14 mg/dL 9 - 20 mg/dL [facility] CBC panel Auto (Bld)Ordered By: Sandy Nance on 07-02-2023 Erythrocyte distribution width (RBC) [Ratio] 15.3 % High 11.5 - 14.5 % [facility] Hematocrit (Bld) [Volume fraction] 29.2 % Low 40.0 - 52.0 % [facility] Hemoglobin (Bld) [Mass/Vol] 10.4 g/dL Low 13.0 - 18.0 g/dL [facility] Interpretation and review of laboratory results Abnormal [facility] MCH (RBC) [Entitic mass] 34.2 pg High 26.0 - 34.0 pg [facility] MCHC (RBC) [Mass/Vol] 35.5 % 32.0 - 36.0 % [facility] MCV (RBC) [Entitic vol] 96.2 fL 80.0 - 98.0 fL [facility] Platelet mean volume (Bld) [Entitic vol] 7.0 fL Low 7.4 - 12.4 fL [facility] Platelets (Bld) [#/Vol] 197 10*3/uL 140 - 440 10*3/uL [facility] RBC (Bld) [#/Vol] 3.03 10*6/uL Low 4.40 - 5.9 0 10*6/uL [facility] WBC (Bld) [#/Vol] 3.3 10*3/uL Low 3.6 - 10.7 10*3/uL [facility] Comprehensive metabolic 1998 panelon 07-02-2023 Albumin [Mass/Vol] 3.7 g/dL 3.5 - 5.0 g/dL [facility] ALP [Catalytic activity/Vol] 87 U/L 38 - 126 U/L [facility] ALT [Catalytic activity/Vol] 28 U/L 0 - 49 U/L [facility] Anion gap [Moles/Vol] 5 mmol/L 3 - 13 mmol/L [facility] AST [Catalytic activity/Vol] 46 U/L 15 - 46 U/L [facility] Bilirubin [Mass/Vol] 0.8 mg/dL 0.2 - 1 .3 mg/dL [facility] Calcium [Mass/Vol] 9.1 mg/dL 8.4 - 10. 4 mg/dL [facility] Chloride [Moles/Vol] 100 mmol/L 98 - 10 7 mmol/L [facility] CO2 [Moles/Vol] 23 mmol/L 22 - 30 mmol/L [facility] Creatinine [Mass/Vol] 0.97 mg/dL 0.66 - 1.25 mg/dL [facility] GFR/1.73 sq M.predicted MDRD (S/P/Bld) [Vol rate/Area] 87.7 mL/min/{1.73_m2} - [facility] Comment on above: Calculation based on the Chronic Kidney Disease Epidemiology Collaboration (CKD-EPI) equation refit without adjustment for race Glucose [Mass/Vol] 133 mg/dL High 70 - 100 mg/dL [facility] Interpretation and review of laboratory results Abnormal [facility] Potassium [Moles/Vol] 3.9 mmol/L 3.5 - 5.1 mmol/L [facility] Protein [Mass/Vol] 6.5 g/dL 6.3 - 8.2 g/dL [facility] Sodium [Moles/Vol] 127 mmol/L Low 135 - 145 mmol/L [facility] Urea nitrogen [Mass/Vol] 13 mg/dL 9 - 20 mg/dL [facility] Basic metabolic 1998 panelon 07-01-2023 Anion gap [Moles/Vol] 6 mmol/L 3 - 13 mmol/L [facility] Calcium [Mass/Vol] 8.6 mg/dL 8.4 - 10. 4 mg/dL [facility] Chloride [Moles/Vol] 99 mmol/L 98 - 10 7 mmol/L [facility] CO2 [Moles/Vol] 22 mmol/L 22 - 30 mmol/L [facility] Creatinine [Mass/Vol] 1.06 mg/dL 0.66 - 1.25 mg/dL [facility] GFR/1.73 sq M.predicted MDRD (S/P/Bld) [Vol rate/Area] 78.9 mL/min/{1.73_m2} - [facility] Comment on above: Calculation based on the Chronic Kidney Disease Epidemiology Collaboration (CKD-EPI) equation refit without adjustment for race Glucose [Mass/Vol] 133 mg/dL High 70 - 100 mg/dL [facility] Interpretation and review of laboratory results Abnormal [facility] Potassium [Moles/Vol] 3.8 mmol/L 3.5 - 5.1 mmol/L [facility] Sodium [Moles/Vol] 128 mmol/L Low 135 - 145 mmol/L [facility] Urea nitrogen [Mass/Vol] 15 mg/dL 9 - 20 mg/dL [facility] Anion gap [Moles/Vol] 8 mmol/L 3 - 13 mmol/L [facility] Calcium [Mass/Vol] 8.7 mg/dL 8.4 - 10. 4 mg/dL [facility] Chloride [Moles/Vol] 99 mmol/L 98 - 10 7 mmol/L [facility] CO2 [Moles/Vol] 21 mmol/L Low 22 - 30 mmol/L [facility] Creatinine [Mass/Vol] 1.08 mg/dL 0.66 - 1.25 mg/dL [facility] GFR/1.73 sq M.predicted MDRD (S/P/Bld) [Vol rate/Area] 77.1 mL/min/{1.73_m2} - [facility] Comment on above: Calculation based on the Chronic Kidney Disease Epidemiology Collaboration (CKD-EPI) equation refit without adjustment for race Glucose [Mass/Vol] 104 mg/dL High 70 - 100 mg/dL [facility] Interpretation and review of laboratory results Abnormal [facility] Potassium [Moles/Vol] 4.1 mmol/L 3.5 - 5.1 mmol/L [facility] Sodium [Moles/Vol] 128 mmol/L Low 135 - 145 mmol/L [facility] Urea nitrogen [Mass/Vol] 14 mg/dL 9 - 20 mg/dL [facility] Anion gap [Moles/Vol] 9 mmol/L 3 - 13 mmol/L [facility] Calcium [Mass/Vol] 8.6 mg/dL 8.4 - 10. 4 mg/dL [facility] Chloride [Moles/Vol] 98 mmol/L 98 - 10 7 mmol/L [facility] CO2 [Moles/Vol] 21 mmol/L Low 22 - 30 mmol/L [facility] Creatinine [Mass/Vol] 1.04 mg/dL 0.66 - 1.25 mg/dL [facility] GFR/1.73 sq M.predicted MDRD (S/P/Bld) [Vol rate/Area] 80.7 mL/min/{1.73_m2} - [facility] Comment on above: Calculation based on the Chronic Kidney Disease Epidemiology Collaboration (CKD-EPI) equation refit without adjustment for race Glucose [Mass/Vol] 78 mg/dL 70 - 100 mg/dL [facility] Interpretation and review of laboratory results Abnormal [facility] Potassium [Moles/Vol] 4.5 mmol/L 3.5 - 5.1 mmol/L [facility] Sodium [Moles/Vol] 128 mmol/L Low 135 - 145 mmol/L [facility] Urea nitrogen [Mass/Vol] 11 mg/dL 9 - 20 mg/dL [facility] CBC W Auto Differential pane l (Bld)Ordered By: Philip Medrano on 07-01-2023 Basophils (Bld) [#/Vol] 0.0 10*3/uL 0.0 - 0.2 10*3/uL [facility] Basophils/100 WBC (Bld) 0.4 % 0.0 - 2.0 % [facility] Eosinophils (Bld) [#/Vol] 0.1 10*3/uL 0.0 - 0.5 10*3/uL [facility] Eosinophils/100 WBC (Bld) 1.1 % 1.0 - 6.0 % [facility] Erythrocyte distribution width (RBC) [Ratio] 15.1 % High 11.5 - 14.5 % [facility] Hematocrit (Bld) [Volume fraction] 34.1 % Low 40.0 - 52.0 % [facility] Hemoglobin (Bld) [Mass/Vol] 12.2 g/dL Low 13.0 - 18.0 g/dL [facility] Interpretation and review of laboratory results Abnormal [facility] Lymphocytes (Bld) [#/Vol] 1.2 10*3/uL 1.0 - 4.3 10*3/uL [facility] Lymphocytes/100 WBC (Bld) 22.5 % 20.0 - 40.0 % [facility] MCH (RBC) [Entitic mass] 33.8 pg 26.0 - 34.0 pg [facility] MCHC (RBC) [Mass/Vol] 35.7 % 32.0 - 36.0 % [facility] MCV (RBC) [Entitic vol] 94.7 fL 80.0 - 98.0 fL [facility] Monocytes (Bld) [#/Vol] 0.8 10*3/uL 0.0 - 0.8 10*3/uL [facility] Monocytes/100 WBC (Bld) 14.8 % High 2.0 - 10.0 % [facility] Neutrophils (Bld) [#/Vol] 3.1 10*3/uL 1.8 - 7.0 10*3/uL [facility] Neutrophils/100 WBC (Bld) 61.2 % 40.0 - 80.0 % [facility] Nucleated RBC/100 WBC (Bld) [Ratio] 0.0 % [facility] Platelet mean volume (Bld) [Entitic vol] 7.2 fL Low 7.4 - 12.4 fL [facility] Platelets (Bld) [#/Vol] 242 10*3/uL 140 - 440 10*3/uL [facility] RBC (Bld) [#/Vol] 3.60 10*6/uL Low 4.40 - 5.9 0 10*6/uL [facility] WBC (Bld) [#/Vol] 5.1 10*3/uL 3.6 - 10.7 10*3/uL [facility] Comprehensive metabolic 1998 panelOrdered By: Montrell Charles on 07-01-2023 Albumin [Mass/Vol] 4.1 g/dL 3.5 - 5.0 g/dL [facility] ALP [Catalytic activity/Vol] 92 U/L 38 - 126 U/L [facility] ALT [Catalytic activity/Vol] 40 U/L 0 - 49 U/L [facility] Anion gap [Moles/Vol] 13 mmol/L 3 - 13 mmol/L [facility] AST [Catalytic activity/Vol] 73 U/L High 15 - 46 U/L [facility] Bilirubin [Mass/Vol] 0.7 mg/dL 0.2 - 1 .3 mg/dL [facility] Calcium [Mass/Vol] 8.9 mg/dL 8.4 - 10. 4 mg/dL [facility] Chloride [Moles/Vol] 95 mmol/L Low 98 - 10 7 mmol/L [facility] CO2 [Moles/Vol] 19 mmol/L Low 22 - 30 mmol/L [facility] Creatinine [Mass/Vol] 1.19 mg/dL 0.66 - 1.25 mg/dL [facility] GFR/1.73 sq M.predicted MDRD (S/P/Bld) [Vol rate/Area] 68.6 mL/min/{1.73_m2} - PINF [facility] Comment on above: Calculation based on the Chronic Kidney Disease Epidemiology Collaboration (CKD-EPI) equation refit without adjustment for race Glucose [Mass/Vol] 75 mg/dL 70 - 100 mg/dL [facility] Interpretation and review of laboratory results Abnormal [facility] Potassium [Moles/Vol] 4.0 mmol/L 3.5 - 5.1 mmol/L [facility] Protein [Mass/Vol] 7.0 g/dL 6.3 - 8.2 g/dL [facility] Sodium [Moles/Vol] 128 mmol/L Low 135 - 145 mmol/L [facility] Urea nitrogen [Mass/Vol] 10 mg/dL 9 - 20 mg/dL [facility] Laboratory - Chemistry and C hemistry - challengeon 07-01-2023 Sodium (24H U) [Mass/Vol] 5 mmol/L Low 30 - 90 mmol/L [facility] No Panel InformationOrdered By: Sergio Chamberlain on 07-01-2023 Interpretation and review of laboratory results Abnormal [facility] OSMOLALITY, URINE 135 Low [facility] No Panel Informationon 07-01 Interpretation and review of laboratory results Abnormal [facility] CBC W Auto Differential pane l (Bld)Ordered By: Maricruz Mesa on 06-30-2023 Basophils (Bld) [#/Vol] 0.0 10*3/uL 0.0 - 0.2 10*3/uL [facility] Basophils/100 WBC (Bld) 0.3 % 0.0 - 2.0 % [facility] Eosinophils (Bld) [#/Vol] 0.1 10*3/uL 0.0 - 0.5 10*3/uL [facility] Eosinophils/100 WBC (Bld) 1.5 % 1.0 - 6.0 % [facility] Erythrocyte distribution width (RBC) [Ratio] 15.2 % High 11.5 - 14.5 % [facility] Hematocrit (Bld) [Volume fraction] 36.9 % Low 40.0 - 52.0 % [facility] Hemoglobin (Bld) [Mass/Vol] 13.0 g/dL 13.0 - 18.0 g/dL [facility] Interpretation and review of laboratory results Abnormal [facility] Lymphocytes (Bld) [#/Vol] 2.1 10*3/uL 1.0 - 4.3 10*3/uL [facility] Lymphocytes/100 WBC (Bld) 31.6 % 20.0 - 40.0 % [facility] MCH (RBC) [Entitic mass] 33.5 pg 26.0 - 34.0 pg [facility] MCHC (RBC) [Mass/Vol] 35.3 % 32.0 - 36.0 % [facility] MCV (RBC) [Entitic vol] 95.0 fL 80.0 - 98.0 fL [facility] Monocytes (Bld) [#/Vol] 0.7 10*3/uL 0.0 - 0.8 10*3/uL [facility] Monocytes/100 WBC (Bld) 10.9 % High 2.0 - 10.0 % [facility] Neutrophils (Bld) [#/Vol] 3.6 10*3/uL 1.8 - 7.0 10*3/uL [facility] Neutrophils/100 WBC (Bld) 55.7 % 40.0 - 80.0 % [facility] Nucleated RBC/100 WBC (Bld) [Ratio] 0.2 % [facility] Platelet mean volume (Bld) [Entitic vol] 6.9 fL Low 7.4 - 12.4 fL [facility] Platelets (Bld) [#/Vol] 256 10*3/uL 140 - 440 10*3/uL [facility] RBC (Bld) [#/Vol] 3.89 10*6/uL Low 4.40 - 5.9 0 10*6/uL [facility] WBC (Bld) [#/Vol] 6.5 10*3/uL 3.6 - 10.7 10*3/uL [facility] CT Cervical spine WO contras ton 06-30-2023 [facility] 1960 [id number] Exam Date/Time: 06/30/2023 17:49 Procedure: CT CERVICAL [...] canal encroachment. Paraspinal soft tissues grossly unremarkable. [facility] Dallas Hanks MD - 06/30/2023 [facility] 1960 [id number] Exam Date/Time: 06/30/2023 17:49 Procedure: CT CERVICAL [...] Electronically Signed Date/Time: 06/30/2023 5:58 PM EDT [facility] CT Head WO contraston 2022 Patient Name: [...] canal encroachment. Paraspinal soft tissues grossly unremarkable. [facility] Dallas Hanks MD - 06/30/2023 [...] Electronically Signed Date/Time: 06/30/2023 5:58 PM EDT [facility] Comprehensive metabolic 1998 panelOrdered By: Hafsa Purcell on 06-30-2023 Albumin [Mass/Vol] 4.8 g/dL 3.5 - 5.0 g/dL [facility] ALP [Catalytic activity/Vol] 102 U/L 38 - 126 U/L [facility] ALT [Catalytic activity/Vol] 45 U/L 0 - 49 U/L [facility] Anion gap [Moles/Vol] 14 mmol/L High 3 - 13 mmol/L [facility] AST [Catalytic activity/Vol] 83 U/L High 15 - 46 U/L [facility] Bilirubin [Mass/Vol] 0.8 mg/dL 0.2 - 1 .3 mg/dL [facility] Calcium [Mass/Vol] 9.2 mg/dL 8.4 - 10. 4 mg/dL [facility] Chloride [Moles/Vol] 86 mmol/L Low 98 - 10 7 mmol/L [facility] CO2 [Moles/Vol] 19 mmol/L Low 22 - 30 mmol/L [facility] Creatinine [Mass/Vol] 1.36 mg/dL High 0.66 - 1.25 mg/dL [facility] GFR/1.73 sq M.predicted MDRD (S/P/Bld) [Vol rate/Area] 58.5 mL/min/{1.73_m2} Low - PINF [facility] Comment on above: Calculation based on the Chronic Kidney Disease Epidemiology Collaboration (CKD-EPI) equation refit without adjustment for race Glucose [Mass/Vol] 82 mg/dL 70 - 100 mg/dL [facility] Interpretation and review of laboratory results Abnormal [facility] Potassium [Moles/Vol] 4.3 mmol/L 3.5 - 5.1 mmol/L [facility] Protein [Mass/Vol] 8.4 g/dL High 6.3 - 8.2 g/dL [facility] Sodium [Moles/Vol] 119 mmol/L Critically low 135 - 1 45 mmol/L [facility] Urea nitrogen [Mass/Vol] 11 mg/dL 9 - 20 mg/dL [facility] Ethanol (Bld) [Mass/Vol]on 0 06-30-2023 Ethanol [Mass/Vol] 0.270 g/dL High 0.000 - 0.010 g/dL [facility] Interpretation and review of laboratory results Abnormal [facility] Laboratory - Drug toxicology on 06-30-2023 Amphetamines Screen method >1000 ng/mL Ql (U) Negative [facility] Barbiturates Screen method >200 ng/mL Ql (U) Positive [facility] Benzodiazepines Ql (U) Negative [facility] Methadone Screen Ql (U) Negative [facility] Opiates Screen Ql (U) Negative [facility] oxyCODONE Ql (U) Negative [facility] Phencyclidine Ql (U) Negative [facility] Laboratory - Microbiology an d Antimicrobial susceptibilityon 06-30-2023 SARS-CoV-2 (COVID-19) Ag IA.rapid Ql (Resp) Negative Negative [facility] Comment on above: A negative result do es not rule out the possibility of SARS-CoV-2 infection. NAAT-based methods should be considered for symptomatic patients presenting greater than seven days after onset of symptoms. Method: Lateral flow immunoassay. Fact sheets for healthcare providers and patients can be found at the following sites: https://www.fda.gov/media/408111/download https://www.fda.gov/media/258027/download No Panel Informationon 06-30 COCAINE METAB. SCREEN Negative [facility] The expected value f or all of [...] is needed, request confirmation under separate order. [facility] 1. No acute intracranial findings. Chronic ischemic and atrophic changes. 2. No acute compression deformity or apparent fracture in the cervical spine. Degenerative spondylosis. Report Dictated on Electronically Signed By: Dallas Hanks MD Electronically Signed Date/Time: 06/30/2023 5:58 PM EDT [facility] Radiology Study observation (narrative) [facility] No Panel InformationOrdered By: Dallas Hanks on 06-30-2023 [facility] Work Phone: SARS-CoV-2 (COVID-19) Ag IA. rapid Ql (Resp)on 06-30-2023 Interpretation and review of laboratory results Normal [facility] CBC panel Auto (Bld)on 04-15 Erythrocyte distribution width (RBC) [Ratio] 14.1 % 11.5 - 14.5 % [facility] Hematocrit (Bld) [Volume fraction] 31.0 % Low 40.0 - 52.0 % [facility] Hemoglobin (Bld) [Mass/Vol] 10.6 g/dL Low 13.0 - 18.0 g/dL [facility] Interpretation and review of laboratory results Abnormal [facility] MCH (RBC) [Entitic mass] 34.2 pg High 26.0 - 34.0 pg [facility] MCHC (RBC) [Mass/Vol] 34.2 % 32.0 - 36.0 % [facility] MCV (RBC) [Entitic vol] 99.9 fL High 80.0 - 98.0 fL [facility] Platelet mean volume (Bld) [Entitic vol] 7.7 fL 7.4 - 12.4 fL [facility] Platelets (Bld) [#/Vol] 185 10*3/uL 140 - 440 10*3/uL [facility] RBC (Bld) [#/Vol] 3.11 10*6/uL Low 4.40 - 5.9 0 10*6/uL [facility] WBC (Bld) [#/Vol] 4.3 10*3/uL 3.6 - 10.7 10*3/uL [facility] Comprehensive metabolic 1998 panelon 04-15-2023 Albumin [Mass/Vol] 3.6 g/dL 3.5 - 5.0 g/dL [facility] ALP [Catalytic activity/Vol] 58 U/L 38 - 126 U/L [facility] ALT [Catalytic activity/Vol] 65 U/L High 0 - 49 U/L [facility] Anion gap [Moles/Vol] 6 mmol/L 3 - 13 mmol/L [facility] AST [Catalytic activity/Vol] 87 U/L High 15 - 46 U/L [facility] Bilirubin [Mass/Vol] 0.4 mg/dL 0.2 - 1 .3 mg/dL [facility] Calcium [Mass/Vol] 8.8 mg/dL 8.4 - 10. 4 mg/dL [facility] Chloride [Moles/Vol] 100 mmol/L 98 - 10 7 mmol/L [facility] CO2 [Moles/Vol] 23 mmol/L 22 - 30 mmol/L [facility] Creatinine [Mass/Vol] 0.77 mg/dL 0.66 - 1.25 mg/dL [facility] GFR/1.73 sq M.predicted MDRD (S/P/Bld) [Vol rate/Area] - PINF [facility] Comment on above: Calculation based on the Chronic Kidney Disease Epidemiology Collaboration (CKD-EPI) equation refit without adjustment for race Glucose [Mass/Vol] 105 mg/dL High 70 - 100 mg/dL [facility] Interpretation and review of laboratory results Abnormal [facility] Potassium [Moles/Vol] 3.9 mmol/L 3.5 - 5.1 mmol/L [facility] Protein [Mass/Vol] 6.4 g/dL 6.3 - 8.2 g/dL [facility] Sodium [Moles/Vol] 129 mmol/L Low 135 - 145 mmol/L [facility] Urea nitrogen [Mass/Vol] 6 mg/dL Low 9 - 20 mg/dL [facility] CBC panel Auto (Bld)on 04-14 Erythrocyte distribution width (RBC) [Ratio] 13.8 % 11.5 - 14.5 % [facility] Hematocrit (Bld) [Volume fraction] 29.8 % Low 40.0 - 52.0 % [facility] Hemoglobin (Bld) [Mass/Vol] 10.3 g/dL Low 13.0 - 18.0 g/dL [facility] Interpretation and review of laboratory results Abnormal [facility] MCH (RBC) [Entitic mass] 34.0 pg 26.0 - 34.0 pg [facility] MCHC (RBC) [Mass/Vol] 34.6 % 32.0 - 36.0 % [facility] MCV (RBC) [Entitic vol] 98.4 fL High 80.0 - 98.0 fL [facility] Platelet mean volume (Bld) [Entitic vol] 7.4 fL 7.4 - 12.4 fL [facility] Platelets (Bld) [#/Vol] 153 10*3/uL 140 - 440 10*3/uL [facility] RBC (Bld) [#/Vol] 3.03 10*6/uL Low 4.40 - 5.9 0 10*6/uL [facility] WBC (Bld) [#/Vol] 3.5 10*3/uL Low 3.6 - 10.7 10*3/uL [facility] Comprehensive metabolic 1998 panelon 04-14-2023 Albumin [Mass/Vol] 3.5 g/dL 3.5 - 5.0 g/dL [facility] ALP [Catalytic activity/Vol] 65 U/L 38 - 126 U/L [facility] ALT [Catalytic activity/Vol] 61 U/L High 0 - 49 U/L [facility] Anion gap [Moles/Vol] 7 mmol/L 3 - 13 mmol/L [facility] AST [Catalytic activity/Vol] 83 U/L High 15 - 46 U/L [facility] Bilirubin [Mass/Vol] 0.5 mg/dL 0.2 - 1 .3 mg/dL [facility] Calcium [Mass/Vol] 8.4 mg/dL 8.4 - 10. 4 mg/dL [facility] Chloride [Moles/Vol] 97 mmol/L Low 98 - 10 7 mmol/L [facility] CO2 [Moles/Vol] 21 mmol/L Low 22 - 30 mmol/L [facility] Creatinine [Mass/Vol] 0.77 mg/dL 0.66 - 1.25 mg/dL [facility] GFR/1.73 sq M.predicted MDRD (S/P/Bld) [Vol rate/Area] - PINF [facility] Comment on above: Calculation based on the Chronic Kidney Disease Epidemiology Collaboration (CKD-EPI) equation refit without adjustment for race Glucose [Mass/Vol] 95 mg/dL 70 - 100 mg/dL [facility] Interpretation and review of laboratory results Abnormal [facility] Potassium [Moles/Vol] 3.7 mmol/L 3.5 - 5.1 mmol/L [facility] Protein [Mass/Vol] 6.2 g/dL Low 6.3 - 8.2 g/dL [facility] Sodium [Moles/Vol] 125 mmol/L Low 135 - 145 mmol/L [facility] Urea nitrogen [Mass/Vol] 6 mg/dL Low 9 - 20 mg/dL [facility] Laboratory - Chemistry and C hemistry - challengeon 04-14-2023 Magnesium [Mass/Vol] 1.8 mg/dL 1.6 - 2 .3 mg/dL [facility] Magnesium [Mass/Vol]on 04-14 Interpretation and review of laboratory results Normal [facility] CBC panel Auto (Bld)Ordered By: Sandy Nance on 04-13-2023 Erythrocyte distribution width (RBC) [Ratio] 13.7 % 11.5 - 14.5 % [facility] Hematocrit (Bld) [Volume fraction] 29.7 % Low 40.0 - 52.0 % [facility] Hemoglobin (Bld) [Mass/Vol] 10.3 g/dL Low 13.0 - 18.0 g/dL [facility] Interpretation and review of laboratory results Abnormal [facility] MCH (RBC) [Entitic mass] 34.4 pg High 26.0 - 34.0 pg [facility] MCHC (RBC) [Mass/Vol] 34.7 % 32.0 - 36.0 % [facility] MCV (RBC) [Entitic vol] 99.2 fL High 80.0 - 98.0 fL [facility] Platelet mean volume (Bld) [Entitic vol] 8.0 fL 7.4 - 12.4 fL [facility] Platelets (Bld) [#/Vol] 145 10*3/uL 140 - 440 10*3/uL [facility] RBC (Bld) [#/Vol] 2.99 10*6/uL Low 4.40 - 5.9 0 10*6/uL [facility] WBC (Bld) [#/Vol] 3.1 10*3/uL Low 3.6 - 10.7 10*3/uL [facility] Comprehensive metabolic 1998 panelon 04-13-2023 Albumin [Mass/Vol] 3.2 g/dL Low 3.5 - 5.0 g/dL [facility] ALP [Catalytic activity/Vol] 47 U/L 38 - 126 U/L [facility] ALT [Catalytic activity/Vol] 46 U/L 0 - 49 U/L [facility] Anion gap [Moles/Vol] 4 mmol/L 3 - 13 mmol/L [facility] AST [Catalytic activity/Vol] 67 U/L High 15 - 46 U/L [facility] Bilirubin [Mass/Vol] 0.5 mg/dL 0.2 - 1 .3 mg/dL [facility] Calcium [Mass/Vol] 7.9 mg/dL Low 8.4 - 10. 4 mg/dL [facility] Chloride [Moles/Vol] 99 mmol/L 98 - 10 7 mmol/L [facility] CO2 [Moles/Vol] 24 mmol/L 22 - 30 mmol/L [facility] Creatinine [Mass/Vol] 0.76 mg/dL 0.66 - 1.25 mg/dL [facility] GFR/1.73 sq M.predicted MDRD (S/P/Bld) [Vol rate/Area] - PINF [facility] Comment on above: Calculation based on the Chronic Kidney Disease Epidemiology Collaboration (CKD-EPI) equation refit without adjustment for race Glucose [Mass/Vol] 91 mg/dL 70 - 100 mg/dL [facility] Interpretation and review of laboratory results Abnormal [facility] Potassium [Moles/Vol] 3.5 mmol/L 3.5 - 5.1 mmol/L [facility] Protein [Mass/Vol] 5.7 g/dL Low 6.3 - 8.2 g/dL [facility] Sodium [Moles/Vol] 127 mmol/L Low 135 - 145 mmol/L [facility] Urea nitrogen [Mass/Vol] 8 mg/dL Low 9 - 20 mg/dL [facility] Laboratory - Chemistry and C hemistry - challengeOrdered By: Daniel Allen on 04-13-2023 Magnesium [Mass/Vol] 0.9 mg/dL Critically low 1.6 - 2.3 mg/dL [facility] Magnesium [Mass/Vol]Ordered By: Daniel Allen on 04-13-2023 Interpretation and review of laboratory results Abnormal [facility] CBC panel Auto (Bld)Ordered By: Philip Medrano on 04-12-2023 Erythrocyte distribution width (RBC) [Ratio] 14.0 % 11.5 - 14.5 % [facility] Hematocrit (Bld) [Volume fraction] 27.9 % Low 40.0 - 52.0 % [facility] Hemoglobin (Bld) [Mass/Vol] 9.8 g/dL Low 13.0 - 18.0 g/dL [facility] Interpretation and review of laboratory results Abnormal [facility] MCH (RBC) [Entitic mass] 34.7 pg High 26.0 - 34.0 pg [facility] MCHC (RBC) [Mass/Vol] 35.0 % 32.0 - 36.0 % [facility] MCV (RBC) [Entitic vol] 99.1 fL High 80.0 - 98.0 fL [facility] Platelet mean volume (Bld) [Entitic vol] 8.2 fL 7.4 - 12.4 fL [facility] Platelets (Bld) [#/Vol] 134 10*3/uL Low 140 - 440 10*3/uL [facility] RBC (Bld) [#/Vol] 2.82 10*6/uL Low 4.40 - 5.9 0 10*6/uL [facility] WBC (Bld) [#/Vol] 3.1 10*3/uL Low 3.6 - 10.7 10*3/uL [facility] Comprehensive metabolic 1998 panelon 04-12-2023 Albumin [Mass/Vol] 3.2 g/dL Low 3.5 - 5.0 g/dL [facility] ALP [Catalytic activity/Vol] 59 U/L 38 - 126 U/L [facility] ALT [Catalytic activity/Vol] 50 U/L High 0 - 49 U/L [facility] Anion gap [Moles/Vol] 4 mmol/L 3 - 13 mmol/L [facility] AST [Catalytic activity/Vol] 75 U/L High 15 - 46 U/L [facility] Bilirubin [Mass/Vol] 0.3 mg/dL 0.2 - 1 .3 mg/dL [facility] Calcium [Mass/Vol] 8.2 mg/dL Low 8.4 - 10. 4 mg/dL [facility] Chloride [Moles/Vol] 104 mmol/L 98 - 10 7 mmol/L [facility] CO2 [Moles/Vol] 24 mmol/L 22 - 30 mmol/L [facility] Creatinine [Mass/Vol] 0.90 mg/dL 0.66 - 1.25 mg/dL [facility] GFR/1.73 sq M.predicted MDRD (S/P/Bld) [Vol rate/Area] - PINF [facility] Comment on above: Calculation based on the Chronic Kidney Disease Epidemiology Collaboration (CKD-EPI) equation refit without adjustment for race Glucose [Mass/Vol] 97 mg/dL 70 - 100 mg/dL [facility] Interpretation and review of laboratory results Abnormal [facility] Potassium [Moles/Vol] 3.6 mmol/L 3.5 - 5.1 mmol/L [facility] Protein [Mass/Vol] 5.8 g/dL Low 6.3 - 8.2 g/dL [facility] Sodium [Moles/Vol] 131 mmol/L Low 135 - 145 mmol/L [facility] Urea nitrogen [Mass/Vol] 8 mg/dL Low 9 - 20 mg/dL [facility] CBC panel Auto (Bld)Ordered By: Montrell Charles on 04-11-2023 Erythrocyte distribution width (RBC) [Ratio] 14.2 % 11.5 - 14.5 % [facility] Hematocrit (Bld) [Volume fraction] 28.8 % Low 40.0 - 52.0 % [facility] Hemoglobin (Bld) [Mass/Vol] 9.9 g/dL Low 13.0 - 18.0 g/dL [facility] Interpretation and review of laboratory results Abnormal [facility] MCH (RBC) [Entitic mass] 34.6 pg High 26.0 - 34.0 pg [facility] MCHC (RBC) [Mass/Vol] 34.6 % 32.0 - 36.0 % [facility] MCV (RBC) [Entitic vol] 100.0 fL High 80.0 - 98.0 fL [facility] Platelet mean volume (Bld) [Entitic vol] 7.8 fL 7.4 - 12.4 fL [facility] Platelets (Bld) [#/Vol] 119 10*3/uL Low 140 - 440 10*3/uL [facility] RBC (Bld) [#/Vol] 2.88 10*6/uL Low 4.40 - 5.9 0 10*6/uL [facility] WBC (Bld) [#/Vol] 2.3 10*3/uL Low 3.6 - 10.7 10*3/uL [facility] Comprehensive metabolic 1998 panelon 04-11-2023 Albumin [Mass/Vol] 3.2 g/dL Low 3.5 - 5.0 g/dL [facility] ALP [Catalytic activity/Vol] 64 U/L 38 - 126 U/L [facility] ALT [Catalytic activity/Vol] 60 U/L High 0 - 49 U/L [facility] Anion gap [Moles/Vol] 5 mmol/L 3 - 13 mmol/L [facility] AST [Catalytic activity/Vol] 100 U/L High 15 - 46 U/L [facility] Bilirubin [Mass/Vol] 0.4 mg/dL 0.2 - 1 .3 mg/dL [facility] Calcium [Mass/Vol] 8.3 mg/dL Low 8.4 - 10. 4 mg/dL [facility] Chloride [Moles/Vol] 103 mmol/L 98 - 10 7 mmol/L [facility] CO2 [Moles/Vol] 22 mmol/L 22 - 30 mmol/L [facility] Creatinine [Mass/Vol] 0.94 mg/dL 0.66 - 1.25 mg/dL [facility] GFR/1.73 sq M.predicted MDRD (S/P/Bld) [Vol rate/Area] - PINF [facility] Comment on above: Calculation based on the Chronic Kidney Disease Epidemiology Collaboration (CKD-EPI) equation refit without adjustment for race Glucose [Mass/Vol] 89 mg/dL 70 - 100 mg/dL [facility] Interpretation and review of laboratory results Abnormal [facility] Potassium [Moles/Vol] 3.6 mmol/L 3.5 - 5.1 mmol/L [facility] Protein [Mass/Vol] 5.7 g/dL Low 6.3 - 8.2 g/dL [facility] Sodium [Moles/Vol] 130 mmol/L Low 135 - 145 mmol/L [facility] Urea nitrogen [Mass/Vol] 10 mg/dL 9 - 20 mg/dL [facility] No Panel InformationOrdered By: Richie Iniguez on 04-11-2023 P [place] 106 degrees [facility] Work Phone: [place] Interval 158 ms [employer] Work Phone: QRS [place] -40 degrees [employer] Work Phone: QRSD Interval 140 ms [employer] Work Phone: QT Interval 368 ms [facility] Work Phone: QTC Interval 485 ms [employer] Work Phone: T Wave [place] 7 degrees [employer] Work Phone: [employer] Work Phone: No Panel Informationon 04-11 SINUS [...] On 04-11-2023 12:14:19 EDT by Richie Iniguez [facility] Vital signsOrdered By: Clifton Iniguez on 04-11-2023 Heart rate 104 /min bpm [facility] Work Phone: Comprehensive metabolic 1998 panelon 04-10-2023 Albumin [Mass/Vol] 3.3 g/dL Low 3.5 - 5.0 g/dL [facility] ALP [Catalytic activity/Vol] 54 U/L 38 - 126 U/L [facility] ALT [Catalytic activity/Vol] 62 U/L High 0 - 49 U/L [facility] Anion gap [Moles/Vol] 5 mmol/L 3 - 13 mmol/L [facility] AST [Catalytic activity/Vol] 142 U/L High 15 - 46 U/L [facility] Bilirubin [Mass/Vol] 0.3 mg/dL 0.2 - 1 .3 mg/dL [facility] Calcium [Mass/Vol] 8.2 mg/dL Low 8.4 - 10. 4 mg/dL [facility] Chloride [Moles/Vol] 101 mmol/L 98 - 10 7 mmol/L [facility] CO2 [Moles/Vol] 23 mmol/L 22 - 30 mmol/L [facility] Creatinine [Mass/Vol] 0.94 mg/dL 0.66 - 1.25 mg/dL [facility] GFR/1.73 sq M.predicted MDRD (S/P/Bld) [Vol rate/Area] - PINF [facility] Comment on above: Calculation based on the Chronic Kidney Disease Epidemiology Collaboration (CKD-EPI) equation refit without adjustment for race Glucose [Mass/Vol] 83 mg/dL 70 - 100 mg/dL [facility] Interpretation and review of laboratory results Abnormal [facility] Potassium [Moles/Vol] 4.1 mmol/L 3.5 - 5.1 mmol/L [facility] Protein [Mass/Vol] 6.0 g/dL Low 6.3 - 8.2 g/dL [facility] Sodium [Moles/Vol] 129 mmol/L Low 135 - 145 mmol/L [facility] Urea nitrogen [Mass/Vol] 6 mg/dL Low 9 - 20 mg/dL [facility] Gastrointestinal pathogens p mac SHANE+probe (Stl)Ordered By: Edy Garcia on 04-10-2023 Adenovirus F 40/41 Not detected Not Detected [facility] Astrovirus Not detected Not Detected [facility] Campylobacter Not detected Not Detected [facility] Cryptosporidium Not detected Not Detected [facility] Cyclospora cayetanensis Not detected Not Detected [facility] Entamoeba histolytica Not detected Not Detected [facility] Enterotoxigenic E coli (ETEC) Not detected Not Detected [facility] Giardia lamblia Not detected Not Detected [facility] Interpretation and review of laboratory results Normal [facility] Norovirus GI/GII Not detected Not Detected [facility] Plesiomonas shigelloides Not detected Not Detected [facility] Rotavirus A Not detected Not Detected [facility] Salmonella Not detected Not Detected [facility] Sapovirus Not detected Not Detected [facility] Shiga toxin-producing E coli (STEC) Not detected Not Detected [facility] Shigella/Enteroinvasiv e E coli (EIEC) Not detected Not Detected [facility] Vibrio cholerae Not detected Not Detected [facility] Vibrio species Not detected Not Detected [facility] Yersinia enterocolitica Not detected Not Detected [facility] Methodology: Multipl ex PCR [facility] Laboratory - Chemistry and C hemistry - challengeon 04-10-2023 Sodium (24H U) [Mass/Vol] 41 mmol/L 30 - 90 mmol/L [facility] TSH Qn 3.864 m[IU]/L [facility] Sodium (24H U) [Mass/Vol] 8 mmol/L Low 30 - 90 mmol/L [facility] No Panel Informationon 04-10 Interpretation and review of laboratory results Normal [facility] Interpretation and review of laboratory results Abnormal [facility] OSMOLALITY, URINE 88 Low [facility] Interpretation and review of laboratory results Abnormal [facility] No Panel InformationOrdered By: Gabriela Franco on 04-10-2023 Interpretation and review of laboratory results Abnormal [facility] OSMOLALITY, URINE 230 Low [facility] No Panel InformationOrdered By: Aylin Moran on 04-10-2023 Interpretation and review of laboratory results Normal [facility] OSMOLALITY, SERUM 286 [facility] TSH Qnon 04-10-2023 Interpretation and review of laboratory results Normal [facility] Urinalysis complete panel (U )on 04-10-2023 Bilirubin Ql (U) Negative Negative mg/dL [facility] Clarity (U) Clear Clear [facility] Color (U) Light Yellow Lt. Yellow [facility] Glucose Ql (U) Normal Normal (<70) mg/dL [facility] Hemoglobin Ql (U) Negative Negative mg/dL [facility] Interpretation and review of laboratory results Normal [facility] Ketones (U) [Mass/Vol] Negative Negat zenia mg/dL [facility] Leukocyte esterase Test strip Ql (U) Negative Negative Emma/uL [facility] Nitrite Ql (U) Negative Negative [facility] pH (U) 5.5 [pH] 5.0 - 8.0 pH [facility] Protein (U) [Mass/Vol] Negative Negat zenia mg/dL [facility] Specific gravity (U) [Rel density] 1.006 1.005 - 1.030 [facility] Urobilinogen (U) [Mass/Vol] Normal Normal (0-1) mg/dL [facility] CBC panel Auto (Bld)Ordered By: Sloane Rubin on 04-09-2023 Erythrocyte distribution width (RBC) [Ratio] 12.8 % 11.5 - 14.5 % [facility] Hematocrit (Bld) [Volume fraction] 28.5 % Low 40.0 - 52.0 % [facility] Hemoglobin (Bld) [Mass/Vol] 10.0 g/dL Low 13.0 - 18.0 g/dL [facility] Interpretation and review of laboratory results Abnormal [facility] MCH (RBC) [Entitic mass] 33.9 pg 26.0 - 34.0 pg [facility] MCHC (RBC) [Mass/Vol] 35.1 % 32.0 - 36.0 % [facility] MCV (RBC) [Entitic vol] 96.6 fL 80.0 - 98.0 fL [facility] Platelet mean volume (Bld) [Entitic vol] 9.2 fL 7.4 - 12.4 fL [facility] Platelets (Bld) [#/Vol] 106 10*3/uL Low 140 - 440 10*3/uL [facility] RBC (Bld) [#/Vol] 2.95 10*6/uL Low 4.40 - 5.9 0 10*6/uL [facility] WBC (Bld) [#/Vol] 3.3 10*3/uL Low 3.6 - 10.7 10*3/uL [facility] Comprehensive metabolic 1998 panelon 04-09-2023 Albumin [Mass/Vol] 3.8 g/dL 3.5 - 5.0 g/dL [facility] ALP [Catalytic activity/Vol] 63 U/L 38 - 126 U/L [facility] ALT [Catalytic activity/Vol] 58 U/L High 0 - 49 U/L [facility] Anion gap [Moles/Vol] 12 mmol/L 3 - 13 mmol/L [facility] AST [Catalytic activity/Vol] 103 U/L High 15 - 46 U/L [facility] Bilirubin [Mass/Vol] 0.3 mg/dL 0.2 - 1 .3 mg/dL [facility] Calcium [Mass/Vol] 8.7 mg/dL 8.4 - 10. 4 mg/dL [facility] Chloride [Moles/Vol] 93 mmol/L Low 98 - 10 7 mmol/L [facility] CO2 [Moles/Vol] 19 mmol/L Low 22 - 30 mmol/L [facility] Creatinine [Mass/Vol] 1.04 mg/dL 0.66 - 1.25 mg/dL [facility] GFR/1.73 sq M.predicted MDRD (S/P/Bld) [Vol rate/Area] 80.7 mL/min/{1.73_m2} - PINF [facility] Comment on above: Calculation based on the Chronic Kidney Disease Epidemiology Collaboration (CKD-EPI) equation refit without adjustment for race Glucose [Mass/Vol] 110 mg/dL High 70 - 100 mg/dL [facility] Potassium [Moles/Vol] 3.9 mmol/L 3.5 - 5.1 mmol/L [facility] Protein [Mass/Vol] 6.6 g/dL 6.3 - 8.2 g/dL [facility] Sodium [Moles/Vol] 124 mmol/L Low 135 - 145 mmol/L [facility] Urea nitrogen [Mass/Vol] 9 mg/dL 9 - 20 mg/dL [facility] Ethanol (Bld) [Mass/Vol]on 0 04-09-2023 Ethanol [Mass/Vol] 0.210 g/dL High 0.000 - 0.010 g/dL [facility] Laboratory - Chemistry and C hemistry - challengeon 04-09-2023 Troponin I.cardiac [Mass/Vol] ng/mL 0.000 - 0.034 ng/mL [facility] Lipase [Catalytic activity/Vol] 287 U/L 23 - 300 U/L [facility] Laboratory - Coagulationon 0 04-09-2023 PT Coag (Bld) [Time] 11.3 s 9.0 - 12.0 s [facility] No Panel Informationon 04-09 Interpretation and review of laboratory results Normal [facility] Interpretation and review of laboratory results Abnormal [facility] PT Coag (Bld) [Time]on 04-09 INR Coag (PPP) [Relative time] 1.0 {INR} 0.9 - 1.1 [facility] Comment on above: Recommended Anticoag ulant [...] Interpretation and review of laboratory results Normal [facility] Patients with high l evels of Biotin oral intake (ie >5 mg/day) may have falsely decreased Troponin levels. [facility] Urinalysis complete panel (U )on 04-09-2023 Bilirubin Ql (U) Negative Negative mg/dL [facility] Clarity (U) Clear Clear [facility] Color (U) Colorless Lt. Yellow [facility] Glucose Ql (U) Normal Normal (<70) mg/dL [facility] Hemoglobin Ql (U) Negative Negative mg/dL [facility] Interpretation and review of laboratory results Abnormal [facility] Ketones (U) [Mass/Vol] Negative Negat zenia mg/dL [facility] [facility] Leukocyte esterase Test strip Ql (U) Negative Negative Emma/uL [facility] Nitrite Ql (U) Negative Negative [facility] pH (U) 5.5 [pH] 5.0 - 8.0 pH [facility] Protein (U) [Mass/Vol] Negative Negat zenia mg/dL [facility] Specific gravity (U) [Rel density] 1.002 Low 1.005 - 1.030 [facility] Urobilinogen (U) [Mass/Vol] Normal Normal (0-1) mg/dL [facility] Laboratory - Chemistry and C hemistry - challengeon 04-07-2023 Elastase.pancreatic (Stl) [Mass/Mass] >800 100 - PINF ug/g [facility] Comment on above: REFERENCE INTERVAL: Pancreatic Elastase Fecal by Immunoassay Less than 100 ug/g............Severe insufficiency 100 - 199 ug/g................Moderate insufficiency 200 ug/g or greater...........Normal INTERPRETIVE INFORMATION: Pancreatic Elastase Fecal by Immunoassay Reference intervals do not apply for infants less than one month old. Performed by [facility], [address] [place] [id number] [email or web address], Ana Heredia MD, PHD, Lab. Director Glucose [Mass/Vol] 114 mg/dL High 70 - 100 mg/dL [facility] Laboratory - Serology - non- microOrdered By: Adama Arteaga on 04-07-2023 Gliadin IgG IA Qn (S) U/ml NINF - 15.0 U/ml [facility] tTG IgA IA Qn (S) U/mL NINF - 15. 0 U/mL [facility] tTG IgA IA Qn (S) U/mL NINF - 15. 0 U/mL [facility] No Panel Informationon 04-07 [facility] Interpretation and review of laboratory results Abnormal [facility] Performed by: [facility], [address] [place] [address] CLIA ID: [id number] [facility] No Panel InformationOrdered By: Adama Arteaga on 04-07-2023 Deam Gliadin Peptide IgA 0.3 U/ml NINF - 15.0 U/ml [facility] Interpretation and review of laboratory results Normal [facility] TTG Interpretive Information: Results of 15 Units/mL or greater = POSITIVE Results Less than 15 Units/mL = NEGATIVE De[facility] Gliadin Peptide Interpretive Information: Results of 15 Units/mL or greater = POSITIVE Results Less than 15 Units/mL = NEGATIVE [facility] HIV 1+2 Ab+HIV1 p24 Ag IA Ql on 04-06-2023 Interpretation and review of laboratory results Normal [facility] Laboratory - Chemistry and C hemistry - challengeon 04-06-2023 Glucose [Mass/Vol] 164 mg/dL High 70 - 100 mg/dL [facility] Laboratory - Drug toxicology on 04-06-2023 PHENobarbital [Mass/Vol] 32.1 ug/mL 10.0 - 40.0 ug/mL [facility] Laboratory - Microbiology an d Antimicrobial susceptibilityon 04-06-2023 HIV 1+2 Ab+HIV1 p24 Ag IA Ql Non-Reactive Nonreactive [facility] Comment on above: The specimen was non -reactive for HIV-1 and HIV-2 antibodies and p24 antigen using an FDA-cleared 4th generation HIV test. Based on this non-reactive screen result, further reflexive testing was not indicated and was, therefore, not performed. No Panel Informationon 04-06 Interpretation and review of laboratory results Abnormal [facility] Performed by: [facility] Personal [employer] [facility], [address] [place] [address] CLIA ID: [id number] [facility] Interpretation and review of laboratory results Normal [facility] No Panel InformationOrdered By: Beto De La O on 04-06-2023 Case Report Peripheral Smear Ca se: [id number] Authorizing Provider: Inder Stein DO Collected: 04/04/2023 1445 Ordering Location: [address] Received: 04/04/2023 1549 Pathologist: Beto De La O DO Specimen: Blood, Venous [facility] Work Phone: Pathologist Interpretation Location [facility], [address] [place] [address], CLIA: [id number]; Joint Commission: [id number]; CAP: [id number] [facility] Work Phone: Pathology report final diagnosis Narrative x8bvtXPyQSOcmDHoBFJcEwsiv bImMDXldKLyD8RmsbmjDNviOZ 1kUV3qmRkkbOHhqRMwQIDdQwZ ji6xvo694qDBgz2jnOUDWNNtx FXNFNOk6r6hfZNBTdF2ch9c7v FkjMpKeW493bbcfayWFYVd8aV nlUxAgS4lqN6BtgombV328n5a iz5iwygPzuXQ8dAbwHspskWO1 gPPmdOT9QTgtr5GmcZxsbQwxI ZnxYJYjUfRsGCkmn1P4TN0xhW Y8RAhaEYT7QYhcn6ShGQ0cVAr 3HFcqd8ZomGVbbNZ5ENnvh2Ie HYFttUfiUQKodY6sQmBzTRwsz mVsbmZjbjIzXGxldmVsamMwXG fydbRwe0IjxyJptQJ4PXqxrgF nyGQ7hWycNOClcX3rFPRdYL06 nSkklYZ2SAetaG0uERYzP34cQ jFcbGkzNjBcZmktMzYwfXtcbG lzdGxldmVsXGxldmVsbmZjMjN zgRN1DFkjWhWlEdKyaLB8WQcs ZfSkxGH6AYoeiQSkdKX5OEtgm WA7SIb4FMf6DOblXE85gFufaB W6EKdxmG4mRBQvS13tYiEoaMi iFIwlJBJfOOO3TL06ASlrg7Sd ITLpqLzjKROfsS4uOaEeAWbsi mVsbmZjbjIzXGxldmVsamMwXG vxqiXbm8NkmsMbdUE2LBitkoP sjHR1dJxqYGJfaQ3eDCN9DU87 ePqrySK5YTzetK9wZAWoF26uG jKrcGsaEEMaHYPpBRE8SH28LX nqq0ScBUCwyEztMBKepC0qIsR zXGxldmVsbmZjbjIzXGxldmVs jlReWNokeyQck6WxlyIbrBI4C BqtoqKqiJH6mNhxLLBbtE9oVY MtJK40nKtzxWI7OIvpoC2wPFA uU12eQlOdaEcpJYLhMYMaELT8 YJ25FWmzb7PyBVCxxTkfGYJvn A8bSfWwLEyftyTmusJgslBnKM liahJczfPxQDgbhhOez7NkahM liOB3XAgelmGlwAQ9rJyqZSUt B153LEhnimScqtJbAhRwpxk4S DDqAGseJpG7SUnzjA9nLzP8v7 wpmPN3tGO5LWzvvSQ8GHonVnV sF0ceSTOzpB1wX18xQ1aoCLQh oFezKIdnAWIwzJS6MCF4DMHgm 1xsZXZlbHRleHRcJzAxXHUtMz kyOSA/T702UWwpnvOyfwOoQvI nytt6VMTdXNwiKob7LDyuvP8n BuR1b8qhzCK2aFA1MVzftAD8V EbkDuZgX8esPQYnvO8bU60sH6 klYUVqpKmlTCucGCQdtUW9HAO 7DNKha9noXRWklCQcdVUbShSc XHUtMzkxMyA/M292SMgkeiHno sQbCiEsrhu8NMWhLBwmSVE0BU zxhD8rZmW3d5allUJ8wOJ7EVp ozZY3WRduJbPkQ5mgNMEpoM2n S22aN6ilFJRrhRhfMXpoMGCcs CW6ZRC8TNJmi6uaILXewATpgL DpInJuddt3y7eaIYJfuQ18rBU pzyT5zWeyDljmhZT1FOQvRnfm MzYwfXtcbGlzdGxldmVsXGxld aDiseJtJnCnkRQ8RXzuFsVmBl VzqXX4EFuyLkThxQE0MStgjLN gaCJ5HRnxgDR5AIe7SXd5WCdh VXq9XAK1HcbvStv9y2ifNPXsi I80cQTejfM6hVrmR9xwtJXvTd TaJstgQbBffL48e6oeSAsbf1G qvbXzuqrpKWFjJqzer2zxJIji v3ImabIupnlsHAenjIV2rEE4Y QJePFBsGsWmrDixpH87UDGyjJ WgB431huJkXQboFY98OAUfwFW jzcQmNeZqXXNwhGPnyPO3JUPg CL1udplaXDwuXYhlJQOzgkQ4K NYbcKGbC6TsVSTuXR9dmfjbUU E1ZGgzFIEmYQD7DiSnVEAfs6I wwcl5EaIzoZGpQYkadCUrtsak czIwIFBlcmlwaGVyYWwgQmxvb 3VcI32eADG5UFmzXJTdyRzoHt DwZugcPaXhBRzvzgD7OPyhyxL zwSl4rHHwtKfwzA4pWeHeMJYA QP2isHRsvYTniBDlo2z8sMVwS YNdx6RdbmpbTNEmk0qdajmbVX Zcx5b3eNXiqlZ9kAAmiXNplPI eGI0wICAyz67ktUQqVFt0zXNq k6MxlecjFKMkLMRtv7C6xEftE X5pwo9vW5ejk92dSdBipsOgiV RaVXXsFEC6wTDmpXPoR4t5k3J ghsnpFmYuoUTmGKE4pBIqh9C1 KMptkcIaRWLxj2Tqo2UhWVJmz 91yCWvcb3SuCC55kKCvnBnjez AoMCRpHeyjvUGdO9mtgugriP0 uTCM2iV4hWXL9xXPhLXN5WHGt vJB1NURyMENhTPY5mdBfzcIqz 9PbfF3kwV1oIA3yRGteiKFdJX ZuELNfeHT9GFZhb9GaxCB0qL3 sUR8dQWIegALub2TkDJEab69b IQLmrkOUuLIleBMmPF8oJAT3u 0ubXN90mW5wk0rtj3tmHXCeQC Umj4XxvAPpcmCiEtrkWR0smVQ yfQ== [facility] Work Phone: [facility] Work Phone: Basic metabolic 1998 panelon 04-04-2023 Anion gap [Moles/Vol] 9 mmol/L 3 - 13 mmol/L [facility] Calcium [Mass/Vol] 8.3 mg/dL Low 8.4 - 10. 4 mg/dL [facility] Chloride [Moles/Vol] 99 mmol/L 98 - 10 7 mmol/L [facility] CO2 [Moles/Vol] 21 mmol/L Low 22 - 30 mmol/L [facility] Creatinine [Mass/Vol] 0.82 mg/dL 0.66 - 1.25 mg/dL [facility] GFR/1.73 sq M.predicted MDRD (S/P/Bld) [Vol rate/Area] - PINF [facility] Comment on above: Calculation based on the Chronic Kidney Disease Epidemiology Collaboration (CKD-EPI) equation refit without adjustment for race Glucose [Mass/Vol] 188 mg/dL High 70 - 100 mg/dL [facility] Interpretation and review of laboratory results Abnormal [facility] Potassium [Moles/Vol] 3.6 mmol/L 3.5 - 5.1 mmol/L [facility] Sodium [Moles/Vol] 128 mmol/L Low 135 - 145 mmol/L [facility] Urea nitrogen [Mass/Vol] 7 mg/dL Low 9 - 20 mg/dL [facility] Cobalamin (Vitamin B12) [Mas s/Vol]on 04-04-2023 Interpretation and review of laboratory results Normal [facility] Gastrointestinal pathogens p mac SHANE+probe (Stl)Ordered By: Albert Reid on 04-04-2023 Adenovirus F 40/41 Not detected Not Detected [facility] Astrovirus Not detected Not Detected [facility] Campylobacter Not detected Not Detected [facility] Cryptosporidium Not detected Not Detected [facility] Cyclospora cayetanensis Not detected Not Detected [facility] Entamoeba histolytica Not detected Not Detected [facility] Enterotoxigenic E coli (ETEC) Not detected Not Detected [facility] Giardia lamblia Not detected Not Detected [facility] Interpretation and review of laboratory results Normal [facility] Norovirus GI/GII Not detected Not Detected [facility] Plesiomonas shigelloides Not detected Not Detected [facility] Rotavirus A Not detected Not Detected [facility] Salmonella Not detected Not Detected [facility] Sapovirus Not detected Not Detected [facility] Shiga toxin-producing E coli (STEC) Not detected Not Detected [facility] Shigella/Enteroinvasiv e E coli (EIEC) Not detected Not Detected [facility] Vibrio cholerae Not detected Not Detected [facility] Vibrio species Not detected Not Detected [facility] Yersinia enterocolitica Not detected Not Detected [facility] Methodology: Multipl ex PCR [facility] HCV Ab IA QlOrdered By: Luisana Ayala on 04-04-2023 Interpretation and review of laboratory results Abnormal [facility] HbA1c (Bld) [Mass fraction]o n 04-04-2023 Average glucose Estimated from glycated hemoglobin (Bld) [Mass/Vol] 88 mg/dL [facility] Laboratory - Chemistry and C hemistry - challengeon 04-04-2023 Cobalamin (Vitamin B12) [Mass/Vol] 605 pg/mL 239 - 931 pg/mL [facility] TSH Qn 0.787 m[IU]/L [facility] Beta hydroxybutyrate [Mass/Vol] 5.35 mg/dL High 0.20 - 2.81 mg/dL [facility] Laboratory - Hematology and Cell countson 04-04-2023 HbA1c (Bld) [Mass fraction] 4.7 % NINF - 5.7 % [facility] Comment on above: Normal less than 5.7 % Prediabetes 5.7% to 6.4% Diabetes 6.5% or higher --HgbA1C levels may not be accurate in patients who have renal disease, received recent blood transfusions, are anemic, or who have dyshemoglobinemia. Laboratory - Microbiology an d Antimicrobial susceptibilityOrdered By: Quynh Ayala on 04-04-2023 HCV Ab IA Ql Detected Abnormal Not Detected [facility] Comment on above: Patients with DETECT ED Hepatitis C Ab results should have a new specimen submitted for supplemental testing with a Hepatitis C Quantitative RNA assay (viral load), if clinically indicated. No Panel Informationon 04-04 Interpretation and review of laboratory results Abnormal [facility] TSH Qnon 04-04-2023 Interpretation and review of laboratory results Normal [facility] XR Chest Single viewon 04-04 No acute process. Report Dictated on Electronically Signed By: Frankie Lambert Electronically Signed Date/Time: 04/04/2023 1:49 PM [facility] [...] of the spine and shoulders are present. [facility] Frankie Lambert DO - 04/04/2023 Patient Name: WOODY NI : 1960 Exam [...] Electronically Signed Date/Time: 04/04/2023 1:49 PM EDT [facility] Radiology Study observation (narrative) [facility] XR Chest Single viewOrdered By: Frankie Lambert on 04-04-2023 [facility] Work Phone: CBC W Auto Differential pane l (Bld)Ordered By: Perla Garcia on 04-02-2023 Basophils (Bld) [#/Vol] 0.0 10*3/uL 0.0 - 0.2 10*3/uL [facility] Basophils/100 WBC (Bld) 0.0 % 0.0 - 2.0 % [facility] Eosinophils (Bld) [#/Vol] 0.0 10*3/uL 0.0 - 0.5 10*3/uL [facility] Eosinophils/100 WBC (Bld) 0.0 % Low 1.0 - 6.0 % [facility] Erythrocyte distribution width (RBC) [Ratio] 13.0 % 11.5 - 14.5 % [facility] Hematocrit (Bld) [Volume fraction] 31.7 % Low 40.0 - 52.0 % [facility] Hemoglobin (Bld) [Mass/Vol] 11.4 g/dL Low 13.0 - 18.0 g/dL [facility] Immature granulocytes (Bld) [#/Vol] 0.0 10*3/uL NINF - 0.0 10*3/uL [facility] Immature granulocytes/100 WBC (Bld) 0.8 % High NINF - 0.0 % [facility] Interpretation and review of laboratory results Abnormal [facility] Lymphocytes (Bld) [#/Vol] 0.7 10*3/uL Low 1.0 - 4.3 10*3/uL [facility] Lymphocytes/100 WBC (Bld) 28.7 % 20.0 - 40.0 % [facility] MCH (RBC) [Entitic mass] 34.2 pg High 26.0 - 34.0 pg [facility] MCHC (RBC) [Mass/Vol] 36.0 % 32.0 - 36.0 % [facility] MCV (RBC) [Entitic vol] 95.2 fL 80.0 - 98.0 fL [facility] Monocytes (Bld) [#/Vol] 0.1 10*3/uL 0.0 - 0.8 10*3/uL [facility] Monocytes/100 WBC (Bld) 4.3 % 2.0 - 10.0 % [facility] Neutrophils (Bld) [#/Vol] 1.7 10*3/uL Low 1.8 - 7.0 10*3/uL [facility] Neutrophils/100 WBC (Bld) 66.2 % 40.0 - 80.0 % [facility] Platelet mean volume (Bld) [Entitic vol] 9.0 fL 7.4 - 12.4 fL [facility] Platelets (Bld) [#/Vol] 93 10*3/uL Low 140 - 440 10*3/uL [facility] RBC (Bld) [#/Vol] 3.33 10*6/uL Low 4.40 - 5.9 0 10*6/uL [facility] WBC (Bld) [#/Vol] 2.5 10*3/uL Low 3.6 - 10.7 10*3/uL [facility] CRP [Mass/Vol]on 04-02-2023 Interpretation and review of laboratory results Normal [facility] Comprehensive metabolic 1998 panelon 04-02-2023 Albumin [Mass/Vol] 4.3 g/dL 3.5 - 5.0 g/dL [facility] ALP [Catalytic activity/Vol] 79 U/L 38 - 126 U/L [facility] ALT [Catalytic activity/Vol] 89 U/L High 0 - 49 U/L [facility] Anion gap [Moles/Vol] 16 mmol/L High 3 - 13 mmol/L [facility] AST [Catalytic activity/Vol] 208 U/L High 15 - 46 U/L [facility] Bilirubin [Mass/Vol] 0.7 mg/dL 0.2 - 1 .3 mg/dL [facility] Calcium [Mass/Vol] 8.8 mg/dL 8.4 - 10. 4 mg/dL [facility] Chloride [Moles/Vol] 100 mmol/L 98 - 10 7 mmol/L [facility] CO2 [Moles/Vol] 18 mmol/L Low 22 - 30 mmol/L [facility] Creatinine [Mass/Vol] 0.86 mg/dL 0.66 - 1.25 mg/dL [facility] GFR/1.73 sq M.predicted MDRD (S/P/Bld) [Vol rate/Area] - PINF [facility] Comment on above: Calculation based on the Chronic Kidney Disease Epidemiology Collaboration (CKD-EPI) equation refit without adjustment for race Glucose [Mass/Vol] 111 mg/dL High 70 - 100 mg/dL [facility] Potassium [Moles/Vol] 4.3 mmol/L 3.5 - 5.1 mmol/L [facility] Protein [Mass/Vol] 7.3 g/dL 6.3 - 8.2 g/dL [facility] Sodium [Moles/Vol] 134 mmol/L Low 135 - 145 mmol/L [facility] Urea nitrogen [Mass/Vol] 4 mg/dL Low 9 - 20 mg/dL [facility] Ethanol (Bld) [Mass/Vol]Orde red By: Diane Carlitos on 04-02-2023 Ethanol [Mass/Vol] 0.352 g/dL Critically high 0.000 - 0.010 g/dL [facility] Interpretation and review of laboratory results Abnormal [facility] Laboratory - Chemistry and C hemistry - challengeon 04-02-2023 CO2 [Moles/Vol] 19.0 mmol/L Low 24.0 - 28.0 mmol/L [facility] HCO3 (Bld) [Moles/Vol] 18.4 mmol/L Low 23.0 - 27.0 mmol/L [facility] Oxygen (Bld) [Partial pressure] 168 mm[Hg] High [facility] pH (Bld) 7.363 [pH] 7.330 - 7.430 [facility] CRP [Mass/Vol] mg/L NINF - 10.0 mg/L [facility] Lipase [Catalytic activity/Vol] 365 U/L High 23 - 300 U/L [facility] Laboratory - Drug toxicology Ordered By: Ashly Okeefe on 04-02-2023 Amphetamines Screen method >1000 ng/mL Ql (U) Negative [facility] Barbiturates Screen method >200 ng/mL Ql (U) Positive [facility] Benzodiazepines Ql (U) Negative [facility] Methadone Screen Ql (U) Negative [facility] Opiates Screen Ql (U) Negative [facility] oxyCODONE Ql (U) Negative [facility] Phencyclidine Ql (U) Negative [facility] Laboratory - Microbiology an d Antimicrobial susceptibilityon 04-02-2023 SARS-CoV-2 (COVID-19) Ag IA.rapid Ql (Resp) Negative Negative [facility] Comment on above: A negative result do es not rule out the possibility of SARS-CoV-2 infection. NAAT-based methods should be considered for symptomatic patients presenting greater than seven days after onset of symptoms. Method: Lateral flow immunoassay. Fact sheets for healthcare providers and patients can be found at the following sites: https://www.fda.gov/media/836637/download https://www.fda.gov/media/779218/download No Panel InformationOrdered By: Ashly Okeefe on 04-02-2023 COCAINE METAB. SCREEN Negative [facility] The expected value f or all of [...] is needed, request confirmation under separate order. [facility] No Panel Informationon 04-02 BASE EXCESS -7.0 mmol/L Low -3.0 - 3.0 mmol/L [facility] Interpretation and review of laboratory results Abnormal [facility] pCO2 32 Low [facility] Source Of Oxygen Room Air [facility] Interpretation and review of laboratory results Abnormal [facility] Radiology Study observation (narrative) [facility] SARS-CoV-2 (COVID-19) Ag IA. rapid Ql (Resp)on 04-02-2023 Interpretation and review of laboratory results Normal [facility] US Abdomenon 04-02-2023 1. Diffuse hepatic steatosis. No acute finding. Report Dictated on Electronically Signed By: Ruperto Wheeler Electronically Signed Date/Time: 04/02/2023 5:54 PM T [facility] Patient Name: WOODY NI : 1960 Exam Date/Time: 04/02/2023 17:47 Procedure: US ABDOMEN [...] difficult to visualize secondary to bowel gas. [facility] Ruperto Wheeler MD - 04/02/2023 Patient Name: WOODY NI : 1960 [facility]#: [id number] Exam Date/Time: 04/02/2023 17:47 Procedure: US ABDOMEN [...] Electronically Signed Date/Time: 04/02/2023 5:54 PM EDT [facility] US AbdomenOrdered By: Ruperto díaz on 04-02-2023 [facility] Work Phone: Urinalysis complete panel (U )on 04-02-2023 Bilirubin Ql (U) Negative Negative mg/dL [facility] Clarity (U) Clear Clear [facility] Color (U) Colorless Lt. Yellow [facility] Glucose Ql (U) Normal Normal (<70) mg/dL [facility] Hemoglobin Ql (U) Negative Negative mg/dL [facility] Interpretation and review of laboratory results Abnormal [facility] Ketones (U) [Mass/Vol] Negative Negat zenia mg/dL [facility] Leukocyte esterase Test strip Ql (U) Negative Negative Emma/uL [facility] Nitrite Ql (U) Negative Negative [facility] pH (U) 5.0 [pH] 5.0 - 8.0 pH [facility] Protein (U) [Mass/Vol] Negative Negat zenia mg/dL [facility] Specific gravity (U) [Rel density] 1.002 Low 1.005 - 1.030 [facility] Urobilinogen (U) [Mass/Vol] Normal Normal (0-1) mg/dL [facility] Vital signson 04-02-2023 Oxygen saturation in Blood 99.0 % High 60.0 - 80.0 % [facility] XR Chest View and Abdomen [place] and [place] 04-02-2023 1. No acute finding. Possible ingested pill or other foreign body lower right hemipelvis. Report Dictated on Electronically Signed By: Ruperto Wheeler Electronically Signed Date/Time: 04/02/2023 6:15 PM EDT [facility] Patient Name: WOODY NI : 1960 [...] intraperitoneal gas seen. Nonspecific bowel gas pattern. [place] density in the lower right hemipelvis could represent an ingested pill or other foreign body measuring about 12 x 4.5 mm. [facility] Ruperto Wheeler MD - 04/02/2023 [...] intraperitoneal gas seen. Nonspecific bowel gas pattern. [place] density in the lower right hemipelvis could represent an ingested pill or other foreign body measuring about 12 x 4.5 mm. IMPRESSION: 1. No acute finding. Possible ingested pill or other foreign body lower right hemipelvis. Report Dictated on Electronically Signed By: Ruperto Wheeler Electronically Signed Date/Time: 04/02/2023 6:15 PM EDT [facility] XR Chest View and Abdomen [place] pine and UprightOrdered By: Ruperto Wheeler on 04-02-2023 [facility] Work Phone: Basic metabolic 1998 panelon 02-14-2023 Anion gap [Moles/Vol] 0 mmol/L Low 3 - 13 mmol/L [facility] Calcium [Mass/Vol] 9.6 mg/dL 8.4 - 10. 4 mg/dL [facility] Chloride [Moles/Vol] 103 mmol/L 98 - 10 7 mmol/L [facility] CO2 [Moles/Vol] 24 mmol/L 22 - 30 mmol/L [facility] Creatinine [Mass/Vol] 1.23 mg/dL 0.66 - 1.25 mg/dL [facility] GFR/1.73 sq M.predicted MDRD (S/P/Bld) [Vol rate/Area] 66.0 mL/min/{1.73_m2} - PINF [facility] Comment on above: Calculation based on the Chronic Kidney Disease Epidemiology Collaboration (CKD-EPI) equation refit without adjustment for race Glucose [Mass/Vol] 91 mg/dL 70 - 100 mg/dL [facility] Interpretation and review of laboratory results Abnormal [facility] Potassium [Moles/Vol] 4.4 mmol/L 3.5 - 5.1 mmol/L [facility] Sodium [Moles/Vol] 128 mmol/L Low 135 - 145 mmol/L [facility] Urea nitrogen [Mass/Vol] 15 mg/dL 9 - 20 mg/dL [facility] Laboratory - Chemistry and C hemistry - challengeon 02-13-2023 Sodium [Moles/Vol] 128 mmol/L Low 135 - 145 mmol/L [facility] Sodium (24H U) [Mass/Vol] mmol/L Low 30 - 90 mmol/L [facility] Sodium [Moles/Vol] 125 mmol/L Low 135 - 145 mmol/L [facility] No Panel Informationon 02-13 Interpretation and review of laboratory results Abnormal [facility] Interpretation and review of laboratory results Abnormal [facility] Interpretation and review of laboratory results Abnormal [facility] No Panel InformationOrdered By: Aminta Ackerman on 02-13-2023 Interpretation and review of laboratory results Abnormal [facility] OSMOLALITY, URINE 111 Low [facility] Basic metabolic 1998 panelon 02-12-2023 Anion gap [Moles/Vol] 5 mmol/L 3 - 13 mmol/L [facility] Calcium [Mass/Vol] 8.3 mg/dL Low 8.4 - 10. 4 mg/dL [facility] Chloride [Moles/Vol] 100 mmol/L 98 - 10 7 mmol/L [facility] CO2 [Moles/Vol] 20 mmol/L Low 22 - 30 mmol/L [facility] Creatinine [Mass/Vol] 1.36 mg/dL High 0.66 - 1.25 mg/dL [facility] GFR/1.73 sq M.predicted MDRD (S/P/Bld) [Vol rate/Area] 58.5 mL/min/{1.73_m2} Low - PINF [facility] Comment on above: Calculation based on the Chronic Kidney Disease Epidemiology Collaboration (CKD-EPI) equation refit without adjustment for race Glucose [Mass/Vol] 104 mg/dL High 70 - 100 mg/dL [facility] Interpretation and review of laboratory results Abnormal [facility] Potassium [Moles/Vol] 4.5 mmol/L 3.5 - 5.1 mmol/L [facility] Sodium [Moles/Vol] 125 mmol/L Low 135 - 145 mmol/L [facility] Urea nitrogen [Mass/Vol] 15 mg/dL 9 - 20 mg/dL [facility] CBC panel Auto (Bld)Ordered By: Sandy Nance on 02-12-2023 Erythrocyte distribution width (RBC) [Ratio] 13.7 % 11.5 - 14.5 % [facility] Hematocrit (Bld) [Volume fraction] 28.3 % Low 40.0 - 52.0 % [facility] Hemoglobin (Bld) [Mass/Vol] 9.8 g/dL Low 13.0 - 18.0 g/dL [facility] Interpretation and review of laboratory results Abnormal [facility] MCH (RBC) [Entitic mass] 33.9 pg 26.0 - 34.0 pg [facility] MCHC (RBC) [Mass/Vol] 34.8 % 32.0 - 36.0 % [facility] MCV (RBC) [Entitic vol] 97.4 fL 80.0 - 98.0 fL [facility] Platelet mean volume (Bld) [Entitic vol] 8.2 fL 7.4 - 12.4 fL [facility] Platelets (Bld) [#/Vol] 79 10*3/uL Low 140 - 440 10*3/uL [facility] RBC (Bld) [#/Vol] 2.91 10*6/uL Low 4.40 - 5.9 0 10*6/uL [facility] WBC (Bld) [#/Vol] 2.3 10*3/uL Low 3.6 - 10.7 10*3/uL [facility] Comprehensive metabolic 1998 panelon 02-12-2023 Albumin [Mass/Vol] 3.4 g/dL Low 3.5 - 5.0 g/dL [facility] ALP [Catalytic activity/Vol] 57 U/L 38 - 126 U/L [facility] ALT [Catalytic activity/Vol] 86 U/L High 0 - 49 U/L [facility] Anion gap [Moles/Vol] 2 mmol/L Low 3 - 13 mmol/L [facility] AST [Catalytic activity/Vol] 123 U/L High 15 - 46 U/L [facility] Bilirubin [Mass/Vol] 0.7 mg/dL 0.2 - 1 .3 mg/dL [facility] Calcium [Mass/Vol] 8.0 mg/dL Low 8.4 - 10. 4 mg/dL [facility] Chloride [Moles/Vol] 100 mmol/L 98 - 10 7 mmol/L [facility] CO2 [Moles/Vol] 23 mmol/L 22 - 30 mmol/L [facility] Creatinine [Mass/Vol] 1.53 mg/dL High 0.66 - 1.25 mg/dL [facility] GFR/1.73 sq M.predicted MDRD (S/P/Bld) [Vol rate/Area] 50.8 mL/min/{1.73_m2} Low - PINF [facility] Comment on above: Calculation based on the Chronic Kidney Disease Epidemiology Collaboration (CKD-EPI) equation refit without adjustment for race Glucose [Mass/Vol] 94 mg/dL 70 - 100 mg/dL [facility] Interpretation and review of laboratory results Abnormal [facility] Potassium [Moles/Vol] 4.0 mmol/L 3.5 - 5.1 mmol/L [facility] Protein [Mass/Vol] 5.8 g/dL Low 6.3 - 8.2 g/dL [facility] Sodium [Moles/Vol] 124 mmol/L Low 135 - 145 mmol/L [facility] Urea nitrogen [Mass/Vol] 13 mg/dL 9 - 20 mg/dL [facility] Free T3 [Mass/Vol]on 023 Interpretation and review of laboratory results Normal [facility] Free T4 [Mass/Vol]on 023 Free T4 Dialysis [Mass/Vol] 1.83 ng/dL 0.78 - 2.19 ng/dL [facility] Interpretation and review of laboratory results Normal [facility] Laboratory - Chemistry and C hemistry - challengeon 02-12-2023 Sodium [Moles/Vol] 124 mmol/L Low 135 - 145 mmol/L [facility] Free T3 [Mass/Vol] 2.81 pg/mL 2.77 - 5. 27 pg/mL [facility] Sodium [Moles/Vol] 124 mmol/L Low 135 - 145 mmol/L [facility] No Panel Informationon 02-12 Interpretation and review of laboratory results Abnormal [facility] Interpretation and review of laboratory results Abnormal [facility] US Abdomenon 02-12-2023 1. No acute sonograp hic abnormality identified. 2. Hepatic steatosis. 3. Thinning of the renal cortex, which could relate to medical renal disease. Report Dictated on Electronically Signed By: Cuoc Melara Electronically Signed Date/Time: 02/12/2023 9:44 AM EDT [facility] Patient Name: WOODY NI : [...] Visualized portions are unremarkable. OTHER FINDINGS None. [facility] Cuco Melara MD - 02/12/2023 [...] Electronically Signed Date/Time: 02/12/2023 9:44 AM EDT [facility] Study observation (narrative) [facility] US AbdomenOrdered By: Remigio Melara on 02-12-2023 [facility] Work Phone: Basic metabolic 1998 panelon 02-11-2023 Anion gap [Moles/Vol] 8 mmol/L 3 - 13 mmol/L [facility] Calcium [Mass/Vol] 7.6 mg/dL Low 8.4 - 10. 4 mg/dL [facility] Chloride [Moles/Vol] 94 mmol/L Low 98 - 10 7 mmol/L [facility] CO2 [Moles/Vol] 20 mmol/L Low 22 - 30 mmol/L [facility] Creatinine [Mass/Vol] 1.36 mg/dL High 0.66 - 1.25 mg/dL [facility] GFR/1.73 sq M.predicted MDRD (S/P/Bld) [Vol rate/Area] 58.5 mL/min/{1.73_m2} Low - PINF [facility] Comment on above: Calculation based on the Chronic Kidney Disease Epidemiology Collaboration (CKD-EPI) equation refit without adjustment for race Glucose [Mass/Vol] 87 mg/dL 70 - 100 mg/dL [facility] Interpretation and review of laboratory results Abnormal [facility] Potassium [Moles/Vol] 4.2 mmol/L 3.5 - 5.1 mmol/L [facility] Sodium [Moles/Vol] 121 mmol/L Low 135 - 145 mmol/L [facility] Urea nitrogen [Mass/Vol] 13 mg/dL 9 - 20 mg/dL [facility] Slightly hemolyzed [facility] Anion gap [Moles/Vol] 10 mmol/L 3 - 13 mmol/L [facility] Calcium [Mass/Vol] 8.4 mg/dL 8.4 - 10. 4 mg/dL [facility] Chloride [Moles/Vol] 88 mmol/L Low 98 - 10 7 mmol/L [facility] CO2 [Moles/Vol] 21 mmol/L Low 22 - 30 mmol/L [facility] Creatinine [Mass/Vol] 1.35 mg/dL High 0.66 - 1.25 mg/dL [facility] GFR/1.73 sq M.predicted MDRD (S/P/Bld) [Vol rate/Area] 59.0 mL/min/{1.73_m2} Low - PINF [facility] Comment on above: Calculation based on the Chronic Kidney Disease Epidemiology Collaboration (CKD-EPI) equation refit without adjustment for race Glucose [Mass/Vol] 126 mg/dL High 70 - 100 mg/dL [facility] Interpretation and review of laboratory results Abnormal [facility] Potassium [Moles/Vol] 3.8 mmol/L 3.5 - 5.1 mmol/L [facility] Sodium [Moles/Vol] 120 mmol/L Low 135 - 145 mmol/L [facility] Urea nitrogen [Mass/Vol] 13 mg/dL 9 - 20 mg/dL [facility] C. difficile toxin genes SHANE +probe Ql (Stl)on 02-11-2023 C. difficile toxin PCR Not detected Not Detecte d [facility] Interpretation and review of laboratory results Normal [facility] C. difficile infecti on is unlikely to be present. Methodology: Real-time PCR [facility] CBC W Auto Differential pane l (Bld)Ordered By: Montrell Charles on 02-11-2023 Basophils (Bld) [#/Vol] 0.0 10*3/uL 0.0 - 0.2 10*3/uL [facility] Basophils/100 WBC (Bld) 0.5 % 0.0 - 2.0 % [facility] Eosinophils (Bld) [#/Vol] 0.0 10*3/uL 0.0 - 0.5 10*3/uL [facility] Eosinophils/100 WBC (Bld) 0.6 % Low 1.0 - 6.0 % [facility] Erythrocyte distribution width (RBC) [Ratio] 13.5 % 11.5 - 14.5 % [facility] Hematocrit (Bld) [Volume fraction] 28.1 % Low 40.0 - 52.0 % [facility] Hemoglobin (Bld) [Mass/Vol] 9.4 g/dL Low 13.0 - 18.0 g/dL [facility] Interpretation and review of laboratory results Abnormal [facility] Lymphocytes (Bld) [#/Vol] 0.6 10*3/uL Low 1.0 - 4.3 10*3/uL [facility] Lymphocytes/100 WBC (Bld) 24.3 % 20.0 - 40.0 % [facility] MCH (RBC) [Entitic mass] 32.7 pg 26.0 - 34.0 pg [facility] MCHC (RBC) [Mass/Vol] 33.5 % 32.0 - 36.0 % [facility] MCV (RBC) [Entitic vol] 97.9 fL 80.0 - 98.0 fL [facility] Monocytes (Bld) [#/Vol] 0.4 10*3/uL 0.0 - 0.8 10*3/uL [facility] Monocytes/100 WBC (Bld) 15.9 % High 2.0 - 10.0 % [facility] Neutrophils (Bld) [#/Vol] 1.4 10*3/uL Low 1.8 - 7.0 10*3/uL [facility] Neutrophils/100 WBC (Bld) 58.7 % 40.0 - 80.0 % [facility] Nucleated RBC/100 WBC (Bld) [Ratio] 0.1 % [facility] Platelet mean volume (Bld) [Entitic vol] 8.6 fL 7.4 - 12.4 fL [facility] Platelets (Bld) [#/Vol] 77 10*3/uL Low 140 - 440 10*3/uL [facility] RBC (Bld) [#/Vol] 2.87 10*6/uL Low 4.40 - 5.9 0 10*6/uL [facility] WBC (Bld) [#/Vol] 2.4 10*3/uL Low 3.6 - 10.7 10*3/uL [facility] Gastrointestinal pathogens p mac SHANE+probe (Stl)Ordered By: Nikos Mcdonough on 02-11-2023 Adenovirus F 40/41 Not detected Not Detected [facility] Astrovirus Not detected Not Detected [facility] Campylobacter Not detected Not Detected [facility] Cryptosporidium Not detected Not Detected [facility] Cyclospora cayetanensis Not detected Not Detected [facility] Entamoeba histolytica Not detected Not Detected [facility] Enterotoxigenic E coli (ETEC) Not detected Not Detected [facility] Giardia lamblia Not detected Not Detected [facility] Interpretation and review of laboratory results Normal [facility] Norovirus GI/GII Not detected Not Detected [facility] Plesiomonas shigelloides Not detected Not Detected [facility] Rotavirus A Not detected Not Detected [facility] Salmonella Not detected Not Detected [facility] Sapovirus Not detected Not Detected [facility] Shiga toxin-producing E coli (STEC) Not detected Not Detected [facility] Shigella/Enteroinvasiv e E coli (EIEC) Not detected Not Detected [facility] Vibrio cholerae Not detected Not Detected [facility] Vibrio species Not detected Not Detected [facility] Yersinia enterocolitica Not detected Not Detected [facility] Methodology: Multipl ex PCR [facility] Iron and Iron binding capaci ty panelon 02-11-2023 Interpretation and review of laboratory results Abnormal [facility] Iron [Mass/Vol] 89 ug/dL 49 - 181 ug/dL [facility] Iron binding capacity [Mass/Vol] 237 ug/dL Low 261 - 497 ug/dL [facility] Iron saturation [Mass fraction] 38 % 15 - 50 % [facility] Laboratory - Chemistry and C hemistry - challengeon 02-11-2023 Sodium [Moles/Vol] 121 mmol/L Low 135 - 145 mmol/L [facility] Sodium [Moles/Vol] 121 mmol/L Low 135 - 145 mmol/L [facility] TSH Qn 4.885 m[IU]/L High [facility] Sodium (24H U) [Mass/Vol] 7 mmol/L Low 30 - 90 mmol/L [facility] Glucose [Mass/Vol] 89 mg/dL 70 - 100 mg/dL [facility] No Panel Informationon 02-11 Interpretation and review of laboratory results Abnormal [facility] Interpretation and review of laboratory results Abnormal [facility] Interpretation and review of laboratory results Abnormal [facility] Interpretation and review of laboratory results Normal [facility] Performed by: [facility], [address] [place], [place] [id number] CLIA ID: [id number] [facility] No Panel InformationOrdered By: Ophelia Mane on 02-11-2023 Interpretation and review of laboratory results Abnormal [facility] OSMOLALITY, URINE 143 Low [facility] TSH Qnon 02-11-2023 Interpretation and review of laboratory results Abnormal [facility] Urinalysis complete panel (U )on 02-11-2023 Bilirubin Ql (U) Negative Negative mg/dL [facility] Clarity (U) Clear Clear [facility] Color (U) Light Yellow Lt. Yellow [facility] Glucose Ql (U) Normal Normal (<70) mg/dL [facility] Hemoglobin Ql (U) Negative Negative mg/dL [facility] Interpretation and review of laboratory results Normal [facility] Ketones (U) [Mass/Vol] Negative Negat zenia mg/dL [facility] Leukocyte esterase Test strip Ql (U) Negative Negative Emma/uL [facility] Nitrite Ql (U) Negative Negative [facility] pH (U) 6.0 [pH] 5.0 - 8.0 pH [facility] Protein (U) [Mass/Vol] Negative Negat zenia mg/dL [facility] Specific gravity (U) [Rel density] 1.005 1.005 - 1.030 [facility] Urobilinogen (U) [Mass/Vol] Normal Normal (0-1) mg/dL [facility] CBC W Auto Differential pane l (Bld)Ordered By: Ashly Okeefe on 02-10-2023 Basophils (Bld) [#/Vol] 0.0 10*3/uL 0.0 - 0.2 10*3/uL [facility] Basophils/100 WBC (Bld) 0.2 % 0.0 - 2.0 % [facility] Eosinophils (Bld) [#/Vol] 0.0 10*3/uL 0.0 - 0.5 10*3/uL [facility] Eosinophils/100 WBC (Bld) 0.2 % Low 1.0 - 6.0 % [facility] Erythrocyte distribution width (RBC) [Ratio] 12.2 % 11.5 - 14.5 % [facility] Hematocrit (Bld) [Volume fraction] 32.1 % Low 40.0 - 52.0 % [facility] Hemoglobin (Bld) [Mass/Vol] 11.7 g/dL Low 13.0 - 18.0 g/dL [facility] Immature granulocytes (Bld) [#/Vol] 0.1 10*3/uL High NINF - 0.0 10*3/uL [facility] Immature granulocytes/100 WBC (Bld) 1.8 % High NINF - 0.0 % [facility] Interpretation and review of laboratory results Abnormal [facility] Lymphocytes (Bld) [#/Vol] 0.7 10*3/uL Low 1.0 - 4.3 10*3/uL [facility] Lymphocytes/100 WBC (Bld) 13.5 % Low 20.0 - 40.0 % [facility] MCH (RBC) [Entitic mass] 32.9 pg 26.0 - 34.0 pg [facility] MCHC (RBC) [Mass/Vol] 36.4 % High 32.0 - 36.0 % [facility] MCV (RBC) [Entitic vol] 90.2 fL 80.0 - 98.0 fL [facility] Monocytes (Bld) [#/Vol] 0.6 10*3/uL 0.0 - 0.8 10*3/uL [facility] Monocytes/100 WBC (Bld) 12.9 % High 2.0 - 10.0 % [facility] Neutrophils (Bld) [#/Vol] 3.5 10*3/uL 1.8 - 7.0 10*3/uL [facility] Neutrophils/100 WBC (Bld) 71.4 % 40.0 - 80.0 % [facility] Platelet mean volume (Bld) [Entitic vol] 9.6 fL 7.4 - 12.4 fL [facility] Comment on above: MPV is a calculated measurement using platelet volume ratio Platelets (Bld) [#/Vol] 108 10*3/uL Low 140 - 440 10*3/uL [facility] RBC (Bld) [#/Vol] 3.56 10*6/uL Low 4.40 - 5.9 0 10*6/uL [facility] WBC (Bld) [#/Vol] 4.9 10*3/uL 3.6 - 10.7 10*3/uL [facility] Comprehensive metabolic 1998 panelon 02-10-2023 Albumin [Mass/Vol] 4.6 g/dL 3.5 - 5.0 g/dL [facility] ALP [Catalytic activity/Vol] 80 U/L 38 - 126 U/L [facility] ALT [Catalytic activity/Vol] 121 U/L High 0 - 49 U/L [facility] Anion gap [Moles/Vol] 14 mmol/L High 3 - 13 mmol/L [facility] AST [Catalytic activity/Vol] 148 U/L High 15 - 46 U/L [facility] Bilirubin [Mass/Vol] 1.3 mg/dL 0.2 - 1 .3 mg/dL [facility] Calcium [Mass/Vol] 9.0 mg/dL 8.4 - 10. 4 mg/dL [facility] Chloride [Moles/Vol] 84 mmol/L Low 98 - 10 7 mmol/L [facility] CO2 [Moles/Vol] 19 mmol/L Low 22 - 30 mmol/L [facility] Creatinine [Mass/Vol] 1.50 mg/dL High 0.66 - 1.25 mg/dL [facility] GFR/1.73 sq M.predicted MDRD (S/P/Bld) [Vol rate/Area] 52.0 mL/min/{1.73_m2} Low - PINF [facility] Comment on above: Calculation based on the Chronic Kidney Disease Epidemiology Collaboration (CKD-EPI) equation refit without adjustment for race Glucose [Mass/Vol] 151 mg/dL High 70 - 100 mg/dL [facility] Interpretation and review of laboratory results Abnormal [facility] Potassium [Moles/Vol] 3.8 mmol/L 3.5 - 5.1 mmol/L [facility] Protein [Mass/Vol] 7.7 g/dL 6.3 - 8.2 g/dL [facility] Sodium [Moles/Vol] 118 mmol/L Critically low 135 - 1 45 mmol/L [facility] Urea nitrogen [Mass/Vol] 13 mg/dL 9 - 20 mg/dL [facility] Laboratory - Chemistry and C hemistry - challengeon 02-10-2023 Lipase [Catalytic activity/Vol] 152 U/L 23 - 300 U/L [facility] Laboratory - Coagulationon 0 02-10-2023 PT Coag (Bld) [Time] 12.3 s High 9.0 - 12.0 s [facility] Lipase [Catalytic activity/V ol]on 02-10-2023 Interpretation and review of laboratory results Normal [facility] PT Coag (Bld) [Time]on 02-10 INR Coag (PPP) [Relative time] 1.1 {INR} 0.9 - 1.1 [facility] Comment on above: Recommended Anticoag ulant [...] Interpretation and review of laboratory results Abnormal [facility] Urinalysis complete panel (U )on 02-10-2023 Bilirubin Ql (U) Negative Negative mg/dL [facility] Clarity (U) Clear Clear [facility] Color (U) Light Yellow Lt. Yellow [facility] Glucose Ql (U) Normal Normal (<70) mg/dL [facility] Hemoglobin Ql (U) Negative Negative mg/dL [facility] Interpretation and review of laboratory results Normal [facility] Ketones (U) [Mass/Vol] Negative Negat zenia mg/dL [facility] Leukocyte esterase Test strip Ql (U) Negative Negative Emma/uL [facility] Nitrite Ql (U) Negative Negative [facility] pH (U) 5.5 [pH] 5.0 - 8.0 pH [facility] Protein (U) [Mass/Vol] Negative Negat zenia mg/dL [facility] Specific gravity (U) [Rel density] 1.008 1.005 - 1.030 [facility] Urobilinogen (U) [Mass/Vol] Normal Normal (0-1) mg/dL [facility] CNCOon 01-21-2023 CNCO Letter Text Normal [facility] Laboratory - Chemistry and C hemistry - challengeon 01-05-2023 Glucose [Mass/Vol] 169 mg/dL High 70 - 100 mg/dL [facility] Glucose [Mass/Vol] 114 mg/dL High 70 - 100 mg/dL [facility] No Panel Informationon 01-05 Interpretation and review of laboratory results Abnormal [facility] Performed by: [facility], [address] [place] [address] CLIA ID: [id number] [facility] Interpretation and review of laboratory results Abnormal [facility] Performed by: [facility], [address] [place] [address] CLIA ID: [id number] [facility] Basic metabolic 1998 panelon 12-25-2022 Anion gap [Moles/Vol] 5 mmol/L 3 - 13 mmol/L [facility] Calcium [Mass/Vol] 8.7 mg/dL 8.4 - 10. 4 mg/dL [facility] Chloride [Moles/Vol] 102 mmol/L 98 - 10 7 mmol/L [facility] CO2 [Moles/Vol] 23 mmol/L 22 - 30 mmol/L [facility] Creatinine [Mass/Vol] 1.36 mg/dL High 0.66 - 1.25 mg/dL [facility] GFR/1.73 sq M.predicted MDRD (S/P/Bld) [Vol rate/Area] 58.8 mL/min/{1.73_m2} Low - PINF [facility] Comment on above: Calculation based on the Chronic Kidney Disease Epidemiology Collaboration (CKD-EPI) equation refit without adjustment for race Glucose [Mass/Vol] 110 mg/dL High 70 - 100 mg/dL [facility] Interpretation and review of laboratory results Abnormal [facility] Potassium [Moles/Vol] 4.0 mmol/L 3.5 - 5.1 mmol/L [facility] Sodium [Moles/Vol] 131 mmol/L Low 135 - 145 mmol/L [facility] Urea nitrogen [Mass/Vol] 13 mg/dL 9 - 20 mg/dL [facility] Slightly Hemolyzed [facility] Laboratory - Coagulationon 0 12-25-2022 aPTT Coag (PPP) [Time] 24.2 s 20.0 - 30.5 s [facility] INR Coag (PPP) [Relative time] 1.2 {INR} High 0.9 - 1.1 [facility] Comment on above: Recommended Anticoag ulant [...] 12.6 s High 9.0 - 12.0 s [facility] No Panel Informationon 12-25 Interpretation and review of laboratory results Abnormal [facility] Bacteria identified Cx Nom ( U)Ordered By: Ann Perry on 12-24-2022 Interpretation and review of laboratory results Normal [facility] Bilirubin.indirect [Mass/Vol ]on 12-24-2022 Bilirubin.conjugated [Mass/Vol] 0.0 mg/dL 0.0 - 0.3 mg/dL [facility] Interpretation and review of laboratory results Normal [facility] CBC panel Auto (Bld)Ordered By: Montrell Charles on 12-24-2022 Erythrocyte distribution width (RBC) [Ratio] 13.2 % 11.5 - 14.5 % [facility] Hematocrit (Bld) [Volume fraction] 34.9 % Low 40.0 - 52.0 % [facility] Hemoglobin (Bld) [Mass/Vol] 11.7 g/dL Low 13.0 - 18.0 g/dL [facility] Interpretation and review of laboratory results Abnormal [facility] MCH (RBC) [Entitic mass] 33.4 pg 26.0 - 34.0 pg [facility] MCHC (RBC) [Mass/Vol] 33.6 % 32.0 - 36.0 % [facility] MCV (RBC) [Entitic vol] 99.2 fL High 80.0 - 98.0 fL [facility] Platelet mean volume (Bld) [Entitic vol] 8.6 fL 7.4 - 12.4 fL [facility] Platelets (Bld) [#/Vol] 70 10*3/uL Low 140 - 440 10*3/uL [facility] RBC (Bld) [#/Vol] 3.52 10*6/uL Low 4.40 - 5.9 0 10*6/uL [facility] WBC (Bld) [#/Vol] 2.5 10*3/uL Low 3.6 - 10.7 10*3/uL [facility] Comprehensive metabolic 1998 panelon 12-24-2022 Albumin [Mass/Vol] 3.8 g/dL 3.5 - 5.0 g/dL [facility] ALP [Catalytic activity/Vol] 52 U/L 38 - 126 U/L [facility] ALT [Catalytic activity/Vol] 169 U/L High 0 - 49 U/L [facility] Anion gap [Moles/Vol] 5 mmol/L 3 - 13 mmol/L [facility] AST [Catalytic activity/Vol] 141 U/L High 15 - 46 U/L [facility] Bilirubin [Mass/Vol] 1.4 mg/dL High 0.2 - 1 .3 mg/dL [facility] Calcium [Mass/Vol] 9.0 mg/dL 8.4 - 10. 4 mg/dL [facility] Chloride [Moles/Vol] 101 mmol/L 98 - 10 7 mmol/L [facility] CO2 [Moles/Vol] 22 mmol/L 22 - 30 mmol/L [facility] Creatinine [Mass/Vol] 2.09 mg/dL High 0.66 - 1.25 mg/dL [facility] GFR/1.73 sq M.predicted MDRD (S/P/Bld) [Vol rate/Area] 35.1 mL/min/{1.73_m2} Low - PINF [facility] Comment on above: Calculation based on the Chronic Kidney Disease Epidemiology Collaboration (CKD-EPI) equation refit without adjustment for race Glucose [Mass/Vol] 89 mg/dL 70 - 100 mg/dL [facility] Interpretation and review of laboratory results Abnormal [facility] Potassium [Moles/Vol] 3.7 mmol/L 3.5 - 5.1 mmol/L [facility] Protein [Mass/Vol] 6.4 g/dL 6.3 - 8.2 g/dL [facility] Sodium [Moles/Vol] 129 mmol/L Low 135 - 145 mmol/L [facility] Urea nitrogen [Mass/Vol] 21 mg/dL High 9 - 20 mg/dL [facility] Laboratory - Chemistry and C hemistry - challengeon 12-24-2022 Glucose [Mass/Vol] 115 mg/dL High 70 - 100 mg/dL [facility] Glucose [Mass/Vol] 98 mg/dL 70 - 100 mg/dL [facility] Glucose [Mass/Vol] 136 mg/dL High 70 - 100 mg/dL [facility] Glucose [Mass/Vol] 87 mg/dL 70 - 100 mg/dL [facility] Laboratory - Microbiology an d Antimicrobial susceptibilityOrdered By: Ann Perry on 12-24-2022 Bacteria identified Cx Nom (U) No growth (<1,000 CFU/mL) [facility] No Panel Informationon 12-24 Interpretation and review of laboratory results Abnormal [facility]formed by: [facility], [address] [place] [id number] CLIA ID: [id number] [facility] Interpretation and review of laboratory results Normal [facility] Performed by: [facility], [address] [facility] [address] CLIA ID: [id number] [facility] Interpretation and review of laboratory results Abnormal [facility] Performed by: [facility], [address] [facility] [address] CLIA ID: [id number] [facility] Interpretation and review of laboratory results Normal [facility] Performed by: [facility], [address] [facility] [address] CLIA ID: [id number] [facility] Basic metabolic 1998 panelOr dered By: Daniel Allen on 12-23-2022 Anion gap [Moles/Vol] 7 mmol/L 3 - 13 mmol/L [facility] Calcium [Mass/Vol] 8.6 mg/dL 8.4 - 10. 4 mg/dL [facility] Chloride [Moles/Vol] 103 mmol/L 98 - 10 7 mmol/L [facility] CO2 [Moles/Vol] 18 mmol/L Low 22 - 30 mmol/L [facility] Creatinine [Mass/Vol] 5.24 mg/dL High 0.66 - 1.25 mg/dL [facility] GFR/1.73 sq M.predicted MDRD (S/P/Bld) [Vol rate/Area] 11.7 mL/min/{1.73_m2} Low - PINF [facility] Comment on above: Calculation based on the Chronic Kidney Disease Epidemiology Collaboration (CKD-EPI) equation refit without adjustment for race Glucose [Mass/Vol] 78 mg/dL 70 - 100 mg/dL [facility] Interpretation and review of laboratory results Abnormal [facility] Potassium [Moles/Vol] 4.3 mmol/L 3.5 - 5.1 mmol/L [facility] Sodium [Moles/Vol] 128 mmol/L Low 135 - 145 mmol/L [facility] Urea nitrogen [Mass/Vol] 41 mg/dL High 9 - 20 mg/dL [facility] CBC W Auto Differential pane l (Bld)Ordered By: Philip Medrano on 12-23-2022 Basophils (Bld) [#/Vol] 0.0 10*3/uL 0.0 - 0.2 10*3/uL [facility] Basophils/100 WBC (Bld) 0.5 % 0.0 - 2.0 % [facility] Eosinophils (Bld) [#/Vol] 0.1 10*3/uL 0.0 - 0.5 10*3/uL [facility] Eosinophils/100 WBC (Bld) 2.3 % 1.0 - 6.0 % [facility] Erythrocyte distribution width (RBC) [Ratio] 12.9 % 11.5 - 14.5 % [facility] Hematocrit (Bld) [Volume fraction] 33.8 % Low 40.0 - 52.0 % [facility] Hemoglobin (Bld) [Mass/Vol] 11.3 g/dL Low 13.0 - 18.0 g/dL [facility] Lymphocytes (Bld) [#/Vol] 1.2 10*3/uL 1.0 - 4.3 10*3/uL [facility] Lymphocytes/100 WBC (Bld) 39.2 % 20.0 - 40.0 % [facility] MCH (RBC) [Entitic mass] 33.4 pg 26.0 - 34.0 pg [facility] MCHC (RBC) [Mass/Vol] 33.5 % 32.0 - 36.0 % [facility] MCV (RBC) [Entitic vol] 99.5 fL High 80.0 - 98.0 fL [facility] Monocytes (Bld) [#/Vol] 0.5 10*3/uL 0.0 - 0.8 10*3/uL [facility] Monocytes/100 WBC (Bld) 15.1 % High 2.0 - 10.0 % [facility] Neutrophils (Bld) [#/Vol] 1.3 10*3/uL Low 1.8 - 7.0 10*3/uL [facility] Neutrophils/100 WBC (Bld) 42.9 % 40.0 - 80.0 % [facility] Nucleated RBC/100 WBC (Bld) [Ratio] 0.0 % [facility] Platelet mean volume (Bld) [Entitic vol] 8.5 fL 7.4 - 12.4 fL [facility] Platelets (Bld) [#/Vol] 56 10*3/uL Low 140 - 440 10*3/uL [facility] RBC (Bld) [#/Vol] 3.39 10*6/uL Low 4.40 - 5.9 0 10*6/uL [facility] WBC (Bld) [#/Vol] 3.1 10*3/uL Low 3.6 - 10.7 10*3/uL [facility] Creatinine (U) [Mass/Vol]on 12-23-2022 CREATININE, URINE 34.6 mg/dL No Range [facility] Laboratory - Chemistry and C hemistry - challengeon 12-23-2022 Glucose [Mass/Vol] 82 mg/dL 70 - 100 mg/dL [facility] Glucose [Mass/Vol] 83 mg/dL 70 - 100 mg/dL [facility] Urea nitrogen (U) [Mass/Vol] 153 mg/dL No Range [facility] Chloride (U) [Moles/Vol] 51 mmol/L 19 - 209 mmol/L [facility] Sodium (24H U) [Mass/Vol] 30 mmol/L 30 - 90 mmol/L [facility] Glucose [Mass/Vol] 144 mg/dL High 70 - 100 mg/dL [facility] Glucose [Mass/Vol] 71 mg/dL 70 - 100 mg/dL [facility] Glucose [Mass/Vol] 72 mg/dL 70 - 100 mg/dL [facility] Laboratory - Urinalysison Protein (U) [Mass/Vol] 16 mg/dL High 0 - 12 mg/dL [facility] Manual differential performe d Ql (Bld)on 12-23-2022 Anisocytosis Ql (Bld) Slight Abnormal (none) [facility] platelets LM Ql (Bld) Rare Abnormal (none) [facility] Leukocyte morphology finding Nom (Bld) Normal [facility] Ovalocytes LM Ql (Bld) Slight Abnormal (none) [facility] No Panel Informationon 12-23 Interpretation and review of laboratory results Normal [facility] Performed by: [facility], [address] [place] [id number] CLIA ID: [id number] [facility] Interpretation and review of laboratory results Normal [facility] Performed by: [facility], [address] [place] [address] CLIA ID: [id number] [facility] Interpretation and review of laboratory results Normal [facility] Interpretation and review of laboratory results Abnormal [facility] Interpretation and review of laboratory results Abnormal [facility] Performed by: [facility], [address] [place] [address] CLIA ID: [id number] [facility] Interpretation and review of laboratory results Normal [facility] Performed by: [facility], [address] [place] [address] CLIA ID: [id number] [facility] Interpretation and review of laboratory results Normal [facility] Performed by: [facility], [address] [place] [address] CLIA ID: [id number] [facility] No Panel InformationOrdered By: Philip Medrano on 12-23-2022 Interpretation and review of laboratory results Abnormal [facility] Urinalysis complete panel (U )Ordered By: Aminta Ackerman on 12-23-2022 Bilirubin Ql (U) Negative Negative mg/dL [facility] Clarity (U) Clear Clear [facility] Color (U) Colorless Lt. Yellow [facility] Glucose Ql (U) Normal Normal (<70) mg/dL [facility] Hemoglobin Ql (U) Negative Negative mg/dL [facility] Interpretation and review of laboratory results Abnormal [facility] Ketones (U) [Mass/Vol] Negative Negat zenia mg/dL [facility] Leukocyte esterase Test strip Ql (U) Negative Negative Emma/uL [facility] Nitrite Ql (U) Negative Negative [facility] pH (U) 5.0 [pH] 5.0 - 8.0 pH [facility] Protein (U) [Mass/Vol] Negative Negat zenia mg/dL [facility] Specific gravity (U) [Rel density] 1.004 Low 1.005 - 1.030 [facility] Urobilinogen (U) [Mass/Vol] Normal Normal (0-1) mg/dL [facility] CBC W Auto Differential pane l (Bld)Ordered By: Ashly Okeefe on 12-22-2022 Basophils (Bld) [#/Vol] 0.0 10*3/uL 0.0 - 0.2 10*3/uL [facility] Basophils/100 WBC (Bld) 0.6 % 0.0 - 2.0 % [facility] Eosinophils (Bld) [#/Vol] 0.1 10*3/uL 0.0 - 0.5 10*3/uL [facility] Eosinophils/100 WBC (Bld) 1.6 % 1.0 - 6.0 % [facility] Erythrocyte distribution width (RBC) [Ratio] 11.9 % 11.5 - 14.5 % [facility] Hematocrit (Bld) [Volume fraction] 35.8 % Low 40.0 - 52.0 % [facility] Hemoglobin (Bld) [Mass/Vol] 12.3 g/dL Low 13.0 - 18.0 g/dL [facility] Immature granulocytes (Bld) [#/Vol] 0.0 10*3/uL NINF - 0.0 10*3/uL [facility] Immature granulocytes/100 WBC (Bld) 0.8 % High NINF - 0.0 % [facility] Interpretation and review of laboratory results Abnormal [facility] Lymphocytes (Bld) [#/Vol] 1.4 10*3/uL 1.0 - 4.3 10*3/uL [facility] Lymphocytes/100 WBC (Bld) 27.7 % 20.0 - 40.0 % [facility] MCH (RBC) [Entitic mass] 33.6 pg 26.0 - 34.0 pg [facility] MCHC (RBC) [Mass/Vol] 34.4 % 32.0 - 36.0 % [facility] MCV (RBC) [Entitic vol] 97.8 fL 80.0 - 98.0 fL [facility] Monocytes (Bld) [#/Vol] 0.7 10*3/uL 0.0 - 0.8 10*3/uL [facility] Monocytes/100 WBC (Bld) 13.6 % High 2.0 - 10.0 % [facility] Neutrophils (Bld) [#/Vol] 2.7 10*3/uL 1.8 - 7.0 10*3/uL [facility] Neutrophils/100 WBC (Bld) 55.7 % 40.0 - 80.0 % [facility] Platelet mean volume (Bld) [Entitic vol] 10.5 fL 7.4 - 12.4 fL [facility] Platelets (Bld) [#/Vol] 76 10*3/uL Low 140 - 440 10*3/uL [facility] RBC (Bld) [#/Vol] 3.66 10*6/uL Low 4.40 - 5.9 0 10*6/uL [facility] WBC (Bld) [#/Vol] 4.9 10*3/uL 3.6 - 10.7 10*3/uL [facility] This is an appended report. These results have been appended to a previously verified report. [facility] CT Abdomen WO contraston [facility] 1960 [id number] Exam Date/Time: 12/22/2022 19:41 Procedure: CT ABDOMEN [...] discogenic degenerative changes. Stable retrolisthesis at L2-L3. [facility] Ryan White MD - 12/22/2022 [facility] Name[facility] NI : 1960 [id number] Exam Date/Time: 12/22/2022 19:41 Procedure: CT ABDOMEN [...] Electronically Signed Date/Time: 12/22/2022 8:01 PM EST [facility] Radiology Study observation (narrative) [facility] CT Abdomen WO contrastOrdere d By: Ryan White on 12-22-2022 [facility] Work Phone: Comprehensive metabolic 1998 panelon 12-22-2022 Albumin [Mass/Vol] 4.6 g/dL 3.5 - 5.0 g/dL [facility] ALP [Catalytic activity/Vol] 59 U/L 38 - 126 U/L [facility] ALT [Catalytic activity/Vol] 214 U/L High 0 - 49 U/L [facility] Anion gap [Moles/Vol] 9 mmol/L 3 - 13 mmol/L [facility] AST [Catalytic activity/Vol] 205 U/L High 15 - 46 U/L [facility] Bilirubin [Mass/Vol] 1.0 mg/dL 0.2 - 1 .3 mg/dL [facility] Calcium [Mass/Vol] 9.6 mg/dL 8.4 - 10. 4 mg/dL [facility] Chloride [Moles/Vol] 92 mmol/L Low 98 - 10 7 mmol/L [facility] CO2 [Moles/Vol] 22 mmol/L 22 - 30 mmol/L [facility] Creatinine [Mass/Vol] 6.62 mg/dL High 0.66 - 1.25 mg/dL [facility] GFR/1.73 sq M.predicted MDRD (S/P/Bld) [Vol rate/Area] 8.8 mL/min/{1.73_m2} Low - PINF [facility] Comment on above: Calculation based on the Chronic Kidney Disease Epidemiology Collaboration (CKD-EPI) equation refit without adjustment for race Glucose [Mass/Vol] 101 mg/dL High 70 - 100 mg/dL [facility] Interpretation and review of laboratory results Abnormal [facility] Potassium [Moles/Vol] 5.1 mmol/L 3.5 - 5.1 mmol/L [facility] Protein [Mass/Vol] 7.8 g/dL 6.3 - 8.2 g/dL [facility] Sodium [Moles/Vol] 124 mmol/L Low 135 - 145 mmol/L [facility] Urea nitrogen [Mass/Vol] 46 mg/dL High 9 - 20 mg/dL [facility] Laboratory - Chemistry and C hemistry - challengeon 12-22-2022 Lipase [Catalytic activity/Vol] 111 U/L 23 - 300 U/L [facility] Lipase [Catalytic activity/V ol]on 12-22-2022 Interpretation and review of laboratory results Normal [facility] No Panel Informationon 12-22 [facility] Urinalysis complete panel (U )on 12-22-2022 Bacteria LM.HPF (Urine sed) [#/Area] Moderate Abnormal Negative /HPF [facility] Bilirubin Ql (U) Negative Negative mg/dL [facility] Clarity (U) Clear Clear [facility] Color (U) Yellow Lt. Yellow [facility] Epithelial cells.squamous LM.HPF (Urine sed) [#/Area] 0-2 [facility] Glucose Ql (U) Normal Normal (<70) mg/dL [facility] Hemoglobin Ql (U) 0.03 mg/dL Abnormal Negative [facility] Hyaline casts Auto (Urine sed) [#/Area] 3-5 Abnormal Negative /LPF [facility] Interpretation and review of laboratory results Abnormal [facility] Ketones (U) [Mass/Vol] Negative Negat zenia mg/dL [facility] Leukocyte esterase Test strip Ql (U) Negative Negative Emma/uL [facility] Mucus LM.HPF (Urine sed) [#/Area] Few Negative /LPF [facility] Nitrite Ql (U) Negative Negative [facility] pH (U) 5.0 [pH] 5.0 - 8.0 pH [facility] Protein (U) [Mass/Vol] 30 mg/dL Abnormal Negative [facility] RBC LM.HPF (Urine sed) [#/Area] Negative [facility] Specific gravity (U) [Rel density] 1.017 1.005 - 1.030 [facility] Urobilinogen (U) [Mass/Vol] Normal Normal (0-1) mg/dL [facility] Volume, Urine 12 mL [facility] WBC LM.HPF (Urine sed) [#/Area] 0-2 [facility] No [facility] St[facility] Screen #1 on 06-06-2022 Hemoglobin.gastrointes tinal Ql (Stl) Negative Negative NA [facility] Test Performed by [facility], [address] [place], [place] [address] [facility] Comp Metabolic Panelon 06-06 ALP [Catalytic activity/Vol] 65 U/L Normal 38-126 [facility] Comment on above: Performed By: #### N A3 #### [facility] [address] [place] [address] ALT [Catalytic activity/Vol] 183 U/L High 0-49 [facility] Comment on above: Result Comment: The ALT test is performed by an updated assay method. Please note that the reference intervals have been changed and are now sex specific. Performed By: #### N A3 #### [facility] [address] [place] [address] AST [Catalytic activity/Vol] 175 U/L High 15-46 [facility] Comment on above: Performed By: #### N A3 #### [facility] [address] [place] [address] Calcium [Mass/Vol] 9.0 mg/dL Normal 8.4-10.4 [facility] Comment on above: Performed By: #### N A3 #### [facility] [address] [place] [address] Glucose [Mass/Vol] 94 mg/dL Normal 70-100 [facility] Comment on above: Performed By: #### N A3 #### [facility] [address] [place] [address] Protein [Mass/Vol] 6.1 g/dL Low 6.3-8.2 [facility] Comment on above: Performed By: #### N A3 #### [facility] [address] [place] [address] Urea nitrogen [Mass/Vol] 7 mg/dL Normal 7-17 [facility] Comment on above: Performed By: #### N A3 #### [facility] [address] [place] [address] Anion gap [Moles/Vol] 4 mmol/L Normal 3-13 [facility] Comment on above: Performed By: #### N A3 #### [facility] [address] [place] [address] Bilirubin [Mass/Vol] 0.7 mg/dL Normal 0.2-1.3 [facility] Comment on above: Performed By: #### N A3 #### [facility] [address] [place] [address] CO2 [Moles/Vol] 23 mmol/L Normal 22-30 [facility] Comment on above: Performed By: #### N A3 #### [facility] [address] [place] [address] Creatinine [Mass/Vol] 1.23 mg/dL Normal 0.52-1.25 [facility] Comment on above: Performed By: #### N A3 #### [facility] [address] [place] [address] GFR/1.73 sq M.predicted among blacks MDRD (S/P/Bld) [Vol rate/Area] 72.3 mL/min/{1.73_m2} Normal >60 [facility] Comment on above: Performed By: #### N A3 #### [facility] [address] [place] [address] GFR/1.73 sq M.predicted among non-blacks MDRD (S/P/Bld) [Vol rate/Area] 62.4 mL/min/{1.73_m2} Normal >60 [facility] Comment on above: Result Comment: KDIG [...] secretion. Performed By: #### N A3 #### [facility] [address] [place] [address] Albumin [Mass/Vol] 3.7 g/dL Normal 3.5-5.0 [facility] Comment on above: Performed By: #### N A3 #### [facility] [address] [place] [address] Chloride [Moles/Vol] 100 mmol/L Normal 98-107 [facility] Comment on above: Performed By: #### N A3 #### [facility] [address] [place] [address] Potassium [Moles/Vol] 4.6 mmol/L Normal 3.5-5.1 [facility] Comment on above: Performed By: #### N A3 #### [facility] [address] [place] [address] Sodium [Moles/Vol] 127 mmol/L Low 135-145 [facility] Comment on above: Performed By: #### N A3 #### [facility] [address] [place] [address] Comprehensive Metabolic Pane peter 06-06-2022 Albumin [Mass/Vol] 3.7 g/dL 3.5 - 5 g/dL [facility] ALP (Bld) [Catalytic activity/Vol] 65 U/L 38 - 126 U/L [facility] ALT [Catalytic activity/Vol] 183 U/L High 0 - 49 U/L [facility] Comment on above: The ALT test is perf ormed by an updated assay method. Please note that the reference intervals have been changed and are now sex specific. Anion gap [Moles/Vol] 4 mmol/L 3 - 13 mmol/L [facility] AST [Catalytic activity/Vol] 175 U/L High 15 - 46 U/L [facility] Bilirubin [Mass/Vol] 0.7 mg/dL 0.2 - 1 .3 mg/dL [facility] Calcium [Mass/Vol] 9.0 mg/dL 8.4 - 10. 4 mg/dL [facility] Chloride [Moles/Vol] 100 mmol/L 98 - 10 7 mmol/L [facility] CO2 [Moles/Vol] 23 mmol/L 22 - 30 mmol/L [facility] Creatinine [Mass/Vol] 1.23 mg/dL 0.52 - 1.25 mg/dL [facility] EGFR IF NonAfrican Z[place]ian 62.4 mL/min 60 - PINF mL/min [facility] Comment [...] [Mass/Vol] 94 mg/dL 70 - 100 mg/dL [facility] Interpretation and review of laboratory results Abnormal [facility] Potassium [Moles/Vol] 4.6 mmol/L 3.5 - 5.1 mmol/L [facility] Sodium [Moles/Vol] 127 mmol/L Low 135 - 145 mmol/L [facility] Urea nitrogen (BldV) [Mass/Vol] 7 mg/dL 7 - 17 mg/dL [facility] Test Performed by [facility], [address], [place], [place] [address] [facility] Fecal Occult,Stool Single Sp econ 06-06-2022 Fecal Occult,Stool Single Spec Negative Normal Negative [facility] Comment on above: Performed By: #### N A3 #### [facility] [address] [place] [address] Glucose,Bedsideon 06-06-2022 Glucose [Mass/Vol] 153 mg/dL High 70-100 [facility] Comment on above: Result Comment: Test performed by glucose meter. Results may be 10%-15% lower than serum/plasma values. (CLIA ID [id number]) Performed By: #### N A3 #### [facility] [address] [place] [address] Glucose [Mass/Vol] 133 mg/dL High 70-100 [facility] Comment on above: Result Comment: Test performed by glucose meter. Results may be 10%-15% lower than serum/plasma values. (CLIA ID [id number]) Performed By: #### B GLU #### [facility] [address] [place] [address] [place] GASTRIC EMPTYINGon 2021 Patient Name: WOODY NI Nuclear Medicine ACCESSION EXAM DATE/TIME PROCEDURE ORDERING PROVIDER [id number] 06/06/2022 12:02 EDT [place] Gastric Emptying [id number] -ARTURO ATKINSON Study CPT code 35301 Reason For Exam (NM Gastric Emptying Study) [...] R Transcribed Date and Time: 06/06/2022 12:14 [facility] Ana Lyn MD - 06/06/2022 Patient Name: WOODY NI Nuclear Medicine ACCESSION EXAM DATE/TIME PROCEDURE ORDERING PROVIDER [id number] 06/06/2022 12:02 EDT [place] Gastric Emptying [id number] -OLEGHE, IFIJEN Study CPT code 13962 Reason For Exam (NM Gastric Emptying Study) [...] Medicine ACCESSION EXAM DATE/TIME PROCEDURE ORDERING PROVIDER [id number] 06/06/2022 12:02 EDT [place] Gastric Emptying [id number] -OLEMINNAE, IFIJEN Study CPT code 05036 Reason For Exam (NM Gastric Emptying Study) [...] R Transcribed Date and Time: 06/06/2022 12:14 Normal [facility] POCT Glucoseon 06-06-2022 Glucose [Mass/Vol] 153 mg/dL High 70 - 100 mg/dL [facility] Work Phone: Comment on above: Test performed by gl ucose meter. Results may be 10%-15% lower than serum/plasma values. (CLIA ID [id number]) Interpretation and review of laboratory results Abnormal [facility] Work Phone: Test Performed by [facility], [address] [facility] Work Phone: Test Performed by [facility], [address] [facility] POCT GlucoseOrdered By: Kaia Schaefer on 06-06-2022 Glucose [Mass/Vol] 133 mg/dL High 70 - 100 mg/dL [facility] Work Phone: Comment on above: Test performed by gl ucose meter. Results may be 10%-15% lower than serum/plasma values. (CLIA ID [id number]) Interpretation and review of laboratory results Abnormal [facility] Work Phone: [facility] Work Phone: Sodiumon 06-06-2022 Sodium [Moles/Vol] 129 mmol/L Low 135-145 [facility] Comment on above: Performed By: #### N A3 #### [facility] [address] [place] [address] CBCon 06-05-2022 Hematocrit (Bld) [Volume fraction] 31.7 % Low 40 - 52 % [facility] Hemoglobin (Bld) [Mass/Vol] 10.9 g/dL Low 13 - 18 g/dL [facility] Interpretation and review of laboratory results Abnormal [facility] MCH (RBC) [Entitic mass] 34.0 pg 26 - 34 pg [facility] MCHC (RBC) [Mass/Vol] 34.5 % 32 - 36 % [facility] MCV (RBC) [Entitic vol] 98.7 fL High 80 - 98 fL [facility] Platelet distribution width (Bld) [Ratio] 13.4 % 11.5 - 14.5 % [facility] Platelet mean volume (Bld) [Entitic vol] 8.6 fL 7.4 - 12.4 fL [facility] Comment on above: MPV is a calculated measurement using platelet volume ratio. Platelets (Bld) [#/Vol] 104 10*3/uL Low 140 - 440 10*3/uL [facility] RBC (Bld) [#/Vol] 3.21 10*6/uL Low 4.4 - 5.9 10*6/uL [facility] WBC (Bld) [#/Vol] 3.4 10*3/uL Low 3.6 - 10.7 10*3/uL [facility] Test Performed by [facility], [address] [place], [place] [address] [facility] Comp Metabolic Panelon 06-05 ALP [Catalytic activity/Vol] 58 U/L Normal 38-126 [facility] Comment on above: Performed By: #### B GLU #### [facility] [address] [place] [address] ALT [Catalytic activity/Vol] 191 U/L High 0-49 [facility] Comment on above: Result Comment: The ALT test is performed by an updated assay method. Please note that the reference intervals have been changed and are now sex specific. Performed By: #### B GLU #### [facility] [address] [place] [address] Anion gap [Moles/Vol] 7 mmol/L Normal 3-13 [facility] Comment on above: Performed By: #### B GLU #### [facility] [address] [place] [address] AST [Catalytic activity/Vol] 178 U/L High 15-46 [facility] Comment on above: Performed By: #### B GLU #### [facility] [address] [place] [address] Calcium [Mass/Vol] 8.9 mg/dL Normal 8.4-10.4 [facility] Comment on above: Performed By: #### B GLU #### [facility] [address] [place] [address] CO2 [Moles/Vol] 24 mmol/L Normal 22-30 [facility] Comment on above: Performed By: #### B GLU #### [facility] [address] [place] [address] Glucose [Mass/Vol] 93 mg/dL Normal 70-100 [facility] Comment on above: Performed By: #### B GLU #### [place] [address] [place] [address] Protein [Mass/Vol] 6.2 g/dL Low 6.3-8.2 [facility] Comment on above: Performed By: #### B GLU #### [place] [address] [place] [address] Urea nitrogen [Mass/Vol] 8 mg/dL Normal 7-17 [facility] Comment on above: Performed By: #### B GLU #### [facility] [address] [place] [address] Bilirubin [Mass/Vol] 0.6 mg/dL Normal 0.2-1.3 [facility] Comment on above: Performed By: #### B GLU #### [place] [address] [place] [address] Creatinine [Mass/Vol] 1.19 mg/dL Normal 0.52-1.25 [facility] Comment on above: Performed By: #### B GLU #### [facility] [address] [place] [address] GFR/1.73 sq M.predicted among blacks MDRD (S/P/Bld) [Vol rate/Area] 75.2 mL/min/{1.73_m2} Normal >60 [facility] Comment on above: Performed By: #### B GLU #### [facility] [address] [place] [address] GFR/1.73 sq M.predicted among non-blacks MDRD (S/P/Bld) [Vol rate/Area] 64.9 mL/min/{1.73_m2} Normal >60 [facility] Comment on above: Result Comment: KDIG [...] secretion. Performed By: #### B GLU #### [facility] [address] [place] [address] Albumin [Mass/Vol] 3.7 g/dL Normal 3.5-5.0 [facility] Comment on above: Performed By: #### B GLU #### [facility] [address] [place] [address] Chloride [Moles/Vol] 97 mmol/L Low 98-107 [facility] Comment on above: Performed By: #### B GLU #### [facility] [address] [place] [address] Potassium [Moles/Vol] 4.5 mmol/L Normal 3.5-5.1 [facility] Comment on above: Performed By: #### B GLU #### [facility] [address] [place] [address] Sodium [Moles/Vol] 128 mmol/L Low 135-145 [facility] Comment on above: Performed By: #### B GLU #### [facility] [address] [place] [address] Comprehensive Metabolic Pane peter 06-05-2022 Albumin [Mass/Vol] 3.7 g/dL 3.5 - 5 g/dL [facility] ALP (Bld) [Catalytic activity/Vol] 58 U/L 38 - 126 U/L [facility] ALT [Catalytic activity/Vol] 191 U/L High 0 [...] - 1.25 mg/dL [facility] EGFR IF NonAfrican [place] 64.9 mL/min 60 - PINF mL/min [facility] [...] Interpretation and review of laboratory results Abnormal [facility] Potassium [Moles/Vol] 4.5 mmol/L 3.5 - 5.1 mmol/L [facility] Sodium [Moles/Vol] 128 mmol/L Low 135 - 145 mmol/L [facility] Urea nitrogen (BldV) [Mass/Vol] 8 mg/dL 7 - 17 mg/dL [facility] Test Performed by [facility], [address] [place] [address] [facility] Glucose,Bedsideon 06-05-2022 Glucose [Mass/Vol] 107 mg/dL High 70-100 [facility] Comment on above: Result Comment: Test performed by glucose meter. Results may be 10%-15% lower than serum/plasma values. (CLIA ID [id number]) Performed By: #### B GLU #### [facility] [address] [place] [address] Glucose [Mass/Vol] 94 mg/dL Normal 70-100 [facility] Comment on above: Result Comment: Test performed by glucose meter. Results may be 10%-15% lower than serum/plasma values. (CLIA ID [id number]) Performed By: #### B GLU #### [facility] [address] [place] [address] Glucose [Mass/Vol] 96 mg/dL Normal 70-100 [facility] Comment on above: Result Comment: Test performed by glucose meter. Results may be 10%-15% lower than serum/plasma values. (CLIA ID [id number]) Performed By: #### B GLU #### [facility] [address] [place] [address] Glucose [Mass/Vol] 105 mg/dL High 70-100 [facility] Comment on above: Result Comment: Test performed by glucose meter. Results may be 10%-15% lower than serum/plasma values. (CLIA ID [id number]) Performed By: #### B GLU #### [facility] [address] [place] [address] ENDOSCOPY REPORTon 2021 Ordered by an unspec ified provider. [facility] Hemogramon 06-05-2022 Erythrocyte distribution width (RBC) [Ratio] 13.4 % Normal 11.5-14.5 [facility] Comment on above: Performed By: #### B GLU #### [facility] [address] [place] [address] Hematocrit (Bld) [Volume fraction] 31.7 % Low 40.0-52.0 [facility] Comment on above: Performed By: #### B GLU #### [facility] [address] [place] [address] Hemoglobin (Bld) [Mass/Vol] 10.9 g/dL Low 13.0-18.0 [facility] Comment on above: Performed By: #### B GLU #### [facility] [address] [place] [address] MCH (RBC) [Entitic mass] 34.0 pg Normal 26.0-34.0 [facility] Comment on above: Performed By: #### B GLU #### [facility] [address] [place] [address] MCHC 34.5 % Normal 32.0-36.0 [facility] Comment on above: Performed By: #### B GLU #### [facility] [address] [place] [address] MCV (RBC) [Entitic vol] 98.7 fL High 80.0-98.0 [facility] Comment on above: Performed By: #### B GLU #### [facility] [address] [place] [address] Platelet mean volume (Bld) [Entitic vol] 8.6 fL Normal 7.4-12.4 [facility] Comment on above: Result Comment: MPV is a calculated measurement using platelet volume ratio. Performed By: #### B GLU #### [facility] [address] [place] [address] Platelets (Bld) [#/Vol] 104 10*3/uL Low 140-440 [facility] Comment on above: Performed By: #### B GLU #### [facility] [address] [place] [address] RBC (Bld) [#/Vol] 3.21 10*6/uL Low 4.40-5.90 [facility] Comment on above: Performed By: #### B GLU #### [facility] [address] [place] [address] WBC (Bld) [#/Vol] 3.4 10*3/uL Low 3.6-10.7 [facility] Comment on above: Performed By: #### B GLU #### [facility] [address] [place] [address] POCT GlucoseOrdered By: Елена Yoo on 06-05-2022 Glucose [Mass/Vol] 107 mg/dL High 70 - 100 mg/dL [facility] Work Phone: Comment on above: Test performed by gl ucose meter. Results may be 10%-15% lower than serum/plasma values. (CLIA ID [id number]) Interpretation and review of laboratory results Abnormal [facility] Work Phone: [facility] Work Phone: POCT Glucoseon 06-05-2022 Test Performed by [facility], [address] LAB Glucose [Mass/Vol] 94 mg/dL 70 - 100 mg/dL [facility] Work Phone: Comment on above: Test performed by gl ucose meter. Results may be 10%-15% lower than serum/plasma values. (CLIA ID [id number]) Test Performed by [facility], [address] LAB [facility] Work Phone: Test Performed by [facility], [address] LAB Test Performed by [facility], [address] LAB POCT GlucoseOrdered By: Jennifer Cordova on 06-05-2022 Glucose [Mass/Vol] 96 mg/dL 70 - 100 mg/dL [facility] Comment on above: Test performed by gl ucose meter. Results may be 10%-15% lower than serum/plasma values. (CLIA ID [id number]) [facility] POCT GlucoseOrdered By: Janett frank Carlos Enrique on 06-05-2022 Glucose [Mass/Vol] 105 mg/dL High 70 - 100 mg/dL [facility] Comment on above: Test performed by ucose meter. Results may be 10%-15% lower than serum/plasma values. (CLIA ID [id number]) Interpretation and review of laboratory results Abnormal [facility] Retic Count(%)on 06-05-2022 Retic Count(%) 1.5 Normal [facility] Comment on above: Result Comment: Newb orn < 5% Adults 0.5 - 1.5% Performed By: #### B GLU #### [facility] [address] [place] [address] Reticulocyteson 06-05-[address] Pct 1.5 [facility] Comment on above: [place] < 5% Adults 0.5 - 1.5% Test Performed by [facility], [facility] [address] LAB [facility] Sodiumon 06-05-2022 Interpretation and review of laboratory results Abnormal [facility] Sodium [Moles/Vol] 129 mmol/L Low 135 - 145 mmol/L [facility] Test Performed by [facility], [facility] [address] LAB [facility] Sodium [Moles/Vol] 127 mmol/L Low 135-145 [facility] Comment on above: Performed By: #### N A3 #### [facility] [address] [place] [address] Interpretation and review of laboratory results Abnormal [facility] Sodium [Moles/Vol] 127 mmol/L Low 135 - 145 mmol/L [facility] Test Performed by [facility], [address] LAB [facility] Sodium [Moles/Vol] 126 mmol/L Low 135-145 [facility] Comment on above: Performed By: #### N A3 #### [facility] [address] [place] [address] Interpretation and review of laboratory results Abnormal [facility] Sodium [Moles/Vol] 126 mmol/L Low 135 - 145 mmol/L [facility] Test Performed by [facility], [address] [place], [place] [address] [facility] Sodium [Moles/Vol] 127 mmol/L Low 135-145 [facility] Comment on above: Performed By: #### B GLU #### [facility] [address] [place] [address] Sodium, Ur Randomon 06-05-20 22 Sodium [Moles/Vol] 63 mmol/L Normal 30-90 [facility] Comment on above: Performed By: #### N A3 #### [facility] [address] [place] [address] Sodium, Urine, Randomon 05-19 Sodium (U) [Moles/Vol] 63 mmol/L 30 - 90 mmol/L [facility] Test Performed by [facility], [address] [place], [place] [address] [facility] Surgical Pathologyon 022 Surgical Pathology [id number] [place] [address] [facility] PATHOLOGY AND LABORATORY MEDICINE [address] [place] [address] Fax - FINAL SURGICAL PATHOLOGY REPORT NAME: WOODY NI : 1960 Callie AZAR NO.: [id number] LOCATION: [id number] 1 PROCEDURE 06/05/2022 DATE: SURGEON: ANA CALLAWAY M.D. [...] x 0.2 cm. Submitted in one cassette. BSC/RAMAN Disclaimer: The following statement applies to all immunohistochemistry, in situ hybridization, molecular studies, and immunofluorescence testing. The use of one or more reagents in the above tests is regulated as an analyte specific reagent (ASR). These tests were developed and their performance characteristics determined by the clinical laboratories of [facility]. They have not been cleared by [...] negativity on decalcified specimens. Case reviewed at [place] [address] [place] [address]. DEPARTMENT OF PATHOLOGY AND LABORATORY MEDICINE [place], [place] [address] [email or web address] Normal [facility] Add On Lab Teston 06-04-2022 Add On Rejected [facility] Test Performed by [facility], [address], [place], [place] [address] [facility] Add on test from HISon 06-04 Add on test from HIS Rejected Normal [facility] Comment on above: Performed By: #### B GLU #### [facility] [address] [place] [address] C. difficile toxin Molecular on 06-04-2022 C. difficile toxin Molecular NEGATIVE Methodology - Real Time PCR (Jet) Clinical judgement must be used when interpreting results. Positive results may reflect colonization. Indeterminate results suggest a new specimen be submitted. _ [facility] CBCon 06-04-2022 Hematocrit (Bld) [Volume fraction] 23.4 % Low 40 - 52 % [facility] Hemoglobin (Bld) [Mass/Vol] 8.0 g/dL Low 13 - 18 g/dL [facility] Interpretation and review of laboratory results Abnormal [facility] MCH (RBC) [Entitic mass] 34.5 pg High 26 - 34 pg [facility] MCHC (RBC) [Mass/Vol] 34.3 % 32 - 36 % [facility] MCV (RBC) [Entitic vol] 100.5 fL High 80 - 98 fL [facility] Platelet distribution width (Bld) [Ratio] 13.2 % 11.5 - 14.5 % [facility] Platelet mean volume (Bld) [Entitic vol] 9.2 fL 7.4 - 12.4 fL [facility] Comment on above: MPV is a calculated measurement using platelet volume ratio. Platelets (Bld) [#/Vol] 72 10*3/uL Low 140 - 440 10*3/uL [facility] RBC (Bld) [#/Vol] 2.33 10*6/uL Low 4.4 - 5.9 10*6/uL [facility] WBC (Bld) [#/Vol] 2.4 10*3/uL Low 3.6 - 10.7 10*3/uL [facility] Test Performed by [facility], [address] [place], [place] [address] [place] [address] LAB [facility] CBC with Auto Differentialon 06-04-2022 Hematocrit [...] 3.5 10*3/uL Low 3.6 - 10.7 10*3/uL [facility] Test Performed by [facility], [address] LAB [facility] Clostridium difficile PCRon 06-04-2022 Clostridium difficile PCR [...] a new specimen be submitted. _ Normal [facility] Comment on above: Performed By: #### C DPCR #### , [id number] The performing lab is in the report. Comp Metabolic Panelon 06-04 ALP [Catalytic activity/Vol] 38 U/L Normal 38-126 [facility] Comment on above: Performed By: #### B GLU #### [facility] [address] [place] [address] ALT [Catalytic activity/Vol] 172 U/L High 0-49 [facility] Comment on above: Result Comment: The ALT test is performed by an updated assay method. Please note that the reference intervals have been changed and are now sex specific. Performed By: #### B GLU #### [facility] [address] [place] [address] Anion gap [Moles/Vol] 6 mmol/L Normal 3-13 [facility] Comment on above: Performed By: #### B GLU #### [facility] [address] [place] [address] AST [Catalytic activity/Vol] 177 U/L High 15-46 [facility] Comment on above: Performed By: #### B GLU #### [facility] [address] [place] [address] Bilirubin [Mass/Vol] 0.3 mg/dL Normal 0.2-1.3 [facility] Comment on above: Performed By: #### B GLU #### [facility] [address] [place] [address] Calcium [Mass/Vol] 6.3 mg/dL Low 8.4-10.4 [facility] Comment on above: Performed By: #### B GLU #### [facility] [address] [place] [address] CO2 [Moles/Vol] 16 mmol/L Low 22-30 [facility] Comment on above: Performed By: #### B GLU #### [facility] [address] [place] [address] Glucose [Mass/Vol] 76 mg/dL Normal 70-100 [facility] Comment on above: Performed By: #### B GLU #### [facility] [address] [place] [address] Protein [Mass/Vol] 4.7 g/dL Low 6.3-8.2 [facility] Comment on above: Performed By: #### B GLU #### [facility] [address] [place] [address] Urea nitrogen [Mass/Vol] 4 mg/dL Low 7-17 [facility] Comment on above: Performed By: #### B GLU #### [facility] [address] [place] [address] Creatinine [Mass/Vol] 1.04 mg/dL Normal 0.52-1.25 [facility] Comment on above: Performed By: #### B GLU #### [facility] [address] [place] [address] GFR/1.73 sq M.predicted among blacks MDRD (S/P/Bld) [Vol rate/Area] 88.6 mL/min/{1.73_m2} Normal >60 [facility] Comment on above: Performed By: #### B GLU #### [facility] [address] [place] [address] GFR/1.73 sq M.predicted among non-blacks MDRD (S/P/Bld) [Vol rate/Area] 76.4 mL/min/{1.73_m2} Normal >60 [facility] Comment on above: Result Comment: KDIG [...] secretion. Performed By: #### B GLU #### [facility] [address] [place] [address] Albumin [Mass/Vol] 2.7 g/dL Low 3.5-5.0 [facility] Comment on above: Performed By: #### B GLU #### [facility] [address] [place] [address] Chloride [Moles/Vol] 108 mmol/L High 98-107 [facility] Comment on above: Performed By: #### B GLU #### [facility] [address] [place] [address] Potassium [Moles/Vol] 3.4 mmol/L Low 3.5-5.1 [facility] Comment on above: Performed By: #### B GLU #### [facility] [address] [place] [address] Sodium [Moles/Vol] 130 mmol/L Low 135-145 [facility] Comment on above: Performed By: #### B GLU #### [facility] [address] [place] [address] Comprehensive Metabolic Pane peter 06-04-2022 Albumin [Mass/Vol] 2.7 g/dL Low 3.5 - 5 g/dL [facility] A ALP (Bld) [Catalytic activity/Vol] 38 U/L 38 - 126 U/L [facility] ALT [Catalytic activity/Vol] 172 U/L High 0 - 49 U/L [facility] Comment on above: The ALT test is [...] - 1.25 mg/dL [facility] EGFR IF NonAfrican [place]ian 76.4 mL/min 60 - PINF mL/min [facility] [...] [Mass/Vol] 76 mg/dL 70 - 100 mg/dL [facility] Interpretation and review of laboratory results Abnormal [facility] Potassium [Moles/Vol] 3.4 mmol/L Low 3.5 - 5.1 mmol/L [facility] Sodium [Moles/Vol] 130 mmol/L Low 135 - 145 mmol/L [facility] Urea nitrogen (BldV) [Mass/Vol] 4 mg/dL Low 7 - 17 mg/dL [facility] Test Performed by [address] LAB [facility] EKG 12 Lead - Chest Painon 0 06-04-2022 [facility] Test Date: 2022-06-03 Pat Name: WOODY NI Department: EMERGENCY Room: 243 Gender: M 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: [id number] : 1960 Requested By: DANIEL EWING Order Number: [id number] Reading MD: Khurram Bob Measurements Intervals [place] Rate: 75 P: 0 WV: 159 QRS: -32 QRSD: 141 T: 11 QT: 412 QTc: 459 Interpretive Statements Sinus rhythm Right bundle branch block No previous ECG available for comparison Electronically Signed On 06-04-2022 7:11:00 EDT by Khurram Bob [facility] CARDIOLOGY Khurram Bob MD - 06/04/2022 [facility] Test Date: 2022-06-03 Pat Name: WOODY NI Department: EMERGENCY Room: 243 Gender: M 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: [id number] : 1960 Requested By: DANIEL EWING Order Number: [id number] Reading MD: Khurram Bob Measurements Intervals [place] Rate: 75 P: 0 WV: 159 QRS: -32 QRSD: 141 T: 11 QT: 412 QTc: 459 Interpretive Statements Sinus rhythm Right bundle branch block No previous ECG available for comparison Electronically Signed On 06-04-2022 7:11:00 EDT by Khurram Bob [employer] Work Phone: EKG 12 Lead - Chest PainOrde red By: Khurram Bob on 06-04-2022 [employer] Work Phone: Ferritinon 06-04-2022 Ferritin [Mass/Vol] 981 ng/mL High 18-464 [facility] Comment on above: Performed By: #### N A3 #### [facility] [address] [place] [address] Ferritin [Mass/Vol] 981 ng/mL High 18 - 464 ng/mL [facility] Interpretation and review of laboratory results Abnormal [facility] Test Performed by [facility], [address] [place], [place] [address] [facility] GASTROINTESTINAL PCR PANELon 06-04-2022 GASTROINTESTINAL PCR PANEL GASTROINTESTINAL PCR PANEL --> Status: F NEGATIVE: No targets were detected by the [employer] Gastrointestinal PCR Panel. _ The [employer] Gastrointestinal PCR Panel can detect the following targets: Campylobacter, Plesiomonas shigelloides, Salmonella, Vibrio species, Vibrio cholerae, Yersinia enterocolitica, Shiga toxin-producing E coli (STEC) including E coli O157, Enterotoxigenic E coli (ETEC), Shigella/Enteroinvasive E coli (EIEC), Cryptosporidium, Cyclospora cayetanensis, Entamoeba histolytica, Giardia lamblia, Adenovirus F 40/41, Astrovirus, Norovirus GI/GII, Rotavirus A, Sapovirus Gastrointestinal PCR Panel. _ The [employer] Gastrointestinal PCR Panel can detect the following targets: Campylobacter, Plesiomonas shigelloides, Salmonella, Vibrio species, Vibrio cholerae, Yersinia enterocolitica, Shiga toxin-producing E coli (STEC) including E coli O157, Enterotoxigenic E coli (ETEC), Shigella/Enteroinvasive E coli (EIEC), Cryptosporidium, Cyclospora cayetanensis, Entamoeba histolytica, Giardia lamblia, Adenovirus F 40/41, Astrovirus, Norovirus GI/GII, Rotavirus A, Sapovirus Normal [facility] Comment on above: Performed By: #### B FGI #### [address] [address] Gastrointestinal Panel by GARRY [facility] 06-04-2022 Gastrointestinal PCR Panel NEGATIVE: No targets were detected by the [employer] Gastrointestinal PCR Panel. _ The [employer] Gastrointestinal PCR Panel can detect the following targets: Campylobacter, Plesiomonas shigelloides, Salmonella, Vibrio species, Vibrio cholerae, Yersinia enterocolitica, Shiga toxin-producing E coli (STEC) including E coli O157, Enterotoxigenic E coli (ETEC), Shigella/Enteroinvasive E coli (EIEC), Cryptosporidium, Cyclospora cayetanensis, Entamoeba histolytica, Giardia lamblia, Adenovirus F 40/41, Astrovirus, Norovirus GI/GII, Rotavirus A, Sapovirus [facility] Test Performed by [facility], [address] [place] [id number] [place] [address] LAB Glucose,Bedsideon 06-04-2022 Glucose [Mass/Vol] 89 mg/dL Normal 70-100 [facility] Comment on above: Result Comment: Test performed by glucose meter. Results may be 10%-15% lower than serum/plasma values. (CLIA ID [id number]) Performed By: #### N A3 #### [facility] [address] [place] [address] Glucose [Mass/Vol] 104 mg/dL High 70-100 [facility] Comment on above: Result Comment: Test performed by glucose meter. Results may be 10%-15% lower than serum/plasma values. (CLIA ID [id number]) Performed By: #### N A3 #### [facility] [address] [place] [address] Glucose [Mass/Vol] 122 mg/dL High 70-100 [facility] Comment on above: Result Comment: Test performed by glucose meter. Results may be 10%-15% lower than serum/plasma values. (CLIA ID [id number]) Performed By: #### N A3 #### [facility] [address] [place] [address] Glucose [Mass/Vol] 100 mg/dL Normal 70-100 [facility] Comment on above: Result Comment: Test performed by glucose meter. Results may be 10%-15% lower than serum/plasma values. (CLIA ID [id number]) Performed By: #### B GLU #### [facility] [address] [place] [address] Hemoglobin A1Con 06-04-2022 Glucose [Mass/Vol] 94 mg/dL Normal [facility] Comment on above: Performed By: #### H A1C2 #### [facility] [address] [place] [address] HbA1c (Bld) [Mass fraction] 4.9 % Normal [facility] Comment on above: Result Comment: Norm al less than 5.7% Prediabetes 5.7% to 6.4% Diabetes 6.5% or higher --HgbA1C levels may not be accurate in patients who have renal disease, received recent blood transfusions, are anemic, or who have dyshemoglobinemia. Performed By: #### H A1C2 #### [place] [address] [place] [address] Hemoglobin A1con 06-04-2022 HbA1c (Bld) [Mass fraction] 4.9 % [facility] Comment on above: Normal less than 5.7 % Prediabetes 5.7% to 6.4% Diabetes 6.5% or higher --HgbA1C levels may not be accurate in patients who have renal disease, received recent blood transfusions, are anemic, or who have dyshemoglobinemia. Magnesium [Mass/Vol] 94 mg/dL [facility] Test Performed by [facility], [address] [facility] [place], [place] [address] [facility] Hemogramon 06-04-2022 Erythrocyte distribution width (RBC) [Ratio] 13.2 % Normal 11.5-14.5 [facility] Comment on above: Performed By: #### B GLU #### [facility] [address] [place] [address] Hematocrit (Bld) [Volume fraction] 23.4 % Low 40.0-52.0 [facility] Comment on above: Performed By: #### B GLU #### [facility] [address] [place] [address] Hemoglobin (Bld) [Mass/Vol] 8.0 g/dL Low 13.0-18.0 [facility] Comment on above: Performed By: #### B GLU #### [facility] [address] [place] [address] MCH (RBC) [Entitic mass] 34.5 pg High 26.0-34.0 [facility] Comment on above: Performed By: #### B GLU #### [facility] [address] [place] [address] MCHC 34.3 % Normal 32.0-36.0 [facility] Comment on above: Performed By: #### B GLU #### [facility] [address] [place] [address] MCV (RBC) [Entitic vol] 100.5 fL High 80.0-98.0 [facility] Comment on above: Performed By: #### B GLU #### [facility] [address] [place] [address] Platelet mean volume (Bld) [Entitic vol] 9.2 fL Normal 7.4-12.4 [facility] Comment on above: Result Comment: MPV is a calculated measurement using platelet volume ratio. Performed By: #### B GLU #### [facility] [address] [place] [address] Platelets (Bld) [#/Vol] 72 10*3/uL Low 140-440 [facility] Comment on above: Performed By: #### B GLU #### [facility] [address] [place] [address] RBC (Bld) [#/Vol] 2.33 10*6/uL Low 4.40-5.90 [facility] Comment on above: Performed By: #### B GLU #### [facility] [address] [place] [address] WBC (Bld) [#/Vol] 2.4 10*3/uL Low 3.6-10.7 [facility] Comment on above: Performed By: #### B GLU #### [facility] [address] [place] [address] Hemogram w/ Autodiffon 06-04 Erythrocyte distribution width (RBC) [Ratio] 13.3 % Normal 11.5-14.5 [facility] Comment on above: Performed By: #### N A3 #### [facility] [address] [place] [address] Hematocrit (Bld) [Volume fraction] 30.5 % Low 40.0-52.0 [facility] Comment on above: Performed By: #### N A3 #### [facility] [address] [place] [address] Hemoglobin (Bld) [Mass/Vol] 10.5 g/dL Low 13.0-18.0 [facility] Comment on above: Performed By: #### N A3 #### [facility] [address] [place] [address] MCH (RBC) [Entitic mass] 34.3 pg High 26.0-34.0 [facility] Comment on above: Performed By: #### N A3 #### [facility] [address] [place] [address] MCHC 34.5 % Normal 32.0-36.0 [facility] Comment on above: Performed By: #### N A3 #### [facility] [address] [place] [address] MCV (RBC) [Entitic vol] 99.5 fL High 80.0-98.0 [facility] Comment on above: Performed By: #### N A3 #### [facility] [address] [place] [address] Platelet mean volume (Bld) [Entitic vol] 9.0 fL Normal 7.4-12.4 [facility] Comment on above: Result Comment: MPV is a calculated measurement using platelet volume ratio. Performed By: #### N A3 #### [facility] [address] [place] [address] Platelets (Bld) [#/Vol] 98 10*3/uL Low 140-440 [facility] Comment on above: Performed By: #### N A3 #### [facility] [address] [place] [address] RBC (Bld) [#/Vol] 3.07 10*6/uL Low 4.40-5.90 [facility] Comment on above: Performed By: #### N A3 #### [facility] [address] [place] [address] WBC (Bld) [#/Vol] 3.5 10*3/uL Low 3.6-10.7 [facility] Comment on above: Performed By: #### N A3 #### [facility] [address] [place] [address] Hepatic Functionon 2 ALP [Catalytic activity/Vol] 52 U/L Normal 38-126 [facility] Comment on above: Performed By: #### N A3 #### [facility] [address] [place] [address] ALT [Catalytic activity/Vol] 182 U/L High 0-49 [facility] Comment on above: Result Comment: The ALT test is performed by an updated assay method. Please note that the reference intervals have been changed and are now sex specific. Performed By: #### N A3 #### [facility] [address] [place] [address] AST [Catalytic activity/Vol] 192 U/L High 15-46 [facility] Comment on above: Performed By: #### N A3 #### [facility] [address] [place] [address] Bilirubin [Mass/Vol] 0.4 mg/dL Normal 0.2-1.3 [facility] Comment on above: Performed By: #### N A3 #### [facility] [address] [place] [address] Bilirubin.indirect [Mass/Vol] 0.0 mg/dL Normal 0.0-0.3 [facility] Comment on above: Performed By: #### N A3 #### [facility] [address] [place] [address] Protein [Mass/Vol] 5.8 g/dL Low 6.3-8.2 [facility] Comment on above: Performed By: #### N A3 #### [facility] [address] [place] [address] Albumin [Mass/Vol] 3.6 g/dL Normal 3.5-5.0 [facility] Comment on above: Performed By: #### N A3 #### [facility] [address] [place] [address] Hepatic Function Panelon Albumin [Mass/Vol] 3.6 g/dL 3.5 - 5 g/dL [facility] A ALP (Bld) [Catalytic activity/Vol] 52 U/L 38 - 126 U/L [facility] ALT [Catalytic activity/Vol] 182 U/L High 0 - 49 U/L [facility] Comment on above: The ALT test is perf ormed by an updated assay method. Please note that the reference intervals have been changed and are now sex specific. AST [Catalytic activity/Vol] 192 U/L High 15 - 46 U/L [facility] Bilirubin [Mass/Vol] 0.4 mg/dL 0.2 - 1 .3 mg/dL [facility] Bilirubin.indirect [Mass/Vol] 0.0 mg/dL 0 - 0.3 mg/dL [facility] Free PSA/Total PSA [Mass fraction] 5.8 g/dL Low 6.3 - 8.2 g/dL [facility] Interpretation and review of laboratory results Abnormal [facility] Iron AND TIBCon 06-04-2022 Saturation 55 % High 15-50 [facility] Comment on above: Performed By: #### N A3 #### [facility] [address] [place] [address] Total Iron Binding Cap. 216 ug/dL Low 261-497 [facility] Comment on above: Performed By: #### N A3 #### [facility] [address] [place] [address] Iron, Total 119 ug/dL Normal 49-181 [facility] Comment on above: Performed By: #### N A3 #### [facility] [address] [place] [address] Iron and TIBCon 06-04-2022 Interpretation and review of laboratory results Abnormal [facility] Iron [Mass/Vol] 119 ug/dL 49 - 181 ug/dL [facility] Sat 55 % High 15 - 50 % [facility] TIBC 216 ug/dL Low 261 - 497 ug/dL [facility] Test Performed by [facility], [address] [place] [address] [facility] Lipaseon 06-04-2022 Lipase [Catalytic activity/Vol] 99 U/L Normal 23-300 [facility] Comment on above: Performed By: #### N A3 #### [facility] [address] [place] [address] Lipase [Catalytic activity/Vol] 99 U/L 23 - 300 U/L [facility] Manual Diffon 06-04-2022 Abs Eosin Cnt 0.1 10*3/uL Normal 0.0-0.5 [facility] Comment on above: Performed By: #### N A3 #### [facility] [address] [place] [address] Abs Lymph Cnt 0.9 10*3/uL Low 1.1-4.5 [facility] Comment on above: Performed By: #### N A3 #### [facility] [address] [place] [address] Abs Monocyte Cnt 0.3 10*3/uL Normal 0.2-1.1 [facility] Comment on above: Performed By: #### N A3 #### [facility] [address] [place] [address] Abs Neutrophile Cnt 2.2 10*3/uL Normal 2.2-8.2 [facility] Comment on above: Performed By: #### N A3 #### [facility] [address] [place] [address] Eosinophils 3 % Normal 1-6 [facility] Comment on above: Performed By: #### N A3 #### [facility] [address] [place] [address] Hypochromia Slight Normal [facility] Comment on above: Performed By: #### N A3 #### [facility] [address] [place] [address] Lymphocytes 26 % Normal 20-40 [facility] Comment on above: Performed By: #### N A3 #### [facility] [address] [place] [address] Monocytes 8 % Normal 2-10 [facility] Comment on above: Performed By: #### N A3 #### [facility] [address] [place] [address] RBC Morphology ABNORMAL Normal [facility] Comment on above: Performed By: #### N A3 #### [facility] [address] [place] [address] Seg Neutrophils 63 % Normal 40-80 [facility] Comment on above: Performed By: #### N A3 #### [facility] [address] [place] [address] Abs Baso Cnt 0.0 10*3/uL Normal 0.0-0.2 [facility] Comment on above: Performed By: #### N A3 #### [facility] [address] [place] [address] Bands 0 % Normal 0-3 [facility] Comment on above: Performed By: #### N A3 #### [facility] [address] [place] [address] Basophils 0 % Normal 0-2 [facility] Comment on above: Performed By: #### N A3 #### [facility] [address] [place] [address] Cells counted 100 Normal [facility] Comment on above: Performed By: #### N A3 #### [facility] [address] [place] [address] Manual Differentialon 2021 Absolute Baso # 0.0 10*3/uL 0 - 0.2 10*3/uL [facility] Absolute Eos # 0.1 10*3/uL 0 - 0.5 10*3/uL [facility] Absolute Lymph # 0.9 10*3/uL Low 1.1 - 4.5 10*3/uL [facility] Absolute [place] # 0.3 10*3/uL 0.2 - 1.1 10*3/uL [...] CELLS COUNTED 100 [facility] Test Performed by [facility], [address] LAB [facility] No Panel Informationon 06-04 [facility] Test Performed by [facility], [facility] [address] LAB [facility] Interpretation and review of laboratory results Abnormal [facility] Test Performed by [facility], [facility] [address] LAB [facility] Osmolalityon 06-04-2022 Serum Osmolality 265 mosm/kg Low 280 - 300 mosm/kg [facility] Osmolality,Serumon 2 Osmolality,Serum 265 mosm/kg Low 280-300 [facility] Comment on above: Performed By: #### B GLU #### [facility] [address] [place] [address] POCT GlucoseOrdered By: Alexander Walsh on 06-04-2022 Glucose [Mass/Vol] 89 mg/dL 70 - 100 mg/dL [facility] Work Phone: Comment on above: Test performed by gl ucose meter. Results may be 10%-15% lower than serum/plasma values. (CLIA ID [id number]) [facility] Work Phone: POCT Glucoseon 06-04-2022 Test Performed by [facility], [address] LAB Glucose [Mass/Vol] 104 mg/dL High 70 - 100 mg/dL [facility] Work Phone: Comment on above: Test performed by gl ucose meter. Results may be 10%-15% lower than serum/plasma values. (CLIA ID [id number]) Interpretation and review of laboratory results Abnormal [facility] Work Phone: Test Performed by [facility], [address], [address] LAB [facility] Work Phone: Test Performed by [facility], [address], [address] LAB Test Performed by [facility], [address], [address] LAB POCT GlucoseOrdered By: Carter Scott on 06-04-2022 Glucose [Mass/Vol] 122 mg/dL High 70 - 100 mg/dL [employer] Work Phone: Comment on above: Test performed by gl ucose meter. Results may be 10%-15% lower than serum/plasma values. (CLIA ID [id number]) Interpretation and review of laboratory results Abnormal [employer] Work Phone: [facility] Work Phone: POCT GlucoseOrdered By: Arabella Robert on 06-04-2022 Glucose [Mass/Vol] 100 mg/dL 70 - 100 mg/dL [employer] Work Phone: Comment on above: Test performed by gl ucose meter. Results may be 10%-15% lower than serum/plasma values. (CLIA ID [id number]) [employer] Work Phone: Prothrombin Timeon 2 INR 1.3 High 0.9-1.1 [facility] [employer] Comment on above: Result Comment: Fantasma mmended [...] Infarction Performed By: #### B GLU #### [facility] [address] [place] [address] PT Coag (PPP) [Time] 13.8 s High 9.0-12.0 [facility] Comment on above: Result Comment: . Performed By: #### B GLU #### [facility] [address] [place] [address] Protime-INRon 06-04-2022 INR Coag (Bld) [Relative time] 1.3 {INR} High [facility] Comment on above: Recommended Anticoag ulant Therapy: [...] 13.8 s High 9 - 12 s [facility] Comment on above: . Sodiumon 06-04-2022 Interpretation and review of laboratory results Abnormal [facility] Sodium [Moles/Vol] 127 mmol/L Low 135 - 145 mmol/L [facility] Test Performed by [facility], [facility] [address] LAB [facility] Sodium [Moles/Vol] 125 mmol/L Low 135-145 [facility] Comment on above: Performed By: #### B GLU #### [facility] [address] [place] [address] Interpretation and review of laboratory results Abnormal [facility] Sodium [Moles/Vol] 125 mmol/L Low 135 - 145 mmol/L [facility] Test Performed by [facility], [address] LAB [facility] Sodium [Moles/Vol] 127 mmol/L Low 135-145 [facility] Comment on above: Performed By: #### B GLU #### [facility] [address] [place] [address] Interpretation and review of laboratory results Abnormal [facility] Sodium [Moles/Vol] 127 mmol/L Low 135 - 145 mmol/L [facility] Test Performed by [facility] [address] [place], [place] [id number] [place] [address] LAB [facility] TSHon 06-04-2022 TSH Qn 2.601 u[IU]/mL 0.465 - 4.68 u[IU]/mL [facility] Test Performed by [facility], [address] LAB [facility] Thyroid Stim. Hormoneon 05-19 Thyroid Stim. Hormone 2.601 u[IU]/mL Normal 0.465-4.68 0 [facility] Comment on above: Performed By: #### N A3 #### [facility] [address] [place] [address] Vitamin B12on 06-04-2022 Cobalamin (Vitamin B12) [Mass/Vol] 725 pg/mL Normal 239-931 [facility] Comment on above: Performed By: #### N A3 #### [facility] [address] [place] [address] Cobalamin (Vitamin B12) [Mass/Vol] 725 pg/mL 239 - 931 pg/mL [facility] Test Performed by [facility], [facility] [address] LAB [facility] CBC with Auto Differentialon [...] 36.2 % High 32 - 36 % [facility] MCV (RBC) [Entitic vol] 95.1 fL 80 [...] [#/Vol] 4.0 10*3/uL 3.6 - 10.7 10*3/uL [facility] Test Performed by [facility], [address] , [place], [place] [id number] [place] [address] LAB [facility] Comp Metabolic Panelon 06-03 Albumin [Mass/Vol] 4.0 g/dL Normal 3.5-5.0 [facility] Comment on above: Performed By: #### B GLU #### [facility] [address] [place] [address] ALP [Catalytic activity/Vol] 49 U/L Normal 38-126 [facility] Comment on above: Performed By: #### B GLU #### [facility] [address] [place] [address] ALT [Catalytic activity/Vol] 227 U/L High 0-49 [facility] Comment on above: Result Comment: The ALT test is performed by an updated assay method. Please note that the reference intervals have been changed and are now sex specific. Performed By: #### B GLU #### [facility] [address] [place] [address] Anion gap [Moles/Vol] 13 mmol/L Normal 3-13 [facility] Comment on above: Performed By: #### B GLU #### [facility] [address] [place] [address] AST [Catalytic activity/Vol] 288 U/L High 15-46 [facility] Comment on above: Performed By: #### B GLU #### [facility] [address] [place] [address] Bilirubin [Mass/Vol] 0.6 mg/dL Normal 0.2-1.3 [facility] Comment on above: Performed By: #### B GLU #### [facility] [address] [place] [address] Calcium [Mass/Vol] 8.6 mg/dL Normal 8.4-10.4 [facility] Comment on above: Performed By: #### B GLU #### [facility] [address] [place] [address] Chloride [Moles/Vol] 92 mmol/L Low 98-107 [facility] Comment on above: Performed By: #### B GLU #### [facility] [address] [place] [address] CO2 [Moles/Vol] 14 mmol/L Low 22-30 [facility] Comment on above: Performed By: #### B GLU #### [facility] [address] [place] [address] Creatinine [Mass/Vol] 1.66 mg/dL High 0.52-1.25 [facility] Comment on above: Performed By: #### B GLU #### [facility] [address] [place] [address] GFR/1.73 sq M.predicted among blacks MDRD (S/P/Bld) [Vol rate/Area] 50.3 mL/min/{1.73_m2} Abnormal >60 [facility] Comment on above: Performed By: #### B GLU #### [facility] [address] [place] [address] GFR/1.73 sq M.predicted among non-blacks MDRD (S/P/Bld) [Vol rate/Area] 43.4 mL/min/{1.73_m2} Abnormal >60 [facility] Comment on above: Result Comment: KDIG [...] secretion. Performed By: #### B GLU #### [facility] [address] [place] [address] Glucose [Mass/Vol] 114 mg/dL High 70-100 [facility] Comment on above: Performed By: #### B GLU #### [facility] [address] [place] [address] Potassium [Moles/Vol] 4.2 mmol/L Normal 3.5-5.1 [facility] Comment on above: Performed By: #### B GLU #### [facility] [address] [place] [address] Protein [Mass/Vol] 6.5 g/dL Normal 6.3-8.2 [facility] Comment on above: Performed By: #### B GLU #### [facility] [address] [place] [address] Sodium [Moles/Vol] 119 mmol/L Critically low 135-145 [facility] Comment on above: Performed By: #### B GLU #### [facility] [address] [place] [address] Urea nitrogen [Mass/Vol] 8 mg/dL Normal 7-17 [facility] Comment on above: Performed By: #### B GLU #### [facility] [address] [place] [address] Complete Urinalysison 2021 VOLUME, URINE 12 ml Normal [facility] Comment on above: Result Comment: . Performed By: #### B GLU #### [facility] [address] [place] [address] Appearance (U) Clear Normal Clear [facility] Comment on above: Result Comment: . Performed By: #### B GLU #### [facility] [address] [place] [address] Bilirubin,Urine Negative Normal Negative [facility] Comment on above: Result Comment: . Performed By: #### B GLU #### [facility] [address] [place] [address] Color (U) LIGHT YELLOW Normal Lt. Yellow [facility] Comment on above: Result Comment: . Performed By: #### B GLU #### [facility] [address] [place] [address] Glucose Ql (U) Normal Normal Normal (<70) [facility] Comment on above: Result Comment: . Performed By: #### B GLU #### [facility] [address] [place] [address] Ketone,Urine Negative Normal Negative [facility] Comment on above: Result Comment: . Performed By: #### B GLU #### [facility] [address] [place] [address] Leukocytes,Urine Negative Normal Negative [facility] Comment on above: Result Comment: . Performed By: #### B GLU #### [facility] [address] [place] [address] Nitrites,Urine Negative Normal Negative [facility] Comment on above: Result Comment: . Performed By: #### B GLU #### [facility] [address] [place] [address] Occult Blood,Urine Negative Normal Negative [facility] Comment on above: Result Comment: . Performed By: #### B GLU #### [facility] [address] [place] [address] pH,Urine 5.5 Normal 5.0-8.0 [facility] Comment on above: Result Comment: . Performed By: #### B GLU #### [facility] [address] [place] [address] Specific [place],Urine 1.007 Normal 1.005 - 1.030 [facility] Comment on above: Result Comment: . Performed By: #### B GLU #### [facility] [address] [place] [address] Total Protein,Urine Negative Normal Negative [facility] Comment on above: Result Comment: . Performed By: #### B GLU #### [facility] [address] [place] [address] Urobilinogen,Urine Normal Normal Normal (0-1) [facility] Comment on above: Result Comment: . Performed By: #### B GLU #### [facility] [address] [place] [address] Comprehensive Metabolic Pane peter 06-03-2022 Albumin [Mass/Vol] [...] - 1.25 mg/dL [facility] EGFR IF NonAfrican [place]ian 43.4 mL/min Abnormal 60 - PINF mL/min [...] 114 mg/dL High 70 - 100 mg/dL [facility] Interpretation and review of laboratory results Abnormal [facility] Potassium [Moles/Vol] 4.2 mmol/L 3.5 - 5.1 mmol/L [facility] Sodium [Moles/Vol] 119 mmol/L Critically low 135 - 1 45 mmol/L [facility] Urea nitrogen (BldV) [Mass/Vol] 8 mg/dL 7 - 17 mg/dL [facility] Ethanolon 06-03-2022 Ethanol Lvl 0.132 g/dL High 0 - 0.01 g/dL [facility] Comment on above: NOTE: This result is for medical treatment only. Analysis performed using non-forensic procedures. Interpretation and review of laboratory results Abnormal [facility] Test Performed by [facility], [address] , [address] LAB [facility] Ethanol Serum/Plasmaon 06-03 Ethanol-Serum/Plasma 0.132 g/dL High 0.000-0.010 [facility] Comment on above: Result Comment: NOTE : This result is for medical treatment only. Analysis performed using non-forensic procedures. Performed By: #### B GLU #### [facility] [address] [place] [address] Hemogram w/ Autodiffon 06-03 Abs Baso Cnt 0.0 10*3/uL Normal 0.0-0.2 [facility] Comment on above: Performed By: #### B GLU #### [facility] [address] [place] [address] Abs Neutrophile Cnt 2.0 10*3/uL Normal 1.8-7.0 [facility] Comment on above: Performed By: #### B GLU #### [facility] [address] [place] [address] Basophils/100 WBC (Bld) 0.5 % Normal 0.0-2.0 [facility] Comment on above: Performed By: #### B GLU #### [place] [address] [place] [address] Eosinophils (Bld) [#/Vol] 0.2 10*3/uL Normal 0.0-0.5 [facility] Comment on above: Performed By: #### B GLU #### [facility] [address] [place] [address] Eosinophils/100 WBC (Bld) 4.5 % Normal 1.0-6.0 [facility] Comment on above: Performed By: #### B GLU #### [facility] [address] [place] [address] Erythrocyte distribution width (RBC) [Ratio] 42.4 % High 11.5-14.5 [facility] Comment on above: Performed By: #### B GLU #### [place] [address] [place] [address] Granulocytes/100 WBC (Bld) 50.8 % Normal 40.0-80.0 [facility] Comment on above: Performed By: #### B GLU #### [facility] [address] [place] [address] Hematocrit (Bld) [Volume fraction] 29.3 % Low 40.0-52.0 [facility] Comment on above: Performed By: #### B GLU #### [place] [address] [place] [address] Hemoglobin (Bld) [Mass/Vol] 10.6 g/dL Low 13.0-18.0 [facility] Comment on above: Performed By: #### B GLU #### [facility] [address] [place] [address] Lymphocytes (Bld) [#/Vol] 1.4 10*3/uL Normal 1.0-4.3 [facility] Comment on above: Performed By: #### B GLU #### [facility] [address] [place] [address] Lymphocytes/100 WBC (Bld) 34.8 % Normal 20.0-40.0 [facility] Comment on above: Performed By: #### B GLU #### [facility] [address] [place] [address] MCH (RBC) [Entitic mass] 34.4 pg High 26.0-34.0 [facility] Comment on above: Performed By: #### B GLU #### [facility] [address] [place] [address] MCHC 36.2 % High 32.0-36.0 [facility] Comment on above: Performed By: #### B GLU #### [facility] [address] [place] [address] MCV (RBC) [Entitic vol] 95.1 fL Normal 80.0-98.0 [facility] Comment on above: Performed By: #### B GLU #### [facility] [address] [place] [address] Monocytes (Bld) [#/Vol] 0.4 10*3/uL Normal 0.0-0.8 [facility] Comment on above: Performed By: #### B GLU #### [facility] [address] [place] [address] Monocytes/100 WBC (Bld) 8.7 % Normal 2.0-10.0 [facility] Comment on above: Performed By: #### B GLU #### [facility] [address] [place] [address] Platelet mean volume (Bld) [Entitic vol] 11.3 fL Normal 7.4-12.4 [facility] Comment on above: Result Comment: MPV is a calculated measurement using platelet volume ratio. Performed By: #### B GLU #### [facility] [address] [place] [address] Platelets (Bld) [#/Vol] 91 10*3/uL Low 140-440 [facility] Comment on above: Result Comment: Slid e scanned - slight thrombocytopenia Performed By: #### B GLU #### [facility] [address] [place] [address] RBC (Bld) [#/Vol] 3.08 10*6/uL Low 4.40-5.90 [facility] Comment on above: Performed By: #### B GLU #### [facility] [address] [place] [address] WBC (Bld) [#/Vol] 4.0 10*3/uL Normal 3.6-10.7 [facility] Comment on above: Performed By: #### B GLU #### [facility] [address] [place] [address] Lipaseon 06-03-2022 Lipase [Catalytic activity/Vol] 142 U/L Normal 23-300 [facility] Comment on above: Performed By: #### B GLU #### [facility] [address] [place] [address] Lipase [Catalytic activity/Vol] 142 U/L 23 - 300 U/L [facility] No Panel Informationon 06-03 Test Performed by [facility], [address] [place], [place] [id number] [place] [address] LAB [facility] Troponin Ion 06-03-2022 Troponin I.cardiac [Mass/Vol] ng/mL Normal 0.000-0.034 [facility] Comment on above: Result Comment: . Performed By: #### B GLU #### [facility] [address] [place] [address] Troponin x1on 06-03-2022 Troponin I.cardiac [Mass/Vol] ng/mL 0 - 0.034 ng/mL [facility] Comment on above: . Urinalysison 06-03-2022 Appearance (U) Clear Clear NA [facility] Comment on above: . Bilirubin Urine Negative Negative mg/dL [facility] Comment on above: . Color (U) LIGHT [...] . Occult Blood,Urine Negative Negative mg/dL [facility] Comment on above: . pH (U) 5.5 [pH] [facility] Comment on above: . Specific [place], Urine 1.007 [facility] Comment on above: . Total Protein, Urine Negative Negativ e mg/dL [facility] Comment on above: . Urobilinogen, Urine Normal Normal ( 0-1) mg/dL [facility] Comment on above: . Volume 12 ml [facility] Comment on above: . Test Performed by [facility], [address] , [address] LAB [facility] Basic Metabolic Panelon 04-19 Calcium [Mass/Vol] 9.3 mg/dL Normal 8.4-10.4 [facility] Comment on above: Performed By: #### N A3 #### [facility] [address] [place] [address] Glucose [Mass/Vol] 99 mg/dL Normal 70-100 [facility] Comment on above: Performed By: #### N A3 #### [facility] [address] [place] [address] Urea nitrogen [Mass/Vol] 5 mg/dL Low 7-17 [facility] Comment on above: Performed By: #### N A3 #### [facility] [address] [place] [address] Anion gap [Moles/Vol] 18 mmol/L High 3-13 [facility] Comment on above: Performed By: #### N A3 #### [facility] [address] [place] [address] CO2 [Moles/Vol] 12 mmol/L Low 22-30 [facility] Comment on above: Performed By: #### N A3 #### [facility] [address] [place] [address] Creatinine [Mass/Vol] 1.40 mg/dL High 0.52-1.25 [facility] Comment on above: Performed By: #### N A3 #### [facility] [address] [place] [address] GFR/1.73 sq M.predicted among blacks MDRD (S/P/Bld) [Vol rate/Area] 61.8 mL/min/{1.73_m2} Normal >60 [facility] Comment on above: Performed By: #### N A3 #### [facility] [address] [place] [address] GFR/1.73 sq M.predicted among non-blacks MDRD (S/P/Bld) [Vol rate/Area] 53.4 mL/min/{1.73_m2} Abnormal >60 [facility] Comment on above: Result Comment: KDIG [...] secretion. Performed By: #### N A3 #### [facility] [address] [place] [address] Potassium [Moles/Vol] 3.5 mmol/L Normal 3.5-5.1 [facility] Comment on above: Performed By: #### N A3 #### [facility] [address] [place] [address] Sodium [Moles/Vol] 137 mmol/L Normal 135-145 [facility] Comment on above: Performed By: #### N A3 #### [facility] [address] [place] [address] Chloride [Moles/Vol] 107 mmol/L Normal 98-107 [facility] Comment on above: Performed By: #### N A3 #### [facility] [address] [place] [address] Anion gap [Moles/Vol] 18 mmol/L High 3 - 13 mmol/L [facility] Work Phone: [phone] Calcium [Mass/Vol] 9.3 mg/dL 8.4 - 10. 4 mg/dL [facility] Work Phone: [phone] Chloride [Moles/Vol] 107 mmol/L 98 - 10 7 mmol/L [facility] Work Phone: [phone] CO2 [Moles/Vol] 12 mmol/L Low 22 - 30 mmol/L [facility] Work Phone: [phone] Creatinine [Mass/Vol] 1.4 mg/dL High 0.52 - 1.25 mg/dL [facility] Work Phone: EGFR IF NonAfrican Z[place]ian 53.4 mL/min Abnormal 60 - PINF mL/min [facility] Work Phone: Comment on above: KDIGO guidelines pro vide [...] rate/Area] 61.8 mL/min/{1.73_m2} 60 - PINF mL/min [facility] Work Phone: Glucose [Mass/Vol] 99 mg/dL 70 - 100 mg/dL [facility] Work Phone: Interpretation and review of laboratory results Abnormal [facility] Work Phone: [phone] Potassium [Moles/Vol] 3.5 mmol/L 3.5 - 5.1 mmol/L [facility] Work Phone: Sodium [Moles/Vol] 137 mmol/L 135 - 145 mmol/L [facility] Work Phone: Urea nitrogen (BldV) [Mass/Vol] 5 mg/dL Low 7 - 17 mg/dL [facility] Work Phone: Test Performed by [facility], [address] , [place], [place] [id number] [place] [address] LAB [facility] Work Phone: CBC with Auto Differentialon 05-15-2022 Absolute Baso # 0.0 10*3/uL 0 - 0.2 10*3/uL [facility] Work Phone: Absolute Neut # 3.4 10*3/uL 1.8 - 7 10*3/uL [facility] Work Phone: [phone] Basophils/100 WBC (Bld) 0.8 % 0 - 2 % [facility] Work Phone: [phone] Eosinophils (Bld) [#/Vol] 0.0 10*3/uL 0 - 0.5 10*3/uL [employer] Work Phone: [phone] Eosinophils/100 WBC (Bld) 0.2 % Low 1 - 6 % [facility] Work Phone: [phone] Granulocytes/100 WBC (Bld) 67.5 % 40 - 80 % [facility] Work Phone: Hematocrit (Bld) [Volume fraction] 34.3 % Low 40 - 52 % [facility] Work Phone: Hemoglobin (Bld) [Mass/Vol] 11.8 g/dL Low 13 - 18 g/dL [facility] Work Phone: Interpretation and review of laboratory results Abnormal [facility] Work Phone: [phone] Lymphocytes (Bld) [#/Vol] 1.2 10*3/uL 1 - 4.3 10*3/uL [facility] Work Phone: 222 Lymphocytes/100 WBC (Bld) 23.3 % 20 - 40 % [facility] Work Phone: () MCH (RBC) [Entitic mass] 34.1 pg High 26 - 34 pg [facility] Work Phone: () MCHC (RBC) [Mass/Vol] 34.4 % 32 - 36 % [facility] Work Phone: () MCV (RBC) [Entitic vol] 99.1 fL High 80 - 98 fL [facility] Work Phone: ) Monocytes (Bld) [#/Vol] 0.4 10*3/uL 0 - 0.8 10*3/uL [facility] Work Phone: ) Monocytes/100 WBC (Bld) 7.8 % 2 - 10 % [facility] Work Phone: ) Platelet distribution width (Bld) [Ratio] 13.0 % 11.5 - 14.5 % [facility] Work Phone: Platelet mean volume (Bld) [Entitic vol] 9.7 fL 7.4 - 12.4 fL [facility] Work Phone: ) Comment on above: MPV is a calculated measurement using platelet volume ratio. Platelets (Bld) [#/Vol] 112 10*3/uL Low 140 - 440 10*3/uL [facility] Work Phone: () 222 RBC (Bld) [#/Vol] 3.46 10*6/uL Low 4.4 - 5.9 10*6/uL [facility] Work Phone: ) 222 WBC (Bld) [#/Vol] 5.1 10*3/uL 3.6 - 10.7 10*3/uL [facility] Work Phone: ) Test Performed by [facility], [facility] [address] , [address] LAB [facility] Work Phone: ) [phone] CT Abdomen Pelvis Wo Contrindira ton 05-15-2022 Patient Name: WOODY NI Computed Tomography ACCESSION EXAM DATE/TIME PROCEDURE ORDERING PROVIDER [id number] 05/15/2022 17:[address] Abdomen/Pelvis (No MD AMADA, HANY Lawson PO, No IV) CPT code 33690 Reason For Exam (CT Abdomen/Pelvis (No PO, [...] KRIKOR Transcribed Date and Time: 05/15/2022 5:59 [facility] Veronica Kam MD - 05/15/2022 Patient Name: WOODY NI Computed Tomography ACCESSION EXAM DATE/TIME PROCEDURE ORDERING PROVIDER [id number] 05/15/2022 17:[address] Abdomen/Pelvis (No MD AMADA, HANY T PO, No IV) CPT code 58139 Reason For Exam (CT Abdomen/Pelvis (No PO, [...] Tomography ACCESSION EXAM DATE/TIME PROCEDURE ORDERING PROVIDER [id number] 05/15/2022 17:[address] Abdomen/Pelvis (No AMADA, MD, HANY Lawson PO, No IV) CPT code 20060 Reason For Exam (CT Abdomen/Pelvis (No PO, [...] Transcribed Date and Time: 05/15/2022 5:59 Normal [facility] Complete Urinalysison 2021 Bacteria LM.HPF (Urine sed) [#/Area] Negative Normal Negative [facility] Comment on above: Result Comment: . Performed By: #### B GLU #### [facility] [address] [place] [address] Cast, Hyaline 0 - 2 Abnormal Negative [facility] Comment on above: Result Comment: . Performed By: #### B GLU #### [facility] [address] [place] [address] Mucous Threads Few Normal Negative [facility] Comment on above: Result Comment: . Performed By: #### B GLU #### [facility] [address] [place] [address] RBC LM.HPF (Urine sed) [#/Area] Negative Normal 0-2 [facility] Comment on above: Result Comment: . Performed By: #### B GLU #### [facility] [address] [place] [address] Squamous Epithelial 3 - 5 Normal 3-5 [facility] Comment on above: Result Comment: . Performed By: #### B GLU #### [facility] [address] [place] [address] VOLUME, URINE 12 ml Normal [facility] Comment on above: Result Comment: . Performed By: #### B GLU #### [facility] [address] [place] [address] WBC, Urine 0 - 2 Normal 0-5 [facility] Comment on above: Result Comment: . Performed By: #### B GLU #### [facility] [address] [place] [address] Appearance (U) Clear Normal Clear [facility] Comment on above: Result Comment: . Performed By: #### B GLU #### [facility] [address] [place] [address] Bilirubin,Urine Negative Normal Negative [facility] Comment on above: Result Comment: . Performed By: #### B GLU #### [facility] [address] [place] [address] Color (U) LIGHT YELLOW Normal Lt. Yellow [facility] Comment on above: Result Comment: . Performed By: #### B GLU #### [facility] [address] [place] [address] Glucose Ql (U) Normal Normal Normal (<70) [facility] Comment on above: Result Comment: . Performed By: #### B GLU #### [facility] [address] [place] [address] Ketone,Urine Negative Normal Negative [facility] Comment on above: Result Comment: . Performed By: #### B GLU #### [facility] [address] [place] [address] Leukocytes,Urine Negative Normal Negative [facility] Comment on above: Result Comment: . Performed By: #### B GLU #### [facility] [address] [place] [address] Nitrites,Urine Negative Normal Negative [facility] Comment on above: Result Comment: . Performed By: #### B GLU #### [facility] [address] [place] [address] Occult Blood,Urine Negative Normal Negative [facility] Comment on above: Result Comment: . Performed By: #### B GLU #### [facility] [address] [place] [address] pH,Urine 5.5 Normal 5.0-8.0 [facility] Comment on above: Result Comment: . Performed By: #### B GLU #### [facility] [address] [place] [address] Protein (U) [Mass/Vol] 20 mg/dL Abnormal Negative [facility] Comment on above: Result Comment: . Performed By: #### B GLU #### [facility] [address] [place] [address] Specific [place],Urine 1.006 Normal 1.005 - 1.030 [facility] Comment on above: Result Comment: . Performed By: #### B GLU #### [facility] [address] [place] [address] Urobilinogen,Urine Normal Normal Normal (0-1) [facility] Comment on above: Result Comment: . Performed By: #### B GLU #### [facility] [address] [place] [address] Hemogram w/ Autodiffon 05-15 Abs Baso Cnt 0.0 10*3/uL Normal 0.0-0.2 [facility] Comment on above: Performed By: #### N A3 #### [facility] [address] [place] [address] Abs Neutrophile Cnt 3.4 10*3/uL Normal 1.8-7.0 [facility] Comment on above: Performed By: #### N A3 #### [place] [address] [place] [address] Basophils/100 WBC (Bld) 0.8 % Normal 0.0-2.0 [facility] Comment on above: Performed By: #### N A3 #### [facility] [address] [place] [address] Eosinophils (Bld) [#/Vol] 0.0 10*3/uL Normal 0.0-0.5 [facility] Comment on above: Performed By: #### N A3 #### [facility] [address] [place] [address] Eosinophils/100 WBC (Bld) 0.2 % Low 1.0-6.0 [facility] Comment on above: Performed By: #### N A3 #### [facility] [address] [place] [address] Erythrocyte distribution width (RBC) [Ratio] 13.0 % Normal 11.5-14.5 [facility] Comment on above: Performed By: #### N A3 #### [facility] [address] [place] [address] Granulocytes/100 WBC (Bld) 67.5 % Normal 40.0-80.0 [facility] Comment on above: Performed By: #### N A3 #### [facility] [address] [place] [address] Hematocrit (Bld) [Volume fraction] 34.3 % Low 40.0-52.0 [facility] Comment on above: Performed By: #### N A3 #### [facility] [address] [place] [address] Hemoglobin (Bld) [Mass/Vol] 11.8 g/dL Low 13.0-18.0 [facility] Comment on above: Performed By: #### N A3 #### [facility] [address] [place] [address] Lymphocytes (Bld) [#/Vol] 1.2 10*3/uL Normal 1.0-4.3 [facility] Comment on above: Performed By: #### N A3 #### [facility] [address] [place] [address] Lymphocytes/100 WBC (Bld) 23.3 % Normal 20.0-40.0 [facility] Comment on above: Performed By: #### N A3 #### [facility] [address] [place] [address] MCH (RBC) [Entitic mass] 34.1 pg High 26.0-34.0 [facility] Comment on above: Performed By: #### N A3 #### [facility] [address] [place] [address] MCHC 34.4 % Normal 32.0-36.0 [facility] Comment on above: Performed By: #### N A3 #### [facility] [address] [place] [address] MCV (RBC) [Entitic vol] 99.1 fL High 80.0-98.0 [facility] Comment on above: Performed By: #### N A3 #### [facility] [address] [place] [address] Monocytes (Bld) [#/Vol] 0.4 10*3/uL Normal 0.0-0.8 [facility] Comment on above: Performed By: #### N A3 #### [facility] [address] [place] [address] Monocytes/100 WBC (Bld) 7.8 % Normal 2.0-10.0 [facility] Comment on above: Performed By: #### N A3 #### [facility] [address] [place] [address] Platelet mean volume (Bld) [Entitic vol] 9.7 fL Normal 7.4-12.4 [facility] Comment on above: Result Comment: MPV is a calculated measurement using platelet volume ratio. Performed By: #### N A3 #### [facility] [address] [place] [address] Platelets (Bld) [#/Vol] 112 10*3/uL Low 140-440 [facility] Comment on above: Performed By: #### N A3 #### [facility] [address] [place] [address] RBC (Bld) [#/Vol] 3.46 10*6/uL Low 4.40-5.90 [facility] Comment on above: Performed By: #### N A3 #### [facility] [address] [place] [address] WBC (Bld) [#/Vol] 5.1 10*3/uL Normal 3.6-10.7 [facility] Comment on above: Performed By: #### N A3 #### [facility] [address] [place] [address] Urinalysison 05-15-2022 Appearance (U) Clear Clear NA [facility] Work Phone: [phone] Comment on above: . Bacteria, UA Negative Negative /[HPF] [facility] Work Phone: [phone] Comment on above: . Bilirubin Urine Negative Negative mg/dL [facility] Work Phone: [phone] Comment on above: . Color (U) LIGHT YELLOW Lt. Yellow NA [employer] Work Phone: [phone] Comment on above: . Glucose, Ur Normal Normal (<70) mg/dL [facility] Work Phone: [phone] Comment on above: . Hyaline Casts, UA 0-2 Abnormal Negative /[LPF] [facility] Work Phone: [phone] Comment on above: . Interpretation and review of laboratory results Abnormal [facility] Work Phone: [phone] Ketones Ql (U) Negative Negative mg/dL [facility] Work Phone: [phone] Comment on above: . LEUKOCYTES, UA Negative Negative Emma/uL [facility] Work Phone: [phone] Comment on above: . Mucous Threads Few Negative /[LPF] [facility] Work Phone: [phone] Comment on above: . Nitrite, Urine Negative Negative NA [facility] Work Phone: [phone] Comment on above: . Occult Blood,Urine Negative Negative mg/dL [facility] Work Phone: [phone] Comment on above: . pH (U) 5.5 [pH] [facility] Work Phone: [phone] Comment on above: . Protein (U) [Mass/Vol] 20 mg/dL Abnormal Negative [employer] Work Phone: [phone] Comment on above: . RBC (U) [#/Vol] Negative 0 - 2 /[HPF] [facility] Work Phone: [phone] Comment on above: . Specific [place], Urine 1.006 [facility] Work Phone: Comment on above: . Squam Epithel, UA 3-5 3 - 5 /[HPF] [facility] Work Phone: Comment on above: . Urobilinogen, Urine Normal Normal ( 0-1) mg/dL [facility] Work Phone: Comment on above: . Volume 12 ml [facility] Work Phone: Comment on above: . WBC, UA /[HPF] 0 - 5 /[HPF] [facility] Work Phone: Comment on above: . Test Performed by [facility], [address] , [address] LAB [facility] Work Phone: CT Abdomen Pelvis Wo Fannie mahin 06-24-2020 Chris, [facility] Incoming Radiology Results From [facility] - 06/24/2020 11:47 PM EDT Patient Name: WOODY NI ---CT--- Exam Date/Time 06/24/2020 23:23:[address] Abdomen/Pelvis (No PO, No IV) Ordering Physician [id number] BERRY Accession Number [id number] CPT4 Codes 95304 (CT Abdomen/Pelvis (No PO, No IV)) Reason [...] WENDELL Transcribed Date and Time: 06/24/2020 11:47 [place], [place] Patient Name: WOODY NI ---CT--- Exam Date/Time 06/24/2020 23:23:[address] Abdomen/Pelvis (No PO, No IV) Ordering Physician [id number] CANTU Accession Number [id number] CPT4 Codes 68594 (CT Abdomen/Pelvis (No PO, No IV)) Reason [...] WENDELL Transcribed Date and Time: 06/24/2020 11:47 [place], [place] Comprehensive Metabolic Pane peter 06-24-2020 Albumin [Mass/Vol] 4.6 g/dL 3.5 - 5 g/dL [place], [place] ALP [Catalytic activity/Vol] 62 U/L 38 - 126 U/L [place], [place] ALT [Catalytic activity/Vol] 60 U/L High 0 - 49 U/L [place] Comment on above: The ALT test is perf ormed by an updated assay method. Please note that the reference intervals have been changed and are now sex specific. Anion gap [Moles/Vol] 13 mmol/L [place], [place] AST [Catalytic activity/Vol] 74 U/L High 15 - 46 U/L [place] Bilirubin Ql (U) 1.1 mg/dL 0.2 - 1.3 mg/dL [place] Calcium [Mass/Vol] 9.4 mg/dL 8.4 - 10. 4 mg/dL [place] Chloride [Moles/Vol] 100 mmol/L 98 - 10 7 mmol/L [place] CO2 [Moles/Vol] 26 mmol/L 22 - 30 mmol/L [place] Creatinine [Mass/Vol] 0.98 mg/dL 0.52 - 1.25 mg/dL [place], [place] EGFR IF NonAfrican [place]ian 83.2 mL/min >60 [place], [place] Comment on above: KDIGO guidelines pro [...] MDRD (S/P/Bld) [Vol rate/Area] mL/min/{1.73_m2} >60 mL/min [place], [place] Glucose [Mass/Vol] 108 mg/dL High 70 - 100 mg/dL [place] Interpretation and review of laboratory results Abnormal [place] Potassium [Moles/Vol] 3.4 mmol/L Low 3.5 - 5.1 mmol/L [place] Protein [Mass/Vol] 8.0 g/dL 6.3 - 8.2 g/dL [place] Sodium [Moles/Vol] 138 mmol/L 135 - 145 mmol/L [place] Urea nitrogen [Mass/Vol] 13 mg/dL 7 - 20 mg/dL [place] Hemogram (CBC) w/Auto Diffon 06-24-2020 Absolute Baso # 0.1 10*3/uL 0 - 0.2 10*3/uL [place] Absolute Neut # 3.6 10*3/uL 1.8 - 7 10*3/uL [place] Basophils/100 WBC (Bld) 0.7 % 0 - 2 % [place] Eosinophils (Bld) [#/Vol] 0.3 10*3/uL 0 - 0.5 10*3/uL [place] Eosinophils/100 WBC (Bld) 4.2 % 1 - 6 % [place] Erythrocyte distribution width (RBC) [Ratio] 13.5 % 11.5 - 14.5 % [place] Granulocytes/100 WBC (Bld) 50.8 % 40 - 80 % [place] Hematocrit (Bld) [Volume fraction] 44.5 % 40 - 52 % [place] Hemoglobin (Bld) [Mass/Vol] 15.0 g/dL 13 - 18 g/dL [place] Lymphocytes (Bld) [#/Vol] 2.7 10*3/uL 1 - 4.3 10*3/uL [place] Lymphocytes/100 WBC (Bld) 37.0 % 20 - 40 % [place] MCH (RBC) [Entitic mass] 32.1 pg 26 - 34 pg [place] MCHC (RBC) [Mass/Vol] 33.7 % 32 - 36 % [place] MCV (RBC) [Entitic vol] 95.2 fL 80 - 98 fL [place], [place] Monocytes (Bld) [#/Vol] 0.5 10*3/uL 0 - 0.8 10*3/uL [place] Monocytes/100 WBC (Bld) 7.3 % 2 - 10 % [place] Platelet mean volume (Bld) [Entitic vol] 8.3 fL 7.4 - 10.4 fL [place] Platelets (Bld) [#/Vol] 157 10*3/uL 140 - 440 10*3/uL [place] RBC (Bld) [#/Vol] 4.67 10*6/uL 4.4 - 5.9 10*6/uL [place] WBC (Bld) [#/Vol] 7.2 10*3/uL 3.6 - 10.7 10*3/uL [place] Lipaseon 06-24-2020 Lipase [Catalytic activity/Vol] 26 U/L 23 - 300 U/L [place] Otheron 06-24-2020 Test Performed by [facility], [address] [place], [place] [id number] [place] [address] Test Performed by [facility], [address] [place], [place] [address] [place] Urinalysison 06-24-2020 Appearance (U) Clear Clear NA [place] Comment on above: . Bilirubin Urine Negative Negative mg/dL [place] Comment on above: . Color (U) Light-Yellow Lt. Yellow NA [place] Comment on above: . Glucose, Ur Normal Normal (<70) mg/dL [place] Comment on above: . Ketones Ql (U) Negative Negative mg/dL [place], [place] Comment on above: . LEUKOCYTES, UA Negative Negative Emma/uL [place], [place] Comment on above: . Nitrite, Urine Negative Negative NA [place] Comment on above: . Occult Blood,Urine Negative Negative mg/dL [place] Comment on above: . pH (U) 6.0 [pH] [place] Comment on above: . Protein (U) [Mass/Vol] Negative Negat zenia mg/dL [place] Comment on above: . Specific [place], Urine 1.007 [place] Comment on above: . Urobilinogen, Urine Normal Normal ( 0-1) mg/dL [place] Comment on above: . XR CHEST PORTABLEon 06-24-20 [facility] Incoming Radiology Results From [facility] - 06/24/2020 10:50 PM EDT Patient Name: WOODY IN ---Diagnostic Radiology--- Exam Date/Time 06/24/2020 22:50:03 EDT Exam CR Chest Portable Ordering Physician MACK DAVIS Accession Number [id number] CPT4 Codes 49621 () Reason For Exam productive cough 3 [...] WENDELL Transcribed Date and Time: 06/24/2020 10:50 [place], [place] Patient Name: WOODY NI ---Diagnostic Radiology--- Exam Date/Time 06/24/2020 22:50:03 EDT Exam CR Chest Portable Ordering Physician MACK DAVIS Accession Number [id number] CPT4 Codes 53654 () Reason For Exam productive cough 3 [...] WENDELL Transcribed Date and Time: 06/24/2020 10:50 [place] CT ABDOMEN W CONTRAST Additi onal Contrast? Oralon 07-19-2019 Patient Name: WOODY NI ---CT--- Exam Date/Time 07/19/2019 10:40:[address] Abdomen w/ Contrast (IV Only) Ordering Physician [id number] -DANIEL LONDON Accession Number [id number] CPT4 Codes Q9967 (CT ISOVUE 370MG/ML&[id number]&ML&1 ), 87422 (CT Abdomen w/ Contrast (IV Only)) Reason [...] NELSON Transcribed Date and Time: 07/19/2019 1:34 [facility]- [place], [place] Chris, [facility] Incoming Radiology Results From [facility] - 07/19/2019 1:34 PM EDT Patient Name: WOODY NI ---CT--- Exam Date/Time 07/19/2019 10:40:[address] Abdomen w/ Contrast (IV Only) Ordering Physician [id number] -DANIEL LONDON Accession Number [id number] CPT4 Codes Q9967 (CT ISOVUE 370MG/ML&[id number]&ML&1 ), 50812 (CT Abdomen w/ Contrast (IV Only)) Reason [...] NELSON Transcribed Date and Time: 07/19/2019 1:34 [facility], [place] XR RIBS LEFT (2 VIEWS)on Patient Name: WOODY NI ---Diagnostic Radiology--- Exam Date/Time 07/19/2019 09:50:11 EDT Exam CR Ribs 2 Views Left Ordering Physician DANIEL ARTEAGA Accession Number [id number] CPT4 Codes 22807 () Reason For Exam intercostal pain Report [...] JASON Transcribed Date and Time: 07/19/2019 9:50 [place], [place] [facility], [facility] 07/19/2019 9:51 PM EDT Patient Name: WOODY NI ---Diagnostic Radiology--- Exam Date/Time 07/19/2019 09:50:11 EDT Exam CR Ribs 2 Views Left Ordering Physician DANIEL ARTEAGA Accession Number [id number] CPT4 Codes 75311 () Reason For Exam intercostal pain Report [...] JASON Transcribed Date and Time: 07/19/2019 9:50 [place] BUNon 07-16-2019 Urea nitrogen [Mass/Vol] 20 mg/dL 7 - 20 mg/dL [place] Creatinine, Serumon 07-16-20 19 Creatinine [Mass/Vol] 1.13 mg/dL 0.52 - 1.25 mg/dL [place] EGFR IF NonAfrican Zambian >60.0 >60 mL/min [place] Comment on above: Source- MDRD equatio n with creatinine calibration to IDMS(NKDEP) eGFR not recommended for drug dose adjustment GFR/1.73 sq M predicted among blacks MDRD (S/P/Bld) [Vol rate/Area] mL/min/{1.73_m2} >60 mL/min [place] Otheron 07-16-2019 Test Performed by [facility], [address] [place] [address] [place] , [address] CASE MANAGEMon 06-20-2017 CASE MANAGEM HNO ID: [id number] thor: Emilee (Rn) ELEANOR Voervice: Case ManagementAuthor Type: Registered NurseType: Care Mgt Progress NoteFiled: 06/20/2017 11:32 AMNote Text:CARE MANAGEMENT DISCHARGE NOTESERVICE DATE: 06/20/2017SERVICE TIME: 11:25 AM LOS: 2 daysAdmission Date: 06/18/2017DISCHARGE ARRANGEMENT (list agency and phone number)Home and Home careProvider: [facility] DLSELOT COMMUNICATION:Primary Care Physician: Jani Quezada Phone Number: .[phone] - Received return call from Adama @ [facility] @11:30am and informed of patient discharge home today and all dc documentssent to office thru AllscriptsTRANSPORTATION ARRANGEMENTS:Car - Family to transport homeADDITIONAL CONTACT RESOURCES:FOLLOW UP: With Dr Holder in 1-2 weeks (or as already scheduled)[phone] NATURE: Emilee Vo RN PATIENT NAME: Woody NiDATE: June 20, 2017 : 11:25 AM PAGER/CONTACT #: [phone] [facility] 06-20-2017 CN HNO ID: [id number] thor: ELEANOR Vasquezervice: NeurosurgeryAuthor Type: Registered NurseType: Discharge SummariesFiled: 06/23/2017 7:04 PMNote Text:DISCHARGE SUMMARYPATIENT NAME: Woody Ni ADMISSION DATE: 06/18/2017MRN: [id number] DISCHARGE DATE: 06/20/2017Attending Physician: No att. providers [...] compression. The significant areas affected extend from E5dqsfylw S1.?Operations During Hospitalization: L2, L3, L4, L5, [...] Medfluticasone (FLONASE) 50 mcg/actuation nasal sprayUse 1 [place] in the nose once daily as needed.Historical [...] RN PAGER:DATE: June 23, 2017TIME: 6:53 PM [facility] CONSULT PROGon 06-20-2017 CONSULT PROG HNO ID: [id number] thor: Vianey Lau: General Internal MedicineAuthor Type: [...] Vianey Tiwari MD PATIENT NAME: Woody Ni [facility] NURSING PROGon 06-20-2017 NURSING PROG HNO ID: [id number] thor: Leonora (Rn) ELEANOR Srivastavaervice: (none)Author Type: Registered NurseType: Nursing Progress NoteFiled: 06/20/2017 10:39 AMNote Text:Discharge instructions provided regarding laminectomy, percoset, follow upappointment. Questions answered, patient verbalized understanding.Discharged via wheelchair with spouse and PCNA. [facility] PROGRESSon 06-20-2017 PROGRESS HNO ID: [id number] thor: Abel Londono: NeurosurgeryAuthor Type: PhysicianType: Progress [...] 4.1 oz) SpO2 94% BMI 31.32kg/m2 str 5/5 no focal deficits, incision looks goodSIGNATURE: Abel Holder, MDPAGER: [phone] (ELIANE)DATE of SERVICE: 06/20/2017TIME of SERVICE: 9:25 AM Normal [facility] Basic Metabolic Panlon 06-19 Anion gap 9 mmol/L Normal 0-15 [facility] Comment on above: Performed By: #### C ONABO ####[facility] [address] [place] [phone] Calcium 8.4 mg/dL Low 8.5-10.5 [facility] Comment on above: Performed By: #### C ONABO ####[facility] Ktvlrhaafy8953 [address] Chloride 102 mmol/L Normal 98-110 [facility] Comment on above: Performed By: #### C ONABO ####[facility] Ielufminhb8688 [address] CO2 32 mmol/L Normal 23-32 [facility] Comment on above: Result Comment: Rech ecked Performed By: #### C ONABO ####[facility] [address] [place] [address] Creatinine 0.86 mg/dL Normal 0.70-1.40 [facility] Comment on above: Performed By: #### C ONABO ####[facility] [address]out[address] [place] [address] eGFR (non-black) mL/min/{1.73_m2} Normal [facility] Comment on above: Performed By: #### C ONABO ####[facility] [address] [place] [address] Result Comment: eGFR (Estimated GFR) Units of [...] Glucose mass conc 114 mg/dL High 65-100 [facility] Comment on above: Performed By: #### C ONABO ####[facility] [address] [place] [address] Potassium molar conc 3.4 mmol/L Low 3.5-5.0 [facility] Comment on above: Performed By: #### C ONABO ####[facility] [address] [place] [address] Sodium 143 mmol/L Normal 135-146 [facility] Comment on above: Performed By: #### C ONABO ####[facility] [address] [place] [address] Urea nitrogen 6 mg/dL Low 10-25 [facility] Comment on above: Performed By: #### C ONABO ####[facility] [address] [place] [address] CASE MANAGEMon 06-19-2017 CASE MANAGEM HNO ID: [id number] thor: Vanesa LarsenRnELEANOR Harmonervice: Case ManagementAuthor Type: Registered NurseType: Care Mgt [...] follow.SIGNATURE: Vanesa Wilson RN PATIENT NAME: Woody NiDATE: June 19, 2017 : 2:47 PM PAGER/CONTACT #: [phone] Normal [facility] CBCon 06-19-2017 Erythrocyte distribution width Auto Ratio (RBC) 14.0 % Normal 11.5-15.0 [facility] Comment on above: Performed By: #### C ONABO ####[facility] [address] [place] [address] Erythrocytes (RBC) 4.15 10*6/uL Low 4.20-6.00 [facility] Comment on above: Performed By: #### C ONABO ####[facility] [address] [place] [address] Hematocrit (HCT) 37.8 % Low 39.0-51.0 [facility] Comment on above: Performed By: #### C ONABO ####[facility] [address] [place] [address] Hemoglobin mass conc (Bld) 12.9 g/dL Low 13.0-17.0 [facility] Comment on above: Performed By: #### C ONABO ####[facility] [address] [place] [address] MCH 31.1 pG Normal 26.0-34.0 [facility] Comment on above: Performed By: #### C ONABO ####[facility] [address] [place] [address] MCHC mass conc (RBC) 34.1 g/dL Normal 30.5-36.0 [facility] Comment on above: Performed By: #### C ONABO ####[facility] [address]eg[address] [place] [address] MCV 91.1 fL Normal 80.0-100.0 [facility] Comment on above: Performed By: #### C ONABO ####[facility] [address] [place] [address] Platelet mean volume (PMV) 11.1 fL Normal 9.0-12.7 [facility] Comment on above: Performed By: #### C ONABO ####[facility] [address] [place] [address] Platelets 122 10*3/uL Low 150-400 [facility] Comment on above: Performed By: #### C ONABO ####[facility] [address] [place] [address] WBC (Leukocytes) 8.26 10*3/uL Normal 3.70-11.00 [facility] Comment on above: Performed By: #### C ONABO ####[facility] [address] [place] [address] CONSULT PROGon 06-19-2017 CONSULT PROG HNO ID: [id number] thor: Vianey Lau: General Internal MedicineAuthor Type: [...] Vianey Tiwari MD PATIENT NAME: Woody Ni [facility] NURSING PROGon 06-19-2017 NURSING PROG HNO ID: [id number] thor: Zachariah LarsenRn) Rula Mcphersonice: NursingAuthor Type: Registered NurseType: Nursing Progress NoteFiled: 06/19/2017 11:39 AMNote Text: Nursing Progress NotePatient Name: Woody NiMRN: [id number] Location: [place] [address]/[id number]__ 0745- Assessment complete. Patient extremely agitated, belligerent [...] she said he slept most of the qixni7909- Patient says he is not "having bad thoughts" any longer since hereceived his Lexapro.This note was completed by: Zachariah Mcpherson RN [facility] NURSING PROG HNO ID: [id number] thor: Doug Palacios Rn: (none)Author Type: Registered NurseType: Nursing Progress NoteFiled: [...] scheduled for 4x's during the day not emlx95gio, his flexeril 3x's a day as needed, [...] agitated stating I was lying about himsleeping. [facility] PROGRESSon 06-19-2017 PROGRESS HNO ID: [id number] thor: Korin Dickersonvice: NeurosurgeryAuthor Type: Nurse PractitionerType: Progress NotesFiled: 06/19/2017 [...] control as orderedDiscussed with Dr. BurtATURE: Korin Lee, REEL CART OPERATOR PATIENT NAME: Woody PosadaTE: June 19, 2017 : 9:17 AM PAGER: [phone] [facility] THERAPY NTon 06-19-2017 THERAPY NT HNO ID: [id number] thor: Emilee (Ot/L) CecilService: Occupational TherapyAuthor Type: Occupational TherapistType: Therapy (PT/OT/Speech/Resp)Filed: 06/19/2017 1:34 PMNote Text:Occupational Therapy EvaluationSERVICE DATE: 06/19/2017SERVICE TIME: 1105 to 1142ROOM: [id number] Discharge Disposition: Home OTRecommended Discharge Disposition Comments: [...] activities of dailyliving (ADL)Interventions Provided: Evaluation;Therapeutic Activity (29303);Self CareHome Management (25372)$ Evaluation-Low (45876) Billed Units: 1 unitTherapeutic Activity (87894) Treatment Minutes: 101 unitSkilled Intervention(s): Pt instructed [...] with log roll technique.Self Group Home Management (31147) Treatment Minutes: 141 unitSkilled Intervention(s): Pt educated [...] safe technique fordonning/doffing pants/underwear with use of patient accounts coordinator. 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)Entry To Home: Stairs;Without [...] distal: NT per pt request d/t IVplacement, supervisor lime: WFLRight Upper Extremity Strength: Prox: 4/5, distal: 4/5, supervisor lime: WFLBalance: Dynamic Standing;Static StandingStatic Standing Balance: Stand [...] June 19, 2017 : 1:21 PM PAGER: [phone] [facility] THERAPY NT HNO ID: [id number] thor: Samantha (Pt) Gaele: Physical TherapyAuthor Type: Physical TherapistType: Therapy (PT/OT/Speech/Resp)Filed: 06/19/2017 11:21 AMNote Text:Physical Therapy EvaluationSERVICE DATE: 06/19/2017SERVICE TIME: 1003 to 1038 time allowed for chart reviewROOM: [id number] Discharge Disposition: Home PTRecommended Discharge Disposition Comments: [...] Weakness(generalized);Uns teadiness on feetInterventions Provided: Evaluation;Therapeutic Activity (10360);GaitTraining (55407)$ Evaluation-Low (09609) Billed Units: 1 unitTherapeutic Activity (09159) Treatment Minutes: 141 unitSkilled Intervention(s):Instructe d patient [...] stabilitywith gait, parameters of wearing LSOGait Training (03212) Treatment Minutes: 50 unitsSkilled Intervention(s):Instructi on in [...] Family (spouse and grand kids)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)Entry To Home: Stairs;Without [...] ns: Intact and as follows: peripheral IV, A1Lmefwy see discipline specific clinical documentation flowsheet forcomplete details for this therapy evaluation/treatment.SIGN ATURE: Samantha Trujillo PT PATIENT NAME: Woody PosadaTE: June 19, 2017 : 11:01 AM PAGER/CONTACT #: [phone] [facility] ANES Parminder 06-18-2017 ANES POST HNO ID: [id number] thor: Emmanuelle Grecoervice: AnesthesiologyAuthor Type: AnesthesiologistType: Anesthesia [...] 18, 2017 : 3:44 PM PAGER/CONTACT #: [phone] [facility] ANES PREOPon 06-18-2017 ANES PREOP HNO ID: [id number] thor: Emmanuelle Grecoervice: AnesthesiologyAuthor Type: AnesthesiologistType: Anesthesia [...] WADDELL: Emmanuelle Patino MD PATIENT NAME: Woody NiDATE: June 18, 2017 : 11:19 AM CSN: [id number] [facility] BRIEF OP NOTon 06-18-2017 BRIEF OP NOT HNO ID: [id number] thor: Abel HolderService: NeurosurgeryAuthor Type: PhysicianType: Brief Op NoteFiled: 06/18/2017 2:28 PMNote Text:BRIEF OPERATIVE NOTEPatient Name: Woody NiMRN: [id number] ID: [id number] Date: 06/18/2017Surgeon(s) and Garbage Collector Supervisor(s):Surgeon(s) and Role: * Abel Holder - PrimaryProcedures and Anesthesia:Procedure(s) and Anesthesia Type: * DECOMPRESSION LAMINECTOMY LUMBAR POSTERIOR LEVEL 1 WITH C ARM -General * DECOMPRESSION LAMINECTOMY 1ST ADD'L LUMBAR SEGMENT - GeneralFindings: See full op reportEstimated Blood Loss: 150ccIntravenous Fluids: see anesthesiaCondition: goodSpecimens: nonePostop Diagnosis: lumbar stenosisSignature: Abel Holder, MDDate: June 18, 2017Time: 2:28 PM [facility] CASE MGT INIT ASSESon 2016 CASE MGT INIT [facility] HNO ID: [id number] thor: Monica (Rn) ELEANOR Maloneervice: Care ManagementAuthor Type: Registered NurseType: Care Mgt Initial AssessmentFiled: 06/18/2017 8:00 PMNote Text:CARE MANAGEMENT: ASSESSMENT AND DISCHARGE PLANSERVICE DATE: 06/18/2017SERVICE TIME: IMARY CARE PHYSICIAN:SANIYA Hoffmannhone: [phone] STATUS: InpatientPOTENTIAL DISCHARGE PLANSHomeHome OT/PTSkilled Nursing Facility/Intermediate Care FacilityTo Be DeterminedPatient/Represe ntative Stated Goals: to return homeNeeds Prior to Discharge: To Be Determined;OT/PT EvaluationHealth Insurance: Medicare, MedicaidLiving Arrangement: HomeLives With: with sig. otherFinancial Resources: DisabledPrimary Contact:Extended Emergency Contact InformationPrimary Emergency Contact: Susie Carl Sshmqivq: Significant otherSupportive: YesOther Important Patient Contacts: NoneCAREGIVER [...] Prior to Admission: Aerosols/Intermittent positivebreathing/Respira tory TreatmentsBedside CommodeCane - StraightWalkereeTaylor Regional Hospital P[facility]HEALTH:Health Issues Impacting Discharge Plan: Lumbar [...] days? NoHas the Patient Been in a Senior Living Facility in the Past 30 days? NoFREEDOM [...] 18, 2017 : 7:55 PM PAGER/CONTACT #: [phone] [facility] CONSULTon 06-18-2017 CONSULT HNO ID: [id number] thor: Vianey Bryante: General Internal MedicineAuthor Type: PhysicianType: ConsultsFiled: 06/18/2017 [...] PATIENT NAME: Woody Martin: June 18, 2017 [facility] HISTORY PHYSICALon HISTORY PHYSICAL HNO ID: [id number] thor: Abel HolderService: NeurosurgeryAuthor Type: PhysicianType: HANDPFiled: [...] June 18, 2017 : 12:09 PM PAGER: [facility] NURSING PROGon 06-18-2017 NURSING PROG HNO ID: [id number] thor: Josefina (Rn) ELEANOR Ahmadiervice: NursingAuthor Type: Registered NurseType: Nursing Progress NoteFiled: 06/18/2017 11:10 AMNote Text:1010 pt to ASCU 7. AANDOx3. SENIOR TCX4. Ambulates with cane. Pt c/o back pain.PIV started without difficulty. VSS no s/sx of distress.1057 pt ready for OR. Family @ BS. [facility] OPERATIVE NOon 06-18-2017 OPERATIVE NO HNO ID: [id number] thor: Abel Irwinvice: NeurosurgeryAuthor Type: PhysicianType: Operative ReportFiled: 06/20/2017 9:08 AMNote Text:[facility]- Operative ReportWOODY NIDOB: 1960 AGE: 57 SEX: MMRN: [id number] ACCTNUM: [id number] [facility] [place] [facility] LOCATION: [address] [place] [address] PHYSICIAN: Abel Holder M.D.DATE OF PROCEDURE: 06/18/2017SURGEON: Abel Holder M.D.BUSINESS ADMINISTRATOR: Korin Lee CNP.ANESTHESIA:PREOPERATI VE DIAGNOSIS(ES): L2-S1 spondylosis, stenosis, intractable lowback [...] Postanesthesia Care Unit in satisfactory condition.Abel Holder M.D.NeurosurgeryDD:[id number]: 06/18/2017 14:26:21T: 06/18/2017 23:12:00Job #: [id number] [facility] XR FLUOROSCOPYon 06-18-2017 XR FLUOROSCOPY * * [...] surgical instrument overlying the posterior lowest lumbar level.Rope Cleaner: PSCIbeth Transcribe Date/Time: Jun 19 2017 7:09ADictated by : JERRY WINSTON MDThitacho examination was interpreted and the report reviewed and electronically signed by: JERRY WINSTON MD on Jun 19 2017 7:09AM EST [facility] NURSING PROGon 06-11-2017 NURSING PROG HNO ID: [id number] thor: Anna (Rn) Kel, RNService: (none)Author Type: Registered NurseType: Nursing Progress NoteFiled: 06/11/2017 7:46 AMNote Text:PACC visit complete on 06/10/17. HANDP by Aron Meeks CNP. Cbc/diff, Cmp,Pt/Ptt, TANDS and conabo from 06/10/17 results reviewed in chart. EKG dated05/28/17 and stress test dated 06/08/17 reviewed in chart with scan date of06/10/17. Chart check complete. Anna Begum RN [facility] APTTon 06-10-2017 aPTT 26.2 s Normal 23.0-32.4 [facility] Comment on above: Result Comment: [...] reagent. Performed By: #### P T, PTT ####[place] [id number]CThomas [place] [phone] CBC and Differentialon 06-10 Abs Baso 0.05 k/uL Normal 0.00-0.10 [facility] Comment on above: Performed By: #### C BCDIF, CMP ####[place] [address] [address] [phone] Abs [place] 0.61 k/uL Normal 0.00-0.86 [facility] Comment on above: Performed By: #### C BCDIF, CMP ####[place] [address] [address] [phone] Abs Neut 4.65 k/uL Normal 1.45-7.50 [facility] Comment on above: Performed By: #### C BCDIF, CMP ####[place] [address] [address] [phone] Basophils/100 WBC Auto (Bld) 0.6 % Normal [facility] Comment on above: Performed By: #### C BCDIF, CMP ####[place] [address] [address] [place] [phone] DTYPE Auto Diff Normal [facility] Comment on above: Performed By: #### C BCDIF, CMP ####[place] [address] [address] [place] [phone] Eosinophils 0.08 10*3/uL Normal 0.00-0.45 [facility] Comment on above: Performed By: #### C BCDIF, CMP ####[place] [address] [address] [place] [phone] Eosinophils/100 leukocytes 0.9 % Normal [facility] Comment on above: Performed By: #### C BCDIF, CMP ####[place] [address] [address] [place] [phone] Erythrocyte distribution width Auto Ratio (RBC) 13.1 % Normal 11.5-15.0 [facility] Comment on above: Performed By: #### C BCDIF, CMP ####[place] [address] [address] [place] [phone] Erythrocytes (RBC) 0.00 10*6/uL Normal [facility] Comment on above: Performed By: #### C BCDIF, CMP ####[place] [address] [address] [place] [phone] Erythrocytes (RBC) 0.0 /100 WBC Normal 0 [facility] Comment on above: Performed By: #### C BCDIF, CMP ####[place] [address] [address] [place] [phone] Erythrocytes (RBC) 5.13 10*6/uL Normal 4.20-6.00 [facility] Comment on above: Performed By: #### C BCDIF, CMP ####[place] [address] [address] [phone] Hematocrit (HCT) 46.4 % Normal 39.0-51.0 [facility] Comment on above: Performed By: #### C BCDIF, CMP ####[address] [phone] Hemoglobin mass conc (Bld) 15.8 g/dL Normal 13.0-17.0 [facility] Comment on above: Performed By: #### C BCDIF, CMP ####[place] [address] [address] [place] [phone] Lymphocytes 3.47 10*3/uL Normal 1.00-4.00 [facility] Comment on above: Performed By: #### C BCDIF, CMP ####[place] [address] [address] [place] [phone] Lymphocytes/100 leukocytes 39.2 % Normal [facility] Comment on above: Performed By: #### C BCDIF, CMP ####[place] [address] [address] [place] [phone] MCH 30.8 pG Normal 26.0-34.0 [facility] Comment on above: Performed By: #### C BCDIF, CMP ####[place] [address] [address] [place], [place] [phone] MCHC mass conc (RBC) 34.1 g/dL Normal 30.5-36.0 [facility] Comment on above: Performed By: #### C BCDIF, CMP ####[place] [address] [address], [place] [phone] MCV 90.4 fL Normal 80.0-100.0 [facility] Comment on above: Performed By: #### C BCDIF, CMP ####[address] [phone] Monocytes/100 leukocytes 6.9 % Normal [facility] Comment on above: Performed By: #### C BCDIF, CMP ####[place] [address] [address], [place] [phone] Neutrophils/100 WBC Auto (Bld) 52.4 % Normal [facility] Comment on above: Performed By: #### C BCDIF, CMP ####[address] [phone] Platelet mean volume (PMV) 11.0 fL Normal 9.0-12.7 [facility] Comment on above: Performed By: #### C BCDIF, CMP ####[place] [address] [address], [place] [phone] Platelets 224 10*3/uL Normal 150-400 [facility] Comment on above: Performed By: #### C BCDIF, CMP ####[place] [address] [address], [place] [phone] WBC (Leukocytes) 8.86 10*3/uL Normal 3.70-11.00 [facility] Comment on above: Performed By: #### C BCDIF, CMP ####[address] [phone] Comp Metabolic Panelon 06-10 Alanine aminotransferase (ALT) 47 U/L Normal 10-54 [facility] Comment on above: Performed By: #### C BCDIF, CMP ####[place] [address] [address] [place], [place] [phone] Albumin 4.9 g/dL Normal 3.9-4.9 [facility] Comment on above: Performed By: #### C BCDIF, CMP ####[place] [address] [address], [place] [phone] Alkaline phosphatase (ALP) 64 U/L Normal 36-108 [facility] Comment on above: Performed By: #### C BCDIF, CMP ####[place] [address] [address], [place] [phone] Anion gap 17 mmol/L Normal 9-18 [facility] Comment on above: Performed By: #### C BCDIF, CMP ####[place] [address] [address] [phone] Aspartate aminotransferase (AST) 44 U/L High 14-40 [facility] Comment on above: Performed By: #### C BCDIF, CMP ####[place] [address] [address] [place], [place] [phone] Bilirubin (total) 1.0 mg/dL Normal 0.2-1.3 [facility] Comment on above: Performed By: #### C BCDIF, CMP ####[place] [address] [address] [place], [place] [phone] Calcium 9.4 mg/dL Normal 8.5-10.2 [facility] Comment on above: Performed By: #### C BCDIF, CMP ####[place] [address] [address] [place] [phone] Chloride 96 mmol/L Low 97-105 [facility] Comment on above: Performed By: #### C BCDIF, CMP ####[place] [address] [address] [place], [place] [phone] CO2 21 mmol/L Low 22-30 [facility] Comment on above: Performed By: #### C LUCIANO, CMP ####[place] [id number] [place], [place] [phone] Creatinine 1.02 mg/dL Normal 0.73-1.22 [facility] Comment on above: Performed By: #### C LUCIANO, CMP ####[address] [phone] eGFR (non-black) mL/min/{1.73_m2} Normal [facility] Comment on above: Performed By: #### C LUCIANO, CMP ####[address] [phone] Result Comment: eGFR (Estimated GFR) Units of [...] Glucose mass conc 103 mg/dL High 74-99 [facility] Comment on above: Result Comment: The [place] [employer] Association (ADA) provides guidance for cutoff [...] Standards of Medical Care in Diabetes 2016, [place] [employer]. Diabetes Care. 2016.39(Suppl 1). Performed By: #### C BCDIF, CMP ####[facility] [address], [place] [phone] Potassium molar conc 3.8 mmol/L Normal 3.7-5.1 [facility] Comment on above: Performed By: #### C BCDIF, CMP ####[facility] [address], [place] [phone] Protein 7.4 g/dL Normal 6.3-8.0 [facility] Comment on above: Performed By: #### C BCDIF, CMP ####[facility] [address], [place] [phone] Sodium 134 mmol/L Low 136-144 [facility] Comment on above: Performed By: #### C BCDIF, CMP ####[facility], [place] [phone] Urea nitrogen 9 mg/dL Normal 9-24 [facility] Comment on above: Performed By: #### C BCDIF, CMP ####[facility] [address] [place], [place] [phone] Confirm Blood Typeon 017 ABO/RH(D) Positive Normal [facility] Comment on above: Performed By: #### C ONABO ####[facility] [address] [place] [phone] HISTORY PHYSICALon 7 HISTORY PHYSICAL HNO ID: [id number] thor: Debora (Truck Packer) KELLY MeeksSerfahade: (none)Author Type: Nurse PractitionerType: HANDPFiled: 06/10/2017 10:29 AMNote Text:HISTORY AND PHYSICAL EXAMINATIONSERVICE DATE: 06/10/2017SERVICE TIME: 9:30 [facility]PRIEASTPO[facility]: MORRIS Hoffmann FOR VISIT:Woody [...] (FLONASE) 50 mcg/actuation nasal spray Use 1 [place] in the noseonce daily as needed. Yesfurosemide [...] Normalstress test earlier this month. Denies CP, FL, DVT, PE, lightheaded,dizziness, palpitations or CHF.GI: Positive [...] results within date range.No results found for: [id number] recent labsMost recent imaging in Care EverywhereMost recent stress test in Care EverywhereEKG requested from Dr. Quezada' officeAssessmentASSESSMassachusetts Mental Health Center - Advised to continue same medication.Diabetes - [...] pending LABS.CBC, CMP and EKG scanned into EPIC.CONSULTS:Patient does not require consults for optimization at this time.The Following Tests/Procedures Have Been Initiated:Orders Placed This Encounter ACTIVATED PTT PROTHROMBIN TIME/PT TYPE + SCREEN,30 DAY CONABOPlanned Anesthetic: GeneralInstructions Given to Patient:Patient given verbal and written preop instructions and voicescomprehension and compliance.SIGNATURE: Debora Meeks CNP PATIENT NAME: Woody PosadaTE: June 10, 2017 : 9:30 AM PAGER/CONTACT #: [facility] [place] Protimeon 06-10-2017 INR Coag RelTime (Bld) 1.1 {INR} Normal 0.8-1.2 [facility] Comment on above: Result Comment: The PT/INR [...] to 3.5 for older generation mechanical heart valves.Wolfgangell, et al. CHEST 2004: 126:204S to 233S. Performed By: #### P T, PTT ####[facility] [place], [place] [phone] PT Sec 12.1 sec Normal 8.4-13.0 [facility] Comment on above: Performed By: #### P T, PTT ####[facility] [place], [place] [phone] Type and SCR (30D)on 017 ABO/RH(D) Positive Normal [facility] Comment on above: Performed By: #### T SCR30 ####[facility] [address] [place] [phone] Antibody Screen Negative Normal [facility] Comment on above: Performed By: #### T SCR30 ####[facility] [address] [place] [phone] HOSPon 05-27-2017 HOSP Patient:Kimberly NiN : Height:5' 10"(1.778 m)Weight:213 lb (96.616 kg)Outpatient [...] 3.7HEMA* 46.4 % 06/10/2017 51.0 39.0Progress Notes ([facility]):Neisha Reyes MD 06/05/2017 11:03 AM Josesito Ni [...] DIFFReturn in about 1 year (around 06/05/2018).Neisha Reyes, MDDATE: 06/05/17TIME: 10:57 AMPrevious Version Normal [facility] Vital Signs Date Time Vital Sign Value Performing Clinician Facility 05-08-2025 01:00-0400 Diastolic blood pressure 69 mm[Hg] Dr. Jani Quezada MD Work Phone: [facility] 05-08-2025 01:00-0400 Heart rate 84 /min Dr. Jani Quezada MD Work Phone: [facility] 05-08-2025 01:00-0400 Respiratory rate 18 /min Dr. Jani Quezada MD Work Phone: [facility] 05-08-2025 01:00-0400 SaO2% (BldA) [Mass fraction] 97 % Dr. Jani Quezada MD Work Phone: [facility] 05-08-2025 01:00-0400 Systolic blood pressure 117 mm[Hg] Dr. Jani Quezada MD Work Phone: [facility] 05-08-2025 00:00-0400 Body temperature 97.9 [degF] Dr. Jani Quezada MD Work Phone: [facility] 05-07-2025 23:03-0400 Body height 177.[address] Jani Quezada MD Work Phone: [facility] 07-10-2024 15:01-0400 Body temperature 98.2 [degF] Ashley Bell MD Work Phone: [facility] 07-10-2024 15:01-0400 Diastolic blood pressure 82 mm[Hg] Ashley Bell MD Work Phone: [facility] 07-10-2024 15:01-0400 Heart rate 106 /min Ashley Bell MD Work Phone: [facility] 07-10-2024 15:01-0400 Respiratory rate 16 /min Ashley Bell MD Work Phone: [facility] 07-10-2024 15:01-0400 SaO2% (BldA) [Mass fraction] 96 % Ashley Bell MD Work Phone: [facility] 07-10-2024 15:01-0400 Systolic blood pressure 135 mm[Hg] Ashley Bell MD Work Phone: [facility] 07-05-2024 00:28-0400 Body height 177.8 cm Ashley Bell MD Work Phone: [facility] 07-05-2024 00:28-0400 Body mass index (BMI) [Ratio] 23.53 kg/m2 Ashley Bell MD Work Phone: [facility] 07-05-2024 00:28-0400 Body weight 74.4 kg Ashley Bell MD Work Phone: [facility] 04-30-2024 07:29-0400 Body temperature 96.3 [degF] Kassandra Adkins MD Work Phone: [facility] 04-30-2024 07:29-0400 Diastolic blood pressure 74 mm[Hg] Kassandra Adkins MD Work Phone: [facility] 04-30-2024 07:29-0400 Heart rate 68 /min Kassandra Adkins MD Work Phone: [facility] 04-30-2024 07:29-0400 Respiratory rate 17 /min Kassandra Adkins MD Work Phone: [facility] 04-30-2024 07:29-0400 SaO2% (BldA) [Mass fraction] 99 % Kassandra Adkins MD Work Phone: [facility] 04-30-2024 07:29-0400 Systolic blood pressure 134 mm[Hg] Kassandra Adkins MD Work Phone: [facility] 04-30-2024 06:11-0400 Body mass index (BMI) [Ratio] 25.68 kg/m2 Kassandra Adkins MD Work Phone: [facility] 04-30-2024 06:11-0400 Body weight 81.19 kg Kassandra Adkins MD Work Phone: [facility] 04-22-2024 20:43-0400 Body height 177.8 cm Kassandra Adkins MD Work Phone: [facility] 04-04-2024 17:44-0400 Diastolic blood pressure 75 mm[Hg] Júnior Lo MD Work Phone: [facility] 04-04-2024 17:44-0400 Heart rate 96 /min Júnior Lo MD Work Phone: [facility] 04-04-2024 17:44-0400 Respiratory rate 17 /min Júnior Lo MD Work Phone: [facility] 04-04-2024 17:44-0400 Systolic blood pressure 140 mm[Hg] Júnior Lo MD Work Phone: [facility] 04-04-2024 16:45-0400 SaO2% (BldA) [Mass fraction] 100 % Júnior Lo MD Work Phone: [facility] 04-04-2024 15:28-0400 Body height 177.8 cm Júnior Lo MD Work Phone: [facility] 04-04-2024 15:28-0400 Body mass index (BMI) [Ratio] 22.96 kg/m2 Júnior Lo MD Work Phone: [facility] 04-04-2024 15:28-0400 Body temperature 97.3 [degF] Júnior Lo MD Work Phone: [facility] 04-04-2024 15:28-0400 Body weight 72.58 kg Júnior Lo MD Work Phone: [facility] 03-09-2024 10:31-0400 Diastolic blood pressure 92 mm[Hg] Nir Driscoll DO Work Phone: [facility] 03-09-2024 10:31-0400 Systolic blood pressure 166 mm[Hg] Nir Driscoll DO Work Phone: [facility] 03-09-2024 09:45-0400 Heart rate 103 /min Nir Driscoll DO Work Phone: [facility] 03-09-2024 09:45-0400 Respiratory rate 16 /min Nir Driscoll DO Work Phone: [facility] 03-09-2024 09:45-0400 SaO2% (BldA) [Mass fraction] 98 % Nir Driscoll DO Work Phone: [facility] 03-08-2024 22:34-0400 Body height 177.8 cm Nir Driscoll DO Work Phone: [facility] 03-08-2024 22:34-0400 Body mass index (BMI) [Ratio] 23.68 kg/m2 Nir Driscoll DO Work Phone: [facility] 03-08-2024 22:34-0400 Body weight 74.84 kg Nir Driscoll DO Work Phone: [facility] 03-08-2024 22:32-0400 Body temperature 97.9 [degF] Nir Driscoll DO Work Phone: [facility] 01-26-2024 07:47-0400 Body temperature 97.39 [degF] Daniel Gombash DO Work Phone: [facility] 01-26-2024 07:47-0400 Diastolic blood pressure 78 mm[Hg] Daniel Gombash DO Work Phone: [facility] 01-26-2024 07:47-0400 Heart rate 82 /min Daniel Gombash DO Work Phone: [facility] 01-26-2024 07:47-0400 Respiratory rate 18 /min Daniel Gombash DO Work Phone: [facility] 01-26-2024 07:47-0400 SaO2% (BldA) [Mass fraction] 97 % Daniel Gombash DO Work Phone: [facility] 01-26-2024 07:47-0400 Systolic blood pressure 138 mm[Hg] Daniel Gombash DO Work Phone: [facility] 01-26-2024 05:50-0400 Body mass index (BMI) [Ratio] 24.85 kg/m2 Daniel Gombash DO Work Phone: [facility] 01-26-2024 05:50-0400 Body weight 78.56 kg Daniel Ewing DO Work Phone: [facility] 01-19-2024 09:58-0400 Body height 177.8 cm Daniel Ewing DO Work Phone: [facility] 10-27-2023 11:46-0500 Body temperature 97.39 [degF] Khurram Bob MD Work Phone: [facility] 10-27-2023 11:46-0500 Diastolic blood pressure 93 mm[Hg] Khurram Bob MD Work Phone: [facility] 10-27-2023 11:46-0500 Heart rate 101 /min Khurram Bob MD Work Phone: [facility] 10-27-2023 11:46-0500 Respiratory rate 16 /min Khurram Bob MD Work Phone: [facility] 10-27-2023 11:46-0500 SaO2% (BldA) [Mass fraction] 97 % Khurram Bob MD Work Phone: [facility] 10-27-2023 11:46-0500 Systolic blood pressure 134 mm[Hg] Khurram Bob MD Work Phone: [facility] 10-22-2023 10:18-0500 Body height 177.8 cm Khurram Bob MD Work Phone: [facility] 10-21-2023 17:52-0500 Body mass index (BMI) [Ratio] 22.96 kg/m2 Khurram Bob MD Work Phone: [facility] 10-21-2023 17:52-0500 Body weight 72.58 kg Khurram Bob MD Work Phone: [facility] 07-05-2023 07:36-0400 Body temperature 98.29 [degF] Steve Whitley MD Work Phone: [facility] 07-05-2023 07:36-0400 Diastolic blood pressure 90 mm[Hg] Steve Whitley MD Work Phone: [facility] 07-05-2023 07:36-0400 Heart rate 89 /min Steve Whitley MD Work Phone: [facility] 07-05-2023 07:36-0400 Respiratory rate 17 /min Steve Whitley MD Work Phone: [facility] 07-05-2023 07:36-0400 SaO2% (BldA) [Mass fraction] 97 % Steve Whitley MD Work Phone: [facility] 07-05-2023 07:36-0400 Systolic blood pressure 147 mm[Hg] Steve Whitley MD Work Phone: [facility] 07-03-2023 11:31-0400 Body height 177.8 cm Steve Whitley MD Work Phone: [facility] 04-15-2023 07:46-0400 Body temperature 97.2 [degF] Richie Acosta MD Work Phone: [facility] 04-15-2023 07:46-0400 Diastolic blood pressure 88 mm[Hg] Richie Acosta MD Work Phone: [facility] 04-15-2023 07:46-0400 Heart rate 82 /min Richie Acosta MD Work Phone: [facility] 04-15-2023 07:46-0400 Respiratory rate 18 /min Richie Acosta MD Work Phone: [facility] 04-15-2023 07:46-0400 SaO2% (BldA) [Mass fraction] 100 % Richie Acosta MD Work Phone: [facility] 04-15-2023 07:46-0400 Systolic blood pressure 142 mm[Hg] Richie Acosta MD Work Phone: [facility] 04-11-2023 08:39-0400 Body height 177.8 cm Richie Acosta MD Work Phone: [facility] 04-10-2023 08:28-0400 Body mass index (BMI) [Ratio] 22.96 kg/m2 Richie Acosta MD Work Phone: [facility] 04-10-2023 08:28-0400 Body weight 72.58 kg Richie Acosta MD Work Phone: [facility] 04-07-2023 12:14-0400 Body temperature 98.2 [degF] José Luis Bermudez MD Work Phone: [facility] 04-07-2023 12:14-0400 Diastolic blood pressure 83 mm[Hg] José Luis Bermudez MD Work Phone: [facility] 04-07-2023 12:14-0400 Heart rate 100 /min José Luis Bermudez MD Work Phone: [facility] 04-07-2023 12:14-0400 Respiratory rate 18 /min José Luis Bermudez MD Work Phone: [facility] 04-07-2023 12:14-0400 SaO2% (BldA) [Mass fraction] 97 % José Luis Bermudez MD Work Phone: [facility] 04-07-2023 12:14-0400 Systolic blood pressure 127 mm[Hg] José Luis Bermudez MD Work Phone: [facility] 04-04-2023 14:36-0400 Body height 177.8 cm José Luis Bermudez MD Work Phone: [facility] 04-02-2023 15:52-0400 Body mass index (BMI) [Ratio] 22.96 kg/m2 José Luis Bermudez MD Work Phone: [facility] 04-02-2023 15:52-0400 Body weight 72.58 kg José Luis Bermudez MD Work Phone: [facility] 02-14-2023 07:42-0400 Body temperature 97.3 [degF] Rubén Nesheim DO Work Phone: [facility] 02-14-2023 07:42-0400 Diastolic blood pressure 75 mm[Hg] Rubén Nesheim DO Work Phone: [facility] 02-14-2023 07:42-0400 Heart rate 91 /min Rubén Nesheim DO Work Phone: [facility] 02-14-2023 07:42-0400 Respiratory rate 17 /min Rubén Nesheim DO Work Phone: [facility] 02-14-2023 07:42-0400 SaO2% (BldA) [Mass fraction] 99 % Rubén Nesheim DO Work Phone: [facility] 02-14-2023 07:42-0400 Systolic blood pressure 123 mm[Hg] Rubén Nesheim DO Work Phone: [facility] 02-13-2023 05:53-0400 Body mass index (BMI) [Ratio] 26.14 kg/m2 Rubén Nesheim DO Work Phone: [facility] 02-13-2023 05:53-0400 Body weight 82.64 kg Rubén Nesheim DO Work Phone: [facility] 02-11-2023 11:27-0400 Body height 177.8 cm Rubén Nesheim DO Work Phone: [facility] 01-28-2023 10:14-0400 Body height 177.8 cm Beryl Friedt PA-C Work Phone: [facility] 01-28-2023 10:14-0400 Body mass index (BMI) [Ratio] 25.4 kg/m2 Beryl Friedt PA-C Work Phone: [facility] 01-28-2023 10:14-0400 Body temperature 98.2 [degF] Beryl Friedt PA-C Work Phone: [facility] 01-28-2023 10:14-0400 Body weight 80.29 kg Beryl Friedt PA-C Work Phone: [facility] 01-28-2023 10:14-0400 Diastolic blood pressure 64 mm[Hg] Beryl Friedt PA-C Work Phone: [facility] 01-28-2023 10:14-0400 Heart rate 86 /min Beryl Friedt PA-C Work Phone: [facility] 01-28-2023 10:14-0400 Systolic blood pressure 130 mm[Hg] Beryl Friedt PA-C Work Phone: [facility] 01-09-2023 14:06-0400 Diastolic blood pressure 77 mm[Hg] Júnior Lo MD Work Phone: [facility] 01-09-2023 14:06-0400 Heart rate 79 /min Júnior Lo MD Work Phone: [facility] 01-09-2023 14:06-0400 Respiratory rate 17 /min Júnior Lo MD Work Phone: [facility] 01-09-2023 14:06-0400 SaO2% (BldA) [Mass fraction] 100 % Júnior Lo MD Work Phone: [facility] 01-09-2023 14:06-0400 Systolic blood pressure 126 mm[Hg] Júnior Lo MD Work Phone: [facility] 01-09-2023 11:34-0400 Body height 177.8 cm Júnior Lo MD Work Phone: [facility] 01-09-2023 11:34-0400 Body mass index (BMI) [Ratio] 26.54 kg/m2 Júnior Lo MD Work Phone: [facility] 01-09-2023 11:34-0400 Body temperature 98.01 [degF] Júnior Lo MD Work Phone: [facility] 01-09-2023 11:34-0400 Body weight 83.92 kg Júnior Lo MD Work Phone: [facility] 01-05-2023 11:15-0400 Body temperature 97.3 [degF] Ruperto Fang MD Work Phone: [facility] 01-05-2023 11:15-0400 Heart rate 92 /min Ruperto Fang MD Work Phone: [facility] 01-05-2023 11:15-0400 Respiratory rate 15 /min Ruperto Fang MD Work Phone: [facility] 01-05-2023 11:15-0400 SaO2% (BldA) [Mass fraction] 99 % Ruperto Fang MD Work Phone: [facility] 01-05-2023 11:00-0400 Diastolic blood pressure 74 mm[Hg] Ruperto Fang MD Work Phone: [facility] 01-05-2023 11:00-0400 Systolic blood pressure 145 mm[Hg] Ruperto Fang MD Work Phone: [facility] 01-05-2023 07:55-0400 Body height 177.8 cm Ruperto Fang MD Work Phone: [facility] 01-05-2023 07:55-0400 Body mass index (BMI) [Ratio] 26.26 kg/m2 Ruperto Fang MD Work Phone: [facility] 01-05-2023 07:55-0400 Body weight 83.01 kg Ruperto Fang MD Work Phone: [facility] 12-25-2022 07:39-0500 Body temperature 97.59 [degF] Rubén Nesheim DO Work Phone: [facility] 12-25-2022 07:39-0500 Diastolic blood pressure 66 mm[Hg] Rubén Nesheim DO Work Phone: [facility] 12-25-2022 07:39-0500 Heart rate 92 /min Rubén Nesheim DO Work Phone: [facility] 12-25-2022 07:39-0500 Respiratory rate 16 /min Rubén Nesheim DO Work Phone: [facility] 12-25-2022 07:39-0500 SaO2% (BldA) [Mass fraction] 96 % Rubén Nesheim DO Work Phone: [facility] 12-25-2022 07:39-0500 Systolic blood pressure 104 mm[Hg] Rubén Nesheim DO Work Phone: [facility] 12-23-2022 07:04-0500 Body height 177.8 cm Rubén Nesheim DO Work Phone: [facility] 12-23-2022 01:13-0500 Body mass index (BMI) [Ratio] 25.46 kg/m2 Rubén Nesheim DO Work Phone: [facility] 12-23-2022 01:13-0500 Body weight 80.5 kg Rubén Nesheim DO Work Phone: [facility] 11-07-2022 11:38-0500 Body height 177.8 cm Ruperto Fang MD Work Phone: [facility] 11-07-2022 11:38-0500 Body mass index (BMI) [Ratio] 26.4 kg/m2 Ruperto Fang MD [facility] 11-07-2022 11:38-0500 Body temperature 96.69 [degF] Ruperto Fang MD Work Phone: [facility] 11-07-2022 11:38-0500 Body weight 83.46 kg Ruperto Fang MD Work Phone: [facility] 11-07-2022 11:38-0500 Diastolic blood pressure 105 mm[Hg] Ruperto Fang MD Work Phone: [facility] 11-07-2022 11:38-0500 Heart rate 103 /min [facility] Fang MD [facility] 11-07-2022 11:38-0500 Systolic blood pressure 163 mm[Hg] Ruperto Fang MD Work Phone: [facility] 06-25-2022 15:12-0400 Body height 177.8 cm Munira Kalka PA-C Work Phone: [facility] 06-25-2022 15:12-0400 Body weight 74.39 kg Munira Kalka PA-C Work Phone: [facility] 06-25-2022 15:12-0400 Diastolic blood pressure 88 mm[Hg] Munira Kalka PA-C Work Phone: [facility] 06-25-2022 15:12-0400 Heart rate 102 /min Munira Kalka PA-C Work Phone: [facility] 06-25-2022 15:12-0400 Systolic blood pressure 142 mm[Hg] Munira Kalka PA-C Work Phone: [facility] 06-06-2022 08:02-0400 Body temperature 97.11 [degF] Daniel Gombash DO Work Phone: [facility] 06-06-2022 08:02-0400 Diastolic blood pressure 81 mm[Hg] Daniel Gombash DO Work Phone: [facility] 06-06-2022 08:02-0400 Heart rate 96 /min Daniel Gombash DO Work Phone: [facility] 06-06-2022 08:02-0400 Respiratory rate 18 /min Daniel Gombash DO Work Phone: [facility] 06-06-2022 08:02-0400 SaO2% (BldA) [Mass fraction] 99 % Daniel Gombash DO Work Phone: [facility] 06-06-2022 08:02-0400 Systolic blood pressure 130 mm[Hg] Daniel Gombash DO Work Phone: [facility] 06-05-2022 12:25-0400 Body height 177.8 cm Daniel Gombash DO Work Phone: [facility] 06-05-2022 12:25-0400 Body mass index (BMI) [Ratio] 25.4 kg/m2 Daniel Ewing DO Work Phone: [facility] 06-05-2022 12:25-0400 Body weight 80.29 kg Daniel Ewing DO Work Phone: [facility] 05-15-2022 18:35-0400 Diastolic blood pressure 74 mm[Hg] Hany Jones MD Work Phone: [facility] 05-15-2022 18:35-0400 Heart rate 100 /min Hany Jones MD Work Phone: [facility] 05-15-2022 18:35-0400 Respiratory rate 16 /min Hany Jones MD Work Phone: [facility] 05-15-2022 18:35-0400 SaO2% (BldA) [Mass fraction] 97 % Hany Jones MD Work Phone: [facility] 05-15-2022 18:35-0400 Systolic blood pressure 127 mm[Hg] Hany Jones MD Work Phone: [facility] 05-15-2022 17:05-0400 Body height 177.8 cm Hany Jones MD Work Phone: [facility] 05-15-2022 17:05-0400 Body mass index (BMI) [Ratio] 25.4 kg/m2 Hany Jones MD Work Phone: [facility] 05-15-2022 17:05-0400 Body temperature 98.49 [degF] Hany Jones MD Work Phone: [facility] 05-15-2022 17:05-0400 Body weight 80.29 kg Hany Jones MD Work Phone: [facility] 06-25-2020 00:27-0400 BP Diastolic 96 mm[Hg] [facility] [place] 06-25-2020 00:27-0400 BP Systolic 153 mm[Hg] Jani [facility] , [place] 06-25-2020 00:27-0400 Pulse (Heart Rate) 97 /min Jani Bustillos [facility], [place] 06-25-2020 00:27-0400 Pulse Oximetry 95 % Jani Bustillos [facility] , [place] 06-25-2020 00:27-0400 Respiratory Rate 18 /min Jani Bustillos [facility], [place] 06-24-2020 22:04-0400 Body Temperature 97.3 [degF] Jani Bustillos [facility], [place] 06-24-2020 22:01-0400 BMI (Body Mass Index) 29.89 kg/m2 Jani Bustillos [facility], [place] 06-24-2020 22:01-0400 Body weight 94.48 kg [facility] , [place] 06-24-2020 22:01-0400 Height 177.8 cm Jani Quezada [facility] , [place] Encounters Encounter Date Encounter Type Care Provider Facility Start: 05-08-2025 Evaluation and management of inpatient Dr. Oksana Vázquez DO -Medical Surgical 3 Work Phone: Start: 10-03-2024 End: 10-08-2024 ambulatory Savanna Palacios RN [facility] Clinical Communication Start: 10-03-2024 End: 10-08-2024 Patient encounter procedure Savanna Palacios RN [facility] Clinical Communication Start: 07-22-2024 End: 08-01-2024 Evaluation and management of inpatient JANI QUEZADA [facility] Start: 07-10-2024 End: 07-21-2024 Evaluation and management of inpatient QUYNH MCKEON [facility] Start: 07-06-2024 End: 07-06-2024 Telephone encounter Verónica Pierce PA-C Work Phone: [facility] [place] Comment on above: Care Coordination Start: 07-04-2024 End: 07-04-2024 Subsequent hospital visit by physician [facility] Ct Exam Room [address] [facility] CT Comment on above: Arrived Start: 07-04-2024 End: 07-04-2024 Emergency department patient visit ASHLEY BELL [facility] Start: 07-04-2024 End: 07-10-2024 Evaluation and management of inpatient Ashley Bell MD Work Phone: [facility] Trauma Neuro Progressive Care Unit PCU 3W Comment on above: Metabolic acidosis, increased anion gap (Primary Dx); Ketosis (HCC); Alcohol use; Hypokalemia; Hypomagnesemia Start: 06-06-2024 ambulatory Jani Perezros Facility :[facility] Start: 05-30-2024 [facility] Start: 05-27-2024 ambulatory Kevin SALES Facility:[facility] Start: 05-23-2024 End: 08-21-2024 Refill Carmen Jeronimo MD Work Phone: [facility] Medical Surgical Unit MSU 4S Start: 05-21-2024 ambulatory Ruddy Galdamez Facility:[facility] Start: 05-21-2024 End: 05-26-2024 Evaluation and management of inpatient Ruddysom Esparzaeri Facility:[facility] Start: 05-02-2024 End: 05-03-2024 Emergency department [facility] Facility:[facility] Start: 04-22-2024 End: 04-30-2024 Evaluation and management of inpatient Kassandra Adkins MD Work Phone: [facility] Medical Surgical Unit MSU 4S Comment on above: Alcohol use disorder (Primary Dx) Start: 04-08-2024 End: 04-09-2024 Emergency department patient visit YUE [facility] Start: 04-05-2024 ambulatory Jani Quezada Facility :[facility] Start: 04-05-2024 End: 04-08-2024 Evaluation and management of inpatient Jani Quezada Facility:[facility] Start: 04-04-2024 End: 04-04-2024 Subsequent hospital visit by physician [facility] Ct Exam Room [address] [facility] CT Comment on above: Arrived Start: 04-04-2024 End: 04-04-2024 Emergency department patient visit Júnior Lo MD Work Phone: [facility] ED Comment on above: Syncope, unspecified syncope type (Primary Dx); Elevated lactic acid level Start: 03-08-2024 End: 03-09-2024 Evaluation and management of inpatient Nir Driscoll DO Work Phone: [facility] ED Comment on above: Hyponatremia (Primar y Dx); Alcoholic intoxication without complication (CMS/HCC) (HCC); Alcohol withdrawal syndrome without complication (HCC); High anion gap metabolic acidosis Start: 02-26-2024 ambulatory José Luis Alarcon RN [facility] Clinical Communication Start: 02-26-2024 Patient encounter procedure José Luis Alarcon RN [facility] Clinical Communication Start: 01-15-2024 End: 01-26-2024 Evaluation and management of inpatient Daniel Ewing DO Work Phone: [facility] Observation Unit 5E Comment on above: Alcohol withdrawal s yndrome without complication (HCC) (Primary Dx); COVID-19; Leg edema; Other pancytopenia (CMS/HCC) (HCC); Alcoholic cirrhosis of liver without ascites (CMS/HCC) (HCC); Mild recurrent major depression (HCC) Start: 12-25-2023 End: 12-26-2023 ambulatory MUNIRA STALEY Facility:[facility] Start: 12-24-2023 End: 12-24-2023 ambulatory JANI QUEZADA Facility:[facility] Start: 12-17-2023 End: 12-17-2023 Subsequent hospital visit by physician Carmen Jeronimo MD Work Phone: [facility] Addiction IOP Comment on above: Arrived Start: 12-15-2023 End: 12-15-2023 Subsequent hospital visit by physician Carmen Jeronimo MD Work Phone: [facility] Addiction IOP Comment on above: Arrived Start: 12-07-2023 End: 12-07-2023 Subsequent hospital visit by physician Carmen Jeronimo MD Work Phone: [facility] Addiction IOP Comment on above: Severe alcohol use d isorder (HCC) Start: 10-20-2023 End: 10-27-2023 Evaluation and management of inpatient Khurram Bob MD Work Phone: [facility] Medical Surgical Unit MSU 4S Comment on above: 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 (Primary Dx); Alcohol use disorder, severe, dependence (HCC); Nausea and vomiting, unspecified vomiting type; Chronic pain syndrome Start: 06-30-2023 End: 07-05-2023 Evaluation and management of inpatient Steve Whitley MD Work Phone: [facility] 2E TELEMETRY Comment on above: Hyponatremia (Primar y Dx) Start: 05-26-2023 ambulatory Corinne Romeo RN [facility] C linical Communication Start: 05-26-2023 Patient encounter procedure Corinne Romeo RN [facility] Clinical Communication Start: 04-09-2023 End: 04-15-2023 Evaluation and management of inpatient Richie Acosta MD Work Phone: [facility] 2E TELEMETRY Comment on above: Hyponatremia (Primar y Dx); DENNYS (acute kidney injury) (CMS/HCC) (HCC) Start: 04-05-2023 Telephone encounter Anna Abbott INTERPRETER Work Phone: [facility] Gastroenterology Comment on above: Hospital Follow-up Start: 04-02-2023 End: 04-02-2023 Subsequent hospital visit by physician [facility] Us Exam Room 2 [facility] Comment on above: Arrived Start: 04-02-2023 End: 04-07-2023 Evaluation and management of inpatient José Luis Bermudez MD Work Phone: [facility] 4E DETOX Comment on above: Alcohol withdrawal s yndrome without complication (HCC) (Primary Dx); Alcohol use disorder Start: 02-16-2023 Telephone encounter Casandra Salinas RN [facility] Clinical Communication Comment on above: Hospital Follow-up Start: 02-10-2023 End: 02-14-2023 Evaluation and management of inpatient Rubén G Viktor DO Work Phone: [facility] 2E TELEMETRY Comment on above: Hyponatremia (Primar y Dx); Alcohol dependence with unspecified alcohol-induced disorder (HCC); Chronic pain syndrome; Myalgia; Acute kidney injury (CMS/HCC) (HCC) Start: 01-28-2023 End: 01-28-2023 Postop follow up visit related to original px Beryl Holder PA-C Work Phone: [facility] Advanced Laproscopic Surgery Comment on above: Encounter for postop erative care (Primary Dx); Gallbladder sludge; 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) Start: 01-12-2023 Telephone encounter Ruperto castelan MD Work Phone: [facility] Advanced Laproscopic Surgery Comment on above: Advice Only Start: 01-09-2023 End: 01-09-2023 Emergency department patient visit Júnior Lo MD Work Phone: [facility] ED Comment on above: Ascites due to alcoh olic cirrhosis (CMS/HCC) (HCC) (Primary Dx) Start: 01-05-2023 End: 01-05-2023 Subsequent hospital visit by physician Ruperto Fang MD Work Phone: [facility] OR Comment on above: RUQ pain (Primary Dx ); Right upper quadrant pain; Other specified diseases of gallbladder Start: 12-30-2022 Telephone encounter Beryl chandler PA-C Work Phone: [facility] Advanced Laproscopic Surgery Start: 12-27-2022 Telephone encounter Leah Kimble RN [facility] Clinical Communication Comment on above: Hospital Follow-up Start: 12-22-2022 End: 12-22-2022 Subsequent hospital visit by physician [facility] Ct Exam Room [address] [facility] CT Comment on above: Arrived Canceled (Patient) Start: 12-22-2022 End: 12-25-2022 Evaluation and management of inpatient Rubénginna Rogerskvng ALCANTARA Work Phone: [facility] 4S TELEMETRY Comment on above: DENNYS (acute kidney in jury) (CMS/HCC) (HCC) (Primary Dx); Acute kidney injury (CMS/HCC) (HCC) Start: 12-11-2022 Orders Only Beryl Holder PA-C Work Phone: [facility] Advanced Laproscopic Surgery Comment on above: Preop examination (P rimary Dx) Start: 12-11-2022 Preprocedural examination done Beryl SHAH-C Work Phone: [facility] Advanced Laproscopic Surgery Start: 11-20-2022 Telephone [...] ascites (CMS/HCC) (HCC) Start: 07-11-2022 Telephone encounter Muniraparish RAMIREZC [facility] Comment on above: Results Start: 07-08-2022 Telephone encounter Muniranaty SHAH-C Work Phone[facility] Comment on above: Results Start: 07-08-2022 End: 07-08-2022 Subsequent hospital visit by physician [facility] 2 Work Phone: Radiology Comment on above: History of hepatitis C [Z86.19] Start: 06-25-2022 End: 06-25-2022 Patient encounter procedure Munira Staley PA-C Work Phone: [facility] Comment on above: Abnormal CT scan, st omach (Primary Dx); History of esophageal varices; Diarrhea, unspecified type; History of hepatitis C; Abnormal results of liver function studies Start: 06-04-2022 End: 06-06-2022 Evaluation and management of inpatient Arturo Atkinson [facility] Start: 06-03-2022 End: 06-06-2022 Evaluation and management of inpatient Daniel Ewing DO Work Phone: [facility] 2E TELEMETRY Comment on above: Syncope and collapse (Primary Dx); Hyponatremia; Acute alcoholic intoxication without complication (HCC); Spinal stenosis of lumbar region, unspecified whether neurogenic claudication present Start: 05-15-2022 End: 05-15-2022 Emergency department patient visit Jani Alvarezmarti [facility] Start: 05-15-2022 End: 05-15-2022 Emergency department patient visit Hany Jones MD Work Phone: [facility] Comment on above: Acute exacerbation o f chronic low back pain (Primary Dx); Non-intractable vomiting with nausea, unspecified vomiting type; Dehydration Start: 06-24-2020 End: 06-25-2020 Emergency department patient visit Jani [facility] Comment on above: Right flank pain (Pr imary Dx); Penile discharge; Malaise and fatigue; Nausea Start: 07-19-2019 End: 07-19-2019 Subsequent hospital visit by physician Daniel London Work Phone: [facility] Comment on above: Arrived Start: 07-16-2019 End: 07-16-2019 Subsequent hospital visit by physician Daniel London Work Phone: [facility] Laboratory Start: 06-18-2017 End: 06-20-2017 Evaluation and management of inpatient [facility] Start: 06-10-2017 End: 06-10-2017 Ambulatory [facility] Procedures Date Procedure Procedure Detail Performing Clinician Start: 05-07-2025 Methadone measuremen t, urine Dr. Jani Quezada MD Work Phone: Start: 05-07-2025 CT of head without contrast Dr. Jani Quezada MD Work Phone: Start: 07-11-2024 Lipid 1996 panel - S tomas or Plasma Verónica Pierce PA-C Work Phone: Start: 07-11-2024 Thyrotropin [Units/v olume] in Serum or Plasma Verónica Pierce PA-C Work Phone: Start: 07-10-2024 SARS-CoV-2 (COVID-19 ) Ag [Presence] in Respiratory specimen by Rapid immunoassay Emiliano Lawson. Church DO Work Phone: Start: 07-10-2024 Basic metabolic pane l calcium total Emiliano T. Church DO Work Phone: Start: 07-09-2024 Basic metabolic pane l calcium total Emiliano T. Church DO Work Phone: Start: 07-08-2024 Basic metabolic pane l calcium total Emiliano T. Church DO Work Phone: Start: 07-07-2024 Basic metabolic pane l calcium total Emiliano Leavittveland DO Work Phone: Start: 07-06-2024 Basic metabolic pane l calcium total Emiliano Lawson. Church DO Work Phone: Start: 07-05-2024 Fat/lipids feces qualitative Verónicaty Spencery PA-C Work Phone: Start: 07-05-2024 Ct abdomen & pelvis w/contrast material Verónica Spencery PA-C Work Phone: Start: 07-05-2024 Us abdominal real ti me w/image documentation Virgilio Almanza MD Work Phone: Start: 07-05-2024 Iadna-dna/rna gi pth gn multiplex probe tq 12-25 Virgilio Almanza MD Work Phone: Start: 07-05-2024 Inf agent det nuclei c acid clostridium amp probe Verónica Spencery PA-C Work Phone: Start: 07-05-2024 Basic metabolic pane [...] Glucose quantitative blood xcpt reagent strip Ced Okeefe MD Work Phone: Start: 04-30-2024 Glucose quantitative blood xcpt reagent strip Ced Oekefe MD Work Phone: Start: 04-29-2024 Glucose quantitative blood xcpt reagent strip Ced Okeefe MD Work Phone: Start: 04-29-2024 Glucose quantitative blood xcpt reagent strip Ced Okeefe MD Work Phone: Start: 04-29-2024 Glucose quantitative blood xcpt reagent strip Ced Okeefe MD Work Phone: Start: 04-29-2024 Glucose quantitative blood xcpt reagent strip Ced Okeefe MD Work Phone: Start: 04-28-2024 Glucose quantitative blood xcpt reagent strip Ced Okeefe MD Work Phone: Start: 04-28-2024 Glucose quantitative blood xcpt reagent strip Ced Okeefe MD Work Phone: Start: 04-28-2024 Glucose quantitative blood xcpt reagent strip Ced Okeefe MD Work Phone: Start: 04-27-2024 Glucose quantitative blood xcpt reagent strip Ced Okeefe MD Work Phone: Start: 04-27-2024 Glucose quantitative blood xcpt reagent strip Ced Okeefe MD Work Phone: Start: 04-27-2024 Glucose quantitative blood xcpt reagent strip Ced Okeefe MD Work Phone: Start: 04-27-2024 Glucose quantitative blood xcpt reagent strip Ced Okeefe MD Work Phone: Start: 04-27-2024 Blood count complete auto&auto difrntl wbc Reid Ilodi DO Work Phone: Start: 04-27-2024 Comprehensive metabo lic panel Ced Okeefe MD Work Phone: Start: 04-26-2024 Glucose quantitative blood xcpt reagent strip Ced Oekefe MD Work Phone: Start: 04-26-2024 Glucose quantitative blood xcpt reagent strip Ced Okeefe MD Work Phone: Start: 04-26-2024 Blood count complete auto&auto difrntl wbc Reid Fu DO Work Phone: Start: 04-26-2024 Glucose quantitative blood xcpt reagent strip Ced Okeefe MD Work Phone: Start: 04-26-2024 Glucose quantitative blood xcpt reagent strip Ced Okeefe MD Work Phone: Start: 04-25-2024 Glucose quantitative [...] strip Reid Fu DO Work Phone: Start: 04-23-2024 Glucose quantitative [...] Glucose quantitative blood xcpt reagent strip Nir Merino Yamila DO Work Phone: Start: 03-09-2024 VOLATILE PANEL,SERUM Krystle jesica Driscoll DO Work Phone: Start: 03-08-2024 Blood gases any comb ination ph pco2 po2 co2 hco3 Nir Gracebryan DO Work Phone: Start: 03-08-2024 SARS-CoV-2 (COVID-19 ) Ag [Presence] in Respiratory specimen by Rapid immunoassay Marjan Reyes MD Work Phone: Start: 03-08-2024 Comprehensive metabo lic panel Marjan Reyes MD Work Phone: Start: 03-08-2024 End: 03-08-2024 Drug screen analgesics non-opioid 1 or 2 iNr Wilber Driscoll DO Work Phone: Start: 01-26-2024 Comprehensive metabo lic panel Radha Berry MD Work Phone: Start: 01-25-2024 Basic metabolic pane l calcium total Ethel Kuzmin DO Work Phone: Start: 01-24-2024 Basic metabolic pane l calcium total Ethel Enamoradomin DO Work Phone: Start: 01-23-2024 Basic metabolic pane l calcium total Ethel Enamoradomin DO Work Phone: Start: 01-22-2024 Inf agent det nuclei c acid clostridium amp probe Etheleliza Enamoradomin DO Work Phone: Start: 01-22-2024 Comprehensive metabo lic panel Radha Berry MD Work Phone: Start: 01-21-2024 Dup-scan xtr veins c omplete bilateral study Ethel Anna DO Work Phone: Start: 01-21-2024 Comprehensive metabo lic panel Radha Berry MD Work Phone: Start: 01-20-2024 Assay of free thyroxine Ethel Anna DO Work Phone: Start: 01-20-2024 Comprehensive metabo lic panel Radha Berry MD Work Phone: Start: 01-19-2024 Ecg routine ecg w/le ast 12 lds trcg only w/o i&r Ethel Anna DO Work Phone: Start: 01-19-2024 Thyrotropin [Units/v olume] in Serum or Plasma Daniel Ewing DO Work Phone: Start: 01-19-2024 Comprehensive metabo lic panel Radha Berry MD Work Phone: Start: 01-18-2024 Comprehensive metabo lic panel Hayes Scott MD Work Phone: Start: 01-17-2024 Comprehensive metabo lic panel Hayes Scott MD Work Phone: Start: 01-16-2024 Comprehensive metabo lic panel Hayes Scott MD Work Phone: Start: 01-15-2024 SARS-CoV-2 (COVID-19 ) Ag [Presence] in Respiratory specimen by Rapid immunoassay Daniel A Gombash DO Work Phone: Start: 01-15-2024 Urinalysis complete panel - Urine Daniel Ewing DO Work Phone: Start: 01-15-2024 Urnls dip stick/tabl et reagent auto microscopy Daniel Ewing DO Work Phone: Start: 01-15-2024 Comprehensive metabo lic panel Daniel Ewing DO Work Phone: Start: 01-15-2024 End: 01-15-2024 Drug test def 1-7 classes Danielpatricia pineda DO Work Phone: Start: 10-27-2023 Comprehensive metabo [...] Start: 10-22-2023 Blood count complete automated Kacie M Esterle DO Work Phone: Start: 10-21-2023 Assay of lipase Kacie M Esterle DO Work Phone: Start: 10-21-2023 Blood count complete automated Kacie M Esterle DO Work Phone: Start: 10-21-2023 Manual differential performed [Presence] in Blood Kacie Benz DO Work Phone: Start: 10-20-2023 Comprehensive metabo [...] metabolic pane l calcium total Kacie Cabral Esterkrzysztof DO Work Phone: Start: 07-04-2023 Basic metabolic pane l calcium total Kacie Cabral Esterkrzysztof DO Work Phone: Start: 07-04-2023 Basic metabolic pane l calcium total Ophelia Maryagliante SALON STYLIST - INTERPRETER Work Phone: Start: 07-04-2023 Basic metabolic pane l calcium total Ophelia Maryagliante SALON STYLIST - INTERPRETER Work Phone: Start: 07-03-2023 Basic metabolic pane l calcium total Ophelia Maryagliantargelia SALON STYLIST - INTERPRETER Work Phone: Start: 07-03-2023 Basic metabolic pane l calcium total Ophelia Ramos SALON STYLIST - [facility] Work Phone: Start: 07-03-2023 Basic metabolic pane l calcium total Ophelia Ramos SALON STYLIST - [facility] Work Phone: Start: 07-02-2023 End: 07-03-2023 Basic metabolic panel calcium total Ophelia Ramos SALON STYLIST - [facility] Work Phone: Start: 07-02-2023 Basic metabolic pane l calcium total Kacie Cabral Esterle DO Work Phone: Start: 07-02-2023 Comprehensive metabo lic panel Ophelia Ramos SALON STYLIST - [facility] Work Phone: Start: 07-01-2023 Basic metabolic pane l calcium total Ophelia Ramos SALON STYLIST - [facility] Work Phone: Start: 07-01-2023 Basic metabolic pane l calcium total Ophelia Rmaos SALON STYLIST - [facility] Work Phone: Start: 07-01-2023 Basic metabolic pane l calcium total Ophelia Ramos SALON STYLIST - [facility] Work Phone: Start: 07-01-2023 Comprehensive metabo lic [...] Start: 04-10-2023 Assay of osmolality urine Ophelia MishaBaylee Ramos SALON STYLIST - INTERPRETER Work Phone: Start: 04-10-2023 Urnls dip stick/tabl et rgnt auto w/o microscopy Ophelia Ramos SALON STYLIST - INTERPRETER Work Phone: Start: 04-10-2023 Comprehensive metabo lic panel Rhiannon Barker MD Work Phone: Start: 04-10-2023 End: 04-10-2023 Assay of osmolality blood Rhiannon Barker MD Work Phone: Start: 04-10-2023 Thyrotropin [Units/v olume] in Serum or Plasma Richie Acosta MD Work Phone: Start: 04-09-2023 Iadna-dna/rna gi pth gn multiplex probe tq - Richie Acosta MD Work Phone: Start: 04-09-2023 [...] Phone: Start: 04-04-2023 Hepatitis c antibody Ja sammie Stein DO Work Phone: Start: 04-04-2023 End: 04-04-2023 Iaad ia hiv-1 ag w/hiv-1 & hiv-2 antbdy single Inder Stein DO Work Phone: Start: 04-04-2023 Radiologic exam ches t single view Inder Stein DO Work Phone: Start: 04-02-2023 Blood gases any comb ination ph pco2 po2 co2 hco3 José Luis Bermudez MD Work Phone: Start: 04-02-2023 Radiologic exam comp lete acute abdomen series José Luis Bemrudez MD Work Phone: Start: 04-02-2023 SARS-CoV-2 (COVID-19 [...] Thyrotropin [Units/volume] in Serum or Plasma Inder Stein DO Work Phone: Start: 02-14-2023 Basic metabolic pane l calcium total Ophelia Ramos SALON STYLIST - INTERPRETER Work Phone: Start: 02-13-2023 Sodium serum plasma or whole blood Ophelia Sanchez Travnilesh SALON STYLIST - INTERPRETER Work Phone: Start: 02-13-2023 Sodium serum plasma or whole blood Ophelia Sanchez Travnilesh SALON STYLIST - INTERPRETER Work Phone: Start: 02-12-2023 Basic metabolic pane l calcium total Kacie Benz DO Work Phone: Start: 02-12-2023 Sodium serum plasma or whole blood Ophelia Ramos SALON STYLIST - INTERPRETER Work Phone: Start: 02-12-2023 Sodium serum plasma or whole blood Ophelia Ramos SALON STYLIST - INTERPRETER Work Phone: Start: 02-12-2023 Us abdominal real ti me w/image documentation Ana Callaway MD Work Phone: Start: 02-12-2023 Comprehensive metabo lic panel Kacie Benz DO Work Phone: Start: 02-11-2023 Sodium serum plasma or whole blood Ophelia Ramos APRN - INTERPRETER Work Phone: Start: 02-11-2023 End: 02-11-2023 Sodium serum plasma or whole blood Ophelia Ramos SALON STYLIST - INTERPRETER Work Phone: Start: 02-11-2023 Assay of osmolality urine Ophelia Ramos SALON STYLIST wripl INTERPRETER Work Phone: Start: 02-11-2023 Urnls dip stick/tabl et rgnt auto w/o microscopy Ophelia Ramos SALON STYLIST wripl INTERPRETER Work Phone: Start: 02-11-2023 Iadna-dna/rna gi pth [...] [Units/v olume] in Serum or Plasma Rubén Viktor DO Work Phone: Start: 02-11-2023 Basic metabolic pane l calcium total Rubén G Nesheim DO Work Phone: Start: 02-10-2023 Urinalysis complete panel - Urine Rubén G Sueheim DO Work Phone: Start: 02-10-2023 Urnls dip stick/tabl et rgnt auto w/o microscopy Rubén G Nesheim DO Work Phone: Start: 02-10-2023 Comprehensive metabo lic panel Rubén G Nesheim DO Work Phone: Start: 01-05-2023 Glucose quantitative [...] Work Phone: Start: 12-23-2022 Chloride urine Ophelia Maldonado SALON STYLIST - INTERPRETER Work Phone: Start: 12-23-2022 Urnls dip stick/tabl et rgnt auto w/o microscopy Ophelia Maldonado SALON STYLIST - INTERPRETER Work Phone: Start: 12-23-2022 Glucose quantitative blood xcpt reagent strip Kacie M Esterle DO Work Phone: Start: 12-23-2022 End: 12-23-2022 Glucose quantitative blood xcpt reagent strip Kacie M Esterle DO Work Phone: Start: 12-23-2022 Basic metabolic pane l calcium total Kacie M Esterle DO Work Phone: Start: 12-23-2022 Manual differential [...] abdominal real ti me w/image limited Munira RAMIREZC Work Phone: Start: 06-06-2022 Gluc bld gluc mntr d ev cleared fda spec home use Marlyn Dash MD Work Phone: Start: 06-06-2022 Gastric emptying dorie ging study Arturo Atkinson MD Work Phone: Start: 06-06-2022 Gluc bld gluc mntr d ev cleared fda spec home use Marlyn Dash MD Work Phone: Start: 06-06-2022 Comprehensive metabo lic panel Marlyn Dash MD Work Phone: Start: 06-06-2022 Virus centrifuge enh ncd id imfluor stain ea Anna Stewart SALON STYLIST - INTERPRETER Work Phone: Start: 06-05-2022 Sodium serum plasma or whole blood Marlyn Dash MD Work Phone: Start: 06-05-2022 Gluc bld gluc mntr d ev cleared fda spec home use Marlyn Dash MD Work Phone: Start: 06-05-2022 Sodium serum plasma or whole blood Marlyn Dash MD Work Phone: Start: 06-05-2022 Gluc bld gluc mntr d ev cleared fda spec home use Daniel A Gombash DO Work Phone: Start: 06-05-2022 HM ENDOSCOPY REPORT Phy sician Generic Start: 06-05-2022 End: 06-05-2022 Sodium serum plasma or whole blood Marlyn Dash MD Work Phone: Start: 06-05-2022 End: 06-05-2022 Comprehensive metabolic panel Marlyn Dash MD Work Phone: Start: 06-05-2022 Gluc bld gluc mntr d ev cleared fda spec home use Daniel A Gombash DO Work Phone: Start: 06-04-2022 Sodium serum plasma or whole blood Marlyn Dash MD Work Phone: Start: 06-04-2022 Gluc bld gluc mntr d ev cleared fda spec home use Marlyn Dash MD Work Phone: Start: 06-04-2022 End: 06-04-2022 Sodium serum plasma or whole blood Marlyn Dash MD Work Phone: Start: 06-04-2022 End: 06-04-2022 Cyanocobalamin vitamin b-12 Jonny Cerdal [employer] - INTERPRETER Work Phone: Start: 06-04-2022 Hepatic function panel Jonnytim Cerdal [employer] - INTERPRETER Work Phone: Start: 06-04-2022 Manual Differential panel - Blood Unknown Provider Result Start: 06-04-2022 ADD ON LAB TEST Maldonado Stewart [employer] - INTERPRETER Work Phone: Start: 06-04-2022 Hemoglobin glycosylated a1c Marlyn Dash MD Work Phone: Start: 06-04-2022 Iadna-dna/rna gi pth gn multiplex probe tq 12-25 Marlyn Dash MD Work Phone: Start: 06-04-2022 Inf agent det nuclei c acid clostridium amp probe Marlyn Dash MD Work Phone: Start: 06-04-2022 Gluc bld gluc mntr d ev cleared fda spec home use Daniel A Gombash DO Work Phone: Start: 06-04-2022 Comprehensive metabo lic panel Marlyn Dash MD Work Phone: Start: 06-04-2022 Thyrotropin [Units/v olume] in Serum or Plasma Ruperto Fang MD Work Phone: Start: 06-03-2022 Urnls dip stick/tabl et rgnt auto w/o microscopy Daniel Sullivanash DO Work Phone: Start: 06-03-2022 Assay of ethanol Daniel Sullivanash DO Work Phone: Start: 06-03-2022 Comprehensive metabo lic panel Daniel Sullivanash DO Work Phone: Start: 06-03-2022 Ecg routine ecg w/le ast 12 lds w/i&r Daniel Sullivanash DO Work Phone: Start: 05-15-2022 Ct abdomen & pelvis w/o contrast material Hany Jones MD Work Phone: Start: 05-15-2022 Basic metabolic pane l calcium total Hany Jones MD Work Phone: Start: 05-15-2022 Urnls dip stick/tabl et rgnt auto w/o microscopy Hany Jones MD Work Phone: Start: 06-24-2020 Ct abdomen & pelvis w/o contrast material Mack N Philip Work Phone: Start: 06-24-2020 Assay of lipase Mack N Polagusto Work Phone: Start: 06-24-2020 Blood count complete auto&auto difrntl wbc Mack N Polce Work Phone: Start: 06-24-2020 Comprehensive metabo lic panel Mack N Polce Work Phone: Start: 06-24-2020 Urnls dip stick/tabl et rgnt auto w/o microscopy Mack N Polce Work Phone: Start: 06-24-2020 Radiologic exam ches t single view Mack N Ismaelagusto Work Phone: Start: 07-19-2019 Ct abdomen w/contras t material Daniel London Work Phone: Start: 07-19-2019 Radex ribs unilatera l 2 views Daniel London Work Phone: Start: 07-16-2019 Assay of urea nitrog en quantitative Daniel London Work Phone: Start: 07-16-2019 Creatinine blood Daniel London Work Phone: Plan of Treatment Date Care Activity Detail Author Start: 08-26-2028 DTaP/Tdap/Td vaccine (2 - Td or Tdap) DTaP/Tdap/Td vaccine (2 - Td or Tdap) [facility] Start: 08-26-2028 DTaP/Tdap/Td Vaccines (2 - Td or Tdap) DTaP/Tdap/Td Vaccines (2 - Td or Tdap) [facility] Start: 07-29-2025 Diabetes: Estimated Glomerular Filtration Rate for Kidney Health Diabetes: Estimated Glomerular Filtration Rate for Kid[facility] Start: 07-26-2025 Diabetes: Estimated Glomerular Filtration Rate for Kidney Health Diabetes: Estimated Glomerular Filtration Rate for [facility] Start: 07-22-2025 Hemoglobin A1c measurement Diabetes: Hemoglobin A1C [facility] Start: 07-16-2025 Diabetes: Estimated Glomerular Filtration Rate for [facility] Diabetes: Estimated Glomerular Filtration Rate for [facility] Start: 07-12-2025 Diabetes: Estimated Glomerular Filtration Rate for [facility] Diabetes: Estimated Glomerular Filtration Rate for [facility] Start: 07-11-2025 Lipid panel Lipid Panel [facility] Start: 07-11-2025 Thyroid stimulating hormone measurement TSH Level [facility] Start: 07-10-2025 Diabetes: Estimated Glomerular Filtration Rate for Kid[facility] Diabetes: Estimated Glomerular Filtration Rate for [facility] Start: 07-07-2025 Diabetes: Estimated Glomerular Filtration Rate for [facility] Diabetes: Estimated Glomerular Filtration Rate for [facility] Start: 07-06-2025 Diabetes: Estimated Glomerular Filtration Rate for [facility] Diabetes: Estimated Glomerular Filtration Rate for [facility] Start: 07-05-2025 Diabetes: Estimated Glomerular Filtration Rate for [facility] Diabetes: Estimated Glomerular Filtration Rate for [facility] Start: 05-08-2025 Clostridioides difficile DNA [Presence] in Unspecified specimen by SHANE with probe detection [facility] Start: 05-08-2025 Lactoferrin [Presence] in Stool by Immunoassay [facility] Start: 05-08-2025 Nucleic acid assay [facility] Start: 05-08-2025 Verification routine [facility] Start: 05-08-2025 Admission procedure [facility] Start: 05-08-2025 Hospital admission, emergency, from emergency room, medical nature [facility] Start: 04-27-2025 Diabetes: Estimated Glomerular Filtration Rate for Kidney [facility] Diabetes: Estimated Glomerular Filtration Rate for [facility] Start: 04-23-2025 Hemoglobin A1c measurement Diabetes: Hemoglobin A1C [facility] Start: 04-23-2025 Thyroid stimulating hormone measurement TSH Level [facility] Start: 04-04-2025 Diabetes: Estimated Glomerular Filtration Rate for [facility] Diabetes: Estimated Glomerular Filtration Rate for [employer] [facility] Start: 03-08-2025 Diabetes: Estimated Glomerular Filtration Rate for [facility] Diabetes: Estimated Glomerular Filtration Rate for [facility] Start: 01-25-2025 Diabetes: Estimated Glomerular Filtration Rate for [facility] Diabetes: Estimated Glomerular Filtration Rate for [facility] Start: 01-21-2025 Depression Monitoring Depression Monitoring [facility] Start: 01-18-2025 Thyroid stimulating hormone measurement TSH Level [facility] Start: 01-07-2025 Depression Monitoring Depression Monitoring [facility] Start: 01-02-2025 Depression Monitoring Depression Monitoring [facility] Start: 10-26-2024 Depression Monitoring Depression Monitoring [facility] Start: 09-13-2024 End: 09-13-2024 Patient encounter procedure 09/13/2024 3:00 PM EST Office Visit [facility] [place] [address] [address] Ana Armas PA-C [address] [facility] [address] [place], [place] [id number] [facility] [place] Start: 07-23-2024 Depression Monitoring Depression Monitoring [facility] Start: 07-23-2024 Depresssion Monitoring Depresssion Monitoring [facility] Start: 06-19-2024 COVID-19 Vaccine ( season) COVID-19 Vaccine () [facility] Start: 06-19-2024 COVID-19 Vaccine ( season) COVID-19 Vaccine () [facility] Start: 06-19-2024 Influenza vaccination [facility] Start: 06-06-2024 Depresssion Monitoring Depresssion Monitoring [facility] Start: 04-10-2024 Thyroid stimulating hormone measurement TSH Level [facility] Start: 04-02-2024 Hemoglobin A1c measurement Diabetes: Hemoglobin A1C [facility] Start: 04-02-2024 Thyroid stimulating hormone measurement TSH Level [facility] Start: 02-12-2024 Thyroid stimulating hormone measurement TSH Level [facility] Start: 01-21-2024 End: 01-21-2024 Patient encounter procedure 01/21/2024 5:30 PM EDT Appointment [facility] [address] [place] [address] Carmen Jeronimo MD [address] [place] [phone] [facility] Start: 01-19-2024 End: 01-19-2024 Patient encounter procedure 01/19/2024 5:30 PM EDT Appointment [facility] [address] [place] [address] Carmen Jeronimo MD [address] [place] [phone] [facility] Start: 01-18-2024 End: 01-18-2024 Patient encounter procedure 01/18/2024 5:30 PM EDT Appointment [facility] [address] [place] [address] Carmen Jeronimo MD [address] [place] [phone] [facility] Start: 01-14-2024 End: 01-14-2024 Patient encounter procedure 01/14/2024 5:30 PM EDT Appointment [facility] [address] [place] [address] Carmen Jeronimo MD [address] [place] [phone] [facility] Start: 01-12-2024 End: 01-12-2024 Patient encounter procedure 01/12/2024 5:30 PM EDT Appointment [facility] [address] [place] [address] Carmen Jeronimo MD [address] [place] [phone] [facility] Start: 01-11-2024 End: 01-11-2024 Patient encounter procedure 01/11/2024 5:30 PM EDT Appointment [facility] [address] [place] [address], [place] [address] Carmen Jeronimo MD [address] [place] [phone] [facility] Start: 01-07-2024 End: 01-07-2024 Patient encounter procedure 01/07/2024 5:30 PM EDT Appointment [facility] [address] [place] [address], [place] [address] Carmen Jeronimo MD [address] [place] [phone] [facility] Start: 01-05-2024 End: 01-05-2024 Patient encounter procedure 01/05/2024 5:30 PM EDT Appointment [facility] [address] [place] [address] Carmen Jeronimo MD [address] [place] [phone] [facility] Start: 01-04-2024 End: 01-04-2024 Patient encounter procedure 01/04/2024 5:30 PM EDT Appointment [facility] [address] [place] [address] Carmen Jeronimo MD [address] [place] [phone] [facility] Start: 12-31-2023 End: 12-31-2023 Patient encounter procedure 12/31/2023 5:30 PM EDT Appointment [facility] [address] [facility] [place] [address] Carmen Jeronimo MD [address] [place] [phone] [facility] Start: 12-29-2023 End: 12-29-2023 Patient encounter procedure 12/29/2023 5:30 PM EDT Appointment [facility] [address] [place] [address] Carmen Jeronimo MD [address] [place] [phone] [facility] Start: 12-28-2023 End: 12-28-2023 Patient encounter procedure 12/28/2023 5:30 PM EDT Appointment [facility] [address] [place] [address] Carmen Jeronimo MD [address] [place] [phone] [facility] Start: 12-24-2023 End: 12-24-2023 Patient encounter procedure 12/24/2023 5:30 PM EST Appointment [facility] [address] [place] [address] Carmen Jeronimo MD [address] [place] [phone] [facility] Start: 12-22-2023 End: 12-22-2023 Patient encounter procedure 12/22/2023 5:30 PM EST Appointment [facility] [address] [place] [phone] Carmen Jeronimo MD [address] [place] [phone] [facility] Start: 12-21-2023 End: 12-21-2023 Patient encounter procedure 12/21/2023 5:30 PM EST Appointment [facility] [address] [place] [phone] Carmen Jeronimo MD [address] [place] [phone] [facility] Start: 12-17-2023 End: 12-17-2023 Patient encounter procedure [facility] Start: 12-15-2023 End: 12-15-2023 Patient encounter procedure [facility] Start: 10-19-2023 Medicare Advantage Annual Wellness Visit Medicare Advantage Annual Wellness Visit [facility] Start: 10-03-2023 Depresssion Monitoring Depresssion Monitoring [facility] Start: 07-03-2023 Hemoglobin A1c measurement Diabetes: Hemoglobin A1C [facility] Start: 06-19-2023 COVID-19 Vaccine ( season) COVID-19 Vaccine () [facility] Start: 06-19-2023 Influenza vaccination [facility] Start: 06-06-2023 Screening for malignant neoplasm of colon [facility] Start: 06-04-2023 Hemoglobin A1c measurement A1C test (Diabetic or Prediabetic) [facility] Start: 06-04-2023 Thyroid stimulating hormone measurement TSH Level [facility] Start: 04-27-2023 End: 04-15-2024 Basic metabolic 1998 panel - Serum or Plasma Basic metabolic panel Lab Routine Hyponatremia Expected: 04/27/2023 (Approximate), Expires: 04/15/2024 [facility] Work Phone: Comment on above: Expected: 04/27/2023 (Approximate), Expi res: 04/15/2024 Start: 03-31-2023 Hemoglobin A1c measurement Diabetes: Hemoglobin A1C [facility] Start: 02-15-2023 End: 02-15-2024 Basic metabolic 1998 panel - Serum or Plasma Basic metabolic panel Lab Routine Hyponatremia Acute kidney injury (CMS/HCC) (HCC) Expected: 02/15/2023 (Approximate), Expires: 02/15/2024 [facility] Identified Work Phone: Comment on above: Expected: 02/15/2023 (Approximate), Expi res: 02/15/2024 Start: 01-21-2023 End: 01-21-2023 Patient encounter procedure 01/21/2023 Office Visit General Surgery [facility] Start: 01-05-2023 End: 01-05-2023 Admission to same day surgery center 01/05/2023 Surgery Procedural Ruperto Fang MD [address] [place] [address] [address] [place] [address] LAPAROSCOPIC CHOLECYSTECTOMY, POSSIBLE OPEN [21315 (CPT )] [facility] Comment on above: LAPAROSCOPIC CHOLECYSTECTOMY, POSSIBLE O PEN [12791 (CPT )] Start: 01-05-2023 End: 01-05-2023 Anesthesia consultation 01/05/2023 Anesthesia Event Procedural Erika Lazar, [employer] STYLIST - INTERPRETER [address] [place] [address] [facility] Start: 01-05-2023 End: 01-05-2023 Laparoscopy surg cholecystectomy LAPAROSCOPIC CHOLECYSTECTOMY Right upper quadrant pain Other specified diseases of gallbladder 01/05/2023 9:30 AM EDT [facility] Start: 01-05-2023 Subsequent hospital visit by physician 01/05/2023 Hospital Encounter Procedural Ruperto Fang MD [address] [place] [address] [address] [place] [address] [facility] Start: 12-29-2022 End: 12-29-2022 Admission to establishment [facility] Pre-Admit Testing Start: 12-11-2022 End: 12-11-2023 Hepatic function 2000 panel - Serum or Plasma Hepatic function panel Lab Routine Preop examination Expected: 12/11/2022 (Approximate), Expires: 12/11/2023 [facility] Work Phone: Comment on above: Expected: 12/11/2022 (Approximate), Expi res: 12/11/2023 Start: 09-04-2022 Hemoglobin A1c measurement Diabetes: Hemoglobin A1C [facility] Start: 06-25-2022 End: 08-25-2022 CBC W Auto Differential panel - Blood CBC + DIFF Lab Routine Abnormal CT scan, stomach Expected: 06/25/2022, Expires: 08/25/2022 [facility] Work Phone: Comment on above: Expected: 06/25/2022, Expires: 2 Start: 06-25-2022 End: 08-25-2022 Comprehensive metabolic 2000 panel - Serum or Plasma COMP METABOLIC PANEL Lab Routine Abnormal CT scan, stomach Expected: 06/25/2022, Expires: 08/25/2022 [facility] Work Phone: Comment on above: Expected: 06/25/2022, Expires: 2 Start: 06-25-2022 End: 08-25-2022 HEPATITIS A ANTIBODY, IGG HEPATITIS A ANTIBODY, IGG Lab Routine History of hepatitis C Expected: 06/25/2022, Expires: 08/25/2022 [facility] Work Phone: Comment on above: Expected: 06/25/2022, Expires: 2 Start: 06-25-2022 End: 08-25-2022 Hepatitis B virus core Ab [Presence] in Serum HEP B CORE AB TOTAL Lab Routine History of hepatitis C Expected: 06/25/2022, Expires: 08/25/2022 [facility] Work Phone: Comment on above: Expected: 06/25/2022, Expires: 2 Start: 06-25-2022 End: 08-25-2022 Hepatitis B virus surface Ab [Presence] in Serum by Immunoassay HEP B SURF AG SCRN Lab Routine History of hepatitis C Expected: 06/25/2022, Expires: 08/25/2022 [facility] Work Phone: Comment on above: Expected: 06/25/2022, Expires: 2 Start: 06-25-2022 End: 08-25-2022 Hepatitis B virus surface Ab [Units/volume] in Serum HEP B SURF AB QUANT Lab Routine History of hepatitis C Expected: 06/25/2022, Expires: 08/25/2022 [facility] Work Phone: Comment on above: Expected: 06/25/2022, Expires: 2 Start: 06-25-2022 End: 08-25-2022 Hepatitis C virus RNA [Units/volume] (viral load) in Serum or Plasma by SHANE with probe detection HCV QUANT RNA BY PCR Lab Routine History of hepatitis C Expected: 06/25/2022, Expires: 08/25/2022 [facility] Work Phone: Comment on above: Expected: 06/25/2022, Expires: 2 Start: 06-25-2022 End: 08-25-2022 Lipase [Enzymatic activity/volume] in Serum or Plasma LIPASE BLD Lab Routine Abnormal CT scan, stomach Expected: 06/25/2022, Expires: 08/25/2022 [facility] Work Phone: Comment on above: Expected: 06/25/2022, Expires: 2 Start: 06-25-2022 End: 08-25-2022 PT panel - Platelet poor plasma by Coagulation assay PROTHROMBIN TIME/PT Lab Routine History of hepatitis C Abnormal results of liver function studies Expected: 06/25/2022, Expires: 08/25/2022 [facility] Work Phone: Comment on above: Expected: 06/25/2022, Expires: 2 Start: 06-19-2022 Influenza vaccination [facility] Start: 07-16-2020 Creatinine measurement Creatinine monitoring [place], [place] Start: 07-16-2020 Creatinine monitoring Creatinine monitoring [place], [place] Start: 06-19-2020 Influenza vaccination Flu vaccine (#1) [place], [place] Start: 2020 HEPATITIS B (1 of 3 - Risk 3-dose series) HEPATITIS B (1 of 3 - Risk 3-dose series) [facility] Start: 2020 Hepatitis B Vaccines (1 of 3 - Risk 3-dose series) Hepatitis B Vaccines (1 of 3 - Risk 3-dose series) [facility] Start: 2020 RSV Immunization aged 60 or older (1 - 1-dose 60+ series) RSV Immunization aged 60 or older (1 - 1-dose 60+ series) [facility] Start: 2020 RSV Immunization for Adults (1 - Risk 60-74 years 1-dose series) RSV Immunization for Adults (1 - Risk 60-74 years 1-dose series) [facility] Start: 07-19-2019 Hospital Encounter 07/19/2019 Hospital Encounter Radiology Daniel London MD [address] [address] [facility] Start: 06-19-2019 Influenza vaccination Flu vaccine (#1) [place], [place] Start: 04-10-2019 Annual Wellness Visit (AWV) Annual Wellness Visit (AWV) [place], [place] Start: 08-28-2018 Pneumococcal 0-64 years Vaccine (2 - PPSV23 or PCV20) Pneumococcal 0-64 years Vaccine (2 - PPSV23 or PCV20) [facility] Start: 08-28-2018 Pneumococcal Vaccine: Pediatrics (0 to 5 Years) and At-Risk Patients (6 to 64 Years) (2 - PPSV23 if available, else PCV20) Pneumococcal Vaccine: Pediatrics (0 to 5 Years) and At-Risk Patients (6 to 64 Years) (2 - PPSV23 if available, else PCV20) [facility] Start: 10-23-2017 Pneumococcal Vaccine: 50+ Years (2 of 2 - PPSV23) Pneumococcal Vaccine: 50+ Years (2 of 2 - PPSV23) [facility] Start: 10-23-2017 Pneumococcal Vaccine: Pediatrics (0 to 5 Years) and At-Risk Patients (6 to 64 Years) (2 - PPSV23 if available, else PCV20) Pneumococcal Vaccine: Pediatrics (0 to 5 Years) and At-Risk Patients (6 to 64 Years) (2 - PPSV23 if available, else PCV20) [facility] Start: 10-23-2017 Pneumococcal Vaccine: Pediatrics (0 to 5 Years) and At-Risk Patients (6 to 64 Years) (2 of 2 - PPSV23 or PCV20) Pneumococcal Vaccine: Pediatrics (0 to 5 Years) and At-Risk Patients (6 to 64 Years) (2 of 2 - PPSV23 or PCV20) [facility] Start: 09-06-2016 A1C test (Diabetic or Prediabetic) A1C test (Diabetic or Prediabetic) [place] Start: 09-06-2016 Creatinine monitoring Creatinine monitoring [place], [place] Start: 09-06-2016 HbA1c (Bld) [Mass fraction] A1C test (Diabetic or Prediabetic) [place] Start: 09-06-2016 Hemoglobin A1c measurement A1C test (Diabetic or Prediabetic) [facility] Start: 09-06-2016 Lipid panel [facility] Start: 09-06-2016 Lipid screen Lipid screen [place], [place] Start: 09-06-2016 Potassium monitoring Potassium monitoring [place] Start: 02-03-2015 PROSTATE CANCER SCREENING DISCUSSION PROSTATE CANCER SCREENING DISCUSSION [facility] Start: 02-03-2010 Colon cancer screen colonoscopy Colon cancer screen colonoscopy [place], [place] Start: 02-03-2010 Screening for malignant neoplasm of colon Colon cancer screen colonoscopy [place], [place] Start: 02-03-2010 Shingles Vaccine (1 of 2) Shingles Vaccine (1 of 2) [facility] Start: 02-03-2010 SHINGRIX VACCINE (1 of 2) SHINGRIX VACCINE (1 of 2) [facility] Start: 02-03-2010 Zoster Vaccines (1 of 2) Zoster Vaccines (1 of 2) [facility] Start: 02-03-2005 COLOGUARD (FIT-DNA) COLOGUARD (FIT-DNA) [facility] Start: 02-03-2005 Colonoscopy COLONOSCOPY [facility] Start: 02-03-2005 COLORECTAL CANCER SCREENING COLORECTAL CANCER SCREENING [facility] Start: 02-03-[address] COLONOGRAPHY [facility] Start: 02-03-2005 FECAL OCCULT BLOOD FECAL OCCULT BLOOD [facility] Start: 02-03-2005 Screening for malignant neoplasm of colon [facility] Start: 02-03-2005 SIGMOIDOSCOPY SIGMOIDOSCOPY [facility] Start: 2000 Prostate specific antigen measurement Prostate Specific Antigen (PSA) Screening or Monitoring [facility] Start: 02-03-1979 DTaP/Tdap/Td vaccine (1 - Tdap) DTaP/Tdap/Td vaccine (1 - Tdap) [facility] Start: 02-03-1979 Hepatitis A Vaccines (1 of 2 - Risk 2-dose series) Hepatitis A Vaccines (1 of 2 - Risk 2-dose series) [facility] Start: 02-03-1979 Hepatitis B Vaccine (1 of 3 - Risk 3-dose series) Hepatitis B Vaccine (1 of 3 - Risk 3-dose series) [place] Start: 02-03-1979 Urine microalbumin profile DTAP,TDAP,TD (1 - Tdap) [facility] Start: 02-03-1979 Urine screening for protein Diabetes: Urine Protein Screening [facility] Start: 02-03-1978 ANNUAL PCP TEAM CHRONIC DISEASE VISIT ANNUAL PCP TEAM CHRONIC DISEASE VISIT [facility] Start: 02-03-1978 BP CONTROLLED (<130/80) BP CONTROLLED (<130/80) [facility] Start: 02-03-1978 Diabetes: Urine Albumin-Creatinine Ratio for Kidney Health Diabetes: Urine Albumin-Creatinine Ratio for Kidney Health [facility] Start: 02-03-1978 Diabetic microalbuminuria test Diabetic microalbuminuria test [place], [place] Start: 02-03-1978 Diabetic retinal exam Diabetic retinal exam [facility] Start: 02-03-1978 Hepatitis B surface antibody level LDL CHOLESTEROL [facility] Start: 02-03-1978 Hepatitis C screening Hepatitis C screen [facility] Start: 02-03-1978 HIV SCREENING HIV SCREENING [facility] Start: 02-03-1978 SPIROMETRY SPIROMETRY [facility] Start: 02-03-1978 Urine screening for protein Diabetic microalbuminuria test [facility] Start: 02-03-1975 HIV screen HIV screen [place], [place] Start: 02-03-1975 HIV screening HIV screen [facility] Start: 1972 Adult depression screening assessment DEPRESSION SCREENING [facility] Start: 1972 Depression Screen Depression Screen [facility] Start: 1972 Depresssion Monitoring Depresssion Monitoring [facility] Start: 02-03-1970 [object Object] Diabetic foot exam [facility] Start: 02-03-1970 Diabetic foot examination [facility] Start: 02-03-1970 Diabetic retinal exam Diabetic retinal exam [place] Start: 02-03-1970 Glaucoma screening Diabetes: Retinopathy Screening [facility] Start: 02-03-1970 Hepatitis B screening URINE ALBUMIN:CREATININE RATIO [facility] Start: 02-03-1970 Hepatitis C antibody, confirmatory test DILATED RETINAL EXAM [facility] Start: 02-03-1970 Preventive dental service Diabetes: Dental Exam [facility] Start: 02-03-1966 PNEUMOCOCCAL (1 - PCV) PNEUMOCOCCAL (1 - PCV) [facility] Start: 02-03-1966 Pneumococcal 0-64 years Vaccine (1 - PCV) Pneumococcal 0-64 years Vaccine (1 - PCV) [facility] Start: 02-03-1966 Pneumococcal 0-64 years Vaccine (1 of 1 - PPSV23) Pneumococcal 0-64 years Vaccine (1 of 1 - PPSV23) [place], [place] Start: 02-03-1965 Hemoglobin A1c/Hemoglobin.total in Blood HBA1C [facility] Start: 02-03-1961 HEPATITIS A (1 of 2 - Risk 2-dose series) HEPATITIS A (1 of 2 - Risk 2-dose series) [facility] Start: 02-03-1961 Hepatitis A vaccine (1 of 2 - Risk 2-dose series) Hepatitis A vaccine (1 of 2 - Risk 2-dose series) [facility] Start: 02-03-1961 Hepatitis A Vaccines (1 of 2 - Risk 2-dose series) Hepatitis A Vaccines (1 of 2 - Risk 2-dose series) [facility] Start: 02-03-1961 MMR Vaccines (1 of 1 - Standard series) MMR Vaccines (1 of 1 - Standard series) [facility] Start: 1960 COVID-19 Vaccine (#1) COVID-19 Vaccine (#1) [facility] Start: 1960 Annual wellness visit Medicare Initial Physical (IPPE) [facility] Start: 1960 Annual Wellness Visit (AWV) Annual Wellness Visit (AWV) [facility] Start: 1960 Hepatitis C screen Hepatitis C screen [place], [place] Start: 1960 Hepatitis C screening Hepatitis C screen [place] Start: 1960 HIV screening HIV Screening [facility] Start: 1960 Lipid panel Lipid Panel [facility] Start: 1960 Medicare Advantage Annual Wellness Visit (AWV) Medicare Advantage Annual Wellness Visit (AWV) [facility] Start: 1960 Medicare Annual Wellness (AWV) Medicare Annual Wellness (AWV) [facility] Start: 1960 Screening for malignant neoplasm of colon [facility] End: 06-25-2020 Add On Lab Test Add On Lab Test Lab Routine One Time for 1 Occurrences starting 06/25/2020 until 06/25/2020 [place] Comment on above: One Time for 1 Occurrences starting 04/2020 until 06/25/2020 End: 03-08-2024 Blood gases, venous measurement Blood gas, venous (ACH and SBH) Lab STAT Once (Lab) for 1 Occurrences starting 03/08/2024 until 03/08/2024 [facility] Work Phone: Comment on above: Once (Lab) for 1 Occurrences starting until 03/08/2024 End: 06-04-2022 C. difficile toxin Molecular C. difficile toxin Molecular Microbiology Add-On 48 HRS for 47 Hours starting 06/04/2022 until 06/04/2022 [facility] Comment on above: 48 HRS for 47 Hours starting 05/19 until 06/04/2022 End: 06-24-2020 C. Trachomatis / N. Gonorrhoeae, DNA Probe C. Trachomatis / N. Gonorrhoeae, DNA Probe Microbiology Routine One Time for 1 Occurrences starting 06/24/2020 until 06/24/[facility]: One Time for 1 Occurrences starting 03/2020 until 06/24/2020 C. Trachomatis / N. Gonorrhoeae, DNA Probe C. Trachomatis / N. Gonorrhoeae, DNA Probe Microbiology STAT 06/24/2020 11[facility]30 PM [facility] End: 07-05-2024 Calprotectin (BKR QUEST) [facility] Work Phone: Comment on above: Once (Lab) for 1 Occurrences starting until 07/05/2024 Clostridioides diffi cile toxin genes [Presence] in Stool by SHANE with probe detection C. DIFFICILE PCR Lab Routine Diarrhea, unspecified type Ordered: 06/25/2022 [facility] Work Phone: Comment on above: Ordered: 06/25/2022 End: 06-25-2023 EGD DIAGNOSTIC EGD DIAGNOSTIC Endoscopy Routine Abnormal CT scan, stomach History of esophageal varices 1 Occurrences starting 06/25/2022 until 06/25/2023 [facility] Work Phone: Comment on above: 1 Occurrences starting 06/25/2022 until 06/25/2023 ENTERIC BACTERIAL PA LEVON BY PCR ENTERIC BACTERIAL PANEL BY PCR Lab Routine Diarrhea, unspecified type Ordered: 06/25/2022 [facility] Work Phone: Comment on above: Ordered: 06/25/2022 Folate [Moles/volume ] in Serum or Plasma [facility] Giardia lamblia+Cryptosporidium sp Ag [Presence] in Stool by Immunoassay CRYPTOSPORIDIUM AND GIARDIA ANTIGENS BY EIA Microbiology Routine Diarrhea, unspecified type Ordered: 06/25/2022 [facility] Work Phone: Comment on above: Ordered: 06/25/2022 Glucose [Mass/volume ] in Serum or Plasma POCT GLUCOSE Point of Care Testing Routine 4X Daily (AC & HS) until discontinued starting 06/04/2022 [facility] Work Phone: Comment on above: 4X Daily (AC & HS) until discontinued st arting 06/04/2022 Glucose [Mass/volume ] in Serum or Plasma [facility] Work Phone: Comment on above: 4X Daily (AC & HS) until discontinued st arting 06/04/2022 As Needed until disc ontinued starting 06/04/2022 End: 04-05-2023 Hepatitis C virus RNA panel (viral load) in Serum or Plasma by SHANE with probe detection Hepatitis C viral load Lab Routine Morning draw (Lab) for 1 Occurrences starting 04/05/2023 until 04/05/2023 [facility] Work Phone: Comment on above: Morning draw (Lab) for 1 Occurrences sta rting 04/05/2023 until 04/05/2023 Hepatitis C virus RN A panel (viral load) in Serum or Plasma by SHANE with probe detection Hepatitis C viral load Lab Routine 04/05/2023 6:15 AM EDT [facility] OR parasites identification [facility] Oxygen therapy [[facility] Data Set] Initiate Oxygen Therapy Protocol Respiratory Care Routine As Needed until discontinued starting 06/04/2022 [facility] Work Phone: Comment on above: As Needed until discontinued starting End: 06-05-2022 Reticulocytes Reticulocytes Lab Add-On One Time for 1 Occurrences starting 06/05/2022 until 06/05/2022 [facility] Work Phone: Comment on above: One Time for 1 Occurrences starting 05/19 until 06/05/2022 End: 06-05-2022 Surgical Pathology Surgical Pathology Lab Routine Once for 1 Occurrences starting 06/05/2022 until 06/05/2022 [facility] Work Phone: Comment on above: Once for 1 Occurrences starting 06/05/20 until 06/05/2022 Surgical Pathology Surgical Path ology Lab Routine 06/05/2022 12:00 AM EDT [facility] Work Phone: Tissue exam [facility] Work Phone: Comment on above: Release Upon Ordering for 1 Occurrences starting 01/05/2023 End: 07-25-2023 Us abdominal real time w/image limited US ABD RT UPPER QUADRANT Radiology Routine History of hepatitis C 1 Occurrences starting 06/25/2022 until 07/25/2023 [facility] Work Phone: Comment on above: 1 Occurrences starting 06/25/2022 until 07/25/2023 Immunizations Immunization Date Immunization Notes Care Provider Venu barrios 08-03-2024 Influenza, injectabl e, Madin Roseanna Canine Kidney, preservative free, quadrivalent Dr. Jani Quezada MD Work Phone: [facility] 07-01-2023 influenza vac subuni t quadrivalent (Flucelvax) injection 0.5 mL Steve Whitley MD Work Phone: [facility] 07-17-2020 influenza, injectabl e, quadrivalent, contains preservative Beryl Friedt PA-C Work Phone: [facility] 07-17-2020 influenza, injectabl e, quadrivalent, preservative free Dr. Jani Quezada MD Work Phone: [facility] 07-17-2020 influenza virus vaccine, unspecified formulation Beryl Friedt PA-C Work Phone: [facility] 08-16-2019 influenza, injectabl e, quadrivalent, contains preservative Beryl Friedt PA-C Work Phone: [facility] 08-16-2019 influenza, injectabl e, quadrivalent, preservative free Dr. Jani Quezada MD Work Phone: [facility] 08-26-2018 influenza, injectabl e, quadrivalent, contains preservative Beryl Friedt PA-C Work Phone: [facility] 08-26-2018 influenza, injectabl e, quadrivalent, preservative free Dr. Jani Quezada MD Work Phone: [facility] 08-26-2018 tetanus toxoid, reduced diphtheria toxoid, and acellular pertussis vaccine, adsorbed Beryl Friedt PA-C Work Phone: [facility] 08-28-2017 influenza, injectabl e, quadrivalent, contains preservative Beryl Friedt PA-C Work Phone: [facility] 08-28-2017 influenza, injectabl e, quadrivalent, preservative free Dr. Jani Quezada MD Work Phone: [facility] 08-28-2017 pneumococcal conjuga te vaccine, 13 valent Beryl Friedt PA-C Work Phone: [facility] 07-18-2016 influenza, injectabl e, quadrivalent, preservative free Dr. Jani Quezada MD Work Phone: [facility] 07-18-2016 influenza, seasonal, injectable Munira Staley PA-C Work Phone: [facility] 07-11-2016 influenza, injectabl e, quadrivalent, contains preservative Beryl Friedt PA-C Work Phone: [facility] 07-11-2016 influenza, injectabl e, quadrivalent, preservative free Dr. Jani Quezada MD Work Phone: [facility] 08-17-2015 influenza, injectabl e, quadrivalent, contains preservative Beryl Friedt PA-C Work Phone: [facility] 08-17-2015 influenza, injectabl e, quadrivalent, preservative free Dr. Jani Quezada MD Work Phone: [facility] NEGATED: Highlighted row has not occurred!07-06-2024 influenza, injectable, madin roseanna canine kidney, preservative free Verónica Pierce PA-C Work Phone: [facility] Comment on above: Deferred: Other - Pt states "not right now" NEGATED: Highlighted row has not occurred!12-23-2022 influenza, injectable, quadrivalent, preservative free Beryl Friedt PA-C Work Phone: [facility] Comment on above: Deferred: Patient Re fused Payers Date Payer Category Payer Self-pay 2023 Medicare HMO ANTHEM DUAL ADVA NTAGE [id number] 2023 Medicare [id number] 2018 Medicaid MEDICAID [facility] DEPT OF JOB xxxxxxxxxxxx 2018-Present [phone] [address] [place] [address] xxxxxxxxxxxx [id number] 2017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 THERAPY [facility] Name/MRN: Woody Ni ([id number]) Date: 07/07/2024 Per nursing staff, patient has been agitated, restless, and tearful this date. Upon arrival to room, 1:1 sitter reports that patient has only just finally calmed down and fell asleep. Will attempt later as able. Concepcion Aguirre PTA [facility] Department of Psychiatry Nurse Practitioner Note *Please contact Supervisor Claims Psychiatry Listed in [facility] On-Call Finder Thu-Thu: From 1700 - 0800 [...] 64 y.o., male who was hospitalized at [facility] for Metabolic acidosis, increased anion gap on 07/04/2024. PMH of depression, HTN, DM admitted for metabolic acidosis. Psychiatry consulted for depression. Interval History: pt seen in follow up for depression with suicidal ideation. The patient was seen and examined. The chart was reviewed. Pt seen sleeping soundly with constant building rental manager at bedside. 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 Nausea and vomiting 12/22/22-12/26/22 admitted at [facility] Pain management Sleep apnea noncompliant with [...] Gatherings with Friends and Family: Never Attends Nondenominational Services: Never Active Member of Clubs or [...] min Stress: No Stress Concern Present (04/03/2023) [place] [employer] - Occupational Stress Questionnaire Feeling of Stress : Not at all Social Connections: Socially Isolated (12/07/2023) Social Connection and Isolation Panel [NHANES] Frequency of Communication with Friends and Family: Never Frequency of Social Gatherings with Friends and Family: Never Attends Nondenominational Services: Never Active Member of Clubs or [...] Utilities: Not At Risk (07/05/2024) [facility] Utilities Threatened with loss of utilities: No [...] 9 - 30 umol/L Lipase Collection Time: 09/16/24 5:35 PM Result Value Ref Range LIPASE [...] 450 ms QTC Interval 570 ms P [place] 58 degrees QRS [place] -58 degrees T Wave [place] 10 degrees [place] Interval 142 ms Lactic acid with reflex [...] Pt is currently medically admitted. 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 ADDICTION MEDICINE PROGRESS NOTE Patient: Woody Ni Problem List: Principal Problem: Metabolic acidosis, increased anion gap SUBJECTIVE Chief Complaint Patient presents with Dizziness Vomiting Alcohol Problem Last 4 CIWA scores per RN assessments - Interim History Patient was found lying [...] 07/05/2024 [facility] NI [facility] 1960 [id number] Exam Date/Time: 07/05/2024 13:10 Procedure: CT ABDOMEN [...] complete Result Date: 07/05/2024 Patient Name: WOODY NI: 1960 Exam Date/Time: 07/05/2024 08:35 Procedure: US [...] Gallbladder/biliary: Status post cholecystectomy. As per the magnetic resonance technologist, no sonographic Ortiz sign was present. [...] 07/04/2024 [facility]: [facility]ODY NI : 1960 [id number] Exam Date/Time: 07/04/2024 17:52 Procedure: XR CHEST [...] by Ashley Bell Labs CBC: Recent Labs 07/05/24 0246 07/06/24 10407/07/24 0330 WBC 6.7 4.5 5.3 HGB 10.9* 11.1* 9.5* PLT 187 192 176 MCV 86.3 90.2 88.7 RDW 12.8 13.3 13.6 BMP: Recent Labs 07/04/24173407/05/246 07/06/24 1041 07/07/24 0330 NA 124* 127* 135 134* K [...] 134 INR 1.1 -- Glucose: Recent Labs 07/04/24173407/05/2424507/06/24 10407/07/24 0330 GLUCOSE 86 125* 184* 131* Lactic [...] syndrome Cirrhosis (HCC) Dehydration 12/22/22-12/26/22 admitted to [facility] Depression Diabetes mellitus (HCC) Gout Hepatitis C Hypertension Hyponatremia Hypothyroidism prison prescription opiate use Nausea and vomiting 12/22/22-12/26/22 admitted at [facility] Pain management Sleep apnea noncompliant with [...] Full Code Anticipated Discharge - Date - 9/21? - Location - Inpatient Psych - Pending [...] DO Division of Hospitalist Medicine [facility] Department of Psychiatry Nurse Practitioner Note *Please contact Supervisor Claims Psychiatry Listed in [email or web address] On-Call Finder Thu-Thu: From 1700 - 0800 and on Thursday & Thursday* TODAY'S DATE: 07/06/24 ADMISSION DATE: 07/04/2024 Hospital Day: 2 IDENTIFYING INFORMATION Name: Woody Ni : 1960 [...] 64 y.o., male who was hospitalized at [facility] for Metabolic acidosis, increased anion gap [...] Virgilio Almanza MD, 3 mL at 07/06/24 0905 loperamide (Imodium) capsule 2 mg, 2 mg, [...] Daily, Emiliano Church, , 50 mg at 07/06/24 0824 sodium chloride [...] syndrome Cirrhosis (HCC) Dehydration 12/22/22-12/26/22 admitted to [facility] Depression Diabetes mellitus (HCC) Gout Hepatitis C Hypertension Hyponatremia Hypothyroidism prison prescription opiate use Nausea and vomiting 12/22/22-12/26/22 admitted at [facility] Pain management Sleep apnea noncompliant with [...] Gatherings with Friends and Family: Never Attends Nondenominational Services: Never Active Member of Clubs or [...] min Stress: No Stress Concern Present (04/03/2023) [place] [employer] - Occupational Stress Questionnaire Feeling of Stress : Not at all Social Connections: Socially Isolated (12/07/2023) Social Connection and Isolation Panel [NHANES] Frequency of Communication with Friends and Family: Never Frequency of Social Gatherings with Friends and Family: Never Attends Nondenominational Services: Never Active Member of Clubs or [...] Utilities: Not At Risk (07/05/2024) [facility] Utilities Threatened with loss of utilities: No [...] 0.20 - 2.81 mg/dL Blood gas, venous (Geff and Green) Collection Time: 07/04/24 5:35 PM [...] 450 ms QTC Interval 570 ms P [place] 58 degrees QRS [place] -58 degrees T Wave [place] 10 degrees [place] Interval 142 ms Lactic acid with reflex [...] lamblia Not Detected Not Detected Adenovirus F 40/ Not Detected Not Detected Astrovirus Not Detected [...] Pt is currently medically admitted. 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 [facility] Respiratory Care Department Progress Note As part [...] 07/05/2024 Patient Name: WOODY NI : 1960 [facility]#: [id number] Exam Date/Time: 07/05/2024 13:10 Procedure: CT ABDOMEN [...] Gallbladder/biliary: Status post cholecystectomy. As per the magnetic resonance technologist, no sonographic Ortiz sign was present. [...] RDW 12.8 12.8 13.3 BMP: Recent Labs 07/04/24173407/05/2424507/06/24 1041 NA 124* 127* 135 K 2.7* 3.1* 3.4* CL 90* 100 108* CO2 14* 18* 16* BUN 18 17 13 CREATININE 1.33* 1.13 0.93 CALCIUM 8.8 8.6 8.9 MG 1.5* -- 1.4* Liver Profile: Recent Labs 07/04/24173407/05/24245 AST 38 -- ALT 17 -- BILITOT 0.8 -- ALKPHOS 68 -- PROT 6.6 -- LIPASE 133 134 INR 1.1 -- Glucose: Recent Labs 07/04/24173407/05/246 07/06/24 1041 GLUCOSE 86 125* 184* Lactic Acid: No lab exists for component: "LACTA" Cardiac Injury Profile: Recent Labs 07/04/24 173 TROPONINI 0.026 Last 24 Hours: Recent Results [...] reviewed with the patient. CBC: Recent Labs 07/04/24 [...] Gallbladder/biliary: Status post cholecystectomy. As per the magnetic resonance technologist, no sonographic Ortiz sign was present. [...] is for OP colonoscopy, follow up with [facility] I saw and evaluated the patient, [...] with colonoscopy which will be arranged through [facility] GI office. Images from the original note were not included. OCCUPATIONAL THERAPY [facility] Initial Evaluation Name/MRN: Woody Ni ([id number]) Evaluation Date: 07/05/2024 Date of : 1960 Admission Date: 07/04/2024 5:16 PM Age: 64 y.o. [facility] Discharge Recommendation: Continue to assess pending progress, Home with assist PRN, Senior Living Facility Assessment IMPRESSION: 64 y/o male admitted [...] he wouldn't hurt himself. Pt now has building rental manager in room. Pain: Pt denies any current pain. 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 Nausea and vomiting 12/22/22-12/26/22 admitted at [facility] Pain management Sleep apnea noncompliant with [...] 100 (High Risk) Precautions/Restrictions: Lines/Drains/Airways: PIV, tele City Council Member Family/Caregiver Present: none Overall Cognitive Status: WFL [...] Responsibilities: Independent Receives Help From: Family Active Inventory Accountant: N/A Prior Level of Function ADL Assistance: [...] precautions in place, left in bed, and building rental manager present Restraints: No Education Education Given To: [...] Care supervision is transferred to a [facility] Therapy Services Occupational Therapist. Goals and/or treatment plan was established in collaboration with patient/family/other representatives. Hospitalist Progress Note(Non-billable encounter) 07/05/2024 3:38 PM [phone]: Please page me for patient care issues. [phone]: Please page [facility] night Hospitalist for any issues. Subjective: Admit [...] DO Division of Hospitalist Medicine [facility]patient Medical Services/[facility] Images from the original note were not included. PHYSICAL THERAPY [facility] Initial Evaluation Name/MRN: Woody Ni ([id number]) Evaluation Date: 07/05/2024 Date of : 1960 Admission Date: 07/04/2024 5:16 PM Age: 64 y.o. Room/Bed: W3-336/W3-336 B Discharge Recommendation: Senior Living Facility Equipment Needed: (TBD) Assessment IMPRESSION: PT [...] syndrome Cirrhosis (HCC) Dehydration 12/22/22-12/26/22 admitted to [facility] Depression Diabetes mellitus (HCC) Gout Hepatitis C Hypertension Hyponatremia Hypothyroidism prison prescription opiate use Nausea and vomiting 12/22/22-12/26/22 admitted at [facility] Pain management Sleep apnea noncompliant with [...] Responsibilities: Independent Receives Help From: Family Active Inventory Accountant: N/A Prior Level of Function ADL Assistance: [...] Raw Score (No Stairs) : 15 [facility] Score: Walked 25 ft or more [...] Care supervision is transferred to a [facility] Therapy Services Physical Therapist. Goals and/or treatment plan was established in collaboration with patient/family/other representatives. Woody Ni was ordered risedronate 5 mg tablet. Oral bisphosphonates have been shown to increase the risk of serious GI events if the strict administration instructions are not followed. Because it is often difficult to follow these strict measures in hospitalized patients, the [facility] Pharmacy and Therapeutics Committee has determined the risk of administration to hospitalized patients outweighs the potential benefit. Therefore, all orders for oral bisphosphonate are automatically discontinued per [facility] policy #4005. The medication remains on the Home Medication List for resumption at discharge unless specifically discontinued by the prescriber. Tierra Long PharmD documented in this encounter [facility] 07-10-2024 Plan of care note Problem: Pain - Adult Goal: Verbalizes/displays adequate comfort level or baseline comfort level Outcome: Progressing Problem: Safety - Adult Goal: Free from fall injury Outcome: Progressing Problem: Chronic Conditions and Co-morbidities Goal: Patient's chronic conditions and co-morbidity symptoms are monitored and maintained or improved Outcome: Progressing [facility] 07-09-2024 Nurse Note This RN was [...] RN remains at the bedside until a building rental manager can be present for pt safety. Attending Dr. Church came to the bedside to speak with the pt at this time. Pt reassured and comforted. [facility] 07-09-2024 Nurse Note This RN was notified [...] RN remains at the bedside until a building rental manager can be present for pt safety. Attending Dr. Church came to the bedside to speak with the pt at this time. Pt reassured and comforted. This nurse entered room, patient was bleeding from his Right arm he had pulled off a piece of skin stating "I'm a last picker". 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 Notified Physician. documented in this encounter [facility] 07-09-2024 Plan of care note The [...] My discharge needs are met Outcome: Progressing [facility] 07-08-2024 Plan of care note Problem: [...] plan, medications, and discharge instructions Outcome: Progressing [facility] 07-08-2024 Note Formatting of this n ote might be different from the original. Patient Choice Patient Name: WOODY NI Date of : 1960 All Providers Sent Referral Name: Dakota LIZ Member Phone: [phone] Address: [address] [place] [address] Name: [facility] Phone: [phone] Address: [address] [place] [address] Name: [facility] Phone: [phone] Address: [address] [place], [place] [id number] T [facility] 07-08-2024 Note Formatting of this n ote might be different from the original. Patient Choice Patient Name: WOODY NI Date of : 1960 All Providers Sent Referral Name: Dakota Rhodes - MARYAMN Member Phone: [phone] Address: [address] [place] [address] Name: [facility] Phone: [phone] Address: [address] [place] [address] Name: [facility] Phone: [phone] Address: [address] [place], [place] [id number] [facility] 07-08-2024 Note Formatting of this n ote might be different from the original. Referral placed to SNFs [facility] Dakota Rhodes via Careport per TCC request. Await review and response regarding ability to accept. TCC notified. [facility] 07-08-2024 Note Formatting of this n ote might be different from the original. [facility] via Careport per TCC request. Await review and response regarding ability to accept. TCC notified. [facility] 07-08-2024 Note Formatting of this n ote might be different from the original. Met with patient- sitter discontinued SI discontinued . Ready for discharge NOT going to [facility] , feels better- wants to go to SNF. Referrals sent to [address] [place] [address] Tcc tasked weekend to follow need therapy and auth isaias , 7000. Not able to discharge ti ll Thursday [facility] 07-08-2024 Note Formatting of this n ote might be different from the original. Met with patient- sitter discontinued SI discontinued . Ready for discharge NOT going to [facility] , feels better- wants to go to SNF. Referrals sent to [address] [place] [address] Tcc tasked weekend to follow need therapy and auth isaias , 7000. Not able to discharge ti ll Thursday [facility] 07-08-2024 Hospital Discharge instructions Kingsley White, SALON STYLIST - INTERPRETER - 07/08/2024 11:35 AM EDT [facility] Address: [address] [place] [address] [address], [place] [address] Walk-in Clinic: 12:00 pm [facility] [address] , [address] [place] [address] [facility] documented in this encounter [facility] 07-08-2024 Plan of care note The [...] My discharge needs are met Outcome: Progressing [facility] 07-08-2024 Plan of care note Problem: Pain - Adult Goal: Verbalizes/displays adequate comfort level or baseline comfort level 07/08/2024 0145 by Jazmin Evans RN Outcome: Progressing 07/07/20242130 by Jazmin Evans RN Outcome: Progressing Flowsheets (Taken 07/07/20242117) Verbalizes/displays adequate comfort level or baseline comfort level: Encourage patient to monitor pain and request assistance Assess pain using appropriate pain scale Problem: Safety - Adult Goal: Free from fall injury 07/08/2024 014 by Jazmin Evans RN Outcome: [...] Evans RN Outcome: Progressing 07/07/20242130 by Jazmin Almo, RN Outcome: Progressing Goal: Verbalizes adaptive coping mechanisms 07/08/2024144 by Jazmin Evans RN Outcome: Progressing 07/07/20242130 by Jazmin Evans RN Outcome: Progressing Goal: Verbalizes personal strengths 07/08/2024144 by Jazmin Evans RN Outcome: Progressing 07/07/20242130 by Jazmin Evans RN Outcome: Progressing Problem: Potential for Suicide Goal: Remain free from self harm 07/08/2024 014 by Jazmin Evans RN Outcome: Progressing 07/07/20242130 by Jazmin Evans RN Outcome: Progressing Problem: Discharge Barriers Goal: My discharge needs are met 07/08/2024144 by Jazmin Evans RN Outcome: Progressing 07/07/20242130 by Jazmin Evans RN Outcome: Progressing [facility] 07-07-2024 Nurse Note This nurse entered room, patient was bleeding from his Right arm he had pulled off a piece of skin stating "I'm a last picker". 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 Notified Physician. [facility] 07-07-2024 Plan of care note The patient [...] is Maintained or Improved Outcome: Not Progressing [facility] 07-07-2024 Telephone encounter Note Pt is currently admitted. Will contact pt when he get discharge. Thank you [facility] 07-07-2024 Miscellaneous Notes Pt is currently admitted. Will contact pt when he get discharge. Thank you GI Staff to scheduled hospital follow up and colonoscopy once discharged. Patient evaluated inpatient for diarrhea and abdominal pain. Needs OP colonoscopy. OV and please use inpatient colon spot for colonoscopy. Ok for LEENA. documented in this encounter [facility] 07-07-2024 Miscellaneous Notes Pt is currently admitted. Will contact pt when he get discharge. Thank you GI Staff to scheduled hospital follow up and colonoscopy once discharged. Patient evaluated inpatient for diarrhea and abdominal pain. Needs OP colonoscopy. OV and please use inpatient colon spot for colonoscopy. Ok for LEENA. documented in this encounter [facility] 07-07-2024 Note Formatting of this n ote might be different from the original. Care Managment Initial Assessment Date: 07/07/2024 Patient Name: Woody Ni : 1960 Patient Information Source of Information: Patient Cognition/Language: WFL - Within Functional Limits Permission given to speak with patient help desk representative/caregiver as indicated: Yes Confirmation of Payer with patient/family: Yes Payer Name: [place]ia medicare : No Confirmation of Primary Care [...] Living Prescription Coverage: Yes Pharmacy Used: [place] - [address] [address] [address] [facility] Medication Management: Independent Transportation/Shopping: [...] medical stability for transfer Anna Yoder RN [facility] 07-07-2024 Note Formatting of this n ote might be different from the original. Care Managment Initial Assessment Date: 07/07/2024 Patient Name: Woody Ni : 1960 Patient Information Source of Information: Patient Cognition/Language: WFL - Within Functional Limits Permission given to speak with patient help desk representative/caregiver as indicated: Yes Confirmation of Payer with patient/family: Yes Payer Name: [employer] medicare : No Confirmation of Primary Care [...] Daily Living Prescription Coverage: Yes Pharmacy Used: [address] [facility] Medication Management: Independent Transportation/Shopping: Independent Transportation Mode: Car Needs Assistance with Transportation at Discharge: Yes Meal Preparation: Independent Laundry/Cleaning: Independent Finances/Bill Paying: Independent Communication: Independent Types of Care Services/Equipment Utilized Care Services: Dialysis Type: Durable Medical Equipment: Cane, Walker, Wheelchair (standard or power), Bedside Commode, Scooter, Nebulizer, Raised Toilet Seat Patient's Goal/Discharge Plan Patient [facility] be [facility] Discharge Planning Actions: Continue to follow Patient's Choice Rights and [employer] and Collaborative Relationships Disclosed as Indicated for Post-Acute Care: Interdisciplinary Team Engagement: Social Work Referral for: Transportation Assistance, Community Resources, Direction Home Waiver Additional Information: Re admitted , from home. Has pcp , script coverage, . Sig SDOH, sw met with him, he is agreeable to go to [facility] . Vs snf active with services. SW following . Waiting on medical stability for transfer Anna Yoder RN [facility] 07-07-2024 Telephone encounter Note GI Staff to scheduled hospital follow up and colonoscopy once discharged. [facility] 07-07-2024 Plan of care note Problem: [...] by Jazmin Evans RN Outcome: Progressing 07/07/2024 000 by Jazmin Evans RN Outcome: Progressing Problem: Discharge Planning Goal: Discharge to home or other facility with appropriate resources 07/07/2024352 by Jazmin Evans RN Outcome: Progressing 07/07/2024 0345 by Jazmin Evans RN Outcome: Progressing 07/07/2024 012 by Jazmin Evans RN Outcome: Progressing 07/07/2024 000 by Jazmin Evans RN Outcome: Progressing Problem: Chronic Conditions and Co-morbidities Goal: Patient's chronic conditions and co-morbidity symptoms are monitored and maintained or improved 07/07/2024352 by Jazmin Evans, MEGGAN Outcome: Progressing 07/07/2024 0345 by Jazmin Evans, MEGGAN Outcome: Progressing 07/07/2024 012 by Jazmin Evans RN Outcome: Progressing 07/07/2024 000 by Jazmin Store Merchandiser, RN Outcome: Progressing Problem: Knowledge Deficit Goal: Patient/family/caregiver demonstrates understanding of disease process, treatment plan, medications, and discharge instructions 07/07/2024 035 by Jazmin Evans, RN Outcome: [...] Evans, RN Outcome: Progressing 07/07/20248 by Jazmin Evans, RN Outcome: Progressing Problem: Potential for Suicide Goal: Remain free from self harm 07/07/2024352 by Jazmin Evans, RN Outcome: Progressing 07/07/2024344 by Jazmin Evans, RN Outcome: Progressing 07/07/2024123 by Jazmin Evans, RN Outcome: Progressing 07/07/20248 by Jazmin Evans, RN Outcome: Progressing Problem: Discharge Barriers Goal: My discharge needs are met 07/07/2024352 by Jazmin Evans, RN Outcome: Progressing 07/07/2024344 by Jazmin Evans, RN Outcome: Progressing 07/07/2024123 by Jazmin Evans, RN Outcome: Progressing 07/07/20248 by Jazmin Evans RN Outcome: Progressing [facility] 07-07-2024 Plan of care note Problem: Pain - Adult Goal: Verbalizes/displays adequate comfort level or baseline comfort level 07/07/2024123 by Jazmin Evans, MEGGAN Outcome: Progressing 07/07/20248 by Jazmin Evans, MEGGAN Outcome: Progressing Problem: Safety - Adult Goal: Free from fall injury 07/07/2024123 by Jazmin Evans RN Outcome: Progressing 07/07/20248 by Jazmin Evans RN Outcome: Progressing Problem: Discharge Planning Goal: Discharge to home or other facility with appropriate resources 07/07/2024123 by Jazmin Evans, MEGGAN Outcome: Progressing 07/07/20248 by Jazmin Evans RN Outcome: Progressing Problem: Chronic Conditions and Co-morbidities Goal: Patient's chronic conditions and co-morbidity symptoms are monitored and maintained or improved 07/07/2024123 by Jazmin Evans, MEGGAN Outcome: Progressing 07/07/20248 by Jazmin Evans RN Outcome: Progressing Problem: Knowledge Deficit Goal: Patient/family/caregiver demonstrates understanding of disease process, treatment plan, medications, and discharge instructions 07/07/2024123 by Jazmin Evans, MEGGAN Outcome: Progressing 07/07/20248 by Jazmin Evans RN Outcome: Progressing Problem: Potential for Compromised Skin Integrity Goal: Skin Integrity is Maintained or Improved 07/07/2024123 by Jazmin Evans, RN Outcome: Progressing 07/07/20248 by Jazmin Evans, RN Outcome: Progressing Goal: Nutritional status is improving 07/07/2024123 by Jazmin Evans, RN Outcome: Progressing 07/07/20248 by Jazmin Evans RN Outcome: Progressing Problem: Urinary Incontinence Goal: Perineal skin integrity is maintained or improved 07/07/2024123 by Jazmin Evans, RN Outcome: Progressing 07/07/20248 by Jazmin Evans RN Outcome: Progressing Problem: Inadequate Coping Goal: Demonstrates ability to cope effectively 07/07/2024123 by Jazmin Evans RN Outcome: Progressing 07/07/20248 by Jazmin Evans RN Outcome: Progressing Goal: Verbalizes adaptive coping mechanisms 07/07/2024123 by Jazmin Evans RN Outcome: Progressing 07/07/20248 by Jazmin Evans RN Outcome: Progressing Goal: Verbalizes personal strengths 07/07/2024123 by Jazmin Evans, MEGGAN Outcome: Progressing 07/07/20248 by Jazmin Evans RN Outcome: Progressing Problem: Potential for Suicide Goal: Remain free from self harm 07/07/2024123 by Jazmin Evans RN Outcome: Progressing 07/07/20248 by Jazmin Evans RN Outcome: Progressing Problem: Discharge Barriers Goal: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 [facility] [address] Schedule an appointment as soon as possible for a visit in 1 week [facility] ED [address] [place] [address] [place] [address] If symptoms worsen DISCHARGE MEDICATIONS: New [...] Medicine Provider Júnior Lo MD 04/04/24 1800 [facility] 03-09-2024 Emergency department Note Called pt home number and notified family that pt left his glasses and I will be leaving them with protective services Anna Ramey RN 03/09/24 1545 [facility] 03-09-2024 Emergency department Note Called pt [...] SO left the pt. To go to [place]. ACC RN reviewed residential treatment opportunities; [facility] in [place], [place] the pt. Must be detox/sober. [facility] in [place], [place] & [facility] who have male residential treatment facilities in [place], [place] & [place], [place] & the will coordinate transportation for the pt. & intoxicated. Both those residential companies will provide inpt. Detox & than move the pt. Into residential treatment. Pt. Has the contact information. Marjan An RN 03/09/24 1414 Received call back from that pt home [...] his home is secure. This RN called [facility] non-emergent line and requested officers secure the pt home. Pt aware and states he still wishes to leave AMA. Dr. Perez made aware. Anna Ramey RN 03/09/24 1221 Pt. 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 Seizure pads applied to hospital bed. Marjan An RN 03/08/24 0176 ACC RN spoke to pt. Regarding his Audit C score + 12; pt. Drinks daily > 18 beers daily over thew last 2 weeks. Pt. Drank today, 18 beers. Pt's. CIWA -14. Pt. Reports he recent inpt. Detox @ [facility] admit 01/15/24 thru 01/26/24 - 11 days. Pt. requesting inpt. Detox. ACC RN discussed residential treatment following detox to allow pt. time in a structured environment as the pt. completes IOP. ACC RN provided pt. With educational info regarding Strategies for Sobriety, Long & short-term effects of alcohol use, [place] [facility] info, [facility] Tx. Services, other community tx. Resources, Peer Wallpaper Printer service info.. Pt. Signed MALINI for SO () & 2 sisters. Pt. Reports Mood disorder - anxiety, grieving loss of father & separation from SO. Pt. signed detox unit guidelines. Pt. has Medicare with [employer]. Marjan An RN 03/08/242329 Below are additional resources that you may find beneficial in your treatment: 12-Step: Alcohol Anonymous: [email or web address].org Armani Anon: [phone]: 12-step program for families & friends of people with addiction. CRISIS: Homeless Hotline: 355.613.4750 [facility] HOMELESS SHELTERS [facility] ([facility]eterans) 11/05 line-11/05 OFFICE: [phone] [facility]: [address] [place] [address] [phone] (24 Hours) Domestic Violence help line anytime: [phone] Crisis Hotline: 11/05- 946.778.2273 [facility] Addiction Helpline: 672.202.5283 (available 8:30 AM to 4:00 PM ) 2-1-1 2-1-1 helps people across [facility] find local resources when they don't know where to turn for help. We are available 24 hours a day, 7 days a week. For help, simply dial --1 to speak to one of our trained professionals. DETOX TREATMENT: [facility] [place] [phone] /[facility] Crisis Center: anytime @ [phone] for alcohol & drug addiction help. [facility] coordination: [phone] (Medicare not accepted) [facility], [place], [place] [phone] [facility] [place]: [phone] [facility] [place], [place]: [phone], [facility] [place]: [phone] [facility] [phone] Adolescent [place], [place] [phone] [facility] [place]: [phone] [facility], [place], [place] [phone] ext. [phone] [place], [place] (pt. must be medically cleared prior to admission in ED) Jerad Jackie Contreras [place] [phone] OUTPATIENT TREATMENT: [facility] Addiction Health @ [place], [place] [phone]. Intensive Outpatient Programs- [place], [place] [phone] [place], [place] [phone] [place], [place] [phone] [facility] Addiction Treatment: [place], [place] [phone] or [phone]. [facility]: [phone] [facility], [place]: [phone], [place]: [phone] [place], [place]: [phone] [facility], [place]: [phone], [place]: [phone] [facility]. [place]: [phone] [place], [place] [phone] [facility], [place], [place] [phone] Behavioral Health Services: [facility] Health Services: Prlcn-[phone], [facility]-[phone], [place]- [phone] [facility], [place]: [phone], [place]: [phone] [facility] [place] [phone] [facility], [place], [place] [phone] RESIDENTIAL TREATMENT FACILITIES: [facility]: inpt. Or outpt. - [phone] [facility]/[place], [place] [phone] [place], [place] [phone] Community Assessment & Treatment Services (CATS) @ [facility] [phone] [facility] Residential tx., [place], [place] [phone] (admission coordinated by ADM -Adamaris Mcgovern ext [phone]) [facility] [place], [place]: [phone]; Men's services inpt. & women services - Outpt. [facility], [place], [place] [phone] [facility], [place], [place] [phone] [facility]'s [place], [place] [phone] [facility], [place], [place] [phone] [facility], [place], [place] [phone] [facility] [place] [phone] [facility], [place], [place] [phone] [place] [phone] OTHER SERVICES: [employer] - [employer]: [phone] [facility]: [phone] ext. [phone] Medicaid Health Coverage: [employer] JFS: [phone] Marjan An RN 03/08/247 EMERGENCY DEPARTMENT ENCOUNTER Pt Name: Woody Ni [...] syndrome Cirrhosis (HCC) Dehydration 12/22/22-12/26/22 admitted to [facility] Depression Diabetes mellitus (HCC) Gout Hepatitis C Hypertension Hyponatremia Hypothyroidism prison prescription opiate use Nausea and vomiting 12/22/22-12/26/22 admitted at [facility] Pain management Sleep apnea noncompliant with [...] min Stress: No Stress Concern Present (04/03/2023) [place] [employer] - Occupational Stress Questionnaire Feeling of Stress : Not at all Social Connections: Socially Isolated (12/07/2023) Social Connection and Isolation Panel [NHANES] Frequency of Communication with Friends and Family: Never Frequency of Social Gatherings with Friends and Family: Never Attends Nondenominational Services: Never Active Member of Clubs or [...] Year: No PHYSICAL EXAM ED Triage Vitals [03/08/242] Temp Heart Rate Resp BP 36.6 C [...] 91.2 FIO2 Narrative: Performed by: Hanna Hernandez [facility], [address] [place] [address] CLIA ID: [id number] SARS-COV-2 ANTIGEN - Normal SARS-CoV-2 Antigen Negative [...] and DIFFERENTIAL DIAGNOSIS/MDM: Vitals: Vitals: 03/08/24 2232 03/08/244 03/08/242316 BP: 133/87 133/87 Pulse: 109 109 Resp: [...] injection 4 mg ( IntraVENous See Alternative 03/08/24 2348) sodium chloride 0.9 % bolus 1,000 mL (1,000 mL IntraVENous New Bag 03/08/24 2342) dextrose 5 % and sodium chloride 0.9 % infusion (100 mL/hr IntraVENous New Bag 03/08/24 2343) SCREENINGS 11:12 PM - The patient presented with chief complaint of alcohol intoxication, seeking detox. See history and physical exam above. Differential diagnose includes but is not limited to alcohol intoxication, alcohol withdrawal syndrome, other drug intoxication. Ativan ordered per [facility] protocol. To aid in management, I performed [...] DO 03/09/24 0038 documented in this encounter [facility] 03-09-2024 Hospital course Narrative Discharge Summary [...] Complexity: follow up within 7-14 calendar days (93416) [] Severe Complexity: follow up within 7 calendar days (05217) FOLLOW UP TESTING, PENDING RESULTS OR REFERRALS [...] 03/09/2024, 4:07 PM documented in this encounter [facility] 03-09-2024 Note [facility] 03-09-2024 Emergency department Note ACC RN spoke to pt. Regarding treatment. RN encouraged pt. To continue the plan to receive inpt. Detox tx.. Pt. Voiced concern for his belongings as he was not home when his SO left the pt. To go to [place]. ACC RN reviewed residential treatment opportunities; [facility] in [place], [place] the pt. Must be detox/sober. [facility] in [place], [place] & [place] who have male residential treatment facilities in [place], [place] & [place], [place] & [facility] coordinate transportation for the pt. & intoxicated. Both those residential companies will provide inpt. Detox & than move the pt. Into residential treatment. Pt. Has the contact information. Marjan An RN 03/09/24 2137 [facility] 03-09-2024 Emergency department Note Received call back from PD that pt home is secured. Pt still wanting to leave. Per Dr. Stevens pt is OK to leave AMA. Pt ride called. Anna Ramey RN 03/09/24 1251 [facility] 03-09-2024 Note Formatting of this n ote might be different from the original. Patient wants to leave the hospital seen at bedside and requested him to stay, he declined, he has mental capacity to make decisions. # He will sign out AGAINST MEDICAL ADVICE # He will return to the emergency department if symptoms severe -advised not to drive [facility] 03-09-2024 Note Formatting of this n ote might be different from the original. Patient wants to leave the hospital seen at bedside and requested him to stay, he declined, he has mental capacity to make decisions. # He will sign out AGAINST MEDICAL ADVICE # He will return to the emergency department if symptoms severe -advised not to drive [facility] 03-09-2024 Miscellaneous Notes Patient wants to leave the hospital seen at bedside and requested him to stay, he declined, he has mental capacity to make decisions. # He will sign out AGAINST MEDICAL ADVICE # He will return to the emergency department if symptoms severe -advised not to drive documented in this encounter [facility] 03-09-2024 Emergency department Note Pt states he is concerned about his home being open and would like to leave AMA. Pt has attempted contacting family and no one is able to go make sure his home is secure. This RN called [place] [employer] non-emergent line and requested officers secure the pt home. Pt aware and states he still wishes to leave AMA. Dr. Perez made aware. Anna Ramey RN 03/09/24 1225 [facility] 03-09-2024 Note NOTE:These results a re for medical treatment only. Analysis performed using non-forensic procedures. This test has not been cleared by the US Food and Drug Administration (FDA). The FDA has determined that such clearance or approval is not necessary. The performance chararcteristics have been determined by the clinical laboratories of [facility]. [facility] 03-09-2024 Note NOTE:These results a re for medical treatment only. Analysis performed using non-forensic procedures. This test has not been cleared by the US Food and Drug Administration (FDA). The FDA has determined that such clearance or approval is not necessary. The performance chararcteristics have been determined by the clinical laboratories of [facility]. 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 Nausea and vomiting 12/22/22-12/26/22 admitted at [facility] Pain management Sleep apnea noncompliant with [...] min Stress: No Stress Concern Present (04/03/2023) [place] [employer] - Occupational Stress Questionnaire Feeling of Stress : Not at all Social Connections: Socially Isolated (12/07/2023) Social Connection and Isolation Panel [NHANES] Frequency of Communication with Friends and Family: Never Frequency of Social Gatherings with Friends and Family: Never Attends Nondenominational Services: Never Active Member of Clubs or [...] RDW 11.9 PLT 204 BMP: Recent Labs 03/08/240 NA 130* K 4.4 CL 96* CO2 [...] syndrome Cirrhosis (HCC) Dehydration 12/22/22-12/26/22 admitted to [facility] Depression Diabetes mellitus (HCC) Gout Hepatitis C Hypertension Hyponatremia 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 Patient s cognitive capacity: Code Status: [_] [FULL CODE - Continue all advanced life support: CPR,intubation,invasive procedures] [_] [DNR-CCA - DO NOT do CPR, intubation] [_] [DNR-DIAMOND POLISHER - Comfort care only] [_] DNR form [...] with patient and/or family/surrogate. LAURA STEVENS MD, Division of Hospitalist Medicine [facility] 03-09-2024 Note [facility] 03-09-2024 History and physical note Images from [...] syndrome Cirrhosis (HCC) Dehydration 12/22/22-12/26/22 admitted to [facility] Depression Diabetes mellitus (HCC) Gout Hepatitis C Hypertension Hyponatremia Hypothyroidism prison prescription opiate use Nausea and vomiting 12/22/22-12/26/22 admitted at [facility] Pain management Sleep apnea noncompliant with [...] min Stress: No Stress Concern Present (04/03/2023) [place] [employer] - Occupational Stress Questionnaire Feeling of Stress : Not at all Social Connections: Socially Isolated (12/07/2023) Social Connection and Isolation Panel [NHANES] Frequency of Communication with Friends and Family: Never Frequency of Social Gatherings with Friends and Family: Never Attends Nondenominational Services: Never Active Member of Clubs or [...] RDW 11.9 PLT 204 BMP: Recent Labs 03/08/24 2300 NA 130* K 4.4 CL 96* CO2 [...] syndrome Cirrhosis (HCC) Dehydration 12/22/22-12/26/22 admitted to [facility] Depression Diabetes mellitus (HCC) Gout Hepatitis C Hypertension Hyponatremia Hypothyroidism prison prescription opiate use Nausea and vomiting 12/22/22-12/26/22 admitted at [facility] Pain management Sleep apnea noncompliant with [...] - DO NOT do CPR, intubation] [_] [DNR-DIAMOND POLISHER - Comfort care only] [_] DNR form [...] family/surrogate. LAURA STEVENS MD, MD [facility] documented in this encounter [facility] 03-08-2024 Emergency department Note Pt. 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 Seizure pads applied to hospital bed. Marjan An RN 03/08/24 7411 [facility] 03-08-2024 Emergency department Note ACC RN spoke to pt. Regarding his Audit C score + 12; pt. Drinks daily > 18 beers daily over thew last 2 weeks. Pt. Drank today, 18 beers. Pt's. CIWA -14. Pt. Reports he recent inpt. Detox @ [facility] admit 01/15/24 thru 01/26/24 - 11 days. Pt. requesting inpt. Detox. ACC RN discussed residential treatment following detox to allow pt. time in a structured environment as the pt. completes IOP. ACC RN provided pt. With educational info regarding Strategies for Sobriety, Long & short-term effects of alcohol use, [place] Community Resource info, [facility] Tx. Services, other community tx. Resources, [employer] Printer service info.. Pt. Signed MALINI for SO () & 2 sisters. Pt. Reports Mood disorder - anxiety, grieving loss of father & separation from SO. Pt. signed detox unit guidelines. Pt. has Medicare with [employer]. Marjan An RN 03/08/24 4059 [facility] 03-08-2024 Note NOTE: This result is for medical treatment only. Analysis performed using non-forensic procedures. [facility] 03-08-2024 Emergency department Note Below are additional resources that you may find beneficial in your treatment: 12-Step: Alcohol Anonymous: [email or web address] Arm[employer] Anon: [phone]: 12-step program for families & friends of people with addiction. CRISIS: Homeless Hotline: 457.185.9200 [facility] ([facility]) 11/05 line-11/05 OFFICE: [phone] [facility]: [address] [place] [address] [phone] (24 Hours) Domestic Violence help line anytime: 629.679.2999 Crisis Hotline: 11/05- 546.928.9761 [facility] Addiction Helpline: 146.422.9524 (available 8:30 AM to 4:00 PM ) 2-1-1 2-1-1 helps people across [facility] find local resources when they don't know where to turn for help. We are available 24 hours a day, 7 days a week. For help, simply dial 11-19-1 to speak to one of our trained professionals. DETOX TREATMENT: [facility] [place], [place] [phone] /[facility] Crisis Center: anytime @ [phone] for alcohol & drug addiction help. [facility] coordination: [phone] (Medicare not accepted) [facility], [place], [place] [phone] [facility] [place]: [phone] [place]: [phone], [facility] [place]: [phone] [place] [phone] Adolescent detox [place], [place] [phone] [facility] [place] - [place]: [phone] [facility], [place] [phone] ext. [phone] [place], [place] (pt. must be medically cleared prior to admission in ED) [facility], [place], [place] [phone] OUTPATIENT TREATMENT: [facility] Addiction Health @ [place], [place] [phone]. [facility]ensive Out[facility] Programs- [facility] [place] [place] [phone] [place], [place] [phone] [facility] Karl [place] [phone] [facility] Addiction Treatment: [place], [place] [phone] or [phone]. [facility]: [phone] [facility], [place]: [phone], [place]: [phone] [facility] [place]: [phone] [facility], [place]: [phone], [place]: [phone] [facility]. [place]: [phone] [facility], [place], [place] [phone] [facility], [place], [place] [phone] Behavioral Health Services: [facility] Health Services: [phone], [facility]-[phone], [place]- [phone] [facility], [place]: [phone], [place]: [phone] [place] [phone] [facility] [phone] RESIDENTIAL TREATMENT FACILITIES: [facility]: inpt. Or outpt. - [phone] [facility], [place], [place] [phone] [place] [phone] Community Assessment & Treatment Services (CATS) @ [facility] [phone] [facility] tx., [place] [phone] (admission coordinated by ADM Tana Mcgovern ext [phone]) [facility] [place], [place]: [phone]; Men's services inpt. & women services - Outpt. [place], [place] [phone] [facility], [place], [place] [phone] [facility]'s [facility], [place], [place] [phone] [facility], [place], [place] [phone] [facility], [place] [phone] [facility] - [place], [place] [phone] [facility], [place], [place] [phone] [place] [phone] OTHER SERVICES: [employer] - [employer]: [phone] [facility]: [phone] ext. [phone] Medicaid Health Coverage: [employer] JFS: [phone] Marjan An RN 03/08/246 [facility] 03-08-2024 Physician Emergency department Note EMERGENCY DEPARTMENT [...] syndrome Cirrhosis (HCC) Dehydration 12/22/22-12/26/22 admitted to [facility] Depression Diabetes mellitus (HCC) Gout Hepatitis C Hypertension Hyponatremia Hypothyroidism prison prescription opiate use Nausea and vomiting 12/22/22-12/26/22 admitted at [facility] Pain management Sleep apnea noncompliant with [...] min Stress: No Stress Concern Present (04/03/2023) [place] [employer] - Occupational Stress Questionnaire Feeling of Stress : Not at all Social Connections: Socially Isolated (12/07/2023) Social Connection and Isolation Panel [NHANES] Frequency of Communication with Friends and Family: Never Frequency of Social Gatherings with Friends and Family: Never Attends Nondenominational Services: Never Active Member of Clubs or [...] Venous 91.2 FIO2 Narrative: Performed by: [facility], [address] [place] [address] CLIA ID: [id number] SARS-COV-2 ANTIGEN - Normal SARS-CoV-2 Antigen Negative [...] DEPARTMENT COURSE and DIFFERENTIAL DIAGNOSIS/MDM: Vitals: Vitals: 03/08/242 03/08/24223303/08/242316 BP: 133/87 133/87 Pulse: 109 109 Resp: [...] 1,000 mL (1,000 mL IntraVENous New Bag 03/08/242341) dextrose 5 % and sodium chloride 0.9 % infusion (100 mL/hr IntraVENous New Bag 03/08/24 2343) SCREENINGS 11:12 PM - The patient presented with chief complaint of alcohol intoxication, seeking detox. See history and physical exam above. Differential diagnose includes but is not limited to alcohol intoxication, alcohol withdrawal syndrome, other drug intoxication. Ativan ordered per [facility] protocol. To aid in management, I performed [...] (HCC) 3. Alcohol withdrawal syndrome without complication ([facility]) 4. High anion gap metabolic acidosis DISPOSITION [...] Medicine Provider Nir Driscoll DO 03/09/24 0038 [facility] 02-26-2024 Telephone encounter Note S: Pt calling CAC nurse for medication refill B: Medication: Dicyclomine [...] policy Protocols used: Medication Refill and Renewal Nulc-ZVHAT-VA [facility] 02-26-2024 Miscellaneous Notes S: Pt calling [facility] nurse for medication refill B: Medication: [...] policy Protocols used: Medication Refill and Renewal [id number] documented in this encounter [facility] 01-26-2024 Note Formatting of this n ote might be different from the original. [facility] was notified by [facility] that auth has been approved. TCC messaged attending to place DC orders and complete ISAIAS, and bedside RN to notify of DC. TCC spoke to in rounds to set up transport. TCC updated pt at bedside, pt agreeable to plan. TCC updated SNF via careport. Discharge order placed TCC and attending sections of ISAIAS completed. No covid test needed. set up transport for 3:00 pm. to tell RN, secetary, pt, and facility. [facility] tasked SLAB POLISHER to transmit discharge orders to SNF and complete 7000. [facility] placed in follow up provider section. Discharge date updated and milestones completed. Pt will be transported to [facility] via ambulance transport today at 3:00 pm. T [facility] 01-26-2024 Note Formatting of this n ote might be different from the original. TCC was notified by [facility] that auth has been approved. TCC messaged [...] RN, secetary, pt, and facility. TCC tasked SLAB POLISHER to transmit discharge orders to SNF and complete 7000. [place] placed in follow up provider section. Discharge date updated and milestones completed. Pt will be transported to [facility] via ambulance transport today at 3:00 pm. [facility] 01-26-2024 Miscellaneous Notes TCC was notified by [facility] that auth has been approved. TCC messaged [...] RN, secetary, pt, and facility. TCC tasked SLAB POLISHER to transmit discharge orders to SNF and complete 7000. [place] placed in follow up provider section. Discharge date updated and milestones completed. Pt will be transported to [facility] via ambulance transport today at 3:00 pm. Asked by [facility] to set transport to [facility]. Wheel chair transportation arranged through Sergio Shane for 1300 chicken picker. 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 Patient Choice Patient Name: WOODY NI Date of : 1960 All Providers Sent Referral Name: [employer]. Address: [address] [place], [place] [id number] Name: [facility] - CPAN Member Phone: [phone] Address: [address] [place], [place] [id number] Discharge med list transmitted to [facility] per TCC request. 7000 was entered into [place] for the [facility]. Updated notes placed to [facility] via [employer] per TCC request. Await review and response regarding ability to accept. TCC notified. Pt remains on . Pt is medically ready for DC. TCC tasked PT and OT to see today. [facility] is willing to accept. No covid needed, pt is able to go now with SNF covid isolation policy. Updated PT and OT notes in. TCC tasked SLAB POLISHER to send updated MD,PT, and OT notes to [facility]. TCC messaged SNF via careport to start auth once updated notes are received. TCC updated pt at bedside. Pt agreeable to plan. Auth pending. TCC will follow for auth approval. [facility] per TCC request. Await review and response regarding ability to accept. TCC notified. coverage for today. Pt remains in COVID isolation. SW spoke with pt on phone to discuss SDOH. Pt reports that he and his partner have been struggling financially with utilities, bills, and food. Pt currently on Medicaid. Pt reports that he is unsure what the name of his Medicaid showcase maker is. Attempted to discuss [employer] and various agency assistance, however pt was fixated on talking about going to [facility] at discharge and requested SW put information on his discharge instructions. will provide follow up info for pt on his instructions per his request. Pt remains on . Covid positive 01/14. BLE venous duplex done 01/20. Addiction medicine signed off 01/19. OT recommending SNF as well. TCC called pt to get choices. FOC is [facility] and 2. Is [facility]. Pt asked TCC to call partner Kingsley to get more choices if those deny. TCC tried to call partner and no one answered, no VM box to leave. TCC tasked weekend therapy to see 01/23 for updated notes. TCC tasked [employer] to make the above referrals and ask [...] transport for now. TCC will follow. Received [facility] consult for housing, utilities and food insecurity, [...] Limits Permission given to speak with patient help desk representative/caregiver as indicated: Confirmation of Payer with patient/family: Yes Payer Name: 1. [facility] medicare advantage 2. medicaid : Yes ([employer]) Confirmation of Primary Care Physician: Confirmed PCP [...] Coverage: Yes Pharmacy [facility]: [facility] Medication Management: Independent Transportation/Shopping: Assistance Provider [...] improved Outcome: Progressing documented in this encounter [facility] 01-26-2024 Note Formatting of this n ote might be different from the original. Asked by [facility] to set transport to [facility]. Wheel chair transportation arranged through [employer] for 1300 chicken picker. 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 [facility] 01-26-2024 Note Formatting of this n ote might be different from the original. Asked by [facility] to set transport to [facility]. Wheel chair transportation arranged through [employer] for 1300 chicken picker. 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 [facility] 01-26-2024 Note Formatting of this n ote might be different from the original. Patient Choice Patient Name: WOODY NI Date of : 1960 All Providers Sent Referral Name: [employer]. Address: [address] [place] [address] Name: Dakota Rhodes - CPAN Member Phone: [phone] Address: [address] [place] [address] [facility] 01-26-2024 Note Formatting of this n ote might be different from the original. Patient Choice Patient Name: WOODY NI Date of : 1960 All Providers Sent Referral Name: [employer]. Address: [address] [place] [address] Name: Dakota Rhodes - CPAN Member Phone: [phone] Address: [address] [place] [address] [facility] 01-26-2024 Note Formatting of this n ote might be different from the original. Discharge med list transmitted to [facility] via [employer] per TCC request. 7000 was entered into [place] for the [facility]. [facility] 01-26-2024 Note Formatting of this n ote might be different from the original. Discharge med list transmitted to [facility] via [employer] per TCC request. 7000 was entered into [employer] for the [facility]. [facility] 01-26-2024 Note [facility] 01-26-2024 Hospital course Narrative Discharge Summary Woody [...] abdominal pain a/w N/V/Diarrhea and presented to [facility]. In ED he was feeling tremulous like going through WD. Feeling better after antiemetics and lorazepam. Found to have COVID infection and unable to go to detox unit and was admitted to for further eval and management He completed 3 days remdesivir for severe disease ppx Completed phenobarb taper 01/19 Benadryl helps his chronic pruritus He was DC to [facility] SIGNIFICANT DIAGNOSTIC STUDIES: none CONSULTANTS: Psychiatry RECOMMENDED [...] Medications These medications were sent to [facility] [place], [place] - [address] [facility] [address], [facility] [id number] Diclofenac Sodium 1 % gel magnesium chloride 64 MG EC tablet miconazole 2 % powder nicotine polacrilex 2 MG lozenge nystatin cream DIET: Adult diet Regular; 2000 ml ACTIVITY: No restriction. COMPLEXITY OF FOLLOW UP: [x] Moderate Complexity: follow up within 7-14 calendar days (32068) [] Severe Complexity: follow up within 7 calendar days (59658) FOLLOW UP TESTING, PENDING RESULTS OR REFERRALS AT TRANSITIONAL CARE VISIT: [] Yes [x] No PENDING STUDIES: none DISPOSITION: Skilled Facility FACILITY/HOME CARE AGENCY NAME: [facility]. Follow up with No follow-up provider specified. [...] 01/26/2024, 8:11 AM documented in this encounter [facility] 01-26-2024 History of Present illness Narrative Images from the original note were not included. Hospitalist Progress Note 01/26/2024 Subjective: Admit Date: 01/15/2024 PCP: Jani Quezada Room#: E5-215/E5-139 A Chief Complaint Patient presents with Vomiting Withdrawal Alcohol BRIEF HOSPITAL COURSE: Pt with h/o alcoholism, anxiety/depression, HTN, hypothyroidism, SHAYLA, gout, HepC, liver cirrhosis, chronic pain , DM2, hyponatremia, ETOH induced pancreatitis Pt drinks 18 beer daily, last drink on 01/13 at 6 pm . Woke up in the morning with abdominal pain a/w N/V/Diarrhea and presented to [facility] ED. In ED he was feeling tremulous [...] Intake/Output Summary (Last 24 hours) at 01/26/2024 0799 Last data filed at 01/26/2024 0626 Gross per 24 hour Intake 150 ml Output -- Net 150 ml Past Medical History: Past Medical History: Diagnosis Date Acid reflux Alcoholism (CMS/HCC) (HCC) Anxiety Back pain Chronic pain syndrome Cirrhosis (HCC) Dehydration 12/22/22-12/26/22 admitted to [facility] Depression Diabetes mellitus (HCC) Gout Hepatitis C Hypertension Hyponatremia Hypothyroidism prison prescription opiate use Nausea and vomiting 12/22/22-12/26/22 admitted at [facility] Pain management Sleep apnea noncompliant with [...] 11 10 LIVER PROFILE: Recent Labs 01/26/24 020 AST 22 ALT 18 BILITOT 0.6 ALKPHOS [...] - Date - tbd - Location -[facility] - Pending the following - precert (per notes accepted at SNF) Total time spent (which include face to face and non face to face encounters) : 35 minutes Toxic drug monitoring/narrow therapeutic index drug monitoring : # Drug name : # Route administered : # Method of monitoring : Extended Emergency Contact Information Primary Emergency Contact: Kingsley Carl Relation: Significant Other Jose Maria Abad MD Division of Hospitalist Medicine [facility] Pt asking RN this morning for ativan, zofran, zanaflex, vistaril, tylenol, and benedryl all at the same time. RN educated pt that these are PRN medications and not scheduled and can't all be given at the same time. Images from the original note were not included. PHYSICAL THERAPY [facility] Treatment Note Name/MRN: Woody Ni ([id number]) Date of : 1960 Age: 63 y.o. Room/Bed: E5-507/E5-507 A Discharge Recommendation: Senior Living Facility Equipment Needed: (TBD at next level [...] that he is excited about going to [facility] later today. Pain: c/o chronic back [...] "I just need help" "to go to [facility] today" Encounter Problems Encounter Problems (Active) Mobility [...] original note were not included. OCCUPATIONAL THERAPY [facility] Treatment Note Name/MRN: Woody Ni ([id number]) Date of : 1960 Age: 63 y.o. Room/Bed: E5507/[facility] A Discharge Recommendation: Senior Living Facility Other: TBD next level therapy Prior [...] original note were not included. PHYSICAL THERAPY [facility] Name/MRN: Woody Ni ([id number]) Date: 01/25/2024 Attempted PT. Pt states he can't do any therapy right now because he needs his meds first. Will re-attempt as schedule allows. Amarilys Leary PTA Images from the original note were not included. Hospitalist Progress Note 01/25/2024 Subjective: Admit Date: 01/15/2024 PCP: Jani Quezada Room#: E5-507/E5-507 A Chief Complaint Patient presents with Vomiting Withdrawal Alcohol BRIEF HOSPITAL COURSE: Pt with h/o alcoholism, anxiety/depression, HTN, hypothyroidism, SHAYLA, gout, HepC, liver cirrhosis, chronic pain , DM2, hyponatremia, ETOH induced pancreatitis Pt drinks 18 beer daily, last drink on 01/13 at 6 pm . Woke up in the morning with abdominal pain a/w N/V/Diarrhea and presented to [facility] ED. In ED he was feeling tremulous [...] syndrome Cirrhosis (HCC) Dehydration 12/22/22-12/26/22 admitted to [facility] Depression Diabetes mellitus (HCC) Gout Hepatitis C Hypertension Hyponatremia Hypothyroidism prison prescription opiate use Nausea and vomiting 12/22/22-12/26/22 admitted at [facility] Pain management Sleep apnea noncompliant with device LABS: CBC: Recent Labs 01/23/24 0841 01/24/24 0051 01/25/24 0114 WBC 7.1 6.1 6.0 RBC 3.90* 3.62* 3.71* HGB 12.4* 11.6* 11.7* HCT 36.0* 33.0* 34.0* MCV 92.3 91.2 91.6 RDW 14.2 13.9 13.7 PLT 139* 128* 141 BMP: Recent Labs 01/23/24 0841 01/24/24 0051 01/25/24 0114 NA 130* 132* 129* K 3.9 4.0 [...] alcohol dependence - phenobarb taper -> completed / - continue ativan prn . Needed x [...] MD Division of Hospitalist Medicine [facility] Images from the original note were not included. Hospitalist Progress Note 01/24/2024 Subjective: Admit Date: 01/15/2024 PCP: Jani Quezada Room#: E5-507/E5-50 A Chief Complaint Patient presents with Vomiting Withdrawal Alcohol BRIEF HOSPITAL COURSE: Pt with h/o alcoholism, anxiety/depression, HTN, hypothyroidism, SHAYLA, gout, HepC, liver cirrhosis, chronic pain , DM2, hyponatremia, ETOH induced pancreatitis Pt drinks 18 beer daily, last drink on 01/13 at 6 pm . Woke up in the morning with abdominal pain a/w N/V/Diarrhea and presented to [facility]. In ED he was feeling tremulous like going through WD. Feeling better after antiemetics and lorazepam. Found to have COVID infection and unable to go to detox unit and was admitted to for further eval and management He completed 3 days remdesivir for severe disease ppx Completed phenobarb taper / Benadryl helps his chronic pruritus Interval History: [...] syndrome Cirrhosis (HCC) Dehydration 12/22/22-12/26/22 admitted to [facility] Depression Diabetes mellitus (HCC) Gout Hepatitis C Hypertension Hyponatremia Hypothyroidism prison prescription opiate use Nausea and vomiting 12/22/22-12/26/22 admitted at [facility] Pain management Sleep apnea noncompliant with [...] Ethel Anna DO Division of Hospitalist Medicine [employer] Patient requesting Ativan stating so anxious and shaky Also requested tylenol and nausea med Images from the original note were not included. Hospitalist Progress Note 01/23/2024 Subjective: Admit Date: 01/15/2024 PCP: Jani Quezada Room#: E5-587/E5-400 A Chief Complaint Patient presents with Vomiting Withdrawal Alcohol BRIEF HOSPITAL COURSE: Pt with h/o alcoholism, anxiety/depression, HTN, hypothyroidism, SHAYLA, gout, HepC, liver cirrhosis, chronic pain , DM2, hyponatremia, ETOH induced pancreatitis Pt drinks 18 beer daily, last drink on 01/13 at 6 pm . Woke up in the morning with abdominal pain a/w N/V/Diarrhea and presented to [facility]. In ED he was feeling tremulous like going through WD. Feeling better after antiemetics and lorazepam. Found to have COVID infection and unable to go to detox unit and was admitted to for further eval and management He completed 3 days remdesivir for severe disease ppx Completed phenobarb taper 01/19 Benadryl helps his chronic pruritus Interval History: [...] syndrome Cirrhosis (HCC) Dehydration 12/22/22-12/26/22 admitted to [facility] Depression Diabetes mellitus (HCC) Gout Hepatitis C Hypertension Hyponatremia Hypothyroidism prison prescription opiate use Nausea and vomiting 12/22/22-12/26/22 admitted at [facility] Pain management Sleep apnea noncompliant with device LABS: CBC: Recent Labs 01/21/24 0323 01/22/24 0003 WBC 4.6 4.7 RBC 3.71* 3.26* HGB 11.8* 10.6* HCT 33.8* 30.1* MCV 91.1 92.3 RDW 13.9 14.0 PLT 82* 83* BMP: Recent Labs 01/21/24 0323 01/22/24 0003 NA 133* 132* K 3.7 3.4* CL 104 102 CO2 22 20* BUN 14 13 CREATININE 0.75 0.71 GLUCOSE 101* 111* CALCIUM 9.6 9.2 ANIONGAP 7 9 LIVER PROFILE: Recent Labs 01/21/24 0323 01/22/24 0003 AST 33 29 ALT 22 20 [...] DO Division of Hospitalist Medicine [facility] Nutrition Assessment Type and Reason for Visit: [...] Accumulation: No significant fluid accumulation (per flowsheet) Crime Prevention Worker Strength: Normal supervisor lime strength Nutrition Assessment: Pt with PMH including alcoholism, cirrhosis, HTN, DM, hepatitis C, hypothyroidism, gout, chronic back pain, SHAYLA, depression, falls, debility, presented to [facility] ED on 01/15/24 with N/V/D and [...] insecurity and financial struggles. He remains in droplet plus isolation. RD called into room for [...] On: Kcal/kg Weight Used for Energy Requirements: [place] Weight for Energy Calculation (kg): 75 kg Total Energy Requirements (kcals/day): 27 kcal/kg = 2024 kcal/day Weight Used for Protein Requirements: [place] Weight in Kg Used for Protein Requirements: [...] Current Nutrition Therapies: Adult diet Regular; GI Kelly (GERD/Peptic Ulcer) Current Oral Intake Average Meal Intake: 0% Average Supplements Intake: 76-100% (per pt report) Anthropometric Measures: Height: 177.8 cm (5' 10") Current Body Weight: (DANTE- no new weight) Admission Body Weight: 79.3 kg (174 lb 13.2 oz) ([facility] 01/14) Usual Body Weight: (171# on 02/11/23, 172# on 04/11/23, 160# on 10/22/23) [place] Body Weight (lbs) (Calculated): 166 lbs [place] Body Weight (Kg) (Calculated): 75 kg % [place] Body Weight (Calculated): 105.3 % BMI (kg/m2) [...] to determine Sloane Lyons RD, LD Contact: *[phone] or via [employer] chat Images from the original note were not included. OCCUPATIONAL THERAPY [facility] Treatment Note Name/MRN: Woody Ni ([id number]) Date of : 1960 Age: 63 y.o. Room/Bed: E5-507/E5-507 A Discharge Recommendation: Senior Living Facility Other: TBD next level therapy Prior [...] Admit Date: 01/15/2024 PCP: Jani Quezada Room#: E5-507/E5-507 A Chief Complaint Patient presents with Vomiting Withdrawal Alcohol BRIEF HOSPITAL COURSE: Pt with h/o alcoholism, anxiety/depression, HTN, hypothyroidism, SHAYLA, gout, HepC, liver cirrhosis, chronic pain , DM2, hyponatremia, ETOH induced pancreatitis Pt drinks 18 beer daily, last drink on 01/13 at 6 pm . Woke up in the morning with abdominal pain a/w N/V/Diarrhea and presented to [facility]. 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 OCCUPATIONAL THERAPY [facility] Initial Evaluation Name/MRN: Woody Ni ([id number]) Evaluation Date: 01/21/2024 Date of : 1960 Admission Date: 01/15/2024 10:30 AM Age: 63 y.o. Room/Bed: [facility] A Discharge Recommendation: Senior Living Facility Other: TBD next level therapy Assessment [...] syndrome Cirrhosis (HCC) Dehydration 12/22/22-12/26/22 admitted to [facility] Depression Diabetes mellitus (HCC) Gout Hepatitis C Hypertension Hyponatremia Hypothyroidism prison prescription opiate use Nausea and vomiting 12/22/22-12/26/22 admitted at [facility] Pain management Sleep apnea noncompliant with [...] Needs Assist Receives Help From: Spouse Active Inventory Accountant: No Prior Level of Function ADL Assistance: [...] Care supervision is transferred to a [facility] Therapy Services Occupational Therapist. Goals and/or treatment plan was established in collaboration with patient/family/other representatives. Images from the original note were not included. Hospitalist Progress Note 01/21/2024 Subjective: Admit Date: 01/15/2024 PCP: Jani Quezada Room#: E5-996/E5-907 A Chief Complaint Patient presents with Vomiting Withdrawal Alcohol BRIEF HOSPITAL COURSE: Pt with h/o alcoholism, anxiety/depression, HTN, hypothyroidism, SHAYLA, gout, HepC, liver cirrhosis, chronic pain , DM2, hyponatremia, ETOH induced pancreatitis Pt drinks 18 beer daily, last drink on 01/13 at 6 pm . Woke up in the morning with abdominal pain a/w N/V/Diarrhea and presented to [facility]. In ED he was feeling tremulous [...] itching. 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 Nausea and vomiting 12/22/22-12/26/22 admitted at [facility] Pain management Sleep apnea noncompliant with device LABS: CBC: Recent Labs 01/19/248 01/20/24 0537 01/21/24 0323 WBC 5.6 5.3 4.6 RBC 3.62* 3.66* 3.71* HGB 11.5* 11.7* 11.8* HCT 33.2* 33.2* 33.8* MCV 91.7 90.7 91.1 RDW 13.4 13.6 13.9 PLT 70* 79* 82* BMP: Recent Labs 01/19/248 01/20/24 0537 01/21/24 0323 NA 129* 129* 133* K [...] DO Division of Hospitalist Medicine [facility] Images from the original note were not [...] anticraving medications; 3) AA Meeting Schedule 4) [facility] Per notes, PT is recommending [...] Note 01/20/2024 Subjective: Admit Date: 01/15/2024 PCP: Jain Quezada Room#: E5-507/E5-507 A Chief Complaint Patient presents with Vomiting Withdrawal Alcohol BRIEF HOSPITAL COURSE: Pt with h/o alcoholism, anxiety/depression, HTN, hypothyroidism, SHAYLA, gout, HepC, liver cirrhosis, chronic pain , DM2, hyponatremia, ETOH induced pancreatitis Pt drinks 18 beer daily, last drink on 01/13 at 6 pm . Woke up in the morning with abdominal pain a/w N/V/Diarrhea and presented to [facility]. In ED he was feeling tremulous [...] All questions answered. Adult diet Regular; GI Kelly (GERD/Peptic Ulcer) 24HR INTAKE/OUTPUT: Intake/Output Summary (Last 24 hours) at 01/20/2024 1337 Last data filed at 01/20/2024 0722 Gross per 24 hour Intake 120 ml Output 1050 ml Net -930 ml Past Medical History: Past Medical History: Diagnosis Date Acid reflux Alcoholism (CMS/HCC) (HCC) Anxiety Back pain Chronic pain syndrome Cirrhosis (HCC) Dehydration 12/22/22-12/26/22 admitted to [facility] Depression Diabetes mellitus (HCC) Gout Hepatitis C Hypertension Hyponatremia Hypothyroidism prison prescription opiate use Nausea and vomiting 12/22/22-12/26/22 admitted at [facility] Pain management Sleep apnea noncompliant with device LABS: CBC: Recent Labs 01/18/2461901/19/24 0028 01/20/24 0537 WBC 5.3 5.6 5.3 RBC 3.81* 3.62* 3.66* HGB 12.1* 11.5* 11.7* HCT 34.3* 33.2* 33.2* MCV 90.0 91.7 90.7 RDW 13.5 13.4 13.6 PLT 62* 70* 79* BMP: Recent Labs 01/18/2461901/19/24 0028 01/20/24 0537 NA 132* 129* 129* K 3.6 3.7 3.7 CL 101 100 98 CO2 22 20* 21* BUN 14 14 8* CREATININE 0.70 0.72 0.74 GLUCOSE 123* 126* 100 CALCIUM 9.0 9.2 9.2 ANIONGAP 9 9 9 LIVER PROFILE: Recent Labs 01/18/2461901/19/24 0028 01/20/24 0537 AST 26 27 38 [...] 100 mL/hr, Last Rate: 100 mL/hr (01/19/24 8996) Assessment Data: (CAT1) Reviewed 2 or more [...] PO 10. Leg edema - check LE Stable chronic problems affecting care, new non-acute [...] Ethel Anna DO Division of Hospitalist Medicine [employer] [facility] Images from the original note were not included. PHYSICAL THERAPY [facility] Initial Evaluation Name/MRN: Woody Ni ([id number]) Evaluation Date: 01/20/2024 Date of : 1960 Admission Date: 01/15/2024 10:30 AM Age: 63 y.o. Room/Bed: E5-507/E5507 A Discharge Recommendation: Senior Living Facility Equipment Needed: (TBD) Assessment IMPRESSION: Patient [...] syndrome Cirrhosis (HCC) Dehydration 12/22/22-12/26/22 admitted to [facility] Depression Diabetes mellitus (HCC) Gout Hepatitis C Hypertension Hyponatremia Hypothyroidism prison prescription opiate use Nausea and vomiting 12/22/22-12/26/22 admitted at [facility] Pain management Sleep apnea noncompliant with [...] Needs Assist Receives Help From: Spouse Active Inventory Accountant: No Prior Level of Function ADL Assistance: [...] Raw Score (No Stairs) : 17 JH-HLM -HLM Score: Walked 25 ft or [...] Care supervision is transferred to a [facility] Therapy Services Physical Therapist. Goals [...] taper placed by primary team completed last gavin; He continues to receive PRN ativan Course of Remdisivir completed. VS reflect modest elevations in HR and BP readings. LABS show acute drop in Na (129) Following admission in October, noted transition to Senior Living Facility ([facility]) Patient phone call: fully oriented/coherent; irritable [...] as he was not "honorably" discharged from [email or web address]. Family/Friend discussion: Friend, Kingsley, talked with me; she reports that even if neighbor sincerely commits to not bringing beer, it would not last. PLAN Taper PRN ativan to 1mg q 8 hrs Extend Luminal taper to 16mg tid x 3; then stop Recommend PT/OT evaluation for recommendations on disposition: If snf facility is recommended due to debility: one that offers CHEMDEP treatment as part of their program may be his best option towards Recovery (ie: [facility] or [facility]) Will follow thru tomorrow and provide list [...] Accumulation: No significant fluid accumulation (per flowsheet) Crime Prevention Worker Strength: Normal supervisor lime strength Nutrition Assessment: Pt with PMH including alcoholism, cirrhosis, HTN, DM, hepatitis C, hypothyroidism, gout, chronic back pain, SHAYLA, depression, falls, debility, presented to [facility] ED on 01/15/24 with N/V/D and [...] On: Kcal/kg Weight Used for Energy Requirements: [place] Weight for Energy Calculation (kg): 75 kg Total Energy Requirements (kcals/day): 27 kcal/kg = 2024 kcal/day Weight Used for Protein Requirements: [place] Weight in Kg Used for Protein Requirements: [...] Current Nutrition Therapies: Adult diet Regular; GI Kelly (GERD/Peptic Ulcer) Current Oral Intake Average Meal Intake: 76-100% Average Supplements Intake: 51-75% Anthropometric Measures: Height: 177.8 cm (5' 10") Current Body Weight: 79.3 kg (174 lb 13.2 oz) (01/17) Admission Body Weight: 79.3 kg (174 lb 13.2 oz) ([facility] 01/14) Usual Body Weight: (171# on 02/11/23, 172# on 04/11/23, 160# on 10/22/23) [place] Body Weight (lbs) (Calculated): 166 lbs [place] Body Weight (Kg) (Calculated): 75 kg % [place] Body Weight (Calculated): 105.3 % BMI (kg/m2) [...] (185 lb) 01/05/23 83 kg (183 lb) 03/13/23 83.3 kg (183 lb 11.2 oz) Nutrition [...] to determine Sloane Lyons RD, LD Contact: *[phone] or via [employer] chat Wound Care consulted for Pressure Injury Prevention. Pt's Pranav score= 18 on 01/15, Pranav now=20 Skin Care precaution order set in place. Skilled Nursing Professional consult in place. PT consult N/A, subscores=3. Will continue to follow pt. Please Voicera for any questions or concerns. Gina Sarmiento RN, [facility] Images from the original note were not included. Hospitalist Progress Note 01/19/2024 Subjective: Admit Date: 01/15/2024 PCP: Jani Quezada Room#: [id number] A Chief Complaint Patient presents with Vomiting Withdrawal Alcohol BRIEF HOSPITAL COURSE: Pt with h/o alcoholism, anxiety/depression, HTN, hypothyroidism, SHAYLA, gout, HepC, liver cirrhosis, chronic pain , DM2, hyponatremia, ETOH induced pancreatitis Pt drinks 18 beer daily, last drink on 01/13 at 6 pm . Woke up in the morning with abdominal pain a/w N/V/Diarrhea and presented to [facility] ED. In ED he was feeling tremulous [...] All questions answered. Adult diet Regular; GI Kelly (GERD/Peptic Ulcer) 24HR INTAKE/OUTPUT: Intake/Output Summary (Last 24 hours) at 01/19/2024 0864 Last data filed at 01/18/2024 0927 Gross per 24 hour Intake 12.67 ml Output -- Net 12.67 ml Past Medical History: Past Medical History: Diagnosis Date Acid reflux Alcoholism (CMS/HCC) (HCC) Anxiety Back pain Chronic pain syndrome Cirrhosis (HCC) Dehydration 12/22/22-12/26/22 admitted to [facility] Depression Diabetes mellitus (HCC) Gout Hepatitis C Hypertension Hyponatremia Hypothyroidism prison prescription opiate use Nausea and vomiting 12/22/22-12/26/22 admitted at [facility] Pain management Sleep apnea noncompliant with device LABS: CBC: Recent Labs 01/17/245201/18/24 0620 01/19/24 0028 WBC 4.1 5.3 5.6 RBC 3.69* 3.81* 3.62* HGB 11.8* 12.1* 11.5* HCT 33.3* 34.3* 33.2* MCV 90.2 90.0 91.7 RDW 13.2 13.5 13.4 PLT 52* 62* 70* BMP: Recent Labs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 prescription opiate use Nausea and vomiting 12/22/22-12/26/22 admitted at [facility] Pain management Sleep apnea noncompliant with [...] min Stress: No Stress Concern Present (04/03/2023) [place] of Occupational Health - Occupational Stress Questionnaire Feeling of Stress : Not at all Social Connections: Socially Isolated (12/07/2023) Social Connection and Isolation Panel [NHANES] Frequency of Communication with Friends and Family: Never Frequency of Social Gatherings with Friends and Family: Never Attends Nondenominational Services: Never Active Member of Clubs or [...] QT Interval 392 QTC Interval 503 P [place] 0 QRS [place] -57 T Wave [place] 6 [place] Interval 127 Impression Sinus rhythm RBBB and [...] agree with the plan for transfer to [facility] & hospitalization. Code status: Full Code I have discussed code status with patient, and they have elected for FULL CODE at time of admission. They state that they do have an advance directive. Please forward a copy of this H&P to the patient's PCP. Thank you. Hayes Scott MD Division of Hospitalist Medicine Inpatient Medical Services/[facility] Data: Extensive (Two out of three: 3x CAT1, 1x CAT2, 1x CAT3) Risk: Admission to hospital-level care was considered or occurred (HIGH). simfy Phone: 01-15-2024 Note [facility] 01-15-2024 History and physical note Images from [...] chief complaint listed above. Patient presented to [facility] with N/V/D with abdominal pain present [...] syndrome Cirrhosis (HCC) Dehydration 12/22/22-12/26/22 admitted to [facility] Depression Diabetes mellitus (HCC) Gout Hepatitis C Hypertension Hyponatremia Hypothyroidism prison prescription opiate use Nausea and vomiting 12/22/22-12/26/22 admitted at [facility] Pain management Sleep apnea noncompliant with [...] min Stress: No Stress Concern Present (04/03/2023) [place] of Occupational Health - Occupational Stress Questionnaire Feeling of Stress : Not at all Social Connections: Socially Isolated (12/07/2023) Social Connection and Isolation Panel [NHANES] Frequency of Communication with Friends and Family: Never Frequency of Social Gatherings with Friends and Family: Never Attends Nondenominational Services: Never Active Member of Clubs or [...] QT Interval 392 QTC Interval 503 P [place] 0 QRS [place] -57 T Wave [place] 6 [place] Interval 127 Impression Sinus rhythm RBBB and [...] agree with the plan for transfer to [facility] & hospitalization. Code status: Full Code I have discussed code status with patient, and they have elected for FULL CODE at time of admission. They state that they do have an advance directive. Please forward a copy of this H&P to the patient's PCP. Thank you. Hayes Scott MD Division of Hospitalist Medicine Inpatient Medical Services/[facility] Data: Extensive (Two out of three: 3x CAT1, 1x CAT2, 1x CAT3) Risk: Admission to hospital-level care was considered or occurred (HIGH). documented in this encounter [facility] 01-15-2024 Emergency department Note Phoned [facility]. Hand off report given to MEGGAN Laurent. Nurse requesting that patient have another dose of ativan prior to leaving. Physician informed. Pratibha Okeefe RN 01/15/24 2606 [facility] 01-15-2024 Emergency department Note Phoned [facility] [...] otherwise acutely negative except as in the [place]. 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 Procedure Abnormality Status --------- ------ Complete Urinalysis[[id number]] Abnormal Final result Please view results for [...] after the patient's nausea improved. Admitted to [facility]. Diagnoses as of 01/15/24 1506 Alcohol [...] none Discussions with other clinicians: Admitting team US ACS Chronic conditions impacting care: Hepatitis C [...] squad to room 6. Patient transferred from [facility] to ED bed by medics without difficulty. Patient called squad for generalized weakness and alcohol withdrawal. Patient actively coughing, vomiting and shaking upon arrival. Patient admits to drinking 18 beers yesterday but has had nothing today because he feels ill. Patient also complains of headache and diarrhea. Patient placed on bus monitor and CIWA done upon arrival. Seizure pads placed on bed. documented in this encounter [facility] 01-15-2024 Emergency department Note RN spoke Christie per patient request and asked her to bring him glasses and his cane, Christie acknowledged and thanked RN for the call. Aubree Ratliff RN 01/15/24 1322 [facility] 01-15-2024 Note NOTE: This result is for medical treatment only. Analysis performed using non-forensic procedures. [facility] 01-15-2024 Emergency department Note Patient declined anything to eat or drink at this time. Call light within reach Pratibha Okeefe RN 01/15/24 1241 [facility] 01-15-2024 Emergency department Triage note Patient arrived from home via squad to room 6. Patient transferred from [facility] to ED bed by medics without difficulty. Patient called squad for generalized weakness and alcohol withdrawal. Patient actively coughing, vomiting and shaking upon arrival. Patient admits to drinking 18 beers yesterday but has had nothing today because he feels ill. Patient also complains of headache and diarrhea. Patient placed on bus monitor and CIWA done upon arrival. Seizure pads placed on bed. [facility] 01-15-2024 Physician Emergency department Note EMERGENCY [...] otherwise acutely negative except as in the [place]. 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 Procedure Abnormality Status --------- ------ Complete Urinalysis[[id number]] Abnormal Final result Please view results for [...] after the patient's nausea improved. Admitted to [facility]. Diagnoses as of 01/15/24 1506 Alcohol [...] Medicine Provider Daniel Ewing DO 01/15/24 1510 [facility] 12-25-2023 Note HNO ID: [id number] Author: CURTIS ISABEL RT(R) Service: ? Author Type: 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 Type: Progress Notes Filed: 12/25/2023 14:59 Note [...] PATIENT PRESENTS WITH AN IMPLANTABLE OR ATTACHED DENTAL EQUIPMENT MECHANIC: No ALLERGIES: Reviewed and unchanged CONTRAST ALLERGY: [...] DATE: December 25, 2023 TIME: 2:59 PM [facility] 12-24-2023 Note HNO ID: [id number] Author: MUNIRA STALEY PA-C Service: ? Author Type: Physician Garbage Collector Supervisor Type: Progress Notes Filed: 12/24/2023 12:52 Note Text: CHIEF COMPLAINT: Patient presents with: Hospital F/U: ER 10/20/23 HPI Accompanied by significant other Kingsley Ni is a 63 year old male with PMHx positive for DM, HTN, HLD here today for Hospital F/U (ER 10/20/23). Seen last in 2021 for h/o Hep C, cirrhosis, EtOH abuse. Pt performed labs, got recommended EGD through [facility]. 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 Hospital course reviewed and copied/pasted below. No imaging performed. Following with [facility] addition medicine program to d/c alcohol. Currently drinking 12-18 beers per day. Admits to generalized abdominal pain, 10/10, increased acid indigestion on a regular basis, intermittent episodes of emesis daily. No longer taking previously prescribed Protonix. Bms are multiple per day, loose to watery, no blood/black coloring. Weight has been fluctuating at about 10 lbs. Low grade fevers at home. [facility] Admission 10/2023 HOSPITAL COURSE: Woody Ni is [...] diet and he is being discharged to [facility] EGD 2021 OV 2021 Woody Ni is a [...] (FLONASE) 50 mcg/actuation nasal spray Use 1 [place] in the nose once daily as needed. [...] HISTORY Procedure Laterality (more content not included)... [facility] 12-07-2023 History of Present illness Narrative Outpatient Behavioral Health Initial Assessment Start Time: 856, End Time: 100[address] a [address] Appointed Guardian? None Does patient have a Durable Power of Wallpaper Printer Helper? Yes (Name) (Kingsley Carl [facility] only) Does the patient have an Advanced Directive? If Yes, copy received? Patient would like information No Screening Tool Score Comment (required for each screening tool) PHQ-9 23 (PHQ-2: 6) severe NEMESIO-7 21 severe AUDIT-C 12 significant DAST-10 (!) 8 significant Life Events Checklist Positive 8 items selected PCL-5 0 insignificant Language Preferred Language: [place] Languages Spoken: [place] Presenting Problem(s) Reason for visit as reported by patient Chief Complaint Patient presents with Alcohol Problem Referral Information Referral source as reported by patient: Emergency Department (Comment Name) (detox [facility]) History of presenting problem(s) (Onset, duration, precipitating [...] place to sleep or slept in a skilled nursing (including now)?: No Patient feels safe at [...] identify any impact on treatment) Pt denies Taoism/Spiritual Orientation (note if patient identifies any belief in higher power, mormonism belief, or not. 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 [facility] Medicare and Medicaid Legal History Current Legal [...] If the patient has ever been to [facility] or in fdc, list where and how much time the patient served:: NA Is there a relationship between the presenting condition and legal involvement? 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 He was in a snf rehab facility 11/10/23 Past Surgical History: Procedure [...] abstinence: 2 year period of sobriety in 6901-8323. Then his medication got reduced. Twelve-step meeting [...] X4 Level of Consciousness: Alert Thought Processes: [place] Thought Content: Unremarkable Delusions: (none reported or [...] about killing himself. He has support from bertha and other family members. Resources/Interventions Provided Suicidal [...] October followed by 2 wks at a snf facility. Pt was terminated from pain management Jun 2023. He was accompanied by bertha at assessment. He collects disability. Pt has [...] house. He communicates with family and live-in [facility]. He reported a friend delivers his alcohol but has been advised not to do so anymore. He reported Dr. Márquez used to prescribe him Lexapro and Wellbutrin but she relocated to [place]. Pt interested in establishing care with a psychiatrist. Pt advised to contact [facility] psychiatry or community mental health. [...] PM HIPOLITO Lafleur documented in this encounter [facility] 10-27-2023 History of Present illness Narrative Report given to Iliana at [facility]. Images from the original note were not included. PHYSICAL THERAPY [facility] Treatment Note Name/MRN: Woody Ni ([id number]) Date of : 1960 Age: 63 y.o. Room/Bed: B4-454/B4454 B Visit #: 1 out of 5 visits Discharge Recommendation: Senior Living Facility Equipment Needed: No Prior Level of [...] note were not included. OCCUPATIONAL THERAPY [facility] Treatment Note Name/MRN: Woody Ni ([id number]) Date of : 1960 Age: 63 y.o. Room/Bed: B4454/B4454 B Visit #: 2 out of 5 visits Discharge Recommendation: Senior Living Facility Equipment Needed: No Prior Level of [...] none # Anticipated Discharge - Date - 2 d - Location - Skilled Facility - Pending the following - auth KACIE BENZ DO 10/25/23 9:56 AM Patient seen and chart reviewed. No bleed or thrombosis. Afebrile. Adequate oxygenation on room air. Baseline mentation. Persistent low grade HTN and tachycardia. Exam otherwise stable X 5 systems. Hgb 11.4 WBC 3.0 K Platelets 37 K BUN 6 Creatinine 0.59 GFR > 90 ml/min. LDH 231 Haptoglobin 161.5. No hemolysis. Pancytopenia unchanged. Discussed with patient, , and senior staff specialized employment. Total visit time > 35 minutes. 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 Pharmacy has raised the possibility of spontaneous HIT even without heparin exposure. Low possibility for HIT on [place] criteria. Will order PF4 titer. Discussed with patient's senior staff specialized employment. Will continue to monitor. Total visit time > 35 minutes. Images from the original note were not included. PHYSICAL THERAPY [facility] Name/MRN: Woody Ni ([id number]) Date: 10/23/2023 Chart review completed this date. PT attempted. RN cleared for therapy. States pt is currently on the BSC. BILLET GRINDER enters the room to find pt in bed c/o not being allowed to use the BSC. BILLET GRINDER notices BSC lid up with urine in the basin. Pt states nsg won't let him get up for anything...not to walk, go to the bathroom, nothing! BILLET GRINDER explains she is there to see how he is moving and to allow him to get up and move about. Pt scoffs and says, No! The nurse says I can't get up so I am not getting up." Pt then rolls away from BILLET GRINDER and closes his eyes. Max encouragement provided with no success. Multiple options for therapy participation provided with no success. PT will continue to follow. Will re-attempt another time/date as schedule permits. Iliana Anne BILLET GRINDER Images from the original note were not included. OCCUPATIONAL THERAPY [facility] Treatment Note Name/MRN: Woody Ni ([id number]) Date of : 1960 Age: 63 y.o. Room/Bed: B4454/B4454 B Visit #: 1 out of 5 visits Discharge Recommendation: Senior Living Facility Equipment Needed: No Prior Level of [...] at risk for falls, nurse notified, and building rental manager present Restraints: No Education Education Given To: [...] a withdrawal standpoint. 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 alcoholism but no signs of bleeding or [...] (gastrocnemius) Fluid Accumulation: No significant fluid accumulation Crime Prevention Worker Strength: Not Performed Nutrition Assessment: Pt was [...] (kg): 73 kg Total Energy Requirements (kcals/day): 5019-1908 kcals (25-30 kcals/kg) Weight Used for Protein Requirements: Current Weight in Kg Used for Protein Requirements: 73 kg Estimated Total Protein (g/day): 73-88 (1-1.2g/kg) Estimated Daily Total Fluid (ml/day): 8862-0234 ml/day or per MD Nutrition Related Findings: [...] 08/2022, 182#-02/13/23) % Weight Change (Calculated): -23.9 [place] Body Weight (lbs) (Calculated): 166 lbs [place] Body Weight (Kg) (Calculated): 75 kg % [place] Body Weight (Calculated): 96.3 % BMI (kg/m2) [...] soon to determine Kristine George RD Contact: *[phone] or via Secure Chat Department of Family [...] note were not included. OCCUPATIONAL THERAPY [facility] Initial Evaluation Name/MRN: Woody Ni ([id number]) Evaluation Date: 10/21/2023 Date of : 1960 Admission Date: 10/20/2023 5:00 PM Age: 63 y.o. 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 Goals and/or treatment plan was established in collaboration with patient/family/other representatives. Images from the original note were not included. PHYSICAL THERAPY [facility] Initial Evaluation Name/MRN: Woody Ni ([id number]) Evaluation Date: 10/21/2023 Date of : 1960 Admission Date: 10/20/2023 5:00 PM Age: 63 y.o. 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 Goals and/or treatment plan was established in collaboration with patient/family/other representatives. documented in this encounter [facility] 10-27-2023 Note Formatting of this n [...] if any other needs or concerns arise. [facility] 10-27-2023 Miscellaneous Notes SW follow up. [...] and TCC of transportation time. Notified [facility] of transportation via Senior Living. Will update patient at bedside. Patient does have a SW consult for HCPOA. Will complete HCPOA paperwork with patient prior to discharge. Patient Choice Patient Name: WOODY NI Date of : 1960 All Providers Sent Referral Name: [facility] LIZ Member Phone: [phone] [address] [address] [place], [place] [id number] Discharge med list transmitted to [facility] [facility] per [facility] request. 7000 was entered into [facility] for the SNF- Facility is aware Discharge order written. Tasked [facility] to complete 7000 and send dc packet to [facility]. Did update primary care nurse and social work assistant. . Updated attending that auth has been obtained for [facility]. Checking to determine if auth is good through tomorrow. . Images from the original note were not included. [facility] Palliative Care Transitions of Care Note Woody [...] Chronic alcohol abuse who was admitted to [facility] on 10/20/23 with complain of nausea, [...] been signed, will request assistance from social work assistant - discussed CPR, intubation, vent - patient [...] auth for snf and choices." 10/23/2023 Kacie Benz, DO 10/21/2023 5:41 PM 10/23/2023 Kacie Benz, DO 10/20/2023 7:35 PM 10/23/2023 Khurram Bob MD 10/20/2023 6:20 PM Length of Stay (Days): 6 GMLOS: 4.7 Referral placed to SNF-[facility] via [facility] per TCC request. Await review and response regarding ability to accept. TCC notified. Care Managment Initial Assessment Date: 10/22/2023 Patient Name: Woody Ni : 1960 Patient Information Source of Information: Patient Name/Contact Information: KINGSLEY CARL [phone] SIGNIFICANT OTHER Cognition/Language: WFL - Within Functional Limits Permission given to speak with patient help desk representative/caregiver as indicated: Yes Confirmation of Payer with patient/family: Payer Name: [employer]ICAID Pall Mall: Yes Confirmation of Primary Care Physician: Confirmed PCP Name: BRYANT Seen in last 2 years?: Yes Primary Caregiver: Self If assistance needed, confirmed caregiver ready, willing and able to care for patient at discharge: Yes Confirmed with: PER PATIENT HIS S.OBaylee WYNN Living Arrangements Current Residence: House Number of Floors 2 Number of Entry Steps: 3 Bed/Bath Levels: Both first floor Facility: Facility Name: NA Plan to Return: Comments (UNCERTAIN) Lives with: Spouse/significant other, Children (SPOUSE AND 41 YR OLD STEP SON MARTIN MONTANEZ) Support Systems: Spouse/significant other, Children Activities of Daily Living Ambulation: Independent (FWW) Bathing/Dressing: Assistance Elimination/Continence/Toileting: Independent (BSC) Feeding: Independent Who Assists with Activities of Daily Living: NA Instrumental Activities of Daily Living Prescription Coverage: Yes Pharmacy Used: [facility] [place] Medication Management: Prescription pick-up Who assists with [...] WITH HHC VS SNF Discharge Planning Actions: Senior Living Facility referral indicated [place] choice: [place] of choice discussed, Choice list provided Patient's [...] and household tasks. Therapy is recommending snf. Mir provide with snf list. States he will need to discuss with his significant other regarding if he will need snf upon discharge. Mir call and spoke with Kingsley and she would like referral made to [facility]. [facility]ed [facility] to place referral to [facility] and [...] the shift include documented in this encounter [facility] 10-27-2023 Hospital course Narrative Discharge Summary [...] diet and he is being discharged to [facility] SIGNIFICANT DIAGNOSTIC STUDIES: Labs xrays CONSULTANTS: GI [...] Complexity: follow up within 7-14 calendar days (99896) [] Severe Complexity: follow up within 7 calendar days (82446) FOLLOW UP TESTING, PENDING RESULTS OR REFERRALS AT TRANSITIONAL CARE VISIT: [] Yes [] No PENDING STUDIES: none DISPOSITION: Skilled Facility FACILITY/HOME CARE AGENCY NAME: anastacia rhodes Follow up with Wild Rowe DO [address] [place] [address] [phone] Schedule an appointment as soon as possible for a visit [facility] to help with alcohol cravings [facility] Psych [address] [address] Schedule an appointment as soon as [...] 10/27/2023, 9:00 AM documented in this encounter [facility] 10-27-2023 Note Formatting of this n ote might be different from the original. Transportation arranged through [facility] by cot set for 12 pm. Notified RN and TCC of transportation time. Notified [facility] of transportation via [facility]. Will update patient at bedside. Patient does have a SW consult for HCPOA. Will complete HCPOA paperwork with patient prior to discharge. [facility] 10-27-2023 Note Formatting of this n ote might be different from the original. Patient Choice Patient Name: WOODY NI Date of : 1960 All Providers Sent Referral Name: [facility] - [facility] Phone: [phone] Address: [address] [place] [address] [facility] 10-27-2023 Note Formatting of this n ote might be different from the original. Discharge med list transmitted to [facility]- [facility] Rhodes via [facility] per TCC request. 7000 was entered into [facility] for the SNF- Facility is aware [facility] 10-27-2023 Note Formatting of this n ote might be different from the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 Sleep apnea noncompliant with [...] Needs Assist Receives Help From: Spouse Active Inventory Accountant: N/A Prior Level of Function ADL Assistance: [...] Care supervision is transferred to a [facility] Therapy Services Occupational Therapist. Goals and/or treatment plan was established in collaboration with patient/family/other representatives. documented in this encounter [facility] 07-05-2023 Hospital course Narrative Discharge Summary [...] himself. He apparently signed out AMA from [facility] and then started drinking again. He states [...] Complexity: follow up within 7-14 calendar days (58021) [] Severe Complexity: follow up within 7 calendar days (40194) FOLLOW UP TESTING, PENDING RESULTS OR REFERRALS AT TRANSITIONAL CARE VISIT: [] Yes [] No PENDING STUDIES: none DISPOSITION: Home FACILITY/HOME CARE AGENCY NAME: Follow up with Jani Quezada [address] [facility] [address] In 2 days INSTRUCTIONS [...] 07/05/2023, 8:46 PM documented in this encounter [facility] 07-04-2023 Note Formatting of this n ote might be different from the original. Did provide patient with snf list with counseling programs available to choose for post discharge therapy. [facility] 07-04-2023 Note Formatting of this n ote might be different from the original. Did provide patient with snf list with counseling programs available to choose for post discharge therapy. [facility] 07-04-2023 Miscellaneous Notes Did provide patient [...] to have falls. Await responses from , [facility] and [facility]. S/W, follow up [...] job after 4 weeks there. [place]: No [place] Medicare, PHP with [facility] : No response, placed another call [facility]: No Medicare 1st Step: LVM Dennys Eubanks: [facility] : No bed, maybe an opening next week, faxing info over to [phone]. S/W, follow up Que Okeefe from [facility] did respond and stated they do have open Residential beds. Que did ask for patient clinical info. I did email Que the info this AM. I did include patient therapy evals to show patient is ambulating and recommendation is for [facility]. Await clinical review. S/W, follow up Calls placed to the following Treatment Centers: [facility] for [facility] ) [facility]: [phone] 180: No male beds at this time [facility]: [phone] Await calls back Care Managment Initial Assessment Date: 07/01/2023 Patient Name: Woody Ni : 1960 Patient Information Source of Information: Patient Cognition/Language: WFL - Within Functional Limits Permission given to speak with patient help desk representative/caregiver as indicated: Yes Confirmation of Payer with patient/family: Yes Payer Name: [place]/ Medicaid secondary [place]: Yes (Is not Active with [facility]) [...] Prescription Coverage: Yes Pharmacy Used: [facility] [place] Medication Management: Independent (christie will assist if [...] 26 years [place]. They reside in a [facility] with 1SE. The patient reports he lives on the lower level only, bed and bath on this floor. The patient has a walker, cane and wheelchair. He does not have home O2. He reports no outside services coming in to the home. He sees Dr. Quezada and uses the [facility] in [place] as his pharmacy. He is a but is not in the [place] medical system. The patient reports that his [...] He notes he recently was sent to [facility] for some short term rehab. Chart review reveals he was just sent to the facility on 06/26. He notes he left the facility as they ran out of his Phenobarbitol. He was sent to the facility skilled under his [place] insurance. The patient has been seen again by therapy and HHC has been recommended. The patient has voiced that he desires Residential Treatment for his ETOH. S/W will work to see if patient can get into a facility from here. ELL Murray documented in this encounter [facility] 07-03-2023 Note Formatting of this n ote might be different from the original. S/W, follow up PT this afternoon is now recommending SNF. I did update [facility] of this. I am still awaiting responses back from Treatment Centers. SNFs with a Drug Counseling program would be beneficial for patient. I will continue with search for Treatment Center while SNF being pursued. [facility] 07-03-2023 Note Formatting of this n ote might be different from the original. S/W, follow up PT this afternoon is now recommending SNF. I did update [facility] of this. I am still awaiting responses back from Treatment Centers. SNFs with a Drug Counseling program would be beneficial for patient. I will continue with search for Treatment Center while SNF being pursued. [facility] 07-03-2023 Note Formatting of this n [...] [place], [place] [facility] and [facility]. [facility] 07-03-2023 Note Formatting of this n ote [...] responses from , y and [facility]. [facility] 07-03-2023 Note Formatting of this n [...] job after 4 weeks there. [facility]: No [place] Medicare, PHP with [facility] : No response, placed another call [facility]: No Medicare 1st Step: MORRIS Eubanks: Misha : No bed, maybe an opening next week, faxing info over to [phone]. [facility] 07-03-2023 Note Formatting of this n [...] job after 4 weeks there. [facility]: No [place] Medicare, PHP with [facility] [place]: No response, placed another call [facility]: No Medicare 1st Step: LVM Dennys Henderson: LVM : No bed, maybe an opening next week, faxing info over to [phone]. [facility] 07-03-2023 Note Formatting of this n ote might be different from the original. S/W, follow up Que Maldonado from [facility] did respond and stated they do have open Residential beds. Que did ask for patient clinical info. I did email Que the info this AM. I did include patient therapy evals to show patient is ambulating and recommendation is for HHC. Await clinical review. [facility] 07-03-2023 Note Formatting of this n ote might be different from the original. S/W, follow up Que Okeefe from [facility] did respond and stated they do have open Residential beds. Que did ask for patient clinical info. I did email Que the info this AM. I did include patient therapy evals to show patient is ambulating and recommendation is for HHC. Await clinical review. T [facility] 07-02-2023 Note Formatting of this n ote might be different from the original. S/W, follow up Calls placed to the following Treatment Centers: [facility]: Message left for Hafsa Perez ) [facility]: [phone] 180: No male beds at this time [facility]: [phone] Await calls back [facility]ach[facility] 07-02-2023 Note Formatting of this n ote might be different from the original. S/W, follow up Calls placed to the following Treatment Centers: [facility]: Message left for Hafsa Perez ) [facility]: [phone] 180: No male beds at this time [facility] [place]: [phone] Await calls back [facility] 07-01-2023 Consult note Associated Order (s): IP [...] of alcoholism. He was just admitted at [facility] for the same reasons, from 06/21/23 - 06/26/23. He was seen by my colleague and detoxed from alcohol with a phenobarbital taper. 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 He was discharged directly to [facility] for snf due to generalized weakness, ambulation issues, etc. [...] patient had liver biopsy while admitted at [facility] in 12/2022 and findings consistent with [...] Chem Dep IOP: denies. Detoxifications: several at [facility]. 12 Step Meetings: denies. 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 Then enroll in [facility]'s chemical dependency intensive outpatient program, [...] clinical information on the day of visit. [facility] 07-01-2023 Consult note Associated Order (s): [...] of alcoholism. He was just admitted at [facility] for the same reasons, from 06/21/23 - 06/26/23. He was seen by my colleague and detoxed from alcohol with a phenobarbital taper. 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 He was discharged directly to [facility] for snf due to generalized weakness, ambulation issues, etc. 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 Detoxifications: several at [facility]. 12 Step Meetings: denies. Medication Assisted [...] syndrome Cirrhosis (HCC) Dehydration 12/22/22-12/26/22 admitted to [facility] Depression Diabetes mellitus (HCC) Gout Hepatitis C Hypertension Hyponatremia Hypothyroidism prison prescription opiate use Nausea and vomiting 12/22/22-12/26/22 admitted at [facility] Pain management Sleep apnea noncompliant with [...] min Stress: No Stress Concern Present (04/03/2023) [place] [employer] - Occupational Stress Questionnaire [...] 06/30/2023 [facility] NI : 1960 [id number] Exam Date/Time: 06/30/2023 17:48 Procedure: CT HEAD [...] 06/30/2023 Patient Name: WOODY NI : 1960 [facility]#: [id number] Exam Date/Time: 06/30/2023 17:49 Procedure: CT CERVICAL [...] and regain strength. Then enroll in [facility]'s chemical dependency intensive outpatient program, [...] visit. 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 Ophelia Ramos APRN, INTERPRETER [facility], [facility] [phone] office Associated attestation - Kennedi Pérez MD - 07/01/2023 3:34 PM EDT Seen and examined. Agree with above A and p. Hyponatremia responding to volume. Borderline rapid overcorrection of Na, hold IVF. Periodic Na checks throughout the rest of the day to trend Na. Alcohol cessation counseling. documented in this encounter [facility] 07-01-2023 Note Formatting of this n ote might be different from the original. Care Managment Initial Assessment Date: 07/01/2023 Patient Name: Woody Ni : 1960 Patient Information Source of Information: Patient Cognition/Language: WFL - Within Functional Limits Permission given to speak with patient help desk representative/caregiver as indicated: Yes Confirmation of Payer with patient/family: Yes Payer Name: [place]/ Medicaid secondary [place]: Yes (Is not Active with [facility] medical) [...] Who Assists with Activities of Daily Living: ChristieDennis Instrumental Activities of Daily Living Prescription Coverage: Yes Pharmacy Used: [facility] [place] Medication Management: Independent (christie will assist if [...] 26 years [place]. They reside in a [facility] with 1SE. The patient reports he lives on the lower level only, bed and bath on this floor. The patient has a walker, cane and wheelchair. He does not have home O2. He reports no outside services coming in to the home. He sees Dr. Quezada and uses the [facility] in [place] as his pharmacy. He is a [place] but [place] in the [place]. The patient reports that his [...] He notes he recently was sent to [facility] for some short term rehab. Chart review reveals he was just sent to the facility on 06/26. He notes he left the facility as they ran out of his Phenobarbitol. He was sent to the facility skilled under his [place] insurance. The patient has been seen again by therapy and HHC has been recommended. The patient has voiced that he desires Residential Treatment for his ETOH. S/W will work to see if patient can get into a facility from here. ELL Murray [facility] 07-01-2023 Note Formatting of this n ote might be different from the original. Care Managment Initial Assessment Date: 07/01/2023 Patient Name: Woody Ni : 1960 Patient Information Source of Information: Patient Cognition/Language: WFL - Within Functional Limits Permission given to speak with patient help desk representative/caregiver as indicated: Yes Confirmation of Payer with patient/family: Yes Payer Name: [place]/ Medicaid secondary [place]: [place] ([place]) Confirmation of Primary Care Physician: Confirmed [...] Daily Living Prescription Coverage: Yes Pharmacy Used: [facility] Medication Management: Independent (christie will assist [...] 26 years [place]. They reside in a [place] with 1SE. The patient reports he lives on the lower level only, bed and bath on this floor. The patient has a walker, cane and wheelchair. He does not have home O2. He reports no outside services coming in to the home. He sees Dr. Quezada and uses the [facility] in [place] as his pharmacy. He is a [place]. The patient reports that his [...] He notes he recently was sent to [facility] for some short term rehab. Chart review reveals he was just sent to the facility on 06/26. He notes he left the facility as they ran out of his Phenobarbitol. He was sent to the facility skilled under his [place] insurance. The patient has been seen again by therapy and HHC has been recommended. The patient has voiced that he desires Residential Treatment for his ETOH. S/W will work to see if patient can get into a facility from here. ELL Murray [facility] 07-01-2023 Consult note Associated Order (s): [...] syndrome Cirrhosis (HCC) Dehydration 12/22/22-12/26/22 admitted to [facility] Depression Diabetes mellitus (HCC) Gout Hepatitis C Hypertension Hyponatremia Hypothyroidism prison prescription opiate use Nausea and vomiting 12/22/22-12/26/22 admitted at [facility] Pain management Sleep apnea noncompliant with [...] min Stress: No Stress Concern Present (04/03/2023) [place] [employer] Occupational Health - Occupational Stress Questionnaire [...] output data in the 24 hours ending 07/01/23 0921 Physical Exam: Appearance: NAD, awake, alert, cooperative [...] with any questions or concerns. Ophelia Ramos, SALON STYLIST, INTERPRETER [facility], [facility] [phone] office Associated attestation - Kennedi Pérez MD - 07/01/2023 3:34 PM EDT Seen and examined. Agree with above A and p. Hyponatremia responding to volume. Borderline rapid overcorrection of Na, hold IVF. Periodic Na checks throughout the rest of the day to trend Na. Alcohol cessation counseling. [facility] 07-01-2023 History and physical note Department [...] himself. He apparently signed out AMA from [facility] and then started drinking again. 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 He apparently signed out AMA from [facility] and then started drinking again. He states they wouldn't give him phenobarb there his workup today shows a sodium of 119 he is being admitted for further treatment Past Medical History: Past Medical History: Diagnosis Date Acid reflux Alcoholism (CMS/HCC) (HCC) Anxiety Back pain Chronic pain syndrome Cirrhosis (HCC) Dehydration 12/22/22-12/26/22 admitted to [facility] Depression Diabetes mellitus (HCC) Gout Hepatitis C Hypertension Hyponatremia Hypothyroidism prison prescription opiate use Nausea and vomiting 12/22/22-12/26/22 admitted at [facility] Pain management Sleep apnea noncompliant with [...] min Stress: No Stress Concern Present (04/03/2023) [place] [employer] - Occupational Stress Questionnaire [...] 07/01/23 9:04 AM documented in this encounter [facility] 06-30-2023 Note NOTE: This result is for medical treatment only. Analysis performed using non-forensic procedures. [facility] 06-30-2023 Emergency department Note Pt to CT Alea Okeefe RN 06/30/231747 [facility] 06-30-2023 Emergency department Note Pt to [...] syndrome Cirrhosis (HCC) Dehydration 12/22/22-12/26/22 admitted to [facility] Depression Diabetes mellitus (HCC) Gout Hepatitis C Hypertension Hyponatremia Hypothyroidism prison prescription opiate use Nausea and vomiting 12/22/22-12/26/22 admitted at [facility] Pain management Sleep apnea noncompliant with [...] min Stress: No Stress Concern Present (04/03/2023) [place] [employer] - Occupational Stress Questionnaire [...] [facility] (Per Emergency Physician): Interpretation per the [...] get him readmitted. Diagnoses as of 06/30/23 1907 Hyponatremia Medications - No data to display [...] Emergency Medicine Provider Steve Whitley MD 06/30/23 4051 Steve Whitley MD 06/30/23 7977 Pt presents with increasing falls. Was recently sent to group home where he left on his own. Pt admits to drinking a case of beer daily. States he is currently drunk. Pt has generalized bruising to whole body from previous falls. Visitor with pt states pt hit his head last night with fall, no LOC. Not on blood thinners. documented in this encounter [facility] 06-30-2023 Emergency department Triage note Pt [...] fall, no LOC. Not on blood thinners. [facility] 06-30-2023 Physician Emergency department Note EMERGENCY [...] syndrome Cirrhosis (HCC) Dehydration 12/22/22-12/26/22 admitted to [facility] Depression Diabetes mellitus (HCC) Gout Hepatitis C Hypertension Hyponatremia Hypothyroidism prison prescription opiate use Nausea and vomiting 12/22/22-12/26/22 admitted at [facility] Pain management Sleep apnea noncompliant with [...] min Stress: No Stress Concern Present (04/03/2023) [place] [employer] - Occupational Stress Questionnaire [...] get him readmitted. Diagnoses as of 06/30/23 1907 Hyponatremia Medications - No data to display [...] Emergency Medicine Provider Steve Whitley MD 06/30/23 [id number] Steve Whitley MD 06/30/23 1907 [facility] 05-26-2023 Telephone encounter Note S: Patient's called to cancel appointment. B: Onset of symptoms/concern 05/26/2023 at 08;00 A: Pt has no transportation to appointment. R: Please call pt back at [phone] to reschedule. Appointment cancelled. Reason for Disposition [...] Protocols used: Information Only Call - No [id number] [facility] 05-26-2023 Miscellaneous Notes S: Patient's called to cancel appointment. B: Onset of symptoms/concern 05/26/2023 at 08;00 A: Pt has no transportation to appointment. R: Please call pt back at [phone] to reschedule. Appointment cancelled. Reason for Disposition [...] Protocols used: Information Only Call - No [id number] documented in this encounter [facility] 04-15-2023 History of Present illness Narrative [...] Last attempt to quit: 1983 Years since quittin.5 Smokeless tobacco: Former Vaping [...] min Stress: No Stress Concern Present (04/03/2023) [place] [employer] - Occupational Stress Questionnaire [...] syndrome Cirrhosis (HCC) Dehydration 12/22/22-12/26/22 admitted to [facility] Depression Diabetes mellitus (HCC) Gout Hepatitis C Hypertension Hyponatremia Hypothyroidism prison prescription opiate use Nausea and vomiting 12/22/22-12/26/22 admitted at [facility] Pain management Sleep apnea noncompliant with [...] mouth 2 times daily. 04/15/23 04/14/24 Ced Okeefe MD fluticasone (Flonase) 50 MCG/ACT nasal spray Administer 1 spray into each nostril daily as needed. 04/27/17 Historical Provider, folic acid (Folvite) 1 MG tablet Take 1 tablet (1 mg) by mouth daily. Do not start before April 16, 2023. 04/16/23 04/15/24 Ced Okeefe MD ipratropium (Atrovent) 0.02 % nebulizer solution [...] start before April 16, 2023. 04/16/23 Ced Okeefe MD losartan (Cozaar) 100 MG tablet Take 1 tablet (100 mg) by mouth daily. Do not start before February 15, 2023. 02/15/23 02/15/24 Kacie Benz, niacin 100 MG tablet Every 24 hours. [...] up to 7 days. 04/15/23 04/22/23 Ced Okeefe MD oxyCODONE (Roxicodone) 10 MG immediate release [...] start before April 16, 2023. 04/16/23 Ced Okeefe MD Inpatient Scheduled Meds: amLODIPine, 2.5 mg, [...] dependency program which is offered via the [facility]. FLAVIO SHERMAN MD Addiction Medicine 04/15/2023 at 12:03 PM -35- minutes were spent reviewing the patient's records, evaluating the patient, entering orders, coordinating care with the treatment team, and creating a progress note. Narrative portions of the note are written utilizing TextualAds software. While every effort is made to dictate clearly and proofread, errors in the dictation may still occur. If there are any questions regarding the dictation please do not hesitate to contact the author. [facility] Progress Note [...] PPI if possible 2/2 hypomagnesemia D/w Dr Arya LOCKE No further changes Ok for discharge planning from renal standpoint, outpatient BMP ordered and needs close follow up with nephrology in 1 week Will follow. Thank you for the consult and the opportunity to participate in the care of this patient. Please do not hesitate to call with any questions or concerns. Ophelia Ramos APRN, INTERPRETER [facility], [facility] [phone] office [facility] Progress Note [...] PPI if possible 2/2 hypomagnesemia D/w Dr Arya LOCKE No further changes Will follow. Thank you for the consult and the opportunity to participate in the care of this patient. Please do not hesitate to call with any questions or concerns. Ophelia Ramos, LEAH, INTERPRETER [facility], [facility] [phone] office Associated attestation - Kennedi Pérez MD - 04/14/2023 4:52 PM EDT I have reviewed the above assessment and plan with the DIRECTOR OF LEARNING. I agree with above note. Hyponatremia +, worsening. Needs to eat more and have nausea controlled. NS x 500 ml today. Will not increase sodium tablets as that will worsen BP and volume status Okay to dc from renal standpoint as well as nausea will be taken care of outpatient. Complicated MDM. Images from the original note were not included. Hospitalist Progress Note 04/14/[id number]: Please secure chat me for patient care issues. [phone]: Please secure chat [facility] Hospitalist for any issues. Subjective: Admit Date: 04/09/2023 PCP: Jani Quezada Room#: B2-260/B2-260 A Chief complaint: poor oral intake Interval History: Poor oral intake. Nausea +, no vomiting. Afebrile. No abdominal pain. Adult diet Regular; 1200 ml @[id number]@ 24HR INTAKE/OUTPUT: Intake/Output Summary (Last 24 hours) at 04/14/2023 1136 Last data filed at 04/14/2023 1100 Gross per 24 hour Intake 520 ml Output 50 ml Net 470 ml Past Medical History: Past Medical History: Diagnosis Date Acid reflux Alcoholism (CMS/HCC) (HCC) Anxiety Back pain Chronic pain syndrome Cirrhosis (HCC) Dehydration 12/22/22-12/26/22 admitted to [facility] Depression Diabetes mellitus (HCC) Gout Hepatitis C Hypertension Hyponatremia Hypothyroidism prison prescription opiate use Nausea and vomiting 12/22/22-12/26/22 admitted at [facility] Pain management Sleep apnea noncompliant with device LABS: CBC: Recent Labs 04/12/2344104/13/2332604/14/23 020 WBC 3.1* 3.1* 3.5* RBC 2.82* 2.99* 3.03* HGB 9.8* 10.3* 10.3* HCT 27.9* 29.7* 29.8* MCV 99.1* 99.2* 98.4* RDW 14.0 13.7 13.8 PLT 134* 145 153 BMP: Recent Labs 04/12/2344104/13/2332604/14/23 020 NA 131* 127* 125* K 3.6 3.5 3.7 CL 104 99 97* CO2 24 24 21* BUN 8* 8* 6* CREATININE 0.90 0.76 0.77 GLUCOSE 97 91 95 CALCIUM 8.2* 7.9* 8.4 ANIONGAP 4 4 7 LIVER PROFILE: Recent Labs 04/12/2344104/13/2332604/14/23 0207 AST 75* 67* 83* ALT 50* [...] Emergency Contact: Kingsley Carl Relation: Spouse Ced Okeefe MD Division of Hospitalist Medicine [employer] [facility] PAGER: Epic chat Occupational Therapy Facility/Department: 2[address] [...] (HCC), Gout, Hepatitis C, Hypertension, Hyponatremia, Hypothyroidism, prison prescription opiate use, Nausea and vomiting, Pain management, and Sleep apnea. has a past surgical history that includes Back surgery; Laminectomy; Reynolds tooth extraction; lap,cholecystectomy (historical) (N/A, 01/05/2023); and [...] base quad cane Transfer Assistance: Independent Active Inventory Accountant: No Occupation: On disability Objective Gross Assessment: [...] 9 Unique Griffin OT Physical Therapy Facility/Department: [facility] Physical Therapy Initial Evaluation NAME: Woody Ni [...] no concerns for returning home. Pt declining [facility] PT services. 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 has a past surgical history that includes Back surgery; Laminectomy; Reynolds tooth extraction; lap,cholecystectomy (historical) (N/A, 01/05/2023); and [...] base quad cane Transfer Assistance: Independent Active Inventory Accountant: No Occupation: On disability Objective Observation/Palpation Posture: [...] Out 1314 Minutes 9 Krystle Bull PT [facility] Progress Note Subjective/ 63 [...] polyethylene glycol (PEG) 3350 Data/ Recent Labs 04/11/2321004/12/23 0442 04/13/23 0327 WBC 2.3* 3.1* 3.1* HGB 9.9* 9.8* 10.3* HCT 28.8* 27.9* 29.7* MCV 100.0* 99.1* 99.2* PLT 119* 134* 145 Recent Labs 04/11/2321004/12/23 0442 04/13/23 0327 NA 130* 131* 127* K 3.6 3.6 3.5 CL 103 104 99 CO2 24 GLUCOSE 89 97 91 MG -- [...] any questions or concerns. Ophelia Ramos APRN, INTERPRETER [facility], [facility] [phone] office Associated attestation - Kennedi Pérez MD - 04/13/2023 3:13 PM EDT I have reviewed the above assessment and plan with the DIRECTOR OF LEARNING. I agree with above note. Hyponatremia, hypomagnesemia, [...] detoxification perspective. He was recently detoxified at [place], but shortly after release from the hospital he relapsed. Social History Socioeconomic History Marital status: Spouse name: Not on file Number of children: Not on file Years of education: Not on file Highest education level: Not on file Occupational History Not on file Tobacco Use Smoking status: Every Day Types: Cigars Last attempt to quit: 1983 Years since quittin.5 Smokeless tobacco: Former Vaping [...] min Stress: No Stress Concern Present (04/03/2023) [place] [employer] - Occupational Stress Questionnaire [...] syndrome Cirrhosis (HCC) Dehydration 12/22/22-12/26/22 admitted to [facility] Depression Diabetes mellitus (HCC) Gout Hepatitis C Hypertension Hyponatremia 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 02/15/23 02/15/24 Kacie Benz, DO cyanocobalamin (Vitamin B-12) 1000 MCG/ML injection [...] virtual outpatient CD program affiliated with the [facility]. FLAVIO SHERMAN MD Addiction Medicine 04/13/2023 at 12:48 PM -35- minutes were spent reviewing the patient's records, evaluating the patient, entering orders, coordinating care with the treatment team, and creating a progress note. Narrative portions of the note are written utilizing Textual[employer] software. While every effort is made to dictate clearly and proofread, errors in the dictation may still occur. If there are any questions regarding the dictation please do not hesitate to contact the author. Images from the original note were not included. Hospitalist Progress Note 04/13/2023 [phone]: Please secure chat me for patient care issues. [phone]: Please secure chat [facility] Hospitalist for any issues. Subjective: Admit Date: 04/09/2023 PCP: Jani Quezada Room#: B2-260/B2-260 A Chief complaint: Having nausea since last night, Anila helping Interval History: No overnight issues. Denies chest pain, sob, abdominal pain, diarrhea, constipation, fevers, or chills. 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 Nausea and vomiting 12/22/22-12/26/22 admitted at [facility] Pain management Sleep apnea noncompliant with device LABS: CBC: Recent Labs 04/11/23 0211 04/12/23 0442 04/13/23 0327 WBC 2.3* 3.1* 3.1* RBC 2.88* 2.82* 2.99* HGB 9.9* 9.8* 10.3* HCT 28.8* 27.9* 29.7* MCV 100.0* 99.1* 99.2* RDW 14.2 14.0 13.7 PLT 119* 134* 145 BMP: Recent Labs 04/11/2321004/12/232 04/13/23326 NA 130* 131* 127* K 3.6 3.6 3.5 CL 103 104 99 CO2 24 24 BUN 10 8* 8* CREATININE 0.94 [...] effects, await PT and OT assessments with snf facility placement -am labs, replace lytes prn -increase activity -DVT prophylaxis: [] Lovenox [] Heparin [] SCDs [x] Encourage ambulation [] Already on Anticoagulation Anticipated Discharge - Date -April 14 or - Location -snf facility - Pending the following -bed availability [...] Kingsley Carl Relation: Spouse LAURA STEVENS MD, MD Division of Hospitalist Medicine Acute care solutions PAGER: Epic chat [facility] Progress Note Subjective/ 63 [...] LE edema @MEDCMED@ Data/ Recent Labs 04/09/23203504/11/23 02104/12/23 0442 WBC 3.3* 2.3* 3.1* HGB 10.0* 9.9* 9.8* HCT 28.5* 28.8* 27.9* MCV 96.6 100.0* 99.1* PLT 106* 119* 134* Recent Labs 04/10/23 0529 04/11/23 0211 04/12/23 0442 NA 129* 130* 131* K 4.1 3.6 3.6 CL 101 103 104 CO2 23 22 24 GLUCOSE 83 89 97 BUN 6* [...] note were not included. Hospitalist Progress Note 04/12/[id number]: Please secure chat me for patient care issues. [phone]: Please secure chat [facility] night Hospitalist for any issues. Subjective: Admit Date: 04/09/2023 PCP: Jani Quezada Room#: B2-260/B2-260 A Chief complaint: Hyponatremia and diarrhea improving Interval History: No overnight issues. Denies chest pain, sob, nausea, vomiting, constipation, fevers, or chills. Adult diet Regular; 1200 ml @XTCY3RYBLTS@ 24HR INTAKE/OUTPUT: Intake/Output Summary (Last 24 hours) at 04/12/2023 1217 Last data filed at 04/11/2023 1232 Gross per 24 hour Intake 100 ml Output -- Net 100 ml Past Medical History: Past Medical History: Diagnosis Date Acid reflux Alcoholism (CMS/HCC) (HCC) Anxiety Back pain Chronic pain syndrome Cirrhosis (HCC) Dehydration 12/22/22-12/26/22 admitted to [facility] Depression Diabetes mellitus (HCC) Gout Hepatitis C Hypertension Hyponatremia Hypothyroidism prison prescription opiate use Nausea and vomiting 12/22/22-12/26/22 admitted at [facility] Pain management Sleep apnea noncompliant with device LABS: CBC: Recent Labs 04/09/23203504/11/23 0211 04/12/23 0442 WBC 3.3* 2.3* 3.1* RBC 2.95* 2.88* 2.82* HGB 10.0* 9.9* 9.8* HCT 28.5* 28.8* 27.9* MCV 96.6 100.0* 99.1* RDW 12.8 14.2 14.0 PLT 106* 119* 134* BMP: Recent Labs 04/10/23 0529 04/11/23 0211 04/12/23 0442 NA 129* 130* 131* K 4.1 3.6 3.6 CL 101 103 104 CO2 BUN 6* 10 8* CREATININE 0.94 0.94 0.90 GLUCOSE 83 89 97 CALCIUM 8.2* 8.3* 8.2* ANIONGAP 5 5 4 LIVER PROFILE: Recent Labs 04/10/23 0529 04/11/23 0211 04/12/23 0442 AST 142* 100* 75* ALT 62* 60* [...] Kingsley Carl Relation: Spouse LAURA STEVENS MD, MD Division of Hospitalist Medicine [facility] PAGER: [email or web address] chat [facility]ph[facility] Progress Note [...] volume overload. Will follow. Kennedi Pérez MD [facility] Images from the original note were not included. Hospitalist Progress Note 04/11/2023 [phone]: Please page me ([phone]) for patient care issues. [phone]: Please page [facility] Hospitalist for any issues. Subjective: Admit Date: 04/09/2023 PCP: Jani Quezada Room#: B2-074/B2-616 A Interval History: Patient doing much better this monring he states. He denies chest pain, sob. Still with abdominal pain but states it is alot better. Back pain is a lot better as well. No nausea, vomiting. Also states diarrhea stopped at 4am. No constipation, fevers, or chills. 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 Addiction med consulted/following. He had made a commitment to follow-up with [facility] virtual program. Hopefully he will [...] MD Division of Hospitalist Medicine Inpatient Medical Services/[facility] PAGER: Epic chat documented in this encounter [facility] 04-15-2023 Note Formatting of this n [...] Date/Time Set By Reviewed At 04/15/2023 Ced Okeefe MD 04/15/2023 9:13 AM TCC estimate 04/15/2023 Monica Scott RN 04/14/2023 8:35 AM 04/14/2023 Monica Scott RN 04/13/2023 8:36 AM 04/13/2023 Monica Scott RN 04/10/2023 8:38 AM 04/13/2023 Richie Acosta MD 04/10/2023 7:43 AM 04/12/2023 Richie Acosta MD 04/10/2023 12:25 AM Length of Stay (Days): 5 GMLOS: 2.6 [facility] 04-15-2023 Note Formatting of this n ote [...] Date/Time Set By Reviewed At 04/15/2023 Ced Okeefe MD 04/15/2023 9:13 AM TCC estimate 04/15/2023 Monica Scott RN 04/14/2023 8:35 AM 04/14/2023 Monica Scott RN 04/13/2023 8:36 AM 04/13/2023 Monica Scott RN 04/10/2023 8:38 AM 04/13/2023 Richie Acosta MD 04/10/2023 7:43 AM 04/12/2023 Richie Acosta MD 04/10/2023 12:25 AM Length of Stay (Days): 5 GMLOS: 2.6 [facility] 04-15-2023 Miscellaneous Notes Images from the [...] Date/Time Set By Reviewed At 04/15/2023 Ced Okeefe MD 04/15/2023 9:13 AM TCC estimate 04/15/2023 [...] HCPOA and updated that will inform social work assistant on Thursday that he would like to complete. Hcpoa paperwork. . Care Managment Initial Assessment Date: 04/10/2023 Patient Name: Woody Ni : 1960 Patient Information Source of Information: Patient Cognition/Language: WFL - Within Functional Limits Permission given to speak with patient help desk representative/caregiver as indicated: Yes (Kingsley Carl (Spouse) [phone]) Confirmation of Payer with patient/family: Yes Payer Name: Medicare A&B,, 2 Medicaid [place]: Yes (does not follow with [facility]) Confirmation [...] Coverage: Yes Pharmacy Used: [facility] in [place] Medication Management: Independent Transportation/Shopping: Assistance Provider Transportation/Shopping [...] Monica Scott RN documented in this encounter [facility] 04-15-2023 Hospital course Narrative Discharge Summary [...] consulted , detoxed - follow up with [facility] virtual program. Alcoholic liver disease /alcoholic [...] Your Medications These medications were sent to [facility] [address] [place] [id number] Hours: Thursday to Thursday 10 am to 6 pm famotidine 20 MG tablet folic acid 1 MG tablet Lidocaine 4 % patch ondansetron ODT 4 MG disintegrating tablet thiamine 100 MG tablet DIET: Adult diet Regular; 1200 ml ACTIVITY: No restriction. COMPLEXITY OF FOLLOW UP: [x] Moderate Complexity: follow up within 7-14 calendar days (71274) [] Severe Complexity: follow up within 7 calendar days (29346) FOLLOW UP TESTING, PENDING RESULTS OR REFERRALS AT TRANSITIONAL CARE VISIT: [x] Yes [] No PENDING STUDIES: DISPOSITION: Home FACILITY/HOME CARE AGENCY NAME: Follow up with Jani Alvarezrocael [address] [facility] [address] [facility] [address] Follow up in 1 week(s) cbc/CMP on follow up Ophelia Ramos, SALON STYLIST - INTERPRETER [address] [place] [id number] Follow up in 1 week(s) follow up [...] frame. DISCHARGE TIME: 45 min SIGNED: Ced Okeefe MD 04/15/2023, 11:35 AM documented in this encounter [facility] 04-15-2023 Hospital Discharge instructions Ced Okeefe MD - 04/15/2023 9:14 AM EDT BMP /CMP on follow up with PCP in 1 week. Follow up with PCP in 1 week. Lea Kim RN - 04/15/2023 11:15 AM EDT As tolerated or instructed by physician Lea Kim RN - 04/15/2023 9:32 AM EDT Fluid restriction of 1200 ml. Avoid processed foods high in salt, sugar, and alcohol Ced Okeefe MD - 04/15/2023 9:32 AM EDT Continuity [...] (72.6 kg) Mental Status: {ISAIAS Patient Mental Status:26749} IV Access: {ISAIAS IV Access:16604} Nursing Mobility/ADLs: Walking {GORDON ADL:::"Independent"} Transfer {GORDON ADL:::"Independent"} Bathing {GORDON ADL:::"Independent"} Dressing {GORDON ADL:::"Independent"} Toileting {GORDON ADL:::"Independent"} Feeding {GORDON ADL:::"Independent"} Weed Burner {GORDON ADL:::"Independent"} Med Delivery {yes/no:95382} Wound Care Documentation and Therapy: Wound/Incision 01/05/23 Incision Abdomen - Upper Quadrant (Active) Number of days: 99 Elimination: Continence: Bowel: {yes/no:31546} Bladder: {yes/no:} Urinary Catheter: {ISAIAS Urinary Catheter:06662} Colostomy/Ileostomy/Ileal Conduit: {YES / NO:} Date of Last BM: Intake/Output Summary (Last 24 hours) at 04/15/2023 0932 Last data filed at 04/14/2023 1100 Gross per 24 hour Intake 320 ml Output -- Net 320 ml I/O last 3 completed shifts: In: 420 (5.8 mL/kg) [P.O.:320; I.V.:100 (1.4 mL/kg)] Out: 50 (0.7 mL/kg) [Urine:50 (0 mL/kg/hr)] Weight: 72.6 kg Safety Concerns: {ISAIAS Safety Concerns:05584} Impairments/Disabilities: {ISAIAS Impairments/Disabilities:67459} Nutrition Therapy: Current Nutrition Therapy: {ISAIAS Diet List:17747} Routes of Feeding: {routes of feedin} Liquids: {liquid consistency:28396} Daily Fluid Restriction: {daily fluid restriction:58909} Last Modified Barium Swallow with Video (Video Swallowing Test): {done not done:54062} Treatments at the Time of Hospital Discharge: Respiratory Treatments: Oxygen Therapy: {Therapy; copd oxygen:69553} Ventilator: {ISAIAS Ventilator:88925} Rehab Therapies: {GEN THERAPY DISCIPLINE SCAL:[id number]} Weight Bearing Status/Restrictions: {POD WEIGHT BEARIN} Other Medical Equipment (for information only, NOT a DME order): {Assistive Devices DME:42393} Other Treatments: Patient's personal belongings (please select all that are sent with patient): {ISAIAS Patient Belongings:40795} RN SIGNATURE: {E-signature:89931} CASE MANAGEMENT/SOCIAL WORK SECTION Inpatient Status Date: Readmission Risk Assessment Score: @READMISSIONRISKDETAILS@ Discharging to Facility/ Agency Name: Address: Phone: Fax: Dialysis Facility (if applicable) Name: Address: Dialysis Schedule: Phone: Fax: [employer] Founder/Reconcilement Clerk signature: {E-signature:17975} PHYSICIAN SECTION Prognosis: {Rehab Prognosis:06668} Condition at Discharge: {Patient Condition:96636} Rehab Potential (if transferring to Rehab): {Rehab Prognosis:38337} Recommended Labs or Other Treatments After Discharge: Physician Certification: I certify the above information and transfer of Woody Ni is necessary for the continuing treatment of the diagnosis listed and that he requires {ISAIAS Level of Care:72156} for {greater less than:89337} 30 days. Update Admission H&P: {ISAIAS Changes in H&P:04727} PHYSICIAN SIGNATURE: {E-signature:12535} The following attachments cannot be sent through Care Everywhere.Hyponatremia ([place])documented in this encounter [facility] 04-14-2023 Note Formatting of this n [...] Length of Stay (Days): 4 GMLOS: 2.6 [facility] 04-14-2023 Note Formatting of this n ote [...] Length of Stay (Days): 4 GMLOS: 2.6 T [facility] 04-13-2023 Plan of care note The [...] barriers include continue current care plan. T [facility] 04-13-2023 Note Formatting of this n ote might be different from the original. Patient may be discharged in a.m. to home, once electrolytes stabilize and nausea controlled, did well with PT and OT. T [facility] 04-13-2023 Note Formatting of this n ote might be different from the original. Patient may be discharged in a.m. to home, once electrolytes stabilize and nausea controlled, did well with PT and OT. [facility] 04-13-2023 Note Formatting of this n ote [...] Length of Stay (Days): 3 GMLOS: 2.6 [facility] 04-13-2023 Note Formatting of this n ote [...] Length of Stay (Days): 3 GMLOS: 2.6 [facility] 04-13-2023 Note Formatting of this n ote might be different from the original. Met with patient and his significant other this afternoon to complete HCPOA paperwork. Copies given to patient and his girfriend. Copy placed in the chart. [facility] 04-13-2023 Note Formatting of this n ote might be different from the original. Met with patient and his significant other this afternoon to complete HCPOA paperwork. Copies given to patient and his girfriend. Copy placed in the chart. T [facility] 04-13-2023 Note Formatting of this n [...] print the paperwork and have it ready. [facility] 04-13-2023 Note Formatting of this n ote [...] print the paperwork and have it ready. [facility] 04-11-2023 Note Formatting of this n ote might be different from the original. Provided patient with informational booklet on HCPOA and updated that will inform social work assistant on Thursday that he would like to complete. Hcpoa paperwork. . [facility] 04-11-2023 Note Formatting of this n ote might be different from the original. Provided patient with informational booklet on HCPOA and updated that will inform social work assistant on Thursday that he would like to complete. Hcpoa paperwork. . [facility] 04-11-2023 Consult note Associated Order (s): IP [...] (temporalis) Fluid Accumulation: No significant fluid accumulation Crime Prevention Worker Strength: Measurable reduction in supervisor lime strength Nutrition Assessment: 63 year old man with PMHX: anxiety, chronic pain syndrome, EtOH abuse (multiple admits over the past six months as result), liver cirrhosis, HTN, DMII(A1C=4.7% on 04/02/23); significant surgical history: S/p Laparoscopic cholecystectomy with liver biopsy (01/05/23). Most recently admitted to [facility] 04/02-04/07/23 requesting dextox, noted SHE on admit: 0.352. Currently presents to [facility] with inability to tolerate oral intake, nausea, emesis, and watery stooling. + endorses achy pain throughout his abdomen (which appears to be a chronic issue); of note opioids ceased by pain management ~10 days BILLET GRINDER due to on-going alcohol abuse. On admit, reports drinking two beers BILLET GRINDER. Significant labs on admit: Na+(124), AST(103), ALT(58), Hb(10), Hct(28.5), unremarkable UA and -GI PCR panel. SHE(0.210). Admitted to [facility]; ADM consulted and following, per their assessment: patient stated that shortly after leaving the hospital he relapsed and has been drinking on virtually daily basis since then . Nephrology consulted and following for hyponatremia. Resting in bed at time of visit, reports he was unable to eat this morning- did drink 100% ensure shake. Poor PO since leaving [facility] less than one week ago: I didn t eat when I was at [place], and I didn t eat at home [...] On: Kcal/kg Weight Used for Energy Requirements: [place] Weight for Energy Calculation (kg): 75 kg Total Energy Requirements (kcals/day): 9207-9846 (25-30 kcal/kg IBW) Weight Used for Protein Requirements: [place] Weight in Kg Used for Protein Requirements: 75 kg Estimated Total Protein (g/day): 75-113 (1.0-1.5 g protien/kg IBW) Estimated Daily Total Fluid (ml/day): per MD Nutrition Related Findings: Pranav score=18, +multiple scratches and scabs. No edema noted. +I/O balance. Meds and labs reviewed. +Severe PCM on admit to [facility] earlier in the month Wound Type: [...] 177# 01/28/23) % Weight Change (Calculated): -6.1 [place] Body Weight (lbs) (Calculated): 166 lbs [place] Body Weight (Kg) (Calculated): 75 kg % [place] Body Weight (Calculated): 104.1 % BMI (kg/m2) [...] Nutrition Supplement Mona Gardiner RDN, LDN, Contact: *[phone] [facility] 04-11-2023 Consult note Associated Order (s): [...] (temporalis) Fluid Accumulation: No significant fluid accumulation Crime Prevention Worker Strength: Measurable reduction in supervisor lime strength Nutrition Assessment: 63 year old man with PMHX: anxiety, chronic pain syndrome, EtOH abuse (multiple admits over the past six months as result), liver cirrhosis, HTN, DMII(A1C=4.7% on 04/02/23); significant surgical history: S/p Laparoscopic cholecystectomy with liver biopsy (01/05/23). Most recently admitted to [facility] 04/02-04/07/23 requesting dextox, noted SHE on admit: 0.352. Currently presents to [facility] with inability to tolerate oral intake, nausea, emesis, and watery stooling. + endorses achy pain throughout his abdomen (which appears to be a chronic issue); of note opioids ceased by pain management ~10 days BILLET GRINDER due to on-going alcohol abuse. On admit, reports drinking two beers BILLET GRINDER. Significant labs on admit: Na+(124), AST(103), ALT(58), Hb(10), Hct(28.5), unremarkable UA and -GI PCR panel. SHE(0.210). Admitted to [facility]; ADM consulted and following, per their assessment: patient stated that shortly after leaving the hospital he relapsed and has been drinking on virtually daily basis since then . Nephrology consulted and following for hyponatremia. Resting in bed at time of visit, reports he was unable to eat this morning- did drink 100% ensure shake. Poor PO since leaving [facility] less than one week ago: I didn t eat when I was at [place], and I didn t eat at home [...] On: Kcal/kg Weight Used for Energy Requirements: [place] Weight for Energy Calculation (kg): 75 kg Total Energy Requirements (kcals/day): 7847-7907 (25-30 kcal/kg IBW) Weight Used for Protein Requirements: [place] Weight in Kg Used for Protein Requirements: 75 kg Estimated Total Protein (g/day): 75-113 (1.0-1.5 g protien/kg IBW) Estimated Daily Total Fluid (ml/day): per MD Nutrition Related Findings: Pranav score=18, +multiple scratches and scabs. No edema noted. +I/O balance. Meds and labs reviewed. +Severe PCM on admit to [facility] earlier in the month Wound Type: [...] 177# 01/28/23) % Weight Change (Calculated): -6.1 [place] Body Weight (lbs) (Calculated): 166 lbs [place] Body Weight (Kg) (Calculated): 75 kg % [place] Body Weight (Calculated): 104.1 % BMI (kg/m2) [...] Plan of Care discussed with: MEGGAN weeks, Goals: Goals: Meet at least 75% of [...] Nutrition Supplement Mona Gardiner RDN, LDN, Contact: *[phone] Associated Order(s): IP CONSULT TO ADDICTION MEDICINE Images from the original note were not included. Addiction Medicine Patient: Woody Ni Admit Date: 04/09/2023 Primary Care Physician: Jani Quezada History of Present Illness The patient is a 63-year-old male presenting to [facility] for stabilization of alcohol dependence/withdrawal. Patient is known to chemical dependency services, and was recently detoxified at [facility] from April 03 to April 07. 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 Historical ProviderMD ketoconazole (NIZOral) 2 % shampoo EVERY THREE [...] 4 MG tablet Every 24 hours. Historical ProviderMD oxyCODONE (Roxicodone) 10 MG immediate [...] had made a commitment to follow-up with [facility] virtual program. Hopefully he will return to this program after he is released from the hospital. We will follow FLAVIO SHERMAN MD Addiction Medicine 04/10/2023 at 1:49 PM -55- minutes were spent reviewing the patient's records, evaluating the patient, entering orders, coordinating care with the treatment team, and creating a progress note. Narrative portions of the note are written utilizing TextualAds software. While every effort is made to [...] does not advance care planning documents in [facility] - Kingsley Carl (significant other x 25 years): [phone] - pts goal is to abstain from [...] [facility], [address] --> [phone] - opiates prescribed since 2017 by above - has been on opiates [...] liver cirrhosis, HTN, hyponatremia, chronic pain with assisted prescription opiate use, anxiety, depression, DM who presented to [facility] due to abdominal pain, N/V and [...] syndrome Cirrhosis (HCC) Dehydration 12/22/22-12/26/22 admitted to [facility] Depression Diabetes mellitus (HCC) Gout Hepatitis C Hypertension Hyponatremia Hypothyroidism prison prescription opiate use Nausea and vomiting 12/22/22-12/26/22 admitted at [facility] Pain management Sleep apnea noncompliant with [...] confusion. ROS: See palliative care ROS/ESAS below; Glen Symptom Assessment Score Glen Score Pain Score "High" Tiredness Score 5 Nausea Score 0 Depression Score 0 Anxiety Score 0 Drowsiness Score 0 Anorexia Score (0= eating well, 10= not eating) 0 Wellbeing Score (10= worst sense of well-being) 5 Constipation 0 Dyspnea Score (0= no shortness of breath) 0 Assessed by: patient and provider. 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 during their admission to [facility]. They currently have no uncontrolled symptoms and have established goals of care and we have signed off of their case. The patient has established follow-up with chronic pain management. Associated Order(s): IP CONSULT TO NEPHROLOGY [facility] [...] the last 10 years (of note: in [facility], he followed with surgery and had cholecystectomy/liver biopsy in december of this year - biopsy consistent with liver cirrhosis). Denies issues with UOP. No recent falls. No use of thiazides. Daily smoker +ve. Past Medical History: Past Medical History: Diagnosis Date Acid reflux Alcoholism (CMS/HCC) (HCC) Anxiety Back pain Chronic pain syndrome Cirrhosis (HCC) Dehydration 12/22/22-12/26/22 admitted to [facility] Depression Diabetes mellitus (HCC) Gout Hepatitis C Hypertension Hyponatremia Hypothyroidism prison prescription opiate use Nausea and vomiting 12/22/22-12/26/22 admitted at [facility] Pain management Sleep apnea noncompliant with [...] min Stress: No Stress Concern Present (04/03/2023) [place] [employer] - Occupational Stress Questionnaire [...] any questions or concerns. Ophelia Ramos APRN, INTERPRETER [facility], [facility] [phone] office Associated attestation - Kennedi Pérez MD - 04/10/2023 6:35 PM EDT Seen and examined. Agree with above A and p. Patient established with me outpatient. H/o DENNYS 12/2022 when we saw him, recovered from DENNYS well. Here with hyponatremia, better with IVF. FR and higher protein intake for now. Will follow. documented in this encounter [facility] 04-10-2023 Consult note Associated Order (s): IP CONSULT TO ADDICTION MEDICINE Images from the original note were not included. Addiction Medicine Patient: Woody Ni Admit Date: 04/09/2023 Primary Care Physician: Jani Quezada History of Present Illness The patient is a 63-year-old male presenting to [facility] for stabilization of alcohol dependence/withdrawal. Patient is known to chemical dependency services, and was recently detoxified at [facility] from April 03 to April 07. 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 Hopefully he will return to this program after he is released from the hospital. We will follow FLAVIO SHERMAN MD Addiction Medicine 04/10/2023 at 1:49 PM -55- minutes were spent reviewing the patient's records, evaluating the patient, entering orders, coordinating care with the treatment team, and creating a progress note. Narrative portions of the note are written utilizing TextualAds software. While every effort is made to dictate clearly and proofread, errors in the dictation may still occur. If there are any questions regarding the dictation please do not hesitate to contact the author. T [facility] 04-10-2023 Consult note Associated Order (s): IP CONSULT TO PALLIATIVE CARE Images from the original note were not included. Palliative Care Initial Consult Chief Complaint: Woody Ni is a 63 y.o. male with chief complaint of hyponatremia, abdominal pain Palliative Care provider will follow-up on 04/13/23. Assessment/Plan Goals of Care - FULL - pt does not advance care planning documents in [facility] - Kingsley Carl (significant other x 25 years): [phone] - pts goal is to abstain from Etoh so he can continue to be prescribed oxycodone - he is interested in inpatient ETOH detox - pt is not . Has long time partner Kingsley - no biological children - Father is still living --> in his late 80s - SW consult to assist with HCPOA paperwork Chronic opioid prescription use - follows with [facility], [address] --> [phone] - opiates prescribed since 2016 by above [...] liver cirrhosis, HTN, hyponatremia, chronic pain with assisted prescription opiate use, anxiety, depression, DM who presented to [facility] due to abdominal pain, N/V and [...] syndrome Cirrhosis (HCC) Dehydration 12/22/22-12/26/22 admitted to [facility] Depression Diabetes mellitus (HCC) Gout Hepatitis C Hypertension Hyponatremia Hypothyroidism prison prescription opiate use Nausea and vomiting 12/22/22-12/26/22 admitted at [facility] Pain management Sleep apnea noncompliant with [...] confusion. ROS: See palliative care ROS/ESAS below; Glen Symptom Assessment Score Glen Score Pain Score "High" Tiredness Score 5 Nausea Score 0 Depression Score 0 Anxiety Score 0 Drowsiness Score 0 Anorexia Score (0= eating well, 10= not eating) 0 Wellbeing Score (10= worst sense of well-being) 5 Constipation 0 Dyspnea Score (0= no shortness of breath) 0 Assessed by: patient and provider. 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 during their admission to [facility]. They currently have no uncontrolled symptoms and have established goals of care and we have signed off of their case. The patient has established follow-up with chronic pain management. Kaliki [facility] Work Phone: 04-10-2023 Consult note Associated Order (s): [facility] Consult Note Reason for [...] the last 10 years (of note: in [facility], he followed with surgery and had cholecystectomy/liver biopsy in december of this year - biopsy consistent with liver cirrhosis). Denies issues with UOP. No recent falls. No use of thiazides. Daily smoker +ve. 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 Ophelia Ramos APRN, INTERPRETER [facility], [facility] [phone] office Associated attestation - Kennedi Pérez MD - 04/10/2023 6:35 PM EDT Seen and examined. Agree with above A and p. Patient established with me outpatient. H/o DENNYS 12/2022 when we saw him, recovered from DENNYS well. Here with hyponatremia, better with IVF. FR and higher protein intake for now. Will follow. [facility] 04-10-2023 Note Formatting of this n ote might be different from the original. Care Managment Initial Assessment Date: 04/10/2023 Patient Name: Woody Ni : 1960 Patient Information Source of Information: Patient Cognition/Language: WFL - Within Functional Limits Permission given to speak with patient help desk representative/caregiver as indicated: Yes (Kingsley Carl (Spouse) [phone]) Confirmation of Payer with patient/family: Yes Payer [...] Coverage: Yes Pharmacy Used: [facility] in [place] Medication Management: Independent Transportation/Shopping: Assistance Provider Transportation/Shopping [...] will continue to follow. Monica Scott RN [facility] 04-10-2023 Note Formatting of this n ote might be different from the original. Care Managment Initial Assessment Date: 04/10/2023 Patient Name: Woody Ni : 1960 Patient Information Source of Information: Patient Cognition/Language: WFL - Within Functional Limits Permission given to speak with patient help desk representative/caregiver as indicated: Yes (Kingsley Carl (Spouse) [phone]) Confirmation of Payer with patient/family: Yes Payer [...] Coverage: Yes Pharmacy Used: [facility] in [place] Medication Management: Independent Transportation/Shopping: Assistance Provider Transportation/Shopping [...] will continue to follow. 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 Start thiamine/folate and PRN ativan per [facility] protocol. Consult to addiction med. # Chronic [...] diet, Start thiamine/folate and PRN ativan per [facility] protocol. Consult to addiction med. 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 Start thiamine/folate and PRN ativan per [facility] protocol. Consult to addiction med. # Chronic [...] diet, Start thiamine/folate and PRN ativan per [facility] protocol. Consult to addiction med. Check daily [...] signed by @[email or web address]@ on @TDNR@ at @NOWNR@ documented in this encounter [facility] 04-10-2023 Emergency department Note Report to [facility]. Jere Dooley RN 04/10/23 0702 [facility] 04-10-2023 Emergency department Note Report to [facility] staff. Jere Dooley RN 04/10/23 0702 Jere Dooley RN 04/10/23 0122 Jere Dooley RN 04/10/23 0134 [facility] called for transport to [facility]. ETA of 3 hours. Jere Dooley RN 04/10/23 0044 Pt ambulatory to and from restroom independently. Pt had BM loose stool; specimen collected and sent to lab. Pt again refers to this RN as "babydoll" then states the police matron is "going to come in here and [...] doll" to this RN. Since arrival at [facility] pt has continually been calling staff "baby doll" and other endearing terms and acting inappropriately toward staff. Pt does appear intoxicated as well. forest fire control officer was notified and did speak with pt about addressing staff appropriately. This RN and Norma RN to bedside together for safety. When staff [...] Debora Watts RN 04/09/232056 Emergency Department Encounter [facility] ED Patient: Woody Ni : 1960 Date [...] I discussed with admitting Dr. Barker at [facility], accepts patient for telemetry admission, patient agreeable, stable for admission at this time. DIAGNOSIS: Hyponatremia, alcohol intoxication, transaminitis DISPOSITION: Admission at [facility] PRESCRIPTIONS: New Prescriptions No medications on [...] for clarification. Richie Acosta MD Acute Care [facility] Richie Acosta MD 04/10/23 0240 Patient is here for abdominal pain. He was in the hospital recently for detox and left early for a birthday green party. He states he has not ate [...] and he was supposed to be at [facility]. Patient uncooperative with intake and would not answer questions directly. Call light within reach and blanket given for comfort. documented in this encounter [facility] 04-10-2023 Emergency department Note Jere Dooley RN 04/10/23 0122 Jere Dooley RN 04/10/23 0134 [facility] 04-10-2023 Emergency department Note [facility] for transport to [facility]. ETA of 3 hours. Jere Dooley RN 04/10/23 0044 [facility] 04-09-2023 Emergency department Note Pt ambulatory to and from restroom independently. Pt had BM loose stool; specimen collected and sent to lab. Pt again refers to this RN as "chung" then states the police matron is "going to come in here and beat me up" for saying that. Debora Watts RN 04/09/232221 [facility] 04-09-2023 Note NOTE: This result is for medical treatment only. Analysis performed using non-forensic procedures. [facility] 04-09-2023 Emergency department Note This RN [...] doll" to this RN. Since arrival at [facility] pt has continually been calling staff "baby doll" and other endearing terms and acting inappropriately toward staff. Pt does appear intoxicated as well. forest fire control officer was notified and did speak with pt about addressing staff appropriately. This RN and Norma RN to bedside together for safety. When staff [...] Watts RN 04/09/232052 Debora Watts RN 04/09/232056 [facility] 04-09-2023 Emergency department Triage note Patient is here for abdominal pain. He was in the hospital recently for detox and left early for a birthday green party. He states he has not ate [...] and he was supposed to be at [facility]. Patient uncooperative with intake and would not answer questions directly. Call light within reach and blanket given for comfort. [facility] 04-09-2023 Physician Emergency department Note Emergency Department Encounter [facility] ED Patient: Woody Ni : 1960 Date [...] I discussed with admitting Dr. Barker at [facility], accepts patient for telemetry admission, patient agreeable, stable for admission at this time. DIAGNOSIS: Hyponatremia, alcohol intoxication, transaminitis DISPOSITION: Admission at [facility] PRESCRIPTIONS: New Prescriptions No medications on [...] for clarification. Richie Acosta MD Acute Care [facility] Richie Acosta MD 04/10/23 0240 [facility] 04-09-2023 Telephone encounter Note Called pt and left a VM requesting a callback to get him scheduled for a GI follow up. Callback number provided. [facility] 04-09-2023 Miscellaneous Notes Called pt and [...] and chronic diarrhea documented in this encounter [facility] 04-09-2023 Telephone encounter Note Pt says he saw Dr Valdes in the hosp and was told to contact the office so he could be seen hernando for a follow up. [facility] 04-07-2023 Nurse Note Patient discharge AVS reviewed with patient. Signature obtained. Patient educated on possible overdose due to lower tolerance. Patient understands. Patient denied having any SI/HI/AVH and any pain. 1245- Patient wheeled off unit via wheelchair by transport. [facility] 04-07-2023 Nurse Note Patient discharge AVS [...] pt for safety. documented in this encounter [facility] 04-07-2023 Note Formatting of this n ote might be different from the original. SOFTWARE QUALITY SPECIALIST saw patient to discuss aftercare plans and treatment post discharge. Patient was reminded about virtual intake appointment with [facility] program on 04/08/2023 at 1:30 PM. SOFTWARE QUALITY SPECIALIST explained that agency has sent a link via text messages on his phone. Patient denied current SI/HI/AVH. Patient reported that their son would be picking them up from the hospital and taking them back home. Patient denied needing anything further from [facility] at the time. SOFTWARE QUALITY SPECIALIST informed patient's nurse about conversation. [facility] 04-07-2023 Note Formatting of this n ote might be different from the original. SOFTWARE QUALITY SPECIALIST saw patient to discuss aftercare plans and treatment post discharge. Patient was reminded about virtual intake appointment with [facility] program on 04/08/2023 at 1:30 PM. SOFTWARE QUALITY SPECIALIST explained that agency has sent a link via text messages on his phone. Patient denied current SI/HI/AVH. Patient reported that their son would be picking them up from the hospital and taking them back home. Patient denied needing anything further from SOFTWARE QUALITY SPECIALIST at the time. SOFTWARE QUALITY SPECIALIST informed patient's nurse about conversation. [facility] 04-07-2023 Miscellaneous Notes SOFTWARE QUALITY SPECIALIST saw patient to discuss aftercare plans and treatment post discharge. Patient was reminded about virtual intake appointment with [facility] program on 04/08/2023 at 1:30 PM. SOFTWARE QUALITY SPECIALIST explained that agency has sent a link via text messages on his phone. Patient denied current SI/HI/AVH. Patient reported that their son would be picking them up from the hospital and taking them back home. Patient denied needing anything further from [facility] at the time. SOFTWARE QUALITY SPECIALIST informed patient's nurse about conversation. Problem: Sensory [...] Woody Ni Date of : 1960 MR: [id number] Appearance: Good eye contact Affect: Appropriate Behavior: [...] with concerns or questions. Inder Stein DO GISSELL met with patient who was still agreeable to virtual IOP program with [facility] program. Patient signed MALINI. 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 Patient reports his drink became problematic [...] reports he was stationed 5 miles from [facility] in . Patient reports having an honorable discharge. Family Constellation/Childhood History: Patient reports he is currently living in [place] patient denies have any biological children. Patient reports having 3 stepchildren whom he has help to raise. [place] with his longtime girlfriend. Patient has a previous history of divorce. Patient reports that he has 2 sisters whom he maintains a relationship with. Patient reports that his mother . Patient reports his 86-year-old father currently lives with one of his sisters. Patient reports that he grew up in [facility] by his biological mother and father. Patient denies any history of adolescent childhood trauma or abuse. Education/Work: Patient reports that he graduated high school and shortly after enlisted in the . 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 Patient is currently unemployed and receives SSI/SSD. Cultural/Spirituality/Leisure: Patient denies any cultural needs or concerns at the current time. Patient denies identify any mormonism preference at current time. Patient is not attending services anywhere. Patient reports in his leisure time he enjoys watching [place] [employer] sports and football. Support Systems/Collateral Information: Patient [...] treatment due to transportation issues. Patient and SOFTWARE QUALITY SPECIALIST discussed alternative options in the community that provide virtual assessment and IOP services. Patient is interested in the services and willing to engage in them. SOFTWARE QUALITY SPECIALIST will assist patient with scheduling aftercare appointments. Patient encouraged to engage in activities that are offered and ways in the unit. Patient not report anything additional at current time. Patient encouraged to seek out SOFTWARE QUALITY SPECIALIST unit staff should he identify any [...] provider for clarification. documented in this encounter [facility] 04-07-2023 Hospital course Narrative Physician Discharge Summary Patient ID: Woody Ni [id number] 63 y.o. 1960 Admit date: 04/02/2023 Discharge [...] National Suicide Prevention Hotline if needed at: 7-657-062-IQFC (6280) Please call the following number should you have questions regarding your discharge or aftercare appointments: [address] I spent total time 35 minutes counseling and coordinating care and provided discussion regarding the patient condition, diagnosis, symptoms signs and lab work, and treatment plan and options. Signed: ALBERTO PEREZ MD, MD 04/07/2023 11:11 AM documented in this encounter [facility] 04-07-2023 History of Present illness Narrative [...] detox recommend follow up after discharge per ALEX I spent total time 50 minutes counseling, [...] There is a history of cirrhosis. GI sr risk management consultant did recommend outpatient EGD, colonoscopy and [...] min Stress: No Stress Concern Present (04/03/2023) [employer] [place] [employer] - Occupational Stress Questionnaire [...] syndrome Cirrhosis (HCC) Dehydration 12/22/22-12/26/22 admitted to [facility] Depression Diabetes mellitus (HCC) Gout Hepatitis C Hypertension Hyponatremia Hypothyroidism prison prescription opiate use Nausea and vomiting 12/22/22-12/26/22 admitted at [facility] Pain management Sleep apnea noncompliant with [...] for this patient to transition to the virtual intensive outpatient program at [facility] FLAVIO SHERMAN MD Addiction Medicine 04/05/2023 at 1:32 PM -50-- minutes were spent reviewing the patient's records, evaluating the patient, entering orders, coordinating care with the treatment team, and creating a progress note. Narrative portions of the note are written utilizing [employer] software. While every effort is made to dictate clearly and proofread, errors in the dictation may still occur. If there are any questions regarding the dictation please do not hesitate to contact the author. Images from the original note were not included. [facility] Progress Note 6AM-6PM please message me via [email or web address] Secure Chat. 6PM-6AM please page [facility] Hospitalist - [facility] Underpresser Hand ATT Woody Ni : 1960(63 y.o.) PCP: [...] diarrhea #AGMA -Improved on repeat BMP #HTN -BILLET GRINDER amlodipine, losartan #Hypothyroidism -BILLET GRINDER levothyroxine -TSH wnl DVT Prophylaxis: None Hospital [...] Lying Lying Pulse: [phone] 84 Resp: Temp: 36.7 C (98 F) 36.6 C [...] min Stress: No Stress Concern Present (04/03/2023) [place] [employer] - Occupational Stress Questionnaire [...] syndrome Cirrhosis (HCC) Dehydration 12/22/22-12/26/22 admitted to [facility] Depression Diabetes mellitus (HCC) Gout Hepatitis C Hypertension Hyponatremia 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 While every effort is made to [...] of health problems. Patient presented to the [facility] ER seeking alcohol detox. Alcohol use x40 plus years. Told by MD that he needs detox due to this liver issues and overall health. Was not interested in quitting or detox as recently as 03/10/23. 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 Told another nurse that he drinks 42 [...] to family. Served 4 years in the [employer]. Strengths include health insurance coverage. Barriers include extensive medical history and long history of alcohol use. Recommend that patient be admitted to [address] for inpatient detox. documented in this encounter [facility] 04-07-2023 Nurse Note Patient alert and oreinted during morning assessment. Patient denied having any SI/HI/AVH. Patient complains of 10/10 headache, and nausea. Patient given PRN tylenol at 0923, PRN Zofran at 0924 and PRN Phenergan injection at 0930. Patient encouraged to notify nursing staff of any needs. Will monitor for patient safety. [facility] 04-07-2023 Plan of care note Problem: [...] Goal: Dietary Supplements Outcome: Adequate for Discharge [facility] 04-06-2023 Note Peripheral smear sli de prepared for evaluation. Rachio Work Phone: 04-06-2023 Note Peripheral smear sli de prepared for evaluation. simfy Phone: 04-06-2023 Group counseling note Department: [facility] Topic: Other Group Date: 04/06/2023 [...] Woody Ni Date of : 1960 MR: [id number] Appearance: Good eye contact Affect: Appropriate Behavior: [...] Alcohol withdrawal syndrome without complication (HCC) T [facility] 04-06-2023 Plan of care note The [...] Problem Interventions Goal: Dietary Supplements Outcome: Progressing [facility] 04-06-2023 Nurse Note Pt alert and [...] in condition. Will monitor pt for safety. [facility] 04-06-2023 Telephone encounter Note Pt is recently at hospital. Will send out letter to his mailing address. Thank you [facility] 04-06-2023 Miscellaneous Notes Pt is recently at hospital. Will send out letter to his mailing address. Thank you Please contact patient for hospital follow up for chronic liver disease, history of ETOH abuse and chronic diarrhea documented in this encounter [facility] 04-05-2023 Plan of care note Problem: [...] Goal: Dietary Supplements Outcome: Adequate for Discharge [facility] 04-05-2023 Telephone encounter Note Please contact patient for hospital follow up for chronic liver disease, history of ETOH abuse and chronic diarrhea T [facility] Work Phone: 04-05-2023 Consult note Associated Order [...] Maxwell Hinson MD, 40 mg at 04/05/23 0815 PHENobarbital (Luminal) tablet 64.8 mg, 64.8 mg, [...] Flavio Sherman MD, 100 mg at 04/05/23 0815 traZODone (Desyrel) tablet 100 mg, 100 mg, [...] mellitus (HCC) Gout Hepatitis C Hypertension 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 Reyes) upon discharge from hospital. ZACK VALDES MD Envis Phone: 04-05-2023 Consult note Associated Order (s): [...] worse in the in late 70's early 80s. Lab Results Component Value Date INR 1.1 02/10/2023 INR 1.1 12/29/2022 INR 1.2 (H) 12/25/2022 PROTIME 12.3 (H) 02/10/2023 PROTIME 11.5 12/29/2022 PROTIME 12.6 (H) 12/25/2022 Allergies: Allopurinol, Codeine, and Penicillin g Current Medications: Current Facility-Administered Medications: acetaminophen (Tylenol) tablet 650 mg, 650 mg, Oral, q6h PRN, Maxwell Hisnon MD, 650 mg at 04/04/23 2325 albuterol [...] Maxwell Hinson MD, 100 mg at 04/05/23 08 nitroglycerin (Nitrostat) SL tablet 0.4 mg, 0.4 [...] Flavio Sherman MD, 100 mg at 04/05/23 0815 traZODone (Desyrel) tablet 100 mg, 100 mg, [...] mellitus (HCC) Gout Hepatitis C Hypertension Hypothyroidism prison prescription opiate use Nausea and vomiting Pain [...] min Stress: No Stress Concern Present (04/03/2023) [place] [employer] - Occupational Stress Questionnaire [...] 17:47 Procedure: US ABDOMEN COMPLETE Ordering Provider: BERMUEDZ NISHIT Reason For Exam: Evaluate aorta, right [...] outpatient GI clinic (with his established outpatient [facility] Reyes) upon discharge from hospital. ZACK [...] swallowing liquids- may be beneficial to have TENNIS INSTRUCTOR assess to ensure no swallowing complications. 2. [...] comfort) Fluid Accumulation: No significant fluid accumulation Crime Prevention Worker Strength: Not Performed Nutrition Assessment: pt with PMH significant for anxiety, depression, DM, hypothyroidism, HTN, cirrhosis, alcohol abuse and reflux who presented to [facility] ED on 04/02/23 with request for detox, pt admitted to detoxification unit for treatment of alcohol dependence/withdrawal- BILLET GRINDER was consuming six 24 ounce beers/day, nursing [...] x5 months) % Weight Change (Calculated): -12.1 [place] Body Weight (lbs) (Calculated): 166 lbs [place] Body Weight (Kg) (Calculated): 75 kg % [place] Body Weight (Calculated): 96.4 % BMI (kg/m2) [...] diet Karoline Bajwa RD Contact: available via [employer] chat or *[phone] Associated Order(s): IP CONSULT TO INTERNAL MEDICINE Images from the original note were not included. [facility] Initial Consult Woody Ni [...] well) to confirm this has resolved #HTN -BILLET GRINDER amlodipine, losartan #Hypothyroidism -BILLET GRINDER levothyroxine -TSH ordered DVT Prophylaxis: None Thank [...] Dr. Inder Stein, DO 6PM-6AM please page: [facility] Internal Medicine Subjective: Chief Complaint Patient presents with Alcohol Problem Interval History: Woody Ni is a 63 y.o. male admitted to [facility] for EtOH detox. [facility] consulted for unintentional weight loss. Per chart [...] syndrome Cirrhosis (HCC) Dehydration 12/22/22-12/26/22 admitted to [facility] Depression Diabetes mellitus (HCC) Gout Hepatitis C Hypertension Hyponatremia Hypothyroidism prison prescription opiate use Nausea and vomiting 12/22/22-12/26/22 admitted at [facility] Pain management Sleep apnea noncompliant with [...] min Stress: No Stress Concern Present (04/03/2023) [place] [employer] - Occupational Stress Questionnaire [...] 4 MG tablet Every 24 hours. Historical ProviderMD oxyCODONE (Roxicodone) 10 MG immediate [...] mg by mouth daily. 01/27/22 Historical ProviderMD Review of Systems-Please see HPI, otherwise complete ROS is negative Objective: Vitals: 04/03/23 1116 04/03/23 1712 04/03/23 2330 04/04/23 0637 BP: (!) 148/81 127/76 127/74 (!) 136/101 BP Location: Left arm Right arm Left arm Right arm Patient Position: Lying Lying Lying Lying Pulse: 98 103 86 91 Resp: Temp: 36.4 C (97.6 F) 36.9 C [...] been reviewed. 6AM-6PM please message me via [email or web address] Secure Chat. 6PM-6AM please page [facility] Hospitalist - [facility] Underpresser Hand ATT documented in this encounter [facility] 04-05-2023 Nurse Note Patient alert and oriented during morning assessment. Patient denied having any SI/HI/AVH and pain. Patient med compliant. Patient complains of having indigestion. Patient given PRN Mylanta. Patient ordered breakfast but did not eat; has no appetite. Patient seen by gastroenterology this morning. Patient encouraged to notify nursing staff of any needs. Will monitor for patient safety. [facility] 04-04-2023 Plan of care note Problem: [...] Goal: Dietary Supplements Outcome: Adequate for Discharge [facility] 04-04-2023 Consult note Associated Order (s): [...] swallowing liquids- may be beneficial to have TENNIS INSTRUCTOR assess to ensure no swallowing complications. 2. [...] comfort) Fluid Accumulation: No significant fluid accumulation Crime Prevention Worker Strength: Not Performed Nutrition Assessment: pt with PMH significant for anxiety, depression, DM, hypothyroidism, HTN, cirrhosis, alcohol abuse and reflux who presented to [facility] ED on 04/02/23 with request for detox, pt admitted to detoxification unit for treatment of alcohol dependence/withdrawal- BILLET GRINDER was consuming six 24 ounce beers/day, nursing [...] pt was sitting edge of bed, per [facility] review --> 05/15: 177#, 11/07: 184#, 12/23: [...] Body Weight: 82.6 kg (182 lb) (per [facility] review --> 05/15: 177#, 11/07: 184#, 12/23: 177# bedscale, 02/13: 182# standing scale, 03/10: 172#, pt himself reports UBW of 220# with 60# loss x5 months) % Weight Change (Calculated): -12.1 [place] Body Weight (lbs) (Calculated): 166 lbs [place] Body Weight (Kg) (Calculated): 75 kg % [place] Body Weight (Calculated): 96.4 % BMI (kg/m2) [...] diet Karoline Bajwa RD Contact: available via [employer] or *[id number] [facility] 04-04-2023 Nurse Note Patient alert and [...] given to patient at 1545 for diarrhea. [facility] 04-04-2023 Consult note Associated Order (s): IP CONSULT TO INTERNAL MEDICINE Images from the original note were not included. [facility] Initial Consult Woody Ni [...] well) to confirm this has resolved #HTN -BILLET GRINDER amlodipine, losartan #Hypothyroidism -BILLET GRINDER levothyroxine -TSH ordered DVT Prophylaxis: None Thank [...] Dr. Inder Stein, DO 6PM-6AM please page: [facility] Internal Medicine Subjective: Chief Complaint Patient presents with Alcohol Problem Interval History: Woody Ni is a 63 y.o. male admitted to [facility] for EtOH detox. [facility] consulted for unintentional weight loss. 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 01/27/22 Historical ProviderMD Review of Systems-Please see HPI, otherwise complete ROS is negative Objective: Vitals: 04/03/23 1116 04/03/23 1712 04/03/23 2330 04/04/23 0637 BP: (!) 148/81 127/76 127/74 (!) 136/101 BP Location: Left arm Right arm Left arm Right arm Patient Position: Lying Lying Lying Lying Pulse: 98 103 86 91 Resp: 16 Temp: 36.4 C (97.6 F) 36.9 [...] been reviewed. 6AM-6PM please message me via [email or web address] Secure Chat. 6PM-6AM please page [facility] Hospital[facility] - [facility] Underpresser Hand ATT [facility] 04-04-2023 Plan of care note Problem: Sensory [...] Free from restraint events Outcome: Progressing T [facility] 04-03-2023 Plan of care note Consult acknowledged. Labs and vitals reviewed. The patient will be seen tomorrow with full consult note to follow. Thank you for the opportunity to participate in the care of this patient. Please reach out with concerns or questions. Inder Stein DO [facility] 04-03-2023 History and physical note [facility] Patient: Woody Ni Admit Date: [...] min Stress: No Stress Concern Present (04/03/2023) [place] [employer] - Occupational Stress Questionnaire [...] syndrome Cirrhosis (HCC) Dehydration 12/22/22-12/26/22 admitted to [facility] Depression Diabetes mellitus (HCC) Gout Hepatitis C Hypertension Hyponatremia Hypothyroidism prison prescription opiate use Nausea and vomiting 12/22/22-12/26/22 admitted at [facility] Pain management Sleep apnea noncompliant with [...] SARS-CoV-2 Antigen Negative Negative Blood gas, venous ([place] and Green) Collection Time: 04/02/23 6:08 PM [...] evening. Take before meals. 11/07/22 11/07/23 Beryl oHlder PA-C fluticasone (Flonase) 50 MCG/ACT nasal spray [...] treatment team, and creating a progress note. 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 documented in this encounter [facility] 04-03-2023 Note Formatting of this n ote might be different from the original. SOFTWARE QUALITY SPECIALIST met with patient who was still agreeable to virtual IOP program with [facility] program. Patient signed MALINI. SOFTWARE QUALITY SPECIALIST will send referral information for intake appointment. All information will be included in patient's discharge paperwork. [facility] 04-03-2023 Note Formatting of this n ote might be different from the original. SOFTWARE QUALITY SPECIALIST met with patient who was still agreeable to virtual IOP program with [facility] program. Patient signed MALINI. SOFTWARE QUALITY SPECIALIST will send referral information for intake appointment. All information will be included in patient's discharge paperwork. 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 Patient reports his drink became problematic [...] reports he was stationed 5 miles from [facility] in . Patient reports having an honorable discharge. Family Constellation/Childhood History: Patient reports he is currently living in [place] patient denies have any biological children. Patient reports having 3 stepchildren whom he has help to raise. [place] with his longtime girlfriend. Patient has a previous history of divorce. Patient reports that he has 2 sisters whom he maintains a relationship with. Patient reports that his mother . Patient reports his 86-year-old father currently lives with one of his sisters. Patient reports that he grew up in [place] [facility] [place] by his biological mother and father. Patient denies any history of adolescent childhood trauma or abuse. Education/Work: Patient reports that he graduated high school and shortly after enlisted in the . 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 Patient is currently unemployed and receives SSI/SSD. Cultural/Spirituality/Leisure: Patient denies any cultural needs or concerns at the current time. Patient denies identify any mormonism preference at current time. Patient is not attending services anywhere. Patient reports in his leisure time he enjoys watching [place] [employer] sports and football. Support Systems/Collateral Information: Patient [...] treatment due to transportation issues. Patient and SOFTWARE QUALITY SPECIALIST discussed alternative options in the community that provide virtual assessment and IOP services. Patient is interested in the services and willing to engage in them. SOFTWARE QUALITY SPECIALIST will assist patient with scheduling aftercare appointments. Patient encouraged to engage in activities that are offered and ways in the unit. Patient not report anything additional at current time. Patient encouraged to seek out SOFTWARE QUALITY SPECIALIST unit staff should he identify any [...] to contact the dictating provider for clarification. [facility] 04-03-2023 Note Formatting of this n ote [...] 18 years old and enlisted in the [employer]. Patient reports his drink became problematic within [...] abuse as an adult. Patient is a [employer] . Patient reports having a listed shortly after turning 18 years old. Patient reports he was stationed 5 miles from [facility] in -. Patient reports having an honorable discharge. Family Constellation/Childhood History: Patient reports he is currently living in [place] patient denies have any biological children. Patient reports having 3 stepchildren whom he has help to raise. [place] with his longtime girlfriend. Patient has a previous history of divorce. Patient reports that he has 2 sisters whom he maintains a relationship with. Patient reports that his mother . Patient reports his 86-year-old father currently lives with one of his sisters. Patient reports that he grew up in [place] by his biological mother and father. Patient denies any history of adolescent childhood trauma or abuse. 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 Patient is currently unemployed and receives SSI/SSD. Cultural/Spirituality/Leisure: Patient denies any cultural needs or concerns at the current time. Patient denies identify any mormonism preference at current time. Patient is not attending services anywhere. Patient reports in his leisure time he enjoys watching [place] [employer] sports and football. Support Systems/Collateral Information: Patient [...] treatment due to transportation issues. Patient and SOFTWARE QUALITY SPECIALIST discussed alternative options in the community that provide virtual assessment and IOP services. Patient is interested in the services and willing to engage in them. SOFTWARE QUALITY SPECIALIST will assist patient with scheduling aftercare appointments. Patient encouraged to engage in activities that are offered and ways in the unit. Patient not report anything additional at current time. Patient encouraged to seek out SOFTWARE QUALITY SPECIALIST unit staff should he identify any [...] to contact the dictating provider for clarification. [facility] 04-03-2023 Nurse Note Pt alert and [...] in condition. Will monitor pt for safety. [facility] 04-02-2023 Emergency department Note Patient left with Physician's crew. Ruperto Velazquez RN 04/02/232058 [facility] 04-02-2023 Emergency department Note Patient left with Physician's crew. Ruperto Velazquez RN 04/02/232058 Warm blanket to patient. Ruperto Velazquez RN 04/02/232040 Patient's belongings inventoried by corporate development officer. Ruperto Velazquez RN 04/02/232014 Report to 4E. Ruperto Velazquez RN 04/02/232014 [facility] gave ETA Ruperto Velazquez RN 04/02/231950 Phone to patient. Ruperto Velazquez RN 04/02/231910 Report from dayshift Rns. Pt. Resting, no distress noted. Ruperto Velazquez RN 04/02/231910 Lab called with panic ETOH 0.352. Dr. Bermudez aware Emilee Gonzalez RN 04/02/23 1714 Patient up to bathroom, and [...] Culture. Procedure Abnormality Status --------- ------ Complete Urinalysis[[id number]] Abnormal Final result Please view results for these tests on the individual orders. DRUGS OF ABUSE Medications ordered: Medications lactated ringers bolus 1,000 mL ( IntraVENous Stopped 04/02/23 765) PHENobarbital (Luminal) injection 220 mg (220 mg IntraVENous Given 04/02/23 165) prochlorperazine (Compazine) injection 10 mg (10 mg IntraVENous Given 6/15/23 1654) famotidine (Pepcid) injection 20 mg (20 mg [...] Velazquez RN 04/02/232013 documented in this encounter [facility] 04-02-2023 Emergency department Note Warm blanket to patient. Ruperto Velazquez RN 04/02/232040 [facility] 04-02-2023 Emergency department Note Patient's belongings inventoried by corporate development officer. Ruperto Velazquez RN 04/02/232014 [facility] 04-02-2023 Emergency department Note Report to 4E. Ruperto Velazquez RN 04/02/232014 [facility] 04-02-2023 Emergency department Note [facility] gave ETA Ruperto Velazquez RN 04/02/231950 [facility] 04-02-2023 Emergency department Note Phone to patient. Ruperto Velazquez RN 04/02/231910 [facility] 04-02-2023 Emergency department Note Report from dayshift Rns. Pt. Resting, no distress noted. Ruperto Velazquez RN 04/02/231910 [facility] 04-02-2023 Note NOTE: This result is for medical treatment only. Analysis performed using non-forensic procedures. [facility] 04-02-2023 Emergency department Note Lab called with panic ETOH 0.352. Dr. Bermuedz aware Emilee Gonzalez, MEGGAN 04/02/23 171 [facility] 04-02-2023 Emergency department Note Patient up to bathroom, and back to bed. Ophelia Schultz RN 04/02/23 1641 [facility] 04-02-2023 Emergency department Triage note Pt [...] states he drinks 12-18 beers a day. [facility] 04-02-2023 Physician Emergency department Note EMERGENCY [...] Culture. Procedure Abnormality Status --------- ------ Complete Urinalysis[[id number]] Abnormal Final result Please view results for [...] signed) José Luis Bermudez MD 04/02/231899 [facility] [employer] Work Phone: 04-02-2023 Emergency department Note Report to 4E. Ruperto Velazquez RN 04/02/232013 [facility] 02-17-2023 Miscellaneous Notes Attempt #2 - no answer/no contact S: Patient admitted to: [facility] B: Discharged on :February 14, 2023 A: Hospital follow up call initiated to discuss any medication changes, follow up appointments and discharge instructions: diagnosis: hyponatremia R: No contact x 1 at : [phone] documented in this encounter [facility] 02-17-2023 Telephone encounter Note Attempt #2 - no answer/no contact [facility] 02-16-2023 Telephone encounter Note S: Patient admitted to: [facility] B: Discharged on :February 14, 2023 A: Hospital follow up call initiated to discuss any medication changes, follow up appointments and discharge instructions: diagnosis: hyponatremia R: No contact x 1 at : [phone] [facility] 02-14-2023 History of Present illness Narrative Front wheeled walker brought up to room by nursing supervisor roving department. Homegoing instructions given. Iid discontinued. [facility] [...] any questions or concerns. Ophelia Ramos APRN, INTERPRETER [facility], [facility] [phone] Associated attestation - Kennedi Pérez MD - 02/13/2023 5:16 PM EDT I have reviewed the above assessment and plan with the DIRECTOR OF LEARNING. I agree with above note. Consistently poor [...] lovenox # Anticipated Discharge - Date - 1-2 d - Location - Home with Home Health Care - Pending the following - KACIE BENZ DO 02/13/23 11:11 AM [facility] Progress Note Subjective/ 63 y.o. year old [...] 100 mL/hr, Last Rate: 100 mL/hr (02/10/23 4365) sodium chloride, 100 mL/hr PRN medications: acetaminophen [...] any questions or concerns. Ophelia Ramos APRN, INTERPRETER [facility], [facility] [phone] Associated attestation - Kennedi Pérez MD - 02/12/2023 3:45 PM EDT ,I have reviewed the above assessment and plan with the DIRECTOR OF LEARNING. I agree with above note. Slowly improving sodium levels. More IVF ordered today as listed in DIRECTOR OF LEARNING note. Department of Family Medicine Daily Progress [...] lovenox # Anticipated Discharge - Date - 2 d - Location - Home with Home Health Care - Pending the following - KACIE BENZ DO 02/12/23 7:59 PM Occupational Therapy Facility/Department: [address] Occupational Therapy Initial Evaluation NAME: Woody [...] hyponatremia and is GI/Cdiff rule out. Exam: [facility] Assistance / Modification: SUP-Eliezer for ADLs [...] surgical history that includes Back surgery; Laminectomy; Reynolds tooth extraction; lap,cholecystectomy (historical) (N/A, 01/05/2023); and [...] quad cane Transfer Assistance: Needs assistance Active Inventory Accountant: No Objective Gross Assessment: Yes AROM: Generally [...] flowsheet to accurately assess PO intake adequacy. ordered Ensure Plus High Protein TID which [...] had a decreased appetite for 2 days BILLET GRINDER, but suspect impaired nutrient utilization 2/2 ongoing vomiting/diarrhea. 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 Has desire to eat currently) Average Supplements Intake: None Ordered Anthropometric Measures: Height: 177.8 cm (5' 10") Current Body Weight: 77.6 kg (171 lb) Weight Source: Not Specified Admission Body Weight: 79.4 kg (175 lb) (stated) Usual Body Weight: (177-210#) [place] Body Weight (lbs) (Calculated): 166 lbs [place] Body Weight (Kg) (Calculated): 75 kg % [place] Body Weight (Calculated): 103 % BMI (kg/m2) [...] Oral Nutrition Supplement Kristine George RD Contact: *[phone] or via Secure Chat Physical Therapy Facility/Department: [facility] Physical Therapy Initial Evaluation NAME: Woody Ni [...] PT to increase functional endurance and strength. Rec [facility] PT and assist. Performance Deficits/Impairments: Decreased functional [...] home and uses SPC for mobility. Rec [facility], however patient is declining due [...] surgical history that includes Back surgery; Laminectomy; Reynolds tooth extraction; lap,cholecystectomy (historical) (N/A, 01/05/2023); and [...] quad cane Transfer Assistance: Needs assistance Active Inventory Accountant: No Objective Observation/Palpation Posture: Fair Observation: PIV [...] Krystle Bull PT documented in this encounter [facility] 02-14-2023 Hospital Discharge instructions Lynne Moser RN - 02/14/2023 10:41 AM EDT [place] to chew healthy diet restrict fluid intake documented in this encounter [facility] 02-14-2023 Hospital course Narrative Images from [...] Complexity: follow up within 7-14 calendar days (84561) [] Severe Complexity: follow up within 7 calendar days (62956) FOLLOW UP TESTING, PENDING RESULTS OR REFERRALS AT TRANSITIONAL CARE VISIT: [] Yes [] No PENDING STUDIES: none DISPOSITION: Home FACILITY/HOME CARE AGENCY NAME: Follow up with Kennedi Pérez MD [address] [facility] [address] Follow up Outpatinet labs in 1 [...] 02/14/2023, 9:17 AM documented in this encounter [facility] 02-14-2023 Plan of care note Problem: Potential for Compromised Skin Integrity Goal: Skin Integrity is Maintained or Improved Outcome: Progressing Problem: Urinary Incontinence Goal: Perineal skin integrity is maintained or improved Outcome: Progressing [facility] 02-14-2023 Miscellaneous Notes Problem: Potential for [...] home care services. FWW ordered yesterday per showcase maker request. [facility] notified. Discharge Milestones and Delays [...] No GMLOS Documented .. Received message from [place] showcase maker that patient was requesting FWW. Order obtained [...] did evaluate yesterday and recommended home with [facility]. Patient did refuse yesterday. Will discuss with him again prior to discharge to determine if he has changed his mind. Discharge plan home with [facility] vs home with significant other when [...] of Information: Patient Name/Contact Information: KINGSLEY CARL [phone] SIGNIFICANT OTHER FOR 25 YEARS Cognition/Language: WFL - Within Functional Limits Permission given to speak with patient help desk representative/caregiver as indicated: Yes Confirmation of Payer with patient/family: Yes Payer Name: MEDICARE AND MEDICAID [place]: No Confirmation of Primary Care Physician: Confirmed [...] med consult. . documented in this encounter [facility] 02-13-2023 Note Formatting of this n [...] home care services. FWW ordered yesterday per showcase maker request. [facility] notified. Discharge Milestones and Delays [...] (Days): 3 GMLOS: No GMLOS Documented .. [facility] 02-13-2023 Note Formatting of this n ote [...] home care services. FWW ordered yesterday per [place] showcase maker request. [facility] notified. Discharge Milestones and Delays [...] (Days): 3 GMLOS: No GMLOS Documented .. T [facility] 02-12-2023 Note Formatting of this n ote might be different from the original. Received message from [place] showcase maker that patient was requesting FWW. Order obtained and [facility] liaison notified. [facility] 02-12-2023 Note Formatting of this n ote might be different from the original. Received message from [place] showcase maker that patient was requesting FWW. Order obtained and [facility] liaison notified. T [facility] 02-12-2023 Note Formatting of this n [...] did evaluate yesterday and recommended home with [facility]. Patient did refuse yesterday. Will discuss with him again prior to discharge to determine if he has changed his mind. Discharge plan home with [facility] vs home with significant other when [...] (Days): 2 GMLOS: No GMLOS Documented .. [facility] 02-12-2023 Note Formatting of this n ote [...] did evaluate yesterday and recommended home with [facility]. Patient did refuse yesterday. Will discuss with him again prior to discharge to determine if he has changed his mind. Discharge plan home with [facility] vs home with significant other when [...] (Days): 2 GMLOS: No GMLOS Documented .. [facility] 02-12-2023 Consult note Associated Order (s): Inpatient [...] pain Cirrhosis (HCC) Dehydration 12/22/22-12/26/22 admitted to [facility] Diabetes mellitus (HCC) Gout Hepatitis C Hypertension Hypothyroidism Nausea and vomiting 12/22/22-12/26/22 admitted at [facility] Sleep apnea noncompliant with device PAST [...] evening. Take before meals. 11/07/22 11/07/23 Beryl Hloder PA-C fluticasone (Flonase) 50 MCG/ACT nasal spray [...] Every 24 hours. 06/04/22 02/11/23 Historical Provider, @[email or web address]@ ALLERGIES: Allergies Allergen Reactions Allopurinol Other [...] to contact the dictating provider for clarification.) simfy Phone: 02-12-2023 Consult note Associated Order (s): [...] pain Cirrhosis (HCC) Dehydration 12/22/22-12/26/22 admitted to [facility] Diabetes mellitus (HCC) Gout Hepatitis C Hypertension Hypothyroidism Nausea and vomiting 12/22/22-12/26/22 admitted at [facility] Sleep apnea noncompliant with device PAST [...] mouth in the morning. 03/30/17 Historical ProviderMD predniSONE (Deltasone) 20 MG tablet 01/05/23 Historical [...] clarification.) Associated Order(s): IP CONSULT TO NEPHROLOGY [facility] Consult Note Reason for [...] pain Cirrhosis (HCC) Dehydration 12/22/22-12/26/22 admitted to [facility] Diabetes mellitus (HCC) Gout Hepatitis C Hypertension Hypothyroidism Nausea and vomiting 12/22/22-12/26/22 admitted at [facility] Sleep apnea noncompliant with device Past [...] with any questions or concerns. Ophelia Ramos, SALON STYLIST, INTERPRETER [facility], [facility] [phone] office Associated attestation - Kennedi Pérez MD [...] improved over time. documented in this encounter [facility] 02-11-2023 Note Formatting of this n ote might be different from the original. Care Managment Initial Assessment Date: 02/11/2023 Patient Name: Woody Ni : 1960 Patient Information Source of Information: Patient Name/Contact Information: KINGSLEY CARL [phone] SIGNIFICANT OTHER FOR 25 YEARS Cognition/Language: WFL - Within Functional Limits Permission given to speak with patient help desk representative/caregiver as indicated: Yes Confirmation of Payer with patient/family: Yes Payer Name: MEDICARE AND MEDICAID [place]: No Confirmation of Primary Care Physician: Confirmed [...] other when medically stable.. Lea Gee RN [facility] 02-11-2023 Note Formatting of this n ote might be different from the original. Care Managment Initial Assessment Date: 02/11/2023 Patient Name: Woody Ni : 1960 Patient Information Source of Information: Patient Name/Contact Information: KINGSLEY CARL [phone] SIGNIFICANT OTHER FOR 25 YEARS Cognition/Language: WFL - Within Functional Limits Permission given to speak with patient help desk representative/caregiver as indicated: Yes Confirmation of Payer [...] other when medically stable.. Lea Gee RN [facility] 02-11-2023 Consult note Associated Order (s): IP [...] pain Cirrhosis (HCC) Dehydration 12/22/22-12/26/22 admitted to [facility] Diabetes mellitus (HCC) Gout Hepatitis C Hypertension Hypothyroidism Nausea and vomiting 12/22/22-12/26/22 admitted at [facility] Sleep apnea noncompliant with device Past [...] any questions or concerns. Ophelia Ramos APRN, INTERPRETER [facility], [facility] [phone] office Associated attestation - Kennedi Pérez MD [...] function closely, has slowly improved over time. [facility] 02-11-2023 History and physical note Department [...] pain Cirrhosis (HCC) Dehydration 12/22/22-12/26/22 admitted to [facility] Diabetes mellitus (HCC) Gout Hepatitis C Hypertension Hypothyroidism Nausea and vomiting 12/22/22-12/26/22 admitted at [facility] Sleep apnea noncompliant with device Past [...] levels KACIE BENZ DO 02/11/23 9:20 AM [facility] 02-11-2023 History and physical note Department of [...] pain Cirrhosis (HCC) Dehydration 12/22/22-12/26/22 admitted to [facility] Diabetes mellitus (HCC) Gout Hepatitis C Hypertension Hypothyroidism Nausea and vomiting 12/22/22-12/26/22 admitted at [facility] Sleep apnea noncompliant with device Past [...] 02/11/23 9:20 AM documented in this encounter [facility] 02-11-2023 Note Formatting of this n [...] May benefit from addiction med consult. . [facility] 02-11-2023 Note Formatting of this n [...] May benefit from addiction med consult. . [facility] 02-11-2023 Emergency department Note Ice chips provided. No other needs at this time. Call light at bedside. Adri Parra 02/11/23 0019 [facility] 02-11-2023 Emergency department Note Ice chips provided. No other needs at this time. Call light at bedside. Adri Parra 02/11/23 0019 Per physicans they outsourced to [facility] new ETA will be [phone]. Ophelia Schultz RN 02/10/23 2682 Critical sodium level received from Ashly in lab; sodium is 118, and primary nurse MEGGAN Jacinto notified. Aubree Ratliff RN 02/10/23 2793 Emergency Department Encounter [facility] ED Patient: Woody Ni : 1960 Date [...] pain Cirrhosis (HCC) Dehydration 12/22/22-12/26/22 admitted to [facility] Diabetes mellitus (HCC) Gout Hepatitis C Hypertension Hypothyroidism Nausea and vomiting 12/22/22-12/26/22 admitted at [facility] Sleep apnea noncompliant with device Past [...] nursing notes. Physical Exam ED Triage Vitals [02/10/232] Temp Heart Rate Resp BP 36.5 C [...] orders to display Procedures/EKG: EKG Interpreted in [employer] software by myself SCREENINGS EMERGENCY DEPARTMENT COURSE [...] care at this time. Diagnoses as of 02/11/23 0212 Hyponatremia Alcohol dependence with unspecified alcohol-induced disorder [...] 10 mg (10 mg Oral Given 02/10/23 5050) pantoprazole (ProtoNix) EC tablet 40 mg (has [...] light within reach. documented in this encounter [facility] 02-10-2023 Emergency department Note Per physicans they outsourced to Sergio Lynn new ETA will be [phone]. Ophelia Schultz RN 02/10/23 5236 [facility] 02-10-2023 Emergency department Note Critical sodium level received from Ashly in lab; sodium is 118, and primary nurse MEGGAN Jacinto notified. Aubree Ratliff RN 02/10/23 2246 [facility] 02-10-2023 Emergency department Triage note Patient to room 12 with c/o N/V/D, headache, cough for 2 days. Patient reports testing himself for COVID 2 days ago with negative results. V/S obtained, call light within reach. [facility] 02-10-2023 Physician Emergency department Note Emergency Department Encounter [facility] Patient: Woody Ni : 1960 Date [...] pain Cirrhosis (HCC) Dehydration 12/22/22-12/26/22 admitted to [facility] Diabetes mellitus (HCC) Gout Hepatitis C Hypertension Hypothyroidism Nausea and vomiting 12/22/22-12/26/22 admitted at [facility] Sleep apnea noncompliant with device Past [...] orders to display Procedures/EKG: EKG Interpreted in [employer] software by myself SCREENINGS EMERGENCY DEPARTMENT COURSE and DIFFERENTIAL DIAGNOSIS/MDM: Vitals: Vitals: 02/11/23 0041 02/11/23 0112 02/11/23 0141 02/11/23141 BP: 131/79 126/76 118/85 Pulse: 77 73 [...] 10 mg (10 mg Oral Given 02/10/23 9602) pantoprazole (ProtoNix) EC tablet 40 mg (has [...] infusion (100 mL/hr IntraVENous New Bag 02/10/23 5906) sodium chloride 0.9 % bolus 1,000 mL (0 mL IntraVENous Stopped 02/10/232256) ondansetron (Zofran) injection 4 mg (4 mg [...] DO [employer] Rubén Hoang DO 02/11/23211 [facility] 01-28-2023 History of Present illness Narrative [facility] - Surgery Patient Name: Woody Ni [...] pain Cirrhosis (HCC) Dehydration 12/22/22-12/26/22 admitted to [facility] Diabetes mellitus (HCC) Gout Hepatitis C Hypertension Hypothyroidism Nausea and vomiting 12/22/22-12/26/22 admitted at [facility] Sleep apnea noncompliant with device O: [...] Callaway MD (Gastroenterology) documented in this encounter [facility] 01-12-2023 Telephone encounter Note Called and spoke to Kingsley and gave her the information regarding drainage. She voiced understanding. They have not yet made appt with GI [facility] 01-12-2023 Miscellaneous Notes Called and spoke [...] Name of caller: Kingsley Contact phone number: [phone] Relationship to Patient: spouse Provider: Dr Fang [...] their call: N/A documented in this encounter [facility] 01-12-2023 Telephone encounter Note Patient has ascites from his cirrhotic liver. This is a build up of fluid in his abdomen. He is going to continue to have drainage until wound closes which can take a few weeks. Need to continue to change dressing as needed. Please ask if he made appt with GI. Thanks. [facility] 01-12-2023 Telephone encounter Note Name of caller: Kingsley Contact phone number: [phone] Relationship to Patient: spouse Provider: Dr Fang [...] business hours to return their call: N/A [facility] 01-09-2023 Emergency department Note Pt given chux and dressing supplies to go home with. Instructed to increase Lasix to 40mg Thursday, Thursday and Thursday. Pt and verbalized understanding Emilee Gonzalez RN 01/09/23 1405 [facility] 01-09-2023 Emergency department Note Pt given chux and dressing supplies to go home with. Instructed to increase Lasix to 40mg Thursday, Thursday and Thursday. Pt and verbalized understanding Emilee Gonzalez RN 01/09/23 1405 Waiting for call back from Dr. Fang. [...] Cirrhosis (CMS/HCC) (HCC) Dehydration 12/22/22-12/26/22 admitted to [facility] Diabetes mellitus (HCC) Gout Hepatitis C Hypertension Hypothyroidism Nausea and vomiting 12/22/22-12/26/22 admitted at [facility] Sleep apnea noncompliant with device SURGICAL [...] the abdomen pelvis Discussions with other clinicians: Class [address] Fang directed that this is likely [...] PM PATIENT REFERRED TO: Jani Quezada [address] [facility] [address] Schedule an appointment as soon as possible for a visit [facility] [address] [facility] [address] As needed DISCHARGE MEDICATIONS: New Prescriptions No [...] Emergency Medicine Provider Júnior Lo MD 01/09/23 1354 Pt to ER with complaint of leaking [...] pt shirt wet. documented in this encounter [facility] 01-09-2023 Hospital Discharge instructions Júnior Lo MD - 01/09/2023 1:53 PM EDT Take 40 mg a day of the Lasix Thursday Contact your doctor and Dr. Fang on Thursday to inform them of how you are doing. The following attachments cannot be sent through Care Everywhere.Cirrhosis ([place])documented in this encounter [facility] 01-09-2023 Emergency department Note Waiting for call back from Dr. Fang. Pt and aware Emilee Gonzalez RN 01/09/23 1351 [facility] 01-09-2023 Emergency department Triage note Pt [...] out, bandaid dressing and pt shirt wet. [facility] 01-09-2023 Physician Emergency department Note EMERGENCY [...] Cirrhosis (CMS/HCC) (HCC) Dehydration 12/22/22-12/26/22 admitted to [facility] Diabetes mellitus (HCC) Gout Hepatitis C Hypertension Hypothyroidism Nausea and vomiting 12/22/22-12/26/22 admitted at [facility] Sleep apnea noncompliant with device SURGICAL [...] the abdomen pelvis Discussions with other clinicians: Class [address] Fang directed that this is likely [...] PM PATIENT REFERRED TO: Jani Quezada [address] [facility] [address] [facility] [address] Schedule an appointment as soon as possible for a visit [facility] [address] [facility] [address] As needed DISCHARGE MEDICATIONS: New [...] Emergency Medicine Provider Júnior Lo MD 01/09/23 1353 [facility] Work Phone: 01-05-2023 Note Formatting of this n ote might be different from the original. Images from the original note were not included. [facility] - [facility] Physicians Surgery Patient Name: Woody Ni OPERATIVE NOTE DATE OF PROCEDURE: 01/05/2023 SURGEON: Ruperto Fang MD BUSINESS ADMINISTRATOR: Genna Castro DO PREOPERATIVE DIAGNOSIS: Gallbladder sludge [...] to the recovery room in stable condition. [facility] 01-05-2023 Note Formatting of this n ote might be different from the original. Images from the original note were not included. [facility] - Surgery [facility] Physicians Surgery Patient Name: Woody Ni OPERATIVE NOTE DATE OF PROCEDURE: 01/05/2023 SURGEON: Ruperto Fang MD BUSINESS ADMINISTRATOR: Genna Castro DO PREOPERATIVE DIAGNOSIS: Gallbladder sludge [...] to the recovery room in stable condition. [facility] 01-05-2023 Miscellaneous Notes Images from the original note were not included. [facility] - Surgery [facility] Physicians Surgery Patient Name: Woody Ni OPERATIVE NOTE DATE OF PROCEDURE: 01/05/2023 SURGEON: Ruperto Fang MD BUSINESS ADMINISTRATOR: Genna Castro DO PREOPERATIVE DIAGNOSIS: Gallbladder sludge [...] in stable condition. documented in this encounter [facility] 01-05-2023 Attending History and physical note Images from the original note were not included. [facility] - Surgery [facility] Physicians Surgery Patient Name: Woody Ni [...] Plan lap willow Source Note - Erika Lzaar APRN - INTERPRETER - 12/29/2022 11:30 AM EDT Images from the original note were not included. Comprehensive PreSurgical History and Physical ? Name: Woody Ni : 1960 (Age-62 y.o.) Date of Service: Pt seen/examined on 12/29/2022 Procedure Information Date/Time: 01/05/23 0930 Procedure: LAPAROSCOPIC CHOLECYSTECTOMY, POSSIBLE OPEN (Abdomen) - 90 minutes total Location: [address] Operating Room Surgeons: Ruperto Fang MD Chief Complaint: Other specified disease of gallbladder History Of Present Illness: 62 y.o. male who we are asked to see/evaluate by Dr. Fang for pre-operative evaluation prior to above procedure . ? Denies history of FL, CAD, CHF, TIA, CVA Past Medical History: Past Medical History: No date: Acid reflux No date: Anxiety No date: Back pain No date: Cirrhosis (CMS/HCC) (HCC) No date: Dehydration Comment: 12/22/22-12/26/22 admitted to [facility] No date: Diabetes mellitus (HCC) No date: Gout No date: Hepatitis C No date: Hypertension No date: Hypothyroidism No date: Nausea and vomiting Comment: 12/22/22-12/26/22 admitted at [facility] Past Surgical History: Past Surgical History: [...] mEq by mouth in the morning. 03/30/17 Maxwell ProviderMD pravastatin (Pravachol) 40 MG tablet Take 40 mg by mouth in the morning. 04/30/17 Maxwell ProviderMD tamsulosin (Flomax) 0.4 MG 24 hr capsule Take 0.4 mg by mouth daily. 01/27/22 Historical ProviderMD colchicine 0.6 MG tablet Take 0.6 mg by mouth in the morning and 0.6 mg at noon and 0.6 mg in the evening. 05/16/17 12/25/22 Maxwell ProviderMD levothyroxine (Synthroid, Levoxyl) 75 MCG tablet Every 24 hours. 12/25/22 Maxwell ProviderMD predniSONE (Deltasone) 20 MG tablet TAKE [...] Screen and Sleep Clinic Referral (if appropriate) [facility] 01-05-2023 History and physical note Images from the original note were not included. [facility] - Surgery [facility] Physicians Surgery Patient Name: Woody Ni [...] Source Note - Erika Lazar APRN - INTERPRETER - 12/29/2022 11:30 AM EDT Images from the original note were not included. Comprehensive PreSurgical History and Physical ? Name: Woody Ni : 1960 (Age-62 y.o.) Date of Service: Pt seen/examined on 12/29/2022 Procedure Information Date/Time: 01/05/23 0930 Procedure: LAPAROSCOPIC CHOLECYSTECTOMY, POSSIBLE OPEN (Abdomen) - 90 minutes total Location: [facility] OR [address] [place] [address] Operating Room Surgeons: Ruperto Fang MD Chief Complaint: Other specified disease of gallbladder History Of Present Illness: 62 y.o. male who we are asked to see/evaluate by Dr. Fang for pre-operative evaluation prior to above procedure . ? Denies history of FL, CAD, CHF, TIA, CVA Past Medical History: Past Medical History: No date: Acid reflux No date: Anxiety No date: Back pain No date: Cirrhosis (CMS/HCC) (HCC) No date: Dehydration Comment: 12/22/22-12/26/22 admitted to [facility] No date: Diabetes mellitus (HCC) No date: Gout No date: Hepatitis C No date: Hypertension No date: Hypothyroidism No date: Nausea and vomiting Comment: 12/22/22-12/26/22 admitted at [facility] Past Surgical History: Past Surgical History: [...] 40 mg by mouth daily. 10/14/22 Historical ProviderMD ondansetron ODT (Zofran-ODT) 4 MG disintegrating tablet [...] Referral (if appropriate) documented in this encounter [facility] 01-05-2023 Hospital Discharge instructions Ruperto Fang MD - 01/05/2023 7:34 AM EDT Images from the original note were not included. [facility] - [facility] Physicians Surgery DISCHARGE INSTRUCTIONS FOR DR. FANG Thank you very much for allowing me to participate in your care, it is truly a privilege. Below please see discharge orders that will help you during your recovery. Please do not hesitate to call the office during the day at [phone] for any questions. After hours, the same [...] Fang M.D., F.A.C.S. documented in this encounter [facility] 12-30-2022 Telephone encounter Note Spoke with [...] Oxycodone 10mg as prescribed by pain management. [facility] 12-30-2022 Miscellaneous Notes Spoke with patient's [...] by pain management. documented in this encounter [facility] 12-27-2022 Telephone encounter Note Date/Time patient [...] or compliment? Everyone was great to him. [facility] 12-27-2022 Miscellaneous Notes Date/Time patient contacted: [...] great to him. documented in this encounter [facility] 12-25-2022 Miscellaneous Notes Was following for [...] for the shift include fluids and comfort Computer Processing Scheduler following case for Discharge Needs. Aware PT [...] Limits Permission given to speak with patient help desk representative/caregiver as indicated: Yes Confirmation of Payer [...] Living Prescription Coverage: Yes Pharmacy Used: [facility] Medication Management: Independent Transportation/Shopping: Assistance Provider Transportation/Shopping Assistance Provider Name: Girlfrluz maria Kingsley Transportation Mode: Needs Assistance with Transportation [...] Referral placed in Careport to Home Care. Girlfriend Kingsley will provide transportation home. Alexandra Chaves RN The patient is Moderately Stable - Low risk of patient condition declining or worsening The patient's goals for the shift include The clinical goals for the shift include documented in this encounter [facility] 12-25-2022 Note Formatting of this n ote might be different from the original. Was following for possible HHC services. Both OT and PT therapies have noted that patient has no acute therapy needs at this time. Denies need. Patient to have future elective cholecystectomy later this month. This PACC will sign off this referral. [facility] 12-25-2022 Note Formatting of this n ote might be different from the original. Was following for possible HHC services. Both OT and PT therapies have noted that patient has no acute therapy needs at this time. Denies need. Patient to have future elective cholecystectomy later this month. This PACC will sign off this referral. [facility] 12-25-2022 History of Present illness Narrative GENERAL [...] dry, and intact Data: CBC: Recent Labs 12/22/22184412/23/2233712/24/22335 WBC 4.9 3.1* 2.5* HGB 12.3* 11.3* 11.7* HCT 35.8* 33.8* 34.9* PLT 76* 56* 70* BMP: Recent Labs 12/23/2233712/24/2233512/25/22 0240 NA 128* 129* 131* K 4.3 3.7 4.0 CL 103 101 102 CO2 18* 22 23 BUN 41* 21* 13 CREATININE 5.24* 2.09* 1.36* GLUCOSE 78 89 110* Hepatic: Recent Labs 12/22/22184423 0336 AST 205* 141* ALT 214* 169* [...] and willingness to proceed with plan. Marlyn Jones APRN - INTERPRETER Occupational Therapy Facility/Department: [facility] Occupational Therapy Treatment NAME: Woody Ni : [...] history that includes Back surgery; Laminectomy; and Reynolds tooth extraction. Restrictions Restrictions/Precautions Restrictions/Precautions: General Precautions, [...] Minutes: 12 Minutes (self) Toma Hardwick OT [facility] Progress Note Subjective/ 62 y.o. [...] any questions or concerns. Ophelia Okeefe APRN, INTERPRETER [facility], [facility] [phone] Seen and examined. Agree with above assessment and plan. Cr improving. C/w IVF for one more day. Attending Attestation [facility] - [facility] Physicians Surgery Patient Name: Woody Ni [...] performed. Colin Sánchez MD General Surgery Pager #[phone] Perfect Serve: Colin Sánchez 3:55 PM 12/24/2022 [...] dry, and intact Data: CBC: Recent Labs 12/22/22184412/23/2233712/24/22335 WBC 4.9 3.1* 2.5* HGB 12.3* 11.3* 11.7* HCT 35.8* 33.8* 34.9* PLT 76* 56* 70* BMP: Recent Labs 12/22/22184412/23/22337 12/08/23 0336 NA 124* 128* 129* K 5.1 4.3 3.7 CL 92* 103 101 CO2 22 18* 22 BUN 46* 41* 21* CREATININE 6.62* 5.24* 2.09* GLUCOSE 101* 78 89 Hepatic: Recent Labs 12/22/22 1845 12/24/22 0336 AST 205* 141* ALT 214* 169* [...] DO 12/24/22 8:26 PM Physical Therapy Facility/Department: [facility] Physical Therapy Initial Evaluation NAME: Woody [...] history that includes Back surgery; Laminectomy; and Reynolds tooth extraction. Restrictions Restrictions/Precautions Restrictions/Precautions: General Precautions, [...] Independent (with cane) Transfer Assistance: Independent Active Inventory Accountant: No Patient's Inventory Accountant Info: Objective Observation/Palpation Posture: Fair Observation: forward [...] Inpatient Mobility Raw Score: 24 Mobility Inpatient [facility] G-Code Modifier: CH Goals Eval only Education Education Given To: Patient Education Provided: PT Role, Plan of Care, Energy Conservation, Gait Training Education Method: Verbal Barriers to Learning: None Education Outcome: Verbalized understanding Therapy Time Individual Co-treatment Time In 1537 Time Out 1548 Minutes 11 Krystle Bull PT Occupational Therapy Facility/Department: [address] Occupational Therapy Initial Evaluation NAME: Woody [...] address the above. Recommend planned D/C for [facility] OT with assist PRN. Prognosis: [...] history that includes Back surgery; Laminectomy; and Reynolds tooth extraction. Restrictions Restrictions/Precautions Restrictions/Precautions: General Precautions, [...] Independent (with cane) Transfer Assistance: Independent Active Inventory Accountant: No Patient's Inventory Accountant Info: Objective Gross Assessment: Yes AROM: Generally [...] needed Therapy Time Individual Co-treatment Time In 0816 Time Out 0828 Minutes 12 Maicol Ortiz [...] reports minimal PO intake x few days BILLET GRINDER r/t n&v. Last emesis 12/21 vs 12/22, tolerating CLD well since 12/22) Weight Loss: No significant weight loss Body Fat Loss: No significant body fat loss Muscle Mass Loss: No significant muscle mass loss Fluid Accumulation: No significant fluid accumulation Crime Prevention Worker Strength: Not Performed Nutrition Assessment: 62 y.o. [...] worsening in the past few days--last emesis BILLET GRINDER. States he was unable to keep any PO down for a few days BILLET GRINDER. He reports tolerating CLD well so far. [...] On: Kcal/kg Weight Used for Energy Requirements: [place] Weight for Energy Calculation (kg): 75 kg Total Energy Requirements (kcals/day): 27-30 kcal/kg = 8076-7507 kcal/day Weight Used for Protein Requirements: [place] Weight in Kg Used for Protein Requirements: [...] Weight: 80.5 kg (177 lb 7.5 oz) (3/7 bed) Admission Body Weight: 81.6 kg (179 lb 14.3 oz) (3/6 stated) Usual Body Weight: 81.6 kg (180 lb) (180# stated. Per chart: 11/07/22 184#, 08/28/22 210# (outlier?), 06/05 177#, 05/15 177#) % Weight Change (Calculated): -1.4 [place] Body Weight (lbs) (Calculated): 166 lbs [place] Body Weight (Kg) (Calculated): 75 kg % [place] Body Weight (Calculated): 106.9 % BMI (kg/m2) [...] soon to determine Raya Blandon RD Contact: [phone] documented in this encounter [facility] 12-24-2022 Plan of care note Problem: [...] for the shift include fluids and comfort [facility] 12-23-2022 Note Formatting of this n ote might be different from the original. 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 Aware PT therapy recommending home with assist PRN with no acute PT needs at this time. Will follow and await final discharge plan. Patient is being monitored for possible surgical intervention on this admit. [facility] Kaliki BemDireto 12-23-2022 Note Formatting of this n ote might be different from the original. 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 Aware PT therapy recommending home with assist PRN with no acute PT needs at this time. Will follow and await final discharge plan. Patient is being monitored for possible surgical intervention on this admit. [facility] 12-23-2022 Consult note Associated Order (s): Inpatient [...] mouth in the morning. 04/30/17 Historical ProviderMD predniSONE (Deltasone) 20 MG tablet [...] PLT 76* 56* HEPATIC: Recent Labs 12/22/22 184 AST 205* ALT 214* BILITOT 1.0 ALKPHOS 59 LIPASE/AMYLASE: Recent Labs 12/22/22 1845 LIPASE 111 LACTATE: No lab exists for [...] to contact the dictating provider for clarification.) simfy Phone: 12-23-2022 Consult note Associated Order (s): [...] 1.0 ALKPHOS 59 LIPASE/AMYLASE: Recent Labs 12/22/22 1845 LIPASE 111 LACTATE: No lab exists for component: LACTA BNP: No results for input(s): BNP in the last 72 hours. INR: No results for input(s): INR in the last 72 hours. @RISRSLT@ @IMAGES@ CT abdomen pelvis wo IV contrast Narrative: [facility] 1960 [id number] Exam Date/Time: 12/22/2022 19:41 Procedure: CT ABDOMEN [...] Electronically Signed Date/Time: 12/22/2022 8:01 PM EST @RISRSLT@ IMPRESSION / RECOMMENDATIONS: 1. Hypertension 2. Hypothyroid [...] original note were not included. Attending Attestation [facility] - Surgery [facility] Physicians Surgery Patient Name: Woody Ni [...] performed. Colin Sánchez MD General Surgery Pager #[phone] Perfect Serve: Colin Sánchez 4:56 PM 12/23/2022 [...] tablet Place 4-8 mg under the tongue. 7/28/22 Historical Provider, oxyCODONE (Roxicodone) 10 MG immediate [...] may have. Kacie Ybarra MD Personal Pager [phone] [facility] Surgery Pager [phone] during hours 7:30a-4:30p Thursday-Thursday After hours, please contact physician hadoop application developer. Associated Order(s): IP CONSULT TO NEPHROLOGY [facility] [...] 2/2 losartan given -No acute need for BUILDING ECONOMIST at this time but can still be [...] any questions or concerns. Ophelia Okeefe APRN, INTERPRETER [facility] [phone] office Seen and examined. Agree with above A and P. Severe DENNYS 2/2 ATN, volume depletion. Responding to IVF. Change IVF to LR to address worsening acidosis from NS. No BUILDING ECONOMIST indications, will follow. documented in this encounter [facility] 12-23-2022 Consult note Associated Order (s): IP CONSULT TO GENERAL SURGERY Images from the original note were not included. Attending Attestation [facility] - Surgery [facility] Physicians Surgery Patient Name: Woody Ni [...] performed. Colin Sánchez MD General Surgery Pager #[phone] Perfect Serve: Colin Sánchez 4:56 PM 12/23/2022 [...] mouth in the morning. 04/30/17 Historical ProviderMD predniSONE (Deltasone) 20 MG tablet [...] may have. Kacie Ybarra MD Personal Pager [phone] [facility] Surgery Pager [phone] during hours 7:30a-4:30p Thursday-Thursday After hours, please contact physician hadoop application developer. [facility] 12-23-2022 Consult note Associated Order (s): IP [...] of affect Data: LIVER PROFILE: Recent Labs 12/22/22 1845 AST 205* ALT 214* BILITOT 1.0 ALKPHOS 59 CBC: Recent Labs 12/22/22 1845 12/23/22 0338 WBC 4.9 3.1* RBC 3.66* 3.39* HGB 12.3* 11.3* HCT 35.8* 33.8* MCV 97.8 99.5* RDW 11.9 12.9 PLT 76* 56* BMP: Recent Labs 12/22/22 1845 12/23/22 0338 NA 124* 128* K 5.1 4.3 CL 92* 103 CO2 22 18* BUN 46* 41* CREATININE 6.62* 5.24* BNP: No results for input(s): BNP in the last 72 hours. ABGs: No results found for: PH, PCO2, PO2, HCO3, O2SAT Nephro Labs: Recent Labs 12/22/22 193 COLORU Yellow CLARITYU Clear GLUCOSEU Normal BLOODU [...] 2/2 losartan given -No acute need for BUILDING ECONOMIST at this time but can still be [...] any questions or concerns. Ophelia Okeefe APRN, INTERPRETER [facility], [facility] [phone] office Seen and examined. Agree with above A and P. Severe DENNYS 2/2 ATN, volume depletion. Responding to IVF. Change IVF to LR to address worsening acidosis from NS. No BUILDING ECONOMIST indications, will follow. [facility] 12-23-2022 Note Formatting of this n ote might be different from the original. Care Managment Initial Assessment Date: 12/23/2022 Patient Name: Woody Ni : 1960 Patient Information Source of Information: Patient Cognition/Language: WFL - Within Functional Limits Permission given to speak with patient help desk representative/caregiver as indicated: Yes Confirmation of Payer with patient/family: Yes Payer Name: Medicare [place]: Yes Confirmation of Primary Care Physician: Confirmed [...] Living Prescription Coverage: Yes Pharmacy Used: [facility] Medication Management: Independent Transportation/Shopping: Assistance Provider Transportation/Shopping Assistance Provider Name: Miguel Angel Wynn Transportation Mode: Needs Assistance with Transportation at [...] in [facility] to Home Care. Miguel Angel Wynn will provide transportation home. Alexandra Chaves RN [facility] 12-23-2022 Note Formatting of this n ote might be different from the original. Care Managment Initial Assessment Date: 12/23/2022 Patient Name: Woody Ni : 1960 Patient Information Source of Information: Patient Cognition/Language: WFL - Within Functional Limits Permission given to speak with patient help desk representative/caregiver as indicated: Yes Confirmation of Payer with patient/family: Yes Payer Name: Medicare [place]: Yes Confirmation of Primary Care Physician: Confirmed [...] Living Prescription Coverage: Yes Pharmacy Used: [facility] Medication Management: Independent Transportation/Shopping: Assistance Provider Transportation/Shopping Assistance Provider Name: Miguel Angel Wynn Transportation Mode: Needs Assistance with Transportation at [...] in [facility] to Home Care. Miguel Angel Wynn will provide transportation home. Alexandra Chaves RN [facility] 12-23-2022 History and physical note Department of [...] labs KACIE BENZ DO 12/23/22 8:43 PM [facility] 12-23-2022 History and physical note Department of [...] 12/23/22 8:43 PM documented in this encounter [facility] 12-23-2022 Plan of care note The patient is Moderately Stable - Low risk of patient condition declining or worsening The patient's goals for the shift include The clinical goals for the shift include [facility] 12-23-2022 Emergency department Note Patient ambulated to EMS stretcher without difficulty Josephine Valverde RN 12/23/22 0005 [facility] 12-23-2022 Emergency department Note Patient ambulated [...] skin or sores Josephine Valverde RN 12/22/222355 Warm blankets provided to patient Josephine Valverde RN 12/22/222105 Patient ambulated to restroom with IV pole. No difficulty Josephine Valverde RN 12/22/222038 Patient appears to be in no acute distress. Respirations even and non labored. A&O x3. Bed locked, in low position, and call light within reach. No further needs. Spouse at bedside Josephine Valverde RN 12/22/222035 Patient at bedside with urinal Josephine Valverde RN 12/22/221926 Patient signed out to below 3 V attending. In short this is a 62-year-old [...] to accept patient for telemetry admission at [facility]. Rubén Hoang DO 12/23/22 0015 Patient arrived [...] A&Ox4. at bedside. documented in this encounter [facility] 12-22-2022 Emergency department Note Patient appears to be in no acute distress. Respirations even and non labored. A&O x3. Bed locked, in low position, and call light within reach. No further needs. Skin assessed and no wounds or sores visible. Patient denies having any broken skin or sores Josephine Valverde RN 12/22/222355 [facility] 12-22-2022 Emergency department Note Warm blankets provided to patient Josephine Valverde RN 12/22/222105 [facility] 12-22-2022 Emergency department Note Patient ambulated to restroom with IV pole. No difficulty Josephine Valverde RN 12/22/222038 [facility] 12-22-2022 Emergency department Note Patient appears to be in no acute distress. Respirations even and non labored. A&O x3. Bed locked, in low position, and call light within reach. No further needs. Spouse at bedside Josephine Valverde RN 12/22/222035 [facility] 12-22-2022 Note Questionable circumf erential wall thickening of the rectum, please correlate with clinical concern for colitis. Further evaluation with direct visualization may be obtained as indicated. Splenomegaly. Nonobstructing right renal calculi. Report Dictated on Electronically Signed By: Ryan White Electronically Signed Date/Time: 12/22/2022 8:01 PM [facility] 12-22-2022 Emergency department Note Patient at bedside with urinal Josephine Valverde RN 12/22/221926 [facility] 12-22-2022 Emergency department Triage note Patient arrived [...] past week. Patient is A&Ox4. at bedside. [facility] 12-22-2022 Physician Emergency department Note Patient signed [...] to accept patient for telemetry admission at [facility]. Rubén Hoang DO 12/23/22 0015 [facility] Rach[facility] 12-05-2022 Telephone encounter Note LVM requesting return call to confirm surgical itinerary was received for surgery scheduled 01/05/[address] Fang. [facility] 12-05-2022 Miscellaneous Notes LVM requesting return call to confirm surgical itinerary was received for surgery scheduled 01/05/[address] Fang. LVM asking patient to call back to confirm surgery dates. Name of caller: Kingsley Contact phone number: [phone] Relationship to Patient: spouse/SO Provider: Dr Ruperto [...] 12/16/22 @ 11:00am. documented in this encounter [facility] 11-27-2022 Telephone encounter Note LVM asking patient to call back to confirm surgery dates. [facility] 11-27-2022 Miscellaneous Notes LVM asking patient to call back to confirm surgery dates. Name of caller: Kingsley Contact phone number: [phone] Relationship to Patient: spouse/SO Provider: Dr Ruperto [...] 12/16/22 @ 11:00am. documented in this encounter [facility] 11-26-2022 Telephone encounter Note Name of caller: Kingsley Contact phone number: [phone] Relationship to Patient: spouse/SO Provider: Dr Ruperto [...] business hours to return their call: No [facility] 11-26-2022 Miscellaneous Notes Name of caller: Kingsley Contact phone number: [phone] Relationship to Patient: spouse/SO Provider: Dr Ruperto [...] 12/16/22 @ 11:00am. documented in this encounter [facility] 11-20-2022 Telephone encounter Note LVM for patient to return call to schedule surgery. Offering 12/16/22 @ 11:00am. [facility] 11-20-2022 Miscellaneous Notes LVM for patient to return call to schedule surgery. Offering 12/16/22 @ 11:00am. documented in this encounter [facility] 11-07-2022 History of Present illness Narrative Images from the original note were not included. [facility] - Surgery [facility] Physicians Surgery Patient Name: Woody Ni [...] and no gallstones, however. US 07/08/22 @ [facility] IMPRESSION: Slightly coarsened hepatic echotexture with heterogeneous [...] MD (Gastroenterology) hf documented in this encounter [facility] 07-11-2022 Miscellaneous Notes Called and spoke to Christie. They are going to call [facility] to get setup for the EGD and [...] Munira Staley PA-C documented in this encounter [facility] 07-08-2022 Miscellaneous Notes Order placed, please [...] Munira Staley PA-C documented in this encounter [facility] 07-08-2022 History of Present illness Narrative [...] 2022 9:12 AM documented in this encounter [facility] 06-25-2022 Instructions Munira Staley PA-C - [...] alleviate reflux symptoms. documented in this encounter [facility] 06-25-2022 History of Present illness Narrative [...] (FLONASE) 50 mcg/actuation nasal spray Use 1 [place] in the nose once daily as needed. [...] confirmation of cirrhosis. Has h/o varices from 2015. Per pt EGD from 2021 showed no varices - Check Hep A/B immunity Recommended to please call office/go to ER if fever, chills, chest pain, SOB, diarrhea, nausea, emesis, worsening abdominal pain, dehydration occurs I spent a total of 30 minutes on the date of the service which included preparing to see the patient, qhpa-[id number] patient care, completing clinical documentation, obtaining and/or reviewing separately obtained history, performing a medically appropriate examination, counseling and educating the patient/family/caregiver, ordering medications, tests, or procedures, communicating with other HCPs (not separately reported), independently interpreting results (not separately reported), communicating results to the patient/family/caregiver, and care coordination (not separately reported). Munira Staley PA-C June 25, 2022 3:38 PM documented in this encounter [facility] 06-06-2022 Note Hospitalist Discharg e Summary [...] to diuretic Hyponatremia-likely. [place] Nausea vomiting resolved Saasde-jdymsgi-pgprsrmmdl DENNYS-resolved Hypokalemia Alcohol use disorder Hypertension Hypothyroidism [...] as tolerated Significant labs: CBC: Recent Labs 06/04/2221806/04/22 1243 06/05/22 0523 WBC 2.4* 3.5* 3.4* RBC 2.33* 3.07* 3.21* HGB 8.0* 10.5* 10.9* HCT 23.4* 30.5* 31.7* MCV 100.5* 99.5* 98.7* RDW 13.2 13.3 13.4 PLT 72* 98* 104* BMP: Recent Labs 06/04/22 02106/04/22 1012 06/05/22 0523 06/05/22 1105 06/05/22 1705 [...] Results Component Valu (more content not included)... [facility] 06-06-2022 Hospital course Narrative Images from [...] to diuretic Hyponatremia-likely. [place] Nausea vomiting resolved Jhurvs-mbmeaqi-fszueywvwp DENN[place]-resolved Hypokalemia Alcohol use disorder Hypertension Hypothyroidism [...] this interval not displayed. PT/INR: Recent Labs 06/04/22218 INR 1.3* BNP: No results for input(s): BNP in the last 72 hours. Hgb A1C: Lab Results Component Value Date LABA1C 4.9 06/04/2022 Folate and B12: Lab Results Component Value Date [id number] 725 06/04/2022 , No results found for: [...] Medicine ACCESSION EXAM DATE/TIME PROCEDURE ORDERING PROVIDER [id number] 06/06/2022 12:02 EDT NM Gastric Emptying [id number] -ARTURO ATKINSON Study CPT code 81320 Reason For Exam (NM Gastric Emptying Study) [...] Result Date: 05/15/2022 Patient Name: WOODY NI Computed Tomography ACCESSION EXAM DATE/TIME PROCEDURE ORDERING PROVIDER [id number] 05/15/2022 17:[address] Abdomen/Pelvis (No MD AMADA, HANY Lawson PO, No IV) CPT code 51073 Reason For Exam (CT Abdomen/Pelvis (No PO, [...] Your Medications These medications were sent to [address] [phone] - [phone] [place], [place] [address] folic acid 1 MG tablet levothyroxine 50 [...] made to ensure accuracy; however, inadvertent computerized program director group work errors may be present. documented in this encounter [facility] Phone: 06-05-2022 History of Present illness Narrative Images from the original note were not included. Hospitalist Progress Note 06/05/[id number]: Please page me ([phone]) for patient care issues. [phone]: Please page [facility] night Hospitalist for any [...] not displayed. LIVER PROFILE: Recent Labs 06/04/22 0219 06/04/22 1243 06/05/22 0523 AST 177* 192* 178* ALT 172* 182* 191* BILITOT 0.3 0.4 0.6 ALKPHOS 38 52 58 LABALBU 2.7* 3.6 3.7 PROT 4.7* 5.8* 6.2* PT/INR: Recent Labs 06/04/22 0219 PROTIME 13.8* INR 1.3* CARDIAC ENZYMES: Recent Labs 06/03/22 1850 TROPONINI <0.012 Procalcitonin: No results found for: [...] Daily insulin lispro 0-8 Units SubCUTAneous TID insulin lispro 0-4 Units SubCUTAneous Nightly lidocaine [...] Advance Directive: No Order Discharge planning: TBD Arturo Atkinson MD Division of Hospitalist Medicine Inpatient Medical Services/[facility] PAGER: [phone] CIWA score increasing, orders placed for Ativan [...] ROM Expected Impact [] POA Clarified [] BUILDING ECONOMIST Avoided [] Nursing Function [] Provider Function for [name] [x] Orders Placed [] Symptom Assessment [] Patient Experience [] Patient / Caregiver Conversation Physical Therapy Facility/Department: [facility] Physical Therapy Initial Assessment Name: Woody [...] increase functional independence and safety with mobility. [facility] PT and assist prn. Therapy Prognosis: Good [...] at home due to poor endurance. Rec [facility] upon discharge. Barriers to Learning: [...] and/or treatment were established in collaboration with [employer] Safety Devices Type of Devices: All fall [...] Ambulation Assistance: Independent Transfer Assistance: Independent Active Inventory Accountant: No Patient's Inventory Accountant Info: Christie Mode of Transportation: Car Education: [...] Fair;+ Standing - Dynamic: Fair;- AM-PAC Score AM-[facility] Inpatient Mobility Raw Score : 17 (06/05/22828) [...] Time Individual Concurrent Group Co-treatment Time In 07 Time Out 0759 Minutes 10 Krystle Bull PT Occupational Therapy Facility/Department: [facility] Occupational Therapy Initial Assessment Name: Woody [...] above performance deficits. Recommend planned d/c for [facility] OT with assist PRN. Prognosis: [...] Comments: OK to see per RN c/o 9/10 back pain at this time Social/Functional History [...] Ambulation Assistance: Independent Transfer Assistance: Independent Active Inventory Accountant: No Patient's Inventory Accountant Info: Christie Objective Heart Rate: 95 Heart [...] Education Outcome: Verbalized understanding;Demonstrated understanding AM-PAC Score [facility] Inpatient Daily Activity Raw Score: 19 (06/04/22 1120) AM-[facility] Inpatient ADL T-Scale Score : 40.22 (06/04/22 1120) ADL Inpatient CMS 0-100% Score: 42.8 (06/04/22 1120) ADL Inpatient CMS G-Code Modifier : CK (06/04/22 112) Goals Short Term Goals Time Frame for [...] Time Individual Concurrent Group Co-treatment Time In 919 Time Out 0934 Minutes 14 Maicol Ortiz [...] ROM Expected Impact [] POA Clarified [] BUILDING ECONOMIST Avoided [] Nursing Function [x] Provider Function for [name] [x] Orders Placed [] Symptom Assessment [] Patient Experience [x] Patient / Caregiver Conversation Physical Therapy Facility/Department: [facility] Name: oWody Ni : 1960 Date of Service: 06/04/2022 [...] included. Hospitalist Progress Note 06/04/2022 9:54 AM [phone]: Please perfect serve me for patient care issues. [phone]: Please page [facility] night Hospitalist for any issues. Subjective: Admit [...] of Hospitalist Medicine Inpatient Medical Services PAGER: Dai serve Comprehensive Nutrition Assessment Type and Reason [...] dehydration. Pt reportedly had a syncopal episode BILLET GRINDER with hypotension. EMS reported that pt had [...] Anthropometric Measures: Height: 5' 10" (177.8 cm) [place] Body Weight (IBW): 166 lbs (75 kg) [...] Used for Energy Requirements: Current Energy (kcal/day): 5352-3316 kcals (25-30) Weight Used for Protein Requirements: [...] Continue Oral Nutrition Supplement Kristine George RD, MEGAN Contact: *[phone] documented in this encounter [facility] Work Phone: 05-15-2022 Hospital Discharge instructions Hany Jones MD - 05/15/2022 6:07 PM EDT Drink [...] vomiting Persistent vomiting documented in this encounter [facility] Work Phone: Evaluation note* Diagnosis Abnormal CT scan, [...] liver function study [facility] Diagnosis Hydrops of gallbladder- Primary RUQ pain Abdominal pain, right upper quadrant [facility]* Diagnosis History of hepatitis C Personal history of other infectious and parasitic disease documented in this encounter [facility] note* Diagnosis Ascites due to alcoholic cirrhosis (CMS/HCC) (HCC)- Primary [facility] Encounter for postoperative care- Primary Gallbladder sludge 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) [facility]* Diagnosis Hyponatremia- Primary Hyposmolality and/or hyponatremia Hyponatremia Hyposmolality and/or hyponatremia Alcohol dependence with unspecified alcohol-induced disorder (HCC) Chronic pain syndrome Myalgia Unspecified myalgia and myositis Acute kidney injury (CMS/HCC) (HCC) [facility]* Diagnosis Alcohol withdrawal syndrome without complication (HCC)- Primary Alcohol use disorder Alcohol withdrawal syndrome without complication (HCC) Severe alcohol use disorder (HCC) Severe malnutrition (CMS/HCC) (HCC) Nutritional marasmus documented in this encounter [facility] note* Diagnosis Hyponatremia- Primary Hyposmolality and/or hyponatremia Hyponatremia Hyposmolality and/or hyponatremia [place] (acute kidney injury) (CMS/HCC) (HCC) Severe malnutrition (CMS/HCC) (HCC) Nutritional marasmus [facility]* Diagnosis Hyponatremia- Primary Hyposmolality and/or hyponatremia Hyponatremia Hyposmolality and/or hyponatremia Severe alcohol use disorder (HCC) Severe malnutrition (CMS/HCC) (HCC) Nutritional marasmus Recurrent falls [facility] Diagnosis Alcohol induced acute pancreatitis without necrosis or infection- Primary Alcohol induced acute pancreatitis without necrosis or infection Alcohol use disorder, severe, dependence (HCC) Nausea and vomiting, unspecified vomiting type Chronic pain syndrome Alcohol withdrawal syndrome with complication (HCC) Repeated falls Severe alcohol use disorder (HCC) Moderate malnutrition (CMS/HCC) (HCC) [facility] Diagnosis Severe alcohol use disorder (HCC) [facility] Diagnosis Alcohol withdrawal syndrome without complication (HCC)- Primary Alcohol withdrawal syndrome without complication (HCC) COVID-19 Leg edema Edema Other pancytopenia (CMS/HCC) (HCC) Other pancytopenia Alcoholic cirrhosis of liver without ascites (CMS/HCC) (HCC) 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, recurrent episode, mild Other pancytopenia (CMS/HCC) (HCC) Other pancytopenia [facility] Diagnosis Hyponatremia- Primary Hyposmolality and/or hyponatremia Hyponatremia Hyposmolality and/or hyponatremia Alcoholic intoxication without complication (CMS/HCC) (HCC) Alcohol withdrawal syndrome without complication (HCC) High anion gap metabolic acidosis [facility] Diagnosis Syncope, unspecified syncope type- Primary Elevated lactic acid level [facility]* Diagnosis Alcohol use disorder- Primary Alcohol use disorder [facility]* Diagnosis Metabolic acidosis, increased anion gap- Primary Metabolic acidosis, increased anion gap Ketosis (HCC) Acidosis Alcohol use Other problems related to lifestyle Hypokalemia Hypopotassemia Hypomagnesemia Disorders of magnesium metabolism documented [facility]* Diagnosis Right upper quadrant abdominal pain- Primary Gallbladder sludge Alcoholic cirrhosis of liver without ascites (CMS/HCC) (HCC) documented in this encounter [facility]* Diagnosis Preop examination- Primary Unspecified pre-operative examination Right upper quadrant pain Abdominal pain, right upper quadrant Other specified diseases of gallbladder documented in this encounter [facility]* Diagnosis Acute kidney injury (CMS/HCC) (HCC)- Primary Acute kidney injury (CMS/HCC) (HCC) DENN[place] (acute kidney injury) (CMS/HCC) (HCC) DENNYS (acute kidney injury) (CMS/HCC) (HCC) Right upper quadrant pain Abdominal pain, right upper quadrant Other specified diseases of gallbladder documented in this encounter [facility]* Diagnosis Gallbladder sludge- Primary RUQ pain Abdominal pain, right upper quadrant Right upper quadrant pain Abdominal pain, right upper quadrant Other specified diseases of gallbladder RUQ pain Abdominal pain, right upper quadrant Acute on chronic cholecystitis 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) documented in this encounter [facility]* Diagnosis Onset Date Resolution Status Admit Date Alcohol dependence acute April 192024 1:36am Alcohol intoxication acute May 08, 2025 1:36am Cannabis abuse acute May 08, 2025 1:36am Diarrhea acute May 08 1:36am Hyponatremia acute May 08, 1:36am Thrombocytopenia acute April 1:36am Tobacco abuse acute May 08, 2025 1:36am [facility] Work Phone: Hospital Discharge instructions* Attachments The following attachments cannot be sent through Care Everywhere. * Alcohol Withdrawal Discharge Instructions ([place]) [facility] Attachments The following attachments cannot be sent through Care Everywhere. * Syncope (Fainting) ([place]) documented in this [facility] for referral (narrative)* Outpatient Procedure (Routine) - Pending Review Specialty Diagnoses / Procedures Referred By Magalie lawson Referred To Contact [facility] Diagnoses Abnormal CT scan, stomach History of esophageal varices Procedures EGD DIAGNOSTIC ESOPHAGOGASTRODUODENOS COPY TRANSORAL DIAGNOSTIC Munira Staley PA-C [address] [place] [address] [facility] [address] [place] [address] Referral ID Status Reason Start Date Expiration Date Visits Requested Visits Authorized [id number] Pending Review Auto-Generat ed Referral 06/25/2022 06/25/2023 1 1 * Diagnostic Procedure Only (Routine) - Pending Review Specialty Diagnoses / Procedures Referred By Magalie lawson Referred To Contact [facility] Diagnoses History of hepatitis C Procedures US ABD RT UPPER QUADRANT US ABDOMINAL REAL TIME W/IMAGE LIMITED Munira Staley PA-C [address] [place] [address] [facility] Referral ID Status Reason Start Date Expiration Date Visits Requested Visits Authorized [id number] Pending Review Auto-Generat ed Referral 06/25/2022 07/25/2023 1 1 [facility] for referral (narrative)* Diagnostic Procedure Only (Routine) - Closed Specialty Diagnoses / Procedures Referred By Magalie lawson Referred To Contact [facility] Diagnoses History of hepatitis C Procedures US ABD RT UPPER QUADRANT US ABDOMINAL REAL TIME W/IMAGE LIMITED Munira Staley PA-C [address] [place] [address] [facility] Referral ID Status Reason Start Date Expiration Date V isits Requested Visits Authorized [id number] Closed Auto-Generate d Referral 06/25/2022 07/25/2023 1 1 [facility] for referral (narrative)No reason for referral information [facility] Work Phone: Summary Purpose Family History Relationship Condition Age at Onset Recorded Date/T sue father Malignant neoplasm of prostate Unknown History of four vess el coronary artery bypass graft Unknown Myocardial infarction Unknown Advance Directives Date Activated Date Inactivated Comments 07/23/2024 4:49 AM 08/01/2024 3:14 PM Date Activated Date Inactivated Comments 07/10/2024 4:49 PM 07/21/2024 3:52 PM Date Activated Date Inactivated Comments 07/05/2024 1:35 AM 07/10/2024 3:58 PM Date Activated Date Inactivated Comments 04/22/2024 10:46 PM 04/30/2024 5:39 PM Date Activated Date Inactivated Comments 01/15/2024 6:43 PM 01/26/2024 7:33 PM Documents on File Type Date Recorded 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 Yes May 07, 2025 11:12pm Discharge Instructions * Instructions* Mack Palacios PA-C [...] Referral Specialty Diagnoses / Procedures Referred By Magalie t Referred To Contact General Surgery Diagnoses Hydrops of gallbladder RUQ pain Procedures CONSULT TO GENERAL SURGERY OFFICE/OUTPATIENT [facility] 60-74 MINUTES Munira Staley PA-C [address] [place] [address] Referral ID Status Reason Start Date Expiration Date Visits Requested Visits Authorized [id number] Authorized PCP Requested Referral 07/08/2022 07/08/2023 1 1 Specialty Diagnoses / Procedures Referred By Contnazanin t Referred To Contact Ced Okeefe [facility] [facility] [address] [address] Referral ID Status Reason Start Date Expiration Date Visits Re quested Visits Authorized [id number] Closed 1 1 Specialty Diagnoses / Procedures Referred By Contnazanin t Referred To Contact Genna Castro DO [address] [place] [id number] Referral ID Status Reason Start Date Expiration Date Visits Re quested Visits Authorized [id number] Closed 1 1 Chief Complaint and Reason for Visit Chief Complaint Admit Date ACUTE ETOH INTOXICATION, HYPONATREMIA AN D DIARRHEA May 08, 2025 1:36am Reason for Visit Admit Date Alcohol dependence May 08, 2025 1:36 am Alcohol intoxication May 08, 2025 1:3 6am Cannabis abuse May 08, 2025 1:36 am Diarrhea May 08, 2025 1:36 am Hyponatremia May 08, 2025 1:36 am Thrombocytopenia May 08, 2025 1:36 am Tobacco abuse May 08, 2025 1:36 am Additional Source Comments (unrecognized sect ion and content) No Status Records FoundNo Status Records FoundNo Status Records FoundNo Status Records FoundNo Status Records FoundNo Status Records FoundNo Status Records Found INFORMATION SOURCE (unrecogn ized section and content) DATE CREATED AUTHOR 04/14/2018 [facility] DATE CREATED AUTHOR AUTHOR'S ORGANIZ ATION 07/16/2022 [facility] DATE CREATED AUTHOR AUTHOR'S ORGANIZ ATION 10/25/2023 [facility] DATE CREATED AUTHOR AUTHOR'S ORGANIZ ATION 12/30/2023 [facility] DATE CREATED AUTHOR AUTHOR'S ORGANIZ ATION 04/20/2024 [facility] DATE CREATED AUTHOR AUTHOR'S ORGANIZ ATION 06/23/2024 [facility] DATE CREATED AUTHOR AUTHOR'S ORGANIZ ATION 12/18/2024 [facility] Reason for Visit (unrecogniz ed section and [...] Vomiting Gas, stomach upset. EGD 05/06/22 at [facility] Reason Comments Results Reason Comments Radiology US Specialty Diagnoses / Procedures Referred By Magalie t Referred To Contact US IMAGING Diagnoses History of hepatitis C Procedures US ABD RT UPPER QUADRANT US ABDOMINAL REAL TIME W/IMAGE LIMITED Munira Staley PA-C [address] [place] [address] Us Imaging Referral ID Status Reason Start Date Expiration Date V isits Requested Visits Authorized [id number] Closed Auto-Generate d Referral 06/25/2022 07/25/2023 1 1 Reason Comments Results Reason Comments Post-op Problem Leaking fluid from i ncision site Reason Comments Post-op ALS 2 WK POST-OP LAP SHU POSS OPEN Reason Comments Vomiting Diarrhea Specialty Diagnoses / Procedures Referred By Contac t Referred To Contact Diagnoses Hyponatremia Alcohol dependence with unspecified alcohol-induced disorder (HCC) Procedures . Kacie Benz DO [address] [place] [address] [facility] 2e Telemetry [address] [place] [address] Referral ID Status Reason Start Date Expiration Date Visits Re quested Visits Authorized [id number] 1 1 Reason Onset Date Comments Hospital Follow-up 02/16/2023 Reason Onset Date Comments Hospital Follow-up 04/05/2023 Reason Comments Alcohol Problem Specialty Diagnoses / Procedures Referred By Contac t Referred To Contact Diagnoses Alcohol withdrawal syndrome without complication (HCC) Alcohol use disorder Procedures . Maxwell Hinson MD [address] [facility] [address] [place] [address] [facility] 4e Detox [address] [place] [address] Referral ID Status Reason Start Date Expiration Date Visits Re quested Visits Authorized [id number] 1 1 Reason Comments Abdominal Pain Specialty Diagnoses / Procedures Referred By Contac t Referred To Contact Diagnoses Hyponatremia Procedures E87.1 Rhiannon Barker MD [facility] [facility] [address] [place] [address] [facility] [address]e Telemetry [address] [place] [phone] Referral ID Status Reason Start Date Expiration Date Visits Re quested Visits Authorized [id number] 1 1 Reason Onset Date Comments Cancelled Appointment 05/26/2023 05/26/2023 at 08;00 Reason Onset Date Comments Advice Only 01/12/2023 Reason Comments Fall Specialty Diagnoses / Procedures Referred By Contac t Referred To Contact Diagnoses Hyponatremia Procedures . Kacie Benz DO [address] [place] [address] [facility] Emergency Dept [address] [place] [address] Referral ID Status Reason Start Date Expiration Date Visits Re quested Visits Authorized [id number] 1 1 Reason Comments Vomiting Pt comes to the ed t [facility] due to vomiting pts family states he is a heavy drinker pt is positive ETOH aprox 18 beers pt states he would like to speak to someone about resources to quit drinking pt is nauseous in triage. Specialty Diagnoses / Procedures Referred By Contnazanin t Referred To Contact Diagnoses Alcohol induced acute pancreatitis without necrosis or infection Procedures . Kacie Benz, DO [address] [place] [address] [facility] Emergency Dept [address] [place] [address] Referral ID Status Reason Start Date Expiration Date Visits Re quested Visits Authorized [id number] 1 1 Reason Comments Vomiting Withdrawal Alcohol Specialty Diagnoses / Procedures Referred By Contac t Referred To Contact Diagnoses Alcohol withdrawal syndrome without complication (HCC) Procedures .. Hayes Scott MD [address] [place] [address] [facility] Emergency Dept [address] [place] [address] Referral ID Status Reason Start Date Expiration Date Visits Re quested Visits Authorized [id number] 1 1 Reason Onset Date Comments Med [...] use disorder Procedures - Kiel King MD [address] [place] [address] [facility] 4s Msu [address] [place] [address] Referral ID Status Reason Start Date Expiration Date Visits Re quested Visits Authorized [id number] 1 1 Reason Comments Dizziness Vomiting Alcohol Problem Specialty Diagnoses / Procedures Referred By Contac t Referred To Contact Diagnoses Ketosis (HCC) Alcohol use Metabolic acidosis, increased anion gap Procedures . 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 Reason Onset Date Comments Surgery Scheduling 11/20/2022 Reason Comments Vomiting Specialty Diagnoses / Procedures Referred By Contac t Referred To Contact Diagnoses DENNYS (acute kidney injury) (CMS/HCC) (HCC) Acute kidney injury (CMS/HCC) (HCC) Procedures N17.9 Kacie Benz, DO [address] [place] [address] [facility] 4s Telemetry [address] [place] [address] Referral ID Status Reason Start Date Expiration Date Visits Re quested Visits Authorized [id number] 1 1 Reason Onset Date Comments Hospital Follow-up 12/27/2022 Specialty Diagnoses / Procedures Referred By Contac t Referred To Contact Diagnoses Right upper quadrant pain Other specified diseases of gallbladder Right upper quadrant pain [R10.11] Other specified diseases of gallbladder [K82.8] Procedures [place] LAPAROSCOPY SURG CHOLECYSTECTOMY LAPAROSCOPIC CHOLECYSTECTOMY, POSSIBLE OPEN Ruperto Fang MD [address] [facility] [address] [place] [address] [address] [place] [address] Referral ID Status Reason Start Date Expiration Date Visits Re quested Visits Authorized [id number] 1 1 Reason Onset Date Comments Sinusitis [...] hour of each other unless specifically ordered. 1716 (Given - Provid er: Emilee Gonzalez RN) ondansetron (ZOFRAN) injection 4 mg (COMPLETED) 4 mg, IntraVENous, ONCE, 1 dose, On Mariela 05/15/22 at 1710 1717 (Given - Provid er: Emilee Gonzalez, MEGGAN) sodium chloride flush 0.9 % injection 3 mL(Linked Group 1) 3 mL, IntraVENous, EVERY 8 HOURS, First dose on Mariela 05/15/22 at 1710, Until Discontinued, Flush line with 3-5 mL 1723 (Given - Provid er: Emilee Gonzalez, MEGGAN) Linked Groups Order Group 1: Saline lock [...] Other - Comment: ok to hold per [facility])1236 (Held by provider - Provider: LEAH [...] Mahajan RN) 1207 (Given - Provider: Debora Pat, MEGGAN) cloNIDine (CATAPRES) tablet 0.1 mg 0.1 mg, Oral, 2 TIMES DAILY, First dose on Thu06/05/22 at 1830, Until Discontinued 2030 (Given - Provider: Monica Gonzalez LPN) 1206 (Given - Provider: Debora Pat, MEGGAN)2100 (Due) colchicine (COLCRYS) tablet 0.6 mg 0.6 [...] Over 349 4 Units and notify physician 2107 (Not Given - Provider: Monica Gonzalez LPN [...] Pat RN)1700 (Due - Provider: Yazmin Bermudez [facility]) pantoprazole (PROTONIX) tablet 40 mg 40 mg, [...] 2104 (Given - Provider: Monica Gonzalez LPN) 203 (Given - Provider: Monica Gonzalez LPN) 2100 [...] mL/lumen 0759 (Given - Provider: Gibran Mahajan RN)210 (Given - Provider: Monica Gonzalez LPN) 0817 (Given - Provider: Gibran Mahajan RN)203 (Given - Provider: Monica Gonzalez LPN) 0914 [...] 0816 (Given - Provider: Gibran Mahajan RN) 1206 (Given - Provider: Debora Pat, RN) Continuous Medication Order 06/04/2022 06/05/2022 06/06/2022 0.9 % sodium chloride infusion (CANCELED) IntraVENous, at 150 mL/hr, CONTINUOUS, Starting on Thu06/04/22 at 0130 0112 (New Bag - Provider: Sarina Pulido, MEGGAN)0435 (Stopped - Provider: Sarina Pulido, RN) PRN Medication Order 06/04/2022 06/05/2022 06/06/2022 [...] (See Alternative - Provider: Gibran Mahajan RN) 1 (See Alternative - Provider: Monica Gonzalez LPN)120 [...] (See Alternative - Provider: Gibran Mahajan RN) 1 (See Alternative - Provider: Monica Gonzalez LPN)120 (See Alternative - Provider: Debora Pat RN) LORazepam (ATIVAN) injection 3 mg(Linked Group 1) 3 mg, IntraVENous, EVERY 1 HOUR PRN (WITHDRAWAL), Starting on Mariela 8/ at 1021, Until Discontinued, Withdrawal, For alcohol withdrawal., For CIWA score 16 to 20. If both oral and intravenous CIWA medications ordered, use intravenous if unable to tolerate oral equivalent. Reassess CIWA one hour after each dose of medication and as needed. 1815 (See Alternative - Provider: Gibran Mahajan RN) 1 (See Alternative - Provider: Monica Gonzalez LPN)120 (See Alternative - Provider: Debora Pat RN) LORazepam (ATIVAN) injection 4 mg(Linked Group 1) 4 mg, IntraVENous, EVERY 1 HOUR PRN (WITHDRAWAL), Starting on Mariela 818/22 at 1021, Until Discontinued, Withdrawal, For alcohol withdrawal., For CIWA score greater than 20. If both oral and intravenous CIWA medications ordered, use intravenous if unable to tolerate oral equivalent. Reassess CIWA one hour after each dose of medication and as needed. 1815 (See Alternative - Provider: Gibran Mahajan RN) 1 (See Alternative - Provider: Monica Gonzalez LPN)120 [...] 1815 (Given - Provider: Gibran Mahajan RN) 1 (Given - Provider: Monica Gonzalez LPN)120 (Given - Provider: Debora Pat RN) LORazepam (ATIVAN) tablet 2 mg(Linked Group 1) 2 mg, Oral, EVERY 1 HOUR PRN (WITHDRAWAL), Starting on Thu06/05/22 at 1021, Until Discontinued, For alcohol withdrawal., For CIWA score 11 to 15. Reassess CIWA one hour after each dose of medication and as needed. 1815 (See Alternative - Provider: Gibran Mahajan RN) 1 (See Alternative - Provider: Monica Gonzalez LPN)1203 (See Alternative - Provider: Debora Pat RN) LORazepam (ATIVAN) tablet 3 mg(Linked Group 1) 3 mg, Oral, EVERY 1 HOUR PRN (WITHDRAWAL), Starting on Thu06/05/22 at 1021, Until Discontinued, For alcohol withdrawal., For CIWA score 16 to 20. Reassess CIWA one hour after each dose of medication and as needed. 1815 (See Alternative - Provider: Gibran Mahajan RN) 1 (See Alternative - Provider: Monica Gonzalez LPN)1203 (See Alternative - Provider: Debora Pat RN) LORazepam (ATIVAN) tablet 4 mg(Linked Group 1) 4 mg, Oral, EVERY 1 HOUR PRN (WITHDRAWAL), Starting on Thu06/05/22 at 1021, Until Discontinued, For alcohol withdrawal., For CIWA score greater than 20. Reassess CIWA one hour after each dose of medication and as needed. 1815 (See Alternative - Provider: Gibran Mahajan RN) 1 (See Alternative - Provider: Monica Gonzalez LPN)1203 (See Alternative - Provider: Debora Pat RN) [...] 0236, Until Thu06/05/22 at 1753, Nausea, Vomiting 2105 (Given - [...] after dose. 0654 (Given - Provider: Viviana Kirk RN) 0624 (Given - Provider: Cuco Cancino RN) 0732 (Given - Provider: Thanh Hayes, RN) losartan (Cozaar) tablet 100 mg 100 mg, Oral, Daily, First dose on Thu02/11/23 at 0900, [employer] approved therapeutic substitution for olmesartan 0833 (Given - Provider: Melinda Nixon RN) 0917 (Given - Provider: Melinda Nixon RN) 0807 (Given - Provider: Lynne Moser, MEGGAN) oxyCODONE (Roxicodone) immediate release tablet 10 mg 10 mg, Oral, 3 times daily, First dose on Thu02/10/23 at 2320 0834 (Given - Provider: Melinda Nixon RN)1325 (Given - Provider: Melinda Nixon RN)2002 (Given - Provider: Cuco Cancino RN) 0918 (Given - Provider: Melinda Nixon RN)1628 (Given - Provider: Melinda Nixon, MEGGAN)2126 (Given - Provider: Cuco Cancino RN) 0739 (Given - Provider: Thanh Hayes, MEGGAN)1400 (Canceled Entry - Provider: Automatic Discharge Provider - Comment: Automatically canceled at discontinue of medication order) pantoprazole (ProtoNix) EC tablet 40 mg 40 mg, Oral, Daily, First dose on Thu02/11/23 at 0900, Do not crush, chew, or split. 0834 (Given - Provider: Melinda Nixon RN) 0917 (Given - Provider: Melinda Nixon RN) 0807 (Given - Provider: Lynne Moser RN) potassium chloride CR (Klor-Con M10) ER [...] 0807 (Given - Provider: Lynne Moser, RN) sodium chloride tablet 1 g 1 g, Oral, 2 times daily with meals, First dose on Thu02/13/23 at 1700 1628 (Given - Provider: Melinda Nixon RN) 0806 (Given - Provider: Lynne Moser, RN) tamsulosin (Flomax) 24 hr capsule 0.4 mg 0.4 mg, Oral, Daily, First dose on Thu02/11/23 at 0900, Do not crush, chew, or split. 0833 (Given - Provider: Melinda Nixon RN) 0918 (Given - Provider: Melinda Nixon RN) 0806 (Given - Provider: Lynne Moser, RN) Continuous Medication Order 02/12/2023 02/13/2023 02/14/2023 [...] Damon RN) 0541 (Given - Provider: Radha Man RN)1024 (Given - Provider: Melissa De Luna RN)1557 (Given - Provider: Melissa De Luna RN) 0623 (Given - Provider: Radha Man RN)1106 (Given - Provider: Shakila Damon, MEGGAN) folic acid (Folvite) tablet 1 mg 1 mg, Oral, Daily, First dose on Thu04/03/23 at 1800 0814 (Given - Provider: Shakila Damon RN) 0834 (Given - Provider: Melissa De Luna, MEGGAN) 0923 (Given - Provider: Shakila Damon, MEGGAN) [...] 0922 (Given - Provider: Shakila Damon RN) oxyCODONE (Roxicodone) immediate release tablet 10 [...] Luna, MEGGAN) 0922 (Given - Provider: Shakila Damon, MEGGAN) [...] hours, First dose (after last modification) on 04/06/23 at 1245, OK to HOLD or DELAY [...] 0834 (Given - Provider: Melissa De Luna RN)1600 (Given - Provider: Melissa De Luna, MEGGAN) 0923 (Given - Provider: Shakila Damon RN) tamsulosin (Flomax) 24 hr capsule 0.4 mg 0.4 mg, Oral, Daily, First dose on Thu04/03/23 at 1000, Do not crush, chew, or split. 0814 (Given - Provider: Shakila Damon RN) 0835 (Given - Provider: Melissa De Luna, RN) 0923 (Given - Provider: Shakila Damon RN) therapeutic multivitamin-minerals (Theragran-M) tablet 1 tablet, Oral, Daily, First dose on Mariela 04/02/23 at 1940 0814 (Given - Provider: Shakila [...] headaches, fever, severe pain 7-10, Starting on Mariela 04/02/23 at 1935 1442 (Given - Provider: Shakila Damon RN)2105 (Given - Provider: Radha Man, MEGGAN) 0546 (Given - Provider: Radha Man, MEGGAN)1239 (Given - Provider: Melissa De Luna RN) 0258 (Given - Provider: Radha Man, MEGGAN)0923 (Given - Provider: Shakila Damon RN) albuterol [...] Man RN)1442 (Given - Provider: Shakila Damon RN)210 (Given - Provider: Radha Man RN) 0546 (Given - Provider: Radha Man RN)1205 (Given - Provider: Melissa De Luna RN)211 (Given - Provider: Radha Man RN) loperamide (Imodium) capsule 2 mg 2 mg, Oral, 4 times daily PRN, diarrhea, Starting on Thu04/02/23 at 1935, After each loose stool 1612 (Given - Provider: Shakila Damon RN)210 (Given - Provider: Radha Man RN) 0539 [...] Radha Man RN)0924 (Given - Provider: Shakila Damon, MEGGAN) promethazine (Phenergan) injection 25 mg 25 mg, IntraMUSCular, Every 6 hours PRN, nausea, vomiting, 2nd line treatment for nausea, Starting on 04/06/23 at 1200, Only to be given as IM injection. 1629 (Given - Provider: Melissa De Luna RN) 0930 (Given - Provider: Shakila Damon, MEGGAN - Comment: Per Dr. Perez; give with ondansetron.) traZODone (Desyrel) tablet 100 mg 100 mg, Oral, Nightly PRN, sleep, Starting on Mariela 04/02/23 at 1935 2352 (Given - Provider: Radha Man RN) 2112 (Given - Provider: Radha Man RN) Scheduled Medication Order 04/13/2023 04/14/2023 04/15/2023 amLODIPine [...] Lea Kim RN)1125 (Given - Provider: Lea Kim, RN) famotidine (Pepcid) tablet 20 mg 20 mg, Oral, 2 times daily, First dose on Thu04/13/23 at 1345 1400 (Given - Provider: West Long RN)1944 (Given - Provider: Anna James RN) 0806 (Given - Provider: West Long RN)203 (Given - Provider: Anny Patel RN) 0845 (Given - Provider: Lea Kim, RN) folic acid (Folvite) tablet 1 mg [...] Viviana Kirk RN) 0554 (Given - Provider: Anan James RN) 0507 (Given - Provider: Anny [...] Long RN - Comment: removed by patient) 0806 (Medication Applied - Provider: West Long RN [...] Long RN) 0845 (Given - Provider: Lea Kim RN) tamsulosin (Flomax) 24 hr capsule 0.4 mg 0.4 mg, Oral, Daily, First dose on Thu04/10/23 at 1045, Do not crush, chew, or split. 0815 (Given - Provider: West Long RN) 0806 (Given - Provider: West Long RN) 0843 (Given - Provider: Lea Kim RN) Thiamine Mononitrate (Vitamin B1) tablet 100 mg 100 mg, Oral, Daily, First dose on Thu04/10/23 at 1045 0815 (Given - Provider: West Long RN) 0807 (Given - Provider: West Long RN) 0844 (Given - Provider: Lea Kim, RN) Continuous Medication Order 04/13/2023 04/14/2023 04/15/2023 [...] Anny Patel RN)1122 (Given - Provider: Lea Kim, RN) ondansetron ODT (Zofran-ODT) disintegrating tablet 4 [...] Patel RN)1122 (See Alternative - Provider: Lea Kim RN) oxyCODONE (Roxicodone) immediate release tablet 5 [...] Anny Patel RN)0843 (Given - Provider: Lea Kim, MEGGAN) polyethylene [...] Leonora Contreras RN)1126 (Given - Provider: Leonora Contreras, MEGGAN)1725 (Given - Provider: Carina Charles RN) 0856 (Given - Provider: Lea Kim RN)1209 (Given - Provider: Lea Kim, MEGGAN)1606 (Given - Provider: Lea Kim, MEGGAN) 0603 (Given - Provider: Anastacia Rome, MEGGAN)1114 (Given - Provider: Lea Kim RN)1600 (Canceled Entry - Provider: Automatic Discharge [...] at 2110 0857 (Given - Provider: Leonora Contreras, MEGGAN)2032 (Given - Provider: Thaddeus Castillo RN) 0854 (Given - Provider: Lea Kim RN)2057 (Given - Provider: Anastacia Rome, MEGGAN) 0825 (Given - Provider: Lea Kim, RN) folic acid (Folvite) tablet 1 mg 1 mg, Oral, Daily, First dose on Thu07/01/23 at 0900 0857 (Given - Provider: Leonora Contreras RN) 0855 (Given - Provider: Lea Kim, MEGGAN) 0825 (Given - Provider: Lea Kim RN) influenza vac subunit quadrivalent (Flucelvax) injection 0.5 mL 0.5 mL, IntraMUSCular, Prior to discharge, Starting on Thu07/01/23 at 0900, For 1 dose ipratropium-albuterol (Duo-Neb) 0.5-2.5 mg/3 mL nebulizer solution 3 mL 3 mL, Nebulization, 2 times daily, First dose (after last modification) on Thu07/02/23 at 0800 0900 (Given - Provider: Sally Sanders RCP)2000 (Canceled Entry - Provider: Automatic Discharge Provider - Comment: Automatically canceled at discontinue of medication order) 0800 (Canceled Entry - Provider: Automatic Discharge Provider - Comment: Automatically canceled at discontinue of medication order)2040 (Given - Provider: Lakshmi Toro RCP) 0952 [...] after dose. 0519 (Given - Provider: Leonora Leon, RN) 0548 (Given - Provider: Thaddeus Castillo, MEGGAN) 0600 (Given - Provider: Anastacia Rome, MEGGAN) losartan (Cozaar) tablet 100 mg 100 mg, Oral, Daily, First dose on Thu07/01/23 at 0900 0857 (Given - Provider: Leonora Contreras, MEGGAN) 0855 (Given - Provider: Lea Kim RN) [...] RN) 0108 (Given - Provider: Thaddeus Castillo RN)0855 (Given - Provider: Lea Kim, MEGGAN) PHENobarbital (Luminal) tablet 64.8 mg (CANCELED) 64.8 mg, Oral, Every 4 hours, First dose on Thu06/30/23 at 2110, OK to HOLD if overly sedated 0040 (Given - Provider: Lea Mcneil RN)0519 (Given - Provider: Leonora Leon RN)0857 (Given - Provider: Leonora Contreras, MEGGAN) potassium [...] (38 C), Starting on Thu06/30/23 at 2108, Administer if oral route cannot [...] at 0534 0548 (Given - Provider: Thaddeus Castillo, MEGGAN) fluticasone (Flonase) nasal spray 1 spray 1 [...] needed. 2057 (Given - Provider: Anastacia Rome, MEGGAN) ondansetron (Zofran) injection 4 mg(Linked Group 2) [...] 040 (Given - Provider: Thaddeus Castillo RN) 0446 (Given - Provider: Anastacia Rome, MEGGAN) ondansetron ODT (Zofran-ODT) disintegrating tablet 4 mg(Linked Group 2) 4 mg, Oral, Every 8 hours PRN, nausea, vomiting, Starting on Thu06/30/23 at 2109, 1st Line. If inadequate response within 60 minutes, proceed to next-line agent or contact provider if no further options ordered. Patient should allow tablet to dissolve on tongue. Do not remove from blister pack until just before administering. 0627 (See Alternative - Provider: Leonora Leon RN) [...] Lea Kim, MEGGAN)1732 (Given - Provider: Lea Kim, MEGGAN)2321 (Given - Provider: Anastacia Rome, MEGGAN) 0603 (Given - Provider: Anastacia Rome, MEGGAN)1114 (Given - Provider: Lea Kim RN) polyethylene [...] at 2138 2212 (Given - Provider: Anastacia Rome, MEGGAN) Linked Groups Order Group 1: acetaminophen (Tylenol) [...] Anders RN) 0927 (Given - Provider: Mónica Anders, MEGGAN) dicyclomine (Bentyl) capsule 20 mg 20 mg, Oral, 3 times daily before meals, First dose on Thu10/20/23 at 2200 0620 (Given - Provider: Daniel Weinstein RN)1047 (Given - Provider: Erika Fowler RN)1617 (Given - Provider: Erika Fowler, MEGGAN) 0608 (Given - Provider: Daniel Weinstein RN)1122 (Given - Provider: Mónica Anders RN)1625 (Given - Provider: Mónica Anders RN) 0552 (Given - Provider: Daniel Weinstein RN)1206 (Given - Provider: Mónica Anders RN) folic acid (Folvite) tablet 1 mg [...] times daily before meals, First dose on Mariela 10/22/23 at 1600, Do not crush, chew, or [...] Fowler RN) 0251 (New Bag - Provider: aDniel Weinstein RN)1000 (Stopped - Provider: Mónica Anders RN) PRN [...] (38 C), Starting on Thu10/20/23 at 2154, Maximum dose of acetaminophen is 4000 mg from all sources in 24 hours. albuterol 108 (90 Base) MCG/ACT inhaler 1 puff 1 puff, Inhalation, Every 4 hours PRN, shortness of breath, wheezing, Starting on Thu10/20/23 at 2154 hydrALAZINE (Apresoline) injection 10 mg 10 mg, IntraVENous, Every 4 hours PRN, high blood pressure, >150, Starting on Thu10/21/23 at 0906 0355 (Given - Provider: Daneil Weinstein RN) loperamide (Imodium) capsule 2 mg 2 mg, Oral, 4 times daily PRN, diarrhea, Starting on Thu10/22/23 at 1200, After each loose stool 1925 (Given - Provider: Daniel Weinstein RN) LORazepam (Ativan) injection 1 mg(Linked Group 3) 1 mg, IntraVENous, Every 1 hour PRN, withdrawal, For alcohol withdrawal, Starting on Thu10/20/23 at 2154, For CIWA score 8 to 10. If both oral and intravenous CIWA medications ordered, use intravenous if unable to tolerate oral equivalent. Reassess CIWA one hour after each dose of medication and as needed. For IV doses dilute dose with 1ml NS. 0258 (Given - Provider: Daniel Weinstein RN)1503 (See Alternative - Provider: Erika Fowler RN)1926 (See Alternative - Provider: aDniel Weinstein RN)2047 (See Alternative - Provider: Daniel [...] Weinstein RN)1206 (See Alternative - Provider: Mónica Anders, MEGGAN) LORazepam (Ativan) tablet 1 mg(Linked Group 3) 1 mg, Oral, Every 1 hour PRN, other, For alcohol withdrawal, Starting on Thu10/20/23 at 2154, For CIWA score 8 to 10. Reassess CIWA one hour after each dose of medication and as needed. 0258 (See Alternative - Provider: Daniel Weinstein RN)1503 (Given - Provider: Erika Fowler RN)1926 (Given - Provider: Daniel Weinstein RN)204 (Given - Provider: Daniel Weinstein RN) 0020 [...] RN)1503 (See Alternative - Provider: Erika Fowler RN)192 (See Alternative - Provider: Daniel Weinstein RN)2046 (See Alternative - Provider: Daniel Weinstein RN) [...] Daniel Weinstein RN)1146 (Given - Provider: Erika Fowler RN)1617 (Given - Provider: Erika Fowler RN)2038 (Given - Provider: Daniel Weinstein RN) 0115 (Given - Provider: Daniel Weinstein RN) naloxone (Narcan) injection 0.4 mg 0.4 mg, IntraVENous, Every 5 min PRN, opioid reversal, respiratory depression, Starting on Thu10/21/23 at 0909, +++ For RR <10, pinpoint pupils, over sedation for opioid reversal - MUST notify hadoop application developer provider immediately after first dose, may give [...] Mónica Anders RN)1529 (Given - Provider: Mónica Anders, RN)2134 (Given - Provider: Daniel Weinstein RN) [...] (38 C), Starting on Thu10/20/23 at 2154, Maximum dose of acetaminophen is 4000 mg [...] 2154, For CIWA score 8 to 10. If [...] at 1930 0852 (Given - Provider: Raya Zavala, MEGGAN) 0957 (Given - Provider: Monica Simons RN) 0830 (Given - Provider: Dedra Raymundo, MEGGAN) levothyroxine (Synthroid, Levoxyl) tablet 75 mcg 75 mcg, Oral, Daily before breakfast, First dose on Thu01/21/24 at 0600, Tube feeding (TF) interaction, obtain physician order to manage, recommend holding TF for 30 minutes before and after dose. 0530 (Given - Provider: Ary Evans RN) 0646 (Given - Provider: Ary Evans, MEGGAN) 0621 (Given - Provider: Tiny Yang, MEGGAN) losartan (Cozaar) tablet 100 mg 100 mg, Oral, Daily, First dose on Thu01/20/24 at 1745 0852 (Given - Provider: Raya Zavala RN) 0957 (Given - Provider: Monica Simons RN) 0830 (Given - Provider: Dedra Raymundo RN) magnesium chloride EC tablet 64 mg [...] Patient/family refused) 1013 (Given - Provider: Monica Simons, MEGGAN)213 (Given - Provider: Tiny Yang, MEGGAN) 0900 (Not Given - Provider: Dedra Raymundo RN - Reason: Patient/family refused) mirtazapine (Remeron) tablet 15 mg 15 mg, Oral, Nightly, First dose on Thu01/22/24 at 2100 2030 (Given - Provider: Ary Evans RN) 2131 (Given - Provider: Tiny Yang, MEGGAN) nystatin (Mycostatin) cream (CANCELED) Topical, 2 times daily, First dose on Thu01/15/24 at 2100 0853 (Given - Provider: Raya Zavala RN)2030 (Given - Provider: Ary Evans, RN) 0900 (Not Given - Provider: Monica Simons RN - Reason: Patient/family refused) pantoprazole (ProtoNix) EC tablet 40 mg 40 mg, Oral, 2 times daily, First dose on Thu01/24/24 at 1245, Do not crush, chew, or split. 1301 (Given - Provider: Raya Zavala RN) 0607 (Given - Provider: Ary Evans, MEGGAN)1503 (Given - Provider: Monica Simons RN) 0621 (Given - Provider: Tiny Yang RN)1422 (Given - Provider: Dedra Raymundo, MEGGAN) sodium chloride tablet 1 g 1 g, Oral, 2 times daily with meals, First dose on Thu01/20/24 at 1745 0851 (Given - Provider: Raya Zavala RN)1702 (Given - Provider: Raya Zavala RN) 0958 (Given - Provider: Monica Simons, MEGGAN)1826 (Given - Provider: Monica Simons, MEGGAN) 0831 (Given - Provider: Dedra Raymundo, MEGGAN)1700 (Canceled Entry - Provider: Automatic Discharge Provider - Comment: Automatically canceled at discontinue of medication order) tamsulosin (Flomax) 24 hr capsule 0.4 mg 0.4 mg, Oral, Daily, First dose on Thu01/20/24 at 1745, Do not crush, chew, or split. 0852 (Given - Provider: Raya Zavala RN) 0957 (Given - Provider: Monica Simons, MEGGAN) 0830 (Given - Provider: Dedra Raymundo, MEGGAN) [...] Monica Simons RN)2131 (Given - Provider: Tiny Yang RN) 0830 (Given - Provider: Dedra Raymundo RN)1422 (Given - Provider: Dedra Raymundo RN) PRN [...] 010 (See Alternative - Provider: Ary Evans RN)1241 (See Alternative - Provider: Poornima Ortiz RN)1859 (See Alternative - Provider: Monica Simons RN) 0921 (See Alternative - Provider: Dedra Raymundo RN) acetaminophen (Tylenol) tablet 650 mg(Linked Group 1) 650 mg, Oral, Every 6 hours PRN, mild pain (1-3), fever, For temp greater than 100.4 F (38 C), Starting on Thu01/15/24 at 1842, Maximum dose of acetaminophen is 4000 mg from all sources in 24 hours. 0049 (Given - Provider: Ary Evans RN)0528 (Given - Provider: Ary Evans RN)1131 (Given - Provider: Raya Zavala RN)2030 (Given - Provider: Ary Evans RN) 010 (Given - Provider: Ary Evans RN)1241 (Given - Provider: Poornima Ortiz RN)1859 (Given - Provider: Monica Simons RN) 0921 (Given - Provider: Dedra Raymundo RN) calcium carbonate (Tums) chewable tablet 500 mg 500 mg, Oral, PRN, indigestion, heartburn, Starting on Mariela 01/21/24 at 2148 0049 (Given - Provider: Ary Evans RN)0851 (Given - Provider: Raya Zavala RN)2030 (Given - Provider: Ary Evans RN) 1008 (Given - Provider: Monica Simons RN)1242 (Given - Provider: Poornima Ortiz RN)1649 (Given - Provider: Monica Simons RN) 1156 (Given - Provider: Dedra Raymundo RN) diphenhydrAMINE (BENADryl) tablet/capsule 50 mg 50 mg, Oral, Every 6 hours PRN, itching, Starting on Mariela 01/21/24 at 1555 0049 (Given - Provider: Ary Evans RN)0855 (Given - Provider: Raya Zavala RN)1702 (Given - Provider: Raya Zavala RN) 0104 (Given - Provider: Ary Evans RN)1241 (Given - Provider: Poornima Ortiz RN)2317 (Given - Provider: Tiny Yang RN) 0621 (Given - Provider: Tiny Yang RN)1252 (Given - Provider: Dedra Raymundo RN) diphenhydrAMINE-zinc acetate (BENADryl) cream Topical, 3 times daily PRN, itching, Starting on Mariela 01/21/24 at 2307 1852 (Given - Provider: Raya Zavala RN) 1012 (Given - Provider: Monica Simons RN)2133 (Given - Provider: Tiny Yang RN) hydrOXYzine pamoate (Vistaril) capsule 25 mg 25 mg, Oral, Every 8 hours PRN, anxiety, Starting on Mariela 01/21/24 at 1555 0259 (Given - Provider: Ary Evans RN)1131 (Given - Provider: Raya Zavala RN)2030 (Given - Provider: Ary Evans RN) 0607 (Given - Provider: Ary Evans RN)1503 (Given - Provider: Monica Labut, RN) 0202 (Given - Provider: Tiny Yang [...] Evans, RN) 1052 (Given - Provider: Monica Simons RN) melatonin tablet 5 mg 5 mg, Oral, Nightly PRN, sleep, Starting on Mariela 01/21/24 at 2028 2132 (Given - Provider: Tiny Yang, MEGGAN) ondansetron (Zofran) injection 4 mg(Linked Group 2) 4 mg, IntraVENous, Every 6 hours PRN, nausea, vomiting, Starting on Thu01/15/24 at 1842, 1st Line. Give IV if patient is unable to take orally. If inadequate response within 60 minutes, proceed to next-line agent or contact provider if no further options ordered. 1301 (See Alternative - Provider: Raya Zavala RN) 1011 (See Alternative - Provider: Monica Simons, MEGGAN) ondansetron ODT (Zofran-ODT) disintegrating tablet 4 mg(Linked [...] before administering. 1301 (Given - Provider: Raya Zavala RN) 1011 (Given - Provider: Monica Simons RN) polyethylene glycol (PEG) 3350 (Miralax) packet 17 g 17 g, Oral, Daily PRN, constipation, Starting on 3/29/24 at 1842, 1st line for treatment of [...] MEGGAN)1520 (See Alternative - Provider: Dedra Raymundo, MEGGAN) promethazine (Phenergan) suppository 25 mg(Linked Group 3) 25 mg, Rectal, Every 12 hours PRN, nausea, vomiting, Starting on Thu01/19/24 at 1255, Give WV if patient is unable to take orally. 0528 (See Alternative - Provider: Ary Evans RN)1850 (See Alternative - Provider: Raya Zavala RN) 1504 (See Alternative - Provider: Monica Simons RN) 0922 (See Alternative - Provider: Dedra Raymundo, MEGGAN)1520 (See Alternative - Provider: Dedra Raymundo, MEGGAN) promethazine (Phenergan) tablet 25 mg(Linked Group 3) 25 mg, Oral, Every 6 hours PRN, nausea, vomiting, Starting on Thu01/19/24 at 1255 0528 (Given - Provider: Ary Evans RN)1850 (Given - Provider: Raya Zavala RN) 150 (Given - Provider: Monica Simons RN) 0922 [...] at 1718 0049 (Given - Provider: Ary Evans, MEGGAN)0851 (Given - Provider: Raya Zavala, MEGGAN)1702 (Given - Provider: Raya Zavala, RN) 0104 (Given - Provider: Ary Evans, MEGGAN)1008 (Not Given - Provider: Monica Simons RN - Reason: Other)2318 (Given - Provider: Tiny Yang RN) 0922 (Given - Provider: Dedra Raymundo, RN)1520 (Given - Provider: Dedra Raymundo RN) Linked [...] vomiting, Starting on Thu01/19/24 at 1255, Give WV if patient is unable to take orally. [...] Starting on Thu03/09/24 at 1015 1030 ([facility] ider: Anna Ramey RN)1407 (Stopped - Provider: [...] - Provider: Anna Ramey RN) LORazepam (Ativan) injection 2 mg(Linked Group [...] Provider: Anna Ramey, RN) LORazepam (Ativan) tablet 2 mg(Linked Group [...] Provider: Anna Ramey, RN) LORazepam (Ativan) tablet 3 mg(Linked Group [...] each dose of medication and as needed. 2343 (See Alternative - Provider: Monica Hernandez RN) 0102 (See Alternative - Provider: Monica Hernandez, RN)0950 (See Alternative - Provider: Anna Ramey [...] Topical, 2 times daily, First dose on Mariela 04/28/24 at 1330, Apply to affected area 1625 (Given - Provider: Haydee Beard LPN)2113 (Given - Provider: Joanna Lopez RN) 0848 (Given - Provider: Haydee Beard LPN)1958 (Given - Provider: José Luis Mckeon RN) 0740 (Given - Provider: Jonny Johnson, MEGGAN)0900 (Canceled Entry - Provider: Jonny Johnson RN) folic acid (Folvite) tablet 1 mg 1 mg, Oral, Daily, First dose (after last modification) on Thu04/22/24 at 2140 0840 (Given - Provider: Haydee Beard LPN) 0848 (Given - Provider: Haydee Beard LPN) 0926 (Given - Provider: Jonny Johnson RN) levothyroxine (Synthroid, Levoxyl) tablet 75 mcg 75 mcg, Oral, Daily before breakfast, First dose on 04/23/24 at 0600, Tube feeding (TF) interaction, obtain physician order to manage, recommend holding TF for 30 minutes before and after dose. 0426 (Given - Provider: Joanna Lopez RN) 0441 (Given - Provider: Joanna Lopez RN) 0550 (Given - Provider: José Luis Mckeon, MEGGAN) losartan (Cozaar) tablet 100 mg 100 mg, Oral, Daily, First dose on Thu04/23/24 at 0900 0840 (Given - Provider: Haydee Beard LPN) 0848 (Given - Provider: Haydee Beard LPN) 0926 (Given - Provider: Jonny Johnson, MEGGAN) mirtazapine (Remeron) tablet 15 mg 15 mg, Oral, Nightly, First dose on Thu04/22/24 at 2300 2113 (Given - Provider: Joanna Lopez RN) 1956 (Given - Provider: José Luis Mckeon, MEGGAN) pantoprazole (ProtoNix) EC tablet 40 mg 40 mg, Oral, 2 times daily before meals, First dose on Thu04/23/24 at 0700, Do not crush, chew, or [...] (after last modification) on Thu04/28/24 at 1800 1802 (Given - Provider: Haydee Beard LPN) 0205 (Given - Provider: Joanna Lopez RN)1050 (Given - Provider: Haydee Beard LPN)1724 (Given - Provider: Haydee Beard LPN) 0205 (Given - Provider: José Luis Mckeon RN) PHENobarbital tablet 64.8 mg (CANCELED) 64.8 mg, [...] 0926 (Given - Provider: Jonny Johnson RN) tamsulosin (Flomax) 24 hr capsule 0.4 [...] 0426 (See Alternative - Provider: Joanna Lopez RN)2328 (See Alternative - Provider: Joanna Lopez RN) 1954 (See Alternative - Provider: José Luis Mckeon, MEGGAN) 0740 (See Alternative - Provider: Jonny Johnson, MEGGAN) acetaminophen (Tylenol) tablet 650 mg(Linked Group 1) 650 mg, Oral, Every 6 hours PRN, mild pain (1-3), fever, For temp greater than 100.4 F (38 C), Starting on Thu04/22/24 at 2246, Maximum dose of acetaminophen is 4000 mg from all sources in 24 hours. 6 (Given - Provider: Joanna Lopez RN)2328 (Given - Provider: Joanna Lopez RN) 1954 (Given - Provider: José Luis Mckeon RN) 0740 (Given - Provider: Jonny Johnson, MEGGAN) albuterol 108 (90 Base) MCG/ACT inhaler 2 [...] 6 hours PRN, itching, anxiety, Starting on Mariela 04/28/24 at 1833 2113 (Given - Provider: Joanna Lopez RN) 0443 (Given - Provider: Joanna Lopez RN)1050 (Given - Provider: Haydee Beard LPN)1724 (Given - Provider: Haydee Beard LPN) 0008 (Given - Provider: José Luis Mckeon RN)0554 (Given - Provider: José Luis Mckeon RN)1151 (Given - Provider: Jonny Johnson RN) ondansetron [...] Joanna Lopez RN)1513 (Given - Provider: Morteza Hollis RN) ondansetron ODT (Zofran-ODT) disintegrating tablet 4 [...] before administering. 0430 (Given - Provider: Joanna Lopez, MEGGAN)1513 (See Alternative - Provider: Morteza Hollis RN) polyethylene glycol (PEG) 3350 (Miralax) packet 17 g 17 g, Oral, Daily PRN, constipation, Starting on Thu04/22/24 at 2246, 1st line for treatment of constipation - give scheduled if no bowel movement in past 24 hours. tiZANidine (Zanaflex) tablet 4 mg 4 mg, Oral, Every 6 hours PRN, muscle spasms, Starting on Thu04/28/24 at 1834 2113 (Given - Provider: Joanna Lopez RN) [...] Grove RN)1358 (Given - Provider: Edilberto Grove RN)2124 (Given - Provider: Ayesha Ferrari RN) 0848 (Given - Provider: Edilberto Grove RN)1306 (Given - Provider: Edilberto Grove RN) gabapentin (Neurontin) capsule 300 mg 300 mg, Oral, 3 times daily, First dose (after last modification) on Thu07/05/24 at 2100 0822 (Given - Provider: Edilberto Grove RN)1358 (Given - Provider: Edilberto Grove, MEGGAN)2019 (Given - Provider: Diana Chisholm RN) 0824 (Given - Provider: Edilberto Grove RN)1358 (Given - Provider: Edilberto Grove RN)2123 (Given - Provider: Ayesha Ferrari RN) 0849 (Given - Provider: Edilberto Grove RN)1306 (Given - Provider: Edilberto Grove, MEGGAN) heparin injection 5,000 Units 5,000 Units, SubCUTAneous, Every 8 hours scheduled (3 times per day), First dose on Thu07/05/24 at 0600 0559 (Given - Provider: Jazmin Evans RN)1357 (Given - Provider: Edilberto Grove, MEGGAN)2019 (Given - Provider: Diana Chisholm RN) 0544 (Given - Provider: Diana Chisholm RN)1358 (Given - Provider: Edilberto Grove RN)212 [...] 0824 (Given - Provider: Edilberto Grove RN) 0824 [...] at 0900 0824 (Given - Provider: Edilberto Grove, MEGGAN) 0849 (Given - Provider: Edilberto Grove RN) sertraline (Zoloft) tablet 50 mg (CANCELED) 50 mg, Oral, Daily, First dose on Thu07/05/24 at 1000 0823 (Given - Provider: Edilberto Grove RN) spironolactone (Aldactone) tablet 25 mg 25 mg, Oral, Every morning, First dose on Thu07/05/24 at 0900 0823 (Given - Provider: Edilberto Grove RN) 0823 (Given - Provider: Edilberto Grove RN) 0849 (Given - Provider: Edilberto Grove RN) tamsulosin (Flomax) 24 hr capsule 0.4 [...] Grove RN) 0355 (Given - Provider: Ayesha Ferrari RN)1305 (Given - Provider: Edilberto Grove RN) albuterol [...] Edilberto Grove RN)2124 (Given - Provider: Ayesha Ferrari RN) 0354 (Given - Provider: Ayesha Ferrari RN) [...] IntraVENous, Every 12 hours, First dose on 07/09/24 at 1830, For 4 doses, Administer no [...] Thu12/23/22 at 0800 0847 (Given - Provider: Lyumdila Shane RN) 0825 (Given - Provider: Lyudmila Shane RN) 0804 (Given - Provider: Jose Luna, MEGGAN) dicyclomine (Bentyl) capsule 20 mg 20 mg, Oral, 3 times daily before meals, First dose on Thu12/22/22 at 2115 0616 (Given - Provider: Gill Briggs, MEGGAN)1050 (Given - Provider: Lyudmila Shane, MEGGAN)1535 (Given - Provider: Lyudmila Shane, MEGGAN) 0613 (Given - Provider: Gill Briggs, MEGGAN)1045 (Given - Provider: Lyudmila Shane RN)1457 (Given [...] 0804 (Given - Provider: Jose Luna, RN) folic acid (Folvite) tablet 1 mg 1 mg, Oral, Daily, First dose (after last reorder) on Thu12/22/22 at 2240 0847 (Given - Provider: Lyudmila Shane RN) 0825 (Given - Provider: Lyudmila Shane RN) 0804 (Given - Provider: Jose Luna, RN) levothyroxine (Synthroid, Levoxyl) tablet 50 mcg [...] Briggs RN)0613 (New Bag - Provider: Gill Rencher, RN)1046 (New Bag - Provider: Lyudmila Shane RN)2046 (Stopped - Provider: Viviana Rosenberg RN) sodium chloride 0.9 % infusion (CANCELED) 100 mL/hr, IntraVENous, Continuous, Starting on Thu12/22/22 at 2110 0652 (Rate/Dose Verify - Provider: Gill Briggs RN)0852 (New Bag - Provider: Lyudmila Shane RN)1535 (Stopped - Provider: Lyudmila Shane RN) PRN Medication Order 12/23/2022 12/24/2022 12/25/2022 [...]
Care Teams (unrecognized sec tion and content) Research Leader Relationship Specialty Start Date End Date Jani Quezada MD PCP - General 09/06/15 Research Leader Relationship Specialty Start Date End Date Jani Quezada MD PCP - General 09/06/15 Research Leader Relationship Specialty Start Date End Date Jani Quezada [address] [place], [place] [phone] PCP - General Internal Medicine 05/26/17 Research Leader Relationship Specialty Start Date End Date Jani Quezada [address] [place] [address] PCP - General Internal Medicine 05/26/17 Research Leader Relationship Specialty Start Date End Date Jani Quezada [address] [place] [address] PCP - General Internal Medicine 05/26/17 Research Leader Relationship Specialty Start Date End Date Jani Quezada [address] [place] [phone] PCP - General 09/06/15 Ana Callaway MD [address] [facility] [address] [place], [place] [phone] Gastroenterology 11/07/22 Research Leader Relationship Specialty Start Date End Date Jani Quezada [address] [place] [phone] PCP - General 09/06/15 Ana Callaway MD [address] [place] [address] [place], [place] [phone] Gastroenterology 11/07/22 Research Leader Relationship Specialty Start Date End Date Jani Quezada [address] [place] [phone] PCP - General 09/06/15 Ana Callaway MD [address] [place] [address] [facility] [address] [place], [place] [phone] Gastroenterology 11/07/22 Research Leader Relationship Specialty Start Date End Date Jani Quezada [address] [place] [phone] PCP - General 09/06/15 Ana Callaway MD [address] [place] [address] [facility] [address] [place], [place] [phone] Gastroenterology 11/07/22 Research Leader Relationship Specialty Start Date End Date Jani Quezada [address] [place] [phone] PCP - General 09/06/15 Ana Callaway MD [address] [place] [address] [facility] [address] [place] [address] Gastroenterology 11/07/22 Research Leader Relationship Specialty Start Date End Date Bryant Jani [address] [place] [phone] PCP - General 09/06/15 Ana Callaway MD [address] [place] [address] [facility] [address] [place], [place] [phone] Gastroenterology 11/07/22 Research Leader Relationship Specialty Start Date End Date Jani Quezada [address] [place] [address] PCP - General 09/06/15 Ana Callaway MD [address] [place] [address] [place], [place] [phone] Gastroenterology 11/07/22 Research Leader Relationship Specialty Start Date End Date Jani Quezada [address] [place] [address] PCP - General 09/06/15 Ana Callaway MD [address] [place] [address] [facility] [address] [place], [place] [phone] Gastroenterology 11/07/22 Research Leader Relationship Specialty Start Date End Date Jani Quezada [address] [place] [phone] PCP - General 09/06/15 Ana Callaway MD [address] [place] [address] [facility] [address] [place] [address] Gastroenterology 11/07/22 Research Leader Relationship Specialty Start Date End Date Jani Quezada [address] [place] [phone] PCP - General 09/06/15 Ana Callaway MD [address] [place] [address] [facility] [address] [place], [place] [phone] Gastroenterology 11/07/22 Research Leader Relationship Specialty Start Date End Date Jani Quezada [address] [place] [address] PCP - General 09/06/15 Ana Callaway MD [address] [place] [address] [place], [place] [phone] Gastroenterology 11/07/22 Lea Koehler, product marketing directorPipelines Manager Hydraulics Engineer 04/16/2303/20 Research Leader Relationship Specialty Start Date End Date Jani Quezada [address] [place] [phone] PCP - General 09/06/15 Ana Callaway MD [address] [place] [address] [facility] [address] [place] [address] Gastroenterology 11/07/22 Research Leader Relationship Specialty Start Date End Date Jani Quezada [address] [place], [place] [phone] PCP - General 09/06/15 Ana Callaway MD [address] [place] [address] [place] [address] Gastroenterology 11/07/22 Research Leader Relationship Specialty Start Date End Date Jani Quezada [address] [place] [phone] PCP - General 09/06/15 Ana Callaway MD [address] [place] [address] [place], [place] [phone] Gastroenterology 11/07/22 Research Leader Relationship Specialty Start Date End Date Jani Quezada [address] [place] [address] PCP - General 09/06/15 Ana Callaway MD [address] [place] [address] [place] [address] Gastroenterology 11/07/22 Research Leader Relationship Specialty Start Date End Date Jani Quezada [address] [place] [phone] PCP - General 09/06/15 Ana Callaway MD [address] [place] [address] [place] [address] Gastroenterology 11/07/22 Research Leader Relationship Specialty Start Date End Date Jani Quezada [address] [place] [phone] PCP - General 09/06/15 Ana Callaway MD [address] [place] [address] [place] [address] Gastroenterology 11/07/22 Research Leader Relationship Specialty Start Date End Date Jani Quezada [address] [place] [phone] PCP - General 09/06/15 Ana Callaway MD [address] [place] [address] [place] [address] Gastroenterology 11/07/22 Research Leader Relationship Specialty Start Date End Date Jani Quezada [address] [place] [address] PCP - General 09/06/15 Ana Callaway MD [address] [place] [address] [place] [address] Gastroenterology 11/07/22 Research Leader Relationship Specialty Start Date End Date Jani Quezada [address] [place] [address] PCP - General 09/06/15 Ana Callaway MD [address] [place] [address] [place] [address] Gastroenterology 11/07/22 Research Leader Relationship Specialty Start Date End Date Jani Quezada [address] [place] [address] PCP - General 09/06/15 Ana Callaway MD [address] [place] [address] [place] [address] Gastroenterology 11/07/22 Research Leader Relationship Specialty Start Date End Date Jani Quezada [address] [place] [phone] PCP - General 09/06/15 Ana Callaway MD [address] [place] [address] [place], [place] [phone] Gastroenterology 11/07/22 Research Leader Relationship Specialty Start Date End Date Jani Quezada [address] [place] [address] PCP - General 09/06/15 Ana Callaway MD [address] [place] [address] [place] [address] Gastroenterology 11/07/22 Research Leader Relationship Specialty Start Date End Date Jani Quezada [address] [place] [phone] PCP - General 09/06/15 Ana Callaway MD [address] [place] [address] [place] [address] Gastroenterology 11/07/22 Research Leader Relationship Specialty Start Date End Date Jani Quezada [address] [place] [phone] PCP - General 09/06/15 Ana Callaway MD [address] [place] [address] [place] [address] Gastroenterology 11/07/22 Research Leader Relationship Specialty Start Date End Date Jani Quezada [address] [place] [address] PCP - General 09/06/15 Ana Callaway MD [address] [place] [address] [place] [address] Gastroenterology 11/07/22 Research Leader Relationship Specialty Start Date End Date Jani Quezada [address] [place] [phone] PCP - General 09/06/15 Ana Callaway MD [address] [place] [address] [place], [place] [phone] Gastroenterology 11/07/22 Research Leader Relationship Specialty Start Date End Date Jani Quezada [address] [place] [phone] PCP - General 09/06/15 Ana Callaway MD [address] [place] [address] [facility] [address] [place], [place] [phone] Gastroenterology 11/07/22 Research Leader Relationship Specialty Start Date End Date Jani Quezada [address] [place] [phone] PCP - General 09/06/15 Ana Callaway MD [address] [place] [address] [facility] [facility] [address] [place] [address] Gastroenterology 11/07/22 Research Leader Relationship Specialty Start Date End Date Jani Quezada [address] [place] [phone] PCP - General 09/06/15 Ana Callaway MD [address] [facility] [address] [place], [place] [phone] Gastroenterology 11/07/22 Research Leader Relationship Specialty Start Date End Date Jani Quezada [address] [place] [phone] PCP - General 09/06/15 Ana Callaway MD [address] [place], [place] [phone] Gastroenterology 11/07/22 Research Leader Relationship Specialty Start Date End Date Jani Quezada [address] [place] [phone] PCP - General 09/06/15 Ana Callaway MD [address] [place] [address] Gastroenterology 11/07/22 Research Leader Relationship Specialty Start Date End Date Jani Quezada [address] [place] [phone] PCP - General 09/06/15 Ana Callaway MD [address] [facility] [address] [place] [address] Gastroenterology 11/07/22 Research Leader Relationship Specialty Start Date End Date Jani Quezada [address] [place] [phone] PCP - General 09/06/15 Ana Callaway MD [address] [facility] [address] [place] [address] Gastroenterology 11/07/22 Research Leader Relationship Specialty Start Date End Date Jani Quezada [address] [place] [phone] PCP - General 09/06/15 Ana Callaway MD [address] [place] [address] Gastroenterology 11/07/22 Research Leader Relationship Specialty Start Date End Date Jani Quezada [address] [place] [phone] PCP - General 09/06/15 Ana Callaway MD 1 [facility] [address] [place], [place] [phone] Gastroenterology 11/07/22 Research Leader Relationship Specialty Start Date End Date Jani Quezada [address] [place] [phone] PCP - General 09/06/15 Ana Callaway MD [address] [place] [address] [facility] [address] [place], [place] [phone] Gastroenterology 11/07/22 Research Leader Relationship Specialty Start Date End Date Jani Quezada [address] [place] [phone] PCP - General 09/06/15 Ana Callaway MD 1 [facility] [address] [place], [place] [phone] Gastroenterology 11/07/22 Team Status: Active Member Role/Relationship Status Dates Dr. Jani Quezada MD Primary Care Provider Active Team Status: Active Member Role/Relationship Status Dates Dr. Jani Quezada MD Primary Care Provider Active Start: May 08, 2025 Dr. Eddy Haddad MD Emergency Provider Active Start: May 08, 2025 Dr. Oksana Vázquez DO Admit Provider Active Start: May 08, 2025 Dr. Oksana Vázquez DO Attending Provider Active Start: May 08, 2025 Source Comments (unrecognize d section and content) In the event this informatio n is protected by the Federal Confidentiality of Alcohol and Drug Abuse Patient Records regulations: The Federal rules restrict any use of the information to criminally investigate or prosecute any alcohol or drug abuse patient.[facility] the event this information is protected by the Federal Confidentiality of Alcohol and Drug Abuse Patient Records regulations: The Federal rules restrict any use of the information to criminally investigate or prosecute any alcohol or drug abuse patient.[facility] the event this information is protected by the Federal Confidentiality of Alcohol and Drug Abuse Patient Records regulations: The Federal rules restrict any use of the information to criminally investigate or prosecute any alcohol or drug abuse patient.[facility] the event this information is protected by the Federal Confidentiality of Alcohol and Drug Abuse Patient Records regulations: The Federal rules restrict any use of the information to criminally investigate or prosecute any alcohol or drug abuse patient.[facility] FOR RECORDS PERTAINING TO PATIENTS WHO [...] BE BASED ON THE PRIMARY CLINICAL RECORDS. [facility]. provides no warranty or guarantee of the accuracy or completeness of information in this document.
[2025-05-08] MEDS: 0.9% Normal Saline (1000mL) 1,000 ML 70 ML IV (02:41)
[2025-05-08] MEDS: MELATONIN 3 MG TABLET PO (02:52)
[2025-05-08 03:20] LABS: Mucous, Urine 0 SEEN /hpf (<or=2+)
[2025-05-08 03:30] LABS: Color, Urine Yellow (Yellow); Glucose, Dipstick Normal (Normal); Ketone-Dipstick Negative (Negative); Leukocyte Esterase-Dipstick 500 /ul (Negative); Nitrite-Dipstick Negative (Negative); Occult Blood-Urine 10 /ul (Negative); Protein-Dipstick Negative (Negative); Specific Gravity, Urine 1.005 (1.002-1.030); Urine Bilirubin Dipstick Negative (Negative)
[2025-05-08 03:43] LABS: Red Blood Cells-Urine 0-5 SEEN /hpf (0-5); Squamous Epithelial Cells - UA 0-5 SEEN /hpf (0-5)
[2025-05-08 06:20] LABS: Osmolality, Urine 113 mOsm/KG
[2025-05-08] MEDS: Aztreonam 1 GM 1 GM in 0.9% Normal Saline (50mL MB+) 50 ML IV ×2 (06:41→14:18)
[2025-05-08] MEDS: hydrOXYzine PAM 25 MG Capsule PO (06:41)
[2025-05-08 07:56] LABS: Hematocrit 33.3 % (40-54); Hemoglobin 11.6 g/dL (13.0-16.5); Immature Granulocytes Count 0.020 X10^3/uL (0.0-0.0); Mean Corp Hgb Conc 34.8 g/dL (32-36); Mean Corpuscular Volume 89.8 fL (80-94); Mean Platelet Vol. 9.1 fl (6.2-12.0); NRBC Flagged by Analyzer 0 % (0-5); Platelet Count 110 K/mm3 (150-450); RBC Distribution Width CV 14.6 % (11.6-14.6); RBC Distribution Width SD 47.6 fl (35.1-43.9); Red Blood Count 3.71 M/mm3 (4.6-6.2); White Blood Count 5.1 K/mm3 (4.4-11.0)
[2025-05-08] MEDS: Thiamine Hydrochloride 100 MG Tablet PO (08:08)
[2025-05-08] MEDS: Potassium Chloride Oral Tablet 10 MEQ PO (08:08)
[2025-05-08 09:04] LABS: AST(SGOT) 21 U/L (<=37); Alanine Aminotransfer ALT/SGPT 10 U/L (<=46); Albumin, Serum 3.8 g/dL (3.4-4.8); Alkaline Phosphatase 75 U/L (40-129); Anion Gap 17 (5-15); BUN 9 mg/dL (4-19); BUN/Creat Ratio 9.1 RATIO (10-20); Calcium,Total 8.7 mg/dL (7.6-11.0); Carbon Dioxide 20.9 mmol/L (21.0-32.0); Chloride 93 mmol/L (98-108); Estimated Creatinine Clearance 88.08 ml/min (50-250); Globulin 2.3 g/dL (2.2-4.2); Glucose 75 mg/dL (70-99); Potassium 3.6 mmol/L (3.3-5.1); Vitamin B12 365 pg/mL (180-914)
[2025-05-08 10:03] LABS: Osmolality, Serum 304 mOsm/KG (280-301)
--- NOTE | 2025-05-08 12:14 | ADDICTION ---
Attempted to meet with patient. He was sleeping and struggled to wake when roused. Will meet tomorrow.
[2025-05-08 12:31] LABS: Anion Gap 16 (5-15); BUN 9 mg/dL (4-19); BUN/Creat Ratio 9.4 RATIO (10-20); Calcium,Total 9.0 mg/dL (7.6-11.0); Carbon Dioxide 21.4 mmol/L (21.0-32.0); Chloride 97 mmol/L (98-108); Estimated Creatinine Clearance 91.91 ml/min (50-250); Glucose 93 mg/dL (70-99); Potassium 3.9 mmol/L (3.3-5.1)
--- NOTE | 2025-05-08 15:40 | CASEMGMT ---
Social Work- SW met with pt to complete SDOH assessment. Pt provided resources at outlined in assessment. Pt questioned SNF, reporting that he wanted to go, but didn't have coverage with his insurance. SW provided education on [facility]/ [facility] and SNF stay. Pt reports last visit, he was supposed to be connected with [facility], but Jonn (reported by pt to be from [facility]) didn't come to transport pt to appointment. Pt reports that he called and left a message for [facility] staff, but never heard back. Pt reported that he would be willing to connect with [facility] again if transportation could be provided. SW encouraged pt to discuss with Ainsley/[facility] coordinator. SW to follow if pt decides to d/c to SNF. If discharge home, APS referral to be completed. GISSELL Tom
--- NOTE | 2025-05-08 19:10 | PN.HOSP_ITS ---
Reason for Visit Chief Complaint: Desire for EtOH Detox and Fall. Subjective Subjective Patient was seen and examined today, I elected to stop his Azactam and placed him on Cipro orally. Patient complains of some nervousness and anxiety. Objective Data Objective Data Vital Signs: Vital Signs Temp Pulse Resp BP Pulse Ox O2 Del Method 97.5 F L 84 16 125/74 H 97 Room Air 05/08/25 16:13 05/08/25 16:13 05/08/25 16:13 05/08/25 16:13 05/08/25 16:13 05/08/25 16:13 Oxygen Delivery Method Room Air Weight: 93.44 kg Body Mass Index (BMI) 29.5 Intake & Output: Intake and Output for Last 24 Hours 05/06/25 05/07/25 05/08/25 23:59 23:59 23:59 Intake Total 0 / 0 2912.5 / 2912.5 Output Total 2100 / 2100 Balance 0 / 0 812.5 / 812.5 Lab / Micro Data 05/08/25 07:06 05/08/25 11:48 Labs: Laboratory Results - last 24 hr 05/07/25 23:30: WBC 9.6, RBC 4.08 L, Hgb 13.1, Hct 36.2 L, MCV 88.7, MCH 32.1 H, MCHC 36.2 H, RDW Std Deviation 46.7 H, RDW Coeff of Heidi 14.5, Plt Count 129 L, MPV 9.2, Immature Gran % (Auto) 1.000 H, Neut % (Auto) 45.2 L, Lymph % (Auto) 46.2 H, Atkinson % (Auto) 6.7, Eos % (Auto) 0.6, Baso % (Auto) 0.3, Absolute Neuts (auto) 4.3, Absolute Lymphs (auto) 4.43, Nucleated RBC % 0, PT 13.7, INR 1.0, S odium 124 L, Potassium 3.6, Chloride 85 L, Carbon Dioxide 19.1 L, Anion Gap 20 H , BUN 9, Creatinine 1.02, Est GFR (MDRD) Non-Af 82, BUN/Creatinine Ratio 8.6 L, Glucose 98, Calcium 9.0, Magnesium 1.5, Total Bilirubin 0.69, AST 22, ALT 12, Alkaline Phosphatase 89, Total Protein 7.1, Albumin 4.4, Globulin 2.8, Albumin/Globulin Ratio 1.6, Serum Folate 6.23, Ethyl Alcohol 272.0 H 05/07/25 23:40: Urine Opiates Screen NEGATIVE, U Buprenorphine Qual NEGATIVE, Ur Oxycodone Screen NEGATIVE, Urine Methadone Screen NEGATIVE, Urine Fentanyl Screen NEGATIVE, Ur Barbiturates Screen NEGATIVE, Ur Phencyclidine Scrn NEGATIVE, Ur Amphetamines Screen NEGATIVE, U Benzodiazepines Scrn NEGATIVE, Urine Cocaine Screen NEGATIVE, U Cannabinoids Screen PRESUMPTIVE POSITIVE 05/08/25 03:10: Urine Color Yellow, Urine Clarity Clear, Urine pH 6.5, Ur Specific [place] 1.005, Urine Protein Negative, Urine Glucose (UA) Normal, Urine Ketones Negative, Urine Occult Blood 10 H, Urine Nitrite Negative, Urine Bilirubin Negative, Urine Urobilinogen Normal, Ur Leukocyte Esterase 500 H, Urine RBC 0-5 SEEN, Urine WBC 10-25 SEEN, Ur Squamous Epith Cells 0-5 SEEN, Urine Bacteria 2+, Urine Mucus 0 SEEN, Urine Osmolality 113 05/08/25 07:06: WBC 5.1, RBC 3.71 L, Hgb 11.6 L, Hct 33.3 L, MCV 89.8, MCH 31.3, MCHC 34.8, RDW Std Deviation 47.6 H, RDW Coeff of Heidi 14.6, Plt Count 110 L, MPV 9.1, Immature Gran % (Auto) 0.400, Neut % (Auto) 39.6 L, Lymph % (Auto) 53.5 H, Atkinson % (Auto) 5.1, Eos % (Auto) 1.2, Baso % (Auto) 0.2, Absolute Neuts (auto) 2.0, Absolute Lymphs (auto) 2.74, Nucleated RBC % 0, Sodium 130 L, Potassium 3.6, Chloride 93 L, Carbon Dioxide 20.9 L, Anion Gap 17 H, BUN 9, Creatinine 0.96, Estim Creat Clear Calc 88.08, Est GFR (MDRD) Non-Af 88, BUN/Creatinine Ratio 9.1 L, Glucose 75, Serum Osmolality 304 H, Calcium 8.7, Phosphorus 3.5, Total Bilirubin 0.64, AST 21, ALT 10, Alkaline Phosphatase 75, Total Protein 6.1, Albumin 3.8, Globulin 2.3, Albumin/Globulin Ratio 1.7, Vitamin B12 365, TSH 1.440 05/08/25 11:48: Sodium 134, Potassium 3.9, Chloride 97 L, Carbon Dioxide 21.4, A nion Gap 16 H, BUN 9, Creatinine 0.92, Estim Creat Clear Calc 91.91, Est GFR (MDRD) Non-Af 93, BUN/Creatinine Ratio 9.4 L, Glucose 93, Calcium 9.0 Micro: Microbiology 05/08/25 11:30 Stool Stool Lactoferrin - Final 05/08/25 11:30 Stool C. difficile GDH Antigen & Toxins - Final 05/08/25 11:30 Stool Clostridioides difficile (PCR) - Final Radiography Diagnostic Testing: Radiology Impression Brain CT 05/07/25 23:08 IMPRESSION: No acute findings Reading Location: [place] [address] Physical Exam Const alert and no apparent distress General Appearance: cooperative Orientation / Consciousness: awake, oriented to person and oriented to place HEENT normocephalic, head/scalp atraumatic and moist oral mucous membranes Eyes PERRL, EOMs intact bilaterally and conjunctivae normal Neck supple, no JVD, thyroid normal and no carotid bruits General: trachea midline Resp normal respiratory effort, no retractions, no use of accessory muscles and clear to auscultation bilaterally Auscultation: Negative for rales, rhonchi or wheezes Cardio regular rate, regular rhythm, S1 normal heart sound, S2 normal heart sound, no murmurs, no rub and no gallops GI normal to inspection, nondistended, normoactive bowel sounds, soft to palpation, non-tender and non-distended Extremity no clubbing, cyanosis or edema Skin no rashes or lesions noted General Skin Exam: no breakdown Neuro CN's II-XII intact bilaterally, moves all extremities, no focal motor deficits and no sensory deficits noted Sensorium / Orientation: awake, alert, oriented to person and oriented to place Speech: speech normal Psych affect normal Assessment & Plan Assessment/Plan (1) Desire for detoxification: PLAN: Plan 1. Acute alcohol withdrawal-patient will remain on his present medications #2 acute debility secondary to chronic alcoholism-patient states he would like to go to a correction facility if possible for short-term rehab services, nursing home social worker will attempt to place him #3 acute cystitis-again I changed the patient over to Cipro p.o. and stopped his Azactam #4 hyponatremia secondary to excessive beer intake-corrected at this time #5 essential hypertension-patient will remain on his present medications #6 hypothyroidism-patient is on Synthroid Total clinical time spent by myself addressing the patient's medical issues, reviewing all of his data, and collaborating with patient's care team: 35 minutes Charges/Coding Visit Charges Inpatient E&M: 07008 Subs Hosp L2
[2025-05-09 03:46] VITALS: BP 114/71; PULSE 67; RESP 15; TEMP 36.6; O2SAT 97
[2025-05-09 06:00] VITALS: BMI 28.3
[2025-05-09] MEDS: Vancomycin 125 MG/5 ML Susp PO.SYRINGE PO ×5 (06:35→23:31)
[2025-05-09] MEDS: Thiamine Hydrochloride 100 MG Tablet PO (08:23)
[2025-05-09] MEDS: Potassium Chloride Oral Tablet 10 MEQ PO (08:23)
[2025-05-09 09:00] VITALS: RESP 18
[2025-05-09 10:34] VITALS: BP 128/76; PULSE 78; RESP 16; TEMP 37.1; O2SAT 98
[2025-05-09 15:00] VITALS: RESP 18
[2025-05-09 16:05] VITALS: BP 129/83; PULSE 68; RESP 18; TEMP 37.1; O2SAT 98
--- NOTE | 2025-05-09 19:01 | PCM.PN.HOSP ---
Reason for Visit Chief Complaint: Desire for EtOH Detox and Fall. Subjective Subjective Patient was seen and examined today, he he appears frustrated because he is not receiving prednisone which he takes twice a month according to the patient. I called the patient's pharmacy and verified that the patient does have a prescription for 20 mg prednisone-1 twice daily. It appears the patient takes this twice a month for osteoarthritis. I also talked briefly with addiction social work program coordinator concerning follow-up for the patient after [facility] discharge, currently the patient wants to go to a long term facility so it is not possible for him to go into a detox program directly when he is discharged from the hospital. card services specialist stated that the patient had several inconsistencies in his narrative concerning the last 2 times he has been in the hospital for the [facility] program. Objective Data Objective Data Vital Signs: Vital Signs Temp Pulse Resp BP Pulse Ox O2 Del Method 98.7 F 68 18 129/83 H 98 Room Air 05/09/25 16:05 05/09/25 16:05 05/09/25 16:05 05/09/25 16:05 05/09/25 16:05 05/09/25 16:05 Oxygen Delivery Method Room Air Weight: 89.8 kg Body Mass Index (BMI) 28.3 Intake & Output: Intake and Output for Last 24 Hours 05/07/25 05/08/25 05/09/25 23:59 23:59 23:59 Intake Total 0 / 0 2912.5 / 2912.5 1800 / 1800 Output Total 2100 / 2300 1350 / 1350 Balance 0 / 0 812.5 / 612.5 450 / 450 Lab / Micro Data 05/08/25 07:06 05/08/25 11:48 Micro: Microbiology 05/08/25 11:30 Stool Stool Lactoferrin - Final 05/08/25 11:30 Stool Enteric Bacteriology - Final 05/08/25 11:30 Stool C. difficile GDH Antigen & Toxins - Final 05/08/25 11:30 Stool Clostridioides difficile (PCR) - Final Physical Exam Narrative alert and no apparent distress General Appearance: cooperative Orientation / Consciousness: awake, oriented to person and oriented to place HEENT normocephalic, head/scalp atraumatic and moist oral mucous membranes Eyes PERRL, EOMs intact bilaterally and conjunctivae normal Neck supple, no JVD, thyroid normal and no carotid bruits General: trachea midline Resp normal respiratory effort, no retractions, no use of accessory muscles and clear to auscultation bilaterally Auscultation: Negative for rales, rhonchi or wheezes Cardio regular rate, regular rhythm, S1 normal heart sound, S2 normal heart sound, no murmurs, no rub and no gallops GI normal to inspection, nondistended, normoactive bowel sounds, soft to palpation, non-tender and non-distended Extremity no clubbing, cyanosis or edema Skin no rashes or lesions noted General Skin Exam: no breakdown Neuro CN's II-XII intact bilaterally, moves all extremities, no focal motor deficits and no sensory deficits noted Sensorium / Orientation: awake, alert, oriented to person and oriented to place Speech: speech normal Psych affect normal Assessment & Plan Assessment/Plan (1) Alcohol dependence: QUALIFIERS: Substance use status: with intoxication Complication of substance-induced condition: uncomplicated Qualified Code(s): F10.220 - Alcohol dependence with intoxication, uncomplicated (2) Desire for detoxification: PLAN: Plan 1. Acute alcohol withdrawal-patient will remain on his present medications #2 acute debility secondary to chronic alcoholism-patient states he would like to go to a long term facility if possible for short-term rehab services, social work program coordinator will attempt to place him #3 acute cystitis-patient is currently on Cipro #4 hyponatremia secondary to excessive beer intake-corrected at this time #5 essential hypertension-patient will remain on his present medications #6 hypothyroidism-patient is on Synthroid #7 degenerative disc disease of the lumbar spine secondary to osteoarthritis-I placed the patient on his outpatient dose of prednisone which she takes 2 weeks out of the month-according to the patient he alternates weeks Total clinical time spent by myself addressing the patient's medical issues, reviewing all of his data, and collaborating with patient's care team: 35 minutes Charges/Coding Visit Charges Inpatient E&M: 00651 Subs Hosp L2
[2025-05-09 19:34] VITALS: BP 114/70; PULSE 81; RESP 18; TEMP 36.6; O2SAT 98
[2025-05-10 02:27] VITALS: BP 151/94; PULSE 87; RESP 16; TEMP 36.4; O2SAT 97
[2025-05-10 04:04] VITALS: BP 144/85; PULSE 66; RESP 18; TEMP 36.4; O2SAT 98
[2025-05-10 05:32] VITALS: BMI 28.3
[2025-05-10] MEDS: Vancomycin 125 MG/5 ML Susp PO.SYRINGE PO ×3 (06:13→18:29)
[2025-05-10] MEDS: Thiamine Hydrochloride 100 MG Tablet PO (08:54)
[2025-05-10 10:00] VITALS: BP 148/98; PULSE 98; RESP 16; TEMP 36.4; O2SAT 100
[2025-05-10] MEDS: Diphenoxylate/Atrop 1 Tablet 2 TABLET PO ×3 (12:23→21:58)
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
[2025-05-10 16:00] VITALS: BP 143/86; PULSE 88; RESP 18; TEMP 36.4; O2SAT 98
[2025-05-10] MEDS: hydrOXYzine PAM 25 MG Capsule 50 MG PO (18:28)
--- NOTE | 2025-05-10 18:30 | PCM.PN.HOSP ---
Reason for Visit Chief Complaint: Desire for EtOH Detox and Fall. Subjective Subjective Patient was seen and examined today, I wrote for physical therapy to consult, patient is still having diarrhea, I placed him on Bentyl and scheduled Imodium. Objective Data Objective Data Vital Signs: Vital Signs Temp Pulse Resp BP Pulse Ox O2 Del Method 97.6 F L 88 18 143/86 H 98 Room Air 05/10/25 16:00 05/10/25 16:00 05/10/25 16:00 05/10/25 16:00 05/10/25 16:00 05/10/25 16:00 Oxygen Delivery Method Room Air Weight: 89.6 kg Body Mass Index (BMI) 28.3 Intake & Output: Intake and Output for Last 24 Hours 05/08/25 05/09/25 05/10/25 23:59 23:59 23:59 Intake Total 2912.5 / 2912.5 1800 / 1800 2700 / 2700 Output Total 2100 / 2300 1350 / 1350 400 / 400 Balance 812.5 / 612.5 450 / 450 2300 / 2300 Lab / Micro Data 05/08/25 07:06 05/08/25 11:48 Micro: Microbiology 05/08/25 03:10 Urine, Clean Catch Urine Culture - Preliminary GNR lactose fuel oil clerk 05/08/25 11:30 Stool Stool Lactoferrin - Final 05/08/25 11:30 Stool Enteric Bacteriology - Final 05/08/25 11:30 Stool C. difficile GDH Antigen & Toxins - Final 05/08/25 11:30 Stool Clostridioides difficile (PCR) - Final Physical Exam Narrative alert and no apparent distress General Appearance: cooperative Orientation / Consciousness: awake, oriented to person and oriented to place HEENT normocephalic, head/scalp atraumatic and moist oral mucous membranes Eyes PERRL, EOMs intact bilaterally and conjunctivae normal Neck supple, no JVD, thyroid normal and no carotid bruits General: trachea midline Resp normal respiratory effort, no retractions, no use of accessory muscles and clear to auscultation bilaterally Auscultation: Negative for rales, rhonchi or wheezes Cardio regular rate, regular rhythm, S1 normal heart sound, S2 normal heart sound, no murmurs, no rub and no gallops GI normal to inspection, nondistended, normoactive bowel sounds, soft to palpation, non-tender and non-distended Extremity no clubbing, cyanosis or edema Skin no rashes or lesions noted General Skin Exam: no breakdown Neuro CN's II-XII intact bilaterally, moves all extremities, no focal motor deficits and no sensory deficits noted Sensorium / Orientation: awake, alert, oriented to person and oriented to place Speech: speech normal Psych affect normal Assessment & Plan Assessment/Plan (1) Acute cystitis without hematuria: (2) Alcohol dependence: QUALIFIERS: Substance use status: with intoxication Complication of substance-induced condition: uncomplicated Qualified Code(s): F10.220 - Alcohol dependence with intoxication, uncomplicated (3) Desire for detoxification: PLAN: Plan 1. Acute alcohol withdrawal-patient will remain on his present medications #2 acute debility secondary to chronic alcoholism-patient states he would like to go to a retirement facility if possible for short-term rehab services, protective services social worker will attempt to place him #3 acute cystitis-patient is currently on Cipro #4 hyponatremia secondary to excessive beer intake-corrected at this time #5 essential hypertension-patient will remain on his present medications #6 hypothyroidism-patient is on Synthroid #7 degenerative disc disease of the lumbar spine secondary to osteoarthritis-I placed the patient on his outpatient dose of prednisone which she takes 2 weeks out of the month-according to the patient he alternates weeks #8 positive C. difficile antigen without toxin-I have elected to place the patient on vancomycin p.o. especially since he is taking Cipro for UTI Total clinical time spent by myself addressing the patient's medical issues, reviewing all of his data, and collaborating with patient's care team: 35 minutes Charges/Coding Visit Charges Inpatient E&M: 55304 Subs Hosp L2
[2025-05-10 21:52] VITALS: BP 188/93; PULSE 98; RESP 16; TEMP 36.4; O2SAT 93
[2025-05-10] MEDS: 0.9% Saline Lock 10 ML Syringe IV (21:57)
[2025-05-11 01:22] VITALS: BP 138/80; PULSE 67; RESP 16; TEMP 36.9; O2SAT 96
[2025-05-11] MEDS: hydrOXYzine PAM 25 MG Capsule 50 MG PO (01:24)
[2025-05-11] MEDS: Arthritis Pain Compound 60 CLICK TUBE TOPICAL (01:26)
[2025-05-11] MEDS: Vancomycin 125 MG/5 ML Susp PO.SYRINGE PO ×4 (01:26→16:57)
[2025-05-11 05:38] VITALS: BMI 28.8
[2025-05-11 06:51] VITALS: BP 153/79; PULSE 90; RESP 16; TEMP 36.5; O2SAT 97
[2025-05-11 09:00] VITALS: BP 175/76; PULSE 88; RESP 18; TEMP 36.4; O2SAT 98
[2025-05-11] MEDS: Diphenoxylate/Atrop 1 Tablet 2 TABLET PO ×4 (09:05→21:37)
[2025-05-11] MEDS: Thiamine Hydrochloride 100 MG Tablet PO (09:05)
[2025-05-11 14:21] VITALS: BP 156/97; PULSE 96; RESP 18; TEMP 36.2; O2SAT 98
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
--- NOTE | 2025-05-11 19:12 | PCM.PN.HOSP ---
Reason for Visit Chief Complaint: Desire for EtOH Detox and Fall. Subjective Subjective Patient was seen and examined today, he still states he has severe diarrhea-he stated he had 18 bowel movements this morning. I have elected to place the patient on a clear liquid diet and stop his Cipro, urine culture grew out E. coli which is sensitive to many antibiotics, I have made the decision to place him on a few days of Macrobid. He is still on Lomotil for diarrhea along with Bentyl. Objective Data Objective Data Vital Signs: Vital Signs Temp Pulse Resp BP Pulse Ox O2 Del Method 97.2 F L 96 18 156/97 H 98 Room Air 05/11/25 14:21 05/11/25 14:21 05/11/25 14:21 05/11/25 14:21 05/11/25 14:21 05/11/25 14:21 Oxygen Delivery Method Room Air Weight: 91.3 kg Body Mass Index (BMI) 28.8 Intake & Output: Intake and Output for Last 24 Hours 05/09/25 05/10/25 05/11/25 23:59 23:59 23:59 Intake Total 1800 / 1800 2700 / 2700 Output Total 1350 / 1350 400 / 400 Balance 450 / 450 2300 / 2300 Lab / Micro Data 05/08/25 07:06 05/08/25 11:48 Micro: Microbiology 05/08/25 03:10 Urine, Clean Catch Urine Culture - Final Escherichia coli 05/08/25 11:30 Stool Stool Lactoferrin - Final 05/08/25 11:30 Stool Enteric Bacteriology - Final 05/08/25 11:30 Stool C. difficile GDH Antigen & Toxins - Final 05/08/25 11:30 Stool Clostridioides difficile (PCR) - Final Physical Exam Narrative alert and no apparent distress General Appearance: cooperative Orientation / Consciousness: awake, oriented to person and oriented to place HEENT normocephalic, head/scalp atraumatic and moist oral mucous membranes Eyes PERRL, EOMs intact bilaterally and conjunctivae normal Neck supple, no JVD, thyroid normal and no carotid bruits General: trachea midline Resp normal respiratory effort, no retractions, no use of accessory muscles and clear to auscultation bilaterally Auscultation: Negative for rales, rhonchi or wheezes Cardio regular rate, regular rhythm, S1 normal heart sound, S2 normal heart sound, no murmurs, no rub and no gallops GI normal to inspection, nondistended, normoactive bowel sounds, soft to palpation, non-tender and non-distended Extremity no clubbing, cyanosis or edema Skin no rashes or lesions noted General Skin Exam: no breakdown Neuro CN's II-XII intact bilaterally, moves all extremities, no focal motor deficits and no sensory deficits noted Sensorium / Orientation: awake, alert, oriented to person and oriented to place Speech: speech normal Psych affect normal Assessment & Plan Assessment/Plan (1) Acute cystitis without hematuria: (2) Alcohol dependence: QUALIFIERS: Substance use status: with intoxication Complication of substance-induced condition: uncomplicated Qualified Code(s): F10.220 - Alcohol dependence with intoxication, uncomplicated (3) Desire for detoxification: PLAN: Plan 1. Acute alcohol withdrawal-I have decided to taper the patient's phenobarb down to twice daily. #2 acute debility secondary to chronic alcoholism-patient states he would like to go to a penitentiary facility if possible for short-term rehab services, social work therapist will attempt to place him #3 acute cystitis-from E. coli-I have decided to take the patient off Cipro and place him on Macrobid due to the fact Macrobid is not absorbed into the bloodstream. #4 hyponatremia secondary to excessive beer intake-corrected at this time #5 essential hypertension-patient will remain on his present medications #6 hypothyroidism-patient is on Synthroid #7 degenerative disc disease of the lumbar spine secondary to osteoarthritis-I placed the patient on his outpatient dose of prednisone which she takes 2 weeks out of the month-according to the patient he alternates weeks #8 positive C. difficile antigen without toxin-patient remains on p.o. vancomycin, he is on Bentyl and Lomotil for diarrhea Total clinical time spent by myself addressing the patient's medical issues, reviewing all of his data, and collaborating with patient's care team: 35 minutes Charges/Coding Visit Charges Inpatient E&M: 51990 Subs Hosp L2
[2025-05-11 20:57] VITALS: BP 180/98; PULSE 98; RESP 18; TEMP 36.6; O2SAT 98
[2025-05-11 22:30] VITALS: BMI 28.8
[2025-05-12] MEDS: Vancomycin 125 MG/5 ML Susp PO.SYRINGE PO ×3 (00:04→11:51)
[2025-05-12 05:29] VITALS: BP 140/83; PULSE 73; RESP 18; TEMP 36.5; O2SAT 97
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
[2025-05-12] MEDS: Thiamine Hydrochloride 100 MG Tablet PO (09:57)
[2025-05-12] MEDS: Diphenoxylate/Atrop 1 Tablet 2 TABLET PO ×2 (09:57→14:30)
[2025-05-12 10:02] VITALS: BP 189/84; PULSE 118; RESP 18; TEMP 36.2; O2SAT 97
--- NOTE | 2025-05-12 11:18 | CASEMGMT ---
Addendum entered by Luda Jackson 05/12/25 15:29: Hospitalist reports that he is agreeable to pt d/c home. SW updated pt. Pt requesting behavioral health services through [facility]. Pt scheduled for 05/17 at 14:00. SW attempted to call [facility], [facility], and [facility] to schedule transport. [facility] unable to provide transport. [place] is closed. SW updated pt on appointment time and provided transortation contacts if family is unable to transport. GISSELL Tom Addendum entered by Luda Jackson 05/12/25 14:31: maintenance worker house trailer, Sofia, recommending maggie-psych placement for pt. Pt would like PCP to be notified. SW called Dr Llanos and left a message to provide updates; corporate responsibility officer encouraged pt to get help he needs and was appreciative of update. Hospitalist updated. Pt updated. Pt reporting that he will "throw a fit" if he doesn't get to go home, as pt reports that he is "only crazy because I haven't had my medicine from home". Pt reports he had his "nightmare medicine" last night and was able to sleep. Hospitalist updated. SW remains available to follow. GISSELL Tom Original Note: Social Work- SW received notice from charge nurse that dietary reported pt made threatening statements towards staff. Pt also threw a cup at staff. SW met with pt who reports that he was very thirsty and had been waiting since 3am for a drink, Pt reports that he was frustrated. Pt expressed concerns about not having had his meds. SW verified with nurse that medications had been dispensed. Pt expressed that he feels "like I'm going crazy". Pt asked SW to help with psychiatric treatment. Pt agreeable to inpatient placement. Pt tearful, rocking reporting that he is "going crazy". SW practiced co-regulation, having pt practice slow, metered breathing with SW. Pt was able to return to less labile state with assistance. Pt reportedly asking SW not to leave and to help him. SW offered support via empathetic and active listening. SW guided pt through conversation to practice thought reframing. SW coordinated with hospitalist on pt status. Hospitalist agreeable to assessment for maggie-psych placement. SW completed referral to [facility]; SW followed up with a phone call. Clinician will reportedly be out at approximately 11:30. Hospitalist updated. Bedside nurse updated. ALEX remains available to follow. GISSELL Tom
[2025-05-12 14:33] VITALS: BP 182/97; PULSE 103; RESP 18; TEMP 36.8; O2SAT 97
--- NOTE | 2025-05-12 15:19 | PCM.DC ---
Discharge Instructions DC O2, CPAP, BIPAP needs Home O2 Discharge instructions: No Dressing / Incision Discharge Activity: Return to Normal Activity Weight Bearing Status: Full weight bearing Follow Up Care Test Results: Test results from this visit will be discussed in further detail at your follow-up appointment, if applicable. Discharge Plan Admission Admit Date/Time: 05/08/25 01:36 Primary Reason for Your Visit: C. difficile colitis, urinary tract infection, alcohol detox Attending Provider: Rohan Bethea Primary Care Provider: Sudarshan Llanos Consulting Providers: Bang Vázquez Instructions Additional Instructions / Restrictions: I strongly recommend you follow-up with outpatient detox Discharge Orders/Prescriptions Prescriptions: New prednisone 20 mg Tablet 20 mg PO BIDCM Qty: 0 0RF nitrofurantoin monohyd/m-cryst 100 mg Capsule 100 mg PO BID Qty: 7 0RF vancomycin 125 mg capsule 125 mg PO 4XD Qty: 17 0RF Rx Instructions: 1 capsule 4 times a day starting tonight Continued nitroglycerin [Nitrostat] 0.4 mg tablet, sublingual 0.4 mg sublingual Q5M PRN (Reason: chest pain) Qty: 3 0RF Rx Instructions: do not exceed 3 doses per episode mirtazapine 15 mg tablet 15 mg PO QHS Qty: 3 0RF losartan 100 mg tablet 100 mg PO DAILY Qty: 3 0RF albuterol sulfate 90 mcg/actuation HFA aerosol inhaler 2 puff inhalation Q6H PRN PRN (Reason: shortness of breath or wheezing) potassium chloride 10 mEq tablet extended release 10 meq PO DAILY dicyclomine 20 mg tablet 20 mg PO TID hydroxyzine pamoate 50 mg capsule 50 mg PO Q6H PRN PRN (Reason: ITCHING/ANXIETY) levothyroxine 75 mcg tablet 75 mcg PO DAILY omeprazole 40 mg capsule,delayed release(DR/EC) 40 mg PO DAILY ondansetron HCl 8 mg tablet 8 mg PO Q8H PRN PRN (Reason: nausea and vomiting) pravastatin 80 mg tablet 80 mg PO QHS tamsulosin 0.4 mg capsule 0.4 mg PO DAILY tizanidine 4 mg tablet 4 mg PO Q6H PRN (Reason: muscle spasticity) prazosin 5 mg capsule 5 mg PO QHS Referrals / Follow Up: Sudarshan Llanos MD [Primary Care Provider] - Behavioral,Health [facility] [Group of Physicians] - 05/17/25 2:00 pm (You will need transportation to this appointment. ) Disposition Disposition (needs filled in before D/C Order can be placed): Home, Self Care
--- NOTE | 2025-05-12 15:33 | DS.PCM_ITS ---
Providers Date of Admission: 05/08/25 Date of Discharge: 05/12/25 Primary Care Physician: Dr. Sudarshan Llanos MD Reason For Visit: ACUTE ETOH INTOXICATION, HYPONATREMIA AND DIARRHEA Diagnosis Discharge Diagnosis (1) Acute cystitis without hematuria: Status: Acute Code(s): N30.00 - Acute cystitis without hematuria (2) Alcohol dependence: Status: Acute Code(s): F10.20 - Alcohol dependence, uncomplicated Qualifiers: Complication of substance-induced condition: uncomplicated Substance use status: with intoxication Qualified Code(s): F10.220 - Alcohol dependence with intoxication, uncomplicated (3) Desire for detoxification: Status: Acute Plan 1. Acute alcohol withdrawal-I have decided to taper the patient's phenobarb down to twice daily. #2 acute debility secondary to chronic alcoholism-patient states he would like to go to a care home facility if possible for short-term rehab services, social services aide will attempt to place him #3 acute cystitis-from E. coli-I have decided to take the patient off Cipro and place him on Macrobid due to the fact Macrobid is not absorbed into the bloodstream. #4 hyponatremia secondary to excessive beer intake-corrected at this time #5 essential hypertension-patient will remain on his present medications #6 hypothyroidism-patient is on Synthroid #7 degenerative disc disease of the lumbar spine secondary to osteoarthritis-I placed the patient on his outpatient dose of prednisone which she takes 2 weeks out of the month-according to the patient he alternates weeks #8 positive C. difficile antigen without toxin-patient remains on p.o. vancomycin, he is on Bentyl and Lomotil for diarrhea Total clinical time spent by myself addressing the patient's medical issues, reviewing all of his data, and collaborating with patient's care team: 35 minutes Medications at Discharge Home Medications losartan 100 mg tablet 100 mg PO DAILY #3 tabs 04/08/24 mirtazapine 15 mg tablet 15 mg PO QHS #3 tabs 04/08/24 nitroglycerin 0.4 mg sublingual tablet (Nitrostat) 0.4 mg sublingual Q5M PRN chest pain #3 tabs 04/08/24 albuterol sulfate 90 mcg/actuation aerosol inhaler 2 puff inhalation Q6H PRN PRN shortness of breath or wheezing 05/02/24 potassium chloride 10 mEq tablet,extended release 10 meq PO DAILY REPLACEMENT 05/03/24 dicyclomine 20 mg tablet 20 mg PO TID CRAMPS 05/08/25 hydroxyzine pamoate 50 mg capsule 50 mg PO Q6H PRN PRN ITCHING/ANXIETY 05/08/25 levothyroxine 75 mcg tablet 75 mcg PO DAILY THYROID 05/08/25 omeprazole 40 mg capsule,delayed release 40 mg PO DAILY STOMACH 05/08/25 ondansetron HCl 8 mg tablet 8 mg PO Q8H PRN PRN nausea and vomiting 05/08/25 pravastatin 80 mg tablet 80 mg PO QHS CHOLESTEROL 05/08/25 tamsulosin 0.4 mg capsule 0.4 mg PO DAILY URINE 05/08/25 tizanidine 4 mg tablet 4 mg PO Q6H PRN muscle spasticity 05/08/25 prazosin 5 mg capsule 5 mg PO QHS nightmares 05/10/25 nitrofurantoin monohydrate/macrocrystals 100 mg capsule 100 mg PO BID #7 caps 05/12/25 prednisone 20 mg tablet 20 mg PO BIDCM #0 tabs 05/12/25 vancomycin 125 mg capsule 125 mg PO 4XD #17 caps 05/12/25 Hospital Course Operations None Procedures None Summary of Care Provided Minutes Spent on Discharge: 31 Hospital Course: This 65-year-old white male was seen in the emergency room requesting detox services for alcohol substance use disorder. Patient was admitted to [place] [id number], he complained of diarrhea and stool samples were obtained which showed the patient to be positive for C. difficile PCR and his admission urinalysis grew out E. coli. Patient was treated with p.o. vancomycin and a short course of Cipro. Patient was seen by addiction social services aide, he told them that he desired admission to a care home facility as he felt he was unable to take care of himself. During the next several days, patient had large amounts of diarrhea and was not able to be discharged, in the meantime patient changed his mind and requested to go home. Patient had no evidence of DTs during his hospitalization, at times he had aggressive statements made inferring that he might hurt someone during his hospitalization. Nursing did not feel this was a sincere statement however. On 05/12/2025, patient was seen and examined: On examination he appeared in good health and spirits. Vital signs as documented. Skin warm and dry and without overt rashes. Neck without JVD, neck was supple, trachea midline, thyroid was normal. Lungs clear bilaterally, normal air movement was noted. Heart exam notable for regular rhythm, normal sounds and absence of murmurs, rubs or gallops. Abdomen unremarkable and without evidence of organomegaly, masses, or abdominal aortic enlargement. Bowel sounds are present, abdomen is not distended. Extremities nonedematous, no cyanosis was noted, no clubbing was noted. Neuro: Cranial nerves II through XII are grossly intact, no focal motor deficits were noted, sensation to light touch and pinprick intact, motor exam 5/5 throughout. Psych: Patient is alert and oriented x3, he does not appear anxious or depressed, he does not appear agitated. On 05/12/2025, patient appeared to be stable for discharge home. Medical Records Data Medical Nutrition Assessment Dietitian: Malnutrition Criteria Met Start: 05/12/25 13:48 Freq: Status: Active Protocol: Document 05/12/25 13:49 SLA (Rec: 05/12/25 13:49 SLA [id number]) Nutrition Malnutrition Evidence of Yes Malnutrition Exists Malnutrition (severe Acute Illness/Injury ): Evidenced By Suboptimal Energy Intake (Severe),Weight Loss (Severe) Intake Problem Inadequate Oral Intake Etiology related to GI dysfunction Signs/Symptoms as evidenced by need for clear liquid diet Status Active Problem Clinical Problem Acute Disease or Injury Related Malnutrition Etiology related to GI dysfunction and multiple episodes of diarrhea daily Signs/Symptoms as evidenced by po intake meeting <75% of est nutritional needs and 4% unintended wt loss x < 1 week Status Active Problem Recommendation Dietitian Will provide 8 oz ensure clear tid w/ meals for Recommendations/ increased nutrition if consumed Changes As medically able, rec NATALIA to Transitional diet w/ goal of CHO Control/ No Added Salt Will continue to follow and monitor for changes in pt nutritional status and make additional rec as indicated Weight / BMI Weight Weight: 91.5 kg Body Mass Index (BMI) 28.8 ABG / Lab / Microbiology Data 05/08/25 07:06 05/08/25 11:48 Microbiology: Microbiology 05/08/25 03:10 Urine, Clean Catch Urine Culture - Final Escherichia coli 05/08/25 11:30 Stool Stool Lactoferrin - Final 05/08/25 11:30 Stool Enteric Bacteriology - Final 05/08/25 11:30 Stool C. difficile GDH Antigen & Toxins - Final 05/08/25 11:30 Stool Clostridioides difficile (PCR) - Final D/C Instructions Weight Bearing Status: Full weight bearing DC O2, CPAP, BIPAP Needs Home O2 Discharge instructions: No Meaningful Use Info Meaningful Use Meaningful Use Diagnoses (Choose all that apply): None applicable Discharge Plan Admission Admit Date/Time: 05/08/25 01:36 Primary Reason for Your Visit: C. difficile colitis, urinary tract infection, alcohol detox Attending Provider: Rohan Bethea Primary Care Provider: Sudarshan Llanos Consulting Providers: Bang Vázquez Instructions Additional Instructions / Restrictions: I strongly recommend you follow-up with outpatient detox Discharge Orders/Prescriptions Prescriptions: New prednisone 20 mg Tablet 20 mg PO BIDCM Qty: 0 0RF nitrofurantoin monohyd/m-cryst 100 mg Capsule 100 mg PO BID Qty: 7 0RF vancomycin 125 mg capsule 125 mg PO 4XD Qty: 17 0RF Rx Instructions: 1 capsule 4 times a day starting tonight Continued nitroglycerin [Nitrostat] 0.4 mg tablet, sublingual 0.4 mg sublingual Q5M PRN (Reason: chest pain) Qty: 3 0RF Rx Instructions: do not exceed 3 doses per episode mirtazapine 15 mg tablet 15 mg PO QHS Qty: 3 0RF losartan 100 mg tablet 100 mg PO DAILY Qty: 3 0RF albuterol sulfate 90 mcg/actuation HFA aerosol inhaler 2 puff inhalation Q6H PRN PRN (Reason: shortness of breath or wheezing) potassium chloride 10 mEq tablet extended release 10 meq PO DAILY dicyclomine 20 mg tablet 20 mg PO TID hydroxyzine pamoate 50 mg capsule 50 mg PO Q6H PRN PRN (Reason: ITCHING/ANXIETY) levothyroxine 75 mcg tablet 75 mcg PO DAILY omeprazole 40 mg capsule,delayed release(DR/EC) 40 mg PO DAILY ondansetron HCl 8 mg tablet 8 mg PO Q8H PRN PRN (Reason: nausea and vomiting) pravastatin 80 mg tablet 80 mg PO QHS tamsulosin 0.4 mg capsule 0.4 mg PO DAILY tizanidine 4 mg tablet 4 mg PO Q6H PRN (Reason: muscle spasticity) prazosin 5 mg capsule 5 mg PO QHS Referrals / Follow Up: Sudarshan Llanos MD [Primary Care Provider] - Behavioral,Health [facility] [Group of Physicians] - 05/17/25 2:00 pm (You will need transportation to this appointment. ) Disposition Disposition (needs filled in before D/C Order can be placed): Home, Self Care Charges/Coding Visit Charges Inpatient E&M: 31252 Disch Hosp >30min
--- NOTE | 2025-05-12 15:42 | CASEMGMT ---
Addendum entered by Merari Tabares 05/12/25 16:11: PA submitted through Cover my meds. TC to [facility] pharmacy, [place], he states med cost is $36.04. PA states received. RN RORY into pt room, pt states he does not have any money with him. He asks RN RORY to call his ex . TC to ex . She states she will bring the money and will be here at 4:30pm to pick pt up. Updated pt nurse who states pt can be at main entrance by 4:30pm. Original Note: TC to [facility], pharmacist states they do not have the vancomycin in stock and he also states pt needs PA. [place]uster Code is [id number]. TC to [facility], spoke with Denita, they do have the med and will call to get rx trf'd.
== END 2025-05-12 16:20 | disposition home or self-care (01) | DRG 897 ==
LOC: ED 05-08 00:52 → MS3 05-08 02:12
PROVIDERS: Admitting Provider Internal Medicine; Emergency Provider Emergency Medicine; PCP Internal Medicine; Visit Provider Internal Medicine
DX: F10.239 Alcohol dependence with withdrawal, unspecified (principal); E87.1 Hypo-osmolality and hyponatremia; N30.00 Acute cystitis without hematuria; E11.22 Type 2 diabetes mellitus with diabetic chronic kidney disease; E11.40 Type 2 diabetes mellitus with diabetic neuropathy, unspecified; B96.20 Unspecified Escherichia coli [E. coli] as the cause of diseases classified elsewhere; K74.60 Unspecified cirrhosis of liver; N18.30 Chronic kidney disease, stage 3 unspecified; J44.9 Chronic obstructive pulmonary disease, unspecified; F12.10 Cannabis abuse, uncomplicated; I12.9 Hypertensive chronic kidney disease with stage 1 through stage 4 chronic kidney disease, or unspecified chronic kidney disease; F32.A Depression, unspecified; F10.229 Alcohol dependence with intoxication, unspecified; K70.9 Alcoholic liver disease, unspecified; K21.9 Gastro-esophageal reflux disease without esophagitis; M19.90 Unspecified osteoarthritis, unspecified site; G47.33 Obstructive sleep apnea (adult) (pediatric); R19.7 Diarrhea, unspecified; M54.40 Lumbago with sciatica, unspecified side; F17.220 Nicotine dependence, chewing tobacco, uncomplicated; F41.9 Anxiety disorder, unspecified; Z79.51 Long term (current) use of inhaled steroids; Z79.899 Other long term (current) drug therapy; Y90.8 Blood alcohol level of 240 mg/100 ml or more; M51.369 Other intervertebral disc degeneration, lumbar region without mention of lumbar back pain or lower extremity pain
CPT/HCPCS: 36415; 70450; 80048; 80053; 80307; 81001; 82077; 82607; 82746; 83630; 83735; 83930; 83935; 84100; 84443; 85025; 85610; 87077; 87086; 87088; 87177; 87186; 87209; 87493; 87506; 97162; 97166; 97530; 97535; 99285; 99406; A4216; J3030